=== PATIENT | female | born 1945 | race American Indian/Alaskan Native ===

== ENCOUNTER 2017-03-17 05:50 | Day surgery (SDC) | payer MEDICARE, OTHER ==
[~2017-03-17] VITALS: Ht 172.7 cm; Wt 79.4 kg
[~2017-03-17 05:50] MED LIST: ACETAMINOPHEN325 M1 PO; ALLOPURINOL300 MG PO; ASPIRIN EC325 MG PO; CYMBALTA60 MG PO; DUONEB 0.5 MG-33 ML IH; FLONASE2 SPRAY; GABAPENTIN300 MG PO; INDOMETHACIN25 MG PO; LANTUS SOL100 UNIT/1 SQ; LEVOTHYROXINE100 MCG PO; LIPITOR20 MG PO; LORATADINE10 MG PO; NORCO 5-325 TA1 EACH PO; NORVASC5 MG PO; OXYCONTIN20 MG PO; PENICILLIN V P250 MG PO; SEPTRA DS TABL1 EACH PO; SERTRALINE HCL100 MG PO; XANAX0.25 MG PO; ZOFRAN ODT4 MG PO; ZOFRAN ODT8 MG PO
--- NOTE | 2017-03-17 07:01 | NUR ---
warm blankets on. iv patent.
--- NOTE | 2017-03-17 07:13 | NUR ---
WITH RAYMOND AND VERSATAMARA ON BOARD, PT WAS STRUGGLING TO STAY AWAKE WHILE I WAS WITH HER. SHE HAD FAMILY THAT WAS VERY RECEPTIVE TO MY PRESENCE, AND ASKED IF I WOULD PRAY FOR THE PT WHILE I WAS PRESENT. FOLLOWING PRAYER, DR LALA CAME TO VISIT PT AND FAMILY. WILL FOLLOW NEEDED
--- NOTE | 2017-03-17 10:10 | NUR ---
03/17/17 1010 Izabel Alvarado 1003-PATIENT ARRIVED TO PACU ON 6L MASK O2 SAT 100% PATIENT REACTIVE EYES OPEN DENIES PAIN. SR WITH PAC RIGHT BBB HR 64. GLUCOSE 213. DRESSING TO LEFT FOOT CDI. JJ PEDAL PULSE. GOOD WARMTH DAVALOS REFILL LESS THAN 1 SECOND.
--- NOTE | 2017-03-17 12:34 | NUR ---
1210 AMB TO BR VOIDS QS. DRESSED AND READY TO GO HOME. NIECE UNDERSTANDS INSTRUCTIONS AND STATES ABLE TO ASSIST PT AT HOME.
--- NOTE | 2017-05-01 16:02 | OR ---
[facility] [address] [place], [place] [address] Signed PROCEDURE DATE: 03/17/17 PREOPERATIVE DIAGNOSES Hammertoe deformity, left foot, digits 1 through 4. Contracture of tendon and muscle, left foot, digits 2, 3, and 4. SURGEON: Chicho Lawson DPM RETAIL COVERAGE MERCHANDISER SURGEON: Ernie Manzanares DPM ESTIMATED BLOOD LOSS: Less than 5 cc or minimal. HEMOSTASIS: With ankle tourniquet. MATERIALS UTILIZED Two PIPJ hammertoe implants, one 2.0 screw and one 4.0 screw. The screws were cannulated. 4-0 Vicryl and 5-0 nylon were given. ANESTHESIA Anesthesia was provided by Casie Lang nurse supervisor opening and picking. Anesthesia was a regional anesthesia with popliteal block and IV sedation. PROCEDURE IN DETAIL The patient was brought into the operating room and placed upon the operating table in the supine position. Regional anesthesia was administered. Local anesthesia was also administered consisting of 15 cc of 1:1 mix of 2% lidocaine plain and 0.5% ropivacaine. The left foot was then scrubbed and prepped in the usual sterile technique. An Esmarch bandage was then wrapped around the patient's left foot and then wrapped around the ankle to act as tourniquet while being removed from the forefoot region. Attention was then directed to the dorsal aspect of the patient's left first digit. Two semi-elliptical converging incisions were performed over the IPJ, each incision was approximately 1.5 cm in length. The skin island was removed utilizing forceps and a 15-blade. [place]ka blade was then utilized to perform a transverse capsulotomy and tenotomy at the level of the IPJ via the original skin incision. The soft tissue was then freed from the head of the proximal phalanx. Collateral ligaments were also severed. A sagittal saw was utilized to remove the articular cartilage in the base of the distal phalanx and also portion of the head of the proximal phalanx. The toe was aligned and the cannulated screw was placed following standard AO fixation techniques. Attention was then directed to the patient's second, third, and fourth digits. Prominent extensor tendons and tight joint capsule was noted. A small incision running medial to laterally was performed over the joint areas of these digits, where the incisions were approximately 5 mm in length. A 64 Sitka blade was then utilized to perform a tenotomy Electronically Signed By: CHICHO LAWSON DPM 05/01/17 1602 PATIENT NAME: ARA CAMPOS OPERATIVE REPORT DATE OF : 47 PHYSICIAN: CHICHO LAWSON DPM REPORT #: [id number] REPORT IS CONFIDENTIAL AND NOT TO BE RELEASED WITHOUT AUTHORIZATION [facility] [address] [place], [place] [address] Signed and capsulotomy through the skin incision. Release of the soft tissue could be palpated with downward pressure of the digits. Following the release, the toes were more easily positioned into a rectus position. Attention was then directed to the dorsal aspect of the patient's second PIPJ digit. Two semi-elliptical converging incisions were performed at this time creating a skin island. This was removed with forceps, and a [place] blade was utilized to perform a transverse tenotomy and capsulotomy. The soft tissue was then reflected from the head of the proximal phalanx. A sagittal saw was then utilized to perform an osteotomy of the proximal phalanx removing the distal half of the head. Next, implant was then placed following factory guidelines in standard fixation techniques. A cannulated wire was driven from the base of the middle phalanx out the distal aspect of the digit. The base of the middle phalanx was repaired by denuding the articular surface. The implant was screwed into the base of the middle phalanx and then the stem of the implant placed into the medullary canal of the proximal phalanx and impacted bringing the distal aspect of the proximal phalanx and the base of the middle phalanx into close approximation. Skin stability was also noted. The same procedure was also performed on the third digit. Attention was then directed to the patient's fourth digit at the level of the PIPJ. Two semi-elliptical converging incisions were performed approximately 8 mm in length. The skin island was removed with forceps and a 15-blade. A 64-blade w a s utilized to perform a transverse tenotomy and capsulotomy at the level of PIPJ. Soft tissue was then reflected from the head of the proximal phalanx and the proximal phalanx. The head was then cut utilizing a sagittal saw removing the articular cartilage. The base of the middle phalanx cartilage was also denuded. A K-wire was passed through the base of the middle phalanx out the distal aspect of the digit and then retrograded back into the proximal phalanx medullary canal. A 2-0 screw was then placed utilizing the wire as the cannula. Positioning of the hardware was verified utilizing intraoperative fluoroscopy. Plating of the joint area was performed prior to fixation. The extensor tendons over the digits were then reapproximated and coapted utilizing a 4 -0 Vicryl. The skin was reapproximated and coapted utilizing 5-0 nylon in the interlocking suture technique. Stitching included areas over the joint regions, over the capsule and extensor tendon releases, and over the distal aspects of the digits as needed. Postoperative injection consisting of 5 mL of 0.5% ropivacaine, 1 mL of dexamethasone was injected about the patient's forefoot region. Surgical sites were then dressed with Betadine-soaked Adaptic, Betadine-soaked gauze, dry sterile gauze, fluff gauze, and Coban. The ankle tourniquet was removed. Prompt hyperemic response was noted to all digits of the patient's left foot. The patient tolerated both procedure and the anesthesia well, and following a period of postoperative monitoring, the patient was discharged to home with both written and oral instructions. Chicho Lawson DPM Electronically Signed By: CHICHO LAWSON DPM 05/01/17 1602 PATIENT NAME: ARA CAMPOS OPERATIVE REPORT DATE OF : 47 PHYSICIAN: CHICHO LAWSON DPM REPORT #: [id number] REPORT IS CONFIDENTIAL AND NOT TO BE RELEASED WITHOUT AUTHORIZATION [address] [place] [address] Signed SKY/Amy /[id number] Electronically Signed By: CHICHO LAWSON DPM 05/01/17 1602 PATIENT NAME: ARA CAMPOS OPERATIVE REPORT DATE OF : 47 PHYSICIAN: CHICHO LAWSON DPM REPORT #: [id number] REPORT IS CONFIDENTIAL AND NOT TO BE RELEASED WITHOUT AUTHORIZATION
== END 2017-03-17 12:15 | disposition home or self-care (01) ==
LOC: DS 05:50 → OPS 05:50 → DS 06:45 → OPS 06:45
PROVIDERS: Podiatrist Foot & Ankle Surgery
PROC: 0LXW0ZZ Transfer Left Foot Tendon, Open Approach (ICD-10-PCS; principal; 2017-03-17 06:45)
DX: M20.42 Other hammer toe(s) (acquired), left foot (principal); M62.472 Contracture of muscle, left ankle and foot; E11.9 Type 2 diabetes mellitus without complications; M19.90 Unspecified osteoarthritis, unspecified site; F17.210 Nicotine dependence, cigarettes, uncomplicated
CPT/HCPCS: 01480; 62322; 64445; 73620; 73630; 76942; C1713; C1769; J0690; J0735; J1100; J2250; J2704; J2795; J3010; J7120; L4386

== ENCOUNTER 2017-11-01 10:48 | Emergency (ER) | payer MEDICARE, OTHER ==
[~2017-11-01] VITALS: Ht 172.7 cm; Wt 79.4 kg
[~2017-11-01 10:48] MED LIST changes: +ARTIFICIAL TEAR15 M1 OPTH; +CALCIUM 500-VI1 EAC1 PO; +COZAAR50 MG PO; +DIFLUCAN150 MG PO; +DULOXETINE HCL20 MG; +FUROSEMIDE20 MG PO; +KEFLEX500 MG PO; +LEVOTHYROXINE75 MCG PO; +LIPITOR20 MG GT; +LITE COAT ASPI325 MG PO; +NEURONTIN100 MG PO; +OLOPATADINE HCL5 ML OD; +PANTOPRAZOLE SO40 MG PO
--- NOTE | 2017-11-01 21:36 | EKG ---
[facility] [address] [facility] [place] [address] Signed Sinus bradycardia with sinus arrhythmia Right bundle branch block Abnormal ECG Confirmed by GRACIELA GONZALES MD ([id number]) on 11/01/2017 9:36:22 PM Electronically Signed By: GRACIELA GONZALES MD 11/01/17 2136 PATIENT NAME: ANDRESARAJOHAN ANDRES Electrocardiogram DATE OF : 47 PHYSICIAN: GRACIELA GONZALES MD REPORT #: [id number] REPORT IS CONFIDENTIAL AND NOT TO BE RELEASED WITHOUT AUTHORIZATION
== END 2017-11-01 20:45 | disposition short-term general hospital (02) ==
LOC: ED 10:48
DX: E16.0 Drug-induced hypoglycemia without coma (principal); E11.649 Type 2 diabetes mellitus with hypoglycemia without coma; T38.3X5A Adverse effect of insulin and oral hypoglycemic [antidiabetic] drugs, initial encounter; N19 Unspecified kidney failure; R55 Syncope and collapse; I10 Essential (primary) hypertension; E11.40 Type 2 diabetes mellitus with diabetic neuropathy, unspecified; Z88.8 Allergy status to other drugs, medicaments and biological substances; Z79.4 Long term (current) use of insulin; Z79.899 Other long term (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; Z79.82 Long term (current) use of aspirin
CPT/HCPCS: 51702; 71045; 80053; 81001; 83605; 84484; 85025; 87040; 93005; 93010; 96361; 96374; 99285; J7030

== ENCOUNTER 2018-09-30 20:45 | Emergency (ER) | payer MEDICARE, OTHER ==
[~2018-09-30] VITALS: Ht 172.7 cm; Wt 79.4 kg
--- OUTSIDE RECORDS SUMMARY | 2018-09-30 20:50 | XMS ---
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 Mikala VISIT COUNT (12 MO.) [address] [place] [address] TOTAL 6 NOTE: Visits indicate total known visits. ED/UCC VISIT TRACKING (12 MO.) 09/30/2018 20:[address] [facility] TYPE: Emergency COMPLAINT: - CHEST PAIN 08/31/2018 02:[facility] [place] TYPE: Emergency DIAGNOSES: - Shortness of Breath - Fluid overload, unspecified - Congestion/Difficulty Breathing/Emesis 08/18/2018 17:[facility] [place] TYPE: Emergency DIAGNOSES: - Shortness of Breath - Pleural effusion, not elsewhere classified - End stage renal disease - Difficulty Breathing, Swollen Legs 07/07/2018 07:19 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 - Allergy status to other drugs, medicaments and biological substances status - Essential (primary) hypertension - Unspecified kidney failure - Drug-induced hypoglycemia without coma - Adverse effect of insulin and oral hypoglycemic [antidiabetic] drugs, initial encounter 10/01/2017 14:31 [facility] [place] TYPE: Emergency COMPLAINT: - HIGH BLOOD PRESSURE DIAGNOSES: - Unstable angina - Allergy status to other drugs, medicaments and biological substances status - Personal history of urinary (tract) infections - Chronic kidney disease, stage 4 (severe) - Localized swelling, mass and lump, lower limb, bilateral - Personal history of transient ischemic attack (TIA), and cerebral infarction without residual deficits - OTHER SPECIFIED POSTPROCEDURAL STATES - Hypothyroidism, unspecified - Type 2 diabetes mellitus with diabetic chronic kidney disease - Type 2 diabetes mellitus with diabetic neuropathy, unspecified - Acquired absence of left breast and nipple - Heart failure, unspecified - snf (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 - Major depressive disorder, single episode, unspecified - Other specified postprocedural states - Acquired absence of both cervix and uterus - Hypertensive heart and chronic kidney disease with heart failure and stage 1 through stage 4 chronic kidney disease, or unspecified chronic kidney disease - Other meterman (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 - Personal history of malignant neoplasm of breast - Allergy status to analgesic agent status INPATIENT VISIT TRACKING (12 MO.) 08/31/2018 02:09 [facility] [place] TYPE: General Medicine DIAGNOSES: - Pleural effusion, not elsewhere classified - Essential (primary) hypertension - Fluid overload, unspecified - Lobar pneumonia, unspecified organism 07/07/2018 07:19 [facility] [place] TYPE: General Medicine DIAGNOSES: - Lobar pneumonia, unspecified organism - Cough 11/01/2017 21:31 [facility] TYPE: Surgical Services DIAGNOSES: - Chronic kidney disease, stage 5 - Sepsis, unspecified organism - snf (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 - 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 or end stage renal disease - Hypothermia - Bacteremia - Dependence on renal dialysis - Essential (primary) hypertension - Type 2 diabetes mellitus with diabetic chronic kidney disease - End stage renal disease - Hypoglycemia - Hypothermia, initial encounter - Anemia in chronic kidney disease - needs AV shunt - Unspecified kidney failure - Hypoglycemia, unspecified - Unspecified severe protein-calorie malnutrition 10/01/2017 20:50 [facility] TYPE: Medical Surgical DIAGNOSES: - Anemia in chronic kidney disease - Hypertensive emergency - Chronic kidney disease, stage 4 (severe) - Heart failure, unspecified - Type 2 diabetes mellitus with diabetic chronic kidney disease - Other specified soft tissue disorders - Chest pain, unspecified - 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
[2018-09-30] MEDS ORDERED: SERTRALINE HCL50 MG PO (21:23)
--- NOTE | 2018-10-01 13:41 | EKG ---
[facility] [address] [facility] [place] [address] Signed Sinus rhythm with short TX Right bundle branch block Abnormal ECG When compared with ECG of 01-NOV-2017 11:13, Vent. rate has increased BY 26 BPM Questionable change in QRS duration Confirmed by OLLIE PALAFOX DO ([id number]) on 10/01/2018 1:41:23 PM Electronically Signed By: OLLIE PALAFOX DO 10/01/18 1341 PATIENT NAME: ARA CAMPOS Electrocardiogram DATE OF : 47 PHYSICIAN: OLLIE PALAFOX DO REPORT #: [id number] REPORT IS CONFIDENTIAL AND NOT TO BE RELEASED WITHOUT AUTHORIZATION
== END 2018-10-01 00:25 | disposition home or self-care (01) ==
LOC: ED 20:45
DX: R07.9 Chest pain, unspecified (principal); I10 Essential (primary) hypertension; F32.9 Major depressive disorder, single episode, unspecified; Z87.440 Personal history of urinary (tract) infections; E03.9 Hypothyroidism, unspecified; E11.40 Type 2 diabetes mellitus with diabetic neuropathy, unspecified; I25.10 Atherosclerotic heart disease of native coronary artery without angina pectoris; Z85.3 Personal history of malignant neoplasm of breast; Z87.891 Personal history of nicotine dependence; Z88.8 Allergy status to other drugs, medicaments and biological substances; Z79.4 Long term (current) use of insulin; Z79.899 Other long term (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
CPT/HCPCS: 71045; 80053; 84484; 85025; 93005; 93010; 96374; 96375; 99285-25; J1170; J2405

== ENCOUNTER 2018-11-18 10:29 | Emergency (ER) | payer MEDICARE, OTHER ==
[~2018-11-18] VITALS: Ht 172.7 cm; Wt 74.8 kg
[~2018-11-18 10:29] MED LIST changes: -LIPITOR20 MG GT; +SERTRALINE HCL50 MG PO
--- OUTSIDE RECORDS SUMMARY | 2018-11-18 10:42 | XMS ---
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 Care History Medical/Surgical 10/03/2018 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 \T\middot;\T\nbsp; PLEASE REFER PATIENT TO [facility] FOR NON EMERGENT MEDICAL NEEDS. \T\middot;\ T\nbsp; [facility] CAN SEE PATIENTS SAME DAY FOR APTS IF PATIENT CALLS FIRST THING IN THE MORNING. E.D. VISIT COUNT ([address] [facility] [address] [facility] TOTAL 5 NOTE: Visits indicate total known visits. ED/UCC VISIT TRACKING (12 MO.) 11/18/2018 10:38 [facility] [place] TYPE: Emergency COMPLAINT: - FALL/LOWER BACK PAIN 09/30/2018 20:46 [facility] [place] TYPE: Emergency COMPLAINT: - CHEST PAIN DIAGNOSES: - Chest pain, unspecified - Allergy status to other drugs, medicaments and biological substances status - Personal history of urinary (tract) infections - Personal history of nicotine dependence - Atherosclerotic heart disease of [place] coronary artery without angina pectoris - Major depressive disorder, single episode, unspecified - Essential (primary) hypertension - Hypothyroidism, unspecified - half-way (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 - Personal history of malignant neoplasm of breast - Other senior living (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 - Type 2 diabetes mellitus with diabetic neuropathy, unspecified 08/31/2018 02:09 [facility] [place] TYPE: Emergency DIAGNOSES: - Shortness of Breath - Fluid overload, unspecified - Congestion/Difficulty Breathing/Emesis 08/18/2018 17:10 [facility] ID TYPE: Emergency DIAGNOSES: - Shortness of Breath - Pleural effusion, not elsewhere classified - End stage renal disease - Difficulty Breathing, Swollen Legs 07/07/2018 07:19 [facility] [place] ID TYPE: Emergency DIAGNOSES: - Cough - Lobar pneumonia, unspecified organism - Pneumonia, unspecified organism - Cough - Shortness of Breath INPATIENT VISIT TRACKING (12 MO.) 08/31/2018 02:09 [facility] ID TYPE: General Medicine DIAGNOSES: - Pleural effusion, not elsewhere classified - Essential (primary) hypertension - Fluid overload, unspecified - Lobar pneumonia, unspecified organism 07/07/2018 07:19 [facility] ID TYPE: General Medicine DIAGNOSES: - Lobar pneumonia, unspecified organism - Cough [email or web address]
[2018-11-18] MEDS ORDERED: NORCO 5-325 TA1 EACH PO (13:52)
== END 2018-11-18 14:08 | disposition home or self-care (01) ==
LOC: ED 10:29
DX: S30.1XXA Contusion of abdominal wall, initial encounter (principal); I12.9 Hypertensive chronic kidney disease with stage 1 through stage 4 chronic kidney disease, or unspecified chronic kidney disease; E11.22 Type 2 diabetes mellitus with diabetic chronic kidney disease; N18.9 Chronic kidney disease, unspecified; E03.9 Hypothyroidism, unspecified; E11.40 Type 2 diabetes mellitus with diabetic neuropathy, unspecified; F32.9 Major depressive disorder, single episode, unspecified; I25.10 Atherosclerotic heart disease of native coronary artery without angina pectoris; Z85.3 Personal history of malignant neoplasm of breast; Z99.2 Dependence on renal dialysis; Z79.899 Other long term (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; Z88.8 Allergy status to other drugs, medicaments and biological substances; Z79.4 Long term (current) use of insulin; W01.10XA Fall on same level from slipping, tripping and stumbling with subsequent striking against unspecified object, initial encounter; Y92.002 Bathroom of unspecified non-institutional (private) residence as the place of occurrence of the external cause
CPT/HCPCS: 71046; 74176; 80053; 81001; 83690; 85025; 96374; 99284-25; J3010

== ENCOUNTER 2018-11-22 23:03 | Emergency (ER) | payer MEDICARE, OTHER ==
[~2018-11-22] VITALS: Ht 172.7 cm; Wt 74.8 kg
--- OUTSIDE RECORDS SUMMARY | 2018-11-22 23:06 | XMS ---
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 Care History Medical/Surgical 10/03/2018 [facility] \T\middot;\T\nbsp; PATIENT IS A [employer] MEMBER. \T\middot;\T\nbsp; PLEASE REFER PATIENT TO [facility] FOR NON EMERGENT MEDICAL NEEDS. \T\middot;\ T\nbsp; [facility] CAN SEE PATIENTS SAME DAY FOR APTS IF PATIENT CALLS FIRST THING IN THE MORNING. E.D. VISIT COUNT ([address] [facility] 3 [facility] TOTAL 6 NOTE: Visits indicate total known visits. ED/UCC VISIT TRACKING (12 MO.) 11/22/2018 23:03 [facility] [place] TYPE: Emergency COMPLAINT: - FALL 11/18/2018 10:38 [facility] [place] TYPE: Emergency COMPLAINT: - FALL/LOWER BACK PAIN DIAGNOSES: - Type 2 diabetes mellitus with diabetic neuropathy, unspecified - Left upper quadrant pain - Contusion of abdominal wall, initial encounter - manager intermediate (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 - Bathroom of unspecified non-institutional (private) residence single-family (private) house as the place of occurrence of the external cause - Personal history of malignant neoplasm of breast - Other manager intermediate (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 - Allergy status to other drugs, medicaments and biological substances status - Dependence on renal dialysis - Hypertensive chronic kidney disease with stage 1 through stage 4 chronic kidney disease, or unspecified chronic kidney disease - Type 2 diabetes mellitus with diabetic chronic kidney disease - Hypothyroidism, unspecified - Atherosclerotic heart disease of [place] coronary artery without angina pectoris - Major depressive disorder, single episode, unspecified - Chronic kidney disease, unspecified - Fall on same level from slipping, tripping and stumbling with subsequent striking against unspecified object, initial encounter 09/30/2018 20:[address] [facility] [place] TYPE: Emergency COMPLAINT: - CHEST PAIN DIAGNOSES: - Chest pain, unspecified - Allergy status to other drugs, medicaments and biological substances status - Personal history of urinary (tract) infections - Personal history of nicotine dependence - Atherosclerotic heart disease of [place] coronary artery without angina pectoris - Major depressive disorder, single episode, unspecified - Essential (primary) hypertension - Hypothyroidism, unspecified - correction (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 - Personal history of malignant neoplasm of breast - Other manager intermediate (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 - Type 2 diabetes mellitus with diabetic neuropathy, unspecified 08/31/2018 02:09 [facility] [place] TYPE: Emergency DIAGNOSES: - Shortness of Breath - Fluid overload, unspecified - Congestion/Difficulty Breathing/Emesis 08/18/2018 17:10 [facility] [place] TYPE: Emergency DIAGNOSES: - Shortness of Breath - Pleural effusion, not elsewhere classified - End stage renal disease - Difficulty Breathing, Swollen Legs 07/07/2018 07:19 [facility] [place] TYPE: Emergency DIAGNOSES: - Cough - Lobar pneumonia, unspecified organism - Pneumonia, unspecified organism - Cough - Shortness of Breath INPATIENT VISIT TRACKING (12 MO.) 08/31/2018 02:09 [facility] ID TYPE: General Medicine DIAGNOSES: - Pleural effusion, not elsewhere classified - Essential (primary) hypertension - Fluid overload, unspecified - Lobar pneumonia, unspecified organism 07/07/2018 07:19 [facility] ID TYPE: General Medicine DIAGNOSES: - Lobar pneumonia, unspecified organism - Cough [email or web address]
[2018-11-23] MEDS ORDERED: NORCO 5-325 TA1 EACH PO (01:27)
== END 2018-11-23 02:30 | disposition home or self-care (01) ==
LOC: ED 23:03
DX: S09.90XA Unspecified injury of head, initial encounter (principal); M25.511 Pain in right shoulder; M25.551 Pain in right hip; F32.9 Major depressive disorder, single episode, unspecified; E03.9 Hypothyroidism, unspecified; E11.40 Type 2 diabetes mellitus with diabetic neuropathy, unspecified; I10 Essential (primary) hypertension; I25.10 Atherosclerotic heart disease of native coronary artery without angina pectoris; Z85.3 Personal history of malignant neoplasm of breast; Z86.73 Personal history of transient ischemic attack (TIA), and cerebral infarction without residual deficits; Z87.440 Personal history of urinary (tract) infections; Z99.2 Dependence on renal dialysis; Z88.8 Allergy status to other drugs, medicaments and biological substances; Z79.899 Other long term (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; W01.10XA Fall on same level from slipping, tripping and stumbling with subsequent striking against unspecified object, initial encounter
CPT/HCPCS: 70450; 73030; 73502; 99284-25

== ENCOUNTER 2019-05-01 08:40 | Emergency (ER) | payer MEDICARE, OTHER ==
[~2019-05-01] VITALS: Ht 172.7 cm; Wt 74.8 kg
[~2019-05-01 08:40] MED LIST changes: +ASPIR 8181 MG PO; +CALCIUM ACETAT667 MG PO; +CEFEPIME HCL1 GM INJ; +CHOLECALCIFEROL1 GM MISC; +FUROSEMIDE80 MG PO; +HYDRALAZINE HCL25 MG PO; +LABETALOL HCL200 MG PO; +NEPHRO-VITE TA0.8 MG PO; +PERCOCET 5-3251 EACH PO; +VANCOMYCIN HCL500 MG IV
--- OUTSIDE RECORDS SUMMARY | 2019-05-01 08:44 | XMS ---
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 Security Console Attendant Events No recent Security Events currently on file CRITERIA MET - Group Notification - 6 ED Visits in [address] [facility] - Has Care Guidelines - PDMP - [facility] - 2 Visits in 30 Days CARE PROVIDERS YVETTE SIMON Physician Stone Setter: Surgical 11/23/2018-Current PHONE: Unknown Name Unknown Assisted Facility Current PHONE: [phone] RUI HODGE [facility] 10/03/2018-Current PHONE: Unknown PUJA IVEY Nurse Practitioner 04/04/2019-Current PHONE: [phone] [facility] Primary Care 01/11/2015-[facility] PHONE: Unknown Bertrand has no Care Guidelines for this patient. Care History Medical/Surgical 10/03/2018 [facility] \T\middot;\T\nbsp; PATIENT IS A [facility] MEMBER. \T\middot;\T\nbsp; PLEASE REFER PATIENT TO [facility] FOR NON EMERGENT MEDICAL NEEDS. \T\middot;\ T\nbsp; [facility] CAN SEE PATIENTS SAME DAY FOR APTS IF PATIENT CALLS FIRST THING IN THE MORNING. [facility].D. [facility]12 MO.) [facility] 7 [facility] TOTAL 11 NOTE: Visits indicate total known visits. ED/UCC VISIT TRACKING (12 MO.) 05/01/2019 08:41 [facility] [place] TYPE: Emergency COMPLAINT: - HIGH BP 04/27/2019 02:37 [facility] Goldberg [place] TYPE: Emergency COMPLAINT: - MULTIPLE COMPLAINT DIAGNOSES: - Unspecified injury of head, initial encounter - cash processor (current) use of aspirin - Hypothyroidism, unspecified - Dependence on renal dialysis - Strain of muscle, fascia and tendon at neck level, initial encounter - Type 2 diabetes mellitus with diabetic neuropathy, unspecified - Contusion of unspecified part of head, initial encounter - Essential (primary) hypertension - Allergy status to analgesic agent status - Type 2 diabetes mellitus with diabetic cataract - Concussion without loss of consciousness, initial encounter - Other intermediate (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 - Fall on same level from slipping, tripping and stumbling with subsequent striking against other object, initial encounter - Personal history of malignant neoplasm of breast - Allergy status to other drugs, medicaments and biological substances status 04/04/2019 17:35 RAD[facility] Goldberg [place] TYPE: Emergency COMPLAINT: - SHAKY,ALTERED LOC DIAGNOSES: - Allergy status to other drugs, medicaments and biological substances status - Weakness - Personal history of malignant neoplasm of breast - Other library services dean (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 - Type 2 diabetes mellitus with diabetic neuropathy, unspecified - Hypothyroidism, unspecified - 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 or end stage renal disease - Allergy status to analgesic agent status - Type 2 diabetes mellitus with diabetic chronic kidney disease - Type 2 diabetes mellitus with diabetic cataract - Dependence on renal dialysis - Personal history of transient ischemic attack (TIA), and cerebral infarction without residual deficits - FPC (current) use of aspirin - End stage renal disease - Major depressive disorder, single episode, unspecified 04/03/2019 14:36 [facility] [place] TYPE: Emergency COMPLAINT: - WEAKNESS DIAGNOSES: - Hypothyroidism, unspecified - Allergy status to analgesic agent status - Other intermediate (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 - Allergy status to other drugs, medicaments and biological substances status - Essential (primary) hypertension - FPC (current) use of aspirin - Type 2 diabetes mellitus with diabetic neuropathy, unspecified - Weakness - Type 2 diabetes mellitus with diabetic cataract - Personal history of transient ischemic attack (TIA), and cerebral infarction without residual deficits - Personal history of malignant neoplasm of breast 03/23/2019 17:03 [facility] Reina RomanAguila PERES TYPE: Emergency DIAGNOSES: - Pain in thoracic spine - Osteomyelitis, unspecified - back pain - Rib Pain - Discitis, unspecified, site unspecified 11/22/2018 23:03 RADHA Cuello TYPE: Emergency COMPLAINT: - FALL DIAGNOSES: - Essential (primary) hypertension - Atherosclerotic heart disease of [place] coronary artery without angina pectoris - Type 2 diabetes mellitus with diabetic neuropathy, unspecified - Personal history of transient ischemic attack (TIA), and cerebral infarction without residual deficits - Dependence on renal dialysis - Major depressive disorder, single episode, unspecified - Allergy status to other drugs, medicaments and biological substances status - Unspecified injury of head, initial encounter - Other library services dean (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 - Fall on same level from slipping, tripping and stumbling with subsequent striking against unspecified object, initial encounter - Hypothyroidism, unspecified - Personal history of malignant neoplasm of breast - Pain in right shoulder - Pain in right hip - Personal history of urinary (tract) infections 11/18/2018 10:38 RADHA Cuello TYPE: Emergency COMPLAINT: - FALL/LOWER BACK PAIN DIAGNOSES: - Type 2 diabetes mellitus with diabetic neuropathy, unspecified - Left upper quadrant pain - Contusion of abdominal wall, initial encounter - FPC (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 - Bathroom of unspecified non-institutional (private) residence single-family (private) house as the place of occurrence of the external cause - Personal history of malignant neoplasm of breast - Other library services dean (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 - Allergy status to other drugs, medicaments and biological substances status - Dependence on renal dialysis - Hypertensive chronic kidney disease with stage 1 through stage 4 chronic kidney disease, or unspecified chronic kidney disease - Type 2 diabetes mellitus with diabetic chronic kidney disease - Hypothyroidism, unspecified - Atherosclerotic heart disease of [place] coronary artery without angina pectoris - Major depressive disorder, single episode, unspecified - Chronic kidney disease, unspecified - Fall on same level from slipping, tripping and stumbling with subsequent striking against unspecified object, initial encounter 09/30/2018 20:46 RADHA Cuello TYPE: Emergency COMPLAINT: - CHEST PAIN DIAGNOSES: - Chest pain, unspecified - Allergy status to other drugs, medicaments and biological substances status - Personal history of urinary (tract) infections - Personal history of nicotine dependence - Atherosclerotic heart disease of [place] coronary artery without angina pectoris - Major depressive disorder, single episode, unspecified - Essential (primary) hypertension - Hypothyroidism, unspecified - FPC (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 - Personal history of malignant neoplasm of breast - Other intermediate (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 - Type 2 diabetes mellitus with diabetic neuropathy, unspecified 08/31/2018 02:09 [facility] TYPE: Emergency DIAGNOSES: - Shortness of Breath - Fluid overload, unspecified - Congestion/Difficulty Breathing/Emesis 08/18/2018 17:10 [facility] ID TYPE: Emergency DIAGNOSES: - Shortness of Breath - Pleural effusion, not elsewhere classified - End stage renal disease - Difficulty Breathing, Swollen Legs 07/07/2018 07:19 [facility] Moise ID TYPE: Emergency DIAGNOSES: - Cough - Lobar pneumonia, unspecified organism - Pneumonia, unspecified organism - Cough - Shortness of Breath INPATIENT VISIT TRACKING (12 MO.) 03/24/2019 00:55 [facility] Panchito PERES M.C. TYPE: Nephrology DIAGNOSES: - Dependence on renal dialysis - End stage renal disease - Essential (primary) hypertension - Osteomyelitis, unspecified - Type 2 diabetes mellitus with diabetic chronic kidney disease - cash processor (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 - Chronic kidney disease, stage 4 (severe) - Secondary multiple arthritis - Discitis, unspecified, thoracic region 12/04/2018 13[facility] DIAGNOSES: - Type 2 diabetes mellitus with diabetic chronic kidney disease - Renal osteodystrophy - FPC (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 - Fracture of unspecified part of neck of right femur, subsequent encounter for closed fracture with routine healing - Other malaise - Chronic kidney disease, stage 5 - Patient's noncompliance with other medical treatment and regimen - Fracture of unspecified part of neck of right femur, initial encounter for closed fracture - 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 or end stage renal disease - Chronic kidney disease, stage 4 (severe) - End stage renal disease - Anemia in chronic kidney disease 08/31/2018 02:09 [facility] ID TYPE: General Medicine DIAGNOSES: - Pleural effusion, not elsewhere classified - Essential (primary) hypertension - Fluid overload, unspecified - Lobar pneumonia, unspecified organism 07/07/2018 07:19 [facility] ID TYPE: General Medicine DIAGNOSES: - Lobar pneumonia, unspecified organism - Cough [email or web address]
[2019-05-01] MEDS ORDERED: CLONIDINE1 EAC2 TD (08:59)
[2019-05-01] MEDS ORDERED: LABETALOL HCL300 MG PO (09:00)
== END 2019-05-01 09:56 | disposition home or self-care (01) ==
LOC: ED 08:40
DX: I10 Essential (primary) hypertension (principal); R79.82 Elevated C-reactive protein (CRP); Z99.2 Dependence on renal dialysis; F32.9 Major depressive disorder, single episode, unspecified; E03.9 Hypothyroidism, unspecified; E11.40 Type 2 diabetes mellitus with diabetic neuropathy, unspecified; E11.36 Type 2 diabetes mellitus with diabetic cataract; Z85.3 Personal history of malignant neoplasm of breast; Z86.73 Personal history of transient ischemic attack (TIA), and cerebral infarction without residual deficits; Z88.8 Allergy status to other drugs, medicaments and biological substances; Z88.6 Allergy status to analgesic agent; Z79.899 Other long term (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; Z79.82 Long term (current) use of aspirin
CPT/HCPCS: 85651; 86140; 99283

== ENCOUNTER 2019-05-20 15:22 | Emergency (ER) | payer MEDICARE, OTHER ==
[~2019-05-20] VITALS: Ht 172.7 cm; Wt 74.8 kg
[~2019-05-20 15:22] MED LIST changes: +CLONIDINE1 EAC2 TD; +LABETALOL HCL300 MG PO
--- OUTSIDE RECORDS SUMMARY | 2019-05-20 15:24 | XMS ---
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 Security Control Board Operator Events No recent Security Events currently on file CRITERIA MET - Group Notification - 6 ED Visits in 6 Months - [facility] - Has Care Guidelines - PDMP - [facility] - 2 Visits in 30 Days CARE PROVIDERS YVETTE SIMON Physician Fire Range Technician: Surgical 11/23/2018-Current PHONE: Unknown Name Unknown Alf Facility Current PHONE: [phone] RUI HODGE [facility] 10/03/2018-Current PHONE: Unknown PUJA IVEY Nurse Practitioner 04/04/2019-Current PHONE: [phone] [facility] Primary Care 01/11/2015-[facility] PHONE: Unknown Bertrand has no Care Guidelines for this patient. Care History Medical/Surgical 10/03/2018 [facility] \T\middot;\T\nbsp; PATIENT IS A [facility] MEMBER. \T\middot;\T\nbsp; PLEASE REFER PATIENT TO [facility] FOR NON EMERGENT MEDICAL NEEDS. \T\middot;\ T\nbsp; [facility] CAN SEE PATIENTS SAME DAY FOR APTS IF PATIENT CALLS FIRST THING IN THE MORNING. E.D. VISIT COUNT (12 MO.) 1 [facility] 8 [facility] TOTAL 12 NOTE: Visits indicate total known visits. ED/UCC VISIT TRACKING (12 MO.) 05/20/2019 15:22 [facility] Goldberg [place] TYPE: Emergency COMPLAINT: - SOB 05/01/2019 08:41 RADHA Goldberg [place] TYPE: Emergency COMPLAINT: - HIGH BP DIAGNOSES: - long term care pharmacist (current) use of aspirin - Essential (primary) hypertension - Hypothyroidism, unspecified - Elevated C-reactive protein (CRP) - Dependence on renal dialysis - Allergy status to other drugs, medicaments and biological substances status - Personal history of transient ischemic attack (TIA), and cerebral infarction without residual deficits - Personal history of malignant neoplasm of breast - Major depressive disorder, single episode, unspecified - Type 2 diabetes mellitus with diabetic neuropathy, unspecified - Type 2 diabetes mellitus with diabetic cataract - Other mcfp (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 - Allergy status to analgesic agent status 04/27/2019 02:37 RAD[facility] Goldberg [place] TYPE: Emergency COMPLAINT: - MULTIPLE COMPLAINT DIAGNOSES: - Unspecified injury of head, initial encounter - long term care pharmacist (current) use of aspirin - Hypothyroidism, unspecified [...] loss of consciousness, initial encounter - Other mcfp (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 - Fall on same [...] of malignant neoplasm of breast - Other mcfp (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 - Type 2 diabetes [...] and cerebral infarction without residual deficits - long term care pharmacist (current) use of aspirin - End stage renal disease - Major depressive disorder, single episode, unspecified 04/03/2019 14:36 RADHA Cuello TYPE: Emergency COMPLAINT: - WEAKNESS DIAGNOSES: - Hypothyroidism, unspecified - Allergy status to analgesic agent status - Other mcfp (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 - Allergy status to other drugs, medicaments and biological substances status - Essential (primary) hypertension - intermediate (current) use of aspirin - Type 2 diabetes mellitus with diabetic neuropathy, unspecified - Weakness - Type 2 diabetes mellitus with diabetic cataract - Personal history of transient ischemic attack (TIA), and cerebral infarction without residual deficits - Personal history of malignant neoplasm of breast 03/23/2019 17[facility] DIAGNOSES: - Pain in thoracic spine - Osteomyelitis, unspecified - back pain - Rib Pain - Discitis, unspecified, site unspecified 11/22/2018 23:03 RADHA Cuello TYPE: Emergency COMPLAINT: - FALL DIAGNOSES: - Essential (primary) hypertension - Atherosclerotic heart disease of [place] coronary artery without angina pectoris - Type 2 diabetes mellitus with diabetic neuropathy, unspecified - Personal history of transient ischemic attack (TIA), and cerebral infarction without residual deficits - Dependence on renal dialysis - Major depressive disorder, single episode, unspecified - Allergy status to other drugs, medicaments and biological substances status - Unspecified injury of head, initial encounter - Other terminal press operator (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 - Fall on same level from slipping, tripping and stumbling with subsequent striking against unspecified object, initial encounter - Hypothyroidism, unspecified - Personal history of malignant neoplasm of breast - Pain in right shoulder - Pain in right hip - Personal history of urinary (tract) infections 11/18/2018 10:38 RAD[facility] Goldberg [place] TYPE: Emergency COMPLAINT: - FALL/LOWER BACK PAIN DIAGNOSES: - Type 2 diabetes mellitus with diabetic neuropathy, unspecified - Left upper quadrant pain - Contusion of abdominal wall, initial encounter - intermediate (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 - Bathroom of unspecified non-institutional (private) residence single-family (private) house as the place of occurrence of the external cause - Personal history of malignant neoplasm of breast - Other mcfp (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 - Allergy status to other drugs, medicaments and biological substances status - Dependence on renal dialysis - Hypertensive chronic kidney disease with stage 1 through stage 4 chronic kidney disease, or unspecified chronic kidney disease - Type 2 diabetes mellitus with diabetic chronic kidney disease - Hypothyroidism, unspecified - Atherosclerotic heart disease of [place] coronary artery without angina pectoris - Major depressive disorder, single episode, unspecified - Chronic kidney disease, unspecified - Fall on same level from slipping, tripping and stumbling with subsequent striking against unspecified object, initial encounter 09/30/2018 20:46 RAD[facility] Goldberg [place] TYPE: Emergency COMPLAINT: - CHEST PAIN DIAGNOSES: - Chest pain, unspecified - Allergy status to other drugs, medicaments and biological substances status - Personal history of urinary (tract) infections - Personal history of nicotine dependence - Atherosclerotic heart disease of [place] coronary artery without angina pectoris - Major depressive disorder, single episode, unspecified - Essential (primary) hypertension - Hypothyroidism, unspecified - long term care pharmacist (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 - Personal history of malignant neoplasm of breast - Other terminal press operator (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 - Type 2 diabetes mellitus with diabetic neuropathy, unspecified 08/31/2018 02:09 [facility] ID TYPE: Emergency DIAGNOSES: - Shortness of Breath - Fluid overload, unspecified - Congestion/Difficulty Breathing/Emesis 08/18/2018 17:10 [facility] ID TYPE: Emergency DIAGNOSES: - Shortness of Breath - Pleural effusion, not elsewhere classified - End stage renal disease - Difficulty Breathing, Swollen Legs 07/07/2018 07:19 [facility] ID TYPE: Emergency DIAGNOSES: - Cough - Lobar pneumonia, unspecified organism - Pneumonia, unspecified organism - Cough - Shortness of Breath INPATIENT VISIT TRACKING (12 MO.) 03/24/2019 00:55 [facility] Panchito PERES M.C. TYPE: Nephrology DIAGNOSES: - Dependence on renal dialysis - End stage renal disease - Essential (primary) hypertension - Osteomyelitis, unspecified - Type 2 diabetes mellitus with diabetic chronic kidney disease - intermediate (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 - Chronic kidney disease, stage 4 (severe) - Secondary multiple arthritis - Discitis, unspecified, thoracic region 12/04/2018 13:34 [facility] DIAGNOSES: - Type 2 diabetes mellitus with diabetic chronic kidney disease - Renal osteodystrophy - intermediate (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 - Fracture of [...] Anemia in chronic kidney disease 08/31/2018 02:[facility] Moise ID TYPE: General Medicine DIAGNOSES: - Pleural effusion, not elsewhere classified - Essential (primary) hypertension - Fluid overload, unspecified - Lobar pneumonia, unspecified organism 07/07/2018 07:19 [facility] Moise ID TYPE: General Medicine DIAGNOSES: - Lobar pneumonia, unspecified organism - Cough [email or web address]
== END 2019-05-20 19:10 | disposition short-term general hospital (02) ==
LOC: ED 15:22
DX: I13.0 Hypertensive heart and chronic kidney disease with heart failure and stage 1 through stage 4 chronic kidney disease, or unspecified chronic kidney disease (principal); I50.9 Heart failure, unspecified; N18.6 End stage renal disease; E11.40 Type 2 diabetes mellitus with diabetic neuropathy, unspecified; E11.36 Type 2 diabetes mellitus with diabetic cataract; Z99.2 Dependence on renal dialysis; Z85.3 Personal history of malignant neoplasm of breast; Z88.6 Allergy status to analgesic agent; Z88.3 Allergy status to other anti-infective agents; Z88.8 Allergy status to other drugs, medicaments and biological substances; Z79.82 Long term (current) use of aspirin; Z79.899 Other long term (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
CPT/HCPCS: 71045; 80053; 83880; 84484; 85025; 99285-25

== ENCOUNTER 2019-07-27 14:46 | Emergency (ER) | payer MEDICARE, OTHER ==
[~2019-07-27] VITALS: Ht 172.7 cm; Wt 74.8 kg
--- OUTSIDE RECORDS SUMMARY | ~2019-07-27 | XMS | Encounter Summary ---
Demographics + + + | Address | [address] | | | [place] [address] | + + + | Home Phone | | + + + | Preferred Language | Unknown | + + + | Marital Status | Single | + + + | Yazidism Affiliation | Unknown | + + + | Race | Unknown | + + + | Ethnic Group | Unknown | + + + Author + + + | Author | [facility] | | | and [place] | + + + | Organization | [facility] | | | and [place] | + + + | Address | Unknown | + + + | Phone | Unavailable | + + + Support + + + + + | Name | Relationship | Address | Phone | + + + + + | India Tilley | ECON | [address] | | | | | [place], [place] | | | | | [address] | | + + + + + | Yina La | ECON | Unknown | | + + + + + | Yina Peterson | ECON | Unknown | | + + + + + | Leatha Casillas | ECON | Unknown | | + + + + + Care Team Providers + +------+ + | Care Locks Inspector Name | Role | Phone | + +------+ + PCP | Unavailable | + +------+ + Encounter Details +--------+ + + + + | Date | Type | Department | Care Team | Description | +--------+ + + + + | 11/08/ | [facility] | [facility] | Provider, | | | 2018 | Exam | [facility] | [address] | | | | | IMAGING | [address] | | | | | [phone] | [place] [address] | | +--------+ + + + + Social History + +-------+ +--------+------+ | Tobacco Use | Types | Packs/Day | Years | Date | | | | | Used | | + +-------+ +--------+------+ | Never Assessed | | | | | + +-------+ +--------+------+ + + + | Sex Assigned at [...] + + documented as of this encounter Plan of Treatment Not on filedocumented as of this encounter Procedures + +--------+ + + + | Procedure Name | Priori | Date/Time | Associated Diagnosis | Comments | | | ty | | | | + +--------+ + + + | XR CHEST 2 VIEWS | Routin | 12/17/2007 | | Results for this | | | e | 2:30 PM | | procedure are in the | | | | PDT | | results section. | + +--------+ + + + documented in this encounter Results XR Chest 2 VW (12/17/2007 2:30 PM PDT) + + | Specimen | + + | | + + + + + | Narrative | Performed At | + + + | External films for comparison only - no result from [place]. | [facility] | + + + + +---------+ + + | Performing | Address | City/State/Zipcode | Phone Number | | Organization | | | | + +---------+ + + | [facility] | | | | + +---------+ + + documented in this encounter Visit Diagnoses Not on filedocumented in this encounter"
--- OUTSIDE RECORDS SUMMARY | ~2019-07-27 | XMS | Encounter Summary ---
Demographics + + + | Address | [address] | | | [place] [address] | + + + | Home Phone | | + + + | Preferred Language | Unknown | + + + | Marital Status | Single | + + + | Mandaen Affiliation | Unknown | + + + | Race | Unknown | + + + | Ethnic Group | Unknown | + + + Author + + + | Author | [facility] | | | and [place] | + + + | Organization | [facility] | | | and [place] | + + + | Address | Unknown | + + + | Phone | Unavailable | + + + Support + + + + + | Name | Relationship | Address | Phone | + + + + + | India Tilley | ECON | [address] | | | | | [place], [place] | | | | | [address] | | + + + + + | Yina La | ECON | Unknown | | + + + + + | Yina Peterson | ECON | Unknown | | + + + + + | Leatha Casillas | ECON | Unknown | | + + + + + Care Team Providers + +------+ + | Care Shoe Planner Name | Role | Phone | + +------+ + | Renato villarreal DIPESH | PCP | | + +------+ + Reason for Visit + + + | Reason | Comments | + + + | Surgery Appointment | | + + + Encounter Details +--------+ + + + + | Date | Type | Department | Care Team | Description | +--------+ + + + + | 07/26/ | Telephone | [facility] | Francisca Robert, | Surgery Appointment | | 2019 | | VASCULAR SURGERY | RN | | | | | [address] | | | | | | [place] | | | | | | [address] | | | | | | [phone] | | | +--------+ + + + + Social History + +-------+ +--------+------+ | Tobacco Use | Types | Packs/Day | Years | Date | | | | | Used | | + +-------+ +--------+------+ | Current Every Day | | | | | | Smoker | | | | | + [...] do you have serious | No | 03/31/2019 | | difficulty hearing? | | | + + + + | Are you blind or do you have serious | No | 03/31/2019 | | difficulty seeing, even when wearing | | | | glasses? | | | + + + + | Do you have serious difficulty walking or | No | 03/31/2019 | | climbing stairs? (5 years old or older) | | | + + + + | Do you have difficulty dressing or bathing? | No | 03/31/2019 | | (5 years old or older) | | | + + + + | Because of a physical, mental, or emotional | No | 03/31/2019 | | condition, do you have difficulty [...] physical, mental, or emotional | No | 03/31/2019 | | condition, do you have serious difficulty | | | | concentrating, remembering, or making | | | | decisions? (5 years old or older) | | | + + + + documented as of this encounter Plan of Treatment Not on filedocumented as of this encounter Visit Diagnoses Not on filedocumented in this encounter"
--- OUTSIDE RECORDS SUMMARY | ~2019-07-27 | XMS | Encounter Summary ---
Demographics + + + | Address | [address] | | | [place] [address] | + + + | Home Phone | | + + + | Preferred Language | Unknown | + + + | Marital Status | Single | + + + | Yarsani Affiliation | Unknown | + + + | Race | Unknown | + + + | Ethnic Group | Unknown | + + + Author + + + | Author | [facility] | | | and [place] | + + + | Organization | [facility] | | | and [place] | + + + | Address | Unknown | + + + | Phone | Unavailable | + + + Support + + + + + | Name | Relationship | Address | Phone | + + + + + | India Tilley | ECON | [address] | | | | | [place], [place] | | | | | [address] | | + + + + + | Yina La | ECON | Unknown | | + + + + + | Yina Peterson | ECON | Unknown | | + + + + + | Leatha Casillas | ECON | Unknown | | + + + + + Care Team Providers + +------+ + | Care Marketing Rep Name | Role | Phone | + +------+ + PCP | Unavailable | + +------+ + Reason for Visit +---------+ + | Reason | Comments | +---------+ + | Post Op | Creation of RIGHT AV Fistula, RIGHT transposition of basilic | | | vein. | +---------+ + Evaluate & Treat (Routine) +--------+ + + + + + | Status | Reason | Specialty | Diagnoses / | Referred By | Referred To | | | | | Procedures | Contact | Contact | +--------+ + + + + + | Closed | Specialty | Surgery / | Diagnoses | Stroemel, | Field, | | | Services | General | Chronic | Gopi Roman, | Santos Donato, | | | Required | Surgery | kidney | DO [address] | [address] | | | | | disease, | [place], [place] | [address] | | | | | stage V | [address] | [place], | | | | | ([facility]) | [facility], [place] | [place] [address] | | | | | | [address] | Phone: | | | | | | Phone: | [phone] | | | | | | [phone] | Fax: | | | | | | Fax: | [phone] | | | | | | [phone] | | +--------+ + + + + + Encounter Details +--------+---------+ + + + | Date | Type | Department | Care Team | Description | +--------+---------+ + + + | 01/10/ | Office | [facility] | Santos Stephenson | Chronic kidney | | 2018 | Visit | SURGERY [address] | MD Glenn FACS [address] | disease, stage V | | | | [place], [place] | [address] | (HCC) (Primary Dx); | | | | [address] | [place] [address] | Post-operative state | | | | [phone] | [phone] | | | | | | | | +--------+---------+ + + + Social History + +-------+ [...] + + + | Blood Pressure | - | - | | + + + + + | Pulse | 85 | 01/10/2018 1:22 PM | | | | | PDT | | + + + + + | Temperature | 36.8 C (98.3 F) | 01/10/2018 1:22 PM | | | | | PDT | | + + + + + | Respiratory Rate | - | - | | + + + + + | Oxygen Saturation | 99% | 01/10/2018 1:22 PM | | | | | PDT | | + + + + + | Inhaled Oxygen | - | - | | | Concentration | | | | + + + + + | Weight | 77.6 kg (171 lb 1.2 | 01/10/2018 1:22 PM | | | | oz) | PDT | | + + + + + | Height | 172.7 cm (5' 8") | 01/10/2018 1:22 PM | | | | | PDT | | + + + + + | Body Mass Index | 26.01 | 01/10/2018 1:22 PM | | | | | PDT | | + + + + + documented in this encounter Progress Notes Santos Stephenson MD, FACS - 01/10/2018 1:30 PM PDTFormatting of this note might be diff erent from the original. Patient Identification: Estefani Tilley 1945 Is a 72 y.o. female , a patien t of Francisca Womack PA-C. Patient is here alone. S: Date of surgery: 01/04/2018. Title of surgery: Creation of RIGHT AV Fistula, RIGHT herring sposition of basilic vein. Physician notes: Patient arrives 6 day(s) s/p Creation of RIGHT AV Fistula, RIGHT transposition of basilic v ein. She reports being in more pain following surgery then she originally anticipated. She states she has had a lot of drainage into the bulb. Reports slight pain in her RIGHT hand. Patient is currently being dialyzed. Just had dialysis this AM. PAST MEDICAL HISTORY Past Medical History: Diagnosis Date Anemia Arthritis Back pain Breast cancer (HCC) Cancer (HCC) Diabetes (HCC) Heart disease Hemodialysis patient (HCC) mon-wed-fri History of blood clots Hypercholesteremia Hypertension Hypothyroidism Renal failure Seasonal allergies Past Surgical History: Procedure Laterality Date APPENDECTOMY EYE SURGERY 2008 HYSTERECTOMY MASTECTOMY 2006 left ear NOSE SURGERY 2008 SHUNT PLACEMENT/INSERTION N/A 11/08/2017 Procedure: Tunneled Hemodialysis Catheter Placement; Surgeon: Nora Leo MD; Location : [facility] MAIN OR VEIN SURGERY Right 01/04/2018 Procedure: Right Transposed Basilic Vein to Proximal Radial Artery; Surgeon: Santos Stephenson MD, FACS; Location: [facility] MAIN OR Allergies Allergen Reactions Lisinopril Pt states she does not remember what was the reaction she had to lisinopril. I asked her if it gave her a cough and she said "I cant remember, maybe it made me sick to my stomach". Naproxen Medications: Outpatient Encounter Prescriptions as of 01/10/2018 Medication Sig Dispense Refill acetaminophen-codeine (TYLENOL #3) 300-30 mg per tablet Take 2 tablets by mouth Twice daily as needed for Pain. Alcohol Swabs 70 % PADS by Does not apply route. amLODIPine (NORVASC) 10 MG tablet Take 1 tablet by mouth Daily. 50 tablet 0 amoxicillin-clavulanate (AUGMENTIN) 500-125 mg per tablet Take 1 tablet by mouth Daily. artificial tears (AKWA TEARS) ophthalmic ointment Place into both eyes every hour as n eeded for Dry Eyes. aspirin 325 mg tablet Take 325 mg by mouth Daily. atorvaSTATin (LIPITOR) 20 mg tablet Take 20 mg by mouth nightly. b complex-vitamin c-folic acid (NEPHRO-MANUEL) tablet Take 1 tablet by mouth Daily. calcium-vitamin D (CALCIUM 600-D) 600 mg-400 units per tablet Take 1 tablet by mouth 2 times daily. cholecalciferol (VITAMIN D-3) 2000 units TABS Take 2,000 Units by mouth Daily. epoetin karthik (EPOGEN, PROCRIT) 10,000 units/mL injection Inject 1 mL under the skin Thr ee times a week. 0 furosemide (LASIX) 80 mg tablet Take 1 tablet by mouth Daily. 50 tablet 0 gabapentin (NEURONTIN) 100 mg capsule Take 200 mg by mouth 3 times daily. Take Two (2) capsules by mouth every morning and take Two (2) capsules every evening and take one (1)caps ule at noon if needed for Neuropathy - per Med list received from Dr. Womack office 8. Glucose Blood (TRUE METRIX BLOOD GLUCOSE TEST ) by In Vitro route. HYDROcodone-acetaminophen (NORCO) 5-325 mg per tablet Take 1-2 tablets by mouth every 4 hours as needed for Pain. 30 tablet 0 insulin glargine (LANTUS SOLOSTAR) 100 units/mL injection (pen) Inject 20 Units under t he skin nightly. Insulin Pen Needle 31G X 5 MM MISC by Does not apply route. labetalol (NORMODYNE) 200 mg tablet Take 1 tablet by mouth 2 times daily. 100 tablet 0 Lancets MISC by Does not apply route. levothyroxine (SYNTHROID, LEVOTHROID) 75 MCG tablet Take 75 mcg by mouth every morning (before breakfast). loratadine (CLARITIN) 10 mg tablet Take 1 tablet by mouth Daily as needed for Allergies . 30 tablet losartan (COZAAR) 25 mg tablet Take 1 tablet by mouth Daily. (Patient taking differentl y: Take 100 mg by mouth Daily.) 50 tablet 0 olopatadine (PATANOL) 0.1% ophthalmic solution Place 1 drop into both eyes 2 times maite y. pantoprazole (PROTONIX) 40 mg tablet Take 40 mg by mouth every morning (before breakfas t). UNABLE TO FIND Med Name: Cadoexomer Iodine 0.9 % gel. Apply a small amount to affected area as directed during dressing changes. No facility-administered encounter medications on file as of 01/10/2018. Family History Problem Relation Age of Onset Diabetes Other grandfather Diabetes Other grandmother Cancer Sister Social History: She reports that she has never smoked. She has never used smokeless tobacco. She reports th at she does not drink alcohol or use drugs. PHYSICAL EXAM Vitals: 01/10/18 1322 Pulse: 85 Temp: 36.8 C (98.3 F) TempSrc: Temporal SpO2: 99% Weight: 77.6 kg (171 lb 1.2 oz) Height: 1.727 m (5' 8") Body mass index is 26.01 kg/m. General Appearance: Alert, cooperative, no distress, appears stated age Skin: Warm and dry Upper Extremities: RIGHT arm has good thrill in the graft. Incisions clean and dry. JANUARY drain removed Palpable Pulses: RIGHT LEFT Brachial Radial absent Ulnar absent Neurologic: Alert and oriented x3,Moving all 4 extremities. , Gait normal Assessment 1. Chronic kidney disease, stage V (HCC) 2. Post-operative state Plan 1) S/P Creation of RIGHT AV Fistula, RIGHT transposition of basilic vein. Patient recovering well post surgery. Return to clinic in one month. Declined giving patient further pain meds. Santos Stephenson MD, FACS Vascular and General Surgery I Karena Valle am acting as a scribe on behalf of, and in the presence of Santos kulkarni MD, FACS. I have reviewed and edited this note. Karena Valle CMA 01/10/18 I, Santos Stephenson MD, FACS, personally performed the services described in this docume ntation, as scribed by Karena Valle CMA in my presence, and it is both accurate and complet e. Karena Valle CMA 01/10/2018 14:04 documented glenn mcgraw this encounter Plan of Treatment Not on filedocumented as of this encounter Visit Diagnoses + + | Diagnosis | + + | Chronic kidney disease, stage V ([facility]) - Primary Chronic kidney disease, Stage V | + + | Post-operative state Other postprocedural status | + + documented in this encounter
--- OUTSIDE RECORDS SUMMARY | ~2019-07-27 | XMS | Encounter Summary ---
Demographics + + + | Address | [address] | | | [place] [address] | + + + | Home Phone | | + + + | Preferred Language | Unknown | + + + | Marital Status | Single | + + + | Synagogue Affiliation | Unknown | + + + | Race | Unknown | + + + | Ethnic Group | Unknown | + + + Author + + + | Author | [facility] | | | and [place] | + + + | Organization | [facility] | | | and [place] | + + + | Address | Unknown | + + + | Phone | Unavailable | + + + Support + + + + + | Name | Relationship | Address | Phone | + + + + + | India Tilley | ECON | [address] | | | | | [place], [place] | | | | | [address] | | + + + + + | Yina La | ECON | Unknown | | + + + + + | Yina Peterson | ECON | Unknown | | + + + + + | Leatha Casillas | ECON | Unknown | | + + + + + Care Team Providers + +------+ + | Care Staff Development Coordinator Rn Name | Role | Phone | + [...] | CONVERSION [address] | MD [address] [facility] | | | | | [address] | [place], [place] | | | | | [place], [place] | [address] | | | | | [address] | | | | | | [phone] | | | +--------+ + + + [...]
--- OUTSIDE RECORDS SUMMARY | ~2019-07-27 | XMS | Encounter Summary ---
Demographics + + + | Address | [address] | | | [place] [address] | + + + | Home Phone | | + + + | Preferred Language | Unknown | + + + | Marital Status | Single | + + + | Latter-Day Affiliation | Unknown | + + + | Race | Unknown | + + + | Ethnic Group | Unknown | + + + Author + + + | Author | [facility] | | | and [place] | + + + | Organization | [facility] | | | and [place] | + + + | Address | Unknown | + + + | Phone | Unavailable | + + + Support + + + + + | Name | Relationship | Address | Phone | + + + + + | India Tilley | ECON | [address] | | | | | [place], [place] | | | | | [address] | | + + + + + | Yina La | ECON | Unknown | | + + + + + | Yina Peterson | ECON | Unknown | | + + + + + | Leatha Casillas | ECON | Unknown | | + + + + + Care Team Providers + +------+ + | Care Forest Officer Name | Role | Phone | + +------+ + PCP | Unavailable | + +------+ + Reason for Referral Diagnostic/Screening (Emergency) + +--------+ + + + + | Status | Reason | Specialty | Diagnoses / | Referred By | Referred To | | | | | Procedures | Contact | Contact | + +--------+ + + + + | Authorized | | Radiology | Diagnoses | Echaiz | [facility] | | | | | Infection | Nick Miller | [address] | | | | | of | Paulie | NAKITA RASHID | | | | | 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 [address] | [address] | | | | | al disc | [address] | [place], [place] | | | | | (pyogenic), | [place], [place] | [address] | | | | | thoracic | [address] | Phone: | | | | | region ([facility]) | Phone: | [phone] | | | | | | [phone] | Fax: | | | | | 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: | [phone] | | | | | s of | [phone] | | | | | | thoracic [...] | | | Contrast | | | + +--------+ + + + + Reason for Visit [...] Authorized | | Infectious | Diagnoses | Cecilia | Cesar | | | | Diseases | | Mat Bolaños, | Infectious | | | | | Osteomyeliti | [address] | Disease [address] | | | | | s of | KYRIE HERNANDEZ | [place] [address] | | | | | vertebra, | [place], | [place] | | | | | site | [place] [address] | [address] | | | | | unspecified | Phone: | Phone: | | | | | ([facility]) | [phone] | [phone] | | | | | Procedures | Fax: | Fax: | | | | | NE OFFICE | [phone] | [phone] | | | | | OUTPATIENT | | | | | | | NEW 60 | | | | | | | MINUTES | | | + +--------+ + + + + Encounter Details +--------+---------+ + + + | Date | Type | Department | Care Team | Description | +--------+---------+ + + + | 05/18/ | Office | [facility] | Fabiana Miller, | 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 | 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 | Nick Apodaca MD | intervertebral disc | | | | [address] | [address] | (pyogenic), thoracic | | | | [place], [place] | [place] [address] | region ([facility]) | | | | [address] | [phone] | (Primary Dx); | | | | [phone] | | Osteomyelitis of | | | | | | thoracic vertebra | | | | | | ([facility]); | | | | | | Osteoarthritis, [...] dialysis | | | | | | ([facility]) | +--------+---------+ + + + Social History [...] 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 Complete MRI as soon as possible. Complete lab testing today.Electronically signed by Nick Miller MD at 01/2019 2:01 PM PDT documented in this encounter Progress Notes Nick Pritchard MD - 05/18/2019 1:20 PM PDT [facility]: Infectious Diseases Initial Outpatient Consult Note [...] with diabetic nephropathy, with dialysis via a [facility] upper extremity AV fistula on Wednesdays and Fridays, seen in consultation for p ossible discitis and osteomyelitis. History is obtained from: Patient, limited medical records from outside referring provider. The patient presents to clinic referred by Dr. Mat Brooks from orthopedic surgery in [facility]. 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 The patient states that she was on [...] W/CANNULATED SCREWS; Surgeon: Scott Koroma MD; Location: [facility] MAIN OR HYSTERECTOMY MASTECTOMY 2006 left ear NOSE SURGERY 2009 OTHER SURGICAL HISTORY Right 03/28/2019 Procedure: TUNNEL PICC LINE PLACEMENT-6fr 22cm BARD Power Line; Surgeon: Jose Jiménez MD; Location: [facility] REMOVAL TUNNELED CATHETER Right 04/04/[address] Stephenson SHUNT PLACEMENT/INSERTION N/A 11/08/2017 Procedure: Tunneled Hemodialysis Catheter Placement; Surgeon: Nora Leo MD; Location : [facility] MAIN OR SHUNT PLACEMENT/INSERTION Right 02/04/2018 Procedure: INSERTION SHUNT HEMODIALYSIS W/ PERMACATH; Surgeon: Heather Navarro MD; L ocation: [facility] MAIN OR VEIN SURGERY Right 01/04/2018 Procedure: Right Transposed Basilic Vein to Proximal Radial Artery; Surgeon: Santos Stephenson MD, FACS; Location: [facility] MAIN OR Social History Socioeconomic History Marital [...] INFLUENZA QUADR W/PRES (PED/ADOL/ADULT) MULTIDOSE 06/27/2014 INFLUENZA, [id number], UNSPECIFIED 08/28/2009 INFLUENZA, UNSPECIFIED FORMULATION 07/03/1992, 06/18/1993, [...] REFERENCE | | | | performed at [facility];[address] | | LAB | | | | [facility] | | [facility] | | | | [address];[place] [address] | | LABORATORY | | + + + + + + + + | Specimen | + + | Blood | + + + + + + + | Performing | Address | City/State/Zipcode | Phone Number | | Organization | | | | + + + + + | REFERENCE LAB | [address] | [place] [address] | [phone] | | [facility] | Blvd[address] | | | | LABORATORY | | | | + + + + + | REFERENCE LAB | [address] | [place] [address] | | | [facility] | Bl[address] | [...] REFERENCE | | | | performed at [facility];[address] | | LAB | | | | [place] | | [facility] | | | | [address];[place] [address] | | LABORATORY | | + + + + + + + + | Specimen | + + | Blood | + + + + + + + | Performing | Address | City/State/Zipcode | Phone Number | | Organization | | | | + + + + + | REFERENCE LAB | [address] [place] [address] | [place] [address] | [phone] | | [facility] | Blvd. | | | | LABORATORY | | | | + + + + + | REFERENCE LAB | [address] [place] [address] | [place] [address] | | | [facility] | Blvd. | [...] | | | | | performed at [facility];[address] | | | | | | [facility] | | | | | | Blvd;[place] [address] | | | | | | | | | | + + + + + + + + | Specimen | + + | Blood | + + + + + + + | Performing | Address | City/State/Zipcode | Phone Number | | Organization | | | | + + + + + | REFERENCE LAB | [address] | [place] [address] | [phone] | | [facility] | Blvd[address] | | | | LABORATORY | | | | + + + + + | REFERENCE LAB | [address] [place] [address] | [place] [address] | | | [facility] | Blvd. | [...] + + + + + + | RBC | 2.97 (L) | 3.70 - 5.10 | REFERENCE | | | | | M/uL | LAB | | [...] | | | Absolute | performed at [facility];[address] | K/uL | LAB | | | | [place] | | [facility] | | | | [address];[place] [address] | | LABORATORY | | + + + + + + + + | Specimen | + + | Blood | + + + + + + + | Performing | Address | City/State/Zipcode | Phone Number | | Organization | | | | + + + + + | REFERENCE LAB | [address] | [place] [address] | [phone] | | [facility] | Blvd[address] | | | | LABORATORY | | | | + + + + + | REFERENCE LAB | [address] | [place] [address] | | | [facility] | Blvd[address] | [...] | | REFERENCE | | | | [facility];[address] | | LAB | | | | Blvd;[place], [place] | | [facility] | | | | [id number]: Testing | | LABORATORY | | | | performed at [facility], [address] | | | | [address], | | | | | | [place] [address] | | | | + + + [...] + + | REFERENCE LAB | [address] | [place] [address] | [phone] | | [facility] | Blvd. | | | | LABORATORY | | | | + + + + + | REFERENCE LAB | [address] [facility] | [place] [address] | | | [facility] | Bl[address]. | [...]
--- OUTSIDE RECORDS SUMMARY | ~2019-07-27 | XMS | Encounter Summary ---
Demographics + + + | Address | [address] | | | [place] [address] | + + + | Home Phone [...] Author | [facility] | | | and [place]it[place] | + + + | Organization | [facility] | | | and [place] | + + + | Address | Unknown | + + + | Phone | Unavailable | + + + Support + + + + + | Name | Relationship | Address | Phone | + + + + + | India Tilley | ECON | [address] | | | | | [place], [place] | | | | | [address] | | + + + + + | Yina La | ECON | Unknown | | + + + + + | Yina Peterson | ECON | Unknown | | + + + + + | Leatha Casillas | ECON | Unknown | | + + + + + Care Team Providers + +------+ + | Care Supervisor Advertising Dispatch Clerks Name | Role | Phone | + +------+ + PCP | Unavailable | + +------+ + Reason for Visit Evaluate & Treat (Routine) + +--------+ + + + + | Status | Reason | Specialty | Diagnoses / | Referred By | Referred To | | | | | Procedures | Contact | Contact | + +--------+ + + + + | Authorized | | Nephrology | Diagnoses | Bour[place], | Stroemel, | | | | | End stage | Francisca H, | Gopi Roman DO | | | | | renal | PA-C [address] | [address] | | | | | disease | [address] | [place], [place] | | | | | ([facility]) | [place] | [address] [facility] | | | | | Procedures | [address] | [facility] [place] | | | | | ID ESRD | [facility] | [address] Phone: | | | | | RELATED [address] | [place] | [phone] | | | | | MONTHLY | [address] | Fax: | | | | | 20&/> YR OLD | Phone: | [phone] | | | | | 4/> VISITS | [phone] | | | | | | | Fax: | | | | | | | [phone] | | + +--------+ + + + + Encounter Details +--------+ + + + + | Date | Type | Department | Care Team | Description | +--------+ + + + + | 03/06/ | Off-Site | [facility] | Gopi Muñoz | End stage renal | | 2019 | Visit | NEPHROLOGY [address] | M, DO [address] | disease (HCC) | | | | [address] | [place] | (Primary Dx) | | | | [place] | [place], [place] | | | | | [address] | [address] | | | | | [phone] | | | +--------+ + + + [...] this encounter Progress Gopi Pugh DO - 03/06/2019 11:00 AM PDT[NO SHOW]. documented in thi s encounter Plan of Treatment Not on filedocumented as of this encounter Visit Diagnoses + + | Diagnosis | + + | End stage renal disease (HCC) - Primary End stage renal disease | + + documented in this encounter"
--- OUTSIDE RECORDS SUMMARY | ~2019-07-27 | XMS | Encounter Summary ---
Demographics + + + | Address | [address] | | | [place] [address] | + + + | Home Phone | | + + + | Preferred Language | Unknown | + + + | Marital Status | Single | + + + | Buddhist Affiliation | Unknown | + + + | Race | Unknown | + + + | Ethnic Group | Unknown | + + + Author + + + | Author | [facility] | | | and [place] | + + + | Organization | [facility] | | | and [place] | + + + | Address | Unknown | + + + | Phone | Unavailable | + + + Support + + + + + | Name | Relationship | Address | Phone | + + + + + | India Tilley | ECON | [address] | | | | | [place], [place] | | | | | [address] | | + + + + + | Yina La | ECON | Unknown | | + + + + + | Yina Peterson | ECON | Unknown | | + + + + + | Leatha Casillas | ECON | Unknown | | + + + + + Care Team Providers + +------+ + | Care Reliability Engineer Name | Role | Phone | + +------+ + PCP | Unavailable | + +------+ + Reason for Visit + + + | Reason | Comments | + + + | Nephrology | | | Appointment | | + + + Encounter Details +--------+ + + + + | Date | Type | Department | Care Team | Description | +--------+ + + + + | 09/22/ | Telephone | [facility] [place] | Darlin Moseley W, | Nephrology | | 2018 | | NEPHROLOGY [address] | [address] | Appointment | | | | [address] [facility] [address] | [address] [place] | | | | | [place] | [place] [address] | | | | | [address] | [phone] | | | | | [phone] | | | +--------+ + + + [...]
--- OUTSIDE RECORDS SUMMARY | ~2019-07-27 | XMS | Encounter Summary ---
Demographics + + + | Address | [address] | | | [place] [address] | + + + | Home Phone | | + + + | Preferred Language | Unknown | + + + | Marital Status | Single | + + + | Cheondoism Affiliation | Unknown | + + + | Race | Unknown | + + + | Ethnic Group | Unknown | + + + Author + + + | Author | [facility] | | | and [place] | + + + | Organization | [facility] | | | and [place] | + + + | Address | Unknown | + + + | Phone | Unavailable | + + + Support + + + + + | Name | Relationship | Address | Phone | + + + + + | India Tilley | ECON | [address] | | | | | [place], [place] | | | | | [address] | | + + + + + | Yina La | ECON | Unknown | | + + + + + | Yina Peterson | ECON | Unknown | | + + + + + | Leatha Casillas | ECON | Unknown | | + + + + + Care Team Providers + +------+ + | Care Torch Shearer Name | Role | Phone | + [...] | Surgery | kidney | DO [address] | , [address] | | | | | disease, | [place], [place] | [address] | | | | | stage V | [address] | [place], | | | | | ([facility]) | [place], [place] | [place] [address] | | | | | | [address] | Phone: | | | | | | Phone: | [phone] | | | | | | [phone] | Fax: | | | | | | Fax: | [phone] | | | | | | [phone] | | +--------+ + + + + + Encounter Details +--------+ + + + + | Date | Type | Department | Care Team | Description | +--------+ + + + + | 10/06/ | Orders Only | [facility] | Gopi Muñoz | Chronic kidney | | 2018 | | NEPHROLOGY [address] | M, DO [address] | disease, stage V | | | | [address] | [place] [address] | ([facility]) (Primary Dx) | | | | [place] | [place] | | | | | [address] | [address] | | | | | [phone] | | | +--------+ + + + [...] as of this encounter Plan of Treatment + + +--------+ + + | Name | Type | Priori | Associated Diagnoses | Order Schedule | | | | ty | | | + + +--------+ + + | * [facility] | Outpatient | Routin | Chronic kidney | Ordered: 10/06/2017 | | Surgery - AMB | Referral | e | disease, stage V | | | Referral | | | ([facility]) | | + + +--------+ + + documented as of this encounter Results VAS Upper Extremity Vein Mapping Bilat (10/22/2017 3:59 PM PST) + + | Specimen | + + | | + + + + + | Narrative | Performed At | + + + | EXAM:VAS UPPER EXTREMITY VEIN MAPPING BILATERAL CLINICAL | [facility] | | HISTORY: Needs AV fistula COMPARISON: None. | | | FINDINGS/IMPRESSION - Please refer to the scanned in image 4 for | | | opacification in sizes. No visible thrombi. Dictated and | | | Signed by: Rolan Orellana MD Electronically signed: 10/22/2017 7:51 | | | PM | | + + + + + | Procedure Note | + + | Julian, Rad Results In - 10/22/2017 7:54 PM PST EXAM:VAS UPPER EXTREMITY VEIN MAPPING | | BILATERALCLINICAL HISTORY: Needs AV fistulaCOMPARISON: None.FINDINGS/IMPRESSION - Please | | refer to the scanned in image 4 for opacification insizes.No visible thrombi.Dictated | | and Signed by: Rolan Orellana MD Electronically signed: 10/22/2017 7:51 PM | |COMPARISON: None. | | | |FINDINGS/IMPRESSION - Please refer to the scanned in image 4 for opacification in | |sizes. | | | |No visible thrombi. | | | | | |Dictated and Signed by: Rolan Orellana MD | | Electronically signed: 10/22/2017 7:51 PM | + + + +---------+ + [...]
--- OUTSIDE RECORDS SUMMARY | ~2019-07-27 | XMS | Encounter Summary ---
Demographics + + + | Address | [address] | | | [place] [address] | + + + | Home Phone | | + + + | Preferred Language | Unknown | + + + | Marital Status | Single | + + + | Restoration Affiliation | Unknown | + + + | Race | Unknown | + + + | Ethnic Group | Unknown | + + + Author + + + | Author | [facility] | | | and [place] | + + + | Organization | [facility] | | | and [place] | + + + | Address | Unknown | + + + | Phone | Unavailable | + + + Support + + + + + | Name | Relationship | Address | Phone | + + + + + | India Tilley | ECON | [address] | | | | | [place], [place] | | | | | [address] | | + + + + + | Yina La | ECON | Unknown | | + + + + + | Yina Peterson | ECON | Unknown | | + + + + + | Leatha Casillas | ECON | Unknown | | + + + + + Care Team Providers + +------+ + | Care Wire Steward Name | Role | Phone | + +------+ + PCP | Unavailable | + +------+ + Encounter Details +--------+ + + + + | Date | Type | Department | Care Team | Description | +--------+ + + + + | 11/08/ | Imaging | [facility] | Provider, | | | 2018 | Exam | [facility] | [address] | | | | | IMAGING | [address] | | | | | [phone] | [place] [address] | | +--------+ + + + + [...] +--------+ + + + | XR CHEST PA OR AP | Routin | 08/26/2006 | | Results for this | | | e | 6:35 PM | | procedure are in the | | | | PST | | results section. | + +--------+ + + + documented in this encounter Results XR Chest PA or AP (08/26/2006 6:35 PM PST) + + | Specimen | + + | | + + + + + | Narrative | Performed At | + + + | External films for comparison only - no result from [place]. | [facility] | + + + + +---------+ + + | Performing | Address | City/State/Zipcode | Phone Number | | Organization | | | | + +---------+ + + | [facility] | | | | + +---------+ + + documented in this encounter Visit Diagnoses Not on filedocumented in this encounter"
--- OUTSIDE RECORDS SUMMARY | ~2019-07-27 | XMS | Encounter Summary ---
Demographics + + + | Address | [address] | | | [place] [address] | + + + | Home Phone | | + + + | Preferred Language | Unknown | + + + | Marital Status | Single | + + + | Bahai Affiliation | Unknown | + + + | Race | Unknown | + + + | Ethnic Group | Unknown | + + + Author + + + | Author | [facility] | | | and [place] | + + + | Organization | [facility] | | | and [place] | + + + | Address | Unknown | + + + | Phone | Unavailable | + + + Support + + + + + | Name | Relationship | Address | Phone | + + + + + | India Tilley | ECON | [address] | | | | | [place], [place] | | | | | [address] | | + + + + + | Yina La | ECON | Unknown | | + + + + + | Yina Peterson | ECON | Unknown | | + + + + + | Leatha Casillas | ECON | Unknown | | + + + + + Care Team Providers + +------+ + | Care Lumber Carrier Operator Name | Role | Phone | + +------+ + PCP | Unavailable | + +------+ + Encounter Details +--------+ + + + + | Date | Type | Department | Care Team | Description | +--------+ + + + + | 12/27/ | Documentati | [facility] | Gopi Muñoz | | | 2019 | on | NEPHROLOGY [address] | M, DO [address] | | | | | [address] | [place] | | | | | [place], [place] | [address] | | | | | [address] | [address] | | | | | [phone] | | | +--------+ + + + [...] of this encounter Progress Tatiana Gamble - 12/27/2018 9:13 AM [facility] order, sign ed and dated 12/23/[address] Muñoz. Sent to scan. documented in this encounter Plan of Treatment Not on filedocumented as of this encounter Visit Diagnoses Not on filedocumented in this encounter"
--- OUTSIDE RECORDS SUMMARY | ~2019-07-27 | XMS | Encounter Summary ---
Demographics + + + | Address | [address] | | | [place] [address] | + + + | Home Phone | | + + + | Preferred Language | Unknown | + + + | Marital Status | Single | + + + | Hinduism Affiliation | Unknown | + + + | Race | Unknown | + + + | Ethnic Group | Unknown | + + + Author + + + | Author | [facility] | | | and [place] | + + + | Organization | [facility] | | | and [place] | + + + | Address | Unknown | + + + | Phone | Unavailable | + + + Support + + + + + | Name | Relationship | Address | Phone | + + + + + | India Tilley | ECON | [phone] | | | | | [place], [place] | | | | | [address] | | + + + + + | Yina La | ECON | Unknown | | + + + + + | Yina Peterson | ECON | Unknown | | + + + + + | Leatha Casillas | ECON | Unknown | | + + + + + Care Team Providers + +------+ + | Care Die Engraver Name | Role | Phone | + [...] NEPHROLOGY [address] | M, DO [address] | Problem | | | | [address] | [place] | | | | | [place] | [place] | | | | | [address] | [address] | | | | | [phone] | | | +--------+ + + + [...]
--- OUTSIDE RECORDS SUMMARY | ~2019-07-27 | XMS | Encounter Summary ---
Demographics + + + | Address | [address] | | | [place] [address] | + + + | Home Phone | | + + + | Preferred Language | Unknown | + + + | Marital Status | Single | + + + | Adventism Affiliation | Unknown | + + + | Race | Unknown | + + + | Ethnic Group | Unknown | + + + Author + + + | Author | [facility] | | | and [place] | + + + | Organization | [facility] | | | and [place] | + + + | Address | Unknown | + + + | Phone | Unavailable | + + + Support + + + + + | Name | Relationship | Address | Phone | + + + + + | India Tilley | ECON | [address] | | | | | [place], [place] | | | | | [address] | | + + + + + | Yina La | ECON | Unknown | | + + + + + | Yina Peterson | ECON | Unknown | | + + + + + | Leatha Casillas | ECON | Unknown | | + + + + + Care Team Providers + +------+ + | Care Aspnet Developer Name | Role | Phone | + +------+ + PCP | Unavailable | + +------+ + Encounter Details +--------+ + + + + | Date | Type | Department | Care Team | Description | +--------+ + + + + | 10/04/ | Abstract | [facility] | Darlin Moseley W, | | | 2017 | | NEPHROLOGY [address] | [address] | | | | | [address] | [address] [facility] | | | | | [place] | [place] [address] | | | | | [address] | [phone] | | | | | [phone] | | | +--------+ + + + [...] | EXTERNAL LAB: BUN | Routin | 10/01/2017 | | Results for this | | | e | | | procedure are in the | | | | | | results section. | + +--------+ + + + | EXTERNAL LAB: | Routin | 10/01/2017 | | Results for this | | GLUCOSE | e | | | procedure are in the | | | | | | results section. | + +--------+ + + + | EXTERNAL LAB: | Routin | 10/01/2017 | | Results for this | | ALBUMIN | e | | | procedure are in the | | | | | | results section. | + +--------+ + + + | EXTERNAL LAB: | Routin | 10/01/2017 | | Results for this | | PHOSPHORUS | e | | | procedure are in the | | | | | | results section. | + +--------+ + + + | EXTERNAL LAB: | Routin | 10/01/2017 | | Results for this | | CALCIUM | e | | | procedure are in the | | | | | | results section. | + +--------+ + + + | EXTERNAL LAB: CARBON | Routin | 10/01/2017 | | Results for this | | DIOXIDE | e | | | procedure are in the | | | | | | results section. | + +--------+ + + + | EXTERNAL LAB: | Routin | 10/01/2017 | | Results for this | | CHLORIDE | e | | | procedure are in the | | | | | | results section. | + +--------+ + + + | EXTERNAL LAB: | Routin | 10/01/2017 | | Results for this | | POTASSIUM | e | | | procedure are in the | | | | | | results section. | + +--------+ + + + | EXTERNAL LAB: SODIUM | Routin | 10/01/2017 | | Results for this | | | e | | | procedure are in the | | | | | | results section. | + +--------+ + + + | EXTERNAL LAB: FELIPE | Routin | 10/01/2017 | | Results for this | | INTACT | e | | | procedure are in the | | | | | | results section. | + +--------+ + + + | EXTERNAL LAB: | Routin | 10/01/2017 | | Results for this | | PROTEIN/CREATININE | e | | | procedure are in the | | RATIO | | | | results section. | + +--------+ + + + | EXTERNAL LAB: MINISTERIO | Routin | 10/01/2017 | | Results for this | | | e | | | procedure are in the | | | | | | results section. | + +--------+ + + + | EXTERNAL LAB: EGFR | Routin | 10/01/2017 | | Results for this | | | e | | | procedure are in the | | | | | | results section. | + +--------+ + + + | EXTERNAL LAB: | Routin | 10/01/2017 | | Results for this | | CREATININE | e | | | procedure are in the | | | | | | results section. | + +--------+ + + + documented in this encounter Results External Lab: CBC (10/01/2017) + + + + + + | Component | Value | Ref Range | Performed | Pathologist | | | | | At | Signature | + + + + + + | WBC, | 6.17 | 4 - 11 | EXTERNAL | | | External | | | LAB | | + + + + + + | HGB, | 10.5 (A) | 12 - 16 | EXTERNAL | | | External | | | LAB | | + + + + + + | HCT, | 30.4 (A) | 35 - 45 | EXTERNAL | | | External | | | LAB | | + + + + + + | PLT, | 210 | 140 - 440 | EXTERNAL | | | External | | | LAB | | + + + + + + | RBC, | 3.34 (A) | 4 - 6 | EXTERNAL | | | External | | | LAB | | + + + + + + | MCV, | 91 | 80 - 100 | EXTERNAL | | | External | | | LAB | | + + + + + + | RDW, | 14.1 | 10.5 - 15 | EXTERNAL | | | External | | | LAB | | + + + + + + + +---------+ + + | Performing | Address | City/State/Zipcode | Phone Number | | Organization | | | | + +---------+ + + | EXTERNAL LAB | | | | + +---------+ + + External Lab: Protein/Creatinine Ratio (10/01/2017) + + + + + + | Component | Value | Ref Range | Performed | Pathologist | | | | | At | Signature | + + + + + + | Protein/Cre | 16.9 (A) | 0.2 | | | | atinine | | | | | | Ratio, | | | | | | External | | | | | + + + + + + + + | Specimen | + + | | + + External Lab: PTH, Intact (10/01/2017) + +---------+ + + + | Component | Value | Ref Range | Performed | Pathologist | | | | | At | Signature | + +---------+ + + + | PTH Intact, | 116 (A) | 12 - 88 | | | | External | | | | | + +---------+ + + + + + | Specimen | + + | | + + External Lab: BUN (10/01/2017) + +--------+ + + + | Component | Value | Ref Range | Performed | Pathologist | | | | | At | Signature | + +--------+ + + + | BUN, | 29 (A) | 6 - 23 | EXTERNAL | | | External | | | LAB | | + +--------+ + + + + +---------+ + + | Performing | Address | City/State/Zipcode | Phone Number | | Organization | | | | + +---------+ + + | EXTERNAL LAB | | | | + +---------+ + + External Lab: Glucose (10/01/2017) + +---------+ + + + | Component | Value | Ref Range | Performed | Pathologist | | | | | At | Signature | + +---------+ + + + | Glucose, | 159 (A) | 70 - 100 | EXTERNAL | | | External | | | LAB | | + +---------+ + + + + +---------+ + + | Performing | Address | City/State/Zipcode | Phone Number | | Organization | | | | + +---------+ + + | EXTERNAL LAB | | | | + +---------+ + + External Lab: Albumin (10/01/2017) + +---------+ + + + | Component [...] + +---------+ + + External Lab: Phosphorus (10/01/2017) + +-------+ + + + | Component | Value | Ref Range | Performed | Pathologist | | | | | At | Signature | + +-------+ + + + | Phosphorus, | 3.2 | 2.5 - 4.4 | EXTERNAL | | | External | | | LAB | | + +-------+ + + + + +---------+ + + | Performing | Address | City/State/Zipcode | Phone Number | | Organization | | | | + +---------+ + + | EXTERNAL LAB | | | | + +---------+ + + External Lab: Calcium (10/01/2017) + +-------+ + + + | Component | Value | Ref Range | Performed | Pathologist | | | | | At | Signature | + +-------+ + + + | Calcium, | 8.4 | 8.4 - 10.2 | EXTERNAL | | | External | | | LAB | | + +-------+ + + + + +---------+ + + | Performing | Address | City/State/Zipcode | Phone Number | | Organization | | | | + +---------+ + + | EXTERNAL LAB | | | | + +---------+ + + External Lab: Carbon Dioxide (10/01/2017) + +-------+ + + + | Component | Value | Ref Range | Performed | Pathologist | | | | | At | Signature | + +-------+ + + + | Carbon | 25 | 23 - 32 | EXTERNAL | [...] + +---------+ + + External Lab: Chloride (10/01/2017) + +-------+ + + + | Component | Value | Ref Range | Performed | Pathologist | | | | | At | Signature | + +-------+ + + + | Chloride, | 106 | 100 - 110 | EXTERNAL | | | External | | | LAB | | + +-------+ + + + + +---------+ + + | Performing | Address | City/State/Zipcode | Phone Number | | Organization | | | | + +---------+ + + | EXTERNAL LAB | | | | + +---------+ + + External Lab: Potassium (10/01/2017) + +-------+ + + + | Component | Value | Ref Range | Performed | Pathologist | | | | | At | Signature | + +-------+ + + + | Potassium, | 5.0 | 3.5 - 5.1 | EXTERNAL | | | External | | | LAB | | + +-------+ + + + + +---------+ + + | Performing | Address | City/State/Zipcode | Phone Number | | Organization | | | | + +---------+ + + | EXTERNAL LAB | | | | + +---------+ + + External Lab: Sodium (10/01/2017) + +-------+ + + + | Component | Value | Ref Range | Performed | Pathologist | | | | | At | Signature | + +-------+ + + + | Sodium, | 142 | 135 - 145 | EXTERNAL | | | External | | | LAB | | + +-------+ + + + + +---------+ + + | Performing | Address | City/State/Zipcode | Phone Number | | Organization | | | | + +---------+ + + | EXTERNAL LAB | | | | + +---------+ + + External Lab: eGFR (10/01/2017) + +--------+ + + + | Component | Value | Ref Range | Performed | Pathologist | | | | | At | Signature | + +--------+ + + + | eGFR, | 15 (A) | 60 | EXTERNAL | | [...] + +---------+ + + External Lab: Creatinine (10/01/2017) + + + + + + | Component | Value | Ref Range | Performed | Pathologist | | | | | At | Signature | + + + + + + | Creatinine, | 2.97 (A) | 0.6 - 1.3 | EXTERNAL [...]
--- OUTSIDE RECORDS SUMMARY | ~2019-07-27 | XMS | Encounter Summary ---
Demographics + + + | Address | [address] | | | [place] [address] | + + + | Home Phone | | + + + | Preferred Language | Unknown | + + + | Marital Status | Single | + + + | Sikh Affiliation | Unknown | + + + | Race | Unknown | + + + | Ethnic Group | Unknown | + + + Author + + + | Author | [facility] | | | and [place] | + + + | Organization | [facility] | | | and [place] | + + + | Address | Unknown | + + + | Phone | Unavailable | + + + Support + + + + + | Name | Relationship | Address | Phone | + + + + + | India Tilley | ECON | [address] | | | | | [place], [place] | | | | | [address] | | + + + + + | Yina La | ECON | Unknown | | + + + + + | Yina Peterson | ECON | Unknown | | + + + + + | Leatha Casillas | ECON | Unknown | | + + + + + Care Team Providers + +------+ + | Care Resolution Manager Name | Role | Phone | + +------+ + PCP | Unavailable | + +------+ + Reason for Visit + + + | Reason | Comments | + + + | Hospital Follow-up | | + + + Encounter Details +--------+ + + + + | Date | Type | Department | Care Team | Description | +--------+ + + + + | 04/04/ | Telephone | [facility] | Z[facility] | Hospital Follow-up | | 2019 | | Internal Medicine | Gregg RN | | | | | Hospitalists [address] | | | | | | [address] | | | | | | [address] | | | | | | [phone] | | | +--------+ + + + [...]
--- OUTSIDE RECORDS SUMMARY | ~2019-07-27 | XMS | Encounter Summary ---
Demographics + + + | Address | [address] | | | [place] [address] | + + + | Home Phone | | + + + | Preferred Language | Unknown | + + + | Marital Status | Single | + + + | Lutheran Affiliation | Unknown | + + + | Race | Unknown | + + + | Ethnic Group | Unknown | + + + Author + + + | Author | [facility] | | | and [place] | + + + | Organization | [facility] | | | and [place] | + + + | Address | Unknown | + + + | Phone | Unavailable | + + + Support + + + + + | Name | Relationship | Address | Phone | + + + + + | India Tilley | ECON | [address] | | | | | [place], [place] | | | | | [address] | | + + + + + | Yina La | ECON | Unknown | | + + + + + | Yina Peterson | ECON | Unknown | | + + + + + | Leatha Casillas | ECON | Unknown | | + + + + + Care Team Providers + +------+ + | Care Runner Man Name | Role | Phone | [...] | al disc | [address] | [place], [place] | | | | | (pyogenic), | [place], [place] | [address] | | | | | thoracic | [address] | Phone: | | | | | region ([facility]) | Phone: | [phone] | | | | | | [phone] | Fax: | | | | | 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: | [phone] | | | | | s of | [phone] | | | | | | thoracic [...] | | | vertebra, | [place], | [place] | | | | | site | [place] [address] | [address] | | | | | unspecified | Phone: | Phone: | | | | | ([facility]) | [phone] | [phone] | | | | | Procedures | Fax: | Fax: | | | | | [place] OFFICE | [phone] | [phone] | | | | | OUTPATIENT | | | | | | | NEW 60 | | | | | | | MINUTES | | | + +--------+ + + + + Encounter Details +--------+---------+ + + + | Date | Type | Department | Care Team | Description | +--------+---------+ + + + | 05/18/ | Office | [facility] | Fabiana Miller, | 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 Complete MRI as soon as possible. Complete lab testing today.Electronically signed by Nick Miller MD at 01/2019 2:01 PM PDT documented in this encounter Progress Notes Nick Pritchard MD - 05/18/2019 1:20 PM PDT [facility] Service: Infectious Diseases Initial Outpatient Consult [...] with diabetic nephropathy, with dialysis via a [facility] upper extremity AV fistula on Wednesdays and Fridays, seen in consultation for p ossible discitis and osteomyelitis. History is obtained from: Patient, limited medical records from outside referring provider. The patient presents to clinic referred by Dr. Mat Brooks from orthopedic surgery in [facility]. 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 Medical record review indicates that the patient's was admitted to [facility] in [place] from March 24, 2019 through March 31, [...] approximately a week a go by her stopper grinder. The patient states that she was on [...] W/CANNULATED SCREWS; Surgeon: Scott Koroma MD; Location: [facility] MAIN OR HYSTERECTOMY MASTECTOMY 2006 left ear NOSE SURGERY 2009 OTHER SURGICAL HISTORY Right 03/28/2019 Procedure: TUNNEL PICC LINE PLACEMENT-6fr 22cm BARD Power Line; Surgeon: Jose Jiménez MD; Location: [facility] INTERVENTIONAL RADIOLOGY REMOVAL TUNNELED CATHETER Right 04/04/[address] Stephenson SHUNT PLACEMENT/INSERTION N/A 11/08/2017 Procedure: Tunneled Hemodialysis Catheter Placement; Surgeon: Nora Leo MD; Location : [facility] MAIN OR SHUNT PLACEMENT/INSERTION Right 02/04/2018 Procedure: INSERTION SHUNT HEMODIALYSIS W/ PERMACATH; Surgeon: Heather Navarro MD; L ocation: [facility] MAIN OR VEIN SURGERY Right 01/04/2018 Procedure: Right Transposed Basilic Vein to Proximal Radial Artery; Surgeon: Santos Stephenson MD, FACS; Location: [facility] MAIN OR Social History Socioeconomic History [...] INFLUENZA QUADR W/PRES (PED/ADOL/ADULT) MULTIDOSE 06/27/2014 INFLUENZA, [id number], UNSPECIFIED 08/28/2009 INFLUENZA, UNSPECIFIED FORMULATION 07/03/1992, 06/18/1993, [...] REFERENCE | | | | performed at [facility];[address] | | LAB | | | | [facility] ([place], [place]) | | [facility] | | | | [address];[place] [address] | | LABORATORY | | + + + + + + + + | Specimen | + + | Blood | + + + + + + + | Performing | Address | City/State/Zipcode | Phone Number | | Organization | | | | + + + + + | REFERENCE LAB | [address] | [place] [address] | [phone] | | [facility] | Bl[address] | | | | LABORATORY | | | | + + + + + | REFERENCE LAB | [address] | [place] [address] | | | [facility] | Bl[address] | [...] REFERENCE | | | | performed at [facility];[address] | | LAB | | | | [place] | | [facility] | | | | [address];[place] [address] | | LABORATORY | | + + + + + + + + | Specimen | + + | Blood | + + + + + + + | Performing | Address | City/State/Zipcode | Phone Number | | Organization | | | | + + + + + | REFERENCE LAB | [address] [place] [address] | [place] [address] | [phone] | | [facility] | Blvd[address] | | | | LABORATORY | | | | + + + + + | REFERENCE LAB | [address] [place] [address] | [place] [address] | | | [facility] | Bl[address] | [...] | | | | | performed at [facility];[address] | | | | | | [facility] ([place], [place]) | | | | | | Blvd;[place] [address] | | | | | | | | | | + + + + + + + + | Specimen | + + | Blood | + + + + + + + | Performing | Address | City/State/Zipcode | Phone Number | | Organization | | | | + + + + + | REFERENCE LAB | [address] | [place] [address] | [phone] | | [facility] | Bl[address] | | | | LABORATORY | | | | + + + + + | REFERENCE LAB | [address] [place] [address] | [place] [address] | | | [facility] | Blvd[address] | [...] | | | Absolute | performed at [facility];[address] | [address] | LAB | | | | [place] | | [facility] | | | | [address];[place] [address] | | LABORATORY | | + + + + + + + + | Specimen | + + | Blood | + + + + + + + | Performing | Address | City/State/Zipcode | Phone Number | | Organization | | | | + + + + + | REFERENCE LAB | [address] | [place] [address] | [phone] | | [facility] | Blvd[address] | | | | LABORATORY | | | | + + + + + | REFERENCE LAB | [address] | [place] [address] | | | [facility] | Bl[address] | [...] | | LAB | | | | Blvd;[place], [place] | | [facility] | | | | [id number]: Testing | | LABORATORY | | | | performed at [facility], [address] | | | | [address], | | | | | | [place] [address] | | | | + + + [...] + + | REFERENCE LAB | [address] | [place] [address] | [phone] | | [facility] | Blvd[address] | | | | LABORATORY | | | | + + + + + | REFERENCE LAB | [address] | [place] [address] | | | [facility] | Bl[address] | [...]
--- OUTSIDE RECORDS SUMMARY | ~2019-07-27 | XMS | Encounter Summary ---
Demographics + + + | Address | [address] | | | [place] [address] | + + + | Home Phone [...] | Author | [facility] | | | and [place] | + + + | Organization | [facility] | | | and [place] | + + + | Address | Unknown | + + + | Phone | Unavailable | + + + Support + + + + + | Name | Relationship | Address | Phone | + + + + + | India Tilley | ECON | [address] | | | | | [place], [place] | | | | | [address] | | + + + + + | Yina La | ECON | Unknown | | + + + + + | Yina Peterson | ECON | Unknown | | + + + + + | Leatha Casillas | ECON | Unknown | | + + + + + Care Team Providers + +------+ + | Care Home Appliance Installer Name | Role | Phone | + +------+ + | DangeloRenato CUPOLA OPERATOR INSULATION | PCP | | + +------+ + Reason for Visit + + + | Reason | Comments | + + + | Appointment | schedule | + + + Encounter Details +--------+ + + + + | Date | Type | Department | Care Team | Description | +--------+ + + + + | 06/27/ | Telephone | [facility] | Ta Melendez, | Appointment | | 2018 | | INTERVENTIONAL | MD Chidi Ibanez | (schedule) | | | | RADIOLOGY [address] | [address] | | | | | [address] | [place] [address] | | | | | [place], [place] | [phone] | | | | | [address] | | | | | | [phone] | | | +--------+ + + + [...]
--- OUTSIDE RECORDS SUMMARY | ~2019-07-27 | XMS | Encounter Summary ---
Demographics + + + | Address | [address] | | | [place] [address] | + + + | Home Phone [...] Author | [facility] | | | and [place] | + + + | Organization | [facility] | | | and [place] | + + + | Address | Unknown | + + + | Phone | Unavailable | + + + Support + + + + + | Name | Relationship | Address | Phone | + + + + + | India Tilley | ECON | [address] | | | | | [place], [place] | | | | | [address] | | + + + + + | Yina La | ECON | Unknown | | + + + + + | Yina Peterson | ECON | Unknown | | + + + + + | Leatha Casillas | ECON | Unknown | | + + + + + Care Team Providers + +------+ + | Care Adjuster And Inspector Name | Role | Phone | [...] | | | | | | | ([facility]) | | | | | | | Complication | | | | | | | s, dialysis, | | | | | | | catheter, | | | | | | | mechanical, | | | | | | | initial | | | | | | | encounter | | | | | | | ([facility]) | | | | | | | [...] + + | 02/04/ | Anesthesia | [facility] | Lyndsay Mckeon, | | | 2018 | Event | [facility] | DO [address] | | | | | [address] | [place] | | | | | [place] | [address] | | | | | [address] | | | | | | [phone] | | | +--------+ + + + + Anesthesia Record + + + + + | Procedure Name | Responsible | Anesthesia Start | Anesthesia Stop Time | | | Anesthesiologist | Time | | + + + + + | INSERTION SHUNT | Lyndsay Mckeon DO | 02/04/182203 | 02/04/18 2314 | | HEMODIALYSIS W/ [...] +----+---+ + + | | 2 | Kerrick | | | | 2 | 43-degrees [...] 1920; Left; Wrist; | 02/04/181920 by | 02/05/18 0130 by | | eral | glyd-fbm-flotew catheter system; | Keren Hernandez RN | Francia Melo RN | | IV | 20 gauge; Hematology, Chemistry, | | | | | Coagulation; 0; no longer | | | | | indicated; 02/05/18; 0130 | | | +--------+ + + + [...] | | | | Removal: removed by LIP/PA; | | | | | Removal Date: 02/04/18; Removal | | | | | Time: 2309 | | | +--------+ + + + | Read | 02/04/18; 2227; Right; chest; | 02/04/182227 by | 12/06/18 1342 by | | [...] LYNDSAY MCKEON | | GABRIELElectronically Signed by: DO Eleazar Dillon | | date/time: 02/04/2018 22:17 | |Route, reference point: center of mouth | |Tube secured with: adhesive tape | |Trauma: none | |Tube placement verification: bilateral chest rise and carbon dioxide detection | |Performing provider: LYNDSAY MCKEON | | | | | |Electronically Signed by: DO Eleazar Dillon date/time : 02/04/2018 22:17 | | | [...] | propofol (DIPRIVAN) injection | Given | 02/05/20 | 140 mg | | | | [...]
--- OUTSIDE RECORDS SUMMARY | ~2019-07-27 | XMS | Encounter Summary ---
Demographics + + + | Address | [address] | | | [place] [address] | + + + | Home Phone | | + + + | Preferred Language | Unknown | + + + | Marital Status | Single | + + + | Yazidism Affiliation | Unknown | + + + | Race | Unknown | + + + | Ethnic Group | Unknown | + + + Author + + + | Author | [facility] | | | and [place] | + + + | Organization | [facility] | | | and [place] | + + + | Address | Unknown | + + + | Phone | Unavailable | + + + Support + + + + + | Name | Relationship | Address | Phone | + + + + + | India Tilley | ECON | [address] | | | | | [place], [place] | | | | | [address] | | + + + + + | Yina La | ECON | Unknown | | + + + + + | Yina Peterson | ECON | Unknown | | + + + + + | Leatha Casillas | ECON | Unknown | | + + + + + Care Team Providers + +------+ + | Care Warranty Coordinator Name | Role | Phone | + +------+ + PCP | Unavailable | + +------+ + Encounter Details +--------+ + + + + | Date | Type | Department | Care Team | Description | +--------+ + + + + | 02/01/ | Orders Only | [facility] | Scott Koroma E, | Closed fracture of | | 2018 | | ORTHOPEDIC SURGERY | MD Nash SEPULVEDA | neck of right femur, | | | | [address] | [place] | initial encounter | | | | [place] | [address] | ([facility]) (Primary Dx); | | | | [address] | | Right hip pain; H/O | | | | [phone] | | major orthopedic | | | | | | surgery | +--------+ + + + + Social [...] Not on filedocumented as of this encounter Results XR Hip Right 2-3 Views (02/03/2019 10:39 AM PDT) + + | Specimen | + + | | + + + + + | Narrative | Performed At | + + + | XR HIP RIGHT 2-3 VIEWS 02/03/2019 10:39 AM HISTORY: S/P | [facility] | | Cannulated Screw Fixation Right Femoral Neck Fracture DOS: 12/04/18. | | | COMPARISON: Multiple priors. FINDINGS: Again visualized are 3 | | | nails through the right femoral neck for fixation of a subcapital | | | fracture showing mild overlap. Alignment is stable. There is mild | | | sclerosis consistent with healing. Mild degenerative changes are | | | present of the right hip. Bone mineralization is decreased. There is | | | mild to moderate atherosclerosis. IMPRESSION - Stable ORIF of | | | right femoral neck with increased healing. Dictated and Signed by: | | | Salvatore Nunez MD Electronically signed: 02/03/2019 3:34 PM | | + + + + + | Procedure Note | + + | Julian, Rad Results In - 02/03/2019 3:37 PM PDT XR HIP RIGHT 2-3 VIEWS 02/03/2019 10:39 | | AMHISTORY: S/P Cannulated Screw Fixation Right Femoral Neck Fracture | | DOS:12/04/18.COMPARISON: Multiple priors.FINDINGS:Again visualized are 3 nails through | | the right femoral neck for fixation of asubcapital fracture showing mild overlap. | | Alignment is stable. There is mildsclerosis consistent with healing. Mild degenerative | | changes are present of theright hip. Bone mineralization is decreased. There is mild to | | moderateatherosclerosis.IMPRESSION -Stable ORIF of right femoral neck with increased | | healing.Dictated and Signed by: Salvatore Nunez MD Electronically signed: 02/03/2019 3:34 | | PM | |subcapital fracture showing mild overlap. Alignment is stable. There is mild | |sclerosis consistent with healing. Mild degenerative changes are present of the | |right hip. Bone mineralization is decreased. There is mild to moderate | |atherosclerosis. | | | |IMPRESSION - | |Stable ORIF of right femoral neck with increased healing. | | | |Dictated and Signed by: Salvatore Nunez MD | | Electronically signed: 02/03/2019 3:34 PM | + + + +---------+ + [...] pelvic region and thigh | + + | H/O major orthopedic surgery | + + documented in this encounter"
--- OUTSIDE RECORDS SUMMARY | ~2019-07-27 | XMS | Encounter Summary ---
Demographics + + + | Address | [address] | | | [place] [address] | + + + | Home Phone | | + + + | Preferred Language | Unknown | + + + | Marital Status | Single | + + + | Yazidism Affiliation | Unknown | + + + | Race | Unknown | + + + | Ethnic Group | Unknown | + + + Author + + + | Author | [facility] | | | and [place]aljitana | + + + | Organization | [facility] | | | and [place] | + + + | Address | Unknown | + + + | Phone | Unavailable | + + + Support + + + + + | Name | Relationship | Address | Phone | + + + + + | India Tilley | ECON | [address] | | | | | [place], [place] | | | | | [address] | | + + + + + | Yina La | ECON | Unknown | | + + + + + | Yina Peterson | ECON | Unknown | | + + + + + | Leatha Casillas | ECON | Unknown | | + + + + + Care Team Providers + +------+ + | Care Web Services Architect Name | Role | Phone | + [...] Hemodialysis | | | | [address] | [place] [address] | Catheter Placement | | | | [place], [place] | [phone] | | | | | [address] | | | | | | [phone] | | | +--------+---------+ + + + [...] might be differ ent from the original. [place], [place] HOSPITALIST DISCHARGE SUMMARY Pt. Name/Age/: Estefani [...] insulin glargine 100 units/mL injection (vial) aka: [facility] COURSE: Please refer to the H&P for full details and the most recent rounding rounding (progress) n ote. In short this is a 72-year-old woman, history of hypertension, diabetes mellitus type 2 on insulin, chronic kidney disease of stage V, CAD, who presented to [facility] after be ing found down in [...] evaluation. At time of arrival to send [facility], patient was feeling much better and was [...] n/a DISPOSITION AND DISCHARGE INSTRUCTIONS: Follow-up Information [facility] On 11/10/2017. Why: 1:00pm Contact information: [address] [place] [id number] Follow up In 3 days. Francisca Womack PA-C In 3 days. Specialty: Internal Medicine Contact information: [address] [place] [address] Hemodialysis In 1 day. Contact information: Appointment at 1:30 PM Condition: Patient being discharged with condition improved and stable Diet: renal, carbohydrate controlled Greater than 30 minutes were spent on discharge and coordination of post-hospital care. Electronically signed by: Mayelin Vega MD, 11/09/2017 11:06 [facility] Portions of this chart may have been created with [employer] voice recognition software. Occasi onal wrong-word or sound-alike substitutions may have occurred due to the inherent mckeon itations of voice recognition software. Please read the chart carefully and recognize, using context, where these substitutions have occurred documented in this encounter Discharge Instructions AttachmentsThe following attachments cannot be sent through Care Everywhere.Balancing Calci um and Phosphorus, Kidney Disease (Irish)Hemodialysis (Irish)documented in this encounte r Medications at Time [...] Muñoz, DO - 11/09/2017 6:18 PM PST [facility] [address] [place] [address] PROGRESS NOTE Pt. Name/Age/: Estefani Tilley 72 y.o. 1945 Med. Record Number: [id number] Date of admission: 11/01/2017 NEPHROLOGY HPI - [...] 3. Complete 10 days total of AB's. [facility] Nora Headley MD - 11/09/2017 4:24 [...] and she agreed. Nikki was raised in [place] and in [place], [place]. She has two brothers and two sisters, and h ad 4 children of her own. Her oldest child, daughter, two months ago. Nikki is gri eving her loss and teared up while talking about her. Her other children live in [facility] and one son has been in [place] for 23 years. She hasn't seen him since he was arr ested and is hopeful she will get to see him next year, as he is schedule to be released at that time. 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 She has at least 4 ye ars post high school education and studied journalism. In the years prior to alf, she worked at [employer]. Nikki's mother had chronic kidney disease and [...] and picking up and going to the [facility] [place]. She must plan it out, and that feels antithetical to her nature. Ginger escamilla was present and attentive while she discussed her grief around losing her family member s and her lifestyle, offered supportive credit support counselor. Chayo Ramirez RN - 11/09/2017 10:00 AM Cam RN arrived at [facility]'s room around 0800 to begin dialysis. [...] note might be different from the [facility] [place] [facility] PROGRESS NOTE Patient: Estefani Tilley : 1945: Age: 72 y.o. MedRec: [id number] Admission date: 11/01/2017 Hospital day # : [...] capsule 100 mg 100 mg Oral BID Oelgario Peng MD 100 mg at 11/07/172051 [NOV [...] mg/m L 0.25 mg [facility] Sawyer Nora Leo MD [NOV Hold] labetalol (NORMODYNE) [...] nephrology recs -Nephro rec permacath needed for long term care pharmacist dialysis -continue ferrlecit and Epogen 3. CAD- no signs of ACS, EKG RBBB, trop 0.03 at OSH -Continue aspirin, lipitor 4. Hypothyroidism -TSH WNL -Continue levothyroxine 5. HTN uncontrolled -Continue Labetalol and furosemide -Continue losartan 25 mg daily PPX: HSQ FEN: renal Mayelin Vega 11/08/2017 11:50 [facility] Nora Headley MD - 11/08/2017 10:06 [...] might be different f rom the original. [facility] [place] HOSPITALIST PROGRESS NOTE Patient: Estefani Tilley : 1945: Age: 72 y.o. MedRec: [id number] Admission date: 11/01/2017 Hospital day # : [...] Procedure Component Value Units Date/Time Culture, Blood [[id number]] (Normal) Collected: 11/04/172121 Order Status: Completed Lab Status: Preliminary result Updated: 11/05/17 09 Specimen: Blood from Line Culture No growth: Monitored continually by instrument for 5 days Culture, Blood [[id number]] (Normal) Collected: 11/04/172102 Order Status: Completed Lab [...] Wednesday to determine if permacath needed for long term care pharmacist dialysis -continue ferrlecit and Epogen 3. CAD- no signs of ACS, EKG RBBB, trop 0.03 at OSH -Continue aspirin, lipitor 4. Hypothyroidism -TSH WNL -Continue levothyroxine 5. HTN uncontrolled -Continue Labetalol and furosemide -restart losartan 25 mg daily PPX: HSQ FEN: renal Mayelin Vega 11/07/2017 12:57 [facility] Cordell Palmer MD - 11/07/2017 9:43 AM PSTFormatting of this note might be different from the maynor rollins [facility] NEPHROLOGY progress note Patient: Estefani Tilley : [...] Darlin Moseley MD Electronically signed: 11/07/2017 9:43 [facility] NEPHROLOGY Olegario Keen M D - 11/06/2017 2:15 PM PST [facility] [place] HOSPITALIST PROGRESS NOTE Patient: Estefani Tilley : 1945: Age: 72 y.o. MedRec: [id number] Admission date: 11/01/2017 Hospital day # : [...] Procedure Component Value Units Date/Time Culture, Blood [[id number]] (Normal) Collected: 11/04/172121 Order Status: Completed Lab Status: Preliminary result Updated: 11/05/17930 Specimen: Blood from Line Culture No growth: Monitored continually by instrument for 5 days Culture, Blood [[id number]] (Normal) Collected: 11/04/172102 Order Status: Completed Lab Status: Preliminary result Updated: 11/05/17 09 Specimen: Blood from Line Culture No growth: Monitored continually by instrument for 5 days Culture, Blood [[id number]] (Normal) Collected: 11/03/17 1506 Order Status: Completed [...] to determ ine if permacath needed for penitentiary dialysis CAD no signs of ACS, EKG [...] Oral BID PRN Olegario Peng 11/06/2017 14:15 [facility] Darlin Palmer M D - 11/06/2017 9:10 AM PST [facility] NEPHROLOGY progress note Patient: Estefani Tilley : [...] Darlin Moseley MD Electronically signed: 11/06/2017 9:11 [facility] NEPHROLOGY Olegario Keen M D - 11/05/2017 2:08 PM PST [facility] JOE DIAZ [place] HOSPITALIST PROGRESS NOTE Patient: Estefani Tilley : 1945: Age: 72 y.o. MedRec: [id number] Admission date: 11/01/2017 Hospital day # : [...] Procedure Component Value Units Date/Time Culture, Blood [[id number]] (Normal) Collected: 11/04/172 Order Status: Completed Lab Status: Preliminary result Updated: 11/05/17 0931 Specimen: Blood from Line Culture No growth: Monitored continually by instrument for 5 days Culture, Blood [[id number]] (Normal) Collected: 11/04/17 2103 Order Status: Completed Lab Status: Preliminary result Updated: 11/05/17 0911 Specimen: Blood from Line Culture No growth: Monitored continually by instrument for 5 days Culture, Blood [[id number]] (Normal) Collected: 11/03/17 1506 Order Status: Completed Lab Status: Preliminary result Updated: 11/04/17 0311 Specimen: Blood from Peripheral Blood Culture No growth: Monitored continually by instrument for 5 days Culture, Blood [[id number]] (Abnormal) Collected: 11/03/17 0812 Order Status: Completed Lab Status: Preliminary result Updated: 11/05/17 0751 Specimen: Blood from Arm, Left Culture Positive Blood Culture (AA) Staphylococcus coagulase negative Comment: Identification and susceptibility to follow. Probable contaminant Gram Stain Result Gram positive cocci in clusters Comment: 2 of 4 bottles positive Culture, Respiratory, Lower, Smear [[id number]] Collected: 11/03/17 0727 Order Status: Completed Lab [...] Oral BID PRN Olegario Peng 11/05/2017 14:08 [facility] Darlin Palmer M D - 11/05/2017 1:53 PM PST [facility] NEPHROLOGY progress note Patient: Estefani Tilley : [...] Darlin Moseley MD Electronically signed: 11/05/2017 13:53 [facility] NEPHROLOGY tGopi rick , DO - 11/04/2017 6:53 PM PST [facility] [address] [place], [place] [id number] PROGRESS NOTE Pt. Name/Age/: Estefani Tilley 72 y.o. 1945 Med. Record Number: [id number] Date of admission: 11/01/2017 NEPHROLOGY HPI - [...] to high Inpt case load here at [facility]. 2. probable pyelonephritis?--Day #3 Ceftriaxone, Day #2 [...] for coverage of both organisms, Q 48H. [facility] Queenie Hall RN - 11/04/2017 10:23 AM PSTPatient transferred from ICU into room 307. Oriented to room an d call light. Bed alarm set. Call light in place. Remains on 2L via nasal canula. Makes need s known. Amanda Keen MD - 11/04/2017 7:21 AM PSTFormatting of this note might be different from the origin al. [facility] [place] HOSPITALIST PROGRESS NOTE Patient: Estefani Tilley : 1945: Age: 72 y.o. MedRec: [id number] Admission date: 11/01/2017 Hospital day # : [...] Procedure Component Value Units Date/Time Culture, Blood [[id number]] (Normal) Collected: 11/03/17 1506 Order Status: Completed Lab Status: Preliminary result Updated: 11/04/17 0311 Specimen: Blood from Peripheral Blood Culture No growth: Monitored continually by instrument for 5 days Culture, Blood [[id number]] (Normal) Collected: 11/03/17 0812 Order Status: Completed Lab Status: Preliminary result Updated: 11/03/17 2041 Specimen: Blood from Arm, Left Culture No growth: Monitored continually by instrument for 5 days Culture, Respiratory, Lower, Smear [[id number]] Collected: 11/03/17 0727 Order Status: Completed Lab Status: Preliminary result Updated: 11/03/17 1028 Specimen: Respiratory from Sputum, expectorated Gram Stain Result 3+ White Blood Cells 2+ Epithelial cells 2+ Gram positive cocci 2+ Gram positive bacilli 1+ Hyphael elements Influenza A and B RNA, NAAT [[id number]] (Normal) Collected: 11/02/17 1050 Order Status: Completed Lab Status: Final result Updated: 11/02/17 1125 Specimen: Respiratory from Nares Influenza A PCR Negative Influenza B PCR Negative Culture, Urine [[id number]] Collected: 11/02/17 0740 Order Status: Completed Lab Status: Preliminary result Updated: 11/03/17 1013 Specimen: Urine Culture >100,000 CFU/ml Lactose Fermenting Gram Negative Bacilli Comment: Identification and susceptibility to follow. Culture, Blood [[id number]] (Normal) Collected: 11/02/17 0024 Order Status: Completed Lab Status: Preliminary result Updated: 11/02/17 1241 Specimen: Blood from Peripheral Blood Culture No growth: Monitored continually by instrument for 5 days Culture, Blood [[id number]] (Abnormal) Collected: 11/02/17 0019 Order Status: Completed [...] 15:14 by Edison Short. Narrative: Culture, MRSA [[id number]] Collected: 11/01/172145 Order Status: Completed Lab Status: [...] in chains -Repeat UA (+), urine culture >907165 GNB lactose fermenting -Continue ceftriaxone started 11/02, [...] Q30 Min PRN Olegario Peng 11/04/2017 7:21 [facility] Nick Aguillon, RN - 0 11/04/2017 1:06 AM PSTDialysis treatment started and Arterial pressures running in the -400s , trouble shooting ineffective, arterial and venous lines switched, pressures now -50s. Shama sarabia is running appropriately at this moment, will continue monitoring. Nick Guallpa Gopi Mckenna DO - 11/03/2017 11:20 AM PST [facility] [address] [place] [address] PROGRESS NOTE Pt. Name/Age/: Estefani Tilley 72 y.o. 1945 Med. Record Number: [id number] Date of admission: 11/01/2017 NEPHROLOGY HPI - [...] anemia. 4. Encourage ambulation to minimize atelectasis. [facility] Olegario Keen MD - 11/03/2017 7:07 AM PST [facility] [place] HOSPITALIST PROGRESS NOTE Patient: Estefani Tilley : 1945: Age: 72 y.o. MedRec: [id number] Admission date: 11/01/2017 Hospital day # : [...] PH UA 6.0 5.0 - 8.0 Specific [place] 1.010 1.001 - 1.030 PROTEIN UA 100 [...] Date/Time Influenza A and B RNA, NAAT [[id number]] (Normal) Collected: 11/02/17 1050 Order Status: Completed Lab Status: Final result Updated: 11/02/17 1125 Specimen: Respiratory from Nares Influenza A PCR Negative Influenza B PCR Negative Culture, Urine [[id number]] Collected: 11/02/17 0740 Order Status: Sent Lab Status: In process Updated: 11/02/17 0758 Specimen: Urine Culture, Blood [[id number]] (Normal) Collected: 11/02/17 0024 Order Status: Completed Lab Status: Preliminary result Updated: 11/02/17 1241 Specimen: Blood from Peripheral Blood Culture No growth: Monitored continually by instrument for 5 days Culture, Blood [[id number]] (Abnormal) Collected: 11/02/17 0019 Order Status: Completed Lab Status: Preliminary result Updated: 11/02/17 1515 Specimen: Blood from Peripheral Blood Culture Positive Blood Culture (AA) Gram Stain Result Gram positive cocci in chains Comment: One of four Blood Culture bottles POSITIVE. Critical Result called to and read b ack by Kristen Irving on 11/02/2017 at 15:14 by Edison Short. Narrative: Culture, MRSA [[id number]] Collected: 11/01/17 2146 Order Status: Sent Lab [...] Oral BID PRN Olegario Peng 11/03/2017 7:08 [facility] oltangela, Ta Restrepo, [facility] - 11/02/2017 3:43 PM PST PHARMACY SERVICES: [...] strength, and directions X Pharmacy list names: [facility] CLINICAL QUALITY ANALYST (Prescription Monitoring Program) X 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 [place] HOSPITALIST PROGRESS NOTE Patient: Estefani Tilley : 1945: Age: 72 y.o. MedRec: [id number] Admission date: 11/01/2017 Hospital day # : [...] Nightly Rupal Laguna MD 20 mg at 4067 bisacodyl (DULCOLAX) suppository 10 mg 10 mg [...] Procedure Component Value Units Date/Time Culture, Blood [[id number]] Collected: 11/02/1723 Order Status: Sent Lab Status: In process Updated: 11/02/1732 Specimen: Blood from Peripheral Blood Culture, Blood [[id number]] Collected: 11/02/1718 Order Status: Sent Lab Status: In process Updated: 11/02/1732 Specimen: Blood from Peripheral Blood Culture, MRSA [[id number]] Collected: 11/01/172145 Order Status: Sent Lab Status: [...] 0.9% Intravenous Continuous Olegario Peng 11/02/2017 7:38 [facility] documented in this e ncounter Plan of [...] | | PERMACATH | | PST | ([facility]) | | + +--------+ + [...] [address] | [place] | [phone] | | [facility] | | [address] | | | - LABORATORY | | [...] [address] | [place] | [phone] | | [facility] | | [address] | | | - LABORATORY | | [...] [address] | [place] | [phone] | | [facility] | | [address] | | | - LABORATORY | | [...] 2.99 (H) | 0.60 - 1.30 | [facility] | | | | | mg/dL | [facility] | | | | | | MEDICAL | | | | | | CENTER - | | | | | | LABORATORY | | + + + + + + | eGFR if not | 15 (L)Comment: | >=60 | [facility] | | | | GLOMERULAR FILTRATION | mL/min/1.73m2 | [facility] | | | BENINESE | RATE,ESTIMATED | | MEDICAL | | | | mL/min/1.68v4Wapp than | | CENTER - | | [...] [address] | [place] | [phone] | | [facility] | | [address] | | | - LABORATORY | | [...] + | [facility] | [address] | [place] | [phone] | | [facility] | | [address] | | | - LABORATORY | | [...] [address] | [place] | [phone] | | [facility] | | [address] | | | - LABORATORY | | [...] [address] | [place] | [phone] | | [facility] | | [address] | | | - LABORATORY | | [...] + | [facility] | [address] | [place] | [phone] | | [facility] | | [address] | | | - LABORATORY | | [...] [address] | [place] | [phone] | | [facility] | | [address] | | | - LABORATORY | | [...] + | [facility] | [address] | [place] | [phone] | | [facility] | | [address] | | | - LABORATORY | | [...] mL/min/1.73m2 | [facility] | | | BENINESE | RATE,ESTIMATED | | MEDICAL | | | | mL/min/1.50m2Qnzj than | | CENTER - | | [...] ST. | [address] | [place] | [phone] | | [facility] | | [address] | | | - LABORATORY | | [...] [address] | [place] | [phone] | | [facility] | | [address] | | | - LABORATORY | | [...] | [facility] | [address] | [place] | [phone] | | [facility] | | [address] | | | - LABORATORY | | [...] [address] | [place] | [phone] | | [facility] | | [address] | | | - LABORATORY | | [...] | + + + + + | [facility] | [address] | [place] | [phone] | | [facility] | | [address] | | | - LABORATORY | | [...] + | [facility] | [address] | [place] | [phone] | | [facility] | | [address] | | | - LABORATORY | | [...] + | [facility] | [address] | [place] | [phone] | | [facility] | | [address] | | | - LABORATORY | | [...] ST. | [address] | [place] | [phone] | | [facility] | | [address] | | | - LABORATORY | | [...] | | Eosinophils | | | [facility] | | [...] | Basophils | | K/uL | [facility] | | | | | [...] [address] | [place] | [phone] | | [facility] | | [address] | | | - LABORATORY | | [...] (H) | 7 - 18 mg/dL | [facility] | | | | | | [facility] | | | | | | MEDICAL | | | | | | CENTER - | | | | | | LABORATORY | | + + + + + + | Creatinine | 2.24 (H) | 0.60 - 1.30 | [facility] | | | | | mg/dL | [facility] | | | | | | MEDICAL | | | | | | CENTER - | | | | | | LABORATORY | | + + + + + + | eGFR if not | 22 (L)Comment: | >=60 | [facility] | | | | GLOMERULAR FILTRATION | mL/min/1.73m2 | [facility] | | | BENINESE | RATE,ESTIMATED | | MEDICAL | | | | mL/min/1.39y9Pmuh than | | CENTER - | | [...] + | [facility] | [address] | [place] | [phone] | | [facility] | | [address] | | | - LABORATORY | | [...] [address] | [place] | [phone] | | [facility] | | [address] | | | - LABORATORY | | [...] [address] | [place] | [phone] | | [facility] | | [address] | | | - LABORATORY | | [...] + | [facility] | [address] | [place] | [phone] | | [facility] | | [address] | | | - LABORATORY | | [...] [address] | [place] | [phone] | | [facility] | | [address] | | | - LABORATORY | | [...] [address] | [place] | [phone] | | [facility] | | [address] | | | - LABORATORY | | [...] [address] | [place] | [phone] | | [facility] | | [address] | | | - LABORATORY | | [...] [address] | [place] | [phone] | | [facility] | | [address] | | | - LABORATORY | | [...] mL/min/1.73m2 | [facility] | | | BENINESE | RATE,ESTIMATED | | MEDICAL | | | | mL/min/1.35f0Bpni than | | CENTER - | | [...] [address] | [place] | [phone] | | [facility] | | [address] | | | - LABORATORY | | [...] [address] | [place] | [phone] | | [facility] | | [address] | | | - LABORATORY | | [...] | [facility] | [address] | [place] | [phone] | | [facility] | | [address] | | | - LABORATORY | | [...] [address] | [place] | [phone] | | 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 | |Tricuspid Valve | |Uvga-lo-ybpifmgu tricuspid regurgitation suggestive of a mildly elevated [...] LA Volume: 60.67 ml | | EF Zuarxhhvb18% | | | | Left Ventricle | [...] [address] | [place] | [phone] | | [facility] | | [address] | | | - LABORATORY | | [...] [address] | [place] | [phone] | | [facility] | | [address] | | | - LABORATORY | | [...] [address] | [place] | [phone] | | [facility] | | [address] | | | - LABORATORY | | [...] [address] | [place] | [phone] | | [facility] | | [address] | | | - LABORATORY | | [...] + | [facility] | [address] | [place] | [phone] | | [facility] | | [address] | | | - LABORATORY | | [...] mL/min/1.73m2 | [facility] | | | BENINESE | RATE,ESTIMATED | | MEDICAL | | | | mL/min/1.03d1Jlgm than | | CENTER - | | [...] | ine Ratio | | | [facility] | | | | | | MEDICAL [...] + | [facility] | [address] | [place] | [phone] | | [facility] | | [address] | | | - LABORATORY | | [...] [address] | [place] | [phone] | | [facility] | | [address] | | | - LABORATORY | | [...] + | [facility] | [address] | [place] | [phone] | | [facility] | | [address] | | | - LABORATORY | | [...] [address] | [place] | [phone] | | [facility] | | [address] | | | - LABORATORY | | [...] [address] | [place] | [phone] | | [facility] | | [address] | | | - LABORATORY | | [...] [address] | [place] | [phone] | | [facility] | | [address] | | | - LABORATORY | | [...] ST. | [address] | [place] | [phone] | | [facility] | | [address] | | | - LABORATORY | | [...] [address] | [place] | [phone] | | [facility] | | [address] | | | - LABORATORY | | | | + + + + + Magnesium (11/04/2017 4:19 AM PST) + +-------+ + + + | Component | Value | Ref Range | Performed | Pathologist | | | | | At | Signature | + +-------+ + + + | Magnesium | 1.9 | 1.8 - 2.5 mg/dL | [facility] | | | | | | [facility] | | | | | | MEDICAL [...] + | [facility] | [address] | [place] | [phone] | | [facility] | | [address] | | | - LABORATORY | | [...] ST. | [address] | [place], [place] | [phone] | | [facility] | | [address] | | | - LABORATORY | | [...] | | GLOMERULAR FILTRATION | mL/min/1.73m2 | [facility] | | | BENINESE | RATE,ESTIMATED | | MEDICAL | | | | mL/min/1.58r9Iibn than | | CENTER - | | [...] | | | | | mg/dL | [facility] | | | | | | MEDICAL [...] [address] | [place] | [phone] | | [facility] | | [address] | | | - LABORATORY | | [...] [address] | [place] | [phone] | | [facility] | | [address] | | | - LABORATORY | | [...] + | [facility] | [address] | [place] | [phone] | | [facility] | | [address] | | | - LABORATORY | | [...] [address] | [place] | [phone] | | [facility] | | [address] | | | - LABORATORY | | [...] [address] | [place] | [phone] | | [facility] | | [address] | | | - LABORATORY | | [...] | | | | incubation. | | [facility] | | | | | | [...] [address] | [place] | [phone] | | [facility] | | [address] | | | - LABORATORY | | [...] | | | POC | | | [facility] | | | | | | MEDICAL [...] + | [facility] | [address] | [place] | [phone] | | [facility] | | [address] | | | - LABORATORY | | [...] ST. | [address] | [place] | [phone] | | [facility] | | [address] | | | - LABORATORY | | [...] [address] | [place] | [phone] | | [facility] | | [address] | | | - LABORATORY | | [...] + | [facility] | [address] | [place], [place] | [phone] | | [facility] | | [address] | | | - LABORATORY | | [...] + | [facility] | [address] | [place] | [phone] | | [facility] | | [address] | | | - LABORATORY | | [...] + | [facility] | [address] | [place] | [phone] | | [facility] | | [address] | | | - LABORATORY | | [...] [address] | [place] | [phone] | | [facility] | | [address] | | | - LABORATORY | | [...] + | Performed at: 01 - [facility] [place] [address], | REFERENCE LAB | | [place], [place] [id number] [employer] Developer: Ernie Lee MD, Phone: | [facility] - [facility] | | [phone] | | + + + + + + + + | Performing | Address | City/State/Zipcode | Phone Number | | Organization | | | | + + + + + | REFERENCE LAB | [address] | [place] [address] | [phone] | | [facility] | [address] [...] [address] | [place] | [phone] | | [facility] | | [address] | | | - LABORATORY | | [...] + | [facility] | [address] | [place] | [phone] | | [facility] | | [address] | | | - LABORATORY | | [...] [address] | [place] | [phone] | | [facility] | | [address] | | | - LABORATORY | | [...] test | | | | | | ([id number]). | | | | + + + + + + + + | Specimen | + + | Blood | + + + + + | Narrative | Performed At | + + + | Performed at: - [place] [address], | REFERENCE LAB | | [place], [place] [id number] [employer] Developer: Ernie Lee MD, Phone: | [facility] - [facility]E | | [phone] | | + + + + + + + + | Performing | Address | City/State/Zipcode | Phone Number | | Organization | | | | + + + + + | REFERENCE LAB | [address] | [place] [address] | [phone] | | [facility] | Drive [...] mL/min/1.73m2 | [facility] | | | BENINESE | RATE,ESTIMATED | | MEDICAL | | | | mL/min/1.60p4Oorq than | | CENTER - | | [...] [address] | [place] | [phone] | | [facility] | | [address] | | | - LABORATORY | | [...] | [facility] [address] [facility] | [address] | [place] | [phone] | | [facility] | | [address] | | | - LABORATORY | | [...] + | [facility] | [address] | [place] | [phone] | | [facility] | | [address] | | | - LABORATORY | | [...] | | POC | | | [facility] | | | | | [...] [address] | [place] | [phone] | | [facility] | | [address] | | | - LABORATORY | | [...] + | [facility] | [address] | [place] | [phone] | | [facility] | | [address] | | | - LABORATORY | | | | + + + + + CT Abdomen Pelvis wo Contrast (11/02/2017 7:27 PM [facility]) + + | Specimen | + + [...] ST. | [address] | [place], [place] | [phone] | | [facility] | | [address] | | | - LABORATORY | | [...] [address] | [place] | [phone] | | [facility] | | [address] | | | - LABORATORY | | [...] | [facility] | [address] | [place] | [phone] | | [facility] | | [address] | | | - LABORATORY | | [...] [address] | [place] | [phone] | | [facility] | | [address] | | | - LABORATORY | | [...] [address] | [place] | [phone] | | [facility] | | [address] | | | - LABORATORY | | [...] [address] | [place] | [phone] | | [facility] | | [address] | | | - LABORATORY | | [...] [address] | [place] | [phone] | | [facility] | | [address] | | | - LABORATORY | | [...] [address] | [place] | [phone] | | [facility] | | [address] | | | - LABORATORY | | [...] + | [facility] | [address] | [place] | [phone] | | [facility] | | [address] | | | - LABORATORY | | [...] [address] | [place] | [phone] | | [facility] | | [address] | | | - LABORATORY | | [...] [address] | [place] | [phone] | | [facility] | | [address] | | | - LABORATORY | | [...] [address] | [place] | [phone] | | [facility] | | [address] | | | - LABORATORY | | [...] ST. | [address] | [place] | [phone] | | [facility] | | [address] | | | - LABORATORY | | [...] [address] | [place] | [phone] | | [facility] | | [address] | | | - LABORATORY | | [...] + | [facility] | [address] | [place] | [phone] | | [facility] | | [address] | | | - LABORATORY | | [...] mL/min/1.73m2 | [facility] | | | BENINESE | RATE,ESTIMATED | | MEDICAL | | | | mL/min/1.80f3Lbzy than | | CENTER - | | [...] + | [facility] | [address] | [place] | [phone] | | [facility] | | [address] | | | - LABORATORY | | [...] [address] | [place] | [phone] | | [facility] | | [address] | | | - LABORATORY | | [...] - 1.030 | [facility] | | | [place] | | | [facility] | | [...] | | Urine | | | [facility] | | [...] + | [facility] | [address] | [place] | [phone] | | [facility] | | [address] | | | - LABORATORY | | [...] | | | | | | [employer] | | | | | [...] + | [facility] | [address] | [place] | [phone] | | [facility] | | [address] | | | - LABORATORY | | [...] [address] | [place] | [phone] | | [facility] | | [address] | | | - LABORATORY | | [...] + | [facility] | [address] | [place] | [phone] | | [facility] | | [address] | | | - LABORATORY | | [...] + | [facility] | [address] | [place] | [phone] | | [facility] | | [address] | | | - LABORATORY | | [...] [address] | [place] | [phone] | | [facility] | | [address] | | | - LABORATORY | | [...] [address] | [place] | [phone] | | [facility] | | [address] | | | - LABORATORY | | [...] + | [facility] | [address] | [place] | [phone] | | [facility] | | [address] | | | - LABORATORY | | [...] | third generation TSH | uIU/mL | [facility] | | | | test. | | [...] [address] | [place] | [phone] | | [facility] | | [address] | | | - LABORATORY | | [...] | | | | | | [employer] | | | | | [...] [address] | [place] | [phone] | | [facility] | | [address] | | | - LABORATORY | | [...] [address] | [place] | [phone] | | [facility] | | [address] | | | - LABORATORY | | [...] [address] | [place] | [phone] | | [facility] | | [address] | | | - LABORATORY | | [...] not | 12 (L)Comment: | >=60 | [facility] | | | | GLOMERULAR FILTRATION | mL/min/1.73m2 | [facility] | | | BENINESE | RATE,ESTIMATED | | MEDICAL | | | | mL/min/1.64o9Yham than | | CENTER - | | [...] + | [facility] | [address] | [place] | [phone] | | [facility] | | [address] | | | - LABORATORY | | [...] ST. | [address] | [place], [place] | [phone] | | [facility] | | [address] | | | - LABORATORY | | [...] [address] | [place] | [phone] | | [facility] | | [address] | | | - LABORATORY | | [...] [address] | [place] | [phone] | | [facility] | | [address] | | | - LABORATORY | | [...] for comparison only - no result from [place]. | [facility] | + + + [...] | | | | | | use [place] 10/325 if ordered. If | | | [...] | | | | | | | 1541-2561 Use NIGHT DOSE for | | | | | | | doses scheduled: HS, 3AM, | | | | | | | Nighttime 6300-7843, | | | | | | + [...] scheduled: AC, | | | NPO, Daytime 2327-1916 Use NIGHT | | | DOSE for doses scheduled: | | | HS, 3AM, Nighttime 9856-9840, | | + +---+ | | | [...] | | | | | | Infiltration, [facility] [employer], Starting | | | | | | [...] | | | DAILY, First dose on [facility] 11/04/17 | | AM PST | [...]
--- OUTSIDE RECORDS SUMMARY | ~2019-07-27 | XMS | Encounter Summary ---
Demographics + + + | Address | [address] | | | [place] [address] | + + + | Home Phone | | + + + | Preferred Language | Unknown | + + + | Marital Status | Single | + + + | Advent Affiliation | Unknown | + + + | Race | Unknown | + + + | Ethnic Group | Unknown | + + + Author + + + | Author | [facility] | | | and [place] | + + + | Organization | [facility] | | | and [place] | + + + | Address | Unknown | + + + | Phone | Unavailable | + + + Support + + + + + | Name | Relationship | Address | Phone | + + + + + | India Tilley | ECON | [address] | | | | | [place], [place] | | | | | [address] | | + + + + + | Yina La | ECON | Unknown | | + + + + + | Yina Peterson | ECON | Unknown | | + + + + + | Leatha Casillas | ECON | Unknown | | + + + + + Care Team Providers + +------+ + | Care Police Chief Deputy Name | Role | Phone | + [...] Required | | deconditioni | DO [address] | | | | | | ng Anemia | [place], [place] | | | | | | of chronic | [address] | | | | | | renal | [place], [place] | | | | | | failure, | [address] | | | | | | stage 5 | Phone: | | | | | | ([facility]) | [phone] | | | | | | Closed | Fax: | | | | | | fracture of | [phone] | | | | | | right [...] | | | | | | | ([facility]) | | | +--------+--------+ + + + + Encounter Details +--------+ + + + + | Date | Type | Department | Care Team | Description | +--------+ + + + + | 12/04/ | Hospital | [facility] | Nick Mendoza MD | Closed fracture of | | 2019 - | Encounter | MED [facility] SUR[facility] | [address] | neck of right femur, | | | | [address] | [place] | initial encounter | | 12/09/ | | [place] [address] | [address] | ([facility]) (Primary Dx); | | 2019 | | [phone] | | Non-compliance; End | | | | | Scott Koroma MD | stage renal disease | | | | | [address] | ([facility]); Type 2 | | | | | [place], [place] | diabetes mellitus | | | | | [address] | with stage 4 chronic | | | | | | kidney disease, | | | | | | with long-term | | | | | | current use of | | | | | | insulin ([facility]); | | | | | | Closed fracture of | | | | | | right hip, initial | | | | | | encounter ([facility]); | | | | | | Type 2 DM with CKD | | | | | | stage 5 and | | | | | | hypertension ([facility]); | | | | | | Renal bone disease; | | | | | | Physical | | | | | | deconditioning; | | | | | | Anemia of chronic | | | | | | renal failure, stage | | | | | | 5 ([facility]); Closed | | | | | | [...] as of this encounter Discharge Summaries Scott Koroma MD - 12/09/2018 12:04 PM PDTFormatting of this note might be different fro m the original. DISCHARGE SUMMARY Pt. Name/Age/: Estefani Tilley 73 y.o. 1945 Date of Admission: 12/04/2018 Date of Discharge: 12/09/2018 Admitting Physician: Scott Koroma MD PCP: Francisca Womack Discharging Physician: Scott Koroma MD Primary Discharge Dx: Closed right hip [...] doxercalciferol HYDROcodone-acetaminophen 5-325 mg per tablet aka: NORCO TRUE METRIX BLOOD GLUCOSE TEST Condition on Discharge: Stable Disposition: Patient was discharged to home with home health Follow-Up Plans: One month Code Status/Advance Directive (Pertinent discussions/declarations): Prior Electronically signed by: Scott Koroma, 12/20/2018 12:05 [facility] Scott Koroma MD at 05/2019 12:10 PM PDTdocumented in this encounter Discharge Instructions Instructions Gopi Muñoz DO - . Please keep your old HD appt. at [facility] for 12/12/2018. 2. Call our Office if you change your mind and wish to go to [facility] , for further R ehab. [...] as of this encounter Progress Notes Nidia Castano, RN - 12/09/2018 6:31 PM PDTAVS, including newly prescribed medicatio ns, follow-up instructions (with both Drs. Muñoz and Manish), and s/s emergency/when t o call MD, reviewed thoroughly with pt and son. Questions answered. Pt left unit via WC, bel ongings in hand. Son to provide ride home. Case management to follow-up tomorrow regarding h ome health and DME order. 6: 32 PM PDTGopi Muñoz, DO - 12/08/2018 10:04 PM PDTFormatting of this note might be d ifferent from the original. MERGED WITH [facility] [address] [place] [address] PROGRESS NOTE Pt. Name/Age/: Estefani Tilley 73 y.o. 1945 Med. Record Number: [id number] Date of admission: 12/04/2018 NEPHROLOGY HPI - Pt seen at 1100. She appears more happy today. Voiding w/o the baez. Lab Results Component Value Date POCGLU 112 [...] 1kg) Intake/Output Summary (Last 24 hours) at 12/08/182204 Last data filed at 12/08/18 1818 Gross per 24 hour Intake 850 ml Output 625 ml Net 225 ml Heart: Regular rate and rhythm with no S3, S4, murmur or rub. Lungs: Prolonged expiratory phase, with findings of [place] rales lower 1/4 both lungs. Abdomen: Soft, [...] HD tomorrow and assess for DC soon. [facility] Amol Green MD - 12/08/2018 3:29 PM [...] decision regard ing D/C. Pb Hammond MD opi Muñoz DO - 12/07/2018 8:15 PM PDTNEPHROLOGY Pt [...] going to any Rehab. Ctr after DC. [facility] Scott Tadeo MD - 12/07/2018 8:56 AM [...] for discharge to home without enlisting help Gopi Hassan DO - 12/06/2018 5:33 PM PDT MERGED WITH [facility] [address] [place] [address] PROGRESS NOTE Pt. Name/Age/: Estefani Tilley 73 y.o. 1945 Med. Record Number: [id number] Date of admission: 12/04/2018 NEPHROLOGY HPI - (Patient seen at 0900). She is dysphoric about her hospital diet, and being inpatie nt. States that her hip pain is satisfactory. She is agreeable to having the Baez DC'd. Lab Results Component Value Date POCGLU [...] Lungs: Prolonged expiratory phase, with findings of [place] rales lower 1/4 both lungs. Abdomen: Soft, [...] and diet restriction. 2. We will DC Baez and allow her to use a bedside commode. 3. Continue PT, OT, and add IV Ferrlecit to her regimen. 4. She is evelin that she will not agree to go to an SNF and wishes to go home when felt ap propriate [facility] Scott Tadeo MD - 12/06/2018 8:02 AM [...] PM PDT PHARMACY SERVICES: ADMISSION MEDICATION REVIEW Estefani Tilley is a 73 y.o. female admitted on 12/04/2018. Patient is somewhat a reliable historian. Location of Patient when reviewed: ED X Medical Floor Patient s prior to admit medication and over the counter (OTC) medications/herbal supplem ents list obtained from: X Verbal interview X Patient able to recall SOME Name, strength, and directions X Pharmacy list names: [facility] Johnson ([place]) X Outside Information Vaccines up to date? [...] did not want to answer medication history setup technician's questions; barely verifie d her name. Answered questions with head nods or patients stating that she was not taking a medication. 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 Provider albuterol 90 mcg/puff inhaler Inhale 2 puffs into the lungs 4 times daily as needed for Sh ortness of Breath. Taking Historical ProviderMD ARTIFICIAL TEAR SOLUTION OP Place 1-2 drops into both eyes as needed (for dry eyes). Renita barreto Historical Provider, aspirin 81 mg EC tablet Take [...] into the vein Three times a w ho-chunk. Historical Provider, epoetin karthik (EPOGEN, PROCRIT) 10,000 units/mL injection Inject 10,000 Units under the ski n Three times a week. Historical Provider, furosemide (LASIX) 80 mg tablet Take 1 tablet by mouth Daily. Taking 50 tablet Edison avila MD gabapentin (NEURONTIN) 100 mg capsule Take 200 mg by mouth every morning. Historical Pro MD kimberlee gabapentin (NEURONTIN) 100 mg capsule Take 100 mg by mouth Daily. At noon Historical Pro MD kimberlee Glucose Blood (TRUE METRIX BLOOD GLUCOSE TEST ) by In Vitro route. Historical Provider , HYDROcodone-acetaminophen (NORCO) 5-325 mg per tablet Take [...] mouth every morning (be fore breakfast). Taking Simran Mooney MD lidocaine-prilocaine (EMLA) cream Apply 1 Application topically Daily. To access 1 hour pr ior to dialysis Taking Simran ProviderMD losartan (COZAAR) 100 MG tablet Take 1 tablet by mouth Daily. Taking Gopi Muñoz DO montelukast (SINGULAIR) 10 mg tablet Take 10 mg by mouth nightly. For asthma or allergies Taking Simran Mooney MD olopatadine (PATANOL) 0.1% ophthalmic solution Place 1-2 drops into both eyes 2 times maite y. Taking Simran Mooney MD pantoprazole (PROTONIX) 40 mg tablet Take 40 mg by mouth every morning (before breakfast). Taking Simran Mooney MD UNABLE TO FIND Med Name: Cadoexomer Iodine 0.9 % gel. Apply a small amount to affected ar ea as directed during dressing changes. Simran Mooney MD Medication review performed and electronically signed by Kerry Jordan, Vegetable Grower 12/05/2018 14:45 Reviewed by Flora Watts, PharmD 12/05/2018 15:51 Scott Tadeo MD - 12/05/2018 7:41 AM PDT Patient feels better than yest Vitals: 12/05/18 0731 BP: 152/71 Pulse: 67 Resp: 16 Temp: 36.4 C (97.6 F) Intake/Output Summary (Last 24 hours) at 12/05/18 0752 Last data filed at 12/05/18 8506 Gross per 24 hour Intake 1115 ml [...] with PT docu mented in this encounter Plan of Treatment + [...] | | | | | | 5 ([facility]) Closed | | | | | | [...] - | | | | | | 2018 | | | [...] | | | ON?03/ | | | | | | 9 | | | 13:34? | | | [place] | | | MS, | | | ESTEFANI | | | | | | R?MRN: | | | | | | [id number] | | | [id number] | | | riteri | | | [...] | | | St. | | | [place] | | | y | | | [...] | | | [facility] | [facility] | [place] | | | [facility] | | | [facility] | | | [facility] | | | [place] | | | y | | | [...] | | | St. | | | [place] | | | y H. | | [...] | | e of | | | [place] | | | | | | [place] [...] | | | St. | | | [place] | | | y H. | | [...] the | | | | | | rn heart | | | al | | | [...] | | | St. | | | [place] | | | y H. | | [...] | | e of | | | [place] | | | | | | [place] [...] | | | [facility] | | | [place] | | | [place] | | | ID | | | [...] | | | [facility] | | | [place] | | | [place] | | | ID | | | [...] | | | [facility] | | | [place] | | | [place] | | | ID | | | [...] | | | [facility] | | | [place] | | | [place] | | | ID | | | [...] | | | [facility] | | | [place] | | [place] | | | ID | | | [...] | | | [facility] | | | [facility] | | | | | | HEALTH [...] | | | [id number] | | | [id number] | | | 3131 | | | [...] + | [facility] | [address] | [place] | [phone] | | [facility] | | [address] | | | - LABORATORY | | [...] + | [facility] | [address] | [place] | [phone] | | [facility] | | [address] | | | - LABORATORY | | [...] | | 25 Hydroxy | | | [facility] | | [...] [address] | [place] | [phone] | | [facility] | | [address] | | | - LABORATORY | | [...] | | POC | | | [facility] | | [...] + | [facility] | [address] | [place] | [phone] | | [facility] | | [address] | | | - LABORATORY | | [...] | | POC | | | [facility] | | [...] [address] | [place] | [phone] | | [facility] | | [address] | | | - LABORATORY | | [...] [address] | [place] | [phone] | | [facility] | | [address] | | | - LABORATORY | | [...] | | Top Tube | | | [facility] | | [...] [address] | [place] | [phone] | | [facility] | | [address] | | | - LABORATORY | | | | + + + + + CBC no Differential (12/07/2018 6:34 AM PDT) + + + + + + | Component | Value | Ref Range | Performed | Pathologist | | | | | At | Signature | + + + + + + | WBC | 6.0 | 4.0 - 11.0 K/uL | [facility] | | | [facility] | [facility]ICAL | | | | | | CENTER - | | | | | | LABORATORY | | + + + + + + | RBC | 3.50 (L) | 3.70 - 5.20 | [facility] | | | | | M/uL | [facility] | [...] + | [facility] | [address] | [place] | [phone] | | [facility] | | [address] | | | - LABORATORY | | [...] [address] | [place] | [phone] | | [facility] | | [address] | | | - LABORATORY | | [...] [address] | [place] | [phone] | | [facility] | | [address] | | | - LABORATORY | | [...] + | [facility] | [address] | [place] | [phone] | | [facility] | | [address] | | | - LABORATORY | | [...] + | [facility] | [address] | [place], [place] | [phone] | | [facility] | | [address] | | | - LABORATORY | | | | + + + + + Parathyroid Hormone, Intact (12/06/2018 5:49 AM PDT) + +---------+ + + + | Component | Value | Ref Range | Performed | Pathologist | | | | | At | Signature | + +---------+ + + + | PTH Intact | 205 (H) | 19 - 88 pg/mL | [facility] | | | | | [...] [address] | [place] | [phone] | | [facility] | | [address] | | | - LABORATORY | | [...] | | A1c | | | [facility] | | | | | | MEDICAL | | | | | | CENTER - | | | | | | LABORATORY | | + +---------+ + + + | Estimated | 143 | mg/dL | [facility] | | | [...] [address] | [place] | [phone] | | [facility] | | [address] | | | - LABORATORY | | | | + + + + + CBC no Differential (12/06/2018 5:49 AM PDT) + + + + + + | Component | Value | Ref Range | Performed | Pathologist | | | | | At | Signature | + + + + + + | WBC | 7.8 | 4.0 - 11.0 K/uL | [facility] | | | | | [facility] | | | | | | MEDICAL | | | | | | CENTER - | | | | | | LABORATORY | | + + + + + + | RBC | 3.48 (L) | 3.70 - 5.20 [...] | nRBC | | K/uL | [facility] | | | | [...] [address] | [place] | [phone] | | [facility] | | [address] | | | - LABORATORY | | [...] | | | POC | | | [facility] | | | [...] + | [facility] | [address] | [place] | [phone] | | [facility] | | [address] | | | - LABORATORY | | [...] | | | POC | | | [facility] | | | [...] [address] | [place] | [phone] | | [facility] | | [address] | | | - LABORATORY | | [...] | | | | | uIU/mL | [facility] | | | | [...] ST. | [address] | [place], [place] | [phone] | | [facility] | | [address] | | | - LABORATORY | | | | + + + + + Ferritin (12/05/2018 6:05 AM PDT) + +---------+ + + + | Component | Value | Ref Range | Performed | Pathologist | | | | | At | Signature | + +---------+ + + + | FERRITIN | 441 (H) | 7 - 271 ng/mL | [facility] | | | | | [...] [address] | [place] | [phone] | | [facility] | | [address] | | | - LABORATORY | | [...] | | SATURATION | | | [facility] | | [...] + | [facility] | [address] | [place] | [phone] | | [facility] | | [address] | | | - LABORATORY | | | | + + + + + Magnesium (12/05/2018 6:05 AM PDT) + +-------+ + + + | Component | Value | Ref Range | Performed | Pathologist | | | | | At | Signature | + +-------+ + + + | Magnesium | 2.1 | 1.6 - 2.6 mg/dL | [facility] | | | | | | [facility] | | | [...] [address] | [place] | [phone] | | [facility] | | [address] | | | - LABORATORY | | | | + + + + + Phosphorus (12/05/2018 6:05 AM PDT) + +---------+ + + + | Component | Value | Ref Range | Performed | Pathologist | | | | | At | Signature | + +---------+ + + + | Phosphorus | 6.3 (H) | 2.4 - 5.1 mg/dL | [facility] | | | | [...] [address] | [place] | [phone] | | [facility] | | [address] | | | - LABORATORY | | [...] | | | | mL/min/1.73m2 | [facility] | | | [place] | | | MEDICAL | | | [...] [address] | [place] | [phone] | | [facility] | | [address] | | | - LABORATORY | | [...] + + + + | RBC | 3.77 | 3.70 - 5.20 | [...] Low IPF are consistent | | [facility] | | | Fraction | with a [...] ST. | [address] | [place] | [phone] | | [facility] | | [address] | | | - LABORATORY | | [...] [address] | [place] | [phone] | | [facility] | | [address] | | | - LABORATORY | | [...] | | POC | | | [facility] | | | | | | [...] + | [facility] | [address] | [place] | [phone] | | [facility] | | [address] | | | - LABORATORY | | [...] ST. | [address] | [place] | [phone] | | [facility] | | [address] | | | - LABORATORY | | [...] | | + +---------+ + + [place] Clotilde Hammonds No Mata (12/04/2018 4:58 PM PDT) + + | [...] | | in | | | [facility] | | [...] + | [facility] | [address] | [place] | [phone] | | [facility] | | [address] | | | - LABORATORY | | [...] | | Time | | seconds | [facility] | | | | [...] [address] | [place] | [phone] | | [facility] | | [address] | | | - LABORATORY | | [...] + | [facility] | [address] | [place] | [phone] | | [facility] | | [address] | | | - LABORATORY | | [...] mL/min/1.73m2 | [facility] | | | [place] | | | MEDICAL | | | [...] [address] | [place] | [phone] | | [facility] | | [address] | | | - LABORATORY | | | | + + + + + CBC with Differential (12/04/2018 2:01 PM PDT) + + + + + + | Component | Value | Ref Range | Performed | Pathologist | | | | | At | Signature | + + + + + + | WBC | 10.5 | 4.0 - 11.0 K/uL | [facility] | | | | [facility] | | | | | | MEDICAL | | | | | | CENTER - | | | | | | LABORATORY | | + + + + + + | RBC | 3.78 | 3.70 - 5.20 | [...] | Immature | | K/uL | [facility] | | | Granulocyte | | | [...] ST. | [address] | [place], [place] | [phone] | | [facility] | | [address] | | | - LABORATORY | | [...] First dose on Wed | | AM PDT | [...] | | | 50 mcg, Intravenous, ONCE, Wed | | 19 1:59 | | | [...] Units | | | | Intravenous, ONCE, Wed /27/19 at | | AM PDT | | [...] Units | | | | Intravenous, ONCE, Wed12/09/18 at | | AM PDT | | [...] | | | | | CONTINUOUS, Starting 12/07/18 | | | | | | | [...] | | | | | CONTINUOUS, Starting 12/09/18 | | | | | | | [...] | | | | | Intravenous, ONCE, Abr[place] 12/04/18 at | | PM PDT | | | | | 1440, For 1 dose | | | | | | + +-------+ +--------+---+---+ +---+---+ | | | +---+---+ + +-------+ +------+---+---+ | HYDROmorphone (DILAUDID) | Given | 12/05/19 | 1 mg | | | | injection 1 mg 1 mg, | | 19 3:16 | | | | | Intravenous, ONCE, 12/04/18 at | | PM PDT | [...] | | | | | | | 1839-0694 Use NIGHT DOSE for | | | | | | | doses scheduled: HS, 3AM, | | | | | | | Nighttime 4491-9189, | | | | | | + +-------+ +---------+---+ + + +---+ | | | + +---+ | insulin lispro (humaLOG | | | BLANCA) injection (pen) 0-12 | | | Units [...] scheduled: AC, NPO, Daytime | | | 2252-2597 Use NIGHT DOSE for | | | doses scheduled: HS, 3AM, | | | Nighttime 5737-1072, | | + +---+ | | | + +---+ + +-------+ +--------+---+---+ | labetalol (NORMODYNE) tablet | Given | 12/10/19 | 200 mg [...] | oxyCODONE (ROXICODONE) tablet | Given | 03/29/20 | 5 mg | | | | [...] | | +-------+ +-------+---+---+ | Given | 12/10/19 | [...] PDT | | | | | on Wed12/05/18 at 1015 | | | | | [...] PM PDT | | | | | Abril 12/04/18 at 1845, | | | | | | | Recovery/Phase I | | | | | | + +---------+ +--------+ +---+ +---+---+ | | | +---+---+ documented in this encounter
--- OUTSIDE RECORDS SUMMARY | ~2019-07-27 | XMS | Encounter Summary ---
Demographics + + + | Address | [address] | | | [place] [address] | + + + | Home Phone | | + + + | Preferred Language | Unknown | + + + | Marital Status | Single | + + + | Yazdanism Affiliation | Unknown | + + + | Race | Unknown | + + + | Ethnic Group | Unknown | + + + Author + + + | Author | [facility] | | | and [place] | + + + | Organization | [facility] | | | and [place] | + + + | Address | Unknown | + + + | Phone | Unavailable | + + + Support + + + + + | Name | Relationship | Address | Phone | + + + + + | India Tilley | ECON | [address] | | | | | [place], [place] | | | | | [address] | | + + + + + | Yina La | ECON | Unknown | | + + + + + | Yina Peterson | ECON | Unknown | | + + + + + | Leatha Casillas | ECON | Unknown | | + + + + + Care Team Providers + +------+ + | Care Stoner Out Name | Role | Phone | + [...] Specialty | Home Health | Diagnoses | Tejeda | Prov Hh | | | Services | Services | CKD | Gary, | [place] | | | Required | | (chronic | MD Mayelin | [address] | | | | | kidney | [address] | [facility] | | | | | disease) | [facility] | [place], [place] | | | | | stage 5, GFR | [place], [place] | [address] | | | | | less than | [address] | Phone: | | | | | 15 ml/min | Phone: | [phone] | | | | | (HCC) Type | [phone] | Fax: | | | | | 2 DM with | Fax: | [phone] | | | | | CKD stage 5 | [phone] | | | | | | and | | | | | | | hypertension | | | | | | | (HCC) | | | | | | | Acute | | | | | | | hemodialysis | | | | | | | encounter | | | | | | | (HCC) | | | +--------+ + + + [...] | +--------+ + + + + | 11/01/ | Hospital | [facility] | Gopi Muñoz | Hypoglycemia; | | 2018 - | Encounter | [facility] | M, DO [address] | Hypothermia, initial | | | | [address] | [place] | encounter; CKD | | 11/09/ | | [place] [address] | [place], [place] | (chronic kidney | | 2018 | | [phone] | [address] | disease) stage 5, | | | | | | GFR less than 15 | | | | | Rupal Laguna MD | ml/min ([facility]); | | | | | [address] | Essential | | | | | [place], [place] | hypertension; | | | | | [id number] | Sepsis, due to | | | | | | unspecified organism | | | | | Nora Leo MD | (HCC); Uremia; | | | | | [address] [facility] | Controlled type 2 | | | | | [place] [address] | diabetes mellitus | | | | | [phone] | with stage 5 chronic | | | | | | kidney disease not | | | | | | on chronic dialysis, | | | | | | with long-term | | | | | | current use of | | | | | | insulin ([facility]); End | | | | | | stage renal disease | | | | | | ([facility]); Type 2 DM | | | | | | with CKD stage 5 and | | | | | | hypertension (HCC); | | | | | | Severe | | | | | | protein-calorie | | | | | | malnutrition (HCC); | | | | | | Anemia in chronic | | | | | | kidney disease, on | | | | | | chronic dialysis | | | | | | ([facility]); Streptococcal | | | | | | bacteremia; Acute | | | | | | hemodialysis | | | | | | encounter ([facility]) | +--------+ + + + + [...] might be differ ent from the original. [place] HOSPITALIST DISCHARGE SUMMARY Pt. Name/Age/: Ara [...] into both eyes 2 times daily. aka: PATTOBI pantoprazole 40 mg tablet Take 40 mg by mouth every morning (before breakfast). aka: PROTONIX TRUE METRIX BLOOD GLUCOSE TEST by In Vitro route. UNABLE TO FIND Med Name: Cadoexomer Iodine 0.9 % gel. Apply a small amount to affected area as directed during dressing changes. Discontinued Medications DULoxetine [address] capsule aka: CYMBALTA insulin glargine 100 units/mL injection (vial) aka: [facility] COURSE: Please refer to the H&P for full details and the most recent rounding rounding (progress) n ote. In short this is a 72-year-old woman, history of hypertension, diabetes mellitus type 2 on insulin, chronic kidney disease of stage V, CAD, who presented to [facility] after be ing found down in [...] evaluation. At time of arrival to send [facility], patient was feeling much better and was [...] patient was switched to Levaquin. During evaluation e had a CT of the abdomen and [...] n/a DISPOSITION AND DISCHARGE INSTRUCTIONS: Follow-up Information [facility] On 11/10/2017. Why: 1:00pm Contact information: [address] [place] [id number] Follow up In 3 days. Francisca Womack PA-C In 3 days. Specialty: Internal Medicine Contact information: [address] [place] [address] Hemodialysis In 1 day. Contact information: Appointment at 1:30 PM Condition: Patient being discharged with condition improved and stable Diet: renal, carbohydrate controlled Greater than 30 minutes were spent on discharge and coordination of post-hospital care. Electronically signed by: Mayelin Vega MD, 11/09/2017 11:06 [facility] Portions of this chart may have been created with [employer] voice recognition software. Occasi onal wrong-word or sound-alike substitutions may have occurred due to the inherent mckeon itations of voice recognition software. Please read the chart carefully and recognize, using context, where these substitutions have occurred documented in this encounter Discharge Instructions AttachmentsThe following attachments cannot be sent through Care Everywhere.Balancing Calci um and Phosphorus, Kidney Disease (Peruvian)Hemodialysis (Peruvian)documented in this encounte r Medications at Time [...] + + +---------+ + + | Lancets [facility] | by Does not apply | | 0 | | | | | route. Use 1 [facility] | | | | 8 | | [...] Muñoz, DO - 11/09/2017 6:[address] [facility] [address] [place] [address] PROGRESS NOTE Pt. Name/Age/: Ara Tilley 72 y.o. 1945 Med. Record Number: [id number] Date of admission: 11/01/2017 NEPHROLOGY HPI - [...] 3. Complete 10 days total of AB's. [facility] Nora Headley MD - 11/09/2017 4:24 [...] Dalia Finnegan MSW - 11/09/2017 11:00 AM PSTRoryhotony met with Nikki, and RN was present [...] and she agreed. Nikki was raised in [place] and in [place], [place]. She has two brothers and two sisters, and h ad 4 children of her own. Her oldest child, daughter, two months ago. Nikki is gri eving her loss and teared up while talking about her. Her other children live in [facility] and one son has been [place] [facility] 23 years. She hasn't seen him since he was arr ested and is hopeful she will get to see him next year, as he is schedule to be released at that time. 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. She has at least 4 ye ars post high school education and studied [employer]. In the years prior to alf, she worked at [employer]. Nikki's mother had chronic kidney disease and [...] and picking up and going to the [facility] [place] reservation in [place]. She must plan it out, and that feels antithetical to her nature. Ginger escamilla was present and attentive while she discussed her grief around losing her family member s and her lifestyle, offered supportive parliamentary counsel. Chayo Ramirez RN - 11/09/2017 10:00 AM Cam GONZALEZ arrived at [facility]'s room around 0800 to begin dialysis. Afte r introducing myself and explaining why I was here she immediately became visibly frustrated and started crying. She said "it's terrible doing this for 6 hours, I can't even eat or use the restroom during it. I haven't even gotten breakfast today yet and they sent me pig gina n." She said she didn't want to [...] 11/08/2017 6:50 PM PSTThis provider, Palliative Care CONTROL CABINET ASSEMBLER, met briefly with "Nikki" Jose Raul rebecca [...] this note might be different from the [facility] [place] HOSPITALIST PROGRESS NOTE Patient: Ara Tilley : 1945: Age: 72 y.o. MedRec: [id number] Admission date: 11/01/2017 Hospital day # : [...] Subcutaneous Once per day on Wed Gopi M Stroemel, DO 10,000 Units at 0939 [NOV Hold] ferric gluconate (FERRLECIT) 125 mg in sodium chloride 0.9% 100 mL IVPB 125 mg Intravenous Daily Gopi Samuell, DO 110 mL/hr at 11/07/17 1143 125 mg at 11/07/17 1 143 [MAR Hold] furosemide (LASIX) tablet 80 mg 80 mg Oral BID (8 and 16) Darlin Moseley MD 80 mg at 11/07/17 1712 [NOV Hold] gabapentin (NEURONTIN) capsule 100 mg 100 mg [facility] 100 mg at 11/07/17 1159 [NOV Hold] gabapentin (NEURONTIN) capsule 200 mg 200 mg Oral BID Rupal Lgauna MD 2 00 mg at 11/07/172052 [NOV Hold] heparin 1,000 units/mL injection 500 [...] mg/m L 0.25 mg [employer] [facility] Short Story Writer Nora Leo MD [NOV Hold] labetalol (NORMODYNE) tablet 100 mg 100 mg Oral BID Darlin Moseley MD 100 mg at 11/08/17 0948 [NOV Hold] levoFLOXacin (LEVAQUIN) tablet 750 mg 750 mg Oral Every Other Day Oleagrio feliz MD 750 mg at 11/08/17 0945 [NOV Hold] levothyroxine (SYNTHROID) tablet 75 mcg 75 mcg Oral [place] AC Jessie Diop D 75 mcg at [...] 17 g Oral Daily PRPennie Laguna MD [MAR Hold] senna (SENOKOT) tablet [...] nephrology recs -Nephro rec permacath needed for care home dialysis -continue ferrlecit and Epogen 3. CAD- no signs of ACS, EKG RBBB, trop 0.03 at OSH -Continue aspirin, lipitor 4. Hypothyroidism -TSH WNL -Continue levothyroxine 5. HTN uncontrolled -Continue Labetalol and furosemide -Continue losartan 25 mg daily PPX: HSQ FEN: renal Mayelin Vega 11/08/2017 11:50 [facility] Nora Headley MD - 11/08/2017 10:06 [...] the original. [facility] [place] HOSPITALIST PROGRESS NOTE Patient: Ara Tilley : 1945: Age: 72 y.o. 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 CAD- no signs of ACS, EKG RBBB, trop 0.03 at OSH -Continue aspirin, lipitor 4. Hypothyroidism -TSH WNL -Continue levothyroxine 5. HTN uncontrolled -Continue Labetalol and furosemide -restart losartan 25 mg daily PPX: HSQ FEN: renal Mayelin Vega 11/07/2017 12:57 [facility] Cordell Palmer MD - 11/07/2017 9:43 AM PSTFormatting of this note might be different from the [facility] NE[facility]ROLOGY progress note Patient: Ara Tilley : [...] Intravenous Daily furosemide 80 mg Oral BID ( and ) gabapentin 100 mg Oral Daily at Noon [...] Darlin Moseley MD Electronically signed: 11/07/2017 9:[address] [facility] NEPHROLOGY Olegario Keen M D - 11/06/2017 2:[address] [facility] [place] HOSPITALIST PROGRESS NOTE Patient: Ara Tilley : 1945: Age: 72 y.o. MedRec: [id number] Admission date: 11/01/2017 Hospital day # : [...] Nightly Rupal Laguna MD 20 mg at 212 bisacodyl (DULCOLAX) suppository 10 mg 10 mg [...] Daily Gopi Muñoz DO 110 mL/hr at 02/24/18 1344 125 mg at 11/06/17 1344 furosemide [...] Procedure Component Value Units Date/Time Culture, Blood [[id number]] (Normal) Collected: 11/04/172121 Order Status: Completed Lab Status: Preliminary result Updated: 11/05/17930 Specimen: Blood from Line Culture No growth: Monitored continually by instrument for 5 days Culture, Blood [[id number]] (Normal) Collected: 11/04/17 2103 Order Status: Completed Lab Status: Preliminary result Updated: 11/05/17 0911 Specimen: Blood from Line Culture No growth: Monitored continually by instrument for 5 days Culture, Blood [[id number]] (Normal) Collected: 11/03/17 1506 Order Status: Completed [...] 60 -65%, no vegetation/endocarditis seen. -Continueceftriaxone started 2/20, azithromycin 11/03, changed to levofloxacin 11/04, plan [...] to determ ine if permacath needed for care home dialysis CAD no signs of ACS, EKG [...] Oral BID PRN Olegario Peng 11/06/2017 14:15 [facility] Darlin Palmer M D - 11/06/2017 9:10 AM PST [facility] progress note Patient: Ara Tilley : [...] Continuous Infusions: Heparin Infusion 200 Units/hr (11/06/17 0457) PRN Meds:acetaminophen, albumin, albuterol, bisacodyl, Hypoglycemia Management [...] Darlin Moseley MD Electronically signed: 11/06/2017 9:[address] [facility] NEPHROLOGY Olegario Keen M D - 11/05/2017 2:08 PM PST [facility] HOSPITALIST PROGRESS NOTE Patient: Ara Tilley : 1945: Age: 72 y.o. MedRec: [id number] Admission date: 11/01/2017 Hospital day # : [...] 2.5 mg Oral Daily Gopi Muñoz DO 2.5 mg a t 11/05/17 0809 [...] Units 1,500-6,000 Units Intercatheter PRN Gopi Muñoz, DO 2,800 Units at 11/04/17 2133 HYDROcodone-acetaminophen [...] Procedure Component Value Units Date/Time Culture, Blood [[id number]] (Normal) Collected: 11/04/172 Order Status: Completed Lab Status: Preliminary result Updated: 11/05/17 0931 Specimen: Blood from Line Culture No growth: Monitored continually by instrument for 5 days Culture, Blood [[id number]] (Normal) Collected: 11/04/172102 Order Status: Completed Lab Status: Preliminary result Updated: 11/05/17 0911 Specimen: Blood from Line Culture No growth: Monitored continually by instrument for 5 days Culture, Blood [[id number]] (Normal) Collected: 11/03/17 1506 Order Status: Completed Lab Status: Preliminary result Updated: 11/04/17 0311 Specimen: Blood from Peripheral Blood Culture No growth: Monitored continually by instrument for 5 days Culture, Blood [[id number]] (Abnormal) Collected: 11/03/17 0812 Order Status: Completed Lab Status: Preliminary result Updated: 11/05/17 0751 Specimen: Blood from Arm, Left Culture Positive Blood Culture (AA) Staphylococcus coagulase negative Comment: Identification and susceptibility to follow. Probable contaminant Gram Stain Result Gram positive cocci in clusters Comment: 2 of 4 bottles positive Culture, Respiratory, Lower, Smear [[id number]] Collected: 11/03/17 0727 Order Status: Completed Lab [...] units qhs -Cont ISS, appears controlled Sepsis 2/2 to likely UTI +/- CAP [...] PRN DULoxetine 30 mg Oral Daily epoetin akrthik 10,000 Units Subcutaneous Once per day on [...] Oral BID PRN Olegario Peng 11/05/2017 14:08 [facility] Darlin Palmer M D - 11/05/2017 1:53 PM PST [facility] progress note Patient: Ara Tilley : [...] Darlin Moseley MD Electronically signed: 11/05/2017 13:[address] [facility] NEPHROLOGY Gopi Mckenna , DO - 11/04/2017 6:[address] [facility] [address] [place] [address] PROGRESS NOTE Pt. Name/Age/: Ara Tilley 72 y.o. 1945 Med. Record Number: [id number] Date of admission: 11/01/2017 NEPHROLOGY HPI - [...] HD. Will do HD x 6 hrs, atilio alvarez to high Inpt case load here at [facility]. 2. probable pyelonephritis?--Day #3 Ceftriaxone, Day [...] for coverage of both organisms, Q 48H. [facility] Queenie Hall RN - 11/04/2017 10:23 AM PSTPatient transferred from ICU into room 307. Oriented to room an d call light. Bed alarm set. Call light in place. Remains on 2L via nasal canula. Makes need s known. Amanda Keen MD - 11/04/2017 7:21 AM PSTFormatting of this note might be different from the origin al. [facility] [place] HOSPITALIST PROGRESS NOTE Patient: Ara Tilley : 1945: Age: 72 y.o. MedRec: [id number] Admission date: 11/01/2017 Hospital day # : [...] mg 2.5 mg Oral Daily Gopi Muñoz, atorvaSTATin (LIPITOR) tablet 20 mg 20 mg [...] Procedure Component Value Units Date/Time Culture, Blood [[id number]] (Normal) Collected: 11/03/17 1506 Order Status: Completed Lab Status: Preliminary result Updated: 11/04/17 0311 Specimen: Blood from Peripheral Blood Culture No growth: Monitored continually by instrument for 5 days Culture, Blood [[id number]] (Normal) Collected: 11/03/17 0812 Order Status: Completed Lab Status: Preliminary result Updated: 11/03/17 2041 Specimen: Blood from Arm, Left Culture No growth: Monitored continually by instrument for 5 days Culture, Respiratory, Lower, Smear [[id number]] Collected: 11/03/17 0727 Order Status: Completed Lab Status: Preliminary result Updated: 11/03/17 1028 Specimen: Respiratory from Sputum, expectorated Gram Stain Result 3+ White Blood Cells 2+ Epithelial cells 2+ Gram positive cocci 2+ Gram positive bacilli 1+ Hyphael elements Influenza A and B RNA, NAAT [[id number]] (Normal) Collected: 11/02/17 1050 Order Status: Completed Lab Status: Final result Updated: 11/02/17 1125 Specimen: Respiratory from Nares Influenza A PCR Negative Influenza B PCR Negative Culture, Urine [[id number]] Collected: 11/02/17 0740 Order Status: Completed Lab Status: Preliminary result Updated: 11/03/17 1013 Specimen: Urine Culture >100,000 CFU/ml Lactose Fermenting Gram Negative Bacilli Comment: Identification and susceptibility to follow. Culture, Blood [[id number]] (Normal) Collected: 11/02/17 0024 Order Status: Completed Lab Status: Preliminary result Updated: 11/02/17 1241 Specimen: Blood from Peripheral Blood Culture No growth: Monitored continually by instrument for 5 days Culture, Blood [[id number]] (Abnormal) Collected: 11/02/17 0019 Order Status: Completed [...] 15:14 by Edison Short. Narrative: Culture, MRSA [[id number]] Collected: 11/01/17 2146 Order Status: Completed Lab [...] LLL concerning for PNA -Blood culture 11/02 09/16 Gram + cocci in chains -Repeat UA (+), urine culture >101081 GNB lactose fermenting -Continue ceftriaxone started 11/02, [...] Q30 Min PRN Olegario Peng 11/04/2017 7:21 [facility] Nick Aguillon, RN - 0 11/04/2017 1:06 AM PSTDialysis treatment started and Arterial pressures running in the -400s , trouble shooting ineffective, arterial and venous lines switched, pressures now -50s. Shama sarabia is running appropriately at this moment, will continue monitoring. Nick Guallpa Gopi Mckenna, DO - 11/03/2017 11:[address] [facility] [address] [place], [place] [id number] PROGRESS NOTE Pt. Name/Age/: Ara Tilley 72 y.o. 1945 Med. Record Number: [id number] Date of admission: 11/01/2017 NEPHROLOGY HPI - [...] anemia. 4. Encourage ambulation to minimize atelectasis. [facility] Olegario Keen MD - 11/03/2017 7:[address] [facility] [place] HOSPITALIST PROGRESS NOTE Patient: Ara Tilley : 1945: Age: 72 y.o. MedRec: [id number] Admission date: 11/01/2017 Hospital day # : [...] 150 mEq infusion Intravenous Contin uous Gopi Samuelcaio, DO 50 mL/hr at 11/02/17 1047 dextrose [...] Oral BID Rupal Laguna MD Stopped at 2224 levothyroxine (SYNTHROID) tablet 75 mcg 75 mcg Oral QAM AC Rupal Laguna MD 75 mcg at 11/03/17 06 lidocaine (LIDODERM) 5% patch 1 patch 1 [...] Rupal Laguna MD 40 mg at 11/03/17 06 polyethylene glycol (MIRALAX) powder 17 g 17 [...] PH UA 6.0 5.0 - 8.0 Specific [place] 1.010 1.001 - 1.030 PROTEIN UA 100 [...] Date/Time Influenza A and B RNA, NAAT [[id number]] (Normal) Collected: 11/02/17 1050 Order Status: Completed Lab Status: Final result Updated: 11/02/17 1125 Specimen: Respiratory from Nares Influenza A PCR Negative Influenza B PCR Negative Culture, Urine [[id number]] Collected: 11/02/17 0740 Order Status: Sent Lab Status: In process Updated: 11/02/17 0758 Specimen: Urine Culture, Blood [[id number]] (Normal) Collected: 11/02/17 0024 Order Status: Completed Lab Status: Preliminary result Updated: 11/02/17 1241 Specimen: Blood from Peripheral Blood Culture No growth: Monitored continually by instrument for 5 days Culture, Blood [[id number]] (Abnormal) Collected: 11/02/17 0019 Order Status: Completed Lab Status: Preliminary result Updated: 11/02/17 1515 Specimen: Blood from Peripheral Blood Culture Positive Blood Culture (AA) Gram Stain Result Gram positive cocci in chains Comment: One of four Blood Culture bottles POSITIVE. Critical Result called to and read b ack by Kristen Irving on 11/02/2017 at 15:14 by Edison Short. Narrative: Culture, MRSA [[id number]] Collected: 11/01/17 2146 Order Status: Sent Lab [...] Oral BID PRN Olegario Peng 11/03/2017 7:08 [facility] olph, Ta Restrepo, [facility] - 11/02/2017 3:43 PM PST PHARMACY SERVICES: [...] strength, and directions X Pharmacy list names: [facility] CORPORATE RECYCLING MANAGER (Prescription Monitoring Program) X [facility] reported information X Care Everywhere [...] Prior to Admission Sig: Patient taking differently ASSISTANT UNIT FORESTER as: Atorvastatin 20mg 1 tab by mouth nightly 1 tab by mouth every morning Calcium- vitamin d 600-400mg 1 tab by mouth twice daily 1 tab by mouth every morning Duloxetine 30mg DR 1 capsule by mouth daily Patient has not started this medication ASSISTANT UNIT FORESTER, cortés s not filled at pharmacy [id number] 200mg by mouth twice daily 200mg by mouth every morning labetalol 200mg 1 tab by mouth twice daily Patient has not started this medication ASSISTANT UNIT FORESTER, has not filled at pharmacy Best possible ASSISTANT UNIT FORESTER medication list after pharmacy review: Prior to [...] performed and electronically signed by Puja Whitman, [employer] 2017 15:31 Electronically signed by: Ta Ronquillo [facility] 11/02/2017 15:40 Olegario Keen MD - 11/02/2017 7:[address] [facility] [place] HOSPITALIST PROGRESS NOTE Patient: Ara Tilley : 1945: Age: 72 y.o. MedRec: [id number] Admission date: 11/01/2017 Hospital day # : [...] Procedure Component Value Units Date/Time Culture, Blood [[id number]] Collected: 11/02/1723 Order Status: Sent Lab Status: In process Updated: 11/02/1732 Specimen: Blood from Peripheral Blood Culture, Blood [[id number]] Collected: 11/02/1718 Order Status: Sent Lab Status: In process Updated: 11/02/1732 Specimen: Blood from Peripheral Blood Culture, MRSA [[id number]] Collected: 11/01/172145 Order Status: Sent Lab Status: [...] 0.9% Intravenous Continuous Olegario Peng 11/02/2017 7:38 [facility] documented in this e ncounter Plan [...] | | | | than 15 ml/min ([facility]) | | | | | | Type 2 DM with CKD | | | | | | stage 5 and | | | | | | hypertension ([facility]) | | | | | | Acute hemodialysis | | | | | | encounter ([facility]) | | + + +--------+ + [...] PERMACATH | | PST | ([facility]) | | + +--------+ + + [...] [address] | [place] | [phone] | | [facility] | | [address] | | | - LABORATORY | | [...] [address] | [place] | [phone] | | [facility] | | [address] | | | - LABORATORY | | [...] [address] | [place] | [phone] | | [facility] | | [address] | | | - LABORATORY | | [...] (H) | 7 - 18 mg/dL | [facility] | | | | | | [facility] | | | | | | MEDICAL | | | | | | CENTER - | | | | | | LABORATORY | | + + + + + + | Creatinine | 2.99 (H) | 0.60 - 1.30 | [facility] | | | | | mg/dL | [facility] | | | | | | MEDICAL | | | | | | CENTER - | | | | | | LABORATORY | | + + + + + + | eGFR if not | 15 (L)Comment: | >=60 | [facility] | | | | GLOMERULAR FILTRATION | mL/min/1.73m2 | [facility] | | | [facility]OTT[facility] | RATE,ESTIMATED | | MEDICAL | | | | mL/min/1.61b8Oxmo than | | CENTER - | | [...] | [facility] | [address] | [place] | [phone] | | [facility] | | [address] | | | - LABORATORY | | [...] + | [facility] | [address] | [place] | [phone] | | [facility] | | [address] | | | - LABORATORY | | [...] | | POC | | | [facility] | | | | | | [...] [address] | [place] | [phone] | | [facility] | | [address] | | | - LABORATORY | | [...] Dictated and Signed by: | | | tIz Mdasen MD Electronically signed: 11/08/2017 2:14 PM | [...] 24hr = 500 | mg/24hr | [facility] | | | | mg/24hrs | | [...] Urine | appended report. These | | [facility] | | | | results have been [...] [address] | [place] | [phone] | | [facility] | | [address] | | | - LABORATORY | | [...] | | Urine | | | [facility] | | | | | | MEDICAL | | | | | | CENTER - | | | | | | LABORATORY | | + +---------+ + + + | Creatinine, | 500 (L) | 600 - 1,800 | [facility] | | | Urine | | mg/24hrs | [facility] | | | (mg/24hr) | | [...] [address] | [place] | [phone] | | [facility] | | [address] | | | - LABORATORY | | [...] [address] | [place] | [phone] | | [facility] | | [address] | | | - LABORATORY | | [...] | | | Morphology | | | [facility] | | | [...] + | [facility] | [address] | [place] | [phone] | | [facility] | | [address] | | | - LABORATORY | | [...] mL/min/1.73m2 | [facility] | | | SCOTTISH | RATE,ESTIMATED | | MEDICAL | | | | mL/min/1.17c3Crcn than | | CENTER - | | [...] | | ine Ratio | | | [facility] | | | | [...] ST. | [address] | [place], [place] | [phone] | | [facility] | | [address] | | | - LABORATORY | | [...] [address] | [place] | [phone] | | [facility] | | [address] | | | - LABORATORY | | [...] [address] | [place] | [phone] | | [facility] | | [address] | | | - LABORATORY | | [...] + | [facility] | [address] | [place] | [phone] | | [facility] | | [address] | | | - LABORATORY | | [...] [address] | [place] | [phone] | | [facility] | | [address] | | | - LABORATORY | | [...] [address] | [place] | [phone] | | [facility] | | [address] | | | - LABORATORY | | [...] + | [facility] | [address] | [place] | [phone] | | [facility] | | [address] | | | - LABORATORY | | [...] [address] | [place] | [phone] | | [facility] | | [address] | | | - LABORATORY | | [...] [address] | [place] | [phone] | | [facility] | | [address] | | | - LABORATORY | | [...] 2.24 (H) | 0.60 - 1.30 | [facility] | | | | | mg/dL | [facility] | | | | | | MEDICAL | | | | | | CENTER - | | | | | | LABORATORY | | + + + + + + | eGFR if not | 22 (L)Comment: | >=60 | [facility] | | | | GLOMERULAR FILTRATION | mL/min/1.73m2 | [facility] | | | SCOTTISH | RATE,ESTIMATED | | MEDICAL | | | | mL/min/1.04l1Apnw than | | CENTER - | | [...] + | [facility] | [address] | [place] | [phone] | | [facility] | | [address] | | | - LABORATORY | | | | + + + + + POC Glucose (11/06/2017 9:32 PM PST) + +---------+ + + + | Component | Value | Ref Range | Performed | Pathologist | | | | | At | Signature | + +---------+ + + + | Glucose, | 161 (H) | 70 - 109 mg/dL | [facility] | | | POC | | | [...] [address] | [place] | [phone] | | [facility] | | [address] | | | - LABORATORY | | | | + + + + + POC Glucose (11/06/2017 4:47 PM PST) + +-------+ + + + | Component | Value | Ref Range | Performed | Pathologist | | | | | At | Signature | + +-------+ + + + | Glucose, | 104 | 70 - 109 mg/dL | [facility] | [address] | [place], [place] | [phone] | | [facility] | | [address] | | | - LABORATORY | | [...] + | [facility] | [address] | [place] | [phone] | | [facility] | | [address] | | | - LABORATORY | | [...] auto diff, rare band seen, <10% | [facility] | | | [facility] | | | MEDICAL CENTER | | | - LABORATORY | + + + + + + + + | Performing | Address | City/State/Zipcode | Phone Number | | Organization | | | | + + + + + | [facility] | [address] | [place] | [phone] | | [facility] | | [address] | | | - LABORATORY | | [...] [address] | [place] | [phone] | | [facility] | | [address] | | | - LABORATORY | | [...] [address] | [place] | [phone] | | [facility] | | [address] | | | - LABORATORY | | [...] [address] | [place] | [phone] | | [facility] | | [address] | | | - LABORATORY | | [...] 2.40 (H) | 0.60 - 1.30 | [facility] | | | | | mg/dL | [facility] | | | | | | MEDICAL | | | | | | CENTER - | | | | | | LABORATORY | | + + + + + + | eGFR if not | 20 (L)Comment: | >=60 | [facility] | | | | GLOMERULAR FILTRATION | mL/min/1.73m2 | [facility] | | | SCOTTISH | RATE,ESTIMATED | | MEDICAL | | | | mL/min/1.93s6Mvki than | | CENTER - | | [...] + | [facility] | [address] | [place] | [phone] | | [facility] | | [address] | | | - LABORATORY | | [...] ST. | [address] | [place], [place] | [phone] | | [facility] | | [address] | | | - LABORATORY | | [...] + | [facility] | [address] | [place] | [phone] | | [facility] | | [address] | | | - LABORATORY | | [...] | [address] | [place] | [phone] | | [facility] | | [address] | | | - LABORATORY | | [...] Demographics Patient Name ANDRES | | | [facility] Room Number 307 EMILE | | | Patient Number [id number] Date of Study | | | 11/05/2017 Visit Number [id number] | | | Referring Physician AUDI ANDRADE Number Date of | | | 1945 Manager Delivery Jasbir Gatica | | | Age 72 year(s) Interpreting | | | GENIE WARREN | | | Med Surg Nurse CHAYO | | | SHERRIE RADFORD, | | | | | | Gender Female 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 | | |Tricuspid Valve | | |Lcfl-hy-bpcxqidy tricuspid regurgitation suggestive of a mildly elevated [...] Volume: 60.67 ml | | | EF Vdwowxiro06% | | | | | | Left [...] | | (TTE) Demographics Patient Name ANDRES BAUTISTANNA Room Number 307 | | EMILE Patient Number [id number] Date of Study 11/05/2017 Visit Number | | [id number] Referring Physician AUDI ANDRADE | | Number Date of 1945 Manager Delivery Jasbir Gatica Age | | 72 year(s) Interpreting GENIE WARREN | | Med Surg Nurse CHAYO | | SHERRIE RADFORD MD Gender [...] aortic valve cusps | | without reducedexcursion.Tricuspid CovbqHifb-rb-rrbzjmbm tricuspid regurgitation | | suggestive of a [...] LA Volume: 60.67 ml | | EF Mxmgllxxo39% Left Ventricle Diastolic Dimension: 4.77 | | [...] reduced | |excursion. | |Tricuspid Valve | |Ostm-cp-uelxylzt tricuspid regurgitation suggestive of a mildly elevated [...] LA Volume: 60.67 ml | | EF Iyrugbsuf84% | | | | Left Ventricle | [...] + | [facility] | [address] | [place] | [phone] | | [facility] | | [address] | | | - LABORATORY | | [...] + | [facility] | [address] | [place] | [phone] | | [facility] | | [address] | | | - LABORATORY | | | | + + + + + Phosphorus (11/05/2017 6:12 AM PST) + +---------+ + + + | Component | Value | Ref Range | Performed | Pathologist | | | | | At | Signature | + +---------+ + + + | Phosphorus | 2.3 (L) | 2.5 - 4.6 mg/dL | [facility] | | | | | | STM[facility]ela [...] [address] | [place] | [phone] | | [facility] | | [address] | | | - LABORATORY | | [...] [address] | [place] | [phone] | | [facility] | | [address] | | | - LABORATORY | | [...] | 0.10 | 0.00 - 0.10 | [facility] [...] | + + + + + | [facility] | [address] | [place] | [phone] | | [facility] | | [address] | | | - LABORATORY | | [...] not | 26 (L)Comment: | >=60 | [facility] | | | | GLOMERULAR FILTRATION | mL/min/1.73m2 | [facility] | | | SCOTTISH | RATE,ESTIMATED | | MEDICAL | | | | mL/min/1.14f1Mhwy than | | CENTER - | | [...] | | ine Ratio | | | [facility] | | | | | | [...] [address] | [place] | [phone] | | [facility] | | [address] | | | - LABORATORY | | [...] [address] | [place] | [phone] | | [facility] | | [address] | | | - LABORATORY | | [...] + | [facility] | [address] | [place] | [phone] | | [facility] | | [address] | | | - LABORATORY | | [...] [address] | [place] | [phone] | | [facility] | | [address] | | | - LABORATORY | | [...] [address] | [place] | [phone] | | [facility] | | [address] | | | - LABORATORY | | [...] | [facility] | [address] | [place] | [phone] | | [facility] | | [address] | | | - LABORATORY | | | | + + + + + C-Reactive Protein (11/04/2017 4:19 AM PST) + + + + + + | Component | Value | Ref Range | Performed | Pathologist | | | | | At | Signature | + + + + + + | CRP | 253.22 (H) | <8.00 mg/L | [facility] | | | | | [...] + | [facility] | [address] | [place] | [phone] | | [facility] | | [address] | | | - LABORATORY | | | | + + + + + Phosphorus (11/04/2017 4:19 AM PST) + +-------+ + + + | Component | Value | Ref Range | Performed | Pathologist | | | | | At | Signature | + +-------+ + + + | Phosphorus | 2.9 | 2.5 - 4.6 mg/dL | [facility] [...] [address] | [place] | [phone] | | [facility] | | [address] | | | - LABORATORY | | [...] + | [facility] | [address] | [place] | [phone] | | [facility] | | [address] | | | - LABORATORY | | [...] [address] | [place] | [phone] | | [facility] | | [address] | | | - LABORATORY | | [...] mL/min/1.73m2 | [facility] | | | SCOTTISH | RATE,ESTIMATED | | MEDICAL | | | | mL/min/1.90y2Ltks than | | CENTER - | | [...] [address] | [place] | [phone] | | [facility] | | [address] | | | - LABORATORY | | [...] + + | [facility] | [address] | [place] | [phone] | | [facility] | | [address] | | | - LABORATORY | | [...] | [facility] | [address] | [place] | [phone] | | [facility] | | [address] | | | - LABORATORY | | [...] + + | Performing | Address | City/State/[facility] | Phone Number | | Organization | | | | + + + + + | [facility] | [address] | [place] | [phone] | | [facility] | | [address] | | | - LABORATORY | | [...] [address] | [place] | [phone] | | [facility] | | [address] | | | - LABORATORY | | [...] [address] | [place] | [phone] | | [facility] | | [address] | | | - LABORATORY | | [...] + | [facility] | [address] | [place] | [phone] | | [facility] | | [address] | | | - LABORATORY | | [...] [address] | [place] | [phone] | | [facility] | | [address] | | | - LABORATORY | | [...] + | [facility] | [address] | [place] | [phone] | | [facility] | | [address] | | | - LABORATORY | | [...] reformats. | | | | CLINICAL INFORMATION: Carroll DRISCOLL | | | | COMPARISON: CT chest [...] + | [facility] | [address] | [place] | [phone] | | [facility] | | [address] | | | - LABORATORY | | [...] + | [facility] | [address] | [place] | [phone] | | [facility] | | [address] | | | - LABORATORY | | [...] + | [facility] | [address] | [place] | [phone] | | [facility] | | [address] | | | - LABORATORY | | [...] [address] | [place] | [phone] | | [facility] | | [address] | | | - LABORATORY | | [...] + + | Performed at: 01 - [facility] [address], | REFERENCE LAB | | [place], [place] [id number] Residency Coordinator: Ernie Lee MD, Phone: | [facility] | | [phone] | | + + + + + + + + | Performing | Address | City/State/Zipcode | Phone Number | | Organization | | | | + + + + + | REFERENCE LAB | [address] [facility] [address] [facility] [address] | [place] [address] | [phone] | | [facility] | [address] [...] [address] | [place] | [phone] | | [facility] | | [address] | | | - LABORATORY | | [...] [address] | [place] | [phone] | | [facility] | | [address] | | | - LABORATORY | | [...] [facility] | | | | | | [facility] | | | | | | MEDICAL | | | | | | CENTER - | | | | | | LABORATORY | | + + + + + + | RBC | 2.97 (L) | 3.70 - 5.20 | [facility] | | | | | M/uL | [facility] | | | | | | MEDICAL [...] + | [facility] | [address] | [place] | [phone] | | [facility] | | [address] | | | - LABORATORY | | [...] test | | | | | | ([id number]). | | | | + + + + + + + + | Specimen | + + | Blood | + + + + + | Narrative | Performed At | + + + | Performed at: 01 - [facility] [place] [address], | REFERENCE LAB | | [place], [place] [id number] Residency Coordinator: Ernie Lee MD, Phone: | [facility] | | [phone] | | + + + + + + + + | Performing | Address | City/State/Zipcode | Phone Number | | Organization | | | | + + + + + | REFERENCE LAB | [address] | [place] [address] | [phone] | | [facility] | Drive [...] mL/min/1.73m2 | [facility] | | | SCOTTISH | RATE,ESTIMATED | | MEDICAL | | | | mL/min/1.98t9Gsdn than | | CENTER - | | [...] [address] | [place] | [phone] | | [facility] | | [address] | | | - LABORATORY | | [...] [address] | [place] | [phone] | | [facility] | | [address] | | | - LABORATORY | | [...] + | [facility] | [address] | [place] | [phone] | | [facility] | | [address] | | | - LABORATORY | | [...] [address] | [place] | [phone] | | [facility] | | [address] | | | - LABORATORY | | [...] + | [facility] | [address] | [place] | [phone] | | [facility] | | [address] | | | - LABORATORY | | [...] [address] | [place] | [phone] | | [facility] | | [address] | | | - LABORATORY | | [...] [address] | [place] | [phone] | | [facility] | | [address] | | | - LABORATORY | | [...] [address] | [place] | [phone] | | [facility] | | [address] | | | - LABORATORY | | [...] | | | POC | | | [facility] | | | | | | MEDICAL [...] + | [facility] | [address] | [place] | [phone] | | [facility] | | [address] | | | - LABORATORY | | [...] [address] | [place] | [phone] | | [facility] | | [address] | | | - LABORATORY | | [...] [address] | [place] | [phone] | | [facility] | | [address] | | | - LABORATORY | | [...] [address] | [place] | [phone] | | [facility] | | [address] | | | - LABORATORY | | | | + + + + + POC Glucose (11/02/2017 10:34 AM PST) + +-------+ + + + | Component | Value | Ref Range | Performed | Pathologist | | | | | At | Signature | + +-------+ + + + | Glucose, | 74 | 70 - 109 mg/dL | [facility] [...] [address] | [place] | [phone] | | [facility] | | [address] | | | - LABORATORY | | [...] [address] | [place] | [phone] | | [facility] | | [address] | | | - LABORATORY | | [...] [address] | [place] | [phone] | | [facility] | | [address] | | | - LABORATORY | | [...] + | [facility] | [address] | [place] | [phone] | | [facility] | | [address] | | | - LABORATORY | | [...] [address] | [place] | [phone] | | [facility] | | [address] | | | - LABORATORY | | | | + + + + + CBC with Differential (11/02/2017 7:41 AM PST) + + + + + + | Component | Value | Ref Range | Performed | Pathologist | | | | | At | Signature | + + + + + + | WBC | 8.8 | 4.0 - 11.0 K/uL | [facility] [...] + | [facility] | [address] | [place] | [phone] | | [facility] | | [address] | | | - LABORATORY | | [...] [address] | [place] | [phone] | | [facility] | | [address] | | | - LABORATORY | | [...] + | [facility] | [address] | [place] | [phone] | | [facility] | | [address] | | | - LABORATORY | | [...] mL/min/1.73m2 | [facility] | | | SCOTTISH | RATE,ESTIMATED | | MEDICAL | | | | mL/min/1.61i3Syiy than | | CENTER - | | [...] + | [facility] | [address] | [place], [place] | [phone] | | [facility] | | [address] | | | - LABORATORY | | [...] | | | Escherichia coli | | [facility] | | | [...] [address] | [place] | [phone] | | [facility] | | [address] | | | - LABORATORY | | [...] | | | Yellow, Straw | [facility] | | | | [...] - 1.030 | [facility] | | | [facility] | | | [facility] | | [...] [address] | [place] | [phone] | | [facility] | | [address] | | | - LABORATORY | | [...] | | | | | | [employer] | | | | | [...] + + | Performing | Address | City/State/[facility] | Phone Number | | Organization | | | | + + + + + | [facility] | [address] | [place] | [phone] | | [facility] | | [address] | | | - LABORATORY | | [...] [address] | [place] | [phone] | | [facility] | | [address] | | | - LABORATORY | | [...] [address] | [place] | [phone] | | [facility] | | [address] | | | - LABORATORY | | [...] [address] | [place] | [phone] | | [facility] | | [address] | | | - LABORATORY | | [...] | [facility] | [address] | [place] | [phone] | | [facility] | | [address] | | | - LABORATORY | | [...] ST. | [address] | [place] | [phone] | | [facility] | | [address] | | | - LABORATORY | | [...] + | [facility] | [address] | [place] | [phone] | | [facility] | | [address] | | | - LABORATORY | | [...] | third generation TSH | uIU/mL | [facility] | | | | test. | [...] [address] | [place] | [phone] | | [facility] | | [address] | | | - LABORATORY | | [...] | | | | | | [employer] | | | | | [...] + + | Performing | Address | City/State/[facility] | Phone Number | | Organization | | | | + + + + + | [facility] | [address] | [place] | [phone] | | [facility] | | [address] | | | - LABORATORY | | [...] At | + + + | | [facility] | | | [facility] | | | [facility] | | | - LABORATORY | [...] [address] | [place] | [phone] | | [facility] | | [address] | | | - LABORATORY | | | | + + + + + Magnesium (11/02/2017 12:19 AM PST) + +-------+ + + + | Component | Value | Ref Range | Performed | Pathologist | | | | | At | Signature | + +-------+ + + + | Magnesium | 2.3 | 1.8 - 2.5 mg/dL | [facility] [...] [address] | [place] | [phone] | | [facility] | | [address] | | | - LABORATORY | | [...] 3.76 (H) | 0.60 - 1.30 | [facility] [...] mL/min/1.73m2 | [facility] | | | [place]OTTISH | RATE,ESTIMATED | | MEDICAL | | | | mL/min/1.00q7Dbjp than | | CENTER - | | [...] [address] | [place] | [phone] | | [facility] | | [address] | | | - LABORATORY | | [...] [address] | [place] | [phone] | | [facility] | | [address] | | | - LABORATORY | | [...] [address] | [place] | [phone] | | [facility] | | [address] | | | - LABORATORY | | [...] | chromogenic agar method | | [facility] | | | [...] [address] | [place] | [phone] | | [facility] | | [address] | | | - LABORATORY | | [...] for comparison only - no result from [facility]. | [facility] | + + + [...] for comparison only - no result from [facility]. | [facility] | + + + [...] for comparison only - no result from [facility]. | [facility] | + + + [...] + | Diagnosis | + + | Hypoglycemia Hypoglycemia, unspecified | + + | Hypothermia, initial encounter | + + | CKD (chronic kidney disease) stage 5, GFR less than 15 ml/min ([facility]) Chronic kidney | | disease, Stage V | + + | Essential hypertension Unspecified essential hypertension | + + | Sepsis, due to unspecified organism | + + | Uremia Renal failure, unspecified | + + | Controlled type 2 diabetes mellitus with stage 5 chronic kidney disease not on chronic | | dialysis, with long-term current use of insulin ([facility]) | + + | End stage renal disease (HCC) End stage renal disease | + + | Type 2 DM with CKD stage 5 and hypertension (HCC) | + + | Severe protein-calorie malnutrition (HCC) Other severe protein-calorie malnutrition | + + | Anemia in chronic kidney disease, on chronic dialysis (HCC) | + + | Streptococcal bacteremia Bacteremia | + + | Acute hemodialysis encounter (HCC) Encounter for extracorporeal dialysis | + + | Elevated hemoglobin A1c Other abnormal blood chemistry | + + | DM (diabetes mellitus), type 2 (HCC) Type II or unspecified type diabetes mellitus | | without mention of complication, not stated as uncontrolled | + + | Decreased glomerular filtration [...] Shortness of Breath, | | | Starting Wed11/02/17 at 2043, RT | | | will administer., | | + +---+ | | | + +---+ + +-------+ +-------+---+---+ | amLODIPine (NORVASC) tablet 10 | Given | 11/03/19 | 10 mg | | | | mg 10 mg, Oral, DAILY, First | | 18 9:25 | | | | | dose on Wed11/02/17 at 0900, Hold | | AM PST | | | | | for sbp<100, | | | | | | + +-------+ +-------+---+---+ +-------+ +-------+---+---+ | Given | 11/02/19 | 10 mg | | | | | 18 9:08 | | | | | | AM PST | | | | +-------+ +-------+---+---+ +---+---+ | | | +---+---+ + +-------+ +--------+---+---+ | amLODIPine (NORVASC) tablet 2.5 | Given | 11/05/19 | 2.5 mg | | | | mg 2.5 mg, Oral, DAILY, First | | 18 8:09 | | | | | dose (after last modification) on | | AM PST | | | | | Dian 11/04/17 at 0900, Hold for | | | | | | | sbp<100, | | | | | | + +-------+ +--------+---+---+ +-------+ +--------+---+---+ | Given | 11/04/19 | 2.5 mg | | | | | 18 9:22 | | | | | | AM PST | | | | +-------+ +--------+---+---+ +---+---+ | | | +---+---+ + +-------+ +--------+---+---+ | aspirin EC tablet 325 mg 325 | Given | 11/03/19 | 325 mg | | | | mg, Oral, DAILY, First dose on | | 18 9:26 | | | | | 11/02/17 at 0900, Do not cut | | AM PST | | | | | or crush., | | | | | | + +-------+ +--------+---+---+ +-------+ +--------+---+---+ | Given | 11/02/19 | 325 mg | | | | | 18 9:09 | | | | | | AM [...] | | +---+---+ + +---------+ +--------+-------+---+ | azithromycin (ZITHROMAX) 500 mg | New Bag | 11/04/19 | 500 mg | 255 | | | in sodium chloride 0.9% 250 mL | | 18 9:56 | | mL/hr | | | IVPB 500 mg, Intravenous, | | AM PST | | | | | Administer over 1 Hours, DAILY, | | | | | | | First dose on Wed11/03/17 at | | | | | | | 0900, Keep in refrigerator., | | | | | | | Indications: Community Acquired | | | | | | | Pneumonia | | | | | | + +---------+ +--------+-------+---+ +---------+ +--------+-------+---+ | New Bag | 11/03/19 | 500 mg | 255 | | | | 18 10:48 | | mL/hr | | | | AM PST | | | | +---------+ +--------+-------+---+ + +---+ | | | [...] +---+---+ +---+---+ | | | +---+---+ + +---------+ +-----+-------+---+ | cefTRIAXone (ROCEPHIN) 2 g in | New Bag | 11/04/19 | 2 g | 100 | | | sodium chloride 0.9% 50 mL IVPB | | 18 9:07 | | mL/hr | | | 2 g, Intravenous, Administer over | | AM PST | | | | | 30 Minutes, EVERY 24 HOURS | | | | | | | (Daily), First dose on Wed | | | | | | | 11/02/17 at 1615, Activate system | | | | | | | and mix before use., Indications: | | | | | | | UTI - LOWER | | | | | | + +---------+ +-----+-------+---+ +---------+ +-----+-------+---+ | New Bag | 11/03/19 | 2 g | 100 | | | | 18 9:20 | | mL/hr | | | | AM PST | | | | +---------+ +-----+-------+---+ | New Bag | 11/02/19 | 2 g | 100 | | | | 18 4:23 | | mL/hr | | | | PM PST | | | | +---------+ +-----+-------+---+ +---+---+ | | | +---+---+ + +---------+ +---+ +---+ | dextrose 10% (D10W) 1,000 mL | New Bag | 11/02/19 | | 50 mL/hr | | | with sodium chloride 150 mEq | | 18 10:47 | | | | | infusion at 50 mL/hr, | | AM PST | | | | | Intravenous, CONTINUOUS, Starting | | | | | | | 11/02/17 at 1045, Please run | | | | | | | continuously for now., | | | | | | + +---------+ +---+ +---+ + +---+ | | | + +---+ [...] First dose on Wed | | PM PST | | | [...] | DULoxetine (CYMBALTA) DR | Given | 11/08/19 | 30 mg | | | | capsule 30 mg 30 mg, Oral, | | 18 3:14 | | | | | DAILY, First dose on Wed11/02/17 | | PM PST | | | | | at 0900, Do not open capsule., | | | | | | + +-------+ +-------+---+---+ +-------+ +-------+---+---+ | Given | 11/07/19 | 30 mg | | | | | 18 8:38 | | | | | | AM PST | | | | +-------+ +-------+---+---+ | Given | 11/06/19 | 30 mg | | | | | 18 9:04 | | | | | | AM [...] furosemide (LASIX) injection 80 | Given | 11/02/19 | 80 mg | | | | mg 80 mg, Intravenous, ONCE, | | 18 9:08 | | | | | 11/02/17 at 2115, For 1 dose | | PM PST | | | | + +-------+ +-------+---+---+ +---+---+ | | | +---+---+ + +-------+ +-------+---+---+ | furosemide (LASIX) injection 80 | Given | 11/05/19 | 80 mg | | | | mg 80 mg, Intravenous, DAILY, | | 18 8:10 | | | | | First dose on Wed11/03/17 at 0900 | | AM PST | | | | + +-------+ +-------+---+---+ +-------+ +-------+---+---+ | Given | 11/04/19 | 80 mg | | | | | 18 9:14 | | | | | | AM PST | | | | +-------+ +-------+---+---+ | Given | 11/03/19 | 80 mg | | | | | 18 9:22 | | | | | | AM PST | | | | +-------+ +-------+---+---+ +---+---+ | | | +---+---+ + +-------+ +-------+---+---+ | furosemide (LASIX) tablet 80 mg | Given | 11/02/19 | 80 mg | | | | 80 mg, Oral, DAILY, First dose | | 18 9:09 | | | | | on 11/02/17 at 0900 | | AM PST | | | [...] | | | DAILY, First dose on 11/01/17 | | PM PST | | | [...] | +---+---+ + +-------+ +--------+---+---+ | heparin (dialysis) 1,000 | Given | 11/04/19 | 1,500 | | | | units/mL injection 1,500 Units | | 18 3:53 | Units | | | | 1,500 Units, Intravenous, | | PM PST | | | | | DIALYSIS - ONCE, [facility] 11/04/17 at | | | | | | | 1445, For 1 dose | | | | | | + +-------+ +--------+---+---+ +---+---+ | | | +---+---+ + +-------+ +--------+---+---+ | heparin 1,000 units/mL | Given | 11/04/19 | 2,800 | | | | injection 1,500-6,000 Units | | 18 9:33 | Units | | | | 1,500-6,000 Units, Intracatheter, | | PM PST | | | | | PRN, catheter care, Starting Wed | | | | | | | 11/03/17 at 1434, Instill in | | | | | | | catheter, after each dialysis. | | | | | | | Dispense quantity sufficient to | | | | | | | fill both lumens of catheter., | | | | | | | Dialysis | | | | | | + +-------+ +--------+---+---+ +-------+ + +---+---+ | Given | 11/04/19 | 2,800 | | | | | 18 5:10 | Units | | | | | AM PST | | | | +-------+ + +---+---+ | Given | 11/04/19 | 1,000 | | | | | 18 12:09 | Units/mL | | | | | AM PST | | | | +-------+ + +---+---+ +---+---+ | | | +---+---+ + +-------+ +--------+---+---+ | heparin 1,000 units/mL | Given | 11/06/19 | 5,000 | | | | injection 1,500-6,000 Units | | 18 1:16 | Units | | | | 1,500-6,000 Units, Intracatheter, | | PM PST | | | | | PRN, catheter care, Starting Sat | | | | | | | 11/06/17 at 0714, Instill in | | | | | | | catheter, after each dialysis. | | | | | | | Dispense quantity sufficient to | | | | | | | fill both lumens of catheter. DC | | | | | | | ORDER AFTER DIALYSIS, Dialysis | | | | | | [...] | heparin 5,000 units/mL | Given | 11/02/19 | 5,000 | | Abdomen- | | injection 5,000 Units 5,000 | | 18 9:09 | Units | | RLQ | | Units, Subcutaneous, EVERY 12 | | AM PST | | | | | HOURS (2 times per day), First | | | | | | | dose on 11/01/17 at 2200 | | | | | | + +-------+ +--------+---+ + +-------+ +--------+---+ + | Given | 11/01/19 | 5,000 | | Abdomen- | | | 18 10:31 | Units | | LUQ | | | PM PST | | | | +-------+ +--------+---+ + +---+---+ | | | +---+---+ + +---------+ + + +---+ | heparin in half-normal saline | New Bag | 11/04/19 | 500 | 10 mL/hr | | | 50 units/mL infusion 500 | | 18 3:49 | Units/hr | | | | Units/hr (10 mL/hr), at 10 mL/hr, | | PM PST | | | | | Intravenous, TITRATED, Starting | | | | | | | 11/03/17 at 1545, After a 1000 | | | | | | | unit bolus, while on NxStage., | | | | | | | Dialysis | | | | | | + +---------+ + + +---+ +---------+ + + +---+ | New Bag | 11/04/19 | 500 | 10 mL/hr | | | | 18 12:12 | Units/hr | | | | | AM PST | | | | +---------+ + + +---+ +---+---+ | | | +---+---+ + +---------+ + +---------+---+ | heparin in half-normal saline | New Bag | 11/06/19 | 200 | 4 mL/hr | | | 50 units/mL infusion 200 | | 18 7:57 | Units/hr | | | | Units/hr (4 mL/hr), at 4 mL/hr, | | AM PST | | | | | Intravenous, CONTINUOUS, Starting | | | | | | | 11/06/17 at 0730, DC ORDER | | | | | | | AFTER DIALYSIS, Dialysis | | | | | | [...] | | | | | | use End[place]ott 10/325 if ordered. If | | | [...] | | +---+---+ + +-------+ +---------+---+---+ | HYDROcodone-acetaminophen | Given | 11/08/19 | 2 | | | | (NORCO) 5-325 mg per tablet 1-2 | | 18 3:11 | tablets | | | | tablet 1-2 tablet, Oral, EVERY 4 | | PM PST | | | | | HOURS PRN, Pain, Starting Mon | | | | | | | 11/01/17 at 2144, If ineffective | | | | | | | use Endicott 10/325 if ordered. If | | | | | | | not tolerated, use Percocet then | | | | | | | Oxycodone if ordered., | | | | | | + +-------+ +---------+---+---+ +-------+ +---------+---+---+ | Given | 11/06/19 | 2 | | | | | 18 4:53 | tablets | | | | | PM PST | | | | +-------+ +---------+---+---+ | Given | 11/05/19 | 2 | | | | | 18 1:34 | tablets | | | | | AM PST | | | | +-------+ +---------+---+---+ +---+---+ [...] | | | | | | | 11/03/17 at 2330, CORRECTION | | | | [...] | | | | | | | 7417-8967 Use NIGHT DOSE for | | | | | | | doses scheduled: HS, 3AM, | | | | | | | Nighttime 4230-6375, | | | | | | + [...] scheduled: AC, | | | NPO, Daytime 8929-1246 Use NIGHT | | | DOSE for doses scheduled: | | | HS, 3AM, Nighttime 3874-2425, | | + +---+ | | | [...] | labetalol (NORMODYNE) tablet | Given | 11/03/19 | 200 mg | | | | 200 mg 200 mg, Oral, 2 TIMES | | 18 9:26 | | | | | DAILY, First dose on Wed11/02/17 | | AM PST | | | | | at 0900, Hold for sbp<100, hr<60, | | | | | | | | | | | | | + +-------+ +--------+---+---+ +-------+ +--------+---+---+ | Given | 11/02/19 | 200 mg | | | | | 18 9:09 | | | | | | AM PST | | | | +-------+ +--------+---+---+ +---+---+ | | | +---+---+ + +-------+ +------+---+---+ | labetalol (TRANDATE) 5 mg/mL | Given | 11/08/19 | 5 mg | | | | injection 5 mg 5 mg, | | 18 2:22 | | | | | Intravenous, EVERY 5 MIN PRN, For | | PM PST | | | | | SBP > 180, DBP > 100, Starting | | | | | | | 11/08/17 at 1403, Hold if HR < | | | | | | | 60. Maximum total dose 300mg. | | | | | | | Notify anesthesia if patient | | | | | | | requires more than 50mg., | | | | | | | Recovery/Phase I | | | | | | + +-------+ +------+---+---+ +-------+ +------+---+---+ | Given | 11/08/19 | 5 mg | | | | | 18 2:13 | | | | | | PM PST | | | | +-------+ +------+---+---+ | Given | 11/08/19 | 5 mg | | | | | 18 2:06 | | | | | | PM [...] (COZAAR) tablet 25 mg | Given | 11/02/19 | 25 mg | | | | 25 mg, Oral, DAILY, First dose | | 18 9:08 | | | | | on 11/02/17 at 0900, Hold for | | AM PST | | | | | sbp<100, | | | | | | + [...] (COZAAR) tablet 50 mg | Given | 11/09/19 | 50 mg | | | | 50 mg, Oral, ONCE, 11/09/17 | | 18 4:22 | | | | | at 1530, For 1 dose | | PM PST | | | | + +-------+ +-------+---+---+ + +---+ | | | [...] | + +---+ + +-------+ +------+---+---+ | morphine injection 2-6 mg 2-6 | Given | 11/02/19 | 2 mg | | | | mg, Intravenous, EVERY 2 HOURS | | 18 9:24 | | | | | PRN, Pain, Starting 11/01/17 | | AM PST | | | | | at 2144, Slow IV push, not faster | | | | | | | than 2 mg/minute. If ineffective | | | | | | | or not tolerated, use | | | | | | | hydromorphone IV if ordered., | | | | | | + +-------+ +------+---+---+ +---+---+ | | | +---+---+ + +-------+ +--------+---+---+ | olopatadine (PATANOL) 0.1% [...] | | | DAILY, First dose on [facility] 11/04/17 | | AM PST | | [...] | + +---+ + +-------+ +-------+---+---+ | sertraline (ZOLOFT) tablet 50 | Given | 11/09/19 | 50 mg | | | | mg 50 mg, Oral, DAILY, First | | 18 8:47 | | | | | dose on e 11/09/17 at 0900 | | AM PST | | | | + +-------+ +-------+---+---+ + +---+ | | | [...] | | | + +---+ + +---------+ +---+ +---+ | sodium chloride 0.9% (NS) | New Bag | 11/02/19 | | 75 mL/hr | | | infusion at 75 mL/hr, | | 18 5:51 | | | | | Intravenous, CONTINUOUS, Starting | | AM PST | | | | | 11/02/17 at 0545 | | | | | | + +---------+ +---+ +---+ +---+---+ | | | +---+---+ + +---------+ +---+---+---+ | sodium chloride 0.9% (NS) | New Bag | 11/08/19 | | | | | infusion at 10-100 mL/hr, | | 18 11:41 | | | | | Intravenous, CONTINUOUS, Starting | | AM PST | | | | | 11/08/17 at 1130, TKO. Use | | | | | | | this instead of LR if both are | | | | | | | ordered., Pre-op | | | | | | + +---------+ +---+---+---+ +---------+ +---+ +---+ | New Bag | 11/08/19 | | 50 mL/hr | | | | 18 11:04 | | | | | | AM PST | | | | +---------+ +---+ +---+ +---+---+ | | | +---+---+ documented in this encounter
--- OUTSIDE RECORDS SUMMARY | ~2019-07-27 | XMS | Encounter Summary ---
Demographics + + + | Address | [address] | | | [place] [address] | + + + | Home Phone [...] | [facility] | | | and [place] | + + + | Organization | [facility] | | | and [place] | + + + | Address | Unknown | + + + | Phone | Unavailable | + + + Support + + + + + | Name | Relationship | Address | Phone | + + + + + | India Tilley | ECON | [phone] | | | | | [place], [place] | | | | | [address] | | + + + + + | Yina La | ECON | Unknown | | + + + + + | Yina Peterson | ECON | Unknown | | + + + + + | Leatha Casillas | ECON | Unknown | | + + + + + Care Team Providers + +------+ + | Care Oyster Sorter Name | Role | Phone | + +------+ + PCP | Unavailable | + +------+ + Encounter Details +--------+ + + + + | Date | Type | Department | Care Team | Description | +--------+ + + + + | 03/02/ | Hospital | [facility] | [place], | | | 2007 | Encounter | MED CTR EMERGENCY | Venkatesh Esteban MD [address] | | | | | [place] [address] | [facility] | | | | | [place], [place] | [place] [address] | | | | | [address] | [phone] | | | | | [phone] | | | +--------+ + + + [...]
--- OUTSIDE RECORDS SUMMARY | ~2019-07-27 | XMS | Encounter Summary ---
Demographics + + + | Address | [address] | | | [place] [address] | + + + | Home Phone [...] | Author | [facility] | | | and [place] | + + + | Organization | [facility] | | | and [place] | + + + | Address | Unknown | + + + | Phone | Unavailable | + + + Support + + + + + | Name | Relationship | Address | Phone | + + + + + | India Tilley | ECON | [phone] | | | | | [place], [place] | | | | | [address] | | + + + + + | Yina La | ECON | Unknown | | + + + + + | Yina Peterson | ECON | Unknown | | + + + + + | Leatha Casillas | ECON | Unknown | | + + + + + Care Team Providers + +------+ + | Care Golf Coach Name | Role | Phone | + +------+ + PCP | Unavailable | + +------+ + Encounter Details +--------+ + + + + | Date | Type | Department | Care Team | Description | +--------+ + + + + | 11/08/ | [facility] | [facility] | Provider, | | | 2018 | Exam | MED CTR EXTERNAL | MD [address] | | | | | IMAGING | [address] | | | | | [phone] | [place] [address] | | +--------+ + + + + [...] this encounter Results XR Chest 2 VW (05/26/2006 4:50 PM PDT) + + | Specimen | + + | | + + + + + | Narrative | Performed At | + + + | External films for comparison only - no result from [place]. | [facility] | + + + + +---------+ + + | Performing | Address | City/State/Zipcode | Phone Number | | Organization | | | | + +---------+ + + | [facility] | | | | + +---------+ + + documented in this encounter Visit Diagnoses Not on filedocumented in this encounter"
--- OUTSIDE RECORDS SUMMARY | ~2019-07-27 | XMS | Encounter Summary ---
Demographics + + + | Address | [address] | | | [place] [address] | + + + | Home Phone [...] + | Author | [facility] | | | and [place] | + + + | Organization | [facility] | | | and [place] | + + + | Address | Unknown | + + + | Phone | Unavailable | + + + Support + + + + + | Name | Relationship | Address | Phone | + + + + + | nIdia Tilley | ECON | [phone] | | | | | [place], [place] | | | | | [address] | | + + + + + | Yina La | ECON | Unknown | | + + + + + | Yina Peterson | ECON | Unknown | | + + + + + | Leatha Casillas | ECON | Unknown | | + + + + + Care Team Providers + +------+ + | Care Homicide Squad Lieutenant Name | Role | Phone | + +------+ + PCP | Unavailable | + +------+ + Encounter Details +--------+ + + + + | Date | Type | Department | Care Team | Description | +--------+ + + + + | 10/22/ | Hospital | [facility] | Gopi Muñoz | Chronic kidney | | 2018 | Encounter | MED CTR ULTRASOUND | M, DO [address] | disease, stage V | | | | [address] [place] | [address] | ([facility]) | | | | [place], [place] | [place], [place] | | | | | [address] | [id number] | | | | | [phone] | | | | | | | Susan Pryor | | | | | | Jessie Technologist | | +--------+ + + + + [...] + +--------+ + + + | VAS UPPER EXTREMITY | Routin | 10/22/2017 | Chronic kidney | Results for this | | VEIN MAPPING | e | 3:59 PM | disease, stage V | procedure are in the | | BILATERAL | | PST | ([facility]) | results section. | + +--------+ + + + documented in this encounter Results VAS Upper Extremity Vein [...] | Chronic kidney disease, stage V (HCC) Chronic kidney disease, Stage V | + + documented in this encounter"
--- OUTSIDE RECORDS SUMMARY | ~2019-07-27 | XMS | Encounter Summary ---
Demographics + + + | Address | [address] | | | [place] [address] | + + + | Home Phone | | + + + | Preferred Language | Unknown | + + + | Marital Status | Single | + + + | Buddhism Affiliation | Unknown | + + + | Race | Unknown | + + + | Ethnic Group | Unknown | + + + Author + + + | Author | [facility] | | | and [place] | + + + | Organization | [facility] | | | and [place] | + + + | Address | Unknown | + + + | Phone | Unavailable | + + + Support + + + + + | Name | Relationship | Address | Phone | + + + + + | India Tilley | ECON | [phone] | | | | | [place], [place] | | | | | [address] | | + + + + + | Yina La | ECON | Unknown | | + + + + + | Yina Peterson | ECON | Unknown | | + + + + + | Leatha Casillas | ECON | Unknown | | + + + + + Care Team Providers + +------+ + | Care Concrete Floor Installer Name | Role | Phone | + +------+ + PCP | Unavailable | + +------+ + Encounter Details +--------+ + + + + | Date | Type | Department | Care Team | Description | +--------+ + + + + | 03/02/ | Hospital | [facility] | [place], | | | 2007 | Encounter | MED CTR EMERGENCY | Venkatesh Esteban MD [address] | | | | | [place] [address] | [facility] | | | | | [place], [place] | [place] [address] | | | | | [address] | [phone] | | | | | [phone] | | | +--------+ + + + [...]
--- OUTSIDE RECORDS SUMMARY | ~2019-07-27 | XMS | Encounter Summary ---
Demographics + + + | Address | [address] | | | [place] [address] | + + + | Home Phone [...] + | Author | [facility] | | | and [place] | + + + | Organization | [facility] | | | and [place] | + + + | Address | Unknown | + + + | Phone | Unavailable | + + + Support + + + + + | Name | Relationship | Address | Phone | + + + + + | India Tilley | ECON | [address] | | | | | [place], [place] | | | | | [address] | | + + + + + | Yina La | ECON | Unknown | | + + + + + | Yina Peterson | ECON | Unknown | | + + + + + | Leatha Casillas | ECON | Unknown | | + + + + + Care Team Providers + +------+ + | Care Outreach Consultant Name | Role | Phone | [...] + | 01/03/ | Telephone | [facility] | Santos Stephenson | Surgery Appointment | | 2018 | | SURGERY [address] | MD Kinga, FACS [address] | | | | | [address] [place], [place] | [address] [facility] | | | | | [address] | [place] [address] | | | | | [phone] | [phone] | | | | | | | [...]
--- OUTSIDE RECORDS SUMMARY | ~2019-07-27 | XMS | Encounter Summary ---
Demographics + + + | Address | [address] | | | [place] [address] | + + + | Home Phone [...] | Author | [facility] | | | and [place] | + + + | Organization | [facility] | | | and [place] | + + + | Address | Unknown | + + + | Phone | Unavailable | + + + Support + + + + + | Name | Relationship | Address | Phone | + + + + + | India Tilley | ECON | [address] | | | | | [place], [place] | | | | | [address] | | + + + + + | Yina La | ECON | Unknown | | + + + + + | Yina Peterson | ECON | Unknown | | + + + + + | Leatha Casillas | ECON | Unknown | | + + + + + Care Team Providers + +------+ + | Care Body Press Operator Name | Role | Phone | + +------+ + PCP | Unavailable | + +------+ + Encounter Details +--------+ + + + + | Date | Type | Department | Care Team | Description | +--------+ + + + + | 01/04/ | Hospital | [facility] | Santos Stephenson | Decreased glomerular | | 2018 | Encounter | MED CTR OR INTRA OP | MD Kinga, FACS [address] | filtration rate | | | | [address] | [facility] | (GFR) | | | | [place], [place] | [place] [address] | | | | | [address] | [phone] | | | | | [phone] | | | +--------+ + + + [...] what medicines and drugsyou take. This includes gsks-cox-eot nter medicines, herbs, supplements, alcohol or other [...] ke ep you safe. Date Last Reviewed: 08/13/201619992662-3166 [employer]. [address] [place] [address]. All righ ts reserved. This information is not intended as a substitute for professional medical care. Always follow your healthcare professional's instructions. [facility] POST-OP INSTRUCTIONS: Arterio-Venous Fistula 1. Keep [...] | | | | | PDT | ([facility]) (N18.5) | | + +--------+ + + [...] [address] | [place] | [phone] | | [facility] | | [address] | | | - [...] + | [facility] | [address] | [place] | [phone] | | [facility] | | [address] | | | - LABORATORY | | [...] [address] | [place] | [phone] | | [facility] | | [address] | | | - LABORATORY | | [...] + | [facility] | [address] | [place] | [phone] | | [facility] | | [address] | | | - LABORATORY | | [...] | mL/min/1.73m2 | NERISSA | | | CAM[facility]ODIAN | RATE,ESTIMATED | | MEDICAL | | | | mL/min/1.98h2Yxui than | | CENTER - | | [...] [address] | [place] | [phone] | | [facility] | | [address] | | | - LABORATORY | | [...]
--- OUTSIDE RECORDS SUMMARY | ~2019-07-27 | XMS | Encounter Summary ---
Demographics + + + | Address | [address] | | | [place] [address] | + + + | Home Phone | | + + + | Preferred Language | Unknown | + + + | Marital Status | Single | + + + | Anabaptist Affiliation | Unknown | + + + | Race | Unknown | + + + | Ethnic Group | Unknown | + + + Author + + + | Author | [facility] | | | and [place] | + + + | Organization | [facility] | | | and [place] | + + + | Address | Unknown | + + + | Phone | Unavailable | + + + Support + + + + + | Name | Relationship | Address | Phone | + + + + + | India Tilley | ECON | [address] | | | | | [place], [place] | | | | | [address] | | + + + + + | Yina La | ECON | Unknown | | + + + + + | Yina Peterson | ECON | Unknown | | + + + + + | Leatha Casillas | ECON | Unknown | | + + + + + Care Team Providers + +------+ + | Care Test Pilot Name | Role | Phone | + +------+ + | Dangelo Renato Barr DIPESH | PCP | | + +------+ + Encounter Details +--------+ + + + + | Date | Type | Department | Care Team | Description | +--------+ + + + + | 07/12/ | Telephone | [facility] | [facility] | | | 2019 | | CENTER INTRA OP | MD [address] | | | | | [address] | [place] | | | | | [place], [place] | [place] [address] | | | | | [address] | [phone] | | | | | [phone] | | | +--------+ + + + [...]
--- OUTSIDE RECORDS SUMMARY | ~2019-07-27 | XMS | Encounter Summary ---
Demographics + + + | Address | [address] | | | [place] [address] | + + + | Home Phone [...] + | Author | [facility] | | | and [place] | + + + | Organization | [facility] | | | and [place] | + + + | Address | Unknown | + + + | Phone | Unavailable | + + + Support + + + + + | Name | Relationship | Address | Phone | + + + + + | India Tilley | ECON | [address] | | | | | [place], [place] | | | | | [address] | | + + + + + | Yina La | ECON | Unknown | | + + + + + | Yina Peterson | ECON | Unknown | | + + + + + | Leatha Casillas | ECON | Unknown | | + + + + + Care Team Providers + +------+ + | Care Ultrasound Coordinator Name | Role | Phone | [...] Required | | deconditioni | DO [address] | | | | | | ng Anemia | [place], [place] | | | | | | of chronic | [address] | | | | | | renal | [place], [place] | | | | | | failure, | [address] | | | | | | stage 5 | Phone: | | | | | | ([facility]) | [phone] | | | | | | Closed | Fax: | | | | | | fracture of | [phone] | | | | | | right [...] | | | | | | | ([facility]) | | | +--------+--------+ + + + + Encounter Details +--------+ + + + + | Date | Type | Department | Care Team | Description | +--------+ + + + + | 12/04/ | Hospital | [facility] | Nick Mendoza MD | Closed fracture of | | 2019 - | Encounter | MED CTR SURGICAL | [address] | neck of right femur, | | | | [address] | [place] | initial encounter | | 12/09/ | | [place] [address] | [address] | ([facility]) (Primary Dx); | | 2019 | | [phone] | | Non-compliance; End | | | | | Scott Koroma MD | stage renal disease | | | | | [address] | ([facility]); Type 2 | | | | | [place], [place] | diabetes mellitus | | | | | [address] | with stage 4 chronic | | | | | | kidney disease, | | | | | | with long-term | | | | | | current use of | | | | | | insulin ([facility]); | | | | | | Closed fracture of | | | | | | right hip, initial | | | | | | encounter ([facility]); | | | | | | Type 2 DM with CKD | | | | | | stage 5 and | | | | | | hypertension ([facility]); | | | | | | Renal bone disease; | | | | | | Physical | | | | | | deconditioning; | | | | | | Anemia of chronic | | | | | | renal failure, stage | | | | | | 5 ([facility]); Closed | | | | | [...] signed by: Scott Koroma, 12/20/2018 12:05 [facility] by cSott Koroma MD at 05/2019 12:10 PM PDTdocumented in this encounter Discharge Instructions Instructions Gopi Muñoz DO - . Please keep your old HD appt. at [facility] for 12/12/2018. 2. Call our Office if you change your mind and wish to go to [facility] , for further R ehab. 3. [...] might be d ifferent from the original. [facility] [address] [place] [address] PROGRESS NOTE Pt. Name/Age/: Estefani Tilley 73 y.o. 1945 Med. Record Number: [id number] Date of admission: 12/04/2018 NEPHROLOGY HPI - [...] Lungs: Prolonged expiratory phase, with findings of Corona rales lower 1/4 both lungs. Abdomen: Soft, [...] HD tomorrow and assess for DC soon. [facility] Amol Green MD - 12/08/2018 3:29 [...] going to any Rehab. Ctr after DC. [facility] Scott Tadeo MD - 12/07/2018 8:56 [...] Hassan DO - 12/06/2018 5:33 PM PDT [facility] [address] [place] [address] PROGRESS NOTE Pt. Name/Age/: Estefani Tilley 73 y.o. 1945 Med. Record Number: [id number] Date of admission: 12/04/2018 NEPHROLOGY HPI - [...] Lungs: Prolonged expiratory phase, with findings of Corona rales lower 1/4 both lungs. Abdomen: Soft, [...] to go home when felt ap propriate [facility] Scott Tadeo MD - 12/06/2018 8:02 [...] PDT PHARMACY SERVICES: ADMISSION MEDICATION REVIEW Estefani iTlley is a 73 y.o. female admitted on 12/04/2018. Patient is somewhat a reliable historian. Location of Patient when reviewed: ED X Medical Floor Patient s prior to admit medication and over the counter (OTC) medications/herbal supplem ents list obtained from: X Verbal interview X Patient able to recall SOME Name, strength, and directions X Pharmacy list names: Mayco Johnson ([place]) X Outside Information Vaccines up to date? 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 Answered questions with head nods or patients stating that she was not taking a medication. Medication: Prior to Admission Sig: Patient taking differently TERMITE HELPER as: Atorvastatin 20 mg tablet Take 1 [...] idea what this medication was Best possible TERMITE HELPER medication list after pharmacy review: PT REPORTED [...] into the vein Three times a w [place]. Historical Provider, epoetin karthik (EPOGEN, PROCRIT) 10,000 [...] performed and electronically signed by Kerry Jordan, Switch Engineer 12/05/2018 14:45 Reviewed by Flora Watts, PharmD 12/05/2018 15:51 Scott Tadeo MD - 12/05/2018 7:41 AM PDT Patient feels better than yest Vitals: 12/05/18 0731 BP: 152/71 Pulse: 67 Resp: 16 Temp: 36.4 C (97.6 F) Intake/Output Summary (Last 24 hours) at 12/05/18 0789 Last data filed at 12/05/18 7399 Gross per 24 hour Intake 1115 ml [...] | | | | | | 5 ([facility]) Closed | | | | | [...] R?MRN: | | | | | | [id number] | | | [id number] | | | riteri | | | [...] | | | St. | | | [place] | | | y | | | [...] | | | [facility] | | [place] | | | 3 0 | | | [facility] | | | [facility] | | | [place] | | | y | | | [...] | | | St. | | | [place] | | | y H. | | [...] | | e of | | | [employer] [place] | | | | | | [place] [...] | | | St. | | | [place] | | | y H. 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 | | | [place] | | | y H. | | [...] | | e of | | | [place] [employer] [place] | | | | | | [place] [...] | | | [facility] | | | [place] | | | [place] | | | ID | | | [...] | | | [facility] | | | [place] | | | [place] | | | ID | | | [...] | | | [facility] | | | [place] | | | [place] | | | ID | | | [...] | | | [facility] | | | [place] | | | [place] | | | ID | | | [...] | | | [facility] | | | [place] | | | [place] | | | ID | | | [...] | | | [facility] | | | [place] | | | | | | [facility] [...] | | | [id number] | | | [id number] | | | 3131 | | | [...] + | [facility] | [address] | [place] | [phone] | | [facility] | | [address] | | | - LABORATORY | | [...] + | [facility] | [address] | [place] | [phone] | | [facility] | | [address] | | | - LABORATORY | | [...] [address] | [place] | [phone] | | [facility] | | [address] | | | - LABORATORY | | [...] + | [facility] | [address] | [place] | [phone] | | [facility] | | [address] | | | - LABORATORY | | [...] [address] | [place] | [phone] | | [facility] | | [address] | | | - LABORATORY | | [...] [address] | [place] | [phone] | | [facility] | | [address] | | | - LABORATORY | | [...] [address] | [place] | [phone] | | [facility] | | [address] | | | - LABORATORY | | [...] + | [facility] | [address] | [place] | [phone] | | [facility] | | [address] | | | - LABORATORY | | [...] [address] | [place] | [phone] | | [facility] | | [address] | | | - LABORATORY | | [...] [address] | [place] | [phone] | | [facility] | | [address] | | | - LABORATORY | | [...] + | [facility] | [address] | [place] | [phone] | | [facility] | | [address] | | | - LABORATORY | | [...] + | [facility] | [address] | [place], [place] | [phone] | | [facility] | | [address] | | | - LABORATORY | | [...] [address] | [place] | [phone] | | [facility] | | [address] | | | - LABORATORY | | [...] [address] | [place] | [phone] | | [facility] | | [address] | | | - LABORATORY | | [...] [address] | [place] | [phone] | | [facility] | | [address] | | | - LABORATORY | | [...] + | [facility] | [address] | [place] | [phone] | | [facility] | | [address] | | | - LABORATORY | | [...] [address] | [place] | [phone] | | [facility] | | [address] | | | - LABORATORY | | [...] ST. | [address] | [place], [place] | [phone] | | [facility] | | [address] | | | - LABORATORY | | [...] [address] | [place] | [phone] | | [facility] | | [address] | | | - LABORATORY | | [...] + | [facility] | [address] | [place] | [phone] | | [facility] | | [address] | | | - LABORATORY | | [...] ST. | [address] | [place] | [phone] | | [facility] | | [address] | | | - LABORATORY | | [...] [address] | [place] | [phone] | | [facility] | | [address] | | | - LABORATORY | | [...] mL/min/1.73m2 | [facility] | | | [place] | | | MEDICAL | | | [...] [address] | [place] | [phone] | | [facility] | | [address] | | | - LABORATORY | | [...] ST. | [address] | [place] | [phone] | | [facility] | | [address] | | | - LABORATORY | | [...] [address] | [place] | [phone] | | [facility] | | [address] | | | - LABORATORY | | [...] + | [facility] | [address] | [place] | [phone] | | [facility] | | [address] | | | - LABORATORY | | [...] ST. | [address] | [place] | [phone] | | [facility] | | [address] | | | - LABORATORY | | [...] + | [facility] | [address] | [place] | [phone] | | [facility] | | [address] | | | - LABORATORY | | [...] [address] | [place] | [phone] | | [facility] | | [address] | | | - LABORATORY | | [...] + | [facility] | [address] | [place] | [phone] | | [facility] | | [address] | | | - LABORATORY | | [...] mL/min/1.73m2 | [facility] | | | [place] | | | MEDICAL | | | [...] [address] | [place] | [phone] | | [facility] | | [address] | | | - LABORATORY | | [...] ST. | [address] | [place], [place] | [phone] | | [facility] | | [address] | | | - LABORATORY | | [...] | | | | | | | 6150-2745 Use NIGHT DOSE for | | | | | | | doses scheduled: HS, 3AM, | | | | | | | Nighttime 1593-6314, | | | | | | + [...] scheduled: AC, NPO, Daytime | | | 6676-9837 Use NIGHT DOSE for | | | doses scheduled: HS, 3AM, | | | Nighttime 0401-2619, | | + +---+ | | | [...]
--- OUTSIDE RECORDS SUMMARY | ~2019-07-27 | XMS | Encounter Summary ---
Demographics + + + | Address | [address] | | | [place] [address] | + + + | Home Phone [...] Author | [facility] | | | and [place] | + + + | Organization | [facility] | | | and [place] | + + + | Address | Unknown | + + + | Phone | Unavailable | + + + Support + + + + + | Name | Relationship | Address | Phone | + + + + + | India Tilley | ECON | [address] | | | | | [place], [place] | | | | | [address] | | + + + + + | Yina La | ECON | Unknown | | + + + + + | Yina Peterson | ECON | Unknown | | + + + + + | Leatha Casillas | ECON | Unknown | | + + + + + Care Team Providers + +------+ + | Care Supervisor Ship Maintenance Services Name | Role | Phone | + +------+ + PCP | Unavailable | + +------+ + Encounter Details +--------+ + + + + | Date | Type | Department | Care Team | Description | +--------+ + + + + | 02/26/ | Hospital | [facility] | Patricia, | | | 2006 - | Encounter | MED CTR CANCER | Venkatesh Forte MD [address] | | | | | [place] [address] | [facility] | | | 03/12/ | | [place], [place] | [place] [address] | | | 2006 | | [address] | [phone] | | | | | [phone] | | | +--------+ + + + [...]
--- OUTSIDE RECORDS SUMMARY | ~2019-07-27 | XMS | Encounter Summary ---
Demographics + + + | Address | [address] | | | [place] [address] | + + + | Home Phone [...] + + + | Author | [facility] | | | and [place] | + + + | Organization | [facility] | | | and [place] | + + + | Address | Unknown | + + + | Phone | Unavailable | + + + Support + + + + + | Name | Relationship | Address | Phone | + + + + + | India Tilley | ECON | [address] | | | | | [place], [place] | | | | | [address] | | + + + + + | Yina La | ECON | Unknown | | + + + + + | Yina Peterson | ECON | Unknown | | + + + + + | Leatha Casillas | ECON | Unknown | | + + + + + Care Team Providers + +------+ + | Care Refrigeration Repair Supervisor Name | Role | Phone | [...] | renal | PA-C 2229 | [address] | | | | | disease | [address] | [place], [place] | | | | | ([facility]) | [place] | [address] [facility] | | | | | Procedures | [address] [place] [address] | [facility] [place] | | | | | [place] ESR[place] | [facility] | [address] Phone: | | | | | RELATED [place] | [place] | [phone] | | | | | MONTHLY | [address] | Fax: | | | | | 20&/> YR OLD | Phone: | [phone] | | | | | 4/> VISITS | [phone] | | | | | | | Fax: | | | | | | | [phone] | | + +--------+ + + + + Encounter Details +--------+ + + + + | Date | Type | Department | Care Team | Description | +--------+ + + + + | 03/06/ | Off-Site | [facility] | Gopi Muñoz | End stage renal | | 2019 | Visit | NEPHROLOGY [address] | M, DO [address] | disease (HCC) | | | | [address] | [place], [place] [address] | (Primary Dx) | | | | [place] | [place], [place] | | | | | [address] | [address] | | | | | [phone] | | | +--------+ + + + [...]
--- OUTSIDE RECORDS SUMMARY | ~2019-07-27 | XMS | Encounter Summary ---
Demographics + + + | Address | [address] | | | [place] [address] | + + + | Home Phone [...] | Author | [facility] | | | and [place] | + + + | Organization | [facility] | | | and [place] | + + + | Address | Unknown | + + + | Phone | Unavailable | + + + Support + + + + + | Name | Relationship | Address | Phone | + + + + + | India Tilley | ECON | [address] | | | | | [place], [place] | | | | | [address] | | + + + + + | Yina La | ECON | Unknown | | + + + + + | Yina Peterson | ECON | Unknown | | + + + + + | Leatha Casillas | ECON | Unknown | | + + + + + Care Team Providers + +------+ + | Care Implementation Project Coordinator Name | Role | Phone | [...] | | [address] | [place], [place] [address] | ([facility]) (Primary Dx) | | | | [place], [place] | [place], [place] | | | | | [address] | [address] | | | | | [phone] | | | +--------+ + + + [...] PSTLabs for upcoming nephrology appointment [facility] signed by Celeste Butler RN at [...]
--- OUTSIDE RECORDS SUMMARY | ~2019-07-27 | XMS | Encounter Summary ---
Demographics + + + | Address | [address] | | | [place] [address] | + + + | Home Phone [...] + + + | Author | [facility] | | | and [place] | + + + | Organization | [facility] | | | and [place] | + + + | Address | Unknown | + + + | Phone | Unavailable | + + + Support + + + + + | Name | Relationship | Address | Phone | + + + + + | India Tilley | ECON | [address] | | | | | [place], [place] | | | | | [address] | | + + + + + | Yina La | ECON | Unknown | | + + + + + | Yina Peterson | ECON | Unknown | | + + + + + | Leatha Casillas | ECON | Unknown | | + + + + + Care Team Providers + +------+ + | Care Tissue Recovery Technician Name | Role | Phone | + +------+ + PCP | Unavailable | + +------+ + Encounter Details +--------+ + + + + | Date | Type | Department | Care Team | Description | +--------+ + + + + | 05/16/ | Hospital | [facility] | Patricia, | | | 2007 - | Encounter | MED CTR CANCER | Venkatesh Forte MD [address] | | | | | [place] [address] | [facility] | | | 06/12/ | | [place], [place] | [place] [address] | | | 2007 | | [address] | [phone] | | | | | [phone] | | | +--------+ + + + [...]
--- OUTSIDE RECORDS SUMMARY | ~2019-07-27 | XMS | Encounter Summary ---
Demographics + + + | Address | [address] | | | [place] [address] | + + + | Home Phone [...] + + | Author | [facility] | | | and Kamaljitana | + + + | Organization | [facility] | | | and [place] | + + + | Address | Unknown | + + + | Phone | Unavailable | + + + Support + + + + + | Name | Relationship | Address | Phone | + + + + + | India Tilley | ECON | [address] | | | | | [place], [place] | | | | | [address] | | + + + + + | Yina La | ECON | Unknown | | + + + + + | Yina Peterson | ECON | Unknown | | + + + + + | Leatha Casillas | ECON | Unknown | | + + + + + Care Team Providers + +------+ + | Care Refining Supervisor Name | Role | Phone | [...] Line | | | | [address] [place] | [place] [address] | | | | | [address] | [phone] | | | | | [phone] | | | +--------+---------+ + + + [...] Up Appointments: ELI BALL [address] [facility] [address] [facility] [address] [place] [phone] [facility] [address] [facility] [phone] Discharge Disposition: Home with Home Health Consultants This Admission: ID, Nephrology Hospital Course: 73-year-old female with history of ESRD on hemodialysis, hypertension, type 2 diabetes, hyp othyroidism, chronic anemia, hyperlipidemia with a history of stroke transferred from [facility] for evaluation of T11-T12 lesion noted on [...] initially had planned to go to SNF ([facility] in [place], [place] - of which has accepted her and [...] dialysis days after dialysis Osteomyelitis/Discitis of T11, [id number] -MRI spine 03/23/19: "mild paravertebral soft tissue [...] dialysis patient - has OP clinic in [place] already Macrocytic anemia likely secondary to-likely anemia [...] Value Units Date/Time Culture, Aerobic + Anaerobic [[id number]] Collected: 03/24/191513 Order Status: Completed Lab Status: Final result Updated: 03/29/19717 Specimen: Body Fluid from Vertebrae, Thoracic FINAL REPORT -- No Growth No anaerobes isolated Gram Stain Few Neutrophils No squamous epithelial cells seen No organisms seen Comment: Performed by [facility] [address] [place] [address] Gram Stain [[id number]] Collected: 03/24/19 151 Order Status: Canceled Lab Status: No result Updated: 03/24/19 151 Specimen: Body Fluid from Vertebrae, Thoracic Culture, AFB Smear [[id number]] Collected: 03/24/191513 Order Status: Completed Lab Status: Preliminary result Updated: 03/25/19 1054 Specimen: Body Fluid from Vertebrae, Thoracic AFB Smear Result No Acid Fast Bacilli Seen Comment: Performed by [facility] [address] [place] [address] Culture, Fungus, Smear [[id number]] Collected: 03/24/19 151 Order Status: Completed Lab Status: Preliminary result Updated: 03/25/19 1039 Specimen: Body Fluid from Vertebrae, Thoracic CALCOFLUOR No fungal elements seen Comment: Performed by [facility] [address] [place] [address] Culture, Blood [[id number]] Collected: 03/23/19 2333 Order Status: Completed Lab Status: Final result Updated: 03/28/19 2352 Specimen: Blood Culture No growth after 5 days incubation. Culture, Blood [[id number]] Collected: 03/23/19 2255 Order Status: Completed Lab Status: Final result Updated: 03/28/19 7857 Specimen: Blood Culture No growth after 5 [...] this chart may have been created with [employer] voice recognition software. Occasi onal wrong-word or [...] | | | | | | | ([facility]), Right hip | | | [...] 03/31/2019 5:42 PM PDTPatient left with family, [facility] and i nstructions received before discharge and RX's filled at outpt pharmacy. VSS, ambulating wit h SBA, A&O x4, accepting of discharge. Dialysis completed this AM. Pain controlled with q4 o xy, LD 1400. Home health will f/u tomorrow. AVS reviewed and sent with patient, verbalized u nderstanding. Merry Hess SENIOR ENERGY CONSULTANT - 03/31/2019 11:05 AM PDTSOCIAL WORK PLAN: Home with [facility] NEXT STEPS: 1. Pt to follow up with [facility] 2. [facility] to follow up with pt at dc INTERVENTION: SW spoke with [facility], pt has a $2.50 out of pocket cost weekly, pt is agreeable to pay for this. Therefore pt will dc today with [facility]. ROBIN provided [facility]ie with hard script for IV abx. ROBIN faxed over HH order to [facility], ROBIN faxed over IV vanco script to [facility]. [facility] notified of pt's dc home. notified. Candie to meet with pt later this afternoon for teach. ROBIN provided pt with 3 gas cards to assist with transportation. No further dc needs identified. SW received call from [facility] clinic that they cannot provide IV Vanco as Vanco h as not been consigned by [facility] that has privileges in [place]. IV Vanco will now be done b y [facility], [address] [place] faxed over hard script to Candie. They will have both IV Abx ready and will teach pt shortly. No further dc needs identified. CONTACTS: Yina La: sister India Tilley: sister [place] Transportation: [place] Medicaid Transportation fax: [phone] [facility]: [phone] fax: [phone] [facility] [phone] [facility]: [phone] [facility]: [phone] [facility] FAX: [phone] Camryn Michelle DO Brandon - 03/31/2019 10:12 AM PDT Patient: Estefani Tilley Date of : 1945 Admit Date: 03/24/2019 Date of Service: 03/31/2019 PCP: Francisca Womack PA-C Hospital Day: Hospital Day: 8 Hospital Course: 73-year-old female with history of ESRD on hemodialysis, hypertension, type 2 diabetes, hyp othyroidism, chronic anemia, hyperlipidemia with a history of stroke transferred from [facility] for evaluation of T11-T12 lesion noted on [...] initially had planned to go to SNF ([facility] in [place], [place] - of which has accepted her [...] dialysis patient - has OP clinic in [place] already Macrocytic anemia likely secondary to-likely anemia [...] hoping to arrange home IV antibiotics through [facility]. Awaiting to see if insurance will cover [...] - 99 mg/dL Final Comment: Performed by [facility] [address] [place] [address] 03/30/2019 21:14 200 (H) 65 - 99 mg/dL Final Comment: Performed by [facility] [address] [place] [address] 03/30/2019 17:46 111 (H) 65 - 99 mg/dL Final Comment: Performed by [facility] [address] [place] [address] 12/09/2018 18:05 113 (H) 70 - 109 [...] this chart may have been created with [employer] voice recognition software. Occasi onal wrong-word or sound-alike substitutions may have occurred due to the inherent mckeon itations of voice recognition software. Please read the chart carefully and recognize, using context, where these substitutions have occurred rgJesus mcdonald MD - 03/31/2019 8:26 AM PDT . Infectious Diseases Progress Note Pt. Name/Age/: Estefani Tilley 73 y.o. 1945 Med. Record Number: [id number] Date of admission: 03/24/2019 Patient admitted with [...] Electronically signed by: Jesus Whitney, 03/31/2019 8:26 [facility] Robb Phillips, PharmD - 03/31/2019 7:25 AM PDTFormatting of this note might be different from the [facility] nal. Pharmacy Progress Note VANCOMYCIN PER PHARMACY [...] mg/dL (H)). Lab Results Component Value Date/[facility] 03/31/2019 04:12 I/O last 3 completed shifts: In: 1810 [P.O.:1810] Out: 0 No intake/output data recorded. Micro/Cultures: BCx - NGTD, BiopsyCx - NGTD Per P&T-approved Vancomycin Protocol Electronically signed by: Robb Wheeler PharmD 03/31/2019 7:25 su, Randy Nunez MD - 03/30/2019 9:45 PM PDT [facility] INPATIENT ROUND[facility] NOTE Date of Service: 03/30/2019 Rounding Physician: Randy Corrigan MD Patient Name: Estefani Tilley : 1945 Medical Record: [id number] Hospital Summary: Estefani Tilley is a 73 y.o. female with a PMHx of ESRD, HTN, Dm type 2, hypothyroidism, HLd, CVA who is under the care of Dr Muñoz at [facility] who dialyzes MWF admitted with possible osteo [...] Trace Corrigan MD, 03/30/2019, 21:45 etNan wilkes, SENIOR ENERGY CONSULTANT - 03/30/2019 2:34 PM PDT SOCIAL WORK D/C PLAN:DC home with [facility] providing IV-ABX and [facility] providing picc care and lab draws vs [facility] NEXT STEPS: -SW will need to follow up with [facility] regarding providing IV-ABX to pt. -SW will need to follow up with [facility] regarding providing picc care and lab draws. -SW will need to follow up with [facility] regarding having pt receive vanco do se while at dialysis center if pt is to go home with IV-ABX -SW will need to follow up with [facility] if pt is unable to go home with IV-ABX rega ridng pt's DC -SW will need to fax SNF orders, scripts and PASRR to [facility] if pt is unable to go home -SW will need to provide gas cards to pt's family for transportation home. INTERVENTION:SW spoke with pt regarding acceptance to [facility]. Pt is now wanting to go home with IV-ABX. SW spoke with [facility]. They go out to [place], [place] and have openings for nursing care. Referral faxed to [facility]. Pt is amenable to using [facility] for IV-ABX. SW spoke with CANDIE liasion who will run pt's be nefits to see if she can DC home with IV-ABX. Pt states that [facility] can provide teach to her son to help administer IV-ABX. SW left message for [facility] to see if they can provide vanco dose to pt at [facility] on Wednesday, Wednesday and Wednesday if pt is able to go home. Pt states that she does dialysis on Wednesday, Wednesday and Wednesday from 12:00-4:00. SW received phone call from [facility]. They have accepted pt for admission if [...] if pt is going to go to [facility]. ASSESSMENT/CHART REVIEW:73 yr old femalewith a history of ESRD on hemodialysis, hypertens ion, type 2 diabetes, hypothyroidism,chronic anemia,hyperlipidemia, hx of stroke [facility] T[facility]-T12 lesion noted on MRI concerning fo r osteomyelitis. ROBIN met with pt's sister, Yina, and her cousin, Keri, who were waiting in pt's room while s he was in dialysis. ROBIN will need to follow up with pt re: d/c planning. Pt's sister and cousin related that pt mostly lives at Yina's house outside [place], [place], but does not like to be tied down because she enjoys attending [employer] festivals and many events. She does at tend dialysis weekly. Pt has a vehicle and is very independent. D/C TRANSPORT:Pt can be transported home or to [facility] via family in a private car. They will need gas cards to help pay for transportation. BARRIERS TO D/C:none CONTACTS: Yina La: sister India Tilley: sister [place] Transportation: [place] Medicaid Transportation fax: [phone] [facility]: [phone] fax: [phone] [facility] [phone] [facility]: [phone] [facility]: [phone] [facility] FAX: [phone] Nan Cheney MSW - 03/30/2019 12:57 PM PDTSOCIAL WORK D/C PLAN:SNF: [facility] NEXT STEPS:Await bed availability INTERVENTION: ROBIN called and left message for Roneugene at [facility] regarding if they are willing to accept pt and to discuss transportation to and from dialysis. SW also called and left message for [place] Medicaid transportation regarding if they can transp ort pt to and from dialysis upon DC. Pt states that she goes to [facility] dialys is in [place], [place] on Wed, Wed, and Fridays from 12:00-4:00 pm. SW left message with [facility] dialysis regarding if there was any way that they may also be able to help with transportation to and from dialysis while pt is in rehab and to ensure that pt still has her chair time scheduled. [facility] is only open M on, Wednesday and Wednesday. ASSESSMENT/CHART REVIEW:73 yr old femalewith a history of ESRD on hemodialysis, hypertens ion, type 2 diabetes, hypothyroidism,chronic anemia,hyperlipidemia, hx of stroke [facility] noted on MRI concerning fo r osteomyelitis. ROBIN met with pt's sister, Yina, and her cousin, Keri, who were waiting in pt's room while s he was in dialysis. ROBIN will need to follow up with pt re: d/c planning. Pt's sister and cousin related that pt mostly lives at Yina's house outside [place], [place], but does not like to be tied down because she enjoys attending [employer] festivals and many events. She does at tend dialysis weekly. Pt has a vehicle and is very independent. D/C TRANSPORT:tbd BARRIERS TO D/C:none CONTACTS: Yina La: sister India Tilley: sister [place] Transportation[place] Transportation fax: [phone] [facility]: [phone] fax: [phone] [facility] [phone] [facility]: [phone] signed by JENNIFER Xavier at 03/30 1:09 [...] history of stroke transferred from [facility] for evaluation of T11-T12 lesion [...] awaiting to hear from [facility], in [place] regarding possible acceptance. She is improved overall and medic ally ready for discharge. She is a chronic dialysis patient, Nephrology is following for on going dialysis needs. She will need three times weekly dialysis while at as well. SW t o help determine [...] dialysis patient - has OP clinic in [place] already ---> will need SW to help [...] SNF - awaiting to hear back from [facility], in [place], [place] regarding possible acceptance there. Medically ready [...] Single Lumen 03/24/19 2143 Left Lateral Forearm xtaa-lnn-qggppa daniel ter system 20 gauge;1 / in [...] - 99 mg/dL Final Comment: Performed by [facility] [address] [place] [address] 03/29/2019 21:09 157 (H) 65 - 99 mg/dL Final Comment: Performed by [facility] [address] [place] [address] 03/29/2019 18:50 91 65 - 99 mg/dL Final Comment: Performed by [facility] [address] [place] [address] 12/09/2018 18:05 113 (H) 70 - 109 [...] this chart may have been created with [employer] voice recognition software. Occasi onal wrong-word or sound-alike substitutions may have occurred due to the inherent mckeon itations of voice recognition software. Please read the chart carefully and recognize, using context, where these substitutions have occurred rgJesus mcdonald MD - 03/30/2019 7:15 AM PDT . Infectious Diseases Progress Note Pt. Name/Age/: Estefani Tilley 73 y.o. 1945 Med. Record Number: [id number] Date of admission: 03/24/2019 Patient admitted with [...] Electronically signed by: Jesus Whitney, 03/30/2019 7:15 [facility] Mary Wade RN - 03/30/2019 6:16 AM [...] Bowel Movement: Stool Occurrence: 1(pt reported) (03/27/19 823) Active Infusions: dextrose 10% Skin: Skin Integrity: [...] has depression wishful of Monitoring Requirements [facility] Suicide Policy [facility] Suicide Risk/Telesitter Screening Utilizing this rating [...] POCGLU 112 (H) 12/08/2018 0650 Merry Hess SENIOR ENERGY CONSULTANT - 03/29/2019 4:18 PM PDTSOCIAL WORK D/C PLAN:SNF: [facility] NEXT STEPS:Await bed availability INTERVENTION: SW called and spoke with admissions person at [facility], they are still discussing pt's case. They [...] anemia,hyperlipidemia, hx of stroke [facility]-T[facility] lesion noted on MRI concerning fo r osteomyelitis. SW met with pt's sister, Yina, and her cousin, Keri, who were waiting in pt's room while s he was in dialysis. SW will need to follow up with pt re: d/c planning. Pt's sister and cousin related that pt mostly lives at Yina's house outside [place], [place], but does not like to be tied down because she enjoys attending [employer] festivals and many events. She does at tend dialysis weekly. Pt has a vehicle and is very independent. D/C TRANSPORT:tbd BARRIERS TO D/C:none CONTACTS: Yina La: sister India Tilley: sister [place] Medicaid Transportation: [facility]: [phone] fax: [phone] [facility] [phone] signed by JENNIFER Contreras at 03/29/2019 4:20 PM PDTHsu, Randy Nunez MD - 03/29/2019 12:32 PM PDT [facility] INPATIENT ROUNDING NOTE Date of Service: 03/29/2019 Rounding Physician: Randy Corrigan MD Patient Name: Estefani Tilley : 1945 Medical Record: [id number] Hospital Summary: Estefani Tilley is a 73 y.o. female with a PMHx of ESRD, HTN, Dm type 2, hypothyroidism, HLd, CVA who is under the care of Dr Muñoz at [facility] who dialyzes MWF admitted with possible osteo [...] with a history of stroke transferred from [facility] for evaluation of T11-T12 lesion noted on [...] dialysis patient - has OP clinic in [place] already ---> will need SW to help [...] SNF - awaiting to hear back from [facility], in [place], [place] regarding possible acceptance there. Could possibly [...] Single Lumen 03/24/19 2143 Left Lateral Forearm onpa-zaa-zosjwa daniel ter system 20 gauge;1 1/4 in [...] - 99 mg/dL Final Comment: Performed by [facility] [address] [facility] [place] [address] 03/28/2019 21:06 144 (H) 65 - 99 mg/dL Final Comment: Performed by [address] [facility] [place] [address] 03/28/2019 11:22 119 (H) 65 - 99 mg/dL Final Comment: Performed by [facility] [address] [place] [address] 12/09/2018 18:05 113 (H) 70 - 109 [...] this chart may have been created with [employer] voice recognition software. Occasi onal wrong-word or [...] Tilley 73 y.o. 1945 Med. Record Number: [id number] Date of admission: 03/24/2019 Patient admitted with [...] Electronically signed by: Jesus Whitney, 03/29/2019 7:35 [facility] zech, Carolina Restrepo RN - 03/28/2019 7:08 PM [id number] - Report called to [facility] RN. Pt's belongings . I pad and I phone w/ chargers as well as pt's purse, and shoes, and shirt and pants all sent with her to [address] [place] [address]. Pt had been sitting up eating dinner. [...] for time spent with her. Noti fied [address] [place] [address] RN of pt's recent loss. Transferred at [...] with a history of stroke transferred from [facility] for evaluation of T11-T12 lesion noted on [...] Single Lumen 03/24/19 2143 Left Lateral Forearm jttn-jll-pwbkkc daniel ter system 20 gauge;1 1/4 in [...] - 99 mg/dL Final Comment: Performed by [facility] [address] [place] [address] 03/28/2019 07:09 75 65 - 99 mg/dL Final Comment: Performed by [facility] [address] [place] [address] 03/27/2019 20:38 109 (H) 65 - 99 mg/dL Final Comment: Performed by [facility] [address] [place] [address] 12/09/2018 18:05 113 (H) 70 - 109 [...] this chart may have been created with [employer] voice recognition software. Occasi onal wrong-word or sound-alike substitutions may have occurred due to the inherent mckeon itations of voice recognition software. Please read the chart carefully and recognize, using context, where these substitutions have occurred Cordell Mcgarry, [facility] - 03/28/2019 2:57 PM PDTSOCIAL WORK D/C PLAN: SNF: [facility] NEXT STEPS: Await bed availability INTERVENTION: On-going dc planning. Rec'd update from [facility]. They confirm they have r ec'd clinical notes and are currently reviewing. SW will follow. ASSESSMENT/CHART REVIEW:73 yr old femalewith a history of ESRD on hemodialysis, hypertens ion, type 2 diabetes, hypothyroidism,chronic anemia,hyperlipidemia, hx of stroke [facility] lesion noted on MRI concerning fo r osteomyelitis. SW met with pt's sister, Yina, and her cousin, Keri, who were waiting in pt's room while s he was in dialysis. SW will need to follow up with pt re: d/c planning. Pt's sister and co usin related that pt mostly lives at Yina's house outside [place], but does not like to be tied down because she enjoys attending [employer] festivals and many events. She does atten d dialysis weekly. Pt has a vehicle and is very independent. D/C TRANSPORT: tbd BARRIERS TO D/C: none CONTACTS: Yina La: sister India Tilley: sister [facility]: [phone] fax: [phone] [facility] [phone] illum, Mario Alberto morales MD - 03/28/2019 7:34 AM PDTFormatting of this note might be different from the [facility] Infectious Diseases Progress Note Pt. Name/Age/: Estefani Tilley 73 y.o. 1945 Med. Record Number: [id number] Date of admission: 03/24/2019 Patient admitted with [...] Electronically signed by: Carlos Jansen, 03/28/2019 7:34 [facility] Katey Solis MD - 03/27/2019 8:58 PM PDT Patient: Estefani Tilley Date of : 1945 Admit Date: 03/24/2019 Date of Service: 03/27/2019 PCP: Francisca Womack PA-C Hospital Day: Hospital Day: 4 Hospital Course: 73-year-old female with history of ESRD on hemodialysis, hypertension, type 2 diabetes, hyp othyroidism, chronic anemia, hyperlipidemia with a history of stroke transferred from [facility] for evaluation of T11-T12 lesion noted on MRI concerning for osteomyeliti s. Infectious disease consulted. Status post aspiration from her thoracic spine, Gram stain negative, cultures pending. Rosemary ent started on empiric vancomycin and cefepime. Will need 6 weeks of IV antibiotics. Discussed with nephrology, recommend placement of Tillman catheter instead of PICC line for senior living IV antibiotics. Nephrology following for maintenance hemodialysis. SW following for SNF. Assessment and Plan: Assessment of active problems addressed today: Osteomyelitis/discitis of T11, T12 vertebra Afebrile, improved WBC count, improved CRP Status post aspiration from her thoracic spine, Gram stain negative, cultures pending- [facility] Infectious disease help appreciated Continue vancomycin and cefepime Echocardiogram negative for any endocarditis. Patient will need IV antibiotics for 6 weeks. Continue probiotic Discussed with nephrology, recommend placement of Tillmna catheter instead of PICC line for senior living IV antibiotics. Pain management -trial of lidocaine [...] Single Lumen 03/24/19 2143 Left Lateral Forearm tnyf-fth-xnwtel daniel ter system 20 gauge;1 09/16 in [...] - 99 mg/dL Final Comment: Performed by [facility] [address] [place] [address] 03/27/2019 13:58 82 65 - 99 mg/dL Final Comment: Performed by [facility] [address] [place] [address] 03/27/2019 06:39 83 65 - 99 mg/dL Final Comment: Performed by [facility] [address] [place] [address] 12/09/2018 18:05 113 (H) 70 - 109 [...] this chart may have been created with [employer] voice recognition software. Occasi onal wrong-word or sound-alike substitutions may have occurred due to the inherent mckeon itations of voice recognition software. Please read the chart carefully and recognize, using context, where these substitutions have occurred Darlin Mcgarry, [facility] - 03/27/2019 3:17 PM PDTSOCIAL WORK D/C PLAN: SNF: [facility] NEXT STEPS: Await bed availability INTERVENTION: Rec'd call from Emili at [facility]. She states the contracted f acility near pt's home is [facility]. Spoke with pt and with sister India. Referral and (-) Pasrr sent to [facility]. Copy of Pasrr placed in light chart with request to file into jos rds. SW will follow. ASSESSMENT/CHART REVIEW:73 yr old femalewith a history of ESRD on hemodialysis, hypertens ion, type 2 diabetes, hypothyroidism,chronic anemia,hyperlipidemia, hx of stroke [facility] lesion noted on MRI [...] be tied down because she enjoys attending [employer] festivals and many events. She does atten d dialysis weekly. Pt has a vehicle and is very independent. D/C TRANSPORT: tbd BARRIERS TO D/C: none CONTACTS: Yina La: sister India Tilley: sister [facility]: [phone] fax: [phone] [facility] [phone] Gregg Mcgarry CERTIFIED NURSING ATTENDANT - 03/27/2019 2:17 PM PDTFormatting of this note might be different from jerald more. SOCIAL WORK D/C PLAN: SNF NEXT STEPS: SW to follow up with pt regarding SNF preference INTERVENTION: On-going dc planning, chart reviewed and met with pt. Discussed need of manager intermediate IV abx, Discussed options. Provided list of [...] be tied down because she enjoys attending [employer] festivals and many events. She does atten d dialysis weekly. Pt has a vehicle and is very independent. ASSESSMENT/CHART REVIEW:73 yr old femalewith a history of ESRD on hemodialysis, hypertens ion, type 2 diabetes, hypothyroidism,chronic anemia,hyperlipidemia, hx of stroke transfe [facility] T[facility]-T12 lesion noted on MRI concerning fo r osteomyelitis. D/C TRANSPORT: tbd BARRIERS TO D/C: none CONTACTS: Yina La Sister [phone] India Tilley Sister [phone] Irish Cadet, German Professor - 03/27/2019 1:33 PM PDTFormatting of this [...] mg/dL (H)). Lab Results Component Value Date/Time [facility]ORT[facility]OM 17.7 03/27/2019 05:12 I/O last 3 completed shifts: In: 360 [P.O.:360] Out: 1 [Urine:1] I/O this shift: In: - Out: 2000 Micro/Cultures: BCx - NGTD, BiopsyCx - NGTD Per P&T-approved Vancomycin Protocol Electronically signed by: Aimee Carroll, German Professor 03/27/2019 13:33Electronically si gned by Ray Joel, PharmD at 03/27/2019 2:04 PM PDT Associated attestation - Ray Joel PharmD - 03/27/2019 2:04 PM PDTI reviewed and agr ee with the assessment and plan. Ray Joel PharmD 03/27/2019 14:04 Randy Corrigan MD - 03/27/2019 10:52 AM PDT [facility] INPATIENT ROUNDING NOTE Date of Service: 03/27/2019 Rounding Physician: Randy Corrigan MD Patient Name: Estefani Tilley : 1945 Medical Record: [id number] Hospital Summary: Estefani Tilley is a 73 y.o. female with a PMHx of ESRD, HTN, Dm type 2, hypothyroidism, HLd, CVA who is under the care of Dr Muñoz at [facility] who dialyzes MWF admitted with possible osteo [...] Tilley 73 y.o. 1945 Med. Record Number: [id number] Date of admission: 03/24/2019 Patient admitted with [...] Electronically signed by: Carlos Jansen, 03/27/2019 7:10 [facility] Katey Solis MD - 03/26/2019 5:40 PM PDT Patient: Estefani Tilley Date of : 1945 Admit Date: 03/24/2019 Date of Service: 03/26/2019 PCP: Francisca Womack PA-C Hospital Day: Hospital Day: 3 Hospital Course: 73-year-old female with history of ESRD on hemodialysis, hypertension, type 2 diabetes, hyp othyroidism, chronic anemia, hyperlipidemia with a history of stroke transferred from [facility] for evaluation of T11-T12 lesion noted on [...] Single Lumen 03/24/19 2143 Left Lateral Forearm maoz-nqm-tufuqf daniel ter system 20 gauge;1 09/16 in [...] - 99 mg/dL Final Comment: Performed by [facility] [address] [place] [address] 03/26/2019 06:49 116 (H) 65 - 99 mg/dL Final Comment: Performed by [facility] [address] [place] [address] 03/25/2019 20:37 110 (H) 65 - 99 mg/dL Final Comment: Performed by [facility] [address], [place] [address] 12/09/2018 18:05 113 (H) 70 - 109 [...] this chart may have been created with [employer] voice recognition software. Occasi onal wrong-word or sound-alike substitutions may have occurred due to the inherent mckeon itations of voice recognition software. Please read the chart carefully and recognize, using context, where these substitutions have occurred Jose Gamez, Pharmacy R esident - 03/26/2019 10:52 AM PDTFormatting of this note might be different from [facility] Progress Note VANCOMYCIN PER PHARMACY [...] Vancomycin Protocol Electronically signed by: Jose Menard, German Professor 03/26/2019 10:52 sRandy carter MD - 03/26/2019 1 0:38 AM PDT [facility] INPATIENT ROUNDING NOTE Date of Service: 03/26/2019 Rounding Physician: Randy Corrigan MD Patient Name: Estefani Tilley : 1945 Medical Record: [id number] Hospital Summary: Estefani Tilley is a 73 y.o. female with a PMHx of ESRD, HTN, Dm type 2, hypothyroidism, HLd, CVA who is under the care of Dr Muñoz at [facility] who dialyzes MWF admitted with possible osteo disccitis t11/t12 ASSESSMENT AND PLAN 1. ESRD/HD dependent Access is LUE AVF working well No indications for HD today Usually dialyzes MWF at [facility] Hd tommorow 2. Anemia Hg at goal [...] Tilley 73 y.o. 1945 Med. Record Number: [id number] Date of admission: 03/24/2019 Patient admitted with [...] Electronically signed by: Carlos Jansen, 03/26/2019 8:03 [facility] Katey Solis MD - 03/25/2019 3:50 PM PDT Patient: Estefani Tilley Date of : 1945 Admit Date: 03/24/2019 Date of Service: 03/25/2019 PCP: Francisca Womack PA-C Hospital Day: Hospital Day: 2 Hospital Course: 73-year-old female with history of ESRD on hemodialysis, hypertension, type 2 diabetes, hyp othyroidism, chronic anemia, hyperlipidemia with a history of stroke transferred from [facility] for evaluation of T11-T12 lesion noted on [...] Single Lumen 03/24/19 2143 Left Lateral Forearm pcku-kzl-wzuhmi daniel ter system 20 gauge;1 1/4 in [...] - 99 mg/dL Final Comment: Performed by [facility] [address] [place] [address] 03/25/2019 06:52 107 (H) 65 - 99 mg/dL Final Comment: Performed by [facility] [address] [place] [address] 03/24/2019 20:11 112 (H) 65 - 99 mg/dL Final Comment: Performed by [facility] [address] [place] [address] 12/09/2018 18:05 113 (H) 70 - 109 [...] this chart may have been created with [employer] voice recognition software. Occasi onal wrong-word or sound-alike substitutions may have occurred due to the inherent mckeon itations of voice recognition software. Please read the chart carefully and recognize, using context, where these substitutions have occurred su, Randy Nunez MD - 0 03/25/2019 1:47 PM PDT [facility] INPATIENT ROUNDING NOTE Date of Service: 03/25/2019 Rounding Physician: Randy Corrigan MD Patient Name: Estefani Tilley : 1945 Medical Record: [id number] Hospital Summary: Estefani Tilley is a 73 y.o. female with a PMHx of ESRD, HTN, Dm type 2, hypothyroidism, HLd, CVA who is under the care of Dr Muñoz at [facility] who dialyzes MWF admitted with possible osteo disccitis t11/t12 ASSESSMENT AND PLAN 1. ESRD/HD dependent Access is LUE AVF working well No indications for HD today Usually dialyzes MWF at [facility] She is below her EDW an EDW [...] by: Trace Corrigan MD, 03/25/2019, 13:47 ettlerNan, SENIOR ENERGY CONSULTANT - 03/25/2019 10:49 AM PDT SOCIAL WORK [...] mostly lives at Yina's house [place], but does not like to be tied down because she enjoys attending [employer] festivals and many events. She does atten d dialysis weekly. Pt has a vehicle and is very independent. ASSESSMENT/CHART REVIEW:73 yr old femalewith a history of ESRD on hemodialysis, hypertens ion, type 2 diabetes, hypothyroidism,chronic anemia,hyperlipidemia, hx of stroke [facility] lesion noted on MRI concerning fo r osteomyelitis. D/C TRANSPORT: tbd BARRIERS TO D/C: none CONTACTS: Yina La Sister [phone] India Tilley Sister [phone] Carlos Gonzales M D - 03/25/2019 8:34 AM PDT Infectious Diseases Progress Note Pt. Name/Age/: Estefani Tilley 73 y.o. 1945 Med. Record Number: [id number] Date of admission: 03/24/2019 Patient admitted with [...] Electronically signed by: Carlos Jansen, 03/25/2019 8:34 [facility] Jose Gamez, German Professor - 03/24/2019 10:46 PM PDTFormatting of this [...] Vancomycin Protocol Electronically signed by: Jose Menard, German Professor 03/24/2019 22:46 ladys England MSW - 9 [...] pt mostly lives at Yina's house outside [place], [place], but do es not like to be tied down because she enjoys attending [employer] festivals and many events. She does attend dialysis weekly. Pt has a vehicle and is very independent. ASSESSMENT/CHART REVIEW:73 yr old female with a history of ESRD on hemodialysis, hypertensi on, type 2 diabetes, hypothyroidism, chronic anemia, hyperlipidemia, hx of stroke transferre d from [facility] for evaluation of T11-T12 lesion noted on MRI concerning for ost eomyelitis. D/C TRANSPORT: tbd BARRIERS TO D/C: none CONTACTS: Yina La Sister [phone] India Tilley Sister [phone] Katey Solis MD - 03/24/2019 3:53 PM PDTPatient seen and examined. Chart reviewed. Briefly, 73-year-old female with history of ESRD on hemodialysis, hypertension, type 2 diab etes, hypothyroidism, chronic anemia, hyperlipidemia with a history of stroke transferred fr om [facility] for evaluation of T11-T12 lesion [...] not have any p raza, consider antidepressants. 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 2. [employer] Trough: 15-20 mcg/ml [...] Procedure Component Value Units Date/Time Culture, Blood [[id number]] Collected: 03/23/192332 Order Status: Sent Lab Status: In process Updated: 03/23/192348 Specimen: Blood Culture, Blood [[id number]] Collected: 03/23/192254 Order Status: Sent Lab Status: [...] | [facility] | | | POC | [facility] [address], | | SACRED | | | | [place] [address] | | HEART | | | |Performed by [facility] [address], [place] [address] | | MEDICAL | | | | [...] + + | [facility] | [address] | [place] [address] | | | [facility] | | | | | [...] | PROVIDENCE | | | POC | [facility] [address], | | SACRED | | | | [place], [place] | | HEART | | | |Performed by [facility] [address], [place], [place] | | MEDICAL | | | [...] SACRED | [address] | [place], [place] | | | [facility]ENTER [...] | | LABORATORY | | | | [facility] [address] [place], | | CERNER | | | | [place] [address] | | | | + + + + + + + + | Specimen | + + | Blood specimen | | (specimen) | + + + + + + + | Performing | Address | City/State/Zipcode | Phone Number | | Organization | | | | + + + + + | [facility] | [address] | [place] [address] | | | [facility] | | | | | [...] ENCE | | | Immature | by [facility] [address], | K/uL | SACRED | | | Granulocyte | [place] [address] | | HEART | | | s |Performed by [facility] [address], [place] [address] | | MEDICA L | | | [...] | PROVIDEJOSE AE AGUSTO | [address] | [place] [address] | | | [facility] | | | | | [...] by | | | | | | [facility] [address], | | | | | | [place] [address] | | | | + + + + + + + + | Specimen | + + | Blood specimen | | (specimen) | + + + + + + + | Performing | Address | City/State/Zipcode | Phone Number | | Organization | | | | + + + + + | PROVIDEJOSE AE SACRED | [address] | [place] [address] | | | [facility] | | | | | LABORATORY [...] | | | POC | Performed by [facility] [address] | | SACRED | | | | [address] [place], [place] | | HEART | | | | [address] | | MEDICAL | | | | [...] + + | BETH [facility] | [address] | [place] [address] | | | [facility] | | | | | [...] | | | POC | Performed by [facility] [address] | | SACRED | | | | [address] [place], [place] | | HEART | | | | [address] | | MEDICAL | | | | [...] | [address] | [place] [address] | | | [facility]ICAL CENTER | [...] | | | POC | Performed by [facility] [address] | | SACREVANS | | | | [address], [place] | | HEART | | | | [address] | | MEDICAL | | | | [...] + + | B[facility] | [address] | [place] [address] | | | [facility] | | | | | [...] | | | POC | Performed by [facility] [address] | | SACRED | | | | [address], [place] | | HEART | | | | [address] | | MEDICAL | | | | [...] SACRED | [address] | [place], [place] | | | HEART [facility] | | | | | LABORATORY [...] PROVIDE NCE | | | | by [facility] [address], | | SACRED | | | | [place] | | HEART | | | |Performed by [facility] [address], [place], [place] | | MEDICAL | | | [...] + + | [facility] | [address] | [place] [address] | | | [facility] | | | | | [...] LUIS CE | | | | by [facility] [address], | | SACRED | | | | [place] [address] | | HEART | | | |Performed by [facility] [address], [place] [address] | | MEDICAL | | | | [...] + + | JIMRENUKA LIZ | [address] | [place] [address] | | | [facility] | | | | | [...] | | LABORATORY | | | | [facility] [address], | | CERNER | | | | [place] [address] | | | | + + + + + + + + | Specimen | + + | Blood specimen | | (specimen) | + + + + + + + | Performing | Address | City/State/Zipcode | Phone Number | | Organization | | | | + + + + + | [facility] | [address] | [place] [address] | | | [facility] | | | | | [...] ENCE | | | Counted | by [facility] [address], | | SACRED | | | | [place] [address] | | HEART | | | |Performed by [facility] [address] [place], [place] [address] | | MEDICA L | | | [...] + + | B[facility] | [address] | [place] [address] | | | [facility] | | | | | [...] | | | POC | Performed by [facility] [address] | | SACRED | | | | [address] [place] | | HEART | | | | [address] | | MEDICAL | | | | [...] SACRED | [address] | [place] | | | [facility] | | | | | [...] PROVIDEJOSE AE | | | POC | [facility] [address], | | SACRED | | | | [place] | | HEART | | | |Performed by [facility] [address], [place] [address] | | MEDICAL | | | | [...] + + | BETH [facility]Z | [address] | [place] [address] | | | [facility]ENTER | [...] | | | POC | Performed by [facility] [address] | | SACRED | | | | [address] [place], [place] | | HEART | | | | [address] | | MEDICAL | | | | [...] + + | B[facility] | [address] | [place] [address] | | | [facility] | | | | | [...] PROVIDEJOSE AE | | | POC | [facility] [address], | | SACRED | | | | [place] [address] | | HEART | | | |Performed by [facility] [address], [place] | | MEDICAL | | | [...] | [address] | [place] | | | [facility] | | | | | [...] by | | | | | | [facility] [address], | | | | | | [place] [address] | | | | + + + + + + + + | Specimen | + + | Blood specimen | | (specimen) | + + + + + + + | Performing | Address | City/State/Zipcode | Phone Number | | Organization | | | | + + + + + | [facility] | [address] | [place] [address] | | | [facility] | | | | | [...] ENCE | | | Counted | by [facility] [address], | | SACRED | | | | [place] [address] | | HEART | | | |Performed by [facility] [address], [place] [address] | | MEDICA L | | | [...] + + | B[facility] | [address] | [place] [address] | | | [facility] | | | | | [...] PROVIDEN CE | | | | by [facility] [address], | | SACRED | | | | [place] [address] | | HEART | | | |Performed by [facility] [address], [place] [address] | | MEDICAL | | | | [...] SACRED | [address] | [place] [address] | | | [facility] | | | | | [...] | | LABORATORY | | | | [facility] [address] [place], | | [place] | | | | [place] [address] | | | | + + + + + + + + | Specimen | + + | Blood specimen | | (specimen) | + + + + + + + | Performing | Address | City/State/Zipcode | Phone Number | | Organization | | | | + + + + + | JIMJOSE ADora LIZ | [address] | [place] [address] | | | [facility] | | | | | [...] | | | POC | Performed by [facility] [address] | | SACRED | | | | [address] [place] | | HEART | | | | [address] | | MEDICAL | | | | [...] + + | B[facility] | [address] | [place] [address] | | | [facility] | | | | | [...] | | | POC | Performed by [facility] [address] | | SACRED | | | | [address] [place], [place] | | HEART | | | | [address] | | MEDICAL | | | | [...] | JIMJOSE ADora AGUSTO | [address] | [place] [address] | | | [facility] | | | | | [...] | PROVIDENCE | | | POC | [facility] [address], | | SACRED | | | | [place] [address] | | HEART | | | |Performed by [facility] [address], [place] [address] | | MEDICAL | | | | [...] [address] | [place] [address] | | | [facility] | | | | | [...] | 14 (L)Comment: eGFR<60 | >=90 | PROVIDERIE | | | GFR | consistent with impaired | mL/min/1.73m2 | SACRED | | | | kidney function.For | | HEART | | | | Americans, | | MEDICAL | | | | multiply the calculated | | CENTER | | | | GFR by 1.210Performed by | | LABORATORY | | | | [facility] [address], | | CERNER | | | | [place] [address] | | | | + + + + + + + + | Specimen | + + | Blood specimen | | (specimen) | + + + + + + + | Performing | Address | City/State/Zipcode | Phone Number | | Organization | | | | + + + + + | [facility] | [address] | [place] [address] | | | [facility] | | | | | [...] PROVIDE NCE | | | | by [facility] [address], | | SACRED | | | | [place] [address] | | HEART | | | |Performed by [facility] [address], [place] [address] | | MEDICAL | | | | [...] + + | B[facility] | [address] | [place] [address] | | | [facility] | | | | | [...] | | | POC | Performed by [facility] [address] | | SACRED | | | | [address], [place] | | HEART | | | | [address] | | MEDICAL | | | | [...] [address] | [place] [address] | | | [facility] MEDICAL CENTER | [...] | | | POC | Performed by [facility] [address] | | SACRED | | | | [address] [place] | | HEART | | | | [address] | | MEDICAL | | | | [...] + + | B[facility] | [address] | [place] [address] | | | [facility] | | | | | [...] | PROVIDENCE | | | POC | [facility] [address], | | SACRED | | | | [place] [address] | | HEART | | | |Performed by [facility] [address], [place] [address] | | MEDICAL | | | | [...] Ave. | [place] | | | [facility] | | | | | [...] | RIMAE | | | POC | [facility] [address], | | SACRED | | | | [place] | | HEART | | | |Performed by [facility] [address], [place] [address] | | MEDICAL | | | | [...] + + | [facility] | [address] | [place] [address] | | | [facility] | | | | | [...] by | | | | | | [facility] [address], | | | | | | [place] [address] | | | | + + + + + + + + | Specimen | + + | Blood specimen | | (specimen) | + + + + + + + | Performing | Address | City/State/Zipcode | Phone Number | | Organization | | | | + + + + + | JIMRENUKA LIZ | [address] | [place] [address] | | | [facility] | | | | | [...] | | | POC | Performed by [facility] [address] | | SACRED | | | | [address] [place] | | HEART | | | | [address] | | MEDICAL | | | | [...] [address] | [place] [address] | | | [facility] | | | | | [...] | | | POC | Performed by [facility] [address] | | SACRED | | | | [address], [place] | | HEART | | | | [address] | | MEDICAL | | | | [...] + | JIMJOSE ADora AGUSTO | [address] | [place] [address] | | | [facility] | | | | | [...] | | | POC | Performed by [facility] [address] | | SACRED | | | | [address] [place] | | HEART | | | | [address] | | MEDICAL | | | | [...] SACRED | [address] | [place] [address] | | | [facility] | | | | | [...] BETH | | | | Performed by [facility] [address] | | AGUSTO | | | | [address], [place] | | HEART | | | | [address] | | MEDICAL | | | | [...] | JIMJOSE ADora LIZ | [address] | [place] [address] | | | [facility] | | | | | [...] | | | POC | Performed by [facility] [address] | | SACRED | | | | [address] [place], [place] | | HEART | | | | [address] | | MEDICAL | | | | [...] + + | PROVIDENCE SACRED | [address] | [place] [address] | | | [facility] | | | | | [...] by | | | | | | [facility] [address], | | | | | | [place] [address] | | | | + + + + + + + + | Specimen | + + | Blood specimen | | (specimen) | + + + + + + + | Performing | Address | City/State/Zipcode | Phone Number | | Organization | | | | + + + + + | [facility] | [address] | [place] [address] | | | [facility] | | | | | [...] | | LABORATORY | | | | [facility] [address] [place], | | [place] | | | | [place] [address] | | | | + + + + + + + + | Specimen | + + | Blood specimen | | (specimen) | + + + + + + + | Performing | Address | City/State/Zipcode | Phone Number | | Organization | | | | + + + + + | [facility] | [address] | [place] [address] | | | [facility] | | | | | LABORATORY [...] PROVIDE NCE | | | | by [facility] [address], | | SACRED | | | | [place] [address] | | HEART | | | |Performed by [facility] [address], [place] [address] | | MEDICAL | | | | [...] LIZ | [address] | [place] [address] | | | HEART [facility] | | | | | LABORATORY [...] CE | | | B-12 | by [facility] [address], | | SACRED | | | | [place] [address] | | HEART | | | |Performed by [facility] [address], [place] [address] | | MEDICAL | | | | [...] + + | [facility] | [address] | [place] [address] | | | [facility] | | | | | [...] by | | | | | | [facility] [address], | | | | | | [place] [address] | | | | + + + + + + + + | Specimen | + + | Blood specimen | | (specimen) | + + + + + + + | Performing | Address | City/State/Zipcode | Phone Number | | Organization | | | | + + + + + | BETH LIZ | [address] | [place] [address] | | | [facility] | | | | | [...] | | | POC | Performed by [facility] [address] | | SACRED | | | | [address] [place] | | HEART | | | | [address] | | MEDICAL | | | | [...] [address] | [place] [address] | | | [facility] | | | | | [...] | | | POC | Performed by [facility] [address] | | SACRED | [...] | | | POC | Performed by [facility] [address] | | SACRED | | | | [place] | | HEART | | | | [address] | | MEDICAL | | | | [...] + + | [facility] | [address] | [place] [address] | | | [facility] | | | | | [...] PROVIDE NCE | | | | by [facility] [address], | | SACRED | | | | [place] [address] | | HEART | | | |Performed by [facility] [address], [place] [address] | | MEDICAL | | | | [...] + + | [facility] | [address] | [place] [address] | | | [facility] | | | | | [...] Performed | 0.0 - 1.5 mg/dL | JIMN CE | | | | by [facility] [address], | | SACRED | | | | [place] [address] | | HEART | | | |Performed by [facility] [address], [place] [address] | | MEDICAL | | | | [...] + + | RIMAE AGUSTO | [address] | [place] [address] | | | [facility] | | | | | [...] | | LABORATORY | | | | [facility] [address], | | [place] | | | | [place] [address] | | | | + + + + + + + + | Specimen | + + | Blood specimen | | (specimen) | + + + + + + + | Performing | Address | City/State/Zipcode | Phone Number | | Organization | | | | + + + + + | JIMRENUKA LIZ | [address] | [place] [address] | | | [facility] | | | | | [...] | | | POC | Performed by [facility] [address] | | SACRED | | | | [address] [place] | | HEART | | | | [address] | | MEDICAL | | | | [...] + | JIMJOSE ADora AGUSTO | [address] | [place] [address] | | | [facility] | | | | | [...] | | | POC | Performed by [facility] [address] | | SACRED | | | | [address] [place] [place] | | HEART | | | | [address] | | MEDICAL | | | | [...] SACRED | [address] | [place] [address] | | | [facility] | | | | | [...] | SACRED | | | Total | [address] | | HEART | | | | [address] [place], [place] | | MEDICAL | | | | [phone] Daniel | | CENTER | | | | Lauro HOLDEN [phone] | | LABORATORY | | | | [...] + + | B[facility] | [address] | [place] [address] | | | [facility] | | | | | [...] | SACRED | | | | by [facility] [address], | | HEART | | | | [place] [address] | | MEDICAL | | | | [...] SACRED | [address] | [place] [address] | | | [facility] | | | | | [...] | SACRED | | | | by [facility] [address], | | HEART | | | | [place] [address] | | MEDICAL | | | | [...] + + | BETH LIZ | [address] | [place] [address] | | | [facility] | | | | | [...] | MEDICAL | | | | by [facility] [address], | | CENTER | | | | [place] [address] | | LABORATORY | | | |Performed by [facility] [address], [place] [address] | | CERNER | | | | [...] + | [facility] | [address] | [place] [address] | | | [facility] | | | | | [...] | | | POC | Performed by [facility] [address] | | SACREVANS | | | | [place] | | HEART | | | | [address] | | MEDICAL | | | | [...] + + | BETH LIZ | [address] | [place] [address] | | | [facility] | | | | | [...] | | | POC | Performed by [facility] [address] | | SACRED | | | | [address] [place] | | HEART | | | | [address] | | MEDICAL | | | | [...] SACRED | [address] | [place] [address] | | | HE[facility] MEDICAL CENTER | [...] CENTER | | | | 3.5Performed by [facility] [address] | | LABORATORY | | | | [address]. [place] | | [place] | | | | [address] | | | | + + + + + + + + | Specimen | + + | Blood specimen | | (specimen) | + + + + + + + | Performing | Address | City/State/Zipcode | Phone Number | | Organization | | | | + + + + + | BETH LIZ | [address] | [place] [address] | | | [facility] | | | | | [...] | SACRED | | | Granulocyte | [place] | | HEART | | | s | [phone] | | MEDICAL | | | | [...] + | BETH [facility]Z | [address] [place] [address]. | [place] [address] | | | [facility] | | | | | [...] | | LABORATORY | | | | [facility] [address], | | [place] | | | | [place] [address] | | | | + + + + + + + + | Specimen | + + | Blood specimen | | (specimen) | + + + + + + + | Performing | Address | City/State/Zipcode | Phone Number | | Organization | | | | + + + + + | [facility] | [address] | [place] [address] | | | [facility] | | | | | [...] | | | | First dose on [facility] 03/30/19 at 1130 | | AM PDT [...] scheduled: AC, NPO, Daytime | | | 1803-0861 Use NIGHT DOSE for | | | doses scheduled: HS, 3AM, | | | Nighttime 2516-9241 If the BG is | | | [...]
--- OUTSIDE RECORDS SUMMARY | ~2019-07-27 | XMS | Encounter Summary ---
Demographics + + + | Address | [address] | | | [place] [address] | + + + | Home Phone [...] | Author | [facility] | | | and [place] | + + + | Organization | [facility] | | | and [place] | + + + | Address | Unknown | + + + | Phone | Unavailable | + + + Support + + + + + | Name | Relationship | Address | Phone | + + + + + | India Tilley | ECON | [address] | | | | | [place], [place] | | | | | [address] | | + + + + + | Yina La | ECON | Unknown | | + + + + + | Yina Peterson | ECON | Unknown | | + + + + + | Leatha Casillas | ECON | Unknown | | + + + + + Care Team Providers + +------+ + | Care Mica Laminating Machine Feeder Name | Role | Phone | + [...] | (Primary Dx); | | | | [place], [place] | [place] [address] | Arthritis; Other | | | | [address] | [phone] | back pain; History | | | | [phone] | | of blood clots; | | [...]
--- OUTSIDE RECORDS SUMMARY | ~2019-07-27 | XMS | Encounter Summary ---
Demographics + + + | Address | [address] | | | [place] [address] | + + + | Home Phone [...] + + + | Author | [facility] | | | and [place]al[place]it[place] | + + + | Organization | [facility] | | | and [place] | + + + | Address | Unknown | + + + | Phone | Unavailable | + + + Support + + + + + | Name | Relationship | Address | Phone | + + + + + | India Tilley | ECON | [address] | | | | | [place], [place] | | | | | [address] | | + + + + + | Yina La | ECON | Unknown | | + + + + + | Yina Peterson | ECON | Unknown | | + + + + + | Leatha Casillas | ECON | Unknown | | + + + + + Care Team Providers + +------+ + | Care Post Anesthesia Care Unit Nurse Name | Role | Phone | + +------+ + PCP | Unavailable | + +------+ + Encounter Details +--------+ + + + + | Date | Type | Department | Care Team | Description | +--------+ + + + + | 04/16/ | Abstract | [facility] | Darlin Moseley W, | | | 2016 | | NEPHROLOGY [address] | | | | | [address] | [address] [facility] | | | | | [place] | [place] [address] | | | | | [address] | [phone] | | | | | [phone] | | | +--------+ + + + [...]
--- OUTSIDE RECORDS SUMMARY | ~2019-07-27 | XMS | Encounter Summary ---
Demographics + + + | Address | [address] | | | [place] [address] | + + + | Home Phone [...] + | Author | [facility] | | | and [place] | + + + | Organization | [facility] | | | and [place] | + + + | Address | Unknown | + + + | Phone | Unavailable | + + + Support + + + + + | Name | Relationship | Address | Phone | + + + + + | India Tilley | ECON | [phone] | | | | | [place], [place] | | | | | [address] | | + + + + + | Yina La | ECON | Unknown | | + + + + + | Yina Peterson | ECON | Unknown | | + + + + + | Leatha Casillas | ECON | Unknown | | + + + + + Care Team Providers + +------+ + | Care Sign Artist Name | Role | Phone | + +------+ + PCP | Unavailable | + +------+ + Encounter Details +--------+ + + + + | Date | Type | Department | Care Team | Description | +--------+ + + + + | 11/08/ | Imaging | [facility] | Provider, | | | 2018 | Exam | MED CTR EXTERNAL | [address] | | | | | IMAGING | [address] | | | | | [phone] | [place] [address] | | +--------+ + + + + [...] for comparison only - no result from [place]. | [facility] | + + + + +---------+ + + | Performing | Address | City/State/Zipcode | Phone Number | | Organization | | | | + +---------+ + + | [facility] | | | | + +---------+ + + documented in this encounter Visit Diagnoses Not on filedocumented in this encounter"
--- OUTSIDE RECORDS SUMMARY | ~2019-07-27 | XMS | Encounter Summary ---
Demographics + + + | Address | [address] | | | [place] [address] | + + + | Home Phone [...] Author | [facility] | | | and [place] | + + + | Organization | [facility] | | | and [place] | + + + | Address | Unknown | + + + | Phone | Unavailable | + + + Support + + + + + | Name | Relationship | Address | Phone | + + + + + | India Tilley | ECON | [phone] | | | | | [place], [place] | | | | | [address] | | + + + + + | Yina La | ECON | Unknown | | + + + + + | Yina Peterson | ECON | Unknown | | + + + + + | Leatha Casillas | ECON | Unknown | | + + + + + Care Team Providers + +------+ + | Care Fire Watcher Name | Role | Phone | + +------+ + PCP | Unavailable | + +------+ + Encounter Details +--------+ + + + + | Date | Type | Department | Care Team | Description | +--------+ + + + + | 07/23/ | Hospital | [facility] | Patricia, | | | 2006 - | Encounter | MED CTR CANCER | Venkatesh Forte MD [address] | | | | | [place] [address] | [facility] | | | 08/12/ | | [place] | [place] [address] | | | 2006 | | [address] | [phone] | | | | | [phone] | | | +--------+ + + + [...]
--- OUTSIDE RECORDS SUMMARY | ~2019-07-27 | XMS | Encounter Summary ---
Demographics + + + | Address | [address] | | | [place] [address] | + + + | Home Phone [...] Author | [facility] | | | and [place] | + + + | Organization | [facility] | | | and [place] | + + + | Address | Unknown | + + + | Phone | Unavailable | + + + Support + + + + + | Name | Relationship | Address | Phone | + + + + + | India Tilley | ECON | [address] | | | | | [place], [place] | | | | | [address] | | + + + + + | Yina La | ECON | Unknown | | + + + + + | Yina Peterson | ECON | Unknown | | + + + + + | Leatha Casillas | ECON | Unknown | | + + + + + Care Team Providers + +------+ + | Care Butter Printer Name | Role | Phone | + [...] [address] | | | | | [address] [facility] | [place] | | | | | [place] | [address] | | | | | [address] | | | | | | [phone] | | | +--------+--------+ + + + [...]
--- OUTSIDE RECORDS SUMMARY | ~2019-07-27 | XMS | Encounter Summary ---
Demographics + + + | Address | [address] | | | [place] [address] | + + + | Home Phone [...] + | Author | [facility] | | | and [place] | + + + | Organization | [facility] | | | and [place] | + + + | Address | Unknown | + + + | Phone | Unavailable | + + + Support + + + + + | Name | Relationship | Address | Phone | + + + + + | India Tilley | ECON | [address] | | | | | [place], [place] | | | | | [address] | | + + + + + | Yina La | ECON | Unknown | | + + + + + | Yina Peterson | ECON | Unknown | | + + + + + | Leatha Casillas | ECON | Unknown | | + + + + + Care Team Providers + +------+ + | Care Hospital Internship Name | Role | Phone | + [...] + + | 02/03/ | Office | [facility] | Scott Koroma, | Postop check | | 2019 | Visit | ORTHOPEDIC SURGERY | MD [address] | (Primary Dx) | | | | [address] [facility] | [place] | | | | | [place] | [address] | | | | | [address] | | | | | | [phone] | | | +--------+---------+ + + + [...]
--- OUTSIDE RECORDS SUMMARY | ~2019-07-27 | XMS | Encounter Summary ---
Demographics + + + | Address | [address] | | | [place] [address] | + + + | Home Phone | | + + + | Preferred Language | Unknown | + + + | Marital Status | Single | + + + | Quaker Affiliation | Unknown | + + + | Race | Unknown | + + + | Ethnic Group | Unknown | + + + Author + + + | Author | [facility] | | | and [place] | + + + | Organization | [facility] | | | and [place] | + + + | Address | Unknown | + + + | Phone | Unavailable | + + + Support + + + + + | Name | Relationship | Address | Phone | + + + + + | India Tilley | ECON | [address] | | | | | [place], [place] | | | | | [address] | | + + + + + | Yina La | ECON | Unknown | | + + + + + | Yina Peterson | ECON | Unknown | | + + + + + | Leatha Casillas | ECON | Unknown | | + + + + + Care Team Providers + +------+ + | Care Order Processor Name | Role | Phone | + [...] + + | 10/06/ | Telephone | [facility] | Gopi Muñoz | Nephrology | | 2018 | | NEPHROLOGY [address] | M, DO [address] | Appointment | | | | [address] | [place] | | | | | [place], [place] | [place] | | | | | [address] | [address] | | | | | [phone] | | | +--------+ + + + [...]
--- OUTSIDE RECORDS SUMMARY | ~2019-07-27 | XMS | Encounter Summary ---
Demographics + + + | Address | [address] | | | [place] [address] | + + + | Home Phone [...] + | Author | [facility] | | | and [place] | + + + | Organization | [facility] | | | and [place] | + + + | Address | Unknown | + + + | Phone | Unavailable | + + + Support + + + + + | Name | Relationship | Address | Phone | + + + + + | India Tilley | ECON | [address] | | | | | [place], [place] | | | | | [address] | | + + + + + | Yina La | ECON | Unknown | | + + + + + | Yina Peterson | ECON | Unknown | | + + + + + | Leatha Casillas | ECON | Unknown | | + + + + + Care Team Providers + +------+ + | Care Sales Office Assistant Name | Role | Phone | + +------+ + PCP | Unavailable | + +------+ + Encounter Details +--------+ + + + + | Date | Type | Department | Care Team | Description | +--------+ + + + + | 09/23/ | Hospital | [facility] | | | | 2006 - | Encounter | MED CTR CANCER | | | | | | CENTER [facility] [address] | | | | 10/13/ | | [place] | | | | 2006 | | [address] | | | | | | [phone] | | | +--------+ + + + [...]
--- OUTSIDE RECORDS SUMMARY | ~2019-07-27 | XMS | Encounter Summary ---
Demographics + + + | Address | [address] | | | [place] [address] | + + + | Home Phone [...] | Author | [facility] | | | and [place] | + + + | Organization | [facility] | | | and [place] | + + + | Address | Unknown | + + + | Phone | Unavailable | + + + Support + + + + + | Name | Relationship | Address | Phone | + + + + + | India Tilley | ECON | [address] | | | | | [place], [place] | | | | | [address] | | + + + + + | Yina La | ECON | Unknown | | + + + + + | Yina Peterson | ECON | Unknown | | + + + + + | Leatha Casillas | ECON | Unknown | | + + + + + Care Team Providers + +------+ + | Care Vice President Of Instruction Name | Role | Phone | + +------+ + PCP | Unavailable | + +------+ + Encounter Details +--------+ + + + + | Date | Type | Department | Care Team | Description | +--------+ + + + + | 11/08/ | Imaging | [facility] | Provider, | | | 2018 | Exam | MED CTR EXTERNAL | [address] | | | | | IMAGING | [address] | | | | | [phone] | [place] [address] | | +--------+ + + + + [...] for comparison only - no result from [place]. | [facility] | + + + + +---------+ + + | Performing | Address | City/State/Zipcode | Phone Number | | Organization | | | | + +---------+ + + | [facility] | | | | + +---------+ + + documented in this encounter Visit Diagnoses Not on filedocumented in this encounter"
--- OUTSIDE RECORDS SUMMARY | ~2019-07-27 | XMS | Encounter Summary ---
Demographics + + + | Address | [address] | | | [place] [address] | + + + | Home Phone [...] | Author | [facility] | | | and [place] | + + + | Organization | [facility] | | | and [place] | + + + | Address | Unknown | + + + | Phone | Unavailable | + + + Support + + + + + | Name | Relationship | Address | Phone | + + + + + | India Tilley | ECON | [address] | | | | | [place], [place] | | | | | [address] | | + + + + + | Yina La | ECON | Unknown | | + + + + + | Yina Peterson | ECON | Unknown | | + + + + + | Leatha Casillas | ECON | Unknown | | + + + + + Care Team Providers + +------+ + | Care Pulp Mill Operator Name | Role | Phone | + +------+ + | Dangelo Renato Barr DIPESH | PCP | | + +------+ + Encounter Details +--------+ + + + + | Date | Type | Department | Care Team | Description | +--------+ + + + + | 07/12/ | Telephone | [facility] | [facility] [place] | | | 2019 | | CENTER INTRA OP | MD [address] | | | | | [address] | [place] | | | | | [place], [place] | [place] [address] | | | | | [address] | [phone] | | | | | [phone] | | | +--------+ + + + [...]
--- OUTSIDE RECORDS SUMMARY | ~2019-07-27 | XMS | Encounter Summary ---
Demographics + + + | Address | [address] | | | [place] [address] | + + + | Home Phone [...] + | Author | [facility] | | | and [place]it[place] | + + + | Organization | [facility] | | | and [place] | + + + | Address | Unknown | + + + | Phone | Unavailable | + + + Support + + + + + | Name | Relationship | Address | Phone | + + + + + | India Tilley | ECON | [address] | | | | | [place], [place] | | | | | [address] | | + + + + + | Yina La | ECON | Unknown | | + + + + + | Yina Peterson | ECON | Unknown | | + + + + + | Leatha Casillas | ECON | Unknown | | + + + + + Care Team Providers + +------+ + | Care Od Grinder Operator Name | Role | Phone | + +------+ + PCP | Unavailable | + +------+ + Reason for Visit + + + | Reason | Comments | + + + | New Patient | AVF creation | + + + Evaluate & Treat (Routine) +--------+ + [...] | Surgery | kidney | DO [address] | [address] | | | | | disease, | Sweta, Jorden | [address] | | | | | stage V | [address] | [place], | | | | | ([facility]) | [place] | [place] [address] | | | | | | [address] | Phone: | | | | | | Phone: | [phone] | | | | | | [phone] | Fax: | | | | | | Fax: | [phone] | | | | | | [phone] | | +--------+ + + + + + Encounter Details +--------+---------+ + + + | Date | Type | Department | Care Team | Description | +--------+---------+ + + + | 12/30/ | Office | [facility] | Santos Stephenson | Chronic kidney | | 2018 | Visit | SURGERY [address] | MD Kinga, FACS [address] | disease, stage V | | | | [place], [place] | [address] [facility] | (HCC) (Primary Dx) | | | | [address] | [place] [address] | | | | | [phone] | [phone] | | | | | | | [...] + + + | Blood Pressure | 84/48 | 12/30/2017 10:15 AM | | | | | PDT | | + + + + + | Pulse | 72 | 12/30/2017 10:15 AM | | | | | PDT | | + + + + + | Temperature | 36.9 C (98.5 F) | 12/30/2017 10:15 AM | | | | | PDT | | + + + + + | Respiratory Rate | - | - | | + + + + + | Oxygen Saturation | 98% | 12/30/2017 10:15 AM | | | | | PDT | | + + + + + | Inhaled Oxygen | - | - | | | Concentration | | | | + + + + + | Weight | 76.9 kg (169 lb 8.5 | 12/30/2017 10:15 AM | | | | oz) | PDT | | + + + + + | Height | 172.7 cm (5' 8") | 12/30/2017 10:15 AM | | | | | PDT | | + + + + + | Body Mass Index | 25.78 | 12/30/2017 10:15 AM | | | | | PDT | | + + + + + documented in this encounter Patient Instructions Patient Instructions Awa Hart RN - 12/30/2017 10:00 AM PDTNO LASIX OR LOSARTAN 24 HO URS PRIOR TO SURGERY DO NOT EAT OR DRINK ANYTHING AFTER MIDNIGHT before your surgery. This means no coffee, reva er, juice or toast on the morning of your surgery. The only exception is essential medicine s with a small sip of water (or just enough to get the pills down safely). Please use the antibacterial wipes the night before your surgery to help prevent post-op in fections. Follow instructions listed in brochure. On 01/04/18 check in at Same Day Surgery (corner of [address]) at 12:00pm. Your surgery is called AV Fistula creation and tunneled dialysis catheter placement. It will start about 2:00pm and will finish about 4:00pm. You will be ready to go home later that day. Anesthesia type recommended: General General IV Sedation with local anesthesia (MAC) IV Sedation Other MAKE ARRANGEMENTS FOR A RESPONSIBLE ADULT TO DRIVE YOU HOME. If you have any questions, please call at . Your nurse's name is Awa. Your surgeon's name is Dr. Stephenson. I look forward to your having a safe, successful and comfortable surgery. Sign up for [facility] if you want easy access to your medical information online. You can: Review your medications, immunizations, allergies and medical history. View details of your past and upcoming appointments. Sign up for [facility] if you want easy access to your medical information online. Only you, your doctor and your health care team are permitted to view the information sent through [employer]. Through [facility] you can: ? Review your medications, immunizations, allergies and medical history. ? View details of your past and upcoming appointments. ? Receive test results online no waiting for a phone call or letter ? Review health education topics and discharge instructions provided by your physician. ? Send secure emails to your healthcare team. ? Request renewals of your medications online ? Link your family s accounts to yours for convenient access to appointments, immunizatio n records, growth charts and more. Below are the different ways you can sign up for [facility]: ? The first way is to get online at: [email or web address] and sign up directly throug h the website prior to your appointment with us. You can call [phone] ([phone]) if you have any questions or need assistance. ? The second way is through the [facility] [employer]mila which can be accessed with any smart phone. Ju st go to your lyudmila store and look up [employer]. ? The third way is to do it while you wait in the room for the doctor at your appointment. The nurse is available if you have any questions or need assistance. You will need the following information to sign up: Email address: User name: Password: Password must be at least 8 characters long, less than 20 characters, and it must have at l east 1 upper case letter and 1 lower case letter as well as at least 1 number. documented in this encounter Progress Notes Santos Stephenson MD, FACS - 12/30/2017 10:00 AM PDTFormatting of this note might be diff erent from the original. Surgery Note Referring Provider: Gopi Muñoz DO Patient Identification: Estefani Tilley 1945 Is a 72 y.o. female , a patien t of Francisca Womack PA-C. Patient is here alone. Chief Complaint: Chief Complaint Patient presents with New Patient AVF creation HISTORY OF PRESENT ILLNESS Patients Preliminary Questionaire: Have you started dialysis yet? Yes How many years have been dialyzed? 2 months Are you a candidate for kidney transplantation? unsure Who is your Primary Care ? Francisca Womack PA-C Who is your Windows Administrator/Kidney Specialist ? Dr. Muñoz When was the current dialysis access placed? In the hospital What problems are there with the current dialysis access? Tunneled catheter not functioni ng Patient currently being dialyzed via RIGHT tunneled IJ catheter. Dr Muñoz states the ca theter has slow, but adequate flow. Physician notes: Patient arrives today to consult in AV Fistula creation. She had a tunneled hemodialysis ca theter placed by Dr. Leo on 11/01/2017. She states she had dialysis yesterday and was tex d her tunneled catheter is poorly functioning. Patient states she is LEFT hand dominant, she would like the AV fistula placed in her RIGHT arm. She denies pain in hand or fingers. A dmits to arthritis pain In her joints. She has dialysis on Wednesday, Wednesday and Fridays in [place]. She states she has had breast cancer, had a LEFT side mastectomy. CARDIAC: Denies DE, chest pain or tightness. RISK: Never smoker, current 38 year diabetic. Family Hx of diabetes. States mother had kid cedric failure NICO: Patient has previously been diagnosed with sleep apnea. She had a sleep study performe d at [facility] but does not wear a CPAP machine DATA/RECENT IMAGING EXAM:VAS UPPER EXTREMITY VEIN MAPPING BILATERAL FINDINGS/IMPRESSION - Please refer to the scanned in image 4 for opacification in sizes. No visible thrombi. Francisca Womack PA-C's notes were not reviewed in clinic today. PAST MEDICAL HISTORY Past Medical History: Diagnosis Date Anemia Arthritis Back pain Breast cancer (HCC) Cancer (HCC) Diabetes (HCC) Heart disease History of blood clots Hypercholesteremia Hypertension Seasonal allergies Past Surgical History: Procedure Laterality Date APPENDECTOMY EYE SURGERY 2009 HYSTERECTOMY MASTECTOMY 2006 left ear NOSE SURGERY 2009 SHUNT PLACEMENT/INSERTION N/A 11/08/2017 Procedure: Tunneled Hemodialysis Catheter Placement; Surgeon: Nora Leo MD; Location : [facility] OR Allergies Allergen Reactions Lisinopril Pt states she does not remember what was the reaction she had to lisinopril. I asked her if it gave her a cough and she said "I cant remember, maybe it made me sick to my stomach". Naproxen Medications: Outpatient Encounter Prescriptions as of 12/30/2017 Medication Sig Dispense Refill [DISCONTINUED] Alcohol Swabs 70 % PADS by Does not apply route. Use 1 to wipe area as d irected. amLODIPine (NORVASC) 10 MG tablet Take 1 tablet by mouth Daily. 50 tablet 0 artificial tears (AKWA TEARS) ophthalmic ointment Place into both eyes every hour as n eeded for Dry Eyes. atorvaSTATin (LIPITOR) 20 mg tablet Take 20 mg by mouth nightly. calcium-vitamin D (CALCIUM 600-D) 600 mg-400 units per tablet Take 1 tablet by mouth 2 times daily. [DISCONTINUED] Chlorhexidine Gluconate 4 % SOLN Apply topically. Use one capful mixed in 1 pint of water and scrub wound daily or as directed. [DISCONTINUED] docusate sodium (COLACE) 100 MG capsule Take 100 mg by mouth Twice maite y as needed for Constipation. 30 capsule 0 epoetin karthik (EPOGEN, PROCRIT) 10,000 units/mL injection Inject 1 mL under the skin Thr ee times a week. 0 furosemide (LASIX) 80 mg tablet Take 1 tablet by mouth Daily. 50 tablet 0 gabapentin (NEURONTIN) 100 mg capsule Take 200 mg by mouth 2 times daily. Morning and e vening Glucose Blood (TRUE METRIX BLOOD GLUCOSE TEST ) by In Vitro route. [DISCONTINUED] HYDROcodone-acetaminophen (NORCO) 5-325 mg per tablet Take 1 tablet by m outh every 8 hours as needed for Pain. For surgical pain, wean off medication 8 tablet 0 [DISCONTINUED] hydrophilic ointment Apply topically as needed for Dry Skin. Apply a sm all amount to affected area. labetalol (NORMODYNE) 200 mg tablet Take 1 tablet by mouth 2 times daily. (Patient not taking: Reported on 11/02/2017) 100 tablet 0 [DISCONTINUED] Lancets MISC by Does not apply route. Use 1 lancet for blood testing as directed. levothyroxine (SYNTHROID, LEVOTHROID) 75 MCG tablet Take 75 mcg by mouth every morning (before breakfast). loratadine (CLARITIN) 10 mg tablet Take 1 tablet by mouth Daily as needed for Allergies . 30 tablet losartan (COZAAR) 25 mg tablet Take 1 tablet by mouth Daily. 50 tablet 0 [DISCONTINUED] Misc. Throat Products (OASIS MOISTURIZING MOUTHWASH MT) Take 1 oz by chitra th 2 times daily. [DISCONTINUED] olopatadine (PATANOL) 0.1% ophthalmic solution Place 1-2 drops into both eyes 2 times daily. pantoprazole (PROTONIX) 40 mg tablet Take 40 mg by mouth every morning (before breakfas t). [DISCONTINUED] senna (SENOKOT) 8.6 mg tablet Take 1 tablet by mouth Twice daily as nee ded for Constipation. 120 tablet 0 [DISCONTINUED] sertraline (ZOLOFT) 100 mg tablet Take 1 tablet by mouth Daily. 45 table t 0 UNABLE TO FIND Med Name: Cadoexomer Iodine 0.9 % gel. Apply a small amount to affected area as directed during dressing changes. No facility-administered encounter medications on file as of 12/30/2017. Family History Problem Relation Age of Onset Diabetes Other grandfather Diabetes Other grandmother Cancer Sister Social History: She reports that she has never smoked. She has never used smokeless tobacco. She reports th at she does not drink alcohol or use drugs. REVIEW of SYSTEMS General: [x]Weight loss/gain (over 10 lbs) [x]Fever/chills []Night sweats Hematologic: []Bleeding/bruising tendencies []Blood transfusion [x]Anemia Heent: []Vision loss []Hearing loss [x]Sinus problems/nose bleeds []Hoarseness Respiratory: []Wheezing []Shortness of breath [x]Cough []Spitting up blood []On oxygen []Use CPAP machine Cardiac: []Chest pain []Palpitations/heart racing []Swelling of ankles/hands []Unusual shortness of breath []Difficulty sleeping flat Gastrointestinal: []Nausea/vomiting []Difficulty swallowing []Heartburn []Loss of appetite []Abdominal pain []Stomach Ulcers []Diarrhea []Constipation []Pollo k or bloody stools Vascular: []Strokes/TIA's []Fainting []Difficulty with speech []Leg cramps [x]Pain in feet/legs at rest [x]Foot ulcers/ sores []Varicose veins []Phlebitis/blood clots Musculoskeletal: [x]Joint stiffness/swelling [x]Joint pain [x]Back pain [x]Arthritis []Gout Urologic: []Blood in urine []Frequent urination at night []Burning/painful urination []Kidney stones []Difficulty urination []Sexual difficulties Neuro/Psychiatric: []Headaches []Seizures [x]Depression []Anxiety attacks []Memory loss or confusion PHYSICAL EXAM BP (!) 84/48 | Pulse 72 | Temp 36.9 C (98.5 F) (Temporal) | Ht 1.727 m (5' 8") | Wt 76.9 kg (169 lb 8.5 oz) | SpO2 98% | BMI 25.78 kg/m Body mass index is 25.78 kg/m. General Appearance Alert, cooperative, no distress, appears stated age Head Normocephalic, without obvious abnormality, atraumatic Eyes PERRL, conjunctiva/corneas clear, vision adequate bilateral Ears Adequate hearing Neck Supple, symmetrical, no adenopathy, no neck bruits Lungs Breath sound are equal bilaterally, no wheezes or crackles Chest Wall/Back No tenderness or deformity. No CVA tenderness. LEFT mastectomy well healed scar. Heart Regular rate and rhythm, no murmur Upper Extremities Extremities normal, atraumatic, no cyanosis, clubbing or edema. RIGHT arm small vein visible at the elbow Palpable Upper extremity Pulses Brachial Radial Ulnar LEFT RIGHT 2 1 1 Lower extremitiy Extremities normal, atraumatic, no cyanosis, clubbing, or edema No gangrene or ulceration Capillary refill Palpable Pulses*: Femoral Popliteal Dorsalis pedis Post tibial LEFT 2+ RIGHT 2+ Ultrasound See report Neurologic Cranial nerves II-XII grossly intact, UE motor ULTRASOUND REPORT: PATIENT NAME : Estefani Tilley EQUIPMENT: [employer] with 10-5 mHertz probe. INDICATIONS: Dialysis access evaluation FINDING: RIGHT cephalic vein measures 2.0 mm RIGHT basilic vein measures 4.0 mm RIGHT brachial artery measures 3.1 mm. Normal bifurcation at the brachail artery Somewhat small radial artery. IMPRESSION: Adequate RIGHT basilic vein for AVF. Lab Results Component Value Date NA 135 (L) 11/09/2017 K 3.2 (L) 11/09/2017 CL 99 11/09/2017 CO2 27 11/09/2017 BUN 29 (H) 11/09/2017 CREA 2.99 (H) 11/09/2017 Lab Results Component Value Date WBC 8.9 11/09/2017 HGB 8.9 (L) 11/09/2017 HCT 26.3 (L) 11/09/2017 MCV 89.6 11/09/2017 PLT 182 11/09/2017 Lab Results Component Value Date INR 1.02 10/01/2017 PROTIME 13.3 10/01/2017 ASSESSMENT/PLAN 1. Chronic kidney disease, stage V (HCC) Recommend we proceed with RIGHT transposed basilic vein to proximal radial artery fistula c reation and replacement of RIGHT IJ Tunneled hemodialysis catheter. The indications, alternatives, risks, and benefits have been discussed with the patient in detail. Risks include bleeding, infection, damage to surrounding structures, failure to mat ure, arterial steal, hand dysfunction, additional procedures, life-threatening events, and u nforeseen complications. I have provided time for the patient to ask any questions they may have. Will plan surgery for January 04, 2018 Return to clinic Post op. Santos Stephenson MD, FACS Vascular and General Surgery I Karena Valle am acting as a scribe on behalf of, and in the presence of Santos kulkarni MD, FACS. I have reviewed and edited this note. Karena Valle CMA 12/30/17 I, Santos Stephenson MD, FACS, personally performed the services described in this docume ntation, as scribed by Karena Valle CMA in my presence, and it is both accurate and complet e. Karena Valle CMA 12/30/2017 10:45 CC: Francisca Womack PA-C, Gopi Muñoz DO documented in this enc ounter Plan of Treatment Not on filedocumented as of this encounter Visit Diagnoses + + | Diagnosis | + + | Chronic kidney disease, stage V (HCC) - Primary Chronic kidney disease, Stage V | + + documented in this encounter
--- OUTSIDE RECORDS SUMMARY | ~2019-07-27 | XMS | Encounter Summary ---
Demographics + + + | Address | [address] | | | [place] [address] | + + + | Home Phone [...] + | Author | [facility] | | | and [place]it[place] | + + + | Organization | [facility] | | | and [place] | + + + | Address | Unknown | + + + | Phone | Unavailable | + + + Support + + + + + | Name | Relationship | Address | Phone | + + + + + | India Tilley | ECON | [address] | | | | | [place], [place] | | | | | [address] | | + + + + + | Yina La | ECON | Unknown | | + + + + + | Yina Peterson | ECON | Unknown | | + + + + + | Leatha Casillas | ECON | Unknown | | + + + + + Care Team Providers + +------+ + | Care Nursing Home Aide Name | Role | Phone | + +------+ + PCP | Unavailable | + +------+ + Encounter Details +--------+ + + + + | Date | Type | Department | Care Team | Description | +--------+ + + + + | 04/10/ | Hospital | [facility] | Patricia, | | | 2006 - | Encounter | [facility] | Venkatesh Forte MD [address] | | | | | [place] [address] | [facility] | | | 04/12/ | | [place] | [place] [address] | | | 2006 | | [address] | [phone] | | | | | [phone] | | | +--------+ + + + [...]
--- OUTSIDE RECORDS SUMMARY | ~2019-07-27 | XMS | Encounter Summary ---
Demographics + + + | Address | [address] | | | [place] [address] | + + + | Home Phone [...] Author | [facility] | | | and [place]it[place] | + + + | Organization | [facility] | | | and [place] | + + + | Address | Unknown | + + + | Phone | Unavailable | + + + Support + + + + + | Name | Relationship | Address | Phone | + + + + + | India Tilley | ECON | [address] | | | | | [place], [place] | | | | | [address] | | + + + + + | Yina La | ECON | Unknown | | + + + + + | Yina Peterson | ECON | Unknown | | + + + + + | Leatha Casillas | ECON | Unknown | | + + + + + Care Team Providers + +------+ + | Care Production Posting Clerk Name | Role | Phone | [...] + + | 07/26/ | Telephone | [facility] | Francisca Robert, | Surgery Appointment | | 2019 | | VASCULAR SURGERY | RN | | | | | [address] | | | | | | [place] | | | | | | [address] | | | | | | [phone] | | | +--------+ + + + [...]
--- OUTSIDE RECORDS SUMMARY | ~2019-07-27 | XMS | Clinical Summary ---
Demographics + + + | Address | [address] | | | [place] [address] | + + + | Home Phone | | + + + | Preferred Language | Unknown | + + + | Marital Status | Single | + + + | Worship Affiliation | Unknown | + + + | Race | Unknown | + + + | Ethnic Group | Unknown | + + + Author + + + | Author | [facility] | | | and [place] | + + + | Organization | [facility] | | | and [place] | + + + | Address | Unknown | + + + | Phone | Unavailable | + + + Support + + + + + | Name | Relationship | Address | Phone | + + + + + | India Campos | ECON | [address] | | | | | [place], [place] | | | | | [address] | | + + + + + | Yina La | ECON | Unknown | | + + + + + | Yina Peterson | ECON | Unknown | | + + + + + | Leatha Casillas | ECON | Unknown | | + + + + + Care Team Providers + +------+ + | Care Oven Dauber Name | Role | Phone | + +------+ + | Renato villarreal MOLECULAR BIOLOGIST | PCP | | + +------+ + Allergies + + + + + + | Active Allergy | Reactions | Severity | Noted | Comments | | | | | Date | | + + + + + + | Amoxicillin | Other (See Comments) | | 07/07/20 | Patient stated she | | | | | 19 | can't tolerate | | | | | | amoxicillin and | | | | | | stated its hard on | | | | | | her stomach. | + + + + + + | Lisinopril | | | 10/01/19 | Pt states she does | | | | | 17 | not remember what | | | | | | was the reaction she | | | | | | had to lisinopril. | | | | | | I asked her if it | | | | | | gave her a cough and | | | | | | she said "I cant | | | | | | remember, maybe it | | | | | | made me sick to my | | | | | | stomach". | + + + + + + | Naproxen | | | 03/11/20 | | | | | | 18 | | + + + + + + Medications + + + +---------+------+------+-------+ | Medication | Sig | Dispensed | Refills | Star | End | Statu | | | | | | t | Date | s | | | | | | Date | | | + + + +---------+------+------+-------+ | atorvaSTATin | Take 20 mg by mouth | | 0 | | | Activ | | (LIPITOR) 20 mg | nightly. | | | | | e | | tablet | | | | | | | + + + +---------+------+------+-------+ | pantoprazole | Take 40 mg by mouth | | 0 | | | Activ | | (PROTONIX) 40 mg | every morning | | | | | e | | tablet | (before breakfast). | | | | | | + + + +---------+------+------+-------+ | levothyroxine | Take 75 mcg by mouth | | 0 | | | Activ | | (SYNTHROID, | every morning | | | | | e | | LEVOTHROID) 75 MCG | (before breakfast). | | | | | | | tablet | | | | | | | + + + +---------+------+------+-------+ | Insulin Pen Needle | by Does not apply | | 0 | | | Activ | | 31G X 5 MM MISC | route. | | | | | e | + + + +---------+------+------+-------+ | b complex-vitamin | Take 1 tablet by | | 0 | | | Activ | | c-folic acid | mouth Daily. | | | | | e | | (NEPHRO-MANUEL) tablet | | | | | | | + + + +---------+------+------+-------+ | Cheyenne MISC | by Does not apply | | 0 | | | Activ | | | route. | | | | | e | + + + +---------+------+------+-------+ | olopatadine | Place 1-2 drops into | | 0 | | | Activ | | (PATANOL) 0.1% | both eyes 2 times | | | | | e | | ophthalmic solution | daily. | | | | | | + + + +---------+------+------+-------+ | aspirin 81 mg EC | Take 81 mg by mouth | | 0 | | | Activ | | tablet | Daily. | | | | | e | + + + +---------+------+------+-------+ | albuterol 90 | Inhale 2 puffs into | | 0 | | | Activ | | mcg/puff inhaler | the lungs 4 times | | | | | e | | | daily as needed for | | | | | | | | Shortness of Breath. | | | | | | + + + +---------+------+------+-------+ | ARTIFICIAL TEAR | Place 1-2 drops into | | 0 | | | Activ | | SOLUTION OP | both eyes as needed | | | | | e | | | (for dry eyes). | | | | | | + + + +---------+------+------+-------+ | Cholecalciferol | Take 4,000 Units by | | 0 | 03/3 | | Activ | | 4000 units TABS | mouth Daily. | | | 0/20 | | e | | | | | | 19 | | | + + + +---------+------+------+-------+ | ondansetron | Take 1 tablet by | 20 | 0 | 04/0 | | Activ | | (ZOFRAN) 4 mg tablet | mouth every 6 hours | tablet | | 10/02 | | e | | | as needed for | | | 19 | | | | | Nausea. | | | | | | + + + +---------+------+------+-------+ | calcium acetate | Take 1 capsule by | 180 | 0 | 03/13 | | Activ | | (PHOSLO) 667 mg | mouth 3 times daily | capsule | | 06/02 | | e | | capsule | (with meals). | | | 19 | | | + + + +---------+------+------+-------+ | labetalol | Take 1 tablet by | 180 | 3 | 04/13 | | Activ | | (NORMODYNE) 300 MG | mouth 2 times daily. | tablet | | 12/31 | | e | | tablet | | | | 19 | | | + + + +---------+------+------+-------+ | NIFEdipine | Take 1 tablet by | 90 | 3 | 08 | | Activ | | (PROCARDIA XL) 90 mg | mouth Daily. | tablet | | 12/31 | | e | | ER tablet | | | | 19 | | | + + + +---------+------+------+-------+ +---+ + | | Additional | | | informationPatient | | | not taking. Reported | | | on 06/13/2019 1:40 | | | PM | +---+ + + + + +----+------+---+-------+ | cloNIDine | Place 1 patch onto | 4 patch | 11 | 08/1 | | Activ | | (CATAPRES) 0.3 mg/24 | the skin Once a | | | 6/20 | | e | | hr patch | week. | | | 19 | | | + + + +----+------+---+-------+ | gabapentin | Take 2 capsules by | | 0 | 08/2 | | Activ | | (NEURONTIN) 100 mg | mouth every morning. | | | 06/02 | | e | | capsule | | | | 19 | | | + + + +----+------+---+-------+ +---+ + | | Additional | | | informationPatient | | | not taking. Reported | | | on 06/13/2019 1:40 | | | PM | +---+ + + + +--------+---+------+---+-------+ | furosemide (LASIX) | Take 1 tablet by | 90 | 3 | 08/2 | | Activ | | 80 mg tablet | mouth Daily. | tablet | | 06/02 | | e | | | | | | 19 | | | + + +--------+---+------+---+-------+ | epoetin karthik | Inject 0.85 mLs into | | 0 | 08/3 | | Activ | | (EPOGEN, PROCRIT) | the vein Three | | | 0/20 | | e | | 4,000 units/mL | times a week. | | | 19 | | | | injection | | | | | | | + + +--------+---+------+---+-------+ +---+ + | | Additional | | | informationPatient | | | not taking. Reported | | | on 06/13/2019 1:40 | | | PM | +---+ + + + +--------+---+------+---+-------+ | cetirizine | Take 10 mg by mouth | | 0 | | | Activ | | (ZYRTEC) 10 mg | Daily. | | | | | e | | tablet | | | | | | | + + +--------+---+------+---+-------+ | acetaminophen | Take 500 mg by mouth | | 0 | | | Activ | | (TYLENOL) 500 mg | as needed for Pain. | | | | | e | | tablet | | | | | | | + + +--------+---+------+---+-------+ | amLODIPine | Take 1 tablet by | 60 | 0 | 05/14 | | Activ | | (NORVASC) 5 mg | mouth 2 times daily. | tablet | | 11/02 | | e | | tablet | | | | 19 | | | + + +--------+---+------+---+-------+ | losartan (COZAAR) | Take 1 tablet by | 30 | 0 | 05/14 | | Activ | | 100 MG tablet | mouth Daily. | tablet | | 11/30 | | e | | | | | | 19 | | | + + +--------+---+------+---+-------+ Active Problems + + + | Problem | Noted Date | + + + | Hypoxia | 05/20/2019 | + + + | Osteomyelitis of thoracic region | 05/20/2019 | + + + | probable Discitis of thoracic region | 03/24/2019 | + + + | Closed right hip fracture | 12/04/2018 | + + + | Non-compliance | 12/04/2018 | + + + | Closed fracture of neck of right femur | 12/04/2018 | + + + | ESRD (end stage renal disease) on dialysis | 01/25/2018 | + + + | Elevated hemoglobin A1c | 11/08/2017 | + + + | Poor historian | 11/08/2017 | + + + | Decreased glomerular filtration rate (GFR) | 11/08/2017 | + + + + + | Overview: GFR 17 11/08/2017 | + + + + + | Facial cellulitis | 06/01/2015 | + + + | Left orbital abscess | 06/01/2015 | + + + | Orbital cellulitis on left | 06/01/2015 | + + + | Other orbital disorder | 12/10/2008 | + + + | Cerebral artery occlusion with cerebral infarction | 12/20/2007 | + + + + + | Overview: Overview: | | DEANNA Thayer. | | | | Dx name changed by system update 06/04/2017 | + + + + + | Other, mixed, or unspecified nondependent drug abuse, unspecified | 10/19/2007 | + + + + + | Overview: Overview: | | THC, hydrocodone | + + + + + | Disorder of kidney and ureter | 09/14/2007 | + + + + + | Overview: Overview: | | severe microabuminuria. Cre 1.6. K 5.5 (01/18)RENAL REFER. | | | | Dx Name changed by system update on 06/25/2017 | + + + + + | Disorder of lipoid metabolism | 09/14/2007 | + + + + + | Overview: Overview: | | Dx Name changed by system update on 06/25/2017 | + + + + + | Hypothyroidism | 09/14/2007 | + + + | Depressive disorder, not elsewhere classified | 09/12/2007 | + + + + + | Overview: Overview: Well controlled on Cymbalta. Trials | | SSRIs (lexapro, serzone, wellbutrin, celexa, remeron) in past. | |celexa, remeron) in past. | + + + + + | H/O LEFT Beast cancer - 2006 | 09/12/2007 | + + + + + | Overview: Overview: | | mastectomy L Oct 19 with chemo [facility] | | | | IMO Problem List Replacement - 2016_Regulatory_1 | + + + + + | DJD (degenerative joint disease) | 09/12/2007 | + + + + + | Overview: Overview: | | x 10 years. Trials sulfasalazine, hydroxychlorquine, arava | | | | IMO Problem List Replacement - 2016_Regulatory_1 | + + + + + | Other chronic pain | 09/12/2007 | + + + + + | Overview: Overview: | | Several no shows, Dr. Odom will NOT continue narcotics. | + + + +---+ | Macrocytic anemia | | + +---+ | Arthritis | | + +---+ | Back pain | | + +---+ | History of blood clots | | + +---+ | Cancer | | + +---+ | Heart disease | | + +---+ | Essential hypertension | | + +---+ | Seasonal allergies | | + +---+ | DM (diabetes mellitus), type 2 | | + +---+ | Hyperlipidemia | | + +---+ Encounters +--------+ + + + + | Date | Type | Specialty | Care Team | Description | +--------+ + + + + | 07/26/ | Telephone | Vascular Surgery | Francisca Robert, | Surgery Appointment | | 2018 | | | RN | | +--------+ + + + + | 07/13/ | Hospital | Radiology | Fabiana Miller, | Tyronecelmary (OTHER) | | 2018 | Encounter | | Nick Apodaca MD | | | | | | Wm Monaco | | | | | | MD Pepe | | +--------+ + + + + | 07/12/ | Telephone | Radiology | Wm Monaco | | | 2018 | | | MD Pepe | | +--------+ + + + + | 06/27/ | Telephone | Radiology | Ta Melendez, Felipe Appointment | 2018 | | | | (schedule) | +--------+ + + + + | 06/27/ | Documentati | Infectious Diseases | Tabatha Patel, | Other (Admission | | 2018 | on | | Credit Reporting Clerk | Records | | | | | | 06/20/2019- | | | | | | 9- [facility] | | | [facility] . ) | +--------+ + + + + | 06/19/ | Telephone | Radiology | Ibis Arriola | | | 2018 | | | LISA Restrepo | | +--------+ + + + + | 06/15/ | Telephone | Radiology | Ibis Arriola | | | 2018 | | | Lauro RN | | +--------+ + + + + | 06/14/ | Telephone | Infectious Diseases | Tabatha Patel, | Care Coordination | | 2018 | | | Credit Reporting Clerk | (Patient Timeline - | | | | | | Line Care/Provider | | | | | | Management ) | +--------+ + + + + | 06/13/ | Office | Infectious Diseases | Fabiana Miller, | Infection of | | 2018 | Visit | | Nick Apodaca MD | intervertebral disc | | | | | | (pyogenic), thoracic | | | | | | region (HCC) | | | | | | (Primary Dx); | | | | | | Osteomyelitis [...] dialysis | | | | | | (HCC); Central | | | | | | venous catheter in | | | | | | place | +--------+ + + + + | 06/13/ | Orders Only | | Gerald Lee, | Infection of | 2018 | | | Executive Chef | intervertebral disc | | | | | | (pyogenic), thoracic | | | | | | region (HCC); | | | | | | Osteomyelitis of | | | | | | thoracic vertebra | | | | | | (HCC) | +--------+ + + + + | 06/01/ | Telephone | Nephrology | Gopi Muñoz | Other | | 2018 | | | DO Jessie | | +--------+ + + + + | 05/26/ | Documentati | Infectious Diseases | Carlos Jansen, | Referral ([facility] | | 2018 | on | | MD | [facility] | | | | | | center) | +--------+ + + + + | 05/23/ | Surgery | Radiology | Akash Ashraf | DI: MRI | | 2018 | | | MD Juan F | | +--------+ + + + + | 05/22/ | Hospital | Radiology | Fabiana Miller, | No Show | | 2018 | Encounter | | Nick Apodaca MD | | +--------+ + + + + | 05/20/ | Hospital | | Mirza Retana | Hypoxia; Pulmonary | | 2018 - | Encounter | | MD Sanford Cespedes, | edema with | | | | | MD Nora | congestive heart | | 05/25/ | | | | failure, NYHA class | | 2019 | | | | 4 ([facility]); ESRD (end | | | | | | stage renal disease) | | | | | | on dialysis ([facility]); | | | | | | Hypertensive | | | | | | urgency, malignant; | | | | | | Anemia in chronic | | | | | | kidney disease, on | | | | | | chronic dialysis | | | | | | ([facility]); Essential | | | | | | hypertension; | | | | | | Osteomyelitis of | | | | | | thoracic region | | | | | | ([facility]); Type 2 | | | | | | diabetes mellitus | | | | | | with stage 4 chronic | | | | | | kidney disease, | | | | | | with long-term | | | | | | current use of | | | | | | insulin (HCC) | +--------+ + + + + | 05/18/ | Office | Infectious Diseases | Fabiana Miller, | Infection of | | 2018 | Visit | | Nick Apodaca MD | intervertebral disc | | | | | | (pyogenic), thoracic | | | | | | region (HCC) | | | | | | (Primary Dx); | | | | | | Osteomyelitis [...] | | | | | (HCC) | +--------+ + + + + | 05/18/ | Orders Only | Infectious Diseases | Fabiana Miller, | | | 2018 | | | Nick Apodaca MD | | +--------+ + + + + | 05/18/ | Orders Only | | Alexus, Maribeth | 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 | | | Y, Executive Chef | intervertebral disc | | | | | | (pyogenic), thoracic | | | | | | region ([facility]); | | | | | | Osteomyelitis of | | | | | | thoracic vertebra | | | | | | ([facility]) | +--------+ + + + + | 05/16/ | Abstract | Nephrology | Gopi Muñoz | | | 2018 | | | M, DO | | +--------+ + + + + | 05/11/ | Off-Site | Nephrology | Gopi Muñoz | ESRD (end stage | | 2018 | Visit | | M, DO | renal disease) on | | | | | | dialysis ([facility]) | | | | | | (Primary Dx) | +--------+ + + + + | 05/08/ | Off-Site | Nephrology | Gopi Muñoz | Osteomyelitis, | | 2018 | Visit | | M, DO | unspecified site, | | | | | | unspecified type | | | | | | (HCC) (Primary Dx); | | | | | | ESRD (end stage | | | | | | renal disease) on | | | | | | dialysis ([facility]) | +--------+ + + + + | 04/28/ | Orders Only | Nephrology | Gopi Muñoz | | | 2018 | | | Jessie DO | | +--------+ + + + + | 04/26/ | Orders Only | Nephrology | Gopi Muñoz | | | 2018 | | | Jessie DO | | +--------+ + + + + from Last 3 Months Immunizations + + + + | Name | Administration Dates | Next Due | + + + + | HEP B, 3 DOSE | 06/22/2002, 07/18/2001, 06/15/2001 | | | (ADULT) | | | + + + + | Hep B, Dialysis, 4 | 01/21/2018, 12/17/2017, 11/19/2017 | | | Dose | | | + + + + | INFLUENZA PF 66 Y OR | 06/03/2018 | | | >,TRIVALENT (FLUAD) | | | + + + + | INFLUENZA PF | 09/23/2017, 05/19/2016 | | | QUAD(PED/ADOL/ADULT) | | | | ,PSKT or VIAL | | | + + + + | INFLUENZA PF | 06/28/2015 | | | TRIVALENT(PED/ADOL/A | | | | DULT), PSKT | | | + + + + | INFLUENZA QUADR | 06/27/2014 | | | W/PRES | | | | (PED/ADOL/ADULT) | | | | MULTIDOSE | | | + + + + | INFLUENZA, [id number], | 08/28/2009 | | | UNSPECIFIED | | | + + + + | INFLUENZA, | 06/20/2013, 05/25/2012, 07/30/2011, | | | UNSPECIFIED | 06/17/2010, 08/28/2009, 07/22/2007, | | | FORMULATION | 08/03/2006, 07/02/2005, 06/26/2004, | | | | 07/20/2003, 07/21/2002, 06/15/2001, | | | | 07/29/2000, 10/09/1999, 06/22/1997, | | | | 07/12/1996, 06/18/1993, 07/03/1992 | | + + + + | PNEUMOCOCCAL | 02/12/2016, 07/30/2011 | | | CONJUGATE 13-VALENT | | | | (PCV13) | | | + + + + | PNEUMOCOCCAL | 07/30/2011, 07/20/2003, 06/22/1997 | | | POLYSACCHARIDE | | | | 23-VALENT (PPSV23) | | | + + + + | TD PF (2 LF TETANUS) | 06/22/2002, 07/03/1992 | | | (ADOL/ADULT) | | | + + + + | TDAP, (ADOL/ADULT) | 06/17/2010, 06/17/2010 | | + + + + | ZOSTER, 1 DOSE | 01/28/2012 | | | (ZOSTAVAX) | | | + + + + Family History + + +------+ + | Medical History | Relation | Name | Comments | + + +------+ + | Diabetes | Other | | grandfather | + + +------+ + | Diabetes | Other | | grandmother | + + +------+ + | Cancer | Sister | | | + + +------+ + + +------+--------+ + | Relation | Name | Status | Comments | + +------+--------+ + | Other | | | | + +------+--------+ + | Other | | | | + +------+--------+ + | Sister | | | | + +------+--------+ + Social History + +-------+ +--------+------+ | [...] recent travel history available. | + + Last Filed Vital Signs + + + [...] | | + + + + + Plan of Treatment + + + + + | Health Maintenance | Due Date | Last Done | Comments | + + + + + | Diabetic Eye Exam | | | | | | 4 | | | + + + + + | Diabetic Foot Exam | | | | | | 4 | | | + + + + + | Colorectal Cancer | | | | | Screening | 6 | | | | (Colonoscopy) | | | | + + + + + | Breast Cancer | | | | | Screening | 1 | | | + + + + + | Vaccine: Zoster (2 | | 01/28/2012 | | | of 3) | 2 | | | + + + + + | Adult Annual | | | | | Wellness Visit | 5 | | | + + + + + | Vaccine: Influenza | | 06/03/2018, 09/23/2017, | | | (#1) | 9 | 05/19/2016, Additional history | | | | | exists | | + + + + + | Hemoglobin A1c | | 12/06/2018, 10/02/2017, | | | Screening | 9 | 10/15/2015 | | + + + + + | Vaccine: | | 06/17/2010, 06/22/2002, | | | Dtap/Tdap/Td (2 - | 0 | 07/03/1992 | | | Td) | | | | + + + + + | Vaccine: | Completed | 02/12/2016, 07/30/2011, | | | Pneumococcal 65+ | | 07/30/2011, Additional history | | | | | exists | | + + + + + | Hepatitis C | Completed | 11/03/2017 | | | Screening | | | | + + + + + Implants + +-------+--------+ +--------+--------+--------+ | Implanted | Type | Area | Manufacture | Device | Shelf | Model | | | | | r | | Expira | / | | | | | | Identi | tion | Serial | | | | | | fier | Date | / Lot | + +-------+--------+ +--------+--------+--------+ | Screw Asnis 3 Ti 20mm | Screw | Right: | CATIA | | | [id number] | | 6.5x85mm - | | Hip | MEDICAL - | | | S / / | | [id number]: Qty: 2 | | | STRY | | | | | on 12/04/2018 by Ga | | | | | | | | Scott John MD at [facility] | | | | | | | | [facility] | | | | | | | + +-------+--------+ +--------+--------+--------+ | Screw Asnis 3 Ti 20mm | Screw | Right: | CATIA | | | [id number] | | 6.5x90mm - | | Hip | MEDICAL - | | | S / / | | [id number]: Qty: 1 | | | STRY | | | | | on 12/04/2018 by Ga, | | | | | | | | Scott John MD at [facility] | | | | | | | | [facility] | | | | | | | + +-------+--------+ +--------+--------+--------+ Procedures + +--------+ + + + | [...] section. | | | | | region ([facility]) | | | | | | Osteomyelitis [...] section. | | | | | region ([facility]) | | | | | | Osteomyelitis of | | | | | | thoracic vertebra | | | | | | (HCC) | | + +--------+ + + + | POC GLUCOSE | Routin | 05/25/2019 | | Results for this | | | e | 12:15 PM | | procedure are in the | | | | PDT | | results section. | + +--------+ + + + | POC GLUCOSE | Routin | 05/25/2019 | | Results for this | | | e | 7:38 AM | | procedure are in the | | | | PDT | | results section. | + +--------+ + + + | RENAL FUNCTION PANEL | Routin | 05/25/2019 | | Results for this | | | e | 6:30 AM | | procedure are in the | | | | PDT | | results section. | + +--------+ + + + | VANCOMYCIN LEVEL | Timed | 05/25/2019 | | Results for this | | | | 1:57 AM | | procedure are in the | | | | PDT | | results section. | + +--------+ + + + | POC GLUCOSE | Routin | 05/24/2019 | | Results for this | | | e | 8:25 PM | | procedure are in the | | | | PDT | | results section. | + +--------+ + + + | POC GLUCOSE | Routin | 05/24/2019 | | Results for this | | | e | 5:41 PM | | procedure are in the | | | | PDT | | results section. | + +--------+ + + + | POC GLUCOSE | Routin | 05/24/2019 | | Results for this | | | e | 11:45 AM | | procedure are in the | | | | PDT | | results section. | + +--------+ + + + | CBC WITH | Routin | 05/24/2019 | | Results for this | | DIFFERENTIAL | e | 6:54 AM | | procedure are in the | | | | PDT | | results section. | + +--------+ + + + | RENAL FUNCTION PANEL | Routin | 05/24/2019 | | Results for this | | | e | 6:54 AM | | procedure are in the | | | | PDT | | results section. | + +--------+ + + + | POC GLUCOSE | Routin | 05/23/2019 | | Results for this | | | e | 9:45 PM | | procedure are in the | | | | PDT | | results section. | + +--------+ + + + | POC GLUCOSE | Routin | 05/23/2019 | | Results for this | | | e | 5:32 PM | | procedure are in the | | | | PDT | | results section. | + +--------+ + + + | MRI LUMBAR SPINE WO | Routin | 05/23/2019 | | Results for this | | CONTRAST | e | 5:09 PM | | procedure are in the | | | | PDT | | results section. | + +--------+ + + + | DI: MRI | | 05/23/2019 | LUMBAR MRI | | | | | 3:00 PM | | | | | | PDT | | | + +--------+ + + + | POC GLUCOSE | Routin | 05/23/2019 | | Results for this | | | e | 12:05 PM | | procedure are in the | | | | PDT | | results section. | + +--------+ + + + | POC GLUCOSE | Routin | 05/23/2019 | | Results for this | | | e | 6:39 AM | | procedure are in the | | | | PDT | | results section. | + +--------+ + + + | CBC WITH | Routin | 05/23/2019 | | Results for this | | DIFFERENTIAL | e | 5:10 AM | | procedure are in the | | | | PDT | | results section. | + +--------+ + + + | RENAL FUNCTION PANEL | Routin | 05/23/2019 | | Results for this | | | e | 5:10 AM | | procedure are in the | | | | PDT | | results section. | + +--------+ + + + | POC GLUCOSE | Routin | 05/22/2019 | | Results for this | | | e | 8:24 PM | | procedure are in the | | | | PDT | | results section. | + +--------+ + + + | POC GLUCOSE | Routin | 05/22/2019 | | Results for this | | | e | 5:12 PM | | procedure are in the | | | | PDT | | results section. | + +--------+ + + + | US GUIDED | Routin | 05/22/2019 | | Results for this | | THORACENTESIS WO | e | 3:16 PM | | procedure are in the | | CHEST TUBE | | PDT | | results section. | + +--------+ + + + | LACTATE | Routin | 05/22/2019 | | Results for this | | DEHYDROGENASE, BODY | e | 3:15 PM | | procedure are in the | | FLUID | | PDT | | results section. | + +--------+ + + + | RESULT 29, (REF) | Routin | 05/22/2019 | | Results for this | | (RESULT ONLY) | e | 3:09 PM | | procedure are in the | | | | PDT | | results section. | + +--------+ + + + | PROTEIN, BODY FLUID | Routin | 05/22/2019 | | Results for this | | | e | 3:09 PM | | procedure are in the | | | | PDT | | results section. | + +--------+ + + + | CELL COUNT WITH | Routin | 05/22/2019 | | Results for this | | DIFFERENTIAL, BODY | e | 3:09 PM | | procedure are in the | | FLUID | | PDT | | results section. | + +--------+ + + + | CULTURE, FUNGUS | Routin | 05/22/2019 | | Results for this | | (REFLEX RESULTS | e | 3:09 PM | | procedure are in the | | ONLY) | | PDT | | results section. | + +--------+ + + + | CULTURE, BODY FLUID, | Routin | 05/22/2019 | | Results for this | | ANAEROBE | e | 3:09 PM | | procedure are in the | | | | PDT | | results section. | + +--------+ + + + | CULTURE, BODY FLUID, | Routin | 05/22/2019 | | Results for this | | AEROBE | e | 3:09 PM | | procedure are in the | | | | PDT | | results section. | + +--------+ + + + | CULTURE, FUNGUS, | Routin | 05/22/2019 | | Results for this | | SMEAR | e | 3:09 PM | | procedure are in the | | | | PDT | | results section. | + +--------+ + + + | CULTURE, BODY FLUID, | Routin | 05/22/2019 | | Results for this | | STERILE, SMEAR, | e | 3:09 PM | | procedure are in the | | WITH ANAEROBES | | PDT | | results section. | + +--------+ + + + | POC GLUCOSE | Routin | 05/22/2019 | | Results for this | | | e | 11:23 AM | | procedure are in the | | | | PDT | | results section. | + +--------+ + + + | POC GLUCOSE | Routin | 05/22/2019 | | Results for this | | | e | 6:46 AM | | procedure are in the | | | | PDT | | results section. | + +--------+ + + + | CBC WITH | Routin | 05/22/2019 | | Results for this | | DIFFERENTIAL | e | 3:12 AM | | procedure are in the | | | | PDT | | results section. | + +--------+ + + + | RENAL FUNCTION PANEL | Routin | 05/22/2019 | | Results for this | | | e | 3:12 AM | | procedure are in the | | | | PDT | | results section. | + +--------+ + + + | POC GLUCOSE | Routin | 05/21/2019 | | Results for this | | | e | 8:16 PM | | procedure are in the | | | | PDT | | results section. | + +--------+ + + + | POC GLUCOSE | Routin | 05/21/2019 | | Results for this | | | e | 4:57 PM | | procedure are in the | | | | PDT | | results section. | + +--------+ + + + | POC GLUCOSE | Routin | 05/21/2019 | | Results for this | | | e | 12:12 PM | | procedure are in the | | | | PDT | | results section. | + +--------+ + + + | POC GLUCOSE | Routin | 05/21/2019 | | Results for this | | | e | 6:34 AM | | procedure are in the | | | | PDT | | results section. | + +--------+ + + + | SEDIMENTATION RATE | Add-On | 05/21/2019 | | Results for this | | | | 4:15 AM | | procedure are in the | | | | PDT | | results section. | + +--------+ + + + | C-REACTIVE PROTEIN | Add-On | 05/21/2019 | | Results for this | | | | 4:15 AM | | procedure are in the | | | | PDT | | results section. | + +--------+ + + + | RENAL FUNCTION PANEL | Routin | 05/21/2019 | | Results for this | | | e | 4:15 AM | | procedure are in the | | | | PDT | | results section. | + +--------+ + + + | PROCALCITONIN, SERUM | Routin | 05/21/2019 | | Results for this | | | e | 4:15 AM | | procedure are in the | | | | PDT | | results section. | + +--------+ + + + | PROTIME INR | Routin | 05/21/2019 | | Results for this | | | e | 4:15 AM | | procedure are in the | | | | PDT | | results section. | + +--------+ + + + | MAGNESIUM | Routin | 05/21/2019 | | Results for this | | | e | 4:15 AM | | procedure are in the | | | | PDT | | results section. | + +--------+ + + + | CBC WITH | Routin | 05/21/2019 | | Results for this | | DIFFERENTIAL | e | 4:15 AM | | procedure are in the | | | | PDT | | results section. | + +--------+ + + + | CT CHEST W CONTRAST | Routin | 05/21/2019 | | Results for this | | | e | 12:40 AM | | procedure are in the | | | | PDT | | results section. | + +--------+ + + + | MEDICAL CYTOLOGY | Routin | 05/21/2019 | | Results for this | | | e | 12:00 AM | | procedure are in the | | | | PDT | | results section. | + +--------+ + + + | SEDIMENTATION RATE | Routin | 05/20/2019 | | Results for this | | | e | 10:48 PM | | procedure are in the | | | | PDT | | results section. | + +--------+ + + + | RESPIRATORY THERAPY | Routin | 05/20/2019 | | | | COMMUNICATION | e | 10:26 PM | | | | | | PDT | | | + +--------+ + + + | XR CHEST AP PORTABLE | Routin | 05/20/2019 | | Results for this | | | e | 9:42 PM | | procedure are in the | | | | PDT | | results section. | + +--------+ + + + | POC GLUCOSE | Routin | 05/20/2019 | | Results for this | | | e | 9:13 PM | | procedure are in the | | | | PDT | | results section. | + +--------+ + + + | TYPE AND SCREEN | Routin | 05/20/2019 | | Results for this | | | e | 9:11 PM | | procedure are in the | | | | PDT | | results section. | + +--------+ + + + | C-REACTIVE PROTEIN | Add-On | 05/20/2019 | | Results for this | | | | 9:11 PM | | procedure are in the | | | | PDT | | results section. | + +--------+ + + + | VITAMIN B-12 | Add-On | 05/20/2019 | | Results for this | | | | 9:11 PM | | procedure are in the | | | | PDT | | results section. | + +--------+ + + + | TSH | Add-On | 05/20/2019 | | Results for this | | | | 9:11 PM | | procedure are in the | | | | PDT | | results section. | + +--------+ + + + | TROPONIN I | Routin | 05/20/2019 | | Results for this | | | e | 8:51 PM | | procedure are in the | | | | PDT | | results section. | + +--------+ + + + | PHOSPHORUS | Routin | 05/20/2019 | | Results for this | | | e | 8:51 PM | | procedure are in the | | | | PDT | | results section. | + +--------+ + + + | MAGNESIUM | Routin | 05/20/2019 | | Results for this | | | e | 8:51 PM | | procedure are in the | | | | PDT | | results section. | + +--------+ + + + | B TYPE NATRIURETIC | Routin | 05/20/2019 | | Results for this | | PEPTIDE | e | 8:51 PM | | procedure are in the | | | | PDT | | results section. | + +--------+ + + + | HEPATIC FUNCTION | Routin | 05/20/2019 | | Results for this | | PANEL | e | 8:51 PM | | procedure are in the | | | | PDT | | results section. | + +--------+ + + + | BASIC METABOLIC | Routin | 05/20/2019 | | Results for this | | PANEL | e | 8:51 PM | | procedure are in the | | | | PDT | | results section. | + +--------+ + + + | POC BLOOD GASES | Routin | 05/20/2019 | | Results for this | | | e | 8:42 PM | | procedure are in the | | | | PDT | | results section. | + +--------+ + + + | CULTURE, MRSA | Routin | 05/20/2019 | | Results for this | | | e | 8:22 PM | | procedure are in the | | | | PDT | | results section. | + +--------+ + + + | IMAGING REPORT - | | 05/20/2019 | | Results for this | | [...] section. | | | | | region (HCC) [...] section. | | | | | region ([facility]) | | | | | | Osteomyelitis of | | | | | | thoracic vertebra | | | | | | ([facility]) | | + +--------+ + + + | SEDIMENTATION RATE | Routin | 05/18/2019 | Infection of | Results for this | | | e | 3:45 PM | intervertebral disc | procedure are in the | | | | PDT | (pyogenic), thoracic | results section. | | | | | region ([facility]) | | | | | | Osteomyelitis of | | | | | | thoracic vertebra | | | | | | ([facility]) | | + +--------+ + + + | C-REACTIVE PROTEIN | Routin | 05/18/2019 | Infection of | Results for this | | | e | 3:45 PM | intervertebral disc | procedure are in the | | | | PDT | (pyogenic), thoracic | results section. | | | | | region ([facility]) | | | | | | Osteomyelitis of | | | | | | thoracic vertebra | | | | | | ([facility]) | | + +--------+ + + + | CULTURE, BLOOD | Routin | 05/18/2019 | Infection of | Results for this | | | e | 3:08 PM | intervertebral disc | procedure are in the | | | | PDT | (pyogenic), thoracic | results section. | | | | | region ([facility]) | | | | | | Osteomyelitis of | | | | | | thoracic vertebra | | | | | | ([facility]) | | + +--------+ + + + [...] section. | + +--------+ + + + from Last 3 Months Results Sedimentation Rate (06/13/2019 3:12 PM PDT)Only the most recent of 5 results within the ti ar period is included. + + + + + + | Component | Value | Ref Range | Performed | Pathologist | | | | | At | Signature | + + + + + + | ESR | 53 (H)Comment: Testing | 0 - 30 mm/Hr | REFERENCE | | | | performed at [facility];[address] | | LAB | | | | [place] | | [facility] | | | | [address];[place] [address] | | LABORATORY | | + + + + + + + + | Specimen | + + | Blood | + + + + + + + | Performing | Address | City/State/Zipcode | Phone Number | | Organization | | | | + + + + + | REFERENCE LAB | [address] [place] [address] | [place] [address] | [phone] | | [facility] | Bl[address] | | | | LABORATORY | | | | + + + + + | REFERENCE LAB | [address] [place] [address] | [place] [address] | | | [facility] | Bl[address] | | | | LABORATORY | | | | + + + + + C-Reactive Protein (06/13/2019 3:12 PM PDT)Only the most recent of 4 results within the ti ar period is included. + + + + + + | Component | Value | Ref Range | Performed | Pathologist | | | | | At | Signature | + + + + + + | CRP | 1.0 (H)Comment: Testing | <0.5 mg/dL | REFERENCE | | | | performed at [facility];[address] | | LAB | | | | [place] | | [facility] | | | | [address];[place] [address] | | LABORATORY | | + + + + + + + + | Specimen | + + | Blood | + + + + + + + | Performing | Address | City/State/Zipcode | Phone Number | | Organization | | | | + + + + + | REFERENCE LAB | [address] [place] [address] | [place] [address] | [phone] | | [facility] | Blvd[address] | | | | LABORATORY | | | | + + + + + | REFERENCE LAB | [address] [place] [address] | [place] [address] | | | [facility] | Blvd[address] | | | | LABORATORY | | | | + + + + + POC Glucose (05/25/2019 12:15 PM PDT)Only the most recent of 18 results within the time per iod is included. + +---------+ + + + | Component | Value | Ref Range | Performed | Pathologist | | | | | At | Signature | + +---------+ + + + | Glucose, | 113 (H) | 70 - 109 mg/dL | [facility] | | | POC | | | [facility] | | | | | [facility]ICAL | | | | | | CENTER - | | | | | | LABORATORY | | + +---------+ + + + + + | Specimen | + + | Blood | + + + + + + + | Performing | Address | City/State/[facility] | Phone Number | | Organization | | | | + + + + + | [facility] | [address] | [place] | [phone] | | [facility] | | [address] | | | - LABORATORY | | | | + + + + + Renal Function Panel (05/25/2019 6:30 AM PDT)Only the most recent of 5 results within the time period is included. + + + + + + | Component | Value | Ref Range | Performed | Pathologist | | | | | At | Signature | + + + + + + | Na | 135 (L) | 136 - 145 | [facility] | | | | | mmol/L | [facility] | | | | | | MEDICAL | | | | | | CENTER - | | | | | | LABORATORY | | + + + + + + | K | 3.8 | 3.4 - 5.1 | [facility] | | | | | mmol/L | [facility] | | | | | | MEDICAL | | | | | | CENTER - | | | | | | LABORATORY | | + + + + + + | Cl | 99 | 98 - 107 mmol/L | [facility] [...] + + + + | Glucose | 100 | 60 - 106 mg/dL | [facility] | | | | | | [facility] | | | | | | MEDICAL | | | | | | CENTER - | | | | | | LABORATORY | | + + + + + + | BUN | 21 | 9 - 23 mg/dL | [facility] | | | | | | [facility] | | | | | | MEDICAL | | | | | | CENTER - | | | | | | LABORATORY | | + + + + + + | Creatinine | 4.14 (H) | 0.55 - 1.02 | [facility] | | | | | mg/dL | [facility] | | | | | | MEDICAL | | | | | | CENTER - | | | | | | LABORATORY | | + + + + + + | eGFR if not | 11 (L)Comment: | >=60 | [facility] | | | | GLOMERULAR FILTRATION | mL/min/1.73m2 | [facility] | | | [facility] | RATE,ESTIMATED | | MEDICAL | | | | mL/min/1.51d7Tszc than | | CENTER - | | [...] + + + + | Phosphorus | 4.7 | 2.4 - 5.1 mg/dL | [facility] | | | | | | [facility] | | | | | | MEDICAL | | | | | | CENTER - | | | | | | LABORATORY | | + + + + + + | BUN/Creatin | 5.1 | | [facility] | | | ine [...] [address] | [place] | [phone] | | [facility] | | [address] | | | - LABORATORY | | | | + + + + + Vancomycin Level (05/25/2019 1:57 AM PDT) + +-------+ + + + | Component | Value | Ref Range | Performed | Pathologist | | | | | At | Signature | + +-------+ + + + | Date of | | | [facility] | | | Last Dose | | | [facility] | | | | | | MEDICAL | | | | | | CENTER - | | | | | | LABORATORY | | + +-------+ + + + | Time of | | | [facility] | | | Last Dose | | | [facility] | | | | | | MEDICAL | | | | | | CENTER - | | | | | | LABORATORY | | + +-------+ + + + | Vancomycin | 14.9 | 5.0 - 20.0 | [facility] | | | Random | | ug/mL | [facility] | | | | [...] [address] | [place] | [phone] | | [facility] | | [address] | | | - LABORATORY | | | | + + + + + CBC with Differential (05/24/2019 6:54 AM PDT)Only the most recent of 5 results within the time period is included. + + + + + + | Component | Value | Ref Range | Performed | Pathologist | | | | | At | Signature | + + + + + + | WBC | 4.6 | 4.0 - 11.0 K/uL | [facility] | | | | | | [facility] | | | | | | MEDICAL | | | | | | CENTER - | | | | | | LABORATORY | | + + + + + + | RBC | 2.66 (L) | 3.70 - 5.20 | [facility] [...] + + + + | Hematocrit | 25.9 (L) | 34.0 - 47.0 % | [facility] | | | | | | [facility] | | | | | | MEDICAL | | | | | | CENTER - | | | | | | LABORATORY | | + + + + + + | MCV | 97.4 | 83.0 - 101.0 fL | [facility] | | | | | | [facility] | | | | | | MEDICAL | | | | | | CENTER - | | | | | | LABORATORY | | + + + + + + | MCH | 32.3 | 28.0 - 35.0 pg | [facility] [...] + + + + | RDW-SD | 49.1 (H) | 35.1 - 46.3 fL | [facility] | | | | | | [facility] | | | | | | MEDICAL | | | | | | CENTER - | | | | | | LABORATORY | | + + + + + + | Platelet | 217 | 140 - 440 K/uL | [facility] [...] + + + + | % | 68.3 | 45.0 - 82.0 % | [facility] | | | Neutrophils | | | [facility] | | | | | | MEDICAL | | | | | | CENTER - | | | | | | LABORATORY | | + + + + + + | % | 17.5 (L) | 20.0 - 45.0 % | [facility] | | | Lymphocytes | | | [facility] | | | | | | MEDICAL | | | | | | CENTER - | | | | | | LABORATORY | | + + + + + + | % Monocytes | 5.9 | 4.0 - 12.0 % | [facility] | | | | | | [facility] | | | | | | MEDICAL | | | | | | CENTER - | | | | | | LABORATORY | | + + + + + + | % | 7.0 (H) | 0.0 - 5.0 % | [facility] | | | Eosinophils | | | [facility] | | | | | | MEDICAL | | | | | | CENTER - | | | | | | LABORATORY | | + + + + + + | % Basophils | 1.1 (H) | 0.0 - 1.0 % | [facility] | | | | | | [facility] | | | | | | MEDICAL | | | | | | CENTER - | | | | | | LABORATORY | | + + + + + + | % Immature | 0.2 | 0.0 - 0.4 % | [facility] | | | Granulocyte | | | [facility] | | | s | | | MEDICAL | | | | | | CENTER - | | | | | | LABORATORY | | + + + + + + | Absolute | 3.13 | 1.80 - 8.50 | [facility] | | | Neutrophils | | K/uL | [facility] | | | | | | MEDICAL | | | | | | CENTER - | | | | | | LABORATORY | | + + + + + + | Absolute | 0.80 | 0.60 - 3.20 | [facility] | | | Lymphocytes | | K/uL | [facility] | | | | | | MEDICAL | | | | | | CENTER - | | | | | | LABORATORY | | + + + + + + | Absolute | 0.27 | 0.00 - 1.00 | [facility] | | | Monocytes | | K/uL | [facility] | | | | | | MEDICAL | | | | | | CENTER - | | | | | | LABORATORY | | + + + + + + | Absolute | 0.32 | 0.00 - 0.40 | [facility] | [...] | Absolute | 0.01 | 0.00 - 0.03 | [facility] | [...] | | | | WBCs | [facility] | | | | | | MEDICAL | | | | | | CENTER - | | | | | | LABORATORY | | + + + + + + | Absolute | 0.00 | 0.00 - 0.01 | [facility] | | | nRBC | | K/uL | [facility] | [...] [address] | [place] | [phone] | | [facility] | | [address] | | | - LABORATORY | | | | + + + + + MRI Lumbar Spine wo Contrast (05/23/2019 5:09 PM PDT) + + | Specimen | + + | | + + + + + | Narrative | Performed At | + + + | TECHNIQUE: MRI of the lumbar spine with sequences to include | [facility] | | sagittal T1, sagittal STIR, coronal STIR, axial T1, axial T2, | | | sagittal T2, and coronal T2. CLINICAL INFORMATION: Would like to | | | get MRI, without Gd, (has CKD), for F/U of diskitis of T11-T12, s/p | | | AB Rx. Thanks. COMPARISON: MRI and CT dated 03/23/2019. | | | FINDINGS: The lowest functional disc level is presumed to | | | represent L5/S1. The conus medullaris terminates at L1. The | | | cauda equina appears normal. Overall unchanged appearance of | | | irregular endplate changes at T11-T12 with diffuse T11 and T12 | | | vertebral body bone marrow edema. Focal high T2 signal intensity | | | noted within the right anterior aspect of the intervertebral disc | | | space. Mild anterior paravertebral soft tissue edema, most notable | | | right of midline, anterior to T9-L2. No abnormal fluid collection to | | | suggest abscess. Unchanged mixed Modic endplate changes at L2-L3, | | | superior L4, and anterior left lateral L5-S1. Mild probable Modic | | | endplate changes are also noted at anterior T10-T11. Mild | | | leftward curvature of the lumbar spine. Unchanged mild anterolisthesis | | | of L5. Unchanged appearance of the recently described multilevel | | | lumbar spondylosis with multilevel degenerative disc disease, disc | | | protrusions/bulge and facet arthrosis. Unchanged spinal canal | | | stenosis, mild at L3-L4, moderate L4-L5, and mild L5-S1. Stable | | | varying degrees of neural foraminal stenosis, most notable at L5-S1 | | | with severe left stenosis. IMPRESSION - Overall unchanged | | | appearance at T11-T12 with persistent bone marrow edema, irregular | | | endplate changes, and paravertebral soft tissue edema, most compatible | | | with history of discitis osteomyelitis. No abscess identified. | | | Stable multilevel lumbar spondylosis. Dictated and Signed by: | | | Akash Ashraf MD Electronically signed: 05/23/2019 6:33 PM | | + + + + + | Procedure Note | + + | Julian, Rad Results In - 05/23/2019 6:36 PM PDT | | TECHNIQUE: MRI of the lumbar spine with sequences to include sagittal T1, | | sagittal STIR, coronal STIR, axial T1, axial T2, sagittal T2, and coronal T2. | | | | CLINICAL INFORMATION: Would like to get MRI, without Gd, (has CKD), for F/U of | | diskitis of T11-T12, s/p AB Rx. Thanks. | | | | COMPARISON: MRI and CT dated 03/23/2019. | | | | FINDINGS: | | | | The lowest functional disc level is presumed to represent L5/S1. | | | | The conus medullaris terminates at L1. The cauda equina appears normal. | | | | Overall unchanged appearance of irregular endplate changes at T11-T12 with | | diffuse T11 and T12 vertebral body bone marrow edema. Focal high T2 signal | | intensity noted within the right anterior aspect of the intervertebral disc | | space. Mild anterior paravertebral soft tissue edema, most notable right of | | midline, anterior to T9-L2. No abnormal fluid collection to suggest abscess. | | | | Unchanged mixed Modic endplate changes at L2-L3, superior L4, and anterior left | | lateral L5-S1. Mild probable Modic endplate changes are also noted at anterior | | T10-T11. | | | | Mild leftward curvature of the lumbar spine. Unchanged mild anterolisthesis of | | L5. | | | | Unchanged appearance of the recently described multilevel lumbar spondylosis | | with multilevel degenerative disc disease, disc protrusions/bulge and facet | | arthrosis. Unchanged spinal canal stenosis, mild at L3-L4, moderate L4-L5, and | | mild L5-S1. Stable varying degrees of neural foraminal stenosis, most notable at | | L5-S1 with severe left stenosis. | | | | | | IMPRESSION - | | | | Overall unchanged appearance at T11-T12 with persistent bone marrow edema, | | irregular endplate changes, and paravertebral soft tissue edema, most compatible | | with history of discitis osteomyelitis. No abscess identified. | | | | Stable multilevel lumbar spondylosis. | | | | Dictated and Signed by: Akash Ashraf MD | | Electronically signed: 05/23/2019 6:33 PM | + + + +---------+ + + | Performing | Address | City/State/Zipcode | Phone Number | | Organization | | | | + +---------+ + + | [facility] | | | | + +---------+ + + US Guided Thoracentesis wo Chest Tube (05/22/2019 3:16 PM PDT) + + | Specimen | + + | | + + + + + | Narrative | Performed At | + + + | US GUIDED THORACENTESIS WO CHEST TUBE 05/22/2019 2:36 PM HISTORY: | [facility] | | Would like to do US guided thoracentesis of moderate size left pleural | | | effusion, tomorrow. Thanks. See CT study. COMPARISON: None. | | | PROTOCOL: After explaining the risks and benefits of the procedure, | | | informed consent was obtained from the patient. Risks discussed | | | included bleeding, infection, and pneumothorax. Under ultrasound | | | guidance, the largest pocket of fluid was localized in the left lower | | | chest. This region was cleansed and draped in the usual sterile | | | fashion. Lidocaine was used for local anesthesia. A small skin tana | | | was made. Using a thoracentesis needle and trocar system, the pleural | | | space was accessed. There was return of clear yellow. Subsequently, | | | 1300 mL of the fluid was aspirated and sent to the laboratory. The | | | patient tolerated the procedure well. IMPRESSION - Successful | | | ultrasound-guided thoracentesis. Dictated and Signed by: Salvatore | | | MD Enrique Electronically signed: 05/22/2019 3:29 PM | | + + + + + | Procedure Note | + + | Julian, Rad Results In - 05/22/2019 3:32 PM PDT US GUIDED THORACENTESIS WO CHEST TUBE | | 05/22/2019 2:36 PMHISTORY: Would like to do US guided thoracentesis of moderate size left | | pleuraleffusion, tomorrow. Thanks. See CT study.COMPARISON: None.PROTOCOL:After | | explaining the risks and benefits of the procedure, informed consent wasobtained from | | the patient. Risks discussed included bleeding, infection, andpneumothorax. Under | | ultrasound guidance, the largest pocket of fluid waslocalized in the left lower chest. | | This region was cleansed and draped in theusual sterile fashion. Lidocaine was used for | | local anesthesia. A small skinnick was made. Using a thoracentesis needle and trocar | | system, the pleural spacewas accessed. There was return of clear yellow. Subsequently, | | 1300 mL of thefluid was aspirated and sent to the laboratory. The patient tolerated | | theprocedure well.IMPRESSION -Successful ultrasound-guided thoracentesis.Dictated and | | Signed by: Salvatore Nunez MD Electronically signed: 05/22/2019 3:29 PM | |usual sterile fashion. Lidocaine was used for local anesthesia. A small skin | |tana was made. Using a thoracentesis needle and trocar system, the pleural space | |was accessed. There was return of clear yellow. Subsequently, 1300 mL of the | |fluid was aspirated and sent to the laboratory. The patient tolerated the | |procedure well. | | | |IMPRESSION - | |Successful ultrasound-guided thoracentesis. | | | |Dictated and Signed by: Salvatore Nunez MD | | Electronically signed: 05/22/2019 3:29 PM | + + + +---------+ + + | Performing | Address | City/State/Zipcode | Phone Number | | Organization | | | | + +---------+ + + | [facility] | | | | + +---------+ + + Lactate Dehydrogenase, Body Fluid (05/22/2019 3:15 PM PDT) + + + + + + | Component | Value | Ref Range | Performed | Pathologist | | | | | At | Signature | + + + + + + | LDH, BODY | 117 | U/L | [facility] | | | FLUID | | | [facility] | | | | | | MEDICAL | | | | | | CENTER - | | | | | | LABORATORY | | + + + + + + | Specimen | Pleural Fluid, Left | | [facility] | | | Source | | | [facility] | | [...] + | [facility] | [address] | [place] | [phone] | | [facility] | | [address] | | | - LABORATORY | | | | + + + + + Culture, Body Fluid, Aerobe (05/22/2019 3:09 PM PDT) + + + + + + | Component | Value | Ref Range | Performed | Pathologist | | | | | At | Signature | + + + + + + | Culture | No Growth | | [facility] | | | | [...] [address] | [place] | [phone] | | [facility] | | [address] | | | - LABORATORY | | | | + + + + + CULTURE, FUNGUS (REFLEX RESULTS ONLY) (05/22/2019 3:09 PM PDT) + + + + + + | Component | Value | Ref Range | Performed | Pathologist | | | | | At | Signature | + + + + + + | Result | CommentComment: No yeast | | [facility] | | | | or mold isolated after | | [facility] | | | | 4 weeks. | | - [facility] | | + + + + + + + + | Specimen | + + | Body Fluid - Pleural | | fluid specimen | | (specimen) | + + + + + | Narrative | Performed At | + + + | Performed at: 02 [address] [facility], | REFERENCE LAB | | [place], [place] [id number] Oil Expeller: Violette Mcconnell MD, Phone: | [facility] | | [phone] | | + + + + + + + + | Performing | Address | City/State/Zipcode | Phone Number | | Organization | | | | + + + + + | REFERENCE LAB | [address] | [place] [address] | [phone] | | [facility] | [address] | | | + + + + + RESULT 29, (REF) (RESULT ONLY) (05/22/2019 3:09 PM PDT) + + + + + + | Component | Value | Ref Range | Performed | Pathologist | | | | | At | Signature | + + + + + + | Result | CommentComment: | | REFERENCE | | | | SIMEON/Calcofluor | | [facility] | | | | preparation: no fungus | | - [facility] | | | | observed. | | | | + + + + + + + + | Specimen | + + | Body Fluid | + + + + + | Narrative | Performed At | + + + | Performed at: [address] [place] [address], | REFERENCE LAB | | [place], [place] [id number] Oil Expeller: Ernie Lee MD, Phone: | [facility] | | [phone] | | + + + + + + + + | Performing | Address | City/State/Zipcode | Phone Number | | Organization | | | | + + + + + | REFERENCE LAB | [address] | [place] [address] | [phone] | | [facility] | [address] | | | + + + + + Culture, Fungus, Smear (05/22/2019 3:09 PM PDT) + + + + + + | Component | Value | Ref Range | Performed | Pathologist | | | | | At | Signature | + + + + + + | Fungus | Final report | | REFERENCE | | | Stain | | | [facility] | | | | | | - [facility] | | + + + + + + | Fungus | Final report | | REFER[facility] | | | (Mycology) | | | [facility] | | | Culture | | | - BKR | | + + + + + + + + | Specimen | + + | Body Fluid - Pleural | | fluid specimen | | (specimen) | + + + + + | Narrative | Performed At | + + + | Performed at: 01 - [facility] [id number], | REFERENCE LAB | | [place], [place] [id number] Oil Expeller: Ernie Lee MD, Phone: | [facility] | | [phone] Performed at: 02 - [facility] [place] [address] | | | [place] [id number] Oil Expeller: Violette Mcconnell MD, | | | Phone: [phone] | | + + + + + + + + | Performing | Address | City/State/Zipcode | Phone Number | | Organization | | | | + + + + + | [facility] | [address] | [place] [address] | [phone] | | [facility] | Kaitlyn Elkins | | | + + + + + Culture, Body Fluid, Anaerobe (05/22/2019 3:09 PM PDT) + + + + + [...] + | [facility] | [address] | [place] | [phone] | | [facility] | | [address] | | | - LABORATORY | | | | + + + + + Cell Count with Differential, Body Fluid (05/22/2019 3:09 PM PDT) + + + + + + | Component | Value | Ref Range | Performed | Pathologist | | | | | At | Signature | + + + + + + | Specimen | Pleural Fluid, Left | | [facility] | | | Source | | | [facility] | | | | | | MEDICAL | | | | | | CENTER - | | | | | | LABORATORY | | + + + + + + | BF Color | Yellow (A) | (none) | [facility] | | | | | | [facility] | | | | | | MEDICAL | | | | | | CENTER - | | | | | | LABORATORY | | + + + + + + | BF | Clear | Clear | [facility] | | | Appearance | | | [facility] | | | | | | MEDICAL | | | | | | CENTER - | | | | | | LABORATORY | | + + + + + + | BF | 110 | 0 - 150 | [facility] | | | Nucleated | | cells/uL | [facility] | | | cells | | | MEDICAL | | | | | | CENTER - | | | | | | LABORATORY | | + + + + + + | BF RBC | <2000 | Reference Range | [facility] | | | | | Not | [facility] | | | | | Established | MEDICAL | | | | | cells/uL | CENTER - | | | | | | LABORATORY | | + + + + + + | % | 89.1 | % | [facility] | | | Mononuclear | | | [facility] | | | Cells, | | | MEDICAL | | | Body Fluid | | | CENTER - | | | | | | LABORATORY | | + + + + + + | BF | 10.9 | % | [facility] | | | Polynuclear | | | [facility] | | | % | | | MEDICAL | | | [...] + | [facility] | [address] | [place] | [phone] | | [facility] | | [address] | | | - LABORATORY | | | | + + + + + Protein, Body Fluid (05/22/2019 3:09 PM PDT) + + + + + + | Component | Value | Ref Range | Performed | Pathologist | | | | | At | Signature | + + + + + + | Specimen | Pleural Fluid, Left | | [facility] | | | Source | | | [facility] | | | | | | MEDICAL | | | | | | CENTER - | | | | | | LABORATORY | | + + + + + + | Protein, BF | 3.1 | g/dL | [facility] | | | | [...] [address] | [place] | [phone] | | [facility] | | [address] | | | - LABORATORY | | | | + + + + + Procalcitonin (05/21/2019 4:15 AM PDT) + + + + + [...] [address] | [place] | [phone] | | [facility] | | [address] | | | - LABORATORY | | | | + + + + + Protime INR (05/21/2019 4:15 AM PDT) + + + + + + | Component | Value | Ref Range | Performed | Pathologist | | | | | At | Signature | + + + + + + | Prothrombin | 14.7 (H) | 11.3 - 13.9 | [facility] | | | Time | | seconds | [facility] | | | | | | MEDICAL | | | | | | CENTER - | | | | | | LABORATORY | | + + + + + + | INR | 1.2 (H)Comment: Usual | 0.9 - 1.1 | [facility] | | | | Oral Anticoagulation | | [facility] | | | | Range: 2.0 - [...] + | [facility] | [address] | [place] | [phone] | | [facility] | | [address] | | | - LABORATORY | | | | + + + + + Magnesium (05/21/2019 4:15 AM PDT)Only the most recent of 2 results within the time period is included. + +-------+ + + + | Component | Value | Ref Range | Performed | Pathologist | | | | | At | Signature | + +-------+ + + + | Magnesium | 2.3 | 1.6 - 2.6 mg/dL | [facility] [...] [facility] | [address] | [place] | [phone] | | [facility] | | [address] | | | - LABORATORY | | | | + + + + + CT Chest w Contrast (05/21/2019 12:40 AM PDT) + + | Specimen | + + | | + + + + + | Narrative | Performed At | + + + | ENHANCED CHEST CT 05/20/2019 11:54 PM CLINICAL HISTORY: Eval for | [facility] | | pneumonia on L lung with opacity vs volume overload | | | COMPARISON: Radiography from the previous day, CT March 23 and more | | | remote imaging TECHNIQUE: Axial images are performed through the | | | chest following the uneventful intravenous administration of 75 mL | | | Omnipaque-350 contrast. Multiplanar reformations are also performed. | | | FINDINGS: There is calcified plaque in the aorta and coronary | | | arteries, as well as as the great vessels. Heavily calcified | | | stenosis of the proximal left subclavian artery is again apparent. | | | The main pulmonary artery is again dilated up to a diameter of 3.6 | | | cm. Right internal jugular central venous catheter terminates at | | | the level of the right atrium. The heart appears at least | | | borderline to mildly enlarged. There is no pericardial effusion or | | | pneumothorax. Enlarged mediastinal lymph nodes are now present and | | | measure up to 19 mm short axis in the precarinal region. | | | Previously visible left pleural effusion has increased significantly | | | in volume from March 23 and is now moderate in size. A small volume | | | of dependent right pleural fluid is now present as well. There is | | | partial compressive atelectasis of the left lower lobe and lingula. | | | Bandlike opacities in the aerated left lung and scattered about the | | | right lung favor atelectasis as well. There is interlobular septal | | | thickening with patchy ground glass opacity in the right greater | | | than left upper lungs. Low-attenuation material in the mainstem | | | bronchi and right upper lobe bronchus may reflect retained secretions | | | or aspirate. Osteopenia is suggested. There are degenerative | | | changes of the sternoclavicular joints. Previously described | | | endplate erosion/irregularity and adjacent vertebral sclerosis at | | | T11-12 appear slightly more pronounced compared with imaging of March | | | . Moderate to severe disc space narrowing is again evident at | | | T10-11, without endplate irregularity. There is multilevel thoracic | | | spondylosis otherwise. Imaged upper abdomen is unremarkable. 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 IMPRESSION - | | | 1. MODERATE-SIZED LEFT PLEURAL EFFUSION AND SMALL RIGHT PLEURAL | | | EFFUSION, WITH PARTIAL COMPRESSIVE ATELECTASIS OF THE LEFT LOWER LOBE | | | AND LINGULA AND PROBABLE ADDITIONAL BANDLIKE ATELECTASIS ELSEWHERE | | | IN THE LUNGS. 2. INTERLOBULAR SEPTAL THICKENING AND PATCHY UPPER | | | LUNG PREDOMINANT GROUND GLASS OPACITY, SUSPICIOUS FOR PULMONARY | | | EDEMA. LOW-ATTENUATION MATERIAL IN THE MAINSTEM AND RIGHT UPPER | | | LOBE BRONCHI MAY REFLECT SECRETIONS OR ASPIRATE, AND ASSOCIATED | | | PNEUMONITIS CANNOT BE EXCLUDED. 3. NEWLY ENLARGED MEDIASTINAL | | | NODES, POTENTIALLY REACTIVE. 4. ATHEROSCLEROSIS, AT LEAST | | | BORDERLINE TO MILD CARDIOMEGALY AND ENLARGEMENT OF THE MAIN PULMONARY | | | ARTERY, SUGGESTING PULMONARY ARTERIAL HYPERTENSION. 5. SLIGHTLY | | | MORE PRONOUNCED ENDPLATE EROSION/IRREGULARITY AT T11-12. | | | DISCITIS/OSTEOMYELITIS REMAINS A CONCERN. Preliminary results of | | | this study were reported by the [facility] radiologist on | | | May 21, 2019 at 0200 hours. Dictated and Signed by: Arun Hodge MD Electronically signed: 05/21/2019 10:22 AM | | + + + + + | Procedure Note | + + | Julian, Rad Results In - 05/21/2019 10:25 AM PDT ENHANCED CHEST CT 05/20/2019 11:54 PM | | | | CLINICAL HISTORY: Eval for pneumonia on L lung with opacity vs volume overload | | | | | | COMPARISON: Radiography from the previous day, CT March 23 and more remote | | imaging | | | | TECHNIQUE: Axial images are performed through the chest following the uneventful | | intravenous administration of 75 mL Omnipaque-350 contrast. Multiplanar | | reformations are also performed. | | | | FINDINGS: There is calcified plaque in the aorta and coronary arteries, as well | | as as the great vessels. Heavily calcified stenosis of the proximal left | | subclavian artery is again apparent. The main pulmonary artery is again dilated | | up to a diameter of 3.6 cm. Right internal jugular central venous catheter | | terminates at the level of the right atrium. The heart appears at least | | borderline to mildly enlarged. There is no pericardial effusion or | | pneumothorax. Enlarged mediastinal lymph nodes are now present and measure up | | to 19 mm short axis in the precarinal region. | | | | Previously visible left pleural effusion has increased significantly in volume | | from March 23 and is now moderate in size. A small volume of dependent right | | pleural fluid is now present as well. There is partial compressive atelectasis | | of the left lower lobe and lingula. Bandlike opacities in the aerated left lung | | and scattered about the right lung favor atelectasis as well. There is | | interlobular septal thickening with patchy ground glass opacity in the right | | greater than left upper lungs. Low-attenuation material in the mainstem bronchi | | and right upper lobe bronchus may reflect retained secretions or aspirate. | | | | Osteopenia is suggested. There are degenerative changes of the sternoclavicular | | joints. Previously described endplate erosion/irregularity and adjacent | | vertebral sclerosis at T11-12 appear slightly more pronounced compared with | | imaging of March 23. Moderate to severe disc space narrowing is again evident at | | T10-11, without endplate irregularity. There is multilevel thoracic spondylosis | | otherwise. Imaged upper abdomen is unremarkable. Changes of left mastectomy | | are again apparent. | | | | IMPRESSION - | | 1. MODERATE-SIZED LEFT PLEURAL EFFUSION AND SMALL RIGHT PLEURAL EFFUSION, WITH | | PARTIAL COMPRESSIVE ATELECTASIS OF THE LEFT LOWER LOBE AND LINGULA AND PROBABLE | | ADDITIONAL BANDLIKE ATELECTASIS ELSEWHERE IN THE LUNGS. | | | | 2. INTERLOBULAR SEPTAL THICKENING AND PATCHY UPPER LUNG PREDOMINANT GROUND | | GLASS OPACITY, SUSPICIOUS FOR PULMONARY EDEMA. LOW-ATTENUATION MATERIAL IN THE | | MAINSTEM AND RIGHT UPPER LOBE BRONCHI MAY REFLECT SECRETIONS OR ASPIRATE, AND | | ASSOCIATED PNEUMONITIS CANNOT BE EXCLUDED. | | | | 3. NEWLY ENLARGED MEDIASTINAL NODES, POTENTIALLY REACTIVE. | | | | 4. ATHEROSCLEROSIS, AT LEAST BORDERLINE TO MILD CARDIOMEGALY AND ENLARGEMENT OF | | THE MAIN PULMONARY ARTERY, SUGGESTING PULMONARY ARTERIAL HYPERTENSION. | | | | 5. SLIGHTLY MORE PRONOUNCED ENDPLATE EROSION/IRREGULARITY AT T11-12. | | DISCITIS/OSTEOMYELITIS REMAINS A CONCERN. | | | | Preliminary results of this study were reported by the [facility] | | radiologist on May 21, 2019 at 0200 hours. | | | | Dictated and Signed by: Arun Hodge MD | | Electronically signed: 05/21/2019 10:22 AM | + + + +---------+ + + | Performing | Address | City/State/Zipcode | Phone Number | | Organization | | | | + +---------+ + + | [facility] | | | | + +---------+ + + Medical Cytology (05/21/2019 12:00 AM PDT) + + | Specimen | + + | Body Fluid - Pleural | | fluid specimen | | (specimen) | + + + + + | Narrative | Performed At | + + + | ORDERING PHYSICIAN: Gopi Muñoz MD PATIENT NAME: | [facility] | | ARA CAMPOS GENDER: F : 1945 | [place] | | SPECIMEN(S): A PLEURAL FLUID, LEFT GROSS DESCRIPTION: 1,600 ML | | | OF CLEAR, YELLOW FLUID (FRESH) CLINICAL HISTORY: NO CLINICAL | | | DATA PROVIDED LABORATORY PREPARATIONS: 1 MONOLAYER, 1 CYTOLOGY | | | CELL BLOCK CYTOLOGIC INTERPRETATION: Pleura, left, fluid: | | | Negative for malignant cells. DESCRIPTION: The preparations | | | contain mesothelial cells, rare inflammatory cells, and acellular | | | proteinaceous material. Atypical cytologic findings are not | | | encountered. PERFORMING LABORATORY: Technical preparation was | | | performed by [employer] [address] [place] | | | [place] [address] and [employer], [place] [address] | | | [place] [address]. Professional interpretation was performed | | | by [employer] - [facility] - [address] | | | [place] [address] (Substation Inspector: Alen Simpson | | | ; [facility]#:[id number]).8 Diagnostician: Darcie López M.S., | | | CT(ASCP), [facility] Customs Compliance Specialist Diagnostician: Alen Restrepo | | | Calvin HOLDEN Pathologist Electronically Signed 05/23/2019 | | + + + + +---------+ + + | Performing | Address | City/State/Zipcode | Phone Number | | Organization | | | | + +---------+ + + | [facility] | | | | | [place] | | | | + +---------+ + + XR Chest AP Portable (05/20/2019 9:42 PM PDT) + + | Specimen | + + | | + + + + + | Narrative | Performed At | + + + | SINGLE AP CHEST 05/20/2019 9:35 PM CLINICAL HISTORY: Eval for | [facility] | | volume overload COMPARISON: CT March 23, radiography December 04 and | | | more remote imaging FINDINGS: A right internal jugular central | | | venous catheter is now present and terminates at the level of the | | | high right atrium. Prominence of the cardiac silhouette and | | | pulmonary vasculature persist. There is increased dense opacity | | | throughout the left base with increased patchy opacity in the left mid | | | and upper lung. Dependent pleural fluid is visible. Patchy | | | opacity is now evident in the right mid lung also. No pneumothorax | | | is visible. Osteopenia is suggested. IMPRESSION - 1. | | | PERSISTENT PROMINENCE OF THE CARDIAC SILHOUETTE AND PULMONARY | | | VASCULATURE WITH INCREASED LEFT PLEURAL EFFUSION AND | | | ATELECTASIS/CONSOLIDATION INVOLVING MUCH OF THE LEFT LUNG. SOME | | | NON-SPECIFIC PATCHY RIGHT MID LUNG OPACITY IS NOW EVIDENT WELL. | | | 2. RIGHT INTERNAL JUGULAR CENTRAL VENOUS CATHETER TERMINATING AT | | | THE LEVEL OF THE HIGH RIGHT ATRIUM. Dictated and Signed by: Arun Wang | | MD Naveen Electronically signed: 05/21/2019 5:53 AM | | + + + + + | Procedure Note | + + | Julian, Rad Results In - 05/21/2019 5:57 AM PDT SINGLE AP CHEST 05/20/2019 9:35 PM | | | | CLINICAL HISTORY: Eval for volume overload | | | | COMPARISON: CT March 23, radiography December 04 and more remote imaging | | | | FINDINGS: A right internal jugular central venous catheter is now present and | | terminates at the level of the high right atrium. Prominence of the cardiac | | silhouette and pulmonary vasculature persist. There is increased dense opacity | | throughout the left base with increased patchy opacity in the left mid and upper | | lung. Dependent pleural fluid is visible. Patchy opacity is now evident in the | | right mid lung also. No pneumothorax is visible. Osteopenia is suggested. | | | | IMPRESSION - | | | | 1. PERSISTENT PROMINENCE OF THE CARDIAC SILHOUETTE AND PULMONARY VASCULATURE | | WITH INCREASED LEFT PLEURAL EFFUSION AND ATELECTASIS/CONSOLIDATION INVOLVING | | MUCH OF THE LEFT LUNG. SOME NON-SPECIFIC PATCHY RIGHT MID LUNG OPACITY IS NOW | | EVIDENT WELL. | | | | 2. RIGHT INTERNAL JUGULAR CENTRAL VENOUS CATHETER TERMINATING AT THE LEVEL OF | | THE HIGH RIGHT ATRIUM. | | | | Dictated and Signed by: Arun Hodge MD | | Electronically signed: 05/21/2019 5:53 AM | + + + +---------+ + + | Performing | Address | City/State/Zipcode | Phone Number | | Organization | | | | + +---------+ + + | [facility] | | | | + +---------+ + + Vitamin B-12 (05/20/2019 9:11 PM PDT) + + + + + + | Component | Value | Ref Range | Performed | Pathologist | | | | | At | Signature | + + + + + + | VITAMIN | 564Comment: DEFICIENT: | 156 - 672 pg/mL | [facility] | | | B-12 | <145 | | [facility] | | | | pg/mLINDETERMINATE: | | MEDICAL | | | | 145-180 pg/mL | | CENTER - | | | [...] [address] | [place] | [phone] | | [facility] | | [address] | | | - LABORATORY | | | | + + + + + Type and Screen (05/20/2019 9:11 PM PDT) + + + + + + | Component | Value | Ref Range | Performed | Pathologist | | | | | At | Signature | + + + + + + | ABO | B | | [facility] | | | | | | [facility] | | | | | | MEDICAL | | | | | | CENTER - | | | | | | BLOOD BANK | | + + + + + + | Rh Type | Positive | | [facility] | | | | | | [facility] | | | | | | MEDICAL | | | | | | CENTER - | | | | | | BLOOD BANK | | + + + + + + | Antibody | Negative | | [facility] | | | Screen | | | [facility] | | | | | | MEDICAL | | | | | | CENTER - | | | | | | BLOOD BANK | | + + + + + + + + | Specimen | + + | Blood | + + + + + + + | Performing | Address | City/State/Zipcode | Phone Number | | Organization | | | | + + + + + | [facility] | [address] | [place] | | | [facility] | | [address] | | | - BLOOD BANK | | | | + + + + + TSH (05/20/2019 9:11 PM PDT) + + + + + + | Component | Value | Ref Range | Performed | Pathologist | | | | | At | Signature | + + + + + + | TSH | 8.54 (H) | 0.55 - 4.78 | [facility] | | | | | uIU/mL | [facility] | | | | [...] + | [facility] | [address] | [place] | [phone] | | [facility] | | [address] | | | - LABORATORY | | | | + + + + + Troponin I (05/20/2019 8:51 PM PDT) + + + + + + | Component | Value | Ref Range | Performed | Pathologist | | | | | At | Signature | + + + + + + | Troponin I | 0.06 (H)Comment: | <0.06 ng/mL | [facility] | | | | Comment:Reference | | [facility] | | | | Ranges: 0.00-0.06 = [...] | | | | | | [employer] | | | | | [...] + | [facility] | [address] | [place] | [phone] | | [facility] | | [address] | | | - LABORATORY | | | | + + + + + Phosphorus (05/20/2019 8:51 PM PDT) + + + + + + | Component | Value | Ref Range | Performed | Pathologist | | | | | At | Signature | + + + + + + | Phosphorus | 8.8 ()Comment: | 2.4 - 5.1 mg/dL | [facility] | | | | Critical Result called | | [facility] | | | | to and read back by | | MEDICAL | | | | Nan Jackson RN | | CENTER - | | | | on 05/20/2019 at 21:52 by | | LABORATORY | | | | Lincoln He. | | | | + + + + + + + + | Specimen | + + | Blood | + + + + + + + | Performing | Address | City/State/Zipcode | Phone Number | | Organization | | | | + + + + + | [facility] | [address] | [place] | [phone] | | [facility] | | [address] | | | - LABORATORY | | | | + + + + + B Type Natriuretic Peptide (05/20/2019 8:51 PM PDT) + + + + + + | Component | Value | Ref Range | Performed | Pathologist | | | | | At | Signature | + + + + + + | BNP | >5000 (H) | <100 pg/mL | [facility] | | [address] | [place] | [phone] | | [facility] | | [address] | | | - LABORATORY | | | | + + + + + Hepatic Function Panel (05/20/2019 8:51 PM PDT) + +-------+ + + + | Component | Value | Ref Range | Performed | Pathologist | | | | | At | Signature | + +-------+ + + + | Bilirubin | 0.3 | 0.3 - 1.2 mg/dL | [facility] | | | Total | | | [facility] | | | | | | MEDICAL | | | | | | CENTER - | | | | | | LABORATORY | | + +-------+ + + + | Total | 6.8 | 5.7 - 8.2 g/dL | [facility] | | | Protein | | | [facility] | | | | | | MEDICAL | | | | | | CENTER - | | | | | | LABORATORY | | + +-------+ + + + | Albumin | 3.2 | 3.2 - 4.8 g/dL | [facility] | | | | | | [facility] | | | | | | MEDICAL | | | | | | CENTER - | | | | | | LABORATORY | | + +-------+ + + + | AST | 12 | 0 - 34 U/L | [facility] | | | | | | [facility] | | | | | | MEDICAL | | | | | | CENTER - | | | | | | LABORATORY | | + +-------+ + + + | ALT | 7 (L) | 10 - 49 U/L | [facility] | | | | | | [facility] | | | | | | MEDICAL | | | | | | CENTER - | | | | | | LABORATORY | | + +-------+ + + + | Alkaline | 53 | 46 - 116 U/L | [facility] | | | Phosphatase | | | [facility] | | | | | | MEDICAL | | | | | | CENTER - | | | | | | LABORATORY | | + +-------+ + + + | Globulin | 3.6 | 2.1 - 3.8 g/dL | [facility] | | | | | | [facility] | | | | | | MEDICAL | | | | | | CENTER - | | | | | | LABORATORY | | + +-------+ + + + | Albumin/Shereen | 0.9 | 0.8 - 1.9 | [facility] | | | bulin Ratio | | | [facility] | | | | | | MEDICAL | | | | | | CENTER - | | | | | | LABORATORY | | + +-------+ + + + | Bilirubin, | 0.10 | 0.00 - 0.30 | [facility] | | | Direct | | mg/dl | [facility] | | | | [...] + | [facility] | [address] | [place] | [phone] | | [facility] | | [address] | | | - LABORATORY | | | | + + + + + Basic Metabolic Panel (05/20/2019 8:51 PM PDT) + + + + + + | Component | Value | Ref Range | Performed | Pathologist | | | | | At | Signature | + + + + + + | Na | 134 (L) | 136 - 145 | [facility] [...] | Cl | 99 | 98 - 107 mmol/L | [facility] [...] + + + + | Glucose | 109 (H) | 60 - 106 mg/dL | [facility] | | | | | | [facility] | | | | | | MEDICAL | | | | | | CENTER - | | | | | | LABORATORY | | + + + + + + | BUN | 46 (H) | 9 - 23 mg/dL | [facility] | | | | | | [facility] | | | | | | MEDICAL | | | | | | CENTER - | | | | | | LABORATORY | | + + + + + + | Creatinine | 7.11 (H) | 0.55 - 1.02 | [facility] [...] | | | FILTRATION | mL/min/1.73m2 | [facility] | | | [place] | RATE,ESTIMATED | | MEDICAL | | | | mL/min/1.15n4Mhxs than | | CENTER - | | [...] + + + + | BUN/Creatin | 6.5 | | [facility] | | | ine [...] [address] | [place] | [phone] | | [facility] | | [address] | | | - LABORATORY | | | | + + + + + POC Blood Gases (05/20/2019 8:42 PM PDT) + + + + + + | Component | Value | Ref Range | Performed | Pathologist | | | | | At | Signature | + + + + + + | Specimen | Vein | | [facility] | | | Source | | | [facility] | | | | | | MEDICAL | | | | | | CENTER - | | | | | | LABORATORY | | + + + + + + | pH, POC | 7.356 | 7.3 - 7.45 | [facility] | | | | | | [facility] | | | | | | MEDICAL | | | | | | CENTER - | | | | | | LABORATORY | | + + + + + + | HCO3, POC | 25.7 | 21.0 - 28.0 | [facility] | | | | | mmol/L | [facility] | | | | | | MEDICAL | | | | | | CENTER - | | | | | | LABORATORY | | + + + + + + | TCO2, POC | 27.1 | 22.0 - 29.0 | [facility] | | | | | mmol/L | [facility] | | | | | | MEDICAL | | | | | | CENTER - | | | | | | LABORATORY | | + + + + + + | Base | -0.1 | -2.0 - 3.0 | [facility] | | | Excess, POC | | mmol/L | [facility] | | | | | | MEDICAL | | | | | | CENTER - | | | | | | LABORATORY | | + + + + + + | Base | 0.2 | -2.0 - 3.0 | [facility] | | | Excess, | | mmol/L | [facility] | | | Extracellul | | | MEDICAL | | | ar fluid, | | | CENTER - | | | POC | | | LABORATORY | | + + + + + + | O2 Sat, POC | 60 (L) | 90 - 100 % | [facility] | | | | | | [facility] | | | | | | MEDICAL | | | | | | CENTER - | | | | | | LABORATORY | | + + + + + + | PCO2, POC | 45.9 (H) | 35 - 45 mmHg | [facility] | | | | | | [facility] | | | | | | MEDICAL | | | | | | CENTER - | | | | | | LABORATORY | | + + + + + + | pO2, POC | 33 (L) | 60 - 750 mmHg | [facility] | | | | | [...] [address] | [place] | [phone] | | [facility] | | [address] | | | - LABORATORY | | | | + + + + + Culture, MRSA (05/20/2019 8:22 PM PDT) + + + + + + | Component | Value | Ref Range | Performed | Pathologist | | | | | At | Signature | + + + + + + | Culture | Negative for MRSA by | | [facility] | | | | chromogenic agar method. | | [facility] | | | | | | MEDICAL | | | | | | CENTER - | | | | | | LABORATORY | | + + + + + + | Culture | 2+ Coagulase positive | | [facility] | | | | Staphylococcus | | [facility] | | | | | | MEDICAL | | | | | | CENTER - | | | | | | LABORATORY | | + + + + + + + + | Specimen | + + | Tissue - Both | | anterior nares (body | | structure) | + + + + + + + | Performing | Address | City/State/Zipcode | Phone Number | | Organization | | | | + + + + + | [facility] | [address] | [place] | [phone] | | [facility] | | [address] | | | - LABORATORY | | | | + + + + + IMAGING REPORT - EXTERNAL SCAN (05/20/2019 12:00 AM PDT) + + + | Narrative | Performed At | + + + | Ordered by an | | | unspecified provider. | | + + + Culture, Blood, 2nd Specimen (05/18/2019 3:48 PM [...] | | [facility]FER[facility] | | | | [facility];[address] | | LAB | | | | [address]vd;[place] | | [place] | | | | [id number]: Testing | | LABORATORY | | | | performed at [facility], [address] | [address], | | | | | | [place] [address] | | | | + + + + + + + + | Specimen | + + | | + + + + + + + | Performing | Address | City/State/Zipcode | Phone Number | | Organization | | | | + + + + + | REFERENCE LAB | [address] [place] [address] | [place] [address] | [phone] | | [facility] | Blvd. | | | | LABORATORY | | | | + + + + + | REFERENCE LAB | [address] [place] [address] | [place] [address] | | | [facility] | Blvd. | [...] | | | | | | MDRD IDTX traceable | | | | | | equation.Testing | | | | | | performed at [facility];[id number] | | | | | [facility] | | | | | | Blvd;[place] [address] | | | | | | | | | | + + + + + + + + | Specimen | + + | Blood | + + + + + + + | Performing | Address | City/State/Zipcode | Phone Number | | Organization | | | | + + + + + | REFERENCE LAB | [address] [facility] | [place] [address] | [phone] | | [facility] | Blvd. | | | | LABORATORY | | | | + + + + + | REFERENCE LAB | [address] [facility] | [place] [address] | | | [facility] | Blvd[address] | [...] REFERENCE | | | | TC;[address] | | LAB | | | | [address]vd;[place], [place] | | [facility] | | | | [id number]: Testing | | LABORATORY | | | | performed at [facility], [address] | [address], | | | | | | [place] [address] | | | | + + + + + + + + | Specimen | + + | Blood - Structure of | | antecubital vein | | (body structure) | + + + + + + + | Performing | Address | City/State/Zipcode | Phone Number | | Organization | | | | + + + + + | REFERENCE LAB | [address] [place] [address] | [place] [address] | [phone] | | [facility] | Blvd. | | | | LABORATORY | | | | + + + + + | REFERENCE LAB | [address] [place] [address] | [place] [address] | | | [facility] | Blvd. | | | | LABORATORY | | | | + + + + + LABS - EXTERNAL SCAN (05/12/2019 12:00 AM PDT) + + + | Narrative | Performed At | + + + | Ordered by an | | | unspecified provider. | | + + + from Last 3 Months Insurance + +--------+ +--------+ +---------+--------+ | Payer | Benefi | Subscriber | Effect | Phone | Address | Type | | | t Plan | ID | lashawn | | | | | | / | | Dates | | | | | | Group | | | | | | + +--------+ +--------+ +---------+--------+ | MEDICARE | MEDICA | [id number] | 04/13/20 | [phone] | | Medica | | | RE | | 11-Pre | 5 | | re | | | PART A | | sent | | | | | | AND B | | | | | | + +--------+ +--------+ +---------+--------+ | MEDICARE | MEDICA | [id number] | 04/13/20 | [phone] | | Medica | | | RE | | 11-Pre | 5 | | re | | | PART A | | sent | | | | | | AND B | | | | | | + +--------+ +--------+ +---------+--------+ | [place]ID [place] | MEDICA | [id number] | 03/13/20 | [phone] | | Medica | | | ID [place] | | 17-Pre | 2 | | id | | | PLUS | | sent | | | | + +--------+ +--------+ +---------+--------+ | [facility] | IHS | [id number] | | | | Indemn | | SERVICE | YELLOW | | 017-Pr | | | ity | | | HAWK | | esent | | | | + +--------+ +--------+ +---------+--------+ + +--------+ +--------+ + + | Guarantor Name | Accoun | Relation to | Date | Phone | Billing Address | | | t Type | Patient | of | | | | | | | | | | + +--------+ +--------+ + + | Ara Campos | Person | Self [birth year] | [address] | | | al/Fam | | 1945 | [phone] | [place] [address] | | | natali | | | 7 (Home) | | | | | | | [phone] | | | | | | | 0 (Work) | | + +--------+ +--------+ + + | Ara Campos | Person | Self | [birth year] | [address] | | | al/Fam | | 1945 | [phone] | [place] [address] | | | natali | | | 7 (Home) | | | | | | | [phone] | | | | | | | 0 (Work) | | + +--------+ +--------+ + + Advance Directives + + + + + | Type | Date Recorded | Patient | Explanation | | | | Hides Soaker | | + + + + + | Power of | | | | | Bi Application Developer | | | | + + + + + | Advance | 01/04/2018 2:03 | | LIVING WILL | | Directive | PM | | | + + + + + + + + + + | Code Status | Date | Date | Comments | | | Activated | Inactivated | | + + + + + | DNR (No | 05/20/2019 | 05/25/2019 | | | Code) | 8:41 PM | 4:11 PM | | + + + + + + + +---+ | RN or MD to pronounce: | RN may | | | | pronounce | | + + +---+ + + + +---+ | | | | | + + + +---+ | Full Code | 03/24/2019 | 03/31/2019 | | | | 1:59 AM | 7:48 PM | | + + + +---+ + + + +---+ | | | | | + + + +---+ | Full Code | 12/04/2018 | 12/09/2018 | | | | 7:55 PM | 8:38 PM | | + + + +---+ + + + +---+ | | | | | + + + +---+ | Full Code | 02/05/2018 | 02/05/2018 | | | | 12:36 AM | 4:35 AM | | + + + +---+ + + + +---+ | | | | | + + + +---+ | Full Code | 01/04/2018 | 01/04/2018 | | | | 4:11 PM | 7:44 PM | | + + + +---+
--- OUTSIDE RECORDS SUMMARY | ~2019-07-27 | XMS | Encounter Summary ---
Demographics + + + | Address | [address] | | | [place] [address] | + + + | Home Phone [...] | Author | [facility] | | | and Kamaljitana | + + + | Organization | [facility] | | | and [place] | + + + | Address | Unknown | + + + | Phone | Unavailable | + + + Support + + + + + | Name | Relationship | Address | Phone | + + + + + | India Tilley | ECON | [address] | | | | | [place], [place] | | | | | [address] | | + + + + + | Yina La | ECON | Unknown | | + + + + + | Yina Peterson | ECON | Unknown | | + + + + + | Leatha Casillas | ECON | Unknown | | + + + + + Care Team Providers + +------+ + | Care Concrete Pavement Installer Name | Role | Phone | [...] Line | | | | [address] [place] | [place] [address] | | | | | [address] | [phone] | | | | | [phone] | | | +--------+---------+ + + + [...] Up Appointments: ELI BALL [address] [facility] [phone] [facility] [address] [place] [id number] [facility] [address] [facility] [phone] Discharge Disposition: Home with Home Health Consultants This Admission: ID, Nephrology Hospital Course: 73-year-old female with history of ESRD on hemodialysis, hypertension, type 2 diabetes, hyp othyroidism, chronic anemia, hyperlipidemia with a history of stroke transferred from [facility] for evaluation of T11-T12 lesion noted on [...] initially had planned to go to SNF ([facility] in [place], [place] - of which has accepted her and [...] dialysis days after dialysis Osteomyelitis/Discitis of T11, [id number] -MRI spine 03/23/19: "mild paravertebral soft tissue [...] dialysis patient - has OP clinic in [place] already Macrocytic anemia likely secondary to-likely anemia [...] Value Units Date/Time Culture, Aerobic + Anaerobic [[id number]] Collected: 03/24/191513 Order Status: Completed Lab Status: Final result Updated: 03/29/19717 Specimen: Body Fluid from Vertebrae, Thoracic FINAL REPORT -- No Growth No anaerobes isolated Gram Stain Few Neutrophils No squamous epithelial cells seen No organisms seen Comment: Performed by [facility] [address] [place] [address] Gram Stain [[id number]] Collected: 03/24/19 151 Order Status: Canceled Lab Status: No result Updated: 03/24/19 151 Specimen: Body Fluid from Vertebrae, Thoracic Culture, AFB Smear [[id number]] Collected: 03/24/191513 Order Status: Completed Lab Status: Preliminary result Updated: 03/25/19 1054 Specimen: Body Fluid from Vertebrae, Thoracic AFB Smear Result No Acid Fast Bacilli Seen Comment: Performed by [facility] [address] [place] [address] Culture, Fungus, Smear [[id number]] Collected: 03/24/19 151 Order Status: Completed Lab Status: Preliminary result Updated: 03/25/19 1039 Specimen: Body Fluid from Vertebrae, Thoracic CALCOFLUOR No fungal elements seen Comment: Performed by [facility] [address] [place] [address] Culture, Blood [[id number]] Collected: 03/23/19 2333 Order Status: Completed Lab Status: Final result Updated: 03/28/19 2352 Specimen: Blood Culture No growth after 5 days incubation. Culture, Blood [[id number]] Collected: 03/23/19 2255 Order Status: Completed Lab Status: Final result Updated: 03/28/19 7429 Specimen: Blood Culture No growth after 5 [...] this chart may have been created with [employer] voice recognition software. Occasi onal wrong-word or [...] | | | ([facility]), Right hip | | | | [...] 03/31/2019 5:42 PM PDTPatient left with family, [facility] and i nstructions received before discharge and RX's filled at outpt pharmacy. VSS, ambulating wit h SBA, A&O x4, accepting of discharge. Dialysis completed this AM. Pain controlled with q4 o xy, LD 1400. Home health will f/u tomorrow. AVS reviewed and sent with patient, verbalized u nderstanding. Merry Hess BODY COMPONENT ENGINEER - 03/31/2019 11:05 AM PDTSOCIAL WORK PLAN: Home with [facility] NEXT STEPS: 1. Pt to follow up with [facility] 2. [facility] to follow up with pt at dc INTERVENTION: SW spoke with [facility], pt has a $2.50 out of pocket cost weekly, pt is agreeable to pay for this. Therefore pt will dc today with [facility]. ROBIN provided [facility] with hard script for IV abx. ROBIN faxed over HH order to [facility], ROBIN faxed over IV vanco script to [facility]. [facility] notified of pt's dc home. notified. Candie to meet with pt later this afternoon for teach. ROBIN provided pt with 3 gas cards to assist with transportation. No further dc needs identified. SW received call from [facility] HD clinic that they cannot provide IV Vanco as Vanco h as not been consigned by Walking [employer] that [place] in [place]. IV Vanco will now be done b y [facility], [address] faxed over hard script to Candie. They will have both IV Abx ready and will teach pt shortly. No further dc needs identified. CONTACTS: Yina La: sister India Tilley: sister [place] Transportation: [place] Medicaid Transportation fax: [phone] [facility]: [phone] fax: [phone] [facility] [phone] [facility]: [phone] [facility]: [phone] [facility] FAX: [phone] Camryn Michelle DO Brandon - 03/31/2019 10:12 AM PDT Patient: Estefani Tilley Date of : 1945 Admit Date: 03/24/2019 Date of Service: 03/31/2019 PCP: Francisca oWmack PA-C Hospital Day: Hospital Day: 8 Hospital Course: 73-year-old female with history of ESRD on hemodialysis, hypertension, type 2 diabetes, hyp othyroidism, chronic anemia, hyperlipidemia with a history of stroke transferred from [facility] for evaluation of T11-T12 lesion noted on [...] initially had planned to go to SNF ([facility] in [place], [place] - of which has accepted her [...] dialysis patient - has OP clinic in [place] already Macrocytic anemia likely secondary to-likely anemia [...] hoping to arrange home IV antibiotics through [facility]. Awaiting to see if insurance will cover [...] 99 mg/dL Final Comment: Performed by [facility] [address] [place] [address] 03/30/2019 21:14 200 (H) 65 - 99 mg/dL Final Comment: Performed by [facility] [address] [place] [address] 03/30/2019 17:46 111 (H) 65 - 99 mg/dL Final Comment: Performed by [facility] [address] [place] [address] 12/09/2018 18:05 113 (H) 70 - 109 [...] this chart may have been created with [employer] voice recognition software. Occasi onal wrong-word or sound-alike substitutions may have occurred due to the inherent mckeon itations of voice recognition software. Please read the chart carefully and recognize, using context, where these substitutions have occurred rgJesus mcdonald MD - 03/31/2019 8:26 AM PDT . Infectious Diseases Progress Note Pt. Name/Age/: Estefani Tilley 73 y.o. 1945 Med. Record Number: [id number] Date of admission: 03/24/2019 Patient admitted with [...] Electronically signed by: Jesus Whitney, 03/31/2019 8:26 [facility] Robb Phillips, PharmD - 03/31/2019 7:25 AM PDTFormatting of this note might be different from the [facility] nal. Pharmacy Progress Note VANCOMYCIN PER PHARMACY [...] mg/dL (H)). Lab Results Component Value Date/[facility] 03/31/2019 04:12 I/O last 3 completed shifts: In: 1810 [P.O.:1810] Out: 0 No intake/output data recorded. Micro/Cultures: BCx - NGTD, BiopsyCx - NGTD Per P&T-approved Vancomycin Protocol Electronically signed by: Robb Wheeler PharmD 03/31/2019 7:25 su, Randy Nunez MD - 03/30/2019 9:45 PM PDT [facility] INPATIENT ROUNDING NOTE Date of Service: 03/30/2019 Rounding Physician: Randy Corrigan MD Patient Name: Estefani Tilley : 1945 Medical Record: [id number] Hospital Summary: Estefani Tilley is a 73 [...] Trace Corrigan MD, 03/30/2019, 21:45 etNan wilkes, BODY COMPONENT ENGINEER - 03/30/2019 2:34 PM PDT SOCIAL WORK D/C PLAN:DC home with [facility] providing IV-ABX and [facility] providing picc care and lab draws vs [facility] NEXT STEPS: -SW will need to follow up with [facility] regarding providing IV-ABX to pt. -SW will need to follow up with [facility] regarding providing picc care and lab draws. -SW will need to follow up with [facility] regarding having pt receive vanco do se while at dialysis center if pt is to go home with IV-ABX -SW will need to follow up with [facility] if pt is unable to go home with IV-ABX rega ridng pt's DC -SW will need to fax SNF orders, scripts and PASRR to [facility] if pt is unable to go home -SW will need to provide gas cards to pt's family for transportation home. INTERVENTION:SW spoke with pt regarding acceptance to [facility]. Pt is now wanting to go home with IV-ABX. SW spoke with [facility]. They go out to [place], [place] and have openings for nursing care. Referral faxed to [facility]. Pt is amenable to using [facility] for IV-ABX. SW spoke with [facility] liasion who will run pt's be nefits to see if she can DC home with IV-ABX. Pt states that [facility] can provide teach to her son to help administer IV-ABX. SW left message for [facility] to see if they can provide vanco dose to pt at [facility] on Wednesday, Wednesday and Wednesday if pt is able to go home. Pt states that she does dialysis on Wednesday, Wednesday and Wednesday from 12:00-4:00. SW received phone call from [facility]. They have accepted pt for admission if [...] if pt is going to go to [facility]. ASSESSMENT/CHART REVIEW:73 yr old femalewith a history of ESRD on hemodialysis, hypertens ion, type 2 diabetes, hypothyroidism,chronic anemia,hyperlipidemia, hx of stroke [facility] lesion noted on MRI concerning fo r osteomyelitis. ROBIN met with pt's sister, Yina, and her cousin, Keri, who were waiting in pt's room while s he was in dialysis. ROBIN will need to follow up with pt re: d/c planning. Pt's sister and cousin related that pt mostly lives at Yina's house outside [place], [place], but does not like to be tied down because she enjoys attending [place] festivals and many events. She does at tend dialysis weekly. Pt has a vehicle and is very independent. D/C TRANSPORT:Pt can be transported home or to [facility] via family in a private car. They will need gas cards to help pay for transportation. BARRIERS TO D/C:none CONTACTS: Yina La: sister India Tilley: sister [place] Transportation: [place] Medicaid Transportation fax: [phone] [facility]: [phone] fax: [phone] [facility] [phone] [facility]: [phone] [facility]: [phone] [facility] FAX: [phone] Nan Cheney MSW - 03/30/2019 12:57 PM PDTSOCIAL WORK D/C PLAN:SNF: [facility] NEXT STEPS:Await bed availability INTERVENTION: ROBIN called and left message for Roneugene at [facility] regarding if they are willing to accept pt and to discuss transportation to and from dialysis. SW also called and left message for [place] Medicaid transportation regarding if they can transp ort pt to and from dialysis upon DC. Pt states that she goes to [facility] dialys is in [place], [place] on Wed, Wed, and Fridays from 12:00-4:00 pm. SW left message with [facility] dialysis regarding if there was any way that they may also be able to help with transportation to and from dialysis while pt is in rehab and to ensure that pt still has her chair time scheduled. [facility] is only open M on, Wednesday and Wednesday. ASSESSMENT/CHART REVIEW:73 yr old femalewith a history of ESRD on hemodialysis, hypertens ion, type 2 diabetes, hypothyroidism,chronic anemia,hyperlipidemia, hx of stroke [facility] lesion noted on MRI concerning fo r osteomyelitis. ROBIN met with pt's sister, Yina, and her cousin, Keri, who were waiting in pt's room while s he was in dialysis. ROBIN will need to follow up with pt re: d/c planning. Pt's sister and cousin related that pt mostly lives at Yina's house outside [place], [place], but does not like to be tied down because she enjoys attending [place] festivals and many events. She does at tend dialysis weekly. Pt has a vehicle and is very independent. D/C TRANSPORT:tbd BARRIERS TO D/C:none CONTACTS: Yina La: sister India Tilley: sister [place] Transportation: [place] Transportation fax: [phone] [facility]: [phone] fax: [phone] [facility] [phone] [facility]: [phone] signed by JENNIFER Xavier at 03/30 1:09 [...] history of stroke transferred from [facility] for evaluation of T11-T12 lesion noted [...] awaiting to hear from [facility], in [place] regarding possible acceptance. She is improved overall and medic ally ready for discharge. She is a chronic dialysis patient, Nephrology is following for on going dialysis needs. She will need three times weekly dialysis while at [facility] as well. SW t o help determine [...] dialysis patient - has OP clinic in [place] already ---> will need SW to help [...] SNF - awaiting to hear back from [facility], in [place], [place] regarding possible acceptance there. Medically ready [...] Single Lumen 03/24/19 2143 Left Lateral Forearm dpvg-ubv-ejwnxu daniel ter system 20 gauge;1 / in [...] 99 mg/dL Final Comment: Performed by [facility] [address] [place] [address] 03/29/2019 21:09 157 (H) 65 - 99 mg/dL Final Comment: Performed by [facility] [address] [place] [address] 03/29/2019 18:50 91 65 - 99 mg/dL Final Comment: Performed by [facility] [address] [place] [address] 12/09/2018 18:05 113 (H) 70 - 109 [...] this chart may have been created with [employer] voice recognition software. Occasi onal wrong-word or sound-alike substitutions may have occurred due to the inherent mckeon itations of voice recognition software. Please read the chart carefully and recognize, using context, where these substitutions have occurred rgJesus mcdonald MD - 03/30/2019 7:15 AM PDT . Infectious Diseases Progress Note Pt. Name/Age/: Estefani Tilley 73 y.o. 1945 Med. Record Number: [id number] Date of admission: 03/24/2019 Patient admitted with [...] Electronically signed by: Jesus Whitney, 03/30/2019 7:15 [facility] Mary Wade RN - 03/30/2019 [...] Bowel Movement: Stool Occurrence: 1(pt reported) (03/27/19 726) Active Infusions: dextrose 10% Skin: Skin Integrity: [...] intention has depression wishful of Monitoring Requirements [facility] Suicide Policy [facility] Suicide Risk/Telesitter Screening Utilizing this rating [...] POCGLU 112 (H) 12/08/2018 0650 Merry Hess BODY COMPONENT ENGINEER - 03/29/2019 4:18 PM PDTSOCIAL WORK D/C PLAN:SNF: [facility] NEXT STEPS:Await bed availability INTERVENTION: SW called and spoke with admissions person at [facility], they are still discussing pt's case. [...] anemia,hyperlipidemia, hx of stroke [facility] lesion noted on MRI concerning fo r osteomyelitis. SW met with pt's sister, Yina, and her cousin, Keri, who were waiting in pt's room while s he was in dialysis. SW will need to follow up with pt re: d/c planning. Pt's sister and cousin related that pt mostly lives at Yina's house outside [place], [place], but does not like to be tied down because she enjoys attending [place] festivals and many events. She does at tend dialysis weekly. Pt has a vehicle and is very independent. D/C TRANSPORT:tbd BARRIERS TO D/C:none CONTACTS: Yina La: sister India Tilley: sister [place] Medicaid Transportation: [facility]: [phone] fax: [phone] [facility] [phone] signed by JENNIFER Contreras at 03/29/2019 4:20 PM PDTHsu, Randy Nunez MD - 03/29/2019 12:32 PM PDT [facility] INPATIENT ROUNDING NOTE Date of Service: 03/29/2019 Rounding Physician: Rnady Corrigan MD Patient Name: Estefani Tilley : 1945 Medical Record: [id number] Hospital Summary: Estefani Tilley is a 73 [...] with a history of stroke transferred from [facility] for evaluation of T11-T12 lesion noted on [...] dialysis patient - has OP clinic in [place] already ---> will need SW to help [...] SNF - awaiting to hear back from [facility], in [place], [place] regarding possible acceptance there. Could possibly [...] Single Lumen 03/24/19 2143 Left Lateral Forearm xgqv-bbh-pxqvmv daniel ter system 20 gauge;1 1/4 in [...] - 99 mg/dL Final Comment: Performed by [place] [address] [address] [facility] [place] [address] 03/28/2019 21:06 144 (H) 65 - 99 mg/dL Final Comment: [address]formed by [address] [place] [address] 03/28/2019 11:22 119 (H) 65 - 99 mg/dL Final Comment: Performed by [place] [address] [place] [address] 12/09/2018 18:05 113 (H) 70 - 109 [...] this chart may have been created with [employer] voice recognition software. Occasi onal wrong-word or [...] Tilley 73 y.o. 1945 Med. Record Number: [id number] Date of admission: 03/24/2019 Patient admitted with [...] Electronically signed by: Jesus Whitney, 03/29/2019 7:35 [facility] zech, Carolina Restrepo RN - 03/28/2019 7:08 PM [id number] - Report called to [facility] RN. Pt's belongings . I pad and I phone w/ chargers as well as pt's purse, and shoes, and shirt and pants all sent with her to [address] [place] [address]. Pt had been sitting up eating dinner. [...] for time spent with her. Noti fied [address] [place] [address] RN of pt's recent loss. Transferred at [...] with a history of stroke transferred from [facility] for evaluation of T11-T12 lesion noted on [...] Single Lumen 03/24/19 2143 Left Lateral Forearm vefd-wbz-djutks daniel ter system 20 gauge;1 1/4 in [...] 99 mg/dL Final Comment: Performed by [facility] [address] [place] [address] 03/28/2019 07:09 75 65 - 99 mg/dL Final Comment: Performed by [facility] [address] [place] [address] 03/27/2019 20:38 109 (H) 65 - 99 mg/dL Final Comment: Performed by [facility] [address] [place] [address] 12/09/2018 18:05 113 (H) 70 - 109 [...] this chart may have been created with [employer] voice recognition software. Occasi onal wrong-word or sound-alike substitutions may have occurred due to the inherent mckeon itations of voice recognition software. Please read the chart carefully and recognize, using context, where these substitutions have occurred Cordell Mcgarry, [facility] - 03/28/2019 2:57 PM PDTSOCIAL WORK D/C PLAN: SNF: [facility] NEXT STEPS: Await bed availability INTERVENTION: On-going dc planning. Rec'd update from [facility]. They confirm they have r ec'd clinical notes and are currently reviewing. SW will follow. ASSESSMENT/CHART REVIEW:73 yr old femalewith a history of ESRD on hemodialysis, hypertens ion, type 2 diabetes, hypothyroidism,chronic anemia,hyperlipidemia, hx of stroke [facility]-T12 lesion noted on MRI concerning fo r osteomyelitis. SW met with pt's sister, Yina, and her cousin, Keri, who were waiting in pt's room while s he was in dialysis. SW will need to follow up with pt re: d/c planning. Pt's sister and co usin related that pt mostly lives at Yina's house outside [facility] [place], but does not like to be tied down because she enjoys attending [place] festivals and many events. She does atten d dialysis weekly. Pt has a vehicle and is very independent. D/C TRANSPORT: tbd BARRIERS TO D/C: none CONTACTS: Yina La: sister India Tilley: sister [facility]: [phone] fax: [phone] [facility] [phone] illum, Mario Alberto morales MD - 03/28/2019 7:34 AM PDTFormatting of this note might be different from the [facility] Infectious Diseases Progress Note Pt. Name/Age/: Estefani Tilley 73 y.o. 1945 Med. Record Number: [id number] Date of admission: 03/24/2019 Patient admitted with [...] Electronically signed by: Carlos Jansen, 03/28/2019 7:34 [facility] Katey Solis MD - 03/27/2019 8:58 PM PDT Patient: Estefani Tilley Date of : 1945 Admit Date: 03/24/2019 Date of Service: 03/27/2019 PCP: Francisca Womack PA-C Hospital Day: Hospital Day: 4 Hospital Course: 73-year-old female with history of ESRD on hemodialysis, hypertension, type 2 diabetes, hyp othyroidism, chronic anemia, hyperlipidemia with a history of stroke transferred from [facility] for evaluation of T11-T12 lesion noted on MRI concerning for osteomyeliti s. Infectious disease consulted. Status post aspiration from her thoracic spine, Gram stain negative, cultures pending. Rosemary ent started on empiric vancomycin and cefepime. Will need 6 weeks of IV antibiotics. Discussed with nephrology, recommend placement of Tillman catheter instead of PICC line for group home IV antibiotics. Nephrology following for maintenance hemodialysis. SW following for SNF. Assessment and Plan: Assessment of active problems addressed today: Osteomyelitis/discitis of T11, T12 vertebra Afebrile, improved WBC count, improved CRP Status post aspiration from her thoracic spine, Gram stain negative, cultures pending- [facility] Infectious disease help appreciated Continue vancomycin and cefepime Echocardiogram negative for any endocarditis. Patient will need IV antibiotics for 6 weeks. Continue probiotic Discussed with nephrology, recommend placement of Tillman catheter instead of PICC line for group home IV antibiotics. Pain management -trial of lidocaine [...] Single Lumen 03/24/19 2143 Left Lateral Forearm wvmp-bpy-yiqjqh daniel ter system 20 gauge;1 09/16 in [...] 99 mg/dL Final Comment: Performed by [facility] [address] [place] [address] 03/27/2019 13:58 82 65 - 99 mg/dL Final Comment: Performed by [facility] [address] [place] [address] 03/27/2019 06:39 83 65 - 99 mg/dL Final Comment: Performed by [facility] [address] [place] [address] 12/09/2018 18:05 113 (H) 70 - 109 [...] this chart may have been created with [employer] voice recognition software. Occasi onal wrong-word or sound-alike substitutions may have occurred due to the inherent mckeon itations of voice recognition software. Please read the chart carefully and recognize, using context, where these substitutions have occurred Darlin Mcgarry, [facility] - 03/27/2019 3:17 PM PDTSOCIAL WORK D/C PLAN: SNF: [facility] NEXT STEPS: Await bed availability INTERVENTION: Rec'd call from Emili at [facility]. She states the contracted f acility near pt's home is [facility]. Spoke with pt and with sister India. Referral and (-) Pasrr sent to [facility]. Copy of Pasrr placed in light chart with request to file into jos rds. SW will follow. ASSESSMENT/CHART REVIEW:73 yr old femalewith a history of ESRD on hemodialysis, hypertens ion, type 2 diabetes, hypothyroidism,chronic anemia,hyperlipidemia, hx of stroke [facility] evaluation of T11-T12 lesion noted on MRI [...] be tied down because she enjoys attending [place] festivals and many events. She does atten d dialysis weekly. Pt has a vehicle and is very independent. D/C TRANSPORT: tbd BARRIERS TO D/C: none CONTACTS: Yina La: sister India Tilley: sister [facility]: [phone] fax: [phone] [place] [phone] Gregg Mcgarry FIELD AUDITOR - 03/27/2019 2:17 PM PDTFormatting of this note might be different from jerald more. SOCIAL WORK D/C PLAN: SNF NEXT STEPS: SW to follow up with pt regarding SNF preference INTERVENTION: On-going dc planning, chart reviewed and met with pt. Discussed need of intermission coordinator IV abx, Discussed options. Provided list of [...] be tied down because she enjoys attending [place] festivals and many events. She does atten d dialysis weekly. Pt has a vehicle and is very independent. ASSESSMENT/CHART REVIEW:73 yr old femalewith a history of ESRD on hemodialysis, hypertens ion, type 2 diabetes, hypothyroidism,chronic anemia,hyperlipidemia, hx of stroke [facility] noted on MRI concerning fo r osteomyelitis. D/C TRANSPORT: tbd BARRIERS TO D/C: none CONTACTS: Yina La Sister [phone] India Tilley Sister [phone] Irish Cadet, Chemical Plant Operator - 03/27/2019 1:33 PM PDTFormatting of this [...] mg/dL (H)). Lab Results Component Value Date/Time VANCDELTAVILLENDOM 17.7 03/27/2019 05:12 I/O last 3 completed shifts: In: 360 [P.O.:360] Out: 1 [Urine:1] I/O this shift: In: - Out: 2000 Micro/Cultures: BCx - NGTD, BiopsyCx - NGTD Per P&T-approved Vancomycin Protocol Electronically signed by: Aimee Carroll, Chemical Plant Operator 03/27/2019 13:33Electronically si gned by Ray Joel, PharmD at 03/27/2019 2:04 PM PDT Associated attestation - Ray Joel PharmD - 03/27/2019 2:04 PM PDTI reviewed and agr ee with the assessment and plan. Ray Joel PharmD 03/27/2019 14:04 Randy Corrigan MD - 03/27/2019 10:52 AM PDT [facility] INPATIENT ROUNDING NOTE Date of Service: 03/27/2019 Rounding Physician: Randy Corrigan MD Patient Name: Estefani Tilley : 1945 Medical Record: [id number] Hospital Summary: Estefani Tilley is a 73 [...] Tilley 73 y.o. 1945 Med. Record Number: [id number] Date of admission: 03/24/2019 Patient admitted with [...] Electronically signed by: Carlos Jansen, 03/27/2019 7:10 [facility] Katey Solis MD - 03/26/2019 5:40 PM PDT Patient: Estefani Tilley Date of : 1945 Admit Date: 03/24/2019 Date of Service: 03/26/2019 PCP: Francisca Womack PA-C Hospital Day: Hospital Day: 3 Hospital Course: 73-year-old female with history of ESRD on hemodialysis, hypertension, type 2 diabetes, hyp othyroidism, chronic anemia, hyperlipidemia with a history of stroke transferred from [facility] for evaluation of T11-T12 lesion noted on [...] Single Lumen 03/24/19 2143 Left Lateral Forearm gpth-bug-ckvtck daniel ter system 20 gauge;1 09/16 in [...] 99 mg/dL Final Comment: Performed by [facility] [address] [place] [address] 03/26/2019 06:49 116 (H) 65 - 99 mg/dL Final Comment: Performed by [facility] [address] [place] [address] 03/25/2019 20:37 110 (H) 65 - 99 mg/dL Final Comment: Performed by [facility] [address], [place] [address] 12/09/2018 18:05 113 (H) 70 - 109 [...] this chart may have been created with [employer] voice recognition software. Occasi onal wrong-word or sound-alike substitutions may have occurred due to the inherent mckeon itations of voice recognition software. Please read the chart carefully and recognize, using context, where these substitutions have occurred Jose Gamez, Pharmacy R esident - 03/26/2019 10:52 AM PDTFormatting of this note might be different from [facility] Progress Note VANCOMYCIN PER [...] Vancomycin Protocol Electronically signed by: Jose Menard, Chemical Plant Operator 03/26/2019 10:52 sRandy carter MD - 03/26/2019 1 0:38 AM PDT [facility] INPATIENT ROUNDING NOTE Date of Service: 03/26/2019 Rounding Physician: Randy Corrigan MD Patient Name: Estefani Tilley : 1945 Medical Record: [id number] Hospital Summary: Estefani Tilley is a 73 [...] Tilley 73 y.o. 1945 Med. Record Number: [id number] Date of admission: 03/24/2019 Patient admitted with [...] Electronically signed by: Carlos Jansen, 03/26/2019 8:03 [facility] Katey Solis MD - 03/25/2019 3:50 PM PDT Patient: Estefani Tilley Date of : 1945 Admit Date: 03/24/2019 Date of Service: 03/25/2019 PCP: Francisca Womack PA-C Hospital Day: Hospital Day: 2 Hospital Course: 73-year-old female with history of ESRD on hemodialysis, hypertension, type 2 diabetes, hyp othyroidism, chronic anemia, hyperlipidemia with a history of stroke transferred from [facility] for evaluation of T11-T12 lesion noted on [...] Single Lumen 03/24/19 2143 Left Lateral Forearm eygx-yzj-pzyvhu daniel ter system 20 gauge;1 1/4 in [...] 99 mg/dL Final Comment: Performed by [facility] [address] [place] [address] 03/25/2019 06:52 107 (H) 65 - 99 mg/dL Final Comment: Performed by [facility] [address] [place] [address] 03/24/2019 20:11 112 (H) 65 - 99 mg/dL Final Comment: Performed by [facility] [address] [place] [address] 12/09/2018 18:05 113 (H) 70 - 109 [...] this chart may have been created with [employer] voice recognition software. Occasi onal wrong-word or sound-alike substitutions may have occurred due to the inherent mckeon itations of voice recognition software. Please read the chart carefully and recognize, using context, where these substitutions have occurred su, Randy Nunez MD - 0 03/25/2019 1:47 PM PDT [facility] INPATIENT ROUNDING NOTE Date of Service: 03/25/2019 Rounding Physician: Randy Corrigan MD Patient Name: Estefani Tilley : 1945 Medical Record: [id number] Hospital Summary: Estefani Tilley is a 73 [...] by: Trace Corrigan MD, 03/25/2019, 13:47 ettlerNan, BODY COMPONENT ENGINEER - 03/25/2019 10:49 AM PDT SOCIAL WORK [...] pt mostly lives at Yina's house outside [facility] [place], [place], but does not like to be tied down because she enjoys attending [place] festivals and many events. She does atten d dialysis weekly. Pt has a vehicle and is very independent. ASSESSMENT/CHART REVIEW:73 yr old femalewith a history of ESRD on hemodialysis, hypertens ion, type 2 diabetes, hypothyroidism,chronic anemia,hyperlipidemia, hx of stroke [facility] noted on MRI concerning fo r osteomyelitis. D/C TRANSPORT: tbd BARRIERS TO D/C: none CONTACTS: Yina La Sister [phone] India Tilley Sister [phone] Carlos Gonzales M D - 03/25/2019 8:34 AM PDT Infectious Diseases Progress Note Pt. Name/Age/: Estefani Tilley 73 y.o. 1945 Med. Record Number: [id number] Date of admission: 03/24/2019 Patient admitted with [...] Electronically signed by: Carlos Jansen, 03/25/2019 8:34 [facility] Jose Gamez, Chemical Plant Operator - 03/24/2019 10:46 PM PDTFormatting of this [...] Vancomycin Protocol Electronically signed by: Jose Menard, Chemical Plant Operator 03/24/2019 22:46 ladys [place] MSW - 9 [...] pt mostly lives at Yina's house outside [place], [place], but do es not like to be tied down because she enjoys attending [place] festivals and many events. She does attend dialysis weekly. Pt has a vehicle and is very independent. ASSESSMENT/CHART REVIEW:73 yr old female with a history of ESRD on hemodialysis, hypertensi on, type 2 diabetes, hypothyroidism, chronic anemia, hyperlipidemia, hx of stroke transferre d from [facility] for evaluation of T11-T12 lesion noted on MRI concerning for ost eomyelitis. D/C TRANSPORT: tbd BARRIERS TO D/C: none CONTACTS: Yina La Sister [phone] India Tilley Sister [phone] Katey Solis MD - 03/24/2019 3:53 PM PDTPatient seen and examined. Chart reviewed. Briefly, 73-year-old female with history of ESRD on hemodialysis, hypertension, type 2 diab etes, hypothyroidism, chronic anemia, hyperlipidemia with a history of stroke transferred fr om [facility] for evaluation of T11-T12 lesion noted [...] not have any p raza, consider antidepressants. garden worker consulted for concerns for housing concerns [...] 1250 mg IV once given 03/23 @ 6174 at [facility]. 2. [employer] Trough: 15-20 mcg/ml [...] Procedure Component Value Units Date/Time Culture, Blood [[id number]] Collected: 03/23/192332 Order Status: Sent Lab Status: In process Updated: 03/23/192348 Specimen: Blood Culture, Blood [[id number]] Collected: 03/23/192254 Order Status: Sent Lab Status: [...] [facility] | | | POC | [facility] [address], | | SACRED | | | | [place] [address] | | HEART | | | |Performed by [facility] [address], [place] [address] | | MEDICAL | | | | [...] + | BETH LIZ | [address] | [place] [address] | | | [facility] | | | | | YANY DENNISON [...] PROVIDENCE | | | POC | [facility] [address], | | SACRED | | | | [place], [place] | | HEART | | | |Performed by [facility] [address], [place] | | MEDICAL | | | [...] SACRED | [address] | [place], [place] | | | [facility] [...] | LABORATORY | | | | [facility] [address] [place], | | CERNER | | | | [place] [address] | | | | + + + + + + + + | Specimen | + + | Blood specimen | | (specimen) | + + + + + + + | Performing | Address | City/State/Zipcode | Phone Number | | Organization | | | | + + + + + | BETH LIZ | [address] | [place] [address] | | | [facility] | | | | | YANY DENNISON [...] | | | Immature | by [facility] [address], | K/uL | SACRED | | | Granulocyte | [place] [address] | | HEART | | | s |Performed by [facility] [address], [place] [address] | | MEDICA L | | | [...] | PROVIDEJOSE AE AGUSTO | [address] | [place] [address] | | | [facility] | | | | | LABORATORY CERNER [...] | | | | | | [facility] [address], | | | | | | [place] [address] | | | | + + + + + + + + | Specimen | + + | Blood specimen | | (specimen) | + + + + + + + | Performing | Address | City/State/Zipcode | Phone Number | | Organization | | | | + + + + + | PROVIDEJOSE AE SACRED | [address] | [place] [address] | | | HEART [facility] | | | | | LABORATORY [...] | | POC | Performed by [facility] [address] | | SACRED | | | | [address] [place], [place] | | HEART | | | | [address] | | MEDICAL | | | | [...] + | BETH LIZ | [address] | [place] [address] | | | [facility] | | | | | LABORATORY CERNER [...] | | POC | Performed by [facility] [address] | | SACRED | | | | [address] [place], [place] | | HEART | | | | [address] | | MEDICAL | | | | [...] | [address] | [place] [address] | | | HE[facility]ICAL [facility]ENTER | [...] | | POC | Performed by [facility] [address] | | SACREVANS | | | | [address], [place] | | HEART | | | | [address] | | MEDICAL | | | | [...] + + | BETH LIZ | [address] | [place] [address] | | | [facility] | | | | | LABORATORY JESI [...] | | POC | Performed by [facility] [address] | | SACRED | | | | [address], [place] | | HEART | | | | [address] | | MEDICAL | | | | [...] SACRED | [address] | [place], [place] | | | HEART [facility] | | | | | LABORATORY CERNER [...] NCE | | | | by [facility] [address], | | SACRED | | | | [place] | | HEART | | | |Performed by [facility] [address] [address], [place], [place] | | MEDICAL | | | [...] + + | BETH LIZ | [address] | [place] [address] | | | [facility] | | | | | YANY DENNISON [...] CE | | | | by [facility] [address], | | SACRED | | | | [place] [address] | | HEART | | | |Performed by [facility] [address], [place] [address] | | MEDICAL | | | | [...] + + | JIMRENUKA LIZ | [address] | [place] [address] | | | [facility] | | | | | LABORATORY JESI [...] | LABORATORY | | | | [facility] [address], | | CERNER | | | | [place] [address] | | | | + + + + + + + + | Specimen | + + | Blood specimen | | (specimen) | + + + + + + + | Performing | Address | City/State/Zipcode | Phone Number | | Organization | | | | + + + + + | BETH LIZ | [address] | [place] [address] | | | [facility] | | | | | YANY DENNISON [...] | | | Counted | by [facility] [address] [facility] [address], | | SACRED | | | | [place] [address] | | HEART | | | |Performed by [facility] [address] [place], [place] [address] | | MEDICA L | | | [...] + + | BETH LIZ | [address] | [place] [address] | | | [facility] | | | | | LABORATORY JESI [...] | | POC | Performed by [facility] [address] | | SACRED | | | | [address] [place] | | HEART | | | | [address] | | MEDICAL | | | | [...] SACRED | [address] | [place] | | | [facility] | | | | | LABORATORY CERNER [...] PROVIDEJOSE AE | | | POC | [facility] [address], | | SACRED | | | | [place] | | HEART | | | |Performed by [facility] [address], [place] [address] | | MEDICAL | | | | [...] + | BETH LIZ | [address] | [place] [address] | | | [facility] | [...] | | POC | Performed by [facility] [address] | | SACRED | | | | [address] [place], [place] | | HEART | | | | [address] | | MEDICAL | | | | [...] + | BETH LIZ | [address] | [place] [address] | | | [facility] | | | | | LABORATORY JESI [...] PROVIDEJOSE AE | | | POC | [facility] [address], | | SACRED | | | | [place] [address] | | HEART | | | |Performed by [facility] [address], [place] | | MEDICAL | | | [...] | [address] | [place] | | | [facility] | | | | | LABORATORY CERNER [...] | | | | | | [facility] [address], | | | | | | [place] [address] | | | | + + + + + + + + | Specimen | + + | Blood specimen | | (specimen) | + + + + + + + | Performing | Address | City/State/Zipcode | Phone Number | | Organization | | | | + + + + + | BETH LIZ | [address] | [place] [address] | | | [facility] | | | | | YANY DENNISON [...] | | | Counted | by [facility] [address], | | SACRED | | | | [place] [address] | | HEART | | | |Performed by [facility] [address], [place] [address] | | MEDICA L | | | [...] + + | BETH LIZ | [address] | [place] [address] | | | [facility] | | | | | LABORATORY JESI [...] PROVIDEN CE | | | | by [facility] [address], | | SACRED | | | | [place] [address] | | HEART | | | |Performed by [facility] [address], [place] [address] | | MEDICAL | | | | [...] SACRED | [address] | [place] [address] | | | [facility] | | | | | LABORATORY CERNER [...] | LABORATORY | | | | [facility] [address] [place], | | JESI | | | | [place] [address] | | | | + + + + + + + + | Specimen | + + | Blood specimen | | (specimen) | + + + + + + + | Performing | Address | City/State/Zipcode | Phone Number | | Organization | | | | + + + + + | JIMJOSE ADora LIZ | [address] | [place] [address] | | | [facility] | | | | | LABORATORY JESI [...] | | POC | Performed by [facility] [address] | | SACRED | | | | [address] [place] | | HEART | | | | [address] | | MEDICAL | | | | [...] + + | BETH LIZ | [address] | [place] [address] | | | [facility] | | | | | LABORATORY CERNER [...] | | POC | Performed by [facility] [address] | | SACRED | | | | [address] [place], [place] | | HEART | | | | [address] | | MEDICAL | | | | [...] | JIMJOSE ADora AGUSTO | [address] | [place] [address] | | | [facility] | | | | | LABORATORY CERNER [...] PROVIDENCE | | | POC | [facility] [address], | | SACRED | | | | [place] [address] | | HEART | | | |Performed by [facility] [address], [place] [address] | | MEDICAL | | | | [...] [address] | [place] [address] | | | [facility] | | | | | [...] | 14 (L)Comment: eGFR<60 | >=90 | PROVIDEDCE | | | GFR | consistent with impaired | mL/min/1.73m2 | SACRED | | | | kidney function.For | | HEART | | | | Americans, | | MEDICAL | | | | multiply the calculated | | CENTER | | | | GFR by 1.210Performed by | | LABORATORY | | | | [facility] [address], | | CERNER | | | | [place] [address] | | | | + + + + + + + + | Specimen | + + | Blood specimen | | (specimen) | + + + + + + + | Performing | Address | City/State/Zipcode | Phone Number | | Organization | | | | + + + + + | BETH LIZ | [address] | [place] [address] | | | [facility] | | | | | LABORATORY CERNER [...] NCE | | | | by [facility] [address], | | SACRED | | | | [place] [address] | | HEART | | | |Performed by [facility] [address], [place] [address] | | MEDICAL | | | | [...] + + | BETH LIZ | [address] | [place] [address] | | | [facility] | | | | | LABORATORY BARR[place]NER [...] | | POC | Performed by [facility] [address] | | SACRED | | | | [address], [place] | | HEART | | | | [address] | | MEDICAL | | | | [...] [address] | [place] [address] | | | [facility] | [...] | | POC | Performed by [facility] [address] | | SACRED | | | | [address] [place] | | HEART | | | | [address] | | MEDICAL | | | | [...] + | BETH LIZ | [address] | [place] [address] | | | [facility] | | | | | LABORATORY CERNER [...] PROVIDENCE | | | POC | [facility] [address], | | SACRED | | | | [place] [address] | | HEART | | | |Performed by [facility] [address], [place] [address] | | MEDICAL | | | [...] Ave. | [place] | | | [facility] | | | | | LABORATORY BARRINGTONNER [...] RIMAE | | | POC | [facility] [address], | | SACRED | | | | [place] | | HEART | | | |Performed by [facility] [address], [place] [address] | | MEDICAL | | | | [...] + + | BETH LIZ | [address] | [place] [address] | | | [facility] | | | | | [...] | | | | | | [facility] [address], | | | | | | [place] [address] | | | | + + + + + + + + | Specimen | + + | Blood specimen | | (specimen) | + + + + + + + | Performing | Address | City/State/Zipcode | Phone Number | | Organization | | | | + + + + + | JIMRENUKA LIZ | [address] | [place] [address] | | | [facility] | | | | | LABORATORY JESI [...] | | POC | Performed by [facility] [address] | | SACRED | | | | [address] [place] | | HEART | | | | [address] | | MEDICAL | | | | [...] [address] | [place] [address] | | | [facility] | | | | | [...] | | POC | Performed by [facility] [address] | | SACRED | | | | [address], [place] | | HEART | | | | [address] | | MEDICAL | | | | [...] + | JIMJOSE ADora AGUSTO | [address] | [place] [address] | | | [facility] | | | | | LABORATORY JESI [...] | | POC | Performed by [facility] [address] | | SACRED | | | | [address] [place] | | HEART | | | | [address] | | MEDICAL | | | | [...] SACRED | [address] | [place] [address] | | | [facility] | | | | | LABORATORY CERNER [...] BETH | | | | Performed by [facility] [address] | | AGUSTO | | | | [address], [place] | | HEART | | | | [address] | | MEDICAL | | | | [...] | JIMJOSE ADora LIZ | [address] | [place] [address] | | | [facility] | | | | | LABORATORY CERNER [...] | | POC | Performed by [facility] [address] | | SACRED | | | | [address] [place], [place] | | HEART | | | | [address] | | MEDICAL | | | | [...] + + | [facility] SACRED | [address] | [place] [address] | | | [facility] | | | | | LABORATORY CERNER [...] | | | | | | [facility] [address], | | | | | | [place] [address] | | | | + + + + + + + + | Specimen | + + | Blood specimen | | (specimen) | + + + + + + + | Performing | Address | City/State/Zipcode | Phone Number | | Organization | | | | + + + + + | BETH LIZ | [address] | [place] [address] | | | [facility] | | | | | LABORATORY JESI [...] | LABORATORY | | | | [facility] [address] [place], | | JESI | | | | [place] [address] | | | | + + + + + + + + | Specimen | + + | Blood specimen | | (specimen) | + + + + + + + | Performing | Address | City/State/Zipcode | Phone Number | | Organization | | | | + + + + + | BETH LIZ | [address] | [place] [address] | | | HEART [facility] | | | | | LABORATORY [...] NCE | | | | by [facility] [address], | | SACRED | | | | [place] [address] | | HEART | | | |Performed by [facility] [address], [place] [address] | | MEDICAL | | | | [...] LIZ | [address] | [place] [address] | | | HEART [facility] | | | | | LABORATORY JESI [...] | | | B-12 | by [facility] [address], | | SACRED | | | | [place] [address] | | HEART | | | |Performed by [facility] [address], [place] [address] | | MEDICAL | | | | [...] + + | [facility] | [address] | [place] [address] | | | [facility] | | | | | LABORATORY CERNER [...] | | | | | | [facility] [address], | | | | | | [place] [address] | | | | + + + + + + + + | Specimen | + + | Blood specimen | | (specimen) | + + + + + + + | Performing | Address | City/State/Zipcode | Phone Number | | Organization | | | | + + + + + | BETH LIZ | [address] | [place] [address] | | | [facility] | | | | | LABORATORY CERNER [...] | | POC | Performed by [facility] [address] | | SACRED | | | | [address] [place] | | HEART | | | | [address] | | MEDICAL | | | | [...] [address] | [place] [address] | | | [facility] | | | | | LABORATORY CERNER [...] | | POC | Performed by [facility] [address] | | SACRED | [...] | | POC | Performed by [facility] [address] | | SACRED | | | | [place] | | HEART | | | | [address] | | MEDICAL | | | | [...] + | BETH LIZ | [address] | [place] [address] | | | [facility] | | | | | LABORATORY CERNER [...] NCE | | | | by [facility] [address], | | SACRED | | | | [place] [address] | | HEART | | | |Performed by [facility] [address], [place] [address] | | MEDICAL | | | | [...] + + | BETH LIZ | [address] | [place] [address] | | | [facility] | | | | | LABORATORY CERNER [...] JIMN CE | | | | by [facility] [address], | | SACRED | | | | [place] [address] | | HEART | | | |Performed by [facility] [address], [place] [address] | | MEDICAL | | | | [...] + + | RIMAE AGUSTO | [address] | [place] [address] | | | [facility] | | | | | LABORATORY CERNER [...] | LABORATORY | | | | [facility] [address], | | JESI | | | | Ja [place] [address] | | | | + + + + + + + + | Specimen | + + | Blood specimen | | (specimen) | + + + + + + + | Performing | Address | City/State/Zipcode | Phone Number | | Organization | | | | + + + + + | JIMRENUKA LIZ | [address] | [place] [address] | | | [facility] | | | | | LABORATORY CERNER [...] | | POC | Performed by [facility] [address] | | SACRED | | | | [address] [place] | | HEART | | | | [id number] | | MEDICAL | | | | [...] + | JIMJOSE ADora AGUSTO | [address] | [place] [address] | | | [facility] | | | | | LABORATORY JESI [...] | | POC | Performed by [facility] [address] | | SACRED | | | | [address] [place] | | HEART | | | | [id number] | | MEDICAL | | | | [...] SACRED | [address] | [place] [address] | | | [facility] | | | | | LABORATORY CERNER [...] | SACRED | | | Total | [address] | | HEART | | | | [address] [place], [place] | | MEDICAL | | | | [phone] Daniel | | CENTER | | | | Lauro HOLDEN Ph:[phone] | | LABORATORY | | | | [...] + + | BETH LIZ | [address] | [place] [address] | | | [facility] | | | | | YANY DENNISON [...] SACRED | | | | by [facility] [address], | | HEART | | | | [place] [address] | | MEDICAL | | | | [...] SACRED | [address] | [place] [address] | | | [facility] | | | | | LABORATORY CERNER [...] SACRED | | | | by [facility] [address], | | HEART | | | | [place] [address] | | MEDICAL | | | | [...] + | BETH LIZ | [address] | [place] [address] | | | [facility] | | | | | LABORATORY CERNER [...] MEDICAL | | | | by [facility] [address], | | CENTER | | | | [place] [address] | | LABORATORY | | | |Performed by [facility] [address], [place] [address] | | CERNER | | | | [...] + | [facility] | [address] | [place] [address] | | | [facility] | | | | | LABORATORY CERNER [...] | | POC | Performed by [facility] [address] | | SACREVANS | | | | [place] | | HEART | | | | [address] | | MEDICAL | | | | [...] + + | BETH LIZ | [address] | [place] [address] | | | [facility] | | | | | YANY DENNISON [...] | | POC | Performed by [facility] [address] | | SACRED | | | | [address] [place] | | HEART | | | | [address] | | MEDICAL | | | | [...] SACRED | [address] | [place] [address] | | | [facility] | [...] | | | | 3.5Performed by [facility] [address] | | LABORATORY | | | | [address] | | JESI | | | | [address] | | | | + + + + + + + + | Specimen | + + | Blood specimen | | (specimen) | + + + + + + + | Performing | Address | City/State/Zipcode | Phone Number | | Organization | | | | + + + + + | BETH LIZ | [address] | [place] [address] | | | [facility] | | | | | [...] | HEART | | | s | [address] | | MEDICAL | | | | [...] + | BETH LIZ | [address] [place] [address]. | [place] [address] | | | [facility] | | | | | LABORATORY JESI [...] | LABORATORY | | | | [facility] [address] | | JESI | | | | [place] [address] | | | | + + + + + + + + | Specimen | + + | Blood specimen | | (specimen) | + + + + + + + | Performing | Address | City/State/Zipcode | Phone Number | | Organization | | | | + + + + + | RIMAE [facility] | [address] | [place] [address] | | | [facility] | | | | | LABORATORY JESI [...] | | | | First dose on [facility] 03/30/19 at 1130 | | AM PDT [...] scheduled: AC, NPO, Daytime | | | 2036-9906 Use NIGHT DOSE for | | | doses scheduled: HS, 3AM, | | | Nighttime 3032-0263 If the BG is | | | [...]
--- OUTSIDE RECORDS SUMMARY | ~2019-07-27 | XMS | Encounter Summary ---
Demographics + + + | Address | [address] | | | [place] [address] | + + + | Home Phone [...] | [facility] | | | and [place] | + + + | Organization | [facility] | | | and [place] | + + + | Address | Unknown | + + + | Phone | Unavailable | + + + Support + + + + + | Name | Relationship | Address | Phone | + + + + + | India Tilley | ECON | [address] | | | | | [place], [place] | | | | | [address] | | + + + + + | Yina La | ECON | Unknown | | + + + + + | Yina Peterson | ECON | Unknown | | + + + + + | Leatha Casillas | ECON | Unknown | | + + + + + Care Team Providers + +------+ + | Care Typing Element Machine Operator Name | Role | Phone | + +------+ + PCP | Unavailable | + +------+ + Encounter Details +--------+ + + + + | Date | Type | Department | Care Team | Description | +--------+ + + + + | 07/07/ | Abstract | [facility] | Gopi Muñoz | | | 2017 | | NEPHROLOGY [address] | M, DO [address] | | | | | [address] [facility] [address] | [place], [facility] [address] | | | | | [place], [place] | [place] | | | | | [address] | [address] | | | | | [phone] | | | +--------+ + + + [...]
--- OUTSIDE RECORDS SUMMARY | ~2019-07-27 | XMS | Encounter Summary ---
Demographics + + + | Address | [address] | | | [place] [address] | + + + | Home Phone | | + + + | Preferred Language | Unknown | + + + | Marital Status | Single | + + + | Religion Affiliation | Unknown | + + + | Race | Unknown | + + + | Ethnic Group | Unknown | + + + Author + + + | Author | [facility] | | | and [place] | + + + | Organization | [facility] | | | and [place] | + + + | Address | Unknown | + + + | Phone | Unavailable | + + + Support + + + + + | Name | Relationship | Address | Phone | + + + + + | India Tilley | ECON | [address] | | | | | [place], [place] | | | | | [address] | | + + + + + | Yina La | ECON | Unknown | | + + + + + | Yina Peterson | ECON | Unknown | | + + + + + | Leatha Casillas | ECON | Unknown | | + + + + + Care Team Providers + +------+ + | Care Endocrinologist Name | Role | Phone | + [...] | [address] | [place] | initial encounter | | | | [place] | [address] | ([facility]) (Primary Dx); | | | | [address] | | Right hip pain; H/O | | | | [phone] | | major orthopedic | | | [...]
--- OUTSIDE RECORDS SUMMARY | ~2019-07-27 | XMS | Encounter Summary ---
Demographics + + + | Address | [address] | | | [place] [address] | + + + | Home Phone [...] | Author | [facility] | | | and [place] | + + + | Organization | [facility] | | | and [place] | + + + | Address | Unknown | + + + | Phone | Unavailable | + + + Support + + + + + | Name | Relationship | Address | Phone | + + + + + | India Tilley | ECON | [address] | | | | | [place], [place] | | | | | [address] | | + + + + + | Yina La | ECON | Unknown | | + + + + + | Yina Peterson | ECON | Unknown | | + + + + + | Leatha Casillas | ECON | Unknown | | + + + + + Care Team Providers + +------+ + | Care Tuckpointer Name | Role | Phone | + +------+ + PCP | Unavailable | + +------+ + Encounter Details +--------+ + + + + | Date | Type | Department | Care Team | Description | +--------+ + + + + | 05/12/ | Hospital | [facility] | | | | 2006 - | Encounter | MED CTR CANCER | | | | | | CENTER [facility] [address] | | | | 05/13/ | | [place] | | | | 2006 | | [address] | | | | | | [phone] | | | +--------+ + + + [...]
--- OUTSIDE RECORDS SUMMARY | ~2019-07-27 | XMS | Encounter Summary ---
Demographics + + + | Address | [address] | | | [place] [address] | + + + | Home Phone [...] | Author | [facility] | | | and [place] | + + + | Organization | [facility] | | | and [place] | + + + | Address | Unknown | + + + | Phone | Unavailable | + + + Support + + + + + | Name | Relationship | Address | Phone | + + + + + | India Tilley | ECON | [address] | | | | | [place], [place] | | | | | [address] | | + + + + + | Yina La | ECON | Unknown | | + + + + + | Yina Peterson | ECON | Unknown | | + + + + + | Leatha Casillas | ECON | Unknown | | + + + + + Care Team Providers + +------+ + | Care Agricultural Adviser Name | Role | Phone | + +------+ + PCP | Unavailable | + +------+ + Reason for Visit +---------+ + | Reason | Comments | +---------+ + | Post Op | Post Op Percutaneous Cannulated Screw Fixation Right Femoral Neck | | | Fracture DOS:12/04/2018 | +---------+ + Encounter Details +--------+---------+ + + + | Date | Type | Department | Care Team | Description | +--------+---------+ + + + | 01/05/ | Office | [facility] | Scott Koroma, | Closed fracture of | | 2019 | Visit | ORTHOPEDIC SURGERY | MD [address] [facility] | neck of right femur, | | | | [address] | [place] | initial encounter | | | | [place], [place] | [address] | (HCC) (Primary Dx); | | | | [address] | | Right hip pain | | | | [phone] | | | +--------+---------+ + + + [...] Weight | 70.8 kg (156 lb) | 01/05/2019 1:55 PM | | | | | PDT | | + + + + + | Height | 172.7 cm (5' 8") | 01/05/2019 1:55 PM | | | | | PDT | | + + + + + | Body Mass Index | 23.72 | 01/05/2019 1:55 PM | | | | | PDT [...] encounter Progress Notes Scott Koroma MD - 01/05/2019 2:00 PM PDTPatient returns for follow-up cannulated screw fixation right hip fracture She is doing fine she has minimal pain complaints Her incision site is healed Is a pain-free arc of motion X-rays show no change in position of the screws and increased density consistent with heali ng of the fracture Transition activities discussed They will call if they have concerns we will see her as needed documented in this encounter Plan of Treatment [...] thigh | + + documented in this encounter
--- OUTSIDE RECORDS SUMMARY | ~2019-07-27 | XMS | Encounter Summary ---
Demographics + + + | Address | [address] | | | [place] [address] | + + + | Home Phone [...] + | Author | [facility] | | | and [place] | + + + | Organization | [facility] | | | and [place] | + + + | Address | Unknown | + + + | Phone | Unavailable | + + + Support + + + + + | Name | Relationship | Address | Phone | + + + + + | India Tilley | ECON | [address] | | | | | [place], [place] | | | | | [address] | | + + + + + | Yina La | ECON | Unknown | | + + + + + | Yina Peterson | ECON | Unknown | | + + + + + | Leatha Casillas | ECON | Unknown | | + + + + + Care Team Providers + +------+ + | Care Loom Setter Name | Role | Phone | [...] | | | | | ([facility]) | | | +--------+--------+ + + + + Encounter Details +--------+ + + + + | Date | Type | Department | Care Team | Description | +--------+ + + + + | 12/04/ | Anesthesia | [facility] | Petros Garrido | | | 2019 | Event | MED CTR OR INTRA OP | MD Zuleima [address] | | | | | [address] | [address] [place] | | | | | [place], [place] | [place] [address] | | | | | [address] | [phone] | | | | | [phone] | | | +--------+ + + + [...] +----+---+ + + | | 1 | Koppel | | | | 6 | 43-degrees | | | | 3 | | | | | 1 | | | +----+---+ + + | | 1 | First | | | | 6 | Inc/Proc St | | | | 3 | | | | | 4 | | | +----+---+ + + | | 1 | Koppel off | | | | 6 | [...] 12/09/18 182 by | | eral | [id number] catheter system; | Priti Burleson RN | [...] | | Suction: low suction Placed by: PTEROS GARRIDO | | | Electronically Signed by:Petros [...] nerve being blocked with needle tip visualized frolyanu karen Local anesthetic was | |injected in [...] | | | | | Breath, Starting [place] 12/04/18 at | | PM PDT | | | | | 1701, Anesthesia Intra-op | | | | | | + +--------+ +---------+------+------+ +---+---+ | | | +---+---+ + +-------+ +-----+---+---+ | ceFAZolin (ANCEF, KEFZOL) | Given | 12/05/19 | 1 g | | | | injection Intravenous, PRN, | | 19 4:20 | | | | | Starting [place] 12/04/18 at 1620, | | PM PDT [...] 4:04 | | | | | Starting [place] 12/04/18 at 1604, | | PM PDT [...] | | | | | PRN, Starting [place] 12/04/18 at | | PM PDT | [...] 4:14 | | | | | Starting [place] 12/04/18 at 1614, | | PM PDT | | | | | Anesthesia Intra-op | | | | | | + +-------+ +--------+---+---+ +---+---+ | | | +---+---+ documented in this encounter"
--- OUTSIDE RECORDS SUMMARY | ~2019-07-27 | XMS | Encounter Summary ---
Demographics + + + | Address | [address] | | | [place] [address] | + + + | Home Phone | | + + + | Preferred Language | Unknown | + + + | Marital Status | Single | + + + | Gnosticist Affiliation | Unknown | + + + | Race | Unknown | + + + | Ethnic Group | Unknown | + + + Author + + + | Author | [facility] | | | and [place] | + + + | Organization | [facility] | | | and [place] | + + + | Address | Unknown | + + + | Phone | Unavailable | + + + Support + + + + + | Name | Relationship | Address | Phone | + + + + + | India Campos | ECON | [address] | | | | | [place], [place] | | | | | [address] | | + + + + + | Yina La | ECON | Unknown | | + + + + + | Yina Peterson | ECON | Unknown | | + + + + + | Leatha Casillas | ECON | Unknown | | + + + + + Care Team Providers + +------+ + | Care Watch Repair Person Name | Role | Phone | + [...] | | | | | | | CHF | | | +--------+--------+ + + + + Encounter Details +--------+---------+ + + + | Date | Type | Department | Care Team | Description | +--------+---------+ + + + | 09/10/ | Surgery | [facility] | AndriyAkash | DI: MRI | | 2019 | | [facility] | MD Juan F [address] | | | | [address] | [address] | | | | | [place], [place] | [place] [address] | | | | | [address] | [phone] | | | | | [phone] | | | +--------+---------+ + + + [...] + + + | Blood Pressure | 180/76 | 05/25/2019 7:48 AM | | | | | PDT | | + + + + + | Pulse | 64 | 05/25/2019 7:48 AM | | | | | PDT | | + + + + + | Temperature | 36.8 C (98.3 F) | 05/25/2019 7:48 AM | | | | | PDT | | + + + + + | Respiratory Rate | 20 | 05/25/2019 7:48 AM | | | | | PDT | | + + + + + | Oxygen Saturation | 90% | 05/25/2019 7:48 AM | | | | | PDT | | + + + + + | Inhaled Oxygen | - | - | | | Concentration | | | | + + + + + | Weight | 67.5 kg (148 lb 13 | 05/22/2019 3:06 AM | | | | oz) | PDT | | + + + + + | Height | 172.7 cm (5' 8") | 05/20/2019 8:28 PM | | | | | PDT | | + + + + + | Body Mass Index | 22.63 | 05/20/2019 8:28 PM | | | | | PDT [...] documented as of this encounter Discharge Summaries Nora Christina MD - 05/25/2019 11:24 AM PDT [place] HOSPITALIST DISCHARGE SUMMARY Pt. Name/Age/: Ara Tony Dugan y.oMarianela 1945 Date of Admission: 05/20/2019 Date of Discharge: 05/25/2019 Admitting Physician: Mirza Retana MD Primary Care Provider: Floyd Zuniga MD Discharging Physician: Nora Christina MD DISCHARGE DIAGNOSES: Active Hospital Problems Diagnosis Hypoxia Osteomyelitis of thoracic region ESRD (end stage renal disease) on dialysis Essential hypertension DM (diabetes mellitus), type 2 Resolved Hospital Problems No resolved problems to display. HOSPITAL COURSE: Please refer to the H&P for full details and the most recent rounding rounding (progress) n ote. 74 yo F with history of ESRD (MWF HD), hypertension, diabetes, recent T11-12 osteomyelitis who presente with shortness of breath after missing HD. 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 S/p thoracentesis wit h 1300cc fluid removed, studies c/w transudative effusion. Cytology negative for malignant c ells. No growth on culture thus far. Patient is on room air. Of note, recent echo in March sh owed normal EF. 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 SBP 200s on a rrival here. Blood pressure improved after HD, resumption of home medications. Amlodipine an d losartan also added, Nephrology will CTM as outpatient. 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 At baseline currently. #Recent osteomyelitis Patient admitted 03/24- with T11-12 osteomyelitis and completed 6 weeks vanc/cefepime. Rep eat MRI again redemonstrated possible osteomyelitis. Dr Muñoz d/w ID who recommended no f urther antibiotics and CT guided vertebral biopsy, which will be arranged as outpatient. DISCHARGE MEDICATIONS: Discharge Medications New Medications Details amLODIPine 5 mg tablet Take 1 tablet by mouth 2 times daily. aka: NORVASC losartan 100 MG tablet Take 1 tablet by mouth Daily. aka: GIOVANA Start: 05/26/2019 Unchanged Medications Details acetaminophen 500 mg tablet Take 500 mg by mouth as needed for Pain. aka: TYLENOL albuterol 90 mcg/puff inhaler Inhale 2 puffs [...] 1 tablet by mouth Daily. calcium acetate 667 mg capsule Take 1 capsule by mouth 3 times daily (with meals). aka: PHOSLO cetirizine 10 mg tablet Take 10 mg by mouth Daily. aka: zyrTEC Cholecalciferol 4000 units Tabs Take 4,000 Units by mouth Daily. cloNIDine 0.3 mg/[address] 1 patch onto the skin Once a week. aka: CATAPRES epoetin karthik 4,000 units/mL injection Inject 0.85 mLs into the vein Three times a week. aka: EPOGEN, PROCRIT furosemide 80 mg tablet Take 1 tablet by mouth Daily. aka: LASIX gabapentin 100 mg capsule Take 2 capsules by mouth every morning. aka: NEURONTIN Insulin Pen Needle 31G X 5 MM Misc by Does not apply route. labetalol 300 MG tablet Take 1 tablet by mouth 2 times daily. aka: NORMODYNE Lancets Misc by Does not apply route. levothyroxine 75 mcg tablet Take 75 mcg by mouth every morning (before breakfast). aka: SYNTHROID NIFEdipine 90 mg ER tablet Take 1 tablet by mouth Daily. aka: PROCARDIA XL olopatadine 0.1% ophthalmic solution Place 1-2 drops into both eyes 2 times daily. aka: PATANOL ondansetron 4 mg tablet Take 1 tablet by mouth every 6 hours as needed for Nausea. aka: ZOFRAN pantoprazole 40 mg tablet Take 40 mg by mouth every morning (before breakfast). aka: PROTONIX Most recent weight: Input and output for last 24hrs: Wt Readings from Last 1 Encounters: 05/22/19 67.5 kg (148 lb 13 oz) I/O last 24 Hours: In: 390 [P.O.:390] Out: 2502 Vitals Ranges: Temp: [35.8 C (96.4 F)-37.2 C (98.9 F)] 36.8 C (98.3 F) Pulse: [47-64] 64 Resp: [16-22] 20 BP: (140-196)/(56-104) 180/76 Vitals: Temp: 36.8 C (98.3 F) BP: 180/76 Pulse: 64 Resp: 20 SpO2: 90 % SpO2 90 % on room air PHYSICAL EXAM: Patient seen and examined by me on 05/25/19 Gen: chronically ill appearing CV: regular rate and rhythm Pulm: LCAB PROCEDURES AND CONSULTS: Procedures: None Consults: Nephrology (Toni) PENDING RESULTS: None DISPOSITION AND DISCHARGE INSTRUCTIONS: Follow-up Information Schedule an appointment as soon as possible for a visit with Gopi Muñoz DO. Specialty: Nephrology Why: Nephrology follow up Contact information: [address] [place] [address] Condition: stable Diet: renal, cc Greater than 30 minutes were spent on discharge and coordination of post-hospital care. Electronically signed by: Nora Christina MD, 05/25/2019 11:24 [facility] documented in this enco unter Discharge Instructions Instructions Nora Christina MD - 05/25/2019Deanna, You were hospitalized with high blood pressure. Dr Muñoz added two blood pressure medica tions - amlodipine and losartan - which I have prescribed for you. Dr Muñoz will follow up with you regarding next steps for the changes in your spine we s aw on the MRI - this will likely include a biopsy in the [facility] down the line. Nora Christina MD documented in this encounter Medications at Time of Discharge + + + +---------+ + + | Medication | Sig | Dispensed | Refills | Start | End Date | | | | | | Date | | + + + +---------+ + + | acetaminophen | Take 500 mg by mouth | | 0 | | | | (TYLENOL) 500 mg | as needed for Pain. | | | | | | tablet [...] tablet by | 60 | 0 | 05/25/20 | | | (NORVASC) 5 mg | [...] +---------+ + + | cetirizine | Take 10 mg by mouth | | 0 | | | | (ZYRTEC) 10 mg | Daily. | | | | | | tablet [...] onto | 4 patch | 11 | // | | | (CATAPRES) 0.3 mg/24 | the skin Once a | | | 19 | | | hr patch | week. | | | | | + + + +---------+ + + | epoetin karthik | Inject 0.85 mLs into | | 0 | 08/30/20 | | | (EPOGEN, PROCRIT) | the vein Three | | | 19 | | | 4,000 units/mL | times a week. | | | | | | injection | | | | | | + + + +---------+ + + | furosemide (LASIX) | Take 1 tablet by | 90 | 3 | 05/11/20 | | | 80 mg tablet | mouth Daily. | tablet | | 19 | | + + [...] tablet by | 30 | 0 | 05/26/20 | | | 100 MG tablet | mouth Daily. | tablet | | 19 | | + + + +---------+ + + | NIFEdipine | Take 1 tablet by | 90 | 3 | 04/26/20 | | | (PROCARDIA XL) 90 mg | mouth Daily. | tablet | | 19 | | | ER tablet | | | [...] documented as of this encounter Progress Notes Sheri Huang, PharmD - 05/25/2019 3:31 AM PDTFormatting of this note might be differ ent from the original. VANCOMYCIN PER PHARMACY PROTOCOL: AMS/Drug Name - Vancomycin Patient: Ara Campos [id number] Admit: 05/20/2019 20:16 RELEVANT ALLERGIES: Amoxicillin 74 yrs old female patient admitted on 05/20/2019 for shortness of breath. Patient is receiv ing vancomycin starting on 05/24/2019 for osteomyelitis. Patient has a past medical histor y of Anemia, Arthritis, Back pain, Breast cancer ([facility]), Cancer ([facility]), Diabetes ([facility]), Heart disease, Hemodialysis patient ([facility]), History of blood clots, Hypercholesteremia, Hypertensio n, Hypothyroidism, Renal failure, Seasonal allergies, and Stroke (cerebrum) (FORM[facility]LY [facility]). . Risk fa ctors for MDR organisms include recent healthcare contact. HPI: Presented to ED with SOB after missing hemodialysis (ESRD - MWF HD). Patient has had T 11-12 osteomyelitis on 03/24 - previously and completed 6 weeks of vancomycin/ cefepime treatment. Antimicrobials - Current Antibiotic Dates of Therapy Vancomycin 05/24 - Antimicrobials - Discontinued Antibiotic Dates of Therapy Historical Vancomycin dosing (previous & current encounter): Vanc 1 g (03/24), 1250 mg (03/23 -03/24), 500 mg (03/31), 750 mg (03/27-03/29) Micro/Cultures/Diagnostics: Microbiology Results (Last 14 Days by Collected Date with Culture/Sensitivity) Procedure Component Value Units Date/Time Culture, Body Fluid, Sterile, Smear, with Anaerobes [[id number]] Collected: 05/22/19 1509 Order Status: Sent Lab Status: In process Updated: 05/22/19 151 Specimen: Body Fluid from Pleural Fluid, Left Narrative: The following orders were created for panel order Culture, Body Fluid, Sterile, Smear, wit h Anaerobes. Procedure Abnormality Status --------- ------ Culture, Body Fluid, Aerobe[[id number]] Preliminary result Culture, Body Fluid, Bre...[[id number]] In process Please view results for these tests on the individual orders. Culture, Fungus, Smear [[id number]] Collected: 05/22/19 150 Order Status: Sent Lab Status: In process Updated: 05/22/19 151 Specimen: Body Fluid from Pleural Fluid, Left Culture, Body Fluid, Aerobe [[id number]] Collected: 05/22/19 150 Order Status: Completed Lab Status: Preliminary result Updated: 05/24/19 1038 Specimen: Body Fluid from Pleural Fluid, Left Culture No growth to date Gram Stain Result 4+ White Blood Cells No organisms seen Culture, Body Fluid, Anaerobe [[id number]] Collected: 05/22/19 150 Order Status: Resulted Lab Status: In process Updated: 05/22/19 151 Specimen: Body Fluid from Pleural Fluid, Left Culture, MRSA [[id number]] Collected: 05/20/192021 Order Status: Completed Lab Status: Final result Updated: 05/22/19 0753 Specimen: Tissue from Nares Culture Negative for MRSA by chromogenic agar method. 2+ Coagulase positive Staphylococcus Culture, Blood, 2nd Specimen [[id number]] Collected: 05/18/19 1548 Order Status: Completed Lab Status: Final result Updated: 1945 RESULT NO GROWTH 6 DAYS RESULT Testing performed at [facility];[address] [place] [address];[place] [address] Comment: Testing performed at [facility], [address] [place] [address], [place] [address] Culture, Blood [[id number]] Collected: 05/18/19 150 Order Status: Completed Lab Status: Final result Updated: 1945 Specimen: Blood from Antecubital, Right RESULT NO GROWTH 6 DAYS RESULT Testing performed at [facility];[address] [place] [address];[place] [address] Comment: Testing performed at [facility], [address] [facility], [place] [address] Culture, Blood [[id number]] Collected: 05/18/19 1447 Order Status: Canceled Lab Status: No result Specimen: Blood from Antecubital, Left Relevant cultures from previous admits: Date Source Organisms Sensitivities 03/23 Blood cx X 2 NGTD 03/24 Body fluid thoracic vertebrae aerobic and anaerobic cx No anaerobes isolated 03/24 Body fluid, thoracic vertebrae AFB smear No acid fast bacillus isolated 03/24 Body fluid, thoracic vertebrae fungus smear No yeast or fungus isolated 03/24 Hep B Neg Admission Wt: Weight: 72.8 kg (160 lb 7.9 oz) Current Wt: Weight: 67.5 kg (148 lb 13 oz) Min/Max Temp past 24 hours:Temp Av.6 C (97.9 F) Min: 35.8 C (96.4 F) Max: 3 7.2 C (98.9 F) Estimated Creatinine Clearance: 7 mL/min (A) (based on SCr of 6.78 mg/dL (H)). Intake/Output Summary (Last 24 hours) at 05/25/2019 0331 Last data filed at 05/25/2019 0144 Gross per 24 hour Intake 690 ml Output 2502 ml Net -1812 ml Temp: [35.8 C (96.4 F)-37.2 C (98.9 F)] 36.9 C (98.5 F) Pulse: [47-64] 64 Resp: [16-22] 20 BP: (140-196)/(56-104) 153/67 Recent Labs Lab 05/25/19 0157 05/24/19 0654 05/23/19 0510 05/22/19 0312 05/21/19 0415 05/20/19 2248 05/20/19 2111 05/20/19205005/18/19 1545 WBC -- 4.6 4.8 5.6 6.9 -- -- -- 7.35 CREA -- 6.78* 5.83* 4.82* 7.26* -- -- 7.11* 6.1* VANCORANDOM 14.9 -- -- -- -- -- -- -- -- PROCALCITONI -- -- -- -- 0.11 -- -- -- -- CRP -- -- -- -- 51.80* -- 51.20* -- 4.4* ESR -- -- -- -- 48* 52* -- -- 90* Imagin/07: CXR - increased left pleural effusion 05/21: CT Chest - upper lung predominant ground glass opacity, suspicious for pulmonary francine a, low attentuation material in mainstem and right upper lobe bronchi may reflect secretions or aspirate, and associated pneumonitis cannot be excluded, enlarged mediastinal nodes, pot entially reactive atherosclerosis, at lesat boderline to mild cardiomegaly and enlargement o f the main pulmonary artery, may suggest pulmonary arterial HTN. Slightly more pronounced en dplate erosion or irregularity at T11 - 12. Discitis/osteomyelitis remains a concern. 05/22: US guided thoracentesis 05/23: MRI lumbar spine - unchanged appearance at T11 - T12 with persistent bone marrow francine a, irregular endplate changes, and paravertebral soft tissue edema, most compatible with hx of discitis osteomyelitis. Date 05/24 05/25 Dialysis (yes/no) yes no Vancomycin level -- 14.9 Vancomycin Dose 1250 mg 500 mg Assessment: Vancomycin Day # 2 Other antibiotics: none Target Trough: 15-20 mcg/ml for osteomyelitis WBC: wnl; Renal: 7 ml/min (hemodialysis MWF); Temp:afebrile; Culture: 05/22 - body fluid s terile smear cx w/ anaerobes - in process, 05/22 - fungus smear cx - in process, 05/22 - body fl uid cx w/aerobes - 4 + WBC, NGTD, 05/22 - body fluid cx w/ anaerobe - in process, 05/20 - MRSA c x nares - neg for MRSA (2+ positive staph); VS: bradycardic and htn Prior to admission dialysis schedule: [facility] Vancomycin Dosing in HD patients: Loading dose of 15-20 mg/kg with subsequent dosing based on post-HD levels. If post-hemodialysis (5-6 hrs after completiong of HD) vancomycin concentration is: - >20 mcg/mL: hold post-HD dose - 10-20 mcg/mL: 500 mg after HD - <10 mcg/mL: 750-1000 mg after HD Plan: 1. Vancomycin 500mg IV x 1 dose 1. Vancomycin post-HD level to be ordered after next dialysis 2. Next Dialysis scheduled for likely Wednesday 2. Will monitor renal function, clinical status, infection markers daily with troughs and d ose adjustment as needed. Definitions: For the purpose of this protocol, "trough" means a steady state trough before the 4th dose of the initial/new dosing regimen and "level" means all other levels drawn including before the 3rd dose References: Vancomycin dosing protocol IDSA guidelines Procalcitonin Algorithm Per P&T-approved Vancomycin Dosing and Monitoring Protocol Electronically signed by: Sheri Huang PharmD 05/25/2019 3:31 Karena Slater RN - 05/24/2019 10:20 PM P DTPt HD completed with no complications, UF goal met. Primary RN notified of pts c/o lower back pain. Primary RN medicated pt and pt able to feel better and HD completed. VSS on r/a.E lectronically signed by Karena Lao, LISA at 05/24/2019 10:21 PM Gopi Hassan DO - 05/24/2019 10:16 PM PDTRENAL I discussed MRI , CRP, ESR, Cxs, case with his previous ID Child Care Education Coordinator, Dr. Nick Miller MD . He recommends a CT guided Bx of the T11 or T12 vertebra for H&E and Cx. He suggested that he would not Rx this with further AB Rx until after a Bx. He is not convin [place] that this is infectious, at this point? I called Radiology, and our Rad. does not do CT guided vertebral Bx's here. Therefore, sahi kearney confer with [facility] IR, outpt. She was agreeable to staying one more nite for HD and clarif y AB regimen. Vanc. /Cefepime were given, IV, during discussion, after reviewing MRI report but before the phone conversation with Dr. Jung. BP control is better. Her Mental status is very clear. Also had HD x 5 hrs, 2K+, 35 HCO3 a nd tolerated well. [facility] Joo Rodriguez, [employer] - 05/24/2019 3:46 PM PDT VANCOMYCIN PER PHARMACY PROTOCOL: AMS/Drug Name - Vancomycin Patient: Ara Campos [id number] Admit: 05/20/2019 20:16 RELEVANT ALLERGIES: Amoxicillin 74 yrs old female patient admitted on 05/20/2019 for shortness of breath. Patient is receiv ing vancomycin starting on 05/24/2019 for osteomyelitis. Patient has a past medical histor y of Anemia, Arthritis, Back pain, Breast cancer ([facility]), Cancer ([facility]), Diabetes ([facility]), Heart disease, Hemodialysis patient ([facility]), History of blood clots, Hypercholesteremia, Hypertensio n, Hypothyroidism, Renal failure, Seasonal allergies, and Stroke (cerebrum) ([facility]). . Risk fa ctors for MDR organisms include recent healthcare contact. HPI: Presented to ED with SOB after missing hemodialysis (ESRD - MWF HD). Patient has had T 11-12 osteomyelitis on 03/24 - previously and completed 6 weeks of vancomycin/ cefepime treatment. Antimicrobials - Current Antibiotic Dates of Therapy Vancomycin 05/24 - Antimicrobials - Discontinued Antibiotic Dates of Therapy Historical Vancomycin dosing (previous & current encounter): Vanc 1 g (03/24), 1250 mg (03/23 -03/24), 500 mg (03/31), 750 mg (03/27-03/29) Micro/Cultures/Diagnostics: Microbiology Results (Last 14 Days by Collected Date with Culture/Sensitivity) Procedure Component Value Units Date/Time Culture, Body Fluid, Sterile, Smear, with Anaerobes [[id number]] Collected: 05/22/19 1505 Order Status: Sent Lab Status: In process Updated: 05/22/19 1519 Specimen: Body Fluid from Pleural Fluid, Left Narrative: The following orders were created for panel order Culture, Body Fluid, Sterile, Smear, wit h Anaerobes. Procedure Abnormality Status --------- ------ Culture, Body Fluid, Aerobe[[id number]] Preliminary result Culture, Body Fluid, Bre...[[id number]] In process Please view results for these tests on the individual orders. Culture, Fungus, Smear [[id number]] Collected: 05/22/19 1509 Order Status: Sent Lab Status: In process Updated: 05/22/19 1510 Specimen: Body Fluid from Pleural Fluid, Left Culture, Body Fluid, Aerobe [[id number]] Collected: 05/22/19 1509 Order Status: Completed Lab Status: Preliminary result Updated: 05/24/19 1038 Specimen: Body Fluid from Pleural Fluid, Left Culture No growth to date Gram Stain Result 4+ White Blood Cells No organisms seen Culture, Body Fluid, Anaerobe [[id number]] Collected: 05/22/19 1509 Order Status: Resulted Lab Status: In process Updated: 05/22/19 151 Specimen: Body Fluid from Pleural Fluid, Left Culture, MRSA [[id number]] Collected: 05/20/192021 Order Status: Completed Lab Status: Final result Updated: 05/22/19 0753 Specimen: Tissue from Nares Culture Negative for MRSA by chromogenic agar method. 2+ Coagulase positive Staphylococcus Culture, Blood, 2nd Specimen [[id number]] Collected: 05/18/19 1548 Order Status: Completed Lab Status: Final result Updated: 05/24/19 0546 RESULT NO GROWTH 6 DAYS RESULT Testing performed at [facility];[address] [place] [address] Comment: Testing performed at [facility], [address] [place] [address] Culture, Blood [[id number]] Collected: 05/18/19 1508 Order Status: Completed Lab Status: Final result Updated: 05/24/19 0546 Specimen: Blood from Antecubital, Right RESULT NO GROWTH 6 DAYS RESULT Testing performed at [facility];[address] [place] [address] Comment: Testing performed at [facility], [address] [place] [address] Culture, Blood [[id number]] Collected: 05/18/19 1447 Order Status: Canceled Lab Status: No result Specimen: Blood from Antecubital, Left Relevant cultures from previous admits: Date Source Organisms Sensitivities 7/11 Blood cx X 2 NGTD 03/24 Body fluid thoracic vertebrae aerobic and anaerobic cx No anaerobes isolated 03/24 Body fluid, thoracic vertebrae AFB smear No acid fast bacillus isolated 03/24 Body fluid, thoracic vertebrae fungus smear No yeast or fungus isolated 03/24 Hep B Neg Admission Wt: Weight: 72.8 kg (160 lb 7.9 oz) Current Wt: Weight: 67.5 kg (148 lb 13 oz) Min/Max Temp past 24 hours:Temp Av.4 C (97.5 F) Min: 35.8 C (96.4 F) Max: 3 6.7 C (98 F) Estimated Creatinine Clearance: 7 mL/min (A) (based on SCr of 6.78 mg/dL (H)). Intake/Output Summary (Last 24 hours) at 05/24/2019 1546 Last data filed at 05/24/2019 0400 Gross per 24 hour Intake 525 ml Output Net 525 ml Temp: [35.8 C (96.4 F)-36.7 C (98 F)] 36.7 C (98 F) Pulse: [53-62] 62 Resp: [16-20] 20 BP: (142-180)/(55-80) 180/76 Recent Labs Lab 05/24/19 0654 05/23/19 0510 05/22/19 0312 05/21/19 0415 05/20/19 2248 05/20/19 2111 05/20/19 2051 05/18/19 1545 WBC 4.6 4.8 5.6 6.9 -- -- -- 7.35 CREA 6.78* 5.83* 4.82* 7.26* -- -- 7.11* 6.1* PROCALCITONI -- -- -- 0.11 -- -- -- -- CRP -- -- -- 51.80* -- 51.20* -- 4.4* ESR -- -- -- 48* 52* -- -- 90* Imagin/07: CXR - increased left pleural effusion 05/21: CT Chest - upper lung predominant ground glass opacity, suspicious for pulmonary francine a, low attentuation material in mainstem and right upper lobe bronchi may reflect secretions or aspirate, and associated pneumonitis cannot be excluded, enlarged mediastinal nodes, pot entially reactive atherosclerosis, at lesat boderline to mild cardiomegaly and enlargement o f the main pulmonary artery, may suggest pulmonary arterial HTN. Slightly more pronounced en dplate erosion or irregularity at T11 - 12. Discitis/osteomyelitis remains a concern. 05/22: US guided thoracentesis 05/23: MRI lumbar spine - unchanged appearance at T11 - T12 with persistent bone marrow francine a, irregular endplate changes, and paravertebral soft tissue edema, most compatible with hx of discitis osteomyelitis. Date 05/24 Dialysis (yes/no) yes Vancomycin level -- Vancomycin Dose 1250 mg Assessment: Vancomycin Day # 1 Other antibiotics: none Target Trough: 15-20 mcg/ml for osteomyelitis WBC: wnl; Renal: 7 ml/min (hemodialysis MWF); Temp:afebrile; Culture: 05/22 - body fluid s terile smear cx w/ anaerobes - in process, 05/22 - fungus smear cx - in process, 05/22 - body fl uid cx w/aerobes - 4 + WBC, NGTD, 05/22 - body fluid cx w/ anaerobe - in process, 05/20 - MRSA c x nares - neg for MRSA (2+ positive staph); VS: HR low and BP elevated Prior to admission dialysis schedule: [facility] Vancomycin Dosing in HD patients: Loading dose of 15-20 mg/kg with subsequent dosing based on post-HD levels. If post-hemodialysis (5-6 hrs after completiong of HD) vancomycin concentration is: - >20 mcg/mL: hold post-HD dose - 10-20 mcg/mL: 500 mg after HD - <10 mcg/mL: 750-1000 mg after HD Plan: 1. Vancomycin load of 1250 mg (~18.5 mg/kg) IVPB x 1 given on 05/24/2019 @ 2100. 1. Vancomycin post-HD level ordered 05/25 @ 0200 2. Next Dialysis scheduled for likely Wednesday 2. Will monitor renal function, clinical status, infection markers daily with troughs and d ose adjustment as needed. Definitions: For the purpose of this protocol, "trough" means a steady state trough before the 4th dose of the initial/new dosing regimen and "level" means all other levels drawn including before the 3rd dose References: Vancomycin dosing protocol IDSA guidelines Procalcitonin Algorithm Per P&T-approved Vancomycin Dosing and Monitoring Protocol Electronically signed by: Joo Bo, [employer] 05/24/2019 15:46Electroni terri signed by Joo Bo, [employer] at 05/24/2019 4:49 PM Kwame Guerin MD - 05/24/2019 11:04 AM PDTFormatting of this note might be different from the origin alSWEDISH MEDICAL CENTER ISSAQUAHEulalia [facility] [place] [facility] PROGRESS NOTE Patient: Ara Campos : 1945: Age: 74 y.o. MedRec: [id number] Admission date: 05/20/2019 Hospital day # : 4 Physician author: Nora Christina MD Today: 05/24/2019 Assessment and Hospital Course Active Hospital Problems Diagnosis Hypoxia Osteomyelitis of thoracic region ESRD (end stage renal disease) on dialysis Essential hypertension DM (diabetes mellitus), type 2 Resolved Hospital Problems No resolved problems to display. 74 yo F with history of ESRD (MWF HD), hypertension, diabetes, recent T11-12 osteomyelitis who presente with shortness of breath after missing HD. Plan #Acute hypoxic respiratory failure #Left pleural effusion #Acute congestive heart failure in the s/o ESRD with HD nonadherence Likely 2/2 volume overload in the setting of ESRD and missing HD last Wednesday. S/p thoracent esis with 1300cc fluid removed. No growth on culture thus far. Patient is on room air curren tly. Of note, recent echo in March showed normal EF. #Hypertensive urgency in the s/o volume overload Suspect chronic nonadherence. SBP 200s on arrival here. Blood pressure improved after resum ption of home medications (amlodipine, clonidine, labetalol, losartan) and HD. 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 At baseline currently. #Recent osteomyelitis Patient admitted 03/24- with T11-12 osteomyelitis and completed 6 weeks vanc/cefepime. Rep eat MRI again redemonstrated possible osteomyelitis - vanc and cefepime have been resumed, Deepa Muñoz is discussing case with ID. #Diabetes Blood sugars at goal. CCM. Patient is again very upset about the food provided at the [facility] and is eating little to no food here. FEN: cc Ppx: SCD Disposition: likely DC tomorrow after antibiotic plan in place Subjective CC: no acute complaints Patient is tearful and very upset today. Denies acute medical complaints. Does not want to be in the hospital, dislikes the food here, thinks she is being "used as an experiment" and doesn't want more antibiotics. Difficult to console/redirect. ROS was performed and was negative except as noted above. Exam Gen: WDWN, nad HEENT: MMM, neck supple CV: regular rate and rhythm, no m/r/g Pulm: diminished at bilateral bases, no wheezing, normal wob Abdominal: soft, nontender, nondistended, normal bowel tones Extremities: well perfused, no edema Skin: warm, dry, no rashes Neuro: alert, CN intact, no focal deficits Psych: tearful, upset, limited insight Allergies: Allergies Allergen Reactions Amoxicillin Other (See Comments) Patient stated she can't tolerate amoxicillin and stated its hard on her stomach. Lisinopril Pt states she does not remember what was the reaction she had to lisinopril. I asked her if it gave her a cough and she said "I cant remember, maybe it made me sick to my stomach". Naprosyn [Naproxen] Current Medications: Current Facility-Administered Medications Medication Dose Route Frequency Provider Last Rate Last Dose acetaminophen (TYLENOL) tablet 650 mg 650 mg Oral Q4H PRN Olegario Peng MD albumin 25% IVPB 12.5 g 12.5 g Intravenous PRN Gopi Muñoz DO aluminum & magnesium hydroxide-simethicone (MAALOX PLUS REGULAR STRENGTH) 200-200-20 mg /5 mL suspension 30 mL 30 mL Oral Q4H PRN Olegario Peng MD amLODIPine (NORVASC) tablet 5 mg 5 mg Oral BID Gopi Muñoz DO 5 mg at 09 aspirin EC tablet 81 mg 81 mg Oral Daily Olegario Peng MD 81 mg at 05/24/19 09 calcium acetate (PHOSLO) capsule 667 mg 667 mg Oral TID Olegario Peng MD 667 m g at 05/24/19 09 cholecalciferol (VITAMIN D-3) tablet 2,000 Units 2,000 Units Oral Daily Olegario jimenez MD 2,000 Units at 05/24/19 0904 cloNIDine (CATAPRES) 0.1 mg/24 hr 1 patch 1 patch Transdermal Weekly Olegario Peng MD 1 patch at 05/20/19 2114 cloNIDine (CATAPRES) 0.2 mg/24 hr 1 patch 1 patch Transdermal Weekly Olegario Peng MD 1 patch at 05/20/19 2104 dextrose 50% injection 12.5-25 g 12.5-25 g Intravenous PRN Olegario Peng MD And dextrose 10% (D10W) infusion Intravenous Continuous PRN Olegario Peng MD docusate sodium (COLACE) capsule 100 mg 100 mg Oral BID PRN Olegario Peng MD furosemide (LASIX) 240 mg in sodium chloride 0.9% 50 mL IVPB 240 mg Intravenous BID (8 and 16) Gopi Muñoz DO 74 mL/hr at 05/24/19 1044 240 mg at 05/24/19 1044 heparin 5,000 units/mL injection 5,000 Units 5,000 Units Subcutaneous 2 times per day Gopi Muñoz DO 5,000 Units at 05/23/19 2143 insulin lispro (humaLOG KWIKPEN) injection (pen) 0-6 Units 0-6 Units Subcutaneous 4x D aily WC and HS Olegario Peng MD labetalol (NORMODYNE) tablet 300 mg 300 mg Oral BID Olegario Peng MD 300 mg at 0903 labetalol (TRANDATE) 5 mg/mL injection 20 mg 20 mg Intravenous Q2H PRN Gopi esteves DO 20 mg at 05/21/19 1406 levothyroxine (SYNTHROID) tablet 75 mcg 75 mcg Oral QAM AC Olegario Peng MD 75 mc g at 05/24/19 0654 losartan (COZAAR) tablet 100 mg 100 mg Oral Daily Gopi Muñoz DO 100 mg at 0 05/24/19 0904 mannitol 25% injection 12.5 g 12.5 g Intravenous PRN Gopi Muñoz DO melatonin tablet 3 mg 3 mg Oral Nightly PRN Olegario Peng MD 3 mg at 05/22/19 004 9 olopatadine (PATANOL) 0.1% ophthalmic solution 1-2 drop 1-2 drop Both Eyes BID Olegario Peng MD 1 drop at 05/24/19 0912 ondansetron (ZOFRAN) injection 4 mg 4 mg Intravenous Q6H PRN Olegario Peng MD oxyCODONE-acetaminophen (PERCOCET) 5-325 mg per tablet 1 tablet 1 tablet Oral Q6H PRN Gopi Muñoz, 1 tablet at 05/24/19 0754 pantoprazole (PROTONIX) DR tablet 40 mg 40 mg Oral QAM AC Olegario Peng MD 40 mg at 05/24/19 0654 pharmacy consult - other medications/reasons Other Pharmacy Consult Nora Christina MD polyethylene glycol (MIRALAX) powder 17 g 17 g Oral Daily PRN Olegario Peng MD renal multivitamin (DIALYVITE, VOL-CARE) tablet 1 tablet 1 tablet Oral Daily Olegario feliz MD 1 tablet at 05/24/19 0904 sodium chloride 0.9% (NS) infusion 250 mL 250 mL Intravenous Q30 Min PRN Gopi gillettemel, DO vancomycin per pharmacy Other Pharmacy Consult Nora Christina MD Current Infusions: dextrose 10% Objective Data Point of care glucose Recent Labs Lab 05/23/19 2145 05/23/19 1732 05/23/19 1205 05/23/19 0639 05/22/19 2024 05/22/19 1712 POCGLU 110* 73 82 77 138* 72 Labs last 24 hours Recent Results (from the past 24 hour(s)) POC Glucose Collection Time: 05/23/19 12:05 Result Value Ref Range Glucose, POC 82 70 - 109 mg/dL POC Glucose Collection Time: 05/23/19 17:32 Result Value Ref Range Glucose, POC 73 70 - 109 mg/dL POC Glucose Collection Time: 05/23/19 21:45 Result Value Ref Range Glucose, POC 110 (H) 70 - 109 mg/dL Renal Function Panel Collection Time: 05/24/19 6:54 Result Value Ref Range Na 134 (L) [...] mg/dL BUN/Creatinine Ratio 5.9 CBC with Differential Collection Time: 05/24/19 6:54 Result Value Ref Range WBC 4.6 4.0 [...] Absolute nRBC 0.00 0.00 - 0.01 K/uL Micro results (more choices using dot micro) Microbiology Results (72 hrs) Procedure Component Value Units Date/Time Culture, Body Fluid, Sterile, Smear, with Anaerobes [[id number]] Collected: 05/22/19 150 Order Status: Sent Lab Status: In process Updated: 05/22/19 151 Specimen: Body Fluid from Pleural Fluid, Left Narrative: The following orders were created for panel order Culture, Body Fluid, Sterile, Smear, wit h Anaerobes. Procedure Abnormality Status --------- ------ Culture, Body Fluid, Aerobe[[id number]] Preliminary result Culture, Body Fluid, Bre...[[id number]] In process Please view results for these tests on the individual orders. Culture, Fungus, Smear [[id number]] Collected: 05/22/191508 Order Status: Sent Lab Status: In process Updated: 05/22/19 151 Specimen: Body Fluid from Pleural Fluid, Left Culture, Body Fluid, Aerobe [[id number]] Collected: 05/22/19 150 Order Status: Completed Lab Status: Preliminary result Updated: 05/24/19 1038 Specimen: Body Fluid from Pleural Fluid, Left Culture No growth to date Gram Stain Result 4+ White Blood Cells No organisms seen Culture, Body Fluid, Anaerobe [[id number]] Collected: 05/22/191508 Order Status: Resulted Lab Status: In process Updated: 05/22/191509 Specimen: Body Fluid from Pleural Fluid, Left Radiology results (more choices using dot risresults) Mri Lumbar Spine Wo Contrast Result Date: 05/23/2019 TECHNIQUE: MRI of the lumbar spine with sequences to include sagittal T1, sagittal STIR, co tatiana STIR, axial T1, axial T2, sagittal T2, and coronal T2. CLINICAL INFORMATION: Would lik e to get MRI, without Gd, (has CKD), for F/U of diskitis of T11-T12, s/p AB Rx. Thanks. COM PARISON: MRI and CT dated 03/23/2019. FINDINGS: The lowest functional disc level is presumed to represent L5/S1. The conus medullaris terminates at L1. The cauda equina appears normal. Overall unchanged appearance of irregular endplate changes at T11-T12 with diffuse T11 and T12 vertebral body bone marrow edema. Focal high T2 signal intensity noted within the right anterior aspect of the intervertebral disc space. Mild anterior paravertebral soft tissue ed sarah, most notable right of midline, anterior to T9-L2. No abnormal fluid collection to sugge st abscess. Unchanged mixed Modic endplate changes at L2-L3, superior L4, and anterior left lateral L5-S1. Mild probable Modic endplate changes are also noted at anterior T10-T11. Mild leftward curvature of the lumbar spine. Unchanged mild anterolisthesis of L5. Unchanged lyudmila earance of the recently described multilevel lumbar spondylosis with multilevel degenerative disc disease, disc protrusions/bulge and facet arthrosis. Unchanged spinal canal stenosis, mild at L3-L4, moderate L4-L5, and mild L5-S1. Stable varying degrees of neural foraminal st enosis, most notable at L5-S1 with severe left stenosis. IMPRESSION - Overall unchanged appe arance at T11-T12 with persistent bone marrow edema, irregular endplate changes, and paraver tebral soft tissue edema, most compatible with history of discitis osteomyelitis. No abscess identified. Stable multilevel lumbar spondylosis. Dictated and Signed by: Jessie Lai Electronically signed: 05/23/2019 6:33 PM Us Guided Thoracentesis Wo Chest Tube Result Date: 05/22/2019 US GUIDED THORACENTESIS WO CHEST TUBE 05/22/2019 2:36 PM HISTORY: Would like to do US guided thoracentesis of moderate size left pleural effusion, tomorrow. Thanks. See CT study. COMPAR JARRET: None. PROTOCOL: After explaining the risks and benefits of the procedure, informed con sent was obtained from the patient. Risks discussed included bleeding, infection, and pneumo thorax. Under ultrasound guidance, the largest pocket of fluid was localized in the left low er chest. This region was cleansed and draped in the usual sterile fashion. Lidocaine was us ed for local anesthesia. A small skin tana was made. Using a thoracentesis needle and trocar system, the pleural space was accessed. There was return of clear yellow. Subsequently, 130 0 mL of the fluid was aspirated and sent to the laboratory. The patient tolerated the proced ure well. IMPRESSION - Successful ultrasound-guided thoracentesis. Dictated and Signed by: Arie Nunez MD Electronically signed: 05/22/2019 3:29 PM Vitals Ranges: Temp: [35.7 C (96.3 F)-36.7 C (98 F)] 36.7 C (98 F) Pulse: [53-62] 62 Resp: [16-20] 20 BP: (142-180)/(55-80) 180/76 Vitals: Temp: 36.7 C (98 F) BP: 180/76 Pulse: 62 Resp: 20 SpO2: 90 % SpO2 90 % on room air at flow rate 6L/min Nora Christina MD 05/24/2019 11:04 [facility] Michelle Solorzano Phar mD - 05/23/2019 6:27 PM PDT PHARMACY SERVICES: ADMISSION MEDICATION REVIEW Ara Campos is a 74 y.o. female admitted on 05/20/2019. Patient is not a reliable historian. Location of Patient when reviewed: ? ED ? Medical Floor Patient s prior to admit medication and over the counter (OTC) medications/herbal supplem ents list obtained from: ? Verbal interview ? Patient UNABLE to recall name, strength, and direction ? Pharmacy list names: [facility] ? [facility] insurance reported information Vaccines up to date? Yes No Unsure Influenza X Pneumococcal X Tdap X Shingles X Noted medications discrepancies or medication-related issues: Medication added: Medication: Prior to Admission Sig: Patient taking differently as: Cetirizine 10 mg tablet Take 1 tablet by mouth daily Acetaminophen 500 mg tablet Take 1 tablet by mouth as needed Patient stated she doesn't kno w how much she takes, she just takes it Recreational Substances, Tobacco & Alcohol use/frequency: ? 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 She either di d not want to take her medications, or she stated that she did not know if she was taking th em. She did not want to do the interview. Best possible HUMAN RESOURCES EXECUTIVE ASSISTANT medication list after pharmacy review: Medication review performed and electronically signed by Kerry Jordan, Clamp Remover 05/23/2019 16:20 Reviewed by Michelle Ochoa PharmD 05/23/2019 18:26 Nora Guerin MD - 05/23/2019 3:20 PM PDT [facility] PROGRESS NOTE Patient: Ara Campos : 1945: Age: 74 y.o. MedRec: [id number] Admission date: 05/20/2019 Hospital day # : 3 Physician author: Nora Christina MD Today: 05/23/2019 Assessment and Hospital Course Active Hospital Problems Diagnosis Hypoxia Osteomyelitis of thoracic region ESRD (end stage renal disease) on dialysis Essential hypertension DM (diabetes mellitus), type 2 Resolved Hospital Problems No resolved problems to display. 74 yo F with history of ESRD (MWF HD), hypertension, diabetes, recent T11-12 osteomyelitis who presente with shortness of breath after missing HD. Plan #Acute hypoxic respiratory failure #Left pleural effusion Likely 2/2 volume overload in the setting of ESRD and missing HD last Wednesday. S/p thoracent esis with 1300cc fluid removed. Studies/cultures pending. Patient is on room air currently. Of note, recent echo in March showed normal EF. #Hypertensive urgency in the s/o volume overload Suspect chronic nonadherence. SBP 200s on arrival here. Blood pressure improved after resum ption of home medications (amlodipine, clonidine, labetalol, losartan) and HD. 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 At baseline currently. #Recent osteomyelitis Patient admitted 03/24- with T11-12 osteomyelitis and completed 6 weeks vanc/cefepime. Rep eat MRI is ordered for reevaluation, cannot be done until later today given need for conscio us sedation for study. #Diabetes Blood sugars at goal. CCM. Patient is very upset about the food provided at the hospital. FEN: cc Ppx: SCD Disposition: likely DC tomorrow if MRI negative Subjective CC: no acute complaints Patient's only complaints today are about the hospital food, the difficulty she has in ana m ng it to HD. Wants to go home. Denies back pain. Denies headache/nausea. Denies chest pain. ROS was performed and was negative except as noted above. Exam Gen: WDWN, nad HEENT: MMM, neck supple CV: regular rate and rhythm, no m/r/g Pulm: diminished at bilateral bases, no wheezing, normal wob Abdominal: soft, nontender, nondistended, normal bowel tones Extremities: well perfused, no edema Skin: warm, dry, no rashes Neuro: alert, CN intact, no focal deficits Psych: normal mood and affect Allergies: Allergies Allergen Reactions Amoxicillin Other (See Comments) Patient stated she can't tolerate amoxicillin and stated its hard on her stomach. Lisinopril Pt states she does not remember what was the reaction she had to lisinopril. I asked her if it gave her a cough and she said "I cant remember, maybe it made me sick to my stomach". Naprosyn [Naproxen] Current Medications: Current Facility-Administered Medications Medication Dose Route Frequency Provider Last Rate Last Dose acetaminophen (TYLENOL) tablet 650 mg 650 mg Oral Q4H PRN Olegario Peng MD albumin 25% IVPB 12.5 g 12.5 g Intravenous PRN Gopi Muñoz DO aluminum & magnesium hydroxide-simethicone (MAALOX PLUS REGULAR STRENGTH) 200-200-20 mg /5 mL suspension 30 mL 30 mL Oral Q4H PRN Olegario Peng MD amLODIPine (NORVASC) tablet 5 mg 5 mg Oral BID Gopi Muñoz DO 5 mg at 0835 aspirin EC tablet 81 mg 81 mg Oral Daily Olegario Peng MD 81 mg at 05/23/19 0835 calcium acetate (PHOSLO) capsule 667 mg 667 mg Oral TID Olegario Peng MD 667 m g at 05/23/19 0835 cholecalciferol (VITAMIN D-3) tablet 2,000 Units 2,000 Units Oral Daily Olegario jimenez MD 2,000 Units at 05/23/19 0835 cloNIDine (CATAPRES) 0.1 mg/24 hr 1 patch 1 patch Transdermal Weekly Olegario Peng MD 1 patch at 05/20/192113 cloNIDine (CATAPRES) 0.2 mg/24 hr 1 patch 1 patch Transdermal Weekly Olegario Peng MD 1 patch at 09/07/19 2104 dextrose 50% injection 12.5-25 g 12.5-25 g Intravenous PRN Olegario Peng MD And dextrose 10% (D10W) infusion Intravenous Continuous PRN Olegario Peng MD docusate sodium (COLACE) capsule 100 mg 100 mg Oral BID PRN Olegario Peng MD furosemide (LASIX) 240 mg in sodium chloride 0.9% 50 mL IVPB 240 mg Intravenous BID (8 and 16) Gopi Muñoz DO 74 mL/hr at 05/23/19 0835 240 mg at 05/23/19 0835 heparin 5,000 units/mL injection 5,000 Units 5,000 Units Subcutaneous 2 times per day Gopi Muñoz DO 5,000 Units at 05/23/19 0835 insulin lispro (humaLOG KWIKPEN) injection (pen) 0-6 Units 0-6 Units Subcutaneous 4x D aily WC and HS Olegario Peng MD labetalol (NORMODYNE) tablet 300 mg 300 mg Oral BID Olegario Peng MD 300 mg at 0834 labetalol (TRANDATE) 5 mg/mL injection 20 mg 20 mg Intravenous Q2H PRN Gopi esteves DO 20 mg at 05/21/19 1406 levothyroxine (SYNTHROID) tablet 75 mcg 75 mcg Oral QAM AC Olegario Peng MD 75 mc g at 05/23/19 0631 losartan (COZAAR) tablet 100 mg 100 mg Oral Daily Gopi Muñoz DO 100 mg at 0 05/23/19 0835 mannitol 25% injection 12.5 g 12.5 g Intravenous PRN Gopi Muñoz DO melatonin tablet 3 mg 3 mg Oral Nightly PRN Olegario Peng MD 3 mg at 05/22/19 004 9 olopatadine (PATANOL) 0.1% ophthalmic solution 1-2 drop 1-2 drop Both Eyes BID Olegario Peng MD 1 drop at 05/23/19 1044 ondansetron (ZOFRAN) injection 4 mg 4 mg Intravenous Q6H PRN Olegario Pegn MD oxyCODONE-acetaminophen (PERCOCET) 5-325 mg per tablet 1 tablet 1 tablet Oral Q6H PRN Gopi Muñoz DO 1 tablet at 05/23/19 1044 pantoprazole (PROTONIX) DR tablet 40 mg 40 mg Oral QAM AC Olegario Peng MD 40 mg at 05/23/19 0631 polyethylene glycol (MIRALAX) powder 17 g 17 g Oral Daily PRN Olegario Peng MD renal multivitamin (DIALYVITE, VOL-CARE) tablet 1 tablet 1 tablet Oral Daily Olegario feliz MD 1 tablet at 05/23/19 0835 sodium chloride 0.9% (NS) infusion 250 mL 250 mL Intravenous Q30 Min PRN Gopi oconnell DO Current Infusions: dextrose 10% Objective Data Point of care glucose Recent Labs Lab 05/23/19 1205 05/23/19 0639 05/22/19 2024 05/22/19 1712 05/22/19 1123 05/22/19 0646 POCGLU 82 77 138* 72 94 87 Labs last 24 hours Recent Results (from the past 24 hour(s)) POC Glucose Collection Time: 05/22/19 17:12 Result Value Ref Range Glucose, POC 72 70 - 109 mg/dL POC Glucose Collection Time: 05/22/19 20:24 Result Value Ref Range Glucose, POC 138 (H) 70 - 109 mg/dL Renal Function Panel Collection Time: 05/23/19 5:10 Result Value Ref Range Na 133 (L) [...] mg/dL BUN/Creatinine Ratio 6.0 CBC with Differential Collection Time: 05/23/19 5:10 Result Value Ref Range WBC 4.8 4.0 [...] Absolute nRBC 0.00 0.00 - 0.01 K/uL POC Glucose Collection Time: 05/23/19 6:39 Result Value Ref Range Glucose, POC 77 70 - 109 mg/dL POC Glucose Collection Time: 05/23/19 12:05 Result Value Ref Range Glucose, POC 82 70 - 109 mg/dL Micro results (more choices using dot micro) Microbiology Results (72 hrs) Procedure Component Value Units Date/Time Culture, Body Fluid, Sterile, Smear, with Anaerobes [[id number]] Collected: 05/22/19 150 Order Status: Sent Lab Status: In process Updated: 05/22/191512 Specimen: Body Fluid from Pleural Fluid, Left Narrative: The following orders were created for panel order Culture, Body Fluid, Sterile, Smear, wit h Anaerobes. Procedure Abnormality Status --------- ------ Culture, Body Fluid, Aerobe[[id number]] Preliminary result Culture, Body Fluid, Bre...[[id number]] In process Please view results for these tests on the individual orders. Culture, Fungus, Smear [[id number]] Collected: 05/22/19 1509 Order Status: Sent Lab Status: In process Updated: 05/22/19 1510 Specimen: Body Fluid from Pleural Fluid, Left Culture, Body Fluid, Aerobe [[id number]] Collected: 05/22/19 150 Order Status: Completed Lab Status: Preliminary result Updated: 05/23/19 09 Specimen: Body Fluid from Pleural Fluid, Left Culture No growth to date Gram Stain Result 4+ White Blood Cells No organisms seen Culture, Body Fluid, Anaerobe [[id number]] Collected: 05/22/19 150 Order Status: Resulted Lab Status: In process Updated: 05/22/19 151 Specimen: Body Fluid from Pleural Fluid, Left Culture, MRSA [[id number]] Collected: 05/20/192021 Order Status: Completed Lab Status: Final result Updated: 05/22/19 075 Specimen: Tissue from Nares Culture Negative for MRSA by chromogenic agar method. 2+ Coagulase positive Staphylococcus Radiology results (more choices using dot risresults) Us Guided Thoracentesis Wo Chest Tube Result Date: 05/22/2019 US GUIDED THORACENTESIS WO CHEST TUBE 05/22/2019 2:36 PM HISTORY: Would like to do US guided thoracentesis of moderate size left pleural effusion, tomorrow. Thanks. See CT study. COMPAR JARRET: None. PROTOCOL: After explaining the risks and benefits of the procedure, informed con sent was obtained from the patient. Risks discussed included bleeding, infection, and pneumo thorax. Under ultrasound guidance, the largest pocket of fluid was localized in the left low er chest. This region was cleansed and draped in the usual sterile fashion. Lidocaine was us ed for local anesthesia. A small skin tana was made. Using a thoracentesis needle and trocar system, the pleural space was accessed. There was return of clear yellow. Subsequently, 130 0 mL of the fluid was aspirated and sent to the laboratory. The patient tolerated the proced ure well. IMPRESSION - Successful ultrasound-guided thoracentesis. Dictated and Signed by: Arie Nunez MD Electronically signed: 05/22/2019 3:29 PM Vitals Ranges: Temp: [35.9 C (96.6 F)-36.5 C (97.7 F)] 36.3 C (97.4 F) Pulse: [52-62] 62 Resp: [16-18] 16 BP: (152-185)/(50-75) 172/75 Vitals: Temp: 36.3 C (97.4 F) BP: 172/75 Pulse: 62 Resp: 16 SpO2: 93 % SpO2 93 % on room air at flow rate 0.5L/min Nroa Christina MD 05/23/2019 15:20 [facility] documented in this enco unter Plan of Treatment + + +--------+ + + | Name | Type | Priori | Associated Diagnoses | Order Schedule | | | | ty | | | + + +--------+ + + | Ambulatory referral | Outpatient | Routin | ESRD (end stage | Ordered: 05/25/2019 | | to Physical Therapy | Referral | e | renal disease) on | | | | | | dialysis (HCC) | | | | | | Essential | | | | | | hypertension Type 2 | | | | | | diabetes mellitus | | | | | | with stage 4 chronic | | | | | | kidney disease, | | | | | | with long-term | | | | | | current use of | | | | | | insulin (HCC) | | + + +--------+ + + | Ambulatory referral | Outpatient | Routin | ESRD (end stage | Ordered: 05/25/2019 | | to Occupational | Referral | e | renal disease) on | | | Therapy | | | dialysis (HCC) | | | | | | Essential | | | | | | hypertension Type 2 | | | | | | diabetes mellitus | | | | | | with stage 4 chronic | | | | | | kidney disease, | | | | | | with long-term | | | | | | current use of | | | | | | insulin (HCC) | | + + +--------+ + + | Amb Referral to | Outpatient | Routin | ESRD (end stage | Ordered: 05/25/2019 | | Infusion | Referral | e | renal disease) on | | | | | | dialysis (HCC) | | + + +--------+ + [...] documented in this encounter Results POC Glucose (05/25/2019 12:15 PM PDT) + +---------+ + + + [...] [address] | [place] | [phone] | | [facility] | | [address] | | | - LABORATORY | | | | + + + + + POC Glucose (05/25/2019 7:38 AM PDT) + +-------+ + + + | Component | Value | Ref Range | Performed | Pathologist | | | | | At | Signature | + +-------+ + + + | Glucose, | 102 | 70 - 109 mg/dL | [facility] [...] [address] | [place] | [phone] | | [facility] | | [address] | | | - LABORATORY | | | | + + + + + Renal Function Panel (05/25/2019 6:30 AM PDT) + + + + + [...] 21 | 9 - 23 mg/dL | [facility] | | | | | [facility] | | [facility] | [facility] | | | | | | CENTER - | | | | | | LABORATORY | | + + + + + + | Creatinine | 4.14 (H) | 0.55 - 1.02 | [facility] | | | | | mg/dL | [facility] | | | | | | MEDICAL | | | | | | CENTER - | | | | | | LABORATORY | | + + + + + + | eGFR if not | 11 (L)Comment: | >=60 | [facility] | | | | GLOMERULAR FILTRATION | mL/min/1.73m2 | [facility] | | | [employer] | RATE,ESTIMATED | | MEDICAL | | | | mL/min/1.72a2Jdyo than | | CENTER - | | [...] [address] | [place] | [phone] | | [facility] | | [address] | | | - LABORATORY | | [...] [address] | [place] | [phone] | | [facility] | | [address] | | | - LABORATORY | | | | + + + + + POC Glucose (05/24/2019 8:25 PM PDT) + +---------+ + + + | Component | Value | Ref Range | Performed | Pathologist | | | | | At | Signature | + +---------+ + + + | Glucose, | 125 (H) | 70 - 109 mg/dL | [...] [address] | [place] | [phone] | | [facility] | | [address] | | | - LABORATORY | | | | + + + + + POC Glucose (05/24/2019 5:41 PM PDT) + +---------+ + + + [...] | [facility] | [address] | [place] | [phone] | | [facility] | | [address] | | | - LABORATORY | | | | + + + + + POC Glucose (05/24/2019 11:45 AM PDT) + +---------+ + + + [...] ST. | [address] | [place], [place] | [phone] | | [facility] | | [address] | | | - LABORATORY | | | | + + + + + Renal Function Panel (05/24/2019 6:54 AM PDT) + + + + + [...] + + + + | Cl | 100 | 98 - 107 mmol/L | [facility] | | | | | | MEDICAL | | | | | | CENTER - | | | | | | LABORATORY | | + + + + + + | CO2 | 24 | 20 - 31 mmol/L | [facility] [...] + + + + | Glucose | 75 | 60 - 106 mg/dL | [facility] | | | | | | MEDICAL | | | | | | CENTER - | | | | | | LABORATORY | | + + + + + + | BUN | 40 (H) | 9 - 23 mg/dL | [facility] | | [facility] | [facility] | | | | | | MEDICAL | | | | | | CENTER - | | | | | | LABORATORY | | + + + + + + | Creatinine | 6.78 (H) | 0.55 - 1.02 | [facility] | | | | | mg/dL | [facility] | | | | | | MEDICAL | | | | | | CENTER - | | | | | | LABORATORY | | + + + + + + | eGFR if not | 6 (L)Comment: GLOMERULAR | >=60 | [facility] | | | | FILTRATION | mL/min/1.73m2 | [facility] | | | [employer] | RATE,ESTIMATED | | MEDICAL | | | | mL/min/1.38z3Vekp than | | CENTER - | | [...] + | Calcium | 8.2 (L) | 8.7 - 10.4 | [facility] | | | | | mg/dL | [facility] | | | | | | [...] + + + + | Phosphorus | 8.1 (HH)Comment: | 2.4 - 5.1 mg/dL | [facility] | | | | Critical Result called | | [facility] | | | | to and read back by Jose L | | MEDICAL | | | | LISA Ramos on 05/24/2019 | | CENTER - | | | | at 7:29 by Lilliana | | LABORATORY | | | | Rajni [employer]. | | | | + + + + + + | BUN/Creatin | 5.9 | | [facility] | | | ine [...] ST. | [address] | [place], [place] | [phone] | | [facility] | | [address] | | | - LABORATORY | | | | + + + + + CBC with Differential (05/24/2019 6:54 AM PDT) + + + + + [...] | | | Granulocyte | | | [facility] | | | s | | | [...] | Immature | | K/uL | [facility] | | | Granulocyte | | | [...] + | [facility] | [address] | [place] | [phone] | | [facility] | | [address] | | | - LABORATORY | | | | + + + + + POC Glucose (05/23/2019 9:45 PM PDT) + +---------+ + + + [...] | [address] | [place] | [phone] | | [facility] | | [address] | | | - LABORATORY | | | | + + + + + POC Glucose (05/23/2019 5:32 PM PDT) + +-------+ + + + | Component | Value | Ref Range | Performed | Pathologist | | | | | At | Signature | + +-------+ + + + | Glucose, | 73 | 70 - 109 mg/dL | [facility] [...] [address] | [place] | [phone] | | [facility] | | [address] | | | - LABORATORY | | [...] + | Anjum Jordan Results In - 05/23/2019 6:36 PM PDT [...] | + +---------+ + + POC Glucose (05/23/2019 12:05 PM PDT) + +-------+ + + + | Component | Value | Ref Range | Performed | Pathologist | | | | | At | Signature | + +-------+ + + + | Glucose, | 82 | 70 - 109 mg/dL | [facility] [...] | [address] | [place] | [phone] | | [facility] | | [address] | | | - LABORATORY | | | | + + + + + POC Glucose (05/23/2019 6:39 AM PDT) + +-------+ + + + | Component | Value | Ref Range | Performed | Pathologist | | | | | At | Signature | + +-------+ + + + | Glucose, | 77 | 70 - 109 mg/dL | [facility] [...] [address] | [place] | [phone] | | [facility] | | [address] | | | - LABORATORY | | | | + + + + + Renal Function Panel (05/23/2019 5:10 AM PDT) + + + + + + | Component | Value | Ref Range | Performed | Pathologist | | | | | At | Signature | + + + + + + | Na | 133 (L) | 136 - 145 | [facility] [...] | | | | mmol/L | [facility] | | | | | | MEDICAL | | | | | | CENTER - | | | | | | LABORATORY | | + + + + + + | Cl | 98 | 98 - 107 mmol/L | [facility] [...] + + + + | Glucose | 73 | 60 - 106 mg/dL | [facility] | | | | | | [facility] | | | | | | MEDICAL | | | | | | CENTER - | | | | | | LABORATORY | | + + + + + + | BUN | 35 (H) | 9 - 23 mg/dL | [facility] | | | | | | [facility] | | | | | | MEDICAL | | | | | | CENTER - | | | | | | LABORATORY | | + + + + + + | Creatinine | 5.83 (H) | 0.55 - 1.02 | [facility] | | | | | mg/dL | [facility] | | | | | | MEDICAL | | | | | | CENTER - | | | | | | LABORATORY | | + + + + + + | eGFR if not | 7 (L)Comment: GLOMERULAR | >=60 | [facility] | | | | FILTRATION | mL/min/1.73m2 | [facility] | | | [employer] | RATE,ESTIMATED | | MEDICAL | | | | mL/min/1.05m7Jydu than | | CENTER - | | [...] + | Calcium | 8.2 (L) | 8.7 - 10.4 | [facility] [...] + + + + | Phosphorus | 8.0 (HH)Comment: | 2.4 - 5.1 mg/dL | [facility] | | | | Critical Result called | | [facility] | | | | to and read back by Remedios | | MEDICAL | | | | LISA Angelo on | | CENTER - | | | | 05/23/2019 at 6:06 by | | LABORATORY | | | | Mat Washburn | | | | + + + + + + | BUN/Creatin | 6.0 | | [facility] | | | ine Ratio | | | [facility] | | | | | | MEDICAL [...] + | [facility] | [address] | [place] | [phone] | | [facility] | | [address] | | | - LABORATORY | | | | + + + + + CBC with Differential (05/23/2019 5:10 AM PDT) + + + + + + | Component | Value | Ref Range | Performed | Pathologist | | | | | At | Signature | + + + + + + | WBC | 4.8 | 4.0 - 11.0 K/uL | [facility] | | | | | | [facility] | | | | | | MEDICAL | | | | | | CENTER - | | | | | | LABORATORY | | + + + + + + | RBC | 2.69 (L) | 3.70 - 5.20 | [facility] [...] + + + + | MCV | 98.5 | 83.0 - 101.0 fL | [facility] | | | | | [facility] | | | | | | MEDICAL | | | | | | CENTER - | | | | | | LABORATORY | | + + + + + + | MCH | 32.0 | 28.0 - 35.0 pg | [facility] [...] + + + + | RDW-SD | 48.9 (H) | 35.1 - 46.3 fL | [facility] | | | | | | [facility] | | | | | | MEDICAL | | | | | | CENTER - | | | | | | LABORATORY | | + + + + + + | Platelet | 230 | 140 - 440 K/uL | [facility] | | | Count | | | [facility] | | | | | | MEDICAL | | | | | | CENTER - | | | | | | LABORATORY | | + + + + + + | MPV | 9.6 | 6.5 - 12.4 fL | [facility] | | | | | | [facility] | | | | | | MEDICAL | | | | | | CENTER - | | | | | | LABORATORY | | + + + + + + | % | 68.5 | 45.0 - 82.0 % | [facility] | | | Neutrophils | | | [facility] | | | | | | MEDICAL | | | | | | CENTER - | | | | | | LABORATORY | | + + + + + + | % | 17.0 (L) | 20.0 - 45.0 % | [facility] | | | Lymphocytes | | | [facility] | | | | | | MEDICAL | | | | | | CENTER - | | | | | | LABORATORY | | + + + + + + | % Monocytes | 6.9 | 4.0 - 12.0 % | [facility] | | | | | | [facility] | | | | | | MEDICAL | | | | | | CENTER - | | | | | | LABORATORY | | + + + + + + | % | 6.4 (H) | 0.0 - 5.0 % | [...] + + + + | Absolute | 3.29 | 1.80 - 8.50 | [facility] | | | Neutrophils | | K/uL | [facility] | | | | | | MEDICAL | | | | | | CENTER - | | | | | | LABORATORY | | + + + + + + | Absolute | 0.82 | 0.60 - 3.20 | [facility] | | | Lymphocytes | | K/uL | [facility] | | | | | | MEDICAL | | | | | | CENTER - | | | | | | LABORATORY | | + + + + + + | Absolute | 0.33 | 0.00 - 1.00 | [facility] | | | Monocytes | | K/uL | [facility] | | | | | | MEDICAL | | | | | | CENTER - | | | | | | LABORATORY | | + + + + + + | Absolute | 0.31 | 0.00 - 0.40 | [facility] | [...] | Immature | | K/uL | [facility] | | | Granulocyte | | | [...] [address] | [place] | [phone] | | [facility] | | [address] | | | - LABORATORY | | | | + + + + + POC Glucose (05/22/2019 8:24 PM PDT) + +---------+ + + + | Component | Value | Ref Range | Performed | Pathologist | | | | | At | Signature | + +---------+ + + + | Glucose, | 138 (H) | 70 - 109 mg/dL | [...] | [address] | [place] | [phone] | | [facility] | | [address] | | | - LABORATORY | | | | + + + + + POC Glucose (05/22/2019 5:12 PM PDT) + +-------+ + + + | Component | Value | Ref Range | Performed | Pathologist | | | | | At | Signature | + +-------+ + + + | Glucose, | 72 | 70 - 109 mg/dL | [facility] [...] [address] | [place] | [phone] | | [facility] | | [address] | | | - LABORATORY | | [...] ST. | [address] | [place] | [phone] | | [facility] | | [address] | | | - LABORATORY | | [...] + + | Performed at: 02 - [facility] [address] [facility], | REFERENCE LAB | | [place], [place] [id number] Health Education Assistant: Violette Mcconnell MD, Phone: | [facility] | | [phone] | | + + + + + + + + | Performing | Address | City/State/Zipcode | Phone Number | | Organization | | | | + + + + + | REFERENCE LAB | [address] | [place] [address] | [phone] | | [facility] | [facility] | | | + + + + [...] + + | Performed at: 01 - [facility] [place] [address], | REFERENCE LAB | | [place], [place] [id number] Health Education Assistant: Ernie Lee MD, Phone: | [facility] | | [phone] | | + + + + + + + + | Performing | Address | City/State/Zipcode | Phone Number | | Organization | | | | + + + + + | REFERENCE LAB | [address] | [place] [address] | [phone] | | [facility] | [address] | | | + + + + [...] | [address] | [place] | [phone] | | [facility] | | [address] | | | - LABORATORY | | | | + + + + + Culture, Body Fluid, Aerobe (05/22/2019 3:09 PM PDT) + + + + + + | Component | Value | Ref Range | Performed | Pathologist | | | | | At | Signature | + + + + + + | Culture | No Growth | | [facility] | | | | | [...] + | [facility] | [address] | [place] | [phone] | | [facility] | | [address] | | | - LABORATORY | | [...] + + | Performed at: 01 - [facility] [address], | REFERENCE LAB | | [place], [place] [id number] Health Education Assistant: Ernie Lee MD, Phone: | [facility] | | [phone] Performed at: 02 - [address] | | | [place] [id number] Health Education Assistant: Violette Mcconnell MD, | | | Phone: [phone] | | + + + + + + + + | Performing | Address | City/State/Zipcode | Phone Number | | Organization | | | | + + + + + | REFERENCE LAB | [address] | [place] [address] | [phone] | | [facility] | Drive [...] Protein, BF | 3.1 | g/dL | [facility] | | | | [...] + | [facility] | [address] | [place] | [phone] | | [facility] | | [address] | | | - LABORATORY | | [...] + | [facility] | [address] | [place] | [phone] | | [facility] | | [address] | | | - LABORATORY | | | | + + + + + POC Glucose (05/22/2019 11:23 AM PDT) + +-------+ + + + [...] [address] | [place] | [phone] | | [facility] | | [address] | | | - LABORATORY | | | | + + + + + POC Glucose (05/22/2019 6:46 AM PDT) + +-------+ + + + | Component | Value | Ref Range | Performed | Pathologist | | | | | At | Signature | + +-------+ + + + | Glucose, | 87 | 70 - 109 mg/dL | [facility] [...] [address] | [place] | [phone] | | [facility] | | [address] | | | - LABORATORY | | | | + + + + + Renal Function Panel (05/22/2019 3:12 AM PDT) + + + + + + | Component | Value | Ref Range | Performed | Pathologist | | | | | At | Signature | + + + + + + | Na | 132 (L) | 136 - 145 | [facility] | | | | | mmol/L | [facility] | | | | | | MEDICAL | | | | | | CENTER - | | | | | | LABORATORY | | + + + + + + | K | 4.3 | 3.4 - 5.1 | [facility] | [...] + + | CO2 | 28 | 20 - 31 mmol/L | [facility] [...] + + + + | Glucose | 82 | 60 - 106 mg/dL | [facility] | | | | | | [facility] | | | | | | MEDICAL | | | | | | CENTER - | | | | | | LABORATORY | | + + + + + + | BUN | 29 (H) | 9 - 23 mg/dL | [facility] | | | | | | [facility] | | | | | | MEDICAL | | | | | | CENTER - | | | | | | LABORATORY | | + + + + + + | Creatinine | 4.82 (H) | 0.55 - 1.02 | [facility] | | | | | mg/dL | [facility] | | | | | | MEDICAL | | | | | | CENTER - | | | | | | LABORATORY | | + + + + + + | eGFR if not | 9 (L)Comment: GLOMERULAR | >=60 | [facility] | | | | FILTRATION | mL/min/1.73m2 | [facility] | | | [employer] | RATE,ESTIMATED | | MEDICAL | | | | mL/min/1.86p3Nuvf than | | CENTER - | | [...] + + | Calcium | 8.7 | 8.7 - 10.4 | [facility] | | | | | mg/dL | [facility] | | | | | | MEDICAL | | | | | | CENTER - | | | | | | LABORATORY | | + + + + + + | Albumin | 3.3 | 3.2 - 4.8 g/dL | [facility] | | | | | | [facility] | | | | | | MEDICAL | | | | | | CENTER - | | | | | | LABORATORY | | + + + + + + | Phosphorus | 6.6 (H) | 2.4 - 5.1 mg/dL | [facility] | | | [...] [address] | [place] | [phone] | | [facility] | | [address] | | | - LABORATORY | | | | + + + + + CBC with Differential (05/22/2019 3:12 AM PDT) + + + + + + | Component | Value | Ref Range | Performed | Pathologist | | | | | At | Signature | + + + + + + | WBC | 5.6 | 4.0 - 11.0 K/uL | [facility] | | | | | | [facility] | | | | | | MEDICAL | | | | | | CENTER - | | | | | | LABORATORY | | + + + + + + | RBC | 2.78 (L) | 3.70 - 5.20 | [facility] [...] + + + + | Hematocrit | 27.6 (L) | 34.0 - 47.0 % | [facility] | | | | | | [facility] | | | | | | MEDICAL | | | | | | CENTER - | | | | | | LABORATORY | | + + + + + + | MCV | 99.3 | 83.0 - 101.0 fL | [facility] | | | | | | [facility] | | | | | | MEDICAL | | | | | | CENTER - | | | | | | LABORATORY | | + + + + + + | MCH | 32.0 | 28.0 - 35.0 pg | [facility] | | | | | | [facility] | | | | | | MEDICAL | | | | | | CENTER - | | | | | | LABORATORY | | + + + + + + | MCHC | 32.2 | 32.0 - 36.0 | [facility] | | | | | g/dL | [facility] | | | | | | MEDICAL | | | | | | CENTER - | | | | | | LABORATORY | | + + + + + + | RDW-CV | 13.8 | <15.0 % | [facility] | | | | | | [facility] | | [facility] | | | MEDICAL | | | | | | CENTER - | | | | | | LABORATORY | | + + + + + + | RDW-SD | 50.0 (H) | 35.1 - 46.3 fL | [facility] | | | | | | [facility] | | | | | | MEDICAL | | | | | | CENTER - | | | | | | LABORATORY | | + + + + + + | Platelet | 256 | 140 - 440 K/uL | [facility] | | | Count | | | [facility] | | | | | | MEDICAL | | | | | | CENTER - | | | | | | LABORATORY | | + + + + + + | MPV | 9.4 | 6.5 - 12.4 fL | [facility] | | | | | | [facility] | | | | | | MEDICAL | | | | | | CENTER - | | | | | | LABORATORY | | + + + + + + | % | 70.6 | 45.0 - 82.0 % | [facility] | | | Neutrophils | | | [facility] | | | | | | MEDICAL | | | | | | CENTER - | | | | | | LABORATORY | | + + + + + + | % | 15.7 (L) | 20.0 - 45.0 % | [facility] | | | Lymphocytes | | | [facility] | | | | | | MEDICAL | | | | | | CENTER - | | | | | | LABORATORY | | + + + + + + | % Monocytes | 5.7 | 4.0 - 12.0 % | [facility] | | | | | | [facility] | | | | | | MEDICAL | | | | | | CENTER - | | | | | | LABORATORY | | + + + + + + | % | 6.9 (H) | 0.0 - 5.0 % | [...] [facility] | | | | | | [facility] | | [...] + + + + | Absolute | 3.97 | 1.80 - 8.50 | [facility] | [...] | Absolute | 0.32 | 0.00 - 1.00 | [facility] | | | Monocytes | | K/uL | [facility] | | | | | | MEDICAL | | | | | | CENTER - | | | | | | LABORATORY | | + + + + + + | Absolute | 0.39 | 0.00 - 0.40 | [facility] | [...] | | | | WBCs | [facility] | | | | [...] [address] | [place] | [phone] | | [facility] | | [address] | | | - LABORATORY | | | | + + + + + POC Glucose (05/21/2019 8:16 PM PDT) + +---------+ + + + [...] | [address] | [place] | [phone] | | [facility] | | [address] | | | - LABORATORY | | | | + + + + + POC Glucose (05/21/2019 4:57 PM PDT) + +-------+ + + + | Component | Value | Ref Range | Performed | Pathologist | | | | | At | Signature | + +-------+ + + + | Glucose, | 84 | 70 - 109 mg/dL | [facility] [...] [address] | [place] | [phone] | | [facility] | | [address] | | | - LABORATORY | | | | + + + + + POC Glucose (05/21/2019 12:12 PM PDT) + +-------+ + + + | Component | Value | Ref Range | Performed | Pathologist | | | | | At | Signature | + +-------+ + + + | Glucose, | 90 | 70 - 109 mg/dL | [facility] [...] | [facility] | [address] | [place] | [phone] | | [facility] | | [address] | | | - LABORATORY | | | | + + + + + POC Glucose (05/21/2019 6:34 AM PDT) + +-------+ + + + | Component | Value | Ref Range | Performed | Pathologist | | | | | At | Signature | + +-------+ + + + | Glucose, | 104 | 70 - 109 mg/dL | [facility] [...] ST. | [address] | [place] | [phone] | | [facility] | | [address] | | | - LABORATORY | | | | + + + + + Sedimentation Rate (05/21/2019 4:15 AM PDT) + +--------+ + + + | Component | Value | Ref Range | Performed | Pathologist | | | | | At | Signature | + +--------+ + + + | ESR | 48 (H) | <30 mm/hr | [facility] | | | | | [...] [address] | [place] | [phone] | | [facility] | | [address] | | | - LABORATORY | | | | + + + + + C-Reactive Protein (05/21/2019 4:15 AM PDT) + + + + + + | Component | Value | Ref Range | Performed | Pathologist | | | | | At | Signature | + + + + + + | CRP | 51.80 (H) | <10.00 mg/L | [facility] | | | | [...] | [address] | [place] | [phone] | | [facility] | | [address] | | | - LABORATORY | | | | + + + + + Renal Function Panel (05/21/2019 4:15 AM PDT) + + + + + + | Component | Value | Ref Range | Performed | Pathologist | | | | | At | Signature | + + + + + + | Na | 133 (L) | 136 - 145 | [facility] [...] + + | Glucose | 105 | 60 - 106 mg/dL | [facility] | | | | | | [facility] | | | | | | MEDICAL | | | | | | CENTER - | | | | | | LABORATORY | | + + + + + + | BUN | 48 (H) | 9 - 23 mg/dL | [facility] | | | | | | [facility] | | | | | | MEDICAL | | | | | | CENTER - | | | | | | LABORATORY | | + + + + + + | Creatinine | 7.26 (H) | 0.55 - 1.02 | [facility] [...] | | MEDICAL | | | | mL/min/1.76f2Narg than | | CENTER - | | [...] 8.6 (L) | 8.7 - 10.4 | [facility] | | | | | mg/dL | [facility] | | | | | | MEDICAL | | | | | | CENTER - | | | | | | LABORATORY | | + + + + + + | Albumin | 3.1 (L) | 3.2 - 4.8 g/dL | [facility] | | | | | [facility] | | | | | | [facility] | | | | | | C[facility] - | | | | | | LABORATORY | | + + + + + + | Phosphorus | 9.0 ()Comment: | 2.4 - 5.1 mg/dL | [facility] | | | | Critical Result called | | [facility] | | | | to and read back by | | MEDICAL | | | | Nan Jackson RN | | CENTER - | | | | on 05/21/2019 at 5:16 by | | LABORATORY | | | | Mat Kerr. | | | | + + + + + + | BUN/Creatin | 6.6 | | [facility] | | | ine [...] + | [facility] | [address] | [place] | [phone] | | [facility] | | [address] | | | - LABORATORY | | [...] [address] | [place] | [phone] | | [facility] | | [address] | | | - LABORATORY | | [...] | | | Oral Anticoagulation | | [facility] | | | | Range: 2.0 [...] | [address] | [place] | [phone] | | [facility] | | [address] | | | - LABORATORY | | | | + + + + + Magnesium (05/21/2019 4:15 AM PDT) + +-------+ + + + | Component | Value | Ref Range | Performed | Pathologist | | | | | At | Signature | + +-------+ + + + | Magnesium | 2.3 | 1.6 - 2.6 mg/dL | [facility] [...] | [address] | [place] | [phone] | | [facility] | | [address] | | | - LABORATORY | | | | + + + + + CBC with Differential (05/21/2019 4:15 AM PDT) + + + + + + | Component | Value | Ref Range | Performed | Pathologist | | | | | At | Signature | + + + + + + | WBC | 6.9 | 4.0 - 11.0 K/uL | [facility] | | | [facility] | | | | | | CENTER - | | | | | | LABORATORY | | + + + + + + | RBC | 2.74 (L) | 3.70 - 5.20 | [facility] | | | | | M/uL | [facility] | [...] + + + + | MCV | 99.3 | 83.0 - 101.0 fL | [facility] | [facility] | | | | MEDICAL | | | | | | CENTER - | | | | | | LABORATORY | | + + + + + + | MCH | 32.5 | 28.0 - 35.0 pg | [facility] | [facility] | [facility] | | [facility] | | | | | | CENTER - | | | | | | LABORATORY | | + + + + + + | MCHC | 32.7 | 32.0 - 36.0 | [facility] | [...] + + + + | RDW-SD | 51.0 (H) | 35.1 - 46.3 fL | [facility] | [facility] | | | | MEDICAL | | | | | | CENTER - | | | | | | LABORATORY | | + + + + + + | Platelet | 256 | 140 - 440 K/uL | [facility] [...] + + + + | % | 72.5 | 45.0 - 82.0 % | [facility] | | | Neutrophils | | | [facility] | | | | | | MEDICAL | | | | | | CENTER - | | | | | | LABORATORY | | + + + + + + | % | 15.8 (L) | 20.0 - 45.0 % | [facility] | | | Lymphocytes | | | [facility] | | | | | | MEDICAL | | | | | | CENTER - | | | | | | LABORATORY | | + + + + + + | % Monocytes | 5.1 | 4.0 - 12.0 % | [facility] | [facility] | | | | | | MEDICAL | | | | | | CENTER - | | | | | | LABORATORY | | + + + + + + | % | 5.6 (H) | 0.0 - 5.0 % | [...] + + + + | Absolute | 5.02 | 1.80 - 8.50 | [facility] | | | Neutrophils | | K/uL | [facility] | | | | | | MEDICAL | | | | | | CENTER - | | | | | | LABORATORY | | + + + + + + | Absolute | 1.09 | 0.60 - 3.20 | [facility] | | | Lymphocytes | | K/uL | [facility] | | | | | | MEDICAL | | | | | | CENTER - | | | | | | LABORATORY | | + + + + + + | Absolute | 0.35 | 0.00 - 1.00 | [facility] | | | Monocytes | | K/uL | [facility] | | | | | | MEDICAL | | | | | | CENTER - | | | | | | LABORATORY | | + + + + + + | Absolute | 0.39 | 0.00 - 0.40 | [facility] | [...] | Immature | | K/uL | [facility] | | | Granulocyte | | | MEDICAL | | | s | | | CENTER - | | | | | | LABORATORY | | + + + + + + | % nRBC | 0 | 0 - 2 per 100 | [facility] | | | | | WBCs | [facility] | | | | [...] | [address] | [place] | [phone] | | [facility] | | [address] | | | - LABORATORY | | [...] with imaging of March | | | 11. Moderate to severe disc space narrowing is [...] | this study [facility] | | [...] of this study were reported by the [facility] | | radiologist on May 21, [...] PHYSICIAN: Gopi Muñoz MD PATIENT NAME: | [place] [facility] | | MAYKEL CAMPOSEulalia Jimenez GENDER: Mami : 1945 | [place] | | SPECIMEN(S): [...] preparation was | | | performed by [facility] | | | [place] [address] and [facility] [address] | | | [place] [address]. Professional interpretation was performed | | | by [facility] - [address] | | | [place] [address] (Customer Support Associate: Alen Simpson, | | | .; [facility]#:[id number]).8 Diagnostician: Darcie López M.S., | | | [facility] Special Tax Auditor Diagnostician: Alen Kearney | | | Calvin HOLDEN Pathologist Electronically Signed 05/23/2019 | | + + + + +---------+ + + | Performing | Address | City/State/Zipcode | Phone Number | | Organization | | | | + +---------+ + + | [place] [facility] | | | | | [place] | | | | + +---------+ + + Sedimentation Rate (05/20/2019 10:48 PM PDT) + +--------+ + + + | Component | Value | Ref Range | Performed | Pathologist | | | | | At | Signature | + +--------+ + + + | ESR | 52 (H) | <30 mm/hr | [facility] | | [address] | [place] | [phone] | | [facility] | | [address] | | | - LABORATORY | | | | + + + + + XR Chest AP Portable (05/20/2019 [...] | + +---------+ + + POC Glucose (05/20/2019 9:13 PM PDT) + +---------+ + + + | Component | Value | Ref Range | Performed | Pathologist | | | | | At | Signature | + +---------+ + + + | Glucose, | 116 (H) | 70 - 109 mg/dL | [...] + | [facility] | [address] | [place] | [phone] | | [facility] | | [address] | | | - LABORATORY | | | | + + + + + C-Reactive Protein (05/20/2019 9:11 PM PDT) + + + + + + | Component | Value | Ref Range | Performed | Pathologist | | | | | At | Signature | + + + + + + | CRP | 51.20 (H) | <10.00 mg/L | [facility] | | | | | | [facility] | | | | | | [...] + | [facility] | [address] | [place], [place] | [phone] | | [facility] | | [address] | | | - LABORATORY | | | | + + + + + Vitamin B-12 (05/20/2019 9:11 PM PDT) + + + + + + | Component | Value | Ref Range | Performed | Pathologist | | | | | At | Signature | + + + + + + | VITAMIN | 564Comment: DEFICIENT: | 156 - 672 pg/mL | [facility] | | | B-12 | <145 | | [facility] | | | | pg/mLINDETERMINATE: | | [...] [address] | [place] | [phone] | | [facility] | | [address] | | | - LABORATORY | | [...] | | | | uIU/mL | [facility] | | [...] [address] | [place] | [phone] | | [facility] | | [address] | | | - LABORATORY | | [...] | | | Screen | | | [facility] | | | | | | [...] St | [place] | | | [facility] | | [address] | | | - BLOOD BANK | [...] | | | | | | [employer] | | | | | [...] ST. | [address] | [place], [place] | [phone] | | [facility] | | [address] | | | - LABORATORY | | [...] + | [facility] | [address] | [place] | [phone] | | [facility] | | [address] | | | - LABORATORY | | | | + + + + + Magnesium (05/20/2019 8:51 PM PDT) + +-------+ + + + | Component | Value | Ref Range | Performed | Pathologist | | | | | At | Signature | + +-------+ + + + | Magnesium | 2.2 | 1.6 - 2.6 mg/dL | [facility] | | | | | | [facility] | | [...] [address] | [place] | [phone] | | [facility] | | [address] | | | - LABORATORY | | [...] + | [facility] | [address] | [place] | [phone] | | [facility] | | [address] | | | - LABORATORY | | [...] | | Total | | | [facility] | | | | | | MEDICAL | | | | | | CENTER - | | | | | | LABORATORY | | + +-------+ + + + | Total | 6.8 | 5.7 - 8.2 g/dL | [facility] | | | Protein | | | [facility] | | [...] + | [facility] | [address] | [place] | [phone] | | [facility] | | [address] | | | - LABORATORY | | [...] | | | FILTRATION | mL/min/1.73m2 | . [facility] | | | [facility] [facility] [employer] [facility] | RATE,ESTIMATED | | MEDICAL | | | | mL/min/1.52y8Zqgm than | | CENTER - | | [...] | | | | | mg/dL | . [facility] | | | | [...] [address] | [place] | [phone] | | [facility] | | [address] | | | - LABORATORY | | [...] | [address] | [place] | [phone] | | [facility] | | [address] | | | - LABORATORY | | | | + + + + + Culture, MRSA (05/20/2019 8:22 PM PDT) + + + + + + | Component | Value | Ref Range | Performed | Pathologist | | | | | At | Signature | + + + + + + | Culture | Negative for MRSA by | | [facility] | | | | chromogenic agar method. | | [facility] | | | | | | MEDICAL | | | | | | CENTER - | | | | | | LABORATORY | | + + + + + + | Culture | 2+ Coagulase positive | | [facility] | | | | Staphylococcus | | [facility] | | | [...] [address] | [place] | [phone] | | [facility] | | [address] | | | - LABORATORY | | [...] PRN, PRN | | | hypotension., Starting 05/21/19 | | | at 0726, For BP < 90 mmHg on | | | NxStage., Dialysis | | + +---+ | | | + +---+ + +-------+ +------+---+---+ | amLODIPine (NORVASC) tablet 5 | Given | 05/25/20 | 5 mg | | | | mg 5 mg, Oral, 2 TIMES DAILY, | | 19 9:42 | | | | | First dose (after last reorder) | | AM PDT | | | | | on 05/21/19 at 2100 | | | | | | + +-------+ +------+---+---+ +-------+ +------+---+---+ | Given | 05/24/20 | 5 mg | | | | | 19 10:55 | | | | | | PM PDT | | | | +-------+ +------+---+---+ | Given | 05/24/20 | 5 mg | | | | | 19 9:04 | | | | | | AM PDT | | | | +-------+ +------+---+---+ +---+---+ | | | +---+---+ + +-------+ +-------+---+---+ | aspirin EC tablet 81 mg 81 mg, | Given | 05/25/20 | 81 mg | | | | Oral, DAILY, First dose on Sun | | 19 9:42 | | | | | 05/21/19 at 0900, Do not cut or | | AM PDT | | | | | crush., | | | | | | + +-------+ +-------+---+---+ +-------+ +-------+---+---+ | Given | 05/24/20 | 81 mg | | | | | 19 9:04 | | | | | | AM PDT | | | | +-------+ +-------+---+---+ | Given | 05/23/20 | 81 mg | | | | | 19 8:35 | | | | | | AM PDT | | | | +-------+ +-------+---+---+ +---+---+ | | | +---+---+ + +-------+ +--------+---+---+ | calcium acetate (PHOSLO) | Given | 05/25/20 | 667 mg | | | | capsule 667 mg 667 mg, Oral, 3 | | 19 1:15 | | | | | TIMES DAILY WITH MEALS, First | | PM PDT | | | | | dose (after last modification) on | | | | | | | 05/20/19 at 2230 | | | | | | + +-------+ +--------+---+---+ +-------+ +--------+---+---+ | Given | 05/25/20 | 667 mg | | | | | 19 9:41 | | | | | | AM PDT | | | | +-------+ +--------+---+---+ | Given | 05/24/20 | 667 mg | | | | | 19 9:09 | | | | | | AM PDT | | | | +-------+ +--------+---+---+ +---+---+ | | | +---+---+ + +-------+ +--------+---+---+ | cholecalciferol (VITAMIN D-3) | Given | 05/25/20 | 2,000 | | | | tablet 2,000 Units 2,000 Units, | | 19 9:42 | Units | | | | Oral, DAILY, First dose on Sun | | AM PDT | | | | | 05/21/19 at 0900 | | | | | | + +-------+ +--------+---+---+ +-------+ +--------+---+---+ | Given | 05/24/20 | 2,000 | | | | | 19 9:04 | Units | | | | | AM PDT | | | | +-------+ +--------+---+---+ | Given | 05/23/20 | 2,000 | | | | | 19 8:35 | Units | | | | | AM PDT | | | | +-------+ +--------+---+---+ +---+---+ | | | +---+---+ + +---------+ +---------+---+ + | cloNIDine (CATAPRES) 0.1 mg/24 | Patch | 05/20/20 | 1 patch | | Deltoid- | | hr 1 patch 1 patch, Transdermal, | Applied | 19 9:14 | | | Right | | WEEKLY, First dose on 05/20/19 | | PM PDT | | | | | at 2100, Total of 0.3mg, | | | | | | + +---------+ +---------+---+ + +---+---+ | | | +---+---+ + +---------+ +---------+---+ + | cloNIDine (CATAPRES) 0.2 mg/24 | Patch | 05/20/20 | 1 patch | | Deltoid- | | hr 1 patch 1 patch, Transdermal, | Applied | 19 9:04 | | | Right | | WEEKLY, First dose on 05/20/19 | | PM PDT | | | | | at 2100 | | | | | | + +---------+ +---------+---+ + + +---+ | | | + +---+ | dextrose 10% (D10W) infusion | | | at 50 mL/hr, Intravenous, | | | CONTINUOUS PRN, hypoglycemia, | | | Starting 05/20/19 at 2040, | | | Start infusion if unable [...] | | | Low Blood Sugar, Starting Sat | | | 05/20/19 at 2039, For blood glucose | | | 50-69 mg/dl - give 12.5 g For | | | blood glucose less than 50 mg/dl | | | - give 25 g, | | + +---+ | | | + +---+ + +---------+ +--------+ +---+ | furosemide (LASIX) 240 mg in | New Bag | 05/25/20 | 240 mg | 74 mL/hr | | | sodium chloride 0.9% 50 mL IVPB | | 19 11:25 | | | | | 240 mg, Intravenous, Administer | | AM PDT | | | | | over 60 Minutes, 2 TIMES DAILY | | | | | | | 0800 & 1600, First dose on Sat | | | | | | | 05/20/19 at 2345, This is not an | | | | | | | error. Thanks., | | | | | | + +---------+ +--------+ +---+ +---------+ +--------+ +---+ | New Bag | 05/24/20 | 240 mg | 74 mL/hr | | | | 19 10:44 | | | | | | AM PDT | | | | +---------+ +--------+ +---+ | New Bag | 05/23/20 | 240 mg | 74 mL/hr | | | | 19 5:36 | | | | | | PM PDT | | | | +---------+ +--------+ +---+ +---+---+ | | | +---+---+ + +---------+ + +---------+---+ | heparin 100 Units/mL in sodium | New Bag | 05/24/20 | 400 | 4 mL/hr | | | chloride 0.9% 100 mL infusion | | 19 4:32 | Units/hr | | | | 400 Units/hr (4 mL/hr), at 4 | | PM PDT | | | | | mL/hr, Intravenous, DIALYSIS - | | | | | | | CONTINUOUS, Starting 05/24/19 | | | | | | | at 1600, For 1 day, While on | | | | | | | NxStage Tx., Dialysis | | | | | | + +---------+ + +---------+---+ +---+---+ | | | +---+---+ + +-------+ +--------+---+ + | heparin 5,000 units/mL | Given | 05/25/20 | 5,000 | | Abdomen- | | injection 5,000 Units 5,000 | | 19 9:42 | Units | | RLQ | | Units, Subcutaneous, EVERY 12 | | AM PDT | | | | | HOURS (2 times per day), First | | | | | | | dose (after last modification) on | | | | | | | 05/23/19 at 0900 | | | | | | + +-------+ +--------+---+ + +-------+ +--------+---+ + | Given | 05/24/20 | 5,000 | | Abdomen- | | | 19 10:55 | Units | | LLQ | | | PM PDT | | | | +-------+ +--------+---+ + | Given | 05/23/20 | 5,000 | | Abdomen- | | | 19 9:43 | Units | | LLQ | | | PM PDT | | | | +-------+ +--------+---+ + +---+---+ | | | +---+---+ + +-------+ +--------+---+---+ | HYDROmorphone (DILAUDID) | Given | 05/24/20 | 0.2 mg | | | | injection 0.2-0.4 mg 0.2-0.4 mg, | | 19 8:18 | | | | | Intravenous, EVERY 4 HOURS PRN, | | PM PDT | | | | | Severe Pain, Starting 05/24/19 | | | | | | | at 1855 | | | | | | + +-------+ +--------+---+---+ +-------+ +--------+---+---+ | Given | 05/24/20 | 0.2 mg | | | | | 19 7:13 | | | | | | PM PDT | | | | +-------+ +--------+---+---+ +---+---+ | | | +---+---+ + +-------+ +--------+---+---+ | labetalol (NORMODYNE) tablet | Given | 05/25/20 | 300 mg | | | | 300 mg 300 mg, Oral, 2 TIMES | | 19 9:42 | | | | | DAILY, First dose on 05/20/19 | | AM PDT | | | | | at 2100 | | | | | | + +-------+ +--------+---+---+ +-------+ +--------+---+---+ | Given | 05/24/20 | 300 mg | | | | | 19 10:53 | | | | | | PM PDT | | | | +-------+ +--------+---+---+ | Given | 05/24/20 | 300 mg | | | | | 19 9:03 | | | | | | AM PDT | | | | +-------+ +--------+---+---+ +---+---+ | | | +---+---+ + +-------+ +-------+---+---+ | labetalol (TRANDATE) 5 mg/mL | Given | 05/21/20 | 20 mg | | | | injection 20 mg 20 mg, | | 19 2:06 | | | | | Intravenous, EVERY 2 HOURS PRN, | | PM PDT | | | | | keep SBP under 180, Starting Sun | | | | | | | 05/21/19 at 1213, Keep SBP under | | | | | | | 180, | | | | | | + +-------+ +-------+---+---+ +-------+ +-------+---+---+ | Given | 05/21/20 | 20 mg | | | | | 19 12:21 | | | | | | PM PDT | | | | +-------+ +-------+---+---+ +---+---+ | | | +---+---+ + +-------+ +--------+---+---+ | levothyroxine (SYNTHROID) | Given | 05/25/20 | 75 mcg | | | | tablet 75 mcg 75 mcg, Oral, | | 19 6:32 | | | | | DAILY BEFORE BREAKFAST, First | | AM PDT | | | | | dose on 05/21/19 at 0730, Give | | | | | | | before breakfast., | | | | | | + +-------+ +--------+---+---+ +-------+ +--------+---+---+ | Given | 05/24/20 | 75 mcg | | | | | 19 6:54 | | | | | | AM PDT | | | | +-------+ +--------+---+---+ | Given | 05/23/20 | 75 mcg | | | | | 19 6:31 | | | | | | AM PDT | | | | +-------+ +--------+---+---+ +---+---+ | | | +---+---+ + +---------+ +---------+---+ + | lidocaine (LIDODERM) 5% patch 1 | Patch | 05/25/20 | 1 patch | | Back-Low | | patch 1 patch, Transdermal, | Applied | 19 9:42 | | | er | | DAILY, First dose on Wed05/24/19 | | AM PDT | | | Middle | | at 1915, Low back pain Apply for | | | | | | | 12 hours, then remove for 12 | | | | | | | hours., Time to remove patch: | | | | | | | 10:00 PM | | | | | | + +---------+ +---------+---+ + + + +---------+---+ + | Patch Applied | 05/24/20 | 1 patch | | Back-Low | | | 19 7:14 | | | er | | | PM PDT | | | Middle | + + +---------+---+ + +---+---+ | | | +---+---+ + +-------+ +--------+---+---+ | losartan (COZAAR) tablet 100 mg | Given | 05/25/20 | 100 mg | | | | 100 mg, Oral, DAILY, First dose | | 19 9:41 | | | | | (after last modification) on Sun | | AM PDT | | | | | 05/21/19 at 1830 | | | | | | + +-------+ +--------+---+---+ +-------+ +--------+---+---+ | Given | 09/11/20 | 100 mg | | | | | 19 9:04 | | | | | | AM PDT | | | | +-------+ +--------+---+---+ | Given | 05/23/20 | 100 mg | | | | | 19 8:35 | | | | | | AM PDT | | | | +-------+ +--------+---+---+ + +---+ | | | + +---+ | mannitol 25% injection 12.5 g | | | 12.5 g, Intravenous, Administer | | | over 30 Minutes, PRN, PRN | | | hypotension, Starting 05/21/19 | | | at 0726, For BP < 90 mmHg on | | | NxStage. Do not refrigerate. | | | Watch for precipitation. Use | | | 0.22, 1.2, or 5 micron in-line | | | filter for administration., | | | Dialysis | | + +---+ | | | + +---+ + +-------+ +------+---+---+ | melatonin tablet 3 mg 3 mg, | Given | 05/22/20 | 3 mg | | | | Oral, NIGHTLY PRN, Insomnia, | | 19 12:49 | | | | | Starting 05/21/19 at 2355 | | AM PDT | | | | + +-------+ +------+---+---+ +---+---+ | | | +---+---+ + +-------+ +---------+---+---+ | olopatadine (PATANOL) 0.1% | Given | 05/25/20 | 2 drops | | | | ophthalmic solution 1-2 drop 1-2 | | 19 11:15 | | | | | drop, Both Eyes, 2 TIMES DAILY, | | AM PDT | | | | | First dose on 05/20/19 at 2100 | | | | | | + +-------+ +---------+---+---+ +-------+ +--------+---+---+ | Given | 05/24/20 | 1 drop | | | | | 19 10:57 | | | | | | PM PDT | | | | +-------+ +--------+---+---+ | Given | 05/24/20 | 1 drop | | | | | 19 9:12 | | | | | | AM PDT | | | | +-------+ +--------+---+---+ +---+---+ | | | +---+---+ + +-------+ + +---+---+ | oxyCODONE-acetaminophen | Given | 05/25/20 | 1 tablet | | | | (PERCOCET) 5-325 mg per tablet 1 | | 19 7:43 | | | | | tablet 1 tablet, Oral, EVERY 6 | | AM PDT | | | | | HOURS PRN, Pain, Starting Mon | | | | | | | 05/22/19 at 0937 | | | | | | + +-------+ + +---+---+ +-------+ + +---+---+ | Given | 05/24/20 | 1 tablet | | | | | 19 6:34 | | | | | | PM PDT | | | | +-------+ + +---+---+ | Given | 05/24/20 | 1 tablet | | | | | 19 7:54 | | | | | | AM PDT | | | | +-------+ + +---+---+ +---+---+ | | | +---+---+ + +-------+ +-------+---+---+ | pantoprazole (PROTONIX) DR | Given | 05/25/20 | 40 mg | | | | tablet 40 mg 40 mg, Oral, DAILY | | 19 6:32 | | | | | BEFORE BREAKFAST, First dose on | | AM PDT | | | | | 05/21/19 at 0730, Do not cut or | | | | | | | crush., Indication: GERD | | | | | | + +-------+ +-------+---+---+ +-------+ +-------+---+---+ | Given | 05/24/20 | 40 mg | | | | | 19 6:54 | | | | | | AM PDT | | | | +-------+ +-------+---+---+ | Given | 05/23/20 | 40 mg | | | | | 19 6:31 | | | | | | AM PDT | | | | +-------+ +-------+---+---+ +---+---+ | | | +---+---+ + +-------+ + +---+---+ | renal multivitamin (DIALYVITE, | Given | 05/25/20 | 1 tablet | | | | [facility]) tablet 1 tablet 1 | | 19 9:42 | | | | | tablet, Oral, DAILY, First dose | | AM PDT | | | | | on 05/21/19 at 0900 | | | | | | + +-------+ + +---+---+ +-------+ + +---+---+ | Given | 05/24/20 | 1 tablet | | | | | 19 9:04 | | | | | | AM PDT | | | | +-------+ + +---+---+ | Given | 05/23/20 | 1 tablet | | | | | 19 8:35 | | | | | | AM PDT | | | | +-------+ + +---+---+ + +---+ | | | + +---+ | sodium chloride 0.9% (NS) | | | infusion 250 mL at 100 mL/hr, | | | Intravenous, EVERY 30 MIN PRN, | | | PRN hypotension., Starting Sun | | | 05/21/19 at 0726, For BP < 90 | | | mmHg on NxStage., Dialysis | | + +---+ | | | + +---+ documented in this encounter
--- OUTSIDE RECORDS SUMMARY | ~2019-07-27 | XMS | Encounter Summary ---
Demographics + + + | Address | [address] | | | [place] [address] | + + + | Home Phone [...] + | Author | [facility] | | | and [place] | + + + | Organization | [facility] | | | and [place] | + + + | Address | Unknown | + + + | Phone | Unavailable | + + + Support + + + + + | Name | Relationship | Address | Phone | + + + + + | India Til[place] | ECON | [address] | | | | | [place], [place] | | | | | [address] | | + + + + + | Yina La | ECON | Unknown | | + + + + + | Yina Peterson | ECON | Unknown | | + + + + + | Leatha Casillas | ECON | Unknown | | + + + + + Care Team Providers + +------+ + | Care Rental Coordinator Name | Role | Phone | + +------+ + PCP | Unavailable | + +------+ + Encounter Details +--------+ + + + + | Date | Type | Department | Care Team | Description | +--------+ + + + + | 12/20/ | Hospital | [facility] | [facility], | | | 2008 - | Encounter | MED CTR CANCER | Venkatesh Forte MD [address] | | | | | [place] [address] | [facility] | | | 01/10/ | | [place], [place] | [place] [address] | | | 2008 | | [address] | [phone] | | | | | [phone] | | | +--------+ + + + [...]
--- OUTSIDE RECORDS SUMMARY | ~2019-07-27 | XMS | Encounter Summary ---
Demographics + + + | Address | [address] | | | [place] [address] | + + + | Home Phone [...] [facility] | | | and [place] | + + + | Organization | [facility] | | | and [place] | + + + | Address | Unknown | + + + | Phone | Unavailable | + + + Support + + + + + | Name | Relationship | Address | Phone | + + + + + | India Tilley | ECON | [address] | | | | | [place], [place] | | | | | [address] | | + + + + + | Yina La | ECON | Unknown | | + + + + + | Yina Peterson | ECON | Unknown | | + + + + + | Leatha Casillas | ECON | Unknown | | + + + + + Care Team Providers + +------+ + | Care Rough Rib Grader Name | Role | Phone | + +------+ + PCP | Unavailable | + +------+ + Encounter Details +--------+ + + + + | Date | Type | Department | Care Team | Description | +--------+ + + + + | 07/22/ | Hospital | [facility] | Gopi Muñoz | | | 2005 | Encounter | MED CTR XRAY [address] | M, DO [address] | | | | | [place] | [place] | | | | | [place] [address] | [place] | | | | | [phone] | [address] | | | | | [...]
--- OUTSIDE RECORDS SUMMARY | ~2019-07-27 | XMS | Encounter Summary ---
Demographics + + + | Address | [address] | | | [place] [address] | + + + | Home Phone [...] Author | [facility] | | | and [place] | + + + | Organization | [facility] | | | and [place] | + + + | Address | Unknown | + + + | Phone | Unavailable | + + + Support + + + + + | Name | Relationship | Address | Phone | + + + + + | India Tilley | ECON | [address] | | | | | [place], [place] | | | | | [address] | | + + + + + | Yina La | ECON | Unknown | | + + + + + | Yina Peterson | ECON | Unknown | | + + + + + | Leatha Casillas | ECON | Unknown | | + + + + + Care Team Providers + +------+ + | Care Start Up Specialist Name | Role | Phone | + +------+ + PCP | Unavailable | + +------+ + Encounter Details +--------+ + + + + | Date | Type | Department | Care Team | Description | +--------+ + + + + | 11/08/ | Imaging | [facility] | Provider, | | | 2018 | Exam | MED CTR EXTERNAL | [address] | | | | | IMAGING | [address] | | | | | [phone] | [place] [address] | | +--------+ + + + + [...] for comparison only - no result from [place]. | [facility] | + + + + +---------+ + + | Performing | Address | City/State/Zipcode | Phone Number | | Organization | | | | + +---------+ + + | [facility] | | | | + +---------+ + + documented in this encounter Visit Diagnoses Not on filedocumented in this encounter"
--- OUTSIDE RECORDS SUMMARY | ~2019-07-27 | XMS | Encounter Summary ---
Demographics + + + | Address | [address] | | | [place] [address] | + + + | Home Phone [...] | Author | [facility] | | | and Kamaljitana | + + + | Organization | [facility] | | | and [place] | + + + | Address | Unknown | + + + | Phone | Unavailable | + + + Support + + + + + | Name | Relationship | Address | Phone | + + + + + | India Tilley | ECON | [address] | | | | | [place], [place] | | | | | [address] | | + + + + + | Yina La | ECON | Unknown | | + + + + + | Yina Peterson | ECON | Unknown | | + + + + + | Leatha Casillas | ECON | Unknown | | + + + + + Care Team Providers + +------+ + | Care Expediter Clerk Name | Role | Phone | [...] | Surgery | kidney | DO [address] | [address] | | | | | disease, | Sweta, Jorden | [address] | | | | | stage V | [address] [place] | [place], | | | | | ([facility]ERLY [facility]) | [place] | [place] [address] | | | | | | [address] | Phone: | | | | | | Phone: | [phone] | | | | | | [phone] | Fax: | | | | | | Fax: | [phone] | | | | | | [phone] | | +--------+ + + + + + Encounter Details +--------+---------+ + + + | Date | Type | Department | Care Team | Description | +--------+---------+ + + + | 12/30/ | Office | [facility] | Santos Stephenson | Chronic kidney | | 2018 | Visit | SURGERY [address] | MD Kinga, FACS [address] | disease, stage V | | | | [place], [place] | [address] [facility] | (HCC) (Primary Dx) | | | | [address] | [place] [address] | | | | | [phone] | [phone] | | | | | | | [...] Same Day Surgery (corner of [address]) at 12:00pm. Your surgery is called AV [...] successful and comfortable surgery. Sign up for [employer] if you want easy access to your medical information online. You can: Review your medications, immunizations, allergies and medical history. View details of your past and upcoming appointments. Sign up for [employer] if you want easy access to your medical information online. Only you, your doctor and your health care team are permitted to view the information sent through [employer]. Through [employer] you can: ? Review your medications, immunizations, [...] different ways you can sign up for [employer]: ? The first way is to get online at: [email or web address] and sign up directly throug h the website prior to your appointment with us. You can call [phone] ([phone]) if you have any questions or need assistance. ? The second way is through the [employer] lyudmila which can be accessed with any smart phone. Ju st go to your luydmila store and look up [employer]. ? The third way is to do [...] ? Francisca Womack PA-C Who is your Enroute Controller/Kidney Specialist ? Dr. Muñoz When was the [...] dialysis on Wednesday, Wednesday and Fridays in [place]. She states she has had breast cancer, had a LEFT side mastectomy. CARDIAC: Denies [place], chest pain or tightness. RISK: Never smoker, current 38 year diabetic. Family Hx of diabetes. States mother had kid cedric failure NICO: Patient has previously been diagnosed with sleep apnea. She had a sleep study performe d at [facility] but does not wear a CPAP machine [...] Placement; Surgeon: Nora Leo MD; Location : [facility] MAIN OR Allergies Allergen Reactions Lisinopril Pt [...] REPORT: PATIENT NAME : Estefani Tilley EQUIPMENT: ProfitSee-xLander.ruo with 10-5 mHertz probe. INDICATIONS: Dialysis access [...]
--- OUTSIDE RECORDS SUMMARY | ~2019-07-27 | XMS | Encounter Summary ---
Demographics + + + | Address | [address] | | | [place] [address] | + + + | Home Phone [...] + | Author | [facility] | | | and Kamaljitana | + + + | Organization | [facility] | | | and [place] | + + + | Address | Unknown | + + + | Phone | Unavailable | + + + Support + + + + + | Name | Relationship | Address | Phone | + + + + + | India Tilley | ECON | [address] | | | | | [place], [place] | | | | | [address] | | + + + + + | Yina La | ECON | Unknown | | + + + + + | Yina Peterson | ECON | Unknown | | + + + + + | Leatha Casillas | ECON | Unknown | | + + + + + Care Team Providers + +------+ + | Care Claims Adjudicator Name | Role | Phone | + +------+ + PCP | Unavailable | + +------+ + Encounter Details +--------+ + + + + | Date | Type | Department | Care Team | Description | +--------+ + + + + | 11/08/ | [facility] | [facility] | Provider, | | | 2018 | Exam | MED CTR EXTERNAL | MD [address] | | | | | IMAGING | [address] | | | | | [phone] | [place] [address] | | +--------+ + + + + [...] for comparison only - no result from [place]. | [facility] | + + + + +---------+ + + | Performing | Address | City/State/Zipcode | Phone Number | | Organization | | | | + +---------+ + + | [facility] | | | | + +---------+ + + documented in this encounter Visit Diagnoses Not on filedocumented in this encounter"
--- OUTSIDE RECORDS SUMMARY | ~2019-07-27 | XMS | Encounter Summary ---
Demographics + + + | Address | [address] | | | [place] [address] | + + + | Home Phone [...] | Author | [facility] | | | and Kamaljitana | + + + | Organization | [facility] | | | and [place] | + + + | Address | Unknown | + + + | Phone | Unavailable | + + + Support + + + + + | Name | Relationship | Address | Phone | + + + + + | India Tilley | ECON | [address] | | | | | [place], [place] | | | | | [address] | | + + + + + | Yina La | ECON | Unknown | | + + + + + | Yina Peterson | ECON | Unknown | | + + + + + | Leatha Casillas | ECON | Unknown | | + + + + + Care Team Providers + +------+ + | Care Package Sorter Name | Role | Phone | [...] Refill | | | | [address] | [place] | | | | | [place] | [address] | | | | | [address] | | | | | | [phone] | | | +--------+--------+ + + + [...]
--- OUTSIDE RECORDS SUMMARY | ~2019-07-27 | XMS | Encounter Summary ---
Demographics + + + | Address | [address] | | | [place] [address] | + + + | Home Phone [...] + + | Author | [facility] | | | and Kamaljit[place] | + + + | Organization | [facility] | | | and [place] | + + + | Address | Unknown | + + + | Phone | Unavailable | + + + Support + + + + + | Name | Relationship | Address | Phone | + + + + + | India Tilley | ECON | [address] | | | | | [place], [place] | | | | | [address] | | + + + + + | Yina La | ECON | Unknown | | + + + + + | Yina Peterson | ECON | Unknown | | + + + + + | Leatha Casillas | ECON | Unknown | | + + + + + Care Team Providers + +------+ + | Care Music Librarian Name | Role | Phone | + [...] | | | | renal | PA-C [address] | [address] [place] [address] | | | | | disease | | [place]orden [place] | | | | | ([facility]ERLY [facility]) | CONFEDERATED | [address] | | | | | Procedures | WAY | [place] | | | | | [place] OFFICE | [place], | [address] Phone: | | | | | OUTPATIENT | [place] [address] | [phone] | | | | | VISIT 25 | Phone: | Fax: | | | | | MINUTES | [phone] | [phone] | | | | | | Fax: | | | | | | | [phone] | | +--------+--------+ + + + + Encounter Details +--------+ + + + + | Date | Type | Department | Care Team | Description | +--------+ + + + + | 04/25/ | Off-Site | [facility] | Gopi Muñoz | End stage renal | | 2018 | Visit | NEPHROLOGY [address] | M, DO [address] | disease (HCC) | | | | [address] | [place], [address] [address] | (Primary Dx) | | | | [place] | [place] | | | | | [address] | [address] | | | | | [phone] | | | +--------+ + + + [...] to HTN and diabetic glomerulosclerosis at the [facility]. She also has depression, long [...] in touch with the CHR at the [facility], and she states that "she has not. " She will not provide a direct answer why she does not confer directly with [facility] for better resources? She de nies acute [...] candidate to get in touch with a [place] commissary representative at the [facility] for some immediate madiha tance. 2. I [...] here in the [facility]. : [place]. Santos Stephenson MD, [facility] documented in thi s encounter Plan of Treatment Not on filedocumented as of this encounter Visit Diagnoses + + | Diagnosis | + + | End stage renal disease (HCC) - Primary End stage renal disease | + + documented in this encounter
--- OUTSIDE RECORDS SUMMARY | ~2019-07-27 | XMS | Encounter Summary ---
Demographics + + + | Address | [address] | | | [place] [address] | + + + | Home Phone [...] Author | [facility] | | | and Kamaljitana | + + + | Organization | [facility] | | | and [place] | + + + | Address | Unknown | + + + | Phone | Unavailable | + + + Support + + + + + | Name | Relationship | Address | Phone | + + + + + | India Tilley | ECON | [address] | | | | | [place], [place] | | | | | [address] | | + + + + + | Yina La | ECON | Unknown | | + + + + + | Yina Peterson | ECON | Unknown | | + + + + + | Leatha Casillas | ECON | Unknown | | + + + + + Care Team Providers + +------+ + | Care Market Survey Representative Name | Role | Phone | + +------+ + PCP | Unavailable | + +------+ + Encounter Details +--------+ + + + + | Date | Type | Department | Care Team | Description | +--------+ + + + + | 10/21/ | Abstract | [facility] | Santos Stephenson | | | 2018 | | SURGERY [address] | MD Kinga, FACS [address] | | | | | [place], [place] | [address] [facility] | | | | | [address] | [place] [address] | | | | | [phone] | [phone] | | | | | | | [...]
--- OUTSIDE RECORDS SUMMARY | ~2019-07-27 | XMS | Encounter Summary ---
Demographics + + + | Address | [address] | | | [place] [address] | + + + | Home Phone [...] | Author | [facility] | | | and Kamaljitana | + + + | Organization | [facility] | | | and [place] | + + + | Address | Unknown | + + + | Phone | Unavailable | + + + Support + + + + + | Name | Relationship | Address | Phone | + + + + + | India Tilley | ECON | [address] | | | | | [place], [place] | | | | | [address] | | + + + + + | Yina La | ECON | Unknown | | + + + + + | Yina Peterson | ECON | Unknown | | + + + + + | Leatha Casillas | ECON | Unknown | | + + + + + Care Team Providers + +------+ + | Care Boiler Erector Name | Role | Phone | + +------+ + | Renato Pierson ALLIGATOR SHEAR OPERATOR | PCP | | + +------+ + [...] | Infection | Nick Miller | [address]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 | [place], | [place], | | | | | 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 [address] | [place] [address] | | | | | al disc | [address] | Phone: | | | | | (pyogenic), | [place], [place] | [phone] | | | | | thoracic | [address] | Fax: | | | | | region (HCC) | Phone: | [phone] | | | | | | [phone] | | | | | | 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: | | | | | | s of | [phone] | | | | | | thoracic | | | | | | | vertebra | | | | | | | ([facility]) | | | | [...] + + | 07/13/ | Hospital | [facility] | Fabiana Miller, | Canceled (OTHER) | | 2019 | Encounter | CENTER IR INTRA OP | Nick Apodaca MD | | | | | [address] | [address] | | | | | [place], [place] | [place] [address] | | | | | [address] | [phone] | | | | | [phone] | | | | | | | [address] [place] | | | | | | MD [address] | | | | | | [address] | | | | | | [place] [address] | | | | | | [phone] | | | | | | | [...]
--- OUTSIDE RECORDS SUMMARY | ~2019-07-27 | XMS | Encounter Summary ---
Demographics + + + | Address | [address] | | | [place] [address] | + + + | Home Phone [...] + + | Author | [facility] | | | and Kamaljitana | + + + | Organization | [facility] | | | and [place] | + + + | Address | Unknown | + + + | Phone | Unavailable | + + + Support + + + + + | Name | Relationship | Address | Phone | + + + + + | India Tilley | ECON | [address] | | | | | [place], [place] | | | | | [address] | | + + + + + | Yina La | ECON | Unknown | | + + + + + | Yina Peterson | ECON | Unknown | | + + + + + | Leatha Casillas | ECON | Unknown | | + + + + + Care Team Providers + +------+ + | Care Field Tax Auditor Name | Role | Phone | + +------+ + PCP | Unavailable | + +------+ + Encounter Details +--------+ + + + + | Date | Type | Department | Care Team | Description | +--------+ + + + + | 05/18/ | Orders Only | [facility] | Fabiana Miller, | | | 2018 | | INFECTIOUS DISEASE | Nick Apodaca MD | | | | | [address] | [address] | | | | | [place], [place] | [place] [address] | | | | | [address] | [phone] | | | | | [phone] | | | +--------+ + + + [...] | | REFERENCE | | | | [facility];[address] | | LAB | | | | Blvd;[place] | | [facility] | | | | [id number]: Testing | | LABORATORY | | | | performed at [facility], [address] | | | | | | [facility], | | | | | | [place] [address] | | | | + + + + + + + + | Specimen | + + | | + + + + + + + | Performing | Address | City/State/Zipcode | Phone Number | | Organization | | | | + + + + + | REFERENCE LAB | [address] [place] [address] | [place] [address] | [phone] | | [facility] | Blvd. | | | | LABORATORY | | | | + + + + + | REFERENCE LAB | [address] [place] [address] | [place] [address] | | | [facility] | Blvd. | | | | LABORATORY | | | | + + + + + documented in this encounter Visit Diagnoses Not on filedocumented in this encounter"
--- OUTSIDE RECORDS SUMMARY | ~2019-07-27 | XMS | Encounter Summary ---
Demographics + + + | Address | [address] | | | [place] [address] | + + + | Home Phone [...] | Author | [facility] | | | and Kamaljitana | + + + | Organization | [facility] | | | and [place] | + + + | Address | Unknown | + + + | Phone | Unavailable | + + + Support + + + + + | Name | Relationship | Address | Phone | + + + + + | India Tilley | ECON | [address] | | | | | [place], [place] | | | | | [address] | | + + + + + | Yina La | ECON | Unknown | | + + + + + | Yina Peterson | ECON | Unknown | | + + + + + | Leatha Casillas | ECON | Unknown | | + + + + + Care Team Providers + +------+ + | Care Sales Trader Name | Role | Phone | + +------+ + | Renato Pierson MANAGER IN HOME | PCP | | + +------+ + [...] | al disc | [address] | [place], [place] | | | | | (pyogenic), | [place], [place] | [address] | | | | | thoracic | [address] | Phone: | | | | | region ([facility]) | Phone: | [phone] | | | | | | [phone] | Fax: | | | | | 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: | [phone] | | | | | s of | [phone] | | | | | | thoracic | | | | | | | vertebra | | | | | | | ([facility]) | | | | | [...] + + | 05/22/ | Hospital | [facility] | Fabiana Miller, | No Show | | 2019 | Encounter | [facility] | Nick Apodaca MD | | | | | [address] | [address] | | | | | [place], [place] | [place] [address] | | | | | [address] | [phone] | | | | | [phone] | | | +--------+ + + + [...]
--- OUTSIDE RECORDS SUMMARY | ~2019-07-27 | XMS | Encounter Summary ---
Demographics + + + | Address | [address] | | | [place] [address] | + + + | Home Phone [...] Author | [facility] | | | and Kamaljitana | + + + | Organization | [facility] | | | and [place] | + + + | Address | Unknown | + + + | Phone | Unavailable | + + + Support + + + + + | Name | Relationship | Address | Phone | + + + + + | India Tilley | ECON | [address] | | | | | [place], [place] | | | | | [address] | | + + + + + | Yina La | ECON | Unknown | | + + + + + | Yina Peterson | ECON | Unknown | | + + + + + | Leatha Casillas | ECON | Unknown | | + + + + + Care Team Providers + +------+ + | Care Automatic Silk Screen Printer Name | Role | Phone | [...] + + | 03/23/ | Emergency | [facility] | Carlos Baker | Osteomyelitis, | | 2019 - | | MED CTR EMERGENCY | MD Venkatesh [address] | unspecified site, | | | | CENTER [address] | [address] [place] | unspecified type | | 03/24/ | | [place], [place] | [place] [address] | ([facility]) (Primary Dx); | | 2018 | | [address] | [phone] | Acute midline | | | | [phone] | | thoracic back pain; | | [...] | | | | | | | ([facility]), Right hip | | | | [...] 03/30/20 | | | IVPBIndications: | days (//) through | | | 19 | 9 | | Osteomyelitis | 05/04 Indications: | | | | | | | Infection of Bone | | | | | | | and Bone Marrow | | | | | + + + +---------+ + + documented as of this encounter Plan of Treatment + +------+--------+ [...] | | | FICATI | | | ON?07/ | | | 11/201 | | | 9 | | | 17:03? | | | [place] | | | MS, | | | [place] | | | | | | R?MRN: | | | | | | [id number] | | | [id number] | | | riteri | | | [...] | | | St. | | | [place] | | | y | | | [...] | | | [facility] | | | [facility] | | | [facility] | | | [facility] | | | St[facility] | | | [place] | | | y | | | [...] | | | St. | | | [place] | | | y H. | | [...] | | e of | | | [employer] | | | | | | mckeon [...] | | | St. | | | [place] | | | y H. | | [...] the | | | | | | expert witness | | | al | | | [...] | | | St. | | | [place] | | | y H. | | [...] | | e of | | | [employer] | | | | | | mckeon [...] | | | [facility] | | | Covert | | | Covert | | | ID | | | [...] | | | [facility] | | | Covert | | | Covert | | | ID | | | [...] | | | [facility] | | | Covert | | | Covert | | | ID | | | [...] | | | [facility] | | | Covert | | | Covert | | | ID | | | [...] | | | [facility] | | | Covert | | | Covert | | | ID | | | [...] | | | [facility] | | | QUINAULT | | | | | | HEALTH [...] | | | [id number] | | | [id number] | | | 3131 | | | [...] | | | | incubation. | | REINA | | | | [...] ST. | [address] | [place], [place] | [phone] | | [facility] | | [address] | | | - LABORATORY | | [...] + | [facility] | [address] | [place] | [phone] | | [facility] | | [address] | | | - LABORATORY | | [...] + | [facility] | [address] | [place] | [phone] | | [facility] | | [address] | | | - LABORATORY | | [...] | 31.12 (H) | <=3.00 mg/L | [facility] | | | Sensitive | | | STMarianela REINA | | [...] [address] | [place] | [phone] | | [facility] | | [address] | | | - LABORATORY | | [...] 18 | 9 - 23 mg/dL | [facility] | | | | | | [facility] | | | | | | MEDICAL | | | | | | CENTER - | | | | | | LABORATORY | | + + + + + + | Creatinine | 3.78 (H) | 0.55 - 1.02 | [facility] | | | | | mg/dL | [facility] | | | | | | MEDICAL | | | | | | CENTER - | | | | | | LABORATORY | | + + + + + + | eGFR if not | 12 (L)Comment: | >=60 | [facility] | | | | GLOMERULAR FILTRATION | mL/min/1.73m2 | [facility] | | | [place] | RATE,ESTIMATED | | MEDICAL | | | | mL/min/1.87l2Nmhk than | | CENTER - | | [...] [address] | [place] | [phone] | | [facility] | | [address] | | | - LABORATORY | | | | + + + + + Sedimentation Rate (03/23/2019 6:35 PM PDT) + +--------+ + + + | Component | Value | Ref Range | Performed | Pathologist | | | | | At | Signature | + +--------+ + + + | ESR | 61 (H) | <30 mm/hr | [facility] | | | | | | RE[facility] [...] [address] | [place] | [phone] | | [facility] | | [address] | | | - LABORATORY | | | | + + + + + CBC with Differential (03/23/2019 6:35 PM PDT) + + + + + + | Component | Value | Ref Range | Performed | Pathologist | | | | | At | Signature | + + + + + + | WBC | 5.8 | 4.0 - 11.0 K/uL | [facility] | | | | | | [facility] | | | | | | MEDICAL | | | | | | CENTER - | | | | | | LABORATORY | | + + + + + + | RBC | 3.36 (L) | 3.70 - 5.20 [...] [address] | [place] | [phone] | | [facility] | | [address] | | | - LABORATORY | | [...] lymphadenopathy. | | | LUNGS:There is a oyjzr-jv-keyljvhw layering left pleural effusion. | | | [...] or hilar | | lymphadenopathy.LUNGS:There is a zpmlo-en-ppnaenfb layering left pleural effusion. | | There [...] very highly suspicious for osteomyelitis/discitis at the F19-T14xcszw.Small to | | moderate layering left pleural [...] | | | | PRN, Other, Starting [facility] 03/23/19 | | PM PDT | | | | | at 2031, For 1 dose, MRI | | | | | | + +-------+ +-------+---+---+ +---+---+ | | | +---+---+ + +-------+ +--------+---+---+ | LORazepam (ATIVAN) injection | Given | 03/23/20 | 0.5 mg | | | | 0.5 mg 0.5 mg, Intravenous, | | 19 8:22 | | | | | ONCE, [facility] 03/23/19 at 2014, For 1 | | PM PDT | [...] | | | | 90 Minutes, ONCE, [facility] 03/23/19 at | | | | | | | 2240, For 1 dose, Keep in | | | | | | | refrigerator., Indications: | | | | | | | Osteomyelitis | | | | | | + +---------+ + +-------+---+ + +---+ | | | + +---+ | vancomycin per pharmacy | | | PHARMACY CONSULT, Starting [facility] | | | 03/23/19 at 2229, Indications: | | | Osteomyelitis | | + +---+ | | | + +---+ documented in this encounter
--- OUTSIDE RECORDS SUMMARY | ~2019-07-27 | XMS | Encounter Summary ---
Demographics + + + | Address | [address] | | | [place] [address] | + + + | Home Phone [...] + + + | Author | [facility] | | | and Kamaljitana | + + + | Organization | [facility] | | | and [place] | + + + | Address | Unknown | + + + | Phone | Unavailable | + + + Support + + + + + | Name | Relationship | Address | Phone | + + + + + | India Tilley | ECON | [address] | | | | | [place], [place] | | | | | [address] | | + + + + + | Yina La | ECON | Unknown | | + + + + + | Yina Peterson | ECON | Unknown | | + + + + + | Leatha Casillas | ECON | Unknown | | + + + + + Care Team Providers + +------+ + | Care Stump Blower Name | Role | Phone | + +------+ + PCP | Unavailable | + +------+ + Encounter Details +--------+ + + + + | Date | Type | Department | Care Team | Description | +--------+ + + + + | 12/20/ | Hospital | [facility] | [facility], | | | 2008 - | Encounter | MED CTR CANCER | Venkatesh Forte MD [address] | | | | | [place] [address] | [place] | | | 01/10/ | | [place], [place] | [place] [address] | | | 2008 | | [address] | [phone] | | | | | [phone] | | | +--------+ + + + [...]
--- OUTSIDE RECORDS SUMMARY | ~2019-07-27 | XMS | Encounter Summary ---
Demographics + + + | Address | [address] | | | [place] [address] | + + + | Home Phone [...] + | Author | [facility] | | | and [place]it[place] | + + + | Organization | [facility] | | | and [place] | + + + | Address | Unknown | + + + | Phone | Unavailable | + + + Support + + + + + | Name | Relationship | Address | Phone | + + + + + | India Tilley | ECON | [address] | | | | | [place], [place] | | | | | [address] | | + + + + + | Yina La | ECON | Unknown | | + + + + + | Yina Peterson | ECON | Unknown | | + + + + + | Leatha Casillas | ECON | Unknown | | + + + + + Care Team Providers + +------+ + | Care Director Medical Name | Role | Phone | + [...] | Infection | Nick Miller | [address]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 | [place], | [place], | | | | | 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 [address] | [place] [address] | | | | | al disc | [address] | Phone: | | | | | (pyogenic), | [place], [place] | [phone] | | | | | thoracic | [address] | Fax: | | | | | region (HCC) | Phone: | [phone] | | | | | | [phone] | | | | | | 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: | | | | | | s of | [phone] | | | | | | thoracic [...] + + | 06/13/ | Office | [facility] | Fabiana Miller, | 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 | 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 | Nick Apodaca MD | intervertebral disc | | | | [address] | [address] | (pyogenic), thoracic | | | | [place], [place] | [place] [address] | region (HCC) | | | | [address] | [phone] | (Primary Dx); | | | | [phone] | | Osteomyelitis of | | | [...] | | | | ([facility]); Central | | | | | [...] Pritchard MD - 06/13/2019 2:00 PM PDT [facility] Service: Infectious Diseases Outpatient Follow Up [...] Unfortunately, the patient ended up admitted to [facility] in [place] soon aft er that due to fluid overload and CHF exacerbation. I did receive a call from her team of doctors during the patient's hospital stay and I jos mmended to transfer the patient to [facility] or [facility] f or diagnostic work-up for the [...] today as she is able now to open hearth door liner a more erect posture compared to her [...] W/CANNULATED SCREWS; Surgeon: Scott Koroma MD; Location: [facility] MAIN OR HYSTERECTOMY MASTECTOMY 2005 left ear NOSE SURGERY 2008 OTHER SURGICAL HISTORY Right 03/28/2019 Procedure: TUNNEL PICC LINE PLACEMENT-6fr 22cm BARD Power Line; Surgeon: Jose Jiménez MD; Location: [facility] INTERVENTIONAL RADIOLOGY REMOVAL TUNNELED CATHETER Right 04/04/[address] Stephenson SHUNT PLACEMENT/INSERTION N/A 11/08/2017 Procedure: Tunneled Hemodialysis Catheter Placement; Surgeon: Nora Leo MD; Location : [facility] MAIN OR SHUNT PLACEMENT/INSERTION Right 02/04/2018 Procedure: INSERTION SHUNT HEMODIALYSIS W/ PERMACATH; Surgeon: Heather Navarro MD; L ocation: [facility] MAIN OR VEIN SURGERY Right 01/04/2018 Procedure: Right Transposed Basilic Vein to Proximal Radial Artery; Surgeon: Santos Stephenson MD, FACS; Location: [facility] MAIN OR SOCIAL HISTORY Social History Socioeconomic [...] receive any antibiotic therapy intravenously at the [facility]. She was educated about the risks of permanent central line and risk of bacteremia. We are hoping to get her repeat CT-guided procedure within the next 7 days. The patient wi shes to do this in [place] and we will explore that possibility, otherwise she was expla ined that she has to come to the [facility]. Side effects of medications, duration of [...] REFERENCE | | | | performed at [facility];[address] | | LAB | | | | [place] | | [facility] | | | | [address];[place] [address] | | LABORATORY | | + + + + + + + + | Specimen | + + | Blood | + + + + + + + | Performing | Address | City/State/Zipcode | Phone Number | | Organization | | | | + + + + + | REFERENCE LAB | [address] | [place] [address] | [phone] | | [facility] | Blvd[address] | | | | LABORATORY | | | | + + + + + | REFERENCE LAB | [address] | [place] [address] | | | [facility] | Blvd. | [...] REFERENCE | | | | performed at [facility];[address] | | LAB | | | | [place] | | [facility] | | | | [address];[place] [address] | | LABORATORY | | + + + + + + + + | Specimen | + + | Blood | + + + + + + + | Performing | Address | City/State/Zipcode | Phone Number | | Organization | | | | + + + + + | REFERENCE LAB | [address] [place] [address] | [place] [address] | [phone] | | [facility] | Blvd. | | | | LABORATORY | | | | + + + + + | REFERENCE LAB | [address] [place] [address] | [place] [address] | | | [facility] | Blvd. | [...]
--- OUTSIDE RECORDS SUMMARY | ~2019-07-27 | XMS | Encounter Summary ---
Demographics + + + | Address | [address] | | | [place] [address] | + + + | Home Phone [...] Author | [facility] | | | and [place] | + + + | Organization | [facility] | | | and [place] | + + + | Address | Unknown | + + + | Phone | Unavailable | + + + Support + + + + + | Name | Relationship | Address | Phone | + + + + + | India Tilley | ECON | [address] | | | | | [place], [place] | | | | | [address] | | + + + + + | Yina La | ECON | Unknown | | + + + + + | Yina Peterson | ECON | Unknown | | + + + + + | Leatha Casillas | ECON | Unknown | | + + + + + Care Team Providers + +------+ + | Care Wire Strander Name | Role | Phone | + +------+ + PCP | Unavailable | + +------+ + Encounter Details +--------+ + + + + | Date | Type | Department | Care Team | Description | +--------+ + + + + | 07/26/ | Hospital | [facility] | Anna Banegas MD | Unspecified Backache | | 2006 | Encounter | CON[address] | [address] | | | | | [address] | [place], [place] | | | | | [place], [place] | [address] | | | | | [address] | | | | | | [phone] | | | +--------+ + + + [...]
--- OUTSIDE RECORDS SUMMARY | ~2019-07-27 | XMS | Encounter Summary ---
Demographics + + + | Address | [address] | | | [place] [address] | + + + | Home Phone [...] Author | [facility] | | | and [place] | + + + | Organization | [facility] | | | and [place] | + + + | Address | Unknown | + + + | Phone | Unavailable | + + + Support + + + + + | Name | Relationship | Address | Phone | + + + + + | India Tilley | ECON | [address] | | | | | [place], [place] | | | | | [address] | | + + + + + | Yina La | ECON | Unknown | | + + + + + | Yina Peterson | ECON | Unknown | | + + + + + | Leatha Casillas | ECON | Unknown | | + + + + + Care Team Providers + +------+ + | Care Forestry Pilot Name | Role | Phone | + +------+ + PCP | Unavailable | + +------+ + Encounter Details +--------+ + + + + | Date | Type | Department | Care Team | Description | +--------+ + + + + | 01/05/ | Hospital | [facility] | Scott Koroma, | Closed fracture of | | 2018 | Encounter | MED CTR DERICK XRAY | MD Nash SEPULVEDA | neck of right femur, | | | | [address] [place] | [place], [place] | initial encounter | | | | [place], [place] | [address] | ([facility]); Right hip | | | | [address] | | pain | | | | [phone] | | | +--------+ + + + [...] section. | | | | | encounter ([facility]) | | | | | [...]
--- OUTSIDE RECORDS SUMMARY | ~2019-07-27 | XMS | Encounter Summary ---
Demographics + + + | Address | [address] | | | [place] [address] | + + + | Home Phone [...] + | Author | [facility] | | | and [place] | + + + | Organization | [facility] | | | and [place] | + + + | Address | Unknown | + + + | Phone | Unavailable | + + + Support + + + + + | Name | Relationship | Address | Phone | + + + + + | India Tilley | ECON | [address] | | | | | [place], [place] | | | | | [address] | | + + + + + | Yina La | ECON | Unknown | | + + + + + | Yina Peterson | ECON | Unknown | | + + + + + | Leatha Casillas | ECON | Unknown | | + + + + + Care Team Providers + +------+ + | Care Application Infrastructure Engineer Name | Role | Phone | + +------+ + PCP | Unavailable | + +------+ + Encounter Details +--------+ + + + + | Date | Type | Department | Care Team | Description | +--------+ + + + + | 11/08/ | Imaging | [facility] | Provider, | | | 2018 | Exam | MED CTR EXTERNAL | [address] | | | | | IMAGING | [address] | | | | | [phone] | [place] [address] | | +--------+ + + + + [...] for comparison only - no result from [facility]. | [facility] | + + + + +---------+ + + | Performing | Address | City/State/Zipcode | Phone Number | | Organization | | | | + +---------+ + + | [facility] | | | | + +---------+ + + documented in this encounter Visit Diagnoses Not on filedocumented in this encounter"
--- OUTSIDE RECORDS SUMMARY | ~2019-07-27 | XMS | Encounter Summary ---
Demographics + + + | Address | [address] | | | [place] [address] | + + + | Home Phone | | + + + | Preferred Language | Unknown | + + + | Marital Status | Single | + + + | Confucianist Affiliation | Unknown | + + + | Race | Unknown | + + + | Ethnic Group | Unknown | + + + Author + + + | Author | [facility] | | | and [place] | + + + | Organization | [facility] | | | and [place] | + + + | Address | Unknown | + + + | Phone | Unavailable | + + + Support + + + + + | Name | Relationship | Address | Phone | + + + + + | India Tilley | ECON | [address] | | | | | [place], [place] | | | | | [address] | | + + + + + | Yina La | ECON | Unknown | | + + + + + | Yina Peterson | ECON | Unknown | | + + + + + | Leatha Casillas | ECON | Unknown | | + + + + + Care Team Providers + +------+ + | Care Shade Matcher Name | Role | Phone | + +------+ + PCP | Unavailable | + +------+ + Encounter Details +--------+ + + + + | Date | Type | Department | Care Team | Description | +--------+ + + + + | 11/18/ | Hospital | [facility] | Patricia, | | | 2007 - | Encounter | MED CTR CANCER | Venkatesh Forte MD [address] | | | | [place] [address] | [facility] | | | 12/11/ | | [place] | [place] [address] | | | 2007 | | [address] | [phone] | | | | | [phone] | | | +--------+ + + + [...]
--- OUTSIDE RECORDS SUMMARY | ~2019-07-27 | XMS | Encounter Summary ---
Demographics + + + | Address | [address] | | | [place] [address] | + + + | Home Phone [...] | Author | [facility] | | | and [place] | + + + | Organization | [facility] | | | and [place] | + + + | Address | Unknown | + + + | Phone | Unavailable | + + + Support + + + + + | Name | Relationship | Address | Phone | + + + + + | India Tilley | ECON | [address] | | | | | [place], [place] | | | | | [address] | | + + + + + | Yina La | ECON | Unknown | | + + + + + | Yina Peterson | ECON | Unknown | | + + + + + | Leatha Casillas | ECON | Unknown | | + + + + + Care Team Providers + +------+ + | Care Change Management Facilitator Name | Role | Phone | + +------+ + PCP | Unavailable | + +------+ + Encounter Details +--------+ + + + + | Date | Type | Department | Care Team | Description | +--------+ + + + + | 12/27/ | Documentati | [facility] | Gopi Muñoz | | | 2019 | on | NEPHROLOGY [address] | M, DO [address] | | | | | [address] | [address] | | | | | [place], [place] | [place] | | | | | [address] | [address] | | | | | [phone] | | | +--------+ + + + [...] Progress Tatiana Gamble - 12/27/2018 9:13 AM [facility] order, sign ed and dated 12/23/[address] Muñoz. Sent to scan. documented in this encounter Plan of Treatment Not on filedocumented as of this encounter Visit Diagnoses Not on filedocumented in this encounter"
--- OUTSIDE RECORDS SUMMARY | ~2019-07-27 | XMS | Encounter Summary ---
Demographics + + + | Address | [address] | | | [place] [address] | + + + | Home Phone [...] + | Author | [facility] | | | and [place] | + + + | Organization | [facility] | | | and [place] | + + + | Address | Unknown | + + + | Phone | Unavailable | + + + Support + + + + + | Name | Relationship | Address | Phone | + + + + + | India Tilley | ECON | [address] | | | | | [place], [place] | | | | | [address] | | + + + + + | Yina La | ECON | Unknown | | + + + + + | Yina Peterson | ECON | Unknown | | + + + + + | Leatha Casillas | ECON | Unknown | | + + + + + Care Team Providers + +------+ + | Care Babbitter Name | Role | Phone | + [...] | [address] | [address], [place] | | | | | [place] | [address] [place] | | | | | [address] | [address] | | | | | [phone] | | | +--------+ + + + [...] Referral packet received from Dora Bruno PA-C, [facility] to nephrology. Sent to Malik owens signed by Tatiana Rendon at 03/24/2017 1:05 PM PDTdocumented in this encounter Plan of Treatment Not on filedocumented as of this encounter Visit Diagnoses Not on filedocumented in this encounter"
--- OUTSIDE RECORDS SUMMARY | ~2019-07-27 | XMS | Encounter Summary ---
Demographics + + + | Address | [address] | | | [place] [address] | + + + | Home Phone [...] | Author | [facility] | | | and [place] | + + + | Organization | [facility] | | | and [place] | + + + | Address | Unknown | + + + | Phone | Unavailable | + + + Support + + + + + | Name | Relationship | Address | Phone | + + + + + | India Tilley | ECON | [address] | | | | | [place], [place] | | | | | [address] | | + + + + + | Yina La | ECON | Unknown | | + + + + + | Yina Peterson | ECON | Unknown | | + + + + + | Leatha Casillas | ECON | Unknown | | + + + + + Care Team Providers + +------+ + | Care Doping Supervisor Name | Role | Phone | [...] + + | 01/06/ | Telephone | [facility] | Scott Koroma, | Insurance | | 2019 | | ORTHOPEDIC SURGERY | [address] | Authorization | | | | [address] [facility] | [place] | | | | | [place] | [address] | | | | | [address] | | | | | | [phone] | | | +--------+ + + + [...]
--- OUTSIDE RECORDS SUMMARY | ~2019-07-27 | XMS | Encounter Summary ---
Demographics + + + | Address | [address] | | | [place] [address] | + + + | Home Phone | | + + + | Preferred Language | Unknown | + + + | Marital Status | Single | + + + | Bahai Affiliation | Unknown | + + + | Race | Unknown | + + + | Ethnic Group | Unknown | + + + Author + + + | Author | [facility] | | | and [place] | + + + | Organization | [facility] | | | and [place] | + + + | Address | Unknown | + + + | Phone | Unavailable | + + + Support + + + + + | Name | Relationship | Address | Phone | + + + + + | India Tilley | ECON | [phone] | | | | | [place], [place] | | | | | [address] | | + + + + + | Yina La | ECON | Unknown | | + + + + + | Yina Peterson | ECON | Unknown | | + + + + + | Leatha Casillas | ECON | Unknown | | + + + + + Care Team Providers + +------+ + | Care Assembler Erector Name | Role | Phone | + +------+ + | Renato Pierson SIDE HEMMER | PCP | | + +------+ + Encounter Details +--------+ + + + + | Date | Type | Department | Care Team | Description | +--------+ + + + + | 05/18/ | Orders Only | [facility] | Maribeth Vaughan | 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 | | [address] | Y, Production Control Supervisor | intervertebral disc | | | | [place] | | (pyogenic), thoracic | | | | [address] | | region ([facility]); | | | | [phone] | | Osteomyelitis of | | | | | | thoracic vertebra | | | | | | ([facility]) | +--------+ + + + [...] section. | | | | | region ([facility]) | | | [...] section. | | | | | region ([facility]) | | | | | | Osteomyelitis of | | | | | | thoracic vertebra | | | | | | ([facility]) | | + +--------+ + + + | C-REACTIVE PROTEIN | Routin | 05/18/2019 | Infection of | Results for this | | | e | 3:45 PM | intervertebral disc | procedure are in the | | | | PDT | (pyogenic), thoracic | results section. | | | | | region ([facility]) | | | | | | Osteomyelitis of | | | | | | thoracic vertebra | | | | | | ([facility]) | | + +--------+ + + + | COMPREHENSIVE | Routin | 05/18/2019 | Infection of | Results for this | | METABOLIC PANEL | e | 3:45 PM | intervertebral disc | procedure are in the | | | | PDT | (pyogenic), thoracic | results section. | | | | | region ([facility]) | | | | | | Osteomyelitis of | | | | | | thoracic vertebra | | | | | | ([facility]) | | + +--------+ + + + | CULTURE, BLOOD | Routin | 05/18/2019 | Infection of | Results for this | | | e | 3:08 PM | intervertebral disc | procedure are in the | | | | PDT | (pyogenic), thoracic | results section. | | | | | region ([facility]) | | | | | | Osteomyelitis of | | | | | | thoracic vertebra | | | | | | ([facility]) | | + +--------+ + [...] | | | Absolute | performed at [facility];[address] | [address] | LAB | | | | [place] | | [facility] | | | | [address];[place] [address] | | LABORATORY | | + + + + + + + + | Specimen | + + | Blood | + + + + + + + | Performing | Address | City/State/Zipcode | Phone Number | | Organization | | | | + + + + + | REFERENCE LAB | [address] | [place] [address] | [phone] | | [facility] | Blvd[address] | | | | LABORATORY | | | | + + + + + | REFERENCE LAB | [address] | [place] [address] | | | [facility] | Bl[address] | [...] | | | | | performed at [facility];[address] | | | | | | [address] | | | | | | [address];[place] [address] | | | | | | | | | | + + + + + + + + | Specimen | + + | Blood | + + + + + + + | Performing | Address | City/State/Zipcode | Phone Number | | Organization | | | | + + + + + | REFERENCE LAB | [address] | [place] [address] | [phone] | | [facility] | Blvd[address] | | | | LABORATORY | | | | + + + + + | REFERENCE LAB | [address] | [place] [address] | | | [facility] | Blvd[address] | [...] REFERENCE | | | | performed at [facility];[address] | | LAB | | | | [place] | | [facility] | | | | Bl[address];[place] [address] | | LABORATORY | | + + + + + + + + | Specimen | + + | Blood | + + + + + + + | Performing | Address | City/State/Zipcode | Phone Number | | Organization | | | | + + + + + | REFERENCE LAB | [address] [place] [address] | [place] [address] | [phone] | | [facility] | Blvd[address] | | | | LABORATORY | | | | + + + + + | REFERENCE LAB | [address] [place] [address] | [place] [address] | | | [facility] | Blvd. | [...] REFERENCE | | | | performed at [facility];[address] | | LAB | | | | [place] | | [facility] | | | | [address];[place] [address] | | LABORATORY | | + + + + + + + + | Specimen | + + | Blood | + + + + + + + | Performing | Address | City/State/Zipcode | Phone Number | | Organization | | | | + + + + + | REFERENCE LAB | [address] | [place] [address] | [phone] | | [facility] | Blvd[address] | | | | LABORATORY | | | | + + + + + | REFERENCE LAB | [address] | [place] [address] | | | [facility] | Blvd[address] | [...] REFERENCE | | | | [facility];[address] | | LAB | | | | Blvd;[place] | | [facility] | | | | [id number]: Testing | | LABORATORY | | | | performed at [facility], [address] | | | | [address], | | | | | | [place] [address] | | | | + + + [...] + | REFERENCE LAB | [address] | [place] [address] | [phone] | | [id number] | Blvd. | | | | LABORATORY | | | | + + + + + | REFERENCE LAB | [address] | [place] [address] | | | [facility] | Blvd. | | | | LABORATORY [...]
--- OUTSIDE RECORDS SUMMARY | ~2019-07-27 | XMS | Encounter Summary ---
Demographics + + + | Address | [address] | | | [place] [address] | + + + | Home Phone [...] | Author | [facility] | | | and [place]it[place] | + + + | Organization | [facility] | | | and [place] | + + + | Address | Unknown | + + + | Phone | Unavailable | + + + Support + + + + + | Name | Relationship | Address | Phone | + + + + + | India Tilley | ECON | [address] | | | | | [place], [place] | | | | | [address] | | + + + + + | Yina La | ECON | Unknown | | + + + + + | Yina Peterson | ECON | Unknown | | + + + + + | Leatha Casillas | ECON | Unknown | | + + + + + Care Team Providers + +------+ + | Care Collar Runner Name | Role | Phone | + +------+ + PCP | Unavailable | + +------+ + Encounter Details +--------+ + + + + | Date | Type | Department | Care Team | Description | +--------+ + + + + | 01/15/ | Hospital | [facility] | | | | 2006 - | Encounter | MED CTR CANCER | | | | | | CENTER [facility] [address] | | | | 02/10/ | | [place] | | | | 2006 | | [address] | | | | | | [phone] | | | +--------+ + + + [...]
--- OUTSIDE RECORDS SUMMARY | ~2019-07-27 | XMS | Encounter Summary ---
Demographics + + + | Address | [address] | | | [place] [address] | + + + | Home Phone [...] Author | [facility] | | | and [place] | + + + | Organization | [facility] | | | and [place] | + + + | Address | Unknown | + + + | Phone | Unavailable | + + + Support + + + + + | Name | Relationship | Address | Phone | + + + + + | India Tilley | ECON | [address] | | | | | [place], [place] | | | | | [address] | | + + + + + | Yina La | ECON | Unknown | | + + + + + | Yina Peterson | ECON | Unknown | | + + + + + | Leatha Casillas | ECON | Unknown | | + + + + + Care Team Providers + +------+ + | Care French Tutor Name | Role | Phone | + +------+ + PCP | Unavailable | + +------+ + Encounter Details +--------+ + + + + | Date | Type | Department | Care Team | Description | +--------+ + + + + | 05/12/ | Hospital | [facility] | | | | 2006 - | Encounter | MED CTR CANCER | | | | | | CENTER [facility] [address] | | | | 05/13/ | | [place] | | | | 2006 | | [address] | | | | | | [phone] | | | +--------+ + + + [...]
--- OUTSIDE RECORDS SUMMARY | ~2019-07-27 | XMS | Encounter Summary ---
Demographics + + + | Address | [address] | | | [place] [address] | + + + | Home Phone [...] | Author | [facility] | | | and [place] | + + + | Organization | [facility] | | | and [place] | + + + | Address | Unknown | + + + | Phone | Unavailable | + + + Support + + + + + | Name | Relationship | Address | Phone | + + + + + | India Tilley | ECON | [id number] | | | | | [place], [place] | | | | | [address] | | + + + + + | Yina La | ECON | Unknown | | + + + + + | Yina Peterson | ECON | Unknown | | + + + + + | Leatha Casillas | ECON | Unknown | | + + + + + Care Team Providers + +------+ + | Care Coning Machine Operator Name | Role | Phone | + +------+ + PCP | Unavailable | + +------+ + Encounter Details +--------+ + + + + | Date | Type | Department | Care Team | Description | +--------+ + + + + | 11/08/ | [facility] | [facility] | Provider, | | | 2018 | Exam | [facility] | [address] | | | | | IMAGING | [address] | | | | | [phone] | [place] [address] | | +--------+ + + + + [...] for comparison only - no result from [place]. | [facility] | + + + + +---------+ + + | Performing | Address | City/State/Zipcode | Phone Number | | Organization | | | | + +---------+ + + | [facility] | | | | + +---------+ + + documented in this encounter Visit Diagnoses Not on filedocumented in this encounter"
--- OUTSIDE RECORDS SUMMARY | ~2019-07-27 | XMS | Encounter Summary ---
Demographics + + + | Address | [address] | | | [place] [address] | + + + | Home Phone [...] Author | [facility] | | | and Kamaljitana | + + + | Organization | [facility] | | | and [place] | + + + | Address | Unknown | + + + | Phone | Unavailable | + + + Support + + + + + | Name | Relationship | Address | Phone | + + + + + | India Campos | ECON | [address] | | | | | [place], [place] | | | | | [address] | | + + + + + | Yina La | ECON | Unknown | | + + + + + | Yina Peterson | ECON | Unknown | | + + + + + | Leatha Casillas | ECON | Unknown | | + + + + + Care Team Providers + +------+ + | Care Corrosion Control Engineer Name | Role | Phone | [...] | | | | | [address] | [address] | | | | | [place], [place] | [place] [address] | | | | | [address] | [phone] | | | | | [phone] | | | +--------+---------+ + + + [...] Christina MD - 05/25/2019 11:24 AM PDT [place], [place] HOSPITALIST DISCHARGE SUMMARY Pt. 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 S/p thoracentesis wit h 1300cc fluid removed, studies c/w transudative effusion. Cytology negative for malignant c ells. No growth on culture thus far. Patient is on room air. Of note, recent echo in March sh owed normal EF. 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 SBP 200s on a rrival here. Blood pressure improved after HD, resumption of home medications. Amlodipine an d losartan also added, Nephrology will CTM as outpatient. 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 At baseline currently. #Recent osteomyelitis Patient admitted [...] information: [address] [place] [address] Condition: stable Diet: renal, cc Greater than 30 minutes were spent on discharge and coordination of post-hospital care. Electronically signed by: Nora Christina MD, 05/25/2019 11:24 [facility] documented in this enco unter Discharge [...] will likely include a biopsy in the [facility] down the line. Nora Christina MD documented [...] of Anemia, Arthritis, Back pain, Breast cancer ([facility]), Cancer ([facility]), Diabetes ([facility]), Heart disease, Hemodialysis patient ([facility]), History of blood clots, Hypercholesteremia, Hypertensio n, Hypothyroidism, Renal failure, Seasonal allergies, and Stroke (cerebrum) ([facility]). . Risk fa ctors for MDR organisms [...] Culture, Body Fluid, Sterile, Smear, with Anaerobes [[id number]] Collected: 05/22/19 1509 Order Status: Sent Lab Status: In process Updated: 05/22/19 151 Specimen: Body Fluid from Pleural Fluid, Left Narrative: The following orders were created for panel order Culture, Body Fluid, Sterile, Smear, wit h Anaerobes. Procedure Abnormality Status --------- ------ Culture, Body Fluid, Aerobe[[id number]] Preliminary result Culture, Body Fluid, Bre...[[id number]] In process Please view results for these tests on the individual orders. Culture, Fungus, Smear [[id number]] Collected: 05/22/19 150 Order Status: Sent Lab Status: In process Updated: 05/22/19 151 Specimen: Body Fluid from Pleural Fluid, Left Culture, Body Fluid, Aerobe [[id number]] Collected: 05/22/19 150 Order Status: Completed Lab Status: Preliminary result Updated: 05/24/19 1038 Specimen: Body Fluid from Pleural Fluid, Left Culture No growth to date Gram Stain Result 4+ White Blood Cells No organisms seen Culture, Body Fluid, Anaerobe [[id number]] Collected: 05/22/19 150 Order Status: Resulted Lab Status: In process Updated: 05/22/19 151 Specimen: Body Fluid from Pleural Fluid, Left Culture, MRSA [[id number]] Collected: 05/20/192021 Order Status: Completed Lab Status: Final result Updated: 05/22/19 0753 Specimen: Tissue from Nares Culture Negative for MRSA by chromogenic agar method. 2+ Coagulase positive Staphylococcus Culture, Blood, 2nd Specimen [[id number]] Collected: 05/18/19 1548 Order Status: Completed Lab Status: Final result Updated: 1945 RESULT NO GROWTH 6 DAYS RESULT Testing performed at [facility];[address] [place] [address];[place] [address] Comment: Testing performed at [facility], [address] [place] [address], [place] [address] Culture, Blood [[id number]] Collected: 05/18/19 150 Order Status: Completed Lab Status: Final result Updated: 1945 Specimen: Blood from Antecubital, Right RESULT NO GROWTH 6 DAYS RESULT Testing performed at [facility];[address] [place] [address];[place] [address] Comment: Testing performed at [facility], [address] [facility], [place] [address] Culture, Blood [[id number]] Collected: 05/18/19 1447 Order Status: Canceled Lab [...] and htn Prior to admission dialysis schedule: [facility] Vancomycin Dosing in HD patients: Loading [...] ESR, Cxs, case with his previous ID Livestock Nutrition Territory Manager, Dr. Nick Miller MD . He recommends [...] Bx's here. Therefore, shai kearney confer with [facility] IR, outpt. She was agreeable to staying one more nite for HD and clarif y AB regimen. Vanc. /Cefepime were given, IV, during discussion, after reviewing MRI report but before the phone conversation with Dr. Jung. BP control is better. Her Mental status is very clear. Also had HD x 5 hrs, 2K+, 35 HCO3 a nd tolerated well. [facility] Joo Rodriguez, Efficiency Manager - 05/24/2019 3:46 PM PDT VANCOMYCIN PER PHARMACY PROTOCOL: AMS/Drug Name - Vancomycin Patient: Ara Campos [id number] Admit: 05/20/2019 20:16 RELEVANT ALLERGIES: Amoxicillin 74 yrs old female patient admitted on 05/20/2019 for shortness of breath. Patient is receiv ing vancomycin starting on 05/24/2019 for osteomyelitis. Patient has a past medical histor y of Anemia, Arthritis, Back pain, Breast cancer ([facility]), Cancer ([facility]), Diabetes ([facility]), Heart disease, Hemodialysis patient ([facility]), History of blood clots, Hypercholesteremia, Hypertensio n, Hypothyroidism, Renal failure, Seasonal allergies, and Stroke (cerebrum) ([facility]). . Risk fa ctors for MDR organisms [...] Culture, Body Fluid, Sterile, Smear, with Anaerobes [[id number]] Collected: 05/22/19 150 Order Status: Sent Lab Status: In process Updated: 05/22/19 1518 Specimen: Body Fluid from Pleural Fluid, Left Narrative: The following orders were created for panel order Culture, Body Fluid, Sterile, Smear, wit h Anaerobes. Procedure Abnormality Status --------- ------ Culture, Body Fluid, Aerobe[[id number]] Preliminary result Culture, Body Fluid, Bre...[[id number]] In process Please view results for these tests on the individual orders. Culture, Fungus, Smear [[id number]] Collected: 05/22/19 1509 Order Status: Sent Lab Status: In process Updated: 05/22/19 1510 Specimen: Body Fluid from Pleural Fluid, Left Culture, Body Fluid, Aerobe [[id number]] Collected: 05/22/19 1509 Order Status: Completed Lab Status: Preliminary result Updated: 05/24/19 1038 Specimen: Body Fluid from Pleural Fluid, Left Culture No growth to date Gram Stain Result 4+ White Blood Cells No organisms seen Culture, Body Fluid, Anaerobe [[id number]] Collected: 05/22/19 1509 Order Status: Resulted Lab Status: In process Updated: 05/22/19 151 Specimen: Body Fluid from Pleural Fluid, Left Culture, MRSA [[id number]] Collected: 05/20/192021 Order Status: Completed Lab Status: Final result Updated: 05/22/19 0753 Specimen: Tissue from Nares Culture Negative for MRSA by chromogenic agar method. 2+ Coagulase positive Staphylococcus Culture, Blood, 2nd Specimen [[id number]] Collected: 05/18/19 1548 Order Status: Completed Lab Status: Final result Updated: 05/24/19 0546 RESULT NO GROWTH 6 DAYS RESULT Testing performed at [facility];[address] [place] [address] Comment: Testing performed at [facility], [address] [place] [address] Culture, Blood [[id number]] Collected: 05/18/19 1508 Order Status: Completed Lab Status: Final result Updated: 05/24/19 0546 Specimen: Blood from Antecubital, Right RESULT NO GROWTH 6 DAYS RESULT Testing performed at [facility];[address] [place] [address] Comment: Testing performed at [facility], [address] [place] [address] Culture, Blood [[id number]] Collected: 05/18/19 1447 Order Status: Canceled Lab [...] BP elevated Prior to admission dialysis schedule: [facility] Vancomycin Dosing in HD patients: Loading [...] Monitoring Protocol Electronically signed by: Joo Bo, Efficiency Manager 05/24/2019 15:46Electroni terri signed by Joo Bo, Efficiency Manager at 05/24/2019 4:49 PM Kwame Guerin MD - 05/24/2019 11:04 AM PDTFormatting of this note might be different from the origin alPROVIDENCE MOUNT CARMEL [facility]OSPITALE[facility] [place] HOSPITALIST PROGRESS NOTE Patient: Ara Campos : 1945: Age: 74 y.o. 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 At baseline currently. #Recent osteomyelitis Patient admitted 03/24- with T11-12 osteomyelitis and completed 6 weeks vanc/cefepime. Rep eat MRI again redemonstrated possible osteomyelitis - vanc and cefepime have been resumed, Deepa Muñoz is discussing case with ID. #Diabetes Blood sugars at goal. CCM. Patient is again very upset about [facility] and is eating little to [...] Culture, Body Fluid, Sterile, Smear, with Anaerobes [[id number]] Collected: 05/22/19 150 Order Status: Sent Lab Status: In process Updated: 05/22/19 151 Specimen: Body Fluid from Pleural Fluid, Left Narrative: The following orders were created for panel order Culture, Body Fluid, Sterile, Smear, wit h Anaerobes. Procedure Abnormality Status --------- ------ Culture, Body Fluid, Aerobe[[id number]] Preliminary result Culture, Body Fluid, Bre...[[id number]] In process Please view results for these tests on the individual orders. Culture, Fungus, Smear [[id number]] Collected: 05/22/191508 Order Status: Sent Lab Status: In process Updated: 05/22/19 151 Specimen: Body Fluid from Pleural Fluid, Left Culture, Body Fluid, Aerobe [[id number]] Collected: 05/22/19 150 Order Status: Completed Lab Status: Preliminary result Updated: 05/24/19 1038 Specimen: Body Fluid from Pleural Fluid, Left Culture No growth to date Gram Stain Result 4+ White Blood Cells No organisms seen Culture, Body Fluid, Anaerobe [[id number]] Collected: 05/22/191508 Order Status: Resulted Lab Status: [...] rate 6L/min Nora Christina MD 05/24/2019 11:04 [facility] Michelle Solorzano Phar mD - [...] ? Pharmacy list names: [facility] ([place]) ? [employer] insurance reported information Vaccines up [...] Tobacco & Alcohol use/frequency: ? Recreational substances: [id number]-wfqc asked how much or how often patient sta rich "I smoke as much as I want" Other: No changes to LEAD NET SOFTWARE DEVELOPER list, due to the fact that patient was very non compliant. She either di d not want to take her medications, or she stated that she did not know if she was taking th em. She did not want to do the interview. Best possible LEAD NET SOFTWARE DEVELOPER medication list after pharmacy review: Medication review performed and electronically signed by Kerry Jordan, Education Program Manager 05/23/2019 16:20 Reviewed by Michelle Ochoa PharmD 05/23/2019 18:26 Nora Guerin MD - 05/23/2019 3:20 PM PDT [facility] [place] HOSPITALIST PROGRESS NOTE Patient: Ara Campos : 1945: Age: 74 y.o. 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 At baseline currently. #Recent osteomyelitis Patient admitted [...] capsule 667 mg 667 mg Oral TID Olegraio Peng MD 667 m g at 05/23/19 [...] dextrose 10% (D10W) infusion Intravenous Continuous PRN Oelgario Peng MD docusate sodium (COLACE) capsule 100 [...] Culture, Body Fluid, Sterile, Smear, with Anaerobes [[id number]] Collected: 05/22/19 1503 Order Status: Sent Lab Status: In process Updated: 05/22/191512 Specimen: Body Fluid from Pleural Fluid, Left Narrative: The following orders were created for panel order Culture, Body Fluid, Sterile, Smear, wit h Anaerobes. Procedure Abnormality Status --------- ------ Culture, Body Fluid, Aerobe[[id number]] Preliminary result Culture, Body Fluid, Bre...[[id number]] In process Please view results for these tests on the individual orders. Culture, Fungus, Smear [[id number]] Collected: 05/22/19 1509 Order Status: Sent Lab Status: In process Updated: 05/22/19 1510 Specimen: Body Fluid from Pleural Fluid, Left Culture, Body Fluid, Aerobe [[id number]] Collected: 05/22/19 150 Order Status: Completed Lab Status: Preliminary result Updated: 05/23/19 09 Specimen: Body Fluid from Pleural Fluid, Left Culture No growth to date Gram Stain Result 4+ White Blood Cells No organisms seen Culture, Body Fluid, Anaerobe [[id number]] Collected: 05/22/19 150 Order Status: Resulted Lab Status: In process Updated: 05/22/19 151 Specimen: Body Fluid from Pleural Fluid, Left Culture, MRSA [[id number]] Collected: 05/20/192021 Order Status: Completed Lab Status: [...] rate 0.5L/min Nora Christina MD 05/23/2019 15:20 [facility] documented in this enco unter [...] [address] | [place] | [phone] | | [facility] | | [address] | | | - LABORATORY | | [...] [address] | [place] | [phone] | | [facility] | | [address] | | | - LABORATORY | | [...] mL/min/1.73m2 | [facility] | | | [place]GUI[place]AN | RATE,ESTIMATED | | MEDICAL | | | | mL/min/1.79p4Zwxe than | | CENTER - | | [...] [address] | [place] | [phone] | | [facility] | | [address] | | | - LABORATORY | | [...] | Last Dose | | | [facility] | | [...] [address] | [place] | [phone] | | [facility] | | [address] | | | - LABORATORY | | [...] [address] | [place] | [phone] | | [facility] | | [address] | | | - LABORATORY | | [...] | [facility] | [address] | [place] | [phone] | | [facility] | | [address] | | | - LABORATORY | | [...] ST. | [address] | [place], [place] | [phone] | | [facility] | | [address] | | | - LABORATORY | | [...] | | | | | mg/dL | [facility] | | | | | | MEDICAL | | | | | | CENTER - | | | | | | LABORATORY | | + + + + + + | eGFR if not | 6 (L)Comment: GLOMERULAR | >=60 | [facility] | | | | FILTRATION | mL/min/1.73m2 | [facility] | | | ANGUI[place]AN | RATE,ESTIMATED | | MEDICAL | | | | mL/min/1.46a0Jwts than | | CENTER - | | [...] | | | | | mg/dL | [facility] | | | | | | [...] ST. | [address] | [place], [place] | [phone] | | [facility] | | [address] | | | - LABORATORY | | [...] + | [facility] | [address] | [place] | [phone] | | [facility] | | [address] | | | - LABORATORY | | [...] [address] | [place] | [phone] | | [facility] | | [address] | | | - LABORATORY | | [...] [address] | [place] | [phone] | | [facility] | | [address] | | | - LABORATORY | | [...] [address] | [place] | [phone] | | [facility] | | [address] | | | - LABORATORY | | [...] [address] | [place] | [phone] | | [facility] | | [address] | | | - LABORATORY | | [...] | 7 (L)Comment: GLOMERULAR | >=60 | [facility] | | | | FILTRATION | mL/min/1.73m2 | [facility] | | | ANGUILLAN | RATE,ESTIMATED | | MEDICAL | | | | mL/min/1.48r8Ztyw than | | CENTER - | | [...] + | [facility] | [address] | [place] | [phone] | | [facility] | | [address] | | | - LABORATORY | | [...] [address] | [place] | [phone] | | [facility] | | [address] | | | - LABORATORY | | [...] [address] | [place] | [phone] | | [facility] | | [address] | | | - LABORATORY | | [...] [address] | [place] | [phone] | | [facility] | | [address] | | | - LABORATORY | | [...] ST. | [address] | [place] | [phone] | | [facility] | | [address] | | | - LABORATORY | | [...] Performed at: 02 - LabYoni [facility]valos [address] [facility], | REFERENCE LAB | | [place], [place] [id number] Behavioral Psychologist: Violette Mcconnell MD, Phone: | [facility] | | [phone] | | + + + + + + + + | Performing | Address | City/State/Zipcode | Phone Number | | Organization | | | | + + + + + | REFERENCE LAB | [address] | [place] [address] | [phone] | | [facility] - [facility]ET[facility] | [facility] | | | + + + [...] + + | Performed at: 01 - [place] [address], | REFERENCE LAB | | [place], [place] [id number] Behavioral Psychologist: Ernie Lee MD, Phone: | [facility] | | [phone] | | + + + + + + + + | Performing | Address | City/State/Zipcode | Phone Number | | Organization | | | | + + + + + | REFERENCE LAB | [address] | [place] [address] | [phone] | | LABCOYUM[facility] - BKTony | [address] | [place] | [phone] | | [facility] | | [address] | | | - LABORATORY | | [...] + | [facility] | [address] | [place] | [phone] | | [facility] | | [address] | | | - LABORATORY | | [...] + + | Performed at: 01 - [place] [address], | REFERENCE LAB | | [place], [place] [id number] Behavioral Psychologist: Ernie Lee MD, Phone: | [facility] | | [phone] Performed at: 02 - [address] | | | [place] [id number] Behavioral Psychologist: Violette Mcconnell MD, | | | Phone: [phone] | | + + + + + + + + | Performing | Address | City/State/Zipcode | Phone Number | | Organization | | | | + + + + + | REFERENCE LAB | [address] | [place] [address] | [phone] | | [facility] | Drive [...] + | [facility] | [address] | [place] | [phone] | | [facility] | | [address] | | | - LABORATORY | | [...] + | [facility] | [address] | [place] | [phone] | | [facility] | | [address] | | | - LABORATORY | | [...] [address] | [place] | [phone] | | [facility] | | [address] | | | - LABORATORY | | [...] [address] | [place] | [phone] | | [facility] | | [address] | | | - LABORATORY | | [...] mL/min/1.73m2 | [facility] | | | [place] | RATE,ESTIMATED | | MEDICAL | | | | mL/min/1.50g8Fyge than | | CENTER - | | [...] [address] | [place] | [phone] | | [facility] | | [address] | | | - LABORATORY | | [...] [address] | [place] | [phone] | | [facility] | | [address] | | | - LABORATORY | | [...] [address] | [place] | [phone] | | [facility] | | [address] | | | - LABORATORY | | [...] [address] | [place] | [phone] | | [facility] | | [address] | | | - LABORATORY | | [...] | [facility] [facility] | [address] | [place] | [phone] | | [facility] | | [address] | | | - LABORATORY | | [...] ST. | [address] | [place] | [phone] | | [facility] | | [address] | | | - LABORATORY | | [...] [address] | [place] | [phone] | | [facility] | | [address] | | | - LABORATORY | | [...] [address] | [place] | [phone] | | [facility] | | [address] | | | - LABORATORY | | [...] mL/min/1.73m2 | [facility] | | | [place] | RATE,ESTIMATED | | MEDICAL | | | | mL/min/1.26l0Mmtr than | | CENTER - | | [...] 8.6 (L) | 8.7 - 10.4 | [facility] | | | | | mg/dL | [...] + | [facility] | [address] | [place] | [phone] | | [facility] | | [address] | | | - LABORATORY | | [...] [address] | [place] | [phone] | | [facility] | | [address] | | | - LABORATORY | | [...] [address] | [place] | [phone] | | [facility] | | [address] | | | - LABORATORY | | [...] [address] | [place] | [phone] | | [facility] | | [address] | | | - LABORATORY | | [...] [address] | [place] | [phone] | | [facility] | | [address] | | | - LABORATORY | | [...] | this study were reported by the [facility] radiologist on | | | May [...] PHYSICIAN: Gopi Muñoz MD PATIENT NAME: | [place] PATHOLOGY | | MAYKEL CAMPOSEulalia Jimenez GENDER: [...] preparation was | | | performed by [employer] [facility] | | | [place] [address] and [facility] [address] | | | [place] [address]. Professional interpretation was performed | | | by [employer] - [facility] - [address] | | | [place] [address] (Professional Advisor: Alen Simpson, | | | .; [facility]#:[id number]).8 Diagnostician: Darcie López M.S., | | | CT([facility]), [facility] Natural Gas Inspector Diagnostician: Alen Kearney | | | Calvin [...] [address] | [place] | [phone] | | [facility] | | [address] | | | - LABORATORY | | [...] + | [facility] | [address] | [place] | [phone] | | [facility] | | [address] | | | - LABORATORY | | [...] BETH | | | | | | [facility] | | | | | | [...] + | [facility] | [address] | [place], [place] | [phone] | | [facility] | | [address] | | | - LABORATORY | | [...] | | B-12 | <145 | | [facility] | | | | pg/mLINDETERMINATE: | | [...] [address] | [place] | [phone] | | [facility] | | [address] | | | - LABORATORY | | [...] [address] | [place] | [phone] | | [facility] | | [address] | | | - LABORATORY | | [...] | | Screen | | | [facility] | | | | | | [...] St | [place] | | | [facility] | | [address] | | | - BLOOD BANK | [...] | | | | | | [employer] | | | | | [...] ST. | [address] | [place], [place] | [phone] | | [facility] | | [address] | | | - LABORATORY | | [...] + | [facility] [facility] | [address] | [place] | [phone] | | [facility] | | [address] | | | - LABORATORY | | [...] [address] | [place] | [phone] | | [facility] | | [address] | | | - LABORATORY | | [...] + | [facility] | [address] | [place] | [phone] | | [facility] | | [address] | | | - LABORATORY | | [...] + | [facility] | [address] | [place] | [phone] | | [facility] | | [address] | | | - LABORATORY | | [...] mL/min/1.73m2 | . [facility] | | | ANGUI[place]AN | RATE,ESTIMATED | | MEDICAL | | | | mL/min/1.25a8Btkf than | | CENTER - | | [...] [address] | [place] | [phone] | | [facility] | | [address] | | | - LABORATORY | | [...] [address] | [place] | [phone] | | [facility] | | [address] | | | - LABORATORY | | [...] [address] | [place] | [phone] | | [facility] | | [address] | | | - LABORATORY | | [...] | 1 tablet | | | | [facility]) tablet 1 tablet 1 | | [...]
--- OUTSIDE RECORDS SUMMARY | ~2019-07-27 | XMS | Encounter Summary ---
Demographics + + + | Address | [address] | | | [place] [address] | + + + | Home Phone [...] | Author | [facility] | | | and [place] | + + + | Organization | [facility] | | | and [place] | + + + | Address | Unknown | + + + | Phone | Unavailable | + + + Support + + + + + | Name | Relationship | Address | Phone | + + + + + | India Tilley | ECON | [address] | | | | | [place], [place] | | | | | [address] | | + + + + + | Yina La | ECON | Unknown | | + + + + + | Yina Peterson | ECON | Unknown | | + + + + + | Leatha Casillas | ECON | Unknown | | + + + + + Care Team Providers + +------+ + | Care Parachute Supervisor Name | Role | Phone | [...] NEPHROLOGY [address] | M, DO [address] | | | | | [address] | [place] | | | | | [place], [place] | [place] | | | | | [address] | [address] | | | | | [phone] | | | +--------+ + + + [...]
--- OUTSIDE RECORDS SUMMARY | ~2019-07-27 | XMS | Encounter Summary ---
Demographics + + + | Address | [address] | | | [place] [address] | + + + | Home Phone [...] | Author | [facility] | | | and [place] | + + + | Organization | [facility] | | | and [place] | + + + | Address | Unknown | + + + | Phone | Unavailable | + + + Support + + + + + | Name | Relationship | Address | Phone | + + + + + | India Tilley | ECON | [address] | | | | | [place], [place] | | | | | [address] | | + + + + + | Yina La | ECON | Unknown | | + + + + + | Yina Peterson | ECON | Unknown | | + + + + + | Leatha Casillas | ECON | Unknown | | + + + + + Care Team Providers + +------+ + | Care Contracting Support Specialist Name | Role | Phone [...] | CONVERSION [address] | MD [address] [facility] | | | | | [address] | [place], [place] | | | | | [place], [place] | [address] | | | | | [address] | | | | | | [phone] | | | +--------+ + + + [...]
--- OUTSIDE RECORDS SUMMARY | ~2019-07-27 | XMS | Encounter Summary ---
Demographics + + + | Address | [address] | | | [place] [address] | + + + | Home Phone [...] | Author | [facility] | | | and [place] | + + + | Organization | [facility] | | | and [place] | + + + | Address | Unknown | + + + | Phone | Unavailable | + + + Support + + + + + | Name | Relationship | Address | Phone | + + + + + | India Tilley | ECON | [address] | | | | | [place], [place] | | | | | [address] | | + + + + + | Yina La | ECON | Unknown | | + + + + + | Yina Peterson | ECON | Unknown | | + + + + + | Leatha Casillas | ECON | Unknown | | + + + + + Care Team Providers + +------+ + | Care Irrigation Engineer Name | Role | Phone | [...] | | | | renal | PA-C [address] | [address] [place] [address] | | | | | disease | | [place] | | | | | ([facility]ERLY [facility]) | CONFEDERATED | [address] | | | | | Procedures | WAY | [place] | | | | | [place] OFFICE | [place], | [address] Phone: | | | | | OUTPATIENT | [place] [address] | [phone] | | | | | VISIT 25 | Phone: | Fax: | | | | | [place] | [phone] | [phone] | | | | | ESRD RELATED | Fax: | | | | | | SVC MONTHLY | [phone] | | | | | | 20&/> [...] 07/11/ | Off-Site | [facility] | Gopi Muñoz | End stage renal | | 2018 | Visit | NEPHROLOGY [address] | M, DO [address] | disease (HCC) | | | | [address] | [place], [address] | (Primary Dx) | | | | [place], [place] | [place], [place] | | | | | [address] | [address] | | | | | [phone] | | | +--------+ + + + [...]
--- OUTSIDE RECORDS SUMMARY | ~2019-07-27 | XMS | Encounter Summary ---
Demographics + + + | Address | [address] | | | [place] [address] | + + + | Home Phone [...] Author | [facility] | | | and [place] | + + + | Organization | [facility] | | | and [place] | + + + | Address | Unknown | + + + | Phone | Unavailable | + + + Support + + + + + | Name | Relationship | Address | Phone | + + + + + | India Tilley | ECON | [address] | | | | | [place], [place] | | | | | [address] | | + + + + + | Yina La | ECON | Unknown | | + + + + + | Yina Peterson | ECON | Unknown | | + + + + + | Leatha Casillas | ECON | Unknown | | + + + + + Care Team Providers + +------+ + | Care Advertising Sales Agent Name | Role | Phone | [...] + + | 01/05/ | Office | [facility] | Scott Koroma, | Closed fracture of | | 2019 | Visit | ORTHOPEDIC SURGERY | MD [address] [facility] | neck of right femur, | | | | [address] | [place] | initial encounter | | | | [place] | [address] | (HCC) (Primary Dx); | | | | [address] | | Right hip pain | | | | [phone] | | | +--------+---------+ + + + [...] | | | Dictated and Signed by: Aurn Hodge MD | | Electronically signed: 01/05/2019 [...]
--- OUTSIDE RECORDS SUMMARY | ~2019-07-27 | XMS | Encounter Summary ---
Demographics + + + | Address | [address] | | | [place] [address] | + + + | Home Phone [...] Author | [facility] | | | and [place] | + + + | Organization | [facility] | | | and [place] | + + + | Address | Unknown | + + + | Phone | Unavailable | + + + Support + + + + + | Name | Relationship | Address | Phone | + + + + + | India Tilley | ECON | [address] | | | | | [place], [place] | | | | | [address] | | + + + + + | Yina La | ECON | Unknown | | + + + + + | Yina Peterson | ECON | Unknown | | + + + + + | Leatha Casillas | ECON | Unknown | | + + + + + Care Team Providers + +------+ + | Care Road Mixer Operator Name | Role | Phone | [...] + | 03/11/ | Telephone | [facility] | Santos Stephenson | Vascular Access | | 2018 | | SURGERY [address] | MD Kinga, FACS [address] | Problem | | | | [place], [place] | [address] [facility] | | | | | [address] | [place] [address] | | | | | [phone] | [phone] | | | | | | | [...]
--- OUTSIDE RECORDS SUMMARY | ~2019-07-27 | XMS | Encounter Summary ---
Demographics + + + | Address | [address] | | | [place] [address] | + + + | Home Phone [...] | Author | [facility] | | | and [place] | + + + | Organization | [facility] | | | and [place] | + + + | Address | Unknown | + + + | Phone | Unavailable | + + + Support + + + + + | Name | Relationship | Address | Phone | + + + + + | India Tilley | ECON | [address] | | | | | [place], [place] | | | | | [address] | | + + + + + | Yina La | ECON | Unknown | | + + + + + | Yina Peterson | ECON | Unknown | | + + + + + | Leatha Casillas | ECON | Unknown | | + + + + + Care Team Providers + +------+ + | Care Career Representative Name | Role | Phone | [...] + + | 12/29/ | Telephone | [facility] | Santos Stephenson | Appointment | | 2017 | | SURGERY [address] | MD Kinga, FACS [address] | | | | | [place], [place] | [address] [facility] | | | | | [address] | [place] [address] | | | | | [phone] | [phone] | | | | | | | [...]
--- OUTSIDE RECORDS SUMMARY | ~2019-07-27 | XMS | Encounter Summary ---
Demographics + + + | Address | [address] | | | [place] [address] | + + + | Home Phone [...] + | Author | [facility] | | | and [place] | + + + | Organization | [facility] | | | and [place] | + + + | Address | Unknown | + + + | Phone | Unavailable | + + + Support + + + + + | Name | Relationship | Address | Phone | + + + + + | India Tilley | ECON | [address] | | | | | [place], [place] | | | | | [address] | | + + + + + | Yina La | ECON | Unknown | | + + + + + | Yina Peterson | ECON | Unknown | | + + + + + | Leatha Casillas | ECON | Unknown | | + + + + + Care Team Providers + +------+ + | Care Life Skills Trainer Name | Role | Phone | [...] | renal | PA-C 2229 | [address] | | | | | disease | [address] | [place], [place] | | | | | ([facility]ERLY [facility]) | [place] | [address] [facility] | | | | | Procedures | [address] | [facility] [place] | | | | | [place] ESRD | [facility] | [address] Phone: | | | | | RELATED [place] | [place] | [phone] | | | | | MONTHLY | [address] | Fax: | | | | | 20&/> YR OLD | Phone: | [phone] | | | | | 4/> VISITS | [phone] | | | | | | | Fax: | | | | | | | [phone] | | + +--------+ + + + + Encounter Details +--------+ + + + + | Date | Type | Department | Care Team | Description | +--------+ + + + + | 05/08/ | Off-Site | [facility] | Gopi Muñoz | Osteomyelitis, | | 2019 | Visit | NEPHROLOGY [address] | M, DO [address] | unspecified site, | | | | [address] | [place] | unspecified type | | | | [place], [place] | [place] [facility], [place] | (HCC) (Primary Dx); | | | | [address] | [address] | ESRD (end stage | | | | [phone] | | renal disease) on | | [...] not seen.schedule an office visit will at [facility], 2019.] documented in thi s encounter Plan of Treatment Not on filedocumented as of this encounter Visit Diagnoses + + | Diagnosis | + + | Osteomyelitis, unspecified site, unspecified type ([facility]) - Primary | + + | ESRD (end stage renal disease) on dialysis ([facility]) End stage renal disease | + + documented in this encounter"
--- OUTSIDE RECORDS SUMMARY | ~2019-07-27 | XMS | Encounter Summary ---
Demographics + + + | Address | [address] | | | [place] [address] | + + + | Home Phone [...] | [facility] | | | and [place] | + + + | Organization | [facility] | | | and [place] | + + + | Address | Unknown | + + + | Phone | Unavailable | + + + Support + + + + + | Name | Relationship | Address | Phone | + + + + + | India Tilley | ECON | [address] | | | | | [place], [place] | | | | | [address] | | + + + + + | Yina La | ECON | Unknown | | + + + + + | Yina Peterson | ECON | Unknown | | + + + + + | Leatha Casillas | ECON | Unknown | | + + + + + Care Team Providers + +------+ + | Care Cemetery Laborer Name | Role | Phone | [...] | | | | [place] | [address] | | | | | [address] | | | | | | [phone] | | | +--------+ + + + [...]
--- OUTSIDE RECORDS SUMMARY | ~2019-07-27 | XMS | Encounter Summary ---
Demographics + + + | Address | [address] | | | [place] [address] | + + + | Home Phone [...] Author | [facility] | | | and [place] | + + + | Organization | [facility] | | | and [place] | + + + | Address | Unknown | + + + | Phone | Unavailable | + + + Support + + + + + | Name | Relationship | Address | Phone | + + + + + | India Tilley | ECON | [address] | | | | | [place], [place] | | | | | [address] | | + + + + + | Yina La | ECON | Unknown | | + + + + + | Yina Peterson | ECON | Unknown | | + + + + + | Leatha Casillas | ECON | Unknown | | + + + + + Care Team Providers + +------+ + | Care Lead Person Name | Role | Phone | [...] | | | | | [address] | [place], [place] | | | | | [place], [place] | [address] | | | | | [address] | | | | | | [phone] | | | +--------+ + + + [...] +----+---+ + + | | 1 | Bowie | | | | 2 | 43-degrees [...] +----+---+ + + | | 1 | [place] off | | | | 3 | [...] soll | gauge; 1; distraction; short | Jessie Perez RN | India Carrillo RN | [...]
--- OUTSIDE RECORDS SUMMARY | ~2019-07-27 | XMS | Encounter Summary ---
Demographics + + + | Address | [address] | | | [place] [address] | + + + | Home Phone [...] + | Author | [facility] | | | and [place] | + + + | Organization | [facility] | | | and [place] | + + + | Address | Unknown | + + + | Phone | Unavailable | + + + Support + + + + + | Name | Relationship | Address | Phone | + + + + + | India Tilley | ECON | [address] | | | | | [place], [place] | | | | | [address] | | + + + + + | Yina La | ECON | Unknown | | + + + + + | Yina Peterson | ECON | Unknown | | + + + + + | Leatha Casillas | ECON | Unknown | | + + + + + Care Team Providers + +------+ + | Care Owner/Photographer Name | Role | Phone | + +------+ + PCP | Unavailable | + +------+ + Encounter Details +--------+ + + + + | Date | Type | Department | Care Team | Description | +--------+ + + + + | 03/29/ | Abstract | [facility] [place] | Kelsea, | | | 2017 | | NEPHROLOGY [address] | KAYLA Lopez [address] | | | | | [address] | [address], [place] | | | | | [place] | [address] [place] | | | | | [address] | [address] | | | | | [phone] | | | +--------+ + + + [...] of this encounter Progress Tatiana Gamble - 03/29/2017 4:45 PM PDTOutside record: Renal ultrasound, dos: 03/29/17. From [facility]. Sent to scan.Electronically signed by Tatiana Rendon at 03/29 4:46 PM PDTdocumented in this encounter Plan of Treatment Not on filedocumented as of this encounter Visit Diagnoses Not on filedocumented in this encounter"
--- OUTSIDE RECORDS SUMMARY | ~2019-07-27 | XMS | Encounter Summary ---
Demographics + + + | Address | [address] | | | [place] [address] | + + + | Home Phone [...] | Author | [facility] | | | and [place] | + + + | Organization | [facility] | | | and [place] | + + + | Address | Unknown | + + + | Phone | Unavailable | + + + Support + + + + + | Name | Relationship | Address | Phone | + + + + + | India Tilley | ECON | [address] | | | | | [place], [place] | | | | | [address] | | + + + + + | Yina La | ECON | Unknown | | + + + + + | Yina Peterson | ECON | Unknown | | + + + + + | Leatha Casillas | ECON | Unknown | | + + + + + Care Team Providers + +------+ + | Care Sample Carrier Name | Role | Phone | + +------+ + PCP | Unavailable | + +------+ + Encounter Details +--------+ + + + + | Date | Type | Department | Care Team | Description | +--------+ + + + + | 07/07/ | Abstract | [facility] | Gopi Muñoz | | | 2017 | | NEPHROLOGY [address] | M, DO [address] | | | | | [address] [facility] | [place], [facility] 100 | | | | | [place], [place] | [place] | | | | | [address] | [address] | | | | | [phone] | | | +--------+ + + + [...]
--- OUTSIDE RECORDS SUMMARY | ~2019-07-27 | XMS | Encounter Summary ---
Demographics + + + | Address | [address] | | | [place] [address] | + + + | Home Phone [...] Author | [facility] | | | and [place] | + + + | Organization | [facility] | | | and [place] | + + + | Address | Unknown | + + + | Phone | Unavailable | + + + Support + + + + + | Name | Relationship | Address | Phone | + + + + + | India Tilley | ECON | [address] | | | | | [place], [place] | | | | | [address] | | + + + + + | Yina La | ECON | Unknown | | + + + + + | Yina Peterson | ECON | Unknown | | + + + + + | Leatha Casillas | ECON | Unknown | | + + + + + Care Team Providers + +------+ + | Care Liquid Floor And Wall Applier Name | Role | Phone | + +------+ + PCP | Unavailable | + +------+ + Encounter Details +--------+---------+ + + + | Date | Type | Department | Care Team | Description | +--------+---------+ + + + | 01/04/ | Surgery | [facility] | Santos Stephenson | Right Transposed | | 2018 | | MED CTR OR INTRA OP | MD Kinga, FACS [address] | Basilic Vein to | | | | [address] | [address] [place] | Proximal Radial | | | | [place], [place] | [place] [address] | Artery | | | | [address] | [phone] | | | | | [phone] | | | +--------+---------+ + + + [...] what medicines and drugsyou take. This includes sjra-gyw-xxh nter medicines, herbs, supplements, alcohol or other [...] ke ep you safe. Date Last Reviewed: 08/13/201619990860-1121 [employer]. [address] [place] [address]. All righ ts reserved. This information is not intended as a substitute for professional medical care. Always follow your healthcare professional's instructions. [facility] POST-OP INSTRUCTIONS: Arterio-Venous Fistula 1. Keep [...] | | | | | PDT | ([facility]) (N18.5) | | + +--------+ + + [...] [address] | [place] | [phone] | | [facility] | | [address] | | | - LABORATORY | | [...] + | [facility] | [address] | [place] | [phone] | | [facility] | | [address] | | | - LABORATORY | | [...] [address] | [place] | [phone] | | [facility] | | [address] | | | - LABORATORY | | [...] [address] | [place] | [phone] | | [facility] | | [address] | | [...] [facility] | | | [place] | RATE,ESTIMATED | | MEDICAL | | | | mL/min/1.00f2Cjhq than | | CENTER - | | [...] + + | [facility] | [address] | [place] | [phone] | | [facility] | | [address] | | | - LABORATORY | | [...]
--- OUTSIDE RECORDS SUMMARY | ~2019-07-27 | XMS | Encounter Summary ---
Demographics + + + | Address | [address] | | | [place] [address] | + + + | Home Phone [...] | [facility] | | | and [place] | + + + | Organization | [facility] | | | and [place] | + + + | Address | Unknown | + + + | Phone | Unavailable | + + + Support + + + + + | Name | Relationship | Address | Phone | + + + + + | India Tilley | ECON | [address] | | | | | [place], [place] | | | | | [address] | | + + + + + | Yina La | ECON | Unknown | | + + + + + | Yina Petersno | ECON | Unknown | | + + + + + | Leatha Casillas | ECON | Unknown | | + + + + + Care Team Providers + +------+ + | Care Fashion Journalist Name | Role | Phone | + [...] + + | 03/09/ | Telephone | [facility] | Santos Stephenson | Other (appointment) | | 2018 | | SURGERY [address] | MD Kinga, FACS [address] | | | | | [place], [place] | [address] [facility] | | | | | [address] | [place] [address] | | | | | [phone] | [phone] | | | | | | | [...]
--- OUTSIDE RECORDS SUMMARY | ~2019-07-27 | XMS | Encounter Summary ---
Demographics + + + | Address | [address] | | | [place] [address] | + + + | Home Phone [...] | Author | [facility] | | | and [place] | + + + | Organization | [facility] | | | and [place] | + + + | Address | Unknown | + + + | Phone | Unavailable | + + + Support + + + + + | Name | Relationship | Address | Phone | + + + + + | India Tilley | ECON | [address] | | | | | [place], [place] | | | | | [address] | | + + + + + | Yina La | ECON | Unknown | | + + + + + | Yina Peterson | ECON | Unknown | | + + + + + | Leatha Casillas | ECON | Unknown | | + + + + + Care Team Providers + +------+ + | Care It Security Architect Name | Role | Phone | + +------+ + PCP | Unavailable | + +------+ + Encounter Details +--------+ + + + + | Date | Type | Department | Care Team | Description | +--------+ + + + + | 02/28/ | Hospital | [facility] | | | | 2006 | Encounter | MED CTR XRAY [address] | | | | | | [place] | | | | | | [place] [address] | | | | | | [phone] | | | +--------+ + + + [...]
--- OUTSIDE RECORDS SUMMARY | ~2019-07-27 | XMS | Encounter Summary ---
Demographics + + + | Address | [address] | | | [place] [address] | + + + | Home Phone [...] Author | [facility] | | | and [place] | + + + | Organization | [facility] | | | and [place] | + + + | Address | Unknown | + + + | Phone | Unavailable | + + + Support + + + + + | Name | Relationship | Address | Phone | + + + + + | India Tilley | ECON | [address] | | | | | [place], [place] | | | | | [address] | | + + + + + | Yina La | ECON | Unknown | | + + + + + | Yina Peterson | ECON | Unknown | | + + + + + | Leatha Casillas | ECON | Unknown | | + + + + + Care Team Providers + +------+ + | Care Child Abuse Worker Name | Role | Phone | + +------+ + PCP | Unavailable | + +------+ + Encounter Details +--------+ + + + + | Date | Type | Department | Care Team | Description | +--------+ + + + + | 06/15/ | Telephone | [facility] | Ibis Arriola | | | 2019 | | [facility] | L, RN | | | | | [address] | | | | | | [place] | | | | | | [address] | | | | | | [phone] | | | +--------+ + + + [...]
--- OUTSIDE RECORDS SUMMARY | ~2019-07-27 | XMS | Encounter Summary ---
Demographics + + + | Address | [address] | | | [place] [address] | + + + | Home Phone [...] Author | [facility] | | | and [place] | + + + | Organization | [facility] | | | and [place] | + + + | Address | Unknown | + + + | Phone | Unavailable | + + + Support + + + + + | Name | Relationship | Address | Phone | + + + + + | India Tilley | ECON | [address] | | | | | [place], [place] | | | | | [address] | | + + + + + | Yina La | ECON | Unknown | | + + + + + | Yina Peterson | ECON | Unknown | | + + + + + | Leatha Casillas | ECON | Unknown | | + + + + + Care Team Providers + +------+ + | Care Make Up Editor Name | Role | Phone | + +------+ + | DangeloRenato TRANSPORTATION PLANNING TECHNICIAN | PCP | | + +------+ + Reason for Visit + + + | Reason | Comments | + + + | Appointment | schedule | + + + Encounter Details +--------+ + + + + | Date | Type | Department | Care Team | Description | +--------+ + + + + | 06/27/ | Telephone | [facility] | Ta Melendez, | Appointment | | 2018 | | INTERVENTIONAL | MD Chidi Ibanez | (schedule) | | | | RADIOLOGY [address] | [address]aitlyn [address] | | | | | [address] | [place] [address] | | | | | [place], [place] | [phone] | | | | | [address] | | | | | | [phone] | | | +--------+ + + + [...]
--- OUTSIDE RECORDS SUMMARY | ~2019-07-27 | XMS | Encounter Summary ---
Demographics + + + | Address | [address] | | | [place] [address] | + + + | Home Phone [...] Author | [facility] | | | and Kamaljit[place] | + + + | Organization | [facility] | | | and [place] | + + + | Address | Unknown | + + + | Phone | Unavailable | + + + Support + + + + + | Name | Relationship | Address | Phone | + + + + + | India Tilley | ECON | [address] | | | | | [place], [place] | | | | | [address] | | + + + + + | Yina La | ECON | Unknown | | + + + + + | Yina Peterson | ECON | Unknown | | + + + + + | Leatha Caslilas | ECON | Unknown | | + + + + + Care Team Providers + +------+ + | Care Hotel Maintenance Technician Name | Role | Phone | [...] | [address] | [address], [place] | (moderate) (Primary | | | | [place], [place] | [address] [place], [place] | Dx) | | | | [address] | [address] | | | | | [phone] | | | +--------+ + + + [...] 03/23/2017 2:38 PM PDTRenal Ultrasound scheduled at [facility] on 03/29/17 at 10 AM. docu mented in this encounter Plan of Treatment Not on filedocumented as of this encounter Visit Diagnoses + + | Diagnosis | + + | Chronic kidney disease, stage III (moderate) (HCC) - Primary Chronic kidney disease, | | Stage III (moderate) | + + documented in this encounter"
--- OUTSIDE RECORDS SUMMARY | ~2019-07-27 | XMS | Encounter Summary ---
Demographics + + + | Address | [address] | | | [place] [address] | + + + | Home Phone [...] | Author | [facility] | | | and Kamaljit[place] | + + + | Organization | [facility] | | | and [place] | + + + | Address | Unknown | + + + | Phone | Unavailable | + + + Support + + + + + | Name | Relationship | Address | Phone | + + + + + | India Tilley | ECON | [address] | | | | | [place], [place] | | | | | [address] | | + + + + + | Yina La | ECON | Unknown | | + + + + + | Yina Peterson | ECON | Unknown | | + + + + + | Leatha Casillas | ECON | Unknown | | + + + + + Care Team Providers + +------+ + | Care Campaign Marketing Manager Name | Role | Phone [...] + + | 06/01/ | Telephone | [facility] [place] | Darlin Moseley W, | Nephrology | | 2017 | | NEPHROLOGY [address] | [address] | Appointment | | | | [address] [facility] | [address] [place] | | | | | [place] | [place] [address] | | | | | [address] | [phone] | | | | | [phone] | | | +--------+ + + + [...]
--- OUTSIDE RECORDS SUMMARY | ~2019-07-27 | XMS | Encounter Summary ---
Demographics + + + | Address | [address] | | | [place] [address] | + + + | Home Phone [...] Author | [facility] | | | and [place] | + + + | Organization | [facility] | | | and [place] | + + + | Address | Unknown | + + + | Phone | Unavailable | + + + Support + + + + + | Name | Relationship | Address | Phone | + + + + + | India Tilley | ECON | [address] | | | | | [place], [place] | | | | | [address] | | + + + + + | Yina La | ECON | Unknown | | + + + + + | Yina Peterson | ECON | Unknown | | + + + + + | Leatha Casillas | ECON | Unknown | | + + + + + Care Team Providers + +------+ + | Care Lab Scientist Name | Role | Phone | + [...] + + | 06/14/ | Telephone | [facility] | Tabatha Patel, | Care Coordination | | 2019 | | INFECTIOUS DISEASE | [employer] | (Patient Timeline - | | | | [address] | | Line Care/Provider | | | | [place], [place] | | Management ) | | | | [address] | | | | | | [phone] | | | +--------+ + + + [...]
--- OUTSIDE RECORDS SUMMARY | ~2019-07-27 | XMS | Encounter Summary ---
Demographics + + + | Address | [address] | | | [place] [address] | + + + | Home Phone [...] + + + | Author | [facility] | | | and [place] | + + + | Organization | [facility] | | | and [place] | + + + | Address | Unknown | + + + | Phone | Unavailable | + + + Support + + + + + | Name | Relationship | Address | Phone | + + + + + | India Tilley | ECON | [address] | | | | | [place], [place] | | | | | [address] | | + + + + + | Yina La | ECON | Unknown | | + + + + + | Yina Peterson | ECON | Unknown | | + + + + + | Leatha Casillas | ECON | Unknown | | + + + + + Care Team Providers + +------+ + | Care Bi Report Developer Name | Role | Phone | + +------+ + PCP | Unavailable | + +------+ + Encounter Details +--------+ + + + + | Date | Type | Department | Care Team | Description | +--------+ + + + + | 06/19/ | Telephone | [facility] | Ibis Arriola | | | 2019 | | [facility] | L, RN | | | | | [address] | | | | | | [place] | | | | | | [address] | | | | | | [phone] | | | +--------+ + + + [...]
--- OUTSIDE RECORDS SUMMARY | ~2019-07-27 | XMS | Encounter Summary ---
Demographics + + + | Address | [address] | | | [place] [address] | + + + | Home Phone [...] | Author | [facility] | | | and [place] | + + + | Organization | [facility] | | | and [place] | + + + | Address | Unknown | + + + | Phone | Unavailable | + + + Support + + + + + | Name | Relationship | Address | Phone | + + + + + | India Tilley | ECON | [address] | | | | | [place], [place] | | | | | [address] | | + + + + + | Yina La | ECON | Unknown | | + + + + + | Yina Peterson | ECON | Unknown | | + + + + + | Leatha Casillas | ECON | Unknown | | + + + + + Care Team Providers + +------+ + | Care Adolescent Counselor Name | Role | Phone | + [...] | renal | PA-C [address] | [address] | | | | | disease | [address] | [place], [place] | | | | | ([facility]) | [place] | [address] [facility] | | | | | Procedures | [address] | [facility] [place] | | | | | [place] ESRD | [facility] | [address] Phone: | | | | | RELATED [place] | [place] | [phone] | | | | | MONTHLY | [address] | Fax: | | | | | 20&/> YR OLD | Phone: | [phone] | | | | | 4/> VISITS | [phone] | | | | | | | Fax: | | | | | | | [phone] | | + +--------+ + + + + Encounter Details +--------+ + + + + | Date | Type | Department | Care Team | Description | +--------+ + + + + | 05/08/ | Off-Site | [facility] | Gopi Muñoz | Osteomyelitis, | | 2019 | Visit | NEPHROLOGY [address] | M, DO [address] | unspecified site, | | | | [address] | [place] [place] [address] | unspecified type | | | | [place], [place] | [place] [facility], [place] | (HCC) (Primary Dx); | | | | [address] | [address] | ESRD (end stage | | | | [phone] | | renal disease) on | | [...] not seen.schedule an office visit will at [facility], 2019.] documented in thi s encounter Plan of Treatment Not on filedocumented as of this encounter Visit Diagnoses + + | Diagnosis | + + | Osteomyelitis, unspecified site, unspecified type ([facility]) - Primary | + + | ESRD (end stage renal disease) on dialysis ([facility]) End stage renal disease | + + documented in this encounter"
--- OUTSIDE RECORDS SUMMARY | ~2019-07-27 | XMS | Encounter Summary ---
Demographics + + + | Address | [address] | | | [place] [address] | + + + | Home Phone [...] | [facility] | | | and [place] | + + + | Organization | [facility] | | | and [place] | + + + | Address | Unknown | + + + | Phone | Unavailable | + + + Support + + + + + | Name | Relationship | Address | Phone | + + + + + | India Tilley | ECON | [address] | | | | | [place], [place] | | | | | [address] | | + + + + + | Yina La | ECON | Unknown | | + + + + + | Yina Peterson | ECON | Unknown | | + + + + + | Leatha Casillas | ECON | Unknown | | + + + + + Care Team Providers + +------+ + | Care Coater Smoking Pipe Name | Role | Phone | + [...] ([facility]) | | | +--------+--------+ + + [...] SCREWS | | | | [address] | [place] | | | | | [place] | [address] | | | | | [address] | | | | | | [phone] | | | +--------+---------+ + + + [...] signed by: Scott Koroma, 12/20/2018 12:05 [facility] signed by Scott Koroma MD at 05/2019 12:10 PM PDTdocumented in this encounter Discharge Instructions Instructions Gopi Muñoz DO - . Please keep your old HD appt. at [facility] for 12/12/2018. 2. Call our Office if you change your mind and wish to go to [facility] , for further R ehab. 3. [...] might be d ifferent from the original. [facility] [address] [place] [address] PROGRESS NOTE Pt. Name/Age/: Estefani Tilley 73 y.o. 1945 Med. Record Number: [id number] Date of admission: 12/04/2018 NEPHROLOGY HPI - [...] Lungs: Prolonged expiratory phase, with findings of Jo rales lower 1/4 both lungs. Abdomen: Soft, [...] HD tomorrow and assess for DC soon. [facility] Amol Green MD - 12/08/2018 3:29 [...] going to any Rehab. Ctr after DC. [facility] Scott Tadeo MD - 12/07/2018 8:56 [...] rick, DO - 12/06/2018 5:33 PM PDT [facility] [address] [place] [address] PROGRESS NOTE Pt. Name/Age/: Estefani Tilley 73 y.o. 1945 Med. Record Number: [id number] Date of admission: 12/04/2018 NEPHROLOGY HPI - [...] Lungs: Prolonged expiratory phase, with findings of [place] rales lower 1/4 both lungs. 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 Answered questions with head nods or patients stating that she was not taking a medication. Medication: Prior to Admission Sig: Patient taking differently ASPHALT SPREADER as: Atorvastatin 20 mg tablet Take 1 [...] idea what this medication was Best possible ASPHALT SPREADER medication list after pharmacy review: PT REPORTED [...] performed and electronically signed by Kerry Jordan, Pharmaceutical Sales Specialist 12/05/2018 14:45 Reviewed by Flora Watts, PharmD [...] R?MRN: | | | | | | [id number] | | | [id number] | | | riteri | | | [...] | | | St. | | | [place] | | | y | | | [...] | | | [facility] | | | [place] | | | 3 0 | | | [facility] | | | St. | | | [place] | | | y | | | [...] | | | St. | | | [place] | | | y H. | | [...] | | e of | | | eek | | | | | | mckeon [...] | | | St. | | | [place] | | | y H. | | [...] the | | | | | | square dance caller | | | al | | | [...] | | | St. | | | [place] | | | y H. | | [...] | | e of | | | eek | | | | | | mckeon [...] | | | [facility] | | | [place] | | [place] | | | ID | | | [...] | | | [facility] | | | [place] | | [place] | | | ID | | | [...] | | | [facility] | | | [place] | | [place] | | | ID | | | Emerge | | | ncy | | | Cough | | | | | | Shortn | | | ess of | | | | | | [place] | | | | | | Pneumo | | | bridegr, | | | unspec | | | [...] | | | [facility] | | | [place] | | [place] | | | ID | | | [...] | | | [facility] | | | [place] | | [place] | | | ID | | | [...] | | | HAWK | | | NEZ [facility] | | | | | | HEALTH [...] | | | [id number] | | | [id number] | | | [address]131 | | | [...] + | [facility] | [address] | [place] | [phone] | | [facility] | | [address] | | | - LABORATORY | | [...] [address] | [place] | [phone] | | [facility] | | [address] | | | - LABORATORY | | [...] + | [facility] | [address] | [place] | [phone] | | [facility] | | [address] | | | - LABORATORY | | [...] | | POC | | | [facility] | | | | | | [...] [address] | [place] | [phone] | | [facility] | | [address] | | | - LABORATORY | | [...] [address] | [place] | [phone] | | [facility] | | [address] | | | - LABORATORY | | [...] [address] | [place] | [phone] | | [facility] | | [address] | | | - LABORATORY | | [...] ST. | [address] | [place], [place] | [phone] | | [facility] | | [address] | | | - LABORATORY | | [...] | nRBC | | K/uL | [facility] | | | | | | [...] [address] | [place] | [phone] | | [facility] | | [address] | | | - LABORATORY | | [...] + | [facility] | [address] | [place] | [phone] | | [facility] | | [address] | | | - LABORATORY | | [...] [address] | [place] | [phone] | | [facility] | | [address] | | | - LABORATORY | | [...] [address] | [place] | [phone] | | [facility] | | [address] | | | - LABORATORY | | [...] [address] | [place] | [phone] | | [facility] | | [address] | | | - LABORATORY | | [...] + | [facility] | [address] | [place] | [phone] | | [facility] | | [address] | | | - LABORATORY | | [...] | | A1c | | | [facility] | | | | | | [...] [address] | [place] | [phone] | | [facility] | | [address] | | | - LABORATORY | | [...] + | [facility] | [address] | [place] | [phone] | | [facility] | | [address] | | | - LABORATORY | | [...] [address] | [place] | [phone] | | [facility] | | [address] | | | - LABORATORY | | [...] [address] | [place] | [phone] | | [facility] | | [address] | | | - LABORATORY | | [...] + | [facility] [facility] | [address] | [place] | [phone] | | [facility] | | [address] | | | - LABORATORY | | [...] [address] | [place] | [phone] | | [facility] | | [address] | | | - LABORATORY | | [...] [address] | [place] | [phone] | | [facility] | | [address] | | | - LABORATORY | | [...] [address] | [place] | [phone] | | [facility] | | [address] | | | - LABORATORY | | [...] + | [facility] | [address] | [place] | [phone] | | [facility] | | [address] | | | - LABORATORY | | [...] mL/min/1.73m2 | [facility] | | | [place] | | | MEDICAL | | | [...] [address] | [place] | [phone] | | [facility] | | [address] | | | - LABORATORY | | [...] + | [facility] | [address] | [place] | [phone] | | [facility] | | [address] | | | - LABORATORY | | [...] [address] | [place] | [phone] | | [facility] | | [address] | | | - LABORATORY | | [...] + | Performing | Address | City/State[facility] | Phone Number | | Organization | | | | + + + + + | [facility] | [address] | [place] | [phone] | | [facility] | | [address] | | | - LABORATORY | | [...] [address] | [place] | [phone] | | [facility] | | [address] | | | - LABORATORY | | [...] right femoral neck. Dictated and Signed by: Salvtaore Nunez MD | | | Electronically signed: [...] + | [facility] | [address] | [place] | [phone] | | [facility] | | [address] | | | - LABORATORY | | [...] + | [facility] | [address] | [place] | [phone] | | [facility] | | [address] | | | - LABORATORY | | [...] [address] | [place] | [phone] | | [facility] | | [address] | | | - LABORATORY | | [...] mL/min/1.73m2 | [facility] | | | [place] | | | MEDICAL | | | [...] ST. | [address] | [place], [place] | [phone] | | [facility] | | [address] | | | - LABORATORY | | [...] [address] | [place] | [phone] | | [facility] | | [address] | | | - LABORATORY | | [...] scheduled: AC, NPO, Daytime | | | 7040-5981 Use NIGHT DOSE for | | | doses scheduled: HS, 3AM, | | | Nighttime 5051-4739, | | + +---+ | | | [...] | | | HR < 60, Starting [place] 12/04/18 at | | | | | [...]
--- OUTSIDE RECORDS SUMMARY | ~2019-07-27 | XMS | Encounter Summary ---
Demographics + + + | Address | [address] | | | [place] [address] | + + + | Home Phone [...] | Author | [facility] | | | and [place]it[place] | + + + | Organization | [facility] | | | and [place] | + + + | Address | Unknown | + + + | Phone | Unavailable | + + + Support + + + + + | Name | Relationship | Address | Phone | + + + + + | India Tilley | ECON | [address] | | | | | [place], [place] | | | | | [address] | | + + + + + | Yina La | ECON | Unknown | | + + + + + | Yina Peterson | ECON | Unknown | | + + + + + | Leatha Casillas | ECON | Unknown | | + + + + + Care Team Providers + +------+ + | Care Supervisor Matrix Name | Role | Phone | + [...] + + | 01/06/ | Telephone | [facility] | Scott Koroma, | Insurance | | 2019 | | ORTHOPEDIC SURGERY | [address] | Authorization | | | | [address] [facility] | [place] | | | | | [place] | [address] | | | | | [address] | | | | | | [phone] | | | +--------+ + + + [...]
--- OUTSIDE RECORDS SUMMARY | ~2019-07-27 | XMS | Encounter Summary ---
Demographics + + + | Address | [address] | | | [place] [address] | + + + | Home Phone [...] + | Author | [facility] | | | and Kamal[place]it[place] | + + + | Organization | [facility] | | | and [place] | + + + | Address | Unknown | + + + | Phone | Unavailable | + + + Support + + + + + | Name | Relationship | Address | Phone | + + + + + | India Tilley | ECON | [address] | | | | | [place], [place] | | | | | [address] | | + + + + + | Yina La | ECON | Unknown | | + + + + + | Yina Peterson | ECON | Unknown | | + + + + + | Leatha Casillas | ECON | Unknown | | + + + + + Care Team Providers + +------+ + | Care Rehabilitation Services Counselor Name | Role | Phone | + +------+ + PCP | Unavailable | + +------+ + Encounter Details +--------+ + + + + | Date | Type | Department | Care Team | Description | +--------+ + + + + | 10/21/ | Abstract | [facility] | Santos Stephenson | | | 2018 | | SURGERY [address] | MD Kinga, FACS [address] | | | | | [address] [place], [place] | [address] [facility] | | | | | [address] | [place] [address] | | | | | [phone] | [phone] | | | | | | | [...]
--- OUTSIDE RECORDS SUMMARY | ~2019-07-27 | XMS | Encounter Summary ---
Demographics + + + | Address | [address] | | | [place] [address] | + + + | Home Phone [...] | [facility] | | | and [place]it[place] | + + + | Organization | [facility] | | | and [place] | + + + | Address | Unknown | + + + | Phone | Unavailable | + + + Support + + + + + | Name | Relationship | Address | Phone | + + + + + | India Tilley | ECON | [address] | | | | | [place], [place] | | | | | [address] | | + + + + + | Yina La | ECON | Unknown | | + + + + + | Yina Peterson | ECON | Unknown | | + + + + + | Leatha Casillas | ECON | Unknown | | + + + + + Care Team Providers + +------+ + | Care Appeals Coordinator Name | Role | Phone | + +------+ + PCP | Unavailable | + +------+ + Reason for Visit +--------+ + | Reason | Comments | +--------+ + | Other | Admission Records 06/20/2019-06/22/2019- [facility] . | +--------+ + Encounter Details +--------+ + + + + | Date | Type | Department | Care Team | Description | +--------+ + + + + | 06/27/ | Documentati | [facility] | Tabatha Patel, | Other (Admission | | 2019 | on | INFECTIOUS DISEASE | Baker Test | Records | | | | [address] | | 06/20/2019- | | | | [place] [place] | [facility] [address] | | [facility] . ) | | | | [phone] | | | +--------+ + + + [...] as of this encounter Progress Tabatha [place] Baker Test - 06/27/2019 10:44 AM PDTReceived records from [facility]. For patient admission from 06/20/2019-06/22/2019. Records were sent to scan. Yoko CMA. documen rich in this encounter Plan of Treatment Not on filedocumented as of this encounter Visit Diagnoses Not on filedocumented in this encounter"
--- OUTSIDE RECORDS SUMMARY | ~2019-07-27 | XMS | Clinical Summary ---
Demographics + + + | Address | [address] | | | [place] [address] | + + + | Home Phone [...] + | Author | [facility] | | | and [place] | + + + | Organization | [facility] | | | and [place] | + + + | Address | Unknown | + + + | Phone | Unavailable | + + + Support + + + + + | Name | Relationship | Address | Phone | + + + + + | India Campos | ECON | [address] | | | | | [place], [place] | | | | | [address] | | + + + + + | Yina La | ECON | Unknown | | + + + + + | Yina Peterson | ECON | Unknown | | + + + + + | Leatha Casillas | ECON | Unknown | | + + + + + Care Team Providers + +------+ + | Care Bartender Helper Name | Role | Phone | + +------+ + | Renato villarreal OIL PRODUCER | PCP | | + +------+ + [...] | mastectomy L Oct 19 with chemo [facility] | | | | [...] | | 2018 | on | | Writer Editor | Records | | | | | | 06/20/2019- | | | | | | 9- [facility]'s | | | | | [...] Coordination | | 2018 | | | Writer Editor | (Patient Timeline - | | | [...] Infection of | 2018 | | | 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 | | | | [...] Infectious Diseases | Carlos Jansen, | Referral ([facility] | | 2018 | on | | MD | [facility] | | | | | | [...] | 2019 | | | | 4 ([facility]); ESRD (end | | | | | | stage renal disease) | | | | | | on dialysis ([facility]); | | | | | | Hypertensive | | | | | | urgency, malignant; | | | | | | Anemia in chronic | | | | | | kidney disease, on | | | | | | chronic dialysis | | | | | | ([facility]); Essential | | | | | | hypertension; | | | | | | Osteomyelitis of | | | | | | thoracic region | | | | | | ([facility]); 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, 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 | | | | | | (pyogenic), thoracic | | | | | | region ([facility]); | | | | | | Osteomyelitis of | | | | | | thoracic vertebra | | | | | | ([facility]) | +--------+ + + + + | [...] | | | | | | dialysis ([facility]) | | | | [...] | | | | | | dialysis ([facility]) | +--------+ + + + + | [...] | + + + + | INFLUENZA, [id number], | 08/28/2009 | | | UNSPECIFIED | [...] | Right: | CATIA | | | [id number] | | 6.5x85mm - | | Hip | MEDICAL - | | | S / / | | [id number]: Qty: 2 | | | STRY | | | | | on 12/04/2018 by Ga | | | | | | | | Scott John MD at [facility] | | | | | | | | [facility] | | | | | | | + +-------+--------+ +--------+--------+--------+ | Screw Asnis 3 Ti 20mm | Screw | Right: | CATIA | | | [id number] | | 6.5x90mm - | | Hip | MEDICAL - | | | S / / | | [id number]: Qty: 1 | | | STRY | | | | | on 12/04/2018 by Ga, | | | | | | | | Scott John MD at [facility] | | | | | | | | [facility] | | | | | | | [...] section. | | | | | region ([facility]) | | | | [...] section. | | | | | region ([facility]) | | | | [...] section. | | | | | region ([facility]) | | | | | | Osteomyelitis of | | | | | | thoracic vertebra | | | | | | ([facility]) | | + +--------+ + + + | SEDIMENTATION RATE | Routin | 05/18/2019 | Infection of | Results for this | | | e | 3:45 PM | intervertebral disc | procedure are in the | | | | PDT | (pyogenic), thoracic | results section. | | | | | region ([facility]) | | | | | | Osteomyelitis of | | | | | | thoracic vertebra | | | | | | ([facility]) | | + +--------+ + + + | C-REACTIVE PROTEIN | Routin | 05/18/2019 | Infection of | Results for this | | | e | 3:45 PM | intervertebral disc | procedure are in the | | | | PDT | (pyogenic), thoracic | results section. | | | | | region ([facility]) | | | | | | Osteomyelitis of | | | | | | thoracic vertebra | | | | | | ([facility]) | | + +--------+ + + + | CULTURE, BLOOD | Routin | 05/18/2019 | Infection of | Results for this | | | e | 3:08 PM | intervertebral disc | procedure are in the | | | | PDT | (pyogenic), thoracic | results section. | | | | | region ([facility]) | | | | | | Osteomyelitis of | | | | | | thoracic vertebra | | | | | | ([facility]) | | + [...] recent of 5 results within the ti nh period is included. + + + + + + | Component | Value | Ref Range | Performed | Pathologist | | | | | At | Signature | + + + + + + | ESR | 53 (H)Comment: Testing | 0 - 30 mm/Hr | REFERENCE | | | | performed at [facility];[address] | | LAB | | | | [place] | | [facility] | | | | [address];[place] [address] | | LABORATORY | | + + + + + + + + | Specimen | + + | Blood | + + + + + + + | Performing | Address | City/State/Zipcode | Phone Number | | Organization | | | | + + + + + | REFERENCE LAB | [address] [place] [address] | [place] [address] | [phone] | | [facility] | Blvd[address] | | | | LABORATORY | | | | + + + + + | REFERENCE LAB | [address] [place] [address] | [place] [address] | | | [facility] | Blvd. | | | | LABORATORY | | | | + + + + + C-Reactive Protein (06/13/2019 3:12 PM PDT)Only the most recent of 4 results within the ti nh period is included. + + + + + + | Component | Value | Ref Range | Performed | Pathologist | | | | | At | Signature | + + + + + + | CRP | 1.0 (H)Comment: Testing | <0.5 mg/dL | REFERENCE | | | | performed at [facility];[address] | | LAB | | | | [place] | | [facility] | | | | [address];[place] [address] | | LABORATORY | | + + + + + + + + | Specimen | + + | Blood | + + + + + + + | Performing | Address | City/State/Zipcode | Phone Number | | Organization | | | | + + + + + | REFERENCE LAB | [address] [place] [address] | [place] [address] | [phone] | | [facility] | Blvd. | | | | LABORATORY | | | | + + + + + | REFERENCE LAB | [address] [place] [address] | [place] [address] | | | [facility] | Blvd. | [...] (H) | 70 - 109 mg/dL | [facility] | | | POC | | | [facility] | | | | | | MEDICAL | | | | | | CENTER - | | | | | | LABORATORY | | + +---------+ + + + + + | Specimen | + + | Blood | + + + + + + + | Performing | Address | City/State/[facility] | Phone Number | | Organization | | | | + + + + + | [facility] | [address] | [place] | [phone] | | [facility] | | [address] | | | - LABORATORY | | [...] 4.14 (H) | 0.55 - 1.02 | [facility] | | | | | mg/dL | [facility] | | | | | | MEDICAL | | | | | | CENTER - | | | | | | LABORATORY | | + + + + + + | eGFR if not | 11 (L)Comment: | >=60 | [facility] | | | | GLOMERULAR FILTRATION | mL/min/1.73m2 | [facility] | | | MICRONESIAN | RATE,ESTIMATED | | MEDICAL | | | | mL/min/1.60r1Ltfo than | | CENTER - | | [...] [address] | [place] | [phone] | | [facility] | | [address] | | | - LABORATORY | | [...] [address] | [place] | [phone] | | [facility] | | [address] | | | - LABORATORY | | [...] [address] | [place] | [phone] | | [facility] | | [address] | | | - LABORATORY | | [...] + | [facility] | [address] | [place] | [phone] | | [facility] | | [address] | | | - LABORATORY | | [...] [address] | [place] | [phone] | | [facility] | | [address] | | | - LABORATORY | | [...] Performed at: 02 - Liz [facility] [address] [facility], | REFERENCE LAB | | [place], [place] [id number] Research Pharmacist: Violette Mcconnell MD, Phone: | [facility] | | [phone] | | + + + + + + + + | Performing | Address | City/State/Zipcode | Phone Number | | Organization | | | | + + + + + | REFERENCE LAB | [address] | [place] [address] | [phone] | | [facility] | Drive [...] + | Performed at: 01 - Liz [place] [address], | REFERENCE LAB | | [place], [place] [id number] Research Pharmacist: Ernie Lee MD, Phone: | [facility] | | [phone] | | + + + + + + + + | Performing | Address | City/State/Zipcode | Phone Number | | Organization | | | | + + + + + | REFERENCE LAB | [address] | [place] [address] | [phone] | | [facility] | Drive [...] + + | Performed at: 01 - [facility] [place] [address], | REFERENCE LAB | | [place], [place] [id number] Research Pharmacist: Ernie Lee MD, Phone: | [facility] | | [phone] Performed at: 02 - [address] | | | [place] [id number] Research Pharmacist: Violette Mcconnell MD, | | | Phone: [phone] | | + + + + + + + + | Performing | Address | City/State/Zipcode | Phone Number | | Organization | | | | + + + + + | REFERENCE LAB | [address] | [place] [address] | [phone] | | [facility] | Kaitlyn [...] + | [facility] | [address] | [place] | [phone] | | [facility] | | [address] | | | - LABORATORY | | [...] + | [facility] | [address] | [place] | [phone] | | [facility] | | [address] | | | - LABORATORY | | [...] [address] | [place] | [phone] | | [facility] | | [address] | | | - LABORATORY | | [...] [address] | [place] | [phone] | | [facility] | | [address] | | | - LABORATORY | | [...] + | [facility] | [address] | [place] | [phone] | | [facility] | | [address] | | | - LABORATORY | | [...] [facility] | [address] | [place] | [phone] | | [facility] | | [address] | | | - LABORATORY | | [...] | this study were reported by the [facility] radiologist on | | | May [...] of this study were reported by the [facility] | | radiologist on May 21, [...] preparation was | | | performed by [employer] [address] | | | [place] [address] and [employer], [place] [address] | | | [place] [address]. Professional interpretation was performed | | | by [employer] - [facility] - [address] | | | [place] [address] (Edger Automatic: Alen Simpson | | | ; [facility]#:[id number]).8 Diagnostician: Darcie López M.S., | | | CT(ASCP), [facility] Bar Host/Hostess Diagnostician: Alen Restrepo | | | Calvin [...] [address] | [place] | [phone] | | [facility] | | [address] | | | - LABORATORY | | [...] St | [place] | | | [facility] | | [address] | | | - BLOOD BANK | [...] + | [facility] | [address] | [place] | [phone] | | [facility] | | [address] | | | - LABORATORY | | [...] | | | | | | [employer] | | | | | [...] + | [facility] | [address] | [place] | [phone] | | [facility] | | [address] | | | - LABORATORY | | [...] [address] | [place] | [phone] | | [facility] | | [address] | | | - LABORATORY | | [...] [address] | [place] | [phone] | | [facility] | | [address] | | | - LABORATORY | | [...] + | [facility] | [address] | [place] | [phone] | | [facility] | | [address] | | | - LABORATORY | | [...] | | | FILTRATION | mL/min/1.73m2 | [facility] | | | MICRONESIAN | RATE,ESTIMATED | | MEDICAL | | | | mL/min/1.58v9Xajv than | | CENTER - | | [...] [address] | [place] | [phone] | | [facility] | | [address] | | | - LABORATORY | | [...] [address] | [place] | [phone] | | [facility] | | [address] | | | - LABORATORY | | [...] | chromogenic agar method. | | [facility] | [...] + | [facility] | [address] | [place] | [phone] | | [facility] | | [address] | | | [...] | | REFERENCE | | | | [facility];[address] [facility] | | LAB | | | | Blvd;[place] | | [facility] | | | | [id number]: Testing | | LABORATORY | | | | performed at [facility], [address] | | | | [address], | | | | | | [place] [address] | | | | + + + + + + + + | Specimen | + + | | + + + + + + + | Performing | Address | City/State/Zipcode | Phone Number | | Organization | | | | + + + + + | REFERENCE LAB | [address] [place] [address] | [place] [address] | [phone] | | [facility] | Blvd. | | | | LABORATORY | | | | + + + + + | REFERENCE LAB | [address] [place] [address] | [place] [address] | | | [facility] | Blvd. | [...] | | | | | | MDRD IDFL traceable | | | | | | equation.Testing | | | | | | performed at [facility];[address] | | | | | | [facility] | | | | | | Blvd;[place] [address] | | | | | | | | | | + + + + + + + + | Specimen | + + | Blood | + + + + + + + | Performing | Address | City/State/Zipcode | Phone Number | | Organization | | | | + + + + + | REFERENCE LAB | [address] [facility] | [place] [address] | [phone] | | [facility] | Blvd[address] | | | | LABORATORY | | | | + + + + + | REFERENCE LAB | [address] | [place] [address] | | | [facility] | Blvd[address] | [...] | | LAB | | | | Blvd;[place], [place] | | [facility] | | | | [id number]: Testing | | LABORATORY | | | | performed at [facility], [address] | | | | [address], | | | | | | [place] [address] | | | | + + + + + + + + | Specimen | + + | Blood - Structure of | | antecubital vein | | (body structure) | + + + + + + + | Performing | Address | City/State/Zipcode | Phone Number | | Organization | | | | + + + + + | REFERENCE LAB | [address] [place] [address] | [place] [address] | [phone] | | [facility] | Blvd. | | | | LABORATORY | | | | + + + + + | REFERENCE LAB | [address] [place] [address] | [place] [address] | | | [facility] | Blvd. [...] +--------+ +---------+--------+ | MEDICARE | MEDICA | [id number] | 04/13/20 | [phone] | | Medica | | | RE | | 11-Pre | 5 | | re | | | PART A | | sent | | | | | | AND B | | | | | | + +--------+ +--------+ +---------+--------+ | MEDICARE | MEDICA | [id number] | 04/13/20 | [phone] | | Medica | | | RE | | 11-Pre | 5 | | re | | | PART A | | sent | | | | | | AND B | | | | | | + +--------+ +--------+ +---------+--------+ | MEDICAID [place] | MEDICA | [id number] | 03/13/20 | [phone] | | Medica | | | ID [place] | | 17-Pre | 2 | | id | | | PLUS | | sent | | | | + +--------+ +--------+ +---------+--------+ | [facility] | IHS | [id number] | | | | Indemn | | [...] Person | Self | [birth year] | [address] | | | al/Fam | | 1945 | [phone] | [place] [address] | | | natali | | | 7 (Home) | | | | | | | [phone] | | | | | | | 0 (Work) | | + +--------+ +--------+ + + | Ara Campos | Person | Self | [birth year] | [address] | | | al/Fam | | 1945 | [phone] | [place] [address] | | | natali | | | 7 (Home) | | | | | | | [phone] | | | | | | | 0 (Work) | | + +--------+ +--------+ + + Advance Directives + + + + + | Type | Date Recorded | Patient | Explanation | | | | Manager Revenue | | + + + + + | Power of | | | | | Architecture Faculty Member | | | | + + + [...]
--- OUTSIDE RECORDS SUMMARY | ~2019-07-27 | XMS | Encounter Summary ---
Demographics + + + | Address | [address] | | | [place] [address] | + + + | Home Phone [...] | [facility] | | | and [place] | + + + | Organization | [facility] | | | and [place] | + + + | Address | Unknown | + + + | Phone | Unavailable | + + + Support + + + + + | Name | Relationship | Address | Phone | + + + + + | India Tilley | ECON | [address] | | | | | [place], [place] | | | | | [address] | | + + + + + | Yina La | ECON | Unknown | | + + + + + | Yina Peterson | ECON | Unknown | | + + + + + | Leatha Casillas | ECON | Unknown | | + + + + + Care Team Providers + +------+ + | Care Metrology Specialist Name | Role | Phone | + +------+ + PCP | Unavailable | + +------+ + Encounter Details +--------+ + + + + | Date | Type | Department | Care Team | Description | +--------+ + + + + | 09/25/ | Hospital | [facility] | [facility]ly [facility], | | | 2007 - | Encounter | [facility] | Venkatesh Forte MD [address] | | | | [place] [address] | [facility] | | | 10/13/ | | [place] | [place] [address] | | | 2007 | | [address] | [phone] | | | | | [phone] | | | +--------+ + + + [...]
--- OUTSIDE RECORDS SUMMARY | ~2019-07-27 | XMS | Encounter Summary ---
Demographics + + + | Address | [address] | | | [place] [address] | + + + | Home Phone [...] Author | [facility] | | | and Kamaljitana | + + + | Organization | [facility] | | | and [place] | + + + | Address | Unknown | + + + | Phone | Unavailable | + + + Support + + + + + | Name | Relationship | Address | Phone | + + + + + | India Campos | ECON | [address] | | | | | [place], [place] | | | | | [address] | | + + + + + | Yina La | ECON | Unknown | | + + + + + | Yina Peterson | ECON | Unknown | | + + + + + | Leatha Casillas | ECON | Unknown | | + + + + + Care Team Providers + +------+ + | Care Customer Solutions Teammate Name | Role | Phone | + [...] + + | 10/01/ | Hospital | [facility] | Olegario Peng, | Hypertensive | | 2018 - | Encounter | [facility] | [address] | emergency; Chest | | | | [address] [place] | [place] | pain, unspecified | | 10/06/ | | [place] [address] | [address] | type; Leg swelling; | | 2017 | | [phone] | | CKD (chronic kidney | | | | | Rupal Laguna MD | disease), stage IV | | | | | [address] | (HCC); Type 2 | | | | | [place] | diabetes mellitus | | | | | [address] | with stage 4 chronic | | | | | | kidney disease, | | | | | Nikhil Vega, | with long-term | | | | | MD Mayelin [address] | current use of | | | | | [address] [place] | insulin (HCC); | | | | | [place] [address] | Anemia of chronic | | | | | [phone] | renal failure, stage | | | [...] Keys MD - 10/06/2017 10:38 AM PST [facility] DISCHARGE SUMMARY Pt. Name/Age/: Estefani Campos 72 [...] Specialty: Nephrology Why: at 4:30PM, at the [facility], [address], [place], [place], ([phone]). Contact information: [address] [facility], [facility] [address] Located within [facility] [address] Santos Stephenson MD, FACS In 2 weeks. Specialties: General Surgery, Vascular Surgery Why: Dr. Stephenson's Office, the Vascular Surgeon, will Call you with the time.* Contact information: [address] [facility] [address] RESULTS: Narrative TECHNIQUE: Renal and [...] pressures were in the 230 range at [facility] and she received IV hydralazine and [...] signed by: Edison Keys MD, 10/06/2017 10:48 [facility] Portions of this chart may have been created with [employer] voice recognition software. Occasi onal wrong-word or [...] your Appt. with Dr. Muñoz at the [facility]. 2. Dr. Stephenson Office, the Vascular Surgeon, [...] to come to the [facility] [place], [place] for follow up on 11/08/17. We sent a Referral to Dr. Stephenson's Office for an outpt appt. for an AVF construction in the very near future. They will call her with the Appt. time per [facility] policy. Will attempt to wait until AVF is mature before starting outpt HD, as long as uremic sympto ms do not intervene. Thanks. [facility] Edison Andrea M D - 10/05/2017 2:20 PM PST [facility] Hospitalist Progress Note Estefani Campos [...] that she should be followed by a palletiser operator night discussed this issue with her. I [...] as outlined above. Edison Keys 10/05/2017 14:20 [facility] Portions of this chart may have been created with [employer] voice recognition software. Occasi onal wrong-word or sound-alike substitutions may have occurred due to the inherent mckeon itations of voice recognition software. Please read the chart carefully and recognize, using context, where these substitutions have occurred Mayelin Sanders MD - 10/04/2017 5:37 PM PST [facility] [place] HOSPITALIST PROGRESS NOTE Patient: Estefani Campos : 1945: Age: 72 y.o. MedRec: [id number] Admission date: 10/01/2017 Hospital day # : [...] Procedure Component Value Units Date/Time Culture, MRSA [[id number]] Collected: 10/02/17 0803 Order Status: Completed Lab [...] Code: FULL Mayelin Vega MD 10/04/2017 17:38 [facility] Portions of this chart may have been created with [employer] voice recognition software. Occasi onal wrong-word or [...] performed and electronically signed by Puja Whitman, Optical Engineering Manager 2017 10:09 Electronically signed by: Ta Ronquillo RPH 10/04/2017 10:14 Diann Sanders MD - 10/03/2017 12:46 PM PST [facility] [place] HOSPITALIST PROGRESS NOTE Patient: Estefani Campos : 1945: Age: 72 y.o. MedRec: [id number] Admission date: 10/01/2017 Hospital day # : [...] Procedure Component Value Units Date/Time Culture, MRSA [[id number]] Collected: 10/02/17 0803 Order Status: Completed Lab [...] Code: FULL Mayelin Vega MD 10/03/2017 12:46 [facility] Portions of this chart may have been created with [employer] voice recognition software. Occasi onal wrong-word or sound-alike substitutions may have occurred due to the inherent mckeon itations of voice recognition software. Please read the chart carefully and recognize, using context, where these substitutions have occurred ayelin Engle MD - 10/02/2017 9:13 AM PSTFormatting of this note might be different from the or iginal. [facility] [place] HOSPITALIST PROGRESS NOTE Patient: Estefani Campos : 1945: Age: 72 y.o. MedRec: [id number] Admission date: 10/01/2017 Hospital day # : [...] ECGs available Confirmed by KEN ELLISON MD ([id number]) on 10/02/2017 7:49:20 AM Lipid Panel Collection [...] Procedure Component Value Units Date/Time Culture, MRSA [[id number]] Collected: 10/02/17802 Order Status: Sent Lab Status: [...] is in the process of [facility]. Additionally, she reports being homeless up until [...] with tele Mayelin Vega MD 10/02/2017 9:13 [facility] Portions of this chart may have been created with [employer] voice recognition software. Occasi onal wrong-word or [...] + | [facility] | [address] | [place] | [phone] | | [facility] | | [address] | | | - LABORATORY | | [...] [address] | [place] | [phone] | | [facility] | | [address] | | | - LABORATORY | | [...] mL/min/1.73m2 | [facility] | | | [place] | | | [...] [address] | [place] | [phone] | | [facility] | | [address] | | | - LABORATORY | | [...] + | [facility] | [address] | [place] | [phone] | | [facility] | | [address] | | | - LABORATORY | | [...] | | POC | | | [facility] | | | | | | [...] ST. | [address] | [place] | [phone] | | [facility] | | [address] | | | - LABORATORY | | [...] [address] | [place] | [phone] | | [facility] | | [address] | | | - LABORATORY | | [...] + | [facility] | [address] | [place] | [phone] | | [facility] | | [address] | | | - LABORATORY | | [...] + | [facility] | [address] | [place] | [phone] | | [facility] | | [address] | | | - LABORATORY | | [...] ST. | [address] | [place], [place] | [phone] | | [facility] | | [address] | | | - LABORATORY | | [...] [address] | [place] | [phone] | | [facility] | | [address] | | | - LABORATORY | | [...] [address] | [place] | [phone] | | [facility] | | [address] | | | - LABORATORY | | [...] + | [facility] | [address] | [place] | [phone] | | [facility] | | [address] | | | - LABORATORY | | [...] ST. | [address] | [place], [place] | [phone] | | [facility] | | [address] | | | - LABORATORY | | [...] [address] | [place] | [phone] | | [facility] | | [address] | | | - LABORATORY | | [...] 3.11 (H) | 0.60 - 1.30 | [facility] | | | | | mg/dL | [facility] | | | | | | MEDICAL | | | | | | CENTER - | | | | | | LABORATORY | | + + + + + + | eGFR if not | 15 (L)Comment: | >=60 | [facility] | | | | GLOMERULAR FILTRATION | mL/min/1.73m2 | [facility] | | | [place] | RATE,ESTIMATED | | MEDICAL | | | | mL/min/1.55f5Krah than | | CENTER - | | [...] [address] | [place] | [phone] | | [facility] | | [address] | | | - [address] | [place] | [phone] | | [facility] | | [address] | | | - LABORATORY | | [...] [address] | [place] | [phone] | | [facility] | | [address] | | | - LABORATORY | | [...] + | [facility] | [address] | [place] | [phone] | | [facility] | | [address] | | | - LABORATORY | | [...] + | [facility] | [address] | [place] | [phone] | | [facility] | | [address] | | | - [...] [address] | [place] | [phone] | | [facility] | | [address] | | | - LABORATORY | | [...] [address] | [place] | [phone] | | [facility] | | [address] | | | - LABORATORY | | [...] | | MEDICAL | | | | mL/min/1.29i5Vjhv than | | CENTER - | | [...] [address] | [place] | [phone] | | [facility] | | [address] | | | - LABORATORY | | [...] [address] | [place] | [phone] | | [facility] | | [address] | | | - LABORATORY | | [...] [address] | [place] | [phone] | | [facility] | | [address] | | | - LABORATORY | | [...] 3.13 (H) | 0.60 - 1.30 | [facility] | | | | | mg/dL | [facility] | | | | | | MEDICAL | | | | | | CENTER - | | | | | | LABORATORY | | + + + + + + | eGFR if not | 15 (L)Comment: | >=60 | [facility] | | | | GLOMERULAR FILTRATION | mL/min/1.73m2 | [facility] | | | [place] | RATE,ESTIMATED | | MEDICAL | | | | mL/min/1.64z4Rjwy than | | CENTER - | | [...] + | [facility] | [address] | [place] | [phone] | | [facility] | | [address] | | | - LABORATORY | | [...] ST. | [address] | [place], [place] | [phone] | | [facility] | | [address] | | | - LABORATORY | | | | + + + + + VAS Lower Extremity Venous Bilateral (10/02/2017 10:07 AM [facility]) + + | Specimen | [...] 454 R | | | Patient Number [id number] Date of Study | | | 10/02/2017 Visit Number [id number] Accession | | | [id number] Referring Physician LOY RUPAL Number | | | Date of 1945 Supervisor Advice | | | WENDY HUDSON | | | CEASAR Age 72 year(s) | | | Interpreting CLAUDIA HUGHES MD | | | Pet Adoption Counselor Gender | | | Female Nurse | | | Stress Well Digger Procedure Type of Study TTE procedure: ECHO [...] | 71.7 ml | | | EF Kcyvzsnfi57% Left Ventricle Diastolic Dimension: 5.37 cm | [...] Volume: 71.7 ml | | | EF Qkxvntuuq80% | | | | | | Left [...] Jordan Results In - 10/02/2017 9:41 AM [facility] Transthoracic Echocardiography Report | | (TTE) Demographics Patient Name ANDRES BULLOCK Room Number 454 | | R Patient Number [id number] Date of Study 10/02/2017 Visit Number | | [id number] Referring Physician LOY MATA Number | | Date of 1945 Supervisor Advice WENDY BECCA | | [facility] Age 72 year(s) Interpreting | | CLAUDIA HUGHES MD Pet Adoption Counselor Gender | | Female Nurse Stress TechnicianProcedureType [...] LA Volume: 71.7 ml EF | | Slquxrpqf13% Left Ventricle Diastolic Dimension: 5.37 cm Septum [...] LA Volume: 71.7 ml | | EF Uwuupijvo41% | | | | Left Ventricle | [...] [address] | [place] | [phone] | | [facility] | | [address] | | | - LABORATORY | | [...] + | [facility] | [address] | [place] | [phone] | | [facility] | | [address] | | | - LABORATORY | | [...] [address] | [place] | [phone] | | [facility] | | [address] | | | - LABORATORY | | [address] | [place] | [phone] | | [facility] | | [address] | | | - LABORATORY | | [...] | | | | | | [employer] | | | | | [...] [address] | [place] | [phone] | | [facility] | | [address] | | | - LABORATORY | | [...] ST. | [address] | [place], [place] | [phone] | | [facility] | | [address] | | | - LABORATORY | | [...] 3.03 (H) | 0.60 - 1.30 | [facility] | | | | | mg/dL | [facility] | | | | | | MEDICAL | | | | | | CENTER - | | | | | | LABORATORY | | + + + + + + | eGFR if not | 15 (L)Comment: | >=60 | [facility] | | | | GLOMERULAR FILTRATION | mL/min/1.73m2 | [facility] | | | [place] | RATE,ESTIMATED | | MEDICAL | | | | mL/min/1.91n6Tkeo than | | CENTER - | | [...] + | [facility] | [address] | [place] | [phone] | | [facility] | | [address] | | | - LABORATORY | | [...] + | [facility] | [address] | [place] | [phone] | | [facility] | | [address] | | | - LABORATORY | | [...] | | | | KEN ELLISON MD ([id number]) | | | | | | on [...] [address] | [place] | [phone] | | [facility] | | [address] | | | - LABORATORY | | [...] | | | Dictated and Signed by: Salvaotre Nunez MD | | Electronically signed: 10/02/2017 [...] | | | | | | [employer] | | | | | [...] ST. | [address] | [place], [place] | [phone] | | [facility] | | [address] | | | - LABORATORY | | [address] | [place] | [phone] | | [facility] | | [address] | | | - LABORATORY | | [...] [address] | [place] | [phone] | | [facility] | | [address] | | | - LABORATORY | | [...] (H) | 7 - 18 mg/dL | [facility] | | | | | | [facility] | | | | | | MEDICAL | | | | | | CENTER - | | | | | | LABORATORY | | + + + + + + | Creatinine | 3.05 (H) | 0.60 - 1.30 | [facility] | | | | | mg/dL | [facility] | | | | | | MEDICAL | | | | | | CENTER - | | | | | | LABORATORY | | + + + + + + | eGFR if not | 15 (L)Comment: | >=60 | [facility] | | | | GLOMERULAR FILTRATION | mL/min/1.73m2 | [facility] | | | [place] | RATE,ESTIMATED | | MEDICAL | | | | mL/min/1.22y3Zyyf than | | CENTER - | | [...] + | [facility] | [address] | [place] | [phone] | | [facility] | | [address] | | | - LABORATORY | | [...] ST. | [address] | [place] | [phone] | | [facility] | | [address] | | | - LABORATORY | | [...] | | | | First dose on [facility] 10/05/17 at 1445 | | AM [...] | | | | | NPO, Daytime [id number] Use NIGHT | | | | | | | DOSE for doses scheduled: | | | | | | | HS, 3AM, Nighttime 5095-6909, | | | | | | + [...] DAILY, First dose | | | on [facility] 10/07/17 at 0900 | | + +---+ | | | + +---+ + +-------+ +-------+---+---+ | losartan (COZAAR) tablet 50 mg | Given | 10/05/19 | 50 mg | | | | 50 mg, Oral, 2 TIMES DAILY, | | 18 8:27 | | | | | First dose on [facility] 10/03/17 at 0930 | | AM PST [...]
--- OUTSIDE RECORDS SUMMARY | ~2019-07-27 | XMS | Encounter Summary ---
Demographics + + + | Address | [address] | | | [place] [address] | + + + | Home Phone [...] | [facility] | | | and Kamaljitana | + + + | Organization | [facility] | | | and [place] | + + + | Address | Unknown | + + + | Phone | Unavailable | + + + Support + + + + + | Name | Relationship | Address | Phone | + + + + + | India Tilley | ECON | [address] | | | | | [place], [place] | | | | | [address] | | + + + + + | Yina La | ECON | Unknown | | + + + + + | Yina Peterson | ECON | Unknown | | + + + + + | Leatha Casillas | ECON | Unknown | | + + + + + Care Team Providers + +------+ + | Care Staff Assistant Name | Role | Phone | [...] Hemodialysis | | | | [address] | [place] [address] | Catheter Placement | | | | [place], [place] | [phone] | | | | | [address] | | | | | | [phone] | | | +--------+---------+ + + + [...] might be differ ent from the original. [place], [place] HOSPITALIST DISCHARGE SUMMARY Pt. Name/Age/: Estefani [...] insulin glargine 100 units/mL injection (vial) aka: [facility] COURSE: Please refer to the H&P for full details and the most recent rounding rounding (progress) n ote. In short this is a 72-year-old woman, history of hypertension, diabetes mellitus type 2 on insulin, chronic kidney disease of stage V, CAD, who presented to [facility] after be ing found down in her [...] time of arrival to send [facility], patient was feeling much better and was [...] n/a DISPOSITION AND DISCHARGE INSTRUCTIONS: Follow-up Information [facility] On 11/10/2017. Why: 1:00pm Contact information: [address] [place] [id number] Follow up In 3 days. Francisca Womack PA-C In 3 days. Specialty: Internal Medicine Contact information: [address] [place] [address] Hemodialysis In 1 day. Contact information: Appointment at 1:30 PM Condition: Patient being discharged with condition improved and stable Diet: renal, carbohydrate controlled Greater than 30 minutes were spent on discharge and coordination of post-hospital care. Electronically signed by: Mayelin Vega MD, 11/09/2017 11:06 [facility] Portions of this chart may have been created with [employer] voice recognition software. Occasi onal wrong-word or sound-alike substitutions may have occurred due to the inherent mckeon itations of voice recognition software. Please read the chart carefully and recognize, using context, where these substitutions have occurred documented in this encounter Discharge Instructions AttachmentsThe following attachments cannot be sent through Care Everywhere.Balancing Calci um and Phosphorus, Kidney Disease (Nigerien)Hemodialysis (Nigerien)documented in this encounte r Medications at Time [...] Muñoz, DO - 11/09/2017 6:18 PM PST [facility] [address] [place] [address] PROGRESS NOTE Pt. Name/Age/: Estefani Tilley 72 y.o. 1945 Med. Record Number: [id number] Date of admission: 11/01/2017 NEPHROLOGY HPI - [...] and she agreed. Nikki was raised in [place] and in [place], [place]. She has two brothers and two sisters, and h ad 4 children of her own. Her oldest child, daughter, two months ago. Nikki is gri eving her loss and teared up while talking about her. Her other children live in [place] and one son has been in penitentiary for 23 years. She hasn't seen him since he was arr ested and is hopeful she will get to see him next year, as he is schedule to be released at that time. 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 She has at least 4 ye ars post high school education and studied journalism. In the years prior to care home, she worked at [employer]. Nikki's mother had chronic kidney disease and [...] and picking up and going [place] [facility] [place]. She must plan it out, and that feels antithetical to her nature. Ginger escamilla was present and attentive while she discussed her grief around losing her family member s and her lifestyle, offered supportive genetic counsellor. Chayo Ramirez RN - 11/09/2017 10:00 AM Cam RN arrived at [facility]'s room around 0800 to begin dialysis. [...] note might be different [facility] [place] [facility] PROGRESS NOTE Patient: Estefani Tilley : 1945: Age: 72 y.o. MedRec: [id number] Admission date: 11/01/2017 Hospital day # : [...] mg/m L 0.25 mg [employer] [facility] Oriental Rug Repairer Nora Leo MD [NOV Hold] labetalol (NORMODYNE) [...] nephrology recs -Nephro rec permacath needed for termite control servicer dialysis -continue ferrlecit and Epogen 3. CAD- no signs of ACS, EKG RBBB, trop 0.03 at OSH -Continue aspirin, lipitor 4. Hypothyroidism -TSH WNL -Continue levothyroxine 5. HTN uncontrolled -Continue Labetalol and furosemide -Continue losartan 25 mg daily PPX: HSQ FEN: renal Mayelin Vega 11/08/2017 11:50 [facility] Nora Headley MD - 11/08/2017 10:06 [...] might be different f rom the original. [facility] [place] HOSPITALIST PROGRESS NOTE Patient: Estefani Tilley : 1945: Age: 72 y.o. MedRec: [id number] Admission date: 11/01/2017 Hospital day # : [...] drop 1 drop Both Eyes BID Rupal olmas MD 1 drop at 11/07/17 0840 ondansetron [...] Procedure Component Value Units Date/Time Culture, Blood [[id number]] (Normal) Collected: 11/04/172121 Order Status: Completed Lab Status: Preliminary result Updated: 11/05/17 09 Specimen: Blood from Line Culture No growth: Monitored continually by instrument for 5 days Culture, Blood [[id number]] (Normal) Collected: 11/04/172102 Order Status: Completed Lab [...] Wednesday to determine if permacath needed for termite control servicer dialysis -continue ferrlecit and Epogen 3. CAD- no signs of ACS, EKG RBBB, trop 0.03 at OSH -Continue aspirin, lipitor 4. Hypothyroidism -TSH WNL -Continue levothyroxine 5. HTN uncontrolled -Continue Labetalol and furosemide -restart losartan 25 mg daily PPX: HSQ FEN: renal Mayelin Vega 11/07/2017 12:57 [facility] Cordell Palmer MD - 11/07/2017 9:43 AM PSTFormatting of this note might be different from the maynor rollins [facility] NEPHROLOGY progress note Patient: Estefani Tilley : [...] Darlin Moseley MD Electronically signed: 11/07/2017 9:43 [facility] NEPHROLOGY Olegario Keen M D - 11/06/2017 2:15 PM PST [facility] [place] HOSPITALIST PROGRESS NOTE Patient: Estefani Tilley : 1945: Age: 72 y.o. MedRec: [id number] Admission date: 11/01/2017 Hospital day # : [...] mg 650 mg Oral Q4H PRN Rupal Lagnua MD albumin 25% IVPB 12.5 g 12.5 [...] Procedure Component Value Units Date/Time Culture, Blood [[id number]] (Normal) Collected: 11/04/172121 Order Status: Completed Lab Status: Preliminary result Updated: 11/05/17930 Specimen: Blood from Line Culture No growth: Monitored continually by instrument for 5 days Culture, Blood [[id number]] (Normal) Collected: 11/04/172102 Order Status: Completed Lab Status: Preliminary result Updated: 11/05/17 09 Specimen: Blood from Line Culture No growth: Monitored continually by instrument for 5 days Culture, Blood [[id number]] (Normal) Collected: 11/03/17 1506 Order Status: Completed [...] to determ ine if permacath needed for skilled nursing dialysis CAD no signs of ACS, EKG [...] Oral BID PRN Olegario Peng 11/06/2017 14:15 [facility] Darlin Palmer M D - 11/06/2017 9:10 AM PST [facility] NEPHROLOGY progress note Patient: Estefani Tilley : [...] Continuous Infusions: Heparin Infusion 200 Units/hr (11/06/17 8327) PRN Meds:acetaminophen, albumin, albuterol, bisacodyl, Hypoglycemia Management [...] Darlin Moseley MD Electronically signed: 11/06/2017 9:11 [facility] NEPHROLOGY Olegario Keen M D - 11/05/2017 2:08 PM PST [facility] [place] HOSPITALIST PROGRESS NOTE Patient: Estefani Tilley : 1945: Age: 72 y.o. MedRec: [id number] Admission date: 11/01/2017 Hospital day # : [...] mcg 75 mcg Oral QAM AC Rupal aLguna MD 75 mcg at 11/05/17 0637 lidocaine [...] Procedure Component Value Units Date/Time Culture, Blood [[id number]] (Normal) Collected: 11/04/172 Order Status: Completed Lab Status: Preliminary result Updated: 11/05/17 0931 Specimen: Blood from Line Culture No growth: Monitored continually by instrument for 5 days Culture, Blood [[id number]] (Normal) Collected: 11/04/17 2103 Order Status: Completed Lab Status: Preliminary result Updated: 11/05/17 0911 Specimen: Blood from Line Culture No growth: Monitored continually by instrument for 5 days Culture, Blood [[id number]] (Normal) Collected: 11/03/17 1506 Order Status: Completed Lab Status: Preliminary result Updated: 11/04/17 0311 Specimen: Blood from Peripheral Blood Culture No growth: Monitored continually by instrument for 5 days Culture, Blood [[id number]] (Abnormal) Collected: 11/03/17 0812 Order Status: Completed Lab Status: Preliminary result Updated: 11/05/17 0751 Specimen: Blood from Arm, Left Culture Positive Blood Culture (AA) Staphylococcus coagulase negative Comment: Identification and susceptibility to follow. Probable contaminant Gram Stain Result Gram positive cocci in clusters Comment: 2 of 4 bottles positive Culture, Respiratory, Lower, Smear [[id number]] Collected: 11/03/17 0727 Order Status: Completed Lab [...] Oral BID PRN Olegario Peng 11/05/2017 14:08 [facility] Darlin Palmer M D - 11/05/2017 1:53 PM PST [facility] NEPHROLOGY progress note Patient: Estefani Tilley : [...] Darlin Moseley MD Electronically signed: 11/05/2017 13:53 [facility] NEPHROLOGY tGopi rick , DO - 11/04/2017 6:53 PM PST [facility] [address] [place], [place] [id number] PROGRESS NOTE Pt. Name/Age/: Estefani Tilley 72 y.o. 1945 Med. Record Number: [id number] Date of admission: 11/01/2017 NEPHROLOGY HPI - [...] to high Inpt case load here at [facility]. 2. probable pyelonephritis?--Day #3 Ceftriaxone, Day [...] might be different from the origin al. [facility] [place] HOSPITALIST PROGRESS NOTE Patient: Estefani Tilley : 1945: Age: 72 y.o. MedRec: [id number] Admission date: 11/01/2017 Hospital day # : [...] Procedure Component Value Units Date/Time Culture, Blood [[id number]] (Normal) Collected: 11/03/17 1506 Order Status: Completed Lab Status: Preliminary result Updated: 11/04/17 0311 Specimen: Blood from Peripheral Blood Culture No growth: Monitored continually by instrument for 5 days Culture, Blood [[id number]] (Normal) Collected: 11/03/17 0812 Order Status: Completed Lab Status: Preliminary result Updated: 11/03/17 2041 Specimen: Blood from Arm, Left Culture No growth: Monitored continually by instrument for 5 days Culture, Respiratory, Lower, Smear [[id number]] Collected: 11/03/17 0727 Order Status: Completed Lab Status: Preliminary result Updated: 11/03/17 1028 Specimen: Respiratory from Sputum, expectorated Gram Stain Result 3+ White Blood Cells 2+ Epithelial cells 2+ Gram positive cocci 2+ Gram positive bacilli 1+ Hyphael elements Influenza A and B RNA, NAAT [[id number]] (Normal) Collected: 11/02/17 1050 Order Status: Completed Lab Status: Final result Updated: 11/02/17 1125 Specimen: Respiratory from Nares Influenza A PCR Negative Influenza B PCR Negative Culture, Urine [[id number]] Collected: 11/02/17 0740 Order Status: Completed Lab Status: Preliminary result Updated: 11/03/17 1013 Specimen: Urine Culture >100,000 CFU/ml Lactose Fermenting Gram Negative Bacilli Comment: Identification and susceptibility to follow. Culture, Blood [[id number]] (Normal) Collected: 11/02/17 0024 Order Status: Completed Lab Status: Preliminary result Updated: 11/02/17 1241 Specimen: Blood from Peripheral Blood Culture No growth: Monitored continually by instrument for 5 days Culture, Blood [[id number]] (Abnormal) Collected: 11/02/17 0019 Order Status: Completed [...] 15:14 by Edison Short. Narrative: Culture, MRSA [[id number]] Collected: 11/01/172145 Order Status: Completed Lab Status: [...] today. Placed on ISS overnight. Exam Gen Egt - alert, cooperative Head - Normocephalic Eyes [...] in chains -Repeat UA (+), urine culture >558087 GNB lactose fermenting -Continue ceftriaxone started 11/02, [...] Q30 Min PRN Olegario Peng 11/04/2017 7:21 [facility] Nick Aguillon, RN - 0 11/04/2017 1:06 AM PSTDialysis treatment started and Arterial pressures running in the -400s , trouble shooting ineffective, arterial and venous lines switched, pressures now -50s. Shama sarabia is running appropriately at this moment, will continue monitoring. Nick Guallpa Gopi Mckenna DO - 11/03/2017 11:20 AM PST [facility] [address] [place] [address] PROGRESS NOTE Pt. Name/Age/: Estefani Tilley 72 y.o. 1945 Med. Record Number: [id number] Date of admission: 11/01/2017 NEPHROLOGY HPI - [...] Keen MD - 11/03/2017 7:07 AM PST [facility] [place] HOSPITALIST PROGRESS NOTE Patient: Estefani Tilley : 1945: Age: 72 y.o. MedRec: [id number] Admission date: 11/01/2017 Hospital day # : [...] PH UA 6.0 5.0 - 8.0 Specific [place] 1.010 1.001 - 1.030 PROTEIN UA 100 [...] Date/Time Influenza A and B RNA, NAAT [[id number]] (Normal) Collected: 11/02/17 1050 Order Status: Completed Lab Status: Final result Updated: 11/02/17 1125 Specimen: Respiratory from Nares Influenza A PCR Negative Influenza B PCR Negative Culture, Urine [[id number]] Collected: 11/02/17 0740 Order Status: Sent Lab Status: In process Updated: 11/02/17 0758 Specimen: Urine Culture, Blood [[id number]] (Normal) Collected: 11/02/17 0024 Order Status: Completed Lab Status: Preliminary result Updated: 11/02/17 1241 Specimen: Blood from Peripheral Blood Culture No growth: Monitored continually by instrument for 5 days Culture, Blood [[id number]] (Abnormal) Collected: 11/02/17 0019 Order Status: Completed Lab Status: Preliminary result Updated: 11/02/17 1515 Specimen: Blood from Peripheral Blood Culture Positive Blood Culture (AA) Gram Stain Result Gram positive cocci in chains Comment: One of four Blood Culture bottles POSITIVE. Critical Result called to and read b ack by Kristen Irving on 11/02/2017 at 15:14 by Edison Short. Narrative: Culture, MRSA [[id number]] Collected: 11/01/17 2146 Order Status: Sent Lab [...] Oral BID PRN Olegario Peng 11/03/2017 7:08 [facility] oltangela, Ta Restrepo, [facility] - 11/02/2017 3:43 PM PST PHARMACY SERVICES: [...] strength, and directions X Pharmacy list names: [facility] ENGINE OILER (Prescription Monitoring Program) X 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 as: Atorvastatin 20mg 1 tab by mouth nightly 1 tab by mouth every morning Calcium- vitamin d 600-400mg 1 tab by mouth twice daily 1 tab by mouth every morning Duloxetine 30mg DR 1 capsule by mouth daily Patient has not started this medication CELLULAR PHONE REPAIRER, cortés s not filled at pharmacy [id number] 200mg by mouth twice daily 200mg by mouth every morning labetalol 200mg 1 tab by mouth twice daily Patient has not started this medication CELLULAR PHONE REPAIRER, has not filled at pharmacy Best possible CELLULAR PHONE REPAIRER medication list after pharmacy review: Prior to [...] performed and electronically signed by Puja Whitman, Duplicator Punch Operator 2017 15:31 Electronically signed by: Ta Ronquillo [facility] 11/02/2017 15:40 Olegario Keen MD - 11/02/2017 7:21 AM PST [facility] [place] HOSPITALIST PROGRESS NOTE Patient: Estefani Tilley : 1945: Age: 72 y.o. MedRec: [id number] Admission date: 11/01/2017 Hospital day # : [...] Nightly Rupal Laguna MD 20 mg at 1342 bisacodyl (DULCOLAX) suppository 10 mg 10 mg [...] Procedure Component Value Units Date/Time Culture, Blood [[id number]] Collected: 11/02/1723 Order Status: Sent Lab Status: In process Updated: 11/02/1732 Specimen: Blood from Peripheral Blood Culture, Blood [[id number]] Collected: 11/02/1718 Order Status: Sent Lab Status: In process Updated: 11/02/1732 Specimen: Blood from Peripheral Blood Culture, MRSA [[id number]] Collected: 11/01/172145 Order Status: Sent Lab Status: [...] 0.9% Intravenous Continuous Olegario Peng 11/02/2017 7:38 [facility] documented in this e ncounter Plan [...] | | PERMACATH | | PST | ([facility]) | | + +--------+ + + + [...] [address] | [place] | [phone] | | [facility] | | [address] | | | - LABORATORY | | [...] [address] | [place] | [phone] | | [facility] | | [address] | | | - LABORATORY | | [...] [address] | [place] | [phone] | | [facility] | | [address] | | | - LABORATORY | | [...] 2.99 (H) | 0.60 - 1.30 | [facility] | | | | | mg/dL | [facility] | | | | | | MEDICAL | | | | | | CENTER - | | | | | | LABORATORY | | + + + + + + | eGFR if not | 15 (L)Comment: | >=60 | [facility] | | | | GLOMERULAR FILTRATION | mL/min/1.73m2 | [facility] | | | SPANISH | RATE,ESTIMATED | | MEDICAL | | | | mL/min/1.04e2Xdph than | | CENTER - | | [...] [address] | [place] | [phone] | | [facility] | | [address] | | | - LABORATORY | | [...] + | [facility] | [address] | [place] | [phone] | | [facility] | | [address] | | | - LABORATORY | | [...] [address] | [place] | [phone] | | [facility] | | [address] | | | - LABORATORY | | [...] [address] | [place] | [phone] | | [facility] | | [address] | | | - LABORATORY | | [...] + | [facility] | [address] | [place] | [phone] | | [facility] | | [address] | | | - LABORATORY | | [...] [address] | [place] | [phone] | | [facility] | | [address] | | | - LABORATORY | | [...] + | [facility] | [address] | [place] | [phone] | | [facility] | | [address] | | | - LABORATORY | | [...] [facility] | | | SPANISH | RATE,ESTIMATED | | MEDICAL | | | | mL/min/1.03r6Baim than | | CENTER - | | [...] ST. | [address] | [place] | [phone] | | [facility] | | [address] | | | - LABORATORY | | [...] [address] | [place] | [phone] | | [facility] | | [address] | | | - LABORATORY | | [...] | [address] [address] [facility] | [address] | [place] | [phone] | | [facility] | | [address] | | | - LABORATORY | | [...] [address] | [place] | [phone] | | [facility] | | [address] | | | - LABORATORY | | [...] | | POC | | | [facility] | | [...] [address] | [place] | [phone] | | [facility] | | [address] | | | - LABORATORY | | [...] + | [facility] | [address] | [place] | [phone] | | [facility] | | [address] | | | - LABORATORY | | [...] + | [facility] | [address] | [place] | [phone] | | [facility] | | [address] | | | - LABORATORY | | [...] ST. | [address] | [place] | [phone] | | [facility] | | [address] | | | - LABORATORY | | [...] | Basophils | | K/uL | [facility] | | | | | [...] [address] | [place] | [phone] | | [facility] | | [address] | | | - LABORATORY | | [...] (H) | 7 - 18 mg/dL | [facility] | | | | | | [facility] | | | | | | MEDICAL | | | | | | CENTER - | | | | | | LABORATORY | | + + + + + + | Creatinine | 2.24 (H) | 0.60 - 1.30 | [facility] | | | | | mg/dL | [facility] | | | | | | MEDICAL | | | | | | CENTER - | | | | | | LABORATORY | | + + + + + + | eGFR if not | 22 (L)Comment: | >=60 | [facility] | | | | GLOMERULAR FILTRATION | mL/min/1.73m2 | [facility] | | | SPANISH | RATE,ESTIMATED | | MEDICAL | | | | mL/min/1.06o9Adqu than | | CENTER - | | [...] + | [facility] | [address] | [place] | [phone] | | [facility] | | [address] | | | - LABORATORY | | [...] [address] | [place] | [phone] | | [facility] | | [address] | | | - LABORATORY | | [...] [address] | [place] | [phone] | | [facility] | | [address] | | | - LABORATORY | | [...] + | [facility] | [address] | [place] | [phone] | | [facility] | | [address] | | | - LABORATORY | | [...] [address] | [place] | [phone] | | [facility] | | [address] | | | - LABORATORY | | [...] [address] | [place] | [phone] | | [facility] | | [address] | | | - LABORATORY | | [...] [address] | [place] | [phone] | | [facility] | | [address] | | | - LABORATORY | | [...] [address] | [place] | [phone] | | [facility] | | [address] | | | - LABORATORY | | [...] mL/min/1.73m2 | [facility] | | | SPANISH | RATE,ESTIMATED | | MEDICAL | | | | mL/min/1.72h3Nuob than | | CENTER - | | [...] [address] | [place] | [phone] | | [facility] | | [address] | | | - LABORATORY | | [...] [address] | [place] | [phone] | | [facility] | | [address] | | | - LABORATORY | | [...] | [address] [facility] | [address] | [place] | [phone] | | [facility] | | [address] | | | - LABORATORY | | [...] | + + + + + | [facility] [facility] | [address] | [place] | [phone] | | [facility] | | [address] | | | - LABORATORY | | [...] Demographics Patient Name ANDRES | | | [facility] Room Number 307 EMI[address] | | | Patient Number [id number] Date of Study | | | 11/05/2017 Visit Number [id number] | | | Referring Physician AUDI ANDRADE Number Date of | | | 1945 Sericulturist Jasbir Gatica | | | Age 72 year(s) Interpreting | | | GENIE WARREN | | | Funnel Setter CHAYO | | | SHERRIE RADFORD | | | | | | Gender Female Nurse | | | Stress Pin Drafting Machine Tender | | | Procedure Type of Study [...] valve cusps without reducedexcursion.Tricuspid | | | EdyajSufq-ih-ssqnrjto tricuspid regurgitation suggestive of a mildly | [...] | | | EF | | | Wvvjoccmo00% Left Ventricle Diastolic Dimension: 4.77 cm Septum [...] |excursion. | | |Tricuspid Valve | | |Rbsp-if-mgssozgv tricuspid regurgitation suggestive of a mildly elevated [...] Volume: 60.67 ml | | | EF Xwyusmyuv96% | | | | | | Left [...] Report | | (TTE) Demographics Patient Name [facility] Room Number 307 | | EMILE Patient Number [id number] Date of Study 11/05/2017 Visit Number | | [id number] Referring Physician AUDI ANDRADE | | Number Date of 1945 Sericulturist Jasbir Gatica Age | | 72 year(s) Interpreting GENIE WARREN | | Funnel Setter CHAYO | | SHERRIE RADFORD MD [...] aortic valve cusps | | without reducedexcursion.Tricuspid HotafLgir-wz-rfxuvodr tricuspid regurgitation | | suggestive of a [...] LA Volume: 60.67 ml | | EF Yqxjykdhc21% Left Ventricle Diastolic Dimension: 4.77 | | [...] reduced | |excursion. | |Tricuspid Valve | |Mnvc-sy-spafvatv tricuspid regurgitation suggestive of a mildly elevated [...] LA Volume: 60.67 ml | | EF Gwnqrbwdu59% | | | | Left Ventricle | [...] [address] | [place] | [phone] | | [facility] | | [address] | | | - LABORATORY | | [...] [address] | [place] | [phone] | | [facility] | | [address] | | | - LABORATORY | | [...] [address] | [place] | [phone] | | [facility] | | [address] | | | - LABORATORY | | [...] [address] | [place] | [phone] | | [facility] | | [address] | | | - LABORATORY | | [...] + | [facility] | [address] | [place] | [phone] | | [facility] | | [address] | | | - LABORATORY | | [...] [facility] | | | SPANISH | RATE,ESTIMATED | | MEDICAL | | | | mL/min/1.54h4Dcgs than | | CENTER - | | [...] + | [facility] | [address] | [place] | [phone] | | [facility] | | [address] | | | - LABORATORY | | [...] [address] | [place] [place] | [phone] | | [facility] | | [address] | | | - LABORATORY | | [...] + | [facility] | [address] | [place] | [phone] | | [facility] | | [address] | | | - LABORATORY | | [...] [address] | [place] | [phone] | | [facility] | | [address] | | | - LABORATORY | | [...] [address] | [place] | [phone] | | [facility] | | [address] | | | - LABORATORY | | [...] [address] | [place] | [phone] | | [facility] | | [address] | | | - LABORATORY | | [...] ST. | [address] | [place] | [phone] | | [facility] | | [address] | | | - LABORATORY | | [...] [address] | [place] | [phone] | | [facility] | | [address] | | | - LABORATORY | | | | + + + + + Magnesium (11/04/2017 4:19 AM PST) + +-------+ + + + | Component | Value | Ref Range | Performed | Pathologist | | | | | At | Signature | + +-------+ + + + | Magnesium | 1.9 | 1.8 - 2.5 mg/dL | [facility] | | | | | | [facility] | | | | | | [...] + | [facility] | [address] | [place] | [phone] | | [facility] | | [address] | | | - LABORATORY | | [...] ST. | [address] | [place], [place] | [phone] | | [facility] | | [address] | | | - LABORATORY | | [...] | | GLOMERULAR FILTRATION | mL/min/1.73m2 | [facility] | | | SPANISH | RATE,ESTIMATED | | MEDICAL | | | | mL/min/1.96v0Hyml than | | CENTER - | | [...] | | | | | mg/dL | [facility] | | | | | | [...] [address] | [place] | [phone] | | [facility] | | [address] | | | - LABORATORY | | [...] [address] | [place] | [phone] | | [facility] | | [address] | | | - LABORATORY | | [...] + | [facility] | [address] | [place] | [phone] | | [facility] | | [address] | | | - LABORATORY | | [...] [address] | [place] | [phone] | | [facility] | | [address] | | | - LABORATORY | | [...] [address] | [place] | [phone] | | [facility] | | [address] | | | - LABORATORY | | [...] [address] | [place] | [phone] | | [facility] | | [address] | | | - LABORATORY | | [...] | | | POC | | | [facility] | | | | | | [...] + | [facility] | [address] | [place] | [phone] | | [facility] | | [address] | | | - LABORATORY | | [...] ST. | [address] | [place] | [phone] | | [facility] | | [address] | | | - LABORATORY | | [...] [address] | [place] | [phone] | | [facility] | | [address] | | | - LABORATORY | | [...] + | [facility] | [address] | [place], [place] | [phone] | | [facility] | | [address] | | | - [...] + | [facility] | [address] | [place] | [phone] | | [facility] | | [address] | | | - LABORATORY | | [...] + | [facility] | [address] | [place] | [phone] | | [facility] | | [address] | | | - LABORATORY | | [...] [address] | [place] | [phone] | | [facility] | | [address] | | | - LABORATORY | | [...] + | Performed at: 01 - [facility] [place] [address], | REFERENCE LAB | | [place], [place] [id number] Low Voltage Technician: Ernie Lee MD, Phone: | [facility] | | [phone] | | + + + + + + + + | Performing | Address | City/State/Zipcode | Phone Number | | Organization | | | | + + + + + | REFERENCE LAB | [address] | [place] [address] | [phone] | | [facility] | [address] [...] [address] | [place] | [phone] | | [facility] | | [address] | | | - LABORATORY | | [...] + | [facility] | [address] | [place] | [phone] | | [facility] | | [address] | | | - LABORATORY | | [...] [address] | [place] | [phone] | | [facility] | | [address] | | | - LABORATORY | | [...] test | | | | | | ([id number]). | | | | + + + + + + + + | Specimen | + + | Blood | + + + + + | Narrative | Performed At | + + + | Performed at: - [place] [address], | REFERENCE LAB | | [place], [place] [id number] Low Voltage Technician: Ernie Lee MD, Phone: | [facility] | | [phone] | | + + + + + + + + | Performing | Address | City/State/Zipcode | Phone Number | | Organization | | | | + + + + + | REFERENCE LAB | [address] | [place] [address] | [phone] | | [facility] | Drive [...] [facility] | | | SPANISH | RATE,ESTIMATED | | MEDICAL | | | | mL/min/1.02p0Oshg than | | CENTER - | | [...] [address] | [place] | [phone] | | [facility] | | [address] | | | - LABORATORY | | [...] | [facility] | [address] | [place] | [phone] | | [facility] | | [address] | | | - LABORATORY | | [...] + | [facility] | [address] | [place] | [phone] | | [facility] | | [address] | | | - LABORATORY | | [...] | | POC | | | [facility] | | | | | [...] [address] | [place] | [phone] | | [facility] | | [address] | | | - LABORATORY | | [...] + | [facility] | [address] | [place] | [phone] | | [facility] | | [address] | | | - LABORATORY | | | | + + + + + CT Abdomen Pelvis wo Contrast (11/02/2017 7:27 PM [facility]) + + | Specimen | + [...] ST. | [address] | [place], [place] | [phone] | | [facility] | | [address] | | | - LABORATORY | | [...] [address] | [place] | [phone] | | [facility] | | [address] | | | - LABORATORY | | [...] | [facility] | [address] | [place] | [phone] | | [facility] | | [address] | | | - LABORATORY | | [...] [address] | [place] | [phone] | | [facility] | | [address] | | | - LABORATORY | | [...] | | POC | | | [facility] | | | | | | MEDICAL [...] [address] | [place] | [phone] | | [facility] | | [address] | | | - LABORATORY | | [...] [address] | [place] | [phone] | | [facility] | | [address] | | | - LABORATORY | | [...] [address] | [place] | [phone] | | [facility] | | [address] | | | - LABORATORY | | [...] [address] | [place] | [phone] | | [facility] | | [address] | | | - LABORATORY | | [...] + | [facility] | [address] | [place] | [phone] | | [facility] | | [address] | | | - LABORATORY | | [...] [address] | [place] | [phone] | | [facility] | | [address] | | | - LABORATORY | | [...] [address] | [place] | [phone] | | [facility] | | [address] | | | - LABORATORY | | [...] [address] | [place] | [phone] | | [facility] | | [address] | | | - LABORATORY | | [...] ST. | [address] | [place] | [phone] | | [facility] | | [address] | | | - LABORATORY | | [...] [address] | [place] | [phone] | | [facility] | | [address] | | | - LABORATORY | | [...] + | [facility] | [address] | [place] | [phone] | | [facility] | | [address] | | | - LABORATORY | | [...] [facility] | | | SPANISH | RATE,ESTIMATED | | MEDICAL | | | | mL/min/1.83y7Lleo than | | CENTER - | | [...] + | [facility] | [address] | [place] | [phone] | | [facility] | | [address] | | | [...] [address] | [place] | [phone] | | [facility] | | [address] | | | - LABORATORY | | [...] - 1.030 | [facility] | | | [place] | | | [facility] | | [...] + | [facility] | [address] | [place] | [phone] | | [facility] | | [address] | | | - LABORATORY | | [...] | | | | | | [employer] | | | | | [...] + | [facility] | [address] | [place] | [phone] | | [facility] | | [address] | | | - LABORATORY | | [...] [address] | [place] | [phone] | | [facility] | | [address] | | | - LABORATORY | | [...] + | [facility] | [address] | [place] | [phone] | | [facility] | | [address] | | | - LABORATORY | | [...] + | [facility] | [address] | [place] | [phone] | | [facility] | | [address] | | | - LABORATORY | | [...] [address] | [place] | [phone] | | [facility] | | [address] | | | - LABORATORY | | [...] [address] | [place] | [phone] | | [facility] | | [address] | | | - LABORATORY | | [...] + | [facility] | [address] | [place] | [phone] | | [facility] | | [address] | | | - LABORATORY | | [...] | third generation TSH | uIU/mL | [facility] | | | | test. | [...] [address] | [place] | [phone] | | [facility] | | [address] | | | - LABORATORY | | [...] | | | | | | [employer] | | | | | [...] [address] | [place] | [phone] | | [facility] | | [address] | | | - LABORATORY | | [...] [address] | [place] | [phone] | | [facility] | | [address] | | | - LABORATORY | | [...] [address] | [place] | [phone] | | [facility] | | [address] | | | - LABORATORY | | [...] mL/min/1.73m2 | [facility] | | | SPANISH | RATE,ESTIMATED | | MEDICAL | | | | mL/min/1.57q6Dtid than | | CENTER - | | [...] + | [facility] | [address] | [place] | [phone] | | [facility] | | [address] | | | - LABORATORY | | [...] ST. | [address] | [place], [place] | [phone] | | [facility] | | [address] | | | - LABORATORY | | [...] [address] | [place] | [phone] | | [facility] | | [address] | | | - LABORATORY | | [...] [address] | [place] | [phone] | | [facility] | | [address] | | | - LABORATORY | | [...] for comparison only - no result from [place]. | [facility] | + + + [...] | | | | | | use Shields 10/325 if ordered. If | | | [...] | | | | | | | 1069-6132 Use NIGHT DOSE for | | | | | | | doses scheduled: HS, 3AM, | | | | | | | Nighttime 6335-5405, | | | | | | + [...] scheduled: AC, | | | NPO, Daytime 6283-9167 Use NIGHT | | | DOSE for doses scheduled: | | | HS, 3AM, Nighttime 7664-3034, | | + +---+ | | | [...] | | | | | | Infiltration, BUREAU CHIEF, Starting | | | | | | [...]
--- OUTSIDE RECORDS SUMMARY | ~2019-07-27 | XMS | Encounter Summary ---
Demographics + + + | Address | [address] | | | [place] [address] | + + + | Home Phone [...] | Author | [facility] | | | and [place] | + + + | Organization | [facility] | | | and [place] | + + + | Address | Unknown | + + + | Phone | Unavailable | + + + Support + + + + + | Name | Relationship | Address | Phone | + + + + + | India Tilley | ECON | [address] | | | | | [place], [place] | | | | | [address] | | + + + + + | Yina La | ECON | Unknown | | + + + + + | Yina Peterson | ECON | Unknown | | + + + + + | Leatha Casillas | ECON | Unknown | | + + + + + Care Team Providers + +------+ + | Care Clinical Abstractor Name | Role | Phone | + [...] | | | | | [address] | [place], [place] | | | | | [place], [place] | [address] | | | | | [address] | | | | | | [phone] | | | +--------+ + + + [...] +----+---+ + + | | 1 | [place] | | | | 2 | 43-degrees [...] +----+---+ + + | | 1 | [place] off | | | | 3 | [...] short | Jessie Perez RN | India aCrrillo RN | | IV | term use; [...]
--- OUTSIDE RECORDS SUMMARY | ~2019-07-27 | XMS | Encounter Summary ---
Demographics + + + | Address | [address] | | | [place] [address] | + + + | Home Phone [...] | Author | [facility] | | | and [place] | + + + | Organization | [facility] | | | and [place] | + + + | Address | Unknown | + + + | Phone | Unavailable | + + + Support + + + + + | Name | Relationship | Address | Phone | + + + + + | India T[place]ley | ECON | [address] | | | | | [place], [place] | | | | | [address] | | + + + + + | Yina La | ECON | Unknown | | + + + + + | Yina Peterson | ECON | Unknown | | + + + + + | Leatha Casillas | ECON | Unknown | | + + + + + Care Team Providers + +------+ + | Care Operater Name | Role | Phone | + [...] | (Primary Dx); | | | | [place], [place] | [place] [address] | Arthritis; Other | | | | [address] | [phone] | back pain; History | | | | [phone] | | of blood clots; | | [...]
--- OUTSIDE RECORDS SUMMARY | ~2019-07-27 | XMS | Encounter Summary ---
Demographics + + + | Address | [address] | | | [place] [address] | + + + | Home Phone | | + + + | Preferred Language | Unknown | + + + | Marital Status | Single | + + + | Caodaism Affiliation | Unknown | + + + | Race | Unknown | + + + | Ethnic Group | Unknown | + + + Author + + + | Author | [facility] | | | and [place] | + + + | Organization | [facility] | | | and [place] | + + + | Address | Unknown | + + + | Phone | Unavailable | + + + Support + + + + + | Name | Relationship | Address | Phone | + + + + + | India Tilley | ECON | [address] | | | | | [place], [place] | | | | | [address] | | + + + + + | Yina La | ECON | Unknown | | + + + + + | Yina Peterson | ECON | Unknown | | + + + + + | Leatha Casillas | ECON | Unknown | | + + + + + Care Team Providers + +------+ + | Care Egg Trayer Name | Role | Phone | + [...] | | | | | [address] | [place] | | | | | [place] | [phone] | | | | | [address] | | | | | | [phone] | Vinnie Last MD | | | | | | [address] | | | | | | [place] | | | | | | [address] | | | | | | | [...] +----+---+ + + | | 1 | [place] | | | | 3 | 43-degrees | | | | 2 | | | | | 1 | | | +----+---+ + + | | 1 | First | | | | 3 | [address] St | | | | 2 | | | | | 8 | | | +----+---+ + + | | 1 | [place] off | | | | 5 | [...] 01/04/18 1728 by | | eral | [id number] catheter system; | Linh Gamez RN | [...]
--- OUTSIDE RECORDS SUMMARY | ~2019-07-27 | XMS | Encounter Summary ---
Demographics + + + | Address | [address] | | | [place] [address] | + + + | Home Phone [...] | [facility] | | | and [place] | + + + | Organization | [facility] | | | and [place] | + + + | Address | Unknown | + + + | Phone | Unavailable | + + + Support + + + + + | Name | Relationship | Address | Phone | + + + + + | India Tilley | ECON | [address] | | | | | [place], [place] | | | | | [address] | | + + + + + | Yina La | ECON | Unknown | | + + + + + | Yina Peterson | ECON | Unknown | | + + + + + | Leatha Casillas | ECON | Unknown | | + + + + + Care Team Providers + +------+ + | Care Diesel Trailer Mechanic Name | Role | Phone | [...] | [address] [address] | [address], [place] | | | | | [place] | [address] [place] | | | | | [address] | [address] | | | | | [phone] | | | +--------+ + + + [...] [facility] for consult: need to fax to [facility] closer t o appt. RU documented [...]
--- OUTSIDE RECORDS SUMMARY | ~2019-07-27 | XMS | Encounter Summary ---
Demographics + + + | Address | [address] | | | [place] [address] | + + + | Home Phone [...] Author | [facility] | | | and [place] | + + + | Organization | [facility] | | | and [place] | + + + | Address | Unknown | + + + | Phone | Unavailable | + + + Support + + + + + | Name | Relationship | Address | Phone | + + + + + | India T[place]ley | ECON | [address] | | | | | [place], [place] | | | | | [address] | | + + + + + | Yina La | ECON | Unknown | | + + + + + | Yina Peterson | ECON | Unknown | | + + + + + | Leatha Casillas | ECON | Unknown | | + + + + + Care Team Providers + +------+ + | Care Standards Engineer Name | Role | Phone | + +------+ + PCP | Unavailable | + +------+ + Encounter Details +--------+ + + + + | Date | Type | Department | Care Team | Description | +--------+ + + + + | 09/09/ | Hospital | [facility] | | | | 2005 - | Encounter | MED CTR CANCER | | | | | | CENTER [facility] [address] | | | | 09/12/ | | [place] | | | | 2005 | | [address] | | | | | | [phone] | | | +--------+ + + + [...]
--- OUTSIDE RECORDS SUMMARY | ~2019-07-27 | XMS | Encounter Summary ---
Demographics + + + | Address | [address] | | | [place] [address] | + + + | Home Phone [...] Author | [facility] | | | and [place] | + + + | Organization | [facility] [...] [place], [place] | | | | | [address] | | + + + + + | Yina La | ECON | Unknown | | + + + + + | Yina Peterson | ECON | Unknown | | + + + + + | Leatha Casillas | ECON | Unknown | | + + + + + Care Team Providers + +------+ + | Care Modeling Teacher Name | Role | Phone | + +------+ + PCP | Unavailable | + +------+ + Encounter Details +--------+ + + + + | Date | Type | Department | Care Team | Description | +--------+ + + + + | 12/19/ | Hospital | [facility] | Patricia, | | | 2007 - | Encounter | MED CTR CANCER | Venkatesh Forte MD [address] | | | | | [place] [address] | [facility] | | | 01/10/ | | [place], [place] | [place] [address] | | | 2007 | | [address] | [phone] | | | | | [phone] | | | +--------+ + + + [...]
--- OUTSIDE RECORDS SUMMARY | ~2019-07-27 | XMS | Encounter Summary ---
Demographics + + + | Address | [address] | | | [place] [address] | + + + | Home Phone [...] + | Author | [facility] | | | and [place] | + + + | Organization | [facility] | | | and [place] | + + + | Address | Unknown | + + + | Phone | Unavailable | + + + Support + + + + + | Name | Relationship | Address | Phone | + + + + + | India Tilley | ECON | [address] | | | | | [place], [place] | | | | | [address] | | + + + + + | Yina La | ECON | Unknown | | + + + + + | Yina Peterson | ECON | Unknown | | + + + + + | Leatha Casillas | ECON | Unknown | | + + + + + Care Team Providers + +------+ + | Care Christmas Tree Grader Name | Role | Phone | [...] NEPHROLOGY [address] | M, DO [address] | | | | | [address] | [place] | | | | | [place], [place] | [place] | | | | | [address] | [address] | | | | | [phone] | | | +--------+ + + + [...]
--- OUTSIDE RECORDS SUMMARY | ~2019-07-27 | XMS | Encounter Summary ---
Demographics + + + | Address | [address] | | | [place] [address] | + + + | Home Phone [...] | Author | [facility] | | | and [place] | + + + | Organization | [facility] | | | and [place] | + + + | Address | Unknown | + + + | Phone | Unavailable | + + + Support + + + + + | Name | Relationship | Address | Phone | + + + + + | India Tilley | ECON | [address] | | | | | [place], [place] | | | | | [address] | | + + + + + | Yina La | ECON | Unknown | | + + + + + | Yina Peterson | ECON | Unknown | | + + + + + | Leatha Casillas | ECON | Unknown | | + + + + + Care Team Providers + +------+ + | Care Straight Tooth Gear Generator Operator Name | Role | Phone | [...] + + | 06/14/ | Telephone | [facility] | Tabatha Patel, | Care Coordination | | 2019 | | INFECTIOUS DISEASE | Silk Weaver | (Patient Timeline - | | | | [address] | | Line Care/Provider | | | | [place], [place] | | Management ) | | | | [address] | | | | | | [phone] | | | +--------+ + + + [...]
--- OUTSIDE RECORDS SUMMARY | ~2019-07-27 | XMS | Encounter Summary ---
Demographics + + + | Address | [address] | | | [place] [address] | + + + | Home Phone [...] Author | [facility] | | | and [place] | + + + | Organization | [facility] | | | and [place] | + + + | Address | Unknown | + + + | Phone | Unavailable | + + + Support + + + + + | Name | Relationship | Address | Phone | + + + + + | India T[place]ley | ECON | [address] | | | | | [place], [place] | | | | | [address] | | + + + + + | Yina La | ECON | Unknown | | + + + + + | Yina Peterson | ECON | Unknown | | + + + + + | Leatha Casillas | ECON | Unknown | | + + + + + Care Team Providers + +------+ + | Care Retail Key Holder Name | Role | Phone | + [...] | ([facility]) | | | | | | | Complication | | | | | | | s, dialysis, | | | | | | | catheter, | | | | | | | mechanical, | | | | | | | initial | | | | | | | encounter | | | | | | | ([facility]) | | | | | | | [...] W/ | | | | [address] | [facility] | [place] | | 02/05/ | | [place], [place] | [place] [address] | | | 2017 | | [address] | [phone] | | | | | [phone] | | | +--------+---------+ + + + [...] Office Phone Number to Contact Dr Navarro: [phone] Navarro's Office to schedule a follow up visit as needed - you will follow up with Dr Stephenson and at the dialysis center. Our office is located in the [facility] next door to Urgent Care. Other [...] Wednesday 9:00-2:00PM. Call the General Surgery Office [phone] for the following: Persistent vomiting Diarrhea lasting [...] as possible. Limit sports and strenuous activities [id number]. Shower as usual. Gently wash around your [...] | | | |Dictated and Signed by: Roaln Orellana MD | | Electronically signed: 02/05/2018 [...] ST[address] | [address] | [place] | [phone] | | [facility] | | [address] | | | - LABORATORY | | [...] + | [facility] | [address] | [place] | [phone] | | [facility] | | [address] | | | - LABORATORY | | [...] 3.57 (H) | 0.60 - 1.30 | [facility] | | | | | mg/dL | [facility] | | | | | | MEDICAL | | | | | | CENTER - | | | | | | LABORATORY | | + + + + + + | eGFR if not | 13 (L)Comment: | >=60 | [facility] | | | | GLOMERULAR FILTRATION | mL/min/1.73m2 | [facility] | | | ETHIOPIAN | RATE,ESTIMATED | | MEDICAL | | | | mL/min/1.08h7Hpqq than | | CENTER - | | [...] | [facility] [address] [facility] | [address] | [place] | [phone] | | [facility] | | [address] | | | - LABORATORY | | [...] [address] | [place] | [phone] | | [facility] | | [address] | | | - LABORATORY | | [...] agent. | | | Ondansetron IV is one piece expansion maker hand | | | out. If patient cannot [...]
--- OUTSIDE RECORDS SUMMARY | ~2019-07-27 | XMS | Encounter Summary ---
Demographics + + + | Address | [address] | | | [place] [address] | + + + | Home Phone [...] | Author | [facility] | | | and [place] | + + + | Organization | [facility] | | | and [place] | + + + | Address | Unknown | + + + | Phone | Unavailable | + + + Support + + + + + | Name | Relationship | Address | Phone | + + + + + | India Tilley | ECON | [address] | | | | | [place], [place] | | | | | [address] | | + + + + + | Yina La | ECON | Unknown | | + + + + + | Yina Peterson | ECON | Unknown | | + + + + + | Leatha Casillas | ECON | Unknown | | + + + + + Care Team Providers + +------+ + | Care Ranch [facility] [employer] Name | Role | Phone | + [...] | Surgery | kidney | DO [address] | [address] | | | | | disease, | [place], Jorden | [address] | | | | | stage V | [address] | [place], | | | | | ([facility]) | [place] | [place] [address] | | | | | | [address] | Phone: | | | | | | Phone: | [phone] | | | | | | [phone] | Fax: | | | | | | Fax: | [phone] | | | | | | [phone] | | +--------+ + + + + + Encounter Details +--------+---------+ + + + | Date | Type | Department | Care Team | Description | +--------+---------+ + + + | 02/10/ | Office | [facility] | Santos Stephenson | Chronic kidney | | 2018 | Visit | SURGERY [address] | MD Kinga, FACS [address] | disease, stage V | | | | [place], [place] | [facility] | (HCC) (Primary Dx); | | | | [address] | [place] [place] [address] | Post-operative state | | | | [phone] | [phone] | | | | | | | [...] Stephenson MD, FACS; Location: [facility] OR Allergies Allergen Reactions Lisinopril Pt [...] REPORT: PATIENT NAME : Estefani Tilley EQUIPMENT: Fanzila M-Turbo with 10-5 mHertz probe. INDICATIONS: S/P [...]
--- OUTSIDE RECORDS SUMMARY | ~2019-07-27 | XMS | Encounter Summary ---
Demographics + + + | Address | [address] | | | [place] [address] | + + + | Home Phone [...] | Author | [facility] | | | and [place] | + + + | Organization | [facility] | | | and [place] | + + + | Address | Unknown | + + + | Phone | Unavailable | + + + Support + + + + + | Name | Relationship | Address | Phone | + + + + + | India Tilley | ECON | [id number] | | | | | [place], [place] | | | | | [address] | | + + + + + | Yina La | ECON | Unknown | | + + + + + | Yina Peterson | ECON | Unknown | | + + + + + | Leatha Casillas | ECON | Unknown | | + + + + + Care Team Providers + +------+ + | Care Operations Recruiter Name | Role | Phone | + +------+ + PCP | Unavailable | + +------+ + Encounter Details +--------+ + + + + | Date | Type | Department | Care Team | Description | +--------+ + + + + | 05/16/ | Abstract | [facility] | Gopi Muñoz | | | 2018 | | NEPHROLOGY [address] | M, DO [address] | | | | | [address] [facility] [address] | [place], [facility] [address] | | | | | [place], [place] | [place] | | | | | [address] | [address] | | | | | [phone] | | | +--------+ + + + [...]
--- OUTSIDE RECORDS SUMMARY | ~2019-07-27 | XMS | Encounter Summary ---
Demographics + + + | Address | [address] | | | [place] [address] | + + + | Home Phone [...] | Author | [facility] | | | and [place] | + + + | Organization | [facility] | | | and [place] | + + + | Address | Unknown | + + + | Phone | Unavailable | + + + Support + + + + + | Name | Relationship | Address | Phone | + + + + + | India Tilley | ECON | [id number] | | | | | [place], [place] | | | | | [address] | | + + + + + | Yina La | ECON | Unknown | | + + + + + | Yina Peterson | ECON | Unknown | | + + + + + | eLatha Casillas | ECON | Unknown | | + + + + + Care Team Providers + +------+ + | Care Non Linear Editor Name | Role | Phone | + +------+ + PCP | Unavailable | + +------+ + Encounter Details +--------+ + + + + | Date | Type | Department | Care Team | Description | +--------+ + + + + | 10/14/ | Hospital | [facility] | | | | 2006 - | Encounter | [facility] | | | | | | CENTER [facility] [address] | | | | 11/10/ | | [place] | | | | 2006 | | [address] | | | | | | [phone] | | | +--------+ + + + [...]
--- OUTSIDE RECORDS SUMMARY | ~2019-07-27 | XMS | Encounter Summary ---
Demographics + + + | Address | [address] | | | [place] [address] | + + + | Home Phone [...] Author | [facility] | | | and [place] | + + + | Organization | [facility] | | | and [place] | + + + | Address | Unknown | + + + | Phone | Unavailable | + + + Support + + + + + | Name | Relationship | Address | Phone | + + + + + | India Tilley | ECON | [id number] | | | | | [place], [place] | | | | | [address] | | + + + + + | Yina La | ECON | Unknown | | + + + + + | Yina Peterson | ECON | Unknown | | + + + + + | Leatha Casillas | ECON | Unknown | | + + + + + Care Team Providers + +------+ + | Care Special Services Supervisor Name | Role | Phone | [...] | | | | | | | ([facility]) | | | | | | | Complication | | | | | | | s, dialysis, | | | | | | | catheter, | | | | | | | mechanical, | | | | | | | initial | | | | | | | encounter | | | | | | | ([facility]) | | | | | | | [...] + + | 02/04/ | Emergency | [facility] | [place], | Complications, | | 2018 - | | MED CTR SURGICAL | Venkatesh Esteban MD [address] | dialysis, catheter, | | | | [address] [place] | [address] [place] | mechanical, initial | | 02/05/ | | [place] [address] | [place] [address] | encounter ([facility]) | | 2018 | | [phone] | [phone] | (Primary Dx); End | | | | | | stage renal disease | | | | | Heather Navarro, | ([facility]) | | | | | [address] | | | | | | [place], [place] | | | | | | [id number] | | | | | | | [...] Office Phone Number to Contact Dr Navarro: [phone] Navarro's Office to schedule a follow up visit as needed - you will follow up with Dr Stephenson and at the dialysis center. Our office is located in the [facility] next door to Urgent Care. Other [...] Wednesday 9:00-2:00PM. Call the General Surgery Office [phone] for the following: Persistent vomiting Diarrhea lasting [...] as possible. Limit sports and strenuous activities [id number]. Shower as usual. Gently wash around your [...] by staff. Electronically sign ed by Jasson Kikrpatrick RN at 02/05/2018 1:56 AM PDTdocumented in [...] ST. | [address] | [place], [place] | [phone] | | [facility] | | [address] | | | - LABORATORY | | [...] ST. | [address] | [place], [place] | [phone] | | [facility] | | [address] | | | - LABORATORY | | [...] 3.57 (H) | 0.60 - 1.30 | [facility] | | | | | mg/dL | [...] mL/min/1.73m2 | [facility] | | | [facility] | RATE,ESTIMATED | | MEDICAL | | | | mL/min/1.94q0Tkzr than | | CENTER - | | [...] [address] | [place] | [phone] | | [facility] | | [address] | | | - LABORATORY | | [...] [address] | [place] | [phone] | | [facility] | | [address] | | | - LABORATORY | | | | + + + + + documented in this encounter Visit Diagnoses + + | Diagnosis | + + | Complications, dialysis, catheter, mechanical, initial encounter ([facility]) - Primary | + + | End stage renal disease ([facility]) End stage renal disease | + + [...] | | | | | Pain, Starting Wed02/04/18 at | | | | | | [...] agent. | | | Ondansetron IV is couples therapist | | | out. If patient cannot [...]
--- OUTSIDE RECORDS SUMMARY | ~2019-07-27 | XMS | Encounter Summary ---
Demographics + + + | Address | [address] | | | [place] [address] | + + + | Home Phone [...] + | India Campos | ECON | [address] | | | | | [place], [place] | | | | | [address] | | + + + + + | Yina La | ECON | Unknown | | + + + + + | Yina Peterson | ECON | Unknown | | + + + + + | Leatha Casillas | ECON | Unknown | | + + + + + Care Team Providers + +------+ + | Care Plaster Caster Name | Role | Phone | + [...] renal | [address] | [place] | | | | | disease) on | [facility] | [place], | | | | | dialysis | [place], [place] | [place] [address] | | | | | ([facility]) | [address] | Phone: | | | | | | Phone: | [phone] | | | | | | [phone] | Fax: | | | | | | Fax: | [phone] | | | | | | [phone] | | +--------+--------+ + + + + [...] | | | | dialysis | [place] | [place] | | | | | ([facility]) | [address] | [address] | | | | | Essential | Phone: | Phone: | | | | | hypertension | [phone] | [phone] | | | | | Type 2 | Fax: | Fax: | | | | | diabetes | [phone] | [phone] | | | | | mellitus | [...] | | | | | ([facility]) | | | +--------+ + [...] | | | | | dialysis | [facility] [place] | [place] | | | | | ([facility]) | [address] | [address] | | | | | Essential | Phone: | Phone: | | | | | hypertension | [phone] | [phone] | | | | | Type 2 | Fax: | Fax: | | | | | diabetes | [phone] | [phone] | | | | | mellitus | [...] | | | | | ([facility]) | | | +--------+ + [...] + + | 05/20/ | Hospital | [facility] | Mirza Retana | Hypoxia; Pulmonary | | 2019 - | Encounter | [facility] | MD Coy [address] | edema with | | | | [address] [place] | [address] [place] | congestive heart | | 05/25/ | | [place] [address] | [place] [address] | failure, NYHA class | | 2019 | | [phone] | [phone] | 4 (HCC); ESRD (end | | | | | | stage renal disease) | | | | | Nora Christina MD | on dialysis ([facility]); | | | | | [address] | Hypertensive | | | | | [place], [place] | urgency, malignant; | | | | | [address] | Anemia in chronic | | | | | | kidney disease, on | | | | | | chronic dialysis | | | | | | ([facility]); Essential | | | | | | hypertension; | | | | | | Osteomyelitis of | | | | | | thoracic region | | | | | | ([facility]); Type 2 | | | [...] Christina MD - 05/25/2019 11:24 AM PDT [facility] HOSPITALIST DISCHARGE SUMMARY Pt. Name/Age/: Ara Campos [...] the setting of ESRD and missing HD SYSTEMS TECHNOLOGIST. S/p thoracentesis wit h 1300cc fluid removed, studies c/w transudative effusion. Cytology negative for malignant c ells. No growth on culture thus far. Patient is on room air. Of note, recent echo in March sh owed normal EF. #Hypertensive urgency in the s/o volume overload #ESRD on HD Suspect chronic nonadherence with medications and patient also missed HD SYSTEMS TECHNOLOGIST. SBP 200s on a rrival here. Blood pressure improved after HD, resumption of home medications. Amlodipine an d losartan also added, Nephrology will CTM as outpatient. #Acute metabolic encephalopathy Possibly 2/2 medication as patient received 1mg Ativan at OSH SYSTEMS TECHNOLOGIST. At baseline currently. #Recent osteomyelitis Patient admitted [...] Nephrology Why: Nephrology follow up Contact information: [address] [place] [address] Condition: stable Diet: renal, cc Greater than 30 minutes were spent on discharge and coordination of post-hospital care. Electronically signed by: Nora Christina MD, 05/25/2019 11:24 [facility] documented in this enco unter Discharge [...] will likely include a biopsy in the [facility] down the line. Nora Christina [...] Arthritis, Back pain, Breast cancer ([facility]), Cancer ([facility]), Diabetes (HCC), Heart disease, Hemodialysis patient ([facility]), History of blood clots, Hypercholesteremia, Hypertensio n, Hypothyroidism, Renal failure, Seasonal allergies, and Stroke (cerebrum) ([facility]). . Risk fa ctors for [...] Culture, Body Fluid, Sterile, Smear, with Anaerobes [[id number]] Collected: 05/22/19 150 Order Status: Sent Lab Status: In process Updated: 05/22/19 151 Specimen: Body Fluid from Pleural Fluid, Left Narrative: The following orders were created for panel order Culture, Body Fluid, Sterile, Smear, wit h Anaerobes. Procedure Abnormality Status --------- ------ Culture, Body Fluid, Aerobe[[id number]] Preliminary result Culture, Body Fluid, Bre...[[id number]] In process Please view results for these tests on the individual orders. Culture, Fungus, Smear [[id number]] Collected: 05/22/19 150 Order Status: Sent Lab Status: In process Updated: 05/22/19 1510 Specimen: Body Fluid from Pleural Fluid, Left Culture, Body Fluid, Aerobe [[id number]] Collected: 05/22/19 150 Order Status: Completed Lab Status: Preliminary result Updated: 05/24/19 1038 Specimen: Body Fluid from Pleural Fluid, Left Culture No growth to date Gram Stain Result 4+ White Blood Cells No organisms seen Culture, Body Fluid, Anaerobe [[id number]] Collected: 05/22/19 1509 Order Status: Resulted Lab Status: In process Updated: 05/22/19 1510 Specimen: Body Fluid from Pleural Fluid, Left Culture, MRSA [[id number]] Collected: 05/20/192021 Order Status: Completed Lab Status: Final result Updated: 05/22/19 0753 Specimen: Tissue from Nares Culture Negative for MRSA by chromogenic agar method. 2+ Coagulase positive Staphylococcus Culture, Blood, 2nd Specimen [[id number]] Collected: 05/18/19 1548 Order Status: Completed Lab Status: Final result Updated: 05/24/19545 RESULT NO GROWTH 6 DAYS RESULT Testing performed at [facility];[address] [place] [address];[place] [address] Comment: Testing performed at [facility], [address] [place] [address] Culture, Blood [[id number]] Collected: 05/18/19 1508 Order Status: Completed Lab Status: Final result Updated: 05/24/19545 Specimen: Blood from Antecubital, Right RESULT NO GROWTH 6 DAYS RESULT Testing performed at [facility];[address] [place] [address];[place] [address] Comment: Testing performed at [facility], [address] [place] [address], [place] [address] Culture, Blood [[id number]] Collected: 05/18/19 1447 Order Status: Canceled Lab [...] and htn Prior to admission dialysis schedule: [facility] Vancomycin Dosing in HD patients: Loading dose [...] ESR, Cxs, case with his previous ID Engineering Technical Specialist, Dr. Nick Miller MD . He recommends [...] Bx's here. Therefore, shai kearney confer with [facility] IR, outpt. She was agreeable to staying one more nite for HD and clarif y AB regimen. Vanc. /Cefepime were given, IV, during discussion, after reviewing MRI report but before the phone conversation with Dr. Jung. BP control is better. Her Mental status is very clear. Also had HD x 5 hrs, 2K+, 35 HCO3 a nd tolerated well. [facility] Joo Rodriguez, Padder Cushion - 05/24/2019 3:46 PM PDT VANCOMYCIN PER [...] Culture, Body Fluid, Sterile, Smear, with Anaerobes [[id number]] Collected: 05/22/19 150 Order Status: Sent Lab Status: In process Updated: 05/22/191512 Specimen: Body Fluid from Pleural Fluid, Left Narrative: The following orders were created for panel order Culture, Body Fluid, Sterile, Smear, wit h Anaerobes. Procedure Abnormality Status --------- ------ Culture, Body Fluid, Aerobe[[id number]] Preliminary result Culture, Body Fluid, Bre...[[id number]] In process Please view results for these tests on the individual orders. Culture, Fungus, Smear [[id number]] Collected: 05/22/19 150 Order Status: Sent Lab Status: In process Updated: 05/22/19 151 Specimen: Body Fluid from Pleural Fluid, Left Culture, Body Fluid, Aerobe [[id number]] Collected: 05/22/19 150 Order Status: Completed Lab Status: Preliminary result Updated: 05/24/19 1038 Specimen: Body Fluid from Pleural Fluid, Left Culture No growth to date Gram Stain Result 4+ White Blood Cells No organisms seen Culture, Body Fluid, Anaerobe [[id number]] Collected: 05/22/19 150 Order Status: Resulted Lab Status: In process Updated: 05/22/19 151 Specimen: Body Fluid from Pleural Fluid, Left Culture, MRSA [[id number]] Collected: 05/20/192021 Order Status: Completed Lab Status: Final result Updated: 05/22/19 0753 Specimen: Tissue from Nares Culture Negative for MRSA by chromogenic agar method. 2+ Coagulase positive Staphylococcus Culture, Blood, 2nd Specimen [[id number]] Collected: 05/18/19 1548 Order Status: Completed Lab Status: Final result Updated: 05/24/19545 RESULT NO GROWTH 6 DAYS RESULT Testing performed at [facility];[address] [place] [address];[place] [address] Comment: Testing performed at [facility], [address] [place] [address], [place] [address] Culture, Blood [[id number]] Collected: 05/18/19 1508 Order Status: Completed Lab Status: Final result Updated: 05/24/19545 Specimen: Blood from Antecubital, Right RESULT NO GROWTH 6 DAYS RESULT Testing performed at [facility];[address] [place] [address];[place] [address] Comment: Testing performed at [facility], [address] [place] [address], [place] [address] Culture, Blood [[id number]] Collected: 05/18/19 1447 Order Status: Canceled Lab [...] BP elevated Prior to admission dialysis schedule: [facility] Vancomycin Dosing in HD patients: Loading dose [...] Monitoring Protocol Electronically signed by: Joo Bo, Padder Cushion 05/24/2019 15:46Electroni terri signed by Joo Bo, Padder Cushion at 05/24/2019 4:49 PM Kwame Guerin MD - 05/24/2019 11:04 AM PDTFormatting of this note might be different from the origin al. [facility] [place] HOSPITALIST PROGRESS NOTE Patient: Ara Campos : 1945: Age: 74 y.o. MedRec: [id number] Admission date: 05/20/2019 Hospital day # : 4 Physician author: Nora Chrsitina MD Today: 05/24/2019 Assessment and Hospital Course [...] as patient received 1mg Ativan at OSH SYSTEMS TECHNOLOGIST. At baseline currently. #Recent osteomyelitis Patient admitted with T11-12 osteomyelitis and completed 6 weeks vanc/cefepime. Rep eat MRI again redemonstrated possible osteomyelitis - vanc and cefepime have been resumed, Deepa Muñoz is discussing case with ID. #Diabetes Blood sugars at goal. CCM. Patient is again very [facility] and is eating little to [...] Culture, Body Fluid, Sterile, Smear, with Anaerobes [[id number]] Collected: 05/22/19 150 Order Status: Sent Lab Status: In process Updated: 05/22/191512 Specimen: Body Fluid from Pleural Fluid, Left Narrative: The following orders were created for panel order Culture, Body Fluid, Sterile, Smear, wit h Anaerobes. Procedure Abnormality Status --------- ------ Culture, Body Fluid, Aerobe[[id number]] Preliminary result Culture, Body Fluid, Bre...[[id number]] In process Please view results for these tests on the individual orders. Culture, Fungus, Smear [[id number]] Collected: 05/22/19 150 Order Status: Sent Lab Status: In process Updated: 05/22/191509 Specimen: Body Fluid from Pleural Fluid, Left Culture, Body Fluid, Aerobe [[id number]] Collected: 05/22/19 1509 Order Status: Completed Lab Status: Preliminary result Updated: 05/24/19 1038 Specimen: Body Fluid from Pleural Fluid, Left Culture No growth to date Gram Stain Result 4+ White Blood Cells No organisms seen Culture, Body Fluid, Anaerobe [[id number]] Collected: 05/22/19 1509 Order Status: Resulted Lab [...] rate 6L/min Nora Christina MD 05/24/2019 11:04 [facility] Michelle Solorzano Phar mD - [...] Tobacco & Alcohol use/frequency: ? Recreational substances: Viobmwaoi-vububmf-rugx asked how much or how often patient sta rich "I smoke as much as I want" Other: No changes to SYSTEMS TECHNOLOGIST list, due to the fact that patient was very non compliant. She either di d not want to take her medications, or she stated that she did not know if she was taking th em. She did not want to do the interview. Best possible SYSTEMS TECHNOLOGIST medication list after pharmacy review: Medication review performed and electronically signed by Kerry Jordan, Programming Internship 05/23/2019 16:20 Reviewed by Michelle Ochoa, PharmD 05/23/2019 18:26 Nora Guerin MD - 05/23/2019 3:20 PM PDT [place] HOSPITALIST PROGRESS NOTE Patient: Ara Campos : 1945: Age: 74 y.o. MedRec: [id number] Admission date: 05/20/2019 Hospital day # : [...] as patient received 1mg Ativan at OSH SYSTEMS TECHNOLOGIST. At baseline currently. #Recent osteomyelitis Patient admitted [...] Culture, Body Fluid, Sterile, Smear, with Anaerobes [[id number]] Collected: 05/22/191508 Order Status: Sent Lab Status: In process Updated: 05/22/191512 Specimen: Body Fluid from Pleural Fluid, Left Narrative: The following orders were created for panel order Culture, Body Fluid, Sterile, Smear, wit h Anaerobes. Procedure Abnormality Status --------- ------ Culture, Body Fluid, Aerobe[[id number]] Preliminary result Culture, Body Fluid, Bre...[[id number]] In process Please view results for these tests on the individual orders. Culture, Fungus, Smear [[id number]] Collected: 05/22/191508 Order Status: Sent Lab Status: In process Updated: 05/22/191509 Specimen: Body Fluid from Pleural Fluid, Left Culture, Body Fluid, Aerobe [[id number]] Collected: 05/22/191508 Order Status: Completed Lab Status: Preliminary result Updated: 05/23/19902 Specimen: Body Fluid from Pleural Fluid, Left Culture No growth to date Gram Stain Result 4+ White Blood Cells No organisms seen Culture, Body Fluid, Anaerobe [[id number]] Collected: 05/22/191508 Order Status: Resulted Lab Status: In process Updated: 09/09/19 1510 Specimen: Body Fluid from Pleural Fluid, Left Culture, MRSA [[id number]] Collected: 05/20/192021 Order Status: Completed Lab Status: Final result Updated: 05/22/19 0759 Specimen: Tissue from Nares Culture Negative for [...] rate 0.5L/min Nora Christina MD 05/23/2019 15:20 [facility] documented in this enco unter [...] | | | | dialysis ([facility]) | | | | | [...] | | | | insulin ([facility]) | | + + +--------+ + + | Ambulatory referral | Outpatient | Routin | ESRD (end stage | Ordered: 05/25/2019 | | to Occupational | Referral | e | renal disease) on | | | Therapy | | | dialysis ([facility]) | | | | | [...] + | [facility] | [address] | [place] | [phone] | | [facility] | | [address] | | | - LABORATORY | | [...] [address] | [place] | [phone] | | [facility] | | [address] | | | - LABORATORY | | [...] | mL/min/1.73m2 | [facility] | | | [place] | RATE,ESTIMATED | | MEDICAL | | | | mL/min/1.02k1Jxej than | | CENTER - | | [...] 4.7 | 2.4 - 5.1 mg/dL | [facility] [...] [address] | [place] | [phone] | | [facility] | | [address] | | | - LABORATORY | | [...] + | [facility] | [address] | [place] | [phone] | | [facility] | | [address] | | | - LABORATORY | | [...] + | [facility] | [address] | [place] | [phone] | | [facility] | | [address] | | | - LABORATORY | | [...] [address] | [place] | [phone] | | [facility] | | [address] | | | - LABORATORY | | [...] + | [facility] | [address] | [place] | [phone] | | [facility] | | [address] | | | - LABORATORY | | [...] | | MEDICAL | | | | mL/min/1.34y3Xpnr than | | CENTER - | | [...] + + + | Phosphorus | 8.1 ()Comment: | 2.4 - 5.1 mg/dL | [facility] | | | | Critical Result called | | [facility] | | | | to and read back by Jose L | | MEDICAL | | | | LISA Ramos on 05/24/2019 | | CENTER - | | | | at 7:29 by Lilliana | | LABORATORY | | | | Lalitha Remote Medical Coder. | | | | + + + [...] | [facility] | [address] | [place] | [phone] | | [facility] | | [address] | | | - LABORATORY | | | | + + + + + CBC with Differential (05/24/2019 6:54 AM PDT) + + + + + + | Component | Value | Ref Range | Performed | Pathologist | | | | | At | Signature | + + + + + + | WBC | 4.6 | 4.0 - 11.0 K/uL | [facility] [...] ST. | [address] | [place] | [phone] | | [facility] | | [address] | | | - LABORATORY | | [...] [address] | [place] | [phone] | | [facility] | | [address] | | | - LABORATORY | | [...] | | | POC | | | [facility] | | | | [address] | [place] | [phone] | | [facility] | | [address] | | | - LABORATORY | | [...] [address] | [place] | [phone] | | [facility] | | [address] | | | - LABORATORY | | [...] ST. | [address] | [place], [place] | [phone] | | [facility] | | [address] | | | - LABORATORY | | [...] | | MEDICAL | | | | mL/min/1.32o9Ilno than | | CENTER - | | [...] | | Critical Result called | | [facility] | | | | to and [...] ST. | [address] | [place], [place] | [phone] | | [facility] | | [address] | | | - LABORATORY | | [...] [address] | [place] | [phone] | | [facility] | | [address] | | | - LABORATORY | | [address] | [place] | [phone] | | [facility] | | [address] | | | - LABORATORY | | [...] + | [facility] | [address] | [place], [place] | [phone] | | [facility] | | [address] | | | - LABORATORY | | [...] + | [facility] | [address] | [place] | [phone] | | [facility] | | [address] | | | - LABORATORY | | [...] Pako Evans, | REFERENCE LAB | | [place], [place] [id number] Pull Over Machine Operator: Violette Mcconnell MD, Phone: | LIZ EPSTEIN | | [phone] | | + + + + + + + + | Performing | Address | City/State/Zipcode | Phone Number | | Organization | | | | + + + + + | REFERENCE LAB | [address] | [place] [address] | [phone] | | [facility] | Drive [...] + + | Performed at: [address] [place] [address], | REFERENCE LAB | | [place], [place] [id number] Pull Over Machine Operator: Ernie Lee MD, Phone: | LIZ - TETE | | [phone] | | + + + + + + + + | Performing | Address | City/State/Zipcode | Phone Number | | Organization | | | | + + + + + | REFERENCE LAB | [address] | [place] [address] | [phone] | | [facility] | Drive [...] Culture | No anaerobes isolated. | | [facility] | | | [...] [address] | [place] | [phone] | | [facility] | | [address] | | | - LABORATORY | | [...] [address] | [place] | [phone] | | [facility] | | [address] | | | [...] + + + | Performed at: - [place] [address] [address], | REFERENCE LAB | | [place], [place] [id number] Pull Over Machine Operator: Ernie Lee MD, Phone: | [employer] [facility] | | [phone] Performed at: [address] | | | [place], [place] [id number] Pull Over Machine Operator: Violette Mcconnell MD, | | | Phone: [phone] | | + + + + + + + + | Performing | Address | City/State/Zipcode | Phone Number | | Organization | | | | + + + + + | REFERENCE LAB | [address] | [place] [address] | [phone] | | [facility] | Drive [address] | [place] | [phone] | | [facility] | | [address] | | | - LABORATORY | | [...] | | Nucleated | | cells/uL | [facility] | | | cells | | | MEDICAL | | | | | | CENTER - | | | | | | LABORATORY | | + + + + + + | BF RBC | <2000 | Reference Range | [facility] | | | | | Not | [facility] | | | | | Established | MEDICAL | | | | | cells/uL | CENTER - | | | | | | LABORATORY | | + + + + + + | % | 89.1 | % | [facility] | | | Mononuclear | | | [facility] | | | Cells, | | | MEDICAL | | | Body Fluid | | | CENTER - | | | | | | LABORATORY | | + + + + + + | BF | 10.9 | % | [facility] | | | Polynuclear | | | [facility] | | | % | | | [...] + | [facility] | [address] | [place] | [phone] | | [facility] | | [address] | | | - LABORATORY | | [...] + | [facility] | [address] | [place] | [phone] | | [facility] | | [address] | | | - LABORATORY | | [...] [address] | [place] | [phone] | | [facility] | | [address] | | | - LABORATORY | | [...] | | | FILTRATION | mL/min/1.73m2 | [facility] | | | [place] | RATE,ESTIMATED | | MEDICAL | | | | mL/min/1.92g8Rqrv than | | CENTER - | | [...] (H) | 2.4 - 5.1 mg/dL | [facility] [...] [address] | [place] | [phone] | | [facility] | | [address] | | | - LABORATORY | | [...] [address] | [place] | [phone] | | [facility] | | [address] | | | - [...] | [facility] | [address] | [place] | [phone] | | [facility] | | [address] | | | - LABORATORY | | [...] [address] | [place] | [phone] | | [facility] | | [address] | | | - LABORATORY | | [...] [address] | [place] | [phone] | | [facility] | | [address] | | | - LABORATORY | | [...] + | [facility] | [address] | [place] | [phone] | | [facility] | | [address] | | | - LABORATORY | | | | + + + + + Sedimentation Rate (05/21/2019 4:15 AM PDT) + +--------+ + + + | Component | Value | Ref Range | Performed | Pathologist | | | | | At | Signature | + +--------+ + + + | ESR | 48 (H) | <30 mm/hr | [facility] | [...] [address] | [place] | [phone] | | [facility] | | [address] | | | - LABORATORY | | [...] ST. | [address] | [place] | [phone] | | [facility] | | [address] | | | - LABORATORY | | [...] (H) | 9 - 23 mg/dL | [facility] | | | | | | [facility] | | | | | | MEDICAL | | | | | | CENTER - | | | | | | LABORATORY | | + + + + + + | Creatinine | 7.26 (H) | 0.55 - 1.02 | [place] | | | | | mg/dL | [facility] | | | | | | MEDICAL | | | | | | CENTER - | | | | | | LABORATORY | | + + + + + + | eGFR if not | 6 (L)Comment: GLOMERULAR | >=60 | [place] | | | | FILTRATION | mL/min/1.73m2 | [facility] | | | [place] | RATE,ESTIMATED | | MEDICAL | | | | mL/min/1.68k0Qqye than | | CENTER - | | [address] | [place] | [phone] | | [facility] | | [address] | | | - LABORATORY | | | | + + + + + Procalcitonin (05/21/2019 4:15 AM PDT) + + + + + + | Component | Value | Ref Range | Performed | Pathologist | | | | | At | Signature | + + + + + + | Procalciton | 0.11 | <=0.50 ng/mL | [facility] | | | in | | | [facility] | | [...] + | [facility] | [address] | [place] | [phone] | | [facility] | | [address] | | | - LABORATORY | | [...] | | | Oral Anticoagulation | | Marianela [facility] | | | | Range: 2.0 [...] [address] | [place] | [phone] | | [facility] | | [address] | | | - LABORATORY | | [...] [address] | [place] | [phone] | | [facility] | | [address] | | | - LABORATORY | | | | + + + + + CBC with Differential (05/21/2019 4:15 AM PDT) + + + + + + | Component | Value | Ref Range | Performed | Pathologist | | | | | At | Signature | + + + + + + | WBC | 6.9 | 4.0 - 11.0 K/uL | [facility] [...] [address] | [place] | [phone] | | [facility] | | [address] | | | - LABORATORY | | [...] | this study were reported by the [facility] radiologist on | | | May [...] PHYSICIAN: Gopi Muñoz MD PATIENT NAME: | [place] PATHOLOGY | | ARA CAMPOS GENDER: Mami [...] preparation was | | | performed by [facility] [address] [facility] | | | [place] [address] and [facility] [place] [address] [facility] | | | [place] [address]. Professional interpretation was performed | | | by [employer] - [facility] - [address] | | | [place] [address] (Respiratory Director: Alen Simpson, | | | .; IA#:[id number]).8 Diagnostician: Darcie López M.S., | | | KEELY(ASC), [facility] Field Hand Diagnostician: Alen Kearney | | | Calvin [...] [address] | [place] | [phone] | | [facility] | | [address] | | | - LABORATORY | | [...] [address] | [place] | [phone] | | [facility] | | [address] | | | - LABORATORY | | | | + + + + + C-Reactive Protein (05/20/2019 9:11 PM PDT) + + + + + + | Component | Value | Ref Range | Performed | Pathologist | | | | | At | Signature | + + + + + + | CRP | 51.20 (H) | <10.00 mg/L | [facility] [...] [address] | [place] | [phone] | | [facility] | | [address] | | | - LABORATORY | | [...] | | B-12 | <145 | | STMarianela NERISSA | | | | pg/mLINDETERMINATE: | [...] [address] | [place] | [phone] | | [facility] | | [address] | | | - LABORATORY | | [...] | | | | | uIU/mL | [facility] | | | | [...] + | [facility] | [address] | [place] | [phone] | | [facility] | | [address] | | | - LABORATORY | | [...] | | Screen | | | [facility] | | [...] St | [place] | | | [facility] | | [address] | | | - BLOOD BANK | | | | + + + + + Troponin I (05/20/2019 8:51 PM PDT) + + + + + + | Component | Value | Ref Range | Performed | Pathologist | | | | | At | Signature | + + + + + + | Troponin I | 0.06 (H)Comment: | <0.06 ng/mL | [facility] | | | | Comment:Reference | | [...] | | | | | | [employer] | | | | | [...] ST. | [address] | [place] | [phone] | | [facility] | | [address] | | | - LABORATORY | | | | + + + + + Phosphorus (05/20/2019 8:51 PM PDT) + + + + + + | Component | Value | Ref Range | Performed | Pathologist | | | | | At | Signature | + + + + + + | Phosphorus | 8.8 ()Comment: | 2.4 - 5.1 mg/dL | [facility] | | | | Critical Result called [...] [address] | [place] | [phone] | | [facility] | | [address] | | | - LABORATORY | | [...] BETH | | | | | | [facility] | | | | [...] + | [facility] | [address] | [place] | [phone] | | [facility] | | [address] | | | - LABORATORY | | [...] [address] | [place] | [phone] | | [facility] | | [address] | | | - LABORATORY | | [...] ST. | [address] | [place], [place] | [phone] | | [facility] | | [address] | | | - LABORATORY | | [...] 7.11 (H) | 0.55 - 1.02 | [facility] | | | | | [...] | | MEDICAL | | | | mL/min/1.49d2Ysth than | | CENTER - | | [...] [address] | [place] | [phone] | | [facility] | | [address] | | | - LABORATORY | | [...] [address] | [place] | [phone] | | [facility] | | [address] | | | - LABORATORY | | [...] ST. | [address] | [place], [place] | [phone] | | [facility] | | [address] | | | - LABORATORY | | [...] | | | | 60 Minutes, ONCE, [facility] 05/25/19 at | | | | | | | 0400, For 1 dose, Activate system | | | | | | | and mix before use., | | | | | | | Indications: Osteomyelitis | | | | | | + +---------+ +--------+-------+---+ +---+---+ | | | +---+---+ documented in this encounter
--- OUTSIDE RECORDS SUMMARY | ~2019-07-27 | XMS | Encounter Summary ---
Demographics + + + | Address | [address] | | | [place] [address] | + + + | Home Phone [...] | Author | [facility] | | | and [place] | + + + | Organization | [facility] | | | and [place] | + + + | Address | Unknown | + + + | Phone | Unavailable | + + + Support + + + + + | Name | Relationship | Address | Phone | + + + + + | India Tilley | ECON | [address] | | | | | [place], [place] | | | | | [address] | | + + + + + | Yina La | ECON | Unknown | | + + + + + | Yina Peterson | ECON | Unknown | | + + + + + | Leatha Casillas | ECON | Unknown | | + + + + + Care Team Providers + +------+ + | Care Affiliate Marketing Coordinator Name | Role | Phone | [...] Refill | | | | [address] | [place] | | | | | [place] | [address] | | | | | [address] | | | | | | [phone] | | | +--------+--------+ + + + [...]
--- OUTSIDE RECORDS SUMMARY | ~2019-07-27 | XMS | Encounter Summary ---
Demographics + + + | Address | [address] | | | [place] [address] | + + + | Home Phone [...] | Author | [facility] | | | and [place] | + + + | Organization | [facility] | | | and [place] | + + + | Address | Unknown | + + + | Phone | Unavailable | + + + Support + + + + + | Name | Relationship | Address | Phone | + + + + + | India Tilley | ECON | [address] | | | | | [place], [place] | | | | | [address] | | + + + + + | Yina La | ECON | Unknown | | + + + + + | Yina Peterson | ECON | Unknown | | + + + + + | Leatha Casillas | ECON | Unknown | | + + + + + Care Team Providers + +------+ + | Care Digital Design Engineer Name | Role | Phone [...] W/ | | | | [address] | [facility] | [place] | | 02/05/ | | [place], [place] | [place] [address] | | | 2017 | | [address] | [phone] | | | | | [phone] | | | +--------+---------+ + + + [...] Office Phone Number to Contact Dr Navarro: [phone] Navarro's Office to schedule [...] Wednesday 9:00-2:00PM. Call the General Surgery Office [phone] for the following: Persistent vomiting Diarrhea lasting [...] as possible. Limit sports and strenuous activities [id number]. Shower as usual. Gently wash around your [...] ST. | [address] | [place] | [phone] | | [facility] | | [address] | | | - LABORATORY | | [...] + | [facility] | [address] | [place] | [phone] | | [facility] | | [address] | | | - LABORATORY | | [...] 3.57 (H) | 0.60 - 1.30 | [facility] | | | | | mg/dL | [facility] | | | | | | MEDICAL | | | | | | CENTER - | | | | | | LABORATORY | | + + + + + + | eGFR if not | 13 (L)Comment: | >=60 | [facility] | | | | GLOMERULAR FILTRATION | mL/min/1.73m2 | [facility] | | | EQUATORIAL GUINEAN | RATE,ESTIMATED | | MEDICAL | | | | mL/min/1.08g8Mczk than | | CENTER - | | [...] | [facility] | [address] | [place] | [phone] | | [facility] | | [address] | | | - LABORATORY | | [...] [address] | [place] | [phone] | | [facility] | | [address] | | | - LABORATORY | | [...] agent. | | | Ondansetron IV is cat tender | | | out. If patient cannot [...]
--- OUTSIDE RECORDS SUMMARY | ~2019-07-27 | XMS | Encounter Summary ---
Demographics + + + | Address | [address] | | | [place] [address] | + + + | Home Phone [...] + | Author | [facility] | | | and [place] | + + + | Organization | [facility] | | | and [place] | + + + | Address | Unknown | + + + | Phone | Unavailable | + + + Support + + + + + | Name | Relationship | Address | Phone | + + + + + | India Tilley | ECON | [address] | | | | | [place], [place] | | | | | [address] | | + + + + + | Yina La | ECON | Unknown | | + + + + + | Yina Peterson | ECON | Unknown | | + + + + + | Leatha Casillas | ECON | Unknown | | + + + + + Care Team Providers + +------+ + | Care Hydraulic Billet Maker Name | Role | Phone | + +------+ + PCP | Unavailable | + +------+ + Reason for Visit + + + | Reason | Comments | + + + | Referral | [facility] | + + + Encounter Details +--------+ + + + + | Date | Type | Department | Care Team | Description | +--------+ + + + + | 05/26/ | Documentati | [facility] | Carlos Jansen, | Referral ([facility] | | 2019 | on | INFECTIOUS DISEASES | MD [address] | [facility] | | | | [address] | [place] [address] | [place]) | | | | [place] | [phone] | | | | | [address] | | | | | | [phone] | | | +--------+ + + + [...] 11:27 AM PDTReferral was received 05/18 from [facility] requesting to change ID docs from Dr Min to Dr Jansen per Dr Muñoz's reque st for patient's osteomyelitis. Patient saw Dr Jansen [facility] and upon d/c she was moved to be with family in [place] where she es tablished with Dr Min ID. At time of referral patient had a f/u lyudmila scheduled with [facility]o, t his was later cancelled due to hospitalization. Dr Jansen reviewed patient's records, Eliss is in epic and doesn't feel we have anything t o add to patient's care and thinks she should stay with Pako closer to home. I faxed back his note to [phone]. I did not enter a referral to avoid confusion with anna magaña current referral for [facility]. Will discard additional records in 30 days. documented in this encou nter Plan of Treatment Not on filedocumented as of this encounter Visit Diagnoses Not on filedocumented in this encounter"
--- OUTSIDE RECORDS SUMMARY | ~2019-07-27 | XMS | Encounter Summary ---
Demographics + + + | Address | [address] | | | [place] [address] | + + + | Home Phone [...] | Author | [facility] | | | and [place] | + + + | Organization | [facility] | | | and [place] | + + + | Address | Unknown | + + + | Phone | Unavailable | + + + Support + + + + + | Name | Relationship | Address | Phone | + + + + + | India Tilley | ECON | [address] | | | | | [place], [place] | | | | | [address] | | + + + + + | Yina La | ECON | Unknown | | + + + + + | Yina Peterson | ECON | Unknown | | + + + + + | Leatha Casillas | ECON | Unknown | | + + + + + Care Team Providers + +------+ + | Care Salesperson Jewelry Name | Role | Phone | + [...] | 02/03/ | Office | [facility] | Scott Koroma, | Postop check | | 2019 | Visit | ORTHOPEDIC SURGERY | MD [address] | (Primary Dx) | | | | [address] [facility] | [place] | | | | | [place] | [address] | | | | | [address] | | | | | | [phone] | | | +--------+---------+ + + + [...]
--- OUTSIDE RECORDS SUMMARY | ~2019-07-27 | XMS | Encounter Summary ---
Demographics + + + | Address | [address] | | | [place] [address] | + + + | Home Phone [...] | Author | [facility] | | | and [place] | + + + | Organization | [facility] | | | and [place] | + + + | Address | Unknown | + + + | Phone | Unavailable | + + + Support + + + + + | Name | Relationship | Address | Phone | + + + + + | India Tilley | ECON | [address] | | | | | [place], [place] | | | | | [address] | | + + + + + | Yina La | ECON | Unknown | | + + + + + | Yina Peterson | ECON | Unknown | | + + + + + | Leatha Casillas | ECON | Unknown | | + + + + + Care Team Providers + +------+ + | Care Natural Gas Field Processing Supervisor Name | Role | Phone | [...] | renal | PA-C [address] | [address] | | | | | disease | [address] | [place], [place] | | | | | ([facility]) | [place] | [address] [facility] | | | | | Procedures | [address] | [facility] [place] | | | | | MI ESRD | [facility] | [address] Phone: | | | | | RELATED [place] | [place] | [phone] | | | | | MONTHLY | [address] | Fax: | | | | | 20&/> YR OLD | Phone: | [phone] | | | | | 4/> VISITS | [phone] | | | | | | | Fax: | | | | | | | [phone] | | + +--------+ + + + + Encounter Details +--------+ + + + + | Date | Type | Department | Care Team | Description | +--------+ + + + + | 01/09/ | Off-Site | [facility] | Gopi Muñoz | End stage renal | | 2019 | Visit | NEPHROLOGY [address] | M, DO [address] | disease (HCC) | | | | [address] | [place] | (Primary Dx) | | | | [place] | [place], [place] | | | | | [address] | [address] | | | | | [phone] | | | +--------+ + + + [...] seen at the [facility] [place] on the MWF shift. She is intermittently dysphoric. However sh e denies cramps, hiccups or nausea. She refused to go for rehab after ORIF of her hip at [facility] on 12/04/18. In addition, I personally consulted [...] 11/03/2017 and then was DC to the [facility] [place]. Unfortunately, she h as had intermittent [...] by Gopi Muñoz DO. 01/15/19 14:57 CC: [facility] Scott Koroma MD [facility] [place], [place] tGopi rick DO - 01/09/2019 11:00 AM PD T documented in thi s encounter Plan of Treatment Not on filedocumented as of this encounter Visit Diagnoses + + | Diagnosis | + + | End stage renal disease (HCC) - Primary End stage renal disease | + + documented in this encounter
--- OUTSIDE RECORDS SUMMARY | ~2019-07-27 | XMS | Encounter Summary ---
Demographics + + + | Address | [address] | | | [place] [address] | + + + | Home Phone [...] Author | [facility] | | | and [place] | + + + | Organization | [facility] | | | and [place] | + + + | Address | Unknown | + + + | Phone | Unavailable | + + + Support + + + + + | Name | Relationship | Address | Phone | + + + + + | India Tilley | ECON | [address] | | | | | [place], [place] | | | | | [address] | | + + + + + | Yina La | ECON | Unknown | | + + + + + | Yina Peterson | ECON | Unknown | | + + + + + | Leatha Casillas | ECON | Unknown | | + + + + + Care Team Providers + +------+ + | Care Wharfinger Chief Name | Role | Phone | + +------+ + PCP | Unavailable | + +------+ + Encounter Details +--------+ + + + + | Date | Type | Department | Care Team | Description | +--------+ + + + + | 10/22/ | Hospital | [facility] | Gopi Muñoz | Chronic kidney | | 2018 | Encounter | MED CTR ULTRASOUND | M, DO [address] | disease, stage V | | | | [address] [place] | [address] | ([facility]) | | | | [place], [place] | [place], [place] | | | | | [address] | [id number] | | | | | [phone] | | | | | | | [...] | | BILATERAL | | PST | ([facility]) | results section. | + +--------+ [...]
--- OUTSIDE RECORDS SUMMARY | ~2019-07-27 | XMS | Encounter Summary ---
Demographics + + + | Address | [address] | | | [place] [address] | + + + | Home Phone [...] | [facility] | | | and [place] | + + + | Organization | [facility] | | | and [place] | + + + | Address | Unknown | + + + | Phone | Unavailable | + + + Support + + + + + | Name | Relationship | Address | Phone | + + + + + | India Tilley | ECON | [address] | | | | | [place], [place] | | | | | [address] | | + + + + + | Yina La | ECON | Unknown | | + + + + + | Yina Peterson | ECON | Unknown | | + + + + + | Leatha Casillas | ECON | Unknown | | + + + + + Care Team Providers + +------+ + | Care Office Copy Selector Name | Role | Phone | + +------+ + PCP | Unavailable | + +------+ + Encounter Details +--------+ + + + + | Date | Type | Department | Care Team | Description | +--------+ + + + + | 11/18/ | Hospital | [facility] | Patricia, | | | 2007 - | Encounter | MED CTR CANCER | Venkatesh Forte MD [address] | | | | | [place] [address] | [facility] | | | 12/11/ | | [place] | [place] [address] | | | 2007 | | [address] | [phone] | | | | | [phone] | | | +--------+ + + + [...]
--- OUTSIDE RECORDS SUMMARY | ~2019-07-27 | XMS | Encounter Summary ---
Demographics + + + | Address | [address] | | | [place] [address] | + + + | Home Phone [...] + | Author | [facility] | | | and [place] | + + + | Organization | [facility] | | | and [place] | + + + | Address | Unknown | + + + | Phone | Unavailable | + + + Support + + + + + | Name | Relationship | Address | Phone | + + + + + | India Tilley | ECON | [address] | | | | | [place], [place] | | | | | [address] | | + + + + + | Yina La | ECON | Unknown | | + + + + + | Yina Peterson | ECON | Unknown | | + + + + + | Leatha Casillas | ECON | Unknown | | + + + + + Care Team Providers + +------+ + | Care General Service Technician Name | Role | Phone | [...] + + | 04/04/ | Telephone | [facility] | Zari Azul | Hospital Follow-up | | 2019 | | Internal Medicine | Gregg RN | | | | | Hospitalists [address] | | | | | | [address] [place] | | | | | | [address] | | | | | | [phone] | | | +--------+ + + + [...]
--- OUTSIDE RECORDS SUMMARY | ~2019-07-27 | XMS | Encounter Summary ---
Demographics + + + | Address | [address] | | | [place] [address] | + + + | Home Phone [...] + | [place] T[place] | ECON | [address] | | | | | [place], [place] | | | | | [address] | | + + + + + | Yina La | ECON | Unknown | | + + + + + | Yina Peterson | ECON | Unknown | | + + + + + | Leatha Casillas | ECON | Unknown | | + + + + + Care Team Providers + +------+ + | Care Customer Care Representative Name | Role | Phone | + +------+ + PCP | Unavailable | + +------+ + Encounter Details +--------+ + + + + | Date | Type | Department | Care Team | Description | +--------+ + + + + | 11/08/ | [facility] | [facility] | Provider, | | | 2018 | Exam | MED CTR EXTERNAL | MD [address] | | | | | IMAGING | [address] | | | | | [phone] | [place] [address] | | +--------+ + + + + [...] for comparison only - no result from [place]. | [facility] | + + + + +---------+ + + | Performing | Address | City/State/Zipcode | Phone Number | | Organization | | | | + +---------+ + + | [facility] | | | | + +---------+ + + documented in this encounter Visit Diagnoses Not on filedocumented in this encounter"
--- OUTSIDE RECORDS SUMMARY | ~2019-07-27 | XMS | Encounter Summary ---
Demographics + + + | Address | [address] | | | [place] [address] | + + + | Home Phone [...] | Author | [facility] | | | and [place] | + + + | Organization | [facility] | | | and [place] | + + + | Address | Unknown | + + + | Phone | Unavailable | + + + Support + + + + + | Name | Relationship | Address | Phone | + + + + + | India Tilley | ECON | [address] | | | | | [place], [place] | | | | | [address] | | + + + + + | Yina La | ECON | Unknown | | + + + + + | Yina Peterson | ECON | Unknown | | + + + + + | Leatha Casillas | ECON | Unknown | | + + + + + Care Team Providers + +------+ + | Care Wool Hat Finisher Name | Role | Phone | + [...] + + | 01/05/ | Telephone | [facility] | Santos Stephenson | Appointment | | 2017 | | SURGERY [address] | MD Kinga, FACS [address] | | | | | [place], [place] | [address] [facility] | | | | | [address] | [place] [address] | | | | | [phone] | [phone] | | | | | | | [...]
--- OUTSIDE RECORDS SUMMARY | ~2019-07-27 | XMS | Encounter Summary ---
Demographics + + + | Address | [address] | | | [place] [...] + | Author | [facility] | | | and [place] | + + + | Organization | [facility] | | | and [place] | + + + | Address | Unknown | + + + | Phone | Unavailable | + + + Support + + + + + | Name | Relationship | Address | Phone | + + + + + | India Tilley | ECON | [address] | | | | | [place], [place] | | | | | [address] | | + + + + + | Yina La | ECON | Unknown | | + + + + + | Yina Peterson | ECON | Unknown | | + + + + + | Leatha Casillas | ECON | Unknown | | + + + + + Care Team Providers + +------+ + | Care Machine Chain Maker Name | Role | Phone | [...] + + | 04/03/ | Telephone | [place] | Michelle Lopez | Hospital Follow-up | | 2019 | | Internal Medicine | DO [address] | | | | | Hospitalists [address] | | | | | [address] [place] | [place] [address] | | | | | [address] | [phone] | | | | | [phone] | | | +--------+ + + + [...]
--- OUTSIDE RECORDS SUMMARY | ~2019-07-27 | XMS | Encounter Summary ---
Demographics + + + | Address | [address] | | | [place] [address] | + + + | Home Phone [...] | Author | [facility] | | | and [place] | + + + | Organization | [facility] | | | and [place] | + + + | Address | Unknown | + + + | Phone | Unavailable | + + + Support + + + + + | Name | Relationship | Address | Phone | + + + + + | India Tilley | ECON | [address] | | | | | [place], [place] | | | | | [address] | | + + + + + | Yina La | ECON | Unknown | | + + + + + | Yina Peterson | ECON | Unknown | | + + + + + | Leatha Casillas | ECON | Unknown | | + + + + + Care Team Providers + +------+ + | Care Extraction Operator Name | Role | Phone | + +------+ + PCP | Unavailable | + +------+ + Encounter Details +--------+ + + + + | Date | Type | Department | Care Team | Description | +--------+ + + + + | 02/13/ | Hospital | [facility] | [facility], | | | 2007 - | Encounter | MED CTR CANCER | Venkatesh Forte MD [address] | | | | | [place] [address] | [facility] | | | 03/12/ | | [place], [place] | [place] [address] | | | 2007 | | [address] | [phone] | | | | | [phone] | | | +--------+ + + + [...]
--- OUTSIDE RECORDS SUMMARY | ~2019-07-27 | XMS | Encounter Summary ---
Demographics + + + | Address | [address] | | | [place] [address] | + + + | Home Phone [...] | Author | [facility] | | | and [place] | + + + | Organization | [facility] | | | and [place] | + + + | Address | Unknown | + + + | Phone | Unavailable | + + + Support + + + + + | Name | Relationship | Address | Phone | + + + + + | India Tilley | ECON | [address] | | | | | [place], [place] | | | | | [address] | | + + + + + | Yina La | ECON | Unknown | | + + + + + | Yina Peterson | ECON | Unknown | | + + + + + | Leatha Casillas | ECON | Unknown | | + + + + + Care Team Providers + +------+ + | Care Manager Acquisition Name | Role | Phone | + +------+ + PCP | Unavailable | + +------+ + Encounter Details +--------+ + + + + | Date | Type | Department | Care Team | Description | +--------+ + + + + | 04/16/ | Abstract | [facility] | Darlin Moseley W, | | | 2016 | | NEPHROLOGY [address] | [address] | | | | | [address] | [address] [facility] | | | | | [place] | [place] [address] | | | | | [address] | [phone] | | | | | [phone] | | | +--------+ + + + [...]
--- OUTSIDE RECORDS SUMMARY | ~2019-07-27 | XMS | Encounter Summary ---
Demographics + + + | Address | [address] | | | [place] [address] | + + + | Home Phone [...] Author | [facility] | | | and [place]it[place] | + + + | Organization | [facility] | | | and [place] | + + + | Address | Unknown | + + + | Phone | Unavailable | + + + Support + + + + + | Name | Relationship | Address | Phone | + + + + + | India Tilley | ECON | [address] | | | | | [place], [place] | | | | | [address] | | + + + + + | Yina La | ECON | Unknown | | + + + + + | Yina Peterson | ECON | Unknown | | + + + + + | Leatha Casillas | ECON | Unknown | | + + + + + Care Team Providers + +------+ + | Care Commercial Drafter Name | Role | Phone | + +------+ + PCP | Unavailable | + +------+ + Encounter Details +--------+ + + + + | Date | Type | Department | Care Team | Description | +--------+ + + + + | 05/26/ | Abstract | [facility] | Darlin Moseley W, | | | 2016 | | NEPHROLOGY [address] | [address] | | | | | [address] | [address] [facility] | | | | | [place] | [place] [address] | | | | | [address] | [phone] | | | | | [phone] | | | +--------+ + + + [...] 1.012 | | EXTERNAL | | | [place], | | | LAB | | | [...]
--- OUTSIDE RECORDS SUMMARY | ~2019-07-27 | XMS | Encounter Summary ---
Demographics + + + | Address | [address] | | | [place] [address] | + + + | Home Phone [...] | [facility] | | | and [place]it[place] | + + + | Organization | [facility] | | | and [place] | + + + | Address | Unknown | + + + | Phone | Unavailable | + + + Support + + + + + | Name | Relationship | Address | Phone | + + + + + | India Tilley | ECON | [address] | | | | | [place], [place] | | | | | [address] | | + + + + + | Yina La | ECON | Unknown | | + + + + + | Yina Peterson | ECON | Unknown | | + + + + + | Leatha Casillas | ECON | Unknown | | + + + + + Care Team Providers + +------+ + | Care Research Development Director Name | Role | Phone | [...] + | 03/11/ | Telephone | [facility] | Santos Stephenson | Vascular Access | | 2018 | | SURGERY [address] | MD Kinga, FACS [address] | Problem | | | | [place], [place] | [address] [facility] | | | | | [address] | [place] [address] | | | | | [phone] | [phone] | | | | | | | [...]
--- OUTSIDE RECORDS SUMMARY | ~2019-07-27 | XMS | Encounter Summary ---
Demographics + + + | Address | [address] | | | [place] [address] | + + + | Home Phone [...] | Author | [facility] | | | and [place] | + + + | Organization | [facility] | | | and [place] | + + + | Address | Unknown | + + + | Phone | Unavailable | + + + Support + + + + + | Name | Relationship | Address | Phone | + + + + + | India Tilley | ECON | [address] | | | | | [place], [place] | | | | | [address] | | + + + + + | Yina La | ECON | Unknown | | + + + + + | Ynia Peterson | ECON | Unknown | | + + + + + | Leatha Casillas | ECON | Unknown | | + + + + + Care Team Providers + +------+ + | Care Relief Charge Nurse Name | Role | Phone | [...] + + | 04/03/ | Telephone | [place] | Michelle Lopez | Hospital Follow-up | | 2019 | | Internal Medicine | DO [place] [address] | | | | | Hospitalists [address] | | | | | [address] [place] | [place] [address] | | | | | [address] | [phone] | | | | | [phone] | | | +--------+ + + + [...]
--- OUTSIDE RECORDS SUMMARY | ~2019-07-27 | XMS | Encounter Summary ---
Demographics + + + | Address | [address] | | | [place] [address] | + + + | Home Phone [...] [facility] | | | and [place] | + + + | Organization | [facility] | | | and [place] | + + + | Address | Unknown | + + + | Phone | Unavailable | + + + Support + + + + + | Name | Relationship | Address | Phone | + + + + + | India Tilley | ECON | [address] | | | | | [place], [place] | | | | | [address] | | + + + + + | Yina La | ECON | Unknown | | + + + + + | Yina Peterson | ECON | Unknown | | + + + + + | Leatha Casillas | ECON | Unknown | | + + + + + Care Team Providers + +------+ + | Care Medical Certification Specialist Name | Role | Phone | [...] | renal | PA-C [address] | [address] | | | | | disease | NW | [place], [place] | | | | | ([facility]) | [place] | [address] [facility] | | | | | Procedures | [address] | [facility] [place] | | | | | [place] ESRD | [facility] | [address] Phone: | | | | | RELATED [place] | [place] | [phone] | | | | | MONTHLY | [address] | Fax: | | | | | 20&/> YR OLD | Phone: | [phone] | | | | | 4/> VISITS | [phone] | | | | | | | Fax: | | | | | | | [phone] | | + +--------+ + + + + Encounter Details +--------+ + + + + | Date | Type | Department | Care Team | Description | +--------+ + + + + | 01/09/ | Off-Site | [facility] | Gopi Muñoz | End stage renal | | 2019 | Visit | NEPHROLOGY [address] | M, DO [address] | disease (HCC) | | | | [address] | [place], [address] | (Primary Dx) | | | | [place] | [place], [place] | | | | | [address] | [address] | | | | | [phone] | | | +--------+ + + + [...] Y1 female who was seen at the [facility] [place] on the MWF shift. She is intermittently dysphoric. However sh e denies cramps, hiccups or nausea. She refused to go for rehab after ORIF of her hip at [facility] on 12/04/18. In addition, I personally [...] 11/03/2017 and then was DC to the [facility] [place]. Unfortunately, she h as had intermittent [...] by mouth Three times a week. epoetin karhtik (EPOGEN, PROCRIT) 10,000 units/mL injection Inject 4,000 [...] Gopi Muñoz DO. 01/15/19 14:57 CC: [facility] Scott Koroma MD [facility] [place], [place] tGopi rick DO - 01/09/2019 11:00 AM PD T documented in thi s encounter Plan of Treatment Not on filedocumented as of this encounter Visit Diagnoses + + | Diagnosis | + + | End stage renal disease (HCC) - Primary End stage renal disease | + + documented in this encounter
--- OUTSIDE RECORDS SUMMARY | ~2019-07-27 | XMS | Encounter Summary ---
Demographics + + + | Address | [address] | | | [place] [address] | + + + | Home Phone [...] + + + | Author | and [facility] | | | and [place] | + + + | Organization | and [facility] | | | and [place] | + + + | Address | Unknown | + + + | Phone | Unavailable | + + + Support + + + + + | Name | Relationship | Address | Phone | + + + + + | India Tilley | ECON | [address] | | | | | [place], [...] Team Providers + +------+ + | Care Planisher Name | Role | Phone | + [...] | | | ([facility]) | | | +--------+--------+ + [...] SCREWS | | | | [address] | [place] | | | | | [place] | [address] | | | | | [address] | | | | | | [phone] | | | +--------+---------+ + + + [...] Electronically signed by: Scott Koroma, 12/20/2018 12:05 [facility] Scott Koroma MD at 05/2019 12:10 PM PDTdocumented in this encounter Discharge Instructions Instructions Gopi Muñoz DO - . Please keep your [facility] HD appt[facility] for 12/12/2018. 2. Call our Office if you change your mind and wish to go to [facility] , for further R ehab. [...] might be d ifferent from the original. [facility] [address] [place] [address] PROGRESS NOTE Pt. Name/Age/: Estefani Tilley 73 y.o. 1945 Med. Record Number: [id number] Date of admission: 12/04/2018 NEPHROLOGY HPI - [...] HD tomorrow and assess for DC soon. [facility] Amol Green MD - 12/08/2018 [...] going to any Rehab. Ctr after DC. [facility] Scott Tadeo MD - 12/07/2018 [...] rick, DO - 12/06/2018 5:33 PM PDT [facility] [address] [place] [address] PROGRESS NOTE Pt. Name/Age/: Estefani Tilley 73 y.o. 1945 Med. Record Number: [id number] Date of admission: 12/04/2018 NEPHROLOGY HPI - [...] Lungs: Prolonged expiratory phase, with findings of [employer] rales lower 1/4 both lungs. Abdomen: Soft, [...] to go home when felt ap propriate [facility] Scott Tadeo MD - 12/06/2018 [...] did not want to answer medication history service desk technician's questions; eliud ignacioifel d her name. Answered questions with head nods or patients stating that she was not taking a medication. Medication: Prior to Admission Sig: Patient taking differently RECONCILIATION ANALYST as: Atorvastatin 20 mg tablet Take 1 [...] idea what this medication was Best possible RECONCILIATION ANALYST medication list after pharmacy review: PT REPORTED [...] into the vein Three times a w [place]. Historical Provider, epoetin karthik (EPOGEN, PROCRIT) 10,000 [...] performed and electronically signed by Kerry Jordan, Braiding Machine Tender 12/05/2018 14:45 Reviewed by Flora Watts, PharmD [...] R?MRN: | | | | | | [id number] | | | [id number] | | | riteri | | | [...] | | | St. | | | [place] | | | y | | | [...] | | | [facility] | | | [place] | | | 3 0 | | | [facility] | | | St. | | | [place] | | | y | | | [...] | | | St. | | | [place] | | | y H. | | [...] | | e of | | | kenaitze | | | | | | mckeon [...] | | | St. | | | [place] | | | y H. | | [...] the | | | | | | roasterman | | | al | | | [...] | | | St. | | | [place] | | | y H. | | [...] | | e of | | | kenaitze | | | | | | mckeon [...] | | | [facility] | | | [place] | | | [place] | | | ID | | | [...] | | | [facility] | | | [place] | | | [place] | | | ID | | | [...] | | | [facility] | | | [place] | | | [place] | | | ID | | | [...] | | | [facility] | | | [place] | | | [place] | | | ID | | | [...] | | | [facility] | | | [place] | | | [place] | | | ID | | | [...] | | | [facility] | | | [facility] | | | | | | HEALTH [...] | | | [id number] | | | [id number] | | | [id number] | | | [...] + | [facility] | [address] | [place] | [phone] | | [facility] | | [address] | | | - LABORATORY | | [...] [address] | [place] | [phone] | | [facility] | | [address] | | | - LABORATORY | | [...] + | [facility] | [address] | [place] | [phone] | | [facility] | | [address] | | | - LABORATORY | | [...] POC | | | [facility] | | | | | | MEDICAL [...] [address] | [place] | [phone] | | [facility] | | [address] | | | - LABORATORY | | [...] [address] | [place] | [phone] | | [facility] | | [address] | | | - LABORATORY | | [...] [address] | [place] | [phone] | | [facility] | | [address] | | | - LABORATORY | | [...] ST. | [address] | [place], [place] | [phone] | | [facility] | | [address] | | | - LABORATORY | | [...] | | K/uL | [facility] | | | | | | MEDICAL [...] [address] | [place] | [phone] | | [facility] | | [address] | | | - LABORATORY | | [...] + | [facility] | [address] | [place] | [phone] | | [facility] | | [address] | | | - LABORATORY | | [...] [address] | [place] | [phone] | | [facility] | | [address] | | | - LABORATORY | | [...] [address] | [place] | [phone] | | [facility] | | [address] | | | - LABORATORY | | [...] [address] | [place] | [phone] | | [facility] | | [address] | | | - LABORATORY | | [...] + | [facility] | [address] | [place] | [phone] | | [facility] | | [address] | | | - LABORATORY | | [...] A1c | | | [facility] | | | | | | MEDICAL [...] [address] | [place] | [phone] | | [facility] | | [address] | | | - LABORATORY | | [...] | | | | g/dL | [facility] | | | | [...] + | [facility] | [address] | [place] | [phone] | | [facility] | | [address] | | | - LABORATORY | | [...] [address] | [place] | [phone] | | [facility] | | [address] | | | - LABORATORY | | [...] [address] | [place] | [phone] | | [facility] | | [address] | | | - LABORATORY | | [...] + | [facility] | [address] | [place] | [phone] | | [facility] | | [address] | | | - LABORATORY | | [...] [address] | [place] | [phone] | | [facility] | | [address] | | | - LABORATORY | | [...] [address] | [place] | [phone] | | [facility] | | [address] | | | - LABORATORY | | [...] [address] | [place] | [phone] | | [facility] | | [address] | | | - LABORATORY | | [...] + | [facility] | [address] | [place] | [phone] | | [facility] | | [address] | | | - LABORATORY | | [...] mL/min/1.73m2 | [facility] | | | [place] | | | MEDICAL | | | [...] [address] | [place] | [phone] | | [facility] | | [address] | | | - LABORATORY | | [...] + | [facility] | [address] | [place] | [phone] | | [facility] | | [address] | | | - LABORATORY | | [...] [address] | [place] | [phone] | | [facility] | | [address] | | | - LABORATORY | | [...] + + | Performing | Address | City/State/[facility] | Phone Number | | Organization | | | | + + + + + | [facility] | [address] | [place] | [phone] | | [facility] | | [address] | | | - LABORATORY | | [...] [address] | [place] | [phone] | | [facility] | | [address] | | | - LABORATORY | | [...] + | [facility] | [address] | [place] | [phone] | | [facility] | | [address] | | | - LABORATORY | | [...] + | [facility] | [address] | [place] | [phone] | | [facility] | | [address] | | | - LABORATORY | | [...] [address] | [place] | [phone] | | [facility] | | [address] | | | - LABORATORY | | [...] [facility] | | | | | | [facility] | | | | | | [...] mL/min/1.73m2 | [facility] | | | [place] | | | MEDICAL | | | [...] ST. | [address] | [place], [place] | [phone] | | [facility] | | [address] | | | - LABORATORY | | [...] [address] | [place] | [phone] | | [facility] | | [address] | | | - LABORATORY | | [...] scheduled: AC, NPO, Daytime | | | 4326-7519 Use NIGHT DOSE for | | | doses scheduled: HS, 3AM, | | | Nighttime 2556-8891, | | + +---+ | | | [...] | | | HR < 60, Starting [place] 12/04/18 at | | | | | [...]
--- OUTSIDE RECORDS SUMMARY | ~2019-07-27 | XMS | Encounter Summary ---
Demographics + + + | Address | [address] | | | [place] [address] | + + + | Home Phone [...] + | Author | [facility] | | | and [place] | + + + | Organization | [facility] | | | and [place] | + + + | Address | Unknown | + + + | Phone | Unavailable | + + + Support + + + + + | Name | Relationship | Address | Phone | + + + + + | India Tilley | ECON | [address] | | | | | [place], [place] | | | | | [address] | | + + + + + | Yina La | ECON | Unknown | | + + + + + | Yina Peterson | ECON | Unknown | | + + + + + | Leatha Casillas | ECON | Unknown | | + + + + + Care Team Providers + +------+ + | Care Finisher Special Stocks Name | Role | Phone | + [...] | Surgery | kidney | DO [address] | [address] | | | | | disease, | [place], [place] | [address] | | | | | stage V | [address] [place] | [place], | | | | | ([facility]) | [place] | [place] [address] | | | | | | [address] | Phone: | | | | | | Phone: | [phone] | | | | | | [phone] | Fax: | | | | | | Fax: | [phone] | | | | | | [phone] | | +--------+ + + + + + Encounter Details +--------+---------+ + + + | Date | Type | Department | Care Team | Description | +--------+---------+ + + + | 04/04/ | Office | [facility] | Santos Stephenson | Chronic kidney | | 2018 | Visit | SURGERY [address] | MD Kinga, FACS [address] | disease, stage V | | | | [place], [place] | [address] [facility] | (HCC) (Primary Dx) | | | | [address] | [place] [address] | | | | | [phone] | [phone] | | | | | | | [...] Placement; Surgeon: Nora Leo MD; Location : [facility] MAIN OR SHUNT PLACEMENT/INSERTION Right 02/04/2018 Procedure: INSERTION SHUNT HEMODIALYSIS W/ PERMACATH; Surgeon: Heather Navarro MD; L ocation: [facility] MAIN OR VEIN SURGERY Right 01/04/2018 Procedure: Right Transposed Basilic Vein to Proximal Radial Artery; Surgeon: Santos Stephenson MD, FACS; Location: [facility] MAIN OR Allergies Allergen Reactions Lisinopril Pt [...] can shower tomorrow. Patient to follow with general operations manager and primary care. I will be [...]
--- OUTSIDE RECORDS SUMMARY | ~2019-07-27 | XMS | Encounter Summary ---
Demographics + + + | Address | [address] | | | [place] [address] | + + + | Home Phone [...] | Author | [facility] | | | and [place]it[place] | + + + | Organization | [facility] | | | and [place] | + + + | Address | Unknown | + + + | Phone | Unavailable | + + + Support + + + + + | Name | Relationship | Address | Phone | + + + + + | India Tilley | ECON | [address] | | | | | [place], [place] | | | | | [address] | | + + + + + | Yina La | ECON | Unknown | | + + + + + | Yina Peterson | ECON | Unknown | | + + + + + | Leatha Casillas | ECON | Unknown | | + + + + + Care Team Providers + +------+ + | Care Battery Assembler Name | Role | Phone | [...] + + | 12/29/ | Telephone | [facility] | Santos Stephenson | Appointment | | 2017 | | SURGERY [address] | MD Kinga, FACS [address] | | | | | [place], [place] | [address] [facility] | | | | | [address] | [place] [address] | | | | | [phone] | | | | | | | [...]
--- OUTSIDE RECORDS SUMMARY | ~2019-07-27 | XMS | Encounter Summary ---
Demographics + + + | Address | [address] | | | [place] [address] | + + + | Home Phone [...] + | Author | [facility] | | | and [place] | + + + | Organization | [facility] | | | and [place] | + + + | Address | Unknown | + + + | Phone | Unavailable | + + + Support + + + + + | Name | Relationship | Address | Phone | + + + + + | India Tilley | ECON | [address] | | | | | [place], [place] | | | | | [address] | | + + + + + | Yina La | ECON | Unknown | | + + + + + | Yina Peterson | ECON | Unknown | | + + + + + | Leatha Casillas | ECON | Unknown | | + + + + + Care Team Providers + +------+ + | Care Materials Specialist Name | Role | Phone | [...] | | [address] | [place], [address] | ([facility]) (Primary Dx) | | | | [place], [place] | [place], [place] | | | | | [address] | [address] | | | | | [phone] | | | +--------+ + + + [...] PSTLabs for upcoming nephrology [facility] signed by Celeste Butler RN at [...]
--- OUTSIDE RECORDS SUMMARY | ~2019-07-27 | XMS | Encounter Summary ---
Demographics + + + | Address | [address] | | | [place] [address] | + + + | Home Phone [...] + | Author | [facility] | | | and [place] | + + + | Organization | [facility] | | | and [place] | + + + | Address | Unknown | + + + | Phone | Unavailable | + + + Support + + + + + | Name | Relationship | Address | Phone | + + + + + | India Tilley | ECON | [address] | | | | | [place], [place] | | | | | [address] | | + + + + + | Yina La | ECON | Unknown | | + + + + + | Yina Peterson | ECON | Unknown | | + + + + + | Leatha Casillas | ECON | Unknown | | + + + + + Care Team Providers + +------+ + | Care Outsole Flexer Name | Role | Phone | + +------+ + PCP | Unavailable | + +------+ + Encounter Details +--------+ + + + + | Date | Type | Department | Care Team | Description | +--------+ + + + + | 10/27/ | Abstract | [facility] | Gopi Muñoz | | | 2017 | | NEPHROLOGY [address] | M, DO [address] | | | | | [address] [facility] | [place], [facility] 100 | | | | | [place], [place] | [place] | | | | | [address] | [address] | | | | | [phone] | | | +--------+ + + + [...]
--- OUTSIDE RECORDS SUMMARY | ~2019-07-27 | XMS | Encounter Summary ---
Demographics + + + | Address | [address] | | | [place] [address] | + + + | Home Phone [...] | Author | [facility] | | | and [place] | + + + | Organization | [facility] | | | and [place] | + + + | Address | Unknown | + + + | Phone | Unavailable | + + + Support + + + + + | Name | Relationship | Address | Phone | + + + + + | India Tilley | ECON | [address] | | | | | [place], [place] | | | | | [address] | | + + + + + | Yina La | ECON | Unknown | | + + + + + | Yina Peterson | ECON | Unknown | | + + + + + | Leatha Casillas | ECON | Unknown | | + + + + + Care Team Providers + +------+ + | Care Entry Analyst Name | Role | Phone | [...] NEPHROLOGY [address] | M, DO [address] [place] | Problem | | | | [address] | [place], [address] | | | | | [place] | [place] | | | | | [address] | [address] | | | | | [phone] | | | +--------+ + + + [...]
--- OUTSIDE RECORDS SUMMARY | ~2019-07-27 | XMS | Encounter Summary ---
Demographics + + + | Address | [address] | | | [place] [address] | + + + | Home Phone [...] + | Author | [facility] | | | and [place] | + + + | Organization | [facility] | | | and [place] | + + + | Address | Unknown | + + + | Phone | Unavailable | + + + Support + + + + + | Name | Relationship | Address | Phone | + + + + + | India Tilley | ECON | [address] | | | | | [place], [place] | | | | | [address] | | + + + + + | Yina La | ECON | Unknown | | + + + + + | Yina Peterson | ECON | Unknown | | + + + + + | Leatha Casillas | ECON | Unknown | | + + + + + Care Team Providers + +------+ + | Care Media Coordinator Name | Role | Phone | [...] + + | 06/01/ | Telephone | [facility] [place] | Darlin Moseley W, | Nephrology | | 2017 | | NEPHROLOGY [address] | [address] | Appointment | | | | [address] [facility] | [address] [place] | | | | | [place] | [place] [address] | | | | | [address] | [phone] | | | | | [phone] | | | +--------+ + + + [...]
--- OUTSIDE RECORDS SUMMARY | ~2019-07-27 | XMS | Encounter Summary ---
Demographics + + + | Address | [address] | | | [place] [address] | + + + | Home Phone [...] Author | [facility] | | | and [place] | + + + | Organization | [facility] | | | and [place] | + + + | Address | Unknown | + + + | Phone | Unavailable | + + + Support + + + + + | Name | Relationship | Address | Phone | + + + + + | India Tilley | ECON | [address] | | | | | [place], [place] | | | | | [address] | | + + + + + | Yina La | ECON | Unknown | | + + + + + | Yina Peterson | ECON | Unknown | | + + + + + | Leatha Casillas | ECON | Unknown | | + + + + + Care Team Providers + +------+ + | Care Gamer Name | Role | Phone | + [...] NEPHROLOGY [address] | M, DO [address] | | | | | [address] | [place] | | | | | [place], [place] | [place] | | | | | [address] | [address] | | | | | [phone] | | | +--------+ + + + [...]
--- OUTSIDE RECORDS SUMMARY | ~2019-07-27 | XMS | Encounter Summary ---
Demographics + + + | Address | [address] | | | [place] [address] | + + + | Home Phone [...] | [facility] | | | and [place] | + + + | Organization | [facility] | | | and [place] | + + + | Address | Unknown | + + + | Phone | Unavailable | + + + Support + + + + + | Name | Relationship | Address | Phone | + + + + + | India Tilley | ECON | [address] | | | | | [place], [place] | | | | | [address] | | + + + + + | Yina La | ECON | Unknown | | + + + + + | Yina Peterson | ECON | Unknown | | + + + + + | Leatha Casillas | ECON | Unknown | | + + + + + Care Team Providers + +------+ + | Care Product Management Analyst Name | Role | Phone [...] | | | | renal | PA-C [address] | [address] [place] [address] | | | | | disease | | [address] | | | | | ([facility]) | CONFEDERATED | [address] | | | | | Procedures | WAY | [place] | | | | | [place] OFFICE | [place], | [address] Phone: | | | | | OUTPATIENT | [place] [address] | [phone] | | | | | VISIT 25 | Phone: | Fax: | | | | | MINUTES | [phone] | [phone] | | | | | | Fax: | | | | | | | [phone] | | +--------+--------+ + + + + Encounter Details +--------+ + + + + | Date | Type | Department | Care Team | Description | +--------+ + + + + | 04/25/ | Off-Site | [facility] | Gopi Muñoz | End stage renal | | 2018 | Visit | NEPHROLOGY [address] | M, DO [address] | disease (HCC) | | | | [address] | [place], [place] [address] | (Primary Dx) | | | | [place] | [place] | | | | | [address] | [address] | | | | | [phone] | | | +--------+ + + + [...] to HTN and diabetic glomerulosclerosis at the [facility]. She also has depression, long [...] in touch with the CHR at the [facility], and she states that "she has not. " She will not provide a direct answer why she does not confer directly with [facility] for better resources? She de [...] candidate to get in touch with a habematolel food service sales representatives at the [facility] for some immediate madiha tance. 2. [...] here in the [facility]. : [place]. Santos Stephenson MD, [facility] documented in thi s encounter Plan of Treatment Not on filedocumented as of this encounter Visit Diagnoses + + | Diagnosis | + + | End stage renal disease (HCC) - Primary End stage renal disease | + + documented in this encounter
--- OUTSIDE RECORDS SUMMARY | ~2019-07-27 | XMS | Encounter Summary ---
Demographics + + + | Address | [address] | | | [place] [address] | + + + | Home Phone [...] | Author | [facility] | | | and [place] | + + + | Organization | [facility] | | | and [place] | + + + | Address | Unknown | + + + | Phone | Unavailable | + + + Support + + + + + | Name | Relationship | Address | Phone | + + + + + | India Tilley | ECON | [address] | | | | | [place], [place] | | | | | [address] | | + + + + + | Yina La | ECON | Unknown | | + + + + + | Yina Peterson | ECON | Unknown | | + + + + + | Leatha Casillas | ECON | Unknown | | + + + + + Care Team Providers + +------+ + | Care Manpower Development Specialist Manager Name | Role | Phone | + +------+ + PCP | Unavailable | + +------+ + Encounter Details +--------+ + + + + | Date | Type | Department | Care Team | Description | +--------+ + + + + | 01/10/ | Off-Site | [facility] | Gopi Muñoz | End stage renal | | 2018 | Visit | NEPHROLOGY [address] | M, DO [address] | disease (HCC) | | | | [address] | [place], [address] | (Primary Dx) | | | | [place], [place] | [place], [place] | | | | | [address] | [address] | | | | | [phone] | | | +--------+ + + + [...] HTN and diabetic glomerul osclerosis at the [facility]. She also [...]
--- OUTSIDE RECORDS SUMMARY | ~2019-07-27 | XMS | Encounter Summary ---
Demographics + + + | Address | [address] | | | [place] [address] | + + + | Home Phone [...] Author | [facility] | | | and [place] | + + + | Organization | [facility] | | | and [place] | + + + | Address | Unknown | + + + | Phone | Unavailable | + + + Support + + + + + | Name | Relationship | Address | Phone | + + + + + | India Tilley | ECON | [address] | | | | | [place], [place] | | | | | [address] | | + + + + + | Yina La | ECON | Unknown | | + + + + + | Yina Peterson | ECON | Unknown | | + + + + + | Leatha Casillas | ECON | Unknown | | + + + + + Care Team Providers + +------+ + | Care Miner Operator Name | Role | Phone | + +------+ + PCP | Unavailable | + +------+ + Encounter Details +--------+ + + + + | Date | Type | Department | Care Team | Description | +--------+ + + + + | 01/15/ | Hospital | [facility] | | | | 2006 - | Encounter | MED CTR CANCER | | | | | | CENTER [facility] [address] | | | | 02/10/ | | [place] | | | | 2006 | | [address] | | | | | | [phone] | | | +--------+ + + + [...]
--- OUTSIDE RECORDS SUMMARY | ~2019-07-27 | XMS | Encounter Summary ---
Demographics + + + | Address | [address] | | | [place] [address] | + + + | Home Phone [...] | Author | [facility] | | | and [place] | + + + | Organization | [facility] | | | and [place] | + + + | Address | Unknown | + + + | Phone | Unavailable | + + + Support + + + + + | Name | Relationship | Address | Phone | + + + + + | India Tilley | ECON | [address] | | | | | [place], [place] | | | | | [address] | | + + + + + | Yina La | ECON | Unknown | | + + + + + | Yina Peterson | ECON | Unknown | | + + + + + | Leatha Casillas | ECON | Unknown | | + + + + + Care Team Providers + +------+ + | Care Music Copyist Name | Role | Phone | + [...] | Surgery | kidney | DO [address] | [address] | | | | | disease, | [place], [place] | [address] | | | | | stage V | [address] [place] | [place], | | | | | ([facility]) | [place] | [place] [address] | | | | | | [address] | Phone: | | | | | | Phone: | [phone] | | | | | | [phone] | Fax: | | | | | | Fax: | [phone] | | | | | | [phone] | | +--------+ + + + + + Encounter Details +--------+---------+ + + + | Date | Type | Department | Care Team | Description | +--------+---------+ + + + | 03/10/ | Office | [facility] | Santos Stephenson | Chronic kidney | | 2018 | Visit | SURGERY [address] | MD Kinga, FACS [address] | disease, stage V | | | | [place], [place] | [address] [facility] | (HCC) (Primary Dx); | | | | [address] | [facility] [place] [address] | Post-operative state | | | | [phone] | [phone] | | | | | | | [...] She has been going to dialysis in [place], [place] , states things are going well. [...] REPORT: PATIENT NAME : Estefani Tilley EQUIPMENT: Immediately-Adreimao with 10-5 mHertz probe. INDICATIONS: S/P Right [...] RIGHT IJ catheter. Patient to follow with support dba and primary care. I will be available [...]
--- OUTSIDE RECORDS SUMMARY | ~2019-07-27 | XMS | Encounter Summary ---
Demographics + + + | Address | [address] | | | [place] [address] | + + + | Home Phone [...] Author | [facility] | | | and [place] | + + + | Organization | [facility] | | | and [place] | + + + | Address | Unknown | + + + | Phone | Unavailable | + + + Support + + + + + | Name | Relationship | Address | Phone | + + + + + | India Tilley | ECON | [address] | | | | | [place], [place] | | | | | [address] | | + + + + + | Yina La | ECON | Unknown | | + + + + + | Yina Peterson | ECON | Unknown | | + + + + + | Leatha Casillas | ECON | Unknown | | + + + + + Care Team Providers + +------+ + | Care Histology Supervisor Name | Role | Phone | [...] | [address] | [address], [place] | | | | | [place] | [address] [place] | | | | | [address] | [address] | | | | | [phone] | | | +--------+ + + + [...] PDTOutside record: Renal ultrasound, dos: 03/29/17. From [facility]. Sent to scan.Electronically signed by Tatiana Rendon at 03/29 4:46 PM PDTdocumented in this encounter Plan of Treatment Not on filedocumented as of this encounter Visit Diagnoses Not on filedocumented in this encounter"
--- OUTSIDE RECORDS SUMMARY | ~2019-07-27 | XMS | Encounter Summary ---
Demographics + + + | Address | [address] | | | [place] [address] | + + + | Home Phone [...] | [facility] | | | and [place] | + + + | Organization | [facility] | | | and [place] | + + + | Address | Unknown | + + + | Phone | Unavailable | + + + Support + + + + + | Name | Relationship | Address | Phone | + + + + + | India Tilley | ECON | [address] | | | | | [place], [place] | | | | | [address] | | + + + + + | Yina La | ECON | Unknown | | + + + + + | Yina Peterson | ECON | Unknown | | + + + + + | Leatha Casillas | ECON | Unknown | | + + + + + Care Team Providers + +------+ + | Care Service Order Dispatcher Name | Role | Phone | + [...] | [address] | [address], [place] | | | | | [place] | [address] [place] | | | | | [address] | [address] | | | | | [phone] | | | +--------+ + + + [...]
--- OUTSIDE RECORDS SUMMARY | ~2019-07-27 | XMS | Encounter Summary ---
Demographics + + + | Address | [address] | | | [place] [address] | + + + | Home Phone [...] Author | [facility] | | | and [place] | + + + | Organization | [facility] | | | and [place] | + + + | Address | Unknown | + + + | Phone | Unavailable | + + + Support + + + + + | Name | Relationship | Address | Phone | + + + + + | India Tilley | ECON | [address] | | | | | [place], [place] | | | | | [address] | | + + + + + | Yina La | ECON | Unknown | | + + + + + | Yina Peterson | ECON | Unknown | | + + + + + | Leatha Casillas | ECON | Unknown | | + + + + + Care Team Providers + +------+ + | Care Curtain Cleaner Name | Role | Phone | + +------+ + PCP | Unavailable | + +------+ + Encounter Details +--------+---------+ + + + | Date | Type | Department | Care Team | Description | +--------+---------+ + + + | 01/04/ | Surgery | [facility] | Santos Stephenson | Right Transposed | | 2018 | | MED CTR OR INTRA OP | MD Kinga, FACS [address] | Basilic Vein to | | | | [address] | [address] [place] | Proximal Radial | | | | [place], [place] | [place] [address] | Artery | | | | [address] | [phone] | | | | | [phone] | | | +--------+---------+ + + + [...] what medicines and drugsyou take. This includes xyce-obk-lqk nter medicines, herbs, supplements, alcohol or other [...] ke ep you safe. Date Last Reviewed: 08/13/201619991451-3177 [employer]. [address] [place] [address]. All righ ts reserved. This information is not intended as a substitute for professional medical care. Always follow your healthcare professional's instructions. [facility] POST-OP INSTRUCTIONS: Arterio-Venous Fistula 1. [...] | | | | | PDT | ([facility]) (N18.5) | | + +--------+ [...] [address] | [place] | [phone] | | [facility] | | [address] | | | - LABORATORY | | [...] + | [facility] | [address] | [place] | [phone] | | [facility] | | [address] | | | - LABORATORY | | [...] | [address] | [place] | [phone] | | [facility] | | [address] | | | - LABORATORY | | [...] [address] | [place] | [phone] | | [facility] | | [address] | | | - LABORATORY | | [...] mL/min/1.73m2 | [facility] | | | [facility] | RATE,ESTIMATED | | MEDICAL | | | | mL/min/1.47j6Mnbd than | | CENTER - | | [...] [address] | [place] | [phone] | | [facility] | | [address] | | | - LABORATORY | | [...]
--- OUTSIDE RECORDS SUMMARY | ~2019-07-27 | XMS | Encounter Summary ---
Demographics + + + | Address | [address] | | | [place] [address] | + + + | Home Phone [...] + | India Tilley | ECON | [address] | | | | | [place], [place] | | | | | [address] | | + + + + + | Yina La | ECON | Unknown | | + + + + + | Yina Peterson | ECON | Unknown | | + + + + + | Leatha Casillas | ECON | Unknown | | + + + + + Care Team Providers + +------+ + | Care Construction Specialist Name | Role | Phone | + +------+ + PCP | Unavailable | + +------+ + Encounter Details +--------+ + + + + | Date | Type | Department | Care Team | Description | +--------+ + + + + | 06/19/ | Telephone | [facility] | Ibis Arriola | | | 2019 | | [facility] | L, RN | | | | | [address] | | | | | | [place] | | | | | | [address] | | | | | | [phone] | | | +--------+ + + + [...]
--- OUTSIDE RECORDS SUMMARY | ~2019-07-27 | XMS | Encounter Summary ---
Demographics + + + | Address | [address] | | | [place] [address] | + + + | Home Phone [...] [facility] | | | and [place] | + + + | Organization | [facility] | | | and [place] | + + + | Address | Unknown | + + + | Phone | Unavailable | + + + Support + + + + + | Name | Relationship | Address | Phone | + + + + + | India Tilley | ECON | [address] | | | | | [place], [place] | | | | | [address] | | + + + + + | Yina La | ECON | Unknown | | + + + + + | Yina Peterson | ECON | Unknown | | + + + + + | Leatha Casillas | ECON | Unknown | | + + + + + Care Team Providers + +------+ + | Care Film Recordist Name | Role | Phone | + +------+ + PCP | Unavailable | + +------+ + Encounter Details +--------+ + + + + | Date | Type | Department | Care Team | Description | +--------+ + + + + | 05/16/ | Abstract | [facility] | Gopi Muñoz | | | 2018 | | NEPHROLOGY [address] | M, DO [address] | | | | | [address] [facility] | [place], [facility] 100 | | | | | [place], [place] | [place] | | | | | [address] | [address] | | | | | [phone] | | | +--------+ + + + [...]
--- OUTSIDE RECORDS SUMMARY | ~2019-07-27 | XMS | Encounter Summary ---
Demographics + + + | Address | [address] | | | [place] [address] | + + + | Home Phone [...] Author | [facility] | | | and [place] | + + + | Organization | [facility] | | | and [place] | + + + | Address | Unknown | + + + | Phone | Unavailable | + + + Support + + + + + | Name | Relationship | Address | Phone | + + + + + | India Tilley | ECON | [address] | | | | | [place], [place] | | | | | [address] | | + + + + + | Yina La | ECON | Unknown | | + + + + + | Yina Peterson | ECON | Unknown | | + + + + + | Leatha Casillas | ECON | Unknown | | + + + + + Care Team Providers + +------+ + | Care Custodial Aide Name | Role | Phone | + +------+ + PCP | Unavailable | + +------+ + Encounter Details +--------+ + + + + | Date | Type | Department | Care Team | Description | +--------+ + + + + | 07/22/ | Hospital | [facility] | Gopi Muñoz | | | 2005 | Encounter | MED CTR XRAY [address] | M, DO [address] | | | | | [place] | [place] | | | | | [place] [address] | [place] | | | | | [phone] | [address] | | | | | [...]
--- OUTSIDE RECORDS SUMMARY | ~2019-07-27 | XMS | Encounter Summary ---
Demographics + + + | Address | [address] | | | [place] [address] | + + + | Home Phone [...] | Author | [facility] | | | and [place] | + + + | Organization | [facility] | | | and [place] | + + + | Address | Unknown | + + + | Phone | Unavailable | + + + Support + + + + + | Name | Relationship | Address | Phone | + + + + + | India Tilley | ECON | [address] | | | | | [place], [place] | | | | | [address] | | + + + + + | Yina La | ECON | Unknown | | + + + + + | Yina Peterson | ECON | Unknown | | + + + + + | Leatha Casillas | ECON | Unknown | | + + + + + Care Team Providers + +------+ + | Care Cnc Mill Operator Name | Role | Phone [...] | | | | renal | PA-C [address] | [address] [place] [address] | | | | | disease | | [place] | | | | | ([facility]) | CONFEDERATED | [address] | | | | | Procedures | WAY | [place] | | | | | NE OFFICE | [place], | [address] Phone: | | | | | OUTPATIENT | [place] [address] | [phone] | | | | | VISIT 25 | Phone: | Fax: | | | | | MINUTES | [phone] | [phone] | | | | | | Fax: | | | | | | | [phone] | | +--------+--------+ + + + + Encounter Details +--------+ + + + + | Date | Type | Department | Care Team | Description | +--------+ + + + + | 02/28/ | Off-Site | [facility] | Gopi Muñoz | End stage renal | | 2018 | Visit | NEPHROLOGY [address] | M, DO [address] | disease (HCC) | | | | [address] | [place], [address] | (Primary Dx) | | | | [place] | [place] | | | | | [address] | [address] | | | | | [phone] | | | +--------+ + + + [...] to HTN and diabetic glomerulosclerosis at the [facility]. She also has depression, long standing [...] Will recheck her in 2 weeks. : [place]. Santos Stephenson MD, [facility] documented in thi s encounter Plan of Treatment Not on filedocumented as of this encounter Visit Diagnoses + + | Diagnosis | + + | End stage renal disease (HCC) - Primary End stage renal disease | + + documented in this encounter"
--- OUTSIDE RECORDS SUMMARY | ~2019-07-27 | XMS | Encounter Summary ---
Demographics + + + | Address | [address] | | | [place] [address] | + + + | Home Phone | | + + + | Preferred Language | Unknown | + + + | Marital Status | Single | + + + | Pentecostal Affiliation | Unknown | + + + | Race | Unknown | + + + | Ethnic Group | Unknown | + + + Author + + + | Author | [facility] | | | and [place] | + + + | Organization | [facility] | | | and [place] | + + + | Address | Unknown | + + + | Phone | Unavailable | + + + Support + + + + + | Name | Relationship | Address | Phone | + + + + + | India Tilley | ECON | [address] | | | | | [place], [place] | | | | | [address] | | + + + + + | Yina La | ECON | Unknown | | + + + + + | Yina Peterson | ECON | Unknown | | + + + + + | Leatha Casillas | ECON | Unknown | | + + + + + Care Team Providers + +------+ + | Care Pulmonologist/Intensivist Name | Role | Phone | + +------+ + PCP | Unavailable | + +------+ + Encounter Details +--------+ + + + + | Date | Type | Department | Care Team | Description | +--------+ + + + + | 09/09/ | Hospital | [facility] | | | | 2005 - | Encounter | MED CTR CANCER | | | | | | CENTER [facility] [address] | | | | 09/12/ | | [place] | | | | 2005 | | [address] | | | | | | [phone] | | | +--------+ + + + [...]
--- OUTSIDE RECORDS SUMMARY | ~2019-07-27 | XMS | Encounter Summary ---
Demographics + + + | Address | [address] | | | [place] [address] | + + + | Home Phone [...] + | Author | [facility] | | | and [place] | + + + | Organization | [facility] | | | and [place] | + + + | Address | Unknown | + + + | Phone | Unavailable | + + + Support + + + + + | Name | Relationship | Address | Phone | + + + + + | India Tilley | ECON | [address] | | | | | [place], [place] | | | | | [address] | | + + + + + | Yina La | ECON | Unknown | | + + + + + | Yina Peterson | ECON | Unknown | | + + + + + | Leatha Casillas | ECON | Unknown | | + + + + + Care Team Providers + +------+ + | Care Chief Of Staff Name | Role | Phone | + +------+ + PCP | Unavailable | + +------+ + Encounter Details +--------+ + + + + | Date | Type | Department | Care Team | Description | +--------+ + + + + | 05/26/ | Abstract | [facility] | Darlin Moseley W, | | | 2016 | | NEPHROLOGY [address] | [address] | | | | | [address] | [address] [address] [facility] | | | | | [place] | [place] [address] | | | | | [address] | [phone] | | | | | [phone] | | | +--------+ + + + [...] 1.012 | | EXTERNAL | | | [place], | | | LAB | | | [...]
--- OUTSIDE RECORDS SUMMARY | ~2019-07-27 | XMS | Encounter Summary ---
Demographics + + + | Address | [address] | | | [place] [address] | + + + | Home Phone [...] | Author | [facility] | | | and [place] | + + + | Organization | [facility] | | | and [place] | + + + | Address | Unknown | + + + | Phone | Unavailable | + + + Support + + + + + | Name | Relationship | Address | Phone | + + + + + | India Tilley | ECON | [address] | | | | | [place], [place] | | | | | [address] | | + + + + + | Yina La | ECON | Unknown | | + + + + + | Yina Peterson | ECON | Unknown | | + + + + + | Leatha Casillas | ECON | Unknown | | + + + + + Care Team Providers + +------+ + | Care Project Officer Name | Role | Phone | [...] | | | | | [address] | [place] | | | | | [place] | [phone] | | | | | [address] | | | | | | [phone] | Vinnie Last MD | | | | | | [address] | | | | | | [place] | | | | | | [address] | | | | | | | [...] +----+---+ + + | | 1 | [place] | | | | 3 | 43-degrees | | | | 2 | | | | | 1 | | | +----+---+ + + | | 1 | First | | | | 3 | [address] | | | | 2 | | | | | 8 | | | +----+---+ + + | | 1 | [place] off | | | | 5 | [...] 01/04/18 1728 by | | eral | [id number] catheter system; | Linh Gamez RN | [...] documentation.Performing provider: PETROS GARRIDOectronically Signed by: Petros Pluido | | MD Radhika ESig date/time: 01/04/2018 [...]
--- OUTSIDE RECORDS SUMMARY | ~2019-07-27 | XMS | Encounter Summary ---
Demographics + + + | Address | [address] | | | [place] [address] | + + + | Home Phone [...] Author | [facility] | | | and [place] | + + + | Organization | [facility] | | | and [place] | + + + | Address | Unknown | + + + | Phone | Unavailable | + + + Support + + + + + | Name | Relationship | Address | Phone | + + + + + | India Tilley | ECON | [address] | | | | | [place], [place] | | | | | [address] | | + + + + + | Yina La | ECON | Unknown | | + + + + + | Yina Peterson | ECON | Unknown | | + + + + + | Leatha Casillas | ECON | Unknown | | + + + + + Care Team Providers + +------+ + | Care Electrotyper Helper Name | Role | Phone | [...] | | | | | | | ([place] [...] | | | | | | | ([place] [...] | | | | | [address] | [place] | | | | | [place] | [address] | | | | | [address] | | | | | | [phone] | | | +--------+ + + + [...] +----+---+ + + | | 2 | [place] | | | | 2 | 43-degrees [...] 02/05/18 0130 by | | eral | [id number] catheter system; | Keren Hernandez RN | [...]
--- OUTSIDE RECORDS SUMMARY | ~2019-07-27 | XMS | Encounter Summary ---
Demographics + + + | Address | [address] | | | [place] [address] | + + + | Home Phone [...] + | India Tilley | ECON | [address] | | | | | [place], [place] | | | | | [address] | | + + + + + | Yina La | ECON | Unknown | | + + + + + | Yina Peterson | ECON | Unknown | | + + + + + | Leatha Casillas | ECON | Unknown | | + + + + + Care Team Providers + +------+ + | Care Parts Counterperson Name | Role | Phone | + +------+ + PCP | Unavailable | + +------+ + Encounter Details +--------+ + + + + | Date | Type | Department | Care Team | Description | +--------+ + + + + | 10/27/ | Abstract | [facility] | Gopi Muñoz | | | 2017 | | NEPHROLOGY [address] | M, DO [address] | | | | | [address] [facility] | [place], [facility] 100 | | | | | [place], [place] | [place] | | | | | [address] | [address] | | | | | [phone] | | | +--------+ + + + [...]
--- OUTSIDE RECORDS SUMMARY | ~2019-07-27 | XMS | Encounter Summary ---
Demographics + + + | Address | [address] | | | [place] [address] | + + + | Home Phone [...] Author | [facility] | | | and [place] | + + + | Organization | [facility] | | | and [place] | + + + | Address | Unknown | + + + | Phone | Unavailable | + + + Support + + + + + | Name | Relationship | Address | Phone | + + + + + | India Tilley | ECON | [address] | | | | | [place], [place] | | | | | [address] | | + + + + + | Yina La | ECON | Unknown | | + + + + + | Yina Peterson | ECON | Unknown | | + + + + + | Leatha Casillas | ECON | Unknown | | + + + + + Care Team Providers + +------+ + | Care Can Vacuum Tester Name | Role | Phone | [...] | renal | PA-C 2229 | [address] | | | | | disease | NW | [place], [place] | | | | | ([facility]) | [address] | 100 [facility] | | | | | Procedures | [address] | [facility] [place] | | | | | [place] ESRD | [facility] | [address] Phone: | | | | | RELATED [place] | [place] | [phone] | | | | | MONTHLY | [address] | Fax: | | | | | 20&/> YR OLD | Phone: | [phone] | | | | | 4/> VISITS | [phone] | | | | | | | Fax: | | | | | | | [phone] | | + +--------+ + + + + Encounter Details +--------+ + + + + | Date | Type | Department | Care Team | Description | +--------+ + + + + | 10/31/ | Off-Site | [facility] | Gopi Muñoz | End stage renal | | 2019 | Visit | NEPHROLOGY [address] | M, DO [address] | disease (HCC) | | | | [address] | [place], [place] [address] | (Primary Dx) | | | | [place] | [place], [place] | | | | | [address] | [address] | | | | | [phone] | | | +--------+ + + + [...]
--- OUTSIDE RECORDS SUMMARY | ~2019-07-27 | XMS | Encounter Summary ---
Demographics + + + | Address | [address] | | | [place] [address] | + + + | Home Phone [...] Author | [facility] | | | and [place] | + + + | Organization | [facility] | | | and [place] | + + + | Address | Unknown | + + + | Phone | Unavailable | + + + Support + + + + + | Name | Relationship | Address | Phone | + + + + + | India Tilley | ECON | [address] | | | | | [place], [place] | | | | | [address] | | + + + + + | Yina La | ECON | Unknown | | + + + + + | Yina Peterson | ECON | Unknown | | + + + + + | Leatha Casillas | ECON | Unknown | | + + + + + Care Team Providers + +------+ + | Care Provider Contracting Consultant Name | Role | Phone | + +------+ + PCP | Unavailable | + +------+ + Encounter Details +--------+ + + + + | Date | Type | Department | Care Team | Description | +--------+ + + + + | 02/26/ | Hospital | [facility] | Patricia, | | | 2006 - | Encounter | MED CTR CANCER | Venkatesh Forte MD [address] | | | | | [place] [address] | [facility] | | | 03/12/ | | [place], [place] | [place] [address] | | | 2006 | | [address] | [phone] | | | | | [phone] | | | +--------+ + + + [...]
--- OUTSIDE RECORDS SUMMARY | ~2019-07-27 | XMS | Encounter Summary ---
Demographics + + + | Address | [address] | | | [place] [address] | + + + | Home Phone [...] + | Author | [facility] | | | and [place] | + + + | Organization | [facility] | | | and [place] | + + + | Address | Unknown | + + + | Phone | Unavailable | + + + Support + + + + + | Name | Relationship | Address | Phone | + + + + + | India Tilley | ECON | [address] | | | | | [place], [place] | | | | | [address] | | + + + + + | Yina La | ECON | Unknown | | + + + + + | Yina Peterson | ECON | Unknown | | + + + + + | Leatha Casillas | ECON | Unknown | | + + + + + Care Team Providers + +------+ + | Care Hog Scraper Name | Role | Phone | + [...] + + | 09/22/ | Telephone | [facility] [place] | Darlin Moseley W, | Nephrology | | 2018 | | NEPHROLOGY [address] | [address] | Appointment | | | | [address] [facility] | [address] [place] | | | | | [place] | [place] [address] | | | | | [address] | [phone] | | | | | [phone] | | | +--------+ + + + [...]
--- OUTSIDE RECORDS SUMMARY | ~2019-07-27 | XMS | Encounter Summary ---
Demographics + + + | Address | [address] | | | [place] [address] | + + + | Home Phone [...] | Author | [facility] | | | and [place] | + + + | Organization | [facility] | | | and [place] | + + + | Address | Unknown | + + + | Phone | Unavailable | + + + Support + + + + + | Name | Relationship | Address | Phone | + + + + + | India Tilley | ECON | [address] | | | | | [place], [place] | | | | | [address] | | + + + + + | Yina La | ECON | Unknown | | + + + + + | Yina Peterson | ECON | Unknown | | + + + + + | Leatha Casillas | ECON | Unknown | | + + + + + Care Team Providers + +------+ + | Care Rail Crew Member Name | Role | Phone [...] | renal | PA-C 2229 | [address] [place] | | | | | disease | NW | [place], [place] | | | | | ([facility]) | [place] | 100 [facility] | | | | | Procedures | [address] | [facility] [place] | | | | | [place] | [facility] | [address] Phone: | | | | | RELATED [place] | [place] | [phone] | | | | | MONTHLY | [address] | Fax: | | | | | 20&/> YR OLD | Phone: | [phone] | | | | | 4/> VISITS | [phone] | | | | | | | Fax: | | | | | | | [phone] | | + +--------+ + + + + Encounter Details +--------+ + + + + | Date | Type | Department | Care Team | Description | +--------+ + + + + | 10/31/ | Off-Site | [facility] | Gopi Muñoz | End stage renal | | 2019 | Visit | NEPHROLOGY [address] | M, DO [address] | disease (HCC) | | | | [address] | [place], [address] | (Primary Dx) | | | | [place] | [place] | | | | | [address] | [address] | | | | | [phone] | | | +--------+ + + + [...]
--- OUTSIDE RECORDS SUMMARY | ~2019-07-27 | XMS | Encounter Summary ---
Demographics + + + | Address | [address] | | | [place] [address] | + + + | Home Phone [...] + | Author | [facility] | | | and [place] | + + + | Organization | [facility] | | | and [place] | + + + | Address | Unknown | + + + | Phone | Unavailable | + + + Support + + + + + | Name | Relationship | Address | Phone | + + + + + | India Tilley | ECON | [address] | | | | | [place], [place] | | | | | [address] | | + + + + + | Yina La | ECON | Unknown | | + + + + + | Yina Peterson | ECON | Unknown | | + + + + + | Leatha Casillas | ECON | Unknown | | + + + + + Care Team Providers + +------+ + | Care Glass Checker Name | Role | Phone | + [...] | Surgery | kidney | DO [address] | , [address] | | | | | disease, | [place], [place] | [address] | | | | | stage V | [address] | [place], | | | | | ([facility]) | [place], [place] | [place] [address] | | | | | | [address] | Phone: | | | | | | Phone: | [phone] | | | | | | [phone] | Fax: | | | | | | Fax: | [phone] | | | | | | [phone] | | +--------+ + + + + + Encounter Details +--------+ + + + + | Date | Type | Department | Care Team | Description | +--------+ + + + + | 10/06/ | Orders Only | [facility] | Gopi Muñzo | Chronic kidney | | 2018 | | NEPHROLOGY [address] | M, DO [address] | disease, stage V | | | | [address] | [place], [place] [address] | ([facility]) (Primary Dx) | | | | [place] | [place] | | | | | [address] | [address] | | | | | [phone] | | | +--------+ + + + [...] | | | Referral | | | ([facility]) | | + + +--------+ [...]
--- OUTSIDE RECORDS SUMMARY | ~2019-07-27 | XMS | Encounter Summary ---
Demographics + + + | Address | [address] | | | [place] [address] | + + + | Home Phone [...] Author | [facility] | | | and [place] | + + + | Organization | [facility] | | | and [place] | + + + | Address | Unknown | + + + | Phone | Unavailable | + + + Support + + + + + | Name | Relationship | Address | Phone | + + + + + | India Tilley | ECON | [address] | | | | | [place], [place] | | | | | [address] | | + + + + + | Yina La | ECON | Unknown | | + + + + + | Yina Peterson | ECON | Unknown | | + + + + + | Leatha Casillas | ECON | Unknown | | + + + + + Care Team Providers + +------+ + | Care Full Stack Php Developer Name | Role | Phone | [...] + + | 06/01/ | Telephone | [facility] | Gopi Muñoz | Other | | 2019 | | NEPHROLOGY [address] | M, DO [address] | | | | | [address] [facility] | [place], [facility] 100 | | | | | [place], [place] | [place] | | | | | [address] | [address] | | | | | [phone] | | | +--------+ + + + [...]
--- OUTSIDE RECORDS SUMMARY | ~2019-07-27 | XMS | Encounter Summary ---
Demographics + + + | Address | [address] | | | [place] [address] | + + + | Home Phone [...] | Author | [facility] | | | and [place] | + + + | Organization | [facility] | | | and [place] | + + + | Address | Unknown | + + + | Phone | Unavailable | + + + Support + + + + + | Name | Relationship | Address | Phone | + + + + + | India Tilley | ECON | [address] | | | | | [place], [place] | | | | | [address] | | + + + + + | Yina La | ECON | Unknown | | + + + + + | Yina Peterson | ECON | Unknown | | + + + + + | Leatha Casillas | ECON | Unknown | | + + + + + Care Team Providers + +------+ + | Care Tappet Adjuster Name | Role | Phone | [...] | stage renal | MD Phone: | [address] [place] [address] | | | | | disease) | | [address] [address] | | | | | ([facility]) | | [address] [place] | | | | | Procedures | Fax: | [place] | | | | | [place] OFFICE | | [address] Phone: | | | | | OUTPATIENT | | [phone] | | | | | VISIT 25 | | Fax: | | | | | MINUTES | | [phone] | +--------+--------+ + + + + Encounter Details +--------+ + + + + | Date | Type | Department | Care Team | Description | +--------+ + + + + | 05/11/ | Off-Site | [facility] [place] | Gopi Muñoz | ESRD (end stage | | 2019 | Visit | NEPHROLOGY [address] | M, DO [address] [place] | renal disease) on | | | | [address] | [place], [address] | dialysis (HCC) | | | | [place] | [place] | (Primary Dx) | | | | [address] | [address] | | | | | [phone] | | | +--------+ + + + [...] Gopi Muñoz DO - 2019 12:00 PM [id number] sig javi by Gopi Muñoz DO at 2019 8:58 PM PDT documented in this encounter Progress Notes Gopi Muñoz DO - 2019 12:00 PM PDT Subjective: DIALYSIS NOTE Patient ID: Estefani Tilley is a 74 y.o. female. HPI Comments: I inadvertently missed Estefani on dialysis rounds at [facility] on 05/08/2019. 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 There has been a great deal of confusion about her outpatient antibiotics, and hypertension regimen, therefore, I asked her to my office today. Apparently she was discharged from [facility] on 03/31/2019 with acute low back pain, fluid collection and a diagnosis of T11-T12 verteb ral discitis/osteomyelitis. CT-guided aspiration/biopsy did not reveal an organism. Theref ore she was discharged on 03/31 on outpatient IV Vanco, 500 mg, Q. HD treatment MWF, and IV cefepime daily through 05/04/2019. I was called by the [facility] staff that there was concern w [...] she verball y agrees to go to [facility], [place], and turkey picker the meds. (She does appear to a mbulate independently with only a cane for light assistance). PAST MEDICAL HISTORY: 1. ESRD 2 diabetic glomerulosclerosiswith the patient beginning Inpt HD in 018and then was DC to [facility] [place]. Unfortunat brandy, she has had intermittent [...] get her back to Dr. Jessie Jansen, [facility], [place]. Will repeat one more ESR [...] to go to write a tonight to turkey picker her meds and that she should take the first dose in each AM prior to dialysis as well. She was A&O x3 during this discussion. I think that she understands her risk of CV disease, and stroke if she does no t take her meds. 4. Will relay the above to the charge nurse at [facility], LISA Marshall by secure text. 5. My partner, Dr. Magui Moseley will check in on her in 2 weeks at [facility]. 6. Lastly she is concerned about breakthrough pain. I agreed to give her generic Vicodin 5 mg / 325 mg, 1 tab, Q 12 Hours, #40, no refill. 7. Also, Estefani and her family would like to explore whether the [place] or [facility] are could h elp transport her back and forth to the [facility] clinic for her treatments, thrice weekly. [place] states that financially this is becoming a hardship for her. Electronically signed by Gopi Muñoz DO. 05/11/19 11:02 CC: Blaine Jansen [place], [place], [facility], [place], [place] [facility], [place], [place]. document ed in this encounter Plan [...]
--- OUTSIDE RECORDS SUMMARY | ~2019-07-27 | XMS | Encounter Summary ---
Demographics + + + | Address | [address] | | | [place] [address] | + + + | Home Phone [...] + | Author | [facility] | | | and [place] | + + + | Organization | [facility] | | | and [place] | + + + | Address | Unknown | + + + | Phone | Unavailable | + + + Support + + + + + | Name | Relationship | Address | Phone | + + + + + | India Tilley | ECON | [address] | | | | | [place], [place] | | | | | [address] | | + + + + + | Yina La | ECON | Unknown | | + + + + + | Yina Peterson | ECON | Unknown | | + + + + + | Leatha Casillas | ECON | Unknown | | + + + + + Care Team Providers + +------+ + | Care Catering Truck Driver Name | Role | Phone | + +------+ + PCP | Unavailable | + +------+ + Encounter Details +--------+ + + + + | Date | Type | Department | Care Team | Description | +--------+ + + + + | 10/04/ | Abstract | [facility] | Darlin Moseley W, | | | 2017 | | NEPHROLOGY [address] | [address] [place] | | | | | [address] | [address] [facility] | | | | | [place] | [place] [address] | | | | | [address] | [phone] | | | | | [phone] | | | +--------+ + + + [...]
--- OUTSIDE RECORDS SUMMARY | ~2019-07-27 | XMS | Encounter Summary ---
Demographics + + + | Address | [address] | | | [place] [address] | [...] + | Author | [facility] | | | and [place] | + + + | Organization | [facility] | | | and [place] | + + + | Address | Unknown | + + + | Phone | Unavailable | + + + Support + + + + + | Name | Relationship | Address | Phone | + + + + + | India Tilley | ECON | [address] | | | | | [place], [place] | | | | | [address] | | + + + + + | Yina La | ECON | Unknown | | + + + + + | Yina Peterson | ECON | Unknown | | + + + + + | Leatha Casillas | ECON | Unknown | | + + + + + Care Team Providers + +------+ + | Care Keno Writer / Runner Name | Role | Phone | [...] NEPHROLOGY [address] | M, DO [address] | | | | | [address] | [place], [address] | | | | | [place], [place] | [place] | | | | | [address] | [address] | | | | | [phone] | | | +--------+ + + + [...]
--- OUTSIDE RECORDS SUMMARY | ~2019-07-27 | XMS | Encounter Summary ---
Demographics + + + | Address | [address] | | | [place] [address] | + + + | Home Phone [...] | Author | [facility] | | | and [place] | + + + | Organization | [facility] | | | and [place] | + + + | Address | Unknown | + + + | Phone | Unavailable | + + + Support + + + + + | Name | Relationship | Address | Phone | + + + + + | India Tilley | ECON | [address] | | | | | [place], [place] | | | | | [address] | | + + + + + | Yina La | ECON | Unknown | | + + + + + | Yina Peterson | ECON | Unknown | | + + + + + | Leatha Casillas | ECON | Unknown | | + + + + + Care Team Providers + +------+ + | Care Clinical Reviewer Name | Role | Phone | + [...] + + | 01/05/ | Telephone | [facility] | Santos Stephenson | Appointment | | 2017 | | SURGERY [address] | MD Kinga, FACS [address] | | | | | [place], [place] | [address] [facility] | | | | | [address] | [place] [address] | | | | | [phone] | [phone] | | | | | | | [...]
--- OUTSIDE RECORDS SUMMARY | ~2019-07-27 | XMS | Encounter Summary ---
Demographics + + + | Address | [address] | | | [place] [address] | + + + | Home Phone [...] [facility] | | | and [place] | + + + | Organization | [facility] | | | and [place] | + + + | Address | Unknown | + + + | Phone | Unavailable | + + + Support + + + + + | Name | Relationship | Address | Phone | + + + + + | India Tilley | ECON | [address] | | | | | [place], [place] | | | | | [address] | | + + + + + | Yina La | ECON | Unknown | | + + + + + | Yina Peterson | ECON | Unknown | | + + + + + | Leatha Casillas | ECON | Unknown | | + + + + + Care Team Providers + +------+ + | Care Director Radio News Name | Role | Phone | + +------+ + PCP | Unavailable | + +------+ + Encounter Details +--------+ + + + + | Date | Type | Department | Care Team | Description | +--------+ + + + + | 11/08/ | Imaging | [facility] | Provider, | | | 2018 | Exam | MED CTR EXTERNAL | MD [address] | | | | | IMAGING | [address] | | | | | [phone] | [place] [address] | | +--------+ + + + + [...] for comparison only - no result from [place]. | [facility] | + + + + +---------+ + + | Performing | Address | City/State/Zipcode | Phone Number | | Organization | | | | + +---------+ + + | [facility] | | | | + +---------+ + + documented in this encounter Visit Diagnoses Not on filedocumented in this encounter"
--- OUTSIDE RECORDS SUMMARY | ~2019-07-27 | XMS | Encounter Summary ---
Demographics + + + | Address | [address] | | | [place] [address] | + + + | Home Phone [...] Author | [facility] | | | and [place] | + + + | Organization | [facility] | | | and [place] | + + + | Address | Unknown | + + + | Phone | Unavailable | + + + Support + + + + + | Name | Relationship | Address | Phone | + + + + + | India Tilley | ECON | [address] | | | | | [place], [place] | | | | | [address] | | + + + + + | Yina La | ECON | Unknown | | + + + + + | Yina Peterson | ECON | Unknown | | + + + + + | Leatha Casillas | ECON | Unknown | | + + + + + Care Team Providers + +------+ + | Care Solderer Assembly Repair Name | Role | Phone | + +------+ + PCP | Unavailable | + +------+ + Reason for Visit +---------+ + | Reason | Comments | +---------+ + | Split Leather Department Supervisor | | +---------+ + Encounter Details +--------+ + + + + | Date | Type | Department | Care Team | Description | +--------+ + + + + | 12/12/ | Telephone | [facility] | Scott Koroma, | Split Leather Department Supervisor | | 2018 | | ORTHOPEDIC SURGERY | [address] [facility] | | | | | [address] [facility] | [place] | | | | | [place] | [address] | | | | | [address] | | | | | | [phone] | | | +--------+ + + + [...]
--- OUTSIDE RECORDS SUMMARY | ~2019-07-27 | XMS | Encounter Summary ---
Demographics + + + | Address | [address] | | | [place] [address] | + + + | Home Phone [...] + | India Tilley | ECON | [address] | | | | | [place], [place] | | | | | [address] | | + + + + + | Yina La | ECON | Unknown | | + + + + + | Yina Peterson | ECON | Unknown | | + + + + + | Leatha Casillas | ECON | Unknown | | + + + + + Care Team Providers + +------+ + | Care Data Reviewer Name | Role | Phone | [...] | [address] | [address], [place] | | | | | [place] | [address] [place] | | | | | [address] | [address] | | | | | [phone] | | | +--------+ + + + [...] [employer] for consult: need to fax to [facility] closer t o appt. RU documented [...]
--- OUTSIDE RECORDS SUMMARY | ~2019-07-27 | XMS | Encounter Summary ---
Demographics + + + | Address | [address] | | | [place] [...] + | Author | [facility] | | | and [place] | + + + | Organization | [facility] | | | and [place] | + + + | Address | Unknown | + + + | Phone | Unavailable | + + + Support + + + + + | Name | Relationship | Address | Phone | + + + + + | India iTlley | ECON | [address] | | | | | [place], [place] | | | | | [address] | | + + + + + | Yina La | ECON | Unknown | | + + + + + | Yina Peterson | ECON | Unknown | | + + + + + | Leatha Casillas | ECON | Unknown | | + + + + + Care Team Providers + +------+ + | Care Aitchbone Breaker Name | Role | Phone | + [...] | | | | | | ([facility]) | | | +--------+--------+ + + + + Encounter Details +--------+ + + + + | Date | Type | Department | Care Team | Description | +--------+ + + + + | 12/04/ | Anesthesia | [facility] | Petros Garrido | | | 2019 | Event | MED CTR OR INTRA OP | MD Zule[address] | | | | | [address] | [address] | | | | | [place], [place] | [place] [address] | | | | | [address] | [phone] | | | | | [phone] | | | +--------+ + + + [...] +----+---+ + + | | 1 | [place] | | | | 6 | 43-degrees | | | | 3 | | | | | 1 | | | +----+---+ + + | | 1 | First | | | | 6 | Inc/Proc St | | | | 3 | | | | | 4 | | | +----+---+ + + | | 1 | [place] off | | | | 6 | [...] 12/09/18 182 by | | eral | [id number] catheter system; | Priti Burleson RN | iNdia Castano, | | IV | 22 gauge, [...] | | | | | Breath, Starting [place] 12/04/18 at | | PM PDT | | | | | 1701, Anesthesia Intra-op | | | | | | + +--------+ +---------+------+------+ +---+---+ | | | +---+---+ + +-------+ +-----+---+---+ | ceFAZolin (ANCEF, KEFZOL) | Given | 12/05/19 | 1 g | | | | injection Intravenous, PRN, | | 19 4:20 | | | | | Starting [place] 12/04/18 at 1620, | | PM PDT [...] 4:04 | | | | | Starting [place] 12/04/18 at 1604, | | PM PDT [...] | | | | | PRN, Starting [place] 12/04/18 at | | PM PDT | [...] 4:14 | | | | | Starting [place] 12/04/18 at 1614, | | PM PDT | | | | | Anesthesia Intra-op | | | | | | + +-------+ +--------+---+---+ +---+---+ | | | +---+---+ documented in this encounter"
--- OUTSIDE RECORDS SUMMARY | ~2019-07-27 | XMS | Encounter Summary ---
Demographics + + + | Address | [address] | | | [place] [address] | + + + | Home Phone [...] + | Author | [facility] | | | and [place]it[place] | + + + | Organization | [facility] | | | and [place] | + + + | Address | Unknown | + + + | Phone | Unavailable | + + + Support + + + + + | Name | Relationship | Address | Phone | + + + + + | India Tilley | ECON | [phone] | | | | | [place], [place] | | | | | [address] | | + + + + + | Yina La | ECON | Unknown | | + + + + + | Yina Peterson | ECON | Unknown | | + + + + + | Leatha Casillas | ECON | Unknown | | + + + + + Care Team Providers + +------+ + | Care Senior Revenue Accountant Name | Role | Phone | + +------+ + PCP | Unavailable | + +------+ + Encounter Details +--------+ + + + + | Date | Type | Department | Care Team | Description | +--------+ + + + + | 09/25/ | Hospital | [facility] | [facility], | | | 2007 - | Encounter | MED CTR CANCER | Venkatesh Forte MD [address] | | | | | [place] [address] | [facility] | | | 10/13/ | | [place] | [place] [address] | | | 2007 | | [address] | [phone] | | | | | [phone] | | | +--------+ + + + [...]
--- OUTSIDE RECORDS SUMMARY | ~2019-07-27 | XMS | Encounter Summary ---
Demographics + + + | Address | [address] | | | [place] [address] | + + + | Home Phone [...] | Author | [facility] | | | and [place] | + + + | Organization | [facility] | | | and [place] | + + + | Address | Unknown | + + + | Phone | Unavailable | + + + Support + + + + + | Name | Relationship | Address | Phone | + + + + + | India Tilley | ECON | [phone] | | | | | [place], [place] | | | | | [address] | | + + + + + | Yina La | ECON | Unknown | | + + + + + | Yina Peterson | ECON | Unknown | | + + + + + | Leatha Casillas | ECON | Unknown | | + + + + + Care Team Providers + +------+ + | Care Ripening Room Hand Name | Role | Phone | + +------+ + PCP | Unavailable | + +------+ + Encounter Details +--------+ + + + + | Date | Type | Department | Care Team | Description | +--------+ + + + + | 02/28/ | Hospital | [facility] | | | | 2006 | Encounter | MED CTR XRAY [address] | | | | | | [address] | | | | | | [place] [address] | | | | | | [phone] | | | +--------+ + + + [...]
--- OUTSIDE RECORDS SUMMARY | ~2019-07-27 | XMS | Encounter Summary ---
Demographics + + + | Address | [address] | | | [place] [address] | + + + | Home Phone [...] | Author | [facility] | | | and [place] | + + + | Organization | [facility] | | | and [place] | + + + | Address | Unknown | + + + | Phone | Unavailable | + + + Support + + + + + | Name | Relationship | Address | Phone | + + + + + | India Tilley | ECON | [phone] | | | | | [place], [place] | | | | | [address] | | + + + + + | Yina La | ECON | Unknown | | + + + + + | Yina Peterson | ECON | Unknown | | + + + + + | Leatha Casillas | ECON | Unknown | | + + + + + Care Team Providers + +------+ + | Care Freezer Unloader Name | Role | Phone | + +------+ + PCP | Unavailable | + +------+ + Encounter Details +--------+ + + + + | Date | Type | Department | Care Team | Description | +--------+ + + + + | 06/23/ | Hospital | [facility] | [place], | | | 2006 - | Encounter | MED CTR CANCER | Venkatesh Forte MD [address] | | | | | [place] [address] | [facility] | | | 07/13/ | | [place] | [place] [address] | | | 2006 | | [address] | [phone] | | | | | [phone] | | | +--------+ + + + [...]
--- OUTSIDE RECORDS SUMMARY | ~2019-07-27 | XMS | Encounter Summary ---
Demographics + + + | Address | [address] | | | [place] [address] | + + + | Home Phone [...] Author | [facility] | | | and [place] | + + + | Organization | [facility] | | | and [place] | + + + | Address | Unknown | + + + | Phone | Unavailable | + + + Support + + + + + | Name | Relationship | Address | Phone | + + + + + | India Tilley | ECON | [phone] | | | | | [place], [place] | | | | | [address] | | + + + + + | Yina La | ECON | Unknown | | + + + + + | Yina Peterson | ECON | Unknown | | + + + + + | Leatha Casillas | ECON | Unknown | | + + + + + Care Team Providers + +------+ + | Care Supervisor Welding Equipment Repairer Name | Role | Phone [...] + + | 03/23/ | Emergency | [facility] | Carlos Baker | Osteomyelitis, | | 2019 - | | MED CTR EMERGENCY | MD Venkatesh [address] | unspecified site, | | | | CENTER [address] | [address] [place] | unspecified type | | 03/24/ | | [place], [place] | [place] [address] | ([facility]) (Primary Dx); | | 2018 | | [address] | [phone] | Acute midline | | | | [phone] | | thoracic back pain; | | [...] | | | ([facility]), Right hip | | | [...] R?MRN: | | | | | | [id number] | | | [id number] | | | riteri | | | [...] | | | St. | | | [place] | | | y | | | [...] | | | [facility] | | | [facility] | | | 3 0 | | | [facility] | | | [facility] | | | [facility] | | | y | | | [...] | | | St. | | | [facility] | | | y H. | | [...] | | | St. | | | [facility] | | | y H. | | [...] the | | | | | | airborne and air delivery specialist | | | al | | | [...] | | | St. | | | [facility] | | | y H. | | [...] | | | [facility] | | | [facility] | | | [facility] | | | ID | | | [...] | | | [facility] | | | [facility] | | | [facility] | | | ID | | | [...] | | | [facility] | | | [facility] | | | [facility] | | | ID | | | [...] | | | [facility] | | | [facility] | | | [facility] | | | ID | | | [...] | | | [facility] | | | [facility] | | | [facility] | | | ID | | | [...] | | | [facility] | | | [facility] | | | | | | [facility] [...] | | | [id number] | | | [id number] | | | [address] | | | [...] ST. | [address] | [place], [place] | [phone] | | [facility] | | [address] | | | - LABORATORY | | [...] + | [facility] | [address] | [place] | [phone] | | [facility] | | [address] | | | - LABORATORY | | [...] + | [facility] | [address] | [place] | [phone] | | [facility] | | [address] | | | - LABORATORY | | [...] [address] | [place] | [phone] | | [facility] | | [address] | | | - LABORATORY | | [...] 3.78 (H) | 0.55 - 1.02 | [facility] | | | | | mg/dL | [facility] | | | | | | MEDICAL | | | | | | CENTER - | | | | | | LABORATORY | | + + + + + + | eGFR if not | 12 (L)Comment: | >=60 | [facility] | | | | GLOMERULAR FILTRATION | mL/min/1.73m2 | [facility] | | | [place] | RATE,ESTIMATED | | MEDICAL | | | | mL/min/1.65z7Ehrm than | | CENTER - | | [...] [address] | [place] | [phone] | | [facility] | | [address] | | | - LABORATORY | | [...] [address] | [place] | [phone] | | [facility] | | [address] | | | - LABORATORY | | [...] [address] | [place] | [phone] | | [facility] | | [address] | | | - LABORATORY | | [...] lymphadenopathy. | | | LUNGS:There is a ajfct-zl-lgjraajy layering left pleural effusion. | | | [...] or hilar | | lymphadenopathy.LUNGS:There is a igfdf-tk-nqtsgbvw layering left pleural effusion. | | There [...] very highly suspicious for osteomyelitis/discitis at the K81-J05ufofe.Small to | | moderate layering left pleural [...] | | | | PRN, Other, Starting [facility] 03/23/19 | | PM PDT | | | | | at 2031, For 1 dose, MRI | | | | | | + +-------+ +-------+---+---+ +---+---+ | | | +---+---+ + +-------+ +--------+---+---+ | LORazepam (ATIVAN) injection | Given | 03/23/20 | 0.5 mg | | | | 0.5 mg 0.5 mg, Intravenous, | | 19 8:22 | | | | | ONCE, [facility] 03/23/19 at 2014, For 1 | | [...] | | | | 90 Minutes, ONCE, [facility] 03/23/19 at | | | | | | | 2240, For 1 dose, Keep in | | | | | | | refrigerator., Indications: | | | | | | | Osteomyelitis | | | | | | + +---------+ + +-------+---+ + +---+ | | | + +---+ | vancomycin per pharmacy | | | PHARMACY CONSULT, Starting [facility] | | | 03/23/19 at 2229, Indications: | | | Osteomyelitis | | + +---+ | | | + +---+ documented in this encounter
--- OUTSIDE RECORDS SUMMARY | ~2019-07-27 | XMS | Encounter Summary ---
Demographics + + + | Address | [address] | | | [place] [address] | + + + | Home Phone [...] + | Author | [facility] [place] [facility] | | | and [place] | + + + | Organization | [facility] [place] [facility] | | | and [place] | + + + | Address | Unknown | + + + | Phone | Unavailable | + + + Support + + + + + | Name | Relationship | Address | Phone | + + + + + | India Tilley | ECON | [phone] | | | | | [place], [place] | | | | | [address] | | + + + + + | Yina La | ECON | Unknown | | + + + + + | Yina Peterson | ECON | Unknown | | + + + + + | Leatha Casillas | ECON | Unknown | | + + + + + Care Team Providers + +------+ + | Care Card Processing Clerk Name | Role | Phone | + +------+ + PCP | Unavailable | + +------+ + Encounter Details +--------+ + + + + | Date | Type | Department | Care Team | Description | +--------+ + + + + | 11/08/ | Imaging | [facility] | Provider, | | | 2018 | Exam | MED CTR EXTERNAL | MD [address] | | | | | IMAGING | [address] | | | | | [phone] | [place] [address] | | +--------+ + + + + [...] for comparison only - no result from [facility]. | [facility] | + + + + +---------+ + + | Performing | Address | City/State/Zipcode | Phone Number | | Organization | | | | + +---------+ + + | [facility] | | | | + +---------+ + + documented in this encounter Visit Diagnoses Not on filedocumented in this encounter"
--- OUTSIDE RECORDS SUMMARY | ~2019-07-27 | XMS | Encounter Summary ---
Demographics + + + | Address | [address] | | | [place] [address] | + + + | Home Phone [...] Author | [facility] | | | and [place] | + + + | Organization | [facility] | | | and [place] | + + + | Address | Unknown | + + + | Phone | Unavailable | + + + Support + + + + + | Name | Relationship | Address | Phone | + + + + + | [place] Tilley | ECON | [phone] | | | | | [place], [place] | | | | | [address] | | + + + + + | Yina La | ECON | Unknown | | + + + + + | Yina Peterson | ECON | Unknown | | + + + + + | Leatha Casillas | ECON | Unknown | | + + + + + Care Team Providers + +------+ + | Care Airplane Rigger Name | Role | Phone | + [...] | | | | renal | PA-C [address] | [address] [place] [address] | | | | | disease | | [address] | | | | | ([facility]) | CONFEDERATED | [address] | | | | | Procedures | WAY | [place] | | | | | ID OFFICE | [place], | [address] Phone: | | | | | OUTPATIENT | [place] [address] | [phone] | | | | | VISIT 25 | Phone: | Fax: | | | | | [place] | [phone] | [phone] | | | | | ESRD RELATED | Fax: | | | | | | SVC MONTHLY | [phone] | | | | | | 20&/> YR | | | | | | | OLD 4/> | | | | | | | VISITS | | | +--------+--------+ + + + + Encounter Details +--------+ + + + + | Date | Type | Department | Care Team | Description | +--------+ + + + + | 07/11/ | Off-Site | [facility] | Gopi Muñoz | End stage renal | | 2018 | Visit | NEPHROLOGY [address] | M, DO [address] | disease (HCC) | | | | [address] | [address] | (Primary Dx) | | | | [place], [place] | [place], [place] | | | | | [address] | [address] | | | | | [phone] | | | +--------+ + + + [...]
--- OUTSIDE RECORDS SUMMARY | ~2019-07-27 | XMS | Encounter Summary ---
Demographics + + + | Address | [address] | | | [place] [address] | + + + | Home Phone [...] Author | [facility] | | | and [place] | + + + | Organization | [facility] | | | and [place] | + + + | Address | Unknown | + + + | Phone | Unavailable | + + + Support + + + + + | Name | Relationship | Address | Phone | + + + + + | India Tilley | ECON | [phone] | | | | | [place], [place] | | | | | [address] | | + + + + + | Yina La | ECON | Unknown | | + + + + + | Yina Peterson | ECON | Unknown | | + + + + + | Leatha Casillas | ECON | Unknown | | + + + + + Care Team Providers + +------+ + | Care Concrete Pump Operator Helper Name | Role | Phone | + +------+ + PCP | Unavailable | + +------+ + Encounter Details +--------+ + + + + | Date | Type | Department | Care Team | Description | +--------+ + + + + | 04/10/ | Hospital | [facility] | Patricia, | | | 2006 - | Encounter | MED CTR CANCER | Venkatesh Forte MD [address] | | | | | [place] [address] | [facility] | | | 04/12/ | | [place] | [place] [address] | | | 2006 | | [address] | [phone] | | | | | [phone] | | | +--------+ + + + [...]
--- OUTSIDE RECORDS SUMMARY | ~2019-07-27 | XMS | Encounter Summary ---
Demographics + + + | Address | [address] | | | [place] [address] | + + + | Home Phone [...] | [facility] | | | and [place] | + + + | Organization | [facility] | | | and [place] | + + + | Address | Unknown | + + + | Phone | Unavailable | + + + Support + + + + + | Name | Relationship | Address | Phone | + + + + + | India Tilley | ECON | [phone] | | | | | [place], [place] | | | | | [address] | | + + + + + | Yina La | ECON | Unknown | | + + + + + | Yina Peterson | ECON | Unknown | | + + + + + | Leatha Casillas | ECON | Unknown | | + + + + + Care Team Providers + +------+ + | Care Investigation Division Captain Name | Role | Phone | + +------+ + PCP | Unavailable | + +------+ + Encounter Details +--------+ + + + + | Date | Type | Department | Care Team | Description | +--------+ + + + + | 11/24/ | Hospital | [facility] | | | | 2006 - | Encounter | MED CTR CANCER | | | | | | CENTER [facility] [address] | | | | 12/11/ | | [place] | | | | 2006 | | [address] | | | | | | [phone] | | | +--------+ + + + [...]
--- OUTSIDE RECORDS SUMMARY | ~2019-07-27 | XMS | Encounter Summary ---
Demographics + + + | Address | [address] | | | [place] [address] | + + + | Home Phone [...] Author | [facility] | | | and [place] | + + + | Organization | [facility] | | | and [place] | + + + | Address | Unknown | + + + | Phone | Unavailable | + + + Support + + + + + | Name | Relationship | Address | Phone | + + + + + | India Tilley | ECON | [address] | | | | | [place], [place] | | | | | [address] | | + + + + + | iYna La | ECON | Unknown | | + + + + + | Yina Peterson | ECON | Unknown | | + + + + + | Leatha Casillas | ECON | Unknown | | + + + + + Care Team Providers + +------+ + | Care Printed Circuit Boards Contact Printer Name | Role | Phone | [...] + + | 06/03/ | Telephone | [facility] | Darlin Moseley [address], | Dialysis | | 2018 | | NEPHROLOGY [address] | [address] | (Asymptomatic) | | | | [address] | [address] [place] | | | | | [place] | [place] [address] | | | | | [address] | [phone] | | | | | [phone] | | | +--------+ + + + [...]
--- OUTSIDE RECORDS SUMMARY | ~2019-07-27 | XMS | Encounter Summary ---
Demographics + + + | Address | [address] | | | [place] [address] | + + + | Home Phone [...] + | Author | [facility] | | | and Kamaljitana | + + + | Organization | [facility] | | | and [place] | + + + | Address | Unknown | + + + | Phone | Unavailable | + + + Support + + + + + | Name | Relationship | Address | Phone | + + + + + | India Tilley | ECON | [address] | | | | [place], [place] | | | | | [address] | | + + + + + | Yina La | ECON | Unknown | | + + + + + | Yina Peterson | ECON | Unknown | | + + + + + | Leatha Casillas | ECON | Unknown | | + + + + + Care Team Providers + +------+ + | Care Paralegals Name | Role | Phone | + [...] | | | | | site, | [place], [place] | TABITHA, [place]KTORI[place] | | | | | unspecified | [address] | [address] | | | | | type ([facility]) | Phone: | Phone: | | | | | | [phone] | [phone] | | | | | | Fax: | Fax: | | | | | | [phone] | [phone] | + + + + + + [...] + + | 03/24/ | Hospital | [facility] | Erlinda Simon, | Osteomyelitis, | | 2019 - | Encounter | [facility] | MD [address] | unspecified site, | | | | NEPHROLOGY [address], [address] | unspecified type | | 03/31/ | | [address] [place], [place] | [place] [address] | ([facility]) (Primary Dx); | | 2019 | | [address] | [phone] | Discitis of thoracic | | | | [phone] | | region; Other | | | | | Katey Hill MD | secondary | | | | | [address] | osteoarthritis of | | | | | [address]TH FLO[address] [place], | multiple sites; ESRD | | | | | [place] [address] | (end stage renal | | | | | [phone] | disease) on dialysis | | | | | | ([facility]); Essential | | | | | Michelle Lopez, | hypertension; ESRD | | | | | DO [address] | (end stage renal | | | | | [address] [place], | disease) ([facility]); Type | | | | | [place] [address] | 2 diabetes mellitus | | | | | [phone] | with stage 4 | | | | | | chronic kidney | | | | | | disease, with | | | | | | long-term current | | | | | | use of insulin ([facility]) | +--------+ + + + + [...] completion of IV abx Follow Up Appointments: [facility] [address] [facility] [id number] [facility] [address] [place] [id number] [facility] [address] [facility] [address] Discharge Disposition: Home with Home Health Consultants This Admission: ID, Nephrology Hospital Course: 73-year-old female with history of ESRD on hemodialysis, hypertension, type 2 diabetes, hyp othyroidism, chronic anemia, hyperlipidemia with a history of stroke transferred from [facility] for evaluation of T11-T12 lesion noted on [...] to go to SNF ([facility] in [place], [place] - of which has accepted her [...] dialysis days after dialysis Osteomyelitis/Discitis of T11, [id number] -MRI spine 03/23/19: "mild paravertebral soft tissue [...] dialysis patient - has OP clinic in [place] already Macrocytic anemia likely secondary to-likely anemia [...] Value Units Date/Time Culture, Aerobic + Anaerobic [[id number]] Collected: 03/24/191513 Order Status: Completed Lab Status: Final result Updated: 03/29/19717 Specimen: Body Fluid from Vertebrae, Thoracic FINAL REPORT -- No Growth No anaerobes isolated Gram Stain Few Neutrophils No squamous epithelial cells seen No organisms seen Comment: Performed by [facility] [address] [place] [address] Gram Stain [[id number]] Collected: 03/24/191513 Order Status: Canceled Lab Status: No result Updated: 03/24/19 1515 Specimen: Body Fluid from Vertebrae, Thoracic Culture, AFB Smear [[id number]] Collected: 03/24/19 1514 Order Status: Completed Lab Status: Preliminary result Updated: 03/25/19 1054 Specimen: Body Fluid from Vertebrae, Thoracic AFB Smear Result No Acid Fast Bacilli Seen Comment: Performed by [facility] [address] [place] [address] Culture, Fungus, Smear [[id number]] Collected: 03/24/19 1514 Order Status: Completed Lab Status: Preliminary result Updated: 03/25/19 1039 Specimen: Body Fluid from Vertebrae, Thoracic CALCOFLUOR No fungal elements seen Comment: Performed by [facility] [address] [place] [address] Culture, Blood [[id number]] Collected: 03/23/19 2333 Order Status: Completed Lab Status: Final result Updated: 03/28/19 2352 Specimen: Blood Culture No growth after 5 days incubation. Culture, Blood [[id number]] Collected: 03/23/19 2255 Order Status: Completed Lab [...] this chart may have been created with Nanomech voice recognition software. Occasi onal wrong-word or [...] | | | | | ([facility]), Right hip | | | [...] 03/31/2019 5:42 PM PDTPatient left with family, [facility] supplies and i nstructions received before discharge and RX's filled at outpt pharmacy. VSS, ambulating wit h SBA, A&O x4, accepting of discharge. Dialysis completed this AM. Pain controlled with q4 o xy, LD 1400. Home health will f/u tomorrow. AVS reviewed and sent with patient, verbalized u nderstanding. Merry Hess, STATISTICAL FINANCIAL ANALYST - 03/31/2019 11:05 AM PDTSOCIAL WORK PLAN: Home with [facility] NEXT STEPS: 1. Pt to follow up with [facility] 2. [facility] to follow up with pt at [place] INTERVENTION: SW spoke with [facility], pt has a $2.50 out of pocket cost weekly, pt is agreeable to pay for this. Therefore pt will dc today with [facility]. ROBIN provided [facility] with hard script for IV abx. ROBIN faxed over HH order to [facility], ROBIN faxed over IV vanco script to [facility]. [facility] notified of pt's dc home. notified. Candie to meet with pt later this afternoon for teach. SW provided pt with 3 gas cards to assist with transportation. No further dc needs identified. SW received call from [facility] clinic that they cannot provide IV Vanco as Vanco h as not been consigned by [employer] that has privileges in [place]. IV Vanco will now be done b y Candie, [employer] faxed over hard script to Candie. They will have both IV Abx ready and will teach pt shortly. No further dc needs identified. CONTACTS: Yina La: sister India Tilley: sister [place] Transportation: [place] Medicaid Transportation fax: [phone] [facility]: [phone] fax: [phone] [facility] [phone] [facility]: [phone] [facility]: [phone] [facility] FAX: [phone] aMichelle bell DO - 03/31/2019 10:12 AM [...] [facility] of T11-T12 lesion noted on [...] had planned to go to SNF ([facility] [place] [place] - of which has accepted her and [...] dialysis patient - has OP clinic in [place] already Macrocytic anemia likely secondary to-likely anemia [...] hoping to arrange home IV antibiotics through [facility]. Awaiting to see if insurance will cover [...] - 99 mg/dL Final Comment: Performed by [facility] [address] [place] [address] 03/30/2019 21:14 200 (H) 65 - 99 mg/dL Final Comment: Performed by [facility] [address] [place] [address] 03/30/2019 17:46 111 (H) 65 - 99 mg/dL Final Comment: Performed by [facility] [address] [place] [address] 12/09/2018 18:05 113 (H) 70 - 109 [...] this chart may have been created with Nanomech voice recognition software. Occasi onal wrong-word or sound-alike substitutions may have occurred due to the inherent mckeon itations of voice recognition software. Please read the chart carefully and recognize, using context, where these substitutions have occurred Jesus Wade MD - 03/31/2019 8:26 AM PDT . Infectious Diseases Progress Note Pt. Name/Age/: Estefani Tony Tilley 73 y.o. 1945 Med. Record Number: [id number] Date of admission: 03/24/2019 Patient admitted with [...] Electronically signed by: Jesus Whitney, 03/31/2019 8:26 [facility] Robb Phillips PharmD - 03/31/2019 [...] - 03/30/2019 9:45 PM PDT [facility] INPATIENT ROUNDING NOTE Date of Service: 03/30/2019 Rounding Physician: Randy Corrigan MD Patient Name: Estefani Tilley : 1945 Medical Record: [id number] Hospital Summary: Estefani Tilley is a 73 y.o. female with a PMHx of ESRD, HTN, Dm type 2, hypothyroidism, HLd, CVA who is under the care of Dr Muñoz at [facility]3] who dialyzes MWF admitted with possible osteo [...] Trace Corrigan MD, 03/30/2019, 21:45 etNan wilkes, STATISTICAL FINANCIAL ANALYST - 03/30/2019 2:34 PM PDT SOCIAL WORK D/C PLAN:DC home with [facility] providing IV-ABX and [facility] providing picc care and lab draws vs [facility] NEXT STEPS: -SW will need to follow up with CANDIE regarding providing IV-ABX to pt. -SW will need to follow up with [facility] regarding providing picc care and lab draws. -SW will need to follow up with [facility] regarding having pt receive vanco do se while at dialysis center if pt is to go home with IV-ABX -SW will need to follow up with [facility] if pt is unable to go home with IV-ABX rega ridng pt's DC -SW will need to fax SNF orders, scripts and PASRR to [facility] if pt is unable to go home -SW will need to provide gas cards to pt's family for transportation home. INTERVENTION:SW spoke with pt regarding acceptance to [facility]. Pt is now wanting to go home with IV-ABX. SW spoke with [facility]. They go out to [place], [place] and have openings for nursing care. Referral faxed to [facility]. Pt is amenable to using [facility] for IV-ABX. SW spoke with CANDIE martinez who will run pt's be nefits to see if she can DC home with IV-ABX. Pt states that [facility] can provide teach to her son to help administer IV-ABX. SW left message for [facility] to see if they can provide [facility], Wednesday and Wednesday if pt is able to go home. Pt states that she does dialysis on Wednesday, Wednesday and Wednesday from 12:00-4:00. SW received phone call from [facility]. They have accepted pt for admission if [...] if pt is going to go to [facility]. ASSESSMENT/CHART REVIEW:73 yr old femalewith a history of ESRD on hemodialysis, hypertens ion, type 2 diabetes, hypothyroidism,chronic anemia,hyperlipidemia, hx of stroke [facility] noted on MRI concerning fo r osteomyelitis. SW met with pt's sister, Yina, and her cousin, Keri, who were waiting in pt's room while s he was in dialysis. SW will need to follow up with pt re: d/c planning. Pt's sister and cousin related that pt mostly lives at Yina's house outside [place], [place], but does not like to be tied down because she enjoys attending [place] festivals and many events. She does at [facility] weekly. Pt has a vehicle and is very independent. D/C TRANSPORT:Pt can be transported home or to [facility] via family in a private car. They will need gas cards to help pay for transportation. BARRIERS TO D/C:none CONTACTS: Yina La: sister India Tilley: sister [place] Transportation: [place] Transportation fax: [phone] [facility]: [phone] fax: [phone] [facility] [phone] [facility]: [phone] [facility]: [phone] [facility] FAX: [phone] Nan Cheney MSW - 03/30/2019 12:57 PM PDTSOCIAL WORK D/C PLAN:[facility]: [facility] NEXT STEPS:Await bed availability INTERVENTION: ROBIN called and left message for Mell at [facility] regarding if they are willing to accept pt and to discuss transportation to and from dialysis. SW also called and left message for [place] Medicaid transportation regarding if they can transp ort pt to and from dialysis upon DC. Pt states that she goes to [facility] dialys is in [place], [place] on Wed, Wed, and Fridays from 12:00-4:00 pm. SW left message with [facility] regarding if there was any way that they may also be able to help with transportation to and from dialysis while pt is in rehab and to ensure that pt still has her chair time scheduled. [facility] is only open M on, Wednesday and Wednesday. ASSESSMENT/CHART REVIEW:73 yr old femalewith a history of ESRD on hemodialysis, hypertens ion, type 2 diabetes, hypothyroidism,chronic anemia,hyperlipidemia, hx of stroke transfe rred from [facility] evaluation of T11-T12 lesion noted on MRI concerning fo r osteomyelitis. SW met with pt's sister, Yina, and her cousin, Keri, who were waiting in pt's room while s he was in dialysis. SW will need to follow up with pt re: d/c planning. Pt's sister and cousin related that pt mostly lives at Yina's house outside [place], [place], but does not like to be tied down because she enjoys attending [place] festivals and many events. She does at [facility] dialysis weekly. Pt has a vehicle and is very independent. D/C TRANSPORT:tbd BARRIERS TO D/C:none CONTACTS: Yina La: sister India Tilley: sister [place] Transportation: [place] Medicaid Transportation fax: [phone] [facility]: [phone] fax: [phone] [facility] [phone] [facility]: [phone] signed by JENNIFER Xavier at 03/30 1:09 [facility] of T11-T12 lesion noted on [...] dialysis patient - has OP clinic in [place] already ---> will need SW to help [...] SNF - awaiting to hear back from [facility], in [place], [place] regarding possible acceptance there. Medically ready [...] Single Lumen 03/24/19 2143 Left Lateral Forearm fkdn-bgg-pexyda daniel ter system 20 gauge;1 1/4 in [...] - 99 mg/dL Final Comment: Performed by [facility] [address] [place] [address] 03/29/2019 21:09 157 (H) 65 - 99 mg/dL Final Comment: Performed by [facility] [address] [place] [address] 03/29/2019 18:50 91 65 - 99 mg/dL Final Comment: Performed by [facility] [address] [place] [address] 12/09/2018 18:05 113 (H) 70 - 109 [...] this chart may have been created with Nanomech voice recognition software. Occasi onal wrong-word or sound-alike substitutions may have occurred due to the inherent mckeon itations of voice recognition software. Please read the chart carefully and recognize, using context, where these substitutions have occurred esus Whitney MD - 03/30/2019 7:15 AM PDT . Infectious Diseases Progress Note Pt. Name/Age/: Estefani Jimenez Jarek 73 y.o. 1945 Med. Record Number: [id number] Date of admission: 03/24/2019 Patient admitted with [...] Electronically signed by: Jesus Whitney, 03/30/2019 7:15 [facility] Mary Wade RN - 03/30/2019 [...] intention has depression wishful of Monitoring Requirements [facility] Suicide Policy [facility] Suicide Risk/Telesitter Screening Utilizing this rating scale, [...] 03/29/2019 4:18 PM PDTSOCIAL WORK D/C PLAN:SNF: [facility] NEXT STEPS:Await bed availability INTERVENTION: SW called and spoke with admissions person at [facility], they are still discussing pt's case. [...] hx of stroke [facility] noted on MRI concerning fo r osteomyelitis. SW met with pt's sister, Yina, and her cousin, Keri, who were waiting in pt's room while s he was in dialysis. SW will need to follow up with pt re: d/c planning. Pt's sister and cousin related that pt mostly lives at Yina's house outside [place], [place], but does not like to be tied down because she enjoys attending [place] festivals and many events. She does at [facility] weekly. Pt has a vehicle and is very independent. D/C TRANSPORT:tbd BARRIERS TO D/C:none CONTACTS: Yina La: sister India Tilley: sister [place] Medicaid Transportation: [facility]: [phone] fax: [phone] [facility] [phone] signed by JENNIFER Contreras at 03/29/2019 4:20 PM PDTHsu, Randy Nunez MD - 03/29/2019 12:32 PM PDT [facility] INPATIENT ROUNDING NOTE Date of Service: 03/29/2019 Rounding Physician: Randy Corrigan MD Patient Name: Estefani Tilley : 1945 Medical Record: [id number] Hospital Summary: Estefani Tilley is a 73 y.o. female with a PMHx of ESRD, HTN, Dm type 2, hypothyroidism, HLd, CVA who is under the care of Dr Muñoz at [facility]3] who dialyzes MWF admitted with possible osteo [...] [facility] of T11-T12 lesion noted on [...] need three times weekly dialysis while at [facility] as well. SW to help determine transportation [...] dialysis patient - has OP clinic in [place] already ---> will need SW to help [...] SNF - awaiting to hear back from [facility], in [place], [place] regarding possible acceptance there. Could possibly [...] Single Lumen 03/24/19 2143 Left Lateral Forearm umqf-xli-ehjfhc daniel ter system 20 gauge;1 /4 in [...] - 99 mg/dL Final Comment: Performed by [facility] [address] [place] [address] 03/28/2019 21:06 144 (H) 65 - 99 mg/dL Final Comment: Performed by [facility] [address] [place] [address] 03/28/2019 11:22 119 (H) 65 - 99 mg/dL Final Comment: Performed by [facility] [address] [place] [address] 12/09/2018 18:05 113 (H) 70 - 109 [...] this chart may have been created with Nanomech voice recognition software. Occasi onal wrong-word or [...] Jarek 73 y.o. 1945 Med. Record Number: [id number] Date of admission: 03/24/2019 Patient admitted with [...] Electronically signed by: Jesus Whitney, 03/29/2019 7:35 [facility] zech, Carolina Restrepo RN - 03/28/2019 7:08 PM [id number] - Report called to Sanjuanita GONZALEZ. Pt's belongings . I pad and I phone w/ chargers as well as pt's purse, and shoes, and shirt and pants all sent with her to [address] [place] [address]. Pt had been sitting up eating dinner. [...] for time spent with her. Noti fied [address] [place] [address] RN of pt's recent loss. Transferred at [facility]-T12 lesion noted on [...] Single Lumen 03/24/19 2143 Left Lateral Forearm plva-czy-tlxkks daniel ter system 20 gauge;1 / in [...] - 99 mg/dL Final Comment: Performed by [place] [address] [facility] [place] [address] 03/28/2019 07:09 75 65 - 99 mg/dL Final Comment: Performed by [place] [address] [facility] [place] [address] 03/27/2019 20:38 109 (H) 65 - 99 mg/dL Final Comment: Performed by [place] [address] [facility] [place] [address] 12/09/2018 18:05 113 (H) 70 [...] this chart may have been created with Nanomech voice recognition software. Occasi onal wrong-word or sound-alike substitutions may have occurred due to the inherent mckeon itations of voice recognition software. Please read the chart carefully and recognize, using context, where these substitutions have occurred Cordell Mcgarry LICSW - 03/28/2019 2:57 PM PDTSOCIAL WORK D/C PLAN: SNF: [facility] NEXT STEPS: Await bed availability INTERVENTION: On-going dc planning. Rec'd update from [facility]. They confirm they have r ec'd clinical notes and are currently reviewing. SW will follow. ASSESSMENT/CHART REVIEW:73 yr old femalewith a history of ESRD on hemodialysis, hypertens ion, type 2 diabetes, hypothyroidism,chronic anemia,hyperlipidemia, hx of stroke [facility] noted on MRI concerning fo r osteomyelitis. SW met with pt's sister, Yina, and her cousin, Keri, who were waiting in pt's room while s he was in dialysis. SW will need to follow up with pt re: d/c planning. Pt's sister and co in related that pt mostly lives at Yina's house outside [place], [place], but does not like to be tied down because she enjoys attending [place] festivals and many events. She does atten d dialysis weekly. Pt has a vehicle and is very independent. D/C TRANSPORT: tbd BARRIERS TO D/C: none CONTACTS: Yina La: sister India Tilley: sister [facility]: [phone] fax: [phone] [facility] [phone] Mario Alberto Gonzales MD - 03/28/2019 7:34 AM PDTFormatting of this note might be different from the maynor rollins Infectious Diseases Progress Note Pt. Name/Age/: Estefani Tilley 73 y.o. 1945 Med. Record Number: [id number] Date of admission: 03/24/2019 Patient admitted with [...] Electronically signed by: Carlos Jansen, 03/28/2019 7:34 [facility] Katey Solis MD - 03/27/2019 [...] [facility] for evaluation of T11-T12 lesion noted on MRI concerning for osteomyeliti s. Infectious disease consulted. Status post aspiration from her thoracic spine, Gram stain negative, cultures pending. Rosemary ent started on empiric vancomycin and cefepime. Will need 6 weeks of IV antibiotics. Discussed with nephrology, recommend placement of Tillman catheter instead of PICC line for health care manager IV antibiotics. Nephrology following for maintenance hemodialysis. [...] Tillman catheter instead of PICC line for correction IV antibiotics. Pain management -trial of lidocaine [...] Single Lumen 03/24/19 2143 Left Lateral Forearm jlhj-ykr-hywpud daniel ter system 20 gauge;1 1/4 in [...] - 99 mg/dL Final Comment: Performed by [facility] [address] [place] [address] 03/27/2019 13:58 82 65 - 99 mg/dL Final Comment: Performed by [facility] [address] [facility] [place] [address] 03/27/2019 06:39 83 65 - 99 mg/dL Final Comment: Performed by [facility] [address] [facility] [place] [address] 12/09/2018 18:05 113 (H) 70 - 109 [...] this chart may have been created with Nanomech voice recognition software. Occasi onal wrong-word or sound-alike substitutions may have occurred due to the inherent mckeon itations of voice recognition software. Please read the chart carefully and recognize, using context, where these substitutions have occurred Darlin Mcgarry LICSW - 03/27/2019 3:17 PM PDTSOCIAL WORK D/C PLAN: SNF: [facility] NEXT STEPS: Await bed availability INTERVENTION: Rec'd call from Emili at [facility]. She states the contracted f acility near pt's home is [facility]. Spoke with pt and with sister India. Referral and (-) Pasrr sent to [facility]. Copy of Pasrr placed in light chart with request to file into jos rds. SW will follow. ASSESSMENT/CHART REVIEW:73 yr old femalewith a history of ESRD on hemodialysis, hypertens ion, type 2 diabetes, hypothyroidism,chronic anemia,hyperlipidemia, hx of stroke [facility] noted on MRI concerning fo r osteomyelitis. SW met with pt's sister, Yina, and her cousin, Keri, who were waiting in pt's room while s he was in dialysis. SW will need to follow up with pt re: d/c planning. Pt's sister and co usin related that pt mostly lives at Yina's house outside [place], [place], but does not like to be tied down because she enjoys attending [place] festivals and many events. She does atten d dialysis weekly. Pt has a vehicle and is very independent. D/C TRANSPORT: tbd BARRIERS TO D/C: none CONTACTS: Yina La: sister India Tilley: sister [facility]: [phone] fax: [phone] [place] [phone] Gregg Mcgarry [facility] - 03/27/2019 2:17 PM PDTFormatting of this note might be different from jerald posadas original. SOCIAL WORK D/C PLAN: SNF NEXT STEPS: SW to follow up with pt regarding SNF preference INTERVENTION: On-going dc planning, chart reviewed and met with pt. Discussed need of health care manager IV abx, Discussed options. Provided list of [...] pt mostly lives at Yina's house outside [place], [place], but does not like to be tied down because she enjoys attending [place] festivals and many events. She does atten d dialysis weekly. Pt has a vehicle and is very independent. ASSESSMENT/CHART REVIEW:73 yr old femalewith a history of ESRD on hemodialysis, hypertens ion, type 2 diabetes, hypothyroidism,chronic anemia,hyperlipidemia, hx of stroke [facility] noted on MRI concerning fo r osteomyelitis. D/C TRANSPORT: tbd BARRIERS TO D/C: none CONTACTS: Yina La Sister [phone] India Tilley Sister [phone] Irish Cadet, Intelligent Systems Engineer - 03/27/2019 1:33 PM PDTFormatting of this [...] mg/dL (H)). Lab Results Component Value Date/Time [facility] 17.7 03/27/2019 05:12 I/O last 3 completed shifts: In: 360 [P.O.:360] Out: 1 [Urine:1] I/O this shift: In: - Out: 2000 Micro/Cultures: BCx - NGTD, BiopsyCx - NGTD Per P&T-approved Vancomycin Protocol Electronically signed by: Aimee Carroll, Intelligent Systems Engineer 03/27/2019 13:33Electronically si gned by Ray Joel, PharmD at 03/27/2019 2:04 PM PDT Associated attestation - Ray Joel, PharmD - 03/27/2019 2:04 PM PDTI reviewed and agr ee with the assessment and plan. Ray Joel, PharmD 03/27/2019 14:04 Randy Corrigan MD - 03/27/2019 10:52 AM PDT [facility] INPATIENT ROUNDING NOTE Date of Service: 03/27/2019 Rounding Physician: Randy Corrigan MD Patient Name: Estefani Tilley : 1945 Medical Record: [id number] Hospital Summary: Estefani Tilley is a 73 y.o. female with a PMHx of ESRD, HTN, Dm type 2, hypothyroidism, HLd, CVA who is under the care of Dr Muñoz at [facility]3] who dialyzes MWF admitted with possible osteo [...] Tilley 73 y.o. 1945 Med. Record Number: [id number] Date of admission: 03/24/2019 Patient admitted with [...] Electronically signed by: Carlos Jansen, 03/27/2019 7:10 [facility] Katey Solis MD - 03/26/2019 [...] [facility] [place] for evaluation of T11-T12 lesion noted on [...] Single Lumen 03/24/19 2143 Left Lateral Forearm ypzv-eqt-qxyvzc daniel ter system 20 gauge;1 1/4 in [...] - 99 mg/dL Final Comment: Performed by [facility] [address] [facility] [address] 03/26/2019 06:49 116 (H) 65 - 99 mg/dL Final Comment: Performed by [facility] [address] [facility] [place] [address] 03/25/2019 20:37 110 (H) 65 - 99 mg/dL Final Comment: Performed by [facility] [address] [place] [address] 12/09/2018 18:05 113 (H) 70 - 109 [...] this chart may have been created with [employer] voice recognition software. Occasi onal wrong-word or [...] Vancomycin Protocol Electronically signed by: Jose Menard, Intelligent Systems Engineer 03/26/2019 10:52 Hsu, Randy Nunez MD - 03/26/2019 1 0:38 AM PDT [facility] INPATIENT ROUNDING NOTE Date of Service: 03/26/2019 Rounding Physician: Randy Corrigan MD Patient Name: Estefani Tilley : 1945 Medical Record: [id number] Hospital Summary: Estefani Tilley is a 73 y.o. female with a PMHx of ESRD, HTN, Dm type 2, hypothyroidism, HLd, CVA who is under the care of Dr Muñoz at [facility]3] who dialyzes MWF admitted with possible osteo disccitis t11/t12 ASSESSMENT AND PLAN 1. ESRD/HD dependent Access is LUE AVF working well No indications for HD today Usually dialyzes MWF at [facility]3] Hd tommorow 2. Anemia Hg at goal [...] Tilley 73 y.o. 1945 Med. Record Number: [id number] Date of admission: 03/24/2019 Patient admitted with [...] Electronically signed by: Carlos Jansen, 03/26/2019 8:03 [facility] Katey Solis MD - 03/25/2019 [...] [facility] [place] for evaluation of T11-T12 lesion noted on [...] Peripheral IV Line - Single Lumen 03/24/19 6393 Left Lateral Forearm eeqi-tqr-ytxkxe daniel ter system 20 gauge;1 1/4 in [...] - 99 mg/dL Final Comment: Performed by [facility] [address] [place] [address] 03/25/2019 06:52 107 (H) 65 - 99 mg/dL Final Comment: Performed by [facility] [address] [place] [address] 03/24/2019 20:11 112 (H) 65 - 99 mg/dL Final Comment: Performed by [facility] [address] [place] [address] 12/09/2018 18:05 113 (H) 70 - 109 [...] this chart may have been created with [employer] voice recognition software. Occasi onal wrong-word or sound-alike substitutions may have occurred due to the inherent mckeon itations of voice recognition software. Please read the chart carefully and recognize, using context, where these substitutions have occurred su, Randy Nunez MD - 0 03/25/2019 1:47 PM PDT [facility] INPATIENT ROUNDING NOTE Date of Service: 03/25/2019 Rounding Physician: Randy Corrigan MD Patient Name: Estefani Tilley : 1945 Medical Record: [id number] Hospital Summary: Estefani Tilley is a 73 y.o. female with a PMHx of ESRD, HTN, Dm type 2, hypothyroidism, HLd, CVA who is under the care of Dr Muñoz at [facility]3] who dialyzes MWF admitted with possible osteo disccitis t11/t12 ASSESSMENT AND PLAN 1. ESRD/HD dependent Access is LUE AVF working well No indications for HD today Usually dialyzes MWF at [facility]3] She is below her EDW an EDW [...] Trace Corrigan MD, 03/25/2019, 13:47 etNan wilkes STATISTICAL FINANCIAL ANALYST - 03/25/2019 10:49 AM PDT SOCIAL WORK [...] pt mostly lives at Yina's house outside [place], [place], but does not like to be tied down because she enjoys attending [place] festivals and many events. She does atten d dialysis weekly. Pt has a vehicle and is very independent. ASSESSMENT/CHART REVIEW:73 yr old femalewith a history of ESRD on hemodialysis, hypertens ion, type 2 diabetes, hypothyroidism,chronic anemia,hyperlipidemia, hx of stroke [facility]-T12 lesion noted on MRI concerning fo r osteomyelitis. D/C TRANSPORT: tbd BARRIERS TO D/C: none CONTACTS: Yina La Sister [phone] India Tilley Sister [phone] Carlos Gonzales M D - 03/25/2019 8:34 AM PDT Infectious Diseases Progress Note Pt. Name/Age/: Estefani Tilley 73 y.o. 1945 Med. Record Number: [id number] Date of admission: 03/24/2019 Patient admitted with [...] Electronically signed by: Carlos Jansen, 03/25/2019 8:34 [facility] Jose Gamez, Intelligent Systems Engineer - 03/24/2019 10:46 PM PDTFormatting of this note might be different from the origin nc. Pharmacy Progress Note VANCOMYCIN PER PHARMACY PROTOCOL: [...] Vancomycin Protocol Electronically signed by: Jose Menard, Intelligent Systems Engineer 03/24/2019 22:46 ladys [place] MSW - 9 [...] pt mostly lives at Yina's house outside [place], [place], but do es not like to be tied down because she enjoys attending [place] festivals and many events. She does attend dialysis weekly. Pt has a vehicle and is very independent. ASSESSMENT/CHART REVIEW:73 yr old female with a history of ESRD on hemodialysis, hypertensi on, type 2 diabetes, hypothyroidism, chronic anemia, hyperlipidemia, hx of stroke transferre d from [facility] for evaluation of T11-T12 lesion noted on MRI concerning for ost eomyelitis. D/C TRANSPORT: tbd BARRIERS TO D/C: none CONTACTS: Yina La Sister [phone] India Tilley Sister [phone] atey Hill MD - 03/24/2019 3:53 PM PDTPatient seen and examined. Chart reviewed. Briefly, 73-year-old female with history of ESRD on hemodialysis, hypertension, type 2 diab etes, hypothyroidism, chronic anemia, hyperlipidemia with a history of stroke transferred fr [facility] for evaluation of T11-T12 lesion noted on [...] not have any p raza, consider antidepressants. 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 2. Target Trough: 15-20 mcg/ml [...] Procedure Component Value Units Date/Time Culture, Blood [[id number]] Collected: 03/23/192332 Order Status: Sent Lab Status: In process Updated: 03/23/192348 Specimen: Blood Culture, Blood [[id number]] Collected: 03/23/192254 Order Status: Sent Lab Status: [...] PROVIDEJOSE AE | | | POC | [facility] [address], | | SACRED | | | | [place] [address] | | HEART | | | |Performed by [facility] [address], [place], [place] | | MEDICAL | | | [...] SACRED | [address] | [place], [place] | | | [facility]ICAL [facility] [...] | PROVIDENCE | | | POC | [facility] [address], | | SACRED | | | | [place] [address] | | HEART | | | |Performed by [facility] [address], [place] [address] | | MEDICAL | | | | [...] + + | JIMRENUKA LIZ | [address] | [place] [address] | | | [facility] | | | | | [...] | | LABORATORY | | | | [facility] [address], | | [place] | | | | [place] [address] | | | | + + + + + + + + | Specimen | + + | Blood specimen | | (specimen) | + + + + + + + | Performing | Address | City/State/Zipcode | Phone Number | | Organization | | | | + + + + + | [facility] | [address] | [place] [address] | | | [facility] | | | | | [...] ENCE | | | Immature | by [facility] [address], | K/uL | SACRED | | | Granulocyte | [place] [address] | | HEART | | | s |Performed by [facility] [address], [place] [address] | | MEDICA L | | | [...] + + | [facility] | [address] | [place] [address] | | | [facility] | | | | | [...] by | | | | | | [facility] [address], | | | | | | [place] [address] | | | | + + + + + + + + | Specimen | + + | Blood specimen | | (specimen) | + + + + + + + | Performing | Address | City/State/Zipcode | Phone Number | | Organization | | | | + + + + + | B[facility] | [address] | [place] [address] | | | [facility] | | | | | [...] | | | POC | Performed by [facility] [address] | | SACRED | | | | [address] [place] | | HEART | | | | [address] | | MEDICAL | | | | [...] + | PROVID[facility]JOSE AE [facility] | [address] | [place] [address] | | | [facility] | | | | | [...] | | | POC | Performed by [facility] [address] | | SACRED | | | | [address], [place] | | HEART | | | | [address] | | MEDICAL | | | | [...] + + | BETH LIZ | [address] | [place] [address] | | | [facility] | | | | | [...] | | | POC | Performed by [facility] [address] | | SACRED | | | | [address] [place] | | HEART | | | | [address] | | MEDICAL | | | | [...] + + | RIMAE [facility] | [address] | [place] [address] | | | [facility] | | | | | [...] | | | POC | Performed by [facility] [address] | | SACRED | | | | [address], [place] | | HEART | | | | [address] | | MEDICAL | | | | [...] + | BETH LIZ | [address] | [place] [address] | | | [facility] | | | | | [...] PROVIDE NCE | | | | by [facility] [address] [facility] [address], | | SACRED | | | | [place] [address] | | HEART | | | |Performed by [facility] [address] [facility] [address], [place] [address] | | MEDICAL | | | | [...] + + | BETH [facility]Z | [address] | [place] [address] | | | [facility] | | | | | [...] LUIS CE | | | | by [facility] [address], | | SACRED | | | | [place] [address] | | HEART | | | |Performed by [facility] [address], [place] [address] | | MEDICAL | | | | [...] + + | [facility] | [address] | [place] [address] | | | [facility]ENTER | [...] | | LABORATORY | | | | [facility] [address], | | [place] | | | | [place] [address] | | | | + + + + + + + + | Specimen | + + | Blood specimen | | (specimen) | + + + + + + + | Performing | Address | City/State/Zipcode | Phone Number | | Organization | | | | + + + + + | [facility] | [address] | [place] [address] | | | [facility] | | | | | [...] ENCE | | | Counted | by [place] [address] [facility] [address], | | SACRED | | | | [place] [address] | | HEART | | | |Performed by [facility] [address], [place] [address] | | MEDICA L | | | [...] [address] | [place] [address] | | | [facility] | | | | | [...] | | | POC | Performed by [facility] [address] | | SACRED | | | | [address], [place] | | HEART | | | | [address] | | MEDICAL | | | | [...] [address] | [place] [address] | | | HEART [facility] [...] | [facility] | | | POC | [facility] [address], | | SACRED | | | | [place] [address] | | HEART | | | |Performed by [facility] [address], [place] [address] | | MEDICAL | | | | [...] + + | JIMRENUKA LIZ | [address] | [place] [address] | | | [facility] | | | | | [...] | | | POC | Performed by [facility] [address] | | SACRED | | | | [address] [place] | | HEART | | | | [address] | | MEDICAL | | | | [...] + + | [facility] | [address] | [place], [place] | | | [facility] [...] | PROVIDENCE | | | POC | [facility] [address], | | SACRED | | | | [place] | | HEART | | | |Performed by [facility] [address] [facility] [address], [place] | | MEDICAL | | | [...] + + | BETH LIZ | [address] | [place] [address] | | | [facility] | | | | | [...] by | | | | | | [facility] [address], | | | | | | [place] [address] | | | | + + + + + + + + | Specimen | + + | Blood specimen | | (specimen) | + + + + + + + | Performing | Address | City/State/Zipcode | Phone Number | | Organization | | | | + + + + + | [facility] | [address] | [place] [address] | | | [facility] | | | | | [...] ENCE | | | Counted | by [place] [address], | | SACRED | | | | [place] [address] | | HEART | | | |Performed by [facility] [address], [place] [address] | | MEDICA L | | | [...] + | JIMJOSE ADora LIZ | [address] | [place] [address] | | | [facility] | | | | | [...] PROVIDEN CE | | | | by [facility] [address], | | SACRED | | | | [place] | | HEART | | | |Performed by [facility] [address] [facility] [address], [place] | | MEDICAL | | | [...] + | PROVIDEJOSE AE SACRED | [address] | [place], [place] | | | [facility]ENTER [...] | | LABORATORY | | | | [facility] [address] [place], | | CERNER | | | | [place] [address] | | | | + + + + + + + + | Specimen | + + | Blood specimen | | (specimen) | + + + + + + + | Performing | Address | City/State/Zipcode | Phone Number | | Organization | | | | + + + + + | [facility] | [address] | [place] [address] | | | [facility] | | | | | [...] | | | POC | Performed by [facility] [address] | | SACREVANS | | | | [address] [place], [place] | | HEART | | | | [address] | | MEDICAL | | | | [...] + | PROVIDEJOSE AE [facility] | [address] | [place] [address] | | | [facility] | [...] | | | | Dictated by: Lisbeth hCoi Eric | | | | Signed by: [...] | | | POC | Performed by [facility] [address] | | SACRED | | | | [address] [place] | | HEART | | | | [address] | | MEDICAL | | | | [...] Ave. | [place] | | | [facility] | | | | | [...] | PROVIDENCE | | | POC | [facility] [address], | | SACRED | | | | [place] | | HEART | | | |Performed by [facility] [address], [place] [address] | | MEDICAL | | | | [...] + + | BETH LIZ | [address] | [place] [address] | | | [facility] | [...] | | LABORATORY | | | | [facility] [address] [place], | | [place] | | | | [place] [address] | | | | + + + + + + + + | Specimen | + + | Blood specimen | | (specimen) | + + + + + + + | Performing | Address | City/State/Zipcode | Phone Number | | Organization | | | | + + + + + | [facility] | [address] | [place] [address] | | | [facility] | [...] PROVIDE NCE | | | | by [facility] [address], | | SACRED | | | | [place] [address] | | HEART | | | |Performed by [facility] [address], [place] [address] | | MEDICAL | | | | [...] [address] | [place] [address] | | | [facility] | | | | | [...] | | | POC | Performed by [facility] [address] | | SACRED | | | | [address], [place] | | HEART | | | | [address] | | MEDICAL | | | | [...] + | JIMJOSE ADora AGUSTO | [address] | [place] [address] | | | [facility] | | | | | [...] | | | POC | Performed by [facility] [address] | | SACRED | | | | [address] [place] | | HEART | | | | [address] | | MEDICAL | | | | [...] [address] | [place] [address] | | | [facility] | | | | | [...] [place] | | | | [place] [address] | | HEART | | | |Performed by [facility] [address], [place] [address] | | MEDICAL | | | | [...] + + | B[facility] | [address] | [place], [place] | | | [facility] [...] | PROVIDENCE | | | POC | [facility] [address], | | SACRED | | | | [place] [address] | | HEART | | | |Performed by [facility] [address], [place] [address] | | MEDICAL | | | | [...] + | JIMJOSE ADora LIZ | [address] | [place] [address] | | | [facility] | | | | | [...] by | | | | | | [facility] [address], | | | | | | [place] [address] | | | | + + + + + + + + | Specimen | + + | Blood specimen | | (specimen) | + + + + + + + | Performing | Address | City/State/Zipcode | Phone Number | | Organization | | | | + + + + + | [facility]SE AE [facility] | [address] | [place] [address] | | | [facility] | | | | | [...] | | | POC | Performed by [facility] [address] | | SACRED | | | | [address], [place] | | HEART | | | | [address] | | MEDICAL | | | | [...] + | BETH LIZ | [address] | [place] [address] | | | [facility] | | | | | [...] | | | POC | Performed by [facility] [address] | | SACRED | | | | [address] [place] | | HEART | | | | [address] | | MEDICAL | | | | [...] [address] | [place] [address] | | | [facility] | | | | | [...] | | | POC | Performed by [facility] [address] | | SACRED | | | | [address], [place] | | HEART | | | | [address] | | MEDICAL | | | | [...] + + | BETH [facility] | [address] | [place] [address] | | | [facility] | [...] PROVIDENCE | | | | Performed by [facility] [address] | | SACRED | | | | [address] [place] | | HEART | | | | [address] | | MEDICAL | | | | [...] | [address] | [place] [address] | | | [facility] | | | | | [...] | | | POC | Performed by [facility] [address] | | SACRED | | | | [address], [place] | | HEART | | | | [address] | | MEDICAL | | | | [...] + + | BETH [facility]Z | [address] | [place] [address] | | | [facility] [...] by | | | | | | [facility] [address] [place], | | | | | | [place] [address] | | | | + + + + + + + + | Specimen | + + | Blood specimen | | (specimen) | + + + + + + + | Performing | Address | City/State/Zipcode | Phone Number | | Organization | | | | + + + + + | JIMRENUKA LIZ | [address] | [place] [address] | | | [facility] | | | | | [...] | | LABORATORY | | | | [facility] [address] | | [place] | | | | [place] [address] | | | | + + + + + + + + | Specimen | + + | Blood specimen | | (specimen) | + + + + + + + | Performing | Address | City/State/Zipcode | Phone Number | | Organization | | | | + + + + + | [facility] | [address] | [place] [address] | | | [facility] | | | | | [...] PROVIDE NCE | | | | by [facility] [address], | | SACRED | | | | [place] [address] | | HEART | | | |Performed by [facility] [address], [place] [address] | | MEDICAL | | | | [...] + | BETH LIZ | [address] | [place] [address] | | | [facility] | | | | | YANY [...] CE | | | B-12 | by [facility] [address], | | SACRED | | | | [place] [address] | | HEART | | | |Performed by [facility] [address], [place] | | MEDICAL | | | [...] + + | [facility] | [address] | [place] | | | [facility] [...] by | | | | | | [facility] [address], | | | | | | [place] [address] | | | | + + + + + + + + | Specimen | + + | Blood specimen | | (specimen) | + + + + + + + | Performing | Address | City/State/Zipcode | Phone Number | | Organization | | | | + + + + + | [facility] | [address] | [place] [address] | | | [facility] | | | | | [...] | | | POC | Performed by [facility] [address] | | SACRED | | | | [address] [place] | | HEART | | | | [address] | | MEDICAL | | | | [...] + | [facility] | [address] | [place] [address] | | | [facility] | | | | | [...] | | | POC | Performed by [facility] [address] | | SACRED | | | | [address], [place] | | HEART | | | | [address] | | MEDICAL | | | | [...] + | [facility] | [address] | [place] [address] | | | [facility] | | | | | [...] | | | POC | Performed by [facility] [address] | | SACRED | | | | [address] [place] | | HEART | | | | [address] | | MEDICAL | | | | [...] + | [facility] | [address] | [place] [address] | | | [facility] | [...] PROVIDE NCE | | | | by [facility] [address], | | SACRED | | | | [place] [address] | | HEART | | | |Performed by [facility] [address], [place] [address] | | MEDICAL | | | | [...] + + | BETH LIZ | [address] | [place] | | | [facility] | | | | | [...] LUIS CE | | | | by [facility] [address], | | [place] | | | | [place] | | HEART | | | |Performed by [facility] [address], [place] [address] | | MEDICAL | | | | [...] + + | BETH LIZ | [address] [place] | [place] [address] | | | [facility] | [...] | | LABORATORY | | | | [facility] [address] [facility] [address], | | [place] | | | | [place] [address] | | | | + + + + + + + + | Specimen | + + | Blood specimen | | (specimen) | + + + + + + + | Performing | Address | City/State/Zipcode | Phone Number | | Organization | | | | + + + + + | BETH LIZ | [address] | [place] [address] | | | [facility] | | | | | [...] | | | POC | Performed by [facility] [address] | | SACRED | | | | [address] [place] | | HEART | | | | [phone] | | MEDICAL | | | | [...] + | [facility] | [address] | [place] [address] | | | [facility] | | | | | [...] | | | POC | Performed by [facility] [address] | | SACRED | | | | [address], [place] | | HEART | | | | [phone] | | MEDICAL | | | | [...] + | BETH LIZ | [address] | [place] [address] | | | [facility] | | | | | [...] | SACRED | | | Total | [id number] | | HEART | | | | [address] [place], [place] | | MEDICAL | | | | [phone] | | CENTER | | | | L Ph:[phone] | | LABORATORY | | | | [...] + + | BETH LIZ | [address] | [place] [address] | | | [facility] | | | | | [...] | SACRED | | | | by [facility] [address], | | HEART | | | | [place] [address] | | MEDICAL | | | | [...] [address] | [place] [address] | | | [facility] | | | | | [...] | SACRED | | | | by [facility] [address], | | HEART | | | | [place] [address] | | MEDICAL | | | | [...] + + | BETH LIZ | [address] [place] | [place] [address] | | | HEART [facility] [...] | MEDICAL | | | | by [facility] [address], | | CENTER | | | | [place] [address] | | LABORATORY | | | |Performed by [facility] [address], [place] [address] | | CERNER | | | | [...] + + | BETH LIZ | [address] | [place] [address] | | | [facility] | | | | | [...] | | | POC | Performed by [facility] [address] | | [place]ANS | | | | [place] | | HEART | | | | [address] | | MEDICAL | | | | [...] + | BETH LIZ | [address] [facility] [address] | [place] [address] | | | [facility] | | | | | [...] | | | POC | Performed by [facility] [address] | | SACRED | [...] [address] | [place] [address] | | | HEART [facility] [...] CENTER | | | | 3.5Performed by [facility] [address] | | LABORATORY | | | | [address], [place] | | [place] | | | | [address] | | | | + + + + + + + + | Specimen | + + | Blood specimen | | (specimen) | + + + + + + + | Performing | Address | City/State/Zipcode | Phone Number | | Organization | | | | + + + + + | BETH LIZ | [address] | [place] [address] | | | [facility] | | | | | [...] | | | Immature | Performed by [facility] [address] | K/uL | SACRED | | | Granulocyte | [place] | | HEART | | | s | [phone] | | MEDICAL | | | | [...] + + | BETH LIZ | [address] | [place] [address] | | | [facility] | | | | | [...] | | LABORATORY | | | | [facility] [address], | | [place] | | | | [place] [address] | | | | + + + + + + + + | Specimen | + + | Blood specimen | | (specimen) | + + + + + + + | Performing | Address | City/State/Zipcode | Phone Number | | Organization | | | | + + + + + | BETH LIZ | [address] | [place] [address] | | | [facility] | | | | | [...] | | | | First dose on [facility] 03/30/19 at 1130 | | AM [...] | | | | First dose on [facility] 03/30/19 at 2100 | | PM [...] scheduled: AC, NPO, Daytime | | | 4020-4217 Use NIGHT DOSE for | | | doses scheduled: HS, 3AM, | | | Nighttime 8004-5526 If the BG is | | | [...] | | | | | | | [place] 10/325 if ordered., | | | [...]
--- OUTSIDE RECORDS SUMMARY | ~2019-07-27 | XMS | Encounter Summary ---
Demographics + + + | Address | [address] | | | [place] [address] | + + + | Home Phone [...] Author | [facility] | | | and Kamaljitana | + + + | Organization | [facility] | | | and [place] | + + + | Address | Unknown | + + + | Phone | Unavailable | + + + Support + + + + + | Name | Relationship | Address | Phone | + + + + + | India Tilley | ECON | [address] | | | | | [place], [place] | | | | | [address] | | + + + + + | Yina La | ECON | Unknown | | + + + + + | Yina Peterson | ECON | Unknown | | + + + + + | Leatha Casillas | ECON | Unknown | | + + + + + Care Team Providers + +------+ + | Care Credit Risk Manager Name | Role | Phone | + +------+ + PCP | Unavailable | + +------+ + Encounter Details +--------+ + + + + | Date | Type | Department | Care Team | Description | +--------+ + + + + | 01/04/ | Hospital | [facility] | Santos Stephenson | Decreased glomerular | | 2018 | Encounter | MED CTR OR INTRA OP | MD Kinga, FACS 380 | filtration rate | | | | [address] | [facility] | (GFR) | | | | [place], [place] | [place] [address] | | | | | [address] | [phone] | | | | | [phone] | | | +--------+ + + + [...] what medicines and drugsyou take. This includes cqrk-dct-nhk nter medicines, herbs, supplements, alcohol or other [...] ke ep you safe. Date Last Reviewed: 08/13/201619993054-3702 [employer] [address] [place] [address]. All righ ts reserved. This information is not intended as a substitute for professional medical care. Always follow your healthcare professional's instructions. [facility] POST-OP INSTRUCTIONS: Arterio-Venous Fistula 1. [...] | | | | | PDT | ([facility]) (N18.5) | | + +--------+ + + [...] [address] | [place] | [phone] | | [facility] | | [address] | | | - LABORATORY | | [...] + | [facility] | [address] | [place] | [phone] | | [facility] | | [address] | | | - LABORATORY | | [...] [address] | [place] | [phone] | | [facility] | | [address] | | | - LABORATORY | | [...] | Basophils | | K/uL | [facility] | [...] + | [facility] | [address] | [place] | [phone] | | [facility] | | [address] | | | - LABORATORY | | [...] | mL/min/1.73m2 | NERISSA | | | P[place]N [place]ER | RATE,ESTIMATED | | MEDICAL | | | | mL/min/1.44s9Ismj than | | CENTER - | | [...] [address] | [place] | [phone] | | [facility] | | [address] | | | - LABORATORY | | [...]
--- OUTSIDE RECORDS SUMMARY | ~2019-07-27 | XMS | Encounter Summary ---
Demographics + + + | Address | [address] | | | [place] [address] | + + + | Home Phone [...] Author | [facility] | | | and Kamaljitana | + + + | Organization | [facility] | | | and [place] | + + + | Address | Unknown | + + + | Phone | Unavailable | + + + Support + + + + + | Name | Relationship | Address | Phone | + + + + + | India Tilley | ECON | [address] | | | | | [place], [place] | | | | | [address] | | + + + + + | Yina La | ECON | Unknown | | + + + + + | Yina Peterson | ECON | Unknown | | + + + + + | Leatha Casillas | ECON | Unknown | | + + + + + Care Team Providers + +------+ + | Care Forest Ecologist Name | Role | Phone | + +------+ + PCP | Unavailable | + +------+ + Encounter Details +--------+ + + + + | Date | Type | Department | Care Team | Description | +--------+ + + + + | 12/05/ | Hospital | [facility] | Carlos Sandoval | | | 2007 | Encounter | MED CTR XRAY [address] | MD [place] [address] [facility] | | | | | [place] | [place], [place] | | | | | [place] [address] | [id number] | | | | | [phone] | | | +--------+ + + + [...]
--- OUTSIDE RECORDS SUMMARY | ~2019-07-27 | XMS | Encounter Summary ---
Demographics + + + | Address | [address] | | | [place] [address] | + + + | Home Phone [...] + | Author | [facility] | | | and Kamaljitana | + + + | Organization | [facility] | | | and [place] | + + + | Address | Unknown | + + + | Phone | Unavailable | + + + Support + + + + + | Name | Relationship | Address | Phone | + + + + + | India Tilley | ECON | [address] | | | | | [place], [place] | | | | | [address] | | + + + + + | Yina La | ECON | Unknown | | + + + + + | Yina Peterson | ECON | Unknown | | + + + + + | Leatha Casillas | ECON | Unknown | | + + + + + Care Team Providers + +------+ + | Care Casino Manager Name | Role | Phone | [...] | Surgery | kidney | DO [address] | [address] | | | | | disease, | Gravity, [place] | [address] | | | | | stage V | [address] | [place], | | | | | ([facility]) | [facility], [place] | [place] [address] | | | | | | [address] | Phone: | | | | | | Phone: | [phone] | | | | | | [phone] | Fax: | | | | | | Fax: | [phone] | | | | | | [phone] | | +--------+ + + + + + Encounter Details +--------+---------+ + + + | Date | Type | Department | Care Team | Description | +--------+---------+ + + + | 01/10/ | Office | [facility] | Santos Stephenson | Chronic kidney | | 2018 | Visit | SURGERY [address] | MD Glenn FACS [address] | disease, stage V | | | | [place], [place] | [address] | (HCC) (Primary Dx); | | | | [address] | [place] [address] | Post-operative state | | | | [phone] | [phone] | | | | | | | [...] Placement; Surgeon: Nora Leo MD; Location : [facility] MAIN OR VEIN SURGERY Right 01/04/2018 Procedure: Right Transposed Basilic Vein to Proximal Radial Artery; Surgeon: Santos Stephenson MD, FACS; Location: [facility] MAIN OR Allergies Allergen Reactions Lisinopril [...] + | Chronic kidney disease, stage V ([facility]) - Primary Chronic kidney disease, Stage V | + + | Post-operative state Other postprocedural status | + + documented in this encounter
--- OUTSIDE RECORDS SUMMARY | ~2019-07-27 | XMS | Encounter Summary ---
Demographics + + + | Address | [address] | | | [place] [address] | + + + | Home Phone [...] | Author | [facility] | | | and [place]al[place] | + + + | Organization | [facility] | | | and [place] | + + + | Address | Unknown | + + + | Phone | Unavailable | + + + Support + + + + + | Name | Relationship | Address | Phone | + + + + + | India Tilley | ECON | [address] | | | | | [place], [place] | | | | | [address] | | + + + + + | Yina La | ECON | Unknown | | + + + + + | Yina Peterson | ECON | Unknown | | + + + + + | Leatha Casillas | ECON | Unknown | | + + + + + Care Team Providers + +------+ + | Care Air Defence Officer Name | Role | Phone | + +------+ + | Renato Pierson MENTALLY IMPAIRED TEACHER | PCP | | + +------+ [...] | al disc | [address] | [place], [place] | | | | | (pyogenic), | [place], [place] | [address] | | | | | thoracic | [address] | Phone: | | | | | region ([facility]) | Phone: | [phone] | | | | | | [phone] | Fax: | | | | | 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: | [phone] | | | | | s of | [phone] | | | | | | thoracic | | | | | | | vertebra | | | | | | | ([facility]) | | | | | [...] + + | 05/22/ | Hospital | [facility] | Fabiana Miller, | No Show | | 2019 | Encounter | [facility] MRI | Nick Apodaca MD | | | | | [address] | [address] | | | | | [place], [place] | [place] [address] | | | | | [address] | [phone] | | | | | [phone] | | | +--------+ + + + [...]
--- OUTSIDE RECORDS SUMMARY | ~2019-07-27 | XMS | Encounter Summary ---
Demographics + + + | Address | [address] | | | [place] [address] | + + + | Home Phone [...] Author | [facility] | | | and Kamaljitana | + + + | Organization | [facility] | | | and [place] | + + + | Address | Unknown | + + + | Phone | Unavailable | + + + Support + + + + + | Name | Relationship | Address | Phone | + + + + + | India Campos | ECON | [address] | | | | | [place], [place] | | | | | [address] | | + + + + + | Yina La | ECON | Unknown | | + + + + + | Yina Peterson | ECON | Unknown | | + + + + + | Leatha Casillas | ECON | Unknown | | + + + + + Care Team Providers + +------+ + | Care Account Manager Education Name | Role | Phone | + [...] renal | [address] | [address] | | | | | disease) on | [facility] | [place], | | | | | dialysis | [place], [place] | [place] [address] | | | | | ([facility]) | [address] | Phone: | | | | | | Phone: | [phone] | | | | | | [phone] | Fax: | | | | | | Fax: | [phone] | | | | | | [phone] | | +--------+--------+ + + + + [...] | | | | dialysis | [place] | [place] | | | | | ([facility]) | [address] | [address] | | | | | Essential | Phone: | Phone: | | | | | hypertension | [phone] | [phone] | | | | | Type 2 | Fax: | Fax: | | | | | diabetes | [phone] | [phone] | | | | | mellitus | [...] | | | ([facility]) | | | +--------+ + + + [...] | | | | | dialysis | [facility] [place] | [place] | | | | | ([facility]) | [address] | [address] | | | | | Essential | Phone: | Phone: | | | | | hypertension | [phone] | [phone] | | | | | Type 2 | Fax: | Fax: | | | | | diabetes | [phone] | [phone] | | | | | mellitus | [...] | | | ([facility]) | | | +--------+ + + + [...] + + | 05/20/ | Hospital | [facility] | Mirza Retana | Hypoxia; Pulmonary | | 2019 - | Encounter | [facility] | MD Coy [address] | edema with | | | | [address] [place] | [address] [place] | congestive heart | | 05/25/ | | [place] [address] | [place] [address] | failure, NYHA class | | 2019 | | [phone] | [phone] | 4 (HCC); ESRD (end | | | | | | stage renal disease) | | | | | Nora Christina MD | on dialysis ([facility]); | | | | | [address] | Hypertensive | | | | | [place], [place] | urgency, malignant; | | | | | [address] | Anemia in chronic | | | | | | kidney disease, on | | | | | | chronic dialysis | | | | | | ([facility]); Essential | | | | | | hypertension; | | | | | | Osteomyelitis of | | | | | | thoracic region | | | | | | ([facility]); Type 2 | | | | | [...] Christina MD - 05/25/2019 11:24 AM PDT [facility] [place] HOSPITALIST DISCHARGE SUMMARY Pt. Name/Age/: Ara Campos [...] the setting of ESRD and missing HD [facility]. S/p thoracentesis wit h 1300cc fluid removed, studies c/w transudative effusion. Cytology negative for malignant c ells. No growth on culture thus far. Patient is on room air. Of note, recent echo in March sh owed normal EF. #Hypertensive urgency in the s/o volume overload #ESRD on HD Suspect chronic nonadherence with medications and patient also missed HD [facility]. SBP 200s on a rrival here. Blood pressure improved after HD, resumption of home medications. Amlodipine an d losartan also added, Nephrology will CTM as outpatient. #Acute metabolic encephalopathy Possibly 2/2 medication as patient received 1mg Ativan at OSH [facility]. At baseline currently. #Recent osteomyelitis Patient admitted [...] Nephrology Why: Nephrology follow up Contact information: [address] [place] [address] Condition: stable Diet: renal, cc Greater than 30 minutes were spent on discharge and coordination of post-hospital care. Electronically signed by: Nora Christina MD, 05/25/2019 11:24 [facility] documented in this enco unter Discharge [...] will likely include a biopsy in the [facility] down the line. Nora Christina MD [...] of Anemia, Arthritis, Back pain, Breast cancer ([facility]), Cancer ([facility]), Diabetes (HCC), Heart disease, Hemodialysis patient ([facility]), History of blood clots, Hypercholesteremia, Hypertensio n, Hypothyroidism, Renal failure, Seasonal allergies, and Stroke (cerebrum) ([facility]). . Risk fa ctors for MDR [...] Culture, Body Fluid, Sterile, Smear, with Anaerobes [[id number]] Collected: 05/22/19 150 Order Status: Sent Lab Status: In process Updated: 05/22/19 151 Specimen: Body Fluid from Pleural Fluid, Left Narrative: The following orders were created for panel order Culture, Body Fluid, Sterile, Smear, wit h Anaerobes. Procedure Abnormality Status --------- ------ Culture, Body Fluid, Aerobe[[id number]] Preliminary result Culture, Body Fluid, Bre...[[id number]] In process Please view results for these tests on the individual orders. Culture, Fungus, Smear [[id number]] Collected: 05/22/19 150 Order Status: Sent Lab Status: In process Updated: 05/22/19 1510 Specimen: Body Fluid from Pleural Fluid, Left Culture, Body Fluid, Aerobe [[id number]] Collected: 05/22/19 150 Order Status: Completed Lab Status: Preliminary result Updated: 05/24/19 1038 Specimen: Body Fluid from Pleural Fluid, Left Culture No growth to date Gram Stain Result 4+ White Blood Cells No organisms seen Culture, Body Fluid, Anaerobe [[id number]] Collected: 05/22/19 1509 Order Status: Resulted Lab Status: In process Updated: 05/22/19 1510 Specimen: Body Fluid from Pleural Fluid, Left Culture, MRSA [[id number]] Collected: 05/20/192021 Order Status: Completed Lab Status: Final result Updated: 05/22/19 0753 Specimen: Tissue from Nares Culture Negative for MRSA by chromogenic agar method. 2+ Coagulase positive Staphylococcus Culture, Blood, 2nd Specimen [[id number]] Collected: 05/18/19 1548 Order Status: Completed Lab Status: Final result Updated: 05/24/19545 RESULT NO GROWTH 6 DAYS RESULT Testing performed at [facility];[address] [place] [address];[place] [address] Comment: Testing performed at [facility], [address] [place] [address] Culture, Blood [[id number]] Collected: 05/18/19 1508 Order Status: Completed Lab Status: Final result Updated: 05/24/19545 Specimen: Blood from Antecubital, Right RESULT NO GROWTH 6 DAYS RESULT Testing performed at [facility];[address] [place] [address];[place] [address] Comment: Testing performed at [facility], [address] [place] [address], [place] [address] Culture, Blood [[id number]] Collected: 05/18/19 1447 Order Status: Canceled Lab [...] and htn Prior to admission dialysis schedule: [facility] Vancomycin Dosing in HD patients: Loading [...] ESR, Cxs, case with his previous ID Dress Designer, Dr. Nick Miller MD . He recommends [...] Bx's here. Therefore, shai kearney confer with [facility] IR, outpt. She was agreeable to staying one more nite for HD and clarif y AB regimen. Vanc. /Cefepime were given, IV, during discussion, after reviewing MRI report but before the phone conversation with Dr. Jung. BP control is better. Her Mental status is very clear. Also had HD x 5 hrs, 2K+, 35 HCO3 a nd tolerated well. [facility] Joo Rodriguez, Photography Assistant - 05/24/2019 3:46 PM PDT VANCOMYCIN PER [...] Culture, Body Fluid, Sterile, Smear, with Anaerobes [[id number]] Collected: 05/22/19 150 Order Status: Sent Lab Status: In process Updated: 05/22/191512 Specimen: Body Fluid from Pleural Fluid, Left Narrative: The following orders were created for panel order Culture, Body Fluid, Sterile, Smear, wit h Anaerobes. Procedure Abnormality Status --------- ------ Culture, Body Fluid, Aerobe[[id number]] Preliminary result Culture, Body Fluid, Bre...[[id number]] In process Please view results for these tests on the individual orders. Culture, Fungus, Smear [[id number]] Collected: 05/22/19 150 Order Status: Sent Lab Status: In process Updated: 05/22/19 151 Specimen: Body Fluid from Pleural Fluid, Left Culture, Body Fluid, Aerobe [[id number]] Collected: 05/22/19 150 Order Status: Completed Lab Status: Preliminary result Updated: 05/24/19 1038 Specimen: Body Fluid from Pleural Fluid, Left Culture No growth to date Gram Stain Result 4+ White Blood Cells No organisms seen Culture, Body Fluid, Anaerobe [[id number]] Collected: 05/22/19 150 Order Status: Resulted Lab Status: In process Updated: 05/22/19 151 Specimen: Body Fluid from Pleural Fluid, Left Culture, MRSA [[id number]] Collected: 05/20/192021 Order Status: Completed Lab Status: Final result Updated: 05/22/19 0753 Specimen: Tissue from Nares Culture Negative for MRSA by chromogenic agar method. 2+ Coagulase positive Staphylococcus Culture, Blood, 2nd Specimen [[id number]] Collected: 05/18/19 1548 Order Status: Completed Lab Status: Final result Updated: 05/24/19545 RESULT NO GROWTH 6 DAYS RESULT Testing performed at [facility];[address] [place] [address];[place] [address] Comment: Testing performed at [facility], [address] [place] [address], [place] [address] Culture, Blood [[id number]] Collected: 05/18/19 1508 Order Status: Completed Lab Status: Final result Updated: 05/24/19545 Specimen: Blood from Antecubital, Right RESULT NO GROWTH 6 DAYS RESULT Testing performed at [facility];[address] [place] [address];[place] [address] Comment: Testing performed at [facility], [address] [place] [address], [place] [address] Culture, Blood [[id number]] Collected: 05/18/19 1447 Order Status: Canceled Lab [...] BP elevated Prior to admission dialysis schedule: [facility] Vancomycin Dosing in HD patients: Loading [...] Monitoring Protocol Electronically signed by: Joo Bo, Photography Assistant 05/24/2019 15:46Electroni terri signed by Joo Bo, Photography Assistant at 05/24/2019 4:49 PM Kwame Guerin MD - 05/24/2019 11:04 AM PDTFormatting of this note might be different from the origin al. [facility] [place] HOSPITALIST PROGRESS NOTE Patient: Ara Campos : 1945: Age: 74 y.o. MedRec: [id number] Admission date: 05/20/2019 Hospital day # : 4 Physician author: Nora Christnia MD Today: 05/24/2019 Assessment and Hospital Course [...] as patient received 1mg Ativan at OSH [facility] [employer] [facility]. At baseline currently. #Recent osteomyelitis Patient admitted with T11-12 osteomyelitis and completed 6 weeks vanc/cefepime. Rep eat MRI again redemonstrated possible osteomyelitis - vanc and cefepime have been resumed, Deepa Muñoz is discussing case with ID. #Diabetes Blood sugars at goal. CCM. Patient is again very [facility] and is eating little [...] Culture, Body Fluid, Sterile, Smear, with Anaerobes [[id number]] Collected: 05/22/19 150 Order Status: Sent Lab Status: In process Updated: 05/22/191512 Specimen: Body Fluid from Pleural Fluid, Left Narrative: The following orders were created for panel order Culture, Body Fluid, Sterile, Smear, wit h Anaerobes. Procedure Abnormality Status --------- ------ Culture, Body Fluid, Aerobe[[id number]] Preliminary result Culture, Body Fluid, Bre...[[id number]] In process Please view results for these tests on the individual orders. Culture, Fungus, Smear [[id number]] Collected: 05/22/19 150 Order Status: Sent Lab Status: In process Updated: 05/22/191509 Specimen: Body Fluid from Pleural Fluid, Left Culture, Body Fluid, Aerobe [[id number]] Collected: 05/22/19 1509 Order Status: Completed Lab Status: Preliminary result Updated: 05/24/19 1038 Specimen: Body Fluid from Pleural Fluid, Left Culture No growth to date Gram Stain Result 4+ White Blood Cells No organisms seen Culture, Body Fluid, Anaerobe [[id number]] Collected: 05/22/19 1509 Order Status: Resulted Lab [...] Tobacco & Alcohol use/frequency: ? Recreational substances: Dmcsumknf-femeigl-ufdz asked how much or how often patient sta rich "I smoke as much as I want" Other: No changes to [facility] list, due to the fact that patient was very non compliant. She either di d not want to take her medications, or she stated that she did not know if she was taking th em. She did not want to do the interview. Best possible [facility] [employer] [facility] medication list after pharmacy review: Medication review performed and electronically signed by Kerry Jordan, Pain Medicine Physician 05/23/2019 16:20 Reviewed by Michelle Ochoa, PharmD 05/23/2019 18:26 Nora Guerin MD - 05/23/2019 3:20 PM PDT [place], [place] HOSPITALIST PROGRESS NOTE Patient: Ara Campos : 1945: Age: 74 y.o. MedRec: [id number] Admission date: 05/20/2019 Hospital day # : [...] as patient received 1mg Ativan at OSH [facility]. At baseline currently. #Recent osteomyelitis Patient admitted [...] Culture, Body Fluid, Sterile, Smear, with Anaerobes [[id number]] Collected: 05/22/191508 Order Status: Sent Lab Status: In process Updated: 05/22/191512 Specimen: Body Fluid from Pleural Fluid, Left Narrative: The following orders were created for panel order Culture, Body Fluid, Sterile, Smear, wit h Anaerobes. Procedure Abnormality Status --------- ------ Culture, Body Fluid, Aerobe[[id number]] Preliminary result Culture, Body Fluid, Bre...[[id number]] In process Please view results for these tests on the individual orders. Culture, Fungus, Smear [[id number]] Collected: 05/22/191508 Order Status: Sent Lab Status: In process Updated: 05/22/191509 Specimen: Body Fluid from Pleural Fluid, Left Culture, Body Fluid, Aerobe [[id number]] Collected: 05/22/191508 Order Status: Completed Lab Status: Preliminary result Updated: 05/23/19902 Specimen: Body Fluid from Pleural Fluid, Left Culture No growth to date Gram Stain Result 4+ White Blood Cells No organisms seen Culture, Body Fluid, Anaerobe [[id number]] Collected: 05/22/191508 Order Status: Resulted Lab Status: In process Updated: 09/09/19 1510 Specimen: Body Fluid from Pleural Fluid, Left Culture, MRSA [[id number]] Collected: 05/20/192021 Order Status: Completed Lab Status: [...] effusion, tomorrow. Thanks. See CT study. COMPAR JARRTE: None. PROTOCOL: After explaining the risks and [...] | | | | | | dialysis ([facility]) | | | | | | Essential [...] | | | | insulin ([facility]) | | + + +--------+ + + | Ambulatory referral | Outpatient | Routin | ESRD (end stage | Ordered: 05/25/2019 | | to Occupational | Referral | e | renal disease) on | | | Therapy | | | dialysis ([facility]) | | | | | | Essential [...] + | [facility] | [address] | [place] | [phone] | | [facility] | | [address] | | | - LABORATORY | | [...] [address] | [place] | [phone] | | [facility] | | [address] | | | - LABORATORY | | [...] | mL/min/1.73m2 | [facility] | | | [place] | RATE,ESTIMATED | | MEDICAL | | | | mL/min/1.83w5Bckt than | | CENTER - | | [...] [address] | [place] | [phone] | | [facility] | | [address] | | | - LABORATORY | | [...] + | [facility] | [address] | [place] | [phone] | | [facility] | | [address] | | | - LABORATORY | | [...] + | [facility] | [address] | [place] | [phone] | | [facility] | | [address] | | | - LABORATORY | | [...] [address] | [place] | [phone] | | [facility] | | [address] | | | - LABORATORY | | [...] + | [facility] | [address] | [place] | [phone] | | [facility] | | [address] | | | - LABORATORY | | [...] mL/min/1.73m2 | [facility] | | | [place] | RATE,ESTIMATED | | MEDICAL | | | | mL/min/1.65e3Ovda than | | CENTER - | | [...] | LABORATORY | | | | Lalitha Lead Burner. | | | | + + + [...] | [facility] | [address] | [place] | [phone] | | [facility] | | [address] | | | - LABORATORY | | [...] ST. | [address] | [place] | [phone] | | [facility] | | [address] | | | - LABORATORY | | [...] [address] | [place] | [phone] | | [facility] | | [address] | | | - LABORATORY | | [...] | POC | | | [facility] | | | | | | [address] | [place] | [phone] | | [facility] | | [address] | | | - LABORATORY | | [...] [address] | [place] | [phone] | | [facility] | | [address] | | | - LABORATORY | | [...] ST. | [address] | [place], [place] | [phone] | | [facility] | | [address] | | | - LABORATORY | | [...] mL/min/1.73m2 | [facility] | | | [place] | RATE,ESTIMATED | | MEDICAL | | | | mL/min/1.65q7Uiry than | | CENTER - | | [...] ST. | [address] | [place], [place] | [phone] | | [facility] | | [address] | | | - LABORATORY | | [...] [address] | [place] | [phone] | | [facility] | | [address] | | | - LABORATORY | | [address] | [place] | [phone] | | [facility] | | [address] | | | - LABORATORY | | [...] + | [facility] | [address] | [place], [place] | [phone] | | [facility] | | [address] | | | - LABORATORY | | [...] + | [facility] | [address] | [place] | [phone] | | [facility] | | [address] | | | - LABORATORY | | [...] Pako Evans, | REFERENCE LAB | | [place], [place] [id number] Warp Dresser: Violette Mcconnell MD, Phone: | LIZ EPSTEIN | | [phone] | | + + + + + + + + | Performing | Address | City/State/Zipcode | Phone Number | | Organization | | | | + + + + + | REFERENCE LAB | [address] | [place] [address] | [phone] | | [facility] | Drive [...] + + | Performed at: [address] [place] [address], | REFERENCE LAB | | [place], [place] [id number] Warp Dresser: Ernie Lee MD, Phone: | LIZ - TETE | | [phone] | | + + + + + + + + | Performing | Address | City/State/Zipcode | Phone Number | | Organization | | | | + + + + + | REFERENCE LAB | [address] | [place] [address] | [phone] | | [facility] | Drive [...] [address] | [place] | [phone] | | [facility] | | [address] | | | - LABORATORY | | [...] [address] | [place] | [phone] | | [facility] | | [address] | | | - LABORATORY | | [...] + + + | Performed at: - [place] [address], | REFERENCE LAB | | [place], [place] [id number] Warp Dresser: Ernie Lee MD, Phone: | [employer] [facility] | | [phone] Performed at: [address] | | | [place], [place] [address] Warp Dresser: Violette Mcconnell MD, | | | Phone: [phone] | | + + + + + + + + | Performing | Address | City/State/Zipcode | Phone Number | | Organization | | | | + + + + + | REFERENCE LAB | [address] | [place] [address] | [phone] | | [facility] | [address] | [place] | [phone] | | [facility] | | [address] | | | - LABORATORY | | [...] + | [facility] | [address] | [place] | [phone] | | [facility] | | [address] | | | - LABORATORY | | [...] + | [facility] | [address] | [place] | [phone] | | [facility] | | [address] | | | - LABORATORY | | [...] [address] | [place] | [phone] | | [facility] | | [address] | | | - LABORATORY | | [...] | | | FILTRATION | mL/min/1.73m2 | [facility] | | | [place] | RATE,ESTIMATED | | MEDICAL | | | | mL/min/1.52q1Tpkk than | | CENTER - | | [...] [address] | [place] | [phone] | | [facility] | | [address] | | | - LABORATORY | | [...] [address] | [place] | [phone] | | [facility] | | [address] | | | - LABORATORY | | [...] | [facility] | [address] | [place] | [phone] | | [facility] | | [address] | | | - LABORATORY | | [...] [address] | [place] | [phone] | | [facility] | | [address] | | | - LABORATORY | | [...] [address] | [place] | [phone] | | [facility] | | [address] | | | - LABORATORY | | [...] + | [facility] | [address] | [place] | [phone] | | [facility] | | [address] | | | - LABORATORY | | [...] [address] | [place] | [phone] | | [facility] | | [address] | | | - LABORATORY | | [...] ST. | [address] | [place] | [phone] | | [facility] | | [address] | | | - [...] (H) | 9 - 23 mg/dL | [facility] | | | | | | [facility] | | | | | | MEDICAL | | | | | | CENTER - | | | | | | LABORATORY | | + + + + + + | Creatinine | 7.26 (H) | 0.55 - 1.02 | [facility] | | | | | mg/dL | [facility] | | | | | | MEDICAL | | | | | | CENTER - | | | | | | LABORATORY | | + + + + + + | eGFR if not | 6 (L)Comment: GLOMERULAR | >=60 | [facility] | | | | FILTRATION | mL/min/1.73m2 | [facility] | | | [place] | RATE,ESTIMATED | | MEDICAL | | | | mL/min/1.57d1Oove than | | CENTER - | | [address] | [place] | [phone] | | [facility] | | [address] | | | - LABORATORY | | [...] + | [facility] | [address] | [place] | [phone] | | [facility] | | [address] | | | - LABORATORY | | [...] [address] | [place] | [phone] | | [facility] | | [address] | | | - LABORATORY | | [...] [address] | [place] | [phone] | | [facility] | | [address] | | | - LABORATORY | | [...] [address] | [place] | [phone] | | [facility] | | [address] | | | - LABORATORY | | [...] | this [facility] on | | | [...] Aurn Hodge MD | | Electronically signed: 05/21/2019 [...] PHYSICIAN: Gopi Muñoz MD PATIENT NAME: | [place] [facility] | | ARA CAMPOS GENDER: Mami [...] preparation was | | | performed by [employer] [facility] [id number] [facility] | | | [place] [address] and [place] [facility] [place] [address] [facility] | | | [place] [address]. Professional interpretation was performed | | | by [employer] [facility] - [facility] - [address] [facility] | | | [place] [address] (Instrument Mechanics Supervisor: Alen Simpson, | | | .; IA#:[id number]).8 Diagnostician: Darcie López M.S., | | | KEELY(ASC), [facility] Inventory Management Specialist Diagnostician: Alen Kearney | | | Calvin [...] [address] | [place] | [phone] | | [facility] | | [address] | | | - LABORATORY | | [...] [address] | [place] | [phone] | | [facility] | | [address] | | | - LABORATORY | | [...] [address] | [place] | [phone] | | [facility] | | [address] | | | - LABORATORY | | [...] [address] | [place] | [phone] | | [facility] | | [address] | | | - LABORATORY | | [...] | | | | | uIU/mL | [facility] | | | | | [...] + | [facility] | [address] | [place] | [phone] | | [facility] | | [address] | | | - LABORATORY | | [...] St | [place] | | | [facility] | | [address] | | | - BLOOD BANK | [...] | | | | | | [employer] | | | | | [...] ST. | [address] | [place] | [phone] | | [facility] | | [address] | | | - LABORATORY | | [...] [address] | [place] | [phone] | | [facility] | | [address] | | | - LABORATORY | | [...] [facility] | | | | | | [facility] | | | | | [...] + | [facility] | [address] | [place] | [phone] | | [facility] | | [address] | | | - LABORATORY | | [address] | [place] | [phone] | | [facility] | | [address] | | | - LABORATORY | | [...] ST. | [address] [address] | [place], [place] | [phone] | | [facility] | | [address] | | | - LABORATORY | | [...] 7.11 (H) | 0.55 - 1.02 | [facility] | | | | | mg/dL | [...] mL/min/1.73m2 | [facility] | | | [facility]ITIAN | RATE,ESTIMATED | | MEDICAL | | | | mL/min/1.08n7Kydk than | | CENTER - | | [...] [address] | [place] | [phone] | | [facility] | | [address] | | | - LABORATORY | | [...] [address] | [place] | [phone] | | [facility] | | [address] | | | - LABORATORY | | [...] ST. | [address] | [place], [place] | [phone] | | [facility] | | [address] | | | - LABORATORY | | [...] | | | | 60 Minutes, ONCE, [facility] 05/25/19 at | | | | | | | 0400, For 1 dose, Activate system | | | | | | | and mix before use., | | | | | | | Indications: Osteomyelitis | | | | | | + +---------+ +--------+-------+---+ +---+---+ | | | +---+---+ documented in this encounter
--- OUTSIDE RECORDS SUMMARY | ~2019-07-27 | XMS | Encounter Summary ---
Demographics + + + | Address | [address] | | | [place] [address] | + + + | Home Phone [...] + | Author | [facility] | | | and [place] | + + + | Organization | [facility] | | | and [place] | + + + | Address | Unknown | + + + | Phone | Unavailable | + + + Support + + + + + | Name | Relationship | Address | Phone | + + + + + | India Tilley | ECON | [address] | | | | | [place], [place] | | | | | [address] | | + + + + + | Yina La | ECON | Unknown | | + + + + + | Yina Peterson | ECON | Unknown | | + + + + + | Leatha Casillas | ECON | Unknown | | + + + + + Care Team Providers + +------+ + | Care Slab Polisher Name | Role | Phone | + +------+ + PCP | Unavailable | + +------+ + Reason for Visit + + + | Reason | Comments | + + + | Referral | [facility] | + + + Encounter Details +--------+ + + + + | Date | Type | Department | Care Team | Description | +--------+ + + + + | 05/26/ | Documentati | [facility] | Carlos Jansen, | Referral ([facility] | | 2019 | on | INFECTIOUS DISEASES | MD [address] | [facility] | | | | [address] | [place] [address] | [place]) | | | | [place] | [phone] | | | | | [address] | | | | | | [phone] | | | +--------+ + + + [...] 11:27 AM PDTReferral was received 05/18 from [facility] requesting to change ID docs from Dr Min to Dr Jansen per Dr Muñoz's reque st for patient's osteomyelitis. Patient saw Dr Jansen [facility] and upon d/c she was moved [...] home. I faxed back his note to [phone]. I did not enter a referral to avoid confusion with anna magaña current referral for [facility]. Will discard additional records in 30 days. documented in this encou nter Plan of Treatment Not on filedocumented as of this encounter Visit Diagnoses Not on filedocumented in this encounter"
--- OUTSIDE RECORDS SUMMARY | ~2019-07-27 | XMS | Encounter Summary ---
Demographics + + + | Address | [address] | | | [place] [address] | + + + | Home Phone [...] + | Author | [facility] | | | and [place] | + + + | Organization | [facility] | | | and [place] | + + + | Address | Unknown | + + + | Phone | Unavailable | + + + Support + + + + + | Name | Relationship | Address | Phone | + + + + + | India Tilley | ECON | [address] | | | | | [place], [place] | | | | | [address] | | + + + + + | Yina La | ECON | Unknown | | + + + + + | Yina Peterson | ECON | Unknown | | + + + + + | Leatha Casillas | ECON | Unknown | | + + + + + Care Team Providers + +------+ + | Care Nutrition Manager Name | Role | Phone | [...] | Surgery | kidney | DO [address] | [address] | | | | | disease, | [place], [place] | [address] | | | | | stage V | [address] | [place], | | | | | ([facility]) | [place] | [place] [address] | | | | | | [address] | Phone: | | | | | | Phone: | [phone] | | | | | | [phone] | Fax: | | | | | | Fax: | [phone] | | | | | | [phone] | | +--------+ + + + + + Encounter Details +--------+---------+ + + + | Date | Type | Department | Care Team | Description | +--------+---------+ + + + | 02/10/ | Office | [facility] | Santos Stephenson | Chronic kidney | | 2018 | Visit | SURGERY [address] | MD Kinga, FACS [address] | disease, stage V | | | | [place], [place] | [address] [facility] | (HCC) (Primary Dx); | | | | [address] | [facility] [place] [address] | Post-operative state | | | | [phone] | [phone] | | | | | | | [...] REPORT: PATIENT NAME : Estefani Tilley EQUIPMENT: Graphenics M-Turbo with 10-5 mHertz probe. INDICATIONS: S/P [...]
--- OUTSIDE RECORDS SUMMARY | ~2019-07-27 | XMS | Encounter Summary ---
Demographics + + + | Address | [address] | | | [place] [address] | + + + | Home Phone [...] | [facility] | | | and [place] | + + + | Organization | [facility] | | | and [place] | + + + | Address | Unknown | + + + | Phone | Unavailable | + + + Support + + + + + | Name | Relationship | Address | Phone | + + + + + | India Tilley | ECON | [address] | | | | | [place], [place] | | | | | [address] | | + + + + + | Yina La | ECON | Unknown | | + + + + + | Yina Peterson | ECON | Unknown | | + + + + + | Leatha Casillas | ECON | Unknown | | + + + + + Care Team Providers + +------+ + | Care Squeegee Finisher Name | Role | Phone | + +------+ + PCP | Unavailable | + +------+ + Encounter Details +--------+ + + + + | Date | Type | Department | Care Team | Description | +--------+ + + + + | 02/13/ | Hospital | [facility] | [facility], | | | 2007 - | Encounter | [facility] CTR [facility] | Venkatesh Forte MD [address] | | | | | [place] [address] | [facility] | | | 03/12/ | | [place] | [place] [address] | | | 2007 | | [address] | [phone] | | | | | [phone] | | | +--------+ + + + [...]
--- OUTSIDE RECORDS SUMMARY | ~2019-07-27 | XMS | Encounter Summary ---
Demographics + + + | Address | [address] | | | [place] [address] | + + + | Home Phone [...] | Author | [facility] | | | and [place] | + + + | Organization | [facility] | | | and [place] | + + + | Address | Unknown | + + + | Phone | Unavailable | + + + Support + + + + + | Name | Relationship | Address | Phone | + + + + + | India Tilley | ECON | [address] | | | | | [place], [place] | | | | | [address] | | + + + + + | Yina La | ECON | Unknown | | + + + + + | Yina Peterson | ECON | Unknown | | + + + + + | Leatha Casillas | ECON | Unknown | | + + + + + Care Team Providers + +------+ + | Care Structural Engineering Technician Name | Role | Phone | + +------+ + PCP | Unavailable | + +------+ + Encounter Details +--------+ + + + + | Date | Type | Department | Care Team | Description | +--------+ + + + + | 07/23/ | Hospital | [facility] | [place], | | | 2006 - | Encounter | MED CTR CANCER | Venkatesh Forte MD [address] | | | | | [place] [address] | [facility] | | | 08/12/ | | [place], [place] | [place] [address] | | | 2006 | | [address] | [phone] | | | | | [phone] | | | +--------+ + + + [...]
--- OUTSIDE RECORDS SUMMARY | ~2019-07-27 | XMS | Encounter Summary ---
Demographics + + + | Address | [address] | | | [place] [address] | + + + | Home Phone [...] + + | Author | [facility] | | | and [place] | + + + | Organization | [facility] | | | and [place] | + + + | Address | Unknown | + + + | Phone | Unavailable | + + + Support + + + + + | Name | Relationship | Address | Phone | + + + + + | India Tilley | ECON | [address] | | | | | [place], [place] | | | | | [address] | | + + + + + | Yina La | ECON | Unknown | | + + + + + | Yina Peterson | ECON | Unknown | | + + + + + | Leatha Casillas | ECON | Unknown | | + + + + + Care Team Providers + +------+ + | Care Pole Climber Name | Role | Phone | + [...] | stage renal | MD Phone: | [address] [place] [address] | | | | | disease) | | [place] | | | | | ([facility]) | | [address] | | | | | Procedures | Fax: | [place] | | | | | PA OFFICE | | [address] Phone: | | | | | OUTPATIENT | | [phone] | | | | | VISIT 25 | | Fax: | | | | | MINUTES | | [phone] | +--------+--------+ + + + + Encounter Details +--------+ + + + + | Date | Type | Department | Care Team | Description | +--------+ + + + + | 05/11/ | Off-Site | [facility] [place] | Gopi Muñoz | ESRD (end stage | | 2019 | Visit | NEPHROLOGY [address] | M, DO [address] | renal disease) on | | | | [address] | [place], [place] [address] | dialysis (HCC) | | | | [place] | [place] | (Primary Dx) | | | | [address] | [address] | | | | | [phone] | | | +--------+ + + + [...] Gopi Muñoz DO - 2019 12:00 PM [id number] sig javi by Gopi Muñoz DO at 2019 8:58 PM PDT documented in this encounter Progress Notes Gopi Muñoz DO - 2019 12:00 PM PDT Subjective: DIALYSIS NOTE Patient ID: Estefani Tilley is a 74 y.o. female. HPI Comments: I inadvertently missed Estefani on dialysis rounds at [facility] on 05/08/2019. 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 There has been a great deal of confusion about her outpatient antibiotics, and hypertension regimen, therefore, I asked her to my office today. Apparently she was discharged from [facility] on 03/31/2019 with acute low back pain, fluid collection and a diagnosis of T11-T12 verteb ral discitis/osteomyelitis. CT-guided aspiration/biopsy did not reveal an organism. Theref ore she was discharged on 03/31 on outpatient IV Vanco, 500 mg, Q. HD treatment MWF, and IV cefepime daily through 05/04/2019. I was called by the [facility] staff that there was concern w hether [...] she verball y agrees to go to [facility], [place], and picker tender the meds. (She does appear to a mbulate independently with only a cane for light assistance). PAST MEDICAL HISTORY: 1. ESRD 2 diabetic glomerulosclerosiswith the patient beginning Inpt HD in 018and then was DC to [facility] [place]. Unfortunat brandy, she has had intermittent [...] get her back to Dr. Jessie Jansen, [facility]. Will repeat one more ESR [...] to go to write a tonight to picker tender her meds and that she should take the first dose in each AM prior to dialysis as well. She was A&O x3 during this discussion. I think that she understands her risk of CV disease, and stroke if she does no t take her meds. 4. Will relay the above to the charge nurse at [facility], LISA Marshall by secure text. 5. My partner, Dr. Magui Moseley will check in on her in 2 weeks at [facility]. 6. Lastly she is concerned about breakthrough pain. I agreed to give her generic Vicodin 5 mg / 325 mg, 1 tab, Q 12 Hours, #40, no refill. 7. Also, Estefani and her family would like to explore whether the [place] or [facility] are could h elp transport her back and forth to the [facility] clinic for her treatments, thrice weekly. [place] states that financially this is becoming a hardship for her. Electronically signed by Gopi Muñoz DO. 05/11/19 11:02 CC: Blaine Jansen [place], [place], [facility] [place] [place] [facility], [place], [place]. document ed in this encounter Plan [...]
--- OUTSIDE RECORDS SUMMARY | ~2019-07-27 | XMS | Encounter Summary ---
Demographics + + + | Address | [address] | | | [place] [address] | + + + | Home Phone [...] Author | [facility] | | | and [place] | + + + | Organization | [facility] | | | and [place] | + + + | Address | Unknown | + + + | Phone | Unavailable | + + + Support + + + + + | Name | Relationship | Address | Phone | + + + + + | India Tilley | ECON | [address] | | | | | [place], [place] | | | | | [address] | | + + + + + | Yina La | ECON | Unknown | | + + + + + | Yina Peterson | ECON | Unknown | | + + + + + | Leatha Casillas | ECON | Unknown | | + + + + + Care Team Providers + +------+ + | Care Freight Hustler Name | Role | Phone | + [...] + + | 02/04/ | Telephone | [facility] | Santos Stephenson | Post Op (dialysis | | 2017 | | SURGERY [address] | MD Kinga, FACS [address] | catheter fell out. ) | | | | [place], [place] | [address] [facility] | | | | | [address] | [place] [address] | | | | | [phone] | [phone] | | | | | | | [...]
--- OUTSIDE RECORDS SUMMARY | ~2019-07-27 | XMS | Encounter Summary ---
Demographics + + + | Address | [address] | | | [place] [address] | + + + | Home Phone [...] + | Author | [facility] | | | and [place] | + + + | Organization | [facility] | | | and [place] | + + + | Address | Unknown | + + + | Phone | Unavailable | + + + Support + + + + + | Name | Relationship | Address | Phone | + + + + + | India Tilley | ECON | [address] | | | | | [place], [place] | | | | | [address] | | + + + + + | Yina La | ECON | Unknown | | + + + + + | Yina Peterson | ECON | Unknown | | + + + + + | Leatha Casillas | ECON | Unknown | | + + + + + Care Team Providers + +------+ + | Care Sole Stainer Name | Role | Phone | + [...] 2019 | | [address] | Chief Of Production | intervertebral disc | | | | [place] | | (pyogenic), thoracic | | | | [address] | | region ([facility]); | | | | [phone] | | Osteomyelitis of | | | | | | thoracic vertebra | | | | | | ([facility]) | +--------+ + + + [...] section. | | | | | region ([facility]) | | | | [...] section. | | | | | region ([facility]) | | | | [...] | | [facility] | | | | Blvd;[place] [address] | | LABORATORY | | + + + + + + + + | Specimen | + + | Blood | + + + + + + + | Performing | Address | City/State/Zipcode | Phone Number | | Organization | | | | + + + + + | REFERENCE LAB | [address] [place] [address] | [place] [address] | [phone] | | [facility] | Blvd[address] | | | | LABORATORY | | | | + + + + + | REFERENCE LAB | [address] [place] [address] | [place] [address] | | | [facility] | Blvd[address] | [...] REFERENCE | | | | performed at [facility];[address] | | LAB | | | | [place] | | [facility] | | | | [address];[place] [address] | | LABORATORY | | + + + + + + + + | Specimen | + + | Blood | + + + + + + + | Performing | Address | City/State/Zipcode | Phone Number | | Organization | | | | + + + + + | REFERENCE LAB | [address] [place] [address] [facility] | [place] [address] | [phone] | | [facility] | Blvd[address] | | | | LABORATORY | | | | + + + + + | REFERENCE LAB | [facility] | [place] [address] | | | [facility] | Blvd[address] | [...]
--- OUTSIDE RECORDS SUMMARY | ~2019-07-27 | XMS | Encounter Summary ---
Demographics + + + | Address | [address] | | | [place] [address] | + + + | Home Phone [...] | [facility] | | | and [place] | + + + | Organization | [facility] | | | and [place] | + + + | Address | Unknown | + + + | Phone | Unavailable | + + + Support + + + + + | Name | Relationship | Address | Phone | + + + + + | India Tilley | ECON | [address] | | | | | [place], [place] | | | | | [address] | | + + + + + | Yina La | ECON | Unknown | | + + + + + | Yina Peterson | ECON | Unknown | | + + + + + | Leatha Casillas | ECON | Unknown | | + + + + + Care Team Providers + +------+ + | Care Small Business Director Name | Role | Phone | + +------+ + PCP | Unavailable | + +------+ + Encounter Details +--------+ + + + + | Date | Type | Department | Care Team | Description | +--------+ + + + + | 06/23/ | Hospital | [facility] | [place], | | | 2006 - | Encounter | MED CTR CANCER | Venkatesh Forte MD [address] | | | | | [place] [address] | [facility] | | | 07/13/ | | [place] | [place] [address] | | | 2006 | | [address] | [phone] | | | | | [phone] | | | +--------+ + + + [...]
--- OUTSIDE RECORDS SUMMARY | ~2019-07-27 | XMS | Encounter Summary ---
Demographics + + + | Address | [address] | | | [place] [address] | + + + | Home Phone [...] + | Author | [facility] | | | and [place] | + + + | Organization | [facility] | | | and [place] | + + + | Address | Unknown | + + + | Phone | Unavailable | + + + Support + + + + + | Name | Relationship | Address | Phone | + + + + + | India Tilley | ECON | [address] | | | | | [place], [place] | | | | | [address] | | + + + + + | Yina La | ECON | Unknown | | + + + + + | Yina Peterson | ECON | Unknown | | + + + + + | Leatha Casillas | ECON | Unknown | | + + + + + Care Team Providers + +------+ + | Care System Specialist Name | Role | Phone | + +------+ + PCP | Unavailable | + +------+ + Reason for Visit +---------+ + | Reason | Comments | +---------+ + | Waste Water Or Water Plant Operator | | +---------+ + Encounter Details +--------+ + + + + | Date | Type | Department | Care Team | Description | +--------+ + + + + | 12/12/ | Telephone | [facility] | Scott Koroma, | Waste Water Or Water Plant Operator | | 2018 | | ORTHOPEDIC SURGERY | [address] [facility] | | | | | [address] [facility] | [place] | | | | | [place] | [address] | | | | | [address] | | | | | | [phone] | | | +--------+ + + + [...]
--- OUTSIDE RECORDS SUMMARY | ~2019-07-27 | XMS | Encounter Summary ---
Demographics + + + | Address | [address] | | | [place] [address] | + + + | Home Phone [...] Author | [facility] | | | and [place] | + + + | Organization | [facility] | | | and [place] | + + + | Address | Unknown | + + + | Phone | Unavailable | + + + Support + + + + + | Name | Relationship | Address | Phone | + + + + + | India Tilley | ECON | [address] | | | | | [place], [place] | | | | | [address] | | + + + + + | Yina La | ECON | Unknown | | + + + + + | Yina Peterson | ECON | Unknown | | + + + + + | Leatha Casillas | ECON | Unknown | | + + + + + Care Team Providers + +------+ + | Care Ring Spinner Name | Role | Phone | + +------+ + PCP | Unavailable | + +------+ + Encounter Details +--------+ + + + + | Date | Type | Department | Care Team | Description | +--------+ + + + + | 07/26/ | Hospital | [facility] | Anna Banegas MD | Unspecified Backache | | 2006 | Encounter | [address] | [address] | | | | | [address] | [place], [place] | | | | | [place], [place] | [address] | | | | | [address] | | | | | | [phone] | | | +--------+ + + + [...]
--- OUTSIDE RECORDS SUMMARY | ~2019-07-27 | XMS | Encounter Summary ---
Demographics + + + | Address | [address] | | | [place] [address] | + + + | Home Phone [...] | Author | [facility] | | | and [place] | + + + | Organization | [facility] [...] [place], [place] | | | | | [address] | | + + + + + | Yina La | ECON | Unknown | | + + + + + | Yina Peterson | ECON | Unknown | | + + + + + | Leatha Casillas | ECON | Unknown | | + + + + + Care Team Providers + +------+ + | Care Elementary Education Tutor Name | Role | Phone | + +------+ + PCP | Unavailable | + +------+ + Encounter Details +--------+ + + + + | Date | Type | Department | Care Team | Description | +--------+ + + + + | 11/08/ | Imaging | [facility] | Provider, | | | 2018 | Exam | MED CTR EXTERNAL | MD [address] | | | | | IMAGING | [address] | | | | | [phone] | [place] [address] | | +--------+ + + + + [...] for comparison only - no result from [place]. | [facility] | + + + + +---------+ + + | Performing | Address | City/State/Zipcode | Phone Number | | Organization | | | | + +---------+ + + | [facility] | | | | + +---------+ + + documented in this encounter Visit Diagnoses Not on filedocumented in this encounter"
--- OUTSIDE RECORDS SUMMARY | ~2019-07-27 | XMS | Encounter Summary ---
Demographics + + + | Address | [address] | | | [place] [address] | + + + | Home Phone [...] | [facility] | | | and [place] | + + + | Organization | [facility] | | | and [place] | + + + | Address | Unknown | + + + | Phone | Unavailable | + + + Support + + + + + | Name | Relationship | Address | Phone | + + + + + | India Tilley | ECON | [address] | | | | | [place], [place] | | | | | [address] | | + + + + + | Yina La | ECON | Unknown | | + + + + + | Yina Peterson | ECON | Unknown | | + + + + + | Leatha Casillas | ECON | Unknown | | + + + + + Care Team Providers + +------+ + | Care Electric Needle Specialist Name | Role | Phone | [...] | Surgery | kidney | DO [address] | [address] | | | | | disease, | [place], [place] | [address] | | | | | stage V | [address] | [place], | | | | | ([facility]) | [place] | [place] [address] | | | | | | [address] | Phone: | | | | | | Phone: | [phone] | | | | | | [phone] | Fax: | | | | | | Fax: | [phone] | | | | | | [phone] | | +--------+ + + + + + Encounter Details +--------+---------+ + + + | Date | Type | Department | Care Team | Description | +--------+---------+ + + + | 03/10/ | Office | [facility] | Santos Stephenson | Chronic kidney | | 2018 | Visit | SURGERY [address] | MD Kinga, FACS [address] | disease, stage V | | | | [place], [place] | [address] [facility] | (HCC) (Primary Dx); | | | | [address] | [place] [address] | Post-operative state | | | | [phone] | [phone] | | | | | | | [...] She has been going to dialysis in [place], [place] , states things are going well. [...] REPORT: PATIENT NAME : Estefani Tilley EQUIPMENT: Gigantt-Pikumo with 10-5 mHertz probe. INDICATIONS: S/P Right [...] RIGHT IJ catheter. Patient to follow with shirt trimmer and primary care. I will be available [...]
--- OUTSIDE RECORDS SUMMARY | ~2019-07-27 | XMS | Encounter Summary ---
Demographics + + + | Address | [address] | | | [place] [address] | + + + | Home Phone [...] + | Author | [facility] | | | and [place] | + + + | Organization | [facility] | | | and [place] | + + + | Address | Unknown | + + + | Phone | Unavailable | + + + Support + + + + + | Name | Relationship | Address | Phone | + + + + + | India Tilley | ECON | [id number] | | | | | [place], [place] | | | | | [address] | | + + + + + | Yina La | ECON | Unknown | | + + + + + | Yina Peterson | ECON | Unknown | | + + + + + | Leatha Casillas | ECON | Unknown | | + + + + + Care Team Providers + +------+ + | Care It Security Project Manager Name | Role | Phone | + +------+ + PCP | Unavailable | + +------+ + Encounter Details +--------+ + + + + | Date | Type | Department | Care Team | Description | +--------+ + + + + | 09/23/ | Hospital | [facility] | | | | 2006 - | Encounter | [facility] | | | | | | CENTER [facility] | | | | 10/13/ | | [place] | | | | 2006 | | [address] | | | | | | [phone] | | | +--------+ + + + [...]
--- OUTSIDE RECORDS SUMMARY | ~2019-07-27 | XMS | Encounter Summary ---
Demographics + + + | Address | [address] | | | [place] [address] | + + + | Home Phone [...] Author | [facility] | | | and [place] | + + + | Organization | [facility] | | | and [place] | + + + | Address | Unknown | + + + | Phone | Unavailable | + + + Support + + + + + | Name | Relationship | Address | Phone | + + + + + | India Tilley | ECON | [id number] | | | | | [place], [place] | | | | | [address] | | + + + + + | Yina La | ECON | Unknown | | + + + + + | Yina Peterson | ECON | Unknown | | + + + + + | Leatha Casillas | ECON | Unknown | | + + + + + Care Team Providers + +------+ + | Care Director Integrated Name | Role | Phone | [...] + + | 10/06/ | Telephone | [facility] | Gopi Muñoz | Nephrology | | 2018 | | NEPHROLOGY [address] | M, DO [address] | Appointment | | | | [address] | [place] | | | | | [place], [place] | [place] | | | | | [address] | [address] | | | | | [phone] | | | +--------+ + + + [...]
--- OUTSIDE RECORDS SUMMARY | ~2019-07-27 | XMS | Encounter Summary ---
Demographics + + + | Address | [address] | | | [place] [address] | + + + | Home Phone [...] Author | [facility] | | | and [place] | + + + | Organization | [facility] | | | and [place] | + + + | Address | Unknown | + + + | Phone | Unavailable | + + + Support + + + + + | Name | Relationship | Address | Phone | + + + + + | India Tilley | ECON | [phone] | | | | | [place], [place] | | | | | [address] | | + + + + + | Yina La | ECON | Unknown | | + + + + + | Yina Peterson | ECON | Unknown | | + + + + + | Leatha Casillas | ECON | Unknown | | + + + + + Care Team Providers + +------+ + | Care Occasional Caregiver Name | Role | Phone | + [...] + | 01/03/ | Telephone | [facility] | Santos Stephenson | Surgery Appointment | | 2018 | | SURGERY [address] | MD [place], FACS [address] | | | | | [address] [place], [place] | [address] [facility] | | | | | [address] | [place] [address] | | | | | [phone] | [phone] | | | | | | | [...]
--- OUTSIDE RECORDS SUMMARY | ~2019-07-27 | XMS | Encounter Summary ---
Demographics + + + | Address | [address] | | | [place] [address] | + + + | Home Phone [...] Author | [facility] | | | and [place] | + + + | Organization | [facility] | | | and [place] | + + + | Address | Unknown | + + + | Phone | Unavailable | + + + Support + + + + + | Name | Relationship | Address | Phone | + + + + + | India Tilley | ECON | [id number] | | | | | [place], [place] | | | | | [address] | | + + + + + | Yina La | ECON | Unknown | | + + + + + | Yina Peterson | ECON | Unknown | | + + + + + | Leatha Casillas | ECON | Unknown | | + + + + + Care Team Providers + +------+ + | Care Sensor Specialist Name | Role | Phone | [...] + + | 02/04/ | Telephone | [facility] | Santos Stephenson | Post Op (dialysis | | 2017 | | SURGERY [address] | MD [place], [address] | catheter fell out. ) | | | | [place], [place] | [address] [facility] | | | | | [address] | [place] [address] | | | | | [phone] | [phone] | | | | | | | [...]
--- OUTSIDE RECORDS SUMMARY | ~2019-07-27 | XMS | Encounter Summary ---
Demographics + + + | Address | [address] | | | [place] [address] | + + + | Home Phone [...] Author | [facility] | | | and Kamaljitana | + + + | Organization | [facility] | | | and [place] | + + + | Address | Unknown | + + + | Phone | Unavailable | + + + Support + + + + + | Name | Relationship | Address | Phone | + + + + + | India Tilley | ECON | [id number] | | | | | [place], [place] | | | | | [address] | | + + + + + | Yina La | ECON | Unknown | | + + + + + | Yina Peterson | ECON | Unknown | | + + + + + | Leatha Casillas | ECON | Unknown | | + + + + + Care Team Providers + +------+ + | Care Traffic Sign Supervisor Name | Role | Phone | [...] | | | | | site, | [place], [place] | TABITHA, [place]KTORI[place] | | | | | unspecified | [address] | [address] | | | | | type ([facility]) | Phone: | Phone: | | | | | | [phone] | [phone] | | | | | | Fax: | Fax: | | | | | | [phone] | [phone] | + + + + + + [...] + + | 03/24/ | Hospital | [facility] | Erlinda Simon, | Osteomyelitis, | | 2019 - | Encounter | [facility] | MD [address] | unspecified site, | | | | NEPHROLOGY [address], [address] | unspecified type | | 03/31/ | | [address] [place], [place] | [place] [address] | ([facility]) (Primary Dx); | | 2019 | | [address] | [phone] | Discitis of thoracic | | | | [phone] | | region; Other | | | | | Katey Hill MD | secondary | | | | | [address] | osteoarthritis of | | | | | [address]FE[address], | multiple sites; [place] | | | | | [place] [address] | (end stage renal | | | | | [phone] | disease) on dialysis | | | | | | ([facility]); Essential | | | | | Michelle Lopze, | hypertension; ESRD | | | | | DO [address] | (end stage renal | | | | | [address], | disease) ([facility]); Type | | | | | [place] [address] | 2 diabetes mellitus | | | | | [phone] | with stage 4 | | | | | | chronic kidney | | | | | | disease, with | | | | | | long-term current | | | | | | use of insulin ([facility]) | +--------+ + + + [...] completion of IV abx Follow Up Appointments: [facility] [address] [facility] [address] [facility] [address] [place] [id number] [facility] [address] [facility] [address] Discharge Disposition: Home with Home Health Consultants This Admission: ID, Nephrology Hospital Course: 73-year-old female with history of ESRD on hemodialysis, hypertension, type 2 diabetes, hyp othyroidism, chronic anemia, hyperlipidemia with a history of stroke transferred [facility] for evaluation of T11-T12 lesion noted on [...] to go to SNF ([facility] in [place], [place] - of which has accepted her [...] dialysis days after dialysis Osteomyelitis/Discitis of T11, [id number] -MRI spine 03/23/19: "mild paravertebral soft tissue [...] dialysis patient - has OP clinic in [place] already Macrocytic anemia likely secondary to-likely anemia [...] Value Units Date/Time Culture, Aerobic + Anaerobic [[id number]] Collected: 03/24/191513 Order Status: Completed Lab Status: Final result Updated: 03/29/19717 Specimen: Body Fluid from Vertebrae, Thoracic FINAL REPORT -- No Growth No anaerobes isolated Gram Stain Few Neutrophils No squamous epithelial cells seen No organisms seen Comment: Performed by [facility] [address] [place] [address] Gram Stain [[id number]] Collected: 03/24/191513 Order Status: Canceled Lab Status: No result Updated: 03/24/19 1515 Specimen: Body Fluid from Vertebrae, Thoracic Culture, AFB Smear [[id number]] Collected: 03/24/19 1514 Order Status: Completed Lab Status: Preliminary result Updated: 03/25/19 1054 Specimen: Body Fluid from Vertebrae, Thoracic AFB Smear Result No Acid Fast Bacilli Seen Comment: Performed by [facility] [address] [place] [address] Culture, Fungus, Smear [[id number]] Collected: 03/24/19 1514 Order Status: Completed Lab Status: Preliminary result Updated: 03/25/19 1039 Specimen: Body Fluid from Vertebrae, Thoracic CALCOFLUOR No fungal elements seen Comment: Performed by [facility] [address] [place] [address] [address] Culture, Blood [[id number]] Collected: 03/23/19 2333 Order Status: Completed Lab Status: Final result Updated: 03/28/19 2352 Specimen: Blood Culture No growth after 5 days incubation. Culture, Blood [[id number]] Collected: 03/23/19 2255 Order Status: Completed Lab [...] this chart may have been created with Dr. Tariff voice recognition software. Occasi onal wrong-word or [...] | | | | ([facility]), Right hip | | | [...] 03/31/2019 5:42 PM PDTPatient left with family, [place] supplies and i nstructions received before discharge and RX's filled at outpt pharmacy. VSS, ambulating wit h SBA, A&O x4, accepting of discharge. Dialysis completed this AM. Pain controlled with q4 o xy, LD 1400. Home health will f/u tomorrow. AVS reviewed and sent with patient, verbalized u nderstanding. Merry Hess, CUSTOM PROTECTION OFFICER - 03/31/2019 11:05 AM PDTSOCIAL WORK PLAN: Home with [facility] NEXT STEPS: 1. Pt to follow up with [facility] 2. [facility] to follow up with [place] at [place] INTERVENTION: SW spoke with [facility], pt has a $2.50 out of pocket cost weekly, pt is agreeable to pay for this. Therefore pt will dc today with [facility]. ROBIN provided [facility] with hard script for IV abx. ROBIN faxed over HH order to [facility], ROBIN faxed over IV vanco script to [facility]. [facility] notified of pt's dc home. notified. [facility] to meet with pt later this afternoon for teach. SW provided pt with 3 gas cards to assist with transportation. No further dc needs identified. SW received call from [facility] clinic that they cannot provide IV Vanco as Vanco h as not been consigned by Process Manager that has privileges in [place]. IV Vanco will now be done b y Candie, [employer] faxed over hard script to Candie. They will have both IV Abx ready and will teach pt shortly. No further dc needs identified. CONTACTS: Yina La: sister India Tilley: sister [place] Transportation: [place] Medicaid Transportation fax: [phone] [facility]: [phone] fax: [phone] [facility] [phone] [facility]: [phone] [facility]: [phone] [facility] FAX: [phone] aMichelle bell DO - 03/31/2019 10:12 AM PDT Patient: Estefani Tilley Date of : 1945 Admit Date: 03/24/2019 Date of Service: 03/31/2019 PCP: Francisca Womack PA-C Hospital Day: Hospital Day: 8 Hospital Course: 73-year-old female with history of ESRD on hemodialysis, hypertension, type 2 diabetes, hyp othyroidism, chronic anemia, hyperlipidemia with a history of stroke transferred from [facility] for evaluation of T11-T12 lesion noted on [...] had planned to go to SNF ([facility] [place] [place] - of which has accepted her and [...] dialysis patient - has OP clinic in [place] already Macrocytic anemia likely secondary to-likely anemia [...] hoping to arrange home IV antibiotics through [facility]. Awaiting to see if insurance will cover [...] - 99 mg/dL Final Comment: Performed by [facility] [address] [place] [address] 03/30/2019 21:14 200 (H) 65 - 99 mg/dL Final Comment: Performed by [facility] [address] [place] [address] 03/30/2019 17:46 111 (H) 65 - 99 mg/dL Final Comment: Performed by [facility] [address] [place] [address] 12/09/2018 18:05 113 (H) 70 - 109 [...] this chart may have been created with Dr. Tariff voice recognition software. Occasi onal wrong-word or sound-alike substitutions may have occurred due to the inherent mckeon itations of voice recognition software. Please read the chart carefully and recognize, using context, where these substitutions have occurred Jesus Wade MD - 03/31/2019 8:26 AM PDT . Infectious Diseases Progress Note Pt. Name/Age/: Estefani Tony Tilley 73 y.o. 1945 Med. Record Number: [id number] Date of admission: 03/24/2019 Patient admitted with [...] Electronically signed by: Jesus Whitney, 03/31/2019 8:26 [facility] Robb Phillips PharmD - 03/31/2019 7:25 AM [...] - 03/30/2019 9:45 PM PDT [facility] Date of Service: 03/30/2019 Rounding Physician: Randy Corrigan MD Patient Name: Estefani Tilley : 1945 Medical Record: [id number] Hospital Summary: Estefani Tilley is a 73 [...] Trace Corrigan MD, 03/30/2019, 21:45 etNan wilkes, CUSTOM PROTECTION OFFICER - 03/30/2019 2:34 PM PDT SOCIAL WORK D/C PLAN:DC home with [facility] providing IV-ABX and [facility] providing picc care and lab draws vs [facility] NEXT STEPS: -SW will need to follow up with CANDIE regarding providing IV-ABX to pt. -SW will need to follow up with [facility] regarding providing picc care and lab draws. -SW will need to follow up with [facility] regarding having pt receive vanco do [...] INTERVENTION:SW spoke with pt regarding acceptance to [facility]. Pt is now wanting to go home with IV-ABX. SW spoke with [facility]. They go out to [place], [place] and have openings for nursing care. Referral faxed to [facility]. Pt is amenable to using [facility] for IV-ABX. SW spoke with CANDIE martinez who will run pt's be nefits to see if she can DC home with IV-ABX. Pt states that [facility] can provide teach to her son to help administer IV-ABX. SW left message for [facility] to see if they can provide vanco dose to pt at [facility] on Wednesday, Wednesday and Wednesday if pt is able to go home. Pt states that she does dialysis on Wednesday, Wednesday and Wednesday from 12:00-4:00. SW received phone call from [facility]. They have accepted pt for admission if [...] if pt is going to go to [facility]. ASSESSMENT/CHART REVIEW:73 yr old femalewith a history of ESRD on hemodialysis, hypertens ion, type 2 diabetes, hypothyroidism,chronic anemia,hyperlipidemia, hx of stroke [facility] noted on MRI concerning fo r osteomyelitis. SW met with pt's sister, Yina, and her cousin, Keri, who were waiting in pt's room while s he was in dialysis. SW will need to follow up with pt re: d/c planning. Pt's sister and cousin related that pt mostly lives at Yina's house outside [place], [place], but does not like to be tied down because she enjoys attending [place] festivals and many events. She does at [facility] weekly. Pt has a vehicle and is very independent. D/C TRANSPORT:Pt can be transported home or to [facility] via family in a private car. They will need gas cards to help pay for transportation. BARRIERS TO D/C:none CONTACTS: Yina La: sister India Tilley: sister [place] Transportation: [place] Transportation fax: [phone] [facility]: [phone] fax: [phone] [facility] [phone] [facility]: [phone] [facility]: [phone] [facility] FAX: [phone] Nan Cheney MSW - 03/30/2019 12:57 PM PDTSOCIAL WORK D/C PLAN:[facility]: [facility] NEXT STEPS:Await bed availability INTERVENTION: ROBIN called and left message for Mell at [facility] regarding if they are willing to accept pt and to discuss transportation to and from dialysis. SW also called and left message for [place] Medicaid transportation regarding if they can transp ort pt to and from dialysis upon DC. Pt states that she goes to [facility] dialys is in [place], [place] on Wed, Wed, and Fridays from 12:00-4:00 pm. SW left message with [facility] dialysis regarding if there was any way that they may also be able to help with transportation to and from dialysis while pt is in rehab and to ensure that pt still has her chair time scheduled. [facility] is only open M on, Wednesday and Wednesday. ASSESSMENT/CHART REVIEW:73 yr old femalewith a history of ESRD on hemodialysis, hypertens ion, type 2 diabetes, hypothyroidism,chronic anemia,hyperlipidemia, hx of stroke transfe rred from [facility] evaluation of T11-T12 lesion noted on MRI concerning fo r osteomyelitis. SW met with pt's sister, Yina, and her cousin, Keri, who were waiting in pt's room while s he was in dialysis. SW will need to follow up with pt re: d/c planning. Pt's sister and cousin related that pt mostly lives at Yina's house outside [place], [place], but does not like to be tied down because she enjoys attending [place] festivals and many events. She does at [facility] dialysis weekly. Pt has a vehicle and is very independent. D/C TRANSPORT:tbd BARRIERS TO D/C:none CONTACTS: Yina La: sister India Tilley: sister [place] Transportation: [place] Transportation fax: [phone] [facility]: [phone] fax: [phone] [facility] [phone] [facility]: [phone] signed by JENNIFER Xavier at 03/30 1:09 [...] with a history of stroke transferred from [facility] for evaluation of T11-T12 lesion noted on [...] dialysis patient - has OP clinic in [place] already ---> will need SW to help [...] SNF - awaiting to hear back from [facility], in [place], [place] regarding possible acceptance there. Medically ready [...] Single Lumen 03/24/19 2143 Left Lateral Forearm lwkz-iaw-dvtvkq daniel ter system 20 gauge;1 1/4 in [...] - 99 mg/dL Final Comment: Performed by [facility] [address] [place] [address] 03/29/2019 21:09 157 (H) 65 - 99 mg/dL Final Comment: Performed by [facility] [address] [place] [address] 03/29/2019 18:50 91 65 - 99 mg/dL Final Comment: Performed by [facility] [address] [place] [address] 12/09/2018 18:05 113 (H) 70 - 109 [...] this chart may have been created with Dr. Tariff voice recognition software. Occasi onal wrong-word or sound-alike substitutions may have occurred due to the inherent mckeon itations of voice recognition software. Please read the chart carefully and recognize, using context, where these substitutions have occurred esus Whitney MD - 03/30/2019 7:15 AM PDT . Infectious Diseases Progress Note Pt. Name/Age/: Estefani Jimenez Jarek 73 y.o. 1945 Med. Record Number: [id number] Date of admission: 03/24/2019 Patient admitted with [...] Electronically signed by: Jesus Whitney, 03/30/2019 7:15 [facility] Mary Wade RN - 03/30/2019 6:16 AM [...] depression wishful of Monitoring Requirements [facility] Suicide Policy [facility] Suicide Risk/Telesitter Screening Utilizing this [...] 03/29/2019 4:18 PM PDTSOCIAL WORK D/C PLAN:SNF: [facility] NEXT STEPS:Await bed availability INTERVENTION: SW called [...] anemia,hyperlipidemia, hx of stroke [facility] noted on MRI concerning fo r osteomyelitis. SW met with pt's sister, Yina, and her cousin, Keri, who were waiting in pt's room while s he was in dialysis. SW will need to follow up with pt re: d/c planning. Pt's sister and cousin related that pt mostly lives at Yina's house outside [place], [place], but does not like to be tied down because she enjoys attending [place] festivals and many events. She does at [facility] weekly. Pt has a vehicle and is very independent. D/C TRANSPORT:tbd BARRIERS TO D/C:none CONTACTS: Yina La: sister India Tilley: sister [place] Medicaid Transportation: [facility]: [phone] fax: [phone] [facility] [phone] signed by JENNIFER Contreras at 03/29/2019 4:20 PM PDTHsu, Randy Nunez MD - 03/29/2019 12:32 PM PDT [facility] Date of Service: 03/29/2019 Rounding Physician: Randy Corrigan MD Patient Name: Estefani Tilley : 1945 Medical Record: [id number] Hospital Summary: Estefani Tilley is a 73 [...] DO - 03/29/2019 12:12 PM PDT Patient: Esteafni Tilley Date of : 1945 Admit Date: 03/24/2019 Date of Service: 03/29/2019 PCP: Francisca Womack PA-C Hospital Day: Hospital Day: 6 Hospital Course: 73-year-old female with history of ESRD on hemodialysis, hypertension, type 2 diabetes, hyp othyroidism, chronic anemia, hyperlipidemia with a history of stroke transferred from [facility] for evaluation of T11-T12 lesion noted on [...] [facility] as well. SW to [...] dialysis patient - has OP clinic in [place] already ---> will need SW to help [...] SNF - awaiting to hear back from [facility], in [place], [place] regarding possible acceptance there. Could possibly [...] Single Lumen 03/24/19 2143 Left Lateral Forearm wjod-ilb-xmwudp daniel ter system 20 gauge;1 /4 in [...] - 99 mg/dL Final Comment: Performed by [facility] [address] [place] [address] 03/28/2019 21:06 144 (H) 65 - 99 mg/dL Final Comment: Performed by [facility] [address] [place] [address] 03/28/2019 11:22 119 (H) 65 - 99 mg/dL Final Comment: Performed by [facility] [address] [place] [address] 12/09/2018 18:05 113 (H) 70 - 109 [...] this chart may have been created with Dr. Tariff voice recognition software. Occasi onal wrong-word or [...] Jarek 73 y.o. 1945 Med. Record Number: [id number] Date of admission: 03/24/2019 Patient admitted with [...] Electronically signed by: Jesus Whitney, 03/29/2019 7:35 [facility] zech, Carolina Restrepo RN - 03/28/2019 7:08 PM [id number] - Report called to Sanjuanita GONZALEZ. Pt's belongings . I pad and I phone w/ chargers as well as pt's purse, and shoes, and shirt and pants all sent with her to [address] [place] [address]. Pt had been sitting up eating dinner. [...] for time spent with her. Noti fied [address] [place] [address] RN of pt's recent loss. Transferred at [...] with a history of stroke transferred from [facility] for evaluation of T11-T12 lesion noted on [...] Single Lumen 03/24/19 2143 Left Lateral Forearm hlem-rtv-nhzzzm daniel ter system 20 gauge;1 / in [...] - 99 mg/dL Final Comment: Performed by [facility] [address] [place] [address] 03/28/2019 07:09 75 65 - 99 mg/dL Final Comment: Performed by [facility] [address] [place] [address] 03/27/2019 20:38 109 (H) 65 - 99 mg/dL Final Comment: Performed by [facility] [place] [address] [place] [address] 12/09/2018 18:05 113 (H) 70 - 109 [...] this chart may have been created with Dr. Tariff voice recognition software. Occasi onal wrong-word or sound-alike substitutions may have occurred due to the inherent mckeon itations of voice recognition software. Please read the chart carefully and recognize, using context, where these substitutions have occurred Cordell Mcgarry LICSW - 03/28/2019 2:57 PM PDTSOCIAL WORK D/C PLAN: SNF: [facility] NEXT STEPS: Await bed availability INTERVENTION: On-going dc planning. Rec'd update from [facility]. They confirm they have r ec'd clinical notes and are currently reviewing. SW will follow. ASSESSMENT/CHART REVIEW:73 yr old femalewith a history of ESRD on hemodialysis, hypertens ion, type 2 diabetes, hypothyroidism,chronic anemia,hyperlipidemia, hx of stroke [facility] noted on MRI concerning fo r osteomyelitis. SW met with pt's sister, Yina, and her cousin, Keri, who were waiting in pt's room while s he was in dialysis. SW will need to follow up with pt re: d/c planning. Pt's sister and co in related that pt mostly lives at Yina's house outside [place], [place], but does not like to be tied down because she enjoys attending [place] festivals and many events. She does atten d dialysis weekly. Pt has a vehicle and is very independent. D/C TRANSPORT: tbd BARRIERS TO D/C: none CONTACTS: Yina La: sister India Tilley: sister [facility]: [phone] fax: [phone] [facility] [phone] Mario Alberto Gonzales MD - 03/28/2019 7:34 AM PDTFormatting of this note might be different from the maynor rollins Infectious Diseases Progress Note Pt. Name/Age/: Estefani Tilley 73 y.o. 1945 Med. Record Number: [id number] Date of admission: 03/24/2019 Patient admitted with [...] Electronically signed by: Carlos Jansen, 03/28/2019 7:34 [facility] Katey Solis MD - 03/27/2019 8:58 PM PDT Patient: Estefani Tilley Date of : 1945 Admit Date: 03/24/2019 Date of Service: 03/27/2019 PCP: Francisca Womack PA-C Hospital Day: Hospital Day: 4 Hospital Course: 73-year-old female with history of ESRD on hemodialysis, hypertension, type 2 diabetes, hyp othyroidism, chronic anemia, hyperlipidemia with a history of stroke transferred from [facility] for evaluation of T11-T12 lesion noted on MRI concerning for osteomyeliti s. Infectious disease consulted. Status post aspiration from her thoracic spine, Gram stain negative, cultures pending. Rosemary ent started on empiric vancomycin and cefepime. Will need 6 weeks of IV antibiotics. 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 Nephrology following for maintenance [...] Single Lumen 03/24/19 2143 Left Lateral Forearm ulsj-kfp-lsvbkf daniel ter system 20 gauge;1 1/4 in [...] - 99 mg/dL Final Comment: Performed by [facility] [address] [place] [address] 03/27/2019 13:58 82 65 - 99 mg/dL Final Comment: Performed by [facility] [address] [place] [address] 03/27/2019 06:39 83 65 - 99 mg/dL Final Comment: Performed by [facility] [address] [facility] [place] [address] 12/09/2018 18:05 113 (H) 70 - 109 [...] this chart may have been created with Dr. Tariff voice recognition software. Occasi onal wrong-word or sound-alike substitutions may have occurred due to the inherent mckeon itations of voice recognition software. Please read the chart carefully and recognize, using context, where these substitutions have occurred Darlin Mcgarry LICSW - 03/27/2019 3:17 PM PDTSOCIAL WORK D/C PLAN: SNF: [facility] NEXT STEPS: Await bed availability INTERVENTION: Rec'd call from Emili at [facility]. She states the contracted f acility near pt's home is [facility]. Spoke with pt and with sister India. Referral and (-) Pasrr sent to [facility]. Copy of Pasrr placed in light chart with request to file into jos rds. SW will follow. ASSESSMENT/CHART REVIEW:73 yr old femalewith a history of ESRD on hemodialysis, hypertens ion, type 2 diabetes, hypothyroidism,chronic anemia,hyperlipidemia, hx of stroke [facility] noted on MRI concerning fo r osteomyelitis. SW met with pt's sister, Yina, and her cousin, Keri, who were waiting in pt's room while s he was in dialysis. SW will need to follow up with pt re: d/c planning. Pt's sister and co usin related that pt mostly lives at Yina's house outside [place], [place], but does not like to be tied down because she enjoys attending [place] festivals and many events. She does atten d dialysis weekly. Pt has a vehicle and is very independent. D/C TRANSPORT: tbd BARRIERS TO D/C: none CONTACTS: Yina La: sister India Tilley: sister [facility]: [phone] fax: [phone] [place] [phone] Gregg Mcgarry [facility] - 03/27/2019 2:17 PM PDTFormatting of this note might be different from jerald posadas original. SOCIAL WORK D/C PLAN: SNF NEXT STEPS: SW to follow up with pt regarding SNF preference INTERVENTION: On-going dc planning, chart reviewed and met with pt. 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 Provided list of [...] pt mostly lives at Yina's house outside [place], [place], but does not like to be tied down because she enjoys attending [place] festivals and many events. She does atten d dialysis weekly. Pt has a vehicle and is very independent. ASSESSMENT/CHART REVIEW:73 yr old femalewith a history of ESRD on hemodialysis, hypertens ion, type 2 diabetes, hypothyroidism,chronic anemia,hyperlipidemia, hx of stroke [facility] noted on MRI concerning fo r osteomyelitis. D/C TRANSPORT: tbd BARRIERS TO D/C: none CONTACTS: Yina La Sister [phone] India Tilley Sister [phone] Irish Cadet, Assistant Manager Bilingual - 03/27/2019 1:33 PM PDTFormatting of this [...] mg/dL (H)). Lab Results Component Value Date/Time [facility] 17.7 03/27/2019 05:12 I/O last 3 completed shifts: In: 360 [P.O.:360] Out: 1 [Urine:1] I/O this shift: In: - Out: 2000 Micro/Cultures: BCx - NGTD, BiopsyCx - NGTD Per P&T-approved Vancomycin Protocol Electronically signed by: Aimee Carroll, Assistant Manager Bilingual 03/27/2019 13:33Electronically si gned by Ray Joel, PharmD at 03/27/2019 2:04 PM PDT Associated attestation - Ray Joel, PharmD - 03/27/2019 2:04 PM PDTI reviewed and agr ee with the assessment and plan. Ray Joel, PharmD 03/27/2019 14:04 Randy Corrigan MD - 03/27/2019 10:52 AM PDT [facility] Date of Service: 03/27/2019 Rounding Physician: Randy Corrigan MD Patient Name: Estefani Tilley : 1945 Medical Record: [id number] Hospital Summary: Estefani Tilley is a 73 [...] Tilley 73 y.o. 1945 Med. Record Number: [id number] Date of admission: 03/24/2019 Patient admitted with [...] Electronically signed by: Carlos Jansen, 03/27/2019 7:10 [facility] Katey Solis MD - 03/26/2019 5:40 PM PDT Patient: Estefani Tilley Date of : 1945 Admit Date: 03/24/2019 Date of Service: 03/26/2019 PCP: Francisca Womack PA-C Hospital Day: Hospital Day: 3 Hospital Course: 73-year-old female with history of ESRD on hemodialysis, hypertension, type 2 diabetes, hyp othyroidism, chronic anemia, hyperlipidemia with a history of stroke transferred from [facility] for evaluation of T11-T12 lesion noted on [...] Single Lumen 03/24/19 2143 Left Lateral Forearm ngmo-awz-auobcc daniel ter system 20 gauge;1 1/4 in [...] - 99 mg/dL Final Comment: Performed by [facility] [address] [place] [address] 03/26/2019 06:49 116 (H) 65 - 99 mg/dL Final Comment: Performed by [facility] [address] [place] [place] [address] 03/25/2019 20:37 110 (H) 65 - 99 mg/dL Final Comment: Performed by [facility] [address] [place] [address] 12/09/2018 18:05 113 (H) 70 - 109 [...] this chart may have been created with Dr. Tariff voice recognition software. Occasi onal wrong-word or [...] Vancomycin Protocol Electronically signed by: Jose Menard, Assistant Manager Bilingual 03/26/2019 10:52 Hsu, Randy Nunez MD - 03/26/2019 1 0:38 AM PDT [facility] Date of Service: 03/26/2019 Rounding Physician: Randy Corrigan MD Patient Name: Estefani Tilley : 1945 Medical Record: [id number] Hospital Summary: Estefani Tilley is a 73 [...] Tilley 73 y.o. 1945 Med. Record Number: [id number] Date of admission: 03/24/2019 Patient admitted with [...] Electronically signed by: Carlos Jansen, 03/26/2019 8:03 [facility] Katey Solis MD - 03/25/2019 3:50 PM PDT Patient: Estefani Tilley Date of : 1945 Admit Date: 03/24/2019 Date of Service: 03/25/2019 PCP: Francisca Womack PA-C Hospital Day: Hospital Day: 2 Hospital Course: 73-year-old female with history of ESRD on hemodialysis, hypertension, type 2 diabetes, hyp othyroidism, chronic anemia, hyperlipidemia with a history of stroke transferred from [facility] for evaluation of T11-T12 lesion noted on [...] Peripheral IV Line - Single Lumen 03/24/19 6211 Left Lateral Forearm rvzz-jfe-cqdutl daniel ter system 20 gauge;1 1/4 in [...] - 99 mg/dL Final Comment: Performed by [facility] [address] [place] [address] 03/25/2019 06:52 107 (H) 65 - 99 mg/dL Final Comment: Performed by [facility] [address] [place] [address] 03/24/2019 20:11 112 (H) 65 - 99 mg/dL Final Comment: Performed by [facility] [address] [place] [place] [address] 12/09/2018 18:05 113 (H) 70 - 109 [...] this chart may have been created with Dr. Tariff voice recognition software. Occasi onal wrong-word or sound-alike substitutions may have occurred due to the inherent mckeon itations of voice recognition software. Please read the chart carefully and recognize, using context, where these substitutions have occurred su, Randy Nunez MD - 0 03/25/2019 1:47 PM PDT [facility] Date of Service: 03/25/2019 Rounding Physician: Randy Corrigan MD Patient Name: Estefani Tilley : 1945 Medical Record: [id number] Hospital Summary: Estefani Tilley is a 73 [...] Trace Corrigan MD, 03/25/2019, 13:47 etNan wilkes CUSTOM PROTECTION OFFICER - 03/25/2019 10:49 AM PDT SOCIAL WORK [...] pt mostly lives at Yina's house outside [place], [place], but does not like to be tied down because she enjoys attending [place] festivals and many events. She does atten d dialysis weekly. Pt has a vehicle and is very independent. ASSESSMENT/CHART REVIEW:73 yr old femalewith a history of ESRD on hemodialysis, hypertens ion, type 2 diabetes, hypothyroidism,chronic anemia,hyperlipidemia, hx of stroke [facility] T[facility]-T12 lesion noted on MRI concerning fo r osteomyelitis. D/C TRANSPORT: tbd BARRIERS TO D/C: none CONTACTS: Yina La Sister [phone] India Tilley Sister [phone] Carlos Gonzales M D - 03/25/2019 8:34 AM PDT Infectious Diseases Progress Note Pt. Name/Age/: Estefani Tilley 73 y.o. 1945 Med. Record Number: [id number] Date of admission: 03/24/2019 Patient admitted with [...] Electronically signed by: Carlos Jansen, 03/25/2019 8:34 [facility] Jose Gamez, Assistant Manager Bilingual - 03/24/2019 10:46 PM PDTFormatting of this note might be different from the origin md. Pharmacy Progress Note VANCOMYCIN PER PHARMACY PROTOCOL: [...] Vancomycin Protocol Electronically signed by: Jose Menard, Assistant Manager Bilingual 03/24/2019 22:46 ladys England MSW - 9 [...] pt mostly lives at Yina's house outside [place], [place], but do es not like to be tied down because she enjoys attending [place] festivals and many events. She does attend dialysis weekly. Pt has a vehicle and is very independent. ASSESSMENT/CHART REVIEW:73 yr old female with a history of ESRD on hemodialysis, hypertensi on, type 2 diabetes, hypothyroidism, chronic anemia, hyperlipidemia, hx of stroke transferre d from [facility] for evaluation of T11-T12 lesion noted on MRI concerning for ost eomyelitis. D/C TRANSPORT: tbd BARRIERS TO D/C: none CONTACTS: Yina La Sister [phone] India Tilley Sister [phone] atey Hill MD - 03/24/2019 3:53 PM PDTPatient seen and examined. Chart reviewed. Briefly, 73-year-old female with history of ESRD on hemodialysis, hypertension, type 2 diab etes, hypothyroidism, chronic anemia, hyperlipidemia with a history of stroke transferred [facility] for evaluation of T11-T12 lesion noted on [...] not have any p raza, consider antidepressants. 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 2. [employer] Trough: 15-20 mcg/ml [...] Procedure Component Value Units Date/Time Culture, Blood [[id number]] Collected: 03/23/192332 Order Status: Sent Lab Status: In process Updated: 03/23/192348 Specimen: Blood Culture, Blood [[id number]] Collected: 03/23/192254 Order Status: Sent Lab Status: [...] PROVID[facility] AE | | | POC | [facility] [address], | | SACRED | | | | [place] [address] | | HEART | | | |Performed by [facility] [address], [place], [place] | | MEDICAL | | | [...] SACRED | [address] | [place], [place] | | | [facility] [...] | [facility] | | | POC | [facility] [address], | | SACRED | | | | [place] [address] | | HEART | | | |Performed by [facility] [address], [place] [address] | | MEDICAL | | | | [...] + | JIM[facility]EN[facility]A [facility] | [address] | [place] [address] | | | [facility] | | | | | YANY [...] | | LABORATORY | | | | [facility] [address], | | [place] | | | | [place] [address] | | | | + + + + + + + + | Specimen | + + | Blood specimen | | (specimen) | + + + + + + + | Performing | Address | City/State/Zipcode | Phone Number | | Organization | | | | + + + + + | [facility] | [address] | [place] [address] | | | [facility] | | | | | LABORATORY [...] ENCE | | | Immature | by [facility] [address], | K/uL | SACRED | | | Granulocyte | [place] [address] | | HEART | | | s |Performed by [facility] [address], [place] [address] | | MEDICA L | | | [...] + + | [facility] | [address] | [place] [address] | | | [facility] | | | | | LABORATORY [...] by | | | | | | [facility] [address], | | | | | | [place] [address] | | | | + + + + + + + + | Specimen | + + | Blood specimen | | (specimen) | + + + + + + + | Performing | Address | City/State/Zipcode | Phone Number | | Organization | | | | + + + + + | [facility] | [address] | [place] [address] | | | [facility] | | | | | LABORATORY [...] | | | POC | Performed by [facility] [address] | | SACRED | | | | [address] [place] | | HEART | | | | [address] | | MEDICAL | | | | [...] + | PROVIDEJOSE AE [facility] | [address] | [place] [address] | | | [facility] | | | | | LABORATORY [...] | | | POC | Performed by [facility] [address] | | SACRED | | | | [address], [place] | | HEART | | | | [address] | | MEDICAL | | | | [...] + | [facility] | [address] | [place] [address] | | | [facility] | | | | | LABORATORY [...] | | | POC | Performed by [facility] [address] | | SACRED | | | | [address] [place] | | HEART | | | | [address] | | MEDICAL | | | | [...] + + | RIMAE [facility] | [address] | [place] [address] | | | [facility] | | | | | LABORATORY [...] | | | POC | Performed by [facility] [address] | | SACRED | | | | [address], [place] | | HEART | | | | [address] | | MEDICAL | | | | [...] + + | [facility] | [address] | [place] [address] | | | [facility] | | | | | LABORATORY [...] PROVIDE NCE | | | | by [facility] [address], | | SACRED | | | | [place] [address] | | HEART | | | |Performed by [facility] [address], [place] [address] | | MEDICAL | | | | [...] + | [facility] | [address] | [place] [address] | | | [facility] | | | | | LABORATORY [...] LUIS CE | | | | by [facility] [address], | | SACRED | | | | [place] [address] | | HEART | | | |Performed by [facility] [address], [place] [address] | | MEDICAL | | | | [...] + + | [facility] | [address] | [place] [address] | | | HE[facility] MEDICAL [facility]ENTER | [...] | | LABORATORY | | | | [facility] [address], | | [place] | | | | [place] [address] | | | | + + + + + + + + | Specimen | + + | Blood specimen | | (specimen) | + + + + + + + | Performing | Address | City/State/Zipcode | Phone Number | | Organization | | | | + + + + + | [facility] | [address] | [place] [address] | | | [facility] | | | | | LABORATORY [...] ENCE | | | Counted | by [place] [address], | | SACRED | | | | [place] [address] | | HEART | | | |Performed by [facility] [address], [place] [address] | | MEDICA L | | | [...] [address] | [place] [address] | | | [facility] | | | | | LABORATORY [...] | | | POC | Performed by [facility] [address] | | SACRED | | | | [address], [place] | | HEART | | | | [address] | | MEDICAL | | | | [...] [address] | [place] [address] | | | HEART [facility] | | | | | [...] | [facility] | | | POC | [facility] [address], | | SACRED | | | | [place] [address] | | HEART | | | |Performed by [facility] [address], [place] [address] | | MEDICAL | | | | [...] + + | JIMRENUKA LIZ | [address] | [place] [address] | | | [facility] | | | | | LABORATORY [...] | | | POC | Performed by [facility] [address] | | SACRED | | | | [address] [place] | | HEART | | | | [address] | | MEDICAL | | | | [...] + + | [facility] | [address] | [place] | | | HE[facility]ICAL [facility]ENTER [...] | [facility] | | | POC | [facility] [address], | | SACRED | | | | [place] | | HEART | | | |Performed by [facility] [address], [place] | | MEDICAL | | | [...] + | [facility] | [address] | [place] [address] | | | [facility] | | | | | LABORATORY [...] by | | | | | | [facility] [address], | | | | | | [place] [address] | | | | + + + + + + + + | Specimen | + + | Blood specimen | | (specimen) | + + + + + + + | Performing | Address | City/State/Zipcode | Phone Number | | Organization | | | | + + + + + | [facility] | [address] | [place] [address] | | | [facility] | | | | | LABORATORY [...] ENCE | | | Counted | by [place] [address], | | SACRED | | | | [place] [address] | | HEART | | | |Performed by [facility] [address], [place] [address] | | MEDICA L | | | [...] + | JIMJOSE ADora LIZ | [address] | [place] [address] | | | [facility] | | | | | LABORATORY [...] PROVIDEN CE | | | | by [facility] [address], | | SACRED | | | | [place] | | HEART | | | |Performed by [facility] [address], [place] | | MEDICAL | | | [...] + | PROVIDEJOSE AE SACRED | [address] | [place], [place] | | | HEART MEDICAL CENTER [...] | | LABORATORY | | | | [facility] [address], | | CERN[place] | | | | [place] [address] | | | | + + + + + + + + | Specimen | + + | Blood specimen | | (specimen) | + + + + + + + | Performing | Address | City/State/Zipcode | Phone Number | | Organization | | | | + + + + + | [facility] | [address] | [place] [address] | | | [facility] | | | | | YANY [...] | | | POC | Performed by [facility] [address] | | SACREVANS | | | | [address], [place] | | HEART | | | | [address] | | MEDICAL | | | | [...] + | PROVIDEJOSE AE [facility] | [address] | [place] [address] | | | HE[facility] MEDICAL CENTER | [...] | | | POC | Performed by [facility] [address] | | SACRED | | | | [address] [place] | | HEART | | | | [address] | | MEDICAL | | | | [...] | [place] | | | [facility] | | | | | LABORATORY [...] | PROVIDENCE | | | POC | [facility] [address], | | SACRED | | | | [place] | | HEART | | | |Performed by [facility] [address], [place] [address] | | MEDICAL | | | | [...] + + | [facility] | [address] | [place] [address] | | | HE[facility] MEDICAL CENTER | [...] | | LABORATORY | | | | [facility] [address], | | [place] | | | | [place] [address] | | | | + + + + + + + + | Specimen | + + | Blood specimen | | (specimen) | + + + + + + + | Performing | Address | City/State/Zipcode | Phone Number | | Organization | | | | + + + + + | [facility] | [address] | [place] [address] | | | HE[facility] MEDICAL [facility]ENTER | [...] PROVIDE NCE | | | | by [facility] [address], | | SACRED | | | | [place] [address] | | HEART | | | |Performed by [facility] [address], [place] [address] | | MEDICAL | | | | [...] [address] | [place] [address] | | | [facility] | | | | | LABORATORY [...] | | | POC | Performed by [facility] [address] | | SACRED | | | | [address], [place] | | HEART | | | | [address] | | MEDICAL | | | | [...] + | JIMJOSE [place]ora AGUSTO | [address] | [place] [address] | | | [facility] | | | | | YANY [...] | | | POC | Performed by [facility] [address] | | SACRED | | | | [address] [place] | | HEART | | | | [address] | | MEDICAL | | | | [...] [address] | [place] [address] | | | [facility] | | | | | LABORATORY [...] AGUSTO | | | | [place] [address] | | HEART | | | |Performed by [facility] [address], [place] [address] | | MEDICAL | | | | [...] + + | [facility] | [address] | [place], [place] | | | HE[facility] MEDICAL [facility]ENTER [...] | PROVIDENCE | | | POC | [facility] [address], | | SACRED | | | | [place] [address] | | HEART | | | |Performed by [facility] [address], [place] [address] | | MEDICAL | | | | [...] + | JIMJOSE ADora LIZ | [address] | [place] [address] | | | [facility] | | | | | LABORATORY [...] by | | | | | | [facility] [address], | | | | | | [place] [address] | | | | + + + + + + + + | Specimen | + + | Blood specimen | | (specimen) | + + + + + + + | Performing | Address | City/State/Zipcode | Phone Number | | Organization | | | | + + + + + | [facility] AE [facility] | [address] | [place] [address] | | | [facility] | | | | | LABORATORY [...] | | | POC | Performed by [facility] [address] | | SACRED | | | | [address], [place] | | HEART | | | | [address] | | MEDICAL | | | [...] + + | [facility] | [address] | [place] [address] | | | [facility] | | | | | LABORATORY [...] | | | POC | Performed by [facility] [address] | | SACRED | | | | [address] [place] | | HEART | | | | [address] | | MEDICAL | | | | [...] [address] | [place] [address] | | | [facility] | | | | | LABORATORY [...] | | | POC | Performed by [facility] [address] | | SACRED | | | | [address], [place] | | HEART | | | | [address] | | MEDICAL | | | | [...] + | [facility] | [address] | [place] [address] | | | [facility]ICAL [facility]ENTER | [...] PROVIDENCE | | | | Performed by [facility] [address] | | SACRED | | | | [address] [place] | | HEART | | | | [address] | | MEDICAL | | | | [...] [address] | [place] [address] | | | [facility] | | | | | LABORATORY [...] | | | POC | Performed by [facility] [address] | | SACRED | | | | [address], [place] | | HEART | | | | [address] | | MEDICAL | | | | [...] + | [facility] | [address] | [place] [address] | | | HEART [facility] | | | | | [...] by | | | | | | [facility] [address] [place], | | | | | | [place] [address] | | | | + + + + + + + + | Specimen | + + | Blood specimen | | (specimen) | + + + + + + + | Performing | Address | City/State/Zipcode | Phone Number | | Organization | | | | + + + + + | JIMRENUKA LIZ | [address] | [place] [address] | | | [facility] | | | | | LABORATORY [...] | | LABORATORY | | | | [facility] [address] | | [place] | | | | [place] [address] | | | | + + + + + + + + | Specimen | + + | Blood specimen | | (specimen) | + + + + + + + | Performing | Address | City/State/Zipcode | Phone Number | | Organization | | | | + + + + + | [facility] | [address] | [place] [address] | | | [facility] | | | | | YANY [...] PROVIDE NCE | | | | by [facility] [address], | | SACRED | | | | [place] [address] | | HEART | | | |Performed by [facility] [address], [place] [address] | | MEDICAL | | | | [...] + | [facility] | [address] | [place] [address] | | | [facility] | | | | [...] CE | | | B-12 | by [facility] [address], | | SACRED | | | | [place] [address] | | HEART | | | |Performed by [facility] [address], [place] | | MEDICAL | | | [...] + + | [facility] | [address] | [place] | | | HE[facility]ICAL [facility]ENTER [...] by | | | | | | [facility] [address], | | | | | | [place] [address] | | | | + + + + + + + + | Specimen | + + | Blood specimen | | (specimen) | + + + + + + + | Performing | Address | City/State/Zipcode | Phone Number | | Organization | | | | + + + + + | [facility] | [address] | [place] [address] | | | [facility] | | | | | LABORATORY [...] | | | POC | Performed by [facility] [address] | | SACRED | | | | [address] [place] | | HEART | | | | [address] | | MEDICAL | | | | [...] + | [facility] | [address] | [place] [address] | | | [facility] | | | | | LABORATORY [...] | | | POC | Performed by [facility] [address] | SACRED | | | | [address], [place] | | HEART | | | | [address] | | MEDICAL | | | | [...] + | BETH LIZ | [address] | [place] [address] | | | [facility] | | | | | LABORATORY [...] | | | POC | Performed by [facility] [address] | | SACRED | | | | [address] [place] | | HEART | | | | [id number] | | MEDICAL | | | | [...] + | BETH LIZ | [address] | [place] [address] | | | [facility] | [...] PROVIDE NCE | | | | by [facility] [address], | | SACRED | | | | [place] [address] | | HEART | | | |Performed by [facility] [address], [place] [address] | | MEDICAL | | | | [...] + + | BETH LIZ | [address] | [place] | | | [facility] | | | | | LABORATORY [...] LUIS CE | | | | by [facility] [address], | | AGUSTO | | | | [place] | | HEART | | | |Performed by [facility] [address], [place] [address] | | MEDICAL | | | [...] + + | BETH LIZ | [address] | [place] [address] | | | HEART [facility]ICAL [facility]ENTER | [...] | | LABORATORY | | | | [facility] [address], | | [place] | | | | [place] [address] | | | | + + + + + + + + | Specimen | + + | Blood specimen | | (specimen) | + + + + + + + | Performing | Address | City/State/Zipcode | Phone Number | | Organization | | | | + + + + + | BETH LIZ | [address] | [place] [address] | | | [facility] | | | | | LABORATORY [...] | | | POC | Performed by [facility] [address] | | SACRED | | | | [address] [place] | | HEART | | | | [address] | | MEDICAL | | | | [...] + | PROVIDEJOSE AE [facility] | [address] | [place] [address] | | | [facility] | | | | | LABORATORY [...] | | | POC | Performed by [facility] [address] | | SACRED | | | | [address], [place] | | HEART | | | | [address] | | MEDICAL | | | | [...] + + | BETH LIZ | [address] | [place] [address] | | | [facility] | | | | | LABORATORY [...] | SACRED | | | Total | [id number] | | HEART | | | | [address] [place], [place] | | MEDICAL | | | | [phone] Daniel | | CENTER | | | | L Ph:[phone] | | LABORATORY | | | | [...] + + | BETH LIZ | [address] | [place] [address] | | | [facility] | | | | | LABORATORY [...] | SACRED | | | | by [facility] [address], | | HEART | | | | [place] [address] | | MEDICAL | | | | [...] [address] | [place] [address] | | | [facility] | | | | | LABORATORY [...] | SACRED | | | | by [facility] [address], | | HEART | | | | [place] [address] | | MEDICAL | | | | [...] + + | BETH LIZ | [address] | [place] [address] | | | HEART [facility] | | | | | [...] | MEDICAL | | | | by [facility] [address], | | CENTER | | | | [place] [address] | | LABORATORY | | | |Performed by [facility] [address], [place] [address] | | CERNER | | | | [...] + + | BETH LIZ | [address] | [place] [address] | | | [facility] | | | | | LABORATORY [...] | | | POC | Performed by [facility] [address] | | [place]CR[place]ANS | | | | [place] | | HEART | | | | [address] | | MEDICAL | | | | [...] + | BETH LIZ | [address] | [place] [address] | | | [facility] | | | | | LABORATORY [...] | | | POC | Performed by [facility] [address] | | SACRED | | [...] [address] | [place] [address] | | | HEART [facility] | | | | | [...] CENTER | | | | 3.5Performed by [facility] [address] | | LABORATORY | | | | [address], [place] | | [place] | | | | [address] | | | | + + + + + + + + | Specimen | + + | Blood specimen | | (specimen) | + + + + + + + | Performing | Address | City/State/Zipcode | Phone Number | | Organization | | | | + + + + + | BETH LIZ | [address] | [place] [address] | | | [facility] | | | | | YANY [...] | | | Immature | Performed by [facility] [address] | K/uL | SACRED | | | Granulocyte | [place] | | HEART | | | s | [phone] | | MEDICAL | | | | [...] + | BETH LIZ | [address] | [place] [address] | | | [facility] | | | | | LABORATORY [...] | | LABORATORY | | | | [facility] [address], | | [place] | | | | [place] [address] | | | | + + + + + + + + | Specimen | + + | Blood specimen | | (specimen) | + + + + + + + | Performing | Address | City/State/Zipcode | Phone Number | | Organization | | | | + + + + + | BETH LIZ | [address] | [place] [address] | | | [facility] | | | | | LABORATORY [...] | | | First dose on [facility] 03/30/19 at 1130 | | AM PDT [...] | | | First dose on [facility] 03/30/19 at 2100 | | PM PDT [...] scheduled: AC, NPO, Daytime | | | 2091-3699 Use NIGHT DOSE for | | | doses scheduled: HS, 3AM, | | | Nighttime [id number] If the BG is | | | [...] | | | | | | | [place] 10/325 if ordered., | | | | [...]
--- OUTSIDE RECORDS SUMMARY | ~2019-07-27 | XMS | Encounter Summary ---
Demographics + + + | Address | [address] | | | [place] [address] | + + + | Home Phone [...] Author | [facility] | | | and [place] | + + + | Organization | [facility] | | | and [place] | + + + | Address | Unknown | + + + | Phone | Unavailable | + + + Support + + + + + | Name | Relationship | Address | Phone | + + + + + | India Tilley | ECON | [address] | | | | | [place], [place] | | | | | [address] | | + + + + + | Yina La | ECON | Unknown | | + + + + + | Yina Peterson | ECON | Unknown | | + + + + + | Leatha Casillas | ECON | Unknown | | + + + + + Care Team Providers + +------+ + | Care Pilot Plant Technician Name | Role | Phone | [...] | | | | renal | PA-C [address] | [address] [place] [address] | | | | | disease | | [address]orden [place] | | | | | ([facility]) | CON[facility]ATED | [address] | | | | | Procedures | WAY | [address] | | | | | [place] OFFICE | [place], | [address] Phone: | | | | | OUTPATIENT | [place] [address] | [phone] | | | | | VISIT 25 | Phone: | Fax: | | | | | [place] | [phone] | [phone] | | | | | ESRD RELATED | Fax: | | | | | | SVC MONTHLY | [phone] | | | | | | 20&/> YR | | | | | | | OLD 4/> | | | | | | | VISITS | | | +--------+--------+ + + + + Encounter Details +--------+ + + + + | Date | Type | Department | Care Team | Description | +--------+ + + + + | 08/22/ | Off-Site | [facility] | Goip Muñoz | End stage renal | | 2018 | Visit | NEPHROLOGY [address] | M, DO [address] | disease (HCC) | | | | [address] | [place], [address] | (Primary Dx) | | | | [place], [place] | [place], [place] | | | | | [address] | [address] | | | | | [phone] | | | +--------+ + + + [...]
--- OUTSIDE RECORDS SUMMARY | ~2019-07-27 | XMS | Encounter Summary ---
Demographics + + + | Address | [address] | | | [place] [address] | + + + | Home Phone [...] + | Author | [facility] | | | and [place] | + + + | Organization | [facility] | | | and [place] | + + + | Address | Unknown | + + + | Phone | Unavailable | + + + Support + + + + + | Name | Relationship | Address | Phone | + + + + + | India Tilley | ECON | [address] | | | | | [place], [...] Team Providers + +------+ + | Care Negative Cleaner Name | Role | Phone | [...] + + | 03/09/ | Telephone | [facility] | Santos Stephenson | Other (appointment) | | 2018 | | SURGERY [address] | MD Kinga, FACS [address] | | | | | [place], [place] | [address] [facility] | | | | | [address] | [place] [address] | | | | | [phone] | [phone] | | | | | | | [...]
--- OUTSIDE RECORDS SUMMARY | ~2019-07-27 | XMS | Encounter Summary ---
Demographics + + + | Address | [address] | | | [place] [address] | + + + | Home Phone [...] Author | [facility] | | | and [place] | + + + | Organization | [facility] | | | and [place] | + + + | Address | Unknown | + + + | Phone | Unavailable | + + + Support + + + + + | Name | Relationship | Address | Phone | + + + + + | India Tilley | ECON | [address] | | | | | [place], [place] | | | | | [address] | | + + + + + | Yina La | ECON | Unknown | | + + + + + | Yina Peterson | ECON | Unknown | | + + + + + | Leatha Casillas | ECON | Unknown | | + + + + + Care Team Providers + +------+ + | Care Geophysical Data Technician Name | Role | Phone | + +------+ + PCP | Unavailable | + +------+ + Encounter Details +--------+ + + + + | Date | Type | Department | Care Team | Description | +--------+ + + + + | 11/07/ | Hospital | [facility] | Peyman Wu, | CHR ISCHEMIC HRT DIS | | 2002 | Encounter | MEDICAL CENTER | [address] | NOS | | | | CLINICAL DECISION | [address] | | | | | [address] [facility] | [address] | | | | | [place], [place] | [phone] | | | | | [address] | | | | | | [phone] | | | +--------+ + + + [...]
--- OUTSIDE RECORDS SUMMARY | ~2019-07-27 | XMS | Encounter Summary ---
Demographics + + + | Address | [address] | | | [place] [address] | + + + | Home Phone [...] + | India Tilley | ECON | [address] | | | | | [place], [...] Team Providers + +------+ + | Care Dividing Machine Operator Helper Name | Role | Phone [...] [address] | | | | | [address] [facility] | [place] | | | | | [place] | [address] | | | | | [address] | | | | | | [phone] | | | +--------+--------+ + + + [...]
--- OUTSIDE RECORDS SUMMARY | ~2019-07-27 | XMS | Encounter Summary ---
Demographics + + + | Address | [address] | | | [place] [address] | + + + | Home Phone [...] | [facility] | | | and [place] | + + + | Organization | [facility] | | | and [place] | + + + | Address | Unknown | + + + | Phone | Unavailable | + + + Support + + + + + | Name | Relationship | Address | Phone | + + + + + | India Tilley | ECON | [address] | | | | | [place], [place] | | | | | [address] | | + + + + + | Yina La | ECON | Unknown | | + + + + + | Yina Peterson | ECON | Unknown | | + + + + + | Leatha Casillas | ECON | Unknown | | + + + + + Care Team Providers + +------+ + | Care Template Inspector Name | Role | Phone | + +------+ + PCP | Unavailable | + +------+ + Encounter Details +--------+ + + + + | Date | Type | Department | Care Team | Description | +--------+ + + + + | 01/03/ | Episode | [facility] | Mike Pearson | | | 2018 | Changes | SURGERY [address] | [address], [address] | | | | | [place] | | | | | | [address] | | | | | | [phone] | | | +--------+ + + + [...]
--- OUTSIDE RECORDS SUMMARY | ~2019-07-27 | XMS | Encounter Summary ---
Demographics + + + | Address | [address] | | | [place] [address] | + + + | Home Phone [...] | Author | [facility] | | | and Kamaljitana | + + + | Organization | [facility] | | | and [place] | + + + | Address | Unknown | + + + | Phone | Unavailable | + + + Support + + + + + | Name | Relationship | Address | Phone | + + + + + | India Campos | ECON | [address] | | | | | [place], [place] | | | | | [address] | | + + + + + | Yina La | ECON | Unknown | | + + + + + | Yina Peterson | ECON | Unknown | | + + + + + | Leatha Casillas | ECON | Unknown | | + + + + + Care Team Providers + +------+ + | Care Filtration Supervisor Name | Role | Phone | [...] | 10/01/ | Hospital | [facility] | Olegario Peng, | Hypertensive | | 2018 - | Encounter | [facility] | [address] | emergency; Chest | | | | [address] [place] | [place] | pain, unspecified | | 10/06/ | | [place] [address] | [address] | type; Leg swelling; | | 2017 | | [phone] | | CKD (chronic kidney | | | | | Rupal Laguna MD | disease), stage IV | | | | | [address] | (HCC); Type 2 | | | | | [place] | diabetes mellitus | | | | | [address] | with stage 4 chronic | | | | | | kidney disease, | | | | | Nikhil Vega, | with long-term | | | | | MD Mayelin [address] | current use of | | | | | [address] [place] | insulin (HCC); | | | | | [place] [address] | Anemia of chronic | | | | | [phone] | renal failure, stage | | | [...] Keys MD - 10/06/2017 10:38 AM PST [facility] DISCHARGE SUMMARY Pt. Name/Age/: Estefani Campos 72 [...] Specialty: Nephrology Why: at 4:30PM, at the [facility], [address], [place], [place], ([phone]). Contact information: [address] [facility], [facility] [address] [facility] [address] Santos Stephenson MD, FACS In 2 weeks. Specialties: General Surgery, Vascular Surgery Why: Dr. Stephenson's Office, the Vascular Surgeon, will Call you with the time.* Contact information: [address] [facility] [address] RESULTS: Narrative TECHNIQUE: Renal [...] in the 230 range at [facility] and she received IV hydralazine and was [...] signed by: Edison Keys MD, 10/06/2017 10:48 [facility] Portions of this chart may have been created with Qualvu voice recognition software. Occasi onal wrong-word or [...] your Appt. with Dr. Muñoz at the [facility]. 2. Dr. Stephenson Office, the Vascular [...] to come to the [facility] [place], [place] for follow up on 11/08/17. We [...] uremic sympto ms do not intervene. Thanks. [facility] Edison Andrea M D - 10/05/2017 2:20 PM PST [facility] PMG Hospitalist Progress Note Estefani Campos [...] that she should be followed by a luster repairer night discussed this issue with her. I [...] as outlined above. Edison Keys 10/05/2017 14:20 [facility] Portions of this chart may have been created with Qualvu voice recognition software. Occasi onal wrong-word or sound-alike substitutions may have occurred due to the inherent mckeon itations of voice recognition software. Please read the chart carefully and recognize, using context, where these substitutions have occurred Mayelin Sanders MD - 10/04/2017 5:37 PM PST [facility] IN HOSPITALIST PROGRESS NOTE Patient: Estefani Campos : 1945: Age: 72 y.o. MedRec: [id number] Admission date: 10/01/2017 Hospital day # : [...] Procedure Component Value Units Date/Time Culture, MRSA [[id number]] Collected: 10/02/17 0803 Order Status: Completed Lab [...] Code: FULL Mayelin Vega MD 10/04/2017 17:38 [facility] Portions of this chart may have been created with Qualvu voice recognition software. Occasi onal wrong-word or [...] performed and electronically signed by Puja Whitman, Inventory Worker 2017 10:09 Electronically signed by: Ta Ronquillo RPH 10/04/2017 10:14 Diann Sanders MD - 10/03/2017 12:46 PM PST [facility] [place] HOSPITALIST PROGRESS NOTE Patient: Estefani Campos : 1945: Age: 72 y.o. MedRec: [id number] Admission date: 10/01/2017 Hospital day # : [...] AC Ruapl Laguna MD 75 mcg at 10/03/17 0633 [...] Procedure Component Value Units Date/Time Culture, MRSA [[id number]] Collected: 10/02/17 0803 Order Status: Completed Lab [...] Code: FULL Mayelin Vega MD 10/03/2017 12:46 [facility] Portions of this chart may have been created with Qualvu voice recognition software. Occasi onal wrong-word or sound-alike substitutions may have occurred due to the inherent mckeon itations of voice recognition software. Please read the chart carefully and recognize, using context, where these substitutions have occurred ayelin Engle MD - 10/02/2017 9:13 AM PSTFormatting of this note might be different from the or iginal. [facility] [place] HOSPITALIST PROGRESS NOTE Patient: Estefani Campos : 1945: Age: 72 y.o. MedRec: [id number] Admission date: 10/01/2017 Hospital day # : [...] ECGs available Confirmed by KEN ELLISON MD ([id number]) on 10/02/2017 7:49:20 AM Lipid Panel Collection [...] Procedure Component Value Units Date/Time Culture, MRSA [[id number]] Collected: 10/02/17802 Order Status: Sent Lab Status: [...] is in the process of establishing with [facility]. Additionally, she reports [...] with tele Mayelin Vega MD 10/02/2017 9:13 [facility] Portions of this chart may have been created with Qualvu voice recognition software. Occasi onal wrong-word or [...] + | [facility] | [address] | [place] | [phone] | | [facility] | | [address] | | | - LABORATORY | | [...] [address] | [place] | [phone] | | [facility] | | [address] | | | - LABORATORY | | [...] mL/min/1.73m2 | [facility] | | | [place] | | | MEDICAL | | | [...] [address] | [place] | [phone] | | [facility] | | [address] | | | - LABORATORY | | [...] + | [facility] | [address] | [place] | [phone] | | [facility] | | [address] | | | - LABORATORY | | [...] | | POC | | | [facility] | | | | | [...] ST. | [address] | [place] | [phone] | | [facility] | | [address] | | | - LABORATORY | | [...] [address] | [place] | [phone] | | [facility] | | [address] | | | - LABORATORY | | [...] + | [facility] | [address] | [place] | [phone] | | [facility] | | [address] | | | - LABORATORY | | [...] + | [facility] | [address] | [place] | [phone] | | [facility] | | [address] | | | - LABORATORY | | [...] ST. | [address] | [place], [place] | [phone] | | [facility] | | [address] | | | - LABORATORY | | [...] [address] | [place] | [phone] | | [facility] | | [address] | | | - LABORATORY | | [...] [address] | [place] | [phone] | | [facility] | | [address] | | | - LABORATORY | | [...] + | [facility] | [address] | [place] | [phone] | | [facility] | | [address] | | | - LABORATORY | | [...] ST. | [address] | [place], [place] | [phone] | | [facility] | | [address] | | | - LABORATORY | | [...] [address] | [place] | [phone] | | [facility] | | [address] | | | - LABORATORY | | [...] 3.11 (H) | 0.60 - 1.30 | [facility] | | | | | mg/dL | [facility] | | | | | | MEDICAL | | | | | | CENTER - | | | | | | LABORATORY | | + + + + + + | eGFR if not | 15 (L)Comment: | >=60 | [facility] | | | | GLOMERULAR FILTRATION | mL/min/1.73m2 | [facility] | | | [place] | RATE,ESTIMATED | | MEDICAL | | | | mL/min/1.41g5Fnis than | | CENTER - | | [...] [address] | [place] | [phone] | | [facility] | | [address] | | | - LABORATORY | | [address] | [place] | [phone] | | [facility] | | [address] | | | - LABORATORY | | [...] [address] | [place] | [phone] | | [facility] | | [address] | | | - LABORATORY | | [...] + | [facility] | [address] | [place] | [phone] | | [facility] | | [address] | | | - [...] | | | POC | | | [facility] | | | | | | [...] + | [facility] | [address] | [place] | [phone] | | [facility] | | [address] | | | - LABORATORY | | [...] [address] | [place] | [phone] | | [facility] | | [address] | | | - LABORATORY | | [...] [address] | [place] | [phone] | | [facility] | | [address] | | | - LABORATORY | | [...] mL/min/1.73m2 | [facility] | | | [place] | RATE,ESTIMATED | | MEDICAL | | | | mL/min/1.25q8Dpha than | | CENTER - | | [...] [address] | [place] | [phone] | | [facility] | | [address] | | | - LABORATORY | | [...] [address] | [place] | [phone] | | [facility] | | [address] | | | - LABORATORY | | [...] [address] | [place] | [phone] | | [facility] | | [address] | | | - LABORATORY | | [...] 3.13 (H) | 0.60 - 1.30 | [facility] | | | | | mg/dL | [facility] | | | | | | MEDICAL | | | | | | CENTER - | | | | | | LABORATORY | | + + + + + + | eGFR if not | 15 (L)Comment: | >=60 | [facility] | | | | GLOMERULAR FILTRATION | mL/min/1.73m2 | [facility] | | | [place] | RATE,ESTIMATED | | MEDICAL | | | | mL/min/1.17n7Ooog than | | CENTER - | | [...] + | [facility] | [address] | [place] | [phone] | | [facility] | | [address] | | | - LABORATORY | | [...] ST. | [address] | [place], [place] | [phone] | | [facility] | | [address] | | | - LABORATORY | | | | + + + + + VAS Lower Extremity Venous Bilateral (10/02/2017 10:07 AM [facility]) + + | Specimen | + + [...] 454 R | | | Patient Number [id number] Date of Study | | | 10/02/2017 Visit Number [id number] Accession | | | [id number] Referring Physician LOY RUPAL Number | | | Date of 1945 Community Services Officer | | | WENDY HUDSON | | | [place] Age 72 year(s) | | | Interpreting CLAUDIA HUGHES MD | | | Snaker Tractor Driver Gender | | | Female Nurse | | | Stress Drip Box Tender Procedure Type of Study TTE procedure: ECHO [...] | 71.7 ml | | | EF Dwvvyxjpt23% Left Ventricle Diastolic Dimension: 5.37 cm | [...] Volume: 71.7 ml | | | EF Eazgnwisg40% | | | | | | Left [...] Jordan Results In - 10/02/2017 9:41 AM [facility] Transthoracic Echocardiography Report | | (TTE) Demographics Patient Name ANDRES BULLOCK Room Number 454 | | R Patient Number [id number] Date of Study 10/02/2017 Visit Number | | [id number] Referring Physician LOY MATA Number | | Date of 1945 Community Services Officer WENDY BECCA | | [facility] Age 72 year(s) Interpreting | | CLAUDIA HUGHES MD Snaker Tractor Driver Gender | | Female Nurse Stress TechnicianProcedureType [...] LA Volume: 71.7 ml EF | | Uoqvipupq06% Left Ventricle Diastolic Dimension: 5.37 cm Septum [...] LA Volume: 71.7 ml | | EF Iggraufsk55% | | | | Left Ventricle | [...] [address] | [place] | [phone] | | [facility] | | [address] | | | - LABORATORY | | [...] + | [facility] | [address] | [place] | [phone] | | [facility] | | [address] | | | - LABORATORY | | [...] [address] | [place] | [phone] | | [facility] | | [address] | | | - LABORATORY | | [address] | [place] | [phone] | | [facility] | | [address] | | | - LABORATORY | | [...] | | | | | | [employer] | | | | | [...] [address] | [place] | [phone] | | [facility] | | [address] | | | - LABORATORY | | [...] ST. | [address] | [place], [place] | [phone] | | [facility] | | [address] | | | - LABORATORY | | [...] 3.03 (H) | 0.60 - 1.30 | [facility] | | | | | mg/dL | [facility] | | | | | | MEDICAL | | | | | | CENTER - | | | | | | LABORATORY | | + + + + + + | eGFR if not | 15 (L)Comment: | >=60 | [facility] | | | | GLOMERULAR FILTRATION | mL/min/1.73m2 | [facility] | | | [place] | RATE,ESTIMATED | | MEDICAL | | | | mL/min/1.54f6Znfh than | | CENTER - | | [...] + | [facility] | [address] | [place] | [phone] | | [facility] | | [address] | | | - LABORATORY | | [...] + | [facility] | [address] | [place] | [phone] | | [facility] | | [address] | | | - LABORATORY | | [...] | | | | KEN ELLISON MD ([id number]) | | | | | | on [...] [address] | [place] | [phone] | | [facility] | | [address] | | | - LABORATORY | | [...] | | | | | | [employer] | | | | | [...] ST. | [address] | [place], [place] | [phone] | | [facility] | | [address] | | | - LABORATORY | | [address] | [place] | [phone] | | [facility] | | [address] | | | - LABORATORY | | [...] [address] | [place] | [phone] | | [facility] | | [address] | | | - LABORATORY | | [...] (H) | 7 - 18 mg/dL | [facility] | | | | | | [facility] | | | | | | MEDICAL | | | | | | CENTER - | | | | | | LABORATORY | | + + + + + + | Creatinine | 3.05 (H) | 0.60 - 1.30 | [facility] | | | | | mg/dL | [facility] | | | | | | MEDICAL | | | | | | CENTER - | | | | | | LABORATORY | | + + + + + + | eGFR if not | 15 (L)Comment: | >=60 | [facility] | | | | GLOMERULAR FILTRATION | mL/min/1.73m2 | [facility] | | | [place] | RATE,ESTIMATED | | MEDICAL | | | | mL/min/1.44k5Eyvc than | | CENTER - | | [...] + | [facility] | [address] | [place] | [phone] | | [facility] | | [address] | | | - LABORATORY | | [...] ST. | [address] | [place] | [phone] | | [facility] | | [address] | | | - LABORATORY | | [...] | | | | | NPO, Daytime 2568-7965 Use NIGHT | | | | | | | DOSE for doses scheduled: | | | | | | | HS, 3AM, Nighttime 9549-9288, | | | | | | + [...] DAILY, First dose | | | on [facility] 10/07/17 at 0900 | | + +---+ | | | + +---+ + +-------+ +-------+---+---+ | losartan (COZAAR) tablet 50 mg | Given | 10/05/19 | 50 mg | | | | 50 mg, Oral, 2 TIMES DAILY, | | 18 8:27 | | | | | First dose on [place] 10/03/17 at 0930 | | AM PST [...]
--- OUTSIDE RECORDS SUMMARY | ~2019-07-27 | XMS | Encounter Summary ---
Demographics + + + | Address | [address] | | | [place] [address] | + + + | Home Phone [...] + | Author | [facility] | | | and Kamaljitana | + + + | Organization | [facility] | | | and [place] | + + + | Address | Unknown | + + + | Phone | Unavailable | + + + Support + + + + + | Name | Relationship | Address | Phone | + + + + + | India Tilley | ECON | [id number] | | | | | [place], [place] | | | | | [address] | | + + + + + | Yina La | ECON | Unknown | | + + + + + | Yina Peterson | ECON | Unknown | | + + + + + | Leatha Casillas | ECON | Unknown | | + + + + + Care Team Providers + +------+ + | Care Router Machine Operator Name | Role | Phone [...] | (Fax) | | | | | [phone] | | | | | | [phone] | | | +--------+---------+ + + + [...] completion of IV abx Follow Up Appointments: [address] [address] [facility] [address] [place] [address] [facility] [address] [phone] Discharge Disposition: Home with Home Health Consultants This Admission: ID, Nephrology Hospital Course: 73-year-old female with history of ESRD on hemodialysis, hypertension, type 2 diabetes, hyp othyroidism, chronic anemia, hyperlipidemia with a history of stroke transferred from [facility] for evaluation of T11-T12 lesion noted on [...] had planned to go to SNF ([facility] in [place] - of which has accepted her [...] dialysis days after dialysis Osteomyelitis/Discitis of T11, [id number] -MRI spine 03/23/19: "mild paravertebral soft tissue [...] dialysis patient - has OP clinic in [place] already Macrocytic anemia likely secondary to-likely anemia [...] Value Units Date/Time Culture, Aerobic + Anaerobic [[id number]] Collected: 03/24/19 1514 Order Status: Completed Lab Status: Final result Updated: 03/29/1918 Specimen: Body Fluid from Vertebrae, Thoracic FINAL REPORT -- No Growth No anaerobes isolated Gram Stain Few Neutrophils No squamous epithelial cells seen No organisms seen Comment: Performed by [facility] [address] [place] [address] Gram Stain [[id number]] Collected: 03/24/19 151 Order Status: Canceled Lab Status: No result Updated: 03/24/191514 Specimen: Body Fluid from Vertebrae, Thoracic Culture, AFB Smear [[id number]] Collected: 03/24/191513 Order Status: Completed Lab Status: Preliminary result Updated: 03/25/19 1054 Specimen: Body Fluid from Vertebrae, Thoracic AFB Smear Result No Acid Fast Bacilli Seen Comment: Performed by [facility] [address] [place] [address] Culture, Fungus, Smear [[id number]] Collected: 03/24/19 151 Order Status: Completed Lab Status: Preliminary result Updated: 03/25/19 1039 Specimen: Body Fluid from Vertebrae, Thoracic CALCOFLUOR No fungal elements seen Comment: Performed by [facility] [address] [place] [address] Culture, Blood [[id number]] Collected: 03/23/19 2333 Order Status: Completed Lab Status: Final result Updated: 03/28/19 2352 Specimen: Blood Culture No growth after 5 days incubation. Culture, Blood [[id number]] Collected: 03/23/19 2255 Order Status: Completed Lab [...] this chart may have been created with Meebler voice recognition software. Occasi onal wrong-word or [...] 03/31/2019 5:42 PM PDTPatient left with family, [facility] supplies and i nstructions received before discharge and RX's filled at outpt pharmacy. VSS, ambulating wit h SBA, A&O x4, accepting of discharge. Dialysis completed this AM. Pain controlled with q4 o xy, LD 1400. Home health will f/u tomorrow. AVS reviewed and sent with patient, verbalized u nderstanding. Merry Hess MSW - 03/31/2019 11:05 AM PDTSOCIAL WORK PLAN: Home with [facility] NEXT STEPS: 1. Pt to follow up with [facility] 2. [facility] to follow up with pt at dc INTERVENTION: SW spoke with [facility], pt has a $2.50 out of pocket cost weekly, pt is agreeable to pay for this. Therefore pt will dc today with [facility]. SW provided [facility] with hard script for IV abx. SW faxed over HH order to [facility], SW faxed over IV vanco script to [facility]. [facility] notified of pt's dc home. notified. [facility] to meet with pt later this afternoon for teach. SW provided pt with 3 gas cards to assist with transportation. No further dc needs identified. SW received call from [facility] HD clinic that they cannot provide IV Vanco as Vanco h as not been consigned by Utility Inspector that has privileges in [place]. IV Vanco will now be done b y [facility], [address] faxed over hard script to [facility]ie. They will have both IV Abx ready and will teach pt shortly. No further dc needs identified. CONTACTS: Yina La: sister India Tilley: sister [place] Transportation: [place] Medicaid Transportation fax: [phone] [facility]: [phone] fax: [phone] [facility] [phone] [facility]: [phone] [facility]: [phone] [facility] FAX: [phone] aray Michelle Taylor - 03/31/2019 10:12 AM PDT Patient: Estefani Tilley Date of : 1945 Admit Date: 03/24/2019 Date of Service: 03/31/2019 PCP: Francisca Womack PA-C Hospital Day: Hospital Day: 8 Hospital Course: 73-year-old female with history of ESRD on hemodialysis, hypertension, type 2 diabetes, hyp othyroidism, chronic anemia, hyperlipidemia with a history of stroke transferred from [facility] for evaluation of T11-T12 lesion noted on [...] to go to SNF ([facility] in [place], [place] - of which has accepted her [...] dialysis patient - has OP clinic in [place] already Macrocytic anemia likely secondary to-likely anemia [...] hoping to arrange home IV antibiotics through [facility]. Awaiting to see if insurance will cover [...] mg/dL Final Comment: Performed by [facility] [address] [facility] [place] [address] 03/30/2019 21:14 200 (H) 65 - 99 mg/dL Final Comment: Performed by [facility] [address] [facility] [place] [address] 03/30/2019 17:46 111 (H) 65 - 99 mg/dL Final Comment: Performed by [facility] [address] [facility] [place] [address] 12/09/2018 18:05 113 (H) 70 - 109 [...] Tilley 73 y.o. 1945 Med. Record Number: [id number] Date of admission: 03/24/2019 Patient admitted with [...] from the [facility]. Pharmacy Progress Note VANCOMYCIN PER PHARMACY [...] Nunez MD - 03/30/2019 9:45 PM PDT [facility] INPATIENT ROUNDING NOTE Date of Service: 03/30/2019 Rounding Physician: Randy Corrigan MD Patient Name: Estefani Tilley : 1945 Medical Record: [id number] Hospital Summary: Estefani Tilley is a 73 [...] Corrigan MD, 03/30/2019, 21:45 ettler, Nan Tony, SHAREPOINT TRAINER - 03/30/2019 2:34 PM PDT SOCIAL WORK D/C PLAN:DC home with [facility] providing IV-ABX and [facility] providing picc care and lab draws vs [facility] NEXT STEPS: -SW will need to follow up with [facility] regarding providing IV-ABX to pt. -SW will need to follow up with [facility] regarding providing picc care and lab draws. -SW will need to follow up with [facility] regarding having pt receive vanco do [...] INTERVENTION:ROBIN spoke with pt regarding acceptance to [facility]. Pt is now wanting to go home with IV-ABX. ROBIN spoke with [facility]. They go out to [place], [place] and have openings for nursing care. Referral faxed to [facility]. Pt is amenable to using [facility] for IV-ABX. SW spoke with CANDIE liasion who will run pt's be nefits to see if she can DC home with IV-ABX. Pt states that [facility] can provide teach to her son to help administer IV-ABX. SW left message for [facility] to see if they can provide vanco dose to pt at [facility] on Wednesday, Wednesday and Wednesday if pt is able to go home. Pt states that she does dialysis on Wednesday, Wednesday and Wednesday from 12:00-4:00. SW received phone call from [facility]. They have accepted pt for admission if [...] if pt is going to go to [facility] SNF. ASSESSMENT/CHART REVIEW:73 yr old femalewith a history of ESRD on hemodialysis, hypertens ion, type 2 diabetes, hypothyroidism,chronic anemia,hyperlipidemia, hx of stroke [facility]-T12 lesion noted on MRI concerning fo r osteomyelitis. SW met with pt's sister, Yina, and her cousin, Keri, who were waiting in pt's room while s he was in dialysis. SW will need to follow up with pt re: d/c planning. Pt's sister and cousin related that pt mostly lives at Yina's house outside [place], [place], but does not like to be tied down because she enjoys attending Samish festivals and many events. [facility]. Pt has a vehicle and is very independent. D/C TRANSPORT:Pt can be transported home or to [facility] via family in a private car. They will need gas cards to help pay for transportation. BARRIERS TO D/C:none CONTACTS: Yina La: sister India Tilley: sister [place] Transportation: [place] Transportation fax: [phone] [facility]: [phone] fax: [phone] [facility] [phone] [facility]: [phone] [facility]: [phone] [facility] FAX: [phone] Nan Cheney MSW - 03/30/2019 12:57 PM PDTSOCIAL WORK D/C PLAN:SNF: [facility] NEXT STEPS:Await bed availability INTERVENTION: ROBIN called and left message for Roneugene at [facility] regarding if they are willing to accept pt and to discuss transportation to and from dialysis. SW also called and left message for [place] Medicaid transportation regarding if they can transp ort pt to and from dialysis upon DC. Pt states that she goes to [facility] dialys is in [place], [place] on Wed, Wed, and Fridays from 12:00-4:00 pm. SW left message with [facility] regarding if there was any way that they may also be able to help with transportation to and from dialysis while pt is in rehab and to ensure that pt still has her chair time scheduled. [facility] is only open M on, Wednesday and Wednesday. ASSESSMENT/CHART REVIEW:73 yr old femalewith a history of ESRD on hemodialysis, hypertens ion, type 2 diabetes, hypothyroidism,chronic anemia,hyperlipidemia, hx of stroke [facility] noted on MRI concerning fo r osteomyelitis. ROBIN met with pt's sister, Yina, and her cousin, Keri, who were waiting in pt's room while s he was in dialysis. ROBIN will need to follow up with pt re: d/c planning. Pt's sister and cousin related that pt mostly lives at Yina's house outside [place], [place], but does not like to be tied down because she enjoys attending Samish festivals and many events. She does at [facility] weekly. Pt has a vehicle and is very independent. D/C TRANSPORT:tbd BARRIERS TO D/C:none CONTACTS: Yina La: sister India Tilley: sister [place] Transportation: [place] Transportation fax: [phone] [facility]: [phone] fax: [phone] [facility] [phone] [facility]: [phone] signed by JENNIFER Xavier at 03/30 1:09 [...] a history of stroke transferred from [facility] for evaluation of T11-T12 lesion [...] dialysis patient - has OP clinic in [place] already ---> will need SW to help [...] SNF - awaiting to hear back from [facility], in [place], [place] regarding possible acceptance there. Medically ready [...] Single Lumen 03/24/19 2143 Left Lateral Forearm okuk-uze-zpivlb daniel ter system 20 gauge;1 1/4 in [...] - 99 mg/dL Final Comment: Performed by [facility] [address] [place] [address] 03/29/2019 21:09 157 (H) 65 - 99 mg/dL Final Comment: Performed by [facility] [address] [place] [address] 03/29/2019 18:50 91 65 - 99 mg/dL Final Comment: Performed by [facility] [address] [place] [address] 12/09/2018 18:05 113 (H) 70 - 109 [...] this chart may have been created with Meebler voice recognition software. Occasi onal wrong-word or sound-alike substitutions may have occurred due to the inherent mckeon itations of voice recognition software. Please read the chart carefully and recognize, using context, where these substitutions have occurred esus Whitney MD - 03/30/2019 7:15 AM PDT . Infectious Diseases Progress Note Pt. Name/Age/: Estefani Tilley 73 y.o. 1945 Med. Record Number: [id number] Date of admission: 03/24/2019 Patient admitted with [...] wishful of Monitoring Requirements [facility] Suicide Policy [facility] Suicide Risk/Telesitter Screening Utilizing this rating scale, [...] 03/29/2019 4:18 PM PDTSOCIAL WORK D/C PLAN:SNF: [facility] NEXT STEPS:Await bed availability INTERVENTION: SW called [...] anemia,hyperlipidemia, hx of stroke [facility] noted on MRI concerning fo r osteomyelitis. SW met with pt's sister, Yina, and her cousin, Keri, who were waiting in pt's room while s he was in dialysis. SW will need to follow up with pt re: d/c planning. Pt's sister and cousin related that pt mostly lives at Yina's house outside [place], [place], but does not like to be tied down because she enjoys attending Samish festivals and many events. She does at [facility] dialysis weekly. Pt has a vehicle and is very independent. D/C TRANSPORT:tbd BARRIERS TO D/C:none CONTACTS: Yina La: sister India Tilley: sister [place] Medicaid Transportation: [facility]: [phone] fax: [phone] [facility] [phone] signed by JENNIFER Contreras at 03/29/2019 4:20 PM Randy Yu MD - 03/29/2019 12:32 PM PDT [facility] INPATIENT ROUNDING NOTE Date of Service: 03/29/2019 Rounding Physician: Randy Corrigan MD Patient Name: Estefani Tilley : 1945 Medical Record: [id number] Hospital Summary: Estefani Tilley is a 73 [...] with a history of stroke transferred from [facility] for evaluation of T11-T12 lesion noted on [...] awaiting to hear from [facility], in [place] regarding possible acceptance. May be able [...] dialysis patient - has OP clinic in [place] already ---> will need SW to help [...] SNF - awaiting to hear back from [facility], in [place], [place] regarding possible acceptance there. Could possibly [...] Single Lumen 03/24/19 2143 Left Lateral Forearm xubu-nfd-txstxs daniel ter system 20 gauge;1 1/4 in [...] - 99 mg/dL Final Comment: Performed by [facility] [address] [place] [address] 03/28/2019 21:06 144 (H) 65 - 99 mg/dL Final Comment: Performed by [facility] [address] [place] [address] 03/28/2019 11:22 119 (H) 65 - 99 mg/dL Final Comment: Performed by [facility] [address] [place] [address] 12/09/2018 18:05 113 (H) 70 - 109 [...] this chart may have been created with Meebler voice recognition software. Occasi onal wrong-word or [...] Tilley 73 y.o. 1945 Med. Record Number: [id number] Date of admission: 03/24/2019 Patient admitted with [...] Carolina Restrepo RN - 03/28/2019 7:08 PM [id number] - Report called to Sanjuanita GONZALEZ. Pt's belongings . I pad and I phone w/ chargers as well as pt's purse, and shoes, and shirt and pants all sent with her to [address] [place] [address]. Pt had been sitting up eating dinner. [...] with a history of stroke transferred from [facility] for evaluation of T11-T12 lesion noted on [...] Single Lumen 03/24/19 2143 Left Lateral Forearm bhfb-zsx-faqsyz daniel ter system 20 gauge;1 1/4 in [...] - 99 mg/dL Final Comment: Performed by [facility] [address] [place] [address] 03/28/2019 07:09 75 65 - 99 mg/dL Final Comment: Performed by [facility] [address] [place] [address] 03/27/2019 20:38 109 (H) 65 - 99 mg/dL Final Comment: Performed by [facility] [address] [place] [address] 12/09/2018 18:05 113 (H) 70 - 109 [...] this chart may have been created with Meebler voice recognition software. Occasi onal wrong-word or sound-alike substitutions may have occurred due to the inherent mckeon itations of voice recognition software. Please read the chart carefully and recognize, using context, where these substitutions have occurred Cordell Mcgarry, [facility] - 03/28/2019 2:57 PM PDTSOCIAL WORK D/C PLAN: SNF: [facility] NEXT STEPS: Await bed availability INTERVENTION: On-going dc planning. Rec'd update from [facility]. They confirm they have r ec'd clinical notes and are currently reviewing. SW will follow. ASSESSMENT/CHART REVIEW:73 yr old femalewith a history of ESRD on hemodialysis, hypertens ion, type 2 diabetes, hypothyroidism,chronic anemia,hyperlipidemia, hx of stroke [facility]-T12 lesion noted on MRI concerning fo r osteomyelitis. SW met with pt's sister, Yina, and her cousin, Keri, who were waiting in pt's room while s he was in dialysis. SW will need to follow up with pt re: d/c planning. Pt's sister and co usin related that pt mostly lives at Yina's house outside [place], [place], but does not like to be tied down because she enjoys attending Samish festivals and many events. She does atten d dialysis weekly. Pt has a vehicle and is very independent. D/C TRANSPORT: tbd BARRIERS TO D/C: none CONTACTS: Yina La: sister India Tilley: sister [facility]: [phone] fax: [phone] [place] [phone] illum, Mario Alberto morales MD - 03/28/2019 7:34 AM PDTFormatting of this note might be different from the maynor rollins Infectious Diseases Progress Note Pt. Name/Age/: Estefani Jimenez Jarek 73 y.o. 1945 Med. Record Number: [id number] Date of admission: 03/24/2019 Patient admitted with [...] Electronically signed by: Carlos Jansen 03/28/2019 7:34 [facility] Katey Solis MD - 03/27/2019 8:58 PM PDT Patient: Estefani Tilley Date of : 1945 Admit Date: 03/24/2019 Date of Service: 03/27/2019 PCP: Francisca Womack PA-C Hospital Day: Hospital Day: 4 Hospital Course: 73-year-old female with history of ESRD on hemodialysis, hypertension, type 2 diabetes, hyp othyroidism, chronic anemia, hyperlipidemia with a history of stroke transferred from [facility] for evaluation of T11-T12 lesion noted on MRI concerning for osteomyeliti s. Infectious disease consulted. Status post aspiration from her thoracic spine, Gram stain negative, cultures pending. Rosemary ent started on empiric vancomycin and cefepime. Will need 6 weeks of IV antibiotics. 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 Pain management -trial of [...] Single Lumen 03/24/19 2143 Left Lateral Forearm cypk-ojn-gdrtlk daniel ter system 20 gauge;1 1/4 in [...] - 99 mg/dL Final Comment: Performed by [facility] [address] [place] [address] 03/27/2019 13:58 82 65 - 99 mg/dL Final Comment: Performed by [facility] [address] [place] [address] 03/27/2019 06:39 83 65 - 99 mg/dL Final Comment: Performed by [facility] [address] [place] [address] 12/09/2018 18:05 113 (H) 70 - 109 [...] this chart may have been created with Meebler voice recognition software. Occasi onal wrong-word or sound-alike substitutions may have occurred due to the inherent mckeon itations of voice recognition software. Please read the chart carefully and recognize, using context, where these substitutions have occurred arlin Diaz, [facility] - 03/27/2019 3:17 PM PDTSOCIAL WORK D/C PLAN: SNF: [facility] NEXT STEPS: Await bed availability INTERVENTION: Rec'd call from Emili at [facility]. She states the contracted f acility near pt's home is [facility]. Spoke with pt and with sister India. Referral and (-) Pasrr sent to [facility]. Copy of Pasrr placed in light chart with request to file into jos rds. SW will follow. ASSESSMENT/CHART REVIEW:73 yr old femalewith a history of ESRD on hemodialysis, hypertens ion, type 2 diabetes, hypothyroidism,chronic anemia,hyperlipidemia, hx of stroke [facility] noted [...] be tied down because she enjoys attending Samish festivals and many events. She does atten d dialysis weekly. Pt has a vehicle and is very independent. D/C TRANSPORT: tbd BARRIERS TO D/C: none CONTACTS: Yina La: sister India Tilley: sister [facility]: [phone] fax: [phone] [place] [phone] Gregg Mcgarry [facility] - 03/27/2019 2:17 PM PDTFormatting of this [...] be tied down because she enjoys attending Samish festivals and many events. She does atten d dialysis weekly. Pt has a vehicle and is very independent. ASSESSMENT/CHART REVIEW:73 yr old femalewith a history of ESRD on hemodialysis, hypertens ion, type 2 diabetes, hypothyroidism,chronic anemia,hyperlipidemia, hx of stroke [facility] lesion noted on MRI concerning fo r osteomyelitis. D/C TRANSPORT: tbd BARRIERS TO D/C: none CONTACTS: Yina La Sister [phone] India Tilley Sister [phone] Chichi, Irish sexton, Fleet Administrator - 03/27/2019 1:33 PM PDTFormatting of this [...] Vancomycin Protocol Electronically signed by: Aimee Carroll, Fleet Administrator 03/27/2019 13:33Electronically si gned by Ray Joel, PharmD at 03/27/2019 2:04 PM PDT Associated attestation - Ray Joel PharmD - 03/27/2019 2:04 PM PDTI reviewed and agr ee with the assessment and plan. Ray Joel, PharmDeepa 03/27/2019 14:04 Randy Corrigan MD - 03/27/2019 10:52 AM PDT [facility] INPATIENT ROUNDING NOTE Date of Service: 03/27/2019 Rounding Physician: Randy Corrigan MD Patient Name: Estefani Tilley : 1945 Medical Record: [id number] Hospital Summary: Estefani Tilley is a 73 [...] Jarek 73 y.o. 1945 Med. Record Number: [id number] Date of admission: 03/24/2019 Patient admitted with [...] with a history of stroke transferred from [facility] for evaluation of T11-T12 lesion noted on [...] Single Lumen 03/24/19 2143 Left Lateral Forearm mxzg-bmi-ccxzvx daniel ter system 20 gauge;1 1/4 in [...] - 99 mg/dL Final Comment: Performed by [facility] [address] [place] [address] 03/26/2019 06:49 116 (H) 65 - 99 mg/dL Final Comment: Performed by [facility] [address] [place] [address] 03/25/2019 20:37 110 (H) 65 - 99 mg/dL Final Comment: Performed by [facility] [address] [place] [address] 12/09/2018 18:05 113 (H) 70 - 109 [...] this chart may have been created with Meebler voice recognition software. Occasi onal wrong-word or sound-alike substitutions may have occurred due to the inherent mckeon itations of voice recognition software. Please read the chart carefully and recognize, using context, where these substitutions have occurred Jose Gamez, Pharmacy R esident - 03/26/2019 10:52 AM PDTFormatting of this note might be different from the [facility] [facility] Progress Note VANCOMYCIN PER [...] Vancomycin Protocol Electronically signed by: Jose Menard, Fleet Administrator 03/26/2019 10:52 su, Randy Nunez MD - 03/26/2019 1 0:38 AM PDT [facility] INPATIENT ROUNDING NOTE Date of Service: 03/26/2019 Rounding Physician: Randy Corrigan MD Patient Name: Estefani Tilley : 1945 Medical Record: [id number] Hospital Summary: Estefani Tilley is a 73 [...] Tilley 73 y.o. 1945 Med. Record Number: [id number] Date of admission: 03/24/2019 Patient admitted with [...] with a history of stroke transferred from [facility] [place] for evaluation of T11-T12 lesion noted on [...] Single Lumen 03/24/19 2143 Left Lateral Forearm gppv-tcw-vkjycr daniel ter system 20 gauge;1 1/4 in [...] - 99 mg/dL Final Comment: Performed by [facility] [address] [place] [address] 03/25/2019 06:52 107 (H) 65 - 99 mg/dL Final Comment: Performed by [facility] [address] [place] [address] 03/24/2019 20:11 112 (H) 65 - 99 mg/dL Final Comment: Performed by [facility] [address] [place] [address] 12/09/2018 18:05 113 (H) 70 - 109 [...] this chart may have been created with Meebler voice recognition software. Occasi onal wrong-word or sound-alike substitutions may have occurred due to the inherent mckeon itations of voice recognition software. Please read the chart carefully and recognize, using context, where these substitutions have occurred su, Randy Nunez MD - 0 03/25/2019 1:47 PM PDT [facility] INPATIENT ROUNDING NOTE Date of Service: 03/25/2019 Rounding Physician: Randy Corrigan MD Patient Name: Estefani Tilley : 1945 Medical Record: [id number] Hospital Summary: Estefani Tilley is a 73 [...] pt mostly lives at Yina's house outside [facility], but does not like to be tied down because she enjoys attending Samish festivals and many events. She does atten d dialysis weekly. Pt has a vehicle and is very independent. ASSESSMENT/CHART REVIEW:73 yr old femalewith a history of ESRD on hemodialysis, hypertens ion, type 2 diabetes, hypothyroidism,chronic anemia,hyperlipidemia, hx of stroke [facility] noted on MRI concerning fo r osteomyelitis. D/C TRANSPORT: tbd BARRIERS TO D/C: none CONTACTS: Yina La Sister [phone] India Tilley Sister [phone] Carlos Gonzales M D - 03/25/2019 8:34 AM PDT Infectious Diseases Progress Note Pt. Name/Age/: Estefani Tilley 73 y.o. 1945 Med. Record Number: [id number] Date of admission: 03/24/2019 Patient admitted with [...] 8:34 [facility] Jose Gamez, Fleet Administrator - 03/24/2019 10:46 PM PDTFormatting of this [...] Vancomycin Protocol Electronically signed by: Jose Menard, Fleet Administrator 03/24/2019 22:46 Gladys Daugherty MSW - 9 [...] pt mostly lives at Yina's house outside [place], [place], but do es not like to be tied down because she enjoys attending Samish festivals and many events. She does attend dialysis weekly. Pt has a vehicle and is very independent. ASSESSMENT/CHART REVIEW:73 yr old female with a history of ESRD on hemodialysis, hypertensi on, type 2 diabetes, hypothyroidism, chronic anemia, hyperlipidemia, hx of stroke transferre d from [facility] for evaluation of T11-T12 lesion noted on MRI concerning for ost eomyelitis. D/C TRANSPORT: tbd BARRIERS TO D/C: none CONTACTS: Yina La Sister [phone] India Tilley Sister [phone] Katey Solis MD - 03/24/2019 3:53 PM PDTPatient seen and examined. Chart reviewed. Briefly, 73-year-old female with history of ESRD on hemodialysis, hypertension, type 2 diab etes, hypothyroidism, chronic anemia, hyperlipidemia with a history of stroke transferred [facility] [place] for evaluation of T11-T12 lesion noted on [...] not have any p raza, consider antidepressants. grizzly worker consulted for concerns for housing concerns [...] 1250 mg IV once given 03/23 @ 3973 at [facility]. 2. Target Trough: 15-20 mcg/ml [...] Procedure Component Value Units Date/Time Culture, Blood [[id number]] Collected: 03/23/192332 Order Status: Sent Lab Status: In process Updated: 03/23/192348 Specimen: Blood Culture, Blood [[id number]] Collected: 03/23/192254 Order Status: Sent Lab Status: [...] | [facility] | | | POC | [facility] [address], | | SACRED | | | | [place] [address] | | HEART | | | |Performed by [facility] [address], [place] [address] | | MEDICAL | | | | [...] Ave. | [place] | | | [facility] | | | | | LABORATORY [...] | RIMAE | | | POC | [facility] [address], | | SACRED | | | | [place] | | HEART | | | |Performed by [facility] [address], [place] [address] | | MEDICAL | | | | [...] + | BETH LIZ | [address] | [place] [address] | | | [facility] | | | [...] | | LABORATORY | | | | [facility] [address], | | CERNER | | | | [place] [address] | | | | + + + + + + + + | Specimen | + + | Blood specimen | | (specimen) | + + + + + + + | Performing | Address | City/State/Zipcode | Phone Number | | Organization | | | | + + + + + | BETH LIZ | [address] | [place] [address] | | | [facility] | | | | | LABORATORY [...] ENCE | | | Immature | by [facility] [address], | K/uL | SACRED | | | Granulocyte | [place] [address] | | HEART | | | s |Performed by [facility] [address], [place] [address] | | MEDICA L | | | [...] + | [facility]CRED | [address] | [place] [address] | | | [facility] | | | | | LABORATORY [...] by | | | | | | [facility] [address], | | | | | | [place] [address] | | | | + + + + + + + + | Specimen | + + | Blood specimen | | (specimen) | + + + + + + + | Performing | Address | City/State/Zipcode | Phone Number | | Organization | | | | + + + + + | BETH LIZ | [address] | [place] [address] | | | [facility] | | | | | LABORATORY [...] | | | POC | Performed by [facility] [address] | | SACREVANS | | | | [place] | | HEART | | | | [address] | | MEDICAL | | | | [...] + | BETH LIZ | [address] | [place] [address] | | | [facility] | | | | | LABORATORY [...] | | | POC | Performed by [facility] [address] | | SACRED [...] [address] | [place] [address] | | | HEART [facility] | | | | | [...] | | | POC | Performed by [facility] [address] | | SACRED | | | | [address] [place] | | HEART | | | | [address] | | MEDICAL | | | | [...] + | BETH LIZ | [address] | [place] [address] | | | [facility] | | | | | LABORATORY [...] | | | POC | Performed by [facility] [address] | | SACRED [...] [address] | [place] [address] | | | HEART [facility] | | | | | [...] PROVIDE NCE | | | | by [facility] [address], | | SACRED | | | | [place] [address] | | HEART | | | |Performed by [facility] [address], [place] [address] | | MEDICAL | | | | [...] + + | JIMRENUKA LIZ | [address] | [place] [address] | | | [facility] | | | | | YANY [...] LUIS CE | | | | by [facility] [address], | | SACRED | | | | [place] [address] | | HEART | | | |Performed by [facility] [address], [place] [address] | | MEDICAL | | | | [...] [address] | [place] [address] | | | [facility] | | | | | LABORATORY [...] | | LABORATORY | | | | [facility] [address], | | CERNER | | | | [place] [address] | | | | + + + + + + + + | Specimen | + + | Blood specimen | | (specimen) | + + + + + + + | Performing | Address | City/State/Zipcode | Phone Number | | Organization | | | | + + + + + | BETH LIZ | [address] | [place] [address] | | | [facility] | | | | | YANY [...] ENCE | | | Counted | by [facility] [address] [place] [address], | | SACRED | | | | [place] [address] | | HEART | | | |Performed by [facility] [address], [place] [address] | | MEDICA L | | | [...] + + | BETH LIZ | [address] | [place] [address] | | | [facility] | | | | | LABORATORY [...] | | | POC | Performed by [facility] [address] | | SACRED | | | | [address], [place] | | HEART | | | | [address] | | MEDICAL | | | | [...] [address] | [place] [address] | | | [facility] | [...] | PROVIDENCE | | | POC | [facility] [address] [facility] [address], | | SACRED | | | | [place] [address] | | HEART | | | |Performed by [facility] [address] [place] [address] | | MEDICAL | | | | [...] + | JIMRENUKA LIZ | [address] | [place] [address] | | | [facility] | | | | | LABORATORY [...] | | | POC | Performed by [facility] [address] | | SACRED | | | | [address] [place] | | HEART | | | | [address] | | MEDICAL | | | | [...] [address] | [place] [address] | | | [facility] | | | | | LABORATORY [...] AGUSTO | | | | [place] [address] | | HEART | | | |Performed by [facility] [address], [place] [address] | | MEDICAL | | | | [...] + + | BETH LIZ | [address] | [place] [address] | | | [facility]ICAL [facility]ENTER | [...] by | | | | | | [facility] [address], | | | | | | [place] [address] | | | | + + + + + + + + | Specimen | + + | Blood specimen | | (specimen) | + + + + + + + | Performing | Address | City/State/Zipcode | Phone Number | | Organization | | | | + + + + + | BETH LIZ | [address] | [place] [address] | | | [facility] | | | | | YANY [...] ENCE | | | Counted | by [facility] [address], | | SACRED | | | | [place] [address] | | HEART | | | |Performed by [facility] [address], [place] [address] | | MEDICA L | | | [...] | BETH LIZ | [address] [place] [address]. | [place] [address] | | | [facility] | | | | | LABORATORY [...] LUIS CE | | | | by [facility] [address], | | SACRED | | | | [place] [address] | | HEART | | | |Performed by [facility] [address], [place] [address] | | MEDICAL | | | | [...] SACRED | [address] | [place] [address] | | | [facility] | | | [...] | | LABORATORY | | | | [facility] [address], | | [place] | | | | [place] [address] | | | | + + + + + + + + | Specimen | + + | Blood specimen | | (specimen) | + + + + + + + | Performing | Address | City/State/Zipcode | Phone Number | | Organization | | | | + + + + + | JIMJOSE ADora LIZ | [address] | [place] [address] | | | [facility] | | | | | LABORATORY [...] | | | POC | Performed by [facility] [address] | | SACRED | | | | [address], [place] | | HEART | | | | [address] | | MEDICAL | | | | [...] [address] | [place] [address] | | | [facility] | [...] | | | POC | Performed by [facility] [address] | | SACRED | | | | [address] [place] | | HEART | | | | [address] | | MEDICAL | | | | [...] + | JIMJOSE ADora LIZ | [address] | [place] [address] | | | [facility] | | | | | LABORATORY [...] | PROVIDENCE | | | POC | [facility] [address], | | SACRED | | | | [place] [address] | | HEART | | | |Performed by [facility] [address] [facility] [address], [place] [address] | | MEDICAL | | | | [...] SACRED | [address] | [place] [address] | | | HEART [facility] | | | | | [...] | | LABORATORY | | | | [facility] [address], | | [place] | | | | [place] [address] | | | | + + + + + + + + | Specimen | + + | Blood specimen | | (specimen) | + + + + + + + | Performing | Address | City/State/Zipcode | Phone Number | | Organization | | | | + + + + + | BETH LIZ | [address] | [place] [address] | | | [facility] | | | | | LABORATORY [...] PROVIDE NCE | | | | by [facility] [address], | | SACRED | | | | [place] [address] | | HEART | | | |Performed by [facility] [address], [place] [address] | | MEDICAL | | | | [...] + + | BETH ILZ | [address] [facility] [address] | [place] [address] | | | [facility] | | | | | LABORATORY [...] | | | POC | Performed by [facility] [address] | | SACRED [...] | [place] | | | HEART [facility] | | | | | [...] | | | POC | Performed by [facility] [address] | | SACRED | | | | [address] [place] | | HEART | | | | [address] | | MEDICAL | | | | [...] + | BETH LIZ | [address] [facility] [address] | [place] [address] | | | [facility] | | | | | LABORATORY [...] | PROVIDENCE | | | POC | [facility] [address], | | SACRED | | | | [place] [address] | | HEART | | | |Performed by [facility] [address], [place] [address] | | MEDICAL | | | | [...] + + | BETH [facility] | [address] | [place], [place] | | | [facility] MEDICAL CENTER [...] | PROVIDENCE | | | POC | [facility] [address], | | SACRED | | | | [place] | | HEART | | | |Performed by [facility] [address], [place] | | MEDICAL | | | [...] + | BETH LIZ | [address] | [place] [address] | | | [facility] | | | | | LABORATORY [...] by | | | | | | [facility] [address], | | | | | | [place] [address] | | | | + + + + + + + + | Specimen | + + | Blood specimen | | (specimen) | + + + + + + + | Performing | Address | City/State/Zipcode | Phone Number | | Organization | | | | + + + + + | BETH LIZ | [address] | [place] [address] | | | [facility] | | | | | LABORATORY [...] | | | POC | Performed by [facility] [address] | | SACRED [...] [address] | [place] [address] | | | HEART [facility] | | | | | [...] | | | POC | Performed by [facility] [address] | | SACRED | | | | [address] [place] | | HEART | | | | [address] | | MEDICAL | | | | [...] + | BETH LIZ | [address] | [place] [address] | | | [facility] | | | | | LABORATORY [...] | | | POC | Performed by [facility] [address] | | SACRED [...] [address] | [place] [address] | | | HEART [facility] | | | | | [...] PROVIDENCE | | | | Performed by [facility] [address] | | SACRED | | | | [address] [place] | | HEART | | | | [address] | | MEDICAL | | | | [...] + | BETH LIZ | [address] | [place] [address] | | | [facility] | | | | | LABORATORY [...] | | | POC | Performed by [facility] [address] | | SACRED | | | | [address], [place], [place] | | HEART | | | | [address] | | MEDICAL | | | | [...] SACRED | [address] | [place] [address] | | | [facility] MEDICAL CENTER | [...] by | | | | | | [facility] [address], | | | | | | [place] [address] | | | | + + + + + + + + | Specimen | + + | Blood specimen | | (specimen) | + + + + + + + | Performing | Address | City/State/Zipcode | Phone Number | | Organization | | | | + + + + + | BETH LIZ | [address] | [place] [address] | | | [facility] | | | | | LABORATORY [...] | | LABORATORY | | | | [facility] [address], | | [place] | | | | [place] [address] | | | | + + + + + + + + | Specimen | + + | Blood specimen | | (specimen) | + + + + + + + | Performing | Address | City/State/Zipcode | Phone Number | | Organization | | | | + + + + + | [facility] AE [facility] | [address] | [place] [address] | | | [facility] | | | | | LABORATORY [...] PROVIDE NCE | | | | by [facility] [address], | | SACRED | | | | [place] | | HEART | | | |Performed by [facility] [address] [facility] [address], [place] | | MEDICAL | | | [...] + + | [facility] | [address] | [place] | | | HE[facility] MEDICAL CENTER [...] CE | | | B-12 | by [facility] [address], | | SACRED | | | | [place] [address] | | HEART | | | |Performed by [facility] [address], [place] [address] | | MEDICAL | | | | [...] + + | [facility] | [address] | [place] [address] | | | [facility] | | | | | LABORATORY [...] by | | | | | | [facility] [address], | | | | | | [place] [address] | | | | + + + + + + + + | Specimen | + + | Blood specimen | | (specimen) | + + + + + + + | Performing | Address | City/State/Zipcode | Phone Number | | Organization | | | | + + + + + | BETH LIZ | [address] | [place] [address] | | | [facility] | | | | | LABORATORY [...] | | | POC | Performed by [facility] [address] | | SACRED | | | | [address] [place] | | HEART | | | | [address] | | MEDICAL | | | | [...] [address] | [place] [address] | | | [facility] | | | | | LABORATORY [...] | | | POC | Performed by [facility] [address] | | SACRED | | | | [address], [place] | | HEART | | | | [address] | | MEDICAL | | | | [...] + | BETH LIZ | [address] | [place] [address] | | | [facility] | | | | | LABORATORY [...] | | | POC | Performed by [facility] [address] | | SACRED | | | | [address] [place] | | HEART | | | | [address] | | MEDICAL | | | | [...] + + | BETH LIZ | [address] | [place] [address] | | | [facility] | | | | | LABORATORY [...] PROVIDE NCE | | | | by [facility] [address], | | SACRED | | | | [place] [address] | | HEART | | | |Performed by [facility] [address], [place] [address] | | MEDICAL | | | | [...] + + | JIMRENUKA AGUSTO | [address] | [place] [address] | | | [facility] | | | | | LABORATORY [...] LUIS CE | | | | by [facility] [address], | | SACRED | | | | [place] | | HEART | | | |Performed by [facility] [address], [place] | | MEDICAL | | | [...] SACREVANS | [address] | [place], [place] | | | HEART [facility] | | | | | [...] | | LABORATORY | | | | [facility] [address], | | [place] | | | | [place] [address] | | | | + + + + + + + + | Specimen | + + | Blood specimen | | (specimen) | + + + + + + + | Performing | Address | City/State/Zipcode | Phone Number | | Organization | | | | + + + + + | BETH LIZ | [address] | [place] [address] | | | [facility] | | | | | LABORATORY [...] | | | POC | Performed by [facility] [address] | | SACRED | | | | [address] [place] | | HEART | | | | [address] | | MEDICAL | | | | [...] + | BETH LIZ | [address] | [place] [address] | | | [facility] | | | | | LABORATORY [...] | | | POC | Performed by [facility] [address] | | SACRED [...] [address] | [place] [address] | | | HEART [facility] | | | | | [...] | SACRED | | | Total | [place] [address] [address] | | HEART | | | | [address] [place], [place] | | MEDICAL | | | | [phone] Daniel | | CENTER | | | | Lauro HOLDEN Ph:[phone] | | LABORATORY | | | | [...] | JIMJOSE ADora LIZ | [address] | [place] [address] | | | [facility] | | | | | LABORATORY [...] | SACRED | | | | by [facility] [address], | | HEART | | | | [place] [address] | | MEDICAL | | | | [...] [address] | [place] [address] | | | [facility]ICAL [facility]ENTER | [...] | SACRED | | | | by [facility] [address], | | HEART | | | | [place] | | MEDICAL | | | [...] SACRED | [address] | [place] | | | [facility] | | | [...] | MEDICAL | | | | by [facility] [address], | | [place] | | | | [place] [address] | | LABORATORY | | | |Performed by [facility] [address], [place] [address] | | CERNER | | | | [...] + + | BETH LIZ | [address] | [place] [address] | | | [facility] | | | | | LABORATORY [...] | | | POC | Performed by [facility] [address] | | SACRED | | | | [address], [place] | | HEART | | | | [address] | | MEDICAL | | | | [...] | JIMJOSE ADora DENVEREVANS | [address] [facility] [address] | [place] [address] | | | [facility] | | | | | LABORATORY [...] | | | POC | Performed by [facility] [address] | | SACRED | | | | [address] [place], [place] | | HEART | | | | [address] | | MEDICAL | | | | [...] + + | [facility] | [address] | [place] [address] | | | [facility]ICAL CENTER | [...] CENTER | | | | 3.5Performed by [facility] [address] | | LABORATORY | | | | [address], [place] | | [place] | | | | [address] | | | | + + + + + + + + | Specimen | + + | Blood specimen | | (specimen) | + + + + + + + | Performing | Address | City/State/Zipcode | Phone Number | | Organization | | | | + + + + + | [facility] | [address] | [place] [address] | | | [facility] | | | | | LABORATORY [...] | | | Immature | Performed by [facility] [address] | K/uL | SACRED | | | Granulocyte | [address] [place] | | HEART | | | s | [phone] | | MEDICAL | | | | [...] | JIMJOSE ADora LIZ | [address] [facility] [address] | [place] [address] | | | [facility] | | | | | LABORATORY [...] | | LABORATORY | | | | [facility] [address], | | [place] | | | | [place] [address] | | | | + + + + + + + + | Specimen | + + | Blood specimen | | (specimen) | + + + + + + + | Performing | Address | City/State/[facility] | Phone Number | | Organization | | | | + + + + + | BETH LIZ | [address] | [place] [address] | | | [facility] | | | | | LABORATORY [...] | | | First dose on [facility] 03/30/19 at 1130 | | AM [...] scheduled: AC, NPO, Daytime | | | 6536-5418 Use NIGHT DOSE for | | | doses scheduled: HS, 3AM, | | | Nighttime 0574-0231 If the BG is | | | [...]
--- OUTSIDE RECORDS SUMMARY | ~2019-07-27 | XMS | Encounter Summary ---
Demographics + + + | Address | [address] | | | [place] [address] | + + + | Home Phone [...] Author | [facility] | | | and [place] | + + + | Organization | [facility] | | | and [place] | + + + | Address | Unknown | + + + | Phone | Unavailable | + + + Support + + + + + | Name | Relationship | Address | Phone | + + + + + | India Tilley | ECON | [address] | | | | | [place], [place] | | | | | [address] | | + + + + + | Yina La | ECON | Unknown | | + + + + + | Yina Peterson | ECON | Unknown | | + + + + + | Leatha Casillas | ECON | Unknown | | + + + + + Care Team Providers + +------+ + | Care Adjunct Psychology Instructor Name | Role | Phone | + +------+ + PCP | Unavailable | + +------+ + Encounter Details +--------+ + + + + | Date | Type | Department | Care Team | Description | +--------+ + + + + | 11/08/ | Imaging | [facility] | Provider, | | | 2018 | Exam | [facility] | [address] | | | | | IMAGING | [address] | | | | | [phone] | [place] [address] | | +--------+ + + + + [...] for comparison only - no result from [place]. | [facility] | + + + + +---------+ + + | Performing | Address | City/State/Zipcode | Phone Number | | Organization | | | | + +---------+ + + | [facility] | | | | + +---------+ + + documented in this encounter Visit Diagnoses Not on filedocumented in this encounter"
--- OUTSIDE RECORDS SUMMARY | ~2019-07-27 | XMS | Encounter Summary ---
Demographics + + + | Address | [address] | | | [place] [address] | + + + | Home Phone [...] Author | [facility] | | | and [place] | + + + | Organization | [facility] | | | and [place] | + + + | Address | Unknown | + + + | Phone | Unavailable | + + + Support + + + + + | Name | Relationship | Address | Phone | + + + + + | India Tilley | ECON | [id number] | | | | | [place], [place] | | | | | [address] | | + + + + + | Yina La | ECON | Unknown | | + + + + + | Yina Peterson | ECON | Unknown | | + + + + + | Leatha Casillas | ECON | Unknown | | + + + + + Care Team Providers + +------+ + | Care Funeral Car Chauffeur Name | Role | Phone | + +------+ + PCP | Unavailable | + +------+ + Reason for Visit +--------+ + | Reason | Comments | +--------+ + | Other | | +--------+ + Encounter Details +--------+ + + + + | Date | Type | Department | Care Team | Description | +--------+ + + + + | 06/01/ | Telephone | [facility] | Gopi Muñoz | Other | | 2019 | | NEPHROLOGY [address] | M, DO [address] | | | | | [facility] [address] | [place], [facility] [address] | | | | | [place], [place] | [place] | | | | | [address] | [id number] | | | | | [phone] | | | +--------+ + + + [...]
--- OUTSIDE RECORDS SUMMARY | ~2019-07-27 | XMS | Encounter Summary ---
Demographics + + + | Address | [address] | | | [place] [address] | + + + | Home Phone [...] Author | [facility] | | | and [place] | + + + | Organization | [facility] | | | and [place] | + + + | Address | Unknown | + + + | Phone | Unavailable | + + + Support + + + + + | Name | Relationship | Address | Phone | + + + + + | India Tilley | ECON | [id number] | | | | | [place], [place] | | | | | [address] | | + + + + + | Yina La | ECON | Unknown | | + + + + + | Yina Peterson | ECON | Unknown | | + + + + + | Leatha Casillas | ECON | Unknown | | + + + + + Care Team Providers + +------+ + | Care Account Support Manager Name | Role | Phone | + +------+ + PCP | Unavailable | + +------+ + Encounter Details +--------+ + + + + | Date | Type | Department | Care Team | Description | +--------+ + + + + | 12/19/ | Hospital | [facility] | Patricia, | | | 2007 - | Encounter | [facility] | Venkatesh Forte MD [address] | | | | | [place] [address] | [facility] | | | 01/10/ | | [place] | [place] [address] | | | 2007 | | [address] | [phone] | | | | | [phone] | | | +--------+ + + + [...]
--- OUTSIDE RECORDS SUMMARY | ~2019-07-27 | XMS | Encounter Summary ---
Demographics + + + | Address | [address] | | | [place] [address] | + + + | Home Phone [...] | [facility] | | | and Kamaljitana | + + + | Organization | [facility] | | | and [place] | + + + | Address | Unknown | + + + | Phone | Unavailable | + + + Support + + + + + | Name | Relationship | Address | Phone | + + + + + | India Tilley | ECON | [address] | | | | | [place], [place] | | | | | [address] | | + + + + + | Yina La | ECON | Unknown | | + + + + + | Yina Peterson | ECON | Unknown | | + + + + + | Leatha Casillas | ECON | Unknown | | + + + + + Care Team Providers + +------+ + | Care Director Of Labor Relations Name | Role | Phone | + [...] | (Fax) | | | | | [phone] | | | | | | [phone] | | | +--------+---------+ + + + [...] completion of IV abx Follow Up Appointments: [address] [address] [facility] [address] [facility] [place] [id number] [facility] [address] [phone] Discharge Disposition: Home with Home Health Consultants This Admission: ID, Nephrology Hospital Course: 73-year-old female with history of ESRD on hemodialysis, hypertension, type 2 diabetes, hyp othyroidism, chronic anemia, hyperlipidemia with a history of stroke transferred from [facility] for evaluation of T11-T12 lesion noted on [...] had planned to go to SNF [facility] in [place], [place] - of which has accepted her [...] dialysis days after dialysis Osteomyelitis/Discitis of T11, [id number] -MRI spine 03/23/19: "mild paravertebral soft tissue [...] dialysis patient - has OP clinic in [place] already Macrocytic anemia likely secondary to-likely anemia [...] Value Units Date/Time Culture, Aerobic + Anaerobic [[id number]] Collected: 03/24/19 1514 Order Status: Completed Lab Status: Final result Updated: 03/29/1918 Specimen: Body Fluid from Vertebrae, Thoracic FINAL REPORT -- No Growth No anaerobes isolated Gram Stain Few Neutrophils No squamous epithelial cells seen No organisms seen Comment: Performed by [facility] [address] [place] [address] Gram Stain [[id number]] Collected: 03/24/19 151 Order Status: Canceled Lab Status: No result Updated: 03/24/191514 Specimen: Body Fluid from Vertebrae, Thoracic Culture, AFB Smear [[id number]] Collected: 03/24/191513 Order Status: Completed Lab Status: Preliminary result Updated: 03/25/19 1054 Specimen: Body Fluid from Vertebrae, Thoracic AFB Smear Result No Acid Fast Bacilli Seen Comment: Performed by [facility] [address] [place] [address] Culture, Fungus, Smear [[id number]] Collected: 03/24/19 151 Order Status: Completed Lab Status: Preliminary result Updated: 03/25/19 1039 Specimen: Body Fluid from Vertebrae, Thoracic CALCOFLUOR No fungal elements seen Comment: Performed by [facility] [address] [place] [address] Culture, Blood [[id number]] Collected: 03/23/19 2333 Order Status: Completed Lab Status: Final result Updated: 03/28/19 2352 Specimen: Blood Culture No growth after 5 days incubation. Culture, Blood [[id number]] Collected: 03/23/19 2255 Order Status: Completed Lab [...] this chart may have been created with [employer] voice recognition software. Occasi onal wrong-word or [...] 03/31/2019 5:42 PM PDTPatient left with family, [facility] and i nstructions received before discharge and RX's filled at outpt pharmacy. VSS, ambulating wit h SBA, A&O x4, accepting of discharge. Dialysis completed this AM. Pain controlled with q4 o xy, LD 1400. Home health will f/u tomorrow. AVS reviewed and sent with patient, verbalized u nderstanding. Merry Hess MSW - 03/31/2019 11:05 AM PDTSOCIAL WORK PLAN: Home with [facility] NEXT STEPS: 1. Pt to follow up with [facility] 2. [facility] to follow up with pt at dc INTERVENTION: SW spoke with [facility], pt has a $2.50 out of pocket cost weekly, pt is agreeable to pay for this. Therefore pt will dc today with [facility]. SW provided [facility] with hard script for IV abx. SW faxed over HH order to [facility], SW faxed over IV vanco script to [facility]. [facility] notified of pt's dc home. notified. [facility] to meet with pt later this afternoon for teach. SW provided pt with 3 gas cards to assist with transportation. No further dc needs identified. SW received call from [facility] clinic that they cannot provide IV Vanco as Vanco h as not been consigned by [facility] that has privileges in [place]. IV Vanco will now be done b y [facility], [address] faxed over hard script to [facility]. They will have both IV Abx ready and will teach pt shortly. No further dc needs identified. CONTACTS: Yina La: sister India Tilley: sister [place] Medicaid Transportation: [place] Medicaid Transportation fax: [phone] [facility]: [phone] fax: [phone] [place] [phone] [facility]: [phone] [facility]: [phone] [facility] FAX: [phone] aray Michelle Taylor - 03/31/2019 10:12 AM PDT Patient: Estefani Tilley Date of : 1945 Admit Date: 03/24/2019 Date of Service: 03/31/2019 PCP: Francisca Womack PA-C Hospital Day: Hospital Day: 8 Hospital Course: 73-year-old female with history of ESRD on hemodialysis, hypertension, type 2 diabetes, hyp othyroidism, chronic anemia, hyperlipidemia with a history of stroke transferred from [facility] for evaluation of T11-T12 lesion noted on [...] to go to SNF ([facility] in [place], [place] - of which has accepted her [...] dialysis patient - has OP clinic in [place] already Macrocytic anemia likely secondary to-likely anemia [...] hoping to arrange home IV antibiotics through [facility]. Awaiting to see if insurance will cover [...] - 99 mg/dL Final Comment: Performed by [place] [address] [facility] [place] [address] 03/30/2019 21:14 200 (H) 65 - 99 mg/dL Final Comment: Performed by [place] [address] [facility] [place] [address] 03/30/2019 17:46 111 (H) 65 - 99 mg/dL Final Comment: Performed by [place] [address] [address] [facility] [place] [address] 12/09/2018 18:05 113 (H) 70 - 109 [...] Tilley 73 y.o. 1945 Med. Record Number: [id number] Date of admission: 03/24/2019 Patient admitted with [...] signed by: Jesus Whitney, 03/31/2019 8:26 [facility] Robb Phillips, PharmD - 03/31/2019 7:25 AM PDTFormatting of this note might be different from the [facility] nal. Pharmacy Progress Note VANCOMYCIN PER PHARMACY [...] Nunez MD - 03/30/2019 9:45 PM PDT [facility] INPATIENT ROUNDING NOTE Date of Service: 03/30/2019 Rounding Physician: Randy Corrigan MD Patient Name: Estefani Tilley : 1945 Medical Record: [id number] Hospital Summary: Estefani Tilley is a 73 y.o. female with a PMHx of ESRD, HTN, Dm type 2, hypothyroidism, HLd, CVA who is under the care of Dr Muñoz at [facility] who dialyzes MWF admitted with possible [...] Corrigan MD, 03/30/2019, 21:45 ettler, Nan Tony, PAD TUFTER - 03/30/2019 2:34 PM PDT SOCIAL WORK D/C PLAN:DC home with [facility] providing IV-ABX and [facility] providing picc care and lab draws vs [facility] NEXT STEPS: -SW will need to follow up with [facility] regarding providing IV-ABX to pt. -SW will need to follow up with [facility] regarding providing picc care and lab draws. -SW will need to follow up with [facility] regarding having pt receive vanco do se while at dialysis center if pt is to go home with IV-ABX -SW will need to follow up with [facility] if pt is unable to go home with IV-ABX rega ridng pt's DC -SW will need to fax SNF orders, scripts and PASRR to [facility] if pt is unable to go home -SW will need to provide gas cards to pt's family for transportation home. INTERVENTION:ROBIN spoke with pt regarding acceptance to [place]. Pt is now wanting to go home with IV-ABX. ROBIN spoke with [facility]. They go out to [place], [place] and have openings for nursing care. Referral faxed to [facility]. Pt is amenable to using [facility] for IV-ABX. SW spoke with CANDIE liasion who will run pt's be nefits to see if she can DC home with IV-ABX. Pt states that [facility] can provide teach to her son to help administer IV-ABX. SW left message for [facility] to see if they can provide vanco dose to pt at [facility] on Wednesday, Wednesday and Wednesday if pt is able to go home. Pt states that she does dialysis on Wednesday, Wednesday and Wednesday from 12:00-4:00. SW received phone call from [place]. They have accepted pt for admission if [...] if pt is going to go to [place] SNF. ASSESSMENT/CHART REVIEW:73 yr old femalewith a history of ESRD on hemodialysis, hypertens ion, type 2 diabetes, hypothyroidism,chronic anemia,hyperlipidemia, hx of stroke [facility] of T[facility]-T12 lesion noted on MRI concerning fo r osteomyelitis. SW met with pt's sister, Yina, and her cousin, Keri, who were waiting in pt's room while s he was in dialysis. SW will need to follow up with pt re: d/c planning. Pt's sister and cousin related that pt mostly lives at Yina's house outside [place], [place], but does not like to be tied down because she enjoys attending [place] festivals and many events. She does at [facility] dialysis weekly. Pt has a vehicle and is very independent. D/C TRANSPORT:Pt can be transported home or to [place] via family in a private car. They will need gas cards to help pay for transportation. BARRIERS TO D/C:none CONTACTS: Yina La: sister India Tilley: sister [place] Transportation: [place] Medicaid Transportation fax: [phone] [facility]: [phone] fax: [phone] [place] [phone] [facility]: [phone] [facility]: [phone] [facility] FAX: [phone] Nan Cheney MSW - 03/30/2019 12:57 PM PDTSOCIAL WORK D/C PLAN:SNF: [place] NEXT STEPS:Await bed availability INTERVENTION: ROBIN called and left message for Roneugene at [facility] regarding if they are willing to accept pt and to discuss transportation to and from dialysis. SW also called and left message for [place] Medicaid transportation regarding if they can transp ort pt to and from dialysis upon DC. Pt states that she goes to [facility] dialys is in [place], [place] on Wed, Wed, and Fridays from 12:00-4:00 pm. SW left message with [facility] regarding if there was any way that they may also be able to help with transportation to and from dialysis while pt is in rehab and to ensure that pt still has her chair time scheduled. [facility] is only open M on, Wednesday and Wednesday. ASSESSMENT/CHART REVIEW:73 yr old femalewith a history of ESRD on hemodialysis, hypertens ion, type 2 diabetes, hypothyroidism,chronic anemia,hyperlipidemia, hx of stroke [facility] noted on MRI concerning fo r osteomyelitis. ROBIN met with pt's sister, Yina, and her cousin, Keri, who were waiting in pt's room while s he was in dialysis. ROBIN will need to follow up with pt re: d/c planning. Pt's sister and cousin related that pt mostly lives at Yina's house outside [place], [place], but does not like to be tied down because she enjoys attending [place] festivals and many events. She does at [facility] weekly. Pt has a vehicle and is very independent. D/C TRANSPORT:tbd BARRIERS TO D/C:none CONTACTS: Yina La: sister India Tilley: sister [place] Transportation: [place] Transportation fax: [phone] [facility]: [phone] fax: [phone] [place] [phone] [facility]: [phone] signed by JENNIFER Xavier at 03/30 1:09 [...] history of stroke transferred from [facility] for evaluation of T11-T12 lesion [...] dialysis patient - has OP clinic in [place] already ---> will need SW to help [...] - awaiting to hear back from [facility] [place], in [place] regarding possible acceptance there. Medically ready [...] Single Lumen 03/24/19 2143 Left Lateral Forearm cdbc-jmh-ogwpes daniel ter system 20 gauge;1 1/4 in [...] - 99 mg/dL Final Comment: Performed by [facility] [address] [place] [address] 03/29/2019 21:09 157 (H) 65 - 99 mg/dL Final Comment: Performed by [facility] [address] [place] [address] 03/29/2019 18:50 91 65 - 99 mg/dL Final Comment: Performed by [facility] [address] [place] [address] 12/09/2018 18:05 113 (H) 70 - 109 [...] this chart may have been created with [employer] voice recognition software. Occasi onal wrong-word or sound-alike substitutions may have occurred due to the inherent mckeon itations of voice recognition software. Please read the chart carefully and recognize, using context, where these substitutions have occurred esus Whitney MD - 03/30/2019 7:15 AM PDT . Infectious Diseases Progress Note Pt. Name/Age/: Estefani Tilley 73 y.o. 1945 Med. Record Number: [id number] Date of admission: 03/24/2019 Patient admitted with [...] signed by: Jesus Whitney, 03/30/2019 7:15 [facility] Mary Wade RN - 03/30/2019 6:16 [...] intention has depression wishful of Monitoring Requirements [facility] Suicide Policy [facility] Suicide Risk/Telesitter Screening Utilizing this rating [...] 4:18 PM PDTSOCIAL WORK D/C PLAN:SNF: [place] NEXT STEPS:Await bed availability INTERVENTION: SW called and spoke with admissions person at [facility], they are still discussing pt's [...] anemia,hyperlipidemia, hx of stroke [facility]12 lesion noted on MRI concerning fo r osteomyelitis. SW met with pt's sister, Yina, and her cousin, Keri, who were waiting in pt's room while s he was in dialysis. SW will need to follow up with pt re: d/c planning. Pt's sister and cousin related that pt mostly lives at Yina's house outside [place], [place], but does not like to be tied down because she enjoys attending [place] festivals and many events. She does at [facility] weekly. Pt has a vehicle and is very independent. D/C TRANSPORT:tbd BARRIERS TO D/C:none CONTACTS: Yina La: sister India Tilley: sister [place] Medicaid Transportation: [facility]: [phone] fax: [phone] [place] [phone] signed by JENNIFER Contreras at 03/29/2019 4:20 PM Randy Yu MD - 03/29/2019 12:32 PM PDT [facility] INPATIENT ROUNDING NOTE Date of Service: 03/29/2019 Rounding Physician: Randy Corrigan MD Patient Name: Estefani Tilley : 1945 Medical Record: [id number] Hospital Summary: Estefani Tilley is a 73 y.o. female with a PMHx of ESRD, HTN, Dm type 2, hypothyroidism, HLd, CVA who is under the care of Dr Muñoz at [facility] who dialyzes MWF admitted with possible [...] transferred from [facility] for evaluation of T11-T12 lesion noted on [...] awaiting to hear from [facility], in [place] regarding possible acceptance. May be able [...] dialysis patient - has OP clinic in [place] already ---> will need SW to help [...] - awaiting to hear back from [place], in [place] regarding possible acceptance there. Could possibly [...] Single Lumen 03/24/19 2143 Left Lateral Forearm jkou-prk-agkwhl daniel ter system 20 gauge;1 1/4 in [...] - 99 mg/dL Final Comment: Performed by [facility] [address] [place] [address] 03/28/2019 21:06 144 (H) 65 - 99 mg/dL Final Comment: Performed by [facility] [address] [place] [address] 03/28/2019 11:22 119 (H) 65 - 99 mg/dL Final Comment: Performed by [facility] [address] [place] [address] 12/09/2018 18:05 113 (H) 70 - 109 [...] this chart may have been created with [employer] voice recognition software. Occasi onal wrong-word or [...] Tilley 73 y.o. 1945 Med. Record Number: [id number] Date of admission: 03/24/2019 Patient admitted with [...] signed by: Jesus Whitney, 03/29/2019 7:35 [facility] zech, Carolina Restrepo RN - 03/28/2019 7:08 PM [id number] - Report called to Sanjuanita GONZALEZ. Pt's belongings . I pad and I phone w/ chargers as well as pt's purse, and shoes, and shirt and pants all sent with her to [address] [place] [address]. Pt had been sitting up eating dinner. [...] transferred from [facility] for evaluation of T11-T12 lesion noted on [...] Single Lumen 03/24/19 2143 Left Lateral Forearm lyqg-yac-uhbiyv daniel ter system 20 gauge;1 1/4 in [...] - 99 mg/dL Final Comment: Performed by [facility] [address] [place] [address] 03/28/2019 07:09 75 65 - 99 mg/dL Final Comment: Performed by [facility] [address] [place] [address] 03/27/2019 20:38 109 (H) 65 - 99 mg/dL Final Comment: Performed by [facility] [address] [place] [address] 12/09/2018 18:05 113 (H) 70 - 109 [...] this chart may have been created with [employer] voice recognition software. Occasi onal wrong-word or sound-alike substitutions may have occurred due to the inherent mckeon itations of voice recognition software. Please read the chart carefully and recognize, using context, where these substitutions have occurred Cordell Mcgarry, [facility] - 03/28/2019 2:57 PM PDTSOCIAL WORK D/C PLAN: SNF: [place] NEXT STEPS: Await bed availability INTERVENTION: On-going dc planning. Rec'd update from [place]. They confirm they have r ec'd clinical notes and are currently reviewing. SW will follow. ASSESSMENT/CHART REVIEW:73 yr old femalewith a history of ESRD on hemodialysis, hypertens ion, type 2 diabetes, hypothyroidism,chronic anemia,hyperlipidemia, hx of stroke [facility] of [facility]-T12 lesion noted on MRI concerning fo r osteomyelitis. SW met with pt's sister, Yina, and her cousin, Keri, who were waiting in pt's room while s he was in dialysis. SW will need to follow up with pt re: d/c planning. Pt's sister and co usin related that pt mostly lives at Yina's house outside [place], [place], but does not like to be tied down because she enjoys attending [place] festivals and many events. She does atten d dialysis weekly. Pt has a vehicle and is very independent. D/C TRANSPORT: tbd BARRIERS TO D/C: none CONTACTS: Yina La: sister India Tilley: sister [facility]: [phone] fax: [phone] [place] [phone] illum, Mario Alberto morales MD - 03/28/2019 7:34 AM PDTFormatting of this note might be different from the [facility] Infectious Diseases Progress Note Pt. Name/Age/: Estefani Jimenez Jarek 73 y.o. 1945 Med. Record Number: [id number] Date of admission: 03/24/2019 Patient admitted with [...] Electronically signed by: Carlos Jansen 03/28/2019 7:34 [facility] Katey Solis MD - 03/27/2019 8:58 PM PDT Patient: Estefani Tilley Date of : 1945 Admit Date: 03/24/2019 Date of Service: 03/27/2019 PCP: Francisca Womack PA-C Hospital Day: Hospital Day: 4 Hospital Course: 73-year-old female with history of ESRD on hemodialysis, hypertension, type 2 diabetes, hyp othyroidism, chronic anemia, hyperlipidemia with a history of stroke transferred from [facility] for evaluation of T11-T12 lesion noted on MRI concerning for osteomyeliti s. Infectious disease consulted. Status post aspiration from her thoracic spine, Gram stain negative, cultures pending. Rosemary ent started on empiric vancomycin and cefepime. Will need 6 weeks of IV antibiotics. 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 Nephrology following for maintenance hemodialysis. 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 Pain management -trial of lidocaine [...] Single Lumen 03/24/19 2143 Left Lateral Forearm frez-ayo-lijasf daniel ter system 20 gauge;1 1/4 in [...] - 99 mg/dL Final Comment: Performed by [facility] [address] [place] [address] 03/27/2019 13:58 82 65 - 99 mg/dL Final Comment: Performed by [facility] [address] [place] [address] 03/27/2019 06:39 83 65 - 99 mg/dL Final Comment: Performed by [facility] [address] [place] [address] 12/09/2018 18:05 113 (H) 70 - 109 [...] this chart may have been created with [employer] voice recognition software. Occasi onal wrong-word or sound-alike substitutions may have occurred due to the inherent mckeon itations of voice recognition software. Please read the chart carefully and recognize, using context, where these substitutions have occurred arlin Diaz, [facility] - 03/27/2019 3:17 PM PDTSOCIAL WORK D/C PLAN: SNF: [place] NEXT STEPS: Await bed availability INTERVENTION: Rec'd call from Emili at [facility]. She states the contracted f acility near pt's home is [place]. Spoke with pt and with sister India. Referral and (-) Pasrr sent to [facility]. Copy of Pasrr placed in light chart with request to file into jos rds. SW will follow. ASSESSMENT/CHART REVIEW:73 yr old femalewith a history of ESRD on hemodialysis, hypertens ion, type 2 diabetes, hypothyroidism,chronic anemia,hyperlipidemia, hx of stroke [facility] noted [...] be tied down because she enjoys attending [place] festivals and many events. She does atten d dialysis weekly. Pt has a vehicle and is very independent. D/C TRANSPORT: tbd BARRIERS TO D/C: none CONTACTS: Yina La: sister India Tilley: sister [facility]: [phone] fax: [phone] [place] [phone] Gregg Mcgarry [facility] - 03/27/2019 2:17 PM PDTFormatting of [...] be tied down because she enjoys attending [place] festivals and many events. She does atten d dialysis weekly. Pt has a vehicle and is very independent. ASSESSMENT/CHART REVIEW:73 yr old femalewith a history of ESRD on hemodialysis, hypertens ion, type 2 diabetes, hypothyroidism,chronic anemia,hyperlipidemia, hx of stroke [facility]-T12 lesion noted on MRI concerning fo r osteomyelitis. D/C TRANSPORT: tbd BARRIERS TO D/C: none CONTACTS: Yina La Sister [phone] India Tilley Sister [phone] Chichi, Irish sexton, State Epidemiologist - 03/27/2019 1:33 PM PDTFormatting of this [...] Vancomycin Protocol Electronically signed by: Aimee Carroll, State Epidemiologist 03/27/2019 13:33Electronically si gned by Ray Joel, PharmD at 03/27/2019 2:04 PM PDT Associated attestation - Ray Joel PharmD - 03/27/2019 2:04 PM PDTI reviewed and agr ee with the assessment and plan. Ray Joel, PharmDeepa 03/27/2019 14:04 Randy Corrigan MD - 03/27/2019 10:52 AM PDT [facility] INPATIENT ROUNDING NOTE Date of Service: 03/27/2019 Rounding Physician: Randy Corrigan MD Patient Name: Estefani Tilley : 1945 Medical Record: [id number] Hospital Summary: Estefani Tilley is a 73 y.o. female with a PMHx of ESRD, HTN, Dm type 2, hypothyroidism, HLd, CVA who is under the care of Dr Muñoz at [facility] who dialyzes MWF admitted with possible [...] Jarek 73 y.o. 1945 Med. Record Number: [id number] Date of admission: 03/24/2019 Patient admitted with [...] signed by: Carlos Jansen, 03/27/2019 7:10 [facility] Katey Solis MD - 03/26/2019 5:40 PM PDT Patient: Estefani Tilley Date of : 1945 Admit Date: 03/24/2019 Date of Service: 03/26/2019 PCP: Francisca Womack PA-C Hospital Day: Hospital Day: 3 Hospital Course: 73-year-old female with history of ESRD on hemodialysis, hypertension, type 2 diabetes, hyp othyroidism, chronic anemia, hyperlipidemia with a history of stroke transferred from [facility] [place] for evaluation of T11-T12 lesion noted on [...] Single Lumen 03/24/19 2143 Left Lateral Forearm tzvr-zup-dhprjh daniel ter system 20 gauge;1 1/4 in [...] - 99 mg/dL Final Comment: Performed by [facility] [address] [place] [address] 03/26/2019 06:49 116 (H) 65 - 99 mg/dL Final Comment: Performed by [facility] [address] [place] [address] 03/25/2019 20:37 110 (H) 65 - 99 mg/dL Final Comment: Performed by [facility] [address] [place] [address] 12/09/2018 18:05 113 (H) 70 - 109 [...] this chart may have been created with [employer] voice recognition software. Occasi onal wrong-word or sound-alike substitutions may have occurred due to the inherent mckeon itations of voice recognition software. Please read the chart carefully and recognize, using context, where these substitutions have occurred Jose Gamez, Pharmacy R esident - 03/26/2019 10:52 AM PDTFormatting of this note might be different from the [facility] Progress Note VANCOMYCIN PER PHARMACY [...] Vancomycin Protocol Electronically signed by: Jose Menard, State Epidemiologist 03/26/2019 10:52 su, Randy Nunez MD - 03/26/2019 1 0:38 AM PDT [facility] INPATIENT ROUNDING NOTE Date of Service: 03/26/2019 Rounding Physician: Randy Corrigan MD Patient Name: Estefani Tilley : 1945 Medical Record: [id number] Hospital Summary: Estefani Tilley is a 73 y.o. female with a PMHx of ESRD, HTN, Dm type 2, hypothyroidism, HLd, CVA who is under the care of Dr Muñoz at [facility] who dialyzes MWF admitted with possible osteo disccitis t11/t12 ASSESSMENT AND PLAN 1. ESRD/HD dependent Access is LUE AVF working well No indications for HD today Usually dialyzes MWF at [facility] Hd tommorow 2. Anemia Hg at [...] Tilley 73 y.o. 1945 Med. Record Number: [id number] Date of admission: 03/24/2019 Patient admitted with [...] signed by: Carlos Jansen, 03/26/2019 8:03 [facility] Katey Solis MD - 03/25/2019 3:50 PM PDT Patient: Estefani Tilley Date of : 1945 Admit Date: 03/24/2019 Date of Service: 03/25/2019 PCP: Francisca Womack PA-C Hospital Day: Hospital Day: 2 Hospital Course: 73-year-old female with history of ESRD on hemodialysis, hypertension, type 2 diabetes, hyp othyroidism, chronic anemia, hyperlipidemia with a history of stroke transferred from [facility] [place] for evaluation of T11-T12 lesion noted on [...] Single Lumen 03/24/19 2143 Left Lateral Forearm nigo-trk-hqdxob daniel ter system 20 gauge;1 1/4 in [...] - 99 mg/dL Final Comment: Performed by [facility] [address] [place] [address] 03/25/2019 06:52 107 (H) 65 - 99 mg/dL Final Comment: Performed by [facility] [address] [place] [address] 03/24/2019 20:11 112 (H) 65 - 99 mg/dL Final Comment: Performed by [facility] [address] [place] [address] 12/09/2018 18:05 113 (H) 70 - 109 [...] this chart may have been created with [employer] voice recognition software. Occasi onal wrong-word or sound-alike substitutions may have occurred due to the inherent mckeon itations of voice recognition software. Please read the chart carefully and recognize, using context, where these substitutions have occurred su, Randy Nunez MD - 0 03/25/2019 1:47 PM PDT [facility] INPATIENT ROUNDING NOTE Date of Service: 03/25/2019 Rounding Physician: Randy Corrigan MD Patient Name: Estefani Tilley : 1945 Medical Record: [id number] Hospital Summary: Estefani Tilley is a 73 y.o. female with a PMHx of ESRD, HTN, Dm type 2, hypothyroidism, HLd, CVA who is under the care of Dr Muñoz at [facility] who dialyzes MWF admitted with possible osteo disccitis t11/t12 ASSESSMENT AND PLAN 1. ESRD/HD dependent Access is LUE AVF working well No indications for HD today Usually dialyzes MWF at [facility] She is below her EDW an [...] with any questions Electronically signed by: Trace oCrrigan MD, 03/25/2019, 13:47 an Saldivar MSW - [...] pt mostly lives at Yina's house outside [facility], [place], but does not like to be tied down because she enjoys attending [place] festivals and many events. She does atten d dialysis weekly. Pt has a vehicle and is very independent. ASSESSMENT/CHART REVIEW:73 yr old femalewith a history of ESRD on hemodialysis, hypertens ion, type 2 diabetes, hypothyroidism,chronic anemia,hyperlipidemia, hx of stroke [facility] lesion noted on MRI concerning fo r osteomyelitis. D/C TRANSPORT: tbd BARRIERS TO D/C: none CONTACTS: Yina La Sister [phone] India Tilley Sister [phone] Carlos Gonzales M D - 03/25/2019 8:34 AM PDT Infectious Diseases Progress Note Pt. Name/Age/: Estefani Tilley 73 y.o. 1945 Med. Record Number: [id number] Date of admission: 03/24/2019 Patient admitted with [...] signed by: Carlos Jansen, 03/25/2019 8:34 [facility] Jose Gamez, State Epidemiologist - 03/24/2019 10:46 PM PDTFormatting of this [...] Vancomycin Protocol Electronically signed by: Jose Menard, State Epidemiologist 03/24/2019 22:46 Gladys Daugherty MSW - 9 [...] pt mostly lives at Yina's house outside [place], [place], but do es not like to be tied down because she enjoys attending [place] festivals and many events. She does attend dialysis weekly. Pt has a vehicle and is very independent. ASSESSMENT/CHART REVIEW:73 yr old female with a history of ESRD on hemodialysis, hypertensi on, type 2 diabetes, hypothyroidism, chronic anemia, hyperlipidemia, hx of stroke transferre d from [facility] for evaluation of T11-T12 lesion noted on MRI concerning for ost eomyelitis. D/C TRANSPORT: tbd BARRIERS TO D/C: none CONTACTS: Yina La Sister [phone] India Tilley Sister [phone] Katey Solis MD - 03/24/2019 3:53 PM PDTPatient seen and examined. Chart reviewed. Briefly, 73-year-old female with history of ESRD on hemodialysis, hypertension, type 2 diab etes, hypothyroidism, chronic anemia, hyperlipidemia with a history of stroke transferred [place] [facility] [place] for evaluation of T11-T12 lesion noted on [...] not have any p raza, consider antidepressants. family worker consulted for concerns for housing concerns [...] 1250 mg IV once given 03/23 @ 0809 at [facility]. 2. Target Trough: 15-20 [...] Procedure Component Value Units Date/Time Culture, Blood [[id number]] Collected: 03/23/192332 Order Status: Sent Lab Status: In process Updated: 03/23/192348 Specimen: Blood Culture, Blood [[id number]] Collected: 03/23/192254 Order Status: Sent Lab Status: [...] | [facility] | | | POC | [facility] [address], | | SACRED | | | | [place] [address] | | HEART | | | |Performed by [facility] [address], [place] [address] | | MEDICAL | | | | [...] Ave. | [place] | | | [facility] | | | | | LABORATORY [place] [...] | RIMAE | | | POC | [facility] [address], | | SACRED | | | | [place] | | HEART | | | |Performed by [facility] [address], [place] [address] | | MEDICAL | | | | [...] + + | [facility] | [address] | [place] [address] | | | [facility] | | | | [...] | | LABORATORY | | | | [facility] [address] [place], | | CERNER | | | | [place] [address] | | | | + + + + + + + + | Specimen | + + | Blood specimen | | (specimen) | + + + + + + + | Performing | Address | City/State/Zipcode | Phone Number | | Organization | | | | + + + + + | [facility] | [address] | [place] [address] | | | [facility] | | | | | LABORATORY CERNER [...] ENCE | | | Immature | by [facility] [address], | K/uL | SACRED | | | Granulocyte | [place] [address] | | HEART | | | s |Performed by [facility] [address], [place] [address] | | MEDICA L | | | [...] + + | [facility] SACRED | [address] | [place] [address] | | | [facility] | | | | | LABORATORY CERNER [...] by | | | | | | [facility] [address], | | | | | | [place] [address] | | | | + + + + + + + + | Specimen | + + | Blood specimen | | (specimen) | + + + + + + + | Performing | Address | City/State/Zipcode | Phone Number | | Organization | | | | + + + + + | [facility] | [address] | [place] [address] | | | [facility] | | | | | LABORATORY CERNER [...] | | | POC | Performed by [facility] [address] | | SACREVANS | | | | [place] | | HEART | | | | [address] | | MEDICAL | | | | [...] + + | [facility] | [address] | [place] [address] | | | [facility] | | | | | LABORATORY JESI [...] | | | POC | Performed by [facility] [address] | | SACRED [...] [address] | [place] [address] | | | HEART [facility] | | | | | LABORATORY [...] | | | POC | Performed by [facility] [address] | | SACRED | | | | [address] [place] | | HEART | | | | [address] | | MEDICAL | | | | [...] + + | [facility] | [address] | [place] [address] | | | [facility] | | | | | LABORATORY JESI [...] | | | POC | Performed by [facility] [address] | | SACRED [...] [address] | [place] [address] | | | HEART [facility] | | | | | LABORATORY [...] PROVIDE NCE | | | | by [facility] [address], | | SACRED | | | | [place] [address] | | HEART | | | |Performed by [facility] [address], [place] [address] | | MEDICAL | | | | [...] + + | JIMRENUKA LIZ | [address] | [place] [address] | | | [facility] | | | | | YANY DENNISON [...] LUIS CE | | | | by [facility] [address], | | SACRED | | | | [place] [address] | | HEART | | | |Performed by [facility] [address], [place] [address] | | MEDICAL | | | | [...] [address] | [place] [address] | | | [facility] | | | | | LABORATORY CERNER [...] | | LABORATORY | | | | [facility] [address], | | CERNER | | | | [place] [address] | | | | + + + + + + + + | Specimen | + + | Blood specimen | | (specimen) | + + + + + + + | Performing | Address | City/State/Zipcode | Phone Number | | Organization | | | | + + + + + | [facility] | [address] | [place] [address] | | | [facility] | | | | | YANY DENNISON [...] ENCE | | | Counted | by [facility] [address] [place] [address], | | SACRED | | | | [place] [address] | | HEART | | | |Performed by [facility] [address], [place] [address] | | MEDICA L | | | [...] + + | [facility] | [address] | [place] [address] | | | [facility] | | | | | LABORATORY CERNER [...] | | | POC | Performed by [facility] [address] | | SACRED | | | | [address] [place], [place] | | HEART | | | | [address] | | MEDICAL | | | | [...] [address] | [place] [address] | | | [facility] | [...] | PROVIDENCE | | | POC | [facility] [address] [facility] [place], | | SACRED | | | | [place] [address] | | HEART | | | |Performed by [facility] [address] [place], [place] [address] | | MEDICAL | | | | [...] + + | JIMRENUKA LIZ | [address] | [place] [address] | | | [facility] | | | | | LABORATORY JESI [...] | | | POC | Performed by [facility] [address] | | SACRED | | | | [address] [place] | | HEART | | | | [address] | | MEDICAL | | | | [...] [address] | [place] [address] | | | [facility] | | | | | LABORATORY JESI [...] AGUSTO | | | | [place] [address] | | HEART | | | |Performed by [facility] [address], [place] [address] | | MEDICAL | | | | [...] + + | [facility] | [address] | [place] [address] | | | [facility]ICAL [facility] | [...] by | | | | | | [facility] [address], | | | | | | [place] [address] | | | | + + + + + + + + | Specimen | + + | Blood specimen | | (specimen) | + + + + + + + | Performing | Address | City/State/Zipcode | Phone Number | | Organization | | | | + + + + + | [facility] | [address] | [place] [address] | | | [facility] | | | | | YANY DENNISON [...] ENCE | | | Counted | by [facility] [address], | | SACRED | | | | [place] [address] | | HEART | | | |Performed by [facility] [address], [place] [address] | | MEDICA L | | | [...] + | [facility] | [address] [place] [address]. | [place] [address] | | | [facility] | | | | | LABORATORY CERNER [...] LUIS CE | | | | by [facility] [address], | | SACRED | | | | [place] [address] | | HEART | | | |Performed by [facility] [address], [place] [address] | | MEDICAL | | | | [...] SACRED | [address] | [place] [address] | | | [facility] | | | | [...] | | LABORATORY | | | | [facility] [address], | | [place] | | | | [place] [address] | | | | + + + + + + + + | Specimen | + + | Blood specimen | | (specimen) | + + + + + + + | Performing | Address | City/State/Zipcode | Phone Number | | Organization | | | | + + + + + | [facility]SE ADora [facility] | [address] | [place] [address] | | | [facility] | | | | | LABORATORY JESI [...] | | | POC | Performed by [facility] [address] | | SACRED | | | | [address], [place] | | HEART | | | | [address] | | MEDICAL | | | | [...] [address] | [place] [address] | | | [facility] | [...] | | | POC | Performed by [facility] [address] | | SACRED | | | | [address] [place] | | HEART | | | | [address] | | MEDICAL | | | | [...] + | [facility] ADora [facility] | [address] | [place] [address] | | | [facility] | | | | | LABORATORY CERNER [...] | PROVIDENCE | | | POC | [facility] [address], | | SACRED | | | | [place] [address] | | HEART | | | |Performed by [facility] [address] [facility] [address], [place] [address] | | MEDICAL | | | | [...] SACRED | [address] | [place] [address] | | | HEART [facility] | | | | | LABORATORY [...] | | LABORATORY | | | | [facility] [address], | | [place] | | | | [place] [address] | | | | + + + + + + + + | Specimen | + + | Blood specimen | | (specimen) | + + + + + + + | Performing | Address | City/State/Zipcode | Phone Number | | Organization | | | | + + + + + | [facility] | [address] | [place] [address] | | | [facility] | | | | | LABORATORY CERNER [...] PROVIDE NCE | | | | by [facility] [address], | | SACRED | | | | [place] [address] | | HEART | | | |Performed by [facility] [address], [place] [address] | | MEDICAL | | | | [...] + | [facility] | [address] [facility] [address] | [place] [address] | | | [facility] | | | | | LABORATORY JESI [...] | | | POC | Performed by [facility] [address] | | SACRED [...] | [place] | | | HEART [facility] | | | | | LABORATORY [...] | | | POC | Performed by [facility] [address] | | SACRED | | | | [address] [place] | | HEART | | | | [address] | | MEDICAL | | | | [...] + | [facility] | [address] [facility] [address] | [place] [address] | | | [facility] | | | | | LABORATORY CERNER [...] | PROVIDENCE | | | POC | [facility] [address], | | SACRED | | | | [place] [address] | | HEART | | | |Performed by [facility] [address], [place] [address] | | MEDICAL | | | | [...] + + | BETH [facility] | [address] | [place], [place] | | | [facility] [...] | PROVIDENCE | | | POC | [facility] [address], | | SACRED | | | | [place] | | HEART | | | |Performed by [facility] [address], [place] | | MEDICAL | | | [...] + + | [facility] | [address] | [place] [address] | | | [facility] | | | | | LABORATORY JESI [...] by | | | | | | [facility] [address], | | | | | | [place] [address] | | | | + + + + + + + + | Specimen | + + | Blood specimen | | (specimen) | + + + + + + + | Performing | Address | City/State/Zipcode | Phone Number | | Organization | | | | + + + + + | [facility] | [address] | [place] [address] | | | [facility] | | | | | LABORATORY JESI [...] | | | POC | Performed by [facility] [address] | | SACRED [...] [address] | [place] [address] | | | HEART [facility] | | | | | LABORATORY [...] | | | POC | Performed by [facility] [address] | | SACRED | | | | [address] [place] | | HEART | | | | [address] | | MEDICAL | | | | [...] + + | [facility] | [address] | [place] [address] | | | [facility] | | | | | LABORATORY JESI [...] | | | POC | Performed by [facility] [address] | | SACRED [...] [address] | [place] [address] | | | HEART [facility] | | | | | LABORATORY [...] PROVIDENCE | | | | Performed by [facility] [address] | | SACRED | | | | [address] [place], [place] | | HEART | | | | [address] | | MEDICAL | | | | [...] + + | [facility] | [address] | [place] [address] | | | [facility] | | | | | LABORATORY JESI [...] | | | POC | Performed by [facility] [address] | | SACRED | | | | [address], [place], [place] | | HEART | | | | [address] | | MEDICAL | | | | [...] SACRED | [address] | [place] [address] | | | [facility] | [...] by | | | | | | [facility] [address], | | | | | | [place] [address] | | | | + + + + + + + + | Specimen | + + | Blood specimen | | (specimen) | + + + + + + + | Performing | Address | City/State/Zipcode | Phone Number | | Organization | | | | + + + + + | [facility] | [address] | [place] [address] | | | [facility] | | | | | LABORATORY JESI [...] | | LABORATORY | | | | [facility] [address], | | JESI | | | | [place] [address] | | | | + + + + + + + + | Specimen | + + | Blood specimen | | (specimen) | + + + + + + + | Performing | Address | City/State/Zipcode | Phone Number | | Organization | | | | + + + + + | [facility] | [address] | [place] [address] | | | [facility] | | | | | LABORATORY CERMICA [...] PROVIDE NCE | | | | by [facility] [address], | | SACRED | | | | [place] | | HEART | | | |Performed by [facility] [address] [facility] [address], [place] | | MEDICAL | | | [...] + + | [facility] | [address] | [place], [place] | | | [facility]ICAL [facility]ENTER [...] CE | | | B-12 | by [facility] [address], | | SACRED | | | | [place] [address] | | HEART | | | |Performed by [facility] [address], [place] [address] | | MEDICAL | | | | [...] + + | [facility] | [address] | [place] [address] | | | [facility] | | | | | LABORATORY CERNER [...] by | | | | | | [facility] [address], | | | | | | [place] [address] | | | | + + + + + + + + | Specimen | + + | Blood specimen | | (specimen) | + + + + + + + | Performing | Address | City/State/Zipcode | Phone Number | | Organization | | | | + + + + + | [facility] | [address] | [place] [address] | | | [facility] | | | | | LABORATORY JESI [...] | | | POC | Performed by [facility] [address] | | SACRED | | | | [address] [place] | | HEART | | | | [address] | | MEDICAL | | | | [...] [address] | [place] [address] | | | [facility] | | | | | LABORATORY CERNER [...] | | | POC | Performed by [facility] [address] | | SACRED | | | | [address], [place] | | HEART | | | | [address] | | MEDICAL | | | | [...] + + | [facility] | [address] | [place] [address] | | | [facility] | | | | | LABORATORY JESI [...] | | | POC | Performed by [facility] [address] | | SACRED | | | | [address] [place] | | HEART | | | | [address] | | MEDICAL | | | | [...] + + | [facility] | [address] | [place] [address] | | | [facility] | | | | | LABORATORY JESI [...] PROVIDE NCE | | | | by [facility] [address], | | SACRED | | | | [place] [address] | | HEART | | | |Performed by [facility] [address], [place] [address] | | MEDICAL | | | | [...] + + | JIMRENUKA AGUSTO | [address] | [place] [address] | | | [facility] | | | | | LABORATORY JESI [...] LUIS CE | | | | by [facility] [address], | | SACRED | | | | [place], [place] | | HEART | | | |Performed by [facility] [address], [place] | | MEDICAL | | | [...] SACREVANS | [address] | [place], [place] | | | HEART [facility] | | | | | LABORATORY [...] | | LABORATORY | | | | [facility] [address], | | JESI | | | | [place] [address] | | | | + + + + + + + + | Specimen | + + | Blood specimen | | (specimen) | + + + + + + + | Performing | Address | City/State/Zipcode | Phone Number | | Organization | | | | + + + + + | [facility] | [address] | [place] [address] | | | [facility] | | | | | LABORATORY JESI [...] | | | POC | Performed by [facility] [address] | | SACRED | | | | [address] [place] | | HEART | | | | [address] | | MEDICAL | | | | [...] + + | [facility] | [address] | [place] [address] | | | [facility] | | | | | LABORATORY JESI [...] | | | POC | Performed by [facility] [address] | | SACRED [...] [address] | [place] [address] | | | HEART [facility] | | | | | LABORATORY [...] | SACRED | | | Total | [place] [address] [address] | | HEART | | | | [address] [place], [place] | | MEDICAL | | | | [phone] | | CENTER | | | | Lauro HOLDEN Ph:[phone] | | LABORATORY | | | | [...] + | JIMJOSE ADora [facility] | [address] | [place] [address] | | | [facility] | | | | | LABORATORY JESI [...] | SACRED | | | | by [facility] [address], | | HEART | | | | [place] [address] | | MEDICAL | | | | [...] [address] | [place] [address] | | | [facility] | [...] | SACRED | | | | by [facility] [address], | | HEART | | | | [place] | | MEDICAL | | | [...] SACRED | [address] | [place], [place] | | | [facility] | | | | [...] | MEDICAL | | | | by [facility] [address], | | [place] | | | | [place] [address] | | LABORATORY | | | |Performed by [facility] [address], [place] [address] | | CERNER | | | | [...] + + | BETH LIZ | [address] | [place] [address] | | | [facility] | | | | | LABORATORY CERNER [...] | | | POC | Performed by [facility] [address] | | SACRED | | | [address], [place] | | HEART | | | | [id number] | | MEDICAL | | | | [...] | JIMJOSE ADora DENVEREVANS | [address] | [place] [address] | | | [facility] | | | | | LABORATORY JESI [...] | | | POC | Performed by [facility] [address] | | SACRED | | | | [address] [place], [place] | | HEART | | | | [id number] | | MEDICAL | | | | [...] + + | [facility] | [address] | [place] [address] | | | [facility] | [...] CENTER | | | | 3.5Performed by [facility] [address] | | LABORATORY | | | | [address] [place] | | [place] | | | | [address] | | | | + + + + + + + + | Specimen | + + | Blood specimen | | (specimen) | + + + + + + + | Performing | Address | City/State/Zipcode | Phone Number | | Organization | | | | + + + + + | [facility] | [address] | [place] [address] | | | [facility] | | | | | LABORATORY CERNER [...] | | | Immature | Performed by [facility] [address] | K/uL | SACRED | | | Granulocyte | [address] [place] | | HEART | | | s | [id number] | | MEDICAL | | [...] | [facility] | [address] | [place] [address] | | | [facility] | | | | | LABORATORY JESI [...] | | LABORATORY | | | | [facility] [address], | | [place]ES[place] | | | | [place] [address] | | | | + + + + + + + + | Specimen | + + | Blood specimen | | (specimen) | + + + + + + + | Performing | Address | City/State/[facility] | Phone Number | | Organization | | | | + + + + + | [facility] | [address] | [place] [address] | | | [facility] | | | | | LABORATORY [place] [...] | | | | First dose on [facility] 03/30/19 at 1130 | | AM PDT [...] scheduled: AC, NPO, Daytime | | | [id number] Use NIGHT DOSE for | | | doses scheduled: HS, 3AM, | | | Nighttime [id number] If the BG is | | | [...]
--- OUTSIDE RECORDS SUMMARY | ~2019-07-27 | XMS | Encounter Summary ---
Demographics + + + | Address | [address] | | | [place] [address] | + + + | Home Phone [...] | Formerly [facility] | | | and Kamaljitana | + + + | Organization | [facility]ly [facility] | | | and [place] | + + + | Address | Unknown | + + + | Phone | Unavailable | + + + Support + + + + + | Name | Relationship | Address | Phone | + + + + + | India Tilley | ECON | [address] | | | | | [place], [place] | | | | | [address] | | + + + + + | Yina La | ECON | Unknown | | + + + + + | Yina Peterson | ECON | Unknown | | + + + + + | Leatha Casillas | ECON | Unknown | | + + + + + Care Team Providers + +------+ + | Care Enterprise Sales Person Name | Role | Phone | [...] | Services | CKD | Gary, | [place] | | | Required | | (chronic | MD Mayelin | [address] | | | | | kidney | [address] | [facility] | | | | | disease) | [facility] | [place], [place] | | | | | stage 5, GFR | [place], [place] | [address] | | | | | less than | [address] | Phone: | | | | | 15 ml/min | Phone: | [phone] | | | | | (HCC) Type | [phone] | Fax: | | | | | 2 DM with | Fax: | [phone] | | | | | CKD stage 5 | [phone] | | | | | | and [...] + + | 11/01/ | Hospital | [facility] | Gopi Muñoz | Hypoglycemia; | | 2018 - | Encounter | [facility] | M, DO [address] | Hypothermia, initial | | | | [address] | [address] | encounter; CKD | | 11/09/ | | [place] [address] | [place], [place] | (chronic kidney | | 2018 | | [phone] | [address] | disease) stage 5, | | | | | | GFR less than 15 | | | | | Rupal Laguna MD | ml/min ([facility]); | | | | | [address] | Essential | | | | | [place], [place] | hypertension; | | | | | [address] | Sepsis, due to | | | | | | unspecified organism | | | | | Nora Leo MD | (HCC); Uremia; | | | | | [address] [facility] | Controlled type 2 | | | | | [place] [address] | diabetes mellitus | | | | | [phone] | with stage 5 chronic | | | | | | kidney disease not | | | | | | on chronic dialysis, | | | | | | with long-term | | | | | | current use of | | | | | | insulin ([facility]); End | | | | | | stage renal disease | | | | | | ([facility]); Type 2 DM | | | | [...] dialysis | | | | | | ([facility]); Streptococcal | | | | | | bacteremia; Acute | | | | | | hemodialysis | | | | | | encounter ([facility]) | +--------+ + + + + Social [...] might be differ ent from the original. [place] HOSPITALIST DISCHARGE SUMMARY Pt. Name/Age/: Ara [...] insulin glargine 100 units/mL injection (vial) aka: [facility] COURSE: Please refer to the H&P for full details and the most recent rounding rounding (progress) n ote. In short this is a 72-year-old woman, history of hypertension, diabetes mellitus type 2 on insulin, chronic kidney disease of stage V, CAD, who presented to [facility] after be ing found down [...] evaluation. At time of arrival to send [facility], patient was feeling much better [...] n/a DISPOSITION AND DISCHARGE INSTRUCTIONS: Follow-up Information [facility] [place] On 11/10/2017. Why: 1:00pm Contact information: [address] [place] [id number] Follow up In 3 days. Francisca Womack PA-C In 3 days. Specialty: Internal Medicine Contact information: [address] [place] [address] Hemodialysis In 1 day. Contact information: Appointment at 1:30 PM Condition: Patient being discharged with condition improved and stable Diet: renal, carbohydrate controlled Greater than 30 minutes were spent on discharge and coordination of post-hospital care. Electronically signed by: Mayelin Vega MD, 11/09/2017 11:06 [facility] Portions of this chart may have been created with [employer] voice recognition software. Occasi onal wrong-word or sound-alike substitutions may have occurred due to the inherent mckeon itations of voice recognition software. Please read the chart carefully and recognize, using context, where these substitutions have occurred documented in this encounter Discharge Instructions AttachmentsThe following attachments cannot be sent through Care Everywhere.Balancing Calci um and Phosphorus, Kidney Disease (Uzbek)Hemodialysis (Uzbek)documented in this encounte r Medications at Time [...] + + +---------+ + + | Lancets [facility] | by Does not apply | | [...] Muñoz, DO - 11/09/2017 6:[address] [facility] [address] [place] [address] PROGRESS NOTE Pt. Name/Age/: Ara Tilley 72 y.o. 1945 Med. Record Number: [id number] Date of admission: 11/01/2017 NEPHROLOGY HPI - [...] 3. Complete 10 days total of AB's. [facility] Nora Headley MD - 11/09/2017 4:24 [...] and she agreed. Nikki was raised in [place] and in [place]. She has two brothers and two sisters, and h ad 4 children of her own. Her oldest child, daughter, two months ago. Nikki is gri eving her loss and teared up while talking about her. Her other children live in [facility] and one son has been in nursing home for 23 years. She hasn't seen him since he was arr ested and is hopeful she will get to see him next year, as he is schedule to be released at that time. 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 She has at least 4 ye ars post high school education and studied [employer]. In the years prior to [facility], she worked at [employer]. Nikki's mother had chronic kidney disease and [...] up and going to the [facility] [place] reservation in [place]. She must plan it out, and that feels antithetical to her nature. Ginger escamilla was present and attentive while she discussed her grief around losing her family member s and her lifestyle, offered supportive certified drug counselor. Chayo Ramirez RN - 11/09/2017 10:00 AM Cam GONZALEZ arrived at [facility]'s room around 0800 to begin [...] 11/08/2017 6:50 PM PSTThis provider, Palliative Care CASINO ENFORCEMENT AGENT, met briefly with "Nikki" Jose Raul rebecca [...] this note might be different from the [facility] [place] HOSPITALIST PROGRESS NOTE Patient: Ara Tilley : 1945: Age: 72 y.o. MedRec: [id number] Admission date: 11/01/2017 Hospital day # : [...] capsule 100 mg 100 mg Oral BID lOegario Peng MD 100 mg at 11/07/172051 [NOV [...] 100 mg 100 [facility] lomas MD 100 mg at [...] mg/m L 0.25 mg [employer] Director Of Mechanical Engineering Nora Leo MD [NOV Hold] labetalol (NORMODYNE) [...] HSQ FEN: renal Mayelin Vega 11/08/2017 11:50 [facility] Nora Headley MD - 11/08/2017 10:06 [...] might be different f rom the original. [facility] [place] HOSPITALIST PROGRESS NOTE Patient: Ara Tilley : 1945: Age: 72 y.o. 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 CAD- no signs of ACS, EKG RBBB, trop 0.03 at OSH -Continue aspirin, lipitor 4. Hypothyroidism -TSH WNL -Continue levothyroxine 5. HTN uncontrolled -Continue Labetalol and furosemide -restart losartan 25 mg daily PPX: HSQ FEN: renal Mayelin Vega 11/07/2017 12:57 [facility] Cordell Palmer MD - 11/07/2017 9:43 AM PSTFormatting of this note might be different from the maynor rollins [facility] NEPHROLOGY progress note Patient: Ara Tilley : [...] Darlin Moseley MD Electronically signed: 11/07/2017 9:43 [facility] NEPHROLOGY Olegario Keen M D - 11/06/2017 2:[address] [facility] [place] HOSPITALIST PROGRESS NOTE Patient: Ara Tilley : 1945: Age: 72 y.o. MedRec: [id number] Admission date: 11/01/2017 Hospital day # : [...] Procedure Component Value Units Date/Time Culture, Blood [[id number]] (Normal) Collected: 11/04/172121 Order Status: Completed Lab Status: Preliminary result Updated: 11/05/17930 Specimen: Blood from Line Culture No growth: Monitored continually by instrument for 5 days Culture, Blood [[id number]] (Normal) Collected: 11/04/17 2103 Order Status: Completed Lab Status: Preliminary result Updated: 11/05/17 0911 Specimen: Blood from Line Culture No growth: Monitored continually by instrument for 5 days Culture, Blood [[id number]] (Normal) Collected: 11/03/17 1506 Order Status: Completed [...] d in setting of active infection Joe micahud was initially on, but temp normalized. CXR [...] Oral BID PRN Olegario Peng 11/06/2017 14:15 [facility] Darlin Palmer M D - 11/06/2017 9:10 AM PST [facility] NEPHROLOGY progress note Patient: Ara Tilley : [...] Continuous Infusions: Heparin Infusion 200 Units/hr (11/06/17 4667) PRN Meds:acetaminophen, albumin, albuterol, bisacodyl, Hypoglycemia Management [...] Darlin Moseley MD Electronically signed: 11/06/2017 9:11 [facility] NEPHROLOGY Olegario Keen M D - 11/05/2017 2:08 PM PST [facility] [place] HOSPITALIST PROGRESS NOTE Patient: Ara Tilley : 1945: Age: 72 y.o. MedRec: [id number] Admission date: 11/01/2017 Hospital day # : [...] injection 1,500-6,000 Units 1,500-6,000 Units Intercatheter PRN Goip Muñoz, DO 2,800 Units at 11/04/17 2133 [...] Procedure Component Value Units Date/Time Culture, Blood [[id number]] (Normal) Collected: 11/04/172 Order Status: Completed Lab Status: Preliminary result Updated: 11/05/17 0931 Specimen: Blood from Line Culture No growth: Monitored continually by instrument for 5 days Culture, Blood [[id number]] (Normal) Collected: 11/04/172102 Order Status: Completed Lab Status: Preliminary result Updated: 11/05/17 0911 Specimen: Blood from Line Culture No growth: Monitored continually by instrument for 5 days Culture, Blood [[id number]] (Normal) Collected: 11/03/17 1506 Order Status: Completed Lab Status: Preliminary result Updated: 11/04/17 0311 Specimen: Blood from Peripheral Blood Culture No growth: Monitored continually by instrument for 5 days Culture, Blood [[id number]] (Abnormal) Collected: 11/03/17 0812 Order Status: Completed Lab Status: Preliminary result Updated: 11/05/17 0751 Specimen: Blood from Arm, Left Culture Positive Blood Culture (AA) Staphylococcus coagulase negative Comment: Identification and susceptibility to follow. Probable contaminant Gram Stain Result Gram positive cocci in clusters Comment: 2 of 4 bottles positive Culture, Respiratory, Lower, Smear [[id number]] Collected: 11/03/17 0727 Order Status: Completed Lab [...] Oral BID PRN Olegario Peng 11/05/2017 14:08 [facility] Darlin Palmer M D - 11/05/2017 1:53 PM PST [facility] NEPHROLOGY progress note Patient: Ara Tilley : [...] Darlin Moseley MD Electronically signed: 11/05/2017 13:53 [facility] NEPHROLOGY Gopi Mckenna , DO - 11/04/2017 6:[address] [facility] [address] [place] [address] PROGRESS NOTE Pt. Name/Age/: Ara Tilley 72 y.o. 1945 Med. Record Number: [id number] Date of admission: 11/01/2017 NEPHROLOGY HPI - [...] to high Inpt case load here at [facility]. 2. probable pyelonephritis?--Day #3 Ceftriaxone, Day [...] for coverage of both organisms, Q 48H. [facility] Queenie Hall RN - 11/04/2017 10:23 AM PSTPatient transferred from ICU into room 307. Oriented to room an d call light. Bed alarm set. Call light in place. Remains on 2L via nasal canula. Makes need s known. Amanda Keen MD - 11/04/2017 7:21 AM PSTFormatting of this note might be different from the origin al. [facility] [place] HOSPITALIST PROGRESS NOTE Patient: Ara Tilley : 1945: Age: 72 y.o. MedRec: [id number] Admission date: 11/01/2017 Hospital day # : [...] Procedure Component Value Units Date/Time Culture, Blood [[id number]] (Normal) Collected: 11/03/17 1506 Order Status: Completed Lab Status: Preliminary result Updated: 11/04/17 0311 Specimen: Blood from Peripheral Blood Culture No growth: Monitored continually by instrument for 5 days Culture, Blood [[id number]] (Normal) Collected: 11/03/17 0812 Order Status: Completed Lab Status: Preliminary result Updated: 11/03/17 2041 Specimen: Blood from Arm, Left Culture No growth: Monitored continually by instrument for 5 days Culture, Respiratory, Lower, Smear [[id number]] Collected: 11/03/17 0727 Order Status: Completed Lab Status: Preliminary result Updated: 11/03/17 1028 Specimen: Respiratory from Sputum, expectorated Gram Stain Result 3+ White Blood Cells 2+ Epithelial cells 2+ Gram positive cocci 2+ Gram positive bacilli 1+ Hyphael elements Influenza A and B RNA, NAAT [[id number]] (Normal) Collected: 11/02/17 1050 Order Status: Completed Lab Status: Final result Updated: 11/02/17 1125 Specimen: Respiratory from Nares Influenza A PCR Negative Influenza B PCR Negative Culture, Urine [[id number]] Collected: 11/02/17 0740 Order Status: Completed Lab Status: Preliminary result Updated: 11/03/17 1013 Specimen: Urine Culture >100,000 CFU/ml Lactose Fermenting Gram Negative Bacilli Comment: Identification and susceptibility to follow. Culture, Blood [[id number]] (Normal) Collected: 11/02/17 0024 Order Status: Completed Lab Status: Preliminary result Updated: 11/02/17 1241 Specimen: Blood from Peripheral Blood Culture No growth: Monitored continually by instrument for 5 days Culture, Blood [[id number]] (Abnormal) Collected: 11/02/17 0019 Order Status: Completed [...] 15:14 by Edison Short. Narrative: Culture, MRSA [[id number]] Collected: 11/01/17 2146 Order Status: Completed Lab [...] in chains -Repeat UA (+), urine culture >630715 GNB lactose fermenting -Continue ceftriaxone started 11/02, [...] Q30 Min PRN Olegario Peng 11/04/2017 7:21 [facility] Nick Aguillon, RN - 0 11/04/2017 1:06 AM PSTDialysis treatment started and Arterial pressures running in the -400s , trouble shooting ineffective, arterial and venous lines switched, pressures now -50s. Shama sarabia is running appropriately at this moment, will continue monitoring. Nick Guallpa Gopi Mckenna, DO - 11/03/2017 11:[address] [facility] [address] [place], [place] [id number] PROGRESS NOTE Pt. Name/Age/: Ara Tilley 72 y.o. 1945 Med. Record Number: [id number] Date of admission: 11/01/2017 NEPHROLOGY HPI - [...] anemia. 4. Encourage ambulation to minimize atelectasis. [facility] Olegario Keen MD - 11/03/2017 7:[address] [facility] [place] HOSPITALIST PROGRESS NOTE Patient: Ara Tilley : 1945: Age: 72 y.o. MedRec: [id number] Admission date: 11/01/2017 Hospital day # : [...] PH UA 6.0 5.0 - 8.0 Specific [place] 1.010 1.001 - 1.030 PROTEIN UA 100 [...] Date/Time Influenza A and B RNA, NAAT [[id number]] (Normal) Collected: 11/02/17 1050 Order Status: Completed Lab Status: Final result Updated: 11/02/17 1125 Specimen: Respiratory from Nares Influenza A PCR Negative Influenza B PCR Negative Culture, Urine [[id number]] Collected: 11/02/17 0740 Order Status: Sent Lab Status: In process Updated: 11/02/17 0758 Specimen: Urine Culture, Blood [[id number]] (Normal) Collected: 11/02/17 0024 Order Status: Completed Lab Status: Preliminary result Updated: 11/02/17 1241 Specimen: Blood from Peripheral Blood Culture No growth: Monitored continually by instrument for 5 days Culture, Blood [[id number]] (Abnormal) Collected: 11/02/17 0019 Order Status: Completed Lab Status: Preliminary result Updated: 11/02/17 1515 Specimen: Blood from Peripheral Blood Culture Positive Blood Culture (AA) Gram Stain Result Gram positive cocci in chains Comment: One of four Blood Culture bottles POSITIVE. Critical Result called to and read b ack by Kristen Irving on 11/02/2017 at 15:14 by Edison Short. Narrative: Culture, MRSA [[id number]] Collected: 11/01/17 2146 Order Status: Sent Lab [...] Oral BID PRN Olegario Peng 11/03/2017 7:08 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 as: Atorvastatin 20mg 1 tab by mouth nightly 1 tab by mouth every morning Calcium- vitamin d 600-400mg 1 tab by mouth twice daily 1 tab by mouth every morning Duloxetine 30mg DR 1 capsule by mouth daily Patient has not started this medication PARKING INSPECTOR, cortés s not filled at pharmacy [id number] 200mg by mouth twice daily 200mg by mouth every morning labetalol 200mg 1 tab by mouth twice daily Patient has not started this medication PARKING INSPECTOR, has not filled at pharmacy Best possible PARKING INSPECTOR medication list after pharmacy review: Prior [...] performed and electronically signed by Puja Whitman, Trawl Net Maker 2017 15:31 Electronically signed by: Ta Ronquillo [facility] 11/02/2017 15:40 Olegario Keen MD - 11/02/2017 7:[address] [facility] [place] HOSPITALIST PROGRESS NOTE Patient: Ara Tilley : 1945: Age: 72 y.o. MedRec: [id number] Admission date: 11/01/2017 Hospital day # : [...] 8.6 mg 8.6 mg Oral BID PRN Ruapl Laguna MD sodium chloride 0.9% (NS) infusion [...] Procedure Component Value Units Date/Time Culture, Blood [[id number]] Collected: 11/02/1723 Order Status: Sent Lab Status: In process Updated: 11/02/1732 Specimen: Blood from Peripheral Blood Culture, Blood [[id number]] Collected: 11/02/1718 Order Status: Sent Lab Status: In process Updated: 11/02/1732 Specimen: Blood from Peripheral Blood Culture, MRSA [[id number]] Collected: 11/01/172145 Order Status: Sent Lab Status: [...] 0.9% Intravenous Continuous Olegario Peng 11/02/2017 7:38 [facility] documented in this e ncounter Plan [...] | | | | than 15 ml/min ([facility]) | | | | | | Type 2 DM with CKD | | | | | | stage 5 and | | | | | | hypertension ([facility]) | | | | | | Acute hemodialysis | | | | | | encounter ([facility]) | | + + +--------+ + + [...] [address] | [place] | [phone] | | [facility] | | [address] | | | - LABORATORY | | [...] [address] | [place] | [phone] | | [facility] | | [address] | | | - LABORATORY | | [...] [address] | [place] | [phone] | | [facility] | | [address] | | | - LABORATORY | | [...] | 7 - 18 mg/dL | [facility] | | | | | | [facility] | | | | | | MEDICAL | | | | | | CENTER - | | | | | | LABORATORY | | + + + + + + | Creatinine | 2.99 (H) | 0.60 - 1.30 | [facility] [place] | | | | | mg/dL | [facility] | | | | | | MEDICAL | | | | | | CENTER - | | | | | | LABORATORY | | + + + + + + | eGFR if not | 15 (L)Comment: | >=60 | [facility] | | | | GLOMERULAR FILTRATION | mL/min/1.73m2 | [facility] | | | [place] | RATE,ESTIMATED | | MEDICAL | | | | mL/min/1.93u9Nyzs than | | CENTER - | | [...] | [facility] | [address] | [place] | [phone] | | [facility] | | [address] | | | - LABORATORY | | [...] + | [facility] | [address] | [place] | [phone] | | [facility] | | [address] | | | - LABORATORY | | [...] | | POC | | | [facility] | | | | | [...] [address] | [place] | [phone] | | [facility] | | [address] | | | - LABORATORY | | [...] Urine | appended report. These | | [facility] | | | | results have been [...] [address] | [place] | [phone] | | [facility] | | [address] | | | - LABORATORY | | [...] [address] | [place] | [phone] | | [facility] | | [address] | | | - LABORATORY | | [...] [address] | [place] | [phone] | | [facility] | | [address] | | | - LABORATORY | | [...] + | [facility] | [address] | [place] | [phone] | | [facility] | | [address] | | | - LABORATORY | | [...] | | MEDICAL | | | | mL/min/1.70t8Arqa than | | CENTER - | | [...] + | [facility] | [address] | [place], [place] | [phone] | | [facility] | | [address] | | | - LABORATORY | | [...] [address] | [place] | [phone] | | [facility] | | [address] | | | - LABORATORY | | [...] [address] | [place] | [phone] | | [facility] | | [address] | | | - LABORATORY | | [...] + | [facility] | [address] | [place] | [phone] | | [facility] | | [address] | | | - LABORATORY | | [...] [address] | [place] | [phone] | | [facility] | | [address] | | | - LABORATORY | | [...] [address] | [place] | [phone] | | [facility] | | [address] | | | - LABORATORY | | [...] + | [facility] | [address] | [place] | [phone] | | [facility] | | [address] | | | - LABORATORY | | [...] [address] | [place] | [phone] | | [facility] | | [address] | | | - LABORATORY | | [...] [address] | [place] | [phone] | | [facility] | | [address] | | | - LABORATORY | | [...] | | GLOMERULAR FILTRATION | mL/min/1.73m2 | [facility] | | | [place] | RATE,ESTIMATED | | MEDICAL | | | | mL/min/1.30y2Zizp than | | CENTER - | | [...] + | [facility] | [address] | [place] | [phone] | | [facility] | | [address] | | | - LABORATORY | | [...] [address] | [place] | [phone] | | [facility] | | [address] | | | - LABORATORY | | [...] ST. | [address] | [place], [place] | [phone] | | [facility] | | [address] | | | - LABORATORY | | [...] + | [facility] | [address] | [place] | [phone] | | [facility] | | [address] | | | - LABORATORY | | [...] + | [facility] | [address] | [place] | [phone] | | [facility] | | [address] | | | - LABORATORY | | [...] [address] | [place] | [phone] | | [facility] | | [address] | | | - LABORATORY | | [...] [address] | [place] | [phone] | | [facility] | | [address] | | | - LABORATORY | | [...] [address] | [place] | [phone] | | [facility] | | [address] | | | - LABORATORY | | [...] | | MEDICAL | | | | mL/min/1.02t3Rsos than | | CENTER - | | [...] + | [facility] | [address] | [place] | [phone] | | [facility] | | [address] | | | - LABORATORY | | [...] ST. | [address] | [place], [place] | [phone] | | [facility] | | [address] | | | - LABORATORY | | [...] + | [facility] | [address] | [place] | [phone] | | [facility] | | [address] | | | - LABORATORY | | [...] + | [facility] | [address] | [place] | [phone] | | [facility] | | [address] | | | - LABORATORY | | [...] Demographics Patient Name ANDRES | | | [facility] Room Number [address] | | | Patient Number [id number] Date of Study | | | 11/05/2017 Visit Number [id number] | | | Referring Physician AUDI ANDRADE Number Date of | | | 1945 [employer] Hel[employer] Jasbir Gatica | | | Age 72 year(s) Interpreting | | | GENIE WARREN | | | Insurance Adjustor CHAYO | | | SHERRIE RADFORD, | | | | | | Gender Female Nurse | | | [employer] | | | Procedure Type of Study [...] valve cusps without reducedexcursion.Tricuspid | | | YgstkAxuo-bm-iritzbws tricuspid regurgitation suggestive of a mildly | [...] | | | EF | | | Kjkidmipx16% Left Ventricle Diastolic Dimension: 4.77 cm Septum [...] |excursion. 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 | |Tricuspid Valve | |Aidw-jj-wzhfvfvm tricuspid regurgitation suggestive of a mildly elevated [...] LA Volume: 60.67 ml | | EF Cjlbypgsb25% | | | | Left Ventricle | [...] + | [facility] | [address] | [place] | [phone] | | [facility] | | [address] | | | - LABORATORY | | [...] + | [facility] [facility] | [address] | [place] | [phone] | | [facility] | | [address] | | | - LABORATORY | | [...] [address] | [place] | [phone] | | [facility] | | [address] | | | - LABORATORY | | [...] [address] | [place] | [phone] | | [facility] | | [address] | | | - LABORATORY | | [...] [address] | [place] | [phone] | | [facility] | | [address] | | | - LABORATORY | | [...] | | MEDICAL | | | | mL/min/1.80n8Eczq than | | CENTER - | | [...] [address] | [place] | [phone] | | [facility] | | [address] | | | - LABORATORY | | [...] [address] | [place] | [phone] | | [facility] | | [address] | | | - LABORATORY | | [...] + | [facility] | [address] | [place] | [phone] | | [facility] | | [address] | | | - LABORATORY | | [...] [address] | [place] | [phone] | | [facility] | | [address] | | | - LABORATORY | | [...] [address] | [place] | [phone] | | [facility] | | [address] | | | - LABORATORY | | [...] | [facility] [address] [facility] | [address] | [place] | [phone] | | [facility] | | [address] | | | - LABORATORY | | [...] + | [facility] | [address] | [place] | [phone] | | [facility] | | [address] | | | - LABORATORY | | [...] [address] | [place] | [phone] | | [facility] | | [address] | | | - LABORATORY | | [...] + | [facility] | [address] | [place] | [phone] | | [facility] | | [address] | | | - LABORATORY | | [...] + | [facility] | [address] | [place] | [phone] | | [facility] | | [address] | | | - LABORATORY | | [...] | | MEDICAL | | | | mL/min/1.62b0Jbuh than | | CENTER - | | [...] [address] | [place] | [phone] | | [facility] | | [address] | | | - LABORATORY | | [...] [address] | [place] | [phone] | | [facility] | | [address] | | | - LABORATORY | | [...] | [facility] [address] [facility] | [address] | [place] | [phone] | | [facility] | | [address] | | | - LABORATORY | | [...] [address] | [place] | [phone] | | [facility] | | [address] | | | - LABORATORY | | [address] | [place] | [phone] | | [facility] | | [address] | | | - LABORATORY | | [...] [address] | [place] | [phone] | | [facility] | | [address] | | | - LABORATORY | | [...] + | [facility] | [address] | [place] | [phone] | | [facility] | | [address] | | | - LABORATORY | | [...] [address] | [place] | [phone] | | [facility] | | [address] | | | - LABORATORY | | [...] + | [facility] | [address] | [place] | [phone] | | [facility] | | [address] | | | - LABORATORY | | [...] [address] | [place] | [phone] | | [facility] | | [address] | | | - LABORATORY | | [...] + | [facility] | [address] | [place] | [phone] | | [facility] | | [address] | | | - LABORATORY | | [...] + | [facility] | [address] | [place] | [phone] | | [facility] | | [address] | | | - LABORATORY | | [...] [address] | [place] | [phone] | | [facility] | | [address] | | | - LABORATORY | | [...] + + | Performed at: 01 - [facility] [address], | REFERENCE LAB | | [place], [place] [address] Fire Apparatus Sprinkler Inspector: Ernie Lee MD, Phone: | [facility] | | [phone] | | + + + + + + + + | Performing | Address | City/State/Zipcode | Phone Number | | Organization | | | | + + + + + | REFERENCE LAB | [address] [facility] [address] | [place] [address] | [phone] | | [facility] | Drive [...] [address] | [place] | [phone] | | [facility] | | [address] | | | - LABORATORY | | [...] [address] | [place] | [phone] | | [facility] | | [address] | | | - LABORATORY | | [...] [facility] | | | | | | [facility] | | | | | | MEDICAL | | | | | | CENTER - | | | | | | LABORATORY | | + + + + + + | RBC | 2.97 (L) | 3.70 - 5.20 | [facility] | | | | | M/uL | [facility] | | | | | | MEDICAL [...] + | [facility] | [address] | [place] | [phone] | | [facility] | | [address] | | | - LABORATORY | | [...] test | | | | | | ([id number]). | | | | + + + + + + + + | Specimen | + + | Blood | + + + + + | Narrative | Performed At | + + + | Performed at: 01 - [facility] [place] [address], | REFERENCE LAB | | [place], [place] [id number] Fire Apparatus Sprinkler Inspector: Ernie Lee MD, Phone: | [facility] | | [phone] | | + + + + + + + + | Performing | Address | City/State/Zipcode | Phone Number | | Organization | | | | + + + + + | REFERENCE LAB | [address] | [place] [address] | [phone] | | [facility] | Drive [...] | | MEDICAL | | | | mL/min/1.80u2Fjrh than | | CENTER - | | [...] [address] | [place] | [phone] | | [facility] | | [address] | | | - LABORATORY | | [...] [address] | [place] | [phone] | | [facility] | | [address] | | | - LABORATORY | | [...] + | [facility] | [address] | [place] | [phone] | | [facility] | | [address] | | | - LABORATORY | | [...] [address] | [place] | [phone] | | [facility] | | [address] | | | - LABORATORY | | [...] + | [facility] | [address] | [place] | [phone] | | [facility] | | [address] | | | - [...] [address] | [place] | [phone] | | [facility] | | [address] | | | - LABORATORY | | [...] [address] | [place] | [phone] | | [facility] | | [address] | | | - LABORATORY | | [...] [address] | [place] | [phone] | | [facility] | | [address] | | | - LABORATORY | | [...] | | [facility] | | | | | | MEDICAL [...] + | [facility] | [address] | [place] | [phone] | | [facility] | | [address] | | | - LABORATORY | | [...] [address] | [place] | [phone] | | [facility] | | [address] | | | - LABORATORY | | [...] [address] | [place] | [phone] | | [facility] | | [address] | | | - LABORATORY | | [...] [address] | [place] | [phone] | | [facility] | | [address] | | | - LABORATORY | | [...] [address] | [place] | [phone] | | [facility] | | [address] | | | - LABORATORY | | [...] [address] | [place] | [phone] | | [facility] | | [address] | | | - LABORATORY | | [...] [address] | [place] | [phone] | | [facility] | | [address] | | | - LABORATORY | | [...] + | [facility] | [address] | [place] | [phone] | | [facility] | | [address] | | | - LABORATORY | | [...] Nuenz MD Electronically signed: | | | 11/02/2017 [...] [address] | [place] | [phone] | | [facility] | | [address] | | | - LABORATORY | | [...] [address] | [place] | [phone] | | [facility] | | [address] | | | - LABORATORY | | [...] [address] | [place] | [phone] | | [facility] | | [address] | | | - LABORATORY | | [...] + | [facility] | [address] | [place] | [phone] | | [facility] | | [address] | | | - LABORATORY | | [...] | | MEDICAL | | | | mL/min/1.99e7Bneh than | | CENTER - | | [...] + | [facility] [facility] | [address] | [place], [place] | [phone] | | [facility] | | [address] | | | - LABORATORY | | [...] [address] | [place] | [phone] | | [facility] | | [address] | | | - LABORATORY | | [...] - 1.030 | [facility] | | | [place] | | | [facility] | | [...] [address] | [place] | [phone] | | [facility] | | [address] | | | - LABORATORY | | [...] | | | | | | [employer] | | | | | [...] | Performing | Address | City/State/[facility] | Phone Number | | Organization | | | | + + + + + | [facility] | [address] | [place] | [phone] | | [facility] | | [address] | | | - LABORATORY | | [...] [address] | [place] | [phone] | | [facility] | | [address] | | | - LABORATORY | | [...] [address] | [place] | [phone] | | [facility] | | [address] | | | - LABORATORY | | [...] [address] | [place] | [phone] | | [facility] | | [address] | | | - LABORATORY | | [...] | [facility] [address] [facility] | [address] | [place] | [phone] | | [facility] | | [address] | | | - LABORATORY | | [...] ST. | [address] | [place] | [phone] | | [facility] | | [address] | | | - LABORATORY | | [...] + | [facility] | [address] | [place] | [phone] | | [facility] | | [address] | | | - LABORATORY | | [address] | [place] | [phone] | | [facility] | | [address] | | | - LABORATORY | | [...] | | | | | | [employer] | | | | | [...] [address] | [place] | [phone] | | [facility] | | [address] | | | - LABORATORY | | [...] At | + + + | | [facility] | | | [facility] | | | [facility] | | | - [...] [address] | [place] | [phone] | | [facility] | | [address] | | | [...] [address] | [place] | [phone] | | [facility] | | [address] | | | - LABORATORY | | [...] | | MEDICAL | | | | mL/min/1.69q9Bess than | | CENTER - | | [...] [address] | [place] | [phone] | | [facility] | | [address] | | | - LABORATORY | | [...] | + + + + + | [facility] | [address] | [place] | [phone] | | [facility] | | [address] | | | - LABORATORY | | [...] [address] | [place] | [phone] | | [facility] | | [address] | | | - LABORATORY | | [...] [address] | [place] | [phone] | | [facility] | | [address] | | | - LABORATORY | | [...] comparison only - no result from [place]. | [facility] | + + + [...] comparison only - no result from [place]. | [facility] | + + + [...] comparison only - no result from [place]. 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 If | | | [...] | | | | | | use Daisy 10/325 if ordered. If | | | [...] | | | | | | | 4379-8999 Use NIGHT DOSE for | | | | | | | doses scheduled: HS, 3AM, | | | | | | | Nighttime 5925-2750, | | | | | | + [...] scheduled: AC, | | | NPO, Daytime 7199-2686 Use NIGHT | | | DOSE for doses scheduled: | | | HS, 3AM, Nighttime 3691-7244, | | + +---+ | | | [...] | DAILY, First dose on [facility] 11/04/17 | | AM PST | [...]
--- OUTSIDE RECORDS SUMMARY | ~2019-07-27 | XMS | Encounter Summary ---
Demographics + + + | Address | [address] | | | [place] [address] | + + + | Home Phone [...] | Author | [facility] | | | and [place] | + + + | Organization | [facility] | | | and [place] | + + + | Address | Unknown | + + + | Phone | Unavailable | + + + Support + + + + + | Name | Relationship | Address | Phone | + + + + + | India Tilley | ECON | [address] | | | | | [place], [place] | | | | | [address] | | + + + + + | Yina La | ECON | Unknown | | + + + + + | Yina Peterson | ECON | Unknown | | + + + + + | Leatha Casillas | ECON | Unknown | | + + + + + Care Team Providers + +------+ + | Care Hangersmith Name | Role | Phone | + [...] 2019 | | [address] | [employer]or | intervertebral disc | | | | [place] | | (pyogenic), thoracic | | | | [address] | | region ([facility]); | | | | [phone] | | Osteomyelitis of | | | | | | thoracic vertebra | | | | | | ([facility]) | +--------+ + + + + [...] section. | | | | | region ([facility]) | | | | | | [...] section. | | | | | region ([facility]) | | | | | | [...] | | [facility] | | | | Blvd;[place] [address] | | LABORATORY | | + + + + + + + + | Specimen | + + | Blood | + + + + + + + | Performing | Address | City/State/Zipcode | Phone Number | | Organization | | | | + + + + + | REFERENCE LAB | [address] [place] [address] | [place] [address] | [phone] | | [facility] | Blvd[address] | | | | LABORATORY | | | | + + + + + | REFERENCE LAB | [address] [place] [address] | [place] [address] | | | [facility] | Blvd. | [...] REFERENCE | | | | performed at [facility];[address] | | LAB | | | | [place] | | [facility] | | | | [address];[place] [address] | | LABORATORY | | + + + + + + + + | Specimen | + + | Blood | + + + + + + + | Performing | Address | City/State/Zipcode | Phone Number | | Organization | | | | + + + + + | REFERENCE LAB | [address] [place] [address] [facility] | [place] [address] | [phone] | | [facility] | Blvd[address] | | | | LABORATORY | | | | + + + + + | REFERENCE LAB | [facility] | [place] [address] | | | [facility] | Blvd[address] | [...]
--- OUTSIDE RECORDS SUMMARY | ~2019-07-27 | XMS | Encounter Summary ---
Demographics + + + | Address | [address] | | | [place] [address] | + + + | Home Phone [...] + | Author | [facility] | | | and [place] | + + + | Organization | [facility] | | | and [place] | + + + | Address | Unknown | + + + | Phone | Unavailable | + + + Support + + + + + | Name | Relationship | Address | Phone | + + + + + | India Tilley | ECON | [address] | | | | | [place], [place] | | | | | [address] | | + + + + + | Yina La | ECON | Unknown | | + + + + + | Yina Peterson | ECON | Unknown | | + + + + + | Leatha Casillas | ECON | Unknown | | + + + + + Care Team Providers + +------+ + | Care Advertising Analyst Name | Role | Phone | + +------+ + PCP | Unavailable | + +------+ + Encounter Details +--------+ + + + + | Date | Type | Department | Care Team | Description | +--------+ + + + + | 02/03/ | Hospital | [facility] | Scott Koroma, | Closed fracture of | | 2019 | Encounter | [facility] | MD Nash [place] | neck of right femur, | | | | [address] [place] | [place], [place] | initial encounter | | | | [place], [place] | [id number] | ([facility]); Right hip | | | | [address] | | pain; H/O major | | | | [phone] | | orthopedic surgery | +--------+ + [...] | | | | ([facility]), Right hip | | | [...] | | | | encounter ([facility]) | | | | | [...]
--- OUTSIDE RECORDS SUMMARY | ~2019-07-27 | XMS | Encounter Summary ---
Demographics + + + | Address | [address] | | | [place] [address] | + + + | Home Phone [...] | Author | [facility] | | | and [place] | + + + | Organization | [facility] | | | and [place] | + + + | Address | Unknown | + + + | Phone | Unavailable | + + + Support + + + + + | Name | Relationship | Address | Phone | + + + + + | India Tilley | ECON | [address] | | | | | [place], [place] | | | | | [address] | | + + + + + | Yina La | ECON | Unknown | | + + + + + | Yina Peterson | ECON | Unknown | | + + + + + | Leatha Casillas | ECON | Unknown | | + + + + + Care Team Providers + +------+ + | Care Learning Disabilities Teacher Name | Role | Phone | [...] | [address] | [address], [place] | (moderate) (Primary | | | | [place], [place] | [address] [place], [place] | Dx) | | | | [address] | [address] | | | | | [phone] | | | +--------+ + + + [...] 03/23/2017 2:38 PM PDTRenal Ultrasound scheduled at [facility] on 03/29/17 at 10 AM. docu mented in this encounter Plan of Treatment Not on filedocumented as of this encounter Visit Diagnoses + + | Diagnosis | + + | Chronic kidney disease, stage III (moderate) (HCC) - Primary Chronic kidney disease, | | Stage III (moderate) | + + documented in this encounter"
--- OUTSIDE RECORDS SUMMARY | ~2019-07-27 | XMS | Encounter Summary ---
Demographics + + + | Address | [address] | | | [place] [address] | + + + | Home Phone [...] | Author | [facility] | | | and [place] | + + + | Organization | [facility] | | | and [place] | + + + | Address | Unknown | + + + | Phone | Unavailable | + + + Support + + + + + | Name | Relationship | Address | Phone | + + + + + | India Tilley | ECON | [address] | | | | | [place], [place] | | | | | [address] | | + + + + + | Yina La | ECON | Unknown | | + + + + + | Yina Peterson | ECON | Unknown | | + + + + + | Leatha Casillas | ECON | Unknown | | + + + + + Care Team Providers + +------+ + | Care Preparation Room Manager Name | Role | Phone [...] | | | | [place] | [address] | | | | | [address] | | | | | | [phone] | | | +--------+ + + + [...]
--- OUTSIDE RECORDS SUMMARY | ~2019-07-27 | XMS | Encounter Summary ---
Demographics + + + | Address | [address] | | | [place] [address] | + + + | Home Phone [...] | Author | [facility] | | | and [place] | + + + | Organization | [facility] | | | and [place] | + + + | Address | Unknown | + + + | Phone | Unavailable | + + + Support + + + + + | Name | Relationship | Address | Phone | + + + + + | India Tilley | ECON | [address] | | | | | [place], [place] | | | | | [address] | | + + + + + | Yina La | ECON | Unknown | | + + + + + | Yina Peterson | ECON | Unknown | | + + + + + | Leatha Casillas | ECON | Unknown | | + + + + + Care Team Providers + +------+ + | Care Dock Pumper Name | Role | Phone | + +------+ + PCP | Unavailable | + +------+ + Encounter Details +--------+ + + + + | Date | Type | Department | Care Team | Description | +--------+ + + + + | 01/05/ | Hospital | [facility] | Scott Koroma, | Closed fracture of | | 2018 | Encounter | [facility] | MD Nash [place] | neck of right femur, | | | | [address] [place] | [place], [place] | initial encounter | | | | [place], [place] | [address] | ([facility]); Right hip | | | | [address] | | pain | | | | [phone] | | | +--------+ + + + [...] | | | | | encounter ([facility]) | | | | [...]
--- OUTSIDE RECORDS SUMMARY | ~2019-07-27 | XMS | Encounter Summary ---
Demographics + + + | Address | [address] | | | [place] [address] | + + + | Home Phone [...] Author | [facility] | | | and [place] | + + + | Organization | [facility] | | | and [place] | + + + | Address | Unknown | + + + | Phone | Unavailable | + + + Support + + + + + | Name | Relationship | Address | Phone | + + + + + | India Tilley | ECON | [address] | | | | | [place], [place] | | | | | [address] | | + + + + + | Yina La | ECON | Unknown | | + + + + + | Yina Peterson | ECON | Unknown | | + + + + + | Leatha Casillas | ECON | Unknown | | + + + + + Care Team Providers + +------+ + | Care Brewery Pumper Name | Role | Phone | [...] LISA | | | | | [place] | | | | | | [address] | | | | | | [phone] | | | +--------+ + + + [...]
--- OUTSIDE RECORDS SUMMARY | ~2019-07-27 | XMS | Encounter Summary ---
Demographics + + + | Address | [address] | | | [place] [address] | + + + | Home Phone [...] Author | [facility] | | | and [place] | + + + | Organization | [facility] | | | and [place] | + + + | Address | Unknown | + + + | Phone | Unavailable | + + + Support + + + + + | Name | Relationship | Address | Phone | + + + + + | India Tilley | ECON | [address] | | | | | [place], [place] | | | | | [address] | | + + + + + | Yina La | ECON | Unknown | | + + + + + | Yina Peterson | ECON | Unknown | | + + + + + | Leatha Casillas | ECON | Unknown | | + + + + + Care Team Providers + +------+ + | Care Mural Artist Name | Role | Phone | + +------+ + PCP | Unavailable | + +------+ + Encounter Details +--------+ + + + + | Date | Type | Department | Care Team | Description | +--------+ + + + + | 06/15/ | Telephone | [facility] | Ibis Arriola | | | 2019 | | [facility] | L, RN | | | | | [address] | | | | | | [place] | | | | | | [address] | | | | | | [phone] | | | +--------+ + + + [...]
--- OUTSIDE RECORDS SUMMARY | ~2019-07-27 | XMS | Encounter Summary ---
Demographics + + + | Address | [address] | | | [place] [address] | + + + | Home Phone [...] + | Author | [facility] | | | and Kamaljitana | + + + | Organization | [facility] | | | and [place] | + + + | Address | Unknown | + + + | Phone | Unavailable | + + + Support + + + + + | Name | Relationship | Address | Phone | + + + + + | India Tilley | ECON | [address] | | | | | [place], [place] | | | | | [address] | | + + + + + | Yina La | ECON | Unknown | | + + + + + | Yina Peterson | ECON | Unknown | | + + + + + | Leatha Casillas | ECON | Unknown | | + + + + + Care Team Providers + +------+ + | Care Rubberizing Mechanic Name | Role | Phone | [...] | | | | renal | PA-C [address] | [address] [place] [address] | | | | | disease | | [address]orden [place] | | | | | ([facility]) | CON[facility]ATED | [address] | | | | | Procedures | WAY | [place] | | | | | [place] OFFICE | [place], | [address] Phone: | | | | | OUTPATIENT | [place] [address] | [phone] | | | | | VISIT 25 | Phone: | Fax: | | | | | MINUTES [place] | [phone] | [phone] | | | | | ESRD RELATED | Fax: | | | | | | SVC MONTHLY | [phone] | | | | | | 20&/> YR | | | | | | | OLD 4/> | | | | | | | VISITS | | | +--------+--------+ + + + + Encounter Details +--------+ + + + + | Date | Type | Department | Care Team | Description | +--------+ + + + + | 08/22/ | Off-Site | [facility] | Gopi Muñoz | End stage renal | | 2018 | Visit | NEPHROLOGY [address] | M, DO [address] [place] | disease (HCC) | | | | [address] | [place], [address] [address] | (Primary Dx) | | | | [place], [place] | [place], [place] | | | | | [address] | [address] | | | | | [phone] | | | +--------+ + + + [...]
--- OUTSIDE RECORDS SUMMARY | ~2019-07-27 | XMS | Encounter Summary ---
Demographics + + + | Address | [address] | | | [place] [address] | + + + | Home Phone [...] Author | [facility] | | | and Kamaljitana | + + + | Organization | [facility] | | | and [place] | + + + | Address | Unknown | + + + | Phone | Unavailable | + + + Support + + + + + | Name | Relationship | Address | Phone | + + + + + | India Tilley | ECON | [address] | | | | | [place], [place] | | | | | [address] | | + + + + + | Yina La | ECON | Unknown | | + + + + + | Yina Peterson | ECON | Unknown | | + + + + + | Leatha Casillas | ECON | Unknown | | + + + + + Care Team Providers + +------+ + | Care Millstone Cleaner Name | Role | Phone | [...] | Surgery | kidney | DO [address] | [address] | | | | | disease, | [place], [place] | [address] | | | | | stage V | [address] | [place], | | | | | ([facility]) | [place] | [place] [address] | | | | | | [address] | Phone: | | | | | | Phone: | [phone] | | | | | | [phone] | Fax: | | | | | | Fax: | [phone] | | | | | | [phone] | | +--------+ + + + + + Encounter Details +--------+---------+ + + + | Date | Type | Department | Care Team | Description | +--------+---------+ + + + | 04/04/ | Office | [facility] | Santos Stephenson | Chronic kidney | | 2018 | Visit | SURGERY [address] | MD Kinga, FACS [address] | disease, stage V | | | | [place], [place] | [address] [facility] | (HCC) (Primary Dx) | | | | [address] | [place] [address] | | | | | [phone] | [phone] | | | | | | | [...] Placement; Surgeon: Nora Leo MD; Location : [facility] MAIN OR SHUNT PLACEMENT/INSERTION Right 02/04/2018 Procedure: INSERTION SHUNT HEMODIALYSIS W/ PERMACATH; Surgeon: Heather Navarro MD; L ocation: [facility] MAIN OR VEIN SURGERY Right 01/04/2018 Procedure: Right Transposed Basilic Vein to Proximal Radial Artery; Surgeon: Santos Stephenson MD, FACS; Location: [facility] MAIN OR Allergies Allergen Reactions [...] can shower tomorrow. Patient to follow with gunstock repairer and primary care. I will be available [...]
--- OUTSIDE RECORDS SUMMARY | ~2019-07-27 | XMS | Encounter Summary ---
Demographics + + + | Address | [address] | | | [place] [address] | + + + | Home Phone [...] [facility] | | | and Kamaljitana | + + + | Organization | [facility] | | | and [place] | + + + | Address | Unknown | + + + | Phone | Unavailable | + + + Support + + + + + | Name | Relationship | Address | Phone | + + + + + | India Tilley | ECON | [address] | | | | | [place], [place] | | | | | [address] | | + + + + + | Yina La | ECON | Unknown | | + + + + + | Yina Peterson | ECON | Unknown | | + + + + + | Leatha Casillas | ECON | Unknown | | + + + + + Care Team Providers + +------+ + | Care Firefighter Type One Name | Role | Phone | + +------+ + | Renato Pierson BULK COOLERS INSTALLER | PCP | | + +------+ + Encounter Details +--------+ + + + + | Date | Type | Department | Care Team | Description | +--------+ + + + + | 05/18/ | Orders Only | [facility] | Maribeth Vaughan | 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 | | [address] | Y, Catalytic Converter Operator Helper | intervertebral disc | | | | [place] | | (pyogenic), thoracic | | | | [address] | | region ([facility]); | | | | [phone] | | Osteomyelitis of | | | | | | thoracic vertebra | | | | | | ([facility]) | +--------+ + + + [...] section. | | | | | region ([facility]) | | | [...] section. | | | | | region ([facility]) | | | | | | Osteomyelitis of | | | | | | thoracic vertebra | | | | | | ([facility]) | | + +--------+ + + + | C-REACTIVE PROTEIN | Routin | 05/18/2019 | Infection of | Results for this | | | e | 3:45 PM | intervertebral disc | procedure are in the | | | | PDT | (pyogenic), thoracic | results section. | | | | | region ([facility]) | | | | | | Osteomyelitis of | | | | | | thoracic vertebra | | | | | | ([facility]) | | + +--------+ + + + | COMPREHENSIVE | Routin | 05/18/2019 | Infection of | Results for this | | METABOLIC PANEL | e | 3:45 PM | intervertebral disc | procedure are in the | | | | PDT | (pyogenic), thoracic | results section. | | | | | region ([facility]) | | | | | | Osteomyelitis of | | | | | | thoracic vertebra | | | | | | ([facility]) | | + +--------+ + + + | CULTURE, BLOOD | Routin | 05/18/2019 | Infection of | Results for this | | | e | 3:08 PM | intervertebral disc | procedure are in the | | | | PDT | (pyogenic), thoracic | results section. | | | | | region ([facility]) | | | | | | Osteomyelitis of | | | | | | thoracic vertebra | | | | | | ([facility]) | | + +--------+ + [...] | | | Absolute | performed at [facility];[address] | [address] | LAB | | | | [place] | | [facility] | | | | [address];[place] [address] | | LABORATORY | | + + + + + + + + | Specimen | + + | Blood | + + + + + + + | Performing | Address | City/State/Zipcode | Phone Number | | Organization | | | | + + + + + | REFERENCE LAB | [address] | [place] [address] | [phone] | | [facility] | Bl[address] | | | | LABORATORY | | | | + + + + + | REFERENCE LAB | [address] | [place] [address] | | | [facility] | Bl[address] | [...] | | | | | performed at [facility];[address] | | | | | | [address] | | | | | | [place] [address] | | | | | | | | | | + + + + + + + + | Specimen | + + | Blood | + + + + + + + | Performing | Address | City/State/Zipcode | Phone Number | | Organization | | | | + + + + + | REFERENCE LAB | [address] | [place] [address] | [phone] | | [facility] | Blvd[address] | | | | LABORATORY | | | | + + + + + | REFERENCE LAB | [address] | [place] [address] | | | [facility] | Blvd[address] | [...] REFERENCE | | | | performed at [facility];[address] | | LAB | | | | [place] | | [facility] | | | | Bl[address];[place] [address] | | LABORATORY | | + + + + + + + + | Specimen | + + | Blood | + + + + + + + | Performing | Address | City/State/Zipcode | Phone Number | | Organization | | | | + + + + + | REFERENCE LAB | [address] [place] [address] | [place] [address] | [phone] | | [facility] | Blvd[address] | | | | LABORATORY | | | | + + + + + | REFERENCE LAB | [address] [place] [address] | [place] [address] | | | [facility] | Blvd. | [...] REFERENCE | | | | performed at [facility];[address] | | LAB | | | | [place] | | [facility] | | | | [address];[place] [address] | | LABORATORY | | + + + + + + + + | Specimen | + + | Blood | + + + + + + + | Performing | Address | City/State/Zipcode | Phone Number | | Organization | | | | + + + + + | REFERENCE LAB | [address] | [place] [address] | [phone] | | [facility] | Bl[address] | | | | LABORATORY | | | | + + + + + | REFERENCE LAB | [address] | [place] [address] | | | [facility] | Blvd. | [...] REFERENCE | | | | [facility];[address] | | LAB | | | | Blvd;[place] | | [facility] | | | | [id number]: Testing | | LABORATORY | | | | performed at [facility], [address] | | | | | | [address], | | | | | | [place] [address] | | | | + + + [...] + | REFERENCE LAB | [address] | [place] [address] | [phone] | | [facility] | Blvd. | | | | LABORATORY | | | | + + + + + | REFERENCE LAB | [address] | [place] [address] | | | [employer] | Blvd. | | | | LABORATORY [...]
--- OUTSIDE RECORDS SUMMARY | ~2019-07-27 | XMS | Encounter Summary ---
Demographics + + + | Address | [address] | | | [place] [address] | + + + | Home Phone [...] | Author | [facility] | | | and Kamaljitana | + + + | Organization | [facility] | | | and [place] | + + + | Address | Unknown | + + + | Phone | Unavailable | + + + Support + + + + + | Name | Relationship | Address | Phone | + + + + + | India Tilley | ECON | [address] | | | | | [place], [place] | | | | | [address] | | + + + + + | Yina La | ECON | Unknown | | + + + + + | Yina Peterson | ECON | Unknown | | + + + + + | Leatha Casillas | ECON | Unknown | | + + + + + Care Team Providers + +------+ + | Care Loans Consultant Name | Role | Phone | + +------+ + PCP | Unavailable | + +------+ + Encounter Details +--------+ + + + + | Date | Type | Department | Care Team | Description | +--------+ + + + + | 01/10/ | Off-Site | [facility] | Gopi Muñoz | End stage renal | | 2018 | Visit | NEPHROLOGY [address] | M, DO [address] [place] | disease (HCC) | | | | [address] | [place], [address] | (Primary Dx) | | | | [place], [place] | [place], [place] | | | | | [address] | [address] | | | | | [phone] | | | +--------+ + + + [...] HTN and diabetic glomerul osclerosis at the [facility]. She also has depression, long standing [...]
--- OUTSIDE RECORDS SUMMARY | ~2019-07-27 | XMS | Encounter Summary ---
Demographics + + + | Address | [address] | | | [place] [address] | + + + | Home Phone [...] Author | [facility] | | | and Kamaljitana | + + + | Organization | [facility] | | | and [place] | + + + | Address | Unknown | + + + | Phone | Unavailable | + + + Support + + + + + | Name | Relationship | Address | Phone | + + + + + | India Tilley | ECON | [address] | | | | | [place], [place] | | | | | [address] | | + + + + + | Yina La | ECON | Unknown | | + + + + + | Yina Peterson | ECON | Unknown | | + + + + + | Leatha Casillas | ECON | Unknown | | + + + + + Care Team Providers + +------+ + | Care Cloth Finishing Range Tender Name | Role | Phone | + +------+ + PCP | Unavailable | + +------+ + Encounter Details +--------+ + + + + | Date | Type | Department | Care Team | Description | +--------+ + + + + | 02/03/ | Hospital | [facility] | Scott Koroma, | Closed fracture of | | 2019 | Encounter | MED CTR [address] XRAY | MD Nash SEPULVEDA | neck of right femur, | | | | [address] [place] | [place], [place] | initial encounter | | | | [place], [place] | [id number] | ([facility]); Right hip | | | | [address] | | pain; H/O major | | | | [phone] | | orthopedic surgery | +--------+ + [...] | | | | ([facility]), Right hip | | | | | [...] section. | | | | | encounter ([facility]) | | | | | | Right [...]
--- OUTSIDE RECORDS SUMMARY | ~2019-07-27 | XMS | Clinical Summary ---
Demographics + + + | Address | [address] | | | [place] [address] | + + + | Home Phone [...] | Author | [facility] [employer] (Historical as of | | | 04-29-19) | + + + | Organization | [facility] [employer] (Historical as of | | | 04-29-19) [...] Team Providers + +------+ + | Care El Teacher Name | Role | Phone | [...]
--- OUTSIDE RECORDS SUMMARY | ~2019-07-27 | XMS | Encounter Summary ---
Demographics + + + | Address | [address] | | | [place] [address] | + + + | Home Phone [...] Author | [facility] | | | and Kamaljitana | + + + | Organization | [facility] | | | and [place] | + + + | Address | Unknown | + + + | Phone | Unavailable | + + + Support + + + + + | Name | Relationship | Address | Phone | + + + + + | India Tilley | ECON | [address] | | | | | [place], [place] | | | | | [address] | | + + + + + | Yina La | ECON | Unknown | | + + + + + | Yina Peterson | ECON | Unknown | | + + + + + | Leatha Casillas | ECON | Unknown | | + + + + + Care Team Providers + +------+ + | Care Revenue Stamp Cutter Name | Role | Phone | [...] | | | | renal | PA-C [address] | [address] [place] [address] | | | | | disease | | [address] | | | | | ([facility]) | CONFEDERATED | [address] | | | | | Procedures | WAY | [place] | | | | | [place] OFFICE | [place], | [address] Phone: | | | | | OUTPATIENT | [place] [address] | [phone] | | | | | VISIT 25 | Phone: | Fax: | | | | | MINUTES | [phone] | [phone] | | | | | | Fax: | | | | | | | [phone] | | +--------+--------+ + + + + Encounter Details +--------+ + + + + | Date | Type | Department | Care Team | Description | +--------+ + + + + | 02/28/ | Off-Site | [facility] | Gopi Muñoz | End stage renal | | 2018 | Visit | NEPHROLOGY [address] | M, DO [address] | disease (HCC) | | | | [address] | [place], [address] | (Primary Dx) | | | | [place] | [place] | | | | | [address] | [address] | | | | | [phone] | | | +--------+ + + + [...] Will recheck her in 2 weeks. : [place], [place]. Santos Stephenson MD, [facility] documented in thi s encounter Plan of Treatment Not on filedocumented as of this encounter Visit Diagnoses + + | Diagnosis | + + | End stage renal disease (HCC) - Primary End stage renal disease | + + documented in this encounter"
--- OUTSIDE RECORDS SUMMARY | ~2019-07-27 | XMS | Encounter Summary ---
Demographics + + + | Address | [address] | | | [place] [address] | + + + | Home Phone [...] Author | [facility] | | | and Kamaljitana | + + + | Organization | [facility] | | | and [place] | + + + | Address | Unknown | + + + | Phone | Unavailable | + + + Support + + + + + | Name | Relationship | Address | Phone | + + + + + | India Tilley | ECON | [address] | | | | | [place], [place] | | | | | [address] | | + + + + + | Yina La | ECON | Unknown | | + + + + + | Yina Peterson | ECON | Unknown | | + + + + + | Leatha Casillas | ECON | Unknown | | + + + + + Care Team Providers + +------+ + | Care Director Of Promotions Name | Role | Phone | + +------+ + PCP | Unavailable | + +------+ + Encounter Details +--------+ + + + + | Date | Type | Department | Care Team | Description | +--------+ + + + + | 05/16/ | Hospital | [facility] | Patricia, | | | 2007 - | Encounter | MED CTR CANCER | Venkatesh Forte MD [address] | | | | | [place] [address] | [facility] | | | 06/12/ | | [place], [place] | [place] [address] | | | 2007 | | [address] | [phone] | | | | | [phone] | | | +--------+ + + + [...]
--- OUTSIDE RECORDS SUMMARY | ~2019-07-27 | XMS | Encounter Summary ---
Demographics + + + | Address | [address] | | | [place] [address] | + + + | Home Phone [...] | Author | [facility] | | | and Kamaljitana | + + + | Organization | [facility] | | | and [place] | + + + | Address | Unknown | + + + | Phone | Unavailable | + + + Support + + + + + | Name | Relationship | Address | Phone | + + + + + | India Tilley | ECON | [address] | | | | | [place], [place] | | | | | [address] | | + + + + + | Yina La | ECON | Unknown | | + + + + + | Yina Peterson | ECON | Unknown | | + + + + + | Leatha Casillas | ECON | Unknown | | + + + + + Care Team Providers + +------+ + | Care Etymology Teacher Name | Role | Phone | [...] | Infection | Nick Miller | [address]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 | [place], | [place], | | | | | 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 [address] | [place] [address] | | | | | al disc | [address] | Phone: | | | | | (pyogenic), | [place], [place] | [phone] | | | | | thoracic | [address] | Fax: | | | | | region (HCC) | Phone: | [phone] | | | | | | [phone] | | | | | | 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: | | | | | | s of | [phone] | | | | | | thoracic [...] + + | 06/13/ | Office | [facility] | Fabiana Miller, | 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 | 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 | Nick Apodaca MD | intervertebral disc | | | | [address] | [address] | (pyogenic), thoracic | | | | [place], [place] | [place] [address] | region (HCC) | | | | [address] | [phone] | (Primary Dx); | | | | [phone] | | Osteomyelitis of | | | [...] | | | | ([facility]); Central | | | | | [...] documented as of this encounter Progress Notes Nikc Pritchard MD - 06/13/2019 2:00 PM PDT [facility]: Infectious Diseases Outpatient Follow Up Note [...] Unfortunately, the patient ended up admitted to [facility] in [place] soon aft er that due to fluid overload and CHF exacerbation. I did receive a call from her team of doctors during the patient's hospital stay and I jos mmended to transfer the patient to 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 Stephenson SHUNT PLACEMENT/INSERTION N/A 11/08/2017 Procedure: Tunneled Hemodialysis Catheter Placement; Surgeon: Nora Leo MD; Location : [facility] MAIN OR SHUNT PLACEMENT/INSERTION Right 02/04/2018 Procedure: INSERTION SHUNT HEMODIALYSIS W/ PERMACATH; Surgeon: Heather Navarro MD; L ocation: [facility] MAIN OR VEIN SURGERY Right 01/04/2018 Procedure: Right Transposed Basilic Vein to Proximal Radial Artery; Surgeon: Santos Stephenson MD, FACS; Location: [facility] MAIN OR SOCIAL HISTORY Social History [...] receive any antibiotic therapy intravenously at [facility]. She was educated about the risks of permanent central line and risk of bacteremia. We are hoping to get her repeat CT-guided procedure within the next 7 days. The patient wi shes to do this in [place] and we will explore that possibility, otherwise she was expla ined that she has to come [facility]. Side effects of medications, duration of therapy, [...] REFERENCE | | | | performed at [facility];[address] | | LAB | | | | [place] | | [facility] | | | | Blvd;[place] [address] | | LABORATORY | | + + + + + + + + | Specimen | + + | Blood | + + + + + + + | Performing | Address | City/State/Zipcode | Phone Number | | Organization | | | | + + + + + | REFERENCE LAB | [address] | [place] [address] | [phone] | | [facility] | Blvd[address] | | | | LABORATORY | | | | + + + + + | REFERENCE LAB | [address] | [place] [address] | | | [facility] | Blvd[address] | [...] REFERENCE | | | | performed at [facility];[address] | | LAB | | | | [place] | | [facility] | | | | Blvd;[place] [address] | | LABORATORY | | + + + + + + + + | Specimen | + + | Blood | + + + + + + + | Performing | Address | City/State/Zipcode | Phone Number | | Organization | | | | + + + + + | REFERENCE LAB | [address] [place] [address] | [place] [address] | [phone] | | [facility] | Blvd. | | | | LABORATORY | | | | + + + + + | REFERENCE LAB | [address] [place] [address] | [place] [address] | | | [facility] | Blvd. | [...]
--- OUTSIDE RECORDS SUMMARY | ~2019-07-27 | XMS | Encounter Summary ---
Demographics + + + | Address | [address] | | | [place] [address] | + + + | Home Phone [...] | [facility] | | | and [place]jitana | + + + | Organization | [facility] | | | and [place] | + + + | Address | Unknown | + + + | Phone | Unavailable | + + + Support + + + + + | Name | Relationship | Address | Phone | + + + + + | India Tilley | ECON | [address] | | | | | [place], [place] | | | | | [address] | | + + + + + | Yina La | ECON | Unknown | | + + + + + | Yina Peterson | ECON | Unknown | | + + + + + | Leatha Casillas | ECON | Unknown | | + + + + + Care Team Providers + +------+ + | Care Referral Nurse Name | Role | Phone | + +------+ + PCP | Unavailable | + +------+ + Encounter Details +--------+ + + + + | Date | Type | Department | Care Team | Description | +--------+ + + + + | 11/07/ | Hospital | [facility] | Peyman Wu, | CHR ISCHEMIC HRT DIS | | 2002 | Encounter | MEDICAL [facility]ENTER | [address] | NOS | | | | CLINICAL DECISION | [address] | | | | | [address] [facility] | [address] | | | | | [place], [place] | [phone] | | | | | [address] | | | | | | [phone] | | | +--------+ + + + [...]
--- OUTSIDE RECORDS SUMMARY | ~2019-07-27 | XMS | Encounter Summary ---
Demographics + + + | Address | [address] | | | [place] [address] | + + + | Home Phone [...] | Author | [facility] | | | and Kamaljitana | + + + | Organization | [facility] | | | and [place] | + + + | Address | Unknown | + + + | Phone | Unavailable | + + + Support + + + + + | Name | Relationship | Address | Phone | + + + + + | India Tilley | ECON | [address] | | | | | [place], [place] | | | | | [address] | | + + + + + | Yina La | ECON | Unknown | | + + + + + | Yina Peterson | ECON | Unknown | | + + + + + | Leatha Casillas | ECON | Unknown | | + + + + + Care Team Providers + +------+ + | Care Jar Capper Name | Role | Phone | + +------+ + PCP | Unavailable | + +------+ + Reason for Visit +--------+ + | Reason | Comments | +--------+ + | Other | Admission Records 06/20/2019-06/22/2019- [facility] . | +--------+ + Encounter Details +--------+ + + + + | Date | Type | Department | Care Team | Description | +--------+ + + + + | 06/27/ | Documentati | [facility] | Tabatha Patel, | Other (Admission | | 2019 | on | INFECTIOUS DISEASE | Jacquard Lace Weaver | Records | | | | [address] | | 06/20/2019- | | | | [place], [place] | | [facility] | | | | [address] | | Hospital . ) | | | | [phone] | | | +--------+ + + + [...] as of this encounter Progress Tabatha Rowley Jacquard Lace Weaver - 06/27/2019 10:44 AM PDTReceived records from [facility]. For patient admission from 06/20/2019-06/22/2019. Records were sent to scan. Yoko CMA. documen rich in this encounter Plan of Treatment Not on filedocumented as of this encounter Visit Diagnoses Not on filedocumented in this encounter"
--- OUTSIDE RECORDS SUMMARY | ~2019-07-27 | XMS | Encounter Summary ---
Demographics + + + | Address | [address] | | | [place] [address] | + + + | Home Phone [...] | Author | [facility] | | | and Kamaljitana | + + + | Organization | [facility] | | | and [place] | + + + | Address | Unknown | + + + | Phone | Unavailable | + + + Support + + + + + | Name | Relationship | Address | Phone | + + + + + | India Tilley | ECON | [address] | | | | | [place], [place] | | | | | [address] | | + + + + + | Yina La | ECON | Unknown | | + + + + + | Yina Peterson | ECON | Unknown | | + + + + + | Leatha Casillas | ECON | Unknown | | + + + + + Care Team Providers + +------+ + | Care Master Coastal Waters Name | Role | Phone | + +------+ + PCP | Unavailable | + +------+ + Encounter Details +--------+ + + + + | Date | Type | Department | Care Team | Description | +--------+ + + + + | 10/14/ | Hospital | [facility] | | | | 2006 - | Encounter | MED CTR CANCER | | | | | | CENTER [facility] [address] | | | | 11/10/ | | [place] | | | | 2006 | | [address] | | | | | | [phone] | | | +--------+ + + + [...]
--- OUTSIDE RECORDS SUMMARY | ~2019-07-27 | XMS | Clinical Summary ---
Demographics + + + | Address | [address] | | | [place] [address] | + + + | Home Phone [...] + | Author | [facility] (Historical as of | | | 04-29-19) | + + + | Organization | [facility] (Historical as of | | | 04-29-19) [...] Team Providers + +------+ + | Care Deep Fryer Assembler Name | Role | Phone | [...]
--- OUTSIDE RECORDS SUMMARY | ~2019-07-27 | XMS | Encounter Summary ---
Demographics + + + | Address | [address] | | | [place] [address] | + + + | Home Phone [...] Author | [facility] | | | and Kamaljitana | + + + | Organization | [facility] | | | and [place] | + + + | Address | Unknown | + + + | Phone | Unavailable | + + + Support + + + + + | Name | Relationship | Address | Phone | + + + + + | India Tilley | ECON | [address] | | | | | [place], [place] | | | | | [address] | | + + + + + | Yina La | ECON | Unknown | | + + + + + | Yina Peterson | ECON | Unknown | | + + + + + | Leatha Casillas | ECON | Unknown | | + + + + + Care Team Providers + +------+ + | Care Ambulette Driver Name | Role | Phone | + +------+ + PCP | Unavailable | + +------+ + Encounter Details +--------+ + + + + | Date | Type | Department | Care Team | Description | +--------+ + + + + | 11/24/ | Hospital | [facility] | | | | 2006 - | Encounter | MED CTR CANCER | | | | | | CENTER [facility] [address] | | | | 12/11/ | | [place] | | | | 2006 | | [address] | | | | | | [phone] | | | +--------+ + + + [...]
--- OUTSIDE RECORDS SUMMARY | ~2019-07-27 | XMS | Encounter Summary ---
Demographics + + + | Address | [address] | | | [place] [address] | + + + | Home Phone [...] + | Author | [facility] | | | and Kamaljitana | + + + | Organization | [facility] | | | and [place] | + + + | Address | Unknown | + + + | Phone | Unavailable | + + + Support + + + + + | Name | Relationship | Address | Phone | + + + + + | India Tilley | ECON | [address] | | | | | [place], [place] | | | | | [address] | | + + + + + | Yina La | ECON | Unknown | | + + + + + | Yina Peterson | ECON | Unknown | | + + + + + | Leatha Casillas | ECON | Unknown | | + + + + + Care Team Providers + +------+ + | Care Music Minister Name | Role | Phone | + +------+ + | Renato Pierson CELLOPHANE CASTING MACHINE REPAIRER | PCP | | + +------+ [...] | Infection | Nick Miller | [address]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 | [place], | [place], | | | | | 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 [address] | [place] [address] | | | | | al disc | [address] | Phone: | | | | | (pyogenic), | [place], [place] | [phone] | | | | | thoracic | [address] | Fax: | | | | | region (HCC) | Phone: | [phone] | | | | | | [phone] | | | | | | 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: | | | | | | s of | [phone] | | | | | | thoracic | | | | | | | vertebra | | | | | | | ([facility]) | | | | | [...] + + | 07/13/ | Hospital | [facility] | Fabiana Miller, | Canceled (OTHER) | | 2019 | Encounter | CENTER IR INTRA OP | Nick Apodaca MD | | | | | [address] | [address] | | | | | [place], [place] | [place] [address] | | | | | [address] | [phone] | | | | | [phone] | | | | | | | Wm [place] | | | | | | MD [address] | | | | | | [address] | | | | | | [place] [address] | | | | | | [phone] | | | | | | | [...]
--- OUTSIDE RECORDS SUMMARY | ~2019-07-27 | XMS | Encounter Summary ---
Demographics + + + | Address | [address] | | | [place] [address] | + + + | Home Phone [...] | [facility] | | | and Kamaljitana | + + + | Organization | [facility] | | | and [place] | + + + | Address | Unknown | + + + | Phone | Unavailable | + + + Support + + + + + | Name | Relationship | Address | Phone | + + + + + | India Tilley | ECON | [address] | | | | | [place], [place] | | | | | [address] | | + + + + + | Yina La | ECON | Unknown | | + + + + + | Yina Peterson | ECON | Unknown | | + + + + + | Leatha Casillas | ECON | Unknown | | + + + + + Care Team Providers + +------+ + | Care Survey Rodman Name | Role | Phone | + [...] + + | 06/03/ | Telephone | [facility] | Darlin Moseley W, | Dialysis | | 2018 | | NEPHROLOGY [address] | (Asymptomatic) | | | | [address] | [address] [place] | | | | | [place] | [place] [address] | | | | | [address] | [phone] | | | | | [phone] | | | +--------+ + + + [...]
--- OUTSIDE RECORDS SUMMARY | ~2019-07-27 | XMS | Encounter Summary ---
Demographics + + + | Address | [address] | | | [place] [address] | + + + | Home Phone [...] | Author | [facility] | | | and Kamaljit[place] | + + + | Organization | [facility] | | | and [place] | + + + | Address | Unknown | + + + | Phone | Unavailable | + + + Support + + + + + | Name | Relationship | Address | Phone | + + + + + | India Tilley | ECON | [address] | | | | | [place], [place] | | | | | [address] | | + + + + + | Yina La | ECON | Unknown | | + + + + + | Yina Peterson | ECON | Unknown | | + + + + + | Leatha Caisllas | ECON | Unknown | | + + + + + Care Team Providers + +------+ + | Care Assistant Maintenance Manager Name | Role | Phone | + +------+ + PCP | Unavailable | + +------+ + Encounter Details +--------+ + + + + | Date | Type | Department | Care Team | Description | +--------+ + + + + | 12/05/ | Hospital | [facility] | Carlos Sandoval | | | 2007 | Encounter | MED CTR XRAY [address] | MD [place] [address] [facility] | | | | | [address] | [place], [place] | | | | | [place] [address] | [id number] | | | | | [phone] | | | +--------+ + + + [...]
--- OUTSIDE RECORDS SUMMARY | ~2019-07-27 | XMS | Encounter Summary ---
Demographics + + + | Address | [address] | | | [place] [address] | + + + | Home Phone [...] Author | [facility] | | | and Kamaljitana | + + + | Organization | [facility] | | | and [place] | + + + | Address | Unknown | + + + | Phone | Unavailable | + + + Support + + + + + | Name | Relationship | Address | Phone | + + + + + | India Tilley | ECON | [address] | | | | | [place], [place] | | | | | [address] | | + + + + + | Yina La | ECON | Unknown | | + + + + + | Yina Peterson | ECON | Unknown | | + + + + + | Leatha Casillas | ECON | Unknown | | + + + + + Care Team Providers + +------+ + | Care Motor Pool Clerk Name | Role | Phone | + +------+ + PCP | Unavailable | + +------+ + Encounter Details +--------+ + + + + | Date | Type | Department | Care Team | Description | +--------+ + + + + | 05/18/ | Orders Only | [facility] | Fabiana Miller, | | | 2018 | | INFECTIOUS DISEASE | Nick Apodaca MD | | | | | [address] | [address] | | | | | [place], [place] | [place] [address] | | | | | [address] | [phone] | | | | | [phone] | | | +--------+ + + + [...] | | REFERENCE | | | | [facility];[address] | | LAB | | | | Blvd;[place] | | [facility] | | | | [id number]: Testing | | LABORATORY | | | | performed at [facility], [address] | | | | | | [facility], | | | | | | [place] [address] | | | | + + + + + + + + | Specimen | + + | | + + + + + + + | Performing | Address | City/State/Zipcode | Phone Number | | Organization | | | | + + + + + | REFERENCE LAB | [address] [place] [address] | [place] [address] | [phone] | | [facility] | Blvd. | | | | LABORATORY | | | | + + + + + | REFERENCE LAB | [address] [place] [address] | [place] [address] | | | [facility] | Blvd. | | | | LABORATORY | | | | + + + + + documented in this encounter Visit Diagnoses Not on filedocumented in this encounter"
--- OUTSIDE RECORDS SUMMARY | ~2019-07-27 | XMS | Encounter Summary ---
Demographics + + + | Address | [address] | | | [place] [address] | + + + | Home Phone | | + + + | Preferred Language | Unknown | + + + | Marital Status | Single | + + + | Spiritism Affiliation | Unknown | + + + | Race | Unknown | + + + | Ethnic Group | Unknown | + + + Author + + + | Author | [facility] | | | and Kamaljit[place] | + + + | Organization | [facility] [...] [place], [place] | | | | | [address] | | + + + + + | Yina La | ECON | Unknown | | + + + + + | Yina Peterson | ECON | Unknown | | + + + + + | Leatha Casillas | ECON | Unknown | | + + + + + Care Team Providers + +------+ + | Care Railroad Car Painter Name | Role | Phone | [...] | | | ([facility]) | | | | | | | Complication | | | | | | | s, dialysis, | | | | | | | catheter, | | | | | | | mechanical, | | | | | | | initial | | | | | | | encounter | | | | | | | ([facility]) | | | | [...] + + | 02/04/ | Emergency | [facility] | [place], | Complications, | | 2018 - | | MED CTR SURGICAL | Venkatesh Esteban MD [address] | dialysis, catheter, | | | | [address] [place] | [address] [place] | mechanical, initial | | 02/05/ | | [place] [address] | [place] [address] | encounter ([facility]) | | 2018 | | [phone] | [phone] | (Primary Dx); End | | | | | | stage renal disease | | | | | Heather Navarro, | ([facility]) | | | | | [address] | | | | | | [place], [place] | | | | | | [phone] | | | | | | | [...] Office Phone Number to Contact Dr Navarro: [phone] Navarro's Office to schedule a follow up visit as needed - you will follow up with Dr Stephenson and at the dialysis center. Our office is located in the [facility] next door to Urgent Care. [...] Wednesday 9:00-2:00PM. Call the General Surgery Office [phone] for the following: Persistent vomiting Diarrhea lasting [...] as possible. Limit sports and strenuous activities [id number]. Shower as usual. Gently wash around your [...] ST. | [address] | [place], [place] | [phone] | | [facility] | | [address] | | | - LABORATORY | | [...] ST. | [address] | [place], [place] | [phone] | | [facility] | | [address] | | | - LABORATORY | | [...] 3.57 (H) | 0.60 - 1.30 | [facility] | | | | | mg/dL [...] mL/min/1.73m2 | [facility] | | | [place] | RATE,ESTIMATED | | MEDICAL | | | | mL/min/1.36q4Iyet than | | CENTER - | | [...] [address] | [place] | [phone] | | [facility] | | [address] | | | - LABORATORY | | [...] [address] | [place] | [phone] | | [facility] | | [address] | | | - LABORATORY | | | | + + + + + documented in this encounter Visit Diagnoses + + | Diagnosis | + + | Complications, dialysis, catheter, mechanical, initial encounter ([facility]) - Primary | + + | End stage renal disease ([facility]) End stage renal disease | [...] agent. 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 If patient cannot [...]
--- OUTSIDE RECORDS SUMMARY | 2019-07-27 14:50 | XMS ---
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 \T\middot;\T\nbsp; PLEASE REFER PATIENT TO [facility] FOR NON EMERGENT MEDICAL NEEDS. \T\middot;\ T\nbsp; [facility] CAN SEE PATIENTS SAME DAY FOR APTS IF PATIENT CALLS FIRST THING IN THE MORNING. E.D. VISIT COUNT (12 MO.) 1 [facility] [address] [facility] [place] 9 [facility]. TOTAL 13 NOTE: Visits indicate total known visits. ED/UCC VISIT TRACKING (12 MO.) 07/27/2019 14:47 RADHA Cuello TYPE: Emergency COMPLAINT: - SOB 06/20/2019 02:00 [facility] TYPE: Emergency DIAGNOSES: - End stage renal disease - Difficulty Breathing - Hyperkalemia - Shortness of Breath 05/20/2019 15:22 RADHA Cuello TYPE: Emergency COMPLAINT: - SOB DIAGNOSES: - End stage renal disease - Allergy status to analgesic agent status - Shortness of breath - Personal history of malignant neoplasm of breast - Allergy status to oth drug/meds/biol subst status - Dependence on renal dialysis - Allergy status to other anti-infective agents status - halfway (current) use of aspirin - 1 Type 2 diabetes mellitus with diabetic cataract - 1 Hyp hrt \T\ chr kdny dis w hrt fail and stg 1-4/unsp chr kdny - Other custodial (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 - 1 Type 2 diabetes mellitus with diabetic neuropathy, unsp - Heart failure, unspecified 05/01/2019 08:41 [facility] [place] TYPE: Emergency COMPLAINT: - HIGH BP DIAGNOSES: - halfway (current) use of aspirin - Essential (primary) hypertension - Hypothyroidism, unspecified - Elevated C-reactive protein (CRP) - Dependence on renal dialysis - Allergy status to oth drug/meds/biol subst status - Prsnl hx of TIA (TIA), and cereb infrc w/o resid deficits - Personal history of malignant neoplasm of breast - Major depressive disorder, single episode, unspecified - 1 Type 2 diabetes mellitus with diabetic neuropathy, unsp - 1 Type 2 diabetes mellitus with diabetic cataract - Other moth exterminator (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 - Allergy status to analgesic agent status 04/27/2019 02:37 RAD[facility] [place] TYPE: Emergency COMPLAINT: - MULTIPLE COMPLAINT DIAGNOSES: - Unspecified injury of head, initial encounter - oil heaterman (current) use of aspirin - Hypothyroidism, unspecified - Dependence on renal dialysis - Strain of muscle, fascia and tendon at neck level, init - 1 Type 2 diabetes mellitus with diabetic neuropathy, unsp - Contusion of unspecified part of head, initial encounter - Essential (primary) hypertension - Allergy status to analgesic agent status - 1 Type 2 diabetes mellitus with diabetic cataract - Concussion without loss of consciousness, initial encounter - Other moth exterminator (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 - Fall same lev from slip/trip w strike keith knight object, init - Personal history of malignant neoplasm of breast - Allergy status to oth drug/meds/biol subst status 04/04/2019 17:35 RAD[facility] [place] TYPE: Emergency COMPLAINT: - SHAKY,ALTERED LOC DIAGNOSES: - Allergy status to oth drug/meds/biol subst status - Weakness - Personal history of malignant neoplasm of breast - Other moth exterminator (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 - 1 Type 2 diabetes mellitus with diabetic neuropathy, unsp - Hypothyroidism, unspecified - 1 Hyp chr kidney disease w stage 5 chr kidney disease or ESRD - Allergy status to analgesic agent status - 1 Type 2 diabetes mellitus w diabetic chronic kidney disease - 1 Type 2 diabetes mellitus with diabetic cataract - Dependence on renal dialysis - Prsnl hx of TIA (TIA), and cereb infrc w/o resid deficits - halfway (current) use of aspirin - End stage renal disease - Major depressive disorder, single episode, unspecified 04/03/2019 14:36 [facility] [place] TYPE: Emergency COMPLAINT: - WEAKNESS DIAGNOSES: - Hypothyroidism, unspecified - Allergy status to analgesic agent status - Other custodial (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 - Allergy status to oth drug/meds/biol subst status - Essential (primary) hypertension - halfway (current) use of aspirin - 1 Type 2 diabetes mellitus with diabetic neuropathy, unsp - Weakness - 1 Type 2 diabetes mellitus with diabetic cataract - Prsnl hx of TIA (TIA), and cereb infrc w/o resid deficits - Personal history of malignant neoplasm of breast [facility] DIAGNOSES: - Pain in thoracic spine - Osteomyelitis, unspecified - back pain - Rib Pain - Discitis, unspecified, site unspecified 11/22/2018 23:03 RADHA [place] TYPE: Emergency COMPLAINT: - FALL DIAGNOSES: - Essential (primary) hypertension - Athscl heart disease of [place] coronary artery w/o ang pctrs - 1 Type 2 diabetes mellitus with diabetic neuropathy, unsp - Prsnl hx of TIA (TIA), and cereb infrc w/o resid deficits - Dependence on renal dialysis - Major depressive disorder, single episode, unspecified - Allergy status to oth drug/meds/biol subst status - Unspecified injury of head, initial encounter - Other custodial (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 - Fall same lev from slip/trip w strike agnst unsp obj, init - Hypothyroidism, unspecified - Personal history of malignant neoplasm of breast - Pain in right shoulder - Pain in right hip - Personal history of urinary (tract) infections 11/18/2018 10:38 RAD[facility] [place] TYPE: Emergency COMPLAINT: - FALL/LOWER BACK PAIN DIAGNOSES: - 1 Type 2 diabetes mellitus with diabetic neuropathy, unsp - Left upper quadrant pain - Contusion of abdominal wall, initial encounter - halfway (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 - [facility] - Personal history of malignant neoplasm of breast - Other custodial (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 - Allergy status to oth drug/meds/biol subst status - Dependence on renal dialysis - 1 Hypertensive chronic kidney disease w stg 1-4/unsp chr kdny - 1 Type 2 diabetes mellitus w diabetic chronic kidney disease - Hypothyroidism, unspecified - Athscl heart disease of [place] coronary artery w/o ang pctrs - Major depressive disorder, single episode, unspecified - Chronic kidney disease, unspecified - Fall same lev from slip/trip w strike [facility] [place] 09/30/2018 20:46 RAD[facility] [place] TYPE: Emergency COMPLAINT: - CHEST PAIN DIAGNOSES: - Chest pain, unspecified - Allergy status to oth drug/meds/biol subst status - Personal history of urinary (tract) infections - Personal history of nicotine dependence - Athscl heart disease of [place] coronary artery w/o ang pctrs - Major depressive disorder, single episode, unspecified - Essential (primary) hypertension - Hypothyroidism, unspecified - oil heaterman (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 - Personal history of malignant neoplasm of breast - Other custodial (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 - 1 Type 2 diabetes mellitus with diabetic neuropathy, unsp 08/31/2018 02:09 [facility] [place] TYPE: Emergency DIAGNOSES: - Shortness of Breath - Fluid overload, unspecified - Congestion/Difficulty Breathing/Emesis 08/18/2018 17:10 [facility] [place] TYPE: Emergency DIAGNOSES: - Shortness of Breath - Pleural effusion, not elsewhere classified - End stage renal disease - Difficulty Breathing, Swollen Legs INPATIENT VISIT TRACKING (12 MO.) 06/20/2019 05:00 [facility] ID Center TYPE: Cardiology DIAGNOSES: - Hyperkalemia - Hyperkalemia - Other fluid overload [facility]20[facility]2019 [facility] DIAGNOSES: - Osteomyelitis of vertebra, thoracic region - Left ventricular failure, unspecified - End stage renal disease - Dependence on renal dialysis - Hypoxemia - CHF - 1 Type 2 diabetes mellitus w diabetic chronic kidney disease - Anemia in chronic kidney disease - 1 Chronic kidney disease, stage 4 (severe) - Essential (primary) hypertension - Hypertensive urgency - oil heaterman (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 [facility] DIAGNOSES: - Dependence on renal dialysis - End stage renal disease - Essential (primary) hypertension - Osteomyelitis, unspecified - 1 Type 2 diabetes mellitus w diabetic chronic kidney disease - oil heaterman (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 - 1 Chronic kidney disease, stage 4 (severe) - Secondary multiple arthritis - Discitis, unspecified, thoracic region 12/04/2018 13:34 [facility] DIAGNOSES: - 1 Type 2 diabetes mellitus w diabetic chronic kidney disease - Renal osteodystrophy - oil heaterman (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 - Fx unsp part of nk of r femr, subs for clos fx w routn heal - Other malaise - 1 Chronic kidney disease, stage - Patient's noncompliance w oth medical treatment and regimen - Fracture of unsp part of neck of right femur, init - 1 Hyp chr kidney disease w stage 5 chr kidney disease or ESRD - 1 Chronic kidney disease, stage 4 (severe) - End stage renal disease - Anemia in chronic kidney disease 08/31/2018 02:09 [facility] [place] TYPE: General Medicine DIAGNOSES: - Pleural effusion, not elsewhere classified - Essential (primary) hypertension - Fluid overload, unspecified - Lobar pneumonia, unspecified organism [email or web address]
[2019-07-27] MEDS ORDERED: NORVASC5 MG PO (16:04)
[2019-07-27] MEDS ORDERED: ASPIR-LOW81 MG PO (16:06)
[2019-07-27] MEDS ORDERED: CALCIUM ACETAT667 MG PO (16:06)
[2019-07-27] MEDS ORDERED: THERA-D4000 UNIT PO (16:12)
[2019-07-27] MEDS ORDERED: CLONIDINE1 EACH TD (16:13)
[2019-07-27] MEDS ORDERED: LABETALOL HCL300 MG PO (16:14)
[2019-07-27] MEDS ORDERED: NEURONTIN100 MG PO (16:14)
[2019-07-27] MEDS ORDERED: LEVOTHYROXINE75 MCG PO (16:15)
[2019-07-27] MEDS ORDERED: LASIX80 MG PO (16:15)
[2019-07-27] MEDS ORDERED: LOSARTAN POTAS100 MG PO (16:16)
[2019-07-27] MEDS ORDERED: LIPITOR20 MG PO (16:16)
[2019-07-27] MEDS ORDERED: PROTONIX40 MG PO (16:17)
[2019-07-27] MEDS ORDERED: NIFEDIPINE ER90 M1 PO (16:17)
[2019-07-27] MEDS ORDERED: CATAPRES-TTS 11 EACH TD (16:22)
--- NOTE | 2019-07-28 13:10 | CONS ---
[facility] [address] [place], [place] [address] Signed DATE OF CONSULTATION: 07/27/2019 CONSULT PHYSICIAN: Lenin Chavira MD REQUESTING PHYSICIAN: Giovanni Jennings MD PROBLEM: Recurrent left pleural effusion. HISTORY: This 74-year-old woman is known to have chronic renal failure and undergoes dialysis 3 times a week. Her last dialysis was yesterday and next plan for tomorrow. She presented to [facility] and a chest x-ray was performed. She had some amount of dyspnea and a large left pleural effusion was noted. She was referred to the emergency room and was evaluated by Dr. Jennings. The chest x-ray performed at [facility] was forwarded to the hospital. The patient has had pleural effusion on the left side in the past. Last time she had this, she underwent thoracentesis at [facility]. The patient has had no hemoptysis. She does not have history of congestive heart failure proper. She is not known to have lung cancer. Consultation was made on the basis of her symptomatic left pleural effusion for consideration of thoracentesis. PAST MEDICAL HISTORY: Chronic renal failure. Creatinine currently nearly 7. SOCIAL HISTORY: [place] She gets her care from [facility] and goes to bed [facility]. REVIEW OF SYSTEMS: She denies chest pain, though she does have some shortness of breath and dyspnea with exertion. She had no hemoptysis. PHYSICAL EXAMINATION: An elderly woman, who is alert and oriented without sign of systemic toxicity. Trachea is midline. She has no jugular venous distention. Percussion of the chest shows dullness on the left side and good aeration on the right side. Chest x-ray was reviewed including chest x-ray from the past. She has a very large left pleural effusion extending within several centimeters of the apex. This is more than it has been in the past. Electronically Signed By: LENIN CHAVIRA MD 07/28/19 1310 PATIENT NAME: ARA CAMPOS CONSULTATION DATE OF : 47 REPORT #: [id number] PHYSICIAN: LENIN CHAVIRA MD PCP: LUIS MASON REPORT IS CONFIDENTIAL AND NOT TO BE RELEASED WITHOUT AUTHORIZATION [facility] [address] [place] [address] Signed ASSESSMENT AND PLAN: The patient has a symptomatic left pleural effusion, not uncommonly associated with chronic renal failure. This may be related to hypoalbuminemia or other causes. Request has been made for thoracentesis of the left pleural fluid on the basis of her symptoms of dyspnea. The risks of thoracentesis were reviewed in detail with the patient including, but not limited to bleeding, infection, pneumothorax, and so forth. She understands that and she wished to proceed. I did advise her that I would not likely recommend more than 2 L of pleural fluid removal on the increased hazard of expansion pulmonary edema and she understands that as well. MD FARZANA Kinsey/MIKE /[id number] cc: Giovanni Jennings MD [facility] Copies: GIOVANNI JENNINGS [facility] ~ Electronically Signed By: LENIN CHAVIRA MD 07/28/19 1310 PATIENT NAME: ARA CAMPOS CONSULTATION DATE OF : 47 REPORT #: [id number] PHYSICIAN: LENIN CHAVIRA MD PCP: LUIS MASON REPORT IS CONFIDENTIAL AND NOT TO BE RELEASED WITHOUT AUTHORIZATION
--- NOTE | 2019-07-28 13:10 | OR ---
[facility] [address] [place], [place] [address] Signed DATE OF OPERATION: 07/27/2019 SURGEON: Lenin Chavira MD PREOPERATIVE DIAGNOSES: 1. Large left symptomatic pleural effusion. 2. Chronic renal failure with dialysis. POSTOPERATIVE DIAGNOSES: 1. Large left symptomatic pleural effusion. 2. Chronic renal failure with dialysis. PROCEDURE: Left thoracentesis (2 L). ANESTHESIA: 1% lidocaine. INDICATIONS: This 74-year-old woman has chronic renal failure and undergoes dialysis 3 times a week. She presented to the [facility] today with shortness of breath and a chest x-ray was performed showing a left large pleural effusion. She has had pleural effusion in the past previously drained in [facility]. She undergoes dialysis 3 days a week, had dialysis yesterday and planning for dialysis tomorrow. Request has been made for thoracentesis on the basis of her symptomatic left pleural effusion. She understands the risks of bleeding, infection, pneumothorax, and of course, probable recurrence of the pleural fluid over time. She understands that she wished to proceed. FINDINGS: Straw-colored fluid was noted from left pleural space. It was clear. There was no sign of hemorrhage. Almost 2 L of fluid were aspirated. Further thoracentesis was deemed inadvisable. The patient did have a slight cough at conclusion and some re-expansion of left pleural space pain, which abated rapidly. A postprocedure chest x-ray shows marked improvement of the left pleural space. There is some residual left basilar fluid and likely significant atelectasis. There is no pneumothorax to my examination. DESCRIPTION OF PROCEDURE: The patient was placed in upright position with arms draped over a Cordova stand with pillows. The tip of the left scapula was identified and the skin marked. The left posterior thorax was prepared with a chlorhexidine solution and draped sterilely. 1% Electronically Signed By: LENIN CHAVIRA MD 07/28/19 1310 PATIENT NAME: ARA CAMPOS OPERATIVE REPORT DATE OF : 47 REPORT #: [id number] PHYSICIAN: LENIN CHAVIRA MD PCP: LUIS MASON REPORT IS CONFIDENTIAL AND NOT TO BE RELEASED WITHOUT AUTHORIZATION [facility] [address] [place], [place] [address] Signed lidocaine was injected directly over the 7th rib. The pleural space was entered carefully showing straw-colored non bloody fluid. An incision was made with an #11 blade at that site and using a contained thoracentesis catheter system, the pleural space entered with aspiration. When straw-colored fluid was noted, angiocatheter was passed over the needle and the needle was removed. A three-way stopcock apparatus had been set up previously and was attached to the site. Aspiration showed straw-colored fluid. No sign of blood or other problems. Using the side port, a Vacutainer bottle was filled promptly with 1 L of straw-colored fluid and second liter then used. At approximately 1.5 L of fluid withdrawal, the patient did have a bit of a cough and was beginning to get some re-expansion pleural space pain. 2 L of fluid were aspirated completely and the catheter was removed and a Band-Aid applied. The patient was placed in upright position and her cough quickly abated as did her discomfort. A postprocedure chest x-ray showed good expansion of the lung, marked improvement of the pleural effusion, and some basilar atelectasis. MD FARZANA Kinsey/ILDEFONSOL /[id number] cc: [facility] Giovanni Jennings MD Copies: [facility] GIOVANNI JENNINGS MD ~ Electronically Signed By: LENIN CHAVIRA MD 07/28/19 1310 PATIENT NAME: ARA CAMPOS OPERATIVE REPORT DATE OF : 47 REPORT #: [id number] PHYSICIAN: LENIN CHAVIRA MD PCP: LUIS MASON REPORT IS CONFIDENTIAL AND NOT TO BE RELEASED WITHOUT AUTHORIZATION
--- NOTE | 2019-07-29 19:55 | EKG ---
[facility] [address] [facility] [place] [address] Signed Sinus rhythm with short AK Right bundle branch block Abnormal ECG When compared with ECG of 04-APR-2019 19:34, T wave inversion now evident in Anterior leads QT has lengthened Confirmed by GRACIELA GONZALES MD ([id number]) on 07/29/2019 7:55:38 PM Electronically Signed By: GRACIELA GONZALES MD 07/29/191954 PATIENT NAME: ARA CAMPOS Electrocardiogram DATE OF : 47 PHYSICIAN: GRACIELA GONZALES MD REPORT #: [id number] REPORT IS CONFIDENTIAL AND NOT TO BE RELEASED WITHOUT AUTHORIZATION
== END 2019-07-27 18:00 | disposition home or self-care (01) ==
LOC: ED 14:46
DX: J90 Pleural effusion, not elsewhere classified (principal); I10 Essential (primary) hypertension; I25.10 Atherosclerotic heart disease of native coronary artery without angina pectoris; E11.40 Type 2 diabetes mellitus with diabetic neuropathy, unspecified; F32.9 Major depressive disorder, single episode, unspecified; E03.9 Hypothyroidism, unspecified; Z88.8 Allergy status to other drugs, medicaments and biological substances; Z88.6 Allergy status to analgesic agent; Z79.899 Other long term (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; Z79.82 Long term (current) use of aspirin
CPT/HCPCS: 71045; 80053; 84484; 85025; 93005; 93010; 99285-25

== ENCOUNTER 2019-08-24 16:38 | Emergency (ER) | payer MEDICARE, OTHER ==
[~2019-08-24] VITALS: Ht 172.7 cm; Wt 74.8 kg
--- OUTSIDE RECORDS SUMMARY | ~2019-08-24 | XMS | Encounter Summary ---
Demographics + + + | Address | [address] | | | [place] [address] | + + + | Home Phone | | + + + | Preferred Language | Unknown | + + + | Marital Status | Single | + + + | Mormonism Affiliation | Unknown | + + + | Race | Unknown | + + + | Ethnic Group | Unknown | + + + Author + + + | Author | [facility] | | | and [place] | + + + | Organization | [facility] | | | and [place] | + + + | Address | Unknown | + + + | Phone | Unavailable | + + + Support + + + + + | Name | Relationship | Address | Phone | + + + + + | India Tilley | ECON | [id number] | | | | | [place], [place] | | | | | [address] | | + + + + + | Yina La | ECON | Unknown | | + + + + + | Yina Peterson | ECON | Unknown | | + + + + + | Leatha Casillas | ECON | Unknown | | + + + + + Care Team Providers + +------+ + | Care Roof Painter Name | Role | Phone | + +------+ + PCP | Unavailable | + +------+ + Encounter Details +--------+ + + + + | Date | Type | Department | Care Team | Description | +--------+ + + + + | 10/07/ | Orders Only | [facility] [place] | Gopi Muñoz | Chronic kidney | | 2018 | | NEPHROLOGY [address] | M, DO [address] | disease, stage V | | | | [address] | [place] | ([facility]) (Primary Dx) | | | | [place], [place] | [place], [place] | | | | | [address] | [address] | | | | | [phone] | | | +--------+ + + + + Social History + +-------+ +--------+------+ | Tobacco Use | Types | Packs/Day | Years | Date | | | | | Used | | + +-------+ +--------+------+ | Never Smoker | | | | | + +-------+ +--------+------+ + + +---------+ + | Alcohol Use | Drinks/Week | oz/Week | Comments | + + +---------+ + | No | 0 Standard drinks | 0.0 | | | | or equivalent | | | + + +---------+ + + + + | Sex Assigned at | Date Recorded | | | | + + + | Not on file | | + + + + + + + | Job Start Date | Occupation | Industry | + + + + | Not on file | Not on file | Not on file | + + + + + + + + | Travel History | Travel Start | Travel End | + + + + + + | No recent travel history available. | + + documented as of this encounter Progress Notes Celeste Butler RN - 10/07/2017 9:01 AM PSTLabs for upcoming nephrology [facility] signed by Celeste Butler RN at 10/07/2017 9:03 AM PSTdocumented in this encounter Plan of Treatment + +------+--------+ + + | Name | Type | Priori | Associated Diagnoses | Order Schedule | | | | ty | | | + +------+--------+ + + | CBC with | Lab | Routin | Chronic kidney | Expected: | | Differential | | e | disease, stage V | 11/01/2017, Expires: | | | | | (HCC) | 10/07/2018 | + +------+--------+ + + | Comprehensive | Lab | Routin | Chronic kidney | Expected: | | Metabolic Panel | | e | disease, stage V | 11/01/2017, Expires: | | | | | (HCC) | 10/07/2018 | + +------+--------+ + + | Protein, Urine, 24Hr | Lab | Routin | Chronic kidney | Expected: | | | | e | disease, stage V | 11/01/2017, Expires: | | | | | (HCC) | 10/07/2018 | + +------+--------+ + + | Creatinine | Lab | Routin | Chronic kidney | Expected: | | Clearance, Result | | e | disease, stage V | 11/01/2017, Expires: | | | | | (HCC) | 10/07/2018 | + +------+--------+ + + | Phosphorus | Lab | Routin | Chronic kidney | Expected: | | | | e | disease, stage V | 11/01/2017, Expires: | | | | | (HCC) | 10/07/2018 | + +------+--------+ + + | Parathyroid Hormone, | Lab | Routin | Chronic kidney | Expected: | | Intact | | e | disease, stage V | 11/01/2017, Expires: | | | | | (HCC) | 10/07/2018 | + +------+--------+ + + | Vitamin D, | Lab | Routin | Chronic kidney | Expected: | | Deficiency Screen | | e | disease, stage V | 11/01/2017, Expires: | | (25-Hydroxy) | | | (HCC) | 10/07/2018 | + +------+--------+ + + documented as of this encounter Visit Diagnoses + + | Diagnosis | + + | Chronic kidney disease, stage V (HCC) - Primary Chronic kidney disease, Stage V | + + documented in this encounter"
--- OUTSIDE RECORDS SUMMARY | ~2019-08-24 | XMS | Encounter Summary ---
Demographics + + + | Address | [address] | | | [place] [address] | + + + | Home Phone | | + + + | Preferred Language | Unknown | + + + | Marital Status | Single | + + + | Presybeterian Affiliation | Unknown | + + + | Race | Unknown | + + + | Ethnic Group | Unknown | + + + Author + + + | Author | [facility] | | | and [place]it[place] | + + + | Organization | [facility] | | | and [place] | + + + | Address | Unknown | + + + | Phone | Unavailable | + + + Support + + + + + | Name | Relationship | Address | Phone | + + + + + | India Tilley | ECON | [id number] | | | | | [place], [place] | | | | | [address] | | + + + + + | Yina La | ECON | Unknown | | + + + + + | Yina Peterson | ECON | Unknown | | + + + + + | Leatha Casillas | ECON | Unknown | | + + + + + Care Team Providers + +------+ + | Care Home Worker Name | Role | Phone | + +------+ + PCP | Unavailable | + +------+ + Reason for Visit + + + | Reason | Comments | + + + | Insurance | | | Authorization | | + + + Encounter Details +--------+ + + + + | Date | Type | Department | Care Team | Description | +--------+ + + + + | 01/06/ | Telephone | [facility] | Scott Koroma, | Insurance | | 2019 | | ORTHOPEDIC SURGERY | [address] | Authorization | | | | [address] [facility] | [place] | | | | | [place] | [address] | | | | | [address] | | | | | | [phone] | | | +--------+ + + + [...] Not on filedocumented as of this encounter Visit Diagnoses Not on filedocumented in this encounter"
--- OUTSIDE RECORDS SUMMARY | ~2019-08-24 | XMS | Encounter Summary ---
Demographics + + + | Address | [address] | | | [place] [address] | + + + | Home Phone | | + + + | Preferred Language | Unknown | + + + | Marital Status | Single | + + + | Scientology Affiliation | Unknown | + + + | Race | Unknown | + + + | Ethnic Group | Unknown | + + + Author + + + | Author | [facility] | | | and [place] | + + + | Organization | [facility] | | | and [place] | + + + | Address | Unknown | + + + | Phone | Unavailable | + + + Support + + + + + | Name | Relationship | Address | Phone | + + + + + | India Tilley | ECON | [address] | | | | | [place], [place] | | | | | [address] | | + + + + + | Yina La | ECON | Unknown | | + + + + + | Yina Peterson | ECON | Unknown | | + + + + + | Leatha Casillas | ECON | Unknown | | + + + + + Care Team Providers + +------+ + | Care Railroad Brake Repairer Name | Role | Phone | + +------+ + PCP | Unavailable | + +------+ + Reason for Visit + + + | Reason | Comments | + + + | Medication Refill | | + + + Encounter Details +--------+--------+ + + + | Date | Type | Department | Care Team | Description | +--------+--------+ + + + | 01/30/ | Refill | [facility] | Scott Koroma, | Medication Refill | | 2019 | | ORTHOPEDIC SURGERY | MD [address] | | | | | [address] [facility] | [place] | | | | | [place] | [address] | | | | | [address] | | | | | | [phone] | | | +--------+--------+ + + + Social History + +-------+ [...] neck of right femur, initial encounter (HCC) - Primary | + + | Right hip pain Pain in joint, pelvic region and thigh | + + documented in this encounter"
--- OUTSIDE RECORDS SUMMARY | ~2019-08-24 | XMS | Encounter Summary ---
Demographics + + + | Address | [address] | | | [place] [address] | + + + | Home Phone | | + + + | Preferred Language | Unknown | + + + | Marital Status | Single | + + + | Sabianist Affiliation | Unknown | + + + | Race | Unknown | + + + | Ethnic Group | Unknown | + + + Author + + + | Author | [facility] | | | and Kamaljit[place] | + + + | Organization | [facility] | | | and [place] | + + + | Address | Unknown | + + + | Phone | Unavailable | + + + Support + + + + + | Name | Relationship | Address | Phone | + + + + + | India Tilley | ECON | [address] | | | | | [place], [place] | | | | | [address] | | + + + + + | Yina La | ECON | Unknown | | + + + + + | Yina Peterson | ECON | Unknown | | + + + + + | Leatha Casillas | ECON | Unknown | | + + + + + Care Team Providers + +------+ + | Care President [employer] Name | Role | Phone | + +------+ + PCP | Unavailable | + +------+ + Reason for Visit + + + | Reason | Comments | + + + | Follow-up | ESRD | + + + Evaluate & Treat (Routine) +--------+--------+ + + + + | Status | Reason | Specialty | Diagnoses / | Referred By | Referred To | | | | | Procedures | Contact | Contact | +--------+--------+ + + + + | Closed | | Nephrology | Diagnoses | Unknown, | Stroemel, | | | | | ESRD (end | Practitioner | Gopi Roman DO | | | | | stage renal | MD Phone: | [address] [place] [address] | | | | | disease) | | Joredn Sol | | | | | ([facility]) | | [address] | | | | | Procedures | Fax: | [place] | | | | | [place] OFFICE | | [address] Phone: | | | | | OUTPATIENT | | [phone] | | | | | VISIT 25 | | Fax: | | | | | MINUTES | | [phone] | +--------+--------+ + + + + Encounter Details +--------+ + + + + | Date | Type | Department | Care Team | Description | +--------+ + + + + | 05/11/ | Off-Site | [facility] [place] | Gopi Muñoz | ESRD (end stage | | 2019 | Visit | NEPHROLOGY [address] | M, DO [address] | renal disease) on | | | | [address] | [place], [place] [address] | dialysis (HCC) | | | | [place] | [place] | (Primary Dx) | | | | [address] | [address] | | | | | [phone] | | | +--------+ + + + [...] + + documented as of this encounter Last Filed Vital Signs + + + + + | Vital Sign | Reading | Time Taken | Comments | + + + + + | Blood Pressure | 194/72 | 2019 12:08 PM | | | | | PDT | | + + + + + | Pulse | 72 | 2019 12:08 PM | | | | | PDT | | + + + + + | Temperature | 36.6 C (97.8 F) | 2019 12:08 PM | | | | | PDT | | + + + + + | Respiratory Rate | 16 | 2019 12:08 PM | | | | | PDT | | + + + + + | Oxygen Saturation | - | - | | + + + + + | Inhaled Oxygen | - | - | | | Concentration | | | | + + + + + | Weight | - | - | | + + + + + | Height | - | - | | + + + + + | Body Mass Index | - | - | | + + + + + documented in this encounter Functional Status + + + [...] + + documented as of this encounter Patient Instructions Patient Instructions Gopi Muñoz DO - 2019 12:00 PM [id number] sig javi by Gopi Muñoz DO at 2019 8:58 PM PDT documented in this encounter Progress Notes Gopi Muñoz DO - 2019 12:00 PM PDT Subjective: DIALYSIS NOTE Patient ID: Estefani Tilley is a 74 y.o. female. HPI Comments: I inadvertently missed Estefani on dialysis rounds at [facility] on 05/08/2019. 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 There has been a great deal of confusion about her outpatient antibiotics, and hypertension regimen, therefore, I asked her to my office today. Apparently she was discharged from [facility] on 03/31/2019 with acute low back pain, fluid collection and a diagnosis of T11-T12 verteb ral discitis/osteomyelitis. CT-guided aspiration/biopsy did not reveal an organism. Theref ore she was discharged on 03/31 on outpatient IV Vanco, 500 mg, Q. HD treatment MWF, and IV cefepime daily through 05/04/2019. I was called by the [facility] staff that there was concern w hether she should go 1 more week, due to concern for absenteeism. However, Estefani states th at she only missed 2 doses. Additionally, she denies fever, chills, or any worsening back pain. Additionally, her bloo d pressure has been quite high at her treatments. I lengthy discussion with her that she wo uld benefit from taking her nifedipine XL, labetalol , Lasix, and clonidine TTS patch. I e xplained that all these meds are beneficial to control her blood pressure and lower her stro ke risk. Her sister, India, was present throughout this discussion. Ultimately, she verball y agrees to go to [facility], [place], and lease picker the meds. (She does appear to a mbulate independently with only a cane for light assistance). PAST MEDICAL HISTORY: 1. ESRD 2 diabetic glomerulosclerosiswith the patient beginning Inpt HD in 018and then was DC to [facility] [place]. Unfortunat brandy, she has had intermittent periods where she would take unexplained Holidays form her HD txs, AMA, and then, return. 2. Type 2 DM x 30 years per the pt with retinopathy, nephropathy, and possibly neuropathy . 3. Hypertension x 10 years per the pt. 4.Anemia 2 to CKD treated with EPO, and IV Fe. 5. CKD/MBD2to CKD treated with Renvela, and Hectorol. 6. Hyperlipidemia treated with a statin Rx, unknownduration per the pt. 7. Hypothyroidism, of unknown duration, she is not completely sure. MEDS: Outpatient Medications Marked as Taking for the 05/11/19 encounter (Off-Site Visit) with Ant Muñoz, DO Medication Sig Dispense Refill albuterol 90 mcg/puff inhaler Inhale 2 puffs into the lungs 4 times daily as needed for Shortness of Breath. ARTIFICIAL TEAR SOLUTION OP Place 1-2 drops into both eyes as needed (for dry eyes). aspirin 81 mg EC tablet Take 81 mg by mouth Daily. b complex-vitamin c-folic acid (NEPHRO-MANUEL) tablet Take 1 tablet by mouth Daily. calcium acetate (PHOSLO) 667 mg capsule Take 1 capsule by mouth 3 times daily (with christa ls). 180 capsule 0 Cholecalciferol 4000 units TABS Take 4,000 Units by mouth Daily. clonidine (CATAPRES) 0.3 mg/[address] 1 patch onto the skin Once a week. 4 patc h 11 [START ON 05/12/2019] epoetin karthik (EPOGEN, PROCRIT) 4,000 units/mL injection Inject 0.8 5 mL's into the vein Three times a week. furosemide (LASIX) 80 mg tablet Take 1 tablet by mouth Daily. 90 tablet 3 gabapentin (NEURONTIN) 100 mg capsule Take 2 capsules by mouth every morning. hydrophilic ointment Apply 1 Application topically Daily. For dry skin Insulin Pen Needle 31G X 5 MM MISC by Does not apply route. labetalol (NORMODYNE) 300 MG tablet Take 1 tablet by mouth 2 times daily. 180 tablet 3 Lancets MISC by Does not apply route. levothyroxine (SYNTHROID, LEVOTHROID) 75 MCG tablet Take 75 mcg by mouth every morning (before breakfast). [DISCONTINUED] montelukast (SINGULAIR) 10 mg tablet Take 10 mg by mouth nightly. For as thma or allergies Nifedipine (PROCARDIA XL) 90 mg ER tablet Take 1 tablet by mouth Daily. 90 tablet 3 olopatadine (PATANOL) 0.1% ophthalmic solution Place 1-2 drops into both eyes 2 times d aily. ondansetron (ZOFRAN) 4 mg tablet Take 1 tablet by mouth every 6 hours as needed for Ziggy sea. 20 tablet 0 pantoprazole (PROTONIX) 40 mg tablet Take 40 mg by mouth every morning (before breakfas t). Allergies Allergen Reactions Amoxicillin Other (See Comments) Patient stated she can't tolerate amoxicillin and stated its hard on her stomach. Lisinopril Pt states she does not remember what was the reaction she had to lisinopril. I asked her if it gave her a cough and she said "I cant remember, maybe it made me sick to my stomach". Naprosyn [Naproxen] Objective: BP 194/72 | Pulse 72 | Temp 36.6 C (97.8 F) | Resp 16 EDW 62kg Physical Exam Heart: Regular rate and rhythm with no S3, S4, murmur or rub. Lungs: CTA bilaterally. No rales or wheezes. PICC line right chest is clear, dry, nonten jorge. Abdomen: soft, obese, nontender, NABS. Extremities: no edema, no clubbing, or cyanosis. No foot ulcers. LAB: BUN 46, Cr 7.29, K+ 4.9, HCO3 24, HbA1c =4.8%, albumin 3.3, Ca++ 8.8, P04 5.9, PT H 186, Hb 9.7, T Sat = 35%, ferritin 549, spKT/V = 1.55. Assessment: 1. ESRD --clinically she appears well dialyzed on N17 H, QB 400, QD 600, 2K +, 32 HCO3, 3 .5 hours. 2. Discitis/osteomyelitis T11-T12-- s/p 6 weeks Rx with IV, Vanco/cefepime. I think at t his point she needs further ID input and it may be most efficacious to get her back to Dr. Jessie Jansen, [facility], [place]. Will repeat one more ESR and CRP, tomorrow on HD. Currently she has no increased pain or constitutional symptoms. 2. Hypertension--she verbally agrees to take her meds more consistently to minimize stro ke risk and improve compliance. 3. Anemia 2 to CKD-- we will increase her EPO by 25% to target Hb 10-11 g/dl.her ir on stores appear adequate. 4. Nutrition--she was encouraged to maximize her daily intake of high biological value pro tein. 5. Type 2 DM--excellent control by her HbA1c. 6. CKD/MBD--currently stable without Hectorol. 7. Hypothyroidism--unable to locate her most recent TSH. However clinically, she appears e uthyroid. Plan: 1. Given the complexity of her case will make contact with TAMARA Payton, as above. Will DC outpatient IV antibiotics at this point, as by her history she appears chronologica lly to be at 6 weeks of Rx. 2. Again, we will recheck ESR, CRP tomorrow. 3. I told her to make an effort to go to write a tonight to lease picker her meds and that she should take the first dose in each AM prior to dialysis as well. She was A&O x3 during this discussion. I think that she understands her risk of CV disease, and stroke if she does no t take her meds. 4. Will relay the above to the charge nurse at [facility], LISA Marshall by secure text. 5. My partner, Dr. Magui Moseley will check in on her in 2 weeks at [facility]. 6. Lastly she is concerned about breakthrough pain. I agreed to give her generic Vicodin 5 mg / 325 mg, 1 tab, Q 12 Hours, #40, no refill. 7. Also, Estefani and her family would like to explore whether the [facility] or [facility] are could h elp transport her back and forth to the [facility] clinic for her treatments, thrice weekly. De La Torre states that financially this is becoming a hardship for her. Electronically signed by Gopi Muñoz DO. 05/11/19 11:02 CC: Blaine Jansen MD, [place], [facility], [place], [place] [facility], [place], [place]. document ed in this encounter Plan of Treatment Not on filedocumented as of this encounter Procedures + +--------+ + + + | Procedure Name | Priori | Date/Time | Associated Diagnosis | Comments | | | ty | | | | + +--------+ + + + | LABS - EXTERNAL SCAN | | 05/12/2019 | | Results for this | | | | 12:00 AM | | procedure are in the | | | | PDT | | results section. | + +--------+ + + + documented in this encounter Results LABS - EXTERNAL SCAN (05/12/2019 12:00 AM PDT) + + + | Narrative | Performed At | + + + | Ordered by an | | | unspecified provider. | | + + + documented in this encounter Visit Diagnoses + + | Diagnosis | + + | ESRD (end stage renal disease) on dialysis (HCC) - Primary End stage renal disease | + + documented in this encounter
--- OUTSIDE RECORDS SUMMARY | ~2019-08-24 | XMS | Encounter Summary ---
Demographics + + + | Address | [address] | | | [place] [address] | + + + | Home Phone | | + + + | Preferred Language | Unknown | + + + | Marital Status | Single | + + + | Voodoo Affiliation | Unknown | + + + | Race | Unknown | + + + | Ethnic Group | Unknown | + + + Author + + + | Author | [facility] | | | and [place] | + + + | Organization | [facility] | | | and [place] | + + + | Address | Unknown | + + + | Phone | Unavailable | + + + Support + + + + + | Name | Relationship | Address | Phone | + + + + + | India Tilley | ECON | [address] | | | | | [place], [place] | | | | | [address] | | + + + + + | Yina La | ECON | Unknown | | + + + + + | Yina Peterson | ECON | Unknown | | + + + + + | Leatha Casillas | ECON | Unknown | | + + + + + Care Team Providers + +------+ + | Care Art Consultant Name | Role | Phone | + +------+ + PCP | Unavailable | + +------+ + Encounter Details +--------+ + + + + | Date | Type | Department | Care Team | Description | +--------+ + + + + | 06/23/ | Hospital | [facility] | Patricia, | | | 2006 - | Encounter | MED CTR CANCER | Venkatesh Forte MD [address] | | | | | [place] [address] | [facility] | | | 07/13/ | | [place] | [place] [address] | | | 2006 | | [address] | [phone] | | | | | [phone] | | | +--------+ + + + [...]
--- OUTSIDE RECORDS SUMMARY | ~2019-08-24 | XMS | Encounter Summary ---
Demographics + + + | Address | [address] | | | [place] [address] | + + + | Home Phone | | + + + | Preferred Language | Unknown | + + + | Marital Status | Single | + + + | Uatsdin Affiliation | Unknown | + + + | Race | Unknown | + + + | Ethnic Group | Unknown | + + + Author + + + | Author | [facility] | | | and [place] | + + + | Organization | [facility] | | | and [place] | + + + | Address | Unknown | + + + | Phone | Unavailable | + + + Support + + + + + | Name | Relationship | Address | Phone | + + + + + | India Tilley | ECON | [address] | | | | | [place], [place] | | | | | [address] | | + + + + + | Yina La | ECON | Unknown | | + + + + + | Yina Peterson | ECON | Unknown | | + + + + + | Leatha Casillas | ECON | Unknown | | + + + + + Care Team Providers + +------+ + | Care Specifications Writer Name | Role | Phone | + +------+ + PCP | Unavailable | + +------+ + Encounter Details +--------+ + + + + | Date | Type | Department | Care Team | Description | +--------+ + + + + | 12/20/ | Hospital | [facility] | [facility], | | | 2008 - | Encounter | MED CTR CANCER | Venkatesh Forte MD [address] | | | | | [place] [address] | [facility] | | | 01/10/ | | [place], [place] | [place] [address] | | | 2008 | | [address] | [phone] | | | | | [phone] | | | +--------+ + + + [...]
--- OUTSIDE RECORDS SUMMARY | ~2019-08-24 | XMS | Encounter Summary ---
Demographics + + + | Address | [address] | | | [place] [address] | + + + | Home Phone [...] + + + | Author | [facility] | | | and [place] | + + + | Organization | [facility] | | | and [place] | + + + | Address | Unknown | + + + | Phone | Unavailable | + + + Support + + + + + | Name | Relationship | Address | Phone | + + + + + | India Tilley | ECON | [address] | | | | | [place], [place] | | | | | [address] | | + + + + + | Yina La | ECON | Unknown | | + + + + + | Yina Peterson | ECON | Unknown | | + + + + + | Leatha Casillas | ECON | Unknown | | + + + + + Care Team Providers + +------+ + | Care College Dean Name | Role | Phone | + +------+ + | Dangelo Renato Barr DIPESH | PCP | | + +------+ + Encounter Details +--------+ + + + + | Date | Type | Department | Care Team | Description | +--------+ + + + + | 07/12/ | Telephone | [facility] | [facility] | | | 2019 | | CENTER INTRA OP | [address] | | | | | [address] | [place] | | | | | [place], [place] | [place] [address] | | | | | [address] | [phone] | | | | | [phone] | | | +--------+ + + + [...]
--- OUTSIDE RECORDS SUMMARY | ~2019-08-24 | XMS | Encounter Summary ---
Demographics + + + | Address | [address] | | | [place] [address] | + + + | Home Phone | | + + + | Preferred Language | Unknown | + + + | Marital Status | Single | + + + | Jain Affiliation | Unknown | + + + | Race | Unknown | + + + | Ethnic Group | Unknown | + + + Author + + + | Author | [facility] | | | and [place] | + + + | Organization | [facility] | | | and [place] | + + + | Address | Unknown | + + + | Phone | Unavailable | + + + Support + + + + + | Name | Relationship | Address | Phone | + + + + + | India Tilley | ECON | [address] | | | | | [place], [place] | | | | | [address] | | + + + + + | Yina La | ECON | Unknown | | + + + + + | Yina Peterson | ECON | Unknown | | + + + + + | Leatha Casillas | ECON | Unknown | | + + + + + Care Team Providers + +------+ + | Care Media Planner / Buyer Name | Role | Phone | + +------+ + PCP | Unavailable | + +------+ + Encounter Details +--------+ + + + + | Date | Type | Department | Care Team | Description | +--------+ + + + + | 05/18/ | Orders Only | [facility] | Fabiana Miller, | | | 2018 | | INFECTIOUS DISEASE | Nick Apodaca MD | | | | | [address] | [address] | | | | | [place], [place] | [place] [address] | | | | | [address] | [phone] | | | | | [phone] | | | +--------+ + + + [...] | + +--------+ + + + | CULTURE, BLOOD, 2ND | Routin | 05/18/2019 | | Results for this | | SPECIMEN (NON-ORD) | e | 3:48 PM | | procedure are in the | | | | PDT | | results section. | + +--------+ + + + documented in this encounter Results Culture, Blood, 2nd Specimen (05/18/2019 3:48 PM PDT) + + + + + [...] | | REFERENCE | | | | [facility];[address] | | LAB | | | | [address];[place] | | [facility] | | | | [id number]: Testing | | LABORATORY | | | | performed at [facility], [address] | | | | | | [facility], | | | | | | [place] [address] | | | | + + + + + + + + | Specimen | + + | | + + + + + + + | Performing | Address | City/State/Zipcode | Phone Number | | Organization | | | | + + + + + | REFERENCE LAB | [address] [place] [address] | [place] [address] | [phone] | | [facility] | Blvd. | | | | LABORATORY | | | | + + + + + | REFERENCE LAB | [address] [place] [address] | [place] [address] | | | [facility] | Blvd. | | | | LABORATORY | | | | + + + + + documented in this encounter Visit Diagnoses Not on filedocumented in this encounter"
--- OUTSIDE RECORDS SUMMARY | ~2019-08-24 | XMS | Encounter Summary ---
Demographics + + + | Address | [address] | | | [place] [address] | + + + | Home Phone | | + + + | Preferred Language | Unknown | + + + | Marital Status | Single | + + + | Confucianist Affiliation | Unknown | + + + | Race | Unknown | + + + | Ethnic Group | Unknown | + + + Author + + + | Author | [facility] | | | and [place] | + + + | Organization | [facility] | | | and [place] | + + + | Address | Unknown | + + + | Phone | Unavailable | + + + Support + + + + + | Name | Relationship | Address | Phone | + + + + + | India Tilley | ECON | [address] | | | | | [place], [place] | | | | | [address] | | + + + + + | Yina La | ECON | Unknown | | + + + + + | Yina Peterson | ECON | Unknown | | + + + + + | Leatha Casillas | ECON | Unknown | | + + + + + Care Team Providers + +------+ + | Care Vice President Of Nursing Name | Role | Phone | + +------+ + PCP | Unavailable | + +------+ + Encounter Details +--------+ + + + + | Date | Type | Department | Care Team | Description | +--------+ + + + + | 03/24/ | Abstract | [facility] [place] | K[place], | | | 2017 | | NEPHROLOGY [address] | [address] | | | | | [address] | [address], [place] | | | | | [place] | [address] | | | | | [address] | [address] | | | | | [phone] | | | +--------+ + + + [...] + documented as of this encounter Progress Tatiana Gamble - 03/24/2017 1:03 PM PDTOutside records: Referral packet received from Dora Bruno PA-C, [facility] to nephrology. Sent to Malik owens signed by Tatiana Rendon at 03/24/2017 1:05 PM PDTdocumented in this encounter Plan of Treatment Not on filedocumented as of this encounter Visit Diagnoses Not on filedocumented in this encounter"
--- OUTSIDE RECORDS SUMMARY | ~2019-08-24 | XMS | Encounter Summary ---
Demographics + + + | Address | [address] | | | [place] [address] | + + + | Home Phone | | + + + | Preferred Language | Unknown | + + + | Marital Status | Single | + + + | Congregation Affiliation | Unknown | + + + | Race | Unknown | + + + | Ethnic Group | Unknown | + + + Author + + + | Author | [facility] | | | and [place] | + + + | Organization | [facility] | | | and [place] | + + + | Address | Unknown | + + + | Phone | Unavailable | + + + Support + + + + + | Name | Relationship | Address | Phone | + + + + + | India Tilley | ECON | [phone] | | | | | [place], [place] | | | | | [address] | | + + + + + | Yina La | ECON | Unknown | | + + + + + | Yina Peterson | ECON | Unknown | | + + + + + | Leatha Casillas | ECON | Unknown | | + + + + + Care Team Providers + +------+ + | Care Pipeman Name | Role | Phone | + +------+ + PCP | Unavailable | + +------+ + Encounter Details +--------+---------+ + + + | Date | Type | Department | Care Team | Description | +--------+---------+ + + + | 01/04/ | Surgery | [facility] | Santos Stephenson | Right Transposed | | 2018 | | MED CTR OR INTRA OP | MD Kinga, FACS [address] | Basilic Vein to | | | | [address] | [address] [place] | Proximal Radial | | | | [place], [place] | [place] [address] | Artery | | | | [address] | [phone] | | | | | [phone] | | | +--------+---------+ + + + [...] + + + | Blood Pressure | 162/71 | 01/04/2018 5:00 PM | | | | | PDT | | + + + + + | Pulse | 77 | 01/04/2018 5:00 PM | | | | | PDT | | + + + + + | Temperature | 36.5 C (97.7 F) | 01/04/2018 3:54 PM | | | | | PDT | | + + + + + | Respiratory Rate | 14 | 01/04/2018 4:30 PM | | | | | PDT | | + + + + + | Oxygen Saturation | 95% | 01/04/2018 5:00 PM | | | | | PDT | | + + + + + | Inhaled Oxygen | - | - | | | Concentration | | | | + + + + + | Weight | 77.6 kg (171 lb 1.2 | 01/04/2018 11:43 AM | | | | oz) | PDT | | + + + + + | Height | 172.7 cm (5' 8") | 01/04/2018 11:43 AM | | | | | PDT | | + + + + + | Body Mass Index | 26.01 | 01/04/2018 11:43 AM | | | | | PDT | | + + + + + documented in this encounter Discharge Instructions Instructions Anat Alvarado RN - 01/04/2018 Anesthesia safety Follow all instructions you are given for how long not to eat or drink before your proce dure. Be sure your doctor knows what medicines and drugsyou take. This includes ugiv-jiu-cgt nter medicines, herbs, supplements, alcohol or other drugs. You will be asked when those wer e last taken. Have an adult family member or friend drive you home after the procedure. For the first 24 hours after your surgery: Do not drive or use heavy equipment. Do not make important decisions or sign legal documents. If important decisions or signi ng legal documents is necessary during the first 24 hours after surgery, have a trusted fami ly member or spouse act on your behalf. Avoid alcohol. Havea responsible adultstay with you.He or shecan watch for problems and help ke ep you safe. Date Last Reviewed: 08/13/201619996486-9923 [employer]. [address] [place] [address]. All righ ts reserved. This information is not intended as a substitute for professional medical care. Always follow your healthcare professional's instructions. [facility] POST-OP INSTRUCTIONS: Arterio-Venous Fistula 1. Keep the operative arm clean and dry for 24 hours. 2. Remove bandage in 3-4 days. ( May replace if any wound drainage). 3. NO BP, IV or needles in the arm with the fistula 4. It is helpful to exercise the hand with a squeeze ball. 5. Resume normal activities 6. Resume normal diet. 7. Please call Dr. Stephenson's office today or tomorrow for a followup appointment in 1-2 weeks . . documented in this encounter Medications at Time [...] + + + +---------+ + + | [place] MISC | by Does not apply | [...] + +---------+ + + | | Take 2 tablets by | | 0 | | | | acetaminophen-codein | mouth Twice daily | | | | 8 | | e (TYLENOL #3) | as needed for Pain. | | | | | | 300-30 mg per tablet | | | | | | + + + +---------+ + + | Alcohol Swabs 70 % | by Does not apply | | 0 | | | | PADS | route. | | | | 8 | + + + +---------+ + + | amLODIPine | Take 1 tablet by | 50 | 0 | 10/07/19 | | | (NORVASC) 10 MG | mouth Daily. | tablet | | 18 | 8 | | tablet | | | | | | + + + +---------+ + + | | Take 1 tablet by | | 0 | | | | amoxicillin-clavulan | mouth Daily. | | | | 8 | | ate (AUGMENTIN) | | | | | | | 500-125 mg per | | | | | | | tablet | | | | | | + + + +---------+ + + | artificial tears | Place into both | | 0 | | | | (AKWA TEARS) | eyes every hour as | | | | 9 | | ophthalmic ointment | needed for Dry Eyes. | | | | | + + + +---------+ + + | aspirin 325 mg | Take 325 mg by mouth | | 0 | | | | tablet | Daily. | | | | 9 | + + + +---------+ + + | calcium-vitamin D | Take 1 tablet by | | 0 | | | | (CALCIUM 600-D) 600 | mouth 2 times daily. | | | | 9 | | mg-400 units per | | | | | | | tablet | | | | | | + + + +---------+ + + | cholecalciferol | Take 2,000 Units by | | 0 | | | | (VITAMIN D-3) 2000 | mouth Daily. | | | | 9 | | units TABS | | | | | | + + + +---------+ + + | epoetin karthik | Inject 1 mL under | | 0 | 11/10/19 | | | (EPOGEN, PROCRIT) | the skin Three times | | | 18 | 9 | | 10,000 units/mL | a week. | | | | | | injection | | | | | | + + + +---------+ + + | furosemide (LASIX) | Take 1 tablet by | 50 | 0 | 10/07/19 | | | 80 mg tablet | mouth Daily. | tablet | | 18 | 9 | + + + +---------+ + + | gabapentin | Take 200 mg by mouth | | 0 | | | | (NEURONTIN) 100 mg | 3 times daily. Take | | | | 9 | | capsule | Two (2) capsules by | | | | | | | mouth every morning | | | | | | | and take Two (2) | | | | | | | capsules every | | | | | | | evening and take one | | | | | | | (1)capsule at noon | | | | | | | if needed for | | | | | | | Neuropathy - per Med | | | | | | | list received from | | | | | | | Dr. Womack office | | | | | | | 12/30/17. | | | | | + + + +---------+ + + | Glucose Blood | by In Vitro route. | | 0 | | | | (TRUE METRIX BLOOD | | | | | 9 | | GLUCOSE TEST ) | | | | | | + + + +---------+ + + | | Take 1-2 tablets by | 30 | 0 | 01/05/20 | | | HYDROcodone-acetamin | mouth every 4 hours | tablet | | 18 | 8 | | ophen (NORCO) 5-325 | as needed for Pain. | [...] + + + +---------+ + + | loratadine | Take 1 tablet by | 30 | 0 | 10/06/19 | | | (CLARITIN) 10 mg | mouth Daily as | tablet | | 18 | 9 | | tablet | needed for | | | | | | | Allergies. | | | | | + + + +---------+ + + | losartan (COZAAR) | Take 1 tablet by | 50 | 0 | 10/07/19 | | | 25 mg tablet | mouth Daily. | tablet [...] + | POC GLUCOSE | Routin | 01/04/2018 | | Results for this | | | e | 4:02 PM | | procedure are in the | | | | PDT | | results section. | + +--------+ + + + | TRANSPOSITION | | 01/04/2018 | Chronic kidney | | | BASILIC VEIN | | 12:58 PM | disease, stage V | | | | | PDT | ([facility] (N18.5) | | + +--------+ + + + +---+--------+ | | Case | | | Notes | | | Case | | | #2 | +---+--------+ + +--------+ +---+ + | PTT | Routin | 01/04/2018 | | Results for this | | | e | 11:52 AM | | procedure are in the | | | | PDT | | results section. | + +--------+ +---+ + | PROTIME INR | Routin | 01/04/2018 | | Results for this | | | e | 11:52 AM | | procedure are in the | | | | PDT | | results section. | + +--------+ +---+ + | CBC WITH | Routin | 01/04/2018 | | Results for this | | DIFFERENTIAL | e | 11:52 AM | | procedure are in the | | | | PDT | | results section. | + +--------+ +---+ + | BASIC METABOLIC | Routin | 01/04/2018 | | Results for this | | PANEL | e | 11:52 AM | | procedure are in the | | | | PDT | | results section. | + +--------+ +---+ + documented in this encounter Results POC Glucose (01/04/2018 4:02 PM PDT) + +---------+ + + + | Component | Value | Ref Range | Performed | Pathologist | | | | | At | Signature | + +---------+ + + + | Glucose, | 140 (H) | 70 - 109 mg/dL | [...] [address] | [place] | [phone] | | [facility] | | [address] | | | - LABORATORY | | | | + + + + + PTT (01/04/2018 11:52 AM PDT) + +-------+ + + + | Component | Value | Ref Range | Performed | Pathologist | | | | | At | Signature | + +-------+ + + + | aPTT | 30 | 22 - 36 seconds | [facility] | | | | | | [facility] | | | | | | MEDICAL [...] + | [facility] | [address] | [place] | [phone] | | [facility] | | [address] | | | - LABORATORY | | | | + + + + + Protime INR (01/04/2018 11:52 AM PDT) + + + + + + | Component | Value | Ref Range | Performed | Pathologist | | | | | At | Signature | + + + + + + | Prothrombin | 12.7 | 11.3 - 13.9 | [facility] | | | Time | | seconds | [facility] | | | | | | MEDICAL | | | | | | CENTER - | | | | | | LABORATORY | | + + + + + + | INR | 0.96Comment: Usual Oral | 0.90 - 1.10 | [facility] | | | | Anticoagulation Range: | | [facility] | | | | 2.0 - 3.0High [...] [address] | [place] | [phone] | | [facility] | | [address] | | | - LABORATORY | | | | + + + + + CBC with Differential (01/04/2018 11:52 AM PDT) + + + + + + | Component | Value | Ref Range | Performed | Pathologist | | | | | At | Signature | + + + + + + | WBC | 7.6 | 4.0 - 11.0 K/uL | [facility] | | | | | | [facility] | | | | | | [facility]ICAL | | | | | | CENTER - | | | | | | LABORATORY | | + + + + + + | RBC | 4.63 | 3.70 - 5.20 | [facility] | | | | | M/uL | [facility] | | | | | | MEDICAL | | | | | | CENTER - | | | | | | LABORATORY | | + + + + + + | Hemoglobin | 13.6 | 11.5 - 16.0 | [facility] | | | | | g/dL | [facility] | | | | | | MEDICAL | | | | | | CENTER - | | | | | | LABORATORY | | + + + + + + | Hematocrit | 41.4 | 34.0 - 47.0 % | [facility] | | | | | | [facility] | | | | | | MEDICAL | | | | | | CENTER - | | | | | | LABORATORY | | + + + + + + | MCV | 89.5 | 83.0 - 101.0 fL | [facility] | | | | | | [facility] | | | | | | MEDICAL | | | | | | CENTER - | | | | | | LABORATORY | | + + + + + + | MCH | 29.3 | 28.0 - 35.0 pg | [facility] | | | | | | [facility] | | | | | | MEDICAL | | | | | | CENTER - | | | | | | LABORATORY | | + + + + + + | MCHC | 32.8 | 32.0 - 36.0 | [facility] | | | | | g/dL | [facility] | | | | | | MEDICAL | | | | | | CENTER - | | | | | | LABORATORY | | + + + + + + | RDW-CV | 16.3 (H) | <15.0 % | [facility] | | | | | | [facility] | | | | | | MEDICAL | | | | | | CENTER - | | | | | | LABORATORY | | + + + + + + | Platelet | 177 | 140 - 440 K/uL | [facility] | | | Count | | | [facility] | | | [facility] | | MEDICAL | | | | | | CENTER - | | | | | | LABORATORY | | + + + + + + | MPV | 9.1 | fL | [facility] | | | | | | [facility] | | | | | | MEDICAL | | | | | | CENTER - | | | | | | LABORATORY | | + + + + + + | % | 65.2 | 45.0 - 82.0 % | [facility] | | | Neutrophils | | | [facility] | | | | | | MEDICAL | | | | | | CENTER - | | | | | | LABORATORY | | + + + + + + | % | 26.7 | 20.0 - 45.0 % | [facility] | | | Lymphocytes | | | [facility] | | | | | | MEDICAL | | | | | | CENTER - | | | | | | LABORATORY | | + + + + + + | % Monocytes | 5.0 | 4.0 - 12.0 % | [facility] | | | | | | [facility] | | | | | | MEDICAL | | | | | | CENTER - | | | | | | LABORATORY | | + + + + + + | % | 2.3 | 0.0 - 5.0 % | [facility] | | | Eosinophils | | | [facility] | | | | | | MEDICAL | | | | | | CENTER - | | | | | | LABORATORY | | + + + + + + | % Basophils | 0.8 | 0.0 - 1.0 % | [facility] | | | | | | [facility] | | | | | | MEDICAL | | | | | | CENTER - | | | | | | LABORATORY | | + + + + + + | Absolute | 5.00 | 1.80 - 8.50 | [facility] | | | Neutrophils | | K/uL | [facility] | | | | | | MEDICAL | | | | | | CENTER - | | | | | | LABORATORY | | + + + + + + | Absolute | 2.00 | 0.60 - 3.20 | [facility] | | | Lymphocytes | | K/uL | [facility] | | | | | | MEDICAL | | | | | | CENTER - | | | | | | LABORATORY | | + + + + + + | Absolute | 0.40 | 0.00 - 1.00 | [facility] | | | Monocytes | | K/uL | [facility] | | | | | | MEDICAL | | | | | | CENTER - | | | | | | LABORATORY | | + + + + + + | Absolute | 0.20 | 0.00 - 0.40 | [facility] | | | Eosinophils | | K/uL | [facility] | | | | | | MEDICAL | | | | | | CENTER - | | | | | | LABORATORY | | + + + + + + | Absolute | 0.10 | 0.00 - 0.10 | [facility] | | | Basophils | | K/uL | [facility] | | | | | | MEDICAL [...] | + + + + + | [facility] | [address] | [place] | [phone] | | [facility] | | [address] | | | - LABORATORY | | | | + + + + + Basic Metabolic Panel (01/04/2018 11:52 AM PDT) + + + + + + | Component | Value | Ref Range | Performed | Pathologist | | | | | At | Signature | + + + + + + | Na | 135 (L) | 136 - 149 | [facility] | | | | | mmol/L | [facility] | | | | | | MEDICAL | | | | | | CENTER - | | | | | | LABORATORY | | + + + + + + | K | 4.3 | 3.5 - 5.1 | [facility] | | | | | mmol/L | [facility] | | | | | | MEDICAL | | | | | | CENTER - | | | | | | LABORATORY | | + + + + + + | Cl | 98 | 98 - 109 mmol/L | [facility] | | | | | | [facility] | | | | | | MEDICAL | | | | | | CENTER - | | | | | | LABORATORY | | + + + + + + | CO2 | 29 | 24 - 31 mmol/L | [facility] | | | | | | [facility] | | | | | | MEDICAL | | | | | | CENTER - | | | | | | LABORATORY | | + + + + + + | Anion Gap | 8 | 3 - 16 mmol/L | [facility] | | | | | | [facility] | | | | | | MEDICAL | | | | | | CENTER - | | | | | | LABORATORY | | + + + + + + | Glucose | 117 (H) | 70 - 109 mg/dL | [facility] | | | | | | [facility] | | | | | | MEDICAL | | | | | | CENTER - | | | | | | LABORATORY | | + + + + + + | BUN | 12 | 7 - 18 mg/dL | [facility] | | | | | | [facility] | | | | | | MEDICAL | | | | | | CENTER - | | | | | | LABORATORY | | + + + + + + | Creatinine | 2.86 (H) | 0.60 - 1.30 | [facility] | | | | | mg/dL | [facility] | | | | | | MEDICAL | | | | | | CENTER - | | | | | | LABORATORY | | + + + + + + | eGFR if not | 16 (L)Comment: | >=60 | [facility] | | | | GLOMERULAR FILTRATION | mL/min/1.73m2 | [facility] | | | SURINAMESE | RATE,ESTIMATED | | MEDICAL | | | | mL/min/1.46a2Etun than | | CENTER - | | | | 60 Chronic kidney | | LABORATORY | | | | disease,if found over a | | | | | | 3-month period.Less than | | | | | | 15 Kidney failureFor | | | | | | | | | | | | Americans,multiply the | | | | | | calculated GFR by 1.21. | | | | | | | | | | + + + + + + | Calcium | 9.4 | 8.3 - 10.5 | [facility] | | | | | mg/dL | [facility] | | | | | | MEDICAL | | | | | | CENTER - | | | | | | LABORATORY | | + + + + + + | BUN/Creatin | 4.2 | | [facility] | | | ine Ratio | | | [facility] | | [...] ST. | [address] | [place] | [phone] | | [facility] | | [address] | | | - LABORATORY | | | | + + + + + documented in this encounter Visit Diagnoses Not on filedocumented in this encounter Administered Medications + +--------+---------+------+------+------+ | Medication Order | MAR | Action | Dose | Rate | Site | | | Action | Date | | | | + +--------+---------+------+------+------+ + +---+ | albuterol 2.5 mg/3 mL nebulizer | | | solution 2.5 mg 2.5 mg, | | | Nebulization, ONCE PRN, Wheezing, | | | Starting 01/04/18 at 1528, | | | For 1 dose, Notify anesthesia if | | | patient is wheezing and does not | | | have a history of asthma or COPD | | | or current smoking., | | | Recovery/Phase I | | + +---+ | | | + +---+ | albuterol-ipratropium (DUONEB) | | | 2.5-0.5 mg/3 mL nebulizer | | | solution 3 mL 3 mL, | | | Nebulization, ONCE PRN, Wheezing, | | | Starting 01/04/18 at 1149, | | | For 1 dose, Pre-op | | + +---+ | | | + +---+ | albuterol-ipratropium (DUONEB) | | | 2.5-0.5 mg/3 mL nebulizer | | | solution 3 mL 3 mL, | | | Nebulization, ONCE PRN, Wheezing, | | | Shortness of Breath, Starting | | | 01/04/18 at 1528, For 1 dose, | | | Recovery/Phase I | | + +---+ | | | + +---+ + +-------+ +---------+---+ + | bacitracin 50,000 Units in | Given | 01/05/20 | 500 mLs | | Surgical | | sodium chloride for irrigation | | 18 1:38 | | | Site | | 0.9% 1,000 mL irrigation PRN, | | PM PDT | | | | | Starting Wed01/04/18 at 1338, | | | | | | | Intra-op | | | | | | + +-------+ +---------+---+ + +---+---+ | | | +---+---+ + +-------+ +--------+---+ + | bupivacaine 0.25%-EPINEPHrine | Given | 01/05/20 | 10 mLs | | Surgical | | 1:200,000 injection PRN, | | 18 3:34 | | | Site | | Starting Tu01/04/18 at 1534, | | PM PDT | | | | | Intra-op | | | | | | + +-------+ +--------+---+ + + +---+ | | | + +---+ | dextrose 50% injection 12.5-25 | | | g 12.5-25 g, Intravenous, EVERY | | | 15 MIN PRN, Low Blood Sugar, Give | | | 12.5g (25 mL) IV if blood | | | glucose 50-69 mg/dL. Give 25g | | | (50 mL) IV if blood glucose < 50, | | | Starting 01/04/18 at 1149, | | | Repeat in 15 min if blood glucose | | | remains < 70 mg/dL. Repeat | | | blood glucose in 30 min once | | | blood glucose > 70., Pre-op | | + +---+ | | | + +---+ | ePHEDrine 50 mg/mL injection 5 | | | mg 5 mg, Intravenous, EVERY 5 | | | MIN PRN, if SBP <90., Starting | | | 01/04/18 at 1528, Hold if HR > | | | 100. Maximum total dose 20mg., | | | Recovery/Phase I | | + +---+ | | | + +---+ | fentaNYL (PF) injection 25-50 | | | mcg 25-50 mcg, Intravenous, | | | EVERY 5 MIN PRN, Pain, Starting | | | Wed01/04/18 at 1528, Maximum | | | total dose 200 mcg. PACU IV | | | Narcotic Priority: Only use | | | fentanyl for immediate post-op | | | pain (one dose) or breakthrough | | | pain when any other IV narcotics | | | ordered have been ineffective (if | | | ordered). If both morphine and | | | hydromorphone are ordered, use | | | morphine first, and use | | | hydromorphone if morphine | | | ineffective., Recovery/Phase I | | + +---+ | | | + +---+ | glycopyrrolate (ROBINUL) | | | injection 0.2 mg 0.2 mg, | | | Intravenous, PRN, Bradycardia, | | | For HR <50, Starting Wed01/04/18 | | | at 1528, For 2 doses, May repeat | | | one time after 1min, | | | Recovery/Phase I | | + +---+ | | | + +---+ + +-------+ +---------+---+ + | heparin 2500 UNITS in 250 mL | Given | 04/24/20 | 250 mLs | | Surgical | | 0.9% Normal Saline PRN, Starting | | 18 1:38 | | | Site | | e 01/04/18 at 1338, Intra-op | | PM PDT | | | | + +-------+ +---------+---+ + + +---+ | | | + +---+ | hydrALAZINE (APRESOLINE) | | | injection 5 mg 5 mg, | | | Intravenous, EVERY 20 MINUTES | | | PRN, For SBP > 180, DBP > 100, | | | Starting e 01/04/18 at 1528, | | | Hold if HR > 100. Maximum total | | | dose 40 mg. Use labetalol first | | | if available., Recovery/Phase I | | + +---+ | | | + +---+ | HYDROmorphone (DILAUDID) | | | injection 0.2-0.5 mg 0.2-0.5 mg, | | | Intravenous, EVERY 5 MIN PRN, | | | Pain, Starting 01/04/18 at | | | 1528, Maximum total dose 2 mg. | | | PACU IV Narcotic Priority: Only | | | use fentanyl for immediate | | | post-op pain (one dose) or | | | breakthrough pain when any other | | | IV narcotics ordered have been | | | ineffective (if ordered). If | | | both morphine and hydromorphone | | | are ordered, use morphine first, | | | and use hydromorphone if morphine | | | ineffective., Recovery/Phase I | | + +---+ | | | + +---+ | labetalol (TRANDATE) 5 mg/mL | | | injection 5 mg 5 mg, | | | Intravenous, EVERY 5 MIN PRN, For | | | SBP > 180, DBP > 100, Starting | | | 01/04/18 at 1528, Hold if HR < | | | 60. Maximum total dose 300mg. | | | Notify anesthesia if patient | | | requires more than 50mg., | | | Recovery/Phase I | | + +---+ | | | + +---+ | ondansetron (ZOFRAN ODT) | | | disintegrating tablet 4 mg 4 mg, | | | Oral, EVERY 6 HOURS PRN, Nausea, | | | Vomiting, Starting 01/04/18 | | | at 1611, First line agent, | | | Post-op/Phase II | | + +---+ | | | + +---+ | ondansetron (ZOFRAN) injection | | | 4 mg 4 mg, Intravenous, ONCE | | | PRN, Nausea, Starting 01/04/18 | | | at 1149, For 1 dose, Pre-op | | + +---+ | | | + +---+ + +-------+ +------+---+---+ | ondansetron (ZOFRAN) injection | Given | 01/05/20 | 4 mg | | | | 4 mg 4 mg, Intravenous, ONCE | | 18 4:14 | | | | | PRN, Nausea, Starting 01/04/18 | | PM PDT | | | | | at 1528, For 1 dose, | | | | | | | Recovery/Phase I | | | | | | + +-------+ +------+---+---+ + +---+ | | | + +---+ | ondansetron (ZOFRAN) injection | | | 4 mg 4 mg, Intravenous, EVERY 6 | | | HOURS PRN, Nausea, Vomiting, | | | Starting 01/04/18 at 1611, | | | First line agent. Use PO option | | | unless NPO status or unable to | | | tolerate., Post-op/Phase II | | + +---+ | | | + +---+ | scopolamine (TRANSDERM-SCOP) 1 | | | mg/3 days 1 patch 1 patch, | | | Transdermal, PRN, adult patients | | | with history of PONV, Starting | | | 01/04/18 at 1149, For 1 dose, | | | PRN for adult patients <65 yo | | | with history of PONV. Hold for | | | patients with glaucoma, dementia, | | | altered mental status, or | | | history of allergy to | | | Scopolamine. Apply to mastoid | | | process behind ear., Pre-op | | + +---+ | | | + +---+ + +---------+ +---+---+---+ | sodium chloride 0.9% (NS) | New Bag | 01/05/20 | | | | | infusion at 10-100 mL/hr, | | 18 1:48 | | | | | Intravenous, CONTINUOUS, Starting | | PM PDT | | | | | 01/04/18 at 1215, TKO. Use | | | | | | | this instead of LR if patient is | | | | | | | on dialysis., Pre-op | | | | | | + +---------+ +---+---+---+ +---------+ +---+---+---+ | New Bag | 01/05/20 | | | | | | 18 12:36 | | | | | | PM PDT | | | | +---------+ +---+---+---+ +---+---+ | | | +---+---+ documented in this encounter
--- OUTSIDE RECORDS SUMMARY | ~2019-08-24 | XMS | Encounter Summary ---
Demographics + + + | Address | [address] | | | [place] [address] | + + + | Home Phone [...] + + | Author | [facility] | | | and [place] | + + + | Organization | [facility] | | | and [place] | + + + | Address | Unknown | + + + | Phone | Unavailable | + + + Support + + + + + | Name | Relationship | Address | Phone | + + + + + | India Tilley | ECON | [phone] | | | | | [place], [place] | | | | | [address] | | + + + + + | Yina La | ECON | Unknown | | + + + + + | Yina Peterson | ECON | Unknown | | + + + + + | Leatha Casillas | ECON | Unknown | | + + + + + Care Team Providers + +------+ + | Care English Composition Instructor Name | Role | Phone | + [...] | Surgery | kidney | DO [address] | [address] | | | | | disease, | [place], Jorden | [address] | | | | | stage V | [address] | [place], | | | | | ([facility]) | [facility], [place] | [place] [address] | | | | | | [address] | Phone: | | | | | | Phone: | [phone] | | | | | | [phone] | Fax: | | | | | | Fax: | [phone] | | | | | | [phone] | | +--------+ + + + + + Encounter Details +--------+---------+ + + + | Date | Type | Department | Care Team | Description | +--------+---------+ + + + | 01/10/ | Office | [facility] | Santos Stephenson | Chronic kidney | | 2018 | Visit | SURGERY [address] | MD Glenn FACS [address] | disease, stage V | | | | [place], [place] | [address] | (HCC) (Primary Dx); | | | | [id number] | [place] [address] | Post-operative state | | | | [phone] | [phone] | | | | | | | [...] Placement; Surgeon: Nora Leo MD; Location : [facility] MAIN OR VEIN SURGERY Right 01/04/2018 Procedure: Right Transposed Basilic Vein to Proximal Radial Artery; Surgeon: Santos Stephenson MD, FACS; Location: [facility] MAIN OR Allergies Allergen Reactions Lisinopril Pt [...] + | Chronic kidney disease, stage V ([facility]) - Primary Chronic kidney disease, Stage V | + + | Post-operative state Other postprocedural status | + + documented in this encounter
--- OUTSIDE RECORDS SUMMARY | ~2019-08-24 | XMS | Encounter Summary ---
Demographics + + + | Address | [address] | | | [place] [address] | + + + | Home Phone [...] | Author | [facility] | | | and [place] | + + + | Organization | [facility] | | | and [place] | + + + | Address | Unknown | + + + | Phone | Unavailable | + + + Support + + + + + | Name | Relationship | Address | Phone | + + + + + | India Tilley | ECON | [address] | | | | | [place], [place] | | | | | [address] | | + + + + + | Yina La | ECON | Unknown | | + + + + + | Yina Peterson | ECON | Unknown | | + + + + + | Leatha Casillas | ECON | Unknown | | + + + + + Care Team Providers + +------+ + | Care Steel Barrel Reamer Name | Role | Phone | + +------+ + PCP | Unavailable | + +------+ + Encounter Details +--------+ + + + + | Date | Type | Department | Care Team | Description | +--------+ + + + + | 01/10/ | Off-Site | [facility] | Gopi Muñoz | End stage renal | | 2018 | Visit | NEPHROLOGY [address] | M, DO [address] | disease (HCC) | | | | [address] | [place] | (Primary Dx) | | | | [place], [place] | [place], [place] | | | | | [address] | [id number] | | | | | [phone] | | | +--------+ + + + [...] + + + | Blood Pressure | 167/89 | 01/10/2018 9:10 PM | | | | | PDT | | + + + + + | Pulse | - | - | | + + + + + | Temperature | 36.2 C (97.2 F) | 01/10/2018 9:10 PM | | | | | PDT [...] + documented in this encounter Progress Notes Gopi Muñoz DO - 01/10/2018 12:00 PM PDT Subjective: Patient ID: Estefani Tilley is a 72 y.o. female. Follow up- for this 72 YO Female with ESRD 2 to HTN and diabetic glomerul osclerosis at the [facility]. She also has depression, long standing HTN, Type 2 DM, requiring insulin, and CKD/MBD. She does not frequently check glucoscans. She is asking about CAPD, earlier, but she was lo st to follow up, is chronically depressed, and has virtually no home support. I am not convi nced that she would do well on it. She has had a successful construction of an AVF in her Right arm on 01/04/2018 . Outpatient Prescriptions Marked as Taking for the 01/10/18 encounter (Off-Site Visit) with Jessie Muñoz, DO Medication Sig Dispense Refill [DISCONTINUED] acetaminophen-codeine (TYLENOL #3) 300-30 mg per tablet Take 2 tablets b y mouth Twice daily as needed for Pain. [DISCONTINUED] Alcohol Swabs 70 % PADS by Does not apply route. amLODIPine (NORVASC) 10 MG tablet Take 1 tablet by mouth Daily. 50 tablet 0 [DISCONTINUED] amoxicillin-clavulanate (AUGMENTIN) 500-125 mg per tablet Take [...] GLUCOSE TEST ) by In Vitro route. [DISCONTINUED] HYDROcodone-acetaminophen (NORCO) 5-325 mg per tablet Take 1-2 tablets b y mouth every 4 hours as needed for [...] affected area as directed during dressing changes. Review of Systems Objective: BP 167/89 | Temp 36.2 C (97.2 F) EDW 76 kg Physical Exam Heart: Regular rate and rhythm with no S3, S4, murmur or rub. Lungs: CTA bilaterally. No rales or wheezes. Abdomen: soft, obese, nontender, NABS. Extremities: 1+ edema, clubbing, cyanosis. right arm AVF has a (+) bruit at the AVF. LAB: BUN 26, Cr 3.43, K+ 5.2, HCO3 26, Ca++ 8.9, PO4 5.1, PTH 219, Alb 3.2, Hbaic: not listed, Hb 12.5, spKT/V = 1.90. Assessment: 1. ESRD-- she appears well dialyzed clinically by the most recent KT/V. 2. Hypertension-- suboptimal control. She admits to not taking all of her meds as prescrib ed. 3. CKD/MBD-- the PTH is stable on her current dose of Hectorol. 4. Nutrition-- serum albumin is improving. She appears to have some background depression as well. 5. Transplantation--currently , she is too emotionally labile and lack family support. 6. Type 2 DM-- she openly admits that she is not checking glucoscans and not consistently taking her Lantus, as prescribed. 7. Depression-- she has been prescribed a SSRI. I also offered her a Behavioral Health cou nselor , but she states that she will consider it. Plan: 1. Will continue to offer her support, and time. 2. I did discuss that after 30 days on oupt HD , that she likely will have more energy. 3. I encouraged her to seek some personal counseling, as she appears very dysphoric from a family standpoint, irrespective of her CKD. 4. Will recheck her in 2 weeks. CC: Kierra Hilliard, [place]. Santos Stephenson MD, FACS documented in thi s encounter Plan of Treatment Not on filedocumented as of this encounter Visit Diagnoses + + | Diagnosis | + + | End stage renal disease (HCC) - Primary End stage renal disease | + + documented in this encounter"
--- OUTSIDE RECORDS SUMMARY | ~2019-08-24 | XMS | Encounter Summary ---
Demographics + + + | Address | [address] | | | [place] [address] | + + + | Home Phone | | + + + | Preferred Language | Unknown | + + + | Marital Status | Single | + + + | Christian Affiliation | Unknown | + + + | Race | Unknown | + + + | Ethnic Group | Unknown | + + + Author + + + | Author | [facility] | | | and [place] | + + + | Organization | [facility] | | | and [place] | + + + | Address | Unknown | + + + | Phone | Unavailable | + + + Support + + + + + | Name | Relationship | Address | Phone | + + + + + | India Tilley | ECON | [id number] | | | | | [place], [place] | | | | | [address] | | + + + + + | Yina La | ECON | Unknown | | + + + + + | Yina Peterson | ECON | Unknown | | + + + + + | Leatha Casillas | ECON | Unknown | | + + + + + Care Team Providers + +------+ + | Care Garment Folder Name | Role | Phone | + +------+ + PCP | Unavailable | + +------+ + Reason for Visit + + + | Reason | Comments | + + + | Medical Problem | | | (Minor) | | + + + Auth/Cert +--------+--------+ [...] | | | | | | | ([facility]) | | | | | | | Complication | | | | | | | s, dialysis, | | | | | | | catheter, | | | | | | | mechanical, | | | | | | | initial | | | | | | | encounter | | | | | | | ([facility]) | | | | | | | Procedures | | | | | | | INSERTION | | | | | | | SHUNT | | | | | | | HEMODIALYSIS | | | | | | | W/ | | | | | | | PERMACATH | | | +--------+--------+ + + + + Encounter Details +--------+---------+ + + + | Date | Type | Department | Care Team | Description | +--------+---------+ + + + | 02/04/ | Surgery | [facility] | Heather Navarro | INSERTION SHUNT | | 2018 - | | [facility] | [address] | HEMODIALYSIS W/ | | | | [address] | [facility] | PERMACATH | | 02/05/ | | [place], [place] | [place] [address] | | | 2017 | | [address] | [phone] | | | | | [phone] | | | +--------+---------+ + + + [...] + + + | Blood Pressure | 211/80 | 02/05/2018 1:22 AM | | | | | PDT | | + + + + + | Pulse | 73 | 02/05/2018 1:22 AM | | | | | PDT | | + + + + + | Temperature | 36.1 C (97 F) | 02/05/2018 1:22 AM | | | | | PDT | | + + + + + | Respiratory Rate | 16 | 02/05/2018 1:22 AM | | | | | PDT | | + + + + + | Oxygen Saturation | 98% | 02/05/2018 1:22 AM | | | | | PDT | | + + + + + | Inhaled Oxygen | - | - | | | Concentration | | | | + + + + + | Weight | 72.6 kg (160 lb) | 02/04/2018 6:16 PM | | | | | PDT | | + + + + + | Height | 172.7 cm (5' 8") | 02/04/2018 6:16 PM | | | | | PDT | | + + + + + | Body Mass Index | 24.33 | 02/04/2018 6:16 PM | | | | | PDT [...] + documented as of this encounter Discharge Instructions Instructions Heather Navarro MD - 02/04/2018 POSTOPERATIVE DISCHARGE INSTRUCTIONS Office Phone Number to Contact Dr Navarro: [phone] Navarro's Office to schedule a follow up visit as needed - you will follow up with Dr Stephenson and at the dialysis center. Our office is located in the [facility] next door to Urgent Care. Other appointments or tests needed: dialysis Wound Care You have a skin glue dressing which will flake off in the next two weeks. Do not Remove the dressing on the wound. You may shower in 24 hours, but do not soak in water until after you are seen in the off ice. You may put an ice pack or a heating pad on your incision for 20 minutes, up to 3 times a day, if it helps with your pain. You may put an ointment on your incision (Vitamin E, cocoa butter) when the steri-strips come off. An ointment may make the scar smaller over time. Keep your incision out of direct sunlight for one year to keep it from turning dark. Over the Counter Medications Take Colace (docusate sodium) to keep stool soft. It may be needed when taking prescrip tion pain mediations. Tylenol (acetominophen) may be taken instead of your prescription pain medication for mi ld pain. Because your prescription pain medication may contain acetominophen, you should no t take it in combination with your prescription pain medication. Motrin, Advil (ibuprofen), or Aleve may be taken in addition to your prescription pain m edications. Things to Remember When Taking Prescription Pain Medications Do not drink alcohol Do not drive (riding is OK) The medicine may cause constipation. Use only if needed for severe pain. You may use a n over the counter stool softener if needed. People usually need 2 pain pills every 4 hours in the days after surgery, then are able to cut back to 1 pill, or switch to over the counter medicine. By 2 weeks after surgery, yo u should only need your prescription pain pills at night to help you sleep. You may not nee d it all anymore. Be sure to plan ahead if you need a refill of your pain medication. You may call the o ffice Wednesday - 9:00-5:00 and Wednesday 9:00-2:00PM. Call the General Surgery Office [phone] for the following: Persistent vomiting Diarrhea lasting more than two days. Constipation not helped by over the counter medications for more than 48 hours Temperature more than 101.5F (38.5C) or shaking chills. Increasing redness Or drainage from your wound Difficulty breathing Hard to urinate (pee) Pain that is worse, even with your pain medication It is normal after surgery to have: More pain or tiredness after increased activity. A hard ridge or lump right under your incision. This is part of normal healing. Diet Drink 6 to 8 glasses of water a day, unless directed otherwise. If you are constipated, take a fiber laxative such as Metamucil. Physical Activity Lifting restrictions No lifting greater than 15 lbs (2 gallons of milk) for 3 weeks Resume light activities around your home as soon as possible. Limit sports and strenuous activities [id number]. Shower as usual. Gently wash around your incisions with soap and water. Don t bathe or soak in a tub until your incisions are well healed. Wear loose-fitting clothes. This will help you be more comfortable and cause less irrita tion around your incisions. Walking is OK. Going up and down stairs is OK. Don t drive until you are no longer taking prescription pain medication. We thank you for trusting us with your care. documented in this encounter Medications at Time [...] tablet by | 50 | 0 | 01/25/20 | | | (NORVASC) 10 MG | [...] | | Take 1-2 tablets by | 5 | 0 | 02/05/20 | | | HYDROcodone-acetamin | mouth every 6 hours | tablet | | 18 | 9 | | ophen (NORCO) 5-325 | as needed. | | | | | | mg [...] documented as of this encounter Progress Notes Jasson Kirkpatrick RN - 02/05/2018 1:47 AM PDTPatient arrived to the floor at 0030 and was dis charged at 0130. Patient at arriving to the floor started putting her shoes on and insisted on going outside to look for her son. Patient was informed of the criteria she has to meet b efore discharge. Patient was able to eat without nausea; she voided in the toilet; she denie d pain to surgical site and was able to ambulate in the room independently. Surgical site CD I, no bleeding or hematoma noted. Patient BP was elevated but she reported that her bp runs high and declined intervention. Discharge instruction given to patient and son. Left PIV acc ess discontinued. Patient was wheeled outside in a wheelchair by staff. Electronically sign ed by Jasson Kirkpatrick RN at 02/05/2018 1:56 AM PDTdocumented in this encounter Plan of Treatment Not on filedocumented as of this encounter Procedures + +--------+ + + + | Procedure Name | Priori | Date/Time | Associated Diagnosis | Comments | | | ty | | | | + +--------+ + + + | XR CHEST AP PORTABLE | STAT | 02/04/2018 | | Results for this | | | | 11:32 PM | | procedure are in the | | | | PDT | | results section. | + +--------+ + + + | POC GLUCOSE | Routin | 02/04/2018 | | Results for this | | | e | 11:12 PM | | procedure are in the | | | | PDT | | results section. | + +--------+ + + + | FL CENTRAL VENOUS | Routin | 02/04/2018 | | Results for this | | ACCESS DEVICE | e | 10:52 PM | | procedure are in the | | PLACEMENT | | PDT | | results section. | + +--------+ + + + | INSERTION SHUNT | | 02/04/2018 | Needs dialysis | | | HEMODIALYSIS W/ | | 10:04 PM | catheter | | | PERMACATH | | PDT | | | + +--------+ + + + | XR CHEST AP PORTABLE | STAT | 02/04/2018 | | Results for this | | | | 7:45 PM | | procedure are in the | | | | PDT | | results section. | + +--------+ + + + | PROTIME INR | STAT | 02/04/2018 | | Results for this | | | | 7:21 PM | | procedure are in the | | | | PDT | | results section. | + +--------+ + + + | CBC WITH | STAT | 02/04/2018 | | Results for this | | DIFFERENTIAL | | 7:21 PM | | procedure are in the | | | | PDT | | results section. | + +--------+ + + + | BASIC METABOLIC | STAT | 02/04/2018 | | Results for this | | PANEL | | 7:21 PM | | procedure are in the | | | | PDT | | results section. | + +--------+ + + + documented in this encounter Results XR Chest AP Portable (02/04/2018 11:32 PM PDT) + + | Specimen | + + | | + + + + + | Narrative | Performed At | + + + | EXAM: XR CHEST AP PORTABLE dated 02/04/2018 11:26 PM HISTORY: new | [facility] | | dialysis catheter Comparison: February 04, 2018. TECHNIQUE: A | | | single portable view of the chest. FINDINGS: Interval | | | replacement of a right sided dialysis catheter. The catheter tip | | | terminates in the distal superior vena cava. No acute postprocedural | | | abnormality in the chest. IMPRESSION - The right sided | | | tunneled vascular catheter. No radiographic evidence for a | | | postprocedural consultation. Dictated and Signed by: Rolan Sargent | | | MD Reyna Electronically signed: 02/05/2018 9:59 AM | | + + + + + | Procedure Note | + + | Julian, Rad Results In - 02/05/2018 10:02 AM PDT EXAM: XR CHEST AP PORTABLE dated | | 02/04/2018 11:26 PMHISTORY: new dialysis catheterComparison: February 04, 2018.TECHNIQUE: A | | single portable view of the chest.FINDINGS:Interval replacement of a right sided | | dialysis catheter. The catheter tipterminates in the distal superior vena cava. No | | acute postproceduralabnormality in the chest. IMPRESSION -The right sided tunneled | | vascular catheter.No radiographic evidence for a postprocedural consultation.Dictated | | and Signed by: Rolan Orellana MD Electronically signed: 02/05/2018 9:59 AM | | | |FINDINGS: | | | |Interval replacement of a right sided dialysis catheter. The catheter tip | |terminates in the distal superior vena cava. No acute postprocedural | |abnormality in the chest. | | | |IMPRESSION - | | | |The right sided tunneled vascular catheter. | | | |No radiographic evidence for a postprocedural consultation. | | | |Dictated and Signed by: Rolan Orellana MD | | Electronically signed: 02/05/2018 9:59 AM | + + + +---------+ + + | Performing | Address | City/State/Zipcode | Phone Number | | Organization | | | | + +---------+ + + | [facility] | | | | + +---------+ + + POC Glucose (02/04/2018 11:12 PM PDT) + +---------+ + + + [...] ST. | [address] | [place] | [phone] | | [facility] | | [address] | | | - LABORATORY | | | | + + + + + FL CVA Device Placement (02/04/2018 10:52 PM PDT) + + | Specimen | + + | | + + + + + | Narrative | Performed At | + + + | This exam has been auto-finalized and the interpretation may exist | [facility] | | elsewhere in the chart. | | + + + + +---------+ + + | Performing | Address | City/State/Zipcode | Phone Number | | Organization | | | | + +---------+ + + | [facility] | | | | + +---------+ + + XR Chest AP Portable (02/04/2018 7:45 PM PDT) + + | Specimen | + + | | + + + + + | Narrative | Performed At | + + + | EXAM: XR CHEST AP PORTABLE dated 02/04/2018 7:45 PM HISTORY: | [facility] | | Dialysis catheter removed Comparison: November 08, 2017. | | | TECHNIQUE: A single portable view of the chest. FINDINGS: | | | Interval removal of the right chest tunneled vascular catheter. | | | Chronic scarring in the right midlung. No pneumothorax. No | | | large effusion. Stable cardiac and mediastinal contours. | | | IMPRESSION - Interval removal of the right tunneled vascular | | | catheter. No radiographic evidence for acute disease in the chest. | | | Dictated and Signed by: Rolan Orellana MD Electronically | | | signed: 02/04/2018 7:53 PM | | + + + + + | Procedure Note | + + | Anjum Jordan Results In - 02/04/2018 7:56 PM PDT EXAM: XR CHEST AP PORTABLE dated | | 02/04/2018 7:45 PMHISTORY: Dialysis catheter removedComparison: November 08, | | 2017.TECHNIQUE: A single portable view of the chest.FINDINGS:Interval removal of the | | right chest tunneled vascular catheter. Chronicscarring in the right midlung. No | | pneumothorax. No large effusion. Stablecardiac and mediastinal contours. IMPRESSION | | -Interval removal of the right tunneled vascular catheter.No radiographic evidence for | | acute disease in the chest.Dictated and Signed by: Rolan Orellana MD Electronically | | signed: 02/04/2018 7:53 PM | |FINDINGS: | | | |Interval removal of the right chest tunneled vascular catheter. Chronic | |scarring in the right midlung. No pneumothorax. No large effusion. Stable | |cardiac and mediastinal contours. | | | |IMPRESSION - | | | |Interval removal of the right tunneled vascular catheter. | | | |No radiographic evidence for acute disease in the chest. | | | |Dictated and Signed by: Rolan Orellana MD | | Electronically signed: 02/04/2018 7:53 PM | + + + +---------+ + + | Performing | Address | City/State/Zipcode | Phone Number | | Organization | | | | + +---------+ + + | [facility] | | | | + +---------+ + + Protime INR (02/04/2018 7:21 PM PDT) + + + + + + | Component | Value | Ref Range | Performed | Pathologist | | | | | At | Signature | + + + + + + | Prothrombin | 13.2 | 11.3 - 13.9 | [facility] | | | Time | | seconds | [facility] | | | | | | MEDICAL | | | | | | CENTER - | | | | | | LABORATORY | | + + + + + + | INR | 1.01Comment: Usual Oral | 0.90 - 1.10 | [...] + | [facility] | [address] | [place] | [phone] | | [facility] | | [address] | | | - LABORATORY | | | | + + + + + Basic Metabolic Panel (02/04/2018 7:21 PM PDT) + + + + + + | Component | Value | Ref Range | Performed | Pathologist | | | | | At | Signature | + + + + + + | Na | 132 (L) | 136 - 149 | [facility] | | | | | mmol/L | [facility] | | | | | | MEDICAL | | | | | | CENTER - | | | | | | LABORATORY | | + + + + + + | K | 4.0 | 3.5 - 5.1 | [facility] | | | | | mmol/L | [facility] | | | | | | MEDICAL | | | | | | CENTER - | | | | | | LABORATORY | | + + + + + + | Cl | 96 (L) | 98 - 109 mmol/L | [facility] | | | | | | [facility] | | | | | | MEDICAL [...] + + + + | Glucose | 170 (H) | 70 - 109 mg/dL | [facility] | | | | | | [facility] | | | | | | MEDICAL | | | | | | CENTER - | | | | | | LABORATORY | | + + + + + + | BUN | 23 (H) | 7 - 18 mg/dL | [facility] | | | | | | [facility] | | | | | | MEDICAL | | | | | | CENTER - | | | | | | LABORATORY | | + + + + + + | Creatinine | 3.57 (H) | 0.60 - 1.30 | [facility] | | | | | mg/dL | [facility] | | | | | | MEDICAL | | | | | | CENTER - | | | | | | LABORATORY | | + + + + + + | eGFR if not | 13 (L)Comment: | >=60 | [facility] | | | | GLOMERULAR FILTRATION | mL/min/1.73m2 | [facility] | | | [place] | RATE,ESTIMATED | | MEDICAL | | | | mL/min/1.61a9Ypec than | | CENTER - | | [...] + + + | Calcium | 8.6 | 8.3 - 10.5 | [facility] | | | | | mg/dL | [facility] | | | | | | MEDICAL | | | | | | CENTER - | | | | | | LABORATORY | | + + + + + + | BUN/Creatin | 6.4 | | [facility] | | | ine [...] | [facility] | [address] | [place] | [phone] | | [facility] | | [address] | | | - LABORATORY | | | | + + + + + CBC with Differential (02/04/2018 7:21 PM PDT) + + + + + + | Component | Value | Ref Range | Performed | Pathologist | | | | | At | Signature | + + + + + + | WBC | 6.1 | 4.0 - 11.0 K/uL | [facility] | | | | | | [facility] | | | | | | MEDICAL | | | | | | CENTER - | | | | | | LABORATORY | | + + + + + + | RBC | 3.99 | 3.70 - 5.20 | [facility] | | | | | M/uL | [facility] | | | | | | MEDICAL | | | | | | CENTER - | | | | | | LABORATORY | | + + + + + + | Hemoglobin | 12.1 | 11.5 - 16.0 | [facility] | [...] + + + + | MCV | 89.6 | 83.0 - 101.0 fL | [facility] | | | | | | [facility] | | | | | | MEDICAL | | | | | | CENTER - | | | | | | LABORATORY | | + + + + + + | MCH | 30.4 | 28.0 - 35.0 pg | [facility] | | | | | | [facility] | | | | | | MEDICAL | | | | | | CENTER - | | | | | | LABORATORY | | + + + + + + | MCHC | 34.0 | 32.0 - 36.0 | [facility] | | | | | g/dL | [facility] | | | | | | MEDICAL | | | | | | CENTER - | | | | | | LABORATORY | | + + + + + + | RDW-CV | 17.3 (H) | <15.0 % | [facility] | | | | | | [facility] | | | | | | MEDICAL | | | | | | CENTER - | | | | | | LABORATORY | | + + + + + + | Platelet | 205 | 140 - 440 K/uL | [facility] | | | Count | | | [facility] | | | | | | MEDICAL | | | | | | CENTER - | | | | | | LABORATORY | | + + + + + + | MPV | 7.7 | fL | [facility] | | | | | | [facility] | | | | | | MEDICAL | | | | | | CENTER - | | | | | | LABORATORY | | + + + + + + | % | 55.3 | 45.0 - 82.0 % | [facility] | | | Neutrophils | | | [facility] | | | | | | MEDICAL | | | | | | CENTER - | | | | | | LABORATORY | | + + + + + + | % | 35.1 | 20.0 - 45.0 % | [facility] | | | Lymphocytes | | | [facility] | | | | | | MEDICAL | | | | | | CENTER - | | | | | | LABORATORY | | + + + + + + | % Monocytes | 5.5 | 4.0 - 12.0 % | [facility] | | | | | | [facility] | | | | | | MEDICAL | | | | | | CENTER - | | | | | | LABORATORY | | + + + + + + | % | 3.3 | 0.0 - 5.0 % | [facility] [...] + + + + | Absolute | 3.40 | 1.80 - 8.50 | [facility] | | | Neutrophils | | K/uL | [facility] | | | | | | MEDICAL | | | | | | CENTER - | | | | | | LABORATORY | | + + + + + + | Absolute | 2.20 | 0.60 - 3.20 | [facility] | [...] | | Monocytes | | K/uL | [facility] | [...] | | Basophils | | K/uL | [facility] | [...] [address] | [place] | [phone] | | [facility] | | [address] | | | - LABORATORY | | | | + + + + + documented in this encounter Visit Diagnoses Not on filedocumented in this encounter Administered Medications + +--------+ +--------+------+ + | Medication Order | MAR | Action | Dose | Rate | Site | | | Action | Date | | | | + +--------+ +--------+------+ + | bupivacaine 0.25%-EPINEPHrine | Given | 02/05/20 | 20 mLs | | Surgical | | 1:200,000 (PF) injection PRN, | | 18 10:52 | | | Site | | Starting 02/04/18 at 2252, | | PM PDT | | | | | Intra-op | | | | | | + +--------+ +--------+------+ + + +---+ | | | + +---+ | diphenhydrAMINE (BENADRYL) 12.5 | | | mg/5 mL liquid 25 mg 25 mg, | | | Oral, EVERY 4 HOURS PRN, Itching, | | | Starting 02/05/18 at 0036, | | | Oral route is preferred., | | | Post-op/Phase II | | + +---+ | | | + +---+ | diphenhydrAMINE (BENADRYL) | | | injection 12.5 mg 12.5 mg, | | | Intravenous, EVERY 4 HOURS PRN, | | | Itching, Starting 02/05/18 at | | | 0036, Oral route is preferred., | | | Post-op/Phase II | | + +---+ | | | + +---+ | diphenhydrAMINE (BENADRYL) | | | tablet 25 mg 25 mg, Oral, EVERY | | | 4 HOURS PRN, Itching, Starting | | | 02/05/18 at 0036, Oral route | | | is preferred., Post-op/Phase II | | + +---+ | | | + +---+ + +-------+ +--------+---+---+ | heparin 1,000 units/mL | Given | 02/05/20 | 3,000 | | | | injection PRN, Starting Fri | | 18 10:52 | Units | | | | 02/04/18 at 2252, Intra-op | | PM PDT | | | | + +-------+ +--------+---+---+ +---+---+ | | | +---+---+ + +-------+ +---------+---+---+ | HYDROmorphone (DILAUDID) | Given | 02/05/20 | 0.25 mg | | | | injection 0.2-0.5 mg 0.2-0.5 mg, | | 18 11:51 | | | | | Intravenous, EVERY 10 MIN PRN, | | PM PDT | | | | | Pain, Starting 02/04/18 at | | | | | | | 2302, Maximum total dose 4 mg. | | | | | | [...] +-------+ +---------+---+---+ +-------+ +---------+---+---+ | Given | 02/05/20 | 0.25 mg | | | | | 18 11:42 | | | | | | PM PDT | | | | +-------+ +---------+---+---+ | Given | 02/05/20 | 0.25 mg | | | | | 18 11:31 | | | | | | PM PDT | | | | +-------+ +---------+---+---+ + +---+ | | | + +---+ | lactated ringers (LR) infusion | | | at 10-100 mL/hr, Intravenous, | | | CONTINUOUS, Starting 02/04/18 | | | at 2135, TKO., Pre-op | | + +---+ | | | + +---+ | ondansetron (ZOFRAN ODT) | | | disintegrating tablet 4 mg 4 mg, | | | Oral, EVERY 6 HOURS PRN, Nausea, | | | Vomiting, Starting 02/05/18 | | | at 0102, First line agent. 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 If patient cannot take PO, | | | call provider for alternate IV | | | meds for Nausea and Vomiting., | | + +---+ | | | [...] | | +---+---+ + +-------+ +-------+---+---+ | sodium chloride 0.9% flush | Given | 02/05/20 | 4 mLs | | | | PRN, Starting 02/04/18 at | | 18 10:53 | | | | | 2253, Intra-op | | PM PDT | | | | + +-------+ +-------+---+---+ +---+---+ | | | +---+---+ documented in this encounter
--- OUTSIDE RECORDS SUMMARY | ~2019-08-24 | XMS | Encounter Summary ---
Demographics + + + | Address | [address] | | | [place] [address] | + + + | Home Phone | | + + + | Preferred Language | Unknown | + + + | Marital Status | Single | + + + | Latter-Day Affiliation | Unknown | + + + | Race | Unknown | + + + | Ethnic Group | Unknown | + + + Author + + + | Author | [facility] | | | and [place] | + + + | Organization | [facility] | | | and [place] | + + + | Address | Unknown | + + + | Phone | Unavailable | + + + Support + + + + + | Name | Relationship | Address | Phone | + + + + + | India Tilley | ECON | [id number] | | | | | [place], [place] | | | | | [address] | | + + + + + | Yina La | ECON | Unknown | | + + + + + | Yina Peterson | ECON | Unknown | | + + + + + | Leatha Casillas | ECON | Unknown | | + + + + + Care Team Providers + +------+ + | Care Research Laboratory Specialist Name | Role | Phone | + +------+ + PCP | Unavailable | + +------+ + Encounter Details +--------+ + + + + | Date | Type | Department | Care Team | Description | +--------+ + + + + | 10/27/ | Abstract | [facility] | Gopi Muñoz | | | 2017 | | NEPHROLOGY [address] | M, DO [address] | | | | | [address] [facility] [address] | [place], [facility] [address] | | | | | [place], [place] | [place] | | | | | [address] | [address] | | | | | [phone] | | | +--------+ + + + [...] | EXTERNAL LAB: BUN | Routin | 10/25/2017 | | Results for this | | | e | | | procedure are in the | | | | | | results section. | + +--------+ + + + | EXTERNAL LAB: | Routin | 10/25/2017 | | Results for this | | GLUCOSE | e | | | procedure are in the | | | | | | results section. | + +--------+ + + + | EXTERNAL LAB: ALT | Routin | 10/25/2017 | | Results for this | | | e | | | procedure are in the | | | | | | results section. | + +--------+ + + + | EXTERNAL LAB: AST | Routin | 10/25/2017 | | Results for this | | | e | | | procedure are in the | | | | | | results section. | + +--------+ + + + | EXTERNAL LAB: | Routin | 10/25/2017 | | Results for this | | ALKALINE PHOSPHATASE | e | | | procedure are in the | | | | | | results section. | + +--------+ + + + | EXTERNAL LAB: | Routin | 10/25/2017 | | Results for this | | BILIRUBIN, TOTAL | e | | | procedure are in the | | | | | | results section. | + +--------+ + + + | EXTERNAL LAB: | Routin | 10/25/2017 | | Results for this | | ALBUMIN | e | | | procedure are in the | | | | | | results section. | + +--------+ + + + | EXTERNAL LAB: | Routin | 10/25/2017 | | Results for this | | PROTEIN, TOTAL | e | | | procedure are in the | | | | | | results section. | + +--------+ + + + | EXTERNAL LAB: | Routin | 10/25/2017 | | Results for this | | PHOSPHORUS | e | | | procedure are in the | | | | | | results section. | + +--------+ + + + | EXTERNAL LAB: | Routin | 10/25/2017 | | Results for this | | CALCIUM | e | | | procedure are in the | | | | | | results section. | + +--------+ + + + | EXTERNAL LAB: CARBON | Routin | 10/25/2017 | | Results for this | | DIOXIDE | e | | | procedure are in the | | | | | | results section. | + +--------+ + + + | EXTERNAL LAB: | Routin | 10/25/2017 | | Results for this | | CHLORIDE | e | | | procedure are in the | | | | | | results section. | + +--------+ + + + | EXTERNAL LAB: | Routin | 10/25/2017 | | Results for this | | POTASSIUM | e | | | procedure are in the | | | | | | results section. | + +--------+ + + + | EXTERNAL LAB: SODIUM | Routin | 10/25/2017 | | Results for this | | | e | | | procedure are in the | | | | | | results section. | + +--------+ + + + | EXTERNAL LAB: | Routin | 10/25/2017 | | Results for this | | VITAMIN D, | e | | | procedure are in the | | 25-HYDROXY | | | | results section. | + +--------+ + + + | EXTERNAL LAB: FELIPE, | Routin | 10/25/2017 | | Results for this | | INTACT | e | | | procedure are in the | | | | | | results section. | + +--------+ + + + | EXTERNAL LAB: CBC | Routin | 10/25/2017 | | Results for this | | | e | | | procedure are in the | | | | | | results section. | + +--------+ + + + | EXTERNAL LAB: EGFR | Routin | 10/25/2017 | | Results for this | | | e | | | procedure are in the | | | | | | results section. | + +--------+ + + + | EXTERNAL LAB: | Routin | 10/25/2017 | | Results for this | | CREATININE | e | | | procedure are in the | | | | | | results section. | + +--------+ + + + documented in this encounter Results External Lab: CBC (10/25/2017) + + + + + + | Component | Value | Ref Range | Performed | Pathologist | | | | | At | Signature | + + + + + + | WBC, | 7.6 | 4 - 11 | EXTERNAL | | | External | | | LAB | | + + + + + + | HGB, | 10.4 (A) | 12 - 16 | EXTERNAL | | | External | | | LAB | | + + + + + + | HCT, | 29.6 (A) | 35 - 45 | EXTERNAL | | | External | | | LAB | | + + + + + + | PLT, | 191 (A) | 70 - 100 | EXTERNAL | | | External | | | LAB | | + + + + + + | RBC, | 3.27 (A) | 4 - 6 | EXTERNAL | | | External | | | LAB | | + + + + + + | MCV, | 90 | 80 - 100 | EXTERNAL | | | External | | | LAB | | + + + + + + | RDW, | 14.7 | 10.5 - 15 | EXTERNAL | | | External | | | LAB | | + + + + + + + +---------+ + + | Performing | Address | City/State/Zipcode | Phone Number | | Organization | | | | + +---------+ + + | EXTERNAL LAB | | | | + +---------+ + + External Lab: PTH, Intact (10/25/2017) + +---------+ + + + | Component | Value | Ref Range | Performed | Pathologist | | | | | At | Signature | + +---------+ + + + | PTH Intact, | 193 (A) | 12 - 88 | | | | External | | | | | + +---------+ + + + + + | Specimen | + + | | + + External Lab: BUN (10/25/2017) + +--------+ + + + | Component | Value | Ref Range | Performed | Pathologist | | | | | At | Signature | + +--------+ + + + | BUN, | 40 (A) | 6 - 23 | EXTERNAL | | | External | | | LAB | | + +--------+ + + + + +---------+ + + | Performing | Address | City/State/Zipcode | Phone Number | | Organization | | | | + +---------+ + + | EXTERNAL LAB | | | | + +---------+ + + External Lab: Glucose (10/25/2017) + +-------+ + + + | Component | Value | Ref Range | Performed | Pathologist | | | | | At | Signature | + +-------+ + + + | Glucose, | 89 | 70 - 100 | EXTERNAL | | | External | | | LAB | | + +-------+ + + + + +---------+ + + | Performing | Address | City/State/Zipcode | Phone Number | | Organization | | | | + +---------+ + + | EXTERNAL LAB | | | | + +---------+ + + External Lab: ALT (10/25/2017) + +-------+ + + + | Component | Value | Ref Range | Performed | Pathologist | | | | | At | Signature | + +-------+ + + + | ALT, | 10 | 0 - 33 | EXTERNAL | | | External | | | LAB | | + +-------+ + + + + +---------+ + + | Performing | Address | City/State/Zipcode | Phone Number | | Organization | | | | + +---------+ + + | EXTERNAL LAB | | | | + +---------+ + + External Lab: AST (10/25/2017) + +-------+ + + + | Component | Value | Ref Range | Performed | Pathologist | | | | | At | Signature | + +-------+ + + + | AST, | 14 | 0 - 32 | EXTERNAL | | | External | | | LAB | | + +-------+ + + + + +---------+ + + | Performing | Address | City/State/Zipcode | Phone Number | | Organization | | | | + +---------+ + + | EXTERNAL LAB | | | | + +---------+ + + External Lab: Alkaline Phosphatase (10/25/2017) + +-------+ + + + | Component | Value | Ref Range | Performed | Pathologist | | | | | At | Signature | + +-------+ + + + | ALP, | 70 | 35 - 130 | EXTERNAL | | | External | | | LAB | | + +-------+ + + + + +---------+ + + | Performing | Address | City/State/Zipcode | Phone Number | | Organization | | | | + +---------+ + + | EXTERNAL LAB | | | | + +---------+ + + External Lab: Bilirubin, Total (10/25/2017) + +-------+ + + + | Component | Value | Ref Range | Performed | Pathologist | | | | | At | Signature | + +-------+ + + + | Bilirubin, | 0.4 | 0.2 - 1.2 | EXTERNAL | | | Total, | | | LAB | | | External | | | | | + +-------+ + + + + +---------+ + + | Performing | Address | City/State/Zipcode | Phone Number | | Organization | | | | + +---------+ + + | EXTERNAL LAB | | | | + +---------+ + + External Lab: Albumin (10/25/2017) + +---------+ + + + | Component | Value | Ref Range | Performed | Pathologist | | | | | At | Signature | + +---------+ + + + | Albumin, | 2.7 (A) | 3.5 - 5.2 | EXTERNAL | | | External | | | LAB | | + +---------+ + + + + +---------+ + + | Performing | Address | City/State/Zipcode | Phone Number | | Organization | | | | + +---------+ + + | EXTERNAL LAB | | | | + +---------+ + + External Lab: Protein, Total (10/25/2017) + +-------+ + + + | Component | Value | Ref Range | Performed | Pathologist | | | | | At | Signature | + +-------+ + + + | Protein, | 6.6 | 6 - 8 | EXTERNAL | | | Total, | | | LAB | | | External | | | | | + +-------+ + + + + +---------+ + + | Performing | Address | City/State/Zipcode | Phone Number | | Organization | | | | + +---------+ + + | EXTERNAL LAB | | | | + +---------+ + + External Lab: Phosphorus (10/25/2017) + +---------+ + + + | Component | Value | Ref Range | Performed | Pathologist | | | | | At | Signature | + +---------+ + + + | Phosphorus, | 5.4 (A) | 2.6 - 4.4 | EXTERNAL | | | External | | | LAB | | + +---------+ + + + + +---------+ + + | Performing | Address | City/State/Zipcode | Phone Number | | Organization | | | | + +---------+ + + | EXTERNAL LAB | | | | + +---------+ + + External Lab: Calcium (10/25/2017) + +-------+ + + + | Component | Value | Ref Range | Performed | Pathologist | | | | | At | Signature | + +-------+ + + + | Calcium, | 8.5 | 8.4 - 10.2 | EXTERNAL | | | External | | | LAB | | + +-------+ + + + + +---------+ + + | Performing | Address | City/State/Zipcode | Phone Number | | Organization | | | | + +---------+ + + | EXTERNAL LAB | | | | + +---------+ + + External Lab: Carbon Dioxide (10/25/2017) + +-------+ + + + | Component | Value | Ref Range | Performed | Pathologist | | | | | At | Signature | + +-------+ + + + | Carbon | 26 | 23 - 32 | EXTERNAL | | | Dioxide, | | | LAB | | | External | | | | | + +-------+ + + + + +---------+ + + | Performing | Address | City/State/Zipcode | Phone Number | | Organization | | | | + +---------+ + + | EXTERNAL LAB | | | | + +---------+ + + External Lab: Chloride (10/25/2017) + +-------+ + + + | Component | Value | Ref Range | Performed | Pathologist | | | | | At | Signature | + +-------+ + + + | Chloride, | 103 | 100 - 110 | EXTERNAL | | | External | | | LAB | | + +-------+ + + + + +---------+ + + | Performing | Address | City/State/Zipcode | Phone Number | | Organization | | | | + +---------+ + + | EXTERNAL LAB | | | | + +---------+ + + External Lab: Potassium (10/25/2017) + +-------+ + + + | Component | Value | Ref Range | Performed | Pathologist | | | | | At | Signature | + +-------+ + + + | Potassium, | 4.9 | 3.5 - 5.1 | EXTERNAL | | | External | | | LAB | | + +-------+ + + + + +---------+ + + | Performing | Address | City/State/Zipcode | Phone Number | | Organization | | | | + +---------+ + + | EXTERNAL LAB | | | | + +---------+ + + External Lab: Sodium (10/25/2017) + +-------+ + + + | Component | Value | Ref Range | Performed | Pathologist | | | | | At | Signature | + +-------+ + + + | Sodium, | 143 | 135 - 145 | EXTERNAL | | | External | | | LAB | | + +-------+ + + + + +---------+ + + | Performing | Address | City/State/Zipcode | Phone Number | | Organization | | | | + +---------+ + + | EXTERNAL LAB | | | | + +---------+ + + External Lab: Vitamin D, 25-Hydroxy (10/25/2017) + +--------+ + + + | Component | Value | Ref Range | Performed | Pathologist | | | | | At | Signature | + +--------+ + + + | Vitamin D, | 18 (A) | 30 | EXTERNAL | | | 25-Hydroxy, | | | LAB | | | External | | | | | + +--------+ + + + + + | Specimen | + + | Blood | + + + +---------+ + + | Performing | Address | City/State/Zipcode | Phone Number | | Organization | | | | + +---------+ + + | EXTERNAL LAB | | | | + +---------+ + + External Lab: eGFR (10/25/2017) + +--------+ + + + | Component | Value | Ref Range | Performed | Pathologist | | | | | At | Signature | + +--------+ + + + | eGFR, | 13 (A) | 60 | EXTERNAL | | | External | | | LAB | | + +--------+ + + + + + | Specimen | + + | Blood | + + + +---------+ + + | Performing | Address | City/State/Zipcode | Phone Number | | Organization | | | | + +---------+ + + | EXTERNAL LAB | | | | + +---------+ + + External Lab: Creatinine (10/25/2017) + + + + + + | Component | Value | Ref Range | Performed | Pathologist | | | | | At | Signature | + + + + + + | Creatinine, | 3.49 (A) | 0.6 - 1.3 | EXTERNAL | | | External | | | LAB | | + + + + + + + + | Specimen | + + | Blood | + + + +---------+ + + | Performing | Address | City/State/Zipcode | Phone Number | | Organization | | | | + +---------+ + + | EXTERNAL LAB | | | | + +---------+ + + documented in this encounter Visit Diagnoses Not on filedocumented in this encounter"
--- OUTSIDE RECORDS SUMMARY | ~2019-08-24 | XMS | Encounter Summary ---
Demographics + + + | Address | [address] | | | [place] [address] | + + + | Home Phone [...] + | Author | [facility] | | | and [place] | + + + | Organization | [facility] | | | and [place] | + + + | Address | Unknown | + + + | Phone | Unavailable | + + + Support + + + + + | Name | Relationship | Address | Phone | + + + + + | India Tilley | ECON | [address] | | | | | [place], [place] | | | | | [address] | | + + + + + | Yina La | ECON | Unknown | | + + + + + | Yina Peterson | ECON | Unknown | | + + + + + | Leatha Casillas | ECON | Unknown | | + + + + + Care Team Providers + +------+ + | Care Hairspring Truer Name | Role | Phone | + +------+ + PCP | Unavailable | + +------+ + Encounter Details +--------+ + + + + | Date | Type | Department | Care Team | Description | +--------+ + + + + | 07/23/ | Hospital | [facility] | Patricia, | | | 2006 - | Encounter | [facility] | Venkatesh Forte MD [address] | | | | | [place] [address] | [facility] | | | 08/12/ | | [place], [place] | [place] [address] | | | 2006 | | [address] | [phone] | | | | | [phone] | | | +--------+ + + + [...]
--- OUTSIDE RECORDS SUMMARY | ~2019-08-24 | XMS | Encounter Summary ---
Demographics + + + | Address | [address] | | | [place] [address] | + + + | Home Phone [...] | Author | [facility] | | | and Kamaljitana | + + + | Organization | [facility] | | | and [place] | + + + | Address | Unknown | + + + | Phone | Unavailable | + + + Support + + + + + | Name | Relationship | Address | Phone | + + + + + | India Tilley | ECON | [id number] | | | | [place], [place] | | | | | [address] | | + + + + + | Yina La | ECON | Unknown | | + + + + + | Yina Peterson | ECON | Unknown | | + + + + + | Leatha Casillas | ECON | Unknown | | + + + + + Care Team Providers + +------+ + | Care Bottling Machine Operator Name | Role | Phone | [...] + + | 11/08/ | Surgery | JIMJOSE ADora ROMERO | Nora Leo MD | Tunneled | | 2018 | | [facility] | [address] [place] | Hemodialysis | | | | [address] | [place] [address] | Catheter Placement | | | | [place], [place] | [phone] | | | | | [phone] | | | | | | [phone] | | | +--------+---------+ + + + [...] + + + | Blood Pressure | 172/77 | 11/09/2017 3:46 PM | | | | | PST | | + + + + + | Pulse | 72 | 11/09/2017 3:46 PM | | | | | PST | | + + + + + | Temperature | 36.4 C (97.5 F) | 11/09/2017 3:46 PM | | | | | PST | | + + + + + | Respiratory Rate | 16 | 11/09/2017 3:46 PM | | | | | PST | | + + + + + | Oxygen Saturation | 98% | 11/09/2017 3:46 PM | | | | | PST [...] might be differ ent from the original. [place] HOSPITALIST DISCHARGE SUMMARY Pt. Name/Age/: Estefani Nicolas Andres 72 y.o. 1945 Date of Admission: 11/01/2017 [...] Three times a week. aka: EPOGEN, PROCRIT Start: 11/10/2017 HYDROcodone-acetaminophen 5-325 mg per tablet [...] insulin glargine 100 units/mL injection (vial) aka: [facility] COURSE: Please refer to the H&P for full details and the most recent rounding rounding (progress) n ote. In short this is a 72-year-old woman, history of hypertension, diabetes mellitus type 2 on insulin, chronic kidney disease of stage V, CAD, who presented to [facility] after be ing found down in her [...] evaluation. At [facility] of [facility], patient was feeling much better and was [...] patient was switched to Levaquin. During evaluation pam posadas had a CT of the abdomen and [...] n/a DISPOSITION AND DISCHARGE INSTRUCTIONS: Follow-up Information [facility] On 11/10/2017. Why: 1:00pm Contact information: [address] [place] [id number] Follow up In 3 days. Francisca Womack PA-C In 3 days. Specialty: Internal Medicine Contact information: [address] [place] [address] Hemodialysis In 1 day. Contact information: Appointment at 1:30 PM Condition: Patient being discharged with condition improved and stable Diet: renal, carbohydrate controlled Greater than 30 minutes were spent on discharge and coordination of post-hospital care. Electronically signed by: Mayelin Vega MD, 11/09/2017 11:06 [facility] Portions of this chart may have been created with [employer] voice recognition software. Occasi onal wrong-word or sound-alike substitutions may have occurred due to the inherent mckeon itations of voice recognition software. Please read the chart carefully and recognize, using context, where these substitutions have occurred documented in this encounter Discharge Instructions AttachmentsThe following attachments cannot be sent through Care Everywhere.Balancing Calci um and Phosphorus, Kidney Disease (Congolese)Hemodialysis (Congolese)documented in this encounte r Medications at Time [...] Muñoz, DO - 11/09/2017 6:18 PM PST [facility] [address] [place] [address] PROGRESS NOTE Pt. Name/Age/: Estefani Tilley 72 y.o. 1945 Med. Record Number: [id number] Date of admission: 11/01/2017 NEPHROLOGY HPI - [...] 3. Complete 10 days total of AB's. [facility] Nora Headley MD - 11/09/2017 4:24 PM PST Doing well today Dialysis run went well Does have some pain at neck and chest HD catheter sites, controlled with PO meds Vitals: 11/09/17 1445 11/09/17 1500 11/09/17 1515 11/09/17 1546 [...] Chayo Rodarte RN 11/09/2017 16:05 Dalia Finnegan MSW - 11/09/2017 11:00 AM PSTRoryhor met with Nikki, and RN was present also. She was sitting up in her bed, receiving dialysis treatment, alert and orientedx4, and her manner was guarded at irst but then she engaged fully with author, even joking around at times. Author facilitated abbreviated goals of care discussion, then followed up with bharathancelizabeth. Nikki began t he goals conversation by saying that she doesn't make goals, she is spontaneous and doesn't really believe in making plans. However, she then offered the example of what she would want to pursue medically ifpame got in an accident, and was able to proceed with the conversation within that context. While author was asking her the advance directive questions, klaudia whitney asked to attend, and she agreed. Nikki was raised in [place] and in [place], [place]. She has two brothers and two sisters, and h ad 4 children of her own. Her oldest child, daughter, two months ago. Nikki is gri eving her loss and teared up while talking about her. Her other children live in [place] and one son has been in [place] for 23 years. She hasn't seen him since he was arr ested and is hopeful she will get to see him next year, as he is schedule to be released at that time. 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 She has at least 4 ye ars post high school education and studied journalism. In the years prior to [employer], she worked at [employer]. Nikki's mother had chronic kidney disease and went through dialysis and eventually decided to stop seeking treatment, soon thereafter. This, coupled with the fact that sever al other of her family members have had renal disease, makes that fact that Nikki must now cho ose to participate in dialysis an emotional issue for her. She also feels as though she christopher ot continue to live the same way, being spontaneous, and picking up and going to the [facility] [place]. She must plan it out, and that feels antithetical to her nature. Ginger escamilla was present and attentive while she discussed her grief around losing her family member s and her lifestyle, offered supportive membership counselor. Chayo Ramirez RN - 11/09/2017 10:00 AM Cam RN arrived at [facility]'s room around 0800 to begin dialysis. Afte [...] up to do things." This RN reordered Estefani breakfast with items that she chose and gave her time to eat while straightening the room up. Time allowed to use the restroom prior to initiating dialysis. After eating and having time to get situated Estefani appeared more relaxed and was ok with s tarting dialysis. Electronically signed by: Chayo Rodarte RN 11/09/2017 10:38 India Santiago ARN P - 11/08/2017 6:50 PM Cam provider, Palliative Care KAYLA, met briefly with "Nikki" Jose Raul rebecca this morning to introduce palliative care [...] this note might be different from the [facility] [place] [facility] PROGRESS NOTE Patient: Estefani Tilley : 1945: Age: 72 y.o. MedRec: [id number] Admission date: 11/01/2017 Hospital day # : [...] Route Frequency Provider Last Rate Last Dose [MAR Hold] acetaminophen (TYLENOL) tablet 650 mg 650 [...] Subcutaneous Once per day on Wed Gopi Samuelcaio, DO 10,000 Units at 0939 [NOV Hold] ferric gluconate (FERRLECIT) 125 mg in sodium chloride 0.9% 100 mL IVPB 125 mg Intravenous Daily Gopi Samuelcaio, DO 110 mL/hr at 11/07/17 1143 125 mg at 11/07/17 1 143 [NOV Hold] furosemide (LASIX) tablet 80 mg 80 mg Oral BID (8 and 16) Darlin Moseley MD 80 mg at 11/07/17 1712 [NOV Hold] gabapentin (NEURONTIN) capsule 100 mg 100 mg Oral Daily at Noon Rupal lomas MD 100 mg at 11/07/17 1159 [NOV Hold] gabapentin (NEURONTIN) capsule 200 mg 200 mg Oral BID Rupal Laguna MD 2 00 mg at 11/07/173 [NOV Hold] heparin 1,000 units/mL injection 500 [...] mg/m L 0.25 mg [facility] Master Nora Leo MD [NOV Hold] labetalol (NORMODYNE) tablet 100 mg 100 mg Oral BID Darlin Moseley MD 100 mg at 11/08/17 0948 [MAR Hold] levoFLOXacin (LEVAQUIN) tablet 750 mg 750 mg Oral Every Other Day Olegario feliz MD 750 mg at 11/08/17 0945 [MAR Hold] levothyroxine (SYNTHROID) tablet 75 mcg 75 mcg Oral QAM AC Jessie Diop D 75 mcg at 11/07/17 0642 [MAR Hold] lidocaine (LIDODERM) 5% patch 1 patch 1 patch Transdermal Daily PRN Rupal Laguna MD [MAR Hold] losartan (COZAAR) tablet 25 mg 25 mg Oral Daily Darlin Moseley MD 25 m g at 11/08/17 0948 [MAR Hold] olopatadine (PATANOL) 0.1% ophthalmic solution 1 drop 1 drop Both Eyes BID Rupal Laguna MD 1 drop at 11/08/17 0956 [MAR Hold] ondansetron (ZOFRAN) injection 4 mg 4 mg Intravenous Q6H PRN Rupal Laguna MD 4 mg at 11/05/17 1745 [MAR Hold] pantoprazole (PROTONIX) DR tablet 40 mg 40 mg Oral QAM Rupal Laguna MD 40 mg at 11/07/17 [...] strength intact Assessment and Plan 1. Sepsis 10/15 to likely UTI +/- CAP- initially presented with hypoglycemia and hypothermia, started having fevers on 11/02. -Blood culture 11/02 09/16 Strep Bovis. 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 CAD- no signs of ACS, EKG RBBB, trop 0.03 at OSH -Continue aspirin, lipitor 4. Hypothyroidism -TSH WNL -Continue levothyroxine 5. HTN uncontrolled -Continue Labetalol and furosemide -Continue losartan 25 mg daily PPX: HSQ FEN: renal Myaelin Vega 11/08/2017 11:50 [facility] Nora Headley MD - 11/08/2017 10:06 AM [...] might be different f rom the original. [facility] [place] HOSPITALIST PROGRESS NOTE Patient: Estefani Tilley : 1945: Age: 72 y.o. MedRec: [id number] Admission date: 11/01/2017 Hospital day # : [...] patch 1 patch 1 patch Transdermal Daily PRPennie Laguna MD losartan (COZAAR) tablet 25 mg [...] powder 17 g 17 g Oral Daily PRPennie Laguna MD senna (SENOKOT) tablet 8.6 mg [...] Procedure Component Value Units Date/Time Culture, Blood [[id number]] (Normal) Collected: 11/04/172121 Order Status: Completed Lab Status: Preliminary result Updated: 11/05/17 09 Specimen: Blood from Line Culture No growth: Monitored continually by instrument for 5 days Culture, Blood [[id number]] (Normal) Collected: 11/04/172102 Order Status: Completed Lab [...] Wednesday to determine if 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 CAD- no signs of ACS, EKG RBBB, trop 0.03 at OSH -Continue aspirin, lipitor 4. Hypothyroidism -TSH WNL -Continue levothyroxine 5. HTN uncontrolled -Continue Labetalol and furosemide -restart losartan 25 mg daily PPX: HSQ FEN: renal Mayelin Vega 11/07/2017 12:57 [facility] Cordell Palmer MD - 11/07/2017 9:43 AM PSTFormatting of this note might be different from the maynor rollins [facility] NEPHROLOGY progress note Patient: Estefani Tilley : 1945 Hospital Day # 6 [...] Darlin Moseley MD Electronically signed: 11/07/2017 9:43 [facility] NEPHROLOGY Olegario Keen M D - 11/06/2017 2:15 PM PST [facility] [place] HOSPITALIST PROGRESS NOTE Patient: Estefani Tilley : 1945: Age: 72 y.o. MedRec: [id number] Admission date: 11/01/2017 Hospital day # : [...] Procedure Component Value Units Date/Time Culture, Blood [[id number]] (Normal) Collected: 11/04/172121 Order Status: Completed Lab Status: Preliminary result Updated: 11/05/17930 Specimen: Blood from Line Culture No growth: Monitored continually by instrument for 5 days Culture, Blood [[id number]] (Normal) Collected: 11/04/172102 Order Status: Completed Lab Status: Preliminary result Updated: 11/05/17 09 Specimen: Blood from Line Culture No growth: Monitored continually by instrument for 5 days Culture, Blood [[id number]] (Normal) Collected: 11/03/17 1506 Order Status: Completed Lab Status: Preliminary result Updated: 11/04/17 031 Specimen: Blood from Peripheral Blood Culture No [...] to likely UTI +/- CAP Plan Sepsis 2/2 to likely UTI +/- CAP procal negative. [...] d in setting of active infection Bear devgger was initially on, but temp normalized. CXR [...] to determ ine if permacath needed for half-way dialysis CAD no signs of ACS, EKG [...] BID PRN Olegario Peng 11/06/2017 14:15 [facility] Darlin Palmer M D - 11/06/2017 9:10 AM PST [facility] NEPHROLOGY progress note Patient: Estefani Tilley : 1945 Hospital Day # 5 [...] Continuous Infusions: Heparin Infusion 200 Units/hr (11/06/17 2037) PRN Meds:acetaminophen, albumin, albuterol, bisacodyl, Hypoglycemia Management [...] Darlin Moseley MD Electronically signed: 11/06/2017 9:11 [facility] NEPHROLOGY Olegario Keen M D - 11/05/2017 2:08 PM PST [facility] [place] HOSPITALIST PROGRESS NOTE Patient: Estefani Tilley : 1945: Age: 72 y.o. MedRec: [id number] Admission date: 11/01/2017 Hospital day # : [...] 1,500-6,000 Units 1,500-6,000 Units Intercatheter PRN Gopi Muñoz, 2,800 Units at 11/04/17 2133 HYDROcodone-acetaminophen (NORCO) [...] AC Rupal Laguna MD 75 mcg at 11/05/17 0637 [...] Procedure Component Value Units Date/Time Culture, Blood [[id number]] (Normal) Collected: 11/04/172 Order Status: Completed Lab Status: Preliminary result Updated: 11/05/17 0931 Specimen: Blood from Line Culture No growth: Monitored continually by instrument for 5 days Culture, Blood [[id number]] (Normal) Collected: 11/04/17 2103 Order Status: Completed Lab Status: Preliminary result Updated: 11/05/17 0911 Specimen: Blood from Line Culture No growth: Monitored continually by instrument for 5 days Culture, Blood [[id number]] (Normal) Collected: 11/03/17 1506 Order Status: Completed Lab Status: Preliminary result Updated: 11/04/17 0311 Specimen: Blood from Peripheral Blood Culture No growth: Monitored continually by instrument for 5 days Culture, Blood [[id number]] (Abnormal) Collected: 11/03/17 0812 Order Status: Completed Lab Status: Preliminary result Updated: 11/05/17 0751 Specimen: Blood from Arm, Left Culture Positive Blood Culture (AA) Staphylococcus coagulase negative Comment: Identification and susceptibility to follow. Probable contaminant Gram Stain Result Gram positive cocci in clusters Comment: 2 of 4 bottles positive Culture, Respiratory, Lower, Smear [[id number]] Collected: 11/03/17 0727 Order Status: Completed Lab [...] d in setting of active infection Bear devgger was initially on, but temp normalized. CXR [...] due to Colon cancer risk CKD IV/V Muhurker placed on 11/03 for [...] BID PRN Olegario Peng 11/05/2017 14:08 [facility] Darlin Palmer M D - 11/05/2017 1:53 PM PST [facility] NEPHROLOGY progress note Patient: Estefani Tilley : 1945 Hospital Day # 4 [...] Darlin Moseley MD Electronically signed: 11/05/2017 13:53 [facility] NEPHROLOGY tGopi rick , DO - 11/04/2017 6:53 PM PST [facility] [address] [place], [place] [id number] PROGRESS NOTE Pt. Name/Age/: Estefani Tilley 72 y.o. 1945 Med. Record Number: [id number] Date of admission: 11/01/2017 NEPHROLOGY HPI - (Pt seen at 1100). Had nocturnal HD last PM, finished 050, tolerated. well. She i s more hopeful [...] kg) Intake/Output Summary (Last 24 hours) at 11/04/17 1853 Last data filed at 11/04/17 1830 Gross [...] HD. Will do HD x 6 hrs, tonyonis du dora to high Inpt case load here at [facility]. 2. probable pyelonephritis?--Day #3 Ceftriaxone, Day #2 [...] for coverage of both organisms, Q 48H. [facility] Queenie Hall RN - 11/04/2017 10:23 AM PSTPatient transferred from ICU into room 307. Oriented to room an d call light. Bed alarm set. Call light in place. Remains on 2L via nasal canula. Makes need s known. Amanda Keen MD - 11/04/2017 7:21 AM PSTFormatting of this note might be different from the origin al. [facility] [place] HOSPITALIST PROGRESS NOTE Patient: Estefani Tilley : 1945: Age: 72 y.o. MedRec: [id number] Admission date: 11/01/2017 Hospital day # : [...] 2.5 mg Oral Daily Gopi Muñoz, DO atorvaSTATin (LIPITOR) tablet 20 mg 20 [...] saline 50 units/mL infusion 500 Units/hr Intravenous Titrated M karlos Muñoz DO Stopped at 11/04/17 0430 HYDROcodone-acetaminophen (NORCO) 5-325 mg per tablet 1-2 tablet 1-2 tablet Oral Q4H P LISA Laguna MD 2 tablet at 11/04/17 0630 [...] Rupal lomas MD 1 drop at 11/03/17 225 ondansetron (ZOFRAN) injection 4 mg 4 mg Intravenous Q6H PRN Rupal Laguna MD 4 mg at 11/02/17 193 pantoprazole (PROTONIX) DR tablet 40 mg 40 mg Oral QAM AC Rupal Laguna MD 40 mg at 11/04/17 [...] Procedure Component Value Units Date/Time Culture, Blood [[id number]] (Normal) Collected: 11/03/17 1506 Order Status: Completed Lab Status: Preliminary result Updated: 11/04/17 0311 Specimen: Blood from Peripheral Blood Culture No growth: Monitored continually by instrument for 5 days Culture, Blood [[id number]] (Normal) Collected: 11/03/17 0812 Order Status: Completed Lab Status: Preliminary result Updated: 11/03/17 2041 Specimen: Blood from Arm, Left Culture No growth: Monitored continually by instrument for 5 days Culture, Respiratory, Lower, Smear [[id number]] Collected: 11/03/17 0727 Order Status: Completed Lab Status: Preliminary result Updated: 11/03/17 1028 Specimen: Respiratory from Sputum, expectorated Gram Stain Result 3+ White Blood Cells 2+ Epithelial cells 2+ Gram positive cocci 2+ Gram positive bacilli 1+ Hyphael elements Influenza A and B RNA, NAAT [[id number]] (Normal) Collected: 11/02/17 1050 Order Status: Completed Lab Status: Final result Updated: 11/02/17 1125 Specimen: Respiratory from Nares Influenza A PCR Negative Influenza B PCR Negative Culture, Urine [[id number]] Collected: 11/02/17 0740 Order Status: Completed Lab Status: Preliminary result Updated: 11/03/17 1013 Specimen: Urine Culture >100,000 CFU/ml Lactose Fermenting Gram Negative Bacilli Comment: Identification and susceptibility to follow. Culture, Blood [[id number]] (Normal) Collected: 11/02/17 0024 Order Status: Completed Lab Status: Preliminary result Updated: 11/02/17 1241 Specimen: Blood from Peripheral Blood Culture No growth: Monitored continually by instrument for 5 days Culture, Blood [[id number]] (Abnormal) Collected: 11/02/17 0019 Order Status: Completed [...] 15:14 by Edison Short. Narrative: Culture, MRSA [[id number]] Collected: 11/01/172145 Order Status: Completed Lab Status: Final result [...] -Nutrition spoke with patient, appreciate assistance Sepsis 2/2 to likely UTI +/- CAP procal negative. Flu swab negative. Patient started having fevers on 11/02. CXR with mild sc arring at lung apices. CT thorax 11/03 shows multifocal pneumonia. -CT abdomen 11/02 showed ex tensive ground glass opacities within posterior LLL concerning for PNA -Blood culture 11/02 1 Gram + cocci in chains -Repeat UA (+), urine culture >[id number] [id number] lactose fermenting -Continue ceftriaxone started 11/02, azithromycin 11/03 -Blood cultures 11/03 NGTD, will eval for clearance -White count increase in the setting of resolution of hypothermia, will closely monitor for need of abx adjustment, patient has been afebrile CKD IV/V Muhurker placed on 11/03 for initiation of dialysis -On lasix -Appreciate nephrology recs CAD no signs of [...] Min PRN Olegario Peng 11/04/2017 7:21 [facility] Nick Aguillon, RN - 0 11/04/2017 1:06 AM PSTDialysis treatment started and Arterial pressures running in the -400s , trouble shooting ineffective, arterial and venous lines switched, pressures now -50s. Shama sarabia is running appropriately at this moment, will continue monitoring. Nick Guallpa Gopi Mckenna DO - 11/03/2017 11:20 AM PST [facility] [address] [place] [address] PROGRESS NOTE Pt. Name/Age/: Estefani Tilley 72 y.o. 1945 Med. Record Number: [id number] Date of admission: 11/01/2017 NEPHROLOGY HPI - [...] anemia. 4. Encourage ambulation to minimize atelectasis. [facility] Olegario Keen MD - 11/03/2017 7:07 AM PST [facility] [place] HOSPITALIST PROGRESS NOTE Patient: Estefani Tilley : 1945: Age: 72 y.o. MedRec: [id number] Admission date: 11/01/2017 Hospital day # : [...] Daily Rupal Laguna MD 10 mg at 09 aspirin EC tablet 325 mg 325 mg [...] at 11/02/17 1623 2 g at 11/02/17 162 dextrose 10% (D10W) 1,000 mL with sodium chloride 150 mEq infusion Intravenous Contin uous Gopi Muñoz, DO 50 mL/hr at 11/02/17 1047 dextrose [...] Oral BID Rupal Laguna MD Stopped at 2225 levothyroxine (SYNTHROID) tablet 75 mcg 75 mcg [...] BID Rupal lomas MD 1 drop at 11/02/172108 ondansetron (ZOFRAN) injection 4 mg 4 mg Intravenous Q6H PRN Rupal Laguna MD 4 mg at 11/02/17 193 pantoprazole (PROTONIX) DR tablet 40 mg 40 [...] PH UA 6.0 5.0 - 8.0 Specific [place] 1.010 1.001 - 1.030 PROTEIN UA 100 [...] 109 mg/dL POC Glucose Collection Time: 11/02/17 13:35 Result Value Ref Range Glucose, POC [...] Date/Time Influenza A and B RNA, NAAT [[id number]] (Normal) Collected: 11/02/17 1050 Order Status: Completed Lab Status: Final result Updated: 11/02/17 1125 Specimen: Respiratory from Nares Influenza A PCR Negative Influenza B PCR Negative Culture, Urine [[id number]] Collected: 11/02/17 0740 Order Status: Sent Lab Status: In process Updated: 11/02/17 0758 Specimen: Urine Culture, Blood [[id number]] (Normal) Collected: 11/02/17 0024 Order Status: Completed Lab Status: Preliminary result Updated: 11/02/17 1241 Specimen: Blood from Peripheral Blood Culture No growth: Monitored continually by instrument for 5 days Culture, Blood [[id number]] (Abnormal) Collected: 11/02/17 0019 Order Status: Completed Lab Status: Preliminary result Updated: 11/02/17 1515 Specimen: Blood from Peripheral Blood Culture Positive Blood Culture (AA) Gram Stain Result Gram positive cocci in chains Comment: One of four Blood Culture bottles POSITIVE. Critical Result called to and read b ack by Kristen Irving on 11/02/2017 at 15:14 by Edison Short. Narrative: Culture, MRSA [[id number]] Collected: 11/01/17 2146 Order Status: Sent Lab Status: In process [...] arring at lung apices. -Blood culture 11/02 09/16 Gram + cocci in chains -Repeat UA [...] BID PRN Olegario Peng 11/03/2017 7:08 [facility] oltangela, Ta Restrepo, [facility] - 11/02/2017 3:43 PM PST PHARMACY SERVICES: ADMISSION MEDICATION REVIEW Estefani Tilley is a 72 y.o. female admitted on 11/01/17. Patient is a somewhat reliable historian. Location of Patient when reviewed: ED X Medical Floor Patient s prior to admit medication and over the counter (OTC) medications/herbal supplem ents list obtained from: X Verbal interview X Patient able to recall SOME Name, strength, and directions X Pharmacy list names: [facility] MANPOWER DEVELOPMENT SPECIALIST (Prescription Monitoring Program) [facility] reported information X Care Everywhere X [...] Prior to Admission Sig: Patient taking differently BUTTON CLAMPER as: Atorvastatin 20mg 1 tab by mouth nightly 1 tab by mouth every morning Calcium- vitamin d 600-400mg 1 tab by mouth twice daily 1 tab by mouth every morning Duloxetine 30mg DR 1 capsule by mouth daily Patient has not started this medication BUTTON CLAMPER, cortés s not filled at pharmacy [id number] 200mg by mouth twice daily 200mg by mouth every morning labetalol 200mg 1 tab by mouth twice daily Patient has not started this medication BUTTON CLAMPER, has not filled at pharmacy Best possible BUTTON CLAMPER medication list after pharmacy review: Prior to [...] performed and electronically signed by Puja Whitman, Resident Care Associate 2017 15:31 Electronically signed by: Ta Ronquillo [facility] 11/02/2017 15:40 Olegario Keen MD - 11/02/2017 7:21 AM PST [facility] [place] HOSPITALIST PROGRESS NOTE Patient: Estefani Tilley : 1945: Age: 72 y.o. MedRec: [id number] Admission date: 11/01/2017 Hospital day # : [...] Nightly Rupal Laguna MD 20 mg at 5877 bisacodyl (DULCOLAX) suppository 10 mg 10 mg Rectal Daily PRN Rupal Laguna MD calcium carbonate (TUMS) chewable tablet 1,000 mg 1,000 mg Oral Q4H PRN Rupal Laguna MD calcium-vitamin D (OSCAL) 500 mg-200 units per tablet 1 tablet 1 tablet Oral BID Abbie Laguna MD 1 tablet at 11/01/17 2257 dextrose 50% injection 12.5 g 12.5 g [...] BID Rupal Laguna MD 200 mg at 2257 heparin 5,000 units/mL injection 5,000 Units [...] Procedure Component Value Units Date/Time Culture, Blood [[id number]] Collected: 11/02/1723 Order Status: Sent Lab Status: In process Updated: 11/02/1732 Specimen: Blood from Peripheral Blood Culture, Blood [[id number]] Collected: 11/02/1718 Order Status: Sent Lab Status: In process Updated: 11/02/1732 Specimen: Blood from Peripheral Blood Culture, MRSA [[id number]] Collected: 11/01/172145 Order Status: Sent Lab Status: [...] insulin use despite poor PO intake. Bear hugger was initially on, but temp normalized. No [...] Intravenous Continuous Olegario Peng 11/02/2017 7:38 [facility] documented in this e ncounter Plan of [...] | | PERMACATH | | PST | ([facility]) | | + +--------+ + + + [...] [address] | [place] | [phone] | | [facility] | | [address] | | | - LABORATORY | | | | + + + + + Differential, Manual (11/09/2017 6:41 AM PST) + + [...] | Segmented | | K/uL | [facility] | | | Neutrophils [...] + + + + | Total | 100 | | [facility] | | [...] [address] | [place] | [phone] | | [facility] | | [address] | | | - LABORATORY | | | | + + + + + CBC with Differential (11/09/2017 6:41 AM PST) + + + + + + | Component | Value | Ref Range | Performed | Pathologist | | | | | At | Signature | + + + + + + | WBC | 8.9 | 4.0 - 11.0 K/uL [...] | Basophils | | K/uL | [facility] | | | | [...] [address] | [place] | [phone] | | [facility] | | [address] | | | - LABORATORY | | [...] 2.99 (H) | 0.60 - 1.30 | [facility] | | | | | mg/dL | [facility] | | | | | | MEDICAL | | | | | | CENTER - | | | | | | LABORATORY | | + + + + + + | eGFR if not | 15 (L)Comment: | >=60 | [facility] | | | | GLOMERULAR FILTRATION | mL/min/1.73m2 | [facility] | | | [place] | RATE,ESTIMATED | | MEDICAL | | | | mL/min/1.55g0Rmki than | | CENTER - | | [...] | [address] | [place] | [phone] | | [facility] | | [address] | | | - LABORATORY | | [...] + | [facility] | [address] | [place] | [phone] | | [facility] | | [address] | | | - LABORATORY | | [...] [address] | [place] | [phone] | | [facility] | | [address] | | | - LABORATORY | | [...] | | | Surface | | | [facility] | | | Area | | | [...] an appended report. | mL/min | [facility] | | | | These results have been | | MEDICAL | | | | appended to a previously | | CENTER - | | | | final verified report. | | LABORATORY | | + + + + + + | Creatinine, | 34Comment: This is an | mg/dL | [facility] | | | Urine | appended report. These | | [facility] | | | | results have been [...] [address] | [place] | [phone] | | [facility] | | [address] | | | - LABORATORY | | [...] | | | Volume | | | [facility] | | | | | | MEDICAL | | | | | | CENTER - | | | | | | LABORATORY | | + +---------+ + + + | Creatinine, | 34 | mg/dL | [facility] | | | Urine | | | [facility] | | | | | | MEDICAL | | | | | | CENTER - | | | | | | LABORATORY | | + +---------+ + + + | Creatinine, | 500 (L) | 600 - 1,800 | [facility] | | | Urine | | mg/24hrs | [facility] | | | (mg/24hr) | | | [...] + | [facility] | [address] | [place] | [phone] | | [facility] | | [address] | | | - LABORATORY | | [...] [address] | [place] | [phone] | | [facility] | | [address] | | | - LABORATORY | | [...] + | [facility] | [address] | [place] | [phone] | | [facility] | | [address] | | | - LABORATORY | | [...] | | | | mmol/L | [facility] | | | | [...] mL/min/1.73m2 | [facility] | | | [place] | RATE,ESTIMATED | | MEDICAL | | | | mL/min/1.04m0Fsto than | | CENTER - | | [...] ST. | [address] | [place] | [phone] | | [facility] | | [address] | | | - LABORATORY | | | | + + + + + CBC with Differential (11/08/2017 5:28 AM PST) + + + + + + | Component | Value | Ref Range | Performed | Pathologist | | | | | At | Signature | + + + + + + | WBC | 8.9 | 4.0 - 11.0 K/uL | [facility] | | | | | | [facility] | | | | | | MEDICAL | | | | | | CENTER - | | | | | | LABORATORY | | + + + + + + | RBC | 2.81 (L) | 3.70 - 5.20 [...] | Basophils | | K/uL | [facility] | | | | [...] [address] | [place] | [phone] | | [facility] | | [address] | | | - LABORATORY | | [...] | [facility] | [address] | [place] | [phone] | | [facility] | | [address] | | | - LABORATORY | | [...] [address] | [place] | [phone] | | [facility] | | [address] | | | - LABORATORY | | [...] | + + + + + | [facility] | [address] | [place] | [phone] | | [facility] | | [address] | | | - LABORATORY | | [...] + | [facility] | [address] | [place] | [phone] | | [facility] | | [address] | | | - LABORATORY | | [...] | | | Morphology | | | [facility] | | [...] cells noted | [facility] | | | [facility] | | | MEDICAL CENTER | | | - LABORATORY | + + + + + + + + | Performing | Address | City/State/Zipcode | Phone Number | | Organization | | | | + + + + + | [facility] | [address] | [place] | [phone] | | [facility] | | [address] | | | - LABORATORY | | | | + + + + + Magnesium (11/07/2017 5:55 AM PST) + +---------+ + + + | Component | Value | Ref Range | Performed | Pathologist | | | | | At | Signature | + +---------+ + + + | Magnesium | 1.7 (L) | 1.8 - 2.5 mg/dL | [facility] | | | | | [...] ST. | [address] | [place] | [phone] | | [facility] | | [address] | | | - LABORATORY | | | | + + + + + CBC with Differential (11/07/2017 5:55 AM PST) + + + + + + | Component | Value | Ref Range | Performed | Pathologist | | | | | At | Signature | + + + + + + | WBC | 9.9 | 4.0 - 11.0 K/uL | [facility] | | | | | | [facility] | | | | | | MEDICAL | | | | | | CENTER - | | | | | | LABORATORY | | + + + + + + | RBC | 3.02 (L) | 3.70 - 5.20 [...] | Basophils | | K/uL | [facility] | | | | | | MEDICAL [...] [address] | [place] | [phone] | | [facility] | | [address] | | | - LABORATORY | | [...] (H) | 7 - 18 mg/dL | [facility] | | | | | | [facility] | | | | | | MEDICAL | | | | | | CENTER - | | | | | | LABORATORY | | + + + + + + | Creatinine | 2.24 (H) | 0.60 - 1.30 | [facility] | | | | | mg/dL | [facility] | | | | | | MEDICAL | | | | | | CENTER - | | | | | | LABORATORY | | + + + + + + | eGFR if not | 22 (L)Comment: | >=60 | [facility] | | | | GLOMERULAR FILTRATION | mL/min/1.73m2 | [facility] | | | [place] | RATE,ESTIMATED | | MEDICAL | | | | mL/min/1.67n0Naqa than | | CENTER - | | [...] + | [facility] | [address] | [place] | [phone] | | [facility] | | [address] | | | - LABORATORY | | [...] [address] | [place] | [phone] | | [facility] | | [address] | | | - LABORATORY | | [...] [address] | [place] | [phone] | | [facility] | | [address] | | | - LABORATORY | | [...] + | [facility] | [address] | [place] | [phone] | | [facility] | | [address] | | | - LABORATORY | | [...] | | | Estimate | | | [facility] | | | [...] [address] | [place] | [phone] | | [facility] | | [address] | | | - LABORATORY | | | | + + + + + Phosphorus (11/06/2017 6:42 AM PST) + +---------+ + + + | Component | Value | Ref Range | Performed | Pathologist | | | | | At | Signature | + +---------+ + + + | Phosphorus | 2.4 (L) | 2.5 - 4.6 mg/dL | [facility] | | | | | [...] [address] | [place] | [phone] | | [facility] | | [address] | | | - LABORATORY | | [...] [address] | [place] | [phone] | | [facility] | | [address] | | | - LABORATORY | | | | + + + + + CBC with Differential (11/06/2017 6:42 AM PST) + + + + + + | Component | Value | Ref Range | Performed | Pathologist | | | | | At | Signature | + + + + + + | WBC | 9.9 | 4.0 - 11.0 K/uL [...] [address] | [place] | [phone] | | [facility] | | [address] | | | - LABORATORY | | [...] mL/min/1.73m2 | [facility] | | | [place] | RATE,ESTIMATED | | MEDICAL | | | | mL/min/1.91a5Imgx than | | CENTER - | | [...] + | BUN/Creatin | 12.5 | | [facility] | | | ine [...] | + + + + + | [facility] | [address] | [place] | [phone] | | [facility] | | [address] | | | - LABORATORY | | [...] [address] | [place] | [phone] | | [facility] | | [address] | | | - LABORATORY | | [...] | [facility] | [address] | [place] | [phone] | | [facility] | | [address] | | | - LABORATORY | | | | + + + + + POC Glucose (11/05/2017 5:39 PM PST) + +---------+ + + + | Component | Value | Ref Range | Performed | Pathologist | | | | | At | Signature | + +---------+ + + + | Glucose, | 121 (H) | 70 - 109 mg/dL | [facility] | | | POC | | [...] 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 | | |Tricuspid Valve | | |Guyz-wr-bmwjaekn tricuspid regurgitation suggestive of a mildly elevated [...] Volume: 60.67 ml | | | EF Ptvojvkov50% | | | | | | Left [...] Rad Results In - 11/05/2017 4:27 PM PST Transthoracic Echocardiography Report | | (TTE) Demographics Patient Name 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 | |Tricuspid Valve | |Suzf-xf-gzxugzex tricuspid regurgitation suggestive of a mildly elevated [...] LA Volume: 60.67 ml | | EF Fnuxlcgul17% | | | | Left Ventricle | [...] [address] | [place] | [phone] | | [facility] | | [address] | | | - LABORATORY | | [...] [address] | [place] | [phone] | | [facility] | | [address] | | | - LABORATORY | | | | + + + + + Phosphorus (11/05/2017 6:12 AM PST) + +---------+ + + + | Component | Value | Ref Range | Performed | Pathologist | | | | | At | Signature | + +---------+ + + + | Phosphorus | 2.3 (L) | 2.5 - 4.6 mg/dL | [facility] | | | | | [...] [address] | [place] | [phone] | | [facility] | | [address] | | | - LABORATORY | | | | + + + + + Magnesium (11/05/2017 6:12 AM PST) + +-------+ + + + | Component | Value | Ref Range | Performed | Pathologist | | | | | At | Signature | + +-------+ + + + | Magnesium | 1.9 | 1.8 - 2.5 mg/dL | [facility] | | | [...] [address] | [place] | [phone] | | [facility] | | [address] | | | - LABORATORY | | | | + + + + + CBC with Differential (11/05/2017 6:12 AM PST) + + + + + + | Component | Value | Ref Range | Performed | Pathologist | | | | | At | Signature | + + + + + + | WBC | 14.0 (H) | 4.0 - 11.0 K/uL | [facility] | | | | | | [facility] | | | | | | MEDICAL | | | | | | CENTER - | | | | | | LABORATORY | | + + + + + + | RBC | 2.77 (L) | 3.70 - 5.20 [...] + | [facility] | [address] | [place] | [phone] | | [facility] | | [address] | | | - LABORATORY | | [...] mL/min/1.73m2 | [facility] | | | [place] | RATE,ESTIMATED | | MEDICAL | | | | mL/min/1.13y7Qawt than | | CENTER - | | [...] | | | | | mg/dL | [facility] | | | | | | [...] + | [facility] | [address] | [place] | [phone] | | [facility] | | [address] | | | - LABORATORY | | [...] [address] | [place] | [phone] | | [facility] | | [address] | | | - LABORATORY | | [...] + | [facility] | [address] | [place] | [phone] | | [facility] | | [address] | | | - LABORATORY | | [...] [address] | [place] | [phone] | | [facility] | | [address] | | | - LABORATORY | | [...] [address] | [place] | [phone] | | [facility] | | [address] | | | - LABORATORY | | [...] [address] | [place] | [phone] | | [facility] | | [address] | | | - LABORATORY | | | | + + + + + C-Reactive Protein (11/04/2017 4:19 AM PST) + + + + + + | Component | Value | Ref Range | Performed | Pathologist | | | | | At | Signature | + + + + + + | CRP | 253.22 (H) | <8.00 mg/L | [facility] | | | | [...] ST. | [address] | [place] | [phone] | | [facility] | | [address] | | | - LABORATORY | | [...] [address] | [place] | [phone] | | [facility] | | [address] | | | - LABORATORY | | | | + + + + + Magnesium (11/04/2017 4:19 AM PST) + +-------+ + + + | Component | Value | Ref Range | Performed | Pathologist | | | | | At | Signature | + +-------+ + + + | Magnesium | 1.9 | 1.8 - 2.5 mg/dL | [facility] | | | | | | [facility] | | | | | [...] + | [facility] | [address] | [place] | [phone] | | [facility] | | [address] | | | - LABORATORY | | | | + + + + + CBC with Differential (11/04/2017 4:19 AM PST) + + + + + + | Component | Value | Ref Range | Performed | Pathologist | | | | | At | Signature | + + + + + + | WBC | 13.9 (H) | 4.0 - 11.0 K/uL | [facility] | | | | | | [facility] | | | | | | MEDICAL | | | | | | CENTER - | | | | | | LABORATORY | | + + + + + + | RBC | 2.67 (L) | 3.70 - 5.20 [...] | | Eosinophils | | | [facility] | | [...] | | Lymphocytes | | K/uL | [facility] | [...] ST. | [address] | [place], [place] | [phone] | | [facility] | | [address] | | | - LABORATORY | | [...] | | GLOMERULAR FILTRATION | mL/min/1.73m2 | [facility] | | | [place] | RATE,ESTIMATED | | MEDICAL | | | | mL/min/1.88h5Xqqj than | | CENTER - | | [...] | | | | | mg/dL | [facility] | | | | | [...] [address] | [place] | [phone] | | [facility] | | [address] | | | - LABORATORY | | [...] [address] | [place] | [phone] | | [facility] | | [address] | | | - LABORATORY | | [...] + | [facility] | [address] | [place] | [phone] | | [facility] | | [address] | | | - LABORATORY | | [...] [address] | [place] | [phone] | | [facility] | | [address] | | | - LABORATORY | | [...] [address] | [place] | [phone] | | [facility] | | [address] | | | - LABORATORY | | [...] [address] | [place] | [phone] | | [facility] | | [address] | | | - LABORATORY | | [...] | | | POC | | | [facility] | | | | | [...] + | [facility] | [address] | [place] | [phone] | | [facility] | | [address] | | | - LABORATORY | | [...] ST. | [address] | [place] | [phone] | | [facility] | | [address] | | | - LABORATORY | | [...] [address] | [place] | [phone] | | [facility] | | [address] | | | - LABORATORY | | | | + + + + + CT Chest wo Contrast (11/03/2017 10:15 AM PST) + + | Specimen | + + | | + + + + + | Narrative | Performed At | + + + | TECHNIQUE: Noncontrast axial CT imaging was obtained through the | [facility] | | chest with coronal and [...] + | [facility] | [address] | [place], [place] | [phone] | | [facility] | | [address] | | | - LABORATORY | | [...] | | | | (AA) | | [facility] | | | [...] + | [facility] | [address] | [place] | [phone] | | [facility] | | [address] | | | - LABORATORY | | [...] | | | | Emeli | | [facility] | | | [...] + | [facility] | [address] | [place] | [phone] | | [facility] | | [address] | | | - LABORATORY | | [...] [address] | [place] | [phone] | | [facility] | | [address] | | | - LABORATORY | | [...] + | Performed at: 01 - [facility] [place] [address], | REFERENCE LAB | | [place], [place] [id number] Rack Pusher: Ernie Lee MD, Phone: | [facility] | | [phone] | | + + + + + + + + | Performing | Address | City/State/Zipcode | Phone Number | | Organization | | | | + + + + + | REFERENCE LAB | [address] | [place] [address] | [phone] | | [facility] | [address] | | | + + + + [...] [address] | [place] | [phone] | | [facility] | | [address] | | | - LABORATORY | | [...] + | [facility] | [address] | [place] | [phone] | | [facility] | | [address] | | | - LABORATORY | | | | + + + + + CBC with Differential (11/03/2017 5:02 AM PST) + + + + + + | Component | Value | Ref Range | Performed | Pathologist | | | | | At | Signature | + + + + + + | WBC | 10.7 | 4.0 - 11.0 K/uL | [facility] | | | | | | [facility] | | | | | | MEDICAL | | | | | | CENTER - | | | | | | LABORATORY | | + + + + + + | RBC | 2.97 (L) | 3.70 - 5.20 | [facility] | | | | | M/uL | [facility] | | | | | | MEDICAL | | | | | | CENTER - | | | | | | LABORATORY | | + + + + + + | Hemoglobin | 9.0 (L) | 11.5 - 16.0 | [facility] | | | | | g/dL | [facility] | | | | [...] | | Eosinophils | | | [facility] | | [...] | | Lymphocytes | | K/uL | [facility] | [...] [address] | [place] | [phone] | | [facility] | | [address] | | | - LABORATORY | | | | + + + + + Hepatitis A, B, C Panel, Reflex (11/03/2017 5:02 AM PST) + + + [...] | | | | > 0.9 The CDC | | | | | | recommends that a | | | | | | positive HCV antibody | | | | | | result be followed up | | | | | | with a HCV Nucleic Acid | | | | | | Amplification test | | | | | | ([id number]). | | | | + + + + + + + + | Specimen | + + | Blood | + + + + + | Narrative | Performed At | + + + | Performed at: - [place] [address], | REFERENCE LAB | | [place], [place] [id number] Rack Pusher: Ernie Lee MD, Phone: | [facility] | | [phone] | | + + + + + + + + | Performing | Address | City/State/Zipcode | Phone Number | | Organization | | | | + + + + + | REFERENCE LAB | [address] | [place] [address] | [phone] | | [facility] | [address] | | | + + + + [...] mL/min/1.73m2 | [facility] | | | [place] | RATE,ESTIMATED | | MEDICAL | | | | mL/min/1.53m0Nlpt than | | CENTER - | | [...] [address] | [place] | [phone] | | [facility] | | [address] | | | - LABORATORY | | [...] | [facility] | [address] | [place] | [phone] | | [facility] | | [address] | | | - LABORATORY | | [...] + | [facility] | [address] | [place] | [phone] | | [facility] | | [address] | | | - LABORATORY | | [...] | | POC | | | [facility] | | | | | | MEDICAL [...] [address] | [place] | [phone] | | [facility] | | [address] | | | - LABORATORY | | [...] + | [facility] | [address] | [place] | [phone] | | [facility] | | [address] | | | - LABORATORY | | | | + + + + + CT Abdomen Pelvis wo Contrast (11/02/2017 7:27 PM [facility]) + + | Specimen | + [...] ST. | [address] | [place], [place] | [phone] | | [facility] | | [address] | | | - LABORATORY | | [...] [address] | [place] | [phone] | | [facility] | | [address] | | | - LABORATORY | | [...] | [facility] | [address] | [place] | [phone] | | [facility] | | [address] | | | - LABORATORY | | [...] [address] | [place] | [phone] | | [facility] | | [address] | | | - LABORATORY | | | | + + + + + POC Glucose (11/02/2017 12:27 PM PST) + +-------+ + + + | Component | Value | Ref Range | Performed | Pathologist | | | | | At | Signature | + +-------+ + + + | Glucose, | 87 | 70 - 109 mg/dL | [facility] [...] [address] | [place] | [phone] | | [facility] | | [address] | | | - LABORATORY | | [...] [address] | [place] | [phone] | | [facility] | | [address] | | | - LABORATORY | | [...] | | | PCR | | | [facility] | | | [facility] | [facility] | | | | | | [facility] - | | | | | | LABORATORY | | + + + + + + | Influenza B | Negative | Negative | [facility] | | | PCR | | | [facility] | | [...] [address] | [place] | [phone] | | [facility] | | [address] | | | - LABORATORY | | | | + + + + + POC Glucose (11/02/2017 10:34 AM PST) + +-------+ + + + | Component | Value | Ref Range | Performed | Pathologist | | | | | At | Signature | + +-------+ + + + | Glucose, | 74 | 70 - 109 mg/dL | [facility] [...] [address] | [place] | [phone] | | [facility] | | [address] | | | - LABORATORY | | [...] + | [facility] | [address] | [place] | [phone] | | [facility] | | [address] | | | - LABORATORY | | | | + + + + + POC Glucose (11/02/2017 10:05 AM PST) + +--------+ + + + | Component | Value | Ref Range | Performed | Pathologist | | | | | At | Signature | + +--------+ + + + | Glucose, | 58 (L) | 70 - 109 mg/dL | [facility] [...] [address] | [place] | [phone] | | [facility] | | [address] | | | - LABORATORY | | [...] [address] | [place] | [phone] | | [facility] | | [address] | | | - LABORATORY | | [...] (L) | 18 - 38 mg/dL | [facility] | | | | [...] [address] | [place] | [phone] | | [facility] | | [address] | | | - LABORATORY | | | | + + + + + CBC with Differential (11/02/2017 7:41 AM PST) + + + + + + | Component | Value | Ref Range | Performed | Pathologist | | | | | At | Signature | + + + + + + | WBC | 8.8 | 4.0 - 11.0 K/uL | [facility] | | | | | [facility] | | | | | | [facility] | | | | | | [facility] - | | | | | | LABORATORY | | + + + + + + | RBC | 3.04 (L) | 3.70 - 5.20 [...] | | Lymphocytes | | K/uL | [facility] | [...] ST. | [address] | [place] | [phone] | | [facility] | | [address] | | | - LABORATORY | | [...] [address] | [place] | [phone] | | [facility] | | [address] | | | - LABORATORY | | [...] + | [facility] | [address] | [place] | [phone] | | [facility] | | [address] | | | - LABORATORY | | [...] | | | | mg/dL | [facility] | | | | | | [facility] | | | | | | [facility] - | | | | | | LABORATORY | | + + + + + + | eGFR if not | 13 (L)Comment: | >=60 | [facility] | | | | GLOMERULAR FILTRATION | mL/min/1.73m2 | [facility] | | | [facility] | RATE,ESTIMATED | | MEDICAL | | | | mL/min/1.88w3Wjdq than | | CENTER - | | [...] + | [facility] | [address] | [place] | [phone] | | [facility] | | [address] | | | - LABORATORY | | [...] + + | [facility] | [address] | [place] | [phone] | | [facility] | | [address] | | | - LABORATORY | | | | + + + + + Urinalysis with Microscopic with Culture if Indicated (11/02/2017 7:40 AM PST) + + + + + + | Component | Value | Ref Range | Performed | Pathologist | | | | | At | Signature | + + + + + + | Color | Yellow | Light Yellow, | [facility] | | | | | Yellow, Straw | [facility] | | | | | | MEDICAL | | | | | | CENTER - | | | | | | LABORATORY | | + + + + + + | Clarity | Hazy (A) | Clear | [facility] | | | | | [...] - 1.030 | [facility] | | | [place] | | | [facility] | | [...] + + + + + | WBC UA | 50-100 (A) | 0 - 2 /HPF | [facility] | | | | | | [facility] | | | | | | MEDICAL | | | | | | CENTER - | | | | | | LABORATORY | | + + + + + + | WBC CLUMPS | Few (A) | None Seen /HPF | [facility] | | | UA | | | [facility] | | | | | | MEDICAL | | | | | | CENTER - | | | | | | LABORATORY | | + + + + + + | RBC UA | 15-25 (A) | 0 - 2 /HPF | [facility] | | | | | | [facility] | | | | | | MEDICAL | | | | | | CENTER - | | | | | | LABORATORY | | + + + + + + | SQUAMOUS | 5-10 (A) | 0 - 2 /LPF | [facility] | | | EPITHELIAL | | | [facility] | | | [facility]A | | | MEDICAL | | | | | | CENTER - | | | | | | LABORATORY | | + + + + + + | BACTERIA UA | 2+ (A) | Negative /HPF | [facility] | | | | | | [facility] | | | | | | MEDICAL | | | | | | CENTER - | | | | | | LABORATORY | | + + + + + + | MUCUS UA | Present (A) | Negative /LPF | [facility] | | | | | | [facility] | | | | | | MEDICAL | | | | | | CENTER - | | | | | | LABORATORY | | + + + + + + | URINE | Urine Culture Set Up | | [facility] | | | COMMENT | | | [facility] | | [...] + | [facility] | [address] | [place] | [phone] | | [facility] | | [address] | | | - LABORATORY | | [...] | | | | | | [employer] | | | | | [...] + | [facility] | [address] | [place] | [phone] | | [facility] | | [address] | | | - LABORATORY | | [...] [address] | [place] | [phone] | | [facility] | | [address] | | | - LABORATORY | | [...] + | [facility] | [address] | [place] | [phone] | | [facility] | | [address] | | | - LABORATORY | | [...] + | [facility] | [address] | [place] | [phone] | | [facility] | | [address] | | | - LABORATORY | | | | + + + + + CBC with Differential (11/02/2017 12:30 AM PST) + + + + + + | Component | Value | Ref Range | Performed | Pathologist | | | | | At | Signature | + + + + + + | WBC | 7.9 | 4.0 - 11.0 K/uL | [facility] | | | | | | [facility] | | | | | | MEDICAL | | | | | | CENTER - | | | | | | LABORATORY | | + + + + + + | RBC | 3.01 (L) | 3.70 - 5.20 [...] [address] | [place] | [phone] | | [facility] | | [address] | | | - LABORATORY | | | | + + + + + Culture, Blood (11/02/2017 12:24 AM PST) + + + + + + | Component | Value | Ref Range | Performed | Pathologist | | | | | At | Signature | + + + + + + | Culture | No growth after 5 days | | [facility] | | | | incubation. | | [...] [address] | [place] | [phone] | | [facility] | | [address] | | | - LABORATORY | | [...] + | [facility] | [address] | [place] | [phone] | | [facility] | | [address] | | | - LABORATORY | | [...] | third generation TSH | uIU/mL | [facility] | | | | test. | | [...] [address] | [place] | [phone] | | [facility] | | [address] | | | - LABORATORY | | [...] | | | | | | [employer] | | | | | [...] + | [facility] | [address] | [place] | [phone] | | [facility] | | [address] | | | - LABORATORY | | [...] | | | | (AA) | | [facility] | | | | | | MEDICAL | | | | | | CENTER - | | | | | | LABORATORY | | + + + + + + | Culture | Streptococcus | | [facility] | | | | infantarius ssp. coli | | [facility] | | | | (S.bovis) | | [...] + | | [facility] | | | [facility] | | | [facility]ICAL CENTER | | [...] [address] | [place] | [phone] | | [facility] | | [address] | | | - LABORATORY | | [...] [address] | [place] | [phone] | | [facility] | | [address] | | | - LABORATORY | | [...] 3.76 (H) | 0.60 - 1.30 | [facility] | | | | | mg/dL | [facility] | | | | | | MEDICAL | | | | | | CENTER - | | | | | | LABORATORY | | + + + + + + | eGFR if not | 12 (L)Comment: | >=60 | [facility] | | | | GLOMERULAR FILTRATION | mL/min/1.73m2 | [facility] | | | [place] | RATE,ESTIMATED | | MEDICAL | | | | mL/min/1.86w2Ezlp than | | CENTER - | | [...] + | [facility] | [address] | [place] | [phone] | | [facility] | | [address] | | | - LABORATORY | | [...] ST. | [address] | [place], [place] | [phone] | | [facility] | | [address] | | | - LABORATORY | | [...] [address] | [place] | [phone] | | [facility] | | [address] | | | - LABORATORY | | [...] | | chromogenic agar method | | [facility] | | | | | | MEDICAL | | | | | | CENTER - | | | | | | LABORATORY | | + + + + + + | Culture | 1+ Coagulase positive | | [facility] | | | | Staphylococcus | | [facility] | | | [...] | [address] | [place] | [phone] | | [facility] | | [address] | | | - LABORATORY | | [...] for comparison only - no result from [place]. | [facility] | + + + [...] dose on 11/01/17 at 2300 | | PM PST | [...] | capsule 100 mg 100 mg, Oral, | | 18 4:22 | | | [...] | | | NOON, First dose on Tue 18 | | PM PST | | | [...] | | | | | | use [place] 10/325 if ordered. If | | | [...] | | | | | | | 7252-2016 Use NIGHT DOSE for | | | | | | | doses scheduled: HS, 3AM, | | | | | | | Nighttime 2155-4484, | | | | | | + [...] scheduled: AC, | | | NPO, Daytime 5901-1967 Use NIGHT | | | DOSE for doses scheduled: | | | HS, 3AM, Nighttime 2957-2108, | | + +---+ | | | [...] | | | | | | Infiltration, ORE MINER BLASTING, Starting | | | | | | [...] | | | DAY, First dose on Dian 11/04/17 | | AM PST | | [...] | | | DAILY, First dose on [facility] 11/04/17 | | AM PST | [...]
--- OUTSIDE RECORDS SUMMARY | ~2019-08-24 | XMS | Encounter Summary ---
Demographics + + + | Address | [address] | | | [place] [address] | + + + | Home Phone | | + + + | Preferred Language | Unknown | + + + | Marital Status | Single | + + + | Gnosticism Affiliation | Unknown | + + + | Race | Unknown | + + + | Ethnic Group | Unknown | + + + Author + + + | Author | [facility] | | | and [place] | + + + | Organization | [facility] | | | and [place] | + + + | Address | Unknown | + + + | Phone | Unavailable | + + + Support + + + + + | Name | Relationship | Address | Phone | + + + + + | India Tilley | ECON | [address] | | | | | [place], [place] | | | | | [address] | | + + + + + | Yina La | ECON | Unknown | | + + + + + | Yina Peterson | ECON | Unknown | | + + + + + | Leatha Caslilas | ECON | Unknown | | + + + + + Care Team Providers + +------+ + | Care Card Grader Name | Role | Phone | + +------+ + | Renato Pierson PATTERNMAKER GRADER | PCP | | + +------+ + Reason for Visit Evaluate & Treat (Routine) + +--------+ + + + + | Status | Reason | Specialty | Diagnoses / | Referred By | Referred To | | | | | Procedures | Contact | Contact | + +--------+ + + + + | Authorized | | Nephrology | Diagnoses | Vu, | [place], | | | | | End stage | [facility], | Gopi Roman, DO | | | | | renal | PA-C [address] | | | | | disease | [address] | [place], [place] | | | | | (HCC) | [place] | [address] [facility] | | | | | Procedures | [address] | [place], [place] | | | | | [place] ESRD | [place], | [address] Phone: | | | | | RELATED SVC | [place] | [phone] | | | | | MONTHLY | [address] | Fax: | | | | | 20&/> YR OLD | Phone: | [phone] | | | | | 4/> VISITS | [phone] | | | | | | | Fax: | | | | | | | [phone] | | + +--------+ + + + + Encounter Details +--------+ + + + + | Date | Type | Department | Care Team | Description | +--------+ + + + + | 07/10/ | Off-Site | [facility] | Gopi Muñoz | ESRD (end stage | | 2019 | Visit | NEPHROLOGY [address] | M, DO [address] | renal disease) on | | | | [address] | [place] [address] | dialysis (HCC) | | | | [place] | [place] | (Primary Dx) | | | | [address] | [address] | | | | | [phone] | | | +--------+ + + + [...] this encounter Progress Gopi Pugh DO - 07/10/2019 11:00 AM PDT[Not seen.] documented in this encounter Plan of Treatment Not on filedocumented as of this encounter Visit Diagnoses + + | Diagnosis | + + | ESRD (end stage renal disease) on dialysis (HCC) - Primary End stage renal disease | + + documented in this encounter"
--- OUTSIDE RECORDS SUMMARY | ~2019-08-24 | XMS | Encounter Summary ---
Demographics + + + | Address | [address] | | | [place] [address] | + + + | Home Phone | | + + + | Preferred Language | Unknown | + + + | Marital Status | Single | + + + | Jain Affiliation | Unknown | + + + | Race | Unknown | + + + | Ethnic Group | Unknown | + + + Author + + + | Author | [facility] | | | and [place] | + + + | Organization | [facility] | | | and [place] | + + + | Address | Unknown | + + + | Phone | Unavailable | + + + Support + + + + + | Name | Relationship | Address | Phone | + + + + + | India Tilley | ECON | [id number] | | | | | [place], [place] | | | | | [address] | | + + + + + | Yina La | ECON | Unknown | | + + + + + | Yina Peterson | ECON | Unknown | | + + + + + | Leatha Casillas | ECON | Unknown | | + + + + + Care Team Providers + +------+ + | Care Paper Machine Operator Name | Role | Phone | + +------+ + PCP | Unavailable | + +------+ + Encounter Details +--------+ + + + + | Date | Type | Department | Care Team | Description | +--------+ + + + + | 11/08/ | Imaging | [facility] | Provider, | | | 2018 | Exam | MED CTR EXTER[facility] | [address] | | | | | IMAGING | [address] | | | | | [phone] | [place] [address] | | +--------+ + + + + [...] this encounter Results XR Chest 2 VW (06/17/2006 5:35 PM PDT) + + | Specimen | + + | | + + + + + | Narrative | Performed At | + + + | External films for comparison only - no result from [place]. | [facility] | + + + + +---------+ + + | Performing | Address | City/State/Zipcode | Phone Number | | Organization | | | | + +---------+ + + | [facility] | | | | + +---------+ + + documented in this encounter Visit Diagnoses Not on filedocumented in this encounter"
--- OUTSIDE RECORDS SUMMARY | ~2019-08-24 | XMS | Encounter Summary ---
Demographics + + + | Address | [address] | | | [place] [address] | + + + | Home Phone [...] + | Author | [facility] | | | and [place] | + + + | Organization | [facility] | | | and [place] | + + + | Address | Unknown | + + + | Phone | Unavailable | + + + Support + + + + + | Name | Relationship | Address | Phone | + + + + + | India Tilley | ECON | [address] | | | | | [place], [place] | | | | | [address] | | + + + + + | Yina La | ECON | Unknown | | + + + + + | Yina Peterson | ECON | Unknown | | + + + + + | Leatha Casillas | ECON | Unknown | | + + + + + Care Team Providers + +------+ + | Care Supervisor Fabrication Name | Role | Phone | + +------+ + PCP | Unavailable | + +------+ + Encounter Details +--------+ + + + + | Date | Type | Department | Care Team | Description | +--------+ + + + + | 06/19/ | Telephone | [facility] | Ibis Arriola | | | 2019 | | [facility] | L, RN | | | | | [address] | | | | | | [place] | | | | | | [address] | | | | | | [phone] | | | +--------+ + + + [...]
--- OUTSIDE RECORDS SUMMARY | ~2019-08-24 | XMS | Encounter Summary ---
Demographics + + + | Address | [address] | | | [place] [address] | + + + | Home Phone | | + + + | Preferred Language | Unknown | + + + | Marital Status | Single | + + + | Jewish Affiliation | Unknown | + + + | Race | Unknown | + + + | Ethnic Group | Unknown | + + + Author + + + | Author | [facility] | | | and [place] | + + + | Organization | [facility] | | | and [place] | + + + | Address | Unknown | + + + | Phone | Unavailable | + + + Support + + + + + | Name | Relationship | Address | Phone | + + + + + | India T[place]ley | ECON | [phone] | | | | | [place], [place] | | | | | [address] | | + + + + + | Yina La | ECON | Unknown | | + + + + + | Yina Peterson | ECON | Unknown | | + + + + + | Leatha Casillas | ECON | Unknown | | + + + + + Care Team Providers + +------+ + | Care Clod Puller Name | Role | Phone | + +------+ + PCP | Unavailable | + +------+ + Encounter Details +--------+ + + + + | Date | Type | Department | Care Team | Description | +--------+ + + + + | 07/07/ | Abstract | [facility] | Gopi Muñoz | | | 2017 | | NEPHROLOGY [address] | M, DO [address] | | | | | [address] [facility] [address] | [place] [address] | | | | | [place], [place] | [place] | | | | | [address] | [address] | | | | | [phone] | | | +--------+ + + + [...]
--- OUTSIDE RECORDS SUMMARY | ~2019-08-24 | XMS | Encounter Summary ---
Demographics + + + | Address | [address] | | | [place] [address] | + + + | Home Phone [...] + + + | Author | [facility] | | | and [place] | + + + | Organization | [facility] | | | and [place] | + + + | Address | Unknown | + + + | Phone | Unavailable | + + + Support + + + + + | Name | Relationship | Address | Phone | + + + + + | [place] T[place]ley | ECON | [phone] | | | | | [place], [place] | | | | | [address] | | + + + + + | Yina La | ECON | Unknown | | + + + + + | Yina Peterson | ECON | Unknown | | + + + + + | Leatha Casillas | ECON | Unknown | | + + + + + Care Team Providers + +------+ + | Care Clinical Data Manager Name | Role | Phone | + +------+ + PCP | Unavailable | + +------+ + Encounter Details +--------+ + + + + | Date | Type | Department | Care Team | Description | +--------+ + + + + | 12/27/ | Documentati | [facility] | Gopi Muñoz | | | 2019 | on | NEPHROLOGY [address] | M, DO [address] [place] | | | | | [address] | [place] | | | | | [place], [place] | [place] | | | | | [address] | [address] | | | | | [phone] | | | +--------+ + + + [...] Progress Tatiana Gamble - 12/27/2018 9:13 AM [facility] Health order, sign ed and dated 12/23/[address] Muñoz. Sent to scan. documented in this encounter Plan of Treatment Not on filedocumented as of this encounter Visit Diagnoses Not on filedocumented in this encounter"
--- OUTSIDE RECORDS SUMMARY | ~2019-08-24 | XMS | Encounter Summary ---
Demographics + + + | Address | [address] | | | [place] [address] | + + + | Home Phone | | + + + | Preferred Language | Unknown | + + + | Marital Status | Single | + + + | Episcopalian Affiliation | Unknown | + + + | Race | Unknown | + + + | Ethnic Group | Unknown | + + + Author + + + | Author | [facility] | | | and [place]it[place] | + + + | Organization | [facility] | | | and [place] | + + + | Address | Unknown | + + + | Phone | Unavailable | + + + Support + + + + + | Name | Relationship | Address | Phone | + + + + + | India Tilley | ECON | [address] | | | | | [place], [place] | | | | | [address] | | + + + + + | Yina La | ECON | Unknown | | + + + + + | Yina Peterson | ECON | Unknown | | + + + + + | Leatha Casillas | ECON | Unknown | | + + + + + Care Team Providers + +------+ + | Care Mincing Machine Operator Name | Role | Phone | + +------+ + PCP | Unavailable | + +------+ + Reason for Referral Evaluate & Treat (Routine) + + + + + + + | Status | Reason | Specialty | Diagnoses / | Referred By | Referred To | | | | | Procedures | Contact | Contact | + + + + + + + | Pending | Specialty | Home Health | Diagnoses | John, | TODD | | Review | Services | Services | | Michelle Taylor | HELENA | | | Required | | Osteomyeliti | DO [address] | HEALTH CARE | | | | | s, | [address]VE | [address] | | | | | unspecified | FLOOR | [address] | | | | | site, | [place], [place] | [place], [place] | | | | | unspecified | [address] | [address] | | | | | type ([facility]) | Phone: | Phone: | | | | | | [phone] | [phone] | | | | | | Fax: | Fax: | | | | | | [phone] | [phone] | + + + + + + + Reason for Visit Auth/Cert +--------+--------+ + [...] + + + + | 03/24/ | Hospital | [facility] | Erlinda Simon, | Osteomyelitis, | | 2019 - | Encounter | [facility] | MD [address] | unspecified site, | | | | NEPHROLOGY [address], [address] | unspecified type | | 03/31/ | | [address] [place], [place] | [place] [address] | ([facility]) (Primary Dx); | | 2019 | | [address] | [phone] | Discitis of thoracic | | | | [phone] | | region; Other | | | | | Katey Hill MD | secondary | | | | | [address] | osteoarthritis of | | | | | [address]TH FLO[address], | multiple sites; ESRD | | | | | [place] [address] | (end stage renal | | | | | [phone] | disease) on dialysis | | | | | | ([facility]); Essential | | | | | Michelle Lopez, | hypertension; ESRD | | | | | DO [address] | (end stage renal | | | | | [address]TH [address] [place], | disease) ([facility]); Type | | | | | [place] [address] | 2 diabetes mellitus | | | | | [phone] | with stage 4 | | | | | | chronic kidney | | | | | | disease, with | | | | | | long-term current | | | | | | use of insulin ([facility]) | +--------+ + + + + Social [...] completion of IV abx Follow Up Appointments: [facility] [address] [facility] [address] [facility] [address] [place] [id number] [facility] [address] [facility] [address] Discharge Disposition: Home with Home Health Consultants This Admission: ID, Nephrology Hospital Course: 73-year-old female with history of ESRD on hemodialysis, hypertension, type 2 diabetes, hyp othyroidism, chronic anemia, hyperlipidemia with a history of stroke transferred from [facility] for evaluation of T11-T12 lesion noted on [...] initially had planned to go to SNF ([facility] in [place], [place] - of which has accepted her [...] dialysis days after dialysis Osteomyelitis/Discitis of T11, [id number] -MRI spine 03/23/19: "mild paravertebral soft tissue [...] -Continue dialysis and management per nephrology -Has JOSE ANTONIO fistula -Chronic dialysis patient - has OP clinic in [place] already Macrocytic anemia likely secondary to-likely anemia [...] Value Units Date/Time Culture, Aerobic + Anaerobic [[id number]] Collected: 03/24/191513 Order Status: Completed Lab Status: Final result Updated: 03/29/19717 Specimen: Body Fluid from Vertebrae, Thoracic FINAL REPORT -- No Growth No anaerobes isolated Gram Stain Few Neutrophils No squamous epithelial cells seen No organisms seen Comment: Performed by [facility] [address] [place] [address] Gram Stain [[id number]] Collected: 03/24/191513 Order Status: Canceled Lab Status: No result Updated: 03/24/19 1515 Specimen: Body Fluid from Vertebrae, Thoracic Culture, AFB Smear [[id number]] Collected: 03/24/19 1514 Order Status: Completed Lab Status: Preliminary result Updated: 03/25/19 1054 Specimen: Body Fluid from Vertebrae, Thoracic AFB Smear Result No Acid Fast Bacilli Seen Comment: Performed by [facility] [address] [place] [address] Culture, Fungus, Smear [[id number]] Collected: 03/24/19 1514 Order Status: Completed Lab Status: Preliminary result Updated: 03/25/19 1039 Specimen: Body Fluid from Vertebrae, Thoracic CALCOFLUOR No fungal elements seen Comment: Performed by [facility] [address] [place] [address] Culture, Blood [[id number]] Collected: 03/23/19 2333 Order Status: Completed Lab Status: Final result Updated: 03/28/19 2352 Specimen: Blood Culture No growth after 5 days incubation. Culture, Blood [[id number]] Collected: 03/23/19 2255 Order Status: Completed Lab Status: Final result Updated: 03/28/19 2341 Specimen: Blood Culture No growth after 5 [...] this chart may have been created with GENIAC voice recognition software. Occasi onal wrong-word or [...] capsule by | 180 | 0 | // | | | (PHOSLO) 667 mg | mouth 3 times daily | capsule | | 19 | | | capsule | (with meals). | | | | | + + + +---------+ + + | Cholecalciferol | Take 4,000 Units by | | 0 | //20 | | | 4000 units TABS | [...] the | 33 each | 0 | 04/01/ | | | (MAXIPIME) 1 g in [...] tablet by | 40 | 0 | 0719/20 | | | (ROXICODONE) 5 mg | [...] | | | | | | | ([facility]), Right hip | | | | | [...] vancomycin in | 500 mg IV on M// | 14 each | 0 | 03/31/20 [...] 03/31/2019 5:42 PM PDTPatient left with family, [facility] supplies and i nstructions received before discharge and RX's filled at outpt pharmacy. VSS, ambulating wit h SBA, A&O x4, accepting of discharge. Dialysis completed this AM. Pain controlled with q4 o xy, LD 1400. Home health will f/u tomorrow. AVS reviewed and sent with patient, verbalized u nderstanding. Merry Hess, FURNITURE REPAIR TECHNICIAN - 03/31/2019 11:05 AM PDTSOCIAL WORK PLAN: Home with [facility] NEXT STEPS: 1. Pt to follow up with [facility] 2. [facility] to follow up with pt at or INTERVENTION: SW spoke with [facility], pt has a $2.50 out of pocket cost weekly, pt is agreeable to pay for this. Therefore pt will dc today with [facility]. ROBIN provided [facility] with hard script for IV abx. ROBIN faxed over HH order to [facility], ROBIN faxed over IV vanco script to [facility]. [facility] notified of pt's dc home. notified. [facility] to meet with pt later this afternoon for teach. SW provided pt with 3 gas cards to assist with transportation. No further dc needs identified. SW received call from [facility] clinic that they cannot provide IV Vanco as Vanco h as not been consigned by [facility] that has privileges in [place]. IV Vanco will now be done b y Candie, 5N Engineer Intern faxed over hard script to [facility]. They will have both IV Abx ready and will teach pt shortly. No further dc needs identified. CONTACTS: Yina La: sister India Tilley: sister [place] Medicaid Transportation: [place] Medicaid Transportation fax: [phone] [facility]: [phone] fax: [phone] [facility] [phone] [facility]: [phone] [facility]: [phone] [facility] FAX: [phone] aMichelle bell DO - 03/31/2019 10:12 AM PDT Patient: Estefani Tilley Date of : 1945 Admit Date: 03/24/2019 Date of Service: 03/31/2019 PCP: Francisca Womack PA-C Hospital Day: Hospital Day: 8 Hospital Course: 73-year-old female with history of ESRD on hemodialysis, hypertension, type 2 diabetes, hyp othyroidism, chronic anemia, hyperlipidemia with a history of stroke transferred from [facility] for evaluation of T11-T12 lesion noted on [...] initially had planned to go to SNF [facility] in [place], [place] - of which has accepted her and [...] dialysis patient - has OP clinic in [place] already Macrocytic anemia likely secondary to-likely anemia [...] hoping to arrange home IV antibiotics through [facility]. Awaiting to see if insurance will cover [...] fevers or chills. Objective: Vital Signs 03/29 0700 - 03/30 0659 03/30 07 - 03/31 0659 03/31 07 - 03/31 1013 Most Rec ent Temp [...] - 99 mg/dL Final Comment: Performed by [facility] [address] [place] [address] 03/30/2019 21:14 200 (H) 65 - 99 mg/dL Final Comment: Performed by [facility] [address] [place] [address] 03/30/2019 17:46 111 (H) 65 - 99 mg/dL Final Comment: Performed by [facility] [address] [place] [address] 12/09/2018 18:05 113 (H) 70 - 109 [...] this chart may have been created with GENIAC voice recognition software. Occasi onal wrong-word or sound-alike substitutions may have occurred due to the inherent mckeon itations of voice recognition software. Please read the chart carefully and recognize, using context, where these substitutions have occurred Jesus Wade MD - 03/31/2019 8:26 AM PDT . Infectious Diseases Progress Note Pt. Name/Age/: Estefani Tony Tilley 73 y.o. 1945 Med. Record Number: [id number] Date of admission: 03/24/2019 Patient admitted with [...] Electronically signed by: Jesus Whitney, 03/31/2019 8:26 [facility] Robb Phillips PharmD - 03/31/2019 7:25 AM PDTFormatting of this note might be different from the origi nal. Pharmacy Progress Note VANCOMYCIN PER PHARMACY [...] (H)). Lab Results Component Value Date/Time VANCORANDOM 19.0 03/31/2019 04:12 I/O last 3 completed shifts: In: 0 [P.O.:1810] Out: 0 No intake/output data recorded. Micro/Cultures: BCx - NGTD, BiopsyCx - NGTD Per P&T-approved Vancomycin Protocol Electronically signed by: Robb Wheeler PharmD 03/31/2019 7:25 Randy Yu MD - 03/30/2019 9:45 PM PDT [facility] INPATIENT ROUNDING NOTE Date of Service: 03/30/2019 Rounding Physician: Randy Corrigan MD Patient Name: Estefani Tilley : 1945 Medical Record: [id number] Hospital Summary: Estefani Tilley is a 73 y.o. female with a PMHx of ESRD, HTN, Dm type 2, hypothyroidism, HLd, CVA who is under the care of Dr Muñoz at [facility] who dialyzes MWF admitted with possible osteo [...] bruit and thrill Recent Labs Lab 03/30/19 0503/29/1951803/28/19 0458 WBC 4.43 4.55 4.25 HGB 10.3* 10.2* 9.9* HCT 31.6* 31.8* 30.8* PLT 174 172 171 Recent Labs Lab 03/30/19 0503/29/1919 03/28/19 0458 03/26/19 1144 03/26/19 0411 03/25/19 [...] Trace Corrigan MD, 03/30/2019, 21:45 etNan wilkes, FURNITURE REPAIR TECHNICIAN - 03/30/2019 2:34 PM PDT SOCIAL WORK D/C PLAN:DC home with [facility] providing IV-ABX and [facility] providing picc care and lab draws vs [facility] NEXT STEPS: -SW will need to follow up with CANDIE regarding providing IV-ABX to pt. -SW will need to follow up with [facility] regarding providing picc care and lab draws. -SW will need to follow up with [facility] regarding having pt receive vanco do se while at dialysis center if pt is to go home with IV-ABX -SW will need to follow up with [facility] if pt is unable to go home with IV-ABX rega ridng pt's DC -SW will need to fax SNF orders, scripts and PASRR to [facility] if pt is unable to go home -SW will need to provide gas cards to pt's family for transportation home. INTERVENTION:SW spoke with pt regarding acceptance to [facility]. Pt is now wanting to go home with IV-ABX. SW spoke with [facility]. They go out to [place], [place] and have openings for nursing care. Referral faxed to [facility]. Pt is amenable to using [facility] for IV-ABX. SW spoke with CANDIE martinez who will run pt's be nefits to see if she can DC home with IV-ABX. Pt states that [facility] can provide teach to her son to help administer IV-ABX. SW left message for [facility] to see if they can provide v[facility] dose [facility] on Wednesday, Wednesday and Wednesday if pt is able to go home. Pt states that she does dialysis on Wednesday, Wednesday and Wednesday from 12:00-4:00. SW received phone call from [facility]. They have accepted pt for admission if [...] if pt is going to go to [facility]. ASSESSMENT/CHART REVIEW:73 yr old femalewith a history of ESRD on hemodialysis, hypertens ion, type 2 diabetes, hypothyroidism,chronic anemia,hyperlipidemia, hx of stroke [facility] noted on MRI concerning fo r osteomyelitis. SW met with pt's sister, Yina, and her cousin, Keri, who were waiting in pt's room while s he was in dialysis. SW will need to follow up with pt re: d/c planning. Pt's sister and cousin related that pt mostly lives at Yina's house outside [place], [place], but does not like to be tied down because she enjoys attending [place] festivals and many events. She does at [facility] dialysis weekly. Pt has a vehicle and is very independent. D/C TRANSPORT:Pt can be transported home or to [facility] via family in a private car. They will need gas cards to help pay for transportation. BARRIERS TO D/C:none CONTACTS: Yina La: sister India Tilley: sister [place] Transportation: [place] Medicaid Transportation fax: [phone] [facility]: [phone] fax: [phone] [facility] [phone] [facility]: [phone] [facility]: [phone] [facility] FAX: [phone] Nan Cheney MSW - 03/30/2019 12:57 PM PDTSOCIAL WORK D/C PLAN:[facility]: [facility] NEXT STEPS:Await bed availability INTERVENTION: ROBIN called and left message for Mell at [facility] regarding if they are willing to accept pt and to discuss transportation to and from dialysis. SW also called and left message for [place] Medicaid transportation regarding if they can transp ort pt to and from dialysis upon DC. Pt states that she goes to [facility] dialys is in [place], [place] on Wed, Wed, and Fridays from 12:00-4:00 pm. SW left message with [facility] dialysis regarding if there was any way that they may also be able to help with transportation to and from dialysis while pt is in rehab and to ensure that pt still has her chair time scheduled. [facility] is only open M on, Wednesday and Wednesday. ASSESSMENT/CHART REVIEW:73 yr old femalewith a history of ESRD on hemodialysis, hypertens ion, type 2 diabetes, hypothyroidism,chronic anemia,hyperlipidemia, hx of stroke transfe rred from [facility] evaluation of T11-T12 lesion noted on MRI concerning fo r osteomyelitis. SW met with pt's sister, Yina, and her cousin, Keri, who were waiting in pt's room while s he was in dialysis. SW will need to follow up with pt re: d/c planning. Pt's sister and cousin related that pt mostly lives at Yina's house outside [place], [place], but does not like to be tied down because she enjoys attending [place] festivals and many events. She does at [facility] dialysis weekly. Pt has a vehicle and is very independent. D/C TRANSPORT:tbd BARRIERS TO D/C:none CONTACTS: Yina La: sister India Tilley: sister [place] Transportation[place] Medicaid Transportation fax: [phone] [facility]: [phone] fax: [phone] [facility] [phone] [facility]: [phone] signed by JENNIFER Xavier at 03/30 1:09 PM PDTRafterMichelle DO - 03/30/2019 11:09 AM PDTFormatting of [...] with a history of stroke transferred from [facility] for evaluation of T11-T12 lesion noted on [...] [facility], in [place] regarding possible acceptance. She is improved overall and medic ally ready for discharge. She is a chronic dialysis patient, Nephrology is following for on going dialysis needs. She will need three times weekly dialysis while at SNF as well. SW t o help determine [...] dialysis patient - has OP clinic in [place] already ---> will need SW to help [...] SNF - awaiting to hear back from [facility], in [place], [place] regarding possible acceptance there. Medically ready [...] Signs 03/28 700 - 03/29 0659 03/29 07 - 03/30 0659 03/30 700 - 03/30 [...] Single Lumen 03/24/19 2143 Left Lateral Forearm pgzj-hdp-msruzi daniel ter system 20 gauge;1 1/4 in length 5 days Line Hemodialysis AV [...] - 99 mg/dL Final Comment: Performed by [facility] [address] [place] [address] 03/29/2019 21:09 157 (H) 65 - 99 mg/dL Final Comment: Performed by [facility] [address] [place] [address] 03/29/2019 18:50 91 65 - 99 mg/dL Final Comment: Performed by [facility] [address] [place] [address] 12/09/2018 18:05 113 (H) 70 - 109 [...] this chart may have been created with GENIAC voice recognition software. Occasi onal wrong-word or sound-alike substitutions may have occurred due to the inherent mckeon itations of voice recognition software. Please read the chart carefully and recognize, using context, where these substitutions have occurred esus Whitney MD - 03/30/2019 7:15 AM PDT . Infectious Diseases Progress Note Pt. Name/Age/: Estefani Jimeenz Jarek 73 y.o. 1945 Med. Record Number: [id number] Date of admission: 03/24/2019 Patient admitted with [...] Electronically signed by: Jesus Whitney, 03/30/2019 7:15 [facility] Mary Wade RN - 03/30/2019 6:16 AM [...] Last Bowel Movement: Stool Occurrence: 1(pt reported) (03/27/191845) Active Infusions: dextrose 10% Skin: Skin Integrity: [...] intention has depression wishful of Monitoring Requirements [facility] Suicide Policy [facility] Suicide Risk/Telesitter Screening Utilizing this rating scale, [...] 108/48 Pulse: 74 77 71 Resp: 16 16 Temp: 36.8 C (98.2 F) 36.4 [...] POCGLU 112 (H) 12/08/2018 0650 Merry Hess MSW - 03/29/2019 4:18 PM PDTSOCIAL WORK D/C PLAN:SNF: [facility] NEXT STEPS:Await bed availability INTERVENTION: SW called and spoke with admissions person at [facility], they are still discussing pt's case. They [...] anemia,hyperlipidemia, hx of stroke [facility] lesion noted on MRI concerning fo r osteomyelitis. SW met with pt's sister, Yina, and her cousin, Keri, who were waiting in pt's room while s he was in dialysis. SW will need to follow up with pt re: d/c planning. Pt's sister and cousin related that pt mostly lives at Yina's house outside [place], [place], but does not like to be tied down because she enjoys attending [place] festivals and many events. She does at [facility] dialysis weekly. Pt has a vehicle and is very independent. D/C TRANSPORT:tbd BARRIERS TO D/C:none CONTACTS: Yina La: sister India Tilley: sister [place] Medicaid Transportation: [facility]: [phone] fax: [phone] [facility] [phone] signed by JENNIFER Contreras at 03/29/2019 4:20 PM PDTHsu, Randy Nunez MD - 03/29/2019 12:32 PM PDT [facility] INPATIENT ROUNDING NOTE Date of Service: 03/29/2019 Rounding Physician: Randy Corrigan MD Patient Name: Estefani Tilley : 1945 Medical Record: [id number] Hospital Summary: Estefani Tilley is a 73 y.o. female with a PMHx of ESRD, HTN, Dm type 2, hypothyroidism, HLd, CVA who is under the care of Dr Muñoz at [facility] who dialyzes MWF admitted with possible osteo [...] 172 171 179 Recent Labs Lab 03/29/19 0519 03/28/19 0458 03/26/19 1144 03/26/19 [...] by: Trace Corrigan MD, 03/29/2019, 12:32 after, Michelledaily Taylor, DO - 03/29/2019 12:12 PM PDT Patient: Estefani Tilley Date of : 1945 Admit Date: 03/24/2019 Date of Service: 03/29/2019 PCP: Francisca Womack PA-C Hospital Day: Hospital Day: 6 Hospital Course: 73-year-old female with history of ESRD on hemodialysis, hypertension, type 2 diabetes, hyp othyroidism, chronic anemia, hyperlipidemia with a history of stroke transferred from [facility] for evaluation of T11-T12 lesion noted on [...] arranging placement, awaiting to hear from [facility] [place] regarding possible acceptance. May be able to d/c medically over the next 24-48 hours, pending ID clearance. She is a chronic dialysis patient, Nephrology is following for ongoing dialysis needs. She will need three times weekly dialysis while at [facility] as well. SW to help determine transportation [...] dialysis patient - has OP clinic in [place] already ---> will need SW to help [...] SNF - awaiting to hear back from [facility], in [place], [place] regarding possible acceptance there. Could possibly [...] fevers or chills. Objective: Vital Signs 03/27 0700 - 03/28 0659 03/28 07 - 03/29 0659 03/29 07 - 03/29 1213 Most Rec ent Temp (C) 35.8 - 37.4 35.9 - 36.4 36.2 - 36.4 36.2 (97.2) Pulse 55 - 78 60 - 73 64 - 72 72 Resp - 18 16 16 16 BP 129/53 [...] Single Lumen 03/24/19 2143 Left Lateral Forearm ebfy-ovu-nbmxjr daniel ter system 20 gauge;1 /4 in length 4 days Line Hemodialysis AV [...] - 99 mg/dL Final Comment: Performed by [facility] [address] [place] [address] 03/28/2019 21:06 144 (H) 65 - 99 mg/dL Final Comment: Performed by [facility] [address] [place] [address] 03/28/2019 11:22 119 (H) 65 - 99 mg/dL Final Comment: Performed by [facility] [address] [place] [address] 12/09/2018 18:05 113 (H) 70 - 109 [...] this chart may have been created with GENIAC voice recognition software. Occasi onal wrong-word or sound-alike substitutions may have occurred due to the inherent mckeon itations of voice recognition software. Please read the chart carefully and recognize, using context, where these substitutions have occurred hoiZari P harmD - 03/29/2019 9:36 AM PDT [...] (H)). Lab Results Component Value Date/Time SHANE 18.6 03/29/2019 05:19 I/O last 3 completed shifts: In: 720 [P.O.:720] Out: - No intake/output data recorded. Micro/Cultures: BCx - NGTD, BiopsyCx - NGTD Per P&T-approved Vancomycin Protocol Electronically signed by: Zari Mitchell PharmD 03/29/2019 9:36 rgJesus mcdonald MD - 03/29/2019 7:35 A M PDT Infectious Diseases Progress Note Pt. Name/Age/: Estefani Jimenez Jarek 73 y.o. 1945 Med. Record Number: [id number] Date of admission: 03/24/2019 Patient admitted with [...] Electronically signed by: Jesus Whitney, 03/29/2019 7:35 [facility] zech, Carolina Restrepo RN - 03/28/2019 7:08 PM [id number] - Report called to Sanjuanita GONZALEZ. Pt's belongings . I pad and I phone w/ chargers as well as pt's purse, and shoes, and shirt and pants all sent with her to [address] [place] [address]. Pt had been sitting up eating dinner. [...] for time spent with her. Noti fied [address] [place] [address] RN of pt's recent loss. Transferred at 1900 via wc with all her belongings. Nelda ctronically signed by: Carolina Jessica RN 03/28/2019 19:23 Michelle Cowan D O - 03/28/2019 3:55 PM PDT Patient: Estefani Tilley Date of : 1945 Admit Date: 03/24/2019 Date of Service: 03/28/2019 PCP: Francisca Womack PA-C Hospital Day: Hospital Day: 5 Hospital Course: 73-year-old female with history of ESRD on hemodialysis, hypertension, type 2 diabetes, hyp othyroidism, chronic anemia, hyperlipidemia with a history of stroke transferred from [facility] [place] for evaluation of T11-T12 lesion noted on [...] Signs 03/26 700 - 03/27 0659 03/27 700 - 03/28 0659 03/28 700 - 03/28 1555 Most Rec ent Temp [...] 3 completed shifts: In: 680 [P.O.:680] Out: 1999 Wt Readings from Last 3 Encounters: 03/24/19 62 kg (136 lb 11 oz) 03/23/19 66.7 kg (147 lb) 02/03/19 70.8 kg (156 lb) Active Lines CVC Line Tunneled Central Line - Double Lumen 03/28/19 1451 internal jugular vein, right less than 1 day PIV Line Peripheral IV Line - Single Lumen 03/24/19 2143 Left Lateral Forearm zjpg-fjh-dbvbai daniel ter system 20 gauge;1 / in length 3 days Line Hemodialysis AV [...] - 99 mg/dL Final Comment: Performed by [place] [address] [facility] [place] [address] 03/28/2019 07:09 75 65 - 99 mg/dL Final Comment: Performed by [place] [address] [facility] [place] [address] 03/27/2019 20:38 109 (H) 65 - 99 mg/dL Final Comment: Performed by [place] [address] [facility] [place] [address] 12/09/2018 18:05 113 (H) 70 - 109 [...] this chart may have been created with GENIAC voice recognition software. Occasi onal wrong-word or sound-alike substitutions may have occurred due to the inherent mckeon itations of voice recognition software. Please read the chart carefully and recognize, using context, where these substitutions have occurred Cordell Mcgarry LICSW - 03/28/2019 2:57 PM PDTSOCIAL WORK D/C PLAN: SNF: [facility] NEXT STEPS: Await bed availability INTERVENTION: On-going dc planning. Rec'd update from [facility]. They confirm they have r ec'd clinical notes and are currently reviewing. SW will follow. ASSESSMENT/CHART REVIEW:73 yr old femalewith a history of ESRD on hemodialysis, hypertens ion, type 2 diabetes, hypothyroidism,chronic anemia,hyperlipidemia, hx of stroke [facility] [place] [place] noted on MRI concerning fo r osteomyelitis. SW met with pt's sister, Yina, and her cousin, Keri, who were waiting in pt's room while s he was in dialysis. SW will need to follow up with pt re: d/c planning. Pt's sister and co in related that pt mostly lives at Yina's house outside [place], [place], but does not like to be tied down because she enjoys attending [place] festivals and many events. She does atten d dialysis weekly. Pt has a vehicle and is very independent. D/C TRANSPORT: tbd BARRIERS TO D/C: none CONTACTS: Yina La: sister India Tilley: sister [facility]: [phone] fax: [phone] [facility] [phone] Mario Alberto Gonzales MD - 03/28/2019 7:34 AM PDTFormatting of this note might be different from the maynor rollins Infectious Diseases Progress Note Pt. Name/Age/: Estefani Tilley 73 y.o. 1945 Med. Record Number: [id number] Date of admission: 03/24/2019 Patient admitted with [...] Electronically signed by: Carlos Jansen, 03/28/2019 7:34 [facility] Katey Solis MD - 03/27/2019 8:58 PM PDT Patient: Estefani Tilley Date of : 1945 Admit Date: 03/24/2019 Date of Service: 03/27/2019 PCP: Francisca Womack PA-C Hospital Day: Hospital Day: 4 Hospital Course: 73-year-old female with history of ESRD on hemodialysis, hypertension, type 2 diabetes, hyp othyroidism, chronic anemia, hyperlipidemia with a history of stroke transferred from [facility] [place] for evaluation of T11-T12 lesion noted on MRI concerning for osteomyeliti s. Infectious disease consulted. Status post aspiration from her thoracic spine, Gram stain negative, cultures pending. Rosemary ent started on empiric vancomycin and cefepime. Will need 6 weeks of IV antibiotics. Discussed with nephrology, recommend placement of Tillman catheter instead of PICC line for joint terminal attack controller IV antibiotics. Nephrology following for maintenance hemodialysis. SW following for SNF. Assessment and Plan: Assessment of active problems addressed today: Osteomyelitis/discitis of T11, T12 vertebra Afebrile, improved WBC count, improved CRP Status post aspiration from her thoracic spine, Gram stain negative, cultures pending- gisela Infectious disease help appreciated Continue vancomycin and cefepime Echocardiogram negative for any endocarditis. Patient will need IV antibiotics for 6 weeks. Continue probiotic Discussed with nephrology, recommend placement of Tillman catheter instead of PICC line for fpc IV antibiotics. Pain management -trial of lidocaine [...] Single Lumen 03/24/19 2143 Left Lateral Forearm objr-gyz-bhjajp daniel ter system 20 gauge;1 1/4 in length 2 days Line Hemodialysis AV [...] - 99 mg/dL Final Comment: Performed by [facility] [address] [place] [address] 03/27/2019 13:58 82 65 - 99 mg/dL Final Comment: Performed by [facility] [address] [facility] [place] [address] 03/27/2019 06:39 83 65 - 99 mg/dL Final Comment: Performed by [facility] [address] [facility] [place] [address] 12/09/2018 18:05 113 (H) 70 - 109 [...] this chart may have been created with GENIAC voice recognition software. Occasi onal wrong-word or sound-alike substitutions may have occurred due to the inherent mckeon itations of voice recognition software. Please read the chart carefully and recognize, using context, where these substitutions have occurred Darlin Mcgarry LICSW - 03/27/2019 3:17 PM PDTSOCIAL WORK D/C PLAN: SNF: [facility] NEXT STEPS: Await bed availability INTERVENTION: Rec'd call from Emili at [facility]. She states the contracted f acility near pt's home is [facility]. Spoke with pt and with sister India. Referral and (-) Pasrr sent to [facility]. Copy of Pasrr placed in light chart with request to file into jos rds. SW will follow. ASSESSMENT/CHART REVIEW:73 yr old femalewith a history of ESRD on hemodialysis, hypertens ion, type 2 diabetes, hypothyroidism,chronic anemia,hyperlipidemia, hx of stroke [facility] [place] lesion noted on MRI concerning fo r osteomyelitis. SW met with pt's sister, Yina, and her cousin, Keri, who were waiting in pt's room while s he was in dialysis. SW will need to follow up with pt re: d/c planning. Pt's sister and co usin related that pt mostly lives at Yina's house outside [place], [place], but does not like to be tied down because she enjoys attending [place] festivals and many events. She does atten d dialysis weekly. Pt has a vehicle and is very independent. D/C TRANSPORT: tbd BARRIERS TO D/C: none CONTACTS: Yina La: sister India Tilley: sister [facility]: [phone] fax: [phone] [facility] [phone] Gregg Mcgarry [facility] - 03/27/2019 2:17 PM PDTFormatting of this note might be different from jerald posadas original. SOCIAL WORK D/C PLAN: SNF NEXT STEPS: SW to follow up with pt regarding SNF preference INTERVENTION: On-going dc planning, chart reviewed and met with pt. Discussed need of joint terminal attack controller IV abx, Discussed options. Provided list of [...] pt mostly lives at Yina's house outside [place], [place], but does not like to be tied down because she enjoys attending [place] festivals and many events. She does atten d dialysis weekly. Pt has a vehicle and is very independent. ASSESSMENT/CHART REVIEW:73 yr old femalewith a history of ESRD on hemodialysis, hypertens ion, type 2 diabetes, hypothyroidism,chronic anemia,hyperlipidemia, hx of stroke [facility] [place] [place] lesion noted on MRI concerning fo r osteomyelitis. D/C TRANSPORT: tbd BARRIERS TO D/C: none CONTACTS: Yina La Sister [phone] India Tilley Sister [phone] Irish Cadet, Ui Lead Developer - 03/27/2019 1:33 PM PDTFormatting of this note might be different fr om the original. Pharmacy Progress Note VANCOMYCIN PER PHARMACY PROTOCOL: Day 4 Estefani Tony Tilley is a 73 y.o. female receiving [...] mg/dL (H)). Lab Results Component Value Date/Time [facility] 17.7 03/27/2019 05:12 I/O last 3 completed shifts: In: 360 [P.O.:360] Out: 1 [Urine:1] I/O this shift: In: - Out: 2000 Micro/Cultures: BCx - NGTD, BiopsyCx - NGTD Per P&T-approved Vancomycin Protocol Electronically signed by: Aimee Carroll, Ui Lead Developer 03/27/2019 13:33Electronically si gned by Ray Joel, PharmD at 03/27/2019 2:04 PM PDT Associated attestation - Ray Joel, PharmD - 03/27/2019 2:04 PM PDTI reviewed and agr ee with the assessment and plan. Ray Joel, PharmD 03/27/2019 14:04 Randy Corrigan MD - 03/27/2019 10:52 AM PDT [facility] INPATIENT ROUNDING NOTE Date of Service: 03/27/2019 Rounding Physician: Randy Corrigan MD Patient Name: Estefani Tilley : 1945 Medical Record: [id number] Hospital Summary: Estefani Tilley is a 73 y.o. female with a PMHx of ESRD, HTN, Dm type 2, hypothyroidism, HLd, CVA who is under the care of Dr Muñoz at [facility] who dialyzes MWF admitted with possible osteo [...] Min: 91 % Max: 97 % 03/26 0701 - 03/27 0700 In: 360 [P.O.:360] Out: 1 [Urine:1] AOx3 JVp not elevated Chest is clear CVS RRR Abdomen Nt Ext no edema LUE AVF with good bruit and thrill Recent Labs Lab 03/26/19 0411 03/25/19 0918 03/24/19 0518 WBC 4.57 5.34 5.46 HGB 10.2* 10.2* 9.9* HCT 32.1* 31.5* 31.3* PLT 179 192 177 Recent Labs Lab 03/26/19 1144 03/26/19 0411 03/25/19 0918 0718 03/23/19 1903 NA -- 133* 135 141 [...] signed by: Trace Corrigan MD, 03/27/2019, 10:52 Carlos Gonzales MD - 03/27/2019 7:10 AM PDT Infectious Diseases Progress Note Pt. Name/Age/: Estefanicharlie Tilley 73 y.o. 1945 Med. Record Number: [id number] Date of admission: 03/24/2019 Patient admitted with [...] Electronically signed by: Carlos Jansen, 03/27/2019 7:10 [facility] Katey Solis MD - 03/26/2019 5:40 PM PDT Patient: Estefani Tilley Date of : 1945 Admit Date: 03/24/2019 Date of Service: 03/26/2019 PCP: Francisca Womack PA-C Hospital Day: Hospital Day: 3 Hospital Course: 73-year-old female with history of ESRD on hemodialysis, hypertension, type 2 diabetes, hyp othyroidism, chronic anemia, hyperlipidemia with a history of stroke transferred from [facility] [place] for evaluation of T11-T12 lesion noted on [...] Single Lumen 03/24/19 2143 Left Lateral Forearm rxpe-iym-qgwlnk daniel ter system 20 gauge;1 1/4 in length 1 day Line Hemodialysis AV [...] - 99 mg/dL Final Comment: Performed by [facility] [address] [facility] [place] [address] 03/26/2019 06:49 116 (H) 65 - 99 mg/dL Final Comment: Performed by [facility] [address] [facility] [place] [address] 03/25/2019 20:37 110 (H) 65 - 99 mg/dL Final Comment: Performed by [facility] [address] [place] [address] 12/09/2018 18:05 113 (H) 70 - 109 [...] this chart may have been created with GENIAC voice recognition software. Occasi onal wrong-word or sound-alike substitutions may have occurred due to the inherent mckeon itations of voice recognition software. Please read the chart carefully and recognize, using context, where these substitutions have occurred Jose Gamez, Pharmacy R esident - 03/26/2019 10:52 AM PDTFormatting of this note might be different from the maynor rollins Pharmacy Progress Note VANCOMYCIN PER PHARMACY PROTOCOL: [...] (H)). Lab Results Component Value Date/Time [facility] 20.2 03/26/2019 04:11 I/O last 3 completed shifts: In: 70 [I.V.:15; IV Piggyback:55] Out: - I/O this shift: In: - Out: 1 [Urine:1] Micro/Cultures: BCx - NGTD, BiopsyCx - NGTD Per P&T-approved Vancomycin Protocol Electronically signed by: Jose Menard, Ui Lead Developer 03/26/2019 10:52 [facility], Randy Nunez MD - 03/26/2019 1 0:38 AM PDT [facility] INPATIENT ROUNDING NOTE Date of Service: 03/26/2019 Rounding Physician: Randy Corrigan MD Patient Name: Estefani Tilley : 1945 Medical Record: [id number] Hospital Summary: Estefani Tilley is a 73 y.o. female with a PMHx of ESRD, HTN, Dm type 2, hypothyroidism, HLd, CVA who is under the care of Dr Muñoz at [facility] who dialyzes MWF admitted with possible osteo disccitis t11/t12 ASSESSMENT AND PLAN 1. ESRD/HD dependent Access is LUE AVF working well No indications for HD today Usually dialyzes MWF at [facility] Hd tommorow 2. Anemia Hg at goal [...] Min: 92 % Max: 99 % 03/25 0701 - 03/26 0700 In: 70 [I.V.:15] Out: - AOx3 JVp not elevated Chest is clear CVS RRR Abdomen Nt Ext no edema LUE AVF with good bruit and thrill Recent Labs Lab 03/26/19 0411 03/25/19 0918 03/24/19 0518 WBC 4.57 5.34 5.46 HGB 10.2* 10.2* 9.9* HCT 32.1* 31.5* 31.3* PLT 179 192 177 Recent Labs Lab 03/26/19 0411 03/25/19 0918 03/24/19 0518 03/23/19 1903 NA 133* 135 141 137 K 4.3 5.0 4.4 4.2 CL 99 101 105 101 CO2 27 28 27 30 BUN 19 14 19 18 CREA 3.82* 3.01* 4.02* 3.78* CALCIUM [...] RN taking over care. 9:5 6 AM Carlos Gonzales MD - 03/26/2019 8:03 AM PDTFormatting of this note might be differ ent from the original. Infectious Diseases Progress Note Pt. Name/Age/: Estefani Tilley 73 y.o. 1945 Med. Record Number: [id number] Date of admission: 03/24/2019 Patient admitted with [...] Electronically signed by: Carlos Jansen, 03/26/2019 8:03 [facility] Katey Solis MD - 03/25/2019 3:50 PM PDT Patient: Estefani Tilley Date of : 1945 Admit Date: 03/24/2019 Date of Service: 03/25/2019 PCP: Francisca Womack PA-C Hospital Day: Hospital Day: 2 Hospital Course: 73-year-old female with history of ESRD on hemodialysis, hypertension, type 2 diabetes, hyp othyroidism, chronic anemia, hyperlipidemia with a history of stroke transferred from [facility] for evaluation of T11-T12 lesion noted on [...] Alert and Oriented. Objective: Vital Signs 03/23 0700 - 03/24 0659 03/24 07 - 03/25 [...] Peripheral IV Line - Single Lumen 03/24/19 7868 Left Lateral Forearm pstt-kki-yzhwfx daniel ter system 20 gauge;1 1/4 in [...] - 99 mg/dL Final Comment: Performed by [facility] [address] [place] [address] 03/25/2019 06:52 107 (H) 65 - 99 mg/dL Final Comment: Performed by [facility] [address] [place] [address] 03/24/2019 20:11 112 (H) 65 - 99 mg/dL Final Comment: Performed by [facility] [address] [place] [address] 12/09/2018 18:05 113 (H) 70 - 109 [...] this chart may have been created with GENIAC voice recognition software. Occasi onal wrong-word or sound-alike substitutions may have occurred due to the inherent mckeon itations of voice recognition software. Please read the chart carefully and recognize, using context, where these substitutions have occurred su, Randy Nunez MD - 0 03/25/2019 1:47 PM PDT [facility] INPATIENT ROUNDING NOTE Date of Service: 03/25/2019 Rounding Physician: Randy Corrigan MD Patient Name: Estefani Tilley : 1945 Medical Record: [id number] Hospital Summary: Estefani Tilley is a 73 y.o. female with a PMHx of ESRD, HTN, Dm type 2, hypothyroidism, HLd, CVA who is under the care of Dr Muñoz at [facility] who dialyzes MWF admitted with possible osteo disccitis t11/t12 ASSESSMENT AND PLAN 1. ESRD/HD dependent Access is LUE AVF working well No indications for HD today Usually dialyzes MWF at [facility] She is below her EDW an EDW [...] Min: 93 % Max: 100 % 03/24 0701 - 03/25 0700 In: 250 [I.V.:250] Out: 1428 AOx3 JVp not elevated Chest is clear CVS RRR Abdomen Nt Ext no edema LUE AVF with good bruit and thrill Recent Labs Lab 03/25/19 0918 03/24/19 0518 03/23/19 1835 WBC 5.34 5.46 5.8 HGB 10.2* 9.9* 11.0* HCT 31.5* 31.3* 34.7 PLT 192 177 220 Recent Labs Lab 03/25/19 0918 03/24/19 0518 03/23/19 1903 NA 135 141 137 [...] signed by: Trace Corrigan MD, 03/25/2019, 13:47 etNan wilkes FURNITURE REPAIR TECHNICIAN - 03/25/2019 10:49 AM PDT SOCIAL WORK [...] pt mostly lives at Yina's house outside [place], [place], but does not like to be tied down because she enjoys attending [place] festivals and many events. She does atten d dialysis weekly. Pt has a vehicle and is very independent. ASSESSMENT/CHART REVIEW:73 yr old femalewith a history of ESRD on hemodialysis, hypertens ion, type 2 diabetes, hypothyroidism,chronic anemia,hyperlipidemia, hx of stroke [facility]T12 lesion noted on MRI concerning fo r osteomyelitis. D/C TRANSPORT: tbd BARRIERS TO D/C: none CONTACTS: Yina La Sister [phone] India Tilley Sister [phone] Carlos Gonzales M D - 03/25/2019 8:34 AM PDT Infectious Diseases Progress Note Pt. Name/Age/: Estefani Tilley 73 y.o. 1945 Med. Record Number: [id number] Date of admission: 03/24/2019 Patient admitted with [...] Electronically signed by: Carlos Jansen, 03/25/2019 8:34 [facility] Jose Gamez, Ui Lead Developer - 03/24/2019 10:46 PM PDTFormatting of this note might be different from the origin ks. Pharmacy Progress Note VANCOMYCIN PER PHARMACY PROTOCOL: [...] Vancomycin Protocol Electronically signed by: Jose Menard, Ui Lead Developer 03/24/2019 22:46 ladys [place] MSW - 9 [...] pt mostly lives at Yina's house outside [place], [place], but do es not like to be tied down because she enjoys attending [place] festivals and many events. She does attend dialysis weekly. Pt has a vehicle and is very independent. ASSESSMENT/CHART REVIEW:73 yr old female with a history of ESRD on hemodialysis, hypertensi on, type 2 diabetes, hypothyroidism, chronic anemia, hyperlipidemia, hx of stroke transferre d from [facility] for evaluation of T11-T12 lesion noted on MRI concerning for ost eomyelitis. D/C TRANSPORT: tbd BARRIERS TO D/C: none CONTACTS: Yina La Sister [phone] India Tilley Sister [phone] atey Hill MD - 03/24/2019 3:53 PM PDTPatient seen and examined. Chart reviewed. Briefly, 73-year-old female with history of ESRD on hemodialysis, hypertension, type 2 diab etes, hypothyroidism, chronic anemia, hyperlipidemia with a history of stroke transferred fr [facility] [place] for evaluation of T11-T12 lesion noted on MRI concerning for ost eomyelitis. Infectious disease consulted. Patient plan for biopsy of the back lesions toapril gallardo S: Patient complaining of back pain, no [...] not have any p raza, consider antidepressants. salvage worker consulted for concerns for housing concerns per Continue care as outlined in the history and physical note. Plan of care discussed in detail with the patient. Dalia García RN - 0 03/24/2019 1:21 PM PDTPt screened positive on depression/suicide screening. Pt states she h as wished she was in the last month, but has no plans and is not suicidal. MD Hill in formed. Pt also expressed concern over housing. ordered social work consult. Will cont inue to monitor pt. Fiona Garcia ma, PharmD - 03/24/2019 2:49 AM PDT Pharmacy Progress Note VANCOMYCIN PER PHARMACY PROTOCOL: Day 1 Estefani Tilley is a 73 y.o. 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 Assessment/Plan: 1. Vancomycin 1250 mg IV once given 03/23 @ 1925 at [facility]. 2. Target Trough: 15-20 mcg/ml 3. ESRD on HD. Outpatient HD schedule MW. 4. Vancomycin Random as ordered with AM [...] 3.78 mg/dL (H)). No results found for: VANCOTROUGH, VANCORANDOM No intake/output data recorded. No intake/output data recorded. Micro/Cultures: Microbiology Results (72 hrs) Procedure Component Value Units Date/Time Culture, Blood [[id number]] Collected: 03/23/192332 Order Status: Sent Lab Status: In process Updated: 03/23/192348 Specimen: Blood Culture, Blood [[id number]] Collected: 03/23/192254 Order Status: Sent Lab Status: [...] + +--------+ + + + | CULTURE, AFB SMEAR | Routin | 03/24/2019 | | Results for this | | | e | 3:14 PM | | procedure are in the | | | | PDT | | results section. | + +--------+ + + + | DI: CT BIOPSY | | 03/24/2019 | fluid | | | | | 1:50 PM | | | | | | [...] [facility] | | | POC | [facility] [address], | | SACRED | | | | [place] [address] | | HEART | | | |Performed by [facility] [address], [place], [place] | | MEDICAL | | | [...] SACRED | [address] | [place], [place] | | | [facility] [...] | PROVID[facility] | | | POC | [facility] [address], | | SACRED | | | | [place] [address] | | HEART | | | |Performed by [facility] [address], [place] [address] | | MEDICAL | | | | [...] + + | [facility] | [address] | [place] [address] | | | [facility] | | | | | YANY [...] | | LABORATORY | | | | [facility] [address], | | [place] | | | | [place] [address] | | | | + + + + + + + + | Specimen | + + | Blood specimen | | (specimen) | + + + + + + + | Performing | Address | City/State/Zipcode | Phone Number | | Organization | | | | + + + + + | [facility] | [address] | [place] [address] | | | [facility] | | | | | LABORATORY [...] CENTER | | | | | | [place] | | | | | | [place] | | + + + +------- ------+ [...] ENCE | | | Immature | by [facility] [address], | K/uL | SACRED | | | Granulocyte | [place] [address] | | HEART | | | s |Performed by [facility] [address], [place] [address] | | MEDICA L | | | [...] + + | [facility] | [address] | [place] [address] | | | [facility] | | | | | LABORATORY [...] by | | | | | | [facility] [address], | | | | | | [place] [address] | | | | + + + + + + + + | Specimen | + + | Blood specimen | | (specimen) | + + + + + + + | Performing | Address | City/State/Zipcode | Phone Number | | Organization | | | | + + + + + | [facility] | [address] | [place] [address] | | | [facility] | | | | | LABORATORY [...] | | | POC | Performed by [facility] [address] | | SACRED | | | | [address] [place] | | HEART | | | | [address] | | MEDICAL | | | | [...] + + + + | [facility] | [address] | [place] [address] | | | [facility] | | | | | LABORATORY [...] | | | POC | Performed by [facility] [address] | | SACRED | | | [address], [place] | | HEART | | | | [address] | | MEDICAL | | | | [...] + + | [facility] | [address] | [place] [address] | | | [facility] | | | | | LABORATORY [...] | | | POC | Performed by [facility] [address] | | SACRED | | | | [address] [place] | | HEART | | | | [address] | | MEDICAL | | | | [...] + + + + + | [facility] | [address] | [place] [address] | | | [facility] | | | | | LABORATORY [...] | | | POC | Performed by [facility] [address] | | SACRED | | | | [address], [place] | | HEART | | | | [address] | | MEDICAL | | | | [...] + + | [facility] | [address] | [place] [address] | | | [facility] | | | | | LABORATORY [...] PROVIDE NCE | | | | by [facility] [address], | | SACRED | | | | [place] [address] | | HEART | | | |Performed by [facility] [address], [place] [address] | | MEDICAL | | | | [...] + + | [facility] | [address] | [place] [address] | | | [facility] | | | | | LABORATORY [...] LUIS CE | | | | by [facility] [address], | | SACRED | | | | [place] [address] | | HEART | | | |Performed by [facility] [address], [place] [address] | | MEDICAL | | | | [...] + + | [facility] | [address] [address] | [place] [address] | | | [facility] | [...] | | LABORATORY | | | | [facility] [address], | | [place] | | | | [place] [address] | | | | + + + + + + + + | Specimen | + + | Blood specimen | | (specimen) | + + + + + + + | Performing | Address | City/State/Zipcode | Phone Number | | Organization | | | | + + + + + | BETH LIZ | [address] | [place] [address] | | | [facility] | | | | | LABORATORY [...] ENCE | | | Counted | by [place] [address], | | SACRED | | | | [place] [address] | | HEART | | | |Performed by [facility] [address], [place] [address] | | MEDICA L | | | [...] [address] | [place] [address] | | | [facility] | | | | | LABORATORY [...] (H)Comment: | 65 - 99 mg/dL | BETH | | | POC | Performed by [facility] [address] | | SACRED | | | | [address], [place] | | HEART | | | | [address] | | MEDICAL | | | | [...] | + + + + + | [facility] | [address] | [place] [address] | | | [facility] | | | | [...] | [facility] | | | POC | [facility] [address], | | SACRED | | | | [place] [address] | | HEART | | | |Performed by [facility] [address], [place] [address] | | MEDICAL | | | | [...] + + | JIMRENUKA LIZ | [address] | [place] [address] | | | [facility] | | | | | LABORATORY [...] | | | POC | Performed by [facility] [address] | | SACRED | | | | [address] [place] | | HEART | | | | [address] | | MEDICAL | | | | [...] + + | [facility] | [address] | [place] | | | [facility] [...] | [facility] | | | POC | [facility] [address], | | SACRED | | | | [place] | | HEART | | | |Performed by [facility] [address], [place] | | MEDICAL | | | [...] + + | BETH LIZ | [address] | [place] [address] | | | [facility] | | | | | LABORATORY [...] by | | | | | | [facility] [address], | | | | | | [place] [address] | | | | + + + + + + + + | Specimen | + + | Blood specimen | | (specimen) | + + + + + + + | Performing | Address | City/State/Zipcode | Phone Number | | Organization | | | | + + + + + | BETH LIZ | [address] | [place] [address] | | | [facility] | | | | | LABORATORY [...] ENCE | | | Counted | by [place] [address], | | SACRED | | | | [place] [address] | | HEART | | | |Performed by [facility] [address], [place] [address] | | MEDICA L | | | [...] + | JIMJOSE ADora LIZ | [address] | [place] [address] | | | [facility] | | | | | LABORATORY [...] PROVIDEN CE | | | | by [facility] [address], | | SACRED | | | | [place] | | HEART | | | |Performed by [facility] [address], [place] | | MEDICAL | | | [...] + | [facility] | [address] | [place], [place] | | | [facility] [...] | | LABORATORY | | | | [facility] [address], | | CERNER | | | | [place] [address] | | | | + + + + + + + + | Specimen | + + | Blood specimen | | (specimen) | + + + + + + + | Performing | Address | City/State/Zipcode | Phone Number | | Organization | | | | + + + + + | BETH LIZ | [address] | [place] [address] | | | [facility] | | | | | YANY [...] (H)Comment: | 65 - 99 mg/dL | BETH | | | POC | Performed by [facility] [address] | | SACREVANS | | | | [address], [place] | | HEART | | | | [address] | | MEDICAL | | | | [...] + + + + | [facility] | [address] | [place] [address] | | | [facility] | | | | | YANY DENNISON [...] + + | Performing | Address | City/State/[facility] | Phone Number | | Organization | [...] | | | POC | Performed by [facility] [address] | | SACRED | | | | [address] [place] | | HEART | | | | [address] | | MEDICAL | | | | [...] [address]. | [place] | | | [facility] | | | | | LABORATORY [...] | PROVIDENCE | | | POC | [facility] [address], | | SACRED | | | | [place] | | HEART | | | |Performed by [facility] [address], [place] [address] | | MEDICAL | | | | [...] + + | BETH LIZ | [address] | [place] [address] | | | [facility] | [...] | 14 (L)Comment: eGFR<60 | >=90 | [facility] | | | GFR | consistent with impaired | mL/min/1.73m2 | SACRED | | | | kidney function.For | | HEART | | | | Americans, | | MEDICAL | | | | multiply the calculated | | CENTER | | | | GFR by 1.210Performed by | | LABORATORY | | | | [facility] [address], | | CERNER | | | | [place] [address] | | | | + + + + + + + + | Specimen | + + | Blood specimen | | (specimen) | + + + + + + + | Performing | Address | City/State/Zipcode | Phone Number | | Organization | | | | + + + + + | BETH LIZ | [address] | [place] [address] | | | [facility] | [...] PROVIDE NCE | | | | by [facility] [address], | | SACRED | | | | [place] [address] | | HEART | | | |Performed by [facility] [address], [place] [address] | | MEDICAL | | | | [...] [address] | [place] [address] | | | [facility] | | | | | LABORATORY [...] | | | POC | Performed by [facility] [address] | | SACRED | | | | [address], [place] | | HEART | | | | [address] | | MEDICAL | | | | [...] + | JIMJOSE ADora AGUSTO | [address] | [place] [address] | | | [facility] | | | | | YANY [...] | | | POC | Performed by [facility] [address] | | SACRED | | | | [address] [place] | | HEART | | | | [address] | | MEDICAL | | | | [...] [address] | [place] [address] | | | [facility] | | | | | LABORATORY [...] by | 65 - 99 mg/dL | BETH | | | POC | [facility] [address], | | [place] | | | | [place] [address] | | HEART | | | |Performed by [facility] [address], [place] [address] | | MEDICAL | | | | [...] + + | BETH LIZ | [address] | [place], [place] | | | [facility] [...] | [facility] | | | POC | [facility] [address], | | SACRED | | | | [place] [address] | | HEART | | | |Performed by [facility] [address], [place] [address] | | MEDICAL | | | | [...] + | JIMJOSE ADora LIZ | [address] | [place] [address] | | | [facility] | | | | | LABORATORY [...] by | | | | | | [facility] [address], | | | | | | [place] [address] | | | | + + + + + + + + | Specimen | + + | Blood specimen | | (specimen) | + + + + + + + | Performing | Address | City/State/Zipcode | Phone Number | | Organization | | | | + + + + + | [facility] | [address] | [place] [address] | | | [facility] | | | | | LABORATORY [...] | | | POC | Performed by [facility] [address] | | SACRED | | | | [address], [place] | | HEART | | | | [address] | | MEDICAL | | | | [...] + + | BETH LIZ | [address] | [place] [address] | | | [facility] | | | | | LABORATORY [...] | | | POC | Performed by [facility] [address] | | SACRED | | | | [address] [place] | | HEART | | | | [address] | | MEDICAL | | | | [...] + + + + | [facility] | [address] | [place] [address] | | | [facility] | | | | | LABORATORY [...] | | | POC | Performed by [facility] [address] | | SACRED | | | | [address], [place] | | HEART | | | | [address] | | MEDICAL | | | | [...] + + | BETH LIZ | [address] | [place] [address] | | | [facility] | [...] (H)Comment: | 2.6 - 4.4 mg/dL | [facility] | | | | Performed by [facility] [address] | | SACRED | | | | [address] [place] | | HEART | | | | [address] | | MEDICAL | | | | [...] + + + + | [facility] | [address] | [place] [address] | | | [facility] | | | | | LABORATORY [...] | | | POC | Performed by [facility] [address] | | SACRED | | | | [address], [place] | | HEART | | | | [address] | | MEDICAL | | | | [...] + + | BETH LIZ | [address] | [place] [address] | | | [facility] | | | | [...] by | | | | | | [facility] [address], | | | | | | [place] [address] | | | | + + + + + + + + | Specimen | + + | Blood specimen | | (specimen) | + + + + + + + | Performing | Address | City/State/Zipcode | Phone Number | | Organization | | | | + + + + + | JIMRENUKA LIZ | [address] | [place] [address] | | | [facility] | | | | | LABORATORY [...] | | LABORATORY | | | | [facility] [address] | | [place] | | | | [place] [address] | | | | + + + + + + + + | Specimen | + + | Blood specimen | | (specimen) | + + + + + + + | Performing | Address | City/State/Zipcode | Phone Number | | Organization | | | | + + + + + | BETH LIZ | [address] | [place] [address] | | | [facility] | | | | | YANY [...] PROVIDE NCE | | | | by [facility] [address], | | SACRED | | | | [place] [address] | | HEART | | | |Performed by [facility] [address], [place] [address] | | MEDICAL | | | | [...] + | BETH LIZ | [address] | [place] [address] | | | [facility] | | | | | YANY DENNISON [...] | 21.3 | >=5.8 ng/mL | [facility] | | | | Comment: | | [...] CE | | | B-12 | by [facility] [address], | | SACRED | | | | [place] [address] | | HEART | | | |Performed by [facility] [address], [place] | | MEDICAL | | | [...] + + | [facility]ETH [facility] | [address] | [place] | | | [facility] [...] by | | | | | | [facility] [address], | | | | | | [place] [address] | | | | + + + + + + + + | Specimen | + + | Blood specimen | | (specimen) | + + + + + + + | Performing | Address | City/State/Zipcode | Phone Number | | Organization | | | | + + + + + | BETH LIZ | [address] | [place] [address] | | | [facility] | | | | | LABORATORY [...] | | | POC | Performed by [facility] [address] | | SACRED | | | | [address] [place] | | HEART | | | | [address] | | MEDICAL | | | | [...] + | BETH LIZ | [address] | [place] [address] | | | [facility] | | | | | LABORATORY [...] (H)Comment: | 65 - 99 mg/dL | RIMAE | | | POC | Performed by [facility] [address] | | SACRED | | | | [address], [place] | | HEART | | | | [address] | | MEDICAL | | | | [...] + | BETH LIZ | [address] | [place] [address] | | | [facility] | | | | | LABORATORY [...] | | | POC | Performed by [facility] [address] | | SACRED | | | | [address] [place] | | HEART | | | | [address] | | MEDICAL | | | | [...] + | BETH LIZ | [address] | [place] [address] | | | [facility] | [...] | | | | | K/uL | [facility] | | | | | | HEART | | | | | | MEDICAL | | | | | | CENTER | | | | | | LABORAT YADIRA | | | | | | [place] [...] PROVIDE NCE | | | | by [facility] [address], | | SACRED | | | | [place] [address] | | HEART | | | |Performed by [facility] [address], [place] [address] | | MEDICAL | | | | [...] + + | BETH LIZ | [address] | [place] | | | [facility] | | | | | LABORATORY [...] LUIS CE | | | | by [facility] [address], | | [place] | | | | [place] | | HEART | | | |Performed by [facility] [address], [place] [address] | | MEDICAL | | | | | | CENTER | | | | | | LABORATO RY | | | | | | JESI | | + + + +--------- ----+ + + + | Specimen | + + | Blood specimen | | (specimen) | + + + + + + + | Performing | Address | City/State/Zipcode | Phone Number | | Organization | | | | + + + + + | BETH LIZ | [address] | [place] [address] | | | [facility] | [...] | | LABORATORY | | | | [facility] [address], | | [place]ERN[place] | | | | [place] [address] | | | | + + + + + + + + | Specimen | + + | Blood specimen | | (specimen) | + + + + + + + | Performing | Address | City/State/Zipcode | Phone Number | | Organization | | | | + + + + + | BETH LIZ | [address] | [place] [address] | | | [facility] | | | | | LABORATORY [...] | | | POC | Performed by [facility] [address] | | SACRED | | | | [address] [place] | | HEART | | | | [address] | | MEDICAL | | | | [...] + + + + | [facility] | [address] | [place] [address] | | | [facility] | | | | | LABORATORY [...] | | | POC | Performed by [facility] [address] | | SACRED | | | | [address], [place] | | HEART | | | | [address] | | MEDICAL | | | | [...] + + | BETH LIZ | [address] | [place] [address] | | | [facility] | | | | | LABORATORY [...] | | Core Ab, | Performed At: [facility] | | SACRED | | | Total | [id number] | | HEART | | | | [address] [place], [place] | | MEDICAL | | | | [phone] | | CENTER | | | | L Ph:[id number] | | LABORATORY | | | | [...] + + | BETH LIZ | [address] | [place] [address] | | | [facility] | | | | | LABORATORY [...] | SACRED | | | | by [facility] [address], | | HEART | | | | [place] [address] | | MEDICAL | | | | [...] [address] | [place] [address] | | | [facility] | | | | | LABORATORY [...] | SACRED | | | | by [facility] [address], | | HEART | | | | [place] [address] | | MEDICAL | | | | [...] + + | BETH LIZ | [address] | [place] [address] | | | HEART [facility] | | | | [...] REPORT | No anaerobes isolated | | SACRED | | | [...] | MEDICAL | | | | by [facility] [address], | | CENTER | | | | [place] [address] | | LABORATORY | | | |Performed by [facility] [address], [place] [address] | | CERNER | | | | [...] + + | BETH LIZ | [address] | [place] [address] | | | [facility] | | | | | LABORATORY [...] | | | POC | Performed by [facility] [address] | | [place]CR[place]ANS | | | | [place] | | HEART | | | | [address] | | MEDICAL | | | | [...] + | BETH LIZ | [address] | [place] [address] | | | [facility] | | | | | LABORATORY [...] | | | POC | Performed by [facility] [address] | | SACRED | [...] [address] | [place] [address] | | | HEART [facility] | | | | [...] CENTER | | | | 3.5Performed by [facility] [address] | | LABORATORY | | | | [address], [place] | | [place] | | | | [address] | | | | + + + + + + + + | Specimen | + + | Blood specimen | | (specimen) | + + + + + + + | Performing | Address | City/State/Zipcode | Phone Number | | Organization | | | | + + + + + | BETH LIZ | [address] | [place] [address] | | | [facility] | | | | | YANY [...] | 5.46 | 3.80 - 11.00 | [facility] | | | | | K/uL | [...] | | | Immature | Performed by [facility] [address] | K/uL | SACRED | | | Granulocyte | [place] | | HEART | | | s | [phone] | | MEDICAL | | | | [...] + + | BETH LIZ | [address] | [place] [address] | | | [facility] | | | | | LABORATORY [...] | | LABORATORY | | | | [facility] [address], | | [place] | | | | [place] [address] | | | | + + + + + + + + | Specimen | + + | Blood specimen | | (specimen) | + + + + + + + | Performing | Address | City/State/Zipcode | Phone Number | | Organization | | | | + + + + + | BETH LIZ | [address] | [place] [address] | | | [facility] | | | | | LABORATORY [place] | | | | + + + + + documented in this encounter Visit Diagnoses + + | Diagnosis | + + | probable Discitis of thoracic region - Primary Other and unspecified disc disorder of | | thoracic region | + + | Other secondary osteoarthritis of multiple sites | + + | ESRD (end stage renal disease) on dialysis (HCC) End stage renal disease | + + | Essential hypertension Unspecified essential hypertension | + + | ESRD (end stage renal disease) (HCC) End stage renal disease | + + | Type 2 diabetes mellitus with stage 4 chronic kidney disease, with long-term current | | use of insulin (HCC) | + + | Osteomyelitis, unspecified site, unspecified type (HCC) | + + | DM (diabetes mellitus), type 2 (HCC) Type II or unspecified type diabetes mellitus | | without mention of complication, not stated as uncontrolled | + + | DJD (degenerative joint disease) Osteoarthrosis, unspecified whether generalized or | | localized, unspecified site | + + | Macrocytic anemia Unspecified deficiency anemia | + + | Hyperlipidemia Other and unspecified hyperlipidemia | + + documented in this encounter [...] | | | | | dose on 03/27/19 at 1200 | | | | | [...] +-----+-------+---+ +---+---+ | | | +---+---+ + +---------+ +-----+-------+---+ | cefepime (MAXIPIME) 2 g in | New Bag | 03/25/20 | 2 g | 100 | | | sodium chloride 0.9% 50 mL IVPB | | 19 9:15 | | mL/hr | | | 2 g, Intravenous, Administer over | | AM PDT | | | | | 30 Minutes, EVERY 24 HOURS | | | | | | | (Daily), First dose on Fri | | | | | | | 03/24/19 at 1615, Renally dosed | | | | | | | per P&T protocol. Activate system | | | | | | | and mix before use., | | | | | | | Indications: Osteomyelitis, | | | | | | | SEPSIS OF UNKNOWN ETIOLOGY | | | | | | + +---------+ +-----+-------+---+ +---------+ +-----+-------+---+ | New Bag | 03/24/20 | 2 g | 100 | | | | 19 8:05 | | mL/hr | | | | PM PDT | | | | +---------+ +-----+-------+---+ +---+---+ | | | +---+---+ + +-------+ +--------+---+---+ | cholecalciferol (VITAMIN D-3) | Given | 03/31/20 | 4,000 | | | | tablet 4,000 Units 4,000 Units, | | 19 1:01 | Units | | | | Oral, DAILY, First dose on Fri | | PM PDT | | [...] PDT | | | | | Starting Wed03/24/19 at 0159, 1st | | | | [...] | fentaNYL (PF) injection | Given | 03/24/20 | 25 mcg | | | | Intravenous, PRN, Starting Fri | | 19 2:43 | | | | | 03/24/19 at 1415, Intra-op | | PM PDT | | | | + +-------+ +--------+---+---+ +-------+ +--------+---+---+ | Given | 03/24/20 | 25 mcg | | | | | 19 2:15 | | | | | | PM [...] | | | | First dose on [facility] 03/30/19 at 1130 | | AM [...] | | | | First dose on [facility] 03/30/19 at 2100 | | PM PDT [...] | hydrALAZINE (APRESOLINE) tablet | Given | 03/27/20 | 10 mg | | | | 10 mg 10 mg, Oral, 2 TIMES | | 19 8:41 | | | | | DAILY, First dose on Wed03/26/19 | | PM PDT | | | | | at 2100 | | | | | | + +-------+ +-------+---+---+ +-------+ +-------+---+---+ | Given | 03/27/20 | 10 mg | | | | | 19 10:43 | | | | | | AM PDT | | | | +-------+ +-------+---+---+ | Given | 03/26/20 | 10 mg | | | | | 19 8:35 | | | | | | PM PDT | | | | +-------+ +-------+---+---+ +---+---+ | | | +---+---+ + +-------+ +-------+---+---+ | hydrALAZINE (APRESOLINE) tablet | Given | 03/28/20 | 25 mg | | | | 25 mg 25 mg, Oral, 2 TIMES | | 19 10:31 | | | | | DAILY, First dose (after last | | AM PDT | | | | | modification) on Tu03/28/19 at | | | | | | | 0900 | | | | | | + +-------+ +-------+---+---+ +---+---+ | | | +---+---+ + +-------+ +-------+---+---+ | hydrALAZINE (APRESOLINE) tablet | Given | 03/28/20 | 25 mg | | | | 25 mg 25 mg, Oral, 2 TIMES | | 19 10:23 | | | | | DAILY, First dose on Wed03/28/19 | | PM PDT | | | | | at 2230 | | | | | | + +-------+ +-------+---+---+ +---+---+ | | | +---+---+ + +-------+ +-------+---+---+ | hydrALAZINE (APRESOLINE) tablet [...] +------+---+---+ | HYDROmorphone (DILAUDID) | Given | 03/24/20 | 1 mg | | | | injection 1 mg 1 mg, | | 19 1:53 | | | | | Intravenous, ONCE, 03/24/19 at | | AM PDT | | | | | 0200, For 1 dose | | | | [...] scheduled: AC, NPO, Daytime | | | 3282-4130 Use NIGHT DOSE for | | | doses scheduled: HS, 3AM, | | | Nighttime [id number] If the BG is | | | [...] | | | | | Wed03/24/19 at 0201 | | | | | [...] | +---+---+ + +-------+ +-------+---+---+ | lidocaine 1% injection PRN, | Given | 03/28/20 | 7 mLs | | | | Starting 03/28/19 at 1449 | | 19 2:49 | | | | | | | PM [...] | | +---+---+ + +-------+ +--------+---+---+ | midazolam (VERSED) 1 mg/mL | Given | 03/24/20 | 0.5 mg | | | | injection Intravenous, PRN, | | 19 2:43 | | | | | Starting 03/24/19 at 1413 | | PM PDT | | | | + +-------+ +--------+---+---+ +-------+ +--------+---+---+ | Given | 03/24/20 | 1.5 mg | | | | | 19 2:13 | | | | | | PM PDT | | | | +-------+ +--------+---+---+ +---+---+ | | | +---+---+ + +-------+ +-------+---+---+ | NIFEdipine (PROCARDIA XL) ER | Given | 03/28/20 | 60 mg | | | | tablet 60 mg 60 mg, Oral, DAILY, | | 19 8:03 | | | | | First dose on Wed03/24/19 at | | AM PDT | | | | | 0945, Do not cut or crush., | | | | | | + +-------+ +-------+---+---+ +-------+ +-------+---+---+ | Given | 03/27/20 | 60 mg | | | | | 19 1:48 | | | | | | PM PDT | | | | +-------+ +-------+---+---+ | Given | 03/26/20 | 60 mg | | | | | 19 8:52 | | | | | | AM [...] | | | | | Vomiting, Starting Wed03/24/19 | | | | | | | [...] + +-------+ +------+---+---+ | oxyCODONE (ROXICODONE) tablet 5 | Given | 03/31/20 | 5 mg | | | | mg 5 mg, Oral, EVERY 4 HOURS | | 19 10:07 | | | | | PRN, Pain, Starting 03/31/19 | | AM PDT | | | | | at 0724 | | | | | | + [...] | +---+---+ + +-------+ + +---+---+ | oxyCODONE-acetaminophen | Given | 03/24/20 | 1 tablet | | | | (PERCOCET) 5-325 mg per tablet 1 | | 19 1:39 | | | | | tablet 1 tablet, Oral, EVERY 4 | | AM PDT | | | | | HOURS PRN, Pain, Starting Fri | | | | | | | 03/24/19 at 0101 | | | | | | + +-------+ + +---+---+ +---+---+ | | | +---+---+ + +-------+ + +---+---+ | oxyCODONE-acetaminophen | Given | 03/30/20 | 1 tablet | | | | (PERCOCET) 5-325 mg per tablet | | 19 9:32 | | | | | 1-2 tablet 1-2 tablet, Oral, | | AM PDT | | | | | EVERY 4 HOURS PRN, Pain, Starting | | | | | | | 03/24/19 at 0158, If | | | | | | | ineffective use Oxycodone if | | | | | | | ordered. If not tolerated use | | | | | | | [place] 10/325 if ordered., | | | | | | + +-------+ + +---+---+ +-------+ +---------+---+---+ | Given | 03/30/20 | 2 | | | | | 19 5:28 | tablets | | | | | AM PDT | | | | +-------+ +---------+---+---+ | Given | 03/30/20 | 2 | | | | | 19 1:39 | tablets | | | | | AM PDT [...] | | | | First dose on 03/24/19 at | | PM PDT | | [...] - PRN, Hypotension, | | | Starting 03/24/19 at 1010, | | | Treatment date(s): 03/24/2019, For | | | BP less than 100 mm Hg. Give | | | 100 mL bolus up to 1000 mL. | | | DIALYSIS USE ONLY - DISCONTINUE | | | AFTER DIALYSIS THERAPY IS | | | COMPLETE, Dialysis | | + +---+ | | | + +---+ + +---------+ +-----+--------+---+ | vancomycin 1 g in sodium | New Bag | 03/24/20 | 1 g | 166.7 | | | chloride 0.9% 250 mL IVPB 1 g, | | 19 10:06 | | mL/hr | | | Intravenous, Administer over 90 | | PM PDT | | | | | Minutes, ONCE, Wed03/24/19 at | | | | | | | 1630, For 1 dose, Notify pharmacy | | | | | | | if dose is started one (1) hour | | | | | | | outside of scheduled time | | | | | | | Activate system and mix before | | | | | | | use., Indications: Osteomyelitis | | | | | | + +---------+ +-----+--------+---+ +---+---+ | | | +---+---+ + +---------+ +--------+-------+---+ | vancomycin 500 mg in sodium | New Bag | 03/31/20 | 500 mg | 100 | | | chloride 0.9% 100 mL IVPB 500 | | 19 1:04 | | mL/hr | | | mg, Intravenous, Administer over | | PM PDT | | | | | 60 Minutes, ONCE, Wed03/31/19 at | | | | | | | 1100, For 1 dose, Give dose after | | | | | | | hemodialysis today Activate | | | | | | | system and mix before use., | | | | | | | Indications: Osteomyelitis | | | | | | + +---------+ +--------+-------+---+ +---+---+ | | | +---+---+ + +---------+ +--------+-------+---+ | vancomycin in saline IVPB 750 | New Bag | 03/27/20 | 750 mg | 150 | | | mg 750 mg, Intravenous, | | 19 2:42 | | mL/hr | | | Administer over 60 Minutes, ONCE, | | PM PDT | | | | | 03/27/19 at 1400, For 1 dose, | | | | | | | Give after HD on 03/27 Keep in | | | | | | | refrigerator., Indications: | | | | | | | Osteomyelitis | | | | | | + +---------+ +--------+-------+---+ +---+---+ | | | +---+---+ + +---------+ +--------+-------+---+ | vancomycin in saline IVPB 750 | New Bag | 03/29/20 | 750 mg | 150 | | | mg 750 mg, Intravenous, | | 19 2:12 | | mL/hr | | | Administer over 60 Minutes, ONCE, | | PM PDT | | | | | 03/29/19 at 1000, For 1 dose, | | | | | | | Notify pharmacy if dose is | | | | | | | started one (1) hour outside of | | | | | | | scheduled time Keep in | | | | | | | refrigerator., Indications: | | | | | | | Osteomyelitis | | | | | | + +---------+ +--------+-------+---+ + +---+ | | | + +---+ | vancomycin per pharmacy | | | PHARMACY CONSULT, Starting Fri | | | 03/24/19 at 1551, Indications: | | | Osteomyelitis | | + +---+ | | | + +---+ documented in this encounter
--- OUTSIDE RECORDS SUMMARY | ~2019-08-24 | XMS | Encounter Summary ---
Demographics + + + | Address | [address] | | | [place] [address] | + + + | Home Phone | | + + + | Preferred Language | Unknown | + + + | Marital Status | Single | + + + | Buddhist Affiliation | Unknown | + + + | Race | Unknown | + + + | Ethnic Group | Unknown | + + + Author + + + | Author | [facility] | | | and Kamaljitana | + + + | Organization | [facility] | | | and [place] | + + + | Address | Unknown | + + + | Phone | Unavailable | + + + Support + + + + + | Name | Relationship | Address | Phone | + + + + + | India Tilley | ECON | [address] | | | | | [place], [place] | | | | | [address] | | + + + + + | Yina La | ECON | Unknown | | + + + + + | Yina Peterson | ECON | Unknown | | + + + + + | Leatha Casillas | ECON | Unknown | | + + + + + Care Team Providers + +------+ + | Care Nutrition Aide Name | Role | Phone | + +------+ + PCP | Unavailable | + +------+ + Encounter Details +--------+ + + + + | Date | Type | Department | Care Team | Description | +--------+ + + + + | 01/04/ | Hospital | [facility] | Santos Stephenson | Decreased glomerular | | 2018 | Encounter | MED CTR OR INTRA OP | MD Kinga, FACS [address] | filtration rate | | | | [address] | [facility] | (GFR) | | | | [place], [place] | [place] [address] | | | | | [address] | [phone] | | | | | [phone] | | | +--------+ + + + [...] what medicines and drugsyou take. This includes awzb-rli-err nter medicines, herbs, supplements, alcohol or other [...] ke ep you safe. Date Last Reviewed: 08/13/201619997442-3252 [employer]. [address] [place] [address]. All righ ts reserved. This information is not intended as a substitute for professional medical care. Always follow your healthcare professional's instructions. [facility] POST-OP INSTRUCTIONS: Arterio-Venous Fistula 1. Keep the [...] + + +---------+ + + | Cheyenne GHOSH | by Does not apply | | [...] | | | | PDT | (FORMERLY [facility]) (N18.5) | | + +--------+ + + [...] [address] | [place] | [phone] | | [facility] | | [address] | | | - LABORATORY | | [...] + | [facility] | [address] | [place] | [phone] | | [facility] | | [address] | | | - LABORATORY | | [...] [address] | [place] | [phone] | | [facility] | | [address] | | | - LABORATORY | | [...] + | [facility] | [address] | [place] | [phone] | | [facility] | | [address] | | | - LABORATORY | | [...] | | | | | mmol/L | [place] | | | | | [...] not | 16 (L)Comment: | >=60 | B[facility] | | | | GLOMERULAR FILTRATION | mL/min/1.73m2 | [facility] | | | [place] | RATE,ESTIMATED | | MEDICAL | | | | mL/min/1.24m5Xxfp than | | CENTER - | | [...] + | BUN/Creatin | 4.2 | | [facility] | | | ine Ratio | | [...] + + + + | [facility] | [address] | [place] | [phone] | | [facility] | | [address] | | | - LABORATORY | | | | + + + + + documented in this encounter Visit Diagnoses + + | Diagnosis | + + | Decreased glomerular filtration rate (GFR) | + + documented in this encounter [...] MIN PRN, Pain, Starting | | | e 01/04/18 at 1528, Maximum | | | total [...] DBP > 100, | | | Starting 01/04/18 at 1528, | | | Hold [...] | | | | PRN, Nausea, Starting e 01/04/18 | | PM PDT | | [...] PRN, Nausea, Vomiting, | | | Starting e 01/04/18 at 1611, | | | First [...]
--- OUTSIDE RECORDS SUMMARY | ~2019-08-24 | XMS | Encounter Summary ---
Demographics + + + | Address | [address] | | | [place] [address] | + + + | Home Phone | | + + + | Preferred Language | Unknown | + + + | Marital Status | Single | + + + | Sabianism Affiliation | Unknown | + + + | Race | Unknown | + + + | Ethnic Group | Unknown | + + + Author + + + | Author | [facility] | | | and Kamaljitana | + + + | Organization | [facility] | | | and [place] | + + + | Address | Unknown | + + + | Phone | Unavailable | + + + Support + + + + + | Name | Relationship | Address | Phone | + + + + + | India Tilley | ECON | [address] | | | | | [place], [place] | | | | | [address] | | + + + + + | Yina La | ECON | Unknown | | + + + + + | Yina Peterson | ECON | Unknown | | + + + + + | Leatha Casillas | ECON | Unknown | | + + + + + Care Team Providers + +------+ + | Care Pouako Kura Kaupapa Maori Name | Role | Phone | + [...] | Surgery | kidney | DO [address] | , [address] | | | | | disease, | [place], [place] | [address] | | | | | stage V | [address] | [place], | | | | | ([facility]) | [place], [place] | [place] [address] | | | | | | [address] | Phone: | | | | | | Phone: | [phone] | | | | | | [phone] | Fax: | | | | | | Fax: | [phone] | | | | | | [phone] | | +--------+ + + + + + Encounter Details +--------+ + + + + | Date | Type | Department | Care Team | Description | +--------+ + + + + | 10/06/ | Orders Only | [facility] | Gopi Muñoz | Chronic kidney | | 2018 | | NEPHROLOGY [address] | M, DO [address] | disease, stage V | | | | [address] | [place], [address] | ([facility]) (Primary Dx) | | | | [place] | [place] | | | | | [address] | [address] | | | | | [phone] | | | +--------+ + + + [...] | | | Referral | | | ([facility]) | | + + +--------+ + + [...]
--- OUTSIDE RECORDS SUMMARY | ~2019-08-24 | XMS | Encounter Summary ---
Demographics + + + | Address | [address] | | | [place] [address] | + + + | Home Phone | | + + + | Preferred Language | Unknown | + + + | Marital Status | Single | + + + | Muslim Affiliation | Unknown | + + + | Race | Unknown | + + + | Ethnic Group | Unknown | + + + Author + + + | Author | [facility] | | | and Kamaljitana | + + + | Organization | [facility] | | | and [place] | + + + | Address | Unknown | + + + | Phone | Unavailable | + + + Support + + + + + | Name | Relationship | Address | Phone | + + + + + | India Tilley | ECON | [address] | | | | | [place], [place] | | | | | [address] | | + + + + + | Yina La | ECON | Unknown | | + + + + + | Yina Peterson | ECON | Unknown | | + + + + + | Leatha Casillas | ECON | Unknown | | + + + + + Care Team Providers + +------+ + | Care Automotive Collision Repair Instructor Name | Role | Phone | + +------+ + PCP | Unavailable | + +------+ + Reason for Visit +--------+ + | Reason | Comments | +--------+ + | Other | Admission Records 06/20/2019-06/22/2019- [facility] . | +--------+ + Encounter Details +--------+ + + + + | Date | Type | Department | Care Team | Description | +--------+ + + + + | 06/27/ | Documentati | [facility] | Tabatha Patel, | Other (Admission | | 2019 | on | INFECTIOUS DISEASE | Manager Intensive Care | Records | | | | [address] | | 06/20/2019- | | | | [place], [place] | [facility] | | | [address] | | [facility] . ) | | | | [phone] | | | +--------+ + + + [...] + documented as of this encounter Progress Tabatha Rowley Manager Intensive Care - 06/27/2019 10:44 AM PDTReceived records from [facility]. For patient admission from 06/20/2019-06/22/2019. Records were sent to scan. Yoko CMA. documen rich in this encounter Plan of Treatment Not on filedocumented as of this encounter Visit Diagnoses Not on filedocumented in this encounter"
--- OUTSIDE RECORDS SUMMARY | ~2019-08-24 | XMS | Encounter Summary ---
Demographics + + + | Address | [address] | | | [place] [address] | + + + | Home Phone | | + + + | Preferred Language | Unknown | + + + | Marital Status | Single | + + + | Methodist Affiliation | Unknown | + + + | Race | Unknown | + + + | Ethnic Group | Unknown | + + + Author + + + | Author | [facility] | | | and Kamaljitana | + + + | Organization | [facility] | | | and [place] | + + + | Address | Unknown | + + + | Phone | Unavailable | + + + Support + + + + + | Name | Relationship | Address | Phone | + + + + + | India Tilley | ECON | [address] | | | | | [place], [place] | | | | | [address] | | + + + + + | Yina La | ECON | Unknown | | + + + + + | Yina Peterson | ECON | Unknown | | + + + + + | Leatha Casillas | ECON | Unknown | | + + + + + Care Team Providers + +------+ + | Care Collection Support Specialist Name | Role | Phone | [...] + + | 04/04/ | Telephone | [facility] | Zari Azul | Hospital Follow-up | | 2019 | | Internal Medicine | Gregg RN | | | | | Hospitalists [address] | | | | | [address] [place] | | | | | | [address] | | | | | | [phone] | | | +--------+ + + + [...]
--- OUTSIDE RECORDS SUMMARY | ~2019-08-24 | XMS | Encounter Summary ---
Demographics + + + | Address | [address] | | | [place] [address] | + + + | Home Phone | | + + + | Preferred Language | Unknown | + + + | Marital Status | Single | + + + | Scientology Affiliation | Unknown | + + + | Race | Unknown | + + + | Ethnic Group | Unknown | + + + Author + + + | Author | [facility] | | | and Kamal[place]it[place] | + + + | Organization | [facility] | | | and [place] | + + + | Address | Unknown | + + + | Phone | Unavailable | + + + Support + + + + + | Name | Relationship | Address | Phone | + + + + + | India Tilley | ECON | [address] | | | | | [place], [place] | | | | | [address] | | + + + + + | Yina La | ECON | Unknown | | + + + + + | Yina Peterson | ECON | Unknown | | + + + + + | Leatha Casillas | ECON | Unknown | | + + + + + Care Team Providers + +------+ + | Care Critical Care Physician Assistant Name | Role | Phone | + +------+ + PCP | Unavailable | + +------+ + Encounter Details +--------+ + + + + | Date | Type | Department | Care Team | Description | +--------+ + + + + | 01/04/ | Hospital | [facility] | Santos Stephenson | Decreased glomerular | | 2018 | Encounter | MED CTR OR INTRA OP | MD Kinga, FACS [address] | filtration rate | | | | [address] | [facility] | (GFR) | | | | [place], [place] | [place] [address] | | | | | [address] | [phone] | | | | | [phone] | | | +--------+ + + + [...] what medicines and drugsyou take. This includes toyw-axg-dht nter medicines, herbs, supplements, alcohol or other [...] ke ep you safe. Date Last Reviewed: 08/13/201619996609-9922 [employer]. [address] [place] [address]. All righ ts reserved. This information is not intended as a substitute for professional medical care. Always follow your healthcare professional's instructions. [facility] POST-OP INSTRUCTIONS: Arterio-Venous Fistula [...] | | | | PDT | ([facility]ER[facility]) (N18.5) | | + +--------+ + + [...] [address] | [place] | [phone] | | [facility] | | [address] | | | - LABORATORY | | [...] + | [facility] | [address] | [place] | [phone] | | [facility] | | [address] | | | - LABORATORY | | [...] [address] | [place] | [phone] | | [facility] | | [address] | | | - LABORATORY | | [...] + | [facility] | [address] | [place] | [phone] | | [facility] | | [address] | | | - LABORATORY | | [...] | mL/min/1.73m2 | [facility] | | | [place] | RATE,ESTIMATED | | MEDICAL | | | | mL/min/1.95y7Ivfc than | | CENTER - | | [...] [address] | [place] | [phone] | | [facility] | | [address] | | | - LABORATORY | | [...]
--- OUTSIDE RECORDS SUMMARY | ~2019-08-24 | XMS | Encounter Summary ---
Demographics + + + | Address | [address] | | | [place] [address] | + + + | Home Phone | | + + + | Preferred Language | Unknown | + + + | Marital Status | Single | + + + | Tenriism Affiliation | Unknown | + + + | Race | Unknown | + + + | Ethnic Group | Unknown | + + + Author + + + | Author | [facility] | | | and Kamaljitana | + + + | Organization | [facility] | | | and [place] | + + + | Address | Unknown | + + + | Phone | Unavailable | + + + Support + + + + + | Name | Relationship | Address | Phone | + + + + + | India Tilley | ECON | [address] | | | | | [place], [place] | | | | | [address] | | + + + + + | Yina La | ECON | Unknown | | + + + + + | Yina Peterson | ECON | Unknown | | + + + + + | Leatha Casillas | ECON | Unknown | | + + + + + Care Team Providers + +------+ + | Care Rod Cup Filler Name | Role | Phone | + +------+ + | Renato Pierson | PCP | | + +------+ + Encounter Details +--------+ + + + + | Date | Type | Department | Care Team | Description | +--------+ + + + + | 06/26/ | Documentati | [facility] | Gopi Muñoz | | | 2019 | on | NEPHROLOGY [address] | M, DO [address] | | | | | [address] | [place] | | | | | [place] | [place] | | | | | [address] | [address] | | | | | [phone] | | | +--------+ + + + [...] + + + | Blood Pressure | 149/61 | 06/26/2019 3:11 PM | | | | | PDT | | + + + + + | Pulse | - | - | | + + + + + | Temperature | 36.2 C (97.1 F) | 06/26/2019 3:11 PM | | | | | PDT [...] of this encounter Progress Notes Gopi Muñoz, - 06/26/2019 11:59 PM PDT Subjective: DIALYSIS NOTE Patient ID: Estefani Tilley is a 74 y.o. female. 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 Unfortunate she has had a consistent pattern of missed treatments up to an entire week. I reiterated to her that she is scheduled for 3 treatments/week which he lps improve outcome, and maintains an adequate KT/V, i.e. urea clearance. Additionally, she has been lost to follow-up for ID consultation, or for her scheduled CT-g uided biopsy of her T-spine. She denies fever, chills, or acute back pain today. PAST MEDICAL HISTORY: 1. ESRD 2 diabetic glomerulosclerosiswith the patient beginning Inpt HD in 018and then was DC to [facility] [place], [place]. Unfortunat brandy, she has had intermittent [...] Outpatient Medications Marked as Taking for the 06/26/19 encounter (Documentation) with Ant Muñoz DO Medication Sig Dispense Refill acetaminophen (TYLENOL) 500 mg tablet Take 500 mg by mouth as needed for Pain. albuterol 90 mcg/puff inhaler Inhale 2 puffs into the lungs 4 times daily as needed for Shortness of Breath. amLODIPine (NORVASC) 5 mg tablet Take 1 tablet by mouth 2 times daily. 60 tablet 0 ARTIFICIAL TEAR SOLUTION OP Place 1-2 drops [...] daily (with christa ls). 180 capsule 0 cetirizine (ZYRTEC) 10 mg tablet Take 10 mg by mouth Daily. Cholecalciferol 4000 units TABS Take 4,000 Units by mouth Daily. cloNIDine (CATAPRES) 0.3 mg/[address] 1 patch onto the skin Once a week. 4 patc h 11 epoetin karthik (EPOGEN, PROCRIT) 4,000 units/mL injection Inject 0.85 mLs into the vein T hree times a week. (Patient taking differently: Inject 11,000 Units into the vein Three time s a week.) furosemide (LASIX) 80 mg tablet Take 1 [...] tablet Take 1 tablet by mouth Daily. 30 tablet 0 NIFEdipine (PROCARDIA XL) 90 mg ER tablet Take [...] to my stomach". Naprosyn [Naproxen] Objective: BP 149/61 | Temp 36.2 C (97.1 F) EDW 64 kg Physical Exam Heart: Regular rate and rhythm with no S3, S4, murmur or rub. Lungs: CTA bilaterally. No rales or wheezes. PICC line right chest is clear, dry, nonten jorge. Abdomen: soft, obese, nontender, NABS. Extremities: no edema, no clubbing, or cyanosis. No foot ulcers. LAB: BUN 30, Cr 5.16, K+ 4.4, albumin 3.3, Ca++ 7.2, phosphorus 14.7, PTH 451, Hb 9.4, T sa t [not listed], ferritin [not listed], spKT/V = 1.69 Assessment: 1. ESRD --adequacy has been stable on her current Rx, 4 hours, thrice weekly. 2. 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 Hypertension-- she is repeatedly inquired about switching to CAPD but I think that may be less optimal as she does have absenteeism from her treatments. BP control this week is improved over earlier in the month. 4. Anemia 2 to CKD-- will increase EPO by 25% to target the Hb 10-11 g/dl. 5. Nutrition--serum albumin is below target. I think that she is not getting adequate dos e of dialysis due to absenteeism of up to 2 treatments/week, on a consistent basis. 6. Type 2 DM-- stable. 7. 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 I discussed with her at length about the potential r isk of calciphylaxis, increased CV risk given this. I reviewed with her features of a <1000 mg phosphorus restriction. She was A&O x3 throughout this entire discussion. 8. Hypothyroidism--need to recheck her TSH. Plan: 1. Monthly lab was reviewed with the patient. 2. I had a lengthy discussion with her that her dose of dialysis is adequate as she is not receiving 3 treatment/week. I discussed in very simple terms that this could lead to incre ase cardiovascular mortality, poor outcome for CKD/MBD, and chronic CHF. She was A&O x3 dur ing this discussion. 3. She promises to do better about treatment attendance. 4. She did inquire about CAPD but I have sincere reservations about that given her recent absenteeism from her recommended 3 scheduled treatments/week. Electronically signed by Gopi Muñoz DO. 07/30/19 3:11 PM CC: [facility], [place], [place] [facility], [place], [place]. document ed in this encounter Plan of Treatment Not on filedocumented as of this encounter Visit Diagnoses + + | Diagnosis | + + | ESRD (end stage renal disease) on dialysis (HCC) - Primary End stage renal disease | + + documented in this encounter
--- OUTSIDE RECORDS SUMMARY | ~2019-08-24 | XMS | Encounter Summary ---
Demographics + + + | Address | [address] | | | [place] [address] | + + + | Home Phone | | + + + | Preferred Language | Unknown | + + + | Marital Status | Single | + + + | Hoahaoism Affiliation | Unknown | + + + | Race | Unknown | + + + | Ethnic Group | Unknown | + + + Author + + + | Author | [facility] | | | and Kamaljitana | + + + | Organization | [facility] | | | and [place] | + + + | Address | Unknown | + + + | Phone | Unavailable | + + + Support + + + + + | Name | Relationship | Address | Phone | + + + + + | India Tilley | ECON | [address] | | | | | [place], [place] | | | | | [address] | | + + + + + | Yina La | ECON | Unknown | | + + + + + | Yina Peterson | ECON | Unknown | | + + + + + | Leatha Casillas | ECON | Unknown | | + + + + + Care Team Providers + +------+ + | Care Flower Shop Laborer/Designer Name | Role | Phone | + [...] | renal | PA-C [address] | [address] | | | | | disease | [address] | [place], [place] | | | | | ([facility]) | [place] | [address] [facility] | | | | | Procedures | [address] | [facility] [place] | | | | | [place] ESRD | [facility] | [address] Phone: | | | | | RELATED [address] | [place] | [phone] | | | | | MONTHLY | [address] | Fax: | | | | | 20&/> YR OLD | Phone: | [phone] | | | | | 4/> VISITS | [phone] | | | | | | | Fax: | | | | | | | [phone] | | + +--------+ + + + + Encounter Details +--------+ + + + + | Date | Type | Department | Care Team | Description | +--------+ + + + + | 10/31/ | Off-Site | [facility] | Gopi Muñoz | End stage renal | | 2019 | Visit | NEPHROLOGY [address] | M, DO [address] | disease (HCC) | | | | [address] | [place] | (Primary Dx) | | | | [place] | [place], [place] | | | | | [address] | [address] | | | | | [phone] | | | +--------+ + + + [...] this encounter Progress Gopi Pugh DO - 10/31/2018 11:00 AM PST[Patient has been AMA from outpatient dial ysis for >30 days.] documented in thi s encounter Plan of Treatment Not on filedocumented as of this encounter Visit Diagnoses + + | Diagnosis | + + | End stage renal disease (HCC) - Primary End stage renal disease | + + documented in this encounter"
--- OUTSIDE RECORDS SUMMARY | ~2019-08-24 | XMS | Clinical Summary ---
Demographics + + + | Address | [address] | | | [place] [address] | + + + | Home Phone | | + + + | Preferred Language | Unknown | + + + | Marital Status | Single | + + + | Restorationist Affiliation | Unknown | + + + | Race | Unknown | + + + | Ethnic Group | Unknown | + + + Author + + + | Author | [facility] (Historical as of | | | 04-29-19) | + + + | Organization | [facility] (Historical as of | | | 04-29-19) | + + + | Address | Unknown | + + + | Phone | Unavailable | + + + Support + + +---------+ + | Name | Relationship | Address | Phone | + + +---------+ + | Yina Peterson | ECON | Unknown | | + + +---------+ + | Leatha Casillas | ECON | Unknown | | + + +---------+ + Care Team Providers + +------+ + | Care Oil Pipe Inspector Helper Name | Role | Phone | + +------+ + | Dr. Danya | PP | Unavailable | + +------+ + Allergies Not on File Current Medications Not on file Active Problems Not on file Social History + +-------+ +--------+------+ | Tobacco [...] on file | | + + + Plan of Treatment Not on file Results Not on filefrom Last 3 Months"
--- OUTSIDE RECORDS SUMMARY | ~2019-08-24 | XMS | Encounter Summary ---
Demographics + + + | Address | [address] | | | [place] [address] | + + + | Home Phone | | + + + | Preferred Language | Unknown | + + + | Marital Status | Single | + + + | Denominational Affiliation | Unknown | + + + | Race | Unknown | + + + | Ethnic Group | Unknown | + + + Author + + + | Author | [facility] | | | and [place] | + + + | Organization | [facility] | | | and [place] | + + + | Address | Unknown | + + + | Phone | Unavailable | + + + Support + + + + + | Name | Relationship | Address | Phone | + + + + + | India Tilley | ECON | [address] | | | | | [place], [place] | | | | | [address] | | + + + + + | Yina La | ECON | Unknown | | + + + + + | Yina Peterson | ECON | Unknown | | + + + + + | Leatha Casillas | ECON | Unknown | | + + + + + Care Team Providers + +------+ + | Care Environmental Sampler Name | Role | Phone | + [...] + + + + | 11/08/ | Anesthesia | [facility] | Vinnie Last MD | | | 2018 | Event | MED CTR OR INTRA OP | [address] | | | | | [address] | [place], [place] | | | | | [place], [place] | [address] | | | | | [address] | | | | | | [phone] | | | +--------+ + + + + Anesthesia Record + + + + + | Procedure Name | Responsible | Anesthesia Start | Anesthesia Stop Time | | | Anesthesiologist | Time | | + + + + + | Tunneled | Vinnie Last MD | 11/08/17 1142 | 11/08/17 1328 | | Hemodialysis | | | | | Catheter Placement | | | | | (N/A Abdomen) | | | | + + + + + +----+---+ + + | Da | T | Event | Comment | | te | i | | | | | m | | | | | e | | | +----+---+ + + | 02 | 1 | | | | /2 | 1 | | | | 6/ | 2 | | | | 20 | 4 | | | | 18 | | | | +----+---+ + + | | 1 | An Checkout | Pre-use anesthesia machine/equipment checkout. | | | 1 | | | | | 4 | | | | | 2 | | | +----+---+ + + | | 1 | An Start | Reassessment prior to anesthesia induction/procedure. | | | 1 | | | | | 4 | | | | | 2 | | | +----+---+ + + | | 1 | Preoxygenat | | | | 1 | ed | | | | 4 | | | | | 6 | | | +----+---+ + + | | 1 | An | | | | 1 | Induction | | | | 5 | | | | | 2 | | | +----+---+ + + | | 1 | An | | | | 1 | Intubation | | | | 5 | | | | | 2 | | | +----+---+ + + | | 1 | [place] | | | | 2 | 43-degrees | | | | 1 | | | | | 4 | | | +----+---+ + + | | 1 | Pre-Procedu | | | | 2 | ral Timeout | | | | 1 | Completed | | | | 4 | | | +----+---+ + + | | 1 | First | | | | 2 | Inc/Proc St | | | | 1 | | | | | 5 | | | +----+---+ + + | | 1 | [place] off | | | | 3 | | | | | 1 | | | | | 5 | | | +----+---+ + + | | 1 | Breathing | | | | 3 | Spontaneous | | | | 1 | ly | | | | 5 | | | +----+---+ + + | | 1 | Extubated | | | | 3 | Deep | | | | 2 | | | | | 2 | | | +----+---+ + + | | 1 | an stop | | | | 3 | data | | | | 2 | | | | | 2 | | | +----+---+ + + | | 1 | An Stop | Patient handed off to recovery nurse. | | | 2 | | | | | 8 | | | +----+---+ + + +------+ | Meds | +------+ + +---------+ | Name | Total | + +---------+ | ondansetron | 4 mg | + +---------+ | dexamethasone | 10 mg | + +---------+ | fentaNYL injection (2 mL) | 100 mcg | + +---------+ | ceFAZolin | 1 g | + +---------+ | sodium chloride 0.9% (NS) | 300 mL | | infusion | | + +---------+ + + | Name | + + | N2O Flow Rate (L/Min) | + + | O2 Flow Rate (L/Min) | + + | Insp O2 | + + | Exp SEV | + + | Exp CARLOS | + + | Air Flow Rate (L/Min) | + + + + | No blood administrations on file. | + + +--------+ + + + | Type | Details | Placement | Removal | +--------+ + + + | Periph | 11/04/17; 1117; Left; Forearm; 20 | 11/04/17 1117 by Sofya | 11/09/17 1700 by | | soll | gauge; 1; distraction; short | Jesise Perez RN | India Carrillo RN | | IV | term use; 11/09/17; 1700 | | | +--------+ + + + | Airway | Placement Date: 11/08/17; | 11/08/17 1152 by | 11/08/17 1322 by | | | Placement Time: 1152; Airway | Vinnie Last MD | Vinnie Last MD | | | Type: laryngeal mask, oral, | | | | | cuffed, non-disposable; Size: 4; | | | | | Trauma: none; Placement Check: | | | | | bilateral chest rise, exhaled CO2 | | | | | detection device; Removal Date: | | | | | 11/08/17; Removal Time: 1322 | | | +--------+ + + + [...] +--------+ + + + | Read | 11/08/17; 1237; Right; neck; | 11/08/17 1237 by | 11/09/17 1700 by | | only - | healing within expectations; | Wendy Zhu RN | India Carrillo RN | | | 11/09/17; 1700 | | | | Incisi | | | | | on | | | | +--------+ + + + | Read | 11/08/17; 1237; Right; chest; | 11/08/17 1237 by | 11/09/17 1700 by | | only - | healing within expectations; | Wendy Zhu RN | India Carrillo RN | | | 11/09/17; 1700 | | | | Incisi | | | | | on | | [...] | ceFAZolin (ANCEF, KEFZOL) | Given | 11/08/19 | 1 g | | | | injection Intravenous, PRN, | | 18 11:44 | | | | | Starting 11/08/17 at 1144, | | AM PST | | | | | Anesthesia Intra-op | | | | | | + +--------+ +------+------+------+ +---+---+ | | | +---+---+ + +-------+ +-------+---+---+ | dexamethasone (PF) 10 mg/mL | Given | 11/08/19 | 10 mg | | | | injection Intravenous, PRN, | | 18 12:18 | | | | | Starting 11/08/17 at 1218, | | PM PST | | | | | Anesthesia Intra-op | | | | | | + +-------+ +-------+---+---+ +---+---+ | | | +---+---+ + +-------+ +---------+---+---+ | fentaNYL (PF) injection | Given | 11/08/19 | 100 mcg | | | | Intravenous, PRN, Pain, Starting | | 18 12:17 | | | | | 11/08/17 at 1217, Anesthesia | | PM PST | | | | | Intra-op | | | | | | + +-------+ +---------+---+---+ +---+---+ | | | +---+---+ + +-------+ +------+---+---+ | ondansetron (ZOFRAN) injection | Given | 11/08/19 | 4 mg | | | | Intravenous, PRN, Nausea, | | 18 12:18 | | | | | Vomiting, Starting 11/08/17 at | | PM PST | | | | | 1218, Anesthesia Intra-op | | | | | [...]
--- OUTSIDE RECORDS SUMMARY | ~2019-08-24 | XMS | Encounter Summary ---
Demographics + + + | Address | [address] | | | [place] [address] | + + + | Home Phone [...] [facility] | | | and [place] | + + + | Organization | [facility] | | | and [place] | + + + | Address | Unknown | + + + | Phone | Unavailable | + + + Support + + + + + | Name | Relationship | Address | Phone | + + + + + | India Tilley | ECON | [address] | | | | | [place], [place] | | | | | [address] | | + + + + + | Yina La | ECON | Unknown | | + + + + + | Yina Peterson | ECON | Unknown | | + + + + + | Leatha Casillas | ECON | Unknown | | + + + + + Care Team Providers + +------+ + | Care School Library Media Program Director Name | Role | Phone | + +------+ + PCP | Unavailable | + +------+ + Encounter Details +--------+ + + + + | Date | Type | Department | Care Team | Description | +--------+ + + + + | 09/23/ | Hospital | [facility] | | | | 2006 - | Encounter | MED CTR CANCER | | | | | | CENTER [facility] [address] | | | | 10/13/ | | [place] | | | | 2006 | | [address] | | | | | | [phone] | | | +--------+ + + + [...]
--- OUTSIDE RECORDS SUMMARY | ~2019-08-24 | XMS | Encounter Summary ---
Demographics + + + | Address | [address] | | | [place] [address] | + + + | Home Phone [...] | Author | [facility] | | | and [place] | + + + | Organization | [facility] | | | and [place] | + + + | Address | Unknown | + + + | Phone | Unavailable | + + + Support + + + + + | Name | Relationship | Address | Phone | + + + + + | India Tilley | ECON | [address] | | | | | [place], [place] | | | | | [address] | | + + + + + | Yina La | ECON | Unknown | | + + + + + | Yina Peterson | ECON | Unknown | | + + + + + | Leatha Casillas | ECON | Unknown | | + + + + + Care Team Providers + +------+ + | Care Sales Assistant Entertainment And Media Name | Role | Phone | + +------+ + PCP | Unavailable | + +------+ + Encounter Details +--------+ + + + + | Date | Type | Department | Care Team | Description | +--------+ + + + + | 09/09/ | Hospital | [facility] | | | | 2005 - | Encounter | MED CTR CANCER | | | | | | CENTER [facility] [address] | | | | 09/12/ | | [place] | | | | 2005 | | [address] | | | | | | [phone] | | | +--------+ + + + [...]
--- OUTSIDE RECORDS SUMMARY | ~2019-08-24 | XMS | Encounter Summary ---
Demographics + + + | Address | [address] | | | [place] [address] | + + + | Home Phone | | + + + | Preferred Language | Unknown | + + + | Marital Status | Single | + + + | Adventist Affiliation | Unknown | + + + | Race | Unknown | + + + | Ethnic Group | Unknown | + + + Author + + + | Author | [facility] | | | and [place] | + + + | Organization | [facility] | | | and [place] | + + + | Address | Unknown | + + + | Phone | Unavailable | + + + Support + + + + + | Name | Relationship | Address | Phone | + + + + + | India Tilley | ECON | [address] | | | | | [place], [place] | | | | | [address] | | + + + + + | Yina La | ECON | Unknown | | + + + + + | Yina Peterson | ECON | Unknown | | + + + + + | Leatha Casillas | ECON | Unknown | | + + + + + Care Team Providers + +------+ + | Care Manager Med Surg Name | Role | Phone | + +------+ + PCP | Unavailable | + +------+ + Encounter Details +--------+ + + + + | Date | Type | Department | Care Team | Description | +--------+ + + + + | 02/26/ | Hospital | [facility] | Patricia, | | | 2006 - | Encounter | MED CTR CANCER | Venkatesh Forte MD [address] | | | | | [place] [address] | [facility] | | | 03/12/ | | [place], [place] | [place] [address] | | | 2006 | | [address] | [phone] | | | | | [phone] | | | +--------+ + + + [...]
--- OUTSIDE RECORDS SUMMARY | ~2019-08-24 | XMS | Encounter Summary ---
Demographics + + + | Address | [address] | | | [place] [address] | + + + | Home Phone [...] + | Author | [facility] | | | and [place] | + + + | Organization | [facility] | | | and [place] | + + + | Address | Unknown | + + + | Phone | Unavailable | + + + Support + + + + + | Name | Relationship | Address | Phone | + + + + + | India Tilley | ECON | [address] | | | | | [place], [place] | | | | | [address] | | + + + + + | Yina La | ECON | Unknown | | + + + + + | Yina Peterson | ECON | Unknown | | + + + + + | Leatha Casillas | ECON | Unknown | | + + + + + Care Team Providers + +------+ + | Care Bordereau Clerk Name | Role | Phone | + +------+ + PCP | Unavailable | + +------+ + Encounter Details +--------+ + + + + | Date | Type | Department | Care Team | Description | +--------+ + + + + | 11/08/ | Imaging | [facility] | Provider, | | | 2018 | Exam | MED CTR EXTERNAL | MD [address] | | | | | IMAGING | [address] | | | | | [phone] | [place] [address] | | +--------+ + + + + [...] Results XR Chest PA or AP (08/26/2006 5:30 PM PST) + + | Specimen | + + | | + + + + + | Narrative | Performed At | + + + | External films for comparison only - no result from [place]. | [facility] | + + + + +---------+ + + | Performing | Address | City/State/Zipcode | Phone Number | | Organization | | | | + +---------+ + + | [facility] | | | | + +---------+ + + documented in this encounter Visit Diagnoses Not on filedocumented in this encounter"
--- OUTSIDE RECORDS SUMMARY | ~2019-08-24 | XMS | Encounter Summary ---
Demographics + + + | Address | [address] | | | [place] [address] | + + + | Home Phone [...] + + + | Author | [facility] | | | and [place] | + + + | Organization | [facility] | | | and [place] | + + + | Address | Unknown | + + + | Phone | Unavailable | + + + Support + + + + + | Name | Relationship | Address | Phone | + + + + + | India Tilley | ECON | [address] | | | | | [place], [place] | | | | | [address] | | + + + + + | Yina La | ECON | Unknown | | + + + + + | Yina Peterson | ECON | Unknown | | + + + + + | Leatha Casillas | ECON | Unknown | | + + + + + Care Team Providers + +------+ + | Care Assembler Surgical Garment Name | Role | Phone | + +------+ + | Dangelo Renato Barr DIPESH | PCP | | + +------+ + Encounter Details +--------+ + + + + | Date | Type | Department | Care Team | Description | +--------+ + + + + | 07/12/ | Telephone | [facility] | [facility] | | | 2019 | | CENTER INTRA OP | [address] | | | | | [address] | [place] | | | | | [place], [place] | [place] [address] | | | | | [address] | [phone] | | | | | [phone] | | | +--------+ + + + [...]
--- OUTSIDE RECORDS SUMMARY | ~2019-08-24 | XMS | Encounter Summary ---
Demographics + + + | Address | [address] | | | [place] [address] | + + + | Home Phone [...] | Author | [facility] | | | and [place] | + + + | Organization | [facility] | | | and [place] | + + + | Address | Unknown | + + + | Phone | Unavailable | + + + Support + + + + + | Name | Relationship | Address | Phone | + + + + + | Idnia Tilley | ECON | [address] | | | | | [place], [place] | | | | | [address] | | + + + + + | Yina La | ECON | Unknown | | + + + + + | Yina Peterson | ECON | Unknown | | + + + + + | Leatha Casillas | ECON | Unknown | | + + + + + Care Team Providers + +------+ + | Care Radiator Repairer Name | Role | Phone | [...] | | | | renal | PA-C [address] | [address] [place] [address] | | | | | disease | | [address] | | | | | ([facility]) | [facility] | [address] | | | | | Procedures | [address] | [place] | | | | | [place] OFFICE | [place], | [address] Phone: | | | | | OUTPATIENT | [place] [address] | [phone] | | | | | VISIT 25 | Phone: | Fax: | | | | | MINUTES | [phone] | [phone] | | | | | | Fax: | | | | | | | [phone] | | +--------+--------+ + + + + Encounter Details +--------+ + + + + | Date | Type | Department | Care Team | Description | +--------+ + + + + | 04/25/ | Off-Site | [facility] | Gopi Muñoz | End stage renal | | 2018 | Visit | NEPHROLOGY [address] | M, DO [address] | disease (HCC) | | | | [address] | [place] | (Primary Dx) | | | | [place] | [place] | | | | | [address] | [address] | | | | | [phone] | | | +--------+ + + + [...] + + + | Blood Pressure | 200/100 | 04/25/2018 7:52 PM | | | | | PDT | | + + + + + | Pulse | - | - | | + + + + + | Temperature | 36.7 C (98.1 F) | 04/25/2018 7:52 PM | | | | | PDT [...] this encounter Progress Gopi Pugh DO - 04/25/2018 11:45 AM PDT Subjective: DIALYSIS NOTE Patient ID: Estefani Tilley is a 73 y.o. female. 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 She also has depression, long standing HTN, Type 2 DM, requiring insulin, and CKD/MBD. She has had successful construction of an AVF in her Right arm on 01/04/2018 . She has mult iple complaints including lack of family support, lack of housing, lack of disposable income . I asked her if she has been directly in touch with the CHR at the [facility], and she states that "she has not. " She will not provide a direct answer why she does not confer directly with [facility] for better resources? She de nies acute pain or suicidal ideation. She states that her biggest problem is that her "significant other is dying of metastatic C A." Outpatient Prescriptions Marked as Taking for the 04/25/18 encounter (Off-Site Visit) with Jessie Muñoz, DO Medication Sig Dispense Refill artificial tears (AKWA [...] Med list received from Dr. Womack office 04/19/1 8. Glucose Blood (TRUE METRIX BLOOD GLUCOSE [...] affected area as directed during dressing changes. Is Review of Systems Objective: BP 167/89 | Temp 36.2 C (97.2 F) EDW 73 kg Physical Exam Heart: Regular rate and rhythm with no S3, S4, murmur or rub. Lungs: CTA bilaterally. No rales or wheezes. Abdomen: soft, obese, nontender, NABS. Extremities: 1+ edema, clubbing, cyanosis. right arm AVF has a (+) bruit at the AVF. LAB: BUN 32, Cr 4.28, K+ 4.7, HCO3 25, Ca++ 8.7, phosphorus 5.5, albumin 3.6, PTH 249, Hb 11.0, TSat = 25%, ferritin 145, spKT/V = 1.47. Assessment: 1. ESRD-- clinically, outside of her depression, she appears well dialyzed on 3.5 hours, N 17, 2K +, QB 400, QD 600, thrice weekly. 2. Hypertension-- she admits that she is not taking her antihypertensives as apparently sh e " cannot afford her copayment's? " I discussed with her that uncontrolled BP leads to inc reased risk for stroke or AMI . She is A & O 3 at this time. 3. Anemia secondary CKD--on a positive note, she has responded extremely well to EPO. Her iron stores appear adequate. 4. CKD/MBD-- phosphorus control is recently good. Also PTH was within target on a mainten ance dose of Hectorol. 5. Nutrition--she states that "she cannot afford food recently, for several weeks ." 6. Transplantation--currently , she is too emotionally labile and lack family support. 7. Type 2 DM-- it is unclear whether she is taking her insulin daily? 8. Depression--I think that she could benefit from formal counseling therapy? Plan: 1. Monthly lab was reviewed with the patient. I strongly urged candidate to get in touch with a [place] paper sales representative at the [facility] for some immediate madiha tance. 2. I told her that it's very important to take her labetalol and losartan daily. 3. I also told her that she could benefit from an SSRI and/or A Behavioral Medicine Specia list. Will recheck her in 2 weeks with lab. Again, she did not voice any specific suicidal gulshan ation at this time. However she is chronically depressed and dysphoric here in the [facility]. : [place]. Santos Stephenson MD, [facility] documented in thi s encounter Plan of Treatment Not on filedocumented as of this encounter Visit Diagnoses + + | Diagnosis | + + | End stage renal disease (HCC) - Primary End stage renal disease | + + documented in this encounter
--- OUTSIDE RECORDS SUMMARY | ~2019-08-24 | XMS | Encounter Summary ---
Demographics + + + | Address | [address] | | | [place] [address] | + + + | Home Phone [...] | Author | [facility] | | | and [place] | + + + | Organization | [facility] | | | and [place] | + + + | Address | Unknown | + + + | Phone | Unavailable | + + + Support + + + + + | Name | Relationship | Address | Phone | + + + + + | India Tilley | ECON | [address] | | | | | [place], [place] | | | | | [address] | | + + + + + | Yina La | ECON | Unknown | | + + + + + | Yina Peterson | ECON | Unknown | | + + + + + | Leatha Casillas | ECON | Unknown | | + + + + + Care Team Providers + +------+ + | Care Drug Regulatory Affairs Specialist Name | Role | Phone | [...] | | | | renal | PA-C [address] | [address] [place] [address] | | | | | disease | | [address] | | | | | ([facility]) | CON[facility]ATED | [address] | | | | | Procedures | WAY | [place] | | | | | [place] OFFICE | [place], | [address] Phone: | | | | | OUTPATIENT | [place] [address] | [phone] | | | | | VISIT 25 | Phone: | Fax: | | | | | MINUTES [place] | [phone] | [phone] | | | | | ESRD RELATED | Fax: | | | | | | SVC MONTHLY | [phone] | | | | | | 20&/> YR | | | | | | | OLD 4/> | | | | | | | VISITS | | | +--------+--------+ + + + + Encounter Details +--------+ + + + + | Date | Type | Department | Care Team | Description | +--------+ + + + + | 07/11/ | Off-Site | [facility] | Gopi Muñoz | End stage renal | | 2018 | Visit | NEPHROLOGY [address] | M, DO [address] | disease (HCC) | | | | [address] | [place] | (Primary Dx) | | | | [place], [place] | [place], [place] | | | | | [address] | [address] | | | | | [phone] | | | +--------+ + + + [...]
--- OUTSIDE RECORDS SUMMARY | ~2019-08-24 | XMS | Encounter Summary ---
Demographics + + + | Address | [address] | | | [place] [address] | + + + | Home Phone [...] | Author | [facility] | | | and [place] | + + + | Organization | [facility] | | | and [place] | + + + | Address | Unknown | + + + | Phone | Unavailable | + + + Support + + + + + | Name | Relationship | Address | Phone | + + + + + | India Tilley | ECON | [address] | | | | | [place], [place] | | | | | [address] | | + + + + + | Yina La | ECON | Unknown | | + + + + + | Yina Peterson | ECON | Unknown | | + + + + + | Leatha Casillas | ECON | Unknown | | + + + + + Care Team Providers + +------+ + | Care Recreational Therapist Name | Role | Phone | + +------+ + | Renato villarreal DIPESH | PCP | | + +------+ + Encounter Details +--------+ + + + + | Date | Type | Department | Care Team | Description | +--------+ + + + + | 08/16/ | Telephone | [facility] | Fransisco Johnston MD | | | 2019 | | CENTER INTRA OP | [address] | | | | | [address] | [facility] | | | | | [place], [place] | [place] [address] | | | | | [address] | [phone] | | | | | [phone] | | | +--------+ + + + [...]
--- OUTSIDE RECORDS SUMMARY | ~2019-08-24 | XMS | Encounter Summary ---
Demographics + + + | Address | [address] | | | [place] [address] | + + + | Home Phone | | + + + | Preferred Language | Unknown | + + + | Marital Status | Single | + + + | Mormon Affiliation | Unknown | + + + | Race | Unknown | + + + | Ethnic Group | Unknown | + + + Author + + + | Author | [facility] | | | and [place] | + + + | Organization | [facility] | | | and [place] | + + + | Address | Unknown | + + + | Phone | Unavailable | + + + Support + + + + + | Name | Relationship | Address | Phone | + + + + + | India Tilley | ECON | [address] | | | | | [place], [place] | | | | | [address] | | + + + + + | Yina La | ECON | Unknown | | + + + + + | Yina Peterson | ECON | Unknown | | + + + + + | Leatha Casillas | ECON | Unknown | | + + + + + Care Team Providers + +------+ + | Care Outside Sales Associate Name | Role | Phone | + +------+ + PCP | Unavailable | + +------+ + Encounter Details +--------+ + + + + | Date | Type | Department | Care Team | Description | +--------+ + + + + | 04/16/ | Abstract | [facility] | Darlin Moseley W, | | | 2016 | | NEPHROLOGY [address] | [address] | | | | | [address] | [address] [facility] | | | | | [place] | [place] [address] | | | | | [address] | [phone] | | | | | [phone] | | | +--------+ + + + [...] | EXTERNAL LAB: BUN | Routin | 10/15/2015 | | Results [...] | + +---------+ + + External Lab: BUN (10/15/2015) + +-------+ + + + | [...]
--- OUTSIDE RECORDS SUMMARY | ~2019-08-24 | XMS | Encounter Summary ---
Demographics + + + | Address | [address] | | | [place] [address] | + + + | Home Phone [...] Author | [facility] | | | and Kamaljitana | + + + | Organization | [facility] | | | and [place] | + + + | Address | Unknown | + + + | Phone | Unavailable | + + + Support + + + + + | Name | Relationship | Address | Phone | + + + + + | India Tillye | ECON | [address] | | | | | [place], [place] | | | | | [address] | | + + + + + | Yina La | ECON | Unknown | | + + + + + | Yina Peterson | ECON | Unknown | | + + + + + | Leatha Casillas | ECON | Unknown | | + + + + + Care Team Providers + +------+ + | Care Wetlands Conservation Laborer Name | Role | Phone | + [...] | Surgery | kidney | DO [address] | [address] | | | | | disease, | [place], [place] | [address] | | | | | stage V | [address] [place] | [place], | | | | | ([facility]) | [place] | [place] [address] | | | | | | [address] | Phone: | | | | | | Phone: | [phone] | | | | | | [phone] | Fax: | | | | | | Fax: | [phone] | | | | | | [phone] | | +--------+ + + + + + Encounter Details +--------+---------+ + + + | Date | Type | Department | Care Team | Description | +--------+---------+ + + + | 03/10/ | Office | [facility] | Santos Stephenson | Chronic kidney | | 2018 | Visit | SURGERY [address] | MD Kinga, FACS [address] | disease, stage V | | | | [place], [place] | [address] [facility] | (HCC) (Primary Dx); | | | | [address] | [facility] [place] [address] | Post-operative state | | | | [phone] | [phone] | | | | | | | [...] erent from the original. Patient Identification: Estefani Tilely 1945 Is a 72 y.o. female , [...] She has been going to dialysis in [place], [place] , states things are going well. [...] REPORT: PATIENT NAME : Estefani Tilley EQUIPMENT: [employer] with 10-5 mHertz probe. INDICATIONS: S/P Right [...] RIGHT IJ catheter. Patient to follow with director cardiac and primary care. I will be available [...]
--- OUTSIDE RECORDS SUMMARY | ~2019-08-24 | XMS | Encounter Summary ---
Demographics + + + | Address | [address] | | | [place] [address] | + + + | Home Phone | | + + + | Preferred Language | Unknown | + + + | Marital Status | Single | + + + | Zoroastrian Affiliation | Unknown | + + + | Race | Unknown | + + + | Ethnic Group | Unknown | + + + Author + + + | Author | [facility] | | | and [place]al[place]it[place] | + + + | Organization | [facility] | | | and [place] | + + + | Address | Unknown | + + + | Phone | Unavailable | + + + Support + + + + + | Name | Relationship | Address | Phone | + + + + + | India Tilley | ECON | [address] | | | | | [place], [place] | | | | | [address] | | + + + + + | Yina La | ECON | Unknown | | + + + + + | Yina Peterson | ECON | Unknown | | + + + + + | Leatha Casillas | ECON | Unknown | | + + + + + Care Team Providers + +------+ + | Care Inspector Production Plastic Parts Name | Role | Phone | + [...] Refill | | | | [address] | [place] | | | | | [place] | [address] | | | | | [address] | | | | | | [phone] | | | +--------+--------+ + + + [...]
--- OUTSIDE RECORDS SUMMARY | ~2019-08-24 | XMS | Encounter Summary ---
Demographics + + + | Address | [address] | | | [place] [address] | + + + | Home Phone [...] Author | [facility] | | | and Kamaljitana | + + + | Organization | [facility] | | | and [place] | + + + | Address | Unknown | + + + | Phone | Unavailable | + + + Support + + + + + | Name | Relationship | Address | Phone | + + + + + | India Tilley | ECON | [address] | | | | | [place], [place] | | | | | [address] | | + + + + + | Yina La | ECON | Unknown | | + + + + + | Yina Peterson | ECON | Unknown | | + + + + + | Leatha Casillas | ECON | Unknown | | + + + + + Care Team Providers + +------+ + | Care Tripe Washer Name | Role | Phone | + +------+ + PCP | Unavailable | + +------+ + Encounter Details +--------+ + + + + | Date | Type | Department | Care Team | Description | +--------+ + + + + | 11/08/ | [facility] | [facility] | Provider, | | | 2018 | Exam | MED CTR EXTERNAL | [address] | | | | | IMAGING | [address] | | | | | [phone] | [place] [address] | | +--------+ + + + + [...] for comparison only - no result from [place]. | [facility] | + + + + +---------+ + + | Performing | Address | City/State/Zipcode | Phone Number | | Organization | | | | + +---------+ + + | [facility] | | | | + +---------+ + + documented in this encounter Visit Diagnoses Not on filedocumented in this encounter"
--- OUTSIDE RECORDS SUMMARY | ~2019-08-24 | XMS | Encounter Summary ---
Demographics + + + | Address | [address] | | | [place] [address] | + + + | Home Phone [...] | Author | [facility] | | | and [place] | + + + | Organization | [facility] | | | and [place] | + + + | Address | Unknown | + + + | Phone | Unavailable | + + + Support + + + + + | Name | Relationship | Address | Phone | + + + + + | India Tilley | ECON | [address] | | | | | [place], [place] | | | | | [address] | | + + + + + | Yina La | ECON | Unknown | | + + + + + | Yina Peterson | ECON | Unknown | | + + + + + | Leatha Casillas | ECON | Unknown | | + + + + + Care Team Providers + +------+ + | Care Webbing Tacker Name | Role | Phone | + +------+ + PCP | Unavailable | + +------+ + Encounter Details +--------+ + + + + | Date | Type | Department | Care Team | Description | +--------+ + + + + | 12/27/ | Documentati | [facility] | Gopi Muñoz | | | 2019 | on | NEPHROLOGY [address] | M, DO [address] | | | | | [address] | [place] | | | | | [place], [place] | [place] | | | | | [address] | [address] | | | | | [phone] | | | +--------+ + + + [...] Progress Tatiana Gamble - 12/27/2018 9:13 AM [facility] order, sign ed and dated 12/23/[address] Muñoz. Sent to scan. documented in this encounter Plan of Treatment Not on filedocumented as of this encounter Visit Diagnoses Not on filedocumented in this encounter"
--- OUTSIDE RECORDS SUMMARY | ~2019-08-24 | XMS | Encounter Summary ---
Demographics + + + | Address | [address] | | | [place] [address] | + + + | Home Phone [...] + + + | Author | [facility] | | | and [place]it[place] | + + + | Organization | [facility] | | | and [place] | + + + | Address | Unknown | + + + | Phone | Unavailable | + + + Support + + + + + | Name | Relationship | Address | Phone | + + + + + | India Campos | ECON | [address] | | | | | [place], [place] | | | | | [address] | | + + + + + | Yina La | ECON | Unknown | | + + + + + | Yina Peterson | ECON | Unknown | | + + + + + | Leatha Casillas | ECON | Unknown | | + + + + + Care Team Providers + +------+ + | Care Enterprise Systems Architect Name | Role | Phone | [...] + + | 10/01/ | Hospital | [facility] | Olegario Peng, | Hypertensive | | 2018 - | Encounter | MED CTR MEDICAL | [address] | emergency; Chest | | | | [address] [place] | [place] | pain, unspecified | | 10/06/ | | [place] [address] | [address] | type; Leg swelling; | | 2017 | | [phone] | | CKD (chronic kidney | | | | | Rupal Laguna MD | disease), stage IV | | | | | [address] | (HCC); Type 2 | | | | | [place] | diabetes mellitus | | | | | [address] | with stage 4 chronic | | | | | | kidney disease, | | | | | Nikhil Vega, | with long-term | | | | | MD Mayelin [address] | current use of | | | | | [address] [place] | insulin (HCC); | | | | | [place] [address] | Anemia of chronic | | | | | [phone] | renal failure, stage | | | [...] Keys MD - 10/06/2017 10:38 AM PST [facility] DISCHARGE SUMMARY Pt. Name/Age/: Estefani Campos 72 [...] Specialty: Nephrology Why: at 4:30PM, at the [facility], [address], [place], [place], ([phone]). Contact information: [address] [facility] [address] [facility] [address] Santos Stephenson MD, FACS In 2 weeks. Specialties: General Surgery, Vascular Surgery Why: Dr. Stephenson's Office, the Vascular Surgeon, will Call you with the time.* Contact information: [address] [facility] [address] RESULTS: Narrative TECHNIQUE: Renal and bladder [...] pressures were in the 230 range at [facility] and she received IV hydralazine and [...] signed by: Edison Keys MD, 10/06/2017 10:48 [facility] Portions of this chart may have been created with [employer] voice recognition software. Occasi onal wrong-word or [...] your Appt. with Dr. Muñoz at the [facility]. 2. Dr. Stephenson Office, the Vascular Surgeon, [...] to come to the [facility] at [place], [place] for follow up on 11/08/17. We sent a Referral to Dr. Stephenson's Office for an outpt appt. for an AVF construction in the very near future. They will call her with the Appt. time per [facility] policy. Will attempt to wait until AVF is mature before starting outpt HD, as long as uremic sympto ms do not intervene. Thanks. [facility] Edison Andrea M D - 10/05/2017 2:20 PM PST [facility] Hospitalist Progress Note Estefani Campos is [...] that she should be followed by a psychometrician night discussed this issue with her. I [...] as outlined above. Edison Keys 10/05/2017 14:20 [facility] Portions of this chart may have been created with [employer] voice recognition software. Occasi onal wrong-word or sound-alike substitutions may have occurred due to the inherent mckeon itations of voice recognition software. Please read the chart carefully and recognize, using context, where these substitutions have occurred Mayelin Sanders MD - 10/04/2017 5:37 PM PST [facility] [place] [facility] HOSPITALIST PROGRESS NOTE Patient: Estefani Campos : 1945: Age: 72 y.o. MedRec: [id number] Admission date: 10/01/2017 Hospital day # : [...] Procedure Component Value Units Date/Time Culture, MRSA [[id number]] Collected: 10/02/17 0803 Order Status: Completed Lab [...] follow up and compliance FEN: DM, cardiac, JUAN, 1L fluid restrict PPx: sub q hep, SCDs Code: FULL Mayelin Vega MD 10/04/2017 17:38 [facility] Portions of this chart may have been created with [employer] voice recognition software. Occasi onal wrong-word or [...] performed and electronically signed by Puja Whitman, User Experience Team Lead 2017 10:09 Electronically signed by: Ta Ronquillo RPH 10/04/2017 10:14 Diann Sanders MD - 10/03/2017 12:46 PM PST [facility] [place] HOSPITALIST PROGRESS NOTE Patient: Estefani Campos : 1945: Age: 72 y.o. MedRec: [id number] Admission date: 10/01/2017 Hospital day # : [...] Procedure Component Value Units Date/Time Culture, MRSA [[id number]] Collected: 10/02/17 0803 Order Status: Completed Lab [...] Code: FULL Mayelin Vega MD 10/03/2017 12:46 [facility] Portions of this chart may have been created with [employer] voice recognition software. Occasi onal wrong-word or sound-alike substitutions may have occurred due to the inherent mckeon itations of voice recognition software. Please read the chart carefully and recognize, using context, where these substitutions have occurred ayelin Engle MD - 10/02/2017 9:13 AM PSTFormatting of this note might be different from the or iginal. [facility] [place] HOSPITALIST PROGRESS NOTE Patient: Estefani Campos : 1945: Age: 72 y.o. MedRec: [id number] Admission date: 10/01/2017 Hospital day # : [...] day Rupal Laguna MD 5,000 Units at 10/01/172157 HYDROcodone-acetaminophen [...] ECGs available Confirmed by KEN ELLISON MD ([id number]) on 10/02/2017 7:49:20 AM Lipid Panel Collection [...] Procedure Component Value Units Date/Time Culture, MRSA [[id number]] Collected: 10/02/17802 Order Status: Sent Lab Status: [...] is in the process of establishing with [facility]. Additionally, she reports being homeless up until [...] with tele Mayelin Vega MD 10/02/2017 9:13 [facility] Portions of this chart may have been created with [employer] voice recognition software. Occasi onal wrong-word or [...] + | [facility] | [address] | [place] | [phone] | | [facility] | | [address] | | | - LABORATORY | | [...] [address] | [place] | [phone] | | [facility] | | [address] | | | - LABORATORY | | [...] mL/min/1.73m2 | [facility] | | | [place] | | | MEDICAL | | | [...] [address] | [place] | [phone] | | [facility] | | [address] | | | - LABORATORY | | [...] + | [facility] | [address] | [place] | [phone] | | [facility] | | [address] | | | - LABORATORY | | [...] | | POC | | | [facility] | | | | | [...] ST. | [address] | [place] | [phone] | | [facility] | | [address] | | | - LABORATORY | | [...] [address] | [place] | [phone] | | [facility] | | [address] | | | - LABORATORY | | [...] + | [facility] | [address] | [place] | [phone] | | [facility] | | [address] | | | - LABORATORY | | [...] + | [facility] | [address] | [place] | [phone] | | [facility] | | [address] | | | - LABORATORY | | [...] ST. | [address] | [place], [place] | [phone] | | [facility] | | [address] | | | - LABORATORY | | [...] [address] | [place] | [phone] | | [facility] | | [address] | | | - LABORATORY | | [...] [address] | [place] | [phone] | | [facility] | | [address] | | | - LABORATORY | | [...] AE | | | | | | [facility] | | | | | | [...] + | [facility] | [address] | [place] | [phone] | | [facility] | | [address] | | | - LABORATORY | | [...] ST. | [address] | [place], [place] | [phone] | | [facility] | | [address] | | | - LABORATORY | | [...] [address] | [place] | [phone] | | [facility] | | [address] | | | - LABORATORY | | [...] 3.11 (H) | 0.60 - 1.30 | [facility] | | | | | mg/dL | [facility] | | | | | | MEDICAL | | | | | | CENTER - | | | | | | LABORATORY | | + + + + + + | eGFR if not | 15 (L)Comment: | >=60 | [facility] | | | | GLOMERULAR FILTRATION | mL/min/1.73m2 | [facility] | | | [place] | RATE,ESTIMATED | | MEDICAL | | | | mL/min/1.11i2Pxgx than | | CENTER - | | [...] [address] | [place] | [phone] | | [facility] | | [address] | | | - LABORATORY | | [address] | [place] | [phone] | | [facility] | | [address] | | | - LABORATORY | | [...] [address] | [place] | [phone] | | [facility] | | [address] | | | - LABORATORY | | [...] + | [facility] | [address] | [place] | [phone] | | [facility] | | [address] | | | - LABORATORY | | [...] | | | POC | | | [facility] | | | | | [...] + | [facility] | [address] | [place] | [phone] | | [facility] | | [address] | | | - LABORATORY | | [...] [address] | [place] | [phone] | | [facility] | | [address] | | | - LABORATORY | | [...] [address] | [place] | [phone] | | [facility] | | [address] | | | - LABORATORY | | [...] mL/min/1.73m2 | [facility] | | | [place] | RATE,ESTIMATED | | MEDICAL | | | | mL/min/1.91v2Oxue than | | CENTER - | | [...] [address] | [place] | [phone] | | [facility] | | [address] | | | - LABORATORY | | [...] [address] | [place] | [phone] | | [facility] | | [address] | | | - LABORATORY | | [...] [address] | [place] | [phone] | | [facility] | | [address] | | | - LABORATORY | | [...] 3.13 (H) | 0.60 - 1.30 | [facility] | | | | | mg/dL | [facility] | | | | | | MEDICAL | | | | | | CENTER - | | | | | | LABORATORY | | + + + + + + | eGFR if not | 15 (L)Comment: | >=60 | [facility] | | | | GLOMERULAR FILTRATION | mL/min/1.73m2 | [facility] | | | [place] | RATE,ESTIMATED | | MEDICAL | | | | mL/min/1.98o2Fbug than | | CENTER - | | [...] + | [facility] | [address] | [place] | [phone] | | [facility] | | [address] | | | - LABORATORY | | [...] ST. | [address] | [place], [place] | [phone] | | [facility] | | [address] | | | - LABORATORY | | | | + + + + + VAS Lower Extremity Venous Bilateral (10/02/2017 10:07 AM [facility]) + + | Specimen | + [...] 454 R | | | Patient Number [id number] Date of Study | | | 10/02/2017 Visit Number [id number] Accession | | | [id number] Referring Physician LOY RUPAL Number | | | Date of 1945 Apple Picker | | | WENDY HUDSON | | | CEASAR Age 72 year(s) | | | Interpreting CLAUDIA HUGHES MD | | | Manager Shift Gender | | | Female Nurse | | | Stress Analytical Technician Procedure Type of Study TTE procedure: ECHO [...] | 71.7 ml | | | EF Mkasrjblq94% Left Ventricle Diastolic Dimension: 5.37 cm | [...] Volume: 71.7 ml | | | EF Yopxdpbqd23% | | | | | | Left [...] Jordan Results In - 10/02/2017 9:41 AM [facility] Transthoracic Echocardiography Report | | (TTE) Demographics Patient Name ANDRES BULLOCK Room Number 454 | | R Patient Number [id number] Date of Study 10/02/2017 Visit Number | | [id number] Referring Physician LOY MATA Number | | Date of 1945 Apple Picker WENDY BECCA | | [facility] Age 72 year(s) Interpreting | | CLAUDIA [place]ES MD Manager Shift Gender | | Female Nurse Stress TechnicianProcedureType [...] LA Volume: 71.7 ml EF | | Zoirogcgq94% Left Ventricle Diastolic Dimension: 5.37 cm Septum [...] LA Volume: 71.7 ml | | EF Cnpgijuji15% | | | | Left Ventricle | [...] [address] | [place] | [phone] | | [facility] | | [address] | | | - LABORATORY | | [...] + | [facility] | [address] | [place] | [phone] | | [facility] | | [address] | | | - LABORATORY | | [...] [address] | [place] | [phone] | | [facility] | | [address] | | | - LABORATORY | | [...] ST. | [address] | [place] | [phone] | | [facility] | | [address] | | | - LABORATORY | | [...] | | | | | | [employer] | | | | | [...] [address] | [place] | [phone] | | [facility] | | [address] | | | - LABORATORY | | [...] ST. | [address] | [place], [place] | [phone] | | [facility] | | [address] | | | - LABORATORY | | [...] 3.03 (H) | 0.60 - 1.30 | [facility] | | | | | mg/dL | [facility] | | | | | | MEDICAL | | | | | | CENTER - | | | | | | LABORATORY | | + + + + + + | eGFR if not | 15 (L)Comment: | >=60 | [facility] | | | | GLOMERULAR FILTRATION | mL/min/1.73m2 | [facility] | | | [place] | RATE,ESTIMATED | | MEDICAL | | | | mL/min/1.60s6Iwtt than | | CENTER - | | [...] + | [facility] | [address] | [place] | [phone] | | [facility] | | [address] | | | - LABORATORY | | [...] + | [facility] | [address] | [place] | [phone] | | [facility] | | [address] | | | - LABORATORY | | [...] | | | | KEN ELLISON MD ([id number]) | | | | | | on [...] [address] | [place] | [phone] | | [facility] | | [address] | | | - LABORATORY | | [...] | | | | | | [employer] | | | | | [...] ST. | [address] | [place], [place] | [phone] | | [facility] | | [address] | | | - LABORATORY | | [address] | [place] | [phone] | | [facility] | | [address] | | | - LABORATORY | | [...] [address] | [place] | [phone] | | [facility] | | [address] | | | - LABORATORY | | [...] (H) | 7 - 18 mg/dL | [facility] | | | | | | [facility] | | | | | | MEDICAL | | | | | | CENTER - | | | | | | LABORATORY | | + + + + + + | Creatinine | 3.05 (H) | 0.60 - 1.30 | [facility] | | | | | mg/dL | [facility] | | | | | | MEDICAL | | | | | | CENTER - | | | | | | LABORATORY | | + + + + + + | eGFR if not | 15 (L)Comment: | >=60 | [facility] | | | | GLOMERULAR FILTRATION | mL/min/1.73m2 | [facility] | | | [place]AMBIAN | RATE,ESTIMATED | | MEDICAL | | | | mL/min/1.53u1Misl than | | CENTER - | | [...] + | [facility] | [address] | [place] | [phone] | | [facility] | | [address] | | | - LABORATORY | | [...] ST. | [address] | [place] | [phone] | | [facility] | | [address] | | | - LABORATORY | | [...] | | | | First dose on [facility] 10/05/17 at 1445 | | AM [...] | | | | | NPO, Daytime [id number] Use NIGHT | | | | | | | DOSE for doses scheduled: | | | | | | | HS, 3AM, Nighttime [id number], | | | | | | + [...] DAILY, First dose | | | on [facility] 10/07/17 at 0900 | | + +---+ | | | + +---+ + +-------+ +-------+---+---+ | losartan (COZAAR) tablet 50 mg | Given | 10/05/19 | 50 mg | | | | 50 mg, Oral, 2 TIMES DAILY, | | 18 8:27 | | | | | First dose on [facility] 10/03/17 at 0930 | | AM PST [...]
--- OUTSIDE RECORDS SUMMARY | ~2019-08-24 | XMS | Encounter Summary ---
Demographics + + + | Address | [address] | | | [place] [address] | + + + | Home Phone [...] Author | [facility] | | | and [place] | + + + | Organization | [facility] | | | and [place] | + + + | Address | Unknown | + + + | Phone | Unavailable | + + + Support + + + + + | Name | Relationship | Address | Phone | + + + + + | India Tilley | ECON | [address] | | | | | [place], [place] | | | | | [address] | | + + + + + | Yina La | ECON | Unknown | | + + + + + | Yina Peterson | ECON | Unknown | | + + + + + | Leatha Casillas | ECON | Unknown | | + + + + + Care Team Providers + +------+ + | Care Cosmetics Machine Operator Name | Role | Phone [...] | CONVERSION [address]P [address] | MD [address] [facility] | | | | | [address] | [place], [place] | | | | | [place], [place] | [address] | | | | | [address] | | | | | | [phone] | | | +--------+ + + + [...]
--- OUTSIDE RECORDS SUMMARY | ~2019-08-24 | XMS | Encounter Summary ---
Demographics + + + | Address | [address] | | | [place] [address] | + + + | Home Phone | | + + + | Preferred Language | Unknown | + + + | Marital Status | Single | + + + | Sabianism Affiliation | Unknown | + + + | Race | Unknown | + + + | Ethnic Group | Unknown | + + + Author + + + | Author | [facility] | | | and [place] | + + + | Organization | [facility] | | | and [place] | + + + | Address | Unknown | + + + | Phone | Unavailable | + + + Support + + + + + | Name | Relationship | Address | Phone | + + + + + | India Tilley | ECON | [id number] | | | | | [place], [place] | | | | | [address] | | + + + + + | Yina La | ECON | Unknown | | + + + + + | Yina Peterson | ECON | Unknown | | + + + + + | Leatha Casillas | ECON | Unknown | | + + + + + Care Team Providers + +------+ + | Care Reinforcing Iron Worker Helper Name | Role | Phone | [...] | +--------+ + + + + | 06/01/ | Telephone | [facility] [place] | Darlin Moseley W, | Nephrology | | 2017 | | NEPHROLOGY [address] | [address] | Appointment | | | | [facility] | [address] [place] | | | | | [place] | [place] [address] | | | | | [address] | [phone] | | | | | [phone] | | | +--------+ + + + [...]
--- OUTSIDE RECORDS SUMMARY | ~2019-08-24 | XMS | Encounter Summary ---
Demographics + + + | Address | [address] | | | [place] [address] | + + + | Home Phone | | + + + | Preferred Language | Unknown | + + + | Marital Status | Single | + + + | Judaism Affiliation | Unknown | + + + | Race | Unknown | + + + | Ethnic Group | Unknown | + + + Author + + + | Author | [facility] | | | and [place] | + + + | Organization | [facility] | | | and [place] | + + + | Address | Unknown | + + + | Phone | Unavailable | + + + Support + + + + + | Name | Relationship | Address | Phone | + + + + + | India Tilley | ECON | [address] | | | | | [place], [place] | | | | | [address] | | + + + + + | Yina La | ECON | Unknown | | + + + + + | Yina Peterson | ECON | Unknown | | + + + + + | Leatha Casillas | ECON | Unknown | | + + + + + Care Team Providers + +------+ + | Care Sliver Lap Machine Tender Name | Role | Phone | + [...] + | 01/03/ | Telephone | [facility] | Santos Stephenson | Surgery Appointment | | 2018 | | SURGERY [address] | MD Kinga, FACS [address] | | | | | [place], [place] | [address] [facility] | | | | | [address] | [place] [address] | | | | | [phone] | [phone] | | | | | | | [...]
--- OUTSIDE RECORDS SUMMARY | ~2019-08-24 | XMS | Encounter Summary ---
Demographics + + + | Address | [address] | | | [place] [address] | + + + | Home Phone [...] + + | Author | [facility] | | | and [place] | + + + | Organization | [facility] | | | and [place] | + + + | Address | Unknown | + + + | Phone | Unavailable | + + + Support + + + + + | Name | Relationship | Address | Phone | + + + + + | India Tilley | ECON | [address] | | | | | [place], [place] | | | | | [address] | | + + + + + | Yina La | ECON | Unknown | | + + + + + | Yina Peterson | ECON | Unknown | | + + + + + | Leatha Casillas | ECON | Unknown | | + + + + + Care Team Providers + +------+ + | Care Firearms Assembly Supervisor Name | Role | Phone | [...] | | | | [place] | [address] | | | | | [address] | | | | | | [phone] | | | +--------+ + + + [...]
--- OUTSIDE RECORDS SUMMARY | ~2019-08-24 | XMS | Encounter Summary ---
Demographics + + + | Address | [address] | | | [place] [address] | + + + | Home Phone [...] | Author | [facility] | | | and [place] | + + + | Organization | [facility] | | | and [place] | + + + | Address | Unknown | + + + | Phone | Unavailable | + + + Support + + + + + | Name | Relationship | Address | Phone | + + + + + | India Tilley | ECON | [address] | | | | | [place], [place] | | | | | [address] | | + + + + + | Yina La | ECON | Unknown | | + + + + + | Yina Peterson | ECON | Unknown | | + + + + + | Leatha Casillas | ECON | Unknown | | + + + + + Care Team Providers + +------+ + | Care Judicial Administrative Assistant Name | Role | Phone | + +------+ + PCP | Unavailable | + +------+ + Reason for Visit + + + | Reason | Comments | + + + | Appointment | | + + + Encounter Details +--------+ + + + + | Date | Type | Department | Care Team | Description | +--------+ + + + + | 01/05/ | Telephone | [facility] | Santos Stephenson | Appointment | | 2017 | | SURGERY [address] | MD Kinga, FACS [address] | | | | | [place], [place] | [address] [facility] | | | | | [address] | [place] [address] | | | | | [phone] | [phone] | | | | | | | [...]
--- OUTSIDE RECORDS SUMMARY | ~2019-08-24 | XMS | Encounter Summary ---
Demographics + + + | Address | [address] | | | [place] [address] | + + + | Home Phone [...] Author | [facility] | | | and [place] | + + + | Organization | [facility] | | | and [place] | + + + | Address | Unknown | + + + | Phone | Unavailable | + + + Support + + + + + | Name | Relationship | Address | Phone | + + + + + | India Tilley | ECON | [address] | | | | | [place], [place] | | | | | [address] | | + + + + + | Yina La | ECON | Unknown | | + + + + + | Yina Peterson | ECON | Unknown | | + + + + + | Leatha Casillas | ECON | Unknown | | + + + + + Care Team Providers + +------+ + | Care Watch Manufacturing Supervisor Name | Role | Phone [...] | | | | [place] | [address] | | | | | [address] | | | | | | [phone] | | | +--------+ + + + [...]
--- OUTSIDE RECORDS SUMMARY | ~2019-08-24 | XMS | Encounter Summary ---
Demographics + + + | Address | [address] | | | [place] [address] | + + + | Home Phone [...] | Author | [facility] | | | and [place] | + + + | Organization | [facility] | | | and [place] | + + + | Address | Unknown | + + + | Phone | Unavailable | + + + Support + + + + + | Name | Relationship | Address | Phone | + + + + + | India Tilley | ECON | [address] | | | | | [place], [place] | | | | | [address] | | + + + + + | Yina La | ECON | Unknown | | + + + + + | Yina Peterson | ECON | Unknown | | + + + + + | Leatha Casillas | ECON | Unknown | | + + + + + Care Team Providers + +------+ + | Care Oil And Gas Specialist Name | Role | Phone | [...] + + | 04/03/ | Telephone | [place] | Michelle Lopez | Hospital Follow-up | | 2019 | | Internal Medicine | DO [address] | | | | | Hospitalists [address] | | | | | [address] [place] | [place] [address] | | | | | [address] | [phone] | | | | | [phone] | | | +--------+ + + + [...]
--- OUTSIDE RECORDS SUMMARY | ~2019-08-24 | XMS | Encounter Summary ---
Demographics + + + | Address | [address] | | | [place] [address] | + + + | Home Phone [...] + | Author | [facility] | | | and [place] | + + + | Organization | [facility] | | | and [place] | + + + | Address | Unknown | + + + | Phone | Unavailable | + + + Support + + + + + | Name | Relationship | Address | Phone | + + + + + | India Tilley | ECON | [address] | | | | | [place], [place] | | | | | [address] | | + + + + + | Yina La | ECON | Unknown | | + + + + + | Yina Peterson | ECON | Unknown | | + + + + + | Leatha Casillas | ECON | Unknown | | + + + + + Care Team Providers + +------+ + | Care Uniformer Name | Role | Phone | + [...] | [address] | [place] | initial encounter | | | | [place] | [address] | ([facility]) (Primary Dx); | | | | [address] | | Right hip pain; H/O | | | | [phone] | | major orthopedic | | | [...]
--- OUTSIDE RECORDS SUMMARY | ~2019-08-24 | XMS | Encounter Summary ---
Demographics + + + | Address | [address] | | | [place] [address] | + + + | Home Phone [...] [facility] | | | and [place] | + + + | Organization | [facility] | | | and [place] | + + + | Address | Unknown | + + + | Phone | Unavailable | + + + Support + + + + + | Name | Relationship | Address | Phone | + + + + + | India Tilley | ECON | [address] | | | | | [place], [place] | | | | | [address] | | + + + + + | Yina La | ECON | Unknown | | + + + + + | Yina Peterson | ECON | Unknown | | + + + + + | Leatha Casillas | ECON | Unknown | | + + + + + Care Team Providers + +------+ + | Care Airport Security Screener Name | Role | Phone | + [...] | | | | | ([facility]) | | | +--------+--------+ + + + + Encounter Details +--------+ + + + + | Date | Type | Department | Care Team | Description | +--------+ + + + + | 12/04/ | Anesthesia | [facility] | Petros Garrido | | | 2019 | Event | MED CTR OR INTRA OP | MD Zuleima [address] | | | | | [address] | [address] [place] | | | | | [place], [place] | [place] [address] | | | | | [address] | [phone] | | | | | [phone] | | | +--------+ + + + [...] +----+---+ + + | | 1 | [place] | | | | 6 | 43-degrees | | | | 3 | | | | | 1 | | | +----+---+ + + | | 1 | First | | | | 6 | Inc/Proc St | | | | 3 | | | | | 4 | | | +----+---+ + + | | 1 | [place] off | | | | 6 | [...] | alysis | Chlorhexidine/Isopropyl Alcohol; | Wendy hZu RN | User Epic | | | [...] 12/09/18 182 by | | eral | negv-ysu-tqyjcz catheter system; | Priti Burleson RN | [...] | | | | | Breath, Starting [place] 12/04/18 at | | PM PDT | | | | | 1701, Anesthesia Intra-op | | | | | | + +--------+ +---------+------+------+ +---+---+ | | | +---+---+ + +-------+ +-----+---+---+ | ceFAZolin (ANCEF, KEFZOL) | Given | 12/05/19 | 1 g | | | | injection Intravenous, PRN, | | 19 4:20 | | | | | Starting [place] 12/04/18 at 1620, | | PM PDT [...] 4:04 | | | | | Starting [place] 12/04/18 at 1604, | | PM PDT [...] | | | | | PRN, Starting [place] 12/04/18 at | | PM PDT | [...] 4:14 | | | | | Starting [place] 12/04/18 at 1614, | | PM PDT | | | | | Anesthesia Intra-op | | | | | | + +-------+ +--------+---+---+ +---+---+ | | | +---+---+ documented in this encounter"
--- OUTSIDE RECORDS SUMMARY | ~2019-08-24 | XMS | Encounter Summary ---
Demographics + + + | Address | [address] | | | [place] [address] | + + + | Home Phone [...] | Author | [facility] | | | and [place] | + + + | Organization | [facility] | | | and [place] | + + + | Address | Unknown | + + + | Phone | Unavailable | + + + Support + + + + + | Name | Relationship | Address | Phone | + + + + + | India Tilley | ECON | [address] | | | | | [place], [place] | | | | | [address] | | + + + + + | Yina La | ECON | Unknown | | + + + + + | Yina Peterson | ECON | Unknown | | + + + + + | Leatha Casillas | ECON | Unknown | | + + + + + Care Team Providers + +------+ + | Care Piercing Specialist Name | Role | Phone | + +------+ + PCP | Unavailable | + +------+ + Encounter Details +--------+ + + + + | Date | Type | Department | Care Team | Description | +--------+ + + + + | 05/12/ | Hospital | [facility] | | | | 2006 - | Encounter | MED CTR CANCER | | | | | | CENTER [facility] [address] | | | | 05/13/ | | [place] | | | | 2006 | | [address] | | | | | | [phone] | | | +--------+ + + + [...]
--- OUTSIDE RECORDS SUMMARY | ~2019-08-24 | XMS | Encounter Summary ---
Demographics + + + | Address | [address] | | | [place] [address] | + + + | Home Phone | | + + + | Preferred Language | Unknown | + + + | Marital Status | Single | + + + | Jehovah'S Witness Affiliation | Unknown | + + + | Race | Unknown | + + + | Ethnic Group | Unknown | + + + Author + + + | Author | [facility] | | | and [place] | + + + | Organization | [facility] | | | and [place] | + + + | Address | Unknown | + + + | Phone | Unavailable | + + + Support + + + + + | Name | Relationship | Address | Phone | + + + + + | India Tilley | ECON | [address] | | | | | [place], [place] | | | | | [address] | | + + + + + | Yina La | ECON | Unknown | | + + + + + | Yina Peterson | ECON | Unknown | | + + + + + | Leatha Casillas | ECON | Unknown | | + + + + + Care Team Providers + +------+ + | Care Safety Technician Name | Role | Phone | + +------+ + PCP | Unavailable | + +------+ + Encounter Details +--------+ + + + + | Date | Type | Department | Care Team | Description | +--------+ + + + + | 02/26/ | Hospital | [facility] | Patricia, | | | 2006 - | Encounter | MED CTR CANCER | Venkatesh Forte MD [address] | | | | | [place] [address] | [facility] | | | 03/12/ | | [place] | [place] [address] | | | 2006 | | [address] | [phone] | | | | | [phone] | | | +--------+ + + + [...]
--- OUTSIDE RECORDS SUMMARY | ~2019-08-24 | XMS | Encounter Summary ---
Demographics + + + | Address | [address] | | | [place] [address] | + + + | Home Phone [...] Author | [facility] | | | and [place] | + + + | Organization | [facility] | | | and [place] | + + + | Address | Unknown | + + + | Phone | Unavailable | + + + Support + + + + + | Name | Relationship | Address | Phone | + + + + + | India Tilley | ECON | [address] | | | | | [place], [place] | | | | | [address] | | + + + + + | Yina La | ECON | Unknown | | + + + + + | Yina Peterson | ECON | Unknown | | + + + + + | Leatha Casillas | ECON | Unknown | | + + + + + Care Team Providers + +------+ + | Care Bingo Clerk Name | Role | Phone | + +------+ + | Renato Pierson PAINT AND TABLE EDGER | PCP | | + +------+ + [...] | | disease) on | [address] | [place], [place] | | | | | dialysis | [address] | [address] | | | | | ([facility]) | [address] | Phone: | | | | | Procedures | [place], [place] | [phone] | | | | | [place] | [address] | Fax: | | | | | Dialysis | Phone: | | | | | | Circuit | [phone] | | | | | | | Fax: | | | | | | | [phone] | | + +--------+ + + + + Reason for Visit + + + | Reason | Comments | + + + | Procedure | | + + + Encounter Details +--------+ + + + + | Date | Type | Department | Care Team | Description | +--------+ + + + + | 07/31/ | Telephone | [facility] | Louise Fink, | Procedure | | 2019 | | VASCULAR SURGERY | RN | | | | | [address] | | | | | | [place] | | | | | | [address] | | | | | | [phone] | | | +--------+ + + + [...] of this encounter Plan of Treatment + +---------+--------+ [...] Expires: | | | | | dialysis (HCC) | 07/31/2020 | + +---------+--------+ + + documented as of this encounter Visit Diagnoses + + | Diagnosis | + + | ESRD (end stage renal disease) on dialysis (HCC) - Primary End stage renal disease | + + documented in this encounter"
--- OUTSIDE RECORDS SUMMARY | ~2019-08-24 | XMS | Encounter Summary ---
Demographics + + + | Address | [address] | | | [place] [address] | + + + | Home Phone [...] | Author | [facility] | | | and [place] | + + + | Organization | [facility] | | | and [place] | + + + | Address | Unknown | + + + | Phone | Unavailable | + + + Support + + + + + | Name | Relationship | Address | Phone | + + + + + | India Tilley | ECON | [address] | | | | | [place], [place] | | | | | [address] | | + + + + + | Yina La | ECON | Unknown | | + + + + + | Yina Peterson | ECON | Unknown | | + + + + + | Leatha Casillas | ECON | Unknown | | + + + + + Care Team Providers + +------+ + | Care Driveway Sealer Name | Role | Phone | + [...] Required | | deconditioni | DO [address] | | | | | | ng Anemia | [place], [place] | | | | | | of chronic | [address] | | | | | | renal | [place], [place] | | | | | | failure, | [address] | | | | | | stage 5 | Phone: | | | | | | ([facility]) | [phone] | | | | | | Closed | Fax: | | | | | | fracture of | [phone] | | | | | | right [...] | | | | | | | ([facility]) | | | +--------+--------+ + + + + Encounter Details +--------+ + + + + | Date | Type | Department | Care Team | Description | +--------+ + + + + | 12/04/ | Hospital | [facility] | Nick Mendoza MD | Closed fracture of | | 2019 - | Encounter | MED CTR SUR[facility] | [address] | neck of right femur, | | | | [address] [place] | [place] | initial encounter | | 12/09/ | | [place] [address] | [address] | ([facility]) (Primary Dx); | | 2019 | | [phone] | | Non-compliance; End | | | | | Scott Koroma MD | stage renal disease | | | | | [address] | ([facility]); Type 2 | | | | | [place], [place] | diabetes mellitus | | | | | [address] | with stage 4 chronic | | | | | | kidney disease, | | | | | | with long-term | | | | | | current use of | | | | | | insulin ([facility]); | | | | | | Closed fracture of | | | | | | right hip, initial | | | | | | encounter ([facility]); | | | | | | Type 2 DM with CKD | | | | | | stage 5 and | | | | | | hypertension ([facility]); | | | | | | Renal bone disease; | | | | | | Physical | | | | | | deconditioning; | | | | | | Anemia of chronic | | | | | | renal failure, stage | | | | | | 5 ([facility]); Closed | | | | | | [...] signed by: Scott Koroma, 12/20/2018 12:05 [facility] by Scott Koroma MD at 05/2019 12:10 PM PDTdocumented in this encounter Discharge Instructions Instructions Gopi Muñoz DO - . Please keep your old HD appt. at [facility] for 12/12/2018. 2. Call our Office if you change your mind and wish to go to [facility] , for further R ehab. 3. [...] might be d ifferent from the original. [facility] [address] [place] [address] PROGRESS NOTE Pt. Name/Age/: Estefani Tilley 73 y.o. 1945 Med. Record Number: [id number] Date of admission: 12/04/2018 NEPHROLOGY HPI - [...] Lungs: Prolonged expiratory phase, with findings of [place] rales lower 1/4 both lungs. Abdomen: Soft, [...] HD tomorrow and assess for DC soon. [facility] Amol Green MD - 12/08/2018 3:29 PM [...] going to any Rehab. Ctr after DC. [facility] Scott Tadeo MD - 12/07/2018 8:56 AM [...] Hassan DO - 12/06/2018 5:33 PM PDT [facility] [address] [place] [address] PROGRESS NOTE Pt. Name/Age/: Estefani Tilley 73 y.o. 1945 Med. Record Number: [id number] Date of admission: 12/04/2018 NEPHROLOGY HPI - [...] Lungs: Prolonged expiratory phase, with findings of [place] rales lower 1/4 both lungs. Abdomen: Soft, [...] to go home when felt ap propriate [facility] Scott Tadeo MD - 12/06/2018 8:02 AM [...] directions X Pharmacy list names: Mayco Johnson ([place]) X Outside Information Vaccines up to date? [...] did not want to answer medication history finishing lab technician's questions; barely verifie d her name. Answered questions with head nods or patients stating that she was not taking a medication. Medication: Prior to Admission Sig: Patient taking differently CLIN NURSE SPEC as: Atorvastatin 20 mg tablet Take 1 [...] idea what this medication was Best possible CLIN NURSE SPEC medication list after pharmacy review: PT REPORTED [...] into the vein Three times a w [place]. Historical Provider, epoetin karthik (EPOGEN, PROCRIT) 10,000 [...] performed and electronically signed by Kerry Jordan, Billing Machine Operator 12/05/2018 14:45 Reviewed by Flora Watts, PharmD 12/05/2018 15:51 Scott Tadeo MD - 12/05/2018 7:41 AM PDT Patient feels better than yest Vitals: 12/05/18 0731 BP: 152/71 Pulse: 67 Resp: 16 Temp: 36.4 C (97.6 F) Intake/Output Summary (Last 24 hours) at 12/05/18 0733 Last data filed at 12/05/18 1914 Gross per 24 hour Intake 1115 ml [...] | | | | | | 5 ([facility]) Closed | | | | | | [...] R?MRN: | | | | | | [id number] | | | [id number] | | | riteri | | | [...] | | | St. | | | [place] | | | y | | | [...] | | | [facility] | | | [place] | | | 3 0 | | | [facility] | | | St[facility] | | | [place] | | | y | | | [...] | | | St. | | | [place] | | | y H. | | [...] | | e of | | | [place] [place] | | | | | | [place] [...] | | | St. | | | [place] | | | y H. | | [...] the | | | | | | business center manager | | | al | | | [...] | | | St. | | | [place] | | | y H. | | [...] | | e of | | | [place] [place] | | | | | | [place] [...] | | | [facility] | | | [place] | | | [place] | | | ID | | | [...] | | | [facility] | | | [place] | | | [place] | | | ID | | | [...] | | | [facility] | | | [place] | | | [place] | | | ID | | | [...] | | | [facility] | | | [place] | | | [place] | | | ID | | | [...] | | | [facility] | | | [place] | | | [place] | | | ID | | | [...] | | | HAWK | | | TELLER | | | | | | HEALTH [...] | | | [id number] | | | [id number] | | | 3131 | | | [...] + | [facility] | [address] | [place] | [phone] | | [facility] | | [address] | | | - LABORATORY | | [...] + | [facility] | [address] | [place] | [phone] | | [facility] | | [address] | | | - LABORATORY | | [...] [address] | [place] | [phone] | | [facility] | | [address] | | | - LABORATORY | | [...] + | [facility] | [address] | [place] | [phone] | | [facility] | | [address] | | | - LABORATORY | | [...] [address] | [place] | [phone] | | [facility] | | [address] | | | - LABORATORY | | [...] [address] | [place] | [phone] | | [facility] | | [address] | | | - LABORATORY | | [...] [address] | [place] | [phone] | | [facility] | | [address] | | | - LABORATORY | | [...] + | [facility] | [address] | [place] | [phone] | | [facility] | | [address] | | | - LABORATORY | | [...] | [address] | [place] | [phone] | | [facility] | | [address] | | | - LABORATORY | | [...] [address] | [place] | [phone] | | [facility] | | [address] | | | - LABORATORY | | [...] + | [facility] | [address] | [place] | [phone] | | [facility] | | [address] | | | - LABORATORY | | [...] + | [facility] | [address] | [place], [place] | [phone] | | [facility] | | [address] | | | - LABORATORY | | [...] [address] | [place] | [phone] | | [facility] | | [address] | | | - LABORATORY | | [...] [address] | [place] | [phone] | | [facility] | | [address] | | | - LABORATORY | | [...] | | | | g/dL | [facility] | | | | | | MEDICAL [...] [address] | [place] | [phone] | | [facility] | | [address] | | | - LABORATORY | | [...] + | [facility] | [address] | [place] | [phone] | | [facility] | | [address] | | | - LABORATORY | | [...] [address] | [place] | [phone] | | [facility] | | [address] | | | - LABORATORY | | [...] ST. | [address] | [place], [place] | [phone] | | [facility] | | [address] | | | - LABORATORY | | [...] [address] | [place] | [phone] | | [facility] | | [address] | | | - LABORATORY | | [...] + | [facility] | [address] | [place] | [phone] | | [facility] | | [address] | | | - LABORATORY | | [...] [address] | [place] | [phone] | | [facility] | | [address] | | | - LABORATORY | | [...] [address] | [place] | [phone] | | [facility] | | [address] | | | - LABORATORY | | [...] mL/min/1.73m2 | [facility] | | | SPANISH | | | MEDICAL | | | [...] [address] | [place] | [phone] | | [facility] | | [address] | | | - LABORATORY | | [...] | | | | | | STMarianela UMLTANI | | | | | | MEDICAL [...] ST. | [address] | [place] | [phone] | | [facility] | | [address] | | | - LABORATORY | | [...] [address] | [place] | [phone] | | [facility] | | [address] | | | - LABORATORY | | [...] + | [facility] | [address] | [place] | [phone] | | [facility] | | [address] | | | - LABORATORY | | [...] ST. | [address] | [place] | [phone] | | [facility] | | [address] | | | - LABORATORY | | [...] neck.Dictated and | | Signed by: Salvatore Nunze MD Electronically signed: 12/04/2018 7:01 PM | [...] + | [facility] | [address] | [place] | [phone] | | [facility] | | [address] | | | - LABORATORY | | [...] [address] | [place] | [phone] | | [facility] | | [address] | | | - LABORATORY | | [...] + | [facility] | [address] | [place] | [phone] | | [facility] | | [address] | | | - LABORATORY | | [...] mL/min/1.73m2 | [facility] | | | SPANISH | | | MEDICAL | | | [...] [address] | [place] | [phone] | | [facility] | | [address] | | | - LABORATORY | | [...] ST. | [address] | [place], [place] | [phone] | | [facility] | | [address] | | | - LABORATORY | | [...] | | | | | | | [id number] Use NIGHT DOSE for | | | | | | | doses scheduled: HS, 3AM, | | | | | | | Nighttime [id number], | | | | | | + [...] scheduled: AC, NPO, Daytime | | | 7719-3088 Use NIGHT DOSE for | | | doses scheduled: HS, 3AM, | | | Nighttime [id number], | | + +---+ | | | [...]
--- OUTSIDE RECORDS SUMMARY | ~2019-08-24 | XMS | Encounter Summary ---
Demographics + + + | Address | [address] | | | [place] [address] | + + + | Home Phone [...] | [facility] | | | and [place] | + + + | Organization | [facility] | | | and [place] | + + + | Address | Unknown | + + + | Phone | Unavailable | + + + Support + + + + + | Name | Relationship | Address | Phone | + + + + + | India Tilley | ECON | [address] | | | | | [place], [place] | | | | | [address] | | + + + + + | Yina La | ECON | Unknown | | + + + + + | Yina Peterson | ECON | Unknown | | + + + + + | Leatha Casillas | ECON | Unknown | | + + + + + Care Team Providers + +------+ + | Care Salesperson Pets And Pet Supplies Name | Role | Phone | + +------+ + PCP | Unavailable | + +------+ + Encounter Details +--------+ + + + + | Date | Type | Department | Care Team | Description | +--------+ + + + + | 04/16/ | Abstract | [facility] | Darlin Moseley W, | | | 2016 | | NEPHROLOGY [address] | [address] | | | | | [address] | [place] [address] [facility] | | | | | [place] | [place] [address] | | | | | [address] | [phone] | | | | | [phone] | | | +--------+ + + + [...]
--- OUTSIDE RECORDS SUMMARY | ~2019-08-24 | XMS | Encounter Summary ---
Demographics + + + | Address | [address] | | | [place] [address] | + + + | Home Phone [...] + + + | Author | [facility] | | | and [place] | + + + | Organization | [facility] | | | and [place] | + + + | Address | Unknown | + + + | Phone | Unavailable | + + + Support + + + + + | Name | Relationship | Address | Phone | + + + + + | India Tilley | ECON | [address] | | | | | [place], [place] | | | | | [address] | | + + + + + | Yina La | ECON | Unknown | | + + + + + | Yina Peterson | ECON | Unknown | | + + + + + | Leatha Casillas | ECON | Unknown | | + + + + + Care Team Providers + +------+ + | Care Pediatrician Managing Partner Name | Role | Phone | + [...] [address] | | | | | [address] [facility] | [place] | | | | | [place] | [address] | | | | | [address] | | | | | | [phone] | | | +--------+--------+ + + + [...]
--- OUTSIDE RECORDS SUMMARY | ~2019-08-24 | XMS | Encounter Summary ---
Demographics + + + | Address | [address] | | | [place] [address] | + + + | Home Phone | | + + + | Preferred Language | Unknown | + + + | Marital Status | Single | + + + | Tenriism Affiliation | Unknown | + + + | Race | Unknown | + + + | Ethnic Group | Unknown | + + + Author + + + | Author | [facility] | | | and [place] | + + + | Organization | [facility] | | | and [place] | + + + | Address | Unknown | + + + | Phone | Unavailable | + + + Support + + + + + | Name | Relationship | Address | Phone | + + + + + | India Tilley | ECON | [address] | | | | | [place], [place] | | | | | [address] | | + + + + + | Yina La | ECON | Unknown | | + + + + + | Yina Peterson | ECON | Unknown | | + + + + + | Leatha Casillas | ECON | Unknown | | + + + + + Care Team Providers + +------+ + | Care Sharepoint Trainer Name | Role | Phone | + [...] + + | 04/04/ | Telephone | [facility] | Zari Azul | Hospital Follow-up | | 2019 | | Internal Medicine | Gregg RN | | | | | Hospitalists [address] | | | | | | [address] [place] | | | | | | [address] | | | | | | [phone] | | | +--------+ + + + [...]
--- OUTSIDE RECORDS SUMMARY | ~2019-08-24 | XMS | Encounter Summary ---
Demographics + + + | Address | [address] | | | [place] [address] | + + + | Home Phone [...] | Author | [facility] | | | and [place] | + + + | Organization | [facility] | | | and [place] | + + + | Address | Unknown | + + + | Phone | Unavailable | + + + Support + + + + + | Name | Relationship | Address | Phone | + + + + + | India Tilley | ECON | [address] | | | | | [place], [place] | | | | | [address] | | + + + + + | Yina aL | ECON | Unknown | | + + + + + | Yina Peterson | ECON | Unknown | | + + + + + | Leatha Casillas | ECON | Unknown | | + + + + + Care Team Providers + +------+ + | Care Algebra Teacher Name | Role | Phone | [...] NEPHROLOGY [address] | M, DO [address] | | | | | [address] | [place] [place] [address] | | | | | [place] | [place] | | | | | [address] | [address] | | | | | [phone] | | | +--------+ + + + [...] HD in [address]and then was DC to [facility] [place]. Unfortunat brandy, she has had intermittent [...] 3:11 PM CC: [facility], [place], [place] [facility], [place], [place]. document ed in this encounter Plan of Treatment Not on filedocumented as of this encounter Visit Diagnoses + + | Diagnosis | + + | ESRD (end stage renal disease) on dialysis (HCC) - Primary End stage renal disease | + + documented in this encounter
--- OUTSIDE RECORDS SUMMARY | ~2019-08-24 | XMS | Encounter Summary ---
Demographics + + + | Address | [address] | | | [place] [address] | + + + | Home Phone [...] Author | [facility] | | | and [place] | + + + | Organization | [facility] | | | and [place] | + + + | Address | Unknown | + + + | Phone | Unavailable | + + + Support + + + + + | Name | Relationship | Address | Phone | + + + + + | India Tilley | ECON | [address] | | | | | [place], [place] | | | | | [address] | | + + + + + | Yina La | ECON | Unknown | | + + + + + | Yina Peterson | ECON | Unknown | | + + + + + | Leatha Casillas | ECON | Unknown | | + + + + + Care Team Providers + +------+ + | Care Hall Coordinator Name | Role | Phone | + +------+ + | Renato Pierson DIPESH | PCP | | + +------+ + Encounter Details +--------+ + + + + | Date | Type | Department | Care Team | Description | +--------+ + + + + | 06/13/ | Orders Only | [facility] | Gerald Lee, | 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 | | [address] | Instructor Robotics | intervertebral disc | | | | [place] | | (pyogenic), thoracic | | | | [address] | | region ([facility]); | | | | [phone] | | Osteomyelitis of | | | | | | thoracic vertebra | | | | | | ([facility]) | +--------+ + + + + [...] section. | | | | | region ([facility]) | | | | | | [...] section. | | | | | region ([facility]) | | | | | | [...] REFERENCE | | | | performed at TC;[address] | | LAB | | | | [place] | | [facility] [address] | [address];[place] [address] | | LABORATORY | | + + + + + + + + | Specimen | + + | Blood | + + + + + + + | Performing | Address | City/State/Zipcode | Phone Number | | Organization | | | | + + + + + | REFERENCE LAB | [address] [place] [address] | [place] [address] | [phone] | | [facility] | Blvd[address] | | | | LABORATORY | | | | + + + + + | REFERENCE LAB | [address] [place] [address] | [place] [address] | | | [facility] | Blvd[address] | [...] REFERENCE | | | | performed at [facility];[address] | | LAB | | | | [place] | | [facility] | | | | [address];[place] [address] | | LABORATORY | | + + + + + + + + | Specimen | + + | Blood | + + + + + + + | Performing | Address | City/State/Zipcode | Phone Number | | Organization | | | | + + + + + | REFERENCE LAB | [address] [place] [address] [facility] | [place] [address] | [phone] | | [facility] | Blvd[address] | | | | LABORATORY | | | | + + + + + | REFERENCE LAB | [facility] | [place] [address] | | | [facility] | Blvd[address] | [...]
--- OUTSIDE RECORDS SUMMARY | ~2019-08-24 | XMS | Encounter Summary ---
Demographics + + + | Address | [address] | | | [place] [...] | Author | [facility] | | | and [place] | + + + | Organization | [facility] | | | and [place] | + + + | Address | Unknown | + + + | Phone | Unavailable | + + + Support + + + + + | Name | Relationship | Address | Phone | + + + + + | India Tilley | ECON | [address] | | | | | [place], [place] | | | | | [address] | | + + + + + | Yina La | ECON | Unknown | | + + + + + | Yina Peterson | ECON | Unknown | | + + + + + | Leatha Casillas | ECON | Unknown | | + + + + + Care Team Providers + +------+ + | Care Air Conditioning Mechanic Industrial Name | Role | Phone | + [...] + + | 03/09/ | Telephone | [facility] | Santos Stephenson | Other (appointment) | | 2018 | | SURGERY [address] | MD Kinga, FACS [address] | | | | | ST [place], [place] | [address] [facility] | | | | | [address] | [place] [address] | | | | | [phone] | [phone] | | | | | | | [...]
--- OUTSIDE RECORDS SUMMARY | ~2019-08-24 | XMS | Encounter Summary ---
Demographics + + + | Address | [address] | | | [place] [address] | + + + | Home Phone [...] + | Author | [facility] | | | and [place] | + + + | Organization | [facility] | | | and [place] | + + + | Address | Unknown | + + + | Phone | Unavailable | + + + Support + + + + + | Name | Relationship | Address | Phone | + + + + + | India Tilley | ECON | [address] | | | | | [place], [place] | | | | | [address] | | + + + + + | Yina La | ECON | Unknown | | + + + + + | Yina Peterson | ECON | Unknown | | + + + + + | Leatha Casillas | ECON | Unknown | | + + + + + Care Team Providers + +------+ + | Care Brim Greaser Operator Name | Role | Phone | [...] | | | | renal | PA-C [address] | [address] [place] [address] | | | | | disease | | [address] | | | | | ([facility]) | CONFED[facility]ATED | [address] | | | | | Procedures | WAY | [place] | | | | | [place] OFFICE | [place], | [address] Phone: | | | | | OUTPATIENT | [place] [address] | [phone] | | | | | VISIT 25 | Phone: | Fax: | | | | | [place] | [phone] | [phone] | | | | | ESRD RELATED | Fax: | | | | | | SVC MONTHLY | [phone] | | | | | | 20&/> YR | | | | | | | OLD 4/> | | | | | | | VISITS | | | +--------+--------+ + + + + Encounter Details +--------+ + + + + | Date | Type | Department | Care Team | Description | +--------+ + + + + | 08/22/ | Off-Site | [facility] | Gopi Muoñz | End stage renal | | 2018 | Visit | NEPHROLOGY [address] | M, DO [address] | disease (HCC) | | | | [address] | [place], [place] [address] | (Primary Dx) | | | | [place], [place] | [place], [place] | | | | | [address] | [address] | | | | | [phone] | | | +--------+ + + + [...] encounter Progress Notes Gopi Muñoz DO - 08/22/2018 11:30 AM PST[Pt not seen. AMA from HD txs this month]. Davon Muñoz DO documented in thi s encounter Plan of Treatment Not on filedocumented as of this encounter Visit Diagnoses + + | Diagnosis | + + | End stage renal disease (HCC) - Primary End stage renal disease | + + documented in this encounter"
--- OUTSIDE RECORDS SUMMARY | ~2019-08-24 | XMS | Encounter Summary ---
Demographics + + + | Address | [address] | | | [place] [address] | + + + | Home Phone | | + + + | Preferred Language | Unknown | + + + | Marital Status | Single | + + + | Latter Day Affiliation | Unknown | + + + | Race | Unknown | + + + | Ethnic Group | Unknown | + + + Author + + + | Author | [facility] | | | and [place] | + + + | Organization | [facility] | | | and [place] | + + + | Address | Unknown | + + + | Phone | Unavailable | + + + Support + + + + + | Name | Relationship | Address | Phone | + + + + + | India Tilley | ECON | [address] | | | | | [place], [place] | | | | | [address] | | + + + + + | Yina La | ECON | Unknown | | + + + + + | Yina Peterson | ECON | Unknown | | + + + + + | Leatha Casillas | ECON | Unknown | | + + + + + Care Team Providers + +------+ + | Care Sales Account Manager Name | Role | Phone | + +------+ + PCP | Unavailable | + +------+ + Encounter Details +--------+ + + + + | Date | Type | Department | Care Team | Description | +--------+ + + + + | 01/03/ | Episode | [facility] | Mike Pearson | | | 2018 | Changes | SURGERY [address] | [address] | | | | | [place] | | | | | | [address] | | | | | | [phone] | | | +--------+ + + + [...]
--- OUTSIDE RECORDS SUMMARY | ~2019-08-24 | XMS | Encounter Summary ---
Demographics + + + | Address | [address] | | | [place] [address] | + + + | Home Phone [...] [facility] | | | and [place] | + + + | Organization | [facility] | | | and [place] | + + + | Address | Unknown | + + + | Phone | Unavailable | + + + Support + + + + + | Name | Relationship | Address | Phone | + + + + + | India Tilley | ECON | [address] | | | | | [place], [place] | | | | | [address] | | + + + + + | Yina La | ECON | Unknown | | + + + + + | Yina Peterson | ECON | Unknown | | + + + + + | Leatha Casillas | ECON | Unknown | | + + + + + Care Team Providers + +------+ + | Care Presidential Helicopter Crew Chief Name | Role | Phone | + +------+ + PCP | Unavailable | + +------+ + Encounter Details +--------+ + + + + | Date | Type | Department | Care Team | Description | +--------+ + + + + | 01/04/ | Anesthesia | [facility] | Lyndsay Mckeon, | | | 2018 | Event | [facility] | DO [address] | | | | | [address] | [place] | | | | | [place] | [phone] | | | | | [address] | | | | | | [phone] | Vinnie Last MD | | | | | | [address] | | | | | | [place] | | | | | | [address] | | | | | | | | +--------+ + + + + Anesthesia Record + + + + + | Procedure Name | Responsible | Anesthesia Start | Anesthesia Stop Time | | | Anesthesiologist | Time | | + + + + + | Right Transposed | Lyndsay Mike | 01/04/18 1258 | 01/04/18 1556 | | Basilic Vein to | | | | | Proximal Radial | | | | | Artery (Right Arm | | | | | Upper) | | | | + + + + + +----+---+ + + | Da | T | Event | Comment | | te | i | | | | | m | | | | | e | | | +----+---+ + + | 04 | 1 | | | | /2 | 2 | | | | 4/ | 4 | | | | 20 | 4 | | | | 18 | | | | +----+---+ + + | | 1 | An Checkout | Pre-use anesthesia machine/equipment checkout. | | | 2 | | | | | 4 | | | | | 4 | | | +----+---+ + + | | 1 | Antibiotic | | | | 2 | Given | | | | 4 | | | | | 8 | | | +----+---+ + + | | 1 | An Start | | | | 2 | Data | | | | 4 | | | | | 8 | | | +----+---+ + + | | 1 | Pre-Procedu | | | | 2 | ral Timeout | | | | 4 | Completed | | | | 8 | | | +----+---+ + + | | 1 | Block Start | | | | 2 | | | | | 4 | | | | | 9 | | | +----+---+ + + | | 1 | AN Block | | | | 2 | End | | | | 5 | | | | | 4 | | | +----+---+ + + | | 1 | An Start | Reassessment prior to anesthesia induction/procedure. | | | 2 | | | | | 5 | | | | | 8 | | | +----+---+ + + | | 1 | Preoxygenat | | | | 3 | ed | | | | 0 | | | | | 4 | | | +----+---+ + + | | 1 | an stop | | | | 3 | data | | | | 0 | | | | | 5 | | | +----+---+ + + | | 1 | An | | | | 3 | Induction | | | | 0 | | | | | 6 | | | +----+---+ + + | | 1 | An | | | | 3 | Intubation | | | | 0 | | | | | 7 | | | +----+---+ + + | | 1 | [facility] | | | | 3 | 43-degrees | | | | 2 | | | | | 1 | | | +----+---+ + + | | 1 | First | | | | 3 | Inc/Proc St | | | | 2 | | | | | 8 | | | +----+---+ + + | | 1 | [facility] off | | | | 5 | | | | | 5 | | | | | 2 | | | +----+---+ + + | | 1 | Extubated | | | | 5 | Awake | | | | 5 | | | | | 2 | | | +----+---+ + + | | 1 | an stop | | | | 5 | data | | | | 5 | | | | | 2 | | | +----+---+ + + | | 1 | An Stop | Patient handed off to recovery nurse. | | | 5 | | | | | 6 | | | +----+---+ + + +------+ | Meds | +------+ + + + | Name | Total | + + + | midazolam | 2 mg | + + + | fentaNYL injection (2 mL) | 200 mcg | + + + | ropivacaine 0.5% | 15 mL | + + + | lidocaine 2% (PF) | 5 mL | + + + | lidocaine 2% | 70 mg | + + + | propofol (DIPRIVAN) injection | 140 mg | | (bolus) (20 mL) | | + + + | ePHEDrine | 10 mg | + + + | ceFAZolin (ANCEF, KEFZOL) 100 | 1 g | | mg/mL IV syringe 1 g | | + + + | heparin | 5,000 Units | + + + | sodium chloride 0.9% (NS) | 700 mL | | infusion | | + + + + + | Name | + + [...] | | +--------+ + + + | Fistul | 01/04/18; (in [place]); Right; | 01/04/18 0000 by | 01/04/18 1705 by | | a | charted inaccurately; 01/04/18; | Micki Young, | Anat Alvarado RN | | | 1705 | RN | | +--------+ + + + | Periph | 01/04/18; 1152; Left; Hand; | 01/04/18 1152 by | 01/04/18 1728 by | | eral | [id number] catheter system; | Linh Gamez RN | Micki Young, | | IV | 20 gauge, 1 1/4 in length; | | RN | | | distraction, intradermal | | | | | injection, tolerated well; no | | | | | longer indicated, catheter/device | | | | | intact; 01/04/18; 1728 | | | +--------+ + + + | Airway | Placement Date: 01/04/18; | 01/04/18 1307 by Tor | 01/04/18 1552 by | | | Placement Time: 1307 (created via | Zuleima Garrido MD | Lyndsay Mckoen DO | | | procedure documentation); Mask | | | | | Ventilation: EZ; Attempts: 1; | | | | | Airway Type: laryngeal mask; | | | | | Size: 3; Trauma: none; Placement | | | | | Check: exhaled CO2 detection | | | | | device; Removal Date: 01/04/18; | | | | | Removal Time: 1552 | | | +--------+ + + + | Read | 01/04/18; 1341; Right; arm; | 01/04/18 1341 by | 01/04/18 1738 by | | only - | healing within expectations; | Wendy Zhu RN | Micki Young, | | | 01/04/18; 1738 | | RN | | Incisi | | | | | on | | | | +--------+ + + + | Drain/ | 01/04/18; 1516; #1; Right; | 01/04/18 1516 by | 01/04/18 1729 by | | Device | anterior; forearm; collapsible | Weston De Leon RN | Micki Young, | | Site | closed device; (10fr 100ml JANUARY | | RN | | | Drain); healing within | | | | | expectations; 01/04/18; 1729 | | | +--------+ + + + | Read | 01/04/18; 1557; Right; hand; | 01/04/18 1557 by | 01/04/18 1738 by | | only - | healing within expectations; | Weston De Leon RN | Micki Young, | | | 01/04/18; 1738 | | RN | | Incisi | | | | [...] | ANE AIRWAY NOTE | Routin | 01/04/2018 | | Results for this | | | e | 1:48 PM | | procedure are in the | | | | PDT | | results section. | + +--------+ + + + | ANE NERVE BLOCK | Routin | 01/04/2018 | | Results for this | | CATHETER NOTE | e | 1:47 PM | | procedure are in the | | | | PDT | | results section. | + +--------+ + + + documented in this encounter Results Anesthesia Airway Note (01/04/2018 1:48 PM PDT) + + + | Narrative | Performed At | + + + | Petros Garrido MD 01/04/2018 13:48 Anesthesia Airway | | | Placement 01/04/2018 13:07 Preprocedure check: patient identified, | | | oxygen, airway assessed, patient reassessment prior to induction, | | | airway equipment checked and suction Rapid Sequence Induction: no | | | Mask ventilation: easy Attempts: 1 Airway type: laryngeal mask | | | Size: 3 Route, reference point: center of mouth Tube secured with: | | | adhesive tape Trauma: none Tube placement verification: carbon | | | dioxide detection Performing provider: PETROS GARRIDO | | | Electronically Signed by: Petros Garrido MD | | | ESig date/time: 01/04/2018 13:48 | | | | | + + + + + | Procedure Note | + + | Petros Garrido MD - 01/04/2018 1:48 PM PDT Anesthesia Airway | | Placement01/04/2018 13:07Preprocedure check: patient identified, oxygen, airway assessed, | | patient reassessment prior to induction, airway equipment checked and suctionRapid | | Sequence Induction: noMask ventilation: easyAttempts: 1Airway type: laryngeal maskSize: | | 3Route, reference point: center of mouthTube secured with: adhesive tapeTrauma: | | noneTube placement verification: carbon dioxide detectionPerforming provider: RADHIKA | | PETROS Tarangoectronically Signed by: MD Eleazar Jaramillo | | date/time: 01/04/2018 13:48 | |Size: 3 | |Route, reference point: center of mouth | |Tube secured with: adhesive tape | |Trauma: none | |Tube placement verification: carbon dioxide detection | |Performing provider: PETROS GARRIDO | | | | | |Electronically Signed by: MD Eleazar Jaramillo date/time: 12/13 13:48 | | | + + Anesthesia Perineural Note (01/04/2018 1:47 PM PDT) + + + | Narrative | Performed At | + + + | Petros Garrido MD 01/04/2018 13:48 Perineural Procedure | | | Note 01/04/2018 12:54 Nerve block: supraclavicular-brachial plexus | | | Provider requested procedure: Dr. Stephenson Indication: postoperative | | | analgesia Preprocedure check: patient identified, procedure and | | | rescue equipment checked, preevaluation including airway assessment | | | complete, risks/benefits discussed, consent obtained, timeout | | | performed, reassessment prior to procedure and monitors applied | | | Patient position: supine Preparation: chlorhexidine/isopropyl | | | alcohol, 1% lidocaine infiltration Local anesthetic infiltration | | | volume in ml: 2 mL Technique: ultrasound Radiology image stored in | | | patient's chart: ultrasound Needle: echogenic, stimulating, insulated | | | and short-bevel Needle size: 22 g Needle length: 4 in Medication | | | administered through: needle Negative findings: no blood aspirated | | | and no paresthesia Total volume of local anesthetic solution | | | administered: 20 mL Attempts: 1 Ease of procedure: easy | | | Comments: SpO2, NBP monitored during procedure and recorded in | | | anesthesia record. Ultrasound used to identify the subclavian | | | artery and supraclavicular brachial plexus. Under continuous | | | ultrasound guidance the Stimuplex needle was advanced to the | | | supraclavicular brachial plexus proximity with needle tip visualized | | | throughout. 15ml 0.5% Ropivacaine with 5ml 2% lidocaine was | | | injected in 5 ml increments around the nerves with intermittent | | | negative aspiration and no paresthesias. Ultrasound image placed in | | | chart. Please see anesthesia record or flowsheet for vital sign | | | documentation and see anesthesia record or MAR for all medication | | | documentation. Performing provider: PETROS GARRIDO | | | Electronically Signed by: Petros Garrido MD | | | ESig date/time: 01/04/2018 13:48 | | + + + + + | Procedure Note | + + | Petros Garrido MD - 01/04/2018 1:47 PM PDT Perineural Procedure Note01/04/2018 | | 12:54Nerve block: supraclavicular-brachial plexusProvider requested procedure: | | FieldIndication: postoperative analgesiaPreprocedure check: patient identified, | | procedure and rescue equipment checked, preevaluation including airway assessment | | complete, risks/benefits discussed, consent obtained, timeout performed, reassessment | | prior to procedure and monitors appliedPatient position: supinePreparation: | | chlorhexidine/isopropyl alcohol, 1% lidocaine infiltrationLocal anesthetic infiltration | | volume in ml: 2 mLTechnique: ultrasoundRadiology image stored in patient's chart: | | ultrasoundNeedle: echogenic, stimulating, insulated and short-bevelNeedle size: 22 | | gNeedle length: 4 inMedication administered through: needleNegative findings: no blood | | aspirated and no paresthesiaTotal volume of local anesthetic solution administered: 20 | | mLAttempts: 1Ease of procedure: easyComments: SpO2, NBP monitored during procedure and | | recorded in anesthesia record. Ultrasound used to identify the subclavian artery and | | supraclavicular brachial plexus. Under continuous ultrasound guidance the Stimuplex | | needle was advanced to the supraclavicular brachial plexus proximity with needle tip | | visualized throughout. 15ml 0.5% Ropivacaine with 5ml 2% lidocaine was injected in 5 | | ml increments around the nerves with intermittent negative aspiration and no | | paresthesias. Ultrasound image placed in chart.Please see anesthesia record or flowsheet | | for vital sign documentation and see anesthesia record or MAR for all medication | | documentation.Performing provider: PETROS GARRIDOectronically Signed by: Petros Pulido | | MD Radhika ESig date/time: 01/04/2018 13:48 | |Comments: SpO2, NBP monitored during procedure and recorded in anesthesia record. Ultrasou nd used to identify the subclavian artery and supraclavicular brachial plexus. Under contin uous ultrasound guidance the | |Stimuplex needle was advanced to the supraclavicular brachial plexus proximity with needle tip visualized throughout. 15ml 0.5% Ropivacaine with 5ml 2% lidocaine was injected in 5 m l increments around the nerves | |with intermittent negative aspiration and no paresthesias. Ultrasound image placed in chart . | | | |Please see anesthesia record or flowsheet for vital sign documentation and see anesthesia r ecord or MAR for all medication documentation. | | | | | |Performing provider: PETROS GARRIDO | | | | | | | |Electronically Signed by: MD Eleazar Jaramillo date/time: 01/04/2018 13:48 | + + documented in this encounter Visit Diagnoses Not on filedocumented in this encounter Administered Medications + +--------+ +------+------+------+ | Medication Order | MAR | Action | Dose | Rate | Site | | | Action | Date | | | | + +--------+ +------+------+------+ | ceFAZolin (ANCEF, KEFZOL) 100 | Given | 01/05/20 | 1 g | | | | mg/mL IV syringe 1 g 1 g, | | 18 12:48 | | | | | Intravenous, Administer over 30 | | PM PDT | | | | | Minutes, Prior to Incision, | | | | | | | Starting Wed01/04/18 at 0613, For | | | | | | | 1 dose, administer within 1 hour | | | | | | | of incision, Pre-op, | | | | | | | Indications: Surgical Prophylaxis | | | | | | + +--------+ +------+------+------+ +---+---+ | | | +---+---+ + +-------+ +-------+---+---+ | ePHEDrine 50 mg/mL injection | Given | 01/05/20 | 10 mg | | | | PRN, Starting Wed01/04/18 at | | 18 1:23 | | | | | 1323, Anesthesia Intra-op | | PM PDT | | | | + +-------+ +-------+---+---+ +---+---+ | | | +---+---+ + +-------+ +--------+---+---+ | fentaNYL (PF) injection PRN, | Given | 01/05/20 | 25 mcg | | | | Pain, Starting Wed01/04/18 at | | 18 3:35 | | | | | 1249, Anesthesia Intra-op | | PM PDT | | | | + +-------+ +--------+---+---+ +-------+ +--------+---+---+ | Given | 01/05/20 | 25 mcg | | | | | 18 3:25 | | | | | | PM PDT | | | | +-------+ +--------+---+---+ | Given | 01/05/20 | 25 mcg | | | | | 18 2:57 | | | | | | PM PDT | | | | +-------+ +--------+---+---+ +---+---+ | | | +---+---+ + +-------+ +--------+---+---+ | heparin 1,000 units/mL | Given | 01/05/20 | 5,000 | | | | injection Intravenous, PRN, | | 18 2:45 | Units | | | | Starting 01/04/18 at 1445, | | PM PDT | | | | | Anesthesia Intra-op | | | | | | + +-------+ +--------+---+---+ +---+---+ | | | +---+---+ + +-------+ +-------+---+---+ | lidocaine (PF) 2% injection | Given | 01/05/20 | 70 mg | | | | Intravenous, PRN, Starting Tue | | 18 1:06 | | | | | 01/04/18 at 1306, Anesthesia | | PM PDT | | | | | Intra-op | | | | | | + +-------+ +-------+---+---+ +---+---+ | | | +---+---+ + +-------+ +-------+---+---+ | lidocaine (PF) 2% injection | Given | 01/05/20 | 5 mLs | | | | PRN, Starting Wed01/04/18 at | | 18 12:54 | | | | | 1254, Anesthesia Intra-op | | PM PDT | | | | + +-------+ +-------+---+---+ +---+---+ | | | +---+---+ + +-------+ +------+---+---+ | midazolam (VERSED) 1 mg/mL | Given | 01/05/20 | 1 mg | | | | injection Intravenous, PRN, | | 18 1:04 | | | | | Anxiety, Starting Wed01/04/18 at | | PM PDT | | | | | 1249, Anesthesia Intra-op | | | | | | + +-------+ +------+---+---+ +-------+ +------+---+---+ | Given | 01/05/20 | 1 mg | | | | | 18 12:49 | | | | | | PM PDT | | | | +-------+ +------+---+---+ +---+---+ | | | +---+---+ + +-------+ +--------+---+---+ | propofol (DIPRIVAN) injection | Given | 01/05/20 | 140 mg | | | | PRN, Starting Wed01/04/18 at | | 18 1:06 | | | | | 1306, Anesthesia Intra-op | | PM PDT | | | | + +-------+ +--------+---+---+ +---+---+ | | | +---+---+ + +-------+ +--------+---+---+ | ropivacaine (NAROPIN) 5 mg/mL | Given | 01/05/20 | 15 mLs | | | | (0.5%) injection PERINEURAL, | | 18 12:54 | | | | | PRN, Starting 01/04/18 at | | PM PDT | | | | | 1254, Anesthesia Intra-op | | | | | | + +-------+ +--------+---+---+ +---+---+ | | | +---+---+ + +---------+ +---+---+---+ | sodium chloride 0.9% (NS) | New Bag | 01/05/20 | | | | | infusion at 10-100 mL/hr, | | 18 1:48 | | | | | Intravenous, CONTINUOUS, Starting | | PM PDT | | | | | e 01/04/18 at 1215, TKO. Use | | [...]
--- OUTSIDE RECORDS SUMMARY | ~2019-08-24 | XMS | Encounter Summary ---
Demographics + + + | Address | [address] | | | [place] [address] | + + + | Home Phone [...] Author | [facility] | | | and [place] | + + + | Organization | [facility] | | | and [place] | + + + | Address | Unknown | + + + | Phone | Unavailable | + + + Support + + + + + | Name | Relationship | Address | Phone | + + + + + | India Tilley | ECON | [address] | | | | | [place], [place] | | | | | [address] | | + + + + + | Yina La | ECON | Unknown | | + + + + + | Yina Peterson | ECON | Unknown | | + + + + + | Leatha Casillas | ECON | Unknown | | + + + + + Care Team Providers + +------+ + | Care Front Desk Agent Name | Role | Phone | [...] 2019 | | [address] | Dressing Room Attendant | intervertebral disc | | | | [place] | | (pyogenic), thoracic | | | | [address] | | region ([facility]); | | | | [phone] | | Osteomyelitis of | | | | | | thoracic vertebra | | | | | | ([facility]) | +--------+ + + + + [...] | | | | region ([facility]) | | | | | | [...] | | | | region ([facility]) | | | | | | [...] | | [facility] | | | | [address]vd;[place] [address] | | LABORATORY | | + + + + + + + + | Specimen | + + | Blood | + + + + + + + | Performing | Address | City/State/Zipcode | Phone Number | | Organization | | | | + + + + + | REFERENCE LAB | [address] [place] [address] | [place] [address] | [phone] | | [facility] | Blvd[address] | | | | LABORATORY | | | | + + + + + | REFERENCE LAB | [address] [place] [address] | [place] [address] | | | [facility] | Bl[address] | [...] REFERENCE | | | | performed at [facility];[address] | | LAB | | | | [place] | | [facility] | | | | [address];[place] [address] | | LABORATORY | | + + + + + + + + | Specimen | + + | Blood | + + + + + + + | Performing | Address | City/State/Zipcode | Phone Number | | Organization | | | | + + + + + | REFERENCE LAB | [address] [place] [address] [facility] | [place] [address] | [phone] | | [facility] | Blvd[address] | | | | LABORATORY | | | | + + + + + | REFERENCE LAB | [facility] | [place] [address] | | | [facility] | Bl[address] | [...]
--- OUTSIDE RECORDS SUMMARY | ~2019-08-24 | XMS | Encounter Summary ---
Demographics + + + | Address | [address] | | | [place] [address] | + + + | Home Phone [...] + | Author | [facility] | | | and [place] | + + + | Organization | [facility] | | | and [place] | + + + | Address | Unknown | + + + | Phone | Unavailable | + + + Support + + + + + | Name | Relationship | Address | Phone | + + + + + | India Tilley | ECON | [address] | | | | | [place], [place] | | | | | [address] | | + + + + + | Yina La | ECON | Unknown | | + + + + + | Yina Peterson | ECON | Unknown | | + + + + + | Leatha Casillas | ECON | Unknown | | + + + + + Care Team Providers + +------+ + | Care Fingerprint Expert Name | Role | Phone | + [...] + + | 12/29/ | Telephone | [facility] | Santos Stephenson | Appointment | | 2017 | | SURGERY [address] | MD Kinga, FACS [address] | | | | | [place], [place] | [address] | | | | | [address] | [place] [address] | | | | | [phone] | [phone] | | | | | | | [...]
--- OUTSIDE RECORDS SUMMARY | ~2019-08-24 | XMS | Encounter Summary ---
Demographics + + + | Address | [address] | | | [place] [address] | + + + | Home Phone [...] | [facility] | | | and [place] | + + + | Organization | [facility] | | | and [place] | + + + | Address | Unknown | + + + | Phone | Unavailable | + + + Support + + + + + | Name | Relationship | Address | Phone | + + + + + | India Tilley | ECON | [address] | | | | | [place], [...] Team Providers + +------+ + | Care Investigator Cash Shortage Name | Role | Phone | + [...] + + | 01/06/ | Telephone | [facility] | Scott Koroma, | Insurance | | 2019 | | ORTHOPEDIC SURGERY | [address] | Authorization | | | | [address] [facility] | [place] | | | | | [place] | [id number] | | | | | [address] | | | | | | [phone] | | | +--------+ + + + [...]
--- OUTSIDE RECORDS SUMMARY | ~2019-08-24 | XMS | Encounter Summary ---
Demographics + + + | Address | [address] | | | [place] [address] | + + + | Home Phone [...] | Author | [facility] | | | and [place] | + + + | Organization | [facility] | | | and [place] | + + + | Address | Unknown | + + + | Phone | Unavailable | + + + Support + + + + + | Name | Relationship | Address | Phone | + + + + + | India Tilley | ECON | [address] | | | | | [place], [place] | | | | | [address] | | + + + + + | Yina La | ECON | Unknown | | + + + + + | Yina Peterson | ECON | Unknown | | + + + + + | Leatha Casillas | ECON | Unknown | | + + + + + Care Team Providers + +------+ + | Care Civil Structural Designer Name | Role | Phone | + +------+ + PCP | Unavailable | + +------+ + Encounter Details +--------+ + + + + | Date | Type | Department | Care Team | Description | +--------+ + + + + | 05/16/ | Hospital | [facility] | Patricia, | | | 2007 - | Encounter | [facility] | Venkatesh Forte MD [address] | | | | [place] [address] | [facility] | | | 06/12/ | | [place] | [place] [address] | | | 2007 | | [address] | [phone] | | | | | [phone] | | | +--------+ + + + [...]
--- OUTSIDE RECORDS SUMMARY | ~2019-08-24 | XMS | Encounter Summary ---
Demographics + + + | Address | [address] | | | [place] [address] | + + + | Home Phone [...] Author | [facility] | | | and [place] | + + + | Organization | [facility] | | | and [place] | + + + | Address | Unknown | + + + | Phone | Unavailable | + + + Support + + + + + | Name | Relationship | Address | Phone | + + + + + | India Tilley | ECON | [address] | | | | | [place], [place] | | | | | [address] | | + + + + + | Yina La | ECON | Unknown | | + + + + + | Yina Peterson | ECON | Unknown | | + + + + + | Leatha Casillas | ECON | Unknown | | + + + + + Care Team Providers + +------+ + | Care Armature Balancer Name | Role | Phone | + +------+ + PCP | Unavailable | + +------+ + Encounter Details +--------+ + + + + | Date | Type | Department | Care Team | Description | +--------+ + + + + | 01/10/ | Off-Site | [facility] | Gopi Muñoz | End stage renal | | 2018 | Visit | NEPHROLOGY [address] | M, DO [address] | disease (HCC) | | | | [address] | [place] | (Primary Dx) | | | | [place], [place] | [place], [place] | | | | | [address] | [address] | | | | | [phone] | | | +--------+ + + + [...] documented in this encounter Progress Notes Gopi Mñuoz DO - 01/10/2018 12:00 PM PDT Subjective: Patient ID: Estefani Tilley is a 72 y.o. female. 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 She also has depression, long standing HTN, [...]
--- OUTSIDE RECORDS SUMMARY | ~2019-08-24 | XMS | Encounter Summary ---
Demographics + + + | Address | [address] | | | [place] [address] | + + + | Home Phone [...] + + + | Author | [facility] | | | and [place] | + + + | Organization | [facility] | | | and [place] | + + + | Address | Unknown | + + + | Phone | Unavailable | + + + Support + + + + + | Name | Relationship | Address | Phone | + + + + + | India Tilley | ECON | [id number] | | | | | [place], [place] | | | | | [address] | | + + + + + | Yina La | ECON | Unknown | | + + + + + | Yina Peterson | ECON | Unknown | | + + + + + | Leatha Casillas | ECON | Unknown | | + + + + + Care Team Providers + +------+ + | Care Security Orderly Name | Role | Phone | + +------+ + PCP | Unavailable | + +------+ + Reason for Visit +--------+ + | Reason | Comments | +--------+ + | Other | Admission Records 06/20/2019-06/22/2019- [facility] . | +--------+ + Encounter Details +--------+ + + + + | Date | Type | Department | Care Team | Description | +--------+ + + + + | 06/27/ | Documentati | [facility] | Tabatha Patel, | Other (Admission | | 2019 | on | INFECTIOUS DISEASE | Senior Mechanical Design Engineer | Records | | | | [address] | | 06/20/2019- | | | | [place], [place] | | [facility] | | | | [address] | | [facility] . ) | | | | [phone] | | | +--------+ + + + [...] as of this encounter Progress Tabatha Rowley Senior Mechanical Design Engineer - 06/27/2019 10:44 AM PDTReceived records from [facility]. For patient admission from 06/20/2019-06/22/2019. Records were sent to scan. Yoko CMA. documen rich in this encounter Plan of Treatment Not on filedocumented as of this encounter Visit Diagnoses Not on filedocumented in this encounter"
--- OUTSIDE RECORDS SUMMARY | ~2019-08-24 | XMS | Encounter Summary ---
Demographics + + + | Address | [address] | | | [place] [address] | + + + | Home Phone [...] + + + | Author | [facility] | | | and [place] | + + + | Organization | [facility] | | | and [place] | + + + | Address | Unknown | + + + | Phone | Unavailable | + + + Support + + + + + | Name | Relationship | Address | Phone | + + + + + | India Tilley | ECON | [phone] | | | | | [place], [place] | | | | | [address] | | + + + + + | Yina La | ECON | Unknown | | + + + + + | Yina Peterson | ECON | Unknown | | + + + + + | Leatha Casillas | ECON | Unknown | | + + + + + Care Team Providers + +------+ + | Care Industrial Technology Teacher Name | Role | Phone | + +------+ + PCP | Unavailable | + +------+ + Encounter Details +--------+ + + + + | Date | Type | Department | Care Team | Description | +--------+ + + + + | 07/22/ | Hospital | [facility] | Gopi Muñoz | | | 2005 | Encounter | MED CTR XRAY [address] | M, DO [address] | | | | | [place] | [place] | | | | | [place] [address] | [place] | | | | | [phone] | [address] | | | | | [...]
--- OUTSIDE RECORDS SUMMARY | ~2019-08-24 | XMS | Encounter Summary ---
Demographics + + + | Address | [address] | | | [place] [address] | + + + | Home Phone [...] | [facility] | | | and [place] | + + + | Organization | [facility] | | | and [place] | + + + | Address | Unknown | + + + | Phone | Unavailable | + + + Support + + + + + | Name | Relationship | Address | Phone | + + + + + | India Tilley | ECON | [phone] | | | | | [place], [place] | | | | | [address] | | + + + + + | Yina La | ECON | Unknown | | + + + + + | Yina Peterson | ECON | Unknown | | + + + + + | Leatha Casillas | ECON | Unknown | | + + + + + Care Team Providers + +------+ + | Care Dry Chain Operator Name | Role | Phone | [...] + | 03/11/ | Telephone | [facility] | Santos Stephenson | Vascular Access | | 2018 | | SURGERY [address] | MD Kinga, FACS [address] | [address] | | | | [address] [place], [place] | [address] [facility] | | | | | [address] | [place] [address] | | | | | [phone] | [phone] | | | | | | | [...]
--- OUTSIDE RECORDS SUMMARY | ~2019-08-24 | XMS | Encounter Summary ---
Demographics + + + | Address | [address] | | | [place] [address] | + + + | Home Phone [...] Author | [facility] | | | and Kamaljitana | + + + | Organization | [facility] | | | and [place] | + + + | Address | Unknown | + + + | Phone | Unavailable | + + + Support + + + + + | Name | Relationship | Address | Phone | + + + + + | India Tilley | ECON | [address] | | | | | [place], [place] | | | | | [address] | | + + + + + | Yina La | ECON | Unknown | | + + + + + | Yina Peterson | ECON | Unknown | | + + + + + | Leatha Casillas | ECON | Unknown | | + + + + + Care Team Providers + +------+ + | Care Jewelry Manager Name | Role | Phone | [...] Line | | | | [address] [place] | [place] [address] | | | | | [address] | [phone] | | | | | [phone] | | | +--------+---------+ + + + [...] Up Appointments: ELI BALL [address] [facility] [phone] [facility] [address] [facility] [phone] [facility] [address] [facility] [phone] Discharge Disposition: Home with Home Health Consultants This Admission: ID, Nephrology Hospital Course: 73-year-old female with history of ESRD on hemodialysis, hypertension, type 2 diabetes, hyp othyroidism, chronic anemia, hyperlipidemia with a history of stroke transferred from [facility] for evaluation of T11-T12 lesion noted on [...] initially had planned to go to SNF ([facility] in [place], [place] - of which has accepted her and [...] dialysis days after dialysis Osteomyelitis/Discitis of T11, [id number] -MRI spine 03/23/19: "mild paravertebral soft tissue [...] dialysis patient - has OP clinic in [place] already Macrocytic anemia likely secondary to-likely anemia [...] Value Units Date/Time Culture, Aerobic + Anaerobic [[id number]] Collected: 03/24/191513 Order Status: Completed Lab Status: Final result Updated: 03/29/19717 Specimen: Body Fluid from Vertebrae, Thoracic FINAL REPORT -- No Growth No anaerobes isolated Gram Stain Few Neutrophils No squamous epithelial cells seen No organisms seen Comment: Performed by [facility] [address] [place] [address] Gram Stain [[id number]] Collected: 03/24/19 151 Order Status: Canceled Lab Status: No result Updated: 03/24/19 151 Specimen: Body Fluid from Vertebrae, Thoracic Culture, AFB Smear [[id number]] Collected: 03/24/191513 Order Status: Completed Lab Status: Preliminary result Updated: 03/25/19 1054 Specimen: Body Fluid from Vertebrae, Thoracic AFB Smear Result No Acid Fast Bacilli Seen Comment: Performed by [facility] [address] [place] [address] Culture, Fungus, Smear [[id number]] Collected: 03/24/19 151 Order Status: Completed Lab Status: Preliminary result Updated: 03/25/19 1039 Specimen: Body Fluid from Vertebrae, Thoracic CALCOFLUOR No fungal elements seen Comment: Performed by [facility] [address] [place] [address] Culture, Blood [[id number]] Collected: 03/23/19 2333 Order Status: Completed Lab Status: Final result Updated: 03/28/19 2352 Specimen: Blood Culture No growth after 5 days incubation. Culture, Blood [[id number]] Collected: 03/23/19 2255 Order Status: Completed Lab Status: Final result Updated: 03/28/19 9404 Specimen: Blood Culture No growth after 5 [...] this chart may have been created with [email or web address] voice recognition software. Occasi onal wrong-word or [...] | | | | | | | ([facility]), Right hip | | | | | [...] 03/31/2019 5:42 PM PDTPatient left with family, [facility] supplies and i nstructions received before discharge and RX's filled at outpt pharmacy. VSS, ambulating wit h SBA, A&O x4, accepting of discharge. Dialysis completed this AM. Pain controlled with q4 o xy, LD 1400. Home health will f/u tomorrow. AVS reviewed and sent with patient, verbalized u nderstanding. Merry Hess WAREHOUSE EXAMINER - 03/31/2019 11:05 AM PDTSOCIAL WORK PLAN: Home with [facility] NEXT STEPS: 1. Pt to follow up with [facility] 2. [facility] to follow up with pt at dc INTERVENTION: SW spoke with [facility], pt has a $2.50 out of pocket cost weekly, pt is agreeable to pay for this. Therefore pt will dc today with [facility]. ROBIN provided [facility] with hard script for IV abx. ROBIN faxed over HH order to [facility], ROBIN faxed over IV vanco script to [facility]. [facility] notified of pt's dc home. notified. [facility]ie to meet with pt later this afternoon for teach. ROBIN provided pt with 3 gas cards to assist with transportation. No further dc needs identified. SW received call from [facility] clinic that they cannot provide IV Vanco as Vanco h as not been consigned by [facility] that has privileges in [place]. IV Vanco will now be done b y [facility], [address] faxed over hard script to Candie. They will have both IV Abx ready and will teach pt shortly. No further dc needs identified. CONTACTS: Yina La: sister India Tilley: sister [place] Transportation: [place] Medicaid Transportation fax: [phone] [facility]: [phone] fax: [phone] [facility] [phone] [facility]: [phone] [facility]: [phone] [facility] FAX: [phone] Camryn Michelle DO Brandon - 03/31/2019 10:12 AM PDT Patient: Estefani Tilley Date of : 1945 Admit Date: 03/24/2019 Date of Service: 03/31/2019 PCP: Francisca Womack PA-C Hospital Day: Hospital Day: 8 Hospital Course: 73-year-old female with history of ESRD on hemodialysis, hypertension, type 2 diabetes, hyp othyroidism, chronic anemia, hyperlipidemia with a history of stroke transferred from [facility] for evaluation of T11-T12 lesion noted on [...] initially had planned to go to SNF ([facility] in [place], [place] - of which has accepted her [...] dialysis patient - has OP clinic in [place] already Macrocytic anemia likely secondary to-likely anemia [...] hoping to arrange home IV antibiotics through [facility]. Awaiting to see if insurance will cover [...] - 99 mg/dL Final Comment: Performed by [facility] [address] [place] [address] 03/30/2019 21:14 200 (H) 65 - 99 mg/dL Final Comment: Performed by [facility] [address] [place] [address] 03/30/2019 17:46 111 (H) 65 - 99 mg/dL Final Comment: Performed by [facility] [address] [place] [address] 12/09/2018 18:05 113 (H) 70 - 109 [...] this chart may have been created with [email or web address] voice recognition software. Occasi onal wrong-word or sound-alike substitutions may have occurred due to the inherent mckeon itations of voice recognition software. Please read the chart carefully and recognize, using context, where these substitutions have occurred rgJesus mcdonald MD - 03/31/2019 8:26 AM PDT . Infectious Diseases Progress Note Pt. Name/Age/: Estefani Tilley 73 y.o. 1945 Med. Record Number: [id number] Date of admission: 03/24/2019 Patient admitted with [...] Electronically signed by: Jesus Whitney, 03/31/2019 8:26 [facility] Robb Phillips, PharmD - 03/31/2019 7:25 AM PDTFormatting of this note might be different from the [facility] nal. Pharmacy Progress Note VANCOMYCIN PER [...] mg/dL (H)). Lab Results Component Value Date/Time [facility].0 03/31/2019 04:12 I/O last 3 completed shifts: In: 1810 [P.O.:1810] Out: 0 No intake/output data recorded. Micro/Cultures: BCx - NGTD, BiopsyCx - NGTD Per P&T-approved Vancomycin Protocol Electronically signed by: Robb Wheeler PharmD 03/31/2019 7:25 su, Randy Nunez MD - 03/30/2019 9:45 PM PDT [facility] INPATIENT ROUNDING NOTE Date of Service: 03/30/2019 Rounding Physician: Randy Corrigan MD Patient Name: Estefani Tilley : 1945 Medical Record: [id number] Hospital Summary: Estefani Tilley is a 73 y.o. female with a PMHx of ESRD, HTN, Dm type 2, hypothyroidism, HLd, CVA who is under the care of Dr Muñoz at [facility] who dialyzes MWF admitted with possible osteo [...] Trace Corrigan MD, 03/30/2019, 21:45 etNan wilkes, WAREHOUSE EXAMINER - 03/30/2019 2:34 PM PDT SOCIAL WORK D/C PLAN:DC home with [facility] providing IV-ABX and [facility] providing picc care and lab draws vs [facility] NEXT STEPS: -SW will need to follow up with [facility] regarding providing IV-ABX to pt. -SW will need to follow up with [facility] regarding providing picc care and lab draws. -SW will need to follow up with [facility] regarding having pt receive vanco do se while at dialysis center if pt is to go home with IV-ABX -SW will need to follow up with [facility] if pt is unable to go home with IV-ABX rega ridng pt's DC -SW will need to fax SNF orders, scripts and PASRR to [facility] if pt is unable to go home -SW will need to provide gas cards to pt's family for transportation home. INTERVENTION:SW spoke with pt regarding acceptance to [facility]. Pt is now wanting to go home with IV-ABX. SW spoke with [facility]. They go out to [place], [place] and have openings for nursing care. Referral faxed to [facility]. Pt is amenable to using [facility] for IV-ABX. SW spoke with CANDIE liasion who will run pt's be nefits to see if she can DC home with IV-ABX. Pt states that [facility] can provide teach to her son to help administer IV-ABX. SW left message for [facility] to see if they can provide vanco dose to pt at [facility] on Wednesday, Wednesday and Wednesday if pt is able to go home. Pt states that she does dialysis on Wednesday, Wednesday and Wednesday from 12:00-4:00. SW received phone call from [facility]. They have accepted pt for admission if [...] if pt is going to go to [facility]. ASSESSMENT/CHART REVIEW:73 yr old femalewith a history of ESRD on hemodialysis, hypertens ion, type 2 diabetes, hypothyroidism,chronic anemia,hyperlipidemia, hx of stroke [facility] lesion noted on MRI concerning fo r osteomyelitis. ROBIN met with pt's sister, Yina, and her cousin, Keri, who were waiting in pt's room while s he was in dialysis. ROBIN will need to follow up with pt re: d/c planning. Pt's sister and cousin related that pt mostly lives at Yina's house outside [place], [place], but does not like to be tied down because she enjoys attending [place] festivals and many events. She does at tend dialysis weekly. Pt has a vehicle and is very independent. D/C TRANSPORT:Pt can be transported home or to [facility] via family in a private car. They will need gas cards to help pay for transportation. BARRIERS TO D/C:none CONTACTS: Yina La: sister India Tilley: sister [place] Transportation: [place] Transportation fax: [phone] [facility]: [phone] fax: [phone] [facility] [phone] [facility]: [phone] [facility]: [phone] [facility] FAX: [phone] Nan Cheney MSW - 03/30/2019 12:57 PM PDTSOCIAL WORK D/C PLAN:SNF: [facility] NEXT STEPS:Await bed availability INTERVENTION: ROBIN called and left message for Roneugene at [facility] regarding if they are willing to accept pt and to discuss transportation to and from dialysis. SW also called and left message for [place] Medicaid transportation regarding if they can transp ort pt to and from dialysis upon DC. Pt states that she goes to [facility] dialys is in [place], [place] on Wed, Wed, and Fridays from 12:00-4:00 pm. SW left message with [facility] dialysis regarding if there was any way that they may also be able to help with transportation to and from dialysis while pt is in rehab and to ensure that pt still has her chair time scheduled. [facility] is only open M on, Wednesday and Wednesday. ASSESSMENT/CHART REVIEW:73 yr old femalewith a history of ESRD on hemodialysis, hypertens ion, type 2 diabetes, hypothyroidism,chronic anemia,hyperlipidemia, hx of stroke [facility] noted on MRI concerning fo r osteomyelitis. ROBIN met with pt's sister, Yina, and her cousin, Keri, who were waiting in pt's room while s he was in dialysis. ROBIN will need to follow up with pt re: d/c planning. Pt's sister and cousin related that pt mostly lives at Yina's house outside [place], [place], but does not like to be tied down because she enjoys attending [place] festivals and many events. She does at tend dialysis weekly. Pt has a vehicle and is very independent. D/C TRANSPORT:tbd BARRIERS TO D/C:none CONTACTS: Yina La: sister India Tilley: sister [place] Transportation: [place] Transportation fax: [phone] [facility]: [phone] fax: [phone] [facility] [phone] [facility]: [phone] signed by JENNIFER Xavier at 03/30 1:09 [...] with a history of stroke transferred from [facility] for evaluation of T11-T12 lesion noted [...] awaiting to hear from [facility], in [place] regarding possible acceptance. She is improved overall and medic ally ready for discharge. She is a chronic dialysis patient, Nephrology is following for on going dialysis needs. She will need three times weekly dialysis while at [facility] as well. SW t o [...] -Continue dialysis and management per nephrology -Has RUDoar fistula -Chronic dialysis patient - has OP clinic in [place] already ---> will need SW to help [...] SNF - awaiting to hear back from [facility], in [place], [place] regarding possible acceptance there. Medically ready [...] Single Lumen 03/24/19 2143 Left Lateral Forearm esee-lxw-dmhdla daniel ter system 20 gauge;1 / in [...] - 99 mg/dL Final Comment: Performed by [facility] [address] [place] [address] 03/29/2019 21:09 157 (H) 65 - 99 mg/dL Final Comment: Performed by [facility] [address] [place] [address] 03/29/2019 18:50 91 65 - 99 mg/dL Final Comment: Performed by [facility] [address] [place] [address] 12/09/2018 18:05 113 (H) 70 - 109 [...] this chart may have been created with [email or web address] voice recognition software. Occasi onal wrong-word or sound-alike substitutions may have occurred due to the inherent mckeon itations of voice recognition software. Please read the chart carefully and recognize, using context, where these substitutions have occurred rgJesus mcdonald MD - 03/30/2019 7:15 AM PDT . Infectious Diseases Progress Note Pt. Name/Age/: Estefani Tilley 73 y.o. 1945 Med. Record Number: [id number] Date of admission: 03/24/2019 Patient admitted with [...] Electronically signed by: Jesus Whitney, 03/30/2019 7:15 [facility] Mary Wade RN - 03/30/2019 6:16 AM [...] Bowel Movement: Stool Occurrence: 1(pt reported) (03/27/19 708) Active Infusions: dextrose 10% Skin: Skin Integrity: [...] [facility] Suicide Policy [facility] Suicide Risk/Telesitter Screening Utilizing this rating [...] POCGLU 112 (H) 12/08/2018 0650 Merry Hess WAREHOUSE EXAMINER - 03/29/2019 4:18 PM PDTSOCIAL WORK D/C PLAN:SNF: [facility] NEXT STEPS:Await bed availability INTERVENTION: SW called and spoke with admissions person at [facility], they are still discussing pt's case. They [...] anemia,hyperlipidemia, hx of stroke [facility] lesion noted on MRI concerning fo r osteomyelitis. SW met with pt's sister, Yina, and her cousin, Keri, who were waiting in pt's room while s he was in dialysis. SW will need to follow up with pt re: d/c planning. Pt's sister and cousin related that pt mostly lives at Yina's house outside [place], [place], but does not like to be tied down because she enjoys attending [place] festivals and many events. She does at tend dialysis weekly. Pt has a vehicle and is very independent. D/C TRANSPORT:tbd BARRIERS TO D/C:none CONTACTS: Yina La: sister India Tilley: sister [place] Medicaid Transportation: [facility]: [phone] fax: [phone] [facility] [phone] signed by JENNIFER Contreras at 03/29/2019 4:20 PM PDTHsu, Randy Nunez MD - 03/29/2019 12:32 PM PDT [facility] INPATIENT ROUNDING NOTE Date of Service: 03/29/2019 Rounding Physician: Randy Corrigan MD Patient Name: Estefani Tilley : 1945 Medical Record: [id number] Hospital Summary: Estefani Tilley is a 73 y.o. female with a PMHx of ESRD, HTN, Dm type 2, hypothyroidism, HLd, CVA who is under the care of Dr Muñoz at [facility] who dialyzes MWF admitted with possible osteo [...] with a history of stroke transferred from [facility] for evaluation of T11-T12 lesion noted on [...] dialysis patient - has OP clinic in [place] already ---> will need SW to help [...] SNF - awaiting to hear back from [facility], in [place], [place] regarding possible acceptance there. Could possibly [...] Single Lumen 03/24/19 2143 Left Lateral Forearm lheq-wfu-zqwfle daniel ter system 20 gauge;1 1/4 in [...] - 99 mg/dL Final Comment: Performed by [facility] [address] [facility] [place] [address] 03/28/2019 21:06 144 (H) 65 - 99 mg/dL Final Comment: Performed by [address] [facility] [place] [address] 03/28/2019 11:22 119 (H) 65 - 99 mg/dL Final Comment: Performed by [facility] [address] [place] [address] 12/09/2018 18:05 113 (H) 70 - 109 [...] this chart may have been created with [email or web address] voice recognition software. Occasi onal wrong-word or [...] Tilley 73 y.o. 1945 Med. Record Number: [id number] Date of admission: 03/24/2019 Patient admitted with [...] Electronically signed by: Jesus Whitney, 03/29/2019 7:35 [facility] zech, Carolina Restrepo RN - 03/28/2019 7:08 PM [id number] - Report called to [facility] RN. Pt's belongings . I pad and I phone w/ chargers as well as pt's purse, and shoes, and shirt and pants all sent with her to [address] [place] [address]. Pt had been sitting up eating dinner. [...] for time spent with her. Noti fied [address] [place] [address] RN of pt's recent loss. Transferred at [...] with a history of stroke transferred from [facility] for evaluation of T11-T12 lesion noted on [...] Single Lumen 03/24/19 2143 Left Lateral Forearm noyd-aks-afyvta daniel ter system 20 gauge;1 1/4 in [...] - 99 mg/dL Final Comment: Performed by [facility] [address] [place] [address] 03/28/2019 07:09 75 65 - 99 mg/dL Final Comment: Performed by [facility] [address] [place] [address] 03/27/2019 20:38 109 (H) 65 - 99 mg/dL Final Comment: Performed by [facility] [address] [place] [address] 12/09/2018 18:05 113 (H) 70 - 109 [...] this chart may have been created with [email or web address] voice recognition software. Occasi onal wrong-word or sound-alike substitutions may have occurred due to the inherent mckeon itations of voice recognition software. Please read the chart carefully and recognize, using context, where these substitutions have occurred Cordell Mcgarry, [facility] - 03/28/2019 2:57 PM PDTSOCIAL WORK D/C PLAN: SNF: [facility] NEXT STEPS: Await bed availability INTERVENTION: On-going dc planning. Rec'd update from [facility]. They confirm they have r ec'd clinical notes and are currently reviewing. SW will follow. ASSESSMENT/CHART REVIEW:73 yr old femalewith a history of ESRD on hemodialysis, hypertens ion, type 2 diabetes, hypothyroidism,chronic anemia,hyperlipidemia, hx of stroke [facility] lesion noted on MRI concerning fo r osteomyelitis. SW met with pt's sister, Yina, and her cousin, Keri, who were waiting in pt's room while s he was in dialysis. SW will need to follow up with pt re: d/c planning. Pt's sister and co usin related that pt mostly lives at Yina's house outside [facility], but does not like to be tied down because she enjoys attending [place] festivals and many events. She does atten d dialysis weekly. Pt has a vehicle and is very independent. D/C TRANSPORT: tbd BARRIERS TO D/C: none CONTACTS: Yina La: sister India Tilley: sister [facility]: [phone] fax: [phone] [facility] [phone] illum, Mario Alberto morales MD - 03/28/2019 7:34 AM PDTFormatting of this note might be different from the [facility] Infectious Diseases Progress Note Pt. Name/Age/: Estefani Tilley 73 y.o. 1945 Med. Record Number: [id number] Date of admission: 03/24/2019 Patient admitted with [...] Electronically signed by: Carlos Jansen, 03/28/2019 7:34 [facility] Katey Solis MD - 03/27/2019 8:58 PM PDT Patient: Estefani Tilley Date of : 1945 Admit Date: 03/24/2019 Date of Service: 03/27/2019 PCP: Francisca Womack PA-C Hospital Day: Hospital Day: 4 Hospital Course: 73-year-old female with history of ESRD on hemodialysis, hypertension, type 2 diabetes, hyp othyroidism, chronic anemia, hyperlipidemia with a history of stroke transferred from [facility] for evaluation of T11-T12 lesion noted on MRI concerning for osteomyeliti s. Infectious disease consulted. Status post aspiration from her thoracic spine, Gram stain negative, cultures pending. Rosemary ent started on empiric vancomycin and cefepime. Will need 6 weeks of IV antibiotics. Discussed with nephrology, recommend placement of Tillman catheter instead of PICC line for penitentiary IV antibiotics. Nephrology following for maintenance hemodialysis. SW following for SNF. Assessment and Plan: Assessment of active problems addressed today: Osteomyelitis/discitis of T11, T12 vertebra Afebrile, improved WBC count, improved CRP Status post aspiration from her thoracic spine, Gram stain negative, cultures pending- [facility] Infectious disease help appreciated Continue vancomycin and cefepime Echocardiogram negative for any endocarditis. Patient will need IV antibiotics for 6 weeks. Continue probiotic Discussed with nephrology, recommend placement of Tillman catheter instead of PICC line for penitentiary IV antibiotics. Pain management -trial of lidocaine [...] Single Lumen 03/24/19 2143 Left Lateral Forearm fggu-ikl-jchxeo daniel ter system 20 gauge;1 09/16 in [...] - 99 mg/dL Final Comment: Performed by [facility] [address] [place] [address] 03/27/2019 13:58 82 65 - 99 mg/dL Final Comment: Performed by [facility] [address] [place] [address] 03/27/2019 06:39 83 65 - 99 mg/dL Final Comment: Performed by [facility] [address] [place] [address] 12/09/2018 18:05 113 (H) 70 - 109 [...] this chart may have been created with [email or web address] voice recognition software. Occasi onal wrong-word or sound-alike substitutions may have occurred due to the inherent mckeon itations of voice recognition software. Please read the chart carefully and recognize, using context, where these substitutions have occurred Darlin Mcgarry, [facility] [facility] - 03/27/2019 3:17 PM PDTSOCIAL WORK D/C PLAN: SNF: [facility] NEXT STEPS: Await bed availability INTERVENTION: Rec'd call from Emili at [facility]. She states the contracted f acility near pt's home is [facility]. Spoke with pt and with sister India. Referral and (-) Pasrr sent to [facility]. Copy of Pasrr placed in light chart with request to file into jos rds. SW will follow. ASSESSMENT/CHART REVIEW:73 yr old femalewith a history of ESRD on hemodialysis, hypertens ion, type 2 diabetes, hypothyroidism,chronic anemia,hyperlipidemia, hx of stroke transfe [facility]red [facility] of T11-T12 lesion noted on MRI [...] be tied down because she enjoys attending [place] festivals and many events. She does atten d dialysis weekly. Pt has a vehicle and is very independent. D/C TRANSPORT: tbd BARRIERS TO D/C: none CONTACTS: Yina La: sister India Tilley: sister [facility]: [phone] fax: [phone] [facility] [phone] Gregg Mcgarry ORE TESTER - 03/27/2019 2:17 PM PDTFormatting of this note might be different from jerald more. SOCIAL WORK D/C PLAN: SNF NEXT STEPS: SW to follow up with pt regarding SNF preference INTERVENTION: On-going dc planning, chart reviewed and met with pt. Discussed need of medical information specialist IV abx, Discussed options. Provided list of [...] be tied down because she enjoys attending [place] festivals and many events. She does atten d dialysis weekly. Pt has a vehicle and is very independent. ASSESSMENT/CHART REVIEW:73 yr old femalewith a history of ESRD on hemodialysis, hypertens ion, type 2 diabetes, hypothyroidism,chronic anemia,hyperlipidemia, hx of stroke [facility] T[facility]-T12 lesion noted on MRI concerning fo r osteomyelitis. D/C TRANSPORT: tbd BARRIERS TO D/C: none CONTACTS: Yina La Sister [phone] India Tilley Sister [phone] Irish Cadet, Bottoming Room Supervisor - 03/27/2019 1:33 PM PDTFormatting of this [...] mg/dL (H)). Lab Results Component Value Date/Time VANCGRANTSVILLENDOM 17.7 03/27/2019 05:12 I/O last 3 completed shifts: In: 360 [P.O.:360] Out: 1 [Urine:1] I/O this shift: In: - Out: 2000 Micro/Cultures: BCx - NGTD, BiopsyCx - NGTD Per P&T-approved Vancomycin Protocol Electronically signed by: Aimee Carroll, Bottoming Room Supervisor 03/27/2019 13:33Electronically si gned by Ray Joel, PharmD at 03/27/2019 2:04 PM PDT Associated attestation - Ray Joel PharmD - 03/27/2019 2:04 PM PDTI reviewed and agr ee with the assessment and plan. Ray Joel PharmD 03/27/2019 14:04 Randy Corrigan MD - 03/27/2019 10:52 AM PDT [facility] INPATIENT ROUNDING NOTE Date of Service: 03/27/2019 Rounding Physician: Randy Corrigan MD Patient Name: Estefani Tilley : 1945 Medical Record: [id number] Hospital Summary: Estefani Tilley is a 73 y.o. female with a PMHx of ESRD, HTN, Dm type 2, hypothyroidism, HLd, CVA who is under the care of Dr Muñoz at [facility] who dialyzes MWF admitted with possible osteo [...] Infectious Diseases Progress Note Pt. Name/Age/: Estefani iTlley 73 y.o. 1945 Med. Record Number: [id number] Date of admission: 03/24/2019 Patient admitted with [...] Electronically signed by: Carlos Jansen, 03/27/2019 7:10 [facility] Katey Solis MD - 03/26/2019 5:40 PM PDT Patient: Estefani Tliley Date of : 1945 Admit Date: 03/24/2019 Date of Service: 03/26/2019 PCP: Francisca Womack PA-C Hospital Day: Hospital Day: 3 Hospital Course: 73-year-old female with history of ESRD on hemodialysis, hypertension, type 2 diabetes, hyp othyroidism, chronic anemia, hyperlipidemia with a history of stroke transferred from [facility] for evaluation of T11-T12 lesion noted on [...] Single Lumen 03/24/19 2143 Left Lateral Forearm oddj-csj-rwwcri daniel ter system 20 gauge;1 09/16 in [...] - 99 mg/dL Final Comment: Performed by [facility] [address] [place] [address] 03/26/2019 06:49 116 (H) 65 - 99 mg/dL Final Comment: Performed by [facility] [address] [place] [address] 03/25/2019 20:37 110 (H) 65 - 99 mg/dL Final Comment: Performed by [facility] [address], [place] [address] 12/09/2018 18:05 113 (H) 70 - 109 [...] this chart may have been created with [email or web address] voice recognition software. Occasi onal wrong-word or sound-alike substitutions may have occurred due to the inherent mckeon itations of voice recognition software. Please read the chart carefully and recognize, using context, where these substitutions have occurred Jose Gamez, Pharmacy R esident - 03/26/2019 10:52 AM PDTFormatting of this note might be different from the [facility] Progress Note VANCOMYCIN PER [...] Vancomycin Protocol Electronically signed by: Jose Menard, Bottoming Room Supervisor 03/26/2019 10:52 sRandy carter MD - 03/26/2019 1 0:38 AM PDT [facility] INPATIENT ROUNDING NOTE Date of Service: 03/26/2019 Rounding Physician: Randy Corrigan MD Patient Name: Estefani Tilley : 1945 Medical Record: [id number] Hospital Summary: Estefani Tilley is a 73 y.o. female with a PMHx of ESRD, HTN, Dm type 2, hypothyroidism, HLd, CVA who is under the care of Dr Muñoz at [facility] who dialyzes MWF admitted with possible osteo disccitis t11/t12 ASSESSMENT AND PLAN 1. ESRD/HD dependent Access is LUE AVF working well No indications for HD today Usually dialyzes MWF at [facility] Hd tommorow 2. Anemia Hg at goal [...] Tilley 73 y.o. 1945 Med. Record Number: [id number] Date of admission: 03/24/2019 Patient admitted with [...] LVOT peak skye 104 cm/s AV peak syke 193 cm/s AV peak gradient 14.9 mmHg [...] Electronically signed by: Carlos Jansen, 03/26/2019 8:03 [facility] Katey Solis MD - 03/25/2019 3:50 PM PDT Patient: Estefani Tilley Date of : 1945 Admit Date: 03/24/2019 Date of Service: 03/25/2019 PCP: Francisca Womack PA-C Hospital Day: Hospital Day: 2 Hospital Course: 73-year-old female with history of ESRD on hemodialysis, hypertension, type 2 diabetes, hyp othyroidism, chronic anemia, hyperlipidemia with a history of stroke transferred from [facility] for evaluation of T11-T12 lesion noted on [...] Single Lumen 03/24/19 2143 Left Lateral Forearm aiup-gfj-znwldf daniel ter system 20 gauge;1 1/4 in [...] - 99 mg/dL Final Comment: Performed by [facility] [address] [place] [address] 03/25/2019 06:52 107 (H) 65 - 99 mg/dL Final Comment: Performed by [facility] [address] [place] [address] 03/24/2019 20:11 112 (H) 65 - 99 mg/dL Final Comment: Performed by [facility] [address] [place] [address] 12/09/2018 18:05 113 (H) 70 - 109 [...] this chart may have been created with [email or web address] voice recognition software. Occasi onal wrong-word or sound-alike substitutions may have occurred due to the inherent mckeon itations of voice recognition software. Please read the chart carefully and recognize, using context, where these substitutions have occurred su, Randy Nunez MD - 0 03/25/2019 1:47 PM PDT [facility] INPATIENT ROUNDING NOTE Date of Service: 03/25/2019 Rounding Physician: Randy Corrigan MD Patient Name: Estefani Tilley : 1945 Medical Record: [id number] Hospital Summary: Estefani Tilley is a 73 y.o. female with a PMHx of ESRD, HTN, Dm type 2, hypothyroidism, HLd, CVA who is under the care of Dr Muñoz at [facility] who dialyzes MWF admitted with possible osteo disccitis t11/t12 ASSESSMENT AND PLAN 1. ESRD/HD dependent Access is LUE AVF working well No indications for HD today Usually dialyzes MWF at [facility] She is below her EDW an EDW [...] by: Trace Corrigan MD, 03/25/2019, 13:47 ettlerNan, WAREHOUSE EXAMINER - 03/25/2019 10:49 AM PDT SOCIAL WORK [...] mostly lives at Yina's house outside [facility] [place], but does not like to be tied down because she enjoys attending [place] festivals and many events. She does atten d dialysis weekly. Pt has a vehicle and is very independent. ASSESSMENT/CHART REVIEW:73 yr old femalewith a history of ESRD on hemodialysis, hypertens ion, type 2 diabetes, hypothyroidism,chronic anemia,hyperlipidemia, hx of stroke [facility] lesion noted on MRI concerning fo r osteomyelitis. D/C TRANSPORT: tbd BARRIERS TO D/C: none CONTACTS: Yina La Sister [phone] India Tilley Sister [phone] Carlos Gonzales M D - 03/25/2019 8:34 AM PDT Infectious Diseases Progress Note Pt. Name/Age/: Estefani Tilley 73 y.o. 1945 Med. Record Number: [id number] Date of admission: 03/24/2019 Patient admitted with [...] Electronically signed by: Carlos Jansen, 03/25/2019 8:34 [facility] Jose Gamez, Bottoming Room Supervisor - 03/24/2019 10:46 PM PDTFormatting of this [...] Vancomycin Protocol Electronically signed by: Jose Menard, Bottoming Room Supervisor 03/24/2019 22:46 ladys England MSW - 9 [...] pt mostly lives at Yina's house outside [place], [place], but do es not like to be tied down because she enjoys attending [place] festivals and many events. She does attend dialysis weekly. Pt has a vehicle and is very independent. ASSESSMENT/CHART REVIEW:73 yr old female with a history of ESRD on hemodialysis, hypertensi on, type 2 diabetes, hypothyroidism, chronic anemia, hyperlipidemia, hx of stroke transferre d from [facility] for evaluation of T11-T12 lesion noted on MRI concerning for ost eomyelitis. D/C TRANSPORT: tbd BARRIERS TO D/C: none CONTACTS: Yina La Sister [phone] India Tilley Sister [phone] Katey Solis MD - 03/24/2019 3:53 PM PDTPatient seen and examined. Chart reviewed. Briefly, 73-year-old female with history of ESRD on hemodialysis, hypertension, type 2 diab etes, hypothyroidism, chronic anemia, hyperlipidemia with a history of stroke transferred [facility] of T11-T12 lesion [...] not have any p raza, consider antidepressants. sill worker consulted for concerns for housing concerns [...] 1250 mg IV once given 03/23 @ 6371 at [facility]. 2. [employer] Trough: 15-20 mcg/ml [...] Procedure Component Value Units Date/Time Culture, Blood [[id number]] Collected: 03/23/192332 Order Status: Sent Lab Status: In process Updated: 03/23/192348 Specimen: Blood Culture, Blood [[id number]] Collected: 03/23/192254 Order Status: Sent Lab Status: [...] | [facility] | | | POC | [facility] [address], | | SACRED | | | | [place] [address] | | HEART | | | |Performed by [facility] [address], [place] [address] | | MEDICAL | | | | [...] + + | BETH [facility]Z | [address] | [place] [address] | | | [facility] | | | | | [...] | [facility] | | | POC | [facility] [address], | | SACRED | | | | [place], [place] | | HEART | | | |Performed by [facility] [address], [place], [place] | | MEDICAL | | | [...] SACRED | [address] | [place], [place] | | | HEART MEDICAL CENTER [...] | | LABORATORY | | | | [facility] [address] [place], | | CERNER | | | | [place] [address] | | | | + + + + + + + + | Specimen | + + | Blood specimen | | (specimen) | + + + + + + + | Performing | Address | City/State/Zipcode | Phone Number | | Organization | | | | + + + + + | BETH [facility]Z | [address] | [place] [address] | | | [facility] | | | | | [...] ENCE | | | Immature | by [facility] [address], | K/uL | SACRED | | | Granulocyte | [place] [address] | | HEART | | | s |Performed by [facility] [address], [place] [address] | | MEDICA L | | | [...] PROVIDEJOSE AE AGUSTO | [address] | [place] [address] | | | [facility] | | | | | [...] by | | | | | | [facility] [address], | | | | | | [place] [address] | | | | + + + + + + + + | Specimen | + + | Blood specimen | | (specimen) | + + + + + + + | Performing | Address | City/State/Zipcode | Phone Number | | Organization | | | | + + + + + | PROVIDEJOSE AE SACRED | [address] | [place] [address] | | | HEART [facility] | | | | [...] | | | POC | Performed by [facility] [address] | | SACRED | | | | [address] [place], [place] | | HEART | | | | [address] | | MEDICAL | | | | [...] + + | BETH LIZ | [address] | [place] [address] | | | [facility] | | | | | [...] | | | POC | Performed by [facility] [address] | | SACRED | | | | [address] [place], [place] | | HEART | | | | [address] | | MEDICAL | | | | [...] | [address] | [place] [address] | | | HEART MEDICAL CENTER | [...] | | | POC | Performed by [facility] [address] | | SACREVANS | | | | [address], [place] | | HEART | | | | [address] | | MEDICAL | | | | [...] + | BETH LIZ | [address] | [place] [address] | | | [facility] | | | | | [...] | | | POC | Performed by [facility] [address] | | SACRED | | | | [address], [place] | | HEART | | | | [address] | | MEDICAL | | | | [...] SACRED | [address] | [place], [place] | | | HEART [facility] | | | | | LABORATORY [...] PROVIDE NCE | | | | by [facility] [address], | | SACRED | | | | [place] | | HEART | | | |Performed by [facility] [address], [place], [place] | | MEDICAL | | | [...] + + | BETH [facility]Z | [address] | [place] [address] | | | [facility] | | | | | [...] LUIS CE | | | | by [facility] [address], | | SACRED | | | | [place] [address] | | HEART | | | |Performed by [facility] [address], [place] [address] | | MEDICAL | | | | [...] + + | JIMRENUKA LIZ | [address] | [place] [address] | | | [facility] | | | | | [...] | | LABORATORY | | | | [facility] [address], | | CERNER | | | | [place] [address] | | | | + + + + + + + + | Specimen | + + | Blood specimen | | (specimen) | + + + + + + + | Performing | Address | City/State/Zipcode | Phone Number | | Organization | | | | + + + + + | BETH LIZ | [address] | [place] [address] | | | [facility] | | | | | [...] ENCE | | | Counted | by [facility] [address], | | SACRED | | | | [place] [address] | | HEART | | | |Performed by [facility] [address], [place] [address] | | MEDICA L | | | [...] + | BETH LIZ | [address] | [place] [address] | | | [facility] | | | | | [...] | | | POC | Performed by [facility] [address] | | SACRED | | | | [address] [place] | | HEART | | | | [address] | | MEDICAL | | | | [...] SACRED | [address] | [place] | | | [facility] | | | | | [...] PROVIDEJOSE AE | | | POC | [facility] [address], | | SACRED | | | | [place] | | HEART | | | |Performed by [facility] [address], [place] [address] | | MEDICAL | | | | [...] + + + + + | BTEH LIZ | [address] | [place] [address] | | | HEART MEDICAL CENTER | [...] | | | POC | Performed by [facility] [address] | | SACRED | | | | [address] [place], [place] | | HEART | | | | [address] | | MEDICAL | | | | [...] + + | BETH LIZ | [address] | [place] [address] | | | [facility] | | | | | [...] PROVIDEJOSE AE | | | POC | [facility] [address], | | SACRED | | | | [place] [address] | | HEART | | | |Performed by [facility] [address], [place] | | MEDICAL | | | [...] | [address] | [place] | | | [facility] | | | | | [...] by | | | | | | [facility] [address], | | | | | | [place] [address] | | | | + + + + + + + + | Specimen | + + | Blood specimen | | (specimen) | + + + + + + + | Performing | Address | City/State/Zipcode | Phone Number | | Organization | | | | + + + + + | BETH LIZ | [address] | [place] [address] | | | [facility] | | | | | [...] ENCE | | | Counted | by [facility] [address], | | SACRED | | | | [place] [address] | | HEART | | | |Performed by [facility] [address], [place] [address] | | MEDICA L | | | [...] + | BETH LIZ | [address] | [place] [address] | | | [facility] | | | | | [...] PROVIDEN CE | | | | by [facility] [address], | | SACRED | | | | [place] [address] | | HEART | | | |Performed by [facility] [address], [place] [address] | | MEDICAL | | | | [...] SACRED | [address] | [place] [address] | | | [facility] | | | | | [...] | | LABORATORY | | | | [facility] [address] [place], | | [place] | | | | [place] [address] | | | | + + + + + + + + | Specimen | + + | Blood specimen | | (specimen) | + + + + + + + | Performing | Address | City/State/Zipcode | Phone Number | | Organization | | | | + + + + + | JIMJOSE ADora LIZ | [address] | [place] [address] | | | [facility] | | | | | [...] | | | POC | Performed by [facility] [address] | | SACRED | | | | [address] [place] | | HEART | | | | [address] | | MEDICAL | | | | [...] + + | BETH LIZ | [address] | [place] [address] | | | [facility] | | | | | [...] | | | POC | Performed by [facility] [address] | | SACRED | | | | [address] [place], [place] | | HEART | | | | [address] | | MEDICAL | | | | [...] | + + + + + | JIMOJSE ADora AGUSTO | [address] | [place] [address] | | | [facility] | | | | | [...] | PROVIDENCE | | | POC | [facility] [address], | | SACRED | | | | [place] [address] | | HEART | | | |Performed by [facility] [address], [place] [address] | | MEDICAL | | | | [...] [address] | [place] [address] | | | [facility] | | | | [...] | 14 (L)Comment: eGFR<60 | >=90 | PROVIDEIDE | | | GFR | consistent with impaired | mL/min/1.73m2 | SACRED | | | | kidney function.For | | HEART | | | | Americans, | | MEDICAL | | | | multiply the calculated | | CENTER | | | | GFR by 1.210Performed by | | LABORATORY | | | | [facility] [address], | | CERNER | | | | [place] [address] | | | | + + + + + + + + | Specimen | + + | Blood specimen | | (specimen) | + + + + + + + | Performing | Address | City/State/Zipcode | Phone Number | | Organization | | | | + + + + + | B[facility] | [address] | [place] [address] | | | [facility] | | | | | [...] PROVIDE NCE | | | | by [facility] [address], | | SACRED | | | | [place] [address] | | HEART | | | |Performed by [facility] [address], [place] [address] | | MEDICAL | | | | [...] + | BETH LIZ | [address] | [place] [address] | | | [facility] | | | | | [...] | | | POC | Performed by [facility] [address] | | SACRED | | | | [address], [place] | | HEART | | | | [address] | | MEDICAL | | | | [...] [address] | [place] [address] | | | HEART MEDICAL CENTER | [...] | | | POC | Performed by [facility] [address] | | SACRED | | | | [address] [place] | | HEART | | | | [address] | | MEDICAL | | | | [...] + + | BETH LIZ | [address] | [place] [address] | | | [facility] | | | | | [...] | PROVIDENCE | | | POC | [facility] [address], | | SACRED | | | | [place] [address] | | HEART | | | |Performed by [facility] [address], [place] [address] | | MEDICAL | | | | [...] Ave. | [place] | | | [facility] | | | | | [...] | RIMAE | | | POC | [facility] [address], | | SACRED | | | | [place] | | HEART | | | |Performed by [facility] [address], [place] [address] | | MEDICAL | | | | [...] + | BETH LIZ | [address] | [place] [address] | | | [facility] | | | | [...] by | | | | | | [facility] [address], | | | | | | [place] [address] | | | | + + + + + + + + | Specimen | + + | Blood specimen | | (specimen) | + + + + + + + | Performing | Address | City/State/Zipcode | Phone Number | | Organization | | | | + + + + + | JIMRENUKA LIZ | [address] | [place] [address] | | | [facility] | | | | | [...] | | | POC | Performed by [facility] [address] | | SACRED | | | | [address] [place] | | HEART | | | | [address] | | MEDICAL | | | | [...] [address] | [place] [address] | | | [facility] | | | | [...] | | | POC | Performed by [facility] [address] | | SACRED | | | | [address], [place] | | HEART | | | | [address] | | MEDICAL | | | | [...] + | JIMJOSE ADora AGUSTO | [address] | [place] [address] | | | [facility] | | | | | [...] | | | POC | Performed by [facility] [address] | | SACRED | | | | [address] [place] | | HEART | | | | [address] | | MEDICAL | | | | [...] SACRED | [address] | [place] [address] | | | [facility] | | | | | [...] BETH | | | | Performed by [facility] [address] | | AGUSTO | | | | [address], [place] | | HEART | | | | [address] | | MEDICAL | | | | [...] JIMJOSE ADora LIZ | [address] | [place] [address] | | | [facility] | | | | | [...] | | | POC | Performed by [facility] [address] | | SACRED | | | | [address] [place], [place] | | HEART | | | | [address] | | MEDICAL | | | | [...] + + | PROVIDENCE SACRED | [address] | [place] [address] | | | [facility] | | | | | [...] by | | | | | | [facility] [address], | | | | | | [place] [address] | | | | + + + + + + + + | Specimen | + + | Blood specimen | | (specimen) | + + + + + + + | Performing | Address | City/State/Zipcode | Phone Number | | Organization | | | | + + + + + | BETH LIZ | [address] | [place] [address] | | | [facility] | | | | | [...] | | LABORATORY | | | | [facility] [address] [place], | | [place] | | | | [place] [address] | | | | + + + + + + + + | Specimen | + + | Blood specimen | | (specimen) | + + + + + + + | Performing | Address | City/State/Zipcode | Phone Number | | Organization | | | | + + + + + | BETH [facility]Z | [address] | [place] [address] | | | HEART [facility] | | | | [...] PROVIDE NCE | | | | by [facility] [address], | | SACRED | | | | [place] [address] | | HEART | | | |Performed by [facility] [address], [place] [address] | | MEDICAL | | | | [...] LIZ | [address] | [place] [address] | | | HEART [facility] | | | | | LABORATORY [...] CE | | | B-12 | by [facility] [address], | | SACRED | | | | [place] [address] | | HEART | | | |Performed by [facility] [address], [place] [address] | | MEDICAL | | | | [...] + + | [facility] | [address] | [place] [address] | | | [facility] | | | | | [...] by | | | | | | [facility] [address], | | | | | | [place] [address] | | | | + + + + + + + + | Specimen | + + | Blood specimen | | (specimen) | + + + + + + + | Performing | Address | City/State/Zipcode | Phone Number | | Organization | | | | + + + + + | BETH LIZ | [address] | [place] [address] | | | [facility] | | | | | [...] | | | POC | Performed by [facility] [address] | | SACRED | | | | [address] [place] | | HEART | | | | [address] | | MEDICAL | | | | [...] [address] | [place] [address] | | | [facility] | | | | | [...] | | | POC | Performed by [facility] [address] | | SACRED | [...] | | | POC | Performed by [facility] [address] | | SACRED | | | | [place] | | HEART | | | | [address] | | MEDICAL | | | | [...] + + | BETH LIZ | [address] | [place] [address] | | | [facility] | | | | | [...] PROVIDE NCE | | | | by [facility] [address], | | SACRED | | | | [place] [address] | | HEART | | | |Performed by [facility] [address], [place] [address] | | MEDICAL | | | | [...] + | BETH LIZ | [address] | [place] [address] | | | [facility] | | | | | [...] LUIS CE | | | | by [facility] [address], | | SACRED | | | | [place] [address] | | HEART | | | |Performed by [facility] [address], [place] [address] | | MEDICAL | | | | [...] + + | RIMAE AGUSTO | [address] | [place] [address] | | | [facility] | | | | | [...] | | LABORATORY | | | | [facility] [address], | | [place] | | | | [place] [address] | | | | + + + + + + + + | Specimen | + + | Blood specimen | | (specimen) | + + + + + + + | Performing | Address | City/State/Zipcode | Phone Number | | Organization | | | | + + + + + | JIMRENUKA LIZ | [address] | [place] [address] | | | [facility] | | | | | [...] Volume | | | | | | (Liam's) | | | | | + +---------+ [...] | | | POC | Performed by [facility] [address] | | SACRED | | | | [address] [place] | | HEART | | | | [address] | | MEDICAL | | | | [...] + | JIMJOSE ADora AGUSTO | [address] | [place] [address] | | | [facility] | | | | | [...] | | | POC | Performed by [facility] [address] | | SACRED | | | | [address] [place] | | HEART | | | | [address] | | MEDICAL | | | | [...] SACRED | [address] | [place] [address] | | | [facility] | | | | | [...] | SACRED | | | Total | [address] | | HEART | | | | [address] [place], [place] | | MEDICAL | | | | [phone] | | CENTER | | | | Lauro HOLDEN [phone] | | LABORATORY | | | | [...] + | BETH LIZ | [address] | [place] [address] | | | [facility] | | | | | [...] | SACRED | | | | by [facility] [address], | | HEART | | | | [place] [address] | | MEDICAL | | | | [...] SACRED | [address] | [place] [address] | | | [facility] | | | | | [...] | SACRED | | | | by [facility] [address], | | HEART | | | | [place] [address] | | MEDICAL | | | | [...] + + | BETH LIZ | [address] | [place] [address] | | | [facility] | | | | | [...] | MEDICAL | | | | by [facility] [address], | | CENTER | | | | [place] [address] | | LABORATORY | | | |Performed by [facility] [address], [place] [address] | | CERNER | | | | [...] | [facility] | [address] | [place] [address] | | | [facility] | | | | | [...] | | | POC | Performed by [facility] [address] | | SACREVANS | | | | [place] | | HEART | | | | [address] | | MEDICAL | | | | [...] + | BETH LIZ | [address] | [place] [address] | | | [facility] | | | | | [...] | | | POC | Performed by [facility] [address] | | SACRED | | | | [address] [place] | | HEART | | | | [address] | | MEDICAL | | | | [...] SACRED | [address] | [place] [address] | | | HEART MEDICAL CENTER | [...] CENTER | | | | 3.5Performed by [facility] 101 | | LABORATORY | | | | [address] [place] | | [place] | | | | [address] | | | | + + + + + + + + | Specimen | + + | Blood specimen | | (specimen) | + + + + + + + | Performing | Address | City/State/Zipcode | Phone Number | | Organization | | | | + + + + + | BETH LIZ | [address] | [place] [address] | | | [facility]ENTER | | | | [...] | HEART | | | s | [phone] | | MEDICAL | | | | [...] + | BETH LIZ | [address] [place] [address]. | [place] [address] | | | [facility] | | | | | [...] | | LABORATORY | | | | [facility] [address], | | [place] | | | | [place] [address] | | | | + + + + + + + + | Specimen | + + | Blood specimen | | (specimen) | + + + + + + + | Performing | Address | City/State/Zipcode | Phone Number | | Organization | | | | + + + + + | [facility] | [address] | [place] [address] | | | [facility] | | | | | [...] | | | | First dose on [facility] 03/30/19 at 1130 | | AM [...] scheduled: AC, NPO, Daytime | | | 2886-6800 Use NIGHT DOSE for | | | doses scheduled: HS, 3AM, | | | Nighttime 7089-1160 If the BG is | | | [...]
--- OUTSIDE RECORDS SUMMARY | ~2019-08-24 | XMS | Encounter Summary ---
Demographics + + + | Address | [address] | | | [place] [address] | + + + | Home Phone [...] + + | Author | [facility] | | | and [place] | + + + | Organization | [facility] | | | and [place] | + + + | Address | Unknown | + + + | Phone | Unavailable | + + + Support + + + + + | Name | Relationship | Address | Phone | + + + + + | India Tilley | ECON | [address] | | | | | [place], [place] | | | | | [address] | | + + + + + | Yina La | ECON | Unknown | | + + + + + | Yina Peterson | ECON | Unknown | | + + + + + | Leatha Casillas | ECON | Unknown | | + + + + + Care Team Providers + +------+ + | Care Director Of Public Health Name | Role | Phone | + +------+ + PCP | Unavailable | + +------+ + Encounter Details +--------+ + + + + | Date | Type | Department | Care Team | Description | +--------+ + + + + | 11/08/ | Imaging | [facility] | Provider, | | | 2018 | Exam | MED CTR EXTERNAL | [address] | | | | | IMAGING | [address] | | | | | [phone] | [place] [address] | | +--------+ + + + + [...] for comparison only - no result from [place]. | [facility] | + + + + +---------+ + + | Performing | Address | City/State/Zipcode | Phone Number | | Organization | | | | + +---------+ + + | [facility] | | | | + +---------+ + + documented in this encounter Visit Diagnoses Not on filedocumented in this encounter"
--- OUTSIDE RECORDS SUMMARY | ~2019-08-24 | XMS | Encounter Summary ---
Demographics + + + | Address | [address] | | | [place] [address] | + + + | Home Phone [...] | Author | [facility] | | | and [place] | + + + | Organization | [facility] | | | and [place] | + + + | Address | Unknown | + + + | Phone | Unavailable | + + + Support + + + + + | Name | Relationship | Address | Phone | + + + + + | India Tilley | ECON | [address] | | | | | [place], [place] | | | | | [address] | | + + + + + | Yina La | ECON | Unknown | | + + + + + | Yina Peterson | ECON | Unknown | | + + + + + | Leatha Casillas | ECON | Unknown | | + + + + + Care Team Providers + +------+ + | Care Iron Worker Apprentice Name | Role | Phone | + [...] + | 03/11/ | Telephone | [facility] | Santos Stephenson | Vascular Access | | 2018 | | SURGERY [address] | MD Kinga, FACS [address] | Problem | | | | [place], [place] | [facility] | | | | | [address] | [place] [address] | | | | | [phone] | [phone] | | | | | | | [...]
--- OUTSIDE RECORDS SUMMARY | ~2019-08-24 | XMS | Encounter Summary ---
Demographics + + + | Address | [address] | | | [place] [address] | + + + | Home Phone [...] Author | [facility] | | | and [place] | + + + | Organization | [facility] | | | and [place] | + + + | Address | Unknown | + + + | Phone | Unavailable | + + + Support + + + + + | Name | Relationship | Address | Phone | + + + + + | India Tilley | ECON | [address] | | | | | [place], [place] | | | | | [address] | | + + + + + | Yina La | ECON | Unknown | | + + + + + | Yina Peterson | ECON | Unknown | | + + + + + | Leatha Casillas | ECON | Unknown | | + + + + + Care Team Providers + +------+ + | Care Airdrop Systems Technician Name | Role | Phone | + +------+ + PCP | Unavailable | + +------+ + Encounter Details +--------+ + + + + | Date | Type | Department | Care Team | Description | +--------+ + + + + | 11/08/ | Imaging | [facility] | Provider, | | | 2018 | Exam | MED CTR EXTERNAL | [address] | | | | | IMAGING | [address] | | | | | [phone] | [place] [address] | | +--------+ + + + + [...] for comparison only - no result from [place]. | [facility] | + + + + +---------+ + + | Performing | Address | City/State/Zipcode | Phone Number | | Organization | | | | + +---------+ + + | [facility] | | | | + +---------+ + + documented in this encounter Visit Diagnoses Not on filedocumented in this encounter"
--- OUTSIDE RECORDS SUMMARY | ~2019-08-24 | XMS | Encounter Summary ---
Demographics + + + | Address | [address] | | | [place] [address] | + + + | Home Phone [...] | Author | [facility] | | | and [place] | + + + | Organization | [facility] | | | and [place] | + + + | Address | Unknown | + + + | Phone | Unavailable | + + + Support + + + + + | Name | Relationship | Address | Phone | + + + + + | India Tilley | ECON | [address] | | | | | [place], [place] | | | | | [address] | | + + + + + | Yina La | ECON | Unknown | | + + + + + | Yina Peterson | ECON | Unknown | | + + + + + | Leatha Casillas | ECON | Unknown | | + + + + + Care Team Providers + +------+ + | Care Construction Equipment Mechanic Helper Name | Role | Phone | + +------+ + | Renato Pierson CORRECTIVE THERAPY AIDE TEACHER | PCP | | + +------+ + [...] | Infection | Nick Miller | [address]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 | [place], | Joe Diaz, | | | | | 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 [address] | [place] [address] | | | | | al disc | [address] | Phone: | | | | | (pyogenic), | [place], [place] | [phone] | | | | | thoracic | [address] | Fax: | | | | | region (HCC) | Phone: | [phone] | | | | | | [phone] | | | | | | 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: | | | | | | s of | [phone] | | | | | | thoracic | | | | | | | vertebra | | | | | | | ([facility]) | | | | | | [...] + + | 07/13/ | Hospital | [facility] | Fabiana Miller, | Canceled (OTHER) | | 2019 | Encounter | CENTER IR INTRA OP | Nick Apodaca MD | | | | | [address] | [address] | | | | | [place], [place] | [place] [address] | | | | | [address] | [phone] | | | | | [phone] | | | | | | | Wm [place] | | | | | | MD [address] | | | | | | [address] | | | | | | [place] [address] | | | | | | [phone] | | | | | | | [...]
--- OUTSIDE RECORDS SUMMARY | ~2019-08-24 | XMS | Encounter Summary ---
Demographics + + + | Address | [address] | | | [place] [address] | + + + | Home Phone [...] + | Author | [facility] | | | and Kamaljitana | + + + | Organization | [facility] | | | and [place] | + + + | Address | Unknown | + + + | Phone | Unavailable | + + + Support + + + + + | Name | Relationship | Address | Phone | + + + + + | India Tilley | ECON | [address] | | | | | [place], [place] | | | | | [address] | | + + + + + | Yina La | ECON | Unknown | | + + + + + | Yina Peterson | ECON | Unknown | | + + + + + | Leatha Casillas | ECON | Unknown | | + + + + + Care Team Providers + +------+ + | Care Community Life Director Name | Role | Phone | [...] | | | | | site, | [place], [place] | TABITHA, VITKORIYA | | | | | unspecified | [address] | [address] | | | | | type ([facility]) | Phone: | Phone: | | | | | | [phone] | [phone] | | | | | | Fax: | Fax: | | | | | | [phone] | [phone] | + + + + + + [...] + + | 03/24/ | Hospital | [facility] | Erlinda Simon, | Osteomyelitis, | | 2019 - | Encounter | [facility] | MD [address] | unspecified site, | | | | NEPHROLOGY [address], [address] | unspecified type | | 03/31/ | | [address] [place], [place] | [place] [address] | ([facility]) (Primary Dx); | | 2019 | | [address] | [phone] | Discitis of thoracic | | | | [phone] | | region; Other | | | | | Katey Hill MD | secondary | | | | | [address] | osteoarthritis of | | | | | [address] [place], | multiple sites; ESRD | | | | | [place] [address] | (end stage renal | | | | | [phone] | disease) on dialysis | | | | | | ([facility]); Essential | | | | | Michelle Lopez, | hypertension; ESRD | | | | | DO [address] | (end stage renal | | | | | [address] [place], | disease) ([facility]); Type | | | | | [place] [address] | 2 diabetes mellitus | | | | | [phone] | with stage 4 | | | | | | chronic kidney | | | | | | disease, with | | | | | | long-term current | | | | | | use of insulin ([facility]) | +--------+ + + + + Social [...] completion of IV abx Follow Up Appointments: [facility] [address] [facility] [address] [facility] [address] [place] [phone] [facility] [address] [facility] [address] Discharge Disposition: Home with Home Health Consultants This Admission: ID, Nephrology Hospital Course: 73-year-old female with history of ESRD on hemodialysis, hypertension, type 2 diabetes, hyp othyroidism, chronic anemia, hyperlipidemia with a history of stroke transferred from [facility] for evaluation of T11-T12 lesion noted on [...] to go to SNF ([facility] in [place], [place] - of which has accepted her [...] dialysis days after dialysis Osteomyelitis/Discitis of T11, [id number] -MRI spine 03/23/19: "mild paravertebral soft tissue [...] dialysis patient - has OP clinic in [place] already Macrocytic anemia likely secondary to-likely anemia [...] Value Units Date/Time Culture, Aerobic + Anaerobic [[id number]] Collected: 03/24/191513 Order Status: Completed Lab Status: Final result Updated: 03/29/19717 Specimen: Body Fluid from Vertebrae, Thoracic FINAL REPORT -- No Growth No anaerobes isolated Gram Stain Few Neutrophils No squamous epithelial cells seen No organisms seen Comment: Performed by [facility] [address] [place] [address] Gram Stain [[id number]] Collected: 03/24/191513 Order Status: Canceled Lab Status: No result Updated: 03/24/19 1515 Specimen: Body Fluid from Vertebrae, Thoracic Culture, AFB Smear [[id number]] Collected: 03/24/19 1514 Order Status: Completed Lab Status: Preliminary result Updated: 03/25/19 1054 Specimen: Body Fluid from Vertebrae, Thoracic AFB Smear Result No Acid Fast Bacilli Seen Comment: Performed by [facility] [address] [place] [address] [address] Culture, Fungus, Smear [[id number]] Collected: 03/24/19 1514 Order Status: Completed Lab Status: Preliminary result Updated: 03/25/19 1039 Specimen: Body Fluid from Vertebrae, Thoracic CALCOFLUOR No fungal elements seen Comment: Performed by [facility] [address] [place] [address] [address] Culture, Blood [[id number]] Collected: 03/23/19 2333 Order Status: Completed Lab Status: Final result Updated: 03/28/19 2352 Specimen: Blood Culture No growth after 5 days incubation. Culture, Blood [[id number]] Collected: 03/23/19 2255 Order Status: Completed Lab [...] this chart may have been created with Petflow voice recognition software. Occasi onal wrong-word or [...] | | | | | | ([facility]), Right hip | | | | | [...] 03/31/2019 5:42 PM PDTPatient left with family, [facility] supplies and i nstructions received before discharge and RX's filled at outpt pharmacy. VSS, ambulating wit h SBA, A&O x4, accepting of discharge. Dialysis completed this AM. Pain controlled with q4 o xy, LD 1400. Home health will f/u tomorrow. AVS reviewed and sent with patient, verbalized u nderstanding. Merry Hess, FORMAL WAITER/WAITRESS - 03/31/2019 11:05 AM PDTSOCIAL WORK PLAN: Home with [facility] NEXT STEPS: 1. Pt to follow up with [facility] 2. [facility] [place] INTERVENTION: SW spoke with [facility], pt has a $2.50 out of pocket cost weekly, pt is agreeable to pay for this. Therefore pt will dc today with [facility]. ROBIN provided [facility] with hard script for IV abx. ROBIN faxed over HH order to [facility], ROBIN faxed over IV vanco script to [facility]. [facility] notified of pt's dc home. notified. Candie to meet with pt later this afternoon for teach. SW provided pt with 3 gas cards to assist with transportation. No further dc needs identified. SW received call from [facility] clinic that they cannot provide IV Vanco as Vanco h as not been consigned by Neurourologist that [place] privileges in [place]. IV Vanco will now be done b y Candie, [employer] Consultant faxed over hard script to Candie. They will have both IV Abx ready and will teach pt shortly. No further dc needs identified. CONTACTS: Yina La: sister India Tilley: sister [place] Transportation: [place] Medicaid Transportation fax: [phone] [facility]: [phone] fax: [phone] [facility] [phone] [facility]: [phone] [facility]: [phone] [facility] FAX: [phone] aMichelle bell DO - 03/31/2019 10:12 AM PDT Patient: Estefani Tilley Date of : 1945 Admit Date: 03/24/2019 Date of Service: 03/31/2019 PCP: Francisca Womack PA-C Hospital Day: Hospital Day: 8 Hospital Course: 73-year-old female with history of ESRD on hemodialysis, hypertension, type 2 diabetes, hyp othyroidism, chronic anemia, hyperlipidemia with a history of stroke transferred from [facility] for evaluation of T11-T12 lesion noted on [...] had planned to go to SNF [facility] [place] - of which has accepted her [...] dialysis patient - has OP clinic in [place] already Macrocytic anemia likely secondary to-likely anemia [...] hoping to arrange home IV antibiotics through [facility]. Awaiting to see if insurance will cover [...] - 99 mg/dL Final Comment: Performed by [facility] [address] [place] [address] 03/30/2019 21:14 200 (H) 65 - 99 mg/dL Final Comment: Performed by [facility] [address] [place] [address] 03/30/2019 17:46 111 (H) 65 - 99 mg/dL Final Comment: Performed by [facility] [address] [place] [address] 12/09/2018 18:05 113 (H) 70 - 109 [...] this chart may have been created with Petflow voice recognition software. Occasi onal wrong-word or sound-alike substitutions may have occurred due to the inherent mckeon itations of voice recognition software. Please read the chart carefully and recognize, using context, where these substitutions have occurred Jesus Wade MD - 03/31/2019 8:26 AM PDT . Infectious Diseases Progress Note Pt. Name/Age/: Estefani Tony Tilley 73 y.o. 1945 Med. Record Number: [id number] Date of admission: 03/24/2019 Patient admitted with [...] Electronically signed by: Jesus Whitney, 03/31/2019 8:26 [facility] Robb Phillips PharmD - 03/31/2019 7:25 AM [...] - 03/30/2019 9:45 PM PDT [facility] INPATIENT ROUNDING NOTE Date of Service: 03/30/2019 Rounding Physician: Randy Corrigan MD Patient Name: Estefani Tilley : 1945 Medical Record: [id number] Hospital Summary: Estefani Tilley is a 73 y.o. female with a PMHx of ESRD, HTN, Dm type 2, hypothyroidism, HLd, CVA who is under the care of Dr Muñoz at [facility] who dialyzes MWF admitted with possible osteo [...] by: Trace Corrigan MD, 03/30/2019, 21:45 etNan iwlkes, FORMAL WAITER/WAITRESS - 03/30/2019 2:34 PM PDT SOCIAL WORK D/C PLAN:DC home with [facility] providing IV-ABX and [facility] providing picc care and lab draws vs [facility] NEXT STEPS: -SW will need to follow up with CANDIE regarding providing IV-ABX to pt. -SW will need to follow up with [facility] regarding providing picc care and lab draws. -SW will need to follow up with [facility] regarding having pt receive vanco do se while at dialysis center if pt is to go home with IV-ABX -SW will need to follow up with [facility] if pt is unable to go home with IV-ABX rega ridng pt's DC -SW will need to fax SNF orders, scripts and PASRR to [facility] if pt is unable to go home -SW will need to provide gas cards to pt's family for transportation home. INTERVENTION:SW spoke with pt regarding acceptance to [facility]. Pt is now wanting to go home with IV-ABX. SW spoke with [facility]. They go out to [place], [place] and have openings for nursing care. Referral faxed to [facility]. Pt is amenable to using [facility] for IV-ABX. SW spoke with CANDIE martinez who will run pt's be nefits to see if she can DC home with IV-ABX. Pt states that [facility] can provide teach to her son to help administer IV-ABX. SW left message for [facility] to see if they can provide vanco dose to pt at [facility] on Wednesday, Wednesday and Wednesday if pt is able to go home. Pt states that she does dialysis on Wednesday, Wednesday and Wednesday from 12:00-4:00. SW received phone call from [facility]. They have accepted pt for admission if [...] pt is going to go to [facility]. ASSESSMENT/CHART REVIEW:73 yr old femalewith a history of ESRD on hemodialysis, hypertens ion, type 2 diabetes, hypothyroidism,chronic anemia,hyperlipidemia, hx of stroke [facility] noted on MRI concerning fo r osteomyelitis. SW met with pt's sister, Yina, and her cousin, Keri, who were waiting in pt's room while s he was in dialysis. SW will need to follow up with pt re: d/c planning. Pt's sister and cousin related that pt mostly lives at Yina's house outside [place], [place], but does not like to be tied down because she enjoys attending [place] festivals and many events. She does at [facility] weekly. Pt has a vehicle and is very independent. D/C TRANSPORT:Pt can be transported home or to [facility] via family in a private car. They will need gas cards to help pay for transportation. BARRIERS TO D/C:none CONTACTS: Yina La: sister India Tilley: sister [place] Transportation[place] Transportation fax: [phone] [facility]: [phone] fax: [phone] [facility] [phone] [facility]: [phone] [facility]: [phone] [facility] FAX: [phone] Nan Cheney MSW - 03/30/2019 12:57 PM PDTSOCIAL WORK D/C PLAN:[facility]: [facility] NEXT STEPS:Await bed availability INTERVENTION: ROBIN called and left message for Mell at [facility] regarding if they are willing to accept pt and to discuss transportation to and from dialysis. SW also called and left message for [place] Medicaid transportation regarding if they can transp ort pt to and from dialysis upon DC. Pt states that she goes to [facility] dialys is in [place], [place] on Wed, Wed, and Fridays from 12:00-4:00 pm. SW left message with [facility] dialysis regarding if there was any way that they may also be able to help with transportation to and from dialysis while pt is in rehab and to ensure that pt still has her chair time scheduled. [facility] is only open M on, Wednesday and Wednesday. ASSESSMENT/CHART REVIEW:73 yr old femalewith a history of ESRD on hemodialysis, hypertens ion, type 2 diabetes, hypothyroidism,chronic anemia,hyperlipidemia, hx of stroke transfe rred from [facility] evaluation of T11-T12 lesion noted on MRI concerning fo r osteomyelitis. SW met with pt's sister, Yina, and her cousin, Keri, who were waiting in pt's room while s he was in dialysis. SW will need to follow up with pt re: d/c planning. Pt's sister and cousin related that pt mostly lives at Yina's house outside [place], [place], but does not like to be tied down because she enjoys attending [place] festivals and many events. [facility]. Pt has a vehicle and is very independent. D/C TRANSPORT:tbd BARRIERS TO D/C:none CONTACTS: Yina La: sister India Tilley: sister [place] Transportation[place] Transportation fax: [phone] [facility]: [phone] fax: [phone] [facility] [phone] [facility]: [phone] signed by JENNIFER Xavier at 03/30 1:09 [...] with a history of stroke transferred from [facility] for evaluation of T11-T12 lesion noted on [...] dialysis patient - has OP clinic in [place] already ---> will need SW to help [...] SNF - awaiting to hear back from [facility], in [place], [place] regarding possible acceptance there. Medically ready [...] Single Lumen 03/24/19 2143 Left Lateral Forearm zvja-cgg-cdjbeb daniel ter system 20 gauge;1 1/4 in [...] - 99 mg/dL Final Comment: Performed by [facility] [address] [place] [address] 03/29/2019 21:09 157 (H) 65 - 99 mg/dL Final Comment: Performed by [facility] [address] [place] [address] 03/29/2019 18:50 91 65 - 99 mg/dL Final Comment: Performed by [facility] [address] [place] [address] 12/09/2018 18:05 113 (H) 70 - 109 [...] this chart may have been created with Petflow voice recognition software. Occasi onal wrong-word or sound-alike substitutions may have occurred due to the inherent mckeon itations of voice recognition software. Please read the chart carefully and recognize, using context, where these substitutions have occurred esus Whitney MD - 03/30/2019 7:15 AM PDT . Infectious Diseases Progress Note Pt. Name/Age/: Estefani Jimenez Jarek 73 y.o. 1945 Med. Record Number: [id number] Date of admission: 03/24/2019 Patient admitted with [...] Electronically signed by: Jesus Whitney, 03/30/2019 7:15 [facility] Mary Wade RN - 03/30/2019 6:16 AM [...] has depression wishful of Monitoring Requirements [facility] Suicide Policy [facility] Suicide Risk/Telesitter Screening Utilizing this rating [...] 03/29/2019 4:18 PM PDTSOCIAL WORK D/C PLAN:SNF: [facility] NEXT STEPS:Await bed availability INTERVENTION: SW called and spoke with admissions person at [facility], they are still discussing pt's case. They [...] anemia,hyperlipidemia, hx of stroke [facility] lesion noted on MRI concerning fo r osteomyelitis. SW met with pt's sister, Yina, and her cousin, Keri, who were waiting in pt's room while s he was in dialysis. SW will need to follow up with pt re: d/c planning. Pt's sister and cousin related that pt mostly lives at Yina's house outside [place], [place], but does not like to be tied down because she enjoys attending [place] festivals and many events. She does at [facility] weekly. Pt has a vehicle and is very independent. D/C TRANSPORT:tbd BARRIERS TO D/C:none CONTACTS: Yina La: sister India Tilley: sister [place] Medicaid Transportation: [facility]: [phone] fax: [phone] [facility] [phone] signed by JENNIFER Contreras at 03/29/2019 4:20 PM PDTHsu, Randy Nunez MD - 03/29/2019 12:32 PM PDT [facility] INPATIENT ROUNDING NOTE Date of Service: 03/29/2019 Rounding Physician: Randy Corrigan MD Patient Name: Estefani Tilley : 1945 Medical Record: [id number] Hospital Summary: Estefani Tilley is a 73 y.o. female with a PMHx of ESRD, HTN, Dm type 2, hypothyroidism, HLd, CVA who is under the care of Dr Muñoz at [facility] who dialyzes MWF admitted with possible osteo [...] with a history of stroke transferred from [facility] for evaluation of T11-T12 lesion noted on [...] need three times weekly dialysis while at [facility] as well. SW to help determine transportation [...] dialysis patient - has OP clinic in [place] already ---> will need SW to help [...] SNF - awaiting to hear back from [facility], in [place], [place] regarding possible acceptance there. Could possibly [...] Single Lumen 03/24/19 2143 Left Lateral Forearm cskr-kik-iilnqe daniel ter system 20 gauge;1 /4 in [...] - 99 mg/dL Final Comment: Performed by [facility] [address] [place] [address] 03/28/2019 21:06 144 (H) 65 - 99 mg/dL Final Comment: Performed by [facility] [address] [place] [address] 03/28/2019 11:22 119 (H) 65 - 99 mg/dL Final Comment: Performed by [facility] [address] [place] [place] [address] 12/09/2018 18:05 113 (H) 70 - 109 [...] this chart may have been created with Petflow voice recognition software. Occasi onal wrong-word or [...] Jarek 73 y.o. 1945 Med. Record Number: [id number] Date of admission: 03/24/2019 Patient admitted with [...] Electronically signed by: Jesus Whitney, 03/29/2019 7:35 [facility] zech, Carolina Restrepo RN - 03/28/2019 7:08 PM [id number] - Report called to Sanjuanita GONZALEZ. Pt's belongings . I pad and I phone w/ chargers as well as pt's purse, and shoes, and shirt and pants all sent with her to [address] [place] [address]. Pt had been sitting up eating dinner. [...] for time spent with her. Noti fied [address] [place] [address] RN of pt's recent loss. Transferred at [...] with a history of stroke transferred from [facility] for evaluation of T11-T12 lesion noted on [...] Single Lumen 03/24/19 2143 Left Lateral Forearm czzk-drb-zusecb daniel ter system 20 gauge;1 / in [...] - 99 mg/dL Final Comment: Performed by [facility] [address] [place] [address] 03/28/2019 07:09 75 65 - 99 mg/dL Final Comment: Performed by [facility] [address] [place] [address] 03/27/2019 20:38 109 (H) 65 - 99 mg/dL Final Comment: Performed by [facility] [address] [place] [place] [address] 12/09/2018 18:05 113 (H) 70 - 109 [...] this chart may have been created with Petflow voice recognition software. Occasi onal wrong-word or sound-alike substitutions may have occurred due to the inherent mckeon itations of voice recognition software. Please read the chart carefully and recognize, using context, where these substitutions have occurred Cordell Mcgarry LICSW - 03/28/2019 2:57 PM PDTSOCIAL WORK D/C PLAN: SNF: [facility] NEXT STEPS: Await bed availability INTERVENTION: On-going dc planning. Rec'd update from [facility]. They confirm they have r ec'd clinical notes and are currently reviewing. SW will follow. ASSESSMENT/CHART REVIEW:73 yr old femalewith a history of ESRD on hemodialysis, hypertens ion, type 2 diabetes, hypothyroidism,chronic anemia,hyperlipidemia, hx of stroke [facility] lesion noted on MRI concerning fo r osteomyelitis. SW met with pt's sister, Yina, and her cousin, Keri, who were waiting in pt's room while s he was in dialysis. SW will need to follow up with pt re: d/c planning. Pt's sister and co in related that pt mostly lives at Yina's house outside [place], [place], but does not like to be tied down because she enjoys attending [place] festivals and many events. She does atten d dialysis weekly. Pt has a vehicle and is very independent. D/C TRANSPORT: tbd BARRIERS TO D/C: none CONTACTS: Yina La: sister India Tilley: sister [facility]: [phone] fax: [phone] [facility] [phone] Mario Alberto Gonzales MD - 03/28/2019 7:34 AM PDTFormatting of this note might be different from the maynor rollins Infectious Diseases Progress Note Pt. Name/Age/: Estefani Tilley 73 y.o. 1945 Med. Record Number: [id number] Date of admission: 03/24/2019 Patient admitted with [...] Electronically signed by: Carlos Jansen, 03/28/2019 7:34 [facility] Katey Solis MD - 03/27/2019 8:58 PM PDT Patient: Estefani Tilley Date of : 1945 Admit Date: 03/24/2019 Date of Service: 03/27/2019 PCP: Francisca Womack PA-C Hospital Day: Hospital Day: 4 Hospital Course: 73-year-old female with history of ESRD on hemodialysis, hypertension, type 2 diabetes, hyp othyroidism, chronic anemia, hyperlipidemia with a history of stroke transferred from [facility] for evaluation of T11-T12 lesion noted on MRI concerning for osteomyeliti s. Infectious disease consulted. Status post aspiration from her thoracic spine, Gram stain negative, cultures pending. Rosemary ent started on empiric vancomycin and cefepime. Will need 6 weeks of IV antibiotics. Discussed with nephrology, recommend placement of Tillman catheter instead of PICC line for human resources consultant IV antibiotics. Nephrology following for maintenance hemodialysis. [...] Tillman catheter instead of PICC line for prison IV antibiotics. Pain management -trial of lidocaine [...] Single Lumen 03/24/19 2143 Left Lateral Forearm xhuc-cby-abbvkf daniel ter system 20 gauge;1 1/4 in [...] - 99 mg/dL Final Comment: Performed by [facility] [address] [place] [address] 03/27/2019 13:58 82 65 - 99 mg/dL Final Comment: Performed by [facility] [address] [place] [address] 03/27/2019 06:39 83 65 - 99 mg/dL Final Comment: Performed by [facility] [address] [place] [address] 12/09/2018 18:05 113 (H) 70 - 109 [...] this chart may have been created with Petflow voice recognition software. Occasi onal wrong-word or sound-alike substitutions may have occurred due to the inherent mckeon itations of voice recognition software. Please read the chart carefully and recognize, using context, where these substitutions have occurred Darlin Mcgarry LICSW - 03/27/2019 3:17 PM PDTSOCIAL WORK D/C PLAN: SNF: [facility] NEXT STEPS: Await bed availability INTERVENTION: Rec'd call from Emili at [facility]. She states the contracted f acility near pt's home is [facility]. Spoke with pt and with sister India. Referral and (-) Pasrr sent to [facility]. Copy of Pasrr placed in light chart with request to file into jos rds. SW will follow. ASSESSMENT/CHART REVIEW:73 yr old femalewith a history of ESRD on hemodialysis, hypertens ion, type 2 diabetes, hypothyroidism,chronic anemia,hyperlipidemia, hx of stroke [facility] noted on MRI concerning fo r osteomyelitis. SW met with pt's sister, Yina, and her cousin, Keri, who were waiting in pt's room while s he was in dialysis. SW will need to follow up with pt re: d/c planning. Pt's sister and co usin related that pt mostly lives at Yina's house outside [place], [place], but does not like to be tied down because she enjoys attending [place] festivals and many events. She does atten d dialysis weekly. Pt has a vehicle and is very independent. D/C TRANSPORT: tbd BARRIERS TO D/C: none CONTACTS: Yina La: sister India Tilley: sister [facility]: [phone] fax: [phone] [place] [phone] Gregg Mcgarry [facility] - 03/27/2019 2:17 PM PDTFormatting of this note might be different from jerald posadas original. SOCIAL WORK D/C PLAN: SNF NEXT STEPS: SW to follow up with pt regarding SNF preference INTERVENTION: On-going dc planning, chart reviewed and met with pt. Discussed need of human resources consultant IV abx, Discussed options. Provided list of [...] pt mostly lives at Yina's house outside [place], [place], but does not like to be tied down because she enjoys attending [place] festivals and many events. She does atten d dialysis weekly. Pt has a vehicle and is very independent. ASSESSMENT/CHART REVIEW:73 yr old femalewith a history of ESRD on hemodialysis, hypertens ion, type 2 diabetes, hypothyroidism,chronic anemia,hyperlipidemia, hx of stroke [facility] lesion noted on MRI concerning fo r osteomyelitis. D/C TRANSPORT: tbd BARRIERS TO D/C: none CONTACTS: Yina La Sister [phone] India Tilley Sister [phone] Irish Cadet, Chipper Operator - 03/27/2019 1:33 PM PDTFormatting of [...] mg/dL (H)). Lab Results Component Value Date/Time [facility] 17.7 03/27/2019 05:12 I/O last 3 completed shifts: In: 360 [P.O.:360] Out: 1 [Urine:1] I/O this shift: In: - Out: 2000 Micro/Cultures: BCx - NGTD, BiopsyCx - NGTD Per P&T-approved Vancomycin Protocol Electronically signed by: Aimee Carroll, Chipper Operator 03/27/2019 13:33Electronically si gned by Ray Joel, PharmD at 03/27/2019 2:04 PM PDT Associated attestation - Ray Joel, PharmD - 03/27/2019 2:04 PM PDTI reviewed and agr ee with the assessment and plan. Ray Joel, PharmD 03/27/2019 14:04 Randy Corrigan MD - 03/27/2019 10:52 AM PDT [facility] INPATIENT ROUNDING NOTE Date of Service: 03/27/2019 Rounding Physician: Randy Corrigan MD Patient Name: Estefani Tilley : 1945 Medical Record: [id number] Hospital Summary: Estefani Tilley is a 73 y.o. female with a PMHx of ESRD, HTN, Dm type 2, hypothyroidism, HLd, CVA who is under the care of Dr Muñoz at [facility] who dialyzes MWF admitted with possible osteo [...] Tilley 73 y.o. 1945 Med. Record Number: [id number] Date of admission: 03/24/2019 Patient admitted with [...] Electronically signed by: Carlos Jansen, 03/27/2019 7:10 [facility] Katey Solis MD - 03/26/2019 5:40 PM PDT Patient: Estefani Tilley Date of : 1945 Admit Date: 03/24/2019 Date of Service: 03/26/2019 PCP: Francisca Womack PA-C Hospital Day: Hospital Day: 3 Hospital Course: 73-year-old female with history of ESRD on hemodialysis, hypertension, type 2 diabetes, hyp othyroidism, chronic anemia, hyperlipidemia with a history of stroke transferred from [facility] [place] for evaluation of T11-T12 lesion noted on [...] Single Lumen 03/24/19 2143 Left Lateral Forearm sbcm-jfj-ozgrpr daniel ter system 20 gauge;1 1/4 in [...] - 99 mg/dL Final Comment: Performed by [facility] [address] [place] [address] 03/26/2019 06:49 116 (H) 65 - 99 mg/dL Final Comment: Performed by [facility] [address] [place] [address] 03/25/2019 20:37 110 (H) 65 - 99 mg/dL Final Comment: Performed by [facility] [address] [place] [address] 12/09/2018 18:05 113 (H) 70 - 109 [...] this chart may have been created with Petflow voice recognition software. Occasi onal wrong-word or [...] Vancomycin Protocol Electronically signed by: Jose Menard, Chipper Operator 03/26/2019 10:52 Hsu, Randy Nunez MD - 03/26/2019 1 0:38 AM PDT [facility] INPATIENT ROUNDING NOTE Date of Service: 03/26/2019 Rounding Physician: Randy Corrigan MD Patient Name: Estefani Tilley : 1945 Medical Record: [id number] Hospital Summary: Estefani Tilley is a 73 y.o. female with a PMHx of ESRD, HTN, Dm type 2, hypothyroidism, HLd, CVA who is under the care of Dr Muñoz at [facility] who dialyzes MWF admitted with possible osteo disccitis t11/t12 ASSESSMENT AND PLAN 1. ESRD/HD dependent Access is LUE AVF working well No indications for HD today Usually dialyzes MWF at [facility] Hd tommorow 2. Anemia Hg at goal [...] taking over care. 9:5 6 AM Carlos Gonzalse MD - 03/26/2019 8:03 AM PDTFormatting of this note might be differ ent from the original. Infectious Diseases Progress Note Pt. Name/Age/: Estefani Tilley 73 y.o. 1945 Med. Record Number: [id number] Date of admission: 03/24/2019 Patient admitted with [...] Electronically signed by: Carlos Jansen, 03/26/2019 8:03 [facility] Katey Solis MD - 03/25/2019 3:50 PM PDT Patient: Estefani Tilley Date of : 1945 Admit Date: 03/24/2019 Date of Service: 03/25/2019 PCP: Francisca Womack PA-C Hospital Day: Hospital Day: 2 Hospital Course: 73-year-old female with history of ESRD on hemodialysis, hypertension, type 2 diabetes, hyp othyroidism, chronic anemia, hyperlipidemia with a history of stroke transferred from [facility] [place] for evaluation of T11-T12 lesion noted on [...] Peripheral IV Line - Single Lumen 03/24/19 7707 Left Lateral Forearm swlq-uvm-rqwcns daniel ter system 20 gauge;1 1/4 in [...] - 99 mg/dL Final Comment: Performed by [facility] [address] [place] [address] 03/25/2019 06:52 107 (H) 65 - 99 mg/dL Final Comment: Performed by [facility] [address] [place] [address] 03/24/2019 20:11 112 (H) 65 - 99 mg/dL Final Comment: Performed by [facility] [address] [place] [place] [address] 12/09/2018 18:05 113 (H) 70 - 109 [...] this chart may have been created with Petflow voice recognition software. Occasi onal wrong-word or sound-alike substitutions may have occurred due to the inherent mckeon itations of voice recognition software. Please read the chart carefully and recognize, using context, where these substitutions have occurred su, Randy Nunez MD - 0 03/25/2019 1:47 PM PDT [facility] INPATIENT ROUNDING NOTE Date of Service: 03/25/2019 Rounding Physician: Randy Corrigan MD Patient Name: Estefani Tilley : 1945 Medical Record: [id number] Hospital Summary: Estefani Tilley is a 73 y.o. female with a PMHx of ESRD, HTN, Dm type 2, hypothyroidism, HLd, CVA who is under the care of Dr Muñoz at [facility] who dialyzes MWF admitted with possible osteo disccitis t11/t12 ASSESSMENT AND PLAN 1. ESRD/HD dependent Access is LUE AVF working well No indications for HD today Usually dialyzes MWF at [facility] She is below her EDW an EDW [...] Trace Corrigan MD, 03/25/2019, 13:47 etNan wilkes FORMAL WAITER/WAITRESS - 03/25/2019 10:49 AM PDT SOCIAL WORK [...] pt mostly lives at Yina's house outside [place], [place], but does not like to be tied down because she enjoys attending [place] festivals and many events. She does atten d dialysis weekly. Pt has a vehicle and is very independent. ASSESSMENT/CHART REVIEW:73 yr old femalewith a history of ESRD on hemodialysis, hypertens ion, type 2 diabetes, hypothyroidism,chronic anemia,hyperlipidemia, hx of stroke [facility] lesion noted on MRI concerning fo r osteomyelitis. D/C TRANSPORT: tbd BARRIERS TO D/C: none CONTACTS: Yina La Sister [phone] India Tilley Sister [phone] Carlos Gonzales M D - 03/25/2019 8:34 AM PDT Infectious Diseases Progress Note Pt. Name/Age/: Estefani Tilley 73 y.o. 1945 Med. Record Number: [id number] Date of admission: 03/24/2019 Patient admitted with [...] Electronically signed by: Carlos Jansen, 03/25/2019 8:34 [facility] Jose Gamez, Chipper Operator - 03/24/2019 10:46 PM PDTFormatting of this note might be different from the origin pr. Pharmacy Progress Note VANCOMYCIN PER PHARMACY PROTOCOL: [...] Vancomycin Protocol Electronically signed by: Jose Menard, Chipper Operator 03/24/2019 22:46 ladys [place] MSW - [...] pt mostly lives at Yina's house outside [place], [place], but do es not like to be tied down because she enjoys attending [place] festivals and many events. She does attend dialysis weekly. Pt has a vehicle and is very independent. ASSESSMENT/CHART REVIEW:73 yr old female with a history of ESRD on hemodialysis, hypertensi on, type 2 diabetes, hypothyroidism, chronic anemia, hyperlipidemia, hx of stroke transferre d from [facility] for evaluation of T11-T12 lesion noted on MRI concerning for ost eomyelitis. D/C TRANSPORT: tbd BARRIERS TO D/C: none CONTACTS: Yina La Sister [phone] India Tilley Sister [phone] atey Hill MD - 03/24/2019 3:53 PM PDTPatient seen and examined. Chart reviewed. Briefly, 73-year-old female with history of ESRD on hemodialysis, hypertension, type 2 diab etes, hypothyroidism, chronic anemia, hyperlipidemia with a history of stroke transferred fr [facility] [place] for evaluation of T11-T12 lesion noted on [...] not have any p raza, consider antidepressants. 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 2. Target Trough: 15-20 mcg/ml [...] Procedure Component Value Units Date/Time Culture, Blood [[id number]] Collected: 03/23/192332 Order Status: Sent Lab Status: In process Updated: 03/23/192348 Specimen: Blood Culture, Blood [[id number]] Collected: 03/23/192254 Order Status: Sent Lab Status: [...] PROVIDEJOSE AE | | | POC | [facility] [address], | | SACRED | | | | [place] [address] | | HEART | | | |Performed by [facility] [address], [place], [place] | | MEDICAL | | | [...] SACRED | [address] | [place] | | | [facility] [...] | PROVIDENCE | | | POC | [facility] [address], | | SACRED | | | | [place] [address] | | HEART | | | |Performed by [facility] [address], [place] [address] | | MEDICAL | | | | [...] + + | [facility] | [address] | [place] [address] | | | [facility] | | | | | YANY [...] | | LABORATORY | | | | [facility] [address], | | [place] | | | | [place] [address] | | | | + + + + + + + + | Specimen | + + | Blood specimen | | (specimen) | + + + + + + + | Performing | Address | City/State/Zipcode | Phone Number | | Organization | | | | + + + + + | [facility] | [address] | [place] [address] | | | [facility] | | | | | LABORATORY [...] ENCE | | | Immature | by [facility] [address], | K/uL | SACRED | | | Granulocyte | [place] [address] | | HEART | | | s |Performed by [facility] [address], [place] [address] | | MEDICA L | | | [...] + + | [facility] | [address] | [place] [address] | | | [facility] | | | | | LABORATORY [...] by | | | | | | [facility] [address], | | | | | | [place] [address] | | | | + + + + + + + + | Specimen | + + | Blood specimen | | (specimen) | + + + + + + + | Performing | Address | City/State/Zipcode | Phone Number | | Organization | | | | + + + + + | [facility] | [address] | [place] [address] | | | [facility] | | | | | LABORATORY [...] | | | POC | Performed by [facility] [address] | | SACRED | | | | [address] [place] | | HEART | | | | [address] | | MEDICAL | | | | [...] + | [facility] AE [facility] | [address] | [place] [address] | | | [facility] | | | | | LABORATORY [...] | | | POC | Performed by [facility] [address] | | SACRED | | | | [address], [place] | | HEART | | | | [address] | | MEDICAL | | | | [...] + + | [facility] | [address] | [place] [address] | | | [facility] | | | | | LABORATORY [...] | | | POC | Performed by [facility] [address] | | SACRED | | | | [address] [place] | | HEART | | | | [address] | | MEDICAL | | | | [...] + + | R[facility] | [address] | [place] [address] | | | [facility] | | | | | LABORATORY [...] | | | POC | Performed by [facility] [address] | | SACRED | | | | [address], [place] | | HEART | | | | [address] | | MEDICAL | | | | [...] + | [facility] | [address] | [place] [address] | | | [facility] | | | | | LABORATORY [...] PROVIDE NCE | | | | by [facility] [address], | | SACRED | | | | [place] [address] | | HEART | | | |Performed by [facility] [address], [place] [address] | | MEDICAL | | | | [...] + + | [facility] | [address] | [place] [address] | | | [facility] | | | | | LABORATORY [...] LUIS CE | | | | by [facility] [address], | | SACRED | | | | [place] [address] | | HEART | | | |Performed by [facility] [address], [place] [address] | | MEDICAL | | | | [...] + | [facility] | [address] | [place] [address] | | | [facility] | [...] | | LABORATORY | | | | [facility] [address], | | [place] | | | | [place] [address] | | | | + + + + + + + + | Specimen | + + | Blood specimen | | (specimen) | + + + + + + + | Performing | Address | City/State/Zipcode | Phone Number | | Organization | | | | + + + + + | [facility] | [address] | [place] [address] | | | [facility] | | | | | LABORATORY [...] ENCE | | | Counted | by [place] [address], | | SACRED | | | | [place] [address] | | HEART | | | |Performed by [facility] [address], [place] [address] | | MEDICA L | | | [...] [address] | [place] [address] | | | [facility] | | | | | LABORATORY [...] | | | POC | Performed by [facility] [address] | | SACRED | | | | [address], [place] | | HEART | | | | [address] | | MEDICAL | | | | [...] + + + + + | [facility] | [address] | [place] [address] | | | [facility] | | | | | LABORATORY [...] | PROVIDENCE | | | POC | [facility] [address], | | SACRED | | | | [place] [address] | | HEART | | | |Performed by [facility] [address], [place] [address] | | MEDICAL | | | | [...] + + | [facility] | [address] | [place] [address] | | | [facility] | | | | | LABORATORY [...] | | | POC | Performed by [facility] [address] | | SACRED | | | | [address] [place] | | HEART | | | | [address] | | MEDICAL | | | | [...] + + | [facility] | [address] | [place] | | | [facility] [...] | PROVIDENCE | | | POC | [facility] [address], | | SACRED | | | | [place] | | HEART | | | |Performed by [facility] [address], [place] | | MEDICAL | | | [...] + + | [facility] | [address] | [place] [address] | | | [facility] | | | | | LABORATORY [...] by | | | | | | [facility] [address], | | | | | | [place] [address] | | | | + + + + + + + + | Specimen | + + | Blood specimen | | (specimen) | + + + + + + + | Performing | Address | City/State/Zipcode | Phone Number | | Organization | | | | + + + + + | [facility] | [address] | [place] [address] | | | [facility] | | | | | LABORATORY [...] ENCE | | | Counted | by [place] [address], | | SACRED | | | | [place] [address] | | HEART | | | |Performed by [facility] [address], [place] [address] | | MEDICA L | | | [...] + | JIMJOSE ADora [facility]Z | [address] | [place] [address] | | | [facility] | | | | | LABORATORY [...] PROVIDEN CE | | | | by [facility] [address], | | SACRED | | | | [place] | | HEART | | | |Performed by [facility] [address], [place], [place] | | MEDICAL | | | [...] + | PROVIDE[facility]SE AE SACRED | [address] | [place], [place] | | | [facility] [...] | | LABORATORY | | | | [facility] [address], | | [place] | | | | [place] [address] | | | | + + + + + + + + | Specimen | + + | Blood specimen | | (specimen) | + + + + + + + | Performing | Address | City/State/Zipcode | Phone Number | | Organization | | | | + + + + + | [facility] | [address] | [place] [address] | | | [facility] | | | | | YANY [...] | | | POC | Performed by [facility] [address] | | SACREVANS | | | | [address], [place] | | HEART | | | | [address] | | MEDICAL | | | | [...] + | [facility] AE [facility] | [address] | [place] [address] | | | [facility] | [...] + + | Performing | Address | City/State/[facility] | Phone Number | | [...] | | | POC | Performed by [facility] [address] | | SACRED | | | | [address] [place] | | HEART | | | | [address] | | MEDICAL | | | | [...] [address]. | [place] | | | [facility] | | | | | LABORATORY [...] | PROVIDENCE | | | POC | [facility] [address], | | SACRED | | | | [place] | | HEART | | | |Performed by [facility] [address], [place] [address] | | MEDICAL | | | | [...] + + | [facility] | [address] | [place] [address] | | | [facility] | [...] | | LABORATORY | | | | [facility] [address] [place], | | [place] | | | | [place] [address] | | | | + + + + + + + + | Specimen | + + | Blood specimen | | (specimen) | + + + + + + + | Performing | Address | City/State/Zipcode | Phone Number | | Organization | | | | + + + + + | [facility] | [address] | [place] [address] | | | [facility] | [...] PROVIDE NCE | | | | by [facility] [address], | | SACRED | | | | [place] [address] | | HEART | | | |Performed by [facility] [address], [place] [address] | | MEDICAL | | | | [...] [address] | [place] [address] | | | [facility] | | | | | LABORATORY [...] | | | POC | Performed by [facility] [address] | | SACRED | | | | [address], [place] | | HEART | | | | [address] | | MEDICAL | | | | [...] + | JIMJOSE ADora AGUST[facility] | [address] | [place] [address] | | | [facility] | | | | | YANY [...] | | | POC | Performed by [facility] [address] | | SACRED | | | | [address] [place] | | HEART | | | | [address] | | MEDICAL | | | | [...] [address] | [place] [address] | | | [facility] | | | | | LABORATORY [...] AGUSTO | | | | [place] [address] | | HEART | | | |Performed by [facility] [address], [place] [address] | | MEDICAL | | | | [...] + + | [facility] | [address] | [place], [place] | | | [facility] [...] | PROVIDENCE | | | POC | [facility] [address], | | SACRED | | | | [place] [address] | | HEART | | | |Performed by [facility] [address], [place] [address] | | MEDICAL | | | | [...] + | JIMJOSE ADora LIZ | [address] | [place] [address] | | | [facility] | | | | | LABORATORY [...] by | | | | | | [facility] [address], | | | | | | [place] [address] | | | | + + + + + + + + | Specimen | + + | Blood specimen | | (specimen) | + + + + + + + | Performing | Address | City/State/Zipcode | Phone Number | | Organization | | | | + + + + + | [facility] | [address] | [place] [address] | | | [facility] | | | | | LABORATORY [...] | | | POC | Performed by [facility] [address] | | SACRED | | | | [address], [place] | | HEART | | | | [address] | | MEDICAL | | | | [...] + | [facility] | [address] | [place] [address] | | | [facility] | | | | | LABORATORY [...] | | | POC | Performed by [facility] [address] | | SACRED | | | | [address] [place] | | HEART | | | | [address] | | MEDICAL | | | | [...] [address] | [place] [address] | | | [facility] | | | | | LABORATORY [...] | | | POC | Performed by [facility] [address] | | SACRED | | | | [address], [place] | | HEART | | | | [address] | | MEDICAL | | | | [...] + + | [facility] | [address] | [place] [address] | | | [facility] | [...] PROVIDENCE | | | | Performed by [facility] [address] | | SACRED | | | | [address] [place] | | HEART | | | | [address] | | MEDICAL | | | | [...] | [address] | [place] [address] | | | [facility] | | | | | LABORATORY [...] | | | POC | Performed by [facility] [address] | | SACRED | | | | [address], [place] | | HEART | | | | [address] | | MEDICAL | | | | [...] + + | [facility] | [address] | [place] [address] | | | [facility] | | | | | LABORATORY [...] by | | | | | | [facility] [address] [place], | | | | | | [place] [address] | | | | + + + + + + + + | Specimen | + + | Blood specimen | | (specimen) | + + + + + + + | Performing | Address | City/State/Zipcode | Phone Number | | Organization | | | | + + + + + | [facility] | [address] | [place] [address] | | | [facility] | | | | | LABORATORY [...] | | LABORATORY | | | | [facility] [address] | | [place] | | | | [place] [address] | | | | + + + + + + + + | Specimen | + + | Blood specimen | | (specimen) | + + + + + + + | Performing | Address | City/State/Zipcode | Phone Number | | Organization | | | | + + + + + | [facility] | [address] | [place] [address] | | | [facility] | | | | | YANY [...] PROVIDE NCE | | | | by [facility] [address], | | SACRED | | | | [place] [address] | | HEART | | | |Performed by [facility] [address], [place] [address] | | MEDICAL | | | | [...] + | [facility] | [address] | [place] [address] | | | [facility] | | | | [...] CE | | | B-12 | by [facility] [address], | | SACRED | | | | [place] [address] | | HEART | | | |Performed by [facility] [address], [place] | | MEDICAL | | | [...] + + | [facility] | [address] | [place] | | | [facility] [...] by | | | | | | [facility] [address], | | | | | | [place] [address] | | | | + + + + + + + + | Specimen | + + | Blood specimen | | (specimen) | + + + + + + + | Performing | Address | City/State/Zipcode | Phone Number | | Organization | | | | + + + + + | [facility] | [address] [address] | [place] [address] | | | [facility] | | | | | LABORATORY [...] | | | POC | Performed by [facility] [address] | | SACRED | | | | [address] [place] | | HEART | | | | [address] | | MEDICAL | | | | [...] + | BETH LIZ | [address] | [place] [address] | | | [facility] | | | | | LABORATORY [...] | | | POC | Performed by [facility] [address] | | SACRED | | | | [address], [place] | | HEART | | | | [address] | | MEDICAL | | | | [...] + | BETH LIZ | [address] | [place] [address] | | | [facility] | | | | | LABORATORY [...] | | | POC | Performed by [facility] [address] | | SACRED | | | | [address] [place] | | HEART | | | | [address] | | MEDICAL | | | | [...] + | BETH LIZ | [address] | [place] [address] | | | [facility] | [...] | | | | | | LABORAT YADIAR | | | | | | JESI [...] PROVIDE NCE | | | | by [facility] [address], | | SACRED | | | | [place] [address] | | HEART | | | |Performed by [facility] [address], [place] [address] | | MEDICAL | | | | [...] + + | BETH LIZ | [address] | [place] | | | [facility] | | | | | LABORATORY [...] LUIS CE | | | | by [facility] [address], | | [place]USTO | | | | [place] | | HEART | | | |Performed by [facility] [address], [place] [address] | | MEDICAL | | | | [...] + + | BETH LIZ | [address] | [place] [address] | | | [facility] | [...] | | LABORATORY | | | | [facility] [address], | | CERNER | | | | [place] [address] | | | | + + + + + + + + | Specimen | + + | Blood specimen | | (specimen) | + + + + + + + | Performing | Address | City/State/Zipcode | Phone Number | | Organization | | | | + + + + + | BETH LZI | [address] | [place] [address] | | | [facility] | | | | | LABORATORY [...] | | | POC | Performed by [facility] [address] | | SACRED | | | | [address] [place] | | HEART | | | | [address] | | MEDICAL | | | | [...] + | PROVIDE[facility]SE [facility] | [address] | [place] [address] | | | [facility] | | | | | LABORATORY [...] | | | POC | Performed by [facility] [address] | | SACRED | | | | [address], [place] | | HEART | | | | [address] | | MEDICAL | | | | [...] + | BETH LIZ | [address] | [place] [address] | | | [facility] | | | | | LABORATORY [...] | SACRED | | | Total | [id number] | | HEART | | | | [address] [place], [place] | | MEDICAL | | | | [id number] Daniel | | CENTER | | | | L Ph:[phone] | | LABORATORY | | | | [...] + + | BETH LIZ | [address] | [place] [address] | | | [facility] | | | | | LABORATORY [...] | SACRED | | | | by [facility] [address], | | HEART | | | | [place] [address] | | MEDICAL | | | | [...] [address] | [place] [address] | | | [facility] | | | | | LABORATORY [...] | SACRED | | | | by [facility] [address], | | HEART | | | | [place] [address] | | MEDICAL | | | | [...] + + | BETH LIZ | [address] | [place] [address] | | | [facility] | | | | | LABORATORY [...] | MEDICAL | | | | by [facility] [address], | | CENTER | | | | [place] [address] | | LABORATORY | | | |Performed by [facility] [address], [place] [address] | | CERNER | | | | [...] + + | BETH LIZ | [address] | [place] [address] | | | [facility] | | | | | LABORATORY [...] | | | POC | Performed by [facility] [address] | | [place]CR[place]ANS | | | | [place] | | HEART | | | | [address] | | MEDICAL | | | | [...] + | BETH LIZ | [address] | [place] [address] | | | [facility] | | | | | LABORATORY [...] | | | POC | Performed by [facility] [address] | | SACRED | [...] [address] | [place] [address] | | | [facility] | | | | | LABORATORY [...] CENTER | | | | 3.5Performed by [facility] [address] | | LABORATORY | | | | [address], [place] | | [place] | | | | [address] | | | | + + + + + + + + | Specimen | + + | Blood specimen | | (specimen) | + + + + + + + | Performing | Address | City/State/Zipcode | Phone Number | | Organization | | | | + + + + + | BETH LIZ | [address] | [place] [address] | | | [facility] | | | | | YANY [...] | | | Immature | Performed by [facility] [address] | K/uL | SACRED | | | Granulocyte | [place] | | HEART | | | s | [phone] | | MEDICAL | | | | [...] + + | BETH LIZ | [address] | [place] [address] | | | [facility] | | | | | LABORATORY [...] | | LABORATORY | | | | [facility] [address], | | [place]ES[place] | | | | [place] [address] | | | | + + + + + + + + | Specimen | + + | Blood specimen | | (specimen) | + + + + + + + | Performing | Address | City/State/Zipcode | Phone Number | | Organization | | | | + + + + + | BETH LIZ | [address] | [place] [address] | | | [facility] | | | | | LABORATORY [...] | | | | First dose on [facility] 03/30/19 at 1130 | | AM [...] | | | | First dose on [facility] 03/30/19 at 2100 | | PM [...] scheduled: AC, NPO, Daytime | | | 9665-3410 Use NIGHT DOSE for | | | doses scheduled: HS, 3AM, | | | Nighttime 8453-4852 If the BG is | | | [...] | | | | | | | [place] 10/325 if ordered., | | | | [...]
--- OUTSIDE RECORDS SUMMARY | ~2019-08-24 | XMS | Encounter Summary ---
Demographics + + + | Address | [address] | | | [place] [address] | + + + | Home Phone [...] + + | Author | [facility] | | | and [place] | + + + | Organization | [facility] | | | and [place] | + + + | Address | Unknown | + + + | Phone | Unavailable | + + + Support + + + + + | Name | Relationship | Address | Phone | + + + + + | India Tilley | ECON | [address] | | | | | [place], [place] | | | | | [address] | | + + + + + | Yina La | ECON | Unknown | | + + + + + | Yina Peterson | ECON | Unknown | | + + + + + | Leatha Casillas | ECON | Unknown | | + + + + + Care Team Providers + +------+ + | Care Pharmacy Delivery Driver Name | Role | Phone | + [...] + | 09/22/ | Telephone | [facility] | Darlin Moseley W, | Nephrology | | 2018 | | NEPHROLOGY [address] | [address] | Appointment | | | | [facility] | [address] [place] | | | | | [place] | [place] [address] | | | | | [address] | [phone] | | | | | [phone] | | | +--------+ + + + [...]
--- OUTSIDE RECORDS SUMMARY | ~2019-08-24 | XMS | Encounter Summary ---
Demographics + + + | Address | [address] | | | [place] [address] | + + + | Home Phone [...] | Author | [facility] | | | and [place]it[place] | + + + | Organization | [facility] | | | and [place] | + + + | Address | Unknown | + + + | Phone | Unavailable | + + + Support + + + + + | Name | Relationship | Address | Phone | + + + + + | India Tilley | ECON | [address] | | | | | [place], [place] | | | | | [address] | | + + + + + | Yina La | ECON | Unknown | | + + + + + | Yina Peterson | ECON | Unknown | | + + + + + | Leatha Casillas | ECON | Unknown | | + + + + + Care Team Providers + +------+ + | Care Research Food Technologist Name | Role | Phone | + [...] | renal | PA-C 2229 | [address] | | | | | disease | [address] | [place], [place] | | | | | ([facility]) | [place] | 100 [facility] | | | | | Procedures | [address] | [facility] [place] | | | | | [place] ESRD | [facility] | [address] Phone: | | | | | RELATED [place] | [place] | [phone] | | | | | MONTHLY | [address] | Fax: | | | | | 20&/> YR OLD | Phone: | [phone] | | | | | 4/> VISITS | [phone] | | | | | | | Fax: | | | | | | | [phone] | | + +--------+ + + + + Encounter Details +--------+ + + + + | Date | Type | Department | Care Team | Description | +--------+ + + + + | 10/31/ | Off-Site | [facility] | Gopi Muñoz | End stage renal | | 2019 | Visit | NEPHROLOGY [address] | M, DO [address] | disease (HCC) | | | | [address] | [place], [address] | (Primary Dx) | | | | [place] | [place], [place] | | | | | [address] | [address] | | | | | [phone] | | | +--------+ + + + [...]
--- OUTSIDE RECORDS SUMMARY | ~2019-08-24 | XMS | Encounter Summary ---
Demographics + + + | Address | [address] | | | [place] [address] | + + + | Home Phone [...] + + | Author | [facility] | | | and [place] | + + + | Organization | [facility] | | | and [place] | + + + | Address | Unknown | + + + | Phone | Unavailable | + + + Support + + + + + | Name | Relationship | Address | Phone | + + + + + | India Tilley | ECON | [address] | | | | | [place], [place] | | | | | [address] | | + + + + + | Yina La | ECON | Unknown | | + + + + + | Yina Peterson | ECON | Unknown | | + + + + + | Leatha Casillas | ECON | Unknown | | + + + + + Care Team Providers + +------+ + | Care Meat Loiner Name | Role | Phone | + +------+ + PCP | Unavailable | + +------+ + Encounter Details +--------+ + + + + | Date | Type | Department | Care Team | Description | +--------+ + + + + | 06/19/ | Telephone | [facility] | Ibis Arriola | | | 2019 | | [facility] | L, RN | | | | | [address] | | | | | | [place] | | | | | | [address] | | | | | | [phone] | | | +--------+ + + + [...]
--- OUTSIDE RECORDS SUMMARY | ~2019-08-24 | XMS | Encounter Summary ---
Demographics + + + | Address | [address] | | | [place] [address] | + + + | Home Phone [...] Author | [facility] | | | and [place] | + + + | Organization | [facility] | | | and [place] | + + + | Address | Unknown | + + + | Phone | Unavailable | + + + Support + + + + + | Name | Relationship | Address | Phone | + + + + + | India Tilley | ECON | [address] | | | | | [place], [place] | | | | | [address] | | + + + + + | Yina La | ECON | Unknown | | + + + + + | Yina Peterson | ECON | Unknown | | + + + + + | Leatha Casillas | ECON | Unknown | | + + + + + Care Team Providers + +------+ + | Care Breast Splitter Name | Role | Phone | + +------+ + PCP | Unavailable | + +------+ + Encounter Details +--------+ + + + + | Date | Type | Department | Care Team | Description | +--------+ + + + + | 05/26/ | Abstract | [facility] | Darlin Moseley W, | | | 2016 | | NEPHROLOGY [address] | [address] | | | | | [address] | [address] [facility] | | | | | [place] | [place] [address] | | | | | [address] | [phone] | | | | | [phone] | | | +--------+ + + + [...] | EXTERNAL LAB: BUN | Routin | 05/06/2017 | | Results [...] +--------+ + + + | EXTERNAL LAB: GERALD | Routin | 05/06/2017 | | Results for this | | | e | | | procedure are in the | | | | | | results section. | + +--------+ + + + | EXTERNAL LAB: ALEX | Routin | 05/06/2017 | | Results [...] 1.012 | | EXTERNAL | | | [place], | | | LAB | | | [...] + +---------+ + + External Lab: BUN (05/06/2017) + +-------+ + + + | [...]
--- OUTSIDE RECORDS SUMMARY | ~2019-08-24 | XMS | Encounter Summary ---
Demographics + + + | Address | [address] | | | [place] [address] | + + + | Home Phone [...] + + + | Author | [facility] | | | and [place] | + + + | Organization | [facility] | | | and [place] | + + + | Address | Unknown | + + + | Phone | Unavailable | + + + Support + + + + + | Name | Relationship | Address | Phone | + + + + + | India Tilley | ECON | [address] | | | | | [place], [place] | | | | | [address] | | + + + + + | Yina La | ECON | Unknown | | + + + + + | Yina Peterson | ECON | Unknown | | + + + + + | Leatha Casillas | ECON | Unknown | | + + + + + Care Team Providers + +------+ + | Care Radiation Control Technician Name | Role | Phone | + +------+ + PCP | Unavailable | + +------+ + Encounter Details +--------+ + + + + | Date | Type | Department | Care Team | Description | +--------+ + + + + | 10/21/ | Abstract | [facility] | Santos Stephenson | | | 2018 | | SURGERY [address] | MD Kinga, FACS [address] | | | | | [address] [place], [place] | [address] [facility] | | | | | [address] | [place] [address] | | | | | [phone] | [phone] | | | | | | | [...]
--- OUTSIDE RECORDS SUMMARY | ~2019-08-24 | XMS | Encounter Summary ---
Demographics + + + | Address | [address] | | | [place] [address] | + + + | Home Phone [...] | Author | [facility] | | | and [place] | + + + | Organization | [facility] | | | and [place] | + + + | Address | Unknown | + + + | Phone | Unavailable | + + + Support + + + + + | Name | Relationship | Address | Phone | + + + + + | India Tilley | ECON | [address] | | | | | [place], [place] | | | | | [address] | | + + + + + | Yina La | ECON | Unknown | | + + + + + | Yina Peterson | ECON | Unknown | | + + + + + | Leatha Casillas | ECON | Unknown | | + + + + + Care Team Providers + +------+ + | Care Sheet Turner Name | Role | Phone | + [...] Refill | | | | [address] [place] | [place] | | | | | [place] | [address] | | | | | [address] | | | | | | [phone] | | | +--------+--------+ + + + [...]
--- OUTSIDE RECORDS SUMMARY | ~2019-08-24 | XMS | Encounter Summary ---
Demographics + + + | Address | [address] | | | [place] [address] | + + + | Home Phone [...] | Author | [facility] | | | and [place] | + + + | Organization | [facility] | | | and [place] | + + + | Address | Unknown | + + + | Phone | Unavailable | + + + Support + + + + + | Name | Relationship | Address | Phone | + + + + + | India Tilley | ECON | [address] | | | | | [place], [place] | | | | | [address] | | + + + + + | Yina La | ECON | Unknown | | + + + + + | Yina Peterson | ECON | Unknown | | + + + + + | Leatha Casillas | ECON | Unknown | | + + + + + Care Team Providers + +------+ + | Care Mine Wedge Sawyer Name | Role | Phone | + +------+ + PCP | Unavailable | + +------+ + Encounter Details +--------+ + + + + | Date | Type | Department | Care Team | Description | +--------+ + + + + | 05/16/ | Abstract | [facility] | Gopi Muñoz | | | 2018 | | NEPHROLOGY [address] | M, DO [address] | | | | | [address] [facility] | [place], [facility] 100 | | | | | [place], [place] | [place] | | | | | [address] | [address] | | | | | [phone] | | | +--------+ + + + [...]
--- OUTSIDE RECORDS SUMMARY | ~2019-08-24 | XMS | Encounter Summary ---
Demographics + + + | Address | [address] | | | [place] [address] | + + + | Home Phone [...] Author | [facility] | | | and [place] | + + + | Organization | [facility] | | | and [place] | + + + | Address | Unknown | + + + | Phone | Unavailable | + + + Support + + + + + | Name | Relationship | Address | Phone | + + + + + | India Tilley | ECON | [address] | | | | | [place], [place] | | | | | [address] | | + + + + + | Yina La | ECON | Unknown | | + + + + + | Yina Peterson | ECON | Unknown | | + + + + + | Leatha Casillas | ECON | Unknown | | + + + + + Care Team Providers + +------+ + | Care Manager Emergency Name | Role | Phone | + [...] + | 01/03/ | Telephone | [facility] | Santos Stephenson | Surgery Appointment | | 2018 | | SURGERY [address] | MD Kinga, FACS [address] | | | | | [address] [place], [place] | [address] [facility] | | | | | [address] | [place] [address] | | | | | [phone] | [phone] | | | | | | | [...]
--- OUTSIDE RECORDS SUMMARY | ~2019-08-24 | XMS | Encounter Summary ---
Demographics + + + | Address | [address] | | | [place] [address] | + + + | Home Phone [...] Author | [facility] | | | and [place] | + + + | Organization | [facility] | | | and [place] | + + + | Address | Unknown | + + + | Phone | Unavailable | + + + Support + + + + + | Name | Relationship | Address | Phone | + + + + + | India Tilley | ECON | [address] | | | | | [place], [place] | | | | | [address] | | + + + + + | Yina La | ECON | Unknown | | + + + + + | Yina Peterson | ECON | Unknown | | + + + + + | Leatha Casillas | ECON | Unknown | | + + + + + Care Team Providers + +------+ + | Care Ranch Rider Name | Role | Phone | + +------+ + | DangeloRenato DIETITIAN CHIEF | PCP | | + +------+ + Reason for Visit + + + | Reason | Comments | + + + | Appointment | schedule | + + + Encounter Details +--------+ + + + + | Date | Type | Department | Care Team | Description | +--------+ + + + + | 06/27/ | Telephone | [facility] | Ta Melendez, | Appointment | | 2018 | | INTERVENTIONAL | MD Chidi Ibanez | (schedule) | | | | RADIOLOGY [address] | [address] | | | | | [address] | [place] [address] | | | | | [place], [place] | [phone] | | | | | [address] | | | | | | [phone] | | | +--------+ + + + [...]
--- OUTSIDE RECORDS SUMMARY | ~2019-08-24 | XMS | Encounter Summary ---
Demographics + + + | Address | [address] | | | [place] [address] | + + + | Home Phone [...] + + + | Author | [facility] | | | and [place] | + + + | Organization | [facility] | | | and [place] | + + + | Address | Unknown | + + + | Phone | Unavailable | + + + Support + + + + + | Name | Relationship | Address | Phone | + + + + + | India Tilley | ECON | [address] | | | | | [place], [place] | | | | | [address] | | + + + + + | Yina La | ECON | Unknown | | + + + + + | Yina Peterson | ECON | Unknown | | + + + + + | Leatha Casillas | ECON | Unknown | | + + + + + Care Team Providers + +------+ + | Care Corporate Communications Associate Name | Role | Phone | [...] | ([facility]) | | | +--------+--------+ + + [...] SCREWS | | | | [address] | [place] | | | | | [place] | [address] | | | | | [address] | | | | | | [phone] | | | +--------+---------+ + + + [...] Electronically signed by: Scott Koroma, 12/20/2018 12:05 PEACEHEALTHElectronically signed by Scott Koroma MD at 05/2019 12:10 PM PDTdocumented in this encounter Discharge Instructions Instructions Gopi Muñoz DO - . Please keep your old HD appt. at [facility] for 12/12/2018. 2. Call our Office if you change your mind and wish to go to [facility] , for further R ehab. 3. Home [...] might be d ifferent from the original. [facility] [address] [place] [address] PROGRESS NOTE Pt. Name/Age/: Estefani Tilley 73 y.o. 1945 Med. Record Number: [id number] Date of admission: 12/04/2018 NEPHROLOGY HPI - [...] HD tomorrow and assess for DC soon. [facility] Amol Green MD - 12/08/2018 3:29 [...] going to any Rehab. Ctr after DC. [facility] Scott Tadeo MD - 12/07/2018 8:56 [...] rick, DO - 12/06/2018 5:33 PM PDT [facility] [address] [place] [address] PROGRESS NOTE Pt. Name/Age/: Estefani Tilley 73 y.o. 1945 Med. Record Number: [id number] Date of admission: 12/04/2018 NEPHROLOGY HPI - [...] Lungs: Prolonged expiratory phase, with findings of Badger rales lower 1/4 both lungs. 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 Answered questions with head nods or patients stating that she was not taking a medication. 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 Historical Provider, epoetin karthik (EPOGEN, PROCRIT) 10,000 [...] performed and electronically signed by Kerry Jordan, Senior Manager Asset Protection 12/05/2018 14:45 Reviewed by Flora Watts, PharmD [...] R?MRN: | | | | | | [id number] | | | [id number] | | | riteri | | | [...] | | | St. | | | [place] | | | y | | | [...] | | | [facility] | | | [place] | | | 3 0 | | | [facility] | | | St[facility] | | | [place] | | | y | | | [...] | | | St. | | | [place] | | | y H. | | [...] | | e of | | | [place] | | | | | | [...] | | | St. | | | [place] | | | y H. | | [...] the | | | | | | latex foam worker | | | al | | | [...] | | | St. | | | [place] | | | y H. | | [...] | | e of | | | [place] | | | | | | [...] | | | [facility] | | | [place] | | | [place] | | | ID | | | [...] | | | [facility] | | | [place] | | | [place] | | | ID | | | [...] | | | [facility] | | | [place] | | | [place] | | | ID | | | [...] | | | [facility] | | | [place] | | | [place] | | | ID | | | [...] | | | [facility] | | | [place] | | | [place] | | | ID | | | [...] | | | [facility] | | | [place] | | | | | | HEALTH [...] | | | [id number] | | | [id number] | | | 3131 | | | [...] + | [facility] | [address] | [place] | [phone] | | [facility] | | [address] | | | - LABORATORY | | [...] [address] | [place] | [phone] | | [facility] | | [address] | | | - LABORATORY | | [...] + | [facility] | [address] | [place] | [phone] | | [facility] | | [address] | | | - LABORATORY | | [...] | | POC | | | [facility] | | | | | | [...] [address] | [place] | [phone] | | [facility] | | [address] | | | - LABORATORY | | [...] [address] | [place] | [phone] | | [facility] | | [address] | | | - LABORATORY | | [...] [address] | [place] | [phone] | | [facility] | | [address] | | | - LABORATORY | | [...] ST. | [address] | [place], [place] | [phone] | | [facility] | | [address] | | | - LABORATORY | | [...] | nRBC | | K/uL | [facility] | | | | | | [...] [address] | [place] | [phone] | | [facility] | | [address] | | | - LABORATORY | | [...] + | [facility] | [address] | [place] | [phone] | | [facility] | | [address] | | | - LABORATORY | | [...] [address] | [place] | [phone] | | [facility] | | [address] | | | - LABORATORY | | [...] [address] | [place] | [phone] | | [facility] | | [address] | | | - LABORATORY | | [...] [address] | [place] | [phone] | | [facility] | | [address] | | | - LABORATORY | | [...] + | [facility] | [address] | [place] | [phone] | | [facility] | | [address] | | | - LABORATORY | | [...] | | A1c | | | [facility] | | | | | | [...] [address] | [place] | [phone] | | [facility] | | [address] | | | - LABORATORY | | [...] + | [facility] | [address] | [place] | [phone] | | [facility] | | [address] | | | - LABORATORY | | [...] [address] | [place] | [phone] | | [facility] | | [address] | | | - LABORATORY | | [...] [address] | [place] | [phone] | | [facility] | | [address] | | | - LABORATORY | | [...] + | [facility] | [address] | [place] | [phone] | | [facility] | | [address] | | | - LABORATORY | | [...] [address] | [place] | [phone] | | [facility] | | [address] | | | - LABORATORY | | [...] [address] | [place] | [phone] | | [facility] | | [address] | | | - LABORATORY | | [...] [address] | [place] | [phone] | | [facility] | | [address] | | | - LABORATORY | | [...] + | [facility] | [address] | [place] | [phone] | | [facility] | | [address] | | | - LABORATORY | | [...] mL/min/1.73m2 | [facility] | | | [place] | | | MEDICAL | | | [...] [address] | [place] | [phone] | | [facility] | | [address] | | | - LABORATORY | | [...] | | | | | | [facility] | | | | | | MEDICAL [...] + | [facility] | [address] | [place] | [phone] | | [facility] | | [address] | | | - LABORATORY | | [...] [address] | [place] | [phone] | | [facility] | | [address] | | | - LABORATORY | | [...] + + | Performing | Address | City/State[facility] | Phone Number | | Organization | | | | + + + + + | [facility] | [address] | [place] | [phone] | | [facility] | | [address] | | | - LABORATORY | | [...] [address] | [place] | [phone] | | [facility] | | [address] | | | - LABORATORY | | [...] + | [facility] | [address] | [place] | [phone] | | [facility] | | [address] | | | - LABORATORY | | [...] + | [facility] | [address] | [place] | [phone] | | [facility] | | [address] | | | - LABORATORY | | [...] [address] | [place] | [phone] | | [facility] | | [address] | | | - LABORATORY | | [...] mL/min/1.73m2 | [facility] | | | [place] | | | MEDICAL | | | [...] ST. | [address] | [place], [place] | [phone] | | [facility] | | [address] | | | - LABORATORY | | [...] [address] | [place] | [phone] | | [facility] | | [address] | | | - LABORATORY | | [...] scheduled: AC, NPO, Daytime | | | 0660-7571 Use NIGHT DOSE for | | | doses scheduled: HS, 3AM, | | | Nighttime 4828-4930, | | + +---+ | | | [...] | | | HR < 60, Starting [place] 12/04/18 at | | | | | [...]
--- OUTSIDE RECORDS SUMMARY | ~2019-08-24 | XMS | Encounter Summary ---
Demographics + + + | Address | [address] | | | [place] [address] | + + + | Home Phone [...] + | Author | [facility] | | | and [place] | + + + | Organization | [facility] | | | and [place] | + + + | Address | Unknown | + + + | Phone | Unavailable | + + + Support + + + + + | Name | Relationship | Address | Phone | + + + + + | India Tilley | ECON | [address] | | | | | [place], [place] | | | | | [address] | | + + + + + | Yina La | ECON | Unknown | | + + + + + | Yina Peterson | ECON | Unknown | | + + + + + | Leatha Casillas | ECON | Unknown | | + + + + + Care Team Providers + +------+ + | Care Logistics Management Specialist Name | Role | Phone [...] + + | 07/26/ | Telephone | [facility] | Francisca Robert, | Surgery Appointment | | 2019 | | VASCULAR SURGERY | RN | | | | | [address] | | | | | | [place] | | | | | | [address] | | | | | | [phone] | | | +--------+ + + + [...]
--- OUTSIDE RECORDS SUMMARY | ~2019-08-24 | XMS | Encounter Summary ---
Demographics + + + | Address | [address] | | | [place] [address] | + + + | Home Phone [...] + | Author | [facility] | | | and [place]it[place] | + + + | Organization | [facility] | | | and [place] | + + + | Address | Unknown | + + + | Phone | Unavailable | + + + Support + + + + + | Name | Relationship | Address | Phone | + + + + + | India Tilley | ECON | [address] | | | | | [place], [place] | | | | | [address] | | + + + + + | Yina La | ECON | Unknown | | + + + + + | Yina Peterson | ECON | Unknown | | + + + + + | Leatha Casillas | ECON | Unknown | | + + + + + Care Team Providers + +------+ + | Care Pump And Still Operator Name | Role | Phone | + +------+ + PCP | Unavailable | + +------+ + Encounter Details +--------+ + + + + | Date | Type | Department | Care Team | Description | +--------+ + + + + | 07/26/ | Hospital | [facility] | Anna Banegas MD | Unspecified Backache | | 2006 | Encounter | [address] | [address] | | | | | [address] | [place], [place] | | | | | [place], [place] | [id number] | | | | | [address] | | | | | | [phone] | | | +--------+ + + + [...]
--- OUTSIDE RECORDS SUMMARY | ~2019-08-24 | XMS | Encounter Summary ---
Demographics + + + | Address | [address] | | | [place] [address] | + + + | Home Phone [...] Author | [facility] | | | and [place] | + + + | Organization | [facility] | | | and [place] | + + + | Address | Unknown | + + + | Phone | Unavailable | + + + Support + + + + + | Name | Relationship | Address | Phone | + + + + + | India Tilley | ECON | [address] | | | | | [place], [place] | | | | | [address] | | + + + + + | Yina La | ECON | Unknown | | + + + + + | Yina Peterson | ECON | Unknown | | + + + + + | Leatha Casillas | ECON | Unknown | | + + + + + Care Team Providers + +------+ + | Care Registration Officer Name | Role | Phone | [...] | renal | PA-C [address] | [address] | | | | | disease | [place] | [place] | | | | | ([facility]) | [place] | [address] | | | | | Procedures | [address] | [address] | | | | | [place] ESRD | [facility] | [address] Phone: | | | | | RELATED [place] | [place] | [phone] | | | | | MONTHLY | [address] | Fax: | | | | | 20&/> YR OLD | Phone: | [phone] | | | | | 4/> VISITS | [phone] | | | | | | | Fax: | | | | | | | [phone] | | + +--------+ + + + + Encounter Details +--------+ + + + + | Date | Type | Department | Care Team | Description | +--------+ + + + + | 05/08/ | Off-Site | [facility] | Gopi Muñoz | Osteomyelitis, | | 2019 | Visit | NEPHROLOGY [address] | M, DO [address] | unspecified site, | | | | [address] | [place] [place] [address] | unspecified type | | | | [place], [place] | [place] [address], [place] | (HCC) (Primary Dx); | | | | [address] | [address] | ESRD (end stage | | | | [phone] | | renal disease) on | | [...] not seen.schedule an office visit will at [facility], 2019.] documented in thi s encounter Plan of Treatment Not on filedocumented as of this encounter Visit Diagnoses + + | Diagnosis | + + | Osteomyelitis, unspecified site, unspecified type ([facility]) - Primary | + + | ESRD (end stage renal disease) on dialysis ([facility]) End stage renal disease | + + documented in this encounter"
--- OUTSIDE RECORDS SUMMARY | ~2019-08-24 | XMS | Encounter Summary ---
Demographics + + + | Address | [address] | | | [place] [address] | + + + | Home Phone [...] + + | Author | [facility] | | | and [place] | + + + | Organization | [facility] | | | and [place] | + + + | Address | Unknown | + + + | Phone | Unavailable | + + + Support + + + + + | Name | Relationship | Address | Phone | + + + + + | India Tilley | ECON | [address] | | | | | [place], [place] | | | | | [address] | | + + + + + | Yina La | ECON | Unknown | | + + + + + | Yina Peterson | ECON | Unknown | | + + + + + | Leatha Casillas | ECON | Unknown | | + + + + + Care Team Providers + +------+ + | Care Neurology Physician Assistant Name | Role | Phone | + +------+ + | DangeloRenato WEIGHTS AND MEASURES INSPECTOR | PCP | | + +------+ + Reason for Visit + + + | Reason | Comments | + + + | Appointment | schedule | + + + Encounter Details +--------+ + + + + | Date | Type | Department | Care Team | Description | +--------+ + + + + | 06/27/ | Telephone | [facility] | Ta Melendez, | Appointment | | 2018 | | INTERVENTIONAL | MD Chidi Ibanez | (schedule) | | | | RADIOLOGY [address] | [address] | | | | | [address] | [place] [address] | | | | | [place], [place] | [phone] | | | | | [address] | | | | | | [phone] | | | +--------+ + + + [...]
--- OUTSIDE RECORDS SUMMARY | ~2019-08-24 | XMS | Encounter Summary ---
Demographics + + + | Address | [address] | | | [place] [address] | + + + | Home Phone [...] | Author | [facility] | | | and [place] | + + + | Organization | [facility] | | | and [place] | + + + | Address | Unknown | + + + | Phone | Unavailable | + + + Support + + + + + | Name | Relationship | Address | Phone | + + + + + | India Tilley | ECON | [address] | | | | | [place], [place] | | | | | [address] | | + + + + + | Yina La | ECON | Unknown | | + + + + + | Yina Peterson | ECON | Unknown | | + + + + + | Leatha Casillas | ECON | Unknown | | + + + + + Care Team Providers + +------+ + | Care Well Service Derrick Worker Name | Role | Phone | + +------+ + PCP | Unavailable | + +------+ + Encounter Details +--------+ + + + + | Date | Type | Department | Care Team | Description | +--------+ + + + + | 07/22/ | Hospital | [facility] | Gopi Muñoz | | | 2005 | Encounter | MED CTR XRAY [address] | M, DO [address] | | | | | [place] | [place] [place] [address] | | | | | [place] [address] | [place] | | | | | [phone] | [address] | | | | | [...]
--- OUTSIDE RECORDS SUMMARY | ~2019-08-24 | XMS | Encounter Summary ---
Demographics + + + | Address | [address] | | | [place] [address] | + + + | Home Phone [...] + + + | Author | [facility] | | | and [place] | + + + | Organization | [facility] | | | and [place] | + + + | Address | Unknown | + + + | Phone | Unavailable | + + + Support + + + + + | Name | Relationship | Address | Phone | + + + + + | India Tilley | ECON | [address] | | | | | [place], [place] | | | | | [address] | | + + + + + | Yina La | ECON | Unknown | | + + + + + | Yina Peterson | ECON | Unknown | | + + + + + | Leatha Casillas | ECON | Unknown | | + + + + + Care Team Providers + +------+ + | Care Heading And Priming Tool Setter Name | Role | Phone | [...] | [address] | [place] | initial encounter | | | | [place] | [address] | ([facility]) (Primary Dx); | | | | [address] | | Right hip pain; H/O | | | | [phone] | | major orthopedic | | | [...]
--- OUTSIDE RECORDS SUMMARY | ~2019-08-24 | XMS | Encounter Summary ---
Demographics + + + | Address | [address] | | | [place] [address] | + + + | Home Phone [...] | Author | [facility] | | | and [place]it[place] | + + + | Organization | [facility] | | | and [place] | + + + | Address | Unknown | + + + | Phone | Unavailable | + + + Support + + + + + | Name | Relationship | Address | Phone | + + + + + | India Tilley | ECON | [address] | | | | | [place], [place] | | | | | [address] | | + + + + + | Yina La | ECON | Unknown | | + + + + + | Yina Peterson | ECON | Unknown | | + + + + + | Leatha Casillas | ECON | Unknown | | + + + + + Care Team Providers + +------+ + | Care Human Resources Designate Name | Role | Phone | + [...] | al disc | [address] | [place], [place] | | | | | (pyogenic), | [place], [place] | [address] | | | | | thoracic | [address] | Phone: | | | | | region ([facility]) | Phone: | [phone] | | | | | | [phone] | Fax: | | | | | 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: | [phone] | | | | | s of | [phone] | | | | | | thoracic [...] | | | vertebra, | [place], | [place] | | | | | site | [place] [address] | [address] | | | | | unspecified | Phone: | Phone: | | | | | ([facility]) | [phone] | [phone] | | | | | Procedures | Fax: | Fax: | | | | | PA OFFICE | [phone] | [phone] | | | | | OUTPATIENT | | | | | | | NEW 60 | | | | | | | MINUTES | | | + +--------+ + + + + Encounter Details +--------+---------+ + + + | Date | Type | Department | Care Team | Description | +--------+---------+ + + + | 05/18/ | Office | [facility] | Fabiana Miller, | 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 | 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 Complete MRI as soon as possible. Complete lab testing today.Electronically signed by Nick Miller MD at 01/2019 2:01 PM PDT documented in this encounter Progress Notes Nick Pritchard MD - 05/18/2019 1:20 PM PDT [facility]: Infectious Diseases Initial Outpatient Consult [...] with diabetic nephropathy, with dialysis via a [facility] upper extremity AV fistula on Wednesdays and Fridays, seen in consultation for p ossible discitis and osteomyelitis. History is obtained from: Patient, limited medical records from outside referring provider. The patient presents to clinic referred by Dr. Mat Brooks from orthopedic surgery in [facility]. 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 The patient states that she was on [...] W/CANNULATED SCREWS; Surgeon: Scott Koroma MD; Location: [facility] MAIN OR HYSTERECTOMY MASTECTOMY 2006 left ear NOSE SURGERY 2009 OTHER SURGICAL HISTORY Right 03/28/2019 Procedure: TUNNEL PICC LINE PLACEMENT-6fr 22cm BARD Power Line; Surgeon: Jose Jiménez MD; Location: [facility] REMOVAL TUNNELED CATHETER Right 04/04/[address] Stephenson SHUNT PLACEMENT/INSERTION N/A 11/08/2017 Procedure: Tunneled Hemodialysis Catheter Placement; Surgeon: Nora Leo MD; Location : [facility] MAIN OR SHUNT PLACEMENT/INSERTION Right 02/04/2018 Procedure: INSERTION SHUNT HEMODIALYSIS W/ PERMACATH; Surgeon: Heather Navarro MD; L ocation: [facility] MAIN OR VEIN SURGERY Right 01/04/2018 Procedure: Right Transposed Basilic Vein to Proximal Radial Artery; Surgeon: Santos Stephenson MD, FACS; Location: [facility] MAIN OR Social History Socioeconomic History [...] INFLUENZA QUADR W/PRES (PED/ADOL/ADULT) MULTIDOSE 06/27/2014 INFLUENZA, [id number], UNSPECIFIED 08/28/2009 INFLUENZA, UNSPECIFIED FORMULATION 07/03/1992, 06/18/1993, [...] REFERENCE | | | | performed at [facility];[address] | | LAB | | | | [facility] | | [facility] | | | | [address];[place] [address] | | LABORATORY | | + + + + + + + + | Specimen | + + | Blood | + + + + + + + | Performing | Address | City/State/Zipcode | Phone Number | | Organization | | | | + + + + + | REFERENCE LAB | [address] | [place] [address] | [phone] | | [facility] | Blvd[address] | | | | LABORATORY | | | | + + + + + | REFERENCE LAB | [address] | [place] [address] | | | [facility] | Blvd. | [...] REFERENCE | | | | performed at [facility];[address] | | LAB | | | | [place] | | [facility] | | | | Blvd;[place] [address] | | LABORATORY | | + + + + + + + + | Specimen | + + | Blood | + + + + + + + | Performing | Address | City/State/Zipcode | Phone Number | | Organization | | | | + + + + + | REFERENCE LAB | [address] [place] [address] | [place] [address] | [phone] | | [facility] | Blvd. | | | | LABORATORY | | | | + + + + + | REFERENCE LAB | [address] [place] [address] | [place] [address] | | | [facility] | Blvd. | [...] | | | | | performed at [facility];[address] | | | | | | [facility] | | | | | | Blvd;[place] [address] | | | | | | | | | | + + + + + + + + | Specimen | + + | Blood | + + + + + + + | Performing | Address | City/State/Zipcode | Phone Number | | Organization | | | | + + + + + | REFERENCE LAB | [address] | [place] [address] | [phone] | | [facility] | Blvd. | | | | LABORATORY | | | | + + + + + | REFERENCE LAB | [address] [place] [address] | [place] [address] | | | [facility] | Blvd. | [...] | | | Absolute | performed at [facility];[address] | K/uL | LAB | | | | [place] | | [facility] | | | | Bl[address];[place] [address] | | LABORATORY | | + + + + + + + + | Specimen | + + | Blood | + + + + + + + | Performing | Address | City/State/Zipcode | Phone Number | | Organization | | | | + + + + + | REFERENCE LAB | [address] | [place] [address] | [phone] | | [facility] | Blvd[address] | | | | LABORATORY | | | | + + + + + | REFERENCE LAB | [address] | [place] [address] | | | [facility] | Blvd. | [...] | | LAB | | | | Blvd;[place], [place] | | [facility] | | | | [id number]: Testing | | LABORATORY | | | | performed at [facility], [address] | | | | | [address], | | | | | | [place] [address] | | | | + + + [...] + + | REFERENCE LAB | [address] | [place] [address] | [phone] | | [facility] | Blvd. | | | | LABORATORY | | | | + + + + + | REFERENCE LAB | [address] | [place] [address] | | | [facility] | Blvd. | [...]
--- OUTSIDE RECORDS SUMMARY | ~2019-08-24 | XMS | Encounter Summary ---
Demographics + + + | Address | [address] | | | [place] [address] | + + + | Home Phone [...] + | Author | [facility] | | | and [place]it[place] | + + + | Organization | [facility] | | | and [place] | + + + | Address | Unknown | + + + | Phone | Unavailable | + + + Support + + + + + | Name | Relationship | Address | Phone | + + + + + | India Tilley | ECON | [address] | | | | | [place], [place] | | | | | [address] | | + + + + + | Yina La | ECON | Unknown | | + + + + + | Yina Peterson | ECON | Unknown | | + + + + + | Leatha Casillas | ECON | Unknown | | + + + + + Care Team Providers + +------+ + | Care Paid Intern Name | Role | Phone | [...] + + | 06/01/ | Telephone | [facility] | Gopi Muñoz | Other | | 2019 | | NEPHROLOGY [address] | M, DO [address] | | | | | [address] [facility] [address] | Jane Lew, [facility] [address] | | | | | [place], [place] | [place] | | | | | [address] | [address] | | | | | [phone] | | | +--------+ + + + [...]
--- OUTSIDE RECORDS SUMMARY | ~2019-08-24 | XMS | Encounter Summary ---
Demographics + + + | Address | [address] | | | [place] [address] | + + + | Home Phone [...] | Author | [facility] | | | and [place] | + + + | Organization | [facility] | | | and [place] | + + + | Address | Unknown | + + + | Phone | Unavailable | + + + Support + + + + + | Name | Relationship | Address | Phone | + + + + + | India Tilley | ECON | [address] | | | | | [place], [place] | | | | | [address] | | + + + + + | Yina La | ECON | Unknown | | + + + + + | iYna Peterson | ECON | Unknown | | + + + + + | Leatha Casillas | ECON | Unknown | | + + + + + Care Team Providers + +------+ + | Care Content Assistant Name | Role | Phone | [...] + + | 07/26/ | Telephone | [facility] | Francisca Robert, | Surgery Appointment | | 2019 | | VASCULAR SURGERY | RN | | | | | [address] | | | | | | [place] | | | | | | [address] | | | | | | [phone] | | | +--------+ + + + [...]
--- OUTSIDE RECORDS SUMMARY | ~2019-08-24 | XMS | Encounter Summary ---
Demographics + + + | Address | [address] | | | [place] [address] | + + + | Home Phone [...] Author | [facility] | | | and [place]it[place] | + + + | Organization | [facility] | | | and [place] | + + + | Address | Unknown | + + + | Phone | Unavailable | + + + Support + + + + + | Name | Relationship | Address | Phone | + + + + + | India Tilley | ECON | [address] | | | | | [place], [place] | | | | | [address] | | + + + + + | Yina La | ECON | Unknown | | + + + + + | Yina Peterson | ECON | Unknown | | + + + + + | Leatha Casillas | ECON | Unknown | | + + + + + Care Team Providers + +------+ + | Care Certified Fraud Examiner Name | Role | Phone | + +------+ + PCP | Unavailable | + +------+ + Encounter Details +--------+ + + + + | Date | Type | Department | Care Team | Description | +--------+ + + + + | 03/02/ | Hospital | [facility] | [place], | | | 2007 | Encounter | MED CTR EMERGENCY | Venkatesh Esteban MD [address] | | | | | [place] [address] | [facility] | | | | | [place], [place] | [place] [address] | | | | | [address] | [phone] | | | | | [phone] | | | +--------+ + + + [...]
--- OUTSIDE RECORDS SUMMARY | ~2019-08-24 | XMS | Encounter Summary ---
Demographics + + + | Address | [address] | | | [place] [address] | + + + | Home Phone [...] Author | [facility] | | | and [place] | + + + | Organization | [facility] | | | and [place] | + + + | Address | Unknown | + + + | Phone | Unavailable | + + + Support + + + + + | Name | Relationship | Address | Phone | + + + + + | India Tilley | ECON | [address] | | | | | [place], [place] | | | | | [address] | | + + + + + | Yina La | ECON | Unknown | | + + + + + | Yina Peterson | ECON | Unknown | | + + + + + | Leatha Casillas | ECON | Unknown | | + + + + + Care Team Providers + +------+ + | Care Superior Court Justice Name | Role | Phone | + +------+ + | Renato Pierson ACCOUNT MANAGEMENT ASSISTANT | PCP | | + +------+ + [...] | al disc | [address] | [place], [place] | | | | | (pyogenic), | [place], [place] | [address] | | | | | thoracic | [address] | Phone: | | | | | region ([facility]) | Phone: | [phone] | | | | | | [phone] | Fax: | | | | | 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: | [phone] | | | | | s of | [phone] | | | | | | thoracic | | | | | | | vertebra | | | | | | | ([facility]) | | | | | | [...] + + | 05/22/ | Hospital | [facility] | Fabiana Miller, | No Show | | 2019 | Encounter | [facility] MRI | Nick Apodaca MD | | | | | [address] | [address] | | | | | [place], [place] | [place] [address] | | | | | [address] | [phone] | | | | | [phone] | | | +--------+ + + + [...]
--- OUTSIDE RECORDS SUMMARY | ~2019-08-24 | XMS | Encounter Summary ---
Demographics + + + | Address | [address] | | | [place] [address] | + + + | Home Phone [...] Author | [facility] | | | and [place] | + + + | Organization | [facility] | | | and [place] | + + + | Address | Unknown | + + + | Phone | Unavailable | + + + Support + + + + + | Name | Relationship | Address | Phone | + + + + + | India Tilley | ECON | [address] | | | | | [place], [place] | | | | | [address] | | + + + + + | Yina La | ECON | Unknown | | + + + + + | Yina Peterson | ECON | Unknown | | + + + + + | Leatha Casillas | ECON | Unknown | | + + + + + Care Team Providers + +------+ + | Care Belt Loop Maker Name | Role | Phone | + [...] | | ([facility]) | | | | | | | Complication | | | | | | | s, dialysis, | | | | | | | catheter, | | | | | | | mechanical, | | | | | | | initial | | | | | | | encounter | | | | | | | ([facility]) | | | | | | | [...] + + + + | 02/04/ | Emergency | [facility] | [place], | Complications, | | 2018 - | | MED CTR SURGICAL | Venkatesh Esteban MD [address] | dialysis, catheter, | | | | [address] [place] | [address] [place] | mechanical, initial | | 02/05/ | | [place] [address] | [place] [address] | encounter ([facility]) | | 2018 | | [phone] | [phone] | (Primary Dx); End | | | | | | stage renal disease | | | | | Heather Navarro, | ([facility]) | | | | | [address] | | | | | | [place], [place] | | | | | | [phone] | | | | | | | [...] Office Phone Number to Contact Dr Navarro: [phone] Navarro's Office to schedule a follow up visit as needed - you will follow up with Dr Stephenson and at the dialysis center. Our office is located in the [facility] next door to Urgent Care. Other appointments [...] Wednesday 9:00-2:00PM. Call the General Surgery Office [phone] for the following: Persistent vomiting Diarrhea lasting [...] as possible. Limit sports and strenuous activities [id number]. Shower as usual. Gently wash around your [...] ST. | [address] | [place], [place] | [phone] | | [facility] | | [address] | | | - LABORATORY | | [...] + | Julian, Rad Results In - 02/04/2018 7:56 PM PDT [...] + | [facility] | [address] | [place], [place] | [phone] | | [facility] | | [address] | | | - LABORATORY | | [...] 3.57 (H) | 0.60 - 1.30 | [facility] | | | | | mg/dL | [facility] | | | | | | MEDICAL | | | | | | CENTER - | | | | | | LABORATORY | | + + + + + + | eGFR if not | 13 (L)Comment: | >=60 | [facility] | | | | GLOMERULAR FILTRATION | mL/min/1.73m2 | [facility] | | | FRENCH | RATE,ESTIMATED | | MEDICAL | | | | mL/min/1.93v7Louc than | | CENTER - | | [...] [address] | [place] | [phone] | | [facility] | | [address] | | | - LABORATORY | | | | + + + + + CBC with Differential (02/04/2018 7:21 PM PDT) + + + + + + | Component | Value | Ref Range | Performed | Pathologist | | | | | At | Signature | + + + + + + | WBC | 6.1 | 4.0 - 11.0 K/uL | [facility] [...] [address] | [place] | [phone] | | [facility] | | [address] | | | - LABORATORY | | | | + + + + + documented in this encounter Visit Diagnoses + + | Diagnosis | + + | Complications, dialysis, catheter, mechanical, initial encounter ([facility]) - Primary | + + | End stage renal disease ([facility]) End stage renal disease | + + | ESRD (end stage renal disease) on dialysis (HCC) End stage renal disease | + + documented in this encounter Administered Medications + +--------+---------+------+------+------+ | Medication Order | MAR | Action | Dose | Rate | Site | | | Action | Date | | | | + +--------+---------+------+------+------+ + +---+ | diphenhydrAMINE (BENADRYL) 12.5 | [...] | | | + +---+ + +-------+ +---------+---+---+ | HYDROmorphone (DILAUDID) | [...] agent. | | | Ondansetron IV is rod hanger | | | out. If patient cannot [...]
--- OUTSIDE RECORDS SUMMARY | ~2019-08-24 | XMS | Encounter Summary ---
Demographics + + + | Address | [address] | | | [place] [address] | + + + | Home Phone [...] + | Author | [facility] | | | and [place]it[place] | + + + | Organization | [facility] | | | and [place] | + + + | Address | Unknown | + + + | Phone | Unavailable | + + + Support + + + + + | Name | Relationship | Address | Phone | + + + + + | India Tilley | ECON | [address] | | | | | [place], [place] | | | | | [address] | | + + + + + | Yina La | ECON | Unknown | | + + + + + | Yina Peterson | ECON | Unknown | | + + + + + | Leatha Casillas | ECON | Unknown | | + + + + + Care Team Providers + +------+ + | Care Art Teacher Name | Role | Phone | + +------+ + | Renato PiersonP | PCP | | + +------+ + Reason for Visit + + + | Reason | Comments | + + + | Care Coordination | Patient Timeline - Line Care/Provider Management | + + + Encounter Details +--------+ + + + + | Date | Type | Department | Care Team | Description | +--------+ + + + + | 06/14/ | Telephone | [facility] | Tabatha Patel, | Care Coordination | | 2019 | | INFECTIOUS DISEASE | Public Works Commissioner | (Patient Timeline - | | | | [address] | | Line Care/Provider | | | | [place], [place] | | Management ) | | | | [address] | | | | | | [phone] | | | +--------+ + + + [...]
--- OUTSIDE RECORDS SUMMARY | ~2019-08-24 | XMS | Encounter Summary ---
Demographics + + + | Address | [address] | | | [place] [address] | + + + | Home Phone | | + + + | Preferred Language | Unknown | + + + | Marital Status | Single | + + + | Advent Affiliation | Unknown | + + + | Race | Unknown | + + + | Ethnic Group | Unknown | + + + Author + + + | Author | [facility] | | | and [place] | + + + | Organization | [facility] | | | and [place] | + + + | Address | Unknown | + + + | Phone | Unavailable | + + + Support + + + + + | Name | Relationship | Address | Phone | + + + + + | India Tilley | ECON | [address] | | | | | [place], [place] | | | | | [address] | | + + + + + | Yina La | ECON | Unknown | | + + + + + | Yina Peterson | ECON | Unknown | | + + + + + | Leatha Casillas | ECON | Unknown | | + + + + + Care Team Providers + +------+ + | Care Car Cooper Name | Role | Phone | + +------+ + PCP | Unavailable | + +------+ + Encounter Details +--------+ + + + + | Date | Type | Department | Care Team | Description | +--------+ + + + + | 10/22/ | Hospital | [facility] | Gopi Muñoz | Chronic kidney | | 2018 | Encounter | MED CTR ULTRASOUND | M, DO [address] | disease, stage V | | | | [address] [place] | [address] | ([facility]) | | | | [place], [place] | [place], [place] | | | | | [address] | [id number] | | | | | [phone] | | | | | | | [...] | | BILATERAL | | PST | ([facility]) | results section. | + +--------+ [...]
--- OUTSIDE RECORDS SUMMARY | ~2019-08-24 | XMS | Encounter Summary ---
Demographics + + + | Address | [address] | | | [place] [address] | + + + | Home Phone [...] Author | [facility] | | | and [place]al[place]it[place] | + + + | Organization | [facility] | | | and [place] | + + + | Address | Unknown | + + + | Phone | Unavailable | + + + Support + + + + + | Name | Relationship | Address | Phone | + + + + + | India Tilley | ECON | [address] | | | | | [place], [place] | | | | | [address] | | + + + + + | Yina La | ECON | Unknown | | + + + + + | Yina Peterson | ECON | Unknown | | + + + + + | Leatha Casillas | ECON | Unknown | | + + + + + Care Team Providers + +------+ + | Care Transmission System Operator Name | Role | Phone | [...] | [address] | [address], [place] | | | | | [place] | [address] [place] | | | | | [address] | [address] | | | | | [phone] | | | +--------+ + + + [...] Referral packet received from Dora Bruno PA-C, [facility] to nephrology. Sent to Malik owens signed by Tatiana Rendon at 03/24/2017 1:05 PM PDTdocumented in this encounter Plan of Treatment Not on filedocumented as of this encounter Visit Diagnoses Not on filedocumented in this encounter"
--- OUTSIDE RECORDS SUMMARY | ~2019-08-24 | XMS | Encounter Summary ---
Demographics + + + | Address | [address] | | | [place] [address] | + + + | Home Phone [...] | Author | [facility] | | | and [place]it[place] | + + + | Organization | [facility] | | | and [place] | + + + | Address | Unknown | + + + | Phone | Unavailable | + + + Support + + + + + | Name | Relationship | Address | Phone | + + + + + | India Tilley | ECON | [address] | | | | | [place], [place] | | | | | [address] | | + + + + + | Yina La | ECON | Unknown | | + + + + + | Yina Peterson | ECON | Unknown | | + + + + + | Leatha Casillas | ECON | Unknown | | + + + + + Care Team Providers + +------+ + | Care Coil Tester Name | Role | Phone | + +------+ + PCP | Unavailable | + +------+ + Encounter Details +--------+ + + + + | Date | Type | Department | Care Team | Description | +--------+ + + + + | 09/09/ | Hospital | [facility] | | | | 2005 - | Encounter | MED CTR CANCER | | | | | | CENTER [facility] [address] | | | | 09/12/ | | [place] | | | | 2005 | | [address] | | | | | | [phone] | | | +--------+ + + + [...]
--- OUTSIDE RECORDS SUMMARY | ~2019-08-24 | XMS | Encounter Summary ---
Demographics + + + | Address | [address] | | | [place] [address] | + + + | Home Phone [...] | Author | [facility] | | | and [place] | + + + | Organization | [facility] | | | and [place] | + + + | Address | Unknown | + + + | Phone | Unavailable | + + + Support + + + + + | Name | Relationship | Address | Phone | + + + + + | India Tilley | ECON | [address] | | | | | [place], [place] | | | | | [address] | | + + + + + | Yina La | ECON | Unknown | | + + + + + | Yina Peterson | ECON | Unknown | | + + + + + | Leatha Casillas | ECON | Unknown | | + + + + + Care Team Providers + +------+ + | Care Computer Engineering Technician Name | Role | Phone | + +------+ + PCP | Unavailable | + +------+ + Encounter Details +--------+ + + + + | Date | Type | Department | Care Team | Description | +--------+ + + + + | 12/05/ | Hospital | [facility] | Carlos Sandoval | | | 2007 | Encounter | MED CTR XRAY [address] | [place] [address] [facility] | | | | | [place] | [place], [place] | | | | | [place] [address] | [id number] | | | | | [phone] | | | +--------+ + + + [...]
--- OUTSIDE RECORDS SUMMARY | ~2019-08-24 | XMS | Encounter Summary ---
Demographics + + + | Address | [address] | | | [place] [address] | + + + | Home Phone [...] + | Author | [facility] | | | and [place] | + + + | Organization | [facility] | | | and [place] | + + + | Address | Unknown | + + + | Phone | Unavailable | + + + Support + + + + + | Name | Relationship | Address | Phone | + + + + + | India Tilley | ECON | [id number] | | | | | [place], [place] | | | | | [address] | | + + + + + | Yina La | ECON | Unknown | | + + + + + | Yina Peterson | ECON | Unknown | | + + + + + | Leatha aCsillas | ECON | Unknown | | + + + + + Care Team Providers + +------+ + | Care Litigation Attorney Associate Name | Role | Phone | + +------+ + PCP | Unavailable | + +------+ + Encounter Details +--------+ + + + + | Date | Type | Department | Care Team | Description | +--------+ + + + + | 01/15/ | Hospital | [facility] | | | | 2006 - | Encounter | MED CTR CANCER | | | | | | CENTER [facility] [address] | | | | 02/10/ | | [place] | | | | 2006 | | [address] | | | | | | [phone] | | | +--------+ + + + [...]
--- OUTSIDE RECORDS SUMMARY | ~2019-08-24 | XMS | Encounter Summary ---
Demographics + + + | Address | [address] | | | [place] [address] | + + + | Home Phone [...] Author | [facility] | | | and [place] | + + + | Organization | [facility] | | | and [place] | + + + | Address | Unknown | + + + | Phone | Unavailable | + + + Support + + + + + | Name | Relationship | Address | Phone | + + + + + | India Tilley | ECON | [address] | | | | | [place], [place] | | | | | [address] | | + + + + + | Yina La | ECON | Unknown | | + + + + + | Yina Peterson | ECON | Unknown | | + + + + + | Leatha Casillas | ECON | Unknown | | + + + + + Care Team Providers + +------+ + | Care Rug Weaver Name | Role | Phone | [...] | Surgery | kidney | DO [address] | , [address] | | | | | disease, | [place], [place] | [address] | | | | | stage V | [address] | [place], | | | | | ([facility]) | [place], [place] | [place] [address] | | | | | | [address] | Phone: | | | | | | Phone: | [phone] | | | | | | [phone] | Fax: | | | | | | Fax: | [phone] | | | | | | [phone] | | +--------+ + + + + + Encounter Details +--------+ + + + + | Date | Type | Department | Care Team | Description | +--------+ + + + + | 10/06/ | Orders Only | [facility] | Gopi Muñoz | Chronic kidney | | 2018 | | NEPHROLOGY [address] | M, DO [address] | disease, stage V | | | | [address] | [place], [place] [address] | ([facility]) (Primary Dx) | | | | [place] | [place] | | | | | [address] | [address] | | | | | [phone] | | | +--------+ + + + [...] | | | Referral | | | ([facility]) | | + + [...]
--- OUTSIDE RECORDS SUMMARY | ~2019-08-24 | XMS | Encounter Summary ---
Demographics + + + | Address | [address] | | | [place] [address] | + + + | Home Phone [...] Author | [facility] | | | and [place] | + + + | Organization | [facility] | | | and [place] | + + + | Address | Unknown | + + + | Phone | Unavailable | + + + Support + + + + + | Name | Relationship | Address | Phone | + + + + + | India Tilley | ECON | [address] | | | | | [place], [place] | | | | | [address] | | + + + + + | Yina La | ECON | Unknown | | + + + + + | Yina Peterson | ECON | Unknown | | + + + + + | Leatha Casillas | ECON | Unknown | | + + + + + Care Team Providers + +------+ + | Care Guide Excursion Name | Role | Phone | + +------+ + PCP | Unavailable | + +------+ + Encounter Details +--------+ + + + + | Date | Type | Department | Care Team | Description | +--------+ + + + + | 05/16/ | Hospital | [facility] | Patricia, | | | 2007 - | Encounter | MED CTR CANCER | Venkatesh Forte MD [address] | | | | | [place] [address] | [facility] | | | 06/12/ | | [place], [place] | [place] [address] | | | 2007 | | [address] | [phone] | | | | | [phone] | | | +--------+ + + + [...]
--- OUTSIDE RECORDS SUMMARY | ~2019-08-24 | XMS | Encounter Summary ---
Demographics + + + | Address | [address] | | | [place] [address] | + + + | Home Phone [...] | Author | [facility] | | | and [place] | + + + | Organization | [facility] | | | and [place] | + + + | Address | Unknown | + + + | Phone | Unavailable | + + + Support + + + + + | Name | Relationship | Address | Phone | + + + + + | India Tilley | ECON | [address] | | | | | [place], [place] | | | | | [address] | | + + + + + | Yina La | ECON | Unknown | | + + + + + | Yina Peterson | ECON | Unknown | | + + + + + | Leatha Casillas | ECON | Unknown | | + + + + + Care Team Providers + +------+ + | Care Document Management Analyst Name | Role | Phone | [...] | 02/03/ | Office | [facility] | Scott Koroma, | Postop check | | 2019 | Visit | ORTHOPEDIC SURGERY | MD [address] | (Primary Dx) | | | | [address] [facility] | [place] | | | | | [place] | [address] | | | | | [address] | | | | | | [phone] | | | +--------+---------+ + + + [...]
--- OUTSIDE RECORDS SUMMARY | ~2019-08-24 | XMS | Encounter Summary ---
Demographics + + + | Address | [address] | | | [place] [address] | + + + | Home Phone [...] | Author | [facility] | | | and [place] | + + + | Organization | [facility] | | | and [place] | + + + | Address | Unknown | + + + | Phone | Unavailable | + + + Support + + + + + | Name | Relationship | Address | Phone | + + + + + | India Tilley | ECON | [address] | | | | | [place], [place] | | | | | [address] | | + + + + + | Yina La | ECON | Unknown | | + + + + + | Yina Peterson | ECON | Unknown | | + + + + + | Leatha Casillas | ECON | Unknown | | + + + + + Care Team Providers + +------+ + | Care Picture Hanger Name | Role | Phone | + +------+ + PCP | Unavailable | + +------+ + Encounter Details +--------+ + + + + | Date | Type | Department | Care Team | Description | +--------+ + + + + | 11/07/ | Hospital | [facility] | Peyman Wu, | CHR ISCHEMIC HRT DIS | | 2002 | Encounter | MEDICAL CENTER | [address] | NOS | | | | CLINICAL DECISION | [address] | | | | | [address] [facility] | [address] | | | | | [place], [place] | [phone] | | | | | [address] | | | | | | [phone] | | | +--------+ + + + [...]
--- OUTSIDE RECORDS SUMMARY | ~2019-08-24 | XMS | Encounter Summary ---
Demographics + + + | Address | [address] | | | [place] [address] | + + + | Home Phone [...] + + | Author | [facility] | | | and [place] | + + + | Organization | [facility] | | | and [place] | + + + | Address | Unknown | + + + | Phone | Unavailable | + + + Support + + + + + | Name | Relationship | Address | Phone | + + + + + | India Tilley | ECON | [address] | | | | | [place], [place] | | | | | [address] | | + + + + + | Yina La | ECON | Unknown | | + + + + + | Yina Peterson | ECON | Unknown | | + + + + + | Leatha Casillas | ECON | Unknown | | + + + + + Care Team Providers + +------+ + | Care Adhesive Bonding Machine Operator Name | Role | Phone [...] | 02/03/ | Office | [facility] | Scott Koroma, | Postop check | | 2019 | Visit | ORTHOPEDIC SURGERY | MD [address] | (Primary Dx) | | | | [address] [facility] | [place] | | | | | [place] | [address] | | | | | [address] | | | | | | [phone] | | | +--------+---------+ + + + [...]
--- OUTSIDE RECORDS SUMMARY | ~2019-08-24 | XMS | Encounter Summary ---
Demographics + + + | Address | [address] | | | [place] [address] | + + + | Home Phone [...] | Author | [facility] | | | and [place] | + + + | Organization | [facility] | | | and [place] | + + + | Address | Unknown | + + + | Phone | Unavailable | + + + Support + + + + + | Name | Relationship | Address | Phone | + + + + + | India Tilley | ECON | [address] | | | | | [place], [place] | | | | | [address] | | + + + + + | Yina La | ECON | Unknown | | + + + + + | Yina Peterson | ECON | Unknown | | + + + + + | Leatha Casillas | ECON | Unknown | | + + + + + Care Team Providers + +------+ + | Care Ball Maker Name | Role | Phone | [...] | Surgery | kidney | DO [address] | [address] | | | | | disease, | [place], [place] | [address] | | | | | stage V | [address] | [place], | | | | | ([facility]) | [place] | [place] [address] | | | | | | [address] | Phone: | | | | | | Phone: | [phone] | | | | | | [phone] | Fax: | | | | | | Fax: | [phone] | | | | | | [phone] | | +--------+ + + + + + Encounter Details +--------+---------+ + + + | Date | Type | Department | Care Team | Description | +--------+---------+ + + + | 12/30/ | Office | [facility] | Santos Stephenson | Chronic kidney | | 2018 | Visit | SURGERY [address] | MD Kinga, FACS [address] | disease, stage V | | | | [place], [place] | [address] [facility] | (HCC) (Primary Dx) | | | | [address] | [place] [address] | | | | | [phone] | [phone] | | | | | | | [...] Same Day Surgery (corner [address]) at 12:00pm. Your surgery is called AV [...] successful and comfortable surgery. Sign up for [employer] Grants if you want easy access to your medical information online. You can: Review your medications, immunizations, allergies and medical history. View details of your past and upcoming appointments. Sign up for [employer]ants if you want easy access to your medical information online. Only you, your doctor and your health care team are permitted to view the information sent through [employer]. Through Contracts and Grants you can: ? Review your medications, immunizations, [...] different ways you can sign up for Contracts and Grants: ? The first way is to get online at: [email or web address] and sign up directly throug h the website prior to your appointment with us. You can call [phone] ([phone]) if you have any questions or need assistance. ? The second way is through the Contracts and Grants lyudmila which can be accessed with any smart phone. Ju st go to your lyudmila store and look up Trovix. ? The third way is to do [...] ? Francisca Womack PA-C Who is your Supervisor Records Change/Kidney Specialist ? Dr. Muñoz When was the [...] dialysis on Wednesday, Wednesday and Fridays in [place]. She states she has had breast cancer, had a LEFT side mastectomy. CARDIAC: Denies GA, chest pain or tightness. RISK: Never smoker, current 38 year diabetic. Family Hx of diabetes. States mother had kid cedric failure NICO: Patient has previously been diagnosed with sleep apnea. She had a sleep study performe d at [facility] but does not wear a CPAP [...] Placement; Surgeon: Nora Leo MD; Location : [facility] MAIN OR Allergies Allergen Reactions Lisinopril [...] REPORT: PATIENT NAME : Estefani Tilley EQUIPMENT: [employer] Rainbow[employer] with 10-5 mHertz probe. INDICATIONS: Dialysis access [...]
--- OUTSIDE RECORDS SUMMARY | ~2019-08-24 | XMS | Encounter Summary ---
Demographics + + + | Address | [address] | | | [place] [address] | + + + | Home Phone [...] | [facility] | | | and [place] | + + + | Organization | [facility] | | | and [place] | + + + | Address | Unknown | + + + | Phone | Unavailable | + + + Support + + + + + | Name | Relationship | Address | Phone | + + + + + | India Tilley | ECON | [address] | | | | | [place], [place] | | | | | [address] | | + + + + + | Yina La | ECON | Unknown | | + + + + + | Yina Peterson | ECON | Unknown | | + + + + + | Leatha Casillas | ECON | Unknown | | + + + + + Care Team Providers + +------+ + | Care Hot Air Furnace Installer And Repairer Name | Role | Phone | [...] + + | 09/22/ | Telephone | [facility] [place] | Darlin Moseley W, | Nephrology | | 2018 | | NEPHROLOGY [address] | [address] | Appointment | | | | [address] [facility] [address] | [address] [place] | | | | | [place] | [place] [address] | | | | | [address] | [phone] | | | | | [phone] | | | +--------+ + + + [...]
--- OUTSIDE RECORDS SUMMARY | ~2019-08-24 | XMS | Encounter Summary ---
Demographics + + + | Address | [address] | | | [place] [address] | + + + | Home Phone [...] | Author | [facility] | | | and [place] | + + + | Organization | [facility] | | | and [place] | + + + | Address | Unknown | + + + | Phone | Unavailable | + + + Support + + + + + | Name | Relationship | Address | Phone | + + + + + | India Tilley | ECON | [address] | | | | | [place], [place] | | | | | [address] | | + + + + + | Ynia La | ECON | Unknown | | + + + + + | Yina Peterson | ECON | Unknown | | + + + + + | Leatha Casillas | ECON | Unknown | | + + + + + Care Team Providers + +------+ + | Care Biostatistics Manager Name | Role | Phone | + +------+ + PCP | Unavailable | + +------+ + Encounter Details +--------+ + + + + | Date | Type | Department | Care Team | Description | +--------+ + + + + | 11/24/ | Hospital | [facility] | | | | 2006 - | Encounter | MED CTR CANCER | | | | | | CENTER [facility][note 3] [address] | | | | 12/11/ | | [place] | | | | 2006 | | [address] | | | | | | [phone] | | | +--------+ + + + [...]
--- OUTSIDE RECORDS SUMMARY | ~2019-08-24 | XMS | Encounter Summary ---
Demographics + + + | Address | [address] | | | [place] [address] | + + + | Home Phone [...] Author | [facility] | | | and [place] | + + + | Organization | [facility] | | | and [place] | + + + | Address | Unknown | + + + | Phone | Unavailable | + + + Support + + + + + | Name | Relationship | Address | Phone | + + + + + | India Tilley | ECON | [address] | | | | | [place], [place] | | | | | [address] | | + + + + + | Yina La | ECON | Unknown | | + + + + + | Yina Peterson | ECON | Unknown | | + + + + + | Leatha Casillas | ECON | Unknown | | + + + + + Care Team Providers + +------+ + | Care Slurry Control Operator Helper Name | Role | Phone | [...] + + | 02/04/ | Telephone | [facility] | Santos Stephenson | Post Op (dialysis | | 2017 | | SURGERY [address] | MD [place], FACS [address] | catheter fell out. ) | | | | [place], [place] | [address] [facility] | | | | | [address] | [place] [address] | | | | | [phone] | [phone] | | | | | | | [...]
--- OUTSIDE RECORDS SUMMARY | ~2019-08-24 | XMS | Encounter Summary ---
Demographics + + + | Address | [address] | | | [place] [address] | + + + | Home Phone [...] | Author | [facility] | | | and [place] | + + + | Organization | [facility] | | | and [place] | + + + | Address | Unknown | + + + | Phone | Unavailable | + + + Support + + + + + | Name | Relationship | Address | Phone | + + + + + | India Tilley | ECON | [address] | | | | | [place], [place] | | | | | [address] | | + + + + + | Yina La | ECON | Unknown | | + + + + + | Yina Peterson | ECON | Unknown | | + + + + + | Leatha Casillas | ECON | Unknown | | + + + + + Care Team Providers + +------+ + | Care Medical Office Representative Name | Role | Phone | + +------+ + PCP | Unavailable | + +------+ + Encounter Details +--------+ + + + + | Date | Type | Department | Care Team | Description | +--------+ + + + + | 01/15/ | Hospital | [facility] | | | | 2006 - | Encounter | MED CTR CANCER | | | | | | CENTER [facility] [address] | | | | 02/10/ | | [place] | | | | 2006 | | [address] | | | | | | [phone] | | | +--------+ + + + [...]
--- OUTSIDE RECORDS SUMMARY | ~2019-08-24 | XMS | Encounter Summary ---
Demographics + + + | Address | [address] | | | [place] [address] | + + + | Home Phone [...] Author | [facility] | | | and [place] | + + + | Organization | [facility] | | | and [place] | + + + | Address | Unknown | + + + | Phone | Unavailable | + + + Support + + + + + | Name | Relationship | Address | Phone | + + + + + | India Tilley | ECON | [address] | | | | | [place], [place] | | | | | [address] | | + + + + + | Yina La | ECON | Unknown | | + + + + + | Yina Peterson | ECON | Unknown | | + + + + + | Leatha Casillas | ECON | Unknown | | + + + + + Care Team Providers + +------+ + | Care Plant Operator Name | Role | Phone | [...] NEPHROLOGY [address] | M, DO [address] | | | | | [address] | [place], [address] | | | | | [place], [place] | [place] | | | | | [address] | [address] | | | | | [phone] | | | +--------+ + + + [...]
--- OUTSIDE RECORDS SUMMARY | ~2019-08-24 | XMS | Encounter Summary ---
Demographics + + + | Address | [address] | | | [place] [address] | + + + | Home Phone [...] Author | [facility] | | | and [place] | + + + | Organization | [facility] | | | and [place] | + + + | Address | Unknown | + + + | Phone | Unavailable | + + + Support + + + + + | Name | Relationship | Address | Phone | + + + + + | India Tilley | ECON | [address] | | | | | [place], [place] | | | | | [address] | | + + + + + | Yina La | ECON | Unknown | | + + + + + | Yina Peterson | ECON | Unknown | | + + + + + | Leatha Casillas | ECON | Unknown | | + + + + + Care Team Providers + +------+ + | Care Applied Behavior Science Specialist Name | Role | Phone | [...] + + | 01/05/ | Office | [facility] | Scott Koroma, | Closed fracture of | | 2019 | Visit | ORTHOPEDIC SURGERY | MD [address] [facility] | neck of right femur, | | | | [address] | [place] | initial encounter | | | | [place], [place] | [address] | (HCC) (Primary Dx); | | | | [address] | | Right hip pain | | | | [phone] | | | +--------+---------+ + + + [...]
--- OUTSIDE RECORDS SUMMARY | ~2019-08-24 | XMS | Encounter Summary ---
Demographics + + + | Address | [address] | | | [place] [address] | + + + | Home Phone [...] + | Author | [facility] | | | and [place] | + + + | Organization | [facility] | | | and [place] | + + + | Address | Unknown | + + + | Phone | Unavailable | + + + Support + + + + + | Name | Relationship | Address | Phone | + + + + + | India Tilley | ECON | [address] | | | | | [place], [place] | | | | | [address] | | + + + + + | Yina La | ECON | Unknown | | + + + + + | iYna Peterson | ECON | Unknown | | + + + + + | Leatha Casillas | ECON | Unknown | | + + + + + Care Team Providers + +------+ + | Care Fourth Officer Name | Role | Phone | [...] | Services | CKD | [place], | [place] | | | Required | | (chronic | MD Mayelin | [address] | | | | | kidney | [address] | [facility] | | | | | disease) | [facility] | [place], [place] | | | | | stage 5, GFR | [place], [place] | [address] | | | | | less than | [address] | Phone: | | | | | 15 ml/min | Phone: | [phone] | | | | | (HCC) Type | [phone] | Fax: | | | | | 2 DM with | Fax: | [phone] | | | | | CKD stage 5 | [phone] | | | | | | and [...] + + | 11/01/ | Hospital | [facility] | Gopi Muñoz | Hypoglycemia; | | 2018 - | Encounter | [facility] | M, DO [address] | Hypothermia, initial | | | | [address] | [place] | encounter; CKD | | 11/09/ | | [place] [address] | [place], [place] | (chronic kidney | | 2018 | | [phone] | [address] | disease) stage 5, | | | | | | GFR less than 15 | | | | | Rupal Laguna MD | ml/min ([facility]); | | | | | [address] | Essential | | | | | [place], [place] | hypertension; | | | | | [address] | Sepsis, due to | | | | | | unspecified organism | | | | | Nora Leo MD | (HCC); Uremia; | | | | | [address] [facility] | Controlled type 2 | | | | | [place] [address] | diabetes mellitus | | | | | [phone] | with stage 5 chronic | | | | | | kidney disease not | | | | | | on chronic dialysis, | | | | | | with long-term | | | | | | current use of | | | | | | insulin ([facility]); End | | | | | | stage renal disease | | | | | | ([facility]); Type 2 DM | | | | [...] | | | | | ([facility]); Streptococcal | | | | | | bacteremia; Acute | | | | | | hemodialysis | | | | | | encounter ([facility]) | +--------+ + + + + Social [...] might be differ ent from the original. [place] HOSPITALIST DISCHARGE SUMMARY Pt. Name/Age/: Ara [...] insulin glargine 100 units/mL injection (vial) aka: [facility]: Please refer to the H&P for full details and the most recent rounding rounding (progress) n ote. In short this is a 72-year-old woman, history of hypertension, diabetes mellitus type 2 on insulin, chronic kidney disease of stage V, CAD, who presented to [facility] after be ing found down in [...] evaluation. At time of arrival to send [facility], patient was feeling much better and [...] n/a DISPOSITION AND DISCHARGE INSTRUCTIONS: Follow-up Information [facility] On 11/10/2017. Why: 1:00pm Contact information: [address] [place] [id number] Follow up In 3 days. Francisca Womack PA-C In 3 days. Specialty: Internal Medicine Contact information: [address] [place] [address] Hemodialysis In 1 day. Contact information: Appointment at 1:30 PM Condition: Patient being discharged with condition improved and stable Diet: renal, carbohydrate controlled Greater than 30 minutes were spent on discharge and coordination of post-hospital care. Electronically signed by: Mayelin Vega MD, 11/09/2017 11:06 [facility] Portions of this chart may have been created with [employer] voice recognition software. Occasi onal wrong-word or sound-alike substitutions may have occurred due to the inherent mckeon itations of voice recognition software. Please read the chart carefully and recognize, using context, where these substitutions have occurred documented in this encounter Discharge Instructions AttachmentsThe following attachments cannot be sent through Care Everywhere.Balancing Calci um and Phosphorus, Kidney Disease (Grenadian)Hemodialysis (Grenadian)documented in this encounte r Medications at Time [...] + + +---------+ + + | Lancets [facility] | by Does not apply | | 0 | | | | | route. Use 1 [facility] | | | | 8 | | [...] DO - 11/09/2017 6:18 PM PST [facility] [address] [place] [address] PROGRESS NOTE Pt. Name/Age/: Ara Tilley 72 y.o. 1945 Med. Record Number: [id number] Date of admission: 11/01/2017 NEPHROLOGY HPI - [...] 3. Complete 10 days total of AB's. [facility] Nora Headley MD - 11/09/2017 4:24 PM [...] and she agreed. Nikki was raised in [place] and in [place], [place]. She has two brothers and two sisters, and h ad 4 children of her own. Her oldest child, daughter, two months ago. Nikki is gri eving her loss and teared up while talking about her. Her other children live in [facility] and one son has been in [place] for 23 years. She hasn't seen him since he was arr ested and is hopeful she will get to see him next year, as he is schedule to be released at that time. 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 She has at least 4 ye ars post high school education and studied [employer]. In the years prior to assisted, she worked at [employer]. Nikki's mother had chronic kidney disease and [...] and picking up and going to [place] [facility] [place] in [place]. She must plan it out, and that feels antithetical to her nature. Ginger escamilla was present and attentive while she discussed her grief around losing her family member s and her lifestyle, offered supportive sales counselor. Chayo Ramirez RN - 11/09/2017 10:00 [...] 11/08/2017 6:50 PM PSTThis provider, Palliative Care GENERAL OPHTHALMOLOGIST, met briefly with "Nikki" Jose Raul rebecca [...] this note might be different from the [facility] [place] HOSPITALIST PROGRESS NOTE Patient: Ara Tilley : 1945: Age: 72 y.o. MedRec: [id number] Admission date: 11/01/2017 Hospital day # : [...] 100 mg 100 [facility] lomas [facility] 100 mg at 11/07/17 [...] mg/m L 0.25 mg [employer] [facility] Stock Speculator Nora Leo MD [NOV Hold] labetalol (NORMODYNE) [...] HSQ FEN: renal Mayelin Vega 11/08/2017 11:50 [facility] Nora Headley MD - 11/08/2017 10:06 AM [...] be different f rom the original. [facility] [place] HOSPITALIST PROGRESS NOTE Patient: Ara Tilley : 1945: Age: 72 y.o. MedRec: [id number] Admission date: 11/01/2017 Hospital day # : [...] Procedure Component Value Units Date/Time Culture, Blood [[id number]] (Normal) Collected: 11/04/172121 Order Status: Completed Lab Status: Preliminary result Updated: 11/05/17930 Specimen: Blood from Line Culture No growth: Monitored continually by instrument for 5 days Culture, Blood [[id number]] (Normal) Collected: 11/04/172102 Order Status: Completed Lab [...] to determine if permacath needed for long goods drier dialysis -continue ferrlecit and Epogen 3. CAD- no signs of ACS, EKG RBBB, trop 0.03 at OSH -Continue aspirin, lipitor 4. Hypothyroidism -TSH WNL -Continue levothyroxine 5. HTN uncontrolled -Continue Labetalol and furosemide -restart losartan 25 mg daily PPX: HSQ FEN: renal Mayelin Vega 11/07/2017 12:57 [facility] Cordell Palmer MD - 11/07/2017 9:43 AM PSTFormatting of this note might be different from the [facility] NEPHROLOGY progress note Patient: Ara Tilley [...] Moseley MD Electronically signed: 11/07/2017 9:43 [facility] NEPHROLOGY Olegario Keen M D - 11/06/2017 2:15 PM PST [facility] [place] HOSPITALIST PROGRESS NOTE Patient: Ara Tilley : 1945: Age: 72 y.o. MedRec: [id number] Admission date: 11/01/2017 Hospital day # : [...] Procedure Component Value Units Date/Time Culture, Blood [[id number]] (Normal) Collected: 11/04/172121 Order Status: Completed Lab Status: Preliminary result Updated: 11/05/17930 Specimen: Blood from Line Culture No growth: Monitored continually by instrument for 5 days Culture, Blood [[id number]] (Normal) Collected: 11/04/17 2103 Order Status: Completed Lab Status: Preliminary result Updated: 11/05/17 0911 Specimen: Blood from Line Culture No growth: Monitored continually by instrument for 5 days Culture, Blood [[id number]] (Normal) Collected: 11/03/17 1506 Order Status: Completed [...] Oral BID PRN Olegario Peng 11/06/2017 14:15 [facility] Darlin Palmer M D - 11/06/2017 9:10 AM PST [facility] NEPHROLOGY progress note Patient: Ara Tilley [...] Continuous Infusions: Heparin Infusion 200 Units/hr (11/06/17 6607) PRN Meds:acetaminophen, albumin, albuterol, bisacodyl, Hypoglycemia Management [...] Moseley MD Electronically signed: 11/06/2017 9:11 [facility] NEPHROLOGY Olegario Keen M D - 11/05/2017 2:08 PM PST [facility] PROGRESS NOTE Patient: Ara Tilley : 1945: Age: 72 y.o. MedRec: [id number] Admission date: 11/01/2017 Hospital day # : [...] Procedure Component Value Units Date/Time Culture, Blood [[id number]] (Normal) Collected: 11/04/172 Order Status: Completed Lab Status: Preliminary result Updated: 11/05/17 0931 Specimen: Blood from Line Culture No growth: Monitored continually by instrument for 5 days Culture, Blood [[id number]] (Normal) Collected: 11/04/172102 Order Status: Completed Lab Status: Preliminary result Updated: 11/05/17 0911 Specimen: Blood from Line Culture No growth: Monitored continually by instrument for 5 days Culture, Blood [[id number]] (Normal) Collected: 11/03/17 1506 Order Status: Completed Lab Status: Preliminary result Updated: 11/04/17 0311 Specimen: Blood from Peripheral Blood Culture No growth: Monitored continually by instrument for 5 days Culture, Blood [[id number]] (Abnormal) Collected: 11/03/17 0812 Order Status: Completed Lab Status: Preliminary result Updated: 11/05/17 0751 Specimen: Blood from Arm, Left Culture Positive Blood Culture (AA) Staphylococcus coagulase negative Comment: Identification and susceptibility to follow. Probable contaminant Gram Stain Result Gram positive cocci in clusters Comment: 2 of 4 bottles positive Culture, Respiratory, Lower, Smear [[id number]] Collected: 11/03/17 0727 Order Status: Completed Lab [...] Oral BID PRN Olegario Peng 11/05/2017 14:08 [facility] Darlin Palmer M D - 11/05/2017 1:53 PM PST [facility] NEPHROLOGY progress note Patient: Ara Tilley [...] Moseley MD Electronically signed: 11/05/2017 13:53 [facility] NEPHROLOGY Gopi Mckenna , DO - 11/04/2017 6:53 PM PST [facility] [address] [place] [address] PROGRESS NOTE Pt. Name/Age/: Ara Tilley 72 y.o. 1945 Med. Record Number: [id number] Date of admission: 11/01/2017 NEPHROLOGY HPI - [...] to high Inpt case load here at [facility]. 2. probable pyelonephritis?--Day #3 Ceftriaxone, Day #2 [...] for coverage of both organisms, Q 48H. [facility] Queenie Hall RN - 11/04/2017 10:23 AM PSTPatient transferred from ICU into room 307. Oriented to room an d call light. Bed alarm set. Call light in place. Remains on 2L via nasal canula. Makes need s known. Amanda Keen MD - 11/04/2017 7:21 AM PSTFormatting of this note might be different from the origin al. [facility] [place] HOSPITALIST PROGRESS NOTE Patient: Ara Tilley : 1945: Age: 72 y.o. MedRec: [id number] Admission date: 11/01/2017 Hospital day # : [...] 650 mg 650 mg Oral Q4H PRN Ruapl Laguna MD albumin 25% IVPB 12.5 g [...] patch 1 patch Transdermal Daily PRN Rupal aLguna MD mannitol 25% injection 12.5 g 12.5 [...] Procedure Component Value Units Date/Time Culture, Blood [[id number]] (Normal) Collected: 11/03/17 1506 Order Status: Completed Lab Status: Preliminary result Updated: 11/04/17 0311 Specimen: Blood from Peripheral Blood Culture No growth: Monitored continually by instrument for 5 days Culture, Blood [[id number]] (Normal) Collected: 11/03/17 0812 Order Status: Completed Lab Status: Preliminary result Updated: 11/03/17 2041 Specimen: Blood from Arm, Left Culture No growth: Monitored continually by instrument for 5 days Culture, Respiratory, Lower, Smear [[id number]] Collected: 11/03/17 0727 Order Status: Completed Lab Status: Preliminary result Updated: 11/03/17 1028 Specimen: Respiratory from Sputum, expectorated Gram Stain Result 3+ White Blood Cells 2+ Epithelial cells 2+ Gram positive cocci 2+ Gram positive bacilli 1+ Hyphael elements Influenza A and B RNA, NAAT [[id number]] (Normal) Collected: 11/02/17 1050 Order Status: Completed Lab Status: Final result Updated: 11/02/17 1125 Specimen: Respiratory from Nares Influenza A PCR Negative Influenza B PCR Negative Culture, Urine [[id number]] Collected: 11/02/17 0740 Order Status: Completed Lab Status: Preliminary result Updated: 11/03/17 1013 Specimen: Urine Culture >100,000 CFU/ml Lactose Fermenting Gram Negative Bacilli Comment: Identification and susceptibility to follow. Culture, Blood [[id number]] (Normal) Collected: 11/02/17 0024 Order Status: Completed Lab Status: Preliminary result Updated: 11/02/17 1241 Specimen: Blood from Peripheral Blood Culture No growth: Monitored continually by instrument for 5 days Culture, Blood [[id number]] (Abnormal) Collected: 11/02/17 0019 Order Status: Completed [...] 15:14 by Edison Short. Narrative: Culture, MRSA [[id number]] Collected: 11/01/17 2146 Order Status: Completed Lab [...] in chains -Repeat UA (+), urine culture >057315 GNB lactose fermenting -Continue ceftriaxone started 11/02, [...] Q30 Min PRN Olegario Peng 11/04/2017 7:21 [facility] Nick Aguillon, RN - 0 11/04/2017 1:06 AM PSTDialysis treatment started and Arterial pressures running in the -400s , trouble shooting ineffective, arterial and venous lines switched, pressures now -50s. Shama sarabia is running appropriately at this moment, will continue monitoring. Nick Guallpa Gopi Mckenna, DO - 11/03/2017 11:20 AM PST [facility] [address] [place], [place] [id number] PROGRESS NOTE Pt. Name/Age/: Ara Tilley 72 y.o. 1945 Med. Record Number: [id number] Date of admission: 11/01/2017 NEPHROLOGY HPI - [...] anemia. 4. Encourage ambulation to minimize atelectasis. [facility] Olegario Keen MD - 11/03/2017 7:07 AM PST [facility] [place] HOSPITALIST PROGRESS NOTE Patient: Ara Tilley : 1945: Age: 72 y.o. MedRec: [id number] Admission date: 11/01/2017 Hospital day # : [...] PH UA 6.0 5.0 - 8.0 Specific Loman 1.010 1.001 - 1.030 PROTEIN UA 100 [...] Date/Time Influenza A and B RNA, NAAT [[id number]] (Normal) Collected: 11/02/17 1050 Order Status: Completed Lab Status: Final result Updated: 11/02/17 1125 Specimen: Respiratory from Nares Influenza A PCR Negative Influenza B PCR Negative Culture, Urine [[id number]] Collected: 11/02/17 0740 Order Status: Sent Lab Status: In process Updated: 11/02/17 0758 Specimen: Urine Culture, Blood [[id number]] (Normal) Collected: 11/02/17 0024 Order Status: Completed Lab Status: Preliminary result Updated: 11/02/17 1241 Specimen: Blood from Peripheral Blood Culture No growth: Monitored continually by instrument for 5 days Culture, Blood [[id number]] (Abnormal) Collected: 11/02/17 0019 Order Status: Completed Lab Status: Preliminary result Updated: 11/02/17 1515 Specimen: Blood from Peripheral Blood Culture Positive Blood Culture (AA) Gram Stain Result Gram positive cocci in chains Comment: One of four Blood Culture bottles POSITIVE. Critical Result called to and read b ack by Kristen Irving on 11/02/2017 at 15:14 by Edison Short. Narrative: Culture, MRSA [[id number]] Collected: 11/01/17 2146 Order Status: Sent Lab [...] Oral BID PRN Olegario Peng 11/03/2017 7:08 [facility] olph, Ta Restrepo, [facility] - 11/02/2017 3:43 PM PST PHARMACY [...] strength, and directions X Pharmacy list names: 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: Atorvastatin 20mg 1 tab by mouth nightly 1 tab by mouth every morning Calcium- vitamin d 600-400mg 1 tab by mouth twice daily 1 tab by mouth every morning Duloxetine 30mg DR 1 capsule by mouth daily Patient has not started this medication VAN DRIVER HELPER, cortés s not filled at pharmacy [id number] 200mg by mouth twice daily 200mg by mouth every morning labetalol 200mg 1 tab by mouth twice daily Patient has not started this medication VAN DRIVER HELPER, has not filled at pharmacy Best possible VAN DRIVER HELPER medication list after pharmacy review: Prior to [...] performed and electronically signed by Puja Whitman, Manager Of Environmental Services 2017 15:31 Electronically signed by: Ta Ronquillo [facility] 11/02/2017 15:40 Olegario Keen MD - 11/02/2017 7:21 AM PST [facility] [place] HOSPITALIST PROGRESS NOTE Patient: Ara Tilley : 1945: Age: 72 y.o. MedRec: [id number] Admission date: 11/01/2017 Hospital day # : [...] Procedure Component Value Units Date/Time Culture, Blood [[id number]] Collected: 11/02/1723 Order Status: Sent Lab Status: In process Updated: 11/02/1732 Specimen: Blood from Peripheral Blood Culture, Blood [[id number]] Collected: 11/02/1718 Order Status: Sent Lab Status: In process Updated: 11/02/1732 Specimen: Blood from Peripheral Blood Culture, MRSA [[id number]] Collected: 11/01/172145 Order Status: Sent Lab Status: [...] 0.9% Intravenous Continuous Olegario Peng 11/02/2017 7:38 [facility] documented in this e ncounter Plan of [...] | | | | than 15 ml/min ([facility]) | | | | | | Type 2 DM with CKD | | | | | | stage 5 and | | | | | | hypertension ([facility]) | | | | | | Acute hemodialysis | | | | | | encounter ([facility]) | | + + +--------+ + + [...] [address] | [place] | [phone] | | [facility] | | [address] | | | - LABORATORY | | [...] [address] | [place] | [phone] | | [facility] | [...] [address] | [place] | [phone] | | [facility] | | [address] | | | - LABORATORY | | [...] (H) | 7 - 18 mg/dL | [facility] | | | | | | [facility] | | | | | | MEDICAL | | | | | | CENTER - | | | | | | LABORATORY | | + + + + + + | Creatinine | 2.99 (H) | 0.60 - 1.30 | [facility] | | | | | mg/dL | [facility] | | | | | | MEDICAL | | | | | | CENTER - | | | | | | LABORATORY | | + + + + + + | eGFR if not | 15 (L)Comment: | >=60 | [facility] | | | | GLOMERULAR FILTRATION | mL/min/1.73m2 | [facility] | | | [place] | RATE,ESTIMATED | | MEDICAL | | | | mL/min/1.63c1Uodt than | | CENTER - | | [...] | [facility] | [address] | [place] | [phone] | | [facility] | | [address] | | | - LABORATORY | | [...] + | [facility] | [address] | [place] | [phone] | | [facility] | | [address] | | | - LABORATORY | | [...] | | POC | | | [facility] | | | | | | MEDICAL [...] [address] | [place] | [phone] | | [facility] | | [address] | | | - LABORATORY | | [...] Urine | appended report. These | | [facility] | | | | results have [...] [address] | [place] | [phone] | | [facility] | | [address] | | | - LABORATORY | | [...] [address] | [place] | [phone] | | [facility] | | [address] | | | - LABORATORY | | [...] [address] | [place] | [phone] | | [facility] | | [address] | | | - LABORATORY | | [...] + | [facility] | [address] | [place] | [phone] | | [facility] | | [address] | | | - LABORATORY | | [...] mL/min/1.73m2 | [facility] | | | [place] | RATE,ESTIMATED | | MEDICAL | | | | mL/min/1.73k7Toip than | | CENTER - | | [...] | ine Ratio | | | [facility] | | | | | | [...] ST. | [address] | [place], [place] | [phone] | | [facility] | | [address] | | | - LABORATORY | | [...] [address] | [place] | [phone] | | [facility] | | [address] | | | - LABORATORY | | [...] [address] | [place] | [phone] | | [facility] | | [address] | | | - LABORATORY | | [...] + | [facility] | [address] | [place] | [phone] | | [facility] | | [address] | | | - LABORATORY | | [...] [address] | [place] | [phone] | | [facility] | | [address] | | | - LABORATORY | | [...] [address] | [place] | [phone] | | [facility] | | [address] | | | - LABORATORY | | [...] + | [facility] | [address] | [place] | [phone] | | [facility] | | [address] | | | - LABORATORY | | [...] [address] | [place] | [phone] | | [facility] | | [address] | | | - LABORATORY | | [...] [address] | [place] | [phone] | | [facility] | | [address] | | | - LABORATORY | | [...] | | GLOMERULAR FILTRATION | mL/min/1.73m2 | [facility] | | | [place] | RATE,ESTIMATED | | MEDICAL | | | | mL/min/1.71n8Izvq than | | CENTER - | | [...] + | [facility] | [address] | [place] | [phone] | | [facility] | | [address] | | | - LABORATORY | | [...] [address] | [place] | [phone] | | [facility] | | [address] | | | - LABORATORY | | [...] ST. | [address] | [place], [place] | [phone] | | [facility] | | [address] | | | - LABORATORY | | [...] + | [facility] | [address] | [place] | [phone] | | [facility] | | [address] | | | - LABORATORY | | [...] + | [facility] | [address] | [place] | [phone] | | [facility] | | [address] | | | - LABORATORY | | [...] [address] | [place] | [phone] | | [facility] | | [address] | | | - LABORATORY | | [...] [address] | [place] | [phone] | | [facility] | | [address] | | | - LABORATORY | | [...] [address] | [place] | [phone] | | [facility] | | [address] | | | - LABORATORY | | [...] | | | | mg/dL | [facility] | | | | | | MEDICAL | | | | | | CENTER - | | | | | | LABORATORY | | + + + + + + | eGFR if not | 20 (L)Comment: | >=60 | [facility] | | | | GLOMERULAR FILTRATION | mL/min/1.73m2 | [facility] | | | [place] | RATE,ESTIMATED | | MEDICAL | | | | mL/min/1.44k4Estm than | | CENTER - | | [...] + | [facility] | [address] | [place] | [phone] | | [facility] | | [address] | | | - LABORATORY | | [...] ST. | [address] | [place], [place] | [phone] | | [facility] | | [address] | | | - LABORATORY | | [...] + | [facility] | 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 | |Tricuspid Valve | |Nyme-ge-kfqhxpkq tricuspid regurgitation suggestive of a mildly elevated [...] LA Volume: 60.67 ml | | EF Sfrruguvb12% | | | | Left Ventricle | [...] + | [facility] | [address] | [place] | [phone] | | [facility] | | [address] | | | - LABORATORY | | [...] + | [facility] | [address] | [place] | [phone] | | [facility] | | [address] | | | - LABORATORY | | [...] [address] | [place] | [phone] | | [facility] | | [address] | | | - LABORATORY | | [...] [address] | [place] | [phone] | | [facility] | | [address] | | | - LABORATORY | | [...] [address] | [place] | [phone] | | [facility] | | [address] | | | - LABORATORY | | [...] mL/min/1.73m2 | [facility] | | | [place] | RATE,ESTIMATED | | MEDICAL | | | | mL/min/1.66m0Liuu than | | CENTER - | | [...] [address] | [place] | [phone] | | [facility] | | [address] | | | - LABORATORY | | [...] [address] | [place] | [phone] | | [facility] | | [address] | | | - LABORATORY | | [...] + | [facility] | [address] | [place] | [phone] | | [facility] | | [address] | | | - LABORATORY | | [...] | | | incubation. | | [facility] | | | [...] [address] | [place] | [phone] | | [facility] | | [address] | | | - LABORATORY | | [...] [address] | [place] | [phone] | | [facility] | | [address] | | | - LABORATORY | | [...] | [facility] | [address] | [place] | [phone] | | [facility] | | [address] | | | - LABORATORY | | [...] + | [facility] | [address] | [place] | [phone] | | [facility] | | [address] | | | - LABORATORY | | [...] [address] | [place] | [phone] | | [facility] | | [address] | | | - LABORATORY | | [...] + | [facility] | [address] | [place] | [phone] | | [facility] | | [address] | | | - LABORATORY | | [...] [address] | [place] | [phone] | | [facility] | | [address] | | | - LABORATORY | | [...] mL/min/1.73m2 | [facility] | | | [place] | RATE,ESTIMATED | | MEDICAL | | | | mL/min/1.44r2Toou than | | CENTER - | | [...] [address] | [place] | [phone] | | [facility] | | [address] | | | - LABORATORY | | [...] [address] | [place] | [phone] | | [facility] | | [address] | | | - LABORATORY | | [...] | [facility] | [address] | [place] | [phone] | | [facility] | | [address] | | | - LABORATORY | | [...] + + | Performing | Address | City/State/[facility] | Phone Number | | Organization | | | | + + + + + | [facility] | [address] | [place] | [phone] | | [facility] | | [address] | | | - LABORATORY | | [...] [address] | [place] | [phone] | | [facility] | | [address] | | | - LABORATORY | | [...] [address] | [place] | [phone] | | [facility] | | [address] | | | - LABORATORY | | [...] + | [facility] | [address] | [place] | [phone] | | [facility] | | [address] | | | - LABORATORY | | [...] [address] | [place] | [phone] | | [facility] | | [address] | | | - LABORATORY | | [...] + | [facility] | [address] | [place] | [phone] | | [facility] | | [address] | | | - LABORATORY | | [...] [address] | [place] | [phone] | | [facility] | | [address] | | | - LABORATORY | | [...] + | [facility] | [address] | [place] | [phone] | | [facility] | | [address] | | | - LABORATORY | | [...] + | [facility] | [address] | [place] | [phone] | | [facility] | | [address] | | | - LABORATORY | | [...] [address] | [place] | [phone] | | [facility] | | [address] | | | - LABORATORY | | [...] + + | Performed at: 01 - [facility] [address], | REFERENCE LAB | | [place], [place] [id number] Senior Support Engineer: Ernie Lee MD, Phone: | [facility] | | [phone] | | + + + + + + + + | Performing | Address | City/State/Zipcode | Phone Number | | Organization | | | | + + + + + | REFERENCE LAB | [address] | [place] [address] | [phone] | | [facility] | [address] [...] [address] | [place] | [phone] | | [facility] | | [address] | | | - LABORATORY | | [...] [address] | [place] | [phone] | | [facility] | | [address] | | | - LABORATORY | | [...] [facility] | | | | | | [facility] | | | | | | MEDICAL | | | | | | CENTER - | | | | | | LABORATORY | | + + + + + + | RBC | 2.97 (L) | 3.70 - 5.20 | [facility] | | | | | M/uL | [facility] | | | | | | [...] + | [facility] | [address] | [place] | [phone] | | [facility] | | [address] | | | - LABORATORY | | [...] test | | | | | | ([id number]). | | | | + + + + + + + + | Specimen | + + | Blood | + + + + + | Narrative | Performed At | + + + | Performed at: 01 - [facility] [place] [address], | REFERENCE LAB | | [place], [place] [id number] Senior Support Engineer: Ernie Lee MD, Phone: | [facility] | | [phone] | | + + + + + + + + | Performing | Address | City/State/Zipcode | Phone Number | | Organization | | | | + + + + + | RE[facility] | [address] | [place] [address] | [phone] | | [facility] | Drive [...] mL/min/1.73m2 | [facility] | | | [place] | RATE,ESTIMATED | | MEDICAL | | | | mL/min/1.85p5Uewn than | | CENTER - | | [...] [address] | [place] | [phone] | | [facility] | | [address] | | | - LABORATORY | | [...] [address] | [place] | [phone] | | [facility] | | [address] | | | - LABORATORY | | [...] + | [facility] | [address] | [place] | [phone] | | [facility] | | [address] | | | - LABORATORY | | [...] [address] | [place] | [phone] | | [facility] | | [address] | | | - LABORATORY | | [...] + | [facility] | [address] | [place] | [phone] | | [facility] | | [address] | | | - LABORATORY | | [...] [address] | [place] | [phone] | | [facility] | | [address] | | | - LABORATORY | | [...] [address] | [place] | [phone] | | [facility] | | [address] | | | - LABORATORY | | [...] [address] | [place] | [phone] | | [facility] | | [address] | | | - LABORATORY | | [...] | | | POC | | | [facility] | | | | | | [...] + | [facility] | [address] | [place] | [phone] | | [facility] | | [address] | | | - LABORATORY | | [...] | | POC | | | [facility] | | | | | | MEDICAL [...] [address] | [place] | [phone] | | [facility] | | [address] | | | - LABORATORY | | [...] [address] | [place] | [phone] | | [facility] | | [address] | | | - LABORATORY | | [...] [address] | [place] | [phone] | | [facility] | | [address] | | | - LABORATORY | | [...] [address] | [place] | [phone] | | [facility] | | [address] | | | - LABORATORY | | [...] [address] | [place] | [phone] | | [facility] | | [address] | | | - LABORATORY | | [...] [address] | [place] | [phone] | | [facility] | | [address] | | | - LABORATORY | | [...] + | [facility] | [address] | [place] | [phone] | | [facility] | | [address] | | | - LABORATORY | | [...] [address] | [place] | [phone] | | [facility] | | [address] | | | - LABORATORY | | [...] [address] | [place] | [phone] | | [facility] | | [address] | | | - LABORATORY | | [...] | [address] | [place] | [phone] | | [facility] | | [address] | | | - LABORATORY | | [...] + | [facility] | [address] | [place] | [phone] | | [facility] | | [address] | | | - LABORATORY | | [...] mL/min/1.73m2 | [facility] | | | [place] | RATE,ESTIMATED | | MEDICAL | | | | mL/min/1.37w0Huwm than | | CENTER - | | [...] + | [facility] | [address] | [place] | [phone] | | [facility] | | [address] | | | - LABORATORY | | [...] [address] | [place] | [phone] | | [facility] | | [address] | | | - LABORATORY | | [...] - 1.030 | [facility] | | | [place] | | | [facility] | | [...] [address] | [place] | [phone] | | [facility] | | [address] | | | - LABORATORY | | [...] | | | | | | [employer] | | | | | [...] + + | Performing | Address | City/State/[facility] | Phone Number | | Organization | | | | + + + + + | [facility] | [address] | [place] | [phone] | | [facility] | | [address] | | | - LABORATORY | | [...] [address] | [place] | [phone] | | [facility] | | [address] | | | - LABORATORY | | [...] [address] | [place] | [phone] | | [facility] | | [address] | | | - LABORATORY | | [...] [address] | [place] | [phone] | | [facility] | | [address] | | | - LABORATORY | | [...] | [facility] | [address] | [place] | [phone] | | [facility] | | [address] | | | - LABORATORY | | [...] ST. | [address] | [place] | [phone] | | [facility] | | [address] | | | - LABORATORY | | [...] + | [facility] | [address] | [place] | [phone] | | [facility] | | [address] | | | - LABORATORY | | [...] [address] | [place] | [phone] | | [facility] | | [address] | | | - LABORATORY | | [...] | | | | | | [employer] | | | | | [...] + + | Performing | Address | City/State[facility] | Phone Number | | Organization | | | | + + + + + | [facility] | [address] | [place] | [phone] | | [facility] | | [address] | | | - LABORATORY | | [...] At | + + + | | [facility] | | | [facility] | | | [facility] | | | - LABORATORY [...] [address] | [place] | [phone] | | [facility] | | [address] | | | - LABORATORY | | [...] [address] | [place] | [phone] | | [facility] | | [address] | | | - LABORATORY | | [...] mL/min/1.73m2 | [facility] | | | [place] | RATE,ESTIMATED | | MEDICAL | | | | mL/min/1.36w9Awbd than | | CENTER - | | [...] [address] | [place] | [phone] | | [facility] | | [address] | | | - LABORATORY | | [...] [address] | [place] | [phone] | | [facility] | | [address] | | | - LABORATORY | | [...] [address] | [place] | [phone] | | [facility] | | [address] | | | - LABORATORY | | [...] [address] | [place] | [phone] | | [facility] | | [address] | | | - LABORATORY | | [...] for comparison only - no result from [facility]. | [facility] | + + + [...] for comparison only - no result from [facility]. | [facility] | + + + [...] for comparison only - no result from [facility]. 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 If | | [...] | | | | | | use [place] 10/325 if ordered. If | | [...] | | | | | | | 9690-6099 Use NIGHT DOSE for | | | | | | | doses scheduled: HS, 3AM, | | | | | | | Nighttime 7485-0242, | | | | | | + [...] scheduled: AC, | | | NPO, Daytime 1585-2581 Use NIGHT | | | DOSE for doses scheduled: | | | HS, 3AM, Nighttime 2516-5887, | | + +---+ | | | [...] | | | DAILY, First dose on [facility] 11/04/17 | | AM PST [...]
--- OUTSIDE RECORDS SUMMARY | ~2019-08-24 | XMS | Encounter Summary ---
Demographics + + + | Address | [address] | | | [place] [address] | + + + | Home Phone [...] Author | [facility] | | | and [place] | + + + | Organization | [facility] | | | and [place] | + + + | Address | Unknown | + + + | Phone | Unavailable | + + + Support + + + + + | Name | Relationship | Address | Phone | + + + + + | India Campos | ECON | [address] | | | | | [place], [place] | | | | | [address] | | + + + + + | Yina La | ECON | Unknown | | + + + + + | Yina Peterson | ECON | Unknown | | + + + + + | Leatha Casillas | ECON | Unknown | | + + + + + Care Team Providers + +------+ + | Care Custodian Supervisor Name | Role | Phone | [...] renal | [address] | [address] | | | | | disease) on | [facility] | [place], | | | | | dialysis | [place], [place] | [place] [address] | | | | | ([facility]) | [address] | Phone: | | | | | | Phone: | [phone] | | | | | | [phone] | Fax: | | | | | | Fax: | [phone] | | | | | | [phone] | | +--------+--------+ + + + + [...] | | | | dialysis | [place] | [place] | | | | | ([facility]) | [address] | [address] | | | | | Essential | Phone: | Phone: | | | | | hypertension | [phone] | [phone] | | | | | Type 2 | Fax: | Fax: | | | | | diabetes | [phone] | [phone] | | | | | mellitus | [...] | ([facility]) | | | +--------+ + [...] | | | | | dialysis | [facility] [place] | [place] | | | | | ([facility]) | [address] | [address] | | | | | Essential | Phone: | Phone: | | | | | hypertension | [phone] | [phone] | | | | | Type 2 | Fax: | Fax: | | | | | diabetes | [phone] | [phone] | | | | | mellitus | [...] | ([facility]) | | | +--------+ + [...] + + | 05/20/ | Hospital | [facility] | Mirza Retana | Hypoxia; Pulmonary | | 2019 - | Encounter | [facility] | MD Coy [address] | edema with | | | | [address] [place] | [address] [place] | congestive heart | | 05/25/ | | [place] [address] | [place] [address] | failure, NYHA class | | 2019 | | [phone] | [phone] | 4 (HCC); ESRD (end | | | | | | stage renal disease) | | | | | Nora Christina MD | on dialysis ([facility]); | | | | | [address] | Hypertensive | | | | | [place], [place] | urgency, malignant; | | | | | [address] | Anemia in chronic | | | | | | kidney disease, on | | | | | | chronic dialysis | | | | | | ([facility]); Essential | | | | | | hypertension; | | | | | | Osteomyelitis of | | | | | | thoracic region | | | | | | ([facility]); Type 2 | [...] Christina MD - 05/25/2019 11:24 AM PDT [facility] HOSPITALIST DISCHARGE SUMMARY Pt. 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 S/p thoracentesis wit h 1300cc fluid removed, studies c/w transudative effusion. Cytology negative for malignant c ells. No growth on culture thus far. Patient is on room air. Of note, recent echo in March sh owed normal EF. 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 SBP 200s on a rrival here. Blood pressure improved after HD, resumption of home medications. Amlodipine an d losartan also added, Nephrology will CTM as outpatient. #Acute metabolic encephalopathy Possibly 2/2 medication as patient received 1mg Ativan at OSH DISTRIBUTION SYSTEMS SERVICEPERSON. At baseline currently. #Recent osteomyelitis Patient admitted [...] Nephrology Why: Nephrology follow up Contact information: [address] [place] [address] Condition: stable Diet: renal, cc Greater than 30 minutes were spent on discharge and coordination of post-hospital care. Electronically signed by: Nora Christina MD, 05/25/2019 11:24 Merged with [facility] documented in this enco unter Discharge [...] will likely include a biopsy in the [facility] down the line. Nora Christina MD [...] of Anemia, Arthritis, Back pain, Breast cancer ([facility]), Cancer ([facility]), Diabetes (HCC), Heart disease, Hemodialysis patient ([facility]), History of blood clots, Hypercholesteremia, Hypertensio n, Hypothyroidism, Renal failure, Seasonal allergies, and Stroke (cerebrum) ([facility]). . Risk fa ctors for [...] Culture, Body Fluid, Sterile, Smear, with Anaerobes [[id number]] Collected: 05/22/19 150 Order Status: Sent Lab Status: In process Updated: 05/22/19 151 Specimen: Body Fluid from Pleural Fluid, Left Narrative: The following orders were created for panel order Culture, Body Fluid, Sterile, Smear, wit h Anaerobes. Procedure Abnormality Status --------- ------ Culture, Body Fluid, Aerobe[[id number]] Preliminary result Culture, Body Fluid, Bre...[[id number]] In process Please view results for these tests on the individual orders. Culture, Fungus, Smear [[id number]] Collected: 05/22/19 150 Order Status: Sent Lab Status: In process Updated: 05/22/19 1510 Specimen: Body Fluid from Pleural Fluid, Left Culture, Body Fluid, Aerobe [[id number]] Collected: 05/22/19 150 Order Status: Completed Lab Status: Preliminary result Updated: 05/24/19 1038 Specimen: Body Fluid from Pleural Fluid, Left Culture No growth to date Gram Stain Result 4+ White Blood Cells No organisms seen Culture, Body Fluid, Anaerobe [[id number]] Collected: 05/22/19 1509 Order Status: Resulted Lab Status: In process Updated: 05/22/19 1510 Specimen: Body Fluid from Pleural Fluid, Left Culture, MRSA [[id number]] Collected: 05/20/192021 Order Status: Completed Lab Status: Final result Updated: 05/22/19 0753 Specimen: Tissue from Nares Culture Negative for MRSA by chromogenic agar method. 2+ Coagulase positive Staphylococcus Culture, Blood, 2nd Specimen [[id number]] Collected: 05/18/19 1548 Order Status: Completed Lab Status: Final result Updated: 05/24/19545 RESULT NO GROWTH 6 DAYS RESULT Testing performed at [facility];[address] [place] [address];[place] [address] Comment: Testing performed at [facility], [address] [place] [address] Culture, Blood [[id number]] Collected: 05/18/19 1508 Order Status: Completed Lab Status: Final result Updated: 05/24/19545 Specimen: Blood from Antecubital, Right RESULT NO GROWTH 6 DAYS RESULT Testing performed at [facility];[address] [place] [address];[place] [address] Comment: Testing performed at [facility], [address] [place] [address], [place] [address] Culture, Blood [[id number]] Collected: 05/18/19 1447 Order Status: Canceled Lab [...] htn Prior to admission dialysis schedule: [facility] Vancomycin Dosing in HD patients: Loading [...] case with his previous ID Chemical Dependency Attendant, Dr. Nick Miller MD . He recommends [...] Bx's here. Therefore, shai kearney confer with [facility] IR, outpt. She was agreeable to staying one more nite for HD and clarif y AB regimen. Vanc. /Cefepime were given, IV, during discussion, after reviewing MRI report but before the phone conversation with Dr. Jung. BP control is better. Her Mental status is very clear. Also had HD x 5 hrs, 2K+, 35 HCO3 a nd tolerated well. [facility] Joo Rodriguez, Bandmill Operator - 05/24/2019 3:46 PM PDT VANCOMYCIN PER [...] Culture, Body Fluid, Sterile, Smear, with Anaerobes [[id number]] Collected: 05/22/19 150 Order Status: Sent Lab Status: In process Updated: 05/22/191512 Specimen: Body Fluid from Pleural Fluid, Left Narrative: The following orders were created for panel order Culture, Body Fluid, Sterile, Smear, wit h Anaerobes. Procedure Abnormality Status --------- ------ Culture, Body Fluid, Aerobe[[id number]] Preliminary result Culture, Body Fluid, Bre...[[id number]] In process Please view results for these tests on the individual orders. Culture, Fungus, Smear [[id number]] Collected: 05/22/19 150 Order Status: Sent Lab Status: In process Updated: 05/22/19 151 Specimen: Body Fluid from Pleural Fluid, Left Culture, Body Fluid, Aerobe [[id number]] Collected: 05/22/19 150 Order Status: Completed Lab Status: Preliminary result Updated: 05/24/19 1038 Specimen: Body Fluid from Pleural Fluid, Left Culture No growth to date Gram Stain Result 4+ White Blood Cells No organisms seen Culture, Body Fluid, Anaerobe [[id number]] Collected: 05/22/19 150 Order Status: Resulted Lab Status: In process Updated: 05/22/19 151 Specimen: Body Fluid from Pleural Fluid, Left Culture, MRSA [[id number]] Collected: 05/20/192021 Order Status: Completed Lab Status: Final result Updated: 05/22/19 0753 Specimen: Tissue from Nares Culture Negative for MRSA by chromogenic agar method. 2+ Coagulase positive Staphylococcus Culture, Blood, 2nd Specimen [[id number]] Collected: 05/18/19 1548 Order Status: Completed Lab Status: Final result Updated: 05/24/19545 RESULT NO GROWTH 6 DAYS RESULT Testing performed at [facility];[address] [place] [address];[place] [address] Comment: Testing performed at [facility], [address] [place] [address], [place] [address] Culture, Blood [[id number]] Collected: 05/18/19 1508 Order Status: Completed Lab Status: Final result Updated: 05/24/19545 Specimen: Blood from Antecubital, Right RESULT NO GROWTH 6 DAYS RESULT Testing performed at [facility];[address] [place] [address];[place] [address] Comment: Testing performed at [facility], [address] [place] [address], [place] [address] Culture, Blood [[id number]] Collected: 05/18/19 1447 Order Status: Canceled Lab [...] elevated Prior to admission dialysis schedule: [facility] Vancomycin Dosing in HD patients: Loading [...] Monitoring Protocol Electronically signed by: Joo Bo, Bandmill Operator 05/24/2019 15:46Electroni terri signed by Joo Bo, Bandmill Operator at 05/24/2019 4:49 PM Kwame Guerin MD - 05/24/2019 11:04 AM PDTFormatting of this note might be different from the origin al. [facility] [place] HOSPITALIST PROGRESS NOTE Patient: Ara Campos : 1945: Age: 74 y.o. MedRec: [id number] Admission date: 05/20/2019 Hospital day # : [...] as patient received 1mg Ativan at [facility] DISTRIBUTION SYSTEMS SERVICEPERSON. At baseline currently. #Recent osteomyelitis Patient admitted with T11-12 osteomyelitis and completed 6 weeks vanc/cefepime. Rep eat MRI again redemonstrated possible osteomyelitis - vanc and cefepime have been resumed, Deepa Muñoz is discussing case with ID. #Diabetes Blood sugars at goal. CCM. Patient is again very upset about [facility] and is eating little to no food [...] Culture, Body Fluid, Sterile, Smear, with Anaerobes [[id number]] Collected: 05/22/19 150 Order Status: Sent Lab Status: In process Updated: 05/22/191512 Specimen: Body Fluid from Pleural Fluid, Left Narrative: The following orders were created for panel order Culture, Body Fluid, Sterile, Smear, wit h Anaerobes. Procedure Abnormality Status --------- ------ Culture, Body Fluid, Aerobe[[id number]] Preliminary result Culture, Body Fluid, Bre...[[id number]] In process Please view results for these tests on the individual orders. Culture, Fungus, Smear [[id number]] Collected: 05/22/19 150 Order Status: Sent Lab Status: In process Updated: 05/22/191509 Specimen: Body Fluid from Pleural Fluid, Left Culture, Body Fluid, Aerobe [[id number]] Collected: 05/22/19 1509 Order Status: Completed Lab Status: Preliminary result Updated: 05/24/19 1038 Specimen: Body Fluid from Pleural Fluid, Left Culture No growth to date Gram Stain Result 4+ White Blood Cells No organisms seen Culture, Body Fluid, Anaerobe [[id number]] Collected: 05/22/19 1509 Order Status: Resulted Lab [...] space. Mild anterior paravertebral soft tissue ed asrah, most notable right of midline, anterior to [...] rate 6L/min Nora Christina MD 05/24/2019 11:04 [facility] Michelle Solorzano Phar mD - [...] Tobacco & Alcohol use/frequency: ? Recreational substances: Scuyfthfn-zxpusbh-hirf asked how much or how often patient sta rich "I smoke as much as I want" Other: No changes to DISTRIBUTION SYSTEMS SERVICEPERSON list, due to the fact that patient was very non compliant. She either di d not want to take her medications, or she stated that she did not know if she was taking th em. She did not want to do the interview. Best possible DISTRIBUTION SYSTEMS SERVICEPERSON medication list after pharmacy review: Medication review performed and electronically signed by Kerry Jordan, Generator Switchboard Operator 05/23/2019 16:20 Reviewed by Michelle Ochoa, PharmD 05/23/2019 18:26 Nora Guerin MD - 05/23/2019 3:20 PM PDT [place], [place] HOSPITALIST PROGRESS NOTE Patient: Ara Campos : 1945: Age: 74 y.o. MedRec: [id number] Admission date: 05/20/2019 Hospital day # : [...] as patient received 1mg Ativan at [facility]SH DISTRIBUTION SYSTEMS SERVICEPERSON. At baseline currently. #Recent osteomyelitis Patient admitted [...] Culture, Body Fluid, Sterile, Smear, with Anaerobes [[id number]] Collected: 05/22/191508 Order Status: Sent Lab Status: In process Updated: 05/22/191512 Specimen: Body Fluid from Pleural Fluid, Left Narrative: The following orders were created for panel order Culture, Body Fluid, Sterile, Smear, wit h Anaerobes. Procedure Abnormality Status --------- ------ Culture, Body Fluid, Aerobe[[id number]] Preliminary result Culture, Body Fluid, Bre...[[id number]] In process Please view results for these tests on the individual orders. Culture, Fungus, Smear [[id number]] Collected: 05/22/191508 Order Status: Sent Lab Status: In process Updated: 05/22/191509 Specimen: Body Fluid from Pleural Fluid, Left Culture, Body Fluid, Aerobe [[id number]] Collected: 05/22/191508 Order Status: Completed Lab Status: Preliminary result Updated: 05/23/19902 Specimen: Body Fluid from Pleural Fluid, Left Culture No growth to date Gram Stain Result 4+ White Blood Cells No organisms seen Culture, Body Fluid, Anaerobe [[id number]] Collected: 05/22/191508 Order Status: Resulted Lab Status: In process Updated: 09/09/19 1510 Specimen: Body Fluid from Pleural Fluid, Left Culture, MRSA [[id number]] Collected: 05/20/192021 Order Status: Completed Lab Status: Final result Updated: 05/22/19 0752 Specimen: Tissue from Nares Culture Negative for [...] rate 0.5L/min Nora Christina MD 05/23/2019 15:20 [facility] documented in this enco unter [...] | | | | | | dialysis ([facility]) | | | | [...] | | | | insulin ([facility]) | | + + +--------+ + + | Ambulatory referral | Outpatient | Routin | ESRD (end stage | Ordered: 05/25/2019 | | to Occupational | Referral | e | renal disease) on | | | Therapy | | | dialysis ([facility]) | | | | [...] + | [facility] | [address] | [place] | [phone] | | [facility] | | [address] | | | - LABORATORY | | [...] | | | POC | | | [facility] | | | | | | MEDICAL [...] + | [facility] | [address] | [place] | [phone] | | [facility] | | [address] | | | - LABORATORY | | [...] not | 11 (L)Comment: | >=60 | [facility] | | | | GLOMERULAR FILTR[facility] | mL/min/1.73m2 | [facility] | | | [place] | RATE,ESTIMATED | | MEDICAL | | | | mL/min/1.51l9Rckz than | | CENTER - | | [...] + | [facility] | [address] | [place] | [phone] | | [facility] | | [address] | | | - LABORATORY | | [...] + | [facility] | [address] | [place] | [phone] | | [facility] | | [address] | | | - LABORATORY | | [...] [address] | [place] | [phone] | | [facility] | | [address] | | | - LABORATORY | | [...] ST. | [address] | [place], [place] | [phone] | | [facility] | | [address] | | | - LABORATORY | | [...] + | [facility] | [address] | [place] | [phone] | | [facility] | | [address] | | | - LABORATORY | | [...] (H) | 9 - 23 mg/dL | [facility] | | | | | | ST. [...] | | MEDICAL | | | | mL/min/1.86v2Tber than | | CENTER - | | [...] + | [facility] | [address] | [place] | [phone] | | [facility] | | [address] | | | - LABORATORY | | [...] [address] | [place] | [phone] | | [facility] | | [address] | | | - LABORATORY | | [...] [address] | [place] | [phone] | | [facility] | | [address] | | | - LABORATORY | | [...] [address] | [place] | [phone] | | [facility] | | [address] | | | - LABORATORY | | [...] [address] | [place] | [phone] | | [facility] | | [address] | | | - LABORATORY | | [...] + | [facility] | [address] | [place] | [phone] | | [facility] | | [address] | | | - LABORATORY | | [...] | | MEDICAL | | | | mL/min/1.14a1Jhre than | | CENTER - | | [...] + | [facility] | [address] | [place] | [phone] | | [facility] | | [address] | | | - LABORATORY | | [...] | nRBC | | K/uL | [facility] | | | | | [...] [address] | [place] | [phone] | | [facility] | | [address] | | | - LABORATORY | | [...] [address] | [place] | [phone] | | [facility] | | [address] | | | - LABORATORY | | [...] ST. | [address] | [place] | [phone] | | [facility] | | [address] | | | - LABORATORY | | [...] [address] | [place] | [phone] | | [facility] | | [address] | | | - LABORATORY | | [...] Pako Evans, | REFERENCE LAB | | [place], [place] [id number] Compliance Engineer: Violette Mcconnell MD, Phone: | [facility] | | [phone] | | + + + + + + + + | Performing | Address | City/State/Zipcode | Phone Number | | Organization | | | | + + + + + | REFERENCE LAB | [address] | [place] [address] | [phone] | | [facility] | Drive [...] + + | Performed at: [address] [place] [address], | REFERENCE LAB | | [place], [place] [address] Compliance Engineer: Ernie Lee MD, Phone: | [facility] | | [phone] | | + + + + + + + + | Performing | Address | City/State/Zipcode | Phone Number | | Organization | | | | + + + + + | REFERENCE LAB | [address] | [place] [address] | [phone] | | [facility] | Drive [...] ST. | [address] | [place], [place] | [phone] | | [facility] | | [address] | | | - LABORATORY | | [...] [address] | [place] | [phone] | | [facility] | | [address] | | | - LABORATORY | | [...] | + + + | Performed at: [place] [address], | REFERENCE LAB | | [place], [place] [id number] Compliance Engineer: Ernie Lee MD, Phone: | [facility] | | [phone] Performed at: [address] | | | [place] [id number] Compliance Engineer: Violette Mcconnell MD, | | | Phone: [phone] | | + + + + + + + + | Performing | Address | City/State/Zipcode | Phone Number | | Organization | | | | + + + + + | REFERENCE LAB | [address] | [place] [address] | [phone] | | [facility] | [facility] | | | + + + + [...] + | [facility] | [address] | [place], [place] | [phone] | | [facility] | | [address] | | | - LABORATORY | | [address] | [place] | [phone] | | [facility] | | [address] | | | - LABORATORY | | [...] + | [facility] | [address] | [place] | [phone] | | [facility] | | [address] | | | - LABORATORY | | [...] | | | POC | | | [facility] | | | | | | MEDICAL [...] + | [facility] | [address] | [place] | [phone] | | [facility] | | [address] | | | - LABORATORY | | [...] | | MEDICAL | | | | mL/min/1.73j0Ftlq than | | CENTER - | | [...] + | [facility] | [address] | [place] | [phone] | | [facility] | | [address] | | | - LABORATORY | | [...] | nRBC | | K/uL | [facility] | | | | | [...] [address] | [place] | [phone] | | [facility] | | [address] | | | - LABORATORY | | [...] [address] | [place] | [phone] | | [facility] | | [address] | | | - LABORATORY | | [...] [address] | [place] | [phone] | | [facility] | | [address] | | | - LABORATORY | | [...] ST. | [address] | [place], [place] | [phone] | | [facility] | | [address] | | | - LABORATORY | | [...] [address] | [place] | [phone] | | [facility] | | [address] | | | - LABORATORY | | [...] + | [facility] | [address] | [place] | [phone] | | [facility] | | [address] | | | - LABORATORY | | [...] [address] | [place] | [phone] | | [facility] | | [address] | | | - LABORATORY | | [...] | | | FILTRATION | mL/min/1.73m2 | [facility] | | | [place] | RATE,ESTIMATED | | MEDICAL | | | | mL/min/1.53o3Btfl than | | CENTER - | | [...] [address] | [place] | [phone] | | [facility] | | [address] | | | - LABORATORY | | [...] + | [facility] | [address] | [place] | [phone] | | [facility] | | [address] | | | - LABORATORY | | [...] [address] | [place] | [phone] | | [facility] | | [address] | | | - LABORATORY | | [...] + | [facility] | [address] | [place] | [phone] | | [facility] | | [address] | | | - LABORATORY | | [...] ST. | [address] | [place] | [phone] | | [facility] | | [address] | | | - [...] | this study were reported by the [facility] radiologist on | | | May [...] PHYSICIAN: Gopi Muñoz MD PATIENT NAME: | [place] PATHOLOGY | | ARA CAMPOS GENDER: Mami [...] preparation was | | | performed by [facility] [address] [place] [address] | | | [place] [address] and [place] [address] [facility] | | | [place] [address]. Professional interpretation was performed | | | by [employer] - [facility] - [address] [facility] | | | [place] [address] (Coke Wheeler: Alen Simpson, | | | .; IA#:[id number]).8 Diagnostician: Darcie López M.S., | | | CT(ASCP), [facility] Highway Engineering Teacher Diagnostician: Alen Kearney | | | Calvin [...] ST. | [address] | [place], [place] | [phone] | | [facility] | | [address] | | | - LABORATORY | | [...] + | [facility] | [address] | [place] | [phone] | | [facility] | | [address] | | | - LABORATORY | | [...] [address] | [place] | [phone] | | [facility] | | [address] | | | - LABORATORY | | [...] + | [facility] | [address] | [place] | [phone] | | [facility] | | [address] | | | - LABORATORY | | [...] | | | | uIU/mL | [facility] | | | | | [...] [address] | [place] | [phone] | | [facility] | | [address] | | | - LABORATORY | | [...] + | [facility] | [address] | [place] | | | [facility] | | [address] | | | - BLOOD BANK | [...] | | | | | | [employer] | | | | | [...] + | [facility] | [address] | [place], [place] | [phone] | | [facility] | | [address] | | | - LABORATORY | | [...] | Critical Result called | | Marianela [facility] | | | | to [...] [address] | [place] | [phone] | | [facility] | | [address] | | | - LABORATORY | | [...] + | [facility] | [address] | [place] | [phone] | | [facility] | | [address] | | | - LABORATORY | | [...] [address] | [place] | [phone] | | [facility] | | [address] | | | - LABORATORY | | [...] [address] | [place] | [phone] | | [facility] | | [address] | | | - LABORATORY | | [...] (H) | 9 - 23 mg/dL | [facility] | | | | | | [facility] | | [facility] | [facility] | | | | | | CENTER - | | | | | | LABORATORY | | + + + + + + | Creatinine | 7.11 (H) | 0.55 - 1.02 | [facility] | | | | | mg/dL | [facility] | | | | | | MEDICAL | | | | | | CENTER - | | | | | | LABORATORY | | + + + + + + | eGFR if not | 6 (L)Comment: GLOMERULAR | >=60 | [facility] | | | | FILTRATION | mL/min/1.73m2 | [facility] | | | TOGOLESE | RATE,ESTIMATED | | MEDICAL | | | | mL/min/1.52a1Mtto than | | CENTER - | | [...] + | [facility] | [address] | [place] | [phone] | | [facility] | | [address] | | | - LABORATORY | | [...] [address] | [place] | [phone] | | [facility] | | [address] | | | - [...] [address] | [place] | [phone] | | [facility] | | [address] | | | - LABORATORY | | [...] | | | 50 mg, Oral, ONCE, [place] 05/21/19 at | | 19 7:55 | [...] | | | | 60 Minutes, ONCE, [facility] 05/25/19 at | | | | | | | 0400, For 1 dose, Activate system | | | | | | | and mix before use., | | | | | | | Indications: Osteomyelitis | | | | | | + +---------+ +--------+-------+---+ +---+---+ | | | +---+---+ documented in this encounter
--- OUTSIDE RECORDS SUMMARY | ~2019-08-24 | XMS | Encounter Summary ---
Demographics + + + | Address | [address] | | | [place] [address] | + + + | Home Phone [...] Author | [facility] | | | and [place] | + + + | Organization | [facility] | | | and [place] | + + + | Address | Unknown | + + + | Phone | Unavailable | + + + Support + + + + + | Name | Relationship | Address | Phone | + + + + + | India Tilley | ECON | [address] | | | | | [place], [place] | | | | | [address] | | + + + + + | Yina La | ECON | Unknown | | + + + + + | Yina Peterson | ECON | Unknown | | + + + + + | Leatha Casillas | ECON | Unknown | | + + + + + Care Team Providers + +------+ + | Care General Ledger Bookkeeper Name | Role | Phone | + [...] NEPHROLOGY [address] | M, DO [address] | | | | | [address] | [place] | | | | | [place], [place] | [place] | | | | | [address] | [address] | | | | | [phone] | | | +--------+ + + + [...]
--- OUTSIDE RECORDS SUMMARY | ~2019-08-24 | XMS | Encounter Summary ---
Demographics + + + | Address | [address] | | | [place] [address] | + + + | Home Phone [...] + | Author | [facility] | | | and [place] | + + + | Organization | [facility] | | | and [place] | + + + | Address | Unknown | + + + | Phone | Unavailable | + + + Support + + + + + | Name | Relationship | Address | Phone | + + + + + | India Tilley | ECON | [address] | | | | | [place], [place] | | | | | [address] | | + + + + + | Yina La | ECON | Unknown | | + + + + + | Yina Peterson | ECON | Unknown | | + + + + + | Leatha Casillas | ECON | Unknown | | + + + + + Care Team Providers + +------+ + | Care Drilling Foreman Name | Role | Phone | + +------+ + PCP | Unavailable | + +------+ + Encounter Details +--------+ + + + + | Date | Type | Department | Care Team | Description | +--------+ + + + + | 11/18/ | Hospital | [facility] | Patricia, | | | 2007 - | Encounter | MED CTR CANCER | Venkatesh Forte MD [address] | | | | | [facility] [address] | [facility] | | | 12/11/ | | [place] | [place] [address] | | | 2007 | | [address] | [phone] | | | | | [phone] | | | +--------+ + + + [...]
--- OUTSIDE RECORDS SUMMARY | ~2019-08-24 | XMS | Encounter Summary ---
Demographics + + + | Address | [address] | | | [place] [address] | + + + | Home Phone [...] | Author | [facility] | | | and [place] | + + + | Organization | [facility] | | | and [place] | + + + | Address | Unknown | + + + | Phone | Unavailable | + + + Support + + + + + | Name | Relationship | Address | Phone | + + + + + | India Tilley | ECON | [address] | | | | | [place], [place] | | | | | [address] | | + + + + + | Yina La | ECON | Unknown | | + + + + + | Yina Peterson | ECON | Unknown | | + + + + + | Leatha Casillas | ECON | Unknown | | + + + + + Care Team Providers + +------+ + | Care Flash Designer Name | Role | Phone | [...] | Surgery | kidney | DO [address] | [address] | | | | | disease, | [place], [place] | [address] | | | | | stage V | [address] [place] | [place], | | | | | ([facility]) | [place] | [place] [address] | | | | | | [address] | Phone: | | | | | | Phone: | [phone] | | | | | | [phone] | Fax: | | | | | | Fax: | [phone] | | | | | | [phone] | | +--------+ + + + + + Encounter Details +--------+---------+ + + + | Date | Type | Department | Care Team | Description | +--------+---------+ + + + | 03/10/ | Office | [facility] | Santos Stephenson | Chronic kidney | | 2018 | Visit | SURGERY [address] | MD Kinga, FACS [address] | disease, stage V | | | | [place], [place] | [address] [facility] | (HCC) (Primary Dx); | | | | [address] | [facility] [place] [address] | Post-operative state | | | | [phone] | [phone] | | | | | | | [...] She has been going to dialysis in [place], [place] , states things are going well. [...] REPORT: PATIENT NAME : Estefani Tilley EQUIPMENT: Mlog-Richmediao with 10-5 mHertz probe. INDICATIONS: S/P Right [...] RIGHT IJ catheter. Patient to follow with carbider and primary care. I will be available [...]
--- OUTSIDE RECORDS SUMMARY | ~2019-08-24 | XMS | Encounter Summary ---
Demographics + + + | Address | [address] | | | [place] [address] | + + + | Home Phone [...] | Author | [facility] | | | and [place] | + + + | Organization | [facility] | | | and [place] | + + + | Address | Unknown | + + + | Phone | Unavailable | + + + Support + + + + + | Name | Relationship | Address | Phone | + + + + + | India Tilley | ECON | [address] | | | | | [place], [place] | | | | | [address] | | + + + + + | Yina La | ECON | Unknown | | + + + + + | Yina Peterson | ECON | Unknown | | + + + + + | Leatha Casillas | ECON | Unknown | | + + + + + Care Team Providers + +------+ + | Care Edge Runner Name | Role | Phone | + +------+ + PCP | Unavailable | + +------+ + Encounter Details +--------+ + + + + | Date | Type | Department | Care Team | Description | +--------+ + + + + | 01/05/ | Hospital | [facility] | Scott Koroma, | Closed fracture of | | 2018 | Encounter | MED CTR DERICK XRAY | MD Nash SEPULVEDA | neck of right femur, | | | | [address] [place] | [place], [place] | initial encounter | | | | [place], [place] | [address] | ([facility]); Right hip | | | | [address] | | pain | | | | [phone] | | | +--------+ + + + [...] | | | | encounter ([facility]) | | | | | [...]
--- OUTSIDE RECORDS SUMMARY | ~2019-08-24 | XMS | Encounter Summary ---
Demographics + + + | Address | [address] | | | [place] [address] | + + + | Home Phone [...] | Author | [facility] | | | and [place] | + + + | Organization | [facility] | | | and [place] | + + + | Address | Unknown | + + + | Phone | Unavailable | + + + Support + + + + + | Name | Relationship | Address | Phone | + + + + + | India Tilley | ECON | [address] | | | | | [place], [place] | | | | | [address] | | + + + + + | Yina La | ECON | Unknown | | + + + + + | Yina Peterson | ECON | Unknown | | + + + + + | Leatha Casillas | ECON | Unknown | | + + + + + Care Team Providers + +------+ + | Care Beamer Helper Name | Role | Phone | [...] | stage renal | MD Phone: | [address] [place] [address] | | | | | disease) | | [place] | | | | | ([facility]) | | [address] | | | | | Procedures | Fax: | [place] | | | | | CT OFFICE | | [address] Phone: | | | | | OUTPATIENT | | [phone] | | | | | VISIT 25 | | Fax: | | | | | MINUTES | | [phone] | +--------+--------+ + + + + Encounter Details +--------+ + + + + | Date | Type | Department | Care Team | Description | +--------+ + + + + | 05/11/ | Off-Site | [facility] | Gopi Muñoz | ESRD (end stage | | 2019 | Visit | NEPHROLOGY [address] | M, DO [address] | renal disease) on | | | | [address] | [place], [address] | dialysis (HCC) | | | | [place] | [place] | (Primary Dx) | | | | [address] | [address] | | | | | [phone] | | | +--------+ + + + [...] Gopi Muñoz DO - 2019 12:00 PM [id number] sig javi by Gopi Muñoz DO at 2019 8:58 PM PDT documented in this encounter Progress Notes Gopi Muñoz DO - 2019 12:00 PM PDT Subjective: DIALYSIS NOTE Patient ID: Estefani Tilley is a 74 y.o. female. HPI Comments: I inadvertently missed Estefani on dialysis rounds at [facility] on 05/08/2019. 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 There has been a great deal of confusion about her outpatient antibiotics, and hypertension regimen, therefore, I asked her to my office today. Apparently she was discharged from [facility] on 03/31/2019 with acute low back pain, fluid collection and a diagnosis of T11-T12 verteb ral discitis/osteomyelitis. CT-guided aspiration/biopsy did not reveal an organism. Theref ore she was discharged on 03/31 on outpatient IV Vanco, 500 mg, Q. HD treatment MWF, and IV cefepime daily through 05/04/2019. 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 (She does appear to a mbulate independently with only a cane for light assistance). PAST MEDICAL HISTORY: 1. ESRD 2 diabetic glomerulosclerosiswith the patient beginning Inpt HD in 018and then was DC to [facility]. Unfortunat brandy, she has had intermittent [...] get her back to Dr. Jessie Jansen, [facility], [place]. 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 She was A&O x3 during this discussion. I think that she understands her risk of CV disease, and stroke if she does no t take her meds. 4. Will relay the above to the charge nurse at [facility], LISA Marshall by secure text. 5. My partner, Dr. Magui Moseley will check in on her in 2 weeks at [facility]. 6. Lastly she is concerned about breakthrough pain. I agreed to give her generic Vicodin 5 mg / 325 mg, 1 tab, Q 12 Hours, #40, no refill. 7. Also, Estefani and her family would like to explore whether the [place] or [facility] are could h elp transport her back and forth to the [facility] clinic for her treatments, thrice weekly. [place] states that financially this is becoming a hardship for her. Electronically signed by Gopi Muñoz DO. 05/11/19 11:02 CC: Blaine Jansen MD, [place], [facility], [place], [place] [facility], [place], [place]. document ed in this encounter Plan [...]
--- OUTSIDE RECORDS SUMMARY | ~2019-08-24 | XMS | Encounter Summary ---
Demographics + + + | Address | [address] | | | [place] [address] | + + + | Home Phone [...] | Author | [facility] | | | and [place] | + + + | Organization | [facility] | | | and [place] | + + + | Address | Unknown | + + + | Phone | Unavailable | + + + Support + + + + + | Name | Relationship | Address | Phone | + + + + + | India Tilley | ECON | [address] | | | | | [place], [place] | | | | | [address] | | + + + + + | Yina La | ECON | Unknown | | + + + + + | Yina Peterson | ECON | Unknown | | + + + + + | Leatha Casillas | ECON | Unknown | | + + + + + Care Team Providers + +------+ + | Care Crude Oil Treater Name | Role | Phone | + +------+ + PCP | Unavailable | + +------+ + Encounter Details +--------+ + + + + | Date | Type | Department | Care Team | Description | +--------+ + + + + | 11/08/ | [facility] | Provider, | | | 2018 | Exam | MED CTR EXTERNAL | MD [address] | | | | | IMAGING | [address] | | | | | [phone] | [place] [address] | | +--------+ + + + + [...] for comparison only - no result from [place]. | [facility] | + + + + +---------+ + + | Performing | Address | City/State/Zipcode | Phone Number | | Organization | | | | + +---------+ + + | [facility] | | | | + +---------+ + + documented in this encounter Visit Diagnoses Not on filedocumented in this encounter"
--- OUTSIDE RECORDS SUMMARY | ~2019-08-24 | XMS | Encounter Summary ---
Demographics + + + | Address | [address] | | | [place] [address] | + + + | Home Phone [...] + | Author | [facility] | | | and [place] | + + + | Organization | [facility] | | | and [place] | + + + | Address | Unknown | + + + | Phone | Unavailable | + + + Support + + + + + | Name | Relationship | Address | Phone | + + + + + | India Tilley | ECON | [address] | | | | | [place], [place] | | | | | [address] | | + + + + + | Yina La | ECON | Unknown | | + + + + + | Yina Peterosn | ECON | Unknown | | + + + + + | Leatha Casillas | ECON | Unknown | | + + + + + Care Team Providers + +------+ + | Care Commercial Front Load Driver Name | Role | Phone | + +------+ + PCP | Unavailable | + +------+ + Reason for Visit +---------+ + | Reason | Comments | +---------+ + | Talent Coordinator | | +---------+ + Encounter Details +--------+ + + + + | Date | Type | Department | Care Team | Description | +--------+ + + + + | 12/12/ | Telephone | [facility] | Scott Koroma, | Talent Coordinator | | 2018 | | ORTHOPEDIC SURGERY | [address] [facility] | | | | | [address] [facility] | [place] | | | | | [place] | [address] | | | | | [address] | | | | | | [phone] | | | +--------+ + + + [...]
--- OUTSIDE RECORDS SUMMARY | ~2019-08-24 | XMS | Encounter Summary ---
Demographics + + + | Address | [address] | | | [place] [address] | + + + | Home Phone [...] | [facility] | | | and [place] | + + + | Organization | [facility] | | | and [place] | + + + | Address | Unknown | + + + | Phone | Unavailable | + + + Support + + + + + | Name | Relationship | Address | Phone | + + + + + | India Tilley | ECON | [address] | | | | | [place], [place] | | | | | [address] | | + + + + + | Yina La | ECON | Unknown | | + + + + + | Yina Peterson | ECON | Unknown | | + + + + + | Leatha Casillas | ECON | Unknown | | + + + + + Care Team Providers + +------+ + | Care Animal Ecologist Name | Role | Phone | + [...] + + | 06/14/ | Telephone | [facility] | Tabatha Patel, | Care Coordination | | 2019 | | INFECTIOUS DISEASE | Emergency Crew Supervisor | (Patient Timeline - | | | | [address] | | Line Care/Provider | | | | [place], [place] | | Management ) | | | | [address] | | | | | | [phone] | | | +--------+ + + + [...]
--- OUTSIDE RECORDS SUMMARY | ~2019-08-24 | XMS | Encounter Summary ---
Demographics + + + | Address | [address] | | | [place] [address] | + + + | Home Phone [...] Author | [facility] | | | and [place] | + + + | Organization | [facility] | | | and [place] | + + + | Address | Unknown | + + + | Phone | Unavailable | + + + Support + + + + + | Name | Relationship | Address | Phone | + + + + + | India Tilley | ECON | [address] | | | | | [place], [place] | | | | | [address] | | + + + + + | Yina La | ECON | Unknown | | + + + + + | Yina Peterson | ECON | Unknown | | + + + + + | Leatha Casillas | ECON | Unknown | | + + + + + Care Team Providers + +------+ + | Care Family Physician Name | Role | Phone | + +------+ + PCP | Unavailable | + +------+ + Encounter Details +--------+ + + + + | Date | Type | Department | Care Team | Description | +--------+ + + + + | 11/07/ | Hospital | [facility] | Peyman Wu, | CHR ISCHEMIC HRT DIS | | 2002 | Encounter | MEDICAL CENTER | [address] | NOS | | | | CLINICAL DECISION | [address] | | | | | [address] [facility] | [address] | | | | | [place], [place] | [phone] | | | | | [address] | | | | | | [phone] | | | +--------+ + + + [...]
--- OUTSIDE RECORDS SUMMARY | ~2019-08-24 | XMS | Encounter Summary ---
Demographics + + + | Address | [address] | | | [place] [address] | + + + | Home Phone [...] + | Author | [facility] | | | and [place] | + + + | Organization | [facility] | | | and [place] | + + + | Address | Unknown | + + + | Phone | Unavailable | + + + Support + + + + + | Name | Relationship | Address | Phone | + + + + + | India Tilley | ECON | [address] | | | | | [place], [place] | | | | | [address] | | + + + + + | Yina La | ECON | Unknown | | + + + + + | Yina Peterson | ECON | Unknown | | + + + + + | Leatha Casillas | ECON | Unknown | | + + + + + Care Team Providers + +------+ + | Care Senior Ssis Developer Name | Role | Phone | [...] + + | 06/03/ | Telephone | [facility] | Darlin Moseley W, | Dialysis | | 2018 | | NEPHROLOGY [address] | [address] | (Asymptomatic) | | | | [address] | [address] [place] | | | | | [place] | [place] [address] | | | | | [address] | [phone] | | | | | [phone] | | | +--------+ + + + [...]
--- OUTSIDE RECORDS SUMMARY | ~2019-08-24 | XMS | Encounter Summary ---
Demographics + + + | Address | [address] | | | [place] [address] | + + + | Home Phone [...] + | Author | [facility] | | | and [place] | + + + | Organization | [facility] | | | and [place] | + + + | Address | Unknown | + + + | Phone | Unavailable | + + + Support + + + + + | Name | Relationship | Address | Phone | + + + + + | India Tilley | ECON | [address] | | | | | [place], [place] | | | | | [address] | | + + + + + | Yina La | ECON | Unknown | | + + + + + | Yina Peterson | ECON | Unknown | | + + + + + | Leatha Casillas | ECON | Unknown | | + + + + + Care Team Providers + +------+ + | Care Erp Manager Name | Role | Phone | + +------+ + PCP | Unavailable | + +------+ + Encounter Details +--------+ + + + + | Date | Type | Department | Care Team | Description | +--------+ + + + + | 06/23/ | Hospital | [facility] | Patricia, | | | 2006 - | Encounter | MED CTR CANCER | Venkatesh Forte MD [address] | | | | | [place] [address] | [place] [facility] | | | 07/13/ | | [place] | [place] [address] | | | 2006 | | [address] | [phone] | | | | | [phone] | | | +--------+ + + + [...]
--- OUTSIDE RECORDS SUMMARY | ~2019-08-24 | XMS | Encounter Summary ---
Demographics + + + | Address | [address] | | | [place] [address] | + + + | Home Phone [...] Author | [facility] | | | and [place] | + + + | Organization | [facility] | | | and [place] | + + + | Address | Unknown | + + + | Phone | Unavailable | + + + Support + + + + + | Name | Relationship | Address | Phone | + + + + + | India Tilley | ECON | [address] | | | | | [place], [place] | | | | | [address] | | + + + + + | Yina La | ECON | Unknown | | + + + + + | Yina Peterson | ECON | Unknown | | + + + + + | Leatha Casillas | ECON | Unknown | | + + + + + Care Team Providers + +------+ + | Care Statistical Modeler Name | Role | Phone | + +------+ + PCP | Unavailable | + +------+ + Encounter Details +--------+ + + + + | Date | Type | Department | Care Team | Description | +--------+ + + + + | 10/14/ | Hospital | [facility] | | | | 2006 - | Encounter | MED CTR CANCER | | | | | | CENTER [facility] [address] | | | | 11/10/ | | [place] | | | | 2006 | | [address] | | | | | | [phone] | | | +--------+ + + + [...]
--- OUTSIDE RECORDS SUMMARY | ~2019-08-24 | XMS | Encounter Summary ---
Demographics + + + | Address | [address] | | | [place] [address] | + + + | Home Phone [...] | [facility] | | | and [place] | + + + | Organization | [facility] | | | and [place] | + + + | Address | Unknown | + + + | Phone | Unavailable | + + + Support + + + + + | Name | Relationship | Address | Phone | + + + + + | India Tilley | ECON | [address] | | | | | [place], [place] | | | | | [address] | | + + + + + | Yina La | ECON | Unknown | | + + + + + | Yina Peterson | ECON | Unknown | | + + + + + | Leatha Casillas | ECON | Unknown | | + + + + + Care Team Providers + +------+ + | Care Steak Tenderizer Machine Name | Role | Phone | + [...] | [address] | [address], [place] | | | | | [place] | [address] [place] | | | | | [address] | [address] | | | | | [phone] | | | +--------+ + + + [...] [employer] for consult: need to fax to [facility] closer t o appt. RU [...]
--- OUTSIDE RECORDS SUMMARY | ~2019-08-24 | XMS | Encounter Summary ---
Demographics + + + | Address | [address] | | | [place] [address] | + + + | Home Phone [...] + | Author | [facility] | | | and [place] | + + + | Organization | [facility] | | | and [place] | + + + | Address | Unknown | + + + | Phone | Unavailable | + + + Support + + + + + | Name | Relationship | Address | Phone | + + + + + | India Tilley | ECON | [address] | | | | | [place], [place] | | | | | [address] | | + + + + + | Yina La | ECON | Unknown | | + + + + + | Yina Peterson | ECON | Unknown | | + + + + + | Leatha Casillas | ECON | Unknown | | + + + + + Care Team Providers + +------+ + | Care Stitch Rubber Name | Role | Phone | + +------+ + PCP | Unavailable | + +------+ + Encounter Details +--------+ + + + + | Date | Type | Department | Care Team | Description | +--------+ + + + + | 03/02/ | Hospital | [facility] | Carlee, | | | 2007 | Encounter | MED CTR EMERGENCY | Venkatesh Esteban MD [address] | | | | | [place] [address] | [facility] | | | | | [place], [place] | [place] [address] | | | | | [address] | [phone] | | | | | [phone] | | | +--------+ + + + [...]
--- OUTSIDE RECORDS SUMMARY | ~2019-08-24 | XMS | Encounter Summary ---
Demographics + + + | Address | [address] | | | [place] [address] | + + + | Home Phone [...] | Author | [facility] | | | and [place] | + + + | Organization | [facility] | | | and [place] | + + + | Address | Unknown | + + + | Phone | Unavailable | + + + Support + + + + + | Name | Relationship | Address | Phone | + + + + + | India Tilley | ECON | [id number] | | | | | [place], [place] | | | | | [address] | | + + + + + | Yina La | ECON | Unknown | | + + + + + | Yina Peterson | ECON | Unknown | | + + + + + | Leatha Casillas | ECON | Unknown | | + + + + + Care Team Providers + +------+ + | Care Tower Watchman Name | Role | Phone | + +------+ + PCP | Unavailable | + +------+ + Encounter Details +--------+ + + + + | Date | Type | Department | Care Team | Description | +--------+ + + + + | 11/18/ | Hospital | [facility] | Patricia, | | | 2007 - | Encounter | [facility] | Venkatesh Forte MD [address] | | | | [place] [address] | [facility] | | | 12/11/ | | [place] | [place] [address] | | | 2007 | | [address] | [phone] | | | | | [phone] | | | +--------+ + + + [...]
--- OUTSIDE RECORDS SUMMARY | ~2019-08-24 | XMS | Clinical Summary ---
Demographics + + + | Address | [address] | | | [place] [address] | + + + | Home Phone [...] | Author | [facility] (Historical as of | | | 04-29-19) | + + + | Organization | [facility] (Historical as of | | | 04-29-19) [...] Team Providers + +------+ + | Care Store Mgr Name | Role | Phone | + [...]
--- OUTSIDE RECORDS SUMMARY | ~2019-08-24 | XMS | Encounter Summary ---
Demographics + + + | Address | [address] | | | [place] [address] | + + + | Home Phone [...] [facility] | | | and Kamaljitana | + + + | Organization | [facility] | | | and [place] | + + + | Address | Unknown | + + + | Phone | Unavailable | + + + Support + + + + + | Name | Relationship | Address | Phone | + + + + + | India Tilley | ECON | [address] | | | | [place], [place] | | | | | [address] | | + + + + + | Yina La | ECON | Unknown | | + + + + + | Yina Peterson | ECON | Unknown | | + + + + + | Leatha Casillas | ECON | Unknown | | + + + + + Care Team Providers + +------+ + | Care Change Agent Name | Role | Phone | [...] | Services | CKD | Gary, | [place] | | | Required | | (chronic | MD Mayelin | [address] | | | | | kidney | [address] | [facility] | | | | | disease) | [facility] | [place], [place] | | | | | stage 5, GFR | [place], [place] | [address] | | | | | less than | [address] | Phone: | | | | | 15 ml/min | Phone: | [phone] | | | | | (HCC) Type | [phone] | Fax: | | | | | 2 DM with | Fax: | [phone] | | | | | CKD stage 5 | [phone] | | | | | | and [...] + + | 11/01/ | Hospital | [facility] | Gopi Muñoz | Hypoglycemia; | | 2018 - | Encounter | [facility] | M, DO [address] | Hypothermia, initial | | | | [address] | [address] | encounter; CKD | | 11/09/ | | [place] [address] | [place], [place] | (chronic kidney | | 2018 | | [phone] | [address] | disease) stage 5, | | | | | | GFR less than 15 | | | | | Rupal Laguna MD | ml/min ([facility]); | | | | | [address] | Essential | | | | | [place], [place] | hypertension; | | | | | [address] | Sepsis, due to | | | | | | unspecified organism | | | | | Nora Leo MD | (HCC); Uremia; | | | | | [address] [facility] | Controlled type 2 | | | | | [place] [address] | diabetes mellitus | | | | | [phone] | with stage 5 chronic | | | | | | kidney disease not | | | | | | on chronic dialysis, | | | | | | with long-term | | | | | | current use of | | | | | | insulin ([facility]); End | | | | | | stage renal disease | | | | | | ([facility]); Type 2 DM | | [...] dialysis | | | | | | ([facility]); Streptococcal | | | | | | bacteremia; Acute | | | | | | hemodialysis | | | | | | encounter ([facility]) | +--------+ + + + [...] might be differ ent from the original. [place] HOSPITALIST DISCHARGE SUMMARY Pt. Name/Age/: Ara [...] insulin glargine 100 units/mL injection (vial) aka: [facility] COURSE: Please refer to the H&P for full details and the most recent rounding rounding (progress) n ote. In short this is a 72-year-old woman, history of hypertension, diabetes mellitus type 2 on insulin, chronic kidney disease of stage V, CAD, who presented to [facility] after be ing found down [...] evaluation. At time of arrival to send [facility], patient was feeling much better [...] n/a DISPOSITION AND DISCHARGE INSTRUCTIONS: Follow-up Information [facility] On 11/10/2017. Why: 1:00pm Contact information: [address] [place] [id number] Follow up In 3 days. Francisca Womack PA-C In 3 days. Specialty: Internal Medicine Contact information: [address] [place] [address] Hemodialysis In 1 day. Contact information: Appointment at 1:30 PM Condition: Patient being discharged with condition improved and stable Diet: renal, carbohydrate controlled Greater than 30 minutes were spent on discharge and coordination of post-hospital care. Electronically signed by: Mayelin Vega MD, 11/09/2017 11:06 [facility] Portions of this chart may have been created with [employer] voice recognition software. Occasi onal wrong-word or sound-alike substitutions may have occurred due to the inherent mckeon itations of voice recognition software. Please read the chart carefully and recognize, using context, where these substitutions have occurred documented in this encounter Discharge Instructions AttachmentsThe following attachments cannot be sent through Care Everywhere.Balancing Calci um and Phosphorus, Kidney Disease (Kittitian)Hemodialysis ([place])documented in this encounte r Medications at Time [...] + + +---------+ + + | Lancets [facility] | by Does not apply | | 0 | | | | | route. Use 1 [facility] | | | | 8 | | [...] Muñoz, DO - 11/09/2017 6:18 PM PST [facility] [address] [place] [address] PROGRESS NOTE Pt. Name/Age/: Ara Tilley 72 y.o. 1945 Med. Record Number: [id number] Date of admission: 11/01/2017 NEPHROLOGY HPI - [...] 3. Complete 10 days total of AB's. [facility] Nora Headley MD - 11/09/2017 4:24 PM [...] and she agreed. Nikki was raised in [place] and in [place], [place]. She has two brothers and two sisters, and h ad 4 children of her own. Her oldest child, daughter, two months ago. Nikki is gri eving her loss and teared up while talking about her. Her other children live in [facility] and one son has been in [place] for 23 years. She hasn't seen him since he was arr ested and is hopeful she will get to see him next year, as he is schedule to be released at that time. 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 She has at least 4 ye ars post high school education and studied [employer]. In the years prior to senior living, she worked at [employer]. Nikki's mother had chronic kidney disease and [...] and picking up and going to the [facility] [place] in [place]. She must plan it out, and that feels antithetical to her nature. Ginger escamilla was present and attentive while she discussed her grief around losing her family member s and her lifestyle, offered supportive adolescent counselor. Chayo Ramirez RN - 11/09/2017 10:00 AM Cam GONZALEZ arrived at [facility]'s room around 0800 to begin dialysis. [...] 11/08/2017 6:50 PM PSTThis provider, Palliative Care GROUP PROGRAM MANAGER, met briefly with "Nikki" Jose Raul rebecca [...] this note might be different from the [facility] [place] HOSPITALIST PROGRESS NOTE Patient: Ara Tilley : 1945: Age: 72 y.o. MedRec: [id number] Admission date: 11/01/2017 Hospital day # : [...] 100 mg 100 [facility] lomas MD 100 mg at 11/07/17 [...] mg/m L 0.25 mg [employer] [facility] Shared Services Representative Nora Leo MD [NOV Hold] labetalol (NORMODYNE) [...] nephrology recs -Nephro rec permacath needed for fpc dialysis -continue ferrlecit and Epogen 3. CAD- no signs of ACS, EKG RBBB, trop 0.03 at OSH -Continue aspirin, lipitor 4. Hypothyroidism -TSH WNL -Continue levothyroxine 5. HTN uncontrolled -Continue Labetalol and furosemide -Continue losartan 25 mg daily PPX: HSQ FEN: renal Mayelin Vega 11/08/2017 11:50 [facility] Nora Headley MD - 11/08/2017 10:06 [...] might be different f rom the original. [facility] [place] HOSPITALIST PROGRESS NOTE Patient: Ara Tilley : 1945: Age: 72 y.o. 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 CAD- no signs of ACS, EKG RBBB, trop 0.03 at OSH -Continue aspirin, lipitor 4. Hypothyroidism -TSH WNL -Continue levothyroxine 5. HTN uncontrolled -Continue Labetalol and furosemide -restart losartan 25 mg daily PPX: HSQ FEN: renal Mayelin Vega 11/07/2017 12:57 [facility] Cordell Palmer MD - 11/07/2017 9:43 AM PSTFormatting of this note might be different from the maynor rollins [facility] NEPHROLOGY progress note Patient: Ara Tilley : [...] Darlin Moseley MD Electronically signed: 11/07/2017 9:43 [facility] NEPHROLOGY Olegario Keen M D - 11/06/2017 2:15 PM PST [facility] [place] HOSPITALIST PROGRESS NOTE Patient: Ara Tilley : 1945: Age: 72 y.o. MedRec: [id number] Admission date: 11/01/2017 Hospital day # : [...] Procedure Component Value Units Date/Time Culture, Blood [[id number]] (Normal) Collected: 11/04/172121 Order Status: Completed Lab Status: Preliminary result Updated: 11/05/17930 Specimen: Blood from Line Culture No growth: Monitored continually by instrument for 5 days Culture, Blood [[id number]] (Normal) Collected: 11/04/17 2103 Order Status: Completed Lab Status: Preliminary result Updated: 11/05/17 0911 Specimen: Blood from Line Culture No growth: Monitored continually by instrument for 5 days Culture, Blood [[id number]] (Normal) Collected: 11/03/17 1506 Order Status: Completed [...] to determ ine if permacath needed for fpc dialysis CAD no signs of ACS, EKG [...] Oral BID PRN Olegario Peng 11/06/2017 14:15 [facility] Darlin Palmer M D - 11/06/2017 9:10 AM PST [facility] NEPHROLOGY progress note Patient: Ara Tilley : [...] Continuous Infusions: Heparin Infusion 200 Units/hr (11/06/17 9617) PRN Meds:acetaminophen, albumin, albuterol, bisacodyl, Hypoglycemia Management [...] Darlin Moseley MD Electronically signed: 11/06/2017 9:11 [facility] NEPHROLOGY Olegario Keen M D - 11/05/2017 2:08 PM PST [facility] HOSPITALIST PROGRESS NOTE Patient: Ara Tilley : 1945: Age: 72 y.o. MedRec: [id number] Admission date: 11/01/2017 Hospital day # : [...] Procedure Component Value Units Date/Time Culture, Blood [[id number]] (Normal) Collected: 11/04/172 Order Status: Completed Lab Status: Preliminary result Updated: 11/05/17 0931 Specimen: Blood from Line Culture No growth: Monitored continually by instrument for 5 days Culture, Blood [[id number]] (Normal) Collected: 11/04/172102 Order Status: Completed Lab Status: Preliminary result Updated: 11/05/17 0911 Specimen: Blood from Line Culture No growth: Monitored continually by instrument for 5 days Culture, Blood [[id number]] (Normal) Collected: 11/03/17 1506 Order Status: Completed Lab Status: Preliminary result Updated: 11/04/17 0311 Specimen: Blood from Peripheral Blood Culture No growth: Monitored continually by instrument for 5 days Culture, Blood [[id number]] (Abnormal) Collected: 11/03/17 0812 Order Status: Completed Lab Status: Preliminary result Updated: 11/05/17 0751 Specimen: Blood from Arm, Left Culture Positive Blood Culture (AA) Staphylococcus coagulase negative Comment: Identification and susceptibility to follow. Probable contaminant Gram Stain Result Gram positive cocci in clusters Comment: 2 of 4 bottles positive Culture, Respiratory, Lower, Smear [[id number]] Collected: 11/03/17 0727 Order Status: Completed Lab [...] Oral BID PRN Olegario Peng 11/05/2017 14:08 [facility] Darlin Palmer M D - 11/05/2017 1:53 PM PST [facility] NEPHROLOGY progress note Patient: Ara Tilley : [...] Darlin Moseley MD Electronically signed: 11/05/2017 13:53 [facility] NEPHROLOGY Gopi Mckenna , DO - 11/04/2017 6:53 PM PST [facility] [address] [place] [address] PROGRESS NOTE Pt. Name/Age/: Ara Tilley 72 y.o. 1945 Med. Record Number: [id number] Date of admission: 11/01/2017 NEPHROLOGY HPI - [...] to high Inpt case load here at [facility]. 2. probable pyelonephritis?--Day #3 Ceftriaxone, Day [...] for coverage of both organisms, Q 48H. [facility] Queenie Hall RN - 11/04/2017 10:23 AM PSTPatient transferred from ICU into room 307. Oriented to room an d call light. Bed alarm set. Call light in place. Remains on 2L via nasal canula. Makes need s known. Amanda Keen MD - 11/04/2017 7:21 AM PSTFormatting of this note might be different from the origin al. [facility] [place] HOSPITALIST PROGRESS NOTE Patient: Ara Tilley : 1945: Age: 72 y.o. MedRec: [id number] Admission date: 11/01/2017 Hospital day # : [...] Procedure Component Value Units Date/Time Culture, Blood [[id number]] (Normal) Collected: 11/03/17 1506 Order Status: Completed Lab Status: Preliminary result Updated: 11/04/17 0311 Specimen: Blood from Peripheral Blood Culture No growth: Monitored continually by instrument for 5 days Culture, Blood [[id number]] (Normal) Collected: 11/03/17 0812 Order Status: Completed Lab Status: Preliminary result Updated: 11/03/17 2041 Specimen: Blood from Arm, Left Culture No growth: Monitored continually by instrument for 5 days Culture, Respiratory, Lower, Smear [[id number]] Collected: 11/03/17 0727 Order Status: Completed Lab Status: Preliminary result Updated: 11/03/17 1028 Specimen: Respiratory from Sputum, expectorated Gram Stain Result 3+ White Blood Cells 2+ Epithelial cells 2+ Gram positive cocci 2+ Gram positive bacilli 1+ Hyphael elements Influenza A and B RNA, NAAT [[id number]] (Normal) Collected: 11/02/17 1050 Order Status: Completed Lab Status: Final result Updated: 11/02/17 1125 Specimen: Respiratory from Nares Influenza A PCR Negative Influenza B PCR Negative Culture, Urine [[id number]] Collected: 11/02/17 0740 Order Status: Completed Lab Status: Preliminary result Updated: 11/03/17 1013 Specimen: Urine Culture >100,000 CFU/ml Lactose Fermenting Gram Negative Bacilli Comment: Identification and susceptibility to follow. Culture, Blood [[id number]] (Normal) Collected: 11/02/17 0024 Order Status: Completed Lab Status: Preliminary result Updated: 11/02/17 1241 Specimen: Blood from Peripheral Blood Culture No growth: Monitored continually by instrument for 5 days Culture, Blood [[id number]] (Abnormal) Collected: 11/02/17 0019 Order Status: Completed [...] 15:14 by Edison Short. Narrative: Culture, MRSA [[id number]] Collected: 11/01/17 2146 Order Status: Completed Lab [...] in chains -Repeat UA (+), urine culture >076693 GNB lactose fermenting -Continue ceftriaxone started 11/02, [...] Q30 Min PRN Olegario Peng 11/04/2017 7:21 [facility] Nick Aguillon, RN - 0 11/04/2017 1:06 AM PSTDialysis treatment started and Arterial pressures running in the -400s , trouble shooting ineffective, arterial and venous lines switched, pressures now -50s. Shama sarabia is running appropriately at this moment, will continue monitoring. Nick Guallpa Gopi Mckenna, DO - 11/03/2017 11:20 AM PST [facility] [address] [place], [place] [id number] PROGRESS NOTE Pt. Name/Age/: Ara Tilley 72 y.o. 1945 Med. Record Number: [id number] Date of admission: 11/01/2017 NEPHROLOGY HPI - [...] anemia. 4. Encourage ambulation to minimize atelectasis. [facility] Olegario Keen MD - 11/03/2017 7:07 AM PST [facility] [place] HOSPITALIST PROGRESS NOTE Patient: Ara Tilley : 1945: Age: 72 y.o. MedRec: [id number] Admission date: 11/01/2017 Hospital day # : [...] 5 mg Nebulization RT Q4H PRN Anibal racos MD amLODIPine (NORVASC) tablet 10 mg 10 [...] 2-6 mg 2-6 mg Intravenous Q2H PRN Rupla Laguna MD 2 mg at 11/02 0924 [...] PH UA 6.0 5.0 - 8.0 Specific Chalmers 1.010 1.001 - 1.030 PROTEIN UA 100 [...] Date/Time Influenza A and B RNA, NAAT [[id number]] (Normal) Collected: 11/02/17 1050 Order Status: Completed Lab Status: Final result Updated: 11/02/17 1125 Specimen: Respiratory from Nares Influenza A PCR Negative Influenza B PCR Negative Culture, Urine [[id number]] Collected: 11/02/17 0740 Order Status: Sent Lab Status: In process Updated: 11/02/17 0758 Specimen: Urine Culture, Blood [[id number]] (Normal) Collected: 11/02/17 0024 Order Status: Completed Lab Status: Preliminary result Updated: 11/02/17 1241 Specimen: Blood from Peripheral Blood Culture No growth: Monitored continually by instrument for 5 days Culture, Blood [[id number]] (Abnormal) Collected: 11/02/17 0019 Order Status: Completed Lab Status: Preliminary result Updated: 11/02/17 1515 Specimen: Blood from Peripheral Blood Culture Positive Blood Culture (AA) Gram Stain Result Gram positive cocci in chains Comment: One of four Blood Culture bottles POSITIVE. Critical Result called to and read b ack by Kristen Irving on 11/02/2017 at 15:14 by Edison Short. Narrative: Culture, MRSA [[id number]] Collected: 11/01/17 2146 Order Status: Sent Lab [...] Oral BID PRN Olegario Peng 11/03/2017 7:08 [facility] olph, Ta Restrepo, [facility] - 11/02/2017 3:43 PM PST PHARMACY SERVICES: [...] strength, and directions X Pharmacy list names: [facility] STATISTICIAN (Prescription Monitoring Program) X [facility] reported information X Care Everywhere [...] Prior to Admission Sig: Patient taking differently MANAGER OF INVESTIGATIONS as: Atorvastatin 20mg 1 tab by mouth nightly 1 tab by mouth every morning Calcium- vitamin d 600-400mg 1 tab by mouth twice daily 1 tab by mouth every morning Duloxetine 30mg DR 1 capsule by mouth daily Patient has not started this medication MANAGER OF INVESTIGATIONS, cortés s not filled at pharmacy [id number] 200mg by mouth twice daily 200mg by mouth every morning labetalol 200mg 1 tab by mouth twice daily Patient has not started this medication MANAGER OF INVESTIGATIONS, has not filled at pharmacy Best possible MANAGER OF INVESTIGATIONS medication list after pharmacy review: Prior to [...] performed and electronically signed by Puja Whitman, Bus Operator 2017 15:31 Electronically signed by: Ta Ronquillo [facility] 11/02/2017 15:40 Olegario Keen MD - 11/02/2017 7:21 AM PST [facility] [place] HOSPITALIST PROGRESS NOTE Patient: Ara Tilley : 1945: Age: 72 y.o. MedRec: [id number] Admission date: 11/01/2017 Hospital day # : [...] Procedure Component Value Units Date/Time Culture, Blood [[id number]] Collected: 11/02/1723 Order Status: Sent Lab Status: In process Updated: 11/02/1732 Specimen: Blood from Peripheral Blood Culture, Blood [[id number]] Collected: 11/02/1718 Order Status: Sent Lab Status: In process Updated: 11/02/1732 Specimen: Blood from Peripheral Blood Culture, MRSA [[id number]] Collected: 11/01/172145 Order Status: Sent Lab Status: [...] 0.9% Intravenous Continuous Olegario Peng 11/02/2017 7:38 [facility] documented in this e ncounter Plan [...] | | | | than 15 ml/min ([facility]) | | | | | | Type 2 DM with CKD | | | | | | stage 5 and | | | | | | hypertension ([facility]) | | | | | | Acute hemodialysis | | | | | | encounter ([facility]) | | + + +--------+ [...] [address] | [place] | [phone] | | [facility] | | [address] | | | - LABORATORY | | [...] [address] | [place] | [phone] | | [facility] | | [address] | | | - LABORATORY | | [...] [address] | [place] | [phone] | | [facility] | | [address] | | | - LABORATORY | | [...] (H) | 7 - 18 mg/dL | [facility] | | | | | | [facility] | | | | | | MEDICAL | | | | | | CENTER - | | | | | | LABORATORY | | + + + + + + | Creatinine | 2.99 (H) | 0.60 - 1.30 | [facility] | | | | | mg/dL | [facility] | | | | | | MEDICAL | | | | | | CENTER - | | | | | | LABORATORY | | + + + + + + | eGFR if not | 15 (L)Comment: | >=60 | [facility] | | | | GLOMERULAR FILTRATION | mL/min/1.73m2 | [facility] | | | [place] | RATE,ESTIMATED | | MEDICAL | | | | mL/min/1.92o6Pyfv than | | CENTER - | | [...] | [facility] | [address] | [place] | [phone] | | [facility] | | [address] | | | - LABORATORY | | [...] + | [facility] | [address] | [place] | [phone] | | [facility] | | [address] | | | - LABORATORY | | [...] | | POC | | | [facility] | | | | | | MEDICAL [...] [address] | [place] | [phone] | | [facility] | | [address] | | | - LABORATORY | | [...] Urine | appended report. These | | [facility] | | | | results have [...] [address] | [place] | [phone] | | [facility] | | [address] | | | - LABORATORY | | [...] [address] | [place] | [phone] | | [facility] | | [address] | | | - LABORATORY | | [...] [address] | [place] | [phone] | | [facility] | | [address] | | | - LABORATORY | | [...] + | [facility] | [address] | [place] | [phone] | | [facility] | | [address] | | | - LABORATORY | | [...] | | MEDICAL | | | | mL/min/1.01o0Wmwr than | | CENTER - | | [...] ST. | [address] | [place], [place] | [phone] | | [facility] | | [address] | | | - LABORATORY | | [...] [address] | [place] | [phone] | | [facility] | | [address] | | | - LABORATORY | | [...] [address] | [place] | [phone] | | [facility] | | [address] | | | - LABORATORY | | [...] + | [facility] | [address] | [place] | [phone] | | [facility] | | [address] | | | - LABORATORY | | [...] [address] | [place] | [phone] | | [facility] | | [address] | | | - LABORATORY | | [...] [address] | [place] | [phone] | | [facility] | | [address] | | | - LABORATORY | | [...] + | [facility] | [address] | [place] | [phone] | | [facility] | | [address] | | | - LABORATORY | | [...] [address] | [place] | [phone] | | [facility] | | [address] | | | - LABORATORY | | [...] [address] | [place] | [phone] | | [facility] | | [address] | | | - LABORATORY | | [...] | | GLOMERULAR FILTRATION | mL/min/1.73m2 | [facility] | | | [place] | RATE,ESTIMATED | | MEDICAL | | | | mL/min/1.86c3Dbqa than | | CENTER - | | [...] + | [facility] | [address] | [place] | [phone] | | [facility] | | [address] | | | - LABORATORY | | [...] [address] | [place] | [phone] | | [facility] | | [address] | | | - LABORATORY | | [...] ST. | [address] | [place], [place] | [phone] | | [facility] | | [address] | | | - LABORATORY | | [...] + | [facility] | [address] | [place] | [phone] | | [facility] | | [address] | | | - LABORATORY | | [...] + | [facility] | [address] | [place] | [phone] | | [facility] | | [address] | | | - LABORATORY | | [...] [address] | [place] | [phone] | | [facility] | | [address] | | | - LABORATORY | | [...] [address] | [place] | [phone] | | [facility] | | [address] | | | - LABORATORY | | [...] [address] | [place] | [phone] | | [facility] | | [address] | | | - LABORATORY | | [...] | | MEDICAL | | | | mL/min/1.08h0Tycm than | | CENTER - | | [...] + | [facility] | [address] | [place] | [phone] | | [facility] | | [address] | | | - LABORATORY | | [...] ST. | [address] | [place], [place] | [phone] | | [facility] | | [address] | | | - LABORATORY | | [...] + | [facility] | [address] | [place] | [phone] | | [facility] | | [address] | | | - LABORATORY | | [...] [address] [address] | [place] | [phone] | | [facility] | | [address] | | | - LABORATORY | | [...] Demographics Patient Name ANDRES | | | [facility] Room Number 307 EMILE | | | Patient Number [id number] Date of Study | | | 11/05/2017 Visit Number [id number] | | | Referring Physician AUDI ANDRADE Number Date of | | | 1945 Area Secretary Jasbir Gatcia | | | Age 72 year(s) Interpreting | | | GENIE WARREN | | | Jig Hand CHAYO | | | SHERRIE RADFORD, | | | | | | Gender Female 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 | |Tricuspid Valve | |Crvr-gr-qihcgnbc tricuspid regurgitation suggestive of a mildly elevated [...] LA Volume: 60.67 ml | | EF Sjdfyeqwd54% | | | | Left Ventricle | [...] + | [facility] | [address] | [place] | [phone] | | [facility] | | [address] | | | - LABORATORY | | [...] + | [facility] [facility] | [address] | [place] | [phone] | | [facility] | | [address] | | | - LABORATORY | | [...] [address] | [place] | [phone] | | [facility] | | [address] | | | - LABORATORY | | [...] [address] | [place] | [phone] | | [facility] | | [address] | | | - LABORATORY | | [...] [address] | [place] | [phone] | | [facility] | | [address] | | | - LABORATORY | | [...] | | MEDICAL | | | | mL/min/1.87n2Dtdu than | | CENTER - | | [...] [address] | [place] | [phone] | | [facility] | | [address] | | | - LABORATORY | | [...] [address] | [place] | [phone] | | [facility] | | [address] | | | - LABORATORY | | [...] + | [facility] | [address] | [place] | [phone] | | [facility] | | [address] | | | - LABORATORY | | [...] [address] | [place] | [phone] | | [facility] | | [address] | | | - LABORATORY | | [...] [address] | [place] | [phone] | | [facility] | | [address] | | | - LABORATORY | | [...] | [facility] [facility] | [address] | [place] | [phone] | | [facility] | | [address] | | | - LABORATORY | | [...] + | [facility] | [address] | [place] | [phone] | | [facility] | | [address] | | | - LABORATORY | | [...] [address] | [place] | [phone] | | [facility] | | [address] | | | - LABORATORY | | [...] + | [facility] | [address] | [place] | [phone] | | [facility] | | [address] | | | - LABORATORY | | [...] [address] | [place] | [phone] | | [facility] | | [address] | | | - LABORATORY | | [...] | | MEDICAL | | | | mL/min/1.68i1Dees than | | CENTER - | | [...] [address] | [place] | [phone] | | [facility] | | [address] | | | - LABORATORY | | [...] [address] | [place] | [phone] | | [facility] | | [address] | | | - LABORATORY | | [...] | [address] [facility] | [address] | [place] | [phone] | | [facility] | | [address] | | | - LABORATORY | | [...] + + | Performing | Address | City/State/[facility] | Phone Number | | Organization | | | | + + + + + | [facility] | [address] | [place] | [phone] | | [facility] | | [address] | | | - LABORATORY | | [...] [address] | [place] | [phone] | | [facility] | | [address] | | | - LABORATORY | | [...] [address] | [place] | [phone] | | [facility] | | [address] | | | - LABORATORY | | [...] + | [facility] | [address] | [place] | [phone] | | [facility] | | [address] | | | - LABORATORY | | [...] [address] | [place] | [phone] | | [facility] | | [address] | | | - LABORATORY | | [...] + | [facility] | [address] | [place] | [phone] | | [facility] | | [address] | | | - LABORATORY | | [...] [address] | [place] | [phone] | | [facility] | | [address] | | | - LABORATORY | | [...] + | [facility] | [address] | [place] | [phone] | | [facility] | | [address] | | | - LABORATORY | | [...] | | Result | | | [facility] | | [...] + | [facility] | [address] | [place] | [phone] | | [facility] | | [address] | | | - LABORATORY | | [...] [address] | [place] | [phone] | | [facility] | | [address] | | | - LABORATORY | | [...] + + | Performed at: 01 - [facility] [address], | REFERENCE LAB | | [place], [place] [id number] Underwriting Clerk: Ernie Lee MD, Phone: | [facility] | | [phone] | | + + + + + + + + | Performing | Address | City/State/Zipcode | Phone Number | | Organization | | | | + + + + + | REFERENCE LAB | [address] | [place] [address] | [phone] | | [facility] | Drive [...] ST. | [address] | [place] | [phone] | | [facility] | | [address] | | | - LABORATORY | | [...] [address] | [place] | [phone] | | [facility] | | [address] | | | - LABORATORY | | [...] [facility] | | | | | | [facility] | | | | | | MEDICAL | | | | | | CENTER - | | | | | | LABORATORY | | + + + + + + | RBC | 2.97 (L) | 3.70 - 5.20 | [facility] | | | | | M/uL | [facility] | | | | | [...] + | [facility] | [address] | [place] | [phone] | | [facility] | | [address] | | | - LABORATORY | | [...] test | | | | | | ([id number]). | | | | + + + + + + + + | Specimen | + + | Blood | + + + + + | Narrative | Performed At | + + + | Performed at: 01 - [facility] [place] [address], | REFERENCE LAB | | [place], [place] [id number] Underwriting Clerk: Ernie Lee MD, Phone: | [facility] | | [phone] | | + + + + + + + + | Performing | Address | City/State/Zipcode | Phone Number | | Organization | | | | + + + + + | REFERENCE LAB | [address] | [place] [address] | [phone] | | [facility] | Drive [...] | | MEDICAL | | | | mL/min/1.58r5Poeg than | | CENTER - | | [...] [address] | [place] | [phone] | | [facility] | | [address] | | | - LABORATORY | | [...] [address] | [place] | [phone] | | [facility] | | [address] | | | - LABORATORY | | [...] + | [facility] | [address] | [place] | [phone] | | [facility] | | [address] | | | - LABORATORY | | [...] [address] | [place] | [phone] | | [facility] | | [address] | | | - LABORATORY | | [...] + | [facility] | [address] | [place] | [phone] | | [facility] | | [address] | | | - LABORATORY | | [...] [address] | [place] | [phone] | | [facility] | | [address] | | | - LABORATORY | | [...] [address] | [place] | [phone] | | [facility] | | [address] | | | - LABORATORY | | [...] [address] | [place] | [phone] | | [facility] | | [address] | | | - LABORATORY | | [...] | POC | | | [facility] | | | | | [...] + | [facility] | [address] | [place] | [phone] | | [facility] | | [address] | | | - LABORATORY | | [...] [address] | [place] | [phone] | | [facility] | | [address] | | | - LABORATORY | | [...] [address] | [place] | [phone] | | [facility] | | [address] | | | - LABORATORY | | [...] [address] | [place] | [phone] | | [facility] | | [address] | | | - LABORATORY | | [...] [address] | [place] | [phone] | | [facility] | | [address] | | | - LABORATORY | | [...] [address] | [place] | [phone] | | [facility] | | [address] | | | - LABORATORY | | [...] [address] | [place] | [phone] | | [facility] | | [address] | | | - LABORATORY | | [...] + | [facility] | [address] | [place] | [phone] | | [facility] | | [address] | | | - LABORATORY | | [...] [address] | [place] | [phone] | | [facility] | | [address] | | | - LABORATORY | | [...] [address] | [place] | [phone] | | [facility] | | [address] | | | - LABORATORY | | [...] [address] | [place] | [phone] | | [facility] | | [address] | | | - LABORATORY | | [...] + | [facility] | [address] | [place] | [phone] | | [facility] | | [address] | | | - LABORATORY | | [...] | | MEDICAL | | | | mL/min/1.75x9Rydo than | | CENTER - | | [...] + | [facility] [facility] | [address] | [place], [place] | [phone] | | [facility] | | [address] | | | - LABORATORY | | [...] [address] | [place] | [phone] | | [facility] | | [address] | | | - LABORATORY | | [...] - 1.030 | [facility] | | | [place] | | | [facility] | | [...] [address] | [place] | [phone] | | [facility] | | [address] | | | - LABORATORY | | [...] | | | | | | [employer] | | | | | [...] + + | Performing | Address | City/State/[facility] | Phone Number | | Organization | | | | + + + + + | [facility] | [address] | [place] | [phone] | | [facility] | | [address] | | | - LABORATORY | | [...] [address] | [place] | [phone] | | [facility] | | [address] | | | - LABORATORY | | [...] [address] | [place] | [phone] | | [facility] | | [address] | | | - LABORATORY | | [...] [address] | [place] | [phone] | | [facility] | | [address] | | | - LABORATORY | | [...] | [address] [facility] | [address] | [place] | [phone] | | [facility] | | [address] | | | - LABORATORY | | [...] ST. | [address] | [place] | [phone] | | [facility] | | [address] | | | [...] + | [facility] | [address] | [place] | [phone] | | [facility] | | [address] | | | - LABORATORY | | [...] [address] | [place] | [phone] | | [facility] | | [address] | | | - LABORATORY | | [...] | | | | | | [employer] | | | | | [...] + + | Performing | Address | City/State/[facility] | Phone Number | | Organization | | | | + + + + + | [facility] | [address] | [place] | [phone] | | [facility] | | [address] | | | - LABORATORY | | [...] At | + + + | | [facility] | | | [facility] | | | [facility] | | | - LABORATORY [...] [address] | [place] | [phone] | | [facility] | | [address] | | | - LABORATORY | | [...] [address] | [place] | [phone] | | [facility] | | [address] | | | - LABORATORY | | [...] | | MEDICAL | | | | mL/min/1.48i6Ggxx than | | CENTER - | | [...] [address] | [place] | [phone] | | [facility] | | [address] | | | - LABORATORY | | [...] [address] | [place] | [phone] | | [facility] | | [address] | | | - LABORATORY | | [...] [address] | [place] | [phone] | | [facility] | | [address] | | | - LABORATORY | | [...] [address] | [place] | [phone] | | [facility] | | [address] | | | - LABORATORY | | [...] for comparison only - no result from [place]. | [facility] | + + + [...] for comparison only - no result from [place]. | [facility] | + + + [...] for comparison only - no result from [place]. 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 If | | | [...] | | | | | | use [place] 10/325 if ordered. If | | | [...] | | | | | | | 6583-1551 Use NIGHT DOSE for | | | | | | | doses scheduled: HS, 3AM, | | | | | | | Nighttime 0464-6008, | | | | | | + [...] scheduled: AC, | | | NPO, Daytime 0359-5419 Use NIGHT | | | DOSE for doses scheduled: | | | HS, 3AM, Nighttime 4775-8410, | | + +---+ | | | [...]
--- OUTSIDE RECORDS SUMMARY | ~2019-08-24 | XMS | Encounter Summary ---
Demographics + + + | Address | [address] | | | [place] [address] | + + + | Home Phone [...] Author | [facility] | | | and [place] | + + + | Organization | [facility] | | | and [place] | + + + | Address | Unknown | + + + | Phone | Unavailable | + + + Support + + + + + | Name | Relationship | Address | Phone | + + + + + | [place] T[place] | ECON | [address] | | | | | [place], [place] | | | | | [address] | | + + + + + | Yina La | ECON | Unknown | | + + + + + | Yina Peterson | ECON | Unknown | | + + + + + | Leatha Casillas | ECON | Unknown | | + + + + + Care Team Providers + +------+ + | Care Pan Pusher Name | Role | Phone | + [...] | | | | renal | PA-C [address] | [address] [place] [address] | | | | | disease | | [address] | | | | | ([facility]) | CONFEDERATED | [address] | | | | | Procedures | WAY | [place] | | | | | [place] OFFICE | [place], | [address] Phone: | | | | | OUTPATIENT | [place] [address] | [phone] | | | | | VISIT 25 | Phone: | Fax: | | | | | [place] | [phone] | [phone] | | | | | ESRD RELATED | Fax: | | | | | | SVC MONTHLY | [phone] | | | | | | 20&/> YR | | | | | | | OLD 4/> | | | | | | | VISITS | | | +--------+--------+ + + + + Encounter Details +--------+ + + + + | Date | Type | Department | Care Team | Description | +--------+ + + + + | 07/11/ | Off-Site | [facility] | Gopi Muñoz | End stage renal | | 2018 | Visit | NEPHROLOGY [address] | M, DO [address] | disease (HCC) | | | | [address] | [place], [address] | (Primary Dx) | | | | [place], [place] | [place], [place] | | | | | [address] | [address] | | | | | [phone] | | | +--------+ + + + [...]
--- OUTSIDE RECORDS SUMMARY | ~2019-08-24 | XMS | Encounter Summary ---
Demographics + + + | Address | [address] | | | [place] [address] | + + + | Home Phone [...] Author | [facility] | | | and [place]al[place]it[place] | + + + | Organization | [facility] | | | and [place] | + + + | Address | Unknown | + + + | Phone | Unavailable | + + + Support + + + + + | Name | Relationship | Address | Phone | + + + + + | [place] T[place]ley | ECON | [address] | | | | | [place], [place] | | | | | [address] | | + + + + + | Yina La | ECON | Unknown | | + + + + + | Yina Peterson | ECON | Unknown | | + + + + + | Leatha Casillas | ECON | Unknown | | + + + + + Care Team Providers + +------+ + | Care Crawler Crane Operator Name | Role | Phone | + +------+ + PCP | Unavailable | + +------+ + Encounter Details +--------+---------+ + + + | Date | Type | Department | Care Team | Description | +--------+---------+ + + + | 01/04/ | Surgery | [facility] | Santos Stephenson | Right Transposed | | 2018 | | MED CTR OR INTRA OP | MD Kinga, FACS [address] | Basilic Vein to | | | | [address] | [address] [place] | Proximal Radial | | | | [place], [place] | [place] [address] | Artery | | | | [address] | [phone] | | | | | [phone] | | | +--------+---------+ + + + [...] what medicines and drugsyou take. This includes ewnn-nkx-kep nter medicines, herbs, supplements, alcohol or other [...] ke ep you safe. Date Last Reviewed: 08/13/201619993133-8668 [employer]. [address] [place] [address]. All righ ts reserved. This information is not intended as a substitute for professional medical care. Always follow your healthcare professional's instructions. [facility] POST-OP INSTRUCTIONS: Arterio-Venous Fistula 1. Keep the [...] | | | | | PDT | ([facility]) (N18.5) | | + +--------+ [...] [address] | [place] | [phone] | | [facility] | | [address] | | | - LABORATORY | | [...] + | [facility] | [address] | [place] | [phone] | | [facility] | | [address] | | | - LABORATORY | | [...] [address] | [place] | [phone] | | [facility] | | [address] | | | - LABORATORY | | [...] [address] | [place] | [phone] | | [facility] | | [address] | | | - LABORATORY | | [...] mL/min/1.73m2 | [facility] | | | [place] | RATE,ESTIMATED | | MEDICAL | | | | mL/min/1.85w9Tfgn than | | CENTER - | | [...] [address] | [place] | [phone] | | [facility] | | [address] | | | - LABORATORY | | [...]
--- OUTSIDE RECORDS SUMMARY | ~2019-08-24 | XMS | Encounter Summary ---
Demographics + + + | Address | [address] | | | [place] [address] | + + + | Home Phone [...] | Author | [facility] | | | and [place] | + + + | Organization | [facility] | | | and [place] | + + + | Address | Unknown | + + + | Phone | Unavailable | + + + Support + + + + + | Name | Relationship | Address | Phone | + + + + + | India Tilley | ECON | [address] | | | | | [place], [place] | | | | | [address] | | + + + + + | Yina La | ECON | Unknown | | + + + + + | Yina Peterson | ECON | Unknown | | + + + + + | Leatha Casillas | ECON | Unknown | | + + + + + Care Team Providers + +------+ + | Care Accountant Systems Name | Role | Phone | + [...] NEPHROLOGY [address] | M, DO [address] | Problem | | | | [address] | [place] | | | | | [place] | [place] | | | | | [address] | [address] | | | | | [phone] | | | +--------+ + + + [...]
--- OUTSIDE RECORDS SUMMARY | ~2019-08-24 | XMS | Encounter Summary ---
Demographics + + + | Address | [address] | | | [place] [address] | + + + | Home Phone [...] | Author | [facility] | | | and [place] | + + + | Organization | [facility] | | | and [place] | + + + | Address | Unknown | + + + | Phone | Unavailable | + + + Support + + + + + | Name | Relationship | Address | Phone | + + + + + | India Tilley | ECON | [address] | | | | | [place], [place] | | | | | [address] | | + + + + + | Yina La | ECON | Unknown | | + + + + + | Yina Peterson | ECON | Unknown | | + + + + + | Leatha Casillas | ECON | Unknown | | + + + + + Care Team Providers + +------+ + | Care Wound Care Center Consultant Name | Role | Phone | + +------+ + PCP | Unavailable | + +------+ + Encounter Details +--------+ + + + + | Date | Type | Department | Care Team | Description | +--------+ + + + + | 12/05/ | Hospital | [facility] | Carlos Sandoval | | | 2007 | Encounter | MED CTR XRAY [address] | MD Kwame [address] [facility] | | | | | [place] | [place], [place] | | | | | [place] [address] | [id number] | | | | | [phone] | | | +--------+ + + + [...]
--- OUTSIDE RECORDS SUMMARY | ~2019-08-24 | XMS | Encounter Summary ---
Demographics + + + | Address | [address] | | | [place] [address] | + + + | Home Phone [...] Author | [facility] | | | and [place]it[place] | + + + | Organization | [facility] | | | and [place] | + + + | Address | Unknown | + + + | Phone | Unavailable | + + + Support + + + + + | Name | Relationship | Address | Phone | + + + + + | [place] Tilley | ECON | [address] | | | | | [place], [place] | | | | | [address] | | + + + + + | Yina La | ECON | Unknown | | + + + + + | Yina Peterson | ECON | Unknown | | + + + + + | Leatha Casillas | ECON | Unknown | | + + + + + Care Team Providers + +------+ + | Care Lock Installer Name | Role | Phone | + +------+ + PCP | Unavailable | + +------+ + Encounter Details +--------+ + + + + | Date | Type | Department | Care Team | Description | +--------+ + + + + | 02/28/ | Hospital | [facility] | | | | 2006 | Encounter | MED CTR XRAY [address] | | | | | | [place] | | | | | | [place] [address] | | | | | | [phone] | | | +--------+ + + + [...]
--- OUTSIDE RECORDS SUMMARY | ~2019-08-24 | XMS | Encounter Summary ---
Demographics + + + | Address | [address] | | | [place] [address] | + + + | Home Phone [...] | [facility] | | | and [place] | + + + | Organization | [facility] | | | and [place] | + + + | Address | Unknown | + + + | Phone | Unavailable | + + + Support + + + + + | Name | Relationship | Address | Phone | + + + + + | [place] Tilley | ECON | [address] | | | | | [place], [place] | | | | | [address] | | + + + + + | Yina La | ECON | Unknown | | + + + + + | Yina Peterson | ECON | Unknown | | + + + + + | Leatha Casillas | ECON | Unknown | | + + + + + Care Team Providers + +------+ + | Care Cnc Operator Machinist Name | Role | Phone | + +------+ + PCP | Unavailable | + +------+ + Encounter Details +--------+ + + + + | Date | Type | Department | Care Team | Description | +--------+ + + + + | 11/08/ | Imaging | [facility] | Provider, | | | 2018 | Exam | [facility] | [address] | | | | | IMAGING | [address] | | | | | [phone] | [place] [address] | | +--------+ + + + + [...] for comparison only - no result from [place]. | [facility] | + + + + +---------+ + + | Performing | Address | City/State/Zipcode | Phone Number | | Organization | | | | + +---------+ + + | [facility] | | | | + +---------+ + + documented in this encounter Visit Diagnoses Not on filedocumented in this encounter"
--- OUTSIDE RECORDS SUMMARY | ~2019-08-24 | XMS | Encounter Summary ---
Demographics + + + | Address | [address] | | | [place] [address] | + + + | Home Phone [...] | Author | [facility] | | | and [place] | + + + | Organization | [facility] | | | and [place] | + + + | Address | Unknown | + + + | Phone | Unavailable | + + + Support + + + + + | Name | Relationship | Address | Phone | + + + + + | India Tilley | ECON | [address] | | | | | [place], [place] | | | | | [address] | | + + + + + | Yina La | ECON | Unknown | | + + + + + | Yina Peterson | ECON | Unknown | | + + + + + | Leatha Casillas | ECON | Unknown | | + + + + + Care Team Providers + +------+ + | Care Insole Rasper Name | Role | Phone | + [...] + + | 12/29/ | Telephone | [facility] | Santos Stephenson | Appointment | | 2017 | | SURGERY [address] | MD Kinga, FACS [address] | | | | | [place], [place] | [address] | | | | | [address] | [place] [address] | | | | | [phone] | [phone] | | | | | | | [...]
--- OUTSIDE RECORDS SUMMARY | ~2019-08-24 | XMS | Encounter Summary ---
Demographics + + + | Address | [address] | | | [place] [address] | + + + | Home Phone [...] | Author | [facility] | | | and [place] | + + + | Organization | [facility] | | | and [place] | + + + | Address | Unknown | + + + | Phone | Unavailable | + + + Support + + + + + | Name | Relationship | Address | Phone | + + + + + | India Tilley | ECON | [address] | | | | | [place], [place] | | | | | [address] | | + + + + + | Yina La | ECON | Unknown | | + + + + + | Yina Peterson | ECON | Unknown | | + + + + + | Leatha Casillas | ECON | Unknown | | + + + + + Care Team Providers + +------+ + | Care Nurse Sitter Name | Role | Phone | + +------+ + PCP | Unavailable | + +------+ + Encounter Details +--------+ + + + + | Date | Type | Department | Care Team | Description | +--------+ + + + + | 02/13/ | Hospital | [facility] | [facility], | | | 2007 - | Encounter | MED CTR CANCER | Venkatesh Forte MD [address] | | | | | [place] [address] | [facility] | | | 03/12/ | | [place], [place] | [place] [address] | | | 2007 | | [address] | [phone] | | | | | [phone] | | | +--------+ + + + [...]
--- OUTSIDE RECORDS SUMMARY | ~2019-08-24 | XMS | Encounter Summary ---
Demographics + + + | Address | [address] | | | [place] [address] | + + + | Home Phone [...] | Author | [facility] | | | and [place] | + + + | Organization | [facility] | | | and [place] | + + + | Address | Unknown | + + + | Phone | Unavailable | + + + Support + + + + + | Name | Relationship | Address | Phone | + + + + + | India Tilley | ECON | [address] | | | | | [place], [place] | | | | | [address] | | + + + + + | Yina La | ECON | Unknown | | + + + + + | Yina Peterson | ECON | Unknown | | + + + + + | Leatha Casillas | ECON | Unknown | | + + + + + Care Team Providers + +------+ + | Care Construction Contractor Name | Role | Phone | [...] | | | | renal | PA-C [address] | [address] [place] [address] | | | | | disease | | [address] | | | | | ([facility]) | CONFEDERATED | [address] | | | | | Procedures | WAY | [place] | | | | | ME OFFICE | [place], | [address] Phone: | | | | | OUTPATIENT | [place] [address] | [phone] | | | | | VISIT 25 | Phone: | Fax: | | | | | MINUTES | [phone] | [phone] | | | | | | Fax: | | | | | | | [phone] | | +--------+--------+ + + + + Encounter Details +--------+ + + + + | Date | Type | Department | Care Team | Description | +--------+ + + + + | 02/28/ | Off-Site | [facility] | Gopi Muñoz | End stage renal | | 2018 | Visit | NEPHROLOGY [address] | M, DO [address] | disease (HCC) | | | | [address] | [place], [place] [address] | (Primary Dx) | | | | [place] | [place] | | | | | [address] | [address] | | | | | [phone] | | | +--------+ + + + [...] + + + | Blood Pressure | 122/57 | 02/28/2018 7:22 PM | | | | | PDT | | + + + + + | Pulse | - | - | | + + + + + | Temperature | 36.4 C (97.5 F) | 02/28/2018 7:22 PM | | | | | PDT [...] this encounter Progress Gopi Pugh DO - 02/28/2018 12:15 PM PDT Subjective: DIALYSIS NOTE Patient ID: Estefani Tilley is a 72 y.o. female. HPI: Monthly dialysis visit for this pleasant, 72 YO Female with ESRD 2 to HTN and diabetic glomerulosclerosis at the [facility]. She also has depression, long standing HTN, Type 2 DM, requiring insulin, and CKD/MBD. She has had successful construction of an AVF in her Right arm on 01/04/2018 . She intermit tently is dysphoric here in dialysis. However she denies chest pain, cramps or pruritus. S he appears a spot about her home environment and visitation with her biological children. S he does not appear to elaborate. Outpatient Prescriptions Marked as Taking for the 02/28/18 encounter (Off-Site Visit) with Jessie Muñoz, DO [...] | Temp 36.2 C (97.2 F) EDW 75 kg Physical Exam Heart: Regular rate and rhythm with no S3, S4, murmur or rub. Lungs: CTA bilaterally. No rales or wheezes. Abdomen: soft, obese, nontender, NABS. Extremities: 1+ edema, clubbing, cyanosis. right arm AVF has a (+) bruit at the AVF. LAB: BUN 32, Cr 3.77, K+ 4.5, HCO3 25, Ca++ 9.1, phosphorus 4.7, albumin 3.3, PTH 245, Hb 11.8, spKT/V = 1.58 . Assessment: 1. ESRD-- clinically, she appears stable on 4 hours, 2K +, QB 300, thrice weekly. 2. Hypertension-- good control at current dry weight. 3. Anemia secondary CKD--will need to hold her EPO until Hb is <11.0 g/dl. She appears to have next response to the [employer] EPO-algorithm. 4. CKD/MBD-- her phosphorus control and PTH are excellent. She appears to do a good job w ith her diet. 5. Nutrition-- serum albumin is below target. Not clear exactly what her home environment is. I strongly encouraged Estefani to maximize her daily intake of high biological value pro tein, 3 times per day. I explained to her patiently, that serum albumin correlates closely with mortality in CKD p atients. 6. Transplantation--currently , she is too emotionally labile and lack family support. 7. Type 2 DM--will recheck HbA1c next month. 8. Depression--I think that she could benefit from formal counseling therapy? Plan: 1. Monthly lab was reviewed with the patient. 2. Again, I reinforced the need for a consistent intake of high biological value protein. 3. Will recheck her adequacy, PTH , HbA1c , and iron profile next month. 4. Will recheck her in 2 weeks. : [place]. Santos Stephenson MD, [facility] documented in thi s encounter Plan of Treatment Not on filedocumented as of this encounter Visit Diagnoses + + | Diagnosis | + + | End stage renal disease (HCC) - Primary End stage renal disease | + + documented in this encounter"
--- OUTSIDE RECORDS SUMMARY | ~2019-08-24 | XMS | Encounter Summary ---
Demographics + + + | Address | [address] | | | [place] [address] | + + + | Home Phone [...] Author | [facility] | | | and [place]it[place] | + + + | Organization | [facility] | | | and [place] | + + + | Address | Unknown | + + + | Phone | Unavailable | + + + Support + + + + + | Name | Relationship | Address | Phone | + + + + + | India Tilley | ECON | [address] | | | | | [place], [place] | | | | | [address] | | + + + + + | Yina La | ECON | Unknown | | + + + + + | Yina Peterson | ECON | Unknown | | + + + + + | Leatha Casillas | ECON | Unknown | | + + + + + Care Team Providers + +------+ + | Care Md Senior Research Scientist Name | Role | Phone | + +------+ + | Renato villarreal DIPESH | PCP | | + +------+ + Encounter Details +--------+ + + + + | Date | Type | Department | Care Team | Description | +--------+ + + + + | 08/16/ | Telephone | [facility] | Fransisco Johnston MD | | | 2019 | | CENTER INTRA OP | [address] | | | | | [address] | [facility] | | | | | [place], [place] | [place] [address] | | | | | [address] | [phone] | | | | | [phone] | | | +--------+ + + + [...]
--- OUTSIDE RECORDS SUMMARY | ~2019-08-24 | XMS | Encounter Summary ---
Demographics + + + | Address | [address] | | | [place] [address] | + + + | Home Phone [...] | [facility] | | | and [place] | + + + | Organization | [facility] | | | and [place] | + + + | Address | Unknown | + + + | Phone | Unavailable | + + + Support + + + + + | Name | Relationship | Address | Phone | + + + + + | India Tilley | ECON | [address] | | | | | [place], [place] | | | | | [address] | | + + + + + | Yina La | ECON | Unknown | | + + + + + | Yina Peterson | ECON | Unknown | | + + + + + | Leatha Casillas | ECON | Unknown | | + + + + + Care Team Providers + +------+ + | Care Print Line Feeder Name | Role | Phone | [...] | | | | | | ([facility]) | | | +--------+--------+ + + + [...] SCREWS | | | | [address] | [place] | | | | | [place] | [address] | | | | | [address] | | | | | | [phone] | | | +--------+---------+ + + + [...] Electronically signed by: Scott Koroma, 12/20/2018 12:05 [facility] Scott Koroma MD at 05/2019 12:10 PM PDTdocumented in this encounter Discharge Instructions Instructions Gopi Muñoz DO - . Please keep your old HD appt. at [facility] for 12/12/2018. 2. Call our Office if you change your mind and wish to go to [facility] , for further R ehab. 3. [...] might be d ifferent from the original. [facility] [address] [place] [address] PROGRESS NOTE Pt. Name/Age/: Estefani Tilley 73 y.o. 1945 Med. Record Number: [id number] Date of admission: 12/04/2018 NEPHROLOGY HPI - [...] HD tomorrow and assess for DC soon. [facility] Amol Green MD - 12/08/2018 3:29 PM [...] going to any Rehab. Ctr after DC. [facility] Scott Tadeo MD - 12/07/2018 8:56 AM [...] rick, DO - 12/06/2018 5:33 PM PDT [facility] [address] [place] [address] PROGRESS NOTE Pt. Name/Age/: Estefani Tilley 73 y.o. 1945 Med. Record Number: [id number] Date of admission: 12/04/2018 NEPHROLOGY HPI - [...] Lungs: Prolonged expiratory phase, with findings of Celeste rales lower 1/4 both lungs. Abdomen: Soft, [...] to go home when felt ap propriate [facility] Scott Tadeo MD - 12/06/2018 8:02 AM [...] and directions X Pharmacy list names: Mayco Johnsno (Emeterio) X Outside Information Vaccines up to [...] did not want to answer medication history windows deployment technician's questions; eluid ignacioifel d her name. Answered questions with head nods or patients stating that she was not taking a medication. Medication: Prior to Admission Sig: Patient taking differently RN TELE as: Atorvastatin 20 mg tablet Take 1 [...] idea what this medication was Best possible RN TELE medication list after pharmacy review: PT REPORTED [...] into the vein Three times a w samish. Historical Provider, epoetin karthik (EPOGEN, PROCRIT) 10,000 [...] performed and electronically signed by Kerry Jordan, Wort Extractor 12/05/2018 14:45 Reviewed by Flora Watts, PharmD [...] R?MRN: | | | | | | [id number] | | | [id number] | | | riteri | | | [...] | | | St. | | | [place] | | | y | | | [...] | | | [facility] | | | Mobile | | | 3 0 | | | [facility] | | | St[facility] | | | [place] | | | y | | | [...] | | | St. | | | [place] | | | y H. | | [...] | | e of | | | naknek | | | | | | mckeon [...] | | | St. | | | [place] | | | y H. | | [...] the | | | | | | supply crib attendant | | | al | | | [...] | | | St. | | | [place] | | | y H. | | [...] | | e of | | | naknek | | | | | | mckeon [...] | | | [facility] | | | Mobile | | | Mobile | | | ID | | | [...] | | | [facility] | | | Mobile | | | Mobile | | | ID | | | [...] | | | [facility] | | | Mobile | | | Mobile | | | ID | | | [...] | | | [facility] | | | Mobile | | | Mobile | | | ID | | | [...] | | | [facility] | | | Mobile | | | Mobile | | | ID | | | [...] | | | [facility] | | | [facility] | | | | | | HEALTH [...] | | | [id number] | | | [id number] | | | [address] | | | [...] + | [facility] | [address] | [place] | [phone] | | [facility] | | [address] | | | - LABORATORY | | [...] [address] | [place] | [phone] | | [facility] | | [address] | | | - LABORATORY | | [...] + | [facility] | [address] | [place] | [phone] | | [facility] | | [address] | | | - LABORATORY | | [...] | | POC | | | [facility] | | | | [...] [address] | [place] | [phone] | | [facility] | | [address] | | | - LABORATORY | | [...] [address] | [place] | [phone] | | [facility] | | [address] | | | - LABORATORY | | [...] [address] | [place] | [phone] | | [facility] | | [address] | | | - LABORATORY | | [...] ST. | [address] | [place], [place] | [phone] | | [facility] | | [address] | | | - LABORATORY | | [...] | nRBC | | K/uL | [facility] | | | | [...] [address] | [place] | [phone] | | [facility] | | [address] | | | - LABORATORY | | [...] + | [facility] | [address] | [place] | [phone] | | [facility] | | [address] | | | - LABORATORY | | [...] [address] | [place] | [phone] | | [facility] | | [address] | | | - LABORATORY | | [...] [address] | [place] | [phone] | | [facility] | | [address] | | | - LABORATORY | | [...] [address] | [place] | [phone] | | [facility] | | [address] | | | - LABORATORY | | [...] + | [facility] | [address] | [place] | [phone] | | [facility] | | [address] | | | - LABORATORY | | [...] | | A1c | | | [facility] | | | | [...] [address] | [place] | [phone] | | [facility] | | [address] | | | - LABORATORY | | [...] + | [facility] | [address] | [place] | [phone] | | [facility] | | [address] | | | - LABORATORY | | [...] [address] | [place] | [phone] | | [facility] | | [address] | | | - LABORATORY | | [...] [address] | [place] | [phone] | | [facility] | | [address] | | | - LABORATORY | | [...] + | [facility] | [address] | [place] | [phone] | | [facility] | | [address] | | | - LABORATORY | | [...] [address] | [place] | [phone] | | [facility] | | [address] | | | - LABORATORY | | [...] [address] | [place] | [phone] | | [facility] | | [address] | | | - LABORATORY | | [...] [address] | [place] | [phone] | | [facility] | | [address] | | | - LABORATORY | | [...] + | [facility] | [address] | [place] | [phone] | | [facility] | | [address] | | | - LABORATORY | | [...] mL/min/1.73m2 | [facility] | | | [place] | | | MEDICAL | | | [...] [address] | [place] | [phone] | | [facility] | | [address] | | | - LABORATORY | | [...] + | [facility] | [address] | [place] | [phone] | | [facility] | | [address] | | | - LABORATORY | | [...] [address] | [place] | [phone] | | [facility] | | [address] | | | - LABORATORY | | [...] + + | Performing | Address | City/State/[facility] Hospital[facility] | Phone Number | | Organization | | | | + + + + + | [facility] | [address] | [place] | [phone] | | [facility] | | [address] | | | - LABORATORY | | [...] [address] | [place] | [phone] | | [facility] | | [address] | | | - LABORATORY | | [...] + | [facility] | [address] | [place] | [phone] | | [facility] | | [address] | | | - LABORATORY | | [...] + | [facility] | [address] | [place] | [phone] | | [facility] | | [address] | | | - LABORATORY | | [...] [address] | [place] | [phone] | | [facility] | | [address] | | | - LABORATORY | | [...] mL/min/1.73m2 | [facility] | | | [place] | | | MEDICAL | | | [...] ST. | [address] | [place], [place] | [phone] | | [facility] | | [address] | | | - LABORATORY | | [...] [address] | [place] | [phone] | | [facility] | | [address] | | | - LABORATORY | | [...] scheduled: AC, NPO, Daytime | | | 3998-2830 Use NIGHT DOSE for | | | doses scheduled: HS, 3AM, | | | Nighttime 9415-0708, | | + +---+ | | | [...] | | | HR < 60, Starting Faber 12/04/18 at | | | | | [...]
--- OUTSIDE RECORDS SUMMARY | ~2019-08-24 | XMS | Encounter Summary ---
Demographics + + + | Address | [address] | | | [place] [address] | + + + | Home Phone [...] | Author | [facility] | | | and [place] | + + + | Organization | [facility] | | | and [place] | + + + | Address | Unknown | + + + | Phone | Unavailable | + + + Support + + + + + | Name | Relationship | Address | Phone | + + + + + | India Tilley | ECON | [address] | | | | | [place], [place] | | | | | [address] | | + + + + + | Yina La | ECON | Unknown | | + + + + + | Yina Peterson | ECON | Unknown | | + + + + + | Leatha Casillas | ECON | Unknown | | + + + + + Care Team Providers + +------+ + | Care Ore Storage Drier Name | Role | Phone | + [...] | | [address] | [place], [address] | ([facility]) (Primary Dx) | | | | [place], [place] | [place], [place] | | | | | [address] | [address] | | | | | [phone] | | | +--------+ + + + [...] PSTLabs for upcoming nephrology appointment [facility] signed by Celeste Butler RN at [...]
--- OUTSIDE RECORDS SUMMARY | ~2019-08-24 | XMS | Encounter Summary ---
Demographics + + + | Address | [address] | | | [place] [address] | + + + | Home Phone [...] Author | [facility] | | | and [place]it[place] | + + + | Organization | [facility] | | | and [place] | + + + | Address | Unknown | + + + | Phone | Unavailable | + + + Support + + + + + | Name | Relationship | Address | Phone | + + + + + | India Tilley | ECON | [address] | | | | | [place], [place] | | | | | [address] | | + + + + + | Yina La | ECON | Unknown | | + + + + + | Yina Peterson | ECON | Unknown | | + + + + + | Leatha Casillas | ECON | Unknown | | + + + + + Care Team Providers + +------+ + | Care Net Wpf Developer Name | Role | Phone | [...] + + | 06/03/ | Telephone | [facility] | Darlin Moseley W, | Dialysis | | 2018 | | NEPHROLOGY [address] | (Asymptomatic) | | | | [address] | [address] [place] | | | | | [place] | [place] [address] | | | | | [address] | [phone] | | | | | [phone] | | | +--------+ + + + [...]
--- OUTSIDE RECORDS SUMMARY | ~2019-08-24 | XMS | Encounter Summary ---
Demographics + + + | Address | [address] | | | [place] [address] | + + + | Home Phone [...] | Author | [facility] | | | and [place]al[place]it[place] | + + + | Organization | [facility] | | | and [place] | + + + | Address | Unknown | + + + | Phone | Unavailable | + + + Support + + + + + | Name | Relationship | Address | Phone | + + + + + | India Tilley | ECON | [address] | | | | | [place], [place] | | | | | [address] | | + + + + + | Yina La | ECON | Unknown | | + + + + + | Yina Peterson | ECON | Unknown | | + + + + + | Leatha Casillas | ECON | Unknown | | + + + + + Care Team Providers + +------+ + | Care Muffle Worker Name | Role | Phone | + +------+ + PCP | Unavailable | + +------+ + Encounter Details +--------+ + + + + | Date | Type | Department | Care Team | Description | +--------+ + + + + | 09/23/ | Hospital | [facility] | | | | 2006 - | Encounter | MED CTR CANCER | | | | | | CENTER [facility] [address] | | | | 10/13/ | | [place] | | | | 2006 | | [address] | | | | | | [phone] | | | +--------+ + + + [...]
--- OUTSIDE RECORDS SUMMARY | ~2019-08-24 | XMS | Encounter Summary ---
Demographics + + + | Address | [address] | | | [place] [address] | + + + | Home Phone [...] | Author | [facility] | | | and [place] | + + + | Organization | [facility] | | | and [place] | + + + | Address | Unknown | + + + | Phone | Unavailable | + + + Support + + + + + | Name | Relationship | Address | Phone | + + + + + | India Tilley | ECON | [address] | | | | | [place], [place] | | | | | [address] | | + + + + + | Yina La | ECON | Unknown | | + + + + + | Yina Peterson | ECON | Unknown | | + + + + + | Leatha Casillas | ECON | Unknown | | + + + + + Care Team Providers + +------+ + | Care Floor Assembler Name | Role | Phone | [...] + + | 06/01/ | Telephone | [facility] [place] | Darlin Moseley W, | Nephrology | | 2017 | | NEPHROLOGY [address] | [address] | Appointment | | | | [facility] | [address] [place] | | | | | [place] | [place] [address] | | | | | [address] | [phone] | | | | | [phone] | | | +--------+ + + + [...]
--- OUTSIDE RECORDS SUMMARY | ~2019-08-24 | XMS | Encounter Summary ---
Demographics + + + | Address | [address] | | | [place] [address] | + + + | Home Phone [...] Author | [facility] | | | and [place]al[place]it[place] | + + + | Organization | [facility] | | | and [place] | + + + | Address | Unknown | + + + | Phone | Unavailable | + + + Support + + + + + | Name | Relationship | Address | Phone | + + + + + | India Tilley | ECON | [address] | | | | | [place], [place] | | | | | [address] | | + + + + + | Yina La | ECON | Unknown | | + + + + + | Yina Peterson | ECON | Unknown | | + + + + + | Leatha Casillas | ECON | Unknown | | + + + + + Care Team Providers + +------+ + | Care Operations General Agent Name | Role | Phone | + +------+ + PCP | Unavailable | + +------+ + Encounter Details +--------+ + + + + | Date | Type | Department | Care Team | Description | +--------+ + + + + | 02/03/ | Hospital | [facility] | Scott Koroma, | Closed fracture of | | 2019 | Encounter | MED CTR DERICK XRAY | MD Nash SEPULVEDA | neck of right femur, | | | | [address] [place] | [place], [place] | initial encounter | | | | [place], [place] | [id number] | ([facility]); Right hip | | | | [address] | | pain; H/O major | | | | [phone] | | orthopedic surgery | +--------+ + [...] | | | | | | | ([facility]), Right hip | | | [...] section. | | | | | encounter ([facility]) | | | | | [...]
--- OUTSIDE RECORDS SUMMARY | ~2019-08-24 | XMS | Encounter Summary ---
Demographics + + + | Address | [address] | | | [place] [address] | + + + | Home Phone [...] | Author | [facility] | | | and Kamaljitana | + + + | Organization | [facility] | | | and [place] | + + + | Address | Unknown | + + + | Phone | Unavailable | + + + Support + + + + + | Name | Relationship | Address | Phone | + + + + + | India Tilley | ECON | [address] | | | | | [place], [place] | | | | | [address] | | + + + + + | Yina La | ECON | Unknown | | + + + + + | Yina Peterson | ECON | Unknown | | + + + + + | Leatha Casillas | ECON | Unknown | | + + + + + Care Team Providers + +------+ + | Care Theology Teacher Name | Role | Phone | [...] | renal | PA-C 2229 | [address] | | | | | disease | [address] | [place], [place] | | | | | ([facility]) | [place] | [address] [facility] | | | | | Procedures | [address] | [facility] [place] | | | | | [place] ESRD | [facility] | [address] Phone: | | | | | RELATED SV | [place] | [phone] | | | | | MONTHLY | [address] | Fax: | | | | | 20&/> YR OLD | Phone: | [phone] | | | | | 4/> VISITS | [phone] | | | | | | | Fax: | | | | | | | [phone] | | + +--------+ + + + + Encounter Details +--------+ + + + + | Date | Type | Department | Care Team | Description | +--------+ + + + + | 01/09/ | Off-Site | [facility] | Gopi Muñoz | End stage renal | | 2019 | Visit | NEPHROLOGY [address] | M, DO [address] | disease (HCC) | | | | [address] | [place], [place] [address] | (Primary Dx) | | | | [place] | [place], [place] | | | | | [address] | [address] | | | | | [phone] | | | +--------+ + + + [...] Y1 female who was seen at the [facility] [place] on the MWF shift. She is intermittently dysphoric. However sh e denies cramps, hiccups or nausea. She refused to go for rehab after ORIF of her hip at [facility] on 12/04/18. In addition, I [...] 11/03/2017 and then was DC to the [facility] at [place], [place]. Unfortunately, she h as had intermittent [...] by Gopi Muñoz DO. 01/15/19 14:57 CC: [facility] Scott Koroma MD [facility] [place], [place] tGopi rick DO - 01/09/2019 11:00 AM PD T documented in thi s encounter Plan of Treatment Not on filedocumented as of this encounter Visit Diagnoses + + | Diagnosis | + + | End stage renal disease (HCC) - Primary End stage renal disease | + + documented in this encounter
--- OUTSIDE RECORDS SUMMARY | ~2019-08-24 | XMS | Encounter Summary ---
Demographics + + + | Address | [address] | | | [place] [address] | + + + | Home Phone [...] + | Author | [facility] | | | and Kamaljitana | + + + | Organization | [facility] | | | and [place] | + + + | Address | Unknown | + + + | Phone | Unavailable | + + + Support + + + + + | Name | Relationship | Address | Phone | + + + + + | India Tilley | ECON | [address] | | | | | [place], [place] | | | | | [address] | | + + + + + | Yina La | ECON | Unknown | | + + + + + | Yina Peterson | ECON | Unknown | | + + + + + | Leatha Casillas | ECON | Unknown | | + + + + + Care Team Providers + +------+ + | Care Ecdis N Navigation Operator Name | Role | Phone | [...] | | | | renal | PA-C [address] | [address] [place] [address] | | | | | disease | | [place] | | | | | ([facility]) | CONFEDERATED | [address] | | | | | Procedures | WAY | [place] | | | | | [place] OFFICE | [place], | [address] Phone: | | | | | OUTPATIENT | [place] [address] | [phone] | | | | | VISIT 25 | Phone: | Fax: | | | | | MINUTES | [phone] | [phone] | | | | | | Fax: | | | | | | | [phone] | | +--------+--------+ + + + + Encounter Details +--------+ + + + + | Date | Type | Department | Care Team | Description | +--------+ + + + + | 04/25/ | [facility]-Site | [facility] | Gopi Muñoz | End stage renal | | 2018 | Visit | NEPHROLOGY [address] | M, DO [address] | disease (HCC) | | | | [address] | [place], [place] [address] | (Primary Dx) | | | | [place] | [place] | | | | | [address] | [address] | | | | | [phone] | | | +--------+ + + + [...] to HTN and diabetic glomerulosclerosis at the [facility]. She [...] in touch with the [facility] at the [facility], and she states that "she has not. " She will not provide a direct answer why she does not confer directly with [facility] for better resources? She de [...] candidate to get in touch with a match-e-be-nash-she-wish band payroll representative at the [facility] for some immediate madiha tance. 2. I [...] here in the [facility]. : [place]. Santos Stephenson MD, [facility] documented in thi s encounter Plan of Treatment Not on filedocumented as of this encounter Visit Diagnoses + + | Diagnosis | + + | End stage renal disease (HCC) - Primary End stage renal disease | + + documented in this encounter
--- OUTSIDE RECORDS SUMMARY | ~2019-08-24 | XMS | Encounter Summary ---
Demographics + + + | Address | [address] | | | [place] [address] | + + + | Home Phone [...] | Author | [facility] | | | and [place]jit[place] | + + + | Organization | [facility] | | | and [place] | + + + | Address | Unknown | + + + | Phone | Unavailable | + + + Support + + + + + | Name | Relationship | Address | Phone | + + + + + | India Tilley | ECON | [address] | | | | | [place], [place] | | | | | [address] | | + + + + + | Yina La | ECON | Unknown | | + + + + + | Yina Peterson | ECON | Unknown | | + + + + + | Leatha Casillas | ECON | Unknown | | + + + + + Care Team Providers + +------+ + | Care Lumber Sticker Name | Role | Phone | + [...] | Surgery | kidney | DO [address] | [address] | | | | | disease, | [place], [place] | [address] | | | | | stage V | [address] | [place], | | | | | ([facility]) | [place] | [place] [address] | | | | | | [address] | Phone: | | | | | | Phone: | [phone] | | | | | | [phone] | Fax: | | | | | | Fax: | [phone] | | | | | | [phone] | | +--------+ + + + + + Encounter Details +--------+---------+ + + + | Date | Type | Department | Care Team | Description | +--------+---------+ + + + | 04/04/ | Office | [facility] | Santos Stephenson | Chronic kidney | | 2018 | Visit | SURGERY [address] | MD Kinga, FACS [address] | disease, stage V | | | | [place], [place] | [address] [facility] | (HCC) (Primary Dx) | | | | [address] | [place] [address] | | | | | [phone] | [phone] | | | | | | | [...] Placement; Surgeon: Nora Leo MD; Location : [facility] MAIN OR SHUNT PLACEMENT/INSERTION Right 02/04/2018 Procedure: INSERTION SHUNT HEMODIALYSIS W/ PERMACATH; Surgeon: Heather Navarro MD; L ocation: [facility] MAIN OR VEIN SURGERY Right 01/04/2018 Procedure: Right Transposed Basilic Vein to Proximal Radial Artery; Surgeon: Santos Stephenson MD, FACS; Location: [facility] MAIN OR Allergies Allergen Reactions Lisinopril [...] can shower tomorrow. Patient to follow with pyroglazer and primary care. I will be available [...]
--- OUTSIDE RECORDS SUMMARY | ~2019-08-24 | XMS | Encounter Summary ---
Demographics + + + | Address | [address] | | | [place] [address] | + + + | Home Phone [...] Author | [facility] | | | and Kamaljitana | + + + | Organization | [facility] | | | and [place] | + + + | Address | Unknown | + + + | Phone | Unavailable | + + + Support + + + + + | Name | Relationship | Address | Phone | + + + + + | India Tilley | ECON | [address] | | | | | [place], [place] | | | | | [address] | | + + + + + | Yina La | ECON | Unknown | | + + + + + | Yina Peterson | ECON | Unknown | | + + + + + | Leatha Casillas | ECON | Unknown | | + + + + + Care Team Providers + +------+ + | Care Chief Station Engineer Name | Role | Phone | [...] | Surgery | kidney | DO [address] | [address] | | | | | disease, | [place], [place] | [address] | | | | | stage V | [address] | [place], | | | | | ([facility]) | [facility], [place] | [place] [address] | | | | | | [address] | Phone: | | | | | | Phone: | [phone] | | | | | | [phone] | Fax: | | | | | | Fax: | [phone] | | | | | | [phone] | | +--------+ + + + + + Encounter Details +--------+---------+ + + + | Date | Type | Department | Care Team | Description | +--------+---------+ + + + | 01/10/ | Office | [facility] | Santos Stephenson | Chronic kidney | | 2018 | Visit | SURGERY [address] | MD Glenn FACS [address] | disease, stage V | | | | [place], [place] | [address] | (HCC) (Primary Dx); | | | | [address] | [place] [address] | Post-operative state | | | | [phone] | [phone] | | | | | | | [...] Surgeon: Nora Leo MD; Location : [facility] MAIN OR VEIN SURGERY Right 01/04/2018 Procedure: Right Transposed Basilic Vein to Proximal Radial Artery; Surgeon: Santos Stephenson MD, FACS; Location: [facility] MAIN OR Allergies Allergen Reactions Lisinopril [...] + | Chronic kidney disease, stage V ([facility]) - Primary Chronic kidney disease, Stage V | + + | Post-operative state Other postprocedural status | + + documented in this encounter
--- OUTSIDE RECORDS SUMMARY | ~2019-08-24 | XMS | Encounter Summary ---
Demographics + + + | Address | [address] | | | [place] [address] | + + + | Home Phone [...] Author | [facility] | | | and [place]it[place] | + + + | Organization | [facility] | | | and [place] | + + + | Address | Unknown | + + + | Phone | Unavailable | + + + Support + + + + + | Name | Relationship | Address | Phone | + + + + + | India Tilley | ECON | [address] | | | | | [place], [place] | | | | | [address] | | + + + + + | Yina La | ECON | Unknown | | + + + + + | Yina Peterson | ECON | Unknown | | + + + + + | Leatha Casillas | ECON | Unknown | | + + + + + Care Team Providers + +------+ + | Care Sample Room Supervisor Name | Role | Phone | + +------+ + PCP | Unavailable | + +------+ + Encounter Details +--------+ + + + + | Date | Type | Department | Care Team | Description | +--------+ + + + + | 11/08/ | Imaging | [facility] | Provider, | | | 2018 | Exam | MED CTR EXTERNAL | [address] | | | | | IMAGING | [address] | | | | | [phone] | [place] [address] | | +--------+ + + + + [...] for comparison only - no result from [facility]. | [facility] | + + + + +---------+ + + | Performing | Address | City/State/Zipcode | Phone Number | | Organization | | | | + +---------+ + + | [facility] | | | | + +---------+ + + documented in this encounter Visit Diagnoses Not on filedocumented in this encounter"
--- OUTSIDE RECORDS SUMMARY | ~2019-08-24 | XMS | Encounter Summary ---
Demographics + + + | Address | [address] | | | [place] [address] | + + + | Home Phone [...] | [facility] | | | and [place] | + + + | Organization | [facility] | | | and [place] | + + + | Address | Unknown | + + + | Phone | Unavailable | + + + Support + + + + + | Name | Relationship | Address | Phone | + + + + + | India Tilley | ECON | [address] | | | | | [place], [place] | | | | | [address] | | + + + + + | Yina La | ECON | Unknown | | + + + + + | Yina Peterson | ECON | Unknown | | + + + + + | Leatha Casillas | ECON | Unknown | | + + + + + Care Team Providers + +------+ + | Care Electrician Chief Name | Role | Phone | [...] | (Primary Dx); | | | | [place], [place] | [place] [address] | Arthritis; Other | | | | [address] | [phone] | back pain; History | | | | [phone] | | of blood clots; | | [...]
--- OUTSIDE RECORDS SUMMARY | ~2019-08-24 | XMS | Encounter Summary ---
Demographics + + + | Address | [address] | | | [place] [address] | + + + | Home Phone [...] + | Author | [facility] | | | and [place]it[place] | + + + | Organization | [facility] | | | and [place] | + + + | Address | Unknown | + + + | Phone | Unavailable | + + + Support + + + + + | Name | Relationship | Address | Phone | + + + + + | India Tilley | ECON | [address] | | | | | [place], [place] | | | | | [address] | | + + + + + | Yina La | ECON | Unknown | | + + + + + | Yina Peterson | ECON | Unknown | | + + + + + | Leatha Casillas | ECON | Unknown | | + + + + + Care Team Providers + +------+ + | Care Disaster Recovery Coordinator Name | Role | Phone | + +------+ + | Renato Pierson BORDER PATROL OFFICER | PCP | | + +------+ + Encounter Details +--------+ + + + + | Date | Type | Department | Care Team | Description | +--------+ + + + + | 05/18/ | Orders Only | [facility] | Maribeth Vaughan | 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 | | [address] | Y, Mechanical Fitter | intervertebral disc | | | | [place] | | (pyogenic), thoracic | | | | [address] | | region ([facility]); | | | | [phone] | | Osteomyelitis of | | | | | | thoracic vertebra | | | | | | ([facility]) | +--------+ + + [...] section. | | | | | region ([facility]) | | [...] section. | | | | | region ([facility]) | | | | | | Osteomyelitis of | | | | | | thoracic vertebra | | | | | | ([facility]) | | + +--------+ + + + | C-REACTIVE PROTEIN | Routin | 05/18/2019 | Infection of | Results for this | | | e | 3:45 PM | intervertebral disc | procedure are in the | | | | PDT | (pyogenic), thoracic | results section. | | | | | region ([facility]) | | | | | | Osteomyelitis of | | | | | | thoracic vertebra | | | | | | ([facility]) | | + +--------+ + + + | COMPREHENSIVE | Routin | 05/18/2019 | Infection of | Results for this | | METABOLIC PANEL | e | 3:45 PM | intervertebral disc | procedure are in the | | | | PDT | (pyogenic), thoracic | results section. | | | | | region ([facility]) | | | | | | Osteomyelitis of | | | | | | thoracic vertebra | | | | | | ([facility]) | | + +--------+ + + + | CULTURE, BLOOD | Routin | 05/18/2019 | Infection of | Results for this | | | e | 3:08 PM | intervertebral disc | procedure are in the | | | | PDT | (pyogenic), thoracic | results section. | | | | | region ([facility]) | | | | | | Osteomyelitis of | | | | | | thoracic vertebra | | | | | | ([facility]) | | + +--------+ [...] | | | Absolute | performed at [facility];[address] | [address] | LAB | | | | [place] | | [facility] | | | | [address];[place] [address] | | LABORATORY | | + + + + + + + + | Specimen | + + | Blood | + + + + + + + | Performing | Address | City/State/Zipcode | Phone Number | | Organization | | | | + + + + + | REFERENCE LAB | [address] | [place] [address] | [phone] | | [facility] | Blvd[address] | | | | LABORATORY | | | | + + + + + | REFERENCE LAB | [address] | [place] [address] | | | [facility] | Blvd[address] | [...] | | | | | performed at [facility];[address] | | | | | | [address] | | | | | | [place];[place] [address] | | | | | | | | | | + + + + + + + + | Specimen | + + | Blood | + + + + + + + | Performing | Address | City/State/Zipcode | Phone Number | | Organization | | | | + + + + + | REFERENCE LAB | [address] | [place] [address] | [phone] | | [facility] | Blvd. | | | | LABORATORY | | | | + + + + + | REFERENCE LAB | [address] | [place] [address] | | | [facility] | Blvd. | [...] REFERENCE | | | | performed at [facility];[address] | | LAB | | | | [place] | | [facility] | | | | Blvd;[place] [address] | | LABORATORY | | + + + + + + + + | Specimen | + + | Blood | + + + + + + + | Performing | Address | City/State/Zipcode | Phone Number | | Organization | | | | + + + + + | REFERENCE LAB | [address] [place] [address] | [place] [address] | [phone] | | [facility] | Blvd. | | | | LABORATORY | | | | + + + + + | REFERENCE LAB | [address] [place] [address] | [place] [address] | | | [facility] | Blvd. | [...] REFERENCE | | | | performed at [facility];[address] | | LAB | | | | [place] | | [facility] | | | | [address];[place] [address] | | LABORATORY | | + + + + + + + + | Specimen | + + | Blood | + + + + + + + | Performing | Address | City/State/Zipcode | Phone Number | | Organization | | | | + + + + + | REFERENCE LAB | [address] | [place] [address] | [phone] | | [facility] | Blvd. | | | | LABORATORY | | | | + + + + + | REFERENCE LAB | [address] | [place] [address] | | | [facility] | Blvd. | [...] REFERENCE | | | | [facility];[address] [facility] [address] | | LAB | | | | Blvd;[place] | | [facility] | | | | [id number]: Testing | | LABORATORY | | | | performed at [facility], [address] | | | | | | [address], | | | | | | [place] [address] | | | | + + + [...] + | REFERENCE LAB | [address] [facility] | [place] [address] | [phone] | | [facility] | Blvd. | | | | LABORATORY | | | | + + + + + | REFERENCE LAB | [address] | [place] [address] | | | [facility] | Blvd. | | | | LABORATORY [...]
--- OUTSIDE RECORDS SUMMARY | ~2019-08-24 | XMS | Encounter Summary ---
Demographics + + + | Address | [address] | | | [place] [address] | + + + | Home Phone [...] + | Author | [facility] | | | and Kamaljitana | + + + | Organization | [facility] | | | and [place] | + + + | Address | Unknown | + + + | Phone | Unavailable | + + + Support + + + + + | Name | Relationship | Address | Phone | + + + + + | India Tilley | ECON | [address] | | | | | [place], [place] | | | | | [address] | | + + + + + | Yina La | ECON | Unknown | | + + + + + | Yina Peterson | ECON | Unknown | | + + + + + | Leatha Casillas | ECON | Unknown | | + + + + + Care Team Providers + +------+ + | Care Fagot Heater Helper Name | Role | Phone | + +------+ + PCP | Unavailable | + +------+ + Encounter Details +--------+ + + + + | Date | Type | Department | Care Team | Description | +--------+ + + + + | 10/27/ | Abstract | [facility] | Gopi Muñoz | | | 2017 | | NEPHROLOGY [address] | M, DO [address] | | | | | [address] [facility] [address] | [place], [facility] [address] | | | | | [place], [place] | [place] | | | | | [address] | [address] | | | | | [phone] | | | +--------+ + + + [...]
--- OUTSIDE RECORDS SUMMARY | ~2019-08-24 | XMS | Encounter Summary ---
Demographics + + + | Address | [address] | | | [place] [address] | + + + | Home Phone [...] | Author | [facility] | | | and [place]aljitana | + + + | Organization | [facility] | | | and [place] | + + + | Address | Unknown | + + + | Phone | Unavailable | + + + Support + + + + + | Name | Relationship | Address | Phone | + + + + + | India Tilley | ECON | [address] | | | | | [place], [place] | | | | | [address] | | + + + + + | Yina La | ECON | Unknown | | + + + + + | Yina Peterson | ECON | Unknown | | + + + + + | Leatha Casillas | ECON | Unknown | | + + + + + Care Team Providers + +------+ + | Care Wireline Supervisor Name | Role | Phone | + +------+ + PCP | Unavailable | + +------+ + Encounter Details +--------+ + + + + | Date | Type | Department | Care Team | Description | +--------+ + + + + | 10/14/ | Hospital | [facility] | | | | 2006 - | Encounter | MED CTR CANCER | | | | | | CENTER [facility] [address] | | | | 11/10/ | | [place] | | | | 2006 | | [address] | | | | | | [phone] | | | +--------+ + + + [...]
--- OUTSIDE RECORDS SUMMARY | ~2019-08-24 | XMS | Encounter Summary ---
Demographics + + + | Address | [address] | | | [place] [address] | + + + | Home Phone [...] | Author | [facility] | | | and Kamaljitana | + + + | Organization | [facility] | | | and [place] | + + + | Address | Unknown | + + + | Phone | Unavailable | + + + Support + + + + + | Name | Relationship | Address | Phone | + + + + + | India Tilley | ECON | [address] | | | | | [place], [place] | | | | | [address] | | + + + + + | Yina La | ECON | Unknown | | + + + + + | Yina Peterson | ECON | Unknown | | + + + + + | Leatha Casillas | ECON | Unknown | | + + + + + Care Team Providers + +------+ + | Care Lip Cutter Name | Role | Phone | + +------+ + PCP | Unavailable | + +------+ + Encounter Details +--------+ + + + + | Date | Type | Department | Care Team | Description | +--------+ + + + + | 10/04/ | Abstract | [facility] | Darlin Moseley W, | | | 2017 | | NEPHROLOGY [address] | [address] | | | | | [address] | [address] [facility] | | | | | [place] | [place] [address] | | | | | [address] | [phone] | | | | | [phone] | | | +--------+ + + + [...]
--- OUTSIDE RECORDS SUMMARY | ~2019-08-24 | XMS | Encounter Summary ---
Demographics + + + | Address | [address] | | | [place] [address] | + + + | Home Phone [...] Author | [facility] | | | and [place]jit[place] | + + + | Organization | [facility] | | | and [place] | + + + | Address | Unknown | + + + | Phone | Unavailable | + + + Support + + + + + | Name | Relationship | Address | Phone | + + + + + | India Tilley | ECON | [address] | | | | | [place], [place] | | | | | [address] | | + + + + + | Yina La | ECON | Unknown | | + + + + + | Yina Peterson | ECON | Unknown | | + + + + + | Leatha Casillas | ECON | Unknown | | + + + + + Care Team Providers + +------+ + | Care Chemical Dependency Attendant Name | Role | Phone | [...] | Surgery | kidney | DO [address] | [address] | | | | | disease, | [place], [place] | [address] | | | | | stage V | [address] | [place], | | | | | ([facility]) | [place] | [place] [address] | | | | | | [address] | Phone: | | | | | | Phone: | [phone] | | | | | | [phone] | Fax: | | | | | | Fax: | [phone] | | | | | | [phone] | | +--------+ + + + + + Encounter Details +--------+---------+ + + + | Date | Type | Department | Care Team | Description | +--------+---------+ + + + | 12/30/ | Office | [facility] | Santos Stephenson | Chronic kidney | | 2018 | Visit | SURGERY [address] | MD Kinga, FACS [address] | disease, stage V | | | | [place], [place] | [address] [facility] | (HCC) (Primary Dx) | | | | [address] | [place] [address] | | | | | [phone] | [phone] | | | | | | | [...] Same Day Surgery (corner of [address]) at 12:00pm. Your surgery is called AV [...] successful and comfortable surgery. Sign up for [employer] if you want easy access to your medical information online. You can: Review your medications, immunizations, allergies and medical history. View details of your past and upcoming appointments. Sign up for [employer] if you want easy access to your medical information online. Only you, your doctor and your health care team are permitted to view the information sent through [employer]. Through [employer] you can: ? Review your medications, immunizations, [...] different ways you can sign up for [employer]: ? The first way is to get online at: [email or web address] and sign up directly throug h the website prior to your appointment with us. You can call [phone] ([phone]) if you have any questions or need assistance. ? The second way is through the [employer] lyudmila which can be accessed with any smart phone. Ju st go to your lyudmila store and look up [employer]. ? The third way is to do [...] ? Francisca Womack PA-C Who is your Oncology Nurse Navigator/Kidney Specialist ? Dr. Muñoz When was the [...] dialysis on Wednesday, Wednesday and Fridays in [place]. She states she has had breast cancer, had a LEFT side mastectomy. CARDIAC: Denies NE, chest pain or tightness. RISK: Never smoker, current 38 year diabetic. Family Hx of diabetes. States mother had kid cedric failure NICO: Patient has previously been diagnosed with sleep apnea. She had a sleep study performe d at [facility] but does not wear a CPAP [...] Placement; Surgeon: Nora Leo MD; Location : [facility] MAIN OR Allergies Allergen Reactions [...] REPORT: PATIENT NAME : Estefani Tilley EQUIPMENT: DepotPoint-exoro systemo with 10-5 mHertz probe. INDICATIONS: Dialysis access [...] 2018 Return to clinic Post op. Santos Stehpenson MD, FACS Vascular and General Surgery I [...]
--- OUTSIDE RECORDS SUMMARY | ~2019-08-24 | XMS | Encounter Summary ---
Demographics + + + | Address | [address] | | | [place] [address] | + + + | Home Phone [...] & [facility] | | | and [place]jit[place] | + + + | Organization | [facility] | | | and [place] | + + + | Address | Unknown | + + + | Phone | Unavailable | + + + Support + + + + + | Name | Relationship | Address | Phone | + + + + + | India Tilley | ECON | [id number] | | | | | [place], [place] | | | | | [address] | | + + + + + | Yina La | ECON | Unknown | | + + + + + | Yina Peterson | ECON | Unknown | | + + + + + | Leatha Casillas | ECON | Unknown | | + + + + + Care Team Providers + +------+ + | Care Manager Wound Care Name | Role | Phone | + [...] | [address] | [address], [place] | (moderate) (Primary | | | | [place], [place] | [address] [place], [place] | Dx) | | | | [address] | [address] | | | | | [phone] | | | +--------+ + + + [...] 03/23/2017 2:38 PM PDTRenal Ultrasound scheduled at [facility] on 03/29/17 at 10 AM. docu mented in this encounter Plan of Treatment Not on filedocumented as of this encounter Visit Diagnoses + + | Diagnosis | + + | Chronic kidney disease, stage III (moderate) (HCC) - Primary Chronic kidney disease, | | Stage III (moderate) | + + documented in this encounter"
--- OUTSIDE RECORDS SUMMARY | ~2019-08-24 | XMS | Encounter Summary ---
Demographics + + + | Address | [address] | | | [place] [address] | + + + | Home Phone [...] + | Author | [facility] | | | and [place]it[place] | + + + | Organization | [facility] | | | and [place] | + + + | Address | Unknown | + + + | Phone | Unavailable | + + + Support + + + + + | Name | Relationship | Address | Phone | + + + + + | India Tilley | ECON | [address] | | | | | [place], [place] | | | | | [address] | | + + + + + | Yina La | ECON | Unknown | | + + + + + | Yina Peterson | ECON | Unknown | | + + + + + | Leatha Casillas | ECON | Unknown | | + + + + + Care Team Providers + +------+ + | Care Ic Design Engineer Name | Role | Phone | + +------+ + PCP | Unavailable | + +------+ + Reason for Visit + + + | Reason | Comments | + + + | Referral | [facility] | + + + Encounter Details +--------+ + + + + | Date | Type | Department | Care Team | Description | +--------+ + + + + | 05/26/ | Documentati | [facility] | Carlos Jansen, | Referral ([facility] | | 2019 | on | INFECTIOUS DISEASES | MD [address] | [facility] | | | | [address] | [place] [address] | lohman) | | | | [place] | [phone] | | | | | [address] | | | | | | [phone] | | | +--------+ + + + [...] 11:27 AM PDTReferral was received 05/18 from [facility] requesting to change ID docs from Dr Min to Dr Jansen per Dr Muñoz's reque st for patient's osteomyelitis. Patient saw Dr Jansen [facility] and upon d/c she was moved [...] home. I faxed back his note to [phone]. I did not enter a referral to avoid confusion with anna magaña current referral for [facility]. Will discard additional records in 30 days. documented in this encou nter Plan of Treatment Not on filedocumented as of this encounter Visit Diagnoses Not on filedocumented in this encounter"
--- OUTSIDE RECORDS SUMMARY | ~2019-08-24 | XMS | Encounter Summary ---
Demographics + + + | Address | [address] | | | [place] [address] | + + + | Home Phone [...] | Author | [facility] | | | and [place]it[place] | + + + | Organization | [facility] | | | and [place] | + + + | Address | Unknown | + + + | Phone | Unavailable | + + + Support + + + + + | Name | Relationship | Address | Phone | + + + + + | India Tilley | ECON | [address] | | | | | [place], [place] | | | | | [address] | | + + + + + | Yina La | ECON | Unknown | | + + + + + | Yina Peterson | ECON | Unknown | | + + + + + | Leatha Casillas | ECON | Unknown | | + + + + + Care Team Providers + +------+ + | Care Spinning Lathe Operator Name | Role | Phone | [...] | | | | renal | PA-C [address] | [address] [place] [address] | | | | | disease | | [address] [address] | | | | | ([facility]) | CON[facility]ATED | [address] | | | | | Procedures | WAY | [place] | | | | | [place] OFFICE | [place], | [address] Phone: | | | | | OUTPATIENT | [place] [address] | [phone] | | | | | VISIT 25 | Phone: | Fax: | | | | | [place] | [phone] | [phone] | | | | | ESRD RELATED | Fax: | | | | | | SVC MONTHLY | [phone] | | | | | | 20&/> YR | | | | | | | OLD 4/> | | | | | | | VISITS | | | +--------+--------+ + + + + Encounter Details +--------+ + + + + | Date | Type | Department | Care Team | Description | +--------+ + + + + | 08/22/ | Off-Site | [facility] | Gopi Muñoz | End stage renal | | 2018 | Visit | NEPHROLOGY [address] | M, DO [address] | disease (HCC) | | | | [address] | [place] [address] | (Primary Dx) | | | | [place], [place] | [place], [place] | | | | | [address] | [address] | | | | | [phone] | | | +--------+ + + + [...]
--- OUTSIDE RECORDS SUMMARY | ~2019-08-24 | XMS | Encounter Summary ---
Demographics + + + | Address | [address] | | | [place] [address] | + + + | Home Phone [...] Author | [facility] | | | and [place]al[place]it[place] | + + + | Organization | [facility] | | | and [place] | + + + | Address | Unknown | + + + | Phone | Unavailable | + + + Support + + + + + | Name | Relationship | Address | Phone | + + + + + | India Tilley | ECON | [address] | | | | | [place], [place] | | | | | [address] | | + + + + + | Yina La | ECON | Unknown | | + + + + + | Yina Peterson | ECON | Unknown | | + + + + + | Leatha Casillas | ECON | Unknown | | + + + + + Care Team Providers + +------+ + | Care Ceramic Maker Demonstrator Name | Role | Phone | + +------+ + PCP | Unavailable | + +------+ + Encounter Details +--------+ + + + + | Date | Type | Department | Care Team | Description | +--------+ + + + + | 07/26/ | Hospital | [facility] | Anna Banegas MD | Unspecified Backache | | 2006 | Encounter | CON[address] | [address] | | | | | [address] | [place], [place] | | | | | [place], [place] | [id number] | | | | | [address] | | | | | | [phone] | | | +--------+ + + + [...]
--- OUTSIDE RECORDS SUMMARY | ~2019-08-24 | XMS | Encounter Summary ---
Demographics + + + | Address | [address] | | | [place] [address] | + + + | Home Phone [...] | Author | [facility] | | | and [place]it[place] | + + + | Organization | [facility] | | | and [place] | + + + | Address | Unknown | + + + | Phone | Unavailable | + + + Support + + + + + | Name | Relationship | Address | Phone | + + + + + | India Tilley | ECON | [address] | | | | | [place], [place] | | | | | [address] | | + + + + + | Yina La | ECON | Unknown | | + + + + + | Yina Peterson | ECON | Unknown | | + + + + + | Leatha Casillas | ECON | Unknown | | + + + + + Care Team Providers + +------+ + | Care Top Cutter Name | Role | Phone | [...] | renal | PA-C [address] | [address] | | | | | disease | [address] | [place], [place] | | | | | ([facility]) | [place] | [address] [facility] | | | | | Procedures | [address] | [facility] [place] | | | | | ID ESRD | [facility] | [address] Phone: | | | | | RELATED [place] | [place] | [phone] | | | | | MONTHLY | [address] | Fax: | | | | | 20&/> YR OLD | Phone: | [phone] | | | | | 4/> VISITS | [phone] | | | | | | | Fax: | | | | | | | [phone] | | + +--------+ + + + + Encounter Details +--------+ + + + + | Date | Type | Department | Care Team | Description | +--------+ + + + + | 01/09/ | Off-Site | [facility] | Gopi Muñoz | End stage renal | | 2019 | Visit | NEPHROLOGY [address] | M, DO [address] | disease (HCC) | | | | [address] | [place], [address] | (Primary Dx) | | | | [place] | [place], [place] | | | | | [address] | [address] | | | | | [phone] | | | +--------+ + + + [...] Y1 female who was seen at the [facility] [place] on the MWF shift. She is intermittently dysphoric. However sh e denies cramps, hiccups or nausea. She refused to go for rehab after ORIF of her hip [facility] on 12/04/18. In addition, I personally [...] 11/03/2017 and then was DC to the [facility] [place]. Unfortunately, she h as had intermittent [...] by Gopi Muñoz DO. 01/15/19 14:57 CC: [facility] Scott Koroma MD [facility] [place], [place] tGopi rick DO - 01/09/2019 11:00 AM PD T documented in thi s encounter Plan of Treatment Not on filedocumented as of this encounter Visit Diagnoses + + | Diagnosis | + + | End stage renal disease (HCC) - Primary End stage renal disease | + + documented in this encounter
--- OUTSIDE RECORDS SUMMARY | ~2019-08-24 | XMS | Encounter Summary ---
Demographics + + + | Address | [address] | | | [place] [address] | + + + | Home Phone [...] + + | Author | [facility] | | | and [place] | + + + | Organization | [facility] | | | and [place] | + + + | Address | Unknown | + + + | Phone | Unavailable | + + + Support + + + + + | Name | Relationship | Address | Phone | + + + + + | India Tilley | ECON | [address] | | | | | [place], [place] | | | | | [address] | | + + + + + | Yina La | ECON | Unknown | | + + + + + | Yina Peterson | ECON | Unknown | | + + + + + | Leatha Casillas | ECON | Unknown | | + + + + + Care Team Providers + +------+ + | Care Customs Inspector Name | Role | Phone | + +------+ + PCP | Unavailable | + +------+ + Encounter Details +--------+ + + + + | Date | Type | Department | Care Team | Description | +--------+ + + + + | 11/08/ | [facility] | [facility] | Provider, | | | 2018 | Exam | MED CTR EXTER[facility] | MD [address] | | | | | IMAGING | [address] | | | | | [phone] | [place] [address] | | +--------+ + + + + [...] for comparison only - no result from [place]. | [facility] | + + + + +---------+ + + | Performing | Address | City/State/Zipcode | Phone Number | | Organization | | | | + +---------+ + + | [facility] | | | | + +---------+ + + documented in this encounter Visit Diagnoses Not on filedocumented in this encounter"
--- OUTSIDE RECORDS SUMMARY | ~2019-08-24 | XMS | Encounter Summary ---
Demographics + + + | Address | [address] | | | [place] [address] | + + + | Home Phone [...] Author | [facility] | | | and [place] | + + + | Organization | [facility] | | | and [place] | + + + | Address | Unknown | + + + | Phone | Unavailable | + + + Support + + + + + | Name | Relationship | Address | Phone | + + + + + | India Tilley | ECON | [address] | | | | | [place], [place] | | | | | [address] | | + + + + + | Yina La | ECON | Unknown | | + + + + + | Yina Peterson | ECON | Unknown | | + + + + + | Leatha Casillas | ECON | Unknown | | + + + + + Care Team Providers + +------+ + | Care Chainstitch Binder Name | Role | Phone | + [...] | Infection | Nick Miller | [address]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 | [place], | [place], | | | | | 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 [address] | [place] [address] | | | | | al disc | [address] | Phone: | | | | | (pyogenic), | [place], [place] | [phone] | | | | | thoracic | [address] | Fax: | | | | | region (HCC) | Phone: | [phone] | | | | | | [phone] | | | | | | 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: | | | | | | s of | [phone] | | | | | | thoracic [...] + + | 06/13/ | Office | [facility] | Fabiana Miller, | 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 Stephenson SHUNT PLACEMENT/INSERTION N/A 11/08/2017 Procedure: Tunneled Hemodialysis Catheter Placement; Surgeon: Nora Leo MD; Location : [facility] MAIN OR SHUNT PLACEMENT/INSERTION Right 02/04/2018 Procedure: INSERTION SHUNT HEMODIALYSIS W/ PERMACATH; Surgeon: Heather Navarro MD; L ocation: [facility] MAIN OR VEIN SURGERY Right 01/04/2018 Procedure: Right Transposed Basilic Vein to Proximal Radial Artery; Surgeon: Santos Stephenson MD, FACS; Location: [facility] MAIN OR SOCIAL HISTORY Social History [...] receive any antibiotic therapy intravenously at the [facility]. She was educated about the risks of permanent central line and risk of bacteremia. We are hoping to get her repeat CT-guided procedure within the next 7 days. The patient wi shes to do this in [place] and we will explore that possibility, otherwise she was expla ined that she has to come to the [facility]. Side effects of medications, duration of therapy, [...] REFERENCE | | | | performed at [facility];[address] | | LAB | | | | [place] | | [facility] | [address];[place] [address] | | LABORATORY | | + + + + + + + + | Specimen | + + | Blood | + + + + + + + | Performing | Address | City/State/Zipcode | Phone Number | | Organization | | | | + + + + + | REFERENCE LAB | [address] | [place] [address] | [phone] | | [facility] | Bl[address] | | | | LABORATORY | | | | + + + + + | REFERENCE LAB | [address] | [place] [address] | | | [facility] | Bl[address] | [...] REFERENCE | | | | performed at [facility];[address] | | LAB | | | | [place] | | [address] | | | | [address];[place] [address] | | LABORATORY | | + + + + + + + + | Specimen | + + | Blood | + + + + + + + | Performing | Address | City/State/Zipcode | Phone Number | | Organization | | | | + + + + + | REFERENCE LAB | [address] [place] [address] | [place] [address] | [phone] | | [facility] | Blvd[address] | | | | LABORATORY | | | | + + + + + | REFERENCE LAB | [address] [place] [address] | [place] [address] | | | [facility] | Blvd[address] | [...]
--- OUTSIDE RECORDS SUMMARY | ~2019-08-24 | XMS | Encounter Summary ---
Demographics + + + | Address | [address] | | | [place] [address] | + + + | Home Phone [...] + | India Tilley | ECON | [address] | | | | | [place], [place] | | | | | [address] | | + + + + + | Yina La | ECON | Unknown | | + + + + + | Yina Peterson | ECON | Unknown | | + + + + + | Leatha Casillas | ECON | Unknown | | + + + + + Care Team Providers + +------+ + | Care Medical Physiologist Name | Role | Phone | + [...] + + | 01/05/ | Telephone | [facility] | Santos Stephenson | Appointment | | 2017 | | SURGERY [address] | MD Kinga, FACS [address] | | | | | [place], [place] | [address] [facility] | | | | | [address] | [place] [address] | | | | | [phone] | [phone] | | | | | | | [...]
--- OUTSIDE RECORDS SUMMARY | ~2019-08-24 | XMS | Encounter Summary ---
Demographics + + + | Address | [address] | | | [place] [address] | + + + | Home Phone [...] + | Author | [facility] | | | and [place] | + + + | Organization | [facility] | | | and [place] | + + + | Address | Unknown | + + + | Phone | Unavailable | + + + Support + + + + + | Name | Relationship | Address | Phone | + + + + + | India Tilley | ECON | [address] | | | | | [place], [place] | | | | | [address] | | + + + + + | Yina La | ECON | Unknown | | + + + + + | Yina Peterson | ECON | Unknown | | + + + + + | Leatha Casillas | ECON | Unknown | | + + + + + Care Team Providers + +------+ + | Care Elevators Inspector Name | Role | Phone | [...] | Infection | Nick Miller | [address]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 | [place], | [place], | | | | | 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 [address] | [place] [address] | | | | | al disc | [address] | Phone: | | | | | (pyogenic), | [place], [place] | [phone] | | | | | thoracic | [address] | Fax: | | | | | region (HCC) | Phone: | [phone] | | | | | | [phone] | | | | | | 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: | | | | | | s of | [phone] | | | | | | thoracic [...] + + | 06/13/ | Office | [facility] | Fabiana Miller, | 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 | 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 | Nick Apodaca MD | intervertebral disc | | | | [address] | [address] | (pyogenic), thoracic | | | | [place], [place] | [place] [address] | region (HCC) | | | | [address] | [phone] | (Primary Dx); | | | | [phone] | | Osteomyelitis of | | | [...] | | | | | ([facility]); Central | | | | | | [...] Pritchard MD - 06/13/2019 2:00 PM PDT [facility] Service: Infectious Diseases Outpatient Follow Up Note [...] Unfortunately, the patient ended up admitted to [facility] in [place] soon aft er that due to fluid overload and CHF exacerbation. 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 INTERVENTIONAL RADIOLOGY REMOVAL TUNNELED CATHETER Right 04/04/[address] Stephenson SHUNT PLACEMENT/INSERTION N/A 11/08/2017 Procedure: Tunneled Hemodialysis Catheter Placement; Surgeon: Nora Leo MD; Location : [facility] MAIN OR SHUNT PLACEMENT/INSERTION Right 02/04/2018 Procedure: INSERTION SHUNT HEMODIALYSIS W/ PERMACATH; Surgeon: Heather Navarro MD; L ocation: [facility] MAIN OR VEIN SURGERY Right 01/04/2018 Procedure: Right Transposed Basilic Vein to Proximal Radial Artery; Surgeon: Santos Stephenson MD, FACS; Location: [facility] MAIN OR SOCIAL HISTORY Social History [...] receive any antibiotic therapy intravenously at the [facility]. She was educated about the risks of permanent central line and risk of bacteremia. We are hoping to get her repeat CT-guided procedure within the next 7 days. The patient wi shes to do this in [place] and we will explore that possibility, otherwise she was expla ined that she has to come to the [facility]. Side effects of medications, duration of therapy, [...] REFERENCE | | | | performed at [facility];[address] | | LAB | | | | [place] | | [facility] | | | | [address];[place] [address] | | LABORATORY | | + + + + + + + + | Specimen | + + | Blood | + + + + + + + | Performing | Address | City/State/Zipcode | Phone Number | | Organization | | | | + + + + + | REFERENCE LAB | [address] [facility] | [place] [address] | [phone] | | [facility] | Blvd[address] | | | | LABORATORY | | | | + + + + + | REFERENCE LAB | [address] | [place] [address] | | | [facility] | Blvd[address] | [...] REFERENCE | | | | performed at [facility];[address] | | LAB | | | | [place] | | [facility] | | | | [address];[place] [address] | | LABORATORY | | + + + + + + + + | Specimen | + + | Blood | + + + + + + + | Performing | Address | City/State/Zipcode | Phone Number | | Organization | | | | + + + + + | REFERENCE LAB | [address] [place] [address] | [place] [address] | [phone] | | [facility] | Blvd. | | | | LABORATORY | | | | + + + + + | REFERENCE LAB | [address] [place] [address] | [place] [address] | | | [facility] | Blvd. | [...]
--- OUTSIDE RECORDS SUMMARY | ~2019-08-24 | XMS | Encounter Summary ---
Demographics + + + | Address | [address] | | | [place] [address] | + + + | Home Phone [...] | Author | [facility] | | | and [place] | + + + | Organization | [facility] | | | and [place] | + + + | Address | Unknown | + + + | Phone | Unavailable | + + + Support + + + + + | Name | Relationship | Address | Phone | + + + + + | India Tilley | ECON | [address] | | | | | [place], [place] | | | | | [address] | | + + + + + | Yina La | ECON | Unknown | | + + + + + | Yina Peterson | ECON | Unknown | | + + + + + | Leatha Casillas | ECON | Unknown | | + + + + + Care Team Providers + +------+ + | Care Web Offset Press Feeder Name | Role | Phone | + +------+ + PCP | Unavailable | + +------+ + Encounter Details +--------+ + + + + | Date | Type | Department | Care Team | Description | +--------+ + + + + | 02/28/ | Hospital | [facility] | | | | 2006 | Encounter | MED CTR XRAY [address] | | | | | | [address] | | | | | | [place] [address] | | | | | | [phone] | | | +--------+ + + + [...]
--- OUTSIDE RECORDS SUMMARY | ~2019-08-24 | XMS | Encounter Summary ---
Demographics + + + | Address | [address] | | | [place] [address] | + + + | Home Phone [...] + | Author | [facility] | | | and [place] | + + + | Organization | [facility] | | | and [place] | + + + | Address | Unknown | + + + | Phone | Unavailable | + + + Support + + + + + | Name | Relationship | Address | Phone | + + + + + | India Tilley | ECON | [address] | | | | | [place], [place] | | | | | [address] | | + + + + + | Yina La | ECON | Unknown | | + + + + + | Yina Peterson | ECON | Unknown | | + + + + + | Leatha Casillas | ECON | Unknown | | + + + + + Care Team Providers + +------+ + | Care Ballroom Dancer Name | Role | Phone | + +------+ + PCP | Unavailable | + +------+ + Encounter Details +--------+ + + + + | Date | Type | Department | Care Team | Description | +--------+ + + + + | 02/13/ | Hospital | [facility] | [facility], [facility], | | | 2007 - | Encounter | MED CTR CANCER | Venkatesh Forte MD [address] | | | | | [place] [address] | [facility] | | | 03/12/ | | [place], [place] | [place] [address] | | | 2007 | | [address] | [phone] | | | | | [phone] | | | +--------+ + + + [...]
--- OUTSIDE RECORDS SUMMARY | ~2019-08-24 | XMS | Encounter Summary ---
Demographics + + + | Address | [address] | | | [place] [address] | + + + | Home Phone [...] | Author | [facility] | | | and [place] | + + + | Organization | [facility] | | | and [place] | + + + | Address | Unknown | + + + | Phone | Unavailable | + + + Support + + + + + | Name | Relationship | Address | Phone | + + + + + | India Tilley | ECON | [address] | | | | | [place], [place] | | | | | [address] | | + + + + + | Yina La | ECON | Unknown | | + + + + + | Yina Peterson | ECON | Unknown | | + + + + + | Leatha Casillas | ECON | Unknown | | + + + + + Care Team Providers + +------+ + | Care Concrete Inspector Name | Role | Phone | [...] | [address] | [address], [place] | (moderate) (Primary | | | | [place], [place] | [address] [place], [place] | Dx) | | | | [address] | [address] | | | | | [phone] | | | +--------+ + + + [...] 03/23/2017 2:38 PM PDTRenal Ultrasound scheduled at [facility] on 03/29/17 at 10 AM. docu mented in this encounter Plan of Treatment Not on filedocumented as of this encounter Visit Diagnoses + + | Diagnosis | + + | Chronic kidney disease, stage III (moderate) (HCC) - Primary Chronic kidney disease, | | Stage III (moderate) | + + documented in this encounter"
--- OUTSIDE RECORDS SUMMARY | ~2019-08-24 | XMS | Encounter Summary ---
Demographics + + + | Address | [address] | | | [place] [address] | + + + | Home Phone [...] | Author | [facility] | | | and [place] | + + + | Organization | [facility] | | | and [place] | + + + | Address | Unknown | + + + | Phone | Unavailable | + + + Support + + + + + | Name | Relationship | Address | Phone | + + + + + | India Tilley | ECON | [address] | | | | | [place], [place] | | | | | [address] | | + + + + + | Yina La | ECON | Unknown | | + + + + + | Yina Peterson | ECON | Unknown | | + + + + + | Leatha Casillas | ECON | Unknown | | + + + + + Care Team Providers + +------+ + | Care Assistant Signal Maintainer Name | Role | Phone | + +------+ + PCP | Unavailable | + +------+ + Encounter Details +--------+ + + + + | Date | Type | Department | Care Team | Description | +--------+ + + + + | 11/08/ | Imaging | [facility] | Provider, | | | 2018 | Exam | MED CTR EXTERNAL | MD [address] | | | | | IMAGING | [address] | | | | | [phone] | [place] [address] | | +--------+ + + + + [...] for comparison only - no result from [place]. | [facility] | + + + + +---------+ + + | Performing | Address | City/State/Zipcode | Phone Number | | Organization | | | | + +---------+ + + | [facility] | | | | + +---------+ + + documented in this encounter Visit Diagnoses Not on filedocumented in this encounter"
--- OUTSIDE RECORDS SUMMARY | ~2019-08-24 | XMS | Encounter Summary ---
Demographics + + + | Address | [address] | | | [place] [address] | + + + | Home Phone [...] | Author | [facility] | | | and [place] | + + + | Organization | [facility] | | | and [place] | + + + | Address | Unknown | + + + | Phone | Unavailable | + + + Support + + + + + | Name | Relationship | Address | Phone | + + + + + | India Tilley | ECON | [address] | | | | | [place], [place] | | | | | [address] | | + + + + + | Yina La | ECON | Unknown | | + + + + + | Yina Peterson | ECON | Unknown | | + + + + + | Leatha Casillas | ECON | Unknown | | + + + + + Care Team Providers + +------+ + | Care Irrigation Equipment Mechanic Name | Role | Phone | + +------+ + PCP | Unavailable | + +------+ + Encounter Details +--------+ + + + + | Date | Type | Department | Care Team | Description | +--------+ + + + + | 05/26/ | Abstract | [facility] | Darlin Moseley W, | | | 2016 | | NEPHROLOGY [address] | [address] | | | | | [address] | [address] [address] [facility] | | | | | [place] | [place] [address] | | | | | [address] | [phone] | | | | | [phone] | | | +--------+ + + + [...] 1.012 | | EXTERNAL | | | [place], | | | LAB | | | [...]
--- OUTSIDE RECORDS SUMMARY | ~2019-08-24 | XMS | Encounter Summary ---
Demographics + + + | Address | [address] | | | [place] [address] | + + + | Home Phone [...] | Author | [facility] | | | and [place] | + + + | Organization | [facility] | | | and [place] | + + + | Address | Unknown | + + + | Phone | Unavailable | + + + Support + + + + + | Name | Relationship | Address | Phone | + + + + + | India Tilley | ECON | [address] | | | | | [place], [place] | | | | | [address] | | + + + + + | Yina La | ECON | Unknown | | + + + + + | Yina Peterson | ECON | Unknown | | + + + + + | Leatha Casillas | ECON | Unknown | | + + + + + Care Team Providers + +------+ + | Care Storage Management Consultant Name | Role | Phone | + +------+ + PCP | Unavailable | + +------+ + Encounter Details +--------+ + + + + | Date | Type | Department | Care Team | Description | +--------+ + + + + | 01/03/ | Episode | [facility] | Mike Pearson | | | 2018 | Changes | SURGERY [address] | [address], [address] | | | | | [place] | | | | | | [address] | | | | | | [phone] | | | +--------+ + + + [...]
--- OUTSIDE RECORDS SUMMARY | ~2019-08-24 | XMS | Encounter Summary ---
Demographics + + + | Address | [address] | | | [place] [address] | + + + | Home Phone [...] [facility] | | | and [place] | + + + | Organization | [facility] | | | and [place] | + + + | Address | Unknown | + + + | Phone | Unavailable | + + + Support + + + + + | Name | Relationship | Address | Phone | + + + + + | India Tilley | ECON | [phone] | | | | | [place], [place] | | | | | [address] | | + + + + + | Yina La | ECON | Unknown | | + + + + + | Yina Peterson | ECON | Unknown | | + + + + + | Leatha Casillas | ECON | Unknown | | + + + + + Care Team Providers + +------+ + | Care Wind Site Manager Name | Role | Phone | + +------+ + PCP | Unavailable | + +------+ + Encounter Details +--------+ + + + + | Date | Type | Department | Care Team | Description | +--------+ + + + + | 04/10/ | Hospital | [facility] | Patricia, | | | 2006 - | Encounter | MED CTR CANCER | Venkatesh Forte MD [address] | | | | | [place] [address] | [facility] | | | 04/12/ | | [place], [place] | [place] [address] | | | 2006 | | [address] | [phone] | | | | | [phone] | | | +--------+ + + + [...]
--- OUTSIDE RECORDS SUMMARY | ~2019-08-24 | XMS | Encounter Summary ---
Demographics + + + | Address | [address] | | | [place] [address] | + + + | Home Phone [...] Author | [facility] | | | and [place] | + + + | Organization | [facility] | | | and [place] | + + + | Address | Unknown | + + + | Phone | Unavailable | + + + Support + + + + + | Name | Relationship | Address | Phone | + + + + + | India Tilley | ECON | [address] | | | | | [place], [place] | | | | | [address] | | + + + + + | Yina La | ECON | Unknown | | + + + + + | Yina Peterson | ECON | Unknown | | + + + + + | Leatha Casillas | ECON | Unknown | | + + + + + Care Team Providers + +------+ + | Care Claim Rep Name | Role | Phone | + +------+ + PCP | Unavailable | + +------+ + Encounter Details +--------+ + + + + | Date | Type | Department | Care Team | Description | +--------+ + + + + | 02/03/ | Hospital | [facility] | Scott Koroma, | Closed fracture of | | 2019 | Encounter | MED CTR [address] XRAY | MD Nash SEPULVEDA | neck of right femur, | | | | [address] [place] | [place], [place] | initial encounter | | | | [place], [place] | [id number] | ([facility]); Right hip | | | | [address] | | pain; H/O major | | | | [phone] | | orthopedic surgery | +--------+ + [...]
--- OUTSIDE RECORDS SUMMARY | ~2019-08-24 | XMS | Encounter Summary ---
Demographics + + + | Address | [address] | | | [place] [address] | + + + | Home Phone [...] Author | [facility] | | | and [place] | + + + | Organization | [facility] | | | and [place] | + + + | Address | Unknown | + + + | Phone | Unavailable | + + + Support + + + + + | Name | Relationship | Address | Phone | + + + + + | India Tilley | ECON | [address] | | | | | [place], [place] | | | | | [address] | | + + + + + | Yina La | ECON | Unknown | | + + + + + | Yina Peterson | ECON | Unknown | | + + + + + | Leatha Casillas | ECON | Unknown | | + + + + + Care Team Providers + +------+ + | Care Mold Finisher Name | Role | Phone | [...] | | | | | [address] | [place], [place] | | | | | [place], [place] | [address] | | | | | [address] | | | | | | [phone] | | | +--------+ + + + [...] +----+---+ + + | | 1 | [place] | | | | 2 | 43-degrees [...] +----+---+ + + | | 1 | [place] [address] | | | | 3 | [...]
--- OUTSIDE RECORDS SUMMARY | ~2019-08-24 | XMS | Encounter Summary ---
Demographics + + + | Address | [address] | | | [place] [address] | + + + | Home Phone [...] Author | [facility] | | | and [place] | + + + | Organization | [facility] | | | and [place] | + + + | Address | Unknown | + + + | Phone | Unavailable | + + + Support + + + + + | Name | Relationship | Address | Phone | + + + + + | India Tilley | ECON | [address] | | | | | [place], [place] | | | | | [address] | | + + + + + | Yina La | ECON | Unknown | | + + + + + | Yina Peterson | ECON | Unknown | | + + + + + | Leatha Casillas | ECON | Unknown | | + + + + + Care Team Providers + +------+ + | Care Room Designer Name | Role | Phone | [...] | (Primary Dx); | | | | [place], [place] | [place] [address] | Arthritis; Other | | | | [address] | [phone] | back pain; History | | | | [phone] | | of blood clots; | | [...]
--- OUTSIDE RECORDS SUMMARY | ~2019-08-24 | XMS | Encounter Summary ---
Demographics + + + | Address | [address] | | | [place] [address] | + + + | Home Phone [...] | Author | [facility] | | | and [place] | + + + | Organization | [facility] | | | and [place] | + + + | Address | Unknown | + + + | Phone | Unavailable | + + + Support + + + + + | Name | Relationship | Address | Phone | + + + + + | India iTlley | ECON | [address] | | | | | [place], [place] | | | | | [address] | | + + + + + | Yina La | ECON | Unknown | | + + + + + | Yina Peterson | ECON | Unknown | | + + + + + | Leatha Casillas | ECON | Unknown | | + + + + + Care Team Providers + +------+ + | Care Traveling Auditor Name | Role | Phone | [...] [facility]) | | | +--------+--------+ + + + + Encounter Details +--------+ + + + + | Date | Type | Department | Care Team | Description | +--------+ + + + + | 12/04/ | Anesthesia | [facility] | Petros Garrido | | | 2019 | Event | MED CTR OR INTRA OP | MD Zuleima [address] | | | | | [address] | [address] [place] | | | | | [place], [place] | [place] [address] | | | | | [address] | [phone] | | | | | [phone] | | | +--------+ + + + [...] +----+---+ + + | | 1 | [place] | | | | 6 | 43-degrees | | | | 3 | | | | | 1 | | | +----+---+ + + | | 1 | First | | | | 6 | [address] | | | | 3 | | | | | 4 | | | +----+---+ + + | | 1 | [place] off | | | | 6 | [...] 12/09/18 182 by | | eral | lcmp-pil-hplsil catheter system; | Priti Burleson RN | [...] | | | | | Breath, [place] 12/04/18 at | | PM PDT | | | | | 1701, Anesthesia Intra-op | | | | | | + +--------+ +---------+------+------+ +---+---+ | | | +---+---+ + +-------+ +-----+---+---+ | ceFAZolin (ANCEF, KEFZOL) | Given | 12/05/19 | 1 g | | | | injection Intravenous, PRN, | | 19 4:20 | | | | | [place] 12/04/18 at 1620, | | PM PDT [...] 4:04 | | | | | [place] 12/04/18 at 1604, | | PM PDT [...] | | | | | PRN, [place] 12/04/18 at | | PM PDT | [...] 4:14 | | | | | [place] 12/04/18 at 1614, | | PM PDT | | | | | Anesthesia Intra-op | | | | | | + +-------+ +--------+---+---+ +---+---+ | | | +---+---+ documented in this encounter"
--- OUTSIDE RECORDS SUMMARY | ~2019-08-24 | XMS | Encounter Summary ---
Demographics + + + | Address | [address] | | | [place] [address] | + + + | Home Phone [...] | [facility] | | | and [place] | + + + | Organization | [facility] | | | and [place] | + + + | Address | Unknown | + + + | Phone | Unavailable | + + + Support + + + + + | Name | Relationship | Address | Phone | + + + + + | India Tilley | ECON | [address] | | | | | [place], [place] | | | | | [address] | | + + + + + | Yina La | ECON | Unknown | | + + + + + | Yina Peterson | ECON | Unknown | | + + + + + | Leatha Casillas | ECON | Unknown | | + + + + + Care Team Providers + +------+ + | Care Government Operations Consultant Name | Role | Phone | [...] + + | 03/09/ | Telephone | [facility] | Santos Stephenson | Other (appointment) | | 2018 | | SURGERY [address] | MD Kinga, FACS [address] | | | | | [place], [place] | [address] [facility] | | | | | [address] | [place] [address] | | | | | [phone] | [phone] | | | | | | | [...]
--- OUTSIDE RECORDS SUMMARY | ~2019-08-24 | XMS | Encounter Summary ---
Demographics + + + | Address | [address] | | | [place] [address] | + + + | Home Phone [...] | Author | [facility] | | | and [place] | + + + | Organization | [facility] | | | and [place] | + + + | Address | Unknown | + + + | Phone | Unavailable | + + + Support + + + + + | Name | Relationship | Address | Phone | + + + + + | India Tilley | ECON | [address] | | | | | [place], [place] | | | | | [address] | | + + + + + | Yina La | ECON | Unknown | | + + + + + | Yina Peterson | ECON | Unknown | | + + + + + | Leatha Casillas | ECON | Unknown | | + + + + + Care Team Providers + +------+ + | Care Lithographic Platemaker Name | Role | Phone | + [...] | Surgery | kidney | DO [address] | [address] | | | | | disease, | [place], [place] | [address] | | | | | stage V | [address] [place] | [place], | | | | | [facility] | [place] | [place] [address] | | | | | | [address] | Phone: | | | | | | Phone: | [phone] | | | | | | [phone] | Fax: | | | | | | Fax: | [phone] | | | | | | [phone] | | +--------+ + + + + + Encounter Details +--------+---------+ + + + | Date | Type | Department | Care Team | Description | +--------+---------+ + + + | 02/10/ | Office | [facility] | Santos Stephenson | Chronic kidney | | 2018 | Visit | SURGERY [address] | MD Kinga, FACS [address] | disease, stage V | | | | [place], [place] | [address] [facility] | (HCC) (Primary Dx); | | | | [address] | [facility] [place] [place] [address] | Post-operative state | | | | [phone] | [phone] | | | | | | | [...] REPORT: PATIENT NAME : Estefani Tilley EQUIPMENT: Dead Inventory Management System M-Turbo with 10-5 mHertz probe. INDICATIONS: S/P [...]
--- OUTSIDE RECORDS SUMMARY | ~2019-08-24 | XMS | Encounter Summary ---
Demographics + + + | Address | [address] | | | [place] [address] | + + + | Home Phone [...] | Author | [facility] | | | and Kamaljitana | + + + | Organization | [facility] | | | and [place] | + + + | Address | Unknown | + + + | Phone | Unavailable | + + + Support + + + + + | Name | Relationship | Address | Phone | + + + + + | India Tilley | ECON | [address] | | | | | [place], [place] | | | | | [address] | | + + + + + | Yina La | ECON | Unknown | | + + + + + | Yina Peterson | ECON | Unknown | | + + + + + | Leatha Casillas | ECON | Unknown | | + + + + + Care Team Providers + +------+ + | Care Glass Rolling Machine Operator Name | Role | Phone | + +------+ + PCP | Unavailable | + +------+ + Encounter Details +--------+ + + + + | Date | Type | Department | Care Team | Description | +--------+ + + + + | 05/18/ | Orders Only | [facility] | Fabiana Miller, | | | 2018 | | INFECTIOUS DISEASE | Nick Apodaca MD | | | | | [address] | [address] | | | | | [place], [place] | [place] [address] | | | | | [address] | [phone] | | | | | [phone] | | | +--------+ + + + [...] | | REFERENCE | | | | [facility];[address] [facility] | | LAB | | | | Blvd;[place] | | [facility] | | | | [id number]: Testing | | LABORATORY | | | | performed at [facility], [address] | | | | | | [facility], | | | | | | [place] [address] | | | | + + + + + + + + | Specimen | + + | | + + + + + + + | Performing | Address | City/State/Zipcode | Phone Number | | Organization | | | | + + + + + | REFERENCE LAB | [address] [place] [address] | [place] [address] | [phone] | | [facility] | Blvd. | | | | LABORATORY | | | | + + + + + | REFERENCE LAB | [address] [place] [address] | [place] [address] | | | [facility] | Blvd. | | | | LABORATORY | | | | + + + + + documented in this encounter Visit Diagnoses Not on filedocumented in this encounter"
--- OUTSIDE RECORDS SUMMARY | ~2019-08-24 | XMS | Encounter Summary ---
Demographics + + + | Address | [address] | | | [place] [address] | + + + | Home Phone [...] | Author | [facility] | | | and Kamaljitana | + + + | Organization | [facility] | | | and [place] | + + + | Address | Unknown | + + + | Phone | Unavailable | + + + Support + + + + + | Name | Relationship | Address | Phone | + + + + + | India Tilley | ECON | [address] | | | | | [place], [place] | | | | | [address] | | + + + + + | Yina La | ECON | Unknown | | + + + + + | Yina Peterson | ECON | Unknown | | + + + + + | Leatha Casillas | ECON | Unknown | | + + + + + Care Team Providers + +------+ + | Care Hand Drawer In Name | Role | Phone | + [...] + + | 03/23/ | Emergency | [facility] | Carlos Baker | Osteomyelitis, | | 2019 - | | MED CTR EM[facility] | MD Venkatesh [address] | unspecified site, | | | | CENTER [address] | [address] [place] | unspecified type | | 03/24/ | | [place], [place] | [place] [address] | ([facility]) (Primary Dx); | | 2018 | | [address] | [phone] | Acute midline | | | | [phone] | | thoracic back pain; | | [...] | | | | | | ([facility]), Right hip | | | | [...] R?MRN: | | | | | | [id number] | | | [id number] | | | riteri | | | [...] | | | St. | | | [place] | | | y | | | [...] | | | [facility] | | | [place] | | | [facility] | | | [facility] | [facility] | St[facility] | | | [place] | | | y | | | [...] | | | St. | | | [place] | | | y H. | | [...] | | e of | | | la posta | | | | | | mckeon [...] | | | St. | | | [place] | | | y H. | | [...] the | | | | | | last remodeler repairer | | | al | | | [...] | | | St. | | | [place] | | | y H. | | [...] | | e of | | | la posta | | | | | | mckeon [...] | | | [facility] | | | [place] | | | [place] | | | ID | | | [...] | | | [facility] | | | [place] | | | [place] | | | ID | | | [...] | | | [facility] | | | [place] | | | [place] | | | ID | | | [...] | | | [facility] | | | [place] | | | [place] | | | ID | | | [...] | | | [facility] | | | [place] | | | [place] | | | ID | | | [...] | | | [facility] | | | [place] | | | | | | [facility] [...] | | | aff-d8 | | | [id number] | | | [address] | | | [...] ST. | [address] | [place], [place] | [phone] | | [facility] | | [address] | | | - LABORATORY | | [...] + | [facility] | [address] | [place] | [phone] | | [facility] | | [address] | | | - LABORATORY | | [...] + | [facility] | [address] | [place] | [phone] | | [facility] | | [address] | | | - LABORATORY | | [...] [address] | [place] | [phone] | | [facility] | | [address] | | | - LABORATORY | | [...] 3.78 (H) | 0.55 - 1.02 | [facility] | | | | | mg/dL | [facility] | | | | | | MEDICAL | | | | | | CENTER - | | | | | | LABORATORY | | + + + + + + | eGFR if not | 12 (L)Comment: | >=60 | [facility] | | | | GLOMERULAR FILTRATION | mL/min/1.73m2 | [facility] | | | [place] | RATE,ESTIMATED | | MEDICAL | | | | mL/min/1.28y1Azbo than | | CENTER - | | [...] [address] | [place] | [phone] | | [facility] | | [address] | | | - LABORATORY | | [...] [address] | [place] | [phone] | | [facility] | | [address] | | | - LABORATORY | | [...] [address] | [place] | [phone] | | [facility] | | [address] | | | - LABORATORY | | [...] lymphadenopathy. | | | LUNGS:There is a eeseu-ru-lqfwwotr layering left pleural effusion. | | | [...] or hilar | | lymphadenopathy.LUNGS:There is a twwvn-ct-ojlgqydw layering left pleural effusion. | | There [...] very highly suspicious for osteomyelitis/discitis at the R95-V96qyxzn.Small to | | moderate layering left pleural [...] | | | | PRN, Other, Starting [facility] 03/23/19 | | PM PDT | [...] 8:22 | | | | | ONCE, [facility] 03/23/19 at 2014, For 1 | [...] | | | | 90 Minutes, ONCE, [facility] 03/23/19 at | | | | | | | 2240, For 1 dose, Keep in | | | | | | | refrigerator., Indications: | | | | | | | Osteomyelitis | | | | | | + +---------+ + +-------+---+ + +---+ | | | + +---+ | vancomycin per pharmacy | | | PHARMACY CONSULT, Starting [facility] | | | 03/23/19 at 2229, Indications: | | | Osteomyelitis | | + +---+ | | | + +---+ documented in this encounter
--- OUTSIDE RECORDS SUMMARY | ~2019-08-24 | XMS | Encounter Summary ---
Demographics + + + | Address | [address] | | | [place] [address] | + + + | Home Phone [...] Author | [facility] | | | and Kamaljitana | + + + | Organization | [facility] | | | and [place] | + + + | Address | Unknown | + + + | Phone | Unavailable | + + + Support + + + + + | Name | Relationship | Address | Phone | + + + + + | India Tilley | ECON | [address] | | | | | [place], [place] | | | | | [address] | | + + + + + | Yina La | ECON | Unknown | | + + + + + | Yina Peterson | ECON | Unknown | | + + + + + | Leatha Casillas | ECON | Unknown | | + + + + + Care Team Providers + +------+ + | Care Acid Changer Name | Role | Phone | + [...] Required | | deconditioni | DO [address] | | | | | | ng Anemia | [place], [place] | | | | | | of chronic | [address] [place] | | | | | | renal | [place], [place] | | | | | | failure, | [address] | | | | | | stage 5 | Phone: | | | | | | ([facility]) | [phone] | | | | | | Closed | Fax: | | | | | | fracture of | [phone] | | | | | | right [...] [facility]) | | | +--------+--------+ + + + + Encounter Details +--------+ + + + + | Date | Type | Department | Care Team | Description | +--------+ + + + + | 12/04/ | Hospital | [facility] | Nick Mendoza MD | Closed fracture of | | 2019 - | Encounter | MED CTR SURGICAL | [address] | neck of right femur, | | | | [address] [place] | [place] | initial encounter | | 12/09/ | | [place] [address] | [address] | ([facility]) (Primary Dx); | | 2019 | | [phone] | | Non-compliance; End | | | | | Scott Koroma MD | stage renal disease | | | | | [address] | ([facility]); Type 2 | | | | | [place], [place] | diabetes mellitus | | | | | [address] | with stage 4 chronic | | | | | | kidney disease, | | | | | | with long-term | | | | | | current use of | | | | | | insulin ([facility]); | | | | | | Closed fracture of | | | | | | right hip, initial | | | | | | encounter ([facility]); | | | | | | Type 2 DM with CKD | | | | | | stage 5 and | | | | | | hypertension ([facility]); | | | | | | Renal bone disease; | | | | | | Physical | | | | | | deconditioning; | | | | | | Anemia of chronic | | | | | | renal failure, stage | | | | | | 5 ([facility]); Closed | | | | [...] signed by: Scott Koroma, 12/20/2018 12:05 [facility] signed by Scott Koroma MD at 05/2019 12:10 PM PDTdocumented in this encounter Discharge Instructions Instructions Gopi Muñoz DO - . Please keep your old HD appt. at [facility] for 12/12/2018. 2. Call our Office if you change your mind and wish to go to [facility] , for further R ehab. 3. [...] might be d ifferent from the original. [facility] [address] [place] [address] PROGRESS NOTE Pt. Name/Age/: Estefani Tilley 73 y.o. 1945 Med. Record Number: [id number] Date of admission: 12/04/2018 NEPHROLOGY HPI - [...] Lungs: Prolonged expiratory phase, with findings of Kalama rales lower 1/4 both lungs. Abdomen: Soft, [...] HD tomorrow and assess for DC soon. [facility] Amol Green MD - 12/08/2018 3:29 [...] going to any Rehab. Ctr after DC. [facility] Scott Tadeo MD - 12/07/2018 8:56 [...] Hassan DO - 12/06/2018 5:33 PM PDT [facility] [address] [place] [address] PROGRESS NOTE Pt. Name/Age/: Estefani Tilley 73 y.o. 1945 Med. Record Number: [id number] Date of admission: 12/04/2018 NEPHROLOGY HPI - [...] Lungs: Prolonged expiratory phase, with findings of [place] rales lower 1/4 both lungs. Abdomen: Soft, [...] to go home when felt ap propriate [facility] Scott Tadeo MD - 12/06/2018 8:02 [...] directions X Pharmacy list names: Mayco Johnson ([place]) X Outside Information Vaccines up to date? [...] did not want to answer medication history surface water technician's questions; barely verifie d her name. Answered questions with head nods or patients stating that she was not taking a medication. Medication: Prior to Admission Sig: Patient taking differently GENERAL ENGINEER as: Atorvastatin 20 mg tablet Take 1 [...] idea what this medication was Best possible GENERAL ENGINEER medication list after pharmacy review: PT REPORTED [...] into the vein Three times a w nulato. Historical Provider, epoetin karthik (EPOGEN, PROCRIT) 10,000 [...] by mouth every morning (before breakfast). Taking Sirman Mooney MD UNABLE TO FIND Med Name: Cadoexomer Iodine 0.9 % gel. Apply a small amount to affected ar ea as directed during dressing changes. Simran Mooney MD Medication review performed and electronically signed by Kerry Jordan, Computer Repairer 12/05/2018 14:45 Reviewed by Flora Watts, PharmD 12/05/2018 15:51 Scott Tadeo MD - 12/05/2018 7:41 AM PDT Patient feels better than yest Vitals: 12/05/18 0731 BP: 152/71 Pulse: 67 Resp: 16 Temp: 36.4 C (97.6 F) Intake/Output Summary (Last 24 hours) at 12/05/18 0765 Last data filed at 12/05/18 6263 Gross per 24 hour Intake 1115 ml [...] | | | | | | 5 ([facility]) Closed | | | | [...] R?MRN: | | | | | | [id number] | | | [id number] | | | riteri | | | [...] | | | St. | | | [place] | | | y | | | [...] | | | [facility] | | | [place] | | | [facility] 0 | | | [facility] | | | St. | | | [place] | | | y | | | [...] | | | St. | | | [place] | | | y H. | | [...] | | e of | | | [place] | | | | | | mckeon [...] | | | St. | | | [place] | | | y H. | | [...] the | | | | | | cow tender | | | al | | | [...] | | | St. | | | [place] | | | y H. | | [...] | | e of | | | [place] | | | | | | mckeon [...] | | | [facility] | | | [place] | | | [place] | | | ID | | | [...] | | | [facility] | | | [place] | | | [place] | | | ID | | | [...] | | | [facility] | | | [place] | | | [place] | | | ID | | | [...] | | | [facility] | | | [place] | | | [place] | | | ID | | | [...] | | | [facility] | | | [place] | | | [place] | | | ID | | | [...] | | | [facility] | | | [place] | | | | | | HEALTH [...] | | | aff-d8 | | | [id number] | | | [address] | | | [...] + | [facility] | [address] | [place] | [phone] | | [facility] | | [address] | | | - LABORATORY | | [...] + | [facility] | [address] | [place] | [phone] | | [facility] | | [address] | | | - LABORATORY | | [...] [address] | [place] | [phone] | | [facility] | | [address] | | | - LABORATORY | | [...] + | [facility] | [address] | [place] | [phone] | | [facility] | | [address] | | | - LABORATORY | | [...] [address] | [place] | [phone] | | [facility] | | [address] | | | - LABORATORY | | [...] [address] | [place] | [phone] | | [facility] | | [address] | | | - LABORATORY | | [...] [address] | [place] | [phone] | | [facility] | | [address] | | | - LABORATORY | | [...] + | [facility] | [address] | [place] | [phone] | | [facility] | | [address] | | | - LABORATORY | | [...] [address] | [place] | [phone] | | [facility] | | [address] | | | - [...] [address] | [place] | [phone] | | [facility] | | [address] | | | - [...] + | [facility] | [address] | [place] | [phone] | | [facility] | | [address] | | | - LABORATORY | | [...] + | [facility] | [address] | [place], [place] | [phone] | | [facility] | | [address] | | | - LABORATORY | | [...] [address] | [place] | [phone] | | [facility] | | [address] | | | - LABORATORY | | [...] [address] | [place] | [phone] | | [facility] | | [address] | | | - LABORATORY | | [...] [address] | [place] | [phone] | | [facility] | | [address] | | | - [...] + | [facility] | [address] | [place] | [phone] | | [facility] | | [address] | | | - LABORATORY | | [...] [address] | [place] | [phone] | | [facility] | | [address] | | | - LABORATORY | | [...] ST. | [address] | [place], [place] | [phone] | | [facility] | | [address] | | | - LABORATORY | | [...] [address] | [place] | [phone] | | [facility] | | [address] | | | - LABORATORY | | [...] + | [facility] | [address] | [place] | [phone] | | [facility] | | [address] | | | - LABORATORY | | [...] [address] | [place] | [phone] | | [facility] | | [address] | | | - LABORATORY | | [address] | [place] | [phone] | | [facility] | | [address] | | | - LABORATORY | | [...] mL/min/1.73m2 | [facility] | | | [place] | | | MEDICAL | | | [...] [address] | [place] | [phone] | | [facility] | | [address] | | | - LABORATORY | | [...] ST. | [address] | [place] | [phone] | | [facility] | | [address] | | | - LABORATORY | | [...] [address] | [place] | [phone] | | [facility] | | [address] | | | - LABORATORY | | [...] + | [facility] | [address] | [place] | [phone] | | [facility] | | [address] | | | - LABORATORY | | [...] ST. | [address] | [place] | [phone] | | [facility] | | [address] | | | - LABORATORY | | [...] | | Dictated and Signed by: Salvatore Nuenz MD Electronically signed: | | | 12/04/2018 [...] + | [facility] | [address] | [place] | [phone] | | [facility] | | [address] | | | - LABORATORY | | [...] [address] | [place] | [phone] | | [facility] | | [address] | | | - LABORATORY | | [...] + | [facility] | [address] | [place] | [phone] | | [facility] | | [address] | | | - LABORATORY | | [...] mL/min/1.73m2 | [facility] | | | [place] | | | MEDICAL | | | [...] [address] | [place] | [phone] | | [facility] | | [address] | | | - LABORATORY | | [...] ST. | [address] | [place], [place] | [phone] | | [facility] | | [address] | | | - LABORATORY | | [...] | | | | | | | 2669-7275 Use NIGHT DOSE for | | | | | | | doses scheduled: HS, 3AM, | | | | | | | Nighttime 0929-4152, | | | | | | + [...] scheduled: AC, NPO, Daytime | | | 3749-5649 Use NIGHT DOSE for | | | doses scheduled: HS, 3AM, | | | Nighttime 2441-9820, | | + +---+ | | | [...]
--- OUTSIDE RECORDS SUMMARY | ~2019-08-24 | XMS | Clinical Summary ---
Demographics + + + | Address | [address] | | | [place] [address] | + + + | Home Phone [...] Author | [facility] | | | and [place]jit[place] | + + + | Organization | [facility] | | | and [place] | + + + | Address | Unknown | + + + | Phone | Unavailable | + + + Support + + + + + | Name | Relationship | Address | Phone | + + + + + | India Tilley | ECON | [phone] | | | | | [place], [place] | | | | | [address] | | + + + + + | Yina La | ECON | Unknown | | + + + + + | Yina Peterson | ECON | Unknown | | + + + + + | Leatha Casillas | ECON | Unknown | | + + + + + Care Team Providers + +------+ + | Care Radiation Control Health Physicist Name | Role | Phone | + +------+ + | Renato villarreal COLD ROLLING SUPERVISOR | PCP | | + +------+ [...] | mastectomy L Oct 19 with chemo [facility] | | | [...] | Telephone | Vascular Surgery | Francisca oRbert, | Surgery Appointment | | 2018 | [...] | | 2018 | on | | Technology And Engineering Teacher | Records | | | | | | 06/20/2019- | | | | | | 9- [facility] | | | | | | [facility] . ) | +--------+ + + [...] Coordination | | 2019 | | | Technology And Engineering Teacher | (Patient Timeline - | | | [...] of | | 2018 | | | Solid State Tester | intervertebral disc | | | | | | (pyogenic), thoracic | | | | | | region (HCC); | | | | | | Osteomyelitis of | | | | | | thoracic vertebra | | | | | | ([facility]) | +--------+ + + + + | 06/01/ | Telephone | Nephrology | Gopi Muñoz | Other | | 2019 | | | M, DO | | +--------+ + + + + | 05/26/ | Documentati | Infectious Diseases | Carlos Jansen, | Referral ([facility] | | 2019 | on | | MD | [facility] | | | | | | center) | +--------+ + + + + | 05/20/ | Hospital | | Mirza Retana | Hypoxia; Pulmonary | | 2019 - | Encounter | | MD Sanford Cespedes, | edema with | | | | | MD Nora | congestive heart | | 05/25/ | | | | failure, NYHA class | | 2019 | | | | 4 ([facility]); ESRD (end | | | | | | stage renal disease) | | | | | | on dialysis ([facility]); | | | | | | Hypertensive | | | | | | urgency, malignant; | | | | | | Anemia in chronic | | | | | | kidney disease, on | | | | | | chronic dialysis | | | | | | ([facility]); Essential | | | | | | hypertension; | | | | | | Osteomyelitis of | | | | | | thoracic region | | | | | | ([facility]); Type 2 | | | | | | diabetes mellitus | | | | | | with stage 4 chronic | | | | | | kidney disease, | | | | | | with long-term | | | | | | current use of | | | | | | insulin ([facility]) | +--------+ + + + + from [...] | + + + + | INFLUENZA, [id number], | 08/28/2009 | | | UNSPECIFIED | [...] | Right: | CATIA | | | [id number] | | 6.5x85mm - | | Hip | MEDICAL - | | | S / / | | [id number]: Qty: 2 | | | STRY | | | | | on 12/04/2018 by Ga, | | | | | | | | Scott John MD at [facility] | | | | | | | | [facility] | | | | | | | + +-------+--------+ +--------+--------+--------+ | Screw Asnis 3 Ti 20mm | Screw | Right: | CATIA | | | [id number] | | 6.5x90mm - | | Hip | MEDICAL - | | | S / / | | [id number]: Qty: 1 | | | STRY | | | | | on 12/04/2018 by Ga, | | | | | | | | Scott John MD at [facility] | | | | | | | | [facility] | | | | | | [...] | | | | performed at [facility];[address] | | LAB | | | | [place] | | [facility] | | | | [address];[place] [address] | | LABORATORY | | + + + + + + + + | Specimen | + + | Blood | + + + + + + + | Performing | Address | City/State/Zipcode | Phone Number | | Organization | | | | + + + + + | REFERENCE LAB | [address] [place] [address] | [place] [address] | [phone] | | [facility] | Blvd[address] | | | | LABORATORY | | | | + + + + + | REFERENCE LAB | [address] [place] [address] | [place] [address] | | | [facility] | Blvd[address] | [...] | | | | performed at [facility];[address] | | LAB | | | | [place] | | [facility] | | | | [address];[place] [address] | | LABORATORY | | + + + + + + + + | Specimen | + + | Blood | + + + + + + + | Performing | Address | City/State/Zipcode | Phone Number | | Organization | | | | + + + + + | REFERENCE LAB | [address] [facility] [address] | [place] [address] | [phone] | | [facility] | Blvd[address] | | | | LABORATORY | | | | + + + + + | REFERENCE LAB | [address] | [place] [address] | | | [facility] | Blvd[address] | | | | LABORATORY | | | | + + + + + POC Glucose (05/25/2019 12:15 PM PDT)Only the most recent of 2 results within the time skyla od is [...] [address] | [place] | [phone] | | [facility] | | [address] | | | - LABORATORY | | [...] 4.14 (H) | 0.55 - 1.02 | [facility] | | | | | [...] mL/min/1.73m2 | [facility] | | | [place] | RATE,ESTIMATED | | MEDICAL | | | | mL/min/1.44w4Yfqf than | | CENTER - | | [...] [address] | [place] | [phone] | | [facility] | | [address] | | | - LABORATORY | | [...] + | [address] | [address] | [place] | [phone] | | [facility] | | [address] | | | - LABORATORY | | [...] +--------+ +---------+--------+ | MEDICARE | MEDICA | [id number] | 04/13/20 | [phone] | | Medica | | | RE | | 11-Pre | 5 | | re | | | PART A | | sent | | | | | | AND B | | | | | | + +--------+ +--------+ +---------+--------+ | MEDICARE | MEDICA | [id number] | 04/13/20 | [phone] | | Medica | | | RE | | 11-Pre | 5 | | re | | | PART A | | sent | | | | | | AND B | | | | | | + +--------+ +--------+ +---------+--------+ | [facility] | IHS | [id number] | | | | Indemn | | SERVICE | YELLOW | | 019-Pr | | | ity | | | HAWK | | esent | | | | + +--------+ +--------+ +---------+--------+ | MEDICAID [place] | MEDICA | [id number] | 03/13/20 | [phone] | | Medica | | | ID [place] | | 17-Pre | 2 | | id | | | PLUS | | sent | | | | + +--------+ +--------+ +---------+--------+ | [facility] | IHS | [id number] | | | | Indemn | | [...] Person | Self | [birth year] | | [address] | | | al/Fam | | 1945 | [phone] | [place] [address] | | | natali | | | 7 (Home) | | | | | | | [phone] | | | | | | | 0 (Work) | | + +--------+ +--------+ + + | Estefani Tilley | Person | Self | [birth year] | | [address] | | | al/Fam | | 1945 | [phone] | [place] [address] | | | natali | | | 7 (Home) | | | | | | | [phone] | | | | | | | 0 (Work) | | + +--------+ +--------+ + + Advance Directives + + + + + | Type | Date Recorded | Patient | Explanation | | | | Senior Java Architect | | + + + + + | Power of | | | | | Dress Cap Maker | | | | + + + [...] + + + +---+ | RN or to pronounce: | RN may | | [...]
--- OUTSIDE RECORDS SUMMARY | ~2019-08-24 | XMS | Encounter Summary ---
Demographics + + + | Address | [address] | | | [place] [address] | + + + | Home Phone [...] + | Author | [facility] | | | and Kamaljitana | + + + | Organization | [facility] | | | and [place] | + + + | Address | Unknown | + + + | Phone | Unavailable | + + + Support + + + + + | Name | Relationship | Address | Phone | + + + + + | India Tilley | ECON | [address] | | | | | [place], [place] | | | | | [address] | | + + + + + | Yina La | ECON | Unknown | | + + + + + | Yina Peterson | ECON | Unknown | | + + + + + | Leatha Casillas | ECON | Unknown | | + + + + + Care Team Providers + +------+ + | Care Ball Holder Name | Role | Phone | [...] ([facility]) | | | | | | [...] ([facility]) | | | | | | [...] + + | 02/04/ | Emergency | [facility] | [place], | Complications, | | 2018 - | | MED CTR SURGICAL | Venkatesh Esteban MD [address] | dialysis, catheter, | | | | [address] [place] | [address] [place] | mechanical, initial | | 02/05/ | | [place] [address] | [place] [address] | encounter ([facility]) | | 2018 | | [phone] | [phone] | (Primary Dx); End | | | | | | stage renal disease | | | | | Heather Navarro, | ([facility]) | | | | | [address] | | | | | | [place], [place] | | | | | | [phone] | | | | | | | [...] Office Phone Number to Contact Dr Navarro: [phone] Navarro's Office to schedule a follow up visit as needed - you will follow up with Dr Stephenson and at the dialysis center. Our office is located in the [facility] next door to Urgent Care. [...] Wednesday 9:00-2:00PM. Call the General Surgery Office [phone] for the following: Persistent vomiting Diarrhea lasting [...] as possible. Limit sports and strenuous activities [id number]. Shower as usual. Gently wash around your [...] ST. | [address] | [place], [place] | [phone] | | [facility] | | [address] | | | - LABORATORY | | [...] ST. | [address] | [place], [place] | [phone] | | [facility] | | [address] | | | - LABORATORY | | [...] 3.57 (H) | 0.60 - 1.30 | [facility] | | | | | mg/dL [...] mL/min/1.73m2 | [facility] | | | [place] | RATE,ESTIMATED | | MEDICAL | | | | mL/min/1.65s4Xvaw than | | CENTER - | | [...] [address] | [place] | [phone] | | [facility] | | [address] | | | - LABORATORY | | [...] [address] | [place] | [phone] | | [facility] | | [address] | | | - LABORATORY | | | | + + + + + documented in this encounter Visit Diagnoses + + | Diagnosis | + + | Complications, dialysis, catheter, mechanical, initial encounter ([facility]) - Primary | + + | End stage renal disease ([facility]) End stage renal disease | + [...] agent. | | | Ondansetron IV is divorce attorney | | | out. If patient cannot [...]
--- OUTSIDE RECORDS SUMMARY | ~2019-08-24 | XMS | Clinical Summary ---
Demographics + + + | Address | [address] | | | [place] [address] | + + + | Home Phone [...] + | Author | [facility] | | | and Kamaljit[place] | + + + | Organization | [facility] | | | and [place] | + + + | Address | Unknown | + + + | Phone | Unavailable | + + + Support + + + + + | Name | Relationship | Address | Phone | + + + + + | India Tilley | ECON | [address] | | | | | [place], [place] | | | | | [address] | | + + + + + | Yina La | ECON | Unknown | | + + + + + | Yina Peterson | ECON | Unknown | | + + + + + | Leatha Casillas | ECON | Unknown | | + + + + + Care Team Providers + +------+ + | Care Mold Maker Plastic Molds Name | Role | Phone | + +------+ + | Renato villarreal LAW LIBRARIAN | PCP | | + +------+ + [...] | mastectomy L Oct 19 with chemo [facility] | | | | [...] | | 2018 | on | | Louver Door Assembler | Records | | | | | | 06/20/2019- | | | | | | 9- [facility] | | | | | | [facility] . ) | +--------+ + + [...] Coordination | | 2019 | | | Louver Door Assembler | (Patient Timeline - | | | [...] of | | 2018 | | | Director Of Aviation | intervertebral disc | | | | | | (pyogenic), thoracic | | | | | | region (HCC); | | | | | | Osteomyelitis of | | | | | | thoracic vertebra | | | | | | ([facility]) | +--------+ + + + + | 06/01/ | Telephone | Nephrology | Gopi Muñoz | Other | | 2019 | | | M, DO | | +--------+ + + + + | 05/26/ | Documentati | Infectious Diseases | Carlos Jansen, | Referral ([facility] | | 2019 | on | | MD | [facility] | | | | | | [...] | 2019 | | | | 4 ([facility]); ESRD (end | | | | | | stage renal disease) | | | | | | on dialysis ([facility]); | | | | | | Hypertensive | | | | | | urgency, malignant; | | | | | | Anemia in chronic | | | | | | kidney disease, on | | | | | | chronic dialysis | | | | | | ([facility]); Essential | | | | | | hypertension; | | | | | | Osteomyelitis of | | | | | | thoracic region | | | | | | ([facility]); Type 2 | | | | | | diabetes mellitus | | | | | | with stage 4 chronic | | | | | | kidney disease, | | | | | | with long-term | | | | | | current use of | | | | | | insulin ([facility]) | +--------+ + + + + from [...] | + + + + | INFLUENZA, [id number], | 08/28/2009 | | | UNSPECIFIED | [...] | Right: | CATIA | | | [id number] | | 6.5x85mm - | | Hip | MEDICAL - | | | S / / | | [id number]: Qty: 2 | | | STRY | | | | | on 12/04/2018 by Ga, | | | | | | | | Scott John MD at [facility] | | | | | | | | [facility] | | | | | | | + +-------+--------+ +--------+--------+--------+ | Screw Asnis 3 Ti 20mm | Screw | Right: | CATIA | | | [id number] | | 6.5x90mm - | | Hip | MEDICAL - | | | S / / | | [id number]: Qty: 1 | | | STRY | | | | | on 12/04/2018 by Ga, | | | | | | | | Scott John MD at [facility] | | | | | | | | [facility] | | | | | | [...] REFERENCE | | | | performed at [facility];[address] | | LAB | | | | [place] | | [facility] | | | | [address];[place] [address] | | LABORATORY | | + + + + + + + + | Specimen | + + | Blood | + + + + + + + | Performing | Address | City/State/Zipcode | Phone Number | | Organization | | | | + + + + + | REFERENCE LAB | [address] [place] [address] | [place] [address] | [phone] | | [facility] | Blvd[address] | | | | LABORATORY | | | | + + + + + | REFERENCE LAB | [address] [place] [address] | [place] [address] | | | [facility] | Blvd[address] | [...] REFERENCE | | | | performed at [facility];[address] | | LAB | | | | [place] | | [facility] | | | | [address];[place] [address] | | LABORATORY | | + + + + + + + + | Specimen | + + | Blood | + + + + + + + | Performing | Address | City/State/Zipcode | Phone Number | | Organization | | | | + + + + + | REFERENCE LAB | [address] | [place] [address] | [phone] | | [facility] | Blvd[address] | | | | LABORATORY | | | | + + + + + | REFERENCE LAB | [address] | [place] [address] | | | [facility] | Blvd[address] | [...] [address] | [place] | [phone] | | [facility] | | [address] | | | - LABORATORY | | [...] 4.14 (H) | 0.55 - 1.02 | [facility] | | | | | mg/dL [...] mL/min/1.73m2 | [facility] | | | [place] | RATE,ESTIMATED | | MEDICAL | | | | mL/min/1.38a3Kkvn than | | CENTER - | | [...] [address] | [place] | [phone] | | [facility] | | [address] | | | - LABORATORY | | [...] + | [address] | [address] | [place] | [phone] | | [facility] | | [address] | | | - LABORATORY | | [...] +--------+ +---------+--------+ | MEDICARE | MEDICA | [id number] | 04/13/20 | [phone] | | Medica | | | RE | | 11-Pre | 5 | | re | | | PART A | | sent | | | | | | AND B | | | | | | + +--------+ +--------+ +---------+--------+ | MEDICARE | MEDICA | [id number] | 04/13/20 | [phone] | | Medica | | | RE | | 11-Pre | 5 | | re | | | PART A | | sent | | | | | | AND B | | | | | | + +--------+ +--------+ +---------+--------+ | [facility] | IHS | [id number] | | | | Indemn | | SERVICE | YELLOW | | 019-Pr | | | ity | | | HAWK | | esent | | | | + +--------+ +--------+ +---------+--------+ | MEDICAID [place] | MEDICA | [id number] | 03/13/20 | [phone] | | Medica | | | ID [place] | | 17-Pre | 2 | | id | | | PLUS | | sent | | | | + +--------+ +--------+ +---------+--------+ | [facility] | IHS | [id number] | | | | Indemn | | [...] Person | Self | [birth year] | | [address] | | | al/Fam | | 1945 | [phone] | [place] [address] | | | natali | | | 7 (Home) | | | | | | | [phone] | | | | | | | 0 (Work) | | + +--------+ +--------+ + + | Estefani Tilley | Person | Self | [birth year] | | [address] | | | al/Fam | | 1945 | [phone] | [place] [address] | | | natali | | | 7 (Home) | | | | | | | [phone] | | | | | | | 0 (Work) | | + +--------+ +--------+ + + Advance Directives + + + + + | Type | Date Recorded | Patient | Explanation | | | | Silver Designer | | + + + + + | Power of | | | | | Director Of Casework Department | | | | + + + [...]
--- OUTSIDE RECORDS SUMMARY | ~2019-08-24 | XMS | Encounter Summary ---
Demographics + + + | Address | [address] | | | [place] [address] | + + + | Home Phone [...] + | Author | [facility] | | | and Kamaljitana | + + + | Organization | [facility] | | | and [place] | + + + | Address | Unknown | + + + | Phone | Unavailable | + + + Support + + + + + | Name | Relationship | Address | Phone | + + + + + | India T[place]ley | ECON | [address] | | | | | [place], [...] Team Providers + +------+ + | Care House Mover Name | Role | Phone | + +------+ + PCP | Unavailable | + +------+ + Reason for Visit + + + | Reason | Comments | + + + | Referral | [facility] | + + + Encounter Details +--------+ + + + + | Date | Type | Department | Care Team | Description | +--------+ + + + + | 05/26/ | Documentati | PMG E JA | Carlos Jansen, | Referral ([facility] | | 2019 | on | INFECTIOUS DISEASES | MD [address] | [facility] | | | | [address] | [place] [address] | [place]) | | | | [place] | [phone] | | | | | [address] | | | | | | [phone] | | | +--------+ + + + [...] 11:27 AM PDTReferral was received 05/18 from [facility] requesting to change ID docs from Dr Min to Dr Jansen per Dr Muñoz's reque st for patient's osteomyelitis. Patient saw Dr Jansen [facility] and upon d/c she was moved to [...] home. I faxed back his note to [phone]. I did not enter a referral to avoid confusion with anna magaña current referral for Pako. Will discard additional records in 30 days. documented in this encou nter Plan of Treatment Not on filedocumented as of this encounter Visit Diagnoses Not on filedocumented in this encounter"
--- OUTSIDE RECORDS SUMMARY | ~2019-08-24 | XMS | Encounter Summary ---
Demographics + + + | Address | [address] | | | [place] [address] | + + + | Home Phone [...] | Author | [facility] | | | and Kamaljitana | + + + | Organization | [facility] | | | and [place] | + + + | Address | Unknown | + + + | Phone | Unavailable | + + + Support + + + + + | Name | Relationship | Address | Phone | + + + + + | India Tilley | ECON | [address] | | | | | [place], [place] | | | | | [address] | | + + + + + | Yina La | ECON | Unknown | | + + + + + | Yina Peterson | ECON | Unknown | | + + + + + | Leatha Casillas | ECON | Unknown | | + + + + + Care Team Providers + +------+ + | Care Loadmaster Name | Role | Phone | + +------+ + PCP | Unavailable | + +------+ + Encounter Details +--------+ + + + + | Date | Type | Department | Care Team | Description | +--------+ + + + + | 05/16/ | Abstract | [facility] | Gopi Muñoz | | | 2018 | | NEPHROLOGY [address] | M, DO [address] | | | | | [address] [facility] [address] | [place], [facility] [address] | | | | | [place], [place] | [place] | | | | | [address] | [address] | | | | | [phone] | | | +--------+ + + + [...]
--- OUTSIDE RECORDS SUMMARY | ~2019-08-24 | XMS | Encounter Summary ---
Demographics + + + | Address | [address] | | | [place] [address] | + + + | Home Phone [...] | Author | [facility] | | | and Kamaljit[place] | + + + | Organization | [facility] | | | and [place] | + + + | Address | Unknown | + + + | Phone | Unavailable | + + + Support + + + + + | Name | Relationship | Address | Phone | + + + + + | India Tilley | ECON | [address] | | | | | [place], [place] | | | | | [address] | | + + + + + | Yina La | ECON | Unknown | | + + + + + | Yina Peterson | ECON | Unknown | | + + + + + | Leatha Casillas | ECON | Unknown | | + + + + + Care Team Providers + +------+ + | Care Retail Department Manager Name | Role | Phone | + +------+ + PCP | Unavailable | + +------+ + Encounter Details +--------+ + + + + | Date | Type | Department | Care Team | Description | +--------+ + + + + | 07/23/ | Hospital | [facility] | Patricia, | | | 2006 - | Encounter | MED CTR CANCER | Venkatesh Forte MD [address] | | | | | [place] [address] | [facility] | | | 08/12/ | | [place], [place] | [place] [address] | | | 2006 | | [address] | [phone] | | | | | [phone] | | | +--------+ + + + [...]
--- OUTSIDE RECORDS SUMMARY | ~2019-08-24 | XMS | Encounter Summary ---
Demographics + + + | Address | [address] | | | [place] [address] | + + + | Home Phone [...] | Author | [facility] | | | and Kamaljit[place] | + + + | Organization | [facility] | | | and [place] | + + + | Address | Unknown | + + + | Phone | Unavailable | + + + Support + + + + + | Name | Relationship | Address | Phone | + + + + + | India Tilley | ECON | [address] | | | | | [place], [place] | | | | | [address] | | + + + + + | Yina La | ECON | Unknown | | + + + + + | Yina Peterson | ECON | Unknown | | + + + + + | Leatha Casillas | ECON | Unknown | | + + + + + Care Team Providers + +------+ + | Care Embroidery Cutter Name | Role | Phone | [...] + + | 10/06/ | Telephone | [facility] | Gopi Muñoz | Nephrology | | 2018 | | NEPHROLOGY [address] | M, DO [address] | Appointment | | | | [address] | [place] [place] [address] | | | | | [place], [place] | [place] | | | | | [address] | [address] | | | | | [phone] | | | +--------+ + + + [...]
--- OUTSIDE RECORDS SUMMARY | ~2019-08-24 | XMS | Encounter Summary ---
Demographics + + + | Address | [address] | | | [place] [address] | + + + | Home Phone [...] | Author | [facility] | | | and Kamaljitana | + + + | Organization | [facility] | | | and [place] | + + + | Address | Unknown | + + + | Phone | Unavailable | + + + Support + + + + + | Name | Relationship | Address | Phone | + + + + + | India Tilley | ECON | [address] | | | | | [place], [place] | | | | | [address] | | + + + + + | Yina La | ECON | Unknown | | + + + + + | Yina Peterson | ECON | Unknown | | + + + + + | Leatha Casillas | ECON | Unknown | | + + + + + Care Team Providers + +------+ + | Care Career Consultant Name | Role | Phone | + +------+ + PCP | Unavailable | + +------+ + Encounter Details +--------+ + + + + | Date | Type | Department | Care Team | Description | +--------+ + + + + | 11/08/ | Imaging | [facility] | Provider, | | | 2018 | Exam | MED CTR EXTERNAL | MD [address] | | | | | IMAGING | [address] | | | | | [phone] | [place] [address] | | +--------+ + + + + [...] for comparison only - no result from [place]. | [facility] | + + + + +---------+ + + | Performing | Address | City/State/Zipcode | Phone Number | | Organization | | | | + +---------+ + + | [facility] | | | | + +---------+ + + documented in this encounter Visit Diagnoses Not on filedocumented in this encounter"
--- OUTSIDE RECORDS SUMMARY | ~2019-08-24 | XMS | Encounter Summary ---
Demographics + + + | Address | [address] | | | [place] [address] | + + + | Home Phone [...] | Author | [facility] | | | and [place] | + + + | Organization | [facility] | | | and [place] | + + + | Address | Unknown | + + + | Phone | Unavailable | + + + Support + + + + + | Name | Relationship | Address | Phone | + + + + + | India Tilley | ECON | [address] | | | | | [place], [place] | | | | | [address] | | + + + + + | Yina La | ECON | Unknown | | + + + + + | Yina Peterson | ECON | Unknown | | + + + + + | Leatha Casillas | ECON | Unknown | | + + + + + Care Team Providers + +------+ + | Care Semiconductor Engineer Name | Role | Phone | + +------+ + | Renato Pierson 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 | | | | | region ([facility]) | | | [...] section. | | | | | region ([facility]) | | | | | | Osteomyelitis of | | | | | | thoracic vertebra | | | | | | ([facility]) | | + +--------+ + + + | C-REACTIVE PROTEIN | Routin | 05/18/2019 | Infection of | Results for this | | | e | 3:45 PM | intervertebral disc | procedure are in the | | | | PDT | (pyogenic), thoracic | results section. | | | | | region ([facility]) | | | | | | Osteomyelitis of | | | | | | thoracic vertebra | | | | | | ([facility]) | | + +--------+ + + + | COMPREHENSIVE | Routin | 05/18/2019 | Infection of | Results for this | | METABOLIC PANEL | e | 3:45 PM | intervertebral disc | procedure are in the | | | | PDT | (pyogenic), thoracic | results section. | | | | | region ([facility]) | | | | | | Osteomyelitis of | | | | | | thoracic vertebra | | | | | | ([facility]) | | + +--------+ + + + | CULTURE, BLOOD | Routin | 05/18/2019 | Infection of | Results for this | | | e | 3:08 PM | intervertebral disc | procedure are in the | | | | PDT | (pyogenic), thoracic | results section. | | | | | region ([facility]) | | | | | | Osteomyelitis of | | | | | | thoracic vertebra | | | | | | ([facility]) | | [...] | | | Absolute | performed at [facility];[address] | LAB | | | | [address] | | [facility] | | | | [address];[place] [address] | | LABORATORY | | + + + + + + + + | Specimen | + + | Blood | + + + + + + + | Performing | Address | City/State/Zipcode | Phone Number | | Organization | | | | + + + + + | REFERENCE LAB | [address] | [place] [address] | [phone] | | [facility] | [address] | | | | LABORATORY | | | | + + + + + | REFERENCE LAB | [address] | [place] [address] | | | [facility] | [address] | [...] | | | | | performed at [facility];[address] | | | | | | [address] | | | | | | [address];[place] [address] | | | | | | | | | | + + + + + + + + | Specimen | + + | Blood | + + + + + + + | Performing | Address | City/State/Zipcode | Phone Number | | Organization | | | | + + + + + | REFERENCE LAB | [address] | [place] [address] | [phone] | | [facility] | Bl[address] | | | | LABORATORY | | | | + + + + + | REFERENCE LAB | [address] | [place] [address] | | | [facility] | [address] | [...] REFERENCE | | | | performed at [facility];[address] | | LAB | | | | [address] | | [facility] | | | | [address];[place] [address] | | LABORATORY | | + + + + + + + + | Specimen | + + | Blood | + + + + + + + | Performing | Address | City/State/Zipcode | Phone Number | | Organization | | | | + + + + + | REFERENCE LAB | [address] [place] [address] | [place] [address] | [phone] | | [facility] | Bl[address] | | | | LABORATORY | | | | + + + + + | REFERENCE LAB | [address] [place] [address] | [place] [address] | | | [facility] | [address] | [...] REFERENCE | | | | performed at [facility];[address] | | LAB | | | | [address] | | [facility] | | | | [address];[place] [address] | | LABORATORY | | + + + + + + + + | Specimen | + + | Blood | + + + + + + + | Performing | Address | City/State/Zipcode | Phone Number | | Organization | | | | + + + + + | REFERENCE LAB | [address] | [place] [address] | [phone] | | [facility] | [address] | | | | LABORATORY | | | | + + + + + | REFERENCE LAB | [address] | [place] [address] | | | [facility] | [address] | [...] REFERENCE | | | | [facility];[address] | | LAB | | | | Blvd;[place] | | [facility] | | | | [id number]: Testing | | LABORATORY | | | | performed at [facility], [address] | | | | [address], | | | | | | [place] [address] | | | | + + + [...] + | REFERENCE LAB | [address] | [place] [address] | [phone] | | [facility] | Bl[address] | | | | LABORATORY | | | | + + + + + | REFERENCE LAB | [address] | [place] [address] | | | [facility] | Bl[address] | | | | LABORATORY [...]
--- OUTSIDE RECORDS SUMMARY | ~2019-08-24 | XMS | Encounter Summary ---
Demographics + + + | Address | [address] | | | [place] [address] | + + + | Home Phone [...] | Author | [facility] | | | and Kamaljitana | + + + | Organization | [facility] | | | and [place] | + + + | Address | Unknown | + + + | Phone | Unavailable | + + + Support + + + + + | Name | Relationship | Address | Phone | + + + + + | India Tilley | ECON | [address] | | | | [place], [place] | | | | | [address] | | + + + + + | Yina La | ECON | Unknown | | + + + + + | Yina Peterson | ECON | Unknown | | + + + + + | Leatha Casillas | ECON | Unknown | | + + + + + Care Team Providers + +------+ + | Care Infantryman Name | Role | Phone | + [...] Line | | | | [address] [place] | [place] [address] | | | | | [address] | [phone] | | | | | [phone] | | | +--------+---------+ + + + [...] Up Appointments: ELI BALL [address] [facility] [id number] [facility] [address] [place] [id number] [facility] [address] [facility] [phone] Discharge Disposition: Home with Home Health Consultants This Admission: ID, Nephrology Hospital Course: 73-year-old female with history of ESRD on hemodialysis, hypertension, type 2 diabetes, hyp othyroidism, chronic anemia, hyperlipidemia with a history of stroke transferred from [facility] for evaluation of T11-T12 lesion noted on [...] to SNF ([facility] in [place], [place] - of which has accepted her and [...] dialysis days after dialysis Osteomyelitis/Discitis of T11, [id number] -MRI spine 03/23/19: "mild paravertebral soft tissue [...] dialysis patient - has OP clinic in [place] already Macrocytic anemia likely secondary to-likely anemia [...] Value Units Date/Time Culture, Aerobic + Anaerobic [[id number]] Collected: 03/24/191513 Order Status: Completed Lab Status: Final result Updated: 03/29/19717 Specimen: Body Fluid from Vertebrae, Thoracic FINAL REPORT -- No Growth No anaerobes isolated Gram Stain Few Neutrophils No squamous epithelial cells seen No organisms seen Comment: Performed by [facility] [address] [place] [address] Gram Stain [[id number]] Collected: 03/24/19 151 Order Status: Canceled Lab Status: No result Updated: 03/24/19 151 Specimen: Body Fluid from Vertebrae, Thoracic Culture, AFB Smear [[id number]] Collected: 03/24/191513 Order Status: Completed Lab Status: Preliminary result Updated: 03/25/19 1054 Specimen: Body Fluid from Vertebrae, Thoracic AFB Smear Result No Acid Fast Bacilli Seen Comment: Performed by [facility] [address] [place] [address] Culture, Fungus, Smear [[id number]] Collected: 03/24/19 151 Order Status: Completed Lab Status: Preliminary result Updated: 03/25/19 1039 Specimen: Body Fluid from Vertebrae, Thoracic CALCOFLUOR No fungal elements seen Comment: Performed by [facility] [address] [place] [address] Culture, Blood [[id number]] Collected: 03/23/19 2333 Order Status: Completed Lab Status: Final result Updated: 03/28/19 2352 Specimen: Blood Culture No growth after 5 days incubation. Culture, Blood [[id number]] Collected: 03/23/19 2255 Order Status: Completed Lab Status: Final result Updated: 03/28/19 1125 Specimen: Blood Culture No growth after 5 [...] this chart may have been created with LiveBid voice recognition software. Occasi onal wrong-word or [...] | | | ([facility]), Right hip | | | | [...] 03/31/2019 5:42 PM PDTPatient left with family, [facility] and i nstructions received before discharge and RX's filled at outpt pharmacy. VSS, ambulating wit h SBA, A&O x4, accepting of discharge. Dialysis completed this AM. Pain controlled with q4 o xy, LD 1400. Home health will f/u tomorrow. AVS reviewed and sent with patient, verbalized u nderstanding. Merry Hess SONG PLUGGER - 03/31/2019 11:05 AM PDTSOCIAL WORK PLAN: Home with [facility] NEXT STEPS: 1. Pt to follow up with [facility] 2. [facility] to follow up with pt at dc INTERVENTION: SW spoke with [facility], pt has a $2.50 out of pocket cost weekly, pt is agreeable to pay for this. Therefore pt will dc today with [facility]. ROBIN provided [facility] with hard script for IV abx. ROBIN faxed over HH order to [facility], ROBIN faxed over IV vanco script to [facility]. [facility] notified of pt's dc home. notified. [facility]ie to meet with pt later this afternoon for teach. ROBIN provided pt with 3 gas cards to assist with transportation. No further dc needs identified. SW received call from [facility] HD clinic that they cannot provide IV Vanco as Vanco h as not been consigned by Associate Artistic Director that has privileges in [place]. IV Vanco will now be done b y [facility], [address] [place] faxed over hard script to Candie. They will have both IV Abx ready and will teach pt shortly. No further dc needs identified. CONTACTS: Yina La: sister India Tilley: sister [place] Transportation: [place] Medicaid Transportation fax: [phone] [facility]: [phone] fax: [phone] [place] [phone] [facility]: [phone] [facility]: [phone] [facility] FAX: [phone] Camryn Michelle DO Brandon - 03/31/2019 10:12 AM PDT Patient: Estefani Tilley Date of : 1945 Admit Date: 03/24/2019 Date of Service: 03/31/2019 PCP: Francisca Womack PA-C Hospital Day: Hospital Day: 8 Hospital Course: 73-year-old female with history of ESRD on hemodialysis, hypertension, type 2 diabetes, hyp othyroidism, chronic anemia, hyperlipidemia with a history of stroke transferred from [facility] for evaluation of T11-T12 lesion noted on [...] initially had planned to go to SNF ([facility] in [place], [place] - of which has accepted her [...] dialysis patient - has OP clinic in [place] already Macrocytic anemia likely secondary to-likely anemia [...] hoping to arrange home IV antibiotics through [facility]. Awaiting to see if insurance will cover [...] - 99 mg/dL Final Comment: Performed by [facility] [address] [place] [address] 03/30/2019 21:14 200 (H) 65 - 99 mg/dL Final Comment: Performed by [facility] [address] [place] [address] 03/30/2019 17:46 111 (H) 65 - 99 mg/dL Final Comment: Performed by [facility] [address] [place] [address] 12/09/2018 18:05 113 (H) 70 - 109 [...] this chart may have been created with LiveBid voice recognition software. Occasi onal wrong-word or sound-alike substitutions may have occurred due to the inherent mckeon itations of voice recognition software. Please read the chart carefully and recognize, using context, where these substitutions have occurred rgJesus mcdonald MD - 03/31/2019 8:26 AM PDT . Infectious Diseases Progress Note Pt. Name/Age/: Estefani Tilley 73 y.o. 1945 Med. Record Number: [id number] Date of admission: 03/24/2019 Patient admitted with [...] Electronically signed by: Jesus Whitney, 03/31/2019 8:26 [facility] Robb Phillips, PharmD - 03/31/2019 7:25 AM PDTFormatting of this note might be different from the [facility] nal. Pharmacy Progress Note VANCOMYCIN PER [...] (H)). Lab Results Component [facility] 03/31/2019 04:12 I/O last 3 completed shifts: In: 1810 [P.O.:1810] Out: 0 No intake/output data recorded. Micro/Cultures: BCx - NGTD, BiopsyCx - NGTD Per P&T-approved Vancomycin Protocol Electronically signed by: Robb Wheeler PharmD 03/31/2019 7:25 su, Randy Nunez MD - 03/30/2019 9:45 PM PDT [facility] INPATIENT ROUNDING NOTE Date of Service: 03/30/2019 Rounding Physician: Randy Corrigan MD Patient Name: Estefani Tilley : 1945 Medical Record: [id number] Hospital Summary: Estefani Tilley is a 73 y.o. female with a PMHx of ESRD, HTN, Dm type 2, hypothyroidism, HLd, CVA who is under the care of Dr Muñoz at [facility] who dialyzes MWF admitted with possible osteo [...] Trace Corrigan MD, 03/30/2019, 21:45 etNan wilkes, SONG PLUGGER - 03/30/2019 2:34 PM PDT SOCIAL WORK D/C PLAN:DC home with [facility] providing IV-ABX and [facility] providing picc care and lab draws vs [facility] NEXT STEPS: -SW will need to follow up with [facility] regarding providing IV-ABX to pt. -SW will need to follow up with [facility] regarding providing picc care and lab draws. -SW will need to follow up with [facility] regarding having pt receive vanco do [...] INTERVENTION:SW spoke with pt regarding acceptance to [place]. Pt is now wanting to go home with IV-ABX. SW spoke with [facility]. They go out to [place], [place] and have openings for nursing care. Referral faxed to [facility]. Pt is amenable to using [facility] for IV-ABX. SW spoke with [facility] liasion who will run pt's be nefits to see if she can DC home with IV-ABX. Pt states that [facility] can provide teach to her son to help administer IV-ABX. SW left message for [facility] to see if they can provide [facility] on Wednesday, Wednesday and Wednesday if pt is able to go home. Pt states that she does dialysis on Wednesday, Wednesday and Wednesday from 12:00-4:00. SW received phone call from [place]. They have accepted pt for admission if [...] anemia,hyperlipidemia, hx of stroke [facility]12 lesion noted on MRI concerning fo r osteomyelitis. ROBIN met with pt's sister, Yina, and her cousin, Keri, who were waiting in pt's room while s he was in dialysis. ROBIN will need to follow up with pt re: d/c planning. Pt's sister and cousin related that pt mostly lives at Yina's house outside [place], [place], but does not like to be tied down because she enjoys attending [place] festivals and many events. She does at tend dialysis weekly. Pt has a vehicle and is very independent. D/C TRANSPORT:Pt can be transported home or to [place] via family in a private car. They will need gas cards to help pay for transportation. BARRIERS TO D/C:none CONTACTS: Yina La: sister India Tilley: sister [place] Transportation: [place] Medicaid Transportation fax: [phone] [facility]: [phone] fax: [phone] [place] [phone] [facility]: [phone] [facility]: [phone] [facility] FAX: [phone] Nan Cheney MSW - 03/30/2019 12:57 PM PDTSOCIAL WORK D/C PLAN:SNF: [place] NEXT STEPS:Await bed availability INTERVENTION: ROBIN called and left message for Roneugene at [facility] regarding if they are willing to accept pt and to discuss transportation to and from dialysis. SW also called and left message for [place] Medicaid transportation regarding if they can transp ort pt to and from dialysis upon DC. Pt states that she goes to [facility] dialys is in [place], [place] on Wed, Wed, and Fridays from 12:00-4:00 pm. SW left message with [facility] dialysis regarding if there was any way that they may also be able to help with transportation to and from dialysis while pt is in rehab and to ensure that pt still has her chair time scheduled. [facility] is only open M on, Wednesday and Wednesday. ASSESSMENT/CHART REVIEW:73 yr old femalewith a history of ESRD on hemodialysis, hypertens ion, type 2 diabetes, hypothyroidism,chronic anemia,hyperlipidemia, hx of stroke [facility] noted on MRI concerning fo r osteomyelitis. ROBIN met with pt's sister, Yina, and her cousin, Keri, who were waiting in pt's room while s he was in dialysis. ROBIN will need to follow up with pt re: d/c planning. Pt's sister and cousin related that pt mostly lives at Yina's house outside [place], [place], but does not like to be tied down because she enjoys attending [place] festivals and many events. She does at tend dialysis weekly. Pt has a vehicle and is very independent. D/C TRANSPORT:tbd BARRIERS TO D/C:none CONTACTS: Yina La: sister India Tilely: sister [place] Transportation: [place] Transportation fax: [phone] [facility]: [phone] fax: [phone] [place] [phone] [facility]: [phone] signed by JENNIFER Xavier at 03/30 1:09 [...] with a history of stroke transferred from [facility] for evaluation of T11-T12 lesion [...] awaiting to hear from [facility], in [place] regarding possible acceptance. She is improved overall and medic ally ready for discharge. She is a chronic dialysis patient, Nephrology is following for on going dialysis needs. She will need three times weekly dialysis while at [facility] as well. SW t o help [...] dialysis patient - has OP clinic in [place] already ---> will need SW to help [...] SNF - awaiting to hear back from [place], in [place] regarding possible acceptance there. Medically ready [...] Single Lumen 03/24/19 2143 Left Lateral Forearm tbfd-zha-tahffm daniel ter system 20 gauge;1 / in [...] - 99 mg/dL Final Comment: Performed by [facility] [address] [place] [address] 03/29/2019 21:09 157 (H) 65 - 99 mg/dL Final Comment: Performed by [facility] [address] [place] [address] 03/29/2019 18:50 91 65 - 99 mg/dL Final Comment: Performed by [facility] [address] [place] [address] 12/09/2018 18:05 113 (H) 70 - 109 [...] this chart may have been created with LiveBid voice recognition software. Occasi onal wrong-word or sound-alike substitutions may have occurred due to the inherent mckeon itations of voice recognition software. Please read the chart carefully and recognize, using context, where these substitutions have occurred rgJesus mcdonald MD - 03/30/2019 7:15 AM PDT . Infectious Diseases Progress Note Pt. Name/Age/: Estefani Tilley 73 y.o. 1945 Med. Record Number: [id number] Date of admission: 03/24/2019 Patient admitted with [...] Electronically signed by: Jesus Whitney, 03/30/2019 7:15 [facility] Mary Wade RN - 03/30/2019 6:16 [...] Bowel Movement: Stool Occurrence: 1(pt reported) (03/27/19 493) Active Infusions: dextrose 10% Skin: Skin Integrity: [...] has depression wishful of Monitoring Requirements [facility] Suicide Policy [facility] Suicide Risk/Telesitter [...] POCGLU 112 (H) 12/08/2018 0650 Merry Hess SONG PLUGGER - 03/29/2019 4:18 PM PDTSOCIAL WORK D/C PLAN:SNF: [place] NEXT STEPS:Await bed availability INTERVENTION: SW called [...] anemia,hyperlipidemia, hx of stroke [facility] lesion noted on MRI concerning fo r osteomyelitis. SW met with pt's sister, Yina, and her cousin, Keri, who were waiting in pt's room while s he was in dialysis. SW will need to follow up with pt re: d/c planning. Pt's sister and cousin related that pt mostly lives at Yina's house outside [place], [place], but does not like to be tied down because she enjoys attending [place] festivals and many events. She does at tend dialysis weekly. Pt has a vehicle and is very independent. D/C TRANSPORT:tbd BARRIERS TO D/C:none CONTACTS: Yina La: sister India Tilley: sister [place] Medicaid Transportation: [facility]: [phone] fax: [phone] [place] [phone] signed by JENNIFER Contreras at 03/29/2019 4:20 PM PDTHsu, Randy Nunez MD - 03/29/2019 12:32 PM PDT [facility] INPATIENT ROUNDING NOTE Date of Service: 03/29/2019 Rounding Physician: Randy Corrigan MD Patient Name: Estefani Tilley : 1945 Medical Record: [id number] Hospital Summary: Estefani Tilley is a 73 y.o. female with a PMHx of ESRD, HTN, Dm type 2, hypothyroidism, HLd, CVA who is under the care of Dr Muñoz at [facility] who dialyzes MWF admitted with possible osteo [...] with a history of stroke transferred from [facility] for evaluation of T11-T12 lesion noted on [...] dialysis patient - has OP clinic in [place] already ---> will need SW to help [...] SNF - awaiting to hear back from [place], in [place] regarding possible acceptance there. Could possibly [...] Single Lumen 03/24/19 2143 Left Lateral Forearm lixl-ibo-nyjksk daniel ter system 20 gauge;1 1/4 in [...] - 99 mg/dL Final Comment: Performed by [facility] [address] [facility] [address] 03/28/2019 21:06 144 (H) 65 - 99 mg/dL Final Comment: Performed by [address] [facility] [place] [address] 03/28/2019 11:22 119 (H) 65 - 99 mg/dL Final Comment: Performed by [facility] [address] [place] [id number] 12/09/2018 18:05 113 (H) 70 - 109 [...] this chart may have been created with LiveBid voice recognition software. Occasi onal wrong-word or [...] Tilley 73 y.o. 1945 Med. Record Number: [id number] Date of admission: 03/24/2019 Patient admitted with [...] Electronically signed by: Jesus Whitney, 03/29/2019 7:35 [facility] zech, Carolina Restrepo RN - 03/28/2019 7:08 PM [id number] - Report called to [facility] RN. Pt's belongings . I pad and I phone w/ chargers as well as pt's purse, and shoes, and shirt and pants all sent with her to [address] [place] [address]. Pt had been sitting up eating dinner. [...] for time spent with her. Noti fied [address] [place] [address] RN of pt's recent loss. Transferred at [...] with a history of stroke transferred from [facility] for evaluation of T11-T12 lesion noted on [...] Single Lumen 03/24/19 2143 Left Lateral Forearm awbr-mkt-ijfyec daniel ter system 20 gauge;1 1/4 in [...] - 99 mg/dL Final Comment: Performed by [facility] [address] [place] [address] 03/28/2019 07:09 75 65 - 99 mg/dL Final Comment: Performed by [facility] [address] [place] [address] 03/27/2019 20:38 109 (H) 65 - 99 mg/dL Final Comment: Performed by [facility] [address] [place] [address] 12/09/2018 18:05 113 (H) 70 - 109 [...] this chart may have been created with LiveBid voice recognition software. Occasi onal wrong-word or sound-alike substitutions may have occurred due to the inherent mckeon itations of voice recognition software. Please read the chart carefully and recognize, using context, where these substitutions have occurred Cordell Mcgarry, [facility] - 03/28/2019 2:57 PM PDTSOCIAL WORK D/C PLAN: SNF: [place] NEXT STEPS: Await bed availability INTERVENTION: On-going dc planning. Rec'd update from [place]. They confirm they have r ec'd clinical notes and are currently reviewing. SW will follow. ASSESSMENT/CHART REVIEW:73 yr old femalewith a history of ESRD on hemodialysis, hypertens ion, type 2 diabetes, hypothyroidism,chronic anemia,hyperlipidemia, hx of stroke [facility] lesion noted on MRI concerning fo r osteomyelitis. SW met with pt's sister, Yina, and her cousin, Keri, who were waiting in pt's room while s he was in dialysis. SW will need to follow up with pt re: d/c planning. Pt's sister and co usin related that pt mostly lives at Yina's house outside [facility], [place], but does not like to be tied down because she enjoys attending [place] festivals and many events. She does atten d dialysis weekly. Pt has a vehicle and is very independent. D/C TRANSPORT: tbd BARRIERS TO D/C: none CONTACTS: Yina La: sister India Tilley: sister [facility]: [phone] fax: [phone] [place] [phone] illum, Mario Alberto morales MD - 03/28/2019 7:34 AM PDTFormatting of this note might be different from the [facility] Infectious Diseases Progress Note Pt. Name/Age/: Estefani Tilley 73 y.o. 1945 Med. Record Number: [id number] Date of admission: 03/24/2019 Patient admitted with [...] Electronically signed by: Carlos Jansen, 03/28/2019 7:34 [facility] Katey Solis MD - 03/27/2019 8:58 PM PDT Patient: Estefani Tilley Date of : 1945 Admit Date: 03/24/2019 Date of Service: 03/27/2019 PCP: Francisca Womack PA-C Hospital Day: Hospital Day: 4 Hospital Course: 73-year-old female with history of ESRD on hemodialysis, hypertension, type 2 diabetes, hyp othyroidism, chronic anemia, hyperlipidemia with a history of stroke transferred from [facility] for evaluation of T11-T12 lesion noted on MRI concerning for osteomyeliti s. Infectious disease consulted. Status post aspiration from her thoracic spine, Gram stain negative, cultures pending. Rosemary ent started on empiric vancomycin and cefepime. Will need 6 weeks of IV antibiotics. Discussed with nephrology, recommend placement of Tillman catheter instead of PICC line for [facility] IV antibiotics. Nephrology following for maintenance hemodialysis. SW following for SNF. Assessment and Plan: Assessment of active problems addressed today: Osteomyelitis/discitis of T11, T12 vertebra Afebrile, improved WBC count, improved CRP Status post aspiration from her thoracic spine, Gram stain negative, cultures pending- [facility] Infectious disease help appreciated Continue vancomycin and cefepime Echocardiogram negative for any endocarditis. Patient will need IV antibiotics for 6 weeks. Continue probiotic Discussed with nephrology, recommend placement of Tillman catheter instead of PICC line for [facility] IV antibiotics. Pain management -trial of lidocaine [...] Single Lumen 03/24/19 2143 Left Lateral Forearm crvc-mbw-zkymju daniel ter system 20 gauge;1 09/16 in [...] - 99 mg/dL Final Comment: Performed by [facility] [address] [place] [address] 03/27/2019 13:58 82 65 - 99 mg/dL Final Comment: Performed by [facility] [address] [place] [address] 03/27/2019 06:39 83 65 - 99 mg/dL Final Comment: Performed by [facility] [address] [place] [address] 12/09/2018 18:05 113 (H) 70 - 109 [...] this chart may have been created with LiveBid voice recognition software. Occasi onal wrong-word or sound-alike substitutions may have occurred due to the inherent mckeon itations of voice recognition software. Please read the chart carefully and recognize, using context, where these substitutions have occurred Darlin Mcgarry, [facility] - 03/27/2019 3:17 PM PDTSOCIAL WORK D/C PLAN: SNF: [place] NEXT STEPS: Await bed availability INTERVENTION: [facility] She states the contracted f acility near pt's home is [place]. Spoke with pt and with sister India. Referral and (-) Pasrr sent to [facility]. Copy of Pasrr placed in light chart with request to file into jos rds. SW will follow. ASSESSMENT/CHART REVIEW:73 yr old femalewith a history of ESRD on hemodialysis, hypertens ion, type 2 diabetes, hypothyroidism,chronic anemia,hyperlipidemia, hx of stroke [facility]12 lesion noted on MRI [...] be tied down because she enjoys attending [place] festivals and many events. She does atten d dialysis weekly. Pt has a vehicle and is very independent. D/C TRANSPORT: tbd BARRIERS TO D/C: none CONTACTS: Yina La: sister India Tilley: sister [facility]: [phone] fax: [phone] [place] [phone] Gregg Mcgarry CLERICAL ADMINISTRATIVE ASSISTANT - 03/27/2019 2:17 PM PDTFormatting of this note might be different from jerald more. SOCIAL WORK D/C PLAN: SNF NEXT STEPS: SW to follow up with pt regarding SNF preference INTERVENTION: On-going dc planning, chart reviewed and met with pt. Discussed need of long term care administrator IV abx, Discussed options. Provided list of [...] be tied down because she enjoys attending [place] festivals and many events. She does atten d dialysis weekly. Pt has a vehicle and is very independent. ASSESSMENT/CHART REVIEW:73 yr old femalewith a history of ESRD on hemodialysis, hypertens ion, type 2 diabetes, hypothyroidism,chronic anemia,hyperlipidemia, hx of [facility] noted on MRI concerning fo r osteomyelitis. D/C TRANSPORT: tbd BARRIERS TO D/C: none CONTACTS: Yina La Sister [phone] India Tilley Sister [phone] Irish Cadet, Cadmium Liquor Maker - 03/27/2019 1:33 PM PDTFormatting of this [...] mg/dL (H)). Lab Results Component Value Date/Time VANCRED CLOUDNDOM 17.7 03/27/2019 05:12 I/O last 3 completed shifts: In: 360 [P.O.:360] Out: 1 [Urine:1] I/O this shift: In: - Out: 2000 Micro/Cultures: BCx - NGTD, BiopsyCx - NGTD Per P&T-approved Vancomycin Protocol Electronically signed by: Aimee Carroll, Cadmium Liquor Maker 03/27/2019 13:33Electronically si gned by Ray Joel, PharmD at 03/27/2019 2:04 PM PDT Associated attestation - Ray Joel PharmD - 03/27/2019 2:04 PM PDTI reviewed and agr ee with the assessment and plan. Ray Joel PharmD 03/27/2019 14:04 Randy Corrigan MD - 03/27/2019 10:52 AM PDT [facility] INPATIENT ROUNDING NOTE Date of Service: 03/27/2019 Rounding Physician: Randy Corrigan MD Patient Name: Estefani Tilley : 1945 Medical Record: [id number] Hospital Summary: Estefani Tilley is a 73 y.o. female with a PMHx of ESRD, HTN, Dm type 2, hypothyroidism, HLd, CVA who is under the care of Dr Muñoz at [facility] who dialyzes MWF admitted with possible osteo [...] Tilley 73 y.o. 1945 Med. Record Number: [id number] Date of admission: 03/24/2019 Patient admitted with [...] Electronically signed by: Carlos Jansen, 03/27/2019 7:10 [facility] Katey Solis MD - 03/26/2019 5:40 PM PDT Patient: Estefani Tilley Date of : 1945 Admit Date: 03/24/2019 Date of Service: 03/26/2019 PCP: Francisca Womack PA-C Hospital Day: Hospital Day: 3 Hospital Course: 73-year-old female with history of ESRD on hemodialysis, hypertension, type 2 diabetes, hyp othyroidism, chronic anemia, hyperlipidemia with a history of stroke transferred from [facility] for evaluation of T11-T12 lesion noted on [...] Single Lumen 03/24/19 2143 Left Lateral Forearm hrii-ymp-huzeln daniel ter system 20 gauge;1 09/16 in [...] - 99 mg/dL Final Comment: Performed by [facility] [address] [place] [address] 03/26/2019 06:49 116 (H) 65 - 99 mg/dL Final Comment: Performed by [facility] [address] [place] [address] 03/25/2019 20:37 110 (H) 65 - 99 mg/dL Final Comment: Performed by [facility] [address], [place] [address] 12/09/2018 18:05 113 (H) 70 - 109 [...] this chart may have been created with LiveBid voice recognition software. Occasi onal wrong-word or sound-alike substitutions may have occurred due to the inherent mckeon itations of voice recognition software. Please read the chart carefully and recognize, using context, where these substitutions have occurred Jose Gamez, Pharmacy R esident - 03/26/2019 10:52 AM PDTFormatting of this note might be different from [facility] Progress Note VANCOMYCIN PER [...] Vancomycin Protocol Electronically signed by: Jose Menard, Cadmium Liquor Maker 03/26/2019 10:52 sRandy carter MD - 03/26/2019 1 0:38 AM PDT [facility] INPATIENT ROUNDING NOTE Date of Service: 03/26/2019 Rounding Physician: Randy Corrigan MD Patient Name: Estefani Tilley : 1945 Medical Record: [id number] Hospital Summary: Estefani Tilley is a 73 y.o. female with a PMHx of ESRD, HTN, Dm type 2, hypothyroidism, HLd, CVA who is under the care of Dr Muñoz at [facility] who dialyzes MWF admitted with possible osteo disccitis t11/t12 ASSESSMENT AND PLAN 1. ESRD/HD dependent Access is LUE AVF working well No indications for HD today Usually dialyzes MWF at [facility] Hd tommorow 2. Anemia Hg at goal [...] Tilley 73 y.o. 1945 Med. Record Number: [id number] Date of admission: 03/24/2019 Patient admitted with [...] Electronically signed by: Carlos Jansen, 03/26/2019 8:03 [facility] Katey Solis MD - 03/25/2019 3:50 PM PDT Patient: Estefani Tilley Date of : 1945 Admit Date: 03/24/2019 Date of Service: 03/25/2019 PCP: Francisca Womack PA-C Hospital Day: Hospital Day: 2 Hospital Course: 73-year-old female with history of ESRD on hemodialysis, hypertension, type 2 diabetes, hyp othyroidism, chronic anemia, hyperlipidemia with a history of stroke transferred from [facility] [place] for evaluation of T11-T12 lesion noted on [...] Single Lumen 03/24/19 2143 Left Lateral Forearm uqlt-coz-rncizg daniel ter system 20 gauge;1 1/4 in [...] Biplane EF 62 % LV ED Volume (Ilma's) 121 ml LV ED Volume Index 70 [...] - 99 mg/dL Final Comment: Performed by [facility] [address] [place] [address] 03/25/2019 06:52 107 (H) 65 - 99 mg/dL Final Comment: Performed by [facility] [address] [place] [address] 03/24/2019 20:11 112 (H) 65 - 99 mg/dL Final Comment: Performed by [facility] [address] [place] [address] 12/09/2018 18:05 113 (H) 70 - 109 [...] this chart may have been created with LiveBid voice recognition software. Occasi onal wrong-word or sound-alike substitutions may have occurred due to the inherent mckeon itations of voice recognition software. Please read the chart carefully and recognize, using context, where these substitutions have occurred su, Randy Nunez MD - 0 03/25/2019 1:47 PM PDT [facility] INPATIENT ROUNDING NOTE Date of Service: 03/25/2019 Rounding Physician: Randy Corrigan MD Patient Name: Estefani Tilley : 1945 Medical Record: [id number] Hospital Summary: Estefani Tilley is a 73 y.o. female with a PMHx of ESRD, HTN, Dm type 2, hypothyroidism, HLd, CVA who is under the care of Dr Muñoz at [facility] who dialyzes MWF admitted with possible osteo disccitis t11/t12 ASSESSMENT AND PLAN 1. ESRD/HD dependent Access is LUE AVF working well No indications for HD today Usually dialyzes MWF at [facility] She is below her EDW an EDW [...] by: Trace Corrigan MD, 03/25/2019, 13:47 ettlerNan, SONG PLUGGER - 03/25/2019 10:49 AM PDT SOCIAL WORK [...] mostly lives at Yina's house outside [facility], [place], but does not like to be tied down because she enjoys attending [place] festivals and many events. She does atten d dialysis weekly. Pt has a vehicle and is very independent. ASSESSMENT/CHART REVIEW:73 yr old femalewith a history of ESRD on hemodialysis, hypertens ion, type 2 diabetes, hypothyroidism,chronic anemia,hyperlipidemia, hx of stroke [facility] lesion noted on MRI concerning fo r osteomyelitis. D/C TRANSPORT: tbd BARRIERS TO D/C: none CONTACTS: Yina La Sister [phone] India Tilley Sister [phone] Carlos Gonzales M D - 03/25/2019 8:34 AM PDT Infectious Diseases Progress Note Pt. Name/Age/: Estefani Tilley 73 y.o. 1945 Med. Record Number: [id number] Date of admission: 03/24/2019 Patient admitted with [...] Electronically signed by: Carlos Jansen, 03/25/2019 8:34 [facility] Jose Gamez, Cadmium Liquor Maker - 03/24/2019 10:46 PM PDTFormatting of this [...] Vancomycin Protocol Electronically signed by: Jose Menard, Cadmium Liquor Maker 03/24/2019 22:46 ladys England MSW - 9 [...] pt mostly lives at Yina's house outside [place], [place], but do es not like to be tied down because she enjoys attending [place] festivals and many events. She does attend dialysis weekly. Pt has a vehicle and is very independent. ASSESSMENT/CHART REVIEW:73 yr old female with a history of ESRD on hemodialysis, hypertensi on, type 2 diabetes, hypothyroidism, chronic anemia, hyperlipidemia, hx of stroke transferre d from [facility] for evaluation of T11-T12 lesion noted on MRI concerning for ost eomyelitis. D/C TRANSPORT: tbd BARRIERS TO D/C: none CONTACTS: Yina La Sister [phone] India Tilley Sister [phone] Katey Solis MD - 03/24/2019 3:53 PM PDTPatient seen and examined. Chart reviewed. Briefly, 73-year-old female with history of ESRD on hemodialysis, hypertension, type 2 diab etes, hypothyroidism, chronic anemia, hyperlipidemia with a history of stroke transferred fr om [facility] for evaluation of T11-T12 lesion noted on [...] not have any p raza, consider antidepressants. 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 2. Target Trough: 15-20 mcg/ml 3. [...] Procedure Component Value Units Date/Time Culture, Blood [[id number]] Collected: 03/23/192332 Order Status: Sent Lab Status: In process Updated: 03/23/192348 Specimen: Blood Culture, Blood [[id number]] Collected: 03/23/192254 Order Status: Sent Lab Status: [...] | + +--------+ + + + | JIMMEI ARTEAGA SMEAR | Routin | 03/24/2019 | [...] | [facility] | | | POC | [facility] [address], | | SACRED | | | | [place] [address] | | HEART | | | |Performed by [facility] [address], [place] [address] | | MEDICAL | | | | [...] + | BETH LIZ | [address] | [place] [address] | | | [facility] | | | | | [...] | [facility] | | | POC | [facility] [address], | | SACRED | | | | [place], [place] | | HEART | | | |Performed by [facility] [address], [place], [place] | | MEDICAL | | | [...] SACRED | [address] | [place], [place] | | | [facility]ART [facility]ICAL [facility]ENTER [...] | | LABORATORY | | | | [facility] [address] [place], | | CERNER | | | | [place] [address] | | | | + + + + + + + + | Specimen | + + | Blood specimen | | (specimen) | + + + + + + + | Performing | Address | City/State/Zipcode | Phone Number | | Organization | | | | + + + + + | BETH LIZ | [address] | [place] [address] | | | [facility] | | | | | [...] ENCE | | | Immature | by [facility] [address], | K/uL | SACRED | | | Granulocyte | [place] [address] | | HEART | | | s |Performed by [facility] [address], [place] [address] | | MEDICA L | | | [...] | PROVIDEJOSE AE AGUSTO | [address] | [place] [address] | | | [facility] | | | | | [...] by | | | | | | [facility] [address], | | | | | | [place] [address] | | | | + + + + + + + + | Specimen | + + | Blood specimen | | (specimen) | + + + + + + + | Performing | Address | City/State/Zipcode | Phone Number | | Organization | | | | + + + + + | PROVID[facility] AE SACRED | [address] | [place] [address] | | | HEART [facility] | | | | [...] | | | POC | Performed by [facility] [address] | | SACRED | | | | [address] [place], [place] | | HEART | | | | [address] | | MEDICAL | | | | [...] + | BETH LIZ | [address] | [place] [address] | | | [facility] | | | | | [...] | | | POC | Performed by [facility] [address] | | SACRED | | | | [address] [place], [place] | | HEART | | | | [address] | | MEDICAL | | | | [...] | [address] | [place] [address] | | | [facility]ENTER | [...] | | | POC | Performed by [facility] [address] | | SACREVANS | | | | [address], [place] | | HEART | | | | [address] | | MEDICAL | | | | [...] + | BETH LIZ | [address] | [place] [address] | | | [facility] | | | | | [...] | | | POC | Performed by [facility] [address] | | SACRED | | | | [address], [place] | | HEART | | | | [address] | | MEDICAL | | | | [...] SACRED | [address] | [place], [place] | | | HEART [facility] | | | | | LABORATORY [...] PROVIDE NCE | | | | by [facility] [address], | | SACRED | | | | [place] | | HEART | | | |Performed by [facility] [address] [facility] [address], [place], [place] | | MEDICAL | | | [...] + + | BETH LIZ | [address] | [place] [address] | | | [facility] | | | | | [...] LUIS CE | | | | by [facility] [address], | | SACRED | | | | [place] [address] | | HEART | | | |Performed by [facility] [address], [place] [address] | | MEDICAL | | | | [...] + + | JIMRENUKA LIZ | [address] | [place] [address] | | | [facility] | | | | | [...] | | LABORATORY | | | | [facility] [address], | | CERNER | | | | [place] [address] | | | | + + + + + + + + | Specimen | + + | Blood specimen | | (specimen) | + + + + + + + | Performing | Address | City/State/Zipcode | Phone Number | | Organization | | | | + + + + + | BETH LIZ | [address] | [place] [address] | | | [facility] | | | | | [...] ENCE | | | Counted | by [facility] [address] [address], | | SACRED | | | | [place] [address] | | HEART | | | |Performed by [facility] [address] [place], [place] [address] | | MEDICA L | | | [...] + | BETH LIZ | [address] | [place] [address] | | | [facility] | | | | | [...] | | | POC | Performed by [facility] [address] | | SACRED | | | | [address] [place] | | HEART | | | | [address] | | MEDICAL | | | | [...] SACRED | [address] | [place] | | | [facility] | | | | | [...] PROVIDEJOSE AE | | | POC | [facility] [address], | | SACRED | | | | [place] | | HEART | | | |Performed by [facility] [address], [place] [address] | | MEDICAL | | | | [...] + | BETH LIZ | [address] [place] | [place] [address] | | | HEART MEDICAL CENTER | [...] | | | POC | Performed by [facility] [address] | | SACRED | | | | [address] [place], [place] | | HEART | | | | [address] | | MEDICAL | | | | [...] + | BETH LIZ | [address] | [place] [address] | | | [facility] | | | | | [...] PROVIDEJOSE AE | | | POC | [facility] [address], | | SACRED | | | | [place] [address] | | HEART | | | |Performed by [facility] [address], [place] | | MEDICAL | | | [...] | [address] | [place] | | | [facility] | | | | | [...] by | | | | | | [facility] [address], | | | | | | [place] [address] | | | | + + + + + + + + | Specimen | + + | Blood specimen | | (specimen) | + + + + + + + | Performing | Address | City/State/Zipcode | Phone Number | | Organization | | | | + + + + + | BETH LIZ | [address] | [place] [address] | | | [facility] | | | | | [...] ENCE | | | Counted | by [facility] [address], | | SACRED | | | | [place] [address] | | HEART | | | |Performed by [facility] [address], [place] [address] | | MEDICA L | | | [...] + | BETH LIZ | [address] | [place] [address] | | | [facility] | | | | | [...] PROVIDEN CE | | | | by [facility] [address], | | SACRED | | | | [place] [address] | | HEART | | | |Performed by [facility] [address], [place] [address] | | MEDICAL | | | | [...] SACRED | [address] | [place] [address] | | | [facility] | | | | | [...] | | LABORATORY | | | | [facility] [address] [place], | | [place] | | | | [place] [address] | | | | + + + + + + + + | Specimen | + + | Blood specimen | | (specimen) | + + + + + + + | Performing | Address | City/State/Zipcode | Phone Number | | Organization | | | | + + + + + | JIMJOSE ADora LIZ | [address] | [place] [address] | | | [facility] | | | | | [...] | | | POC | Performed by [facility] [address] | | SACRED | | | | [address] [place] | | HEART | | | | [address] | | MEDICAL | | | | [...] + + | BETH LIZ | [address] | [place] [address] | | | [facility] | | | | | [...] | | | POC | Performed by [facility] [address] | | SACRED | | | | [address] [place], [place] | | HEART | | | | [address] | | MEDICAL | | | | [...] | JIMJOSE ADora AGUSTO | [address] | [place] [address] | | | [facility] | | | | | [...] | PROVIDENCE | | | POC | [facility] [address], | | SACRED | | | | [place] [address] | | HEART | | | |Performed by [facility] [address], [place] [address] | | MEDICAL | | | | [...] [address] | [place] [address] | | | [facility] | | | | [...] | 14 (L)Comment: eGFR<60 | >=90 | PROVIDEDEE | | | GFR | consistent with impaired | mL/min/1.73m2 | SACRED | | | | kidney function.For | | HEART | | | | Americans, | | MEDICAL | | | | multiply the calculated | | CENTER | | | | GFR by 1.210Performed by | | LABORATORY | | | | [facility] [address], | | CERNER | | | | [place] [address] | | | | + + + + + + + + | Specimen | + + | Blood specimen | | (specimen) | + + + + + + + | Performing | Address | City/State/Zipcode | Phone Number | | Organization | | | | + + + + + | BETH LIZ | [address] | [place] [address] | | | [facility] | | | | | [...] PROVIDE NCE | | | | by [facility] [address], | | SACRED | | | | [place] [address] | | HEART | | | |Performed by [facility] [address], [place] [address] | | MEDICAL | | | | [...] + | BETH LIZ | [address] | [place] [address] | | | [facility] | | | | | [...] | | | POC | Performed by [facility] [address] | | SACRED | | | | [address], [place] | | HEART | | | | [address] | | MEDICAL | | | | [...] [address] | [place] [address] | | | HEART MEDICAL CENTER | [...] | | | POC | Performed by [facility] [address] | | SACRED | | | | [address] [place] | | HEART | | | | [address] | | MEDICAL | | | | [...] + | BETH LIZ | [address] | [place] [address] | | | [facility] | | | | | [...] | PROVIDENCE | | | POC | [facility] [address], | | SACRED | | | | [place] [address] | | HEART | | | |Performed by [facility] [address], [place] [address] | | MEDICAL | | | | [...] Ave. | [place] | | | [facility] | | | | | [...] | RIMAE | | | POC | [facility] [address], | | SACRED | | | | [place] | | HEART | | | |Performed by [facility] [address], [place] [address] | | MEDICAL | | | | [...] + | BETH LIZ | [address] | [place] [address] | | | [facility] | | | | [...] by | | | | | | [facility] [address], | | | | | | [place] [address] | | | | + + + + + + + + | Specimen | + + | Blood specimen | | (specimen) | + + + + + + + | Performing | Address | City/State/Zipcode | Phone Number | | Organization | | | | + + + + + | JIMRENUKA LIZ | [address] | [place] [address] | | | [facility] | | | | | [...] | | | POC | Performed by [facility] [address] | | SACRED | | | | [address] [place] | | HEART | | | | [address] | | MEDICAL | | | | [...] [address] | [place] [address] | | | [facility] | | | | [...] | | | POC | Performed by [facility] [address] | | SACRED | | | | [address], [place] | | HEART | | | | [address] | | MEDICAL | | | | [...] + | JIMJOSE ADora AGUSTO | [address] | [place] [address] | | | [facility] | | | | | [...] | | | POC | Performed by [facility] [address] | | SACRED | | | | [address] [place] | | HEART | | | | [address] | | MEDICAL | | | | [...] SACRED | [address] | [place] [address] | | | [facility] | | | | | [...] BETH | | | | Performed by [facility] [address] | | AGUSTO | | | | [address], [place] | | HEART | | | | [address] | | MEDICAL | | | | [...] | JIMJOSE ADora LIZ | [address] | [place] [address] | | | [facility] | | | | | [...] | | | POC | Performed by [facility] [address] | | SACRED | | | | [address] [place], [place] | | HEART | | | | [address] | | MEDICAL | | | | [...] + + | PROVIDENCE SACRED | [address] | [place] [address] | | | [facility] | | | | | [...] by | | | | | | [facility] [address], | | | | | | [place] [address] | | | | + + + + + + + + | Specimen | + + | Blood specimen | | (specimen) | + + + + + + + | Performing | Address | City/State/Zipcode | Phone Number | | Organization | | | | + + + + + | BETH LIZ | [address] | [place] [address] | | | [facility] | | | | | [...] | | LABORATORY | | | | [facility] [address] [place], | | [place] | | | | [place] [address] | | | | + + + + + + + + | Specimen | + + | Blood specimen | | (specimen) | + + + + + + + | Performing | Address | City/State/Zipcode | Phone Number | | Organization | | | | + + + + + | BETH LIZ | [address] | [place] [address] | | | HEART [facility] | | | | [...] PROVIDE NCE | | | | by [facility] [address], | | SACRED | | | | [place] [address] | | HEART | | | |Performed by [facility] [address], [place] [address] | | MEDICAL | | | | [...] LIZ | [address] | [place] [address] | | | HEART [facility] | | | | | LABORATORY [...] CE | | | B-12 | by [facility] [address], | | SACRED | | | | [place] [address] | | HEART | | | |Performed by [facility] [address], [place] [address] | | MEDICAL | | | | [...] + + | [facility]ED | [address] | [place] [address] | | | [facility] | | | | | [...] by | | | | | | [facility] [address], | | | | | | [place] [address] | | | | + + + + + + + + | Specimen | + + | Blood specimen | | (specimen) | + + + + + + + | Performing | Address | City/State/Zipcode | Phone Number | | Organization | | | | + + + + + | BETH LIZ | [address] | [place] [address] | | | [facility] | | | | | [...] | | | POC | Performed by [facility] [address] | | SACRED | | | | [address] [place] | | HEART | | | | [address] | | MEDICAL | | | | [...] [address] | [place] [address] | | | [facility] | | | | | [...] | | | POC | Performed by [facility] [address] | | SACRED | [...] | | | POC | Performed by [facility] [address] | | SACRED | | | | [place] | | HEART | | | | [address] | | MEDICAL | | | | [...] + | BETH LIZ | [address] | [place] [address] | | | [facility] | | | | | [...] PROVIDE NCE | | | | by [facility] [address], | | SACRED | | | | [place] [address] | | HEART | | | |Performed by [facility] [address], [place] [address] | | MEDICAL | | | | [...] + | BETH LIZ | [address] | [place] [address] | | | [facility] | | | | | [...] JIMN CE | | | | by [facility] [address], | | SACRED | | | | [place] [address] | | HEART | | | |Performed by [facility] [address], [place] [address] | | MEDICAL | | | | [...] + + | RIMAE AGUSTO | [address] | [place] [address] | | | [facility] | | | | | [...] | | LABORATORY | | | | [facility] [address], | | [place] | | | | [place] [address] | | | | + + + + + + + + | Specimen | + + | Blood specimen | | (specimen) | + + + + + + + | Performing | Address | City/State/Zipcode | Phone Number | | Organization | | | | + + + + + | JIMRENUKA LIZ | [address] | [place] [address] | | | [facility] | | | | | [...] | | | POC | Performed by [facility] [address] | | SACRED | | | | [address] [place] | | HEART | | | | [address] | | MEDICAL | | | | [...] + | JIMJOSE ADora AGUSTO | [address] | [place] [address] | | | [facility] | | | | | [...] | | | POC | Performed by [facility] [address] | | SACRED | | | | [address] [place] | | HEART | | | | [address] | | MEDICAL | | | | [...] SACRED | [address] | [place] [address] | | | [facility] | | | | | [...] | SACRED | | | Total | [address] | | HEART | | | | [address] [place], [place] | | MEDICAL | | | | [phone] Daniel | | CENTER | | | | Lauro HOLDEN [phone] | | LABORATORY | | | | [...] + | BETH LIZ | [address] | [place] [address] | | | [facility] | | | | | [...] | SACRED | | | | by [facility] [address], | | HEART | | | | [place] [address] | | MEDICAL | | | | [...] SACRED | [address] | [place] [address] | | | [facility] | | | | | [...] | SACRED | | | | by [facility] [address], | | HEART | | | | [place] [address] | | MEDICAL | | | | [...] + | BETH LIZ | [address] | [place] [address] | | | [facility] | | | | | [...] | MEDICAL | | | | by [facility] [address], | | CENTER | | | | [place] [address] | | LABORATORY | | | |Performed by [facility] [address], [place] [address] | | CERNER | | | | [...] + | [facility] | [address] | [place] [address] | | | [facility] | | | | | [...] | | | POC | Performed by [facility] [address] | | SACREVNAS | | | | [place] | | HEART | | | | [address] | | MEDICAL | | | | [...] + | BETH LIZ | [address] | [place] [address] | | | [facility] | | | | | [...] | | | POC | Performed by [facility] [address] | | SACRED | | | | [address] [place] | | HEART | | | | [address] | | MEDICAL | | | | [...] SACRED | [address] | [place] [address] | | | HEART MEDICAL CENTER | [...] CENTER | | | | 3.5Performed by [facility] [address] | | LABORATORY | | | | [address]. [place] | | [place] | | | | [address] | | | | + + + + + + + + | Specimen | + + | Blood specimen | | (specimen) | + + + + + + + | Performing | Address | City/State/Zipcode | Phone Number | | Organization | | | | + + + + + | BETH LIZ | [address] | [place] [address] | | | [facility] | | | | [...] | 5.46 | 3.80 - 11.00 | BEHT | | | | | K/uL | [...] | HEART | | | s | [address] | | MEDICAL | | | | [...] + | BETH LIZ | [address] [place] [address]. | [place] [address] | | | [facility] | | | | | [...] | | LABORATORY | | | | [facility] [address], | | [place] | | | | [place] [address] | | | | + + + + + + + + | Specimen | + + | Blood specimen | | (specimen) | + + + + + + + | Performing | Address | City/State/Zipcode | Phone Number | | Organization | | | | + + + + + | RIMAE SACRED | [address] | [place] [address] | | | [facility] | | | | | [...] | | | | First dose on [facility] 03/30/19 at 1130 | | AM PDT [...] scheduled: AC, NPO, Daytime | | | [id number] Use NIGHT DOSE for | | | doses scheduled: HS, 3AM, | | | Nighttime [id number] If the BG is | | | [...]
--- OUTSIDE RECORDS SUMMARY | ~2019-08-24 | XMS | Encounter Summary ---
Demographics + + + | Address | [address] | | | [place] [address] | + + + | Home Phone [...] | [facility] | | | and [place] | + + + | Organization | [facility] | | | and [place] | + + + | Address | Unknown | + + + | Phone | Unavailable | + + + Support + + + + + | Name | Relationship | Address | Phone | + + + + + | India Tilley | ECON | [address] | | | | | [place], [place] | | | | | [address] | | + + + + + | Yina La | ECON | Unknown | | + + + + + | Yina Peterson | ECON | Unknown | | + + + + + | Leatha Casillas | ECON | Unknown | | + + + + + Care Team Providers + +------+ + | Care Sampler Pickup Name | Role | Phone | + [...] | renal | PA-C 2229 | [address] | | | | | disease | NW | [place], [place] | | | | | ([facility]) | [place] | 100 [facility] | | | | | Procedures | [address] [address] | [facility] [place] | | | | | [place] ESRD | [facility] | [address] Phone: | | | | | RELATED [place] | [place] | [phone] | | | | | MONTHLY | [address] | Fax: | | | | | 20&/> YR OLD | Phone: | [phone] | | | | | 4/> VISITS | [phone] | | | | | | | Fax: | | | | | | | [phone] | | + +--------+ + + + + Encounter Details +--------+ + + + + | Date | Type | Department | Care Team | Description | +--------+ + + + + | 03/06/ | Off-Site | [facility] | Gopi Muñoz | End stage renal | | 2019 | Visit | NEPHROLOGY [address] | M, DO [address] | disease (HCC) | | | | [address] | [place], [place] [address] | (Primary Dx) | | | | [place] | [place] | | | | | [address] | [address] | | | | | [phone] | | | +--------+ + + + [...]
--- OUTSIDE RECORDS SUMMARY | ~2019-08-24 | XMS | Encounter Summary ---
Demographics + + + | Address | [address] | | | [place] [address] | + + + | Home Phone [...] Author | [facility] | | | and [place] | + + + | Organization | [facility] | | | and [place] | + + + | Address | Unknown | + + + | Phone | Unavailable | + + + Support + + + + + | Name | Relationship | Address | Phone | + + + + + | India Tilley | ECON | [address] | | | | | [place], [place] | | | | | [address] | | + + + + + | Yina La | ECON | Unknown | | + + + + + | Yina Peterson | ECON | Unknown | | + + + + + | Leatha Casillas | ECON | Unknown | | + + + + + Care Team Providers + +------+ + | Care Rn Transplant Name | Role | Phone | + +------+ + PCP | Unavailable | + +------+ + Reason for Visit +---------+ + | Reason | Comments | +---------+ + | Barrel Assembly Inspector | | +---------+ + Encounter Details +--------+ + + + + | Date | Type | Department | Care Team | Description | +--------+ + + + + | 12/12/ | Telephone | [facility] | Scott Koroma, | Barrel Assembly Inspector | | 2018 | | ORTHOPEDIC SURGERY | [address] [facility] | | | | | [address] [facility] | [place] | | | | | [place] | [address] | | | | | [address] | | | | | | [phone] | | | +--------+ + + + [...]
--- OUTSIDE RECORDS SUMMARY | ~2019-08-24 | XMS | Encounter Summary ---
Demographics + + + | Address | [address] | | | [place] [address] | + + + | Home Phone [...] + | Author | [facility] | | | and [place] | + + + | Organization | [facility] | | | and [place] | + + + | Address | Unknown | + + + | Phone | Unavailable | + + + Support + + + + + | Name | Relationship | Address | Phone | + + + + + | India Tilley | ECON | [address] | | | | | [place], [place] | | | | | [address] | | + + + + + | Yina La | ECON | Unknown | | + + + + + | Yina Peterson | ECON | Unknown | | + + + + + | Leatha Casillas | ECON | Unknown | | + + + + + Care Team Providers + +------+ + | Care Estimator Name | Role | Phone | + +------+ + | Renato Pierson DISSOLVER OPERATOR | PCP | | + +------+ [...] | | | disease | NW | [place], [place] | | | | | (HCC) | [place] | 100 [facility] | | | | | Procedures | [address] [address] | [place], [place] | | | | | [place] ESRD | [place], | [address] Phone: | | | | | RELATED SVC | [place] | [phone] | | | | | MONTHLY | [address] | Fax: | | | | | 20&/> YR OLD | Phone: | [phone] | | | | | 4/> VISITS | [phone] | | | | | | | Fax: | | | | | | | [phone] | | + +--------+ + + + + Encounter Details +--------+ + + + + | Date | Type | Department | Care Team | Description | +--------+ + + + + | 07/10/ | Off-Site | [facility] | Gopi Muñoz | ESRD (end stage | | 2019 | Visit | NEPHROLOGY [address] | M, DO [address] | renal disease) on | | | | [address] | [place], [place] [address] | dialysis (HCC) | | | | [place] | [place] | (Primary Dx) | | | | [address] | [address] | | | | | [phone] | | | +--------+ + + + [...]
--- OUTSIDE RECORDS SUMMARY | ~2019-08-24 | XMS | Encounter Summary ---
Demographics + + + | Address | [address] | | | [place] [address] | + + + | Home Phone [...] + | Author | [facility] | | | and [place] | + + + | Organization | [facility] | | | and [place] | + + + | Address | Unknown | + + + | Phone | Unavailable | + + + Support + + + + + | Name | Relationship | Address | Phone | + + + + + | India Tilley | ECON | [address] | | | | | [place], [place] | | | | | [address] | | + + + + + | Yina La | ECON | Unknown | | + + + + + | Yina Peterson | ECON | Unknown | | + + + + + | Leatha Casillas | ECON | Unknown | | + + + + + Care Team Providers + +------+ + | Care Nib Assembler Name | Role | Phone | [...] + + | 06/01/ | Telephone | [facility] | Gopi Muñoz | Other | | 2019 | | NEPHROLOGY [address] | M, DO [address] | | | | | [address] [facility] | [place], [facility] 100 | | | | | [place], [place] | [place] | | | | | [address] | [address] | | | | | [phone] | | | +--------+ + + + [...]
--- OUTSIDE RECORDS SUMMARY | ~2019-08-24 | XMS | Encounter Summary ---
Demographics + + + | Address | [address] | | | [place] [address] | + + + | Home Phone [...] Author | [facility] | | | and [place] | + + + | Organization | [facility] | | | and [place] | + + + | Address | Unknown | + + + | Phone | Unavailable | + + + Support + + + + + | Name | Relationship | Address | Phone | + + + + + | India Tilley | ECON | [address] | | | | | [place], [place] | | | | | [address] | | + + + + + | Yina La | ECON | Unknown | | + + + + + | Yina Peterson | ECON | Unknown | | + + + + + | Leatha Casillas | ECON | Unknown | | + + + + + Care Team Providers + +------+ + | Care Cycle Manager Name | Role | Phone | + +------+ + PCP | Unavailable | + +------+ + Encounter Details +--------+ + + + + | Date | Type | Department | Care Team | Description | +--------+ + + + + | 11/08/ | Imaging | [facility] | Provider, | | | 2018 | Exam | MED CTR EXTERNAL | [address] | | | | | IMAGING | [address] | | | | | [phone] | [place] [address] | | +--------+ + + + + [...] for comparison only - no result from [place]. | [facility] | + + + + +---------+ + + | Performing | Address | City/State/Zipcode | Phone Number | | Organization | | | | + +---------+ + + | [facility] | | | | + +---------+ + + documented in this encounter Visit Diagnoses Not on filedocumented in this encounter"
--- OUTSIDE RECORDS SUMMARY | ~2019-08-24 | XMS | Encounter Summary ---
Demographics + + + | Address | [address] | | | [place] [address] | + + + | Home Phone [...] | Author | [facility] | | | and [place] | + + + | Organization | [facility] | | | and [place] | + + + | Address | Unknown | + + + | Phone | Unavailable | + + + Support + + + + + | Name | Relationship | Address | Phone | + + + + + | India Tilley | ECON | [address] | | | | | [place], [place] | | | | | [address] | | + + + + + [...] | [address] | [address], [place] | | | | | [place] | [address] [place] | | | | | [address] | [address] | | | | | [phone] | | | +--------+ + + + [...] PDTOutside record: Renal ultrasound, dos: 03/29/17. From [facility]. Sent to scan.Electronically signed by Tatiana Rendon at 03/29 4:46 PM PDTdocumented in this encounter Plan of Treatment Not on filedocumented as of this encounter Visit Diagnoses Not on filedocumented in this encounter"
--- OUTSIDE RECORDS SUMMARY | ~2019-08-24 | XMS | Encounter Summary ---
Demographics + + + | Address | [address] | | | [place] [address] | + + + | Home Phone [...] + | Author | [facility] | | | and [place] | + + + | Organization | [facility] | | | and [place] | + + + | Address | Unknown | + + + | Phone | Unavailable | + + + Support + + + + + | Name | Relationship | Address | Phone | + + + + + | India Tilley | ECON | [address] | | | | | [place], [place] | | | | | [address] | | + + + + + | Yina La | ECON | Unknown | | + + + + + | Yina Peterson | ECON | Unknown | | + + + + + | Leatha Casillas | ECON | Unknown | | + + + + + Care Team Providers + +------+ + | Care Museum Librarian Name | Role | Phone | + +------+ + PCP | Unavailable | + +------+ + Encounter Details +--------+ + + + + | Date | Type | Department | Care Team | Description | +--------+ + + + + | 10/04/ | Abstract | [facility] | Darlin Moseley W, | | | 2017 | | NEPHROLOGY [address] | [address] | | | | | [address] | [place] [address] [facility] | | | | | [place] | [place] [address] | | | | | [address] | [phone] | | | | | [phone] | | | +--------+ + + + [...]
--- OUTSIDE RECORDS SUMMARY | ~2019-08-24 | XMS | Encounter Summary ---
Demographics + + + | Address | [address] | | | [place] [address] | + + + | Home Phone [...] | [facility] | | | and [place] | + + + | Organization | [facility] | | | and [place] | + + + | Address | Unknown | + + + | Phone | Unavailable | + + + Support + + + + + | Name | Relationship | Address | Phone | + + + + + | India Tilley | ECON | [address] | | | | | [place], [place] | | | | | [address] | | + + + + + | Yina La | ECON | Unknown | | + + + + + | Yina Peterson | ECON | Unknown | | + + + + + | Leatha Casillas | ECON | Unknown | | + + + + + Care Team Providers + +------+ + | Care Expansion Joint Builder Name | Role | Phone | + [...] Surgery | kidney | DO [address] [place] | [address] | | | | | disease, | [place], [place] | [address] | | | | | stage V | [address] [place] | [place], | | | | | ([facility]) | [place] | [place] [address] | | | | | | [address] | Phone: | | | | | | Phone: | [phone] | | | | | | [phone] | Fax: | | | | | | Fax: | [phone] | | | | | | [phone] | | +--------+ + + + + + Encounter Details +--------+---------+ + + + | Date | Type | Department | Care Team | Description | +--------+---------+ + + + | 04/04/ | Office | [facility] | Santos Stephenson | Chronic kidney | | 2018 | Visit | SURGERY [address] | MD Kinga, FACS [address] | disease, stage V | | | | [place], [place] | [address] [facility] | (HCC) (Primary Dx) | | | | [address] | [place] [address] | | | | | [phone] | [phone] | | | | | | | [...] Placement; Surgeon: Nora Leo MD; Location : [facility] MAIN OR SHUNT PLACEMENT/INSERTION Right 02/04/2018 Procedure: INSERTION SHUNT HEMODIALYSIS W/ PERMACATH; Surgeon: Heather Navarro MD; L ocation: [facility] MAIN OR VEIN SURGERY Right 01/04/2018 Procedure: Right Transposed Basilic Vein to Proximal Radial Artery; Surgeon: Santos Stephenson MD, FACS; Location: [facility] MAIN OR Allergies Allergen Reactions [...] can shower tomorrow. Patient to follow with rig builder and primary care. I will be available [...]
--- OUTSIDE RECORDS SUMMARY | ~2019-08-24 | XMS | Encounter Summary ---
Demographics + + + | Address | [address] | | | [place] [address] | + + + | Home Phone [...] Author | [facility] | | | and [place] | + + + | Organization | [facility] | | | and [place] | + + + | Address | Unknown | + + + | Phone | Unavailable | + + + Support + + + + + | Name | Relationship | Address | Phone | + + + + + | India Tilley | ECON | [address] | | | | | [place], [place] | | | | | [address] | | + + + + + | Yina La | ECON | Unknown | | + + + + + | Yina Peterson | ECON | Unknown | | + + + + + | Leatha Casillas | ECON | Unknown | | + + + + + Care Team Providers + +------+ + | Care Thermocouple Tester Name | Role | Phone | [...] NEPHROLOGY [address] | M, DO [address] | Problem | | | | [address] | [place], [place] [address] | | | | | [place] | [place] | | | | | [address] | [address] | | | | | [phone] | | | +--------+ + + + [...]
--- OUTSIDE RECORDS SUMMARY | ~2019-08-24 | XMS | Encounter Summary ---
Demographics + + + | Address | [address] | | | [place] [address] | + + + | Home Phone [...] | Author | [facility] | | | and [place] | + + + | Organization | [facility] | | | and [place] | + + + | Address | Unknown | + + + | Phone | Unavailable | + + + Support + + + + + | Name | Relationship | Address | Phone | + + + + + | India Tilley | ECON | [address] | | | | | [place], [place] | | | | | [address] | | + + + + + | Yina La | ECON | Unknown | | + + + + + | Yina Peterson | ECON | Unknown | | + + + + + | Leatha Casillas | ECON | Unknown | | + + + + + Care Team Providers + +------+ + | Care Film Archivist Name | Role | Phone | + +------+ + PCP | Unavailable | + +------+ + Encounter Details +--------+ + + + + | Date | Type | Department | Care Team | Description | +--------+ + + + + | 11/08/ | Imaging | [facility] | Provider, | | | 2018 | Exam | MED CTR EXTERNAL | [address] | | | | | IMAGING | [address] | | | | | [phone] | [place] [address] | | +--------+ + + + + [...] for comparison only - no result from [place]. | [facility] | + + + + +---------+ + + | Performing | Address | City/State/Zipcode | Phone Number | | Organization | | | | + +---------+ + + | [facility] | | | | + +---------+ + + documented in this encounter Visit Diagnoses Not on filedocumented in this encounter"
--- OUTSIDE RECORDS SUMMARY | ~2019-08-24 | XMS | Encounter Summary ---
Demographics + + + | Address | [address] | | | [place] [address] | + + + | Home Phone [...] | Author | [facility] | | | and [place] | + + + | Organization | [facility] | | | and [place] | + + + | Address | Unknown | + + + | Phone | Unavailable | + + + Support + + + + + | Name | Relationship | Address | Phone | + + + + + | India Tilley | ECON | [address] | | | | | [place], [place] | | | | | [address] | | + + + + + | Yina La | ECON | Unknown | | + + + + + | Yina Peterson | ECON | Unknown | | + + + + + | Leatha Casillas | ECON | Unknown | | + + + + + Care Team Providers + +------+ + | Care Scrub Wheel Operator Name | Role | Phone | [...] + + | 10/06/ | Telephone | [facility] | Gopi Muñoz | Nephrology | | 2018 | | NEPHROLOGY [address] | M, DO [address] | Appointment | | | | [address] | [place], [place] [address] | | | | | [place], [place] | [place] | | | | | [address] | [address] | | | | | [phone] | | | +--------+ + + + [...]
--- OUTSIDE RECORDS SUMMARY | ~2019-08-24 | XMS | Encounter Summary ---
Demographics + + + | Address | [address] | | | [place] [address] | + + + | Home Phone [...] | [facility] | | | and [place] | + + + | Organization | [facility] | | | and [place] | + + + | Address | Unknown | + + + | Phone | Unavailable | + + + Support + + + + + | Name | Relationship | Address | Phone | + + + + + | India Tilley | ECON | [address] | | | | | [place], [place] | | | | | [address] | | + + + + + | Yina La | ECON | Unknown | | + + + + + | Yina Peterson | ECON | Unknown | | + + + + + | Leatha Casillas | ECON | Unknown | | + + + + + Care Team Providers + +------+ + | Care Survey Coordinator Name | Role | Phone | + +------+ + PCP | Unavailable | + +------+ + Encounter Details +--------+ + + + + | Date | Type | Department | Care Team | Description | +--------+ + + + + | 12/19/ | Hospital | [facility] | Patricia, | | | 2007 - | Encounter | MED CTR CANCER | Venkatesh Forte MD [address] | | | | | [place] [address] | [facility] | | | 01/10/ | | [place] | [place] [address] | | | 2007 | | [address] | [phone] | | | | | [phone] | | | +--------+ + + + [...]
--- OUTSIDE RECORDS SUMMARY | ~2019-08-24 | XMS | Encounter Summary ---
Demographics + + + | Address | [address] | | | [place] [address] | + + + | Home Phone [...] + | Author | [facility] | | | and [place] | + + + | Organization | [facility] | | | and [place] | + + + | Address | Unknown | + + + | Phone | Unavailable | + + + Support + + + + + | Name | Relationship | Address | Phone | + + + + + | India Tilley | ECON | [address] | | | | | [place], [place] | | | | | [address] | | + + + + + | Yina La | ECON | Unknown | | + + + + + | Yina Peterson | ECON | Unknown | | + + + + + | Leatha Casillas | ECON | Unknown | | + + + + + Care Team Providers + +------+ + | Care Manager Furniture Name | Role | Phone | + [...] | renal | PA-C [address] | [address] | | | | | disease | NW | [place], [place] | | | | | ([facility]) | [place] | [address] [facility] | | | | | Procedures | [address] | [facility] [place] | | | | | [place] ESRD | [facility] | [address] Phone: | | | | | RELATED [place] | [place] | [phone] | | | | | MONTHLY | [address] | Fax: | | | | | 20&/> YR OLD | Phone: | [phone] | | | | | 4/> VISITS | [phone] | | | | | | | Fax: | | | | | | | [phone] | | + +--------+ + + + + Encounter Details +--------+ + + + + | Date | Type | Department | Care Team | Description | +--------+ + + + + | 03/06/ | Off-Site | [facility] | Gopi Muñoz | End stage renal | | 2019 | Visit | NEPHROLOGY [address] | M, DO [address] | disease (HCC) | | | | [address] | [place], [place] [address] | (Primary Dx) | | | | [place] | [place] | | | | | [address] | [address] | | | | | [phone] | | | +--------+ + + + [...]
--- OUTSIDE RECORDS SUMMARY | ~2019-08-24 | XMS | Encounter Summary ---
Demographics + + + | Address | [address] | | | [place] [address] | + + + | Home Phone [...] Author | [facility] | | | and Kamaljitana | + + + | Organization | [facility] | | | and [place] | + + + | Address | Unknown | + + + | Phone | Unavailable | + + + Support + + + + + | Name | Relationship | Address | Phone | + + + + + | India Campos | ECON | [address] | | | | | [place], [place] | | | | | [address] | | + + + + + | Yina La | ECON | Unknown | | + + + + + | Yina Peterson | ECON | Unknown | | + + + + + | Leatha Casillas | ECON | Unknown | | + + + + + Care Team Providers + +------+ + | Care Preparation Center Coordinator Name | Role | Phone | [...] | | | | | [address] | [address] | | | | | [place], [place] | [place] [address] | | | | | [address] | [phone] | | | | | [phone] | | | +--------+---------+ + + + [...] Christina MD - 05/25/2019 11:24 AM PDT [place] HOSPITALIST DISCHARGE SUMMARY Pt. 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 S/p thoracentesis wit h 1300cc fluid removed, studies c/w transudative effusion. Cytology negative for malignant c ells. No growth on culture thus far. Patient is on room air. Of note, recent echo in March sh owed normal EF. 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 SBP 200s on a rrival here. Blood pressure improved after HD, resumption of home medications. Amlodipine an d losartan also added, Nephrology will CTM as outpatient. #Acute metabolic encephalopathy Possibly 2/2 medication as patient received 1mg Ativan at OSH ROUTE DELIVERY MANAGER. At baseline currently. #Recent osteomyelitis Patient [...] information: [address] [place] [address] Condition: stable Diet: renal, cc Greater than 30 minutes were spent on discharge and coordination of post-hospital care. Electronically signed by: Nora Christina MD, 05/25/2019 11:24 [facility] documented in this enco unter Discharge Instructions [...] will likely include a biopsy in the [facility] down the line. Nora Christina MD [...] Arthritis, Back pain, Breast cancer ([facility]), Cancer ([facility]), Diabetes ([facility]), Heart disease, Hemodialysis patient ([facility]), History of blood clots, Hypercholesteremia, Hypertensio n, Hypothyroidism, Renal failure, Seasonal allergies, and Stroke (cerebrum) ([facility]). . Risk fa ctors for MDR [...] Culture, Body Fluid, Sterile, Smear, with Anaerobes [[id number]] Collected: 05/22/19 1509 Order Status: Sent Lab Status: In process Updated: 05/22/19 151 Specimen: Body Fluid from Pleural Fluid, Left Narrative: The following orders were created for panel order Culture, Body Fluid, Sterile, Smear, wit h Anaerobes. Procedure Abnormality Status --------- ------ Culture, Body Fluid, Aerobe[[id number]] Preliminary result Culture, Body Fluid, Bre...[[id number]] In process Please view results for these tests on the individual orders. Culture, Fungus, Smear [[id number]] Collected: 05/22/19 150 Order Status: Sent Lab Status: In process Updated: 05/22/19 151 Specimen: Body Fluid from Pleural Fluid, Left Culture, Body Fluid, Aerobe [[id number]] Collected: 05/22/19 150 Order Status: Completed Lab Status: Preliminary result Updated: 05/24/19 1038 Specimen: Body Fluid from Pleural Fluid, Left Culture No growth to date Gram Stain Result 4+ White Blood Cells No organisms seen Culture, Body Fluid, Anaerobe [[id number]] Collected: 05/22/19 150 Order Status: Resulted Lab Status: In process Updated: 05/22/19 151 Specimen: Body Fluid from Pleural Fluid, Left Culture, MRSA [[id number]] Collected: 05/20/192021 Order Status: Completed Lab Status: Final result Updated: 05/22/19 0753 Specimen: Tissue from Nares Culture Negative for MRSA by chromogenic agar method. 2+ Coagulase positive Staphylococcus Culture, Blood, 2nd Specimen [[id number]] Collected: 05/18/19 1548 Order Status: Completed Lab Status: Final result Updated: 1945 RESULT NO GROWTH 6 DAYS RESULT Testing performed at [facility];[address] [place] [address];[place] [address] Comment: Testing performed at [facility], [address] [place] [address], [place] [address] Culture, Blood [[id number]] Collected: 05/18/19 150 Order Status: Completed Lab Status: Final result Updated: 1945 Specimen: Blood from Antecubital, Right RESULT NO GROWTH 6 DAYS RESULT Testing performed at [facility];[address] [place] [address];[place] [address] Comment: Testing performed at [facility], [address] [facility], [place] [address] Culture, Blood [[id number]] Collected: 05/18/19 1447 Order Status: Canceled Lab [...] and htn Prior to admission dialysis schedule: [facility] Vancomycin Dosing in HD patients: Loading [...] ESR, Cxs, 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 Nick Miller MD . He recommends [...] Bx's here. Therefore, shai kearney confer with [facility] IR, outpt. She was agreeable to staying one more nite for HD and clarif y AB regimen. Vanc. /Cefepime were given, IV, during discussion, after reviewing MRI report but before the phone conversation with Dr. Jung. BP control is better. Her Mental status is very clear. Also had HD x 5 hrs, 2K+, 35 HCO3 a nd tolerated well. [facility] Joo Rodriguez, Deck Supervisor - 05/24/2019 3:46 PM PDT VANCOMYCIN PER PHARMACY PROTOCOL: AMS/Drug Name - Vancomycin Patient: Ara Campos [id number] Admit: 05/20/2019 20:16 RELEVANT ALLERGIES: Amoxicillin 74 yrs old female patient admitted on 05/20/2019 for shortness of breath. Patient is receiv ing vancomycin starting on 05/24/2019 for osteomyelitis. Patient has a past medical histor y of Anemia, Arthritis, Back pain, Breast cancer ([facility]), Cancer ([facility]), Diabetes ([facility]), Heart disease, Hemodialysis patient ([facility]), History of blood clots, Hypercholesteremia, Hypertensio n, Hypothyroidism, Renal failure, Seasonal allergies, and Stroke (cerebrum) ([facility]). . Risk fa ctors for MDR [...] Culture, Body Fluid, Sterile, Smear, with Anaerobes [[id number]] Collected: 05/22/19 1501 Order Status: Sent Lab Status: In process Updated: 05/22/19 1514 Specimen: Body Fluid from Pleural Fluid, Left Narrative: The following orders were created for panel order Culture, Body Fluid, Sterile, Smear, wit h Anaerobes. Procedure Abnormality Status --------- ------ Culture, Body Fluid, Aerobe[[id number]] Preliminary result Culture, Body Fluid, Bre...[[id number]] In process Please view results for these tests on the individual orders. Culture, Fungus, Smear [[id number]] Collected: 05/22/19 1509 Order Status: Sent Lab Status: In process Updated: 05/22/19 1510 Specimen: Body Fluid from Pleural Fluid, Left Culture, Body Fluid, Aerobe [[id number]] Collected: 05/22/19 1509 Order Status: Completed Lab Status: Preliminary result Updated: 05/24/19 1038 Specimen: Body Fluid from Pleural Fluid, Left Culture No growth to date Gram Stain Result 4+ White Blood Cells No organisms seen Culture, Body Fluid, Anaerobe [[id number]] Collected: 05/22/19 1509 Order Status: Resulted Lab Status: In process Updated: 05/22/19 151 Specimen: Body Fluid from Pleural Fluid, Left Culture, MRSA [[id number]] Collected: 05/20/192021 Order Status: Completed Lab Status: Final result Updated: 05/22/19 0753 Specimen: Tissue from Nares Culture Negative for MRSA by chromogenic agar method. 2+ Coagulase positive Staphylococcus Culture, Blood, 2nd Specimen [[id number]] Collected: 05/18/19 1548 Order Status: Completed Lab Status: Final result Updated: 05/24/19 0546 RESULT NO GROWTH 6 DAYS RESULT Testing performed at [facility];[address] [place] [address] Comment: Testing performed at [facility], [address] [place] [address] Culture, Blood [[id number]] Collected: 05/18/19 1508 Order Status: Completed Lab Status: Final result Updated: 05/24/19 0546 Specimen: Blood from Antecubital, Right RESULT NO GROWTH 6 DAYS RESULT Testing performed at [facility];[address] [place] [address] Comment: Testing performed at [facility], [address] [place] [address] Culture, Blood [[id number]] Collected: 05/18/19 1447 Order Status: Canceled Lab [...] BP elevated Prior to admission dialysis schedule: [facility] Vancomycin Dosing in HD patients: Loading [...] Monitoring Protocol Electronically signed by: Joo Bo, Deck Supervisor 05/24/2019 15:46Electroni terri signed by Joo Bo, Deck Supervisor at 05/24/2019 4:49 PM Kwame Guerin MD - 05/24/2019 11:04 AM PDTFormatting of this note might be different from the origin al[facility] [place] H[facility] PROGRESS NOTE Patient: Ara Campos : 1945: Age: 74 y.o. 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 At baseline currently. #Recent osteomyelitis Patient admitted 03/24- with T11-12 osteomyelitis and completed 6 weeks vanc/cefepime. Rep eat MRI again redemonstrated possible osteomyelitis - vanc and cefepime have been resumed, Deepa Muñoz is discussing case with ID. #Diabetes Blood sugars at goal. CCM. Patient is again very upset about the food provided at the [facility] and is eating little to no [...] Culture, Body Fluid, Sterile, Smear, with Anaerobes [[id number]] Collected: 05/22/19 150 Order Status: Sent Lab Status: In process Updated: 05/22/19 151 Specimen: Body Fluid from Pleural Fluid, Left Narrative: The following orders were created for panel order Culture, Body Fluid, Sterile, Smear, wit h Anaerobes. Procedure Abnormality Status --------- ------ Culture, Body Fluid, Aerobe[[id number]] Preliminary result Culture, Body Fluid, Bre...[[id number]] In process Please view results for these tests on the individual orders. Culture, Fungus, Smear [[id number]] Collected: 05/22/191508 Order Status: Sent Lab Status: In process Updated: 05/22/19 151 Specimen: Body Fluid from Pleural Fluid, Left Culture, Body Fluid, Aerobe [[id number]] Collected: 05/22/19 150 Order Status: Completed Lab Status: Preliminary result Updated: 05/24/19 1038 Specimen: Body Fluid from Pleural Fluid, Left Culture No growth to date Gram Stain Result 4+ White Blood Cells No organisms seen Culture, Body Fluid, Anaerobe [[id number]] Collected: 05/22/191508 Order Status: Resulted Lab Status: [...] rate 6L/min Nora Christina MD 05/24/2019 11:04 [facility] Michelle Solorzano Phar mD - 05/23/2019 [...] ? Pharmacy list names: [facility] ? [employer] insurance reported information Vaccines up [...] Tobacco & Alcohol use/frequency: ? 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 She either di d not want to take her medications, or she stated that she did not know if she was taking th em. She did not want to do the interview. Best possible ROUTE DELIVERY MANAGER medication list after pharmacy review: Medication review performed and electronically signed by Kerry Jordan, Fleet Manager/Dispatch 05/23/2019 16:20 Reviewed by Michelle Ochoa PharmD 05/23/2019 18:26 Nora Guerin MD - 05/23/2019 3:[address] [facility] [place] HOSPITALIST PROGRESS NOTE Patient: Ara Campos : 1945: Age: 74 y.o. MedRec: [id number] Admission date: 05/20/2019 Hospital day # : [...] as patient received 1mg Ativan at [facility] ROUTE DELIVERY MANAGER. At baseline currently. #Recent osteomyelitis Patient [...] Culture, Body Fluid, Sterile, Smear, with Anaerobes [[id number]] Collected: 05/22/19 1507 Order Status: Sent Lab Status: In process Updated: 05/22/191512 Specimen: Body Fluid from Pleural Fluid, Left Narrative: The following orders were created for panel order Culture, Body Fluid, Sterile, Smear, wit h Anaerobes. Procedure Abnormality Status --------- ------ Culture, Body Fluid, Aerobe[[id number]] Preliminary result Culture, Body Fluid, Bre...[[id number]] In process Please view results for these tests on the individual orders. Culture, Fungus, Smear [[id number]] Collected: 05/22/19 1509 Order Status: Sent Lab Status: In process Updated: 05/22/19 1510 Specimen: Body Fluid from Pleural Fluid, Left Culture, Body Fluid, Aerobe [[id number]] Collected: 05/22/19 150 Order Status: Completed Lab Status: Preliminary result Updated: 05/23/19 09 Specimen: Body Fluid from Pleural Fluid, Left Culture No growth to date Gram Stain Result 4+ White Blood Cells No organisms seen Culture, Body Fluid, Anaerobe [[id number]] Collected: 05/22/19 150 Order Status: Resulted Lab Status: In process Updated: 05/22/19 151 Specimen: Body Fluid from Pleural Fluid, Left Culture, MRSA [[id number]] Collected: 05/20/192021 Order Status: Completed Lab Status: [...] rate 0.5L/min Nora Christina MD 05/23/2019 15:20 [facility] documented in this enco unter Plan [...] [address] | [place] | [phone] | | [facility] | | [address] | | | - LABORATORY | | [...] [address] | [place] | [phone] | | [facility] | | [address] | | | - LABORATORY | | [...] 4.14 (H) | 0.55 - 1.02 | [facility] | | | | | mg/dL | [facility] | | | | | | MEDICAL | | | | | | CENTER - | | | | | | LABORATORY | | + + + + + + | eGFR if not | 11 (L)Comment: | >=60 | [facility] | | | | GLOMERULAR FILTRATION | mL/min/1.73m2 | [facility] | | | [place] | RATE,ESTIMATED | | MEDICAL | | | | mL/min/1.41m5Ndpo than | | CENTER - | | [...] [address] | [place] | [phone] | | [facility] | | [address] | | | - LABORATORY | | [...] | [address] [facility] | [address] | [place] | [phone] | | [facility] | | [address] | | | - LABORATORY | | [...] [address] | [place] | [phone] | | [facility] | | [address] | | | - LABORATORY | | [...] + | [facility] | [address] | [place] | [phone] | | [facility] | | [address] | | | - LABORATORY | | [...] [address] | [place] | [phone] | | [facility] | | [address] | | | - LABORATORY | | [...] mL/min/1.73m2 | [facility] | | | [place] | RATE,ESTIMATED | | MEDICAL | | | | mL/min/1.26u4Xuyk than | | CENTER - | | [...] [address] | [place] | [phone] | | [facility] | | [address] | | | - LABORATORY | | [...] [address] | [place] | [phone] | | [facility] | | [address] | | | - LABORATORY | | [...] | [address] [facility] | [address] | [place] | [phone] | | [facility] | | [address] | | | - LABORATORY | | [...] | | POC | | | [facility] | | | | | | MEDICAL [...] ST. | [address] | [place], [place] | [phone] | | [facility] | | [address] | | | - LABORATORY | | [...] [address] | [place] | [phone] | | [facility] | | [address] | | | - LABORATORY | | [...] ST. | [address] | [place], [place] | [phone] | | [facility] | | [address] | | | - LABORATORY | | [...] mL/min/1.73m2 | [facility] | | | [place] | RATE,ESTIMATED | | MEDICAL | | | | mL/min/1.09e4Etnm than | | CENTER - | | [...] [address] | [place] | [phone] | | [facility] | | [address] | | | - LABORATORY | | [...] + | [facility] | [address] | [place] | [phone] | | [facility] | | [address] | | | - LABORATORY | | [...] [address] | [place] | [phone] | | [facility] | | [address] | | | [...] [address] | [place] | [phone] | | [facility] | | [address] | | | - LABORATORY | | [...] + | [address] [facility] | [address] | [place] | [phone] | | [facility] | | [address] | | | - LABORATORY | | [...] REFERENCE LAB | | JOSE A Avalos [phone] Public Relations Account Executive: Violette Mcconnell MD, Phone: | [facility] | | [phone] | | + + + + + + + + | Performing | Address | City/State/Zipcode | Phone Number | | Organization | | | | + + + + + | REFERENCE LAB | [address] | [place] [address] | [phone] | | [facility] | Drive [...] + | Performed at: 01 - [facility] [place] [address], | REFERENCE LAB | | [place], [place] [id number] Public Relations Account Executive: Ernie Lee MD, Phone: | [facility] | | [phone] | | + + + + + + + + | Performing | Address | City/State/Zipcode | Phone Number | | Organization | | | | + + + + + | REFERENCE LAB | [address] | [place] [address] | [phone] | | [facility] | Drive [...] + | [facility] | [address] | [place] | [phone] | | [facility] | | [address] | | | - LABORATORY | | [...] [address] | [place] | [phone] | | [facility] | | [address] | | | - LABORATORY | | [...] | Performed at: 01 - [facility] [address], | REFERENCE LAB | | [place], [place] [id number] Public Relations Account Executive: Ernie Lee MD, Phone: | [facility] | | [phone] Performed at: 02 - [address] | | | [place], [place] [id number] Public Relations Account Executive: Violette Mcconnell MD, | | | Phone: [phone] | | + + + + + + + + | Performing | Address | City/State/Zipcode | Phone Number | | Organization | | | | + + + + + | REFERENCE LAB | [address] | [place] [address] | [phone] | | [facility] | Drive [...] [address] | [place] | [phone] | | [facility] | | [address] | | | - LABORATORY | | [...] [address] | [place] | [phone] | | [facility] | | [address] | | | - LABORATORY | | [...] | | | POC | | | [facility] | | | | | | [...] [address] | [place] | [phone] | | [facility] | | [address] | | | - LABORATORY | | [...] [address] | [place] | [phone] | | [facility] | | [address] | | | - LABORATORY | | [...] 4.82 (H) | 0.55 - 1.02 | [facility] | | | | | mg/dL | [facility] | | | | | | MEDICAL | | | | | | CENTER - | | | | | | LABORATORY | | + + + + + + | eGFR if not | 9 (L)Comment: GLOMERULAR | >=60 | [facility] | | | | FILTRATION | mL/min/1.73m2 | [facility] | | | [place] | RATE,ESTIMATED | | MEDICAL | | | | mL/min/1.09q7Ejdl than | | CENTER - | | [...] [address] | [place] | [phone] | | [facility] | | [address] | | | - LABORATORY | | [...] + | [facility] | [address] | [place] | [phone] | | [facility] | | [address] | | | - LABORATORY | | [...] [address] | [place] | [phone] | | [facility] | | [address] | | | - LABORATORY | | [...] + + | Performing | Address | City/State/[facility] Servicescode | Phone Number | | Organization | | | | + + + + + | [facility] | [address] | [place] | [phone] | | [facility] | | [address] | | | - LABORATORY | | [...] + | [facility] | [address] | [place] | [phone] | | [facility] | | [address] | | | - LABORATORY | | [...] [address] | [place] | [phone] | | [facility] | | [address] | | | - LABORATORY | | [...] [address] | [place] | [phone] | | [facility] | | [address] | | | - LABORATORY | | [...] [address] | [place] | [phone] | | [facility] | | [address] | | | - LABORATORY | | [...] 7.26 (H) | 0.55 - 1.02 | [facility] | | | | | mg/dL | [...] mL/min/1.73m2 | [facility] | | | [place] | RATE,ESTIMATED | | MEDICAL | | | | mL/min/1.28e4Xdax than | | CENTER - | | [...] | ine Ratio | | | [facility] | | | | | | MEDICAL [...] [address] | [place] | [phone] | | [facility] | | [address] | | | - LABORATORY | | [...] | | | in | | | [facility] | | | | | | MEDICAL | | | | | | CENTER - | | | | | | LABORATORY | | + + + + + + | Comment | Comment: < 0.50 | | [facility] | | | | ng/mL:Procalcitonin | | [facility] | | | | levels below 0.50 [...] [address] | [address] | [place] | [phone] | | [facility] | | [address] | | | - LABORATORY | | [...] + | [facility] | [address] | [place] | [phone] | | [facility] | | [address] | | | - LABORATORY | | [...] [address] | [place] | [phone] | | [facility] | | [address] | | | - LABORATORY | | [...] + | [facility] | [address] | [place], [place] | [phone] | | [facility] | | [address] | | | - LABORATORY | | [...] | this study were reported by the [facility] Imaging radiologist on | | | May [...] PHYSICIAN: Gopi Muñoz MD PATIENT NAME: | [place] PATHOLOGY | | ARA CAMPOS GENDER: F : 1945 | [employer] | | SPECIMEN(S): A PLEURAL FLUID, LEFT [...] preparation was | | | performed by [facility] [address] [facility] | | | [place] [address] and [facility] [address] | | | [place] [address]. Professional interpretation was performed | | | by [facility] - [facility] - [address] | | | [place] [address] (Gluing Machine Operator Electronic: Alen Simpson, | | | .; CLIA#:[id number]).8 Diagnostician: Darcie López M.S., | | | CT([facility]), [facility] Nursing Home Admissions Director Diagnostician: Alen Kearney | | | Calvin [...] [address] | [place] | [phone] | | [facility] | | [address] | | | - LABORATORY | | [...] [address] | [place] | [phone] | | [facility] | | [address] | | | - LABORATORY | | [...] | [facility] [address] [facility] | [address] | [place] | [phone] | | [facility] | | [address] | | | - LABORATORY | | [...] [address] | [place] | [phone] | | [facility] | | [address] | | | - LABORATORY | | [...] + | [facility] | [address] | [place] | [phone] | | [facility] | | [address] | | | - LABORATORY | | [...] | | | | | | [facility] | | [...] | [facility] | | [address] | | | - BLOOD BANK | [...] | | | | | | [employer] | | | | | [...] [address] | [place] | [phone] | | [facility] | | [address] | | | - LABORATORY | | [...] | [facility] [facility] | [address] | [place] | [phone] | | [facility] | | [address] | | | - LABORATORY | | [...] + | [address] [facility] | [address] | [place] | [phone] | | [facility] | | [address] | | | - [...] [address] | [place] | [phone] | | [facility] | | [address] | | | - LABORATORY | | [...] | | | | | | [facility] | | [...] | [facility] | [address] | [place] | [phone] | | [facility] | | [address] | | | - LABORATORY | | [...] mL/min/1.73m2 | [facility] | | | [place] | RATE,ESTIMATED | | MEDICAL | | | | mL/min/1.16y3Hvoe than | | CENTER - | | [...] + | [facility] | [address] | [place] | [phone] | | [facility] | | [address] | | | - LABORATORY | | [...] [address] | [place] | [phone] | | [facility] | | [address] | | | - LABORATORY | | [...] [address] [address] | [place] | [phone] | | [facility] | | [address] | | | - LABORATORY | | [...]
--- OUTSIDE RECORDS SUMMARY | ~2019-08-24 | XMS | Encounter Summary ---
Demographics + + + | Address | [address] | | | [place] [address] | + + + | Home Phone [...] Author | [facility] | | | and [place] | + + + | Organization | [facility] | | | and [place] | + + + | Address | Unknown | + + + | Phone | Unavailable | + + + Support + + + + + | Name | Relationship | Address | Phone | + + + + + | India Tilley | ECON | [id number] | | | | | [place], [place] | | | | | [address] | | + + + + + [...] | [facility] [address] | MD [address] [facility] | | | | | [address] | [place], [place] | | | | | [place], [place] | [address] | | | | | [address] | | | | | | [phone] | | | +--------+ + + + [...]
--- OUTSIDE RECORDS SUMMARY | ~2019-08-24 | XMS | Encounter Summary ---
Demographics + + + | Address | [address] | | | [place] [address] | + + + | Home Phone [...] | Author | [facility] | | | and [place] | + + + | Organization | [facility] | | | and [place] | + + + | Address | Unknown | + + + | Phone | Unavailable | + + + Support + + + + + | Name | Relationship | Address | Phone | + + + + + | India Tilley | ECON | [id number] | | | | | [place], [place] | | | | | [address] | | + + + + + | Yina La | ECON | Unknown | | + + + + + | Yina Peterson | ECON | Unknown | | + + + + + | Leatha Casillas | ECON | Unknown | | + + + + + Care Team Providers + +------+ + | Care Receiver/Laborer Name | Role | Phone | + [...] | [address] | [address], [place] | | | | | [place] | [address] [place] | | | | | [address] | [address] | | | | | [phone] | | | +--------+ + + + [...]
--- OUTSIDE RECORDS SUMMARY | ~2019-08-24 | XMS | Encounter Summary ---
Demographics + + + | Address | [address] | | | [place] [address] | + + + | Home Phone [...] Author | [facility] | | | and [place] | + + + | Organization | [facility] | | | and [place] | + + + | Address | Unknown | + + + | Phone | Unavailable | + + + Support + + + + + | Name | Relationship | Address | Phone | + + + + + | India Tilley | ECON | [id number] | | | | | [place], [place] | | | | | [address] | | + + + + + | Yina La | ECON | Unknown | | + + + + + | Yina Peterson | ECON | Unknown | | + + + + + | Leatha Casillas | ECON | Unknown | | + + + + + Care Team Providers + +------+ + | Care Production Control Supervisor Name | Role | Phone | [...] | | | | | [address] | [place] | | | | | [place] | [address] | | | | | [address] | | | | | | [phone] | | | +--------+ + + + [...] +----+---+ + + | | 2 | [place] | | | | 2 | 43-degrees [...] 02/05/18 0130 by | | eral | apci-lre-einheo catheter system; | Keren Hernandez RN | [...] | | | |Electronically Signed by: DO Eleazra Dillon date/time : 02/04/2018 22:17 | | [...]
--- OUTSIDE RECORDS SUMMARY | ~2019-08-24 | XMS | Encounter Summary ---
Demographics + + + | Address | [address] | | | [place] [address] | + + + | Home Phone [...] | Author | [facility] | | | and [place] | + + + | Organization | [facility] | | | and [place] | + + + | Address | Unknown | + + + | Phone | Unavailable | + + + Support + + + + + | Name | Relationship | Address | Phone | + + + + + | India Tilley | ECON | [id number] | | | | | [place], [place] | | | | | [address] | | + + + + + | Yina La | ECON | Unknown | | + + + + + | Yina Peterson | ECON | Unknown | | + + + + + | Leatha Casillas | ECON | Unknown | | + + + + + Care Team Providers + +------+ + | Care Oncology Specialist Name | Role | Phone | [...] + + | 08/17/ | Telephone | [facility] | Louise Fink, | Procedure (no show) | | 2019 | | VASCULAR SURGERY | RN | | | | | [address] | | | | | | [place] | | | | | | [address] | | | | | | [phone] | | | +--------+ + + + [...]
--- OUTSIDE RECORDS SUMMARY | ~2019-08-24 | XMS | Encounter Summary ---
Demographics + + + | Address | [address] | | | [place] [address] | + + + | Home Phone [...] + | Author | [facility] | | | and [place] | + + + | Organization | [facility] | | | and [place] | + + + | Address | Unknown | + + + | Phone | Unavailable | + + + Support + + + + + | Name | Relationship | Address | Phone | + + + + + | India Tilley | ECON | [id number] | | | | | [place], [place] | | | | | [address] | | + + + + + | Yina La | ECON | Unknown | | + + + + + | Yina Peterson | ECON | Unknown | | + + + + + | Leatha Casillas | ECON | Unknown | | + + + + + Care Team Providers + +------+ + | Care Social Media Community Manager Name | Role | Phone | [...] NEPHROLOGY [address] | M, DO [address] | | | | | [address] | [place] | | | | | [place], [place] | [place] | | | | | [address] | [address] | | | | | [phone] | | | +--------+ + + + [...]
--- OUTSIDE RECORDS SUMMARY | ~2019-08-24 | XMS | Encounter Summary ---
Demographics + + + | Address | [address] | | | [place] [address] | + + + | Home Phone [...] + | India Campos | ECON | [address] | | | | | [place], [place] | | | | | [address] | | + + + + + | Yina La | ECON | Unknown | | + + + + + | Yina Peterson | ECON | Unknown | | + + + + + | Leatha Casillas | ECON | Unknown | | + + + + + Care Team Providers + +------+ + | Care Restaurant Inspector Name | Role | Phone | [...] | Surgery | [facility] | AnrdiyAkash | DI: MRI | | 2019 | | [facility] OP | MD Juan F [address] | | | | [address] | [address] | | | | | [place], [place] | [place] [address] | | | | | [address] | [phone] | | | | | [phone] | | | +--------+---------+ + + + [...] Christina MD - 05/25/2019 11:24 AM PDT [place], [place] HOSPITALIST DISCHARGE SUMMARY Pt. Name/Age/: Ara [...] the setting of ESRD and missing HD SPORTS PHYSICIAN. S/p thoracentesis wit h 1300cc fluid removed, studies c/w transudative effusion. Cytology negative for malignant c ells. No growth on culture thus far. Patient is on room air. Of note, recent echo in March sh owed normal EF. #Hypertensive urgency in the s/o volume overload #ESRD on HD Suspect chronic nonadherence with medications and patient also missed HD SPORTS PHYSICIAN. SBP 200s on a rrival here. Blood pressure improved after HD, resumption of home medications. Amlodipine an d losartan also added, Nephrology will CTM as outpatient. #Acute metabolic encephalopathy Possibly 2/2 medication as patient received 1mg Ativan at OSH SPORTS PHYSICIAN. At baseline currently. #Recent osteomyelitis Patient admitted [...] information: [address] [place] [address] Condition: stable Diet: renal, cc Greater than 30 minutes were spent on discharge and coordination of post-hospital care. Electronically signed by: Nora Christina MD, 05/25/2019 11:24 [facility] documented in this enco unter Discharge [...] will likely include a biopsy in the [facility] down the line. Nora Christina [...] Arthritis, Back pain, Breast cancer ([facility]), Cancer ([facility]), Diabetes ([facility]), Heart disease, Hemodialysis patient ([facility]), History of blood clots, Hypercholesteremia, Hypertensio n, Hypothyroidism, Renal failure, Seasonal allergies, and Stroke (cerebrum) ([facility]). . Risk fa ctors for MDR organisms [...] Culture, Body Fluid, Sterile, Smear, with Anaerobes [[id number]] Collected: 05/22/19 1509 Order Status: Sent Lab Status: In process Updated: 05/22/19 151 Specimen: Body Fluid from Pleural Fluid, Left Narrative: The following orders were created for panel order Culture, Body Fluid, Sterile, Smear, wit h Anaerobes. Procedure Abnormality Status --------- ------ Culture, Body Fluid, Aerobe[[id number]] Preliminary result Culture, Body Fluid, Bre...[[id number]] In process Please view results for these tests on the individual orders. Culture, Fungus, Smear [[id number]] Collected: 05/22/19 150 Order Status: Sent Lab Status: In process Updated: 05/22/19 151 Specimen: Body Fluid from Pleural Fluid, Left Culture, Body Fluid, Aerobe [[id number]] Collected: 05/22/19 150 Order Status: Completed Lab Status: Preliminary result Updated: 05/24/19 1038 Specimen: Body Fluid from Pleural Fluid, Left Culture No growth to date Gram Stain Result 4+ White Blood Cells No organisms seen Culture, Body Fluid, Anaerobe [[id number]] Collected: 05/22/19 150 Order Status: Resulted Lab Status: In process Updated: 05/22/19 151 Specimen: Body Fluid from Pleural Fluid, Left Culture, MRSA [[id number]] Collected: 05/20/192021 Order Status: Completed Lab Status: Final result Updated: 05/22/19 0753 Specimen: Tissue from Nares Culture Negative for MRSA by chromogenic agar method. 2+ Coagulase positive Staphylococcus Culture, Blood, 2nd Specimen [[id number]] Collected: 05/18/19 1548 Order Status: Completed Lab Status: Final result Updated: 1945 RESULT NO GROWTH 6 DAYS RESULT Testing performed at [facility];[address] [place] [address];[place] [address] Comment: Testing performed at [facility], [address] [place] [address], [place] [address] Culture, Blood [[id number]] Collected: 05/18/19 150 Order Status: Completed Lab Status: Final result Updated: 1945 Specimen: Blood from Antecubital, Right RESULT NO GROWTH 6 DAYS RESULT Testing performed at [facility];[address] [place] [address];[place] [address] Comment: Testing performed at [facility], [address], [place] [address] Culture, Blood [[id number]] Collected: 05/18/19 1447 Order Status: Canceled Lab [...] and htn Prior to admission dialysis schedule: [facility] Vancomycin Dosing in HD patients: Loading dose [...] ESR, Cxs, case with his previous ID Special Events Manager, Dr. Nick Miller MD . He [...] Bx's here. Therefore, shai kearney confer with [facility] IR, outpt. She was agreeable to staying one more nite for HD and clarif y AB regimen. Vanc. /Cefepime were given, IV, during discussion, after reviewing MRI report but before the phone conversation with Dr. Jung. BP control is better. Her Mental status is very clear. Also had HD x 5 hrs, 2K+, 35 HCO3 a nd tolerated well. [facility] Joo Rodriguez, Travelift Operator - 05/24/2019 3:46 PM PDT VANCOMYCIN PER PHARMACY PROTOCOL: AMS/Drug Name - Vancomycin Patient: Ara Campos [id number] Admit: 05/20/2019 20:16 RELEVANT ALLERGIES: Amoxicillin 74 yrs old female patient admitted on 05/20/2019 for shortness of breath. Patient is receiv ing vancomycin starting on 05/24/2019 for osteomyelitis. Patient has a past medical histor y of Anemia, Arthritis, Back pain, Breast cancer ([facility]), Cancer ([facility]), Diabetes ([facility]), Heart disease, Hemodialysis patient ([facility]), History of blood clots, Hypercholesteremia, Hypertensio n, Hypothyroidism, Renal failure, Seasonal allergies, and Stroke (cerebrum) ([facility]). . Risk fa ctors for MDR organisms [...] Culture, Body Fluid, Sterile, Smear, with Anaerobes [[id number]] Collected: 05/22/19 1500 Order Status: Sent Lab Status: In process Updated: 05/22/19 1511 Specimen: Body Fluid from Pleural Fluid, Left Narrative: The following orders were created for panel order Culture, Body Fluid, Sterile, Smear, wit h Anaerobes. Procedure Abnormality Status --------- ------ Culture, Body Fluid, Aerobe[[id number]] Preliminary result Culture, Body Fluid, Bre...[[id number]] In process Please view results for these tests on the individual orders. Culture, Fungus, Smear [[id number]] Collected: 05/22/19 1509 Order Status: Sent Lab Status: In process Updated: 05/22/19 1510 Specimen: Body Fluid from Pleural Fluid, Left Culture, Body Fluid, Aerobe [[id number]] Collected: 05/22/19 1509 Order Status: Completed Lab Status: Preliminary result Updated: 05/24/19 1038 Specimen: Body Fluid from Pleural Fluid, Left Culture No growth to date Gram Stain Result 4+ White Blood Cells No organisms seen Culture, Body Fluid, Anaerobe [[id number]] Collected: 05/22/19 1509 Order Status: Resulted Lab Status: In process Updated: 05/22/19 151 Specimen: Body Fluid from Pleural Fluid, Left Culture, MRSA [[id number]] Collected: 05/20/192021 Order Status: Completed Lab Status: Final result Updated: 05/22/19 0753 Specimen: Tissue from Nares Culture Negative for MRSA by chromogenic agar method. 2+ Coagulase positive Staphylococcus Culture, Blood, 2nd Specimen [[id number]] Collected: 05/18/19 1548 Order Status: Completed Lab Status: Final result Updated: 05/24/19 0546 RESULT NO GROWTH 6 DAYS RESULT Testing performed at [facility];[address] [place] [address] Comment: Testing performed at [facility], [address] [place] [address] Culture, Blood [[id number]] Collected: 05/18/19 1508 Order Status: Completed Lab Status: Final result Updated: 05/24/19 0546 Specimen: Blood from Antecubital, Right RESULT NO GROWTH 6 DAYS RESULT Testing performed at [facility];[address] [place] [address] Comment: Testing performed at [facility], [address] [place] [address] Culture, Blood [[id number]] Collected: 05/18/19 1447 Order Status: Canceled Lab [...] BP elevated Prior to admission dialysis schedule: [facility] Vancomycin Dosing in HD patients: Loading dose [...] Monitoring Protocol Electronically signed by: Joo Bo, Travelift Operator 05/24/2019 15:46Electroni terri signed by Joo Bo, Travelift Operator at 05/24/2019 4:49 PM Kwame Guerin MD - 05/24/2019 11:04 AM PDTFormatting of this note might be different from the origin [facility]OD[facility] [place] [facility] PROGRESS NOTE Patient: Ara Campos : 1945: Age: 74 y.o. MedRec: [id number] Admission date: 05/20/2019 Hospital day # : [...] as patient received 1mg Ativan at OSH SPORTS PHYSICIAN. At baseline currently. #Recent osteomyelitis Patient admitted 03/24- with T11-12 osteomyelitis and completed 6 weeks vanc/cefepime. Rep eat MRI again redemonstrated possible osteomyelitis - vanc and cefepime have been resumed, Deepa Muñoz is discussing case with ID. #Diabetes Blood sugars at goal. CCM. Patient is again very upset about the food provided at the [facility] and is eating little to no [...] Culture, Body Fluid, Sterile, Smear, with Anaerobes [[id number]] Collected: 05/22/19 150 Order Status: Sent Lab Status: In process Updated: 05/22/19 151 Specimen: Body Fluid from Pleural Fluid, Left Narrative: The following orders were created for panel order Culture, Body Fluid, Sterile, Smear, wit h Anaerobes. Procedure Abnormality Status --------- ------ Culture, Body Fluid, Aerobe[[id number]] Preliminary result Culture, Body Fluid, Bre...[[id number]] In process Please view results for these tests on the individual orders. Culture, Fungus, Smear [[id number]] Collected: 05/22/191508 Order Status: Sent Lab Status: In process Updated: 05/22/19 151 Specimen: Body Fluid from Pleural Fluid, Left Culture, Body Fluid, Aerobe [[id number]] Collected: 05/22/19 150 Order Status: Completed Lab Status: Preliminary result Updated: 05/24/19 1038 Specimen: Body Fluid from Pleural Fluid, Left Culture No growth to date Gram Stain Result 4+ White Blood Cells No organisms seen Culture, Body Fluid, Anaerobe [[id number]] Collected: 05/22/191508 Order Status: Resulted Lab Status: [...] 6L/min Nora Christina MD 05/24/2019 11:04 [facility] Michelle Solorzano Phar mD - 05/23/2019 [...] ? Pharmacy list names: [facility] ([place]) ? [employer] insurance reported information Vaccines up [...] Tobacco & Alcohol use/frequency: ? Recreational substances: Gltyfptfp-ossfouc-cmrj asked how much or how often patient sta rich "I smoke as much as I want" Other: No changes to SPORTS PHYSICIAN list, due to the fact that patient was very non compliant. She either di d not want to take her medications, or she stated that she did not know if she was taking th em. She did not want to do the interview. Best possible SPORTS PHYSICIAN medication list after pharmacy review: Medication review performed and electronically signed by Kerry Jordan, Electrical Line Worker 05/23/2019 16:20 Reviewed by Michelle Ochoa PharmD 05/23/2019 18:26 Nora Gueirn MD - 05/23/2019 3:20 PM PDT [facility] [place] HOSPITALIST PROGRESS NOTE Patient: Ara Campos : 1945: Age: 74 y.o. MedRec: [id number] Admission date: 05/20/2019 Hospital day # : [...] as patient received 1mg Ativan at OSH SPORTS PHYSICIAN. At baseline currently. #Recent osteomyelitis Patient admitted [...] dextrose 10% (D10W) infusion Intravenous Continuous PRN Olegairo Peng MD docusate sodium (COLACE) capsule 100 [...] Culture, Body Fluid, Sterile, Smear, with Anaerobes [[id number]] Collected: 05/22/19 1503 Order Status: Sent Lab Status: In process Updated: 05/22/191512 Specimen: Body Fluid from Pleural Fluid, Left Narrative: The following orders were created for panel order Culture, Body Fluid, Sterile, Smear, wit h Anaerobes. Procedure Abnormality Status --------- ------ Culture, Body Fluid, Aerobe[[id number]] Preliminary result Culture, Body Fluid, Bre...[[id number]] In process Please view results for these tests on the individual orders. Culture, Fungus, Smear [[id number]] Collected: 05/22/19 1509 Order Status: Sent Lab Status: In process Updated: 05/22/19 1510 Specimen: Body Fluid from Pleural Fluid, Left Culture, Body Fluid, Aerobe [[id number]] Collected: 05/22/19 150 Order Status: Completed Lab Status: Preliminary result Updated: 05/23/19 09 Specimen: Body Fluid from Pleural Fluid, Left Culture No growth to date Gram Stain Result 4+ White Blood Cells No organisms seen Culture, Body Fluid, Anaerobe [[id number]] Collected: 05/22/19 150 Order Status: Resulted Lab Status: In process Updated: 05/22/19 151 Specimen: Body Fluid from Pleural Fluid, Left Culture, MRSA [[id number]] Collected: 05/20/192021 Order Status: Completed Lab Status: [...] 0.5L/min Nora Christina MD 05/23/2019 15:20 [facility] documented in this enco unter Plan [...] [address] | [place] | [phone] | | [facility] | | [address] | | | - LABORATORY | | [...] [address] | [place] | [phone] | | [facility] | | [address] | | | - LABORATORY | | [...] 4.14 (H) | 0.55 - 1.02 | [facility] | | | | | mg/dL | [facility] | | | | | | MEDICAL | | | | | | CENTER - | | | | | | LABORATORY | | + + + + + + | eGFR if not | 11 (L)Comment: | >=60 | [facility] | | | | GLOMERULAR FILTRATION | mL/min/1.73m2 | [facility] | | | BRITISH | RATE,ESTIMATED | | MEDICAL | | | | mL/min/1.48b9Ptiy than | | CENTER - | | [...] [address] | [place] | [phone] | | [facility] | | [address] | | | - LABORATORY | | [...] | [facility] [facility] | [address] | [place] | [phone] | | [facility] | | [address] | | | - LABORATORY | | [...] [address] | [place] | [phone] | | [facility] | | [address] | | | - LABORATORY | | [...] + | [facility] | [address] | [place] | [phone] | | [facility] | | [address] | | | - LABORATORY | | [...] [address] | [place] | [phone] | | [facility] | | [address] | | | - LABORATORY | | [...] mL/min/1.73m2 | [facility] | | | BRITISH | RATE,ESTIMATED | | MEDICAL | | | | mL/min/1.10a6Ooau than | | CENTER - | | [...] [address] | [place] | [phone] | | [facility] | | [address] | | | - [...] [address] | [place] | [phone] | | [facility] | | [address] | | | - LABORATORY | | [...] | [address] [address] [facility] | [address] | [place] | [phone] | | [facility] | | [address] | | | - LABORATORY | | [...] | | POC | | | [facility] | | | | | [...] ST. | [address] | [place], [place] | [phone] | | [facility] | | [address] | | | - [...] [address] | [place] | [phone] | | [facility] | | [address] | | | - LABORATORY | | [...] ST. | [address] | [place], [place] | [phone] | | [facility] | | [address] | | | - LABORATORY | | [...] mL/min/1.73m2 | [facility] | | | BRITISH | RATE,ESTIMATED | | MEDICAL | | | | mL/min/1.05j0Onfs than | | CENTER - | | [...] [address] | [place] | [phone] | | [facility] | | [address] | | | - LABORATORY | | [...] + | [facility] | [address] | [place] | [phone] | | [facility] | | [address] | | | - LABORATORY | | [...] [address] | [place] | [phone] | | [facility] | | [address] | | | - LABORATORY | | [...] [address] | [place] | [phone] | | [facility] | | [address] | | | - LABORATORY | | [...] + | [address] | [address] | [place] | [phone] | | [facility] | | [address] | | | - LABORATORY | | [...] REFERENCE LAB | | [place] [id number] [employer] Gr[employer]: Violette Mcconnell MD, Phone: | [facility] TETE | | [phone] | | + + + + + + + + | Performing | Address | City/State/Zipcode | Phone Number | | Organization | | | | + + + + + | REFERENCE LAB | [address] | [place] [address] | [phone] | | [facility] | Drive [...] + | Performed at: 01 - [facility] [place] [address], | REFERENCE LAB | | [place], [place] [id number] [employer]: Ernie Lee MD, Phone: | [facility] | | [phone] | | + + + + + + + + | Performing | Address | City/State/Zipcode | Phone Number | | Organization | | | | + + + + + | REFERENCE LAB | [address] | [place] [address] | [phone] | | [facility] | Drive [...] + | [facility] | [address] | [place] | [phone] | | [facility] | | [address] | | | - LABORATORY | | [...] [address] | [place] | [phone] | | [facility] | | [address] | | | - LABORATORY | | [...] + + | Performed at: 01 - [facility] [address], | REFERENCE LAB | | [place], [place] [id number] [employer]: Ernie Lee MD, Phone: | [facility] | | [phone] Performed at: 02 - [address] | | | [place], [place] [id number] [employer] Gr[employer]: Violette Mcconnell MD, | | | Phone: [phone] | | + + + + + + + + | Performing | Address | City/State/Zipcode | Phone Number | | Organization | | | | + + + + + | REFERENCE LAB | [address] | [place] [address] | [phone] | | [facility] | Drive [...] [address] | [place] | [phone] | | [facility] | | [address] | | | - LABORATORY | | [...] [address] | [place] | [phone] | | [facility] | | [address] | | | - LABORATORY | | [...] | [address] | [place] | [phone] | | [facility] | | [address] | | | - LABORATORY | | [...] | | | POC | | | [facility] | | | | | [...] [address] | [place] | [phone] | | [facility] | | [address] | | | - LABORATORY | | [...] 4.82 (H) | 0.55 - 1.02 | [facility] | | | | | mg/dL | [facility] | | | | | | MEDICAL | | | | | | CENTER - | | | | | | LABORATORY | | + + + + + + | eGFR if not | 9 (L)Comment: GLOMERULAR | >=60 | [place] | | | | FILTRATION | mL/min/1.73m2 | [facility] | | | BRITISH | RATE,ESTIMATED | | MEDICAL | | | | mL/min/1.19t1Yvrp than | | CENTER - | | [...] [address] | [place] | [phone] | | [facility] | | [address] | | | - LABORATORY | | [...] + | [facility] | [address] | [place] | [phone] | | [facility] | | [address] | | | - LABORATORY | | [...] [address] | [place] | [phone] | | [facility] | | [address] | | | - LABORATORY | | [...] + | Performing | Address | City/State/[facility] Hospitalcode | Phone Number | | Organization | | | | + + + + + | [facility] | [address] | [place] | [phone] | | [facility] | | [address] | | | - LABORATORY | | [...] + | [facility] | [address] | [place] | [phone] | | [facility] | | [address] | | | - LABORATORY | | [...] [address] | [place] | [phone] | | [facility] | | [address] | | | - LABORATORY | | [...] [address] | [place] | [phone] | | [facility] | | [address] | | | - LABORATORY | | [...] [address] | [place] | [phone] | | [facility] | | [address] | | | - LABORATORY | | [...] 7.26 (H) | 0.55 - 1.02 | [facility] | | | | | mg/dL | [...] mL/min/1.73m2 | [facility] | | | BRITISH | RATE,ESTIMATED | | MEDICAL | | | | mL/min/1.23q1Hyot than | | CENTER - | | [...] | ine Ratio | | | [facility] | | | | | [...] [address] | [place] | [phone] | | [facility] | | [address] | | | - LABORATORY | | [...] | | | in | | | [facility] | | | | | | MEDICAL | | | | | | CENTER - | | | | | | LABORATORY | | + + + + + + | Comment | Comment: < 0.50 | | [facility] | | | | ng/mL:Procalcitonin | | [facility] | | | | levels below 0.50 [...] [address] | [place] | [phone] | | [facility] | | [address] | | | - LABORATORY | | [...] + | [facility] | [address] | [place] | [phone] | | [facility] | | [address] | | | - LABORATORY | | [...] [address] | [place] | [phone] | | [facility] | | [address] | | | - LABORATORY | | [...] + | [facility] | [address] | [place], [place] | [phone] | | [facility] | | [address] | | | - LABORATORY | | [...] | this study were reported by the [facility] Imaging radiologist on | | | [...] PHYSICIAN: Gopi Muñoz MD PATIENT NAME: | [place] PATH[facility] | | ARA CAMPOS GENDER: F : 1945 | [employer] | | SPECIMEN(S): A PLEURAL FLUID, LEFT [...] preparation was | | | performed by [employer] [id number] [facility] | | | [place] [address] and [facility] [address] [address] [facility] [address] | | | [place] [address]. Professional interpretation was performed | | | by [employer] - [facility] - [address] | | | [place] [address] (Welding Machine Operator Arc: Alen Simpson, | | | .; CLIA#:[id number]).8 Diagnostician: Darcie López M.S., | | | CT([facility]), [facility] Fourdrinier Operator Diagnostician: Alen Kearney | | | [...] [address] | [place] | [phone] | | [facility] | | [address] | | | - LABORATORY | | [...] [address] | [place] | [phone] | | [facility] | | [address] | | | - LABORATORY | | [...] | [facility] [address] [facility] | [address] | [place] | [phone] | | [facility] | | [address] | | | - LABORATORY | | [...] [address] | [place] | [phone] | | [facility] | | [address] | | | - LABORATORY | | [...] + | [facility] | [address] | [place] | [phone] | | [facility] | | [address] | | | - LABORATORY | | [...] [place] | | | [facility] | | [address] | | | - BLOOD BANK | [...] | | | | | | [employer] | | | | | [...] [address] | [place] | [phone] | | [facility] | | [address] | | | - LABORATORY | | [...] | [address] [facility] | [address] | [place] | [phone] | | [facility] | | [address] | | | - LABORATORY | | [...] + | [facility] | [address] | [place] | [phone] | | [facility] | | [address] | | | - LABORATORY | | [...] [address] | [place] | [phone] | | [facility] | | [address] | | | - LABORATORY | | [...] | [facility] [facility] | [address] | [place] | [phone] | | [facility] | | [address] | | | - LABORATORY | | [...] mL/min/1.73m2 | [facility] | | | BRITISH | RATE,ESTIMATED | | MEDICAL | | | | mL/min/1.06f6Dxlo than | | CENTER - | | [...] + | [facility] | [address] | [place] | [phone] | | [facility] [facility] | | [id number] | | | - LABORATORY | | [...] [address] | [place] | [phone] | | [facility] | | [id number] | | | - LABORATORY | | [...] [address] | [place] | [phone] | | [facility] | | [id number] | | | - LABORATORY | | [...]
--- OUTSIDE RECORDS SUMMARY | ~2019-08-24 | XMS | Encounter Summary ---
Demographics + + + | Address | [address] | | | [place] [address] | + + + | Home Phone [...] | [facility] | | | and Kamaljitana | + + + | Organization | [facility] | | | and [place] | + + + | Address | Unknown | + + + | Phone | Unavailable | + + + Support + + + + + | Name | Relationship | Address | Phone | + + + + + | India Tilley | ECON | [address] | | | | | [place], [place] | | | | | [address] | | + + + + + | Yina La | ECON | Unknown | | + + + + + | Yina Peterson | ECON | Unknown | | + + + + + | Leatha Casillas | ECON | Unknown | | + + + + + Care Team Providers + +------+ + | Care Antenna Specialist Name | Role | Phone | [...] | (Fax) | | | | | [phone] | | | | | | [phone] | | | +--------+---------+ + + + [...] of IV abx Follow Up Appointments: [address] [address] [facility] [address] [place] [id number] [facility] [address] [id number] Discharge Disposition: Home with Home Health Consultants This Admission: ID, Nephrology Hospital Course: 73-year-old female with history of ESRD on hemodialysis, hypertension, type 2 diabetes, hyp othyroidism, chronic anemia, hyperlipidemia with a history of stroke transferred from [facility] for evaluation of T11-T12 lesion noted on [...] had planned to go to SNF [facility] [place] - of which has accepted her [...] dialysis days after dialysis Osteomyelitis/Discitis of T11, [id number] -MRI spine 03/23/19: "mild paravertebral soft tissue [...] dialysis patient - has OP clinic in [place] already Macrocytic anemia likely secondary to-likely anemia [...] Take 4,000 Units by mouth Daily. epoetin karhtik 10,000 units/mL injection Inject 4,000 Units under [...] Value Units Date/Time Culture, Aerobic + Anaerobic [[id number]] Collected: 03/24/19 1514 Order Status: Completed Lab Status: Final result Updated: 03/29/1918 Specimen: Body Fluid from Vertebrae, Thoracic FINAL REPORT -- No Growth No anaerobes isolated Gram Stain Few Neutrophils No squamous epithelial cells seen No organisms seen Comment: Performed by [facility] [address] [place] [address] Gram Stain [[id number]] Collected: 03/24/19 151 Order Status: Canceled Lab Status: No result Updated: 03/24/191514 Specimen: Body Fluid from Vertebrae, Thoracic Culture, AFB Smear [[id number]] Collected: 03/24/191513 Order Status: Completed Lab Status: Preliminary result Updated: 03/25/19 1054 Specimen: Body Fluid from Vertebrae, Thoracic AFB Smear Result No Acid Fast Bacilli Seen Comment: Performed by [facility] [address] [place] [address] Culture, Fungus, Smear [[id number]] Collected: 03/24/19 151 Order Status: Completed Lab Status: Preliminary result Updated: 03/25/19 1039 Specimen: Body Fluid from Vertebrae, Thoracic CALCOFLUOR No fungal elements seen Comment: Performed by [facility] [address] [place] [address] Culture, Blood [[id number]] Collected: 03/23/19 2333 Order Status: Completed Lab Status: Final result Updated: 03/28/19 2352 Specimen: Blood Culture No growth after 5 days incubation. Culture, Blood [[id number]] Collected: 03/23/19 2255 Order Status: Completed Lab [...] this chart may have been created with Tadpoles voice recognition software. Occasi onal wrong-word or [...] 03/31/2019 5:42 PM PDTPatient left with family, [facility] supplies and i nstructions received before discharge and RX's filled at outpt pharmacy. VSS, ambulating wit h SBA, A&O x4, accepting of discharge. Dialysis completed this AM. Pain controlled with q4 o xy, LD 1400. Home health will f/u tomorrow. AVS reviewed and sent with patient, verbalized u nderstanding. Merry Hess MSW - 03/31/2019 11:05 AM PDTSOCIAL WORK PLAN: Home with [facility] and [facility] NEXT STEPS: 1. Pt to follow up with [facility] 2. [facility] to follow up with pt at dc INTERVENTION: SW spoke with [facility], pt has a $2.50 out of pocket cost weekly, pt is agreeable to pay for this. Therefore pt will dc today with [facility]. SW provided [facility] with hard script for IV abx. SW faxed over HH order to [facility], SW faxed over IV vanco script to [facility]. [facility] notified of pt's dc home. notified. [facility] to meet with pt later this afternoon for teach. SW provided pt with 3 gas cards to assist with transportation. No further dc needs identified. SW received call from [facility] clinic that they cannot provide IV Vanco as Vanco h as not been consigned by [facility] that has privileges in [place]. IV Vanco will now be done b y [facility], [address] [place] faxed over hard script to Candie. They will have both IV Abx ready and will teach pt shortly. No further dc needs identified. CONTACTS: Yina La: sister India Tilley: sister [place] Transportation: [place] Medicaid Transportation fax: [phone] [facility]: [phone] fax: [phone] [facility] [phone] [facility]: [phone] [facility]: [phone] [facility] FAX: [phone] aray Michelle Taylor - 03/31/2019 10:12 AM PDT Patient: Estefani Tilley Date of : 1945 Admit Date: 03/24/2019 Date of Service: 03/31/2019 PCP: Francisca Womack PA-C Hospital Day: Hospital Day: 8 Hospital Course: 73-year-old female with history of ESRD on hemodialysis, hypertension, type 2 diabetes, hyp othyroidism, chronic anemia, hyperlipidemia with a history of stroke transferred from [facility] for evaluation of T11-T12 lesion noted on [...] to go to SNF ([facility] in [place], [place] - of which has accepted her [...] dialysis patient - has OP clinic in [place] already Macrocytic anemia likely secondary to-likely anemia [...] hoping to arrange home IV antibiotics through [facility]. Awaiting to see if insurance will cover [...] - 99 mg/dL Final Comment: Performed by [place] [address] [facility] [place] [address] 03/30/2019 21:14 200 (H) 65 - 99 mg/dL Final Comment: Performed by [facility] [address] [facility] [place] [address] 03/30/2019 17:46 111 (H) 65 - 99 mg/dL Final Comment: Performed by [facility] [address] [facility] [place] [address] 12/09/2018 18:05 113 (H) 70 - 109 [...] Tilley 73 y.o. 1945 Med. Record Number: [id number] Date of admission: 03/24/2019 Patient admitted with [...] Electronically signed by: Jesus Whitney, 03/31/2019 8:26 [facility] Robb Phillips, PharmD - 03/31/2019 7:25 AM PDTFormatting of this note might be different from [facility] nal. Pharmacy Progress Note VANCOMYCIN PER [...] Nunez MD - 03/30/2019 9:45 PM PDT [facility] INPATIENT ROUNDING NOTE Date of Service: 03/30/2019 Rounding Physician: Randy Corrigan MD Patient Name: Estefani Tilley : 1945 Medical Record: [id number] Hospital Summary: Estefani Tilley is a 73 y.o. female with a PMHx of ESRD, HTN, Dm type 2, hypothyroidism, HLd, CVA who is under the care of Dr Muñoz at [facility] who dialyzes MWF admitted with [...] Corrigan MD, 03/30/2019, 21:45 ettler, Nan Tony, ELECTRICAL AND ELECTRONIC ASSEMBLER - 03/30/2019 2:34 PM PDT SOCIAL WORK D/C PLAN:DC home with [facility] providing IV-ABX and [facility] providing picc care and lab draws vs [facility] NEXT STEPS: -SW will need to follow up with SH[facility] regarding providing IV-ABX to pt. -SW will need to follow up with [facility] regarding providing picc care and lab draws. -SW will need to follow up with [facility] regarding having pt receive vanco do se while at dialysis center if pt is to go home with IV-ABX -SW will need to follow up with [facility] if pt is unable to go home with IV-ABX rega ridng pt's DC -SW will need to fax SNF orders, scripts and PASRR to [facility] if pt is unable to go home -SW will need to provide gas cards to pt's family for transportation home. INTERVENTION:ROBIN spoke with pt regarding acceptance to [facility]. Pt is now wanting to go home with IV-ABX. ROBIN spoke with [facility]. They go out to [place], [place] and have openings for nursing care. Referral faxed to [facility]. Pt is amenable to using [facility] for IV-ABX. SW spoke with [facility]ANDIE liasion who will run pt's be nefits to see if she can DC home with IV-ABX. Pt states that [facility] can provide teach to her son to help administer IV-ABX. SW left message for [facility] to see if they can provide vanco dose to pt at [facility] on Wednesday, Wednesday and Wednesday if pt is able to go home. Pt states that she does dialysis on Wednesday, Wednesday and Wednesday from 12:00-4:00. SW received phone call from [facility]. They have accepted pt for admission if [...] if pt is going to go to [facility] SNF. ASSESSMENT/CHART REVIEW:73 yr old femalewith a history of ESRD on hemodialysis, hypertens ion, type 2 diabetes, hypothyroidism,chronic anemia,hyperlipidemia, hx of stroke [facility] T[facility]-T12 lesion noted on MRI concerning fo r osteomyelitis. SW met with pt's sister, Yina, and her cousin, Keri, who were waiting in pt's room while s he was in dialysis. SW will need to follow up with pt re: d/c planning. Pt's sister and cousin related that pt mostly lives at Yina's house outside [place], [place], but does not like to be tied down because she enjoys attending [place] festivals and many events. She does at [facility] dialysis weekly. Pt has a vehicle and is very independent. D/C TRANSPORT:Pt can be transported home or to [facility] via family in a private car. They will need gas cards to help pay for transportation. BARRIERS TO D/C:none CONTACTS: Yina La: sister India Tilley: sister [place] Transportation: [place] Medicaid Transportation fax: [phone] [facility]: [phone] fax: [phone] [facility] [phone] [facility]: [phone] [facility]: [phone] [facility] FAX: [phone] Nan Cheney MSW - 03/30/2019 12:57 PM PDTSOCIAL WORK D/C PLAN:SNF: [facility] NEXT STEPS:Await bed availability INTERVENTION: ROBIN called and left message for Roneugene at [facility] regarding if they are willing to accept pt and to discuss transportation to and from dialysis. SW also called and left message for [place] Medicaid transportation regarding if they can transp ort pt to and from dialysis upon DC. Pt states that she goes to [facility] in [place], [place] on Wed, Wed, and Fridays from 12:00-4:00 pm. SW left message with [facility] regarding if there was any way that they may also be able to help with transportation to and from dialysis while pt is in rehab and to ensure that pt still has her chair time scheduled. [facility] is only open M on, Wednesday and Wednesday. ASSESSMENT/CHART REVIEW:73 yr old femalewith a history of ESRD on hemodialysis, hypertens ion, type 2 diabetes, hypothyroidism,chronic anemia,hyperlipidemia, hx of stroke [facility] noted on MRI concerning fo r osteomyelitis. ROBIN met with pt's sister, Yina, and her cousin, Keri, who were waiting in pt's room while s he was in dialysis. ROBIN will need to follow up with pt re: d/c planning. Pt's sister and cousin related that pt mostly lives at Yina's house outside [place], [place], but does not like to be tied down because she enjoys attending [place] festivals and many events. She does at [facility]. Pt has a vehicle and is very independent. D/C TRANSPORT:tbd BARRIERS TO D/C:none CONTACTS: Yina La: sister India Tilley: sister [place] Transportation: [place] Transportation fax: [phone] [facility]: [phone] fax: [phone] [facility] [phone] [facility]: [phone] signed by JENNIFER Xavier at 03/30 1:09 PM Michelle Cwoan DO - 03/30/2019 11:09 AM PDTFormatting of [...] with a history of stroke transferred from [facility] for evaluation of T11-T12 lesion [...] dialysis patient - has OP clinic in [place] already ---> will need SW to help [...] SNF - awaiting to hear back from [facility], in [place], [place] regarding possible acceptance there. Medically ready [...] Single Lumen 03/24/19 2143 Left Lateral Forearm lcfw-zol-chkpbt daniel ter system 20 gauge;1 1/4 in [...] - 99 mg/dL Final Comment: Performed by [facility] [address] [place] [address] 03/29/2019 21:09 157 (H) 65 - 99 mg/dL Final Comment: Performed by [facility] [address] [place] [address] 03/29/2019 18:50 91 65 - 99 mg/dL Final Comment: Performed by [facility] [address] [place] [address] 12/09/2018 18:05 113 (H) 70 - 109 [...] this chart may have been created with Tadpoles voice recognition software. Occasi onal wrong-word or sound-alike substitutions may have occurred due to the inherent mckeon itations of voice recognition software. Please read the chart carefully and recognize, using context, where these substitutions have occurred esus Whitney MD - 03/30/2019 7:15 AM PDT . Infectious Diseases Progress Note Pt. Name/Age/: Estefani Tilley 73 y.o. 1945 Med. Record Number: [id number] Date of admission: 03/24/2019 Patient admitted with [...] Electronically signed by: Jesus Whitney, 03/30/2019 7:15 [facility] Mary Wade RN - 03/30/2019 6:16 [...] intention has depression wishful of Monitoring Requirements [facility] Suicide Policy [facility] Suicide Risk/Telesitter Screening Utilizing this rating [...] 03/29/2019 4:18 PM PDTSOCIAL WORK D/C PLAN:SNF: [facility] NEXT STEPS:Await bed availability INTERVENTION: SW called and spoke with admissions person at [facility], they are still discussing pt's [...] anemia,hyperlipidemia, hx of stroke [facility] lesion noted on MRI concerning fo r osteomyelitis. SW met with pt's sister, Yina, and her cousin, Keri, who were waiting in pt's room while s he was in dialysis. SW will need to follow up with pt re: d/c planning. Pt's sister and cousin related that pt mostly lives at Yina's house outside [place], [place], but does not like to be tied down because she enjoys attending [place] festivals and many events. She does at [facility] weekly. Pt has a vehicle and is very independent. D/C TRANSPORT:tbd BARRIERS TO D/C:none CONTACTS: Yina La: sister India Tilley: sister [place] Medicaid Transportation: [facility]: [phone] fax: [phone] [facility] [phone] signed by JENNIFER Contreras at 03/29/2019 4:20 PM Randy Yu MD - 03/29/2019 12:32 PM PDT [facility] INPATIENT ROUNDING NOTE Date of Service: 03/29/2019 Rounding Physician: Randy Corrigan MD Patient Name: Estefani Tilley : 1945 Medical Record: [id number] Hospital Summary: Estefani Tilley is a 73 y.o. female with a PMHx of ESRD, HTN, Dm type 2, hypothyroidism, HLd, CVA who is under the care of Dr Muñoz at [facility] who dialyzes MWF admitted with [...] transferred from [facility] for evaluation of T11-T12 lesion noted on [...] awaiting to hear from [facility], in [place] regarding possible acceptance. May be able [...] dialysis patient - has OP clinic in [place] already ---> will need SW to help [...] SNF - awaiting to hear back from [facility], in [place], [place] regarding possible acceptance there. Could possibly [...] Single Lumen 03/24/19 2143 Left Lateral Forearm rrbl-hok-jowwju daniel ter system 20 gauge;1 1/4 in [...] - 99 mg/dL Final Comment: Performed by [facility] [address] [place] [address] 03/28/2019 21:06 144 (H) 65 - 99 mg/dL Final Comment: Performed by [facility] [address] [place] [address] 03/28/2019 11:22 119 (H) 65 - 99 mg/dL Final Comment: Performed by [facility] [address] [place] [address] 12/09/2018 18:05 113 (H) 70 - 109 [...] this chart may have been created with Tadpoles voice recognition software. Occasi onal wrong-word or [...] Tilley 73 y.o. 1945 Med. Record Number: [id number] Date of admission: 03/24/2019 Patient admitted with [...] Electronically signed by: Jesus Whitney, 03/29/2019 7:35 [facility] zech, Carolina Restrepo RN - 03/28/2019 7:08 PM [id number] - Report called to Sanjuanita GONZALEZ. Pt's belongings . I pad and I phone w/ chargers as well as pt's purse, and shoes, and shirt and pants all sent with her to [address] [place] [address]. Pt had been sitting up eating dinner. [...] transferred from [facility] for evaluation of T11-T12 lesion noted on [...] Single Lumen 03/24/19 2143 Left Lateral Forearm vxox-hks-btvujf daniel ter system 20 gauge;1 1/4 in [...] - 99 mg/dL Final Comment: Performed by [facility] [address] [place] [address] 03/28/2019 07:09 75 65 - 99 mg/dL Final Comment: Performed by [facility] [address] [place] [address] 03/27/2019 20:38 109 (H) 65 - 99 mg/dL Final Comment: Performed by [facility] [address] [place] [address] 12/09/2018 18:05 113 (H) 70 - 109 [...] this chart may have been created with Tadpoles voice recognition software. Occasi onal wrong-word or sound-alike substitutions may have occurred due to the inherent mckeon itations of voice recognition software. Please read the chart carefully and recognize, using context, where these substitutions have occurred Cordell Mcgarry, [facility] - 03/28/2019 2:57 PM PDTSOCIAL WORK D/C PLAN: SNF: [facility] NEXT STEPS: Await bed availability INTERVENTION: On-going dc planning. Rec'd update from [facility]. They confirm they have r ec'd clinical notes and are currently reviewing. SW will follow. ASSESSMENT/CHART REVIEW:73 yr old femalewith a history of ESRD on hemodialysis, hypertens ion, type 2 diabetes, hypothyroidism,chronic anemia,hyperlipidemia, hx of stroke [facility]-T12 lesion noted on MRI concerning fo r osteomyelitis. SW met with pt's sister, Yina, and her cousin, Keri, who were waiting in pt's room while s he was in dialysis. SW will need to follow up with pt re: d/c planning. Pt's sister and co usin related that pt mostly lives at Yina's house outside [place], [place], but does not like to be tied down because she enjoys attending [place] festivals and many events. She does atten d dialysis weekly. Pt has a vehicle and is very independent. D/C TRANSPORT: tbd BARRIERS TO D/C: none CONTACTS: Yina La: sister India Tilley: sister [facility]: [phone] fax: [phone] [facility] [phone] illum, Mario Alberto morales MD - 03/28/2019 7:34 AM PDTFormatting of this note might be different from the maynor rollins Infectious Diseases Progress Note Pt. Name/Age/: Estefani Jimenez Jarek 73 y.o. 1945 Med. Record Number: [id number] Date of admission: 03/24/2019 Patient admitted with [...] Electronically signed by: Carlos Jansen 03/28/2019 7:34 [facility] Katey Solis MD - 03/27/2019 8:58 PM PDT Patient: Estefani Tilley Date of : 1945 Admit Date: 03/24/2019 Date of Service: 03/27/2019 PCP: Francisca [facility]om[facility] PA-C Hospital Day: Hospital Day: 4 Hospital Course: 73-year-old female with history of ESRD on hemodialysis, hypertension, type 2 diabetes, hyp othyroidism, chronic anemia, hyperlipidemia with a history of stroke transferred from [facility] for evaluation of T11-T12 lesion noted on MRI concerning for osteomyeliti s. Infectious disease consulted. Status post aspiration from her thoracic spine, Gram stain negative, cultures pending. Rosemary ent started on empiric vancomycin and cefepime. Will need 6 weeks of IV antibiotics. Discussed with nephrology, recommend placement of Tillman catheter instead of PICC line for termite exterminator IV antibiotics. Nephrology following for maintenance hemodialysis. [...] instead of PICC line for termite exterminator IV antibiotics. Pain management -trial of lidocaine [...] Single Lumen 03/24/19 2143 Left Lateral Forearm sbmk-dnr-zpgpjp daniel ter system 20 gauge;1 1/4 in [...] - 99 mg/dL Final Comment: Performed by [facility] [address] [place] [address] 03/27/2019 13:58 82 65 - 99 mg/dL Final Comment: Performed by [facility] [address] [place] [address] 03/27/2019 06:39 83 65 - 99 mg/dL Final Comment: Performed by [facility] [address] [place] [address] 12/09/2018 18:05 113 (H) 70 - 109 [...] this chart may have been created with Tadpoles voice recognition software. Occasi onal wrong-word or sound-alike substitutions may have occurred due to the inherent mckeon itations of voice recognition software. Please read the chart carefully and recognize, using context, where these substitutions have occurred arlin Diaz, [facility] - 03/27/2019 3:17 PM PDTSOCIAL WORK D/C PLAN: SNF: [facility] NEXT STEPS: Await bed availability INTERVENTION: Rec'd call from Emili at [facility]. She states the contracted f acility near pt's home is [facility]. Spoke with pt and with sister India. Referral and (-) Pasrr sent to [facility]. Copy of Pasrr placed in light chart with request to file into jos rds. SW will follow. ASSESSMENT/CHART REVIEW:73 yr old femalewith a history of ESRD on hemodialysis, hypertens ion, type 2 diabetes, hypothyroidism,chronic anemia,hyperlipidemia, hx of stroke [facility] noted [...] be tied down because she enjoys attending [place] festivals and many events. She does atten d dialysis weekly. Pt has a vehicle and is very independent. D/C TRANSPORT: tbd BARRIERS TO D/C: none CONTACTS: Yina La: sister India Tilley: sister [facility]: [phone] fax: [phone] [facility] [phone] Gregg Mcgarry [facility] - 03/27/2019 2:17 PM PDTFormatting of this note might be different from jerald more. SOCIAL WORK D/C PLAN: SNF NEXT STEPS: SW to follow up with pt regarding SNF preference INTERVENTION: On-going dc planning, chart reviewed and met with pt. Discussed need of halfway IV abx, Discussed options. Provided list of [...] be tied down because she enjoys attending [place] festivals and many events. She does atten d dialysis weekly. Pt has a vehicle and is very independent. ASSESSMENT/CHART REVIEW:73 yr old femalewith a history of ESRD on hemodialysis, hypertens ion, type 2 diabetes, hypothyroidism,chronic anemia,hyperlipidemia, hx of stroke [facility]-T12 lesion noted on MRI concerning fo r osteomyelitis. D/C TRANSPORT: tbd BARRIERS TO D/C: none CONTACTS: Yina La Sister [phone] India Tilley Sister [phone] Chichi, Irish sexton, Floral Merchandiser - 03/27/2019 1:33 PM PDTFormatting of this [...] Vancomycin Protocol Electronically signed by: Aimee Carroll, Floral Merchandiser 03/27/2019 13:33Electronically si gned by Ray Joel, PharmD at 03/27/2019 2:04 PM PDT Associated attestation - Ray Joel PharmD - 03/27/2019 2:04 PM PDTI reviewed and agr ee with the assessment and plan. Ray Joel, PharmDeepa 03/27/2019 14:04 Randy Corrigan MD - 03/27/2019 10:52 AM PDT [facility] INPATIENT ROUNDING NOTE Date of Service: 03/27/2019 Rounding Physician: Randy Corrigan MD Patient Name: Estefani Tilley : 1945 Medical Record: [id number] Hospital Summary: Estefani Tilley is a 73 y.o. female with a PMHx of ESRD, HTN, Dm type 2, hypothyroidism, HLd, CVA who is under the care of Dr Muñoz at [facility] who dialyzes MWF admitted with [...] Jarek 73 y.o. 1945 Med. Record Number: [id number] Date of admission: 03/24/2019 Patient admitted with [...] Electronically signed by: Carlos Jansen, 03/27/2019 7:10 [facility] Katey Solis MD - 03/26/2019 5:40 PM PDT Patient: Estefani Tilley Date of : 1945 Admit Date: 03/24/2019 Date of Service: 03/26/2019 PCP: Francisca Womack PA-C Hospital Day: Hospital Day: 3 Hospital Course: 73-year-old female with history of ESRD on hemodialysis, hypertension, type 2 diabetes, hyp othyroidism, chronic anemia, hyperlipidemia with a history of stroke transferred from [facility] [place] for evaluation of T11-T12 lesion noted on [...] Single Lumen 03/24/19 2143 Left Lateral Forearm nxzw-jrl-aaxubp daniel ter system 20 gauge;1 1/4 in [...] - 99 mg/dL Final Comment: Performed by [facility] [address] [place] [address] 03/26/2019 06:49 116 (H) 65 - 99 mg/dL Final Comment: Performed by [facility] [address] [place] [address] 03/25/2019 20:37 110 (H) 65 - 99 mg/dL Final Comment: Performed by [facility] [address] [place] [address] 12/09/2018 18:05 113 (H) 70 - 109 [...] this chart may have been created with [employer] voice recognition software. Occasi onal wrong-word or sound-alike substitutions may have occurred due to the inherent mckeon itations of voice recognition software. Please read the chart carefully and recognize, using context, where these substitutions have occurred Jose Gamez, Pharmacy R esident - 03/26/2019 10:52 AM PDTFormatting of this note might be different from the [facility] Progress Note VANCOMYCIN PER PHARMACY [...] Vancomycin Protocol Electronically signed by: Jose Menard, Floral Merchandiser 03/26/2019 10:52 su, Randy Nunez MD - 03/26/2019 1 0:38 AM PDT [facility] INPATIENT ROUNDING NOTE Date of Service: 03/26/2019 Rounding Physician: Randy Corrigan MD Patient Name: Estefani Tilley : 1945 Medical Record: [id number] Hospital Summary: Estefani Tilley is a 73 y.o. female with a PMHx of ESRD, HTN, Dm type 2, hypothyroidism, HLd, CVA who is under the care of Dr Muñoz at [facility] who dialyzes MWF admitted with possible osteo disccitis t11/t12 ASSESSMENT AND PLAN 1. ESRD/HD dependent Access is LUE AVF working well No indications for HD today Usually dialyzes MWF at [facility] Hd tommorow 2. Anemia Hg [...] Tilley 73 y.o. 1945 Med. Record Number: [id number] Date of admission: 03/24/2019 Patient admitted with [...] Electronically signed by: Carlos Jansen, 03/26/2019 8:03 [facility] Katey Solis MD - 03/25/2019 3:50 PM PDT Patient: Estefani Tilley Date of : 1945 Admit Date: 03/24/2019 Date of Service: 03/25/2019 PCP: Francisca Womack PA-C Hospital Day: Hospital Day: 2 Hospital Course: 73-year-old female with history of ESRD on hemodialysis, hypertension, type 2 diabetes, hyp othyroidism, chronic anemia, hyperlipidemia with a history of stroke transferred from [facility] [place] for evaluation of T11-T12 lesion noted on [...] Single Lumen 03/24/19 2143 Left Lateral Forearm pvth-jno-ccgjxw daniel ter system 20 gauge;1 1/4 in [...] - 99 mg/dL Final Comment: Performed by [facility] [address] [place] [address] 03/25/2019 06:52 107 (H) 65 - 99 mg/dL Final Comment: Performed by [facility] [address] [place] [address] 03/24/2019 20:11 112 (H) 65 - 99 mg/dL Final Comment: Performed by [facility] [address] [place] [address] 12/09/2018 18:05 113 (H) 70 - 109 [...] this chart may have been created with [employer] voice recognition software. Occasi onal wrong-word or sound-alike substitutions may have occurred due to the inherent mckeon itations of voice recognition software. Please read the chart carefully and recognize, using context, where these substitutions have occurred su, Randy Nunez MD - 0 03/25/2019 1:47 PM PDT [facility] INPATIENT ROUNDING NOTE Date of Service: 03/25/2019 Rounding Physician: Randy Corrigan MD Patient Name: Estefani Tilley : 1945 Medical Record: [id number] Hospital Summary: Estefani Tilley is a 73 y.o. female with a PMHx of ESRD, HTN, Dm type 2, hypothyroidism, HLd, CVA who is under the care of Dr Muñoz at [facility] who dialyzes MWF admitted with possible osteo disccitis t11/t12 ASSESSMENT AND PLAN 1. ESRD/HD dependent Access is LUE AVF working well No indications for HD today Usually dialyzes MWF at [facility] She is below her EDW [...] pt mostly lives at Yina's house outside [facility], [place], but does not like to be tied down because she enjoys attending [place] festivals and many events. She does atten d dialysis weekly. Pt has a vehicle and is very independent. ASSESSMENT/CHART REVIEW:73 yr old femalewith a history of ESRD on hemodialysis, hypertens ion, type 2 diabetes, hypothyroidism,chronic anemia,hyperlipidemia, hx of stroke [facility] noted on MRI concerning fo r osteomyelitis. D/C TRANSPORT: tbd BARRIERS TO D/C: none CONTACTS: Yina La Sister [phone] India Tilley Sister [phone] Carlos Gonzales M D - 03/25/2019 8:34 AM PDT Infectious Diseases Progress Note Pt. Name/Age/: Estefani Tilley 73 y.o. 1945 Med. Record Number: [id number] Date of admission: 03/24/2019 Patient admitted with [...] Electronically signed by: Carlos Jansen, 03/25/2019 8:34 [facility] Jose Gamez, Floral Merchandiser - 03/24/2019 10:46 PM PDTFormatting of this [...] Vancomycin Protocol Electronically signed by: Jose Menard, Floral Merchandiser 03/24/2019 22:46 Gladys Daugherty MSW - 9 [...] pt mostly lives at Yina's house outside [place], [place], but do es not like to be tied down because she enjoys attending [place] festivals and many events. She does attend dialysis weekly. Pt has a vehicle and is very independent. ASSESSMENT/CHART REVIEW:73 yr old female with a history of ESRD on hemodialysis, hypertensi on, type 2 diabetes, hypothyroidism, chronic anemia, hyperlipidemia, hx of stroke transferre d from [facility] for evaluation of T11-T12 lesion noted on MRI concerning for ost eomyelitis. D/C TRANSPORT: tbd BARRIERS TO D/C: none CONTACTS: Yina La Sister [phone] India Tilley Sister [phone] Katey Solis MD - 03/24/2019 3:53 PM PDTPatient seen and examined. Chart reviewed. Briefly, 73-year-old female with history of ESRD on hemodialysis, hypertension, type 2 diab etes, hypothyroidism, chronic anemia, hyperlipidemia with a history of stroke transferred [place] [facility] [place] [facility] [place] for evaluation of T11-T12 lesion noted on [...] not have any p raza, consider antidepressants. home weatherizing worker consulted for concerns for housing concerns [...] 1250 mg IV once given 03/23 @ 9449 at [facility]. 2. Target Trough: 15-20 mcg/ml [...] Procedure Component Value Units Date/Time Culture, Blood [[id number]] Collected: 03/23/192332 Order Status: Sent Lab Status: In process Updated: 03/23/192348 Specimen: Blood Culture, Blood [[id number]] Collected: 03/23/192254 Order Status: Sent Lab Status: [...] | [facility] | | | POC | [facility] [address], | | SACRED | | | | [place] [address] | | HEART | | | |Performed by [facility] [address], [place] [address] | | MEDICAL | | | | [...] | RIMAE | | | POC | [facility] [address], | | SACRED | | | | [place] | | HEART | | | |Performed by [facility] [address], [place] [address] | | MEDICAL | | | | [...] + | BETH [facility] | [address] | [place] [address] | | | [facility] [...] | | LABORATORY | | | | [facility] [address], | | [place]ERNER | | | | [place] [address] | | | | + + + + + + + + | Specimen | + + | Blood specimen | | (specimen) | + + + + + + + | Performing | Address | City/State/Zipcode | Phone Number | | Organization | | | | + + + + + | BETH LIZ | [address] | [place] [address] | | | [facility] | [...] ENCE | | | Immature | by [facility] [address], | K/uL | SACRED | | | Granulocyte | [place] [address] | | HEART | | | s |Performed by [facility] [address], [place] [address] | | MEDICA L | | | [...] + + | [facility] | [address] | [place] [address] | | | [facility] | [...] by | | | | | | [facility] [address], | | | | | | [place] [address] | | | | + + + + + + + + | Specimen | + + | Blood specimen | | (specimen) | + + + + + + + | Performing | Address | City/State/Zipcode | Phone Number | | Organization | | | | + + + + + | BETH LIZ | [address] | [place] [address] | | | [facility] | [...] | | | POC | Performed by [facility] [address] | | SACREVANS | | | | [place] | | HEART | | | | [address] | | MEDICAL | | | | [...] + | BETH LIZ | [address] | [place] [address] | | | [facility] | [...] | | | POC | Performed by [facility] [address] | | SACRED | [...] | [address] | [place] [address] | | | HEART [facility] | | | | [...] | | | POC | Performed by [facility] [address] | | SACRED | | | | [address] [place] | | HEART | | | | [address] | | MEDICAL | | | | [...] + | BETH LIZ | [address] | [place] [address] | | | [facility] | [...] | | | POC | Performed by [facility] [address] | | SACRED | [...] [address] | [place] [address] | | | HEART [facility] | | | | [...] PROVIDE NCE | | | | by [facility] [address], | | SACRED | | | | [place] [address] | | HEART | | | |Performed by [facility] [address], [place] [address] | | MEDICAL | | | | [...] + + | JIMRENUKA LIZ | [address] | [place] [address] | | | [facility] | [...] LUIS CE | | | | by [facility] [address], | | SACRED | | | | [place] [address] | | HEART | | | |Performed by [facility] [address], [place] [address] | | MEDICAL | | | | [...] [address] | [place] [address] | | | [facility] | [...] | | LABORATORY | | | | [facility] [address], | | CERNER | | | | [place] [address] | | | | + + + + + + + + | Specimen | + + | Blood specimen | | (specimen) | + + + + + + + | Performing | Address | City/State/Zipcode | Phone Number | | Organization | | | | + + + + + | BETH LIZ | [address] | [place] [address] | | | [facility] | [...] ENCE | | | Counted | by [facility] [address] [place] [address], | | SACRED | | | | [place] [address] | | HEART | | | |Performed by [facility] [address], [place] [address] | | MEDICA L | | | [...] + + | BETH LIZ | [address] | [place] [address] | | | [facility] | [...] | | | POC | Performed by [facility] [address] | | SACRED | | | | [address] [place], [place] | | HEART | | | | [address] | | MEDICAL | | | | [...] [address] | [place] [address] | | | [facility] | [...] | PROVIDENCE | | | POC | [facility] [address] [facility] [address], | | SACRED | | | | [place] [address] | | HEART | | | |Performed by [facility] [address] [place], [place] [address] | | MEDICAL | | | | [...] + | JIMRENUKA LIZ | [address] | [place] [address] | | | [facility] | [...] | | | POC | Performed by [facility] [address] | | SACRED | | | | [address] [place] | | HEART | | | | [address] | | MEDICAL | | | | [...] [address] | [place] [address] | | | [facility] | [...] AGUSTO | | | | [place] [address] | | HEART | | | |Performed by [facility] [address], [place] [address] | | MEDICAL | | | | [...] + + | BETH LIZ | [address] | [place] [address] | | | [facility]ENTER | [...] by | | | | | | [facility] [address], | | | | | | [place] [address] | | | | + + + + + + + + | Specimen | + + | Blood specimen | | (specimen) | + + + + + + + | Performing | Address | City/State/Zipcode | Phone Number | | Organization | | | | + + + + + | BETH LIZ | [address] | [place] [address] | | | [facility] | [...] ENCE | | | Counted | by [facility] [address], | | SACRED | | | | [place] [address] | | HEART | | | |Performed by [facility] [address], [place] [address] | | MEDICA L | | | [...] + | BETH LIZ | [address] [place] [address]. | [place] [address] | | | [facility] | [...] LUIS CE | | | | by [facility] [address], | | SACRED | | | | [place] [address] | | HEART | | | |Performed by [facility] [address], [place] [address] | | MEDICAL | | | | [...] SACRED | [address] | [place] [address] | | | [facility] [...] | | LABORATORY | | | | [facility] [address], | | [place] | | | | [place] [address] | | | | + + + + + + + + | Specimen | + + | Blood specimen | | (specimen) | + + + + + + + | Performing | Address | City/State/Zipcode | Phone Number | | Organization | | | | + + + + + | JIMJOSE ADora LIZ | [address] | [place] [address] | | | [facility] | [...] | | | POC | Performed by [facility] [address] | | SACRED | | | | [address], [place] | | HEART | | | | [address] | | MEDICAL | | | | [...] | [address] | [place] [address] | | | [facility] | [...] | signing radiologist was present for the paerl portions of the exam. | | | [...] | | | POC | Performed by [facility] [address] | | SACRED | | | | [address] [place] | | HEART | | | | [address] | | MEDICAL | | | | [...] + | JIMJOSE ADora LIZ | [address] | [place] [address] | | | [facility] | [...] | PROVIDENCE | | | POC | [facility] [address], | | SACRED | | | | [place] [address] | | HEART | | | |Performed by [facility] [address] [facility] [address], [place] [address] | | MEDICAL | | | | [...] SACRED | [address] | [place] [address] | | | HEART [facility] | | | | [...] | | LABORATORY | | | | [facility] [address], | | [place] | | | | [place] [address] | | | | + + + + + + + + | Specimen | + + | Blood specimen | | (specimen) | + + + + + + + | Performing | Address | City/State/Zipcode | Phone Number | | Organization | | | | + + + + + | BETH [facility] | [address] | [place] [address] | | | [facility] | [...] PROVIDE NCE | | | | by [facility] [address], | | SACRED | | | | [place] [address] | | HEART | | | |Performed by [facility] [address], [place] [address] | | MEDICAL | | | | [...] BETH LIZ | [address] [facility] [address] | [place] [address] | | | [facility] | [...] | | | POC | Performed by [facility] [address] | | SACRED | [...] | [place] | | | HEART [facility] | | | | [...] | | | POC | Performed by [facility] [address] | | SACRED | | | | [address] [place] | | HEART | | | | [address] | | MEDICAL | | | | [...] BETH LIZ | [address] [facility] [address] | [place] [address] | | | [facility] | [...] | PROVIDENCE | | | POC | [facility] [address], | | SACRED | | | | [place] [address] | | HEART | | | |Performed by [facility] [address], [place] [address] | | MEDICAL | | | | [...] + + | [facility] | [address] | [place], [place] | | | [facility] [...] | PROVIDENCE | | | POC | [facility] [address], | | SACRED | | | | [place] | | HEART | | | |Performed by [facility] [address], [place] | | MEDICAL | | | [...] + | BETH LIZ | [address] | [place] [address] | | | [facility] | [...] by | | | | | | [facility] [address], | | | | | | [place] [address] | | | | + + + + + + + + | Specimen | + + | Blood specimen | | (specimen) | + + + + + + + | Performing | Address | City/State/Zipcode | Phone Number | | Organization | | | | + + + + + | BETH [facility]Z | [address] | [place] [address] | | | [facility] | [...] | | | POC | Performed by [facility] [address] | | SACRED | [...] [address] | [place] [address] | | | HEART [facility] | | | | [...] | | | POC | Performed by [facility] [address] | | SACRED | | | | [address] [place] | | HEART | | | | [address] | | MEDICAL | | | | [...] + | BETH LIZ | [address] | [place] [address] | | | [facility] | [...] | | | POC | Performed by [facility] [address] | | SACRED | [...] [address] | [place] [address] | | | HEART [facility] | | | | [...] PROVIDENCE | | | | Performed by [facility] [address] | | SACRED | | | | [address] [place], [place] | | HEART | | | | [address] | | MEDICAL | | | | [...] + | BETH LIZ | [address] | [place] [address] | | | [facility] | [...] | | | POC | Performed by [facility] [address] | | SACRED | | | | [address], [place], [place] | | HEART | | | | [address] | | MEDICAL | | | | [...] SACRED | [address] | [place] [address] | | | [facility]ICAL [facility]ENTER | [...] by | | | | | | [facility] [address], | | | | | | [place] [address] | | | | + + + + + + + + | Specimen | + + | Blood specimen | | (specimen) | + + + + + + + | Performing | Address | City/State/Zipcode | Phone Number | | Organization | | | | + + + + + | BETH LIZ | [address] | [place] [address] | | | [facility] | [...] | | LABORATORY | | | | [facility] [address], | | JESI | | | | [place] [address] | | | | + + + + + + + + | Specimen | + + | Blood specimen | | (specimen) | + + + + + + + | Performing | Address | City/State/Zipcode | Phone Number | | Organization | | | | + + + + + | [facility] | [address] | [place] [address] | | | [facility] | | | | | LABORATORY CERMICA [...] PROVIDE NCE | | | | by [facility] [address], | | SACRED | | | | [place] | | HEART | | | |Performed by [facility] [address] [facility] [address], [place], [place] | | MEDICAL | | | [...] + + | [facility] | [address] | [place], [place] | | | HE[facility]ICAL CENTER [...] CE | | | B-12 | by [facility] [address], | | SACRED | | | | [place] [address] | | HEART | | | |Performed by [facility] [address], [place] [address] | | MEDICAL | | | | [...] + + | [facility] | [address] | [place] [address] | | | [facility] | [...] by | | | | | | [facility] [address], | | | | | | [place] [address] | | | | + + + + + + + + | Specimen | + + | Blood specimen | | (specimen) | + + + + + + + | Performing | Address | City/State/Zipcode | Phone Number | | Organization | | | | + + + + + | BETH [facility] | [address] | [place] [address] | | | [facility] | [...] | | | POC | Performed by [facility] [address] | | SACRED | | | | [address] [place] | | HEART | | | | [address] | | MEDICAL | | | | [...] [address] | [place] [address] | | | [facility] | [...] | | | POC | Performed by [facility] [address] | | SACRED | | | | [address], [place] | | HEART | | | | [address] | | MEDICAL | | | | [...] + | BETH LIZ | [address] | [place] [address] | | | [facility] | [...] | | | POC | Performed by [facility] [address] | | SACRED | | | | [address] [place] | | HEART | | | | [address] | | MEDICAL | | | | [...] + + | BETH LIZ | [address] | [place] [address] | | | [facility] | [...] PROVIDE NCE | | | | by [facility] [address], | | SACRED | | | | [place] [address] | | HEART | | | |Performed by [facility] [address], [place] [address] | | MEDICAL | | | | [...] + + | JIMRENUKA AGUSTO | [address] | [place] [address] | | | [facility] | [...] LUIS CE | | | | by [facility] [address], | | SACRED | | | | [place], [place] | | HEART | | | |Performed by [facility] [address], [place] | | MEDICAL | | | [...] SACREVANS | [address] | [place], [place] | | | HEART [facility] | | | | [...] | | LABORATORY | | | | [facility] [address], | | JESI | | | | [place] [address] | | | | + + + + + + + + | Specimen | + + | Blood specimen | | (specimen) | + + + + + + + | Performing | Address | City/State/Zipcode | Phone Number | | Organization | | | | + + + + + | BETH [facility] | [address] | [place] [address] | | | [facility] | [...] | | | POC | Performed by [facility] [address] | | SACRED | | | | [address] [place] | | HEART | | | | [address] | | MEDICAL | | | | [...] + | BETH LIZ | [address] | [place] [address] | | | [facility] | [...] | | | POC | Performed by [facility] [address] | | SACRED | [...] [address] | [place] [address] | | | HEART [facility] | | | | [...] | SACRED | | | Total | [place] [address] [address] | | HEART | | | | [address] [place], [place] | | MEDICAL | | | | [phone] | | CENTER | | | | Lauro HOLDEN Ph:[phone] | | LABORATORY | | | | [...] + | JIMJOSE ADora LIZ | [address] | [place] [address] | | | [facility] | [...] | SACRED | | | | by [facility] [address], | | HEART | | | | [place] [address] | | MEDICAL | | | | [...] [address] | [place] [address] | | | [facility]ICAL [facility]ENTER | [...] | SACRED | | | | by [facility] [address], | | HEART | | | | [place] | | MEDICAL | | | [...] SACRED | [address] | [place], [place] | | | [facility] [...] | MEDICAL | | | | by [facility] [address], | | [place] | | | | [place] [address] | | LABORATORY | | | |Performed by [facility] [address], [place] [address] | | CERNER | | | | [...] + + | BETH LIZ | [address] | [place] [address] | | | [facility] | [...] (H)Comment: | 65 - 99 mg/dL | PROVID[facility]E AE | | | POC | Performed by [facility] [address] | | SACRED | | | | [address], [place] | | HEART | | | | [address] | | MEDICAL | | | | [...] ADora DENV[place]ANS | [address] [facility] [address] | [place] [address] | | | [facility] | [...] | | | POC | Performed by [facility] [address] | | SACRED | | | | [address] [place], [place] | | HEART | | | | [id number] | | MEDICAL | | | | [...] + + | [facility] | [address] | [place] [address] | | | [facility] | [...] CENTER | | | | 3.5Performed by [facility] [address] | | LABORATORY | | | | [address] [place] | | [place] | | | | [id number] | | | | + + + + + + + + | Specimen | + + | Blood specimen | | (specimen) | + + + + + + + | Performing | Address | City/State/Zipcode | Phone Number | | Organization | | | | + + + + + | [facility] | [address] | [place] [address] | | | [facility] | [...] | | | Immature | Performed by [facility] [address] | K/uL | [facility] | | | Granulocyte | [address] [place] | | HEART | | | s | [id number] | | MEDICAL | | | | [...] ADora [facility] | [address] | [place] [address] | | | [facility] | [...] | | LABORATORY | | | | [facility] [address], | | [place] | | | | [place] [address] | | | | + + + + + + + + | Specimen | + + | Blood specimen | | (specimen) | + + + + + + + | Performing | Address | City/State/[facility] | Phone Number | | Organization | | | | + + + + + | [facility] | [address] | [place] [address] | | | [facility] | | | | | LABORATORY [place] [...] | First dose on [facility] 03/30/19 at 1130 | | AM PDT [...] scheduled: AC, NPO, Daytime | | | [id number] Use NIGHT DOSE for | | | doses scheduled: HS, 3AM, | | | Nighttime [id number] If the BG is | | | [...]
--- OUTSIDE RECORDS SUMMARY | ~2019-08-24 | XMS | Encounter Summary ---
Demographics + + + | Address | [address] | | | [place] [address] | + + + | Home Phone [...] Author | [facility] | | | and [place] | + + + | Organization | [facility] | | | and [place] | + + + | Address | Unknown | + + + | Phone | Unavailable | + + + Support + + + + + | Name | Relationship | Address | Phone | + + + + + | India Tilley | ECON | [id number] | | | | | [place], [place] | | | | | [address] | | + + + + + | Yina La | ECON | Unknown | | + + + + + | Yina Peterson | ECON | Unknown | | + + + + + | Leatha Casillas | ECON | Unknown | | + + + + + Care Team Providers + +------+ + | Care Materials Planner/Production Planner Name | Role | Phone | [...] W/ | | | | [address] | [facility] | [place] | | 02/05/ | | [place], [place] | [place] [address] | | | 2017 | | [address] | [phone] | | | | | [phone] | | | +--------+---------+ + + + [...] Office Phone Number to Contact Dr Navarro: [phone] Navarro's Office to schedule a follow up visit as needed - you will follow up with Dr Stephenson and at the dialysis center. Our office is located in the [facility] next door to Urgent Care. Other [...] Wednesday 9:00-2:00PM. Call the General Surgery Office [phone] for the following: Persistent vomiting Diarrhea lasting [...] as possible. Limit sports and strenuous activities [id number]. Shower as usual. Gently wash around your [...] ST. | [address] | [place] | [phone] | | [facility] | | [address] | | | - LABORATORY | | [...] + | [facility] | [address] | [place] | [phone] | | [facility] | | [address] | | | - LABORATORY | | [...] 3.57 (H) | 0.60 - 1.30 | [place] | | | | | mg/dL | [facility] | | | | | | MEDICAL | | | | | | CENTER - | | | | | | LABORATORY | | + + + + + + | eGFR if not | 13 (L)Comment: | >=60 | [place] | | | | GLOMERULAR FILTRATION | mL/min/1.73m2 | [facility] | | | [place] | RATE,ESTIMATED | | MEDICAL | | | | mL/min/1.84q7Ppdi than | | CENTER - | | [...] | [facility] | [address] | [place] | [phone] | | [facility] | | [address] | | | - LABORATORY | | [...] [address] | [place] | [phone] | | [facility] | | [address] | | | - LABORATORY | | [...] agent. | | | Ondansetron IV is juke box mechanic | | | out. If patient cannot [...]
--- OUTSIDE RECORDS SUMMARY | ~2019-08-24 | XMS | Encounter Summary ---
Demographics + + + | Address | [address] | | | [place] [address] | + + + | Home Phone [...] Author | [facility] | | | and [place] | + + + | Organization | [facility] | | | and [place] | + + + | Address | Unknown | + + + | Phone | Unavailable | + + + Support + + + + + | Name | Relationship | Address | Phone | + + + + + | India Tilley | ECON | [phone] | | | | | [place], [place] | | | | | [address] | | + + + + + | Yina La | ECON | Unknown | | + + + + + | Ynia Peterson | ECON | Unknown | | + + + + + | Leatha Casillas | ECON | Unknown | | + + + + + Care Team Providers + +------+ + | Care Distributed Energy Systems Consultant Name | Role | Phone | + +------+ + PCP | Unavailable | + +------+ + Encounter Details +--------+ + + + + | Date | Type | Department | Care Team | Description | +--------+ + + + + | 04/10/ | Hospital | [facility] | Patricia, | | | 2006 - | Encounter | [facility] | Venkatesh Forte MD [address] | | | | [place] [address] | [facility] | | | 04/12/ | | [place], [place] | [place] [address] | | | 2006 | | [address] | [phone] | | | | | [phone] | | | +--------+ + + + [...]
--- OUTSIDE RECORDS SUMMARY | ~2019-08-24 | XMS | Encounter Summary ---
Demographics + + + | Address | [address] | | | [place] [address] | + + + | Home Phone [...] + | Author | [facility] | | | and Kamaljitana | + + + | Organization | [facility] | | | and [place] | + + + | Address | Unknown | + + + | Phone | Unavailable | + + + Support + + + + + | Name | Relationship | Address | Phone | + + + + + | India Tilley | ECON | [address] | | | | | [place], [place] | | | | | [address] | | + + + + + | Yina La | ECON | Unknown | | + + + + + | Yina Peterson | ECON | Unknown | | + + + + + | Leatha Casillas | ECON | Unknown | | + + + + + Care Team Providers + +------+ + | Care Machine Zipper Trimmer Name | Role | Phone | [...] | (Fax) | | | | | [phone] | | | | | | [phone] | | | +--------+---------+ + + + [...] completion of IV abx Follow Up Appointments: [address] [address] [facility] [address] [facility] [facility] [place] [id number] [facility] [address] [phone] Discharge Disposition: Home with Home Health Consultants This Admission: ID, Nephrology Hospital Course: 73-year-old female with history of ESRD on hemodialysis, hypertension, type 2 diabetes, hyp othyroidism, chronic anemia, hyperlipidemia with a history of stroke transferred from [facility] for evaluation of T11-T12 lesion noted on [...] had planned to go to SNF ([facility] in [place], [place] - of which has accepted her [...] dialysis days after dialysis Osteomyelitis/Discitis of T11, [id number] -MRI spine 03/23/19: "mild paravertebral soft tissue [...] dialysis patient - has OP clinic in [place] already Macrocytic anemia likely secondary to-likely anemia [...] Value Units Date/Time Culture, Aerobic + Anaerobic [[id number]] Collected: 03/24/19 1514 Order Status: Completed Lab Status: Final result Updated: 03/29/1918 Specimen: Body Fluid from Vertebrae, Thoracic FINAL REPORT -- No Growth No anaerobes isolated Gram Stain Few Neutrophils No squamous epithelial cells seen No organisms seen Comment: Performed by [facility] [address] [place] [address] Gram Stain [[id number]] Collected: 03/24/19 151 Order Status: Canceled Lab Status: No result Updated: 03/24/191514 Specimen: Body Fluid from Vertebrae, Thoracic Culture, AFB Smear [[id number]] Collected: 03/24/191513 Order Status: Completed Lab Status: Preliminary result Updated: 03/25/19 1054 Specimen: Body Fluid from Vertebrae, Thoracic AFB Smear Result No Acid Fast Bacilli Seen Comment: Performed by [facility] [address] [place] [address] Culture, Fungus, Smear [[id number]] Collected: 03/24/19 151 Order Status: Completed Lab Status: Preliminary result Updated: 03/25/19 1039 Specimen: Body Fluid from Vertebrae, Thoracic CALCOFLUOR No fungal elements seen Comment: Performed by [facility] [address] [place] [address] Culture, Blood [[id number]] Collected: 03/23/19 2333 Order Status: Completed Lab Status: Final result Updated: 03/28/19 2352 Specimen: Blood Culture No growth after 5 days incubation. Culture, Blood [[id number]] Collected: 03/23/19 2255 Order Status: Completed Lab [...] this chart may have been created with [employer] voice recognition software. Occasi onal wrong-word or [...] 03/31/2019 5:42 PM PDTPatient left with family, [place] supplies and i nstructions received before discharge and RX's filled at outpt pharmacy. VSS, ambulating wit h SBA, A&O x4, accepting of discharge. Dialysis completed this AM. Pain controlled with q4 o xy, LD 1400. Home health will f/u tomorrow. AVS reviewed and sent with patient, verbalized u nderstanding. Merry Hess MSW - 03/31/2019 11:05 AM PDTSOCIAL WORK PLAN: Home with [facility] NEXT STEPS: 1. Pt to follow up with [facility] 2. [facility] to follow up with pt at dc INTERVENTION: SW spoke with [facility], pt has a $2.50 out of pocket cost weekly, pt is agreeable to pay for this. Therefore pt will dc today with [facility]. SW provided [place] with hard script for IV abx. SW faxed over HH order to [facility], SW faxed over IV vanco script to [facility]. [facility] notified of pt's dc home. notified. [facility]ie to meet with pt later this afternoon for teach. SW provided pt with 3 gas cards to assist with transportation. No further dc needs identified. SW received call from [facility] HD clinic that they cannot provide IV Vanco as Vanco h as not been consigned by Desktop Support Manager that has privileges in [place]. IV Vanco will now be done b y [place], [address] [place] faxed over hard script to Candie. They will have both IV Abx ready and will teach pt shortly. No further dc needs identified. CONTACTS: Yina La: sister India Tilley: sister [place] Transportation: [place] Medicaid Transportation fax: [phone] [facility]: [phone] fax: [phone] [facility] [phone] [facility]: [phone] [facility]: [phone] [facility] FAX: [phone] aray Michelle Taylor - 03/31/2019 10:12 AM PDT Patient: Estefani Tilley Date of : 1945 Admit Date: 03/24/2019 Date of Service: 03/31/2019 PCP: Francisca Womack PA-C Hospital Day: Hospital Day: 8 Hospital Course: 73-year-old female with history of ESRD on hemodialysis, hypertension, type 2 diabetes, hyp othyroidism, chronic anemia, hyperlipidemia with a history of stroke transferred from [facility] for evaluation of T11-T12 lesion noted on [...] to go to SNF ([facility] in [place], [place] - of which has accepted her [...] dialysis patient - has OP clinic in [place] already Macrocytic anemia likely secondary to-likely anemia [...] hoping to arrange home IV antibiotics through [place]. Awaiting to see if insurance will cover [...] - 99 mg/dL Final Comment: Performed by [facility] [address] [facility] [place] [address] 03/30/2019 21:14 200 (H) 65 - 99 mg/dL Final Comment: Performed by [facility] [address] [facility] [place] [address] 03/30/2019 17:46 111 (H) 65 - 99 mg/dL Final Comment: Performed by [facility] [address] [facility] [place] [address] 12/09/2018 18:05 113 (H) 70 - 109 [...] Tilley 73 y.o. 1945 Med. Record Number: [id number] Date of admission: 03/24/2019 Patient admitted with [...] Electronically signed by: Jesus Whitney, 03/31/2019 8:26 [facility] Robb Phillips, PharmD - 03/31/2019 7:25 AM PDTFormatting of this note might be different from the [facility] nal. Pharmacy Progress Note VANCOMYCIN [...] Nunez MD - 03/30/2019 9:45 PM PDT [facility]IENT ROUNDING NOTE Date of Service: 03/30/2019 Rounding Physician: Randy Corrigan MD Patient Name: Estefani Tilley : 1945 Medical Record: [id number] Hospital Summary: Estefani Tilley is a 73 y.o. female with a PMHx of ESRD, HTN, Dm type 2, hypothyroidism, HLd, CVA who is under the care of Dr Muñoz at [facility] who dialyzes MWF admitted with [...] Corrigan MD, 03/30/2019, 21:45 ettler, Nan Tony, SAILING OFFICER - 03/30/2019 2:34 PM PDT SOCIAL WORK D/C PLAN:DC home with [facility] providing IV-ABX and [facility] providing picc care and lab draws vs [facility] NEXT STEPS: -SW will need to follow up with [facility] regarding providing IV-ABX to pt. -SW will need to follow up with [facility] regarding providing picc care and lab draws. -SW will need to follow up with [facility] regarding having pt receive vanco do se while at dialysis center if pt is to go home with IV-ABX -SW will need to follow up with [facility] if pt is unable to go home with IV-ABX rega ridng pt's DC -SW will need to fax SNF orders, scripts and PASRR to [facility] if pt is unable to go home -SW will need to provide gas cards to pt's family for transportation home. INTERVENTION:ROBIN spoke with pt regarding acceptance to [facility]. Pt is now wanting to go home with IV-ABX. ROBIN spoke with [facility]. They go out to [place], [place] and have openings for nursing care. Referral faxed to [facility]. Pt is amenable to using [facility] for IV-ABX. SW spoke with CANDIE liasion who will run pt's be nefits to see if she can DC home with IV-ABX. Pt states that [facility] can provide teach to her son to help administer IV-ABX. SW left message for [facility] to see if they can provide vanco dose to pt at [facility] on Wednesday, Wednesday and Wednesday if pt is able to go home. Pt states that she does dialysis on Wednesday, Wednesday and Wednesday from 12:00-4:00. SW received phone call from [facility]. They have accepted pt for admission if [...] if pt is going to go to [facility] SNF. ASSESSMENT/CHART REVIEW:73 yr old femalewith a history of ESRD on hemodialysis, hypertens ion, type 2 diabetes, hypothyroidism,chronic anemia,hyperlipidemia, hx of stroke [facility] of T[facility]-T12 lesion noted on MRI concerning fo r osteomyelitis. SW met with pt's sister, Yina, and her cousin, Keri, who were waiting in pt's room while s he was in dialysis. SW will need to follow up with pt re: d/c planning. Pt's sister and cousin related that pt mostly lives at Yina's house outside [place], [place], but does not like to be tied down because she enjoys attending [place] festivals and many events. She does at [facility] dialysis weekly. Pt has a vehicle and is very independent. D/C TRANSPORT:Pt can be transported home or to [facility] via family in a private car. They will need gas cards to help pay for transportation. BARRIERS TO D/C:none CONTACTS: Yina La: sister India Tilley: sister [place] Transportation: [place] Medicaid Transportation fax: [phone] [facility]: [phone] fax: [phone] [facility] [phone] [facility]: [phone] [facility]: [phone] [facility] FAX: [phone] Nan Cheney MSW - 03/30/2019 12:57 PM PDTSOCIAL WORK D/C PLAN:SNF: [facility] NEXT STEPS:Await bed availability INTERVENTION: ROBIN called and left message for Roneugene at [facility] regarding if they are willing to accept pt and to discuss transportation to and from dialysis. SW also called and left message for [place] Medicaid transportation regarding if they can transp ort pt to and from dialysis upon DC. Pt states that she goes to [facility] dialys is in [place], [place] on Wed, Wed, and Fridays from 12:00-4:00 pm. SW left message with [facility] regarding if there was any way that they may also be able to help with transportation to and from dialysis while pt is in rehab and to ensure that pt still has her chair time scheduled. [facility] is only open M on, Wednesday and Wednesday. ASSESSMENT/CHART REVIEW:73 yr old femalewith a history of ESRD on hemodialysis, hypertens ion, type 2 diabetes, hypothyroidism,chronic anemia,hyperlipidemia, hx of stroke [facility] noted on MRI concerning fo r osteomyelitis. ROBIN met with pt's sister, Yina, and her cousin, Keri, who were waiting in pt's room while s he was in dialysis. ROBIN will need to follow up with pt re: d/c planning. Pt's sister and cousin related that pt mostly lives at Yina's house outside [place], [place], but does not like to be tied down because she enjoys attending [place] festivals and many events. She does at [facility] weekly. Pt has a vehicle and is very independent. D/C TRANSPORT:tbd BARRIERS TO D/C:none CONTACTS: Yina La: sister India Tilley: sister [place] Transportation[place] Transportation fax: [phone] [facility]: [phone] fax: [phone] [facility] [phone] [facility]: [phone] signed by JENNIFER Xavier at 03/30 1:09 [...] with a history of stroke transferred from [facility] for evaluation of T11-T12 lesion noted [...] dialysis patient - has OP clinic in [place] already ---> will need SW to help [...] SNF - awaiting to hear back from [facility], in [place], [place] regarding possible acceptance there. Medically ready [...] Single Lumen 03/24/19 2143 Left Lateral Forearm elwi-hqh-xcexwx daniel ter system 20 gauge;1 1/4 in [...] - 99 mg/dL Final Comment: Performed by [facility] [address] [place] [address] 03/29/2019 21:09 157 (H) 65 - 99 mg/dL Final Comment: Performed by [facility] [address] [place] [address] 03/29/2019 18:50 91 65 - 99 mg/dL Final Comment: Performed by [facility] [address] [place] [address] 12/09/2018 18:05 113 (H) 70 - 109 [...] this chart may have been created with [employer] voice recognition software. Occasi onal wrong-word or sound-alike substitutions may have occurred due to the inherent mckeon itations of voice recognition software. Please read the chart carefully and recognize, using context, where these substitutions have occurred esus Whitney MD - 03/30/2019 7:15 AM PDT . Infectious Diseases Progress Note Pt. Name/Age/: Estefani Tilley 73 y.o. 1945 Med. Record Number: [id number] Date of admission: 03/24/2019 Patient admitted with [...] Requires optimal control Electronically signed by: Jesus Whiteny, 03/30/2019 7:15 [facility] Mary Wade RN - 03/30/2019 6:16 AM [...] intention has depression wishful of Monitoring Requirements [facility] Suicide Policy [facility] Suicide Risk/Telesitter Screening Utilizing this rating [...] 03/29/2019 4:18 PM PDTSOCIAL WORK D/C PLAN:SNF: [facility] NEXT STEPS:Await bed availability INTERVENTION: SW called and spoke with admissions person at [facility], they are still discussing pt's case. [...] anemia,hyperlipidemia, hx of stroke [facility] lesion noted on MRI concerning fo r osteomyelitis. SW met with pt's sister, Yina, and her cousin, Keri, who were waiting in pt's room while s he was in dialysis. SW will need to follow up with pt re: d/c planning. Pt's sister and cousin related that pt mostly lives at Yina's house outside [place], [place], but does not like to be tied down because she enjoys attending [place] festivals and many events. She does at [facility] weekly. Pt has a vehicle and is very independent. D/C TRANSPORT:tbd BARRIERS TO D/C:none CONTACTS: Yina La: sister India Tilley: sister [place] Medicaid Transportation: [facility]: [phone] fax: [phone] [facility] [phone] signed by JENNIFER Contreras at 03/29/2019 4:20 PM Randy Yu MD - 03/29/2019 12:32 PM PDT [facility] INPATIENT ROUNDING NOTE Date of Service: 03/29/2019 Rounding Physician: Randy Corrigan MD Patient Name: Estefani Tilley : 1945 Medical Record: [id number] Hospital Summary: Estefani Tilley is a 73 y.o. female with a PMHx of ESRD, HTN, Dm type 2, hypothyroidism, HLd, CVA who is under the care of Dr Muñoz at [facility] who dialyzes MWF admitted with [...] with a history of stroke transferred from [facility] for evaluation of T11-T12 lesion noted on [...] awaiting to hear from [facility], in [place] regarding possible acceptance. May be able [...] dialysis patient - has OP clinic in [place] already ---> will need SW to help [...] SNF - awaiting to hear back from [facility], in [place], [place] regarding possible acceptance there. Could possibly [...] Single Lumen 03/24/19 2143 Left Lateral Forearm whhv-kvt-mnxmur daniel ter system 20 gauge;1 1/4 in [...] - 99 mg/dL Final Comment: Performed by [facility] [address] [place] [address] 03/28/2019 21:06 144 (H) 65 - 99 mg/dL Final Comment: Performed by [facility] [address] [place] [address] 03/28/2019 11:22 119 (H) 65 - 99 mg/dL Final Comment: Performed by [facility] [address] [place] [address] 12/09/2018 18:05 113 (H) 70 - 109 [...] this chart may have been created with [employer] voice recognition software. Occasi onal wrong-word or [...] Tilley 73 y.o. 1945 Med. Record Number: [id number] Date of admission: 03/24/2019 Patient admitted with [...] Electronically signed by: Jesus Whitney, 03/29/2019 7:35 [facility] zech, Carolina Restrepo RN - 03/28/2019 7:08 PM [id number] - Report called to Sanjuanita GONZALEZ. Pt's belongings . I pad and I phone w/ chargers as well as pt's purse, and shoes, and shirt and pants all sent with her to [address] [place] [address]. Pt had been sitting up eating dinner. [...] with a history of stroke transferred from [facility] for evaluation of T11-T12 lesion noted on [...] Single Lumen 03/24/19 2143 Left Lateral Forearm dyyg-hzh-sblkpv daniel ter system 20 gauge;1 1/4 in [...] - 99 mg/dL Final Comment: Performed by [facility] [address] [place] [id number] 03/28/2019 07:09 75 65 - 99 mg/dL Final Comment: Performed by [facility] [address] [place] [address] 03/27/2019 20:38 109 (H) 65 - 99 mg/dL Final Comment: Performed by [facility] [address] [place] [address] 12/09/2018 18:05 113 (H) 70 - 109 [...] this chart may have been created with [employer] voice recognition software. Occasi onal wrong-word or sound-alike substitutions may have occurred due to the inherent mckeon itations of voice recognition software. Please read the chart carefully and recognize, using context, where these substitutions have occurred Cordell Mcgarry, [facility] - 03/28/2019 2:57 PM PDTSOCIAL WORK D/C PLAN: SNF: [facility] NEXT STEPS: Await bed availability INTERVENTION: On-going dc planning. Rec'd update from [facility]. They confirm they have r ec'd clinical notes and are currently reviewing. SW will follow. ASSESSMENT/CHART REVIEW:73 yr old femalewith a history of ESRD on hemodialysis, hypertens ion, type 2 diabetes, hypothyroidism,chronic anemia,hyperlipidemia, hx of stroke [facility] of T[facility]-T12 lesion noted on MRI concerning fo r osteomyelitis. SW met with pt's sister, Yina, and her cousin, Keri, who were waiting in pt's room while s he was in dialysis. SW will need to follow up with pt re: d/c planning. Pt's sister and co usin related that pt mostly lives at Yina's house outside [place], [place], but does not like to be tied down because she enjoys attending [place] festivals and many events. She does atten d dialysis weekly. Pt has a vehicle and is very independent. D/C TRANSPORT: tbd BARRIERS TO D/C: none CONTACTS: Yina La: sister India Tilley: sister [facility]: [phone] fax: [phone] [facility] [phone] illum, Mario Alberto morales MD - 03/28/2019 7:34 AM PDTFormatting of this note might be different from the maynor rollins Infectious Diseases Progress Note Pt. Name/Age/: Estefani Jimenez Jarek 73 y.o. 1945 Med. Record Number: [id number] Date of admission: 03/24/2019 Patient admitted with [...] Electronically signed by: Carlos Jansen 03/28/2019 7:34 [facility] Katey Solis MD - 03/27/2019 8:58 PM PDT Patient: Estefani Tilley Date of : 1945 Admit Date: 03/24/2019 Date of Service: 03/27/2019 PCP: Francisca Womack PA-C Hospital Day: Hospital Day: 4 Hospital Course: 73-year-old female with history of ESRD on hemodialysis, hypertension, type 2 diabetes, hyp othyroidism, chronic anemia, hyperlipidemia with a history of stroke transferred from [facility] for evaluation of T11-T12 lesion noted on MRI concerning for osteomyeliti s. Infectious disease consulted. Status post aspiration from her thoracic spine, Gram stain negative, cultures pending. Rosemary ent started on empiric vancomycin and cefepime. Will need 6 weeks of IV antibiotics. 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 Nephrology following for maintenance hemodialysis. 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 Pain management -trial of [...] Single Lumen 03/24/19 2143 Left Lateral Forearm rhtr-adx-gdspqh daniel ter system 20 gauge;1 1/4 in [...] - 99 mg/dL Final Comment: Performed by [facility] [address] [place] [address] 03/27/2019 13:58 82 65 - 99 mg/dL Final Comment: Performed by [facility] [address] [place] [address] 03/27/2019 06:39 83 65 - 99 mg/dL Final Comment: Performed by [facility] [address] [place] [address] 12/09/2018 18:05 113 (H) 70 - 109 [...] this chart may have been created with [employer] voice recognition software. Occasi onal wrong-word or sound-alike substitutions may have occurred due to the inherent mckeon itations of voice recognition software. Please read the chart carefully and recognize, using context, where these substitutions have occurred arlin Diaz, [facility] - 03/27/2019 3:17 PM PDTSOCIAL WORK D/C PLAN: SNF: [facility] NEXT STEPS: Await bed availability INTERVENTION: Rec'd call from Emili at [facility]. She states the contracted f acility near pt's home is [facility]. Spoke with pt and with sister India. Referral and (-) Pasrr sent to [facility]. Copy of Pasrr placed in light chart with request to file into jos rds. SW will follow. ASSESSMENT/CHART REVIEW:73 yr old femalewith a history of ESRD on hemodialysis, hypertens ion, type 2 diabetes, hypothyroidism,chronic anemia,hyperlipidemia, hx of stroke [facility] lesion [...] be tied down because she enjoys attending [place] festivals and many events. She does atten d dialysis weekly. Pt has a vehicle and is very independent. D/C TRANSPORT: tbd BARRIERS TO D/C: none CONTACTS: Yina La: sister India Tilley: sister [facility]: [phone] fax: [phone] [facility] [phone] Gregg Mcgarry [facility] - 03/27/2019 2:17 PM PDTFormatting of this note might be different from jerald more. SOCIAL WORK D/C PLAN: SNF NEXT STEPS: SW to follow up with pt regarding SNF preference INTERVENTION: On-going dc planning, chart reviewed and met with pt. Discussed need of senior living IV abx, Discussed options. Provided list of [...] be tied down because she enjoys attending [place] festivals and many events. She does atten d dialysis weekly. Pt has a vehicle and is very independent. ASSESSMENT/CHART REVIEW:73 yr old femalewith a history of ESRD on hemodialysis, hypertens ion, type 2 diabetes, hypothyroidism,chronic anemia,hyperlipidemia, hx of stroke [facility]12 lesion noted on MRI concerning fo r osteomyelitis. D/C TRANSPORT: tbd BARRIERS TO D/C: none CONTACTS: Yina La Sister [phone] India Tilley Sister [phone] Chichi, Irish sexton, Mold Unloader - 03/27/2019 1:33 PM PDTFormatting of this [...] Vancomycin Protocol Electronically signed by: Aimee Carroll, Mold Unloader 03/27/2019 13:33Electronically si gned by Ray Joel, PharmD at 03/27/2019 2:04 PM PDT Associated attestation - Ray Joel PharmD - 03/27/2019 2:04 PM PDTI reviewed and agr ee with the assessment and plan. Ray Joel, PharmDeepa 03/27/2019 14:04 Randy Corrigan MD - 03/27/2019 10:52 AM PDT [facility] INPATIENT ROUNDING NOTE Date of Service: 03/27/2019 Rounding Physician: Randy Corrigan MD Patient Name: Estefani Tilley : 1945 Medical Record: [id number] Hospital Summary: Estefani Tilley is a 73 y.o. female with a PMHx of ESRD, HTN, Dm type 2, hypothyroidism, HLd, CVA who is under the care of Dr Muñoz at [facility] who dialyzes MWF admitted with [...] Jarek 73 y.o. 1945 Med. Record Number: [id number] Date of admission: 03/24/2019 Patient admitted with [...] Electronically signed by: Carlos Jansen, 03/27/2019 7:10 [facility] Katey Solis MD - 03/26/2019 5:40 PM PDT Patient: Estefani Tilley Date of : 1945 Admit Date: 03/24/2019 Date of Service: 03/26/2019 PCP: Francisca Womack PA-C Hospital Day: Hospital Day: 3 Hospital Course: 73-year-old female with history of ESRD on hemodialysis, hypertension, type 2 diabetes, hyp othyroidism, chronic anemia, hyperlipidemia with a history of stroke transferred from [facility] [place] for evaluation of T11-T12 lesion noted on [...] Single Lumen 03/24/19 2143 Left Lateral Forearm cwhn-psi-rwouet daniel ter system 20 gauge;1 1/4 in [...] - 99 mg/dL Final Comment: Performed by [facility] [address] [place] [id number] 03/26/2019 06:49 116 (H) 65 - 99 mg/dL Final Comment: Performed by [facility] [address] [place] [id number] 03/25/2019 20:37 110 (H) 65 - 99 mg/dL Final Comment: Performed by [facility] [address] [place] [id number] 12/09/2018 18:05 113 (H) 70 - 109 [...] this chart may have been created with [employer] voice recognition software. Occasi onal wrong-word or sound-alike substitutions may have occurred due to the inherent mckeon itations of voice recognition software. Please read the chart carefully and recognize, using context, where these substitutions have occurred Jose Gamez, Pharmacy R esident - 03/26/2019 10:52 AM PDTFormatting of this note might be different from [facility] Progress Note VANCOMYCIN PER PHARMACY [...] Vancomycin Protocol Electronically signed by: Jose Menard, Mold Unloader 03/26/2019 10:52 su, Randy Nunez MD - 03/26/2019 1 0:38 AM PDT [facility] INPATIENT ROUNDING NOTE Date of Service: 03/26/2019 Rounding Physician: Randy Corrigan MD Patient Name: Estefani Tilley : 1945 Medical Record: [id number] Hospital Summary: Estefani Tilley is a 73 y.o. female with a PMHx of ESRD, HTN, Dm type 2, hypothyroidism, HLd, CVA who is under the care of Dr Muñoz at [facility] who dialyzes MWF admitted with possible osteo disccitis t11/t12 ASSESSMENT AND PLAN 1. ESRD/HD dependent Access is LUE AVF working well No indications for HD today Usually dialyzes MWF at [facility] Hd tommorow 2. Anemia Hg [...] Tilley 73 y.o. 1945 Med. Record Number: [id number] Date of admission: 03/24/2019 Patient admitted with [...] Electronically signed by: Carlos Jansen, 03/26/2019 8:03 [facility] Katey Solis MD - 03/25/2019 3:50 PM PDT Patient: Estefani Tilley Date of : 1945 Admit Date: 03/24/2019 Date of Service: 03/25/2019 PCP: Francisca Womack PA-C Hospital Day: Hospital Day: 2 Hospital Course: 73-year-old female with history of ESRD on hemodialysis, hypertension, type 2 diabetes, hyp othyroidism, chronic anemia, hyperlipidemia with a history of stroke transferred from [facility] [place] for evaluation of T11-T12 lesion noted on [...] Single Lumen 03/24/19 2143 Left Lateral Forearm jwot-qqh-fpshrq daniel ter system 20 gauge;1 1/4 in [...] - 99 mg/dL Final Comment: Performed by [facility] [address] [place] [address] 03/25/2019 06:52 107 (H) 65 - 99 mg/dL Final Comment: Performed by [facility] [address] [place] [address] 03/24/2019 20:11 112 (H) 65 - 99 mg/dL Final Comment: Performed by [facility] [address] [place] [address] 12/09/2018 18:05 113 (H) 70 - 109 [...] this chart may have been created with [employer] voice recognition software. Occasi onal wrong-word or sound-alike substitutions may have occurred due to the inherent mckeon itations of voice recognition software. Please read the chart carefully and recognize, using context, where these substitutions have occurred su, Randy Nunez MD - 0 03/25/2019 1:47 PM PDT [facility] INPATIENT ROUNDING NOTE Date of Service: 03/25/2019 Rounding Physician: Randy Corrigan MD Patient Name: Estefani Tilley : 1945 Medical Record: [id number] Hospital Summary: Estefani Tilley is a 73 y.o. female with a PMHx of ESRD, HTN, Dm type 2, hypothyroidism, HLd, CVA who is under the care of Dr Muñoz at [facility] who dialyzes MWF admitted with possible osteo disccitis t11/t12 ASSESSMENT AND PLAN 1. ESRD/HD dependent Access is LUE AVF working well No indications for HD today Usually dialyzes MWF at [facility] She is below her EDW [...] pt mostly lives at Yina's house outside [facility] [place], but does not like to be tied down because she enjoys attending [place] festivals and many events. She does atten d dialysis weekly. Pt has a vehicle and is very independent. ASSESSMENT/CHART REVIEW:73 yr old femalewith a history of ESRD on hemodialysis, hypertens ion, type 2 diabetes, hypothyroidism,chronic anemia,hyperlipidemia, hx of stroke [facility]-T12 lesion noted on MRI concerning fo r osteomyelitis. D/C TRANSPORT: tbd BARRIERS TO D/C: none CONTACTS: Yina La Sister [phone] India Tilley Sister [phone] Carlos Gonzales M D - 03/25/2019 8:34 AM PDT Infectious Diseases Progress Note Pt. Name/Age/: Estefani Tilley 73 y.o. 1945 Med. Record Number: [id number] Date of admission: 03/24/2019 Patient admitted with [...] Electronically signed by: Carlos Jansen, 03/25/2019 8:34 [facility] Jose Gamez, Mold Unloader - 03/24/2019 10:46 PM PDTFormatting of this [...] Vancomycin Protocol Electronically signed by: Jose Menard, Mold Unloader 03/24/2019 22:46 Gladys Daugherty MSW - 9 [...] pt mostly lives at Yina's house outside [place], [place], but do es not like to be tied down because she enjoys attending [place] festivals and many events. She does attend dialysis weekly. Pt has a vehicle and is very independent. ASSESSMENT/CHART REVIEW:73 yr old female with a history of ESRD on hemodialysis, hypertensi on, type 2 diabetes, hypothyroidism, chronic anemia, hyperlipidemia, hx of stroke transferre d from [facility] for evaluation of T11-T12 lesion noted on MRI concerning for ost eomyelitis. D/C TRANSPORT: tbd BARRIERS TO D/C: none CONTACTS: Yina La Sister [phone] India Tilley Sister [phone] Katey Solis MD - 03/24/2019 3:53 PM PDTPatient seen and examined. Chart reviewed. Briefly, 73-year-old female with history of ESRD on hemodialysis, hypertension, type 2 diab etes, hypothyroidism, chronic anemia, hyperlipidemia with a history of stroke transferred [facility] [place] [facility] [place] for evaluation of T11-T12 lesion noted on [...] not have any p raza, consider antidepressants. 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 2. [...] Procedure Component Value Units Date/Time Culture, Blood [[id number]] Collected: 03/23/192332 Order Status: Sent Lab Status: In process Updated: 03/23/192348 Specimen: Blood Culture, Blood [[id number]] Collected: 03/23/192254 Order Status: Sent Lab Status: [...] | [facility] | | | POC | [facility] [address], | | SACRED | | | | [place] [address] | | HEART | | | |Performed by [facility] [address], [place] [address] | | MEDICAL | | | | [...] Ave. | [place] | | | [facility] | | | | | [...] | RIMAE | | | POC | [facility] [address], | | SACRED | | | | [place] | | HEART | | | |Performed by [facility] [address], [place] [address] | | MEDICAL | | | | [...] + | [facility] | [address] | [place] [address] | | | [facility] | | | | | LABORATORY [...] | | LABORATORY | | | | [facility] [address], | | CERNER | | | | [place] [address] | | | | + + + + + + + + | Specimen | + + | Blood specimen | | (specimen) | + + + + + + + | Performing | Address | City/State/Zipcode | Phone Number | | Organization | | | | + + + + + | BETH [facility] | [address] | [place] [address] | | | [facility] | | | | | [...] ENCE | | | Immature | by [facility] [address], | K/uL | SACRED | | | Granulocyte | [place] [address] | | HEART | | | s |Performed by [facility] [address], [place] [address] | | MEDICA L | | | [...] + + | [facility] | [address] | [place] [address] | | | [facility] | | | | | [...] by | | | | | | [facility] [address], | | | | | | [place] [address] | | | | + + + + + + + + | Specimen | + + | Blood specimen | | (specimen) | + + + + + + + | Performing | Address | City/State/Zipcode | Phone Number | | Organization | | | | + + + + + | BETH [facility] | [address] | [place] [address] | | | [facility] | | | | | [...] | | | POC | Performed by [facility] [address] | | SACREVANS | | | | [place] | | HEART | | | | [address] | | MEDICAL | | | | [...] + | BETH [facility]Z | [address] | [place] [address] | | | [facility] | | | | | [...] | | | POC | Performed by [facility] [address] | | SACRED [...] | [address] | [place] [address] | | | HEART [facility] | | | | | LABORATORY [...] | | | POC | Performed by [facility] [address] | | SACRED | | | | [address] [place] | | HEART | | | | [address] | | MEDICAL | | | | [...] + | BETH LIZ | [address] | [place] [address] | | | [facility] | | | | | [...] | | | POC | Performed by [facility] [address] | | SACRED [...] [address] | [place] [address] | | | HEART [facility] | | | | | LABORATORY [...] PROVIDE NCE | | | | by [facility] [address], | | SACRED | | | | [place] [address] | | HEART | | | |Performed by [facility] [address], [place] [address] | | MEDICAL | | | | [...] + + | JIMRENUKA LIZ | [address] | [place] [address] | | | [facility] | | | | | [...] LUIS CE | | | | by [facility] [address], | | SACRED | | | | [place] [address] | | HEART | | | |Performed by [facility] [address], [place] [address] | | MEDICAL | | | | [...] [address] | [place] [address] | | | [facility] | | | | | [...] | | LABORATORY | | | | [facility] [address], | | CERNER | | | | [place] [address] | | | | + + + + + + + + | Specimen | + + | Blood specimen | | (specimen) | + + + + + + + | Performing | Address | City/State/Zipcode | Phone Number | | Organization | | | | + + + + + | BETH LIZ | [address] | [place] [address] | | | [facility] | | | | | [...] ENCE | | | Counted | by [facility] [address] [place] [address], | | SACRED | | | | [place] [address] | | HEART | | | |Performed by [facility] [address], [place] [address] | | MEDICA L | | | [...] + + | BETH LIZ | [address] | [place] [address] | | | [facility] | | | | | [...] | | | POC | Performed by [facility] [address] | | SACRED | | | | [address] [place], [place] | | HEART | | | | [address] | | MEDICAL | | | | [...] [address] | [place] [address] | | | [facility] | [...] | PROVIDENCE | | | POC | [facility] [address] [facility] [address], | | SACRED | | | | [place] [address] | | HEART | | | |Performed by [facility] [address], [place] [address] | | MEDICAL | | | | [...] + + | JIMRENUKA LIZ | [address] | [place] [address] | | | [facility] | | | | | [...] | | | POC | Performed by [facility] [address] | | SACRED | | | | [address] [place] | | HEART | | | | [address] | | MEDICAL | | | | [...] [address] | [place] [address] | | | [facility] | | | | | [...] AGUSTO | | | | [place] [address] | | HEART | | | |Performed by [facility] [address], [place] [address] | | MEDICAL | | | | [...] + + | BETH [facility] | [address] | [place] [address] | | | [facility] | [...] by | | | | | | [facility] [address], | | | | | | [place] [address] | | | | + + + + + + + + | Specimen | + + | Blood specimen | | (specimen) | + + + + + + + | Performing | Address | City/State/Zipcode | Phone Number | | Organization | | | | + + + + + | BETH [facility] | [address] | [place] [address] | | | [facility] | | | | | [...] ENCE | | | Counted | by [facility] [address], | | SACRED | | | | [place] [address] | | HEART | | | |Performed by [facility] [address], [place] [address] | | MEDICA L | | | [...] + | BETH LIZ | [address] [place] [address]. | [place] [address] | | | [facility] | | | | | [...] LUIS CE | | | | by [facility] [address], | | SACRED | | | | [place] [address] | | HEART | | | |Performed by [facility] [address], [place] [address] | | MEDICAL | | | | [...] SACRED | [address] | [place] [address] | | | [facility] | | | | | LABORATORY [...] | | LABORATORY | | | | [facility] [address], | | [place] | | | | [place] [address] | | | | + + + + + + + + | Specimen | + + | Blood specimen | | (specimen) | + + + + + + + | Performing | Address | City/State/Zipcode | Phone Number | | Organization | | | | + + + + + | JIMJOSE ADora LIZ | [address] | [place] [address] | | | [facility] | | | | | [...] | | | POC | Performed by [facility] [address] | | SACRED | | | | [address], [place] | | HEART | | | | [address] | | MEDICAL | | | | [...] | [address] | [place] [address] | | | [facility] | [...] | | | POC | Performed by [facility] [address] | | SACRED | | | | [address] [place] | | HEART | | | | [address] | | MEDICAL | | | | [...] + | JIMJOSE ADora LIZ | [address] | [place] [address] | | | [facility] | | | | | [...] | PROVIDENCE | | | POC | [facility] [address], | | SACRED | | | | [place] [address] | | HEART | | | |Performed by [facility] [address], [place] [address] | | MEDICAL | | | | [...] SACRED | [address] | [place] [address] | | | HEART [facility] | | | | | LABORATORY [...] | | LABORATORY | | | | [facility] [address], | | [place] | | | | [place] [address] | | | | + + + + + + + + | Specimen | + + | Blood specimen | | (specimen) | + + + + + + + | Performing | Address | City/State/Zipcode | Phone Number | | Organization | | | | + + + + + | BETH [facility] | [address] | [place] [address] | | | [facility] | | | | | [...] PROVIDE NCE | | | | by [facility] [address], | | SACRED | | | | [place] [address] | | HEART | | | |Performed by [facility] [address], [place] [address] | | MEDICAL | | | | [...] + | BETH LIZ | [address] | [place] [address] | | | [facility] | | | | | [...] | | | POC | Performed by [facility] [address] | | SACRED [...] | HEART [facility] | | | | | LABORATORY [...] | | | POC | Performed by [facility] [address] | | SACRED | | | | [address] [place] | | HEART | | | | [address] | | MEDICAL | | | | [...] + | BETH [facility]Z | [address] [facility] [address] | [place] [address] | | | [facility] | | | | | [...] | PROVIDENCE | | | POC | [facility] [address], | | SACRED | | | | [place] [address] | | HEART | | | |Performed by [facility] [address], [place] [address] | | MEDICAL | | | | [...] + + | BETH [facility] | [address] | [place], [place] | | | [facility] [...] | PROVIDENCE | | | POC | [facility] [address], | | SACRED | | | | [place] | | HEART | | | |Performed by [facility] [address], [place] | | MEDICAL | | | [...] + + | BETH [facility] | [address] | [place] [address] | | | [facility] | | | | | [...] by | | | | | | [facility] [address], | | | | | | [place] [address] | | | | + + + + + + + + | Specimen | + + | Blood specimen | | (specimen) | + + + + + + + | Performing | Address | City/State/Zipcode | Phone Number | | Organization | | | | + + + + + | [facility] | [address] | [place] [address] | | | [facility] | | | | | [...] | | | POC | Performed by [facility] [address] | | SACRED [...] [address] | [place] [address] | | | HEART [facility] | | | | | LABORATORY [...] | | | POC | Performed by [facility] [address] | | SACRED | | | | [address] [place] | | HEART | | | | [address] | | MEDICAL | | | | [...] + | BETH [facility]Z | [address] | [place] [address] | | | [facility] | | | | | [...] | | | POC | Performed by [facility] [address] | | SACRED [...] [address] | [place] [address] | | | HEART [facility] | | | | | LABORATORY [...] PROVIDENCE | | | | Performed by [facility] [address] | | SACRED | | | | [address] [place], [place] | | HEART | | | | [address] | | MEDICAL | | | | [...] + | B[facility] | [address] | [place] [address] | | | [facility] | | | | | [...] | | | POC | Performed by [facility] [address] | | SACRED | | | | [address], [place], [place] | | HEART | | | | [address] | | MEDICAL | | | | [...] SACRED | [address] | [place] [address] | | | [facility] | [...] by | | | | | | [facility] [address], | | | | | | [place] [address] | | | | + + + + + + + + | Specimen | + + | Blood specimen | | (specimen) | + + + + + + + | Performing | Address | City/State/Zipcode | Phone Number | | Organization | | | | + + + + + | [facility] | [address] | [place] [address] | | | [facility] | | | | | [...] | | LABORATORY | | | | [facility] [address], | | [place] | | | | [place] [address] | | | | + + + + + + + + | Specimen | + + | Blood specimen | | (specimen) | + + + + + + + | Performing | Address | City/State/Zipcode | Phone Number | | Organization | | | | + + + + + | [facility] | [address] | [place] [address] | | | [facility] | | | | | [...] PROVIDE NCE | | | | by [facility] [address], | | SACRED | | | | [place] | | HEART | | | |Performed by [facility] [address], [place], [place] | | MEDICAL | | | [...] + + | [facility] | [address] | [place] | | | [facility] [...] CE | | | B-12 | by [facility] [address], | | SACRED | | | | [place] [address] | | HEART | | | |Performed by [facility] [address], [place] [address] | | MEDICAL | | | | [...] + + | [facility] | [address] | [place] [address] | | | [facility] | | | | | [...] by | | | | | | [facility] [address], | | | | | | [place] [address] | | | | + + + + + + + + | Specimen | + + | Blood specimen | | (specimen) | + + + + + + + | Performing | Address | City/State/Zipcode | Phone Number | | Organization | | | | + + + + + | [facility] | [address] | [place] [address] | | | [facility] | | | | | [...] | | | POC | Performed by [facility] [address] | | SACRED | | | | [address] [place] | | HEART | | | | [address] | | MEDICAL | | | | [...] [address] | [place] [address] | | | [facility] | | | | | [...] | | | POC | Performed by [facility] [address] | | SACRED | | | | [address], [place] | | HEART | | | | [address] | | MEDICAL | | | | [...] + | B[facility] | [address] | [place] [address] | | | [facility] | | | | | [...] | | | POC | Performed by [facility] [address] | | SACRED | | | | [address] [place] | | HEART | | | | [address] | | MEDICAL | | | | [...] + + | [facility] | [address] | [place] [address] | | | [facility] | | | | | [...] PROVIDE NCE | | | | by [facility] [address], | | SACRED | | | | [place] [address] | | HEART | | | |Performed by [facility] [address], [place] [address] | | MEDICAL | | | | [...] + + | JIMRENUKA AGUSTO | [address] | [place] [address] | | | [facility] | | | | | [...] LUIS CE | | | | by [facility] [address], | | SACRED | | | | [place], [place] | | HEART | | | |Performed by [facility] [address], [place] | | MEDICAL | | | [...] SACREVANS | [address] | [place], [place] | | | HEART [facility] | | | | | LABORATORY [...] | | LABORATORY | | | | [facility] [address], | | [place]ES[place] | | | | [place] [address] | | | | + + + + + + + + | Specimen | + + | Blood specimen | | (specimen) | + + + + + + + | Performing | Address | City/State/Zipcode | Phone Number | | Organization | | | | + + + + + | [facility] | [address] | [place] [address] | | | [facility] | | | | | [...] | | | POC | Performed by [facility] [address] | | SACRED | | | | [address] [place] | | HEART | | | | [address] | | MEDICAL | | | | [...] + | B[facility] | [address] | [place] [address] | | | [facility] | | | | | [...] | | | POC | Performed by [facility] [address] | | SACRED [...] [address] | [place] [address] | | | HEART [facility] | | | | | LABORATORY [...] | SACRED | | | Total | [place] [address] [address] | | HEART | | | | [address] [place], [place] | | MEDICAL | | | | [phone] Daniel | | CENTER | | | | Lauro HOLDEN Ph:[phone] | | LABORATORY | | | | [...] | JIMJOSE ADora LIZ | [address] | [place] [address] | | | [facility] | | | | | [...] | SACRED | | | | by [facility] [address], | | HEART | | | | [place] [address] | | MEDICAL | | | | [...] [address] | [place] [address] | | | [facility]ENTER | [...] | SACRED | | | | by [facility] [address], | | HEART | | | | [place] | | MEDICAL | | | [...] SACRED | [address] | [place] | | | [facility] | | | | | LABORATORY [...] | MEDICAL | | | | by [facility] [address], | | [place] | | | | [place] [address] | | LABORATORY | | | |Performed by [facility] [address], [place] [address] | | CERNER | | | | [...] + + | BETH [facility] | [address] | [place] [address] | | | [facility] | | | | | [...] | | | POC | Performed by [facility] [address] | | SACRED | | | | [address], [place] | | HEART | | | | [address] | | MEDICAL | | | | [...] | JIMJOSE ADora DENVEREVANS | [address] | [place] [address] | | | [facility] | | | | | [...] | | | POC | Performed by [facility] [facility] [address] | | [facility] | | | | [address] [place], [place] | | HEART | | | | [address] | | MEDICAL | | | | [...] + + | [facility] | [address] | [place] [address] | | | [facility] | [...] CENTER | | | | 3.5Performed by [facility] | | LABORATORY | | | | [address], [place] | | [place] | | | | [address] | | | | + + + + + + + + | Specimen | + + | Blood specimen | | (specimen) | + + + + + + + | Performing | Address | City/State/Zipcode | Phone Number | | Organization | | | | + + + + + | [facility] | [address] | [place] [address] | | | [facility] | | | | | [...] | | | Immature | Performed by [facility] [address] | K/uL | SACRED | | | Granulocyte | [address] [place] | | HEART | | | s | [address] | | MEDICAL | | | | [...] | JIMJOSE ADora [facility]Z | [address] | [place] [address] | | | [facility] | | | | | [...] | | LABORATORY | | | | [facility] [address], | | [place] | | | | [place] [address] | | | | + + + + + + + + | Specimen | + + | Blood specimen | | (specimen) | + + + + + + + | Performing | Address | City/State/[facility] | Phone Number | | Organization | | | | + + + + + | B[facility] | [address] | [place] [address] | | | [facility] | | | | | [...] scheduled: AC, NPO, Daytime | | | 7908-7905 Use NIGHT DOSE for | | | doses scheduled: HS, 3AM, | | | Nighttime 0365-2883 If the BG is | | | [...]
--- OUTSIDE RECORDS SUMMARY | ~2019-08-24 | XMS | Encounter Summary ---
Demographics + + + | Address | [address] | | | [place] [address] | + + + | Home Phone [...] [facility] | | | and [place] | + + + | Organization | [facility] | | | and [place] | + + + | Address | Unknown | + + + | Phone | Unavailable | + + + Support + + + + + | Name | Relationship | Address | Phone | + + + + + | India Tilley | ECON | [address] | | | | | [place], [place] | | | | | [address] | | + + + + + | Yina La | ECON | Unknown | | + + + + + | Yina Peterson | ECON | Unknown | | + + + + + | Leatha Casillas | ECON | Unknown | | + + + + + Care Team Providers + +------+ + | Care Tile Layer Drainage Name | Role | Phone | + [...] | | | | | [address] | [place] | | | | | [place] | [phone] | | | | | [address] | | | | | | [phone] | Vinnie Last MD | | | | | | [address] | | | | | | [place] | | | | | | [address] | | | | | | | [...] +----+---+ + + | | 1 | Coats | | | | 3 | 43-degrees | | | | 2 | | | | | 1 | | | +----+---+ + + | | 1 | First | | | | 3 | Inc/Proc St | | | | 2 | | | | | 8 | | | +----+---+ + + | | 1 | Coats off | | | | 5 | [...] 01/04/18 1728 by | | eral | [id number] catheter system; | Linh Gamez RN | [...]
--- OUTSIDE RECORDS SUMMARY | ~2019-08-24 | XMS | Encounter Summary ---
Demographics + + + | Address | [address] | | | [place] [address] | + + + | Home Phone [...] | Author | [facility] | | | and [place] | + + + | Organization | [facility] | | | and [place] | + + + | Address | Unknown | + + + | Phone | Unavailable | + + + Support + + + + + | Name | Relationship | Address | Phone | + + + + + | India Tilley | ECON | [address] | | | | | [place], [place] | | | | | [address] | | + + + + + | Yina La | ECON | Unknown | | + + + + + | Yina Peterson | ECON | Unknown | | + + + + + | Leatha Casillas | ECON | Unknown | | + + + + + Care Team Providers + +------+ + | Care Crtt Name | Role | Phone | + [...] | Surgery | kidney | DO [address] | [address] | | | | | disease, | [place], Jorden | [address] | | | | | stage V | [address] | [place], | | | | | ([facility]) | [place] | [place] [address] | | | | | | [address] | Phone: | | | | | | Phone: | [phone] | | | | | | [phone] | Fax: | | | | | | Fax: | [phone] | | | | | | [phone] | | +--------+ + + + + + Encounter Details +--------+---------+ + + + | Date | Type | Department | Care Team | Description | +--------+---------+ + + + | 02/10/ | Office | [facility] | Santos Stephenson | Chronic kidney | | 2018 | Visit | SURGERY [address] | MD Kinga, FACS [address] | disease, stage V | | | | [place], [place] | [address] [facility] | (HCC) (Primary Dx); | | | | [address] | [facility] [place] [place] [address] | Post-operative state | | | | [phone] | [phone] | | | | | | | [...] REPORT: PATIENT NAME : Estefani Tilley EQUIPMENT: Amnis M-Turbo with 10-5 mHertz probe. INDICATIONS: S/P [...]
--- OUTSIDE RECORDS SUMMARY | ~2019-08-24 | XMS | Encounter Summary ---
Demographics + + + | Address | [address] | | | [place] [address] | + + + | Home Phone [...] | Author | [facility] | | | and [place] | + + + | Organization | [facility] | | | and [place] | + + + | Address | Unknown | + + + | Phone | Unavailable | + + + Support + + + + + | Name | Relationship | Address | Phone | + + + + + | India Tilley | ECON | [id number] | | | | | [place], [place] | | | | | [address] | | + + + + + | Yina La | ECON | Unknown | | + + + + + | Yina Peterson | ECON | Unknown | | + + + + + | Leatha Casillas | ECON | Unknown | | + + + + + Care Team Providers + +------+ + | Care Forest Practices Field Coordinator Name | Role | Phone | [...] + + | 08/17/ | Telephone | [facility] | Louise Fink, | Procedure (no show) | | 2019 | | VASCULAR SURGERY | RN | | | | | [address] | | | | | | [place] | | | | | | [address] | | | | | | [phone] | | | +--------+ + + + [...]
--- OUTSIDE RECORDS SUMMARY | ~2019-08-24 | XMS | Encounter Summary ---
Demographics + + + | Address | [address] | | | [place] [address] | + + + | Home Phone [...] Author | [facility] | | | and [place] | + + + | Organization | [facility] | | | and [place] | + + + | Address | Unknown | + + + | Phone | Unavailable | + + + Support + + + + + | Name | Relationship | Address | Phone | + + + + + | India Tilley | ECON | [id number] | | | | | [place], [place] | | | | | [address] | | + + + + + | Yina La | ECON | Unknown | | + + + + + | Yina Peterson | ECON | Unknown | | + + + + + | Leatha Casillas | ECON | Unknown | | + + + + + Care Team Providers + +------+ + | Care Documentation Improvement Specialist Name | Role | Phone | + +------+ + PCP | Unavailable | + +------+ + Encounter Details +--------+ + + + + | Date | Type | Department | Care Team | Description | +--------+ + + + + | 11/24/ | Hospital | [facility] | | | | 2006 - | Encounter | MED CTR CANCER | | | | | | CENTER [facility] [address] | | | | 12/11/ | | [place] | | | | 2006 | | [address] | | | | | | [phone] | | | +--------+ + + + [...]
--- OUTSIDE RECORDS SUMMARY | ~2019-08-24 | XMS | Encounter Summary ---
Demographics + + + | Address | [address] | | | [place] [address] | + + + | Home Phone [...] | Author | [facility] | | | and [place] | + + + | Organization | [facility] | | | and [place] | + + + | Address | Unknown | + + + | Phone | Unavailable | + + + Support + + + + + | Name | Relationship | Address | Phone | + + + + + | India Tilley | ECON | [id number] | | | | | [place], [place] | | | | | [address] | | + + + + + | Yina La | ECON | Unknown | | + + + + + | Yina Peterson | ECON | Unknown | | + + + + + | Leatha Casillas | ECON | Unknown | | + + + + + Care Team Providers + +------+ + | Care Poultry Hanger Name | Role | Phone | [...] | [address] | [address], [place] | | | | | [place] | [address] [place] | | | | | [address] | [address] | | | | | [phone] | | | +--------+ + + + [...] [employer] for consult: need to fax to [facility] closer t o appt. RU [...]
--- OUTSIDE RECORDS SUMMARY | ~2019-08-24 | XMS | Encounter Summary ---
Demographics + + + | Address | [address] | | | [place] [address] | + + + | Home Phone [...] Author | [facility] | | | and [place] | + + + | Organization | [facility] | | | and [place] | + + + | Address | Unknown | + + + | Phone | Unavailable | + + + Support + + + + + | Name | Relationship | Address | Phone | + + + + + | India Tilley | ECON | [phone] | | | | | [place], [place] | | | | | [address] | | + + + + + | Yina La | ECON | Unknown | | + + + + + | Yina Peterson | ECON | Unknown | | + + + + + | Leatha Casillas | ECON | Unknown | | + + + + + Care Team Providers + +------+ + | Care Insurance Checker Name | Role | Phone | + +------+ + PCP | Unavailable | + +------+ + Encounter Details +--------+ + + + + | Date | Type | Department | Care Team | Description | +--------+ + + + + | 12/20/ | Hospital | [facility] | [facility], | | | 2008 - | Encounter | MED CTR CANCER | Venkatesh Forte MD [address] | | | | | [place] [address] | [facility] | | | 01/10/ | | [place], [place] | [place] [address] | | | 2008 | | [address] | [phone] | | | | | [phone] | | | +--------+ + + + [...]
--- OUTSIDE RECORDS SUMMARY | ~2019-08-24 | XMS | Encounter Summary ---
Demographics + + + | Address | [address] | | | [place] [address] | + + + | Home Phone [...] | Author | [facility] | | | and [place] | + + + | Organization | [facility] | | | and [place] | + + + | Address | Unknown | + + + | Phone | Unavailable | + + + Support + + + + + | Name | Relationship | Address | Phone | + + + + + | India Tilley | ECON | [id number] | | | | | [place], [place] | | | | | [address] | | + + + + + | Y[place] La | ECON | Unknown | | + + + + + | Yina Peterson | ECON | Unknown | | + + + + + | Leatha Casillas | ECON | Unknown | | + + + + + Care Team Providers + +------+ + | Care Unarmed Security Guard Name | Role | Phone | + +------+ + PCP | Unavailable | + +------+ + Encounter Details +--------+ + + + + | Date | Type | Department | Care Team | Description | +--------+ + + + + | 12/19/ | Hospital | [facility] | [place], | | | 2007 - | Encounter | MED CTR CANCER | Venkatesh Forte MD [address] | | | | | [place] [address] | [facility] | | | 01/10/ | | [place], [place] | [place] [address] | | | 2007 | | [address] | [phone] | | | | | [phone] | | | +--------+ + + + [...]
--- OUTSIDE RECORDS SUMMARY | ~2019-08-24 | XMS | Encounter Summary ---
Demographics + + + | Address | [address] | | | [place] [address] | + + + | Home Phone [...] Author | [facility] | | | and [place] | + + + | Organization | [facility] | | | and [place] | + + + | Address | Unknown | + + + | Phone | Unavailable | + + + Support + + + + + | Name | Relationship | Address | Phone | + + + + + | India Tilley | ECON | [phone] | | | | | [place], [place] | | | | | [address] | | + + + + + | Yina La | ECON | Unknown | | + + + + + | Yina Peterson | ECON | Unknown | | + + + + + | Leatha Casillas | ECON | Unknown | | + + + + + Care Team Providers + +------+ + | Care Reading Tutor Name | Role | Phone | + +------+ + PCP | Unavailable | + +------+ + Encounter Details +--------+ + + + + | Date | Type | Department | Care Team | Description | +--------+ + + + + | 09/25/ | Hospital | [facility] | [facility], | | | 2007 - | Encounter | MED CTR CANCER | Venkatesh Forte MD [address] | | | | | [place] [address] | [facility] | | | 10/13/ | | [place] | [place] [address] | | | 2007 | | [address] | [phone] | | | | | [phone] | | | +--------+ + + + [...]
--- OUTSIDE RECORDS SUMMARY | ~2019-08-24 | XMS | Encounter Summary ---
Demographics + + + | Address | [address] | | | [place] [address] | + + + | Home Phone [...] + | Author | [facility] | | | and [place] | + + + | Organization | [facility] | | | and [place] | + + + | Address | Unknown | + + + | Phone | Unavailable | + + + Support + + + + + | Name | Relationship | Address | Phone | + + + + + | India Tilley | ECON | [id number] | | | | | [place], [place] | | | | | [address] | | + + + + + | Yina La | ECON | Unknown | | + + + + + | Yina Peterson | ECON | Unknown | | + + + + + | Leatha Casillas | ECON | Unknown | | + + + + + Care Team Providers + +------+ + | Care Regional Extension Service Specialist Name | Role | Phone | + +------+ + | Renato Pierson LEGAL PRACTICE MANAGER | PCP | | + +------+ [...] | Infection | Nick Miller | [address]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 | [place], | [place], | | | | | 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 | [place] [address] | | | | | al disc | [address] | Phone: | | | | | (pyogenic), | [place], [place] | [phone] | | | | | thoracic | [address] | Fax: | | | | | region (HCC) | Phone: | [phone] | | | | | | [phone] | | | | | | 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: | | | | | | s of | [phone] | | | | | | thoracic | | | | | | | vertebra | | | | | | | ([facility]) | | | | | | | [...] + + | 07/13/ | Hospital | [facility] | Fabiana Miller, | Canceled (OTHER) | | 2019 | Encounter | CENTER IR INTRA OP | Nick Apodaca MD | | | | | [address] | [address] | | | | | [place], [place] | [place] [address] | | | | | [address] | [phone] | | | | | [phone] | | | | | | | [address] [place] | | | | | | MD [address] | | | | | | [address] | | | | | | [place] [address] | | | | | | [phone] | | | | | | | [...]
--- OUTSIDE RECORDS SUMMARY | ~2019-08-24 | XMS | Encounter Summary ---
Demographics + + + | Address | [address] | | | [place] [address] | + + + | Home Phone [...] + | Author | [facility] | | | and Kamal[place]itana | + + + | Organization | [facility] | | | and [place] | + + + | Address | Unknown | + + + | Phone | Unavailable | + + + Support + + + + + | Name | Relationship | Address | Phone | + + + + + | India Campos | ECON | [address] | | | | | [place], [place] | | | | | [address] | | + + + + + | Yina La | ECON | Unknown | | + + + + + | Yina Peterson | ECON | Unknown | | + + + + + | Leatha Casillas | ECON | Unknown | | + + + + + Care Team Providers + +------+ + | Care Roving Hauler Name | Role | Phone | + [...] renal | [address] | [place] | | | | | disease) on | [facility] | [place], | | | | | dialysis | [place], [place] | [place] [address] | | | | | ([facility]) | [address] | Phone: | | | | | | Phone: | [phone] | | | | | | [phone] | Fax: | | | | | | Fax: | [phone] | | | | | | [phone] | | +--------+--------+ + + + + [...] | | | | dialysis | [place] | [place] | | | | | ([facility]) | [address] | [address] | | | | | Essential | Phone: | Phone: | | | | | hypertension | [phone] | [phone] | | | | | Type 2 | Fax: | Fax: | | | | | diabetes | [phone] | [phone] | | | | | mellitus | [...] | | | | ([facility]) | | | +--------+ + + + [...] | | | | | dialysis | [facility] [place] | [place] | | | | | ([facility]) | [address] | [address] | | | | | Essential | Phone: | Phone: | | | | | hypertension | [phone] | [phone] | | | | | Type 2 | Fax: | Fax: | | | | | diabetes | [phone] | [phone] | | | | | mellitus | [...] | | | | ([facility]) | | | +--------+ + + + [...] + + | 05/20/ | Hospital | [facility] | Mirza Retana | Hypoxia; Pulmonary | | 2019 - | Encounter | [facility] | MD Coy [address] | edema with | | | | [address] [place] | [address] [place] | congestive heart | | 05/25/ | | [place] [address] | [place] [address] | failure, NYHA class | | 2019 | | [phone] | [phone] | 4 (HCC); ESRD (end | | | | | | stage renal disease) | | | | | Nora Christina MD | on dialysis ([facility]); | | | | | [address] | Hypertensive | | | | | [place], [place] | urgency, malignant; | | | | | [address] | Anemia in chronic | | | | | | kidney disease, on | | | | | | chronic dialysis | | | | | | ([facility]); Essential | | | | | | hypertension; | | | | | | Osteomyelitis of | | | | | | thoracic region | | | | | | ([facility]); Type 2 | | | | [...] Christina MD - 05/25/2019 11:24 AM PDT [facility] ID HOSPITALIST DISCHARGE SUMMARY Pt. 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 S/p thoracentesis wit h 1300cc fluid removed, studies c/w transudative effusion. Cytology negative for malignant c ells. No growth on culture thus far. Patient is on room air. Of note, recent echo in March sh owed normal EF. 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 SBP 200s on a rrival here. Blood pressure improved after HD, resumption of home medications. Amlodipine an d losartan also added, Nephrology will CTM as outpatient. #Acute metabolic encephalopathy Possibly 2/2 medication as patient received 1mg Ativan at OSH PROJECT PROGRAM MANAGER. At baseline currently. #Recent osteomyelitis Patient [...] Nephrology Why: Nephrology follow up Contact information: [address] [place] [address] Condition: stable Diet: renal, cc Greater than 30 minutes were spent on discharge and coordination of post-hospital care. Electronically signed by: Nora Christina MD, 05/25/2019 11:24 [facility] documented in this enco unter Discharge [...] will likely include a biopsy in the [facility] down the line. Nora Christina [...] Back pain, Breast cancer ([facility]), Cancer ([facility]), Diabetes (HCC), Heart disease, Hemodialysis patient ([facility]), History of blood clots, Hypercholesteremia, Hypertensio n, Hypothyroidism, Renal failure, Seasonal allergies, and Stroke (cerebrum) ([facility]). . Risk fa ctors for MDR [...] Culture, Body Fluid, Sterile, Smear, with Anaerobes [[id number]] Collected: 05/22/19 150 Order Status: Sent Lab Status: In process Updated: 05/22/19 151 Specimen: Body Fluid from Pleural Fluid, Left Narrative: The following orders were created for panel order Culture, Body Fluid, Sterile, Smear, wit h Anaerobes. Procedure Abnormality Status --------- ------ Culture, Body Fluid, Aerobe[[id number]] Preliminary result Culture, Body Fluid, Bre...[[id number]] In process Please view results for these tests on the individual orders. Culture, Fungus, Smear [[id number]] Collected: 05/22/19 150 Order Status: Sent Lab Status: In process Updated: 05/22/19 1510 Specimen: Body Fluid from Pleural Fluid, Left Culture, Body Fluid, Aerobe [[id number]] Collected: 05/22/19 150 Order Status: Completed Lab Status: Preliminary result Updated: 05/24/19 1038 Specimen: Body Fluid from Pleural Fluid, Left Culture No growth to date Gram Stain Result 4+ White Blood Cells No organisms seen Culture, Body Fluid, Anaerobe [[id number]] Collected: 05/22/19 1509 Order Status: Resulted Lab Status: In process Updated: 05/22/19 1510 Specimen: Body Fluid from Pleural Fluid, Left Culture, MRSA [[id number]] Collected: 05/20/192021 Order Status: Completed Lab Status: Final result Updated: 05/22/19 0753 Specimen: Tissue from Nares Culture Negative for MRSA by chromogenic agar method. 2+ Coagulase positive Staphylococcus Culture, Blood, 2nd Specimen [[id number]] Collected: 05/18/19 1548 Order Status: Completed Lab Status: Final result Updated: 05/24/19545 RESULT NO GROWTH 6 DAYS RESULT Testing performed at [facility];[address] [place] [address];[place] [address] Comment: Testing performed at [facility], [address] [place] [address] Culture, Blood [[id number]] Collected: 05/18/19 1508 Order Status: Completed Lab Status: Final result Updated: 05/24/19545 Specimen: Blood from Antecubital, Right RESULT NO GROWTH 6 DAYS RESULT Testing performed at [facility];[address] [place] [address];[place] [address] Comment: Testing performed at [facility], [address] [place] [address], [place] [address] Culture, Blood [[id number]] Collected: 05/18/19 1447 Order Status: Canceled Lab [...] and htn Prior to admission dialysis schedule: [facility] Vancomycin Dosing in HD patients: Loading [...] ESR, Cxs, case with his previous ID Processing Operator, Dr. Nick Miller MD . He [...] here. Therefore, shai kearney confer with [facility] IR, outpt. She was agreeable to staying one more nite for HD and clarif y AB regimen. Vanc. /Cefepime were given, IV, during discussion, after reviewing MRI report but before the phone conversation with Dr. Jung. BP control is better. Her Mental status is very clear. Also had HD x 5 hrs, 2K+, 35 HCO3 a nd tolerated well. [facility] Joo Rodriguez, Food Service Utility Worker - 05/24/2019 3:46 PM PDT VANCOMYCIN PER [...] Culture, Body Fluid, Sterile, Smear, with Anaerobes [[id number]] Collected: 05/22/19 150 Order Status: Sent Lab Status: In process Updated: 05/22/191512 Specimen: Body Fluid from Pleural Fluid, Left Narrative: The following orders were created for panel order Culture, Body Fluid, Sterile, Smear, wit h Anaerobes. Procedure Abnormality Status --------- ------ Culture, Body Fluid, Aerobe[[id number]] Preliminary result Culture, Body Fluid, Bre...[[id number]] In process Please view results for these tests on the individual orders. Culture, Fungus, Smear [[id number]] Collected: 05/22/19 150 Order Status: Sent Lab Status: In process Updated: 05/22/19 151 Specimen: Body Fluid from Pleural Fluid, Left Culture, Body Fluid, Aerobe [[id number]] Collected: 05/22/19 150 Order Status: Completed Lab Status: Preliminary result Updated: 05/24/19 1038 Specimen: Body Fluid from Pleural Fluid, Left Culture No growth to date Gram Stain Result 4+ White Blood Cells No organisms seen Culture, Body Fluid, Anaerobe [[id number]] Collected: 05/22/19 150 Order Status: Resulted Lab Status: In process Updated: 05/22/19 151 Specimen: Body Fluid from Pleural Fluid, Left Culture, MRSA [[id number]] Collected: 05/20/192021 Order Status: Completed Lab Status: Final result Updated: 05/22/19 0753 Specimen: Tissue from Nares Culture Negative for MRSA by chromogenic agar method. 2+ Coagulase positive Staphylococcus Culture, Blood, 2nd Specimen [[id number]] Collected: 05/18/19 1548 Order Status: Completed Lab Status: Final result Updated: 05/24/19545 RESULT NO GROWTH 6 DAYS RESULT Testing performed at [facility];[address] [place] [address];[place] [address] Comment: Testing performed at [facility], [address] [place] [address], [place] [address] Culture, Blood [[id number]] Collected: 05/18/19 1508 Order Status: Completed Lab Status: Final result Updated: 05/24/19545 Specimen: Blood from Antecubital, Right RESULT NO GROWTH 6 DAYS RESULT Testing performed at [facility];[address] [place] [address];[place] [address] Comment: Testing performed at [facility], [address] [place] [address], [place] [address] Culture, Blood [[id number]] Collected: 05/18/19 1447 Order Status: Canceled Lab [...] BP elevated Prior to admission dialysis schedule: [facility] Vancomycin Dosing in HD patients: Loading [...] Monitoring Protocol Electronically signed by: Joo Bo, Food Service Utility Worker 05/24/2019 15:46Electroni terri signed by Joo Bo, Food Service Utility Worker at 05/24/2019 4:49 PM Kwame Guerin MD - 05/24/2019 11:04 AM PDTFormatting of this note might be different from the origin al. [facility] [place] HOSPITALIST PROGRESS NOTE Patient: Ara Campos : 1945: Age: 74 y.o. 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 At baseline currently. #Recent osteomyelitis Patient admitted with T11-12 osteomyelitis and completed 6 weeks vanc/cefepime. Rep eat MRI again redemonstrated possible osteomyelitis - vanc and cefepime have been resumed, Deepa Muñoz is discussing case with ID. #Diabetes Blood sugars at goal. CCM. Patient is again very upset about the food provided at the [facility] and is eating little to no [...] Culture, Body Fluid, Sterile, Smear, with Anaerobes [[id number]] Collected: 05/22/19 150 Order Status: Sent Lab Status: In process Updated: 05/22/191512 Specimen: Body Fluid from Pleural Fluid, Left Narrative: The following orders were created for panel order Culture, Body Fluid, Sterile, Smear, wit h Anaerobes. Procedure Abnormality Status --------- ------ Culture, Body Fluid, Aerobe[[id number]] Preliminary result Culture, Body Fluid, Bre...[[id number]] In process Please view results for these tests on the individual orders. Culture, Fungus, Smear [[id number]] Collected: 05/22/19 150 Order Status: Sent Lab Status: In process Updated: 05/22/191509 Specimen: Body Fluid from Pleural Fluid, Left Culture, Body Fluid, Aerobe [[id number]] Collected: 05/22/19 1509 Order Status: Completed Lab Status: Preliminary result Updated: 05/24/19 1038 Specimen: Body Fluid from Pleural Fluid, Left Culture No growth to date Gram Stain Result 4+ White Blood Cells No organisms seen Culture, Body Fluid, Anaerobe [[id number]] Collected: 05/22/19 1509 Order Status: Resulted Lab [...] rate 6L/min Nora Christina MD 05/24/2019 11:04 [facility] Michelle Solorzano Phar mD - 05/23/2019 [...] Tobacco & Alcohol use/frequency: ? Recreational substances: Lrrsnpyse-eanrasq-tjoy asked how much or how often patient sta rich "I smoke as much as I want" Other: No changes to PROJECT PROGRAM MANAGER list, due to the fact that patient was very non compliant. She either di d not want to take her medications, or she stated that she did not know if she was taking th em. She did not want to do the interview. Best possible PROJECT PROGRAM MANAGER medication list after pharmacy review: Medication review performed and electronically signed by Kerry Jordan, [employer] Mixer Operator 05/23/2019 16:20 Reviewed by Michelle Ochoa, PharmD 05/23/2019 18:26 Nora Guerin MD - 05/23/2019 3:20 PM PDT [place], [place] HOSPITALIST PROGRESS NOTE Patient: Ara Campos : 1945: Age: 74 y.o. 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 At baseline currently. #Recent osteomyelitis Patient [...] Units Subcutaneous 2 times per day Gopi Mñuoz DO 5,000 Units at 05/23/19 0835 insulin [...] Culture, Body Fluid, Sterile, Smear, with Anaerobes [[id number]] Collected: 05/22/191508 Order Status: Sent Lab Status: In process Updated: 05/22/191512 Specimen: Body Fluid from Pleural Fluid, Left Narrative: The following orders were created for panel order Culture, Body Fluid, Sterile, Smear, wit h Anaerobes. Procedure Abnormality Status --------- ------ Culture, Body Fluid, Aerobe[[id number]] Preliminary result Culture, Body Fluid, Bre...[[id number]] In process Please view results for these tests on the individual orders. Culture, Fungus, Smear [[id number]] Collected: 05/22/191508 Order Status: Sent Lab Status: In process Updated: 05/22/191509 Specimen: Body Fluid from Pleural Fluid, Left Culture, Body Fluid, Aerobe [[id number]] Collected: 05/22/191508 Order Status: Completed Lab Status: Preliminary result Updated: 05/23/19902 Specimen: Body Fluid from Pleural Fluid, Left Culture No growth to date Gram Stain Result 4+ White Blood Cells No organisms seen Culture, Body Fluid, Anaerobe [[id number]] Collected: 05/22/191508 Order Status: Resulted Lab Status: In process Updated: 09/09/19 1510 Specimen: Body Fluid from Pleural Fluid, Left Culture, MRSA [[id number]] Collected: 05/20/192021 Order Status: Completed Lab Status: Final result Updated: 05/22/19 0755 Specimen: Tissue from Nares Culture Negative for [...] rate 0.5L/min Nora Christina MD 05/23/2019 15:20 [facility] documented in this enco unter Plan [...] | | | | | | dialysis ([facility]) | | | | | | [...] | | | | insulin ([facility]) | | + + +--------+ + + | Ambulatory referral | Outpatient | Routin | ESRD (end stage | Ordered: 05/25/2019 | | to Occupational | Referral | e | renal disease) on | | | Therapy | | | dialysis ([facility]) | | | | | | [...] + | [facility] | [address] | [place] | [phone] | | [facility] | | [address] | | | - LABORATORY | | [...] | | POC | | | [facility] | | | | | [...] + | [facility] | [address] | [place] | [phone] | | [facility] | | [address] | | | - LABORATORY | | [...] not | 11 (L)Comment: | >=60 | [facility] | | | | GLOMERULAR FILTRATION | mL/min/1.73m2 | [facility] | | | [place] | RATE,ESTIMATED | | MEDICAL | | | | mL/min/1.42o7Bjkk than | | CENTER - | | [...] + | [facility] | [address] | [place] | [phone] | | [facility] | | [address] | | | - LABORATORY | | [...] + | [facility] | [address] | [place] | [phone] | | [facility] | | [address] | | | - LABORATORY | | [...] [address] | [place] | [phone] | | [facility] | | [address] | | | - LABORATORY | | [...] ST. | [address] | [place], [place] | [phone] | | [facility] | | [address] | | | - LABORATORY | | [...] + | [facility] | [address] | [place] | [phone] | | [facility] | | [address] | | | - LABORATORY | | [...] (H) | 9 - 23 mg/dL | [facility] | | | | | | ST. [...] | | MEDICAL | | | | mL/min/1.17b9Dmhi than | | CENTER - | | [...] + | [facility] | [address] | [place] | [phone] | | [facility] | | [address] | | | - LABORATORY | | [...] [address] | [place] | [phone] | | [facility] | | [address] | | | - LABORATORY | | [...] [address] | [place] | [phone] | | [facility] | | [address] | | | - LABORATORY | | [...] [address] | [place] | [phone] | | [facility] | | [address] | | | - LABORATORY | | [...] [address] | [place] | [phone] | | [facility] | | [address] | | | - LABORATORY | | [...] + | [facility] | [address] | [place] | [phone] | | [facility] | | [address] | | | - LABORATORY | | [...] | mL/min/1.73m2 | [facility] | | | YEMENI | RATE,ESTIMATED | | MEDICAL | | | | mL/min/1.78e4Engp than | | CENTER - | | [...] | | MEDICAL | | | | LSIA Angelo on | | CENTER - | [...] + | [facility] | [address] | [place] | [phone] | | [facility] | | [address] | | | - LABORATORY | | [...] | | Lymphocytes | | | [facility] | | [...] | nRBC | | K/uL | [facility] | | | | | | MEDICAL [...] [address] | [place] | [phone] | | [facility] | | [address] | | | - LABORATORY | | [...] [address] | [place] | [phone] | | [facility] | | [address] | | | - LABORATORY | | [...] ST. | [address] | [place] | [phone] | | [facility] | | [address] | | | - LABORATORY | | [...] [address] | [place] | [phone] | | [facility] | | [address] | | | - LABORATORY | | [...] Pako Evans, | REFERENCE LAB | | [place], [place] [id number] Manager Of Employee Relations: Violette Mcconnell MD, Phone: | [facility] | | [phone] | | + + + + + + + + | Performing | Address | City/State/Zipcode | Phone Number | | Organization | | | | + + + + + | REFERENCE LAB | [address] | [place] [address] | [phone] | | [facility] | Drive [...] + + | Performed at: [address] [place] [address], | REFERENCE LAB | | [place], [place] [address] Manager Of Employee Relations: Ernie Lee MD, Phone: | [facility] | | [phone] | | + + + + + + + + | Performing | Address | City/State/Zipcode | Phone Number | | Organization | | | | + + + + + | REFERENCE LAB | [address] | [place] [address] | [phone] | | [facility] | Drive [...] ST. | [address] | [place], [place] | [phone] | | [facility] | | [address] | | | - LABORATORY | | [...] [address] | [place] | [phone] | | [facility] | | [address] | | | - LABORATORY | | [...] | + + + | Performed at: [place] [address], | REFERENCE LAB | | [place], [place] [address] Manager Of Employee Relations: Ernie Lee MD, Phone: | [facility] | | [phone] Performed at: [address] | | | [place] [address] Manager Of Employee Relations: Violette Mcconnell MD, | | | Phone: [phone] | | + + + + + + + + | Performing | Address | City/State/Zipcode | Phone Number | | Organization | | | | + + + + + | REFERENCE LAB | [address] | [place] [address] | [phone] | | [facility] | [facility] | | | + + + + [...] ST. | [address] | [place], [place] | [phone] | | [facility] | | [address] | | | - LABORATORY | | [...] [address] | [place] | [phone] | | [facility] | | [address] | | | - LABORATORY | | [...] + | [facility] | [address] | [place] | [phone] | | [facility] | | [address] | | | - LABORATORY | | [...] | | POC | | | [facility] | | | | | [...] + | [facility] | [address] | [place] | [phone] | | [facility] | | [address] | | | - LABORATORY | | [...] | mL/min/1.73m2 | [facility] | | | YEMENI | RATE,ESTIMATED | | MEDICAL | | | | mL/min/1.30l7Ubld than | | CENTER - | | [...] + | [facility] | [address] | [place] | [phone] | | [facility] | | [address] | | | - LABORATORY | | [...] | nRBC | | K/uL | [facility] | | | | | | MEDICAL [...] [address] | [place] | [phone] | | [facility] | | [address] | | | - LABORATORY | | [...] [address] | [place] | [phone] | | [facility] | | [address] | | | - LABORATORY | | [...] [address] | [place] | [phone] | | [facility] | | [address] | | | - LABORATORY | | [...] ST. | [address] | [place], [place] | [phone] | | [facility] | | [address] | | | - LABORATORY | | [...] [address] | [place] | [phone] | | [facility] | | [address] | | | - LABORATORY | | [...] + | [facility] | [address] | [place] | [phone] | | [facility] | | [address] | | | - LABORATORY | | [...] [address] | [place] | [phone] | | [facility] | | [address] | | | - LABORATORY | | [...] | | FILTRATION | mL/min/1.73m2 | [facility] | | | YEMENI | RATE,ESTIMATED | | MEDICAL | | | | mL/min/1.28p0Eabr than | | CENTER - | | [...] [address] | [place] | [phone] | | [facility] | | [address] | | | - LABORATORY | | [...] + | [facility] | [address] | [place] | [phone] | | [facility] | | [address] | | | - LABORATORY | | [...] [address] | [place] | [phone] | | [facility] | | [address] | | | - LABORATORY | | [...] + | [facility] | [address] | [place] | [phone] | | [facility] | | [address] | | | - LABORATORY | | [...] ST. | [address] | [place] | [phone] | | [facility] | | [address] | | | - LABORATORY | | [...] PHYSICIAN: Gopi Muñoz MD PATIENT NAME: | ID PATHOLOGY | | ARA CAMPOS GENDER: Mami [...] preparation was | | | performed by [facility] [address] [place] [address] | | | [place] [address] and [place] [address] [facility] | | | [place] [address]. Professional interpretation was performed | | | by [facility] - [facility] - [address] [facility] | | | [place] [address] (Protein Scientist: Alen Simpson, | | | .; IA#:[id number]).8 Diagnostician: Darcie López M.S., | | | CT(ASCP), [facility] Resin Painter Diagnostician: Alen Kaerney | | | Calvin HOLDEN Pathologist Electronically [...] ST. | [address] | [place], [place] | [phone] | | [facility] | | [address] | | | - LABORATORY | | [...] + | [facility] | [address] | [place] | [phone] | | [facility] | | [address] | | | - LABORATORY | | [...] [address] | [place] | [phone] | | [facility] | | [address] | | | - LABORATORY | | [...] + | [facility] | [address] | [place] | [phone] | | [facility] | | [address] | | | - LABORATORY | | [...] | | | | uIU/mL | [facility] | | | | | | MEDICAL [...] [address] | [place] | [phone] | | [facility] | | [address] | | | - LABORATORY | | [...] + | [facility] | [address] | [place] | | | [facility] | | [address] | | | - BLOOD BANK | [...] | | | | | | [employer] | | | | | [...] + | [facility] | [address] | [place], [place] | [phone] | | [facility] | | [address] | | | - LABORATORY | | [...] | Critical Result called | | Marianela [facility] | | | | to and read [...] [address] | [place] | [phone] | | [facility] | | [address] | | | - LABORATORY | | [...] + | [facility] | [address] | [place] | [phone] | | [facility] | | [address] | | | - LABORATORY | | [...] [address] | [place] | [phone] | | [facility] [facility] | | [address] | | | - LABORATORY | | [...] [address] | [place] | [phone] | | [facility] | | [address] | | | - LABORATORY | | [...] (H) | 9 - 23 mg/dL | [facility] | | | | | | [facility] | | | [facility] | [facility]ICAL | | | | | | CENTER - | | | | | | LABORATORY | | + + + + + + | Creatinine | 7.11 (H) | 0.55 - 1.02 | [facility] | | | | | mg/dL | [facility] | | | | | | MEDICAL | | | | | | CENTER - | | | | | | LABORATORY | | + + + + + + | eGFR if not | 6 (L)Comment: GLOMERULAR | >=60 | [facility] | | | | FILTRATION | mL/min/1.73m2 | [facility] | | | YEMENI | RATE,ESTIMATED | | MEDICAL | | | | mL/min/1.26s0Rvru than | | CENTER - | | [...] + | [facility] | [address] | [place] | [phone] | | [facility] | | [address] | | | - LABORATORY | | [...] [address] | [place] | [phone] | | [facility] | | [address] | | | - LABORATORY | | [...] [address] | [place] | [phone] | | [facility] | | [address] | | | - LABORATORY | | [...] | | | 50 mg, Oral, ONCE, [place] 05/21/19 at | | 19 7:55 | [...] | | | 60 Minutes, ONCE, [facility] 05/25/19 at | | | | | | | 0400, For 1 dose, Activate system | | | | | | | and mix before use., | | | | | | | Indications: Osteomyelitis | | | | | | + +---------+ +--------+-------+---+ +---+---+ | | | +---+---+ documented in this encounter
--- OUTSIDE RECORDS SUMMARY | ~2019-08-24 | XMS | Encounter Summary ---
Demographics + + + | Address | [address] | | | [place] [address] | + + + | Home Phone [...] Author | [facility] | | | and [place] | + + + | Organization | [facility] | | | and [place] | + + + | Address | Unknown | + + + | Phone | Unavailable | + + + Support + + + + + | Name | Relationship | Address | Phone | + + + + + | India Tilley | ECON | [id number] | | | | | [place], [place] | | | | | [address] | | + + + + + | Yina La | ECON | Unknown | | + + + + + | Yina Peterson | ECON | Unknown | | + + + + + | Leatha Casillas | ECON | Unknown | | + + + + + Care Team Providers + +------+ + | Care Bilingual Hr Generalist Name | Role | Phone | + +------+ + PCP | Unavailable | + +------+ + Encounter Details +--------+ + + + + | Date | Type | Department | Care Team | Description | +--------+ + + + + | 06/15/ | Telephone | [facility] | Ibis Arriola | | | 2019 | | [facility] | L, RN | | | | | [address] | | | | | | [place] | | | | | | [address] | | | | | | [phone] | | | +--------+ + + + [...]
--- OUTSIDE RECORDS SUMMARY | ~2019-08-24 | XMS | Encounter Summary ---
Demographics + + + | Address | [address] | | | [place] [address] | + + + | Home Phone [...] | Author | [facility] | | | and [place] | + + + | Organization | [facility] | | | and [place] | + + + | Address | Unknown | + + + | Phone | Unavailable | + + + Support + + + + + | Name | Relationship | Address | Phone | + + + + + | India Tilley | ECON | [phone] | | | | | [place], [place] | | | | | [address] | | + + + + + | Yina La | ECON | Unknown | | + + + + + | Yina Peterson | ECON | Unknown | | + + + + + | Leatha Casillas | ECON | Unknown | | + + + + + Care Team Providers + +------+ + | Care Head Grinder Name | Role | Phone | + +------+ + PCP | Unavailable | + +------+ + Encounter Details +--------+ + + + + | Date | Type | Department | Care Team | Description | +--------+ + + + + | 10/22/ | Hospital | [facility] | Gopi Muñoz | Chronic kidney | | 2018 | Encounter | MED CTR ULTRASOUND | M, DO [address] | disease, stage V | | | | [address] [place] | [place] | ([facility]) | | | | [place], [place] | [place], [place] | | | | | [address] | [id number] | | | | | [phone] | | | | | | | [...] | BILATERAL | | PST | ([facility]) | results section. | + +--------+ + [...]
--- OUTSIDE RECORDS SUMMARY | ~2019-08-24 | XMS | Encounter Summary ---
Demographics + + + | Address | [address] | | | [place] [address] | + + + | Home Phone [...] | Author | [facility] | | | and [place] | + + + | Organization | [facility] | | | and [place] | + + + | Address | Unknown | + + + | Phone | Unavailable | + + + Support + + + + + | Name | Relationship | Address | Phone | + + + + + | India Tilley | ECON | [phone] | | | | | [place], [place] | | | | | [address] | | + + + + + | Yina La | ECON | Unknown | | + + + + + | Yina Peterson | ECON | Unknown | | + + + + + | Leatha Casillas | ECON | Unknown | | + + + + + Care Team Providers + +------+ + | Care Popped Corn Oven Attendant Name | Role | Phone | [...] | | | | renal | PA-C [address] | [address] [place] [address] | | | | | disease | | [place] | | | | | ([facility]) | CON[facility]ATED | [address] | | | | | Procedures | [address] | [place] | | | | | MS OFFICE | [place], | [address] Phone: | | | | | OUTPATIENT | [place] [address] | [phone] | | | | | VISIT 25 | Phone: | Fax: | | | | | MINUTES | [phone] | [phone] | | | | | | Fax: | | | | | | | [phone] | | +--------+--------+ + + + + Encounter Details +--------+ + + + + | Date | Type | Department | Care Team | Description | +--------+ + + + + | 02/28/ | Off-Site | [facility] | Gopi Muñoz | End stage renal | | 2018 | Visit | NEPHROLOGY [address] | M, DO [address] | disease (HCC) | | | | [address] | [place] | (Primary Dx) | | | | [place] | [place] | | | | | [address] | [address] | | | | | [phone] | | | +--------+ + + + [...] to HTN and diabetic glomerulosclerosis at the [facility]. She also has depression, long standing [...] Will recheck her in 2 weeks. : [email or web address] Santos Stephenson MD, [facility] documented in thi s encounter Plan of Treatment Not on filedocumented as of this encounter Visit Diagnoses + + | Diagnosis | + + | End stage renal disease (HCC) - Primary End stage renal disease | + + documented in this encounter"
--- OUTSIDE RECORDS SUMMARY | ~2019-08-24 | XMS | Encounter Summary ---
Demographics + + + | Address | [address] | | | [place] [address] | + + + | Home Phone [...] | Author | [facility] | | | and [place] | + + + | Organization | [facility] | | | and [place] | + + + | Address | Unknown | + + + | Phone | Unavailable | + + + Support + + + + + | Name | Relationship | Address | Phone | + + + + + | India Tilley | ECON | [id number] | | | | | [place], [place] | | | | | [address] | | + + + + + | Yina La | ECON | Unknown | | + + + + + | Yina Peterson | ECON | Unknown | | + + + + + | Leatha Casillas | ECON | Unknown | | + + + + + Care Team Providers + +------+ + | Care Ski Maker Wood Name | Role | Phone | + +------+ + PCP | Unavailable | + +------+ + Encounter Details +--------+ + + + + | Date | Type | Department | Care Team | Description | +--------+ + + + + | 09/25/ | Hospital | [facility] | [facility], | | | 2007 - | Encounter | MED CTR CANCER | Venkatesh Forte MD [address] | | | | | [place] [address] [place] | [facility] | | | 10/13/ | | [place] | [place] [address] | | | 2007 | | [address] | [phone] | | | | | [phone] | | | +--------+ + + + [...]
--- OUTSIDE RECORDS SUMMARY | ~2019-08-24 | XMS | Encounter Summary ---
Demographics + + + | Address | [address] | | | [place] [address] | + + + | Home Phone [...] | [facility] | | | and [place] | + + + | Organization | [facility] | | | and [place] | + + + | Address | Unknown | + + + | Phone | Unavailable | + + + Support + + + + + | Name | Relationship | Address | Phone | + + + + + | India Tilley | ECON | [phone] | | | | | [place], [place] | | | | | [address] | | + + + + + | Yina La | ECON | Unknown | | + + + + + | Yina Peterson | ECON | Unknown | | + + + + + | Leatha Casillas | ECON | Unknown | | + + + + + Care Team Providers + +------+ + | Care Talent Acquisition Consultant Name | Role | Phone | + +------+ + PCP | Unavailable | + +------+ + Encounter Details +--------+ + + + + | Date | Type | Department | Care Team | Description | +--------+ + + + + | 07/07/ | Abstract | [facility] | Gopi Muñoz | | | 2017 | | NEPHROLOGY [address] | M, DO [address] | | | | | [address] [facility] [address] | [place], [facility] | | | | | [place], [place] | [place] | | | | | [address] | [address] | | | | | [phone] | | | +--------+ + + + [...]
--- OUTSIDE RECORDS SUMMARY | ~2019-08-24 | XMS | Encounter Summary ---
Demographics + + + | Address | [address] | | | [place] [address] | + + + | Home Phone [...] | [facility] | | | and [place] | + + + | Organization | [facility] | | | and [place] | + + + | Address | Unknown | + + + | Phone | Unavailable | + + + Support + + + + + | Name | Relationship | Address | Phone | + + + + + | India Tilley | ECON | [address] | | | | | [place], [place] | | | | | [address] | | + + + + + | Yina La | ECON | Unknown | | + + + + + | Yina Peterson | ECON | Unknown | | + + + + + | Leatha Casillas | ECON | Unknown | | + + + + + Care Team Providers + +------+ + | Care Bilingual Interpreter Name | Role | Phone | + +------+ + | Renato Pierson | PCP | | + +------+ + Encounter Details +--------+ + + + + | Date | Type | Department | Care Team | Description | +--------+ + + + + | 04/28/ | Orders Only | [facility] | oGpi Muñoz | | | 2019 | | NEPHROLOGY [address] | M, DO [address] [place] | | | | | [address] | [place] | | | | | [place], [place] | [place] | | | | | [address] | [address] | | | | | [phone] | | | +--------+ + + + [...]
--- OUTSIDE RECORDS SUMMARY | ~2019-08-24 | XMS | Encounter Summary ---
Demographics + + + | Address | [address] | | | [place] [address] | + + + | Home Phone [...] Author | [facility] | | | and [place] | + + + | Organization | [facility] | | | and [place] | + + + | Address | Unknown | + + + | Phone | Unavailable | + + + Support + + + + + | Name | Relationship | Address | Phone | + + + + + | India Tilley | ECON | [address] | | | | | [place], [place] | | | | | [address] | | + + + + + | Yina La | ECON | Unknown | | + + + + + | Yina Peterson | ECON | Unknown | | + + + + + | Leatha Casillas | ECON | Unknown | | + + + + + Care Team Providers + +------+ + | Care Plaster Pattern Caster Name | Role | Phone | + +------+ + PCP | Unavailable | + +------+ + Encounter Details +--------+ + + + + | Date | Type | Department | Care Team | Description | +--------+ + + + + | 06/15/ | Telephone | [facility] | Ibis Arriola | | | 2019 | | [facility] | L, RN | | | | | [address] | | | | | | [place] | | | | | | [address] | | | | | | [phone] | | | +--------+ + + + [...]
--- OUTSIDE RECORDS SUMMARY | ~2019-08-24 | XMS | Encounter Summary ---
Demographics + + + | Address | [address] | | | [place] [address] | + + + | Home Phone [...] + + | Author | [facility] | | | and [place] | + + + | Organization | [facility] | | | and [place] | + + + | Address | Unknown | + + + | Phone | Unavailable | + + + Support + + + + + | Name | Relationship | Address | Phone | + + + + + | India Tilley | ECON | [address] | | | | | [place], [place] | | | | | [address] | | + + + + + | Yina La | ECON | Unknown | | + + + + + | Yina Peterson | ECON | Unknown | | + + + + + | Leatha Casillas | ECON | Unknown | | + + + + + Care Team Providers + +------+ + | Care Property Controller Name | Role | Phone | [...] + + | 04/03/ | Telephone | [facility] | [facility] | Hospital Follow-up | | 2019 | | Internal Medicine | DO [place] [address] | | | | | Hospital[facility] [address] | | | | | [address] [place] | [place] [address] | | | | | [address] | [phone] | | | | | [phone] | | | +--------+ + + + [...]
--- OUTSIDE RECORDS SUMMARY | ~2019-08-24 | XMS | Encounter Summary ---
Demographics + + + | Address | [address] | | | [place] [address] | + + + | Home Phone [...] | [facility] [place] | | | and Kamaljitana | + + + | Organization | [facility] [place] | | | and [place] | + + + | Address | Unknown | + + + | Phone | Unavailable | + + + Support + + + + + | Name | Relationship | Address | Phone | + + + + + | India Tilley | ECON | [address] | | | | | [place], [place] | | | | | [address] | | + + + + + [...] Hemodialysis | | | | [address] | [place] [address] | Catheter Placement | | | | [place], [place] | [phone] | | | | | [address] | | | | | | [phone] | | | +--------+---------+ + + + [...] might be differ ent from the original. [place], [place] HOSPITALIST DISCHARGE SUMMARY Pt. Name/Age/: Estefani [...] 100 units/mL injection (vial) aka: [facility] COURSE: Please refer to the H&P for full details and the most recent rounding rounding (progress) n ote. In short this is a 72-year-old woman, history of hypertension, diabetes mellitus type 2 on insulin, chronic kidney disease of stage V, CAD, who presented to [facility] after be ing found down in her [...] time of arrival to send medical center [place], patient was feeling much better and was [...] n/a DISPOSITION AND DISCHARGE INSTRUCTIONS: Follow-up Information [facility] On 11/10/2017. Why: 1:00pm Contact information: [address] [place] [phone] Follow up In 3 days. Francisca Womack PA-C In 3 days. Specialty: Internal Medicine Contact information: [address] [place] [address] Hemodialysis In 1 day. Contact information: Appointment at 1:30 PM Condition: Patient being discharged with condition improved and stable Diet: renal, carbohydrate controlled Greater than 30 minutes were spent on discharge and coordination of post-hospital care. Electronically signed by: Mayelin Vega MD, 11/09/2017 11:06 [facility] Portions of this chart may have been created with [employer] voice recognition software. Occasi onal wrong-word or sound-alike substitutions may have occurred due to the inherent mckeon itations of voice recognition software. Please read the chart carefully and recognize, using context, where these substitutions have occurred documented in this encounter Discharge Instructions AttachmentsThe following attachments cannot be sent through Care Everywhere.Balancing Calci um and Phosphorus, Kidney Disease (Omani)Hemodialysis (Omani)documented in this encounte r Medications at Time [...] Muñoz, DO - 11/09/2017 6:18 PM PST [facility] [address] [place] [address] PROGRESS NOTE Pt. Name/Age/: Estefani Tilley 72 y.o. 1945 Med. Record Number: [id number] Date of admission: 11/01/2017 NEPHROLOGY HPI - [...] 3. Complete 10 days total of AB's. [facility] Nora Headley MD - 11/09/2017 4:24 PM [...] and she agreed. Nikki was raised in [place] and in [place], [place]. She has two brothers and two sisters, and h ad 4 children of her own. Her oldest child, daughter, two months ago. Nikki is gri eving her loss and teared up while talking about her. Her other children live in [place] and one son has been in [place] for 23 years. She hasn't seen him since he was arr ested and is hopeful she will get to see him next year, as he is schedule to be released at that time. 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 She has at least 4 ye ars post high school education and studied journalism. In the years prior to longterm, she worked at [employer]. Nikki's mother had chronic kidney disease and [...] picking up and going to [place] [facility] [place]. She must plan it out, and that feels antithetical to her nature. Ginger escamilla was present and attentive while she discussed her grief around losing her family member s and her lifestyle, offered supportive prevocational/rehabilitation counselor. Chayo Ramirez RN - 11/09/2017 10:00 [...] might be different from the [facility] [place] [facility] PROGRESS NOTE Patient: Estefani Tilley : 1945: Age: 72 y.o. MedRec: [id number] Admission date: 11/01/2017 Hospital day # : [...] mg/m L 0.25 mg [employer] Highway Design Engineer Nora Leo MD [NOV Hold] labetalol [...] nephrology recs -Nephro rec permacath needed for continuous churn buttermaker dialysis -continue ferrlecit and Epogen 3. CAD- no signs of ACS, EKG RBBB, trop 0.03 at OSH -Continue aspirin, lipitor 4. Hypothyroidism -TSH WNL -Continue levothyroxine 5. HTN uncontrolled -Continue Labetalol and furosemide -Continue losartan 25 mg daily PPX: HSQ FEN: renal Mayelin Vega 11/08/2017 11:50 [facility] Nora Headley MD - 11/08/2017 10:06 [...] might be different f rom the original. [facility] [place] HOSPITALIST PROGRESS NOTE Patient: Estefani Tilley : 1945: Age: 72 y.o. MedRec: [id number] Admission date: 11/01/2017 Hospital day # : [...] Procedure Component Value Units Date/Time Culture, Blood [[id number]] (Normal) Collected: 11/04/172121 Order Status: Completed Lab Status: Preliminary result Updated: 11/05/17 09 Specimen: Blood from Line Culture No growth: Monitored continually by instrument for 5 days Culture, Blood [[id number]] (Normal) Collected: 11/04/172102 Order Status: Completed Lab [...] Wednesday to determine if permacath needed for continuous churn buttermaker dialysis -continue ferrlecit and Epogen 3. CAD- no signs of ACS, EKG RBBB, trop 0.03 at OSH -Continue aspirin, lipitor 4. Hypothyroidism -TSH WNL -Continue levothyroxine 5. HTN uncontrolled -Continue Labetalol and furosemide -restart losartan 25 mg daily PPX: HSQ FEN: renal Mayelin Vega 11/07/2017 12:57 [facility] Cordell Palmer MD - 11/07/2017 9:43 AM PSTFormatting of this note might be different from the maynor rollins [facility] NEPHROLOGY progress note Patient: Estefani Tilley : [...] Darlin Moseley MD Electronically signed: 11/07/2017 9:43 [facility] NEPHROLOGY Olegario Keen M D - 11/06/2017 2:15 PM PST [facility] [place] HOSPITALIST PROGRESS NOTE Patient: Estefani Tilley : 1945: Age: 72 y.o. MedRec: [id number] Admission date: 11/01/2017 Hospital day # : [...] Procedure Component Value Units Date/Time Culture, Blood [[id number]] (Normal) Collected: 11/04/172121 Order Status: Completed Lab Status: Preliminary result Updated: 11/05/17930 Specimen: Blood from Line Culture No growth: Monitored continually by instrument for 5 days Culture, Blood [[id number]] (Normal) Collected: 11/04/172102 Order Status: Completed Lab Status: Preliminary result Updated: 11/05/17 09 Specimen: Blood from Line Culture No growth: Monitored continually by instrument for 5 days Culture, Blood [[id number]] (Normal) Collected: 11/03/17 1506 Order Status: Completed [...] to determ ine if permacath needed for group home dialysis CAD no signs of ACS, [...] senna 8.6 mg Oral BID PRN Olegario ePng 11/06/2017 14:15 [facility] Darlin Palmer M D - 11/06/2017 9:[address] [facility] NEPHROLOGY progress note Patient: Estefani Tilley : [...] Continuous Infusions: Heparin Infusion 200 Units/hr (11/06/17 3377) PRN Meds:acetaminophen, albumin, albuterol, bisacodyl, Hypoglycemia Management [...] Darlin Moseley MD Electronically signed: 11/06/2017 9:11 [facility] NEPHROLOGY Olegario Keen M D - 11/05/2017 2:08 PM PST [facility] [place] HOSPITALIST PROGRESS NOTE Patient: Estefani Tilley : 1945: Age: 72 y.o. MedRec: [id number] Admission date: 11/01/2017 Hospital day # : [...] 100 mg 100 mg Oral BID Olegario Pneg MD 100 mg a t 11/05/17 0809 [...] Procedure Component Value Units Date/Time Culture, Blood [[id number]] (Normal) Collected: 11/04/172 Order Status: Completed Lab Status: Preliminary result Updated: 11/05/17 0931 Specimen: Blood from Line Culture No growth: Monitored continually by instrument for 5 days Culture, Blood [[id number]] (Normal) Collected: 11/04/17 2103 Order Status: Completed Lab Status: Preliminary result Updated: 11/05/17 0911 Specimen: Blood from Line Culture No growth: Monitored continually by instrument for 5 days Culture, Blood [[id number]] (Normal) Collected: 11/03/17 1506 Order Status: Completed Lab Status: Preliminary result Updated: 11/04/17 0311 Specimen: Blood from Peripheral Blood Culture No growth: Monitored continually by instrument for 5 days Culture, Blood [[id number]] (Abnormal) Collected: 11/03/17 0812 Order Status: Completed Lab Status: Preliminary result Updated: 11/05/17 0751 Specimen: Blood from Arm, Left Culture Positive Blood Culture (AA) Staphylococcus coagulase negative Comment: Identification and susceptibility to follow. Probable contaminant Gram Stain Result Gram positive cocci in clusters Comment: 2 of 4 bottles positive Culture, Respiratory, Lower, Smear [[id number]] Collected: 11/03/17 0727 Order Status: Completed Lab [...] Oral BID PRN Olegario Peng 11/05/2017 14:08 [facility] Darlin Palmer M D - 11/05/2017 1:[address] [facility] NEPHROLOGY progress note Patient: Estefani Tilley : [...] Darlin Moseley MD Electronically signed: 11/05/2017 13:53 [facility] NEPHROLOGY tGopi rick , DO - 11/04/2017 6:53 PM PST [facility] [address] [place], [place] [id number] PROGRESS NOTE Pt. Name/Age/: Estefani Tilley 72 y.o. 1945 Med. Record Number: [id number] Date of admission: 11/01/2017 NEPHROLOGY HPI - [...] to high Inpt case load here at [facility]. 2. probable pyelonephritis?--Day #3 Ceftriaxone, [...] for coverage of both organisms, Q 48H. [facility] Queenie Hall RN - 11/04/2017 10:23 AM PSTPatient transferred from ICU into room 307. Oriented to room an d call light. Bed alarm set. Call light in place. Remains on 2L via nasal canula. Makes need s known. Amanda Keen MD - 11/04/2017 7:21 AM PSTFormatting of this note might be different from the origin al. [facility] [place] HOSPITALIST PROGRESS NOTE Patient: Estefani Tilley : 1945: Age: 72 y.o. MedRec: [id number] Admission date: 11/01/2017 Hospital day # : [...] Procedure Component Value Units Date/Time Culture, Blood [[id number]] (Normal) Collected: 11/03/17 1506 Order Status: Completed Lab Status: Preliminary result Updated: 11/04/17 0311 Specimen: Blood from Peripheral Blood Culture No growth: Monitored continually by instrument for 5 days Culture, Blood [[id number]] (Normal) Collected: 11/03/17 0812 Order Status: Completed Lab Status: Preliminary result Updated: 11/03/17 2041 Specimen: Blood from Arm, Left Culture No growth: Monitored continually by instrument for 5 days Culture, Respiratory, Lower, Smear [[id number]] Collected: 11/03/17 0727 Order Status: Completed Lab Status: Preliminary result Updated: 11/03/17 1028 Specimen: Respiratory from Sputum, expectorated Gram Stain Result 3+ White Blood Cells 2+ Epithelial cells 2+ Gram positive cocci 2+ Gram positive bacilli 1+ Hyphael elements Influenza A and B RNA, NAAT [[id number]] (Normal) Collected: 11/02/17 1050 Order Status: Completed Lab Status: Final result Updated: 11/02/17 1125 Specimen: Respiratory from Nares Influenza A PCR Negative Influenza B PCR Negative Culture, Urine [[id number]] Collected: 11/02/17 0740 Order Status: Completed Lab Status: Preliminary result Updated: 11/03/17 1013 Specimen: Urine Culture >100,000 CFU/ml Lactose Fermenting Gram Negative Bacilli Comment: Identification and susceptibility to follow. Culture, Blood [[id number]] (Normal) Collected: 11/02/17 0024 Order Status: Completed Lab Status: Preliminary result Updated: 11/02/17 1241 Specimen: Blood from Peripheral Blood Culture No growth: Monitored continually by instrument for 5 days Culture, Blood [[id number]] (Abnormal) Collected: 11/02/17 0019 Order Status: Completed [...] 15:14 by Edison Short. Narrative: Culture, MRSA [[id number]] Collected: 11/01/172145 Order Status: Completed Lab Status: [...] in chains -Repeat UA (+), urine culture >143115 GNB lactose fermenting -Continue ceftriaxone started 11/02, [...] Q30 Min PRN Olegario Peng 11/04/2017 7:21 [facility] Nick Aguillon, RN - 0 11/04/2017 1:06 AM PSTDialysis treatment started and Arterial pressures running in the -400s , trouble shooting ineffective, arterial and venous lines switched, pressures now -50s. Shama sarabia is running appropriately at this moment, will continue monitoring. Nick Guallpa Gopi Mckenna DO - 11/03/2017 11:20 AM PST [facility] [address] [place] [address] PROGRESS NOTE Pt. Name/Age/: Estefani Tilley 72 y.o. 1945 Med. Record Number: [id number] Date of admission: 11/01/2017 NEPHROLOGY HPI - [...] anemia. 4. Encourage ambulation to minimize atelectasis. [facility] Olegario Keen MD - 11/03/2017 7:07 AM PST [facility] [place] HOSPITALIST PROGRESS NOTE Patient: Estefani Tilley : 1945: Age: 72 y.o. MedRec: [id number] Admission date: 11/01/2017 Hospital day # : [...] PH UA 6.0 5.0 - 8.0 Specific [place] 1.010 1.001 - 1.030 PROTEIN UA 100 [...] Date/Time Influenza A and B RNA, NAAT [[id number]] (Normal) Collected: 11/02/17 1050 Order Status: Completed Lab Status: Final result Updated: 11/02/17 1125 Specimen: Respiratory from Nares Influenza A PCR Negative Influenza B PCR Negative Culture, Urine [[id number]] Collected: 11/02/17 0740 Order Status: Sent Lab Status: In process Updated: 11/02/17 0758 Specimen: Urine Culture, Blood [[id number]] (Normal) Collected: 11/02/17 0024 Order Status: Completed Lab Status: Preliminary result Updated: 11/02/17 1241 Specimen: Blood from Peripheral Blood Culture No growth: Monitored continually by instrument for 5 days Culture, Blood [[id number]] (Abnormal) Collected: 11/02/17 0019 Order Status: Completed Lab Status: Preliminary result Updated: 11/02/17 1515 Specimen: Blood from Peripheral Blood Culture Positive Blood Culture (AA) Gram Stain Result Gram positive cocci in chains Comment: One of four Blood Culture bottles POSITIVE. Critical Result called to and read b ack by Kristen Irving on 11/02/2017 at 15:14 by Edison Short. Narrative: Culture, MRSA [[id number]] Collected: 11/01/17 2146 Order Status: Sent Lab [...] Oral BID PRN Olegario Peng 11/03/2017 7:08 [facility] oltangela, Ta Restrepo, [facility] - 11/02/2017 3:43 PM PST PHARMACY SERVICES: [...] and directions X Pharmacy list names: [facility] LEAD RUBY ON RAILS DEVELOPER (Prescription Monitoring Program) [facility] information X Care Everywhere [...] Prior to Admission Sig: Patient taking differently ENTRY LEVEL SALES CONSULTANT as: Atorvastatin 20mg 1 tab by mouth nightly 1 tab by mouth every morning Calcium- vitamin d 600-400mg 1 tab by mouth twice daily 1 tab by mouth every morning Duloxetine 30mg DR 1 capsule by mouth daily Patient has not started this medication ENTRY LEVEL SALES CONSULTANT, cortés s not filled at pharmacy [id number] 200mg by mouth twice daily 200mg by mouth every morning labetalol 200mg 1 tab by mouth twice daily Patient has not started this medication ENTRY LEVEL SALES CONSULTANT, has not filled at pharmacy Best possible ENTRY LEVEL SALES CONSULTANT medication list after pharmacy review: Prior to [...] performed and electronically signed by Puja Whitman, Asphalt Paving Foreman 2017 15:31 Electronically signed by: Ta Ronquillo [facility] 11/02/2017 15:40 Olegario Keen MD - 11/02/2017 7:21 AM PST [facility] [place] HOSPITALIST PROGRESS NOTE Patient: Estefani Tilley : 1945: Age: 72 y.o. MedRec: [id number] Admission date: 11/01/2017 Hospital day # : [...] Nightly Rupal Laguna MD 20 mg at 7241 bisacodyl (DULCOLAX) suppository 10 mg 10 mg [...] Procedure Component Value Units Date/Time Culture, Blood [[id number]] Collected: 11/02/1723 Order Status: Sent Lab Status: In process Updated: 11/02/1732 Specimen: Blood from Peripheral Blood Culture, Blood [[id number]] Collected: 11/02/1718 Order Status: Sent Lab Status: In process Updated: 11/02/1732 Specimen: Blood from Peripheral Blood Culture, MRSA [[id number]] Collected: 11/01/172145 Order Status: Sent Lab Status: [...] 0.9% Intravenous Continuous Olegario Peng 11/02/2017 7:38 [facility] documented in this e ncounter Plan [...] PERMACATH | | PST | ([facility]) | | + +--------+ + + + [...] ST. | [address] | [place] | [phone] | | [facility] | | [address] | | | - LABORATORY | | [...] [address] | [place] | [phone] | | [facility] | | [address] | | | - LABORATORY | | [...] [address] | [place] | [phone] | | [facility] | | [address] | | | - LABORATORY | | [...] (H) | 0.60 - 1.30 | [facility] | | | | | mg/dL | [facility] | | | | | | MEDICAL | | | | | | CENTER - | | | | | | LABORATORY | | + + + + + + | eGFR if not | 15 (L)Comment: | >=60 | [facility] | | | | GLOMERULAR FILTRATION | mL/min/1.73m2 | [facility] | | | [place] | RATE,ESTIMATED | | MEDICAL | | | | mL/min/1.61a5Zizz than | | CENTER - | | [...] [address] | [place] | [phone] | | [facility] | | [address] | | | - LABORATORY | | [...] + | [facility] | [address] | [place] | [phone] | | [facility] | | [address] | | | - LABORATORY | | [...] [address] | [place] | [phone] | | [facility] | | [address] | | | - LABORATORY | | [...] [address] | [place] | [phone] | | [facility] | | [address] | | | - LABORATORY | | [...] + | [facility] | [address] | [place] | [phone] | | [facility] | | [address] | | | - LABORATORY | | [...] [address] | [place] | [phone] | | [facility] | | [address] | | | - LABORATORY | | [...] + | [facility] | [address] | [place] | [phone] | | [facility] | | [address] | | | - LABORATORY | | [...] mL/min/1.73m2 | [facility] | | | [place] | RATE,ESTIMATED | | MEDICAL | | | | mL/min/1.88h2Afnb than | | CENTER - | | [...] ST. | [address] | [place] | [phone] | | [facility] | | [address] | | | - LABORATORY | | [...] [address] | [place] | [phone] | | [facility] | | [address] | | | - LABORATORY | | [...] | [facility] | [address] | [place] | [phone] | | [facility] | | [address] | | | - LABORATORY | | [...] [address] | [place] | [phone] | | [facility] | | [address] | | | - LABORATORY | | [...] | + + + + + | [facility] | [address] | [place] | [phone] | | [facility] | | [address] | | | - LABORATORY | | [...] + | [facility] | [address] | [place] | [phone] | | [facility] | | [address] | | | - LABORATORY | | [...] + | [facility] | [address] | [place] | [phone] | | [facility] | | [address] | | | - LABORATORY | | [...] ST. | [address] | [place] | [phone] | | [facility] | | [address] | | | - LABORATORY | | [...] [address] | [place] | [phone] | | [facility] | | [address] | | | - LABORATORY | | [...] (H) | 7 - 18 mg/dL | [facility] | | | | | | [facility] | | | | | | MEDICAL | | | | | | CENTER - | | | | | | LABORATORY | | + + + + + + | Creatinine | 2.24 (H) | 0.60 - 1.30 | [facility] | | | | | mg/dL | [facility] | | | | | | MEDICAL | | | | | | CENTER - | | | | | | LABORATORY | | + + + + + + | eGFR if not | 22 (L)Comment: | >=60 | [facility] | | | | GLOMERULAR FILTRATION | mL/min/1.73m2 | [facility] | | | [place] | RATE,ESTIMATED | | MEDICAL | | | | mL/min/1.31k7Enkh than | | CENTER - | | [...] + | [facility] | [address] | [place] | [phone] | | [facility] | | [address] | | | - LABORATORY | | [...] [address] | [place] | [phone] | | [facility] | | [address] | | | - LABORATORY | | [...] [address] | [place] | [phone] | | [facility] | | [address] | | | - LABORATORY | | [...] + | [facility] | [address] | [place] | [phone] | | [facility] | | [address] | | | - LABORATORY | | [...] [address] | [place] | [phone] | | [facility] | | [address] | | | - LABORATORY | | [...] [address] | [place] | [phone] | | [facility] | | [address] | | | - LABORATORY | | [...] [address] | [place] | [phone] | | [facility] | | [address] | | | - LABORATORY | | [...] | | Lymphocytes | | | [facility] | | [...] [address] | [place] | [phone] | | [facility] | | [address] | | | - LABORATORY | | [...] mL/min/1.73m2 | [facility] | | | [place] | RATE,ESTIMATED | | MEDICAL | | | | mL/min/1.05x5Rvll than | | CENTER - | | [...] [address] | [place] | [phone] | | [facility] | | [address] | | | - LABORATORY | | [...] [address] | [place] | [phone] | | [facility] | | [address] | | | - LABORATORY | | [...] | [facility] | [address] | [place] | [phone] | | [facility] | | [address] | | | - LABORATORY | | [...] [address] | [place] | [phone] | | [facility] | | [address] | | | - LABORATORY | | [...] Patient Name ANDRES | | | [facility] Room Number 307 EMILE | | | Patient Number [id number] Date of Study | | | 11/05/2017 Visit Number [id number] | | | Referring Physician AUDI ANDRADE Number Date of | | | 1945 Periodicals Clerk Jasbir Gatica | | | Age 72 year(s) Interpreting | | | GENIE WARREN | | | Alteration Inspector CHAYO | | | SHERRIE RADFORD | | | | | | Gender Female Nurse | | | Stress Manager Managed Care | | | Procedure Type of Study [...] valve cusps without reducedexcursion.Tricuspid | | | NbvnlGzjy-qz-qvfsjsuf tricuspid regurgitation suggestive of a mildly | [...] | | | EF | | | Kvpkcloha98% Left Ventricle Diastolic Dimension: 4.77 cm Septum [...] |excursion. | | |Tricuspid Valve | | |Wznb-tv-bchubsnl tricuspid regurgitation suggestive of a mildly elevated [...] Volume: 60.67 ml | | | EF Zpdktyvds54% | | | | | | Left [...] Report | | (TTE) Demographics Patient Name [facility] Room Number 307 | | EMILE Patient Number [id number] Date of Study 11/05/2017 Visit Number | | [id number] Referring Physician AUDI ANDRADE | | Number Date of 1945 Periodicals Clerk Jasbir Gatica Age | | 72 year(s) Interpreting GENIE WARREN | | Alteration Inspector CHAYO | | SHERRIE RADFORD MD Gender [...] aortic valve cusps | | without reducedexcursion.Tricuspid MxexxFnks-nm-tvjivoty tricuspid regurgitation | | suggestive of a [...] LA Volume: 60.67 ml | | EF Jijemhyem40% Left Ventricle Diastolic Dimension: 4.77 | | [...] reduced | |excursion. | |Tricuspid Valve | |Hpqc-wu-aioilirn tricuspid regurgitation suggestive of a mildly elevated [...] LA Volume: 60.67 ml | | EF Mpyauajvg20% | | | | Left Ventricle | [...] [address] | [place] | [phone] | | [facility] | | [address] | | | - LABORATORY | | [...] | | POC | | | [facility] | | [...] [address] | [place] | [phone] | | [facility] | | [address] | | | - LABORATORY | | [...] [address] | [place] | [phone] | | [facility] | | [address] | | | - LABORATORY | | [...] [address] | [place] | [phone] | | [facility] | | [address] | | | - LABORATORY | | [...] + | [facility] | [address] | [place] | [phone] | | [facility] | | [address] | | | - LABORATORY | | [...] mL/min/1.73m2 | [facility] | | | [place] | RATE,ESTIMATED | | MEDICAL | | | | mL/min/1.28n8Rhhg than | | CENTER - | | [...] + | [facility] | [address] | [place] | [phone] | | [facility] | | [address] | | | - LABORATORY | | [...] [address] | [place] | [phone] | | [facility] | | [address] | | | - LABORATORY | | [...] + | [facility] | [address] | [place] | [phone] | | [facility] | | [address] | | | - [...] [address] | [place] | [phone] | | [facility] | | [address] | | | - LABORATORY | | [address] | [place] | [phone] | | [facility] | | [address] | | | - LABORATORY | | [...] [address] | [place] | [phone] | | [facility] | | [address] | | | - LABORATORY | | [...] ST. | [address] | [place] | [phone] | | [facility] | | [address] | | | - [...] [address] | [place] | [phone] | | [facility] | | [address] | | | - LABORATORY | | | | + + + + + Magnesium (11/04/2017 4:19 AM PST) + +-------+ + + + | Component | Value | Ref Range | Performed | Pathologist | | | | | At | Signature | + +-------+ + + + | Magnesium | 1.9 | 1.8 - 2.5 mg/dL | [facility] | | | | | | [facility] | | | | | [...] + | [facility] | [address] | [place] | [phone] | | [facility] | | [address] | | | - LABORATORY | | [...] ST. | [address] | [place], [place] | [phone] | | [facility] | | [address] | | | - [...] | [facility] | | | [place] | RATE,ESTIMATED | | MEDICAL | | | | mL/min/1.24f4Ggvt than | | CENTER - | | [...] | | | | | mg/dL | [facility] | | | | | [...] [address] | [place] | [phone] | | [facility] | | [address] | | | - LABORATORY | | [...] [address] | [place] | [phone] | | [facility] | | [address] | | | - LABORATORY | | [...] + | [address] | [address] | [place] | [phone] | | [facility] | | [address] | | | - LABORATORY | | [...] [address] | [place] | [phone] | | [facility] | | [address] | | | - LABORATORY | | [...] [address] | [place] | [phone] | | [facility] | | [address] | | | - LABORATORY | | [...] | Procedure Note | + + | Jluian, Rad Results In - 11/03/2017 4:28 PM [...] [address] | [place] | [phone] | | [facility] | | [address] | | | - LABORATORY | | [...] | | | POC | | | [facility] | | | | | [...] + | [facility] | [address] | [place] | [phone] | | [facility] | | [address] | | | - LABORATORY | | [...] ST. | [address] | [place] | [phone] | | [facility] | | [address] | | | - LABORATORY | | [...] [address] | [place] | [phone] | | [facility] | | [address] | | | - LABORATORY | | [...] + | [facility] [facility] | [address] | [place], [place] | [phone] | | [facility] | | [address] | | | - LABORATORY | | [...] + | [facility] | [address] | [place] | [phone] | | [facility] | | [address] | | | - LABORATORY | | [...] + | [facility] | [address] | [place] | [phone] | | [facility] | | [address] | | | - LABORATORY | | [...] [address] | [place] | [phone] | | [facility] | | [address] | | | - LABORATORY | | [...] + | Performed at: 01 - [facility] [address], | REFERENCE LAB | | [place], [place] [id number] Body Finisher: Ernie Lee MD, Phone: | [facility] - TETE | | [phone] | | + + + + + + + + | Performing | Address | City/State/Zipcode | Phone Number | | Organization | | | | + + + + + | REFERENCE LAB | [address] | [place] [address] | [phone] | | [facility] | Drive [...] [address] | [place] | [phone] | | [facility] | | [address] | | | - LABORATORY | | [...] + | [facility] | [address] | [place] | [phone] | | [facility] | | [address] | | | - LABORATORY | | [...] [address] | [place] | [phone] | | [facility] | | [address] | | | - LABORATORY | | [...] test | | | | | | ([id number]). | | | | + + + + + + + + | Specimen | + + | Blood | + + + + + | Narrative | Performed At | + + + | Performed at: - [place] [address], | REFERENCE LAB | | [place], [place] [address] Body Finisher: Ernie Lee MD, Phone: | [facility] TETE | | [phone] | | + + + + + + + + | Performing | Address | City/State/Zipcode | Phone Number | | Organization | | | | + + + + + | REFERENCE LAB | [address] | [place] [address] | [phone] | | [facility] | Drive [...] mL/min/1.73m2 | [facility] | | | [place] | RATE,ESTIMATED | | MEDICAL | | | | mL/min/1.79f7Qkpk than | | CENTER - | | [...] [address] | [place] | [phone] | | [facility] | | [address] | | | - LABORATORY | | [...] | [facility] [address] [facility] | [address] | [place] | [phone] | | [facility] | | [address] | | | - LABORATORY | | [...] + | [facility] | [address] | [place] | [phone] | | [facility] | | [address] | | | - LABORATORY | | [...] [address] | [place] | [phone] | | [facility] | | [address] | | | - [...] + | [facility] | [address] | [place] | [phone] | | [facility] | | [address] | | | - LABORATORY | | [...] the anterior bladder, possibly related to recent [place] | | | catheterization, please correlate clinically [...] ST. | [address] | [place], [place] | [phone] | | [facility] | | [address] | | | - LABORATORY | | [...] [address] | [place] | [phone] | | [facility] | | [address] | | | - LABORATORY | | [...] | [facility] [address] [facility] | [address] | [place] | [phone] | | [facility] | | [address] | | | - LABORATORY | | [address] | [place] | [phone] | | [facility] | | [address] | | | - LABORATORY | | [...] [address] | [place] | [phone] | | [facility] | | [address] | | | - LABORATORY | | [...] [address] | [place] | [phone] | | [facility] | | [address] | | | - LABORATORY | | [...] [address] | [place] | [phone] | | [facility] | | [address] | | | - LABORATORY | | [...] [address] | [place] | [phone] | | [facility] | | [address] | | | - LABORATORY | | [...] + | [facility] | [address] | [place] | [phone] | | [facility] | | [address] | | | - [...] [address] | [place] | [phone] | | [facility] | | [address] | | | - LABORATORY | | [...] [address] | [place] | [phone] | | [facility] | | [address] | | | - LABORATORY | | [...] [address] | [place] | [phone] | | [facility] | | [address] | | | - LABORATORY | | [...] ST. | [address] | [place] | [phone] | | [facility] | | [address] | | | - LABORATORY | | [...] [address] | [place] | [phone] | | [facility] | | [address] | | | - LABORATORY | | [...] + | [facility] | [address] | [place] | [phone] | | [facility] | | [address] | | | - LABORATORY | | [...] mL/min/1.73m2 | [facility] | | | [place] | RATE,ESTIMATED | | MEDICAL | | | | mL/min/1.37n3Yjmn than | | CENTER - | | [...] + | [facility] | [address] | [place] | [phone] | | [facility] | | [address] | | | - LABORATORY | | [...] [address] | [place] | [phone] | | [facility] | | [address] | | | - LABORATORY | | [...] - 1.030 | [facility] | | | [place] | | | [facility] | | [...] + | [facility] | [address] | [place] | [phone] | | [facility] | | [address] | | | - LABORATORY | | [...] | | | | | | [employer] | | | | | [...] + | [facility] | [address] | [place] | [phone] | | [facility] | | [address] | | | - LABORATORY | | [...] [address] | [place] | [phone] | | [facility] | | [address] | | | - LABORATORY | | [...] + | [facility] | [address] | [place] | [phone] | | [facility] | | [address] | | | - LABORATORY | | [...] + | [facility] | [address] | [place] | [phone] | | [facility] | | [address] | | | - LABORATORY | | [...] [address] | [place] | [phone] | | [facility] | | [address] | | | - LABORATORY | | [...] [address] | [place] | [phone] | | [facility] | | [address] | | | - LABORATORY | | [...] + | [facility] | [address] | [place] | [phone] | | [facility] | | [address] | | | - LABORATORY | | [...] | third generation TSH | uIU/mL | [facility] | | | | test. [...] [address] | [place] | [phone] | | [facility] | | [address] | | | - LABORATORY | | [...] | | | | | | [employer] | | | | | [...] [address] | [place] | [phone] | | [facility] | | [address] | | | - LABORATORY | | [...] [address] | [place] | [phone] | | [facility] | | [address] | | | - LABORATORY | | [...] [address] | [place] | [phone] | | [facility] | | [address] | | | - LABORATORY | | [...] not | 12 (L)Comment: | >=60 | [facility] | | | | GLOMERULAR FILTRATION | mL/min/1.73m2 | [facility] | | | [place] | RATE,ESTIMATED | | MEDICAL | | | | mL/min/1.53h3Arck than | | CENTER - | | [...] + | [facility] | [address] | [place] | [phone] | | [facility] | | [address] | | | - LABORATORY | | [...] ST. | [address] | [place], [place] | [phone] | | [facility] | | [address] | | | - LABORATORY | | [...] [address] | [place] | [phone] | | [facility] | | [address] | | | - LABORATORY | | [...] [address] | [place] | [phone] | | [facility] | | [address] | | | - LABORATORY | | [...] for comparison only - no result from [place]. | [facility] | + + + [...] | | | | | | use Hanson 10/325 if ordered. If | | | [...] | | | | | | | 7024-2932 Use NIGHT DOSE for | | | | | | | doses scheduled: HS, 3AM, | | | | | | | Nighttime 7881-7744, | | | | | | + [...] scheduled: AC, | | | NPO, Daytime 5246-2798 Use NIGHT | | | DOSE for doses scheduled: | | | HS, 3AM, Nighttime 9712-4479, | | + +---+ | | | [...] | | | | | | Infiltration, HEALTH SCIENCES MANAGER, Starting | | | | | | [...] | | | DAILY, First dose on [facility] 11/04/17 | | AM PST | [...]
--- OUTSIDE RECORDS SUMMARY | ~2019-08-24 | XMS | Encounter Summary ---
Demographics + + + | Address | [address] | | | [place] [address] | + + + | Home Phone [...] [facility] | | | and [place] | + + + | Organization | [facility] | | | and [place] | + + + | Address | Unknown | + + + | Phone | Unavailable | + + + Support + + + + + | Name | Relationship | Address | Phone | + + + + + | India Tilley | ECON | [address] | | | | | [place], [place] | | | | | [address] | | + + + + + | Yina La | ECON | Unknown | | + + + + + | Yina Peterson | ECON | Unknown | | + + + + + | Leatha Casillas | ECON | Unknown | | + + + + + Care Team Providers + +------+ + | Care Bilingual Sales Consultant Name | Role | Phone | + +------+ + | Renato Pierson PERFORMANCE MAKEUP ARTIST | PCP | | + +------+ + [...] | al disc | [address] | [place], [place] | | | | | (pyogenic), | [place], [place] | [address] | | | | | thoracic | [address] | Phone: | | | | | region ([facility]) | Phone: | [phone] | | | | | | [phone] | Fax: | | | | | 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: | [phone] | | | | | s of | [phone] | | | | | | thoracic | | | | | | | vertebra | | | | | | | ([facility]) | | | | | | | [...] + + | 05/22/ | Hospital | [facility] | Fabiana [place], | No Show | | 2019 | Encounter | [facility] MRI | Nick Apodaca MD | | | | | [address] | [address] | | | | | [place], [place] | [place] [address] | | | | | [address] | [phone] | | | | | [phone] | | | +--------+ + + + [...]
--- OUTSIDE RECORDS SUMMARY | ~2019-08-24 | XMS | Encounter Summary ---
Demographics + + + | Address | [address] | | | [place] [address] | + + + | Home Phone [...] Author | [facility] | | | and [place] | + + + | Organization | [facility] | | | and [place] | + + + | Address | Unknown | + + + | Phone | Unavailable | + + + Support + + + + + | Name | Relationship | Address | Phone | + + + + + | India T[place]ley | ECON | [address] | | | | | [place], [place] | | | | | [address] | | + + + + + | Yina La | ECON | Unknown | | + + + + + | Yina Peterson | ECON | Unknown | | + + + + + | Leatha Casillas | ECON | Unknown | | + + + + + Care Team Providers + +------+ + | Care Commercial Producer Name | Role | Phone | [...] | al disc | [address] | [place], [place] | | | | | (pyogenic), | [place], [place] | [address] | | | | | thoracic | [address] | Phone: | | | | | region ([facility]) | Phone: | [phone] | | | | | | [phone] | Fax: | | | | | 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: | [phone] | | | | | s of | [phone] | | | | | | thoracic [...] | s of | KYRIE HERNANDEZ | HERMELIDNA CHILD | | | | | vertebra, | [place], | [place] | | | | | site | [place] [address] | [address] | | | | | unspecified | Phone: | Phone: | | | | | ([facility]) | [phone] | [phone] | | | | | Procedures | Fax: | Fax: | | | | | [place] OFFICE | [phone] | [phone] | | | | | OUTPATIENT | | | | | | | NEW 60 | | | | | | | MINUTES | | | + +--------+ + + + + Encounter Details +--------+---------+ + + + | Date | Type | Department | Care Team | Description | +--------+---------+ + + + | 05/18/ | Office | 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 Complete MRI as soon as possible. 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 History is obtained from: Patient, limited medical records from outside referring provider. The patient presents to clinic referred by Dr. Mat Brooks from orthopedic surgery in [facility]. 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 Medical record review indicates that the patient's was admitted to [facility] [place] from March 24, 2019 through March 31, [...] approximately a week a go by her rehabilitation case coordinator. The patient states that she was on [...] W/CANNULATED SCREWS; Surgeon: Scott Koroma MD; Location: [facility] MAIN OR HYSTERECTOMY MASTECTOMY 2006 left ear NOSE SURGERY 2009 OTHER SURGICAL HISTORY Right 03/28/2019 Procedure: TUNNEL PICC LINE PLACEMENT-6fr 22cm BARD Power Line; Surgeon: Jose Jiménez MD; Location: [facility] INTERVENTIONAL RADIOLOGY REMOVAL TUNNELED CATHETER Right 04/04/[address] Stephenson SHUNT PLACEMENT/INSERTION N/A 11/08/2017 Procedure: Tunneled Hemodialysis Catheter Placement; Surgeon: Nora Leo MD; Location : [facility] MAIN OR SHUNT PLACEMENT/INSERTION Right 02/04/2018 Procedure: INSERTION SHUNT HEMODIALYSIS W/ PERMACATH; Surgeon: Heather Navarro MD; L ocation: [facility] MAIN OR VEIN SURGERY Right 01/04/2018 Procedure: Right Transposed Basilic Vein to Proximal Radial Artery; Surgeon: Santos Stephenson MD, FACS; Location: [facility] MAIN OR Social History Socioeconomic [...] INFLUENZA QUADR W/PRES (PED/ADOL/ADULT) MULTIDOSE 06/27/2014 INFLUENZA, [id number], UNSPECIFIED 08/28/2009 INFLUENZA, UNSPECIFIED FORMULATION 07/03/1992, 06/18/1993, [...] REFERENCE | | | | performed at [facility];[address] | | LAB | | | | [facility] | | [facility] | | | | [address];[place] [address] | | LABORATORY | | + + + + + + + + | Specimen | + + | Blood | + + + + + + + | Performing | Address | City/State/Zipcode | Phone Number | | Organization | | | | + + + + + | REFERENCE LAB | [address] [facility] | [place] [address] | [phone] | | [facility] | Blvd[address] | | | | LABORATORY | | | | + + + + + | REFERENCE LAB | [address] [facility] | [place] [address] | | | [facility] | Blvd[address] | [...] REFERENCE | | | | performed at [facility];[address] | | LAB | | | | [place] | | [facility] | | | | Blvd;[place] [address] | | LABORATORY | | + + + + + + + + | Specimen | + + | Blood | + + + + + + + | Performing | Address | City/State/Zipcode | Phone Number | | Organization | | | | + + + + + | REFERENCE LAB | [address] [place] [address] | [place] [address] | [phone] | | [facility] | Blvd[address] | | | | LABORATORY | | | | + + + + + | REFERENCE LAB | [address] [place] [address] | [place] [address] | | | [facility] | Blvd. | [...] | | | | | performed at [facility];[address] | | | | | | [facility] | | | | | | Blvd;[place] [address] | | | | | | | | | | + + + + + + + + | Specimen | + + | Blood | + + + + + + + | Performing | Address | City/State/Zipcode | Phone Number | | Organization | | | | + + + + + | REFERENCE LAB | [address] [facility] | [place] [address] | [phone] | | [facility] | Blvd[address] | | | | LABORATORY | | | | + + + + + | REFERENCE LAB | [address] [place] [address] | [place] [address] | | | [facility] | Blvd. | [...] | | | Absolute | performed at [facility];[address] | K/uL | LAB | | | | [place] | | [facility] | | | | [address];[place] [address] | | LABORATORY | | + + + + + + + + | Specimen | + + | Blood | + + + + + + + | Performing | Address | City/State/Zipcode | Phone Number | | Organization | | | | + + + + + | REFERENCE LAB | [address] | [place] [address] | [phone] | | [facility] | Blvd[address] | | | | LABORATORY | | | | + + + + + | REFERENCE LAB | [address] [facility] | [place] [address] | | | [facility] | Bl[address] | [...] | | LAB | | | | Blvd;[place], [place] | | [facility] | | | | [id number]: Testing | | LABORATORY | | | | performed at [facility], [address] | | | | [address], | | | | | | [place] [address] | | | | + + + [...] + + | REFERENCE LAB | [address] | [place] [address] | [phone] | | [facility] | Blvd[address] | | | | LABORATORY | | | | + + + + + | REFERENCE LAB | [address] | [place] [address] | | | [facility] | Bl[address] | [...]
--- OUTSIDE RECORDS SUMMARY | ~2019-08-24 | XMS | Encounter Summary ---
Demographics + + + | Address | [address] | | | [place] [address] | + + + | Home Phone [...] Author | [facility] | | | and [place] | + + + | Organization | [facility] | | | and [place] | + + + | Address | Unknown | + + + | Phone | Unavailable | + + + Support + + + + + | Name | Relationship | Address | Phone | + + + + + | India Tilley | ECON | [address] | | | | | [place], [...] Team Providers + +------+ + | Care Dope Pourer Name | Role | Phone | + +------+ + PCP | Unavailable | + +------+ + Encounter Details +--------+ + + + + | Date | Type | Department | Care Team | Description | +--------+ + + + + | 05/12/ | Hospital | [facility] | | | | 2006 - | Encounter | [facility] | | | | | | CENTER [facility] [address] | | | | 05/13/ | | [place] | | | | 2006 | | [address] | | | | | | [phone] | | | +--------+ + + + [...]
--- OUTSIDE RECORDS SUMMARY | ~2019-08-24 | XMS | Encounter Summary ---
Demographics + + + | Address | [address] | | | [place] [address] | + + + | Home Phone [...] | Author | [facility] | | | and [place] | + + + | Organization | [facility] | | | and [place] | + + + | Address | Unknown | + + + | Phone | Unavailable | + + + Support + + + + + | Name | Relationship | Address | Phone | + + + + + | India Tilley | ECON | [address] | | | | | [place], [place] | | | | | [address] | | + + + + + | Yina La | ECON | Unknown | | + + + + + | Yina Peterson | ECON | Unknown | | + + + + + | Leatha Casillas | ECON | Unknown | | + + + + + Care Team Providers + +------+ + | Care Feather Duster Winder Name | Role | Phone | + +------+ + PCP | Unavailable | + +------+ + Encounter Details +--------+ + + + + | Date | Type | Department | Care Team | Description | +--------+ + + + + | 10/21/ | Abstract | [facility] | Santos Stephenson | | | 2018 | | SURGERY [address] | MD Kinga, FACS [address] | | | | | [address] [place], [place] | [address] [facility] | | | | | [address] | [place] [address] | | | | | [phone] | [phone] | | | | | | | [...]
--- OUTSIDE RECORDS SUMMARY | ~2019-08-24 | XMS | Encounter Summary ---
Demographics + + + | Address | [address] | | | [place] [address] | + + + | Home Phone [...] Author | [facility] | | | and [place] | + + + | Organization | [facility] | | | and [place] | + + + | Address | Unknown | + + + | Phone | Unavailable | + + + Support + + + + + | Name | Relationship | Address | Phone | + + + + + | India Tilley | ECON | [address] | | | | | [place], [place] | | | | | [address] | | + + + + + | Yina La | ECON | Unknown | | + + + + + | Yina Peterson | ECON | Unknown | | + + + + + | Leatha Casillas | ECON | Unknown | | + + + + + Care Team Providers + +------+ + | Care Assembling Machine Operator Name | Role | Phone [...] + + | 02/04/ | Telephone | [facility] | Santos Stephenson | Post Op (dialysis | | 2017 | | SURGERY [address] | MD Kinga, FACS [address] | catheter fell out. ) | | | | [place], [place] | [address] [facility] | | | | | [address] | [place] [address] | | | | | [phone] | [phone] | | | | | | | [...]
--- OUTSIDE RECORDS SUMMARY | ~2019-08-24 | XMS | Encounter Summary ---
Demographics + + + | Address | [address] | | | [place] [address] | + + + | Home Phone [...] | Author | [facility] | | | and [place] | + + + | Organization | [facility] | | | and [place] | + + + | Address | Unknown | + + + | Phone | Unavailable | + + + Support + + + + + | Name | Relationship | Address | Phone | + + + + + | India Tilley | ECON | [address] | | | | | [place], [place] | | | | | [address] | | + + + + + | Yina La | ECON | Unknown | | + + + + + | Yina Peterson | ECON | Unknown | | + + + + + | Leatha Casillas | ECON | Unknown | | + + + + + Care Team Providers + +------+ + | Care House Decorator Name | Role | Phone | [...] | renal | PA-C [address] | [address] | | | | | disease | [place] | [place], [place] | | | | | ([facility]) | [place] | [address] [facility] | | | | | Procedures | [address] | [facility] [place] | | | | | [place] ESRD | [facility] | [id number] Phone: | | | | | RELATED [address] | [place] | [phone] | | | | | MONTHLY | [phone] | Fax: | | | | | 20&/> YR OLD | Phone: | [phone] | | | | | 4/> VISITS | [phone] | | | | | | | Fax: | | | | | | | [phone] | | + +--------+ + + + + Encounter Details +--------+ + + + + | Date | Type | Department | Care Team | Description | +--------+ + + + + | 05/08/ | Off-Site | [facility] | Gopi Muñoz | Osteomyelitis, | | 2019 | Visit | NEPHROLOGY [address] | M, DO [address] | unspecified site, | | | | [address] | [place], [place] [address] | unspecified type | | | | [place], [place] | [facility], [place] | (HCC) (Primary Dx); | | | | [phone] | [id number] | ESRD (end stage | | | | [phone] | | renal disease) on | | [...] not seen.schedule an office visit will at [facility], 2019.] documented in thi s encounter Plan of Treatment Not on filedocumented as of this encounter Visit Diagnoses + + | Diagnosis | + + | Osteomyelitis, unspecified site, unspecified type ([facility]) - Primary | + + | ESRD (end stage renal disease) on dialysis ([facility]) End stage renal disease | + + documented in this encounter"
--- OUTSIDE RECORDS SUMMARY | ~2019-08-24 | XMS | Encounter Summary ---
Demographics + + + | Address | [address] | | | [place] [address] | + + + | Home Phone [...] + | Author | [facility] | | | and [place] | + + + | Organization | [facility] | | | and [place] | + + + | Address | Unknown | + + + | Phone | Unavailable | + + + Support + + + + + | Name | Relationship | Address | Phone | + + + + + | India Tilley | ECON | [phone] | | | | | [place], [place] | | | | | [address] | | + + + + + | Yina La | ECON | Unknown | | + + + + + | Ynia Peterson | ECON | Unknown | | + + + + + | Leatha Casillas | ECON | Unknown | | + + + + + Care Team Providers + +------+ + | Care Purse Framer Name | Role | Phone | + [...] | | | | | [address] | [place] | | | | | [place] | [address] | | | | | [address] | | | | | | [phone] | | | +--------+ + + + [...] +----+---+ + + | | 2 | [place] | | | | 2 | 43-degrees [...] 02/05/18 0130 by | | eral | opjv-ajv-[id number] catheter system; | Keren Hernandez RN | [...]
--- OUTSIDE RECORDS SUMMARY | ~2019-08-24 | XMS | Encounter Summary ---
Demographics + + + | Address | [address] | | | [place] [address] | + + + | Home Phone [...] + + + | Author | and [facility] | | | and [place] | + + + | Organization | and [facility] | | | and [place] | + + + | Address | Unknown | + + + | Phone | Unavailable | + + + Support + + + + + | Name | Relationship | Address | Phone | + + + + + | India Tilley | ECON | [address] | | | | | [place], [place] | | | | | [address] | | + + + + + | Yina La | ECON | Unknown | | + + + + + | Yina Peterson | ECON | Unknown | | + + + + + | Leatha Casillas | ECON | Unknown | | + + + + + Care Team Providers + +------+ + | Care Electrician Sound Name | Role | Phone | + +------+ + | Renato Pierson GEAR CHANGER | PCP | | + +------+ + [...] | | disease) on | [address] | [place], [place] | | | | | dialysis | [address] | [address] | | | | | ([facility]) | [address] | Phone: | | | | | Procedures | [place], [place] | [phone] | | | | | IR Inj | [address] | Fax: | | | | | Dialysis | Phone: | | | | | | Circuit | [phone] | | | | | | | Fax: | | | | | | | [phone] | | + +--------+ + + + + Reason for Visit + + + | Reason | Comments | + + + | Procedure | | + + + Encounter Details +--------+ + + + + | Date | Type | Department | Care Team | Description | +--------+ + + + + | 07/31/ | Telephone | [facility] | Louise Fink, | Procedure | | 2019 | | VASCULAR SURGERY | RN | | | | | [address] | | | | | | [place] | | | | | | [address] | | | | | | [phone] | | | +--------+ + + + [...]
--- OUTSIDE RECORDS SUMMARY | ~2019-08-24 | XMS | Encounter Summary ---
Demographics + + + | Address | [address] | | | [place] [address] | + + + | Home Phone [...] | Author | [facility] | | | and [place] | + + + | Organization | [facility] | | | and [place] | + + + | Address | Unknown | + + + | Phone | Unavailable | + + + Support + + + + + | Name | Relationship | Address | Phone | + + + + + | India Tilley | ECON | [address] | | | | | [place], [place] | | | | | [address] | | + + + + + | Yina La | ECON | Unknown | | + + + + + | Yina Petersno | ECON | Unknown | | + + + + + | Leatha Casillas | ECON | Unknown | | + + + + + Care Team Providers + +------+ + | Care Scholarship Counselor Name | Role | Phone | + +------+ + PCP | Unavailable | + +------+ + Encounter Details +--------+ + + + + | Date | Type | Department | Care Team | Description | +--------+ + + + + | 01/05/ | Hospital | [facility] | Scott Koroma, | Closed fracture of | | 2018 | Encounter | [facility] | MD Nash SEPULVEDA | neck of right femur, | | | | [address] [place] | [place], [place] | initial encounter | | | | [place], [place] | [address] | ([facility]); Right hip | | | | [address] | | pain | | | | [phone] | | | +--------+ + + + [...] | | | | encounter ([facility]) | | | | | | Right [...]
--- OUTSIDE RECORDS SUMMARY | ~2019-08-24 | XMS | Encounter Summary ---
Demographics + + + | Address | [address] | | | [place] [address] | + + + | Home Phone [...] Author | [facility] | | | and [place] | + + + | Organization | [facility] | | | and [place] | + + + | Address | Unknown | + + + | Phone | Unavailable | + + + Support + + + + + | Name | Relationship | Address | Phone | + + + + + | India Campos | ECON | [address] | | | | | [place], [place] | | | | | [address] | | + + + + + | Yina La | ECON | Unknown | | + + + + + | Yina Peterson | ECON | Unknown | | + + + + + | Leatha Casillas | ECON | Unknown | | + + + + + Care Team Providers + +------+ + | Care Director [employer] Name | Role | Phone | + [...] + + | 10/01/ | Hospital | [facility] | Olegario Peng, | Hypertensive | | 2018 - | Encounter | [facility] | [address] | emergency; Chest | | | | [address] [place] | [place] | pain, unspecified | | 10/06/ | | [place] [address] | [address] | type; Leg swelling; | | 2017 | | [phone] | | CKD (chronic kidney | | | | | Ruapl Laguna MD | disease), stage IV | | | | | [address] | (HCC); Type 2 | | | | | [place] | diabetes mellitus | | | | | [address] | with stage 4 chronic | | | | | | kidney disease, | | | | | Nikhil Vega, | with long-term | | | | | MD Mayelin [address] | current use of | | | | | [address] [place] | insulin (HCC); | | | | | [place] [address] | Anemia of chronic | | | | | [phone] | renal failure, stage | | | [...] Keys MD - 10/06/2017 10:38 AM PST [facility] DISCHARGE SUMMARY Pt. Name/Age/: Estefani [...] Specialty: Nephrology Why: at 4:30PM, at the [facility], [address], [place], [place], ([phone]). Contact information: [address] [facility], [facility] [address] [facility] [address] Santos Stephenson MD, FACS In 2 weeks. Specialties: General Surgery, Vascular Surgery Why: Dr. Stephenson's Office, the Vascular Surgeon, will Call you with the time.* Contact information: [address] [facility] [address] RESULTS: Narrative TECHNIQUE: Renal [...] pressures were in the 230 range at [facility] and she received IV hydralazine and [...] signed by: Edison Keys MD, 10/06/2017 10:48 Located within [facility] Portions of this chart may have been created with [employer] voice recognition software. Occasi onal wrong-word [...] your Appt. with Dr. Muñoz at the [facility]. 2. Dr. Stephenson Office, the Vascular [...] to come to the [facility] at [place], [place] for follow up on 11/08/17. We sent a Referral to Dr. Stephenson's Office for an outpt appt. for an AVF construction in the very near future. They will call her with the Appt. time per [facility] policy. Will attempt to wait until AVF is mature before starting outpt HD, as long as uremic sympto ms do not intervene. Thanks. [facility] Edison Andrea M D - 10/05/2017 2:20 PM PST Located within [facility] PMG Hospitalist Progress Note Estefani Campos is [...] that she should be followed by a classified advertising supervisor night discussed this issue with her. I [...] as outlined above. Edison Keys 10/05/2017 14:20 [facility] Portions of this chart may have been created with [employer] voice recognition software. Occasi onal wrong-word or sound-alike substitutions may have occurred due to the inherent mckeon itations of voice recognition software. Please read the chart carefully and recognize, using context, where these substitutions have occurred Mayelin Sanders MD - 10/04/2017 5:37 PM PST [facility] [place] [facility] HOSPITALIST PROGRESS NOTE Patient: Estefani Campos : 1945: Age: 72 y.o. MedRec: [id number] Admission date: 10/01/2017 Hospital day # : [...] Procedure Component Value Units Date/Time Culture, MRSA [[id number]] Collected: 10/02/17 0803 Order Status: Completed Lab [...] Code: FULL Mayelin Vega MD 10/04/2017 17:38 [facility] Portions of this chart may have been created with [employer] voice recognition software. Occasi onal wrong-word [...] performed and electronically signed by Puja Whitman, H[employer]icultural [employer]ty [employer] 2017 10:09 Electronically signed by: Ta Ronquillo RPH 10/04/2017 10:14 Diann Sanders MD - 10/03/2017 12:46 PM PST [facility] [place] HOSPITALIST PROGRESS NOTE Patient: Estefani Campos : 1945: Age: 72 y.o. MedRec: [id number] Admission date: 10/01/2017 Hospital day # : [...] Procedure Component Value Units Date/Time Culture, MRSA [[id number]] Collected: 10/02/17 0803 Order Status: Completed Lab [...] Code: FULL Mayelin Vega MD 10/03/2017 12:46 [facility] Portions of this chart may have been created with [employer] voice recognition software. Occasi onal wrong-word or sound-alike substitutions may have occurred due to the inherent mckeon itations of voice recognition software. Please read the chart carefully and recognize, using context, where these substitutions have occurred ayelin Engle MD - 10/02/2017 9:13 AM PSTFormatting of this note might be different from the or iginal. [facility] [place] HOSPITALIST PROGRESS NOTE Patient: Estefani Campos : 1945: Age: 72 y.o. MedRec: [id number] Admission date: 10/01/2017 Hospital day # : [...] ECGs available Confirmed by KEN ELLISON MD ([id number]) on 10/02/2017 7:49:20 AM Lipid Panel Collection [...] Procedure Component Value Units Date/Time Culture, MRSA [[id number]] Collected: 10/02/17802 Order Status: Sent Lab Status: [...] is in the process of establishing with [facility]. Additionally, she reports being homeless [...] with tele Mayelin Vega MD 10/02/2017 9:13 [facility] Portions of this chart may have been created with [employer] voice recognition software. Occasi onal wrong-word [...] + | [facility] | [address] | [place] | [phone] | | [facility] | | [address] | | | - LABORATORY | | [...] [address] | [place] | [phone] | | [facility] | | [address] | | | - LABORATORY | | [...] mL/min/1.73m2 | [facility] | | | [place] | | | MEDICAL | | | [...] [address] | [place] | [phone] | | [facility] | | [address] | | | - LABORATORY | | [...] + | [facility] | [address] | [place] | [phone] | | [facility] | | [address] | | | - LABORATORY | | [...] | | POC | | | [facility] | | | | | | MEDICAL [...] + | [facility] | [address] | [place] | [phone] | | [facility] | | [address] | | | - LABORATORY | | [...] [address] | [place] | [phone] | | [facility] | | [address] | | | - LABORATORY | | [...] + | [facility] | [address] | [place] | [phone] | | [facility] | | [address] | | | - LABORATORY | | [...] + | [facility] | [address] | [place] | [phone] | | [facility] | | [address] | | | - LABORATORY | | [...] ST. | [address] | [place], [place] | [phone] | | [facility] | | [address] | | | - LABORATORY | | [...] [address] | [place] | [phone] | | [facility] | | [address] | | | - LABORATORY | | [...] [address] | [place] | [phone] | | [facility] | | [address] | | | - LABORATORY | | [...] + | [facility] | [address] | [place] | [phone] | | [facility] | | [address] | | | - LABORATORY | | [...] ST. | [address] | [place], [place] | [phone] | | [facility] | | [address] | | | - LABORATORY | | [...] [address] | [place] | [phone] | | [facility] | | [address] | | | - LABORATORY | | [...] 3.11 (H) | 0.60 - 1.30 | [facility] | | | | | mg/dL | [facility] | | | | | | MEDICAL | | | | | | CENTER - | | | | | | LABORATORY | | + + + + + + | eGFR if not | 15 (L)Comment: | >=60 | [facility] | | | | GLOMERULAR FILTRATION | mL/min/1.73m2 | [facility] | | | [place] | RATE,ESTIMATED | | MEDICAL | | | | mL/min/1.30t2Uzhm than | | CENTER - | | [...] [address] | [place] | [phone] | | [facility] | | [address] | | | - LABORATORY | | [address] | [place] | [phone] | | [facility] | | [address] | | | - LABORATORY | | [...] [address] | [place] | [phone] | | [facility] | | [address] | | | - LABORATORY | | [...] + | [facility] | [address] | [place] | [phone] | | [facility] | | [address] | | | - LABORATORY | | [...] | | POC | | | [facility] | | | | | [...] + | [facility] | [address] | [place] | [phone] | | [facility] | | [address] | | | - LABORATORY | | [...] [address] | [place] | [phone] | | [facility] | | [address] | | | - LABORATORY | | [...] [address] | [place] | [phone] | | [facility] | | [address] | | | - LABORATORY | | [...] | [facility] | | | [place] | RATE,ESTIMATED | | MEDICAL | | | | mL/min/1.03p5Eirn than | | CENTER - | | [...] [address] | [place] | [phone] | | [facility] | | [address] | | | - LABORATORY | | [...] [address] | [place] | [phone] | | [facility] | | [address] | | | - LABORATORY | | [...] [address] | [place] | [phone] | | [facility] | | [address] | | | - LABORATORY | | [...] 3.13 (H) | 0.60 - 1.30 | [facility] | | | | | mg/dL | [facility] | | | | | | MEDICAL | | | | | | CENTER - | | | | | | LABORATORY | | + + + + + + | eGFR if not | 15 (L)Comment: | >=60 | [facility] | | | | GLOMERULAR FILTRATION | mL/min/1.73m2 | [facility] | | | [place] | RATE,ESTIMATED | | MEDICAL | | | | mL/min/1.74v4Utej than | | CENTER - | | [...] + | [facility] | [address] | [place] | [phone] | | [facility] | | [address] | | | - LABORATORY | | [...] ST. | [address] | [place], [place] | [phone] | | [facility] | | [address] | | | - LABORATORY | | | | + + + + + VAS Lower Extremity Venous Bilateral (10/02/2017 10:07 AM [facility]) + + | Specimen | + [...] 454 R | | | Patient Number [id number] Date of Study | | | 10/02/2017 Visit Number [id number] Accession | | | [id number] Referring Physician LOY RUPAL Number | | | Date of 1945 Golf Course Assistant | | | WENDY HUDSON | | | CEASAR Age 72 year(s) | | | Interpreting CLAUDIA HUGHES MD | | | Sister Superior Gender | | | Female Nurse | | | Stress Pick Pulling Machine Tender Procedure Type of Study TTE procedure: [...] | 71.7 ml | | | EF Sdvxpirfy72% Left Ventricle Diastolic Dimension: 5.37 cm | [...] Volume: 71.7 ml | | | EF Ccjlcfdzv94% | | | | | | Left [...] Jordan Results In - 10/02/2017 9:41 AM [facility] Transthoracic Echocardiography Report | | (TTE) Demographics Patient Name ANDRES BULLOCK Room Number 454 | | R Patient Number [id number] Date of Study 10/02/2017 Visit Number | | [id number] Referring Physician LOY MATA Number | | Date of 1945 Golf Course Assistant WENDY BECCA | | RUST Age 72 year(s) Interpreting | | CLAUDIA HUGHES MD Sister Superior Gender | | Female Nurse Stress TechnicianProcedureType [...] LA Volume: 71.7 ml EF | | Qxnfodrun78% Left Ventricle Diastolic Dimension: 5.37 cm Septum [...] LA Volume: 71.7 ml | | EF Qbgspganl71% | | | | Left Ventricle | [...] [address] | [place] | [phone] | | [facility] | | [address] | | | - LABORATORY | | [...] + | [facility] | [address] | [place] | [phone] | | [facility] | | [address] | | | - LABORATORY | | [...] [address] | [place] | [phone] | | [facility] | | [address] | | | - LABORATORY | | [address] | [place] | [phone] | | [facility] | | [address] | | | - LABORATORY | | [...] | | | | | | [employer] | | | | | [...] [address] | [place] | [phone] | | [facility] | | [address] | | | - LABORATORY | | [...] ST. | [address] | [place], [place] | [phone] | | [facility] | | [address] | | | - LABORATORY | | [...] 3.03 (H) | 0.60 - 1.30 | [facility] | | | | | mg/dL | [facility] | | | | | | MEDICAL | | | | | | CENTER - | | | | | | LABORATORY | | + + + + + + | eGFR if not | 15 (L)Comment: | >=60 | [facility] | | | | GLOMERULAR FILTRATION | mL/min/1.73m2 | [facility] | | | [place] | RATE,ESTIMATED | | MEDICAL | | | | mL/min/1.87f2Rtoq than | | CENTER - | | [...] + | [facility] | [address] | [place] | [phone] | | [facility] | | [address] | | | - LABORATORY | | [...] + | [facility] | [address] | [place] | [phone] | | [facility] | | [address] | | | - LABORATORY | | [...] | | | | KEN ELLISON MD ([id number]) | | | | | | on [...] [address] | [place] | [phone] | | [facility] | | [address] | | | - LABORATORY | | [...] | | | | | | [employer] | | | | | [...] ST. | [address] | [place], [place] | [phone] | | [facility] | | [address] | | | - LABORATORY | | [address] | [place] | [phone] | | [facility] | | [address] | | | - LABORATORY | | [...] [address] | [place] | [phone] | | [facility] | | [address] | | | - LABORATORY | | [...] (H) | 7 - 18 mg/dL | [facility] | | | | | | [facility] | | | | | | MEDICAL | | | | | | CENTER - | | | | | | LABORATORY | | + + + + + + | Creatinine | 3.05 (H) | 0.60 - 1.30 | [facility] | | | | | mg/dL | [facility] | | | | | | MEDICAL | | | | | | CENTER - | | | | | | LABORATORY | | + + + + + + | eGFR if not | 15 (L)Comment: | >=60 | [facility] | | | | GLOMERULAR FILTRATION | mL/min/1.73m2 | [facility] | | | [place] | RATE,ESTIMATED | | MEDICAL | | | | mL/min/1.13z2Ayxq than | | CENTER - | | [...] + | [facility] | [address] | [place] | [phone] | | [facility] | | [address] | | | - LABORATORY | | [...] ST. | [address] | [place] | [phone] | | [facility] | | [address] | | | - LABORATORY | | [...] | | | | First dose on [facility] 10/05/17 at 1445 | | AM [...] | | | | | NPO, Daytime 6759-9106 Use NIGHT | | | | | | | DOSE for doses scheduled: | | | | | | | HS, 3AM, Nighttime 6159-4615, | | | | | | + [...] dose | | | on [facility] 10/07/17 at 0900 | | + +---+ | | | + +---+ + +-------+ +-------+---+---+ | losartan (COZAAR) tablet 50 mg | Given | 10/05/19 | 50 mg | | | | 50 mg, Oral, 2 TIMES DAILY, | | 18 8:27 | | | | | First dose on [place] 10/03/17 at 0930 | | AM PST [...]
--- OUTSIDE RECORDS SUMMARY | ~2019-08-24 | XMS | Encounter Summary ---
Demographics + + + | Address | [address] | | | [place] [address] | + + + | Home Phone [...] | Located Within [facility] | | | and Kam[place]it[place] | + + + | Organization | Located Within [facility] | | | and [place] | + + + | Address | Unknown | + + + | Phone | Unavailable | + + + Support + + + + + | Name | Relationship | Address | Phone | + + + + + | India Tilley | ECON | [phone] | | | | | [place], [place] | | | | | [address] | | + + + + + | Yina La | ECON | Unknown | | + + + + + | Yina Peterson | ECON | Unknown | | + + + + + | Leatha Casillas | ECON | Unknown | | + + + + + Care Team Providers + +------+ + | Care Big 6 Dealer Name | Role | Phone | + [...] + + | 03/23/ | Emergency | [facility] | Carlos Baker | Osteomyelitis, | | 2019 - | | MED CTR EMERGENCY | MD Venkatesh [address] | unspecified site, | | | | CENTER [address] | [address] [place] | unspecified type | | 03/24/ | | [place], [place] | [place] [address] | ([facility]) (Primary Dx); | | 2018 | | [address] | [phone] | Acute midline | | | | [phone] | | thoracic back pain; | | [...] R?MRN: | | | | | | [id number] | | | [id number] | | | riteri | | | [...] | | | St. | | | [place] | | | y | | | [...] | | | [facility] | | | [place] | | | [facility] [address] | | | [facility] | | | St[facility] | | | [place] | | | y | | | [...] | | | St. | | | [place] | | | y H. | | [...] | | e of | | | [place] | | | | | | mckeon [...] | | | St. | | | [place] | | | y H. | | [...] the | | | | | | estimate clerk | | | al | | | [...] | | | St. | | | [place] | | | y H. | | [...] | | e of | | | [place] | | | | | | mckeon [...] | | | [facility] | | | [place] | | | [place] | | | ID | | | [...] | | | [facility] | | | [place] | | | [place] | | | ID | | | [...] | | | [facility] | | | [place] | | | [place] | | | ID | | | [...] | | | [facility] | | | [place] | | | [place] | | | ID | | | [...] | | | [facility] | | | [place] | | | [place] | | | ID | | | [...] | | | [facility] | | | [place] | | | | | | HEALTH [...] | | | [id number] | | | [id number] | | | [address] | | | [...] ST. | [address] | [place], [place] | [phone] | | [facility] | | [address] | | | - LABORATORY | | [...] + | [facility] | [address] | [place] | [phone] | | [facility] | | [address] | | | - LABORATORY | | [...] + | [facility] | [address] | [place] | [phone] | | [facility] | | [address] | | | - LABORATORY | | [...] [address] | [place] | [phone] | | [facility] | | [address] | | | - [...] 3.78 (H) | 0.55 - 1.02 | [facility] | | | | | mg/dL | [facility] | | | | | | MEDICAL | | | | | | CENTER - | | | | | | LABORATORY | | + + + + + + | eGFR if not | 12 (L)Comment: | >=60 | [place] | | | | GLOMERULAR FILTRATION | mL/min/1.73m2 | [facility] | | | [place] | RATE,ESTIMATED | | MEDICAL | | | | mL/min/1.19o8Iica than | | CENTER - | | [...] [address] | [place] | [phone] | | [facility] | | [address] | | | - LABORATORY | | [...] [address] | [place] | [phone] | | [facility] | | [address] | | | - LABORATORY | | [...] [address] | [place] | [phone] | | [facility] | | [address] | | | - LABORATORY | | [...] lymphadenopathy. | | | LUNGS:There is a mlxwk-sg-rgvkenbj layering left pleural effusion. | | | [...] or hilar | | lymphadenopathy.LUNGS:There is a ifnht-kp-rqvdbpac layering left pleural effusion. | | There [...] very highly suspicious for osteomyelitis/discitis at the [id number].Small to | | moderate layering left pleural [...] | | PRN, Other, Starting [facility] 03/23/19 | | PM PDT | [...] | | | | ONCE, [facility] 03/23/19 at 2014, For 1 | [...] | | 90 Minutes, ONCE, [facility] 03/23/19 at | | | | | | | 2240, For 1 dose, Keep in | | | | | | | refrigerator., Indications: | | | | | | | Osteomyelitis | | | | | | + +---------+ + +-------+---+ + +---+ | | | + +---+ | vancomycin per pharmacy | | | PHARMACY CONSULT, Starting [facility] | | | 03/23/19 at 2229, Indications: | | | Osteomyelitis | | + +---+ | | | + +---+ documented in this encounter
--- OUTSIDE RECORDS SUMMARY | ~2019-08-24 | XMS | Encounter Summary ---
Demographics + + + | Address | [address] | | | [place] [address] | + + + | Home Phone [...] + | Author | [facility] | | | and [place]it[place] | + + + | Organization | [facility] | | | and [place] | + + + | Address | Unknown | + + + | Phone | Unavailable | + + + Support + + + + + | Name | Relationship | Address | Phone | + + + + + | India Tilley | ECON | [address] | | | | | [place], [place] | | | | | [address] | | + + + + + | Yina La | ECON | Unknown | | + + + + + | Yina Peterson | ECON | Unknown | | + + + + + | Leatha Casillas | ECON | Unknown | | + + + + + Care Team Providers + +------+ + | Care Rn Forensic Name | Role | Phone | + [...] + + | 01/05/ | Office | [facility] | Scott Koroma, | Closed fracture of | | 2019 | Visit | ORTHOPEDIC SURGERY | MD [address] [facility] | neck of right femur, | | | | [address] | [place] REESE MD | initial encounter | | | | [place], [place] | [address] | (HCC) (Primary Dx); | | | | [address] | | Right hip pain | | | | [phone] | | | +--------+---------+ + + + [...]
--- OUTSIDE RECORDS SUMMARY | ~2019-08-24 | XMS | Encounter Summary ---
Demographics + + + | Address | [address] | | | [place] [address] | + + + | Home Phone [...] Author | Merged With [facility] | | | and [place] | + + + | Organization | Merged With [facility] | | | and [place] | + + + | Address | Unknown | + + + | Phone | Unavailable | + + + Support + + + + + | Name | Relationship | Address | Phone | + + + + + | India Tilley | ECON | [address] | | | | | [place], [place] | | | | | [address] | | + + + + + | Yina La | ECON | Unknown | | + + + + + | Yina Peterson | ECON | Unknown | | + + + + + | Leatha Casillas | ECON | Unknown | | + + + + + Care Team Providers + +------+ + | Care Switch Coupler Name | Role | Phone | + +------+ + PCP | Unavailable | + +------+ + Encounter Details +--------+ + + + + | Date | Type | Department | Care Team | Description | +--------+ + + + + | 11/08/ | Imaging | [facility] | Provider, | | | 2018 | Exam | MED CTR EXTERNAL | MD [address] | | | | | IMAGING | [address] | | | | | [phone] | [place] [address] | | +--------+ + + + + [...] for comparison only - no result from [employer]. | [facility] | + + + + +---------+ + + | Performing | Address | City/State/Zipcode | Phone Number | | Organization | | | | + +---------+ + + | [facility] | | | | + +---------+ + + documented in this encounter Visit Diagnoses Not on filedocumented in this encounter"
[~2019-08-24 16:38] MED LIST changes: +ASPIR-LOW81 MG PO; +CATAPRES-TTS 11 EACH TD; +CLONIDINE1 EACH TD; +LASIX80 MG PO; +LOSARTAN POTAS100 MG PO; +NIFEDIPINE ER90 M1 PO; +PROTONIX40 MG PO; +THERA-D4000 UNIT PO
--- OUTSIDE RECORDS SUMMARY | 2019-08-24 16:42 | XMS ---
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 No recent Security Events currently on file CRITERIA MET - Group Notification - 6 ED Visits in 6 Months - [facility] - [facility] - 2 Visits in 30 Days CARE PROVIDERS YVETTE SEBASTIAN Physician Wildlife Science Professor: Surgical 11/23/2018-Current PHONE: Unknown Name Unknown Fpc Facility Current PHONE: [phone] RUI HODGE [facility] 10/03/2018-Current PHONE: Unknown PUJA IVEY Nurse Practitioner 04/04/2019-Current PHONE: [phone] Name Unknown Clinic/Center 07/28/2019-Current PHONE: [phone] [facility] Primary Care 01/11/[facility] PHONE: Unknown Bertrand has no Care Guidelines for this patient. Care History Medical/Surgical 07/28/2019 [facility] \T\middot;\T\nbsp; PATIENT- [facility] ELIGIBLE \T\middot;\T\nbsp; PLEASE REFER PATIENT TO [facility] FOR NON EMERGENT MEDICAL NEEDS. \T\middot;\ T\nbsp; [facility] CAN SEE PATIENTS SAME DAY FOR APTS IF PATIENT CALLS FIRST THING IN THE MORNING. E.D. [facility] MO.) [facility] 10 [facility] TOTAL 13 NOTE: Visits indicate total known visits. 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 [place] TYPE: Emergency DIAGNOSES: - End stage renal disease - Difficulty Breathing - Hyperkalemia - Shortness of Breath 05/20/2019 15:22 [facility] [place] TYPE: Emergency COMPLAINT: - SOB DIAGNOSES: - End stage renal disease - Allergy status to analgesic agent status - Shortness of breath - Personal history of malignant neoplasm of breast - Allergy status to oth drug/meds/biol subst status - Dependence on renal dialysis - Allergy status to other anti-infective agents status - USP (current) use of aspirin - 1 Type 2 diabetes mellitus with diabetic cataract - 1 Hyp hrt \T\ chr kdny dis w hrt fail and stg 1-4/unsp chr kdny - 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 - 1 Type 2 diabetes mellitus with diabetic neuropathy, unsp - Heart failure, unspecified 05/01/2019 08:41 [facility] [place] TYPE: Emergency COMPLAINT: - HIGH BP DIAGNOSES: - USP (current) use of aspirin - Essential (primary) [...] diabetes mellitus with diabetic cataract - 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 - Allergy status to analgesic agent status 04/27/2019 02:37 [facility] [place] TYPE: Emergency COMPLAINT: - MULTIPLE COMPLAINT DIAGNOSES: - Unspecified injury of head, initial encounter - watermaster (current) use of aspirin - Hypothyroidism, unspecified [...] loss of consciousness, initial encounter - Other usp (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 - Fall same lev from slip/trip w strike agnst [facility] object, init - Personal history of malignant neoplasm of breast - Allergy status to oth drug/meds/biol subst status 04/04/2019 17:35 [facility] [place] TYPE: Emergency COMPLAINT: - SHAKY,ALTERED LOC DIAGNOSES: - Allergy status to oth drug/meds/biol subst status - Weakness - Personal history of malignant neoplasm of breast - 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 - 1 Type 2 [...] and cereb infrc w/o resid deficits - USP (current) use of aspirin - End stage renal disease - Major depressive disorder, single episode, unspecified 04/03/2019 14:36 [facility] TYPE: Emergency COMPLAINT: - WEAKNESS DIAGNOSES: - Hypothyroidism, unspecified - Allergy status to analgesic agent status - Other usp (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 - Allergy status to oth drug/meds/biol subst status - Essential (primary) hypertension - watermaster (current) use of aspirin - 1 Type 2 diabetes mellitus with diabetic neuropathy, unsp - Weakness - 1 Type 2 diabetes mellitus with diabetic cataract - Prsnl hx of TIA (TIA), and cereb infrc w/o resid deficits - Personal history of malignant neoplasm of breast 03/23/2019 17:03 [facility] TYPE: Emergency DIAGNOSES: - Pain in thoracic spine - Osteomyelitis, unspecified - back pain - Rib Pain - Discitis, unspecified, site unspecified 11/22/2018 23:03 [facility] [place] TYPE: Emergency COMPLAINT: - FALL DIAGNOSES: - Essential (primary) hypertension - 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 - 1 Type 2 diabetes mellitus with diabetic neuropathy, unsp - Prsnl hx of TIA (TIA), and cereb infrc w/o resid deficits - Dependence on renal dialysis - Major depressive disorder, single episode, unspecified - Allergy status to oth drug/meds/biol subst status - Unspecified injury of head, initial encounter - Other usp (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 - Fall same lev [...] Contusion of abdominal wall, initial encounter - watermaster (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 - [facility] - Personal history of malignant neoplasm of breast - Other usp (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 - Allergy status to oth drug/meds/biol subst status - Dependence on renal dialysis - 1 Hypertensive chronic kidney disease w stg 1-4/unsp chr kdny - 1 Type 2 diabetes mellitus w diabetic chronic kidney disease - Hypothyroidism, unspecified - 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 [place] TYPE: Emergency DIAGNOSES: - Shortness of Breath - Fluid overload, unspecified - Congestion/Difficulty Breathing/Emesis INPATIENT VISIT TRACKING (12 MO.) 06/20/2019 05:00 [facility] TYPE: Cardiology DIAGNOSES: - Hyperkalemia - Hyperkalemia - Other fluid overload [facility]2019 [facility] DIAGNOSES: - Osteomyelitis of vertebra, thoracic region - Left ventricular failure, unspecified - End stage renal disease - Dependence on renal dialysis - Hypoxemia - CHF - 1 Type 2 diabetes mellitus w diabetic chronic kidney disease - Anemia in chronic kidney disease - 1 Chronic kidney disease, stage 4 (severe) - Essential (primary) hypertension - Hypertensive urgency - watermaster (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 03/24/2019 00:55 [facility] TYPE: Nephrology DIAGNOSES: - Dependence on renal dialysis - End stage renal disease - Essential (primary) hypertension - Osteomyelitis, unspecified - 1 Type 2 diabetes mellitus w diabetic chronic kidney disease - USP (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 - 1 Chronic kidney disease, stage 4 (severe) - Secondary multiple arthritis - Discitis, unspecified, thoracic region 12/04/2018 13:34 [facility] TYPE: Surgical Services DIAGNOSES: - 1 Type 2 diabetes mellitus w diabetic chronic kidney disease - Renal osteodystrophy - USP (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 - Fx unsp [...] Anemia in chronic kidney disease 08/31/2018 02:09 [facility] Jose Maria [facility] [place] TYPE: General Medicine DIAGNOSES: - Pleural effusion, not elsewhere classified - Essential (primary) hypertension - Fluid overload, unspecified - Lobar pneumonia, unspecified organism [email or web address]
== END 2019-08-24 20:44 | disposition home or self-care (01) ==
LOC: ED 16:38
DX: B34.9 Viral infection, unspecified (principal); E87.5 Hyperkalemia; E03.9 Hypothyroidism, unspecified; E11.22 Type 2 diabetes mellitus with diabetic chronic kidney disease; I12.0 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 or end stage renal disease; N18.6 End stage renal disease; E11.40 Type 2 diabetes mellitus with diabetic neuropathy, unspecified; Z99.2 Dependence on renal dialysis; F32.9 Major depressive disorder, single episode, unspecified; Z79.899 Other long term (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
CPT/HCPCS: 36415; 71045; 80053; 83880; 84484; 85025; 99284-25

== ENCOUNTER 2019-09-08 12:19 | Emergency (ER) | payer MEDICARE, OTHER ==
[~2019-09-08] VITALS: Ht 172.7 cm; Wt 74.8 kg
--- OUTSIDE RECORDS SUMMARY | ~2019-09-08 | XMS | Encounter Summary ---
Demographics + + + | Address | [address] | | | [place] [address] | + + + | Home Phone | | + + + | Preferred Language | Unknown | + + + | Marital Status | Single | + + + | Rastafari Affiliation | Unknown | + + + | Race | Unknown | + + + | Ethnic Group | Unknown | + + + Author + + + | Author | [facility] | | | and [place]it[place] | + + + | Organization | [facility] | | | and [place] | + + + | Address | Unknown | + + + | Phone | Unavailable | + + + Support + + + + + | Name | Relationship | Address | Phone | + + + + + | India Tilley | ECON | [id number] | | | | | [place], [place] | | | | | [address] | | + + + + + | Yina La | ECON | Unknown | | + + + + + | Yina Peterson | ECON | Unknown | | + + + + + | Leatha Casillas | ECON | Unknown | | + + + + + Care Team Providers + +------+ + | Care Slabber Light Name | Role | Phone | + +------+ + PCP | Unavailable | + +------+ + Encounter Details +--------+ + + + + | Date | Type | Department | Care Team | Description | +--------+ + + + + | 01/05/ | Hospital | [facility] | Scott Koroma, | Closed fracture of | | 2018 | Encounter | MED CTR DERICK XRAY | MD Nash SEP[place] | neck of right femur, | | | | [address] [place] | [place], [place] | initial encounter | | | | [place], [place] | [address] | ([facility]); Right hip | | | | [address] | | pain | | | | [phone] | | | +--------+ + + + + Social History + +-------+ +--------+------+ | Tobacco Use | Types | Packs/Day | Years | Date | | | | | Used | | + +-------+ +--------+------+ | Never Smoker | | | | | + +-------+ +--------+------+ + +---+---+---+ | Smokeless Tobacco: | | | | | Never Used | | | | + +---+---+---+ + + +---------+ + | Alcohol Use [...] + + documented as of this encounter Functional Status + + + + | Functional Status | Response | Date of Assessment | + + + + | Are you deaf or do you have serious | No | 02/05/2018 | | difficulty hearing? | | | + + + + | Are you blind or do you have serious | No | 02/05/2018 | | difficulty seeing, even when wearing | | | | glasses? | | | + + + + | Do you have serious difficulty walking or | No | 02/05/2018 | | climbing stairs? (5 years old or older) | | | + + + + | Do you have difficulty dressing or bathing? | No | 02/05/2018 | | (5 years old or older) | | | + + + + | Because of a physical, mental, or emotional | No | 02/05/2018 | | condition, do you have difficulty doing | | | | errands alone such as visiting a doctor's | | | | office or shopping? [15 years old or | | | | older)] | | | + + + + + + + + | Cognitive Status | Response | Date of Assessment | + + + + | Because of a physical, mental, or emotional | No | 02/05/2018 | | condition, do you have serious difficulty | | | | concentrating, remembering, or making | | | | decisions? (5 years old or older) | | | + + + + documented as of this encounter Medications at Time of Discharge + + + +---------+ + + | Medication | Sig | Dispensed | Refills | Start | End Date | | | | | | Date | | + + + +---------+ + + | albuterol 90 | Inhale 2 puffs into | | 0 | | | | mcg/puff inhaler | the lungs 4 times | | | | | | | daily as needed for | | | | | | | Shortness of Breath. | | | | | + + + +---------+ + + | ARTIFICIAL TEAR | Place 1-2 drops into | | 0 | | | | SOLUTION OP | both eyes as needed | | | | | | | (for dry eyes). | | | | | + + + +---------+ + + | aspirin 81 mg EC | Take 81 mg by mouth | | 0 | | | | tablet | Daily. | | | | | + + + +---------+ + + | atorvaSTATin | Take 20 mg by mouth | | 0 | | | | (LIPITOR) 20 mg | nightly. | | | | | | tablet | | | | | | + + + +---------+ + + | b complex-vitamin | Take 1 tablet by | | 0 | | | | c-folic acid | mouth Daily. | | | | | | (NEPHRO-MANUEL) tablet | | | | | | + + + +---------+ + + | Cholecalciferol | Take 4,000 Units by | | 0 | 03/30/20 | | | 4000 units TABS | mouth Daily. | | | 19 | | + + + +---------+ + + | Insulin Pen Needle | by Does not apply | | 0 | | | | 31G X 5 MM MISC | route. | | | | | + + + +---------+ + + | Lancets MISC | by Does not apply | | 0 | | | | | route. | | | | | + + + +---------+ + + | levothyroxine | Take 75 mcg by mouth | | 0 | | | | (SYNTHROID, | every morning | | | | | | LEVOTHROID) 75 MCG | (before breakfast). | | | | | | tablet | | | | | | + + + +---------+ + + | olopatadine | Place 1-2 drops into | | 0 | | | | (PATANOL) 0.1% | both eyes 2 times | | | | | | ophthalmic solution | daily. | | | | | + + + +---------+ + + | ondansetron | Take 1 tablet by | 20 | 0 | 12/13/19 | | | (ZOFRAN) 4 mg tablet | mouth every 6 hours | tablet | | 19 | | | | as needed for | | | | | | | Nausea. | | | | | + + + +---------+ + + | pantoprazole | Take 40 mg by mouth | | 0 | | | | (PROTONIX) 40 mg | every morning | | | | | | tablet | (before breakfast). | | | | | + + + +---------+ + + | epoetin karthik | Inject 4,000 Units | | 0 | | | | (EPOGEN, PROCRIT) | under the skin Three | | | | 9 | | 10,000 units/mL | times a week. | | | | | | injection | | | | | | + + + +---------+ + + | furosemide (LASIX) | Take 1 tablet by | 50 | 0 | 10/07/19 | | | 80 mg tablet | mouth Daily. | tablet | | 18 | 9 | + + + +---------+ + + | hydrophilic | Apply 1 Application | | 0 | | | | ointment | topically Daily. For | | | | 9 | | | dry skin | | | | | + + + +---------+ + + | insulin glargine | Inject 12 Units | | 0 | | | | (LANTUS SOLOSTAR) | under the skin | | | | 9 | | 100 units/mL | nightly. | | | | | | injection (pen) | | | | | | + + + +---------+ + + | labetalol | Take 1 tablet by | 100 | 0 | 10/06/19 | | | (NORMODYNE) 200 mg | mouth 2 times daily. | tablet | | 18 | 9 | | tablet | | | | | | + + + +---------+ + + | | Apply 1 Application | | 0 | | | | lidocaine-prilocaine | topically Daily. To | | | | 9 | | (EMLA) cream | access 1 hour prior | | | | | | | to dialysis | | | | | + + + +---------+ + + | losartan (COZAAR) | Take 1 tablet by | | 0 | 03/07/20 | | | 100 MG tablet | mouth Daily. | | | 18 | 9 | + + + +---------+ + + | montelukast | Take 10 mg by mouth | | 0 | | | | (SINGULAIR) 10 mg | nightly. For asthma | | | | 9 | | tablet | or allergies | | | | | + + + +---------+ + + | | Take 1-2 tablets by | 60 | 0 | 01/06/20 | | | oxyCODONE-acetaminop | mouth every 6 hours | tablet | | 19 | 9 | | hen (PERCOCET) 5-325 | as needed for Pain. | | | | | | mg per tablet | | | | | | + + + +---------+ + + | UNABLE TO FIND | Med Name: | | 0 | | | | | Cadoexomer Iodine | | | | 9 | | | 0.9 % gel. Apply a | | | | | | | small amount to | | | | | | | affected area as | | | | | | | directed during | | | | | | | dressing changes. | | | | | + + + +---------+ + + documented as of this encounter Plan of Treatment Not on filedocumented as of this encounter Procedures + +--------+ + + + | Procedure Name | Priori | Date/Time | Associated Diagnosis | Comments | | | ty | | | | + +--------+ + + + | XR HIP RIGHT 2-3 | Routin | 01/05/2019 | Closed fracture of | Results for this | | VIEWS | e | 1:48 PM | neck of right | procedure are in the | | | | PDT | femur, initial | results section. | | | | | encounter ([facility]) | | | | | | Right hip pain | | + +--------+ + + + documented in this encounter Results XR Hip Right 2-3 Views (01/05/2019 1:48 PM PDT) + + | Specimen | + + | | + + + + + | Narrative | Performed At | + + + | TWO VIEWS RIGHT HIP 01/05/2019 1:48 PM CLINICAL HISTORY: S/P | [facility] | | Cannulated Screw Fixation Right Femoral Neck Fracture DOS: 12/04/2018 | | | COMPARISON: Spot films and radiographs December 04 FINDINGS: | | | Osteopenia is suggested. Three cannulated screws persist in the | | | femoral head and neck and appear stable and intact. The screws | | | bridge the previously described subcapital fracture site, which | | | demonstrates similar partial displacement and impaction. No new | | | fracture or subluxation is evident. The pubic symphysis is | | | maintained. Femoral arterial calcification is again evident. | | | IMPRESSION - 1. STABLE CHANGES OF PROXIMAL RIGHT FEMORAL SCREW | | | FIXATION. Dictated and Signed by: Arun Hodge MD | | | Electronically signed: 01/05/2019 3:17 PM | | + + + + + | Procedure Note | + + | Anjum Jordan Results In - 01/05/2019 3:20 PM PDT TWO VIEWS RIGHT HIP 01/05/2019 1:48 PM | | | | CLINICAL HISTORY: S/P Cannulated Screw Fixation Right Femoral Neck Fracture DOS: | | 12/04/2018 | | | | COMPARISON: Spot films and radiographs December 04 | | | | FINDINGS: Osteopenia is suggested. Three cannulated screws persist in the | | femoral head and neck and appear stable and intact. The screws bridge the | | previously described subcapital fracture site, which demonstrates similar | | partial displacement and impaction. No new fracture or subluxation is evident. | | The pubic symphysis is maintained. Femoral arterial calcification is again | | evident. | | | | IMPRESSION - | | 1. STABLE CHANGES OF PROXIMAL RIGHT FEMORAL SCREW FIXATION. | | | | Dictated and Signed by: Arun Hodge MD | | Electronically signed: 01/05/2019 3:17 PM | + + + +---------+ + + | Performing | Address | City/State/Zipcode | Phone Number | | Organization | | | | + +---------+ + + | [facility] | | | | + +---------+ + + documented in this encounter Visit Diagnoses + + | Diagnosis | + + | Closed fracture of neck of right femur, initial encounter (HCC) | + + | Right hip pain Pain in joint, pelvic region and thigh | + + documented in this encounter"
--- OUTSIDE RECORDS SUMMARY | ~2019-09-08 | XMS | Encounter Summary ---
Demographics + + + | Address | [address] | | | [place] [address] | + + + | Home Phone | | + + + | Preferred Language | Unknown | + + + | Marital Status | Single | + + + | Amish Affiliation | Unknown | + + + | Race | Unknown | + + + | Ethnic Group | Unknown | + + + Author + + + | Author | [facility] | | | and [place] | + + + | Organization | [facility] | | | and [place] | + + + | Address | Unknown | + + + | Phone | Unavailable | + + + Support + + + + + | Name | Relationship | Address | Phone | + + + + + | India Tilley | ECON | [id number] | | | | | [place], [place] | | | | | [address] | | + + + + + | Yina La | ECON | Unknown | | + + + + + | Yina Peterson | ECON | Unknown | | + + + + + | Leatha Casillas | ECON | Unknown | | + + + + + Care Team Providers + +------+ + | Care Tandem Mill Operator Name | Role | Phone | + +------+ + PCP | Unavailable | + +------+ + Encounter Details +--------+ + + + + | Date | Type | Department | Care Team | Description | +--------+ + + + + | 06/18/ | Hospital | [facility] | [place], | [facility] | | 2002 | Encounter | CONVERSION [address] | MD [address] [facility] | | | | | [address] | [place], [place] | | | | | [place], [place] | [address] | | | | | [address] | | | | | | [phone] | | | +--------+ + + + [...] filedocumented as of this encounter Visit Diagnoses + + | Diagnosis | + + | Lumbago | + + documented in this encounter"
--- OUTSIDE RECORDS SUMMARY | ~2019-09-08 | XMS | Encounter Summary ---
Demographics + + + | Address | [address] | | | [place] [address] | + + + | Home Phone | | + + + | Preferred Language | Unknown | + + + | Marital Status | Single | + + + | Restorationism Affiliation | Unknown | + + + | Race | Unknown | + + + | Ethnic Group | Unknown | + + + Author + + + | Author | [facility] | | | and [place] | + + + | Organization | [facility] | | | and [place] | + + + | Address | Unknown | + + + | Phone | Unavailable | + + + Support + + + + + | Name | Relationship | Address | Phone | + + + + + | India Tilley | ECON | [phone] | | | | | [place], [place] | | | | | [address] | | + + + + + | Yina La | ECON | Unknown | | + + + + + | Yina Peterson | ECON | Unknown | | + + + + + | Leatha Casillas | ECON | Unknown | | + + + + + Care Team Providers + +------+ + | Care Internet Sales Consultant Name | Role | Phone | + +------+ + PCP | Unavailable | + +------+ + Encounter Details +--------+ + + + + | Date | Type | Department | Care Team | Description | +--------+ + + + + | 01/15/ | Hospital | [facility] | | | | 2006 - | Encounter | [facility] | | | | | | CENTER [facility] [address] | | | | 02/10/ | | [place] | | | | 2006 | | [address] | | | | | | [phone] | | | +--------+ + + + [...]
--- OUTSIDE RECORDS SUMMARY | ~2019-09-08 | XMS | Encounter Summary ---
Demographics + + + | Address | [address] | | | [place] [address] | + + + | Home Phone | | + + + | Preferred Language | Unknown | + + + | Marital Status | Single | + + + | Yazidi Affiliation | Unknown | + + + | Race | Unknown | + + + | Ethnic Group | Unknown | + + + Author + + + | Author | [facility] | | | and [place] | + + + | Organization | [facility] | | | and [place] | + + + | Address | Unknown | + + + | Phone | Unavailable | + + + Support + + + + + | Name | Relationship | Address | Phone | + + + + + | India Tilley | ECON | [id number] | | | | | [place], [place] | | | | | [address] | | + + + + + | Yina La | ECON | Unknown | | + + + + + | Yina Peterson | ECON | Unknown | | + + + + + | Leatha Casillas | ECON | Unknown | | + + + + + Care Team Providers + +------+ + | Care Warp Worker Name | Role | Phone | + +------+ + PCP | Unavailable | + +------+ + Encounter Details +--------+ + + + + | Date | Type | Department | Care Team | Description | +--------+ + + + + | 01/15/ | Hospital | [facility] | | | | 2006 - | Encounter | MED CTR [facility] | | | | | | CENTER [facility] [address] | | | | 02/10/ | | [place] | | | | 2006 | | [address] | | | | | | [phone] | | | +--------+ + + + [...]
--- OUTSIDE RECORDS SUMMARY | ~2019-09-08 | XMS | Encounter Summary ---
Demographics + + + | Address | [address] | | | [place] [address] | + + + | Home Phone [...] | [facility] | | | and [place] | + + + | Organization | [facility] | | | and [place] | + + + | Address | Unknown | + + + | Phone | Unavailable | + + + Support + + + + + | Name | Relationship | Address | Phone | + + + + + | India Tilley | ECON | [id number] | | | | | [place], [place] | | | | | [address] | | + + + + + | Yina La | ECON | Unknown | | + + + + + | Yina Peterson | ECON | Unknown | | + + + + + | Leatha Casillas | ECON | Unknown | | + + + + + Care Team Providers + +------+ + | Care Transitional Living Specialist Name | Role | Phone | + +------+ + PCP | Unavailable | + +------+ + Reason for Visit Auth/Cert +--------+--------+ + + + + | Status | Reason | Specialty | Diagnoses / | Referred By | Referred To | | | | | Procedures | Contact | Contact | +--------+--------+ + + + + | | | | Diagnoses | | | | | | | Closed | | | | | | | fracture of | | | | | | | neck of | | | | | | | right femur, | | | | | | | initial | | | | | | | encounter | | | | | | | ([facility]) | | | +--------+--------+ + + + + Encounter Details +--------+ + + + + | Date | Type | Department | Care Team | Description | +--------+ + + + + | 12/04/ | Anesthesia | [facility]AD[facility] ROMERO | Petros Garrido | | | 2019 | Event | [facility] | MD Zuleima [address] | | | | [address] | [address] [place] | | | | | [place], [place] | [place] [address] | | | | | [id number] | [phone] | | | | | [phone] | | | +--------+ + + + + Anesthesia Record + + + + + | Procedure Name | Responsible | Anesthesia Start | Anesthesia Stop Time | | | Anesthesiologist | Time | | + + + + + | ORIF HIP | Petros Garrido, | 12/04/18 1610 | 12/04/182 | | W/CANNULATED SCREWS | | | | | (Right Hip) | | | | + + + + + +----+---+ + + | Da | T | Event | Comment | | te | i | | | | | m | | | | | e | | | +----+---+ + + | 03 | 1 | An Checkout | Pre-use anesthesia machine/equipment checkout. | | /2 | 5 | | | | 4/ | 4 | | | | 20 | 5 | | | | 19 | | | | +----+---+ + + | | 1 | Quick Note | Pt transported from ED to OR 6 after getting report from ED RN | | | 5 | | | | | 5 | | | | | 6 | | | +----+---+ + + | | 1 | | | | | 5 | | | | | 5 | | | | | 9 | | | +----+---+ + + | | 1 | An Start | | | | 6 | Data | | | | 0 | | | | | 4 | | | +----+---+ + + | | 1 | Pre-Procedu | | | | 6 | ral Timeout | | | | 0 | Completed | | | | 4 | | | +----+---+ + + | | 1 | Block Start | | | | 6 | | | | | 0 | | | | | 4 | | | +----+---+ + + | | 1 | AN Block | | | | 6 | End | | | | 1 | | | | | 0 | | | +----+---+ + + | | 1 | An Start | Reassessment prior to anesthesia induction/procedure. | | | 6 | | | | | 1 | | | | | 0 | | | +----+---+ + + | | 1 | Preoxygenat | | | | 6 | ed | | | | 1 | | | | | 2 | | | +----+---+ + + | | 1 | An | | | | 6 | Induction | | | | 1 | | | | | 4 | | | +----+---+ + + | | 1 | An | | | | 6 | Intubation | | | | 1 | | | | | 5 | | | +----+---+ + + | | 1 | Antibiotic | | | | 6 | Given | | | | 2 | | | | | 0 | | | +----+---+ + + | | 1 | [place] | | | | 6 | 43-degrees | | | | 3 | | | | | 1 | | | +----+---+ + + | | 1 | First | | | | 6 | Inc/Proc St | | | | 3 | | | | | 4 | | | +----+---+ + + | | 1 | [place] off | | | | 6 | | | | | 5 | | | | | 8 | | | +----+---+ + + | | 1 | AN No | TOF 4/4 with sustained tetanus. | | | 6 | Residual | | | | 5 | NMB | | | | 8 | | | +----+---+ + + | | 1 | Oropharynx | | | | 6 | Suctioned | | | | 5 | | | | | 8 | | | +----+---+ + + | | 1 | Breathing | | | | 6 | Spontaneous | | | | 5 | ly | | | | 8 | | | +----+---+ + + | | 1 | NG/OG LDA | | | | 6 | Removal | | | | 5 | | | | | 8 | | | +----+---+ + + | | 1 | Moving | | | | 7 | Purposefull | | | | 0 | y | | | | 3 | | | +----+---+ + + | | 1 | Extubated | | | | 7 | Awake | | | | 0 | | | | | 3 | | | +----+---+ + + | | 1 | an stop | | | | 7 | data | | | | 0 | | | | | 5 | | | +----+---+ + + | | 1 | Quick Note | Awaiting arrival of PACU team (was not called by charge nurse) | | | 7 | | | | | 1 | | | | | 9 | | | +----+---+ + + | | 1 | An Stop | Patient handed off to recovery nurse. | | | 3 | | | | | 2 | | | +----+---+ + + +------+ | Meds | +------+ + +---------+ | Name | Total | + +---------+ | fentaNYL injection (2 mL) | 200 mcg | + +---------+ | ropivacaine 0.5% | 20 mL | + +---------+ | lidocaine 2% (PF) | 10 mL | + +---------+ | lidocaine 2% | 60 mg | + +---------+ | propofol (DIPRIVAN) injection | 120 mg | | (bolus) (20 mL) | | + +---------+ | dexamethasone | 10 mg | + +---------+ | ondansetron | 4 mg | + +---------+ | ceFAZolin | 1 g | + +---------+ | succinylcholine | 140 mg | + +---------+ | albuterol MDI | 8 puff | + +---------+ | labetalol | 20 mg | + +---------+ | LR (Infusion) | 500 mL | + +---------+ + + | Name | + + | N2O Flow Rate (L/Min) | + + | O2 Flow Rate (L/Min) | + + | Insp O2 | + + | Exp SEV | + + | Air Flow Rate (L/Min) | + + + + | No blood administrations on file. | + + +--------+ + + + | Type | Details | Placement | Removal | +--------+ + + + | Hemodi | 01/04/18; (in or); fistula; | 01/04/18 0000 by | | | alysis | upper arm, right; hemodialysis | Anat Alvarado RN | | +--------+ + + + | Hemodi | 11/08/17; 1237; Yes; | 11/08/17 1237 by | 12/05/18 1643 by | | alysis | Chlorhexidine/Isopropyl Alcohol; | Wendy Zhu RN | User Epic | | | Yes; Yes; All; OR; Observer; | | | | Clarissa | roly; Attending physician; No; | | | | er | New indication for central line | | | | | (e.g., hemodynamic monitoring, | | | | | fluid/medication administration, | | | | | etc.); tunneled; 27 cm; 0; | | | | | 12/05/18 (Removed/Completed by | | | | | utility); 1643 (Removed/Completed | | | | | by utility) | | | +--------+ + + + | Read | 02/04/18; 2227; Right; chest; | 02/04/18 222 by | 12/06/18 1342 by | | only - | 12/06/18 (Completed/Removed by | Dyan Card RN | User Epic | | | Utility); 1342 (Completed/Removed | | | | Incisi | by Utility) | | | | on | | | | +--------+ + + + | Periph | 12/04/18; 1404; Left; Hand; | 12/04/18 1404 by | 12/09/18 182 by | | eral | [id number] catheter system; | Priti Burleson RN | Nidia Castano, | | IV | 22 gauge, 1 in length; | | RN | | | Hematology, Chemistry, | | | | | Coagulation; 1; tolerated well; | | | | | catheter/device intact; short | | | | | term use; 12/09/18; 1824 | | | +--------+ + + + | Urethr | 12/04/18; 1556; indicated due to | 12/04/18 1556 by | 12/06/18 1050 by | | al | specific surgical procedure; All | Priti Burleson RN | Macie Redding RN | | Cathet | elements; All elements; All | | | | er | elements; indwelling single lumen | | | | | catheter; 14; None; 0; 10; 10; | | | | | none; leg bag to dependent | | | | | drainage; short term use; | | | | | 12/06/18; 1050 | | | +--------+ + + + | Airway | Placement Date: 12/04/18; | 12/04/18 161 by Tor | 12/04/18 170 by Tor | | | Placement Time: 1614 (created via | Zuleima Garrido MD | Zuleima Garrido MD | | | procedure documentation); Mask | | | | | Ventilation: N/A; Airway Grade: | | | | | 1; External Maneuvers: CP; | | | | | Successful Technique: video | | | | | scope; Laryngoscope Blade Size: | | | | | 3; Attempts: 1; Airway Type: | | | | | endotracheal; Size: 6.5; Airway | | | | | Tube Secured At: 21; Trauma: | | | | | none; Other Equipment: stylette; | | | | | Placement Check: exhaled CO2 | | | | | detection device; Removal Date: | | | | | 12/04/18; Removal Time: 170 | | | +--------+ + + + | NG/OG | 12/04/18; 1630 (created via | 12/04/18 163 by Tor | 12/04/18 165 by Tor | | | procedure documentation); | Zuleima Garrido MD | Zuleima Garrido MD | | | orogastric; 18; 50; center mouth; | | | | | other (see comments); stomach; | | | | | gastric decompression; 12/04/18; | | | | | 1657 | | | +--------+ + + + | Wound | 12/04/18; 1641; Incision; Right; | 12/04/181641 by | 12/09/181824 by | | | hip; Healing; 12/09/18; 1824 | Erma Sheehan RN | Nidia Castano, | | | | | RN | +--------+ + + + documented in this encounter Social History + +-------+ +--------+------+ | Tobacco [...] | + +--------+ + + + | ANE AIRWAY NOTE | Routin | 12/04/2018 | | Results for this | | | e | 4:44 PM | | procedure are in the | | | | PDT | | results section. | + +--------+ + + + | ANE NASO/ORAL TUBE | Routin | 12/04/2018 | | Results for this | | NOTE | e | 4:40 PM | | procedure are in the | | | | PDT | | results section. | + +--------+ + + + | ANE NERVE BLOCK | Routin | 12/04/2018 | | Results for this | | CATHETER NOTE | e | 4:36 PM | | procedure are in the | | | | PDT | | results section. | + +--------+ + + + | ANE NERVE BLOCK | Routin | 12/04/2018 | | Results for this | | CATHETER NOTE | e | 4:35 PM | | procedure are in the | | | | PDT | | results section. | + +--------+ + + + documented in this encounter Results Anesthesia Airway Note (12/04/2018 4:44 PM PDT) + + + | Narrative | Performed At | + + + | Petros Garrido MD 12/04/2018 16:44 Anesthesia Airway | | | Placement 12/04/2018 16:15 Preprocedure check: patient identified, | | | oxygen, airway assessed, patient reassessment prior to induction, | | | airway equipment checked and suction Rapid Sequence Induction: yes | | | Mask ventilation: N/A External maneuver: cricoid pressure | | | Successful technique: videoscope Laryngoscope blade size: 3 | | | Airway grade: 1 (Full view of glottis) Other equipment: stylette | | | Attempts: 1 Airway type: endotracheal Size: 6.5 Cuffed: cuffed | | | Route, reference point: right side of mouth Tube depth: 21 cm Tube | | | secured with: adhesive tape Trauma: none Tube placement | | | verification: carbon dioxide detection Performing provider: RADHIKA | | | PETROS ECHOLS Electronically Signed by: Petros Garrido MD | | | ESig date/time: 12/04/2018 16:44 | | | | | + + + + + | Procedure Note | + + | Petros Garrido MD - 12/04/2018 4:44 PM PDT Anesthesia Airway | | Placement12/04/2018 16:15Preprocedure check: patient identified, oxygen, airway assessed, | | patient reassessment prior to induction, airway equipment checked and suctionRapid | | Sequence Induction: yesMask ventilation: N/AExternal maneuver: cricoid | | pressureSuccessful technique: videoscopeLaryngoscope blade size: 3 Airway grade: 1 | | (Full view of glottis)Other equipment: styletteAttempts: 1Airway type: endotrachealSize: | | 6.5Cuffed: cuffedRoute, reference point: right side of mouthTube depth: 21 cmTube | | secured with: adhesive tapeTrauma: noneTube placement verification: carbon dioxide | | detectionPerforming provider: PETROS GARRIDOectronically Signed by: Petros Pulido | | MD Radhika ESig date/time: 12/04/2018 16:44 | |Other equipment: stylette | |Attempts: 1 | |Airway type: endotracheal | |Size: 6.5 | |Cuffed: cuffed | |Route, reference point: right side of mouth | |Tube depth: 21 cm | |Tube secured with: adhesive tape | |Trauma: none | |Tube placement verification: carbon dioxide detection | |Performing provider: PETROS GARRIDO | | | | | |Electronically Signed by: Petros Garrido MD ESig date/time: 11/12 16:44 | | | + + NG/OG (12/04/2018 4:40 PM PDT) + + + | Narrative | Performed At | + + + | Petros Garrido MD 12/04/2018 16:40 naso/orogastric | | | Placement Note 12/04/2018 16:30 Indication: gastric decompression | | | and per surgeon request Tube type: Orogastric Size: 18 Fr Depth: 50 | | | cm Location: mouth Pain prevention: general anesthesia | | | Destination: stomach Tube position checked by: content aspiration | | | Suction: low suction Placed by: PETROS GARRIDO | | | Electronically Signed by:Petros Garrido MD | | | ESig date/time: 12/04/2018 16:40 | | + + + + -------+ | Procedure Note | + -------+ | Petros Garrido MD - 12/04/2018 4:40 PM PDT naso/orogastric Placement | | Note12/04/2018 16:30Indication: gastric decompression and per surgeon requestTube type: | | OrogastricSize: 18 FrDepth: 50 cmLocation: mouthPain prevention: general | | anesthesiaDestination: stomachTube position checked by: content aspirationSuction: low | | suctionPlaced by: PETROS GARRIDOectronically Signed by:Petros Garrido MD | | ESig date/time: 12/04/2018 16:40 | |Depth: 50 cm | |Location: mouth | |Pain prevention: general anesthesia | |Destination: stomach | |Tube position checked by: content aspiration | |Suction: low suction | |Placed by: PETROS GARRIDO | | | | | |Electronically Signed by:Petros Garrido MD ESig date/time: 12/04/2018 16:40 | + -------+ Anesthesia Perineural Note (12/04/2018 4:36 PM PDT) + + + | Narrative | Performed At | + + + | Petros Garrido MD 12/04/2018 16:36 Perineural Procedure | | | Note 12/04/2018 16:10 Nerve block: obturator Laterality: right | | | Provider requested procedure: Dr. Koroma Indication: postoperative | | | analgesia Preprocedure check: patient identified, procedure and | | | rescue equipment checked, preevaluation including airway assessment | | | complete, risks/benefits discussed, consent obtained, timeout | | | performed, reassessment prior to procedure and monitors applied | | | Patient position: supine Preparation: chlorhexidine/isopropyl | | | alcohol, 1% lidocaine infiltration Technique: ultrasound Radiology | | | image stored in patient's chart: ultrasound Needle: echogenic, | | | stimulating, insulated and short-bevel Needle size: 21 g Needle | | | length: 4 in Medication administered through: needle Negative | | | findings: no blood aspirated and no paresthesia Total volume of local | | | anesthetic solution administered: 15 mL Attempts: 1 Ease of | | | procedure: easy Comments: SpO2, NBP monitored during procedure and | | | recorded in anesthesia record. Ultrasound used to identify | | | femoral artery and femoral vein, then probe moved medially to | | | identify adductors longus, brevus and medius muscles. Under | | | continuous ultrasound guidance the Stimuplex needle was advanced to | | | the plane between adductors longus and brevis to target the anterior | | | branch of the obturator nerve, with needle tip visualized | | | throughout. Local anesthetic was injected in 5 ml increments in the | | | fascial plane with intermittent negative aspiration and no | | | paresthesias. Under continuous ultrasound guidance the Stimuplex | | | needle was then advanced to the plane between adductors brevis and | | | medius to target the posterior branch of the obturator nerve, with | | | needle tip visualized throughout. Local anesthetic was injected in 5 | | | ml increments in the fascial plane with intermittent negative | | | aspiration and no paresthesias. Ultrasound image placed in chart. | | | Please see anesthesia record or flowsheet for vital sign | | | documentation and see anesthesia record or MAR for all medication | | | documentation. Performing provider: PETROS GARRIDO | | | Electronically Signed by: Petros Garrido MD | | | ESig date/time: 12/04/2018 16:36 | | + + + + + | Procedure Note | + + | Petros Garrido MD - 12/04/2018 4:36 PM PDT Perineural Procedure Note12/04/2018 | | 16:10Nerve block: obturatorLaterality: rightProvider requested procedure: | | WillardIndication: postoperative analgesiaPreprocedure check: patient identified, | | procedure and rescue equipment checked, preevaluation including airway assessment | | complete, risks/benefits discussed, consent obtained, timeout performed, reassessment | | prior to procedure and monitors appliedPatient position: supinePreparation: | | chlorhexidine/isopropyl alcohol, 1% lidocaine infiltrationTechnique: ultrasoundRadiology | | image stored in patient's chart: ultrasoundNeedle: echogenic, stimulating, insulated | | and short-bevelNeedle size: 21 gNeedle length: 4 inMedication administered through: | | needleNegative findings: no blood aspirated and no paresthesiaTotal volume of local | | anesthetic solution administered: 15 mLAttempts: 1Ease of procedure: easyComments: SpO2, | | NBP monitored during procedure and recorded in anesthesia record. Ultrasound used to | | identify femoral artery and femoral vein, then probe moved medially to identify | | adductors longus, brevus and medius muscles. Under continuous ultrasound guidance the | | Stimuplex needle was advanced to the plane between adductors longus and brevis to target | | the anterior branch of the obturator nerve, with needle tip visualized throughout. | | Local anesthetic was injected in 5 ml increments in the fascial plane with intermittent | | negative aspiration and no paresthesias. Under continuous ultrasound guidance the | | Stimuplex needle was then advanced to the plane between adductors brevis and medius to | | target the posterior branch of the obturator nerve, with needle tip visualized | | throughout. Local anesthetic was injected in 5 ml increments in the fascial plane with | | intermittent negative aspiration and no paresthesias. Ultrasound image placed in | | chart.Please see anesthesia record or flowsheet for vital sign documentation and see | | anesthesia record or MAR for all medication documentation.Performing provider: RADHIKA | | PETROS Tarangoectronically Signed by: MD Eleazar Jaramillo | | date/time: 12/04/2018 16:36 | | | | | | | |Please see anesthesia record or flowsheet for vital sign documentation and see anesthesia r ecord or MAR for all medication documentation. | | | | | |Performing provider: PETROS GARRIDO | | | | | | | |Electronically Signed by: MD Eleazar Jaramillo date/time: 12/04/2018 16:36 | + + Anesthesia Perineural Note (12/04/2018 4:35 PM PDT) + + + | Narrative | Performed At | + + + | Petros Garrido MD 12/04/2018 16:36 Perineural Procedure | | | Note 12/04/2018 16:09 Nerve block: femoral Laterality: right | | | Continuous block with catheter: No Provider requested procedure: | | | Ga Indication: postoperative analgesia Preprocedure check: | | | patient identified, procedure and rescue equipment checked, | | | preevaluation including airway assessment complete, risks/benefits | | | discussed, consent obtained, timeout performed, reassessment prior | | | to procedure and monitors applied Patient position: supine | | | Preparation: chlorhexidine/isopropyl alcohol, 1% lidocaine | | | infiltration Technique: ultrasound Radiology image stored in | | | patient's chart: ultrasound Needle: echogenic, stimulating, insulated | | | and short-bevel Needle size: 21 g Needle length: 4 in Medication | | | administered through: needle Negative findings: no blood aspirated | | | and no paresthesia Total volume of local anesthetic solution | | | administered: 15 mL Attempts: 1 Ease of procedure: easy | | | Comments: SpO2, NBP monitored during procedure and recorded in | | | anesthesia record. Ultrasound used to identify femoral artery and | | | femoral nerve. Under ultrasound guidance, a 21 gauge needle was | | | inserted and placed in close proximity to the femoral nerve. | | | Ultrasound was also used to visualize the spread of the anesthetic | | | in close proximity to the nerve being blocked with needle tip | | | visualized throughout Local anesthetic was injected in 5 ml | | | increments around the femoral nerve with intermittent negative | | | aspiration and no paresthesias. The nerve appeared anatomically | | | normal, and there were no apparent abnormal pathological findings. A | | | permanent ultrasound image was saved in the patient's record. | | | Please see anesthesia record or flowsheet for vital sign | | | documentation and see anesthesia record or MAR for all medication | | | documentation. Performing provider: PETROS GARRIDO | | | Electronically Signed by: Petros Garrido MD | | | ESig date/time: 12/04/2018 16:35 | | + + + + + | Procedure Note | + + | Petros Garrido MD - 12/04/2018 4:35 PM PDT Perineural Procedure Note12/04/2018 | | 16:09Nerve block: femoralLaterality: rightContinuous block with catheter: NoProvider | | requested procedure: Dr. Orozcoication: postoperative analgesiaPreprocedure check: | | patient identified, procedure and rescue equipment checked, preevaluation including | | airway assessment complete, risks/benefits discussed, consent obtained, timeout | | performed, reassessment prior to procedure and monitors appliedPatient position: | | supinePreparation: chlorhexidine/isopropyl alcohol, 1% lidocaine infiltrationTechnique: | | ultrasoundRadiology image stored in patient's chart: ultrasoundNeedle: echogenic, | | stimulating, insulated and short-bevelNeedle size: 21 gNeedle length: 4 inMedication | | administered through: needleNegative findings: no blood aspirated and no | | paresthesiaTotal volume of local anesthetic solution administered: 15 mLAttempts: 1Ease | | of procedure: easyComments: SpO2, NBP monitored during procedure and recorded in | | anesthesia record. Ultrasound used to identify femoral artery and femoral nerve. Under | | ultrasound guidance, a 21 gauge needle was inserted and placed in close proximity to the | | femoral nerve. Ultrasound was also used to visualize the spread of the anesthetic in | | close proximity to the nerve being blocked with needle tip visualized throughout Local | | anesthetic was injected in 5 ml increments around the femoral nerve with intermittent | | negative aspiration and no paresthesias. The nerve appeared anatomically normal, and | | there were no apparent abnormal pathological findings. A permanent ultrasound image was | | saved in the patient's record. Please see anesthesia record or flowsheet for vital sign | | documentation and see anesthesia record or MAR for all medication | | documentation.Performing provider: PETROS GARRIDOectronically Signed by: Petros Pulido | | MD Radhika ESig date/time: 12/04/2018 16:35 | |close proximity to the femoral nerve. Ultrasound was also used to visualize the spread of t he anesthetic in close proximity to the nerve being blocked with needle tip visualized [email or web address] karen Local anesthetic was | |injected in 5 ml increments around the femoral nerve with intermittent negative aspiration and no paresthesias. The nerve appeared anatomically normal, and there were no apparent abno rmal pathological findings. A | |permanent ultrasound image was saved in the patient's record. | | | | | | | |Please see anesthesia record or flowsheet for vital sign documentation and see anesthesia r ecord or MAR for all medication documentation. | | | | | |Performing provider: PETROS GARRIDO | | | | | | | |Electronically Signed by: MD Eleazar Jaramillo date/time: 12/04/2018 16:35 | + + documented in this encounter Visit Diagnoses Not on filedocumented in this encounter Administered Medications + +--------+ +---------+------+------+ | Medication Order | MAR | Action | Dose | Rate | Site | | | Action | Date | | | | + +--------+ +---------+------+------+ | albuterol 90 mcg/puff inhaler | Given | 12/05/19 | 8 puffs | | | | Inhalation, PRN, Shortness of | | 19 5:01 | | | | | Breath, Starting Freedom 12/04/18 at | | PM PDT | | | | | 1701, Anesthesia Intra-op | | | | | | + +--------+ +---------+------+------+ +---+---+ | | | +---+---+ + +-------+ +-----+---+---+ | ceFAZolin (ANCEF, KEFZOL) | Given | 12/05/19 | 1 g | | | | injection Intravenous, PRN, | | 19 4:20 | | | | | Starting Freedom 12/04/18 at 1620, | | PM PDT | | | | | Anesthesia Intra-op | | | | | | + +-------+ +-----+---+---+ +---+---+ | | | +---+---+ + +-------+ +-------+---+---+ | dexamethasone (PF) 10 mg/mL | Given | 12/05/19 | 10 mg | | | | injection Intravenous, PRN, | | 19 4:18 | | | | | Starting 12/04/18 at 1618, | | PM PDT | | | | | Anesthesia Intra-op | | | | | | + +-------+ +-------+---+---+ +---+---+ | | | +---+---+ + +-------+ +--------+---+---+ | fentaNYL (PF) injection PRN, | Given | 12/05/19 | 50 mcg | | | | Pain, Starting 12/04/18 at | | 19 5:33 | | | | | 1633, Anesthesia Intra-op | | PM PDT | | | | + +-------+ +--------+---+---+ +-------+ +--------+---+---+ | Given | 12/05/19 | 50 mcg | | | | | 19 5:25 | | | | | | PM PDT | | | | +-------+ +--------+---+---+ | Given | 12/05/19 | 50 mcg | | | | | 19 4:33 | | | | | | PM PDT | | | | +-------+ +--------+---+---+ +---+---+ | | | +---+---+ + +-------+ +-------+---+---+ | labetalol (TRANDATE) 5 mg/mL | Given | 12/05/19 | 10 mg | | | | injection Intravenous, PRN, | | 19 5:33 | | | | | Starting 12/04/18 at 1719, | | PM PDT | | | | | Anesthesia Intra-op | | | | | | + +-------+ +-------+---+---+ +-------+ +------+---+---+ | Given | 12/05/19 | 5 mg | | | | | 19 5:25 | | | | | | PM PDT | | | | +-------+ +------+---+---+ | Given | 12/05/19 | 5 mg | | | | | 19 5:19 | | | | | | PM PDT | | | | +-------+ +------+---+---+ +---+---+ | | | +---+---+ + +---------+ +---+---+---+ | lactated ringers (LR) infusion | New Bag | 12/05/19 | | | | | Intravenous, CONTINUOUS PRN, | | 19 4:04 | | | | | Starting Freedom 12/04/18 at 1604, | | PM PDT | | | | | Anesthesia Intra-op | | | | | | + +---------+ +---+---+---+ +---+---+ | | | +---+---+ + +-------+ +-------+---+---+ | lidocaine (PF) 2% injection | Given | 12/05/19 | 5 mLs | | | | PRN, Starting 12/04/18 at | | 19 4:10 | | | | | 1606, Anesthesia Intra-op | | PM PDT | | | | + +-------+ +-------+---+---+ +-------+ +-------+---+---+ | Given | 12/05/19 | 5 mLs | | | | | 19 4:06 | | | | | | PM PDT | | | | +-------+ +-------+---+---+ +---+---+ | | | +---+---+ + +-------+ +-------+---+---+ | lidocaine (PF) 2% injection | Given | 12/05/19 | 60 mg | | | | Intravenous, PRN, Starting Sun | | 19 4:14 | | | | | 12/04/18 at 1614, Anesthesia | | PM PDT | | | | | Intra-op | | | | | | + +-------+ +-------+---+---+ +---+---+ | | | +---+---+ + +-------+ +------+---+---+ | ondansetron (ZOFRAN) injection | Given | 03/24/20 | 4 mg | | | | PRN, Nausea, Vomiting, Starting | | 19 4:18 | | | | | 12/04/18 at 1618, Anesthesia | | PM PDT | | | | | Intra-op | | | | | | + +-------+ +------+---+---+ +---+---+ | | | +---+---+ + +-------+ +--------+---+---+ | propofol (DIPRIVAN) injection | Given | 12/05/19 | 120 mg | | | | PRN, Starting 12/04/18 at | | 19 4:14 | | | | | 1614, Anesthesia Intra-op | | PM PDT | | | | + +-------+ +--------+---+---+ +---+---+ | | | +---+---+ + +-------+ +--------+---+---+ | ropivacaine (NAROPIN) 5 mg/mL | Given | 12/05/19 | 10 mLs | | | | (0.5%) injection PERINEURAL, | | 19 4:10 | | | | | PRN, Starting Freedom 12/04/18 at | | PM PDT | | | | | 1606, Anesthesia Intra-op | | | | | | + +-------+ +--------+---+---+ +-------+ +--------+---+---+ | Given | 12/05/19 | 10 mLs | | | | | 19 4:06 | | | | | | PM PDT | | | | +-------+ +--------+---+---+ +---+---+ | | | +---+---+ + +-------+ +--------+---+---+ | succinylcholine (ANECTINE) | Given | 12/05/19 | 140 mg | | | | injection Intravenous, PRN, | | 19 4:14 | | | | | Starting Freedom 12/04/18 at 1614, | | PM PDT | | | | | Anesthesia Intra-op | | | | | | + +-------+ +--------+---+---+ +---+---+ | | | +---+---+ documented in this encounter"
--- OUTSIDE RECORDS SUMMARY | ~2019-09-08 | XMS | Encounter Summary ---
Demographics + + + | Address | [address] | | | [place] [address] | + + + | Home Phone | | + + + | Preferred Language | Unknown | + + + | Marital Status | Single | + + + | Roman Catholic Affiliation | Unknown | + + + | Race | Unknown | + + + | Ethnic Group | Unknown | + + + Author + + + | Author | [facility] | | | and [place] | + + + | Organization | [facility] | | | and [place] | + + + | Address | Unknown | + + + | Phone | Unavailable | + + + Support + + + + + | Name | Relationship | Address | Phone | + + + + + | India Tilley | ECON | [id number] | | | | | [place], [place] | | | | | [address] | | + + + + + | Yina La | ECON | Unknown | | + + + + + | Yina Peterson | ECON | Unknown | | + + + + + | Leatha Casillas | ECON | Unknown | | + + + + + Care Team Providers + +------+ + | Care Electric Dolly Operator Name | Role | Phone | + +------+ + PCP | Unavailable | + +------+ + Reason for Visit +---------+ + | Reason | Comments | +---------+ + | Post Op | dialysis catheter fell out. | +---------+ + Encounter Details +--------+ + + + + | Date | Type | Department | Care Team | Description | +--------+ + + + + | 02/04/ | Telephone | [facility] | Santos Stephenson | Post Op (dialysis | | 2017 | | SURGERY [address] | MD Kinga, FACS [address] | catheter fell out. ) | | | | [place], [place] | [address] [facility] | | | | | [address] | [place] [address] | | | | | [phone] | [phone] | | | | | | | [...]
--- OUTSIDE RECORDS SUMMARY | ~2019-09-08 | XMS | Encounter Summary ---
Demographics + + + | Address | [address] | | | [place] [address] | + + + | Home Phone | | + + + | Preferred Language | Unknown | + + + | Marital Status | Single | + + + | Mosque Affiliation | Unknown | + + + | Race | Unknown | + + + | Ethnic Group | Unknown | + + + Author + + + | Author | [facility] | | | and [place] | + + + | Organization | [facility] | | | and [place] | + + + | Address | Unknown | + + + | Phone | Unavailable | + + + Support + + + + + | Name | Relationship | Address | Phone | + + + + + | India Tilley | ECON | [address] | | | | | [place], [place] | | | | | [address] | | + + + + + | Yina La | ECON | Unknown | | + + + + + | Yina Peterson | ECON | Unknown | | + + + + + | Leatha Casillas | ECON | Unknown | | + + + + + Care Team Providers + +------+ + | Care Vp Clinical Name | Role | Phone | + +------+ + PCP | Unavailable | + +------+ + Reason for Visit + + + | Reason | Comments | + + + | Surgery Appointment | | + + + Encounter Details +--------+ + + + + | Date | Type | Department | Care Team | Description | +--------+ + + + + | 01/03/ | Telephone | [facility] | Santos Stephenson | Surgery Appointment | | 2018 | | SURGERY [address] | MD Kinga, FACS [address] | | | | | [place], [place] | [address] [facility] | | | | | [address] | [place] [address] | | | | | [phone] | [phone] | | | | | | | [...]
--- OUTSIDE RECORDS SUMMARY | ~2019-09-08 | XMS | Encounter Summary ---
Demographics + + + | Address | [address] | | | [place] [address] | + + + | Home Phone [...] Author + + + | Author | [facility] | | | and [place] | + + + | Organization | [facility] | | | and [place] | + + + | Address | Unknown | + + + | Phone | Unavailable | + + + Support + + + + + | Name | Relationship | Address | Phone | + + + + + | India Tilley | ECON | [address] | | | | | [place], [place] | | | | | [address] | | + + + + + | Yina La | ECON | Unknown | | + + + + + | Yina Peterson | ECON | Unknown | | + + + + + | Leatha Casillas | ECON | Unknown | | + + + + + Care Team Providers + +------+ + | Care Service Order Taker Name | Role | Phone | + +------+ + PCP | Unavailable | + +------+ + Reason for Visit +--------+ + | Reason | Comments | +--------+ + | Other | | +--------+ + Encounter Details +--------+ + + + + | Date | Type | Department | Care Team | Description | +--------+ + + + + | 04/05/ | Telephone | [facility] | Jesus Whitney | Other | | 2019 | | INFECTIOUS DISEASES | MD Lauro [address] | | | | | [address] | [place] | | | | | [place] | [address] | | | | | [address] | | | | | | [phone] | | | +--------+ + + + [...]
--- OUTSIDE RECORDS SUMMARY | ~2019-09-08 | XMS | Encounter Summary ---
Demographics + + + | Address | [address] | | | [place] [address] | + + + | Home Phone | | + + + | Preferred Language | Unknown | + + + | Marital Status | Single | + + + | Temple Affiliation | Unknown | + + + | Race | Unknown | + + + | Ethnic Group | Unknown | + + + Author + + + | Author | [facility] | | | and [place] | + + + | Organization | [facility] | | | and [place] | + + + | Address | Unknown | + + + | Phone | Unavailable | + + + Support + + + + + | Name | Relationship | Address | Phone | + + + + + | India Tilley | ECON | [address] | | | | | [place], [place] | | | | | [address] | | + + + + + | Yina La | ECON | Unknown | | + + + + + | Yina Peterson | ECON | Unknown | | + + + + + | Leatha Casillas | ECON | Unknown | | + + + + + Care Team Providers + +------+ + | Care Home Appliance Tech Name | Role | Phone | + +------+ + PCP | Unavailable | + +------+ + Reason for Visit + + + | Reason | Comments | + + + | Vascular Access | | | Problem | | + + + Encounter Details +--------+ + + + + | Date | Type | Department | Care Team | Description | +--------+ + + + + | 02/04/ | Telephone | [facility] | Gopi Muñoz | Vascular Access | | 2018 | | NEPHROLOGY [address] | M, DO [address] | Problem | | | | [address] | [place] | | | | | [place] | [place] | | | | | [address] | [address] | | | | | [phone] | | | +--------+ + + + [...]
--- OUTSIDE RECORDS SUMMARY | ~2019-09-08 | XMS | Encounter Summary ---
Demographics + + + | Address | [address] | | | [place] [address] | + + + | Home Phone | | + + + | Preferred Language | Unknown | + + + | Marital Status | Single | + + + | Samaritan Affiliation | Unknown | + + + | Race | Unknown | + + + | Ethnic Group | Unknown | + + + Author + + + | Author | [facility] | | | and [place] | + + + | Organization | [facility] | | | and [place] | + + + | Address | Unknown | + + + | Phone | Unavailable | + + + Support + + + + + | Name | Relationship | Address | Phone | + + + + + | India Tilley | ECON | [address] | | | | | [place], [place] | | | | | [address] | | + + + + + | Yina La | ECON | Unknown | | + + + + + | Yina Peterson | ECON | Unknown | | + + + + + | Leatha Casillas | ECON | Unknown | | + + + + + Care Team Providers + +------+ + | Care Head School Custodian Name | Role | Phone | + +------+ + | Renato villarreal DIPESH | PCP | | + +------+ + Reason for Visit + + + | Reason | Comments | + + + | Procedure | no show | + + + Encounter Details +--------+ + + + + | Date | Type | Department | Care Team | Description | +--------+ + + + + | 08/17/ | Telephone | [facility] | Louise Fink, | Procedure (no show) | | 2019 | | VASCULAR SURGERY | RN | | | | | [address] | | | | | | [place] | | | | | | [address] | | | | | | [phone] | | | +--------+ + + + [...]
--- OUTSIDE RECORDS SUMMARY | ~2019-09-08 | XMS | Encounter Summary ---
Demographics + + + | Address | [address] | | | [place] [address] | + + + | Home Phone | | + + + | Preferred Language | Unknown | + + + | Marital Status | Single | + + + | Druze Affiliation | Unknown | + + + | Race | Unknown | + + + | Ethnic Group | Unknown | + + + Author + + + | Author | [facility] | | | and [place] | + + + | Organization | [facility] | | | and [place] | + + + | Address | Unknown | + + + | Phone | Unavailable | + + + Support + + + + + | Name | Relationship | Address | Phone | + + + + + | India Tilley | ECON | [address] | | | | | [place], [place] | | | | | [address] | | + + + + + | Yina La | ECON | Unknown | | + + + + + | Yina Peterson | ECON | Unknown | | + + + + + | Leatha Casillas | ECON | Unknown | | + + + + + Care Team Providers + +------+ + | Care Cable Assembler Name | Role | Phone | + +------+ + PCP | Unavailable | + +------+ + Encounter Details +--------+ + + + + | Date | Type | Department | Care Team | Description | +--------+ + + + + | 11/08/ | Imaging | [facility] | Provider, | | | 2018 | Exam | [facility] | [address] | | | | | IMAGING | [address] | | | | | [phone] | [place] [address] | | +--------+ + + + + [...] XR CHEST 2 VIEWS | Routin | 06/24/2006 | | Results for this | | | e | 1:30 PM | | procedure are in the | | | | PDT | | results section. | + +--------+ + + + documented in this encounter Results XR Chest 2 VW (06/24/2006 1:30 PM PDT) + + | Specimen | + + | | + + + + + | Narrative | Performed At | + + + | External films for comparison only - no result from [place]. | [facility] | + + + + +---------+ + + | Performing | Address | City/State/Zipcode | Phone Number | | Organization | | | | + +---------+ + + | [facility] | | | | + +---------+ + + documented in this encounter Visit Diagnoses Not on filedocumented in this encounter"
--- OUTSIDE RECORDS SUMMARY | ~2019-09-08 | XMS | Encounter Summary ---
Demographics + + + | Address | [address] | | | [place] [address] | + + + | Home Phone | | + + + | Preferred Language | Unknown | + + + | Marital Status | Single | + + + | Catholic Affiliation | Unknown | + + + | Race | Unknown | + + + | Ethnic Group | Unknown | + + + Author + + + | Author | [facility] | | | and [place] | + + + | Organization | [facility] | | | and [place] | + + + | Address | Unknown | + + + | Phone | Unavailable | + + + Support + + + + + | Name | Relationship | Address | Phone | + + + + + | India Campos | ECON | [id number] | | | | | [place], [place] | | | | | [address] | | + + + + + | Yina La | ECON | Unknown | | + + + + + | Yina Peterson | ECON | Unknown | | + + + + + | Leatha Casillas | ECON | Unknown | | + + + + + Care Team Providers + +------+ + | Care Big Data Engineer Name | Role | Phone | [...] | | | | | | | CHF, acute | | | | | | | (HCC) CHF, | | | | | | | acute (HCC) | | | | | | | [I50.9] | | | +--------+--------+ + + + + Encounter Details +--------+ + + + + | Date | Type | Department | Care Team | Description | +--------+ + + + + | 10/01/ | Hospital | [facility] | Olegario Peng, | Hypertensive | | 2018 - | Encounter | [facility] | [address] | emergency; Chest | | | | [address] [place] | [place] | pain, unspecified | | 10/06/ | | [place] [address] | [id number] | type; Leg swelling; | | 2017 | | [phone] | | CKD (chronic kidney | | | | | Rupal Laguna MD | disease), stage IV | | | | | [address] | (HCC); Type 2 | | | | | [place] | diabetes mellitus | | | | | [id number] | with stage 4 chronic | | | | | | kidney disease, | | | | | Nikhil Vega, | with long-term | | | | | MD Mayelin [address] | current use of | | | | | [address] [place] | insulin (HCC); | | | | | [place] [address] | Anemia of chronic | | | | | [phone] | renal failure, stage | | | | | | 4 (severe) (HCC) | +--------+ + + + + Social [...] + + + | Blood Pressure | 140/50 | 10/06/2017 7:15 AM | | | | | PST | | + + + + + | Pulse | 66 | 10/06/2017 7:15 AM | | | | | PST | | + + + + + | Temperature | 36.7 C (98.1 F) | 10/06/2017 7:15 AM | | | | | PST | | + + + + + | Respiratory Rate | 16 | 10/06/2017 6:17 AM | | | | | PST | | + + + + + | Oxygen Saturation | 100% | 10/06/2017 7:15 AM | | | | | PST | | + + + + + | Inhaled Oxygen | - | - | | | Concentration | | | | + + + + + | Weight | 83.2 kg (183 lb 6.8 | 10/05/2017 10:25 PM | | | | oz) | PST | | + + + + + | Height | 172.7 cm (5' 8") | 10/01/2017 9:00 PM | | | | | PST | | + + + + + | Body Mass Index | 27.89 | 10/01/2017 9:00 PM | | | | | PST | | + + + + + documented in this encounter Discharge Summaries Edison Keys MD - 10/06/2017 10:38 AM PST [facility] DISCHARGE SUMMARY Pt. Name/Age/: Estefani Campos 72 y.o. 1945 Date of Admission: 10/01/2017 Date of Discharge: 10/06/2017 Admitting Physician: Olegario Peng MD Primary Care Provider: Nan Bruno PA-C Discharging Physician: Edison Keys MD DISCHARGE DIAGNOSES: 1. Hypertensive emergency with chest pain and fluid overload insistent with pulmonary francine a 2. Chronic kidney disease, stage IV with likely nephrotic range proteinuria 3. Essential hypertension 4. Type II diabetes mellitus, insulin treated 5. Anemia of chronic disease DISCHARGE MEDICATIONS: Discharge Medications New Medications Details amLODIPine 10 MG tablet Take 1 tablet by mouth Daily. aka: NORVASC Start: 10/07/2017 labetalol 200 mg tablet Take 1 tablet by mouth 2 times daily. aka: NORMODYNE Changed Medications Details furosemide 80 mg tablet Take 1 tablet by mouth Daily. What changed: medication strength how much to take aka: LASIX Start: 10/07/2017 insulin glargine 100 units/mL injection (vial) Take 20 units SQ each morning increasing to home regimen(30 units) for increasing blood bates gar What changed: how much to take how to take this when to take this additional instructions aka: LANTUS loratadine 10 mg tablet Take 1 tablet by mouth Daily as needed for Allergies. What changed: when to take this reasons to take this aka: CLARITIN losartan 25 mg tablet Take 1 tablet by mouth Daily. What changed: medication strength how much to take aka: COZAAR Start: 10/07/2017 Unchanged Medications Details artificial tears ophthalmic ointment Place into both eyes every hour as needed for Dry Eyes. aspirin 325 mg EC tablet Take 325 mg by mouth Daily. atorvaSTATin 20 mg tablet Take 20 mg by mouth nightly. aka: LIPITOR CALCIUM 600-D 600 mg-400 units per tablet Generic drug: calcium-vitamin D Take 1 tablet by mouth 2 times daily. DULoxetine [address] capsule Take 1 capsule by mouth Daily. aka: CYMBALTA Start: 10/07/2017 gabapentin 100 mg capsule Take 200 mg by mouth 2 times daily. Morning and evening aka: NEURONTIN gabapentin 100 mg capsule Take 100 mg by mouth Daily (at Noon). As needed aka: NEURONTIN levothyroxine 75 MCG tablet Take 75 mcg by mouth every morning (before breakfast). aka: SYNTHROID OASIS MOISTURIZING MOUTHWASH MT Take 1 oz by mouth 2 times daily. pantoprazole 40 mg tablet Take 40 mg by mouth every morning (before breakfast). aka: PROTONIX Discontinued Medications acetaminophen 325 mg tablet aka: TYLENOL DISCHARGE INSTRUCTIONS: Follow-up Information Gopi Muñoz DO On 11/08/2017. Specialty: Nephrology Why: at 4:30PM, at the [facility], [address], [place], [place], ([phone]). Contact information: [address] [facility], [facility] [address] [facility] [address] Santos Stephenson MD, FACS In 2 weeks. Specialties: General Surgery, Vascular Surgery Why: Dr. Stephenson's Office, the Vascular Surgeon, will Call you with the time.* Contact information: [address] [facility] [place] [facility] [address] RESULTS: Narrative TECHNIQUE: Renal and bladder B-mode ultrasound with color and duplex doppler CLINICAL INFORMATION: CKD. COMPARISON: 07/22/2006. FINDINGS: RIGHT KIDNEY: Echogenicity: Similar to that of the liver corresponding to mildly echogenic parenchyma. Hydronephrosis: None. Calcification: None. Mass: None. Size: 10.3 cm in long axis. Resistive index: Up to 0.79 LEFT KIDNEY: Echogenicity: Mildly echogenic. Hydronephrosis: None. Calcification: Echogenic focus at the superior pole measuring 3 mm without posterior shadowing. Mass: None. Size: 9.2 cm in long axis. Resistive index: Up to 0.75 URINARY BLADDER: No focal or diffuse wall thickening. Ureteral jets were not visualized. IMPRESSION - No evidence of obstructive uropathy. Mildly echogenic parenchyma bilaterally and abnormal resistive indices, consistent with chronic medical renal disease. Left upper pole renal sinus 3 mm echogenic structure, calcified stone versus focal echogenic fat. Dictated and Signed by: Akash Ashraf MD Electronically signed: 10/05/2017 8:51 PM Results for ESTEFANI CAMPOS ( ) as of 10/06/2017 10:00 Ref. Range 10/06/2017 05:03 NA Latest Ref Range: 136 - 149 mmol/L 141 K Latest Ref Range: 3.5 - 5.1 mmol/L 3.4 (L) Chloride Latest Ref Range: 98 - 109 mmol/L 105 Carbon dioxide Latest Ref Range: 24 - 31 mmol/L 28 ANION GAP Latest Ref Range: 3 - 16 mmol/L 8 GLUCOSE Latest Ref Range: 70 - 109 mg/dL 98 BUN Latest Ref Range: 7 - 18 mg/dL 25 (H) Creatinine Latest Ref Range: 0.60 - 1.30 mg/dL 3.07 (H) BUN/CREA Unknown 8.1 ALBUMIN Latest Ref Range: 3.2 - 5.0 g/dL 2.2 (L) EGFR IF NOT Latest Ref Range: >=60 mL/min/1.73m2 15 (L) Calcium Latest Ref Range: 8.3 - 10.5 mg/dL 8.2 (L) PHOSPHORUS Latest Ref Range: 2.5 - 4.6 mg/dL 4.4 Results for ANDRES ESTEFANI R ( ) as of 10/06/2017 10:00 Ref. Range 10/01/2017 00:00 Protein/Creatinine Ratio, External Latest Ref Range: 0.2 16.9 (A) HOSPITAL COURSE: Please refer to the H&P for full details. In short this 72-year-old female with type II di abetes mellitus, insulin treated, hypertension, stage IV chronic kidney disease, and probabl e nephrotic range proteinuria presented with increasing leg swelling and chest pressure asso ciated with elevated BNP to 780. Systolic pressures were in the 230 range at [facility] and she received IV hydralazine and was transferred here for further care. The patient was treated with IV diuretic therapy in addition to labetalol and made progressive blood pressur e improvement. Her anti-hypertensive regimen was increased such that time discharge she is on labetalol 200 milligrams twice daily, amlodipine 10 mg each morning, and furosemide 80 mg each morning. She was taking losartan 50 mg daily prior to admission and with her creatini ne of 3.11 this was reduced to 25 mg. This should help with her proteinuria and she should have compliance with her other medication may be increased back to the previous 50 mg dose. Has been issues noted of compliance. The patient's to since liver disease from 30 units da natali to 5010 units daily. Time of discharge she'll be increased back to 20 units units with instruction to increase as tolerated to 30 units if her sugars rise. This admission she was seen in consultation by Dr. Muñoz of nephrology and he will follo w her relative to progressive kidney dysfunction because of her likely need for dialysis ove r the next months to few years. Potassium was 3.4 on the day of discharge and she did recei ve a single dose of potassium but with reinstitution of losartan and resumption of outpatien t diet, in lieu of giving further potassium with KANDACE inhibitor, this will be followed up as an outpatient. PHYSICAL EXAM: Temp: 36.7 C (98.1 F), Pulse: 66, Resp: 16, BP: 140/50, SpO2 100 % on room air at flow rate L/min Temp Min: 36.4 C (97.6 F) Max: 36.9 C (98.4 F) Weight: 88.3 kg (194 lb 10.7 oz) Patient seen and examined by me on discharge day Greater than 30 minutes were spent on discharge and coordination of post-hospital care. Electronically signed by: Edison Keys MD, 10/06/2017 10:48 [facility] Portions of this chart may have been created with 1jiajie voice recognition software. Occasi onal wrong-word or sound-alike substitutions may have occurred due to the inherent mckeon itations of voice recognition software. Please read the chart carefully and recognize, using context, where these substitutions have occurred documented in this encounter Discharge Instructions Instructions Gopi Muñoz, - 10/06/20171. Please do a 24 Hour urine, and blood t est one week before your Appt. with Dr. Muñoz at the [facility]. 2. Dr. Stephenson Office, the Vascular Surgeon, will call you with the time for construction of the AV fistula in your right arm. 3. Please avoid any BP or Needlestick's in your Right arm until then. 4. Call Dr. Muñoz's Office, , if any other questions. Thanks. documented in this encounter Medications at Time [...] +---------+ + + | aspirin 325 mg EC | Take 325 mg by mouth | | 0 | | | | tablet | Daily. | | | | 8 | + [...] + + + +---------+ + + | DULoxetine | Take 1 capsule by | 30 | 0 | 10/07/19 | | | (CYMBALTA) [address] | mouth Daily. | capsule | | 18 | 8 | | capsule | | | | | | + + + +---------+ + + | furosemide (LASIX) | Take 1 tablet by | 50 | 0 | 10/07/19 | | | 80 mg tablet | mouth Daily. | tablet | | 18 | 9 | + + + +---------+ + + | gabapentin | Take 100 mg by mouth | | 0 | | | | (NEURONTIN) 100 mg | Daily (at Noon). As | | | | 8 | | capsule | needed | | | | | + + [...] +---------+ + + | insulin glargine | Take 20 units SQ | | 0 | 10/06/19 | | | (LANTUS) 100 | each morning | | | 18 | 8 | | units/mL injection | increasing to home | | | | | | (vial) | regimen(30 units) | | | | | | | for increasing blood | | | | | | | sugar | | | | | + + [...] + + + +---------+ + + | Misc. Throat | Take 1 oz by mouth 2 | | 0 | | | | Products (OASIS | times daily. | | | | 8 | | MOISTURIZING | | | | | | | MOUTHWASH MT) | | | | | | + + + +---------+ + + documented as of this encounter Progress Notes Gopi Muñoz DO - 10/06/2017 9:32 AM PSTNEPHROLOGY No nausea or hiccups. She agrees to come to the [facility] at [place], [place] for follow up on 11/08/17. We sent a Referral to Dr. Stephenson's Office for an outpt appt. for an AVF construction in the very near future. They will call her with the Appt. time per [facility] policy. Will attempt to wait until AVF is mature before starting outpt HD, as long as uremic sympto ms do not intervene. Thanks. [facility] Edison Andrea M D - 10/05/2017 2:20 PM PST [facility]G Hospitalist Progress Note Estefani Campos is a 72 y.o. female ASSESSMENT and PLAN: 1. Severe hypertension with chronic kidney disease Patient is on labetalol 100 mg twice daily, losartan 50 DAILY, and furosemide 40 mg twice d aily. Creatinine is 3.11 with EGFR of 15. Manual blood pressure at time of my assessment w as 170/80 in the right arm. At this point I'm going to start amlodipine 5 mg twice daily an d increase labetalol to 200 mg twice daily. Now going to hold losartan. We will ask urolog y to see this patient and that she should be followed by a accounts collector night discussed this issue with her. I discussed with her her likelihood of progressing to end-stage chronic re nal failure. We'll obtain a renal ultrasound and urinalysis. Likely discharge tomorrow a.m . SUBJECTIVE: Patient denies shortness of breath. Her legs were swollen and much improvement. She den ies chest pain or nausea. VITALS: Temp: 37 C (98.6 F), Pulse: 75, Resp: 17, BP: 178/88, SpO2 98 % on room air at flow rat e L/min Temp Min: 36.8 C (98.2 F) Max: 37 C (98.6 F) Weight: 88.3 kg (194 lb 10.7 oz) Intake/Output Summary (Last 24 hours) at 10/05/17 1420 Last data filed at 10/05/17 1143 Gross per 24 hour Intake 1050 ml Output 1600 ml Net -550 ml PHYSICAL EXAM: Cardiovascular: Regular rate and rhythm Respiratory: Clear bilaterally Abdomen: Soft without tenderness Extremities: Trace pedal edema DIAGNOSTIC STUDIES: Available data and images were reviewed personally. Significant results and findings are a ddressed here or in the Assessment and Plan. Lab Results Component Value Date HGB 10.0 (L) 10/04/2017 HCT 30.9 (L) 10/04/2017 PLT 171 10/04/2017 WBC 5.1 10/04/2017 Lab Results Component Value Date NA 137 10/04/2017 K 3.8 10/04/2017 CL 103 10/04/2017 CO2 28 10/04/2017 CREA 3.11 (H) 10/04/2017 BUN 24 (H) 10/04/2017 MG 1.7 (L) 10/04/2017 Glucose, POC Date/Time Value Ref Range Status 10/05/2017 12:30 266 (H) 70 - 109 mg/dL Final 10/05/2017 06:52 88 70 - 109 mg/dL Final 10/04/2017 20:18 231 (H) 70 - 109 mg/dL Final Glucose, POC Date/Time Value Ref Range Status 10/05/2017 12:30 266 (H) 70 - 109 mg/dL Final 10/05/2017 06:52 88 70 - 109 mg/dL Final 10/04/2017 20:18 231 (H) 70 - 109 mg/dL Final No results found. Total time of approximately 25 minutes was spent with the patient and/or patient's family, and/or on the patient's floor/unit, of which more than 50% was spent counseling and/or coord ination the patient's care as outlined above. Edison Keys 10/05/2017 14:20 [facility] Portions of this chart may have been created with 1jiajie voice recognition software. Occasi onal wrong-word or sound-alike substitutions may have occurred due to the inherent mckeon itations of voice recognition software. Please read the chart carefully and recognize, using context, where these substitutions have occurred Mayelin Sanders MD - 10/04/2017 5:37 PM PST [facility] HOSPITALIST PROGRESS NOTE Patient: Estefani Campos : 1945: Age: 72 y.o. MedRec: [id number] Admission date: 10/01/2017 Hospital day # : 3 Physician author: Mayelin Vega MD Today: 10/04/2017 Allergies: Allergies Allergen Reactions Levofloxacin Lisinopril Pt states she does not remember what was the reaction she had to lisinopril. I asked her if it gave her a cough and she said "I cant remember, maybe it made me sick to my stomach". Naproxen Omeprazole Current Medications: Current Facility-Administered Medications Medication Dose Route Frequency Provider Last Rate Last Dose acetaminophen (TYLENOL) tablet 650 mg 650 mg Oral Q6H PRN Rupal Laguna MD 650 mg a t 10/02/17 0755 aspirin chewable tablet 81 mg 81 mg Oral Daily Rupal Laguna MD 81 mg at 10/04/17 0 822 atorvaSTATin (LIPITOR) tablet 40 mg 40 mg Oral Nightly Rupal Laguna MD 40 mg at 210 bisacodyl (DULCOLAX) suppository 10 mg 10 mg Rectal Daily PRN Rupal Laguna MD dextrose 50% injection 12.5 g 12.5 g Intravenous PRN Rupal Laguna MD docusate sodium (COLACE) capsule 100 mg 100 mg Oral BID Rupal Laguna MD 100 mg at 10/04/17 0821 DULoxetine (CYMBALTA) DR capsule 30 mg 30 mg Oral Daily Rupal Laguna MD 30 mg at 0 10/04/17 0821 furosemide (LASIX) tablet 40 mg 40 mg Oral BID (8 and 16) Mayelin Vega MD 40 mg at 10/04/17 1659 gabapentin (NEURONTIN) capsule 200 mg 200 mg Oral BID Rupal Laguna MD 200 mg at 0821 heparin 5,000 units/mL injection 5,000 Units 5,000 Units Subcutaneous 2 times per day Rupal Laguna MD 5,000 Units at 10/04/17 0823 HYDROcodone-acetaminophen (NORCO) 5-325 mg per tablet 1-2 tablet 1-2 tablet Oral Q4H P RN Rupal Laguna MD 1 tablet at 10/04/17 1658 insulin glargine (LANTUS SOLOSTAR) 100 units/mL injection (pen) 10 Units 10 Units Subc utaneous Nightly Rupal Laguna MD 10 Units at 10/03/17 2100 insulin lispro (humaLOG KWIKPEN) 100 units/mL injection (pen) 0-6 Units 0-6 Units Subc utaneous 4x Daily WC and HS Rupal Laguna MD 2 Units at 10/04/17 1238 labetalol (NORMODYNE) tablet 100 mg 100 mg Oral BID Mayelin Vega MD 100 mg at 10/04/17 1658 labetalol (TRANDATE) 5 mg/mL injection 10-20 mg 10-20 mg Intravenous Q1H PRN Mayelin Vega MD 10 mg at 10/04/17 1000 levothyroxine (SYNTHROID) tablet 75 mcg 75 mcg Oral QAM AC Rupal Laguna MD 75 mcg at 10/04/17 0637 losartan (COZAAR) tablet 50 mg 50 mg Oral BID Mayelin Vega MD 50 mg at 0821 ondansetron (ZOFRAN) injection 4 mg 4 mg Intravenous Q6H PRN Mayelin Vega MD 4 mg at 10/03/17 0505 pantoprazole (PROTONIX) DR tablet 40 mg 40 mg Oral QAM AC Rupal Laguna MD 40 mg at 10/04/17 0637 polyethylene glycol (MIRALAX) powder 17 g 17 g Oral Daily PRN Rupal Laguna MD Current Infusions: Objective Data Point of care glucose Recent Labs Lab 10/04/17 1656 10/04/17 1152 10/04/17 0643 10/03/17 2111 10/03/17 1637 10/03/17 1150 POCGLU 197* 204* 118* 130* 140* 180* Labs last 24 hours Recent Results (from the past 24 hour(s)) POC Glucose Collection Time: 10/03/17 21:11 Result Value Ref Range Glucose, POC 130 (H) 70 - 109 mg/dL CBC with Differential Collection Time: 10/04/17 5:06 Result Value Ref Range WBC 5.1 4.0 - 11.0 K/uL RBC 3.44 (L) 3.70 - 5.20 M/uL Hgb 10.0 (L) 11.5 - 16.0 g/dL Hct 30.9 (L) 34.0 - 47.0 % MCV 89.8 83.0 - 101.0 fL MCH 29.2 28.0 - 35.0 pg MCHC 32.5 32.0 - 36.0 g/dL RDW-CV 14.5 <15.0 % Platelet Count 171 140 - 440 K/uL MPV 8.6 fL % Neutrophils 59.6 45.0 - 82.0 % % Lymphocytes 30.1 20.0 - 45.0 % % Monocytes 6.1 4.0 - 12.0 % % Eosinophils 3.5 0.0 - 5.0 % % Basophils 0.7 0.0 - 1.0 % Absolute Neutrophils 3.00 1.80 - 8.50 K/uL Absolute Lymphocytes 1.50 0.60 - 3.20 K/uL Absolute Monocytes 0.30 0.00 - 1.00 K/uL Absolute Eosinophils 0.20 0.00 - 0.40 K/uL Absolute Basophils 0.00 0.00 - 0.10 K/uL Basic Metabolic Panel Collection Time: 10/04/17 5:06 Result Value Ref Range NA 137 136 - 149 mmol/L K 3.8 3.5 - 5.1 mmol/L CL 103 98 - 109 mmol/L CO2 28 24 - 31 mmol/L ANION GAP 6 3 - 16 mmol/L GLUCOSE 105 70 - 109 mg/dL BUN 24 (H) 7 - 18 mg/dL Creatinine, Serum/Plasma 3.11 (H) 0.60 - 1.30 mg/dL eGFR if not 15 (L) >=60 mL/min/1.73m2 CALCIUM 8.4 8.3 - 10.5 mg/dL BUN/CREA 7.7 Magnesium Collection Time: 10/04/17 5:06 Result Value Ref Range MG 1.7 (L) 1.8 - 2.5 mg/dL POC Glucose Collection Time: 10/04/17 6:43 Result Value Ref Range Glucose, POC 118 (H) 70 - 109 mg/dL POC Glucose Collection Time: 10/04/17 11:52 Result Value Ref Range Glucose, POC 204 (H) 70 - 109 mg/dL POC Glucose Collection Time: 10/04/17 16:56 Result Value Ref Range Glucose, POC 197 (H) 70 - 109 mg/dL Micro results Microbiology Results (72 hrs) Procedure Component Value Units Date/Time Culture, MRSA [[id number]] Collected: 10/02/17 0803 Order Status: Completed Lab Status: Final result Updated: 10/03/17 0811 Specimen: Respiratory from Nares Culture Negative for MRSA by chromogenic agar method Radiology results No results found. Vitals Ranges: Temp: [36.7 C (98.1 F)-37.1 C (98.8 F)] 36.9 C (98.4 F) Pulse: [70-80] 70 Resp: [16-18] 18 BP: (150-210)/(89-110) 180/90 Vitals: Temp: 36.9 C (98.4 F) BP: 180/90 Pulse: 70 Resp: 18 SpO2: 98 % SpO2 98 % on room air at flow rate L/min Subjective CC LE Swelling/HTN Pt seen and examined at bedside. She reports feeling well with no complaints, DOTY resolved. LE swelling improved. Denies any new symptoms. RN at bedside at time of evaluation, reported BP in AM 200/98, rechecked 2 hrs after BP med ications given, found to be 210/110. She was given IV labetalol with mild improvement. ROS See above Exam Constitutional: overweight pleasant woman no acute distress HEENT: No conjunctivitis nor scleral icterus. Clear oropharynx. No adenopathy Cardiac: Normal S1 S2, regular, no murmur appreciated Lung: clear to auscultation all gaytan Abdomen: + BS, Soft, NT, no HSM nor masses Extremities: mild dermatitic changes noted, bl LE swelling Neuro: Nonfocal, strength intact. AAO x 3 Assessment and Plan 1. Hypertensive emergency- initially with DOTY and chest pressure- still with poor control in spite of changes -switch to lasix 40 mg PO twice per day -continue Losartan 50 mg twice per day -added Labetalol 100 mg twice per day -labetalol prn SBP >180 -monitor on tele -echo reviewed with patient -continue on aspirin and statin -troponin negative 2. LE swelling of unclear etiology - improved with diuresis, currently with no SOB, PND/ort hopnea or other clinical signs of CHF- it may be related to renal disease- noted hypoalbumin emia and possible salt in diet -Will continue to diurese with lasix -monitor strict I/o's. -LE dopplers negative DVT -compression stockings -nutrition evaluation 3. CKD - stage 4- previous creatinine has been around 1.8-2.3. -Monitor closely with diuresis- so far remains stable ~3 - ? New baseline 4. DM-type 2-poorly controlled with associated neuropathy and likely nephropathy -started on small dose of lantus 10 units nightly -Continue SSI -poor compliance probably due to former homeless status- will consult social work for any a id that can be provided -continue gabapentin 5. Hypothyroidism- -continue levothyroxine 6. GERD- -continue PPI 7. Chronic back pain- -pain control as needed Dispo- BP significantly elevated, did consider discharge as she was asymptomatic if able to follow up with primary in next day, however, patient was disagreeable to seeing her current primary physician an refused follow up. Goal of improving BP control, emphasized importance of follow up and compliance FEN: DM, cardiac, JUNA, 1L fluid restrict PPx: sub q hep, SCDs Code: FULL Mayelin Vega MD 10/04/2017 17:38 [facility] Portions of this chart may have been created with 1jiajie voice recognition software. Occasi onal wrong-word or sound-alike substitutions may have occurred due to the inherent mckeon itations of voice recognition software. Please read the chart carefully and recognize, using context, where these substitutions have occurred Ta Youngblood RP - 10/04/2017 10:15 AM PST PHARMACY SERVICES: ADMISSION MEDICATION REVIEW Estefani Campos is a 72 y.o. female admitted on 10/01/17. Patient is a reliable historian. Location of Patient when reviewed: ED X Medical Floor Patient s prior to admit medication and over the counter (OTC) medications/herbal supplem ents list obtained from: X Verbal interview X Patient able to recall SOME Name, strength, and directions X Pharmacy list names: [facility] insurance reported information X Care Everywhere X Outside Information Vaccines up to date? Yes No Unsure Influenza X Pneumococcal X Tdap X Shingles X Noted medications discrepancies or medication-related issues: Dosage change: Medication: Prior to Admission Sig: Correct sig: Acetaminophen 325mg 2 tabs by mouth every 4 hours as needed 1-2 tabs by mouth every 4 hours as needed for pain Insulin glargine 100 units/ ml 50 units under the skin nightly 30 units under the skin ever y morning Medication added: Medication: Prior to Admission Sig: Loratadine 10mg 1 tab by mouth daily Aspirin EC 325mg 1 tab by mouth daily Losartan 50mg 1 tab by mouth daily Furosemide 20mg 1 tab by mouth daily Calcium =- vitamin d 600-400 1 tab by mouth twice daily Removed therapy: Medication: Prior to Admission Sig: Reason for Removal: Duloxetine 30mg 1 capsule by mouth daily Therapy complete Fexofenadine 180mg 1 tab by mouth daily Therapy complete Fluticasone 50mcg 1 spray by nasal route daily Therapy complete Tramadol 50mg 1 tab by mouth every 6 hours as needed for pain Therapy complete Recreational Substances , Tobacco & Alcohol use : Drug: Route Frequency: Last Used: Marijuana smoke Daily as needed Medication review performed and electronically signed by Puja Whitman, Slot Floor Person 2017 10:09 Electronically signed by: Ta Ronquillo RPH 10/04/2017 10:14 Diann Sanders MD - 10/03/2017 12:46 PM PST [facility] PROGRESS NOTE Patient: Estefani Campos : 1945: Age: 72 y.o. MedRec: [id number] Admission date: 10/01/2017 Hospital day # : 2 Physician author: Mayelin Vega MD Today: 10/03/2017 Allergies: Allergies Allergen Reactions Levofloxacin Lisinopril Pt states she does not remember what was the reaction she had to lisinopril. I asked her if it gave her a cough and she said "I cant remember, maybe it made me sick to my stomach". Naproxen Omeprazole Current Medications: Current Facility-Administered Medications Medication Dose Route Frequency Provider Last Rate Last Dose acetaminophen (TYLENOL) tablet 650 mg 650 mg Oral Q6H PRN Rupal Laguna MD 650 mg a t 10/02/17 0755 aspirin chewable tablet 81 mg 81 mg Oral Daily Rupal Laguna MD 81 mg at 10/03/17 0 809 atorvaSTATin (LIPITOR) tablet 40 mg 40 mg Oral Nightly Rupal Laguna MD 40 mg at 2212 bisacodyl (DULCOLAX) suppository 10 mg 10 mg Rectal Daily PRN Rupal Laguna MD dextrose 50% injection 12.5 g 12.5 g Intravenous PRN Rupal Laguna MD docusate sodium (COLACE) capsule 100 mg 100 mg Oral BID Rupal Laguna MD 100 mg at 10/03/17 0808 DULoxetine (CYMBALTA) DR capsule 30 mg 30 mg Oral Daily Rupal Laguna MD 30 mg at 0 10/03/17 0808 furosemide (LASIX) tablet 40 mg 40 mg Oral BID (8 and 16) Mayelin Vega MD gabapentin (NEURONTIN) capsule 200 mg 200 mg Oral BID Rupal Laguna MD 200 mg at 0808 heparin 5,000 units/mL injection 5,000 Units 5,000 Units Subcutaneous 2 times per day Rupal Laguna MD 5,000 Units at 10/03/17 0809 HYDROcodone-acetaminophen (NORCO) 5-325 mg per tablet 1-2 tablet 1-2 tablet Oral Q4H P RN Rupal Laguna MD 2 tablet at 10/02/17 0937 insulin glargine (LANTUS SOLOSTAR) 100 units/mL injection (pen) 10 Units 10 Units Subc utaneous Nightly Rupal Laguna MD 10 Units at 10/02/17 2216 insulin lispro (humaLOG KWIKPEN) 100 units/mL injection (pen) 0-6 Units 0-6 Units Subc utaneous 4x Daily WC and HS Rupal Laguna MD 1 Units at 10/03/17 1238 labetalol (TRANDATE) 5 mg/mL injection 10-20 mg 10-20 mg Intravenous Q1H PRN Mayelin Vega MD levothyroxine (SYNTHROID) tablet 75 mcg 75 mcg Oral QAM AC Rupal Laguna MD 75 mcg at 10/03/17 0633 losartan (COZAAR) tablet 50 mg 50 mg Oral BID Mayelin Vega MD 50 mg at 0100 ondansetron (ZOFRAN) injection 4 mg 4 mg Intravenous Q6H PRN Mayelin Vega MD 4 mg at 10/03/17 0505 pantoprazole (PROTONIX) DR tablet 40 mg 40 mg Oral QAM AC Rupal Laguna MD 40 mg at 10/03/17 0633 polyethylene glycol (MIRALAX) powder 17 g 17 g Oral Daily PRN Rupal Laguna MD Current Infusions: Objective Data Point of care glucose Recent Labs Lab 10/03/17 1150 10/03/17 0631 10/02/17 2213 10/02/17 1152 10/02/17 0739 10/01/17 2212 POCGLU 180* 110* 163* 142* 111* 194* Labs last 24 hours Recent Results (from the past 24 hour(s)) Basic Metabolic Panel Collection Time: 10/02/17 16:37 Result Value Ref Range NA 139 136 - 149 mmol/L K 4.7 3.5 - 5.1 mmol/L CL 109 98 - 109 mmol/L CO2 24 24 - 31 mmol/L ANION GAP 6 3 - 16 mmol/L GLUCOSE 140 (H) 70 - 109 mg/dL BUN 26 (H) 7 - 18 mg/dL Creatinine, Serum/Plasma 3.13 (H) 0.60 - 1.30 mg/dL eGFR if not 15 (L) >=60 mL/min/1.73m2 CALCIUM 8.8 8.3 - 10.5 mg/dL BUN/CREA 8.3 POC Glucose Collection Time: 10/02/17 22:13 Result Value Ref Range Glucose, POC 163 (H) 70 - 109 mg/dL CBC with Differential Collection Time: 10/03/17 6:29 Result Value Ref Range WBC 5.4 4.0 - 11.0 K/uL RBC 3.38 (L) 3.70 - 5.20 M/uL Hgb 10.2 (L) 11.5 - 16.0 g/dL Hct 29.9 (L) 34.0 - 47.0 % MCV 88.5 83.0 - 101.0 fL MCH 30.2 28.0 - 35.0 pg MCHC 34.1 32.0 - 36.0 g/dL RDW-CV 14.3 <15.0 % Platelet Count 192 140 - 440 K/uL MPV 8.7 fL % Neutrophils 64.1 45.0 - 82.0 % % Lymphocytes 28.7 20.0 - 45.0 % % Monocytes 4.6 4.0 - 12.0 % % Eosinophils 1.9 0.0 - 5.0 % % Basophils 0.7 0.0 - 1.0 % Absolute Neutrophils 3.50 1.80 - 8.50 K/uL Absolute Lymphocytes 1.60 0.60 - 3.20 K/uL Absolute Monocytes 0.20 0.00 - 1.00 K/uL Absolute Eosinophils 0.10 0.00 - 0.40 K/uL Absolute Basophils 0.00 0.00 - 0.10 K/uL Basic Metabolic Panel Collection Time: 10/03/17 6:29 Result Value Ref Range NA 138 136 - 149 mmol/L K 4.1 3.5 - 5.1 mmol/L CL 105 98 - 109 mmol/L CO2 25 24 - 31 mmol/L ANION GAP 8 3 - 16 mmol/L GLUCOSE 105 70 - 109 mg/dL BUN 25 (H) 7 - 18 mg/dL Creatinine, Serum/Plasma 3.06 (H) 0.60 - 1.30 mg/dL eGFR if not 15 (L) >=60 mL/min/1.73m2 CALCIUM 8.7 8.3 - 10.5 mg/dL BUN/CREA 8.2 Magnesium Collection Time: 10/03/17 6:29 Result Value Ref Range MG 1.8 1.8 - 2.5 mg/dL POC Glucose Collection Time: 10/03/17 6:31 Result Value Ref Range Glucose, POC 110 (H) 70 - 109 mg/dL POC Glucose Collection Time: 10/03/17 11:50 Result Value Ref Range Glucose, POC 180 (H) 70 - 109 mg/dL Micro results Microbiology Results (72 hrs) Procedure Component Value Units Date/Time Culture, MRSA [[id number]] Collected: 10/02/17 0803 Order Status: Completed Lab Status: Final result Updated: 10/03/17 0811 Specimen: Respiratory from Nares Culture Negative for MRSA by chromogenic agar method Radiology results Xr Chest Ap Portable Result Date: 10/02/2017 XR CHEST AP PORTABLE 10/01/2017 9:15 PM HISTORY: hypoxia. COMPARISON: CT scans 12/06/2007, . Findings: Heart size is within normal limits. There is atherosclerosis of the aorta . Mediastinum is unremarkable. Central pulmonary vasculature is normal. Mild patchy airspace disease is in the left lung apex. The right lung is clear. Mild to moderate spondylosis is visualized. IMPRESSION - Mild patchy airspace disease in left lung apex, possibly atelectasi s versus pneumonia. Dictated and Signed by: Salvatore Nunez MD Electronically signed: 8 1:51 PM Vas Lower Extremity Venous Bilateral Result Date: 10/02/2017 VAS LOWER EXTREMITY VENOUS BILATERAL 10/02/2017 9:30 AM HISTORY: Evaluate for DVT, new onset of bilateral leg swelling. COMPARISON: None. PROTOCOL: Choi scale and Doppler images of the lower extremity veins. FINDINGS: The bilateral common femoral, greater saphenous, profunda femoral, superficial femoral, and popliteal veins demonstrate normal flow, augmentation, and compression. IMPRESSION - No evidence for DVT. Dictated and Signed by: Salvatore Nunez MD Nelda ctronically signed: 10/02/2017 11:28 AM Vitals Ranges: Temp: [36.4 C (97.5 F)-36.8 C (98.2 F)] 36.4 C (97.5 F) Pulse: [68-76] 72 Resp: [16] 16 BP: (156-210)/(74-90) 172/90 Vitals: Temp: 36.4 C (97.5 F) BP: 172/90 Pulse: 72 Resp: 16 SpO2: 99 % SpO2 99 % on room air at flow rate L/min Subjective CC LE Swelling/HTN Pt seen and examined at bedside. She reports feeling better overall, DOTY resolved. LE swelli ng improved. Denies any new symptoms. She has concerns about her renal function an multiple medical conditions and what can be done to prevent further damage. ROS See above Exam Constitutional: overweight pleasant woman no acute istress HEENT: No conjunctivitis nor scleral icterus. Clear oropharynx. No adenopathy Cardiac: Normal S1 S2, regular, no murmur appreciated Lung: clear to auscultation all gaytan Abdomen: + BS, Soft, NT, no HSM nor masses Extremities: mild dermatitic changes noted, bl LE swelling Neuro: Nonfocal, strength intact. AAO x 3 Assessment and Plan 1. Hypertensive emergency- initially with DOTY and chest pressure- will work on improving con trol -switch to lasix 40 mg PO twice per day -add Losartan 50 mg twice per day -labetalol prn SBP >180 -monitor on tele -echo reviewed with patient -continue on aspirin and statin -troponin negative 2. LE swelling of unclear etiology - improved with diuresis, currently with no SOB, PND/ort hopnea or other clinical signs of CHF- it may be related to renal disease- noted hypoalbumin emia and possible salt in diet -Will continue to diurese with lasix -monitor strict I/o's. -LE dopplers negative DVT -compression stockings -nutrition evaluation 3. CKD - stage 4- previous creatinine has been around 1.8-2.3. -Monitor closely with diuresis- so far remains stable ~3 - ? New baseline 4. DM-type 2-poorly controlled with associated neuropathy and likely nephropathy -started on small dose of lantus 10 units nightly -Continue SSI -poor compliance probably due to former homeless status- will consult social work for any a id that can be provided -continue gabapentin 5. Hypothyroidism- -continue levothyroxine 6. GERD- -continue PPI 7. Chronic back pain- -pain control as needed Dispo- if remains clinically stable will DC home tomorrow. Medical conditions reviewed in d etail, emphasized importance of compliance with medications and medical follow up. FEN: DM, cardiac, JUAN, 1L fluid restrict PPx: sub q hep, SCDs Code: FULL Mayelin Vega MD 10/03/2017 12:46 [facility] Portions of this chart may have been created with 1jiajie voice recognition software. Occasi onal wrong-word or sound-alike substitutions may have occurred due to the inherent mckeon itations of voice recognition software. Please read the chart carefully and recognize, using context, where these substitutions have occurred ayelin Engle MD - 10/02/2017 9:13 AM PSTFormatting of this note might be different from the or iginal. [facility] PROGRESS NOTE Patient: Estefani Campos : 1945: Age: 72 y.o. MedRec: [id number] Admission date: 10/01/2017 Hospital day # : 1 Physician author: Mayelin Vega MD Today: 10/02/2017 Allergies: Allergies Allergen Reactions Levofloxacin Lisinopril Naproxen Omeprazole Current Medications: Current Facility-Administered Medications Medication Dose Route Frequency Provider Last Rate Last Dose acetaminophen (TYLENOL) tablet 650 mg 650 mg Oral Q6H PRN Rupal Laguna MD 650 mg a t 10/02/17 075 aspirin chewable tablet 81 mg 81 mg Oral Daily Rupal Laguna MD 81 mg at 10/01/17 2 157 atorvaSTATin (LIPITOR) tablet 40 mg 40 mg Oral Nightly Rupal Laguna MD 40 mg at 2156 bisacodyl (DULCOLAX) suppository 10 mg 10 mg Rectal Daily PRN Rupal Laguna MD dextrose 50% injection 12.5 g 12.5 g Intravenous PRN Rupal Laguna MD docusate sodium (COLACE) capsule 100 mg 100 mg Oral BID Rupal Laguna MD 100 mg at 10/01/172156 DULoxetine (CYMBALTA) DR capsule 30 mg 30 mg Oral Daily Rupal Laguna MD furosemide (LASIX) injection 40 mg 40 mg Intravenous BID (8 and 16) Rupal Laguna MD 40 mg at 10/02/17 075 gabapentin (NEURONTIN) capsule 200 mg 200 mg Oral BID Rupal Laguna MD 200 mg at 2156 heparin 5,000 units/mL injection 5,000 Units 5,000 Units Subcutaneous 2 times per day uRpal Laguna MD 5,000 Units at 10/01/172157 HYDROcodone-acetaminophen (NORCO) 5-325 mg per tablet 1-2 tablet 1-2 tablet Oral Q4H P RN Rupal Laguna MD 1 tablet at 10/01/172156 insulin glargine (LANTUS SOLOSTAR) 100 units/mL injection (pen) 10 Units 10 Units Subc utaneous Nightly Rupal Laguna MD 10 Units at 10/01/172211 insulin lispro (humaLOG KWIKPEN) 100 units/mL injection (pen) 0-6 Units 0-6 Units Subc utaneous 4x Daily WC and HS Rupal Laguna MD levothyroxine (SYNTHROID) tablet 75 mcg 75 mcg Oral QAM AC Rupal Laguna MD 75 mcg at 10/02/17 0740 morphine injection 2-4 mg 2-4 mg Intravenous Q4H PRN Rupal Laguna MD nitroglycerin in dextrose 100 mcg/mL infusion 5-250 mcg/min Intravenous Titrated Abbie Laguna MD Stopped at 10/01/172254 pantoprazole (PROTONIX) DR tablet 40 mg 40 mg Oral QAM AC Rupal Laguna MD 40 mg at 10/02/17 0740 polyethylene glycol (MIRALAX) powder 17 g 17 g Oral Daily PRN Rupal Laguna MD Current Infusions: nitroglycerin in dextrose Stopped (10/01/172254) Objective Data Point of care glucose Recent Labs Lab 10/02/17 0739 10/01/172211 POCGLU 111* 194* Labs last 24 hours Recent Results (from the past 24 hour(s)) CBC with Differential Collection Time: 10/01/17 21:12 Result Value Ref Range WBC 9.6 4.0 - 11.0 K/uL RBC 3.16 (L) 3.70 - 5.20 M/uL Hgb 9.4 (L) 11.5 - 16.0 g/dL Hct 28.3 (L) 34.0 - 47.0 % MCV 89.3 83.0 - 101.0 fL MCH 29.7 28.0 - 35.0 pg MCHC 33.2 32.0 - 36.0 g/dL RDW-CV 14.4 <15.0 % Platelet Count 180 140 - 440 K/uL MPV 8.3 fL % Neutrophils 83.1 (H) 45.0 - 82.0 % % Lymphocytes 12.1 (L) 20.0 - 45.0 % % Monocytes 3.3 (L) 4.0 - 12.0 % % Eosinophils 0.9 0.0 - 5.0 % % Basophils 0.6 0.0 - 1.0 % Absolute Neutrophils 7.90 1.80 - 8.50 K/uL Absolute Lymphocytes 1.20 0.60 - 3.20 K/uL Absolute Monocytes 0.30 0.00 - 1.00 K/uL Absolute Eosinophils 0.10 0.00 - 0.40 K/uL Absolute Basophils 0.10 0.00 - 0.10 K/uL Comprehensive Metabolic Panel Collection Time: 10/01/17 21:12 Result Value Ref Range NA 140 136 - 149 mmol/L K 4.7 3.5 - 5.1 mmol/L CL 111 (H) 98 - 109 mmol/L CO2 24 24 - 31 mmol/L ANION GAP 5 3 - 16 mmol/L GLUCOSE 191 (H) 70 - 109 mg/dL BUN 25 (H) 7 - 18 mg/dL Creatinine, Serum/Plasma 3.05 (H) 0.60 - 1.30 mg/dL eGFR if not 15 (L) >=60 mL/min/1.73m2 CALCIUM 8.5 8.3 - 10.5 mg/dL ALBUMIN 2.6 (L) 3.2 - 5.0 g/dL BILIRUBIN TOTAL 0.8 0.1 - 1.5 mg/dL Total protein 5.7 (L) 6.0 - 7.8 g/dL AST 14 10 - 42 U/L ALT 10 6 - 45 U/L ALK PHOS 59 40 - 110 U/L GLOBULIN 3.1 2.1 - 3.8 g/dL Albumin/Globulin ratio 0.8 0.8 - 2.0 BUN/CREA 8.2 Magnesium Collection Time: 10/01/17 21:12 Result Value Ref Range MG 1.8 1.8 - 2.5 mg/dL Protime INR Collection Time: 10/01/17 21:12 Result Value Ref Range Protime 13.3 11.3 - 13.9 seconds INR 1.02 0.90 - 1.10 Troponin I Collection Time: 10/01/17 21:12 Result Value Ref Range Troponin I 0.01 <0.06 ng/mL POC Glucose Collection Time: 10/01/17 22:12 Result Value Ref Range Glucose, POC 194 (H) 70 - 109 mg/dL ECG 12 lead Collection Time: 10/01/17 22:26 Result Value Ref Range VENTRICULAR RATE EKG 74 BPM ATRIAL RATE 74 BPM P-R INTERVAL 136 ms QRS DURATION 132 ms Q-T INTERVAL 438 ms Q-T INTERVAL (CORRECTED) 486 ms P WAVE AXIS 73 degrees QRS AXIS 92 degrees T AXIS 71 degrees INTERPRETATION TEXT Sinus rhythm with premature atrial complexes Right bundle branch block Prolonged QTc Abnormal ECG No previous ECGs available Confirmed by KEN ELLISON MD ([id number]) on 10/02/2017 7:49:20 AM Lipid Panel Collection Time: 10/02/17 2:41 Result Value Ref Range Triglycerides 119 35 - 160 mg/dL Cholesterol 198 150 - 200 mg/dL HDL 28 28 - 83 mg/dL Chol/HDL Ratio 7.1 LDL, Calculated 146 (H) <=130 mg/dL CBC with Differential Collection Time: 10/02/17 2:41 Result Value Ref Range WBC 6.6 4.0 - 11.0 K/uL RBC 2.94 (L) 3.70 - 5.20 M/uL Hgb 8.6 (L) 11.5 - 16.0 g/dL Hct 26.5 (L) 34.0 - 47.0 % MCV 90.0 83.0 - 101.0 fL MCH 29.2 28.0 - 35.0 pg MCHC 32.4 32.0 - 36.0 g/dL RDW-CV 14.4 <15.0 % Platelet Count 170 140 - 440 K/uL MPV 8.5 fL % Neutrophils 75.7 45.0 - 82.0 % % Lymphocytes 18.8 (L) 20.0 - 45.0 % % Monocytes 3.5 (L) 4.0 - 12.0 % % Eosinophils 1.1 0.0 - 5.0 % % Basophils 0.9 0.0 - 1.0 % Absolute Neutrophils 5.00 1.80 - 8.50 K/uL Absolute Lymphocytes 1.20 0.60 - 3.20 K/uL Absolute Monocytes 0.20 0.00 - 1.00 K/uL Absolute Eosinophils 0.10 0.00 - 0.40 K/uL Absolute Basophils 0.10 0.00 - 0.10 K/uL Basic Metabolic Panel Collection Time: 10/02/17 2:41 Result Value Ref Range NA 139 136 - 149 mmol/L K 4.7 3.5 - 5.1 mmol/L CL 112 (H) 98 - 109 mmol/L CO2 25 24 - 31 mmol/L ANION GAP 2 (L) 3 - 16 mmol/L GLUCOSE 158 (H) 70 - 109 mg/dL BUN 27 (H) 7 - 18 mg/dL Creatinine, Serum/Plasma 3.03 (H) 0.60 - 1.30 mg/dL eGFR if not 15 (L) >=60 mL/min/1.73m2 CALCIUM 8.3 8.3 - 10.5 mg/dL BUN/CREA 8.9 Magnesium Collection Time: 10/02/17 2:41 Result Value Ref Range MG 1.8 1.8 - 2.5 mg/dL Troponin I Collection Time: 10/02/17 2:41 Result Value Ref Range Troponin I 0.01 <0.06 ng/mL POC Glucose Collection Time: 10/02/17 7:39 Result Value Ref Range Glucose, POC 111 (H) 70 - 109 mg/dL Micro results Microbiology Results (72 hrs) Procedure Component Value Units Date/Time Culture, MRSA [[id number]] Collected: 10/02/17802 Order Status: Sent Lab Status: In process Updated: 10/02/17808 Specimen: Respiratory from Nares Radiology results No results found. Vitals Ranges: Temp: [36.3 C (97.3 F)-36.6 C (97.9 F)] 36.4 C (97.5 F) Pulse: [65-85] 78 Resp: [8-22] 14 BP: (139-180)/(59-82) 177/70 Vitals: Temp: 36.4 C (97.5 F) BP: 177/70 Pulse: 78 Resp: 14 SpO2: 99 % SpO2 99 % on room air at flow rate L/min Subjective CC LE Swelling/HTN Pt seen and examined at bedside. She reports that she presented to hospital for evaluation of LE swelling that did not improve after initiation of lasix. She reported legs were hard a nd swollen, which caused her pain. When she presented to urgent care, her blood pressure was significantly elevated, she was referred to ER and subsequently transferred here. She repor ts no respiratory complaints; swelling today is improved. No Cp, palpitations, lightheadedne ss. She does report having a headache. No double vision. No F/C/S. No abdominal or urinary c omplaints. She reports a h/o renal dysfunction that has been assumed to be due to DM and she is in the process of establishing with [facility]. Additionally, she reports being homeless up until 2 weeks ago, currently living with her april zayas (recently lost older daughter). ROS See above Exam Constitutional: overweight pleasant woman no acute respiratory distress, not using accessor y muscles, speaking full sentences HEENT: No conjunctivitis nor scleral icterus. Clear oropharynx. No adenopathy Cardiac: Normal S1 S2, regular, no murmur appreciated Lung: clear to auscultation all gaytan Abdomen: + BS, Soft, NT, no HSM nor masses Psych: tearful at times. AAO x 3 Extremities: mild dermatitic changes noted, bl LE swelling (per pt improved) Neuro: Nonfocal, strength intact Assessment and Plan 1. Hypertensive emergency- initially with DOTY and chest pressure- will work on improving con trol -continue lasix 40 mg IV twice per day -labetalol prn SBP >180 -add ARB tomorrow if creatinine remains stable -monitor on tele -obtain echo -continue on aspirin and statin -troponin negative 2. LE swelling of unclear etiology - improved with diuresis, currently with no SOB, PND/ort hopnea or other clinical signs of CHF- it may be related to renal disease- noted hypoalbumin emia and possible salt in diet -Will continue to diurese with lasix -monitor strict I/o's. -LE dopplers to r/o DVT -if US LE negative, compression stockings will be added -nutrition evaluation 3. CKD - stage 4- previous creatinine has been around 1.8-2.3. -Monitor closely with diuresis- so far remains stable ~3 - ? New baseline 4. DM-type 2-poorly controlled with associated neuropathy and likely nephropathy -started on small dose of lantus 10 units nightly -Continue SSI -poor compliance probably due to former homeless status- will consult social work for any a id that can be provided -continue gabapentin. 5. Hypothyroidism- -continue levothyroxine 6. GERD- -continue PPI 7. Chronic back pain- -pain control as needed. FEN: DM, cardiac, JUAN, 1L fluid restrict PPx: sub q hep, SCDs Code: FULL Dispo: transfer med surg with tele Mayelin Vega MD 10/02/2017 9:13 [facility] Portions of this chart may have been created with 1jiajie voice recognition software. Occasi onal wrong-word or sound-alike substitutions may have occurred due to the inherent mckeon itations of voice recognition software. Please read the chart carefully and recognize, using context, where these substitutions have occurred documented in this encounter Plan of Treatment Not on filedocumented as of this encounter Procedures + +--------+ + + + | Procedure Name | Priori | Date/Time | Associated Diagnosis | Comments | | | ty | | | | + +--------+ + + + | ECG - EXTERNAL SCAN | | 10/08/2017 | | Results for this | | | | 12:00 AM | | procedure are in the | | | | PST | | results section. | + +--------+ + + + | POC GLUCOSE | Routin | 10/06/2017 | | Results for this | | | e | 6:41 AM | | procedure are in the | | | | PST | | results section. | + +--------+ + + + | EXTRA LAVENDER TOP | Routin | 10/06/2017 | | Results for this | | TUBE | e | 5:03 AM | | procedure are in the | | | | PST | | results section. | + +--------+ + + + | RENAL FUNCTION PANEL | Routin | 10/06/2017 | | Results for this | | | e | 5:03 AM | | procedure are in the | | | | PST | | results section. | + +--------+ + + + | POC GLUCOSE | Routin | 10/05/2017 | | Results for this | | | e | 8:36 PM | | procedure are in the | | | | PST | | results section. | + +--------+ + + + | POC GLUCOSE | Routin | 10/05/2017 | | Results for this | | | e | 5:27 PM | | procedure are in the | | | | PST | | results section. | + +--------+ + + + | US RENAL COMPLETE | Routin | 10/05/2017 | | Results for this | | | e | 3:18 PM | | procedure are in the | | | | PST | | results section. | + +--------+ + + + | POC GLUCOSE | Routin | 10/05/2017 | | Results for this | | | e | 12:30 PM | | procedure are in the | | | | PST | | results section. | + +--------+ + + + | POC GLUCOSE | Routin | 10/05/2017 | | Results for this | | | e | 6:52 AM | | procedure are in the | | | | PST | | results section. | + +--------+ + + + | POC GLUCOSE | Routin | 10/04/2017 | | Results for this | | | e | 8:18 PM | | procedure are in the | | | | PST | | results section. | + +--------+ + + + | POC GLUCOSE | Routin | 10/04/2017 | | Results for this | | | e | 4:56 PM | | procedure are in the | | | | PST | | results section. | + +--------+ + + + | POC GLUCOSE | Routin | 10/04/2017 | | Results for this | | | e | 11:52 AM | | procedure are in the | | | | PST | | results section. | + +--------+ + + + | POC GLUCOSE | Routin | 10/04/2017 | | Results for this | | | e | 6:43 AM | | procedure are in the | | | | PST | | results section. | + +--------+ + + + | IRON AND TRANSFERRIN | Add-On | 10/04/2017 | | Results for this | | | | 5:06 AM | | procedure are in the | | | | PST | | results section. | + +--------+ + + + | CBC WITH | Routin | 10/04/2017 | | Results for this | | DIFFERENTIAL | e | 5:06 AM | | procedure are in the | | | | PST | | results section. | + +--------+ + + + | MAGNESIUM | Routin | 10/04/2017 | | Results for this | | | e | 5:06 AM | | procedure are in the | | | | PST | | results section. | + +--------+ + + + | FERRITIN | Add-On | 10/04/2017 | | Results for this | | | | 5:06 AM | | procedure are in the | | | | PST | | results section. | + +--------+ + + + | BASIC METABOLIC | Routin | 10/04/2017 | | Results for this | | PANEL | e | 5:06 AM | | procedure are in the | | | | PST | | results section. | + +--------+ + + + | POC GLUCOSE | Routin | 10/03/2017 | | Results for this | | | e | 9:11 PM | | procedure are in the | | | | PST | | results section. | + +--------+ + + + | POC GLUCOSE | Routin | 10/03/2017 | | Results for this | | | e | 4:37 PM | | procedure are in the | | | | PST | | results section. | + +--------+ + + + | POC GLUCOSE | Routin | 10/03/2017 | | Results for this | | | e | 11:50 AM | | procedure are in the | | | | PST | | results section. | + +--------+ + + + | POC GLUCOSE | Routin | 10/03/2017 | | Results for this | | | e | 6:31 AM | | procedure are in the | | | | PST | | results section. | + +--------+ + + + | CBC WITH | Routin | 10/03/2017 | | Results for this | | DIFFERENTIAL | e | 6:29 AM | | procedure are in the | | | | PST | | results section. | + +--------+ + + + | MAGNESIUM | Routin | 10/03/2017 | | Results for this | | | e | 6:29 AM | | procedure are in the | | | | PST | | results section. | + +--------+ + + + | BASIC METABOLIC | Routin | 10/03/2017 | | Results for this | | PANEL | e | 6:29 AM | | procedure are in the | | | | PST | | results section. | + +--------+ + + + | POC GLUCOSE | Routin | 10/02/2017 | | Results for this | | | e | 10:13 PM | | procedure are in the | | | | PST | | results section. | + +--------+ + + + | BASIC METABOLIC | Routin | 10/02/2017 | | Results for this | | PANEL | e | 4:37 PM | | procedure are in the | | | | PST | | results section. | + +--------+ + + + | POC GLUCOSE | Routin | 10/02/2017 | | Results for this | | | e | 11:52 AM | | procedure are in the | | | | PST | | results section. | + +--------+ + + + | VAS LOWER EXTREMITY | Routin | 10/02/2017 | | Results for this | | VENOUS BILATERAL | e | 10:07 AM | | procedure are in the | | | | PST | | results section. | + +--------+ + + + | ECHO COMPLETE | Routin | 10/02/2017 | | Results for this | | | e | 9:09 AM | | procedure are in the | | | | PST | | results section. | + +--------+ + + + | CULTURE, MRSA | Routin | 10/02/2017 | | Results for this | | | e | 8:03 AM | | procedure are in the | | | | PST | | results section. | + +--------+ + + + | POC GLUCOSE | Routin | 10/02/2017 | | Results for this | | | e | 7:39 AM | | procedure are in the | | | | PST | | results section. | + +--------+ + + + | LIPID PANEL | Routin | 10/02/2017 | | Results for this | | | e | 2:41 AM | | procedure are in the | | | | PST | | results section. | + +--------+ + + + | TROPONIN I | Routin | 10/02/2017 | | Results for this | | | e | 2:41 AM | | procedure are in the | | | | PST | | results section. | + +--------+ + + + | CBC WITH | Routin | 10/02/2017 | | Results for this | | DIFFERENTIAL | e | 2:41 AM | | procedure are in the | | | | PST | | results section. | + +--------+ + + + | MAGNESIUM | Routin | 10/02/2017 | | Results for this | | | e | 2:41 AM | | procedure are in the | | | | PST | | results section. | + +--------+ + + + | HEMOGLOBIN A1C | Routin | 10/02/2017 | | Results for this | | | e | 2:41 AM | | procedure are in the | | | | PST | | results section. | + +--------+ + + + | BASIC METABOLIC | Routin | 10/02/2017 | | Results for this | | PANEL | e | 2:41 AM | | procedure are in the | | | | PST | | results section. | + +--------+ + + + | ECG 12 LEAD | [facility] | 10/01/2017 | | Results for this | | | | 10:26 PM | | procedure are in the | | | | PST | | results section. | + +--------+ + + + | POC GLUCOSE | Routin | 10/01/2017 | | Results for this | | | e | 10:12 PM | | procedure are in the | | | | PST | | results section. | + +--------+ + + + | XR CHEST AP PORTABLE | STAT | 10/01/2017 | | Results for this | | | | 9:17 PM | | procedure are in the | | | | PST | | results section. | + +--------+ + + + | TROPONIN I | Routin | 10/01/2017 | | Results for this | | | e | 9:12 PM | | procedure are in the | | | | PST | | results section. | + +--------+ + + + | PROTIME INR | [facility] | 10/01/2017 | | Results for this | | | | 9:12 PM | | procedure are in the | | | | PST | | results section. | + +--------+ + + + | CBC WITH | [facility] | 10/01/2017 | | Results for this | | DIFFERENTIAL | | 9:12 PM | | procedure are in the | | | | PST | | results section. | + +--------+ + + + | MAGNESIUM | [facility] | 10/01/2017 | | Results for this | | | | 9:12 PM | | procedure are in the | | | | PST | | results section. | + +--------+ + + + | COMPREHENSIVE | [facility] | 10/01/2017 | | Results for this | | METABOLIC PANEL | | 9:12 PM | | procedure are in the | | | | PST | | results section. | + +--------+ + + + | LABS - EXTERNAL SCAN | | 10/01/2017 | | Results for this | | | | 12:00 AM | | procedure are in the | | | | PST | | results section. | + +--------+ + + + documented in this encounter Results ECG - EXTERNAL SCAN (10/08/2017 12:00 AM PST) + + + | Narrative | Performed At | + + + | Ordered by an | | | unspecified provider. | | + + + POC Glucose (10/06/2017 6:41 AM PST) + +-------+ + + + | Component | Value | Ref Range | Performed | Pathologist | | | | | At | Signature | + +-------+ + + + | Glucose, | 93 | 70 - 109 mg/dL | [facility] + | [facility] | [address] | [place] | [phone] | | [facility] | | [address] | | | - LABORATORY | | | | + + + + + Extra Lavender Top Tube (10/06/2017 5:03 AM PST) + +-------+ + + + | Component | Value | Ref Range | Performed | Pathologist | | | | | At | Signature | + +-------+ + + + | Extra | Done | | [facility] | | | Lavender | | | [facility] | | | Top Tube | | | MEDICAL | | | [address] | [place] | [phone] | | [facility] | | [address] | | | - LABORATORY | | | | + + + + + Renal Function Panel (10/06/2017 5:03 AM PST) + + + + + + | Component | Value | Ref Range | Performed | Pathologist | | | | | At | Signature | + + + + + + | Na | 141 | 136 - 149 | [facility] | | | | | mmol/L | [facility] | [facility] | [facility] | | | | | | CENTER - | | | | | | LABORATORY | | + + + + + + | K | 3.4 (L) | 3.5 - 5.1 | [facility] | | | | | mmol/L | [facility] | | | | | | [facility] | | | | | | CENTER - | | | | | | LABORATORY | | + + + + + + | Cl | 105 | 98 - 109 mmol/L | [facility] | | | | | | [facility] | | | | | | [facility] | | | | | | CENTER - | | | | | | LABORATORY | | + + + + + + | CO2 | 28 | 24 - 31 mmol/L | [facility] [...] + + + + | Glucose | 98 | 70 - 109 mg/dL | [facility] | | | [facility] | | | [facility] | [facility] | | | | | | C[facility] - | | | | | | LABORATORY | | + + + + + + | BUN | 25 (H) | 7 - 18 mg/dL | [facility] | | | | | [facility] | | | | | | [facility] | | | | | | CENTER - | | | | | | LABORATORY | | + + + + + + | Creatinine | 3.07 (H) | 0.60 - 1.30 | [facility] | | | | | mg/dL | [facility] | | | | | | MED[facility] | | | | | | CENTER - | | | | | | LABORATORY | | + + + + + + | eGFR if not | 15 (L) | >=60 | [facility] | | | | | mL/min/1.73m2 | [facility] | | | [facility] | | | MEDICAL | | | | | | CENTER - | | | | | | LABORATORY | | + + + + + + | Calcium | 8.2 (L) | 8.3 - 10.5 | [facility] | | | | | mg/dL | [facility] | | | | | | MED[facility] | | | | | | CENTER - | | | | | | LABORATORY | | + + + + + + | Albumin | 2.2 (L) | 3.2 - 5.0 g/dL | [facility] | | | | | | [facility] | | | | | | MEDICAL | | | | | | CENTER - | | | | | | LABORATORY | | + + + + + + | Phosphorus | 4.4 | 2.5 - 4.6 mg/dL | [facility] | | | | | | [facility] | | | | | | MEDICAL | | | | | | CENTER - | | | | | | LABORATORY | | + + + + + + | BUN/Creatin | 8.1 | | [facility] | | | ine [...] [address] | [place] | [phone] | | [facility] | | [address] | | | - LABORATORY | | | | + + + + + POC Glucose (10/05/2017 8:36 PM PST) + +---------+ + + + | Component | Value | Ref Range | Performed | Pathologist | | | | | At | Signature | + +---------+ + + + | Glucose, | 149 (H) | 70 - 109 mg/dL | [facility] | | | POC | | | [facility] | | [...] + | [facility] | [address] | [place] | [phone] | | [facility] | | [address] | | | - LABORATORY | | | | + + + + + POC Glucose (10/05/2017 5:27 PM PST) + +---------+ + + + | Component | Value | Ref Range | Performed | Pathologist | | | | | At | Signature | + +---------+ + + + | Glucose, | 137 (H) | 70 - 109 mg/dL | [facility] | | | POC | | | [facility] | | | | | [...] ST. | [address] | [place] | [phone] | | [facility] | | [address] | | | - LABORATORY | | | | + + + + + US Renal Complete (10/05/2017 3:18 PM PST) + + | Specimen | + + | | + + + + + | Narrative | Performed At | + + + | TECHNIQUE: Renal and bladder B-mode ultrasound with color and | [facility] | | duplex doppler CLINICAL INFORMATION: CKD. COMPARISON: | | | 07/22/2006. FINDINGS: RIGHT KIDNEY: Echogenicity: Similar to | | | that of the liver corresponding to mildly echogenic parenchyma. | | | Hydronephrosis: None. Calcification: None. Mass: None. Size: 10.3 | | | cm in long axis. Resistive index: Up to 0.79 LEFT KIDNEY: | | | Echogenicity: Mildly echogenic. Hydronephrosis: None. Calcification: | | | Echogenic focus at the superior pole measuring 3 mm without | | | posterior shadowing. Mass: None. Size: 9.2 cm in long axis. | | | Resistive index: Up to 0.75 URINARY BLADDER: No focal or diffuse | | | wall thickening. Ureteral jets were not visualized. IMPRESSION | | | - No evidence of obstructive uropathy. Mildly echogenic | | | parenchyma bilaterally and abnormal resistive indices, consistent | | | with chronic medical renal disease. Left upper pole renal sinus 3 | | | mm echogenic structure, calcified stone versus focal echogenic fat. | | | Dictated and Signed by: Akash Ashraf MD Electronically | | | signed: 10/05/2017 8:51 PM | | + + + + + | Procedure Note | + + | Julian, Rad Results In - 10/05/2017 8:54 PM PST | | TECHNIQUE: Renal and bladder B-mode ultrasound with color and duplex doppler | | | | CLINICAL INFORMATION: CKD. | | | | COMPARISON: 07/22/2006. | | | | FINDINGS: | | | | RIGHT KIDNEY: | | Echogenicity: Similar to that of the liver corresponding to mildly echogenic | | parenchyma. | | Hydronephrosis: None. | | Calcification: None. | | Mass: None. | | Size: 10.3 cm in long axis. | | Resistive index: Up to 0.79 | | | | LEFT KIDNEY: | | Echogenicity: Mildly echogenic. | | Hydronephrosis: None. | | Calcification: Echogenic focus at the superior pole measuring 3 mm without | | posterior shadowing. | | Mass: None. | | Size: 9.2 cm in long axis. | | Resistive index: Up to 0.75 | | | | URINARY BLADDER: | | No focal or diffuse wall thickening. Ureteral jets were not visualized. | | | | | | IMPRESSION - | | No evidence of obstructive uropathy. | | | | Mildly echogenic parenchyma bilaterally and abnormal resistive indices, | | consistent with chronic medical renal disease. | | | | Left upper pole renal sinus 3 mm echogenic structure, calcified stone versus | | focal echogenic fat. | | | | Dictated and Signed by: Akash Ashraf MD | | Electronically signed: 10/05/2017 8:51 PM | + + + +---------+ + + | Performing | Address | City/State/Zipcode | Phone Number | | Organization | | | | + +---------+ + + | [facility] | | | | + +---------+ + + POC Glucose (10/05/2017 12:30 PM PST) + +---------+ + + + | Component | Value | Ref Range | Performed | Pathologist | | | | | At | Signature | + +---------+ + + + | Glucose, | 266 (H) | 70 - 109 mg/dL | [address] | [place] | [phone] | | [facility] | | [address] | | | - LABORATORY | | | | + + + + + POC Glucose (10/05/2017 6:52 AM PST) + +-------+ + + + | Component | Value | Ref Range | Performed | Pathologist | | | | | At | Signature | + +-------+ + + + | Glucose, | 88 | 70 - 109 mg/dL | [facility] | | | POC | | | [facility] | | | | | | [...] + | [facility] | [address] | [place] | [phone] | | [facility] | | [address] | | | - LABORATORY | | | | + + + + + POC Glucose (10/04/2017 8:18 PM PST) + +---------+ + + + | Component | Value | Ref Range | Performed | Pathologist | | | | | At | Signature | + +---------+ + + + | Glucose, | 231 (H) | 70 - 109 mg/dL | [facility] | | | POC | | | [facility] | | [...] + | [facility] | [address] | [place] | [phone] | | [facility] | | [address] | | | - LABORATORY | | | | + + + + + POC Glucose (10/04/2017 4:56 PM PST) + +---------+ + + + | Component | Value | Ref Range | Performed | Pathologist | | | | | At | Signature | + +---------+ + + + | Glucose, | 197 (H) | 70 - 109 mg/dL | [facility] | | | POC | | | [facility] | | [...] ST. | [address] | [place], [place] | [phone] | | [facility] | | [address] | | | - LABORATORY | | | | + + + + + POC Glucose (10/04/2017 11:52 AM PST) + +---------+ + + + | Component | Value | Ref Range | Performed | Pathologist | | | | | At | Signature | + +---------+ + + + | Glucose, | 204 (H) | 70 - 109 mg/dL | [...] + | [facility] | [address] | [place] | [phone] | | [facility] | | [address] | | | - LABORATORY | | | | + + + + + POC Glucose (10/04/2017 6:43 AM PST) + +---------+ + + + | Component | Value | Ref Range | Performed | Pathologist | | | | | At | Signature | + +---------+ + + + | Glucose, | 118 (H) | 70 - 109 mg/dL | [facility] | | | POC | | | [facility] | | [...] | + + + + + | [facility] | [address] | [place] | [phone] | | [facility] | | [address] | | | - LABORATORY | | | | + + + + + Ferritin (10/04/2017 5:06 AM PST) + +-------+ + + + | Component | Value | Ref Range | Performed | Pathologist | | | | | At | Signature | + +-------+ + + + | FERRITIN | 71 | 11 - 307 ng/mL | [facility] | | | | | | [facility] [...] + + | [facility] | [address] | [place] | [phone] | | [facility] | | [address] | | | - LABORATORY | | | | + + + + + Iron and Transferrin (10/04/2017 5:06 AM PST) + + + + + + | Component | Value | Ref Range | Performed | Pathologist | | | | | At | Signature | + + + + + + | Iron | 82 | 40 - 150 ug/dL | [facility] | | | | | | [facility] | | | | | | MEDICAL | | | | | | CENTER - | | | | | | LABORATORY | | + + + + + + | TRANSFERRIN | 133.1 (L) | 240.0 - 480.0 | [facility] | | | | | mg/dL | [facility] | | | | | | MEDICAL | | | | | | CENTER - | | | | | | LABORATORY | | + + + + + + | TIBC | 186 (L) | 235 - 425 ug/dL | [facility] | | | | | | [facility] | | | | | | MEDICAL | | | | | | CENTER - | | | | | | LABORATORY | | + + + + + + | % | 44.0 | 20.0 - 55.0 % | [facility] | | | SATURATION | | | [facility] | | [...] ST. | [address] | [place], [place] | [phone] | | [facility] | | [address] | | | - LABORATORY | | | | + + + + + Magnesium (10/04/2017 5:06 AM PST) + +---------+ + + + | Component | Value | Ref Range | Performed | Pathologist | | | | | At | Signature | + +---------+ + + + | Magnesium | 1.7 (L) | 1.8 - 2.5 mg/dL | [facility] | | | | [...] [address] | [place] | [phone] | | [facility] | | [address] | | | - LABORATORY | | | | + + + + + Basic Metabolic Panel (10/04/2017 5:06 AM PST) + + + + + + | Component | Value | Ref Range | Performed | Pathologist | | | | | At | Signature | + + + + + + | Na | 137 | 136 - 149 | [facility] | | | | | mmol/L | [facility] | | | | | | MEDICAL | | | | | | CENTER - | | | | | | LABORATORY | | + + + + + + | K | 3.8 | 3.5 - 5.1 | [facility] | | | | | mmol/L | [facility] | | | | | | MEDICAL | | | | | | CENTER - | | | | | | LABORATORY | | + + + + + + | Cl | 103 | 98 - 109 mmol/L | [facility] | | | | | | [facility] | | | | | | MEDICAL | | | | | | CENTER - | | | | | | LABORATORY | | + + + + + + | CO2 | 28 | 24 - 31 mmol/L | [facility] [...] + + + + | Glucose | 105 | 70 - 109 mg/dL | [facility] | | | | | | [facility] | | | | | | MEDICAL | | | | | | CENTER - | | | | | | LABORATORY | | + + + + + + | BUN | 24 (H) | 7 - 18 mg/dL | [facility] | | | | | | [facility] | | | | | | MEDICAL | | | | | | CENTER - | | | | | | LABORATORY | | + + + + + + | Creatinine | 3.11 (H) | 0.60 - 1.30 | [facility] | | | | | mg/dL | [facility] | | | | | | MEDICAL | | | | | | CENTER - | | | | | | LABORATORY | | + + + + + + | eGFR if not | 15 (L)Comment: | >=60 | [facility] | | | | GLOMERULAR FILTRATION | mL/min/1.73m2 | [facility] | | | [facility] | RATE,ESTIMATED | | MEDICAL | | | | mL/min/1.71m9Pgyd than | | CENTER - | | [...] + + + + | Calcium | 8.4 | 8.3 - 10.5 | [facility] | | | | | mg/dL | [facility] | | | | | | MEDICAL | | | | | | CENTER - | | | | | | LABORATORY | | + + + + + + | BUN/Creatin | 7.7 | | [facility] | | | ine Ratio | | | [facility] | | [...] | + + + + + | [facility] | [address] | [place] | [phone] | | [facility] | | [address] | | | - LABORATORY | | | | + + + + + CBC with Differential (10/04/2017 5:06 AM PST) + + + + + + | Component | Value | Ref Range | Performed | Pathologist | | | | | At | Signature | + + + + + + | WBC | 5.1 | 4.0 - 11.0 K/uL | [facility] | | | | | | [facility] | | | | | | MEDICAL | | | | | | CENTER - | | | | | | LABORATORY | | + + + + + + | RBC | 3.44 (L) | 3.70 - 5.20 | [facility] | | | | | M/uL | [facility] | | | | | | MEDICAL | | | | | | CENTER - | | | | | | LABORATORY | | + + + + + + | Hemoglobin | 10.0 (L) | 11.5 - 16.0 | [facility] | | | | | g/dL | [facility] | | | | | | MEDICAL | | | | | | CENTER - | | | | | | LABORATORY | | + + + + + + | Hematocrit | 30.9 (L) | 34.0 - 47.0 % | [facility] | | | | | | [facility] | | | | | | MEDICAL | | | | | | CENTER - | | | | | | LABORATORY | | + + + + + + | MCV | 89.8 | 83.0 - 101.0 fL | [facility] | | | | | | [facility] | | | | | | MEDICAL | | | | | | CENTER - | | | | | | LABORATORY | | + + + + + + | MCH | 29.2 | 28.0 - 35.0 pg | [facility] | | | | | | [facility] | | | | | | MEDICAL | | | | | | CENTER - | | | | | | LABORATORY | | + + + + + + | MCHC | 32.5 | 32.0 - 36.0 | [facility] | | | | | g/dL | [facility] | | | | | | MEDICAL | | | | | | CENTER - | | | | | | LABORATORY | | + + + + + + | RDW-CV | 14.5 | <15.0 % | [facility] | | | | | | [facility] | | | | | | MEDICAL | | | | | | CENTER - | | | | | | LABORATORY | | + + + + + + | Platelet | 171 | 140 - 440 K/uL | [facility] | | | Count | | | [facility] | | | | | | MEDICAL | | | | | | CENTER - | | | | | | LABORATORY | | + + + + + + | MPV | 8.6 | fL | [facility] | | | | | | [facility] | | | | | | MEDICAL | | | | | | CENTER - | | | | | | LABORATORY | | + + + + + + | % | 59.6 | 45.0 - 82.0 % | [facility] | | | Neutrophils | | | [facility] | | | | | | MEDICAL | | | | | | CENTER - | | | | | | LABORATORY | | + + + + + + | % | 30.1 | 20.0 - 45.0 % | [facility] | | | Lymphocytes | | | [facility] | | | | | | MEDICAL | | | | | | CENTER - | | | | | | LABORATORY | | + + + + + + | % Monocytes | 6.1 | 4.0 - 12.0 % | [facility] | | | | | | [facility] | | | | | | MEDICAL | | | | | | CENTER - | | | | | | LABORATORY | | + + + + + + | % | 3.5 | 0.0 - 5.0 % | [facility] | | | Eosinophils | | | [facility] | | | | | | MEDICAL | | | | | | CENTER - | | | | | | LABORATORY | | + + + + + + | % Basophils | 0.7 | 0.0 - 1.0 % | [facility] | | | | | | [facility] | | | | | | MEDICAL | | | | | | CENTER - | | | | | | LABORATORY | | + + + + + + | Absolute | 3.00 | 1.80 - 8.50 | [facility] | | | Neutrophils | | K/uL | [facility] | | | | | | MEDICAL | | | | | | CENTER - | | | | | | LABORATORY | | + + + + + + | Absolute | 1.50 | 0.60 - 3.20 | [facility] | | | Lymphocytes | | K/uL | [facility] | | | | | | MEDICAL | | | | | | CENTER - | | | | | | LABORATORY | | + + + + + + | Absolute | 0.30 | 0.00 - 1.00 | [facility] | | | Monocytes | | K/uL | [facility] | [...] | Absolute | 0.00 | 0.00 - 0.10 | [facility] | [...] + + | [facility] | [address] | [place] | [phone] | | [facility] | | [address] | | | - LABORATORY | | | | + + + + + POC Glucose (10/03/2017 9:11 PM PST) + +---------+ + + + | Component | Value | Ref Range | Performed | Pathologist | | | | | At | Signature | + +---------+ + + + | Glucose, | 130 (H) | 70 - 109 mg/dL | [...] [address] | [place] | [phone] | | [facility] | | [address] | | | - LABORATORY | | | | + + + + + POC Glucose (10/03/2017 4:37 PM PST) + +---------+ + + + | Component [...] + | [facility] | [address] | [place] | [phone] | | [facility] | | [address] | | | - LABORATORY | | | | + + + + + POC Glucose (10/03/2017 11:50 AM PST) + +---------+ + + + | Component | Value | Ref Range | Performed | Pathologist | | | | | At | Signature | + +---------+ + + + | Glucose, | 180 (H) | 70 - 109 mg/dL | [facility] | | | POC | | | [facility] | | | | | [...] + | [facility] | [address] | [place] | [phone] | | [facility] | | [address] | | | - LABORATORY | | | | + + + + + POC Glucose (10/03/2017 6:31 AM PST) + +---------+ + + + | Component | Value | Ref Range | Performed | Pathologist | | | | | At | Signature | + +---------+ + + + | Glucose, | 110 (H) | 70 - 109 mg/dL | [...] + + + + + | [facility] | [address] | [place] | [phone] | | [facility] | | [address] | | | - LABORATORY | | | | + + + + + Magnesium (10/03/2017 6:29 AM PST) + +-------+ + + + | Component | Value | Ref Range | Performed | Pathologist | | | | | At | Signature | + +-------+ + + + | Magnesium | 1.8 | 1.8 - 2.5 mg/dL | [facility] | | | | [...] + + | [facility] | [address] | [place] | [phone] | | [facility] | | [address] | | | - LABORATORY | | | | + + + + + Basic Metabolic Panel (10/03/2017 6:29 AM PST) + + + + + + | Component | Value | Ref Range | Performed | Pathologist | | | | | At | Signature | + + + + + + | Na | 138 | 136 - 149 | [facility] | | | | | mmol/L | [facility] | | | | | | MEDICAL | | | | | | CENTER - | | | | | | LABORATORY | | + + + + + + | K | 4.1 | 3.5 - 5.1 | [facility] | | | | | mmol/L | [facility] | | | | | | MEDICAL | | | | | | CENTER - | | | | | | LABORATORY | | + + + + + + | Cl | 105 | 98 - 109 mmol/L | [facility] | | | | | | [facility] | | | | | | MEDICAL | | | | | | CENTER - | | | | | | LABORATORY | | + + + + + + | CO2 | 25 | 24 - 31 mmol/L | [facility] [...] + + + + | Glucose | 105 | 70 - 109 mg/dL | [facility] | | | | | | [facility] | | | | | | MEDICAL | | | | | | CENTER - | | | | | | LABORATORY | | + + + + + + | BUN | 25 (H) | 7 - 18 mg/dL | [facility] | | | | | | [facility] | | | | | | MEDICAL | | | | | | CENTER - | | | | | | LABORATORY | | + + + + + + | Creatinine | 3.06 (H) | 0.60 - 1.30 | [facility] | | | | | mg/dL | [facility] | | | | | | MEDICAL | | | | | | CENTER - | | | | | | LABORATORY | | + + + + + + | eGFR if not | 15 (L)Comment: | >=60 | [facility] | | | | GLOMERULAR FILTRATION | mL/min/1.73m2 | [facility] | | | [facility] | RATE,ESTIMATED | | MEDICAL | | | | mL/min/1.31d0Llpp than | | CENTER - | | [...] + + + + | Calcium | 8.7 | 8.3 - 10.5 | [facility] | | | | | mg/dL | [facility] | | | | | | MEDICAL | | | | | | CENTER - | | | | | | LABORATORY | | + + + + + + | BUN/Creatin | 8.2 | | [facility] | | | ine [...] [address] | [place] | [phone] | | [facility] | | [id number] | | | - LABORATORY | | | | + + + + + CBC with Differential (10/03/2017 6:29 AM PST) + + + + + + | Component | Value | Ref Range | Performed | Pathologist | | | | | At | Signature | + + + + + + | WBC | 5.4 | 4.0 - 11.0 K/uL | [facility] | | | | | | [facility] | | | | | | MEDICAL | | | | | | CENTER - | | | | | | LABORATORY | | + + + + + + | RBC | 3.38 (L) | 3.70 - 5.20 | [facility] | | | | | M/uL | [facility] | | | | | | MEDICAL | | | | | | CENTER - | | | | | | LABORATORY | | + + + + + + | Hemoglobin | 10.2 (L) | 11.5 - 16.0 | [facility] | | | | | g/dL | [facility] | | | | | | MEDICAL | | | | | | CENTER - | | | | | | LABORATORY | | + + + + + + | Hematocrit | 29.9 (L) | 34.0 - 47.0 % | [facility] | | | | | | [facility] | | | [facility] | | [facility] | | | | | | CENTER - | | | | | | LABORATORY | | + + + + + + | MCV | 88.5 | 83.0 - 101.0 fL | [facility] | | | | | | [facility] | | | | | | [facility]ICAL | | | | | | CENTER - | | | | | | LABORATORY | | + + + + + + | MCH | 30.2 | 28.0 - 35.0 pg | [facility] | | | | | | [facility] | | [facility] | | | [facility]ICAL | | | | | | CENTER - | | | | | | LABORATORY | | + + + + + + | MCHC | 34.1 | 32.0 - 36.0 | [facility] | | | | | g/dL | [facility] | | | | | | MEDICAL | | | | | | CENTER - | | | | | | LABORATORY | | + + + + + + | RDW-CV | 14.3 | <15.0 % | [facility] | | | | | | [facility] | | | | | | MEDICAL | | | | | | CENTER - | | | | | | LABORATORY | | + + + + + + | Platelet | 192 | 140 - 440 K/uL | [facility] | | | Count | | | [facility] | | | | | | [facility]ICAL | | | | | | CENTER - | | | | | | LABORATORY | | + + + + + + | MPV | 8.7 | fL | [facility] | | | | | | [facility] | | | | | | [facility] | | | | | | CENTER - | | | | | | LABORATORY | | + + + + + + | % | 64.1 | 45.0 - 82.0 % | [facility] | | | Neutrophils | | | [facility] | | | | | | MEDICAL | | | | | | CENTER - | | | | | | LABORATORY | | + + + + + + | % | 28.7 | 20.0 - 45.0 % | [facility] | | | Lymphocytes | | | [facility] | | | | | | MEDICAL | | | | | | CENTER - | | | | | | LABORATORY | | + + + + + + | % Monocytes | 4.6 | 4.0 - 12.0 % | [facility] | | | | | | [facility] | | | | | | [facility] | | | | | | CENTER - | | | | | | LABORATORY | | + + + + + + | % | 1.9 | 0.0 - 5.0 % | [facility] | | | Eosinophils | | | [facility] | | | | | | MEDICAL | | | | | | CENTER - | | | | | | LABORATORY | | + + + + + + | % Basophils | 0.7 | 0.0 - 1.0 % | [facility] | | | | | | [facility] | | | | | | [facility] | | | | | | [facility] - | | | | | | LABORATORY | | + + + + + + | Absolute | 3.50 | 1.80 - 8.50 | [facility] | | | Neutrophils | | K/uL | [facility] | | | | | | [facility] | | | | | | CENTER - | | | | | | LABORATORY | | + + + + + + | Absolute | 1.60 | 0.60 - 3.20 | [facility] | | | Lymphocytes | | K/uL | [facility] | | | | | | [facility] | | | | | | CENTER - | | | | | | LABORATORY | | + + + + + + | Absolute | 0.20 | 0.00 - 1.00 | [facility] | | | Monocytes | | K/uL | [facility] | | | | | | [facility] | | | | | | CENTER - | | | | | | LABORATORY | | + + + + + + | Absolute | 0.10 | 0.00 - 0.40 | [facility] | | | Eosinophils | | K/uL | [facility] | | | | | | MEDICAL | | | | | | CENTER - | | | | | | LABORATORY | | + + + + + + | Absolute | 0.00 | 0.00 - 0.10 | [facility] | | | Basophils | | K/uL | [facility] | [...] [address] | [place] | [phone] | | [facility] | | [address] | | | - LABORATORY | | | | + + + + + POC Glucose (10/02/2017 10:13 PM PST) + +---------+ + + + | Component | Value | Ref Range | Performed | Pathologist | | | | | At | Signature | + +---------+ + + + | Glucose, | 163 (H) | 70 - 109 mg/dL | [...] [address] | [place] | [phone] | | [facility] | | [address] | | | - LABORATORY | | | | + + + + + Basic Metabolic Panel (10/02/2017 4:37 PM PST) + + + + + + | Component | Value | Ref Range | Performed | Pathologist | | | | | At | Signature | + + + + + + | Na | 139 | 136 - 149 | [facility] | | | | | mmol/L | [facility] | | | | | | MEDICAL | | | | | | CENTER - | | | | | | LABORATORY | | + + + + + + | K | 4.7 | 3.5 - 5.1 | [facility] | | | | | mmol/L | [facility] | | | | | | MEDICAL | | | | | | CENTER - | | | | | | LABORATORY | | + + + + + + | Cl | 109 | 98 - 109 mmol/L | [facility] | | | | | | [facility] | [facility] | [facility] | [facility] | | | | | | CENTER - | | | | | | LABORATORY | | + + + + + + | CO2 | 24 | 24 - 31 mmol/L | [facility] [...] + + + + | Glucose | 140 (H) | 70 - 109 mg/dL | [facility] | | | | | | [facility] | | | | | | [facility] | | | | | | CENTER - | | | | | | LABORATORY | | + + + + + + | BUN | 26 (H) | 7 - 18 mg/dL | [facility] | | | | | | [facility] | | | | | | MEDICAL | | | | | | CENTER - | | | | | | LABORATORY | | + + + + + + | Creatinine | 3.13 (H) | 0.60 - 1.30 | [facility] | | | | | mg/dL | [facility] | | | | | | MEDICAL | | | | | | CENTER - | | | | | | LABORATORY | | + + + + + + | eGFR if not | 15 (L)Comment: | >=60 | [facility] | | | | GLOMERULAR FILTRATION | mL/min/1.73m2 | [facility] | | | [facility] [employer] [facility] | RATE,ESTIMATED | | MEDICAL | | | | mL/min/1.04w6Umer than | | CENTER - | | [...] + + + + | Calcium | 8.8 | 8.3 - 10.5 | [facility] | | | | | mg/dL | [facility] | | | | | | MEDICAL | | | | | | CENTER - | | | | | | LABORATORY | | + + + + + + | BUN/Creatin | 8.3 | | [facility] | | | ine Ratio | | | [facility] | | [...] + | [facility] | [address] | [place] | [phone] | | [facility] | | [address] | | | - LABORATORY | | | | + + + + + POC Glucose (10/02/2017 11:52 AM PST) + +---------+ + + + | Component | Value | Ref Range | Performed | Pathologist | | | | | At | Signature | + +---------+ + + + | Glucose, | 142 (H) | 70 - 109 mg/dL | [facility] | | | POC | | | [facility] | | | | | | [...] ST. | [address] | [place], [place] | [phone] | | [facility] | | [address] | | | - LABORATORY | | | | + + + + + VAS Lower Extremity Venous Bilateral (10/02/2017 10:07 AM [facility]) + + | Specimen | + + | | + + + + + | Narrative | Performed At | + + + | VAS LOWER EXTREMITY VENOUS BILATERAL 10/02/2017 9:30 AM HISTORY: | [facility] | | Evaluate for DVT, new onset of bilateral leg swelling. | | | COMPARISON: None. PROTOCOL: Choi scale and Doppler images of the | | | lower extremity veins. FINDINGS: The bilateral common femoral, | | | greater saphenous, profunda femoral, superficial femoral, and | | | popliteal veins demonstrate normal flow, augmentation, and | | | compression. IMPRESSION - No evidence for DVT. Dictated and | | | Signed by: Salvatore Nunez MD Electronically signed: 10/02/2017 11:28 | | | AM | | + + + + + | Procedure Note | + + | Julian, Rad Results In - 10/02/2017 11:32 AM PST VAS LOWER EXTREMITY VENOUS BILATERAL | | 10/02/2017 9:30 AM HISTORY: Evaluate for DVT, new onset of bilateral leg | | swelling.COMPARISON: None.PROTOCOL: Choi scale and Doppler images of the lower extremity | | veins.FINDINGS:The bilateral common femoral, greater saphenous, profunda femoral, | | superficialfemoral, and popliteal veins demonstrate normal flow, augmentation, | | andcompression.IMPRESSION -No evidence for DVT.Dictated and Signed by: Salvatore Nunez MD | | Electronically signed: 10/02/2017 11:28 AM | | | |FINDINGS: | |The bilateral common femoral, greater saphenous, profunda femoral, superficial | |femoral, and popliteal veins demonstrate normal flow, augmentation, and | |compression. | | | |IMPRESSION - | |No evidence for DVT. | | | |Dictated and Signed by: Salvatore Nunez MD | | Electronically signed: 10/02/2017 11:28 AM | + + + +---------+ + + | Performing | Address | City/State/Zipcode | Phone Number | | Organization | | | | + +---------+ + + | [facility] | | | | + +---------+ + + ECHO Complete (10/02/2017 9:09 AM PST) + +-------+ + + + | Component | Value | Ref Range | Performed | Pathologist | | | | | At | Signature | + +-------+ + + + | LVEF-TTE | 75 | | [facility] | | | TRANSTHORAC | | | | | | IC ECHO | | | | | + +-------+ + + + + + | Specimen | + + | | + + + +-- + | Narrative | P erformed At | + +-- + | Transthoracic | [facility] | | Echocardiography Report (TTE) Demographics Patient Name ANDRES | | | ESTEFANI Room Number 454 R | | | Patient Number [id number] Date of Study | | | 10/02/2017 Visit Number [id number] Accession | | | [id number] Referring Physician LOY RUPAL Number | | | 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 Procedure dateDate: 10/02/2017Start: 08:22 AM Technical | | | Quality: Adequate visualizationStudy Location: ICUIndications: HEART | | | FAILURE UNSPECIFIED 428.9/ I50.9.Patient Status: RoutineHeight: 68 | | | inchesWeight: 195 poundsBSA: 2.02 m^2BMI: 29.65 kg/m^2 | | | ConclusionsSummaryLeft ventricle is normal in size and function. | | | Ejection fraction isestimated at 75%.Decreased LV compliance, grade II | | | diastolic dysfunction.Moderately dilated LANormal right ventricular | | | size.Right ventricle global systolic function is normal.MILD MRMILD TR | | | with normal RVSP.Minimal IVC collapse with inspiration.Normal Aortic | | | root size. | | | Signature | | | | | | AM | | | -------- FindingsMitral ValveMILD MRAortic ValveAortic valve is | | | trileaflet without significant stenosis or regurgitation.Tricuspid | | | ValveMILD TR with normal RVSP. Left AtriumModerately dilated LALeft | | | VentricleLeft ventricle is normal in size and function. Ejection | | | fraction isestimated at 75%.Decreased LV compliance, grade II | | | diastolic dysfunction.Right AtriumNormal right atrial size.Right | | | VentricleNormal right ventricular size.Right ventricle global systolic | | | function is normal.Pericardial EffusionNo evidence of pericardial | | | effusion. MiscellaneousMinimal IVC collapse with inspiration.Normal | | | Aortic root size. Valves Mitral Valve Peak E-Wave: 1.05 m/s Peak | | | A-Wave: 1.3 m/s Tissue Doppler Septal e' Velocity: 0.07 m/s Septal | | | E/e' Ratio:15.97 Aortic Valve Tricuspid Valve TR Velocity: 2.38 m/s | | | LVOT LVOT Diameter: 1.84 cm Structures Left Atrium LA A/P | | | Dimension: 3.27 cm LA Area: 20.28 cm^2 | | | LA Vol/BSA Index: 35 mL/m^2 LA Volume: | | | 71.7 ml | | | EF Npfwhnuko56% Left Ventricle Diastolic Dimension: 5.37 cm | | | Septum Diastolic: 0.84 cm PW Diastolic: 1.11 cm EF Calculated: 75% | | | Miscellaneous Aorta Aortic Root: 3.09 cm Ascending Aorta: 3.4 cm | | |MILD MR | | |MILD TR with normal RVSP. | | |Minimal IVC collapse with inspiration. | | |Normal Aortic root size. | | | | | |Signature | | | | | | Electronically signed by CLAUDIA HUGHES MD(Interpreting physician) on | | | 10/02/2017 09:40 AM | | | | | | | | |Findings | | |Mitral Valve | | |MILD MR | | |Aortic Valve | | |Aortic valve is trileaflet without significant stenosis or regurgitation. | | |Tricuspid Valve | | |MILD TR with normal RVSP. | | | | | |Left Atrium | | |Moderately dilated LA | | |Left Ventricle | | |Left ventricle is normal in size and function. Ejection fraction is | | |estimated at 75%. | | |Decreased LV compliance, grade II diastolic dysfunction. | | |Right Atrium | | |Normal right atrial size. | | |Right Ventricle | | |Normal right ventricular size. | | |Right ventricle global systolic function is normal. | | |Pericardial Effusion | | |No evidence of pericardial effusion. | | | | | |Miscellaneous | | |Minimal IVC collapse with inspiration. | | |Normal Aortic root size. | | | | | |Valves | | | | | | Mitral Valve | | | | | | Peak E-Wave: 1.05 m/s | | | Peak A-Wave: 1.3 m/s | | | | | | Tissue Doppler | | | | | | Septal e' Velocity: 0.07 m/s | | | Septal E/e' Ratio:15.97 | | | | | | Aortic Valve | | | | | | Tricuspid Valve | | | | | | TR Velocity: 2.38 m/s | | | | | | LVOT | | | | | | LVOT Diameter: 1.84 cm | | | | | |Structures | | | | | | Left Atrium | | | | | | LA A/P Dimension: 3.27 cm LA Area: 20.28 cm^2 | | | LA Vol/BSA Index: 35 mL/m^2 LA Volume: 71.7 ml | | | EF Sdtlojctm57% | | | | | | Left Ventricle | | | | | | Diastolic Dimension: 5.37 cm | | | Septum Diastolic: 0.84 cm | | | PW Diastolic: 1.11 cm | | | EF Calculated: 75% | | | | | | Miscellaneous | | | | | | Aorta | | | | | | Aortic Root: 3.09 cm | | | Ascending Aorta: 3.4 cm | | | | | + +-- + + + | Procedure Note | + + | Anjum Jordan Results In - 10/02/2017 9:41 AM [facility] Transthoracic Echocardiography Report | | (TTE) Demographics Patient Name ANDRES BULLOCK Room Number 454 | | R Patient Number [id number] Date of Study 10/02/2017 Visit Number | | [id number] Referring Physician LOY MATA Number | | 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 Age 72 year(s) Interpreting | | CLAUDIA HUGHES MD Locomotive Engineer Gender | | Female Nurse Stress TechnicianProcedureType of | | Study TTE procedure: ECHO Complete.Procedure dateDate: 10/02/2017Start: 08:22 | | AMTechnical Quality: Adequate visualizationStudy Location: ICUIndications: HEART FAILURE | | UNSPECIFIED 428.9/ I50.9.Patient Status: RoutineHeight: 68 inchesWeight: 195 poundsBSA: | | 2.02 m^2BMI: 29.65 kg/m^2ConclusionsSummaryLeft ventricle is normal in size and | | function. Ejection fraction isestimated at 75%.Decreased LV compliance, grade II | | diastolic dysfunction.Moderately dilated LANormal right ventricular size.Right ventricle | | global systolic function is normal.MILD MRMILD TR with normal RVSP.Minimal IVC collapse | | with inspiration.Normal Aortic root | | size.Signature | | -- | | | | AM FindingsMi | | tral ValveMILD MRAortic ValveAortic valve is trileaflet without significant stenosis or | | regurgitation.Tricuspid ValveMILD TR with normal RVSP.Left AtriumModerately dilated | | LALeft VentricleLeft ventricle is normal in size and function. Ejection fraction | | isestimated at 75%.Decreased LV compliance, grade II diastolic dysfunction.Right | | AtriumNormal right atrial size.Right VentricleNormal right ventricular size.Right | | ventricle global systolic function is normal.Pericardial EffusionNo evidence of | | pericardial effusion.MiscellaneousMinimal IVC collapse with inspiration.Normal Aortic | | root size.Valves Mitral Valve Peak E-Wave: 1.05 m/s Peak A-Wave: 1.3 m/s Tissue Doppler | | Septal e' Velocity: 0.07 m/s Septal E/e' Ratio:15.97 Aortic Valve Tricuspid Valve TR | | Velocity: 2.38 m/s LVOT LVOT Diameter: 1.84 cmStructures Left Atrium LA A/P Dimension: | | 3.27 cm LA Area: 20.28 cm^2 LA Vol/BSA Index: 35 mL/m^2 | | LA Volume: 71.7 ml EF | | Oupjncpsr29% Left Ventricle Diastolic Dimension: 5.37 cm Septum Diastolic: 0.84 cm PW | | Diastolic: 1.11 cm EF Calculated: 75% Miscellaneous Aorta Aortic Root: 3.09 cm Ascending | | Aorta: 3.4 cm | |Patient Status: Routine | |Height: 68 inchesWeight: 195 poundsBSA: 2.02 m^2BMI: 29.65 kg/m^2 | | | |Conclusions | |Summary | |Left ventricle is normal in size and function. Ejection fraction is | |estimated at 75%. | |Decreased LV compliance, grade II diastolic dysfunction. | |Moderately dilated LA | |Normal right ventricular size. | |Right ventricle global systolic function is normal. | |MILD MR | |MILD TR with normal RVSP. | |Minimal IVC collapse with inspiration. | |Normal Aortic root size. | | | |Signature | | | | Electronically signed by CLAUDIA HUGHES MD(Interpreting physician) on | | 10/02/2017 09:40 AM | | | | | |Findings | |Mitral Valve | |MILD MR | |Aortic Valve | |Aortic valve is trileaflet without significant stenosis or regurgitation. | |Tricuspid Valve | |MILD TR with normal RVSP. | | | |Left Atrium | |Moderately dilated LA | |Left Ventricle | |Left ventricle is normal in size and function. Ejection fraction is | |estimated at 75%. | |Decreased LV compliance, grade II diastolic dysfunction. | |Right Atrium | |Normal right atrial size. | |Right Ventricle | |Normal right ventricular size. | |Right ventricle global systolic function is normal. | |Pericardial Effusion | |No evidence of pericardial effusion. | | | |Miscellaneous | |Minimal IVC collapse with inspiration. | |Normal Aortic root size. | | | |Valves | | | | Mitral Valve | | | | Peak E-Wave: 1.05 m/s | | Peak A-Wave: 1.3 m/s | | | | Tissue Doppler | | | | Septal e' Velocity: 0.07 m/s | | Septal E/e' Ratio:15.97 | | | | Aortic Valve | | | | Tricuspid Valve | | | | TR Velocity: 2.38 m/s | | | | LVOT | | | | LVOT Diameter: 1.84 cm | | | |Structures | | | | Left Atrium | | | | LA A/P Dimension: 3.27 cm LA Area: 20.28 cm^2 | | LA Vol/BSA Index: 35 mL/m^2 LA Volume: 71.7 ml | | EF Qnemoivzf32% | | | | Left Ventricle | | | | Diastolic Dimension: 5.37 cm | | Septum Diastolic: 0.84 cm | | PW Diastolic: 1.11 cm | | EF Calculated: 75% | | | | Miscellaneous | | | | Aorta | | | | Aortic Root: 3.09 cm | | Ascending Aorta: 3.4 cm | + + + +---------+ + + | Performing | Address | City/State/Zipcode | Phone Number | | Organization | | | | + +---------+ + + | [facility] | | | | + +---------+ + + Culture, MRSA (10/02/2017 8:03 AM PST) + + + + + + | Component | Value | Ref Range | Performed | Pathologist | | | | | At | Signature | + + + + + + | Culture | Negative for MRSA by | | [facility] | | | | chromogenic agar method | | [facility] | | | | | | MEDICAL | | | | | | CENTER - | | | | | | LABORATORY | | + + + + + + + + | Specimen | + + | Respiratory - Both | | anterior nares (body | | structure) | + + + + + + + | Performing | Address | City/State/Zipcode | Phone Number | | Organization | | | | + + + + + | [facility] | [address] | [place] | [phone] | | [facility] | | [address] | | | - LABORATORY | | | | + + + + + POC Glucose (10/02/2017 7:39 AM PST) + +---------+ + + + | Component | Value | Ref Range | Performed | Pathologist | | | | | At | Signature | + +---------+ + + + | Glucose, | 111 (H) | 70 - 109 mg/dL | [facility] | | | POC | | | [facility] | | [...] + | [facility] | [address] | [place] | [phone] | | [facility] | | [address] | | | - LABORATORY | | | | + + + + + Lipid Panel (10/02/2017 2:41 AM PST) + + + + + + | Component | Value | Ref Range | Performed | Pathologist | | | | | At | Signature | + + + + + + | Triglycerid | 119 | 35 - 160 mg/dL | [facility] | | | es | | | [facility] | | | | | | MEDICAL | | | | | | CENTER - | | | | | | LABORATORY | | + + + + + + | Cholesterol | 198 | 150 - 200 mg/dL | [facility] | | | | | | [facility] | | | | | | MEDICAL | | | | | | CENTER - | | | | | | LABORATORY | | + + + + + + | HDL | 28Comment: New HDL | 28 - 83 mg/dL | [facility] | | | | Reference Range as of | | [facility] | | | | May 23, 2015 | | MEDICAL | | | | Values may be 10-20% | | CENTER - | | | | lower with new, | | LABORATORY | | | | standardized method. | | | | + + + + + + | Chol/HDL | 7.1 | | [facility] | | | Ratio | | | [facility] | | | | | | MEDICAL | | | | | | CENTER - | | | | | | LABORATORY | | + + + + + + | LDL, | 146 (H) | <=130 mg/dL | [facility] | | | Calculated | | | [facility] | | [...] [address] | [place] | [phone] | | [facility] | | [address] | | | - LABORATORY | | | | + + + + + Hemoglobin A1C (10/02/2017 2:41 AM PST) + +---------+ + + + | Component | Value | Ref Range | Performed | Pathologist | | | | | At | Signature | + +---------+ + + + | Hemoglobin | 9.1 (H) | 4.3 - 6.0 % | [facility] | | | A1c | | | [facility] | | | | | | MEDICAL | | | | | | CENTER - | | | | | | LABORATORY | | + +---------+ + + + | Estimated | 214 | mg/dL | [facility] | | | Average | | | [facility] | | | Glucose | | | [...] + | [facility] | [address] | [place] | [phone] | | [facility] | | [address] | | | - LABORATORY | | | | + + + + + Troponin I (10/02/2017 2:41 AM PST) + + + + + + | Component | Value | Ref Range | Performed | Pathologist | | | | | At | Signature | + + + + + + | Troponin I | 0.01Comment: Reference | <0.06 ng/mL | [facility] | | | | Ranges:0.00-0.06 = | | [facility] | | | | NORMAL>0.06 = | | MEDICAL | | | | SUSPICIOUS FOR | | CENTER - | | | | MYOCARDIAL DAMAGE NOTE: | | LABORATORY | | | | Values greater than 0.50 | | | | | | ng/mL have been shown | | | | | | to be strongly | | | | | | associated with acute | | | | | | myocardial infarction. | | | | | | The [employer] | | | | | | Cardiology (ACC) | | | | | | recommends a decision | | | | | | limit of 0.06 ng/mL for | | | | | | this assay. Results | | | | | | greater than 0.06 can | | | | | | reflect a pre-infarct | | | | | | acute coronary syndrome, | | | | | | but can also reflect | | | | | | myocardial necrosis or | | | | | | injury that is not due | | | | | | to coronary artery | | | | | | disease. Some of these | | | | | | causes are sepsis, | | | | | | hypocolemia, atrial | | | | | | fibrillation, heart | | | | | | failure, pulmonary | | | | | | embolism, myocarditis, | | | | | | myocardial contusion, | | | | | | and renal failure. The | | | | | | diagnosis of myocardial | | | | | | infarction should be | | | | | | based on a combination | | | | | | of the patient's | | | | | | clinical presentation | | | | | | and the clinical | | | | | | laboratory test results | | | | | | (especially serial | | | | | | troponin levels). | | | | + + + + + + + + | Specimen | + + | Blood | + + + + + + + | Performing | Address | City/State/Zipcode | Phone Number | | Organization | | | | + + + + + | [facility] | [address] | [place] | [phone] | | [facility] | | [address] | | | - LABORATORY | | | | + + + + + Magnesium (10/02/2017 2:41 AM PST) + +-------+ + + + | Component | Value | Ref Range | Performed | Pathologist | | | | | At | Signature | + +-------+ + + + | Magnesium | 1.8 | 1.8 - 2.5 mg/dL | [facility] | | | | [...] [facility] | [address] | [place], [place] | [phone] | | [facility] | | [address] | | | - LABORATORY | | | | + + + + + Basic Metabolic Panel (10/02/2017 2:41 AM PST) + + + + + + | Component | Value | Ref Range | Performed | Pathologist | | | | | At | Signature | + + + + + + | Na | 139 | 136 - 149 | [facility] | | | | | mmol/L | [facility] | | | | | | MEDICAL | | | | | | CENTER - | | | | | | LABORATORY | | + + + + + + | K | 4.7 | 3.5 - 5.1 | [facility] | | | | | mmol/L | [facility] | | | | | | MEDICAL | | | | | | CENTER - | | | | | | LABORATORY | | + + + + + + | Cl | 112 (H) | 98 - 109 mmol/L | [facility] | | | | | | [facility] | | | | | | MEDICAL | | | | | | CENTER - | | | | | | LABORATORY | | + + + + + + | CO2 | 25 | 24 - 31 mmol/L | [facility] | | | | | | [facility] | | | | | | MEDICAL | | | | | | CENTER - | | | | | | LABORATORY | | + + + + + + | Anion Gap | 2 (L) | 3 - 16 mmol/L | [facility] | | | | | | [facility] | | | | | | MEDICAL | | | | | | CENTER - | | | | | | LABORATORY | | + + + + + + | Glucose | 158 (H) | 70 - 109 mg/dL | [facility] | | | | | | [facility] | | | | | | MEDICAL | | | | | | CENTER - | | | | | | LABORATORY | | + + + + + + | BUN | 27 (H) | 7 - 18 mg/dL | [facility] | | | | | | [facility] | | | | | | MEDICAL | | | | | | CENTER - | | | | | | LABORATORY | | + + + + + + | Creatinine | 3.03 (H) | 0.60 - 1.30 | [facility] | | | | | mg/dL | [facility] | | | | | | MEDICAL | | | | | | CENTER - | | | | | | LABORATORY | | + + + + + + | eGFR if not | 15 (L)Comment: | >=60 | [facility] | | | | GLOMERULAR FILTRATION | mL/min/1.73m2 | [facility] | | | [employer] | RATE,ESTIMATED | | MEDICAL | | | | mL/min/1.77r1Fujh than | | CENTER - | | [...] + + + | Calcium | 8.3 | 8.3 - 10.5 | [facility] | | | | | mg/dL | [facility] | | | | | | MEDICAL | | | | | | CENTER - | | | | | | LABORATORY | | + + + + + + | BUN/Creatin | 8.9 | | [facility] | | | ine Ratio | | | [facility] | | [...] + | [facility] | [address] | [place] | [phone] | | [facility] | | [address] | | | - LABORATORY | | | | + + + + + CBC with Differential (10/02/2017 2:41 AM PST) + + + + + + | Component | Value | Ref Range | Performed | Pathologist | | | | | At | Signature | + + + + + + | WBC | 6.6 | 4.0 - 11.0 K/uL | [facility] | | | | | | [facility] | | | | | | MEDICAL | | | | | | CENTER - | | | | | | LABORATORY | | + + + + + + | RBC | 2.94 (L) | 3.70 - 5.20 | [facility] | | | | | M/uL | [facility] | | | | | | MEDICAL | | | | | | CENTER - | | | | | | LABORATORY | | + + + + + + | Hemoglobin | 8.6 (L) | 11.5 - 16.0 | [facility] | | | | | g/dL | [facility] | | | | | | MEDICAL | | | | | | CENTER - | | | | | | LABORATORY | | + + + + + + | Hematocrit | 26.5 (L) | 34.0 - 47.0 % | [facility] | | | | | | [facility] | | | | | | MEDICAL | | | | | | CENTER - | | | | | | LABORATORY | | + + + + + + | MCV | 90.0 | 83.0 - 101.0 fL | [facility] | | | | | | [facility] | | | | | | MEDICAL | | | | | | CENTER - | | | | | | LABORATORY | | + + + + + + | MCH | 29.2 | 28.0 - 35.0 pg | [facility] | | | | | | [facility] | | | | | | MEDICAL | | | | | | CENTER - | | | | | | LABORATORY | | + + + + + + | MCHC | 32.4 | 32.0 - 36.0 | [facility] | | | | | g/dL | [facility] | | | | | | MEDICAL | | | | | | CENTER - | | | | | | LABORATORY | | + + + + + + | RDW-CV | 14.4 | <15.0 % | [facility] | | | | | | [facility] | | | | | | MEDICAL | | | | | | CENTER - | | | | | | LABORATORY | | + + + + + + | Platelet | 170 | 140 - 440 K/uL | [facility] | | | Count | | | [facility] | | | | | | MED[facility] | | | | | | CENTER - | | | | | | LABORATORY | | + + + + + + | MPV | 8.5 | fL | [facility] | | | | | | [facility] | | | | | | [facility] | | | | | | CENTER - | | | | | | LABORATORY | | + + + + + + | % | 75.7 | 45.0 - 82.0 % | [facility] | | | Neutrophils | | | [facility] | | | | | | MEDICAL | | | | | | CENTER - | | | | | | LABORATORY | | + + + + + + | % | 18.8 (L) | 20.0 - 45.0 % | [facility] | | | Lymphocytes | | | [facility] | | | | | | MEDICAL | | | | | | CENTER - | | | | | | LABORATORY | | + + + + + + | % Monocytes | 3.5 (L) | 4.0 - 12.0 % | [facility] | | | | | | [facility] | | | | | | MED[facility] | | | | | | CENTER - | | | | | | LABORATORY | | + + + + + + | % | 1.1 | 0.0 - 5.0 % | [facility] | | | Eosinophils | | | [facility] | | | | | | MEDICAL | | | | | | CENTER - | | | | | | LABORATORY | | + + + + + + | % Basophils | 0.9 | 0.0 - 1.0 % | [facility] [...] | Neutrophils | | K/uL | [facility] | | | | | | MEDICAL | | | | | | CENTER - | | | | | | LABORATORY | | + + + + + + | Absolute | 1.20 | 0.60 - 3.20 | [facility] | | | Lymphocytes | | K/uL | [facility] | | | | | | MED[facility] | | | | | | CENTER - | | | | | | LABORATORY | | + + + + + + | Absolute | 0.20 | 0.00 - 1.00 | [facility] | | | Monocytes | | K/uL | [facility] | | | | | | [facility] | | | | | | CENTER - | | | | | | LABORATORY | | + + + + + + | Absolute | 0.10 | 0.00 - 0.40 | [facility] | | | Eosinophils | | K/uL | [facility] | | | | | | MEDICAL | | | | | | CENTER - | | | | | | LABORATORY | | + + + + + + | Absolute | 0.10 | 0.00 - 0.10 | [facility] | | | Basophils | | K/uL | [facility] | | | | | | [...] + + | [facility] | [address] | [place] | [phone] | | [facility] | | [address] | | | - LABORATORY | | | | + + + + + ECG 12 lead (10/01/2017 10:26 PM PST) + + + + + + | Component | Value | Ref Range | Performed | Pathologist | | | | | At | Signature | + + + + + + | VENTRICULAR | 74 | BPM | [facility] | | | RATE EKG | | | | | + + + + + + | ATRIAL RATE | 74 | BPM | [facility] | | + + + + + + | P-R | 136 | ms | [facility] | | | INTERVAL | | | | | + + + + + + | QRS | 132 | ms | [facility] | | | DURATION | | | | | + + + + + + | Q-T | 438 | ms | [facility] | | | INTERVAL | | | | | + + + + + + | Q-T | 486 | ms | [facility] | | | INTERVAL | | | | | | (CORRECTED) | | | | | + + + + + + | P WAVE AXIS | 73 | degrees | [facility] | | + + + + + + | QRS AXIS | 92 | degrees | [facility] | | + + + + + + | T AXIS | 71 | degrees | [facility] | | + + + + + + | INTERPRETAT | Sinus rhythm with | | [facility] | | | ION TEXT | premature atrial | | | | | | complexesRight bundle | | | | | | branch blockProlonged | | | | | | QTcAbnormal ECGNo | | | | | | previous ECGs | | | | | | availableConfirmed by | | | | | | KEN ELLISON MD ([id number]) | | | | | | on 10/02/2017 7:49:20 AM | | | | + + + + + + + + | Specimen | + + | | + + + + + | Narrative | Performed At | + + + | | | + + + + +---------+ + + | Performing | Address | City/State/Zipcode | Phone Number | | Organization | | | | + +---------+ + + | [facility] | | | | + +---------+ + + POC Glucose (10/01/2017 10:12 PM PST) + +---------+ + + + | Component | Value | Ref Range | Performed | Pathologist | | | | | At | Signature | + +---------+ + + + | Glucose, | 194 (H) | 70 - 109 mg/dL | [...] [address] | [place] | [phone] | | [facility] | | [address] | | | - LABORATORY | | | | + + + + + XR Chest AP Portable (10/01/2017 9:17 PM PST) + + | Specimen | + + | | + + + + + | Narrative | Performed At | + + + | XR CHEST AP PORTABLE 10/01/2017 9:15 PM HISTORY: hypoxia. | [facility] | | COMPARISON: CT scans 12/06/2007, 02/28/2007. Findings: Heart size | | | is within normal limits. There is atherosclerosis of the aorta. | | | Mediastinum is unremarkable. Central pulmonary vasculature is normal. | | | Mild patchy airspace disease is in the left lung apex. The right lung | | | is clear. Mild to moderate spondylosis is visualized. IMPRESSION | | | - Mild patchy airspace disease in left lung apex, possibly | | | atelectasis versus pneumonia. Dictated and Signed by: Salvatore | | | MD Enrique Electronically signed: 10/02/2017 1:51 PM | | + + + + + | Procedure Note | + + | Julian, Rad Results In - 10/02/2017 1:54 PM PST XR CHEST AP PORTABLE 10/01/2017 9:15 PM | | | | HISTORY: hypoxia. | | | | COMPARISON: CT scans 12/06/2007, 02/28/2007. | | | | Findings: | | Heart size is within normal limits. There is atherosclerosis of the aorta. | | Mediastinum is unremarkable. Central pulmonary vasculature is normal. Mild | | patchy airspace disease is in the left lung apex. The right lung is clear. Mild | | to moderate spondylosis is visualized. | | | | IMPRESSION - | | Mild patchy airspace disease in left lung apex, possibly atelectasis versus | | pneumonia. | | | | Dictated and Signed by: Salvatore Nunez MD | | Electronically signed: 10/02/2017 1:51 PM | + + + +---------+ + + | Performing | Address | City/State/Zipcode | Phone Number | | Organization | | | | + +---------+ + + | [facility] | | | | + +---------+ + + Troponin I (10/01/2017 9:12 PM PST) + + + + + + | Component | Value | Ref Range | Performed | Pathologist | | | | | At | Signature | + + + + + + | Troponin I | 0.01Comment: Reference | <0.06 ng/mL | [facility] | | | | Ranges:0.00-0.06 = | | [facility] | | | | NORMAL>0.06 = | | MEDICAL | | | | SUSPICIOUS FOR | | CENTER - | | | | MYOCARDIAL DAMAGE NOTE: | | LABORATORY | | | | Values greater than 0.50 | | | | | | ng/mL have been shown | | | | | | to be strongly | | | | | | associated with acute | | | | | | myocardial infarction. | | | | | | The [employer] | | | | | | Cardiology (ACC) | | | | | | recommends a decision | | | | | | limit of 0.06 ng/mL for | | | | | | this assay. Results | | | | | | greater than 0.06 can | | | | | | reflect a pre-infarct | | | | | | acute coronary syndrome, | | | | | | but can also reflect | | | | | | myocardial necrosis or | | | | | | injury that is not due | | | | | | to coronary artery | | | | | | disease. Some of these | | | | | | causes are sepsis, | | | | | | hypocolemia, atrial | | | | | | fibrillation, heart | | | | | | failure, pulmonary | | | | | | embolism, myocarditis, | | | | | | myocardial contusion, | | | | | | and renal failure. The | | | | | | diagnosis of myocardial | | | | | | infarction should be | | | | | | based on a combination | | | | | | of the patient's | | | | | | clinical presentation | | | | | | and the clinical | | | | | | laboratory test results | | | | | | (especially serial | | | | | | troponin levels). | | | | + + + + + + + + | Specimen | + + | Blood | + + + + + + + | Performing | Address | City/State/Zipcode | Phone Number | | Organization | | | | + + + + + | [facility] | [address] | [place], [place] | [phone] | | [facility] | | [address] | | | - LABORATORY | | | | + + + + + Ju AVILA (10/01/2017 9:12 PM PST) + + + + + + | Component | Value | Ref Range | Performed | Pathologist | | | | | At | Signature | + + + + + + | Prothrombin | 13.3 | 11.3 - 13.9 | [facility] | | | Time | | seconds | [facility] | | | | | | MEDICAL | | | | | | CENTER - | | | | | | LABORATORY | | + + + + + + | INR | 1.02Comment: Usual Oral | 0.90 - 1.10 | [...] + + | [facility] | [address] | [place] | [phone] | | [facility] | | [address] | | | - LABORATORY | | | | + + + + + Magnesium (10/01/2017 9:12 PM PST) + +-------+ + + + | Component | Value | Ref Range | Performed | Pathologist | | | | | At | Signature | + +-------+ + + + | Magnesium | 1.8 | 1.8 - 2.5 mg/dL | [facility] | | | | [...] [address] | [place] | [phone] | | [facility] | | [address] | | | - LABORATORY | | | | + + + + + Comprehensive Metabolic Panel (10/01/2017 9:12 PM PST) + + + + + + | Component | Value | Ref Range | Performed | Pathologist | | | | | At | Signature | + + + + + + | Na | 140 | 136 - 149 | [facility] | | | | | mmol/L | [facility] | | | | | MEDICAL | | | | | | CENTER - | | | | | | LABORATORY | | + + + + + + | K | 4.7 | 3.5 - 5.1 | [facility] | | | | | mmol/L | [facility] | | | | | | MEDICAL | | | | | | CENTER - | | | | | | LABORATORY | | + + + + + + | Cl | 111 (H) | 98 - 109 mmol/L | [facility] | | | | | | [facility] | | | | | | MEDICAL | | | | | | CENTER - | | | | | | LABORATORY | | + + + + + + | CO2 | 24 | 24 - 31 mmol/L | [facility] | | | | | | [facility] | | | | | | MEDICAL | | | | | | CENTER - | | | | | | LABORATORY | | + + + + + + | Anion Gap | 5 | 3 - 16 mmol/L | [facility] | | | | | | [facility] | | | | | | MEDICAL | | | | | | CENTER - | | | | | | LABORATORY | | + + + + + + | Glucose | 191 (H) | 70 - 109 mg/dL | [facility] | | | | | | [facility] | | [facility] | | | MEDICAL | | | | | | CENTER - | | | | | | LABORATORY | | + + + + + + | BUN | 25 (H) | 7 - 18 mg/dL | [facility] | | | | | | [facility] | | | | | | MEDICAL | | | | | | CENTER - | | | | | | LABORATORY | | + + + + + + | Creatinine | 3.05 (H) | 0.60 - 1.30 | [facility] | | | | | mg/dL | [facility] | | | | | | MEDICAL | | | | | | CENTER - | | | | | | LABORATORY | | + + + + + + | eGFR if not | 15 (L)Comment: | >=60 | [facility] | | | | GLOMERULAR FILTRATION | mL/min/1.73m2 | [facility] | | | [employer] | RATE,ESTIMATED | | MEDICAL | | | | mL/min/1.81l0Dapa than | | CENTER - | | [...] + + + + | Calcium | 8.5 | 8.3 - 10.5 | [facility] | | | | | mg/dL | [facility] | | | | | | MEDICAL | | | | | | CENTER - | | | | | | LABORATORY | | + + + + + + | Albumin | 2.6 (L) | 3.2 - 5.0 g/dL | [facility] | | | | | | [facility] | | | | | | MEDICAL | | | | | | CENTER - | | | | | | LABORATORY | | + + + + + + | Bilirubin | 0.8 | 0.1 - 1.5 mg/dL | [facility] | | | Total | | | [facility] | | | | | | MEDICAL | | | | | | CENTER - | | | | | | LABORATORY | | + + + + + + | Total | 5.7 (L) | 6.0 - 7.8 g/dL | [facility] | | | Protein | | | [facility] | | | | | | MEDICAL | | | | | | CENTER - | | | | | | LABORATORY | | + + + + + + | AST | 14 | 10 - 42 U/L | [facility] | | | | | | [facility] | | | | | | MEDICAL | | | | | | CENTER - | | | | | | LABORATORY | | + + + + + + | ALT | 10 | 6 - 45 U/L | [facility] | | | | | | [facility] | | | | | | MEDICAL | | | | | | CENTER - | | | | | | LABORATORY | | + + + + + + | Alkaline | 59 | 40 - 110 U/L | [facility] | | | Phosphatase | | | [facility] | | | | | | MEDICAL | | | | | | CENTER - | | | | | | LABORATORY | | + + + + + + | Globulin | 3.1 | 2.1 - 3.8 g/dL | [facility] | | | | | | [facility] | | | | | | MEDICAL | | | | | | CENTER - | | | | | | LABORATORY | | + + + + + + | Albumin/Shereen | 0.8 | 0.8 - 2.0 | [facility] | | | bulin Ratio | | | [facility] | | | | | | MEDICAL | | | | | | CENTER - | | | | | | LABORATORY | | + + + + + + | BUN/Creatin | 8.2 | | [facility] | | | ine Ratio | | | [facility] | | [...] + | [facility] | [address] | [place] | [phone] | | [facility] | | [address] | | | - LABORATORY | | | | + + + + + CBC with Differential (10/01/2017 9:12 PM PST) + + + + + + | Component | Value | Ref Range | Performed | Pathologist | | | | | At | Signature | + + + + + + | WBC | 9.6 | 4.0 - 11.0 K/uL | [facility] | | | | | | [facility] | | | | | | MEDICAL | | | | | | CENTER - | | | | | | LABORATORY | | + + + + + + | RBC | 3.16 (L) | 3.70 - 5.20 | [facility] | | | | | M/uL | [facility] | | | | | | MEDICAL | | | | | | CENTER - | | | | | | LABORATORY | | + + + + + + | Hemoglobin | 9.4 (L) | 11.5 - 16.0 | [facility] | | | | | g/dL | [facility] | | | | | | MEDICAL | | | | | | CENTER - | | | | | | LABORATORY | | + + + + + + | Hematocrit | 28.3 (L) | 34.0 - 47.0 % | [facility] | | | | | | [facility] | | | | | | MEDICAL | | | | | | CENTER - | | | | | | LABORATORY | | + + + + + + | MCV | 89.3 | 83.0 - 101.0 fL | [facility] [...] + + + + | MCHC | 33.2 | 32.0 - 36.0 | [facility] | | | | | g/dL | [facility] | | | | | | MEDICAL | | | | | | CENTER - | | | | | | LABORATORY | | + + + + + + | RDW-CV | 14.4 | <15.0 % | [facility] | | | | | | [facility] | | | | | | MEDICAL | | | | | | CENTER - | | | | | | LABORATORY | | + + + + + + | Platelet | 180 | 140 - 440 K/uL | [facility] | | | Count | | | [facility] | | [facility] | | | MEDICAL | | | | | | CENTER - | | | | | | LABORATORY | | + + + + + + | MPV | 8.3 | fL | [facility] | | | | | | [facility] | | | | | | MEDICAL | | | | | | CENTER - | | | | | | LABORATORY | | + + + + + + | % | 83.1 (H) | 45.0 - 82.0 % | [facility] | | | Neutrophils | | | [facility] | | | | | | MEDICAL | | | | | | CENTER - | | | | | | LABORATORY | | + + + + + + | % | 12.1 (L) | 20.0 - 45.0 % | [facility] | | | Lymphocytes | | | [facility] | | | | | | MEDICAL | | | | | | CENTER - | | | | | | LABORATORY | | + + + + + + | % Monocytes | 3.3 (L) | 4.0 - 12.0 % | [facility] | | | | | | [facility] | | | | | | MEDICAL | | | | | | CENTER - | | | | | | LABORATORY | | + + + + + + | % | 0.9 | 0.0 - 5.0 % | [facility] | | | Eosinophils | | | [facility] | | | | | | MEDICAL | | | | | | CENTER - | | | | | | LABORATORY | | + + + + + + | % Basophils | 0.6 | 0.0 - 1.0 % | [facility] | | | | | | [facility] | | | | | | MEDICAL | | | | | | CENTER - | | | | | | LABORATORY | | + + + + + + | Absolute | 7.90 | 1.80 - 8.50 | [facility] | | | Neutrophils | | K/uL | [facility] | | | | | | MEDICAL | | | | | | CENTER - | | | | | | LABORATORY | | + + + + + + | Absolute | 1.20 | 0.60 - 3.20 | [facility] | | | Lymphocytes | | K/uL | [facility] | | | | | | MEDICAL | | | | | | CENTER - | | | | | | LABORATORY | | + + + + + + | Absolute | 0.30 | 0.00 - 1.00 | [facility] | | | Monocytes | | K/uL | [facility] | | | | | | MEDICAL | | | | | | CENTER - | | | | | | LABORATORY | | + + + + + + | Absolute | 0.10 | 0.00 - 0.40 | [facility] | | | Eosinophils | | K/uL | [facility] | | | | | | MEDICAL | | | | | | CENTER - | | | | | | LABORATORY | | + + + + + + | Absolute | 0.10 | 0.00 - 0.10 | [facility] | | | Basophils | | K/uL | [facility] | [...] ST. | [address] | [place] | [phone] | | [facility] | | [address] | | | - LABORATORY | | | | + + + + + LABS - EXTERNAL SCAN (10/01/2017 12:00 AM PST) + + + | Narrative | Performed At | + + + | Ordered by an | | | unspecified provider. | | + + + documented in this encounter Visit Diagnoses + + | Diagnosis | + + | Hypertensive emergency Unspecified essential hypertension | + + | Chest pain, unspecified type | + + | Leg swelling Swelling of limb | + + | CKD (chronic kidney disease), stage IV (HCC) Chronic kidney disease, Stage IV | | (severe) | + + | Type 2 diabetes mellitus with stage 4 chronic kidney disease, with long-term current | | use of insulin (HCC) | + + | Anemia of chronic renal failure, stage 4 (severe) (HCC) | + + documented in this encounter Administered Medications + +--------+ +--------+------+------+ | Medication Order | MAR | Action | Dose | Rate | Site | | | Action | Date | | | | + +--------+ +--------+------+------+ | acetaminophen (TYLENOL) tablet | Given | 10/02/19 | 650 mg | | | | 650 mg 650 mg, Oral, EVERY 6 | | 18 7:55 | | | | | HOURS PRN, Pain, Fever, | | AM PST | | | | | Headaches, Starting 10/01/17 | | | | | | | at 2021 | | | | | | + +--------+ +--------+------+------+ + +---+ | | | + +---+ | amLODIPine (NORVASC) tablet 10 | | | mg 10 mg, Oral, DAILY, First | | | dose (after last modification) on | | | Dian 10/07/17 at 0900 | | + +---+ | | | + +---+ + +-------+ +------+---+---+ | amLODIPine (NORVASC) tablet 5 | Given | 10/06/19 | 5 mg | | | | mg 5 mg, Oral, 2 TIMES DAILY, | | 18 9:43 | | | | | First dose on [facility] 10/05/17 at 1445 | | AM PST | | | | + +-------+ +------+---+---+ +-------+ +------+---+---+ | Given | 10/05/19 | 5 mg | | | | | 18 8:38 | | | | | | PM PST | | | | +-------+ +------+---+---+ | Given | 10/05/19 | 5 mg | | | | | 18 2:23 | | | | | | PM PST | | | | +-------+ +------+---+---+ +---+---+ | | | +---+---+ + +-------+ +-------+---+---+ | aspirin chewable tablet 81 mg | Given | 10/06/19 | 81 mg | | | | 81 mg, Oral, DAILY, First dose on | | 18 9:43 | | | | | 10/01/17 at 2045 | | AM PST | | | | + +-------+ +-------+---+---+ +-------+ +-------+---+---+ | Given | 10/05/19 | 81 mg | | | | | 18 8:27 | | | | | | AM PST | | | | +-------+ +-------+---+---+ | Given | 10/04/19 | 81 mg | | | | | 18 8:22 | | | | | | AM PST | | | | +-------+ +-------+---+---+ +---+---+ | | | +---+---+ + +-------+ +-------+---+---+ | atorvaSTATin (LIPITOR) tablet | Given | 10/05/19 | 40 mg | | | | 40 mg 40 mg, Oral, NIGHTLY, | | 18 8:37 | | | | | First dose on Wed10/01/17 at 2100 | | PM PST | | | | + +-------+ +-------+---+---+ +-------+ +-------+---+---+ | Given | 10/04/19 | 40 mg | | | | | 18 8:45 | | | | | | PM PST | | | | +-------+ +-------+---+---+ | Given | 10/03/19 | 40 mg | | | | | 18 9:09 | | | | | | PM PST | | | | +-------+ +-------+---+---+ + +---+ | | | + +---+ | bisacodyl (DULCOLAX) | | | suppository 10 mg 10 mg, Rectal, | | | DAILY PRN, Constipation, | | | Starting Wed10/01/17 at 2021, If | | | no BM in prior 48 hours and | | | docusate and Miralax ineffective, | | | | | + +---+ | | | + +---+ | dextrose 50% injection 12.5 g | | | 12.5 g, Intravenous, PRN, Low | | | Blood Sugar, Starting 10/01/17 | | | at 2021 | | + +---+ | | | + +---+ + +-------+ +--------+---+---+ | docusate sodium (COLACE) | Given | 10/06/19 | 100 mg | | | | capsule 100 mg 100 mg, Oral, 2 | | 18 9:43 | | | | | TIMES DAILY, First dose on Wed | | AM PST | | | | | 10/01/17 at 2100, Hold for loose | | | | | | | stools, | | | | | | + +-------+ +--------+---+---+ +-------+ +--------+---+---+ | Given | 10/05/19 | 100 mg | | | | | 18 8:37 | | | | | | PM PST | | | | +-------+ +--------+---+---+ | Given | 10/05/19 | 100 mg | | | | | 18 8:27 | | | | | | AM PST | | | | +-------+ +--------+---+---+ +---+---+ | | | +---+---+ + +-------+ +-------+---+---+ | DULoxetine (CYMBALTA) DR | Given | 10/06/19 | 30 mg | | | | capsule 30 mg 30 mg, Oral, | | 18 9:43 | | | | | DAILY, First dose on 10/02/17 | | AM PST | | | | | at 0900, Do not open capsule., | | | | | | + +-------+ +-------+---+---+ +-------+ +-------+---+---+ | Given | 10/05/19 | 30 mg | | | | | 18 8:27 | | | | | | AM PST | | | | +-------+ +-------+---+---+ | Given | 10/04/19 | 30 mg | | | | | 18 8:21 | | | | | | AM PST | | | | +-------+ +-------+---+---+ +---+---+ | | | +---+---+ + +-------+ +-------+---+---+ | furosemide (LASIX) injection 40 | Given | 10/03/19 | 40 mg | | | | mg 40 mg, Intravenous, 2 TIMES | | 18 8:09 | | | | | DAILY 0800 & 1600, First dose | | AM PST | | | | | (after last modification) on Sat | | | | | | | 10/02/17 at 0800 | | | | | | + +-------+ +-------+---+---+ +-------+ +-------+---+---+ | Given | 10/02/19 | 40 mg | | | | | 18 5:32 | | | | | | PM PST | | | | +-------+ +-------+---+---+ | Given | 10/02/19 | 40 mg | | | | | 18 7:55 | | | | | | AM PST | | | | +-------+ +-------+---+---+ +---+---+ | | | +---+---+ + +-------+ +-------+---+---+ | furosemide (LASIX) tablet 40 mg | Given | 01/24/20 | 40 mg | | | | 40 mg, Oral, 2 TIMES DAILY 0800 | | 18 9:43 | | | | | & 1600, First dose on Sun | | AM PST | | | | | 10/03/17 at 1600 | | | | | | + +-------+ +-------+---+---+ +-------+ +-------+---+---+ | Given | 10/05/19 | 40 mg | | | | | 18 5:28 | | | | | | PM PST | | | | +-------+ +-------+---+---+ | Given | 10/05/19 | 40 mg | | | | | 18 8:27 | | | | | | AM PST | | | | +-------+ +-------+---+---+ + +---+ | | | + +---+ | furosemide (LASIX) tablet 80 mg | | | 80 mg, Oral, DAILY, First dose | | | (after last modification) on Dian | | | 10/07/17 at 0900 | | + +---+ | | | + +---+ + +-------+ +--------+---+---+ | gabapentin (NEURONTIN) capsule | Given | 10/06/19 | 200 mg | | | | 200 mg 200 mg, Oral, 2 TIMES | | 18 9:43 | | | | | DAILY, First dose on Wed10/01/17 | | AM PST | | | | | at 2100 | | | | | | + +-------+ +--------+---+---+ +-------+ +--------+---+---+ | Given | 10/05/19 | 200 mg | | | | | 18 8:37 | | | | | | PM PST | | | | +-------+ +--------+---+---+ | Given | 10/05/19 | 200 mg | | | | | 18 8:27 | | | | | | AM PST | | | | +-------+ +--------+---+---+ +---+---+ | | | +---+---+ + +-------+ +--------+---+ + | heparin 5,000 units/mL | Given | 10/06/19 | 5,000 | | Abdomen- | | injection 5,000 Units 5,000 | | 18 9:42 | Units | | RUQ | | Units, Subcutaneous, EVERY 12 | | AM PST | | | | | HOURS (2 times per day), First | | | | | | | dose on Wed10/01/17 at 2100 | | | | | | + +-------+ +--------+---+ + +-------+ +--------+---+ + | Given | 10/05/19 | 5,000 | | Abdomen- | | | 18 8:46 | Units | | LLQ | | | PM PST | | | | +-------+ +--------+---+ + | Given | 10/05/19 | 5,000 | | Abdomen- | | | 18 8:28 | Units | | LUQ | | | AM PST | | | | +-------+ +--------+---+ + +---+---+ | | | +---+---+ + +-------+ + +---+---+ | HYDROcodone-acetaminophen | Given | 10/04/19 | 1 tablet | | | | (NORCO) 5-325 mg per tablet 1-2 | | 18 4:58 | | | | | tablet 1-2 tablet, Oral, EVERY 4 | | PM PST | | | | | HOURS PRN, Moderate Pain, | | | | | | | Starting 10/01/17 at 2020 | | | | | | + +-------+ + +---+---+ +-------+ + +---+---+ | Given | 10/02/19 | 2 | | | | | 18 9:37 | tablets | | | | | AM PST | | | | +-------+ + +---+---+ | Given | 10/01/19 | 1 tablet | | | | | 18 9:57 | | | | | | PM PST | | | | +-------+ + +---+---+ +---+---+ | | | +---+---+ + +-------+ + +---+ + | insulin glargine (LANTUS | Given | 10/05/19 | 10 Units | | Abdomen- | | SOLOSTAR) 100 units/mL injection | | 18 8:40 | | | RLQ | | (pen) 10 Units 10 Units, | | PM PST | | | | | Subcutaneous, NIGHTLY, First dose | | | | | | | on 10/01/17 at 2100, For | | | | | | | subcutaneous use only. Basal | | | | | | | (long acting) insulin., | | | | | | + +-------+ + +---+ + +-------+ + +---+ + | Given | 10/04/19 | 10 Units | | Arm-Righ | | | 18 8:53 | | | t Upper | | | PM PST | | | | +-------+ + +---+ + | Given | 10/03/19 | 10 Units | | Abdomen- | | | 18 9:00 | | | LLQ | | | PM PST | | | | +-------+ + +---+ + +---+---+ | | | +---+---+ + +-------+ +---------+---+ + | insulin lispro (humaLOG | Given | 10/05/19 | 3 Units | | Arm-Left | | KWIKPEN) 100 units/mL injection | | 18 2:23 | | | Upper | | (pen) 0-6 Units 0-6 Units, | | PM PST | | | | | Subcutaneous, 4 TIMES DAILY WITH | | | | | | | MEALS & NIGHTLY, First dose on | | | | | | | Wed10/01/17 at 2100, CORRECTION | | | | | | | SCALE: Blood Glucose (BG) < | | | | | | | 150: None BG | | | | | | | 150-200: DAY: 1 units. NIGHT: 0 | | | | | | | units BG 201-250: DAY: 2 units. | | | | | | | NIGHT: 1 units BG 251-300: | | | | | | | DAY: 3 units. NIGHT: 2 units | | | | | | | BG 301-350: DAY: 4 units. NIGHT: | | | | | | | 3 units BG 351-400: DAY: 5 | | | | | | | units. NIGHT: 4 units BG > | | | | | | | 400 : DAY: 6 units. NIGHT: 5 | | | | | | | units | | | | | | | AND CALL PROVIDER Use DAY DOSE | | | | | | | for doses scheduled: AC, | | | | | | | NPO, Daytime [id number] Use NIGHT | | | | | | | DOSE for doses scheduled: | | | | | | | HS, 3AM, Nighttime [id number], | | | | | | + +-------+ +---------+---+ + +-------+ +---------+---+ + | Given | 10/04/19 | 1 Units | | Arm-Left | | | 18 8:45 | | | Upper | | | PM PST | | | | +-------+ +---------+---+ + | Given | 10/04/19 | 2 Units | | Abdomen- | | | 18 5:59 | | | RLQ | | | PM PST | | | | +-------+ +---------+---+ + +---+---+ | | | +---+---+ + +-------+ +--------+---+---+ | labetalol (NORMODYNE) tablet | Given | 10/05/19 | 100 mg | | | | 100 mg 100 mg, Oral, 2 TIMES | | 18 8:27 | | | | | DAILY, First dose on 10/04/17 | | AM PST | | | | | at 1545 | | | | | | + +-------+ +--------+---+---+ +-------+ +--------+---+---+ | Given | 10/04/19 | 100 mg | | | | | 18 4:58 | | | | | | PM PST | | | | +-------+ +--------+---+---+ +---+---+ | | | +---+---+ + +-------+ +--------+---+---+ | labetalol (NORMODYNE) tablet | Given | 10/06/19 | 200 mg | | | | 200 mg 200 mg, Oral, 2 TIMES | | 18 9:43 | | | | | DAILY, First dose (after last | | AM PST | | | | | modification) on e 10/05/17 at | | | | | | | 2100 | | | | | | + +-------+ +--------+---+---+ +-------+ +--------+---+---+ | Given | 10/05/19 | 200 mg | | | | | 18 8:38 | | | | | | PM PST | | | | +-------+ +--------+---+---+ +---+---+ | | | +---+---+ + +-------+ +-------+---+---+ | labetalol (TRANDATE) 5 mg/mL | Given | 10/04/19 | 10 mg | | | | injection 10-20 mg 10-20 mg, | | 18 10:00 | | | | | Intravenous, EVERY 1 HOUR PRN, | | AM PST | | | | | SBP above 200 or DBP above 100, | | | | | | | Starting 10/02/17 at 0924 | | | | | | + +-------+ +-------+---+---+ +---+---+ | | | +---+---+ + +-------+ +--------+---+---+ | levothyroxine (SYNTHROID) | Given | 10/06/19 | 75 mcg | | | | tablet 75 mcg 75 mcg, Oral, | | 18 6:42 | | | | | DAILY BEFORE BREAKFAST, First | | AM PST | | | | | dose on 10/02/17 at 0730, Give | | | | | | | before breakfast., | | | | | | + +-------+ +--------+---+---+ +-------+ +--------+---+---+ | Given | 10/05/19 | 75 mcg | | | | | 18 6:50 | | | | | | AM PST | | | | +-------+ +--------+---+---+ | Given | 10/04/19 | 75 mcg | | | | | 18 6:37 | | | | | | AM PST | | | | +-------+ +--------+---+---+ + +---+ | | | + +---+ | losartan (COZAAR) tablet 25 mg | | | 25 mg, Oral, DAILY, First dose | | | on [facility] 10/07/17 at 0900 | | + +---+ | | | + +---+ + +-------+ +-------+---+---+ | losartan (COZAAR) tablet 50 mg | Given | 10/05/19 | 50 mg | | | | 50 mg, Oral, 2 TIMES DAILY, | | 18 8:27 | | | | | First dose on [place] 10/03/17 at 0930 | | AM PST | | | | + +-------+ +-------+---+---+ +-------+ +-------+---+---+ | Given | 10/04/19 | 50 mg | | | | | 18 8:45 | | | | | | PM PST | | | | +-------+ +-------+---+---+ | Given | 10/04/19 | 50 mg | | | | | 18 8:21 | | | | | | AM PST | | | | +-------+ +-------+---+---+ +---+---+ | | | +---+---+ + +-------+ +------+---+---+ | ondansetron (ZOFRAN) injection | Given | 10/03/19 | 4 mg | | | | 4 mg 4 mg, Intravenous, EVERY 6 | | 18 5:05 | | | | | HOURS PRN, Nausea, Vomiting, | | AM PST | | | | | Starting 10/02/17 at 1225 | | | | | | + +-------+ +------+---+---+ +-------+ +------+---+---+ | Given | 10/02/19 | 4 mg | | | | | 18 6:42 | | | | | | PM PST | | | | +-------+ +------+---+---+ | Given | 10/02/19 | 4 mg | | | | | 18 12:32 | | | | | | PM PST | | | | +-------+ +------+---+---+ +---+---+ | | | +---+---+ + +-------+ +-------+---+---+ | pantoprazole (PROTONIX) DR | Given | 10/06/19 | 40 mg | | | | tablet 40 mg 40 mg, Oral, DAILY | | 18 6:42 | | | | | BEFORE BREAKFAST, First dose on | | AM PST | | | | | 10/02/17 at 0730, Do not cut | | | | | | | or crush., | | | | | | + +-------+ +-------+---+---+ +-------+ +-------+---+---+ | Given | 10/05/19 | 40 mg | | | | | 18 6:50 | | | | | | AM PST | | | | +-------+ +-------+---+---+ | Given | 10/04/19 | 40 mg | | | | | 18 6:37 | | | | | | AM PST | | | | +-------+ +-------+---+---+ + +---+ | | | + +---+ | polyethylene glycol (MIRALAX) | | | powder 17 g 17 g, Oral, DAILY | | | PRN, Constipation, Starting Fri | | | 10/01/17 at 2021, If docusate | | | ineffective, give Miralax daily | | | until BM, then PRN (start if no | | | BM on day 2). Mix with 8 oz. | | | water., | | + +---+ | | | + +---+ + +-------+ +--------+---+---+ | potassium chloride (K-DUR) ER | Given | 10/06/19 | 40 mEq | | | | tablet 40 mEq 40 mEq, Oral, | | 18 11:34 | | | | | ONCE, 10/06/17 at 1030, For 1 | | AM PST | | | | | dose, KCL 40 meq po once, may | | | | | | | substitute oral liquid if better | | | | | | | tolerated., | | | | | | + +-------+ +--------+---+---+ +---+---+ | | | +---+---+ documented in this encounter
--- OUTSIDE RECORDS SUMMARY | ~2019-09-08 | XMS | Encounter Summary ---
Demographics + + + | Address | [address] | | | [place] [address] | + + + | Home Phone | | + + + | Preferred Language | Unknown | + + + | Marital Status | Single | + + + | Scientologist Affiliation | Unknown | + + + | Race | Unknown | + + + | Ethnic Group | Unknown | + + + Author + + + | Author | [facility] | | | and [place] | + + + | Organization | [facility] | | | and [place] | + + + | Address | Unknown | + + + | Phone | Unavailable | + + + Support + + + + + | Name | Relationship | Address | Phone | + + + + + | India Tilley | ECON | [address] | | | | | [place], [place] | | | | | [address] | | + + + + + | Yina La | ECON | Unknown | | + + + + + | Yina Peterson | ECON | Unknown | | + + + + + | Leatha Casillas | ECON | Unknown | | + + + + + Care Team Providers + +------+ + | Care Cooker Process Cheese Name | Role | Phone | + +------+ + PCP | Unavailable | + +------+ + Encounter Details +--------+ + + + + | Date | Type | Department | Care Team | Description | +--------+ + + + + | 03/11/ | Abstract | [facility] [place] | Kelsea, | | | 2017 | | NEPHROLOGY [address] | [address] | | | | | [address] | [address], [place] | | | | | [place] | [address] [place] | | | | | [address] | [address] | | | | | [phone] | | | +--------+ + + + [...] + documented as of this encounter Progress Celeste Browning RN - 03/11/2017 2:10 PM [facility] for consult: need to fax to [facility] closer t o appt. RU documented in this encounter Plan of Treatment Not on filedocumented as of this encounter Procedures + +--------+ + + + | Procedure Name | Priori | Date/Time | Associated Diagnosis | Comments | | | ty | | | | + +--------+ + + + | EXTERNAL LAB: BUN | Routin | 03/09/2017 | | Results for this | | | e | | | procedure are in the | | | | | | results section. | + +--------+ + + + | EXTERNAL LAB: | Routin | 03/09/2017 | | Results for this | | GLUCOSE | e | | | procedure are in the | | | | | | results section. | + +--------+ + + + | EXTERNAL LAB: | Routin | 03/09/2017 | | Results for this | | CALCIUM | e | | | procedure are in the | | | | | | results section. | + +--------+ + + + | EXTERNAL LAB: CARBON | Routin | 03/09/2017 | | Results for this | | DIOXIDE | e | | | procedure are in the | | | | | | results section. | + +--------+ + + + | EXTERNAL LAB: | Routin | 03/09/2017 | | Results for this | | CHLORIDE | e | | | procedure are in the | | | | | | results section. | + +--------+ + + + | EXTERNAL LAB: | Routin | 03/09/2017 | | Results for this | | POTASSIUM | e | | | procedure are in the | | | | | | results section. | + +--------+ + + + | EXTERNAL LAB: SODIUM | Routin | 03/09/2017 | | Results for this | | | e | | | procedure are in the | | | | | | results section. | + +--------+ + + + | EXTERNAL LAB: CBC | Routin | 03/09/2017 | | Results for this | | | e | | | procedure are in the | | | | | | results section. | + +--------+ + + + | EXTERNAL LAB: EGFR | Routin | 03/09/2017 | | Results for this | | | e | | | procedure are in the | | | | | | results section. | + +--------+ + + + | EXTERNAL LAB: | Routin | 03/09/2017 | | Results for this | | CREATININE | e | | | procedure are in the | | | | | | results section. | + +--------+ + + + | EXTERNAL LAB: BUN | Routin | 10/10/2015 | | Results for this | | | e | | | procedure are in the | | | | | | results section. | + +--------+ + + + | EXTERNAL LAB: | Routin | 10/10/2015 | | Results for this | | GLUCOSE | e | | | procedure are in the | | | | | | results section. | + +--------+ + + + | EXTERNAL LAB: | Routin | 10/10/2015 | | Results for this | | CALCIUM | e | | | procedure are in the | | | | | | results section. | + +--------+ + + + | EXTERNAL LAB: CARBON | Routin | 10/10/2015 | | Results for this | | DIOXIDE | e | | | procedure are in the | | | | | | results section. | + +--------+ + + + | EXTERNAL LAB: | Routin | 10/10/2015 | | Results for this | | CHLORIDE | e | | | procedure are in the | | | | | | results section. | + +--------+ + + + | EXTERNAL LAB: | Routin | 10/10/2015 | | Results for this | | POTASSIUM | e | | | procedure are in the | | | | | | results section. | + +--------+ + + + | EXTERNAL LAB: SODIUM | Routin | 10/10/2015 | | Results for this | | | e | | | procedure are in the | | | | | | results section. | + +--------+ + + + | EXTERNAL LAB: CBC | Routin | 10/10/2015 | | Results for this | | | e | | | procedure are in the | | | | | | results section. | + +--------+ + + + | EXTERNAL LAB: EGFR | Routin | 10/10/2015 | | Results for this | | | e | | | procedure are in the | | | | | | results section. | + +--------+ + + + | EXTERNAL LAB: | Routin | 10/10/2015 | | Results for this | | CREATININE | e | | | procedure are in the | | | | | | results section. | + +--------+ + + + documented in this encounter Results External Lab: BUN (03/09/2017) + +-------+ + + + | Component | Value | Ref Range | Performed | Pathologist | | | | | At | Signature | + +-------+ + + + | BUN, | 22 | | | | | External | | | | | + +-------+ + + + External Lab: Glucose (03/09/2017) + +-------+ + + + | Component | Value | Ref Range | Performed | Pathologist | | | | | At | Signature | + +-------+ + + + | Glucose, | 289 | | | | | External | | | | | + +-------+ + + + External Lab: Calcium (03/09/2017) + +-------+ + + + | Component | Value | Ref Range | Performed | Pathologist | | | | | At | Signature | + +-------+ + + + | Calcium, | 8.9 | | | | | External | | | | | + +-------+ + + + External Lab: Carbon Dioxide (03/09/2017) + +-------+ + + + | Component | Value | Ref Range | Performed | Pathologist | | | | | At | Signature | + +-------+ + + + | Carbon | 22 | | | | | Dioxide, | | | | | | External | | | | | + +-------+ + + + External Lab: Chloride (03/09/2017) + +-------+ + + + | Component | Value | Ref Range | Performed | Pathologist | | | | | At | Signature | + +-------+ + + + | Chloride, | 109 | | | | | External | | | | | + +-------+ + + + External Lab: Potassium (03/09/2017) + +-------+ + + + | Component | Value | Ref Range | Performed | Pathologist | | | | | At | Signature | + +-------+ + + + | Potassium, | 4.5 | | | | | External | | | | | + +-------+ + + + External Lab: Sodium (03/09/2017) + +-------+ + + + | Component | Value | Ref Range | Performed | Pathologist | | | | | At | Signature | + +-------+ + + + | Sodium, | 137 | | | | | External | | | | | + +-------+ + + + External Lab: CBC (03/09/2017) + +-------+ + + + | Component | Value | Ref Range | Performed | Pathologist | | | | | At | Signature | + +-------+ + + + | WBC, | 5.2 | | | | | External | | | | | + +-------+ + + + | HGB, | 11.1 | | | | | External | | | | | + +-------+ + + + | HCT, | 32.1 | | | | | External | | | | | + +-------+ + + + | PLT, | 181 | | | | | External | | | | | + +-------+ + + + | RBC, | 3.6 | | | | | External | | | | | + +-------+ + + + | MCV, | 89 | | | | | External | | | | | + +-------+ + + + | RDW, | 13.3 | | | | | External | | | | | + +-------+ + + + External Lab: eGFR (03/09/2017) + +-------+ + + + | Component | Value | Ref Range | Performed | Pathologist | | | | | At | Signature | + +-------+ + + + | eGFR, | 27 | | | | | External | | | | | + +-------+ + + + + + | Specimen | + + | Blood | + + External Lab: Creatinine (03/09/2017) + +-------+ + + + | Component | Value | Ref Range | Performed | Pathologist | | | | | At | Signature | + +-------+ + + + | Creatinine, | 1.82 | | | | | External | | | | | + +-------+ + + + + + | Specimen | + + | Blood | + + External Lab: BUN (10/10/2015) + +-------+ + + + | Component | Value | Ref Range | Performed | Pathologist | | | | | At | Signature | + +-------+ + + + | BUN, | 19 | | | | | External | | | | | + +-------+ + + + External Lab: Glucose (10/10/2015) + +-------+ + + + | Component | Value | Ref Range | Performed | Pathologist | | | | | At | Signature | + +-------+ + + + | Glucose, | 274 | | | | | External | | | | | + +-------+ + + + External Lab: Calcium (10/10/2015) + +-------+ + + + | Component | Value | Ref Range | Performed | Pathologist | | | | | At | Signature | + +-------+ + + + | Calcium, | 8.7 | | | | | External | | | | | + +-------+ + + + External Lab: Carbon Dioxide (10/10/2015) + +-------+ + + + | Component | Value | Ref Range | Performed | Pathologist | | | | | At | Signature | + +-------+ + + + | Carbon | 23 | | | | | Dioxide, | | | | | | External | | | | | + +-------+ + + + External Lab: Chloride (10/10/2015) + +-------+ + + + | Component | Value | Ref Range | Performed | Pathologist | | | | | At | Signature | + +-------+ + + + | Chloride, | 104 | | | | | External | | | | | + +-------+ + + + External Lab: Potassium (10/10/2015) + +-------+ + + + | Component | Value | Ref Range | Performed | Pathologist | | | | | At | Signature | + +-------+ + + + | Potassium, | 3.7 | | | | | External | | | | | + +-------+ + + + External Lab: Sodium (10/10/2015) + +-------+ + + + | Component | Value | Ref Range | Performed | Pathologist | | | | | At | Signature | + +-------+ + + + | Sodium, | 133 | | | | | External | | | | | + +-------+ + + + External Lab: CBC (10/10/2015) + +-------+ + + + | Component | Value | Ref Range | Performed | Pathologist | | | | | At | Signature | + +-------+ + + + | WBC, | 8.9 | | | | | External | | | | | + +-------+ + + + | HGB, | 12.1 | | | | | External | | | | | + +-------+ + + + | HCT, | 36.4 | | | | | External | | | | | + +-------+ + + + | PLT, | 123 | | | | | External | | | | | + +-------+ + + + | RBC, | 4.12 | | | | | External | | | | | + +-------+ + + + | MCV, | 88 | | | | | External | | | | | + +-------+ + + + | RDW, | 12.2 | | | | | External | | | | | + +-------+ + + + External Lab: eGFR (10/10/2015) + +-------+ + + + | Component | Value | Ref Range | Performed | Pathologist | | | | | At | Signature | + +-------+ + + + | eGFR, | 40 | | | | | External | | | | | + +-------+ + + + + + | Specimen | + + | Blood | + + External Lab: Creatinine (10/10/2015) + +-------+ + + + | Component | Value | Ref Range | Performed | Pathologist | | | | | At | Signature | + +-------+ + + + | Creatinine, | 1.33 | | | | | External | | | | | + +-------+ + + + + + | Specimen | + + | Blood | + + documented in this encounter Visit Diagnoses Not on filedocumented in this encounter"
--- OUTSIDE RECORDS SUMMARY | ~2019-09-08 | XMS | Encounter Summary ---
Demographics + + + | Address | [address] | | | [place] [address] | + + + | Home Phone | | + + + | Preferred Language | Unknown | + + + | Marital Status | Single | + + + | Anabaptism Affiliation | Unknown | + + + | Race | Unknown | + + + | Ethnic Group | Unknown | + + + Author + + + | Author | [facility] | | | and [place] | + + + | Organization | [facility] | | | and [place] | + + + | Address | Unknown | + + + | Phone | Unavailable | + + + Support + + + + + | Name | Relationship | Address | Phone | + + + + + | India Tilley | ECON | [address] | | | | | [place], [place] | | | | | [address] | | + + + + + | Yina La | ECON | Unknown | | + + + + + | Yina Peterson | ECON | Unknown | | + + + + + | Leatha Casillas | ECON | Unknown | | + + + + + Care Team Providers + +------+ + | Care Pre Sales Technical Engineer Name | Role | Phone | + +------+ + PCP | Unavailable | + +------+ + Reason for Visit + + + | Reason | Comments | + + + | Medication Refill | | + + + | Medication Refill | | + + + Encounter Details +--------+--------+ + + + | Date | Type | Department | Care Team | Description | +--------+--------+ + + + | 12/19/ | Refill | [facility] | Scott Koroma, | Medication Refill; | | 2019 | | ORTHOPEDIC SURGERY | MD Nash SEPULVEDA | Medication Refill | | | | [address] | [place] | | | | | [place] | [address] | | | | | [address] | | | | | | [phone] | | | +--------+--------+ + + + [...]
--- OUTSIDE RECORDS SUMMARY | ~2019-09-08 | XMS | Encounter Summary ---
Demographics + + + | Address | [address] | | | [place] [address] | + + + | Home Phone | | + + + | Preferred Language | Unknown | + + + | Marital Status | Single | + + + | Holiness Affiliation | Unknown | + + + | Race | Unknown | + + + | Ethnic Group | Unknown | + + + Author + + + | Author | [facility] | | | and [place] | + + + | Organization | [facility] | | | and [place] | + + + | Address | Unknown | + + + | Phone | Unavailable | + + + Support + + + + + | Name | Relationship | Address | Phone | + + + + + | India Tilley | ECON | [address] | | | | | [place], [place] | | | | | [address] | | + + + + + | Yina La | ECON | Unknown | | + + + + + | Yina Peterson | ECON | Unknown | | + + + + + | Leatha Casillas | ECON | Unknown | | + + + + + Care Team Providers + +------+ + | Care Customs Consultant Name | Role | Phone | [...] | Surgery | kidney | DO [address] | , [address] | | | | | disease, | [place], [place] | [address] | | | | | stage V | [address] | [place], | | | | | ([facility]) | [place], [place] | [place] [address] | | | | | | [address] | Phone: | | | | | | Phone: | [phone] | | | | | | [phone] | Fax: | | | | | | Fax: | [phone] | | | | | | [phone] | | +--------+ + + + + + Encounter Details +--------+ + + + + | Date | Type | Department | Care Team | Description | +--------+ + + + + | 10/06/ | Orders Only | [facility] | Gopi Muñoz | Chronic kidney | | 2018 | | NEPHROLOGY [address] | M, DO [address] | disease, stage V | | | | [address] | [place], [place] [address] | ([facility]) (Primary Dx) | | | | [place] | [place] | | | | | [address] | [address] | | | | | [phone] | | | +--------+ + + + [...] | | | Referral | | | ([facility]) | | + + +--------+ + + [...]
--- OUTSIDE RECORDS SUMMARY | ~2019-09-08 | XMS | Encounter Summary ---
Demographics + + + | Address | [address] | | | [place] [address] | + + + | Home Phone | | + + + | Preferred Language | Unknown | + + + | Marital Status | Single | + + + | Islam Affiliation | Unknown | + + + | Race | Unknown | + + + | Ethnic Group | Unknown | + + + Author + + + | Author | [facility] | | | and [place] | + + + | Organization | [facility] | | | and [place] | + + + | Address | Unknown | + + + | Phone | Unavailable | + + + Support + + + + + | Name | Relationship | Address | Phone | + + + + + | India Tilley | ECON | [address] | | | | | [place], [place] | | | | | [address] | | + + + + + | Yina La | ECON | Unknown | | + + + + + | Yina Peterson | ECON | Unknown | | + + + + + | Leatha Casillas | ECON | Unknown | | + + + + + Care Team Providers + +------+ + | Care Returned Item Clerk Name | Role | Phone | + [...] | | | | | | | Osteomyeliti | | | | | | | s (HCC) | | | +--------+--------+ + + + + Encounter Details +--------+---------+ + + + | Date | Type | Department | Care Team | Description | +--------+---------+ + + + | 03/28/ | Surgery | [facility] AD[facility] AGUSTO | Jose Jiménez, | TUNNEL PICC LINE | | 2019 | | [facility] | MD [address] | PLACEMENT-6fr 22cm | | | | INTRA OP [address] | [address] | BARD Power Line | | | | [address] [place] | [place] [address] | | | | | [address] | [phone] | | | | | [phone] | | | +--------+---------+ + + + [...] + + + | Blood Pressure | 177/73 | 03/31/2019 12:14 PM | | | | | PDT | | + + + + + | Pulse | 75 | 03/31/2019 12:14 PM | | | | | PDT | | + + + + + | Temperature | 35.9 C (96.6 F) | 03/31/2019 12:14 PM | | | | | PDT | | + + + + + | Respiratory Rate | 16 | 03/31/2019 12:14 PM | | | | | PDT | | + + + + + | Oxygen Saturation | 96% | 03/31/2019 12:14 PM | | | | | PDT | | + + + + + | Inhaled Oxygen | - | - | | | Concentration | | | | + + + + + | Weight | 63.6 kg (140 lb 3.4 | 03/31/2019 12:14 PM | | | | oz) | PDT | | + + + + + | Height | 172.7 cm (5' 8") | 03/24/2019 11:05 AM | | | | | PDT | | + + + + + | Body Mass Index | 21.32 | 03/24/2019 11:05 AM | | | | | PDT [...] documented as of this encounter Discharge Summaries Michelle Lopez DO - 03/31/2019 11:40 AM PDT Patient: Estefani Tilley Date of : 1945 PCP: Francisca Womack PA-C Admit Date: 03/24/2019 Discharge Date: 03/31/2019 Date of Service: 03/31/2019 Issues Requiring Follow Up after Discharge: -Completion of IV antibiotics x 6 weeks through 05/04 -Weekly CBC, CMP, CRP -Will need PICC removal after completion of IV abx Follow Up Appointments: [facility] [address] [facility] [address] [facility] [address] [place] [id number] [facility] [address] [facility] [id number] Discharge Disposition: Home with Home Health Consultants This Admission: ID, Nephrology Hospital Course: 73-year-old female with history of ESRD on hemodialysis, hypertension, type 2 diabetes, hyp othyroidism, chronic anemia, hyperlipidemia with a history of stroke transferred from [facility] [place] for evaluation of T11-T12 lesion noted on MRI concerning for osteomyeliti s. Infectious disease consulted. She underwent CT guided aspiration from her thoracic spine on 03/24, Gram stain and bacterial cultures negative. AFP and fungal cultures preliminarily negative, but finalization still pending. ID is following. Infectious parameters improving some, with CRP down to 0.8 03/29. Patient started on empiric vancomycin and cefepime 03/24 w ith plans to complete 6 weeks of IV antibiotics (likely through 05/04), if all cultures remai n NGTD. Tunneled PICC was placed 03/28. She is medically ready for d/c at this point. She initially had planned to go to SNF ([facility] in [place], [place] - of which has accepted her and is able to admit on 04/01), however , as of 03/30 afternoon, she decided she would like to d/c to home with home IV antibiotics a nd IV vanco with dialysis, if possible. She has a sister whom is a nurse and feels comforta ble that she could help with administration of IV abx if needed. She will get IV cefepime d aily at home and will get IV vancomycin M/W/F on dialysis days after dialysis Osteomyelitis/Discitis of T11, [id number] -MRI spine 03/23/19: "mild paravertebral soft tissue thickening and enhancement, no fluid si gnal throughout the disc which would be atypical for osteo/discitis, which would be atypical strictly for degenerative related changes." -Afebrile, improved WBC count, improved CRP down to 0.8 on 03/29, from 1.5 on 03/25 -S/p aspiration T11/T12 spine by IR on 03/24, Gram stain and bacterial cultures negative -Fungal stains prelim negative, finalization of fungal cultures still pending -Blood cultures x 2 negative -Fistula site appears clean, not erythematous, no e/o infection -TTE negative for e/o endocarditis -Infectious disease consulting -Continue vancomycin and cefepime - plan for 6 week course of IV abx - through 05/04 -Will need weekly CBC, CMP and CRP while on antibiotic therapy -Tunneled right picc placed 03/28 -Continue probiotic -Pain controlled with oxycodone and home gabapentin Hypertension BP improved -Continue home medications: labetalol 200 mg BID, losartan 100 mg daily -Continue hydralazine 25 mg BID (added this admission) -Increase home nifedipine from 60 mg daily up to 90 mg daily 03/29 with improved BP control -Prn hydralazine added -Monitor blood pressure Diabetes -Blood sugar stable 100-150s -No medication therapy -Continue insulin sliding scale -Continue 90 g CHO per meal ESRD on hemodialysis -Nephrology consulted, help appreciated -Continue dialysis and management per nephrology -Has RUE fistula -Chronic dialysis patient - has OP clinic in [place] already Macrocytic anemia likely secondary to-likely anemia of chronic disease No concern for bleeding Epogen per nephrology B12 and folic acid within normal Continue to monitor hemoglobin Hypothyroidism Home levothyroxine Discharge Diagnoses: Active Hospital Problems Diagnosis probable Discitis of thoracic region ESRD (end stage renal disease) on dialysis DM (diabetes mellitus), type 2 Macrocytic anemia Essential hypertension Hyperlipidemia DJD (degenerative joint disease) Resolved Hospital Problems No resolved problems to display. Discharge Exam: Temp: [35.9 C (96.6 F)-36.7 C (98.1 F)] 36.7 C (98.1 F) Pulse: [69-81] 79 Resp: [16] 16 BP: (135-172)/(65-83) 172/80 SpO2: 96 % on room air Physical Exam Constitutional: She is oriented to person, place, and time. She appears well-developed and well-nourished. HENT: Head: Normocephalic and atraumatic. Mouth/Throat: No oropharyngeal exudate. Eyes: Pupils are equal, round, and reactive to light. EOM are normal. Cardiovascular: Normal rate, regular rhythm and normal heart sounds. Pulmonary/Chest: Effort normal and breath sounds normal. No respiratory distress. Abdominal: Soft. Bowel sounds are normal. She exhibits no distension. There is no tendernes s. There is no guarding. Musculoskeletal: Normal range of motion. She exhibits no edema. Neurological: She is alert and oriented to person, place, and time. Skin: Skin is warm and dry. Capillary refill takes less than 2 seconds. No rash noted. No e rythema. Psychiatric: She has a normal mood and affect. Her behavior is normal. Thought content norm al. Discharge Medications: Discharge Medications New Medications Details calcium acetate 667 mg capsule Take 1 capsule by mouth 3 times daily (with meals). aka: PHOSLO cefepime (MAXIPIME) 1 g in sodium chloride 0.9% 50 mL IVPB Inject 1 g into the vein every 24 hours for 33 days. Indications: Infection of Bone and Arturo ne Marrow, Sepsis of Unknown Etiology Start: 04/01/2019 gabapentin 100 mg capsule Take 1 capsule by mouth Daily. aka: NEURONTIN gabapentin 300 mg capsule Take 1 capsule by mouth nightly. aka: NEURONTIN hydrALAZINE 25 mg tablet Take 1 tablet by mouth 2 times daily. aka: APRESOLINE NIFEdipine 90 mg ER tablet Take 1 tablet by mouth Daily. aka: PROCARDIA XL oxyCODONE 5 mg tablet Take 1 tablet by mouth every 4 hours as needed for Pain. aka: ROXICODONE probiotic capsule Take 1 capsule by mouth 2 times daily for 34 days. vancomycin in sodium chloride 0.9% 100 mL IVPB 500 mg IV on M// after dialysis, through 05/03 Indications: Infection of Bone and Bone M arrow Unchanged Medications Details albuterol 90 mcg/puff inhaler [...] tablet Take 1 tablet by mouth Daily. Cholecalciferol 4000 units Tabs Take 4,000 Units by mouth Daily. epoetin karthik 10,000 units/mL injection Inject 4,000 Units under the skin Three times a week. aka: EPOGEN, PROCRIT furosemide 80 mg tablet Take 1 tablet by mouth Daily. aka: LASIX HECTOROL 1 MCG Caps Generic drug: doxercalciferol Take 0.5 mg by mouth Three times a week. hydrophilic ointment Apply 1 Application topically Daily. [...] both eyes 2 times daily. aka: PATANOL ondansetron 4 mg tablet Take 1 tablet by mouth every 6 hours as needed for Nausea. aka: ZOFRAN oxyCODONE-acetaminophen 5-325 mg per tablet Take 1-2 tablets by mouth every 6 hours as needed for Pain. Exempt. aka: PERCOCET pantoprazole 40 mg tablet Take 40 mg by mouth every morning (before breakfast). aka: PROTONIX Discontinued Medications insulin glargine 100 units/mL injection (pen) aka: LEEANNE LEO UNABLE TO FIND Procedures Performed This Admission: Tunneled PICC Dialysis Thoracic spine culture Pertinent Lab and Imaging Results: Recent Results (from the past 48 hour(s)) POC Glucose Collection Time: 03/29/19 12:24 Result Value Ref Range Glucose, POC 152 (H) 65 - 99 mg/dL POC Glucose Collection Time: 03/29/19 18:50 Result Value Ref Range Glucose, POC 91 65 - 99 mg/dL POC Glucose Collection Time: 03/29/19 21:09 Result Value Ref Range Glucose, POC 157 (H) 65 - 99 mg/dL CBC with Manual Differential Collection Time: 03/30/19 5:27 Result Value Ref Range WBC 4.43 3.80 - 11.00 K/uL RBC 3.12 (L) 3.70 - 5.10 M/uL Hemoglobin 10.3 (L) 11.3 - 15.5 g/dL Hct 31.6 (L) 34.0 - 46.0 % MCV 101.3 (H) 80.0 - 100.0 fL MCH 33.0 27.0 - 34.0 pg MCHC 32.6 32.0 - 35.5 g/dL RDW-CV 15.0 11.0 - 15.5 % Platelet Count 174 150 - 400 K/uL MPV 9.8 9.3 - 12.7 fL % Neutrophils 64.0 38.0 - 70.0 % % Lymphocytes 26.0 15.0 - 48.0 % % Monocytes 5.0 0.0 - 12.0 % % Eosinophils 3.0 0.0 - 7.0 % % Basophils 2.0 0.0 - 2.0 % Absolute Neutrophils 2.84 1.80 - 7.70 K/uL Absolute Lymphocytes 1.15 1.00 - 3.90 K/uL Absolute Eosinophils 0.13 0.00 - 0.50 K/uL Absolute Basophils 0.09 0.00 - 0.10 K/uL Absolute Monocytes 0.22 0.00 - 0.80 K/uL Platelet Estimate Adequate RBC Macrocytes 1+ Total Counted 100 Basic Metabolic Panel Collection Time: 03/30/19 5:27 Result Value Ref Range Na 137 135 - 145 mmol/L K 3.5 3.5 - 5.0 mmol/L Cl 102 99 - 109 mmol/L CO2 29 (H) 21 - 28 mmol/L Anion Gap 6 5 - 16 mmol/L Ca 7.7 (L) 8.5 - 10.2 mg/dL BUN 10 8 - 25 mg/dL Creatinine 2.79 (H) 0.50 - 1.00 mg/dL Glucose 86 65 - 99 mg/dL Estimated GFR 16 (L) >=90 mL/min/1.73m2 Magnesium Collection Time: 03/30/19 5:27 Result Value Ref Range Magnesium 1.9 1.7 - 2.4 mg/dL Phosphorus Collection Time: 03/30/19 5:27 Result Value Ref Range Phosphorus 3.4 2.6 - 4.4 mg/dL POC Glucose Collection Time: 03/30/19 8:54 Result Value Ref Range Glucose, POC 105 (H) 65 - 99 mg/dL POC Glucose Collection Time: 03/30/19 12:49 Result Value Ref Range Glucose, POC 146 (H) 65 - 99 mg/dL POC Glucose Collection Time: 03/30/19 17:46 Result Value Ref Range Glucose, POC 111 (H) 65 - 99 mg/dL POC Glucose Collection Time: 03/30/19 21:14 Result Value Ref Range Glucose, POC 200 (H) 65 - 99 mg/dL Vancomycin Level Collection Time: 03/31/19 4:12 Result Value Ref Range Vancomycin Random 19.0 ug/mL CBC with Differential Collection Time: 03/31/19 4:12 Result Value Ref Range WBC 4.60 3.80 - 11.00 K/uL RBC 2.97 (L) 3.70 - 5.10 M/uL Hemoglobin 9.7 (L) 11.3 - 15.5 g/dL Hct 30.3 (L) 34.0 - 46.0 % MCV 102.0 (H) 80.0 - 100.0 fL MCH 32.7 27.0 - 34.0 pg MCHC 32.0 32.0 - 35.5 g/dL RDW-CV 14.8 11.0 - 15.5 % Platelet Count 176 150 - 400 K/uL MPV 10.1 9.3 - 12.7 fL % Neutrophils 56.0 40.0 - 75.0 % % Lymphocytes 30.0 15.0 - 48.0 % % Monocytes 8.3 0.0 - 12.0 % % Eosinophils 4.6 0.0 - 7.0 % % Basophils 0.9 0.0 - 2.0 % % Immature Granulocytes 0.2 0.0 - 1.0 % Absolute Neutrophils 2.58 1.90 - 7.40 K/uL Absolute Lymphocytes 1.38 1.00 - 3.90 K/uL Absolute Monocytes 0.38 0.00 - 0.80 K/uL Absolute Eosinophils 0.21 0.00 - 0.50 K/uL Absolute Basophils 0.04 0.00 - 0.10 K/uL Absolute Immature Granulocytes 0.01 0.00 - 0.03 K/uL Basic Metabolic Panel Collection Time: 03/31/19 4:12 Result Value Ref Range Na 135 135 - 145 mmol/L K 3.6 3.5 - 5.0 mmol/L Cl 101 99 - 109 mmol/L CO2 29 (H) 21 - 28 mmol/L Anion Gap 5 5 - 16 mmol/L Ca 8.3 (L) 8.5 - 10.2 mg/dL BUN 16 8 - 25 mg/dL Creatinine 3.76 (H) 0.50 - 1.00 mg/dL Glucose 84 65 - 99 mg/dL Estimated GFR 11 (L) >=90 mL/min/1.73m2 POC Glucose Collection Time: 03/31/19 8:53 Result Value Ref Range Glucose, POC 89 65 - 99 mg/dL Microbiology Results (Last 14 Days by Collected Date with Culture/Sensitivity) Procedure Component Value Units Date/Time Culture, Aerobic + Anaerobic [[id number]] Collected: 03/24/191513 Order Status: Completed Lab Status: Final result Updated: 03/29/19717 Specimen: Body Fluid from Vertebrae, Thoracic FINAL REPORT -- No Growth No anaerobes isolated Gram Stain Few Neutrophils No squamous epithelial cells seen No organisms seen Comment: Performed by [facility] [address] [place] [address] Gram Stain [[id number]] Collected: 03/24/19 151 Order Status: Canceled Lab Status: No result Updated: 03/24/19 151 Specimen: Body Fluid from Vertebrae, Thoracic Culture, AFB Smear [[id number]] Collected: 03/24/191513 Order Status: Completed Lab Status: Preliminary result Updated: 03/25/19 1054 Specimen: Body Fluid from Vertebrae, Thoracic AFB Smear Result No Acid Fast Bacilli Seen Comment: Performed by [facility] [address] [place] [address] Culture, Fungus, Smear [[id number]] Collected: 03/24/19 151 Order Status: Completed Lab Status: Preliminary result Updated: 03/25/19 1039 Specimen: Body Fluid from Vertebrae, Thoracic CALCOFLUOR No fungal elements seen Comment: Performed by [facility] [address] [place] [address] Culture, Blood [[id number]] Collected: 03/23/19 2333 Order Status: Completed Lab Status: Final result Updated: 03/28/19 2352 Specimen: Blood Culture No growth after 5 days incubation. Culture, Blood [[id number]] Collected: 03/23/19 2255 Order Status: Completed Lab Status: Final result Updated: 03/28/19 1279 Specimen: Blood Culture No growth after 5 days incubation. EXAM: MRI LUMBAR SPINE W WO CONTRAST dated 03/23/2019 5:18 PM HISTORY:RIB PAIN COMPARISON: CT chest abdomen pelvis 03/23/2019. TECHNIQUE: Multiplanar multisequence MR imaging of the lumbar spine performed prior to and following the uneventful intravenous administration of 7 cc of gadolinium contrast. This is performed on a 3Tesla MRI scanner. FINDINGS:There are 5 lumbar-type vertebral bodies. This is either assumed for counting purposes or documented on prior studies. Mild leftward curvature. There are Modic type I endplate changes at T11-T12. There is a minimal amount of fluid in the anterior margin of the disc. There is diffuse edema throughout all the vertebral bodies. There are Modic type I endplate changes at L2-L3 and to lesser extent L3-L4. There is disc desiccation at L2-L3 through L5-S1. There is anterolisthesis of L5 x 5 mm. No compression deformities. The conus terminates at the thoracic lumbar junction. The visible distal cord is unremarkable. No abnormal epidural fluid collections. Small amount of endplate signal change in the anterior inferior T10 vertebral body with associated enhancement. There is some paravertebral soft tissue enhancement at this level is well. The following levels are evaluated in the axial plane: T11-T12: Small posterior disc protrusion. Mild narrowing of the central spinal canal. The neural foramen are patent. There is diffuse enhancement along the endplates and throughout the vertebral bodies. There is enhancement of the paravertebral soft tissues centered around the T11-T12 level. T12-L1: No significant central stenosis or neural foraminal narrowing. L1-2: No significant central stenosis or neural foraminal narrowing. L2-3: Broad posterior disc protrusion. Mild facet arthrosis and ligamentum flavum redundancy. Mild narrowing of the central spinal canal. Mild/moderate bilateral neural foraminal narrowing. L3-4: Broad posterior disc protrusion. Mild to moderate facet arthrosis. Ligament flavum redundancy. Mild facet effusions bilaterally. Mild narrowing of the central spinal canal. Mild to moderate narrowing of the neural foramen bilaterally. L4-5: Broad posterior disc protrusion. Moderate facet arthrosis and ligamentum flavum redundancy. Moderate narrowing of the central spinal canal and encroachment on the subarticular recesses. Moderate left and moderate to severe right neural foraminal narrowing. L5-S1: Broad posterior disc protrusion. Severe facet arthrosis bilaterally. Mild narrowing of the central spinal canal. Moderate right and severe left neural foraminal narrowing. Partial visualization of a prominent left pleural effusion. IMPRESSION - Findings remain somewhat suspicious for osteomyelitis. There is not fluid signal throughout the disc which would be atypical for osteomyelitis/discitis. However, there is mild paravertebral soft tissue thickening and enhancement. This would be atypical for strictly degenerative related changes which is in the differential. Spondylosis in the lumbar spine with central spinal canal narrowing most significantly affecting L4-L5 where it is moderate. Neural foraminal narrowing most significant affects L5-S1 on the left where it is severe. It is also moderate on the left and moderate the right at L4-L5. Correlate clinically for any additional signs and symptoms of infection. Dictated and Signed by: Rolan Orellana MD Electronically signed: 03/23/2019 Condition at Discharge: Good Time Spent on Discharge: greater than 30 minutes Electronically signed by: Michelle Lopez DO 03/31/2019 11:40 Portions of this chart may have been created with [employer] voice recognition software. Occasi onal wrong-word or sound-alike substitutions may have occurred due to the inherent mckeon itations of voice recognition software. Please read the chart carefully and recognize, using context, where these substitutions have occurred documented in this encounter Medications at Time [...] + + + +---------+ + + | calcium acetate | Take 1 capsule by | 180 | 0 | 03/31/20 | | | (PHOSLO) 667 mg | mouth 3 times daily | capsule | | 19 | | | capsule | (with meals). | | | | | + + + +---------+ + + | Cholecalciferol | Take 4,000 Units by | | 0 | 12/11/19 | | | 4000 units TABS | [...] + + + +---------+ + + | cefepime | Inject 1 g into the | 33 each | 0 | 04/01/20 | | | (MAXIPIME) 1 g in | vein every 24 hours | | | 19 | 9 | | sodium chloride 0.9% | for 33 days. | | | | | | 50 mL | Indications: | | | | | | IVPBIndications: | Infection of Bone | | | | | | Osteomyelitis, | and Bone Marrow, | | | | | | SEPSIS OF UNKNOWN | Sepsis of Unknown | | | | | | ETIOLOGY | Etiology | | | | | + + + +---------+ + + | doxercalciferol | Take 0.5 mg by mouth | | 0 | | | | (HECTOROL) 1 MCG | Three times a week. | | | | 9 | | CAPS | | | | | | + [...] +---------+ + + | gabapentin | Take 1 capsule by | 90 | 0 | 03/31/20 | | | (NEURONTIN) 100 mg | mouth Daily. | capsule | | 19 | 9 | | capsule | | | | | | + + + +---------+ + + | gabapentin | Take 1 capsule by | 90 | 0 | 03/31/20 | | | (NEURONTIN) 300 mg | mouth nightly. | capsule | | 19 | 9 | | capsule | | | | | | + + + +---------+ + + | hydrALAZINE | Take 1 tablet by | 120 | 0 | 03/31/20 | | | (APRESOLINE) 25 mg | mouth 2 times daily. | tablet | | 19 | 9 | | tablet | | [...] + + + +---------+ + + | NIFEdipine | Take 1 tablet by | 30 | 0 | 03/31/20 | | | (PROCARDIA XL) 90 mg | mouth Daily. | tablet | | 19 | 9 | | ER tablet | | | | | | + + + +---------+ + + | oxyCODONE | Take 1 tablet by | 40 | 0 | 03/31/20 | | | (ROXICODONE) 5 mg | mouth every 4 hours | tablet | | 19 | 9 | | tablet | as needed for Pain. | | | | | + + + +---------+ + + | | Take 1-2 tablets by | 60 | 0 | 01/31/20 | | | oxyCODONE-acetaminop | mouth every 6 hours | tablet | | 19 | 9 | | hen (PERCOCET) 5-325 | as needed for Pain. | | | | | | mg per | Exempt. | | | | | | tabletIndications: | | | | | | | Closed fracture of | | | | | | | neck of right femur, | | | | | | | initial encounter | | | | | | | ([facility]), Right hip | | | | | | | pain | | | | | | + + + +---------+ + + | probiotic capsule | Take 1 capsule by | 68 | 0 | 03/31/20 | | | | mouth 2 times daily | capsule | | 19 | 9 | | | for 34 days. | | | | | + + + +---------+ + + | vancomycin in | 500 mg IV on | 14 each | 0 | 03/31/20 | | | sodium chloride 0.9% | after dialysis, | | | 19 | 9 | | 100 mL | through 05/03 | | | | | | IVPBIndications: | Indications: | | | | | | Osteomyelitis | Infection of Bone | | | | | | | and Bone Marrow | | | | | + + + +---------+ + + documented as of this encounter Progress Notes Reid Clayton RN - 03/31/2019 5:42 PM PDTPatient left with family, [facility] supplies and i nstructions received before discharge and RX's filled at outpt pharmacy. VSS, ambulating wit h SBA, A&O x4, accepting of discharge. Dialysis completed this AM. Pain controlled with q4 o xy, LD 1400. Home health will f/u tomorrow. AVS reviewed and sent with patient, verbalized u nderstanding. Merry Hess EMU FARMER - 03/31/2019 11:05 AM PDTSOCIAL WORK PLAN: Home with [facility] NEXT STEPS: 1. Pt to follow up with [facility] 2. [facility] to follow up with pt at dc INTERVENTION: SW spoke with [facility], pt has a $2.50 out of pocket cost weekly, pt is agreeable to pay for this. Therefore pt will dc today with [facility]. ROBIN provided [facility] with hard script for IV abx. ROBIN faxed over HH order to [facility], ROBIN faxed over IV vanco script to [facility]. [facility] notified of pt's dc home. notified. [facility] to meet with pt later this afternoon for teach. ROBIN provided pt with 3 gas cards to assist with transportation. No further dc needs identified. SW received call from [facility] clinic that they cannot provide IV Vanco as Vanco h as not been consigned by [employer] [facility] that has privileges in [place]. IV Vanco will now be done b y [facility], [facility] [place] faxed over hard script to Candie. They will have both IV Abx ready and will teach pt shortly. No further dc needs identified. CONTACTS: Yina La: sister India Tilley: sister [place] Transportation: [place] Medicaid Transportation fax: [phone] [facility]: [phone] fax: [phone] [place] [phone] [facility]: [phone] [facility]: [phone] [facility] FAX: [phone] Camryn Michelle DO [place] - 03/31/2019 10:12 AM PDT Patient: Estefani Tilley Date of : 1945 Admit Date: 03/24/2019 Date of Service: 03/31/2019 PCP: Francisca Womack PA-C Hospital Day: Hospital Day: 8 Hospital Course: 73-year-old female with history of ESRD on hemodialysis, hypertension, type 2 diabetes, hyp othyroidism, chronic anemia, hyperlipidemia with a history of stroke transferred from [facility] [place] for evaluation of T11-T12 lesion noted on MRI concerning for osteomyeliti s. Infectious disease consulted. She underwent CT guided aspiration from her thoracic spine on 03/24, Gram stain and bacterial cultures negative. AFP and fungal cultures preliminarily negative, but finalization still pending. ID is following. Infectious parameters improving some, with CRP down to 0.8 03/29. Patient started on empiric vancomycin and cefepime 03/24 w ith plans to complete 6 weeks of IV antibiotics (likely through 05/04), if all cultures remai n NGTD. Tunneled PICC was placed 03/28. She is medically ready for d/c at this point. She initially had planned to go to SNF ([facility] in [place], [place] - of which has accepted her and is able to admit on 04/01), however , as of 03/30 afternoon, she decided she would like to d/c to home with home IV antibiotics a nd IV vanco with dialysis, if possible. She has a sister whom is a nurse and feels comforta ble that she could help with administration of IV abx if needed. SW contacted to see if ins urance would cover cost of IV abx and IV supplies. SW arranging with OP dialysis to see if they are willing to administer vancomycin on dialysis days. If this is unable to be arrange d/insurance does not cover the costs - then would plan to d/c to SNF on 04/01. Assessment and Plan: Assessment of active problems addressed today: Osteomyelitis/Discitis of T11, T12 vertebra -MRI spine 03/23/19: "mild paravertebral soft tissue thickening and enhancement, no fluid si gnal throughout the disc which would be atypical for osteo/discitis, which would be atypical strictly for degenerative related changes." -Afebrile, improved WBC count, improved CRP down to 0.8 on 03/29, from 1.5 on 03/25 -S/p aspiration T11/T12 spine by IR on 03/24, Gram stain and bacterial cultures negative -Fungal stains prelim negative, finalization of fungal cultures still pending -Blood cultures x 2 negative -Fistula site appears clean, not erythematous, no e/o infection -TTE negative for e/o endocarditis -Infectious disease consulting -Continue vancomycin and cefepime - plan for 6 week course of IV abx - through 05/04 -Will need weekly CBC, CMP and CRP while on antibiotic therapy -Tunneled right picc placed 03/28 -Continue probiotic -Pain controlled with oxycodone and home gabapentin Hypertension BP improved -Continue home medications: labetalol 200 mg BID, losartan 100 mg daily -Continue hydralazine 25 mg BID (added this admission) -Increase home nifedipine from 60 mg daily up to 90 mg daily 03/29 with improved BP control -Prn hydralazine added -Monitor blood pressure Diabetes -Blood sugar stable 100-150s -No medication therapy -Continue insulin sliding scale -Continue 90 g CHO per meal ESRD on hemodialysis -Nephrology consulted, help appreciated -Continue dialysis and management per nephrology -Has RUE fistula -Chronic dialysis patient - has OP clinic in [place] already Macrocytic anemia likely secondary to-likely anemia of chronic disease No concern for bleeding Epogen per nephrology B12 and folic acid within normal Continue to monitor hemoglobin Hypothyroidism Home levothyroxine Active Hospital Problems Diagnosis probable Discitis of thoracic region ESRD (end stage renal disease) on dialysis DM (diabetes mellitus), type 2 Macrocytic anemia Essential hypertension Hyperlipidemia DJD (degenerative joint disease) Resolved Hospital Problems No resolved problems to display. I have reviewed and updated the problem list. Disposition: TBD - hoping to arrange home IV antibiotics through [facility]. Awaiting to see if insurance will cover cost of supplies. Also need to clarify with dialysis unit if she can get IV vancomycin on dialysis days after dialysis. CODE STATUS: Full Code DVT prophylaxis: Anticoagulants Salicylates aspirin EC tablet 81 mg 81 mg, Oral, DAILY, Do not cut or crush. Subjective: CC: Patient appears comfortable. Seen in dialysis. States she had a much better night - s he feels better rested - Gabapentin at night was helpful per her report. If possible, she would prefer to d/c home with IV antibiotics and home and vancomycin with dialysis if able to be arranged. ROS Denies abdominal pain, N/V, denies fevers or chills. Objective: Vital Signs 03/29 700 - 03/30 0659 03/30 700 - 03/31 0659 03/31 700 - 03/31 1013 Most Rec ent Temp (C) 36.2 - 36.8 35.9 - 36.6 36.2 - 36.7 36.7 (98.1) Pulse 64 - 79 70 - 71 69 - 74 74 Resp 16 - 18 16 16 16 BP 108/48 - 192/68 146/65 - 150/73 151/66 - 157/83 157/83 SpO2 (%) 95 - 99 96 - 98 93 - 96 96 Weight (kg) 60 - 63.7 65.5 65.6 65.6 kg (144 lb 10 oz) I/O last 3 completed shifts: In: 1810 [P.O.:1810] Out: 0 Wt Readings from Last 3 Encounters: 03/31/19 65.6 kg (144 lb 10 oz) 03/23/19 66.7 kg (147 lb) 02/03/19 70.8 kg (156 lb) Active Lines CVC Line Tunneled Central Line - Double Lumen 03/28/19 1451 internal jugular vein, right 2 days Line Hemodialysis AV Access 01/04/18 fistula upper arm, right 451 days Active Tubes/Drains None Physical Exam Constitutional: No distress. Head: Normocephalic and atraumatic. Eyes: Conjunctivae and EOM are normal. Pupils are equal, round, and reactive to light. ENT/Mouth: oral mucosa is moist. Neck: Normal range of motion. Neck supple. Cardiovascular: Normal rate and regular rhythm. Right tunneled PICC. Pulmonary/Chest: Normal Work of breathing, breath sounds normal. No wheeze, no rhonchi. Abdominal: Soft, non tender, non distended, Bowel sounds are present. There is no rebound a nd no guarding. Back: tenderness to palpation in the lower thoracic and upper lumbar vertebral region with paraspinal tenderness. Musculoskeletal: There is no edema. Neurological: There are no focal neurologic deficit. Psychiatric: AAOX 2 Skin: warm and dry. Right upper extremity AV fistula Medications: aspirin 81 mg Oral Daily calcium acetate 667 mg Oral TID WC cefepime 1 g Intravenous Daily cholecalciferol 4,000 Units Oral Daily doxercalciferol 0.5 mcg Oral Once per day on Wed furosemide 80 mg Oral Daily gabapentin 100 mg Oral Daily gabapentin 300 mg Oral Nightly hydrALAZINE 25 mg Oral BID insulin lispro 0-12 Units Subcutaneous 4x Daily WC and HS labetalol 200 mg Oral BID levothyroxine 75 mcg Oral QAM AC lidocaine 1 patch Transdermal Daily losartan 100 mg Oral Daily NIFEdipine 90 mg Oral Daily olopatadine 1-2 drop Both Eyes BID pantoprazole 40 mg Oral QAM AC probiotic 1 capsule Oral BID vancomycin 500 mg Intravenous Once vancomycin per pharmacy Other Pharmacy Consult 24 HOUR LABS: Recent Results (from the past 24 hour(s)) POC Glucose Result Value Ref Range Glucose, POC 146 (H) 65 - 99 mg/dL POC Glucose Result Value Ref Range Glucose, POC 111 (H) 65 - 99 mg/dL POC Glucose Result Value Ref Range Glucose, POC 200 (H) 65 - 99 mg/dL Vancomycin Level Result Value Ref Range Vancomycin Random 19.0 ug/mL CBC with Differential Result Value Ref Range WBC 4.60 3.80 - 11.00 K/uL RBC 2.97 (L) 3.70 - 5.10 M/uL Hemoglobin 9.7 (L) 11.3 - 15.5 g/dL Hct 30.3 (L) 34.0 - 46.0 % MCV 102.0 (H) 80.0 - 100.0 fL MCH 32.7 27.0 - 34.0 pg MCHC 32.0 32.0 - 35.5 g/dL RDW-CV 14.8 11.0 - 15.5 % Platelet Count 176 150 - 400 K/uL MPV 10.1 9.3 - 12.7 fL % Neutrophils 56.0 40.0 - 75.0 % % Lymphocytes 30.0 15.0 - 48.0 % % Monocytes 8.3 0.0 - 12.0 % % Eosinophils 4.6 0.0 - 7.0 % % Basophils 0.9 0.0 - 2.0 % % Immature Granulocytes 0.2 0.0 - 1.0 % Absolute Neutrophils 2.58 1.90 - 7.40 K/uL Absolute Lymphocytes 1.38 1.00 - 3.90 K/uL Absolute Monocytes 0.38 0.00 - 0.80 K/uL Absolute Eosinophils 0.21 0.00 - 0.50 K/uL Absolute Basophils 0.04 0.00 - 0.10 K/uL Absolute Immature Granulocytes 0.01 0.00 - 0.03 K/uL Basic Metabolic Panel Result Value Ref Range Na 135 135 - 145 mmol/L K 3.6 3.5 - 5.0 mmol/L Cl 101 99 - 109 mmol/L CO2 29 (H) 21 - 28 mmol/L Anion Gap 5 5 - 16 mmol/L Ca 8.3 (L) 8.5 - 10.2 mg/dL BUN 16 8 - 25 mg/dL Creatinine 3.76 (H) 0.50 - 1.00 mg/dL Glucose 84 65 - 99 mg/dL Estimated GFR 11 (L) >=90 mL/min/1.73m2 POC Glucose Result Value Ref Range Glucose, POC 89 65 - 99 mg/dL Glucose, POC Date/Time Value Ref Range Status 03/31/2019 08:53 89 65 - 99 mg/dL Final Comment: Performed by [facility] [address] [place] [address] 03/30/2019 21:14 200 (H) 65 - 99 mg/dL Final Comment: Performed by [facility] [address] [place] [address] 03/30/2019 17:46 111 (H) 65 - 99 mg/dL Final Comment: Performed by [facility] [address] [place] [address] 12/09/2018 18:05 113 (H) 70 - 109 mg/dL Final 12/09/2018 11:54 175 (H) 70 - 109 mg/dL Final 12/09/2018 06:09 117 (H) 70 - 109 mg/dL Final All pertinent labs and imaging have been reviewed. Please refer to the Assessment and Plan for details on management. I spent 30 minutes with the patient and on the patient's unit, in discussion with , with over 50% spent in counseling and/or coordination of care. Please refer to the Assessment an d Plan for details. Electronically signed by: Michelle Lopez DO 03/31/2019 10:13 Portions of this chart may have been created with [employer] voice recognition software. Occasi onal wrong-word or sound-alike substitutions may have occurred due to the inherent mckeon itations of voice recognition software. Please read the chart carefully and recognize, using context, where these substitutions have occurred rgJesus mcdonald MD - 03/31/2019 8:26 AM PDT . Infectious Diseases Progress Note Pt. Name/Age/: Estefani Tilley 73 y.o. 1945 Med. Record Number: [id number] Date of admission: 03/24/2019 Patient admitted with thoracic vertebral discitis/osteomyelitis Date of service: 03/31/2019 Subjective: The patient chart and medications were reviewed in detail and the patient was s een and examined. Patient slept well last night. She is feeling much better with significantly less back terry n today. She is having no fevers. She is not short of breath or coughing. She is having n o abdominal pain or diarrhea. She has no new rash. Medications: Antibiotics Vancomycin Cefepime Objective: Physical Exam: Wt. Admission: Weight: 63.5 kg (140 lb) Wt. Current: Weight: 65.5 kg (144 lb 6.4 oz)(st anding weight; RD present ) Temp: [35.9 C (96.6 F)-36.3 C (97.3 F)] 36.2 C (97.1 F) Pulse: [69-71] 69 Resp: [16] 16 BP: (147-153)/(65-73) 153/66 General: Alert and in no distress HEENT: Sclera and conjunctive are clear, oropharyngeal mucosa clear Cardiovascular: Regular rate and rhythm, no change Respiratory: Clear to auscultation, normal respiratory effort Abdomen: Positive bowel sounds, soft, nontender Extremities/Musculoskeletal: Fistula present in right arm. No peripheral stigmata of endoc arditis or emboli. Without cyanosis Skin: Dry, warm, no rash Neurological: Oriented x3, moves all extremity Psychiatric: Affect and thought content are appropriate. Lab: Recent Results (from the past 24 hour(s)) POC Glucose Result Value Ref Range Glucose, POC 105 (H) 65 - 99 mg/dL POC Glucose Result Value Ref Range Glucose, POC 146 (H) 65 - 99 mg/dL POC Glucose Result Value Ref Range Glucose, POC 111 (H) 65 - 99 mg/dL POC Glucose Result Value Ref Range Glucose, POC 200 (H) 65 - 99 mg/dL Vancomycin Level Result Value Ref Range Vancomycin Random 19.0 ug/mL CBC with Differential Result Value Ref Range WBC 4.60 3.80 - 11.00 K/uL RBC 2.97 (L) 3.70 - 5.10 M/uL Hemoglobin 9.7 (L) 11.3 - 15.5 g/dL Hct 30.3 (L) 34.0 - 46.0 % MCV 102.0 (H) 80.0 - 100.0 fL MCH 32.7 27.0 - 34.0 pg MCHC 32.0 32.0 - 35.5 g/dL RDW-CV 14.8 11.0 - 15.5 % Platelet Count 176 150 - 400 K/uL MPV 10.1 9.3 - 12.7 fL % Neutrophils 56.0 40.0 - 75.0 % % Lymphocytes 30.0 15.0 - 48.0 % % Monocytes 8.3 0.0 - 12.0 % % Eosinophils 4.6 0.0 - 7.0 % % Basophils 0.9 0.0 - 2.0 % % Immature Granulocytes 0.2 0.0 - 1.0 % Absolute Neutrophils 2.58 1.90 - 7.40 K/uL Absolute Lymphocytes 1.38 1.00 - 3.90 K/uL Absolute Monocytes 0.38 0.00 - 0.80 K/uL Absolute Eosinophils 0.21 0.00 - 0.50 K/uL Absolute Basophils 0.04 0.00 - 0.10 K/uL Absolute Immature Granulocytes 0.01 0.00 - 0.03 K/uL Basic Metabolic Panel Result Value Ref Range Na 135 135 - 145 mmol/L K 3.6 3.5 - 5.0 mmol/L Cl 101 99 - 109 mmol/L CO2 29 (H) 21 - 28 mmol/L Anion Gap 5 5 - 16 mmol/L Ca 8.3 (L) 8.5 - 10.2 mg/dL BUN 16 8 - 25 mg/dL Creatinine 3.76 (H) 0.50 - 1.00 mg/dL Glucose 84 65 - 99 mg/dL Estimated GFR 11 (L) >=90 mL/min/1.73m2 Assessment and Plan: #1 thoracic vertebral osteomyelitis/discitis T11-T12 No evidence epidural abscess White count 4.60 No significant evidence vancomycin toxicity Temperature on admission, no fever no Underwent aspiration/biopsy 03/24 Stains negative, bacterial culture negative. AFB and fungal cultures negative to date. Final bacterial culture negative. AFB and fungal cultures pending. Neurologically stable and having less pain now. Of note, recent CRP is 0.8. On empiric vancomycin and cefepime Well-tolerated Anticipating 6 weeks intravenous antibiotics via secure access with weekly CBC, BMP, CRP, V anco trough Watch closely, may still merit surgical intervention #2 fever Resolved #3 reports penicillin allergy Cephalosporins well tolerated #4 end-stage renal disease Dialysis At risk for nosocomial pathogens Broad empiric therapy Doses adjusted #5 diabetes mellitus Requires optimal control Electronically signed by: Jesus Whitney, 03/31/2019 8:26 [facility] Robb Phillips, PharmD - 03/31/2019 7:25 AM PDTFormatting of this note might be different from the [facility]. Pharmacy Progress Note VANCOMYCIN PER PHARMACY PROTOCOL: Estefani Tilley is a 73 y.o. female receiving vancomycin for the treatment of osteomyelit is Assessment/Plan: 1. 03/31 AM random Vanco level = 19.0 2. Vancomycin 500 mg IV x 1 dose today after dialysis 3. Target Trough: 15-20 mcg/ml 4. ESRD on Chronic HD MWF 5. Random vancomycin level ordered for 04/03 with AM labs 6. Pharmacy to monitor daily and adjust dosage per protocol Subjective/Objective: Other antibiotics: cefepime Blood pressure 153/66, pulse 69, temperature 36.2 C (97.1 F), temperature source Tempor al, resp. rate 16, height 1.727 m (5' 8"), weight 65.5 kg (144 lb 6.4 oz), SpO2 93 %. Min/Max Temp past 24 hours:Temp Av.2 C (97.2 F) Min: 35.9 C (96.6 F) Max: 3 6.6 C (97.9 F) Recent Labs Lab 03/31/19 0412 03/30/19 0527 WBC 4.60 4.43 CREA 3.76* 2.79* BUN 16 10 Estimated Creatinine Clearance: 14 mL/min (A) (based on SCr of 3.76 mg/dL (H)). Lab Results Component Value Date/Time [facility].0 03/31/2019 04:12 I/O last 3 completed shifts: In: 1810 [P.O.:1810] Out: 0 No intake/output data recorded. Micro/Cultures: BCx - NGTD, BiopsyCx - NGTD Per P&T-approved Vancomycin Protocol Electronically signed by: Robb Wheeler PharmD 03/31/2019 7:25 su, Randy Nunez MD - 03/30/2019 9:45 PM PDT [facility] INPATIENT ROUNDING NOTE Date of Service: 03/30/2019 Rounding Physician: Randy Corrigan MD Patient Name: Estefani Tilley : 1945 Medical Record: [id number] Hospital Summary: Estefani Tilley is a 73 y.o. female with a PMHx of ESRD, HTN, Dm type 2, hypothyroidism, HLd, CVA who is under the care of Dr Muñoz at [facility] who dialyzes MWF admitted with possible osteo disccitis t11/t12 ASSESSMENT AND PLAN 1. ESRD/HD dependent NO HD needs today HD tommorow per usual MWF schedule 2. Anemia Hg at goal of 9-11 3. HTN Hard to control 4. BMM On Hectoral Po4 is elevated Started phoslo SUBJECTIVE: Patient waiting for SNF for antibiotics No complaints Back pain better Review of Symptoms: A complete ROS was performed with all others negative x 10 systems Scheduled Meds: aspirin 81 mg Oral Daily calcium acetate 667 mg Oral TID WC cefepime 1 g Intravenous Daily cholecalciferol 4,000 Units Oral Daily doxercalciferol 0.5 mcg Oral Once per day on Wed furosemide 80 mg Oral Daily gabapentin 100 mg Oral Daily gabapentin 300 mg Oral Nightly hydrALAZINE 25 mg Oral BID insulin lispro 0-12 Units Subcutaneous 4x Daily WC and HS labetalol 200 mg Oral BID levothyroxine 75 mcg Oral QAM AC lidocaine 1 patch Transdermal Daily losartan 100 mg Oral Daily NIFEdipine 90 mg Oral Daily olopatadine 1-2 drop Both Eyes BID pantoprazole 40 mg Oral QAM AC probiotic 1 capsule Oral BID vancomycin per pharmacy Other Pharmacy Consult Continuous Infusions: dextrose 10% OBJECTIVE Vitals Current 24 hour Min/Max BP 150/73 BP Min: 108/48 Max: 150/73 HR 71 Pulse Min: 70 Max: 71 Temp 36.3 C (97.3 F) Temp Min: 35.9 C (96.6 F) Max: 36.6 C (97.9 F) RR 16 Resp Min: 16 Max: 16 Sats SpO2: 98 % on L/min room air SpO2 Min: 95 % Max: 98 % 03/29 0701 - 03/30 0700 In: 713 [P.O.:660] Out: 2000 AOx3 JVp not elevated Chest is clear CVS RRR Abdomen Nt Ext no edema LUE AVF with good bruit and thrill Recent Labs Lab 03/30/19 0527 03/29/19 0519 03/28/19 0458 WBC 4.43 4.55 4.25 HGB 10.3* 10.2* 9.9* HCT 31.6* 31.8* 30.8* PLT 174 172 171 Recent Labs Lab 03/30/19 0527 03/29/19 0519 03/28/19 0458 03/26/19 1144 03/26/19 0411 03/25/19 0918 03/24/19 0518 NA 137 137 136 -- 133* 135 141 K 3.5 4.1 4.0 -- 4.3 5.0 4.4 CL 102 103 102 -- 99 101 105 CO2 29* 28 28 -- 27 28 27 BUN 10 19 12 -- 19 14 19 CREA 2.79* 4.14* 3.12* -- 3.82* 3.01* 4.02* MG 1.9 -- -- -- -- -- -- CALCIUM 7.7* 8.1* 8.0* -- 8.2* 8.0* 7.9* PHOS 3.4 -- -- 5.6* -- -- -- Diagnostic Studies: Available data and images were reviewed personally. Significant results and findings are ad dressed here or in the Assessment and Plan. Please feel free to contact me with any questions Electronically signed by: Trace Corrigan MD, 03/30/2019, 21:45 etNan wilkes, EMU FARMER - 03/30/2019 2:34 PM PDT SOCIAL WORK D/C PLAN:DC home with [facility] providing IV-ABX and [facility] providing picc care and lab draws vs [facility] NEXT STEPS: -SW will need to follow up with [facility] regarding providing IV-ABX to pt. -SW will need to follow up with [facility] regarding providing picc care and lab draws. -SW will need to follow up with [facility] regarding having pt receive vanco do se while at dialysis center if pt is to go home with IV-ABX -SW will need to follow up with [facility] if pt is unable to go home with IV-ABX rega ridng pt's DC -SW will need to fax SNF orders, scripts and PASRR to [facility] if pt is unable to go home -SW will need to provide gas cards to pt's family for transportation home. INTERVENTION:SW spoke with pt regarding acceptance to [facility]. Pt is now wanting to go home with IV-ABX. SW spoke with [facility]. They go out to [place], [place] and have openings for nursing care. Referral faxed to [facility]. Pt is amenable to using [facility] for IV-ABX. SW spoke with [facility] liasion who will run pt's be nefits to see if she can DC home with IV-ABX. Pt states that [facility] can provide teach to her son to help administer IV-ABX. SW left message for [facility] to see if they can provide vanco dose to pt at [facility] on Wednesday, Wednesday and Wednesday if pt is able to go home. Pt states that she does dialysis on Wednesday, Wednesday and Wednesday from 12:00-4:00. SW received phone call from [facility]. They have accepted pt for admission if pt is unab le to go home on IV-ABX. They can accept pt on 04/01/2019. They would like SNF or ders, scripts and PASRR to them on Wednesday for a Wednesday DC if pt is going to DC to SNF. Pt will need to have her cefepime administered at 6:00 am on Wednesday morning for a 10:00 am D C if pt is going to go to [facility]. ASSESSMENT/CHART REVIEW:73 yr old femalewith a history of ESRD on hemodialysis, hypertens ion, type 2 diabetes, hypothyroidism,chronic anemia,hyperlipidemia, hx of stroke [facility] lesion noted on MRI concerning fo r osteomyelitis. ROBIN met with pt's sister, Yina, and her cousin, Keri, who were waiting in pt's room while s he was in dialysis. ROBIN will need to follow up with pt re: d/c planning. Pt's sister and cousin related that pt mostly lives at Yina's house outside [place], [place], but does not like to be tied down because she enjoys attending [place] festivals and many events. She does at tend dialysis weekly. Pt has a vehicle and is very independent. D/C TRANSPORT:Pt can be transported home or to [facility] via family in a private car. They will need gas cards to help pay for transportation. BARRIERS TO D/C:none CONTACTS: Yina La: sister India Tilley: sister [place] Transportation: [place] Transportation fax: [phone] [facility]: [phone] fax: [phone] [facility] [phone] [facility]: [phone] [facility]: [phone] [facility] FAX: [phone] Nan Cheney MSW - 03/30/2019 12:57 PM PDTSOCIAL WORK D/C PLAN:SNF: [facility] NEXT STEPS:Await bed availability INTERVENTION: ROBIN called and left message for Roneugene at [facility] regarding if they are willing to accept pt and to discuss transportation to and from dialysis. SW also called and left message for [place] Medicaid transportation regarding if they can transp ort pt to and from dialysis upon DC. Pt states that she goes to [facility] dialys is in [place], [place] on Wed, Wed, and Fridays from 12:00-4:00 pm. SW left message with [facility] dialysis regarding if there was any way that they may also be able to help with transportation to and from dialysis while pt is in rehab and to ensure that pt still has her chair time scheduled. [facility] is only open M on, Wednesday and Wednesday. ASSESSMENT/CHART REVIEW:73 yr old femalewith a history of ESRD on hemodialysis, hypertens ion, type 2 diabetes, hypothyroidism,chronic anemia,hyperlipidemia, hx of stroke [facility] noted on MRI concerning fo r osteomyelitis. ROBIN met with pt's sister, Yina, and her cousin, Keri, who were waiting in pt's room while s he was in dialysis. ROBIN will need to follow up with pt re: d/c planning. Pt's sister and cousin related that pt mostly lives at Yina's house outside [place], [place], but does not like to be tied down because she enjoys attending [place] festivals and many events. She does at tend dialysis weekly. Pt has a vehicle and is very independent. D/C TRANSPORT:tbd BARRIERS TO D/C:none CONTACTS: Yina La: sister India Tilley: sister [place] Transportation: [place] Transportation fax: [phone] [facility]: [phone] fax: [phone] [facility] [phone] [facility]: [phone] signed by JENNIFER Xavier at 03/30 1:09 PM PDTRafter, Michelle Taylor, DO - 03/30/2019 11:09 AM PDTFormatting of this note mi ght be different from the original. Patient: Estefani Tilley Date of : 1945 Admit Date: 03/24/2019 Date of Service: 03/30/2019 PCP: Francisca Womack PA-C Hospital Day: Hospital Day: 7 Hospital Course: 73-year-old female with history of ESRD on hemodialysis, hypertension, type 2 diabetes, hyp othyroidism, chronic anemia, hyperlipidemia with a history of stroke transferred from [facility] for evaluation of T11-T12 lesion noted on MRI concerning for osteomyeliti s. Infectious disease consulted. She underwent CT guided aspiration from her thoracic spine on 03/24, Gram stain and bacterial cultures negative. AFP and fungal cultures preliminarily negative, but finalization still pending. ID is following. Infectious parameters improving some, with CRP down to 0.8 03/29. Patient started on empiric vancomycin and cefepime 03/24 w ith plans to complete 6 weeks of IV antibiotics (likely through 05/04), if all cultures remai n NGTD. Tunneled PICC was placed 03/28. She will d/c to SNF when medically ready. SW arranging placement, awaiting to hear from [facility], in [place] regarding possible acceptance. She is improved overall and medic ally ready for discharge. She is a chronic dialysis patient, Nephrology is following for on going dialysis needs. She will need three times weekly dialysis while at [facility] as well. SW t o help determine transportation and help arrange any further dialysis needs prior to d/c. Assessment and Plan: Assessment of active problems addressed today: Osteomyelitis/Discitis of T11, T12 vertebra -MRI spine 03/23/19: "mild paravertebral soft tissue thickening and enhancement, no fluid si gnal throughout the disc which would be atypical for osteo/discitis, which would be atypical strictly for degenerative related changes." -Afebrile, improved WBC count, improved CRP down to 0.8 on 03/29, from 1.5 on 03/25 -S/p aspiration T11/T12 spine by IR on 03/24, Gram stain and bacterial cultures negative -Fungal stains prelim negative, finalization of fungal cultures still pending -Blood cultures x 2 negative -Fistula site appears clean, not erythematous, no e/o infection -TTE negative for e/o endocarditis -Infectious disease consulting -Continue vancomycin and cefepime - plan for 6 week course of IV abx - through 05/04 -Vanc trough 18.6 today -Will need weekly CBC, CMP and CRP while on antibiotic therapy -Tunneled right picc placed 03/28 -Continue probiotic -Pain controlled with oxycodone, will also add gabapentin back today per her request Hypertension BP improved overall into the 110 range today -Continue home medications: labetalol 200 mg BID, losartan 100 mg daily -Continue hydralazine 25 mg BID (added this admission) -Increase home nifedipine from 60 mg daily up to 90 mg daily 03/29 with improved BP control -Prn hydralazine added -Monitor blood pressure Diabetes -Blood sugar stable 100-150s -No medication therapy -Continue insulin sliding scale -Continue 90 g CHO per meal ESRD on hemodialysis -Nephrology consulted, help appreciated -Continue dialysis and management per nephrology -Has RUDora fistula -Chronic dialysis patient - has OP clinic in [place] already ---> will need SW to help cathy ferrera with SNF facility, how she will get to dialysis on outpatient basis while at SNF Macrocytic anemia likely secondary to-likely anemia of chronic disease No concern for bleeding Epogen per nephrology B12 and folic acid within normal Continue to monitor hemoglobin Hypothyroidism Home levothyroxine Active Hospital Problems Diagnosis probable Discitis of thoracic region ESRD (end stage renal disease) on dialysis DM (diabetes mellitus), type 2 Macrocytic anemia Essential hypertension Hyperlipidemia DJD (degenerative joint disease) Resolved Hospital Problems No resolved problems to display. I have reviewed and updated the problem list. Disposition: TBD - SW arranging SNF - awaiting to hear back from [facility] in [place], [place] regarding possible acceptance there. Medically ready for d/c as of 03/30, if OK with ID, and if SNF accepted and insurance authorization has been obtained. CODE STATUS: Full Code DVT prophylaxis: Anticoagulants Salicylates aspirin EC tablet 81 mg 81 mg, Oral, DAILY, Do not cut or crush. Subjective: CC: Patient appears comfortable. Sitting in bedside chair. Frustrated with her roommate t chuck - states no sleep in almost 48 hours due to issues with her roommate. Clinically doing well otherwise per her report. ROS Denies abdominal pain, N/V, denies fevers or chills. Objective: Vital Signs 03/28 700 - 03/29 0659 03/29 700 - 03/30 0659 03/30 700 - 03/30 1110 Most Rec ent Temp (C) 35.9 - 36.4 36.2 - 36.8 36.6 36.6 (97.9) Pulse 60 - 73 64 - 79 70 70 Resp 16 16 - 18 16 16 BP 141/66 - 166/75 108/48 - 192/68 146/65 146/65 SpO2 (%) 95 - 99 95 - 99 96 96 Weight (kg) 60 - 63.7 65.5 65.5 kg (144 lb 6.4 oz) Comment: standing weight; RD present I/O last 3 completed shifts: In: 713 [P.O.:660; IV Piggyback:53] Out: 2000 Wt Readings from Last 3 Encounters: 03/30/19 65.5 kg (144 lb 6.4 oz) 03/23/19 66.7 kg (147 lb) 02/03/19 70.8 kg (156 lb) Active Lines CVC Line Tunneled Central Line - Double Lumen 03/28/19 1451 internal jugular vein, right 1 day PIV Line Peripheral IV Line - Single Lumen 03/24/19 2143 Left Lateral Forearm [id number] daniel ter system 20 gauge;1 / in length 5 days Line Hemodialysis AV Access 01/04/18 fistula upper arm, right 450 days Active Tubes/Drains None Physical Exam Constitutional: No distress. Head: Normocephalic and atraumatic. Eyes: Conjunctivae and EOM are normal. Pupils are equal, round, and reactive to light. ENT/Mouth: oral mucosa is moist. Neck: Normal range of motion. Neck supple. Cardiovascular: Normal rate and regular rhythm. Right tunneled PICC. Pulmonary/Chest: Normal Work of breathing, breath sounds normal. No wheeze, no rhonchi. Abdominal: Soft, non tender, non distended, Bowel sounds are present. There is no rebound a nd no guarding. Back: tenderness to palpation in the lower thoracic and upper lumbar vertebral region with paraspinal tenderness. Musculoskeletal: There is no edema. Neurological: There are no focal neurologic deficit. Psychiatric: AAOX 2 Skin: warm and dry. Right upper extremity AV fistula Medications: aspirin 81 mg Oral Daily calcium acetate 667 mg Oral TID WC cefepime 1 g Intravenous Daily cholecalciferol 4,000 Units Oral Daily doxercalciferol 0.5 mcg Oral Once per day on Wed furosemide 80 mg Oral Daily gabapentin 100 mg Oral Daily gabapentin 300 mg Oral Nightly hydrALAZINE 25 mg Oral BID insulin lispro 0-12 Units Subcutaneous 4x Daily WC and HS labetalol 200 mg Oral BID levothyroxine 75 mcg Oral QAM AC lidocaine 1 patch Transdermal Daily losartan 100 mg Oral Daily NIFEdipine 90 mg Oral Daily olopatadine 1-2 drop Both Eyes BID pantoprazole 40 mg Oral QAM AC probiotic 1 capsule Oral BID vancomycin per pharmacy Other Pharmacy Consult 24 HOUR LABS: Recent Results (from the past 24 hour(s)) POC Glucose Result Value Ref Range Glucose, POC 152 (H) 65 - 99 mg/dL POC Glucose Result Value Ref Range Glucose, POC 91 65 - 99 mg/dL POC Glucose Result Value Ref Range Glucose, POC 157 (H) 65 - 99 mg/dL CBC with Manual Differential Result Value Ref Range WBC 4.43 3.80 - 11.00 K/uL RBC 3.12 (L) 3.70 - 5.10 M/uL Hemoglobin 10.3 (L) 11.3 - 15.5 g/dL Hct 31.6 (L) 34.0 - 46.0 % MCV 101.3 (H) 80.0 - 100.0 fL MCH 33.0 27.0 - 34.0 pg MCHC 32.6 32.0 - 35.5 g/dL RDW-CV 15.0 11.0 - 15.5 % Platelet Count 174 150 - 400 K/uL MPV 9.8 9.3 - 12.7 fL % Neutrophils 64.0 38.0 - 70.0 % % Lymphocytes 26.0 15.0 - 48.0 % % Monocytes 5.0 0.0 - 12.0 % % Eosinophils 3.0 0.0 - 7.0 % % Basophils 2.0 0.0 - 2.0 % Absolute Neutrophils 2.84 1.80 - 7.70 K/uL Absolute Lymphocytes 1.15 1.00 - 3.90 K/uL Absolute Eosinophils 0.13 0.00 - 0.50 K/uL Absolute Basophils 0.09 0.00 - 0.10 K/uL Absolute Monocytes 0.22 0.00 - 0.80 K/uL Platelet Estimate Adequate RBC Macrocytes 1+ Total Counted 100 Basic Metabolic Panel Result Value Ref Range Na 137 135 - 145 mmol/L K 3.5 3.5 - 5.0 mmol/L Cl 102 99 - 109 mmol/L CO2 29 (H) 21 - 28 mmol/L Anion Gap 6 5 - 16 mmol/L Ca 7.7 (L) 8.5 - 10.2 mg/dL BUN 10 8 - 25 mg/dL Creatinine 2.79 (H) 0.50 - 1.00 mg/dL Glucose 86 65 - 99 mg/dL Estimated GFR 16 (L) >=90 mL/min/1.73m2 Magnesium Result Value Ref Range Magnesium 1.9 1.7 - 2.4 mg/dL Phosphorus Result Value Ref Range Phosphorus 3.4 2.6 - 4.4 mg/dL POC Glucose Result Value Ref Range Glucose, POC 105 (H) 65 - 99 mg/dL Glucose, POC Date/Time Value Ref Range Status 03/30/2019 08:54 105 (H) 65 - 99 mg/dL Final Comment: Performed by [facility] [address] [place] [address] 03/29/2019 21:09 157 (H) 65 - 99 mg/dL Final Comment: Performed by [facility] [address] [place] [address] 03/29/2019 18:50 91 65 - 99 mg/dL Final Comment: Performed by [facility] [address] [place] [address] 12/09/2018 18:05 113 (H) 70 - 109 mg/dL Final 12/09/2018 11:54 175 (H) 70 - 109 mg/dL Final 12/09/2018 06:09 117 (H) 70 - 109 mg/dL Final All pertinent labs and imaging have been reviewed. Please refer to the Assessment and Plan for details on management. I spent 30 minutes with the patient and on the patient's unit, with over 50% spent in coun seling and/or coordination of care. Please refer to the Assessment and Plan for details. Electronically signed by: Michelle Lopez DO 03/30/2019 11:10 Portions of this chart may have been created with [employer] voice recognition software. Occasi onal wrong-word or sound-alike substitutions may have occurred due to the inherent mckeon itations of voice recognition software. Please read the chart carefully and recognize, using context, where these substitutions have occurred rgJesus mcdonald MD - 03/30/2019 7:15 AM PDT . Infectious Diseases Progress Note Pt. Name/Age/: Estefani Tilley 73 y.o. 1945 Med. Record Number: [id number] Date of admission: 03/24/2019 Patient admitted with thoracic vertebral discitis/osteomyelitis Date of service: 03/30/2019 Subjective: The patient chart and medications were reviewed in detail and the patient was s een and examined. Patient with mid and low back pain. It's a bit improved over the past couple days. She is walking without significant difficulty. She's having no fevers. She's not short of breath . She has no abdominal pain or diarrhea. She has no new rash. Medications: Antibiotics Vancomycin Cefepime Objective: Physical Exam: Wt. Admission: Weight: 63.5 kg (140 lb) Wt. Current: Weight: 63.7 kg (140 lb 6.9 oz) Temp: [36.2 C (97.2 F)-36.8 C (98.2 F)] 36.5 C (97.7 F) Pulse: [64-79] 71 Resp: [16-18] 16 BP: (108-192)/(48-85) 108/48 General: Alert and appears comfortable HEENT: Sclera and conjunctive are clear, OP mucosa clear Cardiovascular: Regular rate and rhythm, unchanged Respiratory: Clear to auscultation, no respiratory distress Abdomen: Positive bowel sounds, soft, no tenderness Extremities/Musculoskeletal: Fistula present in right arm. No peripheral stigmata of endoc arditis or emboli. No peripheral cyanosis Skin: Dry, warm, without rash Neurological: Oriented x3, motor grossly intact Psychiatric: Affect and thought content are normal. Lab: Recent Results (from the past 24 hour(s)) POC Glucose Result Value Ref Range Glucose, POC 95 65 - 99 mg/dL POC Glucose Result Value Ref Range Glucose, POC 152 (H) 65 - 99 mg/dL POC Glucose Result Value Ref Range Glucose, POC 91 65 - 99 mg/dL POC Glucose Result Value Ref Range Glucose, POC 157 (H) 65 - 99 mg/dL CBC with Manual Differential Result Value Ref Range WBC 4.43 3.80 - 11.00 K/uL RBC 3.12 (L) 3.70 - 5.10 M/uL Hemoglobin 10.3 (L) 11.3 - 15.5 g/dL Hct 31.6 (L) 34.0 - 46.0 % MCV 101.3 (H) 80.0 - 100.0 fL MCH 33.0 27.0 - 34.0 pg MCHC 32.6 32.0 - 35.5 g/dL RDW-CV 15.0 11.0 - 15.5 % Platelet Count 174 150 - 400 K/uL MPV 9.8 9.3 - 12.7 fL % Neutrophils 64.0 38.0 - 70.0 % % Lymphocytes 26.0 15.0 - 48.0 % % Monocytes 5.0 0.0 - 12.0 % % Eosinophils 3.0 0.0 - 7.0 % % Basophils 2.0 0.0 - 2.0 % Absolute Neutrophils 2.84 1.80 - 7.70 K/uL Absolute Lymphocytes 1.15 1.00 - 3.90 K/uL Absolute Eosinophils 0.13 0.00 - 0.50 K/uL Absolute Basophils 0.09 0.00 - 0.10 K/uL Absolute Monocytes 0.22 0.00 - 0.80 K/uL Platelet Estimate Adequate RBC Macrocytes 1+ Total Counted 100 Basic Metabolic Panel Result Value Ref Range Na 137 135 - 145 mmol/L K 3.5 3.5 - 5.0 mmol/L Cl 102 99 - 109 mmol/L CO2 29 (H) 21 - 28 mmol/L Anion Gap 6 5 - 16 mmol/L Ca 7.7 (L) 8.5 - 10.2 mg/dL BUN 10 8 - 25 mg/dL Creatinine 2.79 (H) 0.50 - 1.00 mg/dL Glucose 86 65 - 99 mg/dL Estimated GFR 16 (L) >=90 mL/min/1.73m2 Magnesium Result Value Ref Range Magnesium 1.9 1.7 - 2.4 mg/dL Phosphorus Result Value Ref Range Phosphorus 3.4 2.6 - 4.4 mg/dL Assessment and Plan: #1 thoracic vertebral osteomyelitis/discitis T11-T12 No evidence epidural abscess White count 4.43 No significant evidence vancomycin toxicity Temperature on admission, no fever no Underwent aspiration/biopsy Stains negative Final bacterial culture negative. AFB and fungal cultures pending. Neurologically stable Bit improved over the past several days. Of note, recent CRP is 0.8. On empiric vancomycin and cefepime Well-tolerated Continue antibiotics Anticipating 6 weeks intravenous antibiotics via secure access with weekly CBC, BMP, CRP, V anco trough Watch closely, may still merit surgical intervention If cultures negative, anticipate empiric therapy #2 fever Resolved #3 reports penicillin allergy Cephalosporins well tolerated #4 end-stage renal disease Dialysis At risk for nosocomial pathogens Broad empiric therapy Doses adjusted #5 diabetes mellitus Requires optimal control Electronically signed by: Jesus Whitney, 03/30/2019 7:15 [facility] Mary Wade RN - 03/30/2019 6:16 AM PDT 5N Nursing Handoff Note Room # 501/501-02 ISO: None Full Code Item for assessment: RN Comments: Shift Summary: Pt is alert and oriented. Complains of pain and medicated with 2 tabs of oxycodone with go od results. Right arm fistula appears clean and no discharge noted. She will be in 6 weeks o f IV antibiotic therapy. Planning to discharge to SNF. Diagnosis: Discitis of thoracic region Mobility/Falls: Activity Level of Assistance: modified independence All Alarms: none present Valerio Fall Risk Level: High Barriers to Discharge: LDAs: VTE Prophylaxis: Venous Thromboembolism Prevention: patient refused intervention(s) Last Bowel Movement: Stool Occurrence: 1(pt reported) (03/27/19 368) Active Infusions: dextrose 10% Skin: Skin Integrity: incision(s), tattoo(s) Skin Integrity Comment: (right elbow skin tear ) Last Notification: Provider Name/Title: Hospitalist (03/27/191947) Reason for Communication: Review case(Nahid Tillman order) (03/27/191947) Response: No new orders (03/27/191947) Mentation/CAM: CAM Score: no Therapy Involved: Physical [] Occupational [] Speech [] Resp [] Rec [] Dialysis: HD [] PD [] Diet: Diet/Nutrition Prescription: renal, consistent carb Pain Management: C-SSRS Since you were last asked, have you actually had thoughts about killing yourself? : No Have you been thinking about how you might kill yourself? : No Have you had these thoughts and had some intention of acting on them? : No Have you started to work out or worked out the details of how to kill yourself? Do you inte nd to carry out this plan? : No Have you done anything, started to do anything, or prepared to do anything to end your life ?: No Describe: : pt has no suicidal intention has depression wishful of Monitoring Requirements [facility] Suicide Policy [facility] Suicide Risk/Telesitter Screening Utilizing this rating scale, the suicidal patient will be monitored in the following manner : [] Score <=2 "yes" responses, Patient does not require observation [] Score =3 "yes" responses, Patient can be observed using a Telesitter [] Score >=4 "yes" responses, Patient requires in person continual visual observation Appropriate interventions were placed based on the above criteria and room preparation will be completed for safety based on suicide observation protocols. Vitals: 03/29/19 1542 03/29/19 1929 03/30/19 0000 03/30/19 0500 BP: 138/65 134/67 108/48 Pulse: 74 77 71 Resp: 16 18 16 Temp: 36.8 C (98.2 F) 36.4 C (97.6 F) 36.5 C (97.7 F) TempSrc: Temporal Temporal SpO2: 98% 98% 95% Weight: 60 kg (132 lb 4.4 oz) 63.7 kg (140 lb 6.9 oz) Height: Component Value Date/Time POCGLU 157 (H) 03/29/2019 2109 POCGLU 91 03/29/2019 1850 POCGLU 152 (H) 03/29/2019 1224 POCGLU 95 03/29/2019 0912 POCGLU 113 (H) 12/09/2018 1805 POCGLU 175 (H) 12/09/2018 1154 POCGLU 117 (H) 12/09/2018 0609 POCGLU 112 (H) 12/08/2018 0650 Merry Hess EMU FARMER - 03/29/2019 4:18 PM PDTSOCIAL WORK D/C PLAN:SNF: [facility] NEXT STEPS:Await bed availability INTERVENTION: SW called and spoke with admissions person at [facility], they are still discussing pt's case. They will follow up with SW 03/30 regarding decision to accept or decl ine. Admissions person provided SW with [place] Medicaid transportation service to see if pt is e ligible for transportation assistance to SNF. SW will continue to follow for dc planning. ASSESSMENT/CHART REVIEW:73 yr old femalewith a history of ESRD on hemodialysis, hypertens ion, type 2 diabetes, hypothyroidism,chronic anemia,hyperlipidemia, hx of stroke [facility] [place] [facility] noted on MRI concerning fo r osteomyelitis. SW met with pt's sister, Yina, and her cousin, Keri, who were waiting in pt's room while s he was in dialysis. SW will need to follow up with pt re: d/c planning. Pt's sister and cousin related that pt mostly lives at Yina's house outside [place], [place], but does not like to be tied down because she enjoys attending [place] festivals and many events. She does at tend dialysis weekly. Pt has a vehicle and is very independent. D/C TRANSPORT:tbd BARRIERS TO D/C:none CONTACTS: Yina La: sister India Tilley: sister [place] Medicaid Transportation: [facility]: [phone] fax: [phone] [facility] [phone] signed by JENNIFER Contreras at 03/29/2019 4:20 PM PDTHsu, Randy Nunez MD - 03/29/2019 12:32 PM PDT [facility] INPATIENT ROUNDING NOTE Date of Service: 03/29/2019 Rounding Physician: Randy Corrigan MD Patient Name: Estefani Tilley : 1945 Medical Record: [id number] Hospital Summary: Estefani Tilley is a 73 y.o. female with a PMHx of ESRD, HTN, Dm type 2, hypothyroidism, HLd, CVA who is under the care of Dr Muñoz at [facility] who dialyzes MWF admitted with possible osteo disccitis t11/t12 ASSESSMENT AND PLAN 1. ESRD/HD dependent Access is LUE AVF working well Seen on HD tolerating well No edema Hand veins distended however UF 2L 2. Anemia Hg at goal of 9-11 3. HTN Hard to control 4. BMM On Hectoral Po4 is elevated Started phoslo SUBJECTIVE: Patient seen on HD Doing ok Pain is improving Denies CP or SOB Tolerating HD well Review of Symptoms: A complete ROS was performed with all others negative x 10 systems Scheduled Meds: aspirin 81 mg Oral Daily calcium acetate 667 mg Oral TID WC cefepime 1 g Intravenous Daily cholecalciferol 4,000 Units Oral Daily doxercalciferol 0.5 mcg Oral Once per day on Wed furosemide 80 mg Oral Daily hydrALAZINE 25 mg Oral BID insulin lispro 0-12 Units Subcutaneous 4x Daily WC and HS labetalol 200 mg Oral BID levothyroxine 75 mcg Oral QAM AC lidocaine 1 patch Transdermal Daily losartan 100 mg Oral Daily NIFEdipine 90 mg Oral Daily olopatadine 1-2 drop Both Eyes BID pantoprazole 40 mg Oral QAM AC probiotic 1 capsule Oral BID vancomycin 750 mg Intravenous Once vancomycin per pharmacy Other Pharmacy Consult Continuous Infusions: dextrose 10% OBJECTIVE Vitals Current 24 hour Min/Max BP 159/78 BP Min: 141/66 Max: 192/68 HR 72 Pulse Min: 60 Max: 73 Temp 36.2 C (97.2 F) Temp Min: 35.9 C (96.6 F) Max: 36.4 C (97.5 F) RR 16 Resp Min: 16 Max: 16 Sats SpO2: 99 % on L/min room air SpO2 Min: 95 % Max: 99 % 03/28 0701 - 03/29 0700 In: 480 [P.O.:480] Out: - AOx3 JVp not elevated Chest is clear CVS RRR Abdomen Nt Ext no edema LUE AVF with good bruit and thrill Recent Labs Lab 03/29/19 0503/28/19 0458 03/26/19 0411 WBC 4.55 4.25 4.57 HGB 10.2* 9.9* 10.2* HCT 31.8* 30.8* 32.1* PLT 172 171 179 Recent Labs Lab 03/29/19 0503/28/19 0458 03/26/19 1144 03/26/19 0411 03/25/19 0918 03/24/19 0518 03/23/19 1903 NA 137 136 -- 133* 135 141 137 K 4.1 4.0 -- 4.3 5.0 4.4 4.2 CL 103 102 -- 99 101 105 101 CO2 28 28 -- 27 28 27 30 BUN 19 12 -- 19 14 19 18 CREA 4.14* 3.12* -- 3.82* 3.01* 4.02* 3.78* CALCIUM 8.1* 8.0* -- 8.2* 8.0* 7.9* 8.5* PHOS -- -- 5.6* -- -- -- -- ALBUMIN -- -- -- -- -- -- 3.6 Diagnostic Studies: Available data and images were reviewed personally. Significant results and findings are ad dressed here or in the Assessment and Plan. Please feel free to contact me with any questions Electronically signed by: Trace Corrigan MD, 03/29/2019, 12:32 after, Michelle Taylor, - 03/29/2019 12:12 PM PDT Patient: Estefani Tilley Date of : 1945 Admit Date: 03/24/2019 Date of Service: 03/29/2019 PCP: Francisca Womack PA-C Hospital Day: Hospital Day: 6 Hospital Course: 73-year-old female with history of ESRD on hemodialysis, hypertension, type 2 diabetes, hyp othyroidism, chronic anemia, hyperlipidemia with a history of stroke transferred from [facility] [place] for evaluation of T11-T12 lesion noted on MRI concerning for osteomyeliti s. Infectious disease consulted. She underwent CT guided aspiration from her thoracic spine on 03/24, Gram stain and bacterial cultures negative. AFP and fungal cultures preliminarily negative, but finalization still pending. ID is following. Infectious parameters improving some, with CRP down to 0.8 03/29. Patient started on empiric vancomycin and cefepime 03/24 w ith plans to complete 6 weeks of IV antibiotics (likely through 05/04), if all cultures remai n NGTD. Tunneled PICC was placed 03/28. She will d/c to SNF when medically ready. SW arranging placement, awaiting to hear from [facility] in [place] regarding possible acceptance. May be able to d/c medically over the next 24-48 hours, pending ID clearance. She is a chronic dialysis patient, Nephrology is following for ongoing dialysis needs. She will need three times weekly dialysis while at SNF as well. SW to help determine transportation and help arrange any further dialysis nee ds prior to d/c. Assessment and Plan: Assessment of active problems addressed today: Osteomyelitis/Discitis of T11, T12 vertebra -MRI spine 03/23/19: "mild paravertebral soft tissue thickening and enhancement, no fluid si gnal throughout the disc which would be atypical for osteo/discitis, which would be atypical strictly for degenerative related changes." -Afebrile, improved WBC count, improved CRP down to 0.8 on 03/29, from 1.5 on 03/25 -S/p aspiration T11/T12 spine by IR on 03/24, Gram stain and bacterial cultures negative -Fungal stains prelim negative, finalization of fungal cultures still pending -Blood cultures x 2 negative -Fistula site appears clean, not erythematous, no e/o infection -TTE negative for e/o endocarditis -Infectious disease consulting -Continue vancomycin and cefepime - plan for 6 week course of IV abx - through 05/04 -Vanc trough 18.6 today -Will need weekly CBC, CMP and CRP while on antibiotic therapy -Tunneled right picc placed 03/28 -Continue probiotic -Pain controlled with oxycodone - no use of IV dilaudid for a few days, will d/c from Nov. Hypertension BP improved overall into the 140-160 range, from 160-180s prior -Continue home medications: labetalol 200 mg BID, losartan 100 mg daily -Continue hydralazine 25 mg BID (added this admission) -Increase home nifedipine from 60 mg daily up to 90 mg daily today for improved BP control -Prn hydralazine added -Monitor blood pressure Diabetes -Blood sugar stable in the low to mid 100 range (within hospital goals) -No medication therapy -Continue insulin sliding scale -Continue 90 g CHO per meal ESRD on hemodialysis -Nephrology consulted, help appreciated -Continue dialysis and management per nephrology -Has RUE fistula -Chronic dialysis patient - has OP clinic in [place] already ---> will need SW to help cathy ferrera with SNF facility, how she will get to dialysis on outpatient basis while at SNF Macrocytic anemia likely secondary to-likely anemia of chronic disease No concern for bleeding Epogen per nephrology B12 and folic acid within normal Continue to monitor hemoglobin Hypothyroidism Home levothyroxine Active Hospital Problems Diagnosis probable Discitis of thoracic region ESRD (end stage renal disease) on dialysis DM (diabetes mellitus), type 2 Macrocytic anemia Essential hypertension Hyperlipidemia DJD (degenerative joint disease) Resolved Hospital Problems No resolved problems to display. I have reviewed and updated the problem list. Disposition: TBD - SW arranging SNF - awaiting to hear back from [facility] in [place], [place] regarding possible acceptance there. Could possibly d/c 03/30 medically, if OK with ID, and if SNF accepted and insurance authorization has been obtained CODE STATUS: Full Code DVT prophylaxis: Anticoagulants Salicylates aspirin EC tablet 81 mg 81 mg, Oral, DAILY, Do not cut or crush. Subjective: CC: Patient appears comfortable. She is seen in dialysis. She is feeling well overall, no fevers or chills. Back pain is improving. No nausea, no new rash. More interactive today . She is a bit tearful and frustrated this AM regarding duration of antibiotic therapy that i s recommended, however, she is agreeable, as she wants infection completely treated. She is willing to go to SNF for IV abx. ROS Denies abdominal pain, N/V, denies fevers or chills. Objective: Vital Signs 03/27 700 - 03/28 0659 03/28 07 - 03/29 0659 03/29 700 - 03/29 1213 Most Rec ent Temp (C) 35.8 - 37.4 35.9 - 36.4 36.2 - 36.4 36.2 (97.2) Pulse 55 - 78 60 - 73 64 - 72 72 Resp 16 - 18 16 16 16 BP 129/53 - 204/78 141/66 - 166/75 159/78 - 192/68 159/78 SpO2 (%) 94 - 100 95 - 99 97 - 99 99 Weight (kg) 62 62 kg (136 lb 11 oz) I/O last 3 completed shifts: In: 720 [P.O.:720] Out: - Wt Readings from Last 3 Encounters: 03/29/19 62 kg (136 lb 11 oz) 03/23/19 66.7 kg (147 lb) 02/03/19 70.8 kg (156 lb) Active Lines CVC Line Tunneled Central Line - Double Lumen 03/28/19 1451 internal jugular vein, right less than 1 day PIV Line Peripheral IV Line - Single Lumen 03/24/19 2143 Left Lateral Forearm [facility] ter system 20 gauge;1 1/4 in length 4 days Line Hemodialysis AV Access 01/04/18 fistula upper arm, right 449 days Active Tubes/Drains None Physical Exam Constitutional: No distress. Head: Normocephalic and atraumatic. Eyes: Conjunctivae and EOM are normal. Pupils are equal, round, and reactive to light. ENT/Mouth: oral mucosa is moist. Neck: Normal range of motion. Neck supple. Cardiovascular: Normal rate and regular rhythm. Right tunneled PICC. Pulmonary/Chest: Normal Work of breathing, breath sounds normal. No wheeze, no rhonchi. Abdominal: Soft, non tender, non distended, Bowel sounds are present. There is no rebound a nd no guarding. Back: tenderness to palpation in the lower thoracic and upper lumbar vertebral region with paraspinal tenderness. Musculoskeletal: There is no edema. Neurological: There are no focal neurologic deficit. Psychiatric: AAOX 2 Skin: warm and dry. Right upper extremity AV fistula Medications: aspirin 81 mg Oral Daily calcium acetate 667 mg Oral TID WC cefepime 1 g Intravenous Daily cholecalciferol 4,000 Units Oral Daily doxercalciferol 0.5 mcg Oral Once per day on Wed furosemide 80 mg Oral Daily hydrALAZINE 25 mg Oral BID insulin lispro 0-12 Units Subcutaneous 4x Daily WC and HS labetalol 200 mg Oral BID levothyroxine 75 mcg Oral QAM AC lidocaine 1 patch Transdermal Daily losartan 100 mg Oral Daily NIFEdipine 90 mg Oral Daily olopatadine 1-2 drop Both Eyes BID pantoprazole 40 mg Oral QAM AC probiotic 1 capsule Oral BID vancomycin 750 mg Intravenous Once vancomycin per pharmacy Other Pharmacy Consult 24 HOUR LABS: Recent Results (from the past 24 hour(s)) POC Glucose Result Value Ref Range Glucose, POC 144 (H) 65 - 99 mg/dL Basic Metabolic Panel Result Value Ref Range Na 137 135 - 145 mmol/L K 4.1 3.5 - 5.0 mmol/L Cl 103 99 - 109 mmol/L CO2 28 21 - 28 mmol/L Anion Gap 6 5 - 16 mmol/L Ca 8.1 (L) 8.5 - 10.2 mg/dL BUN 19 8 - 25 mg/dL Creatinine 4.14 (H) 0.50 - 1.00 mg/dL Glucose 97 65 - 99 mg/dL Estimated GFR 10 (L) >=90 mL/min/1.73m2 C-Reactive Protein Result Value Ref Range CRP 0.8 0.0 - 1.5 mg/dL CBC with Manual Differential Result Value Ref Range WBC 4.55 3.80 - 11.00 K/uL RBC 3.12 (L) 3.70 - 5.10 M/uL Hemoglobin 10.2 (L) 11.3 - 15.5 g/dL Hct 31.8 (L) 34.0 - 46.0 % MCV 101.9 (H) 80.0 - 100.0 fL MCH 32.7 27.0 - 34.0 pg MCHC 32.1 32.0 - 35.5 g/dL RDW-CV 14.8 11.0 - 15.5 % Platelet Count 172 150 - 400 K/uL MPV 9.9 9.3 - 12.7 fL % Neutrophils 64.0 38.0 - 70.0 % % Lymphocytes 28.0 15.0 - 48.0 % % Monocytes 3.0 0.0 - 12.0 % % Eosinophils 5.0 0.0 - 7.0 % % Basophils 0.0 0.0 - 2.0 % Absolute Neutrophils 2.91 1.80 - 7.70 K/uL Absolute Lymphocytes 1.27 1.00 - 3.90 K/uL Absolute Eosinophils 0.23 0.00 - 0.50 K/uL Absolute Basophils 0.00 0.00 - 0.10 K/uL Absolute Monocytes 0.14 0.00 - 0.80 K/uL Platelet Estimate Adequate RBC Macrocytes 1+ Total Counted 100 Vancomycin Level Result Value Ref Range Vancomycin Random 18.6 ug/mL POC Glucose Result Value Ref Range Glucose, POC 95 65 - 99 mg/dL Glucose, POC Date/Time Value Ref Range Status 03/29/2019 09:12 95 65 - 99 mg/dL Final Comment: Performed by [place] [address] [facility] [facility] [place] [address] 03/28/2019 21:06 144 (H) 65 - 99 mg/dL Final Comment: Performed by [address] [facility] [place] [address] 03/28/2019 11:22 119 (H) 65 - 99 mg/dL Final Comment: Performed by [place] [address] [place] [id number] 12/09/2018 18:05 113 (H) 70 - 109 mg/dL Final 12/09/2018 11:54 175 (H) 70 - 109 mg/dL Final 12/09/2018 06:09 117 (H) 70 - 109 mg/dL Final All pertinent labs and imaging have been reviewed. Please refer to the Assessment and Plan for details on management. I spent 30 minutes with the patient and on the patient's unit, with over 50% spent in coun seling and/or coordination of care. Please refer to the Assessment and Plan for details. Electronically signed by: Michelle Lopez DO 03/29/2019 12:13 Portions of this chart may have been created with Cell-[employer]Spot voice recognition software. Occasi onal wrong-word or sound-alike substitutions may have occurred due to the inherent mckeon itations of voice recognition software. Please read the chart carefully and recognize, using context, where these substitutions have occurred Zari Simmons P harmD - 03/29/2019 9:36 AM PDT Pharmacy Progress Note VANCOMYCIN PER PHARMACY PROTOCOL: Day 6 Estefani Tilley is a 73 y.o. female receiving vancomycin for the treatment of osteomyelit is Assessment/Plan: 1. RL 18.6, vancomycin dosed at 750mg X1 today after dialysis 2. Target Trough: 15-20 mcg/ml 3. Random vancomycin level ordered for 03/31 with AM labs 4. Pharmacy to monitor daily and adjust dosage per protocol Subjective/Objective: Other antibiotics: cefepime Blood pressure 192/68, pulse 64, temperature 36.4 C (97.5 F), resp. rate 16, height 1.7 27 m (5' 8"), weight 62 kg (136 lb 11 oz), SpO2 97 %. Min/Max Temp past 24 hours:Temp Av.2 C (97.1 F) Min: 35.9 C (96.6 F) Max: 3 6.4 C (97.5 F) Recent Labs Lab 03/29/19 0519 03/28/19 0458 WBC 4.55 4.25 CREA 4.14* 3.12* BUN 19 12 Estimated Creatinine Clearance: 12 mL/min (A) (based on SCr of 4.14 mg/dL (H)). Lab Results Component Value Date/Time VANCORANDOM 18.6 03/29/2019 05:19 I/O last 3 completed shifts: In: 720 [P.O.:720] Out: - No intake/output data recorded. Micro/Cultures: BCx - NGTD, BiopsyCx - NGTD Per P&T-approved Vancomycin Protocol Electronically signed by: Zari Mitchell PharmD 03/29/2019 9:36 Jesus Wade MD - 03/29/2019 7:35 A M PDT Infectious Diseases Progress Note Pt. Name/Age/: Estefani Tilley 73 y.o. 1945 Med. Record Number: [id number] Date of admission: 03/24/2019 Patient admitted with thoracic vertebral discitis/osteomyelitis Date of service: 03/29/2019 Subjective: The patient chart and medications were reviewed in detail and the patient was s een and examined. Mid thoracic back pain is unchanged over the last day. Its moderate. She is moving all ex tremities without difficulty. She is having no fevers. She is not short of breath. Nausea is better. Medications: Antibiotics Vancomycin Cefepime Objective: Physical Exam: Wt. Admission: Weight: 63.5 kg (140 lb) Wt. Current: Weight: 62 kg (136 lb 11 oz) Temp: [35.9 C (96.6 F)-36.4 C (97.5 F)] 36.4 C (97.5 F) Pulse: [60-73] 60 Resp: [16] 16 BP: (141-166)/(66-75) 158/69 General: Alert and in no major distress HEENT: Sclera and conjunctive are clear, oral mucosa clear Cardiovascular: Regular rate and rhythm Respiratory: Clear to auscultation, normal respiratory effort Abdomen: Positive bowel sounds, soft, nontender Extremities/Musculoskeletal: Fistula present in right arm. No peripheral stigmata of endoc arditis or emboli. Skin: Dry, warm, no rash Neurological: Oriented x3, motor intact Psychiatric: Affect and thought content are appropriate. Lab: Recent Results (from the past 24 hour(s)) POC Glucose Result Value Ref Range Glucose, POC 119 (H) 65 - 99 mg/dL POC Glucose Result Value Ref Range Glucose, POC 144 (H) 65 - 99 mg/dL Basic Metabolic Panel Result Value Ref Range Na 137 135 - 145 mmol/L K 4.1 3.5 - 5.0 mmol/L Cl 103 99 - 109 mmol/L CO2 28 21 - 28 mmol/L Anion Gap 6 5 - 16 mmol/L Ca 8.1 (L) 8.5 - 10.2 mg/dL BUN 19 8 - 25 mg/dL Creatinine 4.14 (H) 0.50 - 1.00 mg/dL Glucose 97 65 - 99 mg/dL Estimated GFR 10 (L) >=90 mL/min/1.73m2 C-Reactive Protein Result Value Ref Range CRP 0.8 0.0 - 1.5 mg/dL CBC with Manual Differential Result Value Ref Range WBC 4.55 3.80 - 11.00 K/uL RBC 3.12 (L) 3.70 - 5.10 M/uL Hemoglobin 10.2 (L) 11.3 - 15.5 g/dL Hct 31.8 (L) 34.0 - 46.0 % MCV 101.9 (H) 80.0 - 100.0 fL MCH 32.7 27.0 - 34.0 pg MCHC 32.1 32.0 - 35.5 g/dL RDW-CV 14.8 11.0 - 15.5 % Platelet Count 172 150 - 400 K/uL MPV 9.9 9.3 - 12.7 fL % Neutrophils 64.0 38.0 - 70.0 % % Lymphocytes 28.0 15.0 - 48.0 % % Monocytes 3.0 0.0 - 12.0 % % Eosinophils 5.0 0.0 - 7.0 % % Basophils 0.0 0.0 - 2.0 % Absolute Neutrophils 2.91 1.80 - 7.70 K/uL Absolute Lymphocytes 1.27 1.00 - 3.90 K/uL Absolute Eosinophils 0.23 0.00 - 0.50 K/uL Absolute Basophils 0.00 0.00 - 0.10 K/uL Absolute Monocytes 0.14 0.00 - 0.80 K/uL Platelet Estimate Adequate RBC Macrocytes 1+ Total Counted 100 Vancomycin Level Result Value Ref Range Vancomycin Random 18.6 ug/mL Assessment and Plan: #1 thoracic vertebral osteomyelitis/discitis T11-T12 No evidence epidural abscess White count 4.55, creatinine 4.14 No significant evidence vancomycin toxicity Temperature on admission, no fever no Underwent aspiration/biopsy Stains negative Final bacterial culture negative. AFB and fungal cultures pending. Neurologically stable Bit improved over the past several days. Of note, CRP is 0.8. On empiric vancomycin and cefepime Well-tolerated Continue antibiotics Anticipating 6 weeks intravenous antibiotics via secure access with weekly CBC, BMP, CRP, V anco trough Watch closely, may still merit surgical intervention If cultures negative, anticipate empiric therapy #2 fever Likely related to above Down over last 72 hours #3 reports penicillin allergy Cephalosporins well tolerated #4 end-stage renal disease Dialysis At risk for nosocomial pathogens Broad empiric therapy Doses adjusted #5 diabetes mellitus Requires optimal control Electronically signed by: Jesus Whitney, 03/29/2019 7:35 [facility] zech, Carolina Restrepo RN - 03/28/2019 7:08 PM [id number] - Report called to [facility] RN. Pt's belongings . I pad and I phone w/ chargers as well as pt's purse, and shoes, and shirt and pants all sent with her to [address] [place] [address]. Pt had been sitting up eating dinner. Ate much better this evening. Ate 40% of h er dinner. Drank 1/2 of her boost. Doing better with much encouragement. Pt appeared sad toshad humphrey, and I spent a lot of time visiting with her. After some time she started crying and darshan ed that she lost her 50 year old daughter this year. She said she of an aneurysm. Pt do ing much better this evening. Smiled off and on and thanked me for time spent with her. Noti fied [address] [place] [address] RN of pt's recent loss. Transferred at 1900 via with all her belongings. Nelda ctronically signed by: Carolina Jessica RN 03/28/2019 19:23 afterMichelle D O - 03/28/2019 3:55 PM PDT Patient: Estefani Tilley Date of : 1945 Admit Date: 03/24/2019 Date of Service: 03/28/2019 PCP: Francisca Womack PA-C Hospital Day: Hospital Day: 5 Hospital Course: 73-year-old female with history of ESRD on hemodialysis, hypertension, type 2 diabetes, hyp othyroidism, chronic anemia, hyperlipidemia with a history of stroke transferred from [facility] [place] for evaluation of T11-T12 lesion noted on MRI concerning for osteomyeliti s. Infectious disease consulted. She underwent CT guided aspiration from her thoracic spine on 03/24, Gram stain and cultures negative. Patient started on empiric vancomycin and cefepi me with plans to complete 6 weeks of IV antibiotics (likely through 05/04). She will get vania neled PICC today for IV access. Nephrology is following for diuresis needs. She will d/c to SNF when medically ready. SW arranging placement. Assessment and Plan: Assessment of active problems addressed today: Osteomyelitis/Discitis of T11, T12 vertebra Afebrile, improved WBC count, improved CRP Status post aspiration from her thoracic spine 03/24, Gram stain and cultures negative Infectious disease consulting TTE negative Continue vancomycin and cefepime - plan for 6 week course of IV abx Patient will need IV antibiotics for 6 weeks - likely through 05/04, will clarify start date with ID Continue probiotic Will have tunneled PICC placed today by IR Pain management -trial of lidocaine patch today, continue PRN oxycodone and Dilaudid Hypertension BP improved overall into the 140s, from 160+ range prior Continue home medications-labetalol 200 mg twice daily, losartan 100 mg daily, nifedipine 6 0 mg daily Increased hydralazine stared on 03/26 from to 25mg BID Prn hydralazine added Monitor blood pressure Diabetes Blood sugar stable, possibly even over-treated Patient is not on any medications Continue insulin sliding scale Increase diet to 90 g CHO per meal Monitor blood sugar ESRD on hemodialysis nephrology consulted, help appreciated continue dialysis and management per hemodialysis Macrocytic anemia likely secondary to-likely anemia of chronic disease No concern for bleeding Epogen per nephrology B12 and folic acid within normal Continue to monitor hemoglobin Hypothyroidism Home levothyroxine Active Hospital Problems Diagnosis probable Discitis of thoracic region ESRD (end stage renal disease) on dialysis DM (diabetes mellitus), type 2 Macrocytic anemia Essential hypertension Hyperlipidemia DJD (degenerative joint disease) Resolved Hospital Problems No resolved problems to display. I have reviewed and updated the problem list. Disposition: TBD - SW arranging SNF - possibly medically ready for d/c in the next 1-2 days CODE STATUS: Full Code DVT prophylaxis: Anticoagulants Salicylates aspirin EC tablet 81 mg 81 mg, Oral, DAILY, Do not cut or crush. Subjective: CC: Patient appears comfortable. Has flat affect, but otherwise pleasant and not combative . ROS Denies abdominal pain, N/V, denies fevers or chills. Feels fine per her report. Objective: Vital Signs 03/26 700 - 03/27 0659 03/27 07 - 03/28 0659 03/28 07 - 03/28 1555 Most Rec ent Temp (C) 36.1 - 36.4 35.8 - 37.4 36.3 36.3 (97.3) Pulse 60 - 64 55 - 78 64 - 69 69 Resp 16 - 17 16 - 18 16 16 BP 132/54 - 189/68 129/53 - 204/78 141/66 - 165/63 141/66 SpO2 (%) 91 - 99 94 - 100 97 - 99 99 I/O last 3 completed shifts: In: 680 [P.O.:680] Out: 2000 Wt Readings from Last 3 Encounters: 03/24/19 62 kg (136 lb 11 oz) 03/23/19 66.7 kg (147 lb) 02/03/19 70.8 kg (156 lb) Active Lines CVC Line Tunneled Central Line - Double Lumen 03/28/19 1451 internal jugular vein, right less than 1 day PIV Line Peripheral IV Line - Single Lumen 03/24/19 2143 Left Lateral Forearm nlox-smv-ldwzts daniel ter system 20 gauge;1 1/4 in length 3 days Line Hemodialysis AV Access 01/04/18 fistula upper arm, right 448 days Active Tubes/Drains None Physical ExamConstitutional: No distress. Head: Normocephalic and atraumatic. Eyes: Conjunctivae and EOM are normal. Pupils are equal, round, and reactive to light. ENT/Mouth: oral mucosa is moist. Neck: Normal range of motion. Neck supple. Cardiovascular: Normal rate and regular rhythm. Pulmonary/Chest: Normal Work of breathing, breath sounds normal. No wheeze, no rhonchi. Abdominal: Soft, non tender, non distended, Bowel sounds are present. There is no rebound a nd no guarding. Back: tenderness to palpation in the lower thoracic and upper lumbar vertebral region with paraspinal tenderness. Musculoskeletal: There is no edema. Neurological: There are no focal neurologic deficit. Psychiatric: AAOX 2 Skin: warm and dry. Right upper extremity AV fistula Medications: aspirin 81 mg Oral Daily calcium acetate 667 mg Oral TID WC cefepime 1 g Intravenous Daily cholecalciferol 4,000 Units Oral Daily doxercalciferol 0.5 mcg Oral Once per day on Wed furosemide 80 mg Oral Daily hydrALAZINE 25 mg Oral BID insulin lispro 0-12 Units Subcutaneous 4x Daily WC and HS labetalol 200 mg Oral BID levothyroxine 75 mcg Oral QAM AC lidocaine 1 patch Transdermal Daily losartan 100 mg Oral Daily NIFEdipine 60 mg Oral Daily olopatadine 1-2 drop Both Eyes BID pantoprazole 40 mg Oral QAM AC probiotic 1 capsule Oral BID vancomycin per pharmacy Other Pharmacy Consult 24 HOUR LABS: Recent Results (from the past 24 hour(s)) POC Glucose Result Value Ref Range Glucose, POC 138 (H) 65 - 99 mg/dL POC Glucose Result Value Ref Range Glucose, POC 109 (H) 65 - 99 mg/dL CBC no Differential Result Value Ref Range WBC 4.25 3.80 - 11.00 K/uL RBC 3.07 (L) 3.70 - 5.10 M/uL Hemoglobin 9.9 (L) 11.3 - 15.5 g/dL Hct 30.8 (L) 34.0 - 46.0 % MCV 100.3 (H) 80.0 - 100.0 fL MCH 32.2 27.0 - 34.0 pg MCHC 32.1 32.0 - 35.5 g/dL RDW-CV 14.9 11.0 - 15.5 % Platelet Count 171 150 - 400 K/uL MPV 10.1 9.3 - 12.7 fL Basic Metabolic Panel Result Value Ref Range Na 136 135 - 145 mmol/L K 4.0 3.5 - 5.0 mmol/L Cl 102 99 - 109 mmol/L CO2 28 21 - 28 mmol/L Anion Gap 6 5 - 16 mmol/L Ca 8.0 (L) 8.5 - 10.2 mg/dL BUN 12 8 - 25 mg/dL Creatinine 3.12 (H) 0.50 - 1.00 mg/dL Glucose 83 65 - 99 mg/dL Estimated GFR 14 (L) >=90 mL/min/1.73m2 POC Glucose Result Value Ref Range Glucose, POC 75 65 - 99 mg/dL POC Glucose Result Value Ref Range Glucose, POC 119 (H) 65 - 99 mg/dL Glucose, POC Date/Time Value Ref Range Status 03/28/2019 11:22 119 (H) 65 - 99 mg/dL Final Comment: Performed by [facility] [address] [place] [address] 03/28/2019 07:09 75 65 - 99 mg/dL Final Comment: Performed by [facility] [address] [place] [address] 03/27/2019 20:38 109 (H) 65 - 99 mg/dL Final Comment: Performed by [facility] [address] [place] [address] 12/09/2018 18:05 113 (H) 70 - 109 mg/dL Final 12/09/2018 11:54 175 (H) 70 - 109 mg/dL Final 12/09/2018 06:09 117 (H) 70 - 109 mg/dL Final All pertinent labs and imaging have been reviewed. Please refer to the Assessment and Plan for details on management. I spent 30 minutes with the patient and on the patient's unit, with over 50% spent in coun seling and/or coordination of care. Please refer to the Assessment and Plan for details. Electronically signed by: Michelle Lopez DO 03/28/2019 15:55 Portions of this chart may have been created with [employer]Spot voice recognition software. Occasi onal wrong-word or sound-alike substitutions may have occurred due to the inherent mckeon itations of voice recognition software. Please read the chart carefully and recognize, using context, where these substitutions have occurred Cordell Mcgarry, [facility] - 03/28/2019 2:57 PM PDTSOCIAL WORK D/C PLAN: SNF: [facility] NEXT STEPS: Await bed availability INTERVENTION: On-going dc planning. Rec'd update from [facility]. They confirm they have r ec'd clinical notes and are currently reviewing. SW will follow. ASSESSMENT/CHART REVIEW:73 yr old femalewith a history of ESRD on hemodialysis, hypertens ion, type 2 diabetes, hypothyroidism,chronic anemia,hyperlipidemia, hx of stroke [facility] noted on MRI concerning fo r osteomyelitis. SW met with pt's sister, Yina, and her cousin, Keri, who were waiting in pt's room while s he was in dialysis. SW will need to follow up with pt re: d/c planning. Pt's sister and co usin related that pt mostly lives at Yina's house outside [facility], [place], but does not like to be tied down because she enjoys attending [place] festivals and many events. She does atten d dialysis weekly. Pt has a vehicle and is very independent. D/C TRANSPORT: tbd BARRIERS TO D/C: none CONTACTS: Yina La: sister India Tilley: sister [facility]: [phone] fax: [phone] [facility] [phone] illum, Mario Alberto morales MD - 03/28/2019 7:34 AM PDTFormatting of this note might be different from the maynor lMarianela Infectious Diseases Progress Note Pt. Name/Age/: Estefani Tilley 73 y.o. 1945 Med. Record Number: [id number] Date of admission: 03/24/2019 Patient admitted with thoracic vertebral discitis/osteomyelitis Date of service: 03/28/2019 Subjective: The patient chart and medications were reviewed in detail and the patient was s een and examined. Patient reports pain a bit better again today, feels a bit better overall Some nausea and some nausea no diarrhea. She does not know if the nausea is related to the antibiotics no rash No shortness of breath or cough No tinnitus vertigo No headache, no weakness or numbness Medications: Antibiotics Vancomycin Cefepime Objective: Physical Exam: Wt. Admission: Weight: 63.5 kg (140 lb) Wt. Current: Weight: 62 kg (136 lb 11 oz) Temp: [35.8 C (96.4 F)-37.4 C (99.3 F)] 36.4 C (97.5 F) Pulse: [55-78] 60 Resp: [16-18] 18 BP: (129-204)/(53-78) 148/60 General: Nontoxic, not tachypneic HEENT: No thrush no conjunctival injection Cardiovascular: Respiratory: Clear, no wheezes Abdomen: Soft nontender positive bowel tones do not feel a spleen tip Extremities/Musculoskeletal: No acute synovial changes or hip irritability. Fistula in ri ght upper arm, without inflammatory changes. Skin: No generalized rash or peripheral embolic stigmata Neurological: Awake alert appropriate responsive motor intact Psychiatric: Normal affect, no confusion Lab: Recent Results (from the past 24 hour(s)) POC Glucose Result Value Ref Range Glucose, POC 82 65 - 99 mg/dL POC Glucose Result Value Ref Range Glucose, POC 138 (H) 65 - 99 mg/dL POC Glucose Result Value Ref Range Glucose, POC 109 (H) 65 - 99 mg/dL CBC no Differential Result Value Ref Range WBC 4.25 3.80 - 11.00 K/uL RBC 3.07 (L) 3.70 - 5.10 M/uL Hemoglobin 9.9 (L) 11.3 - 15.5 g/dL Hct 30.8 (L) 34.0 - 46.0 % MCV 100.3 (H) 80.0 - 100.0 fL MCH 32.2 27.0 - 34.0 pg MCHC 32.1 32.0 - 35.5 g/dL RDW-CV 14.9 11.0 - 15.5 % Platelet Count 171 150 - 400 K/uL MPV 10.1 9.3 - 12.7 fL Basic Metabolic Panel Result Value Ref Range Na 136 135 - 145 mmol/L K 4.0 3.5 - 5.0 mmol/L Cl 102 99 - 109 mmol/L CO2 28 21 - 28 mmol/L Anion Gap 6 5 - 16 mmol/L Ca 8.0 (L) 8.5 - 10.2 mg/dL BUN 12 8 - 25 mg/dL Creatinine 3.12 (H) 0.50 - 1.00 mg/dL Glucose 83 65 - 99 mg/dL Estimated GFR 14 (L) >=90 mL/min/1.73m2 POC Glucose Result Value Ref Range Glucose, POC 75 65 - 99 mg/dL Assessment and Plan: #1 thoracic vertebral osteomyelitis/discitis T11-T12 No evidence epidural abscess White count 4.25, creatinine 3.12 vancomycin level 17.7 No significant evidence systemic toxicity Temperature on admission, now down Underwent aspiration/biopsy Stains negative Cultures negative thus far Neurologically stable Pain slightly better again today, feels a bit better today On empiric vancomycin and cefepime Well-tolerated Continue antibiotics Suggest PICC Anticipating 6 weeks intravenous antibiotics via secure access Watch closely, may still merit surgical intervention If cultures negative, anticipate empiric therapy #2 fever Likely related to above Down over last 72 hours #3 reports penicillin allergy Cephalosporins well tolerated #4 end-stage renal disease Dialysis Creatinine 3.12 At risk for nosocomial pathogens Broad empiric therapy Doses adjusted #5 diabetes mellitus Requires optimal control Electronically signed by: Carlos Jansen, 03/28/2019 7:34 [facility] Katey Solis MD - 03/27/2019 8:58 PM PDT Patient: Estefani Tilley Date of : 1945 Admit Date: 03/24/2019 Date of Service: 03/27/2019 PCP: Francisca Womack PA-C Hospital Day: Hospital Day: 4 Hospital Course: 73-year-old female with history of ESRD on hemodialysis, hypertension, type 2 diabetes, hyp othyroidism, chronic anemia, hyperlipidemia with a history of stroke transferred from [facility] for evaluation of T11-T12 lesion noted on MRI concerning for osteomyeliti s. Infectious disease consulted. Status post aspiration from her thoracic spine, Gram stain negative, cultures pending. Rosemary ent started on empiric vancomycin and cefepime. Will need 6 weeks of IV antibiotics. Discussed with nephrology, recommend placement of Tillman catheter instead of PICC line for half-way IV antibiotics. Nephrology following for maintenance hemodialysis. SW following for SNF. Assessment and Plan: Assessment of active problems addressed today: Osteomyelitis/discitis of T11, T12 vertebra Afebrile, improved WBC count, improved CRP Status post aspiration from her thoracic spine, Gram stain negative, cultures pending- [facility] Infectious disease help appreciated Continue vancomycin and cefepime Echocardiogram negative for any endocarditis. Patient will need IV antibiotics for 6 weeks. Continue probiotic Discussed with nephrology, recommend placement of Tillman catheter instead of PICC line for half-way IV antibiotics. Pain management -trial of lidocaine patch today, continue PRN oxycodone and Dilaudid Hypertension BP still high Continue home medications-labetalol 200 mg twice daily, losartan 100 mg daily, nifedipine 6 0 mg daily Increase hydralazine stared on 03/26 from to 25mg BID Prn hydralazine added Monitor blood pressure Diabetes Blood sugar stable Patient is not on any medications Continue insulin sliding scale Monitor blood sugar ESRD on hemodialysis nephrology consulted, help appreciated continue dialysis and management per hemodialysis Macrocytic anemia likely secondary to-likely anemia of chronic disease No concern for bleeding Epogen per nephrology B12 and folic acid within normal Continue to monitor hemoglobin Hypothyroidism Home levothyroxine Plan of care discussed in detail with the patient all questions answered verbalized underst anding and agreed with the same. Active Hospital Problems Diagnosis probable Discitis of thoracic region ESRD (end stage renal disease) on dialysis DM (diabetes mellitus), type 2 Macrocytic anemia Essential hypertension Hyperlipidemia DJD (degenerative joint disease) Resolved Hospital Problems No resolved problems to display. I have reviewed and updated the problem list. Disposition: TBD CODE STATUS: Full Code DVT prophylaxis: Anticoagulants Salicylates aspirin EC tablet 81 mg 81 mg, Oral, DAILY, Do not cut or crush. Subjective: CC: patient seen getting HD, reports improvement in her back pain, she is AAOX 2 today, not oriented to time, afebrile, no other complains ROS A 10 point ROS is otherwise negative unless mentioned in the CC or below. Constitutional: Negative for chills, fever, + malaise/fatigue, generalized weakness Eyes: Negative for blurred vision and double vision. Respiratory: Negative for cough, hemoptysis, sputum production, shortness of breath, wheezi ng. Cardiovascular: Negative for chest pain, palpitations, orthopnea, leg swelling. Gastrointestinal: Negative for abdominal pain, nausea and vomiting, blood in stool, constip ation, diarrhea, melena. Genitourinary: Negative for dysuria, flank pain, hematuria, retention. Musculoskeletal: + back pain, myalgias. Skin: Negative for itching and rash. Neurological: Negative for dizziness, focal weakness, headaches. Psychiatric/Behavioral: Alert and Oriented. Objective: Vital Signs 03/25 700 - 03/26 0659 03/26 700 - 03/27 0659 03/27 700 - 03/27 2058 Most Rec ent Temp (C) 35.8 - 36.4 36.1 - 36.4 35.8 - 37.4 36.6 (97.9) Pulse 64 - 98 60 - 64 55 - 78 67 Resp 16 - 18 16 - 17 16 - 18 18 BP 132/57 - 169/80 132/54 - 189/68 137/75 - 204/78 168/67 SpO2 (%) 92 - 97 91 - 99 96 - 100 98 I/O last 3 completed shifts: In: 800 [P.O.:800] Out: 2000 [Urine:1] Wt Readings from Last 3 Encounters: 03/24/19 62 kg (136 lb 11 oz) 03/23/19 66.7 kg (147 lb) 02/03/19 70.8 kg (156 lb) Active Lines PIV Line Peripheral IV Line - Single Lumen 03/24/19 2143 Left Lateral Forearm rnkp-lus-xywbjg daniel ter system 20 gauge;1 09/16 in length 2 days Line Hemodialysis AV Access 01/04/18 fistula upper arm, right 447 days Active Tubes/Drains None Physical Exam Constitutional: No distress. Head: Normocephalic and atraumatic. Eyes: Conjunctivae and EOM are normal. Pupils are equal, round, and reactive to light. ENT/Mouth: oral mucosa is moist. Neck: Normal range of motion. Neck supple. Cardiovascular: Normal rate and regular rhythm. Pulmonary/Chest: Normal Work of breathing, breath sounds normal. No wheeze, no rhonchi. Abdominal: Soft, non tender, non distended, Bowel sounds are present. There is no rebound a nd no guarding. Back: tenderness to palpation in the lower thoracic and upper lumbar vertebral region with paraspinal tenderness. Musculoskeletal: There is no edema. Neurological: There are no focal neurologic deficit. Psychiatric: AAOX 2 Skin: warm and dry. Right upper extremity AV fistula Medications: aspirin 81 mg Oral Daily calcium acetate 667 mg Oral TID WC cefepime 1 g Intravenous Daily cholecalciferol 4,000 Units Oral Daily doxercalciferol 0.5 mcg Oral Once per day on Wed furosemide 80 mg Oral Daily hydrALAZINE 10 mg Oral BID insulin lispro 0-12 Units Subcutaneous 4x Daily WC and HS labetalol 200 mg Oral BID levothyroxine 75 mcg Oral QAM AC lidocaine 1 patch Transdermal Daily losartan 100 mg Oral Daily NIFEdipine 60 mg Oral Daily olopatadine 1-2 drop Both Eyes BID pantoprazole 40 mg Oral QAM AC probiotic 1 capsule Oral BID vancomycin per pharmacy Other Pharmacy Consult 24 HOUR LABS: Recent Results (from the past 24 hour(s)) Vancomycin Level Result Value Ref Range Vancomycin Random 17.7 ug/mL POC Glucose Result Value Ref Range Glucose, POC 83 65 - 99 mg/dL POC Glucose Result Value Ref Range Glucose, POC 82 65 - 99 mg/dL POC Glucose Result Value Ref Range Glucose, POC 138 (H) 65 - 99 mg/dL Glucose, POC Date/Time Value Ref Range Status 03/27/2019 17:17 138 (H) 65 - 99 mg/dL Final Comment: Performed by [facility] [address] [place] [address] 03/27/2019 13:58 82 65 - 99 mg/dL Final Comment: Performed by [facility] [address] [place] [address] 03/27/2019 06:39 83 65 - 99 mg/dL Final Comment: Performed by [facility] [address] [place] [address] 12/09/2018 18:05 113 (H) 70 - 109 mg/dL Final 12/09/2018 11:54 175 (H) 70 - 109 mg/dL Final 12/09/2018 06:09 117 (H) 70 - 109 mg/dL Final All pertinent labs and imaging have been reviewed. Please refer to the Assessment and Plan for details on management. I spent 30 minutes with the patient and on the patient's unit, with over 50% spent in coun seling and/or coordination of care. Please refer to the Assessment and Plan for details. Electronically signed by: Katey Hill MD 03/27/2019 20:58 Portions of this chart may have been created with Cell[employer]Spot voice recognition software. Occasi onal wrong-word or sound-alike substitutions may have occurred due to the inherent mckeon itations of voice recognition software. Please read the chart carefully and recognize, using context, where these substitutions have occurred Darlin Mcgarry, [facility] - 03/27/2019 3:17 PM PDTSOCIAL WORK D/C PLAN: SNF: [facility] NEXT STEPS: Await bed availability INTERVENTION: Rec'd call from Emili at [facility]. She states the contracted f acility near pt's home is [facility]. Spoke with pt and with sister India. Referral and (-) Pasrr sent to [facility]. Copy of Pasrr placed in light chart with request to file into jos rds. SW will follow. ASSESSMENT/CHART REVIEW:73 yr old femalewith a history of ESRD on hemodialysis, hypertens ion, type 2 diabetes, hypothyroidism,chronic anemia,hyperlipidemia, hx of stroke [facility] [place] lesion noted on MRI concerning fo r osteomyelitis. SW met with pt's sister, Yina, and her cousin, Keri, who were waiting in pt's room while s he was in dialysis. SW will need to follow up with pt re: d/c planning. Pt's sister and co dick related that pt mostly lives at Yina's house outside [place], [place], but does not like to be tied down because she enjoys attending [place] festivals and many events. She does atten d dialysis weekly. Pt has a vehicle and is very independent. D/C TRANSPORT: tbd BARRIERS TO D/C: none CONTACTS: Yina La: sister India Tilley: sister [facility]: [phone] fax: [phone] [facility] [phone] Gregg Mcgarry CREATIVE ASSISTANT - 03/27/2019 2:17 PM PDTFormatting of this note might be different from jerald more. SOCIAL WORK D/C PLAN: SNF NEXT STEPS: SW to follow up with pt regarding SNF preference INTERVENTION: On-going dc planning, chart reviewed and met with pt. Discussed need of termination clerk IV abx, Discussed options. Provided list of available SNFs near her home. SW will follo w up with her tomorrow. SW met with pt's sister, Yina, and her cousin, Keri, who were waiting in pt's room while s he was in dialysis. SW will need to follow up with pt re: d/c planning. Pt's sister and co dick related that pt mostly lives at Yina's house outside [place], [place], but does not like to be tied down because she enjoys attending [place] festivals and many events. She does atten d dialysis weekly. Pt has a vehicle and is very independent. ASSESSMENT/CHART REVIEW:73 yr old femalewith a history of ESRD on hemodialysis, hypertens ion, type 2 diabetes, hypothyroidism,chronic anemia,hyperlipidemia, hx of stroke [facility] [place] lesion noted on MRI concerning fo r osteomyelitis. D/C TRANSPORT: tbd BARRIERS TO D/C: none CONTACTS: Yina La Sister [phone] India Tilley Sister [phone] Irish Cadet, Soil Surveyor - 03/27/2019 1:33 PM PDTFormatting of this note might be different fr om the original. Pharmacy Progress Note VANCOMYCIN PER PHARMACY PROTOCOL: Day 4 Estefani Tilley is a 73 y.o. female receiving vancomycin for the treatment of osteomyelit is Assessment/Plan: 1. RL 17.7, vancomycin dosed at 750mg X1 today after dialysis 2. Target Trough: 15-20 mcg/ml 3. Random vancomycin level ordered for 03/29 with AM labs 4. Pharmacy to monitor daily and adjust dosage per protocol Subjective/Objective: Other antibiotics: cefepime Blood pressure 137/75, pulse 78, temperature 36.3 C (97.3 F), temperature source Tempor al, resp. rate 16, height 1.727 m (5' 8"), weight 62 kg (136 lb 11 oz), SpO2 100 %. Min/Max Temp past 24 hours:Temp Av.2 C (97.1 F) Min: 35.8 C (96.4 F) Max: 3 6.4 C (97.6 F) Recent Labs Lab 03/26/19 0411 03/25/19 0918 WBC 4.57 5.34 CREA 3.82* 3.01* BUN 19 14 Estimated Creatinine Clearance: 13 mL/min (A) (based on SCr of 3.82 mg/dL (H)). Lab Results Component Value Date/Time VANCMOORE HAVENNDOM 17.7 03/27/2019 05:12 I/O last 3 completed shifts: In: 360 [P.O.:360] Out: 1 [Urine:1] I/O this shift: In: - Out: 2000 Micro/Cultures: BCx - NGTD, BiopsyCx - NGTD Per P&T-approved Vancomycin Protocol Electronically signed by: Aimee Carroll, Soil Surveyor 03/27/2019 13:33Electronically si gned by Ray Joel, PharmD at 03/27/2019 2:04 PM PDT Associated attestation - Ray Joel PharmD - 03/27/2019 2:04 PM PDTI reviewed and agr ee with the assessment and plan. Ray Joel PharmD 03/27/2019 14:04 Randy Corrigan MD - 03/27/2019 10:52 AM PDT [facility] INPATIENT ROUNDING NOTE Date of Service: 03/27/2019 Rounding Physician: Randy Corrigan MD Patient Name: Estefani Tilley : 1945 Medical Record: [id number] Hospital Summary: Estefani Tilley is a 73 y.o. female with a PMHx of ESRD, HTN, Dm type 2, hypothyroidism, HLd, CVA who is under the care of Dr Muñoz at [facility] who dialyzes MWF admitted with possible osteo disccitis t11/t12 ASSESSMENT AND PLAN 1. ESRD/HD dependent Access is LUE AVF working well Seen on HD today No complaint on HD 2. Anemia Hg at goal of 9-11 3. HTN Bp runs around a bit but average is acceptable Consider upping nifedipine xl to 90 4. BMM On Hectoral Po4 is elevated Start phoslo SUBJECTIVE: Patient seen and examined No SOB or chest pain Tolerating HD today Review of Symptoms: A complete ROS was performed with all others negative x 10 systems Scheduled Meds: aspirin 81 mg Oral Daily cefepime 1 g Intravenous Daily cholecalciferol 4,000 Units Oral Daily doxercalciferol 0.5 mcg Oral Once per day on Wed furosemide 80 mg Oral Daily hydrALAZINE 10 mg Oral BID insulin lispro 0-12 Units Subcutaneous 4x Daily WC and HS labetalol 200 mg Oral BID levothyroxine 75 mcg Oral QAM AC lidocaine 1 patch Transdermal Daily losartan 100 mg Oral Daily NIFEdipine 60 mg Oral Daily olopatadine 1-2 drop Both Eyes BID pantoprazole 40 mg Oral QAM AC probiotic 1 capsule Oral BID vancomycin per pharmacy Other Pharmacy Consult Continuous Infusions: dextrose 10% OBJECTIVE Vitals Current 24 hour Min/Max BP (!) 204/78 BP Min: 132/54 Max: 204/78 HR 64 Pulse Min: 55 Max: 64 Temp 36.2 C (97.2 F) Temp Min: 36.1 C (97 F) Max: 36.4 C (97.6 F) RR 16 Resp Min: 16 Max: 17 Sats SpO2: 97 % on L/min room air SpO2 Min: 91 % Max: 97 % 03/26 07 - 03/27 0700 In: 360 [P.O.:360] Out: 1 [Urine:1] AOx3 JVp not elevated Chest is clear CVS RRR Abdomen Nt Ext no edema LUE AVF with good bruit and thrill Recent Labs Lab 03/26/19 04103/25/19 0918 03/24/19 0518 WBC 4.57 5.34 5.46 HGB 10.2* 10.2* 9.9* HCT 32.1* 31.5* 31.3* PLT 179 192 177 Recent Labs Lab 03/26/19 1144 03/26/19 0411 03/25/19 0918 03/24/19 0518 03/23/19 1903 NA -- 133* 135 141 137 K -- 4.3 5.0 4.4 4.2 CL -- 99 101 105 101 CO2 -- 27 28 27 30 BUN -- 19 14 19 18 CREA -- 3.82* 3.01* 4.02* 3.78* CALCIUM -- 8.2* 8.0* 7.9* 8.5* PHOS 5.6* -- -- -- -- ALBUMIN -- -- -- -- 3.6 Diagnostic Studies: Available data and images were reviewed personally. Significant results and findings are ad dressed here or in the Assessment and Plan. Please feel free to contact me with any questions Electronically signed by: Trace Corrigan MD, 03/27/2019, 10:52 illCarlos north MD - 03/27/2019 7:10 AM PDT Infectious Diseases Progress Note Pt. Name/Age/: Estefani Tilley 73 y.o. 1945 Med. Record Number: [id number] Date of admission: 03/24/2019 Patient admitted with thoracic vertebral discitis/osteomyelitis Date of service: 03/27/2019 Subjective: The patient chart and medications were reviewed in detail and the patient was s een and examined. Patient reports pain a bit better today, feels a bit better overall Some nausea and some nausea no diarrhea no rash No shortness of breath or cough No tinnitus vertigo No headache, no weakness or numbness Medications: Antibiotics Vancomycin Cefepime Objective: Physical Exam: Wt. Admission: Weight: 63.5 kg (140 lb) Wt. Current: Weight: 62 kg (136 lb 11 oz) Temp: [36.1 C (97 F)-36.4 C (97.6 F)] 36.1 C (97 F) Pulse: [60-64] 61 Resp: [16-17] 17 BP: (132-189)/(54-89) 132/54 General: Nontoxic, not tachypneic HEENT: No thrush no conjunctival injection Cardiovascular: Regular rate and rhythm Respiratory: Clear, no wheezes Abdomen: Soft nontender positive bowel tones do not feel a spleen tip Extremities/Musculoskeletal: No acute synovial changes or hip irritability Skin: No generalized rash or peripheral embolic stigmata Neurological: Awake alert appropriate responsive motor intact Psychiatric: Normal affect, no confusion Lab: Recent Results (from the past 24 hour(s)) Phosphorus Result Value Ref Range Phosphorus 5.6 (H) 2.6 - 4.4 mg/dL POC Glucose Result Value Ref Range Glucose, POC 108 (H) 65 - 99 mg/dL POC Glucose Result Value Ref Range Glucose, POC 101 (H) 65 - 99 mg/dL POC Glucose Result Value Ref Range Glucose, POC 165 (H) 65 - 99 mg/dL Vancomycin Level Result Value Ref Range Vancomycin Random 17.7 ug/mL POC Glucose Result Value Ref Range Glucose, POC 83 65 - 99 mg/dL Assessment and Plan: #1 thoracic vertebral osteomyelitis/discitis T11-T12 No evidence epidural abscess White count 4.57, creatinine 3.82 vancomycin level 17.7 No significant evidence systemic toxicity Temperature on admission, now down Underwent aspiration/biopsy Stains negative Cultures negative thus far Neurologically stable Pain slightly better, feels a bit better today On empiric vancomycin and cefepime Well-tolerated Continue antibiotics Follow-up cultures and adjust therapy as appropriate Anticipating 6 weeks intravenous antibiotics via secure access Watch closely, may still merit surgical intervention at some point If cultures negative, anticipate empiric therapy #2 fever Likely related to above Down over last 48 hours #3 reports penicillin allergy Cephalosporins well tolerated #4 end-stage renal disease Dialysis Creatinine 3.82, today's labs pending. At risk for nosocomial pathogens Broad empiric therapy Doses adjusted #5 diabetes mellitus Requires optimal control Electronically signed by: Carlos Jansen, 03/27/2019 7:10 [facility] Katey Solis MD - 03/26/2019 5:40 PM PDT Patient: Estefani Tilley Date of : 1945 Admit Date: 03/24/2019 Date of Service: 03/26/2019 PCP: Francisca Womack PA-C Hospital Day: Hospital Day: 3 Hospital Course: 73-year-old female with history of ESRD on hemodialysis, hypertension, type 2 diabetes, hyp othyroidism, chronic anemia, hyperlipidemia with a history of stroke transferred from [facility] [place] for evaluation of T11-T12 lesion noted on MRI concerning for osteomyeliti s. Infectious disease consulted. Status post aspiration from her thoracic spine, Gram stain negative, cultures pending. Pat ient started on empiric vancomycin and cefepime. Nephrology following for maintenance hemodialysis. Assessment and Plan: Assessment of active problems addressed today: Osteomyelitis/discitis of T11, T12 vertebra Has been afebrile, normal white count and improved CRP Status post aspiration from her thoracic spine, Gram stain negative, cultures pending. Infectious disease help appreciated Continue vancomycin and cefepime Follow cultures Echocardiogram negative for any endocarditis. Patient will likely need IV antibiotics for 6 weeks. Continue probiotic Pain management -trial of lidocaine patch today, continue PRN oxycodone and Dilaudid Hypertension Pressure elevated Continue home medications-labetalol 200 mg twice daily, losartan 100 mg daily, nifedipine 6 0 mg daily Start hydralazine 10 mg p.o. twice daily Monitor blood pressure Diabetes Blood sugar stable Patient is not on any medications Continue insulin sliding scale Monitor blood sugar ESRD on hemodialysis nephrology consulted, help appreciated continue dialysis and management per hemodialysis Macrocytic anemia likely secondary to-likely anemia of chronic disease No concern for bleeding Epogen per nephrology B12 and folic acid within normal Continue to monitor hemoglobin Hypothyroidism Home levothyroxine Plan of care discussed in detail with the patient all questions answered verbalized underst anding and agreed with the same. Active Hospital Problems Diagnosis probable Discitis of thoracic region ESRD (end stage renal disease) on dialysis DM (diabetes mellitus), type 2 Macrocytic anemia Essential hypertension Hyperlipidemia DJD (degenerative joint disease) Resolved Hospital Problems No resolved problems to display. I have reviewed and updated the problem list. Disposition: TBD CODE STATUS: Full Code DVT prophylaxis: Anticoagulants Salicylates aspirin EC tablet 81 mg 81 mg, Oral, DAILY, Do not cut or crush. Subjective: CC: Patient still reports significant back pain, no new neurological deficits, afebrile, no t happy with her renal diet and requests regular diet. ROS A 10 point ROS is otherwise negative unless mentioned in the CC or below. Constitutional: Negative for chills, fever, + malaise/fatigue, generalized weakness Eyes: Negative for blurred vision and double vision. Respiratory: Negative for cough, hemoptysis, sputum production, shortness of breath, wheezi ng. Cardiovascular: Negative for chest pain, palpitations, orthopnea, leg swelling. Gastrointestinal: Negative for abdominal pain, nausea and vomiting, blood in stool, constip ation, diarrhea, melena. Genitourinary: Negative for dysuria, flank pain, hematuria, retention. Musculoskeletal: + back pain, myalgias. Skin: Negative for itching and rash. Neurological: Negative for dizziness, focal weakness, headaches. Psychiatric/Behavioral: Alert and Oriented. Objective: Vital Signs 03/24 700 - 03/25 0659 03/25 700 - 03/26 0659 03/26 700 - 03/26 1740 Most Rec ent Temp (C) 35.8 - 36.4 35.8 - 36.4 36.4 36.4 (97.6) Pulse 58 - 76 64 - 98 60 - 64 63 Resp 10 - 23 16 - 18 16 16 BP 104/60 - 188/77 132/57 - 169/80 164/70 - 189/68 164/70 SpO2 (%) 93 - 100 92 - 97 91 - 99 91 Weight (kg) 62 - 63.5 I/O last 3 completed shifts: In: 70 [I.V.:15; IV Piggyback:55] Out: - Wt Readings from Last 3 Encounters: 03/24/19 62 kg (136 lb 11 oz) 03/23/19 66.7 kg (147 lb) 02/03/19 70.8 kg (156 lb) Active Lines PIV Line Peripheral IV Line - Single Lumen 03/24/19 2143 Left Lateral Forearm [id number]-piz-yzddbk daniel ter system 20 gauge;1 09/16 in length 1 day Line Hemodialysis AV Access 01/04/18 fistula upper arm, right 446 days Active Tubes/Drains None Physical Exam Constitutional: No distress. Head: Normocephalic and atraumatic. Eyes: Conjunctivae and EOM are normal. Pupils are equal, round, and reactive to light. ENT/Mouth: oral mucosa is moist. Neck: Normal range of motion. Neck supple. Cardiovascular: Normal rate and regular rhythm. Pulmonary/Chest: Normal Work of breathing, breath sounds normal. No wheeze, no rhonchi. Abdominal: Soft, non tender, non distended, Bowel sounds are present. There is no rebound a nd no guarding. Back: tenderness to palpation in the lower thoracic and upper lumbar vertebral region with paraspinal tenderness. Musculoskeletal: Normal range of motion. There is no edema. Neurological: There are no focal neurologic deficit. Psychiatric: AAOX 3, behavior is normal. Skin: warm and dry. Right upper extremity AV fistula Medications: aspirin 81 mg Oral Daily cefepime 1 g Intravenous Daily cholecalciferol 4,000 Units Oral Daily doxercalciferol 0.5 mcg Oral Once per day on Wed furosemide 80 mg Oral Daily insulin lispro 0-12 Units Subcutaneous 4x Daily WC and HS labetalol 200 mg Oral BID levothyroxine 75 mcg Oral QAM AC lidocaine 1 patch Transdermal Daily losartan 100 mg Oral Daily NIFEdipine 60 mg Oral Daily olopatadine 1-2 drop Both Eyes BID pantoprazole 40 mg Oral QAM AC probiotic 1 capsule Oral BID vancomycin per pharmacy Other Pharmacy Consult 24 HOUR LABS: Recent Results (from the past 24 hour(s)) POC Glucose Result Value Ref Range Glucose, POC 110 (H) 65 - 99 mg/dL Vancomycin Level Result Value Ref Range Vancomycin Random 20.5 ug/mL Vitamin B-12 and Folate Result Value Ref Range FOLATE 21.3 >=5.8 ng/mL VITAMIN B-12 603 180 - 914 pg/mL CBC no Differential Result Value Ref Range WBC 4.57 3.80 - 11.00 K/uL RBC 3.12 (L) 3.70 - 5.10 M/uL Hemoglobin 10.2 (L) 11.3 - 15.5 g/dL Hct 32.1 (L) 34.0 - 46.0 % MCV 102.9 (H) 80.0 - 100.0 fL MCH 32.7 27.0 - 34.0 pg MCHC 31.8 (L) 32.0 - 35.5 g/dL RDW-CV 15.1 11.0 - 15.5 % Platelet Count 179 150 - 400 K/uL MPV 10.2 9.3 - 12.7 fL Basic Metabolic Panel Result Value Ref Range Na 133 (L) 135 - 145 mmol/L K 4.3 3.5 - 5.0 mmol/L Cl 99 99 - 109 mmol/L CO2 27 21 - 28 mmol/L Anion Gap 7 5 - 16 mmol/L Ca 8.2 (L) 8.5 - 10.2 mg/dL BUN 19 8 - 25 mg/dL Creatinine 3.82 (H) 0.50 - 1.00 mg/dL Glucose 105 (H) 65 - 99 mg/dL Estimated GFR 11 (L) >=90 mL/min/1.73m2 Vancomycin Level Result Value Ref Range Vancomycin Random 20.2 ug/mL POC Glucose Result Value Ref Range Glucose, POC 116 (H) 65 - 99 mg/dL Phosphorus Result Value Ref Range Phosphorus 5.6 (H) 2.6 - 4.4 mg/dL POC Glucose Result Value Ref Range Glucose, POC 108 (H) 65 - 99 mg/dL Glucose, POC Date/Time Value Ref Range Status 03/26/2019 12:09 108 (H) 65 - 99 mg/dL Final Comment: Performed by [facility] [address] [place] [address] 03/26/2019 06:49 116 (H) 65 - 99 mg/dL Final Comment: Performed by [facility] [address] [place] [address] 03/25/2019 20:37 110 (H) 65 - 99 mg/dL Final Comment: Performed by [facility] [address], [place] [address] 12/09/2018 18:05 113 (H) 70 - 109 mg/dL Final 12/09/2018 11:54 175 (H) 70 - 109 mg/dL Final 12/09/2018 06:09 117 (H) 70 - 109 mg/dL Final All pertinent labs and imaging have been reviewed. Please refer to the Assessment and Plan for details on management. I spent 30 minutes with the patient and on the patient's unit, with over 50% spent in coun seling and/or coordination of care. Please refer to the Assessment and Plan for details. Electronically signed by: Katey Hill MD 03/26/2019 17:40 Portions of this chart may have been created with [employer] voice recognition software. Occasi onal wrong-word or sound-alike substitutions may have occurred due to the inherent mckeon itations of voice recognition software. Please read the chart carefully and recognize, using context, where these substitutions have occurred Jose Gamez, Pharmacy R esident - 03/26/2019 10:52 AM PDTFormatting of this note might be different from the [facility] Progress Note VANCOMYCIN PER PHARMACY PROTOCOL: Day 3 Estefani Tilley is a 73 y.o. female receiving vancomycin for the treatment of osteomyelit is Assessment/Plan: 1. RL 20.2, hold vancomycin today 2. Target Trough: 15-20 mcg/ml 3. Random vancomycin level ordered for 03/27 with AM labs 4. Pharmacy to monitor daily and adjust dosage per protocol Subjective/Objective: Other antibiotics: cefepime Blood pressure 186/89, pulse 60, temperature 36.1 C (97 F), temperature source Temporal , resp. rate 16, height 1.727 m (5' 8"), weight 62 kg (136 lb 11 oz), SpO2 99 %. Min/Max Temp past 24 hours:Temp Av.1 C (97 F) Min: 35.8 C (96.5 F) Max: 36. 4 C (97.5 F) Recent Labs Lab 03/26/19 0411 03/25/19 0918 WBC 4.57 5.34 CREA 3.82* 3.01* BUN 19 14 Estimated Creatinine Clearance: 13 mL/min (A) (based on SCr of 3.82 mg/dL (H)). Lab Results Component Value Date/Time SHANE 20.2 03/26/2019 04:11 I/O last 3 completed shifts: In: 70 [I.V.:15; IV Piggyback:55] Out: - I/O this shift: In: - Out: 1 [Urine:1] Micro/Cultures: BCx - NGTD, BiopsyCx - NGTD Per P&T-approved Vancomycin Protocol Electronically signed by: Jose Menard, Soil Surveyor 03/26/2019 10:52 sRandy carter MD - 03/26/2019 1 0:38 AM PDT [facility] INPATIENT ROUNDING NOTE Date of Service: 03/26/2019 Rounding Physician: Randy Corrigan MD Patient Name: Estefani Tilley : 1945 Medical Record: [id number] Hospital Summary: Estefani Tilley is a 73 y.o. female with a PMHx of ESRD, HTN, Dm type 2, hypothyroidism, HLd, CVA who is under the care of Dr Muñoz at [facility] who dialyzes MWF admitted with possible osteo disccitis t11/t12 ASSESSMENT AND PLAN 1. ESRD/HD dependent Access is LUE AVF working well No indications for HD today Usually dialyzes MWF at [facility] Hd tommorow 2. Anemia Hg at goal of 9-11 3. HTN Bp runs around a bit but average is acceptable Consider upping nifedipine xl to 90 4. BMM On Hectoral Check Po4 SUBJECTIVE: Patient seen and examined No SOB or chest pain Review of Symptoms: A complete ROS was performed with all others negative x 10 systems Scheduled Meds: aspirin 81 mg Oral Daily cefepime 1 g Intravenous Daily cholecalciferol 4,000 Units Oral Daily doxercalciferol 0.5 mcg Oral Once per day on Wed furosemide 80 mg Oral Daily insulin lispro 0-12 Units Subcutaneous 4x Daily WC and HS labetalol 200 mg Oral BID levothyroxine 75 mcg Oral QAM AC losartan 100 mg Oral Daily NIFEdipine 60 mg Oral Daily olopatadine 1-2 drop Both Eyes BID pantoprazole 40 mg Oral QAM AC probiotic 1 capsule Oral BID vancomycin per pharmacy Other Pharmacy Consult Continuous Infusions: dextrose 10% OBJECTIVE Vitals Current 24 hour Min/Max BP 186/89 BP Min: 132/57 Max: 186/89 HR 60 Pulse Min: 60 Max: 79 Temp (refused oral temp) Temp Min: 35.8 C (96.5 F) Max: 36.4 C (97.5 F) RR 16 Resp Min: 16 Max: 17 Sats SpO2: 99 % on L/min room air SpO2 Min: 92 % Max: 99 % 03/25 701 - 03/26 07 In: 70 [I.V.:15] Out: - AOx3 JVp not elevated Chest is clear CVS RRR Abdomen Nt Ext no edema LUE AVF with good bruit and thrill Recent Labs Lab 03/26/1941003/25/1918 03/24/19 0518 WBC 4.57 5.34 5.46 HGB 10.2* 10.2* 9.9* HCT 32.1* 31.5* 31.3* PLT 179 192 177 Recent Labs Lab 03/26/1941003/25/1991703/24/19 0518 03/23/19 1903 NA 133* 135 141 137 K 4.3 5.0 4.4 4.2 CL 99 101 105 101 CO2 27 28 27 30 BUN 19 14 18 CREA 3.82* 3.01* 4.02* 3.78* CALCIUM 8.2* 8.0* 7.9* 8.5* ALBUMIN -- -- -- 3.6 Diagnostic Studies: Available data and images were reviewed personally. Significant results and findings are ad dressed here or in the Assessment and Plan. Please feel free to contact me with any questions Electronically signed by: Trace Corrigan MD, 03/26/2019, 10:38 Gonzales Ramos RN - 03/26/2019 9:53 AM PDTPt admitted 03/24 for evaluation of T11-T12 lesion noted on MRI kelly rning for osteomyelitis. Hx ESRD on hemodialysis, hypertension, type 2 diabetes, hypothyroidism, chronic anemia, hyp erlipidemia, and stroke. Became irritable when this RN tried to check temperature orally as she did not understand w hy everyone else was doing it on forehead. BP elevated, PRN labetalol given. Probiotic and PO labetalol not available in pyxis when this RN went in to do med pass, will pass to RN taking over care. 9:5 6 AM PDTGillum, MD Carlos - 03/26/2019 8:03 AM PDTFormatting of this note might be differ ent from the original. Infectious Diseases Progress Note Pt. Name/Age/: Estefani Tony Tilley 73 y.o. 1945 Med. Record Number: [id number] Date of admission: 03/24/2019 Patient admitted with thoracic vertebral discitis/osteomyelitis Date of service: 03/26/2019 Subjective: The patient chart and medications were reviewed in detail and the patient was s een and examined. Patient reports pain about the same Some nausea and some nausea no diarrhea no rash No shortness of breath or cough No tinnitus vertigo No headache, no weakness or numbness Medications: Antibiotics Vancomycin Cefepime Objective: Physical Exam: Wt. Admission: Weight: 63.5 kg (140 lb) Wt. Current: Weight: 62 kg (136 lb 11 oz) Temp: [35.8 C (96.5 F)-36.4 C (97.5 F)] 36.1 C (97 F) Pulse: [64-98] 79 Resp: [16-18] 17 BP: (132-169)/(57-80) 137/64 General: Nontoxic, not tachypneic HEENT: No thrush no conjunctival injection Cardiovascular: Regular rate and rhythm Respiratory: Clear, no wheezes Abdomen: Soft nontender positive bowel tones do not feel a spleen tip Extremities/Musculoskeletal: No acute synovial changes or hip irritability Skin: No generalized rash or peripheral embolic stigmata Lymph: No neck or axillary adenopathy Neurological: Awake alert appropriate responsive motor intact Psychiatric: Normal affect, no confusion Lab: Recent Results (from the past 24 hour(s)) ECHO Complete Result Value Ref Range BASELINE BLOOD PRESSURE 104/60 mmHg Patient Weight (lbs) 137 lbs Patient Height 68 in RA PRESSURE 3 mmHg LVIDd 4.5 cm FS 27 % LA volume 76.7 mL Ascending aorta 3.7 cm PV peak gradient 2.41 mmHg LVOT peak skye 104 cm/s AV peak skye 193 cm/s AV peak gradient 14.9 mmHg LA Volume Index 44 mL/m2 AV LVOT Peak Gradient 4 mmHg TR Peak Gradient 46 mmHg TR Velocity 338 cm PI Peak Velocity 77.6 cm/s LV Diastolic Length 4C 9.41 cm LV Systolic Area PSAX 20.8 cm2 LV Lima's Biplane EF 62 % LV ED Volume (Lima's) 121 ml LV ED Volume Index 70 ml/m2 LV ES Volume 46.3 ml RVSP Estimated 49 mmHg MV E' Lateral Velocity 6.53 cm/s MV E' Septal Velocity 4.9 cm/s MV Deceleration Time 359 msec MV E/A Ratio 1.77 MV Peak A-Wave 90.3 cm/s MV Peak E-Wave 160 cm/s LA/Aorta Ratio 1.68 LA Area 23.5 cm2 LA Systolic Pressure 32.63 mmHg MV E/E SEPTAL 32.65 MV E/E LATERAL 24.5 LV ES Volume Index 27 ml/m2 LV Area Diastolic 37.3 cm2 Heart Rate 65 Aortic Root Diameter 3.1 cm IVS Diastolic Thickness MM 1.3 cm LVPW Diastolic Thickness MM 1.1 cm LV Systolic Diameter MM 3.3 cm AV Cusp Seperation MM 1.9 cm LA Systolic Diameter MM 5.2 cm LVEF-TTE TRANSTHORACIC ECHO 60 % Basic Metabolic Panel Result Value Ref Range Na 135 135 - 145 mmol/L K 5.0 3.5 - 5.0 mmol/L Cl 101 99 - 109 mmol/L CO2 28 21 - 28 mmol/L Anion Gap 6 5 - 16 mmol/L Ca 8.0 (L) 8.5 - 10.2 mg/dL BUN 14 8 - 25 mg/dL Creatinine 3.01 (H) 0.50 - 1.00 mg/dL Glucose 118 (H) 65 - 99 mg/dL Estimated GFR 15 (L) >=90 mL/min/1.73m2 C-Reactive Protein Result Value Ref Range CRP 1.5 0.0 - 1.5 mg/dL CBC no Differential Result Value Ref Range WBC 5.34 3.80 - 11.00 K/uL RBC 3.08 (L) 3.70 - 5.10 M/uL Hemoglobin 10.2 (L) 11.3 - 15.5 g/dL Hct 31.5 (L) 34.0 - 46.0 % MCV 102.3 (H) 80.0 - 100.0 fL MCH 33.1 27.0 - 34.0 pg MCHC 32.4 32.0 - 35.5 g/dL RDW-CV 15.4 11.0 - 15.5 % Platelet Count 192 150 - 400 K/uL MPV 10.2 9.3 - 12.7 fL POC Glucose Result Value Ref Range Glucose, POC 117 (H) 65 - 99 mg/dL POC Glucose Result Value Ref Range Glucose, POC 179 (H) 65 - 99 mg/dL POC Glucose Result Value Ref Range Glucose, POC 110 (H) 65 - 99 mg/dL Vancomycin Level Result Value Ref Range Vancomycin Random 20.5 ug/mL Vitamin B-12 and Folate Result Value Ref Range FOLATE 21.3 >=5.8 ng/mL VITAMIN B-12 603 180 - 914 pg/mL CBC no Differential Result Value Ref Range WBC 4.57 3.80 - 11.00 K/uL RBC 3.12 (L) 3.70 - 5.10 M/uL Hemoglobin 10.2 (L) 11.3 - 15.5 g/dL Hct 32.1 (L) 34.0 - 46.0 % MCV 102.9 (H) 80.0 - 100.0 fL MCH 32.7 27.0 - 34.0 pg MCHC 31.8 (L) 32.0 - 35.5 g/dL RDW-CV 15.1 11.0 - 15.5 % Platelet Count 179 150 - 400 K/uL MPV 10.2 9.3 - 12.7 fL Basic Metabolic Panel Result Value Ref Range Na 133 (L) 135 - 145 mmol/L K 4.3 3.5 - 5.0 mmol/L Cl 99 99 - 109 mmol/L CO2 27 21 - 28 mmol/L Anion Gap 7 5 - 16 mmol/L Ca 8.2 (L) 8.5 - 10.2 mg/dL BUN 19 8 - 25 mg/dL Creatinine 3.82 (H) 0.50 - 1.00 mg/dL Glucose 105 (H) 65 - 99 mg/dL Estimated GFR 11 (L) >=90 mL/min/1.73m2 Vancomycin Level Result Value Ref Range Vancomycin Random 20.2 ug/mL POC Glucose Result Value Ref Range Glucose, POC 116 (H) 65 - 99 mg/dL Assessment and Plan: #1 thoracic vertebral osteomyelitis/discitis T11-T12 No evidence epidural abscess White count 4.57, creatinine 3.82 vancomycin level 20.2 No significant evidence systemic toxicity Temperature on admission, now down Underwent aspiration/biopsy Stains negative Cultures pending Neurologically stable On empiric vancomycin and cefepime Well-tolerated Continue antibiotics Follow-up cultures and adjust therapy as appropriate Anticipating 6 weeks intravenous antibiotics via secure access Watch closely, may still merit surgical intervention at some point If cultures negative, anticipate empiric therapy #2 fever Likely related to above Down over last 24-48 hours #3 reports penicillin allergy Cephalosporins well tolerated #4 end-stage renal disease Dialysis At risk for nosocomial pathogens Broad empiric therapy Doses adjusted #5 diabetes mellitus Requires optimal control Electronically signed by: Carlos Jansen, 03/26/2019 8:03 [facility] Katey Solis MD - 03/25/2019 3:50 PM PDT Patient: Estefani Tilley Date of : 1945 Admit Date: 03/24/2019 Date of Service: 03/25/2019 PCP: Francisca Womack PA-C Hospital Day: Hospital Day: 2 Hospital Course: 73-year-old female with history of ESRD on hemodialysis, hypertension, type 2 diabetes, hyp othyroidism, chronic anemia, hyperlipidemia with a history of stroke transferred from [facility] [place] for evaluation of T11-T12 lesion noted on MRI concerning for osteomyeliti s. Infectious disease consulted. Status post aspiration from her thoracic spine, Gram stain negative, cultures pending. Pat ient started on empiric vancomycin and cefepime. Nephrology following for maintenance hemodialysis. Assessment and Plan: Assessment of active problems addressed today: Osteomyelitis/discitis of T11, T12 vertebra Patient afebrile, CRP improved Status post aspiration from her thoracic spine, Gram stain negative, cultures pending. Infectious disease help appreciated Continue vancomycin and cefepime Follow cultures Echocardiogram negative for any endocarditis. Closely monitor clinically. Patient will likely need IV antibiotics for 6 weeks. Continue probiotic Pain management Hypertension Blood pressure acceptable Continue home medications-labetalol 200 mg twice daily, losartan 100 mg daily, nifedipine 6 0 mg daily Monitor blood pressure Diabetes Patient is not on any medications Continue insulin sliding scale Monitor blood sugar ESRD on hemodialysis nephrology consulted, help appreciated continue dialysis and management per hemodialysis Macrocytic anemia likely secondary to-likely anemia of chronic disease No concern for bleeding Epogen per nephrology B12 and folic acid pending Hypothyroidism Home levothyroxine Plan of care discussed in detail with the patient all questions answered verbalized underst anding and agreed with the same. Active Hospital Problems Diagnosis probable Discitis of thoracic region ESRD (end stage renal disease) on dialysis DM (diabetes mellitus), type 2 Macrocytic anemia Essential hypertension Hyperlipidemia DJD (degenerative joint disease) Resolved Hospital Problems No resolved problems to display. I have reviewed and updated the problem list. Disposition: TBD CODE STATUS: Full Code DVT prophylaxis: Anticoagulants Heparins And Heparinoid-Like Agents heparin 1,000 units/mL injection 1,500-6,000 Units () 1,500-6,000 Units, Intracatheter, AFTER EACH DIALYSIS, Instill in catheter, after each rere lysis. Dispense quantity sufficient to fill both lumens of catheter. Salicylates aspirin EC tablet 81 mg 81 mg, Oral, DAILY, Do not cut or crush. Subjective: CC: Patient still continues to report of back pain, denies any neurological deficits, afebr ile, does not like renal diet. ROS A 10 point ROS is otherwise negative unless mentioned in the CC or below. Constitutional: Negative for chills, fever, + malaise/fatigue, generalized weakness Eyes: Negative for blurred vision and double vision. Respiratory: Negative for cough, hemoptysis, sputum production, shortness of breath, wheezi ng. Cardiovascular: Negative for chest pain, palpitations, orthopnea, leg swelling. Gastrointestinal: Negative for abdominal pain, nausea and vomiting, blood in stool, constip ation, diarrhea, melena. Genitourinary: Negative for dysuria, flank pain, hematuria, retention. Musculoskeletal: + back pain, myalgias. Skin: Negative for itching and rash. Neurological: Negative for dizziness, focal weakness, headaches. Psychiatric/Behavioral: Alert and Oriented. Objective: Vital Signs 03/23 700 - 03/24 0659 03/24 07 - 03/25 0659 03/25 700 - 03/25 1550 Most Rec ent Temp (C) 35.9 - 37.2 35.8 - 36.4 35.8 - 36.1 35.8 (96.5) Pulse 66 - 80 58 - 76 64 - 98 64 Resp 14 - 18 10 - 23 16 - 18 16 BP 143/69 - 208/80 104/60 - 188/77 152/79 - 169/80 152/79 SpO2 (%) 97 - 99 93 - 100 97 97 Weight (kg) 66.7 62 - 63.5 62 kg (136 lb 11 oz) I/O last 3 completed shifts: In: 800 [P.O.:300; I.V.:500] Out: 1428 Wt Readings from Last 3 Encounters: 03/24/19 62 kg (136 lb 11 oz) 03/23/19 66.7 kg (147 lb) 02/03/19 70.8 kg (156 lb) Active Lines PIV Line Peripheral IV Line - Single Lumen 03/24/19 2143 Left Lateral Forearm [id number] daniel ter system 20 gauge;1 1/4 in length less than 1 day Line Hemodialysis AV Access 01/04/18 fistula upper arm, right 445 days Active Tubes/Drains None Physical Exam Constitutional: No distress. Head: Normocephalic and atraumatic. Eyes: Conjunctivae and EOM are normal. Pupils are equal, round, and reactive to light. ENT/Mouth: oral mucosa is moist. Neck: Normal range of motion. Neck supple. Cardiovascular: Normal rate and regular rhythm. Pulmonary/Chest: Normal Work of breathing, breath sounds normal. No wheeze, no rhonchi. Abdominal: Soft, non tender, non distended, Bowel sounds are present. There is no rebound a nd no guarding. Back: tenderness to palpation in the lower thoracic and upper lumbar vertebral region with paraspinal tenderness. Musculoskeletal: + 1 edema Neurological: There are no new focal neurologic deficit. Left lower extremity weakness ( ch ronic per the patient) Psychiatric: AAOX 3 Skin: warm and dry. Medications: aspirin 81 mg Oral Daily [START ON 03/26/2019] cefepime 1 g Intravenous Daily cholecalciferol 4,000 Units Oral Daily doxercalciferol 0.5 mcg Oral Once per day on Wed furosemide 80 mg Oral Daily insulin lispro 0-12 Units Subcutaneous 4x Daily WC and HS labetalol 200 mg Oral BID levothyroxine 75 mcg Oral QAM AC losartan 100 mg Oral Daily NIFEdipine 60 mg Oral Daily olopatadine 1-2 drop Both Eyes BID pantoprazole 40 mg Oral QAM AC probiotic 1 capsule Oral BID vancomycin per pharmacy Other Pharmacy Consult 24 HOUR LABS: Recent Results (from the past 24 hour(s)) Hepatitis B Core Ab, Total Result Value Ref Range Hepatitis B Core Ab, Total Negative Negative POC Glucose Result Value Ref Range Glucose, POC 112 (H) 65 - 99 mg/dL POC Glucose Result Value Ref Range Glucose, POC 107 (H) 65 - 99 mg/dL ECHO Complete Result Value Ref Range BASELINE BLOOD PRESSURE 104/60 mmHg Patient Weight (lbs) 137 lbs Patient Height 68 in RA PRESSURE 3 mmHg LVIDd 4.5 cm FS 27 % LA volume 76.7 mL Ascending aorta 3.7 cm PV peak gradient 2.41 mmHg LVOT peak skye 104 cm/s AV peak skye 193 cm/s AV peak gradient 14.9 mmHg LA Volume Index 44 mL/m2 AV LVOT Peak Gradient 4 mmHg TR Peak Gradient 46 mmHg TR Velocity 338 cm PI Peak Velocity 77.6 cm/s LV Diastolic Length 4C 9.41 cm LV Systolic Area PSAX 20.8 cm2 LV Lima's Biplane EF 62 % LV ED Volume (Lima's) 121 ml LV ED Volume Index 70 ml/m2 LV ES Volume 46.3 ml RVSP Estimated 49 mmHg MV E' Lateral Velocity 6.53 cm/s MV E' Septal Velocity 4.9 cm/s MV Deceleration Time 359 msec MV E/A Ratio 1.77 MV Peak A-Wave 90.3 cm/s MV Peak E-Wave 160 cm/s LA/Aorta Ratio 1.68 LA Area 23.5 cm2 LA Systolic Pressure 32.63 mmHg MV E/E SEPTAL 32.65 MV E/E LATERAL 24.5 LV ES Volume Index 27 ml/m2 LV Area Diastolic 37.3 cm2 Heart Rate 65 Aortic Root Diameter 3.1 cm IVS Diastolic Thickness MM 1.3 cm LVPW Diastolic Thickness MM 1.1 cm LV Systolic Diameter MM 3.3 cm AV Cusp Seperation MM 1.9 cm LA Systolic Diameter MM 5.2 cm LVEF-TTE TRANSTHORACIC ECHO 60 % Basic Metabolic Panel Result Value Ref Range Na 135 135 - 145 mmol/L K 5.0 3.5 - 5.0 mmol/L Cl 101 99 - 109 mmol/L CO2 28 21 - 28 mmol/L Anion Gap 6 5 - 16 mmol/L Ca 8.0 (L) 8.5 - 10.2 mg/dL BUN 14 8 - 25 mg/dL Creatinine 3.01 (H) 0.50 - 1.00 mg/dL Glucose 118 (H) 65 - 99 mg/dL Estimated GFR 15 (L) >=90 mL/min/1.73m2 C-Reactive Protein Result Value Ref Range CRP 1.5 0.0 - 1.5 mg/dL CBC no Differential Result Value Ref Range WBC 5.34 3.80 - 11.00 K/uL RBC 3.08 (L) 3.70 - 5.10 M/uL Hemoglobin 10.2 (L) 11.3 - 15.5 g/dL Hct 31.5 (L) 34.0 - 46.0 % MCV 102.3 (H) 80.0 - 100.0 fL MCH 33.1 27.0 - 34.0 pg MCHC 32.4 32.0 - 35.5 g/dL RDW-CV 15.4 11.0 - 15.5 % Platelet Count 192 150 - 400 K/uL MPV 10.2 9.3 - 12.7 fL POC Glucose Result Value Ref Range Glucose, POC 117 (H) 65 - 99 mg/dL Glucose, POC Date/Time Value Ref Range Status 03/25/2019 12:05 117 (H) 65 - 99 mg/dL Final Comment: Performed by [facility] [address] [place] [address] 03/25/2019 06:52 107 (H) 65 - 99 mg/dL Final Comment: Performed by [facility] [address] [place] [address] 03/24/2019 20:11 112 (H) 65 - 99 mg/dL Final Comment: Performed by [facility] [address] [place] [address] 12/09/2018 18:05 113 (H) 70 - 109 mg/dL Final 12/09/2018 11:54 175 (H) 70 - 109 mg/dL Final 12/09/2018 06:09 117 (H) 70 - 109 mg/dL Final All pertinent labs and imaging have been reviewed. Please refer to the Assessment and Plan for details on management. I spent 36 minutes with the patient and on the patient's unit, with over 50% spent in coun seling and/or coordination of care. Please refer to the Assessment and Plan for details. Electronically signed by: Katey Hill MD 03/25/2019 15:50 Portions of this chart may have been created with [employer] voice recognition software. Occasi onal wrong-word or sound-alike substitutions may have occurred due to the inherent mckeon itations of voice recognition software. Please read the chart carefully and recognize, using context, where these substitutions have occurred su, Randy Nunez MD - 0 03/25/2019 1:47 PM PDT [facility] INPATIENT ROUNDING NOTE Date of Service: 03/25/2019 Rounding Physician: Randy Corrigan MD Patient Name: Estefani Tilley : 1945 Medical Record: [id number] Hospital Summary: Estefani Tilley is a 73 y.o. female with a PMHx of ESRD, HTN, Dm type 2, hypothyroidism, HLd, CVA who is under the care of Dr Muñoz at [facility] who dialyzes MWF admitted with possible osteo disccitis t11/t12 ASSESSMENT AND PLAN 1. ESRD/HD dependent Access is LUE AVF working well No indications for HD today Usually dialyzes MWF at [facility] She is below her EDW an EDW needs to be reset prior to discharge to 63kg 2. Anemia Hg at goal of 9-11 3. HTN Bp runs around a bit but average is acceptable Nifedipine was added yesterday 4. BMM On Hectoral Check Po4 SUBJECTIVE: Patient seen and examined Complaining of back pain No SOB or edema Review of Symptoms: A complete ROS was performed with all others negative x 10 systems Scheduled Meds: aspirin 81 mg Oral Daily [START ON 03/26/2019] cefepime 1 g Intravenous Daily cholecalciferol 4,000 Units Oral Daily doxercalciferol 0.5 mcg Oral Once per day on Wed furosemide 80 mg Oral Daily insulin lispro 0-12 Units Subcutaneous 4x Daily WC and HS labetalol 200 mg Oral BID levothyroxine 75 mcg Oral QAM AC losartan 100 mg Oral Daily NIFEdipine 60 mg Oral Daily olopatadine 1-2 drop Both Eyes BID pantoprazole 40 mg Oral QAM AC probiotic 1 capsule Oral BID vancomycin per pharmacy Other Pharmacy Consult Continuous Infusions: dextrose 10% OBJECTIVE Vitals Current 24 hour Min/Max BP 152/79 BP Min: 104/60 Max: 181/74 HR 64 Pulse Min: 58 Max: 98 Temp 35.8 C (96.5 F) Temp Min: 35.8 C (96.4 F) Max: 36.3 C (97.3 F) RR 16 Resp Min: 10 Max: 23 Sats SpO2: 97 % on L/min room air SpO2 Min: 93 % Max: 100 % 03/24 701 - 03/25 07 In: 250 [I.V.:250] Out: 1428 AOx3 JVp not elevated Chest is clear CVS RRR Abdomen Nt Ext no edema LUE AVF with good bruit and thrill Recent Labs Lab 03/25/19 0918 03/24/19 0518 03/23/19 1835 WBC 5.34 5.46 5.8 HGB 10.2* 9.9* 11.0* HCT 31.5* 31.3* 34.7 PLT 192 177 220 Recent Labs Lab 03/25/1991703/24/19 0518 03/23/19 1903 NA 135 141 137 K 5.0 4.4 4.2 CL 101 105 101 CO2 28 27 30 BUN 14 19 18 CREA 3.01* 4.02* 3.78* CALCIUM 8.0* 7.9* 8.5* ALBUMIN -- -- 3.6 Diagnostic Studies: Available data and images were reviewed personally. Significant results and findings are ad dressed here or in the Assessment and Plan. Please feel free to contact me with any questions Electronically signed by: Trace Corrigan MD, 03/25/2019, 13:47 ettlerNan, EMU FARMER - 03/25/2019 10:49 AM PDT SOCIAL WORK D/C PLAN: tbd NEXT STEPS: SW to follow up with pt and will follow for d/c recommendations. INTERVENTION: SW spoke with pt about housing concerns. Pt states that she has a place to g o to once she is out of the hospital. SW met with pt's sister, Yina, and her cousin, Keri, who were waiting in pt's room while s he was in dialysis. SW will need to follow up with pt re: d/c planning. Pt's sister and co dick related that pt mostly lives at Yina's house outside [facility], [place], but does not like to be tied down because she enjoys attending [place] festivals and many events. She does atten d dialysis weekly. Pt has a vehicle and is very independent. ASSESSMENT/CHART REVIEW:73 yr old femalewith a history of ESRD on hemodialysis, hypertens ion, type 2 diabetes, hypothyroidism,chronic anemia,hyperlipidemia, hx of stroke [facility] [place] noted on MRI concerning fo r osteomyelitis. D/C TRANSPORT: tbd BARRIERS TO D/C: none CONTACTS: Yina La Sister [phone] India Tilley Sister [phone] Cralos Gonzales M D - 03/25/2019 8:34 AM PDT Infectious Diseases Progress Note Pt. Name/Age/: Estefani Tilley 73 y.o. 1945 Med. Record Number: [id number] Date of admission: 03/24/2019 Patient admitted with thoracic vertebral discitis/osteomyelitis Date of service: 03/25/2019 Subjective: The patient chart and medications were reviewed in detail and the patient was s een and examined. Patient reports pain about the same No nausea vomiting diarrhea No fevers chills sweats No rash No shortness of breath or cough No tinnitus vertigo No headache, no weakness or numbness Medications: Antibiotics Vancomycin Cefepime Objective: Physical Exam: Wt. Admission: Weight: 63.5 kg (140 lb) Wt. Current: Weight: 62 kg (136 lb 11 oz) Temp: [35.8 C (96.4 F)-36.4 C (97.6 F)] 36.3 C (97.3 F) Pulse: [58-76] 65 Resp: [10-23] 17 BP: (104-188)/(39-89) 104/60 General: Nontoxic, not tachypneic HEENT: No thrush no conjunctival injection Cardiovascular: Regular rate and rhythm Respiratory: Clear, no wheezes Abdomen: Soft nontender positive bowel tones do not feel a spleen tip Genitourinary: Deferred Extremities/Musculoskeletal: No acute synovial changes or hip irritability Skin: No generalized rash or peripheral embolic stigmata Lymph: No neck or axillary adenopathy Neurological: Awake alert appropriate responsive motor intact Psychiatric: Normal affect, no confusion Lab: Recent Results (from the past 24 hour(s)) POC Glucose Result Value Ref Range Glucose, POC 107 (H) 65 - 99 mg/dL Culture, Aerobic + Anaerobic Result Value Ref Range Gram Stain Few Neutrophils No squamous epithelial cells seen No organisms seen Hepatitis B Core Ab, Total Result Value Ref Range Hepatitis B Core Ab, Total Negative Negative POC Glucose Result Value Ref Range Glucose, POC 112 (H) 65 - 99 mg/dL POC Glucose Result Value Ref Range Glucose, POC 107 (H) 65 - 99 mg/dL Assessment and Plan: #1 thoracic vertebral osteomyelitis/discitis T11-T12 No evidence epidural abscess White count 5.46, ESR 61, CRP 31.12, high sensitive Creatinine 4.02. No significant evidence systemic toxicity Temperature on admission, now down Underwent aspiration/biopsy Stains negative Cultures pending Neurologically stable On empiric vancomycin and cefepime Well-tolerated Continue antibiotics Follow-up cultures and adjust therapy as appropriate Anticipating 6 weeks intravenous antibiotics via secure access Watch closely, may still merit surgical intervention at some point If cultures negative, anticipate empiric therapy #2 fever Likely related to above Down over last 24 hours #3 reports penicillin allergy Cephalosporins well tolerated #4 end-stage renal disease Dialysis At risk for nosocomial pathogens Broad empiric therapy Doses adjusted #5 diabetes mellitus Requires optimal control Electronically signed by: Carlos Jansen, 03/25/2019 8:34 [facility] Jose Gamez, Soil Surveyor - 03/24/2019 10:46 PM PDTFormatting of this note might be different from the origin al. Pharmacy Progress Note VANCOMYCIN PER PHARMACY PROTOCOL: Day 1 Estefani Tilley is a 73 y.o. female receiving vancomycin for the treatment of osteomyelit is Assessment/Plan: 1. Vancomycin 1000 mg IV x 1 2. Target Trough: 15-20 mcg/ml 3. Random vancomycin level ordered for 03/24 @ 2200 4. Pharmacy to monitor daily and adjust dosage per protocol Subjective/Objective: Other antibiotics: cefepime Blood pressure 157/68, pulse 68, temperature 36.2 C (97.2 F), temperature source Tempor al, resp. rate 18, height 1.727 m (5' 8"), weight 62 kg (136 lb 11 oz), SpO2 94 %. Min/Max Temp past 24 hours:Temp Av.1 C (96.9 F) Min: 35.8 C (96.4 F) Max: 3 6.4 C (97.6 F) Recent Labs Lab 03/24/19 0518 03/23/19 1903 03/23/19 1835 WBC 5.46 -- 5.8 CREA 4.02* 3.78* -- BUN 19 18 -- Estimated Creatinine Clearance: 12 mL/min (A) (based on SCr of 4.02 mg/dL (H)). No results found for: SHANE HOOK I/O last 3 completed shifts: In: 800 [P.O.:300; I.V.:500] Out: 1428 No intake/output data recorded. Micro/Cultures: BCx - pending, BiopsyCx - pending Per P&T-approved Vancomycin Protocol Electronically signed by: Jose Menard, Soil Surveyor 03/24/2019 22:46 ladys [place] MSW - 9 4:53 PM PDT SOCIAL WORK D/C PLAN: tbd NEXT STEPS: SW to follow up with pt and will follow for d/c recommendations. INTERVENTION: SW met with pt's sister, Yina, and her cousin, Keri, who were waiting in pt' s room while she was in dialysis. SW will need to follow up with pt re: d/c planning. Pt's sister and cousin related that pt mostly lives at Yina's house outside [place], [place], but do es not like to be tied down because she enjoys attending [place] festivals and many events. She does attend dialysis weekly. Pt has a vehicle and is very independent. ASSESSMENT/CHART REVIEW:73 yr old female with a history of ESRD on hemodialysis, hypertensi on, type 2 diabetes, hypothyroidism, chronic anemia, hyperlipidemia, hx of stroke transferre d from [facility] for evaluation of T11-T12 lesion noted on MRI concerning for ost eomyelitis. D/C TRANSPORT: tbd BARRIERS TO D/C: none CONTACTS: Yina La Sister [phone] India Tilley Sister [phone] Katey Solis MD - 03/24/2019 3:53 PM PDTPatient seen and examined. Chart reviewed. Briefly, 73-year-old female with history of ESRD on hemodialysis, hypertension, type 2 diab etes, hypothyroidism, chronic anemia, hyperlipidemia with a history of stroke transferred fr om [facility] for evaluation of T11-T12 lesion noted on MRI concerning for ost eomyelitis. Infectious disease consulted. Patient plan for biopsy of the back lesions toda y. S: Patient complaining of back pain, no fever, no chest pain, no SOB, no other complains, s ays feels better than before admission. Constitutional: No distress. Head: Normocephalic and atraumatic. Eyes: Conjunctivae and EOM are normal. Pupils are equal, round, and reactive to light. ENT/Mouth: oral mucosa is moist. Neck: Normal range of motion. Neck supple. Cardiovascular: Normal rate and regular rhythm. Pulmonary/Chest: Normal Work of breathing, breath sounds normal. Abdominal: Soft, non tender, non distended, Bowel sounds are present. There is no rebound a nd no guarding. Back: tenderness to palpation in the lower thoracic and upper lumbar vertebral region with paraspinal tenderness. Musculoskeletal: Normal range of motion. There is +1 bilateral LE edema. Neurological: There are no new focal neurologic deficit. There is left lower extremity weak ness ( chronic per the patient) Psychiatric: AAOX 3 Skin: warm and dry. Assessment and plan: Suspected Osteomyelitis/discitis of T11, T12 vertebra infectious disease help appreciated , patient plan for biopsy today, awaiting neurosurgery recommendations. Restart antibiotics vancomycin and cefepime after biopsy. Follow cultures. Echocardiogram ordered. Patient w ill likely need IV antibiotics for 6 weeks. Hypertension blood pressure acceptable, continue home medications Diabetes-patient is not on any medications, continue insulin sliding scale, monitor blood s ugar ESRD on hemodialysis nephrology consulted, help appreciated, continue dialysis and manageme nt per hemodialysis Microcytic anemia likely secondary to-likely anemia of chronic disease, B12 and folic acid Patient scored high on depression screen, denies any suicidal ideation, does not have any p raza, consider antidepressants. 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 Plan of care discussed in detail with the patient. Dalia García, RN - 0 03/24/2019 1:21 PM PDTPt screened positive on depression/suicide screening. Pt states she h as wished she was in the last month, but has no plans and is not suicidal. [place] in formed. Pt also expressed concern over housing. ordered social work consult. Will cont inue to monitor pt. iona Camacho ma, PharmD - 03/24/2019 2:49 AM PDT Pharmacy Progress Note VANCOMYCIN PER PHARMACY PROTOCOL: Day 1 Estefani Tilley is a 73 y.o. 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 Assessment/Plan: 1. Vancomycin 1250 mg IV once given 03/23 @ [address] [facility]. 2. Target Trough: 15-20 mcg/ml 3. ESRD on HD. Outpatient HD schedule MWF. 4. Vancomycin Random as ordered with AM labs on 03/25 5. Pharmacy to monitor daily and adjust dosage per protocol Subjective/Objective: Other antibiotics: ceftriaxone. Blood pressure 197/89, pulse 67, temperature 35.9 C (96.7 F), temperature source Tempor al, resp. rate 16, SpO2 99 %. Min/Max Temp past 24 hours:Temp Av.6 C (97.9 F) Min: 35.9 C (96.7 F) Max: 3 7.2 C (99 F) Recent Labs Lab 03/23/19 1903 03/23/19 1835 WBC -- 5.8 CREA 3.78* -- BUN 18 -- Estimated Creatinine Clearance: 14 mL/min (A) (based on SCr of 3.78 mg/dL (H)). No results found for: SHANE HOOK No intake/output data recorded. No intake/output data recorded. Micro/Cultures: Microbiology Results (72 hrs) Procedure Component Value Units Date/Time Culture, Blood [[id number]] Collected: 03/23/192332 Order Status: Sent Lab Status: In process Updated: 03/23/192348 Specimen: Blood Culture, Blood [[id number]] Collected: 03/23/192254 Order Status: Sent Lab Status: In process Updated: 03/23/192336 Specimen: Blood Per P&T-approved Vancomycin Protocol Electronically signed by: Fiona Norman, PharmD 03/24/2019 2:49 documented in thi s encounter Plan of Treatment + +------+--------+ + + | Name | Type | Priori | Associated Diagnoses | Order Schedule | | | | ty | | | + +------+--------+ + + | CBC with | Lab | Routin | Osteomyelitis, | Expected: | | Differential | | e | unspecified site, | 04/07/2019, Expires: | | | | | unspecified type | 03/29/2020 | | | | | (HCC) | | + +------+--------+ + + | C-Reactive Protein | Lab | Routin | Osteomyelitis, | Expected: | | | | e | unspecified site, | 04/07/2019, Expires: | | | | | unspecified type | 03/29/2020 | | | | | (HCC) | | + +------+--------+ + + | Comprehensive | Lab | Routin | Osteomyelitis, | Expected: | | Metabolic Panel | | e | unspecified site, | 04/07/2019, Expires: | | | | | unspecified type | 03/29/2020 | | | | | (HCC) | | + +------+--------+ + + + + +--------+ + + | Name | Type | Priori | Associated Diagnoses | Order Schedule | | | | ty | | | + + +--------+ + + | Referral to Home | Outpatient | Routin | Osteomyelitis, | Ordered: 03/30/2019 | | Health - OUTPATIENT | Referral | e | unspecified site, | | | | | | unspecified type | | | | | | (HCC) | | + + +--------+ + + documented as of this encounter Procedures + +--------+ + + + | Procedure Name | Priori | Date/Time | Associated Diagnosis | Comments | | | ty | | | | + +--------+ + + + | POC GLUCOSE | Routin | 03/31/2019 | | Results for this | | | e | 1:23 PM | | procedure are in the | | | | PDT | | results section. | + +--------+ + + + | POC GLUCOSE | Routin | 03/31/2019 | | Results for this | | | e | 8:53 AM | | procedure are in the | | | | PDT | | results section. | + +--------+ + + + | CBC WITH | Routin | 03/31/2019 | | Results for this | | DIFFERENTIAL | e | 4:12 AM | | procedure are in the | | | | PDT | | results section. | + +--------+ + + + | VANCOMYCIN LEVEL | Routin | 03/31/2019 | | Results for this | | | e | 4:12 AM | | procedure are in the | | | | PDT | | results section. | + +--------+ + + + | BASIC METABOLIC | Routin | 03/31/2019 | | Results for this | | PANEL | e | 4:12 AM | | procedure are in the | | | | PDT | | results section. | + +--------+ + + + | POC GLUCOSE | Routin | 03/30/2019 | | Results for this | | | e | 9:14 PM | | procedure are in the | | | | PDT | | results section. | + +--------+ + + + | POC GLUCOSE | Routin | 03/30/2019 | | Results for this | | | e | 5:46 PM | | procedure are in the | | | | PDT | | results section. | + +--------+ + + + | POC GLUCOSE | Routin | 03/30/2019 | | Results for this | | | e | 12:49 PM | | procedure are in the | | | | PDT | | results section. | + +--------+ + + + | POC GLUCOSE | Routin | 03/30/2019 | | Results for this | | | e | 8:54 AM | | procedure are in the | | | | PDT | | results section. | + +--------+ + + + | CBC WITH MANUAL | Routin | 03/30/2019 | | Results for this | | DIFFERENTIAL | e | 5:27 AM | | procedure are in the | | | | PDT | | results section. | + +--------+ + + + | PHOSPHORUS | Routin | 03/30/2019 | | Results for this | | | e | 5:27 AM | | procedure are in the | | | | PDT | | results section. | + +--------+ + + + | MAGNESIUM | Routin | 03/30/2019 | | Results for this | | | e | 5:27 AM | | procedure are in the | | | | PDT | | results section. | + +--------+ + + + | BASIC METABOLIC | Routin | 03/30/2019 | | Results for this | | PANEL | e | 5:27 AM | | procedure are in the | | | | PDT | | results section. | + +--------+ + + + | POC GLUCOSE | Routin | 03/29/2019 | | Results for this | | | e | 9:09 PM | | procedure are in the | | | | PDT | | results section. | + +--------+ + + + | POC GLUCOSE | Routin | 03/29/2019 | | Results for this | | | e | 6:50 PM | | procedure are in the | | | | PDT | | results section. | + +--------+ + + + | POC GLUCOSE | Routin | 03/29/2019 | | Results for this | | | e | 12:24 PM | | procedure are in the | | | | PDT | | results section. | + +--------+ + + + | POC GLUCOSE | Routin | 03/29/2019 | | Results for this | | | e | 9:12 AM | | procedure are in the | | | | PDT | | results section. | + +--------+ + + + | CBC WITH MANUAL | Routin | 03/29/2019 | | Results for this | | DIFFERENTIAL | e | 5:19 AM | | procedure are in the | | | | PDT | | results section. | + +--------+ + + + | C-REACTIVE PROTEIN | Routin | 03/29/2019 | | Results for this | | | e | 5:19 AM | | procedure are in the | | | | PDT | | results section. | + +--------+ + + + | VANCOMYCIN LEVEL | Routin | 03/29/2019 | | Results for this | | | e | 5:19 AM | | procedure are in the | | | | PDT | | results section. | + +--------+ + + + | BASIC METABOLIC | Routin | 03/29/2019 | | Results for this | | PANEL | e | 5:19 AM | | procedure are in the | | | | PDT | | results section. | + +--------+ + + + | POC GLUCOSE | Routin | 03/28/2019 | | Results for this | | | e | 9:06 PM | | procedure are in the | | | | PDT | | results section. | + +--------+ + + + | IR PLACEMENT | Routin | 03/28/2019 | | Results for this | | TUNNELED CENTRAL | e | 3:00 PM | | procedure are in the | | VENOUS CATHETER > 5 | | PDT | | results section. | | YEARS | | | | | + +--------+ + + + | IR CATH PLACEMENT / | | 03/28/2019 | need for iv access | | | INSERTION / REMOVAL | | 2:36 PM | | | | / EXCHANGE | | PDT | | | + +--------+ + + + | POC GLUCOSE | Routin | 03/28/2019 | | Results for this | | | e | 11:22 AM | | procedure are in the | | | | PDT | | results section. | + +--------+ + + + | POC GLUCOSE | Routin | 03/28/2019 | | Results for this | | | e | 7:09 AM | | procedure are in the | | | | PDT | | results section. | + +--------+ + + + | CBC NO DIFFERENTIAL | Routin | 03/28/2019 | | Results for this | | | e | 4:58 AM | | procedure are in the | | | | PDT | | results section. | + +--------+ + + + | BASIC METABOLIC | Routin | 03/28/2019 | | Results for this | | PANEL | e | 4:58 AM | | procedure are in the | | | | PDT | | results section. | + +--------+ + + + | POC GLUCOSE | Routin | 03/27/2019 | | Results for this | | | e | 8:38 PM | | procedure are in the | | | | PDT | | results section. | + +--------+ + + + | POC GLUCOSE | Routin | 03/27/2019 | | Results for this | | | e | 5:17 PM | | procedure are in the | | | | PDT | | results section. | + +--------+ + + + | POC GLUCOSE | Routin | 03/27/2019 | | Results for this | | | e | 1:58 PM | | procedure are in the | | | | PDT | | results section. | + +--------+ + + + | POC GLUCOSE | Routin | 03/27/2019 | | Results for this | | | e | 6:39 AM | | procedure are in the | | | | PDT | | results section. | + +--------+ + + + | VANCOMYCIN LEVEL | Routin | 03/27/2019 | | Results for this | | | e | 5:12 AM | | procedure are in the | | | | PDT | | results section. | + +--------+ + + + | POC GLUCOSE | Routin | 03/26/2019 | | Results for this | | | e | 8:41 PM | | procedure are in the | | | | PDT | | results section. | + +--------+ + + + | POC GLUCOSE | Routin | 03/26/2019 | | Results for this | | | e | 5:33 PM | | procedure are in the | | | | PDT | | results section. | + +--------+ + + + | POC GLUCOSE | Routin | 03/26/2019 | | Results for this | | | e | 12:09 PM | | procedure are in the | | | | PDT | | results section. | + +--------+ + + + | PHOSPHORUS | Routin | 03/26/2019 | | Results for this | | | e | 11:44 AM | | procedure are in the | | | | PDT | | results section. | + +--------+ + + + | POC GLUCOSE | Routin | 03/26/2019 | | Results for this | | | e | 6:49 AM | | procedure are in the | | | | PDT | | results section. | + +--------+ + + + | VITAMIN B12+FOLATE | Routin | 03/26/2019 | | Results for this | | | e | 4:11 AM | | procedure are in the | | | | PDT | | results section. | + +--------+ + + + | CBC NO DIFFERENTIAL | Routin | 03/26/2019 | | Results for this | | | e | 4:11 AM | | procedure are in the | | | | PDT | | results section. | + +--------+ + + + | VANCOMYCIN LEVEL | Routin | 03/26/2019 | | Results for this | | | e | 4:11 AM | | procedure are in the | | | | PDT | | results section. | + +--------+ + + + | BASIC METABOLIC | Routin | 03/26/2019 | | Results for this | | PANEL | e | 4:11 AM | | procedure are in the | | | | PDT | | results section. | + +--------+ + + + | VANCOMYCIN LEVEL | Routin | 03/25/2019 | | Results for this | | | e | 9:35 PM | | procedure are in the | | | | PDT | | results section. | + +--------+ + + + | POC GLUCOSE | Routin | 03/25/2019 | | Results for this | | | e | 8:37 PM | | procedure are in the | | | | PDT | | results section. | + +--------+ + + + | POC GLUCOSE | Routin | 03/25/2019 | | Results for this | | | e | 4:53 PM | | procedure are in the | | | | PDT | | results section. | + +--------+ + + + | POC GLUCOSE | Routin | 03/25/2019 | | Results for this | | | e | 12:05 PM | | procedure are in the | | | | PDT | | results section. | + +--------+ + + + | CBC NO DIFFERENTIAL | Routin | 03/25/2019 | | Results for this | | | e | 9:18 AM | | procedure are in the | | | | PDT | | results section. | + +--------+ + + + | C-REACTIVE PROTEIN | Routin | 03/25/2019 | | Results for this | | | e | 9:18 AM | | procedure are in the | | | | PDT | | results section. | + +--------+ + + + | BASIC METABOLIC | Routin | 03/25/2019 | | Results for this | | PANEL | e | 9:18 AM | | procedure are in the | | | | PDT | | results section. | + +--------+ + + + | ECHO COMPLETE | Routin | 03/25/2019 | | Results for this | | | e | 8:33 AM | | procedure are in the | | | | PDT | | results section. | + +--------+ + + + | POC GLUCOSE | Routin | 03/25/2019 | | Results for this | | | e | 6:52 AM | | procedure are in the | | | | PDT | | results section. | + +--------+ + + + | POC GLUCOSE | Routin | 03/24/2019 | | Results for this | | | e | 8:11 PM | | procedure are in the | | | | PDT | | results section. | + +--------+ + + + | HEPATITIS B CORE AB, | STAT | 03/24/2019 | | Results for this | | TOTAL | | 4:10 PM | | procedure are in the | | | | PDT | | results section. | + +--------+ + + + | CT GUIDED FINE | Routin | 03/24/2019 | | Results for this | | NEEDLE ASPIRATION | e | 3:14 PM | | procedure are in the | | | | PDT | | results section. | + +--------+ + + + | CULTURE, AEROBIC + | Routin | 03/24/2019 | | Results for this | | ANAEROBIC | e | 3:14 PM | | procedure are in the | | | | PDT | | results section. | + +--------+ + + + | CULTURE, FUNGUS, | Routin | 03/24/2019 | | Results for this | | SMEAR | e | 3:14 PM | | procedure are in the | | | | PDT | | results section. | + +--------+ + + + | JIMMIE ARTEAGA SMEAR | Routin | 03/24/2019 | | Results for this | | | e | 3:14 PM | | procedure are in the | | | | PDT | | results section. | + +--------+ + + + | POC GLUCOSE | Routin | 03/24/2019 | | Results for this | | | e | 11:03 AM | | procedure are in the | | | | PDT | | results section. | + +--------+ + + + | POC GLUCOSE | Routin | 03/24/2019 | | Results for this | | | e | 6:36 AM | | procedure are in the | | | | PDT | | results section. | + +--------+ + + + | PROTIME INR | Routin | 03/24/2019 | | Results for this | | | e | 5:18 AM | | procedure are in the | | | | PDT | | results section. | + +--------+ + + + | CBC WITH | Routin | 03/24/2019 | | Results for this | | DIFFERENTIAL | e | 5:18 AM | | procedure are in the | | | | PDT | | results section. | + +--------+ + + + | BASIC METABOLIC | Routin | 03/24/2019 | | Results for this | | PANEL | e | 5:18 AM | | procedure are in the | | | | PDT | | results section. | + +--------+ + + + documented in this encounter Results POC Glucose (03/31/2019 1:23 PM PDT) + + + + --+ + | Component | Value | Ref Range | Performed | Pathologist | | | | | At | Signature | + + + + --+ + | Glucose, | 90Comment: Performed by | 65 - 99 mg/dL | [facility] | | | POC | [facility] [address], | | [facility]CR[facility] | | | | [place] [address] | | HEART | | | |Performed by [facility] [address], [place] [address] | | MEDICAL | | | | | | CENTER | | | | | | LABORATORY | | | | | | [facility] | | + + + + --+ + + + | Specimen | + + | Blood specimen | | (specimen) | + + + + + + + | Performing | Address | City/State/Zipcode | Phone Number | | Organization | | | | + + + + + | [facility] | [address] | [place] [address] | | | [facility] | | | | | [place] [place] | | | | + + + + + POC Glucose (03/31/2019 8:53 AM PDT) + + + + --+ + | Component | Value | Ref Range | Performed | Pathologist | | | | | At | Signature | + + + + --+ + | Glucose, | 89Comment: Performed by | 65 - 99 mg/dL | [facility] | | | POC | [facility] [address], | | [place]CR[facility] | | | | [place], [place] | | HEART | | | |Performed by [facility] [address], [place], [place] | | MEDICAL | | | | | | CENTER | | | | | | LABORATORY | | | | | | [facility] | | + + + + --+ + + + | Specimen | + + | Blood specimen | | (specimen) | + + + + + + + | Performing | Address | City/State/Zipcode | Phone Number | | Organization | | | | + + + + + | [facility] | [address] | [place], [place] | | | [facility] | | | | | LABORATORY [facility] | | | | + + + + + Basic Metabolic Panel (03/31/2019 4:12 AM PDT) + + + + + + | Component | Value | Ref Range | Performed | Pathologist | | | | | At | Signature | + + + + + + | Na | 135 | 135 - 145 | [facility] | | | | | mmol/L | [facility] | | | | | | HEART | | | | | | MEDICAL | | | | | | CENTER | | | | | | LABORATORY | | | | | | [facility] | | + + + + + + | K | 3.6 | 3.5 - 5.0 | [facility] | | | | | mmol/L | [facility] | | | | | | HEART | | | | | | MEDICAL | | | | | | CENTER | | | | | | LABORATORY | | | | | | [facility] | | + + + + + + | Cl | 101 | 99 - 109 mmol/L | [facility] | | | | | | [facility] | | | | | | HEART | | | | | | MEDICAL | | | | | | CENTER | | | | | | LABORATORY | | | | | | [facility] | | + + + + + + | CO2 | 29 (H) | 21 - 28 mmol/L | [facility] | | | | | | [facility] | | | | | | HEART | | | | | | MEDICAL | | | | | | CENTER | | | | | | LABORATORY | | | | | | [facility] | | + + + + + + | Anion Gap | 5 | 5 - 16 mmol/L | [facility] | | | | | | [facility] | | | | | | HEART | | | | | | MEDICAL | | | | | | CENTER | | | | | | LABORATORY | | | | | | [facility] | | + + + + + + | Calcium | 8.3 (L) | 8.5 - 10.2 | [facility] | | | | | mg/dL | [facility] | | | | | | HEART | | | | | | MEDICAL | | | | | | CENTER | | | | | | LABORATORY | | | | | | [facility] | | + + + + + + | BUN | 16 | 8 - 25 mg/dL | [facility] | | | | | | [facility] | | | | | | HE[facility] | | | | | | MEDICAL | | | | | | CENTER | | | | | | LABORATORY | | | | | | [facility] | | + + + + + + | Creatinine | 3.76 (H) | 0.50 - 1.00 | [facility] | | | | | mg/dL | [facility] | | | | | | HEART | | | | | | MEDICAL | | | | | | CENTER | | | | | | LABORATORY | | | | | | [facility] | | + + + + + + | Glucose | 84 | 65 - 99 mg/dL | [facility] | | | | | | [facility] | | | | | | HEART | | | | | | MEDICAL | | | | | | CENTER | | | | | | LABORATORY | | | | | | [facility] | | + + + + + + | Estimated | 11 (L)Comment: eGFR<60 | >=90 | [facility] | | | GFR | consistent with impaired | mL/min/1.73m2 | [facility] | | | | kidney function.For | | HEART | | | | [place], | | MEDICAL | | | | multiply the calculated | | CENTER | | | | GFR by 1.210Performed by | | LABORATORY | | | | [facility] [address] [place], | | [place] | | | | [place] [address] | | | | + + + + + + + + | Specimen | + + | Blood specimen | | (specimen) | + + + + + + + | Performing | Address | City/State/Zipcode | Phone Number | | Organization | | | | + + + + + | [facility] | [address] | [place] [address] | | | [facility] | | | | | [place] | | | | + + + + + CBC with Differential (03/31/2019 4:12 AM PDT) + + + +------- ------+ + | Component | Value | Ref Range | Perfor med | Pathologist | | | | | At | Signature | + + + +------- ------+ + | WBC | 4.60 | 3.80 - 11.00 | [facility] | | | | | K/uL | [facility] | | | | | | HEART | | | | | | [facility] | | | | | | CENTER | | | | | | LABORA TORY | | | | | | [facility] | | + + + +------- ------+ + | RBC | 2.97 (L) | 3.70 - 5.10 | [facility] | | | | | M/uL | [facility] | | | | | | HEART | | | | | | [facility]ICA [facility] | | | | | | CENTER | | | | | | LABORA TORY | | | | | | [facility] | | + + + +------- ------+ + | Hemoglobin | 9.7 (L) | 11.3 - 15.5 | [facility] | | | | | g/dL | [facility] | | | | | [facility] | | | | | | [facility] | | | | | | CENTER | | | | | | LAB[facility]ORY | | | | | | [facility] | | + + + +------- ------+ + | Hct | 30.3 (L) | 34.0 - 46.0 % | [facility] | | | | | | [facility] | | | | | | [facility] | | | | | | [facility] | | | | | | CENTER | | | | | | LABORA TORY | | | | | | [facility] | | + + + +------- ------+ + | MCV | 102.0 (H) | 80.0 - 100.0 fL | [facility] | | | | | | [facility] | | | | | | [facility] | | | | | | [facility] | | | | | | CENTER | | | | | | LABORA TORY | | | | | | [facility] | | + + + +------- ------+ + | MCH | 32.7 | 27.0 - 34.0 pg | [facility] | | | | | | [facility] | | | | | | [facility] | | | | | | [facility] | | | | | | CENTER | | | | | | LABORA TORY | | | | | | [facility] | | + + + +------- ------+ + | MCHC | 32.0 | 32.0 - 35.5 | [facility] | | | | | g/dL | [facility] | | | | | | [facility] | | | | | | [facility] | | | | | | CENTER | | | | | | LABORA TORY | | | | | | [facility] | | + + + +------- ------+ + | RDW-CV | 14.8 | 11.0 - 15.5 % | [facility] | | | | | | [facility] | | | | | | [facility] | | | | | | [facility] | | | | | | CENTER | | | | | | LABORA TORY | | | | | | [facility] | | + + + +------- ------+ + | Platelet | 176 | 150 - 400 K/uL | [facility] | | | Count | | | [facility] | | | | | | HEART | | | | | | [facility] | | | | | | CENTER | | | | | | LABORA TORY | | | | | | [facility] | | + + + +------- ------+ + | MPV | 10.1 | 9.3 - 12.7 fL | [facility] | | | | | | [facility] | | | | | | [facility] | | | | | | [facility] | | | | | | CENTER | | | | | | LABORA TORY | | | | | | [facility] | | + + + +------- ------+ + | % | 56.0 | 40.0 - 75.0 % | [facility] | | | Neutrophils | | | [facility] | | | | | | HEART | | | | | | [facility] | | | | | | CENTER | | | | | | LABORA TORY | | | | | | [facility] | | + + + +------- ------+ + | % | 30.0 | 15.0 - 48.0 % | [facility] | | | Lymphocytes | | | [facility] | | | | | | HEART | | | | | | [facility] | | | | | | CENTER | | | | | | LABORA TORY | | | | | | [facility] | | + + + +------- ------+ + | % Monocytes | 8.3 | 0.0 - 12.0 % | [facility] | | | | | | [facility] | | | | | | [facility] | | | | | | [facility] | | | | | | CENTER | | | | | | LABORA TORY | | | | | | [facility] | | + + + +------- ------+ + | % | 4.6 | 0.0 - 7.0 % | [facility] | | | Eosinophils | | | [facility] | | | | | | HEART | | | | | | [facility] | | | | | | CENTER | | | | | | LABORA TORY | | | | | | [facility] | | + + + +------- ------+ + | % Basophils | 0.9 | 0.0 - 2.0 % | [facility] | | | | | | [facility] | | | | | | [facility] | | | | | | [facility] | | | | | | CENTER | | | | | | LABORA TORY | | | | | | [facility] | | + + + +------- ------+ + | % Immature | 0.2Comment: Immature | 0.0 - 1.0 % | [facility] | | | Granulocyte | granulocytes are | | [facility] | | | s | left-shifted | | HEART | | | | granulocytes and do not | | [facility] | | | | equal blasts. They are | | CENTER | | | | composed of | | LAB[facility] | | | | metamyelocytes, | | [facility] | | | | myelocytes, and | | | | | | promyelocytes. Their | | | | | | presence can be seen in | | | | | | infection, inflammation, | | | | | | certain medication's | | | | | | effect, or other bone | | | | | | marrow stimuli. | | | | | | Occasionally, | | | | | | persistent increase in | | | | | | immature granulocytes | | | | | | may be part of myeloid | | | | | | neoplastic process. | | | | | | Correlation with | | | | | | clinical findings is | | | | | | recommended for complete | | | | | | interpretation of this | | | | | | parameter. Please also | | | | | | note that peripheral | | | | | | blood with immature | | | | | | granulocytes >5% will be | | | | | | manually reviewed by | | | | | | lab personnel and/or | | | | | | pathologists. | | | | + + + +------- ------+ + | Absolute | 2.58 | 1.90 - 7.40 | [facility] | | | Neutrophils | | K/uL | [facility] | | | | | | HEART | | | | | | [facility] | | | | | | CENTER | | | | | | LABORA TORY | | | | | | [facility] | | + + + +------- ------+ + | Absolute | 1.38 | 1.00 - 3.90 | [facility] | | | Lymphocytes | | K/uL | [facility] | | | | | | HEART | | | | | | [facility] | | | | | | CENTER | | | | | | LABORA TORY | | | | | | [facility] | | + + + +------- ------+ + | Absolute | 0.38 | 0.00 - 0.80 | [facility] | | | Monocytes | | K/uL | [facility] | | | | | | HEART | | | | | | [facility] | | | | | | CENTER | | | | | | LABORA TORY | | | | | | [facility] | | + + + +------- ------+ + | Absolute | 0.21 | 0.00 - 0.50 | [facility] | | | Eosinophils | | K/uL | [facility] | | | | | | HEART | | | | | | [facility] | | | | | | CENTER | | | | | | LABORA TORY | | | | | | [facility] | | + + + +------- ------+ + | Absolute | 0.04 | 0.00 - 0.10 | [facility] | | | Basophils | | K/uL | [facility] | | | | | | HEART | | | | | | [facility] | | | | | | CENTER | | | | | | LABORA TORY | | | | | | [facility] | | + + + +------- ------+ + | Absolute | 0.01Comment: Performed | 0.00 - 0.03 | [facility] | | | Immature | by [facility] [address], | K/uL | [facility] | | | Granulocyte | [place] [address] | | HEART | | | s |Performed by [facility] [address], [place] [address] | | [facility] | | | | | | CENTER | | | | | | LABORA TORY | | | | | | CERN[facility] | | + + + +------- ------+ + + + | Specimen | + + | Blood specimen | | (specimen) | + + + + + + + | Performing | Address | City/State/Zipcode | Phone Number | | Organization | | | | + + + + + | [facility] | [address] | [place] [address] | | | [facility] | | | | | LABORATORY [facility] | | | | + + + + + Vancomycin Level (03/31/2019 4:12 AM PDT) + + + + + + | Component | Value | Ref Range | Performed | Pathologist | | | | | At | Signature | + + + + + + | Vancomycin | 19.0Comment: Trough: | ug/mL | [facility] | | | Random | 10.0 to 20.0 ug/mLPeak: | | [facility] | | | | 25.0 to 40.0 ug/mLToxic | | HEART | | | | Level: >50.0 ug/mLCDC | | MEDICAL | | | | has established criteria | | CENTER | | | | for use of Vancomycin | | LABORATORY | | | | due to increasing | | [facility] | | | | microbial resistance. | | | | | | Consult pharmacist or | | | | | | Microbiology for more | | | | | | information.Performed by | | | | | | [facility] [address], | | | | | | [place] [address] | | | | + + + + + + + + | Specimen | + + | Blood specimen | | (specimen) | + + + + + + + | Performing | Address | City/State/Zipcode | Phone Number | | Organization | | | | + + + + + | [facility] | [address] | [place] [address] | | | HEART [facility] | | | | | LABORATORY [facility] | | | | + + + + + POC Glucose (03/30/2019 9:14 PM PDT) + + + + + + | Component | Value | Ref Range | Performed | Pathologist | | | | | At | Signature | + + + + + + | Glucose, | 200 (H)Comment: | 65 - 99 mg/dL | [facility] | | | POC | Performed by [facility] [address] | | SACR[facility] | | | | [address] [place], [place] | | HEART | | | | [address] | | MEDICAL | | | | | | CENTER | | | | | | LABORATORY | | | | | | [place]ERN[place] | | + + + + + + + + | Specimen | + + | Blood specimen | | (specimen) | + + + + + + + | Performing | Address | City/State/Zipcode | Phone Number | | Organization | | | | + + + + + | [facility] | [address] | [place] [address] | | | [facility] | | | | | LABORATORY [facility] | | | | + + + + + POC Glucose (03/30/2019 5:46 PM PDT) + + + + + + | Component | Value | Ref Range | Performed | Pathologist | | | | | At | Signature | + + + + + + | Glucose, | 111 (H)Comment: | 65 - 99 mg/dL | [facility] | | | POC | Performed by [facility] [address] | | SACRED | | | | [address] [place], [place] | | HEART | | | | [address] | | MEDICAL | | | | | | CENTER | | | | | | LABORATORY | | | | | | CERNER | | + + + + + + + + | Specimen | + + | Blood specimen | | (specimen) | + + + + + + + | Performing | Address | City/State/Zipcode | Phone Number | | Organization | | | | + + + + + | [facility] | [address] | [place] [address] | | | [facility] | | | | | LABORATORY [facility] | | | | + + + + + POC Glucose (03/30/2019 12:49 PM PDT) + + + + + + | Component | Value | Ref Range | Performed | Pathologist | | | | | At | Signature | + + + + + + | Glucose, | 146 (H)Comment: | 65 - 99 mg/dL | [facility] | | | POC | Performed by [facility] [address] | | [facility] | | | | [address], [place] | | HEART | | | | [address] | | MEDICAL | | | | | | CENTER | | | | | | LABORATORY | | | | | | CERNER | | + + + + + + + + | Specimen | + + | Blood specimen | | (specimen) | + + + + + + + | Performing | Address | City/State/Zipcode | Phone Number | | Organization | | | | + + + + + | [facility] | [address] | [place] [address] | | | [facility] | | | | | LABORATORY [facility]ESI | | | | + + + + + POC Glucose (03/30/2019 8:54 AM PDT) + + + + + + | Component | Value | Ref Range | Performed | Pathologist | | | | | At | Signature | + + + + + + | Glucose, | 105 (H)Comment: | 65 - 99 mg/dL | [facility] | | | POC | Performed by [facility] [address] | | SACRED | | | | [address], [place] | | HEART | | | | [address] | | MEDICAL | | | | | | CENTER | | | | | | LABORATORY | | | | | | CERNER | | + + + + + + + + | Specimen | + + | Blood specimen | | (specimen) | + + + + + + + | Performing | Address | City/State/Zipcode | Phone Number | | Organization | | | | + + + + + | [facility] | [address] | [place], [place] | | | HEART [facility] | | | | | LABORATORY C[facility] | | | | + + + + + Phosphorus (03/30/2019 5:27 AM PDT) + + + +-------- -----+ + | Component | Value | Ref Range | Perform ed | Pathologist | | | | | At | Signature | + + + +-------- -----+ + | Phosphorus | 3.4Comment: Performed | 2.6 - 4.4 mg/dL | [facility] | | | | by [facility] [address], | | SACRED | | | | [place] | | HEART | | | |Performed by [facility] [address], [place], [place] | | MEDICAL | | | | | | CENTER | | | | | | LABORAT ORFausto | | | | | | CERNER | | + + + +-------- -----+ + + + | Specimen | + + | Blood specimen | | (specimen) | + + + + + + + | Performing | Address | City/State/Zipcode | Phone Number | | Organization | | | | + + + + + | [facility] | [address] | [place] [address] | | | [facility] | | | | | [place] | | | | + + + + + Magnesium (03/30/2019 5:27 AM PDT) + + + +--------- ----+ + | Component | Value | Ref Range | Performe d | Pathologist | | | | | At | Signature | + + + +--------- ----+ + | Magnesium | 1.9Comment: Performed | 1.7 - 2.4 mg/dL | [facility] | | | | by [facility] [address], | | SACRED | | | | [place] [address] | | HEART | | | |Performed by [facility] [address], [place] [address] | | MEDICAL | | | | | | CENTER | | | | | | LABORATO RY | | | | | | CERNER | | + + + +--------- ----+ + + + | Specimen | + + | Blood specimen | | (specimen) | + + + + + + + | Performing | Address | City/State/Zipcode | Phone Number | | Organization | | | | + + + + + | [facility] | [address] | [place] [address] | | | [facility] | | | | | LABORATORY JESI | | | | + + + + + Basic Metabolic Panel (03/30/2019 5:27 AM PDT) + + + + + + | Component | Value | Ref Range | Performed | Pathologist | | | | | At | Signature | + + + + + + | Na | 137 | 135 - 145 | [facility] | | | | | mmol/L | [facility] | | | | | | HEART | | | | | | MEDICAL | | | | | | CENTER | | | | | | LABORATORY | | | | | | CERNER | | + + + + + + | K | 3.5 | 3.5 - 5.0 | [facility] | | | | | mmol/L | [facility] | | | | | | HEART | | | | | | MEDICAL | | | | | | CENTER | | | | | | LABORATORY | | | | | | CERNER | | + + + + + + | Cl | 102 | 99 - 109 mmol/L | [facility] | | | | | | [facility] | | | | | | HEART | | | | | | MEDICAL | | | | | | CENTER | | | | | | LABORATORY | | | | | | CERNER | | + + + + + + | CO2 | 29 (H) | 21 - 28 mmol/L | [facility] | | | | | | [facility] | | | | | | HEART | | | | | | MEDICAL | | | | | | CENTER | | | | | | LABORATORY | | | | | | CERNER | | + + + + + + | Anion Gap | 6 | 5 - 16 mmol/L | [facility] | | | | | | [facility] | | | | | | HEART | | | | | | MEDICAL | | | | | | CENTER | | | | | | LABORATORY | | | | | | C[facility]ER | | + + + + + + | Calcium | 7.7 (L) | 8.5 - 10.2 | [facility] | | | | | mg/dL | [facility] | | | | | | HEART | | | | | | MEDICAL | | | | | | CENTER | | | | | | LABORATORY | | | | | | CERNER | | + + + + + + | BUN | 10 | 8 - 25 mg/dL | [facility] | | | | | | [facility] | | | | | | HEART | | | | | | MEDICAL | | | | | | CENTER | | | | | | LABORATORY | | | | | | C[facility]ER | | + + + + + + | Creatinine | 2.79 (H) | 0.50 - 1.00 | [facility] | | | | | mg/dL | [facility] | | | | | | HEART | | | | | | MEDICAL | | | | | | CENTER | | | | | | LABORATORY | | | | | | C[facility] | | + + + + + + | Glucose | 86 | 65 - 99 mg/dL | [facility] | | | | | | [facility] | | | | | | HEART | | | | | | MEDICAL | | | | | | CENTER | | | | | | LABORATORY | | | | | | C[facility] | | + + + + + + | Estimated | 16 (L)Comment: eGFR<60 | >=90 | [facility] | | | GFR | consistent with impaired | mL/min/1.73m2 | [facility] | | | | kidney function.For | | HEART | | | | Americans, | | MEDICAL | | | | multiply the calculated | | CENTER | | | | GFR by 1.210Performed by | | LABORATORY | | | | [facility] [address], | | [place] | | | | [place] [address] | | | | + + + + + + + + | Specimen | + + | Blood specimen | | (specimen) | + + + + + + + | Performing | Address | City/State/Zipcode | Phone Number | | Organization | | | | + + + + + | [facility] | [address] | [place] [address] | | | [facility] | | | | | [place] | | | | + + + + + CBC with Manual Differential (03/30/2019 5:27 AM PDT) + + + +------- ------+ + | Component | Value | Ref Range | Perfor med | Pathologist | | | | | At | Signature | + + + +------- ------+ + | WBC | 4.43 | 3.80 - 11.00 | [facility] | | | | | K/uL | [facility] | | | | | | HEART | | | | | | [facility] | | | | | | CENTER | | | | | | LABORA TORY | | | | | | [place] | | + + + +------- ------+ + | RBC | 3.12 (L) | 3.70 - 5.10 | [facility] | | | | | M/uL | [facility] | | | | | | HEART | | | | | | [facility] | | | | | | CENTER | | | | | | LABORA TORY | | | | | | [place] | | + + + +------- ------+ + | Hemoglobin | 10.3 (L) | 11.3 - 15.5 | [facility] | | | | | g/dL | [facility] | | | | | | HEART | | | | | | [facility] | | | | | | CENTER | | | | | | LABORA TORY | | | | | | [facility] | | + + + +------- ------+ + | Hct | 31.6 (L) | 34.0 - 46.0 % | [facility] | | | | | | [facility] | | | | | | HEART | | | | | | [facility] | | | | | | CENTER | | | | | | LABORA TORY | | | | | | [place] | | + + + +------- ------+ + | MCV | 101.3 (H) | 80.0 - 100.0 fL | [facility] | | | | | | [facility] | | | | | | HEART | | | | | | [facility] | | | | | | CENTER | | | | | | LABORA TORY | | | | | | [facility] | | + + + +------- ------+ + | MCH | 33.0 | 27.0 - 34.0 pg | [facility] | | | | | | [facility] | | | | | | HEART | | | | | | [facility] | | | | | | CENTER | | | | | | LABORA TORY | | | | | | [facility] | | + + + +------- ------+ + | MCHC | 32.6 | 32.0 - 35.5 | [facility] | | | | | g/dL | [facility] | | | | | | HEART | | | | | | [facility] | | | | | | CENTER | | | | | | LABORA TORY | | | | | | [facility] | | + + + +------- ------+ + | RDW-CV | 15.0 | 11.0 - 15.5 % | [facility] | | | | | | [facility] | | | | | | HEART | | | | | | [facility] | | | | | | CENTER | | | | | | LABORA TORY | | | | | | [facility] | | + + + +------- ------+ + | Platelet | 174 | 150 - 400 K/uL | [facility] | | | Count | | | [facility] | | | | | | HEART | | | | | | [facility] | | | | | | CENTER | | | | | | LABORA TORY | | | | | | [facility] | | + + + +------- ------+ + | MPV | 9.8 | 9.3 - 12.7 fL | [facility] | | | | | | [facility] | | | | | | HEART | | | | | | [facility] | | | | | | CENTER | | | | | | LABORA TORY | | | | | | C[facility]ER | | + + + +------- ------+ + | % Segmented | 64.0 | 38.0 - 70.0 % | [facility] | | | | | | [facility] | | | Neutrophils | | | HEART | | | | | | [facility]ICA [facility] | | | | | | CENTER | | | | | | LABORA TORY | | | | | | C[facility]ER | | + + + +------- ------+ + | % | 26.0 | 15.0 - 48.0 % | [facility] | | | Lymphocytes | | | [facility] | | | | | | HEART | | | | | | [facility] | | | | | | CENTER | | | | | | LABORA TORY | | | | | | C[facility] | | + + + +------- ------+ + | % Monocytes | 5.0 | 0.0 - 12.0 % | [facility] | | | | | | [facility] | | | | | | HEART | | | | | | [facility] | | | | | | CENTER | | | | | | LABORA TORY | | | | | | C[facility]ER | | + + + +------- ------+ + | % | 3.0 | 0.0 - 7.0 % | [facility] | | | Eosinophils | | | [facility] | | | | | | HEART | | | | | | [facility] | | | | | | CENTER | | | | | | LABORA TORY | | | | | | [facility] | | + + + +------- ------+ + | % Basophils | 2.0 | 0.0 - 2.0 % | [facility] | | | | | | [facility] | | | | | | HEART | | | | | | [facility] | | | | | | CENTER | | | | | | LABORA TORY | | | | | | [facility] | | + + + +------- ------+ + | Absolute | 2.84 | 1.80 - 7.70 | [facility] | | | Segmented | | K/uL | [facility] | | | Neutrophils | | | HEART | | | | | | [facility] | | | | | | CENTER | | | | | | LABORA TORY | | | | | | C[facility]ER | | + + + +------- ------+ + | Absolute | 1.15 | 1.00 - 3.90 | [facility] | | | Lymphocytes | | K/uL | [facility] | | | | | | HEART | | | | | | [facility] | | | | | | CENTER | | | | | | LABORA TORY | | | | | | [facility] | | + + + +------- ------+ + | Absolute | 0.13 | 0.00 - 0.50 | [facility] | | | Eosinophils | | K/uL | [facility] | | | | | | HEART | | | | | | MEDICA [facility] | | | | | | CENTER | | | | | | LABORA TORY | | | | | | [facility] | | + + + +------- ------+ + | Absolute | 0.09 | 0.00 - 0.10 | [facility] | | | Basophils | | K/uL | [facility] | | | | | | HEART | | | | | | [facility] | | | | | | CENTER | | | | | | LABORA TORY | | | | | | [facility] | | + + + +------- ------+ + | Absolute | 0.22 | 0.00 - 0.80 | [facility] | | | Monocytes | | K/uL | [facility] | | | | | | HEART | | | | | | MEDICA L | | | | | | CENTER | | | | | | LABORA TORY | | | | | | [facility]ER | | + + + +------- ------+ + | Platelet | Adequate | | [facility] | | | Estimate | | | [facility] | | | | | | HEART | | | | | | MEDICA L | | | | | | CENTER | | | | | | LABORA TORY | | | | | | [facility] | | + + + +------- ------+ + | RBC | 1+ | | [facility] | | | Macrocytes | | | [facility]CR[facility] | | | | | | HEART | | | | | | MEDICA L | | | | | | CENTER | | | | | | LABORA TORY | | | | | | [facility] | | + + + +------- ------+ + | Total | 100Comment: Performed | | [facility] | | | Counted | by [facility] [address], | | SACRED | | | | [place] [address] | | HEART | | | |Performed by [facility] [address], [place] [address] | | [facility] L | | | | | | CENTER | | | | | | LABORA TORY | | | | | | CERNER | | + + + +------- ------+ + + + | Specimen | + + | Blood specimen | | (specimen) | + + + + + + + | Performing | Address | City/State/Zipcode | Phone Number | | Organization | | | | + + + + + | [facility] | [address] | [place] [address] | | | [facility] | | | | | LABORATORY JESI | | | | + + + + + POC Glucose (03/29/2019 9:09 PM PDT) + + + + + + | Component | Value | Ref Range | Performed | Pathologist | | | | | At | Signature | + + + + + + | Glucose, | 157 (H)Comment: | 65 - 99 mg/dL | [facility] | | | POC | Performed by [facility] [address] | | SACRED | | | | [address] [place] | | HEART | | | | [address] | | MEDICAL | | | | | | CENTER | | | | | | LABORATORY | | | | | | [place]ER | | + + + + + + + + | Specimen | + + | Blood specimen | | (specimen) | + + + + + + + | Performing | Address | City/State/Zipcode | Phone Number | | Organization | | | | + + + + + | [facility] | [address] | [place], [place] | | | [facility] | | | | | LABORATORY [place] | | | | + + + + + POC Glucose (03/29/2019 6:50 PM PDT) + + + + --+ + | Component | Value | Ref Range | Performed | Pathologist | | | | | At | Signature | + + + + --+ + | Glucose, | 91Comment: Performed by | 65 - 99 mg/dL | [facility] | | | POC | [facility] [address], | | SACRED | | | | [place] | | HEART | | | |Performed by [facility] [address], [place] [address] | | MEDICAL | | | | | | CENTER | | | | | | LABORATORY | | | | | | CERNER | | + + + + --+ + + + | Specimen | + + | Blood specimen | | (specimen) | + + + + + + + | Performing | Address | City/State/Zipcode | Phone Number | | Organization | | | | + + + + + | [facility] | [address] | [place] [address] | | | [facility] | | | | | LABORATORY [facility] | | | | + + + + + POC Glucose (03/29/2019 12:24 PM PDT) + + + + + + | Component | Value | Ref Range | Performed | Pathologist | | | | | At | Signature | + + + + + + | Glucose, | 152 (H)Comment: | 65 - 99 mg/dL | [facility] | | | POC | Performed by [facility] [address] | | SACRED | | | | [address] [place], [place] | | HEART | | | | [id number] | | MEDICAL | | | | | | CENTER | | | | | | LABORATORY | | | | | | [facility] | | + + + + + + + + | Specimen | + + | Blood specimen | | (specimen) | + + + + + + + | Performing | Address | City/State/Zipcode | Phone Number | | Organization | | | | + + + + + | [facility] | [address] | [place] [address] | | | [facility] | | | | | LABORAT[facility] | | | | + + + + + POC Glucose (03/29/2019 9:12 AM PDT) + + + + --+ + | Component | Value | Ref Range | Performed | Pathologist | | | | | At | Signature | + + + + --+ + | Glucose, | 95Comment: Performed by | 65 - 99 mg/dL | [facility] | | | POC | [facility] [address], | | SACRED | | | | [place] [address] | | HEART | | | |Performed by [facility] [address], [place], [place] | | MEDICAL | | | | | | CENTER | | | | | | LABORATORY | | | | | | [facility] | | + + + + --+ + + + | Specimen | + + | Blood specimen | | (specimen) | + + + + + + + | Performing | Address | City/State/Zipcode | Phone Number | | Organization | | | | + + + + + | [facility] | [address] | [place] | | | [facility] | | | | | LABORATORY [facility] | | | | + + + + + Vancomycin Level (03/29/2019 5:19 AM PDT) + + + + + + | Component | Value | Ref Range | Performed | Pathologist | | | | | At | Signature | + + + + + + | Vancomycin | 18.6Comment: Trough: | ug/mL | [facility] | | | Random | 10.0 to 20.0 ug/mLPeak: | | SACRED | | | | 25.0 to 40.0 ug/mLToxic | | HEART | | | | Level: >50.0 ug/mLCDC | | MEDICAL | | | | has established criteria | | CENTER | | | | for use of Vancomycin | | LABORATORY | | | | due to increasing | | [facility] | | | | microbial resistance. | | | | | | Consult pharmacist or | | | | | | Microbiology for more | | | | | | information.Performed by | | | | | | [facility] [address], | | | | | | [place] [address] | | | | + + + + + + + + | Specimen | + + | Blood specimen | | (specimen) | + + + + + + + | Performing | Address | City/State/Zipcode | Phone Number | | Organization | | | | + + + + + | [facility] | [address] | [place] [address] | | | [facility] | | | | | [place] | | | | + + + + + CBC with Manual Differential (03/29/2019 5:19 AM PDT) + + + +------- ------+ + | Component | Value | Ref Range | Perfor med | Pathologist | | | | | At | Signature | + + + +------- ------+ + | WBC | 4.55 | 3.80 - 11.00 | [facility] | | | | | K/uL | [facility] | | | | | | HEART | | | | | | MEDICA L | | | | | | CENTER | | | | | | LABORA TORY | | | | | | [facility] | | + + + +------- ------+ + | RBC | 3.12 (L) | 3.70 - 5.10 | [facility] | | | | | M/uL | [facility] | | | | | | HEART | | | | | | MEDICA [facility] | | | | | | CENTER | | | | | | LABORA TORY | | | | | | [facility] | | + + + +------- ------+ + | Hemoglobin | 10.2 (L) | 11.3 - 15.5 | [facility] | | | | | g/dL | [facility] | | | | | | HEART | | | | | | MEDICA [facility] | | | | | | CENTER | | | | | | LABORA TORY | | | | | | [facility] | | + + + +------- ------+ + | Hct | 31.8 (L) | 34.0 - 46.0 % | [facility] | | | | | | [facility] | | | | | | HEART | | | | | | [facility] | | | | | | CENTER | | | | | | LABORA TORY | | | | | | [facility] | | + + + +------- ------+ + | MCV | 101.9 (H) | 80.0 - 100.0 fL | [facility] | | | | | | [facility] | | | | | | HEART | | | | | | MEDICA [facility] | | | | | | CENTER | | | | | | LABORA TORY | | | | | | [facility] | | + + + +------- ------+ + | MCH | 32.7 | 27.0 - 34.0 pg | [facility] | | | | | | [facility] | | | | | [facility] | | | | | | [facility] | | | | | | [facility] | | | | | | LABORA TORY | | | | | | [facility] | | + + + +------- ------+ + | MCHC | 32.1 | 32.0 - 35.5 | [facility] | | | | | g/dL | [facility] | | | | | | [facility] | | | | | | [facility] | | | | | | CENTER | | | | | | LABORA TORY | | | | | | [facility] | | + + + +------- ------+ + | RDW-CV | 14.8 | 11.0 - 15.5 % | [facility] | | | | | | [facility] | | | | | | [facility] | | | | | | [facility] | | | | | | CENTER | | | | | | LABORA TORY | | | | | | [facility] | | + + + +------- ------+ + | Platelet | 172 | 150 - 400 K/uL | [facility] | | | Count | | | [facility] | | | | | | HE[facility] | | | | | | [facility] | | | | | | CENTER | | | | | | LABORA TORY | | | | | | [facility] | | + + + +------- ------+ + | MPV | 9.9 | 9.3 - 12.7 fL | [facility] | | | | | | [facility] | | | | | | [facility] | | | | | | [facility] | | | | | | CENTER | | | | | | LABORA TORY | | | | | | [facility] | | + + + +------- ------+ + | % Segmented | 64.0 | 38.0 - 70.0 % | [facility] | | | | | | [facility] | | | Neutrophils | | | HEART | | | | | | [facility] | | | | | | CENTER | | | | | | LABORA TORY | | | | | | [facility] | | + + + +------- ------+ + | % | 28.0 | 15.0 - 48.0 % | [facility] | | | Lymphocytes | | | [facility] | | | | | | HEART | | | | | | [facility] | | | | | | CENTER | | | | | | LABORA TORY | | | | | | [facility] | | + + + +------- ------+ + | % Monocytes | 3.0 | 0.0 - 12.0 % | [facility] | | | | | | [facility] | | | | | | [facility] | | | | | | [facility] | | | | | | CENTER | | | | | | LABORA TORY | | | | | | [facility] | | + + + +------- ------+ + | % | 5.0 | 0.0 - 7.0 % | [facility] | | | Eosinophils | | | [facility] | | | | | | HE[facility] | | | | | | [facility] | | | | | | CENTER | | | | | | LABORA TORY | | | | | | [facility] | | + + + +------- ------+ + | % Basophils | 0.0 | 0.0 - 2.0 % | [facility] | | | | | | [facility] | | | | | | [facility] | | | | | | [facility] | | | | | | CENTER | | | | | | LABORA TORY | | | | | | [facility] | | + + + +------- ------+ + | Absolute | 2.91 | 1.80 - 7.70 | [facility] | | | Segmented | | K/uL | [facility] | | | Neutrophils | | | HEART | | | | | | [facility] | | | | | | CENTER | | | | | | LABORA TORY | | | | | | [facility] | | + + + +------- ------+ + | Absolute | 1.27 | 1.00 - 3.90 | [facility] | | | Lymphocytes | | K/uL | [facility] | | | | | | [facility] | | | | | | [facility] | | | | | | CENTER | | | | | | LABORA TORY | | | | | | [facility] | | + + + +------- ------+ + | Absolute | 0.23 | 0.00 - 0.50 | [facility] | | | Eosinophils | | K/uL | [facility] | | | | | | HE[facility] | | | | | | [facility] | | | | | | CENTER | | | | | | LABORA TORY | | | | | | [facility] | | + + + +------- ------+ + | Absolute | 0.00 | 0.00 - 0.10 | [facility] | | | Basophils | | K/uL | [facility] | | | | | | [facility] | | | | | | [facility] | | | | | | CENTER | | | | | | LABORA TORY | | | | | | [facility] | | + + + +------- ------+ + | Absolute | 0.14 | 0.00 - 0.80 | [facility] | | | Monocytes | | K/uL | [facility] | | | | | | HEART | | | | | | [facility] | | | | | | CENTER | | | | | | LABORA TORY | | | | | | [facility] | | + + + +------- ------+ + | Platelet | Adequate | | [facility] | | | Estimate | | | [facility] | | | | | | [facility] | | | | | | [facility] | | | | | | CENTER | | | | | | LABORA TORY | | | | | | [facility] | | + + + +------- ------+ + | RBC | 1+ | | [facility] | | | Macrocytes | | | [facility] | | | | | | HEART | | | | | | [facility] | | | | | | CENTER | | | | | | LABORA TORY | | | | | | [facility] | | + + + +------- ------+ + | Total | 100Comment: Performed | | [facility] | | | Counted | by [facility] [address] | | SACRED | | | | [place] [address] | | HEART | | | |Performed by [facility] [address], [place] [address] | | [facility] | | | | | | CENTER | | | | | | LABORA TORY | | | | | | [facility] | | + + + +------- ------+ + + + | Specimen | + + | Blood specimen | | (specimen) | + + + + + + + | Performing | Address | City/State/Zipcode | Phone Number | | Organization | | | | + + + + + | [facility] | [address] | [place] [address] | | | [facility] | | | | | LABORATORY [facility] | | | | + + + + + C-Reactive Protein (03/29/2019 5:19 AM PDT) + + + +--------- ----+ + | Component | Value | Ref Range | Performe d | Pathologist | | | | | At | Signature | + + + +--------- ----+ + | CRP | 0.8Comment: Performed | 0.0 - 1.5 mg/dL | [facility] | | | | by [facility] [address], | | SACRED | | | | [place] [address] | | HEART | | | |Performed by [facility] [address], [place] [address] | | MEDICAL | | | | | | CENTER | | | | | | LABORATO RY | | | | | | [facility] | | + + + +--------- ----+ + + + | Specimen | + + | Blood specimen | | (specimen) | + + + + + + + | Performing | Address | City/State/Zipcode | Phone Number | | Organization | | | | + + + + + | [facility] | [address] | [place] [address] | | | [facility] | | | | | LABORATORY [facility] | | | | + + + + + Basic Metabolic Panel (03/29/2019 5:19 AM PDT) + + + + + + | Component | Value | Ref Range | Performed | Pathologist | | | | | At | Signature | + + + + + + | Na | 137 | 135 - 145 | [facility] | | | | | mmol/L | [facility] | | | | | | HEART | | | | | | MEDICAL | | | | | | CENTER | | | | | | LABORATORY | | | | | | [facility] | | + + + + + + | K | 4.1 | 3.5 - 5.0 | [facility] | | | | | mmol/L | [facility] | | | | | | HEART | | | | | | MEDICAL | | | | | | CENTER | | | | | | LABORATORY | | | | | | [facility] | | + + + + + + | Cl | 103 | 99 - 109 mmol/L | [facility] | | | | | | [facility] | | | | | | HEART | | | | | | MEDICAL | | | | | | CENTER | | | | | | LABORATORY | | | | | | [facility] | | + + + + + + | CO2 | 28 | 21 - 28 mmol/L | [facility] | | | | | | [facility] | | | | | | HEART | | | | | | MEDICAL | | | | | | CENTER | | | | | | LABORATORY | | | | | | [facility] | | + + + + + + | Anion Gap | 6 | 5 - 16 mmol/L | [facility] | | | | | | [facility] | | | | | | HEART | | | | | | MEDICAL | | | | | | CENTER | | | | | | LABORATORY | | | | | | [facility] | | + + + + + + | Calcium | 8.1 (L) | 8.5 - 10.2 | [facility] | | | | | mg/dL | [facility] | | | | | | HEART | | | | | | MEDICAL | | | | | | CENTER | | | | | | LABORATORY | | | | | | [facility] | | + + + + + + | BUN | 19 | 8 - 25 mg/dL | [facility] | | | | | | [facility] | | | | | | HEART | | | | | | MEDICAL | | | | | | CENTER | | | | | | LABORATORY | | | | | | [facility] | | + + + + + + | Creatinine | 4.14 (H) | 0.50 - 1.00 | [facility] | | | | | mg/dL | [facility] | | | | | | HEART | | | | | | MEDICAL | | | | | | CENTER | | | | | | LABORATORY | | | | | | [facility] | | + + + + + + | Glucose | 97 | 65 - 99 mg/dL | [facility] | | | | | | [facility] | | | | | | HEART | | | | | | MEDICAL | | | | | | CENTER | | | | | | LABORATORY | | | | | | [facility] | | + + + + + + | Estimated | 10 (L)Comment: eGFR<60 | >=90 | [facility] | | | GFR | consistent with impaired | mL/min/1.73m2 | [facility] | | | | kidney function.For | | HEART | | | | Americans, | | MEDICAL | | | | multiply the calculated | | CENTER | | | | GFR by 1.210Performed by | | LABORATORY | | | | [facility] [address], | | [place] | | | | [place] [address] | | | | + + + + + + + + | Specimen | + + | Blood specimen | | (specimen) | + + + + + + + | Performing | Address | City/State/Zipcode | Phone Number | | Organization | | | | + + + + + | [facility] | [address] | [place] [address] | | | [facility] | | | | | LABORATORY [facility] | | | | + + + + + POC Glucose (03/28/2019 9:06 PM PDT) + + + + + + | Component | Value | Ref Range | Performed | Pathologist | | | | | At | Signature | + + + + + + | Glucose, | 144 (H)Comment: | 65 - 99 mg/dL | [facility] | | | POC | Performed by [facility] [address] | | SACRED | | | | [address] [place] | | HEART | | | | [id number] | | MEDICAL | | | | | | CENTER | | | | | | LABORATORY | | | | | | C[facility]ER | | + + + + + + + + | Specimen | + + | Blood specimen | | (specimen) | + + + + + + + | Performing | Address | City/State/Zipcode | Phone Number | | Organization | | | | + + + + + | [facility] | [address] | [place] [address] | | | [facility] | | | | | LABORATORY [facility] | | | | + + + + + IR Placement Tunneled CV Cath (03/28/2019 3:00 PM PDT) + + | Specimen | + + | | + + + + + | Narrative | Performed At | + + + | ULTRASOUND-GUIDED RIGHT IJ TUNNELED PICC PLACEMENT CLINICAL | [facility] | | INFORMATION: Please place tunneled PICC per neprhology wishes - for | | | definitive IV access with need for six weeks IV abx. COMPARISON: | | | CT GUIDED FINE NEEDLE ASPIRATION (03/24/2019); CT CHEST ABDOMEN | | | PELVIS WO CONTRAST (03/23/2019); XR CHEST AP PORTABLE (12/04/2018) | | | PROCEDURE: The risks, benefits and alternatives were discussed with | | | the patient; written consent was obtained and placed in the patient's | | | chart. The risks included but were not limited to bleeding, | | | pneumothorax, infection, allergic reaction and . The patient | | | was then brought to the procedure room and placed in the supine | | | position where the right side of the neck and chest were sterilely | | | prepped and draped in the usual fashion. Maximum sterile barrier | | | techniques taken and all staff present in the room performed hand | | | hygiene prior to the procedure. After local anesthetic was | | | administered, a small incision was made with an 11 blade. A | | | micropuncture needle was then utilized to access the internal jugular | | | vein under direct ultrasound visualization. A 0.018 wire was then | | | advanced centrally under fluoroscopic guidance, dilated, and | | | peel-away sheath introduced. The tunneled tract was anesthetized | | | with lidocaine. The tunnel tract was then created with blunt | | | dissection and the catheter was pulled through the tunnel. The | | | catheter was delivered into the right atrium under fluoroscopic | | | guidance. The catheter was flushed. The catheter was secured to the | | | skin. A single spot film was obtained over the chest. Fluoro Time: | | | 0.4 minute(s). Total number of images: 1 Medications: None | | | FINDINGS: The ultrasound demonstrated a widely patent and | | | compressible right internal jugular vein. A permanent image was | | | obtained. Intra procedural fluoroscopic imaging showed the tip of the | | | PICC in good position at the right atrium. IMPRESSION: | | | Successful ultrasound-guided right IJ tunneled PICC placement. The | | | tip is in the right atrium ready for use. Dictated by: Lisbeth Choi, | | | Juan Signed by: Lisbeth Bowers David Sign Date/Time: 03/28/2019 | | | 3:43 PM The radiologist has reviewed the images and | | | edited/approved the report. For interventional procedures, the | | | signing radiologist was present for the pearl portions of the exam. | | | | | + + + + + | Procedure Note | + + | Julian, Rad Results In - 03/28/2019 3:47 PM PDT | | ULTRASOUND-GUIDED RIGHT IJ TUNNELED PICC PLACEMENT | | | | CLINICAL INFORMATION: | | Please place tunneled PICC per neprhology wishes - for definitive IV | | access with need for six weeks IV abx. | | | | COMPARISON: | | CT GUIDED FINE NEEDLE ASPIRATION (03/24/2019); CT CHEST ABDOMEN PELVIS | | WO CONTRAST (03/23/2019); XR CHEST AP PORTABLE (12/04/2018) | | | | PROCEDURE: | | The risks, benefits and alternatives were discussed with the patient; | | written consent was obtained and placed in the patient's chart. The | | risks included but were not limited to bleeding, pneumothorax, | | infection, allergic reaction and . | | | | The patient was then brought to the procedure room and placed in the | | supine position where the right side of the neck and chest were | | sterilely prepped and draped in the usual fashion. Maximum sterile | | barrier techniques taken and all staff present in the room performed | | hand hygiene prior to the procedure. After local anesthetic was | | administered, a small incision was made with an 11 blade. A | | micropuncture needle was then utilized to access the internal jugular | | vein under direct ultrasound visualization. A 0.018 wire was then | | advanced centrally under fluoroscopic guidance, dilated, and | | peel-away sheath introduced. The tunneled tract was anesthetized | | with lidocaine. The tunnel tract was then created with blunt | | dissection and the catheter was pulled through the tunnel. The | | catheter was delivered into the right atrium under fluoroscopic | | guidance. The catheter was flushed. The catheter was secured to the | | skin. A single spot film was obtained over the chest. | | | | Fluoro Time: 0.4 minute(s). Total number of images: 1 | | | | Medications: | | None | | | | FINDINGS: | | The ultrasound demonstrated a widely patent and compressible right | | internal jugular vein. A permanent image was obtained. Intra | | procedural fluoroscopic imaging showed the tip of the PICC in good | | position at the right atrium. | | | | IMPRESSION: | | Successful ultrasound-guided right IJ tunneled PICC placement. The | | tip is in the right atrium ready for use. | | | | Dictated by: Lisbeth Choi Eric | | | | Signed by: Lisbeth Bowers David | | Sign Date/Time: 03/28/2019 3:43 PM | | | | The radiologist has reviewed the images and edited/approved | | the report. For interventional procedures, the signing | | radiologist was present for the pearl portions of the exam. | + + + +---------+ + + | Performing | Address | City/State/Zipcode | Phone Number | | Organization | | | | + +---------+ + + | [facility] | | | | + +---------+ + + POC Glucose (03/28/2019 11:22 AM PDT) + + + + + + | Component | Value | Ref Range | Performed | Pathologist | | | | | At | Signature | + + + + + + | Glucose, | 119 (H)Comment: | 65 - 99 mg/dL | [facility] | | | POC | Performed by [facility] [address] | | SACRED | | | | [address] [place], [place] | | HEART | | | | [address] | | MEDICAL | | | | | | CENTER | | | | | | LABORATORY | | | | | | [place] | | + + + + + + + + | Specimen | + + | Blood specimen | | (specimen) | + + + + + + + | Performing | Address | City/State/Zipcode | Phone Number | | Organization | | | | + + + + + | [facility] | [address] | [place] [address] | | | [facility] | | | | | LABORATORY [facility] | | | | + + + + + POC Glucose (03/28/2019 7:09 AM PDT) + + + + --+ + | Component | Value | Ref Range | Performed | Pathologist | | | | | At | Signature | + + + + --+ + | Glucose, | 75Comment: Performed by | 65 - 99 mg/dL | [facility] | | | POC | [facility] [address], | | SACRED | | | | [place] [address] | | HEART | | | |Performed by [facility] [address], [place] [address] | | MEDICAL | | | | | | CENTER | | | | | | LABORATORY | | | | | | [facility] | | + + + + --+ + + + | Specimen | + + | Blood specimen | | (specimen) | + + + + + + + | Performing | Address | City/State/Zipcode | Phone Number | | Organization | | | | + + + + + | [facility] | [address] | [place] [address] | | | [facility] | | | | | LABORATORY [facility] | | | | + + + + + Basic Metabolic Panel (03/28/2019 4:58 AM PDT) + + + + + + | Component | Value | Ref Range | Performed | Pathologist | | | | | At | Signature | + + + + + + | Na | 136 | 135 - 145 | [facility] | | | | | mmol/L | [facility] | | | | | | HEART | | | | | | MEDICAL | | | | | | CENTER | | | | | | LABORATORY | | | | | | [facility] | | + + + + + + | K | 4.0 | 3.5 - 5.0 | [facility] | | | | | mmol/L | [facility]CR[facility] | | | | | | HEART | | | | | | MEDICAL | | | | | | CENTER | | | | | | LABORATORY | | | | | | [facility] | | + + + + + + | Cl | 102 | 99 - 109 mmol/L | [facility] | | | | | | [facility]CR[facility] | | | | | | HEART | | | | | | MEDICAL | | | | | | CENTER | | | | | | LABORATORY | | | | | | [facility] | | + + + + + + | CO2 | 28 | 21 - 28 mmol/L | [facility] | | | | | | [facility] | | | | | | HEART | | | | | | MEDICAL | | | | | | CENTER | | | | | | LABORATORY | | | | | | [facility] | | + + + + + + | Anion Gap | 6 | 5 - 16 mmol/L | [facility] | | | | | | [facility] | | | | | | HEART | | | | | | MEDICAL | | | | | | CENTER | | | | | | LABORATORY | | | | | | [facility] | | + + + + + + | Calcium | 8.0 (L) | 8.5 - 10.2 | [facility] | | | | | mg/dL | [facility]CR[facility] | | | | | | HEART | | | | | | MEDICAL | | | | | | CENTER | | | | | | LABORATORY | | | | | | [facility] | | + + + + + + | BUN | 12 | 8 - 25 mg/dL | [facility] | | | | | | [facility] | | | | | | HEART | | | | | | MEDICAL | | | | | | CENTER | | | | | | LABORATORY | | | | | | [facility] | | + + + + + + | Creatinine | 3.12 (H) | 0.50 - 1.00 | [facility] | | | | | mg/dL | [facility] | | | | | | HEART | | | | | | MEDICAL | | | | | | CENTER | | | | | | LABORATORY | | | | | | [facility] | | + + + + + + | Glucose | 83 | 65 - 99 mg/dL | [facility] | | | | | | [facility]CR[facility] | | | | | | HEART | | | | | | MEDICAL | | | | | | CENTER | | | | | | LABORATORY | | | | | | [facility] | | + + + + + + | Estimated | 14 (L)Comment: eGFR<60 | >=90 | [facility] | | | GFR | consistent with impaired | mL/min/1.73m2 | [facility] | | | | kidney function.For | | HEART | | | | Americans, | | MEDICAL | | | | multiply the calculated | | CENTER | | | | GFR by 1.210Performed by | | LABORATORY | | | | [facility] [address], | | [place] | | | | [place] [address] | | | | + + + + + + + + | Specimen | + + | Blood specimen | | (specimen) | + + + + + + + | Performing | Address | City/State/Zipcode | Phone Number | | Organization | | | | + + + + + | [facility] | [address] | [place] [address] | | | [facility] | | | | | LABORATORY [facility] | | | | + + + + + CBC no Differential (03/28/2019 4:58 AM PDT) + + + +-------- -----+ + | Component | Value | Ref Range | Perform ed | Pathologist | | | | | At | Signature | + + + +-------- -----+ + | WBC | 4.25 | 3.80 - 11.00 | [facility] | | | | | K/uL | [facility] | | | | | | HEART | | | | | | MEDICAL | | | | | | CENTER | | | | | | LABORAT ORY | | | | | | [facility] | | + + + +-------- -----+ + | RBC | 3.07 (L) | 3.70 - 5.10 | [facility] | | | | | M/uL | [facility] | | | | | | HEART | | | | | | MEDICAL | | | | | | CENTER | | | | | | LABORAT ORY | | | | | | [place] | | + + + +-------- -----+ + | Hemoglobin | 9.9 (L) | 11.3 - 15.5 | [facility] | | | | | g/dL | [facility] | | | | | | HEART | | | | | | MEDICAL | | | | | | CENTER | | | | | | LABORAT ORY | | | | | | [facility] | | + + + +-------- -----+ + | Hct | 30.8 (L) | 34.0 - 46.0 % | [facility] | | | | | | [facility]CR[facility] | | | | | | HEART | | | | | | MEDICAL | | | | | | CENTER | | | | | | LABORAT ORY | | | | | | [place] | | + + + +-------- -----+ + | MCV | 100.3 (H) | 80.0 - 100.0 fL | [facility] | | | | | | [facility]CR[facility] | | | | | | HEART | | | | | | MEDICAL | | | | | | CENTER | | | | | | LABORAT ORY | | | | | | [place] | | + + + +-------- -----+ + | MCH | 32.2 | 27.0 - 34.0 pg | [facility] | | | | | | SACRED | | | | | | HEART | | | | | | MEDICAL | | | | | | CENTER | | | | | | LABORAT ORY | | | | | | [place] | | + + + +-------- -----+ + | MCHC | 32.1 | 32.0 - 35.5 | [facility] | | | | | g/dL | [facility] | | | | | | HEART | | | | | | MEDICAL | | | | | | CENTER | | | | | | LABORAT ORY | | | | | | [place] | | + + + +-------- -----+ + | RDW-CV | 14.9 | 11.0 - 15.5 % | [facility] | | | | | | [facility] | | | | | | HEART | | | | | | MEDICAL | | | | | | CENTER | | | | | | LABORAT ORY | | | | | | [place] | | + + + +-------- -----+ + | Platelet | 171 | 150 - 400 K/uL | [facility] | | | Count | | | [facility]CR[facility] | | | | | | HEART | | | | | | MEDICAL | | | | | | CENTER | | | | | | LABORAT ORY | | | | | | [place] | | + + + +-------- -----+ + | MPV | 10.1Comment: Performed | 9.3 - 12.7 fL | [facility] | | | | by [facility] [address], | | SACRED | | | | [place] [address] | | HEART | | | |Performed by [facility] [address], [place] [address] | | MEDICAL | | | | | | CENTER | | | | | | LABORAT ORY | | | | | | [facility] | | + + + +-------- -----+ + + + | Specimen | + + | Blood specimen | | (specimen) | + + + + + + + | Performing | Address | City/State/Zipcode | Phone Number | | Organization | | | | + + + + + | [facility] | [address] | [place] [address] | | | [facility] | | | | | LABORATORY [place] | | | | + + + + + POC Glucose (03/27/2019 8:38 PM PDT) + + + + + + | Component | Value | Ref Range | Performed | Pathologist | | | | | At | Signature | + + + + + + | Glucose, | 109 (H)Comment: | 65 - 99 mg/dL | [facility] | | | POC | Performed by [facility] [address] | | SACRED | | | | [address], [place] | | HEART | | | | [address] | | MEDICAL | | | | | | CENTER | | | | | | LABORATORY | | | | | | [place] | | + + + + + + + + | Specimen | + + | Blood specimen | | (specimen) | + + + + + + + | Performing | Address | City/State/Zipcode | Phone Number | | Organization | | | | + + + + + | [facility] | [address] | [place] [address] | | | [facility] | | | | | LABORATORY [place] | | | | + + + + + POC Glucose (03/27/2019 5:17 PM PDT) + + + + + + | Component | Value | Ref Range | Performed | Pathologist | | | | | At | Signature | + + + + + + | Glucose, | 138 (H)Comment: | 65 - 99 mg/dL | [facility] | | | POC | Performed by [facility] [address] | | SACRED | | | | [address] [place] | | HEART | | | | [address] | | MEDICAL | | | | | | CENTER | | | | | | LABORATORY | | | | | | [place] | | + + + + + + + + | Specimen | + + | Blood specimen | | (specimen) | + + + + + + + | Performing | Address | City/State/Zipcode | Phone Number | | Organization | | | | + + + + + | [facility] | [address] | [place] [address] | | | [facility] | | | | | LABORATORY [place] | | | | + + + + + POC Glucose (03/27/2019 1:58 PM PDT) + + + + --+ + | Component | Value | Ref Range | Performed | Pathologist | | | | | At | Signature | + + + + --+ + | Glucose, | 82Comment: Performed by | 65 - 99 mg/dL | [facility] | | | POC | [facility] [address] | | SACRED | | | | [place] [address] | | HEART | | | |Performed by [facility] [address], [place] [address] | | MEDICAL | | | | | | CENTER | | | | | | LABORATORY | | | | | | [facility] | | + + + + --+ + + + | Specimen | + + | Blood specimen | | (specimen) | + + + + + + + | Performing | Address | City/State/Zipcode | Phone Number | | Organization | | | | + + + + + | [facility] | [address] | [place] | | | [facility] | | | | | LABORATORY [place] | | | | + + + + + POC Glucose (03/27/2019 6:39 AM PDT) + + + + --+ + | Component | Value | Ref Range | Performed | Pathologist | | | | | At | Signature | + + + + --+ + | Glucose, | 83Comment: Performed by | 65 - 99 mg/dL | [facility] | | | POC | [facility] [address], | | [facility] | | | | [place] | | HEART | | | |Performed by [facility] [address], [place] [address] | | MEDICAL | | | | | | CENTER | | | | | | LABORATORY | | | | | | [facility] | | + + + + --+ + + + | Specimen | + + | Blood specimen | | (specimen) | + + + + + + + | Performing | Address | City/State/Zipcode | Phone Number | | Organization | | | | + + + + + | [facility] | [address] | [place] [address] | | | [facility] | | | | | [facility]AT[facility] | | | | + + + + + Vancomycin Level (03/27/2019 5:12 AM PDT) + + + + + + | Component | Value | Ref Range | Performed | Pathologist | | | | | At | Signature | + + + + + + | Vancomycin | 17.7Comment: Trough: | ug/mL | [facility] | | | Random | 10.0 to 20.0 ug/mLPeak: | | [facility] | | | | 25.0 to 40.0 ug/mLToxic | | HEART | | | | Level: >50.0 ug/mLCDC | | MEDICAL | | | | has established criteria | | CENTER | | | | for use of Vancomycin | | LABORATORY | | | | due to increasing | | [facility] | | | | microbial resistance. | | | | | | Consult pharmacist or | | | | | | Microbiology for more | | | | | | information.Performed by | | | | | | [facility] [address], | | | | | | [place] [id number] | | | | + + + + + + + + | Specimen | + + | Blood specimen | | (specimen) | + + + + + + + | Performing | Address | City/State/Zipcode | Phone Number | | Organization | | | | + + + + + | [facility] | [address] | [place] [address] | | | [facility] | | | | | [facility] | | | | + + + + + POC Glucose (03/26/2019 8:41 PM PDT) + + + + + + | Component | Value | Ref Range | Performed | Pathologist | | | | | At | Signature | + + + + + + | Glucose, | 165 (H)Comment: | 65 - 99 mg/dL | [facility] | | | POC | Performed by [facility] [address] | | [address] | | | | [address] [place] | | HEART | | | | [address] | | MEDICAL | | | | | | CENTER | | | | | | LABORATORY | | | | | | [place] | | + + + + + + + + | Specimen | + + | Blood specimen | | (specimen) | + + + + + + + | Performing | Address | City/State/Zipcode | Phone Number | | Organization | | | | + + + + + | [facility] | [address] | [place] [address] | | | [facility] | | | | | LABORATORY [place] | | | | + + + + + POC Glucose (03/26/2019 5:33 PM PDT) + + + + + + | Component | Value | Ref Range | Performed | Pathologist | | | | | At | Signature | + + + + + + | Glucose, | 101 (H)Comment: | 65 - 99 mg/dL | [facility] | | | POC | Performed by [facility] [address] | | SACR[address] | | | | [address], [place] | | HEART | | | | [address] | | MEDICAL | | | | | | CENTER | | | | | | LABORATORY | | | | | | [place] | | + + + + + + + + | Specimen | + + | Blood specimen | | (specimen) | + + + + + + + | Performing | Address | City/State/Zipcode | Phone Number | | Organization | | | | + + + + + | [facility] | [address] | [place] [address] | | | [facility] | | | | | LABORATORY [place] | | | | + + + + + POC Glucose (03/26/2019 12:09 PM PDT) + + + + + + | Component | Value | Ref Range | Performed | Pathologist | | | | | At | Signature | + + + + + + | Glucose, | 108 (H)Comment: | 65 - 99 mg/dL | [facility] | | | POC | Performed by [facility] [address] | | SACRED | | | | [address] [place] | | HEART | | | | [address] | | MEDICAL | | | | | | CENTER | | | | | | LABORATORY | | | | | | CERNER | | + + + + + + + + | Specimen | + + | Blood specimen | | (specimen) | + + + + + + + | Performing | Address | City/State/Zipcode | Phone Number | | Organization | | | | + + + + + | [facility] | [address] | [place] [address] | | | [facility] | | | | | LABORATORY [place] | | | | + + + + + Phosphorus (03/26/2019 11:44 AM PDT) + + + + + + | Component | Value | Ref Range | Performed | Pathologist | | | | | At | Signature | + + + + + + | Phosphorus | 5.6 (H)Comment: | 2.6 - 4.4 mg/dL | [facility] | | | | Performed by [facility] [address] | | [place] | | | | [address], [place] | | HEART | | | | [address] | | MEDICAL | | | | | | CENTER | | | | | | LABORATORY | | | | | | [place] | | + + + + + + + + | Specimen | + + | Blood specimen | | (specimen) | + + + + + + + | Performing | Address | City/State/Zipcode | Phone Number | | Organization | | | | + + + + + | [facility] | [address] | [place] [address] | | | [facility] | | | | | LABORATORY [place] | | | | + + + + + POC Glucose (03/26/2019 6:49 AM PDT) + + + + + + | Component | Value | Ref Range | Performed | Pathologist | | | | | At | Signature | + + + + + + | Glucose, | 116 (H)Comment: | 65 - 99 mg/dL | [facility] | | | POC | Performed by [facility] [address] | | SACRED | | | | [address] [place], [place] | | HEART | | | | [address] | | MEDICAL | | | | | | CENTER | | | | | | LABORATORY | | | | | | [place] | | + + + + + + + + | Specimen | + + | Blood specimen | | (specimen) | + + + + + + + | Performing | Address | City/State/Zipcode | Phone Number | | Organization | | | | + + + + + | [facility] | [address] | [place] [address] | | | [facility] | | | | | LABORATORY [place] | | | | + + + + + Vancomycin Level (03/26/2019 4:11 AM PDT) + + + + + + | Component | Value | Ref Range | Performed | Pathologist | | | | | At | Signature | + + + + + + | Vancomycin | 20.2Comment: Trough: | ug/mL | [facility] | | | Random | 10.0 to 20.0 ug/mLPeak: | | SACRED | | | | 25.0 to 40.0 ug/mLToxic | | HEART | | | | Level: >50.0 ug/mLCDC | | MEDICAL | | | | has established criteria | | CENTER | | | | for use of Vancomycin | | LABORATORY | | | | due to increasing | | [facility] | | | | microbial resistance. | | | | | | Consult pharmacist or | | | | | | Microbiology for more | | | | | | information.Performed by | | | | | | [facility] [address], | | | | | | [place] [address] | | | | + + + + + + + + | Specimen | + + | Blood specimen | | (specimen) | + + + + + + + | Performing | Address | City/State/Zipcode | Phone Number | | Organization | | | | + + + + + | [facility] | [address] | [place] [address] | | | [facility] | | | | | LABORATORY [place] | | | | + + + + + Basic Metabolic Panel (03/26/2019 4:11 AM PDT) + + + + + + | Component | Value | Ref Range | Performed | Pathologist | | | | | At | Signature | + + + + + + | Na | 133 (L) | 135 - 145 | [facility] | | | | | mmol/L | SACRED | | | | | | HEART | | | | | | MEDICAL | | | | | | CENTER | | | | | | LABORATORY | | | | | | [place] | | + + + + + + | K | 4.3 | 3.5 - 5.0 | [facility] | | | | | mmol/L | SACRED | | | | | | HEART | | | | | | MEDICAL | | | | | | CENTER | | | | | | LABORATORY | | | | | | [place] | | + + + + + + | Cl | 99 | 99 - 109 mmol/L | [facility] | | | | | | SACRED | | | | | | HEART | | | | | | MEDICAL | | | | | | CENTER | | | | | | LABORATORY | | | | | | [place] | | + + + + + + | CO2 | 27 | 21 - 28 mmol/L | [facility] | | | | | | SACRED | | | | | | HEART | | | | | | MEDICAL | | | | | | CENTER | | | | | | LABORATORY | | | | | | [place] | | + + + + + + | Anion Gap | 7 | 5 - 16 mmol/L | [facility] | | | | | | SACRED | | | | | | HEART | | | | | | MEDICAL | | | | | | CENTER | | | | | | LABORATORY | | | | | | [place] | | + + + + + + | Calcium | 8.2 (L) | 8.5 - 10.2 | [facility] | | | | | mg/dL | SACRED | | | | | | HEART | | | | | | MEDICAL | | | | | | CENTER | | | | | | LABORATORY | | | | | | [place] | | + + + + + + | BUN | 19 | 8 - 25 mg/dL | [facility] | | | | | | [facility]CR[facility] | | | | | | HEART | | | | | | MEDICAL | | | | | | CENTER | | | | | | LABORATORY | | | | | | [place] | | + + + + + + | Creatinine | 3.82 (H) | 0.50 - 1.00 | [facility] | | | | | mg/dL | SACRED | | | | | | HEART | | | | | | MEDICAL | | | | | | CENTER | | | | | | LABORATORY | | | | | | [place] | | + + + + + + | Glucose | 105 (H) | 65 - 99 mg/dL | [facility] | | | | | | SACRED | | | | | | HEART | | | | | | MEDICAL | | | | | | CENTER | | | | | | LABORATORY | | | | | | [place] | | + + + + + + | Estimated | 11 (L)Comment: eGFR<60 | >=90 | [facility] | | | GFR | consistent with impaired | mL/min/1.73m2 | [facility]CRED | | | | kidney function.For | | HEART | | | | Americans, | | MEDICAL | | | | multiply the calculated | | CENTER | | | | GFR by 1.210Performed by | | LABORATORY | | | | [facility] [address], | | [place] | | | | [place] [address] | | | | + + + + + + + + | Specimen | + + | Blood specimen | | (specimen) | + + + + + + + | Performing | Address | City/State/Zipcode | Phone Number | | Organization | | | | + + + + + | [facility] | [address] | [place] [address] | | | HEART [facility] | | | | | LABORATORY [place]ES[place] | | | | + + + + + CBC no Differential (03/26/2019 4:11 AM PDT) + + + +-------- -----+ + | Component | Value | Ref Range | Perform ed | Pathologist | | | | | At | Signature | + + + +-------- -----+ + | WBC | 4.57 | 3.80 - 11.00 | [facility] | | | | | K/uL | [facility] | | | | | | HEART | | | | | | MEDICAL | | | | | | CENTER | | | | | | [facility] | | | | | | [facility] | | + + + +-------- -----+ + | RBC | 3.12 (L) | 3.70 - 5.10 | [facility] | | | | | M/uL | [facility] | | | | | | HEART | | | | | | MEDICAL | | | | | | CENTER | | | | | | LABORAT ORY | | | | | | [place] | | + + + +-------- -----+ + | Hemoglobin | 10.2 (L) | 11.3 - 15.5 | [facility] | | | | | g/dL | SACR[facility] | | | | | | HEART | | | | | | MEDICAL | | | | | | CENTER | | | | | | LABORAT ORY | | | | | | [facility] | | + + + +-------- -----+ + | Hct | 32.1 (L) | 34.0 - 46.0 % | [facility] | | | | | | SACRED | | | | | | HEART | | | | | | MEDICAL | | | | | | CENTER | | | | | | LABORAT ORY | | | | | | CERNER | | + + + +-------- -----+ + | MCV | 102.9 (H) | 80.0 - 100.0 fL | [facility] | | | | | | SACRED | | | | | | HEART | | | | | | MEDICAL | | | | | | CENTER | | | | | | LABORAT ORY | | | | | | C[facility] | | + + + +-------- -----+ + | MCH | 32.7 | 27.0 - 34.0 pg | [facility] | | | | | | [facility] | | | | | | HEART | | | | | | MEDICAL | | | | | | CENTER | | | | | | LABORAT ORY | | | | | | CERNER | | + + + +-------- -----+ + | MCHC | 31.8 (L) | 32.0 - 35.5 | [facility] | | | | | g/dL | [facility]CRED | | | | | | HEART | | | | | | MEDICAL | | | | | | CENTER | | | | | | LABORAT ORY | | | | | | [place] | | + + + +-------- -----+ + | RDW-CV | 15.1 | 11.0 - 15.5 % | [facility] | | | | | | [facility]CR[facility] | | | | | | HEART | | | | | | MEDICAL | | | | | | CENTER | | | | | | LABORAT ORY | | | | | | CERNER | | + + + +-------- -----+ + | Platelet | 179 | 150 - 400 K/uL | [facility] | | | Count | | | [facility]CRED | | | | | | HEART | | | | | | MEDICAL | | | | | | CENTER | | | | | | LABORAT ORY | | | | | | [place] | | + + + +-------- -----+ + | MPV | 10.2Comment: Performed | 9.3 - 12.7 fL | [facility] | | | | by [facility] [address], | | SACRED | | | | [place] [address] | | HEART | | | |Performed by [facility] [address], [place] [address] | | MEDICAL | | | | | | CENTER | | | | | | LABORAT ORY | | | | | | CERNER | | + + + +-------- -----+ + + + | Specimen | + + | Blood specimen | | (specimen) | + + + + + + + | Performing | Address | City/State/Zipcode | Phone Number | | Organization | | | | + + + + + | [facility] | [address] | [place] [address] | | | HEART [facility] | | | | | LABORATORY [place] | | | | + + + + + Vitamin B-12 and Folate (03/26/2019 4:11 AM PDT) + + + +--------- ----+ + | Component | Value | Ref Range | Performe d | Pathologist | | | | | At | Signature | + + + +--------- ----+ + | FOLATE | 21.3 | >=5.8 ng/mL | [facility] | | | | Comment: | | [facility] | | | | | | HEART | | | | Normal >5.8 | | MEDICAL | | | | Indeterminate 4.0-5.8 | | CENTER | | | | Deficient <4.0 | | LABORATO RY | | | | | | [place] | | + + + +--------- ----+ + | VITAMIN | 603Comment: Performed | 180 - 914 pg/mL | [facility] | | | B-12 | by [facility] [address], | | SACRED | | | | [place] [address] | | HEART | | | |Performed by [facility] [address], [place] [address] | | MEDICAL | | | | | | CENTER | | | | | | LABORATO RY | | | | | | CERNER | | + + + +--------- ----+ + + + | Specimen | + + | Blood specimen | | (specimen) | + + + + + + + | Performing | Address | City/State/Zipcode | Phone Number | | Organization | | | | + + + + + | [facility] | [address] | [place] [address] | | | [facility] | | | | | LABORATORY [place] | | | | + + + + + Vancomycin Level (03/25/2019 9:35 PM PDT) + + + + + + | Component | Value | Ref Range | Performed | Pathologist | | | | | At | Signature | + + + + + + | Vancomycin | 20.5Comment: Trough: | ug/mL | [facility] | | | Random | 10.0 to 20.0 ug/mLPeak: | | SACRED | | | | 25.0 to 40.0 ug/mLToxic | | HEART | | | | Level: >50.0 ug/mLCDC | | MEDICAL | | | | has established criteria | | CENTER | | | | for use of Vancomycin | | LABORATORY | | | | due to increasing | | C[facility] | | | | microbial resistance. | | | | | | Consult pharmacist or | | | | | | Microbiology for more | | | | | | information.Performed by | | | | | | [facility] [address], | | | | | | [place] [address] | | | | + + + + + + + + | Specimen | + + | Blood specimen | | (specimen) | + + + + + + + | Performing | Address | City/State/Zipcode | Phone Number | | Organization | | | | + + + + + | [facility] | [address] | [place] [address] | | | [facility] | | | | | LABORATORY [place] | | | | + + + + + POC Glucose (03/25/2019 8:37 PM PDT) + + + + + + | Component | Value | Ref Range | Performed | Pathologist | | | | | At | Signature | + + + + + + | Glucose, | 110 (H)Comment: | 65 - 99 mg/dL | [facility] | | | POC | Performed by [facility] [address] | | SACRED | | | | [address] [place] | | HEART | | | | [address] | | MEDICAL | | | | | | CENTER | | | | | | LABORATORY | | | | | | CERNER | | + + + + + + + + | Specimen | + + | Blood specimen | | (specimen) | + + + + + + + | Performing | Address | City/State/Zipcode | Phone Number | | Organization | | | | + + + + + | [facility] | [address] | [place] [address] | | | [facility] | | | | | LABORATORY [facility] | | | | + + + + + POC Glucose (03/25/2019 4:53 PM PDT) + + + + + + | Component | Value | Ref Range | Performed | Pathologist | | | | | At | Signature | + + + + + + | Glucose, | 179 (H)Comment: | 65 - 99 mg/dL | [facility] | | | POC | Performed by [facility] [address] | | SACRED | | | | [address], [place] | | HEART | | | | | | MEDICAL | | | | | | CENTER | | | | | | LABORATORY | | | | | | CERNER | | + + + + + + + + | Specimen | + + | Blood specimen | | (specimen) | + + + + + + + | Performing | Address | City/State/Zipcode | Phone Number | | Organization | | | | + + + + + | [facility] | [address] | [place] | | | [facility]ART [facility] | | | | | LABORATORY [facility] | | | | + + + + + POC Glucose (03/25/2019 12:05 PM PDT) + + + + + + | Component | Value | Ref Range | Performed | Pathologist | | | | | At | Signature | + + + + + + | Glucose, | 117 (H)Comment: | 65 - 99 mg/dL | [facility] | | | POC | Performed by [facility] [address] | | SACRED | | | | [place] | | HEART | | | | [address] | | MEDICAL | | | | | | CENTER | | | | | | LABORATORY | | | | | | CERNER | | + + + + + + + + | Specimen | + + | Blood specimen | | (specimen) | + + + + + + + | Performing | Address | City/State/Zipcode | Phone Number | | Organization | | | | + + + + + | [facility] | [address] | [place] [address] | | | [facility] | | | | | LABORATORY [place] | | | | + + + + + CBC no Differential (03/25/2019 9:18 AM PDT) + + + +-------- -----+ + | Component | Value | Ref Range | Perform ed | Pathologist | | | | | At | Signature | + + + +-------- -----+ + | WBC | 5.34 | 3.80 - 11.00 | [facility] | | | | | K/uL | [facility]ED | | | | | | HEART | | | | | | MEDICAL | | | | | | CENTER | | | | | | LABORAT ORY | | | | | | [place] | | + + + +-------- -----+ + | RBC | 3.08 (L) | 3.70 - 5.10 | [facility] | | | | | M/uL | SACRED | | | | | | HEART | | | | | | MEDICAL | | | | | | CENTER | | | | | | LABORAT ORY | | | | | | [place] | | + + + +-------- -----+ + | Hemoglobin | 10.2 (L) | 11.3 - 15.5 | [facility] | | | | | g/dL | [facility] | | | | | | HEART | | | | | | MEDICAL | | | | | | CENTER | | | | | | LABORAT ORY | | | | | | [place] | | + + + +-------- -----+ + | Hct | 31.5 (L) | 34.0 - 46.0 % | [facility] | | | | | | [facility] | | | | | | HEART | | | | | | MEDICAL | | | | | | CENTER | | | | | | LABORAT ORY | | | | | | [place] | | + + + +-------- -----+ + | MCV | 102.3 (H) | 80.0 - 100.0 fL | [facility] | | | | | | [facility]CRED | | | | | | HEART | | | | | | MEDICAL | | | | | | CENTER | | | | | | LABORAT ORY | | | | | | [place] | | + + + +-------- -----+ + | MCH | 33.1 | 27.0 - 34.0 pg | [facility] | | | | | | [facility] | | | | | | HEART | | | | | | MEDICAL | | | | | | CENTER | | | | | | LABORAT ORY | | | | | | [place] | | + + + +-------- -----+ + | MCHC | 32.4 | 32.0 - 35.5 | [facility] | | | | | g/dL | [facility] | | | | | | HEART | | | | | | MEDICAL | | | | | | CENTER | | | | | | LABORAT ORY | | | | | | [place] | | + + + +-------- -----+ + | RDW-CV | 15.4 | 11.0 - 15.5 % | [facility] | | | | | | [facility]CRED | | | | | | HEART | | | | | | MEDICAL | | | | | | CENTER | | | | | | LABORAT ORY | | | | | | [place] | | + + + +-------- -----+ + | Platelet | 192 | 150 - 400 K/uL | [facility] | | | Count | | | [facility]CRED | | | | | | HEART | | | | | | MEDICAL | | | | | | CENTER | | | | | | LABORAT ORY | | | | | | [place] | | + + + +-------- -----+ + | MPV | 10.2Comment: Performed | 9.3 - 12.7 fL | [facility] | | | | by [facility] [address], | | SACRED | | | | [place] [address] | | HEART | | | |Performed by [facility] [address], [place] [address] | | MEDICAL | | | | | | CENTER | | | | | | LABORAT ORY | | | | | | [facility]ER | | + + + +-------- -----+ + + + | Specimen | + + | Blood specimen | | (specimen) | + + + + + + + | Performing | Address | City/State/Zipcode | Phone Number | | Organization | | | | + + + + + | [facility] | [address] | [place] [address] | | | [facility] | | | | | LABORATORY [facility] | | | | + + + + + C-Reactive Protein (03/25/2019 9:18 AM PDT) + + + +--------- ----+ + | Component | Value | Ref Range | Performe d | Pathologist | | | | | At | Signature | + + + +--------- ----+ + | CRP | 1.5Comment: Performed | 0.0 - 1.5 mg/dL | [facility] | | | | by [facility] [address], | | SACRED | | | | [place] [address] | | HEART | | | |Performed by [facility] [address], [place] [address] | | MEDICAL | | | | | | CENTER | | | | | | LABORATO RY | | | | | | CERNER | | + + + +--------- ----+ + + + | Specimen | + + | Blood specimen | | (specimen) | + + + + + + + | Performing | Address | City/State/Zipcode | Phone Number | | Organization | | | | + + + + + | [facility] | [address] | [place] [address] | | | [facility] | | | | | LABORATORY [facility] | | | | + + + + + Basic Metabolic Panel (03/25/2019 9:18 AM PDT) + + + + + + | Component | Value | Ref Range | Performed | Pathologist | | | | | At | Signature | + + + + + + | Na | 135 | 135 - 145 | [facility] | | | | | mmol/L | [facility] | | | | | | HEART | | | | | | MEDICAL | | | | | | CENTER | | | | | | LABORATORY | | | | | | [place] | | + + + + + + | K | 5.0 | 3.5 - 5.0 | [facility] | | | | | mmol/L | [facility] | | | | | | HEART | | | | | | MEDICAL | | | | | | CENTER | | | | | | LABORATORY | | | | | | [place] | | + + + + + + | Cl | 101 | 99 - 109 mmol/L | [facility] | | | | | | [facility] | | | | | | HEART | | | | | | MEDICAL | | | | | | CENTER | | | | | | LABORATORY | | | | | | [facility] | | + + + + + + | CO2 | 28 | 21 - 28 mmol/L | [facility] | | | | | | [facility] | | | | | | HEART | | | | | | MEDICAL | | | | | | CENTER | | | | | | LABORATORY | | | | | | [place] | | + + + + + + | Anion Gap | 6 | 5 - 16 mmol/L | [facility] | | | | | | [facility] | | | | | | HEART | | | | | | MEDICAL | | | | | | CENTER | | | | | | LABORATORY | | | | | | [place] | | + + + + + + | Calcium | 8.0 (L) | 8.5 - 10.2 | [facility] | | | | | mg/dL | SACRED | | | | | | HEART | | | | | | MEDICAL | | | | | | CENTER | | | | | | LABORATORY | | | | | | [place] | | + + + + + + | BUN | 14 | 8 - 25 mg/dL | [facility] | | | | | | [facility] | | | | | | HEART | | | | | | MEDICAL | | | | | | CENTER | | | | | | LABORATORY | | | | | | [place] | | + + + + + + | Creatinine | 3.01 (H) | 0.50 - 1.00 | [facility] | | | | | mg/dL | [facility] | | | | | | HEART | | | | | | MEDICAL | | | | | | CENTER | | | | | | LABORATORY | | | | | | [place] | | + + + + + + | Glucose | 118 (H) | 65 - 99 mg/dL | [facility] | | | | | | [facility] | | | | | | HEART | | | | | | MEDICAL | | | | | | CENTER | | | | | | LABORATORY | | | | | | [facility] | | + + + + + + | Estimated | 15 (L)Comment: eGFR<60 | >=90 | [facility] | | | GFR | consistent with impaired | mL/min/1.73m2 | [facility]ED | | | | kidney function.For | | HEART | | | | Americans, | | MEDICAL | | | | multiply the calculated | | CENTER | | | | GFR by 1.210Performed by | | LABORATORY | | | | [facility] [address], | | [place] | | | | [place] [address] | | | | + + + + + + + + | Specimen | + + | Blood specimen | | (specimen) | + + + + + + + | Performing | Address | City/State/Zipcode | Phone Number | | Organization | | | | + + + + + | [facility] | [address] | [place] [address] | | | [facility] | | | | | LABORATORY [place] | | | | + + + + + ECHO Complete (03/25/2019 8:33 AM PDT) + +---------+ + + + | Component | Value | Ref Range | Performed | Pathologist | | | | | At | Signature | + +---------+ + + + | BASELINE | 104/60 | mmHg | [facility] | | | BLOOD | | | | | | PRESSURE | | | | | + +---------+ + + + | Patient | 137 lbs | | [facility] | | | Weight | | | | | | (lbs) | | | | | + +---------+ + + + | Patient | 68 in | | [facility] | | | Height | | | | | + +---------+ + + + | RA PRESSURE | 3 | mmHg | [facility] | | + +---------+ + + + | LVIDd | 4.5 | cm | [facility] | | + +---------+ + + + | FS | 27 | % | [facility] | | + +---------+ + + + | LA volume | 76.7 | mL | [facility] | | + +---------+ + + + | Ascending | 3.7 | cm | [facility] | | | aorta | | | | | + +---------+ + + + | PV peak | 2.41 | mmHg | [facility] | | | gradient | | | | | + +---------+ + + + | LVOT peak | 104 | cm/s | [facility] | | | skye | | | | | + +---------+ + + + | AV peak skye | 193 | cm/s | [facility] | | + +---------+ + + + | AV peak | 14.9 | mmHg | [facility] | | | gradient | | | | | + +---------+ + + + | LA Volume | 44 | mL/m2 | [facility] | | | Index | | | | | + +---------+ + + + | AV LVOT | 4 | mmHg | [facility] | | | Peak | | | | | | Gradient | | | | | + +---------+ + + + | TR Peak | 46 | mmHg | [facility] | | | Gradient | | | | | + +---------+ + + + | TR Velocity | 338 | cm | [facility] | | + +---------+ + + + | PI Peak | 77.6 | cm/s | [facility] | | | Velocity | | | | | + +---------+ + + + | LV | 9.41 | cm | [facility] | | | Diastolic | | | | | | Length 4C | | | | | + +---------+ + + + | LV Systolic | 20.8 | cm2 | [facility] | | | Area PSAX | | | | | + +---------+ + + + | LV | 62 | % | [facility] | | | [place] | | | | | | Biplane EF | | | | | + +---------+ + + + | LV ED | 121 | ml | [facility] | | | Volume | | | | | | ([place]) | | | | | + +---------+ + + + | LV ED | 70 | ml/m2 | [facility] | | | Volume | | | | | | Index | | | | | + +---------+ + + + | LV ES | 46.3 | ml | [facility] | | | Volume | | | | | + +---------+ + + + | RVSP | 49 | mmHg | [facility] | | | Estimated | | | | | + +---------+ + + + | MV E' | 6.53 | cm/s | [facility] | | | Lateral | | | | | | Velocity | | | | | + +---------+ + + + | MV E' | 4.9 | cm/s | [facility] | | | Septal | | | | | | Velocity | | | | | + +---------+ + + + | MV | 359 | msec | [facility] | | | Deceleratio | | | | | | n Time | | | | | + +---------+ + + + | MV E/A | 1.77 | | [facility] | | | Ratio | | | | | + +---------+ + + + | MV Peak | 90.3 | cm/s | [facility] | | | A-Wave | | | | | + +---------+ + + + | MV Peak | 160 | cm/s | [facility] | | | E-Wave | | | | | + +---------+ + + + | LA/Aorta | 1.68 | | [facility] | | | Ratio | | | | | + +---------+ + + + | LA Area | 23.5 | cm2 | [facility] | | + +---------+ + + + | LA Systolic | 32.63 | mmHg | [facility] | | | Pressure | | | | | + +---------+ + + + | MV E/E | 32.65 | | [facility] | | | SEPTAL | | | | | + +---------+ + + + | MV E/E | 24.5 | | [facility] | | | LATERAL | | | | | + +---------+ + + + | LV ES | 27 | ml/m2 | [facility] | | | Volume | | | | | | Index | | | | | + +---------+ + + + | LV Area | 37.3 | cm2 | [facility] | | | Diastolic | | | | | + +---------+ + + + | Heart Rate | 65 | | [facility] | | + +---------+ + + + | Aortic Root | 3.1 | cm | [facility] | | | Diameter | | | | | + +---------+ + + + | IVS | 1.3 | cm | [facility] | | | Diastolic | | | | | | Thickness | | | | | | MM | | | | | + +---------+ + + + | LVPW | 1.1 | cm | [facility] | | | Diastolic | | | | | | Thickness | | | | | | MM | | | | | + +---------+ + + + | LV Systolic | 3.3 | cm | [facility] | | | Diameter | | | | | | MM | | | | | + +---------+ + + + | AV Cusp | 1.9 | cm | [facility] | | | Seperation | | | | | | MM | | | | | + +---------+ + + + | LA Systolic | 5.2 | cm | [facility] | | | Diameter | | | | | | MM | | | | | + +---------+ + + + | LVEF-TTE | 60 | % | [facility] | | | TRANSTHORAC | | | | | | IC ECHO | | | | | + +---------+ + + + + + | Specimen | + + | | + + + + + | Narrative | Performed At | + + + | The left | [facility] | | ventricular ejection fraction is 60% Mildly dilated left atrium | | | There is no vegetation visualized on any of the valves There is mld | | | pulmonary hypertension, estimated right ventricular systolic pressure | | | (RVSP) is 49 mmH There is a left pleural effusion | | | There is a left pleural effusion | | | | | + + + + +---------+ + + | Performing | Address | City/State/Zipcode | Phone Number | | Organization | | | | + +---------+ + + | [facility] | | | | + +---------+ + + POC Glucose (03/25/2019 6:52 AM PDT) + + + + + + | Component | Value | Ref Range | Performed | Pathologist | | | | | At | Signature | + + + + + + | Glucose, | 107 (H)Comment: | 65 - 99 mg/dL | [facility] | | | POC | Performed by [facility] [address] | | [facility] | | | | [address] [place] | | HEART | | | | [address] | | MEDICAL | | | | | | CENTER | | | | | | LABORATORY | | | | | | [facility] | | + + + + + + + + | Specimen | + + | Blood specimen | | (specimen) | + + + + + + + | Performing | Address | City/State/Zipcode | Phone Number | | Organization | | | | + + + + + | [facility] | [address] | [place] [address] | | | [facility] | | | | | LABORATORY [facility] | | | | + + + + + POC Glucose (03/24/2019 8:11 PM PDT) + + + + + + | Component | Value | Ref Range | Performed | Pathologist | | | | | At | Signature | + + + + + + | Glucose, | 112 (H)Comment: | 65 - 99 mg/dL | [facility] | | | POC | Performed by [facility] [address] | | [facility] | | | | [address] [place] | | HEART | | | | [address] | | MEDICAL | | | | | | CENTER | | | | | | LABORATORY | | | | | | [facility] | | + + + + + + + + | Specimen | + + | Blood specimen | | (specimen) | + + + + + + + | Performing | Address | City/State/Zipcode | Phone Number | | Organization | | | | + + + + + | [facility] | [address] | [place] [address] | | | [facility] | | | | | LABORATORY [place] | | | | + + + + + Hepatitis B Core Ab, Total (03/24/2019 4:10 PM PDT) + + + + + + | Component | Value | Ref Range | Performed | Pathologist | | | | | At | Signature | + + + + + + | Hepatitis B | NegativeComment: | Negative | [facility] | | | Core Ab, | Performed At: [facility] | | [facility] | | | Total | [address] | | HEART | | | | [address] [place], [place] | | MEDICAL | | | | [phone] | | CENTER | | | | Lauro HOLDEN Ph:[phone] | | LABORATORY | | | | | | [facility] | | + + + + + + + + | Specimen | + + | Blood specimen | | (specimen) | + + + + + + + | Performing | Address | City/State/Zipcode | Phone Number | | Organization | | | | + + + + + | [facility] | [address] | [place] [address] | | | [facility] | | | | | [facility] | | | | + + + + + CT Guided Fine Needle Aspiration (03/24/2019 3:14 PM PDT) + + | Specimen | + + | | + + + + + | Narrative | Performed At | + + + | CT GUIDED T10-T11 DISC ASPIRATION CLINICAL INFORMATION: CT | [facility] | | guided aspiration of T11 or T12. send for gram stain and cultures. | | | PROCEDURE: Prior to the procedure, the risks and benefits were | | | explained to the patient and informed written and verbal consent | | | obtained. Patient was placed prone on the CT gantry and initial | | | localizing scans performed. Using lidocaine for local anesthesia and | | | intravenous sedation, the region is punctured with an 18 gauge | | | coaxial needle and specimens obtained at the level of T11-12. | | | Patient tolerated the procedure well. No immediate complications. | | | Drugs Utilized: Fentanyl 50mcg Versed 2mg Estimated Blood | | | Loss: Less than 50 cc's. At least one of the following CT dose | | | optimization techniques were used: Automated exposure control; | | | Adjustment of mA and/or kV according to patient size; Use of | | | iterative reconstruction technique. IMPRESSION: Uncomplicated CT | | | guided T11-12 disc aspiration. About 4 cc of serosanguineous fluid | | | was sent for lab analysis per ordering physician. Dictated by: | | | Lisbeth Murrell Michelle Signed by: Lisbeth Marcus Steve Sign | | | Date/Time: 03/24/2019 4:15 PM The radiologist has reviewed the | | | images and edited/approved the report. For interventional | | | procedures, the signing radiologist was present for the pearl portions | | | of the exam. | | + + + + + | Procedure Note | + + | Julian, Rad Results In - 03/24/2019 4:19 PM PDT | | CT GUIDED T10-T11 DISC ASPIRATION | | | | CLINICAL INFORMATION: | | CT guided aspiration of T11 or T12. send for gram stain and cultures. | | | | PROCEDURE: | | Prior to the procedure, the risks and benefits were explained to the | | patient and informed written and verbal consent obtained. Patient was | | placed prone on the CT gantry and initial localizing scans performed. | | Using lidocaine for local anesthesia and intravenous sedation, the | | region is punctured with an 18 gauge coaxial needle and specimens | | obtained at the level of T11-12. Patient tolerated the procedure | | well. No immediate complications. | | | | Drugs Utilized: | | Fentanyl 50mcg | | Versed 2mg | | | | Estimated Blood Loss: Less than 50 cc's. | | | | At least one of the following CT dose optimization techniques were | | used: Automated exposure control; Adjustment of mA and/or kV | | according to patient size; Use of iterative reconstruction technique. | | | | IMPRESSION: | | Uncomplicated CT guided T11-12 disc aspiration. About 4 cc of | | serosanguineous fluid was sent for lab analysis per ordering | | physician. | | | | Dictated by: Lisbeth Murrell Michelle | | | | Signed by: Lisbeth Marcus Steve | | Sign Date/Time: 03/24/2019 4:15 PM | | | | The radiologist has reviewed the images and edited/approved | | the report. For interventional procedures, the signing | | radiologist was present for the pearl portions of the exam. | + + + +---------+ + + | Performing | Address | City/State/Zipcode | Phone Number | | Organization | | | | + +---------+ + + | [facility] | | | | + +---------+ + + Culture, Fungus, Smear (03/24/2019 3:14 PM PDT) + + + + + + | Component | Value | Ref Range | Performed | Pathologist | | | | | At | Signature | + + + + + + | FINAL | No Yeast or Fungus | | [facility] | | | REPORT | isolated | | [facility] | | | | | | HEART | | | | | | MEDICAL | | | | | | CENTER | | | | | | LABORATORY | | | | | | [facility] | | + + + + + + | CALCOFLUOR | No fungal elements | | [facility] | | | | seenComment: Performed | | [facility] | | | | by [facility] [address], | | HEART | | | | [place] [address] | | MEDICAL | | | | | | CENTER | | | | | | LABORATORY | | | | | | [facility] | | + + + + + + + + | Specimen | + + | Body fluid sample | | (specimen) - | | Vertebrae, Thoracic | + + + + + + + | Performing | Address | City/State/Zipcode | Phone Number | | Organization | | | | + + + + + | [facility] | [address] | [place] [address] | | | [facility] | | | | | LABORATORY [facility] | | | | + + + + + Culture, AFB Smear (03/24/2019 3:14 PM PDT) + + + + + + | Component | Value | Ref Range | Performed | Pathologist | | | | | At | Signature | + + + + + + | FINAL | No acid fast bacillus | | [facility] | | | REPORT | isolated. | | [facility] | | | | | | HEART | | | | | | MEDICAL | | | | | | CENTER | | | | | | LABORATORY | | | | | | [facility] | | + + + + + + | AFB Smear | No Acid Fast Bacilli | | [facility] | | | Result | SeenComment: Performed | | [facility] | | | | by [facility] [address], | | HEART | | | | [place] [address] | | MEDICAL | | | | | | CENTER | | | | | | LABORATORY | | | | | | [facility] | | + + + + + + + + | Specimen | + + | Body fluid sample | | (specimen) - | | Vertebrae, Thoracic | + + + + + + + | Performing | Address | City/State/Zipcode | Phone Number | | Organization | | | | + + + + + | [facility] | [address] | [place] [address] | | | [facility] | | | | | LABORATORY [facility] | | | | + + + + + Culture, Aerobic + Anaerobic (03/24/2019 3:14 PM PDT) + + + + + + | Component | Value | Ref Range | Performed | Pathologist | | | | | At | Signature | + + + + + + | FINAL | No Growth | | [facility] | | | REPORT | No anaerobes isolated | | [facility] | | | | | | HEART | | | | | | MEDICAL | | | | | | CENTER | | | | | | LABORATORY | | | | | | [facility] | | + + + + + + | Gram Stain | Few Neutrophils No | | [facility] | | | | squamous epithelial | | [facility] | | | | cells seen No organisms | | HEART | | | | seen Comment: Performed | | MEDICAL | | | | by [facility] [address], | | CENTER | | | | [place] [address] | | LABORATORY | | | |Performed by [facility] [address], [place] [address] | | [facility] | | | | | | | | + + + + + + + + | Specimen | + + | Body fluid sample | | (specimen) - | | Vertebrae, Thoracic | + + + + + + + | Performing | Address | City/State/Zipcode | Phone Number | | Organization | | | | + + + + + | [facility] | [address] | [place] [address] | | | [facility] | | | | | LABORATORY [facility] | | | | + + + + + POC Glucose (03/24/2019 11:03 AM PDT) + + + + + + | Component | Value | Ref Range | Performed | Pathologist | | | | | At | Signature | + + + + + + | Glucose, | 107 (H)Comment: | 65 - 99 mg/dL | [facility] | | | POC | Performed by [facility] [address] | | [facility] | | | | [place] | | HEART | | | | [address] | | MEDICAL | | | | | | CENTER | | | | | | LABORATORY | | | | | | [place] | | + + + + + + + + | Specimen | + + | Blood specimen | | (specimen) | + + + + + + + | Performing | Address | City/State/Zipcode | Phone Number | | Organization | | | | + + + + + | [facility] | [address] | [place] [address] | | | [facility] | | | | | [facility] | | | | + + + + + POC Glucose (03/24/2019 6:36 AM PDT) + + + + + + | Component | Value | Ref Range | Performed | Pathologist | | | | | At | Signature | + + + + + + | Glucose, | 164 (H)Comment: | 65 - 99 mg/dL | [facility] | | | POC | Performed by [facility] [address] | | [facility]CR[facility] | | | | [address] [place] | | HEART | | | | [address] | | MEDICAL | | | | | | CENTER | | | | | | LABORATORY | | | | | | [facility] | | + + + + + + + + | Specimen | + + | Blood specimen | | (specimen) | + + + + + + + | Performing | Address | City/State/Zipcode | Phone Number | | Organization | | | | + + + + + | [facility] | [address] | [place] [address] | | | [facility] | | | | | LABORATORY [facility] | | | | + + + + + Protime INR (03/24/2019 5:18 AM PDT) + + + + + + | Component | Value | Ref Range | Performed | Pathologist | | | | | At | Signature | + + + + + + | Prothrombin | 13.3 | 12.0 - 14.2 sec | [facility] | | | Time | | | [facility] | | | | | | HEART | | | | | | MEDICAL | | | | | | CENTER | | | | | | LABORATORY | | | | | | [facility] | | + + + + + + | INR | 1.1Comment: Usual oral | 0.9 - 1.1 | [facility] | | | | anticoagulant range: 2.0 | | [facility] | | | | to 3.0 High level | | HEART | | | | oral anticoagulant | | MEDICAL | | | | range: 2.5 to | | CENTER | | | | 3.5Performed by [facility] [address] | | LABORATORY | | | | [address] [place] [place] | | [place] | | | | [address] | | | | + + + + + + + + | Specimen | + + | Blood specimen | | (specimen) | + + + + + + + | Performing | Address | City/State/Zipcode | Phone Number | | Organization | | | | + + + + + | [facility] | [address] | [place] [address] | | | [facility] CENTER | | | | | LABORATORY [facility] | | | | + + + + + CBC with Differential (03/24/2019 5:18 AM PDT) + + + + + + | Component | Value | Ref Range | Performed | Pathologist | | | | | At | Signature | + + + + + + | WBC | 5.46 | 3.80 - 11.00 | [facility] | | | | | K/uL | [facility] | | | | | | HEART | | | | | | MEDICAL | | | | | | CENTER | | | | | | LABORATORY | | | | | | [facility] | | + + + + + + | RBC | 3.02 (L) | 3.70 - 5.10 | [facility] | | | | | M/uL | [facility] | | | | | | HEART | | | | | | MEDICAL | | | | | | CENTER | | | | | | LABORATORY | | | | | | [facility] | | + + + + + + | Hemoglobin | 9.9 (L) | 11.3 - 15.5 | [facility] | | | | | g/dL | [facility] | | | | | | HEART | | | | | | MEDICAL | | | | | | CENTER | | | | | | LABORATORY | | | | | | [facility] | | + + + + + + | Hct | 31.3 (L) | 34.0 - 46.0 % | [facility] | | | | | | [facility] | | | | | | HEART | | | | | | MEDICAL | | | | | | CENTER | | | | | | LABORATORY | | | | | | [facility] | | + + + + + + | MCV | 103.6 (H) | 80.0 - 100.0 fL | [facility] | | | | | | [facility] | | | | | | HEART | | | | | | MEDICAL | | | | | | CENTER | | | | | | LABORATORY | | | | | | [facility] | | + + + + + + | MCH | 32.8 | 27.0 - 34.0 pg | [facility] | | | | | | [facility] | | | | | | HEART | | | | | | MEDICAL | | | | | | CENTER | | | | | | LABORATORY | | | | | | [facility] | | + + + + + + | MCHC | 31.6 (L) | 32.0 - 35.5 | [facility] | | | | | g/dL | [facility] | | | | | | HEART | | | | | | MEDICAL | | | | | | CENTER | | | | | | LABORATORY | | | | | | [facility] | | + + + + + + | RDW-CV | 16.0 (H) | 11.0 - 15.5 % | [facility] | | | | | | [facility] | | | | | | HEART | | | | | | MEDICAL | | | | | | CENTER | | | | | | LABORATORY | | | | | | [facility] | | + + + + + + | Platelet | 177 | 150 - 400 K/uL | [facility] | | | Count | | | [facility] | | | | | | HEART | | | | | | MEDICAL | | | | | | CENTER | | | | | | LABORATORY | | | | | | [facility] | | + + + + + + | MPV | 10.2 | 9.3 - 12.7 fL | [facility] | | | | | | [facility] | | | | | | HEART | | | | | | MEDICAL | | | | | | CENTER | | | | | | LABORATORY | | | | | | [facility] | | + + + + + + | % | 63.6 | 40.0 - 75.0 % | [facility] | | | Neutrophils | | | [facility] | | | | | | HEART | | | | | | MEDICAL | | | | | | CENTER | | | | | | LABORATORY | | | | | | [facility] | | + + + + + + | % | 23.6 | 15.0 - 48.0 % | [facility] | | | Lymphocytes | | | [facility] | | | | | | HEART | | | | | | MEDICAL | | | | | | CENTER | | | | | | LABORATORY | | | | | | [facility] | | + + + + + + | % Monocytes | 6.4 | 0.0 - 12.0 % | [facility] | | | | | | [facility] | | | | | | HEART | | | | | | MEDICAL | | | | | | CENTER | | | | | | LABORATORY | | | | | | [facility] | | + + + + + + | % | 4.6 | 0.0 - 7.0 % | [facility] | | | Eosinophils | | | [facility] | | | | | | HEART | | | | | | MEDICAL | | | | | | CENTER | | | | | | LABORATORY | | | | | | [facility] | | + + + + + + | % Basophils | 0.9 | 0.0 - 2.0 % | [facility] | | | | | | [facility] | | | | | | HEART | | | | | | MEDICAL | | | | | | CENTER | | | | | | LABORATORY | | | | | | [facility] | | + + + + + + | % Immature | 0.9Comment: Immature | 0.0 - 1.0 % | [facility] | | | Granulocyte | granulocytes are | | [facility] | | | s | left-shifted | | HEART | | | | granulocytes and do not | | MEDICAL | | | | equal blasts. They are | | CENTER | | | | composed of | | LABORATORY | | | | metamyelocytes, | | [facility] | | | | myelocytes, and | | | | | | promyelocytes. Their | | | | | | presence can be seen in | | | | | | infection, inflammation, | | | | | | certain medication's | | | | | | effect, or other bone | | | | | | marrow stimuli. | | | | | | Occasionally, | | | | | | persistent increase in | | | | | | immature granulocytes | | | | | | may be part of myeloid | | | | | | neoplastic process. | | | | | | Correlation with | | | | | | clinical findings is | | | | | | recommended for complete | | | | | | interpretation of this | | | | | | parameter. Please also | | | | | | note that peripheral | | | | | | blood with immature | | | | | | granulocytes >5% will be | | | | | | manually reviewed by | | | | | | lab personnel and/or | | | | | | pathologists. | | | | + + + + + + | Absolute | 3.47 | 1.90 - 7.40 | [facility] | | | Neutrophils | | K/uL | [facility] | | | | | | HEART | | | | | | MEDICAL | | | | | | CENTER | | | | | | LABORATORY | | | | | | [facility] | | + + + + + + | Absolute | 1.29 | 1.00 - 3.90 | [facility] | | | Lymphocytes | | K/uL | [facility] | | | | | | HEART | | | | | | MEDICAL | | | | | | CENTER | | | | | | LABORATORY | | | | | | [facility] | | + + + + + + | Absolute | 0.35 | 0.00 - 0.80 | [facility] | | | Monocytes | | K/uL | [facility] | | | | | | HEART | | | | | | MEDICAL | | | | | | CENTER | | | | | | LABORATORY | | | | | | [facility] | | + + + + + + | Absolute | 0.25 | 0.00 - 0.50 | [facility] | | | Eosinophils | | K/uL | [facility] | | | | | | HEART | | | | | | MEDICAL | | | | | | CENTER | | | | | | LABORATORY | | | | | | [facility] | | + + + + + + | Absolute | 0.05 | 0.00 - 0.10 | [facility] | | | Basophils | | K/uL | [facility] | | | | | | HEART | | | | | | MEDICAL | | | | | | CENTER | | | | | | LABORATORY | | | | | | [facility] | | + + + + + + | Absolute | 0.05 (H)Comment: | 0.00 - 0.03 | [facility] | | | Immature | Performed by [facility] [address] | K/uL | [facility] | | | Granulocyte | [place] | | HEART | | | s | [phone] | | MEDICAL | | | | | | CENTER | | | | | | LABORATORY | | | | | | [facility] | | + + + + + + + + | Specimen | + + | Blood specimen | | (specimen) | + + + + + + + | Performing | Address | City/State/Zipcode | Phone Number | | Organization | | | | + + + + + | [facility] | [address] [place] [address]. | [place] [address] | | | [facility] | | | | | LABORATORY [facility] | | | | + + + + + Basic Metabolic Panel (03/24/2019 5:18 AM PDT) + + + + + + | Component | Value | Ref Range | Performed | Pathologist | | | | | At | Signature | + + + + + + | Na | 141 | 135 - 145 | [facility] | | | | | mmol/L | [facility] | | | | | | HEART | | | | | | MEDICAL | | | | | | CENTER | | | | | | LABORATORY | | | | | | [facility] | | + + + + + + | K | 4.4 | 3.5 - 5.0 | [facility] | | | | | mmol/L | [facility] | | | | | | HEART | | | | | | MEDICAL | | | | | | CENTER | | | | | | LABORATORY | | | | | | [facility] | | + + + + + + | Cl | 105 | 99 - 109 mmol/L | [facility] | | | | | | [facility] | | | | | | HEART | | | | | | MEDICAL | | | | | | CENTER | | | | | | LABORATORY | | | | | | [facility] | | + + + + + + | CO2 | 27 | 21 - 28 mmol/L | [facility] | | | | | | [facility] | | | | | | HEART | | | | | | MEDICAL | | | | | | CENTER | | | | | | LABORATORY | | | | | | [facility] | | + + + + + + | Anion Gap | 9 | 5 - 16 mmol/L | [facility] | | | | | | [facility] | | | | | | HEART | | | | | | MEDICAL | | | | | | CENTER | | | | | | LABORATORY | | | | | | [facility] | | + + + + + + | Calcium | 7.9 (L) | 8.5 - 10.2 | [facility] | | | | | mg/dL | [facility] | | | | | | HEART | | | | | | MEDICAL | | | | | | CENTER | | | | | | LABORATORY | | | | | | [facility] | | + + + + + + | BUN | 19 | 8 - 25 mg/dL | [facility] | | | | | | [facility] | | | | | | HEART | | | | | | MEDICAL | | | | | | CENTER | | | | | | LABORATORY | | | | | | [facility] | | + + + + + + | Creatinine | 4.02 (H) | 0.50 - 1.00 | [facility] | | | | | mg/dL | [facility] | | | | | | HEART | | | | | | MEDICAL | | | | | | CENTER | | | | | | LABORATORY | | | | | | [facility] | | + + + + + + | Glucose | 158 (H) | 65 - 99 mg/dL | [facility] | | | | | | [facility] | | | | | | HEART | | | | | | MEDICAL | | | | | | CENTER | | | | | | LABORATORY | | | | | | [facility] | | + + + + + + | Estimated | 10 (L)Comment: eGFR<60 | >=90 | [facility] | | | GFR | consistent with impaired | mL/min/1.73m2 | [facility] | | | | kidney function.For | | HEART | | | | [place], | | MEDICAL | | | | multiply the calculated | | CENTER | | | | GFR by 1.210Performed by | | LABORATORY | | | | [facility] [address], | | [place] | | | | [place] [address] | | | | + + + + + + + + | Specimen | + + | Blood specimen | | (specimen) | + + + + + + + | Performing | Address | City/State/Zipcode | Phone Number | | Organization | | | | + + + + + | [facility] | [address] | [place] [address] | | | [facility] | | | | | LABORATORY [facility] | | | | + + + + + documented in this encounter Visit Diagnoses Not on filedocumented in this encounter Administered Medications + +--------+ +-------+------+------+ | Medication Order | MAR | Action | Dose | Rate | Site | | | Action | Date | | | | + +--------+ +-------+------+------+ | aspirin EC tablet 81 mg 81 mg, | Given | 03/31/20 | 81 mg | | | | Oral, DAILY, First dose on Wed | | 19 12:59 | | | | | 03/24/19 at 0900, Do not cut or | | PM PDT | | | | | crush., | | | | | | + +--------+ +-------+------+------+ +-------+ +-------+---+---+ | Given | 03/30/20 | 81 mg | | | | | 19 8:03 | | | | | | AM PDT | | | | +-------+ +-------+---+---+ | Given | 03/29/20 | 81 mg | | | | | 19 9:47 | | | | | | AM PDT | | | | +-------+ +-------+---+---+ +---+---+ | | | +---+---+ + +-------+ +--------+---+---+ | calcium acetate (PHOSLO) | Given | 03/31/20 | 667 mg | | | | capsule 667 mg 667 mg, Oral, 3 | | 19 1:03 | | | | | TIMES DAILY WITH MEALS, First | | PM PDT | | | | | dose on Wed03/27/19 at 1200 | | | | | | + +-------+ +--------+---+---+ +-------+ +--------+---+---+ | Given | 03/30/20 | 667 mg | | | | | 19 7:03 | | | | | | PM PDT | | | | +-------+ +--------+---+---+ | Given | 03/30/20 | 667 mg | | | | | 19 1:12 | | | | | | PM PDT | | | | +-------+ +--------+---+---+ +---+---+ | | | +---+---+ + +---------+ +-----+-------+---+ | cefepime (MAXIPIME) 1 g in | New Bag | 03/31/20 | 1 g | 100 | | | sodium chloride 0.9% 50 mL IVPB | | 19 2:32 | | mL/hr | | | 1 g, Intravenous, Administer over | | PM PDT | | | | | 30 Minutes, EVERY 24 HOURS | | | | | | | (Daily), First dose (after last | | | | | | | modification) on 03/26/19 at | | | | | | | 0900, Give medication daily. On | | | | | | | days patient receives dialysis, | | | | | | | give after dialysis., Renally | | | | | | | dosed per P&T protocol. Activate | | | | | | | system and mix before use., | | | | | | | Indications: Osteomyelitis, | | | | | | | SEPSIS OF UNKNOWN ETIOLOGY | | | | | | + +---------+ +-----+-------+---+ +---------+ +-----+-------+---+ | New Bag | 03/30/20 | 1 g | 100 | | | | 19 1:42 | | mL/hr | | | | PM PDT | | | | +---------+ +-----+-------+---+ | New Bag | 03/29/20 | 1 g | 100 | | | | 19 4:21 | | mL/hr | | | | PM PDT | | | | +---------+ +-----+-------+---+ +---+---+ | | | +---+---+ + +-------+ +--------+---+---+ | cholecalciferol (VITAMIN D-3) | Given | 03/31/20 | 4,000 | | | | tablet 4,000 Units 4,000 Units, | | 19 1:01 | Units | | | | Oral, DAILY, First dose on Wed | | PM PDT | | | | | 03/24/19 at 0900 | | | | | | + +-------+ +--------+---+---+ +-------+ +--------+---+---+ | Given | 03/30/20 | 4,000 | | | | | 19 8:05 | Units | | | | | AM PDT | | | | +-------+ +--------+---+---+ | Given | 03/29/20 | 4,000 | | | | | 19 9:46 | Units | | | | | AM PDT | | | | +-------+ +--------+---+---+ + +---+ | | | + +---+ | dextrose 10% (D10W) infusion | | | at 50 mL/hr, Intravenous, | | | CONTINUOUS PRN, hypoglycemia, | | | Starting Wed03/24/19 at 0206, | | | Start infusion if unable to | | | maintain blood glucose greater | | | than 70 mg/dL after two rounds of | | | hypoglycemia treatment. Recheck | | | blood glucose 30 minutes after | | | starting D10W then at least | | | hourly and PRN until it is | | | discontinued. Call provider to | | | discuss parameters for D10W | | | discontinuation., | | + +---+ | | | + +---+ | dextrose 50% injection 12.5-25 | | | g 12.5-25 g, Intravenous, PRN, | | | Low Blood Sugar, Starting Fri | | | 03/24/19 at 0206, For blood | | | glucose 50-69 mg/dl - give 12.5 g | | | For blood glucose less than 50 | | | mg/dl - give 25 g, | | + +---+ | | | + +---+ + +-------+ +--------+---+---+ | docusate sodium (COLACE) | Given | 03/30/20 | 100 mg | | | | capsule 100 mg 100 mg, Oral, 2 | | 19 9:32 | | | | | TIMES DAILY PRN, Constipation, | | AM PDT | | | | | Starting 03/24/19 at 0159, 1st | | | | | | | line agent for constipation | | | | | | | relief., | | | | | | + +-------+ +--------+---+---+ +-------+ +--------+---+---+ | Given | 03/26/20 | 100 mg | | | | | 19 8:35 | | | | | | PM PDT | | | | +-------+ +--------+---+---+ | Given | 03/25/20 | 100 mg | | | | | 19 10:43 | | | | | | AM PDT | | | | +-------+ +--------+---+---+ +---+---+ | | | +---+---+ + +-------+ +---------+---+---+ | doxercalciferol (HECTOROL) | Given | 03/29/20 | 0.5 mcg | | | | capsule 0.5 mcg 0.5 mcg, Oral, | | 19 10:42 | | | | | THREE TIMES WEEKLY (Once per day | | AM PDT | | | | | on Wed), First dose on | | | | | | | Wed03/24/19 at 0900 | | | | | | + +-------+ +---------+---+---+ +-------+ +---------+---+---+ | Given | 03/27/20 | 0.5 mcg | | | | | 19 1:50 | | | | | | PM PDT | | | | +-------+ +---------+---+---+ | Given | 03/24/20 | 0.5 mcg | | | | | 19 9:00 | | | | | | AM PDT | | | | +-------+ +---------+---+---+ +---+---+ | | | +---+---+ + +-------+ +---------+---+---+ | epoetin karthik-epbx (RETACRIT) | Given | 03/31/20 | 10,000 | | | | 10,000 units/mL injection 10,000 | | 19 10:30 | Units | | | | Units 10,000 Units, Intravenous, | | AM PDT | | | | | THREE TIMES WEEKLY (Once per day | | | | | | | on Wed), First dose on | | | | | | | Wed03/31/19 at 1215, Keep in | | | | | | | refrigerator. Do not shake., | | | | | | | ESRD-related (i.e. dialysis) | | | | | | | indication? Yes | | | | | | + +-------+ +---------+---+---+ +---+---+ | | | +---+---+ + +-------+ +-------+---+---+ | furosemide (LASIX) tablet 80 mg | Given | 03/31/20 | 80 mg | | | | 80 mg, Oral, DAILY, First dose | | 19 1:00 | | | | | on Wed03/24/19 at 0900 | | PM PDT | | | | + +-------+ +-------+---+---+ +-------+ +-------+---+---+ | Given | 03/30/20 | 80 mg | | | | | 19 8:01 | | | | | | AM PDT | | | | +-------+ +-------+---+---+ | Given | 03/29/20 | 80 mg | | | | | 19 9:46 | | | | | | AM PDT | | | | +-------+ +-------+---+---+ +---+---+ | | | +---+---+ + +-------+ +--------+---+---+ | gabapentin (NEURONTIN) capsule | Given | 03/31/20 | 100 mg | | | | 100 mg 100 mg, Oral, DAILY, | | 19 11:13 | | | | | First dose on [facility] 03/30/19 at 1130 | | AM PDT | | | | + +-------+ +--------+---+---+ +-------+ +--------+---+---+ | Given | 03/30/20 | 100 mg | | | | | 19 1:11 | | | | | | PM PDT | | | | +-------+ +--------+---+---+ +---+---+ | | | +---+---+ + +-------+ +--------+---+---+ | gabapentin (NEURONTIN) capsule | Given | 03/30/20 | 300 mg | | | | 300 mg 300 mg, Oral, NIGHTLY, | | 19 9:11 | | | | | First dose on Dian 03/30/19 at 2100 | | PM PDT | | | | + +-------+ +--------+---+---+ + +---+ | | | + +---+ | hydrALAZINE (APRESOLINE) | | | injection 5 mg 5 mg, | | | Intravenous, EVERY 4 HOURS PRN, | | | sbp> 180, Starting 03/27/19 at | | | 1841 | | + +---+ | | | + +---+ + +-------+ +-------+---+---+ | hydrALAZINE (APRESOLINE) tablet | Given | 03/31/20 | 25 mg | | | | 25 mg 25 mg, Oral, 2 TIMES | | 19 1:30 | | | | | DAILY, First dose (after last | | PM PDT | | | | | modification) on Wed03/29/19 at | | | | | | | 0900 | | | | | | + +-------+ +-------+---+---+ +-------+ +-------+---+---+ | Given | 03/30/20 | 25 mg | | | | | 19 9:10 | | | | | | PM PDT | | | | +-------+ +-------+---+---+ | Given | 03/30/20 | 25 mg | | | | | 19 8:04 | | | | | | AM PDT | | | | +-------+ +-------+---+---+ + +---+ | | | + +---+ | insulin lispro (humaLOG) | | | injection (vial) 0-12 Units 0-12 | | | Units, Subcutaneous, 4 TIMES | | | DAILY WITH MEALS & NIGHTLY, First | | | dose on Wed03/24/19 at 0800, | | | CORRECTION SCALE: Blood Glucose [...] scheduled: AC, NPO, Daytime | | | 6928-5093 Use NIGHT DOSE for | | | doses scheduled: HS, 3AM, | | | Nighttime 5783-6794 If the BG is | | | not checked before the patient | | | starts eating, do not give | | | correction insulin. If HS insulin | | | given, check blood glucose at | | | 3AM. Only for use with U-100 | | | insulin syringe., | | + +---+ | | | + +---+ + +-------+ +--------+---+---+ | labetalol (NORMODYNE) tablet | Given | 03/31/20 | 200 mg | | | | 200 mg 200 mg, Oral, 2 TIMES | | 19 1:31 | | | | | DAILY, First dose on Wed03/24/19 | | PM PDT | | | | | at 0900 | | | | | | + +-------+ +--------+---+---+ +-------+ +--------+---+---+ | Given | 03/31/20 | 200 mg | | | | | 19 1:03 | | | | | | PM PDT | | | | +-------+ +--------+---+---+ | Given | 03/30/20 | 200 mg | | | | | 19 9:10 | | | | | | PM PDT | | | | +-------+ +--------+---+---+ +---+---+ | | | +---+---+ + +-------+ +-------+---+---+ | labetalol (TRANDATE) 5 mg/mL | Given | 03/27/20 | 10 mg | | | | injection 10-20 mg 10-20 mg, | | 19 5:10 | | | | | Intravenous, EVERY 4 HOURS PRN, | | PM PDT | | | | | SBP greater than 170, Starting | | | | | | | 03/24/19 at 0201 | | | | | | + +-------+ +-------+---+---+ +-------+ +-------+---+---+ | Given | 03/26/20 | 20 mg | | | | | 19 8:54 | | | | | | AM PDT | | | | +-------+ +-------+---+---+ | Given | 03/24/20 | 20 mg | | | | | 19 3:07 | | | | | | AM PDT | | | | +-------+ +-------+---+---+ +---+---+ | | | +---+---+ + +-------+ +--------+---+---+ | levothyroxine (SYNTHROID) | Given | 03/31/20 | 75 mcg | | | | tablet 75 mcg 75 mcg, Oral, | | 19 7:13 | | | | | DAILY BEFORE BREAKFAST, First | | AM PDT | | | | | dose on Wed03/24/19 at 0730, Give | | | | | | | before breakfast., | | | | | | + +-------+ +--------+---+---+ +-------+ +--------+---+---+ | Given | 03/30/20 | 75 mcg | | | | | 19 6:57 | | | | | | AM PDT | | | | +-------+ +--------+---+---+ | Given | 03/29/20 | 75 mcg | | | | | 19 6:58 | | | | | | AM PDT | | | | +-------+ +--------+---+---+ +---+---+ | | | +---+---+ + +---------+ +---------+---+ + | lidocaine (LIDODERM) 5% patch 1 | Patch | 03/29/20 | 1 patch | | Back-Rig | | patch 1 patch, Transdermal, | Applied | 19 9:48 | | | ht | | DAILY, First dose on 03/26/19 | | AM PDT | | | Middle | | at 1200, Apply for 12 hours, then | | | | | | | remove for 12 hours., Time to | | | | | | | remove patch: 9:00 PM | | | | | | + +---------+ +---------+---+ + + + +---------+---+ + | Patch Applied | 03/28/20 | 1 patch | | Back-Low | | | 19 10:32 | | | er | | | AM PDT | | | Middle | + + +---------+---+ + | Patch Applied | 03/27/20 | 1 patch | | Back-Lef | | | 19 1:51 | | | t Lower | | | PM PDT | | | | + + +---------+---+ + +---+---+ | | | +---+---+ + +-------+ +--------+---+---+ | losartan (COZAAR) tablet 100 mg | Given | 03/31/20 | 100 mg | | | | 100 mg, Oral, DAILY, First dose | | 19 1:00 | | | | | on 03/24/19 at 0900 | | PM PDT | | | | + +-------+ +--------+---+---+ +-------+ +--------+---+---+ | Given | 03/30/20 | 100 mg | | | | | 19 8:05 | | | | | | AM PDT | | | | +-------+ +--------+---+---+ | Given | 03/29/20 | 100 mg | | | | | 19 9:47 | | | | | | AM PDT | | | | +-------+ +--------+---+---+ +---+---+ | | | +---+---+ + +-------+ +--------+---+---+ | melatonin tablet 0.5 mg 0.5 | Given | 03/25/20 | 0.5 mg | | | | mg, Oral, NIGHTLY PRN, Insomnia, | | 19 8:24 | | | | | Starting Wed03/24/19 at 0159 | | PM PDT | | | | + +-------+ +--------+---+---+ +-------+ +--------+---+---+ | Given | 03/24/20 | 0.5 mg | | | | | 19 9:15 | | | | | | PM PDT | | | | +-------+ +--------+---+---+ +---+---+ | | | +---+---+ + +-------+ +-------+---+---+ | NIFEdipine (PROCARDIA XL) ER | Given | 03/31/20 | 90 mg | | | | tablet 90 mg 90 mg, Oral, DAILY, | | 19 1:30 | | | | | First dose (after last | | PM PDT | | | | | modification) on Wed03/29/19 at | | | | | | | 0900, Do not cut or crush., | | | | | | + +-------+ +-------+---+---+ +-------+ +-------+---+---+ | Given | 03/30/20 | 90 mg | | | | | 19 8:05 | | | | | | AM PDT | | | | +-------+ +-------+---+---+ | Given | 03/29/20 | 90 mg | | | | | 19 9:47 | | | | | | AM PDT | | | | +-------+ +-------+---+---+ +---+---+ | | | +---+---+ + +-------+ +---------+---+---+ | olopatadine (PATANOL) 0.1% | Given | 03/31/20 | 2 drops | | | | ophthalmic solution 1-2 drop 1-2 | | 19 1:05 | | | | | drop, Both Eyes, 2 TIMES DAILY, | | PM PDT | | | | | First dose on Wed03/24/19 at 0900 | | | | | | + +-------+ +---------+---+---+ +-------+ +---------+---+---+ | Given | 03/30/20 | 2 drops | | | | | 19 9:13 | | | | | | PM PDT | | | | +-------+ +---------+---+---+ | Given | 03/30/20 | 2 drops | | | | | 19 8:06 | | | | | | AM PDT | | | | +-------+ +---------+---+---+ +---+---+ | | | +---+---+ + +-------+ +------+---+---+ | ondansetron (ZOFRAN ODT) | Given | 03/31/20 | 4 mg | | | | disintegrating tablet 4 mg 4 mg, | | 19 4:55 | | | | | Oral, EVERY 6 HOURS PRN, Nausea, | | PM PDT | | | | | Vomiting, Starting 03/24/19 | | | | | | | at 0159, First line agent, | | | | | | + +-------+ +------+---+---+ +-------+ +------+---+---+ | Given | 03/30/20 | 4 mg | | | | | 19 1:25 | | | | | | PM PDT | | | | +-------+ +------+---+---+ | Given | 03/27/20 | 4 mg | | | | | 19 6:52 | | | | | | PM PDT | | | | +-------+ +------+---+---+ +---+---+ | | | +---+---+ + +-------+ +-------+---+---+ | oxyCODONE (ROXICODONE) tablet | Given | 03/31/20 | 10 mg | | | | 5-10 mg 5-10 mg, Oral, EVERY 4 | | 19 2:03 | | | | | HOURS PRN, Pain, Starting Fri | | PM PDT | | | | | 03/31/19 at 1336 | | | | | | + +-------+ +-------+---+---+ +---+---+ | | | +---+---+ + +-------+ +-------+---+---+ | pantoprazole (PROTONIX) DR | Given | 03/31/20 | 40 mg | | | | tablet 40 mg 40 mg, Oral, DAILY | | 19 7:14 | | | | | BEFORE BREAKFAST, First dose on | | AM PDT | | | | | 03/24/19 at 0730, Do not cut | | | | | | | or crush., Indication: GERD | | | | | | + +-------+ +-------+---+---+ +-------+ +-------+---+---+ | Given | 03/30/20 | 40 mg | | | | | 19 6:57 | | | | | | AM PDT | | | | +-------+ +-------+---+---+ | Given | 03/29/20 | 40 mg | | | | | 19 6:58 | | | | | | AM PDT | | | | +-------+ +-------+---+---+ +---+---+ | | | +---+---+ + +-------+ +---------+---+---+ | probiotic capsule 1 capsule 1 | Given | 03/31/20 | 1 | | | | capsule, Oral, 2 TIMES DAILY, | | 19 12:59 | capsule | | | | First dose on Wed03/24/19 at | | PM PDT | | | | | 0230, Do not open or crush. Do | | | | | | | not open or crush., | | | | | | + +-------+ +---------+---+---+ +-------+ +---------+---+---+ | Given | 03/30/20 | 1 | | | | | 19 9:10 | capsule | | | | | PM PDT | | | | +-------+ +---------+---+---+ | Given | 03/30/20 | 1 | | | | | 19 8:54 | capsule | | | | | AM PDT | | | | +-------+ +---------+---+---+ +---+---+ | | | +---+---+ + +-------+ +--------+---+---+ | senna (SENOKOT) tablet 8.6 mg | Given | 03/26/20 | 8.6 mg | | | | 8.6 mg, Oral, 2 TIMES DAILY PRN, | | 19 8:35 | | | | | Constipation, Starting Fri | | PM PDT | | | | | 03/24/19 at 0159, If docusate | | | | | | | ineffective or not ordered., | | | | | | + +-------+ +--------+---+---+ +-------+ +--------+---+---+ | Given | 03/25/20 | 8.6 mg | | | | | 19 10:43 | | | | | | AM PDT | | | | +-------+ +--------+---+---+ + +---+ | | | + +---+ | sodium chloride 0.9% (NS) bolus | | | 100 mL 100 mL, Intravenous, | | | Administer over 15 Minutes, | | | DIALYSIS - PRN, Hypotension, | | | Starting Wed03/24/19 at 1010, | | | Treatment date(s): 03/24/2019, For | | | BP less than 100 mm Hg. Give | | | 100 mL bolus up to 1000 mL. | | | DIALYSIS USE ONLY - DISCONTINUE | | | AFTER DIALYSIS THERAPY IS | | | COMPLETE, Dialysis | | + +---+ | | | + +---+ | vancomycin per pharmacy | | | PHARMACY CONSULT, Starting Wed | | | 03/24/19 at 1551, Indications: | | | Osteomyelitis | | + +---+ | | | + +---+ documented in this encounter
--- OUTSIDE RECORDS SUMMARY | ~2019-09-08 | XMS | Encounter Summary ---
Demographics + + + | Address | [address] | | | [place] [address] | + + + | Home Phone [...] + + + | Author | [facility] | | | and [place] | + + + | Organization | [facility] | | | and [place] | + + + | Address | Unknown | + + + | Phone | Unavailable | + + + Support + + + + + | Name | Relationship | Address | Phone | + + + + + | India Tilley | ECON | [address] | | | | | [place], [place] | | | | | [address] | | + + + + + | Yina La | ECON | Unknown | | + + + + + | Yina Peterson | ECON | Unknown | | + + + + + | Leatha Casillas | ECON | Unknown | | + + + + + Care Team Providers + +------+ + | Care Magnetic Tape Winder Name | Role | Phone | + [...] + + | 09/22/ | Telephone | [facility] [place] | Darlin Moseley W, | Nephrology | | 2018 | | NEPHROLOGY [address] | [address] | Appointment | | | | [facility] | [address] [place] | | | | | [place] | [place] [address] | | | | | [address] | [phone] | | | | | [phone] | | | +--------+ + + + [...]
--- OUTSIDE RECORDS SUMMARY | ~2019-09-08 | XMS | Encounter Summary ---
Demographics + + + | Address | [address] | | | [place] [address] | + + + | Home Phone | | + + + | Preferred Language | Unknown | + + + | Marital Status | Single | + + + | Yarsanism Affiliation | Unknown | + + + | Race | Unknown | + + + | Ethnic Group | Unknown | + + + Author + + + | Author | [facility] | | | and [place] | + + + | Organization | [facility] | | | and [...] [place], [place] | | | | | [address] | | + + + + + | Yina La | ECON | Unknown | | + + + + + | Yina Peterson | ECON | Unknown | | + + + + + | Leatha Casillas | ECON | Unknown | | + + + + + Care Team Providers + +------+ + | Care Cable Tester Name | Role | Phone | + [...] Closed | | Nephrology | Diagnoses | Kiana, | Toni, | | | | | End stage | Nan Esteban, | Gopi Roman DO | | | | | renal | PA-C [address] | [address] [place] [address] | | | | | disease | | [address] | | | | | ([facility]) | CONF[facility]ATED | [address] | | | | | Procedures | WAY | [place] | | | | | [place] OFFICE | [place], | [address] Phone: | | | | | OUTPATIENT | [place] [address] | [phone] | | | | | VISIT 25 | Phone: | Fax: | | | | | [place] | [phone] | [phone] | | | | | ESRD RELATED | Fax: | | | | | | SVC MONTHLY | [phone] | | | | | | 20&/> YR | | | | | | | OLD 4/> | | | | | | | VISITS | | | +--------+--------+ + + + + Encounter Details +--------+ + + + + | Date | Type | Department | Care Team | Description | +--------+ + + + + | 07/11/ | Off-Site | [facility] | Gopi Muñoz | End stage renal | | 2018 | Visit | NEPHROLOGY [address] | M, DO [address] | disease (HCC) | | | | [address] | [place] | (Primary Dx) | | | | [place], [place] | [place], [place] | | | | | [address] | [address] | | | | | [phone] | | | +--------+ + + + [...] encounter Progress Notes Gopi Muñoz DO - 07/11/2018 3:15 PM PDT[Patient NOT seen. Has been AMA from clin ic for >30 days.] documented in thi s encounter Plan of Treatment Not on filedocumented as of this encounter Visit Diagnoses + + | Diagnosis | + + | End stage renal disease (HCC) - Primary End stage renal disease | + + documented in this encounter"
--- OUTSIDE RECORDS SUMMARY | ~2019-09-08 | XMS | Encounter Summary ---
Demographics + + + | Address | [address] | | | [place] [address] | + + + | Home Phone | | + + + | Preferred Language | Unknown | + + + | Marital Status | Single | + + + | Lutheran Affiliation | Unknown | + + + | Race | Unknown | + + + | Ethnic Group | Unknown | + + + Author + + + | Author | [facility] | | | and [place] | + + + | Organization | [facility] | | | and [place] | + + + | Address | Unknown | + + + | Phone | Unavailable | + + + Support + + + + + | Name | Relationship | Address | Phone | + + + + + | India Tilley | ECON | [address] | | | | | [place], [place] | | | | | [address] | | + + + + + | Yina La | ECON | Unknown | | + + + + + | Yina Peterson | ECON | Unknown | | + + + + + | Leatha Casillas | ECON | Unknown | | + + + + + Care Team Providers + +------+ + | Care Information Systems Security Officer Name | Role | Phone | + +------+ + | Renato Pierson [facility] | PCP | | + +------+ + Reason for Visit Diagnostic/Screening (Emergency) + +--------+ + + + [...] | | | | | intervertebr | [address] | | | | | al disc | [address] | [place], [place] | | | | | (pyogenic), | [place], [place] | [address] | | | | | thoracic | [address] | Phone: | | | | | region ([facility]) | Phone: | [phone] | | | | | | [phone] | Fax: | | | | | 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: | [phone] | | | | | s of | [phone] | | | | | | thoracic | | | | | | | vertebra | | | | | | | ([facility]) | | | | | [...] | +--------+ + + + + | 05/22/ | Hospital | [facility] | Fabiana Miller, | No Show | | 2019 | Encounter | [facility] | Nick Apodaca MD | | | | | [address] | [address] | | | | | [place], [place] | [place] [address] | | | | | [address] | [phone] | | | | | [phone] | | | +--------+ + + + [...]
--- OUTSIDE RECORDS SUMMARY | ~2019-09-08 | XMS | Encounter Summary ---
Demographics + + + | Address | [address] | | | [place] [address] | + + + | Home Phone | | + + + | Preferred Language | Unknown | + + + | Marital Status | Single | + + + | Hindu Affiliation | Unknown | + + + | Race | Unknown | + + + | Ethnic Group | Unknown | + + + Author + + + | Author | [facility] | | | and [place] | + + + | Organization | [facility] | | | and [place] | + + + | Address | Unknown | + + + | Phone | Unavailable | + + + Support + + + + + | Name | Relationship | Address | Phone | + + + + + | India Tilley | ECON | [address] | | | | | [place], [place] | | | | | [address] | | + + + + + | Yina La | ECON | Unknown | | + + + + + | Yina Peterson | ECON | Unknown | | + + + + + | Leatha Casillas | ECON | Unknown | | + + + + + Care Team Providers + +------+ + | Care Tanker Service Attendant Name | Role | Phone | + +------+ + PCP | Unavailable | + +------+ + Reason for Visit +--------+ + | Reason | Comments | +--------+ + | Other | appointment | +--------+ + Encounter Details +--------+ + + + + | Date | Type | Department | Care Team | Description | +--------+ + + + + | 03/09/ | Telephone | [facility] | Santos Stephenson | Other (appointment) | | 2018 | | SURGERY [address] | MD Kinga, FACS [address] | | | | | [address] [place], [place] | [address] [facility] | | | | | [address] | [place] [address] | | | | | [phone] | [phone] | | | | | | | [...]
--- OUTSIDE RECORDS SUMMARY | ~2019-09-08 | XMS | Encounter Summary ---
Demographics + + + | Address | [address] | | | [place] [address] | + + + | Home Phone | | + + + | Preferred Language | Unknown | + + + | Marital Status | Single | + + + | Uatsdin Affiliation | Unknown | + + + | Race | Unknown | + + + | Ethnic Group | Unknown | + + + Author + + + | Author | [facility] | | | and [place] | + + + | Organization | [facility] | | | and [place] | + + + | Address | Unknown | + + + | Phone | Unavailable | + + + Support + + + + + | Name | Relationship | Address | Phone | + + + + + | India Tilley | ECON | [address] | | | | | [place], [place] | | | | | [address] | | + + + + + | Yina La | ECON | Unknown | | + + + + + | Yina Peterson | ECON | Unknown | | + + + + + | Leatha Casillas | ECON | Unknown | | + + + + + Care Team Providers + +------+ + | Care Education Liaison Name | Role | Phone | + +------+ + PCP | Unavailable | + +------+ + Encounter Details +--------+---------+ + + + | Date | Type | Department | Care Team | Description | +--------+---------+ + + + | 01/04/ | Surgery | [facility] | Santos Stephenson | Right Transposed | | 2018 | | MED CTR OR INTRA OP | MD Kinga, FACS [address] | Basilic Vein to | | | | [address] | [address] [place] | Proximal Radial | | | | [place], [place] | [place] [address] | Artery | | | | [address] | [phone] | | | | | [phone] | | | +--------+---------+ + + + [...] what medicines and drugsyou take. This includes rseo-own-kvl nter medicines, herbs, supplements, alcohol or other [...] ke ep you safe. Date Last Reviewed: 08/13/201619994955-6103 [employer]. [address] [place] [address]. All righ ts reserved. This information is not intended as a substitute for professional medical care. Always follow your healthcare professional's instructions. [facility] POST-OP INSTRUCTIONS: Arterio-Venous Fistula 1. Keep the [...] | | | | | PDT | ([facility]) (N18.5) | | + +--------+ + + [...] [address] | [place] | [phone] | | [facility] | | [address] | | | - LABORATORY | | [...] + | [facility] | [address] | [place] | [phone] | | [facility] | | [address] | | | - LABORATORY | | [...] [address] | [place] | [phone] | | [facility] | | [address] | | | - LABORATORY | | [...] [address] | [place] | [phone] | | [facility] | | [address] | | | - LABORATORY | | [...] mL/min/1.73m2 | [facility] | | | [facility] | RATE,ESTIMATED | | MEDICAL | | | | mL/min/1.95t5Bzqd than | | CENTER - | | [...] [address] | [place] | [phone] | | [facility] | | [address] | | | - LABORATORY | | [...]
--- OUTSIDE RECORDS SUMMARY | ~2019-09-08 | XMS | Encounter Summary ---
Demographics + + + | Address | [address] | | | [place] [address] | + + + | Home Phone | | + + + | Preferred Language | Unknown | + + + | Marital Status | Single | + + + | Mosque Affiliation | Unknown | + + + | Race | Unknown | + + + | Ethnic Group | Unknown | + + + Author + + + | Author | [facility] | | | and [place]it[place] | + + + | Organization | [facility] | | | and [place] | + + + | Address | Unknown | + + + | Phone | Unavailable | + + + Support + + + + + | Name | Relationship | Address | Phone | + + + + + | India Tilley | ECON | [address] | | | | | [place], [place] | | | | | [address] | | + + + + + | Yina La | ECON | Unknown | | + + + + + | Yina Peterson | ECON | Unknown | | + + + + + | Leatha Casillas | ECON | Unknown | | + + + + + Care Team Providers + +------+ + | Care Records Management Specialist Name | Role | Phone | [...] | renal | PA-C [address] | [address] | | | | | disease | [place] | [place], [place] | | | | | ([facility]) | [place] | [address] [facility] | | | | | Procedures | [address] | [facility] [place] | | | | | [place] ESRD | [facility] | [address] Phone: | | | | | RELATED [place] | [place] | [phone] | | | | | MONTHLY | [address] | Fax: | | | | | 20&/> YR OLD | Phone: | [phone] | | | | | 4/> VISITS | [phone] | | | | | | | Fax: | | | | | | | [phone] | | + +--------+ + + + + Encounter Details +--------+ + + + + | Date | Type | Department | Care Team | Description | +--------+ + + + + | 01/09/ | Off-Site | [facility] | Gopi Muñoz | End stage renal | | 2019 | Visit | NEPHROLOGY [address] | M, DO [address] | disease (HCC) | | | | [address] | [place] | (Primary Dx) | | | | [place] | [place], [place] | | | | | [address] | [address] | | | | | [phone] | | | +--------+ + + + [...] + + + | Blood Pressure | 200/103 | 01/09/2019 3:00 PM | | | | | PDT | | + + + + + | Pulse | - | - | | + + + + + | Temperature | 36.2 C (97.1 F) | 01/09/2019 3:00 PM | | | | | PDT [...] + + documented as of this encounter Gopi Enrique DO - 01/09/2019 11:00 AM PDT Subjective: DIALYSIS NOTE Patient ID: Estefani Tilley is a 73 y.o. female. HPI Comments: Monthly dialysis visit for this 73 Y0 female who was seen at the [facility], [place] on the MWF shift. She is intermittently dysphoric. However sh e denies cramps, hiccups or nausea. She refused to go for rehab after ORIF of her hip at [facility] on 12/04/18. In addition, I personally consulted [facility] but the patie nt has refused. Nevertheless she is progressing well by all circumstances. Unfortunately, she is very hypertensive and clinically it appears that she is not taking he r meds?? She becomes very convoluted when asked what her rationale is for not taking her me ds but states that "I hate pills.!" She is A&O x3 when it is discussed that this could resu lt in increased CV mortality or . PAST MEDICAL HISTORY: 1. ESRD 2 diabetic glomerulosclerosis with the patient beginning Inpt HD in 11/03/2017 and then was DC to the [facility] at [place], [place]. Unfortunately, she h as had intermittent [...] Outpatient Medications Marked as Taking for the 01/09/19 encounter (Off-Site Visit) with Ant Muñoz, DO Medication Sig Dispense Refill doxercalciferol (HECTOROL) 1 MCG CAPS Take 0.5 mg by mouth Three times a week. epoetin karthik (EPOGEN, PROCRIT) 10,000 units/mL injection Inject 4,000 Units under the s kin Three times a week. Allergies Allergen Reactions Amoxicillin Other (See Comments) Patient stated she can't tolerate amoxicillin and stated its hard on her stomach. Lisinopril Pt states she does not remember what was the reaction she had to lisinopril. I asked her if it gave her a cough and she said "I cant remember, maybe it made me sick to my stomach". Naprosyn [Naproxen] Objective: BP (!) 200/103 | Temp 36.2 C (97.1 F) EDW 68.5kg Physical Exam Heart: Regular rate and rhythm with grade 1/6 YADI at LSB, no S3 or rub. Lungs: CTA bilaterally. No rales or wheezes. Abdomen: soft, obese, nontender, NABS. Extremities: 2+ edema, clubbing, or cyanosis. LAB: BUN 43, Cr 5.4, K+ 4.6, HCO3 24, albumin 3.1, Ca++ 8.8, P04 6.0, PTH 216, last HbA1c = 6.6%, Hb 11.4, T Sat = [not listed], spKT/V = 1.40. Assessment: 1. ESRD --she appears well dialyzed clinical by the most recent spKT/V. However, she may need vasodilators as well to help control her blood pressure. She does not appear to have a great deal of insight into this? 2. Hypertension--suboptimal control as the patient refuses to take oral meds consistently . 3. Anemia 2 to CKD-- markedly improved from last month. Will decrease her EPO by 25% to target the Hb 10-11 g/dl. 4. Nutrition--states that she does not have adequate resources for food at home? However, she does not entertain going to an assisted living center. She prefers to stay with family I believe her sisters? She is on ONSP. 5. Type 2 DM-- good control by the most recent HbA1c. 6. CKD/MBD--PTH is stable on a minimal dose of Hectorol. I encouraged her that she is doi ng better with her daily phosphorus restriction. 7. Hypothyroidism--need to recheck the TSH quarterly. However, she currently is not taki ng her L-thyroxine. Plan: 1. I had a long discussion with Estefani for >30 minutes that untreated hypertension can res ult in increased heart attack, stroke rate, and aortic aneurysm. However she still does not appear to see the value in taking antihypertensive meds regularly? Again, she is alert and oriented x3.* 2. Will decrease her EPO by 25% to target the hemoglobin <11.0 g/dl. 3. Need to repeat her iron profile. 4. She will be rechecked by the Nephrology Service in 2 weeks. Electronically signed by Gopi Muñoz DO. 01/15/19 14:57 CC: [facility] Scott Koroma MD [facility], [place], [place] tGopi rick DO - 01/09/2019 11:00 AM PD T documented in thi s encounter Plan of Treatment Not on filedocumented as of this encounter Visit Diagnoses + + | Diagnosis | + + | End stage renal disease (HCC) - Primary End stage renal disease | + + documented in this encounter
--- OUTSIDE RECORDS SUMMARY | ~2019-09-08 | XMS | Encounter Summary ---
Demographics + + + | Address | [address] | | | [place] [address] | + + + | Home Phone [...] | Author | [facility] | | | and [place] | + + + | Organization | [facility] | | | and [place] | + + + | Address | Unknown | + + + | Phone | Unavailable | + + + Support + + + + + | Name | Relationship | Address | Phone | + + + + + | India Tilley | ECON | [address] | | | | | [place], [place] | | | | | [address] | | + + + + + | Yina La | ECON | Unknown | | + + + + + | Yina Peterson | ECON | Unknown | | + + + + + | Leatha Casillas | ECON | Unknown | | + + + + + Care Team Providers + +------+ + | Care Single Stroke Preformer Name | Role | Phone | + +------+ + PCP | Unavailable | + +------+ + Encounter Details +--------+ + + + + | Date | Type | Department | Care Team | Description | +--------+ + + + + | 10/01/ | Abstract | [facility] [place] | Chidi Cummins MD | Other iron | | 2016 | | OTOLARYNGOLOGY [address] | [address] | deficiency anemia | | | | [address] | [address], | (Primary Dx); | | | | [place], [place] | [place] [address] | Arthritis; Other | | | | [address] | [phone] | back pain; History | | | | [phone] | | of blood clots; | | | | | | Cancer (HCC); Heart | | | | | | disease; Essential | | | | | | hypertension; | | | | | | Seasonal allergies; | | | | | | Hypercholesteremia | +--------+ + + + + Social [...] + | Diagnosis | + + | Other iron deficiency anemia - Primary | + + | Arthritis Arthropathy, unspecified, site unspecified | + + | Other back pain | + + | History of blood clots Personal history of venous thrombosis and embolism | + + | Cancer (HCC) Other malignant neoplasm without specification of site | + + | Heart disease Heart disease, unspecified | + + | Essential hypertension Unspecified essential hypertension | + + | Seasonal allergies Allergic rhinitis, cause unspecified | + + | Hypercholesteremia Pure hypercholesterolemia | + + documented in this encounter"
--- OUTSIDE RECORDS SUMMARY | ~2019-09-08 | XMS | Encounter Summary ---
Demographics + + + | Address | [address] | | | [place] [address] | + + + | Home Phone [...] | Author | [facility] | | | and [place]it[place] | + + + | Organization | [facility] | | | and [place] | + + + | Address | Unknown | + + + | Phone | Unavailable | + + + Support + + + + + | Name | Relationship | Address | Phone | + + + + + | India Tilley | ECON | [address] | | | | | [place], [place] | | | | | [address] | | + + + + + | Yina La | ECON | Unknown | | + + + + + | Yina Peterson | ECON | Unknown | | + + + + + | Leatha Casillas | ECON | Unknown | | + + + + + Care Team Providers + +------+ + | Care Parole Board Member Name | Role | Phone | + +------+ + PCP | Unavailable | + +------+ + Reason for Visit +---------+ + | Reason | Comments | +---------+ + | Post Op | Right AVF - PD cath placement | +---------+ + Evaluate & Treat (Routine) [...] | Surgery | kidney | DO [address] | [address] | | | | | disease, | [place], [place] | [address] | | | | | stage V | [address] | [place], | | | | | ([facility]) | [place] | [place] [address] | | | | | | [address] | Phone: | | | | | | Phone: | [phone] | | | | | | [phone] | Fax: | | | | | | Fax: | [phone] | | | | | | [phone] | | +--------+ + + + + + Encounter Details +--------+---------+ + + + | Date | Type | Department | Care Team | Description | +--------+---------+ + + + | 03/10/ | Office | [facility] | Santos Stephenson | Chronic kidney | | 2018 | Visit | SURGERY [address] | MD Kinga, FACS [address] | disease, stage V | | | | [place], [place] | [address] [facility] | (HCC) (Primary Dx); | | | | [address] | [facility] [place] [id number] | Post-operative state | | | | [phone] | [phone] | | | | | | | [...] + + + + | Pulse | 63 | 03/10/2018 9:24 AM | | | | | PDT | | + + + + + | Temperature | 36.8 C (98.2 F) | 03/10/2018 9:24 AM | | | | | PDT | | + + + + + | Respiratory Rate | - | - | | + + + + + | Oxygen Saturation | 98% | 03/10/2018 9:24 AM | | | | | PDT | | + + + + + | Inhaled Oxygen | - | - | | | Concentration | | | | + + + + + | Weight | 76.3 kg (168 lb 3.4 | 03/10/2018 9:24 AM | | | | oz) | PDT | | + + + + + | Height | 172.7 cm (5' 8") | 03/10/2018 9:24 AM | | | | | PDT | | + + + + + | Body Mass Index | 25.58 | 03/10/2018 9:24 AM | | | | | PDT [...] documented as of this encounter Progress Notes Santos Stephenson MD, FACS - 03/10/2018 9:10 AM PDTFormatting of this note might be diff erent from the original. Patient Identification: Estefani Tilley 1945 Is a 72 y.o. female , a patien t of Francisca Womack PA-C. Patient is here with her son, Indu. SUBJECTIVE/ NOTES S: Date of surgery: 02/04/2018. Title of surgery: Hemodialysis tunneled catheter placeme nt in RIGHT IJ by Dr. Heather Navarro. Date of surgery: 01/04/2018. Title of surgery: Creation of RIGHT AV Fistu la, RIGHT transposition of basilic vein. Physician notes: Patient arrives 34 day(s) s/p hemodialysis tunneled catheter placement in RIGHT IJ (previou s one fell out at home) . She reports her RIGHT arm hurts, states the pain is located in h er shoulder mostly. She has been going to dialysis in [place], [place] , states things are going well. She would l cristina to start using RIGHT arm AV fistula as soon as possible. Mainly so she can shower. PAST MEDICAL HISTORY Past Medical History: Diagnosis [...] Artery; Surgeon: Santos Stephenson MD, FACS; Location: [facility] Allergies Allergen Reactions Lisinopril Pt states she does not remember what was the reaction she had to lisinopril. I asked her if it gave her a cough and she said "I cant remember, maybe it made me sick to my stomach". Naproxen MEDICATIONS: Outpatient Encounter Prescriptions as of 03/10/2018 Medication Sig Dispense Refill [DISCONTINUED] amLODIPine (NORVASC) 10 MG tablet Take 1 tablet by mouth Daily. 50 table t 0 artificial tears (AKWA TEARS) ophthalmic ointment [...] by mouth every 6 hours as needed. (Patient not taking: Reported on 03/10/2018) 5 tablet 0 insulin glargine (LANTUS SOLOSTAR) [...] facility-administered encounter medications on file as of 03/10/2018. Family History Problem Relation Age of Onset Diabetes Other grandfather Diabetes Other grandmother Cancer Sister She reports that she has never smoked. She has never used smokeless tobacco. She reports th at she does not drink alcohol or use drugs. PHYSICAL EXAM Pulse 63 | Temp 36.8 C (98.2 F) (Temporal) | Ht 1.727 m (5' 8") | Wt 76.3 kg (168 lb 3.4 oz) | SpO2 98% | BMI 25.58 kg/m Body mass index is 25.58 kg/m. General Appearance: Alert, cooperative, no distress, appears stated age Skin: Warm and dry Upper Extremities: RIGHT arm has easily visible transposed vein, fingers pink and warm. St seda thrill just above elbow. Palpable Pulses: RIGHT LEFT Brachial Radial absent Ulnar Neurologic: Alert and oriented x3,Moving all 4 extremities. , Gait normal ULTRASOUND REPORT: PATIENT NAME : Estefani Tilley EQUIPMENT: 139[employer] with 10-5 mHertz probe. INDICATIONS: S/P Right Transposion of Basilic Vein FINDING: Transposed RIGHT arm basilic vein fistula measures 6.5 mm and is 1 mm deep to the skin Exce llent flow present. IMPRESSION: Functioning RIGHT transposed AV Fistula. Assessment 1. Chronic kidney disease, stage V (HCC) 2. Post-operative state Plan 1) S/P Creation of RIGHT AV Fistula, RIGHT transposition of basilic vein Patient recovering well post surgery. Will give OK to use RIGHT arm AV fistula starting 2017. Informed patient after 3 successful uses of her transposed RIGHT arm basilic vein they can remove her RIGHT IJ catheter. Patient to follow with agronomy manager and primary care. I will be available should future bates rgical complications develop. I appreciate having been involved in the care of this patient . Santos Stephenson MD, FACS Vascular and General Surgery documented in this enc ounter Plan of Treatment Not on filedocumented as of this encounter Visit Diagnoses + + | Diagnosis | + + | Chronic kidney disease, stage V (HCC) - Primary Chronic kidney disease, Stage V | + + | Post-operative state Other postprocedural status | + + documented in this encounter
--- OUTSIDE RECORDS SUMMARY | ~2019-09-08 | XMS | Encounter Summary ---
Demographics + + + | Address | [address] | | | [place] [address] | + + + | Home Phone [...] | [facility] | | | and Kamaljitana | + + + | Organization | [facility] | | | and [place] | + + + | Address | Unknown | + + + | Phone | Unavailable | + + + Support + + + + + | Name | Relationship | Address | Phone | + + + + + | India Tilley | ECON | [address] | | | | | [place], [place] | | | | | [address] | | + + + + + | Yina La | ECON | Unknown | | + + + + + | Yina Peterson | ECON | Unknown | | + + + + + | Leatha Casillas | ECON | Unknown | | + + + + + Care Team Providers + +------+ + | Care Line Production Cook Name | Role | Phone | + +------+ + PCP | Unavailable | + +------+ + Encounter Details +--------+ + + + + | Date | Type | Department | Care Team | Description | +--------+ + + + + | 07/07/ | Abstract | [facility] | Gopi Muñoz | | | 2017 | | NEPHROLOGY [address] | M, DO [address] | | | | | [address] [facility] [address] | [place] [address] | | | | | [place], [place] | [place] | | | | | [address] | [address] | | | | | [phone] | | | +--------+ + + + [...]
--- OUTSIDE RECORDS SUMMARY | ~2019-09-08 | XMS | Encounter Summary ---
Demographics + + + | Address | [address] | | | [place] [address] | + + + | Home Phone | | + + + | Preferred Language | Unknown | + + + | Marital Status | Single | + + + | Anglican Affiliation | Unknown | + + + | Race | Unknown | + + + | Ethnic Group | Unknown | + + + Author + + + | Author | [facility] | | | and [place] | + + + | Organization | [facility] | | | and [place] | + + + | Address | Unknown | + + + | Phone | Unavailable | + + + Support + + + + + | Name | Relationship | Address | Phone | + + + + + | India Tilley | ECON | [address] | | | | | [place], [place] | | | | | [address] | | + + + + + | Yina La | ECON | Unknown | | + + + + + | Yina Peterson | ECON | Unknown | | + + + + + | Leatha Casillas | ECON | Unknown | | + + + + + Care Team Providers + +------+ + | Care Group Director Name | Role | Phone | + +------+ + PCP | Unavailable | + +------+ + Encounter Details +--------+ + + + + | Date | Type | Department | Care Team | Description | +--------+ + + + + | 11/08/ | [facility] | [facility] | Provider, | | | 2018 | Exam | [facility] | [address] | | | | | IMAGING | [address] | | | | | [phone] | [place] [address] | | +--------+ + + + + [...] for comparison only - no result from [place]. | [facility] | + + + + +---------+ + + | Performing | Address | City/State/Zipcode | Phone Number | | Organization | | | | + +---------+ + + | [facility] | | | | + +---------+ + + documented in this encounter Visit Diagnoses Not on filedocumented in this encounter"
--- OUTSIDE RECORDS SUMMARY | ~2019-09-08 | XMS | Encounter Summary ---
Demographics + + + | Address | [address] | | | [place] [address] | + + + | Home Phone | | + + + | Preferred Language | Unknown | + + + | Marital Status | Single | + + + | Orthodox Affiliation | Unknown | + + + | Race | Unknown | + + + | Ethnic Group | Unknown | + + + Author + + + | Author | [facility] | | | and [place] | + + + | Organization | [facility] | | | and [place] | + + + | Address | Unknown | + + + | Phone | Unavailable | + + + Support + + + + + | Name | Relationship | Address | Phone | + + + + + | India Tilley | ECON | [address] | | | | | [place], [place] | | | | | [address] | | + + + + + | Yina La | ECON | Unknown | | + + + + + | Yina Peterson | ECON | Unknown | | + + + + + | Leatha Casillas | ECON | Unknown | | + + + + + Care Team Providers + +------+ + | Care Type Inspector Name | Role | Phone | + +------+ + PCP | Unavailable | + +------+ + Encounter Details +--------+ + + + + | Date | Type | Department | Care Team | Description | +--------+ + + + + | 11/24/ | Hospital | [facility] | | | | 2006 - | Encounter | [facility] | | | | | | CENTER [facility] [address] | | | | 12/11/ | | [place] | | | | 2006 | | [address] | | | | | | [phone] | | | +--------+ + + + [...]
--- OUTSIDE RECORDS SUMMARY | ~2019-09-08 | XMS | Encounter Summary ---
Demographics + + + | Address | [address] | | | [place] [address] | + + + | Home Phone [...] + + + | Author | [facility] | | | and [place] | + + + | Organization | [facility] | | | and [place] | + + + | Address | Unknown | + + + | Phone | Unavailable | + + + Support + + + + + | Name | Relationship | Address | Phone | + + + + + | India Tilley | ECON | [address] | | | | | [place], [place] | | | | | [address] | | + + + + + | Yina La | ECON | Unknown | | + + + + + | Yina Peterson | ECON | Unknown | | + + + + + | Leahta Casillas | ECON | Unknown | | + + + + + Care Team Providers + +------+ + | Care Emergency Room Specialist Name | Role | Phone | + +------+ + | Renato Pierson ADMINISTRATIVE ASSISTANT OFFICE MANAGER | PCP | | + +------+ + Encounter Details +--------+ + + + + | Date | Type | Department | Care Team | Description | +--------+ + + + + | 05/18/ | Orders Only | [facility] | Maribeth Vaughan | 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 | | [address] | Y, Audio Visual Equipment Rental Clerk | intervertebral disc | | | | [place] | | (pyogenic), thoracic | | | | [address] | | region ([facility]); | | | | [phone] | | Osteomyelitis of | | | | | | thoracic vertebra | | | | | | ([facility]) | +--------+ + + + + Social [...] | + +--------+ + + + | SEDIMENTATION RATE | Routin | 05/18/2019 | Infection of | Results for this | | | e | 3:45 PM | intervertebral disc | procedure are in the | | | | PDT | (pyogenic), thoracic | results section. | | | | | region ([facility]) | | | | | | Osteomyelitis of | | | | | | thoracic vertebra | | | | | | (HCC) | | + +--------+ + + + | CBC WITH | Routin | 05/18/2019 | Infection of | Results for this | | DIFFERENTIAL | e | 3:45 PM | intervertebral disc | procedure are in the | | | | PDT | (pyogenic), thoracic | results section. | | | | | region ([facility]) | | | | | | Osteomyelitis of | | | | | | thoracic vertebra | | | | | | ([facility]) | | + +--------+ + + + | C-REACTIVE PROTEIN | Routin | 05/18/2019 | Infection of | Results for this | | | e | 3:45 PM | intervertebral disc | procedure are in the | | | | PDT | (pyogenic), thoracic | results section. | | | | | region ([facility]) | | | | | | Osteomyelitis of | | | | | | thoracic vertebra | | | | | | ([facility]) | | + +--------+ + + + | COMPREHENSIVE | Routin | 05/18/2019 | Infection of | Results for this | | METABOLIC PANEL | e | 3:45 PM | intervertebral disc | procedure are in the | | | | PDT | (pyogenic), thoracic | results section. | | | | | region ([facility]) | | | | | | Osteomyelitis of | | | | | | thoracic vertebra | | | | | | ([facility]) | | + +--------+ + + + | CULTURE, BLOOD | Routin | 05/18/2019 | Infection of | Results for this | | | e | 3:08 PM | intervertebral disc | procedure are in the | | | | PDT | (pyogenic), thoracic | results section. | | | | | region ([facility]) | | | | | | Osteomyelitis of | | | | | | thoracic vertebra | | | | | | ([facility]) | | + +--------+ + + + documented in this encounter Results CBC with Differential (05/18/2019 3:45 PM PDT) [...] | | | Absolute | performed at [facility];[address] | LAB | | | | [address] | | [facility] | | | | [address];[place] [address] | | LABORATORY | | + + + + + + + + | Specimen | + + | Blood | + + + + + + + | Performing | Address | City/State/Zipcode | Phone Number | | Organization | | | | + + + + + | REFERENCE LAB | [address] | [place] [address] | [phone] | | [facility] | Bl[address] | | | | LABORATORY | | | | + + + + + | REFERENCE LAB | [address] | [place] [address] | | | [facility] | Bl[address] | [...] | | | | | performed at [facility];[address] | | | | | | [address] | | | | | | [address];[place] [address] | | | | | | | | | | + + + + + + + + | Specimen | + + | Blood | + + + + + + + | Performing | Address | City/State/Zipcode | Phone Number | | Organization | | | | + + + + + | REFERENCE LAB | [address] | [place] [address] | [phone] | | [facility] | Blvd[address] | | | | LABORATORY | | | | + + + + + | REFERENCE LAB | [address] | [place] [address] | | | [facility] | Bl[address] | [...] REFERENCE | | | | performed at [facility];[address] | | LAB | | | | [address] | | [facility] | | | | [address];[place] [address] | | LABORATORY | | + + + + + + + + | Specimen | + + | Blood | + + + + + + + | Performing | Address | City/State/Zipcode | Phone Number | | Organization | | | | + + + + + | REFERENCE LAB | [address] [place] [address] | [place] [address] | [phone] | | [facility] | Blvd[address] | | | | LABORATORY | | | | + + + + + | REFERENCE LAB | [address] [place] [address] | [place] [address] | | | [facility] | Blvd. | | | | LABORATORY | | | | + + + + + C-Reactive Protein (05/18/2019 3:45 PM PDT) + + + + + + | Component | Value | Ref Range | Performed | Pathologist | | | | | At | Signature | + + + + + + | CRP | 4.4 (H)Comment: Testing | <0.5 mg/dL | REFERENCE | | | | performed at [facility];[address] | | LAB | | | | [place] | | [facility] | | | | [address];[place] [address] | | LABORATORY | | + + + + + + + + | Specimen | + + | Blood | + + + + + + + | Performing | Address | City/State/Zipcode | Phone Number | | Organization | | | | + + + + + | REFERENCE LAB | [address] | [place] [address] | [phone] | | [facility] | Blvd[address] | | | | LABORATORY | | | | + + + + + | REFERENCE LAB | [address] | [place] [address] | | | [facility] | Bl[address] | [...] REFERENCE | | | | [facility];[address] | | LAB | | | | Blvd;[place] | | [facility] | | | | [id number]: Testing | | LABORATORY | | | | performed at [facility], [address] | | | [address], | | | | | | [place] [address] | | | | + + + [...] + + | REFERENCE LAB | [address] | [place] [address] | [phone] | | [facility] | Blvd. | | | | LABORATORY | | | | + + + + + | REFERENCE LAB | [address] | [place] [address] | | | [facility] | Blvd. | | | | LABORATORY | | | | + + + + + documented in this encounter Visit Diagnoses + + | Diagnosis | + + | Infection of intervertebral disc (pyogenic), thoracic region (HCC) | + + | Osteomyelitis of thoracic vertebra (HCC) Unspecified osteomyelitis, other specified | | site | + + documented in this encounter"
--- OUTSIDE RECORDS SUMMARY | ~2019-09-08 | XMS | Encounter Summary ---
Demographics + + + | Address | [address] | | | [place] [address] | + + + | Home Phone [...] | [facility] | | | and [place] | + + + | Organization | [facility] | | | and [place] | + + + | Address | Unknown | + + + | Phone | Unavailable | + + + Support + + + + + | Name | Relationship | Address | Phone | + + + + + | India Tilley | ECON | [address] | | | | | [place], [place] | | | | | [address] | | + + + + + | Yina La | ECON | Unknown | | + + + + + | Yina Peterson | ECON | Unknown | | + + + + + | Leatha Casillas | ECON | Unknown | | + + + + + Care Team Providers + +------+ + | Care Activities Volunteer Name | Role | Phone | + +------+ + PCP | Unavailable | + +------+ + Encounter Details +--------+ + + + + | Date | Type | Department | Care Team | Description | +--------+ + + + + | 12/27/ | Documentati | [facility] [place] | Gopi Muñoz | | | 2019 | on | NEPHROLOGY [address] | M, DO [address] | | | | | [address] | [place] | | | | | [place], [place] | [place] | | | | | [address] | [address] | | | | | [phone] | | | +--------+ + + + [...] Progress Tatiana Gamble - 12/27/2018 9:[address] [facility] order, sign ed and dated 12/23/[address] Muñoz. Sent to scan. documented in this encounter Plan of Treatment Not on filedocumented as of this encounter Visit Diagnoses Not on filedocumented in this encounter"
--- OUTSIDE RECORDS SUMMARY | ~2019-09-08 | XMS | Encounter Summary ---
Demographics + + + | Address | [address] | | | [place] [address] | + + + | Home Phone [...] | [facility] | | | and [place] | + + + | Organization | [facility] | | | and [place] | + + + | Address | Unknown | + + + | Phone | Unavailable | + + + Support + + + + + | Name | Relationship | Address | Phone | + + + + + | India Tilley | ECON | [address] | | | | | [place], [place] | | | | | [address] | | + + + + + | Yina La | ECON | Unknown | | + + + + + | Yina Peterson | ECON | Unknown | | + + + + + | Leatha Casillas | ECON | Unknown | | + + + + + Care Team Providers + +------+ + | Care Pigment Mixer Name | Role | Phone | + +------+ + | Renato villarreal DIPESH | PCP | | + +------+ + Encounter Details +--------+ + + + + | Date | Type | Department | Care Team | Description | +--------+ + + + + | 08/16/ | Telephone | [facility] | Fransisco Johnston MD | | | 2019 | | CENTER INTRA OP | [address] | | | | | [address] | [facility] | | | | | [place], [place] | [place] [address] | | | | | [address] | [phone] | | | | | [phone] | | | +--------+ + + + [...]
--- OUTSIDE RECORDS SUMMARY | ~2019-09-08 | XMS | Encounter Summary ---
Demographics + + + | Address | [address] | | | [place] [address] | + + + | Home Phone [...] | Author | [facility] | | | and [place] | + + + | Organization | [facility] | | | and [place] | + + + | Address | Unknown | + + + | Phone | Unavailable | + + + Support + + + + + | Name | Relationship | Address | Phone | + + + + + | India Tilley | ECON | [address] | | | | | [place], [place] | | | | | [address] | | + + + + + | Yina La | ECON | Unknown | | + + + + + | Yina Peterson | ECON | Unknown | | + + + + + | Leatha Casillas | ECON | Unknown | | + + + + + Care Team Providers + +------+ + | Care Electronics Detail Draftsperson Name | Role | Phone | + [...] | Surgery | kidney | DO [address] | [address] | | | | | disease, | [place], [place] | [address] | | | | | stage V | [address] | [place], | | | | | ([facility]) | [facility], [place] | [place] [address] | | | | | | [address] | Phone: | | | | | | Phone: | [phone] | | | | | | [phone] | Fax: | | | | | | Fax: | [phone] | | | | | | [phone] | | +--------+ + + + + + Encounter Details +--------+---------+ + + + | Date | Type | Department | Care Team | Description | +--------+---------+ + + + | 01/10/ | Office | [facility] | Santos Stephenson | Chronic kidney | | 2018 | Visit | SURGERY [address] | MD Glenn FACS [address] | disease, stage V | | | | [place], [place] | [address] [place] | (HCC) (Primary Dx); | | | | [address] | [place] [place] [address] | Post-operative state | | | | [phone] | [phone] | | | | | | | [...] Placement; Surgeon: Nora Leo MD; Location : [facility] MAIN OR VEIN SURGERY Right 01/04/2018 Procedure: Right Transposed Basilic Vein to Proximal Radial Artery; Surgeon: Santos Stephenson MD, FACS; Location: [facility] MAIN OR Allergies Allergen Reactions Lisinopril [...] + | Chronic kidney disease, stage V ([facility]) - Primary Chronic kidney disease, Stage V | + + | Post-operative state Other postprocedural status | + + documented in this encounter
--- OUTSIDE RECORDS SUMMARY | ~2019-09-08 | XMS | Encounter Summary ---
Demographics + + + | Address | [address] | | | [place] [address] | + + + | Home Phone [...] [facility] | | | and [place] | + + + | Organization | [facility] | | | and [place] | + + + | Address | Unknown | + + + | Phone | Unavailable | + + + Support + + + + + | Name | Relationship | Address | Phone | + + + + + | India Tilley | ECON | [address] | | | | | [place], [place] | | | | | [address] | | + + + + + | Yina La | ECON | Unknown | | + + + + + | Yina Peterson | ECON | Unknown | | + + + + + | Leatha Casillas | ECON | Unknown | | + + + + + Care Team Providers + +------+ + | Care Event Management Consultant Name | Role | Phone | [...] | [address] | [address], [place] | | | | | [place] | [address] | | | | | [address] | [address] | | | | | [phone] | | | +--------+ + + + [...] Referral packet received from Dora Bruno PA-C, [facility] to nephrology. Sent to Malik owens signed by Tatiana Rendon at 03/24/2017 1:05 PM PDTdocumented in this encounter Plan of Treatment Not on filedocumented as of this encounter Visit Diagnoses Not on filedocumented in this encounter"
--- OUTSIDE RECORDS SUMMARY | ~2019-09-08 | XMS | Encounter Summary ---
Demographics + + + | Address | [address] | | | [place] [address] | + + + | Home Phone [...] | Author | [facility] | | | and [place] | + + + | Organization | [facility] | | | and [place] | + + + | Address | Unknown | + + + | Phone | Unavailable | + + + Support + + + + + | Name | Relationship | Address | Phone | + + + + + | India Tilley | ECON | [address] | | | | | [place], [place] | | | | | [address] | | + + + + + | Yina La | ECON | Unknown | | + + + + + | Yina Peterson | ECON | Unknown | | + + + + + | Leatha Casillas | ECON | Unknown | | + + + + + Care Team Providers + +------+ + | Care Senior Marketing Manager Name | Role | Phone | + +------+ + PCP | Unavailable | + +------+ + Encounter Details +--------+ + + + + | Date | Type | Department | Care Team | Description | +--------+ + + + + | 05/12/ | Hospital | [facility] | | | | 2006 - | Encounter | [facility] | | | | | | CENTER [facility] [address] | | | | 05/13/ | | [place] | | | | 2006 | | [address] | | | | | | [phone] | | | +--------+ + + + [...]
--- OUTSIDE RECORDS SUMMARY | ~2019-09-08 | XMS | Encounter Summary ---
Demographics + + + | Address | [address] | | | [place] [address] | + + + | Home Phone | | + + + | Preferred Language | Unknown | + + + | Marital Status | Single | + + + | Scientology Affiliation | Unknown | + + + | Race | Unknown | + + + | Ethnic Group | Unknown | + + + Author + + + | Author | [facility] | | | and [place] | + + + | Organization | [facility] | | | and [place] | + + + | Address | Unknown | + + + | Phone | Unavailable | + + + Support + + + + + | Name | Relationship | Address | Phone | + + + + + | India Tilley | ECON | [address] | | | | | [place], [place] | | | | | [address] | | + + + + + | Yina La | ECON | Unknown | | + + + + + | Yina Peterson | ECON | Unknown | | + + + + + | Leatha Casillas | ECON | Unknown | | + + + + + Care Team Providers + +------+ + | Care Psych Rn Name | Role | Phone | [...] | | [address] | [place] | ([facility]) (Primary Dx) | | | | [place], [place] | [place], [place] | | | | | [address] | [address] | | | | | [phone] | | | +--------+ + + + [...] PSTLabs for upcoming nephrology [facility] signed by Celeste Butler RN at [...]
--- OUTSIDE RECORDS SUMMARY | ~2019-09-08 | XMS | Encounter Summary ---
Demographics + + + | Address | [address] | | | [place] [address] | + + + | Home Phone | | + + + | Preferred Language | Unknown | + + + | Marital Status | Single | + + + | Evangelical Affiliation | Unknown | + + + | Race | Unknown | + + + | Ethnic Group | Unknown | + + + Author + + + | Author | [facility] | | | and [place]al[place]it[place] | + + + | Organization | [facility] | | | and [place] | + + + | Address | Unknown | + + + | Phone | Unavailable | + + + Support + + + + + | Name | Relationship | Address | Phone | + + + + + | India Tilley | ECON | [address] | | | | | [place], [place] | | | | | [address] | | + + + + + | Yina La | ECON | Unknown | | + + + + + | Yina Peterson | ECON | Unknown | | + + + + + | Leatha Casillas | ECON | Unknown | | + + + + + Care Team Providers + +------+ + | Care Volunteer Manager Name | Role | Phone | [...] | Services | CKD | Gary, | Radiant | | | Required | | (chronic | MD Mayelin | [address] | | | | | kidney | [address] | [facility] | | | | | disease) | [facility] | [place], [place] | | | | | stage 5, GFR | [place], [place] | [address] | | | | | less than | [address] | Phone: | | | | | 15 ml/min | Phone: | [phone] | | | | | (HCC) Type | [phone] | Fax: | | | | | 2 DM with | Fax: | [phone] | | | | | CKD stage 5 | [phone] | | | | | | and [...] + + | 11/01/ | Hospital | [facility] | Gopi Muñoz | Hypoglycemia; | | 2018 - | Encounter | [facility] | M, DO [address] | Hypothermia, initial | | | | [address] | [address] | encounter; CKD | | 11/09/ | | [place] [address] | [place], [place] | (chronic kidney | | 2018 | | [phone] | [address] | disease) stage 5, | | | | | | GFR less than 15 | | | | | Rupal Laguna MD | ml/min ([facility]); | | | | | [address] | Essential | | | | | [place], [place] | hypertension; | | | | | [address] | Sepsis, due to | | | | | | unspecified organism | | | | | Nora Leo MD | (HCC); Uremia; | | | | | [address] [facility] | Controlled type 2 | | | | | [place] [address] | diabetes mellitus | | | | | [phone] | with stage 5 chronic | | | | | | kidney disease not | | | | | | on chronic dialysis, | | | | | | with long-term | | | | | | current use of | | | | | | insulin ([facility]); End | | | | | | stage renal disease | | | | | | ([facility]); Type 2 DM | | | | [...] dialysis | | | | | | ([facility]); Streptococcal | | | | | | bacteremia; Acute | | | | | | hemodialysis | | | | | | encounter ([facility]) | +--------+ + + + [...] might be differ ent from the original. [place] HOSPITALIST DISCHARGE SUMMARY Pt. Name/Age/: Ara [...] insulin glargine 100 units/mL injection (vial) aka: [facility] COU[facility]SE: Please refer to the H&P for full details and the most recent rounding rounding (progress) n ote. In short this is a 72-year-old woman, history of hypertension, diabetes mellitus type 2 on insulin, chronic kidney disease of stage V, CAD, who presented to [facility] after be ing found down in her [...] evaluation. At time of arrival to send [facility], patient was feeling much better and was [...] n/a DISPOSITION AND DISCHARGE INSTRUCTIONS: Follow-up Information [facility] On 11/10/2017. Why: 1:00pm Contact information: [address] [place] [id number] Follow up In 3 days. Francisca Womack PA-C In 3 days. Specialty: Internal Medicine Contact information: [address] [place] [address] Hemodialysis In 1 day. Contact information: Appointment at 1:30 PM Condition: Patient being discharged with condition improved and stable Diet: renal, carbohydrate controlled Greater than 30 minutes were spent on discharge and coordination of post-hospital care. Electronically signed by: Mayelin Vega MD, 11/09/2017 11:06 [facility] Portions of this chart may have been created with Retroficiency voice recognition software. Occasi onal wrong-word or sound-alike substitutions may have occurred due to the inherent mckeon itations of voice recognition software. Please read the chart carefully and recognize, using context, where these substitutions have occurred documented in this encounter Discharge Instructions AttachmentsThe following attachments cannot be sent through Care Everywhere.Balancing Calci um and Phosphorus, Kidney Disease ([place])Hemodialysis ([place])documented in this encounte r Medications at Time [...] + + +---------+ + + | Lancets [facility] | by Does not apply | | 0 | | | | | route. Use [address] [facility] | | | | 8 | [...] Muñoz, DO - 11/09/2017 6:18 PM PST [facility] [address] [place] [address] PROGRESS NOTE Pt. Name/Age/: Ara Tilley 72 y.o. 1945 Med. Record Number: [id number] Date of admission: 11/01/2017 NEPHROLOGY HPI - [...] 3. Complete 10 days total of AB's. [facility] Nora Headley MD - 11/09/2017 4:24 PM [...] and she agreed. Nikki was raised in [place] and in [place], [place]. She has two brothers and two sisters, and h ad 4 children of her own. Her oldest child, daughter, two months ago. Nikki is gri eving her loss and teared up while talking about her. Her other children live in [facility] and one son has been in [place] for 23 years. She hasn't seen him since he was arr ested and is hopeful she will get to see him next year, as he is schedule to be released at that time. 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 She has at least 4 ye ars post high school education and studied [employer]. In the years prior to [employer], she worked at [employer]. Nikki's mother had chronic kidney disease and [...] picking up and going to the [facility] [place] reservation in [place]. She must plan it out, and that feels antithetical to her nature. Ginger escamilla was present and attentive while she discussed her grief around losing her family member s and her lifestyle, offered supportive family court counsellor. Chayo Ramirez RN - 11/09/2017 10:00 AM Cam GONZALEZ arrived at [facility]'s room around 0800 to begin [...] 11/08/2017 6:50 PM PSTThis provider, Palliative Care LOCOMOTIVE PIPE FITTER, met briefly with "Nikki" Jose Raul rebecca [...] this note might be different from the [facility] [place] HOSPITALIST PROGRESS NOTE Patient: Ara Tilley : 1945: Age: 72 y.o. MedRec: [id number] Admission date: 11/01/2017 Hospital day # : [...] 100 mg 100 [facility] 100 mg at 11/07/17 1159 [NOV Hold] gabapentin (NEURONTIN) capsule 200 mg 200 mg Oral BID Rupal Laguna MD 2 00 mg at 11/07/172052 [NOV [...] mg/m L 0.25 mg [employer] Consultant Nroa Leo MD [NOV Hold] labetalol (NORMODYNE) tablet [...] nephrology recs -Nephro rec permacath needed for retirement dialysis -continue ferrlecit and Epogen 3. CAD- no signs of ACS, EKG RBBB, trop 0.03 at OSH -Continue aspirin, lipitor 4. Hypothyroidism -TSH WNL -Continue levothyroxine 5. HTN uncontrolled -Continue Labetalol and furosemide -Continue losartan 25 mg daily PPX: HSQ FEN: renal Mayelin Vega 11/08/2017 11:50 [facility] Nora Headley MD - 11/08/2017 10:06 [...] might be different f rom the original. [facility] [place] HOSPITALIST PROGRESS NOTE Patient: Ara Tilley : 1945: Age: 72 y.o. 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 CAD- no signs of ACS, EKG RBBB, trop 0.03 at OSH -Continue aspirin, lipitor 4. Hypothyroidism -TSH WNL -Continue levothyroxine 5. HTN uncontrolled -Continue Labetalol and furosemide -restart losartan 25 mg daily PPX: HSQ FEN: renal Mayelin Vega 11/07/2017 12:57 [facility] Cordell Palmer MD - 11/07/2017 9:43 AM PSTFormatting of this note might be different from the maynor rollins [facility] NEPHROLOGY progress note Patient: Ara Tilley [...] Darlin Moseley MD Electronically signed: 11/07/2017 9:43 [facility] NEPHROLOGY Olegario Keen M D - 11/06/2017 2:15 PM PST [facility] [place] HOSPITALIST PROGRESS NOTE Patient: Ara Tilley : 1945: Age: 72 y.o. MedRec: [id number] Admission date: 11/01/2017 Hospital day # : [...] Sub cutaneous Once per day on Wed oGpi Muñoz, DO 10,000 Units at 11/05/17 1015 [...] Procedure Component Value Units Date/Time Culture, Blood [[id number]] (Normal) Collected: 11/04/172121 Order Status: Completed Lab Status: Preliminary result Updated: 11/05/17930 Specimen: Blood from Line Culture No growth: Monitored continually by instrument for 5 days Culture, Blood [[id number]] (Normal) Collected: 11/04/17 2103 Order Status: Completed Lab Status: Preliminary result Updated: 11/05/17 0911 Specimen: Blood from Line Culture No growth: Monitored continually by instrument for 5 days Culture, Blood [[id number]] (Normal) Collected: 11/03/17 1506 Order Status: Completed [...] to determ ine if permacath needed for retirement dialysis CAD no signs of ACS, EKG [...] Oral BID PRN Olegario Peng 11/06/2017 14:15 [facility] Darlin Palmer M D - 11/06/2017 9:10 AM PST [facility] NEPHROLOGY progress note Patient: Ara Tilley [...] Continuous Infusions: Heparin Infusion 200 Units/hr (11/06/17 4817) PRN Meds:acetaminophen, albumin, albuterol, bisacodyl, Hypoglycemia Management [...] Darlin Moseley MD Electronically signed: 11/06/2017 9:11 [facility] NEPHROLOGY Olegario Keen M D - 11/05/2017 2:08 PM PST [facility] HOSPITALIST PROGRESS NOTE Patient: Ara Tilley : 1945: Age: 72 y.o. MedRec: [id number] Admission date: 11/01/2017 Hospital day # : [...] Procedure Component Value Units Date/Time Culture, Blood [[id number]] (Normal) Collected: 11/04/172 Order Status: Completed Lab Status: Preliminary result Updated: 11/05/17 0931 Specimen: Blood from Line Culture No growth: Monitored continually by instrument for 5 days Culture, Blood [[id number]] (Normal) Collected: 11/04/172102 Order Status: Completed Lab Status: Preliminary result Updated: 11/05/17 0911 Specimen: Blood from Line Culture No growth: Monitored continually by instrument for 5 days Culture, Blood [[id number]] (Normal) Collected: 11/03/17 1506 Order Status: Completed Lab Status: Preliminary result Updated: 11/04/17 0311 Specimen: Blood from Peripheral Blood Culture No growth: Monitored continually by instrument for 5 days Culture, Blood [[id number]] (Abnormal) Collected: 11/03/17 0812 Order Status: Completed Lab Status: Preliminary result Updated: 11/05/17 0751 Specimen: Blood from Arm, Left Culture Positive Blood Culture (AA) Staphylococcus coagulase negative Comment: Identification and susceptibility to follow. Probable contaminant Gram Stain Result Gram positive cocci in clusters Comment: 2 of 4 bottles positive Culture, Respiratory, Lower, Smear [[id number]] Collected: 11/03/17 0727 Order Status: Completed Lab [...] Oral BID PRN Olegario Peng 11/05/2017 14:08 [facility] Darlin Palmer M D - 11/05/2017 1:53 PM PST [facility] NEPHROLOGY progress note Patient: Ara Tilley [...] Darlin Moseley MD Electronically signed: 11/05/2017 13:53 [facility] NEPHROLOGY Gopi Mckenna , DO - 11/04/2017 6:53 PM PST [facility] [address] [place] [address] PROGRESS NOTE Pt. Name/Age/: Ara Tilley 72 y.o. 1945 Med. Record Number: [id number] Date of admission: 11/01/2017 NEPHROLOGY HPI - [...] to high Inpt case load here at [facility]. 2. probable pyelonephritis?--Day #3 Ceftriaxone, Day [...] for coverage of both organisms, Q 48H. [facility] Queenie Hlal RN - 11/04/2017 10:23 AM PSTPatient transferred from ICU into room 307. Oriented to room an d call light. Bed alarm set. Call light in place. Remains on 2L via nasal canula. Makes need s known. Amanda Keen MD - 11/04/2017 7:21 AM PSTFormatting of this note might be different from the origin al. [facility] [place] HOSPITALIST PROGRESS NOTE Patient: Ara Tilley : 1945: Age: 72 y.o. MedRec: [id number] Admission date: 11/01/2017 Hospital day # : [...] capsule 200 mg 200 mg Oral BID Ruapl Laguna MD 200 mg at 2250 heparin [...] Procedure Component Value Units Date/Time Culture, Blood [[id number]] (Normal) Collected: 11/03/17 1506 Order Status: Completed Lab Status: Preliminary result Updated: 11/04/17 0311 Specimen: Blood from Peripheral Blood Culture No growth: Monitored continually by instrument for 5 days Culture, Blood [[id number]] (Normal) Collected: 11/03/17 0812 Order Status: Completed Lab Status: Preliminary result Updated: 11/03/17 2041 Specimen: Blood from Arm, Left Culture No growth: Monitored continually by instrument for 5 days Culture, Respiratory, Lower, Smear [[id number]] Collected: 11/03/17 0727 Order Status: Completed Lab Status: Preliminary result Updated: 11/03/17 1028 Specimen: Respiratory from Sputum, expectorated Gram Stain Result 3+ White Blood Cells 2+ Epithelial cells 2+ Gram positive cocci 2+ Gram positive bacilli 1+ Hyphael elements Influenza A and B RNA, NAAT [[id number]] (Normal) Collected: 11/02/17 1050 Order Status: Completed Lab Status: Final result Updated: 11/02/17 1125 Specimen: Respiratory from Nares Influenza A PCR Negative Influenza B PCR Negative Culture, Urine [[id number]] Collected: 11/02/17 0740 Order Status: Completed Lab Status: Preliminary result Updated: 11/03/17 1013 Specimen: Urine Culture >100,000 CFU/ml Lactose Fermenting Gram Negative Bacilli Comment: Identification and susceptibility to follow. Culture, Blood [[id number]] (Normal) Collected: 11/02/17 0024 Order Status: Completed Lab Status: Preliminary result Updated: 11/02/17 1241 Specimen: Blood from Peripheral Blood Culture No growth: Monitored continually by instrument for 5 days Culture, Blood [[id number]] (Abnormal) Collected: 11/02/17 0019 Order Status: Completed [...] 15:14 by Edison Short. Narrative: Culture, MRSA [[id number]] Collected: 11/01/17 2146 Order Status: Completed Lab [...] in chains -Repeat UA (+), urine culture >501636 GNB lactose fermenting -Continue ceftriaxone started 11/02, [...] Q30 Min PRN Olegario Peng 11/04/2017 7:21 [facility] Nick Aguillon, RN - 0 11/04/2017 1:06 AM PSTDialysis treatment started and Arterial pressures running in the -400s , trouble shooting ineffective, arterial and venous lines switched, pressures now -50s. Shama sarabia is running appropriately at this moment, will continue monitoring. Nick Guallpa Gopi Mckenna, DO - 11/03/2017 11:20 AM PST [facility] [address] [place], [place] [id number] PROGRESS NOTE Pt. Name/Age/: Ara Tilley 72 y.o. 1945 Med. Record Number: [id number] Date of admission: 11/01/2017 NEPHROLOGY HPI - [...] anemia. 4. Encourage ambulation to minimize atelectasis. [facility] Olegario Keen MD - 11/03/2017 7:07 AM PST [facility] [place] HOSPITALIST PROGRESS NOTE Patient: Ara Tilley : 1945: Age: 72 y.o. MedRec: [id number] Admission date: 11/01/2017 Hospital day # : [...] mg 10 mg Rectal Daily PRN Rupal Laguan MD calcium carbonate (TUMS) chewable tablet 1,000 [...] PH UA 6.0 5.0 - 8.0 Specific [place] 1.010 1.001 - 1.030 PROTEIN UA 100 [...] Date/Time Influenza A and B RNA, NAAT [[id number]] (Normal) Collected: 11/02/17 1050 Order Status: Completed Lab Status: Final result Updated: 11/02/17 1125 Specimen: Respiratory from Nares Influenza A PCR Negative Influenza B PCR Negative Culture, Urine [[id number]] Collected: 11/02/17 0740 Order Status: Sent Lab Status: In process Updated: 11/02/17 0758 Specimen: Urine Culture, Blood [[id number]] (Normal) Collected: 11/02/17 0024 Order Status: Completed Lab Status: Preliminary result Updated: 11/02/17 1241 Specimen: Blood from Peripheral Blood Culture No growth: Monitored continually by instrument for 5 days Culture, Blood [[id number]] (Abnormal) Collected: 11/02/17 0019 Order Status: Completed Lab Status: Preliminary result Updated: 11/02/17 1515 Specimen: Blood from Peripheral Blood Culture Positive Blood Culture (AA) Gram Stain Result Gram positive cocci in chains Comment: One of four Blood Culture bottles POSITIVE. Critical Result called to and read b ack by Kristen Irving on 11/02/2017 at 15:14 by Edison Short. Narrative: Culture, MRSA [[id number]] Collected: 11/01/17 2146 Order Status: Sent Lab [...] Oral BID PRN Olegario Peng 11/03/2017 7:08 [facility] olph, Ta Restrepo, [facility] - 11/02/2017 3:43 PM PST PHARMACY SERVICES: [...] strength, and directions X Pharmacy list names: [facility] DIGITAL SOLUTION ARCHITECT (Prescription Monitoring Program) [facility] reported information X Care Everywhere [...] Prior to Admission Sig: Patient taking differently PRECISION STRUCTURAL METAL FITTER as: Atorvastatin 20mg 1 tab by mouth nightly 1 tab by mouth every morning Calcium- vitamin d 600-400mg 1 tab by mouth twice daily 1 tab by mouth every morning Duloxetine 30mg DR 1 capsule by mouth daily Patient has not started this medication PRECISION STRUCTURAL METAL FITTER, cortés s not filled at pharmacy [id number] 200mg by mouth twice daily 200mg by mouth every morning labetalol 200mg 1 tab by mouth twice daily Patient has not started this medication PRECISION STRUCTURAL METAL FITTER, has not filled at pharmacy Best possible PRECISION STRUCTURAL METAL FITTER medication list after pharmacy review: Prior to [...] performed and electronically signed by Puja Whitman, Nuclear Licensing Engineer 2017 15:31 Electronically signed by: Ta Ronquillo [facility] 11/02/2017 15:40 Olegario Keen MD - 11/02/2017 7:21 AM PST [facility] [place] HOSPITALIST PROGRESS NOTE Patient: Ara Tilley : 1945: Age: 72 y.o. MedRec: [id number] Admission date: 11/01/2017 Hospital day # : [...] mg 40 mg Oral QAM AC Rupal Lagnua MD 40 mg at 11/02/17 0632 polyethylene [...] Procedure Component Value Units Date/Time Culture, Blood [[id number]] Collected: 11/02/1723 Order Status: Sent Lab Status: In process Updated: 11/02/1732 Specimen: Blood from Peripheral Blood Culture, Blood [[id number]] Collected: 11/02/1718 Order Status: Sent Lab Status: In process Updated: 11/02/1732 Specimen: Blood from Peripheral Blood Culture, MRSA [[id number]] Collected: 11/01/172145 Order Status: Sent Lab Status: [...] 0.9% Intravenous Continuous Olegario Peng 11/02/2017 7:38 [facility] documented in this e ncounter Plan [...] | | | | than 15 ml/min ([facility]) | | | | | | Type 2 DM with CKD | | | | | | stage 5 and | | | | | | hypertension ([facility]) | | | | | | Acute hemodialysis | | | | | | encounter ([facility]) | | + + +--------+ [...] | | PERMACATH | | PST | ([facility]) | | + +--------+ + [...] [address] | [place] | [phone] | | [facility] | | [address] | | | - LABORATORY | | [...] [address] | [place] | [phone] | | [facility] | | [address] | | | - LABORATORY | | [...] [address] | [place] | [phone] | | [facility] | | [address] | | | - LABORATORY | | [...] (H) | 7 - 18 mg/dL | [facility] | | | | | | [facility] | | | | | | MEDICAL | | | | | | CENTER - | | | | | | LABORATORY | | + + + + + + | Creatinine | 2.99 (H) | 0.60 - 1.30 | [place] | | | | | mg/dL | [facility] | | | | | | MEDICAL | | | | | | CENTER - | | | | | | LABORATORY | | + + + + + + | eGFR if not | 15 (L)Comment: | >=60 | [place] | | | | GLOMERULAR FILTRATION | mL/min/1.73m2 | [facility] | | | [facility] | RATE,ESTIMATED | | MEDICAL | | | | mL/min/1.08b8Szii than | | CENTER - | | [...] | [facility] | [address] | [place] | [phone] | | [facility] | | [address] | | | - LABORATORY | | [...] + | [facility] | [address] | [place] | [phone] | | [facility] | | [address] | | | - LABORATORY | | [...] | | POC | | | [facility]ela [facility] | | | | | | [...] [address] | [place] | [phone] | | [facility] | | [address] | | | - LABORATORY | | [...] Urine | appended report. These | | [facility] | | | | results have been [...] [address] | [place] | [phone] | | [facility] | | [address] | | | - LABORATORY | | [...] [address] | [place] | [phone] | | [facility] | | [address] | | | - LABORATORY | | [...] [address] | [place] | [phone] | | [facility] | | [address] | | | - LABORATORY | | [...] + | [facility] | [address] | [place] | [phone] | | [facility] | | [address] | | | - LABORATORY | | [...] mL/min/1.73m2 | [facility] | | | [place] | RATE,ESTIMATED | | MEDICAL | | | | mL/min/1.53a1Lvgp than | | CENTER - | | [...] ST. | [address] | [place], [place] | [phone] | | [facility] | | [address] | | | - LABORATORY | | [...] [address] | [place] | [phone] | | [facility] | | [address] | | | - LABORATORY | | [...] [address] | [place] | [phone] | | [facility] | | [address] | | | - LABORATORY | | [...] + | [facility] | [address] | [place] | [phone] | | [facility] | | [address] | | | - LABORATORY | | [...] [address] | [place] | [phone] | | [facility] | | [address] | | | - LABORATORY | | [...] [address] | [place] | [phone] | | [facility] | | [address] | | | - LABORATORY | | [...] + | [facility] | [address] | [place] | [phone] | | [facility] | | [address] | | | - [...] [address] | [place] | [phone] | | [facility] | | [address] | | | - LABORATORY | | [...] [address] | [place] | [phone] | | [facility] | | [address] | | | - LABORATORY | | [...] [facility] | | | [place] | RATE,ESTIMATED | | MEDICAL | | | | mL/min/1.51s8Iood than | | CENTER - | | [...] + | [facility] | [address] | [place] | [phone] | | [facility] | | [address] | | | - LABORATORY | | [...] [address] | [place] | [phone] | | [facility] | | [address] | | | - LABORATORY | | [...] ST. | [address] | [place], [place] | [phone] | | [facility] | | [address] | | | - LABORATORY | | [...] + | [facility] | [address] | [place] | [phone] | | [facility] | | [address] | | | - LABORATORY | | [...] + | [facility] | [address] | [place] | [phone] | | [facility] | | [address] | | | - LABORATORY | | [...] [address] | [place] | [phone] | | [facility] | | [address] | | | - LABORATORY | | [...] [address] | [place] | [phone] | | [facility] | | [address] | | | - LABORATORY | | [...] [address] | [place] | [phone] | | [facility] | | [address] | | | - LABORATORY | | [...] mL/min/1.73m2 | [facility] | | | CAMEROONIAN | RATE,ESTIMATED | | MEDICAL | | | | mL/min/1.70c9Yerm than | | CENTER - | | [...] + | [facility] | [address] | [place] | [phone] | | [facility] | | [address] | | | - LABORATORY | | [...] ST. | [address] | [place], [place] | [phone] | | [facility] | | [address] | | | - LABORATORY | | [...] + | [facility] | [address] | [place] | [phone] | | [facility] | | [address] | | | - LABORATORY | | [...] [address] | [place] | [phone] | | [facility] | | [address] | | | - LABORATORY | | [...] Demographics Patient Name ANDRES | | | [facility] Room Number 307 E[address] | | | Patient Number [id number] Date of Study | | | 11/05/2017 Visit Number [id number] | | | Referring Physician AUDI ANDRADE Number Date of | | | 1945 Wardrobe Manager Jasbir Gatica | | | Age 72 year(s) Interpreting | | | GENIE WARREN | | | Edge Finisher CHAYO | | | SHERRIE RADFORD, | | | | | | Gender Female Nurse | | | Stress Dictating Machine Transcriber | | | Procedure Type of Study [...] valve cusps without reducedexcursion.Tricuspid | | | LxhoqEoqv-te-bwxdoqoq tricuspid regurgitation suggestive of a mildly | [...] | | | EF | | | Rvcgqpynr07% Left Ventricle Diastolic Dimension: 4.77 cm Septum [...] |excursion. | | |Tricuspid Valve | | |Yyvu-ux-kroxemze tricuspid regurgitation suggestive of a mildly elevated [...] Volume: 60.67 ml | | | EF Ojudtenwm66% | | | | | | Left [...] Number 307 | | EMILE Patient Number [id number] Date of Study 11/05/2017 Visit Number | | [id number] Referring Physician AUDI ANDRADE | | Number Date of 1945 Wardrobe Manager Jasbir Gatica Age | | 72 year(s) Interpreting GENIE WARREN | | Edge Finisher CHAYO | | SHERRIE RADFORD MD Gender [...] aortic valve cusps | | without reducedexcursion.Tricuspid MssflOfig-lq-zsundqzi tricuspid regurgitation | | suggestive of a [...] LA Volume: 60.67 ml | | EF Leipbhzim44% Left Ventricle Diastolic Dimension: 4.77 | | [...] reduced | |excursion. | |Tricuspid Valve | |Bshq-lq-jsykfcwj tricuspid regurgitation suggestive of a mildly elevated [...] LA Volume: 60.67 ml | | EF Qwrjkugfs37% | | | | Left Ventricle | [...] + | [facility] | [address] | [place] | [phone] | | [facility] | | [address] | | | - LABORATORY | | [...] + | [facility] | [address] | [place] | [phone] | | [facility] | | [address] | | | - LABORATORY | | [...] [address] | [place] | [phone] | | [facility] | | [address] | | | - LABORATORY | | [...] [address] | [place] | [phone] | | [facility] | | [address] | | | - LABORATORY | | [...] [address] | [place] | [phone] | | [facility] | | [address] | | | - LABORATORY | | [...] mL/min/1.73m2 | [facility] | | | CAMEROONIAN | RATE,ESTIMATED | | MEDICAL | | | | mL/min/1.40k4Kscn than | | CENTER - | | [...] [address] | [place] | [phone] | | [facility] | | [address] | | | - LABORATORY | | [...] [address] | [place] | [phone] | | [facility] | | [address] | | | - LABORATORY | | [...] + | [facility] | [address] | [place] | [phone] | | [facility] | | [address] | | | - LABORATORY | | [...] [address] | [place] | [phone] | | [facility] | | [address] | | | - LABORATORY | | [...] [address] | [place] | [phone] | | [facility] | | [address] | | | - LABORATORY | | [...] | [facility] | [address] | [place] | [phone] | | [facility] | | [address] | | | - LABORATORY | | [...] + | [facility] | [address] | [place] | [phone] | | [facility] | | [address] | | | - LABORATORY | | [...] [address] | [place] | [phone] | | [facility] | | [address] | | | - LABORATORY | | [...] + | [facility] | [address] | [place] | [phone] | | [facility] | | [address] | | | - LABORATORY | | [...] [address] | [place] | [phone] | | [facility] | | [address] | | | - LABORATORY | | [...] mL/min/1.73m2 | [facility] | | | CAMEROONIAN | RATE,ESTIMATED | | MEDICAL | | | | mL/min/1.13k5Eoxc than | | CENTER - | | [...] [address] | [place] | [phone] | | [facility] | | [address] | | | - LABORATORY | | [...] [address] | [place] | [phone] | | [facility] | | [address] | | | - LABORATORY | | [...] | [facility] | [address] | [place] | [phone] | | [facility] | | [address] | | | - LABORATORY | | [...] + + | Performing | Address | City/State/[facility] | Phone Number | | Organization | | | | + + + + + | [facility] | [address] | [place] | [phone] | | [facility] | | [address] | | | - LABORATORY | | [address] | [place] | [phone] | | [facility] | | [address] | | | - LABORATORY | | [...] [address] | [place] | [phone] | | [facility] | | [address] | | | - LABORATORY | | [...] + | [facility] | [address] | [place] | [phone] | | [facility] | | [address] | | | - LABORATORY | | [address] | [place] | [phone] | | [facility] | | [address] | | | - LABORATORY | | [...] + | [facility] | [address] | [place] | [phone] | | [facility] | | [address] | | | - LABORATORY | | [...] [address] | [place] | [phone] | | [facility] | | [address] | | | - LABORATORY | | [...] + | [facility] | [address] | [place] | [phone] | | [facility] | | [address] | | | - LABORATORY | | [...] | | Result | | | [facility] | | | | | | MEDICAL [...] + | [facility] | [address] | [place] | [phone] | | [facility] | | [address] | | | - LABORATORY | | [address] | [place] | [phone] | | [facility] | | [address] | | | - LABORATORY | | [...] + + | Performed at: 01 - [facility] [address], | REFERENCE LAB | | [place], [place] [id number] Calendering Machine Operator: Ernie Lee MD, Phone: | [facility] | | [phone] | | + + + + + + + + | Performing | Address | City/State/Zipcode | Phone Number | | Organization | | | | + + + + + | REFERENCE LAB | [address] | [place] [address] | [phone] | | [facility] | [address] | [place] | [phone] | | [facility] | | [address] | | | - LABORATORY | | [...] [address] | [place] | [phone] | | [facility] | | [address] | | | - LABORATORY | | [...] [facility] | | | | | | [facility] | | | | | | MEDICAL | | | | | | CENTER - | | | | | | LABORATORY | | + + + + + + | RBC | 2.97 (L) | 3.70 - 5.20 | [facility] | | | | | M/uL | [facility] | | | | | | [...] + | [facility] | [address] | [place] | [phone] | | [facility] | | [address] | | | - LABORATORY | | [...] test | | | | | | ([id number]). | | | | + + + + + + + + | Specimen | + + | Blood | + + + + + | Narrative | Performed At | + + + | Performed at: 01 - [facility] [place] [address], | REFERENCE LAB | | [place], [place] [id number] Calendering Machine Operator: Ernie Lee MD, Phone: | [facility] | | [phone] | | + + + + + + + + | Performing | Address | City/State/Zipcode | Phone Number | | Organization | | | | + + + + + | REFERENCE LAB | [address] | [place] [address] | [phone] | | [facility] | Drive [...] mL/min/1.73m2 | [facility] | | | CAMEROONIAN | RATE,ESTIMATED | | MEDICAL | | | | mL/min/1.16y4Yfmf than | | CENTER - | | [address] | [place] | [phone] | | [facility] | | [address] | | | - LABORATORY | | [...] [address] | [place] | [phone] | | [facility] | | [address] | | | - LABORATORY | | [...] + | [facility] | [address] | [place] | [phone] | | [facility] | | [address] | | | - LABORATORY | | [...] [address] | [place] | [phone] | | [facility] | | [address] | | | - LABORATORY | | [...] + | [facility] | [address] | [place] | [phone] | | [facility] | | [address] | | | - LABORATORY | | [...] [address] | [place] | [phone] | | [facility] | | [address] | | | - LABORATORY | | [...] [address] | [place] | [phone] | | [facility] | | [address] | | | - LABORATORY | | [...] [address] | [place] | [phone] | | [facility] | | [address] | | | - LABORATORY | | [...] | | | POC | | | [facility] | | | | | | [...] + | [facility] | [address] | [place] | [phone] | | [facility] | | [address] | | | - LABORATORY | | [...] [address] | [place] | [phone] | | [facility] | | [address] | | | - LABORATORY | | [...] [address] | [place] | [phone] | | [facility] | | [address] | | | - LABORATORY | | [...] [address] | [place] | [phone] | | [facility] | | [address] | | | - LABORATORY | | [...] [address] | [place] | [phone] | | [facility] | | [address] | | | - LABORATORY | | [...] [address] | [place] | [phone] | | [facility] | | [address] | | | - LABORATORY | | [...] [address] | [place] | [phone] | | [facility] | | [address] | | | - LABORATORY | | [...] + | [facility] | [address] | [place] | [phone] | | [facility] | | [address] | | | - LABORATORY | | [...] [address] | [place] | [phone] | | [facility] | | [address] | | | - LABORATORY | | [...] [address] | [place] | [phone] | | [facility] | | [address] | | | - LABORATORY | | [...] [address] | [place] | [phone] | | [facility] | | [address] | | | - LABORATORY | | [...] + | [facility] | [address] | [place] | [phone] | | [facility] | | [address] | | | - LABORATORY | | [...] mL/min/1.73m2 | [facility] | | | CAMEROONIAN | RATE,ESTIMATED | | MEDICAL | | | | mL/min/1.40t7Mgzx than | | CENTER - | | [...] + | [facility] | [address] | [place], [place] | [phone] | | [facility] | | [address] | | | - LABORATORY | | [...] [address] | [place] | [phone] | | [facility] | | [address] | | | - LABORATORY | | [...] - 1.030 | [facility] | | | [place] | | | [facility] | | [...] [address] | [place] | [phone] | | [facility] | | [address] | | | - LABORATORY | | [...] | | | | | | [employer] | | | | | [...] + + | Performing | Address | City/State/[facility]coar | Phone Number | | Organization | | | | + + + + + | [facility] | [address] | [place] | [phone] | | [facility] | | [address] | | | - LABORATORY | | [...] [address] | [place] | [phone] | | [facility] | | [address] | | | - LABORATORY | | [...] [address] | [place] | [phone] | | [facility] | | [address] | | | - LABORATORY | | [...] [address] | [place] | [phone] | | [facility] | | [address] | | | - LABORATORY | | [...] | [facility] | [address] | [place] | [phone] | | [facility] | | [address] | | | - LABORATORY | | [...] ST. | [address] | [place] | [phone] | | [facility] | | [address] | | | - LABORATORY | | [...] + | [facility] | [address] | [place] | [phone] | | [facility] | | [address] | | | - LABORATORY | | [...] [address] | [place] | [phone] | | [facility] | | [address] | | | - LABORATORY | | [...] | | | | | | [employer] | | | | | [...] + + | Performing | Address | City/State/[facility]ode | Phone Number | | Organization | | | | + + + + + | [facility] | [address] | [place] | [phone] | | [facility] | | [address] | | | - LABORATORY | | [...] At | + + + | | [facility] | | | [facility] | | | [facility] | | | - LABORATORY [...] [address] | [place] | [phone] | | [facility] | | [address] | | | - LABORATORY | | [...] [address] | [place] | [phone] | | [facility] | | [address] | | | - LABORATORY | | [...] mL/min/1.73m2 | [facility] | | | CAMEROONIAN | RATE,ESTIMATED | | MEDICAL | | | | mL/min/1.71t6Qyoe than | | CENTER - | | [...] [address] | [place] | [phone] | | [facility] | | [address] | | | - LABORATORY | | [...] [address] | [place] | [phone] | | [facility] | | [address] | | | - LABORATORY | | [...] [address] | [place] | [phone] | | [facility] | | [address] | | | - [...] [address] | [place] | [phone] | | [facility] | | [address] | | | - LABORATORY | | [...] for comparison only - no result from [facility]. | [facility] | + + + [...] for comparison only - no result from [place]. | [facility] | + + + [...] for comparison only - no result from [place]. 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 If | | | [...] | | | | | | use [place] 10/325 if ordered. If | | | [...] | | | | | | | 6269-3880 Use NIGHT DOSE for | | | | | | | doses scheduled: HS, 3AM, | | | | | | | Nighttime 1703-0885, | | | | | | + [...] scheduled: AC, | | | NPO, Daytime 8587-3958 Use NIGHT | | | DOSE for doses scheduled: | | | HS, 3AM, Nighttime 5520-9581, | | + +---+ | | | [...] | | | DAILY, First dose on [facility] 11/04/17 | | AM PST | [...]
--- OUTSIDE RECORDS SUMMARY | ~2019-09-08 | XMS | Encounter Summary ---
Demographics + + + | Address | [address] | | | [place] [address] | + + + | Home Phone | | + + + | Preferred Language | Unknown | + + + | Marital Status | Single | + + + | Yazdanism Affiliation | Unknown | + + + | Race | Unknown | + + + | Ethnic Group | Unknown | + + + Author + + + | Author | [facility] | | | and [place] | + + + | Organization | [facility] | | | and [place] | + + + | Address | Unknown | + + + | Phone | Unavailable | + + + Support + + + + + | Name | Relationship | Address | Phone | + + + + + | India Tilley | ECON | [address] | | | | | [place], [place] | | | | | [address] | | + + + + + | Yina La | ECON | Unknown | | + + + + + | Yina Peterson | ECON | Unknown | | + + + + + | Leatha Casillas | ECON | Unknown | | + + + + + Care Team Providers + +------+ + | Care Medical Physicist Name | Role | Phone | + [...] + + | 07/26/ | Telephone | [facility] | Francisca Robert, | Surgery Appointment | | 2019 | | VASCULAR SURGERY | RN | | | | | [address] | | | | | | [place] | | | | | | [address] | | | | | | [phone] | | | +--------+ + + + [...]
--- OUTSIDE RECORDS SUMMARY | ~2019-09-08 | XMS | Encounter Summary ---
Demographics + + + | Address | [address] | | | [place] [address] | + + + | Home Phone | | + + + | Preferred Language | Unknown | + + + | Marital Status | Single | + + + | Gnosticism Affiliation | Unknown | + + + | Race | Unknown | + + + | Ethnic Group | Unknown | + + + Author + + + | Author | [facility] | | | and [place] | + + + | Organization | [facility] | | | and [place] | + + + | Address | Unknown | + + + | Phone | Unavailable | + + + Support + + + + + | Name | Relationship | Address | Phone | + + + + + | India Tilley | ECON | [address] | | | | | [place], [place] | | | | | [address] | | + + + + + | Yina La | ECON | Unknown | | + + + + + | Yina Peterson | ECON | Unknown | | + + + + + | Leatha Casillas | ECON | Unknown | | + + + + + Care Team Providers + +------+ + | Care Private Equity Analyst Name | Role | Phone | + +------+ + PCP | Unavailable | + +------+ + Reason for Visit + + + | Reason | Comments | + + + | Hospital Follow-up | | + + + Encounter Details +--------+ + + + + | Date | Type | Department | Care Team | Description | +--------+ + + + + | 04/03/ | Telephone | [facility] | Michelle Lopez | Hospital Follow-up | | 2019 | | Internal Medicine | DO [place] [address] | | | | | Hospitalists [address] | | | | | [address] [place] | [place] [address] | | | | | [address] | [phone] | | | | | [phone] | | | +--------+ + + + [...]
--- OUTSIDE RECORDS SUMMARY | ~2019-09-08 | XMS | Encounter Summary ---
Demographics + + + | Address | [address] | | | [place] [address] | + + + | Home Phone | | + + + | Preferred Language | Unknown | + + + | Marital Status | Single | + + + | Lutheran Affiliation | Unknown | + + + | Race | Unknown | + + + | Ethnic Group | Unknown | + + + Author + + + | Author | [facility] | | | and [place] | + + + | Organization | [facility] | | | and [place] | + + + | Address | Unknown | + + + | Phone | Unavailable | + + + Support + + + + + | Name | Relationship | Address | Phone | + + + + + | India Tilley | ECON | [address] | | | | | [place], [place] | | | | | [address] | | + + + + + | Yina La | ECON | Unknown | | + + + + + | Yina Peterson | ECON | Unknown | | + + + + + | Leatha Casillas | ECON | Unknown | | + + + + + Care Team Providers + +------+ + | Care Webbing Supervisor Name | Role | Phone | + +------+ + | Renato Pierson DRY CHAIN OFFBEARER | PCP | | + +------+ + [...] | | | disease | [address] | [place] | | | | | (HCC) | [place] | [address] [facility] | | | | | Procedures | [address] | [place], [place] | | | | | [place] ESRD | [place], | [address] Phone: | | | | | RELATED SVC | [place] | [phone] | | | | | MONTHLY | [address] | Fax: | | | | | 20&/> YR OLD | Phone: | [phone] | | | | | 4/> VISITS | [phone] | | | | | | | Fax: | | | | | | | [phone] | | + +--------+ + + + + Encounter Details +--------+ + + + + | Date | Type | Department | Care Team | Description | +--------+ + + + + | 07/10/ | Off-Site | [facility] | Gopi Muñoz | ESRD (end stage | | 2019 | Visit | NEPHROLOGY [address] | M, DO [address] | renal disease) on | | | | [address] | [place] | dialysis (HCC) | | | | [place] | [place] | (Primary Dx) | | | | [address] | [address] | | | | | [phone] | | | +--------+ + + + [...]
--- OUTSIDE RECORDS SUMMARY | ~2019-09-08 | XMS | Encounter Summary ---
Demographics + + + | Address | [address] | | | [place] [address] | + + + | Home Phone | | + + + | Preferred Language | Unknown | + + + | Marital Status | Single | + + + | Confucianism Affiliation | Unknown | + + + | Race | Unknown | + + + | Ethnic Group | Unknown | + + + Author + + + | Author | [facility] | | | and [place] | + + + | Organization | [facility] | | | and [place] | + + + | Address | Unknown | + + + | Phone | Unavailable | + + + Support + + + + + | Name | Relationship | Address | Phone | + + + + + | India Tilley | ECON | [address] | | | | | [place], [place] | | | | | [address] | | + + + + + | Yina La | ECON | Unknown | | + + + + + | Yina Peterson | ECON | Unknown | | + + + + + | Leatha Casillas | ECON | Unknown | | + + + + + Care Team Providers + +------+ + | Care Research Engineer Marine Equipment Name | Role | Phone | + +------+ + PCP | Unavailable | + +------+ + Encounter Details +--------+ + + + + | Date | Type | Department | Care Team | Description | +--------+ + + + + | 07/23/ | Hospital | [facility] | Patricia, | | | 2006 - | Encounter | [facility] | Venkatesh Forte MD [address] | | | | [address] | [facility] | | | 08/12/ | | [place] | [place] [address] | | | 2006 | | [address] | [phone] | | | | | [phone] | | | +--------+ + + + [...]
--- OUTSIDE RECORDS SUMMARY | ~2019-09-08 | XMS | Encounter Summary ---
Demographics + + + | Address | [address] | | | [place] [address] | + + + | Home Phone | | + + + | Preferred Language | Unknown | + + + | Marital Status | Single | + + + | Taoism Affiliation | Unknown | + + + | Race | Unknown | + + + | Ethnic Group | Unknown | + + + Author + + + | Author | [facility] | | | and [place] | + + + | Organization | [facility] | | | and [place] | + + + | Address | Unknown | + + + | Phone | Unavailable | + + + Support + + + + + | Name | Relationship | Address | Phone | + + + + + | India Tilley | ECON | [address] | | | | | [place], [place] | | | | | [address] | | + + + + + | Yina La | ECON | Unknown | | + + + + + | Yina Peterson | ECON | Unknown | | + + + + + | Leatha Casillas | ECON | Unknown | | + + + + + Care Team Providers + +------+ + | Care Leveling Machine Operator Name | Role | Phone | + +------+ + | Renato Pierson | PCP | | + +------+ + Encounter Details +--------+ + + + + | Date | Type | Department | Care Team | Description | +--------+ + + + + | 04/28/ | Orders Only | [facility] | Gopi Muñoz | | | 2019 | | NEPHROLOGY [address] | M, DO [address] | | | | | [address] | [place] | | | | | [place], [place] | [place] | | | | | [address] | [address] | | | | | [phone] | | | +--------+ + + + [...]
--- OUTSIDE RECORDS SUMMARY | ~2019-09-08 | XMS | Encounter Summary ---
Demographics + + + | Address | [address] | | | [place] [address] | + + + | Home Phone [...] | Author | [facility] | | | and [place] | + + + | Organization | [facility] | | | and [place] | + + + | Address | Unknown | + + + | Phone | Unavailable | + + + Support + + + + + | Name | Relationship | Address | Phone | + + + + + | India Tilley | ECON | [id number] | | | | | [place], [place] | | | | | [address] | | + + + + + | Yina La | ECON | Unknown | | + + + + + | Yina Peterson | ECON | Unknown | | + + + + + | Leatha Casillas | ECON | Unknown | | + + + + + Care Team Providers + +------+ + | Care Manufacturing Supervisor Name | Role | Phone | [...] | | | | | | | ([facility]) | | | +--------+--------+ + + + + Encounter Details +--------+ + + + + | Date | Type | Department | Care Team | Description | +--------+ + + + + | 12/04/ | Anesthesia | [facility] | Petros Garrido | | | 2019 | Event | MED CTR OR INTRA OP | MD Zuleima [address] | | | | [address] | [address] [place] | | | | | [place], [place] | [place] [address] | | | | | [address] | [phone] | | | | | [phone] | | | +--------+ + + + [...] +----+---+ + + | | 1 | Estelline | | | | 6 | 43-degrees | | | | 3 | | | | | 1 | | | +----+---+ + + | | 1 | First | | | | 6 | Inc/Proc St | | | | 3 | | | | | 4 | | | +----+---+ + + | | 1 | [place] off | | | | 6 | [...] 12/09/18 182 by | | eral | rgao-dus-dxavtd catheter system; | Priti Burleson RN | [...] GARRIDO | | | Electronically Signed by: Pertos Garrido MD | | | ESig date/time: [...] | | | | | Breath, Starting Elwood 12/04/18 at | | PM PDT | | | | | 1701, Anesthesia Intra-op | | | | | | + +--------+ +---------+------+------+ +---+---+ | | | +---+---+ + +-------+ +-----+---+---+ | ceFAZolin (ANCEF, KEFZOL) | Given | 12/05/19 | 1 g | | | | injection Intravenous, PRN, | | 19 4:20 | | | | | Starting [place]wood 12/04/18 at 1620, | | PM PDT [...] 4:04 | | | | | Starting [place]wood 12/04/18 at 1604, | | PM PDT [...] | | | | | PRN, Starting [place] 12/04/18 at | | PM PDT | [...] 4:14 | | | | | Starting [place] 12/04/18 at 1614, | | PM PDT | | | | | Anesthesia Intra-op | | | | | | + +-------+ +--------+---+---+ +---+---+ | | | +---+---+ documented in this encounter"
--- OUTSIDE RECORDS SUMMARY | ~2019-09-08 | XMS | Encounter Summary ---
Demographics + + + | Address | [address] | | | [place] [address] | + + + | Home Phone [...] + + + | Author | [facility] | | | and [place]it[place] | + + + | Organization | [facility] | | | and [place] | + + + | Address | Unknown | + + + | Phone | Unavailable | + + + Support + + + + + | Name | Relationship | Address | Phone | + + + + + | India Tilley | ECON | [address] | | | | | [place], [place] | | | | | [address] | | + + + + + | Yina La | ECON | Unknown | | + + + + + | Yina Peterson | ECON | Unknown | | + + + + + | Leatha Casillas | ECON | Unknown | | + + + + + Care Team Providers + +------+ + | Care Fruit I Farmworker Name | Role | Phone | + [...] | renal | PA-C 2229 | [address] | | | | | disease | [address] | [place], [place] | | | | | ([facility]AC, LOCATED [facility]IN [facility]) | [place] | [address] [facility] | | | | | Procedures | [address] | [facility] [place] | | | | | [place] ESRD | [facility] | [address] Phone: | | | | | RELATED [place] | [place] | [phone] | | | | | MONTHLY | [address] | Fax: | | | | | 20&/> YR OLD | Phone: | [phone] | | | | | 4/> VISITS | [phone] | | | | | | | Fax: | | | | | | | [phone] | | + +--------+ + + + + Encounter Details +--------+ + + + + | Date | Type | Department | Care Team | Description | +--------+ + + + + | 10/31/ | Off-Site | [facility] | Gopi Muñoz | End stage renal | | 2019 | Visit | NEPHROLOGY [address] | M, DO [address] | disease (HCC) | | | | [address] | [place] | (Primary Dx) | | | | [place] | [place], [place] | | | | | [address] | [address] | | | | | [phone] | | | +--------+ + + + [...]
--- OUTSIDE RECORDS SUMMARY | ~2019-09-08 | XMS | Encounter Summary ---
Demographics + + + | Address | [address] | | | [place] [address] | + + + | Home Phone [...] Author | [facility] | | | and [place] | + + + | Organization | [facility] | | | and [place] | + + + | Address | Unknown | + + + | Phone | Unavailable | + + + Support + + + + + | Name | Relationship | Address | Phone | + + + + + | India Tilley | ECON | [address] | | | | | [place], [place] | | | | | [address] | | + + + + + | Yina La | ECON | Unknown | | + + + + + | Yina Peterson | ECON | Unknown | | + + + + + | Leatha Casillas | ECON | Unknown | | + + + + + Care Team Providers + +------+ + | Care Business Intern Name | Role | Phone | + +------+ + PCP | Unavailable | + +------+ + Encounter Details +--------+ + + + + | Date | Type | Department | Care Team | Description | +--------+ + + + + | 11/08/ | [facility] | [facility] | Provider, | | | 2018 | Exam | MED CTR EXTERNAL | MD [address] | | | | | IMAGING | [address] | | | | | [phone] | [place] [address] | | +--------+ + + + + [...] this encounter Results XR Chest 2 VW (02/10/2007 8:55 PM PDT) + + | Specimen | + + | | + + + + + | Narrative | Performed At | + + + | External films for comparison only - no result from [place]. | [facility] | + + + + +---------+ + + | Performing | Address | City/State/Zipcode | Phone Number | | Organization | | | | + +---------+ + + | [facility] | | | | + +---------+ + + documented in this encounter Visit Diagnoses Not on filedocumented in this encounter"
--- OUTSIDE RECORDS SUMMARY | ~2019-09-08 | XMS | Encounter Summary ---
Demographics + + + | Address | [address] | | | [place] [address] | + + + | Home Phone [...] Author | [facility] | | | and [place] | + + + | Organization | [facility] | | | and [place] | + + + | Address | Unknown | + + + | Phone | Unavailable | + + + Support + + + + + | Name | Relationship | Address | Phone | + + + + + | India Tilley | ECON | [address] | | | | | [place], [place] | | | | | [address] | | + + + + + | Yina La | ECON | Unknown | | + + + + + | Yina Peterson | ECON | Unknown | | + + + + + | Leatha Casillas | ECON | Unknown | | + + + + + Care Team Providers + +------+ + | Care Quenching Machine Operator Name | Role | Phone [...] | ([facility]) | | | +--------+--------+ + + + + Encounter Details +--------+---------+ + + + | Date | Type | Department | Care Team | Description | +--------+---------+ + + + | 12/04/ | Surgery | [facility] | Scott Koroma, | ORIF HIP | | 2019 | | MED CTR OR INTRA OP | MD [address] | W/CANNULATED SCREWS | | | | [address] | [place] | | | | | [place] | [address] | | | | | [address] | | | | | | [phone] | | | +--------+---------+ + + + [...] Electronically signed by: Scott Koroma, 12/20/2018 12:05 [facility] Scott Koroma MD at 05/2019 12:10 PM PDTdocumented in this encounter Discharge Instructions Instructions Gopi Muñoz DO - . Please keep your old HD appt. at [facility] for 12/12/2018. 2. Call our Office if you change your mind and wish to go to [facility] , for further R ehab. 3. Home [...] 4,000 Units by | | 0 | /30/20 | | | 4000 units TABS | [...] might be d ifferent from the original. [facility] [address] [place] [address] PROGRESS NOTE Pt. Name/Age/: Estefani Tilley 73 y.o. 1945 Med. Record Number: [id number] Date of admission: 12/04/2018 NEPHROLOGY HPI - [...] Intake/Output Summary (Last 24 hours) at 12/08/18 220 Last data filed at 12/08/18 1818 Gross [...] HD tomorrow and assess for DC soon. [facility] Amol Green MD - 12/08/2018 3:29 PM PDTFormatting of this note might be different from the maynor Tilley SUBJECTIVE: Upbeat, lots of family and friends in her room. No complaints. OBJECTIVE: Vitals with Comments 12/07/2018 12/07/2018 12/08/201812/08/2018 SYSTOLIC - 180 174 190 DIASTOLIC - [...] decision regard ing D/C. Pb Hammond MD troemecaio, Gopi Roman, DO - 12/07/2018 8:15 PM PDTNEPHROLOGY Pt [...] going to any Rehab. Ctr after DC. [facility] Scott Tadeo MD - 12/07/2018 8:56 [...] for discharge to home without enlisting help tGopi rick, DO - 12/06/2018 5:33 PM PDT [facility] [address] [place] [address] PROGRESS NOTE Pt. Name/Age/: Estefani Tilley 73 y.o. 1945 Med. Record Number: [id number] Date of admission: 12/04/2018 NEPHROLOGY HPI - [...] Lungs: Prolonged expiratory phase, with findings of [place] rales lower 1/4 both lungs. 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 Answered questions with head nods or patients stating that she was not taking a medication. Medication: Prior to Admission Sig: Patient taking differently GRID TRIMMER as: Atorvastatin 20 mg tablet Take 1 [...] idea what this medication was Best possible GRID TRIMMER medication list after pharmacy review: PT REPORTED [...] into the vein Three times a w zuni. Historical Provider, epoetin karthik (EPOGEN, PROCRIT) 10,000 units/mL injection Inject 10,000 Units under the ski n Three times a week. Historical ProviderMD furosemide (LASIX) 80 mg tablet Take 1 tablet by mouth Daily. Taking 50 tablet Edison avila MD gabapentin (NEURONTIN) 100 mg capsule Take 200 mg by mouth every morning. Historical Pro videMD ashwini gabapentin (NEURONTIN) 100 mg capsule Take 100 mg by mouth Daily. At noon Historical Pro MD kimberlee Glucose Blood (TRUE METRIX BLOOD GLUCOSE TEST ) by In Vitro route. Historical Provider , HYDROcodone-acetaminophen (NORCO) 5-325 mg per tablet Take 1-2 tablets by mouth every 6 ho urs as needed. 5 tablet Heather Navaror MD hydrophilic ointment Apply 1 Application topically [...] mouth every morning (before breakfast). Taking Historical Provider, UNABLE TO FIND Med Name: Cadoexomer Iodine 0.9 % gel. Apply a small amount to affected ar ea as directed during dressing changes. Historical Provider, Medication review performed and electronically signed by Kerry Jordan, Aerodynamics Engineer 12/05/2018 14:45 Reviewed by Flora Watts, PharmD [...] R?MRN: | | | | | | [id number] | | | [id number] | | | riteri | | | [...] | | | St. | | | [place] | | | y | | | [...] | | | [facility] | | | [place] | | | [facility] 0 | | | [facility] | | | St. | | | [place] | | | y | | | [...] | | | St. | | | [place] | | | y H. | | [...] | | e of | | | [place] | | | | | | mckeon [...] | | | St. | | | [place] | | | y H. | | [...] the | | | | | | cisco unified communications engineer | | | al | | | [...] | | | St. | | | [place] | | | y H. | | [...] | | e of | | | [place] | | | | | | mckeon [...] | | | [facility] | | | [place] | | | [place] | | | ID | | | [...] | | | [facility] | | | [place] | | | [place] | | | ID | | | [...] | | | [facility] | | | [place] | | | [place] | | | ID | | | [...] | | | [facility] | | | [place] | | | [place] | | | ID | | | [...] | | | [facility] | | | [place] | | | [place] | | | ID | | | [...] | | | [facility] | | | [place] | | | | | | HEALTH [...] | | | [id number] | | | [id number] | | | [id number] | | | [...] + | [facility] | [address] | [place] | [phone] | | [facility] | | [address] | | | - LABORATORY | | [...] [address] | [place] | [phone] | | [facility] | | [address] | | | - LABORATORY | | [...] + | [facility] | [address] | [place] | [phone] | | [facility] | | [address] | | | - LABORATORY | | [...] | | POC | | | [facility] | | | | | | [...] ARROYO. | [address] | [place] | [phone] | | [facility] | | [address] | | | - LABORATORY | | [...] [address] | [place] | [phone] | | [facility] | | [address] | | | - LABORATORY | | [...] + | [facility] | [address] | [place] | [phone] | | [facility] | | [address] | | | - LABORATORY | | [...] | Top Tube | | | [facility] | | [...] ST. | [address] | [place], [place] | [phone] | | [facility] | | [address] | | | - LABORATORY | | | | + + + + + CBC no Differential (12/07/2018 6:34 AM PDT) + + + + + + | Component | Value | Ref Range | Performed | Pathologist | | | | | At | Signature | + + + + + + | WBC | 6.0 | 4.0 - 11.0 K/uL | [facility] [...] | nRBC | | K/uL | [facility] | | | | | | [...] [address] | [place] | [phone] | | [facility] | | [address] | | | - LABORATORY | | [...] + | [facility] | [address] | [place] | [phone] | | [facility] | | [address] | | | - LABORATORY | | [...] [address] | [place] | [phone] | | [facility] | | [address] | | | - LABORATORY | | [...] [address] | [place] | [phone] | | [facility] | | [address] | | | - LABORATORY | | [...] [address] | [place] | [phone] | | [facility] | | [address] | | | - LABORATORY | | [...] + | [facility] | [address] | [place] | [phone] | | [facility] | | [address] | | | - LABORATORY | | [...] | | A1c | | | [facility] | | | | | | MEDICAL | | | | | | CENTER - | | | | | | LABORATORY | | + +---------+ + + + | Estimated | 143 | mg/dL | [facility] | | | Average | | | [...] [address] | [place] | [phone] | | [facility] | | [address] | | | - LABORATORY | | [...] + | [facility] | [address] | [place] | [phone] | | [facility] | | [address] | | | - LABORATORY | | [...] [address] | [place] | [phone] | | [facility] | | [address] | | | - LABORATORY | | [...] [address] | [place] | [phone] | | [facility] | | [address] | | | - LABORATORY | | [...] + | [facility] | [address] | [place] | [phone] | | [facility] | | [address] | | | - LABORATORY | | | | + + + + + Ferritin (12/05/2018 6:05 AM PDT) + +---------+ + + + | Component | Value | Ref Range | Performed | Pathologist | | | | | At | Signature | + +---------+ + + + | FERRITIN | 441 (H) | 7 - 271 ng/mL | [facility] | | | [...] [address] | [place] | [phone] | | [facility] | | [address] | | | - LABORATORY | | [...] [address] | [place] | [phone] | | [facility] | | [address] | | | - LABORATORY | | [...] [address] | [place] | [phone] | | [facility] | | [address] | | | - LABORATORY | | [...] + | [facility] | [address] | [place] | [phone] | | [facility] | | [address] | | | - LABORATORY | | [...] 105 | 98 - 107 mmol/L | [facility] | | | | | | [facility] | | | | | | MEDICAL | | | | | | CENTER - | | | | | | LABORATORY | | + + + + + + | CO2 | 26 | 20 - 31 mmol/L | [facility] | | | | | | [facility] | | | | | | MEDICAL | | | | | | CENTER - | | | | | | LABORATORY | | + + + + + + | Anion Gap | 8 | 3 - 16 mmol/L | [facility] | | | | | | [facility] | | | | | | MEDICAL | | | | | | CENTER - | | | | | | LABORATORY | | + + + + + + | Glucose | 186 (H) | 60 - 106 mg/dL | [facility] | | | | [...] mL/min/1.73m2 | [facility] | | | [place] | | | MEDICAL | | | [...] [address] | [place] | [phone] | | [facility] | | [address] | | | - LABORATORY | | [...] + | [facility] | [address] | [place] | [phone] | | [facility] | | [address] | | | - LABORATORY | | [...] [address] | [place] | [phone] | | [facility] | | [address] | | | - LABORATORY | | [...] + + | Performing | Address | City/State/Unm Cancer Centercode | Phone Number | | Organization | | | | + + + + + | [facility] | [address] | [place] | [phone] | | [facility] | | [address] | | | - LABORATORY | | [...] [address] | [place] | [phone] | | [facility] | | [address] | | | - LABORATORY | | [...] subcapital | | fracture.Dictated and Signed by: Slavatore Nunez MD Electronically signed: 12/04/2018 6:59 | [...] + | [facility] | [address] | [place] | [phone] | | [facility] | | [address] | | | - LABORATORY | | [...] | Time | | seconds | [facility] | | | | [...] + | [facility] | [address] | [place] | [phone] | | [facility] | | [address] | | | - LABORATORY | | [...] [address] | [place] | [phone] | | [facility] | | [address] | | | - LABORATORY | | [...] [facility] | | | | | | [facility] [...] [facility] | | | | | | [facility] [...] mL/min/1.73m2 | [facility] | | | [place] | | | MEDICAL | | | [...] + | [facility] | [address] | [place], [place] | [phone] | | [facility] | | [address] | | | - LABORATORY | | [...] | | | | | M/uL | [facility] | | | | | | MEDICAL | | | | | | CENTER - | | | | | | LABORATORY | | + + + + + + | Hemoglobin | 11.2 (L) | 11.5 - 16.0 | [facility] | | | | | g/dL | [facility] | | | | | [...] [address] | [place] | [phone] | | [facility] | | [address] | | | - LABORATORY | | [...] +---+---+ + +-------+ +--------+---+ + | epoetin akrthik (EPOGEN, PROCRIT) | Given | 12/08/19 | [...] | | | DAILY, First dose on Wed12/04/18 | | AM PDT | | | [...] (after last modification) | | | on 12/07/18 at 0730, | | | CORRECTION SCALE: [...] scheduled: AC, NPO, Daytime | | | 1663-4022 Use NIGHT DOSE for | | | doses scheduled: HS, 3AM, | | | Nighttime 3649-6125, | | + +---+ | | | [...] | | | HR < 60, Starting [place] 12/04/18 at | | | | | [...]
--- OUTSIDE RECORDS SUMMARY | ~2019-09-08 | XMS | Encounter Summary ---
Demographics + + + | Address | [address] | | | [place] [address] | + + + | Home Phone | | + + + | Preferred Language | Unknown | + + + | Marital Status | Single | + + + | Yarsani Affiliation | Unknown | + + + | Race | Unknown | + + + | Ethnic Group | Unknown | + + + Author + + + | Author | [facility] | | | and [place]it[place] | + + + | Organization | [facility] | | | and [place] | + + + | Address | Unknown | + + + | Phone | Unavailable | + + + Support + + + + + | Name | Relationship | Address | Phone | + + + + + | India Tilley | ECON | [address] | | | | | [place], [place] | | | | | [address] | | + + + + + | Yina La | ECON | Unknown | | + + + + + | Yina Peterson | ECON | Unknown | | + + + + + | Leatha Casillas | ECON | Unknown | | + + + + + Care Team Providers + +------+ + | Care Inspection Manager Name | Role | Phone | + +------+ + PCP | Unavailable | + +------+ + Encounter Details +--------+ + + + + | Date | Type | Department | Care Team | Description | +--------+ + + + + | 10/04/ | Abstract | [facility] | Darlin Moseley W, | | | 2017 | | NEPHROLOGY [address] | [address] | | | | | [address] | [address] [facility] | | | | | [place] | [place] [address] | | | | | [address] | [phone] | | | | | [phone] | | | +--------+ + + + [...]
--- OUTSIDE RECORDS SUMMARY | ~2019-09-08 | XMS | Encounter Summary ---
Demographics + + + | Address | [address] | | | [place] [address] | + + + | Home Phone [...] | Author | [facility] | | | and Kamaljitana | + + + | Organization | [facility] | | | and [place] | + + + | Address | Unknown | + + + | Phone | Unavailable | + + + Support + + + + + | Name | Relationship | Address | Phone | + + + + + | India Tilley | ECON | [address] | | | | | [place], [place] | | | | | [address] | | + + + + + | Yina La | ECON | Unknown | | + + + + + | Yina Peterson | ECON | Unknown | | + + + + + | Leatha Casillas | ECON | Unknown | | + + + + + Care Team Providers + +------+ + | Care Tester Operator Name | Role | Phone | [...] + + + + | 10/06/ | Telephone | [facility] | Gopi Muñoz | Nephrology | | 2018 | | NEPHROLOGY [address] | M, DO [address] | Appointment | | | | [address] | [place] | | | | | [place], [place] | [place] | | | | | [address] | [address] | | | | | [phone] | | | +--------+ + + + [...]
--- OUTSIDE RECORDS SUMMARY | ~2019-09-08 | XMS | Encounter Summary ---
Demographics + + + | Address | [address] | | | [place] [address] | + + + | Home Phone [...] | Author | [facility] | | | and Kamaljitana | + + + | Organization | [facility] | | | and [place] | + + + | Address | Unknown | + + + | Phone | Unavailable | + + + Support + + + + + | Name | Relationship | Address | Phone | + + + + + | India Tilley | ECON | [address] | | | | | [place], [place] | | | | | [address] | | + + + + + | Yina La | ECON | Unknown | | + + + + + | Yina Peterson | ECON | Unknown | | + + + + + | Leatha Casillas | ECON | Unknown | | + + + + + Care Team Providers + +------+ + | Care Warehouse Clerk Name | Role | Phone | + +------+ + PCP | Unavailable | + +------+ + Encounter Details +--------+ + + + + | Date | Type | Department | Care Team | Description | +--------+ + + + + | 10/14/ | Hospital | [facility] | | | | 2006 - | Encounter | MED CTR CANCER | | | | | | CENTER [facility] [address] | | | | 11/10/ | | [place] | | | | 2006 | | [address] | | | | | | [phone] | | | +--------+ + + + [...]
--- OUTSIDE RECORDS SUMMARY | ~2019-09-08 | XMS | Encounter Summary ---
Demographics + + + | Address | [address] | | | [place] [address] | + + + | Home Phone [...] Author | [facility] | | | and Kamaljitana | + + + | Organization | [facility] | | | and [place] | + + + | Address | Unknown | + + + | Phone | Unavailable | + + + Support + + + + + | Name | Relationship | Address | Phone | + + + + + | India Tilley | ECON | [address] | | | | | [place], [place] | | | | | [address] | | + + + + + | Yina La | ECON | Unknown | | + + + + + | Yina Peterson | ECON | Unknown | | + + + + + | Leatha Casillas | ECON | Unknown | | + + + + + Care Team Providers + +------+ + | Care Electromyographic Technician Name | Role | Phone | + +------+ + PCP | Unavailable | + +------+ + Encounter Details +--------+ + + + + | Date | Type | Department | Care Team | Description | +--------+ + + + + | 02/28/ | Hospital | [facility] | | | | 2006 | Encounter | MED CTR XRAY [address] | | | | | | [place] | | | | | | [place] [address] | | | | | | [phone] | | | +--------+ + + + [...]
--- OUTSIDE RECORDS SUMMARY | ~2019-09-08 | XMS | Encounter Summary ---
Demographics + + + | Address | [address] | | | [place] [address] | + + + | Home Phone [...] | Author | [facility] | | | and Kamaljitana | + + + | Organization | [facility] | | | and [place] | + + + | Address | Unknown | + + + | Phone | Unavailable | + + + Support + + + + + | Name | Relationship | Address | Phone | + + + + + | India Tilley | ECON | [address] | | | | | [place], [place] | | | | | [address] | | + + + + + | Yina La | ECON | Unknown | | + + + + + | Yina Peterson | ECON | Unknown | | + + + + + | Leatha Casillas | ECON | Unknown | | + + + + + Care Team Providers + +------+ + | Care Packaging Design Engineer Name | Role | Phone | [...] Description | +--------+---------+ + + + | 03/24/ | Surgery | BETH LIZ | Unknown, | DI : CT BIOPSY | | 2019 | | [facility] | MD Floyd | | | | | INTRA OP [address] | | | | | | [place] | (Fax) | | | | | [phone] | | | | | | [phone] | | | +--------+---------+ + + + [...] completion of IV abx Follow Up Appointments: [address] [address] [facility] [address] [facility] [place] [id number] [facility] [address] [id number] Discharge Disposition: Home with Home Health Consultants This Admission: ID, Nephrology Hospital Course: 73-year-old female with history of ESRD on hemodialysis, hypertension, type 2 diabetes, hyp othyroidism, chronic anemia, hyperlipidemia with a history of stroke transferred from [facility] for evaluation of T11-T12 lesion noted on [...] had planned to go to SNF ([facility] in [place], [place] - of which has accepted her [...] dialysis days after dialysis Osteomyelitis/Discitis of T11, [id number] -MRI spine 03/23/19: "mild paravertebral soft tissue [...] dialysis patient - has OP clinic in [place] already Macrocytic anemia likely secondary to-likely anemia [...] Value Units Date/Time Culture, Aerobic + Anaerobic [[id number]] Collected: 03/24/19 1514 Order Status: Completed Lab Status: Final result Updated: 03/29/1918 Specimen: Body Fluid from Vertebrae, Thoracic FINAL REPORT -- No Growth No anaerobes isolated Gram Stain Few Neutrophils No squamous epithelial cells seen No organisms seen Comment: Performed by [facility] [address] [place] [address] Gram Stain [[id number]] Collected: 03/24/19 151 Order Status: Canceled Lab Status: No result Updated: 03/24/191514 Specimen: Body Fluid from Vertebrae, Thoracic Culture, AFB Smear [[id number]] Collected: 03/24/191513 Order Status: Completed Lab Status: Preliminary result Updated: 03/25/19 1054 Specimen: Body Fluid from Vertebrae, Thoracic AFB Smear Result No Acid Fast Bacilli Seen Comment: Performed by [facility] [address] [place] [address] Culture, Fungus, Smear [[id number]] Collected: 03/24/19 151 Order Status: Completed Lab Status: Preliminary result Updated: 03/25/19 1039 Specimen: Body Fluid from Vertebrae, Thoracic CALCOFLUOR No fungal elements seen Comment: Performed by [facility] [address] [place] [address] Culture, Blood [[id number]] Collected: 03/23/19 2333 Order Status: Completed Lab Status: Final result Updated: 03/28/19 2352 Specimen: Blood Culture No growth after 5 days incubation. Culture, Blood [[id number]] Collected: 03/23/19 2255 Order Status: Completed Lab [...] this chart may have been created with Evomail voice recognition software. Occasi onal wrong-word or [...] | | | | | | | (HCC), Right hip | | | | | [...] vancomycin in | 500 mg IV on / | 14 each | 0 | 03/31/20 [...] 03/31/2019 5:42 PM PDTPatient left with family, [place] supplies and i nstructions received before discharge and RX's filled at outpt pharmacy. VSS, ambulating wit h SBA, A&O x4, accepting of discharge. Dialysis completed this AM. Pain controlled with q4 o xy, LD 1400. Home health will f/u tomorrow. AVS reviewed and sent with patient, verbalized u nderstanding. Merry Hess MSW - 03/31/2019 11:05 AM PDTSOCIAL WORK PLAN: Home with [facility] NEXT STEPS: 1. Pt to follow up with [facility] 2. [facility] to follow up with pt at dc INTERVENTION: SW spoke with [facility], pt has a $2.50 out of pocket cost weekly, pt is agreeable to pay for this. Therefore pt will dc today with [facility]. SW provided [facility] with hard script for IV abx. SW faxed over HH order to [facility], SW faxed over IV vanco script to [facility]. [facility] notified of pt's dc home. notified. [facility] to meet with pt later this afternoon for teach. SW provided pt with 3 gas cards to assist with transportation. No further dc needs identified. SW received call from [facility] clinic that they cannot provide IV Vanco as Vanco h as not been consigned by [facility] that has privileges in [place]. IV Vanco will now be done b y [facility], [address] faxed over hard script to [facility]. They will have both IV Abx ready and will teach pt shortly. No further dc needs identified. CONTACTS: Yina La: sister India Tilley: sister [place] Transportation: [place] Medicaid Transportation fax: [phone] [facility]: [phone] fax: [phone] [facility] [phone] [facility]: [phone] [facility]: [phone] [facility] FAX: [phone] aray Michelle Taylor - 03/31/2019 10:12 AM PDT Patient: Estefani Tilley Date of : 1945 Admit Date: 03/24/2019 Date of Service: 03/31/2019 PCP: Francisca Womack PA-C Hospital Day: Hospital Day: 8 Hospital Course: 73-year-old female with history of ESRD on hemodialysis, hypertension, type 2 diabetes, hyp othyroidism, chronic anemia, hyperlipidemia with a history of stroke transferred from [facility] for evaluation of T11-T12 lesion noted on [...] to go to SNF ([facility] in [place], [place] - of which has accepted her [...] dialysis patient - has OP clinic in [place] already Macrocytic anemia likely secondary to-likely anemia [...] hoping to arrange home IV antibiotics through [facility]. Awaiting to see if insurance will cover [...] fevers or chills. Objective: Vital Signs 03/29 07 - 03/30 0659 03/30 700 - 03/31 [...] - 99 mg/dL Final Comment: Performed by [place] [address] [address] [facility] [place] [address] 03/30/2019 21:14 200 (H) 65 - 99 mg/dL Final Comment: Performed by [place] [address] [address] [facility] [place] [address] 03/30/2019 17:46 111 (H) 65 - 99 mg/dL Final Comment: Performed by [place] [address] [address] [facility] [place] [address] 12/09/2018 18:05 113 (H) 70 - 109 [...] this chart may have been created with Dragon voice recognition software. Occasi onal wrong-word or sound-alike substitutions may have occurred due to the inherent mckeon itations of voice recognition software. Please read the chart carefully and recognize, using context, where these substitutions have occurred esus Whitney MD - 03/31/2019 8:26 AM PDT . Infectious Diseases Progress Note Pt. Name/Age/: Estefani Tilley 73 y.o. 1945 Med. Record Number: [id number] Date of admission: 03/24/2019 Patient admitted with [...] Electronically signed by: Jesus Whitney, 03/31/2019 8:26 [facility] Robb Phillips, PharmD - 03/31/2019 7:25 AM PDTFormatting of this note might be different from the [facility] nal. Pharmacy Progress Note VANCOMYCIN PER PHARMACY [...] mg/dL (H)). Lab Results Component Value Date/Time ALEJANDROOM 19.0 03/31/2019 04:12 I/O last 3 completed shifts: In: 1810 [P.O.:1810] Out: 0 No intake/output data recorded. Micro/Cultures: BCx - NGTD, BiopsyCx - NGTD Per P&T-approved Vancomycin Protocol Electronically signed by: Robb Wheeler PharmD 03/31/2019 7:25 su, Randy Nunez MD - 03/30/2019 9:45 PM PDT [facility] INPATIENT ROUNDING NOTE Date of Service: 03/30/2019 Rounding Physician: Randy Corrigan MD Patient Name: Estefani Tilley : 1945 Medical Record: [id number] Hospital Summary: Estefani Tilley is a 73 y.o. female with a PMHx of ESRD, HTN, Dm type 2, hypothyroidism, HLd, CVA who is under the care of Dr Muñoz at [facility] who dialyzes MWF admitted with possible osteo [...] -- 27 28 27 BUN 10 19 -- CREA 2.79* 4.14* 3.12* -- 3.82* 3.01* [...] signed by: Trace Corrigan MD, 03/30/2019, 21:45 ettler, Nan Tony, MEDICAL PATHOLOGY TEACHER - 03/30/2019 2:34 PM PDT SOCIAL WORK D/C PLAN:DC home with [facility] providing IV-ABX and [facility] providing picc care and lab draws vs [facility] NEXT STEPS: -SW will need to follow up with [facility] regarding providing IV-ABX to pt. -SW will need to follow up with [facility] regarding providing picc care and lab draws. -SW will need to follow up with [facility] regarding having pt receive vanco do se while at dialysis center if pt is to go home with IV-ABX -SW will need to follow up with [facility] if pt is unable to go home with IV-ABX rega ridng pt's DC -SW will need to fax SNF orders, scripts and PASRR to [facility] if pt is unable to go home -SW will need to provide gas cards to pt's family for transportation home. INTERVENTION:ROBIN spoke with pt regarding acceptance to [facility]. Pt is now wanting to go home with IV-ABX. ROBIN spoke with [facility]. They go out to [place], [place] and have openings for nursing care. Referral faxed to [facility]. Pt is amenable to using [facility] for IV-ABX. SW spoke with [facility] liasion who will run pt's be nefits to see if she can DC home with IV-ABX. Pt states that [facility] can provide teach to her son to help administer IV-ABX. SW left message for [facility] to see if they can provide vanco dose to pt at [facility] on Wednesday, Wednesday and Wednesday if pt is able to go home. Pt states that she does dialysis on Wednesday, Wednesday and Wednesday from 12:00-4:00. SW received phone call from [facility]. They have accepted pt for admission if [...] if pt is going to go to [facility] SNF. ASSESSMENT/CHART REVIEW:73 yr old femalewith a history of ESRD on hemodialysis, hypertens ion, type 2 diabetes, hypothyroidism,chronic anemia,hyperlipidemia, hx of stroke [facility] of T[facility]-T12 lesion noted on MRI concerning fo r osteomyelitis. SW met with pt's sister, Yina, and her cousin, Keri, who were waiting in pt's room while s he was in dialysis. SW will need to follow up with pt re: d/c planning. Pt's sister and cousin related that pt mostly lives at Yina's house outside [place], [place], but does not like to be tied down because she enjoys attending [place] festivals and many events. She does at [facility] dialysis weekly. Pt has a vehicle and is very independent. D/C TRANSPORT:Pt can be transported home or to [facility] via family in a private car. They will need gas cards to help pay for transportation. BARRIERS TO D/C:none CONTACTS: Yina La: sister India Tilley: sister [place] Transportation: [place] Transportation fax: [phone] [facility]: [phone] fax: [phone] [facility] [phone] [facility]: [phone] [facility]: [phone] [facility] FAX: [phone] Nan Cheney MSW - 03/30/2019 12:57 PM PDTSOCIAL WORK D/C PLAN:SNF: [facility] NEXT STEPS:Await bed availability INTERVENTION: ROBIN called and left message for Roneugene at [facility] regarding if they are willing to accept pt and to discuss transportation to and from dialysis. SW also called and left message for [place] Medicaid transportation regarding if they can transp ort pt to and from dialysis upon DC. Pt states that she goes to [facility] dialys is in [place], [place] on Wed, Wed, and Fridays from 12:00-4:00 pm. SW left message with [facility] regarding if there was any way that they may also be able to help with transportation to and from dialysis while pt is in rehab and to ensure that pt still has her chair time scheduled. [facility] is only open M on, Wednesday and Wednesday. ASSESSMENT/CHART REVIEW:73 yr old femalewith a history of ESRD on hemodialysis, hypertens ion, type 2 diabetes, hypothyroidism,chronic anemia,hyperlipidemia, hx of stroke [facility] noted on MRI concerning fo r osteomyelitis. ROBIN met with pt's sister, Yina, and her cousin, Keri, who were waiting in pt's room while s he was in dialysis. ROBIN will need to follow up with pt re: d/c planning. Pt's sister and cousin related that pt mostly lives at Yina's house outside [place], [place], but does not like to be tied down because she enjoys attending [place] festivals and many events. She does at [facility] weekly. Pt has a vehicle and is very independent. D/C TRANSPORT:tbd BARRIERS TO D/C:none CONTACTS: Yina La: sister India Tilley: sister [place] Transportation: [place] Medicaid Transportation fax: [phone] [facility]: [phone] fax: [phone] [facility] [phone] [facility]: [phone] signed by JENNIFER Xavier at 03/30 1:09 PM Michelle Cowan DO - 03/30/2019 11:09 AM PDTFormatting of [...] with a history of stroke transferred from [facility] for evaluation of T11-T12 lesion [...] dialysis patient - has OP clinic in [place] already ---> will need SW to help [...] SNF - awaiting to hear back from [facility], in [place], [place] regarding possible acceptance there. Medically ready [...] Single Lumen 03/24/19 2143 Left Lateral Forearm yrgr-gln-muqgts daniel ter system 20 gauge;1 1/4 in [...] - 99 mg/dL Final Comment: Performed by [facility] [address] [place] [address] 03/29/2019 21:09 157 (H) 65 - 99 mg/dL Final Comment: Performed by [facility] [address] [place] [address] 03/29/2019 18:50 91 65 - 99 mg/dL Final Comment: Performed by [facility] [address] [place] [address] 12/09/2018 18:05 113 (H) 70 - 109 [...] this chart may have been created with Evomail voice recognition software. Occasi onal wrong-word or sound-alike substitutions may have occurred due to the inherent mckeon itations of voice recognition software. Please read the chart carefully and recognize, using context, where these substitutions have occurred esus Whitney MD - 03/30/2019 7:15 AM PDT . Infectious Diseases Progress Note Pt. Name/Age/: Estefani Tilley 73 y.o. 1945 Med. Record Number: [id number] Date of admission: 03/24/2019 Patient admitted with [...] Electronically signed by: Jesus Whitney, 03/30/2019 7:15 [facility] Mary Wade RN - 03/30/2019 6:16 [...] intention has depression wishful of Monitoring Requirements [facility] Suicide Policy [facility] Suicide Risk/Telesitter Screening Utilizing this rating [...] 03/29/2019 4:18 PM PDTSOCIAL WORK D/C PLAN:SNF: [facility] NEXT STEPS:Await bed availability INTERVENTION: SW called and spoke with admissions person at [facility], they are still discussing pt's case. [...] anemia,hyperlipidemia, hx of stroke [facility] lesion noted on MRI concerning fo r osteomyelitis. SW met with pt's sister, Yina, and her cousin, Keri, who were waiting in pt's room while s he was in dialysis. SW will need to follow up with pt re: d/c planning. Pt's sister and cousin related that pt mostly lives at Yina's house outside [place], [place], but does not like to be tied down because she enjoys attending [place] festivals and many events. She does at [facility] weekly. Pt has a vehicle and is very independent. D/C TRANSPORT:tbd BARRIERS TO D/C:none CONTACTS: Yina La: sister India Tilley: sister [place] Medicaid Transportation: [facility]: [phone] fax: [phone] [facility] [phone] signed by JENNIFER Contreras at 03/29/2019 4:20 PM Randy Yu MD - 03/29/2019 12:32 PM PDT [facility] INPATIENT ROUNDING NOTE Date of Service: 03/29/2019 Rounding Physician: Randy Corrigan MD Patient Name: Estefani Tilley : 1945 Medical Record: [id number] Hospital Summary: Estefani Tilley is a 73 y.o. female with a PMHx of ESRD, HTN, Dm type 2, hypothyroidism, HLd, CVA who is under the care of Dr Muñoz at [facility] who dialyzes MWF admitted with possible osteo [...] Trace Corrigan MD, 03/29/2019, 12:32 after, Michelle Taylor DO - 03/29/2019 12:12 PM PDT Patient: Estefani Tilley Date of : 1945 Admit Date: 03/24/2019 Date of Service: 03/29/2019 PCP: Francisca Womack PA-C Hospital Day: Hospital Day: 6 Hospital Course: 73-year-old female with history of ESRD on hemodialysis, hypertension, type 2 diabetes, hyp othyroidism, chronic anemia, hyperlipidemia with a history of stroke transferred from [facility] for evaluation of T11-T12 lesion noted on [...] awaiting to hear from [facility], in [place] regarding possible acceptance. May be able [...] dialysis patient - has OP clinic in [place] already ---> will need SW to help [...] SNF - awaiting to hear back from [facility], in [place], [place] regarding possible acceptance there. Could possibly [...] fevers or chills. Objective: Vital Signs 03/27 07 - 03/28 0659 03/28 07 - 03/29 [...] Single Lumen 03/24/19 2143 Left Lateral Forearm eofj-imc-lckgmv daniel ter system 20 gauge;1 1/4 in [...] - 99 mg/dL Final Comment: Performed by [facility] [address] [place] [address] 03/28/2019 21:06 144 (H) 65 - 99 mg/dL Final Comment: Performed by [facility] [address] [place] [address] 03/28/2019 11:22 119 (H) 65 - 99 mg/dL Final Comment: Performed by [facility] [address] [place] [address] 12/09/2018 18:05 113 (H) 70 - 109 [...] this chart may have been created with Evomail voice recognition software. Occasi onal wrong-word or [...] (H)). Lab Results Component Value Date/Time SUNDEEPNDOM 18.6 03/29/2019 05:19 I/O last 3 completed shifts: In: 720 [P.O.:720] Out: - No intake/output data recorded. Micro/Cultures: BCx - NGTD, BiopsyCx - NGTD Per P&T-approved Vancomycin Protocol Electronically signed by: Zari Mitchell, PharmD 03/29/2019 9:36 esus Whitney MD - 03/29/2019 7:35 A M PDT Infectious Diseases Progress Note Pt. Name/Age/: Estefani Tilley 73 y.o. 1945 Med. Record Number: [id number] Date of admission: 03/24/2019 Patient admitted with [...] Electronically signed by: Jesus Whitney, 03/29/2019 7:35 [facility] zech, Carolina Restrepo RN - 03/28/2019 7:08 PM [id number] - Report called to Sanjuanita GONZALEZ. Pt's belongings . I pad and I phone w/ chargers as well as pt's purse, and shoes, and shirt and pants all sent with her to [address] [place] [address]. Pt had been sitting up eating dinner. Ate much better this evening. Ate 40% of h er dinner. Drank 1/2 of her boost. Doing better with much encouragement. Pt appeared sad tod kam, and I spent a lot of time [...] with a history of stroke transferred from [facility] for evaluation of T11-T12 lesion noted on [...] Single Lumen 03/24/19 2143 Left Lateral Forearm ztov-tov-azmdoy daniel ter system 20 gauge;1 1/4 in [...] - 99 mg/dL Final Comment: Performed by [facility] [address] [place] [address] 03/28/2019 07:09 75 65 - 99 mg/dL Final Comment: Performed by [facility] [address] [place] [address] 03/27/2019 20:38 109 (H) 65 - 99 mg/dL Final Comment: Performed by [facility] [address] [place] [address] 12/09/2018 18:05 113 (H) 70 - 109 [...] this chart may have been created with Evomail voice recognition software. Occasi onal wrong-word or sound-alike substitutions may have occurred due to the inherent mckeon itations of voice recognition software. Please read the chart carefully and recognize, using context, where these substitutions have occurred Cordell Mcgarry, [facility] - 03/28/2019 2:57 PM PDTSOCIAL WORK D/C PLAN: SNF: [facility] NEXT STEPS: Await bed availability INTERVENTION: On-going dc planning. Rec'd update from [facility]. They confirm they have r ec'd clinical notes and are currently reviewing. SW will follow. ASSESSMENT/CHART REVIEW:73 yr old femalewith a history of ESRD on hemodialysis, hypertens ion, type 2 diabetes, hypothyroidism,chronic anemia,hyperlipidemia, hx of stroke [facility] of T[facility]-T12 lesion noted on MRI concerning fo r osteomyelitis. SW met with pt's sister, Yina, and her cousin, Keri, who were waiting in pt's room while s he was in dialysis. SW will need to follow up with pt re: d/c planning. Pt's sister and co usin related that pt mostly lives at Yina's house outside [place], [place], but does not like to be tied down because she enjoys attending [place] festivals and many events. She does atten d dialysis weekly. Pt has a vehicle and is very independent. D/C TRANSPORT: tbd BARRIERS TO D/C: none CONTACTS: Yina La: sister India Tilley: sister [facility]: [phone] fax: [phone] [facility] [phone] illum, Mario Alberto morales MD - 03/28/2019 7:34 AM PDTFormatting of this note might be different from the [facility] Infectious Diseases Progress Note Pt. Name/Age/: Estefani Jimenez Jarek 73 y.o. 1945 Med. Record Number: [id number] Date of admission: 03/24/2019 Patient admitted with [...] Requires optimal control Electronically signed by: Carlos Jansen 03/28/2019 7:34 [facility] Katey Solis MD - 03/27/2019 8:58 PM PDT Patient: Estefani Tilley Date of : 1945 Admit Date: 03/24/2019 Date of Service: 03/27/2019 PCP: Francisca Womack PA-C Hospital Day: Hospital Day: 4 Hospital Course: 73-year-old female with history of ESRD on hemodialysis, hypertension, type 2 diabetes, hyp othyroidism, chronic anemia, hyperlipidemia with a history of stroke transferred from [facility] for evaluation of T11-T12 lesion noted on MRI concerning for osteomyeliti s. Infectious disease consulted. Status post aspiration from her thoracic spine, Gram stain negative, cultures pending. Rosemary ent started on empiric vancomycin and cefepime. Will need 6 weeks of IV antibiotics. 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 Nephrology following for maintenance hemodialysis. 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 Pain management -trial of lidocaine [...] Single Lumen 03/24/19 2143 Left Lateral Forearm eded-jxt-ivvyfu daniel ter system 20 gauge;1 1/4 in [...] - 99 mg/dL Final Comment: Performed by [facility] [address] [place] [address] 03/27/2019 13:58 82 65 - 99 mg/dL Final Comment: Performed by [facility] [address] [place] [address] 03/27/2019 06:39 83 65 - 99 mg/dL Final Comment: Performed by [facility] [address] [place] [address] 12/09/2018 18:05 113 (H) 70 - 109 [...] this chart may have been created with Evomail voice recognition software. Occasi onal wrong-word or sound-alike substitutions may have occurred due to the inherent mckeon itations of voice recognition software. Please read the chart carefully and recognize, using context, where these substitutions have occurred arlin Diaz, [facility] - 03/27/2019 3:17 PM PDTSOCIAL WORK D/C PLAN: SNF: [place] NEXT STEPS: Await bed availability INTERVENTION: Rec'd call from Emili at [facility]. She states the contracted f acility near pt's home is [place]. Spoke with pt and with sister India. Referral and (-) Pasrr sent to [facility]. Copy of Pasrr placed in light chart with request to file into jos rds. SW will follow. ASSESSMENT/CHART REVIEW:73 yr old femalewith a history of ESRD on hemodialysis, hypertens ion, type 2 diabetes, hypothyroidism,chronic anemia,hyperlipidemia, hx of stroke [facility] noted [...] be tied down because she enjoys attending [place] festivals and many events. She does atten d dialysis weekly. Pt has a vehicle and is very independent. D/C TRANSPORT: tbd BARRIERS TO D/C: none CONTACTS: Yina La: sister India Tilley: sister [facility]: [phone] fax: [phone] [place] [phone] Gregg Mcgarry [facility] - 03/27/2019 2:17 PM PDTFormatting of this note might be different from jerald more. SOCIAL WORK D/C PLAN: SNF NEXT STEPS: SW to follow up with pt regarding SNF preference INTERVENTION: On-going dc planning, chart reviewed and met with pt. Discussed need of half-way IV abx, Discussed options. Provided list of [...] be tied down because she enjoys attending [place] festivals and many events. She does atten d dialysis weekly. Pt has a vehicle and is very independent. ASSESSMENT/CHART REVIEW:73 yr old femalewith a history of ESRD on hemodialysis, hypertens ion, type 2 diabetes, hypothyroidism,chronic anemia,hyperlipidemia, hx of stroke [facility] lesion noted on MRI concerning fo r osteomyelitis. D/C TRANSPORT: tbd BARRIERS TO D/C: none CONTACTS: Yina La Sister [phone] India Tilley Sister [phone] Chichi, Irish sexton, Equipment Superintendent - 03/27/2019 1:33 PM PDTFormatting of this [...] (H)). Lab Results Component Value Date/Time VANCORANDOM 17.7 03/27/2019 05:12 I/O last 3 completed shifts: In: 360 [P.O.:360] Out: 1 [Urine:1] I/O this shift: In: - Out: 2000 Micro/Cultures: BCx - NGTD, BiopsyCx - NGTD Per P&T-approved Vancomycin Protocol Electronically signed by: Aimee Carroll, Equipment Superintendent 03/27/2019 13:33Electronically si gned by Ray Joel, PharmD at 03/27/2019 2:04 PM PDT Associated attestation - Ray Joel PharmD - 03/27/2019 2:04 PM PDTI reviewed and agr ee with the assessment and plan. Ray Joel, PharmDeepa 03/27/2019 14:04 Randy Corrigan MD - 03/27/2019 10:52 AM PDT [facility] INPATIENT ROUNDING NOTE Date of Service: 03/27/2019 Rounding Physician: Randy Corrigan MD Patient Name: Estefani Tilley : 1945 Medical Record: [id number] Hospital Summary: Estefani Tilley is a 73 y.o. female with a PMHx of ESRD, HTN, Dm type 2, hypothyroidism, HLd, CVA who is under the care of Dr Muñoz at [facility] who dialyzes MWF admitted with possible osteo [...] bruit and thrill Recent Labs Lab 03/26/19 04103/25/1991703/24/1918 WBC 4.57 5.34 5.46 HGB 10.2* 10.2* 9.9* HCT 32.1* 31.5* 31.3* PLT 179 192 177 Recent Labs Lab 03/26/19 1144 03/26/19 04103/25/1991703/24/1918 03/23/19 1903 NA -- 133* 135 141 [...] Jarek 73 y.o. 1945 Med. Record Number: [id number] Date of admission: 03/24/2019 Patient admitted with [...] Electronically signed by: Carlos Jansen, 03/27/2019 7:10 [facility] Katey Solis MD - 03/26/2019 5:40 PM PDT Patient: Estefani Tilley Date of : 1945 Admit Date: 03/24/2019 Date of Service: 03/26/2019 PCP: Francisca Womack PA-C Hospital Day: Hospital Day: 3 Hospital Course: 73-year-old female with history of ESRD on hemodialysis, hypertension, type 2 diabetes, hyp othyroidism, chronic anemia, hyperlipidemia with a history of stroke transferred from [facility] [place] for evaluation of T11-T12 lesion noted on [...] Single Lumen 03/24/19 2143 Left Lateral Forearm wspg-vhr-bfxfze daniel ter system 20 gauge;1 1/4 in [...] - 99 mg/dL Final Comment: Performed by [facility] [address] [place] [address] 03/26/2019 06:49 116 (H) 65 - 99 mg/dL Final Comment: Performed by [facility] [address] [place] [address] 03/25/2019 20:37 110 (H) 65 - 99 mg/dL Final Comment: Performed by [facility] [address] [place] [address] 12/09/2018 18:05 113 (H) 70 - 109 [...] this chart may have been created with Evomail voice recognition software. Occasi onal wrong-word or sound-alike substitutions may have occurred due to the inherent mckeon itations of voice recognition software. Please read the chart carefully and recognize, using context, where these substitutions have occurred Jose Gamez, Pharmacy R esident - 03/26/2019 10:52 AM PDTFormatting of this note might be different from the [facility] Progress Note VANCOMYCIN PER PHARMACY PROTOCOL: [...] Vancomycin Protocol Electronically signed by: Jose Menard, Equipment Superintendent 03/26/2019 10:52 su, Randy Nunez MD - 03/26/2019 1 0:38 AM PDT [facility] INPATIENT ROUNDING NOTE Date of Service: 03/26/2019 Rounding Physician: Randy Corrigan MD Patient Name: Estefani Tilley : 1945 Medical Record: [id number] Hospital Summary: Estefani Tilley is a 73 y.o. female with a PMHx of ESRD, HTN, Dm type 2, hypothyroidism, HLd, CVA who is under the care of Dr Muñoz at [facility] who dialyzes MWF admitted with possible osteo disccitis t11/t12 ASSESSMENT AND PLAN 1. ESRD/HD dependent Access is LUE AVF working well No indications for HD today Usually dialyzes MWF at [facility] Hd tommorow 2. Anemia Hg at goal [...] Max: 99 % 03/25 701 - 03/26 0700 In: 70 [I.V.:15] Out: - AOx3 JVp not elevated Chest is clear CVS RRR Abdomen Nt Ext no edema LUE AVF with good bruit and thrill Recent Labs Lab 03/26/1941003/25/1991703/24/19517 WBC 4.57 5.34 5.46 HGB 10.2* 10.2* 9.9* HCT 32.1* 31.5* 31.3* PLT 179 192 177 Recent Labs Lab 03/26/1941003/25/1991703/24/1951703/23/19 1903 NA 133* 135 141 137 K [...] Probiotic and PO labetalol not available in [place] when this RN went in to do med pass, will pass to RN taking over care. 9:5 6 AM PDTGillCarlos north MD - 03/26/2019 8:03 AM PDTFormatting of this note might be differ ent from the original. Infectious Diseases Progress Note Pt. Name/Age/: Estefani Tilley 73 y.o. 1945 Med. Record Number: [id number] Date of admission: 03/24/2019 Patient admitted with [...] Electronically signed by: Carlos Jansen, 03/26/2019 8:03 [facility] Katey Solis MD - 03/25/2019 3:50 PM PDT Patient: Estefani Tilley Date of : 1945 Admit Date: 03/24/2019 Date of Service: 03/25/2019 PCP: Francisca Womack PA-C Hospital Day: Hospital Day: 2 Hospital Course: 73-year-old female with history of ESRD on hemodialysis, hypertension, type 2 diabetes, hyp othyroidism, chronic anemia, hyperlipidemia with a history of stroke transferred from [facility] [place] for evaluation of T11-T12 lesion noted on [...] Alert and Oriented. Objective: Vital Signs 03/23 07 - 03/24 0659 03/24 07 - 03/25 [...] Single Lumen 03/24/19 2143 Left Lateral Forearm tdiq-gsv-ocserq daniel ter system 20 gauge;1 1/4 in [...] - 99 mg/dL Final Comment: Performed by [facility] [address] [place] [address] 03/25/2019 06:52 107 (H) 65 - 99 mg/dL Final Comment: Performed by [facility] [address] [place] [address] 03/24/2019 20:11 112 (H) 65 - 99 mg/dL Final Comment: Performed by [facility] [address] [place] [address] 12/09/2018 18:05 113 (H) 70 - 109 [...] this chart may have been created with Evomail voice recognition software. Occasi onal wrong-word or sound-alike substitutions may have occurred due to the inherent mckeon itations of voice recognition software. Please read the chart carefully and recognize, using context, where these substitutions have occurred su, Randy Nunez MD - 0 03/25/2019 1:47 PM PDT [facility] INPATIENT ROUNDING NOTE Date of Service: 03/25/2019 Rounding Physician: Randy Corrigan MD Patient Name: Estefani Tilley : 1945 Medical Record: [id number] Hospital Summary: Estefani Tilley is a 73 y.o. female with a PMHx of ESRD, HTN, Dm type 2, hypothyroidism, HLd, CVA who is under the care of Dr Muñoz at [facility] who dialyzes MWF admitted with possible osteo disccitis t11/t12 ASSESSMENT AND PLAN 1. ESRD/HD dependent Access is LUE AVF working well No indications for HD today Usually dialyzes MWF at [facility] She is below her EDW an EDW [...] Min: 93 % Max: 100 % 03/24 07 - 03/25 0700 In: 250 [I.V.:250] Out: [...] signed by: Trace Corrigan MD, 03/25/2019, 13:47 an Saldivar MSW - 03/25/2019 10:49 AM PDT SOCIAL [...] pt mostly lives at Yina's house outside [facility], [place], but does not like to be tied down because she enjoys attending [place] festivals and many events. She does atten d dialysis weekly. Pt has a vehicle and is very independent. ASSESSMENT/CHART REVIEW:73 yr old femalewith a history of ESRD on hemodialysis, hypertens ion, type 2 diabetes, hypothyroidism,chronic anemia,hyperlipidemia, hx of stroke [facility]-T12 lesion noted on MRI concerning fo r osteomyelitis. D/C TRANSPORT: tbd BARRIERS TO D/C: none CONTACTS: Yina La Sister [phone] India Tilley Sister [phone] Carlos Gonzales M D - 03/25/2019 8:34 AM PDT Infectious Diseases Progress Note Pt. Name/Age/: Estefani Tilley 73 y.o. 1945 Med. Record Number: [id number] Date of admission: 03/24/2019 Patient admitted with [...] Electronically signed by: Carlos Jansen, 03/25/2019 8:34 [facility] Jose Gamez, Equipment Superintendent - 03/24/2019 10:46 PM PDTFormatting of this [...] Vancomycin Protocol Electronically signed by: Jose Menard, Equipment Superintendent 03/24/2019 22:46 Gladys Daugherty MSW - 9 [...] pt mostly lives at Yina's house outside [place], [place], but do es not like to be tied down because she enjoys attending [place] festivals and many events. She does attend dialysis weekly. Pt has a vehicle and is very independent. ASSESSMENT/CHART REVIEW:73 yr old female with a history of ESRD on hemodialysis, hypertensi on, type 2 diabetes, hypothyroidism, chronic anemia, hyperlipidemia, hx of stroke transferre d from [facility] for evaluation of T11-T12 lesion noted on MRI concerning for ost eomyelitis. D/C TRANSPORT: tbd BARRIERS TO D/C: none CONTACTS: Yina La Sister [phone] India Tilley Sister [phone] Katey Solis MD - 03/24/2019 3:53 PM PDTPatient seen and examined. Chart reviewed. Briefly, 73-year-old female with history of ESRD on hemodialysis, hypertension, type 2 diab etes, hypothyroidism, chronic anemia, hyperlipidemia with a history of stroke transferred fr om [place] at [place] for evaluation of T11-T12 lesion noted on [...] not have any p raza, consider antidepressants. toll testboard worker consulted for concerns for housing concerns [...] 1250 mg IV once given 03/23 @ 4823 at [facility]. 2. Target Trough: 15-20 mcg/ml 3. [...] Procedure Component Value Units Date/Time Culture, Blood [[id number]] Collected: 03/23/192332 Order Status: Sent Lab Status: In process Updated: 03/23/192348 Specimen: Blood Culture, Blood [[id number]] Collected: 03/23/192254 Order Status: Sent Lab Status: [...] | [facility] | | | POC | [facility] [address], | | SACRED | | | | [place] [address] | | HEART | | | |Performed by [facility] [address], [place] [address] | | MEDICAL | | | | [...] Ave. | [place] | | | [facility] | | | | | LABORATORY [place] [...] | RIMAE | | | POC | [facility] [address], | | SACRED | | | | [place] | | HEART | | | |Performed by [facility] [address], [place] [address] | | MEDICAL | | | | [...] + + | [facility] | [address] | [place] [address] | | | [facility] | | | | | [...] | | LABORATORY | | | | [facility] [address] [place], | | [place]ERN[place] | | | | [place] [address] | | | | + + + + + + + + | Specimen | + + | Blood specimen | | (specimen) | + + + + + + + | Performing | Address | City/State/Zipcode | Phone Number | | Organization | | | | + + + + + | [facility] | [address] | [place] [address] | | | [facility] | | | | | [...] ENCE | | | Immature | by [facility] [address], | K/uL | SACRED | | | Granulocyte | [place] [address] | | HEART | | | s |Performed by [facility] [address], [place] [address] | | MEDICA L | | | [...] + + | [facility] | [address] | [place] [address] | | | [facility] | | | | | [...] by | | | | | | [facility] [address], | | | | | | [place] [address] | | | | + + + + + + + + | Specimen | + + | Blood specimen | | (specimen) | + + + + + + + | Performing | Address | City/State/Zipcode | Phone Number | | Organization | | | | + + + + + | BETH LIZ | [address] | [place] [address] | | | [facility] | | | | | [...] | | | POC | Performed by [facility] [address] | | SACREVANS | | | | [place] | | HEART | | | | [address] | | MEDICAL | | | | [...] + + | BETH LIZ | [address] | [place] [address] | | | [facility] | | | | | [...] | | | POC | Performed by [facility] [address] | | SACRED [...] | [address] | [place] [address] | | | HEART [facility] | | | | | [...] | | | POC | Performed by [facility] [address] | | SACRED | | | | [address] [place] | | HEART | | | | [address] | | MEDICAL | | | | [...] + + | BETH LIZ | [address] | [place] [address] | | | [facility] | | | | | [...] | | | POC | Performed by [facility] [address] | | SACRED [...] [address] | [place] [address] | | | HEART [facility] | | | | | [...] PROVIDE NCE | | | | by [facility] [address], | | SACRED | | | | [place] [address] | | HEART | | | |Performed by [facility] [address], [place] [address] | | MEDICAL | | | | [...] + + | JIMRENUKA LIZ | [address] | [place] [address] | | | [facility] | | | | | [...] LUIS CE | | | | by [facility] [address], | | SACRED | | | | [place] [address] | | HEART | | | |Performed by [facility] [address], [place] [address] | | MEDICAL | | | | [...] [address] | [place] [address] | | | [facility] | | | | | [...] | | LABORATORY | | | | [facility] [address], | | CERN[place] | | | | [place] [address] | | | | + + + + + + + + | Specimen | + + | Blood specimen | | (specimen) | + + + + + + + | Performing | Address | City/State/Zipcode | Phone Number | | Organization | | | | + + + + + | BETH LIZ | [address] | [place] [address] | | | [facility] | | | | | [...] ENCE | | | Counted | by [facility] [address] [place] [address], | | SACRED | | | | [place] [address] | | HEART | | | |Performed by [facility] [address], [place] [address] | | MEDICA L | | | [...] + + | BETH LIZ | [address] | [place] [address] | | | [facility] | | | | | [...] | | | POC | Performed by [facility] [address] | | SACRED | | | | [address] [place], [place] | | HEART | | | | [address] | | MEDICAL | | | | [...] [address] | [place] [address] | | | [facility] | [...] | PROVIDENCE | | | POC | [facility] [address], | | SACRED | | | | [place] [address] | | HEART | | | |Performed by [facility] [address] [place], [place] [address] | | MEDICAL | | | | [...] + + | JIMRENUKA LIZ | [address] | [place] [address] | | | [facility] | | | | | [...] | | | POC | Performed by [facility] [address] | | SACRED | | | | [address] [place] | | HEART | | | | [address] | | MEDICAL | | | | [...] [address] | [place] [address] | | | [facility] | | | | | [...] AGUSTO | | | | [place] [address] | | HEART | | | |Performed by [facility] [address], [place] [address] | | MEDICAL | | | | [...] + + | BETH LIZ | [address] | [place] [address] | | | [facility]ICAL [facility]ENTER | [...] by | | | | | | [facility] [address], | | | | | | [place] [address] | | | | + + + + + + + + | Specimen | + + | Blood specimen | | (specimen) | + + + + + + + | Performing | Address | City/State/Zipcode | Phone Number | | Organization | | | | + + + + + | BETH [facility] | [address] | [place] [address] | | | [facility] | | | | | [...] ENCE | | | Counted | by [facility] [address], | | SACRED | | | | [place] [address] | | HEART | | | |Performed by [facility] [address], [place] [address] | | MEDICA L | | | [...] + | BETH LIZ | [address] [place] [address]. | [place] [address] | | | [facility] | | | | | [...] LUIS CE | | | | by [facility] [address], | | SACRED | | | | [place] [address] | | HEART | | | |Performed by [facility] [address], [place] [address] | | MEDICAL | | | | [...] SACRED | [address] | [place] [address] | | | [facility] | | | | | [...] | | LABORATORY | | | | [facility] [address], | | [place] | | | | [place] [address] | | | | + + + + + + + + | Specimen | + + | Blood specimen | | (specimen) | + + + + + + + | Performing | Address | City/State/Zipcode | Phone Number | | Organization | | | | + + + + + | J[facility]SE [facility] | [address] | [place] [address] | | | [facility] | | | | | [...] | | | POC | Performed by [facility] [address] | | SACRED | | | | [address], [place] | | HEART | | | | [address] | | MEDICAL | | | | [...] | [address] | [place] [address] | | | [facility] MEDICAL CENTER | [...] | | | POC | Performed by [facility] [address] | | SACRED | | | | [address] [place] | | HEART | | | | [address] | | MEDICAL | | | | [...] + | [facility] | [address] | [place] [address] | | | [facility] | | | | | [...] | PROVIDENCE | | | POC | [facility] [address], | | SACRED | | | | [place] [address] | | HEART | | | |Performed by [facility] [address], [place] [address] | | MEDICAL | | | | [...] SACRED | [address] | [place] [address] | | | HEART [facility] | | | | | [...] | | LABORATORY | | | | [facility] [address], | | [place] | | | | [place] [address] | | | | + + + + + + + + | Specimen | + + | Blood specimen | | (specimen) | + + + + + + + | Performing | Address | City/State/Zipcode | Phone Number | | Organization | | | | + + + + + | [facility] | [address] | [place] [address] | | | [facility] | | | | | [...] PROVIDE NCE | | | | by [facility] [address], | | SACRED | | | | [place] [address] | | HEART | | | |Performed by [facility] [address], [place] [address] | | MEDICAL | | | | [...] + | BETH [facility]Z | [address] | [place] [address] | | | [facility] | | | | | [...] | | | POC | Performed by [facility] [address] | | SACRED [...] | [place] | | | HEART [facility] | | | | | [...] | | | POC | Performed by [facility] [address] | | SACRED | | | | [address] [place] | | HEART | | | | [address] | | MEDICAL | | | | [...] + | BETH [facility]Z | [address] | [place] [address] | | | [facility] | | | | | [...] | PROVIDENCE | | | POC | [facility] [address], | | SACRED | | | | [place] [address] | | HEART | | | |Performed by [facility] [address], [place] [address] | | MEDICAL | | | | [...] + + | BETH [facility] | [address] | [place], [place] | | | [facility]ICAL [facility]ENTER [...] | PROVIDENCE | | | POC | [facility] [address], | | SACRED | | | | [place] | | HEART | | | |Performed by [facility] [address], [place] | | MEDICAL | | | [...] + + | B[facility] | [address] | [place] [address] | | | [facility] | | | | | [...] by | | | | | | [facility] [address], | | | | | | [place] [address] | | | | + + + + + + + + | Specimen | + + | Blood specimen | | (specimen) | + + + + + + + | Performing | Address | City/State/Zipcode | Phone Number | | Organization | | | | + + + + + | [facility] | [address] | [place] [address] | | | [facility] | | | | | [...] | | | POC | Performed by [facility] [address] | | SACRED [...] + + + + + | [facility] | [address] | [place] [address] | | | HEART [facility] | | | | | [...] | | | POC | Performed by [facility] [address] | | SACRED | | | | [address] [place] | | HEART | | | | [address] | | MEDICAL | | | | [...] + + | BETH [facility]Z | [address] | [place] [address] | | | [facility] | | | | | [...] | | | POC | Performed by [facility] [address] | | SACRED [...] [address] | [place] [address] | | | HEART [facility] | | | | | [...] PROVIDENCE | | | | Performed by [facility] [address] | | SACRED | | | | [address] [place], [place] | | HEART | | | | [address] | | MEDICAL | | | | [...] + + | [facility] | [address] | [place] [address] | | | [facility] | | | | | [...] | | | POC | Performed by [facility] [address] | | SACRED | | | | [address], [place], [place] | | HEART | | | | [address] | | MEDICAL | | | | [...] SACRED | [address] | [place] [address] | | | HEART MEDICAL CENTER | [...] by | | | | | | [facility] [address], | | | | | | [place] [address] | | | | + + + + + + + + | Specimen | + + | Blood specimen | | (specimen) | + + + + + + + | Performing | Address | City/State/Zipcode | Phone Number | | Organization | | | | + + + + + | [facility] | [address] | [place] [address] | | | [facility] | | | | | [...] | 11 (L)Comment: eGFR<60 | >=90 | [facility] | | | GFR | consistent with impaired | mL/min/1.73m2 | SACRED | | | | kidney function.For | | HEART | | | | Americans, | | MEDICAL | | | | multiply the calculated | | CENTER | | | | GFR by 1.210Performed by | | LABORATORY | | | | [facility] [address], | | [place] | | | | [place] [address] | | | | + + + + + + + + | Specimen | + + | Blood specimen | | (specimen) | + + + + + + + | Performing | Address | City/State/Zipcode | Phone Number | | Organization | | | | + + + + + | [facility] | [address] | [place] [address] | | | [facility] | | | | | [...] PROVIDE NCE | | | | by [facility] [address] [address], | | SACRED | | | | [place], [place] | | HEART | | | |Performed by [facility] [address], [place], [place] | | MEDICAL | | | [...] + + | [facility] | [address] | [place], [place] | | | [facility] [...] CE | | | B-12 | by [facility] [address], | | SACRED | | | | [place] [address] | | HEART | | | |Performed by [facility] [address], [place] [address] | | MEDICAL | | | | [...] + + | [facility] | [address] | [place] [address] | | | [facility] | | | | | [...] by | | | | | | [facility] [address], | | | | | | [place] [address] | | | | + + + + + + + + | Specimen | + + | Blood specimen | | (specimen) | + + + + + + + | Performing | Address | City/State/Zipcode | Phone Number | | Organization | | | | + + + + + | BETH LIZ | [address] | [place] [address] | | | [facility] | | | | | [...] | | | POC | Performed by [facility] [address] | | SACRED | | | | [address] [place] | | HEART | | | | [phone] | | MEDICAL | | | | [...] [address] | [place] [address] | | | [facility] | | | | | [...] | | | POC | Performed by [facility] [address] | | SACRED | | | | [address], [place] | | HEART | | | | [phone] | | MEDICAL | | | | [...] + + | BETH LIZ | [address] | [place] [address] | | | [facility] | | | | | [...] | | | POC | Performed by [facility] [address] | | SACRED | | | | [address] [place] | | HEART | | | | [phone] | | MEDICAL | | | | [...] + + | BETH LIZ | [address] | [place] [address] | | | [facility] | | | | | [...] PROVIDE NCE | | | | by [facility] [address], | | SACRED | | | | [place] [address] | | HEART | | | |Performed by [facility] [address], [place] [address] | | MEDICAL | | | | [...] + + + + + | JIMRENUKA AGUSTO | [address] | [place] [address] | | | [facility] | | | | | [...] LUIS CE | | | | by [facility] [address], | | SACRED | | | | [place], [place] | | HEART | | | |Performed by [facility] [address], [place] | | MEDICAL | | | [...] SACREVANS | [address] | [place], [place] | | | HEART [facility] | | | | | [...] | | LABORATORY | | | | [facility] [address], | | [place] | | | | [place] [address] | | | | + + + + + + + + | Specimen | + + | Blood specimen | | (specimen) | + + + + + + + | Performing | Address | City/State/Zipcode | Phone Number | | Organization | | | | + + + + + | [facility] | [address] | [place] [address] | | | [facility] | | | | | [...] | | | POC | Performed by [facility] [address] | | SACRED | | | | [address] [place] | | HEART | | | | [phone] | | MEDICAL | | | | [...] + + | BETH LIZ | [address] | [place] [address] | | | [facility] | | | | | [...] | | | POC | Performed by [facility] [address] | | SACRED [...] [address] | [place] [address] | | | HEART [facility] | | | | | [...] | SACRED | | | Total | [place] [address] [address] | | HEART | | | | [address] [place], [place] | | MEDICAL | | | | [phone] | | CENTER | | | | Lauro HOLDEN Ph:[phone] | | LABORATORY | | | | [...] + | JIMJOSE ADora LIZ | [address] | [place] [address] | | | [facility] | | | | | [...] | SACRED | | | | by [facility] [address], | | HEART | | | | [place] [address] | | MEDICAL | | | | [...] [address] | [place] [address] | | | [facility] | [...] | SACRED | | | | by [facility] [address], | | HEART | | | | [place] | | MEDICAL | | | [...] SACRED | [address] | [place], [place] | | | [facility] | | | | | [...] | MEDICAL | | | | by [facility] [address], | | SANDERS | | | | [place] [address] | | LABORATORY | | | |Performed by [facility] [address], [place] [address] | | CERNER | | | | [...] + + | BETH LIZ | [address] | [place] [address] | | | [facility] | | | | | [...] | | | POC | Performed by [facility] [address] | | SACRED | | | | [address], [place] | | HEART | | | | [phone] | | MEDICAL | | | | [...] + + + + | JIMJOSE ADora DENVEREVANS | [address] | [place] [address] | | | [facility] | | | | | [...] | | | POC | Performed by [facility] [address] | | SACRED | | | | [address] [place], [place] | | HEART | | | | [address] | | MEDICAL | | | | [...] + + | [facility] | [address] | [place] [address] | | | [facility] | [...] CENTER | | | | 3.5Performed by [facility] [address] | | LABORATORY | | | | [address], [place] | | [place] | | | | [phone] | | | | + + + + + + + + | Specimen | + + | Blood specimen | | (specimen) | + + + + + + + | Performing | Address | City/State/Zipcode | Phone Number | | Organization | | | | + + + + + | [facility] | [address] | [place] [address] | | | [facility] | | | | | [...] | | | Immature | Performed by [facility] [address] | K/uL | SACRED | | | Granulocyte | [address] [place] | | HEART | | | s | [phone] | | MEDICAL | | | | [...] | JIMJOSE ADora LIZ | [address] | [place] [address] | | | [facility] | | | | | [...] | | LABORATORY | | | | [facility] [address], | | [place] | | | | [place] [address] | | | | + + + + + + + + | Specimen | + + | Blood specimen | | (specimen) | + + + + + + + | Performing | Address | City/State/[facility] | Phone Number | | Organization | | | | + + + + + | BETH LIZ | [address] | [place] [address] | | | [facility] | | | | | [...] | | | | First dose on [facility] 03/30/19 at 1130 | | AM [...] | | | | First dose on Wed03/30/19 at 2100 | | PM PDT | | | | + +-------+ +--------+---+---+ + +---+ | | | + +---+ | hydrALAZINE (APRESOLINE) | | | injection 5 mg 5 mg, | | | Intravenous, EVERY 4 HOURS PRN, | | | sbp> 180, Starting Wed03/27/19 at | | | 1841 | | [...] scheduled: AC, NPO, Daytime | | | 1619-0360 Use NIGHT DOSE for | | | doses scheduled: HS, 3AM, | | | Nighttime [id number] If the BG is | | | [...]
--- OUTSIDE RECORDS SUMMARY | ~2019-09-08 | XMS | Encounter Summary ---
Demographics + + + | Address | [address] | | | [place] [address] | + + + | Home Phone [...] + | Author | [facility] | | | and [place] | + + + | Organization | [facility] | | | and [place] | + + + | Address | Unknown | + + + | Phone | Unavailable | + + + Support + + + + + | Name | Relationship | Address | Phone | + + + + + | India Tilley | ECON | [address] | | | | | [place], [place] | | | | | [address] | | + + + + + | Yina La | ECON | Unknown | | + + + + + | Yina Peterson | ECON | Unknown | | + + + + + | Leatha Casillas | ECON | Unknown | | + + + + + Care Team Providers + +------+ + | Care Sports Agent Name | Role | Phone | + +------+ + PCP | Unavailable | + +------+ + Reason for Referral Diagnostic/Screening (Urgent) + +--------+ + + + + | Status | Reason | Specialty | Diagnoses / | Referred By | Referred To | | | | | Procedures | Contact | Contact | + +--------+ + + + + | Authorizatio | | Radiology | Diagnoses | [facility] | [address] | | n not | | | Infection | Nick Miller | [address] [place]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 | [place], | Joe Diaz, | | | | | 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 [address] | [place] [address] | | | | | al disc | [address] | Phone: | | | | | (pyogenic), | [place], [place] | [phone] | | | | | thoracic | [address] | Fax: | | | | | region (HCC) | Phone: | [phone] | | | | | | [phone] | | | | | | 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: | | | | | | s of | [phone] | | | | | | thoracic | | | | | | | vertebra | | | | | | | (HCC) | | | | | | | Procedures | | | | | | | IR Biopsy | | | | | | | Bone Deep | | | | | | | CT Guided | | | | | | | Biopsy Bone | | | | | | | Superficial | | | + +--------+ + + + + Reason for Visit + + + | Reason | Comments | + + + | Follow-up | Infection of intervertebral disc (pyogenic), thoracic region | + + + Encounter Details +--------+---------+ + + + | Date | Type | Department | Care Team | Description | +--------+---------+ + + + | 06/13/ | Office | [facility] | Fabiana Miller, | 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 | 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 | Nick Apodaca MD | intervertebral disc | | | | [address] | [address] | (pyogenic), thoracic | | | | [place], [place] | [place] [address] | region (HCC) | | | | [address] | [phone] | (Primary Dx); | | | | [phone] | | Osteomyelitis of | | | [...] pain; | | | | | | ESRD on dialysis | | | | | | ([facility]); Central | | | | | | venous catheter in | | | | | | place | +--------+---------+ + + + Social History [...] + + + | Blood Pressure | 217/92 | 06/13/2019 1:36 PM | | | | | PDT | | + + + + + | Pulse | 70 | 06/13/2019 1:36 PM | | | | | PDT | | + + + + + | Temperature | 36.6 C (97.9 F) | 06/13/2019 1:36 PM | | | | | PDT | | + + + + + | Respiratory Rate | 16 | 06/13/2019 1:36 PM | | | | | PDT | | + + + + + | Oxygen Saturation | 97% | 06/13/2019 1:36 PM | | | | | PDT | | + + + + + | Inhaled Oxygen | - | - | | | Concentration | | | | + + + + + | Weight | 68 kg (150 lb) | 06/13/2019 1:36 PM | | | | | PDT | | + + + + + | Height | 172.7 cm (5' 8") | 06/13/2019 1:36 PM | | | | | PDT | | + + + + + | Body Mass Index | 22.81 | 06/13/2019 1:36 PM | | | | | PDT [...] documented as of this encounter Progress Notes Nick Pritchard MD - 06/13/2019 2:00 PM PDT [facility] Service: Infectious Diseases Outpatient Follow Up Note CHIEF COMPLAINT Follow up on discitis/osteomyelitis HISTORY OF PRESENT ILLNESS The patient is a 74 y.o.-year-old female presenting today for follow up. History obtained from chart review and the patient. The patient presents to clinic for follow-up. She was seen in clinic for evaluation regard ing history of discitis/osteomyelitis of the thoracic spine. For additional details about h er history, please refer to my initial note dated May 18, 2019. At that time, the patient was recommended to undergo repeat MRI and also repeat CT-guided b iopsy to evaluate for osteomyelitis. Unfortunately, the patient ended up admitted to [facility] in [place] soon aft er that due to fluid overload and CHF exacerbation. I did receive a call from her team of doctors during the patient's hospital stay and I jos mmended to transfer the patient to [facility] or [facility] f or diagnostic work-up for the patient's spinal infectious process. However, the patient was not transferred, the patient did not have repeat CT-guided biopsy. The patient was not sta rted on antibiotics. The patient was told to follow-up as an outpatient. The patient states that she continues to have back pain. 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 She denies fevers, chills, night sweats. She also still has a central sade e which was not addressed during her recent hospitalization. She is not sure who is handlin g this central line. She does not remember which company provided IV antibiotic therapy bef ore. She is states that she is not getting line care such as flushing or heparin locks. As far as her infectious process, she continued to have elevated inflammatory markers, 3 we eks ago her CRP was 51.8, sedimentation rate was 48. Most recently CRP has gone down to 1.0 , and sedimentation rate is 53 from June 13, 2019. She continues to report lower back pain. Again, she denies fevers, night sweats. PAST MEDICAL HISTORY Patient Active Problem List [...] right femur probable Discitis of thoracic region Hypoxia Osteomyelitis of thoracic region PAST SURGICAL HISTORY Past Surgical History: Procedure Laterality Date APPENDECTOMY EYE SURGERY 2009 HIP SURGERY Right 12/04/2018 Procedure: ORIF HIP W/CANNULATED SCREWS; Surgeon: Scott Koroma MD; Location: [facility] MAIN OR HYSTERECTOMY MASTECTOMY 2005 left ear NOSE SURGERY 2008 OTHER SURGICAL HISTORY Right 03/28/2019 Procedure: TUNNEL PICC LINE PLACEMENT-6fr 22cm BARD Power Line; Surgeon: Jose Jiménez MD; Location: [facility] INTERVENTIONAL RADIOLOGY REMOVAL TUNNELED CATHETER Right 04/04/[address] Stephenson SHUNT PLACEMENT/INSERTION N/A 11/08/2017 Procedure: Tunneled Hemodialysis Catheter Placement; Surgeon: Nora Leo MD; Location : [facility] MAIN OR SHUNT PLACEMENT/INSERTION Right 02/04/2018 Procedure: INSERTION SHUNT HEMODIALYSIS W/ PERMACATH; Surgeon: Heather Navarro MD; L ocation: [facility] MAIN OR VEIN SURGERY Right 01/04/2018 Procedure: Right Transposed Basilic Vein to Proximal Radial Artery; Surgeon: Santos Stephenson MD, FACS; Location: [facility] MAIN OR SOCIAL HISTORY Social History Socioeconomic History Marital status: Single [...] file Social History Narrative Not on file FAM. HISTORY Family History Problem Relation Age of Onset Diabetes Other grandfather Diabetes Other grandmother Cancer Sister MEDICATIONS: Reviewed with the patient today. Patient did not bring medication list or bottles to clinic today. Current Outpatient Medications: acetaminophen (TYLENOL) 500 mg tablet, Take 500 mg by mouth as needed for Pain., Disp: , Rfl: albuterol 90 mcg/puff inhaler, Inhale 2 puffs into the lungs 4 times daily as needed f or Shortness of Breath., Disp: , Rfl: amLODIPine (NORVASC) 5 mg tablet, Take 1 tablet by mouth 2 times daily., Disp: 60 tabl et, Rfl: 0 ARTIFICIAL TEAR SOLUTION OP, Place 1-2 drops [...] m eals)., Disp: 180 capsule, Rfl: 0 cetirizine (ZYRTEC) 10 mg tablet, Take 10 mg by mouth Daily., Disp: , Rfl: Cholecalciferol 4000 units TABS, Take 4,000 Units by mouth Daily., Disp: , Rfl: cloNIDine (CATAPRES) 0.3 mg/24 hr patch, Place 1 patch onto the skin Once a week., Dis p: 4 patch, Rfl: 11 epoetin karthik (EPOGEN, PROCRIT) 4,000 units/mL injection, Inject 0.85 mLs into the vein Three times a week. (Patient not taking: Reported on 06/13/2019), Disp: , Rfl: furosemide (LASIX) 80 mg tablet, Take 1 tablet by mouth Daily., Disp: 90 tablet, Rfl: 3 gabapentin (NEURONTIN) 100 mg capsule, Take 2 capsules by mouth every morning. (Patien t not taking: Reported on 06/13/2019), Disp: , Rfl: Insulin Pen Needle 31G [...] mornin g (before breakfast)., Disp: , Rfl: losartan (COZAAR) 100 MG tablet, Take 1 tablet by mouth Daily., Disp: 30 tablet, Rfl: 0 NIFEdipine (PROCARDIA XL) 90 mg ER tablet, Take 1 tablet by mouth Daily. (Patient not taking: Reported on 06/13/2019), Disp: 90 tablet, Rfl: 3 olopatadine (PATANOL) 0.1% ophthalmic solution, [...] [Naproxen] REVIEW OF SYSTEMS 12+ systems reviewed. Negative except as per HPI. PHYSICAL EXAM Vital Signs: BP (!) 217/92 | Pulse 70 | Temp 36.6 C (97.9 F) (Tympanic) | Resp 16 | Ht 1.727 m ( 5' 8") | Wt 68 kg (150 lb) | SpO2 97% | BMI 22.81 kg/m General Appearance: Alert, cooperative, no distress. Head: Normocephalic, without obvious abnormality, atraumatic. Lips, mucosa, and tongue normal; dentition normal; no thrush present. Eyes: PERRL, conjunctiva/corneas clear, EOM's intact. Throat: Oropharynx without exudates. Neck: Supple, symmetrical, trachea midline, no adenopathy; thyroid: no enlargement/tenderness/nodules; no carotid bruit or JVD Back: Able to adopt a more erect posture now, but the patient still has significant pain in the paravertebral musculature upon palpation. Lungs: Clear to auscultation bilaterally, respirations unlabored Chest Wall: No tenderness or deformity Heart: Regular rate. No murmurs. Abdomen: Soft, non-tender, bowel sounds active all four quadrants, no masses, no organomegaly Extremities: Extremities normal, atraumatic, no cyanosis or edema Pulses: 2+ and symmetric all extremities Skin: Skin color, texture, turgor normal, no rashes or lesions Lymph nodes: Cervical, supraclavicular, and axillary nodes normal Neurologic: Alert, oriented, no focal deficits. Venous access: Venous access: CVC. REVIEW OF LABS: All labs were reviewed. Results for orders placed or performed during the hospital encounter of 05/20/19 Culture, MRSA Result Value Ref Range Culture Negative for MRSA by chromogenic agar method. Culture 2+ Coagulase positive Staphylococcus Culture, Fungus, Smear Result Value Ref Range Fungus Stain Final report Culture, Body Fluid, Aerobe Result Value Ref Range Culture No Growth Gram Stain Result 4+ White Blood Cells Gram Stain Result No organisms seen Culture, Body Fluid, Anaerobe Result Value Ref Range Culture No anaerobes isolated. Basic Metabolic Panel Result Value Ref Range Na 134 (L) 136 - 145 mmol/L K 4.7 3.4 - 5.1 mmol/L Cl 99 98 - 107 mmol/L CO2 25 20 - 31 mmol/L Anion Gap 10 3 - 16 mmol/L Glucose 109 (H) 60 - 106 mg/dL BUN 46 (H) 9 - 23 mg/dL Creatinine 7.11 (H) 0.55 - 1.02 mg/dL eGFR if not 6 (L) >=60 mL/min/1.73m2 Calcium 8.5 (L) 8.7 - 10.4 mg/dL BUN/Creatinine Ratio 6.5 Hepatic Function Panel Result Value Ref Range Bilirubin Total 0.3 0.3 - 1.2 mg/dL Total Protein 6.8 5.7 - 8.2 g/dL Albumin 3.2 3.2 - 4.8 g/dL AST 12 0 - 34 U/L ALT 7 (L) 10 - 49 U/L Alkaline Phosphatase 53 46 - 116 U/L Globulin 3.6 2.1 - 3.8 g/dL Albumin/Globulin Ratio 0.9 0.8 - 1.9 Bilirubin, Direct 0.10 0.00 - 0.30 mg/dl B Type Natriuretic Peptide Result Value Ref Range BNP >5,000 (H) <100 pg/mL Magnesium Result Value Ref Range Magnesium 2.2 1.6 - 2.6 mg/dL Phosphorus Result Value Ref Range Phosphorus 8.8 (HH) 2.4 - 5.1 mg/dL Troponin I Result Value Ref Range Troponin I 0.06 (H) <0.06 ng/mL CBC with Differential Result Value Ref Range WBC 6.9 4.0 - 11.0 K/uL RBC 2.74 (L) 3.70 - 5.20 M/uL Hemoglobin 8.9 (L) 11.5 - 16.0 g/dL Hematocrit 27.2 (L) 34.0 - 47.0 % MCV 99.3 83.0 - 101.0 fL MCH 32.5 28.0 - 35.0 pg MCHC 32.7 32.0 - 36.0 g/dL RDW-CV 14.1 <15.0 % RDW-SD 51.0 (H) 35.1 - 46.3 fL Platelet Count 256 140 - 440 K/uL MPV 9.7 6.5 - 12.4 fL % Neutrophils 72.5 45.0 - 82.0 % % Lymphocytes 15.8 (L) 20.0 - 45.0 % % Monocytes 5.1 4.0 - 12.0 % % Eosinophils 5.6 (H) 0.0 - 5.0 % % Basophils 0.7 0.0 - 1.0 % % Immature Granulocytes 0.3 0.0 - 0.4 % Absolute Neutrophils 5.02 1.80 - 8.50 K/uL Absolute Lymphocytes 1.09 0.60 - 3.20 K/uL Absolute Monocytes 0.35 0.00 - 1.00 K/uL Absolute Eosinophils 0.39 0.00 - 0.40 K/uL Absolute Basophils 0.05 0.00 - 0.10 K/uL Absolute Immature Granulocytes 0.02 0.00 - 0.03 K/uL % nRBC 0 0 - 2 per 100 WBCs Absolute nRBC 0.00 0.00 - 0.01 K/uL Magnesium Result Value Ref Range Magnesium 2.3 1.6 - 2.6 mg/dL Protime INR Result Value Ref Range Prothrombin Time 14.7 (H) 11.3 - 13.9 seconds INR 1.2 (H) 0.9 - 1.1 TSH Result Value Ref Range TSH 8.54 (H) 0.55 - 4.78 uIU/mL Vitamin B-12 Result Value Ref Range VITAMIN B-12 564 156 - 672 pg/mL POC Blood Gases Result Value Ref Range Specimen Source Vein pH, POC 7.356 7.3 - 7.45 HCO3, POC 25.7 21.0 - 28.0 mmol/L TCO2, POC 27.1 22.0 - 29.0 mmol/L Base Excess, POC -0.1 -2.0 - 3.0 mmol/L Base Excess, Extracellular fluid, POC 0.2 -2.0 - 3.0 mmol/L O2 Sat, POC 60 (L) 90 - 100 % PCO2, POC 45.9 (H) 35 - 45 mmHg pO2, POC 33 (L) 60 - 750 mmHg C-Reactive Protein Result Value Ref Range CRP 51.20 (H) <10.00 mg/L Sedimentation Rate Result Value Ref Range ESR 52 (H) <30 mm/hr Procalcitonin Result Value Ref Range Procalcitonin 0.11 <=0.50 ng/mL Comment Renal Function Panel Result Value Ref Range Na 133 (L) 136 - 145 mmol/L K 5.1 3.4 - 5.1 mmol/L Cl 99 98 - 107 mmol/L CO2 25 20 - 31 mmol/L Anion Gap 9 3 - 16 mmol/L Glucose 105 60 - 106 mg/dL BUN 48 (H) 9 - 23 mg/dL Creatinine 7.26 (H) 0.55 - 1.02 mg/dL eGFR if not 6 (L) >=60 mL/min/1.73m2 Calcium 8.6 (L) 8.7 - 10.4 mg/dL Albumin 3.1 (L) 3.2 - 4.8 g/dL Phosphorus 9.0 (HH) 2.4 - 5.1 mg/dL BUN/Creatinine Ratio 6.6 C-Reactive Protein Result Value Ref Range CRP 51.80 (H) <10.00 mg/L Sedimentation Rate Result Value Ref Range ESR 48 (H) <30 mm/hr Renal Function Panel Result Value Ref Range Na 132 (L) 136 - 145 mmol/L K 4.3 3.4 - 5.1 mmol/L Cl 99 98 - 107 mmol/L CO2 28 20 - 31 mmol/L Anion Gap 5 3 - 16 mmol/L Glucose 82 60 - 106 mg/dL BUN 29 (H) 9 - 23 mg/dL Creatinine 4.82 (H) 0.55 - 1.02 mg/dL eGFR if not 9 (L) >=60 mL/min/1.73m2 Calcium 8.7 8.7 - 10.4 mg/dL Albumin 3.3 3.2 - 4.8 g/dL Phosphorus 6.6 (H) 2.4 - 5.1 mg/dL BUN/Creatinine Ratio 6.0 CBC with Differential Result Value Ref Range WBC 5.6 4.0 - 11.0 K/uL RBC 2.78 (L) 3.70 - 5.20 M/uL Hemoglobin 8.9 (L) 11.5 - 16.0 g/dL Hematocrit 27.6 (L) 34.0 - 47.0 % MCV 99.3 83.0 - 101.0 fL MCH 32.0 28.0 - 35.0 pg MCHC 32.2 32.0 - 36.0 g/dL RDW-CV 13.8 <15.0 % RDW-SD 50.0 (H) 35.1 - 46.3 fL Platelet Count 256 140 - 440 K/uL MPV 9.4 6.5 - 12.4 fL % Neutrophils 70.6 45.0 - 82.0 % % Lymphocytes 15.7 (L) 20.0 - 45.0 % % Monocytes 5.7 4.0 - 12.0 % % Eosinophils 6.9 (H) 0.0 - 5.0 % % Basophils 0.7 0.0 - 1.0 % % Immature Granulocytes 0.4 0.0 - 0.4 % Absolute Neutrophils 3.97 1.80 - 8.50 K/uL Absolute Lymphocytes 0.88 0.60 - 3.20 K/uL Absolute Monocytes 0.32 0.00 - 1.00 K/uL Absolute Eosinophils 0.39 0.00 - 0.40 K/uL Absolute Basophils 0.04 0.00 - 0.10 K/uL Absolute Immature Granulocytes 0.02 0.00 - 0.03 K/uL % nRBC 0 0 - 2 per 100 WBCs Absolute nRBC 0.00 0.00 - 0.01 K/uL Cell Count with Differential, Body Fluid Result Value Ref Range Specimen Source Pleural Fluid, Left BF Color Yellow (A) (none) BF Appearance Clear Clear BF Nucleated cells 110 0 - 150 cells/uL BF RBC <2,000 Reference Range Not Established cells/uL % Mononuclear Cells, Body Fluid 89.1 % BF Polynuclear % 10.9 % Protein, Body Fluid Result Value Ref Range Specimen Source Pleural Fluid, Left Protein, BF 3.1 g/dL Lactate Dehydrogenase, Body Fluid Result Value Ref Range LDH, BODY FLUID 117 U/L Specimen Source Pleural Fluid, Left Renal Function Panel Result Value Ref Range Na 133 (L) 136 - 145 mmol/L K 4.4 3.4 - 5.1 mmol/L Cl 98 98 - 107 mmol/L CO2 26 20 - 31 mmol/L Anion Gap 9 3 - 16 mmol/L Glucose 73 60 - 106 mg/dL BUN 35 (H) 9 - 23 mg/dL Creatinine 5.83 (H) 0.55 - 1.02 mg/dL eGFR if not 7 (L) >=60 mL/min/1.73m2 Calcium 8.2 (L) 8.7 - 10.4 mg/dL Albumin 3.0 (L) 3.2 - 4.8 g/dL Phosphorus 8.0 (HH) 2.4 - 5.1 mg/dL BUN/Creatinine Ratio 6.0 CBC with Differential Result Value Ref Range WBC 4.8 4.0 - 11.0 K/uL RBC 2.69 (L) 3.70 - 5.20 M/uL Hemoglobin 8.6 (L) 11.5 - 16.0 g/dL Hematocrit 26.5 (L) 34.0 - 47.0 % MCV 98.5 83.0 - 101.0 fL MCH 32.0 28.0 - 35.0 pg MCHC 32.5 32.0 - 36.0 g/dL RDW-CV 13.7 <15.0 % RDW-SD 48.9 (H) 35.1 - 46.3 fL Platelet Count 230 140 - 440 K/uL MPV 9.6 6.5 - 12.4 fL % Neutrophils 68.5 45.0 - 82.0 % % Lymphocytes 17.0 (L) 20.0 - 45.0 % % Monocytes 6.9 4.0 - 12.0 % % Eosinophils 6.4 (H) 0.0 - 5.0 % % Basophils 0.8 0.0 - 1.0 % % Immature Granulocytes 0.4 0.0 - 0.4 % Absolute Neutrophils 3.29 1.80 - 8.50 K/uL Absolute Lymphocytes 0.82 0.60 - 3.20 K/uL Absolute Monocytes 0.33 0.00 - 1.00 K/uL Absolute Eosinophils 0.31 0.00 - 0.40 K/uL Absolute Basophils 0.04 0.00 - 0.10 K/uL Absolute Immature Granulocytes 0.02 0.00 - 0.03 K/uL % nRBC 0 0 - 2 per 100 WBCs Absolute nRBC 0.00 0.00 - 0.01 K/uL Renal Function Panel Result Value Ref Range Na 134 (L) 136 - 145 mmol/L K 4.7 3.4 - 5.1 mmol/L Cl 100 98 - 107 mmol/L CO2 24 20 - 31 mmol/L Anion Gap 10 3 - 16 mmol/L Glucose 75 60 - 106 mg/dL BUN 40 (H) 9 - 23 mg/dL Creatinine 6.78 (H) 0.55 - 1.02 mg/dL eGFR if not 6 (L) >=60 mL/min/1.73m2 Calcium 8.2 (L) 8.7 - 10.4 mg/dL Albumin 3.0 (L) 3.2 - 4.8 g/dL Phosphorus 8.1 (HH) 2.4 - 5.1 mg/dL BUN/Creatinine Ratio 5.9 CBC with Differential Result Value Ref Range WBC 4.6 4.0 - 11.0 K/uL RBC 2.66 (L) 3.70 - 5.20 M/uL Hemoglobin 8.6 (L) 11.5 - 16.0 g/dL Hematocrit 25.9 (L) 34.0 - 47.0 % MCV 97.4 83.0 - 101.0 fL MCH 32.3 28.0 - 35.0 pg MCHC 33.2 32.0 - 36.0 g/dL RDW-CV 13.7 <15.0 % RDW-SD 49.1 (H) 35.1 - 46.3 fL Platelet Count 217 140 - 440 K/uL MPV 9.7 6.5 - 12.4 fL % Neutrophils 68.3 45.0 - 82.0 % % Lymphocytes 17.5 (L) 20.0 - 45.0 % % Monocytes 5.9 4.0 - 12.0 % % Eosinophils 7.0 (H) 0.0 - 5.0 % % Basophils 1.1 (H) 0.0 - 1.0 % % Immature Granulocytes 0.2 0.0 - 0.4 % Absolute Neutrophils 3.13 1.80 - 8.50 K/uL Absolute Lymphocytes 0.80 0.60 - 3.20 K/uL Absolute Monocytes 0.27 0.00 - 1.00 K/uL Absolute Eosinophils 0.32 0.00 - 0.40 K/uL Absolute Basophils 0.05 0.00 - 0.10 K/uL Absolute Immature Granulocytes 0.01 0.00 - 0.03 K/uL % nRBC 0 0 - 2 per 100 WBCs Absolute nRBC 0.00 0.00 - 0.01 K/uL Vancomycin Level Result Value Ref Range Date of Last Dose Time of Last Dose Vancomycin Random 14.9 5.0 - 20.0 ug/mL Renal Function Panel Result Value Ref Range Na 135 (L) 136 - 145 mmol/L K 3.8 3.4 - 5.1 mmol/L Cl 99 98 - 107 mmol/L CO2 26 20 - 31 mmol/L Anion Gap 10 3 - 16 mmol/L Glucose 100 60 - 106 mg/dL BUN 21 9 - 23 mg/dL Creatinine 4.14 (H) 0.55 - 1.02 mg/dL eGFR if not 11 (L) >=60 mL/min/1.73m2 Calcium 8.6 (L) 8.7 - 10.4 mg/dL Albumin 3.1 (L) 3.2 - 4.8 g/dL Phosphorus 4.7 2.4 - 5.1 mg/dL BUN/Creatinine Ratio 5.1 RESULT 29, (REF) (RESULT ONLY) Result Value Ref Range Result Comment POC Glucose Result Value Ref Range Glucose, POC 116 (H) 70 - 109 mg/dL POC Glucose Result Value Ref Range Glucose, POC 104 70 - 109 mg/dL POC Glucose Result Value Ref Range Glucose, POC 90 70 - 109 mg/dL POC Glucose Result Value Ref Range Glucose, POC 84 70 - 109 mg/dL POC Glucose Result Value Ref Range Glucose, POC 112 (H) 70 - 109 mg/dL POC Glucose Result Value Ref Range Glucose, POC 87 70 - 109 mg/dL POC Glucose Result Value Ref Range Glucose, POC 94 70 - 109 mg/dL POC Glucose Result Value Ref Range Glucose, POC 72 70 - 109 mg/dL POC Glucose Result Value Ref Range Glucose, POC 138 (H) 70 - 109 mg/dL POC Glucose Result Value Ref Range Glucose, POC 77 70 - 109 mg/dL POC Glucose Result Value Ref Range Glucose, POC 82 70 - 109 mg/dL POC Glucose Result Value Ref Range Glucose, POC 73 70 - 109 mg/dL POC Glucose Result Value Ref Range Glucose, POC 110 (H) 70 - 109 mg/dL POC Glucose Result Value Ref Range Glucose, POC 183 (H) 70 - 109 mg/dL POC Glucose Result Value Ref Range Glucose, POC 140 (H) 70 - 109 mg/dL POC Glucose Result Value Ref Range Glucose, POC 125 (H) 70 - 109 mg/dL POC Glucose Result Value Ref Range Glucose, POC 102 70 - 109 mg/dL POC Glucose Result Value Ref Range Glucose, POC 113 (H) 70 - 109 mg/dL Type and Screen Result Value Ref Range ABO B Rh Type Positive Antibody Screen Negative *Note: Due to a large number of results and/or encounters for the requested time period, so me results have not been displayed. A complete set of results can be found in Results Review . Admission on 05/20/2019, Discharged on 05/25/2019 No results displayed because visit has over 200 results. CrCl cannot be calculated (Patient's most recent lab result is older than the maximum 3 day s allowed.). MICROBIOLOGY Microbiology Results (Last 14 Days by Collected Date with Culture/Sensitivity) No results found for the last 336 hours. IMAGING MRI of the spine obtained May 23, 2019 IMPRESSION - Overall unchanged appearance at T11-T12 with persistent bone marrow edema, irregular endplate changes, and paravertebral soft tissue edema, most compatible with history of discitis osteomyelitis. No abscess identified. ASSESSMENT AND RECOMMENDATIONS The patient is a 74 y.o.-year-old female with the following problems: Visit Diagnoses and Associated Orders: Estefani was seen today for follow-up. Diagnoses and all orders for this visit: Infection of intervertebral disc (pyogenic), thoracic region (HCC) - Sedimentation Rate; Future - C-Reactive Protein; Future - CT Guided Biopsy Bone Superficial; Future Osteomyelitis of thoracic vertebra (HCC) - Sedimentation Rate; Future - C-Reactive Protein; Future - CT Guided Biopsy Bone Superficial; Future Osteoarthritis, unspecified osteoarthritis type, unspecified site Other chronic pain ESRD on dialysis (HCC) Central venous catheter in place Patient with chronic history of back pain, with recent exacerbation of back pain that start ed around the time she had a right hip fracture and surgical therapy for the hip fracture. She reportedly finished a course of IV antibiotic therapy but had an unremarkable work-up in the past except for MRI which was "somewhat suspicious for osteomyelitis". The patient has not been on antibiotic therapy since early May. She has a recent MRI at that shows similar changes of possible discitis/osteomyelitis, and she continues to have elevation of inflammatory markers although with improvement of her CRP. I have recommended the patient 1 more time to pursue a repeat CT-guided vertebral biopsy to evaluate if she actually has infectious process or MRI changes are due to severe degenerati ve disease of the spine. Given that her previous work-up was completely negative. The patient was also advised to contact the provider who placed her central line in order t o have this removed as she will not receive any antibiotic therapy intravenously at the [facility]. She was educated about the risks of permanent central line and risk of bacteremia. We are hoping to get her repeat CT-guided procedure within the next 7 days. The patient wi shes to do this in [place] and we will explore that possibility, otherwise she was expla ined that she has to come to the [facility]. Side effects of medications, duration of therapy, prognosis and importance of adherence wer e discussed with the patient today. Follow up in 2 weeks. Nick Jung MD, MPH Infectious Diseases 06/13/19 document ed in this encounter Plan of Treatment + +---------+--------+ + + | Name | Type | Priori | Associated Diagnoses | Order Schedule | | | | ty | | | + +---------+--------+ + + | IR Biopsy Bone Deep | Imaging | KYLIE | Infection of | Expected: | | | | | intervertebral disc | 06/13/2019, Expires: | | | | | (pyogenic), thoracic | 06/13/2020 | | | | | region (HCC) | | | | | | Osteomyelitis of | | | | | | thoracic vertebra | | | | | | (HCC) | | + +---------+--------+ + + documented as of this encounter Results C-Reactive Protein (06/13/2019 3:12 PM PDT) + + + + + + | Component | Value | Ref Range | Performed | Pathologist | | | | | At | Signature | + + + + + + | CRP | 1.0 (H)Comment: Testing | <0.5 mg/dL | REFERENCE | | | | performed at [facility];[address] | | LAB | | | | [place] | | [address];[place] [address] | | LABORATORY | | + + + + + + + + | Specimen | + + | Blood | + + + + + + + | Performing | Address | City/State/Zipcode | Phone Number | | Organization | | | | + + + + + | REFERENCE LAB | [address] | [place] [address] | [phone] | | [facility] | Blvd. | | | | LABORATORY | | | | + + + + + | REFERENCE LAB | [address] [facility] | [place] [address] | | | [facility] | Blvd. | | | | LABORATORY | | | | + + + + + Sedimentation Rate (06/13/2019 3:12 PM PDT) + + + + + + | Component | Value | Ref Range | Performed | Pathologist | | | | | At | Signature | + + + + + + | ESR | 53 (H)Comment: Testing | 0 - 30 mm/Hr | REFERENCE | | | | performed at [facility];[address] | | LAB | | | | [place] | | [facility] | | | | Bl[address];[place] [address] | | LABORATORY | | + + + + + + + + | Specimen | + + | Blood | + + + + + + + | Performing | Address | City/State/Zipcode | Phone Number | | Organization | | | | + + + + + | REFERENCE LAB | [address] [place] [address] | [place] [address] | [phone] | | [facility] | Blvd. | | | | LABORATORY | | | | + + + + + | REFERENCE LAB | [address] [place] [address] | [place] [address] | | | [facility] | Blvd. | [...] Other chronic pain | + + | ESRD on dialysis (HCC) End stage renal disease | + + | Central venous catheter in place | + + documented in this encounter
--- OUTSIDE RECORDS SUMMARY | ~2019-09-08 | XMS | Encounter Summary ---
Demographics + + + | Address | [address] | | | [place] [address] | + + + | Home Phone [...] Author | [facility] | | | and [place] | + + + | Organization | [facility] | | | and [place] | + + + | Address | Unknown | + + + | Phone | Unavailable | + + + Support + + + + + | Name | Relationship | Address | Phone | + + + + + | India Tilley | ECON | [id number] | | | | | [place], [place] | | | | | [address] | | + + + + + | Yina La | ECON | Unknown | | + + + + + | Yina Peterson | ECON | Unknown | | + + + + + | Leatha Casillas | ECON | Unknown | | + + + + + Care Team Providers + +------+ + | Care Event Decorator Name | Role | Phone | + +------+ + PCP | Unavailable | + +------+ + Encounter Details +--------+ + + + + | Date | Type | Department | Care Team | Description | +--------+ + + + + | 10/22/ | Hospital | [facility] | Gopi Muñoz | Chronic kidney | | 2018 | Encounter | MED CTR [facility] | M, DO [address] | disease, stage V | | | | [address] [place] | [address] | ([facility]) | | | | [place], [place] | [place], [place] | | | | | [address] | [id number] | | | | | [phone] | | | | | | | [...] | | BILATERAL | | PST | ([facility]) | results section. | + +--------+ + [...]
--- OUTSIDE RECORDS SUMMARY | ~2019-09-08 | XMS | Encounter Summary ---
Demographics + + + | Address | [address] | | | [place] [address] | + + + | Home Phone | | + + + | Preferred Language | Unknown | + + + | Marital Status | Single | + + + | Moravian Affiliation | Unknown | + + + | Race | Unknown | + + + | Ethnic Group | Unknown | + + + Author + + + | Author | [facility] | | | and [place] | + + + | Organization | [facility] | | | and [place] | + + + | Address | Unknown | + + + | Phone | Unavailable | + + + Support + + + + + | Name | Relationship | Address | Phone | + + + + + | India Tilley | ECON | [id number] | | | | | [place], [place] | | | | | [address] | | + + + + + | Yina aL | ECON | Unknown | | + + + + + | Yina Peterson | ECON | Unknown | | + + + + + | Leatha Casillas | ECON | Unknown | | + + + + + Care Team Providers + +------+ + | Care Landcare Facilitator Name | Role | Phone | + +------+ + | Dangelo Renato Barr DIPESH | PCP | | + +------+ + Encounter Details +--------+ + + + + | Date | Type | Department | Care Team | Description | +--------+ + + + + | 07/12/ | Telephone | [facility] | [facility] [place] | | | 2019 | | CENTER INTRA OP | MD [address] | | | | | [address] | [place] | | | | | [place], [place] | [place] [address] | | | | | [address] | [phone] | | | | | [phone] | | | +--------+ + + + [...]
--- OUTSIDE RECORDS SUMMARY | ~2019-09-08 | XMS | Encounter Summary ---
Demographics + + + | Address | [address] | | | [place] [address] | + + + | Home Phone [...] Author | [facility] | | | and [place] | + + + | Organization | [facility] | | | and [place] | + + + | Address | Unknown | + + + | Phone | Unavailable | + + + Support + + + + + | Name | Relationship | Address | Phone | + + + + + | India Tilley | ECON | [address] | | | | | [place], [place] | | | | | [address] | | + + + + + | Yina La | ECON | Unknown | | + + + + + | Yina Peterson | ECON | Unknown | | + + + + + | Leatha Casillas | ECON | Unknown | | + + + + + Care Team Providers + +------+ + | Care Gas Reverser Name | Role | Phone | + +------+ + PCP | Unavailable | + +------+ + Encounter Details +--------+ + + + + | Date | Type | Department | Care Team | Description | +--------+ + + + + | 06/15/ | Telephone | [facility] | Ibis Arriola | | | 2019 | | [facility] | L, RN | | | | | [address] | | | | | | [place] | | | | | | [address] | | | | | | [phone] | | | +--------+ + + + [...]
--- OUTSIDE RECORDS SUMMARY | ~2019-09-08 | XMS | Encounter Summary ---
Demographics + + + | Address | [address] | | | [place] [address] | + + + | Home Phone [...] + + + | Author | [facility] | | | and [place] | + + + | Organization | [facility] | | | and [place] | + + + | Address | Unknown | + + + | Phone | Unavailable | + + + Support + + + + + | Name | Relationship | Address | Phone | + + + + + | India Tilley | ECON | [id number] | | | | | [place], [place] | | | | | [address] | | + + + + + | Yina La | ECON | Unknown | | + + + + + | Yina Peterson | ECON | Unknown | | + + + + + | Leatha Casillas | ECON | Unknown | | + + + + + Care Team Providers + +------+ + | Care Supervisor Machine Setter Name | Role | Phone | + [...] | renal | PA-C [address] | [address] | | | | | disease | [address] | [place], [place] | | | | | ([facility]) | [place] | [address] [facility] | | | | | Procedures | [address] | [facility] [place] | | | | | [place] ESRD | [facility] | [address] Phone: | | | | | [address]ATED [place] | [place] | [phone] | | | | | MONTHLY | [address] | Fax: | | | | | 20&/> YR OLD | Phone: | [phone] | | | | | 4/> VISITS | [phone] | | | | | | | Fax: | | | | | | | [phone] | | + +--------+ + + + + Encounter Details +--------+ + + + + | Date | Type | Department | Care Team | Description | +--------+ + + + + | 03/06/ | Off-Site | [facility] | Gopi Muñoz | End stage renal | | 2019 | Visit | NEPHROLOGY [address] | M, DO [address] | disease (HCC) | | | | [address] | [place] | (Primary Dx) | | | | [place] | [place], [place] | | | | | [address] | [address] | | | | | [phone] | | | +--------+ + + + [...]
--- OUTSIDE RECORDS SUMMARY | ~2019-09-08 | XMS | Encounter Summary ---
Demographics + + + | Address | [address] | | | [place] [address] | + + + | Home Phone [...] [facility] | | | and [place] | + + + | Organization | [facility] | | | and [place] | + + + | Address | Unknown | + + + | Phone | Unavailable | + + + Support + + + + + | Name | Relationship | Address | Phone | + + + + + | India Tilley | ECON | [address] | | | | | [place], [place] | | | | | [address] | | + + + + + | Yina La | ECON | Unknown | | + + + + + | Yina Peterson | ECON | Unknown | | + + + + + | Leatha Casillas | ECON | Unknown | | + + + + + Care Team Providers + +------+ + | Care Treating Inspector Name | Role | Phone | [...] + + + + | 03/11/ | Telephone | [facility] | Santos Stephenson | Vascular Access | | 2018 | | SURGERY [address] | MD Kinga, FACS [address] | Problem | | | | [place] | [facility] | | | | | [address] | [place] [address] | | | | | [phone] | [phone] | | | | | | | [...]
--- OUTSIDE RECORDS SUMMARY | ~2019-09-08 | XMS | Encounter Summary ---
Demographics + + + | Address | [address] | | | [place] [address] | + + + | Home Phone [...] + + + | Author | [facility] | | | and [place] | + + + | Organization | [facility] | | | and [place] | + + + | Address | Unknown | + + + | Phone | Unavailable | + + + Support + + + + + | Name | Relationship | Address | Phone | + + + + + | India Tilley | ECON | [address] | | | | | [place], [place] | | | | | [address] | | + + + + + | Yina La | ECON | Unknown | | + + + + + | Yina Peterson | ECON | Unknown | | + + + + + | Leatha Casillas | ECON | Unknown | | + + + + + Care Team Providers + +------+ + | Care Electronic Musical Instrument Repairer Name | Role | Phone | [...] + + | 07/26/ | Telephone | [facility] | Francisca Robert, | Surgery Appointment | | 2019 | | VASCULAR SURGERY | RN | | | | | [address] | | | | | | [place] | | | | | | [address] | | | | | | [phone] | | | +--------+ + + + [...]
--- OUTSIDE RECORDS SUMMARY | ~2019-09-08 | XMS | Encounter Summary ---
Demographics + + + | Address | [address] | | | [place] [address] | + + + | Home Phone [...] Author | [facility] | | | and Kamaljitana | + + + | Organization | [facility] | | | and [place] | + + + | Address | Unknown | + + + | Phone | Unavailable | + + + Support + + + + + | Name | Relationship | Address | Phone | + + + + + | India Tilley | ECON | [address] | | | | | [place], [place] | | | | | [address] | | + + + + + | Yina La | ECON | Unknown | | + + + + + | Yina Peterson | ECON | Unknown | | + + + + + | Leatha Casillas | ECON | Unknown | | + + + + + Care Team Providers + +------+ + | Care Protective Officer Name | Role | Phone | [...] | (Fax) | | | | | [address] | | | | | | [phone] | | | +--------+---------+ + + + [...] completion of IV abx Follow Up Appointments: [address] [address] [facility] [address] [facility] [address] [place] [id number] [facility] [address] [phone] Discharge Disposition: Home with Home Health Consultants This Admission: ID, Nephrology Hospital Course: 73-year-old female with history of ESRD on hemodialysis, hypertension, type 2 diabetes, hyp othyroidism, chronic anemia, hyperlipidemia with a history of stroke transferred from [facility] for evaluation of T11-T12 lesion noted on [...] had planned to go to SNF ([facility] in [place] - of which has accepted her [...] dialysis days after dialysis Osteomyelitis/Discitis of T11, [id number] -MRI spine 03/23/19: "mild paravertebral soft tissue [...] dialysis patient - has OP clinic in [place] already Macrocytic anemia likely secondary to-likely anemia [...] Value Units Date/Time Culture, Aerobic + Anaerobic [[id number]] Collected: 03/24/19 1514 Order Status: Completed Lab Status: Final result Updated: 03/29/1918 Specimen: Body Fluid from Vertebrae, Thoracic FINAL REPORT -- No Growth No anaerobes isolated Gram Stain Few Neutrophils No squamous epithelial cells seen No organisms seen Comment: Performed by [facility] [address] [place] [address] Gram Stain [[id number]] Collected: 03/24/19 151 Order Status: Canceled Lab Status: No result Updated: 03/24/191514 Specimen: Body Fluid from Vertebrae, Thoracic Culture, AFB Smear [[id number]] Collected: 03/24/191513 Order Status: Completed Lab Status: Preliminary result Updated: 03/25/19 1054 Specimen: Body Fluid from Vertebrae, Thoracic AFB Smear Result No Acid Fast Bacilli Seen Comment: Performed by [facility] [address] [place] [address] Culture, Fungus, Smear [[id number]] Collected: 03/24/19 151 Order Status: Completed Lab Status: Preliminary result Updated: 03/25/19 1039 Specimen: Body Fluid from Vertebrae, Thoracic CALCOFLUOR No fungal elements seen Comment: Performed by [facility] [address] [place] [address] Culture, Blood [[id number]] Collected: 03/23/19 2333 Order Status: Completed Lab Status: Final result Updated: 03/28/19 2352 Specimen: Blood Culture No growth after 5 days incubation. Culture, Blood [[id number]] Collected: 03/23/19 2255 Order Status: Completed Lab [...] this chart may have been created with Novon[employer] voice recognition software. Occasi onal wrong-word or [...] 03/31/2019 5:42 PM PDTPatient left with family, [facility] and i nstructions received before discharge and RX's filled at outpt pharmacy. VSS, ambulating wit h SBA, A&O x4, accepting of discharge. Dialysis completed this AM. Pain controlled with q4 o xy, LD 1400. Home health will f/u tomorrow. AVS reviewed and sent with patient, verbalized u nderstanding. Merry Hess MSW - 03/31/2019 11:05 AM PDTSOCIAL WORK PLAN: Home with [facility] NEXT STEPS: 1. Pt to follow up with [facility] 2. [facility] to follow up with pt at dc INTERVENTION: SW spoke with [facility], pt has a $2.50 out of pocket cost weekly, pt is agreeable to pay for this. Therefore pt will dc today with [facility]. SW provided [facility] with hard script for IV abx. SW faxed over HH order to [facility], SW faxed over IV vanco script to [facility]. [facility] notified of pt's dc home. notified. [facility] to meet with pt later this afternoon for teach. SW provided pt with 3 gas cards to assist with transportation. No further dc needs identified. SW received call from [facility] HD clinic that they cannot provide IV Vanco as Vanco h as not been consigned by Maintenance Service Dispatcher that has privileges in [place]. IV Vanco will now be done b y [facility], [address] faxed over hard script to [facility]. They will have both IV Abx ready and will teach pt shortly. No further dc needs identified. CONTACTS: Yina La: sister India Tilley: sister [place] Transportation: [place] Medicaid Transportation fax: [phone] [facility]: [phone] fax: [phone] [facility] [phone] [facility]: [phone] [facility]: [phone] [facility] FAX: [phone] aray Michelle Taylor - 03/31/2019 10:12 AM PDT Patient: Estefani Tilley Date of : 1945 Admit Date: 03/24/2019 Date of Service: 03/31/2019 PCP: Francisca Womack PA-C Hospital Day: Hospital Day: 8 Hospital Course: 73-year-old female with history of ESRD on hemodialysis, hypertension, type 2 diabetes, hyp othyroidism, chronic anemia, hyperlipidemia with a history of stroke transferred from [facility] for evaluation of T11-T12 lesion noted on [...] to go to SNF ([facility] in [place], [place] - of which has accepted her [...] dialysis patient - has OP clinic in [place] already Macrocytic anemia likely secondary to-likely anemia [...] hoping to arrange home IV antibiotics through [facility]. Awaiting to see if insurance will cover [...] - 99 mg/dL Final Comment: Performed by [facility] [address] [facility] [place] [address] 03/30/2019 21:14 200 (H) 65 - 99 mg/dL Final Comment: Performed by [facility] [address] [facility] [place] [address] 03/30/2019 17:46 111 (H) 65 - 99 mg/dL Final Comment: Performed by [facility] [address] [facility] [place] [address] 12/09/2018 18:05 113 (H) 70 - 109 [...] Tilley 73 y.o. 1945 Med. Record Number: [id number] Date of admission: 03/24/2019 Patient admitted with [...] Electronically signed by: Jesus Whitney, 03/31/2019 8:26 [facility] Robb Phillips, PharmD - 03/31/2019 7:25 AM PDTFormatting of this note might be different from the [facility] nal. Pharmacy Progress Note VANCOMYCIN PER PHARMACY [...] Nunez MD - 03/30/2019 9:45 PM PDT [facility] INPATIENT ROUNDING NOTE Date of Service: 03/30/2019 Rounding Physician: Randy Corrigan MD Patient Name: Estefani Tilley : 1945 Medical Record: [id number] Hospital Summary: Estefani Tilley is a 73 y.o. female with a PMHx of ESRD, HTN, Dm type 2, hypothyroidism, HLd, CVA who is under the care of Dr Muñoz at [facility] who dialyzes MWF admitted with possible [...] Corrigan MD, 03/30/2019, 21:45 ettler, Nan Tony, CORN HUSKER MACHINE OPERATOR - 03/30/2019 2:34 PM PDT SOCIAL WORK D/C PLAN:DC home with [facility] providing IV-ABX and [facility] providing picc care and lab draws vs [facility] NEXT STEPS: -SW will need to follow up with [facility] regarding providing IV-ABX to pt. -SW will need to follow up with [facility] regarding providing picc care and lab draws. -SW will need to follow up with [facility] regarding having pt receive vanco do se while at dialysis center if pt is to go home with IV-ABX -SW will need to follow up with [facility] if pt is unable to go home with IV-ABX rega ridng pt's DC -SW will need to fax SNF orders, scripts and PASRR to [facility] if pt is unable to go home -SW will need to provide gas cards to pt's family for transportation home. INTERVENTION:ROBIN spoke with pt regarding acceptance to [facility]. Pt is now wanting to go home with IV-ABX. ROBIN spoke with [facility]. They go out to [place], [place] and have openings for nursing care. Referral faxed to [facility]. Pt is amenable to using [facility] for IV-ABX. SW spoke with [facility] liasion who will run pt's be nefits to see if she can DC home with IV-ABX. Pt states that [facility] can provide teach to her son to help administer IV-ABX. SW left message for [facility] to see if they can provide vanco dose to pt at [facility] on Wednesday, Wednesday and Wednesday if pt is able to go home. Pt states that she does dialysis on Wednesday, Wednesday and Wednesday from 12:00-4:00. SW received phone call from [facility]. They have accepted pt for admission if [...] if pt is going to go to [facility] SNF. ASSESSMENT/CHART REVIEW:73 yr old femalewith a history of ESRD on hemodialysis, hypertens ion, type 2 diabetes, hypothyroidism,chronic anemia,hyperlipidemia, hx of stroke [facility] of T11-T12 lesion noted on MRI concerning fo r osteomyelitis. SW met with pt's sister, Yina, and her cousin, Keri, who were waiting in pt's room while s he was in dialysis. SW will need to follow up with pt re: d/c planning. Pt's sister and cousin related that pt mostly lives at Yina's house outside [place], [place], but does not like to be tied down because she enjoys attending [place] festivals and many events. She does at [facility] dialysis weekly. Pt has a vehicle and is very independent. D/C TRANSPORT:Pt can be transported home or to [facility] via family in a private car. They will need gas cards to help pay for transportation. BARRIERS TO D/C:none CONTACTS: Yina La: sister India Tilley: sister [place] Transportation: [place] Medicaid Transportation fax: [phone] [facility]: [phone] fax: [phone] [facility] [phone] [facility]: [phone] [facility]: [phone] [facility] FAX: [phone] Nan Cheney MSW - 03/30/2019 12:57 PM PDTSOCIAL WORK D/C PLAN:SNF: [facility] NEXT STEPS:Await bed availability INTERVENTION: ROBIN called and left message for Roneugene at [facility] regarding if they are willing to accept pt and to discuss transportation to and from dialysis. SW also called and left message for [place] Medicaid transportation regarding if they can transp ort pt to and from dialysis upon DC. Pt states that she goes to [facility] dial[facility] in [place], [place] on Wed, Wed, and Fridays from 12:00-4:00 pm. SW left message with [facility] regarding if there was any way that they may also be able to help with transportation to and from dialysis while pt is in rehab and to ensure that pt still has her chair time scheduled. [facility] is only open M on, Wednesday and Wednesday. ASSESSMENT/CHART REVIEW:73 yr old femalewith a history of ESRD on hemodialysis, hypertens ion, type 2 diabetes, hypothyroidism,chronic anemia,hyperlipidemia, hx of stroke [facility] lesion noted on MRI concerning fo r osteomyelitis. ROBIN met with pt's sister, Yina, and her cousin, Keri, who were waiting in pt's room while s he was in dialysis. ROBIN will need to follow up with pt re: d/c planning. Pt's sister and cousin related that pt mostly lives at Yina's house outside [place], [place], but does not like to be tied down because she enjoys attending [place] festivals and many events. She does at [facility] weekly. Pt has a vehicle and is very independent. D/C TRANSPORT:tbd BARRIERS TO D/C:none CONTACTS: Yina La: sister India Tilley: sister [place] Transportation: [place] Transportation fax: [phone] [facility]: [phone] fax: [phone] [facility] [phone] [facility]: [phone] signed by JENNIFER Xavier at 03/30 1:09 [...] with a history of stroke transferred from [facility] for evaluation of T11-T12 lesion noted [...] dialysis patient - has OP clinic in [place] already ---> will need SW to help [...] SNF - awaiting to hear back from [facility], in [place], [place] regarding possible acceptance there. Medically ready [...] Single Lumen 03/24/19 2143 Left Lateral Forearm kppv-zlf-ipvccj daniel ter system 20 gauge;1 1/4 in [...] - 99 mg/dL Final Comment: Performed by [facility] [address] [place] [address] 03/29/2019 21:09 157 (H) 65 - 99 mg/dL Final Comment: Performed by [facility] [address] [place] [address] 03/29/2019 18:50 91 65 - 99 mg/dL Final Comment: Performed by [facility] [address] [place] [address] 12/09/2018 18:05 113 (H) 70 - 109 [...] this chart may have been created with [employer] voice recognition software. Occasi onal wrong-word or sound-alike substitutions may have occurred due to the inherent mckeon itations of voice recognition software. Please read the chart carefully and recognize, using context, where these substitutions have occurred esus Whitney MD - 03/30/2019 7:15 AM PDT . Infectious Diseases Progress Note Pt. Name/Age/: Estefani Tilley 73 y.o. 1945 Med. Record Number: [id number] Date of admission: 03/24/2019 Patient admitted with [...] Electronically signed by: Jesus Whitney, 03/30/2019 7:15 [facility] Mary Wade RN - 03/30/2019 6:16 [...] intention has depression wishful of Monitoring Requirements [facility] Suicide Policy [facility] Suicide Risk/Telesitter Screening Utilizing this [...] 03/29/2019 4:18 PM PDTSOCIAL WORK D/C PLAN:SNF: [facility] NEXT STEPS:Await bed availability INTERVENTION: SW called and spoke with admissions person at [facility], they are still discussing pt's case. They [...] anemia,hyperlipidemia, hx of stroke [facility] lesion noted on MRI concerning fo r osteomyelitis. SW met with pt's sister, Yina, and her cousin, Keri, who were waiting in pt's room while s he was in dialysis. SW will need to follow up with pt re: d/c planning. Pt's sister and cousin related that pt mostly lives at Yina's house outside [place], [place], but does not like to be tied down because she enjoys attending [place] festivals and many events. She does at [facility] weekly. Pt has a vehicle and is very independent. D/C TRANSPORT:tbd BARRIERS TO D/C:none CONTACTS: Yina La: sister India Tilley: sister [place] Medicaid Transportation: [facility]: [phone] fax: [phone] [facility] [phone] signed by JENNIFER Contreras at 03/29/2019 4:20 PM Randy Yu MD - 03/29/2019 12:32 PM PDT [facility] INPATIENT ROUNDING NOTE Date of Service: 03/29/2019 Rounding Physician: Randy Corrigan MD Patient Name: Estefani Tilley : 1945 Medical Record: [id number] Hospital Summary: Estefani Tilley is a 73 y.o. female with a PMHx of ESRD, HTN, Dm type 2, hypothyroidism, HLd, CVA who is under the care of Dr Muñoz at [facility] who dialyzes MWF admitted with possible [...] with a history of stroke transferred from [facility] for evaluation of T11-T12 lesion noted on [...] awaiting to hear from [facility], in [place] regarding possible acceptance. May be able [...] dialysis patient - has OP clinic in [place] already ---> will need SW to help [...] SNF - awaiting to hear back from [facility], in [place], [place] regarding possible acceptance there. Could possibly [...] Single Lumen 03/24/19 2143 Left Lateral Forearm fqqc-lcq-sfzqqb daniel ter system 20 gauge;1 1/4 in [...] - 99 mg/dL Final Comment: Performed by [facility] [address] [place] [address] 03/28/2019 21:06 144 (H) 65 - 99 mg/dL Final Comment: Performed by [facility] [address] [place] [address] 03/28/2019 11:22 119 (H) 65 - 99 mg/dL Final Comment: Performed by [facility] [address] [place] [address] 12/09/2018 18:05 113 (H) 70 - 109 [...] this chart may have been created with Nov[employer] voice recognition software. Occasi onal wrong-word or [...] Tilley 73 y.o. 1945 Med. Record Number: [id number] Date of admission: 03/24/2019 Patient admitted with [...] Electronically signed by: Jesus Whitney, 03/29/2019 7:35 [facility] zech, Carolina Restrepo RN - 03/28/2019 7:08 PM [id number] - Report called to Sanjuanita GONZALEZ. Pt's belongings . I pad and I phone w/ chargers as well as pt's purse, and shoes, and shirt and pants all sent with her to [address] [place] [address]. Pt had been sitting up eating dinner. [...] with a history of stroke transferred from [facility] for evaluation of T11-T12 lesion noted on [...] Single Lumen 03/24/19 2143 Left Lateral Forearm ytrq-ajb-npmsjy daniel ter system 20 gauge;1 1/4 in [...] - 99 mg/dL Final Comment: Performed by [facility] [address] [place] [address] 03/28/2019 07:09 75 65 - 99 mg/dL Final Comment: Performed by [facility] [address] [place] [address] 03/27/2019 20:38 109 (H) 65 - 99 mg/dL Final Comment: Performed by [facility] [address] [place] [address] 12/09/2018 18:05 113 (H) 70 - 109 [...] this chart may have been created with Novon[employer] voice recognition software. Occasi onal wrong-word or sound-alike substitutions may have occurred due to the inherent mckeon itations of voice recognition software. Please read the chart carefully and recognize, using context, where these substitutions have occurred Cordell Mcgarry, [facility] - 03/28/2019 2:57 PM PDTSOCIAL WORK D/C PLAN: SNF: [facility] NEXT STEPS: Await bed availability INTERVENTION: On-going dc planning. Rec'd update from [facility]. They confirm they have r ec'd clinical notes and are currently reviewing. SW will follow. ASSESSMENT/CHART REVIEW:73 yr old femalewith a history of ESRD on hemodialysis, hypertens ion, type 2 diabetes, hypothyroidism,chronic anemia,hyperlipidemia, hx of stroke [facility] of T[facility]-T12 lesion noted on MRI concerning fo r osteomyelitis. SW met with pt's sister, Yina, and her cousin, Keri, who were waiting in pt's room while s he was in dialysis. SW will need to follow up with pt re: d/c planning. Pt's sister and co usin related that pt mostly lives at Yina's house outside [place], [place], but does not like to be tied down because she enjoys attending [place] festivals and many events. She does atten d dialysis weekly. Pt has a vehicle and is very independent. D/C TRANSPORT: tbd BARRIERS TO D/C: none CONTACTS: Yina La: sister India Tilley: sister [facility]: [phone] fax: [phone] [facility] [phone] illum, Mario Alberto morales MD - 03/28/2019 7:34 AM PDTFormatting of this note might be different from the maynor rollins Infectious Diseases Progress Note Pt. Name/Age/: Estefani Jimenez Jarek 73 y.o. 1945 Med. Record Number: [id number] Date of admission: 03/24/2019 Patient admitted with [...] Electronically signed by: Carlos Jansen 03/28/2019 7:34 [facility] Katey Solis MD - 03/27/2019 8:58 PM PDT Patient: Estefani Tilley Date of : 1945 Admit Date: 03/24/2019 Date of Service: 03/27/2019 PCP: Francisca Womack PA-C Hospital Day: Hospital Day: 4 Hospital Course: 73-year-old female with history of ESRD on hemodialysis, hypertension, type 2 diabetes, hyp othyroidism, chronic anemia, hyperlipidemia with a history of stroke transferred from [facility] for evaluation of T11-T12 lesion noted on MRI concerning for osteomyeliti s. Infectious disease consulted. Status post aspiration from her thoracic spine, Gram stain negative, cultures pending. Rosemary ent started on empiric vancomycin and cefepime. Will need 6 weeks of IV antibiotics. Discussed with nephrology, recommend placement of Tillman catheter instead of PICC line for superintendent container terminal IV antibiotics. Nephrology following for maintenance hemodialysis. [...] Tillman catheter instead of PICC line for superintendent container terminal IV antibiotics. Pain management -trial of lidocaine [...] Single Lumen 03/24/19 2143 Left Lateral Forearm tule-eif-flbvbp daniel ter system 20 gauge;1 1/4 in [...] - 99 mg/dL Final Comment: Performed by [facility] [address] [place] [address] 03/27/2019 13:58 82 65 - 99 mg/dL Final Comment: Performed by [facility] [address] [place] [address] 03/27/2019 06:39 83 65 - 99 mg/dL Final Comment: Performed by [facility] [address] [place] [address] 12/09/2018 18:05 113 (H) 70 - 109 [...] this chart may have been created with [employer] voice recognition software. Occasi onal wrong-word or sound-alike substitutions may have occurred due to the inherent mckeon itations of voice recognition software. Please read the chart carefully and recognize, using context, where these substitutions have occurred arlin Diaz, [facility] - 03/27/2019 3:17 PM PDTSOCIAL WORK D/C PLAN: SNF: [facility] NEXT STEPS: Await bed availability INTERVENTION: Rec'd call from Emili at [facility]. She states the contracted f acility near pt's home is [facility]. Spoke with pt and with sister India. Referral and (-) Pasrr sent to [facility]. Copy of Pasrr placed in light chart with request to file into jos rds. SW will follow. ASSESSMENT/CHART REVIEW:73 yr old femalewith a history of ESRD on hemodialysis, hypertens ion, type 2 diabetes, hypothyroidism,chronic anemia,hyperlipidemia, hx of stroke [facility] noted [...] be tied down because she enjoys attending [place] festivals and many events. She does atten d dialysis weekly. Pt has a vehicle and is very independent. D/C TRANSPORT: tbd BARRIERS TO D/C: none CONTACTS: Yina La: sister India Tilley: sister [facility]: [phone] fax: [phone] [facility] [phone] Gregg Mcgarry [facility] - 03/27/2019 2:17 PM PDTFormatting of this note might be different from jerald more. SOCIAL WORK D/C PLAN: SNF NEXT STEPS: SW to follow up with pt regarding SNF preference INTERVENTION: On-going dc planning, chart reviewed and met with pt. Discussed need of prison IV abx, Discussed options. Provided list of [...] be tied down because she enjoys attending [place] festivals and many events. She does atten d dialysis weekly. Pt has a vehicle and is very independent. ASSESSMENT/CHART REVIEW:73 yr old femalewith a history of ESRD on hemodialysis, hypertens ion, type 2 diabetes, hypothyroidism,chronic anemia,hyperlipidemia, hx of stroke [facility]-T12 lesion noted on MRI concerning fo r osteomyelitis. D/C TRANSPORT: tbd BARRIERS TO D/C: none CONTACTS: Ynia La Sister [phone] India Tilley Sister [phone] Chichi, Irish sexton, Food Service Hotel Runner - 03/27/2019 1:33 PM PDTFormatting of this [...] Vancomycin Protocol Electronically signed by: Aimee Carroll, Food Service Hotel Runner 03/27/2019 13:33Electronically si gned by Ray Joel, PharmD at 03/27/2019 2:04 PM PDT Associated attestation - Ray Joel PharmD - 03/27/2019 2:04 PM PDTI reviewed and agr ee with the assessment and plan. Ray Joel, PharmDeepa 03/27/2019 14:04 Randy Corrigan MD - 03/27/2019 10:52 AM PDT [facility] INPATIENT ROUNDING NOTE Date of Service: 03/27/2019 Rounding Physician: Randy Corrigan MD Patient Name: Estefani Tilley : 1945 Medical Record: [id number] Hospital Summary: Estefani Tilley is a 73 y.o. female with a PMHx of ESRD, HTN, Dm type 2, hypothyroidism, HLd, CVA who is under the care of Dr Muñoz at [facility] who dialyzes MWF admitted with possible [...] Jarek 73 y.o. 1945 Med. Record Number: [id number] Date of admission: 03/24/2019 Patient admitted with [...] Electronically signed by: Carlos Jansen, 03/27/2019 7:10 [facility] Katey Solis MD - 03/26/2019 5:40 PM PDT Patient: Estefani Tilley Date of : 1945 Admit Date: 03/24/2019 Date of Service: 03/26/2019 PCP: Francisca Womack PA-C Hospital Day: Hospital Day: 3 Hospital Course: 73-year-old female with history of ESRD on hemodialysis, hypertension, type 2 diabetes, hyp othyroidism, chronic anemia, hyperlipidemia with a history of stroke transferred from [facility] [place] for evaluation of T11-T12 lesion noted on [...] Single Lumen 03/24/19 2143 Left Lateral Forearm xfmi-kzm-paghbk daniel ter system 20 gauge;1 1/4 in [...] - 99 mg/dL Final Comment: Performed by [facility] [address] [place] [address] 03/26/2019 06:49 116 (H) 65 - 99 mg/dL Final Comment: Performed by [facility] [address] [place] [address] 03/25/2019 20:37 110 (H) 65 - 99 mg/dL Final Comment: Performed by [facility] [address] [place] [address] 12/09/2018 18:05 113 (H) 70 - 109 [...] this chart may have been created with [employer] voice recognition software. Occasi onal wrong-word or sound-alike substitutions may have occurred due to the inherent mckeon itations of voice recognition software. Please read the chart carefully and recognize, using context, where these substitutions have occurred Jose Gamez, Pharmacy R esident - 03/26/2019 10:52 AM PDTFormatting of this note might be different from the [facility] Progress Note VANCOMYCIN PER PHARMACY [...] Vancomycin Protocol Electronically signed by: Jose Menard, Food Service Hotel Runner 03/26/2019 10:52 su, Randy Nunez MD - 03/26/2019 1 0:38 AM PDT [facility] INPATIENT ROUNDING NOTE Date of Service: 03/26/2019 Rounding Physician: Randy Corrigan MD Patient Name: Estefani Tilley : 1945 Medical Record: [id number] Hospital Summary: Estefani Tilley is a 73 y.o. female with a PMHx of ESRD, HTN, Dm type 2, hypothyroidism, HLd, CVA who is under the care of Dr Muñoz at [facility] who dialyzes MWF admitted with possible osteo disccitis t11/t12 ASSESSMENT AND PLAN 1. ESRD/HD dependent Access is LUE AVF working well No indications for HD today Usually dialyzes MWF at [facility] Hd tommorow 2. Anemia Hg at [...] Tilley 73 y.o. 1945 Med. Record Number: [id number] Date of admission: 03/24/2019 Patient admitted with [...] Electronically signed by: Carlos Jansen, 03/26/2019 8:03 [facility] Katey Solis MD - 03/25/2019 3:50 PM PDT Patient: Estefani Tilley Date of : 1945 Admit Date: 03/24/2019 Date of Service: 03/25/2019 PCP: Francisca Womack PA-C Hospital Day: Hospital Day: 2 Hospital Course: 73-year-old female with history of ESRD on hemodialysis, hypertension, type 2 diabetes, hyp othyroidism, chronic anemia, hyperlipidemia with a history of stroke transferred from [facility] [place] for evaluation of T11-T12 lesion noted on [...] Single Lumen 03/24/19 2143 Left Lateral Forearm drgz-lnd-pvvgdo daniel ter system 20 gauge;1 1/4 in [...] - 99 mg/dL Final Comment: Performed by [facility] [address] [place] [address] 03/25/2019 06:52 107 (H) 65 - 99 mg/dL Final Comment: Performed by [facility] [address] [place] [address] 03/24/2019 20:11 112 (H) 65 - 99 mg/dL Final Comment: Performed by [facility] [address] [place] [address] 12/09/2018 18:05 113 (H) 70 - 109 [...] this chart may have been created with [employer] voice recognition software. Occasi onal wrong-word or sound-alike substitutions may have occurred due to the inherent mckeon itations of voice recognition software. Please read the chart carefully and recognize, using context, where these substitutions have occurred su, Randy Nunez MD - 0 03/25/2019 1:47 PM PDT [facility] INPATIENT ROUNDING NOTE Date of Service: 03/25/2019 Rounding Physician: Randy Corrigan MD Patient Name: Estefani Tilley : 1945 Medical Record: [id number] Hospital Summary: Estefani Tilley is a 73 y.o. female with a PMHx of ESRD, HTN, Dm type 2, hypothyroidism, HLd, CVA who is under the care of Dr Muñoz at [facility] who dialyzes MWF admitted with possible osteo disccitis t11/t12 ASSESSMENT AND PLAN 1. ESRD/HD dependent Access is LUE AVF working well No indications for HD today Usually dialyzes MWF at [facility] She is below her EDW an [...] pt mostly lives at Yina's house outside [facility], but does not like to be tied down because she enjoys attending [place] festivals and many events. She does atten d dialysis weekly. Pt has a vehicle and is very independent. ASSESSMENT/CHART REVIEW:73 yr old femalewith a history of ESRD on hemodialysis, hypertens ion, type 2 diabetes, hypothyroidism,chronic anemia,hyperlipidemia, hx of stroke [facility] lesion noted on MRI concerning fo r osteomyelitis. D/C TRANSPORT: tbd BARRIERS TO D/C: none CONTACTS: Yina La Sister [phone] India Tilley Sister [phone] Carlos Gonzales M D - 03/25/2019 8:34 AM PDT Infectious Diseases Progress Note Pt. Name/Age/: Estefani Tilley 73 y.o. 1945 Med. Record Number: [id number] Date of admission: 03/24/2019 Patient admitted with [...] Electronically signed by: Carlos Jansen, 03/25/2019 8:34 [facility] Jose Gamez, Food Service Hotel Runner - 03/24/2019 10:46 PM PDTFormatting of this [...] Vancomycin Protocol Electronically signed by: Jose Menard, Food Service Hotel Runner 03/24/2019 22:46 Gladys Daugherty MSW - 9 [...] pt mostly lives at Yina's house outside [place], [place], but do es not like to be tied down because she enjoys attending [place] festivals and many events. She does attend dialysis weekly. Pt has a vehicle and is very independent. ASSESSMENT/CHART REVIEW:73 yr old female with a history of ESRD on hemodialysis, hypertensi on, type 2 diabetes, hypothyroidism, chronic anemia, hyperlipidemia, hx of stroke transferre d from [facility] for evaluation of T11-T12 lesion noted on MRI concerning for ost eomyelitis. D/C TRANSPORT: tbd BARRIERS TO D/C: none CONTACTS: Yina La Sister [phone] India Tilley Sister [phone] Katey Solis MD - 03/24/2019 3:53 PM PDTPatient seen and examined. Chart reviewed. Briefly, 73-year-old female with history of ESRD on hemodialysis, hypertension, type 2 diab etes, hypothyroidism, chronic anemia, hyperlipidemia with a history of stroke [facility] [place] for evaluation of T11-T12 lesion noted on [...] not have any p raza, consider antidepressants. dining service worker consulted for concerns for housing concerns [...] 1250 mg IV once given 03/23 @ 5612 at [facility]. 2. Target Trough: 15-20 mcg/ml 3. [...] Procedure Component Value Units Date/Time Culture, Blood [[id number]] Collected: 03/23/192332 Order Status: Sent Lab Status: In process Updated: 03/23/192348 Specimen: Blood Culture, Blood [[id number]] Collected: 03/23/192254 Order Status: Sent Lab Status: [...] | [facility] | | | POC | [facility] [address], | | SACRED | | | | [place] [address] | | HEART | | | |Performed by [facility] [address], [place] [address] | | MEDICAL | | | | [...] Ave. | [place] | | | [facility] | | | | | LABORATORY [place] [...] | RIMAE | | | POC | [facility] [address], | | SACRED | | | | [place] | | HEART | | | |Performed by [facility] [address], [place] [address] | | MEDICAL | | | | [...] + | BETH [facility]Z | [address] | [place] [address] | | | [facility] | | | | | [...] | | LABORATORY | | | | [facility] [address], | | CERNER | | | | [place] [address] | | | | + + + + + + + + | Specimen | + + | Blood specimen | | (specimen) | + + + + + + + | Performing | Address | City/State/Zipcode | Phone Number | | Organization | | | | + + + + + | BETH LIZ | [address] | [place] [address] | | | [facility] | | | | | LABORATORY CERNER [...] ENCE | | | Immature | by [facility] [address], | K/uL | SACRED | | | Granulocyte | [place] [address] | | HEART | | | s |Performed by [facility] [address], [place] [address] | | MEDICA L | | | [...] + | [facility]ED | [address] | [place] [address] | | | [facility] | | | | | LABORATORY CERNER [...] by | | | | | | [facility] [address], | | | | | | [place] [address] | | | | + + + + + + + + | Specimen | + + | Blood specimen | | (specimen) | + + + + + + + | Performing | Address | City/State/Zipcode | Phone Number | | Organization | | | | + + + + + | BETH LIZ | [address] | [place] [address] | | | [facility] | | | | | LABORATORY CERNER [...] | | | POC | Performed by [facility] [address] | | [place]CR[place]ANS | | | | [place] | | HEART | | | | [address] | | MEDICAL | | | | [...] + | BETH LIZ | [address] | [place] [address] | | | [facility] | | | | | LABORATORY JESI [...] | | | POC | Performed by [facility] [address] | | SACRED | [...] | [address] | [place] [address] | | | HEART [facility] | | | | | LABORATORY [...] | | | POC | Performed by [facility] [address] | | SACRED | | | | [address] [place] | | HEART | | | | [address] | | MEDICAL | | | | [...] + | BETH LIZ | [address] | [place] [address] | | | [facility] | | | | | LABORATORY JESI [...] | | | POC | Performed by [facility] [address] | | SACRED | [...] [address] | [place] [address] | | | HEART [facility] | | | | | LABORATORY [...] PROVIDE NCE | | | | by [facility] [address], | | SACRED | | | | [place] [address] | | HEART | | | |Performed by [facility] [address], [place] [address] | | MEDICAL | | | | [...] + + | JIMRENUKA LIZ | [address] | [place] [address] | | | [facility] | | | | | YANY DENNISON [...] LUIS CE | | | | by [facility] [address], | | SACRED | | | | [place] [address] | | HEART | | | |Performed by [facility] [address], [place] [address] | | MEDICAL | | | | [...] [address] | [place] [address] | | | [facility] | | | | | LABORATORY CERNER [...] | | LABORATORY | | | | [facility] [address], | | CERNER | | | | [place] [address] | | | | + + + + + + + + | Specimen | + + | Blood specimen | | (specimen) | + + + + + + + | Performing | Address | City/State/Zipcode | Phone Number | | Organization | | | | + + + + + | BETH LIZ | [address] | [place] [address] | | | [facility] | | | | | YANY DENNISON [...] ENCE | | | Counted | by [facility] [address] [place] [address], | | SACRED | | | | [place] [address] | | HEART | | | |Performed by [facility] [address], [place] [address] | | MEDICA L | | | [...] + + | BETH LIZ | [address] | [place] [address] | | | [facility] | | | | | LABORATORY CERNER [...] | | | POC | Performed by [facility] [address] | | SACRED | | | | [address] [place], [place] | | HEART | | | | [address] | | MEDICAL | | | | [...] [address] | [place] [address] | | | [facility] | [...] | PROVIDENCE | | | POC | [facility] [address] [facility] [address], | | SACRED | | | | [place] [address] | | HEART | | | |Performed by [facility] [address] [place], [place] [address] | | MEDICAL | | | | [...] + | JIMRENUKA LIZ | [address] | [place] [address] | | | [facility] | | | | | LABORATORY JESI [...] | | | POC | Performed by [facility] [address] | | SACRED | | | | [address] [place] | | HEART | | | | [address] | | MEDICAL | | | | [...] [address] | [place] [address] | | | [facility] | | | | | LABORATORY JESI [...] AGUSTO | | | | [place] [address] | | HEART | | | |Performed by [facility] [address], [place] [address] | | MEDICAL | | | | [...] + + | BETH LIZ | [address] | [place] [address] | | | [facility] | [...] by | | | | | | [facility] [address], | | | | | | [place] [address] | | | | + + + + + + + + | Specimen | + + | Blood specimen | | (specimen) | + + + + + + + | Performing | Address | City/State/Zipcode | Phone Number | | Organization | | | | + + + + + | BETH LIZ | [address] | [place] [address] | | | [facility] | | | | | YANY DENNISON [...] ENCE | | | Counted | by [facility] [address], | | SACRED | | | | [place] [address] | | HEART | | | |Performed by [facility] [address], [place] [address] | | MEDICA L | | | [...] + | BETH LIZ | [address] [place] [address]. | [place] [address] | | | [facility] | | | | | LABORATORY CERNER [...] LUIS CE | | | | by [facility] [address], | | SACRED | | | | [place] [address] | | HEART | | | |Performed by [facility] [address], [place] [address] | | MEDICAL | | | | [...] SACRED | [address] | [place] [address] | | | [facility] | | | | | [...] | | LABORATORY | | | | [facility] [address], | | [place] | | | | [place] [address] | | | | + + + + + + + + | Specimen | + + | Blood specimen | | (specimen) | + + + + + + + | Performing | Address | City/State/Zipcode | Phone Number | | Organization | | | | + + + + + | JIMJOSE ADora LIZ | [address] | [place] [address] | | | [facility] | | | | | LABORATORY JESI [...] | | | POC | Performed by [facility] [address] | | SACRED | | | | [address], [place] | | HEART | | | | [address] | | MEDICAL | | | | [...] | [address] | [place] [address] | | | [facility] | [...] | | | POC | Performed by [facility] [address] | | SACRED | | | | [address] [place] | | HEART | | | | [address] | | MEDICAL | | | | [...] + | JIMJOSE ADora LIZ | [address] | [place] [address] | | | [facility] | | | | | LABORATORY CERNER [...] | PROVIDENCE | | | POC | [facility] [address], | | SACRED | | | | [place] [address] | | HEART | | | |Performed by [facility] [address] [facility] [address], [place] [address] | | MEDICAL | | | | [...] SACRED | [address] | [place] [address] | | | HEART [facility] | | | | | LABORATORY [...] | | LABORATORY | | | | [facility] [address], | | [place] | | | | [place] [address] | | | | + + + + + + + + | Specimen | + + | Blood specimen | | (specimen) | + + + + + + + | Performing | Address | City/State/Zipcode | Phone Number | | Organization | | | | + + + + + | BETH LIZ | [address] | [place] [address] | | | [facility] | | | | | LABORATORY CERNER [...] PROVIDE NCE | | | | by [facility] [address], | | SACRED | | | | [place] [address] | | HEART | | | |Performed by [facility] [address], [place] [address] | | MEDICAL | | | | [...] + | BETH LIZ | [address] [facility] [address] | [place] [address] | | | [facility] | | | | | LABORATORY JESI [...] | | | POC | Performed by [facility] [address] | | SACRED | [...] | [place] | | | HEART [facility] | | | | | LABORATORY [...] | | | POC | Performed by [facility] [address] | | SACRED | | | | [address] [place] | | HEART | | | | [address] | | MEDICAL | | | | [...] + | BETH LIZ | [address] [facility] [address]. | [place] [address] | | | [facility] | | | | | LABORATORY CERNER [...] | PROVIDENCE | | | POC | [facility] [address], | | SACRED | | | | [place] [address] | | HEART | | | |Performed by [facility] [address], [place] [address] | | MEDICAL | | | | [...] + + | BETH [facility] | [address] [place] | [place], [place] | | | [facility] [...] | [facility]ENCE | | | POC | [facility] [address], | | SACRED | | | | [place] | | HEART | | | |Performed by [facility] [address], [place] | | MEDICAL | | | [...] + + | BETH LIZ | [address] | [place] [address] | | | [facility] | | | | | LABORATORY JESI [...] by | | | | | | [facility] [address], | | | | | | [place] [address] | | | | + + + + + + + + | Specimen | + + | Blood specimen | | (specimen) | + + + + + + + | Performing | Address | City/State/Zipcode | Phone Number | | Organization | | | | + + + + + | BETH LIZ | [address] | [place] [address] | | | [facility] | | | | | LABORATORY JESI [...] | | | POC | Performed by [facility] [address] | | SACRED | [...] [address] | [place] [address] | | | HEART [facility] | | | | | LABORATORY [...] | | | POC | Performed by [facility] [address] | | SACRED | | | | [address] [place] | | HEART | | | | [address] | | MEDICAL | | | | [...] + | BETH LIZ | [address] | [place] [address] | | | [facility] | | | | | LABORATORY JESI [...] | | | POC | Performed by [facility] [address] | | SACRED | [...] [address] | [place] [address] | | | HEART [facility] | | | | | LABORATORY [...] PROVIDENCE | | | | Performed by [facility] [address] | | SACRED | | | | [address] [place], [place] | | HEART | | | | [address] | | MEDICAL | | | | [...] + | BETH LIZ | [address] | [place] [address] | | | [facility] | | | | | LABORATORY JESI [...] | | | POC | Performed by [facility] [address] | | SACRED | | | | [address], [place], [place] | | HEART | | | | [address] | | MEDICAL | | | | [...] SACRED | [address] | [place] [address] | | | [facility] | [...] by | | | | | | [facility] [address], | | | | | | [place] [address] | | | | + + + + + + + + | Specimen | + + | Blood specimen | | (specimen) | + + + + + + + | Performing | Address | City/State/Zipcode | Phone Number | | Organization | | | | + + + + + | BETH [facility]Z | [address] | [place] [address] | | | [facility] | | | | | LABORATORY JESI [...] | | LABORATORY | | | | [facility] [address], | | JESI | | | | [place] [address] | | | | + + + + + + + + | Specimen | + + | Blood specimen | | (specimen) | + + + + + + + | Performing | Address | City/State/Zipcode | Phone Number | | Organization | | | | + + + + + | PROVIDE[facility] AE [facility] | [address] | [place] [address] | | | [facility] | | | | | LABORATORY CERMICA [...] PROVIDE NCE | | | | by [facility] [address], | | SACRED | | | | [place] | | HEART | | | |Performed by [facility] [address] [facility] [address], [place] | | MEDICAL | | | [...] + + | [facility] | [address] | [place] | | | [facility]ICAL [facility]ENTER [...] CE | | | B-12 | by [facility] [address], | | SACRED | | | | [place] [address] | | HEART | | | |Performed by [facility] [address], [place] [address] | | MEDICAL | | | | [...] + + | [facility] | [address] | [place] [address] | | | [facility] | | | | | LABORATORY CERNER [...] by | | | | | | [facility] [address], | | | | | | [place] [address] | | | | + + + + + + + + | Specimen | + + | Blood specimen | | (specimen) | + + + + + + + | Performing | Address | City/State/Zipcode | Phone Number | | Organization | | | | + + + + + | BETH [facility]Z | [address] | [place] [address] | | | [facility] | | | | | LABORATORY JESI [...] | | | POC | Performed by [facility] [address] | | SACRED | | | | [address] [place] | | HEART | | | | [address] | | MEDICAL | | | | [...] [address] | [place] [address] | | | [facility] | | | | | LABORATORY CERNER [...] | | | POC | Performed by [facility] [address] | | SACRED | | | | [address], [place] | | HEART | | | | [address] | | MEDICAL | | | | [...] + | BETH LIZ | [address] | [place] [address] | | | [facility] | | | | | LABORATORY JESI [...] | | | POC | Performed by [facility] [address] | | SACRED | | | | [address] [place] | | HEART | | | | [address] | | MEDICAL | | | | [...] + + | BETH LIZ | [address] | [place] [address] | | | [facility] | | | | | LABORATORY JESI [...] PROVIDE NCE | | | | by [facility] [address], | | SACRED | | | | [place] [address] | | HEART | | | |Performed by [facility] [address], [place] [address] | | MEDICAL | | | | [...] + + | JIMRENUKA AGUSTO | [address] | [place] [address] | | | [facility] | | | | | LABORATORY JESI [...] LUIS CE | | | | by [facility] [address], | | SACRED | | | | [place], [place] | | HEART | | | |Performed by [facility] [address], [place] | | MEDICAL | | | [...] SACREVANS | [address] | [place], [place] | | | HEART [facility] | | | | | LABORATORY [...] | | LABORATORY | | | | [facility] [address], | | JESI | | | | [place] [address] | | | | + + + + + + + + | Specimen | + + | Blood specimen | | (specimen) | + + + + + + + | Performing | Address | City/State/Zipcode | Phone Number | | Organization | | | | + + + + + | BETH LIZ | [address] | [place] [address] | | | [facility] | | | | | LABORATORY JESI [...] | | | POC | Performed by [facility] [address] | | SACRED | | | | [address] [place] | | HEART | | | | [phone] | | MEDICAL | | | | [...] + | [facility] | [address] | [place] [address] | | | [facility] | | | | | LABORATORY JESI [...] | | | POC | Performed by [facility] [address] | | SACRED | [...] [address] | [place] [address] | | | HEART [facility] | | | | | LABORATORY [...] | SACRED | | | Total | [place] [address] | | HEART | | | | [address] [place], [place] | | MEDICAL | | | | [phone] Daniel | | CENTER | | | | Lauro OHLDEN [phone] | | LABORATORY | | | | [...] | JIMJOSE ADora LIZ | [address] | [place] [address] | | | [facility] | | | | | LABORATORY JESI [...] | SACRED | | | | by [facility] [address], | | HEART | | | | [place] [address] | | MEDICAL | | | | [...] [address] | [place] [address] | | | [facility] | [...] | SACRED | | | | by [facility] [address], | | HEART | | | | [place], [place] | | MEDICAL | | | [...] SACRED | [address] | [place], [place] | | | [facility] | | | | | [...] | MEDICAL | | | | by [facility] [address], | | [place] | | | | [place] [address] | | LABORATORY | | | |Performed by [facility] [address], [place] [address] | | CERNER | | | | [...] + + | BETH LIZ | [address] | [place] [address] | | | [facility] | | | | | LABORATORY CERNER [...] | | | POC | Performed by [facility] [address] | | SACRED | | | | [address], [place] | | HEART | | | | [address] | | MEDICAL | | | | [...] | JIMJOSE ADora DENVEREVANS | [address] [facility] [address] | [place] [address] | | | [facility] | | | | | LABORATORY JESI [...] | | | POC | Performed by [facility] [address] | | SACRED | | | | [address] [place], [place] | | HEART | | | | [address] | | MEDICAL | | | | [...] + + | [facility] | [address] | [place] [address] | | | HE[facility]ICAL CENTER | [...] CENTER | | | | 3.5Performed by [facility] [address] | | LABORATORY | | | | [address], [place] | | [place] | | | | [address] | | | | + + + + + + + + | Specimen | + + | Blood specimen | | (specimen) | + + + + + + + | Performing | Address | City/State/Zipcode | Phone Number | | Organization | | | | + + + + + | [facility] | [address] | [place] [address] | | | [facility] | | | | | LABORATORY CERNER [...] | | | Immature | Performed by [facility] [address] | K/uL | SACRED | | | Granulocyte | [address] [place] | | HEART | | | s | [phone] | | MEDICAL | | | | [...] | JIMJOSE ADora LIZ | [address] [address] | [place] [address] | | | [facility] | | | | | LABORATORY JESI [...] | | LABORATORY | | | | [facility] [address], | | JESI | | | | [place] [address] | | | | + + + + + + + + | Specimen | + + | Blood specimen | | (specimen) | + + + + + + + | Performing | Address | City/State/[facility] | Phone Number | | Organization | | | | + + + + + | BETH LIZ | [address] | [place] [address] | | | [facility] | | | | | LABORATORY [place] [...] | | | | First dose on [facility] 03/30/19 at 1130 | | AM [...] scheduled: AC, NPO, Daytime | | | 2516-2093 Use NIGHT DOSE for | | | doses scheduled: HS, 3AM, | | | Nighttime 1777-3533 If the BG is | | | [...]
--- OUTSIDE RECORDS SUMMARY | ~2019-09-08 | XMS | Encounter Summary ---
Demographics + + + | Address | [address] | | | [place] [address] | + + + | Home Phone [...] | Author | [facility] | | | and [place] | + + + | Organization | [facility] | | | and [place] | + + + | Address | Unknown | + + + | Phone | Unavailable | + + + Support + + + + + | Name | Relationship | Address | Phone | + + + + + | India Tilley | ECON | [address] | | | | | [place], [place] | | | | | [address] | | + + + + + | Yina La | ECON | Unknown | | + + + + + | Yina Peterson | ECON | Unknown | | + + + + + | Leatha Casillas | ECON | Unknown | | + + + + + Care Team Providers + +------+ + | Care Senior Label Specialist Name | Role | Phone | + +------+ + PCP | Unavailable | + +------+ + Reason for Visit + + + | Reason | Comments | + + + | Dialysis | | | (Asymptomatic) | | + + + Encounter Details +--------+ + + + + | Date | Type | Department | Care Team | Description | +--------+ + + + + | 06/03/ | [facility] | [facility] | Darlin Moseley W, | Dialysis | | 2018 | | NEPHROLOGY [address] | [address] [place] | (Asymptomatic) | | | | [address] | [address] [place] | | | | | [place] | [place] [address] | | | | | [address] | [phone] | | | | | [phone] | | | +--------+ + + + [...]
--- OUTSIDE RECORDS SUMMARY | ~2019-09-08 | XMS | Encounter Summary ---
Demographics + + + | Address | [address] | | | [place] [address] | + + + | Home Phone [...] [facility] | | | and [place] | + + + | Organization | [facility] | | | and [place] | + + + | Address | Unknown | + + + | Phone | Unavailable | + + + Support + + + + + | Name | Relationship | Address | Phone | + + + + + | India Tilley | ECON | [address] | | | | | [place], [place] | | | | | [address] | | + + + + + | Yina La | ECON | Unknown | | + + + + + | Yina Peterson | ECON | Unknown | | + + + + + | Leatha Casillas | ECON | Unknown | | + + + + + Care Team Providers + +------+ + | Care Entry Rep Name | Role | Phone | + +------+ + PCP | Unavailable | + +------+ + Encounter Details +--------+ + + + + | Date | Type | Department | Care Team | Description | +--------+ + + + + | 05/16/ | Abstract | [facility] | Gopi Muñoz | | | 2018 | | NEPHROLOGY [address] | M, DO [address] [place] | | | | | [address] [facility] 100 | [place], [facility] 100 | | | | | [place], [place] | [place] | | | | | [address] | [address] | | | | | [phone] | | | +--------+ + + + [...] + | SEDIMENTATION RATE | Routin | 05/12/2019 | | Results for this | | | e | | | procedure are in the | | | | | | results section. | + +--------+ + + + documented in this encounter Results Sedimentation Rate (05/12/2019) + +--------+ + + + | Component | Value | Ref Range | Performed | Pathologist | | | | | At | Signature | + +--------+ + + + | ESR | 79 (A) | 0 - 20 mm/hr | | | + +--------+ + + + + + | Specimen | + + | Blood | + + documented in this encounter Visit Diagnoses Not on filedocumented in this encounter"
--- OUTSIDE RECORDS SUMMARY | ~2019-09-08 | XMS | Encounter Summary ---
Demographics + + + | Address | [address] | | | [place] [address] | + + + | Home Phone [...] + + | Author | [facility] | | | and [place] | + + + | Organization | [facility] | | | and [place] | + + + | Address | Unknown | + + + | Phone | Unavailable | + + + Support + + + + + | Name | Relationship | Address | Phone | + + + + + | India Tilley | ECON | [phone] | | | | | [place], [place] | | | | | [address] | | + + + + + | Yina La | ECON | Unknown | | + + + + + | Yina Peterson | ECON | Unknown | | + + + + + | Leatha Casillas | ECON | Unknown | | + + + + + Care Team Providers + +------+ + | Care Channel Cementer Name | Role | Phone | + +------+ + | DangeloRenato FRONT DESK SUPERVISOR | PCP | | + +------+ + Reason for Visit + + + | Reason | Comments | + + + | Appointment | schedule | + + + Encounter Details +--------+ + + + + | Date | Type | Department | Care Team | Description | +--------+ + + + + | 06/27/ | Telephone | [facility] | Ta Melendez, | Appointment | | 2018 | | INTERVENTIONAL | MD Chidi Ibanez | (schedule) | | | | RADIOLOGY [address] | Kaitlyn Hernandez | | | | | [address] | [place] [address] | | | | | [place], [place] | [phone] | | | | | [address] | | | | | | [phone] | | | +--------+ + + + [...]
--- OUTSIDE RECORDS SUMMARY | ~2019-09-08 | XMS | Encounter Summary ---
Demographics + + + | Address | [address] | | | [place] [address] | + + + | Home Phone [...] | Author | [facility] | | | and [place] | + + + | Organization | [facility] | | | and [place] | + + + | Address | Unknown | + + + | Phone | Unavailable | + + + Support + + + + + | Name | Relationship | Address | Phone | + + + + + | India Tilley | ECON | [address] | | | | | [place], [place] | | | | | [address] | | + + + + + | Yina La | ECON | Unknown | | + + + + + | Yina Peterson | ECON | Unknown | | + + + + + | Leatha Casillas | ECON | Unknown | | + + + + + Care Team Providers + +------+ + | Care Video Camera Operator Name | Role | Phone | [...] | renal | PA-C 2229 | [address] [place] | | | | | disease | [place] | [place], [place] | | | | | ([facility]) | [place] | 100 [facility] | | | | | Procedures | [address] | [facility] MD | | | | | DE ESRD | [facility] | [address] Phone: | | | | | RELATED [place] | [place] | [phone] | | | | | MONTHLY | [address] | Fax: | | | | | 20&/> YR OLD | Phone: | [phone] | | | | | 4/> VISITS | [phone] | | | | | | | Fax: | | | | | | | [phone] | | + +--------+ + + + + Encounter Details +--------+ + + + + | Date | Type | Department | Care Team | Description | +--------+ + + + + | 01/09/ | Off-Site | [facility] | Gopi Muñoz | End stage renal | | 2019 | Visit | NEPHROLOGY [address] | M, DO [address] | disease (HCC) | | | | [address] | [place], [address] | (Primary Dx) | | | | [place] | [place], [place] | | | | | [address] | [address] | | | | | [phone] | | | +--------+ + + + [...] Y1 female who was seen at the [facility], [place] on the MWF shift. She is intermittently dysphoric. However sh e denies cramps, hiccups or nausea. She refused to go for rehab after ORIF of her hip at [facility] on 12/04/18. In addition, I personally [...] 11/03/2017 and then was DC to the [facility] [place], [place]. Unfortunately, she h as had intermittent [...] by Gopi Muñoz DO. 01/15/19 14:57 CC: [facility] Scott Koroma MD [facility], [place], [place] tGopi rick DO - 01/09/2019 11:00 AM PD T documented in thi s encounter Plan of Treatment Not on filedocumented as of this encounter Visit Diagnoses + + | Diagnosis | + + | End stage renal disease (HCC) - Primary End stage renal disease | + + documented in this encounter
--- OUTSIDE RECORDS SUMMARY | ~2019-09-08 | XMS | Encounter Summary ---
Demographics + + + | Address | [address] | | | [place] [address] | + + + | Home Phone | | + + + | Preferred Language | Unknown | + + + | Marital Status | Single | + + + | Alevism Affiliation | Unknown | + + + | Race | Unknown | + + + | Ethnic Group | Unknown | + + + Author + + + | Author | [facility] | | | and [place] | + + + | Organization | [facility] | | | and [place] | + + + | Address | Unknown | + + + | Phone | Unavailable | + + + Support + + + + + | Name | Relationship | Address | Phone | + + + + + | India Tilley | ECON | [address] | | | | | [place], [place] | | | | | [address] | | + + + + + | Yina La | ECON | Unknown | | + + + + + | Yina Peterson | ECON | Unknown | | + + + + + | Leatha Casillas | ECON | Unknown | | + + + + + Care Team Providers + +------+ + | Care Data Modeling Architect Name | Role | Phone | + +------+ + PCP | Unavailable | + +------+ + Encounter Details +--------+ + + + + | Date | Type | Department | Care Team | Description | +--------+ + + + + | 07/22/ | Hospital | [facility] | Gopi Muñoz | | | 2005 | Encounter | MED CTR XRAY [address] | M, DO [address] [place] | | | | | [place] | [place] | | | | | [place] [address] | [place] | | | | | [phone] | [address] | | | | | | | [...]
--- OUTSIDE RECORDS SUMMARY | ~2019-09-08 | XMS | Encounter Summary ---
Demographics + + + | Address | [address] | | | [place] [address] | + + + | Home Phone [...] | Author | [facility] | | | and [place] | + + + | Organization | [facility] | | | and [place] | + + + | Address | Unknown | + + + | Phone | Unavailable | + + + Support + + + + + | Name | Relationship | Address | Phone | + + + + + | India Tilley | ECON | [address] | | | | | [place], [place] | | | | | [address] | | + + + + + | Yina La | ECON | Unknown | | + + + + + | Yina Peterson | ECON | Unknown | | + + + + + | Leatha Casillas | ECON | Unknown | | + + + + + Care Team Providers + +------+ + | Care Hotbed Transfer Operator Name | Role | Phone | [...] 2019 | | [address] | Employer Relations Representative | intervertebral disc | | | | [place] | | (pyogenic), thoracic | | | | [address] | | region ([facility]); | | | | [phone] | | Osteomyelitis of | | | | | | thoracic vertebra | | | | | | ([facility]) | +--------+ + + + [...] | | | | region ([facility]) | | | | | [...] | | | | region ([facility]) | | | | | [...] | | [facility] | | | | Blvd;[place] [address] | | LABORATORY | | + + + + + + + + | Specimen | + + | Blood | + + + + + + + | Performing | Address | City/State/Zipcode | Phone Number | | Organization | | | | + + + + + | REFERENCE LAB | [address] [place] [address] | [place] [address] | [phone] | | [facility] | Blvd[address] | | | | LABORATORY | | | | + + + + + | REFERENCE LAB | [address] [place] [address] | [place] [address] | | | [facility] | Blvd[address] | [...] REFERENCE | | | | performed at [facility];[address] | | LAB | | | | [place] | | [facility] | | | | [address];[place] [address] | | LABORATORY | | + + + + + + + + | Specimen | + + | Blood | + + + + + + + | Performing | Address | City/State/Zipcode | Phone Number | | Organization | | | | + + + + + | REFERENCE LAB | [address] [place] [address] [facility] | [place] [address] | [phone] | | [facility] | Blvd[address] | | | | LABORATORY | | | | + + + + + | REFERENCE LAB | [facility] | [place] [address] | | | [facility] | Blvd[address] | [...]
--- OUTSIDE RECORDS SUMMARY | ~2019-09-08 | XMS | Encounter Summary ---
Demographics + + + | Address | [address] | | | [place] [address] | + + + | Home Phone | | + + + | Preferred Language | Unknown | + + + | Marital Status | Single | + + + | Mandaeism Affiliation | Unknown | + + + | Race | Unknown | + + + | Ethnic Group | Unknown | + + + Author + + + | Author | [facility] | | | and [place] | + + + | Organization | [facility] | | | and [place] | + + + | Address | Unknown | + + + | Phone | Unavailable | + + + Support + + + + + | Name | Relationship | Address | Phone | + + + + + | India Tilley | ECON | [address] | | | | | [place], [place] | | | | | [address] | | + + + + + | Yina La | ECON | Unknown | | + + + + + | Yina Peterson | ECON | Unknown | | + + + + + | Leatha Casillas | ECON | Unknown | | + + + + + Care Team Providers + +------+ + | Care Plans Examiner Name | Role | Phone | + +------+ + PCP | Unavailable | + +------+ + Encounter Details +--------+ + + + + | Date | Type | Department | Care Team | Description | +--------+ + + + + | 04/10/ | Hospital | [facility] | Patricia, | | | 2006 - | Encounter | MED CTR CANCER | Venkatesh Forte MD [address] | | | | | [place] [address] | [facility] | | | 04/12/ | | [place], [place] | [place] [address] | | | 2006 | | [address] | [phone] | | | | | [phone] | | | +--------+ + + + [...]
--- OUTSIDE RECORDS SUMMARY | ~2019-09-08 | XMS | Encounter Summary ---
Demographics + + + | Address | [address] | | | [place] [address] | + + + | Home Phone [...] + | Author | [facility] | | | and [place] | + + + | Organization | [facility] | | | and [place] | + + + | Address | Unknown | + + + | Phone | Unavailable | + + + Support + + + + + | Name | Relationship | Address | Phone | + + + + + | India Tilley | ECON | [address] | | | | | [place], [place] | | | | | [address] | | + + + + + | Yina La | ECON | Unknown | | + + + + + | Yina Peterson | ECON | Unknown | | + + + + + | Leatha Casillas | ECON | Unknown | | + + + + + Care Team Providers + +------+ + | Care Drying Unit Felting Machine Operator Name | Role | Phone | + +------+ + PCP | Unavailable | + +------+ + Encounter Details +--------+ + + + + | Date | Type | Department | Care Team | Description | +--------+ + + + + | 09/25/ | Hospital | [facility] | [facility], | | | 2007 - | Encounter | MED CTR CANCER | Venkatesh Forte MD [address] | | | | | [place] [address] [place] | [facility] | | | 10/13/ | | [place] | [place] [address] | | | 2007 | | [address] | [phone] | | | | | [phone] | | | +--------+ + + + [...]
--- OUTSIDE RECORDS SUMMARY | ~2019-09-08 | XMS | Encounter Summary ---
Demographics + + + | Address | [address] | | | [place] [address] | + + + | Home Phone [...] | Author | [facility] | | | and [place] | + + + | Organization | [facility] | | | and [place] | + + + | Address | Unknown | + + + | Phone | Unavailable | + + + Support + + + + + | Name | Relationship | Address | Phone | + + + + + | India Tilley | ECON | [address] | | | | | [place], [place] | | | | | [address] | | + + + + + | Yina La | ECON | Unknown | | + + + + + | Yina Peterson | ECON | Unknown | | + + + + + | Leatha Casillas | ECON | Unknown | | + + + + + Care Team Providers + +------+ + | Care Nutritionalist Name | Role | Phone | + +------+ + PCP | Unavailable | + +------+ + Encounter Details +--------+ + + + + | Date | Type | Department | Care Team | Description | +--------+ + + + + | 11/08/ | Imaging | [facility] | Provider, | | | 2018 | Exam | MED CTR EXTERNAL | MD [address] | | | | | IMAGING | [address] | | | | | [phone] | [place] [address] | | +--------+ + + + + [...] for comparison only - no result from [place]. | [facility] | + + + + +---------+ + + | Performing | Address | City/State/Zipcode | Phone Number | | Organization | | | | + +---------+ + + | [facility] | | | | + +---------+ + + documented in this encounter Visit Diagnoses Not on filedocumented in this encounter"
--- OUTSIDE RECORDS SUMMARY | ~2019-09-08 | XMS | Encounter Summary ---
Demographics + + + | Address | [address] | | | [place] [address] | + + + | Home Phone | | + + + | Preferred Language | Unknown | + + + | Marital Status | Single | + + + | Cheondoism Affiliation | Unknown | + + + | Race | Unknown | + + + | Ethnic Group | Unknown | + + + Author + + + | Author | [facility] | | | and [place] | + + + | Organization | [facility] | | | and [place] | + + + | Address | Unknown | + + + | Phone | Unavailable | + + + Support + + + + + | Name | Relationship | Address | Phone | + + + + + | India Tilley | ECON | [address] | | | | | [place], [place] | | | | | [address] | | + + + + + | Yina La | ECON | Unknown | | + + + + + | Yina Peterson | ECON | Unknown | | + + + + + | Leatha Casillas | ECON | Unknown | | + + + + + Care Team Providers + +------+ + | Care Supervisor Backfilling Name | Role | Phone | + [...] | [address] | [place] | initial encounter | | | | [place] | [address] | ([facility]) (Primary Dx); | | | | [address] | | Right hip pain; H/O | | | | [phone] | | major orthopedic | | | [...]
--- OUTSIDE RECORDS SUMMARY | ~2019-09-08 | XMS | Encounter Summary ---
Demographics + + + | Address | [address] | | | [place] [address] | + + + | Home Phone [...] Author | [facility] | | | and [place] | + + + | Organization | [facility] | | | and [place] | + + + | Address | Unknown | + + + | Phone | Unavailable | + + + Support + + + + + | Name | Relationship | Address | Phone | + + + + + | India Tilley | ECON | [phone] | | | | | [place], [place] | | | | | [address] | | + + + + + | Yina La | ECON | Unknown | | + + + + + | Yina Peterson | ECON | Unknown | | + + + + + | Leatha Casillas | ECON | Unknown | | + + + + + Care Team Providers + +------+ + | Care Planner/Scheduler Name | Role | Phone | + +------+ + | Renato Pierson | PCP | | + +------+ + Encounter Details +--------+ + + + + | Date | Type | Department | Care Team | Description | +--------+ + + + + | 04/26/ | Orders Only | [facility] | Gopi Muñoz | | | 2019 | | NEPHROLOGY [address] | M, DO [address] [place] | | | | | [address] | [place] | | | | | [place], [place] | [place] | | | | | [address] | [address] | | | | | [phone] | | | +--------+ + + + [...]
--- OUTSIDE RECORDS SUMMARY | ~2019-09-08 | XMS | Encounter Summary ---
Demographics + + + | Address | [address] | | | [place] [address] | + + + | Home Phone [...] | Author | [facility] | | | and [place] | + + + | Organization | [facility] | | | and [place] | + + + | Address | Unknown | + + + | Phone | Unavailable | + + + Support + + + + + | Name | Relationship | Address | Phone | + + + + + | India Tilley | ECON | [address] | | | | | [place], [place] | | | | | [address] | | + + + + + | Yina La | ECON | Unknown | | + + + + + | Yina Peterson | ECON | Unknown | | + + + + + | Leatha Casillas | ECON | Unknown | | + + + + + Care Team Providers + +------+ + | Care Ball Winder Name | Role | Phone | [...] | ([facility]) | | | +--------+--------+ + + [...] SCREWS | | | | [address] | [place] | | | | | [place] | [address] | | | | | [address] | | | | | | [phone] | | | +--------+---------+ + + + [...] Electronically signed by: Scott Koroma, 12/20/2018 12:05 [facility] Scott Koroma MD at 05/2019 12:10 PM PDTdocumented in this encounter Discharge Instructions Instructions Gopi Muñoz DO - . Please keep your old HD appt. at [facility] for 12/12/2018. 2. Call our Office if you change your mind and wish to go to [facility] , for further R ehab. 3. [...] might be d ifferent from the original. [facility] [address] [place] [address] PROGRESS NOTE Pt. Name/Age/: Estefani Tilley 73 y.o. 1945 Med. Record Number: [id number] Date of admission: 12/04/2018 NEPHROLOGY HPI - [...] HD tomorrow and assess for DC soon. [facility] Amol Green MD - 12/08/2018 3:29 [...] going to any Rehab. Ctr after DC. [facility] Scott Tadeo MD - 12/07/2018 8:56 [...] rick, DO - 12/06/2018 5:33 PM PDT [facility] [address] [place] [address] PROGRESS NOTE Pt. Name/Age/: Estefani Tilley 73 y.o. 1945 Med. Record Number: [id number] Date of admission: 12/04/2018 NEPHROLOGY HPI - [...] Lungs: Prolonged expiratory phase, with findings of [place] rales lower 1/4 both lungs. Abdomen: Soft, [...] to go home when felt ap propriate [facility] Scott Tadeo MD - 12/06/2018 8:02 [...] did not want to answer medication history meter technician's questions; eliud ignacioifel d her name. Answered questions with head nods or patients stating that she was not taking a medication. Medication: Prior to Admission Sig: Patient taking differently CAPPER MACHINE OPERATOR as: Atorvastatin 20 mg tablet Take 1 [...] idea what this medication was Best possible CAPPER MACHINE OPERATOR medication list after pharmacy review: PT REPORTED [...] into the vein Three times a w kenaitze. Historical Provider, epoetin karthik (EPOGEN, PROCRIT) 10,000 [...] performed and electronically signed by Kerry Jordan, Analytic Manager 12/05/2018 14:45 Reviewed by Flora Watts, PharmD [...] R?MRN: | | | | | | [id number] | | | [id number] | | | riteri | | | [...] | | | St. | | | [place] | | | y | | | [...] | | | [facility] | | | 3 0 | | | [facility] | | | [facility] | | | [place] | | | y | | | [...] | | | St. | | | [place] | | | y H. | | [...] | | e of | | | ruby | | | | | | mckeon [...] | | | St. | | | [place] | | | y H. | | [...] the | | | | | | doctor of dental medicine | | | al | | | [...] | | | St. | | | [place] | | | y H. | | [...] | | e of | | | ruby | | | | | | mckeon [...] | | | [facility] | | | [facility] | | | [facility] | | | ID | | | [...] | | | [facility] | | | [facility] | | | [facility] | | | ID | | | [...] | | | [facility] | | | [facility] | | | [facility] | | | ID | | | [...] | | | [facility] | | | [facility] | | | [facility] | | | ID | | | [...] | | | [facility] | | | [facility] | | | [facility] | | | ID | | | [...] | | | [facility] | | | MANZANITA | | | | | | HEALTH [...] | | | [id number] | | | [id number] | | | [id number] | | | [...] + | [facility] | [address] | [place] | [phone] | | [facility] | | [address] | | | - LABORATORY | | [...] | | POC | | | STMarianela MULTNAI | | | | | | MEDICAL [...] [address] | [place] | [phone] | | [facility] | | [address] | | | - LABORATORY | | [...] + | [facility] | [address] | [place] | [phone] | | [facility] | | [address] | | | - LABORATORY | | [...] | | POC | | | [facility] | | | | | | MEDICAL [...] [address] | [place] | [phone] | | [facility] | | [address] | | | - LABORATORY | | [...] [address] | [place] | [phone] | | [facility] | | [address] | | | - LABORATORY | | [...] [address] | [place] | [phone] | | [facility] | | [address] | | | - LABORATORY | | [...] ST. | [address] | [place], [place] | [phone] | | [facility] | | [address] | | | - LABORATORY | | [...] | nRBC | | K/uL | [facility] | | | | | | MEDICAL [...] [address] | [place] | [phone] | | [facility] | | [address] | | | - LABORATORY | | [...] + | [facility] | [address] | [place] | [phone] | | [facility] | | [address] | | | - LABORATORY | | [...] [address] | [place] | [phone] | | [facility] | | [address] | | | - LABORATORY | | [...] [address] | [place] | [phone] | | [facility] | | [address] | | | - LABORATORY | | [...] [address] | [place] | [phone] | | [facility] | | [address] | | | - LABORATORY | | [...] + | [facility] | [address] | [place] | [phone] | | [facility] | | [address] | | | - LABORATORY | | [...] | | A1c | | | [facility] | | | | | | MEDICAL [...] [address] | [place] | [phone] | | [facility] | | [address] | | | - LABORATORY | | [...] + | [facility] | [address] | [place] | [phone] | | [facility] | | [address] | | | - LABORATORY | | [...] [address] | [place] | [phone] | | [facility] | | [address] | | | - LABORATORY | | [...] [address] | [place] | [phone] | | [facility] | | [address] | | | - LABORATORY | | [...] + | [facility] | [address] | [place] | [phone] | | [facility] | | [address] | | | - LABORATORY | | [...] [address] | [place] | [phone] | | [facility] | | [address] | | | - LABORATORY | | [...] [address] | [place] | [phone] | | [facility] | | [address] | | | - LABORATORY | | [...] [address] | [place] | [phone] | | [facility] | | [address] | | | - LABORATORY | | [...] + | [facility] | [address] | [place] | [phone] | | [facility] | | [address] | | | - LABORATORY | | [...] mL/min/1.73m2 | [facility] | | | [place] | | | MEDICAL | | | [...] [address] | [place] | [phone] | | [facility] | | [address] | | | - LABORATORY | | [...] + | [facility] | [address] | [place] | [phone] | | [facility] | | [address] | | | - LABORATORY | | [...] [address] | [place] | [phone] | | [facility] | | [address] | | | - LABORATORY | | [...] + + | Performing | Address | City/State/[facility] [[email or web address] | Phone Number | | Organization | | | | + + + + + | [facility] | [address] | [place] | [phone] | | [facility] | | [address] | | | - LABORATORY | | [address] | [place] | [phone] | | [facility] | | [address] | | | - LABORATORY | | [...] | | Dictated and Signed by: Salvatore uNnez MD Electronically signed: | | | 12/04/2018 [...] + | [facility] | [address] | [place] | [phone] | | [facility] | | [address] | | | - LABORATORY | | [...] + | [facility] | [address] | [place] | [phone] | | [facility] | | [address] | | | - LABORATORY | | [...] [address] | [place] | [phone] | | [facility] | | [address] | | | - LABORATORY | | [...] mL/min/1.73m2 | [facility] | | | [place] | | | MEDICAL | | | [...] ST. | [address] | [place], [place] | [phone] | | [facility] | | [address] | | | - LABORATORY | | [...] [address] | [place] | [phone] | | [facility] | | [address] | | | - LABORATORY | | [...] scheduled: AC, NPO, Daytime | | | 3166-4700 Use NIGHT DOSE for | | | doses scheduled: HS, 3AM, | | | Nighttime 3984-0567, | | + +---+ | | | [...] | | | HR < 60, Starting Lusby 12/04/18 at | | | | | [...]
--- OUTSIDE RECORDS SUMMARY | ~2019-09-08 | XMS | Encounter Summary ---
Demographics + + + | Address | [address] | | | [place] [address] | + + + | Home Phone [...] + | Author | [facility] | | | and [place] | + + + | Organization | [facility] | | | and [place] | + + + | Address | Unknown | + + + | Phone | Unavailable | + + + Support + + + + + | Name | Relationship | Address | Phone | + + + + + | India Tilley | ECON | [address] | | | | | [place], [place] | | | | | [address] | | + + + + + | Yina La | ECON | Unknown | | + + + + + | Yina Peterson | ECON | Unknown | | + + + + + | Leatha Casillas | ECON | Unknown | | + + + + + Care Team Providers + +------+ + | Care Certified Paralegal Name | Role | Phone | + +------+ + PCP | Unavailable | + +------+ + Encounter Details +--------+ + + + + | Date | Type | Department | Care Team | Description | +--------+ + + + + | 09/23/ | Hospital | [facility] | | | | 2006 - | Encounter | MED [facility] | | | | | | CENTER [facility] [address] | | | | 10/13/ | | [place] | | | | 2006 | | [address] | | | | | | [phone] | | | +--------+ + + + [...]
--- OUTSIDE RECORDS SUMMARY | ~2019-09-08 | XMS | Encounter Summary ---
Demographics + + + | Address | [address] | | | [place] [address] | + + + | Home Phone [...] + | Author | [facility] | | | and [place] | + + + | Organization | [facility] | | | and [place] | + + + | Address | Unknown | + + + | Phone | Unavailable | + + + Support + + + + + | Name | Relationship | Address | Phone | + + + + + | India Tilley | ECON | [address] | | | | | [place], [place] | | | | | [address] | | + + + + + | Yina La | ECON | Unknown | | + + + + + | Yina Peterson | ECON | Unknown | | + + + + + | Leatha Casillas | ECON | Unknown | | + + + + + Care Team Providers + +------+ + | Care Cranberry Bog Supervisor Name | Role | Phone | [...] 2019 | | [address] | Program Analyst | intervertebral disc | | | | [place] | | (pyogenic), thoracic | | | | [address] | | region ([facility]); | | | | [phone] | | Osteomyelitis of | | | | | | thoracic vertebra | | | | | | ([facility]) | +--------+ + + + + [...] section. | | | | | region ([facility]) | | | | | | [...] section. | | | | | region ([facility]) | | | | | | [...] | | [facility] | | | | Blvd;[place] [address] | | LABORATORY | | + + + + + + + + | Specimen | + + | Blood | + + + + + + + | Performing | Address | City/State/Zipcode | Phone Number | | Organization | | | | + + + + + | REFERENCE LAB | [address] [place] [address] | [place] [address] | [phone] | | [facility] | Blvd[address] | | | | LABORATORY | | | | + + + + + | REFERENCE [facility] | [address] [place] [address] | [place] [address] | | | [facility] | Blvd[address] | [...] REFERENCE | | | | performed at [facility];[address] | | LAB | | | | [place] | | [facility] | | | | [address];[place] [address] | | LABORATORY | | + + + + + + + + | Specimen | + + | Blood | + + + + + + + | Performing | Address | City/State/Zipcode | Phone Number | | Organization | | | | + + + + + | REFERENCE LAB | [address] [place] [address] [facility] | [place] [address] | [phone] | | [facility] | Blvd[address] | | | | LABORATORY | | | | + + + + + | [facility] | [facility] | [place] [address] | | | [facility] | Blvd[address] | [...]
--- OUTSIDE RECORDS SUMMARY | ~2019-09-08 | XMS | Encounter Summary ---
Demographics + + + | Address | [address] | | | [place] [address] | + + + | Home Phone [...] + | Author | [facility] | | | and [place] | + + + | Organization | [facility] | | | and [place] | + + + | Address | Unknown | + + + | Phone | Unavailable | + + + Support + + + + + | Name | Relationship | Address | Phone | + + + + + | India Tilley | ECON | [address] | | | | | [place], [place] | | | | | [address] | | + + + + + | Yina La | ECON | Unknown | | + + + + + | Yina Peterson | ECON | Unknown | | + + + + + | Leatha Casillas | ECON | Unknown | | + + + + + Care Team Providers + +------+ + | Care Cae Engineer Name | Role | Phone | + +------+ + PCP | Unavailable | + +------+ + Encounter Details +--------+ + + + + | Date | Type | Department | Care Team | Description | +--------+ + + + + | 11/07/ | Hospital | [facility] | Peyman Wu, | CHR ISCHEMIC HRT DIS | | 2002 | Encounter | MEDICAL [facility]ENTER | [address] | NOS | | | | CLINICAL DECISION | [address] | | | | | [address] [facility] | [address] | | | | | [place], [place] | [phone] | | | | | [address] | | | | | | [phone] | | | +--------+ + + + [...]
--- OUTSIDE RECORDS SUMMARY | ~2019-09-08 | XMS | Encounter Summary ---
Demographics + + + | Address | [address] | | | [place] [address] | + + + | Home Phone [...] Author | [facility] | | | and [place] | + + + | Organization | [facility] | | | and [place] | + + + | Address | Unknown | + + + | Phone | Unavailable | + + + Support + + + + + | Name | Relationship | Address | Phone | + + + + + | India Tilley | ECON | [address] | | | | | [place], [place] | | | | | [address] | | + + + + + | Yina La | ECON | Unknown | | + + + + + | Yina Peterson | ECON | Unknown | | + + + + + | Leatha Casillas | ECON | Unknown | | + + + + + Care Team Providers + +------+ + | Care Web Developer Name | Role | Phone | + +------+ + PCP | Unavailable | + +------+ + Encounter Details +--------+ + + + + | Date | Type | Department | Care Team | Description | +--------+ + + + + | 03/23/ | Orders Only | [facility] | [place], | Chronic kidney | | 2017 | | NEPHROLOGY [address] | [address] | disease, stage III | | | | [address] | [address], [place] | (moderate) (Primary | | | | [place], [place] | [address] [place], [place] | Dx) | | | | [address] | [address] | | | | | [phone] | | | +--------+ + + + [...] 03/23/2017 2:38 PM PDTRenal Ultrasound scheduled at [facility] on 03/29/17 at 10 AM. docu mented in this encounter Plan of Treatment Not on filedocumented as of this encounter Visit Diagnoses + + | Diagnosis | + + | Chronic kidney disease, stage III (moderate) (HCC) - Primary Chronic kidney disease, | | Stage III (moderate) | + + documented in this encounter"
--- OUTSIDE RECORDS SUMMARY | ~2019-09-08 | XMS | Encounter Summary ---
Demographics + + + | Address | [address] | | | [place] [address] | + + + | Home Phone [...] | Author | [facility] | | | and Kamaljitana | + + + | Organization | [facility] | | | and [place] | + + + | Address | Unknown | + + + | Phone | Unavailable | + + + Support + + + + + | Name | Relationship | Address | Phone | + + + + + | India Campos | ECON | [address] | | | | | [place], [place] | | | | | [address] | | + + + + + | Yina La | ECON | Unknown | | + + + + + | Yina Peterson | ECON | Unknown | | + + + + + | Leatha Casillas | ECON | Unknown | | + + + + + Care Team Providers + +------+ + | Care Aircraft Mechanic Armament Name | Role | Phone | + +------+ + PCP | Unavailable | + +------+ + Reason for Referral Service/Procedure (Routine) +--------+--------+ + + + + | Status | Reason | Specialty | Diagnoses / | Referred By | Referred To | | | | | Procedures | Contact | Contact | +--------+--------+ + + + + | Closed | | Infusion | Diagnoses | [facility], | Arabella Op | | | | Therapy | ESRD (end | MD Nora | Infusion [address] | | | | | stage renal | [address] | [address] | | | | | disease) on | [facility] | [place], | | | | | dialysis | [place], [place] | [place] [address] | | | | | ([facility]) | [address] | Phone: | | | | | | Phone: | [phone] | | | | | | [phone] | Fax: | | | | | | Fax: | [phone] | | | | | | [phone] | | +--------+--------+ + + + + Evaluate & Treat (Routine) +--------+ + + + + + | Status | Reason | Specialty | Diagnoses / | Referred By | Referred To | | | | | Procedures | Contact | Contact | +--------+ + + + + + | Closed | Specialty | Occupational | Diagnoses | [facility], | [facility] | | | Services | Therapy | ESRD (end | MD Nora | HOSPITAL | | | Required | | stage renal | [address] | [address] | | | | | disease) on | [address] | [address] | | | | | dialysis | [place] | [place] | | | | | ([facility]) | [address] | [address] | | | | | Essential | Phone: | Phone: | | | | | hypertension | [phone] | [phone] | | | | | Type 2 | Fax: | Fax: | | | | | diabetes | [phone] | [phone] | | | | | mellitus | [...] | | | | | | | ([facility]) | | | +--------+ + + + + + Evaluate & Treat (Routine) +--------+ + + + + + | Status | Reason | Specialty | Diagnoses / | Referred By | Referred To | | | | | Procedures | Contact | Contact | +--------+ + + + + + | Closed | Specialty | Physical | Diagnoses | [facility], | [facility] | | | Services | Therapy | ESRD (end | MD Nora | HOSPITAL | | | Required | | stage renal | [address] | [address] | | | | | disease) on | [facility] | [address] | | | | | dialysis | [facility] [place] | [place] | | | | | ([facility]) | [address] | [address] | | | | | Essential | Phone: | Phone: | | | | | hypertension | [phone] | [phone] | | | | | Type 2 | Fax: | Fax: | | | | | diabetes | [phone] | [phone] | | | | | mellitus | [...] | | | | | | | ([facility]) | | | +--------+ + + + [...] + + | 05/20/ | Hospital | [facility] | Mirza Retana | Hypoxia; Pulmonary | | 2019 - | Encounter | [facility] | MD Coy [address] | edema with | | | | [address] [place] | [address] [place] | congestive heart | | 05/25/ | | [place] [address] | [place] [address] | failure, NYHA class | | 2019 | | [phone] | [phone] | 4 (HCC); ESRD (end | | | | | | stage renal disease) | | | | | Nora Christina MD | on dialysis ([facility]); | | | | | [address] | Hypertensive | | | | | [place], [place] | urgency, malignant; | | | | | [address] | Anemia in chronic | | | | | | kidney disease, on | | | | | | chronic dialysis | | | | | | ([facility]); Essential | | | | | | hypertension; | | | | | | Osteomyelitis of | | | | | | thoracic region | | | | | | ([facility]); Type 2 | | | | | [...] Christina MD - 05/25/2019 11:24 AM PDT [facility] [place] HOSPITALIST DISCHARGE SUMMARY Pt. Name/Age/: Ara Campos 74 y.o. 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 S/p thoracentesis wit h 1300cc fluid removed, studies c/w transudative effusion. Cytology negative for malignant c ells. No growth on culture thus far. Patient is on room air. Of note, recent echo in March sh owed normal EF. #Hypertensive urgency in the s/o volume overload #ESRD on HD Suspect chronic nonadherence with medications and patient also missed HD FOOD SERVICES MANAGER. SBP 200s on a rrival here. Blood pressure improved after HD, resumption of home medications. Amlodipine an d losartan also added, Nephrology will CTM as outpatient. #Acute metabolic encephalopathy Possibly 2/2 medication as patient received 1mg Ativan at OSH FOOD SERVICES MANAGER. At baseline currently. #Recent osteomyelitis Patient admitted [...] Nephrology Why: Nephrology follow up Contact information: [address] [place] [address] Condition: stable Diet: renal, cc Greater than 30 minutes were spent on discharge and coordination of post-hospital care. Electronically signed by: Nora Christina MD, 05/25/2019 11:24 [facility] documented in this enco unter Discharge Instructions [...] will likely include a biopsy in the [facility] down the line. Nora Christina MD documented [...] capsule by | 180 | 0 | 07/19/20 | | | (PHOSLO) 667 mg | [...] 0.85 mLs into | | 0 | 05/12/20 | | | (EPOGEN, PROCRIT) | the [...] PROTOCOL: AMS/Drug Name - Vancomycin Patient: Ara Jimenez Jarek [id number] Admit: 05/20/2019 20:16 RELEVANT ALLERGIES: Amoxicillin 74 yrs old female patient admitted on 05/20/2019 for shortness of breath. Patient is receiv ing vancomycin starting on 05/24/2019 for osteomyelitis. Patient has a past medical histor y of Anemia, Arthritis, Back pain, Breast cancer ([facility]), Cancer ([facility]), Diabetes (HCC), Heart disease, Hemodialysis patient ([facility]), History of blood clots, Hypercholesteremia, Hypertensio n, Hypothyroidism, Renal failure, Seasonal allergies, and Stroke (cerebrum) ([facility]). . Risk fa ctors for MDR organisms [...] Culture, Body Fluid, Sterile, Smear, with Anaerobes [[id number]] Collected: 05/22/19 150 Order Status: Sent Lab Status: In process Updated: 05/22/19 151 Specimen: Body Fluid from Pleural Fluid, Left Narrative: The following orders were created for panel order Culture, Body Fluid, Sterile, Smear, wit h Anaerobes. Procedure Abnormality Status --------- ------ Culture, Body Fluid, Aerobe[[id number]] Preliminary result Culture, Body Fluid, Bre...[[id number]] In process Please view results for these tests on the individual orders. Culture, Fungus, Smear [[id number]] Collected: 05/22/19 150 Order Status: Sent Lab Status: In process Updated: 05/22/19 1510 Specimen: Body Fluid from Pleural Fluid, Left Culture, Body Fluid, Aerobe [[id number]] Collected: 05/22/19 150 Order Status: Completed Lab Status: Preliminary result Updated: 05/24/19 1038 Specimen: Body Fluid from Pleural Fluid, Left Culture No growth to date Gram Stain Result 4+ White Blood Cells No organisms seen Culture, Body Fluid, Anaerobe [[id number]] Collected: 05/22/19 1509 Order Status: Resulted Lab Status: In process Updated: 05/22/19 1510 Specimen: Body Fluid from Pleural Fluid, Left Culture, MRSA [[id number]] Collected: 05/20/192021 Order Status: Completed Lab Status: Final result Updated: 05/22/19 0753 Specimen: Tissue from Nares Culture Negative for MRSA by chromogenic agar method. 2+ Coagulase positive Staphylococcus Culture, Blood, 2nd Specimen [[id number]] Collected: 05/18/19 1548 Order Status: Completed Lab Status: Final result Updated: 05/24/19545 RESULT NO GROWTH 6 DAYS RESULT Testing performed at [facility];[address] [place] [address];[place] [address] Comment: Testing performed at [facility], [address] [place] [address] Culture, Blood [[id number]] Collected: 05/18/19 1508 Order Status: Completed Lab Status: Final result Updated: 05/24/19545 Specimen: Blood from Antecubital, Right RESULT NO GROWTH 6 DAYS RESULT Testing performed at [facility];[address] [place] [address];[place] [address] Comment: Testing performed at [facility], [address] [place] [address], [place] [address] Culture, Blood [[id number]] Collected: 05/18/19 1447 Order Status: Canceled Lab [...] 05/20/19 2111 05/20/19 2051 05/18/19 1545 WBC -- 4.6 4.8 5.6 6.9 [...] and htn Prior to admission dialysis schedule: [facility] Vancomycin Dosing in HD patients: Loading [...] VSS on r/a.E lectronically signed by Karena Lao RN at 05/24/2019 10:21 PM Gopi Hassan DO - 05/24/2019 10:16 PM PDTRENAL I discussed MRI , CRP, ESR, Cxs, case with his previous ID Chemical Dependency Counselor, Dr. Nick Millre MD . He recommends a CT guided Bx of the T11 or T12 vertebra for H&E and Cx. He suggested that he would not Rx this with further AB Rx until after a Bx. He is not convin [place] that this is infectious, at this point? I called Radiology, and our Rad. does not do CT guided vertebral Bx's here. Therefore, shai kearney confer with [facility] IR, outpt. She was agreeable to staying one more nite for HD and clarif y AB regimen. Vanc. /Cefepime were given, IV, during discussion, after reviewing MRI report but before the phone conversation with Dr. Jung. BP control is better. Her Mental status is very clear. Also had HD x 5 hrs, 2K+, 35 HCO3 a nd tolerated well. [facility] Joo Rodriguez, Search Marketing Specialist - 05/24/2019 3:46 PM PDT VANCOMYCIN PER PHARMACY PROTOCOL: AMS/Drug Name - Vancomycin Patient: Ara Campos [id number] Admit: 05/20/2019 20:16 RELEVANT ALLERGIES: Amoxicillin 74 yrs old female patient admitted on 05/20/2019 for shortness of breath. Patient is receiv ing vancomycin starting on 05/24/2019 for osteomyelitis. Patient has a past medical histor y of Anemia, Arthritis, Back pain, Breast cancer (HCC), Cancer (HCC), Diabetes (HCC), Heart disease, Hemodialysis patient (HCC), History of blood clots, Hypercholesteremia, Hypertensio n, Hypothyroidism, Renal failure, Seasonal allergies, and Stroke (cerebrum) (HCC). . Risk fa ctors for MDR organisms [...] Culture, Body Fluid, Sterile, Smear, with Anaerobes [[id number]] Collected: 05/22/19 150 Order Status: Sent Lab Status: In process Updated: 05/22/191512 Specimen: Body Fluid from Pleural Fluid, Left Narrative: The following orders were created for panel order Culture, Body Fluid, Sterile, Smear, wit h Anaerobes. Procedure Abnormality Status --------- ------ Culture, Body Fluid, Aerobe[[id number]] Preliminary result Culture, Body Fluid, Bre...[[id number]] In process Please view results for these tests on the individual orders. Culture, Fungus, Smear [[id number]] Collected: 05/22/19 150 Order Status: Sent Lab Status: In process Updated: 05/22/19 151 Specimen: Body Fluid from Pleural Fluid, Left Culture, Body Fluid, Aerobe [[id number]] Collected: 05/22/19 150 Order Status: Completed Lab Status: Preliminary result Updated: 05/24/19 1038 Specimen: Body Fluid from Pleural Fluid, Left Culture No growth to date Gram Stain Result 4+ White Blood Cells No organisms seen Culture, Body Fluid, Anaerobe [[id number]] Collected: 05/22/19 150 Order Status: Resulted Lab Status: In process Updated: 05/22/19 151 Specimen: Body Fluid from Pleural Fluid, Left Culture, MRSA [[id number]] Collected: 05/20/192021 Order Status: Completed Lab Status: Final result Updated: 05/22/19 0753 Specimen: Tissue from Nares Culture Negative for MRSA by chromogenic agar method. 2+ Coagulase positive Staphylococcus Culture, Blood, 2nd Specimen [[id number]] Collected: 05/18/19 1548 Order Status: Completed Lab Status: Final result Updated: 05/24/19545 RESULT NO GROWTH 6 DAYS RESULT Testing performed at [facility];[address] [place] [address];[place] [address] Comment: Testing performed at [facility], [address] [place] [address], [place] [address] Culture, Blood [[id number]] Collected: 05/18/19 1508 Order Status: Completed Lab Status: Final result Updated: 05/24/19545 Specimen: Blood from Antecubital, Right RESULT NO GROWTH 6 DAYS RESULT Testing performed at [facility];[address] [place] [address];[place] [address] Comment: Testing performed at [facility], [address] [place] [address], [place] [address] Culture, Blood [[id number]] Collected: 05/18/19 1447 Order Status: Canceled Lab [...] 05/20/19 2248 05/20/19 2111 05/20/19205005/18/19 1545 WBC 4.6 4.8 5.6 6.9 -- [...] BP elevated Prior to admission dialysis schedule: [facility] Vancomycin Dosing in HD patients: Loading [...] Monitoring Protocol Electronically signed by: Joo Bo, Search Marketing Specialist 05/24/2019 15:46Electroni treri signed by Joo Bo, Search Marketing Specialist at 05/24/2019 4:49 PM Kwame Guerin MD - 05/24/2019 11:04 AM PDTFormatting of this note might be different from the origin al. [facility] [place] HOSPITALIST PROGRESS NOTE Patient: Ara Campos : 1945: Age: 74 y.o. MedRec: [id number] Admission date: 05/20/2019 Hospital day # : [...] as patient received 1mg Ativan at OSH FOOD SERVICES MANAGER. At baseline currently. #Recent osteomyelitis Patient admitted with T11-12 osteomyelitis and completed 6 weeks vanc/cefepime. Rep eat MRI again redemonstrated possible osteomyelitis - vanc and cefepime have been resumed, Deepa Muñoz is discussing case with ID. #Diabetes Blood sugars at goal. CCM. Patient is again very upset [facility] and is eating little to [...] BID Gopi Muñoz DO 5 mg at 0904 aspirin EC tablet 81 mg 81 mg Oral Daily Olegario Peng MD 81 mg at 05/24/19 0904 calcium acetate (PHOSLO) capsule 667 mg 667 mg Oral TID WC Olegario Peng MD 667 m g at 05/24/19 0909 cholecalciferol (VITAMIN D-3) tablet 2,000 Units 2,000 Units Oral Daily Olegario jimenez MD 2,000 Units at 05/24/19 0904 cloNIDine (CATAPRES) 0.1 mg/24 hr 1 patch 1 patch Transdermal Weekly Olegario Pegn MD 1 patch at 05/20/192113 cloNIDine (CATAPRES) 0.2 mg/24 hr 1 patch 1 patch Transdermal Weekly Olegario Peng MD 1 patch at 05/20/192103 dextrose 50% injection 12.5-25 g 12.5-25 g [...] 4x D aily WC and HS Olegario ePng MD labetalol (NORMODYNE) tablet 300 mg 300 [...] PRN Gopi Muñoz DO 1 tablet at 05/24/19 0754 pantoprazole (PROTONIX) [...] Intravenous Q30 Min PRN Gopi oconnell DO vancomycin per pharmacy Other Pharmacy Consult [...] Culture, Body Fluid, Sterile, Smear, with Anaerobes [[id number]] Collected: 05/22/19 150 Order Status: Sent Lab Status: In process Updated: 05/22/191512 Specimen: Body Fluid from Pleural Fluid, Left Narrative: The following orders were created for panel order Culture, Body Fluid, Sterile, Smear, wit h Anaerobes. Procedure Abnormality Status --------- ------ Culture, Body Fluid, Aerobe[[id number]] Preliminary result Culture, Body Fluid, Bre...[[id number]] In process Please view results for these tests on the individual orders. Culture, Fungus, Smear [[id number]] Collected: 05/22/19 150 Order Status: Sent Lab Status: In process Updated: 05/22/191509 Specimen: Body Fluid from Pleural Fluid, Left Culture, Body Fluid, Aerobe [[id number]] Collected: 05/22/19 1509 Order Status: Completed Lab Status: Preliminary result Updated: 05/24/19 1038 Specimen: Body Fluid from Pleural Fluid, Left Culture No growth to date Gram Stain Result 4+ White Blood Cells No organisms seen Culture, Body Fluid, Anaerobe [[id number]] Collected: 05/22/19 1509 Order Status: Resulted Lab Status: In process Updated: 05/22/19 1510 [...] rate 6L/min Nora Christina MD 05/24/2019 11:04 [facility] Michelle Solorzano Phar mD - 05/23/2019 6:27 [...] and direction ? Pharmacy list names: [facility] ([facility]) ? [employer] insurance reported information Vaccines up [...] Tobacco & Alcohol use/frequency: ? Recreational substances: Sjcoqlado-pamfojr-qrjn asked how much or how often patient sta rich "I smoke as much as I want" Other: No changes to FOOD SERVICES MANAGER list, due to the fact that patient was very non compliant. She either di d not want to take her medications, or she stated that she did not know if she was taking th em. She did not want to do the interview. Best possible FOOD SERVICES MANAGER medication list after pharmacy review: Medication review performed and electronically signed by Kerry Jordan, Alarm Signaler 05/23/2019 16:20 Reviewed by Michelle Ochoa, PharmD 05/23/2019 18:26 Nora Guerin MD - 05/23/2019 3:20 PM PDT [place], [place] HOSPITALIST PROGRESS NOTE Patient: Ara Campos : 1945: Age: 74 y.o. MedRec: [id number] Admission date: 05/20/2019 Hospital day # : [...] as patient received 1mg Ativan at OSH FOOD SERVICES MANAGER. At baseline currently. #Recent osteomyelitis Patient admitted [...] tablet 5 mg 5 mg Oral BID Goip Muñoz DO 5 mg at 0835 aspirin [...] Weekly Olegario Peng MD 1 patch at 05/20/192103 dextrose 50% injection 12.5-25 g 12.5-25 g [...] Culture, Body Fluid, Sterile, Smear, with Anaerobes [[id number]] Collected: 05/22/191508 Order Status: Sent Lab Status: In process Updated: 05/22/191512 Specimen: Body Fluid from Pleural Fluid, Left Narrative: The following orders were created for panel order Culture, Body Fluid, Sterile, Smear, wit h Anaerobes. Procedure Abnormality Status --------- ------ Culture, Body Fluid, Aerobe[[id number]] Preliminary result Culture, Body Fluid, Bre...[[id number]] In process Please view results for these tests on the individual orders. Culture, Fungus, Smear [[id number]] Collected: 05/22/191508 Order Status: Sent Lab Status: In process Updated: 05/22/191509 Specimen: Body Fluid from Pleural Fluid, Left Culture, Body Fluid, Aerobe [[id number]] Collected: 05/22/191508 Order Status: Completed Lab Status: Preliminary result Updated: 05/23/19902 Specimen: Body Fluid from Pleural Fluid, Left Culture No growth to date Gram Stain Result 4+ White Blood Cells No organisms seen Culture, Body Fluid, Anaerobe [[id number]] Collected: 05/22/191508 Order Status: Resulted Lab Status: In process Updated: 09/09/19 1510 Specimen: Body Fluid from Pleural Fluid, Left Culture, MRSA [[id number]] Collected: 05/20/192021 Order Status: Completed Lab Status: Final result Updated: 05/22/19 0756 Specimen: Tissue from Nares Culture Negative for [...] on room air at flow rate 0.5L/min Nora Christina MD 05/23/2019 15:20 [facility] documented in this enco unter Plan of [...] | | | | dialysis ([facility]) | | | | | | Essential [...] | | | | | | insulin ([facility]) | | + + +--------+ + + | Ambulatory referral | Outpatient | Routin | ESRD (end stage | Ordered: 05/25/2019 | | to Occupational | Referral | e | renal disease) on | | | Therapy | | | dialysis ([facility]) | | | | | | Essential [...] | LABS - EXTERNAL SCAN | | 02/24/2019 | | Results for this | | | | 12:00 AM | | procedure are in the | | | | PDT | | results section. | + +--------+ + + + | IMAGING REPORT - | | 11/23/2018 | | Results for this | | EXTERNAL SCAN | | 12:00 AM | | procedure are in the | | | | PDT | | results section. | + +--------+ + + + | ECHO-EXTERNAL SCAN | | 08/31/2018 | | Results for this | | [...] + | [facility] | [address] | [place] | [phone] | | [facility] | | [address] | | | - LABORATORY | | | | + + + + + POC Glucose (05/25/2019 7:38 AM PDT) + +-------+ + + + | Component | Value | Ref Range | Performed | Pathologist | | | | | At | Signature | + +-------+ + + + | Glucose, | 102 | 70 - 109 mg/dL | [facility] | | | POC | | | [facility] | | | | | | [...] + | [facility] | [address] | [place] | [phone] | | [facility] | | [address] | | | - LABORATORY | | [...] 21 | 9 - 23 mg/dL | [facility] | [facility] | | [facility] | | | | | MEDICAL | | | | | | C[facility] - | | | | | | LABORATORY | | + + + + + + | Creatinine | 4.14 (H) | 0.55 - 1.02 | [facility] | | | | | mg/dL | [facility] | | | | | | MEDICAL | | | | | | CENTER - | | | | | | LABORATORY | | + + + + + + | eGFR if not | 11 (L)Comment: | >=60 | [facility] | | | | GLOMERULAR FILTRATION | mL/min/1.73m2 | [facility] | | | [place] | RATE,ESTIMATED | | MEDICAL | | | | mL/min/1.18f4Jgig than | | CENTER - | | [...] 8.6 (L) | 8.7 - 10.4 | [facility] | | | | | mg/dL | [facility] | | | | | | MEDICAL | | | | | | CENTER - | | | | | | LABORATORY | | + + + + + + | Albumin | 3.1 (L) | 3.2 - 4.8 g/dL | [facility] | | | | | | [facility] | | | | | | [...] + | [facility] | [address] | [place] | [phone] | | [facility] | | [address] | | | - LABORATORY | | [...] + | [facility] | [address] | [place] | [phone] | | [facility] | | [address] | | | - LABORATORY | | [...] [address] | [place] | [phone] | | [facility] | | [address] | | | - LABORATORY | | [...] ST. | [address] | [place], [place] | [phone] | | [facility] | | [address] | | | - LABORATORY | | [...] + | [facility] | [address] | [place] | [phone] | | [facility] | | [address] | | | - LABORATORY | | [...] (H) | 9 - 23 mg/dL | [facility] | | | | | | [facility] | | | | | | MEDICAL | | | | | | CENTER - | | | | | | LABORATORY | | + + + + + + | Creatinine | 6.78 (H) | 0.55 - 1.02 | [facility] | | | | | mg/dL | [facility] | | | | | | MEDICAL | | | | | | CENTER - | | | | | | LABORATORY | | + + + + + + | eGFR if not | 6 (L)Comment: GLOMERULAR | >=60 | [facility] | | | | FILTRATION | mL/min/1.73m2 | [facility] | | | [place] | RATE,ESTIMATED | | MEDICAL | | | | mL/min/1.20t0Sddn than | | CENTER - | | [...] (L) | 3.2 - 4.8 g/dL | [facility] | | | | [...] | LABORATORY | | | | Rajni Doty. | | | | + + + [...] + | [facility] | [address] | [place] | [phone] | | [facility] | | [address] | | | - LABORATORY | | [...] | | | | M/uL | [facility] | | | | [...] [address] | [place] | [phone] | | [facility] | | [address] | | | - LABORATORY | | [...] [address] | [place] | [phone] | | [facility] | | [address] | | | - LABORATORY | | [...] [address] | [place] | [phone] | | [facility] | | [address] | | | - LABORATORY | | [...] 82 | 70 - 109 mg/dL | [facility] [...] [address] | [place] | [phone] | | [facility] | | [address] | | | - LABORATORY | | | | + + + + + POC Glucose (05/23/2019 6:39 AM PDT) + +-------+ + + + | Component | Value | Ref Range | Performed | Pathologist | | | | | At | Signature | + +-------+ + + + | Glucose, | 77 | 70 - 109 mg/dL | [facility] [...] + | [facility] | [address] | [place] | [phone] | | [facility] | | [address] | | | - LABORATORY | | [...] 5.83 (H) | 0.55 - 1.02 | [facility] [...] | | | FILTRATION | mL/min/1.73m2 | [facility] | | | [place] | RATE,ESTIMATED | | MEDICAL | | | | mL/min/1.78g0Ovck than | | CENTER - | | [...] (L) | 3.2 - 4.8 g/dL | [facility] | | | | | | [facility] | | | | | | MEDICAL | | | | | | CENTER - | | | | | | LABORATORY | | + + + + + + | Phosphorus | 8.0 ()Comment: | 2.4 - 5.1 mg/dL | [...] + | [facility] | [address] | [place] | [phone] | | [facility] | | [address] | | | - LABORATORY | | | | + + + + + CBC with Differential (05/23/2019 5:10 AM PDT) + + + + + + | Component | Value | Ref Range | Performed | Pathologist | | | | | At | Signature | + + + + + + | WBC | 4.8 | 4.0 - 11.0 K/uL | [facility] [...] | 0.00 | 0.00 - 0.01 | [facility] | | | nRBC | | K/uL | [facility] | | | | | | MEDICAL [...] [address] | [place] | [phone] | | [facility] | | [address] | | | - LABORATORY | | [...] [address] | [place] | [phone] | | [facility] | | [address] | | | - LABORATORY | | [...] ST. | [address] | [place] | [phone] | | [facility] | | [address] | | | - LABORATORY | | [...] | | | FLUID | | | [facility] | | | | | | MEDICAL | | | | | | CENTER - | | | | | | LABORATORY | | + + + + + + | Specimen | Pleural Fluid, Left | | [facility] | | | Source | | | [...] [address] | [place] | [phone] | | [facility] | | [address] | | | - LABORATORY | | [...] + + | Performed at: 02 - [facility] [address], | REFERENCE LAB | | [place], [place] [id number] Electrical Maintenance Worker: Violette Mcconnell MD, Phone: | [facility] | | [phone] | | + + + + + + + + | Performing | Address | City/State/Zipcode | Phone Number | | Organization | | | | + + + + + | REFERENCE LAB | [address] | [place] [address] | [phone] | | [facility] | Drive [...] + + | Performed at: 01 - [place] [place] [address], | REFERENCE LAB | | [place], [place] [id number] Electrical Maintenance Worker: Ernie Lee MD, Phone: | [facility] | | [phone] | | + + + + + + + + | Performing | Address | City/State/Zipcode | Phone Number | | Organization | | | | + + + + + | REFERENCE LAB | [address] | [place] [address] | [phone] | | [facility] | Drive [...] ST. | [address] | [place], [place] | [phone] | | [facility] | | [address] | | | - LABORATORY | | [...] [address] | [place] | [phone] | | [facility] | | [address] | | | - LABORATORY | | [...] | + + + | Performed at: [facility] [place] [address], | REFERENCE LAB | | [place], [place] [id number] Electrical Maintenance Worker: Ernie Lee MD, Phone: | [facility] | | [phone] Performed at: [address] | | | [place] [id number] Electrical Maintenance Worker: Violette Mcconnell MD, | | | Phone: [phone] | | + + + + + + + + | Performing | Address | City/State/Zipcode | Phone Number | | Organization | | | | + + + + + | REFERENCE LAB | [address] | [place] [address] | [phone] | | [facility] | [facility] | | | + + + [...] ST. | [address] | [place], [place] | [phone] | | [facility] | | [address] | | | - LABORATORY | | [...] [address] | [place] | [phone] | | [facility] | | [address] | | | - LABORATORY | | [...] + | [facility] | [address] | [place] | [phone] | | [facility] | | [address] | | | - LABORATORY | | [...] | | | POC | | | [facility] | | | | | | [...] + | [facility] | [address] | [place] | [phone] | | [facility] | | [address] | | | - LABORATORY | | [...] 4.82 (H) | 0.55 - 1.02 | [facility] [...] | | | FILTRATION | mL/min/1.73m2 | [facility] | | | MACAN[facility] | RATE,ESTIMATED | | MEDICAL | | | | mL/min/1.43h4Jzfb than | | CENTER - | | [...] + | [facility] | [address] | [place] | [phone] | | [facility] | | [address] | | | - LABORATORY | | [...] | nRBC | | K/uL | [facility] | | | | | | MEDICAL [...] [address] | [place] | [phone] | | [facility] | | [address] | | | - LABORATORY | | [...] [address] | [place] | [phone] | | [facility] | | [address] | | | - LABORATORY | | | | + + + + + POC Glucose (05/21/2019 4:57 PM PDT) + +-------+ + + + | Component | Value | Ref Range | Performed | Pathologist | | | | | At | Signature | + +-------+ + + + | Glucose, | 84 | 70 - 109 mg/dL | [facility] [...] [address] | [place] | [phone] | | [facility] | | [address] | | | - LABORATORY | | [...] ST. | [address] | [place], [place] | [phone] | | [facility] | | [address] | | | - LABORATORY | | | | + + + + + POC Glucose (05/21/2019 6:34 AM PDT) + +-------+ + + + | Component | Value | Ref Range | Performed | Pathologist | | | | | At | Signature | + +-------+ + + + | Glucose, | 104 | 70 - 109 mg/dL | [facility] [...] [address] | [place] | [phone] | | [facility] | | [address] | | | - LABORATORY | | | | + + + + + Sedimentation Rate (05/21/2019 4:15 AM PDT) + +--------+ + + + | Component | Value | Ref Range | Performed | Pathologist | | | | | At | Signature | + +--------+ + + + | ESR | 48 (H) | <30 mm/hr | [facility] | [...] + | [facility] | [address] | [place] | [phone] | | [facility] | | [address] | | | - LABORATORY | | [...] + + | [facility] | [address] | [place] | [phone] | | [facility] | | [address] | | | - LABORATORY | | [...] 105 | 60 - 106 mg/dL | [facility] [...] | | | FILTRATION | mL/min/1.73m2 | [facility] | | | [place] | RATE,ESTIMATED | | MEDICAL | | | | mL/min/1.34p0Vhwo than | | CENTER - | | [...] + + + | Phosphorus | 9.0 (HH)Comment: | 2.4 - 5.1 mg/dL | [...] [address] | [place] | [phone] | | [facility] | | [address] | | | - LABORATORY | | [...] + | [facility] | [address] | [place] | [phone] | | [facility] | | [address] | | | - LABORATORY | | [...] (H)Comment: Usual | 0.9 - 1.1 | [facility] | | | | Oral Anticoagulation | | [facility] | | | | Range: 2.0 - [...] [address] | [place] | [phone] | | [facility] | | [address] | | | - LABORATORY | | [...] + | [facility] | [address] | [place] | [phone] | | [facility] | | [address] | | | - LABORATORY | | [...] | | Lymphocytes | | K/uL | . [facility] | | | | | | MEDICAL | | | | | | CENTER - | | | | | | LABORATORY | | + + + + + + | Absolute | 0.35 | 0.00 - 1.00 | [facility] | | | Monocytes | | K/uL | . [facility] | [...] ST. | [address] | [place] | [phone] | | [facility] | | [address] | | | - LABORATORY | | [...] | this [facility] on | | | May 21, 2019 at 0200 hours. Dictated and Signed by: Arun Wang | | MD Naveen Electronically signed: 05/21/2019 10:22 AM | | [...] PHYSICIAN: Gopi Muñoz MD PATIENT NAME: | [place] [facility] | | ARA CAMPOS GENDER: Mami : 1945 | INCYTE | [...] preparation was | | | performed by [facility] [address] [place] [address] | | | [place] [address] and [facility] [address] [facility] | | | [place] [address]. Professional interpretation was performed | | | by [facility] - [facility] - [address] [facility] | | | [place] [address] (Cupola Liner Helper: Alen Simpson, | | | .; IA#:[id number]).8 Diagnostician: Darcie López M.S., | | | CT(ASCP), [facility] Beef Tagger Diagnostician: Alen Kearney | | | Calvin [...] | 52 (H) | <30 mm/hr | [facility] | [...] ST. | [address] | [place], [place] | [phone] | | [facility] | | [address] | | | - LABORATORY | | [...] RIGHT ATRIUM. Dictated and Signed by: Arun Hodge MD Electronically signed: 05/21/2019 5:53 AM | | [...] + | [facility] | [address] | [place] | [phone] | | [facility] | | [address] | | | - LABORATORY | | | | + + + + + C-Reactive Protein (05/20/2019 9:11 PM PDT) + + + + + + | Component | Value | Ref Range | Performed | Pathologist | | | | | At | Signature | + + + + + + | CRP | 51.20 (H) | <10.00 mg/L | [facility] | [...] [address] | [place] | [phone] | | [facility] | | [address] | | | - LABORATORY | | [...] + | [facility] | [address] | [place] | [phone] | | [facility] | | [address] | | | - LABORATORY | | [...] | | | | uIU/mL | [facility] | | | | | | MEDICAL [...] [address] | [place] | [phone] | | [facility] | | [address] | | | - LABORATORY | | [...] | | Screen | | | [facility] | | [...] + | [facility] | [address] | [place] | | | [facility] | | [address] | | | - BLOOD BANK | [...] | | | | Comment:Reference | | [facility] | | | | Ranges: 0.00-0.06 [...] + | [facility] | [address] | [place], [place] | [phone] | | [facility] | | [address] | | | - LABORATORY | | [...] | | Critical Result called | | [facility] | | | | to and read [...] [address] | [place] | [phone] | | [facility] | | [address] | | | - LABORATORY | | | | + + + + + Magnesium (05/20/2019 8:51 PM PDT) + +-------+ + + + | Component | Value | Ref Range | Performed | Pathologist | | | | | At | Signature | + +-------+ + + + | Magnesium | 2.2 | 1.6 - 2.6 mg/dL | [facility] [...] + | [facility] | [address] | [place] | [phone] | | [facility] | | [address] | | | - LABORATORY | | | | + + + + + B Type Natriuretic Peptide (05/20/2019 8:51 PM PDT) + + + + + + | Component | Value | Ref Range | Performed | Pathologist | | | | | At | Signature | + + + + + + | BNP | >5000 (H) | <100 pg/mL | [facility] | | [...] [address] | [place] | [phone] | | [facility] | | [address] | | | - LABORATORY | | [...] [address] | [place] | [phone] | | [facility] | | [address] | | | - LABORATORY | | [...] (H) | 9 - 23 mg/dL | [facility] | | | | | | [facility] | | | | | | MEDICAL | | | | | | CENTER - | | | | | | LABORATORY | | + + + + + + | Creatinine | 7.11 (H) | 0.55 - 1.02 | [place] | | | | | mg/dL | [facility] | | | | | | MEDICAL | | | | | | CENTER - | | | | | | LABORATORY | | + + + + + + | eGFR if not | 6 (L)Comment: GLOMERULAR | >=60 | [place] | | | | FILTRATION | mL/min/1.73m2 | [facility] | | | [place] | RATE,ESTIMATED | | MEDICAL | | | | mL/min/1.71w6Lojo than | | CENTER - | | [...] + | [facility] | [address] | [place] | [phone] | | [facility] | | [address] | | | - LABORATORY | | [...] [address] | [place] | [phone] | | [facility] | | [address] | | | - LABORATORY | | [...] | chromogenic agar method. | | [facility] | | | [...] [address] | [place] | [phone] | | [facility] | | [address] | | | - LABORATORY | | | | + + + + + IMAGING REPORT - EXTERNAL SCAN (05/20/2019 12:00 AM PDT) + + + | Narrative | Performed At | + + + | Ordered by an | | | unspecified provider. | | + + + LABS - EXTERNAL SCAN (02/24/2019 12:00 AM PDT) + + + | Narrative | Performed At | + + + | Ordered by an | | | unspecified provider. | | + + + IMAGING REPORT - EXTERNAL SCAN (11/23/2018 12:00 AM PDT) + + + | Narrative | Performed At | + + + | Ordered by an | | | unspecified provider. | | + + + ECHO-EXTERNAL SCAN (08/31/2018 12:00 AM PST) + + + | Narrative | Performed At | + + + | Ordered by an | | | unspecified provider. | | + + + documented in this encounter Visit Diagnoses + + | Diagnosis | + + | Hypoxia Hypoxemia | + + | Pulmonary edema with congestive heart failure, NYHA class 4 (HCC) Congestive heart | | failure, unspecified | + + | ESRD (end stage renal disease) on dialysis (HCC) End stage renal disease | + + | Hypertensive urgency, malignant Essential hypertension, malignant | + + | Anemia in chronic kidney disease, on chronic dialysis (HCC) | + + | Essential hypertension Unspecified essential hypertension | + + | Osteomyelitis of thoracic region (HCC) | + + | Type 2 diabetes mellitus with stage 4 chronic kidney disease, with long-term current | | use of insulin (HCC) | + + | DM (diabetes mellitus), type 2 (HCC) Type II or unspecified type diabetes mellitus | | without mention of complication, not stated as uncontrolled | + + documented in this encounter [...] amLODIPine (NORVASC) tablet 5 | Given | 05/21/20 | 5 mg | | | | mg 5 mg, Oral, ONCE, 05/21/19 | | 19 11:17 | | | | | at 1130, For 1 dose | | AM PDT | | | | + +-------+ +------+---+---+ +---+---+ | | | +---+---+ + +-------+ +------+---+---+ | amLODIPine (NORVASC) tablet [...] 1 g in | New Bag | 05/24/20 | 1 g | 100 | | | sodium chloride 0.9% 50 mL IVPB | | 19 12:20 | | mL/hr | | | 1 g, Intravenous, Administer over | | PM PDT | | | | | 30 Minutes, EVERY 24 HOURS | | | | | | | (Daily), First dose on Wed | | | | | | | 05/24/19 at 1215, To begin after | | | | | | | dialysis on dialysis days. | | | | | | | [...] Starting Sat | | | 05/20/19 at 2040, For blood glucose | | | 50-69 mg/dl - give 12.5 g For | | | blood glucose less than 50 mg/dl | | | - give 25 g, | | + +---+ | | | + +---+ + +-------+ +--------+---+---+ | fentaNYL (PF) injection PRN, | Given | 05/23/20 | 50 mcg | | | | Starting 05/23/19 at 1650 | | 19 4:50 | | | | | | | [...] | heparin 1,000 units/mL | Given | 05/21/20 | 1,000 | | | | injection 1,000 Units 1,000 | | 19 9:05 | Units | | | | Units, Intravenous, ONCE, Sun | | AM PDT | | | | | 05/21/19 at 0745, For 1 dose, While | | | | | | | on NxStage Tx., Dialysis | | | | | | + +-------+ +--------+---+---+ +---+---+ | | | +---+---+ + +-------+ +--------+---+---+ | heparin 1,000 units/mL | Given | 05/24/20 | 1,000 | | | | injection 1,000 Units 1,000 | | 19 4:31 | Units | | | | Units, Intravenous, ONCE, Wed | | PM PDT | | | | | 05/24/19 at 1545, For 1 dose, | | | | | | | While on NxStage Tx., Dialysis | | | | | | + +-------+ +--------+---+---+ +---+---+ | | | +---+---+ + +---------+ + +---------+---+ | heparin 100 Units/mL in sodium | New Bag | 05/21/20 | 400 | 4 mL/hr | | | chloride 0.9% 100 mL infusion | | 19 9:06 | Units/hr | | | | 400 Units/hr (4 mL/hr), at 4 | | AM PDT | | | | | mL/hr, Intravenous, DIALYSIS - | | | | | | | CONTINUOUS, Starting 05/21/19 | | | | | | | at 0745, For 1 day, While on | | [...] | heparin 5,000 units/mL | Given | 05/21/20 | 5,000 | | Abdomen- | | injection 5,000 Units 5,000 | | 19 7:56 | Units | | RLQ | | Units, Subcutaneous, EVERY 12 | | PM PDT | | | | | HOURS (2 times per day), First | | | | | | | dose on 05/21/19 at 0900 | | | | | | + +-------+ +--------+---+ + +-------+ +--------+---+ + | Given | 05/21/20 | 5,000 | | Abdomen- | | | 19 8:14 | Units | | LLQ | | | AM PDT | | | | +-------+ +--------+---+ [...] | | +---+---+ + +-------+ +--------+---+---+ | iohexol (OMNIPAQUE 350) 350 | Given | 05/21/20 | 75 mLs | | | | mg/mL injection 75 mL 75 mL, | | 19 12:41 | | | | | Intravenous, ONCE PRN, Other, | | AM PDT | | | | | Starting 05/21/19 at 0040, For | | | | | | | 1 dose, Cat Scanner | | | | | | + [...] labetalol (TRANDATE) 5 mg/mL | Given | 05/20/20 | 10 mg | | | | injection 10 mg 10 mg, | | 19 8:45 | | | | | Intravenous, ONCE, 05/20/19 at | | PM PDT | | | | | 2045, For 1 dose | | | | [...] (PF) 1% injection 5 | Given | 05/21/20 | 5 mLs | | | | mL 5 mL, Infiltration, ONCE, Sun | | 19 8:59 | | | | | 05/21/19 at 0745, For 1 dose, | | AM PDT | | | | | While on NxStage Tx., Dialysis | | | | | | + +-------+ +-------+---+---+ +---+---+ | | | +---+---+ + +-------+ +-------+---+---+ | lidocaine (PF) 1% injection 5 | Given | 05/24/20 | 2 mLs | | | | mL 5 mL, Infiltration, ONCE, Wed | | 19 4:37 | | | | | 05/24/19 at 1545, For 1 dose, | | PM PDT | | | | | While [...] +-------+ +--------+---+---+ | Given | 05/24/20 | 100 mg | | | | [...] (COZAAR) tablet 50 mg | Given | 05/21/20 | 50 mg | | | | 50 mg, Oral, DAILY, First dose | | 19 5:39 | | | | | on 05/21/19 at 1730 | | PM PDT | | | | + +-------+ +-------+---+---+ +---+---+ | | | +---+---+ + +-------+ +-------+---+---+ | losartan (COZAAR) tablet 50 mg | Given | 05/21/20 | 50 mg | | | | 50 mg, Oral, ONCE, [place] 05/21/19 at | | 19 7:55 | | | | | 2000, For 1 dose | | PM PDT [...] midazolam (VERSED) 1 mg/mL | Given | 05/23/20 | 1 mg | | | | injection PRN, Starting Tue | | 19 4:54 | | | | | 05/23/19 at 1651 | | PM PDT | | | | + +-------+ +------+---+---+ +-------+ +------+---+---+ | Given | 05/23/20 | 2 mg | | | | | 19 4:48 | | | | | | PM [...] | | | + +---+ + +---------+ + +-------+---+ | vancomycin 1,250 mg in sodium | New Bag | 05/24/20 | 1,250 mg | 175 | | | chloride 0.9% 250 mL IVPB 250 | | 19 5:39 | | mL/hr | | | mg, Intravenous, Administer over | | PM PDT | | | | | 90 Minutes, ONCE, 05/24/19 at | | | | | | | 2100, For 1 dose, If dialysis | | | | | | | ordered 05/24, please alert | | | | | | | pharmacy and give dose after | | | | | | | dialysis. Keep in refrigerator., | | | | | | | Indications: Osteomyelitis | | | | | | + +---------+ + +-------+---+ +---+---+ | | | +---+---+ + +---------+ +--------+-------+---+ | vancomycin 500 mg in sodium | New Bag | 05/25/20 | 500 mg | 100 | | | chloride 0.9% 100 mL IVPB 500 | | 19 4:13 | | mL/hr | | | mg, Intravenous, Administer over | | AM PDT | | | | | 60 Minutes, ONCE, [facility] 05/25/19 at | | | | | | | 0400, For 1 dose, Activate system | | | | | | | and mix before use., | | | | | | | Indications: Osteomyelitis | | | | | | + +---------+ +--------+-------+---+ +---+---+ | | | +---+---+ documented in this encounter
--- OUTSIDE RECORDS SUMMARY | ~2019-09-08 | XMS | Encounter Summary ---
Demographics + + + | Address | [address] | | | [place] [address] | + + + | Home Phone [...] + | Author | [facility] | | | and [place] | + + + | Organization | [facility] | | | and [place] | + + + | Address | Unknown | + + + | Phone | Unavailable | + + + Support + + + + + | Name | Relationship | Address | Phone | + + + + + | India Campos | ECON | [address] | | | | [place], [place] | | | | | [address] | | + + + + + | Yina La | ECON | Unknown | | + + + + + | Yina Peterson | ECON | Unknown | | + + + + + | Leatha Casillas | ECON | Unknown | | + + + + + Care Team Providers + +------+ + | Care Gearcase Assembler Name | Role | Phone | [...] | | | | | [address] | [address] | | | | | [place], [place] | [place] [address] | | | | | [address] | [phone] | | | | | [phone] | | | +--------+---------+ + + + [...] Christina MD - 05/25/2019 11:24 AM PDT [place] HOSPITALIST DISCHARGE SUMMARY Pt. 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 S/p thoracentesis wit h 1300cc fluid removed, studies c/w transudative effusion. Cytology negative for malignant c ells. No growth on culture thus far. Patient is on room air. Of note, recent echo in March sh owed normal EF. #Hypertensive urgency in the s/o volume overload #ESRD on HD Suspect chronic nonadherence with medications and patient also missed HD PROJECT CONTROL ANALYST. SBP 200s on a rrival here. Blood pressure improved after HD, resumption of home medications. Amlodipine an d losartan also added, Nephrology will CTM as outpatient. #Acute metabolic encephalopathy Possibly 2/2 medication as patient received 1mg Ativan at OSH PROJECT CONTROL ANALYST. At baseline currently. #Recent osteomyelitis Patient admitted [...] information: [address] [place] [address] Condition: stable Diet: renal, cc Greater than 30 minutes were spent on discharge and coordination of post-hospital care. Electronically signed by: Nora Christina MD, 05/25/2019 11:24 [facility] documented in this enco unter Discharge [...] will likely include a biopsy in the [facility] down the line. Nora Christina MD [...] of Anemia, Arthritis, Back pain, Breast cancer ([facility]), Cancer ([facility]), Diabetes ([facility]), Heart disease, Hemodialysis patient ([facility]), History of blood clots, Hypercholesteremia, Hypertensio n, Hypothyroidism, Renal failure, Seasonal allergies, and Stroke (cerebrum) ([facility]). . Risk fa ctors for MDR organisms [...] Culture, Body Fluid, Sterile, Smear, with Anaerobes [[id number]] Collected: 05/22/19 1509 Order Status: Sent Lab Status: In process Updated: 05/22/19 151 Specimen: Body Fluid from Pleural Fluid, Left Narrative: The following orders were created for panel order Culture, Body Fluid, Sterile, Smear, wit h Anaerobes. Procedure Abnormality Status --------- ------ Culture, Body Fluid, Aerobe[[id number]] Preliminary result Culture, Body Fluid, Bre...[[id number]] In process Please view results for these tests on the individual orders. Culture, Fungus, Smear [[id number]] Collected: 05/22/19 150 Order Status: Sent Lab Status: In process Updated: 05/22/19 151 Specimen: Body Fluid from Pleural Fluid, Left Culture, Body Fluid, Aerobe [[id number]] Collected: 05/22/19 150 Order Status: Completed Lab Status: Preliminary result Updated: 05/24/19 1038 Specimen: Body Fluid from Pleural Fluid, Left Culture No growth to date Gram Stain Result 4+ White Blood Cells No organisms seen Culture, Body Fluid, Anaerobe [[id number]] Collected: 05/22/19 150 Order Status: Resulted Lab Status: In process Updated: 05/22/19 151 Specimen: Body Fluid from Pleural Fluid, Left Culture, MRSA [[id number]] Collected: 05/20/192021 Order Status: Completed Lab Status: Final result Updated: 05/22/19 0753 Specimen: Tissue from Nares Culture Negative for MRSA by chromogenic agar method. 2+ Coagulase positive Staphylococcus Culture, Blood, 2nd Specimen [[id number]] Collected: 05/18/19 1548 Order Status: Completed Lab Status: Final result Updated: 1945 RESULT NO GROWTH 6 DAYS RESULT Testing performed at [facility];[address] [place] [address];[place] [address] Comment: Testing performed at [facility], [address] [place] [address], [place] [address] Culture, Blood [[id number]] Collected: 05/18/19 150 Order Status: Completed Lab Status: Final result Updated: 1945 Specimen: Blood from Antecubital, Right RESULT NO GROWTH 6 DAYS RESULT Testing performed at [facility];[address] [place] [address];[place] [address] Comment: Testing performed at [facility], [address] [facility], [place] [address] Culture, Blood [[id number]] Collected: 05/18/19 1447 Order Status: Canceled Lab [...] and htn Prior to admission dialysis schedule: [facility] Vancomycin Dosing in HD patients: Loading [...] ESR, Cxs, case with his previous ID Sql Bi Developer, Dr. Nick Miller MD . He recommends [...] Bx's here. Therefore, shai kearney confer with [facility], outpt. She was agreeable to staying one more nite for HD and clarif y AB regimen. Vanc. /Cefepime were given, IV, during discussion, after reviewing MRI report but before the phone conversation with Dr. Jung. BP control is better. Her Mental status is very clear. Also had HD x 5 hrs, 2K+, 35 HCO3 a nd tolerated well. [facility] Joo Rodriguez, Green Material Value Added Assessor - 05/24/2019 3:46 PM PDT VANCOMYCIN PER PHARMACY PROTOCOL: AMS/Drug Name - Vancomycin Patient: Ara Campos [id number] Admit: 05/20/2019 20:16 RELEVANT ALLERGIES: Amoxicillin 74 yrs old female patient admitted on 05/20/2019 for shortness of breath. Patient is receiv ing vancomycin starting on 05/24/2019 for osteomyelitis. Patient has a past medical histor y of Anemia, Arthritis, Back pain, Breast cancer ([facility]), Cancer ([facility]), Diabetes ([facility]), Heart disease, Hemodialysis patient ([facility]), History of blood clots, Hypercholesteremia, Hypertensio n, Hypothyroidism, Renal failure, Seasonal allergies, and Stroke (cerebrum) ([facility]). . Risk fa ctors for MDR organisms [...] Culture, Body Fluid, Sterile, Smear, with Anaerobes [[id number]] Collected: 05/22/19 1508 Order Status: Sent Lab Status: In process Updated: 05/22/19 1515 Specimen: Body Fluid from Pleural Fluid, Left Narrative: The following orders were created for panel order Culture, Body Fluid, Sterile, Smear, wit h Anaerobes. Procedure Abnormality Status --------- ------ Culture, Body Fluid, Aerobe[[id number]] Preliminary result Culture, Body Fluid, Bre...[[id number]] In process Please view results for these tests on the individual orders. Culture, Fungus, Smear [[id number]] Collected: 05/22/19 1509 Order Status: Sent Lab Status: In process Updated: 05/22/19 1510 Specimen: Body Fluid from Pleural Fluid, Left Culture, Body Fluid, Aerobe [[id number]] Collected: 05/22/19 1509 Order Status: Completed Lab Status: Preliminary result Updated: 05/24/19 1038 Specimen: Body Fluid from Pleural Fluid, Left Culture No growth to date Gram Stain Result 4+ White Blood Cells No organisms seen Culture, Body Fluid, Anaerobe [[id number]] Collected: 05/22/19 1509 Order Status: Resulted Lab Status: In process Updated: 05/22/19 151 Specimen: Body Fluid from Pleural Fluid, Left Culture, MRSA [[id number]] Collected: 05/20/192021 Order Status: Completed Lab Status: Final result Updated: 05/22/19 0753 Specimen: Tissue from Nares Culture Negative for MRSA by chromogenic agar method. 2+ Coagulase positive Staphylococcus Culture, Blood, 2nd Specimen [[id number]] Collected: 05/18/19 1548 Order Status: Completed Lab Status: Final result Updated: 05/24/19 0546 RESULT NO GROWTH 6 DAYS RESULT Testing performed at [facility];[address] [place] [address] Comment: Testing performed at [facility], [address] [place] [address] Culture, Blood [[id number]] Collected: 05/18/19 1508 Order Status: Completed Lab Status: Final result Updated: 05/24/19 0546 Specimen: Blood from Antecubital, Right RESULT NO GROWTH 6 DAYS RESULT Testing performed at [facility];[address] [place] [address] Comment: Testing performed at [facility], [address] [place] [address] Culture, Blood [[id number]] Collected: 05/18/19 1447 Order Status: Canceled Lab [...] BP elevated Prior to admission dialysis schedule: [facility] Vancomycin Dosing in HD patients: Loading [...] Monitoring Protocol Electronically signed by: Joo Bo, Green Material Value Added Assessor 05/24/2019 15:46Electroni terri signed by Joo Bo, Green Material Value Added Assessor at 05/24/2019 4:49 PM Kwame Guerin MD - 05/24/2019 11:04 AM PDTFormatting of this note might be different from the origin [facility] [place] [facility] PROGRESS NOTE Patient: Ara Campos : 1945: Age: 74 y.o. MedRec: [id number] Admission date: 05/20/2019 Hospital day # : [...] as patient received 1mg Ativan at OSH PROJECT CONTROL ANALYST. At baseline currently. #Recent osteomyelitis Patient admitted 03/24- with T11-12 osteomyelitis and completed 6 weeks vanc/cefepime. Rep eat MRI again redemonstrated possible osteomyelitis - vanc and cefepime have been resumed, Deepa Muñoz is discussing case with ID. #Diabetes Blood sugars at goal. CCM. Patient is again very upset [facility] and is eating little to no [...] 2,000 Units 2,000 Units Oral Daily Olegario maradiaga MD 2,000 Units at 05/24/19 0904 cloNIDine [...] Culture, Body Fluid, Sterile, Smear, with Anaerobes [[id number]] Collected: 05/22/19 150 Order Status: Sent Lab Status: In process Updated: 05/22/19 151 Specimen: Body Fluid from Pleural Fluid, Left Narrative: The following orders were created for panel order Culture, Body Fluid, Sterile, Smear, wit h Anaerobes. Procedure Abnormality Status --------- ------ Culture, Body Fluid, Aerobe[[id number]] Preliminary result Culture, Body Fluid, Bre...[[id number]] In process Please view results for these tests on the individual orders. Culture, Fungus, Smear [[id number]] Collected: 05/22/191508 Order Status: Sent Lab Status: In process Updated: 05/22/19 151 Specimen: Body Fluid from Pleural Fluid, Left Culture, Body Fluid, Aerobe [[id number]] Collected: 05/22/19 150 Order Status: Completed Lab Status: Preliminary result Updated: 05/24/19 1038 Specimen: Body Fluid from Pleural Fluid, Left Culture No growth to date Gram Stain Result 4+ White Blood Cells No organisms seen Culture, Body Fluid, Anaerobe [[id number]] Collected: 05/22/191508 Order Status: Resulted Lab Status: [...] rate 6L/min Nora Christina MD 05/24/2019 11:04 [facility] Michelle Solorzano Phar mD - [...] ? Pharmacy list names: [facility] ([facility]) ? [employer] insurance reported information Vaccines up [...] Tobacco & Alcohol use/frequency: ? Recreational substances: [id number] asked how much or how often patient sta rich "I smoke as much as I want" Other: No changes to PROJECT CONTROL ANALYST list, due to the fact that patient was very non compliant. She either di d not want to take her medications, or she stated that she did not know if she was taking th em. She did not want to do the interview. Best possible PROJECT CONTROL ANALYST medication list after pharmacy review: Medication review performed and electronically signed by Kerry Jordan, Marina Dry Dock Manager 05/23/2019 16:20 Reviewed by Michelle Ochoa PharmD 05/23/2019 18:26 Nora Guerin MD - 05/23/2019 3:20 PM PDT [facility] [place] HOSPITALIST PROGRESS NOTE Patient: Ara Campos : 1945: Age: 74 y.o. MedRec: [id number] Admission date: 05/20/2019 Hospital day # : [...] as patient received 1mg Ativan at OSH PROJECT CONTROL ANALYST. At baseline currently. #Recent osteomyelitis Patient admitted [...] tablet 2,000 Units 2,000 Units Oral Daily Oleagrio maradiaga MD 2,000 Units at 05/23/19 0835 cloNIDine [...] Culture, Body Fluid, Sterile, Smear, with Anaerobes [[id number]] Collected: 05/22/19 150 Order Status: Sent Lab Status: In process Updated: 05/22/191512 Specimen: Body Fluid from Pleural Fluid, Left Narrative: The following orders were created for panel order Culture, Body Fluid, Sterile, Smear, wit h Anaerobes. Procedure Abnormality Status --------- ------ Culture, Body Fluid, Aerobe[[id number]] Preliminary result Culture, Body Fluid, Bre...[[id number]] In process Please view results for these tests on the individual orders. Culture, Fungus, Smear [[id number]] Collected: 05/22/19 1509 Order Status: Sent Lab Status: In process Updated: 05/22/19 1510 Specimen: Body Fluid from Pleural Fluid, Left Culture, Body Fluid, Aerobe [[id number]] Collected: 05/22/19 150 Order Status: Completed Lab Status: Preliminary result Updated: 05/23/19 09 Specimen: Body Fluid from Pleural Fluid, Left Culture No growth to date Gram Stain Result 4+ White Blood Cells No organisms seen Culture, Body Fluid, Anaerobe [[id number]] Collected: 05/22/19 150 Order Status: Resulted Lab Status: In process Updated: 05/22/19 151 Specimen: Body Fluid from Pleural Fluid, Left Culture, MRSA [[id number]] Collected: 05/20/192021 Order Status: Completed Lab Status: [...] rate 0.5L/min Nora Christina MD 05/23/2019 15:20 [facility] documented in this enco unter [...] [address] | [place] | [phone] | | [facility] | | [address] | | | - LABORATORY | | | | + + + + + POC Glucose (05/25/2019 7:38 AM PDT) + +-------+ + + + | Component | Value | Ref Range | Performed | Pathologist | | | | | At | Signature | + +-------+ + + + | Glucose, | 102 | 70 - 109 mg/dL | [facility] [...] [address] | [place] | [phone] | | [facility] | | [address] | | | - LABORATORY | | [...] 4.14 (H) | 0.55 - 1.02 | [facility] | | | | | mg/dL | [facility] | | | | | | MEDICAL | | | | | | CENTER - | | | | | | LABORATORY | | + + + + + + | eGFR if not | 11 (L)Comment: | >=60 | [facility] | | | | GLOMERULAR FILTRATION | mL/min/1.73m2 | [facility] | | | [place] | RATE,ESTIMATED | | MEDICAL | | | | mL/min/1.11s6Hpgy than | | CENTER - | | [...] [address] | [place] | [phone] | | [facility] | | [address] | | | - LABORATORY | | [...] | [address] [facility] | [address] | [place] | [phone] | | [facility] | | [address] | | | - [...] [address] | [place] | [phone] | | [facility] | | [address] | | | - LABORATORY | | [...] + | [facility] | [address] | [place] | [phone] | | [facility] | | [address] | | | - LABORATORY | | [...] [address] | [place] | [phone] | | [facility] | | [address] | | | - LABORATORY | | [...] mL/min/1.73m2 | [facility] | | | [place] | RATE,ESTIMATED | | MEDICAL | | | | mL/min/1.09l6Rqhh than | | CENTER - | | [...] (L) | 3.2 - 4.8 g/dL | [facility] | | | | | [...] | LABORATORY | | | | [employer] | | | | + + [...] [address] | [place] | [phone] | | [facility] | | [address] | | | - LABORATORY | | [...] [address] | [place] | [phone] | | [facility] | | [address] | | | - LABORATORY | | [...] | [facility] [address] [facility] | [address] | [place] | [phone] | | [facility] | | [address] | | | - LABORATORY | | [...] | | POC | | | [facility] | | | | | | [...] ST. | [address] | [place], [place] | [phone] | | [facility] | | [address] | | | - LABORATORY | | [...] [address] | [place] | [phone] | | [facility] | | [address] | | | - LABORATORY | | [...] ST. | [address] | [place], [place] | [phone] | | [facility] | | [address] | | | - LABORATORY | | [...] mL/min/1.73m2 | [facility] | | | [place] | RATE,ESTIMATED | | MEDICAL | | | | mL/min/1.82g8Whnw than | | CENTER - | | [...] [address] | [place] | [phone] | | [facility] | | [address] | | | - LABORATORY | | [...] + | [facility] | [address] | [place] | [phone] | | [facility] | | [address] | | | - LABORATORY | | [...] [address] | [place] | [phone] | | [facility] | | [address] | | | - LABORATORY | | | | + + + + + POC Glucose (05/22/2019 5:12 PM PDT) + +-------+ + + + | Component | Value | Ref Range | Performed | Pathologist | | | | | At | Signature | + +-------+ + + + | Glucose, | 72 | 70 - 109 mg/dL | [facility] [...] [address] | [place] | [phone] | | [facility] | | [address] | | | - LABORATORY | | [...] + | [facility] [facility] | [address] | [place] | [phone] | | [facility] | | [address] | | | - LABORATORY | | [...] Performed at: 02 - [facility] [address], | REFERENCE LAB | | [place] [id number] Dietetics Professor: Violette Mcconnell MD, Phone: | [facility] | | [phone] | | + + + + + + + + | Performing | Address | City/State/Zipcode | Phone Number | | Organization | | | | + + + + + | REFERENCE LAB | [address] | [place] [address] | [phone] | | [facility] | Drive [...] + | Performed at: 01 - [facility] [place] [address], | REFERENCE LAB | | [place], [place] [id number] Dietetics Professor: Ernie Lee MD, Phone: | [facility] | | [phone] | | + + + + + + + + | Performing | Address | City/State/Zipcode | Phone Number | | Organization | | | | + + + + + | REFERENCE LAB | [address] | [place] [address] | [phone] | | [facility] | Drive [...] Culture | No anaerobes isolated. | | [facility] | | | | [...] + | [facility] | [address] | [place] | [phone] | | [facility] | | [address] | | | - LABORATORY | | | | + + + + + Culture, Body Fluid, Aerobe (05/22/2019 3:09 PM PDT) + + + + + + | Component | Value | Ref Range | Performed | Pathologist | | | | | At | Signature | + + + + + + | Culture | No Growth | | [facility] | | | [...] [address] | [place] | [phone] | | [facility] | | [address] | | | - LABORATORY | | [...] + + | Performed at: 01 - [place] [address], | REFERENCE LAB | | [place], [place] [id number] Dietetics Professor: Ernie Lee MD, Phone: | [facility] | | [phone] Performed at: 02 - [address] | | | [place], [place] [id number] Dietetics Professor: Violette Mcconnell MD, | | | Phone: [phone] | | + + + + + + + + | Performing | Address | City/State/Zipcode | Phone Number | | Organization | | | | + + + + + | REFERENCE LAB | [address] | [place] [address] | [phone] | | [facility] | Drive [...] Protein, BF | 3.1 | g/dL | [facility] | | | | | [...] [address] | [place] | [phone] | | [facility] | | [address] | | | - LABORATORY | | [...] Color | Yellow (A) | (none) | [facility] | | | | [...] [address] | [place] | [phone] | | [facility] | | [address] | | | - LABORATORY | | | | + + + + + POC Glucose (05/22/2019 11:23 AM PDT) + +-------+ + + + | Component | Value | Ref Range | Performed | Pathologist | | | | | At | Signature | + +-------+ + + + | Glucose, | 94 | 70 - 109 mg/dL | [facility] [...] [address] | [place] | [phone] | | [facility] | | [address] | | | - LABORATORY | | [...] | | POC | | | [facility] | | | | | [...] [address] | [place] | [phone] | | [facility] | | [address] | | | - LABORATORY | | [...] 4.82 (H) | 0.55 - 1.02 | [facility] | | | | | mg/dL | [facility] | | | | | | MEDICAL | | | | | | CENTER - | | | | | | LABORATORY | | + + + + + + | eGFR if not | 9 (L)Comment: GLOMERULAR | >=60 | [facility] | | | | FILTRATION | mL/min/1.73m2 | [facility] | | | [place] | RATE,ESTIMATED | | MEDICAL | | | | mL/min/1.40n5Cunz than | | CENTER - | | [...] 3.3 | 3.2 - 4.8 g/dL | [facility] [...] [address] | [place] | [phone] | | [facility] | | [address] | | | - LABORATORY | | [...] [facility] | | | | | | . NERISSA | | [...] + | [facility] | [address] | [place] | [phone] | | [facility] | | [address] | | | - LABORATORY | | [...] [address] | [place] | [phone] | | [facility] | | [address] | | | - LABORATORY | | | | + + + + + POC Glucose (05/21/2019 4:57 PM PDT) + +-------+ + + + | Component | Value | Ref Range | Performed | Pathologist | | | | | At | Signature | + +-------+ + + + | Glucose, | 84 | 70 - 109 mg/dL | [facility] [...] + + | Performing | Address | City/State/[facility] Cent[facility] | Phone Number | | Organization | | | | + + + + + | [facility] | [address] | [place] | [phone] | | [facility] | | [address] | | | - LABORATORY | | [...] | | POC | | | [facility] | | [...] + | [facility] | [address] | [place] | [phone] | | [facility] | | [address] | | | - LABORATORY | | [...] [address] | [place] | [phone] | | [facility] | | [address] | | | - LABORATORY | | | | + + + + + Sedimentation Rate (05/21/2019 4:15 AM PDT) + +--------+ + + + | Component | Value | Ref Range | Performed | Pathologist | | | | | At | Signature | + +--------+ + + + | ESR | 48 (H) | <30 mm/hr | [facility] [...] [address] | [place] | [phone] | | [facility] | | [address] | | | - LABORATORY | | | | + + + + + C-Reactive Protein (05/21/2019 4:15 AM PDT) + + + + + + | Component | Value | Ref Range | Performed | Pathologist | | | | | At | Signature | + + + + + + | CRP | 51.80 (H) | <10.00 mg/L | [facility] | | | | [...] [address] | [place] | [phone] | | [facility] | | [address] | | | - LABORATORY | | [...] 7.26 (H) | 0.55 - 1.02 | [facility] | | | | | mg/dL | [...] mL/min/1.73m2 | [facility] | | | [place] | RATE,ESTIMATED | | MEDICAL | | | | mL/min/1.28s0Mngs than | | CENTER - | | [...] + | BUN/Creatin | 6.6 | | [facility] | | | ine Ratio | | | [facility] | | | | | | [...] [address] | [place] | [phone] | | [facility] | | [address] | | | - LABORATORY | | [...] | | | in | | | [facility] | | | | | | MEDICAL | | | | | | CENTER - | | | | | | LABORATORY | | + + + + + + | Comment | Comment: < 0.50 | | [facility] | | | | ng/mL:Procalcitonin | | [facility] | | | | levels below 0.50 [...] [address] | [place] | [phone] | | [facility] | | [address] | | | - LABORATORY | | [...] | | Time | | seconds | NERIS[facility] | | | | | [...] + | [facility] | [address] | [place] | [phone] | | [facility] | | [address] | | | - LABORATORY | | [...] [address] | [place] | [phone] | | [facility] | | [address] | | | - LABORATORY | | [...] + | [facility] | [address] | [place], [place] | [phone] | | [facility] | | [address] | | | - LABORATORY | | [...] | this study were reported by the [facility] Imaging radiologist on | | | May [...] PHYSICIAN: Gopi Muñoz MD PATIENT NAME: | [place] [facility] | | ARA CAMPOS GENDER: F : 1945 | [employer] | | SPECIMEN(S): A PLEURAL FLUID, LEFT [...] preparation was | | | performed by [employer] [id number] [facility] | | | [place] [address] and [facility] [address] | | | [place] [address]. Professional interpretation was performed | | | by [employer] - [facility] - [address] | | | [place] [address] (Perfumer: Alen Simpson, | | | .; CLIA#:[id number]).[id number] Diagnostician: Darcie López M.S., | | | CT([facility]), [facility] [employer] Tender Diagnostician: Alen Kearney | | | Calvin [...] [address] | [place] | [phone] | | [facility] | | [address] | | | - LABORATORY | | [...] RIGHT ATRIUM. Dictated and Signed by: Arun | | | MD Naveen Electronically signed: 05/21/2019 5:53 AM | | + + + + + | Procedure Note | + + | Julian, Anjum Results In - 05/21/2019 5:57 AM PDT [...] [address] | [place] | [phone] | | [facility] | | [address] | | | - LABORATORY | | [...] | [facility] [address] [facility] | [address] | [place] | [phone] | | [facility] | | [address] | | | - LABORATORY | | [...] | B-12 | <145 | | [facility] | | | | pg/mLINDETERMINATE: | | [...] [address] | [place] | [phone] | | [facility] | | [address] | | | - LABORATORY | | [...] | | | | uIU/mL | STMarianela NERISSA | | [...] + | [facility] | [address] | [place] | [phone] | | [facility] | | [address] | | | - LABORATORY | | [...] [place] | | | [facility] | | [address] | | | - BLOOD BANK | [...] | | | | | | [employer] | | | | | [...] [address] | [place] | [phone] | | [facility] | | [address] | | | - LABORATORY | | [...] | [facility] [facility] | [address] | [place] | [phone] | | [facility] | | [address] | | | - LABORATORY | | | | + + + + + Magnesium (05/20/2019 8:51 PM PDT) + +-------+ + + + | Component | Value | Ref Range | Performed | Pathologist | | | | | At | Signature | + +-------+ + + + | Magnesium | 2.2 | 1.6 - 2.6 mg/dL | [facility] | | | | [...] + | [facility] | [address] | [place] | [phone] | | [facility] | | [address] | | | - LABORATORY | | [...] [address] | [place] | [phone] | | [facility] | | [address] | | | - LABORATORY | | [...] | | Protein | | | STMarianela [facility]ULTANI | | [...] | [facility] [facility] | [address] | [place] | [phone] | | [facility] | | [address] | | | - LABORATORY | | [...] | 6 (L)Comment: GLOMERULAR | >=60 | [facility] | | | | FILTRATION | mL/min/1.73m2 | [facility] | | | [place]ESE | RATE,ESTIMATED | | MEDICAL | | | | mL/min/1.97t4Ejcf than | | CENTER - | | [...] + | [facility] | [address] | [place] | [phone] | | [facility] | | [address] | | | - LABORATORY | | [...] (L) | 60 - 750 mmHg | JIM[facility] | | | | | [...] [address] | [place] | [phone] | | [facility] | | [address] | | | - LABORATORY | | [...] [address] | [place] | [phone] | | [facility] | | [address] | | | - LABORATORY | | [...]
--- OUTSIDE RECORDS SUMMARY | ~2019-09-08 | XMS | Encounter Summary ---
Demographics + + + | Address | [address] | | | [place] [address] | + + + | Home Phone [...] Author | [facility] | | | and [place] | + + + | Organization | [facility] | | | and [place] | + + + | Address | Unknown | + + + | Phone | Unavailable | + + + Support + + + + + | Name | Relationship | Address | Phone | + + + + + | India Tilley | ECON | [address] | | | | | [place], [place] | | | | | [address] | | + + + + + | Yina La | ECON | Unknown | | + + + + + | Yina Peterson | ECON | Unknown | | + + + + + | Leatha Casillas | ECON | Unknown | | + + + + + Care Team Providers + +------+ + | Care Streetcar Repairer Name | Role | Phone | [...] + + | 01/06/ | Telephone | [facility] | Scott Koroma, | Insurance | | 2019 | | ORTHOPEDIC SURGERY | [address] | Authorization | | | | [address] [facility] | [place] | | | | | [place] | [address] | | | | | [phone] | | | | | | [phone] | | | +--------+ + + + [...]
--- OUTSIDE RECORDS SUMMARY | ~2019-09-08 | XMS | Encounter Summary ---
Demographics + + + | Address | [address] | | | [place] [address] | + + + | Home Phone [...] | Author | [facility] | | | and Kamaljitana | + + + | Organization | [facility] | | | and [place] | + + + | Address | Unknown | + + + | Phone | Unavailable | + + + Support + + + + + | Name | Relationship | Address | Phone | + + + + + | India Tilley | ECON | [address] | | | | | [place], [place] | | | | | [address] | | + + + + + | Yina La | ECON | Unknown | | + + + + + | Yina Peterson | ECON | Unknown | | + + + + + | Leatha Casillas | ECON | Unknown | | + + + + + Care Team Providers + +------+ + | Care Sports Nutritionist Name | Role | Phone | + [...] Hemodialysis | | | | [address] | [place] [address] | Catheter Placement | | | | [place], [place] | [phone] | | | | | [address] | | | | | | [phone] | | | +--------+---------+ + + + [...] might be differ ent from the original. [place], [place] HOSPITALIST DISCHARGE SUMMARY Pt. Name/Age/: Estefani Nicolas Andres 72 y.o. 1945 Date of Admission: 11/01/2017 Date of Discharge: 11/09/2017 Admitting Physician: Gopi Muñoz DO Primary Care Provider: rFancisca Womack PA-C Discharging Physician: Mayelin Vega MD [...] insulin glargine 100 units/mL injection (vial) aka: [facility] COURSE: Please refer to the H&P for full details and the most recent rounding rounding (progress) n ote. In short this is a 72-year-old woman, history of hypertension, diabetes mellitus type 2 on insulin, chronic kidney disease of stage V, CAD, who presented to [facility] after be ing found down in [...] evaluation. At time of arrival to send [facility], patient was feeling much better and was [...] n/a DISPOSITION AND DISCHARGE INSTRUCTIONS: Follow-up Information [facility] [place] On 11/10/2017. Why: 1:00pm Contact information: [address] [place] [id number] Follow up In 3 days. Francisca Womack PA-C In 3 days. Specialty: Internal Medicine Contact information: [address] [place] [address] Hemodialysis In 1 day. Contact information: Appointment at 1:30 PM Condition: Patient being discharged with condition improved and stable Diet: renal, carbohydrate controlled Greater than 30 minutes were spent on discharge and coordination of post-hospital care. Electronically signed by: Mayelin Vega MD, 11/09/2017 11:06 [facility] Portions of this chart may have been created with [email or web address] voice recognition software. Occasi onal wrong-word or sound-alike substitutions may have occurred due to the inherent mckeon itations of voice recognition software. Please read the chart carefully and recognize, using context, where these substitutions have occurred documented in this encounter Discharge Instructions AttachmentsThe following attachments cannot be sent through Care Everywhere.Balancing Calci um and Phosphorus, Kidney Disease ([place])Hemodialysis ([place])documented in this encounte r Medications at Time [...] Muñoz, DO - 11/09/2017 6:18 PM PST [facility] [address] [place] [address] PROGRESS NOTE Pt. Name/Age/: Estefani Tilley 72 y.o. 1945 Med. Record Number: [id number] Date of admission: 11/01/2017 NEPHROLOGY HPI - Pt was seen at 1000 on HD with NxStage with QB 300 tolerating very well. I had a jya gthy discussion with her about her quality [...] 3. Complete 10 days total of AB's. [facility] Nora Headley MD - 11/09/2017 4:24 [...] and she agreed. Nikki was raised in [place] and in [place], [place]. She has two brothers and two sisters, and h ad 4 children of her own. Her oldest child, daughter, two months ago. Nikki is gri eving her loss and teared up while talking about her. Her other children live in [facility] and one son has been in longterm for 23 years. She hasn't seen him since he was arr ested and is hopeful she will get to see him next year, as he is schedule to be released at that time. 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 She has at least 4 ye ars post high school education and studied journalism. In the years prior to halfway, she worked at [employer]. Nikki's mother had chronic kidney disease and [...] and picking up and going to the [facility] [place]. She must plan it out, and that feels antithetical to her nature. Ginger escamilla was present and attentive while she discussed her grief around losing her family member s and her lifestyle, offered supportive pet adoption counselor. Chayo Ramirez RN - 11/09/2017 10:00 AM Cam RN arrived at [facility] room around 0800 to begin dialysis. Afte [...] provider, Palliative Care KAYLA, met briefly with "Inkki" Jose Raul rebecca this morning to introduce [...] note might be different from the [facility] [place] [facility] PROGRESS NOTE Patient: Estefani Tilley : 1945: Age: 72 y.o. MedRec: [id number] Admission date: 11/01/2017 Hospital day # : [...] 100 mg 100 mg Oral BID Olegario Pegn MD 100 mg at 11/07/172051 [NOV Hold] [...] mg/m L 0.25 mg [facility] Medical Administrative Assistant Nora Leo MD [NOV Hold] labetalol (NORMODYNE) [...] HSQ FEN: renal Mayelin Vega 11/08/2017 11:50 [facility] Nora Headley MD - 11/08/2017 10:06 AM [...] might be different f rom the original. [facility] [place] HOSPITALIST PROGRESS NOTE Patient: Estefani Tilley : 1945: Age: 72 y.o. MedRec: [id number] Admission date: 11/01/2017 Hospital day # : [...] Procedure Component Value Units Date/Time Culture, Blood [[id number]] (Normal) Collected: 11/04/172121 Order Status: Completed Lab Status: Preliminary result Updated: 11/05/17 09 Specimen: Blood from Line Culture No growth: Monitored continually by instrument for 5 days Culture, Blood [[id number]] (Normal) Collected: 11/04/172102 Order Status: Completed Lab [...] HSQ FEN: renal Mayelin Vega 11/07/2017 12:57 [facility] Cordell Palmer MD - 11/07/2017 9:43 AM PSTFormatting of this note might be different from the maynor rollins [facility] NEPHROLOGY progress note Patient: Estefani Tilley : [...] Darlin Moseley MD Electronically signed: 11/07/2017 9:43 [facility] NEPHROLOGY Olegario Keen M D - 11/06/2017 2:15 PM PST [facility] [place] HOSPITALIST PROGRESS NOTE Patient: Estefani Tilley : 1945: Age: 72 y.o. MedRec: [id number] Admission date: 11/01/2017 Hospital day # : [...] Procedure Component Value Units Date/Time Culture, Blood [[id number]] (Normal) Collected: 11/04/172121 Order Status: Completed Lab Status: Preliminary result Updated: 11/05/17930 Specimen: Blood from Line Culture No growth: Monitored continually by instrument for 5 days Culture, Blood [[id number]] (Normal) Collected: 11/04/172102 Order Status: Completed Lab Status: Preliminary result Updated: 11/05/17 09 Specimen: Blood from Line Culture No growth: Monitored continually by instrument for 5 days Culture, Blood [[id number]] (Normal) Collected: 11/03/17 1506 Order Status: Completed [...] to determ ine if permacath needed for fdc dialysis CAD no signs of ACS, EKG [...] Oral BID PRN Olegario Peng 11/06/2017 14:15 [facility] Darlin Palmer M D - 11/06/2017 9:10 AM PST [facility] NEPHROLOGY progress note Patient: Estefani Tilley : [...] Continuous Infusions: Heparin Infusion 200 Units/hr (11/06/17 9707) PRN Meds:acetaminophen, albumin, albuterol, bisacodyl, Hypoglycemia Management [...] Darlin Moseley MD Electronically signed: 11/06/2017 9:11 [facility] NEPHROLOGY Olegario Keen M D - 11/05/2017 2:08 PM PST [facility] [place] HOSPITALIST PROGRESS NOTE Patient: Estefani Tilley : 1945: Age: 72 y.o. MedRec: [id number] Admission date: 11/01/2017 Hospital day # : [...] Procedure Component Value Units Date/Time Culture, Blood [[id number]] (Normal) Collected: 11/04/172 Order Status: Completed Lab Status: Preliminary result Updated: 11/05/17 0931 Specimen: Blood from Line Culture No growth: Monitored continually by instrument for 5 days Culture, Blood [[id number]] (Normal) Collected: 11/04/17 2103 Order Status: Completed Lab Status: Preliminary result Updated: 11/05/17 0911 Specimen: Blood from Line Culture No growth: Monitored continually by instrument for 5 days Culture, Blood [[id number]] (Normal) Collected: 11/03/17 1506 Order Status: Completed Lab Status: Preliminary result Updated: 11/04/17 0311 Specimen: Blood from Peripheral Blood Culture No growth: Monitored continually by instrument for 5 days Culture, Blood [[id number]] (Abnormal) Collected: 11/03/17 0812 Order Status: Completed Lab Status: Preliminary result Updated: 11/05/17 0751 Specimen: Blood from Arm, Left Culture Positive Blood Culture (AA) Staphylococcus coagulase negative Comment: Identification and susceptibility to follow. Probable contaminant Gram Stain Result Gram positive cocci in clusters Comment: 2 of 4 bottles positive Culture, Respiratory, Lower, Smear [[id number]] Collected: 11/03/17 0727 Order Status: Completed Lab [...] Oral BID PRN Olegario Peng 11/05/2017 14:08 [facility] Darlin Palmer M D - 11/05/2017 1:53 PM PST [facility] NEPHROLOGY progress note Patient: Estefani Tilley : [...] Darlin Moseley MD Electronically signed: 11/05/2017 13:53 [facility] NEPHROLOGY tGopi rick , DO - 11/04/2017 6:53 PM PST [facility] [address] [place], [place] [id number] PROGRESS NOTE Pt. Name/Age/: Estefani Tilley 72 y.o. 1945 Med. Record Number: [id number] Date of admission: 11/01/2017 NEPHROLOGY HPI - [...] to high Inpt case load here at [facility]. 2. probable pyelonephritis?--Day #3 Ceftriaxone, Day #2 [...] for coverage of both organisms, Q 48H. [facility] Queenie Hall RN - 11/04/2017 10:23 AM PSTPatient transferred from ICU into room 307. Oriented to room an d call light. Bed alarm set. Call light in place. Remains on 2L via nasal canula. Makes need s known. Amanda Keen MD - 11/04/2017 7:21 AM PSTFormatting of this note might be different from the origin al. [facility] [place] HOSPITALIST PROGRESS NOTE Patient: Estefani Tilley : 1945: Age: 72 y.o. MedRec: [id number] Admission date: 11/01/2017 Hospital day # : [...] Procedure Component Value Units Date/Time Culture, Blood [[id number]] (Normal) Collected: 11/03/17 1506 Order Status: Completed Lab Status: Preliminary result Updated: 11/04/17 0311 Specimen: Blood from Peripheral Blood Culture No growth: Monitored continually by instrument for 5 days Culture, Blood [[id number]] (Normal) Collected: 11/03/17 0812 Order Status: Completed Lab Status: Preliminary result Updated: 11/03/17 2041 Specimen: Blood from Arm, Left Culture No growth: Monitored continually by instrument for 5 days Culture, Respiratory, Lower, Smear [[id number]] Collected: 11/03/17 0727 Order Status: Completed Lab Status: Preliminary result Updated: 11/03/17 1028 Specimen: Respiratory from Sputum, expectorated Gram Stain Result 3+ White Blood Cells 2+ Epithelial cells 2+ Gram positive cocci 2+ Gram positive bacilli 1+ Hyphael elements Influenza A and B RNA, NAAT [[id number]] (Normal) Collected: 11/02/17 1050 Order Status: Completed Lab Status: Final result Updated: 11/02/17 1125 Specimen: Respiratory from Nares Influenza A PCR Negative Influenza B PCR Negative Culture, Urine [[id number]] Collected: 11/02/17 0740 Order Status: Completed Lab Status: Preliminary result Updated: 11/03/17 1013 Specimen: Urine Culture >100,000 CFU/ml Lactose Fermenting Gram Negative Bacilli Comment: Identification and susceptibility to follow. Culture, Blood [[id number]] (Normal) Collected: 11/02/17 0024 Order Status: Completed Lab Status: Preliminary result Updated: 11/02/17 1241 Specimen: Blood from Peripheral Blood Culture No growth: Monitored continually by instrument for 5 days Culture, Blood [[id number]] (Abnormal) Collected: 11/02/17 0019 Order Status: Completed [...] 15:14 by Edison Short. Narrative: Culture, MRSA [[id number]] Collected: 11/01/172145 Order Status: Completed Lab Status: [...] in chains -Repeat UA (+), urine culture >934319 GNB lactose fermenting -Continue ceftriaxone started 11/02, [...] Q30 Min PRN Olegario Peng 11/04/2017 7:21 [facility] Nick Aguillon, RN - 0 11/04/2017 1:06 AM PSTDialysis treatment started and Arterial pressures running in the -400s , trouble shooting ineffective, arterial and venous lines switched, pressures now -50s. Shama sarabia is running appropriately at this moment, will continue monitoring. Nick Guallpa Gopi Mckenna DO - 11/03/2017 11:20 AM PST [facility] [address] [place] [address] PROGRESS NOTE Pt. Name/Age/: Estefani Tilley 72 y.o. 1945 Med. Record Number: [id number] Date of admission: 11/01/2017 NEPHROLOGY HPI - [...] anemia. 4. Encourage ambulation to minimize atelectasis. [facility] Olegario Keen MD - 11/03/2017 7:07 AM PST [facility] [place] HOSPITALIST PROGRESS NOTE Patient: Estefani Tilley : 1945: Age: 72 y.o. MedRec: [id number] Admission date: 11/01/2017 Hospital day # : [...] mg 4 mg Intravenous Q6H PRN Rupal Laguan MD 4 mg at 11/02/17 193 pantoprazole [...] PH UA 6.0 5.0 - 8.0 Specific [place] 1.010 1.001 - 1.030 PROTEIN UA 100 [...] Date/Time Influenza A and B RNA, NAAT [[id number]] (Normal) Collected: 11/02/17 1050 Order Status: Completed Lab Status: Final result Updated: 11/02/17 1125 Specimen: Respiratory from Nares Influenza A PCR Negative Influenza B PCR Negative Culture, Urine [[id number]] Collected: 11/02/17 0740 Order Status: Sent Lab Status: In process Updated: 11/02/17 0758 Specimen: Urine Culture, Blood [[id number]] (Normal) Collected: 11/02/17 0024 Order Status: Completed Lab Status: Preliminary result Updated: 11/02/17 1241 Specimen: Blood from Peripheral Blood Culture No growth: Monitored continually by instrument for 5 days Culture, Blood [[id number]] (Abnormal) Collected: 11/02/17 0019 Order Status: Completed Lab Status: Preliminary result Updated: 11/02/17 1515 Specimen: Blood from Peripheral Blood Culture Positive Blood Culture (AA) Gram Stain Result Gram positive cocci in chains Comment: One of four Blood Culture bottles POSITIVE. Critical Result called to and read b ack by Kristen Irving on 11/02/2017 at 15:14 by Edison Short. Narrative: Culture, MRSA [[id number]] Collected: 11/01/17 2146 Order Status: Sent Lab [...] Oral BID PRN Olegario Peng 11/03/2017 7:08 [facility] oltangela, Ta Restrepo, [facility] - 11/02/2017 3:43 PM PST PHARMACY [...] strength, and directions X Pharmacy list names: [facility] BILLING CUSTOMER SERVICE REPRESENTATIVE (Prescription Monitoring Program) X [facility] insurance reported information X Care Everywhere [...] Prior to Admission Sig: Patient taking differently CHILD & ADOLESCENT PSYCHIATRIST as: Atorvastatin 20mg 1 tab by mouth nightly 1 tab by mouth every morning Calcium- vitamin d 600-400mg 1 tab by mouth twice daily 1 tab by mouth every morning Duloxetine 30mg DR 1 capsule by mouth daily Patient has not started this medication CHILD & ADOLESCENT PSYCHIATRIST, cortés s not filled at pharmacy [id number] 200mg by mouth twice daily 200mg by mouth every morning labetalol 200mg 1 tab by mouth twice daily Patient has not started this medication CHILD & ADOLESCENT PSYCHIATRIST, has not filled at pharmacy Best possible CHILD & ADOLESCENT PSYCHIATRIST medication list after pharmacy review: Prior to [...] performed and electronically signed by Puja Whitman, Principal Architect 2017 15:31 Electronically signed by: Ta Ronquillo [facility] 11/02/2017 15:40 Olegario Keen MD - 11/02/2017 7:21 AM PST [facility] [place] HOSPITALIST PROGRESS NOTE Patient: Estefani Tilley : 1945: Age: 72 y.o. MedRec: [id number] Admission date: 11/01/2017 Hospital day # : [...] Nightly Rupal Laguna MD 20 mg at 1811 bisacodyl (DULCOLAX) suppository 10 mg 10 mg [...] Procedure Component Value Units Date/Time Culture, Blood [[id number]] Collected: 11/02/1723 Order Status: Sent Lab Status: In process Updated: 11/02/1732 Specimen: Blood from Peripheral Blood Culture, Blood [[id number]] Collected: 11/02/1718 Order Status: Sent Lab Status: In process Updated: 11/02/1732 Specimen: Blood from Peripheral Blood Culture, MRSA [[id number]] Collected: 11/01/172145 Order Status: Sent Lab Status: [...] 0.9% Intravenous Continuous Olegario Peng 11/02/2017 7:38 [facility] documented in this e ncounter Plan of [...] | | PERMACATH | | PST | ([facility]) | | + +--------+ + + + [...] [address] | [place] | [phone] | | [facility] | | [address] | | | - LABORATORY | | [...] [address] | [place] | [phone] | | [facility] | | [address] | | | - LABORATORY | | [...] [address] | [place] | [phone] | | [facility] | | [address] | | | - LABORATORY | | [...] 2.99 (H) | 0.60 - 1.30 | [facility] | | | | | mg/dL | [facility] | | | | | | MEDICAL | | | | | | CENTER - | | | | | | LABORATORY | | + + + + + + | eGFR if not | 15 (L)Comment: | >=60 | [facility] | | | | GLOMERULAR FILTRATION | mL/min/1.73m2 | [facility] | | | [place] | RATE,ESTIMATED | | MEDICAL | | | | mL/min/1.58z4Mrxz than | | CENTER - | | [...] [address] | [place] | [phone] | | [facility] | | [address] | | | - LABORATORY | | [...] + | [facility] | [address] | [place] | [phone] | | [facility] | | [address] | | | - LABORATORY | | [...] [address] | [place] | [phone] | | [facility] | | [address] | | | - LABORATORY | | [...] [address] | [place] | [phone] | | [facility] | | [address] | | | - LABORATORY | | [...] + | [facility] | [address] | [place] | [phone] | | [facility] | | [address] | | | - LABORATORY | | [...] [address] | [place] | [phone] | | [facility] | | [address] | | | - LABORATORY | | [...] + | [facility] | [address] | [place] | [phone] | | [facility] | | [address] | | | - LABORATORY | | [...] mL/min/1.73m2 | [facility] | | | [place] | RATE,ESTIMATED | | MEDICAL | | | | mL/min/1.76x6Drsp than | | CENTER - | | [...] ST. | [address] | [place] | [phone] | | [facility] | | [address] | | | - LABORATORY | | [...] | Lymphocytes | | K/uL | [facility] | | | | [...] [address] | [place] | [phone] | | [facility] | | [address] | | | - LABORATORY | | [...] | [facility] | [address] | [place] | [phone] | | [facility] | | [address] | | | - LABORATORY | | [...] [address] | [place] | [phone] | | [facility] | | [address] | | | - LABORATORY | | [...] | + + + + + | [facility] | [address] | [place] | [phone] | | [facility] | | [address] | | | - LABORATORY | | [...] + | [facility] | [address] | [place] | [phone] | | [facility] | | [address] | | | - LABORATORY | | [...] | | | Morphology | | | STMairanela NERISSA | | | | | | [...] + | [facility] | [address] | [place] | [phone] | | [facility] | | [address] | | | - LABORATORY | | [...] ST. | [address] | [place] | [phone] | | [facility] | | [address] | | | - LABORATORY | | [...] | Basophils | | K/uL | [facility] | | | | | [...] [address] | [place] | [phone] | | [facility] | | [address] | | | - LABORATORY | | [...] (H) | 7 - 18 mg/dL | [facility] | | | | | | [facility] | | | | | | MEDICAL | | | | | | CENTER - | | | | | | LABORATORY | | + + + + + + | Creatinine | 2.24 (H) | 0.60 - 1.30 | [facility] | | | | | mg/dL | [facility] | | | | | | MEDICAL | | | | | | CENTER - | | | | | | LABORATORY | | + + + + + + | eGFR if not | 22 (L)Comment: | >=60 | [facility] | | | | GLOMERULAR FILTRATION | mL/min/1.73m2 | [facility] | | | [place] | RATE,ESTIMATED | | MEDICAL | | | | mL/min/1.08c6Rzgy than | | CENTER - | | [...] + | [facility] | [address] | [place] | [phone] | | [facility] | | [address] | | | - LABORATORY | | [...] [address] | [place] | [phone] | | [facility] | | [address] | | | - LABORATORY | | [...] [address] | [place] | [phone] | | [facility] | | [address] | | | - LABORATORY | | [...] + | [facility] | [address] | [place] | [phone] | | [facility] | | [address] | | | - LABORATORY | | [...] [address] | [place] | [phone] | | [facility] | | [address] | | | - LABORATORY | | [...] [address] | [place] | [phone] | | [facility] | | [address] | | | - LABORATORY | | [...] [address] | [place] | [phone] | | [facility] | | [address] | | | - LABORATORY | | [...] [address] | [place] | [phone] | | [facility] | | [address] | | | - LABORATORY | | [...] mL/min/1.73m2 | [facility] | | | [place] | RATE,ESTIMATED | | MEDICAL | | | | mL/min/1.22d8Bojh than | | CENTER - | | [...] [address] | [place] | [phone] | | [facility] | | [address] | | | - LABORATORY | | [...] [address] | [place] | [phone] | | [facility] | | [address] | | | - LABORATORY | | [...] | [facility] | [address] | [place] | [phone] | | [facility] | | [address] | | | - LABORATORY | | [...] [address] | [place] | [phone] | | [facility] | | [address] | | | - LABORATORY | | [...] Demographics Patient Name ANDRES | | | [facility] Room Number 307 EMILE | | | Patient Number [id number] Date of Study | | | 11/05/2017 Visit Number [id number] | | | Referring Physician AUDI ANDRADE Number Date of | | | 1945 Celebrity Manager Jasbir Gatica | | | Age 72 year(s) Interpreting | | | GENIE WARREN | | | Early Intervention School Psychologist CHAYO | | | SHERRIE RADFORD | | | | | | Gender Female Nurse | | | Stress Heel Cover Splitter | | | Procedure Type of Study [...] valve cusps without reducedexcursion.Tricuspid | | | OpaxwOpeb-iv-sdmbzvwt tricuspid regurgitation suggestive of a mildly | [...] | | | EF | | | Hbncdwfol92% Left Ventricle Diastolic Dimension: 4.77 cm Septum [...] |excursion. | | |Tricuspid Valve | | |Xven-gi-apacknep tricuspid regurgitation suggestive of a mildly elevated [...] Volume: 60.67 ml | | | EF Pqfgnaims56% | | | | | | Left [...] Report | | (TTE) Demographics Patient Name [facility] Room Number 307 | | EMILE Patient Number [id number] Date of Study 11/05/2017 Visit Number | | [id number] Referring Physician AUDI ANDRADE | | Number Date of 1945 Celebrity Manager Jasbir Gatica Age | | 72 year(s) Interpreting GENIE WARREN | | Early Intervention School Psychologist CHAYO | | SHERRIE RADFORD MD Gender [...] aortic valve cusps | | without reducedexcursion.Tricuspid NgxgzUjcc-rv-gjgsqwez tricuspid regurgitation | | suggestive of a [...] LA Volume: 60.67 ml | | EF Qdzhqnzrb78% Left Ventricle Diastolic Dimension: 4.77 | | [...] reduced | |excursion. | |Tricuspid Valve | |Llzt-ru-csyhmdgc tricuspid regurgitation suggestive of a mildly elevated [...] LA Volume: 60.67 ml | | EF Qeacecbbm95% | | | | Left Ventricle | [...] [address] | [place] | [phone] | | [facility] | | [address] | | | - LABORATORY | | [...] [address] | [place] | [phone] | | [facility] | | [address] | | | - LABORATORY | | [...] [address] | [place] | [phone] | | [facility] | | [address] | | | - LABORATORY | | [...] [address] | [place] | [phone] | | [facility] | | [address] | | | - LABORATORY | | [...] + | [facility] | [address] | [place] | [phone] | | [facility] | | [address] | | | - LABORATORY | | [...] mL/min/1.73m2 | [facility] | | | [place] | RATE,ESTIMATED | | MEDICAL | | | | mL/min/1.54m4Arbd than | | CENTER - | | [...] + | [facility] | [address] | [place] | [phone] | | [facility] | | [address] | | | - LABORATORY | | [...] [address] | [place] | [phone] | | [facility] | | [address] | | | - LABORATORY | | [...] + | [facility] | [address] | [place] | [phone] | | [facility] | | [address] | | | - LABORATORY | | [...] [address] | [place] | [phone] | | [facility] | | [address] | | | - LABORATORY | | [...] [address] | [place] | [phone] | | [facility] | | [address] | | | - LABORATORY | | [...] [address] | [place] | [phone] | | [facility] | | [address] | | | - LABORATORY | | [...] ST. | [address] | [place] | [phone] | | [facility] | | [address] | | | - LABORATORY | | [...] [address] | [place] | [phone] | | [facility] | | [address] | | | - LABORATORY | | | | + + + + + Magnesium (11/04/2017 4:19 AM PST) + +-------+ + + + | Component | Value | Ref Range | Performed | Pathologist | | | | | At | Signature | + +-------+ + + + | Magnesium | 1.9 | 1.8 - 2.5 mg/dL | [facility] | | | | | | [facility] | | | | | | MEDICAL [...] + | [facility] | [address] | [place] | [phone] | | [facility] | | [address] | | | - LABORATORY | | [...] ST. | [address] | [place], [place] | [phone] | | [facility] | | [address] | | | - LABORATORY | | [...] | | GLOMERULAR FILTRATION | mL/min/1.73m2 | [facility] | | | [place] | RATE,ESTIMATED | | MEDICAL | | | | mL/min/1.37t9Qgqr than | | CENTER - | | [...] | | | | | mg/dL | [facility] | | | | | | MEDICAL [...] [address] | [place] | [phone] | | [facility] | | [address] | | | - LABORATORY | | [...] [address] | [place] | [phone] | | [facility] | | [address] | | | - LABORATORY | | [...] + | [facility] | [address] | [place] | [phone] | | [facility] | | [address] | | | - LABORATORY | | [...] [address] | [place] | [phone] | | [facility] | | [address] | | | - LABORATORY | | [...] [address] | [place] | [phone] | | [facility] | | [address] | | | - LABORATORY | | [...] [address] | [place] | [phone] | | [facility] | | [address] | | | - LABORATORY | | [...] | | | POC | | | [facility] | | | | | | MEDICAL [...] + | [facility] | [address] | [place] | [phone] | | [facility] | | [address] | | | - LABORATORY | | [...] ST. | [address] | [place] | [phone] | | [facility] | | [address] | | | - LABORATORY | | [...] [address] | [place] | [phone] | | [facility] | | [address] | | | - LABORATORY | | [...] | + + + + + | [facility] | [address] | [place], [place] | [phone] | | [facility] | | [address] | | | - LABORATORY | | [...] + | [facility] | [address] | [place] | [phone] | | [facility] | | [address] | | | - LABORATORY | | [...] + | [facility] | [address] | [place] | [phone] | | [facility] | | [address] | | | - LABORATORY | | [...] [address] | [place] | [phone] | | [facility] | | [address] | | | - LABORATORY | | [...] Performed at: 01 - [facility] [place] [address], | REFERENCE LAB | | [place], [place] [id number] Environmental Field Services Technician: Ernie Lee MD, Phone: | [facility] - TETE | | [phone] | | + + + + + + + + | Performing | Address | City/State/Zipcode | Phone Number | | Organization | | | | + + + + + | REFERENCE LAB | [address] | [place] [address] | [phone] | | [facility] | [address] [...] [address] | [place] | [phone] | | [facility] | | [address] | | | - LABORATORY | | [...] + | [facility] | [address] | [place] | [phone] | | [facility] | | [address] | | | - LABORATORY | | [...] [address] | [place] | [phone] | | [facility] | | [address] | | | - LABORATORY | | [...] test | | | | | | ([id number]). | | | | + + + + + + + + | Specimen | + + | Blood | + + + + + | Narrative | Performed At | + + + | Performed at: - [place] [address], | REFERENCE LAB | | [place], [place] [id number] Environmental Field Services Technician: Ernie Lee MD, Phone: | AB[facility] - TETE | | [phone] | | + + + + + + + + | Performing | Address | City/State/Zipcode | Phone Number | | Organization | | | | + + + + + | REFERENCE LAB | [address] | [place] [address] | [phone] | | [facility] | Drive [...] mL/min/1.73m2 | [facility] | | | [place] | RATE,ESTIMATED | | MEDICAL | | | | mL/min/1.55w9Sybh than | | CENTER - | | [...] [address] | [place] | [phone] | | [facility] | | [address] | | | - LABORATORY | | [...] | [facility] [facility] | [address] | [place] | [phone] | | [facility] | | [address] | | | - LABORATORY | | [...] + | [facility] | [address] | [place] | [phone] | | [facility] | | [address] | | | - LABORATORY | | [...] | | POC | | | [facility] | | | | | [...] [address] | [place] | [phone] | | [facility] | | [address] | | | - LABORATORY | | [...] + | [facility] | [address] | [place] | [phone] | | [facility] | | [address] | | | - LABORATORY | | | | + + + + + CT Abdomen Pelvis wo Contrast (11/02/2017 7:27 PM [facility]) + + | Specimen | + [...] ST. | [address] | [place], [place] | [phone] | | [facility] | | [address] | | | - LABORATORY | | [...] [address] | [place] | [phone] | | [facility] | | [address] | | | - LABORATORY | | [...] | [facility] | [address] | [place] | [phone] | | [facility] | | [address] | | | - LABORATORY | | [...] [address] | [place] | [phone] | | [facility] | | [address] | | | - LABORATORY | | [...] [address] | [place] | [phone] | | [facility] | | [address] | | | - LABORATORY | | [...] [address] | [place] | [phone] | | [facility] | | [address] | | | - LABORATORY | | [...] [address] | [place] | [phone] | | [facility] | | [address] | | | - LABORATORY | | [...] [address] | [place] | [phone] | | [facility] | | [address] | | | - LABORATORY | | [...] + | [facility] | [address] | [place] | [phone] | | [facility] | | [address] | | | - LABORATORY | | [...] [address] | [place] | [phone] | | [facility] | | [address] | | | - LABORATORY | | [...] [address] | [place] | [phone] | | [facility] | | [address] | | | - LABORATORY | | [...] [address] | [place] | [phone] | | [facility] | | [address] | | | - LABORATORY | | [...] ST. | [address] | [place] | [phone] | | [facility] | | [address] | | | - LABORATORY | | [...] [address] | [place] | [phone] | | [facility] | | [address] | | | - LABORATORY | | [...] + | [facility] | [address] | [place] | [phone] | | [facility] | | [address] | | | - LABORATORY | | [...] mL/min/1.73m2 | [facility] | | | [place] | RATE,ESTIMATED | | MEDICAL | | | | mL/min/1.96a9Eovq than | | CENTER - | | [...] + | [facility] | [address] | [place] | [phone] | | [facility] | | [address] | | | - LABORATORY | | [...] [address] | [place] | [phone] | | [facility] | | [address] | | | - LABORATORY | | [...] - 1.030 | [facility] | | | [place] | | | [facility] | | [...] + | [facility] | [address] | [place] | [phone] | | [facility] | | [address] | | | - LABORATORY | | [...] | | | | | | [employer] | | | | | [...] + | [facility] | [address] | [place] | [phone] | | [facility] | | [address] | | | - LABORATORY | | [...] [address] | [place] | [phone] | | [facility] | | [address] | | | - LABORATORY | | [...] + | [facility] | [address] | [place] | [phone] | | [facility] | | [address] | | | - LABORATORY | | [...] + | [facility] | [address] | [place] | [phone] | | [facility] | | [address] | | | - LABORATORY | | [...] [address] | [place] | [phone] | | [facility] | | [address] | | | - LABORATORY | | [...] [address] | [place] | [phone] | | [facility] | | [address] | | | - LABORATORY | | [...] + | [facility] | [address] | [place] | [phone] | | [facility] | | [address] | | | - LABORATORY | | [...] | third generation TSH | uIU/mL | [facility] | | | | test. | | [...] [address] | [place] | [phone] | | [facility] | | [address] | | | - LABORATORY | | [...] | | | | | | [employer] | | | | | [...] [address] | [place] | [phone] | | [facility] | | [address] | | | - LABORATORY | | [...] [address] | [place] | [phone] | | [facility] | | [address] | | | - LABORATORY | | [...] [address] | [place] | [phone] | | [facility] | | [address] | | | - LABORATORY | | [...] not | 12 (L)Comment: | >=60 | [facility] | | | | GLOMERULAR FILTRATION | mL/min/1.73m2 | [facility] | | | [place] | RATE,ESTIMATED | | MEDICAL | | | | mL/min/1.79h4Uhqy than | | CENTER - | | [...] + | [facility] | [address] | [place] | [phone] | | [facility] | | [address] | | | - LABORATORY | | [...] ST. | [address] | [place], [place] | [phone] | | [facility] | | [address] | | | - LABORATORY | | [...] [address] | [place] | [phone] | | [facility] | | [address] | | | - LABORATORY | | [...] [address] | [place] | [phone] | | [facility] | | [address] | | | - LABORATORY | | [...] for comparison only - no result from [place]. | [facility] | + + + [...] | | | | | | use [place] 10/325 if ordered. If | | | [...] | | | | | | | 5240-2454 Use NIGHT DOSE for | | | | | | | doses scheduled: HS, 3AM, | | | | | | | Nighttime 2629-3449, | | | | | | + [...] scheduled: AC, | | | NPO, Daytime 3097-3405 Use NIGHT | | | DOSE for doses scheduled: | | | HS, 3AM, Nighttime 5756-6642, | | + +---+ | | | [...] | | | | | | Infiltration, MEDICAL CUSTOMER SERVICE REPRESENTATIVE, Starting | | | | | | [...] | | | DAILY, First dose on [facility] 11/04/17 | | AM PST | [...]
--- OUTSIDE RECORDS SUMMARY | ~2019-09-08 | XMS | Encounter Summary ---
Demographics + + + | Address | [address] | | | [place] [address] | + + + | Home Phone [...] | Author | [facility] | | | and [place] | + + + | Organization | [facility] | | | and [place] | + + + | Address | Unknown | + + + | Phone | Unavailable | + + + Support + + + + + | Name | Relationship | Address | Phone | + + + + + | India Tilley | ECON | [address] | | | | | [place], [place] | | | | | [address] | | + + + + + | Yina La | ECON | Unknown | | + + + + + | Yina Peterson | ECON | Unknown | | + + + + + | Leatha Casillas | ECON | Unknown | | + + + + + Care Team Providers + +------+ + | Care Sunglass Clip Attacher Name | Role | Phone | + +------+ + PCP | Unavailable | + +------+ + Encounter Details +--------+ + + + + | Date | Type | Department | Care Team | Description | +--------+ + + + + | 12/05/ | Hospital | [facility] | Carlos Sandoval | | | 2007 | Encounter | MED CTR XRAY [address] | MD Kwame [address] [facility] | | | | | [place] | [place], [place] | | | | | [place] [address] | [id number] | | | | | [phone] | | | +--------+ + + + [...]
--- OUTSIDE RECORDS SUMMARY | ~2019-09-08 | XMS | Encounter Summary ---
Demographics + + + | Address | [address] | | | [place] [address] | + + + | Home Phone [...] + | Author | [facility] | | | and [place] | + + + | Organization | [facility] | | | and [place] | + + + | Address | Unknown | + + + | Phone | Unavailable | + + + Support + + + + + | Name | Relationship | Address | Phone | + + + + + | India Tilley | ECON | [address] | | | | | [place], [place] | | | | | [address] | | + + + + + | Yina La | ECON | Unknown | | + + + + + | Yina Peterson | ECON | Unknown | | + + + + + | Leatha Casillas | ECON | Unknown | | + + + + + Care Team Providers + +------+ + | Care Metal Stamping Machine Operator Name | Role | Phone [...] NEPHROLOGY [address] | M, DO [address] | Problem | | | | [address] | [address] | | | | | [place] | [place] | | | | | [address] | [address] | | | | | [phone] | | | +--------+ + + + [...]
--- OUTSIDE RECORDS SUMMARY | ~2019-09-08 | XMS | Encounter Summary ---
Demographics + + + | Address | [address] | | | [place] [address] | + + + | Home Phone [...] + | Author | [facility] | | | and [place] | + + + | Organization | [facility] | | | and [place] | + + + | Address | Unknown | + + + | Phone | Unavailable | + + + Support + + + + + | Name | Relationship | Address | Phone | + + + + + | India Tilley | ECON | [address] | | | | | [place], [place] | | | | | [address] | | + + + + + | Yina La | ECON | Unknown | | + + + + + | Yina Peterson | ECON | Unknown | | + + + + + | Leatha Casillas | ECON | Unknown | | + + + + + Care Team Providers + +------+ + | Care Refrigerator Assembler Name | Role | Phone | [...] | renal | PA-C [address] | [address] | | | | | disease | [address] | [place], [place] | | | | | ([facility]) | [place] | [address] [facility] | | | | | Procedures | [address] | [facility] [place] | | | | | [place] ESRD | [facility] | [address] Phone: | | | | | RELATED [place] | [place] | [phone] | | | | | MONTHLY | [address] | Fax: | | | | | 20&/> YR OLD | Phone: | [phone] | | | | | 4/> VISITS | [phone] | | | | | | | Fax: | | | | | | | [phone] | | + +--------+ + + + + Encounter Details +--------+ + + + + | Date | Type | Department | Care Team | Description | +--------+ + + + + | 10/31/ | Off-Site | [facility] | Gopi Muñoz | End stage renal | | 2019 | Visit | NEPHROLOGY [address] | M, DO [address] | disease (HCC) | | | | [address] | [address] | (Primary Dx) | | | | [place] | [place], [place] | | | | | [address] | [address] | | | | | [phone] | | | +--------+ + + + [...]
--- OUTSIDE RECORDS SUMMARY | ~2019-09-08 | XMS | Encounter Summary ---
Demographics + + + | Address | [address] | | | [place] [address] | + + + | Home Phone | | + + + | Preferred Language | Unknown | + + + | Marital Status | Single | + + + | Christian Affiliation | Unknown | + + + | Race | Unknown | + + + | Ethnic Group | Unknown | + + + Author + + + | Author | [facility] | | | and [place] | + + + | Organization | [facility] | | | and [place] | + + + | Address | Unknown | + + + | Phone | Unavailable | + + + Support + + + + + | Name | Relationship | Address | Phone | + + + + + | India Tilley | ECON | [address] | | | | | [place], [place] | | | | | [address] | | + + + + + | Yina La | ECON | Unknown | | + + + + + | Yina Peterson | ECON | Unknown | | + + + + + | Leatha Casillas | ECON | Unknown | | + + + + + Care Team Providers + +------+ + | Care Printed Circuit Boards Router Name | Role | Phone | + +------+ + PCP | Unavailable | + +------+ + Encounter Details +--------+ + + + + | Date | Type | Department | Care Team | Description | +--------+ + + + + | 01/05/ | Hospital | [facility] | Scott Koroma, | Closed fracture of | | 2018 | Encounter | MED CTR DERICK XRAY | MD Nash SEPULVEDA | neck of right femur, | | | | [address] [place] | [place], [place] | initial encounter | | | | [place], [place] | [address] | ([facility]); Right hip | | | | [address] | | pain | | | | [phone] | | | +--------+ + + + [...] section. | | | | | encounter ([facility]) | | | | | | Right [...] | FIXATION. Dictated and Signed by: Arun Hogde MD | | | Electronically signed: 01/05/2019 [...]
--- OUTSIDE RECORDS SUMMARY | ~2019-09-08 | XMS | Encounter Summary ---
Demographics + + + | Address | [address] | | | [place] [address] | + + + | Home Phone [...] + | Author | [facility] | | | and [place] | + + + | Organization | [facility] | | | and [place] | + + + | Address | Unknown | + + + | Phone | Unavailable | + + + Support + + + + + | Name | Relationship | Address | Phone | + + + + + | India Tilley | ECON | [address] | | | | | [place], [place] | | | | | [address] | | + + + + + | Yina La | ECON | Unknown | | + + + + + | Yina Peterson | ECON | Unknown | | + + + + + | Leatha Casillas | ECON | Unknown | | + + + + + Care Team Providers + +------+ + | Care Side Show Entertainer Name | Role | Phone | + +------+ + PCP | Unavailable | + +------+ + Encounter Details +--------+ + + + + | Date | Type | Department | Care Team | Description | +--------+ + + + + | 03/02/ | Hospital | [facility] | [place], | | | 2007 | Encounter | MED CTR EMERGENCY | Venkatesh Esteban MD [address] | | | | | [place] [address] | [facility] | | | | | [place], [place] | [place] [address] | | | | | [address] | [phone] | | | | | [phone] | | | +--------+ + + + [...]
--- OUTSIDE RECORDS SUMMARY | ~2019-09-08 | XMS | Encounter Summary ---
Demographics + + + | Address | [address] | | | [place] [address] | + + + | Home Phone [...] Author | [facility] | | | and [place] | + + + | Organization | [facility] | | | and [place] | + + + | Address | Unknown | + + + | Phone | Unavailable | + + + Support + + + + + | Name | Relationship | Address | Phone | + + + + + | India Tilley | ECON | [address] | | | | | [place], [place] | | | | | [address] | | + + + + + | Yina La | ECON | Unknown | | + + + + + | Yina Peterson | ECON | Unknown | | + + + + + | Leatha Casillas | ECON | Unknown | | + + + + + Care Team Providers + +------+ + | Care Mixing House Operator Name | Role | Phone [...] | | | | | [address] | [place] | | | | | [place] | [phone] | | | | | [address] | | | | | | [phone] | Vinnie Last MD | | | | | | [address] | | | | | | [place] | | | | | | [address] | | | | | | | [...] +----+---+ + + | | 1 | [place] | | | | 3 | 43-degrees | | | | 2 | | | | | 1 | | | +----+---+ + + | | 1 | First | | | | 3 | Inc/Proc St | | | | 2 | | | | | 8 | | | +----+---+ + + | | 1 | [place] off | | | | 5 | [...] 01/04/18 1728 by | | eral | [id number] catheter system; | Linh Gamez RN | [...] via | Zuleima Garrido MD | Lyndsay Mckeon DO | | | procedure documentation); Mask [...]
--- OUTSIDE RECORDS SUMMARY | ~2019-09-08 | XMS | Encounter Summary ---
Demographics + + + | Address | [address] | | | [place] [address] | + + + | Home Phone [...] | Author | [facility] | | | and [place] | + + + | Organization | [facility] | | | and [place] | + + + | Address | Unknown | + + + | Phone | Unavailable | + + + Support + + + + + | Name | Relationship | Address | Phone | + + + + + | India Tilley | ECON | [address] | | | | | [place], [place] | | | | | [address] | | + + + + + | Yina La | ECON | Unknown | | + + + + + | Yina Peterson | ECON | Unknown | | + + + + + | Leatha Casillas | ECON | Unknown | | + + + + + Care Team Providers + +------+ + | Care Glass Driller Name | Role | Phone | + +------+ + | Dangelo Renato Barr DIPESH | PCP | | + +------+ + Encounter Details +--------+ + + + + | Date | Type | Department | Care Team | Description | +--------+ + + + + | 07/12/ | Telephone | [facility] | [place] [place] | | | 2019 | | CENTER INTRA OP | MD [address] | | | | | [address] | [place] | | | | | [place], [place] | [place] [address] | | | | | [address] | [phone] | | | | | [phone] | | | +--------+ + + + [...]
--- OUTSIDE RECORDS SUMMARY | ~2019-09-08 | XMS | Encounter Summary ---
Demographics + + + | Address | [address] | | | [place] [address] | + + + | Home Phone [...] Author | [facility] | | | and [place] | + + + | Organization | [facility] | | | and [place] | + + + | Address | Unknown | + + + | Phone | Unavailable | + + + Support + + + + + | Name | Relationship | Address | Phone | + + + + + | India Tilley | ECON | [address] | | | | | [place], [place] | | | | | [address] | | + + + + + | Yina La | ECON | Unknown | | + + + + + | Yina Peterson | ECON | Unknown | | + + + + + | Leatha Casillas | ECON | Unknown | | + + + + + Care Team Providers + +------+ + | Care Senior Sales Administrator Name | Role | Phone | + [...] + + | 06/14/ | Telephone | [facility] | Tabatha Patel, | Care Coordination | | 2019 | | INFECTIOUS DISEASE | Logistics Account Manager | (Patient Timeline - | | | | [address] | | Line Care/Provider | | | | [place], [place] | | Management ) | | | | [address] | | | | | | [phone] | | | +--------+ + + + [...]
--- OUTSIDE RECORDS SUMMARY | ~2019-09-08 | XMS | Encounter Summary ---
Demographics + + + | Address | [address] | | | [place] [address] | + + + | Home Phone [...] | Author | [facility] | | | and Kamaljitana | + + + | Organization | [facility] | | | and [place] | + + + | Address | Unknown | + + + | Phone | Unavailable | + + + Support + + + + + | Name | Relationship | Address | Phone | + + + + + | India Tilley | ECON | [id number] | | | | | [place], [place] | | | | | [address] | | + + + + + | Yina La | ECON | Unknown | | + + + + + | Yina Peterson | ECON | Unknown | | + + + + + | Leatha Casillas | ECON | Unknown | | + + + + + Care Team Providers + +------+ + | Care Wheel Alignment Mechanic Name | Role | Phone | + +------+ + PCP | Unavailable | + +------+ + Encounter Details +--------+ + + + + | Date | Type | Department | Care Team | Description | +--------+ + + + + | 10/21/ | Abstract | [facility] | Santos Stephenson | | | 2018 | | SURGERY [address] | MD Kinga, FACS [address] | | | | | [address] [place], [place] | [address] [facility] | | | | | [address] | [place] [address] | | | | | [phone] | [phone] | | | | | | | [...]
--- OUTSIDE RECORDS SUMMARY | ~2019-09-08 | XMS | Encounter Summary ---
Demographics + + + | Address | [address] | | | [place] [address] | + + + | Home Phone [...] | [facility] | | | and [place] | + + + | Organization | [facility] | | | and [place] | + + + | Address | Unknown | + + + | Phone | Unavailable | + + + Support + + + + + | Name | Relationship | Address | Phone | + + + + + | India Tilley | ECON | [phone] | | | | | [place], [place] | | | | | [address] | | + + + + + | Yina La | ECON | Unknown | | + + + + + | Yina Peterson | ECON | Unknown | | + + + + + | Leatha Casillas | ECON | Unknown | | + + + + + Care Team Providers + +------+ + | Care Geothermal Production Manager Name | Role | Phone | + +------+ + PCP | Unavailable | + +------+ + Encounter Details +--------+ + + + + | Date | Type | Department | Care Team | Description | +--------+ + + + + | 11/08/ | Imaging | [facility] | Provider, | | | 2018 | Exam | MED CTR EXTERNAL | MD [address] | | | | | IMAGING | [address] | | | | | [phone] | [place] [address] | | +--------+ + + + + [...] for comparison only - no result from [place]. | [facility] | + + + + +---------+ + + | Performing | Address | City/State/Zipcode | Phone Number | | Organization | | | | + +---------+ + + | [facility] | | | | + +---------+ + + documented in this encounter Visit Diagnoses Not on filedocumented in this encounter"
--- OUTSIDE RECORDS SUMMARY | ~2019-09-08 | XMS | Encounter Summary ---
Demographics + + + | Address | [address] | | | [place] [address] | + + + | Home Phone [...] [facility] | | | and [place] | + + + | Organization | [facility] | | | and [place] | + + + | Address | Unknown | + + + | Phone | Unavailable | + + + Support + + + + + | Name | Relationship | Address | Phone | + + + + + | India Tilley | ECON | [address] | | | | | [place], [place] | | | | | [address] | | + + + + + | Yina La | ECON | Unknown | | + + + + + | Yina Peterson | ECON | Unknown | | + + + + + | Leatha Casillas | ECON | Unknown | | + + + + + Care Team Providers + +------+ + | Care Director Of Event Management Name | Role | Phone | + +------+ + PCP | Unavailable | + +------+ + Encounter Details +--------+ + + + + | Date | Type | Department | Care Team | Description | +--------+ + + + + | 12/19/ | Hospital | [facility] | Patricia, | | | 2007 - | Encounter | MED CTR CANCER | Venkatesh Forte MD [address] | | | | | [place] [address] | [facility] | | | 01/10/ | | [place] | [place] [address] | | | 2007 | | [address] | [phone] | | | | | [phone] | | | +--------+ + + + [...]
--- OUTSIDE RECORDS SUMMARY | ~2019-09-08 | XMS | Encounter Summary ---
Demographics + + + | Address | [address] | | | [place] [address] | + + + | Home Phone [...] | Author | [facility] | | | and [place] | + + + | Organization | [facility] | | | and [place] | + + + | Address | Unknown | + + + | Phone | Unavailable | + + + Support + + + + + | Name | Relationship | Address | Phone | + + + + + | India Tilley | ECON | [address] | | | | | [place], [place] | | | | | [address] | | + + + + + | Yina La | ECON | Unknown | | + + + + + | Yina Peterson | ECON | Unknown | | + + + + + | Leatha Casillas | ECON | Unknown | | + + + + + Care Team Providers + +------+ + | Care Field Service Consultant Name | Role | Phone | [...] | renal | PA-C [address] | [address] | | | | | disease | [place] | [place] | | | | | ([facility]) | [place] | [address] [facility] | | | | | Procedures | [address] | [facility] [place] | | | | | [place] ESRD | [facility] | [address] Phone: | | | | | [address]ATED [place] | [place] | [phone] | | | | | MONTHLY | [address] | Fax: | | | | | 20&/> YR OLD | Phone: | [phone] | | | | | 4/> VISITS | [phone] | | | | | | | Fax: | | | | | | | [phone] | | + +--------+ + + + + Encounter Details +--------+ + + + + | Date | Type | Department | Care Team | Description | +--------+ + + + + | 05/08/ | Off-Site | [facility] | Gopi Muñoz | Osteomyelitis, | | 2019 | Visit | NEPHROLOGY [address] | M, DO [address] | unspecified site, | | | | [address] | [place] | unspecified type | | | | [place], [place] | [place] [facility], [place] | (HCC) (Primary Dx); | | | | [address] | [id number] | ESRD (end stage | | | | [phone] | | renal disease) on | | [...] not seen.schedule an office visit will at [facility], 2019.] documented in thi s encounter Plan of Treatment Not on filedocumented as of this encounter Visit Diagnoses + + | Diagnosis | + + | Osteomyelitis, unspecified site, unspecified type ([facility]) - Primary | + + | ESRD (end stage renal disease) on dialysis ([facility]) End stage renal disease | + + documented in this encounter"
--- OUTSIDE RECORDS SUMMARY | ~2019-09-08 | XMS | Encounter Summary ---
Demographics + + + | Address | [address] | | | [place] [address] | + + + | Home Phone | | + + + | Preferred Language | Unknown | + + + | Marital Status | Single | + + + | Taoist Affiliation | Unknown | + + + | Race | Unknown | + + + | Ethnic Group | Unknown | + + + Author + + + | Author | [facility] | | | and [place] | + + + | Organization | [facility] | | | and [place] | + + + | Address | Unknown | + + + | Phone | Unavailable | + + + Support + + + + + | Name | Relationship | Address | Phone | + + + + + | India Tilley | ECON | [address] | | | | | [place], [place] | | | | | [address] | | + + + + + | Yina La | ECON | Unknown | | + + + + + | Yina Peterson | ECON | Unknown | | + + + + + | Leatha Casillas | ECON | Unknown | | + + + + + Care Team Providers + +------+ + | Care Mix Mill Tender Name | Role | Phone | + +------+ + PCP | Unavailable | + +------+ + Encounter Details +--------+ + + + + | Date | Type | Department | Care Team | Description | +--------+ + + + + | 11/24/ | Hospital | [facility] | | | | 2006 - | Encounter | MED CTR CANCER | | | | | | CENTER [facility] [address] | | | | 12/11/ | | [place] | | | | 2006 | | [address] | | | | | | [phone] | | | +--------+ + + + [...]
--- OUTSIDE RECORDS SUMMARY | ~2019-09-08 | XMS | Encounter Summary ---
Demographics + + + | Address | [address] | | | [place] [address] | + + + | Home Phone | | + + + | Preferred Language | Unknown | + + + | Marital Status | Single | + + + | Baptism Affiliation | Unknown | + + + | Race | Unknown | + + + | Ethnic Group | Unknown | + + + Author + + + | Author | [facility] | | | and [place] | + + + | Organization | [facility] | | | and [place] | + + + | Address | Unknown | + + + | Phone | Unavailable | + + + Support + + + + + | Name | Relationship | Address | Phone | + + + + + | India Tilley | ECON | [address] | | | | | [place], [place] | | | | | [address] | | + + + + + | Yina La | ECON | Unknown | | + + + + + | Yina Peterson | ECON | Unknown | | + + + + + | Leatha Casillas | ECON | Unknown | | + + + + + Care Team Providers + +------+ + | Care Building Trades Teacher Name | Role | Phone | [...] | | | | | [address] | [place] | | | | | [place] | [address] | | | | | [address] | | | | | | [phone] | | | +--------+ + + + [...] +----+---+ + + | | 2 | [place] | | | | 2 | 43-degrees [...] 02/05/18 0130 by | | eral | [id number] catheter system; | Keren Hernandez RN | [...]
--- OUTSIDE RECORDS SUMMARY | ~2019-09-08 | XMS | Encounter Summary ---
Demographics + + + | Address | [address] | | | [place] [address] | + + + | Home Phone [...] Author | [facility] | | | and [place] | + + + | Organization | [facility] | | | and [place] | + + + | Address | Unknown | + + + | Phone | Unavailable | + + + Support + + + + + | Name | Relationship | Address | Phone | + + + + + | India Tilley | ECON | [address] | | | | | [place], [place] | | | | | [address] | | + + + + + | Yina La | ECON | Unknown | | + + + + + | Yina Peterson | ECON | Unknown | | + + + + + | Leatha Casillas | ECON | Unknown | | + + + + + Care Team Providers + +------+ + | Care Armature Coil Winder Name | Role | Phone | + +------+ + PCP | Unavailable | + +------+ + Encounter Details +--------+ + + + + | Date | Type | Department | Care Team | Description | +--------+ + + + + | 02/03/ | Hospital | [facility] | Scott Koroma, | Closed fracture of | | 2019 | Encounter | MED CTR DERICK XRAY | MD Nash SEPULVEDA | neck of right femur, | | | | [address] [place] | [place], [place] | initial encounter | | | | [place], [place] | [id number] | ([facility]); Right hip | | | | [address] | | pain; H/O major | | | | [phone] | | orthopedic surgery | +--------+ + [...] | | | | | | | ([facility]), Right hip | | | | | [...] section. | | | | | encounter ([facility]) | | | | | | Right [...]
--- OUTSIDE RECORDS SUMMARY | ~2019-09-08 | XMS | Encounter Summary ---
Demographics + + + | Address | [address] | | | [place] [address] | + + + | Home Phone [...] | Author | [facility] | | | and Kamaljitana | + + + | Organization | [facility] | | | and [place] | + + + | Address | Unknown | + + + | Phone | Unavailable | + + + Support + + + + + | Name | Relationship | Address | Phone | + + + + + | India Campos | ECON | [address] | | | | [place], [place] | | | | | [address] | | + + + + + | Yina La | ECON | Unknown | | + + + + + | Yina Peterson | ECON | Unknown | | + + + + + | Leatha Casillas | ECON | Unknown | | + + + + + Care Team Providers + +------+ + | Care E Business Project Manager Name | Role | Phone | [...] renal | [address] | [address] | | | | | disease) on | [facility] | [place], | | | | | dialysis | [place], [place] | [place] [address] | | | | | ([facility]) | [address] | Phone: | | | | | | Phone: | [phone] | | | | | | [phone] | Fax: | | | | | | Fax: | [phone] | | | | | | [phone] | | +--------+--------+ + + + + [...] | | | | dialysis | [place] | [place] | | | | | ([facility]) | [address] | [address] | | | | | Essential | Phone: | Phone: | | | | | hypertension | [phone] | [phone] | | | | | Type 2 | Fax: | Fax: | | | | | diabetes | [phone] | [phone] | | | | | mellitus | [...] | | | | | | | ([facility]) | | | +--------+ + + + + + Evaluate & Treat (Routine) +--------+ + + + + + | Status | Reason | Specialty | Diagnoses / | Referred By | Referred To | | | | | Procedures | Contact | Contact | +--------+ + + + + + | Closed | Specialty | Physical | Diagnoses | [facility], | [facility] | | | Services | Therapy | ESRD (end | MD Nora | HOSPITAL | | | Required | | stage renal | [address] | [address] | | | | | disease) on | [facility] | [address] | | | | | dialysis | [facility] [place] | [place] | | | | | ([facility]) | [address] | [address] | | | | | Essential | Phone: | Phone: | | | | | hypertension | [phone] | [phone] | | | | | Type 2 | Fax: | Fax: | | | | | diabetes | [phone] | [phone] | | | | | mellitus | [...] | | | | | | | ([facility]) | | | +--------+ + + + [...] + + | 05/20/ | Hospital | [facility] | Mirza Retana | Hypoxia; Pulmonary | | 2019 - | Encounter | [facility] | MD Coy [address] | edema with | | | | [address] [place] | [address] [place] | congestive heart | | 05/25/ | | [place] [address] | [place] [address] | failure, NYHA class | | 2019 | | [phone] | [phone] | 4 (HCC); ESRD (end | | | | | | stage renal disease) | | | | | Nora Christina MD | on dialysis ([facility]); | | | | | [address] | Hypertensive | | | | | [place], [place] | urgency, malignant; | | | | | [address] | Anemia in chronic | | | | | | kidney disease, on | | | | | | chronic dialysis | | | | | | ([facility]); Essential | | | | | | hypertension; | | | | | | Osteomyelitis of | | | | | | thoracic region | | | | | | ([facility]); Type 2 | | | [...] Christina MD - 05/25/2019 11:[address] [facility] [place] HOSPITALIST DISCHARGE SUMMARY Pt. 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 S/p thoracentesis wit h 1300cc fluid removed, studies c/w transudative effusion. Cytology negative for malignant c ells. No growth on culture thus far. Patient is on room air. Of note, recent echo in March sh owed normal EF. 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 SBP 200s on a rrival here. Blood pressure improved after HD, resumption of home medications. Amlodipine an d losartan also added, Nephrology will CTM as outpatient. #Acute metabolic encephalopathy Possibly 2/2 medication as patient received 1mg Ativan at [facility] [employer] INSULATION INSTALLER. At baseline currently. #Recent osteomyelitis Patient admitted [...] Nephrology Why: Nephrology follow up Contact information: [address] [place] [address] Condition: stable Diet: renal, cc Greater than 30 minutes were spent on discharge and coordination of post-hospital care. Electronically signed by: Nora Christina MD, 05/25/2019 11:24 [facility] documented in this enco unter [...] will likely include a biopsy in the [facility] down the line. Nora Christina MD [...] of Anemia, Arthritis, Back pain, Breast cancer ([facility]), Cancer ([facility]), Diabetes (HCC), Heart disease, Hemodialysis patient ([facility]), History of blood clots, Hypercholesteremia, Hypertensio n, Hypothyroidism, Renal failure, Seasonal allergies, and Stroke (cerebrum) ([facility]). . Risk fa ctors for MDR organisms [...] Culture, Body Fluid, Sterile, Smear, with Anaerobes [[id number]] Collected: 05/22/19 150 Order Status: Sent Lab Status: In process Updated: 05/22/19 151 Specimen: Body Fluid from Pleural Fluid, Left Narrative: The following orders were created for panel order Culture, Body Fluid, Sterile, Smear, wit h Anaerobes. Procedure Abnormality Status --------- ------ Culture, Body Fluid, Aerobe[[id number]] Preliminary result Culture, Body Fluid, Bre...[[id number]] In process Please view results for these tests on the individual orders. Culture, Fungus, Smear [[id number]] Collected: 05/22/19 150 Order Status: Sent Lab Status: In process Updated: 05/22/19 1510 Specimen: Body Fluid from Pleural Fluid, Left Culture, Body Fluid, Aerobe [[id number]] Collected: 05/22/19 150 Order Status: Completed Lab Status: Preliminary result Updated: 05/24/19 1038 Specimen: Body Fluid from Pleural Fluid, Left Culture No growth to date Gram Stain Result 4+ White Blood Cells No organisms seen Culture, Body Fluid, Anaerobe [[id number]] Collected: 05/22/19 1509 Order Status: Resulted Lab Status: In process Updated: 05/22/19 1510 Specimen: Body Fluid from Pleural Fluid, Left Culture, MRSA [[id number]] Collected: 05/20/192021 Order Status: Completed Lab Status: Final result Updated: 05/22/19 0753 Specimen: Tissue from Nares Culture Negative for MRSA by chromogenic agar method. 2+ Coagulase positive Staphylococcus Culture, Blood, 2nd Specimen [[id number]] Collected: 05/18/19 1548 Order Status: Completed Lab Status: Final result Updated: 05/24/19545 RESULT NO GROWTH 6 DAYS RESULT Testing performed at [facility];[address] [place] [address];[place] [address] Comment: Testing performed at [facility] [address], [address] [place] [address] Culture, Blood [[id number]] Collected: 05/18/19 1508 Order Status: Completed Lab Status: Final result Updated: 05/24/19545 Specimen: Blood from Antecubital, Right RESULT NO GROWTH 6 DAYS RESULT Testing performed at [facility] [place] [address];[place] [address] Comment: Testing performed at [facility] [address], [address] [place] [address], [place] [address] Culture, Blood [[id number]] Collected: 05/18/19 1447 Order Status: Canceled Lab [...] and htn Prior to admission dialysis schedule: [facility] Vancomycin Dosing in HD patients: Loading [...] ESR, Cxs, case with his previous ID Conservation Assistant, Dr. Nick Miller MD . He recommends [...] Bx's here. Therefore, shai kearney confer with [facility], outpt. She was agreeable to staying one more nite for HD and clarif y AB regimen. Vanc. /Cefepime were given, IV, during discussion, after reviewing MRI report but before the phone conversation with Dr. Jung. BP control is better. Her Mental status is very clear. Also had HD x 5 hrs, 2K+, 35 HCO3 a nd tolerated well. [facility] Joo Rodriguez, Net Wpf Developer - 05/24/2019 3:46 PM PDT VANCOMYCIN PER [...] Culture, Body Fluid, Sterile, Smear, with Anaerobes [[id number]] Collected: 05/22/19 150 Order Status: Sent Lab Status: In process Updated: 05/22/191512 Specimen: Body Fluid from Pleural Fluid, Left Narrative: The following orders were created for panel order Culture, Body Fluid, Sterile, Smear, wit h Anaerobes. Procedure Abnormality Status --------- ------ Culture, Body Fluid, Aerobe[[id number]] Preliminary result Culture, Body Fluid, Bre...[[id number]] In process Please view results for these tests on the individual orders. Culture, Fungus, Smear [[id number]] Collected: 05/22/19 150 Order Status: Sent Lab Status: In process Updated: 05/22/19 151 Specimen: Body Fluid from Pleural Fluid, Left Culture, Body Fluid, Aerobe [[id number]] Collected: 05/22/19 150 Order Status: Completed Lab Status: Preliminary result Updated: 05/24/19 1038 Specimen: Body Fluid from Pleural Fluid, Left Culture No growth to date Gram Stain Result 4+ White Blood Cells No organisms seen Culture, Body Fluid, Anaerobe [[id number]] Collected: 05/22/19 150 Order Status: Resulted Lab Status: In process Updated: 05/22/19 151 Specimen: Body Fluid from Pleural Fluid, Left Culture, MRSA [[id number]] Collected: 05/20/192021 Order Status: Completed Lab Status: Final result Updated: 05/22/19 0753 Specimen: Tissue from Nares Culture Negative for MRSA by chromogenic agar method. 2+ Coagulase positive Staphylococcus Culture, Blood, 2nd Specimen [[id number]] Collected: 05/18/19 1548 Order Status: Completed Lab Status: Final result Updated: 05/24/19545 RESULT NO GROWTH 6 DAYS RESULT Testing performed at [facility];[address] [place] [address];[place] [address] Comment: Testing performed at [facility], [address] [place] [address], [place] [address] Culture, Blood [[id number]] Collected: 05/18/19 1508 Order Status: Completed Lab Status: Final result Updated: 05/24/19545 Specimen: Blood from Antecubital, Right RESULT NO GROWTH 6 DAYS RESULT Testing performed at [facility];[address] [place] [address];[place] [address] Comment: Testing performed at [facility], [address] [place] [address], [place] [address] Culture, Blood [[id number]] Collected: 05/18/19 1447 Order Status: Canceled Lab [...] BP elevated Prior to admission dialysis schedule: [facility] Vancomycin Dosing in HD patients: Loading [...] Monitoring Protocol Electronically signed by: Joo Bo, Net Wpf Developer 05/24/2019 15:46Electroni terri signed by Joo Bo, Net Wpf Developer at 05/24/2019 4:49 PM Kwame Guerin MD - 05/24/2019 11:04 AM PDTFormatting of this note might be different from the origin al. [facility] [place] HOSPITALIST PROGRESS NOTE Patient: Ara Campos : 1945: Age: 74 y.o. 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 At baseline currently. #Recent osteomyelitis Patient admitted with T11-12 osteomyelitis and completed 6 weeks vanc/cefepime. Rep eat MRI again redemonstrated possible osteomyelitis - vanc and cefepime have been resumed, Deepa Muñoz is discussing case with ID. #Diabetes Blood sugars at goal. CCM. Patient is again very upset about [facility] and is eating little to no food [...] Culture, Body Fluid, Sterile, Smear, with Anaerobes [[id number]] Collected: 05/22/19 150 Order Status: Sent Lab Status: In process Updated: 05/22/191512 Specimen: Body Fluid from Pleural Fluid, Left Narrative: The following orders were created for panel order Culture, Body Fluid, Sterile, Smear, wit h Anaerobes. Procedure Abnormality Status --------- ------ Culture, Body Fluid, Aerobe[[id number]] Preliminary result Culture, Body Fluid, Bre...[[id number]] In process Please view results for these tests on the individual orders. Culture, Fungus, Smear [[id number]] Collected: 05/22/19 150 Order Status: Sent Lab Status: In process Updated: 05/22/191509 Specimen: Body Fluid from Pleural Fluid, Left Culture, Body Fluid, Aerobe [[id number]] Collected: 05/22/19 1509 Order Status: Completed Lab Status: Preliminary result Updated: 05/24/19 1038 Specimen: Body Fluid from Pleural Fluid, Left Culture No growth to date Gram Stain Result 4+ White Blood Cells No organisms seen Culture, Body Fluid, Anaerobe [[id number]] Collected: 05/22/19 1509 Order Status: Resulted Lab [...] rate 6L/min Nora Christina MD 05/24/2019 11:04 [facility] Michelle Solorzano Phar mD - 05/23/2019 6:27 [...] Tobacco & Alcohol use/frequency: ? 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 She either di d not want to take her medications, or she stated that she did not know if she was taking th em. She did not want to do the interview. 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 At baseline currently. #Recent osteomyelitis Patient admitted [...] Culture, Body Fluid, Sterile, Smear, with Anaerobes [[id number]] Collected: 05/22/191508 Order Status: Sent Lab Status: In process Updated: 05/22/191512 Specimen: Body Fluid from Pleural Fluid, Left Narrative: The following orders were created for panel order Culture, Body Fluid, Sterile, Smear, wit h Anaerobes. Procedure Abnormality Status --------- ------ Culture, Body Fluid, Aerobe[[id number]] Preliminary result Culture, Body Fluid, Bre...[[id number]] In process Please view results for these tests on the individual orders. Culture, Fungus, Smear [[id number]] Collected: 05/22/191508 Order Status: Sent Lab Status: In process Updated: 05/22/191509 Specimen: Body Fluid from Pleural Fluid, Left Culture, Body Fluid, Aerobe [[id number]] Collected: 05/22/191508 Order Status: Completed Lab Status: Preliminary result Updated: 05/23/19902 Specimen: Body Fluid from Pleural Fluid, Left Culture No growth to date Gram Stain Result 4+ White Blood Cells No organisms seen Culture, Body Fluid, Anaerobe [[id number]] Collected: 05/22/191508 Order Status: Resulted Lab Status: In process Updated: 09/09/19 1510 Specimen: Body Fluid from Pleural Fluid, Left Culture, MRSA [[id number]] Collected: 05/20/192021 Order Status: Completed Lab Status: Final result Updated: 05/22/19 0758 Specimen: Tissue from Nares Culture Negative for [...] rate 0.5L/min Nora Christina MD 05/23/2019 15:20 [facility] documented in this enco unter Plan of [...] | | | | | | dialysis ([facility]) | | | | | | Essential [...] | | | | | | insulin ([facility]) | | + + +--------+ + + | Ambulatory referral | Outpatient | Routin | ESRD (end stage | Ordered: 05/25/2019 | | to Occupational | Referral | e | renal disease) on | | | Therapy | | | dialysis ([facility]) | | | | | | Essential [...] + | [facility] | [address] | [place] | [phone] | | [facility] | | [address] | | | - LABORATORY | | [...] | | | POC | | | [facility] | | | | | [...] + | [facility] | [address] | [place] | [phone] | | [facility] | | [address] | | | - LABORATORY | | [...] not | 11 (L)Comment: | >=60 | [facility] | | | | GLOMERULAR FILTRATION | mL/min/1.73m2 | [facility] | | | SAUDI ARABIAN | RATE,ESTIMATED | | MEDICAL | | | | mL/min/1.70g8Bbwu than | | CENTER - | | [...] + | [facility] | [address] | [place] | [phone] | | [facility] | | [address] | | | - LABORATORY | | [...] + | [facility] | [address] | [place] | [phone] | | [facility] | | [address] | | | - LABORATORY | | [...] [address] | [place] | [phone] | | [facility] | | [address] | | | - LABORATORY | | [...] ST. | [address] | [place], [place] | [phone] | | [facility] | | [address] | | | - LABORATORY | | [...] + | [facility] | [address] | [place] | [phone] | | [facility] | | [address] | | | - LABORATORY | | [...] (H) | 9 - 23 mg/dL | [facility] | | | | | | ST. [...] mL/min/1.73m2 | [facility] | | | [place]UDI [place] | RATE,ESTIMATED | | MEDICAL | | | | mL/min/1.83t6Bdha than | | CENTER - | | [...] + | [facility] | [address] | [place] | [phone] | | [facility] | | [address] | | | - LABORATORY | | [...] [address] | [place] | [phone] | | [facility] | | [address] | | | - LABORATORY | | [...] [address] | [place] | [phone] | | [facility] | | [address] | | | - LABORATORY | | [...] [address] | [place] | [phone] | | [facility] | | [address] | | | - LABORATORY | | [...] [address] | [place] | [phone] | | [facility] | | [address] | | | - LABORATORY | | [...] + | [facility] | [address] | [place] | [phone] | | [facility] | | [address] | | | - LABORATORY | | [...] | mL/min/1.73m2 | [facility] | | | SAUDI ARABIAN | RATE,ESTIMATED | | MEDICAL | | | | mL/min/1.82g8Cgmc than | | CENTER - | | [...] + | [facility] | [address] | [place] | [phone] | | [facility] | | [address] | | | - LABORATORY | | [...] | nRBC | | K/uL | [facility] | | | | | [...] [address] | [place] | [phone] | | [facility] | | [address] | | | - LABORATORY | | [...] [address] | [place] | [phone] | | [facility] | | [address] | | | - LABORATORY | | [...] ST. | [address] | [place] | [phone] | | [facility] | | [address] | | | - LABORATORY | | [...] [address] | [place] | [phone] | | [facility] | | [address] | | | - LABORATORY | | [...] + | Performed at: 02 - [facility] [address], | REFERENCE LAB | | [place], [place] [id number] Project Manager Finance: Violette Mcconnell MD, Phone: | [facility] | | [phone] | | + + + + + + + + | Performing | Address | City/State/Zipcode | Phone Number | | Organization | | | | + + + + + | REFERENCE LAB | [address] | [place] [address] | [phone] | | [facility] | Drive [...] + + | Performed at: 01 - [place] [place] [address], | REFERENCE LAB | | [place], [place] [id number] Project Manager Finance: Ernie Lee MD, Phone: | [facility] | | [phone] | | + + + + + + + + | Performing | Address | City/State/Zipcode | Phone Number | | Organization | | | | + + + + + | REFERENCE LAB | [address] | [place] [address] | [phone] | | [facility] | Drive [...] ST. | [address] | [place], [place] | [phone] | | [facility] | | [address] | | | - LABORATORY | | [...] | [address] | [place] | [phone] | | [facility] | | [address] | | | - LABORATORY | | [...] | + + + | Performed at: [facility] [place] [address], | REFERENCE LAB | | [place] [id number] Project Manager Finance: Ernie Lee MD, Phone: | [facility] | | [phone] Performed at: [address] | | | [place] [id number] Project Manager Finance: Violette Mcconnell MD, | | | Phone: [phone] | | + + + + + + + + | Performing | Address | City/State/Zipcode | Phone Number | | Organization | | | | + + + + + | REFERENCE LAB | [address] | [place] [address] | [phone] | | [facility] | [facility] | | | + + + [...] ST. | [address] | [place], [place] | [phone] | | [facility] | | [address] | | | - LABORATORY | | [...] [address] | [place] | [phone] | | [facility] | | [address] | | | - LABORATORY | | [...] + | [facility] | [address] | [place] | [phone] | | [facility] | | [address] | | | - LABORATORY | | [...] | | | POC | | | [facility] | | | | | [...] + | [facility] | [address] | [place] | [phone] | | [facility] | | [address] | | | - LABORATORY | | [...] | mL/min/1.73m2 | [facility] | | | SAUDI ARABIAN | RATE,ESTIMATED | | MEDICAL | | | | mL/min/1.27o3Usxy than | | CENTER - | | [...] + | [facility] | [address] | [place] | [phone] | | [facility] | | [address] | | | - LABORATORY | | [...] | nRBC | | K/uL | [facility] | | | | | [...] [address] | [place] | [phone] | | [facility] | | [address] | | | - LABORATORY | | [...] [address] | [place] | [phone] | | [facility] | | [address] | | | - LABORATORY | | [...] [address] | [place] | [phone] | | [facility] | | [address] | | | - LABORATORY | | [...] ST. | [address] | [place], [place] | [phone] | | [facility] | | [address] | | | - LABORATORY | | [...] [address] | [place] | [phone] | | [facility] | | [address] | | | - LABORATORY | | [...] + | [facility] | [address] | [place] | [phone] | | [facility] | | [address] | | | - LABORATORY | | [...] [address] | [place] | [phone] | | [facility] | | [address] | | | - LABORATORY | | [...] | | | FILTRATION | mL/min/1.73m2 | [facility] | | | SAUDI ARABIAN | RATE,ESTIMATED | | MEDICAL | | | | mL/min/1.03c0Upll than | | CENTER - | | [...] [address] | [place] | [phone] | | [facility] | | [address] | | | - LABORATORY | | [...] + | [facility] | [address] | [place] | [phone] | | [facility] | | [address] | | | - LABORATORY | | [...] [address] | [place] | [phone] | | [facility] | | [address] | | | - LABORATORY | | [...] + | [facility] | [address] | [place] | [phone] | | [facility] | | [address] | | | - LABORATORY | | [...] ST. | [address] | [place] | [phone] | | [facility] | | [address] | | | - LABORATORY | | [...] | this study were reported by the [facility] radiologist on | | | May [...] PHYSICIAN: Gopi Muñoz MD PATIENT NAME: | [place] PATH[facility]Y | | ARA CAMPOS GENDER: Mami [...] preparation was | | | performed by [facility] [address] [place] [address] | | | [place] [address] and [facility] [address] [facility] | | | [place] [address]. Professional interpretation was performed | | | by [facility] - [facility] - [address] [facility] | | | [place] [address] (Research And Development Chemist: Alen Simpson, | | | .; IA#:[id number]).8 Diagnostician: Darcie López M.S., | | | CT(ASCP), [facility] Log Getter Diagnostician: Alen Kearney | | | Calvin [...] | + + + + + | [facility] | [address] | [place], [place] | [phone] | | [facility] | | [address] | | | - LABORATORY | | [...] + | [facility] | [address] | [place] | [phone] | | [facility] | | [address] | | | - LABORATORY | | [...] [address] | [place] | [phone] | | [facility] | | [address] | | | - LABORATORY | | [...] + | [facility] | [address] | [place] | [phone] | | [facility] | | [address] | | | - LABORATORY | | [...] | | | | uIU/mL | [facility] | | | | | [...] [address] | [place] | [phone] | | [facility] | | [address] | | | - LABORATORY | | [...] + | [facility] | [address] | [place] | | | [facility] | | [address] | | | - BLOOD BANK | [...] | | | | | | [employer] | | | | | [...] + | [facility] | [address] | [place], [place] | [phone] | | [facility] | | [address] | | | - LABORATORY | | [...] | Critical Result called | | [facility] | | | | to and read [...] [address] | [place] | [phone] | | [facility] | | [address] | | | - LABORATORY | | [...] + | [facility] | [address] | [place] | [phone] | | [facility] | | [address] | | | - LABORATORY | | [...] [address] | [place] | [phone] | | [facility] | | [address] | | | - LABORATORY | | [...] [address] | [place] | [phone] | | [facility] | | [address] | | | - LABORATORY | | [...] (H) | 9 - 23 mg/dL | [facility] | | | | | | [facility] | | [facility] | [facility] | | | | | | CENTER - | | | | | | LABORATORY | | + + + + + + | Creatinine | 7.11 (H) | 0.55 - 1.02 | [facility] | | | | | mg/dL | [facility] | | | | | | MEDICAL | | | | | | CENTER - | | | | | | LABORATORY | | + + + + + + | eGFR if not | 6 (L)Comment: GLOMERULAR | >=60 | [facility] | | | | FILTRATION | mL/min/1.73m2 | [facility] | | | [place] | RATE,ESTIMATED | | MEDICAL | | | | mL/min/1.40d5Kejy than | | CENTER - | | [...] + | [facility] | [address] | [place] | [phone] | | [facility] | | [address] | | | - LABORATORY | | [...] [address] | [place] | [phone] | | [facility] | | [address] | | | - LABORATORY | | [...] [address] | [place] | [phone] | | [facility] | | [address] | | | - LABORATORY | | [...] | | | 50 mg, Oral, ONCE, [place] 05/21/19 at | | 19 7:55 | [...]
--- OUTSIDE RECORDS SUMMARY | ~2019-09-08 | XMS | Encounter Summary ---
Demographics + + + | Address | [address] | | | [place] [address] | + + + | Home Phone [...] + | Author | [facility] | | | and [place] | + + + | Organization | [facility] | | | and [place] | + + + | Address | Unknown | + + + | Phone | Unavailable | + + + Support + + + + + | Name | Relationship | Address | Phone | + + + + + | India Tilley | ECON | [address] | | | | | [place], [place] | | | | | [address] | | + + + + + | Yina La | ECON | Unknown | | + + + + + | Ynia Peterson | ECON | Unknown | | + + + + + | Leatha Casillas | ECON | Unknown | | + + + + + Care Team Providers + +------+ + | Care Tearoom Hostess Name | Role | Phone | + +------+ + PCP | Unavailable | + +------+ + Encounter Details +--------+ + + + + | Date | Type | Department | Care Team | Description | +--------+ + + + + | 11/07/ | Hospital | [facility] | Peyman Wu, | CHR ISCHEMIC HRT DIS | | 2002 | Encounter | [facility] | [address] | NOS | | | | CLINICAL DECISION | [address] | | | | | [address] [facility] | [address] | | | | | [place], [place] | [phone] | | | | | [address] | | | | | | [phone] | | | +--------+ + + + [...]
--- OUTSIDE RECORDS SUMMARY | ~2019-09-08 | XMS | Encounter Summary ---
Demographics + + + | Address | [address] | | | [place] [address] | + + + | Home Phone [...] | Author | [facility] | | | and [place] | + + + | Organization | [facility] | | | and [place] | + + + | Address | Unknown | + + + | Phone | Unavailable | + + + Support + + + + + | Name | Relationship | Address | Phone | + + + + + | [place] Tilley | ECON | [address] | | | | | [place], [place] | | | | | [address] | | + + + + + | Yina La | ECON | Unknown | | + + + + + | Yina Peterson | ECON | Unknown | | + + + + + | Leatha Casillas | ECON | Unknown | | + + + + + Care Team Providers + +------+ + | Care Viscera Washer Name | Role | Phone | + +------+ + PCP | Unavailable | + +------+ + Reason for Visit + + + | Reason | Comments | + + + | Follow-up | dialysis catheter removal | + + + Evaluate & Treat [...] | Surgery | kidney | DO [address] | [address] | | | | | disease, | Adrian, Jorden | [address] | | | | | stage V | [address] [place] | [place], | | | | | ([facility]) | [place] | [place] [address] | | | | | | [address] | Phone: | | | | | | Phone: | [phone] | | | | | | [phone] | Fax: | | | | | | Fax: | [phone] | | | | | | [phone] | | +--------+ + + + + + Encounter Details +--------+---------+ + + + | Date | Type | Department | Care Team | Description | +--------+---------+ + + + | 04/04/ | Office | [facility] | Santos Stephenson | Chronic kidney | | 2018 | Visit | SURGERY [address] | MD Kinga, FACS [address] | disease, stage V | | | | [place], [place] | [address] [facility] | (HCC) (Primary Dx) | | | | [address] | [place] [address] | | | | | [phone] | [phone] | | | | | | | [...] + + + | Blood Pressure | 140/64 | 04/04/2018 12:55 PM | | | | | PDT | | + + + + + | Pulse | 71 | 04/04/2018 12:55 PM | | | | | PDT | | + + + + + | Temperature | 36.5 C (97.7 F) | 04/04/2018 12:55 PM | | | | | PDT | | + + + + + | Respiratory Rate | 19 | 04/04/2018 12:55 PM | | | | | PDT | | + + + + + | Oxygen Saturation | 97% | 04/04/2018 12:55 PM | | | | | PDT | | + + + + + | Inhaled Oxygen | - | - | | | Concentration | | | | + + + + + | Weight | 76.2 kg (168 lb) | 04/04/2018 12:55 PM | | | | | PDT | | + + + + + | Height | 172.7 cm (5' 8") | 04/04/2018 12:55 PM | | | | | PDT | | + + + + + | Body Mass Index | 25.54 | 04/04/2018 12:55 PM | | | | | PDT [...] Progress Notes Santos Stephenson MD, FACS - 04/04/2018 1:00 PM PDTFormatting of this note might be diff erent from the original. Patient Identification: Estefani Tilley 1945 Is a 72 y.o. female , a patien t of Francisca Womack PA-C. Patient is here with alone. S: Date of surgery: 02/04/2018. Title of surgery: Hemodialysis tunneled catheter placem ent in RIGHT IJ by Dr. Heather Navarro. Date of surgery: 01/04/2018. Title of surgery: Creation of RIGHT AV Fistula, RIGHT transposition of basilic vein. Physician notes: Patient arrives today to follow up on her hemodialysis tunneled catheter placed in RIGHT I J (previous one fell out at home). She states they have successfully used her RIGHT AV Fist syeda 3 or more times, dialysis is going well. She would like to proceed with having her RIGHT IJ tunneled catheter removed. PAST MEDICAL HISTORY Past Medical History: Diagnosis [...] Placement; Surgeon: Nora Leo MD; Location : [facility] MAIN OR SHUNT PLACEMENT/INSERTION Right 02/04/2018 Procedure: INSERTION SHUNT HEMODIALYSIS W/ PERMACATH; Surgeon: Heather Navarro MD; L ocation: [facility] MAIN OR VEIN SURGERY Right 01/04/2018 Procedure: Right Transposed Basilic Vein to Proximal Radial Artery; Surgeon: Santos Stephenson MD, FACS; Location: [facility] MAIN OR Allergies Allergen Reactions Lisinopril Pt states she does not remember what was the reaction she had to lisinopril. I asked her if it gave her a cough and she said "I cant remember, maybe it made me sick to my stomach". Naproxen Medications: Outpatient Encounter Prescriptions as of 04/04/2018 Medication Sig Dispense Refill artificial tears (AKWA [...] times a week. (Patient taking differently: Inject 3,400 Units under the skin Three times a week.) 0 furosemide (LASIX) [...] facility-administered encounter medications on file as of 04/04/2018. Family History Problem Relation Age of Onset Diabetes Other grandfather Diabetes Other grandmother Cancer Sister Social History: She reports that she has never smoked. She has never used smokeless tobacco. She reports th at she does not drink alcohol or use drugs. Physical Assessment Vitals: 04/04/18 1255 BP: 140/64 Pulse: 71 Resp: 19 Temp: 36.5 C (97.7 F) TempSrc: Temporal SpO2: 97% Weight: 76.2 kg (168 lb) Height: 1.727 m (5' 8") Body mass index is 25.54 kg/m. PE: General Appearance: Alert, cooperative, no distress, appears stated age Skin: Warm and dry Chest wall: RIGHT tunneled catheter in place. Neurologic: Alert and oriented x3,Moving all 4 extremities. , Gait normal Procedure note Removal of tunnelled dialysis catheter: PROCEDURE: Removal of the tunnelled dialysis catheter was explained to patient including r isks and possible complications infection, bleeding, and retained cuff. The patient in supine position on the procedure table 1% Xylocaine with epinephrine was infiltated around dialysis catheter. After waiting 10 minutes the exit site of the catheter was dilated with straight mosquito. With the firm traction on the device I could bring the cuff down to where I could dissect around the cuff. With additional firm traction I was ab le to remove the device completely. The catheter in the cuff came out intact. Additional 5 pounds sandbag pressure was held over the exit site for 10 minutes. Assessment 1. Chronic kidney disease, stage V (HCC) Plan 1) S/P Removal Hemodialysis tunneled catheter RIGHT IJ Patient tolerated procedure well. Bandages placed and followup care instructions were gi tom to patient. She can shower tomorrow. Patient to follow with habilitation assistant and primary care. I will be available should future s urgical complications develop. I appreciate having been involved in the care of this patien t. Santos Stephenson MD, FACS Vascular and General Surgery documented i n this encounter Plan of Treatment Not on filedocumented as of this encounter Visit Diagnoses + + | Diagnosis | + + | Chronic kidney disease, stage V (HCC) - Primary Chronic kidney disease, Stage V | + + documented in this encounter
--- OUTSIDE RECORDS SUMMARY | ~2019-09-08 | XMS | Encounter Summary ---
Demographics + + + | Address | [address] | | | [place] [address] | + + + | Home Phone | | + + + | Preferred Language | Unknown | + + + | Marital Status | Single | + + + | Congregation Affiliation | Unknown | + + + | Race | Unknown | + + + | Ethnic Group | Unknown | + + + Author + + + | Author | [facility] | | | and [place] | + + + | Organization | [facility] | | | and [place] | + + + | Address | Unknown | + + + | Phone | Unavailable | + + + Support + + + + + | Name | Relationship | Address | Phone | + + + + + | India Tilley | ECON | [address] | | | | | [place], [place] | | | | | [address] | | + + + + + | Yina La | ECON | Unknown | | + + + + + | Yina Peterson | ECON | Unknown | | + + + + + | Leatha Casillas | ECON | Unknown | | + + + + + Care Team Providers + +------+ + | Care Hot Pond Operator Name | Role | Phone | [...] + | 01/06/ | Telephone | [facility] | Scott Koroma, | Insurance | | 2019 | | ORTHOPEDIC SURGERY | [address] | Authorization | | | | [address] [facility] | [place] | | | | | [place] | [address] | | | | | [address] | | | | | | [phone] | | | +--------+ + + + [...]
--- OUTSIDE RECORDS SUMMARY | ~2019-09-08 | XMS | Encounter Summary ---
Demographics + + + | Address | [address] | | | [place] [address] | + + + | Home Phone [...] | Author | [facility] | | | and [place] | + + + | Organization | [facility] | | | and [place] | + + + | Address | Unknown | + + + | Phone | Unavailable | + + + Support + + + + + | Name | Relationship | Address | Phone | + + + + + | India Tilley | ECON | [address] | | | | | [place], [place] | | | | | [address] | | + + + + + | Yina La | ECON | Unknown | | + + + + + | Yina Peterson | ECON | Unknown | | + + + + + | Leatha Casillas | ECON | Unknown | | + + + + + Care Team Providers + +------+ + | Care Manufacturing Tech Name | Role | Phone | + +------+ + PCP | Unavailable | + +------+ + Encounter Details +--------+ + + + + | Date | Type | Department | Care Team | Description | +--------+ + + + + | 02/26/ | Hospital | [facility] | Patricia, | | | 2006 - | Encounter | MED CTR CANCER | Venkatesh Forte MD [address] | | | | | [place] [address] | [facility] | | | 03/12/ | | [place], [place] | [place] [address] | | | 2006 | | [address] | [phone] | | | | | [phone] | | | +--------+ + + + [...]
--- OUTSIDE RECORDS SUMMARY | ~2019-09-08 | XMS | Encounter Summary ---
Demographics + + + | Address | [address] | | | [place] [address] | + + + | Home Phone [...] + + + | Author | [facility] | | | and [place] | + + + | Organization | [facility] | | | and [place] | + + + | Address | Unknown | + + + | Phone | Unavailable | + + + Support + + + + + | Name | Relationship | Address | Phone | + + + + + | India T[place]ley | ECON | [address] | | | | | [place], [place] | | | | | [address] | | + + + + + | Yina La | ECON | Unknown | | + + + + + | Yina Peterson | ECON | Unknown | | + + + + + | Leatha Casillas | ECON | Unknown | | + + + + + Care Team Providers + +------+ + | Care Towerman Name | Role | Phone | + [...] + + | 01/05/ | Office | [facility] | Scott Koroma, | Closed fracture of | | 2019 | Visit | ORTHOPEDIC SURGERY | MD [address] [facility] | neck of right femur, | | | | [address] | [place] | initial encounter | | | | [place], [place] | [address] | (HCC) (Primary Dx); | | | | [address] | | Right hip pain | | | | [phone] | | | +--------+---------+ + + + [...]
--- OUTSIDE RECORDS SUMMARY | ~2019-09-08 | XMS | Encounter Summary ---
Demographics + + + | Address | [address] | | | [place] [address] | + + + | Home Phone [...] | Author | [facility] | | | and [place] | + + + | Organization | [facility] | | | and [place] | + + + | Address | Unknown | + + + | Phone | Unavailable | + + + Support + + + + + | Name | Relationship | Address | Phone | + + + + + | India Tilley | ECON | [address] | | | | | [place], [place] | | | | | [address] | | + + + + + | Yina La | ECON | Unknown | | + + + + + | Yina Peterson | ECON | Unknown | | + + + + + | Leatha Casillas | ECON | Unknown | | + + + + + Care Team Providers + +------+ + | Care Rubber Grinder Name | Role | Phone | + +------+ + PCP | Unavailable | + +------+ + Encounter Details +--------+---------+ + + + | Date | Type | Department | Care Team | Description | +--------+---------+ + + + | 01/04/ | Surgery | [facility] | Santos Stephenson | Right Transposed | | 2018 | | MED CTR OR INTRA OP | MD Kinga, FACS [address] | Basilic Vein to | | | | [address] | [address] [place] | Proximal Radial | | | | [place], [place] | [place] [address] | Artery | | | | [address] | [phone] | | | | | [phone] | | | +--------+---------+ + + + [...] what medicines and drugsyou take. This includes fvbu-bre-mcr nter medicines, herbs, supplements, alcohol or other [...] ke ep you safe. Date Last Reviewed: 08/13/201619992057-6246 [employer]. [address] [place] [address]. All righ ts reserved. This information is not intended as a substitute for professional medical care. Always follow your healthcare professional's instructions. [facility] POST-OP INSTRUCTIONS: Arterio-Venous Fistula 1. [...] | | | | | PDT | ([facility]) (N18.5) | | + +--------+ + + [...] [address] | [place] | [phone] | | [facility] | | [address] | | | - LABORATORY | | [...] + | [facility] | [address] | [place] | [phone] | | [facility] | | [address] | | | - LABORATORY | | [...] [address] | [place] | [phone] | | [facility] | | [address] | | | - LABORATORY | | [...] [address] | [place] | [phone] | | [facility] | | [address] | | | - LABORATORY | | [...] [facility] | | | [place] | RATE,ESTIMATED | | MEDICAL | | | | mL/min/1.78f2Ucwd than | | CENTER - | | [...] [address] | [place] | [phone] | | [facility] | | [address] | | | - LABORATORY | | [...]
--- OUTSIDE RECORDS SUMMARY | ~2019-09-08 | XMS | Encounter Summary ---
Demographics + + + | Address | [address] | | | [place] [address] | + + + | Home Phone [...] Author | [facility] | | | and [place] | + + + | Organization | [facility] | | | and [place] | + + + | Address | Unknown | + + + | Phone | Unavailable | + + + Support + + + + + | Name | Relationship | Address | Phone | + + + + + | India Tilley | ECON | [address] | | | | | [place], [place] | | | | | [address] | | + + + + + | Yina La | ECON | Unknown | | + + + + + | Yina Peterson | ECON | Unknown | | + + + + + | Leatha Casillas | ECON | Unknown | | + + + + + Care Team Providers + +------+ + | Care Film Or Videotape Editor Name | Role | Phone | + +------+ + | DangeloRenato LAWNMOWER MECHANIC | PCP | | + +------+ + Reason for Visit + + + | Reason | Comments | + + + | Appointment | schedule | + + + Encounter Details +--------+ + + + + | Date | Type | Department | Care Team | Description | +--------+ + + + + | 06/27/ | Telephone | [facility] | Ta Melendez, | Appointment | | 2018 | | INTERVENTIONAL | MD Chidi Ibanez | (schedule) | | | | RADIOLOGY [address] | [address] | | | | | [address] | [place] [address] | | | | | [place], [place] | [phone] | | | | | [address] | | | | | | [phone] | | | +--------+ + + + [...]
--- OUTSIDE RECORDS SUMMARY | ~2019-09-08 | XMS | Encounter Summary ---
Demographics + + + | Address | [address] | | | [place] [address] | + + + | Home Phone [...] Author | [facility] | | | and [place] | + + + | Organization | [facility] | | | and [place] | + + + | Address | Unknown | + + + | Phone | Unavailable | + + + Support + + + + + | Name | Relationship | Address | Phone | + + + + + | India Tilley | ECON | [address] | | | | | [place], [place] | | | | | [address] | | + + + + + | Yina La | ECON | Unknown | | + + + + + | Yina Peterson | ECON | Unknown | | + + + + + | Leatha Casillas | ECON | Unknown | | + + + + + Care Team Providers + +------+ + | Care Light Cleaner Name | Role | Phone | + +------+ + PCP | Unavailable | + +------+ + Encounter Details +--------+ + + + + | Date | Type | Department | Care Team | Description | +--------+ + + + + | 02/28/ | Hospital | [facility] | | | | 2006 | Encounter | MED CTR XRAY [address] | | | | | | [address] | | | | | | [place] [address] | | | | | | [phone] | | | +--------+ + + + [...]
--- OUTSIDE RECORDS SUMMARY | ~2019-09-08 | XMS | Encounter Summary ---
Demographics + + + | Address | [address] | | | [place] [address] | + + + | Home Phone [...] + | Author | [facility] | | | and [place] | + + + | Organization | [facility] | | | and [place] | + + + | Address | Unknown | + + + | Phone | Unavailable | + + + Support + + + + + | Name | Relationship | Address | Phone | + + + + + | India Tilley | ECON | [address] | | | | | [place], [place] | | | | | [address] | | + + + + + | Yina La | ECON | Unknown | | + + + + + | Yina Peterson | ECON | Unknown | | + + + + + | Leatha Casillas | ECON | Unknown | | + + + + + Care Team Providers + +------+ + | Care Electronics Installer Name | Role | Phone | + +------+ + PCP | Unavailable | + +------+ + Encounter Details +--------+ + + + + | Date | Type | Department | Care Team | Description | +--------+ + + + + | 12/20/ | Hospital | [facility] | [facility], | | | 2008 - | Encounter | MED CTR CANCER | Venkatesh Forte MD [address] | | | | | [address] | [facility] | | | 01/10/ | | [place], [place] | [place] [address] | | | 2008 | | [address] | [phone] | | | | | [phone] | | | +--------+ + + + [...]
--- OUTSIDE RECORDS SUMMARY | ~2019-09-08 | XMS | Encounter Summary ---
Demographics + + + | Address | [address] | | | [place] [address] | + + + | Home Phone [...] | Author | [facility] | | | and Kamaljitana | + + + | Organization | [facility] | | | and [place] | + + + | Address | Unknown | + + + | Phone | Unavailable | + + + Support + + + + + | Name | Relationship | Address | Phone | + + + + + | India Tilley | ECON | [address] | | | | | [place], [place] | | | | | [address] | | + + + + + | Yina La | ECON | Unknown | | + + + + + | Yina Peterson | ECON | Unknown | | + + + + + | Leatha Casillas | ECON | Unknown | | + + + + + Care Team Providers + +------+ + | Care Research Program Intern Name | Role | Phone | [...] | | | | | site, | [place], [place] | TABITHA, [place]KTORIYA | | | | | unspecified | [phone] | [address] | | | | | type ([facility]) | Phone: | Phone: | | | | | | [phone] | [phone] | | | | | | Fax: | Fax: | | | | | | [phone] | [phone] | + + + + + + [...] + + | 03/24/ | Hospital | [facility] | Erlinda Simon, | Osteomyelitis, | | 2019 - | Encounter | [facility] | MD [address] | unspecified site, | | | | NEPHROLOGY [address], [address] | unspecified type | | 03/31/ | | [address] [place] | [place] [address] | ([facility]) (Primary Dx); | | 2019 | | [id number] | [phone] | Discitis of thoracic | | | | [phone] | | region; Other | | | | | Katey Hill MD | secondary | | | | | [address] | osteoarthritis of | | | | | [address]TH FLO[address] [place], | multiple sites; ESRD | | | | | [place] [address] | (end stage renal | | | | | [phone] | disease) on dialysis | | | | | | ([facility]); Essential | | | | | Michelle Lopez, | hypertension; ESRD | | | | | DO [address] | (end stage renal | | | | | [address] [place], | disease) ([facility]); Type | | | | | [place] [address] | 2 diabetes mellitus | | | | | [phone] | with stage 4 | | | | | | chronic kidney | | | | | | disease, with | | | | | | long-term current | | | | | | use of insulin ([facility]) | +--------+ + + + + Social [...] completion of IV abx Follow Up Appointments: [facility] [address] [facility] [address] [facility] [address] [place] [id number] [facility] [address] [facility] [address] Discharge Disposition: Home with [facility]ants This Admission: ID, Nephrology Hospital Course: 73-year-old female with history of ESRD on hemodialysis, hypertension, type 2 diabetes, hyp othyroidism, chronic anemia, hyperlipidemia with a history of stroke transferred from [facility] for evaluation of T11-T12 lesion noted on [...] to go to SNF ([facility] in [place], [place] - of which has accepted her [...] dialysis days after dialysis Osteomyelitis/Discitis of T11, [id number] -MRI spine 03/23/19: "mild paravertebral soft tissue [...] dialysis patient - has OP clinic in [place] already Macrocytic anemia likely secondary to-likely anemia [...] Value Units Date/Time Culture, Aerobic + Anaerobic [[id number]] Collected: 03/24/191513 Order Status: Completed Lab Status: Final result Updated: 03/29/19717 Specimen: Body Fluid from Vertebrae, Thoracic FINAL REPORT -- No Growth No anaerobes isolated Gram Stain Few Neutrophils No squamous epithelial cells seen No organisms seen Comment: Performed by [facility] [address] [place] [address] Gram Stain [[id number]] Collected: 03/24/191513 Order Status: Canceled Lab Status: No result Updated: 03/24/19 1515 Specimen: Body Fluid from Vertebrae, Thoracic Culture, AFB Smear [[id number]] Collected: 03/24/19 1514 Order Status: Completed Lab Status: Preliminary result Updated: 03/25/19 1054 Specimen: Body Fluid from Vertebrae, Thoracic AFB Smear Result No Acid Fast Bacilli Seen Comment: Performed by [facility] [address] [place] [address] Culture, Fungus, Smear [[id number]] Collected: 03/24/19 1514 Order Status: Completed Lab Status: Preliminary result Updated: 03/25/19 1039 Specimen: Body Fluid from Vertebrae, Thoracic CALCOFLUOR No fungal elements seen Comment: Performed by [facility] [address] [place] [place] [address] Culture, Blood [[id number]] Collected: 03/23/19 2333 Order Status: Completed Lab Status: Final result Updated: 03/28/19 2352 Specimen: Blood Culture No growth after 5 days incubation. Culture, Blood [[id number]] Collected: 03/23/19 2255 Order Status: Completed Lab [...] this chart may have been created with [employer] voice recognition software. Occasi onal wrong-word [...] | | | | | ([facility]), Right hip | | | | | [...] 03/31/2019 5:42 PM PDTPatient left with family, [facility] supplies and i nstructions received before discharge and RX's filled at outpt pharmacy. VSS, ambulating wit h SBA, A&O x4, accepting of discharge. Dialysis completed this AM. Pain controlled with q4 o xy, LD 1400. Home health will f/u tomorrow. AVS reviewed and sent with patient, verbalized u nderstanding. Merry Hess, MANAGER CORE - 03/31/2019 11:05 AM PDTSOCIAL WORK PLAN: Home with [facility] NEXT STEPS: 1. Pt to follow up with [facility] 2. [facility] [place] INTERVENTION: SW spoke with [facility], pt has a $2.50 out of pocket cost weekly, pt is agreeable to pay for this. Therefore pt will dc today with [facility]. ROBIN provided [facility] with hard script for IV abx. ROBIN faxed over HH order to [facility], ROBIN faxed over IV vanco script to [facility]. [facility] notified of pt's dc home. notified. [facility] to meet with pt later this afternoon for teach. SW provided pt with 3 gas cards to assist with transportation. No further dc needs identified. SW received call from [facility] clinic that they cannot provide IV Vanco as Vanco h as not been consigned by [facility] that [place] privileges in [place]. IV Vanco will now be done b y Candie, [employer] faxed over hard script to Candie. They will have both IV Abx ready and will teach pt shortly. No further dc needs identified. CONTACTS: Yina La: sister India Tilley: sister [place] Transportation: [place] Medicaid Transportation fax: [phone] [facility]: [phone] fax: [phone] [facility] [phone] [facility]: [phone] [facility]: [phone] [facility] FAX: [phone] aMichelle bell DO - 03/31/2019 10:12 AM PDT Patient: Estefani Tilley Date of : 1945 Admit Date: 03/24/2019 Date of Service: 03/31/2019 PCP: Francisca Womack PA-C Hospital Day: Hospital Day: 8 Hospital Course: 73-year-old female with history of ESRD on hemodialysis, hypertension, type 2 diabetes, hyp othyroidism, chronic anemia, hyperlipidemia with a history of stroke transferred from [facility] for evaluation of T11-T12 lesion noted on [...] had planned to go to [facility] [place] - of which has accepted her and [...] dialysis patient - has OP clinic in [place] already Macrocytic anemia likely secondary to-likely anemia [...] hoping to arrange home IV antibiotics through [facility]. Awaiting to see if insurance will cover [...] mg/dL Final Comment: Performed by [facility] [address] [place] [address] 03/30/2019 21:14 200 (H) 65 - 99 mg/dL Final Comment: Performed by [facility] [address] [place] [address] 03/30/2019 17:46 111 (H) 65 - 99 mg/dL Final Comment: Performed by [facility] [address] [place] [address] 12/09/2018 18:05 113 (H) 70 - 109 [...] this chart may have been created with [employer] voice recognition software. Occasi onal wrong-word or sound-alike substitutions may have occurred due to the inherent mckeon itations of voice recognition software. Please read the chart carefully and recognize, using context, where these substitutions have occurred Jesus Wade MD - 03/31/2019 8:26 AM PDT . Infectious Diseases Progress Note Pt. Name/Age/: Estefani Tony Tilley 73 y.o. 1945 Med. Record Number: [id number] Date of admission: 03/24/2019 Patient admitted with [...] Electronically signed by: Jesus Whitney, 03/31/2019 8:[address] [facility] Robb Phillips PharmD - 03/31/2019 7:25 AM [...] - 03/30/2019 9:45 PM PDT [facility] INPATIENT ROUNDING NOTE Date of Service: 03/30/2019 Rounding Physician: Randy Corrigan MD Patient Name: Estefani Tilley : 1945 Medical Record: [id number] Hospital Summary: Estefani Tilley is a 73 y.o. female with a PMHx of ESRD, HTN, Dm type 2, hypothyroidism, HLd, CVA who is under the care of Dr Muñoz at [facility] who dialyzes MWF admitted with [...] Trace Corrigan MD, 03/30/2019, 21:45 etNan wilkes, MANAGER CORE - 03/30/2019 2:34 PM PDT SOCIAL WORK D/C PLAN:DC home with [facility] providing IV-ABX and [facility] providing picc care and lab draws vs [facility] NEXT STEPS: -SW will need to follow up with CANDIE regarding providing IV-ABX to pt. -SW will need to follow up with [facility] regarding providing picc care and lab draws. -SW will need to follow up with [facility] regarding having pt receive vanco do se while at dialysis center if pt is to go home with IV-ABX -SW will need to follow up with [facility] if pt is unable to go home with IV-ABX rega ridng pt's DC -SW will need to fax SNF orders, scripts and PASRR to [facility] if pt is unable to go home -SW will need to provide gas cards to pt's family for transportation home. INTERVENTION:SW spoke with pt regarding acceptance to [facility]. Pt is now wanting to go home with IV-ABX. SW spoke with [facility]. They go out to [place], [place] and have openings for nursing care. Referral faxed to [facility]. Pt is amenable to using [facility] for IV-ABX. SW spoke with CANDIE martinez who will run pt's be nefits to see if she can DC home with IV-ABX. Pt states that [facility] can provide teach to her son to help administer IV-ABX. SW left message for [facility] to see if they can provide vanco dose to pt at [facility] on Wednesday, Wednesday and Wednesday if pt is able to go home. Pt states that she does dialysis on Wednesday, Wednesday and Wednesday from 12:00-4:00. SW received phone call from [facility]. They have accepted pt for admission if [...] if pt is going to go to [facility]. ASSESSMENT/CHART REVIEW:73 yr old femalewith a history of ESRD on hemodialysis, hypertens ion, type 2 diabetes, hypothyroidism,chronic anemia,hyperlipidemia, hx of stroke [facility] noted on MRI concerning fo r osteomyelitis. SW met with pt's sister, Yina, and her cousin, Keri, who were waiting in pt's room while s he was in dialysis. SW will need to follow up with pt re: d/c planning. Pt's sister and cousin related that pt mostly lives at Yina's house outside [place], [place], but does not like to be tied down because she enjoys attending [place] festivals and many events. She does at [facility] weekly. Pt has a vehicle and is very independent. D/C TRANSPORT:Pt can be transported home or to [facility] via family in a private car. They will need gas cards to help pay for transportation. BARRIERS TO D/C:none CONTACTS: Yina aL: sister India Tilley: sister [place] Transportation: [place] Medicaid Transportation fax: [phone] [facility]: [phone] fax: [phone] [facility] [phone] [facility]: [phone] [facility]: [phone] [facility] FAX: [phone] Nan Cheney MSW - 03/30/2019 12:57 PM PDTSOCIAL WORK D/C PLAN:[facility]: [facility] NEXT STEPS:Await bed availability INTERVENTION: ROBIN called and left message for Mell at [facility] regarding if they are willing to accept pt and to discuss transportation to and from dialysis. SW also called and left message for [place] Medicaid transportation regarding if they can transp ort pt to and from dialysis upon DC. Pt states that she goes to [facility] dialys is in [place], [place] on Wed, Wed, and Fridays from 12:00-4:00 pm. SW left message with [facility] dialysis regarding if there was any way that they may also be able to help with transportation to and from dialysis while pt is in rehab and to ensure that pt still has her chair time scheduled. [facility] is only open M on, Wednesday and Wednesday. ASSESSMENT/CHART REVIEW:73 yr old femalewith a history of ESRD on hemodialysis, hypertens ion, type 2 diabetes, hypothyroidism,chronic anemia,hyperlipidemia, hx of stroke transfe rred from [facility] evaluation of T11-T12 lesion noted on MRI concerning fo r osteomyelitis. SW met with pt's sister, Yina, and her cousin, Keri, who were waiting in pt's room while s he was in dialysis. SW will need to follow up with pt re: d/c planning. Pt's sister and cousin related that pt mostly lives at Yina's house outside [place], [place], but does not like to be tied down because she enjoys attending [place] festivals and many events. She does at [facility] dialysis weekly. Pt has a vehicle and is very independent. D/C TRANSPORT:tbd BARRIERS TO D/C:none CONTACTS: Yina La: sister India Tilley: sister [place] Transportation[place] Transportation fax: [phone] [facility]: [phone] fax: [phone] [facility] [phone] [facility]: [phone] signed by JENNIFER Xavier at 03/30 1:09 [...] transferred from [facility] for evaluation of T11-T12 lesion noted on [...] dialysis patient - has OP clinic in [place] already ---> will need SW to help [...] SNF - awaiting to hear back from [facility], in [place], [place] regarding possible acceptance there. Medically ready [...] Single Lumen 03/24/19 2143 Left Lateral Forearm zwut-ule-tkjccq daniel ter system 20 gauge;1 1/4 in [...] mg/dL Final Comment: Performed by [facility] [address] [place] [address] 03/29/2019 21:09 157 (H) 65 - 99 mg/dL Final Comment: Performed by [facility] [address] [place] [address] 03/29/2019 18:50 91 65 - 99 mg/dL Final Comment: Performed by [facility] [address] [place] [address] 12/09/2018 18:05 113 (H) 70 - 109 [...] this chart may have been created with [employer] voice recognition software. Occasi onal wrong-word or sound-alike substitutions may have occurred due to the inherent mckeon itations of voice recognition software. Please read the chart carefully and recognize, using context, where these substitutions have occurred esus Whitney MD - 03/30/2019 7:15 AM PDT . Infectious Diseases Progress Note Pt. Name/Age/: Estefani Jimenez Jarek 73 y.o. 1945 Med. Record Number: [id number] Date of admission: 03/24/2019 Patient admitted with [...] Electronically signed by: Jesus Whitney, 03/30/2019 7:[address] [facility] Mary Wade RN - 03/30/2019 [...] intention has depression wishful of Monitoring Requirements [facility] Suicide Policy [facility] Suicide Risk/Telesitter Screening Utilizing this rating scale, [...] 03/29/2019 4:18 PM PDTSOCIAL WORK D/C PLAN:SNF: [facility] NEXT STEPS:Await bed availability INTERVENTION: SW called and spoke with admissions person at [facility], they are still discussing pt's case. They [...] anemia,hyperlipidemia, hx of stroke [facility] lesion noted on MRI concerning fo r osteomyelitis. SW met with pt's sister, Yina, and her cousin, Keri, who were waiting in pt's room while s he was in dialysis. SW will need to follow up with pt re: d/c planning. Pt's sister and cousin related that pt mostly lives at Yina's house outside [place], [place], but does not like to be tied down because she enjoys attending [place] festivals and many events. She does at [facility] weekly. Pt has a vehicle and is very independent. D/C TRANSPORT:tbd BARRIERS TO D/C:none CONTACTS: Yina La: sister India Tilley: sister [place] Medicaid Transportation: [facility]: [phone] fax: [phone] [facility] [phone] signed by JENNIFER Contreras at 03/29/2019 4:20 PM PDTHsu, Randy Nunez MD - 03/29/2019 12:32 PM PDT [facility] INPATIENT ROUNDING NOTE Date of Service: 03/29/2019 Rounding Physician: Randy Corrigan MD Patient Name: Etsefani Tilley : 1945 Medical Record: [id number] Hospital Summary: Estefani Tilley is a 73 y.o. female with a PMHx of ESRD, HTN, Dm type 2, hypothyroidism, HLd, CVA who is under the care of Dr Muñoz at [facility] who dialyzes MWF admitted with [...] transferred from [facility] for evaluation of T11-T12 lesion noted on [...] need three times weekly dialysis while at [facility] as well. SW to help determine transportation [...] dialysis patient - has OP clinic in [place] already ---> will need SW to help [...] SNF - awaiting to hear back from [facility], in [place], [place] regarding possible acceptance there. Could possibly [...] Single Lumen 03/24/19 2143 Left Lateral Forearm nntz-bjo-rnsxij daniel ter system 20 gauge;1 /4 in [...] mg/dL Final Comment: Performed by [facility] [address] [place] [address] 03/28/2019 21:06 144 (H) 65 - 99 mg/dL Final Comment: Performed by [facility] [address] [place] [address] 03/28/2019 11:22 119 (H) 65 - 99 mg/dL Final Comment: Performed by [facility] [address] [place] [place] [address] 12/09/2018 18:05 113 (H) 70 - 109 [...] this chart may have been created with [employer] voice recognition software. Occasi onal wrong-word [...] Jarek 73 y.o. 1945 Med. Record Number: [id number] Date of admission: 03/24/2019 Patient admitted with [...] Electronically signed by: Jesus Whitney, 03/29/2019 7:[address] [facility] zech, Carolina Restrepo RN - 03/28/2019 7:08 PM [id number] - Report called to Sanjuanita GONZALEZ. Pt's belongings . I pad and I phone w/ chargers as well as pt's purse, and shoes, and shirt and pants all sent with her to [address] [place] [address]. Pt had been sitting up eating dinner. [...] for time spent with her. Noti fied [address] [place] [address] RN of pt's recent loss. Transferred at [...] transferred from [facility] for evaluation of T11-T12 lesion noted on [...] Single Lumen 03/24/19 2143 Left Lateral Forearm dhfl-avz-zwsivi daniel ter system 20 gauge;1 / in [...] - 99 mg/dL Final Comment: Performed by [place] [address] [facility] [place] [address] 03/28/2019 07:09 75 65 - 99 mg/dL Final Comment: Performed by [place] [address] [facility] [place] [address] 03/27/2019 20:38 109 (H) 65 - 99 mg/dL Final Comment: Performed by [place] [address] [facility] [place] [address] 12/09/2018 18:05 113 (H) 70 - 109 [...] this chart may have been created with [employer] voice recognition software. Occasi onal wrong-word or sound-alike substitutions may have occurred due to the inherent mckeon itations of voice recognition software. Please read the chart carefully and recognize, using context, where these substitutions have occurred Cordell Mcgarry LICSW - 03/28/2019 2:57 PM PDTSOCIAL WORK D/C PLAN: SNF: [facility] NEXT STEPS: Await bed availability INTERVENTION: On-going dc planning. Rec'd update from [facility]. They confirm they have r ec'd clinical notes and are currently reviewing. SW will follow. ASSESSMENT/CHART REVIEW:73 yr old femalewith a history of ESRD on hemodialysis, hypertens ion, type 2 diabetes, hypothyroidism,chronic anemia,hyperlipidemia, hx of stroke [facility] lesion noted on MRI concerning fo r osteomyelitis. SW met with pt's sister, Yina, and her cousin, Keri, who were waiting in pt's room while s he was in dialysis. SW will need to follow up with pt re: d/c planning. Pt's sister and co in related that pt mostly lives at Yina's house outside [place], [place], but does not like to be tied down because she enjoys attending [place] festivals and many events. She does atten d dialysis weekly. Pt has a vehicle and is very independent. D/C TRANSPORT: tbd BARRIERS TO D/C: none CONTACTS: Yina La: sister India Tilley: sister [facility]: [phone] fax: [phone] [facility] [phone] Mario Alberto Gonzales MD - 03/28/2019 7:34 AM PDTFormatting of this note might be different from the maynor rollins Infectious Diseases Progress Note Pt. Name/Age/: Estefani Tilley 73 y.o. 1945 Med. Record Number: [id number] Date of admission: 03/24/2019 Patient admitted with [...] Electronically signed by: Carlos Jansen, 03/28/2019 7:[address] [facility] Katey Solis MD - 03/27/2019 [...] transferred from [facility] for evaluation of T11-T12 lesion noted on [...] Single Lumen 03/24/19 2143 Left Lateral Forearm agmm-utj-qiftyk daniel ter system 20 gauge;1 1/4 in [...] mg/dL Final Comment: Performed by [facility] [address] [place] [address] 03/27/2019 13:58 82 65 - 99 mg/dL Final Comment: Performed by [facility] [address] [facility] [place] [address] 03/27/2019 06:39 83 65 - 99 mg/dL Final Comment: Performed by [facility] [address] [facility] [place] [address] 12/09/2018 18:05 113 (H) 70 - 109 [...] this chart may have been created with [employer] voice recognition software. Occasi onal wrong-word or sound-alike substitutions may have occurred due to the inherent mckeon itations of voice recognition software. Please read the chart carefully and recognize, using context, where these substitutions have occurred Darlin Mcgarry LICSW - 03/27/2019 3:17 PM PDTSOCIAL WORK D/C PLAN: SNF: [facility] NEXT STEPS: Await bed availability INTERVENTION: Rec'd call from Emili at [facility]. She states the contracted f acility near pt's home is [facility]. Spoke with pt and with sister India. Referral and (-) Pasrr sent to [facility]. Copy of Pasrr placed in light chart with request to file into jos rds. SW will follow. ASSESSMENT/CHART REVIEW:73 yr old femalewith a history of ESRD on hemodialysis, hypertens ion, type 2 diabetes, hypothyroidism,chronic anemia,hyperlipidemia, hx of stroke [facility] lesion noted on MRI concerning fo r osteomyelitis. SW met with pt's sister, Yina, and her cousin, Keri, who were waiting in pt's room while s he was in dialysis. SW will need to follow up with pt re: d/c planning. Pt's sister and co usin related that pt mostly lives at Yina's house outside [place], but does not like to be tied down because she enjoys attending [place] and many events. She does atten d dialysis weekly. Pt has a vehicle and is very independent. D/C TRANSPORT: tbd BARRIERS TO D/C: none CONTACTS: Yina La: sister India Tilley: sister [facility]: [phone] fax: [phone] [place] [phone] Gregg Mcgarry [facility] - 03/27/2019 2:17 PM PDTFormatting of this note might be different from jerald posadas original. SOCIAL WORK D/C PLAN: SNF NEXT STEPS: SW to follow up with pt regarding SNF preference INTERVENTION: On-going dc planning, chart reviewed and met with pt. Discussed need of superintendent container terminal IV abx, Discussed options. Provided list of [...] pt mostly lives at Yina's house outside [place], but does not like to be tied down because she enjoys [place] and many events. She does atten d dialysis weekly. Pt has a vehicle and is very independent. ASSESSMENT/CHART REVIEW:73 yr old femalewith a history of ESRD on hemodialysis, hypertens ion, type 2 diabetes, hypothyroidism,chronic anemia,hyperlipidemia, hx of stroke [facility] noted on MRI concerning fo r osteomyelitis. D/C TRANSPORT: tbd BARRIERS TO D/C: none CONTACTS: Yina La Sister [phone] India Tilley Sister [phone] Irish Cadet, Cement Side Laster - 03/27/2019 1:33 PM PDTFormatting of this [...] mg/dL (H)). Lab Results Component Value Date/Time [facility] 17.7 03/27/2019 05:12 I/O last 3 completed shifts: In: 360 [P.O.:360] Out: 1 [Urine:1] I/O this shift: In: - Out: 2000 Micro/Cultures: BCx - NGTD, BiopsyCx - NGTD Per P&T-approved Vancomycin Protocol Electronically signed by: Aimee Carroll, Cement Side Laster 03/27/2019 13:33Electronically si gned by Ray Joel, PharmD at 03/27/2019 2:04 PM PDT Associated attestation - Ray Joel, PharmD - 03/27/2019 2:04 PM PDTI reviewed and agr ee with the assessment and plan. Ray Joel, PharmD 03/27/2019 14:04 Randy Corrigan MD - 03/27/2019 10:52 AM PDT [facility] INPATIENT ROUNDING NOTE Date of Service: 03/27/2019 Rounding Physician: Randy Corrigan MD Patient Name: Estefani Tilley : 1945 Medical Record: [id number] Hospital Summary: Estefani Tilley is a 73 y.o. female with a PMHx of ESRD, HTN, Dm type 2, hypothyroidism, HLd, CVA who is under the care of Dr Muñoz at [facility] who dialyzes MWF admitted with [...] Tilley 73 y.o. 1945 Med. Record Number: [id number] Date of admission: 03/24/2019 Patient admitted with [...] Electronically signed by: Carlos Jansen, 03/27/2019 7:[address] [facility] Katey Solis MD - 03/26/2019 [...] transferred from [facility] [place] for evaluation of T11-T12 lesion noted on [...] Single Lumen 03/24/19 2143 Left Lateral Forearm yzlk-cuo-sllaeg daniel ter system 20 gauge;1 1/4 in [...] mg/dL Final Comment: Performed by [facility] [address] [facility] [place] [address] 03/26/2019 06:49 116 (H) 65 - 99 mg/dL Final Comment: Performed by [facility] [address] [facility] [place] [address] 03/25/2019 20:37 110 (H) 65 - 99 mg/dL Final Comment: Performed by [facility] [address] [place] [address] 12/09/2018 18:05 113 (H) 70 - 109 [...] this chart may have been created with [employer] voice recognition software. Occasi onal wrong-word [...] Vancomycin Protocol Electronically signed by: Jose Menard, Cement Side Laster 03/26/2019 10:52 Hsu, Randy Nunez MD - 03/26/2019 1 0:38 AM PDT [facility] INPATIENT ROUNDING NOTE Date of Service: 03/26/2019 Rounding Physician: Randy Corrigan MD Patient Name: Estefani Tilley : 1945 Medical Record: [id number] Hospital Summary: Estefani Tilley is a 73 y.o. female with a PMHx of ESRD, HTN, Dm type 2, hypothyroidism, HLd, CVA who is under the care of Dr Muñoz at [facility] who dialyzes MWF admitted with possible osteo disccitis t11/t12 ASSESSMENT AND PLAN 1. ESRD/HD dependent Access is LUE AVF working well No indications for HD today Usually dialyzes MWF at [facility] Hd tommorow 2. Anemia Hg [...] Tilley 73 y.o. 1945 Med. Record Number: [id number] Date of admission: 03/24/2019 Patient admitted with [...] Electronically signed by: Carlos Jansen, 03/26/2019 8:[address] [facility] Katey Solis MD - 03/25/2019 [...] transferred from [facility] [place] for evaluation of T11-T12 lesion noted on [...] Peripheral IV Line - Single Lumen 03/24/19 8135 Left Lateral Forearm cizp-sox-nxdwpk daniel ter system 20 gauge;1 1/4 in [...] mg/dL Final Comment: Performed by [facility] [address] [place] [address] 03/25/2019 06:52 107 (H) 65 - 99 mg/dL Final Comment: Performed by [facility] [address] [place] [address] 03/24/2019 20:11 112 (H) 65 - 99 mg/dL Final Comment: Performed by [facility] [address] [place] [address] 12/09/2018 18:05 113 (H) 70 - 109 [...] this chart may have been created with [employer] voice recognition software. Occasi onal wrong-word or sound-alike substitutions may have occurred due to the inherent mckeon itations of voice recognition software. Please read the chart carefully and recognize, using context, where these substitutions have occurred su, Randy Nunez MD - 0 03/25/2019 1:47 PM PDT [facility] INPATIENT ROUNDING NOTE Date of Service: 03/25/2019 Rounding Physician: Randy Corirgan MD Patient Name: Estefani Tilley : 1945 Medical Record: [id number] Hospital Summary: Estefani Tilley is a 73 y.o. female with a PMHx of ESRD, HTN, Dm type 2, hypothyroidism, HLd, CVA who is under the care of Dr Muñoz at [facility] who dialyzes MWF admitted with possible osteo disccitis t11/t12 ASSESSMENT AND PLAN 1. ESRD/HD dependent Access is LUE AVF working well No indications for HD today Usually dialyzes MWF at [facility] She is below her EDW [...] Trace Corrigan MD, 03/25/2019, 13:47 etNan wilkes MANAGER CORE - 03/25/2019 10:49 AM PDT SOCIAL WORK [...] pt mostly lives at Yina's house outside [place], but does not like to be tied down because she enjoys attending [place] festivals and many events. She does atten d dialysis weekly. Pt has a vehicle and is very independent. ASSESSMENT/CHART REVIEW:73 yr old femalewith a history of ESRD on hemodialysis, hypertens ion, type 2 diabetes, hypothyroidism,chronic anemia,hyperlipidemia, hx of stroke [facility]-T12 lesion noted on MRI concerning fo r osteomyelitis. D/C TRANSPORT: tbd BARRIERS TO D/C: none CONTACTS: Yina La Sister [phone] India Tilley Sister [phone] Carlos Gonzales M D - 03/25/2019 8:34 AM PDT Infectious Diseases Progress Note Pt. Name/Age/: Estefani Tilley 73 y.o. 1945 Med. Record Number: [id number] Date of admission: 03/24/2019 Patient admitted with [...] Electronically signed by: Carlos Jansen, 03/25/2019 8:[address] [facility] Jose Gamez, Cement Side Laster - 03/24/2019 10:46 PM PDTFormatting of this note might be different from the origin hi. Pharmacy Progress Note VANCOMYCIN PER PHARMACY PROTOCOL: [...] Vancomycin Protocol Electronically signed by: Jose Menard, Cement Side Laster 03/24/2019 22:46 ladys [place] MSW - 9 [...] pt mostly lives at Yina's house outside [place], but do es not like to be tied down because she enjoys attending [place] festivals and many events. She does attend dialysis weekly. Pt has a vehicle and is very independent. ASSESSMENT/CHART REVIEW:73 yr old female with a history of ESRD on hemodialysis, hypertensi on, type 2 diabetes, hypothyroidism, chronic anemia, hyperlipidemia, hx of stroke transferre d from [facility] for evaluation of T11-T12 lesion noted on MRI concerning for ost eomyelitis. D/C TRANSPORT: tbd BARRIERS TO D/C: none CONTACTS: Yina La Sister [phone] India Tilley Sister [phone] atey Hill MD - 03/24/2019 3:53 PM PDTPatient seen and examined. Chart reviewed. Briefly, 73-year-old female with history of ESRD on hemodialysis, hypertension, type 2 diab etes, hypothyroidism, chronic anemia, hyperlipidemia with a history of stroke transferred fr [facility] [place] for evaluation of T11-T12 lesion noted on [...] not have any p raza, consider antidepressants. 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 2. Target Trough: 15-20 mcg/ml 3. [...] Procedure Component Value Units Date/Time Culture, Blood [[id number]] Collected: 03/23/192332 Order Status: Sent Lab Status: In process Updated: 03/23/192348 Specimen: Blood Culture, Blood [[id number]] Collected: 03/23/192254 Order Status: Sent Lab Status: [...] PROVIDEJOSE AE | | | POC | [facility] [address], | | SACRED | | | | [place] [address] | | HEART | | | |Performed by [facility] [address], [place], [place] | | MEDICAL | | | [...] SACRED | [address] | [place] | | | [facility] [...] | | | POC | [facility] [address], | | SACRED | | | | [place] [address] | | HEART | | | |Performed by [facility] [address], [place] [address] | | MEDICAL | | | | [...] + | JIMRENUKA LIZ | [address] | [place] [address] | | | [facility] | | | | | YANY [...] LABORATORY | | | | [facility] [address], | | [place] | | | | [place] [address] | | | | + + + + + + + + | Specimen | + + | Blood specimen | | (specimen) | + + + + + + + | Performing | Address | City/State/Zipcode | Phone Number | | Organization | | | | + + + + + | [facility] | [address] | [place] [address] | | | [facility] | | | | | LABORATORY [...] | | Immature | by [facility] [address], | K/uL | SACRED | | | Granulocyte | [place] [address] | | HEART | | | s |Performed by [facility] [address], [place] [address] | | MEDICA L | | | [...] + + | [facility] | [address] | [place] [address] | | | [facility] | | | | | LABORATORY [...] | | | | | [facility] [address], | | | | | | [place] [address] | | | | + + + + + + + + | Specimen | + + | Blood specimen | | (specimen) | + + + + + + + | Performing | Address | City/State/Zipcode | Phone Number | | Organization | | | | + + + + + | BETH LIZ | [address] | [place] [address] | | | [facility] | | | | | LABORATORY [...] | POC | Performed by [facility] [address] | | SACRED | | | | [address] [place] | | HEART | | | | [address] | | MEDICAL | | | | [...] + | [facility] AE [facility] | [address] | [place] [address] | | | [facility] | | | | | LABORATORY [...] | POC | Performed by [facility] [address] | | SACRED | | | | [address], [place] | | HEART | | | | [address] | | MEDICAL | | | | [...] + | BETH LIZ | [address] | [place] [address] | | | [facility] | | | | | LABORATORY [...] | POC | Performed by [facility] [address] | | SACRED | | | | [address] [place] | | HEART | | | | [address] | | MEDICAL | | | | [...] + + | RIMAE [facility] | [address] | [place] [address] | | | [facility] | | | | | LABORATORY [...] | POC | Performed by [facility] [address] | | SACRED | | | | [address], [place] | | HEART | | | | [address] | | MEDICAL | | | | [...] + | BETH LIZ | [address] | [place] [address] | | | [facility] | | | | | LABORATORY [...] PROVIDE NCE | | | | by [facility] [address], | | SACRED | | | | [place] [address] | | HEART | | | |Performed by [facility] [address], [place] [address] | | MEDICAL | | | | [...] + | BETH LIZ | [address] | [place] [address] | | | [facility] | | | | | LABORATORY [...] | | | | by [facility] [address], | | SACRED | | | | [place] [address] | | HEART | | | |Performed by [facility] [address], [place] [address] | | MEDICAL | | | | [...] + | [facility] | [address] | [place] [address] | | | [facility] | [...] LABORATORY | | | | [facility] [address], | | [place] | | | | [place] [address] | | | | + + + + + + + + | Specimen | + + | Blood specimen | | (specimen) | + + + + + + + | Performing | Address | City/State/Zipcode | Phone Number | | Organization | | | | + + + + + | BETH [facility]Z | [address] | [place] [address] | | | [facility] | | | | | LABORATORY [...] ENCE | | | Counted | by [place] [address], | | SACRED | | | | [place] [address] | | HEART | | | |Performed by [facility] [address], [place] [address] | | MEDICA L | | | [...] [address] | [place] [address] | | | [facility] | | | | | LABORATORY [...] | POC | Performed by [facility] [address] | | SACRED | | | | [address], [place] | | HEART | | | | [address] | | MEDICAL | | | | [...] [address] | [place] [address] | | | HEART [facility] | | | | | [...] | | | POC | [facility] [address], | | SACRED | | | | [place] [address] | | HEART | | | |Performed by [facility] [address], [place] [address] | | MEDICAL | | | | [...] + + | JIMRENUKA LIZ | [address] | [place] [address] | | | [facility] | | | | | LABORATORY [...] | POC | Performed by [facility] [address] | | SACRED | | | | [address] [place] | | HEART | | | | [address] | | MEDICAL | | | | [...] + + | [facility] | [address] | [place] | | | [facility] [...] | | | POC | [facility] [address], | | SACRED | | | | [place] | | HEART | | | |Performed by [facility] [address], [place] | | MEDICAL | | | [...] + | BETH LIZ | [address] | [place] [address] | | | [facility] | | | | | LABORATORY [...] | | | | | [facility] [address], | | | | | | [place] [address] | | | | + + + + + + + + | Specimen | + + | Blood specimen | | (specimen) | + + + + + + + | Performing | Address | City/State/Zipcode | Phone Number | | Organization | | | | + + + + + | BETH LIZ | [address] | [place] [address] | | | [facility] | | | | | LABORATORY [...] ENCE | | | Counted | by [place] [address], | | SACRED | | | | [place] [address] | | HEART | | | |Performed by [facility] [address], [place] [address] | | MEDICA L | | | [...] + | JIMJOSE ADora LIZ | [address] | [place] [address] | | | [facility] | | | | | LABORATORY [...] PROVIDEN CE | | | | by [facility] [address], | | SACRED | | | | [place] | | HEART | | | |Performed by [facility] [address], [place] | | MEDICAL | | | [...] + | [facility] | [address] | [place] | | | [facility]ENTER [...] LABORATORY | | | | [facility] [address] [place], | | C[place] | | | | [place] [address] | | | | + + + + + + + + | Specimen | + + | Blood specimen | | (specimen) | + + + + + + + | Performing | Address | City/State/Zipcode | Phone Number | | Organization | | | | + + + + + | BETH LIZ | [address] | [place] [address] | | | [facility] | | | | | YANY [...] | POC | Performed by [facility] [address] | | SACREVANS | | | | [address] [place], [place] | | HEART | | | | [address] | | MEDICAL | | | | [...] + | [facility]SE AE [facility] | [address] | [place] [address] | | | [facility] | [...] | POC | Performed by [facility] [address] | | SACRED | | | | [address] [place] | | HEART | | | | [address] | | MEDICAL | | | | [...] Ave. | [place] | | | [facility] | | | | | LABORATORY [...] | | | POC | [facility] [address], | | SACRED | | | | [place] | | HEART | | | |Performed by [facility] [address], [place] [address] | | MEDICAL | | | | [...] + + | BETH LIZ | [address] | [place] [address] | | | [facility] | [...] LABORATORY | | | | [facility] [address] [place], | | [place] | | | | [place] [address] | | | | + + + + + + + + | Specimen | + + | Blood specimen | | (specimen) | + + + + + + + | Performing | Address | City/State/Zipcode | Phone Number | | Organization | | | | + + + + + | B[facility] | [address] | [place] [address] | | | [facility] | [...] PROVIDE NCE | | | | by [facility] [address], | | SACRED | | | | [place] [address] | | HEART | | | |Performed by [facility] [address], [place] [address] | | MEDICAL | | | | [...] [address] | [place] [address] | | | [facility] | | | | | LABORATORY [...] | POC | Performed by [facility] [address] | | SACRED | | | | [address], [place] | | HEART | | | | [address] | | MEDICAL | | | | [...] + | JIMJOSE ADora AGUSTO | [address] | [place] [address] | | | [facility] | | | | | YANY [...] | POC | Performed by [facility] [address] | | SACRED | | | | [address] [place] | | HEART | | | | [address] | | MEDICAL | | | | [...] [address] | [place] [address] | | | [facility] | | | | | LABORATORY [...] AGUSTO | | | | [place] [address] | | HEART | | | |Performed by [facility] [address], [place] [address] | | MEDICAL | | | | [...] + + | BETH LIZ | [address] | [place], [place] | | | [facility] [...] | | | POC | [facility] [address], | | SACRED | | | | [place] [address] | | HEART | | | |Performed by [facility] [address], [place] [address] | | MEDICAL | | | | [...] + | JIMJOSE ADora LIZ | [address] | [place] [address] | | | [facility] | | | | | LABORATORY [...] | | | | | [facility] [address], | | | | | | [place] [address] | | | | + + + + + + + + | Specimen | + + | Blood specimen | | (specimen) | + + + + + + + | Performing | Address | City/State/Zipcode | Phone Number | | Organization | | | | + + + + + | [facility] | [address] | [place] [address] | | | [facility] | | | | | LABORATORY [...] | POC | Performed by [facility] [address] | | SACRED | | | | [address], [place] | | HEART | | | | [address] | | MEDICAL | | | | [...] + + | BETH ILZ | [address] | [place] [address] | | | [facility] | | | | | LABORATORY [...] | POC | Performed by [facility] [address] | | SACRED | | | | [address] [place] | | HEART | | | | [address] | | MEDICAL | | | | [...] [address] | [place] [address] | | | [facility] | | | | | LABORATORY [...] | POC | Performed by [facility] [address] | | SACRED | | | | [address], [place] | | HEART | | | | [address] | | MEDICAL | | | | [...] + | BETH LIZ | [address] | [place] [address] | | | [facility] | [...] | | | Performed by [facility] [address] | | SACRED | | | | [address] [place] | | HEART | | | | [address] | | MEDICAL | | | | [...] + + + + | PROVID[facility]SE AE [facility] | [address] | [place] [address] | | | [facility] | | | | | LABORATORY [...] | POC | Performed by [facility] [address] | | SACRED | | | | [address], [place] | | HEART | | | | [address] | | MEDICAL | | | | [...] + | BETH LIZ | [address] | [place] [address] | | | HEART [facility] | | | | | [...] | | | | | [facility] [address] [place], | | | | | | [place] [address] | | | | + + + + + + + + | Specimen | + + | Blood specimen | | (specimen) | + + + + + + + | Performing | Address | City/State/Zipcode | Phone Number | | Organization | | | | + + + + + | JIMRENUKA LIZ | [address] | [place] [address] | | | [facility] | | | | | LABORATORY [...] LABORATORY | | | | [facility] [address] | | [place] | | | | [place] [address] | | | | + + + + + + + + | Specimen | + + | Blood specimen | | (specimen) | + + + + + + + | Performing | Address | City/State/Zipcode | Phone Number | | Organization | | | | + + + + + | BETH LIZ | [address] | [place] [address] | | | [facility] | | | | | YANY [...] PROVIDE NCE | | | | by [facility] [address], | | SACRED | | | | [place] [address] | | HEART | | | |Performed by [facility] [address], [place] [address] | | MEDICAL | | | | [...] + | BETH LIZ | [address] | [place] [address] | | | [facility] | | | | | YANY [...] | | B-12 | by [facility] [address], | | SACRED | | | | [place] [address] | | HEART | | | |Performed by [facility] [address], [place] | | MEDICAL | | | [...] + + | B[facility]CR[facility] | [address] | [place] | | | [facility] [...] | | | | | [facility] [address], | | | | | | [place] [address] | | | | + + + + + + + + | Specimen | + + | Blood specimen | | (specimen) | + + + + + + + | Performing | Address | City/State/Zipcode | Phone Number | | Organization | | | | + + + + + | BETH [facility] | [address] | [place] [address] | | | [facility] | | | | | LABORATORY [...] | POC | Performed by [facility] [address] | | SACRED | | | | [address] [place] | | HEART | | | | [address] | | MEDICAL | | | | [...] + | BETH [facility]Z | [address] | [place] [address] | | | [facility] | | | | | LABORATORY [...] | POC | Performed by [facility] [address] | | SACRED | | | | [address], [place] | | HEART | | | | [address] | | MEDICAL | | | | [...] + | BETH LIZ | [address] | [place] [address] | | | [facility] | | | | | LABORATORY [...] | POC | Performed by [facility] [address] | | SACRED | | | | [address] [place] | | HEART | | | | [address] | | MEDICAL | | | | [...] + | BETH LIZ | [address] | [place] [address] | | | [facility]ICAL [facility]ENTER | [...] PROVIDE NCE | | | | by [facility] [address], | | SACRED | | | | [place] [address] | | HEART | | | |Performed by [facility] [address], [place] [address] | | MEDICAL | | | | [...] + + | BETH LIZ | [address] | [place] | | | [facility] | | | | | LABORATORY [...] | | | | by [facility] [address], | | [place]O | | | | [place] | | HEART | | | |Performed by [facility] [address], [place] [address] | | MEDICAL | | | | [...] + + | BETH LIZ | [address] [place] | [place] [address] | | | [facility] | [...] LABORATORY | | | | [facility] [address] [facility] [place], | | [place]ERN[place] | | | | [place] [address] | | | | + + + + + + + + | Specimen | + + | Blood specimen | | (specimen) | + + + + + + + | Performing | Address | City/State/Zipcode | Phone Number | | Organization | | | | + + + + + | BETH LIZ | [address] | [place] [address] | | | [facility] | | | | | LABORATORY [...] | POC | Performed by [facility] [address] | | SACRED | | [...] + | [facility] [place] | [address] | [place] [address] | | | [facility] | | | | | LABORATORY [...] | POC | Performed by [facility] [address] | | SACRED | | | | [address], [place] | | HEART | | | | [address] | | MEDICAL | | | | [...] + | BETH LIZ | [address] | [place] [address] | | | [facility] | | | | | LABORATORY [...] | SACRED | | | Total | [id number] | | HEART | | | | [address] [place], [place] | | MEDICAL | | | | [phone] Daniel | | CENTER | | | | L [phone] | | LABORATORY | | | | [...] + + | BETH LIZ | [address] | [place] [address] | | | [facility] | | | | | LABORATORY [...] | | | | by [facility] [address], | | HEART | | | | [place] [address] | | MEDICAL | | | | [...] [address] | [place] [address] | | | [facility] | | | | | LABORATORY [...] | | | | by [facility] [address], | | HEART | | | | [place] [address] | | MEDICAL | | | | [...] + + | BETH LIZ | [address] | [place] [address] | | | HEART [facility] | | | | | [...] | MEDICAL | | | | by [facility] [address], | | CENTER | | | | [place] [address] | | LABORATORY | | | |Performed by [facility] [address], [place] [address] | | CERNER | | | | [...] + + | BTEH LIZ | [address] | [place] [address] | | | [facility] | | | | | LABORATORY [...] | POC | Performed by [facility] [address] | | [place]ANS | | | | [place] | | HEART | | | | [address] | | MEDICAL | | | | [...] + | BETH LIZ | [address] | [place] [address] | | | [facility] | | | | | LABORATORY [...] | POC | Performed by [facility] [address] | | SACRED | | [...] [address] | [place] [address] | | | HEART [facility] | | | | | [...] | | | 3.5Performed by [facility] [address] | | LABORATORY | | | | [address], [place] | | [place] | | | | [address] | | | | + + + + + + + + | Specimen | + + | Blood specimen | | (specimen) | + + + + + + + | Performing | Address | City/State/Zipcode | Phone Number | | Organization | | | | + + + + + | BETH LIZ | [address] | [place] [address] | | | [facility] | | | | | YANY [...] | Immature | Performed by [facility] [address] | K/uL | SACRED | | | Granulocyte | [place] | | HEART | | | s | [phone] | | MEDICAL | | | | [...] + | BETH LIZ | [address] | [place] [address] | | | [facility] | | | | | LABORATORY [...] LABORATORY | | | | [facility] [address], | | [place] | | | | [place] [address] | | | | + + + + + + + + | Specimen | + + | Blood specimen | | (specimen) | + + + + + + + | Performing | Address | City/State/Zipcode | Phone Number | | Organization | | | | + + + + + | BETH LIZ | [address] | [place] [address] | | | [facility] | | | | | LABORATORY [...] | | | | First dose on [facility] 03/30/19 at 1130 | | AM PDT [...] | | | | First dose on [facility] 03/30/19 at 2100 | | PM PDT [...] scheduled: AC, NPO, Daytime | | | 6058-0606 Use NIGHT DOSE for | | | doses scheduled: HS, 3AM, | | | Nighttime 9483-4806 If the BG is | | | [...] | | | | | | | [place] 10/325 if ordered., | | | | [...]
--- OUTSIDE RECORDS SUMMARY | ~2019-09-08 | XMS | Encounter Summary ---
Demographics + + + | Address | [address] | | | [place] [address] | + + + | Home Phone [...] | [facility] | | | and [place] | + + + | Organization | [facility] | | | and [place] | + + + | Address | Unknown | + + + | Phone | Unavailable | + + + Support + + + + + | Name | Relationship | Address | Phone | + + + + + | India Tilley | ECON | [address] | | | | | [place], [place] | | | | | [address] | | + + + + + | Yina La | ECON | Unknown | | + + + + + | Yina Peterson | ECON | Unknown | | + + + + + | Leatha Casillas | ECON | Unknown | | + + + + + Care Team Providers + +------+ + | Care Agriscience Instructor Name | Role | Phone | [...] | Surgery | kidney | DO [address] | [address] | | | | | disease, | Sweta, Jorden | [address] | | | | | stage V | [address] | [place], | | | | | ([facility]) | [place] | [place] [address] | | | | | | [address] | Phone: | | | | | | Phone: | [phone] | | | | | | [phone] | Fax: | | | | | | Fax: | [phone] | | | | | | [phone] | | +--------+ + + + + + Encounter Details +--------+---------+ + + + | Date | Type | Department | Care Team | Description | +--------+---------+ + + + | 12/30/ | Office | [facility] | Santos Stephenson | Chronic kidney | | 2018 | Visit | SURGERY [address] | MD Kinga, FACS [address] | disease, stage V | | | | [place], [place] | [address] [facility] | (HCC) (Primary Dx) | | | | [address] | [place] [address] | | | | | [phone] | [phone] | | | | | | | [...] Same Day Surgery (corner of [address]) at 12:00pm. Your surgery is called AV [...] successful and comfortable surgery. Sign up for Zighra if you want easy access to your medical information online. You can: Review your medications, immunizations, allergies and medical history. View details of your past and upcoming appointments. Sign up for Zighra if you want easy access to your medical information online. Only you, your doctor and your health care team are permitted to view the information sent through [email or web address]. Through Zighra you can: ? Review your medications, immunizations, [...] different ways you can sign up for Zighra: ? The first way is to get online at: [email or web address] and sign up directly throug h the website prior to your appointment with us. You can call [phone] ([phone]) if you have any questions or need assistance. ? The second way is through the Zighra lyudmila which can be accessed with any smart phone. Ju st go to your lyudmila store and look up RallyPoint. ? The third way is to do [...] ? Francisca Womack PA-C Who is your Cancer Registry Coordinator/Kidney Specialist ? Dr. Muñoz When was the [...] dialysis on Wednesday, Wednesday and Fridays in [place]. She states she has had breast cancer, had a LEFT side mastectomy. CARDIAC: Denies VA, chest pain or tightness. RISK: Never smoker, current 38 year diabetic. Family Hx of diabetes. States mother had kid cedric failure NICO: Patient has previously been diagnosed with sleep apnea. She had a sleep study performe d at [facility] but does not wear a CPAP [...] Nora Leo MD; Location : [facility] MAIN OR Allergies Allergen Reactions Lisinopril [...] REPORT: PATIENT NAME : Estefani Tilley EQUIPMENT: Beisen-ICON Aircrafto with 10-5 mHertz probe. INDICATIONS: Dialysis access [...]
--- OUTSIDE RECORDS SUMMARY | ~2019-09-08 | XMS | Encounter Summary ---
Demographics + + + | Address | [address] | | | [place] [address] | + + + | Home Phone [...] | Author | [facility] | | | and [place] | + + + | Organization | [facility] | | | and [place] | + + + | Address | Unknown | + + + | Phone | Unavailable | + + + Support + + + + + | Name | Relationship | Address | Phone | + + + + + | India Tilley | ECON | [address] | | | | | [place], [place] | | | | | [address] | | + + + + + | Yina La | ECON | Unknown | | + + + + + | Yina Peterson | ECON | Unknown | | + + + + + | Leatha Casillas | ECON | Unknown | | + + + + + Care Team Providers + +------+ + | Care Head Shipper Name | Role | Phone | + +------+ + PCP | Unavailable | + +------+ + Encounter Details +--------+ + + + + | Date | Type | Department | Care Team | Description | +--------+ + + + + | 06/23/ | Hospital | [facility] | Patricia, | | | 2006 - | Encounter | MED CTR CANCER | Venkatesh Forte MD [address] | | | | [place] [address] | [facility] | | | 07/13/ | | [place] | [place] [address] | | | 2006 | | [address] | [phone] | | | | | [phone] | | | +--------+ + + + [...]
--- OUTSIDE RECORDS SUMMARY | ~2019-09-08 | XMS | Encounter Summary ---
Demographics + + + | Address | [address] | | | [place] [address] | + + + | Home Phone [...] Author | [facility] | | | and Kamaljit[place] | + + + | Organization | [facility] | | | and [place] | + + + | Address | Unknown | + + + | Phone | Unavailable | + + + Support + + + + + | Name | Relationship | Address | Phone | + + + + + | India Tilley | ECON | [address] | | | | | [place], [place] | | | | | [address] | | + + + + + | Yina La | ECON | Unknown | | + + + + + | Yina Peterson | ECON | Unknown | | + + + + + | Leatha Casillas | ECON | Unknown | | + + + + + Care Team Providers + +------+ + | Care Paper Machine Tender Name | Role | Phone | + +------+ + PCP | Unavailable | + +------+ + Encounter Details +--------+ + + + + | Date | Type | Department | Care Team | Description | +--------+ + + + + | 01/04/ | Hospital | [facility] | Santos Stephenson | Decreased glomerular | | 2018 | Encounter | MED CTR OR INTRA OP | MD Kinga, FACS [address] | filtration rate | | | | [address] | [facility] | (GFR) | | | | [place], [place] | [place] [address] | | | | | [address] | [phone] | | | | | [phone] | | | +--------+ + + + [...] what medicines and drugsyou take. This includes nyck-xeg-vym nter medicines, herbs, supplements, alcohol or other [...] ke ep you safe. Date Last Reviewed: 08/13/201619999226-1488 [employer]. [address] [place] [address]. All righ ts reserved. This information is not intended as a substitute for professional medical care. Always follow your healthcare professional's instructions. [facility] POST-OP INSTRUCTIONS: Arterio-Venous Fistula 1. [...] Resume normal diet. 7. Please call Dr. Stephensno's office today or tomorrow for a followup [...] | | | PDT | ([facility]) (N18.5) | | + +--------+ + [...] [address] | [place] | [phone] | | [facility] | | [address] | | | - LABORATORY | | [...] + | [facility] | [address] | [place] | [phone] | | [facility] | | [address] | | | [...] [address] | [place] | [phone] | | [facility] | | [address] | | | - LABORATORY | | [...] + | [facility] | [address] | [place] | [phone] | | [facility] | | [address] | | | - LABORATORY | | [...] | mL/min/1.73m2 | NERISSA | | | [place]ANI | RATE,ESTIMATED | | MEDICAL | | | | mL/min/1.84k1Unfx than | | CENTER - | | [...] [address] | [place] | [phone] | | [facility] | | [address] | | | - LABORATORY | | [...]
--- OUTSIDE RECORDS SUMMARY | ~2019-09-08 | XMS | Encounter Summary ---
Demographics + + + | Address | [address] | | | [place] [address] | + + + | Home Phone [...] | Author | [facility] | | | and [place] | + + + | Organization | [facility] | | | and [place] | + + + | Address | Unknown | + + + | Phone | Unavailable | + + + Support + + + + + | Name | Relationship | Address | Phone | + + + + + | India Tilley | ECON | [address] | | | | | [place], [place] | | | | | [address] | | + + + + + | Yina La | ECON | Unknown | | + + + + + | Yina Peterson | ECON | Unknown | | + + + + + | Leatha Casillas | ECON | Unknown | | + + + + + Care Team Providers + +------+ + | Care Two Way Radio Technician Name | Role | Phone | [...] | | | | | ([facility]) | | | | | | | Complication | | | | | | | s, dialysis, | | | | | | | catheter, | | | | | | | mechanical, | | | | | | | initial | | | | | | | encounter | | | | | | | ([facility]) | | | | | | | [...] | | | | | [address] | [place] | | | | | [place] | [address] | | | | | [address] | | | | | | [phone] | | | +--------+ + + + [...] +----+---+ + + | | 2 | Altus | | | | 2 | 43-degrees [...] 02/05/18 0130 by | | eral | dftz-cvq-zqcble catheter system; | Keren Hernandez RN | [...]
--- OUTSIDE RECORDS SUMMARY | ~2019-09-08 | XMS | Encounter Summary ---
Demographics + + + | Address | [address] | | | [place] [address] | + + + | Home Phone [...] | Author | [facility] | | | and [place] | + + + | Organization | [facility] | | | and [place] | + + + | Address | Unknown | + + + | Phone | Unavailable | + + + Support + + + + + | Name | Relationship | Address | Phone | + + + + + | India Tilley | ECON | [address] | | | | | [place], [place] | | | | | [address] | | + + + + + | Yina La | ECON | Unknown | | + + + + + | Yina Peterson | ECON | Unknown | | + + + + + | Leatha Casillas | ECON | Unknown | | + + + + + Care Team Providers + +------+ + | Care Automatic Nailing Machine Operator Name | Role | Phone [...] + | 03/11/ | Telephone | [facility] | Santos Stephenson | Vascular Access | | 2018 | | SURGERY [address] | MD Kinga, FACS [address] | Problem | | | | [place], [place] | [address] [facility] | | | | | [address] | [place] [address] | | | | | [phone] | [phone] | | | | | | | [...]
--- OUTSIDE RECORDS SUMMARY | ~2019-09-08 | XMS | Encounter Summary ---
Demographics + + + | Address | [address] | | | [place] [address] | + + + | Home Phone [...] | [facility] | | | and [place] | + + + | Organization | [facility] | | | and [place] | + + + | Address | Unknown | + + + | Phone | Unavailable | + + + Support + + + + + | Name | Relationship | Address | Phone | + + + + + | India Tilley | ECON | [address] | | | | | [place], [place] | | | | | [address] | | + + + + + | Yina La | ECON | Unknown | | + + + + + | Yina Peterson | ECON | Unknown | | + + + + + | Leatha Casillas | ECON | Unknown | | + + + + + Care Team Providers + +------+ + | Care Research Instrumentation Technician Name | Role | Phone | + +------+ + PCP | Unavailable | + +------+ + Encounter Details +--------+ + + + + | Date | Type | Department | Care Team | Description | +--------+ + + + + | 03/02/ | Hospital | [facility] | [place], | | | 2007 | Encounter | MED CTR EMERGENCY | Venkatesh Esteban MD [address] | | | | | [place] [address] | [facility] | | | | | [place], [place] | [place] [address] | | | | | [address] | [phone] | | | | | [phone] | | | +--------+ + + + [...]
--- OUTSIDE RECORDS SUMMARY | ~2019-09-08 | XMS | Encounter Summary ---
Demographics + + + | Address | [address] | | | [place] [address] | + + + | Home Phone [...] | Author | [facility] | | | and [place] | + + + | Organization | [facility] | | | and [place] | + + + | Address | Unknown | + + + | Phone | Unavailable | + + + Support + + + + + | Name | Relationship | Address | Phone | + + + + + | India Tilley | ECON | [address] | | | | | [place], [place] | | | | | [address] | | + + + + + | Yina La | ECON | Unknown | | + + + + + | Yina Peterson | ECON | Unknown | | + + + + + | Leatha Casillas | ECON | Unknown | | + + + + + Care Team Providers + +------+ + | Care Construction Driller Name | Role | Phone | + +------+ + PCP | Unavailable | + +------+ + Reason for Visit +--------+ + | Reason | Comments | +--------+ + | Other | Admission Records 06/20/2019-06/22/2019- [facility] . | +--------+ + Encounter Details +--------+ + + + + | Date | Type | Department | Care Team | Description | +--------+ + + + + | 06/27/ | Documentati | [facility] | Tabatha Patel, | Other (Admission | | 2019 | on | INFECTIOUS DISEASE | Industrial Roofer Helper | Records | | | | [address] | | 06/20/2019- | | | | [place], [place] | | [facility] | | | [address] | | [facility] . ) | | | | [phone] | | | +--------+ + + + [...] as of this encounter Progress Tabatha Rowley Industrial Roofer Helper - 06/27/2019 10:44 AM PDTReceived records from [facility]. For patient [facility] from 06/[facility]2019-06/22/2019. Records were sent to scan. Yoko CMA. documen rich in this encounter Plan of Treatment Not on filedocumented as of this encounter Visit Diagnoses Not on filedocumented in this encounter"
--- OUTSIDE RECORDS SUMMARY | ~2019-09-08 | XMS | Encounter Summary ---
Demographics + + + | Address | [address] | | | [place] [address] | + + + | Home Phone [...] Author | [facility] | | | and [place] | + + + | Organization | [facility] | | | and [place] | + + + | Address | Unknown | + + + | Phone | Unavailable | + + + Support + + + + + | Name | Relationship | Address | Phone | + + + + + | India Tilley | ECON | [address] | | | | | [place], [place] | | | | | [address] | | + + + + + | Yina La | ECON | Unknown | | + + + + + | Yina Peterson | ECON | Unknown | | + + + + + | Leatha Casillas | ECON | Unknown | | + + + + + Care Team Providers + +------+ + | Care Complaint Specialist Name | Role | Phone | + +------+ + PCP | Unavailable | + +------+ + Reason for Visit +---------+ + | Reason | Comments | +---------+ + | Slitter Operator | | +---------+ + Encounter Details +--------+ + + + + | Date | Type | Department | Care Team | Description | +--------+ + + + + | 12/12/ | Telephone | [facility] | Scott Koroma, | Slitter Operator | | 2018 | | ORTHOPEDIC SURGERY | [address] [facility] | | | | | [address] [facility] | [place] | | | | | [place] | [address] | | | | | [address] | | | | | | [phone] | | | +--------+ + + + [...]
--- OUTSIDE RECORDS SUMMARY | ~2019-09-08 | XMS | Clinical Summary ---
Demographics + + + | Address | [address] | | | [place] [address] | + + + | Home Phone [...] Author | [facility] | | | and Kamaljitana | + + + | Organization | [facility] | | | and [place] | + + + | Address | Unknown | + + + | Phone | Unavailable | + + + Support + + + + + | Name | Relationship | Address | Phone | + + + + + | India Tilley | ECON | [address] | | | | | [place], [place] | | | | | [address] | | + + + + + | Yina La | ECON | Unknown | | + + + + + | Yina Peterson | ECON | Unknown | | + + + + + | Leatha Casillas | ECON | Unknown | | + + + + + Care Team Providers + +------+ + | Care Data Security Coordinator Name | Role | Phone | + +------+ + | Renato villarreal [employer] LABOURER | PCP | | + +------+ + [...] | | + + + +---------+------+------+-------+ | cloNIDine | Place 1 patch onto | 4 patch | 11 | 08/1 | | Activ | | (CATAPRES) 0.3 mg/24 | the skin Once a | | | 6/20 | | e | | hr patch | week. | | | 19 | | | + + + +---------+------+------+-------+ | gabapentin | Take 2 capsules by | | 0 | 08/2 | | Activ | | (NEURONTIN) 100 mg | mouth every morning. | | | 9/20 | | e | | capsule | | | | 19 | | | + + + +---------+------+------+-------+ | furosemide (LASIX) | Take 1 tablet by | 90 | 3 | 08/2 | | Activ | | 80 mg tablet | mouth Daily. | tablet | | 9/20 | | e | | | | | | 19 | | | + + + +---------+------+------+-------+ | epoetin karthik | Inject 0.85 mLs [...] | | | informationPatient | | | taking differently: | | | 11,000 Units | | | Intravenous THREE | | | TIMES WEEKLY, | | | Reported on | | | 07/30/2019 3:13 PM | +---+ + + + +--------+---+------+---+-------+ [...] tablet by | 60 | 0 | 09/1 | | Activ | | (NORVASC) 5 mg | mouth 2 times daily. | tablet | | 2/20 | | e | | tablet | | | | 19 | | | + + +--------+---+------+---+-------+ | losartan (COZAAR) | Take 1 tablet by | 30 | 0 | 09/1 | | Activ | | 100 MG tablet | mouth Daily. | tablet | | 3/20 | | e | | | | [...] + + | Overview: Overview: | | R frontal Parietal, [facility]. | | | | Dx name changed [...] | mastectomy L Oct 19 with chemo [facility] | | | | IMO [...] + + | 08/17/ | Telephone | Vascular Surgery | Louise Fink, | Procedure (no show) | | 2018 | | | RN | | +--------+ + + + + | 08/16/ | Telephone | Radiology | Fransisco Johnston MD | | | 2018 | | | | | +--------+ + + + + | 07/31/ | Telephone | Vascular Surgery | Louise Fink, | Procedure | | 2018 | | | RN | | +--------+ + + + + | 07/26/ | Telephone | Vascular Surgery | Francisca Robert, | Surgery Appointment | | 2018 | | | RN | | +--------+ + + + + | 07/13/ | Hospital | Radiology | Fabiana Miller, | Canceled (OTHER) | | 2018 | Encounter | [...] + + | 07/10/ | Off-Site | Nephrology | Gopi Muñoz | ESRD (end stage | | 2018 | Visit | | DO Jessie | renal disease) on | | | | | | dialysis (HCC) | | | | | | (Primary Dx) | +--------+ + + + + | 06/27/ | Telephone | Radiology | Ta Melendez, | Appointment | | 2018 | | | | (schedule) | +--------+ + + + + | 06/27/ | Documentati | Infectious Diseases | Tabatha Patel, | Other (Admission | | 2018 | on | | Citrus Fruit Colorer | Records | | | | | | 06/20/2019- | | | | | | 9- [facility] | | | | | | [facility] . ) | +--------+ + + + + | 06/26/ | Documentati | Nephrology | Gopi Muñoz | | 2018 | on | | DO Jessie | | +--------+ + + + + | 06/19/ | Telephone | Radiology | Ibis Arriola | | | 2018 | | | LISA Restrepo | | +--------+ + + + + | 06/15/ | Telephone | Radiology | Ibis Arriola | | 2018 | | | LISA Restrepo | | +--------+ + + + + | 06/14/ | Telephone | Infectious Diseases | Tabatha Patel, | Care Coordination | | 2019 | | | Citrus Fruit Colorer | (Patient Timeline - | | | [...] Gerald Lee, | Infection of | | 2018 | | | Prekindergarten Teacher | intervertebral disc | | | | | | (pyogenic), thoracic | | | | | | region (HCC); | | | | | | Osteomyelitis of | | | | | | thoracic vertebra | | | | | | (HCC) | +--------+ + + + + from [...] | + + + + | INFLUENZA, [id number], | 08/28/2009 | | | UNSPECIFIED | [...] + + + + | Vaccine: Zoster (3 | | 08/07/2019, 01/28/2012 | | | of 3) | 0 | | | + + + + [...] + + + | Vaccine: Influenza | Completed | 06/16/2019, 06/03/2018, | | | | | 09/23/2017, Additional history | | | | | [...] | Right: | CATIA | | | [id number] | | 6.5x85mm - | | Hip | MEDICAL - | | | S / / | | [id number]: Qty: 2 | | | STRY | | | | | on 12/04/2018 by Ga, | | | | | | | | Scott John MD at [facility] | | | | | | | | [facility] | | | | | | | + +-------+--------+ +--------+--------+--------+ | Screw Asnis 3 Ti 20mm | Screw | Right: | CATIA | | | [id number] | | 6.5x90mm - | | Hip | MEDICAL - | | | S / / | | [id number]: Qty: 1 | | | STRY | | | | | on 12/04/2018 by Ga, | | | | | | | | Scott John MD at [facility] | | | | | | | | [facility] | | | | | | | [...] section. | | | | | region ([facility]) | | | | | | Osteomyelitis of | | | | | | thoracic vertebra | | | | | | ([facility]) | | + +--------+ + + + | C-REACTIVE PROTEIN | Routin | 06/13/2019 | Infection of | Results for this | | | e | 3:12 PM | intervertebral disc | procedure are in the | | | | PDT | (pyogenic), thoracic | results section. | | | | | region ([facility]) | | | | | | Osteomyelitis of | | | | | | thoracic vertebra | | | | | | ([facility]) | | + +--------+ + + + from Last 3 Months Results Sedimentation Rate (06/13/2019 3:12 PM PDT) + + + + + + | Component | Value | Ref Range | Performed | Pathologist | | | | | At | Signature | + + + + + + | ESR | 53 (H)Comment: Testing | 0 - 30 mm/Hr | REFERENCE | | | | performed at [facility];[address] | | LAB | | | | [place] | | [facility] | | | | [address];[place] [address] | | LABORATORY | | + + + + + + + + | Specimen | + + | Blood | + + + + + + + | Performing | Address | City/State/Zipcode | Phone Number | | Organization | | | | + + + + + | REFERENCE LAB | [address] | [place] [address] | [phone] | | [facility] | [address] | | | | LABORATORY | | | | + + + + + | REFERENCE LAB | [address] | [place] [address] | | | [facility] | [address] | [...] REFERENCE | | | | performed at [facility];[address] | | LAB | | | | [place] | | [facility] | | | | [address];[place] [address] | | LABORATORY | | + + + + + + + + | Specimen | + + | Blood | + + + + + + + | Performing | Address | City/State/Zipcode | Phone Number | | Organization | | | | + + + + + | REFERENCE LAB | [address] | [place] [address] | [phone] | | [facility] | Bl[address] | | | | LABORATORY | | | | + + + + + | REFERENCE LAB | [address] | [place] [address] | | | [facility] | Bl[address] | | | | LABORATORY | | | | + + + + + from Last 3 [...] +--------+ +---------+--------+ | MEDICARE | MEDICA | [id number] | 04/13/20 | [phone] | | Medica | | | RE | | 11-Pre | 5 | | re | | | PART A | | sent | | | | | | AND B | | | | | | + +--------+ +--------+ +---------+--------+ | MEDICARE | MEDICA | [id number] | 04/13/20 | [phone] | | Medica | | | RE | | 11-Pre | 5 | | re | | | PART A | | sent | | | | | | AND B | | | | | | + +--------+ +--------+ +---------+--------+ | [facility] | IHS | [id number] | | | | Indemn | | SERVICE | YELLOW | | 019-Pr | | | ity | | | HAWK | | esent | | | | + +--------+ +--------+ +---------+--------+ | [place]ID [place] | MEDICA | [id number] | 03/13/20 | [phone] | | Medica | | | ID [place] | | 17-Pre | 2 | | id | | | PLUS | | sent | | | | + +--------+ +--------+ +---------+--------+ | [facility] | IHS | [id number] | | | | Indemn | | [...] | + +--------+ +--------+ + + | Estefani Tilley | Person | Self | [birth year] | [address] | | | al/Fam | | 1945 | [phone] | [place] [address] | | | natali | | | 7 (Home) | | | | | | | [phone] | | | | | | | 0 (Work) | | + +--------+ +--------+ + + | Estefani Tilley | Person | Self | [birth year] | | [address] | | | al/Fam | | 1945 | [phone] | [place] [address] | | | natali | | | 7 (Home) | | | | | | | [phone] | | | | | | | 0 (Work) | | + +--------+ +--------+ + + Advance Directives + + + + + | Type | Date Recorded | Patient | Explanation | | | | Evaporative Cooler Installer | | + + + + + | Power of | | | | | Infrastructure Analyst | | | | + + + [...]
--- OUTSIDE RECORDS SUMMARY | ~2019-09-08 | XMS | Encounter Summary ---
Demographics + + + | Address | [address] | | | [place] [address] | + + + | Home Phone [...] Author | [facility] | | | and Kamaljitana | + + + | Organization | [facility] | | | and [place] | + + + | Address | Unknown | + + + | Phone | Unavailable | + + + Support + + + + + | Name | Relationship | Address | Phone | + + + + + | India Tilley | ECON | [address] | | | | | [place], [place] | | | | | [address] | | + + + + + | Yina La | ECON | Unknown | | + + + + + | Yina Peterson | ECON | Unknown | | + + + + + | Leatha Casillas | ECON | Unknown | | + + + + + Care Team Providers + +------+ + | Care Air Shovel Operator Name | Role | Phone | + +------+ + PCP | Unavailable | + +------+ + Encounter Details +--------+ + + + + | Date | Type | Department | Care Team | Description | +--------+ + + + + | 12/27/ | Documentati | [facility] | Gopi Muñoz | | | 2019 | on | NEPHROLOGY [address] | M, DO [address] [place] | | | | | [address] | [place] | | | | | [place], [place] | [place] | | | | | [address] | [address] | | | | | [phone] | | | +--------+ + + + [...] Progress Tatiana Gamble - 12/27/2018 9:13 AM [facility] order, sign ed and dated 12/23/[address] Muñoz. Sent to scan. documented in this encounter Plan of Treatment Not on filedocumented as of this encounter Visit Diagnoses Not on filedocumented in this encounter"
--- OUTSIDE RECORDS SUMMARY | ~2019-09-08 | XMS | Encounter Summary ---
Demographics + + + | Address | [address] | | | [place] [address] | + + + | Home Phone [...] Author | [facility] | | | and Kamal[place]itana | + + + | Organization | [facility] | | | and [place] | + + + | Address | Unknown | + + + | Phone | Unavailable | + + + Support + + + + + | Name | Relationship | Address | Phone | + + + + + | India Tilley | ECON | [address] | | | | | [place], [place] | | | | | [address] | | + + + + + | Yina La | ECON | Unknown | | + + + + + | Yina Peterson | ECON | Unknown | | + + + + + | Leatha Casillas | ECON | Unknown | | + + + + + Care Team Providers + +------+ + | Care Green Meat Packer Name | Role | Phone | [...] + + | 10/06/ | Telephone | [facility] | Gopi Muñoz | Nephrology | | 2018 | | NEPHROLOGY [address] | M, DO [address] [place] | Appointment | | | | [address] | [place] | | | | | [place], [place] | [place] | | | | | [address] | [address] | | | | | [phone] | | | +--------+ + + + [...]
--- OUTSIDE RECORDS SUMMARY | ~2019-09-08 | XMS | Encounter Summary ---
Demographics + + + | Address | [address] | | | [place] [address] | + + + | Home Phone [...] Author | [facility] | | | and [place]it[place] | + + + | Organization | [facility] | | | and [place] | + + + | Address | Unknown | + + + | Phone | Unavailable | + + + Support + + + + + | Name | Relationship | Address | Phone | + + + + + | India Tilley | ECON | [address] | | | | | [place], [place] | | | | | [address] | | + + + + + | Yina La | ECON | Unknown | | + + + + + | Yina Peterson | ECON | Unknown | | + + + + + | Leatha Casillas | ECON | Unknown | | + + + + + Care Team Providers + +------+ + | Care Lawn Mower Repairer Name | Role | Phone | [...] Required | | deconditioni | DO [address] | | | | | | ng Anemia | [place], [place] | | | | | | of chronic | [address] | | | | | | renal | [place], [place] | | | | | | failure, | [address] | | | | | | stage 5 | Phone: | | | | | | ([facility]) | [phone] | | | | | | Closed | Fax: | | | | | | fracture of | [phone] | | | | | | right [...] | ([facility]) | | | +--------+--------+ + + + + Encounter Details +--------+ + + + + | Date | Type | Department | Care Team | Description | +--------+ + + + + | 12/04/ | Hospital | [facility] | Nick Mendoza MD | Closed fracture of | | 2019 - | Encounter | [facility] | [address] | neck of right femur, | | | | [address] | [place] | initial encounter | | 12/09/ | | [place] [address] | [phone] | ([facility]) (Primary Dx); | | 2019 | | [phone] | | Non-compliance; End | | | | | Scott Koroma MD | stage renal disease | | | | | [address] | ([facility]); Type 2 | | | | | [place], [place] | diabetes mellitus | | | | | [address] | with stage 4 chronic | | | | | | kidney disease, | | | | | | with long-term | | | | | | current use of | | | | | | insulin ([facility]); | | | | | | Closed fracture of | | | | | | right hip, initial | | | | | | encounter ([facility]); | | | | | | Type 2 DM with CKD | | | | | | stage 5 and | | | | | | hypertension ([facility]); | | | | | | Renal bone disease; | | | | | | Physical | | | | | | deconditioning; | | | | | | Anemia of chronic | | | | | | renal failure, stage | | | | | | 5 ([facility]); Closed | | | | | | [...] signed by: Scott Koroma, 12/20/2018 12:05 [facility] Scott Koroma MD at 05/2019 12:10 PM PDTdocumented in this encounter Discharge Instructions Instructions Gopi Muñoz DO - . Please keep your old HD appt. at [facility] for 12/12/2018. 2. Call our Office if you change your mind and wish to go to [facility] , for further R ehab. 3. [...] might be d ifferent from the original. [facility] [address] [place] [address] PROGRESS NOTE Pt. Name/Age/: Estefani Tilley 73 y.o. 1945 Med. Record Number: [id number] Date of admission: 12/04/2018 NEPHROLOGY HPI - [...] Lungs: Prolonged expiratory phase, with findings of [place] rales lower 1/4 both lungs. Abdomen: Soft, [...] tomorrow and assess for DC soon. [facility] Amol Green MD - 12/08/2018 3:29 [...] to any Rehab. Ctr after DC. [facility] Scott Tadeo MD - 12/07/2018 8:56 [...] Hassan DO - 12/06/2018 5:33 PM PDT [facility] [address] [place] [address] PROGRESS NOTE Pt. Name/Age/: Estefani Tilley 73 y.o. 1945 Med. Record Number: [id number] Date of admission: 12/04/2018 NEPHROLOGY HPI - [...] Lungs: Prolonged expiratory phase, with findings of [place] rales lower 1/4 both lungs. Abdomen: Soft, [...] go home when felt ap propriate [facility] Scott Tadeo MD - 12/06/2018 8:02 [...] directions X Pharmacy list names: [facility] ([place]) X Outside Information Vaccines up to date? [...] did not want to answer medication history technician anatomic pathology's questions; barely verifie d her name. Answered questions with head nods or patients stating that she was not taking a medication. Medication: Prior to Admission Sig: Patient taking differently GASTROENTEROLOGY PROFESSOR as: Atorvastatin 20 mg tablet Take 1 [...] idea what this medication was Best possible GASTROENTEROLOGY PROFESSOR medication list after pharmacy review: PT REPORTED [...] into the vein Three times a w sycuan. Historical Provider, epoetin karthik (EPOGEN, PROCRIT) 10,000 [...] performed and electronically signed by Kerry Jordan, Telephone Solicitor 12/05/2018 14:45 Reviewed by Flora Watts, PharmD 12/05/2018 15:51 Scott Tadeo MD - 12/05/2018 7:41 AM PDT Patient feels better than yest Vitals: 12/05/18 0731 BP: 152/71 Pulse: 67 Resp: 16 Temp: 36.4 C (97.6 F) Intake/Output Summary (Last 24 hours) at 12/05/18 0724 Last data filed at 12/05/18 2797 Gross per 24 hour Intake 1115 ml [...] | | | | | | 5 ([facility]) Closed | | | | | | [...] R?MRN: | | | | | | [id number] | | | [id number] | | | riteri | | | [...] | | | St. | | | [place] | | | y | | | [...] | | | [facility] | | | [place] | | | 3 0 | | | [facility] | | | [facility] | | | [place] | | | y | | | [...] | | | St. | | | [facility] | | | y H. | | [...] | | e of | | | hoopa | | | | | | mckeon [...] | | | St. | | | [facility] | | | y H. | | [...] the | | | | | | brownfield redevelopment site manager | | | al | | [...] | | | St. | | | [facility] | | | y H. | | [...] | | e of | | | hoopa | | | | | | mckeon [...] | | | [facility] | | | [place] | | | [place] | | | ID | | | [...] | | | [facility] | | | [place] | | | [place] | | | ID | | | [...] | | | [facility] | | | [place] | | | [place] | | | ID | | | [...] | | | [facility] | | | [place] | | | [place] | | | ID | | | [...] | | | [facility] | | | [place] | | | [place] | | | ID | | | [...] | | | [facility] | | | [facility] | | | | | | HEALTH [...] | | | [id number] | | | [id number] | | | [phone] | | | [...] + | [facility] | [address] | [place] | [phone] | | [facility] | | [address] | | | - LABORATORY | | [...] + | [facility] | [address] | [place] | [phone] | | [facility] | | [address] | | | - LABORATORY | | [...] [address] | [place] | [phone] | | [facility] | | [address] | | | - LABORATORY | | [...] + | [facility] | [address] | [place] | [phone] | | [facility] | | [address] | | | - LABORATORY | | [...] [address] | [place] | [phone] | | [facility] | | [address] | | | - LABORATORY | | [...] [address] | [place] | [phone] | | [facility] | | [address] | | | - LABORATORY | | [...] [address] | [place] | [phone] | | [facility] | | [address] | | | - LABORATORY | | [...] + | [facility] | [address] | [place] | [phone] | | [facility] | | [address] | | | - LABORATORY | | [...] [address] | [place] | [phone] | | [facility] | | [address] | | | - LABORATORY | | [...] [address] | [place] | [phone] | | [facility] | | [address] | | | - LABORATORY | | [...] + | [facility] | [address] | [place] | [phone] | | [facility] | | [address] | | | - LABORATORY | | [...] + | [facility] | [address] | [place], [place] | [phone] | | [facility] | | [address] | | | - LABORATORY | | [...] [address] | [place] | [phone] | | [facility] | | [address] | | | - LABORATORY | | [...] [address] | [place] | [phone] | | [facility] | | [address] | | | - LABORATORY | | [...] [address] | [place] | [phone] | | [facility] | | [address] | | | - LABORATORY | | [...] + | [facility] | [address] | [place] | [phone] | | [facility] | | [address] | | | - LABORATORY | | [...] [address] | [place] | [phone] | | [facility] | | [address] | | | - LABORATORY | | [...] ST. | [address] | [place], [place] | [phone] | | [facility] | | [address] | | | - LABORATORY | | [...] [address] | [place] | [phone] | | [facility] | | [address] | | | - LABORATORY | | [...] + | [facility] | [address] | [place] | [phone] | | [facility] | | [address] | | | - LABORATORY | | [...] [address] | [place] | [phone] | | [facility] | | [address] | | | - LABORATORY | | [...] [address] | [place] | [phone] | | [facility] | | [address] | | | - LABORATORY | | [...] mL/min/1.73m2 | [facility] | | | [place] | | | MEDICAL | | | [...] [address] | [place] | [phone] | | [facility] | | [address] | | | - LABORATORY | | [...] ST. | [address] | [place] | [phone] | | [facility] | | [address] | | | - LABORATORY | | [...] [address] | [place] | [phone] | | [facility] | | [address] | | | - LABORATORY | | [...] + | [facility] | [address] | [place] | [phone] | | [facility] | | [address] | | | - LABORATORY | | [...] ST. | [address] | [place] | [phone] | | [facility] | | [address] | | | - LABORATORY | | [...] + | [facility] | [address] | [place] | [phone] | | [facility] | | [address] | | | - LABORATORY | | [...] [address] | [place] | [phone] | | [facility] | | [address] | | | - LABORATORY | | [...] + | [facility] | [address] | [place] | [phone] | | [facility] | | [address] | | | - LABORATORY | | [...] mL/min/1.73m2 | [facility] | | | [place] | | | MEDICAL | | | [...] [address] | [place] | [phone] | | [facility] | | [address] | | | - LABORATORY | | [...] ST. | [address] | [place], [place] | [phone] | | [facility] | | [address] | | | - LABORATORY | | [...] | | | | | | | 6552-0304 Use NIGHT DOSE for | | | | | | | doses scheduled: HS, 3AM, | | | | | | | Nighttime 3580-1226, | | | | | | + [...] scheduled: AC, NPO, Daytime | | | 1515-8348 Use NIGHT DOSE for | | | doses scheduled: HS, 3AM, | | | Nighttime 5156-0178, | | + +---+ | | | [...]
--- OUTSIDE RECORDS SUMMARY | ~2019-09-08 | XMS | Encounter Summary ---
Demographics + + + | Address | [address] | | | [place] [address] | + + + | Home Phone [...] + | Author | [facility] | | | and [place]aljitana | + + + | Organization | [facility] | | | and [place] | + + + | Address | Unknown | + + + | Phone | Unavailable | + + + Support + + + + + | Name | Relationship | Address | Phone | + + + + + | India Tilley | ECON | [address] | | | | | [place], [place] | | | | | [address] | | + + + + + | Yina La | ECON | Unknown | | + + + + + | Yina Peterson | ECON | Unknown | | + + + + + | Leatha Casillas | ECON | Unknown | | + + + + + Care Team Providers + +------+ + | Care Windows Systems Administrator Name | Role | Phone | [...] + + | 02/04/ | Telephone | [facility] | Santos Stephenson | Post Op (dialysis | | 2017 | | SURGERY [address] | MD Kinga, FACS [address] | catheter fell out. ) | | | | [place], [place] | [address] [facility] | | | | | [address] | [place] [address] | | | | | [phone] | [phone] | | | | | | | [...]
--- OUTSIDE RECORDS SUMMARY | ~2019-09-08 | XMS | Encounter Summary ---
Demographics + + + | Address | [address] | | | [place] [address] | + + + | Home Phone [...] + | Author | [facility] | | | and Kam[place]jit[place] | + + + | Organization | [facility] | | | and [place] | + + + | Address | Unknown | + + + | Phone | Unavailable | + + + Support + + + + + | Name | Relationship | Address | Phone | + + + + + | India Tilley | ECON | [address] | | | | | [place], [place] | | | | | [address] | | + + + + + | Yina La | ECON | Unknown | | + + + + + | Yina [place] | ECON | Unknown | | + + + + + | Leatha Casillas | ECON | Unknown | | + + + + + Care Team Providers + +------+ + | Care Electronics Design Engineer Name | Role | Phone [...] | | | | renal | PA-C [address] | [address] [place] [address] | | | | | disease | | [place] | | | | | ([facility]) | CONFEDERATED | [address] | | | | | Procedures | WAY | [place] | | | | | [place] OFFICE | [place], | [address] Phone: | | | | | OUTPATIENT | [place] [address] | [phone] | | | | | VISIT 25 | Phone: | Fax: | | | | | [place] | [phone] | [phone] | | | | | ESRD RELATED | Fax: | | | | | | SVC MONTHLY | [phone] | | | | | | 20&/> YR | | | | | | | OLD 4/> | | | | | | | VISITS | | | +--------+--------+ + + + + Encounter Details +--------+ + + + + | Date | Type | Department | Care Team | Description | +--------+ + + + + | 07/11/ | Off-Site | [facility] | Gopi Muñoz | End stage renal | | 2018 | Visit | NEPHROLOGY [address] | M, DO [address] | disease (HCC) | | | | [address] | [place] [place] [address] | (Primary Dx) | | | | [place], [place] | [place], [place] | | | | | [address] | [address] | | | | | [phone] | | | +--------+ + + + [...]
--- OUTSIDE RECORDS SUMMARY | ~2019-09-08 | XMS | Encounter Summary ---
Demographics + + + | Address | [address] | | | [place] [address] | + + + | Home Phone [...] [facility] | | | and Kam[place]itana | + + + | Organization | [facility] | | | and [place] | + + + | Address | Unknown | + + + | Phone | Unavailable | + + + Support + + + + + | Name | Relationship | Address | Phone | + + + + + | India Tilley | ECON | [address] | | | | | [place], [place] | | | | | [address] | | + + + + + | Yina La | ECON | Unknown | | + + + + + | Yina [place] | ECON | Unknown | | + + + + + | Leatha Casillas | ECON | Unknown | | + + + + + Care Team Providers + +------+ + | Care Recreational Sports Director Name | Role | Phone | [...] [address] | | | | | [address] [facility] | [place] | | | | | [place] | [address] | | | | | [address] | | | | | | [phone] | | | +--------+--------+ + + + [...]
--- OUTSIDE RECORDS SUMMARY | ~2019-09-08 | XMS | Encounter Summary ---
Demographics + + + | Address | [address] | | | [place] [address] | + + + | Home Phone [...] Author | [facility] | | | and Kamal[place]it[place] | + + + | Organization | [facility] | | | and [place] | + + + | Address | Unknown | + + + | Phone | Unavailable | + + + Support + + + + + | Name | Relationship | Address | Phone | + + + + + | India Tilley | ECON | [address] | | | | | [place], [place] | | | | | [address] | | + + + + + | Yina La | ECON | Unknown | | + + + + + | Yina [place] | ECON | Unknown | | + + + + + | Leatha Casillas | ECON | Unknown | | + + + + + Care Team Providers + +------+ + | Care Mission Planner Name | Role | Phone | + +------+ + | Renato Pierson VIDEO TAPE TRANSFERRER | PCP | | + +------+ + [...] | | disease) on | [address] | [place], [place] | | | | | dialysis | [address] | [address] | | | | | ([facility]) | [address] | Phone: | | | | | Procedures | [place], [place] | [phone] | | | | | IR Inj | [address] | Fax: | | | | | Dialysis | Phone: | | | | | | Circuit | [phone] | | | | | | | Fax: | | | | | | | [phone] | | + +--------+ + + + + Reason for Visit + + + | Reason | Comments | + + + | Procedure | | + + + Encounter Details +--------+ + + + + | Date | Type | Department | Care Team | Description | +--------+ + + + + | 07/31/ | Telephone | [facility] | Louise Fink, | Procedure | | 2019 | | VASCULAR SURGERY | RN | | | | | [address] | | | | | | [place] | | | | | | [address] | | | | | | [phone] | | | +--------+ + + + [...]
--- OUTSIDE RECORDS SUMMARY | ~2019-09-08 | XMS | Encounter Summary ---
Demographics + + + | Address | [address] | | | [place] [address] | + + + | Home Phone [...] | Author | [facility] | | | and [place] | + + + | Organization | [facility] | | | and [place] | + + + | Address | Unknown | + + + | Phone | Unavailable | + + + Support + + + + + | Name | Relationship | Address | Phone | + + + + + | India Tilley | ECON | [address] | | | | | [place], [place] | | | | | [address] | | + + + + + | Yina La | ECON | Unknown | | + + + + + | Yina [place] | ECON | Unknown | | + + + + + | Leatha Casillas | ECON | Unknown | | + + + + + Care Team Providers + +------+ + | Care Health Care Sanitary Technician Name | Role | Phone | [...] NEPHROLOGY [address] | M, DO [address] | | | | | [address] | [place] | | | | | [place] | [place] | | | | | [address] | [address] | | | | | [phone] | | | +--------+ + + + [...] PM PDT Subjective: DIALYSIS NOTE Patient ID: sEtefani Tilley is a 74 y.o. female. HPI [...] HD in 018and then was DC to [facility] [place]. Unfortunat brandy, she has had intermittent [...] Gopi Muñoz DO. 07/30/19 3:11 PM CC: [facility], [place], [place] [facility], [place], [place]. document ed in this encounter Plan of Treatment Not on filedocumented as of this encounter Visit Diagnoses + + | Diagnosis | + + | ESRD (end stage renal disease) on dialysis (HCC) - Primary End stage renal disease | + + documented in this encounter
--- OUTSIDE RECORDS SUMMARY | ~2019-09-08 | XMS | Encounter Summary ---
Demographics + + + | Address | [address] | | | [place] [address] | + + + | Home Phone [...] | Author | [facility] | | | and [place] | + + + | Organization | [facility] | | | and [place] | + + + | Address | Unknown | + + + | Phone | Unavailable | + + + Support + + + + + | Name | Relationship | Address | Phone | + + + + + | India Tilley | ECON | [address] | | | | | [place], [place] | | | | | [address] | | + + + + + | Yina La | ECON | Unknown | | + + + + + | Yina [place] | ECON | Unknown | | + + + + + | Leatha Casillas | ECON | Unknown | | + + + + + Care Team Providers + +------+ + | Care Winch Truck Operator Name | Role | Phone | [...] + + | 06/14/ | Telephone | [facility] | Tabatha Patel, | Care Coordination | | 2019 | | INFECTIOUS DISEASE | Medical Practice Assistant | (Patient Timeline - | | | | [address] | | Line Care/Provider | | | | [place], [place] | | Management ) | | | | [address] | | | | | | [phone] | | | +--------+ + + + [...]
--- OUTSIDE RECORDS SUMMARY | ~2019-09-08 | XMS | Encounter Summary ---
Demographics + + + | Address | [address] | | | [place] [address] | + + + | Home Phone [...] [facility] | | | and [place] | + + + | Organization | [facility] | | | and [place] | + + + | Address | Unknown | + + + | Phone | Unavailable | + + + Support + + + + + | Name | Relationship | Address | Phone | + + + + + | India Tilley | ECON | [address] | | | | | [place], [place] | | | | | [address] | | + + + + + | Yina La | ECON | Unknown | | + + + + + | Yina [place] | ECON | Unknown | | + + + + + | Leatha Casillas | ECON | Unknown | | + + + + + Care Team Providers + +------+ + | Care Associate Professor Of Chemistry Name | Role | Phone | + [...] + + | 03/23/ | Emergency | [facility] | Carlos Baker | Osteomyelitis, | | 2019 - | | MED CTR EMERGENCY | MD Venkatesh [address] | unspecified site, | | | | CENTER [address] | [address] [place] | unspecified type | | 03/24/ | | [place], [place] | [place] [address] | ([facility]ERLY [facility]) (Primary Dx); | | 2018 | | [address] | [phone] | Acute midline | | | | [phone] | | thoracic back pain; | | [...] | | ([facility]), Right hip | | | | | [...] R?MRN: | | | | | | [id number] | | | [id number] | | | riteri | | | [...] | | | St. | | | [place] | | | y | | | [...] | | | [facility] | | | [place] | | | 3 0 | | | [facility] | | | St[facility] | | | [place] | | | y | | | [...] | | | St. | | | [place] | | | y H. | | [...] | | e of | | | [place] | | | | | | [place] [...] | | | St. | | | [place] | | | y H. | | [...] the | | | | | | nursing secretary | | | al | | | [...] | | | St. | | | [place] | | | y H. | | [...] | | e of | | | [place] | | | | | | mckeon [...] | | | [facility] | | | [place] | | | [place] | | | ID | | | [...] | | | [facility] | | | [place] | | | [place] | | | ID | | | [...] | | | [facility] | | | [place] | | | [place] | | | ID | | | [...] | | | [facility] | | | [place] | | | [place] | | | ID | | | [...] | | | [facility] | | | [place] | | | [place] | | | ID | | | [...] | | | [facility] | | | [facility] | | | | | | HE[facility] [...] | | | [id number] | | | [id number] | | | [address] | | | [...] ST. | [address] | [place], [place] | [phone] | | [facility] | | [address] | | | - LABORATORY | | [...] + | [facility] | [address] | [place] | [phone] | | [facility] | | [address] | | | - LABORATORY | | [...] + | [facility] | [address] | [place] | [phone] | | [facility] | | [address] | | | - LABORATORY | | [...] [address] | [place] | [phone] | | [facility] | | [address] | | | - LABORATORY | | [...] 3.78 (H) | 0.55 - 1.02 | [facility] | | | | | mg/dL | [facility] | | | | | | MEDICAL | | | | | | CENTER - | | | | | | LABORATORY | | + + + + + + | eGFR if not | 12 (L)Comment: | >=60 | [facility] | | | | GLOMERULAR FILTRATION | mL/min/1.73m2 | [facility] | | | MALAYSIAN | RATE,ESTIMATED | | MEDICAL | | | | mL/min/1.66i5Zxsj than | | CENTER - | | [...] [address] | [place] | [phone] | | [facility] | | [address] | | | - LABORATORY | | [...] [address] | [place] | [phone] | | [facility] | | [address] | | | - LABORATORY | | [...] [address] | [place] | [phone] | | [facility] | | [address] | | | - LABORATORY | | [...] lymphadenopathy. | | | LUNGS:There is a jrpqg-bu-yzascxps layering left pleural effusion. | | | [...] or hilar | | lymphadenopathy.LUNGS:There is a sfsay-zx-mvmhhmkn layering left pleural effusion. | | There [...] very highly suspicious for osteomyelitis/discitis at the R77-[id number].Small to | | moderate layering left pleural [...] | | | | PRN, Other, Starting [facility] 03/23/19 | | PM PDT | | | | | at 2031, For 1 dose, MRI | | | | | | + +-------+ +-------+---+---+ +---+---+ | | | +---+---+ + +-------+ +--------+---+---+ | LORazepam (ATIVAN) injection | Given | 03/23/20 | 0.5 mg | | | | 0.5 mg 0.5 mg, Intravenous, | | 19 8:22 | | | | | ONCE, [facility] 03/23/19 at 2014, For 1 | | [...] | | | | 90 Minutes, ONCE, [facility] 03/23/19 at | | | | | | | 2240, For 1 dose, Keep in | | | | | | | refrigerator., Indications: | | | | | | | Osteomyelitis | | | | | | + +---------+ + +-------+---+ + +---+ | | | + +---+ | vancomycin per pharmacy | | | PHARMACY CONSULT, Starting [facility] | | | 03/23/19 at 2229, Indications: | | | Osteomyelitis | | + +---+ | | | + +---+ documented in this encounter
--- OUTSIDE RECORDS SUMMARY | ~2019-09-08 | XMS | Encounter Summary ---
Demographics + + + | Address | [address] | | | [place] [address] | + + + | Home Phone [...] Author | [facility] | | | and [place]it[place] | + + + | Organization | [facility] | | | and [place] | + + + | Address | Unknown | + + + | Phone | Unavailable | + + + Support + + + + + | Name | Relationship | Address | Phone | + + + + + | India Tilley | ECON | [address] | | | | | [place], [place] | | | | | [address] | | + + + + + | Yina La | ECON | Unknown | | + + + + + | Yina [place] | ECON | Unknown | | + + + + + | Leatha Casillas | ECON | Unknown | | + + + + + Care Team Providers + +------+ + | Care Correctional Sergeant Name | Role | Phone | + +------+ + PCP | Unavailable | + +------+ + Encounter Details +--------+ + + + + | Date | Type | Department | Care Team | Description | +--------+ + + + + | 01/04/ | Anesthesia | [facility] | Lyndsay Mckeon, | | | 2018 | Event | MED CTR OR INTRA OP | DO [address] | | | | | [address] | [place] | | | | | [place] | [phone] | | | | | [address] | | | | | | [phone] | Vinnie Last MD | | | | | | [address] | | | | | | [place] | | | | | | [address] | | | | | | | [...] +----+---+ + + | | 1 | [place] | | | | 3 | 43-degrees | | | | 2 | | | | | 1 | | | +----+---+ + + | | 1 | First | | | | 3 | Inc/Proc St | | | | 2 | | | | | 8 | | | +----+---+ + + | | 1 | [place] off | | | | 5 | [...] 01/04/18 1728 by | | eral | kofi-xzb-gtsdxc catheter system; | Linh Gamez RN | [...] - | healing within expectations; | Wendy hZu RN | Micki Young, | | | [...]
--- OUTSIDE RECORDS SUMMARY | ~2019-09-08 | XMS | Encounter Summary ---
Demographics + + + | Address | [address] | | | [place] [address] | + + + | Home Phone [...] | Author | [facility] | | | and Kamal[place]it[place] | + + + | Organization | [facility] | | | and [place] | + + + | Address | Unknown | + + + | Phone | Unavailable | + + + Support + + + + + | Name | Relationship | Address | Phone | + + + + + | India Tilley | ECON | [address] | | | | | [place], [place] | | | | | [address] | | + + + + + | Yina La | ECON | Unknown | | + + + + + | Yina [place] | ECON | Unknown | | + + + + + | Leatha Casillas | ECON | Unknown | | + + + + + Care Team Providers + +------+ + | Care Skate Shop Attendant Name | Role | Phone | [...] + + | 06/01/ | Telephone | [facility] | Gopi Muñoz | Other | | 2019 | | NEPHROLOGY [address] | M, DO [address] | | | | | [address] [facility] [address] | [place], [facility] [address] | | | | | [place], [place] | [place] | | | | | [address] | [address] | | | | | [phone] | | | +--------+ + + + [...]
--- OUTSIDE RECORDS SUMMARY | ~2019-09-08 | XMS | Encounter Summary ---
Demographics + + + | Address | [address] | | | [place] [address] | + + + | Home Phone [...] | Author | [facility] | | | and Kamal[place]it[place] | + + + | Organization | [facility] | | | and [place] | + + + | Address | Unknown | + + + | Phone | Unavailable | + + + Support + + + + + | Name | Relationship | Address | Phone | + + + + + | India Tilley | ECON | [address] | | | | | [place], [place] | | | | | [address] | | + + + + + | Yina La | ECON | Unknown | | + + + + + | Yina [place] | ECON | Unknown | | + + + + + | Leatha Casillas | ECON | Unknown | | + + + + + Care Team Providers + +------+ + | Care Shank Turner Name | Role | Phone | [...] | [address] | [address], [place] | | | | | [place] | [address] [place] | | | | | [address] | [address] | | | | | [phone] | | | +--------+ + + + [...] PDTOutside record: Renal ultrasound, dos: 03/29/17. From [facility]. Sent to scan.Electronically signed by Tatiana Rendon at 03/29 4:46 PM PDTdocumented in this encounter Plan of Treatment Not on filedocumented as of this encounter Visit Diagnoses Not on filedocumented in this encounter"
--- OUTSIDE RECORDS SUMMARY | ~2019-09-08 | XMS | Encounter Summary ---
Demographics + + + | Address | [address] | | | [place] [address] | + + + | Home Phone [...] | Author | [facility] | | | and [place] | + + + | Organization | [facility] | | | and [place] | + + + | Address | Unknown | + + + | Phone | Unavailable | + + + Support + + + + + | Name | Relationship | Address | Phone | + + + + + | India Tilley | ECON | [address] | | | | | [place], [place] | | | | | [address] | | + + + + + | Yina La | ECON | Unknown | | + + + + + | Yina [place] | ECON | Unknown | | + + + + + | Leatha Casillas | ECON | Unknown | | + + + + + Care Team Providers + +------+ + | Care Citizenship Teacher Name | Role | Phone | [...] + + | 01/05/ | Telephone | [facility] | Santos Stephenson | Appointment | | 2017 | | SURGERY [address] | MD Kinga, [address] | | | | | [place], [place] | [address] [facility] | | | | | [address] | [place] [address] | | | | | [phone] | [phone] | | | | | | | [...]
--- OUTSIDE RECORDS SUMMARY | ~2019-09-08 | XMS | Encounter Summary ---
Demographics + + + | Address | [address] | | | [place] [address] | + + + | Home Phone [...] Author | [facility] | | | and [place] | + + + | Organization | [facility] | | | and [place] | + + + | Address | Unknown | + + + | Phone | Unavailable | + + + Support + + + + + | Name | Relationship | Address | Phone | + + + + + | India Tilley | ECON | [address] | | | | | [place], [place] | | | | | [address] | | + + + + + | Yina La | ECON | Unknown | | + + + + + | Yina [place] | ECON | Unknown | | + + + + + | Leatha Casillas | ECON | Unknown | | + + + + + Care Team Providers + +------+ + | Care Credit Intern Name | Role | Phone | [...] + + | 12/29/ | Telephone | [facility] | Santos Stephenson | Appointment | | 2017 | | SURGERY [address] | MD Kinga, [address] | | | | | [place], [place] | [address] [facility] | | | | | [address] | [place] [address] | | | | | [phone] | [phone] | | | | | | | [...]
--- OUTSIDE RECORDS SUMMARY | ~2019-09-08 | XMS | Encounter Summary ---
Demographics + + + | Address | [address] | | | [place] [address] | + + + | Home Phone [...] | [facility] | | | and Kamaljitana | + + + | Organization | [facility] | | | and [place] | + + + | Address | Unknown | + + + | Phone | Unavailable | + + + Support + + + + + | Name | Relationship | Address | Phone | + + + + + | India Tilley | ECON | [address] | | | | | [place], [place] | | | | | [address] | | + + + + + | Yina La | ECON | Unknown | | + + + + + | Yina [place] | ECON | Unknown | | + + + + + | Leatha Casillas | ECON | Unknown | | + + + + + Care Team Providers + +------+ + | Care Intertype Operator Name | Role | Phone | + +------+ + PCP | Unavailable | + +------+ + Encounter Details +--------+ + + + + | Date | Type | Department | Care Team | Description | +--------+ + + + + | 05/26/ | Abstract | [facility] | Darlin Moseley W, | | | 2016 | | NEPHROLOGY [address] | [address] | | | | | [address] | [address] [address] [facility] | | | | | [place] | [place] [address] | | | | | [address] | [phone] | | | | | [phone] | | | +--------+ + + + [...] 1.012 | | EXTERNAL | | | [place], | | | LAB | | | [...]
--- OUTSIDE RECORDS SUMMARY | ~2019-09-08 | XMS | Encounter Summary ---
Demographics + + + | Address | [address] | | | [place] [address] | + + + | Home Phone [...] | Author | [facility] | | | and Kamal[place]it[place] | + + + | Organization | [facility] | | | and [place] | + + + | Address | Unknown | + + + | Phone | Unavailable | + + + Support + + + + + | Name | Relationship | Address | Phone | + + + + + | India Tilley | ECON | [address] | | | | | [place], [place] | | | | | [address] | | + + + + + | Yina La | ECON | Unknown | | + + + + + | Yina [place] | ECON | Unknown | | + + + + + | Leatha Casillas | ECON | Unknown | | + + + + + Care Team Providers + +------+ + | Care Assistant Art Director Name | Role | Phone | [...] [place]) | | | | | | | [...] [place]) | | | | | | | [...] + + | 02/04/ | Emergency | [facility] | [place], | Complications, | | 2018 - | | MED CTR SURGICAL | Venkatesh Esteban MD [address] | dialysis, catheter, | | | | [address] [place] | [address] [place] | mechanical, initial | | 02/05/ | | [place] [address] | [place] [address] | encounter ([facility]) | | 2018 | | [phone] | [phone] | (Primary Dx); End | | | | | | stage renal disease | | | | | Heather Navarro, | ([facility]) | | | | | [address] | | | | | | [place], [place] | | | | | | [id number] | | | | | | | [...] Office Phone Number to Contact Dr Navarro: [phone] Navarro's Office to schedule a follow up visit as needed - you will follow up with Dr Stephenson and at the dialysis center. Our office is located in the [facility] next door to Urgent Care. Other [...] Wednesday 9:00-2:00PM. Call the General Surgery Office [phone] for the following: Persistent vomiting Diarrhea lasting [...] as possible. Limit sports and strenuous activities [id number]. Shower as usual. Gently wash around your [...] ST. | [address] | [place], [place] | [phone] | | [facility] | | [address] | | | - LABORATORY | | [...] disease in the chest.Dictated and Signed by: Rloan Orellana MD Electronically | | signed: 02/04/2018 [...] ST[address] | [address] | [place], [place] | [phone] | | [facility] | | [address] | | | - LABORATORY | | [...] 3.57 (H) | 0.60 - 1.30 | [facility] | | | | | mg/dL [...] mL/min/1.73m2 | [facility] | | | [place] | RATE,ESTIMATED | | MEDICAL | | | | mL/min/1.40l5Evqb than | | CENTER - | | [...] [address] | [place] | [phone] | | [facility] | | [address] | | | - LABORATORY | | [...] [address] | [place] | [phone] | | [facility] | | [address] | | | - LABORATORY | | | | + + + + + documented in this encounter Visit Diagnoses + + | Diagnosis | + + | Complications, dialysis, catheter, mechanical, initial encounter ([facility]) - Primary | + + | End stage renal disease ([facility]) End stage renal disease | + + [...] agent. | | | Ondansetron IV is yard switcher | | | out. If patient cannot [...]
--- OUTSIDE RECORDS SUMMARY | ~2019-09-08 | XMS | Encounter Summary ---
Demographics + + + | Address | [address] | | | [place] [address] | + + + | Home Phone [...] + | Author | [facility] | | | and [place] | + + + | Organization | [facility] | | | and [place] | + + + | Address | Unknown | + + + | Phone | Unavailable | + + + Support + + + + + | Name | Relationship | Address | Phone | + + + + + | India Tilley | ECON | [id number] | | | | | [place], [place] | | | | | [address] | | + + + + + | Yina La | ECON | Unknown | | + + + + + | Yina Peterson | ECON | Unknown | | + + + + + | Leatha Casillas | ECON | Unknown | | + + + + + Care Team Providers + +------+ + | Care Special Day Class Teacher Name | Role | Phone | + +------+ + PCP | Unavailable | + +------+ + Encounter Details +--------+ + + + + | Date | Type | Department | Care Team | Description | +--------+ + + + + | 02/26/ | Hospital | [facility] | Patricia, | | | 2006 - | Encounter | [facility] | Venkatesh Forte MD [address] | | | | [place] [address] | [facility] | | | 03/12/ | | [place] | [place] [address] | | | 2006 | | [address] | [phone] | | | | | [phone] | | | +--------+ + + + [...]
--- OUTSIDE RECORDS SUMMARY | ~2019-09-08 | XMS | Encounter Summary ---
Demographics + + + | Address | [address] | | | [place] [address] | + + + | Home Phone [...] | Author | [facility] | | | and [place] | + + + | Organization | [facility] | | | and [place] | + + + | Address | Unknown | + + + | Phone | Unavailable | + + + Support + + + + + | Name | Relationship | Address | Phone | + + + + + | India Tilley | ECON | [id number] | | | | | [place], [place] | | | | | [address] | | + + + + + | Yina La | ECON | Unknown | | + + + + + | Yina Peterson | ECON | Unknown | | + + + + + | Leatha Casillas | ECON | Unknown | | + + + + + Care Team Providers + +------+ + | Care Top Printing Press Operator Name | Role | Phone [...] | CONVERSION [address] | MD [address] [facility] | | | | | [address] | [place], [place] | | | | | [place], [place] | [address] | | | | | [address] | | | | | | [phone] | | | +--------+ + + + [...]
--- OUTSIDE RECORDS SUMMARY | ~2019-09-08 | XMS | Encounter Summary ---
Demographics + + + | Address | [address] | | | [place] [address] | + + + | Home Phone [...] | Author | [facility] | | | and [place] | + + + | Organization | [facility] | | | and [place] | + + + | Address | Unknown | + + + | Phone | Unavailable | + + + Support + + + + + | Name | Relationship | Address | Phone | + + + + + | India Tilley | ECON | [phone] | | | | | [place], [place] | | | | | [address] | | + + + + + | Yina La | ECON | Unknown | | + + + + + | Yina Peterson | ECON | Unknown | | + + + + + | Leatha Casillas | ECON | Unknown | | + + + + + Care Team Providers + +------+ + | Care Director Orange Name | Role | Phone | + [...] DERICK | | | | | [address] [facility] | [place] | | | | | [place] | [address] | | | | | [address] | | | | | | [phone] | | | +--------+--------+ + + + [...]
--- OUTSIDE RECORDS SUMMARY | ~2019-09-08 | XMS | Encounter Summary ---
Demographics + + + | Address | [address] | | | [place] [address] | + + + | Home Phone [...] + + | Author | [facility] | | | and [place] | + + + | Organization | [facility] | | | and [place] | + + + | Address | Unknown | + + + | Phone | Unavailable | + + + Support + + + + + | Name | Relationship | Address | Phone | + + + + + | India Tilley | ECON | [address] | | | | | [place], [place] | | | | | [address] | | + + + + + | Yina La | ECON | Unknown | | + + + + + | Yina Peterson | ECON | Unknown | | + + + + + | Leatha Casillas | ECON | Unknown | | + + + + + Care Team Providers + +------+ + | Care Record Press Supervisor Name | Role | Phone | + +------+ + | Renato Pierson [employer] | PCP | | + +------+ + Encounter Details +--------+ + + + + | Date | Type | Department | Care Team | Description | +--------+ + + + + | 05/18/ | Orders Only | [facility] | Maribeth Vaughan | 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 | | [address] | Y, Tooling Supervisor | intervertebral disc | | | | [place] | | (pyogenic), thoracic | | | | [address] | | region ([facility]); | | | | [phone] | | Osteomyelitis of | | | | | | thoracic vertebra | | | | | | ([facility]) | +--------+ + + + + Social [...] section. | | | | | region ([facility]) | | | | | | Osteomyelitis [...] section. | | | | | region ([facility]) | | | | | | Osteomyelitis of | | | | | | thoracic vertebra | | | | | | ([facility]) | | + +--------+ + + + | C-REACTIVE PROTEIN | Routin | 05/18/2019 | Infection of | Results for this | | | e | 3:45 PM | intervertebral disc | procedure are in the | | | | PDT | (pyogenic), thoracic | results section. | | | | | region ([facility]) | | | | | | Osteomyelitis of | | | | | | thoracic vertebra | | | | | | ([facility]) | | + +--------+ + + + | COMPREHENSIVE | Routin | 05/18/2019 | Infection of | Results for this | | METABOLIC PANEL | e | 3:45 PM | intervertebral disc | procedure are in the | | | | PDT | (pyogenic), thoracic | results section. | | | | | region ([facility]) | | | | | | Osteomyelitis of | | | | | | thoracic vertebra | | | | | | ([facility]) | | + +--------+ + + + | CULTURE, BLOOD | Routin | 05/18/2019 | Infection of | Results for this | | | e | 3:08 PM | intervertebral disc | procedure are in the | | | | PDT | (pyogenic), thoracic | results section. | | | | | region ([facility]) | | | | | | Osteomyelitis of | | | | | | thoracic vertebra | | | | | | ([facility]) | | + +--------+ + + + [...] | | | Absolute | performed at [facility];[address] | [address] | LAB | | | | [place] | | [facility] | | | | [address];[place] [address] | | LABORATORY | | + + + + + + + + | Specimen | + + | Blood | + + + + + + + | Performing | Address | City/State/Zipcode | Phone Number | | Organization | | | | + + + + + | REFERENCE LAB | [address] | [place] [address] | [phone] | | [facility] | Blvd. | | | | LABORATORY | | | | + + + + + | REFERENCE LAB | [address] | [place] [address] | | | [facility] | Blvd. | [...] | | | | | performed at [facility];[address] | | | | | | [address] | | | | | | [address];[place] [address] | | | | | | | | | | + + + + + + + + | Specimen | + + | Blood | + + + + + + + | Performing | Address | City/State/Zipcode | Phone Number | | Organization | | | | + + + + + | REFERENCE LAB | [address] | [place] [address] | [phone] | | [facility] | Blvd. | | | | LABORATORY | | | | + + + + + | REFERENCE LAB | [address] | [place] [address] | | | [facility] | Blvd. | [...] REFERENCE | | | | performed at [facility];[address] | | LAB | | | | [place] | | [facility] | | | | [address];[place] [address] | | LABORATORY | | + + + + + + + + | Specimen | + + | Blood | + + + + + + + | Performing | Address | City/State/Zipcode | Phone Number | | Organization | | | | + + + + + | REFERENCE LAB | [address] [place] [address] | [place] [address] | [phone] | | [facility] | Blvd. | | | | LABORATORY | | | | + + + + + | REFERENCE LAB | [address] [place] [address] | [place] [address] | | | [facility] | Blvd. | [...] REFERENCE | | | | performed at [facility];[address] | | LAB | | | | [place] | | [facility] | | | | Bl[address];[place] [address] | | LABORATORY | | + + + + + + + + | Specimen | + + | Blood | + + + + + + + | Performing | Address | City/State/Zipcode | Phone Number | | Organization | | | | + + + + + | REFERENCE LAB | [address] | [place] [address] | [phone] | | [facility] | Blvd. | | | | LABORATORY | | | | + + + + + | REFERENCE LAB | [address] | [place] [address] | | | [facility] | Blvd. | [...] REFERENCE | | | | [facility];[address] [facility] [address] | | LAB | | | | Blvd;[place] | | [facility] | | | | [id number]: Testing | | LABORATORY | | | | performed at [facility], [address] | | | | | [address], | | | | | | [place] [address] | | | | + + + [...] + | REFERENCE LAB | [address] | [place] [address] | [phone] | | [facility] [employer] [facility] | Blvd. | | | | LABORATORY | | | | + + + + + | REFERENCE LAB | [address] | [place] [address] | | | [facility] | Blvd. | | | | LABORATORY [...]
--- OUTSIDE RECORDS SUMMARY | ~2019-09-08 | XMS | Encounter Summary ---
Demographics + + + | Address | [address] | | | [place] [address] | + + + | Home Phone [...] + | Author | [facility] | | | and [place] | + + + | Organization | [facility] | | | and [place] | + + + | Address | Unknown | + + + | Phone | Unavailable | + + + Support + + + + + | Name | Relationship | Address | Phone | + + + + + | India Tilley | ECON | [address] | | | | | [place], [place] | | | | | [address] | | + + + + + | Yina La | ECON | Unknown | | + + + + + | Yina Peterson | ECON | Unknown | | + + + + + | Leatha Casillas | ECON | Unknown | | + + + + + Care Team Providers + +------+ + | Care Energy Conservation Director Name | Role | Phone | [...] End stage | Nan Esteban, | Gopi Romna DO | | | | | renal | PA-C [address] | [address] [place] [address] | | | | | disease | | [address] | | | | | ([facility]) | CONFEDERATED | [address] | | | | | Procedures | WAY | [address] | | | | | [place] OFFICE | [place], | [address] Phone: | | | | | OUTPATIENT | [place] [address] | [phone] | | | | | VISIT 25 | Phone: | Fax: | | | | | MINUTES | [phone] | [phone] | | | | | | Fax: | | | | | | | [phone] | | +--------+--------+ + + + + Encounter Details +--------+ + + + + | Date | Type | Department | Care Team | Description | +--------+ + + + + | 04/25/ | Off-Site | [facility] | Gopi Muñoz | End stage renal | | 2018 | Visit | NEPHROLOGY [address] | M, DO [address] | disease (HCC) | | | | [address] | [place] | (Primary Dx) | | | | [address] | [address] | | | | | [address] | [address] | | | | | [phone] | | | +--------+ + + + [...] to HTN and diabetic glomerulosclerosis at the [facility]. She also has depression, long standing HTN, Type 2 DM, requiring insulin, and CKD/MBD. She has had successful construction of an AVF in her Right arm on 01/04/2018 . She has mult iple complaints including lack of family support, lack of housing, lack of disposable income . I asked her if she has been directly in touch with the CHR at the [facility], and she states that "she has not. " She will not provide a direct answer why she does not confer directly with [facility] for better resources? She de nies acute [...] candidate to get in touch with a [facility] bilingual call center representative at the [facility] for some immediate madiha tance. 2. [...] here in the [facility]. : [place]. Santos Stephenson MD, [facility] documented in thi s encounter Plan of Treatment Not on filedocumented as of this encounter Visit Diagnoses + + | Diagnosis | + + | End stage renal disease (HCC) - Primary End stage renal disease | + + documented in this encounter
--- OUTSIDE RECORDS SUMMARY | ~2019-09-08 | XMS | Encounter Summary ---
Demographics + + + | Address | [address] | | | [place] [address] | + + + | Home Phone [...] | Author | [facility] | | | and [place] | + + + | Organization | [facility] | | | and [place] | + + + | Address | Unknown | + + + | Phone | Unavailable | + + + Support + + + + + | Name | Relationship | Address | Phone | + + + + + | India Tilley | ECON | [address] | | | | | [place], [place] | | | | | [address] | | + + + + + | Yina La | ECON | Unknown | | + + + + + | Yina Peterson | ECON | Unknown | | + + + + + | Leatha Casillas | ECON | Unknown | | + + + + + Care Team Providers + +------+ + | Care Flight Engineer Performance Qualified Name | Role | Phone | + +------+ + PCP | Unavailable | + +------+ + Encounter Details +--------+ + + + + | Date | Type | Department | Care Team | Description | +--------+ + + + + | 06/15/ | Telephone | [facility] | Ibis Arriola | | | 2019 | | [facility] | L, RN | | | | | [address] | | | | | | [place] | | | | | | [address] | | | | | | [phone] | | | +--------+ + + + [...]
--- OUTSIDE RECORDS SUMMARY | ~2019-09-08 | XMS | Encounter Summary ---
Demographics + + + | Address | [address] | | | [place] [address] | + + + | Home Phone [...] | Author | [facility] | | | and Kamaljitana | + + + | Organization | [facility] | | | and [place] | + + + | Address | Unknown | + + + | Phone | Unavailable | + + + Support + + + + + | Name | Relationship | Address | Phone | + + + + + | India Campos | ECON | [address] | | | | | [place], [place] | | | | | [address] | | + + + + + | Yina La | ECON | Unknown | | + + + + + | Yina Peterson | ECON | Unknown | | + + + + + | Leatha Casillas | ECON | Unknown | | + + + + + Care Team Providers + +------+ + | Care Brake Drum Molder Name | Role | Phone | + [...] | | | | | [address] | [address] | | | | | [place], [place] | [place] [address] | | | | | [address] | [phone] | | | | | [phone] | | | +--------+---------+ + + + [...] Christina MD - 05/25/2019 11:24 AM PDT [place], [place] HOSPITALIST DISCHARGE SUMMARY Pt. 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 S/p thoracentesis wit h 1300cc fluid removed, studies c/w transudative effusion. Cytology negative for malignant c ells. No growth on culture thus far. Patient is on room air. Of note, recent echo in March sh owed normal EF. 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 SBP 200s on a rrival here. Blood pressure improved after HD, resumption of home medications. Amlodipine an d losartan also added, Nephrology will CTM as outpatient. #Acute metabolic encephalopathy Possibly 2/2 medication as patient received 1mg Ativan at OSH SHIPPING MANAGER. At baseline currently. #Recent osteomyelitis Patient [...] information: [address] [place] [address] Condition: stable Diet: renal, cc Greater than 30 minutes were spent on discharge and coordination of post-hospital care. Electronically signed by: Nora Christina MD, 05/25/2019 11:24 [facility] documented in this enco unter Discharge Instructions [...] will likely include a biopsy in the [facility] down the line. Nora Christina MD [...] Arthritis, Back pain, Breast cancer ([facility]), Cancer ([facility]), Diabetes ([facility]), Heart disease, Hemodialysis patient ([facility]), History of blood clots, Hypercholesteremia, Hypertensio n, Hypothyroidism, Renal failure, Seasonal allergies, and Stroke (cerebrum) ([facility]). . Risk fa ctors for [...] Culture, Body Fluid, Sterile, Smear, with Anaerobes [[id number]] Collected: 05/22/19 1509 Order Status: Sent Lab Status: In process Updated: 05/22/19 151 Specimen: Body Fluid from Pleural Fluid, Left Narrative: The following orders were created for panel order Culture, Body Fluid, Sterile, Smear, wit h Anaerobes. Procedure Abnormality Status --------- ------ Culture, Body Fluid, Aerobe[[id number]] Preliminary result Culture, Body Fluid, Bre...[[id number]] In process Please view results for these tests on the individual orders. Culture, Fungus, Smear [[id number]] Collected: 05/22/19 150 Order Status: Sent Lab Status: In process Updated: 05/22/19 151 Specimen: Body Fluid from Pleural Fluid, Left Culture, Body Fluid, Aerobe [[id number]] Collected: 05/22/19 150 Order Status: Completed Lab Status: Preliminary result Updated: 05/24/19 1038 Specimen: Body Fluid from Pleural Fluid, Left Culture No growth to date Gram Stain Result 4+ White Blood Cells No organisms seen Culture, Body Fluid, Anaerobe [[id number]] Collected: 05/22/19 150 Order Status: Resulted Lab Status: In process Updated: 05/22/19 151 Specimen: Body Fluid from Pleural Fluid, Left Culture, MRSA [[id number]] Collected: 05/20/192021 Order Status: Completed Lab Status: Final result Updated: 05/22/19 0753 Specimen: Tissue from Nares Culture Negative for MRSA by chromogenic agar method. 2+ Coagulase positive Staphylococcus Culture, Blood, 2nd Specimen [[id number]] Collected: 05/18/19 1548 Order Status: Completed Lab Status: Final result Updated: 1945 RESULT NO GROWTH 6 DAYS RESULT Testing performed at [facility];[address] [place] [address];[place] [address] Comment: Testing performed at [facility], [address] [place] [address], [place] [address] Culture, Blood [[id number]] Collected: 05/18/19 150 Order Status: Completed Lab Status: Final result Updated: 1945 Specimen: Blood from Antecubital, Right RESULT NO GROWTH 6 DAYS RESULT Testing performed at [facility];[address] [place] [address];[place] [address] Comment: Testing performed at [facility], [address], [place] [address] Culture, Blood [[id number]] Collected: 05/18/19 1447 Order Status: Canceled Lab [...] and htn Prior to admission dialysis schedule: [facility] Vancomycin Dosing in HD patients: Loading [...] ESR, Cxs, case with his previous ID Flask Carrier, Dr. Nick Miller MD . He recommends [...] Bx's here. Therefore, shai kearney confer with [facility], outpt. She was agreeable to staying one more nite for HD and clarif y AB regimen. Vanc. /Cefepime were given, IV, during discussion, after reviewing MRI report but before the phone conversation with Dr. Jung. BP control is better. Her Mental status is very clear. Also had HD x 5 hrs, 2K+, 35 HCO3 a nd tolerated well. [facility] Joo Rodriguez, Level[place] - 05/24/2019 3:46 PM PDT VANCOMYCIN PER PHARMACY PROTOCOL: AMS/Drug Name - Vancomycin Patient: Ara Campos [id number] Admit: 05/20/2019 20:16 RELEVANT ALLERGIES: Amoxicillin 74 yrs old female patient admitted on 05/20/2019 for shortness of breath. Patient is receiv ing vancomycin starting on 05/24/2019 for osteomyelitis. Patient has a past medical histor y of Anemia, Arthritis, Back pain, Breast cancer ([facility]), Cancer ([facility]), Diabetes ([facility]), Heart disease, Hemodialysis patient ([facility]), History of blood clots, Hypercholesteremia, Hypertensio n, Hypothyroidism, Renal failure, Seasonal allergies, and Stroke (cerebrum) ([facility]). . Risk fa ctors for [...] Culture, Body Fluid, Sterile, Smear, with Anaerobes [[id number]] Collected: 05/22/19 1505 Order Status: Sent Lab Status: In process Updated: 05/22/19 1517 Specimen: Body Fluid from Pleural Fluid, Left Narrative: The following orders were created for panel order Culture, Body Fluid, Sterile, Smear, wit h Anaerobes. Procedure Abnormality Status --------- ------ Culture, Body Fluid, Aerobe[[id number]] Preliminary result Culture, Body Fluid, Bre...[[id number]] In process Please view results for these tests on the individual orders. Culture, Fungus, Smear [[id number]] Collected: 05/22/19 1509 Order Status: Sent Lab Status: In process Updated: 05/22/19 1510 Specimen: Body Fluid from Pleural Fluid, Left Culture, Body Fluid, Aerobe [[id number]] Collected: 05/22/19 1509 Order Status: Completed Lab Status: Preliminary result Updated: 05/24/19 1038 Specimen: Body Fluid from Pleural Fluid, Left Culture No growth to date Gram Stain Result 4+ White Blood Cells No organisms seen Culture, Body Fluid, Anaerobe [[id number]] Collected: 05/22/19 1509 Order Status: Resulted Lab Status: In process Updated: 05/22/19 151 Specimen: Body Fluid from Pleural Fluid, Left Culture, MRSA [[id number]] Collected: 05/20/192021 Order Status: Completed Lab Status: Final result Updated: 05/22/19 0753 Specimen: Tissue from Nares Culture Negative for MRSA by chromogenic agar method. 2+ Coagulase positive Staphylococcus Culture, Blood, 2nd Specimen [[id number]] Collected: 05/18/19 1548 Order Status: Completed Lab Status: Final result Updated: 05/24/19 0546 RESULT NO GROWTH 6 DAYS RESULT Testing performed at [facility];[address] [place] [address] Comment: Testing performed at [facility], [address] [place] [address] Culture, Blood [[id number]] Collected: 05/18/19 1508 Order Status: Completed Lab Status: Final result Updated: 05/24/19 0546 Specimen: Blood from Antecubital, Right RESULT NO GROWTH 6 DAYS RESULT Testing performed at [facility];[address] [place] [address] Comment: Testing performed at [facility], [address] [place] [address] Culture, Blood [[id number]] Collected: 05/18/19 1447 Order Status: Canceled Lab [...] BP elevated Prior to admission dialysis schedule: [facility] Vancomycin Dosing in HD patients: Loading [...] Monitoring Protocol Electronically signed by: Joo Bo, Levelman 05/24/2019 15:46Electroni terri signed by Joo Bo, Levelman at 05/24/2019 4:49 PM Kwame Guerin MD - 05/24/2019 11:04 AM PDTFormatting of this note might be different from the origin al[facility] [facility] PROGRESS NOTE Patient: Ara Campos : 1945: Age: 74 y.o. MedRec: [id number] Admission date: 05/20/2019 Hospital day # : [...] as patient received 1mg Ativan at OSH SHIPPING MANAGER. At baseline currently. #Recent osteomyelitis Patient admitted 03/24- with T11-12 osteomyelitis and completed 6 weeks vanc/cefepime. Rep eat MRI again redemonstrated possible osteomyelitis - vanc and cefepime have been resumed, Deepa Muñoz is discussing case with ID. #Diabetes Blood sugars at goal. CCM. Patient is again very upset about the food provided at the [facility] and is eating little to no food [...] Culture, Body Fluid, Sterile, Smear, with Anaerobes [[id number]] Collected: 05/22/19 150 Order Status: Sent Lab Status: In process Updated: 05/22/19 151 Specimen: Body Fluid from Pleural Fluid, Left Narrative: The following orders were created for panel order Culture, Body Fluid, Sterile, Smear, wit h Anaerobes. Procedure Abnormality Status --------- ------ Culture, Body Fluid, Aerobe[[id number]] Preliminary result Culture, Body Fluid, Bre...[[id number]] In process Please view results for these tests on the individual orders. Culture, Fungus, Smear [[id number]] Collected: 05/22/191508 Order Status: Sent Lab Status: In process Updated: 05/22/19 151 Specimen: Body Fluid from Pleural Fluid, Left Culture, Body Fluid, Aerobe [[id number]] Collected: 05/22/19 150 Order Status: Completed Lab Status: Preliminary result Updated: 05/24/19 1038 Specimen: Body Fluid from Pleural Fluid, Left Culture No growth to date Gram Stain Result 4+ White Blood Cells No organisms seen Culture, Body Fluid, Anaerobe [[id number]] Collected: 05/22/191508 Order Status: Resulted Lab Status: [...] rate 6L/min Nora Christina MD 05/24/2019 11:04 [facility] Michelle Solorzano Phar mD - [...] ? Pharmacy list names: [facility] ([place]) ? [employer] insurance reported information Vaccines up [...] Tobacco & Alcohol use/frequency: ? Recreational substances: [id number] asked how much or how often patient sta rich "I smoke as much as I want" Other: No changes to SHIPPING MANAGER list, due to the fact that patient was very non compliant. She either di d not want to take her medications, or she stated that she did not know if she was taking th em. She did not want to do the interview. Best possible SHIPPING MANAGER medication list after pharmacy review: Medication review performed and electronically signed by Kerry Jordan, Flight Test Data Acquisition Technician 05/23/2019 16:20 Reviewed by Michelle Ochoa PharmD 05/23/2019 18:26 Nora Guerin MD - 05/23/2019 3:20 PM PDT [facility] [place] HOSPITALIST PROGRESS NOTE Patient: Ara Campos : 1945: Age: 74 y.o. MedRec: [id number] Admission date: 05/20/2019 Hospital day # : [...] as patient received 1mg Ativan at OSH SHIPPING MANAGER. At baseline currently. #Recent osteomyelitis Patient [...] Daily Olegario maradiaga MD 2,000 Units at 05/23/19 0835 [...] Culture, Body Fluid, Sterile, Smear, with Anaerobes [[id number]] Collected: 05/22/19 1504 Order Status: Sent Lab Status: In process Updated: 05/22/191512 Specimen: Body Fluid from Pleural Fluid, Left Narrative: The following orders were created for panel order Culture, Body Fluid, Sterile, Smear, wit h Anaerobes. Procedure Abnormality Status --------- ------ Culture, Body Fluid, Aerobe[[id number]] Preliminary result Culture, Body Fluid, Bre...[[id number]] In process Please view results for these tests on the individual orders. Culture, Fungus, Smear [[id number]] Collected: 05/22/19 1509 Order Status: Sent Lab Status: In process Updated: 05/22/19 1510 Specimen: Body Fluid from Pleural Fluid, Left Culture, Body Fluid, Aerobe [[id number]] Collected: 05/22/19 150 Order Status: Completed Lab Status: Preliminary result Updated: 05/23/19 09 Specimen: Body Fluid from Pleural Fluid, Left Culture No growth to date Gram Stain Result 4+ White Blood Cells No organisms seen Culture, Body Fluid, Anaerobe [[id number]] Collected: 05/22/19 150 Order Status: Resulted Lab Status: In process Updated: 05/22/19 151 Specimen: Body Fluid from Pleural Fluid, Left Culture, MRSA [[id number]] Collected: 05/20/192021 Order Status: Completed Lab Status: [...] rate 0.5L/min Nora Christina MD 05/23/2019 15:20 [facility] documented in this enco unter [...] [address] | [place] | [phone] | | [facility] | | [address] | | | - LABORATORY | | [...] [address] | [place] | [phone] | | [facility] | | [address] | | | - LABORATORY | | [...] (H) | 0.55 - 1.02 | [facility] | | | | | mg/dL | [facility] | | | | | | MEDICAL | | | | | | CENTER - | | | | | | LABORATORY | | + + + + + + | eGFR if not | 11 (L)Comment: | >=60 | [facility] | | | | GLOMERULAR FILTRATION | mL/min/1.73m2 | [facility] | | | [place] | RATE,ESTIMATED | | MEDICAL | | | | mL/min/1.24l5Hbtk than | | CENTER - | | [...] [address] | [place] | [phone] | | [facility] | | [address] | | | - LABORATORY | | [...] | [address] | [address] | [place] | [phone] | | [facility] | | [address] | | | - LABORATORY | | [...] [address] | [place] | [phone] | | [facility] | | [address] | | | - LABORATORY | | [...] + | [facility] | [address] | [place] | [phone] | | [facility] | | [address] | | | - LABORATORY | | [...] [address] | [place] | [phone] | | [facility] | | [address] | | | - LABORATORY | | [...] mL/min/1.73m2 | [facility] | | | [place] | RATE,ESTIMATED | | MEDICAL | | | | mL/min/1.48e7Zxku than | | CENTER - | | [...] [address] | [place] | [phone] | | [facility] | | [address] | | | - LABORATORY | | [...] | [address] | [place] | [phone] | | [facility] | | [address] | | | - LABORATORY | | [...] | [address] [facility] | [address] | [place] | [phone] | | [facility] | | [address] | | | - LABORATORY | | [...] | | POC | | | [facility] | | | | | [...] ST. | [address] | [place], [place] | [phone] | | [facility] | | [address] | | | - LABORATORY | | [...] [address] | [place] | [phone] | | [facility] | | [address] | | | - LABORATORY | | | | + + + + + POC Glucose (05/23/2019 6:39 AM PDT) + +-------+ + + + | Component | Value | Ref Range | Performed | Pathologist | | | | | At | Signature | + +-------+ + + + | Glucose, | 77 | 70 - 109 mg/dL | [facility] | | | POC | | | [...] ST. | [address] | [place], [place] | [phone] | | [facility] | | [address] | | | - LABORATORY | | [...] mL/min/1.73m2 | [facility] | | | [place] | RATE,ESTIMATED | | MEDICAL | | | | mL/min/1.67x0Wuzl than | | CENTER - | | [...] [address] | [place] | [phone] | | [facility] | | [address] | | | - LABORATORY | | [...] + | [facility] | [address] | [place] | [phone] | | [facility] | | [address] | | | - LABORATORY | | [...] [address] | [place] | [phone] | | [facility] | | [address] | | | - LABORATORY | | [...] [address] | [place] | [phone] | | [facility] | | [address] | | | - LABORATORY | | [...] + | [address] | [address] | [place] | [phone] | | [facility] | | [address] | | | - LABORATORY | | [...] REFERENCE LAB | | [place] [id number] Loader Operator Supervisor: Violette Mcconnell MD, Phone: | [facility] | | [phone] | | + + + + + + + + | Performing | Address | City/State/Zipcode | Phone Number | | Organization | | | | + + + + + | REFERENCE LAB | [address] | [place] [address] | [phone] | | [facility] | Drive [...] + | Performed at: 01 - [facility] [place] [address], | REFERENCE LAB | | [place], [place] [id number] Loader Operator Supervisor: Ernie Lee MD, Phone: | [facility] | | [phone] | | + + + + + + + + | Performing | Address | City/State/Zipcode | Phone Number | | Organization | | | | + + + + + | REFERENCE LAB | [address] | [place] [address] | [phone] | | [facility] | Drive [...] + | [facility] | [address] | [place] | [phone] | | [facility] | | [address] | | | - LABORATORY | | [...] [address] | [place] | [phone] | | [facility] | | [address] | | | - LABORATORY | | [...] + + | Performed at: 01 - [facility] [address], | REFERENCE LAB | | [place], [place] [id number] Loader Operator Supervisor: Ernie Lee MD, Phone: | [facility] | | [phone] Performed at: 02 - [address] | | | [place] [id number] Loader Operator Supervisor: Violette Mcconnell MD, | | | Phone: [phone] | | + + + + + + + + | Performing | Address | City/State/Zipcode | Phone Number | | Organization | | | | + + + + + | REFERENCE LAB | [address] | [place] [address] | [phone] | | [facility] | Drive [...] [address] | [place] | [phone] | | [facility] | | [address] | | | - LABORATORY | | [...] [address] | [place] | [phone] | | [facility] | | [address] | | | - LABORATORY | | [...] [address] | [place] | [phone] | | [facility] | | [address] | | | - LABORATORY | | [...] | | | POC | | | [facility] | | | | | | MEDICAL [...] [address] | [place] | [phone] | | [facility] | | [address] | | | - LABORATORY | | [...] (H) | 0.55 - 1.02 | [facility] | | | | | mg/dL | [facility] | | | | | | MEDICAL | | | | | | CENTER - | | | | | | LABORATORY | | + + + + + + | eGFR if not | 9 (L)Comment: GLOMERULAR | >=60 | [place] | | | | FILTRATION | mL/min/1.73m2 | [facility] | | | [place] | RATE,ESTIMATED | | MEDICAL | | | | mL/min/1.69g7Ynas than | | CENTER - | | [...] [address] | [place] | [phone] | | [facility] | | [address] | | | - LABORATORY | | [...] + | [facility] | [address] | [place] | [phone] | | [facility] | | [address] | | | - LABORATORY | | [...] [address] | [place] | [phone] | | [facility] | | [address] | | | - LABORATORY | | [...] + | Performing | Address | City/State/[facility] | Phone Number | | Organization | | | | + + + + + | [facility] | [address] | [place] | [phone] | | [facility] | | [address] | | | - LABORATORY | | [...] + | [facility] | [address] | [place] | [phone] | | [facility] | | [address] | | | - LABORATORY | | [...] [address] | [place] | [phone] | | [facility] | | [address] | | | - LABORATORY | | [...] [address] | [place] | [phone] | | [facility] | | [address] | | | - LABORATORY | | [...] [address] | [place] | [phone] | | [facility] | | [address] | | | - LABORATORY | | [...] 7.26 (H) | 0.55 - 1.02 | [facility] | | | | | mg/dL | [...] mL/min/1.73m2 | [facility] | | | [place] | RATE,ESTIMATED | | MEDICAL | | | | mL/min/1.94e2Avzi than | | CENTER - | | [...] | ine Ratio | | | [facility] | | | | | [...] [address] | [place] | [phone] | | [facility] | | [address] | | | - LABORATORY | | [...] | | | in | | | [facility] | | | | | | MEDICAL | | | | | | CENTER - | | | | | | LABORATORY | | + + + + + + | Comment | Comment: < 0.50 | | [facility] | | | | ng/mL:Procalcitonin | | [facility] | | | | levels below 0.50 [...] [address] | [place] | [phone] | | [facility] | | [address] | | | - LABORATORY | | [...] + | [facility] | [address] | [place] | [phone] | | [facility] | | [address] | | | - LABORATORY | | [...] [address] | [place] | [phone] | | [facility] | | [address] | | | - LABORATORY | | [...] + | [facility] | [address] | [place], [place] | [phone] | | [facility] | | [address] | | | - LABORATORY | | [...] | this study were reported by the [facility] radiologist on | | | May [...] | + + + | ORDERING PHYSICIAN: Gpoi Muñoz MD PATIENT NAME: | [place] [facility] | | ARA CAMPOS GENDER: F : 1945 | [employer] | | SPECIMEN(S): A PLEURAL FLUID, LEFT [...] preparation was | | | performed by tydy [id number] [facility] | | | [place] [address] and [facility] [address] | | | [place] [address]. Professional interpretation was performed | | | by tydy - [facility] - [address] | | | [place] [address] (Chief Passenger Ship Steward/Stewardess: Alen Simpson, | | | .; CLIA#:[id number]).[id number] Diagnostician: Darcie López M.S., | | | CT([facility]), [facility] Fur Coat Sewer Diagnostician: Alen Kearney | | | Calvin [...] [address] | [place] | [phone] | | [facility] | | [address] | | | - LABORATORY | | [...] [address] | [place] | [phone] | | [facility] | | [address] | | | - LABORATORY | | [...] | [facility] [address] [facility] | [address] | [place] | [phone] | | [facility] | | [address] | | | - LABORATORY | | [...] [address] | [place] | [phone] | | [facility] | | [address] | | | - LABORATORY | | [...] + | [facility] | [address] | [place] | [phone] | | [facility] | | [address] | | | - LABORATORY | | [...] | [place] | | | [facility] | | [address] | | | - BLOOD BANK | [...] | | | | | | [employer] | | | | | [...] [address] | [place] | [phone] | | [facility] | | [address] | | | - LABORATORY | | [...] | [address] [facility] | [address] | [place] | [phone] | | [facility] | | [address] | | | - LABORATORY | | [...] + | [address] [facility] | [address] | [place] | [phone] | | [facility] | | [address] | | | - LABORATORY | | [...] [address] | [place] | [phone] | | [facility] | | [address] | | | - LABORATORY | | [...] | [facility] [address] [facility] | [address] | [place] | [phone] | | [facility] | | [address] | | | - LABORATORY | | [...] mL/min/1.73m2 | [facility] | | | [place] | RATE,ESTIMATED | | MEDICAL | | | | mL/min/1.44g5Umoi than | | CENTER - | | [...] + | [facility] | [address] | [place] | [phone] | | [facility] | | [address] | | | - LABORATORY | | [...] [address] | [place] | [phone] | | [facility] | | [address] | | | - LABORATORY | | [...] [address] | [place] | [phone] | | [facility] | | [address] | | | - LABORATORY | | [...]
--- OUTSIDE RECORDS SUMMARY | ~2019-09-08 | XMS | Encounter Summary ---
Demographics + + + | Address | [address] | | | [place] [address] | + + + | Home Phone [...] Author | [facility] | | | and Kamaljitana | + + + | Organization | [facility] | | | and [place] | + + + | Address | Unknown | + + + | Phone | Unavailable | + + + Support + + + + + | Name | Relationship | Address | Phone | + + + + + | India Tilley | ECON | [phone] | | | | | [place], [place] | | | | | [address] | | + + + + + | Yina La | ECON | Unknown | | + + + + + | Yina Peterson | ECON | Unknown | | + + + + + | Leatha Casillas | ECON | Unknown | | + + + + + Care Team Providers + +------+ + | Care People Manager Name | Role | Phone | + +------+ + PCP | Unavailable | + +------+ + Encounter Details +--------+ + + + + | Date | Type | Department | Care Team | Description | +--------+ + + + + | 11/18/ | Hospital | [facility] | Patricia, | | | 2007 - | Encounter | [facility] | Venkatesh Forte MD [address] | | | | | [place] [address] | [facility] | | | 12/11/ | | [place] | [place] [address] | | | 2007 | | [address] | [phone] | | | | | [phone] | | | +--------+ + + + [...]
--- OUTSIDE RECORDS SUMMARY | ~2019-09-08 | XMS | Encounter Summary ---
Demographics + + + | Address | [address] | | | [place] [address] | + + + | Home Phone [...] + | Author | [facility] | | | and [place]it[place] | + + + | Organization | [facility] | | | and [place] | + + + | Address | Unknown | + + + | Phone | Unavailable | + + + Support + + + + + | Name | Relationship | Address | Phone | + + + + + | India Tilley | ECON | [address] | | | | | [place], [place] | | | | | [address] | | + + + + + | Yina La | ECON | Unknown | | + + + + + | Yina Peterson | ECON | Unknown | | + + + + + | Leatha Casillas | ECON | Unknown | | + + + + + Care Team Providers + +------+ + | Care Communication Arts Lecturer Name | Role | Phone | + [...] + + | 08/17/ | Telephone | [facility] | Louise Fink, | Procedure (no show) | | 2019 | | VASCULAR SURGERY | RN | | | | | [address] | | | | | | [place] | | | | | | [address] | | | | | | [phone] | | | +--------+ + + + [...]
--- OUTSIDE RECORDS SUMMARY | ~2019-09-08 | XMS | Encounter Summary ---
Demographics + + + | Address | [address] | | | [place] [address] | + + + | Home Phone [...] | Author | [facility] | | | and Kamaljit[place] | + + + | Organization | [facility] | | | and [place] | + + + | Address | Unknown | + + + | Phone | Unavailable | + + + Support + + + + + | Name | Relationship | Address | Phone | + + + + + | India Tilley | ECON | [address] | | | | | [place], [place] | | | | | [address] | | + + + + + | Yina La | ECON | Unknown | | + + + + + | Yina Peterson | ECON | Unknown | | + + + + + | Leatha Casillas | ECON | Unknown | | + + + + + Care Team Providers + +------+ + | Care Dietary Server Name | Role | Phone | + +------+ + PCP | Unavailable | + +------+ + Encounter Details +--------+ + + + + | Date | Type | Department | Care Team | Description | +--------+ + + + + | 01/10/ | Off-Site | [facility] | Gopi Muñoz | End stage renal | | 2018 | Visit | NEPHROLOGY [address] | M, DO [address] | disease (HCC) | | | | [address] | [place] | (Primary Dx) | | | | [place], [place] | [place], [place] | | | | | [address] | [address] | | | | | [phone] | | | +--------+ + + + [...] HTN and diabetic glomerul osclerosis at the [facility] She also has depression, long standing HTN, [...]
--- OUTSIDE RECORDS SUMMARY | ~2019-09-08 | XMS | Encounter Summary ---
Demographics + + + | Address | [address] | | | [place] [address] | + + + | Home Phone [...] | Author | [facility] | | | and [place] | + + + | Organization | [facility] | | | and [place] | + + + | Address | Unknown | + + + | Phone | Unavailable | + + + Support + + + + + | Name | Relationship | Address | Phone | + + + + + | India Tilley | ECON | [address] | | | | | [place], [place] | | | | | [address] | | + + + + + | Yina La | ECON | Unknown | | + + + + + | Yina Peterson | ECON | Unknown | | + + + + + | Leatha Casillas | ECON | Unknown | | + + + + + Care Team Providers + +------+ + | Care Payable Manager Name | Role | Phone | + +------+ + PCP | Unavailable | + +------+ + Encounter Details +--------+ + + + + | Date | Type | Department | Care Team | Description | +--------+ + + + + | 07/07/ | Abstract | [facility] | Gopi Muñoz | | | 2017 | | NEPHROLOGY [address] | M, DO [address] [place] | | | | | [address] [facility] [address] | [place] | | | | | [place], [place] | [place] | | | | | [address] | [address] | | | | | [phone] | | | +--------+ + + + [...]
--- OUTSIDE RECORDS SUMMARY | ~2019-09-08 | XMS | Encounter Summary ---
Demographics + + + | Address | [address] | | | [place] [address] | + + + | Home Phone [...] | [facility] | | | and [place] | + + + | Organization | [facility] | | | and [place] | + + + | Address | Unknown | + + + | Phone | Unavailable | + + + Support + + + + + | Name | Relationship | Address | Phone | + + + + + | India Tilley | ECON | [address] | | | | | [place], [place] | | | | | [address] | | + + + + + | Yina La | ECON | Unknown | | + + + + + | Yina Peterson | ECON | Unknown | | + + + + + | Leatha Casillas | ECON | Unknown | | + + + + + Care Team Providers + +------+ + | Care Farmworker General Name | Role | Phone | + [...] | al disc | [address] | [place], [place] | | | | | (pyogenic), | [place], [place] | [address] | | | | | thoracic | [address] | Phone: | | | | | region ([facility]) | Phone: | [phone] | | | | | | [phone] | Fax: | | | | | 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: | [phone] | | | | | s of | [phone] | | | | | | thoracic [...] | | | vertebra, | [place], | [place] | | | | | site | [place] [address] | [address] | | | | | unspecified | Phone: | Phone: | | | | | ([facility]) | [phone] | [phone] | | | | | Procedures | Fax: | Fax: | | | | | [place] OFFICE | [phone] | [phone] | | | | | OUTPATIENT | | | | | | | NEW 60 | | | | | | | MINUTES | | | + +--------+ + + + + Encounter Details +--------+---------+ + + + | Date | Type | Department | Care Team | Description | +--------+---------+ + + + | 05/18/ | Office | [facility] | Fabiana Miller, | 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 Complete MRI as soon as possible. 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 History is obtained from: Patient, limited medical records from outside referring provider. The patient presents to clinic referred by Dr. Mat Brooks from orthopedic surgery in [facility]. 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 The patient states that she was on [...] W/CANNULATED SCREWS; Surgeon: Scott Koroma MD; Location: [facility] MAIN OR HYSTERECTOMY MASTECTOMY 2006 left ear NOSE SURGERY 2009 OTHER SURGICAL HISTORY Right 03/28/2019 Procedure: TUNNEL PICC LINE PLACEMENT-6fr 22cm BARD Power Line; Surgeon: Jose Jiménez MD; Location: [facility] INTERVENTIONAL RADIOLOGY REMOVAL TUNNELED CATHETER Right 04/04/[address] Stephenson SHUNT PLACEMENT/INSERTION N/A 11/08/2017 Procedure: Tunneled Hemodialysis Catheter Placement; Surgeon: Nora Leo MD; Location : [facility] MAIN OR SHUNT PLACEMENT/INSERTION Right 02/04/2018 Procedure: INSERTION SHUNT HEMODIALYSIS W/ PERMACATH; Surgeon: Heather Navarro MD; L ocation: [facility] MAIN OR VEIN SURGERY Right 01/04/2018 Procedure: Right Transposed Basilic Vein to Proximal Radial Artery; Surgeon: Santos Stephenson MD, FACS; Location: [facility] MAIN OR Social History Socioeconomic [...] INFLUENZA QUADR W/PRES (PED/ADOL/ADULT) MULTIDOSE 06/27/2014 INFLUENZA, [id number], UNSPECIFIED 08/28/2009 INFLUENZA, UNSPECIFIED FORMULATION 07/03/1992, 06/18/1993, [...] REFERENCE | | | | performed at [facility];[address] | | LAB | | | | [facility] | | [facility] | | | | [address];[place] [address] | | LABORATORY | | + + + + + + + + | Specimen | + + | Blood | + + + + + + + | Performing | Address | City/State/Zipcode | Phone Number | | Organization | | | | + + + + + | REFERENCE LAB | [address] | [place] [address] | [phone] | | [facility] | [address] | | | | LABORATORY | | | | + + + + + | REFERENCE LAB | [address] | [place] [address] | | | [facility] | Bl[address] | [...] REFERENCE | | | | performed at [facility];[address] | | LAB | | | | [place] | | [facility] | | | | [address];[place] [address] | | LABORATORY | | + + + + + + + + | Specimen | + + | Blood | + + + + + + + | Performing | Address | City/State/Zipcode | Phone Number | | Organization | | | | + + + + + | REFERENCE LAB | [address] [place] [address] | [place] [address] | [phone] | | [facility] | Blvd[address] | | | | LABORATORY | | | | + + + + + | REFERENCE LAB | [address] [place] [address] | [place] [address] | | | [facility] | Bl[address] | [...] | | | | | performed at [facility];[address] | | | | | | [facility] | | | | | | Blvd;[place] [address] | | | | | | | | | | + + + + + + + + | Specimen | + + | Blood | + + + + + + + | Performing | Address | City/State/Zipcode | Phone Number | | Organization | | | | + + + + + | REFERENCE LAB | [address] | [place] [address] | [phone] | | [facility] | Bl[address] | | | | LABORATORY | | | | + + + + + | REFERENCE LAB | [address] [place] [address] | [place] [address] | | | [facility] | Bl[address] | [...] | | | Absolute | performed at [facility];[address] | K/uL | LAB | | | | [place] | | [facility] | | | | [address];[place] [address] | | LABORATORY | | + + + + + + + + | Specimen | + + | Blood | + + + + + + + | Performing | Address | City/State/Zipcode | Phone Number | | Organization | | | | + + + + + | REFERENCE LAB | [address] | [place] [address] | [phone] | | [facility] | [address] | | | | LABORATORY | | | | + + + + + | REFERENCE LAB | [address] | [place] [address] | | | [facility] | [address] | [...] | | LAB | | | | Blvd;[place], [place] | | [facility] | | | | [id number]: Testing | | LABORATORY | | | | performed at [facility], [address] | | | | | [address], | | | | | | [place] [address] | | | | + + + [...] + + | REFERENCE LAB | [address] | [place] [address] | [phone] | | [facility] | Blvd[address] | | | | LABORATORY | | | | + + + + + | REFERENCE LAB | [address] | [place] [address] | | | [facility] | [address] | [...]
--- OUTSIDE RECORDS SUMMARY | ~2019-09-08 | XMS | Encounter Summary ---
Demographics + + + | Address | [address] | | | [place] [address] | + + + | Home Phone [...] | Author | [facility] | | | and [place]it[place] | + + + | Organization | [facility] | | | and [place] | + + + | Address | Unknown | + + + | Phone | Unavailable | + + + Support + + + + + | Name | Relationship | Address | Phone | + + + + + | Idnia Tilley | ECON | [address] | | | | | [place], [place] | | | | | [address] | | + + + + + | Yina La | ECON | Unknown | | + + + + + | Yina Peterson | ECON | Unknown | | + + + + + | Leatha Casillas | ECON | Unknown | | + + + + + Care Team Providers + +------+ + | Care Garnett Fixer Name | Role | Phone | + +------+ + PCP | Unavailable | + +------+ + Encounter Details +--------+ + + + + | Date | Type | Department | Care Team | Description | +--------+ + + + + | 01/10/ | Off-Site | [facility] | Gopi Muñoz | End stage renal | | 2018 | Visit | NEPHROLOGY [address] | M, DO [address] | disease (HCC) | | | | [address] | [place], [address] | (Primary Dx) | | | | [place], [place] | [place], [place] | | | | | [address] | [address] | | | | | [phone] | | | +--------+ + + + [...] HTN and diabetic glomerul osclerosis at the [facility]. She also has depression, long [...]
--- OUTSIDE RECORDS SUMMARY | ~2019-09-08 | XMS | Encounter Summary ---
Demographics + + + | Address | [address] | | | [place] [address] | + + + | Home Phone [...] + | Author | [facility] | | | and [place]it[place] | + + + | Organization | [facility] | | | and [place] | + + + | Address | Unknown | + + + | Phone | Unavailable | + + + Support + + + + + | Name | Relationship | Address | Phone | + + + + + | India Tilley | ECON | [address] | | | | | [place], [place] | | | | | [address] | | + + + + + | Yina La | ECON | Unknown | | + + + + + | Yina Peterson | ECON | Unknown | | + + + + + | Leatha Casillas | ECON | Unknown | | + + + + + Care Team Providers + +------+ + | Care Chief Wheelage Clerk Name | Role | Phone | [...] | [address] | [address], [place] | (moderate) (Primary | | | | [place], [place] | [address] [place], [place] | Dx) | | | | [address] | [address] | | | | | [phone] | | | +--------+ + + + [...] 03/23/2017 2:38 PM PDTRenal Ultrasound scheduled at [facility] on 03/29/17 at 10 AM. docu mented in this encounter Plan of Treatment Not on filedocumented as of this encounter Visit Diagnoses + + | Diagnosis | + + | Chronic kidney disease, stage III (moderate) (HCC) - Primary Chronic kidney disease, | | Stage III (moderate) | + + documented in this encounter"
--- OUTSIDE RECORDS SUMMARY | ~2019-09-08 | XMS | Encounter Summary ---
Demographics + + + | Address | [address] | | | [place] [address] | + + + | Home Phone [...] Author | [facility] | | | and [place] | + + + | Organization | [facility] | | | and [place] | + + + | Address | Unknown | + + + | Phone | Unavailable | + + + Support + + + + + | Name | Relationship | Address | Phone | + + + + + | India Tilley | ECON | [address] | | | | | [place], [place] | | | | | [address] | | + + + + + | Yina La | ECON | Unknown | | + + + + + | Yina Peterson | ECON | Unknown | | + + + + + | Leatha Casillas | ECON | Unknown | | + + + + + Care Team Providers + +------+ + | Care Termite Treater Helper Name | Role | Phone | [...] | 02/03/ | Office | [facility] | Scott Koroma, | Postop check | | 2019 | Visit | ORTHOPEDIC SURGERY | MD [address] | (Primary Dx) | | | | [address] [facility] | [place] | | | | | [place] | [address] | | | | | [address] | | | | | | [phone] | | | +--------+---------+ + + + [...]
--- OUTSIDE RECORDS SUMMARY | ~2019-09-08 | XMS | Clinical Summary ---
Demographics + + + | Address | [address] | | | [place] [address] | + + + | Home Phone [...] | [facility] | | | and [place] | + + + | Organization | [facility] | | | and [place] | + + + | Address | Unknown | + + + | Phone | Unavailable | + + + Support + + + + + | Name | Relationship | Address | Phone | + + + + + | India Tilley | ECON | [address] | | | | | [place], [place] | | | | | [address] | | + + + + + | Yina La | ECON | Unknown | | + + + + + | Yina Peterson | ECON | Unknown | | + + + + + | Leatha Casillas | ECON | Unknown | | + + + + + Care Team Providers + +------+ + | Care Straw Hat Presser Name | Role | Phone | + +------+ + | Renato villarreal FERMENTATION MANAGER | PCP | | + +------+ [...] | mastectomy L Oct 19 with [facility] | | | | [...] | | 2018 | on | | Potash Flaker | Records | | | | | | 06/20/2019- | | | | | | 9- [facility] | | | | | | [facility] . ) | +--------+ + + [...] Arriola | | 2018 | | | ILSA Restrepo | | +--------+ + + + + | 06/14/ | Telephone | Infectious Diseases | Tabatha Patel, | Care Coordination | | 2019 | | | Potash Flaker | (Patient Timeline - | | | [...] of | | 2018 | | | Recreation Therapy Teacher | intervertebral disc | | | [...] | + + + + | INFLUENZA, [id number], | 08/28/2009 | | | UNSPECIFIED | [...] | Right: | CATIA | | | [id number] | | 6.5x85mm - | | Hip | MEDICAL - | | | S / / | | [id number]: Qty: 2 | | | STRY | | | | | on 12/04/2018 by Ga, | | | | | | | | Scott John MD at [facility] | | | | | | | | [facility] | | | | | | | + +-------+--------+ +--------+--------+--------+ | Screw Asnis 3 Ti 20mm | Screw | Right: | CATIA | | | [id number] | | 6.5x90mm - | | Hip | MEDICAL - | | | S / / | | [id number]: Qty: 1 | | | STRY | | | | | on 12/04/2018 by Ga, | | | | | | | | Scott John MD at [facility] | | | | | | | | [facility] | | | | | | | [...] section. | | | | | region ([facility]) | | | | | | Osteomyelitis of | | | | | | thoracic vertebra | | | | | | ([facility]) | | + +--------+ + + + | C-REACTIVE PROTEIN | Routin | 06/13/2019 | Infection of | Results for this | | | e | 3:12 PM | intervertebral disc | procedure are in the | | | | PDT | (pyogenic), thoracic | results section. | | | | | region ([facility]) | | | | | | Osteomyelitis of | | | | | | thoracic vertebra | | | | | | ([facility]) | | + +--------+ + [...] REFERENCE | | | | performed at [facility];[address] | | LAB | | | | [place] | | [facility] | | | | [address];[place] [address] | | LABORATORY | | + + + + + + + + | Specimen | + + | Blood | + + + + + + + | Performing | Address | City/State/Zipcode | Phone Number | | Organization | | | | + + + + + | REFERENCE LAB | [address] | [place] [address] | [phone] | | [facility] | Bl[address] | | | | LABORATORY | | | | + + + + + | REFERENCE LAB | [address] | [place] [address] | | | [facility] | Bl[address] | [...] REFERENCE | | | | performed at [facility];[address] | | LAB | | | | [place] | | [facility] | | | | Blvd;[place] [address] | | LABORATORY | | + + + + + + + + | Specimen | + + | Blood | + + + + + + + | Performing | Address | City/State/Zipcode | Phone Number | | Organization | | | | + + + + + | REFERENCE LAB | [address] | [place] [address] | [phone] | | [facility] | Bl[address] | | | | LABORATORY | | | | + + + + + | REFERENCE LAB | [address] | [place] [address] | | | [facility] | Blvd[address] | [...] +--------+ +---------+--------+ | MEDICARE | MEDICA | [id number] | 04/13/20 | [phone] | | Medica | | | RE | | 11-Pre | 5 | | re | | | PART A | | sent | | | | | | AND B | | | | | | + +--------+ +--------+ +---------+--------+ | MEDICARE | MEDICA | [id number] | 04/13/20 | [phone] | | Medica | | | RE | | 11-Pre | 5 | | re | | | PART A | | sent | | | | | | AND B | | | | | | + +--------+ +--------+ +---------+--------+ | [facility] | IHS | [id number] | | | | Indemn | | SERVICE | YELLOW | | 019-Pr | | | ity | | | HAWK | | esent | | | | + +--------+ +--------+ +---------+--------+ | MEDICAID [place] | MEDICA | [id number] | 03/13/20 | [phone] | | Medica | | | ID [place] | | 17-Pre | 2 | | id | | | PLUS | | sent | | | | + +--------+ +--------+ +---------+--------+ | [facility] | IHS | [id number] | | | | Indemn | | [...] Person | Self | [birth year] | [address] | | | al/Fam | | 1945 | [phone] | [place] [address] | | | natali | | | 7 (Home) | | | | | | | [phone] | | | | | | | 0 (Work) | | + +--------+ +--------+ + + | Estefani Tilley | Person | Self | [birth year] | [address] | | | al/Fam | | 1945 | [phone] | [place] [address] | | | natali | | | 7 (Home) | | | | | | | [phone] | | | | | | | 0 (Work) | | + +--------+ +--------+ + + Advance Directives + + + + + | Type | Date Recorded | Patient | Explanation | | | | Streetcar Repairer Helper | | + + + + + | Power of | | | | | Butcher Assistant | | | | + + + [...]
--- OUTSIDE RECORDS SUMMARY | ~2019-09-08 | XMS | Encounter Summary ---
Demographics + + + | Address | [address] | | | [place] [address] | + + + | Home Phone [...] Author | [facility] | | | and [place] | + + + | Organization | [facility] | | | and [place] | + + + | Address | Unknown | + + + | Phone | Unavailable | + + + Support + + + + + | Name | Relationship | Address | Phone | + + + + + | India Tilley | ECON | [address] | | | | | [place], [place] | | | | | [address] | | + + + + + | Yina La | ECON | Unknown | | + + + + + | Yina Peterson | ECON | Unknown | | + + + + + | Leatha Casillas | ECON | Unknown | | + + + + + Care Team Providers + +------+ + | Care Clerk Television Production Name | Role | Phone | + +------+ + PCP | Unavailable | + +------+ + Encounter Details +--------+ + + + + | Date | Type | Department | Care Team | Description | +--------+ + + + + | 10/04/ | Abstract | [facility] | Darlin Moseley W, | | | 2017 | | NEPHROLOGY [address] | [address] | | | | | [address] | [address] [facility] | | | | | [place] | [place] [address] | | | | | [address] | [phone] | | | | | [phone] | | | +--------+ + + + [...]
--- OUTSIDE RECORDS SUMMARY | ~2019-09-08 | XMS | Encounter Summary ---
Demographics + + + | Address | [address] | | | [place] [address] | + + + | Home Phone [...] + | Author | [facility] | | | and [place] | + + + | Organization | [facility] | | | and [place] | + + + | Address | Unknown | + + + | Phone | Unavailable | + + + Support + + + + + | Name | Relationship | Address | Phone | + + + + + | India Tilley | ECON | [address] | | | | | [place], [place] | | | | | [address] | | + + + + + | Yina La | ECON | Unknown | | + + + + + | Yina Peterson | ECON | Unknown | | + + + + + | Leatha Casillas | ECON | Unknown | | + + + + + Care Team Providers + +------+ + | Care Social Work Therapist Name | Role | Phone | [...] | al disc | [address] | [place], [place] | | | | | (pyogenic), | [place], [place] | [address] | | | | | thoracic | [address] | Phone: | | | | | region ([facility]) | Phone: | [phone] | | | | | | [phone] | Fax: | | | | | 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: | [phone] | | | | | s of | [phone] | | | | | | thoracic [...] | | | vertebra, | [place], | [place] | | | | | site | [place] [address] | [address] | | | | | unspecified | Phone: | Phone: | | | | | ([facility]) | [phone] | [phone] | | | | | Procedures | Fax: | Fax: | | | | | [place] OFFICE | [phone] | [phone] | | | | | OUTPATIENT | | | | | | | NEW 60 | | | | | | | MINUTES | | | + +--------+ + + + + Encounter Details +--------+---------+ + + + | Date | Type | Department | Care Team | Description | +--------+---------+ + + + | 05/18/ | Office | [facility] | Fabiana Miller, | 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 | 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 | Nick Apodaca MD | intervertebral disc | | | | [address] | [address] | (pyogenic), thoracic | | | | [place], [place] | [place] [address] | region ([facility]) | | | | [address] | [phone] | (Primary Dx); | | | | [phone] | | Osteomyelitis of | | | | | | thoracic vertebra | | | | | | ([facility]); | | | | | [...] dialysis | | | | | | ([facility]) | +--------+---------+ + + + [...] Pritchard MD - 05/18/2019 1:20 PM PDT [facility]: Infectious Diseases Initial Outpatient Consult [...] with diabetic nephropathy, with dialysis via a [facility] upper extremity AV fistula on Wednesdays and Fridays, seen in consultation for p ossible discitis and osteomyelitis. History is obtained from: Patient, limited medical records from outside referring provider. The patient presents to clinic referred by Dr. Mat Brooks from orthopedic surgery in [facility]. 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 The patient states that she was on [...] W/CANNULATED SCREWS; Surgeon: Scott Koroma MD; Location: [facility] MAIN OR HYSTERECTOMY MASTECTOMY 2006 left ear NOSE SURGERY 2009 OTHER SURGICAL HISTORY Right 03/28/2019 Procedure: TUNNEL PICC LINE PLACEMENT-6fr 22cm BARD Power Line; Surgeon: Jose Jiménez MD; Location: [facility] INTERVENTIONAL RADIOLOGY REMOVAL TUNNELED CATHETER Right 04/04/[address] Stephenson SHUNT PLACEMENT/INSERTION N/A 11/08/2017 Procedure: Tunneled Hemodialysis Catheter Placement; Surgeon: Nora Leo MD; Location : [facility] MAIN OR SHUNT PLACEMENT/INSERTION Right 02/04/2018 Procedure: INSERTION SHUNT HEMODIALYSIS W/ PERMACATH; Surgeon: Heather Navarro MD; L ocation: [facility] MAIN OR VEIN SURGERY Right 01/04/2018 Procedure: Right Transposed Basilic Vein to Proximal Radial Artery; Surgeon: Santos Stephenson MD, FACS; Location: [facility] MAIN OR Social History Socioeconomic History [...] INFLUENZA QUADR W/PRES (PED/ADOL/ADULT) MULTIDOSE 06/27/2014 INFLUENZA, [id number], UNSPECIFIED 08/28/2009 INFLUENZA, UNSPECIFIED FORMULATION 07/03/1992, 06/18/1993, [...] | | | | performed at [facility];[address] | | LAB | | | | [facility] | | [facility] | | | | [address];[place] [address] | | LABORATORY | | + + + + + + + + | Specimen | + + | Blood | + + + + + + + | Performing | Address | City/State/Zipcode | Phone Number | | Organization | | | | + + + + + | REFERENCE LAB | [address] | [place] [address] | [phone] | | [facility] | Blvd[address] | | | | LABORATORY | | | | + + + + + | REFERENCE LAB | [address] | [place] [address] | | | [facility] | Blvd. | [...] | | | | performed at [facility];[address] | | LAB | | | | [place] | | [facility] | | | | Bl[address];[place] [address] | | LABORATORY | | + + + + + + + + | Specimen | + + | Blood | + + + + + + + | Performing | Address | City/State/Zipcode | Phone Number | | Organization | | | | + + + + + | REFERENCE LAB | [address] [place] [address] | [place] [address] | [phone] | | [facility] | Blvd. | | | | LABORATORY | | | | + + + + + | REFERENCE LAB | [address] [place] [address] | [place] [address] | | | [facility] | Blvd. | [...] | | | | performed at [facility];[address] | | | | | | [facility] | | | | | | Blvd;[place] [address] | | | | | | | | | | + + + + + + + + | Specimen | + + | Blood | + + + + + + + | Performing | Address | City/State/Zipcode | Phone Number | | Organization | | | | + + + + + | REFERENCE LAB | [address] | [place] [address] | [phone] | | [facility] | Blvd[address] | | | | LABORATORY | | | | + + + + + | REFERENCE LAB | [address] [place] [address] | [place] [address] | | | [facility] | Blvd. | [...] | | Absolute | performed at [facility];[address] | K/uL | LAB | | | | [place] | | [facility] | | | | [address];[place] [address] | | LABORATORY | | + + + + + + + + | Specimen | + + | Blood | + + + + + + + | Performing | Address | City/State/Zipcode | Phone Number | | Organization | | | | + + + + + | REFERENCE LAB | [address] | [place] [address] | [phone] | | [facility] | Blvd[address] | | | | LABORATORY | | | | + + + + + | REFERENCE LAB | [address] | [place] [address] | | | [facility] | Blvd[address] | [...] | | LAB | | | | Blvd;[place], [place] | | [facility] | | | | [id number]: Testing | | LABORATORY | | | | performed at [facility], [address] | | | | [address], | | | | | | [place] [address] | | | | + + + [...] + + | REFERENCE LAB | [address] | [place] [address] | [phone] | | [facility] | Blvd[address] | | | | LABORATORY | | | | + + + + + | REFERENCE LAB | [address] | [place] [address] | | | [facility] | Blvd[address] | [...]
--- OUTSIDE RECORDS SUMMARY | ~2019-09-08 | XMS | Encounter Summary ---
Demographics + + + | Address | [address] | | | [place] [address] | + + + | Home Phone [...] + | Author | [facility] | | | and [place] | + + + | Organization | [facility] | | | and [place] | + + + | Address | Unknown | + + + | Phone | Unavailable | + + + Support + + + + + | Name | Relationship | Address | Phone | + + + + + | India Tilley | ECON | [address] | | | | | [place], [place] | | | | | [address] | | + + + + + | Yina La | ECON | Unknown | | + + + + + | Yina Peterson | ECON | Unknown | | + + + + + | Leatha Casillas | ECON | Unknown | | + + + + + Care Team Providers + +------+ + | Care Nursing Instructor Name | Role | Phone | + +------+ + PCP | Unavailable | + +------+ + Reason for Visit +--------+ + | Reason | Comments | +--------+ + | Other | Admission Records 06/20/2019-06/22/2019- [facility] . | +--------+ + Encounter Details +--------+ + + + + | Date | Type | Department | Care Team | Description | +--------+ + + + + | 06/27/ | Documentati | [facility] | Tabatha Patel, | Other (Admission | | 2019 | on | INFECTIOUS DISEASE | Rescue Worker | Records | | | | [address] | | 06/20/2019- | | | | [place], [place] | | [facility] | | | | [address] | | [facility] . ) | | | | [phone] | | | +--------+ + + + [...] as of this encounter Progress Tabatha Rowley Rescue Worker - 06/27/2019 10:44 AM PDTReceived records from [facility]. For patient admission from 06/20/2019-06/22/2019. Records were sent to scan. Yoko CMA. documen rich in this encounter Plan of Treatment Not on filedocumented as of this encounter Visit Diagnoses Not on filedocumented in this encounter"
--- OUTSIDE RECORDS SUMMARY | ~2019-09-08 | XMS | Encounter Summary ---
Demographics + + + | Address | [address] | | | [place] [address] | + + + | Home Phone [...] + | Author | [facility] | | | and [place] | + + + | Organization | [facility] | | | and [place] | + + + | Address | Unknown | + + + | Phone | Unavailable | + + + Support + + + + + | Name | Relationship | Address | Phone | + + + + + | India Tilley | ECON | [address] | | | | | [place], [place] | | | | | [address] | | + + + + + | Yina La | ECON | Unknown | | + + + + + | Yina Peterson | ECON | Unknown | | + + + + + | Leatha Casillsa | ECON | Unknown | | + + + + + Care Team Providers + +------+ + | Care Agile Qa Tester Name | Role | Phone | + +------+ + PCP | Unavailable | + +------+ + Encounter Details +--------+ + + + + | Date | Type | Department | Care Team | Description | +--------+ + + + + | 04/16/ | Abstract | [facility] | Darlin Moseley W, | | | 2016 | | NEPHROLOGY [address] | [address] | | | | | [address] | [address] [facility] | | | | | [place] [address] | [place] [address] | | | | | [address] | [phone] | | | | | [phone] | | | +--------+ + + + [...]
--- OUTSIDE RECORDS SUMMARY | ~2019-09-08 | XMS | Encounter Summary ---
Demographics + + + | Address | [address] | | | [place] [address] | + + + | Home Phone [...] | Author | [facility] | | | and [place] | + + + | Organization | [facility] | | | and [place] | + + + | Address | Unknown | + + + | Phone | Unavailable | + + + Support + + + + + | Name | Relationship | Address | Phone | + + + + + | India Tilley | ECON | [address] | | | | | [place], [place] | | | | | [address] | | + + + + + | Yina La | ECON | Unknown | | + + + + + | Yina Peterson | ECON | Unknown | | + + + + + | Leatha Casillas | ECON | Unknown | | + + + + + Care Team Providers + +------+ + | Care Spice Grinder Name | Role | Phone | + +------+ + PCP | Unavailable | + +------+ + Encounter Details +--------+ + + + + | Date | Type | Department | Care Team | Description | +--------+ + + + + | 11/08/ | [facility] | [facility] | Provider, | | | 2018 | Exam | MED CTR EXTERNAL | MD [address] | | | | | IMAGING | [address] | | | | | [phone] | [place] [address] | | +--------+ + + + + [...] for comparison only - no result from [place]. | [facility] | + + + + +---------+ + + | Performing | Address | City/State/Zipcode | Phone Number | | Organization | | | | + +---------+ + + | [facility] | | | | + +---------+ + + documented in this encounter Visit Diagnoses Not on filedocumented in this encounter"
--- OUTSIDE RECORDS SUMMARY | ~2019-09-08 | XMS | Encounter Summary ---
Demographics + + + | Address | [address] | | | [place] [address] | + + + | Home Phone [...] | Author | [facility] | | | and [place] | + + + | Organization | [facility] | | | and [place] | + + + | Address | Unknown | + + + | Phone | Unavailable | + + + Support + + + + + | Name | Relationship | Address | Phone | + + + + + | India Tilley | ECON | [address] | | | | | [place], [place] | | | | | [address] | | + + + + + | Yina La | ECON | Unknown | | + + + + + | Yina Peterson | ECON | Unknown | | + + + + + | Leatha Casillas | ECON | Unknown | | + + + + + Care Team Providers + +------+ + | Care Fire Equipment Operator Name | Role | Phone | + +------+ + | Renato villarreal DIPESH | PCP | | + +------+ + Encounter Details +--------+ + + + + | Date | Type | Department | Care Team | Description | +--------+ + + + + | 08/16/ | Telephone | [facility] | Fransisco Johnston MD | | | 2019 | | CENTER INTRA OP | [address] | | | | | [address] | [facility] | | | | | [place], [place] | [place] [address] | | | | | [address] | [phone] | | | | | [phone] | | | +--------+ + + + [...]
--- OUTSIDE RECORDS SUMMARY | ~2019-09-08 | XMS | Encounter Summary ---
Demographics + + + | Address | [address] | | | [place] [address] | + + + | Home Phone [...] + | Author | [facility] | | | and [place] | + + + | Organization | [facility] | | | and [place] | + + + | Address | Unknown | + + + | Phone | Unavailable | + + + Support + + + + + | Name | Relationship | Address | Phone | + + + + + | India Tilley | ECON | [address] | | | | | [place], [place] | | | | | [address] | | + + + + + | Yina La | ECON | Unknown | | + + + + + | Yina Peterson | ECON | Unknown | | + + + + + | Leatha Casillas | ECON | Unknown | | + + + + + Care Team Providers + +------+ + | Care Cotton Ball Bagger Name | Role | Phone | + +------+ + PCP | Unavailable | + +------+ + Encounter Details +--------+ + + + + | Date | Type | Department | Care Team | Description | +--------+ + + + + | 09/23/ | Hospital | [facility] | | | | 2006 - | Encounter | MED CTR CANCER | | | | | | CENTER [facility] [address] | | | | 10/13/ | | [place] | | | | 2006 | | [address] | | | | | | [phone] | | | +--------+ + + + [...]
--- OUTSIDE RECORDS SUMMARY | ~2019-09-08 | XMS | Encounter Summary ---
Demographics + + + | Address | [address] | | | [place] [address] | + + + | Home Phone [...] | Author | [facility] | | | and [place] | + + + | Organization | [facility] | | | and [place] | + + + | Address | Unknown | + + + | Phone | Unavailable | + + + Support + + + + + | Name | Relationship | Address | Phone | + + + + + | India Tilley | ECON | [address] | | | | | [place], [place] | | | | | [address] | | + + + + + | Yina La | ECON | Unknown | | + + + + + | Yina Peterson | ECON | Unknown | | + + + + + | Leatha Casillas | ECON | Unknown | | + + + + + Care Team Providers + +------+ + | Care Assistance Representative Name | Role | Phone | + +------+ + PCP | Unavailable | + +------+ + Encounter Details +--------+ + + + + | Date | Type | Department | Care Team | Description | +--------+ + + + + | 10/22/ | Hospital | [facility] | Gopi Muñoz | Chronic kidney | | 2018 | Encounter | MED CTR ULTRASOUND | M, DO [address] | disease, stage V | | | | [address] [place] | [address] | ([facility]) | | | | [place], [place] | [place], [place] | | | | | [address] | [id number] | | | | | [phone] | | | | | | | [...] BILATERAL | | PST | ([facility]) | results section. | + +--------+ [...]
--- OUTSIDE RECORDS SUMMARY | ~2019-09-08 | XMS | Encounter Summary ---
Demographics + + + | Address | [address] | | | [place] [address] | + + + | Home Phone [...] | Author | [facility] | | | and [place] | + + + | Organization | [facility] | | | and [place] | + + + | Address | Unknown | + + + | Phone | Unavailable | + + + Support + + + + + | Name | Relationship | Address | Phone | + + + + + | India Tilley | ECON | [address] | | | | | [place], [place] | | | | | [address] | | + + + + + | Yina La | ECON | Unknown | | + + + + + | Yina Peterson | ECON | Unknown | | + + + + + | Leatha Casillas | ECON | Unknown | | + + + + + Care Team Providers + +------+ + | Care Apprentice Cook Name | Role | Phone | [...] + + | 12/29/ | Telephone | [facility] | Santos Stephenson | Appointment | | 2017 | | SURGERY [address] | MD Kinga, FACS [address] | | | | | [place], [place] | [address] [facility] | | | | | [address] | [place] [address] | | | | | [phone] | [phone] | | | | | | | [...]
--- OUTSIDE RECORDS SUMMARY | ~2019-09-08 | XMS | Encounter Summary ---
Demographics + + + | Address | [address] | | | [place] [address] | + + + | Home Phone [...] | Author | [facility] | | | and [place] | + + + | Organization | [facility] | | | and [place] | + + + | Address | Unknown | + + + | Phone | Unavailable | + + + Support + + + + + | Name | Relationship | Address | Phone | + + + + + | India Tilley | ECON | [address] | | | | | [place], [place] | | | | | [address] | | + + + + + | Yina La | ECON | Unknown | | + + + + + | Yina Peterson | ECON | Unknown | | + + + + + | Leatha Casillas | ECON | Unknown | | + + + + + Care Team Providers + +------+ + | Care Co Founder Name | Role | Phone | + [...] | stage renal | MD Phone: | [address] [place] [address] | | | | | disease) | | [address] | | | | | ([facility]) | | [address] | | | | | Procedures | Fax: | [place] | | | | | [place] OFFICE | | [address] Phone: | | | | | OUTPATIENT | | [phone] | | | | | VISIT 25 | | Fax: | | | | | MINUTES | | [phone] | +--------+--------+ + + + + Encounter Details +--------+ + + + + | Date | Type | Department | Care Team | Description | +--------+ + + + + | 05/11/ | Off-Site | [facility] [place] | Gopi Muñoz | ESRD (end stage | | 2019 | Visit | NEPHROLOGY [address] | M, DO [address] [place] | renal disease) on | | | | [address] | [place], [address] | dialysis (HCC) | | | | [place] | [place] | (Primary Dx) | | | | [address] | [address] | | | | | [phone] | | | +--------+ + + + [...] Gopi Muñoz DO - 2019 12:00 PM [id number] sig javi by Gopi Muñoz DO at 2019 8:58 PM PDT documented in this encounter Progress Notes Gopi Muñoz DO - 2019 12:00 PM PDT Subjective: DIALYSIS NOTE Patient ID: Estefani Tilley is a 74 y.o. female. HPI Comments: I inadvertently missed Estefani on dialysis rounds at [facility] on 05/08/2019. 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 There has been a great deal of confusion about her outpatient antibiotics, and hypertension regimen, therefore, I asked her to my office today. Apparently she was discharged from [facility] on 03/31/2019 with acute low back pain, fluid collection and a diagnosis of T11-T12 verteb ral discitis/osteomyelitis. CT-guided aspiration/biopsy did not reveal an organism. Theref ore she was discharged on 03/31 on outpatient IV Vanco, 500 mg, Q. HD treatment MWF, and IV cefepime daily through 05/04/2019. I was called by the [facility] staff that there was concern w [...] she verball y agrees to go to [facility], [place], and bean picker the meds. (She does appear to a mbulate independently with only a cane for light assistance). PAST MEDICAL HISTORY: 1. ESRD 2 diabetic glomerulosclerosiswith the patient beginning Inpt HD in 018and then was DC to [facility] [place] [place]. Unfortunat brandy, she has had intermittent [...] get her back to Dr. Jessie Jansen, [facility], [place]. Will repeat one more ESR [...] to go to write a tonight to bean picker her meds and that she should take the first dose in each AM prior to dialysis as well. She was A&O x3 during this discussion. I think that she understands her risk of CV disease, and stroke if she does no t take her meds. 4. Will relay the above to the charge nurse at [facility], LISA Marshall by secure text. 5. My partner, Dr. Magui Moseley will check in on her in 2 weeks at [facility]. 6. Lastly she is concerned about breakthrough pain. I agreed to give her generic Vicodin 5 mg / 325 mg, 1 tab, Q 12 Hours, #40, no refill. 7. Also, Estefani and her family would like to explore whether the [place] or [facility] are could h elp transport her back and forth to the [facility] clinic for her treatments, thrice weekly. [place] states that financially this is becoming a hardship for her. Electronically signed by Gopi Muñoz DO. 05/11/19 11:02 CC: Blaine Jansen MD, [place], [facility], [place], [place] [facility], [place]. document ed in this encounter Plan [...]
--- OUTSIDE RECORDS SUMMARY | ~2019-09-08 | XMS | Encounter Summary ---
Demographics + + + | Address | [address] | | | [place] [address] | + + + | Home Phone [...] [facility] | | | and [place] | + + + | Organization | [facility] | | | and [place] | + + + | Address | Unknown | + + + | Phone | Unavailable | + + + Support + + + + + | Name | Relationship | Address | Phone | + + + + + | India Tilley | ECON | [address] | | | | | [place], [place] | | | | | [address] | | + + + + + | Yina La | ECON | Unknown | | + + + + + | Yina Peterson | ECON | Unknown | | + + + + + | Leatha Casillas | ECON | Unknown | | + + + + + Care Team Providers + +------+ + | Care Motorcycle Service Technician Name | Role | Phone [...] | | | | renal | PA-C [address] | [address] [place] [address] | | | | | disease | | [address] | | | | | ([facility]) | CONF[facility]ATED | [address] | | | | | Procedures | WAY | [place] | | | | | [place] OFFICE | [place], | [address] Phone: | | | | | OUTPATIENT | [place] [address] | [phone] | | | | | VISIT 25 | Phone: | Fax: | | | | | [place] | [phone] | [phone] | | | | | ESRD RELATED | Fax: | | | | | | SVC MONTHLY | [phone] | | | | | | 20&/> YR | | | | | | | OLD 4/> | | | | | | | VISITS | | | +--------+--------+ + + + + Encounter Details +--------+ + + + + | Date | Type | Department | Care Team | Description | +--------+ + + + + | 08/22/ | Off-Site | [facility] | Gopi Muñoz | End stage renal | | 2018 | Visit | NEPHROLOGY [address] | M, DO [address] [place] | disease (HCC) | | | | [address] | [place], [address] | (Primary Dx) | | | | [place], [place] | [place], [place] | | | | | [address] | [address] | | | | | [phone] | | | +--------+ + + + [...]
--- OUTSIDE RECORDS SUMMARY | ~2019-09-08 | XMS | Encounter Summary ---
Demographics + + + | Address | [address] | | | [place] [address] | + + + | Home Phone [...] + | India Tilley | ECON | [address] | | | | | [place], [place] | | | | | [address] | | + + + + + | Yina La | ECON | Unknown | | + + + + + | Yina Peterson | ECON | Unknown | | + + + + + | Leatha Casillas | ECON | Unknown | | + + + + + Care Team Providers + +------+ + | Care Furniture Sander Name | Role | Phone | + +------+ + PCP | Unavailable | + +------+ + Encounter Details +--------+ + + + + | Date | Type | Department | Care Team | Description | +--------+ + + + + | 01/03/ | Episode | [facility] [place] [facility] | Mike Pearson | | | 2018 | Changes | SURGERY [address] | [address], [address] | | | | | [place] | | | | | | [address] | | | | | | [phone] | | | +--------+ + + + [...]
--- OUTSIDE RECORDS SUMMARY | ~2019-09-08 | XMS | Encounter Summary ---
Demographics + + + | Address | [address] | | | [place] [address] | + + + | Home Phone [...] Author | [facility] | | | and [place] | + + + | Organization | [facility] | | | and [place] | + + + | Address | Unknown | + + + | Phone | Unavailable | + + + Support + + + + + | Name | Relationship | Address | Phone | + + + + + | India Tilley | ECON | [address] | | | | | [place], [place] | | | | | [address] | | + + + + + [...] Reason | Comments | +---------+ + | Field Pipelines Supervisor | | +---------+ + Encounter Details +--------+ + + + + | Date | Type | Department | Care Team | Description | +--------+ + + + + | 12/12/ | Telephone | [facility] | Scott Koroma, | Field Pipelines Supervisor | | 2018 | | ORTHOPEDIC SURGERY | [address] [facility] | | | | | [address] [facility] | [place] | | | | | [place] | [address] | | | | | [address] | | | | | | [phone] | | | +--------+ + + + [...]
--- OUTSIDE RECORDS SUMMARY | ~2019-09-08 | XMS | Encounter Summary ---
Demographics + + + | Address | [address] | | | [place] [address] | + + + | Home Phone [...] + + + | Author | and [facility] | | | and [place] | + + + | Organization | [facility] | | | and [place] | + + + | Address | Unknown | + + + | Phone | Unavailable | + + + Support + + + + + | Name | Relationship | Address | Phone | + + + + + | India Tilley | ECON | [address] | | | | | [place], [place] | | | | | [address] | | + + + + + | Yina La | ECON | Unknown | | + + + + + | Yina Peterson | ECON | Unknown | | + + + + + | Leatha Casillas | ECON | Unknown | | + + + + + Care Team Providers + +------+ + | Care Break Out Man Name | Role | Phone | + +------+ + PCP | Unavailable | + +------+ + Encounter Details +--------+ + + + + | Date | Type | Department | Care Team | Description | +--------+ + + + + | 05/18/ | Orders Only | [facility] | Fabiana Miller, | | | 2018 | | INFECTIOUS DISEASE | Nick Apodaca MD | | | | | [address] | [address] | | | | | [place], [place] | [place] [address] | | | | | [address] | [phone] | | | | | [phone] | | | +--------+ + + + [...] | | REFERENCE | | | | [facility];[address] [facility] | | LAB | | | | Blvd;[place] | | [facility] | | | | [id number]: Testing | | LABORATORY | | | | performed at [facility], [address] | | | | | | [facility], | | | | | | [place] [address] | | | | + + + + + + + + | Specimen | + + | | + + + + + + + | Performing | Address | City/State/Zipcode | Phone Number | | Organization | | | | + + + + + | REFERENCE LAB | [address] [place] [address] | [place] [address] | [phone] | | [facility] | Blvd. | | | | LABORATORY | | | | + + + + + | REFERENCE LAB | [address] [place] [address] | [place] [address] | | | [facility] | Blvd. | | | | LABORATORY | | | | + + + + + documented in this encounter Visit Diagnoses Not on filedocumented in this encounter"
--- OUTSIDE RECORDS SUMMARY | ~2019-09-08 | XMS | Encounter Summary ---
Demographics + + + | Address | [address] | | | [place] [address] | + + + | Home Phone [...] | Author | [facility] | | | and [place] | + + + | Organization | [facility] | | | and [place] | + + + | Address | Unknown | + + + | Phone | Unavailable | + + + Support + + + + + | Name | Relationship | Address | Phone | + + + + + | India Tilley | ECON | [address] | | | | | [place], [place] | | | | | [address] | | + + + + + | Yina La | ECON | Unknown | | + + + + + | Yina Peterson | ECON | Unknown | | + + + + + | Leatha Casillas | ECON | Unknown | | + + + + + Care Team Providers + +------+ + | Care Dog Beautician Name | Role | Phone | + +------+ + PCP | Unavailable | + +------+ + Reason for Visit +--------+ + | Reason | Comments | +--------+ + | Other | | +--------+ + Encounter Details +--------+ + + + + | Date | Type | Department | Care Team | Description | +--------+ + + + + | 06/01/ | Telephone | [facility] | Gopi Muñoz | Other | | 2019 | | NEPHROLOGY [address] | M, DO [address] | | | | | [facility] | [place], [facility] 100 | | | | | [place], [place] | [place] | | | | | [address] | [address] | | | | | [phone] | | | +--------+ + + + [...]
--- OUTSIDE RECORDS SUMMARY | ~2019-09-08 | XMS | Encounter Summary ---
Demographics + + + | Address | [address] | | | [place] [address] | + + + | Home Phone [...] Author | [facility] | | | and [place] | + + + | Organization | [facility] | | | and [place] | + + + | Address | Unknown | + + + | Phone | Unavailable | + + + Support + + + + + | Name | Relationship | Address | Phone | + + + + + | India Tilley | ECON | [address] | | | | | [place], [place] | | | | | [address] | | + + + + + | Yina La | ECON | Unknown | | + + + + + | Yina Peterson | ECON | Unknown | | + + + + + | Leatha Casillas | ECON | Unknown | | + + + + + Care Team Providers + +------+ + | Care Engraver Name | Role | Phone | + +------+ + PCP | Unavailable | + +------+ + Encounter Details +--------+ + + + + | Date | Type | Department | Care Team | Description | +--------+ + + + + | 06/19/ | Telephone | [facility] | Ibis Arriola | | | 2019 | | [facility] | L, RN | | | | | [address] | | | | | | [place] | | | | | | [address] | | | | | | [phone] | | | +--------+ + + + [...]
--- OUTSIDE RECORDS SUMMARY | ~2019-09-08 | XMS | Clinical Summary ---
Demographics + + + | Address | [address] | | | [place] [address] | + + + | Home Phone [...] + | Author | [facility]Historical as of | | | 04-29-19) | + + + | Organization | [facility] (Historical as of | | | 04-29-19) [...] Team Providers + +------+ + | Care Dining Room Manager Name | Role | Phone | [...]
--- OUTSIDE RECORDS SUMMARY | ~2019-09-08 | XMS | Encounter Summary ---
Demographics + + + | Address | [address] | | | [place] [address] | + + + | Home Phone [...] + | Author | [facility] | | | and [place] | + + + | Organization | [facility] | | | and [place] | + + + | Address | Unknown | + + + | Phone | Unavailable | + + + Support + + + + + | Name | Relationship | Address | Phone | + + + + + | India Tilley | ECON | [address] | | | | | [place], [place] | | | | | [address] | | + + + + + | Yina La | ECON | Unknown | | + + + + + | Yina Peterson | ECON | Unknown | | + + + + + | Leatha Casillas | ECON | Unknown | | + + + + + Care Team Providers + +------+ + | Care Delivery Mgr Name | Role | Phone | [...] | | | | | [address] | [place], [place] | | | | | [place], [place] | [address] | | | | | [address] | | | | | | [phone] | | | +--------+ + + + [...] +----+---+ + + | | 1 | [place] | | | | 2 | 43-degrees [...] +----+---+ + + | | 1 | [place] off | | | | 3 | [...]
--- OUTSIDE RECORDS SUMMARY | ~2019-09-08 | XMS | Encounter Summary ---
Demographics + + + | Address | [address] | | | [place] [address] | + + + | Home Phone [...] Author | [facility] | | | and [place] | + + + | Organization | [facility] | | | and [place] | + + + | Address | Unknown | + + + | Phone | Unavailable | + + + Support + + + + + | Name | Relationship | Address | Phone | + + + + + | India Tilley | ECON | [address] | | | | | [place], [place] | | | | | [address] | | + + + + + | Yina La | ECON | Unknown | | + + + + + | Yina Peterson | ECON | Unknown | | + + + + + | Leatha Casillas | ECON | Unknown | | + + + + + Care Team Providers + +------+ + | Care Full Stack Developer Name | Role | Phone | [...] | | | | renal | PA-C [address] | [address] [place] [address] | | | | | disease | | [address]orden [place] | | | | | ([facility]) | CONFEDERATED | [address] | | | | | Procedures | WAY | [place] | | | | | [place] OFFICE | [place], | [address] Phone: | | | | | OUTPATIENT | [place] [address] | [phone] | | | | | VISIT 25 | Phone: | Fax: | | | | | MINUTES | [phone] | [phone] | | | | | | Fax: | | | | | | | [phone] | | +--------+--------+ + + + + Encounter Details +--------+ + + + + | Date | Type | Department | Care Team | Description | +--------+ + + + + | 04/25/ | Off-Site | [facility] | Gopi Muñoz | End stage renal | | 2018 | Visit | NEPHROLOGY [address] | M, DO [address] | disease (HCC) | | | | [address] | [place], [place] [address] | (Primary Dx) | | | | [place] | [place] | | | | | [address] | [address] | | | | | [phone] | | | +--------+ + + + [...] in touch with the CHR at the [facility], and she states that "she has not. " She will not provide a direct answer why she does not confer directly with [facility] for better resources? She de nies acute [...] - per Med list received from Dr. Woamck office 04/19/1 8. Glucose Blood (TRUE METRIX [...] candidate to get in touch with a [place] healthcare representative at the [facility] for some immediate madiha tance. [...] here in the [facility]. : Olema Kierra [place]. aSntos Stephenson MD, [facility] documented in thi s encounter Plan of Treatment Not on filedocumented as of this encounter Visit Diagnoses + + | Diagnosis | + + | End stage renal disease (HCC) - Primary End stage renal disease | + + documented in this encounter
--- OUTSIDE RECORDS SUMMARY | ~2019-09-08 | XMS | Encounter Summary ---
Demographics + + + | Address | [address] | | | [place] [address] | + + + | Home Phone [...] + | India Tilley | ECON | [address] | | | | | [place], [place] | | | | | [address] | | + + + + + | Yina La | ECON | Unknown | | + + + + + | Yina Peterson | ECON | Unknown | | + + + + + | Leatha Casillas | ECON | Unknown | | + + + + + Care Team Providers + +------+ + | Care Plant Control Aide Name | Role | Phone | + +------+ + | Renato Pierson TAPE KELLER OPERATOR | PCP | | + +------+ [...] | | disease) on | [address] | [place], [place] | | | | | dialysis | [address] | [address] | | | | | ([facility]) | [address] | Phone: | | | | | Procedures | [place], [place] | [phone] | | | | | IR Inj | [address] | Fax: | | | | | Dialysis | Phone: | | | | | | Circuit | [phone] | | | | | | | Fax: | | | | | | | [phone] | | + +--------+ + + + + Reason for Visit + + + | Reason | Comments | + + + | Procedure | | + + + Encounter Details +--------+ + + + + | Date | Type | Department | Care Team | Description | +--------+ + + + + | 07/31/ | Telephone | [facility] | Louise Fink, | Procedure | | 2019 | | VASCULAR SURGERY | RN | | | | | [address] | | | | | | [place] | | | | | | [address] | | | | | | [phone] | | | +--------+ + + + [...]
--- OUTSIDE RECORDS SUMMARY | ~2019-09-08 | XMS | Encounter Summary ---
Demographics + + + | Address | [address] | | | [place] [address] | + + + | Home Phone [...] Author | [facility] | | | and [place] | + + + | Organization | [facility] | | | and [place] | + + + | Address | Unknown | + + + | Phone | Unavailable | + + + Support + + + + + | Name | Relationship | Address | Phone | + + + + + | India Tilley | ECON | [address] | | | | | [place], [place] | | | | | [address] | | + + + + + | Yina La | ECON | Unknown | | + + + + + | Yina Peterson | ECON | Unknown | | + + + + + | Leatha Casillas | ECON | Unknown | | + + + + + Care Team Providers + +------+ + | Care Commodity Specialist Name | Role | Phone | [...] + + | 04/04/ | Telephone | [place] | Zari Azul | Hospital Follow-up | | 2019 | | Internal Medicine | Gregg RN | | | | | Hospitalists [address] | | | | | | [address] [place] | | | | | | [address] | | | | | | [phone] | | | +--------+ + + + [...]
--- OUTSIDE RECORDS SUMMARY | ~2019-09-08 | XMS | Encounter Summary ---
Demographics + + + | Address | [address] | | | [place] [address] | + + + | Home Phone [...] | [facility] | | | and [place] | + + + | Organization | [facility] | | | and [place] | + + + | Address | Unknown | + + + | Phone | Unavailable | + + + Support + + + + + | Name | Relationship | Address | Phone | + + + + + | India Tilley | ECON | [address] | | | | | [place], [place] | | | | | [address] | | + + + + + | Yina La | ECON | Unknown | | + + + + + | Yina Peterson | ECON | Unknown | | + + + + + | Leatha Casillas | ECON | Unknown | | + + + + + Care Team Providers + +------+ + | Care Supervisor Shipping Name | Role | Phone | + +------+ + PCP | Unavailable | + +------+ + Encounter Details +--------+ + + + + | Date | Type | Department | Care Team | Description | +--------+ + + + + | 12/20/ | Hospital | [facility] | [facility], | | | 2008 - | Encounter | MED CTR CANCER | Venkatesh Forte MD [address] | | | | | [place] [address] | [facility] | | | 01/10/ | | [place], [place] | [place] [address] | | | 2008 | | [address] | [phone] | | | | | [phone] | | | +--------+ + + + [...]
--- OUTSIDE RECORDS SUMMARY | ~2019-09-08 | XMS | Encounter Summary ---
Demographics + + + | Address | [address] | | | [place] [address] | + + + | Home Phone [...] | Author | [facility] | | | and [place] | + + + | Organization | [facility] | | | and [place] | + + + | Address | Unknown | + + + | Phone | Unavailable | + + + Support + + + + + | Name | Relationship | Address | Phone | + + + + + | India Tilley | ECON | [address] | | | | | [place], [place] | | | | | [address] | | + + + + + | Yina La | ECON | Unknown | | + + + + + | Yina Peterson | ECON | Unknown | | + + + + + | Leatha Casillas | ECON | Unknown | | + + + + + Care Team Providers + +------+ + | Care Core Drill Operator Helper Name | Role | Phone | + +------+ + PCP | Unavailable | + +------+ + Encounter Details +--------+ + + + + | Date | Type | Department | Care Team | Description | +--------+ + + + + | 12/05/ | Hospital | [facility] | Carlos Sandoval | | | 2007 | Encounter | MED CTR XRAY [address] | MD Kwame [address] [facility] | | | | | [place] | [place], [place] | | | | | [place] [address] | [id number] | | | | | [phone] | | | +--------+ + + + [...]
--- OUTSIDE RECORDS SUMMARY | ~2019-09-08 | XMS | Encounter Summary ---
Demographics + + + | Address | [address] | | | [place] [address] | + + + | Home Phone [...] [facility] | | | and [place] | + + + | Organization | [facility] | | | and [place] | + + + | Address | Unknown | + + + | Phone | Unavailable | + + + Support + + + + + | Name | Relationship | Address | Phone | + + + + + | India Tilley | ECON | [address] | | | | | [place], [place] | | | | | [address] | | + + + + + | Yina La | ECON | Unknown | | + + + + + | Yina Peterson | ECON | Unknown | | + + + + + | Leatha Casillas | ECON | Unknown | | + + + + + Care Team Providers + +------+ + | Care Floor Service Worker Spring Name | Role | Phone | + [...] + + | 03/23/ | Emergency | [facility] | Carlos Baker | Osteomyelitis, | | 2019 - | | MED CTR EMERGENCY | MD Venkatesh [address] | unspecified site, | | | | CENTER [address] | [address] [place] | unspecified type | | 03/24/ | | [place], [place] | [place] [address] | ([facility]LY [facility]) (Primary Dx); | | 2018 | | [address] | [phone] | Acute midline | | | | [phone] | | thoracic back pain; | | [...] | | | | ([facility]), Right hip | | | | | [...] R?MRN: | | | | | | [id number] | | | [id number] | | | riteri | | | [...] | | | St. | | | [place] | | | y | | | [...] | | | [facility] | | | [facility] | | | [facility] [address] | | | [facility] | | | St. | | | [place] | | | y | | | [...] | | | St. | | | [place] | | | y H. | | [...] | | e of | | | cherokee | | | | | | mckeon [...] | | | St. | | | [place] | | | y H. | | [...] the | | | | | | retail sales associate bilingual | | | al | | | [...] | | | St. | | | [place] | | | y H. | | [...] | | e of | | | cherokee | | | | | | mckeon [...] | | | Luke[facility] | | | Francis | | | Francis | | | ID | | | [...] | | | Luke's | | | Francis | | | Francis | | | ID | | | [...] | | | Luke's | | | Francis | | | Francis | | | ID | | | [...] | | | Luke[facility] | | | Francis | | | Francis | | | ID | | | [...] | | | [facility] | | | Francis | | | Francis | | | ID | | | [...] | | | [facility] | | | [place] | | | | | | HEALTH [...] | | | [id number] | | | [id number] | | | [address] | | | [...] ST. | [address] | [place], [place] | [phone] | | [facility] | | [address] | | | - LABORATORY | | [...] + | [address] | [address] | [place] | [phone] | | [facility] | | [address] | | | - LABORATORY | | [...] + | [facility] | [address] | [place] | [phone] | | [facility] | | [address] | | | - LABORATORY | | [...] [address] | [place] | [phone] | | [facility] | | [address] | | | - LABORATORY | | [...] 3.78 (H) | 0.55 - 1.02 | [facility] | | | | | mg/dL | [facility] | | | | | | MEDICAL | | | | | | CENTER - | | | | | | LABORATORY | | + + + + + + | eGFR if not | 12 (L)Comment: | >=60 | [place] | | | | GLOMERULAR FILTRATION | mL/min/1.73m2 | [facility] | | | [facility]INC[facility]IAN | RATE,ESTIMATED | | MEDICAL | | | | mL/min/1.22e7Bmtn than | | CENTER - | | [...] [address] | [place] | [phone] | | [facility] | | [address] | | | - LABORATORY | | [...] [address] | [place] | [phone] | | [facility] | | [address] | | | - LABORATORY | | [...] [address] | [place] | [phone] | | [facility] | | [address] | | | - LABORATORY | | [...] lymphadenopathy. | | | LUNGS:There is a gwexk-xs-jricvlyb layering left pleural effusion. | | | [...] or hilar | | lymphadenopathy.LUNGS:There is a zcdge-bv-yxfqfpyy layering left pleural effusion. | | There [...] very highly suspicious for osteomyelitis/discitis at the P60-R18snebx.Small to | | moderate layering left pleural [...] | | | | PRN, Other, Starting [facility] 03/23/19 | | PM PDT | [...] 8:22 | | | | | ONCE, [facility] 03/23/19 at 2014, For 1 | [...] | | | | 90 Minutes, ONCE, [facility] 03/23/19 at | | | | | | | 2240, For 1 dose, Keep in | | | | | | | refrigerator., Indications: | | | | | | | Osteomyelitis | | | | | | + +---------+ + +-------+---+ + +---+ | | | + +---+ | vancomycin per pharmacy | | | PHARMACY CONSULT, [facility] | | | 03/23/19 at 2229, Indications: | | | Osteomyelitis | | + +---+ | | | + +---+ documented in this encounter
--- OUTSIDE RECORDS SUMMARY | ~2019-09-08 | XMS | Encounter Summary ---
Demographics + + + | Address | [address] | | | [place] [address] | + + + | Home Phone [...] Author | [facility] | | | and [place] | + + + | Organization | [facility] | | | and [place] | + + + | Address | Unknown | + + + | Phone | Unavailable | + + + Support + + + + + | Name | Relationship | Address | Phone | + + + + + | India Tilley | ECON | [address] | | | | | [place], [place] | | | | | [address] | | + + + + + | Yina La | ECON | Unknown | | + + + + + | Yina Peterson | ECON | Unknown | | + + + + + | Leatha Casillas | ECON | Unknown | | + + + + + Care Team Providers + +------+ + | Care Floor Worker Transfer Bay Name | Role | Phone | + +------+ + | Renato Pierson INDOOR LANDSCAPER/GARDENER | PCP | | + +------+ + [...] | Infection | [place] | [address]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 | [place], | [place], | | | | | 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 [address] | [place] [address] | | | | | al disc | [address] | Phone: | | | | | (pyogenic), | [place], [place] | [phone] | | | | | thoracic | [address] | Fax: | | | | | region (HCC) | Phone: | [phone] | | | | | | [phone] | | | | | | 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: | | | | | | s of | [phone] | | | | | | thoracic | | | | | | | vertebra | | | | | | | ([facility]) | | | | | [...] + + | 07/13/ | Hospital | [facility] | Fabiana Miller, | Canceled (OTHER) | | 2019 | Encounter | CENTER IR INTRA OP | Nick Apodaca MD | | | | | [address] | [address] | | | | | [place], [place] | [place] [address] | | | | | [address] | [phone] | | | | | [phone] | | | | | | | [address] [place] | | | | | | MD [address] | | | | | | [address] | | | | | | [place] [address] | | | | | | [phone] | | | | | | | [...]
--- OUTSIDE RECORDS SUMMARY | ~2019-09-08 | XMS | Encounter Summary ---
Demographics + + + | Address | [address] | | | [place] [address] | + + + | Home Phone [...] | Author | [facility] | | | and [place] | + + + | Organization | [facility] | | | and [place] | + + + | Address | Unknown | + + + | Phone | Unavailable | + + + Support + + + + + | Name | Relationship | Address | Phone | + + + + + | India Tilley | ECON | [address] | | | | | [place], [place] | | | | | [address] | | + + + + + | Yina La | ECON | Unknown | | + + + + + | Yina Peterson | ECON | Unknown | | + + + + + | Leatha Casillas | ECON | Unknown | | + + + + + Care Team Providers + +------+ + | Care Accounting Administrative Assistant Name | Role | Phone | + +------+ + PCP | Unavailable | + +------+ + Encounter Details +--------+ + + + + | Date | Type | Department | Care Team | Description | +--------+ + + + + | 10/27/ | Abstract | [facility] | Gopi Muñoz | | | 2017 | | NEPHROLOGY [address] | M, DO [address] | | | | | [address] [facility] | [place], [facility] 100 | | | | | [place], [place] | [place] | | | | | [address] | [address] | | | | | [phone] | | | +--------+ + + + [...]
--- OUTSIDE RECORDS SUMMARY | ~2019-09-08 | XMS | Encounter Summary ---
Demographics + + + | Address | [address] | | | [place] [address] | + + + | Home Phone [...] | Author | [facility] | | | and [place] | + + + | Organization | [facility] | | | and [place] | + + + | Address | Unknown | + + + | Phone | Unavailable | + + + Support + + + + + | Name | Relationship | Address | Phone | + + + + + | India Tilley | ECON | [address] | | | | | [place], [place] | | | | | [address] | | + + + + + | Yina La | ECON | Unknown | | + + + + + | Yina Peterson | ECON | Unknown | | + + + + + | Leatha Casillas | ECON | Unknown | | + + + + + Care Team Providers + +------+ + | Care Inspector Metal Fabricating Name | Role | Phone | + [...] + + | 04/04/ | Telephone | [place] | Zari Azul | Hospital Follow-up | | 2019 | | Internal Medicine | Gregg RN | | | | | Hospitalists [address] | | | | | | [address] [place] | | | | | | [address] | | | | | | [phone] | | | +--------+ + + + [...]
--- OUTSIDE RECORDS SUMMARY | ~2019-09-08 | XMS | Encounter Summary ---
Demographics + + + | Address | [address] | | | [place] [address] | + + + | Home Phone [...] Author | [facility] | | | and [place] | + + + | Organization | [facility] | | | and [place] | + + + | Address | Unknown | + + + | Phone | Unavailable | + + + Support + + + + + | Name | Relationship | Address | Phone | + + + + + | India Tilley | ECON | [address] | | | | | [place], [place] | | | | | [address] | | + + + + + | Yina La | ECON | Unknown | | + + + + + | Yina Peterson | ECON | Unknown | | + + + + + | Leatha Casillas | ECON | Unknown | | + + + + + Care Team Providers + +------+ + | Care Metal Casket Assembler Name | Role | Phone | + +------+ + PCP | Unavailable | + +------+ + Reason for Visit + + + | Reason | Comments | + + + | Referral | [facility] | + + + Encounter Details +--------+ + + + + | Date | Type | Department | Care Team | Description | +--------+ + + + + | 05/26/ | Documentati | [facility] | Carlos Jansen, | Referral ([facility] | | 2019 | on | INFECTIOUS DISEASES | MD [address] | [facility] | | | | [address] | [place] [address] | [place]) | | | | [place] | [phone] | | | | | [address] | | | | | | [phone] | | | +--------+ + + + [...] 11:27 AM PDTReferral was received 05/18 from [facility] requesting to change ID docs from Dr Min to Dr Jansen per Dr Muñoz's reque st for patient's osteomyelitis. Patient saw Dr Jansen [facility] and upon d/c she was moved to [...] home. I faxed back his note to [phone]. I did not enter a referral to avoid confusion with anna magaña current referral for [facility]. Will discard additional records in 30 days. documented in this encou nter Plan of Treatment Not on filedocumented as of this encounter Visit Diagnoses Not on filedocumented in this encounter"
--- OUTSIDE RECORDS SUMMARY | ~2019-09-08 | XMS | Encounter Summary ---
Demographics + + + | Address | [address] | | | [place] [address] | + + + | Home Phone [...] + | Author | [facility] | | | and [place] | + + + | Organization | [facility] | | | and [place] | + + + | Address | Unknown | + + + | Phone | Unavailable | + + + Support + + + + + | Name | Relationship | Address | Phone | + + + + + | India Tilley | ECON | [address] | | | | | [place], [place] | | | | | [address] | | + + + + + | Yina La | ECON | Unknown | | + + + + + | Yina Peterson | ECON | Unknown | | + + + + + | Leatha Casillas | ECON | Unknown | | + + + + + Care Team Providers + +------+ + | Care Engagement Quality Consultant Name | Role | Phone | [...] + + | 06/03/ | Telephone | [facility] | Darlin Moseley W, | Dialysis | | 2018 | | NEPHROLOGY [address] | [address] | (Asymptomatic) | | | | [address] | [address] | | | | | [place] | [place] [address] | | | | | [address] | [phone] | | | | | [phone] | | | +--------+ + + + [...]
--- OUTSIDE RECORDS SUMMARY | ~2019-09-08 | XMS | Encounter Summary ---
Demographics + + + | Address | [address] | | | [place] [address] | + + + | Home Phone [...] | [facility] | | | and [place] | + + + | Organization | [facility] | | | and [place] | + + + | Address | Unknown | + + + | Phone | Unavailable | + + + Support + + + + + | Name | Relationship | Address | Phone | + + + + + | India Tilley | ECON | [address] | | | | | [place], [place] | | | | | [address] | | + + + + + | Yina La | ECON | Unknown | | + + + + + | Yina Peterson | ECON | Unknown | | + + + + + | Leatha Casillas | ECON | Unknown | | + + + + + Care Team Providers + +------+ + | Care Inspector Shells Name | Role | Phone | + +------+ + PCP | Unavailable | + +------+ + Encounter Details +--------+ + + + + | Date | Type | Department | Care Team | Description | +--------+ + + + + | 05/26/ | Abstract | [facility] | Darlin Moseley W, | | | 2016 | | NEPHROLOGY [address] | [address] | | | | | [address] | [address] [facility] | | | | | [place] | [place] [address] | | | | | [address] | [phone] | | | | | [phone] | | | +--------+ + + + [...] 1.012 | | EXTERNAL | | | [place], | | | LAB | | | [...]
--- OUTSIDE RECORDS SUMMARY | ~2019-09-08 | XMS | Encounter Summary ---
Demographics + + + | Address | [address] | | | [place] [address] | + + + | Home Phone [...] Author | [facility] | | | and [place] | + + + | Organization | [facility] | | | and [place] | + + + | Address | Unknown | + + + | Phone | Unavailable | + + + Support + + + + + | Name | Relationship | Address | Phone | + + + + + | Inida Tilley | ECON | [address] | | | | | [place], [place] | | | | | [address] | | + + + + + | Yina La | ECON | Unknown | | + + + + + | Yina Peterson | ECON | Unknown | | + + + + + | Leatha Casillas | ECON | Unknown | | + + + + + Care Team Providers + +------+ + | Care Provider Network Manager Name | Role | Phone | [...] | [address] | [address], [place] | | | | | [place] | [address] [place] | | | | | [address] | [address] | | | | | [phone] | | | +--------+ + + + [...] Referral packet received from Dora Bruno PA-C, [facility] to nephrology. Sent to Malik owens signed by Tatiana Rendon at 03/24/2017 1:05 PM PDTdocumented in this encounter Plan of Treatment Not on filedocumented as of this encounter Visit Diagnoses Not on filedocumented in this encounter"
--- OUTSIDE RECORDS SUMMARY | ~2019-09-08 | XMS | Encounter Summary ---
Demographics + + + | Address | [address] | | | [place] [address] | + + + | Home Phone [...] [facility] | | | and [place] | + + + | Organization | [facility] | | | and [place] | + + + | Address | Unknown | + + + | Phone | Unavailable | + + + Support + + + + + | Name | Relationship | Address | Phone | + + + + + | India Tilley | ECON | [address] | | | | | [place], [place] | | | | | [address] | | + + + + + | Yina La | ECON | Unknown | | + + + + + | Yina Peterson | ECON | Unknown | | + + + + + | Leatha Casillas | ECON | Unknown | | + + + + + Care Team Providers + +------+ + | Care Banquet Set Up Person Name | Role | Phone | + +------+ + PCP | Unavailable | + +------+ + Encounter Details +--------+ + + + + | Date | Type | Department | Care Team | Description | +--------+ + + + + | 09/25/ | Hospital | [facility] | [facility], | | | 2007 - | Encounter | [facility] | Venkatesh Forte MD [address] | | | | [place] [address] | [facility] | | | 10/13/ | | [place] | [place] [address] | | | 2007 | | [address] | [phone] | | | | | [phone] | | | +--------+ + + + [...]
--- OUTSIDE RECORDS SUMMARY | ~2019-09-08 | XMS | Encounter Summary ---
Demographics + + + | Address | [address] | | | [place] [address] | + + + | Home Phone [...] + | Author | [facility] | | | and [place] | + + + | Organization | [facility] | | | and [place] | + + + | Address | Unknown | + + + | Phone | Unavailable | + + + Support + + + + + | Name | Relationship | Address | Phone | + + + + + | India Tilley | ECON | [address] | | | | | [place], [place] | | | | | [address] | | + + + + + | Yina La | ECON | Unknown | | + + + + + | Yina Peterson | ECON | Unknown | | + + + + + | Leatha Casillas | ECON | Unknown | | + + + + + Care Team Providers + +------+ + | Care Architectural Technician Name | Role | Phone | [...] | 02/03/ | Office | [facility] | Scott Koroma, | Postop check | | 2019 | Visit | ORTHOPEDIC SURGERY | MD [address] | (Primary Dx) | | | | [address] [facility] | [place] | | | | | [place] | [address] | | | | | [address] | | | | | | [phone] | | | +--------+---------+ + + + [...]
--- OUTSIDE RECORDS SUMMARY | ~2019-09-08 | XMS | Encounter Summary ---
Demographics + + + | Address | [address] | | | [place] [address] | + + + | Home Phone [...] | Author | [facility] | | | and [place] | + + + | Organization | [facility] | | | and [place] | + + + | Address | Unknown | + + + | Phone | Unavailable | + + + Support + + + + + | Name | Relationship | Address | Phone | + + + + + | India Tilley | ECON | [address] | | | | | [place], [place] | | | | | [address] | | + + + + + | Yina La | ECON | Unknown | | + + + + + | Yina Peterson | ECON | Unknown | | + + + + + | Leatha Casillas | ECON | Unknown | | + + + + + Care Team Providers + +------+ + | Care Label Maker Name | Role | Phone | + +------+ + PCP | Unavailable | + +------+ + Encounter Details +--------+ + + + + | Date | Type | Department | Care Team | Description | +--------+ + + + + | 11/08/ | Imaging | [facility] Provider, | | | 2018 | Exam | [facility] EXTER[facility] | MD [address] | | | | | IMAGING | [address] | | | | | [phone] | [place] [address] | | +--------+ + + + + [...] for comparison only - no result from [facility]. | [facility] | + + + + +---------+ + + | Performing | Address | City/State/Zipcode | Phone Number | | Organization | | | | + +---------+ + + | [facility] | | | | + +---------+ + + documented in this encounter Visit Diagnoses Not on filedocumented in this encounter"
--- OUTSIDE RECORDS SUMMARY | ~2019-09-08 | XMS | Encounter Summary ---
Demographics + + + | Address | [address] | | | [place] [address] | + + + | Home Phone [...] + + | Author | [facility] | | | and Kamaljitana | + + + | Organization | [facility] | | | and [place] | + + + | Address | Unknown | + + + | Phone | Unavailable | + + + Support + + + + + | Name | Relationship | Address | Phone | + + + + + | India Tilley | ECON | [address] | | | | [place], [place] | | | | | [address] | | + + + + + | Yina La | ECON | Unknown | | + + + + + | Yina Peterson | ECON | Unknown | | + + + + + | Leatha Casillas | ECON | Unknown | | + + + + + Care Team Providers + +------+ + | Care Slicing Machine Tender Name | Role | Phone [...] | Services | CKD | Gary, | [place] | | | Required | | (chronic | MD Mayelin | [address] | | | | | kidney | [address] | [facility] | | | | | disease) | [facility] | [place], [place] | | | | | stage 5, GFR | [place], [place] | [address] | | | | | less than | [address] | Phone: | | | | | 15 ml/min | Phone: | [phone] | | | | | (HCC) Type | [phone] | Fax: | | | | | 2 DM with | Fax: | [phone] | | | | | CKD stage 5 | [phone] | | | | | | and [...] + + | 11/01/ | Hospital | [facility] | Gopi Muñoz | Hypoglycemia; | | 2018 - | Encounter | [facility] | M, DO [address] | Hypothermia, initial | | | | [address] | [address] | encounter; CKD | | 11/09/ | | [place] [address] | [place], [place] | (chronic kidney | | 2018 | | [phone] | [address] | disease) stage 5, | | | | | | GFR less than 15 | | | | | Rupal Laguna MD | ml/min ([facility]); | | | | | [address] | Essential | | | | | [place], [place] | hypertension; | | | | | [address] | Sepsis, due to | | | | | | unspecified organism | | | | | Nora Leo MD | (HCC); Uremia; | | | | | [address] [facility] | Controlled type 2 | | | | | [place] [address] | diabetes mellitus | | | | | [phone] | with stage 5 chronic | | | | | | kidney disease not | | | | | | on chronic dialysis, | | | | | | with long-term | | | | | | current use of | | | | | | insulin ([facility]); End | | | | | | stage renal disease | | | | | | ([facility]); Type 2 DM | | [...] | | | | | | ([facility]); Streptococcal | | | | | | bacteremia; Acute | | | | | | hemodialysis | | | | | | encounter ([facility]) | +--------+ + + [...] might be differ ent from the original. [place] HOSPITALIST DISCHARGE SUMMARY Pt. Name/Age/: Ara [...] insulin glargine 100 units/mL injection (vial) aka: [facility]: Please refer to the H&P for full details and the most recent rounding rounding (progress) n ote. In short this is a 72-year-old woman, history of hypertension, diabetes mellitus type 2 on insulin, chronic kidney disease of stage V, CAD, who presented to [facility] after be ing found down in her [...] evaluation. At time of arrival to send [facility], patient was feeling much better and [...] n/a DISPOSITION AND DISCHARGE INSTRUCTIONS: Follow-up Information [facility] On 11/10/2017. Why: 1:00pm Contact information: [address] [place] [phone] Follow up In 3 days. Francisca Womack PA-C In 3 days. Specialty: Internal Medicine Contact information: [address] [place] [address] Hemodialysis In 1 day. Contact information: Appointment at 1:30 PM Condition: Patient being discharged with condition improved and stable Diet: renal, carbohydrate controlled Greater than 30 minutes were spent on discharge and coordination of post-hospital care. Electronically signed by: Mayelin Vega MD, 11/09/2017 11:06 [facility] Portions of this chart may have been created with [place] voice recognition software. Occasi onal wrong-word or sound-alike substitutions may have occurred due to the inherent mckeon itations of voice recognition software. Please read the chart carefully and recognize, using context, where these substitutions have occurred documented in this encounter Discharge Instructions AttachmentsThe following attachments cannot be sent through Care Everywhere.Balancing Calci um and Phosphorus, Kidney Disease (Cameroonian)Hemodialysis (Cameroonian)documented in this encounte r Medications at Time [...] + + +---------+ + + | [facility] | by Does not apply | | [...] DO - 11/09/2017 6:18 PM PST [facility] [address] [place] [address] PROGRESS NOTE Pt. Name/Age/: Ara Tilley 72 y.o. 1945 Med. Record Number: [id number] Date of admission: 11/01/2017 NEPHROLOGY HPI - [...] and she agreed. Nikki was raised in [place] and in [place], [place]. She has two brothers and two sisters, and h ad 4 children of her own. Her oldest child, daughter, two months ago. Nikki is gri eving her loss and teared up while talking about her. Her other children live in [facility] and one son has been in long-term for 23 years. She hasn't seen him since he was arr ested and is hopeful she will get to see him next year, as he is schedule to be released at that time. 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 She has at least 4 ye ars post high school education and studied [employer]. In the years prior to assisted, she worked at [employer]. Nikki's mother had chronic kidney disease and [...] and picking up and going to the [facility] [place] in [place]. She must plan it out, and that feels antithetical to her nature. Ginger escamilla was present and attentive while she discussed her grief around losing her family member s and her lifestyle, offered supportive middle school counselor. Chayo Ramirez RN - 11/09/2017 10:00 AM Cam GONZALEZ arrived at [facility]'s room around 0800 to [...] 11/08/2017 6:50 PM PSTThis provider, Palliative Care DATA WAREHOUSING MANAGER, met briefly with "Nikki" Jose Raul [...] this note might be different from the [facility] [place] HOSPITALIST PROGRESS NOTE Patient: Ara Tilley : 1945: Age: 72 y.o. MedRec: [id number] Admission date: 11/01/2017 Hospital day # : [...] 100 mg 100 [facility] lomas MD 100 mg at [...] mg/m L 0.25 [address] Technologist Nora Leo MD [NOV Hold] labetalol (NORMODYNE) [...] nephrology recs -Nephro rec permacath needed for shelter dialysis -continue ferrlecit and Epogen 3. CAD- no signs of ACS, EKG RBBB, trop 0.03 at OSH -Continue aspirin, lipitor 4. Hypothyroidism -TSH WNL -Continue levothyroxine 5. HTN uncontrolled -Continue Labetalol and furosemide -Continue losartan 25 mg daily PPX: HSQ FEN: renal Mayelin Vega 11/08/2017 11:50 [facility] Nora Headley MD - 11/08/2017 10:06 [...] be different f rom the original. [facility] [place] HOSPITALIST PROGRESS NOTE Patient: Ara Tilley : 1945: Age: 72 y.o. MedRec: [id number] Admission date: 11/01/2017 Hospital day # : [...] Procedure Component Value Units Date/Time Culture, Blood [[id number]] (Normal) Collected: 11/04/172121 Order Status: Completed Lab Status: Preliminary result Updated: 11/05/17930 Specimen: Blood from Line Culture No growth: Monitored continually by instrument for 5 days Culture, Blood [[id number]] (Normal) Collected: 11/04/172102 Order Status: Completed Lab [...] Wednesday to determine if permacath needed for oil heaterman dialysis -continue ferrlecit and Epogen 3. CAD- no signs of ACS, EKG RBBB, trop 0.03 at OSH -Continue aspirin, lipitor 4. Hypothyroidism -TSH WNL -Continue levothyroxine 5. HTN uncontrolled -Continue Labetalol and furosemide -restart losartan 25 mg daily PPX: HSQ FEN: renal Mayelin Vega 11/07/2017 12:57 [facility] Cordell Palmer MD - 11/07/2017 9:43 AM PSTFormatting of this note might be different from the maynor rollins [facility] NEPHROLOGY progress note Patient: Ara Tilley [...] Moseley MD Electronically signed: 11/07/2017 9:43 [facility] NEPHROLOGY Olegario Keen M D - 11/06/2017 2:15 PM PST [facility] [place] HOSPITALIST PROGRESS NOTE Patient: Ara Tilley : 1945: Age: 72 y.o. MedRec: [id number] Admission date: 11/01/2017 Hospital day # : [...] Procedure Component Value Units Date/Time Culture, Blood [[id number]] (Normal) Collected: 11/04/172121 Order Status: Completed Lab Status: Preliminary result Updated: 11/05/17930 Specimen: Blood from Line Culture No growth: Monitored continually by instrument for 5 days Culture, Blood [[id number]] (Normal) Collected: 11/04/17 2103 Order Status: Completed Lab Status: Preliminary result Updated: 11/05/17 0911 Specimen: Blood from Line Culture No growth: Monitored continually by instrument for 5 days Culture, Blood [[id number]] (Normal) Collected: 11/03/17 1506 Order Status: Completed [...] to determ ine if permacath needed for shelter dialysis CAD no signs of ACS, EKG [...] Oral BID PRN Olegario Peng 11/06/2017 14:15 [facility] Darlin Palmer M D - 11/06/2017 9:10 AM PST [facility] NEPHROLOGY progress note Patient: Ara Tilley [...] Continuous Infusions: Heparin Infusion 200 Units/hr (11/06/17 4177) PRN Meds:acetaminophen, albumin, albuterol, bisacodyl, Hypoglycemia Management [...] Moseley MD Electronically signed: 11/06/2017 9:11 [facility] NEPHROLOGY Olegario Keen M D - 11/05/2017 2:08 PM PST [facility] [place] HOSPITALIST PROGRESS NOTE Patient: Ara Tilley : 1945: Age: 72 y.o. MedRec: [id number] Admission date: 11/01/2017 Hospital day # : [...] Procedure Component Value Units Date/Time Culture, Blood [[id number]] (Normal) Collected: 11/04/172 Order Status: Completed Lab Status: Preliminary result Updated: 11/05/17 0931 Specimen: Blood from Line Culture No growth: Monitored continually by instrument for 5 days Culture, Blood [[id number]] (Normal) Collected: 11/04/172102 Order Status: Completed Lab Status: Preliminary result Updated: 11/05/17 0911 Specimen: Blood from Line Culture No growth: Monitored continually by instrument for 5 days Culture, Blood [[id number]] (Normal) Collected: 11/03/17 1506 Order Status: Completed Lab Status: Preliminary result Updated: 11/04/17 0311 Specimen: Blood from Peripheral Blood Culture No growth: Monitored continually by instrument for 5 days Culture, Blood [[id number]] (Abnormal) Collected: 11/03/17 0812 Order Status: Completed Lab Status: Preliminary result Updated: 11/05/17 0751 Specimen: Blood from Arm, Left Culture Positive Blood Culture (AA) Staphylococcus coagulase negative Comment: Identification and susceptibility to follow. Probable contaminant Gram Stain Result Gram positive cocci in clusters Comment: 2 of 4 bottles positive Culture, Respiratory, Lower, Smear [[id number]] Collected: 11/03/17 0727 Order Status: Completed Lab [...] Oral BID PRN Olegario Peng 11/05/2017 14:08 [facility] Darlin Palmer M D - 11/05/2017 1:53 PM PST [facility] NEPHROLOGY progress note Patient: Ara Tilley [...] Moseley MD Electronically signed: 11/05/2017 13:53 [facility] NEPHROLOGY Gopi Mckenna , DO - 11/04/2017 6:53 PM PST [facility] [address] [place] [address] PROGRESS NOTE Pt. Name/Age/: Ara Tilley 72 y.o. 1945 Med. Record Number: [id number] Date of admission: 11/01/2017 NEPHROLOGY HPI - [...] to high Inpt case load here at [facility]. 2. probable pyelonephritis?--Day #3 Ceftriaxone, Day [...] the origin al. [facility] [place] HOSPITALIST PROGRESS NOTE Patient: Ara Tilley : 1945: Age: 72 y.o. MedRec: [id number] Admission date: 11/01/2017 Hospital day # : [...] Procedure Component Value Units Date/Time Culture, Blood [[id number]] (Normal) Collected: 11/03/17 1506 Order Status: Completed Lab Status: Preliminary result Updated: 11/04/17 0311 Specimen: Blood from Peripheral Blood Culture No growth: Monitored continually by instrument for 5 days Culture, Blood [[id number]] (Normal) Collected: 11/03/17 0812 Order Status: Completed Lab Status: Preliminary result Updated: 11/03/17 2041 Specimen: Blood from Arm, Left Culture No growth: Monitored continually by instrument for 5 days Culture, Respiratory, Lower, Smear [[id number]] Collected: 11/03/17 0727 Order Status: Completed Lab Status: Preliminary result Updated: 11/03/17 1028 Specimen: Respiratory from Sputum, expectorated Gram Stain Result 3+ White Blood Cells 2+ Epithelial cells 2+ Gram positive cocci 2+ Gram positive bacilli 1+ Hyphael elements Influenza A and B RNA, NAAT [[id number]] (Normal) Collected: 11/02/17 1050 Order Status: Completed Lab Status: Final result Updated: 11/02/17 1125 Specimen: Respiratory from Nares Influenza A PCR Negative Influenza B PCR Negative Culture, Urine [[id number]] Collected: 11/02/17 0740 Order Status: Completed Lab Status: Preliminary result Updated: 11/03/17 1013 Specimen: Urine Culture >100,000 CFU/ml Lactose Fermenting Gram Negative Bacilli Comment: Identification and susceptibility to follow. Culture, Blood [[id number]] (Normal) Collected: 11/02/17 0024 Order Status: Completed Lab Status: Preliminary result Updated: 11/02/17 1241 Specimen: Blood from Peripheral Blood Culture No growth: Monitored continually by instrument for 5 days Culture, Blood [[id number]] (Abnormal) Collected: 11/02/17 0019 Order Status: Completed [...] 15:14 by Edison Short. Narrative: Culture, MRSA [[id number]] Collected: 11/01/17 2146 Order Status: Completed Lab [...] in chains -Repeat UA (+), urine culture >018718 GNB lactose fermenting -Continue ceftriaxone started 11/02, [...] Q30 Min PRN Olegario Peng 11/04/2017 7:21 [facility] Nick Aguillon, RN - 0 11/04/2017 1:06 AM PSTDialysis treatment started and Arterial pressures running in the -400s , trouble shooting ineffective, arterial and venous lines switched, pressures now -50s. Shama sarabia is running appropriately at this moment, will continue monitoring. Nick Guallpa Gopi Mckenna, DO - 11/03/2017 11:20 AM PST [facility] [address] [place], [place] [id number] PROGRESS NOTE Pt. Name/Age/: Ara Tilley 72 y.o. 1945 Med. Record Number: [id number] Date of admission: 11/01/2017 NEPHROLOGY HPI - [...] she is better nourished? PLAN 1. Dr. Quiors kindly agrees to place a temporary IJ [...] MD - 11/03/2017 7:07 AM PST [facility] [place] HOSPITALIST PROGRESS NOTE Patient: Ara Tilley : 1945: Age: 72 y.o. MedRec: [id number] Admission date: 11/01/2017 Hospital day # : [...] PH UA 6.0 5.0 - 8.0 Specific [place] 1.010 1.001 - 1.030 PROTEIN UA 100 [...] Date/Time Influenza A and B RNA, NAAT [[id number]] (Normal) Collected: 11/02/17 1050 Order Status: Completed Lab Status: Final result Updated: 11/02/17 1125 Specimen: Respiratory from Nares Influenza A PCR Negative Influenza B PCR Negative Culture, Urine [[id number]] Collected: 11/02/17 0740 Order Status: Sent Lab Status: In process Updated: 11/02/17 0758 Specimen: Urine Culture, Blood [[id number]] (Normal) Collected: 11/02/17 0024 Order Status: Completed Lab Status: Preliminary result Updated: 11/02/17 1241 Specimen: Blood from Peripheral Blood Culture No growth: Monitored continually by instrument for 5 days Culture, Blood [[id number]] (Abnormal) Collected: 11/02/17 0019 Order Status: Completed Lab Status: Preliminary result Updated: 11/02/17 1515 Specimen: Blood from Peripheral Blood Culture Positive Blood Culture (AA) Gram Stain Result Gram positive cocci in chains Comment: One of four Blood Culture bottles POSITIVE. Critical Result called to and read b ack by Kristen Irving on 11/02/2017 at 15:14 by Edison Short. Narrative: Culture, MRSA [[id number]] Collected: 11/01/17 2146 Order Status: Sent Lab [...] Oral BID PRN Olegario Peng 11/03/2017 7:08 [facility] olph, Ta Restrepo, [facility] - 11/02/2017 3:43 PM PST PHARMACY SERVICES: [...] strength, and directions X Pharmacy list names: [facility] REHABILITATOR (Prescription Monitoring Program) X [facility] insurance reported information X Care Everywhere [...] Prior to Admission Sig: Patient taking differently PHOTOGRAPHY INTERN as: Atorvastatin 20mg 1 tab by mouth nightly 1 tab by mouth every morning Calcium- vitamin d 600-400mg 1 tab by mouth twice daily 1 tab by mouth every morning Duloxetine 30mg DR 1 capsule by mouth daily Patient has not started this medication PHOTOGRAPHY INTERN, cortés s not filled at pharmacy [id number] 200mg by mouth twice daily 200mg by mouth every morning labetalol 200mg 1 tab by mouth twice daily Patient has not started this medication PHOTOGRAPHY INTERN, has not filled at pharmacy Best possible PHOTOGRAPHY INTERN medication list after pharmacy review: Prior to [...] performed and electronically signed by Puja Whitman, Gold [employer]er 2017 15:31 Electronically signed by: Ta Ronquillo [facility] 11/02/2017 15:40 Olegario Keen MD - 11/02/2017 7:21 AM PST [facility] [place] HOSPITALIST PROGRESS NOTE Patient: Ara Tilley : 1945: Age: 72 y.o. MedRec: [id number] Admission date: 11/01/2017 Hospital day # : [...] Procedure Component Value Units Date/Time Culture, Blood [[id number]] Collected: 11/02/1723 Order Status: Sent Lab Status: In process Updated: 11/02/1732 Specimen: Blood from Peripheral Blood Culture, Blood [[id number]] Collected: 11/02/1718 Order Status: Sent Lab Status: In process Updated: 11/02/1732 Specimen: Blood from Peripheral Blood Culture, MRSA [[id number]] Collected: 11/01/172145 Order Status: Sent Lab Status: [...] 0.9% Intravenous Continuous Olegario Peng 11/02/2017 7:38 [facility] documented in this e ncounter Plan [...] | | | than 15 ml/min ([facility]) | | | | | | Type 2 DM with CKD | | | | | | stage 5 and | | | | | | hypertension ([facility]) | | | | | | Acute hemodialysis | | | | | | encounter ([facility]) | | + + [...] | PERMACATH | | PST | ([facility]) | | + +--------+ [...] [address] | [place] | [phone] | | [facility] | | [address] | | | - LABORATORY | | [...] [address] | [place] | [phone] | | [facility] | | [address] | | | - LABORATORY | | [...] [address] | [place] | [phone] | | [facility] | | [address] | | | - LABORATORY | | [...] (H) | 7 - 18 mg/dL | [facility] | | | | | | [facility] | | | | | | MEDICAL | | | | | | CENTER - | | | | | | LABORATORY | | + + + + + + | Creatinine | 2.99 (H) | 0.60 - 1.30 | [place] | | | | | mg/dL | [facility] | | | | | | MEDICAL | | | | | | CENTER - | | | | | | LABORATORY | | + + + + + + | eGFR if not | 15 (L)Comment: | >=60 | [place] | | | | GLOMERULAR FILTRATION | mL/min/1.73m2 | [facility] | | | TRIN[facility]IAN | RATE,ESTIMATED | | MEDICAL | | | | mL/min/1.52a4Axiu than | | CENTER - | | [...] | [facility] | [address] | [place] | [phone] | | [facility] | | [address] | | | - LABORATORY | | [...] + | [facility] | [address] | [place] | [phone] | | [facility] | | [address] | | | - LABORATORY | | [...] [address] | [place] | [phone] | | [facility] | | [address] | | | - LABORATORY | | [...] Urine | appended report. These | | [facility] | | | | results have [...] [address] | [place] | [phone] | | [facility] | | [address] | | | - LABORATORY | | [...] [address] | [place] | [phone] | | [facility] | | [address] | | | - LABORATORY | | [...] [address] | [place] | [phone] | | [facility] | | [address] | | | - LABORATORY | | [...] + | [facility] | [address] | [place] | [phone] | | [facility] | | [address] | | | - LABORATORY | | [...] mL/min/1.73m2 | [facility] | | | [place] | RATE,ESTIMATED | | MEDICAL | | | | mL/min/1.61j1Usra than | | CENTER - | | [...] ST. | [address] | [place], [place] | [phone] | | [facility] | | [address] | | | - LABORATORY | | [...] [address] | [place] | [phone] | | [facility] | | [address] | | | - LABORATORY | | [...] [address] | [place] | [phone] | | [facility] | | [address] | | | - LABORATORY | | [...] + | [facility] | [address] | [place] | [phone] | | [facility] | | [address] | | | - LABORATORY | | [...] [address] | [place] | [phone] | | [facility] | | [address] | | | - LABORATORY | | [...] [address] | [place] | [phone] | | [facility] | | [address] | | | - LABORATORY | | [...] + | [facility] | [address] | [place] | [phone] | | [facility] | | [address] | | | - LABORATORY | | [...] [address] | [place] | [phone] | | [facility] | | [address] | | | - LABORATORY | | [...] [address] | [place] | [phone] | | [facility] | | [address] | | | - LABORATORY | | [...] | | GLOMERULAR FILTRATION | mL/min/1.73m2 | [facility] | | | TRINIDADIAN | RATE,ESTIMATED | | MEDICAL | | | | mL/min/1.60o8Gmve than | | CENTER - | | [...] + | [facility] | [address] | [place] | [phone] | | [facility] | | [address] | | | - LABORATORY | | [...] [address] | [place] | [phone] | | [facility] | | [address] | | | - LABORATORY | | [...] ST. | [address] | [place], [place] | [phone] | | [facility] | | [address] | | | - LABORATORY | | [...] + | [facility] | [address] | [place] | [phone] | | [facility] | | [address] | | | - LABORATORY | | [...] + | [facility] | [address] | [place] | [phone] | | [facility] | | [address] | | | - LABORATORY | | [...] [address] | [place] | [phone] | | [facility] | | [address] | | | - LABORATORY | | [...] [address] | [place] | [phone] | | [facility] | | [address] | | | - LABORATORY | | [...] [address] | [place] | [phone] | | [facility] | | [address] | | | - LABORATORY | | [...] mL/min/1.73m2 | [facility] | | | [place] | RATE,ESTIMATED | | MEDICAL | | | | mL/min/1.86o6Dgzb than | | CENTER - | | [...] + | [facility] | [address] | [place] | [phone] | | [facility] | | [address] | | | - LABORATORY | | [...] ST. | [address] | [place], [place] | [phone] | | [facility] | | [address] | | | - LABORATORY | | [...] + | [facility] | 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 | |Tricuspid Valve | |Bidu-rr-ekintycb tricuspid regurgitation suggestive of a mildly elevated [...] LA Volume: 60.67 ml | | EF Vvjqhjfwb26% | | | | Left Ventricle | [...] + | [facility] | [address] | [place] | [phone] | | [facility] | | [address] | | | - LABORATORY | | [...] + | [facility] | [address] | [place] | [phone] | | [facility] | | [address] | | | - LABORATORY | | [...] [address] | [place] | [phone] | | [facility] | | [address] | | | - LABORATORY | | [...] [address] | [place] | [phone] | | [facility] | | [address] | | | - LABORATORY | | [...] [address] | [place] | [phone] | | [facility] | | [address] | | | - LABORATORY | | [...] mL/min/1.73m2 | [facility] | | | TRINIDADIAN | RATE,ESTIMATED | | MEDICAL | | | | mL/min/1.46a8Elbu than | | CENTER - | | [...] [address] | [place] | [phone] | | [facility] | | [address] | | | - LABORATORY | | [...] [address] | [place] | [phone] | | [facility] | | [address] | | | - LABORATORY | | [...] + | [facility] | [address] | [place] | [phone] | | [facility] | | [address] | | | - LABORATORY | | [...] [address] | [place] | [phone] | | [facility] | | [address] | | | - LABORATORY | | [...] [address] | [place] | [phone] | | [facility] | | [address] | | | - LABORATORY | | [...] | [facility] | [address] | [place] | [phone] | | [facility] | | [address] | | | - LABORATORY | | [...] + | [facility] | [address] | [place] | [phone] | | [facility] | | [address] | | | - LABORATORY | | [...] [address] | [place] | [phone] | | [facility] | | [address] | | | - LABORATORY | | [...] + | [facility] | [address] | [place] | [phone] | | [facility] | | [address] | | | - LABORATORY | | [...] [address] | [place] | [phone] | | [facility] | | [address] | | | - LABORATORY | | [...] mL/min/1.73m2 | [facility] | | | TRINIDADIAN | RATE,ESTIMATED | | MEDICAL | | | | mL/min/1.08u7Rigl than | | CENTER - | | [...] [address] | [place] | [phone] | | [facility] | | [address] | | | - LABORATORY | | [...] [address] | [place] | [phone] | | [facility] | | [address] | | | - LABORATORY | | [...] | [facility] | [address] | [place] | [phone] | | [facility] | | [address] | | | - LABORATORY | | [...] [address] | [place] | [phone] | | [facility] | | [address] | | | - LABORATORY | | [...] [address] | [place] | [phone] | | [facility] | | [address] | | | - LABORATORY | | [...] [address] | [place] | [phone] | | [facility] | | [address] | | | - LABORATORY | | [...] + | [facility] | [address] | [place] | [phone] | | [facility] | | [address] | | | - LABORATORY | | [...] [address] | [place] | [phone] | | [facility] | | [address] | | | - LABORATORY | | [...] + | [facility] | [address] | [place] | [phone] | | [facility] | | [address] | | | - LABORATORY | | [...] [address] | [place] | [phone] | | [facility] | | [address] | | | - LABORATORY | | [...] + | [facility] | [address] | [place] | [phone] | | [facility] | | [address] | | | - LABORATORY | | [...] + | [facility] | [address] | [place] | [phone] | | [facility] | | [address] | | | - LABORATORY | | [...] [address] | [place] | [phone] | | [facility] | | [address] | | | - LABORATORY | | [...] | Performed at: 01 - [facility] [address], | REFERENCE LAB | | [place], [place] [id number] Metal Washing Machine Operator: Ernie Lee MD, Phone: | [facility] | | [phone] | | + + + + + + + + | Performing | Address | City/State/Zipcode | Phone Number | | Organization | | | | + + + + + | REFERENCE LAB | [address] | [place] [address] | [phone] | | [facility] | Drive [...] [address] | [place] | [phone] | | [facility] | | [address] | | | - LABORATORY | | [...] [address] | [place] | [phone] | | [facility] | | [address] | | | - LABORATORY | | [...] [facility] | | | | | | [facility] | | | | | | MEDICAL | | | | | | CENTER - | | | | | | LABORATORY | | + + + + + + | RBC | 2.97 (L) | 3.70 - 5.20 | [facility] | | | | | M/uL | [facility] | | [...] + | [facility] | [address] | [place] | [phone] | | [facility] | | [address] | | | - LABORATORY | | [...] test | | | | | | ([id number]). | | | | + + + + + + + + | Specimen | + + | Blood | + + + + + | Narrative | Performed At | + + + | Performed at: 01 - [facility] [place] [address], | REFERENCE LAB | | [place], [place] [id number] Metal Washing Machine Operator: Ernie Lee MD, Phone: | [facility] | | [phone] | | + + + + + + + + | Performing | Address | City/State/Zipcode | Phone Number | | Organization | | | | + + + + + | REFERENCE LAB | [address] | [place] [address] | [phone] | | [facility] | Drive [...] mL/min/1.73m2 | [facility] | | | TRINIDADIAN | RATE,ESTIMATED | | MEDICAL | | | | mL/min/1.04f4Blaw than | | CENTER - | | [...] [address] | [place] | [phone] | | [facility] | | [address] | | | - LABORATORY | | [...] [address] | [place] | [phone] | | [facility] | | [address] | | | - LABORATORY | | [...] + | [facility] | [address] | [place] | [phone] | | [facility] | | [address] | | | - LABORATORY | | [...] [address] | [place] | [phone] | | [facility] | | [address] | | | - LABORATORY | | [...] + | [facility] | [address] | [place] | [phone] | | [facility] | | [address] | | | - LABORATORY | | [...] [address] | [place] | [phone] | | [facility] | | [address] | | | - LABORATORY | | [...] [address] | [place] | [phone] | | [facility] | | [address] | | | - [...] [address] | [place] | [phone] | | [facility] | | [address] | | | - LABORATORY | | [...] | | | POC | | | [facility] | | [...] + | [facility] | [address] | [place] | [phone] | | [facility] | | [address] | | | - LABORATORY | | [...] [address] | [place] | [phone] | | [facility] | | [address] | | | - LABORATORY | | [...] [address] | [place] | [phone] | | [facility] | | [address] | | | - LABORATORY | | [...] [address] | [place] | [phone] | | [facility] | | [address] | | | - LABORATORY | | | | + + + + + POC Glucose (11/02/2017 10:34 AM PST) + +-------+ + + + | Component | Value | Ref Range | Performed | Pathologist | | | | | At | Signature | + +-------+ + + + | Glucose, | 74 | 70 - 109 mg/dL | [facility] | | | POC | | | [address] | [place] | [phone] | | [facility] | | [address] | | | - LABORATORY | | [...] [address] | [place] | [phone] | | [facility] | | [address] | | | - LABORATORY | | [...] [address] | [place] | [phone] | | [facility] | | [address] | | | - LABORATORY | | [...] + | [facility] | [address] | [place] | [phone] | | [facility] | | [address] | | | - LABORATORY | | [...] [address] | [place] | [phone] | | [facility] | | [address] | | | - LABORATORY | | [...] [address] | [place] | [phone] | | [facility] | | [address] | | | - LABORATORY | | | | + + + + + Phosphorus (11/02/2017 7:41 AM PST) + +---------+ + + + | Component | Value | Ref Range | Performed | Pathologist | | | | | At | Signature | + +---------+ + + + | Phosphorus | 4.8 (H) | 2.5 - 4.6 mg/dL | [facility] | | | | | | ST. [...] [address] | [place] | [phone] | | [facility] | | [address] | | | - LABORATORY | | [...] + | [facility] | [address] | [place] | [phone] | | [facility] | | [address] | | | - LABORATORY | | [...] mL/min/1.73m2 | [facility] | | | TRINIDADIAN | RATE,ESTIMATED | | MEDICAL | | | | mL/min/1.84n6Rmfa than | | CENTER - | | [...] + | [facility] [facility] | [address] | [place], [place] | [phone] | | [facility] | | [address] | | | - LABORATORY | | [...] [address] | [place] | [phone] | | [facility] | | [address] | | | - LABORATORY | | [...] - 1.030 | [facility] | | | [place] | | | [facility] | | [...] [address] | [place] | [phone] | | [facility] | | [address] | | | - LABORATORY | | [...] | | | | | | [employer] | | | | | [...] | Performing | Address | City/State[facility] | Phone Number | | Organization | | | | + + + + + | [facility] | [address] | [place] | [phone] | | [facility] | | [address] | | | - LABORATORY | | [...] [address] | [place] | [phone] | | [facility] | | [address] | | | - LABORATORY | | [...] [address] | [place] | [phone] | | [facility] | | [address] | | | - LABORATORY | | [...] [address] | [place] | [phone] | | [facility] | | [address] | | | - LABORATORY | | [...] | [facility] | [address] | [place] | [phone] | | [facility] | | [address] | | | - LABORATORY | | [...] ST. | [address] | [place] | [phone] | | [facility] | | [address] | | | - LABORATORY | | [...] + | [facility] | [address] | [place] | [phone] | | [facility] | | [address] | | | - LABORATORY | | [...] [address] | [place] | [phone] | | [facility] | | [address] | | | - LABORATORY | | [...] | | | | | | [employer] | | | | | [...] [address] | [place] | [phone] | | [facility] | | [address] | | | - LABORATORY | | [...] At | + + + | | [facility] | | | [facility] | | | [facility] | | | - LABORATORY [...] [address] | [place] | [phone] | | [facility] | | [address] | | | - LABORATORY | | [...] [address] | [place] | [phone] | | [facility] | | [address] | | | - LABORATORY | | [...] mL/min/1.73m2 | [facility] | | | TRINIDADIAN | RATE,ESTIMATED | | MEDICAL | | | | mL/min/1.49m4Cjps than | | CENTER - | | [...] [address] | [place] | [phone] | | [facility] | | [address] | | | - LABORATORY | | [...] [address] | [place] | [phone] | | [facility] | | [address] | | | - LABORATORY | | [...] [address] | [place] | [phone] | | [facility] | | [address] | | | - LABORATORY | | [...] [address] | [place] | [phone] | | [facility] | | [address] | | | - LABORATORY | | [...] for comparison only - no result from [facility]. | [facility] | + + + [...] for comparison only - no result from [facility]. | [facility] | + + + [...] for comparison only - no result from [facility]. 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 If | | | [...] | | | | | | use [place] 10/325 if ordered. If | | | [...] | | | | | | | 6503-7805 Use NIGHT DOSE for | | | | | | | doses scheduled: HS, 3AM, | | | | | | | Nighttime 6064-0960, | | | | | | + [...] scheduled: AC, | | | NPO, Daytime 7624-6562 Use NIGHT | | | DOSE for doses scheduled: | | | HS, 3AM, Nighttime 8841-5816, | | + +---+ | | | [...] | | | DAILY, First dose on [facility] 11/04/17 | | AM PST | [...]
--- OUTSIDE RECORDS SUMMARY | ~2019-09-08 | XMS | Encounter Summary ---
Demographics + + + | Address | [address] | | | [place] [address] | + + + | Home Phone [...] Author | [facility] | | | and [place] | + + + | Organization | [facility] | | | and [place] | + + + | Address | Unknown | + + + | Phone | Unavailable | + + + Support + + + + + | Name | Relationship | Address | Phone | + + + + + | India Tilley | ECON | [address] | | | | | [place], [place] | | | | | [address] | | + + + + + | Yina La | ECON | Unknown | | + + + + + | Yina Peterson | ECON | Unknown | | + + + + + | Leatha Casillas | ECON | Unknown | | + + + + + Care Team Providers + +------+ + | Care Inseam Trimmer Name | Role | Phone | + [...] | Surgery | kidney | DO [address] | [address] | | | | | disease, | Sweta, Jorden | [address] | | | | | stage V | [address] | [place], | | | | | ([facility]) | [place] | [place] [address] | | | | | | [address] | Phone: | | | | | | Phone: | [phone] | | | | | | [phone] | Fax: | | | | | | Fax: | [phone] | | | | | | [phone] | | +--------+ + + + + [...] disease, stage V | | | | [place], [place] | [address] [facility] | (HCC) (Primary Dx) | | | | [address] | [place] [address] | | | | | [phone] | [phone] | | | | | | | [...] Same Day Surgery (corner of [address]) at 12:00pm. Your surgery is called AV [...] successful and comfortable surgery. Sign up for Im[employer] if you want easy access to your medical information online. You can: Review your medications, immunizations, allergies and medical history. View details of your past and upcoming appointments. Sign up for Imag[employer] if you want easy access to your medical information online. Only you, your doctor and your health care team are permitted to view the information sent through [employer]. Through Imag[employer] you can: ? Review your medications, immunizations, [...] different ways you can sign up for Imag[employer]: ? The first way is to get online at: [email or web address] and sign up directly throug h the website prior to your appointment with us. You can call [phone] ([phone]) if you have any questions or need assistance. ? The second way is through the Imagry lyudmila which can be accessed with any smart phone. Ju st go to your lyudmila store and look up [employer]. ? The third way is to do [...] ? Francisca Womack PA-C Who is your Merchant Mariner/Kidney Specialist ? Dr. Muñoz When was the [...] dialysis on Wednesday, Wednesday and Fridays in [place]. She states she has had breast cancer, [...] : [facility] Allergies Allergen Reactions Lisinopril Pt [...] REPORT: PATIENT NAME : Estefani Tilley EQUIPMENT: [employer] with 10-5 mHertz probe. INDICATIONS: Dialysis access [...]
--- OUTSIDE RECORDS SUMMARY | ~2019-09-08 | XMS | Encounter Summary ---
Demographics + + + | Address | [address] | | | [place] [address] | + + + | Home Phone [...] | Author | [facility] | | | and [place]it[place] | + + + | Organization | [facility] | | | and [place] | + + + | Address | Unknown | + + + | Phone | Unavailable | + + + Support + + + + + | Name | Relationship | Address | Phone | + + + + + | India Tilley | ECON | [address] | | | | | [place], [place] | | | | | [address] | | + + + + + | Yina La | ECON | Unknown | | + + + + + | Yina Peterson | ECON | Unknown | | + + + + + | Leatha Casillas | ECON | Unknown | | + + + + + Care Team Providers + +------+ + | Care Instrument Lens Grinder Apprentice Name | Role | Phone | [...] Refill | | | | [address] | [place] | | | | | [place] | [address] | | | | | [address] | | | | | | [phone] | | | +--------+--------+ + + + [...]
--- OUTSIDE RECORDS SUMMARY | ~2019-09-08 | XMS | Encounter Summary ---
Demographics + + + | Address | [address] | | | [place] [address] | + + + | Home Phone [...] Author | [facility] | | | and [place] | + + + | Organization | [facility] | | | and [place] | + + + | Address | Unknown | + + + | Phone | Unavailable | + + + Support + + + + + | Name | Relationship | Address | Phone | + + + + + | India Tilley | ECON | [address] | | | | | [place], [place] | | | | | [address] | | + + + + + | Yina La | ECON | Unknown | | + + + + + | Yina Peterson | ECON | Unknown | | + + + + + | Leatha Casillas | ECON | Unknown | | + + + + + Care Team Providers + +------+ + | Care Real Estate Financial Analyst Name | Role | Phone | [...] | | | | | | | ([facility]) | | | | | | | Complication | | | | | | | s, dialysis, | | | | | | | catheter, | | | | | | | mechanical, | | | | | | | initial | | | | | | | encounter | | | | | | | ([facility]) | | | | | [...] + + | 02/04/ | Emergency | [facility] | [place], | Complications, | | 2018 - | | MED CTR SURGICAL | Venkatesh Esteban MD [address] | dialysis, catheter, | | | | [address] [place] | [address] [place] | mechanical, initial | | 02/05/ | | [place] [address] | [place] [address] | encounter ([facility]) | | 2018 | | [phone] | [phone] | (Primary Dx); End | | | | | | stage renal disease | | | | | Heather Navarro, | ([facility]) | | | | | [address] | | | | | | [place], [place] | | | | | | [id number] | | | | | | | [...] Office Phone Number to Contact Dr Navarro: [phone] Navarro's Office to schedule a follow up visit as needed - you will follow up with Dr Stephenson and at the dialysis center. Our office is located in the [facility] next door to Urgent Care. [...] Wednesday 9:00-2:00PM. Call the General Surgery Office [phone] for the following: Persistent vomiting Diarrhea lasting [...] as possible. Limit sports and strenuous activities [id number]. Shower as usual. Gently wash around your [...] ST. | [address] | [place], [place] | [phone] | | [facility] | | [address] | | | - LABORATORY | | [...] ST. | [address] | [place], [place] | [phone] | | [facility] | | [address] | | | - LABORATORY | | [...] 3.57 (H) | 0.60 - 1.30 | [facility] | | | | | mg/dL | [...] mL/min/1.73m2 | [facility] | | | LUXEMBOURGER | RATE,ESTIMATED | | MEDICAL | | | | mL/min/1.29s3Yngy than | | CENTER - | | [...] [address] | [place] | [phone] | | [facility] | | [address] | | | - LABORATORY | | [...] [address] | [place] | [phone] | | [facility] | | [address] | | | - LABORATORY | | | | + + + + + documented in this encounter Visit Diagnoses + + | Diagnosis | + + | Complications, dialysis, catheter, mechanical, initial encounter ([facility]) - Primary | + + | End stage renal disease ([facility]) End stage renal disease | [...] agent. | | | Ondansetron IV is consumer insight analyst | | | out. If patient cannot [...]
--- OUTSIDE RECORDS SUMMARY | ~2019-09-08 | XMS | Encounter Summary ---
Demographics + + + | Address | [address] | | | [place] [address] | + + + | Home Phone [...] Author | [facility] | | | and [place]it[place] | + + + | Organization | [facility] | | | and [place] | + + + | Address | Unknown | + + + | Phone | Unavailable | + + + Support + + + + + | Name | Relationship | Address | Phone | + + + + + | India Tilley | ECON | [address] | | | | | [place], [place] | | | | | [address] | | + + + + + | Yina La | ECON | Unknown | | + + + + + | Yina Peterson | ECON | Unknown | | + + + + + | Leatha Casillas | ECON | Unknown | | + + + + + Care Team Providers + +------+ + | Care Charger Operator Helper Name | Role | Phone | + +------+ + PCP | Unavailable | + +------+ + Encounter Details +--------+ + + + + | Date | Type | Department | Care Team | Description | +--------+ + + + + | 06/23/ | Hospital | [facility] | [place], | | | 2006 - | Encounter | MED CTR CANCER | Venkatesh Forte MD [address] | | | | | [place] [address] | [facility] | | | 07/13/ | | [place] | [place] [address] | | | 2006 | | [address] | [phone] | | | | | [phone] | | | +--------+ + + + [...]
--- OUTSIDE RECORDS SUMMARY | ~2019-09-08 | XMS | Encounter Summary ---
Demographics + + + | Address | [address] | | | [place] [address] | + + + | Home Phone [...] | Author | [facility] | | | and [place] | + + + | Organization | [facility] | | | and [place] | + + + | Address | Unknown | + + + | Phone | Unavailable | + + + Support + + + + + | Name | Relationship | Address | Phone | + + + + + | India Tilley | ECON | [address] | | | | | [place], [place] | | | | | [address] | | + + + + + | Yina La | ECON | Unknown | | + + + + + | Yina Peterson | ECON | Unknown | | + + + + + | Leatha Casillas | ECON | Unknown | | + + + + + Care Team Providers + +------+ + | Care Inside Contractor Sales Name | Role | Phone | + +------+ + PCP | Unavailable | + +------+ + Encounter Details +--------+ + + + + | Date | Type | Department | Care Team | Description | +--------+ + + + + | 12/19/ | Hospital | [facility] | Patricia, | | | 2007 - | Encounter | [facility] | Venkatesh Forte MD [address] | | | | [place] [address] | [facility] | | | 01/10/ | | [place] | [place] [address] | | | 2007 | | [address] | [phone] | | | | | [phone] | | | +--------+ + + + [...]
--- OUTSIDE RECORDS SUMMARY | ~2019-09-08 | XMS | Encounter Summary ---
Demographics + + + | Address | [address] | | | [place] [address] | + + + | Home Phone [...] Author | [facility] | | | and [place] | + + + | Organization | [facility] | | | and [place] | + + + | Address | Unknown | + + + | Phone | Unavailable | + + + Support + + + + + | Name | Relationship | Address | Phone | + + + + + | India Tilley | ECON | [address] | | | | | [place], [place] | | | | | [address] | | + + + + + | Yina La | ECON | Unknown | | + + + + + | Yina Peterson | ECON | Unknown | | + + + + + | Leatha Casillas | ECON | Unknown | | + + + + + Care Team Providers + +------+ + | Care Diver'S Tender Name | Role | Phone | [...] NEPHROLOGY [address] | M, DO [address] | | | | | [address] | [place] | | | | | [place], [place] | [place] | | | | | [address] | [address] | | | | | [phone] | | | +--------+ + + + [...]
--- OUTSIDE RECORDS SUMMARY | ~2019-09-08 | XMS | Encounter Summary ---
Demographics + + + | Address | [address] | | | [place] [address] | + + + | Home Phone [...] + | Author | [facility] | | | and [place] | + + + | Organization | [facility] | | | and [place] | + + + | Address | Unknown | + + + | Phone | Unavailable | + + + Support + + + + + | Name | Relationship | Address | Phone | + + + + + | India Tilley | ECON | [address] | | | | | [place], [place] | | | | | [address] | | + + + + + | Yina La | ECON | Unknown | | + + + + + | Yina Peterson | ECON | Unknown | | + + + + + | Leatha Casillas | ECON | Unknown | | + + + + + Care Team Providers + +------+ + | Care Rn Diabetes Name | Role | Phone | + +------+ + | Renato Pierson RUBBER BOOTS AND SHOES REPAIRER | PCP | | + +------+ + [...] | Infection | Nick Miller | [address]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 | [place], | [place], | | | | | 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 | [place] [address] | | | | | al disc | [address] | Phone: | | | | | (pyogenic), | [place], [place] | [phone] | | | | | thoracic | [address] | Fax: | | | | | region (HCC) | Phone: | [phone] | | | | | | [phone] | | | | | | 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: | | | | | | s of | [phone] | | | | | | thoracic | | | | | | | vertebra | | | | | | | ([facility]) | | | | | [...] + | 07/13/ | Hospital | [facility] | Fabiana Miller, | Canceled (OTHER) | | 2019 | Encounter | CENTER IR INTRA OP | Nick Apodaca MD | | | | | [address] | [address] | | | | | [place], [place] | [place] [address] | | | | | [address] | [phone] | | | | | [phone] | | | | | | | Wm Monaco | | | | | | MD [address] | | | | | | [address] | | | | | | [place] [address] | | | | | | [phone] | | | | | | | [...]
--- OUTSIDE RECORDS SUMMARY | ~2019-09-08 | XMS | Encounter Summary ---
Demographics + + + | Address | [address] | | | [place] [address] | + + + | Home Phone [...] | Author | [facility] | | | and [place] | + + + | Organization | [facility] | | | and [place] | + + + | Address | Unknown | + + + | Phone | Unavailable | + + + Support + + + + + | Name | Relationship | Address | Phone | + + + + + | India Tilley | ECON | [address] | | | | | [place], [place] | | | | | [address] | | + + + + + | Yina La | ECON | Unknown | | + + + + + | Yina Peterson | ECON | Unknown | | + + + + + | Leatha Casillas | ECON | Unknown | | + + + + + Care Team Providers + +------+ + | Care Electroplating Worker Name | Role | Phone | + +------+ + PCP | Unavailable | + +------+ + Reason for Visit + + + | Reason | Comments | + + + | Referral | [facility] | + + + Encounter Details +--------+ + + + + | Date | Type | Department | Care Team | Description | +--------+ + + + + | 05/26/ | Documentati | [facility] | Carlos Jansen, | Referral ([facility] | | 2019 | on | INFECTIOUS DISEASES | MD [address] | [facility] | | | | [address] | [place] [address] | [place]) | | | | [place] | [phone] | | | | | [address] | | | | | | [phone] | | | +--------+ + + + [...] AM PDTReferral was received 05/18 from [facility] requesting to change ID docs from Dr Min to Dr Jansen per Dr Muñoz's reque st for patient's osteomyelitis. Patient saw Dr Jansen [facility] and upon d/c she was moved to [...] home. I faxed back his note to [phone]. I did not enter a referral to avoid confusion with anna magaña current referral for Pako. Will discard additional records in 30 days. documented in this encou nter Plan of Treatment Not on filedocumented as of this encounter Visit Diagnoses Not on filedocumented in this encounter"
--- OUTSIDE RECORDS SUMMARY | ~2019-09-08 | XMS | Encounter Summary ---
Demographics + + + | Address | [address] | | | [place] [address] | + + + | Home Phone [...] Author | [facility] | | | and [place] | + + + | Organization | [facility] | | | and [place] | + + + | Address | Unknown | + + + | Phone | Unavailable | + + + Support + + + + + | Name | Relationship | Address | Phone | + + + + + | India Tilley | ECON | [address] | | | | | [place], [place] | | | | | [address] | | + + + + + | Yina La | ECON | Unknown | | + + + + + | Yina Peterson | ECON | Unknown | | + + + + + | Leatha Casillas | ECON | Unknown | | + + + + + Care Team Providers + +------+ + | Care Slubber Frame Changer Name | Role | Phone | [...] | Surgery | kidney | DO [address] | [address] | | | | | disease, | [place], [place] | [address] | | | | | stage V | [address] | [place], | | | | | ([facility]) | [place] | [place] [address] | | | | | | [address] | Phone: | | | | | | Phone: | [phone] | | | | | | [phone] | Fax: | | | | | | Fax: | [phone] | | | | | | [phone] | | +--------+ + + + + + Encounter Details +--------+---------+ + + + | Date | Type | Department | Care Team | Description | +--------+---------+ + + + | 03/10/ | Office | [facility] | Santos Stephenson | Chronic kidney | | 2018 | Visit | SURGERY [address] | MD Kinga, FACS [address] | disease, stage V | | | | [place], [place] | [address] [facility] | (HCC) (Primary Dx); | | | | [address] | [facility] [place] [address] | Post-operative state | | | | [phone] | [phone] | | | | | | | [...] She has been going to dialysis in [place], [place] , states things are going well. [...] REPORT: PATIENT NAME : Estefani Tilley EQUIPMENT: [employer] with 10-5 mHertz probe. INDICATIONS: S/P Right [...] RIGHT IJ catheter. 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 I will be available [...]
--- OUTSIDE RECORDS SUMMARY | ~2019-09-08 | XMS | Encounter Summary ---
Demographics + + + | Address | [address] | | | [place] [address] | + + + | Home Phone [...] Author | [facility] | | | and [place] | + + + | Organization | [facility] | | | and [place] | + + + | Address | Unknown | + + + | Phone | Unavailable | + + + Support + + + + + | Name | Relationship | Address | Phone | + + + + + | India Tilley | ECON | [address] | | | | | [place], [place] | | | | | [address] | | + + + + + | Yina La | ECON | Unknown | | + + + + + | Yina Peterson | ECON | Unknown | | + + + + + | Leatha Casillas | ECON | Unknown | | + + + + + Care Team Providers + +------+ + | Care Hat Conditioner Name | Role | Phone | + [...] | | | | | [address] | [place], [place] | | | | | [place], [place] | [address] | | | | | [address] | | | | | | [phone] | | | +--------+ + + + [...] +----+---+ + + | | 1 | [place] | | | | 2 | 43-degrees [...] +----+---+ + + | | 1 | [place] [address] | | | | 3 | [...]
--- OUTSIDE RECORDS SUMMARY | ~2019-09-08 | XMS | Encounter Summary ---
Demographics + + + | Address | [address] | | | [place] [address] | + + + | Home Phone [...] + + + | Author | [facility] | | | and [place] | + + + | Organization | [facility] | | | and [place] | + + + | Address | Unknown | + + + | Phone | Unavailable | + + + Support + + + + + | Name | Relationship | Address | Phone | + + + + + | India Tilley | ECON | [address] | | | | | [place], [place] | | | | | [address] | | + + + + + | Yina La | ECON | Unknown | | + + + + + | Yina Peterson | ECON | Unknown | | + + + + + | Leatha Casillas | ECON | Unknown | | + + + + + Care Team Providers + +------+ + | Care Restaurant Assistant Manager Name | Role | Phone | + +------+ + PCP | Unavailable | + +------+ + Encounter Details +--------+ + + + + | Date | Type | Department | Care Team | Description | +--------+ + + + + | 11/18/ | Hospital | [facility] | Patricia, | | | 2007 - | Encounter | MED CTR CANCER | Venkatesh Forte MD [address] | | | | | [place] [address] | [facility] | | | 12/11/ | | [place] | [place] [address] | | | 2007 | | [address] | [phone] | | | | | [phone] | | | +--------+ + + + [...]
--- OUTSIDE RECORDS SUMMARY | ~2019-09-08 | XMS | Encounter Summary ---
Demographics + + + | Address | [address] | | | [place] [address] | + + + | Home Phone [...] | Author | [facility] | | | and [place] | + + + | Organization | [facility] | | | and [place] | + + + | Address | Unknown | + + + | Phone | Unavailable | + + + Support + + + + + | Name | Relationship | Address | Phone | + + + + + | India Tilley | ECON | [address] | | | | | [place], [place] | | | | | [address] | | + + + + + | Yina La | ECON | Unknown | | + + + + + | Yina Peterson | ECON | Unknown | | + + + + + | Leatha Casillas | ECON | Unknown | | + + + + + Care Team Providers + +------+ + | Care Yarn Preparation Supervisor Name | Role | Phone | + +------+ + PCP | Unavailable | + +------+ + Encounter Details +--------+ + + + + | Date | Type | Department | Care Team | Description | +--------+ + + + + | 07/23/ | Hospital | [facility] | Patricia, | | | 2006 - | Encounter | MED CTR CANCER | Venkatesh Forte MD [address] | | | | | [place] [address] | [place] [facility] | | | 08/12/ | | [place] | [place] [address] | | | 2006 | | [address] | [phone] | | | | | [phone] | | | +--------+ + + + [...]
--- OUTSIDE RECORDS SUMMARY | ~2019-09-08 | XMS | Encounter Summary ---
Demographics + + + | Address | [address] | | | [place] [address] | + + + | Home Phone [...] | [facility] | | | and [place] | + + + | Organization | [facility] | | | and [place] | + + + | Address | Unknown | + + + | Phone | Unavailable | + + + Support + + + + + | Name | Relationship | Address | Phone | + + + + + | India Tilley | ECON | [address] | | | | | [place], [place] | | | | | [address] | | + + + + + | Yina La | ECON | Unknown | | + + + + + | Yina Peterson | ECON | Unknown | | + + + + + | Leatha Casillas | ECON | Unknown | | + + + + + Care Team Providers + +------+ + | Care Seismometer Operator Name | Role | Phone | [...] NEPHROLOGY [address] | M, DO [address] | | | | | [address] | [place], [address] | | | | | [place], [place] | [place] | | | | | [address] | [address] | | | | | [phone] | | | +--------+ + + + [...]
--- OUTSIDE RECORDS SUMMARY | ~2019-09-08 | XMS | Encounter Summary ---
Demographics + + + | Address | [address] | | | [place] [address] | + + + | Home Phone [...] + + | Author | [facility] | | | and [place] | + + + | Organization | [facility] | | | and [place] | + + + | Address | Unknown | + + + | Phone | Unavailable | + + + Support + + + + + | Name | Relationship | Address | Phone | + + + + + | India Tilley | ECON | [address] | | | | | [place], [place] | | | | | [address] | | + + + + + | Yina La | ECON | Unknown | | + + + + + | Yina Peterson | ECON | Unknown | | + + + + + | Leatha Casillas | ECON | Unknown | | + + + + + Care Team Providers + +------+ + | Care Digital Camera Technician Name | Role | Phone | + +------+ + PCP | Unavailable | + +------+ + Encounter Details +--------+ + + + + | Date | Type | Department | Care Team | Description | +--------+ + + + + | 05/16/ | Hospital | [facility] | Patricia, | | | 2007 - | Encounter | MED CTR CANCER | Venkatesh Forte MD [address] | | | | | [place] [address] | [place] | | | 06/12/ | | [place], [place] | [place] [address] | | | 2007 | | [address] | [phone] | | | | | [phone] | | | +--------+ + + + [...]
--- OUTSIDE RECORDS SUMMARY | ~2019-09-08 | XMS | Encounter Summary ---
Demographics + + + | Address | [address] | | | [place] [address] | + + + | Home Phone [...] | Author | [facility] | | | and [place] | + + + | Organization | [facility] | | | and [place] | + + + | Address | Unknown | + + + | Phone | Unavailable | + + + Support + + + + + | Name | Relationship | Address | Phone | + + + + + | India Tilley | ECON | [address] | | | | | [place], [place] | | | | | [address] | | + + + + + | Y[place] La | ECON | Unknown | | + + + + + | Yina Peterson | ECON | Unknown | | + + + + + | Leatha Casillas | ECON | Unknown | | + + + + + Care Team Providers + +------+ + | Care Veterinary Milk Specialist Name | Role | Phone | + +------+ + PCP | Unavailable | + +------+ + Encounter Details +--------+ + + + + | Date | Type | Department | Care Team | Description | +--------+ + + + + | 04/16/ | Abstract | [facility] | Darlin Moseley W, | | | 2016 | | NEPHROLOGY [address] | [address] | | | | | [address] | [address] [facility] | | | | | [place] | [place] [address] | | | | | [address] | [phone] | | | | | [phone] | | | +--------+ + + + [...]
--- OUTSIDE RECORDS SUMMARY | ~2019-09-08 | XMS | Encounter Summary ---
Demographics + + + | Address | [address] | | | [place] [address] | + + + | Home Phone [...] + | Author | [facility] | | | and [place] | + + + | Organization | [facility] | | | and [place] | + + + | Address | Unknown | + + + | Phone | Unavailable | + + + Support + + + + + | Name | Relationship | Address | Phone | + + + + + | India Tilley | ECON | [address] | | | | | [place], [place] | | | | | [address] | | + + + + + | Yina La | ECON | Unknown | | + + + + + | Yina Peterson | ECON | Unknown | | + + + + + | Leatha Casillas | ECON | Unknown | | + + + + + Care Team Providers + +------+ + | Care Electronic Publishing Specialist Name | Role | Phone | [...] | (Primary Dx); | | | | [place], [place] | [place] [address] | Arthritis; Other | | | | [address] | [phone] | back pain; History | | | | [phone] | | of blood clots; | | [...]
--- OUTSIDE RECORDS SUMMARY | ~2019-09-08 | XMS | Encounter Summary ---
Demographics + + + | Address | [address] | | | [place] [address] | + + + | Home Phone [...] | Author | [facility] | | | and [place] | + + + | Organization | [facility] | | | and [place] | + + + | Address | Unknown | + + + | Phone | Unavailable | + + + Support + + + + + | Name | Relationship | Address | Phone | + + + + + | India Tilley | ECON | [address] | | | | | [place], [place] | | | | | [address] | | + + + + + | Yina La | ECON | Unknown | | + + + + + | Yina Peterson | ECON | Unknown | | + + + + + | Leatha Casillas | ECON | Unknown | | + + + + + Care Team Providers + +------+ + | Care Director Clinical Data Name | Role | Phone | + +------+ + PCP | Unavailable | + +------+ + Encounter Details +--------+ + + + + | Date | Type | Department | Care Team | Description | +--------+ + + + + | 09/09/ | Hospital | [facility] | | | | 2005 - | Encounter | MED CTR CANCER | | | | | | CENTER [facility] [address] | | | | 09/12/ | | [place] | | | | 2005 | | [address] | | | | | | [phone] | | | +--------+ + + + [...]
--- OUTSIDE RECORDS SUMMARY | ~2019-09-08 | XMS | Encounter Summary ---
Demographics + + + | Address | [address] | | | [place] [address] | + + + | Home Phone [...] | Author | [facility] | | | and [place] | + + + | Organization | [facility] | | | and [place] | + + + | Address | Unknown | + + + | Phone | Unavailable | + + + Support + + + + + | Name | Relationship | Address | Phone | + + + + + | India Tilley | ECON | [address] | | | | | [place], [place] | | | | | [address] | | + + + + + | Yina La | ECON | Unknown | | + + + + + | Yina Peterson | ECON | Unknown | | + + + + + | Leatha Casillas | ECON | Unknown | | + + + + + Care Team Providers + +------+ + | Care Tipple Worker Name | Role | Phone | [...] | | [address] | [place] | ([facility]) (Primary Dx) | | | | [place], [place] | [place], [place] | | | | | [address] | [address] | | | | | [phone] | | | +--------+ + + + [...] PSTLabs for [facility] nephrology [facility] signed by Celeste Butler RN at 10/07/2017 [...]
--- OUTSIDE RECORDS SUMMARY | ~2019-09-08 | XMS | Encounter Summary ---
Demographics + + + | Address | [address] | | | [place] [address] | + + + | Home Phone [...] Author | [facility] | | | and [place] | + + + | Organization | [facility] | | | and [place] | + + + | Address | Unknown | + + + | Phone | Unavailable | + + + Support + + + + + | Name | Relationship | Address | Phone | + + + + + | India Tilley | ECON | [address] | | | | | [place], [place] | | | | | [address] | | + + + + + | Yina La | ECON | Unknown | | + + + + + | Yina Peterson | ECON | Unknown | | + + + + + | Leatha Casillas | ECON | Unknown | | + + + + + Care Team Providers + +------+ + | Care Business Development Representative Name | Role | Phone | [...] + | 01/03/ | Telephone | [facility] | Santos Stephenson | Surgery Appointment | | 2018 | | SURGERY [address] | MD Kinga, FACS [address] | | | | | [place], [place] | [address] [facility] | | | | | [address] | [place] [address] | | | | | [phone] | [phone] | | | | | | | [...]
--- OUTSIDE RECORDS SUMMARY | ~2019-09-08 | XMS | Encounter Summary ---
Demographics + + + | Address | [address] | | | [place] [address] | + + + | Home Phone [...] | Author | [facility] | | | and [place] | + + + | Organization | [facility] | | | and [place] | + + + | Address | Unknown | + + + | Phone | Unavailable | + + + Support + + + + + | Name | Relationship | Address | Phone | + + + + + | India Tilley | ECON | [address] | | | | | [place], [place] | | | | | [address] | | + + + + + | Yina La | ECON | Unknown | | + + + + + | Yina Peterson | ECON | Unknown | | + + + + + | Leatha Casillas | ECON | Unknown | | + + + + + Care Team Providers + +------+ + | Care Gas Stove Servicer Helper Name | Role | Phone | [...] | | | | renal | PA-C [address] | [address] [place] [address] | | | | | disease | | [place] | | | | | ([facility]) | CONFEDERATED | [address] | | | | | Procedures | WAY | [place] | | | | | [place] OFFICE | [place], | [address] Phone: | | | | | OUTPATIENT | [place] [address] | [phone] | | | | | VISIT 25 | Phone: | Fax: | | | | | MINUTES | [phone] | [phone] | | | | | | Fax: | | | | | | | [phone] | | +--------+--------+ + + + + Encounter Details +--------+ + + + + | Date | Type | Department | Care Team | Description | +--------+ + + + + | 02/28/ | [facility]-Site | [facility] | Gopi Muñoz | End stage renal | | 2018 | Visit | NEPHROLOGY [address] | M, DO [address] | disease (HCC) | | | | [address] | [place], [address] | (Primary Dx) | | | | [place] | [place] | | | | | [address] | [address] | | | | | [phone] | | | +--------+ + + + [...] to HTN and diabetic glomerulosclerosis at the [facility]. She also has depression, long standing [...] Will recheck her in 2 weeks. : [place]. Santos Stephenson MD, [facility] documented in thi s encounter Plan of Treatment Not on filedocumented as of this encounter Visit Diagnoses + + | Diagnosis | + + | End stage renal disease (HCC) - Primary End stage renal disease | + + documented in this encounter"
--- OUTSIDE RECORDS SUMMARY | ~2019-09-08 | XMS | Encounter Summary ---
Demographics + + + | Address | [address] | | | [place] [address] | + + + | Home Phone [...] [facility] | | | and [place] | + + + | Organization | [facility] | | | and [place] | + + + | Address | Unknown | + + + | Phone | Unavailable | + + + Support + + + + + | Name | Relationship | Address | Phone | + + + + + | India Tilley | ECON | [address] | | | | | [place], [place] | | | | | [address] | | + + + + + | Yina La | ECON | Unknown | | + + + + + | Yina Peterson | ECON | Unknown | | + + + + + | Leatha Casillas | ECON | Unknown | | + + + + + Care Team Providers + +------+ + | Care Travel Clerk Name | Role | Phone | + +------+ + PCP | Unavailable | + +------+ + Encounter Details +--------+ + + + + | Date | Type | Department | Care Team | Description | +--------+ + + + + | 10/27/ | Abstract | [facility] | Gopi Muñoz | | | 2017 | | NEPHROLOGY [address] | M, DO [address] [place] | | | | | [address] [facility] | [place], [facility] 100 | | | | | [place], [place] | [place] | | | | | [address] | [address] | | | | | [phone] | | | +--------+ + + + [...]
--- OUTSIDE RECORDS SUMMARY | ~2019-09-08 | XMS | Encounter Summary ---
Demographics + + + | Address | [address] | | | [place] [address] | + + + | Home Phone [...] | Author | [facility] | | | and [place] | + + + | Organization | [facility] | | | and [place] | + + + | Address | Unknown | + + + | Phone | Unavailable | + + + Support + + + + + | Name | Relationship | Address | Phone | + + + + + | India Tilley | ECON | [address] | | | | | [place], [place] | | | | | [address] | | + + + + + | Yina La | ECON | Unknown | | + + + + + | Yina Peterson | ECON | Unknown | | + + + + + | Leatha Casillas | ECON | Unknown | | + + + + + Care Team Providers + +------+ + | Care Gold Prospector Name | Role | Phone | + +------+ + | Renato Pierson PLANNING FEEDER | PCP | | + +------+ + [...] | | | disease | [place] | [place], [place] | | | | | (HCC) | [place] | [address] [facility] | | | | | Procedures | [address] | [place], [place] | | | | | [place] ESRD | [place], | [address] Phone: | | | | | RELATED SVC | [place] | [phone] | | | | | MONTHLY | [address] | Fax: | | | | | 20&/> YR OLD | Phone: | [phone] | | | | | 4/> VISITS | [phone] | | | | | | | Fax: | | | | | | | [phone] | | + +--------+ + + + + Encounter Details +--------+ + + + + | Date | Type | Department | Care Team | Description | +--------+ + + + + | 07/10/ | Off-Site | [facility] | Gopi Muñoz | ESRD (end stage | | 2019 | Visit | NEPHROLOGY [address] | M, DO [address] | renal disease) on | | | | [address] | [place] | dialysis (HCC) | | | | [place] | [place] | (Primary Dx) | | | | [address] | [id number] | | | | | [phone] | | | +--------+ + + + [...]
--- OUTSIDE RECORDS SUMMARY | ~2019-09-08 | XMS | Encounter Summary ---
Demographics + + + | Address | [address] | | | [place] [address] | + + + | Home Phone [...] | Author | [facility] | | | and Kamaljitana | + + + | Organization | [facility] | | | and [place] | + + + | Address | Unknown | + + + | Phone | Unavailable | + + + Support + + + + + | Name | Relationship | Address | Phone | + + + + + | India Tilley | ECON | [address] | | | | | [place], [place] | | | | | [address] | | + + + + + | Yina La | ECON | Unknown | | + + + + + | Yina Peterson | ECON | Unknown | | + + + + + | Leatha Casillas | ECON | Unknown | | + + + + + Care Team Providers + +------+ + | Care Freight Checker Name | Role | Phone | [...] Line | | | | [address] [place] | [place] [address] | | | | | [address] | [phone] | | | | | [phone] | | | +--------+---------+ + + + [...] Up Appointments: ELI BALL [address] [facility] [address] [facility] [address] [place] [id number] [facility] [address] [facility] [phone] Discharge Disposition: Home with Home Health Consultants This Admission: ID, Nephrology Hospital Course: 73-year-old female with history of ESRD on hemodialysis, hypertension, type 2 diabetes, hyp othyroidism, chronic anemia, hyperlipidemia with a history of stroke transferred from [facility] for evaluation of T11-T12 lesion noted on [...] initially had planned to go to SNF ([facility] in [place], [place] - of which has accepted her and [...] dialysis days after dialysis Osteomyelitis/Discitis of T11, N29bjffhict -MRI spine 03/23/19: "mild paravertebral soft tissue [...] dialysis patient - has OP clinic in [place] already Macrocytic anemia likely secondary to-likely anemia [...] Value Units Date/Time Culture, Aerobic + Anaerobic [[id number]] Collected: 03/24/191513 Order Status: Completed Lab Status: Final result Updated: 03/29/19717 Specimen: Body Fluid from Vertebrae, Thoracic FINAL REPORT -- No Growth No anaerobes isolated Gram Stain Few Neutrophils No squamous epithelial cells seen No organisms seen Comment: Performed by [facility] [address] [place] [address] Gram Stain [[id number]] Collected: 03/24/19 151 Order Status: Canceled Lab Status: No result Updated: 03/24/19 151 Specimen: Body Fluid from Vertebrae, Thoracic Culture, AFB Smear [[id number]] Collected: 03/24/191513 Order Status: Completed Lab Status: Preliminary result Updated: 03/25/19 1054 Specimen: Body Fluid from Vertebrae, Thoracic AFB Smear Result No Acid Fast Bacilli Seen Comment: Performed by [facility] [address] [place] [address] Culture, Fungus, Smear [[id number]] Collected: 03/24/19 151 Order Status: Completed Lab Status: Preliminary result Updated: 03/25/19 1039 Specimen: Body Fluid from Vertebrae, Thoracic CALCOFLUOR No fungal elements seen Comment: Performed by [facility] [address] [place] [address] Culture, Blood [[id number]] Collected: 03/23/19 2333 Order Status: Completed Lab Status: Final result Updated: 03/28/19 2352 Specimen: Blood Culture No growth after 5 days incubation. Culture, Blood [[id number]] Collected: 03/23/19 2255 Order Status: Completed Lab Status: Final result Updated: 03/28/19 3459 Specimen: Blood Culture No growth after 5 [...] this chart may have been created with [employer] voice recognition software. Occasi onal wrong-word or [...] | | | | | | | ([facility]), Right hip | | | | [...] 03/31/2019 5:42 PM PDTPatient left with family, [facility] supplies and i nstructions received before discharge and RX's filled at outpt pharmacy. VSS, ambulating wit h SBA, A&O x4, accepting of discharge. Dialysis completed this AM. Pain controlled with q4 o xy, LD 1400. Home health will f/u tomorrow. AVS reviewed and sent with patient, verbalized u nderstanding. Merry Hess LITHOGRAPHIC PRESS OPERATOR APPRENTICE - 03/31/2019 11:05 AM PDTSOCIAL WORK PLAN: Home with [facility] NEXT STEPS: 1. Pt to follow up with [facility] 2. [facility] to follow up with pt at dc INTERVENTION: SW spoke with [facility], pt has a $2.50 out of pocket cost weekly, pt is agreeable to pay for this. Therefore pt will dc today with [facility]. ROBIN provided [facility] with hard script for IV abx. ROBIN faxed over HH order to [facility], ROBIN faxed over IV vanco script to [facility]. [facility] notified of pt's dc home. notified. [facility] to meet with pt later this afternoon for teach. ROBIN provided pt with 3 gas cards to assist with transportation. No further dc needs identified. SW received call from [facility] HD clinic that they cannot provide IV Vanco as Vanco h as not been consigned by [employer] that has privileges in [place]. IV Vanco will now be done b y [facility], [address] [place] faxed over hard script to Candie. They will have both IV Abx ready and will teach pt shortly. No further dc needs identified. CONTACTS: Yina La: sister India Tilley: sister [place] Transportation: [place] Medicaid Transportation fax: [phone] [facility]: [phone] fax: [phone] [facility] [phone] [facility]: [phone] [facility]: [phone] [facility] FAX: [phone] Camryn Michelle DO Brandon - 03/31/2019 10:12 AM PDT Patient: Estefani Tilley Date of : 1945 Admit Date: 03/24/2019 Date of Service: 03/31/2019 PCP: Francisca Womack PA-C Hospital Day: Hospital Day: 8 Hospital Course: 73-year-old female with history of ESRD on hemodialysis, hypertension, type 2 diabetes, hyp othyroidism, chronic anemia, hyperlipidemia with a history of stroke transferred from [facility] for evaluation of T11-T12 lesion noted on [...] initially had planned to go to SNF ([facility] in [place], [place] - of which has accepted her [...] dialysis patient - has OP clinic in [place] already Macrocytic anemia likely secondary to-likely anemia [...] hoping to arrange home IV antibiotics through [facility]. Awaiting to see if insurance will cover [...] - 99 mg/dL Final Comment: Performed by [facility] [address] [place] [address] 03/30/2019 21:14 200 (H) 65 - 99 mg/dL Final Comment: Performed by [facility] [address] [place] [address] 03/30/2019 17:46 111 (H) 65 - 99 mg/dL Final Comment: Performed by [facility] [address] [place] [address] 12/09/2018 18:05 113 (H) 70 - 109 [...] this chart may have been created with [employer] voice recognition software. Occasi onal wrong-word or sound-alike substitutions may have occurred due to the inherent mckeon itations of voice recognition software. Please read the chart carefully and recognize, using context, where these substitutions have occurred rgJesus mcdonald MD - 03/31/2019 8:26 AM PDT . Infectious Diseases Progress Note Pt. Name/Age/: Estefani Tilley 73 y.o. 1945 Med. Record Number: [id number] Date of admission: 03/24/2019 Patient admitted with [...] Electronically signed by: Jesus Whitney, 03/31/2019 8:26 [facility] Robb Phillips, PharmD - 03/31/2019 7:25 AM PDTFormatting of this note might be different from the [facility] nal. Pharmacy Progress Note [...] mg/dL (H)). Lab Results Component Value [facility] 03/31/2019 04:12 I/O last 3 completed shifts: In: 1810 [P.O.:1810] Out: 0 No intake/output data recorded. Micro/Cultures: BCx - NGTD, BiopsyCx - NGTD Per P&T-approved Vancomycin Protocol Electronically signed by: Robb Wheeler PharmD 03/31/2019 7:25 su, Randy Nunez MD - 03/30/2019 9:45 PM PDT [facility] INPATIENT ROUNDING NOTE Date of Service: 03/30/2019 Rounding Physician: Randy Corrigan MD Patient Name: Estefani Tilley : 1945 Medical Record: [id number] Hospital Summary: Estefani Tilley is a 73 y.o. female with a PMHx of ESRD, HTN, Dm type 2, hypothyroidism, HLd, CVA who is under the care of Dr Muñoz at [facility] who dialyzes MWF admitted with possible [...] Trace Corrigan MD, 03/30/2019, 21:45 etNan wilkes, LITHOGRAPHIC PRESS OPERATOR APPRENTICE - 03/30/2019 2:34 PM PDT SOCIAL WORK D/C PLAN:DC home with [facility] providing IV-ABX and [facility] providing picc care and lab draws vs [facility] NEXT STEPS: -SW will need to follow up with [facility] regarding providing IV-ABX to pt. -SW will need to follow up with [facility] regarding providing picc care and lab draws. -SW will need to follow up with [facility] regarding having pt receive vanco do se while at dialysis center if pt is to go home with IV-ABX -SW will need to follow up with [facility] if pt is unable to go home with IV-ABX rega ridng pt's DC -SW will need to fax SNF orders, scripts and PASRR to [facility] if pt is unable to go home -SW will need to provide gas cards to pt's family for transportation home. INTERVENTION:SW spoke with pt regarding acceptance to [facility]. Pt is now wanting to go home with IV-ABX. SW spoke with [facility]. They go out to [place], [place] and have openings for nursing care. Referral faxed to [facility]. Pt is amenable to using [facility] for IV-ABX. SW spoke with CANDIE liasion who will run pt's be nefits to see if she can DC home with IV-ABX. Pt states that [facility] can provide teach to her son to help administer IV-ABX. SW left message for [facility] to see if they can provide vanco dose to pt at [facility] on Wednesday, Wednesday and Wednesday if pt is able to go home. Pt states that she does dialysis on Wednesday, Wednesday and Wednesday from 12:00-4:00. SW received phone call from [facility]. They have accepted pt for admission if [...] if pt is going to go to [facility]. ASSESSMENT/CHART REVIEW:73 yr old femalewith a history of ESRD on hemodialysis, hypertens ion, type 2 diabetes, hypothyroidism,chronic anemia,hyperlipidemia, hx of stroke [facility] lesion noted on MRI concerning fo r osteomyelitis. ROBIN met with pt's sister, Yina, and her cousin, Keri, who were waiting in pt's room while s he was in dialysis. ROBIN will need to follow up with pt re: d/c planning. Pt's sister and cousin related that pt mostly lives at Yina's house outside [place], [place], but does not like to be tied down because she enjoys attending [employer] [employer] festivals and many events. She does at tend dialysis weekly. Pt has a vehicle and is very independent. D/C TRANSPORT:Pt can be transported home or to [facility] via family in a private car. They will need gas cards to help pay for transportation. BARRIERS TO D/C:none CONTACTS: Yina La: sister India Tilley: sister [place] Transportation: [place] Transportation fax: [phone] [facility]: [phone] fax: [phone] [place] [phone] [facility]: [phone] [facility]: [phone] [facility] FAX: [phone] Nan Cheney MSW - 03/30/2019 12:57 PM PDTSOCIAL WORK D/C PLAN:SNF: [facility] NEXT STEPS:Await bed availability INTERVENTION: ROBIN called and left message for Roneugene at [facility] regarding if they are willing to accept pt and to discuss transportation to and from dialysis. SW also called and left message for [place] Medicaid transportation regarding if they can transp ort pt to and from dialysis upon DC. Pt states that she goes to [facility] dialys is in [place], [place] on Wed, Wed, and Fridays from 12:00-4:00 pm. SW left message with [facility] dialysis regarding if there was any way that they may also be able to help with transportation to and from dialysis while pt is in rehab and to ensure that pt still has her chair time scheduled. [facility] is only open M on, Wednesday and Wednesday. ASSESSMENT/CHART REVIEW:73 yr old femalewith a history of ESRD on hemodialysis, hypertens ion, type 2 diabetes, hypothyroidism,chronic anemia,hyperlipidemia, hx of stroke [facility] noted on MRI concerning fo r osteomyelitis. ROBIN met with pt's sister, Yina, and her cousin, Keri, who were waiting in pt's room while s he was in dialysis. ROBIN will need to follow up with pt re: d/c planning. Pt's sister and cousin related that pt mostly lives at Yina's house outside [place], [place], but does not like to be tied down because she enjoys attending [place] [employer] festivals and many events. She does at tend dialysis weekly. Pt has a vehicle and is very independent. D/C TRANSPORT:tbd BARRIERS TO D/C:none CONTACTS: Yina La: sister India Tilley: sister [place] Transportation: [place] Transportation fax: [phone] [facility]: [phone] fax: [phone] [place] [phone] [facility]: [phone] signed by JENNIFER Xavier at 03/30 1:09 [...] history of stroke transferred from [facility] for evaluation of T11-T12 lesion [...] awaiting to hear from [facility], in [place] regarding possible acceptance. She is improved overall and medic ally ready for discharge. She is a chronic dialysis patient, Nephrology is following for on going dialysis needs. She will need three times weekly dialysis while at [facility] as well. SW t o help [...] dialysis patient - has OP clinic in [place] already ---> will need SW to help [...] SNF - awaiting to hear back from [facility], in [place], [place] regarding possible acceptance there. Medically ready [...] Single Lumen 03/24/19 2143 Left Lateral Forearm fjqk-zqa-qgkkec dnaiel ter system 20 gauge;1 / in length [...] - 99 mg/dL Final Comment: Performed by [facility] [address] [place] [address] 03/29/2019 21:09 157 (H) 65 - 99 mg/dL Final Comment: Performed by [facility] [address] [place] [address] 03/29/2019 18:50 91 65 - 99 mg/dL Final Comment: Performed by [facility] [address] [place] [address] 12/09/2018 18:05 113 (H) 70 - 109 [...] this chart may have been created with [employer] voice recognition software. Occasi onal wrong-word or sound-alike substitutions may have occurred due to the inherent mckeon itations of voice recognition software. Please read the chart carefully and recognize, using context, where these substitutions have occurred rgJesus mcdonald MD - 03/30/2019 7:15 AM PDT . Infectious Diseases Progress Note Pt. Name/Age/: Estefani Tilley 73 y.o. 1945 Med. Record Number: [id number] Date of admission: 03/24/2019 Patient admitted with [...] Electronically signed by: Jesus Whitney, 03/30/2019 7:15 [facility] Mary Wade RN - 03/30/2019 6:16 [...] Bowel Movement: Stool Occurrence: 1(pt reported) (03/27/19 627) Active Infusions: dextrose 10% Skin: Skin Integrity: [...] has depression wishful of Monitoring Requirements [facility] Suicide Policy [facility] Suicide Risk/Telesitter Screening Utilizing this rating [...] POCGLU 112 (H) 12/08/2018 0650 Merry Hess LITHOGRAPHIC PRESS OPERATOR APPRENTICE - 03/29/2019 4:18 PM PDTSOCIAL WORK D/C PLAN:SNF: [facility] NEXT STEPS:Await bed availability INTERVENTION: SW called and spoke with admissions person at [facility], they are still discussing pt's case. [...] anemia,hyperlipidemia, hx of stroke [facility] lesion noted on MRI concerning fo r osteomyelitis. SW met with pt's sister, Yina, and her cousin, Keri, who were waiting in pt's room while s he was in dialysis. SW will need to follow up with pt re: d/c planning. Pt's sister and cousin related that pt mostly lives at Yina's house outside [place], [place], but does not like to be tied down because she enjoys attending [place] [employer] festivals and many events. She does at tend dialysis weekly. Pt has a vehicle and is very independent. D/C TRANSPORT:tbd BARRIERS TO D/C:none CONTACTS: Yina La: sister India Tilley: sister [place] Medicaid Transportation: [facility]: [phone] fax: [phone] [place] [phone] signed by JENNIFER Contreras at 03/29/2019 4:20 PM PDTHsu, Randy Nunez MD - 03/29/2019 12:32 PM PDT [facility] INPATIENT ROUNDING NOTE Date of Service: 03/29/2019 Rounding Physician: Randy Corrigan MD Patient Name: Estefani Tilley : 1945 Medical Record: [id number] Hospital Summary: Estefani Tilley is a 73 y.o. female with a PMHx of ESRD, HTN, Dm type 2, hypothyroidism, HLd, CVA who is under the care of Dr Muñoz at [facility] who dialyzes MWF admitted with possible [...] with a history of stroke transferred from [facility] for evaluation of T11-T12 lesion noted on [...] dialysis patient - has OP clinic in [place] already ---> will need SW to help [...] SNF - awaiting to hear back from [facility], in [place], [place] regarding possible acceptance there. Could possibly [...] Single Lumen 03/24/19 2143 Left Lateral Forearm vvkf-epm-dcheok daniel ter system 20 gauge;1 1/4 in [...] - 99 mg/dL Final Comment: Performed by [facility] [address] [facility] [place] [address] 03/28/2019 21:06 144 (H) 65 - 99 mg/dL Final Comment: Performed by [address] [facility] [place] [address] 03/28/2019 11:22 119 (H) 65 - 99 mg/dL Final Comment: Performed by [facility] [place] [address] [place] [address] 12/09/2018 18:05 113 (H) 70 - 109 [...] this chart may have been created with [employer] voice recognition software. Occasi onal wrong-word or [...] Tilley 73 y.o. 1945 Med. Record Number: [id number] Date of admission: 03/24/2019 Patient admitted with [...] Electronically signed by: Jesus Whitney, 03/29/2019 7:35 [facility] zech, Carolina Restrepo RN - 03/28/2019 7:08 PM [id number] - Report called to [facility] RN. Pt's belongings . I pad and I phone w/ chargers as well as pt's purse, and shoes, and shirt and pants all sent with her to [address] [place] [address]. Pt had been sitting up eating dinner. [...] for time spent with her. Noti fied [address] [place] [address] RN of pt's recent loss. Transferred at [...] with a history of stroke transferred from [facility] for evaluation of T11-T12 lesion noted on [...] Single Lumen 03/24/19 2143 Left Lateral Forearm yrxr-nwd-bcbyxu daniel ter system 20 gauge;1 1/4 in [...] - 99 mg/dL Final Comment: Performed by [facility] [address] [place] [address] 03/28/2019 07:09 75 65 - 99 mg/dL Final Comment: Performed by [facility] [address] [place] [address] 03/27/2019 20:38 109 (H) 65 - 99 mg/dL Final Comment: Performed by [facility] [address] [place] [address] 12/09/2018 18:05 113 (H) 70 - 109 [...] this chart may have been created with [employer] voice recognition software. Occasi onal wrong-word or sound-alike substitutions may have occurred due to the inherent mckeon itations of voice recognition software. Please read the chart carefully and recognize, using context, where these substitutions have occurred Cordell Mcgarry, [facility] - 03/28/2019 2:57 PM PDTSOCIAL WORK D/C PLAN: SNF: [facility] NEXT STEPS: Await bed availability INTERVENTION: On-going dc planning. Rec'd update from [facility]. They confirm they have r ec'd clinical notes and are currently reviewing. SW will follow. ASSESSMENT/CHART REVIEW:73 yr old femalewith a history of ESRD on hemodialysis, hypertens ion, type 2 diabetes, hypothyroidism,chronic anemia,hyperlipidemia, hx of stroke [facility] lesion noted on MRI concerning fo r osteomyelitis. SW met with pt's sister, Yina, and her cousin, Keri, who were waiting in pt's room while s he was in dialysis. SW will need to follow up with pt re: d/c planning. Pt's sister and co usin related that pt mostly lives at Yina's house outside [facility], [place], but does not like to be tied down because she enjoys attending [place] [employer] festivals and many events. She does atten d dialysis weekly. Pt has a vehicle and is very independent. D/C TRANSPORT: tbd BARRIERS TO D/C: none CONTACTS: Yina La: sister India Tilley: sister [facility]: [phone] fax: [phone] [place] [phone] illum, Mario Alberto morales MD - 03/28/2019 7:34 AM PDTFormatting of this note might be different from the [facility] Infectious Diseases Progress Note Pt. Name/Age/: Estefani Tilley 73 y.o. 1945 Med. Record Number: [id number] Date of admission: 03/24/2019 Patient admitted with [...] Electronically signed by: Carlos Jansen, 03/28/2019 7:34 [facility] Katey Solis MD - 03/27/2019 8:58 PM PDT Patient: Estefani Tilley Date of : 1945 Admit Date: 03/24/2019 Date of Service: 03/27/2019 PCP: Francisca Womack PA-C Hospital Day: Hospital Day: 4 Hospital Course: 73-year-old female with history of ESRD on hemodialysis, hypertension, type 2 diabetes, hyp othyroidism, chronic anemia, hyperlipidemia with a history of stroke transferred from [facility] for evaluation of T11-T12 lesion noted on MRI concerning for osteomyeliti s. Infectious disease consulted. Status post aspiration from her thoracic spine, Gram stain negative, cultures pending. Rosemary ent started on empiric vancomycin and cefepime. Will need 6 weeks of IV antibiotics. Discussed with nephrology, recommend placement of Tillman catheter instead of PICC line for fpc IV antibiotics. Nephrology following for maintenance hemodialysis. SW following for SNF. Assessment and Plan: Assessment of active problems addressed today: Osteomyelitis/discitis of T11, T12 vertebra Afebrile, improved WBC count, improved CRP Status post aspiration from her thoracic spine, Gram stain negative, cultures pending- [facility] Infectious disease help appreciated Continue [...] Single Lumen 03/24/19 2143 Left Lateral Forearm xzqj-dep-nbydrx daniel ter system 20 gauge;1 09/16 in [...] - 99 mg/dL Final Comment: Performed by [facility] [address] [place] [address] 03/27/2019 13:58 82 65 - 99 mg/dL Final Comment: Performed by [facility] [address] [place] [address] 03/27/2019 06:39 83 65 - 99 mg/dL Final Comment: Performed by [facility] [address] [place] [address] 12/09/2018 18:05 113 (H) 70 - 109 [...] this chart may have been created with [employer] voice recognition software. Occasi onal wrong-word or sound-alike substitutions may have occurred due to the inherent mckeon itations of voice recognition software. Please read the chart carefully and recognize, using context, where these substitutions have occurred Darlin Mcgarry, [facility] - 03/27/2019 3:17 PM PDTSOCIAL WORK D/C PLAN: SNF: [facility] NEXT STEPS: Await bed availability INTERVENTION: Rec'd call from Emili at [facility]. She states the contracted f acility near pt's home is [facility]. Spoke with pt and with sister India. Referral and (-) Pasrr sent to [facility]. Copy of Pasrr placed in light chart with request to file into jos rds. SW will follow. ASSESSMENT/CHART REVIEW:73 yr old femalewith a history of ESRD on hemodialysis, hypertens ion, type 2 diabetes, hypothyroidism,chronic anemia,hyperlipidemia, hx of stroke transfe rred from [facility] of T11-T12 lesion noted on MRI [...] be tied down because she enjoys attending [place] [employer] festivals and many events. She does atten d dialysis weekly. Pt has a vehicle and is very independent. D/C TRANSPORT: tbd BARRIERS TO D/C: none CONTACTS: Yina La: sister India Tilley: sister [facility]: [phone] fax: [phone] [place] [phone] Gregg Mcgarry AIRPORT BAGGAGE SCREENER - 03/27/2019 2:17 PM PDTFormatting of this note might be different from jerald more. SOCIAL WORK D/C PLAN: SNF NEXT STEPS: SW to follow up with pt regarding SNF preference INTERVENTION: On-going dc planning, chart reviewed and met with pt. 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 Provided list of [...] be tied down because she enjoys attending [place] [employer] festivals and many events. She does atten d dialysis weekly. Pt has a vehicle and is very independent. ASSESSMENT/CHART REVIEW:73 yr old femalewith a history of ESRD on hemodialysis, hypertens ion, type 2 diabetes, hypothyroidism,chronic anemia,hyperlipidemia, hx of stroke [facility]-T12 lesion noted on MRI concerning fo r osteomyelitis. D/C TRANSPORT: tbd BARRIERS TO D/C: none CONTACTS: Yina La Sister [phone] India Tilley Sister [phone] Irish Cadet, Nail Making Machine Setter - 03/27/2019 1:33 PM PDTFormatting of this [...] mg/dL (H)). Lab Results Component Value Date/Time VANCPORT SANILACNDOM 17.7 03/27/2019 05:12 I/O last 3 completed shifts: In: 360 [P.O.:360] Out: 1 [Urine:1] I/O this shift: In: - Out: 2000 Micro/Cultures: BCx - NGTD, BiopsyCx - NGTD Per P&T-approved Vancomycin Protocol Electronically signed by: Aimee Carroll, Nail Making Machine Setter 03/27/2019 13:33Electronically si gned by Ray Joel, PharmD at 03/27/2019 2:04 PM PDT Associated attestation - Ray Joel PharmD - 03/27/2019 2:04 PM PDTI reviewed and agr ee with the assessment and plan. Ray Joel PharmD 03/27/2019 14:04 Randy Corrigan MD - 03/27/2019 10:52 AM PDT [facility] INPATIENT ROUNDING NOTE Date of Service: 03/27/2019 Rounding Physician: Randy Corrigan MD Patient Name: Estefani Tilley : 1945 Medical Record: [id number] Hospital Summary: Estefani Tilley is a 73 y.o. female with a PMHx of ESRD, HTN, Dm type 2, hypothyroidism, HLd, CVA who is under the care of Dr Muñoz at [facility] who dialyzes MWF admitted with possible [...] Tilley 73 y.o. 1945 Med. Record Number: [id number] Date of admission: 03/24/2019 Patient admitted with [...] Electronically signed by: Carlos Jansen, 03/27/2019 7:10 [facility] Katey Solis MD - 03/26/2019 5:40 PM PDT Patient: Estefani Tilley Date of : 1945 Admit Date: 03/24/2019 Date of Service: 03/26/2019 PCP: Francisca Womack PA-C Hospital Day: Hospital Day: 3 Hospital Course: 73-year-old female with history of ESRD on hemodialysis, hypertension, type 2 diabetes, hyp othyroidism, chronic anemia, hyperlipidemia with a history of stroke transferred from [facility] at [place] for evaluation of T11-T12 lesion noted on [...] Single Lumen 03/24/19 2143 Left Lateral Forearm augq-tjw-ienesm daniel ter system 20 gauge;1 09/16 in [...] - 99 mg/dL Final Comment: Performed by [facility] [address] [place] [address] 03/26/2019 06:49 116 (H) 65 - 99 mg/dL Final Comment: Performed by [facility] [address] [place] [address] 03/25/2019 20:37 110 (H) 65 - 99 mg/dL Final Comment: Performed by [facility] [address], [place] [address] 12/09/2018 18:05 113 (H) 70 - 109 [...] this chart may have been created with [employer] voice recognition software. Occasi onal wrong-word or sound-alike substitutions may have occurred due to the inherent mckeon itations of voice recognition software. Please read the chart carefully and recognize, using context, where these substitutions have occurred Jose Gamez, Pharmacy R esident - 03/26/2019 10:52 AM PDTFormatting of this note might be different from the [facility] Progress Note VANCOMYCIN PER PHARMACY [...] Vancomycin Protocol Electronically signed by: Jose Menard, Nail Making Machine Setter 03/26/2019 10:52 sRandy carter MD - 03/26/2019 1 0:38 AM PDT [facility]IENT R[facility] Date of Service: 03/26/2019 Rounding Physician: Randy Corrigan MD Patient Name: Estefani Tilley : 1945 Medical Record: [id number] Hospital Summary: Estefani Tilley is a 73 y.o. female with a PMHx of ESRD, HTN, Dm type 2, hypothyroidism, HLd, CVA who is under the care of Dr uMñoz at [facility] who dialyzes MWF admitted with possible osteo disccitis t11/t12 ASSESSMENT AND PLAN 1. ESRD/HD dependent Access is LUE AVF working well No indications for HD today Usually dialyzes MWF at [facility] Hd tommorow 2. Anemia Hg at [...] Tilley 73 y.o. 1945 Med. Record Number: [id number] Date of admission: 03/24/2019 Patient admitted with [...] Electronically signed by: Carlos Jansen, 03/26/2019 8:03 [facility] Katey Solis MD - 03/25/2019 3:50 PM PDT Patient: Estefani Tilley Date of : 1945 Admit Date: 03/24/2019 Date of Service: 03/25/2019 PCP: Francisca Womack PA-C Hospital Day: Hospital Day: 2 Hospital Course: 73-year-old female with history of ESRD on hemodialysis, hypertension, type 2 diabetes, hyp othyroidism, chronic anemia, hyperlipidemia with a history of stroke transferred from [facility] [place] for evaluation of T11-T12 lesion noted on [...] Single Lumen 03/24/19 2143 Left Lateral Forearm pdgw-fyh-diujti daniel ter system 20 gauge;1 1/4 in [...] - 99 mg/dL Final Comment: Performed by [facility] [address] [place] [address] 03/25/2019 06:52 107 (H) 65 - 99 mg/dL Final Comment: Performed by [facility] [address] [place] [address] 03/24/2019 20:11 112 (H) 65 - 99 mg/dL Final Comment: Performed by [facility] [address] [place] [address] 12/09/2018 18:05 113 (H) 70 - 109 [...] this chart may have been created with [employer] voice recognition software. Occasi onal wrong-word or sound-alike substitutions may have occurred due to the inherent mckeon itations of voice recognition software. Please read the chart carefully and recognize, using context, where these substitutions have occurred su, Randy Nunez MD - 0 03/25/2019 1:47 PM PDT [facility] INPATIENT ROUNDING NOTE Date of Service: 03/25/2019 Rounding Physician: Randy Corrigan MD Patient Name: Estefani Tilley : 1945 Medical Record: [id number] Hospital Summary: Estefani Tilley is a 73 y.o. female with a PMHx of ESRD, HTN, Dm type 2, hypothyroidism, HLd, CVA who is under the care of Dr Muñoz at [facility] who dialyzes MWF admitted with possible osteo disccitis t11/t12 ASSESSMENT AND PLAN 1. ESRD/HD dependent Access is LUE AVF working well No indications for HD today Usually dialyzes MWF at [facility] She is below her EDW an [...] by: Trace Corrigan MD, 03/25/2019, 13:47 ettlerNan, LITHOGRAPHIC PRESS OPERATOR APPRENTICE - 03/25/2019 10:49 AM PDT SOCIAL WORK [...] pt mostly lives at Yina's house outside [facility], but does not like to be tied down because she enjoys attending [employer] [employer] festivals and many events. She does atten d dialysis weekly. Pt has a vehicle and is very independent. ASSESSMENT/CHART REVIEW:73 yr old femalewith a history of ESRD on hemodialysis, hypertens ion, type 2 diabetes, hypothyroidism,chronic anemia,hyperlipidemia, hx of stroke transfe [facility]-T12 lesion noted on MRI concerning fo r osteomyelitis. D/C TRANSPORT: tbd BARRIERS TO D/C: none CONTACTS: Yina La Sister [phone] India Tilley Sister [phone] Carlos Gonzales M D - 03/25/2019 8:34 AM PDT Infectious Diseases Progress Note Pt. Name/Age/: Estfeani Tilley 73 y.o. 1945 Med. Record Number: [id number] Date of admission: 03/24/2019 Patient admitted with [...] Electronically signed by: Carlos Jansen, 03/25/2019 8:34 [facility] Jose Gamez, Nail Making Machine Setter - 03/24/2019 10:46 PM PDTFormatting of this [...] Vancomycin Protocol Electronically signed by: Jose Menard, Nail Making Machine Setter 03/24/2019 22:46 ladsy England MSW - 9 4:53 PM PDT [...] pt mostly lives at Yina's house outside [place], [place], but do es not like to be tied down because she enjoys attending [employer] [employer] festivals and many events. She does attend dialysis weekly. Pt has a vehicle and is very independent. ASSESSMENT/CHART REVIEW:73 yr old female with a history of ESRD on hemodialysis, hypertensi on, type 2 diabetes, hypothyroidism, chronic anemia, hyperlipidemia, hx of stroke transferre d from [facility] for evaluation of T11-T12 lesion noted on MRI concerning for ost eomyelitis. D/C TRANSPORT: tbd BARRIERS TO D/C: none CONTACTS: Yina La Sister [phone] India Tilley Sister [phone] Katey Solis MD - 03/24/2019 3:53 PM PDTPatient seen and examined. Chart reviewed. Briefly, 73-year-old female with history of ESRD on hemodialysis, hypertension, type 2 diab etes, hypothyroidism, chronic anemia, hyperlipidemia with a history of stroke transferred fr om [facility] for evaluation of T11-T12 [...] not have any p raza, consider antidepressants. plaster and stucco worker consulted for concerns for housing concerns [...] 1250 mg IV once given 03/23 @ 7189 at [facility]. 2. Target Trough: [...] Procedure Component Value Units Date/Time Culture, Blood [[id number]] Collected: 03/23/192332 Order Status: Sent Lab Status: In process Updated: 03/23/192348 Specimen: Blood Culture, Blood [[id number]] Collected: 03/23/192254 Order Status: Sent Lab Status: [...] | [facility] | | | POC | [facility] [address], | | SACRED | | | | [place] [address] | | HEART | | | |Performed by [facility] [address], [place] [address] | | MEDICAL | | | | [...] + + | BETH LIZ | [address] | [place] [address] | | | [facility] | | | | | YANY [...] | [facility] | | | POC | [facility] [address], | | SACRED | | | | [place], [place] | | HEART | | | |Performed by [facility] [address], [place], [place] | | MEDICAL | | | [...] SACRED | [address] | [place], [place] | | | HEART MEDICAL CENTER [...] | | LABORATORY | | | | [facility] [address] [place], | | CERNER | | | | [place] [address] | | | | + + + + + + + + | Specimen | + + | Blood specimen | | (specimen) | + + + + + + + | Performing | Address | City/State/Zipcode | Phone Number | | Organization | | | | + + + + + | BETH LIZ | [address] | [place] [address] | | | [facility] | | | | | YANY [...] ENCE | | | Immature | by [facility] [address], | K/uL | SACRED | | | Granulocyte | [place] [address] | | HEART | | | s |Performed by [facility] [address], [place] [address] | | MEDICA L | | | [...] PROVIDEJOSE AE AGUSTO | [address] | [place] [address] | | | [facility] | | | | | LABORATORY [...] by | | | | | | [facility] [address], | | | | | | [place] [address] | | | | + + + + + + + + | Specimen | + + | Blood specimen | | (specimen) | + + + + + + + | Performing | Address | City/State/Zipcode | Phone Number | | Organization | | | | + + + + + | PROVIDEJOSE AE SACRED | [address] | [place] [address] | | | HEART [facility] | | | [...] | | | POC | Performed by [facility] [address] | | SACRED | | | | [address] [place], [place] | | HEART | | | | [address] | | MEDICAL | | | | [...] + + | BETH LIZ | [address] | [place] [address] | | | [facility] | | | | | LABORATORY [...] | | | POC | Performed by [facility] [address] | | SACRED | | | | [address] [place], [place] | | HEART | | | | [address] | | MEDICAL | | | | [...] [address] | [place] [address] | | | HEART MEDICAL CENTER | [...] | | | POC | Performed by [facility] [address] | | SACREVANS | | | | [address], [place] | | HEART | | | | [address] | | MEDICAL | | | | [...] + + | BETH LIZ | [address] | [place] [address] | | | [facility] | | | | | LABORATORY [...] | | | POC | Performed by [facility] [address] | | SACRED | | | | [address], [place] | | HEART | | | | [address] | | MEDICAL | | | | [...] SACRED | [address] | [place], [place] | | | HEART [facility] | | | | | [...] PROVIDE NCE | | | | by [facility] [address], | | SACRED | | | | [place] | | HEART | | | |Performed by [facility] [address] [facility] [address], [place], [place] | | MEDICAL | | | [...] + | BETH LIZ | [address] | [place] [address] | | | [facility] | | | | | YANY [...] LUIS CE | | | | by [facility] [address], | | SACRED | | | | [place] [address] | | HEART | | | |Performed by [facility] [address], [place] [address] | | MEDICAL | | | | [...] + + | JIMRENUKA LIZ | [address] | [place] [address] | | | [facility] | | | | | LABORATORY [...] | | LABORATORY | | | | [facility] [address], | | CERNER | | | | [place] [address] | | | | + + + + + + + + | Specimen | + + | Blood specimen | | (specimen) | + + + + + + + | Performing | Address | City/State/Zipcode | Phone Number | | Organization | | | | + + + + + | BETH LIZ | [address] | [place] [address] | | | [facility] | | | | | YANY [...] ENCE | | | Counted | by [facility] [address], | | SACRED | | | | [place] [address] | | HEART | | | |Performed by [facility] [address] [place], [place] [address] | | MEDICA L | | | [...] + + | BETH LIZ | [address] | [place] [address] | | | [facility] | | | | | LABORATORY [...] | | | POC | Performed by [facility] [address] | | SACRED | | | | [address] [place] | | HEART | | | | [address] | | MEDICAL | | | | [...] SACRED | [address] | [place] | | | [facility] | | | | | LABORATORY [...] PROVIDEJOSE AE | | | POC | [facility] [address], | | SACRED | | | | [place] | | HEART | | | |Performed by [facility] [address], [place] [address] | | MEDICAL | | | | [...] + + | BETH LIZ | [address] | [place] [address] | | | HEART MEDICAL CENTER | [...] | | | POC | Performed by [facility] [address] | | SACRED | | | | [address] [place], [place] | | HEART | | | | [address] | | MEDICAL | | | | [...] + + | BETH LIZ | [address] | [place] [address] | | | [facility] | | | | | LABORATORY [...] PROVIDEJOSE AE | | | POC | [facility] [address], | | SACRED | | | | [place] [address] | | HEART | | | |Performed by [facility] [address], [place] | | MEDICAL | | | [...] [address] | [place] | | | [facility] | | | | | LABORATORY [...] by | | | | | | [facility] [address], | | | | | | [place] [address] | | | | + + + + + + + + | Specimen | + + | Blood specimen | | (specimen) | + + + + + + + | Performing | Address | City/State/Zipcode | Phone Number | | Organization | | | | + + + + + | BETH LIZ | [address] | [place] [address] | | | [facility] | | | | | YANY [...] ENCE | | | Counted | by [facility] [address], | | SACRED | | | | [place] [address] | | HEART | | | |Performed by [facility] [address], [place] [address] | | MEDICA L | | | [...] + + | BETH LIZ | [address] | [place] [address] | | | [facility] | | | | | LABORATORY [...] PROVIDEN CE | | | | by [facility] [address], | | SACRED | | | | [place] [address] | | HEART | | | |Performed by [facility] [address], [place] [address] | | MEDICAL | | | | [...] SACRED | [address] | [place] [address] | | | [facility] | | | | | LABORATORY [...] | | LABORATORY | | | | [facility] [address] [place], | | [place] | | | | [place] [address] | | | | + + + + + + + + | Specimen | + + | Blood specimen | | (specimen) | + + + + + + + | Performing | Address | City/State/Zipcode | Phone Number | | Organization | | | | + + + + + | JIMJOSE ADora LIZ | [address] | [place] [address] | | | [facility] | | | | | LABORATORY [...] | | | POC | Performed by [facility] [address] | | SACRED | | | | [address] [place] | | HEART | | | | [address] | | MEDICAL | | | | [...] + + | BETH LIZ | [address] | [place] [address] | | | [facility] | | | | | LABORATORY [...] | | | POC | Performed by [facility] [address] | | SACRED | | | | [address] [place], [place] | | HEART | | | | [address] | | MEDICAL | | | | [...] JIMJOSE ADora AGUSTO | [address] | [place] [address] | | | [facility] | | | | | LABORATORY [...] | PROVIDENCE | | | POC | [facility] [address], | | SACRED | | | | [place] [address] | | HEART | | | |Performed by [facility] [address], [place] [address] | | MEDICAL | | | | [...] [address] | [place] [address] | | | [facility] [...] | 14 (L)Comment: eGFR<60 | >=90 | PROVIDEMDE | | | GFR | consistent with impaired | mL/min/1.73m2 | SACRED | | | | kidney function.For | | HEART | | | | Americans, | | MEDICAL | | | | multiply the calculated | | CENTER | | | | GFR by 1.210Performed by | | LABORATORY | | | | [facility] [address], | | CERNER | | | | [place] [address] | | | | + + + + + + + + | Specimen | + + | Blood specimen | | (specimen) | + + + + + + + | Performing | Address | City/State/Zipcode | Phone Number | | Organization | | | | + + + + + | BETH LIZ | [address] | [place] [address] | | | [facility] | | | | | LABORATORY [...] PROVIDE NCE | | | | by [facility] [address], | | SACRED | | | | [place] [address] | | HEART | | | |Performed by [facility] [address], [place] [address] | | MEDICAL | | | | [...] + + | BETH LIZ | [address] | [place] [address] | | | [facility] | | | | | LABORATORY [...] | | | POC | Performed by [facility] [address] | | SACRED | | | | [address], [place] | | HEART | | | | [address] | | MEDICAL | | | | [...] [address] | [place] [address] | | | HEART MEDICAL CENTER | [...] | | | POC | Performed by [facility] [address] | | SACRED | | | | [address] [place] | | HEART | | | | [address] | | MEDICAL | | | | [...] + + | BETH LIZ | [address] | [place] [address] | | | [facility] | | | | | LABORATORY [...] | PROVIDENCE | | | POC | [facility] [address], | | SACRED | | | | [place] [address] | | HEART | | | |Performed by [facility] [address], [place] [address] | | MEDICAL | | | | [...] Ave. | [place] | | | [facility] | | | | | LABORATORY [...] | RIMAE | | | POC | [facility] [address], | | SACRED | | | | [place] | | HEART | | | |Performed by [facility] [address], [place] [address] | | MEDICAL | | | | [...] + + | BETH LIZ | [address] | [place] [address] | | | [facility] [...] by | | | | | | [facility] [address], | | | | | | [place] [address] | | | | + + + + + + + + | Specimen | + + | Blood specimen | | (specimen) | + + + + + + + | Performing | Address | City/State/Zipcode | Phone Number | | Organization | | | | + + + + + | JIMRENUKA LIZ | [address] | [place] [address] | | | [facility] | | | | | LABORATORY [...] | | | POC | Performed by [facility] [address] | | SACRED | | | | [address] [place] | | HEART | | | | [address] | | MEDICAL | | | | [...] [address] | [place] [address] | | | [facility] [...] | | | POC | Performed by [facility] [address] | | SACRED | | | | [address], [place] | | HEART | | | | [address] | | MEDICAL | | | | [...] + | JIMJOSE ADora AGUSTO | [address] | [place] [address] | | | [facility] | | | | | LABORATORY [...] | | | POC | Performed by [facility] [address] | | SACRED | | | | [address] [place] | | HEART | | | | [address] | | MEDICAL | | | | [...] SACRED | [address] | [place] [address] | | | [facility] | | | | | LABORATORY [...] BETH | | | | Performed by [facility] [address] | | AGUSTO | | | | [address], [place] | | HEART | | | | [address] | | MEDICAL | | | | [...] JIMJOSE ADora LIZ | [address] | [place] [address] | | | [facility] | | | | | LABORATORY [...] | | | POC | Performed by [facility] [address] | | SACRED | | | | [address] [place], [place] | | HEART | | | | [address] | | MEDICAL | | | | [...] + + | [facility] SACRED | [address] | [place] [address] | | | [facility] | | | | | LABORATORY [...] by | | | | | | [facility] [address], | | | | | | [place] [address] | | | | + + + + + + + + | Specimen | + + | Blood specimen | | (specimen) | + + + + + + + | Performing | Address | City/State/Zipcode | Phone Number | | Organization | | | | + + + + + | BETH LIZ | [address] | [place] [address] | | | [facility] | | | | | LABORATORY [...] | | LABORATORY | | | | [facility] [address] [place], | | [place] | | | | [place] [address] | | | | + + + + + + + + | Specimen | + + | Blood specimen | | (specimen) | + + + + + + + | Performing | Address | City/State/Zipcode | Phone Number | | Organization | | | | + + + + + | BETH LIZ | [address] | [place] [address] | | | HEART [facility] | | | [...] PROVIDE NCE | | | | by [facility] [address], | | SACRED | | | | [place] [address] | | HEART | | | |Performed by [facility] [address], [place] [address] | | MEDICAL | | | | [...] LIZ | [address] | [place] [address] | | | HEART [facility] | | | | | [...] CE | | | B-12 | by [facility] [address], | | SACRED | | | | [place] [address] | | HEART | | | |Performed by [facility] [address], [place] [address] | | MEDICAL | | | | [...] + | [facility] | [address] | [place] [address] | | | [facility] | | | | | LABORATORY [...] by | | | | | | [facility] [address], | | | | | | [place] [address] | | | | + + + + + + + + | Specimen | + + | Blood specimen | | (specimen) | + + + + + + + | Performing | Address | City/State/Zipcode | Phone Number | | Organization | | | | + + + + + | BETH LIZ | [address] [address] | [place] [address] | | | [facility] | | | | | LABORATORY [...] | | | POC | Performed by [facility] [address] | | SACRED | | | | [address]th [place] | | HEART | | | | [address] | | MEDICAL | | | | [...] [address] | [place] [address] | | | [facility] | | | | | LABORATORY [...] | | | POC | Performed by [facility] [address] | | SACRED | | [...] | | | POC | Performed by [facility] [address] | | SACRED | | | | [place] | | HEART | | | | [address] | | MEDICAL | | | | [...] + + | BETH LIZ | [address] | [place] [address] | | | [facility] | | | | | LABORATORY [...] PROVIDE NCE | | | | by [facility] [address], | | SACRED | | | | [place] [address] | | HEART | | | |Performed by [facility] [address], [place] [address] | | MEDICAL | | | | [...] + + | BETH LIZ | [address] | [place] [address] | | | [facility] | | | | | LABORATORY [...] JIMN CE | | | | by [facility] [address], | | SACRED | | | | [place] [address] | | HEART | | | |Performed by [facility] [address], [place] [address] | | MEDICAL | | | | [...] + + | RIMAE AGUSTO | [address] | [place] [address] | | | [facility] | | | | | LABORATORY [...] | | LABORATORY | | | | [facility] [address], | | [place] | | | | [place] [address] | | | | + + + + + + + + | Specimen | + + | Blood specimen | | (specimen) | + + + + + + + | Performing | Address | City/State/Zipcode | Phone Number | | Organization | | | | + + + + + | JIMRENUKA LIZ | [address] | [place] [address] | | | [facility] | | | | | LABORATORY [...] | | | POC | Performed by [facility] [address] | | SACRED | | | | [address]th [place] | | HEART | | | | [address] | | MEDICAL | | | | [...] + | JIMJOSE ADora AGUSTO | [address] | [place] [address] | | | [facility] | | | | | LABORATORY [...] | | | POC | Performed by [facility] [address] | | SACRED | | | | [address] [place] | | HEART | | | | [address] | | MEDICAL | | | | [...] SACRED | [address] | [place] [address] | | | [facility] | | | | | LABORATORY [...] | SACRED | | | Total | [address] | | HEART | | | | [address] [place], [place] | | MEDICAL | | | | [phone] | | CENTER | | | | Lauro HOLDEN Ph:[phone] | | LABORATORY | | | | [...] + + | BETH LIZ | [address] | [place] [address] | | | [facility] | | | | | YANY [...] | SACRED | | | | by [facility] [address], | | HEART | | | | [place] [address] | | MEDICAL | | | | [...] SACRED | [address] | [place] [address] | | | [facility] | | | | | LABORATORY [...] | SACRED | | | | by [facility] [address], | | HEART | | | | [place] [address] | | MEDICAL | | | | [...] + + | BETH LIZ | [address] | [place] [address] | | | [facility] | | | | | LABORATORY [...] | MEDICAL | | | | by [facility] [address], | | CENTER | | | | [place] [address] | | LABORATORY | | | |Performed by [facility] [address], [place] [address] | | CERNER | | | | [...] | [facility] | [address] | [place] [address] | | | [facility] | | | | | LABORATORY [...] | | | POC | Performed by [facility] [address] | | SACREVANS | | | | [place] | | HEART | | | | [address] | | MEDICAL | | | | [...] + + | BETH LIZ | [address] | [place] [address] | | | [facility] | | | | | YANY [...] | | | POC | Performed by [facility] [address] | | SACRED | | | | [address]th [place] | | HEART | | | | [address] | | MEDICAL | | | | [...] SACRED | [address] | [place] [address] | | | HEART MEDICAL CENTER | [...] CENTER | | | | 3.5Performed by [facility] 101 | | LABORATORY | | | | [address]. [place] | | [place] | | | | [address] | | | | + + + + + + + + | Specimen | + + | Blood specimen | | (specimen) | + + + + + + + | Performing | Address | City/State/Zipcode | Phone Number | | Organization | | | | + + + + + | BETH LIZ | [address] | [place] [address] | | | [facility] [...] | HEART | | | s | [phone] | | MEDICAL | | | | [...] + | BETH LIZ | [address] [place] [address]. | [place] [address] | | | [facility] | | | | | LABORATORY [...] | | LABORATORY | | | | [facility] [address], | | [place] | | | | [place] [address] | | | | + + + + + + + + | Specimen | + + | Blood specimen | | (specimen) | + + + + + + + | Performing | Address | City/State/Zipcode | Phone Number | | Organization | | | | + + + + + | RIMAE SACRED | [address] | [place] [address] | | | [facility] | | | | | LABORATORY [...] | | | First dose on [facility] 03/30/19 at 1130 | | AM [...] scheduled: AC, NPO, Daytime | | | 6857-3944 Use NIGHT DOSE for | | | doses scheduled: HS, 3AM, | | | Nighttime [id number] If the BG is | | | [...]
--- OUTSIDE RECORDS SUMMARY | ~2019-09-08 | XMS | Encounter Summary ---
Demographics + + + | Address | [address] | | | [place] [address] | + + + | Home Phone [...] | [facility] | | | and [place] | + + + | Organization | [facility] | | | and [place] | + + + | Address | Unknown | + + + | Phone | Unavailable | + + + Support + + + + + | Name | Relationship | Address | Phone | + + + + + | India Tilley | ECON | [address] | | | | | [place], [place] | | | | | [address] | | + + + + + | Yina La | ECON | Unknown | | + + + + + | Yina Peterson | ECON | Unknown | | + + + + + | Leatha Casillas | ECON | Unknown | | + + + + + Care Team Providers + +------+ + | Care Program Officer Name | Role | Phone | + +------+ + PCP | Unavailable | + +------+ + Encounter Details +--------+ + + + + | Date | Type | Department | Care Team | Description | +--------+ + + + + | 02/03/ | Hospital | [facility] | Scott Koroma, | Closed fracture of | | 2019 | Encounter | MED CTR DERICK XRAY | MD Nash SEPULVEDA | neck of right femur, | | | | [address] [place] | [place], [place] | initial encounter | | | | [place], [place] | [id number] | ([facility]); Right hip | | | | [address] | | pain; H/O major | | | | [phone] | | orthopedic surgery | +--------+ + [...] | | | ([facility]), Right hip | | | | [...] | | | | encounter ([facility]) | | | | | | [...]
--- OUTSIDE RECORDS SUMMARY | ~2019-09-08 | XMS | Encounter Summary ---
Demographics + + + | Address | [address] | | | [place] [address] | + + + | Home Phone [...] | Author | [facility] | | | and Kamaljitana | + + + | Organization | [facility] | | | and [place] | + + + | Address | Unknown | + + + | Phone | Unavailable | + + + Support + + + + + | Name | Relationship | Address | Phone | + + + + + | India Tilley | ECON | [address] | | | | | [place], [place] | | | | | [address] | | + + + + + | Yina La | ECON | Unknown | | + + + + + | Yina Peterson | ECON | Unknown | | + + + + + | Leatha Casillas | ECON | Unknown | | + + + + + Care Team Providers + +------+ + | Care Church Worker Name | Role | Phone | [...] + + | 09/22/ | Telephone | [facility] [place] | Darlin Moseley W, | Nephrology | | 2018 | | NEPHROLOGY [address] | [address] | Appointment | | | | [address] [facility] [address] | [address] [place] | | | | | [place] | [place] [address] | | | | | [address] | [phone] | | | | | [phone] | | | +--------+ + + + [...]
--- OUTSIDE RECORDS SUMMARY | ~2019-09-08 | XMS | Encounter Summary ---
Demographics + + + | Address | [address] | | | [place] [address] | + + + | Home Phone [...] | Author | [facility] | | | and Kamal[place]it[place] | + + + | Organization | [facility] | | | and [place] | + + + | Address | Unknown | + + + | Phone | Unavailable | + + + Support + + + + + | Name | Relationship | Address | Phone | + + + + + | India Tilley | ECON | [address] | | | | | [place], [place] | | | | | [address] | | + + + + + | Yina La | ECON | Unknown | | + + + + + | Yina Peterson | ECON | Unknown | | + + + + + | Leatha Casillas | ECON | Unknown | | + + + + + Care Team Providers + +------+ + | Care Electric Refrigerator Preparer Name | Role | Phone | + [...] | [address] | [address], [place] | | | | | [place] | [address] [place] | | | | | [address] | [address] | | | | | [phone] | | | +--------+ + + + [...] documented as of this encounter Progress Celeste Brownign RN - 03/11/2017 2:10 PM [employer] for consult: need to fax to [facility] closer t o appt. RU [...]
--- OUTSIDE RECORDS SUMMARY | ~2019-09-08 | XMS | Encounter Summary ---
Demographics + + + | Address | [address] | | | [place] [address] | + + + | Home Phone [...] | Author | [facility] | | | and Kamaljit[place] | + + + | Organization | [facility] | | | and [place] | + + + | Address | Unknown | + + + | Phone | Unavailable | + + + Support + + + + + | Name | Relationship | Address | Phone | + + + + + | India Tilley | ECON | [address] | | | | | [place], [place] | | | | | [address] | | + + + + + | Yina La | ECON | Unknown | | + + + + + | Yina Peterson | ECON | Unknown | | + + + + + | Leatha Casillas | ECON | Unknown | | + + + + + Care Team Providers + +------+ + | Care Manufacturing Finance Manager Name | Role | Phone | + +------+ + PCP | Unavailable | + +------+ + Encounter Details +--------+ + + + + | Date | Type | Department | Care Team | Description | +--------+ + + + + | 07/22/ | Hospital | [facility] | Gopi Muñoz | | | 2005 | Encounter | MED CTR XRAY [address] | M, DO [address] | | | | | [place] | [place] | | | | | [place] [address] | [place] | | | | | [phone] | [address] | | | | | [...]
--- OUTSIDE RECORDS SUMMARY | ~2019-09-08 | XMS | Encounter Summary ---
Demographics + + + | Address | [address] | | | [place] [address] | + + + | Home Phone [...] + | Author | [facility] | | | and [place]al[place]it[place] | + + + | Organization | [facility] | | | and [place] | + + + | Address | Unknown | + + + | Phone | Unavailable | + + + Support + + + + + | Name | Relationship | Address | Phone | + + + + + | India Tilley | ECON | [address] | | | | | [place], [place] | | | | | [address] | | + + + + + | Yina La | ECON | Unknown | | + + + + + | Yina Peterson | ECON | Unknown | | + + + + + | Leatha Casillas | ECON | Unknown | | + + + + + Care Team Providers + +------+ + | Care Fire Sprinkler Inspector Name | Role | Phone | [...] | | | | renal | [place]-C [address] | [address] [place] [address] | | | | | disease | | [place] | | | | | ([facility]) | CONF[facility]ATED | [address] | | | | | Procedures | WAY | [place] | | | | | IN OFFICE | [place], | [address] Phone: | | | | | OUTPATIENT | [place] [address] | [phone] | | | | | VISIT 25 | Phone: | Fax: | | | | | MINUTES | [phone] | [phone] | | | | | | Fax: | | | | | | | [phone] | | +--------+--------+ + + + + Encounter Details +--------+ + + + + | Date | Type | Department | Care Team | Description | +--------+ + + + + | 02/28/ | Off-Site | [facility] | Gopi Muñoz | End stage renal | | 2018 | Visit | NEPHROLOGY [address] | M, DO [address] | disease (HCC) | | | | [address] | [place], [address] | (Primary Dx) | | | | [place] | [place] | | | | | [address] | [address] | | | | | [phone] | | | +--------+ + + + [...] to HTN and diabetic glomerulosclerosis at the [facility]. She also has depression, long [...] Will recheck [place] 2 [place]. [place] Santos Stephenson MD, [facility] documented in thi s encounter Plan of Treatment Not on filedocumented as of this encounter Visit Diagnoses + + | Diagnosis | + + | End stage renal disease (HCC) - Primary End stage renal disease | + + documented in this encounter"
--- OUTSIDE RECORDS SUMMARY | ~2019-09-08 | XMS | Encounter Summary ---
Demographics + + + | Address | [address] | | | [place] [address] | + + + | Home Phone [...] [facility] | | | and [place]al[place]itana | + + + | Organization | [facility] | | | and [place] | + + + | Address | Unknown | + + + | Phone | Unavailable | + + + Support + + + + + | Name | Relationship | Address | Phone | + + + + + | India Tilley | ECON | [address] | | | | | [place], [place] | | | | | [address] | | + + + + + | Yina La | ECON | Unknown | | + + + + + | Yina Peterson | ECON | Unknown | | + + + + + | Leatha Casillas | ECON | Unknown | | + + + + + Care Team Providers + +------+ + | Care Forest Ecology Professor Name | Role | Phone | [...] NEPHROLOGY [address] | M, DO [address] | | | | | [address] | [place], [address] | | | | | [place] | [place] | | | | | [address] | [address] | | | | | [phone] | | | +--------+ + + + [...] HD in 018and then was DC [facility] [place], [place]. Unfortunat brandy, she has had intermittent [...] Gopi Muñoz DO. 07/30/19 3:11 PM CC: [facility], [place], [place] [facility], [place], [place]. document ed in this encounter Plan of Treatment Not on filedocumented as of this encounter Visit Diagnoses + + | Diagnosis | + + | ESRD (end stage renal disease) on dialysis (HCC) - Primary End stage renal disease | + + documented in this encounter
--- OUTSIDE RECORDS SUMMARY | ~2019-09-08 | XMS | Encounter Summary ---
Demographics + + + | Address | [address] | | | [place] [address] | + + + | Home Phone [...] Author | [facility] | | | and Kamaljitana | + + + | Organization | [facility] | | | and [place] | + + + | Address | Unknown | + + + | Phone | Unavailable | + + + Support + + + + + | Name | Relationship | Address | Phone | + + + + + | India Tilley | ECON | [address] | | | | | [place], [place] | | | | | [address] | | + + + + + | Yina La | ECON | Unknown | | + + + + + | Yina Peterson | ECON | Unknown | | + + + + + | Leatha Casillas | ECON | Unknown | | + + + + + Care Team Providers + +------+ + | Care Tar Heel Name | Role | Phone | + +------+ + PCP | Unavailable | + +------+ + Encounter Details +--------+ + + + + | Date | Type | Department | Care Team | Description | +--------+ + + + + | 05/16/ | Hospital | [facility] | Patricia, | | | 2007 - | Encounter | MED CTR CANCER | Venkatesh Forte MD [address] | | | | | [place] [address] | [facility] | | | 06/12/ | | [place], [place] | [place] [address] | | | 2007 | | [address] | [phone] | | | | | [phone] | | | +--------+ + + + [...]
--- OUTSIDE RECORDS SUMMARY | ~2019-09-08 | XMS | Encounter Summary ---
Demographics + + + | Address | [address] | | | [place] [address] | + + + | Home Phone [...] Author | [facility] | | | and [place] | + + + | Organization | [facility] | | | and [place] | + + + | Address | Unknown | + + + | Phone | Unavailable | + + + Support + + + + + | Name | Relationship | Address | Phone | + + + + + | India Tilley | ECON | [address] | | | | | [place], [place] | | | | | [address] | | + + + + + | Yina La | ECON | Unknown | | + + + + + | Yina Peterson | ECON | Unknown | | + + + + + | Leatha Casillas | ECON | Unknown | | + + + + + Care Team Providers + +------+ + | Care Spring Up Supervisor Name | Role | Phone | [...] | Infection | Nick Miller | [address]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 | [place], | [place], | | | | | 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 | [place] [address] | | | | | al disc | [address] | Phone: | | | | | (pyogenic), | [place], [place] | [phone] | | | | | thoracic | [address] | Fax: | | | | | region (HCC) | Phone: | [phone] | | | | | | [phone] | | | | | | 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: | | | | | | s of | [phone] | | | | | | thoracic [...] + + | 06/13/ | Office | [facility] | Fabiana Miller, | 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 Stephenson SHUNT PLACEMENT/INSERTION N/A 11/08/2017 Procedure: Tunneled Hemodialysis Catheter Placement; Surgeon: Nora Leo MD; Location : [facility] MAIN OR SHUNT PLACEMENT/INSERTION Right 02/04/2018 Procedure: INSERTION SHUNT HEMODIALYSIS W/ PERMACATH; Surgeon: Heather Navarro MD; L ocation: [facility] MAIN OR VEIN SURGERY Right 01/04/2018 Procedure: Right Transposed Basilic Vein to Proximal Radial Artery; Surgeon: Santos Stephenson MD, FACS; Location: [facility] MAIN OR SOCIAL HISTORY Social [...] receive any antibiotic therapy intravenously at the [facility]. She was educated about the risks of permanent central line and risk of bacteremia. We are hoping to get her repeat CT-guided procedure within the next 7 days. The patient wi shes to do this in [place] and we will explore that possibility, otherwise she was expla ined that she has to come to the [facility]. Side effects of medications, duration of [...] REFERENCE | | | | performed at [facility];[address] | | LAB | | | | [place] | | [facility] | | | | [address];[place] [address] | | LABORATORY | | + + + + + + + + | Specimen | + + | Blood | + + + + + + + | Performing | Address | City/State/Zipcode | Phone Number | | Organization | | | | + + + + + | REFERENCE LAB | [address] | [place] [address] | [phone] | | [facility] | Bl[address] | | | | LABORATORY | | | | + + + + + | REFERENCE LAB | [address] | [place] [address] | | | [facility] | Blvd[address] | [...] REFERENCE | | | | performed at [facility];[address] | | LAB | | | | [place] | | [facility] | | | | [address];[place] [address] | | LABORATORY | | + + + + + + + + | Specimen | + + | Blood | + + + + + + + | Performing | Address | City/State/Zipcode | Phone Number | | Organization | | | | + + + + + | REFERENCE LAB | [address] [place] [address] | [place] [address] | [phone] | | [facility] | Blvd. | | | | LABORATORY | | | | + + + + + | REFERENCE LAB | [address] [place] [address] | [place] [address] | | | [facility] | Blvd. | [...]
--- OUTSIDE RECORDS SUMMARY | ~2019-09-08 | XMS | Encounter Summary ---
Demographics + + + | Address | [address] | | | [place] [address] | + + + | Home Phone [...] Author | [facility] | | | and Kamaljit[place] | + + + | Organization | [facility] | | | and [place] | + + + | Address | Unknown | + + + | Phone | Unavailable | + + + Support + + + + + | Name | Relationship | Address | Phone | + + + + + | India Tilley | ECON | [address] | | | | | [place], [place] | | | | | [address] | | + + + + + | Yina aL | ECON | Unknown | | + + + + + | Yina Peterson | ECON | Unknown | | + + + + + | Leatha Casillas | ECON | Unknown | | + + + + + Care Team Providers + +------+ + | Care Storage Brine Worker Name | Role | Phone | + +------+ + PCP | Unavailable | + +------+ + Encounter Details +--------+ + + + + | Date | Type | Department | Care Team | Description | +--------+ + + + + | 11/08/ | [facility] | [facility] | Provider, | | | 2018 | Exam | MED CTR EXTERNAL | [address] | | | | | IMAGING | [address] | | | | | [phone] | [place] [address] | | +--------+ + + + + [...] comparison only - no result from [place]. | [facility] | + + + + +---------+ + + | Performing | Address | City/State/Zipcode | Phone Number | | Organization | | | | + +---------+ + + | [facility] | | | | + +---------+ + + documented in this encounter Visit Diagnoses Not on filedocumented in this encounter"
--- OUTSIDE RECORDS SUMMARY | ~2019-09-08 | XMS | Encounter Summary ---
Demographics + + + | Address | [address] | | | [place] [address] | + + + | Home Phone [...] Author | [facility] | | | and [place] | + + + | Organization | [facility] | | | and [place] | + + + | Address | Unknown | + + + | Phone | Unavailable | + + + Support + + + + + | Name | Relationship | Address | Phone | + + + + + | India Tilley | ECON | [address] | | | | | [place], [place] | | | | | [address] | | + + + + + | Yina La | ECON | Unknown | | + + + + + | Yina Peterson | ECON | Unknown | | + + + + + | Leatha Casillas | ECON | Unknown | | + + + + + Care Team Providers + +------+ + | Care Observatory Director Name | Role | Phone | + +------+ + PCP | Unavailable | + +------+ + Encounter Details +--------+ + + + + | Date | Type | Department | Care Team | Description | +--------+ + + + + | 11/08/ | Imaging | [facility] | Provider, | | | 2018 | Exam | MED CTR EXTERNAL | [address] | | | | | IMAGING | [address] | | | | | [phone] | [place] [address] | | +--------+ + + + + [...] for comparison only - no result from [place]. | [facility] | + + + + +---------+ + + | Performing | Address | City/State/Zipcode | Phone Number | | Organization | | | | + +---------+ + + | [facility] | | | | + +---------+ + + documented in this encounter Visit Diagnoses Not on filedocumented in this encounter"
--- OUTSIDE RECORDS SUMMARY | ~2019-09-08 | XMS | Encounter Summary ---
Demographics + + + | Address | [address] | | | [place] [address] | + + + | Home Phone [...] + | Author | [facility] | | | and [place]it[place] | + + + | Organization | [facility] | | | and [place] | + + + | Address | Unknown | + + + | Phone | Unavailable | + + + Support + + + + + | Name | Relationship | Address | Phone | + + + + + | India Tilley | ECON | [address] | | | | | [place], [place] | | | | | [address] | | + + + + + | Yina La | ECON | Unknown | | + + + + + | Yina Peterson | ECON | Unknown | | + + + + + | Leatha Casillas | ECON | Unknown | | + + + + + Care Team Providers + +------+ + | Care Gis Software Engineer Name | Role | Phone | [...] + + | 01/05/ | Telephone | [facility] | Santos Stephenson | Appointment | | 2017 | | SURGERY [address] | MD Kinga, FACS [address] | | | | | [place], [place] | [address] [facility] | | | | | [address] | [place] [address] | | | | | [phone] | [phone] | | | | | | | [...]
--- OUTSIDE RECORDS SUMMARY | ~2019-09-08 | XMS | Encounter Summary ---
Demographics + + + | Address | [address] | | | [place] [address] | + + + | Home Phone [...] + | Author | [facility] | | | and [place] | + + + | Organization | [facility] | | | and [place] | + + + | Address | Unknown | + + + | Phone | Unavailable | + + + Support + + + + + | Name | Relationship | Address | Phone | + + + + + | India Tilley | ECON | [address] | | | | | [place], [place] | | | | | [address] | | + + + + + | Yina La | ECON | Unknown | | + + + + + | Yina Peterson | ECON | Unknown | | + + + + + | Leatha Casillas | ECON | Unknown | | + + + + + Care Team Providers + +------+ + | Care Commercial Leasing Manager Name | Role | Phone | [...] + + | 06/01/ | Telephone | [facility] [place] | Darlin Moseley W, | Nephrology | | 2017 | | NEPHROLOGY [address] | Appointment | | | | [facility] [address] | [address] [place] | | | | | [place] | [place] [address] | | | | | [address] | [phone] | | | | | [phone] | | | +--------+ + + + [...]
--- OUTSIDE RECORDS SUMMARY | ~2019-09-08 | XMS | Encounter Summary ---
Demographics + + + | Address | [address] | | | [place] [address] | + + + | Home Phone [...] [facility] | | | and [place] | + + + | Organization | [facility] | | | and [place] | + + + | Address | Unknown | + + + | Phone | Unavailable | + + + Support + + + + + | Name | Relationship | Address | Phone | + + + + + | India Campos | ECON | [address] | | | | | [place], [place] | | | | | [address] | | + + + + + | Yina La | ECON | Unknown | | + + + + + | Yina Peterson | ECON | Unknown | | + + + + + | Leatha Casillas | ECON | Unknown | | + + + + + Care Team Providers + +------+ + | Care Microfiche Camera Operator Name | Role | Phone [...] + + | 10/01/ | Hospital | [facility] | Olegario Peng, | Hypertensive | | 2018 - | Encounter | [facility] | [address] | emergency; Chest | | | | [address] [place] | [place] | pain, unspecified | | 10/06/ | | [place] [address] | [address] | type; Leg swelling; | | 2017 | | [phone] | | CKD (chronic kidney | | | | | Rupal Laguna MD | disease), stage IV | | | | | [address] | (HCC); Type 2 | | | | | [place] | diabetes mellitus | | | | | [address] | with stage 4 chronic | | | | | | kidney disease, | | | | | Nikhil Vega, | with long-term | | | | | MD Mayelin [address] | current use of | | | | | [address] [place] | insulin (HCC); | | | | | [place] [address] | Anemia of chronic | | | | | [phone] | renal failure, stage | | | [...] Keys MD - 10/06/2017 10:38 AM PST [facility] DISCHARGE SUMMARY Pt. Name/Age/: Estefani Campos 72 [...] Specialty: Nephrology Why: at 4:30PM, at the [facility], [address], [place], [place], ([phone]). Contact information: [address] [facility], [facility] 100 [facility] [address] Santos Stephenson MD, FACS In 2 weeks. Specialties: General Surgery, Vascular Surgery Why: Dr. Stephenson's Office, the Vascular Surgeon, will Call you with the time.* Contact information: [address] [facility] [address] RESULTS: Narrative TECHNIQUE: Renal and bladder [...] pressures were in the 230 range at [facility] and she received IV hydralazine and was [...] signed by: Edison Keys MD, 10/06/2017 10:48 [facility] Portions of this chart may have been created with Punch! voice recognition software. Occasi onal wrong-word or [...] your Appt. with Dr. Muñoz at the [facility]. 2. Dr. Stephenson Office, the [...] to come to the [facility] [place], [place] for follow up on 11/08/17. We sent a Referral to Dr. Stephenson's Office for an outpt appt. for an AVF construction in the very near future. They will call her with the Appt. time per [facility] policy. Will attempt to wait until AVF is mature before starting outpt HD, as long as uremic sympto ms do not intervene. Thanks. [facility] Edison Andrea M D - 10/05/2017 2:20 PM PST [facility] PM[facility] Hospitalist Progress Note Estefani Campos [...] that she should be followed by a shingles roofer helper night discussed this issue with her. I [...] as outlined above. Edison Keys 10/05/2017 14:20 [facility] Portions of this chart may have been created with Punch! voice recognition software. Occasi onal wrong-word or sound-alike substitutions may have occurred due to the inherent mckeon itations of voice recognition software. Please read the chart carefully and recognize, using context, where these substitutions have occurred Mayelin Sanders MD - 10/04/2017 5:37 PM PST [facility] HOSPITALIST PROGRESS NOTE Patient: Estefani Campos : 1945: Age: 72 y.o. MedRec: [id number] Admission date: 10/01/2017 Hospital day # : [...] Procedure Component Value Units Date/Time Culture, MRSA [[id number]] Collected: 10/02/17 0803 Order Status: Completed Lab [...] Code: FULL Mayelin Vega MD 10/04/2017 17:38 [facility] Portions of this chart may have been created with Punch! voice recognition software. Occasi onal wrong-word or [...] performed and electronically signed by Puja Whitman, Itinerant Teacher Assistant 2017 10:09 Electronically signed by: Ta Ronquillo RPH 10/04/2017 10:14 Diann Sanders MD - 10/03/2017 12:46 PM PST [facility] [place] HOSPITALIST PROGRESS NOTE Patient: Estefani Campos : 1945: Age: 72 y.o. MedRec: [id number] Admission date: 10/01/2017 Hospital day # : [...] utaneous 4x Daily WC and HS Rupal aLguna MD 1 Units at 10/03/17 1238 labetalol [...] Procedure Component Value Units Date/Time Culture, MRSA [[id number]] Collected: 10/02/17 0803 Order Status: Completed Lab [...] Code: FULL Mayelin Vega MD 10/03/2017 12:46 [facility] Portions of this chart may have been created with Punch! voice recognition software. Occasi onal wrong-word or sound-alike substitutions may have occurred due to the inherent mckeon itations of voice recognition software. Please read the chart carefully and recognize, using context, where these substitutions have occurred ayelin Engle MD - 10/02/2017 9:13 AM PSTFormatting of this note might be different from the or iginal. [facility] [place] HOSPITALIST PROGRESS NOTE Patient: Estefani Campos : 1945: Age: 72 y.o. MedRec: [id number] Admission date: 10/01/2017 Hospital day # : [...] ECGs available Confirmed by KEN ELLISON MD ([id number]) on 10/02/2017 7:49:20 AM Lipid Panel Collection [...] Procedure Component Value Units Date/Time Culture, MRSA [[id number]] Collected: 10/02/17802 Order Status: Sent Lab Status: [...] is in the process of establishing with [facility]. Additionally, she reports [...] with tele Mayelin Vega MD 10/02/2017 9:13 [facility] Portions of this chart may have been created with Punch! voice recognition software. Occasi onal wrong-word or [...] + | [facility] | [address] | [place] | [phone] | | [facility] | | [address] | | | - LABORATORY | | [...] [address] | [place] | [phone] | | [facility] | | [address] | | | - LABORATORY | | [...] mL/min/1.73m2 | [facility] | | | VINCENTIAN | | | MEDICAL | | | [...] [address] | [place] | [phone] | | [facility] | | [address] | | | - LABORATORY | | [...] + | [facility] | [address] | [place] | [phone] | | [facility] | | [address] | | | - LABORATORY | | [...] ST. | [address] | [place] | [phone] | | [facility] | | [address] | | | - LABORATORY | | [...] [address] | [place] | [phone] | | [facility] | | [address] | | | - LABORATORY | | [...] + | [facility] | [address] | [place] | [phone] | | [facility] | | [address] | | | - LABORATORY | | [...] + | [facility] | [address] | [place] | [phone] | | [facility] | | [address] | | | - LABORATORY | | [...] ST. | [address] | [place], [place] | [phone] | | [facility] | | [address] | | | - LABORATORY | | [...] [address] | [place] | [phone] | | [facility] | | [address] | | | - LABORATORY | | [...] [address] | [place] | [phone] | | [facility] | | [address] | | | - LABORATORY | | [...] + | [facility] | [address] | [place] | [phone] | | [facility] | | [address] | | | - [...] ST. | [address] | [place], [place] | [phone] | | [facility] | | [address] | | | - LABORATORY | | [...] [address] | [place] | [phone] | | [facility] | | [address] | | | - LABORATORY | | [...] 3.11 (H) | 0.60 - 1.30 | [facility] | | | | | mg/dL | [facility] | | | | | | MEDICAL | | | | | | CENTER - | | | | | | LABORATORY | | + + + + + + | eGFR if not | 15 (L)Comment: | >=60 | [facility] | | | | GLOMERULAR FILTRATION | mL/min/1.73m2 | [facility] | | | VINCENTIAN | RATE,ESTIMATED | | MEDICAL | | | | mL/min/1.08a4Okea than | | CENTER - | | [...] [address] | [place] | [phone] | | [facility] | | [address] | | | - LABORATORY | | [address] | [place] | [phone] | | [facility] | | [address] | | | - LABORATORY | | [...] [address] | [place] | [phone] | | [facility] | | [address] | | | - LABORATORY | | [...] + | [facility] | [address] | [place] | [phone] | | [facility] | | [address] | | | - LABORATORY | | [...] | | | POC | | | [facility] | | | | | | [...] + | [facility] | [address] | [place] | [phone] | | [facility] | | [address] | | | - LABORATORY | | [...] [address] | [place] | [phone] | | [facility] | | [address] | | | - LABORATORY | | [...] [address] | [place] | [phone] | | [facility] | | [address] | | | - LABORATORY | | [...] | | MEDICAL | | | | mL/min/1.02j2Tfdn than | | CENTER - | | [...] [address] | [place] | [phone] | | [facility] | | [address] | | | - LABORATORY | | [...] | Basophils | | K/uL | [facility] | [...] [address] | [place] | [phone] | | [facility] | | [address] | | | - LABORATORY | | [...] [address] | [place] | [phone] | | [facility] | | [address] | | | - LABORATORY | | [...] 3.13 (H) | 0.60 - 1.30 | [facility] | | | | | mg/dL | [facility] | | | | | | MEDICAL | | | | | | CENTER - | | | | | | LABORATORY | | + + + + + + | eGFR if not | 15 (L)Comment: | >=60 | [facility] | | | | GLOMERULAR FILTRATION | mL/min/1.73m2 | [facility] | | | VINCENTIAN | RATE,ESTIMATED | | MEDICAL | | | | mL/min/1.46k4Qjxa than | | CENTER - | | [...] + | [facility] | [address] | [place] | [phone] | | [facility] | | [address] | | | - LABORATORY | | [...] ST. | [address] | [place], [place] | [phone] | | [facility] | | [address] | | | - LABORATORY | | | | + + + + + VAS Lower Extremity Venous Bilateral (10/02/2017 10:07 AM [facility]) + + | [...] 454 R | | | Patient Number [id number] Date of Study | | | 10/02/2017 Visit Number [id number] Accession | | | [id number] Referring Physician LOY RUPAL Number | | | Date of 1945 Dial Printer | | | WENDY HUDSON | | | CEASAR Age 72 year(s) | | | Interpreting CLAUDIA HUGHES MD | | | Assembler Molded Frames Gender | | | Female Nurse | | | Stress Tufting Machine Fixer Procedure Type of Study TTE procedure: [...] | 71.7 ml | | | EF Lrqcgcgyo45% Left Ventricle Diastolic Dimension: 5.37 cm | [...] Volume: 71.7 ml | | | EF Kcttehrgw84% | | | | | | Left [...] Jordan Results In - 10/02/2017 9:41 AM [facility] Transthoracic Echocardiography Report | | (TTE) Demographics Patient Name ANDRES BULLOCK Room Number 454 | | R Patient Number [id number] Date of Study 10/02/2017 Visit Number | | [id number] Referring Physician LOY MATA Number | | Date of 1945 Dial Printer WENDY BECCA | | [facility] Age 72 year(s) Interpreting | | CLAUDIA HUGHES MD Assembler Molded Frames Gender | | Female Nurse Stress TechnicianProcedureType [...] LA Volume: 71.7 ml EF | | Dfzjebbyf06% Left Ventricle Diastolic Dimension: 5.37 cm Septum [...] LA Volume: 71.7 ml | | EF Psqylruzm34% | | | | Left Ventricle | [...] [address] | [place] | [phone] | | [facility] | | [address] | | | - LABORATORY | | [...] + | [facility] | [address] | [place] | [phone] | | [facility] | | [address] | | | - LABORATORY | | [...] [address] | [place] | [phone] | | [facility] | | [address] | | | - LABORATORY | | [address] | [place] | [phone] | | [facility] | | [address] | | | - LABORATORY | | [...] | | | | | | [employer] | | | | | [...] [address] | [place] | [phone] | | [facility] | | [address] | | | - LABORATORY | | [...] ST. | [address] | [place], [place] | [phone] | | [facility] | | [address] | | | - LABORATORY | | [...] 3.03 (H) | 0.60 - 1.30 | [facility] | | | | | mg/dL | [facility] | | | | | | MEDICAL | | | | | | CENTER - | | | | | | LABORATORY | | + + + + + + | eGFR if not | 15 (L)Comment: | >=60 | [facility] | | | | GLOMERULAR FILTRATION | mL/min/1.73m2 | [facility] | | | VINCENTIAN | RATE,ESTIMATED | | MEDICAL | | | | mL/min/1.77l9Zojw than | | CENTER - | | [...] + | [facility] | [address] | [place] | [phone] | | [facility] | | [address] | | | - LABORATORY | | [...] + | [facility] | [address] | [place] | [phone] | | [facility] | | [address] | | | - LABORATORY | | [...] | | | | KEN ELLISON MD ([id number]) | | | | | | on [...] [address] | [place] | [phone] | | [facility] | | [address] | | | - LABORATORY | | [...] | | | | | | [employer] | | | | | [...] ST. | [address] | [place], [place] | [phone] | | [facility] | | [address] | | | - LABORATORY | | [address] | [place] | [phone] | | [facility] | | [address] | | | - LABORATORY | | [...] [address] | [place] | [phone] | | [facility] | | [address] | | | - LABORATORY | | [...] 7 - 18 mg/dL | [facility] | | | | | | [facility] | | | | | | MEDICAL | | | | | | CENTER - | | | | | | LABORATORY | | + + + + + + | Creatinine | 3.05 (H) | 0.60 - 1.30 | [facility] | | | | | mg/dL | [facility] | | | | | | MEDICAL | | | | | | CENTER - | | | | | | LABORATORY | | + + + + + + | eGFR if not | 15 (L)Comment: | >=60 | [facility] | | | | GLOMERULAR FILTRATION | mL/min/1.73m2 | [facility] | | | VINCENTIAN | RATE,ESTIMATED | | MEDICAL | | | | mL/min/1.91i0Jcjh than | | CENTER - | | [...] + | [facility] | [address] | [place] | [phone] | | [facility] | | [address] | | | - LABORATORY | | [...] ST. | [address] | [place] | [phone] | | [facility] | | [address] | | | - LABORATORY | | [...] | | | | First dose on [facility] 10/05/17 at 1445 | | AM PST [...] | | | | | NPO, Daytime 3527-8050 Use NIGHT | | | | | | | DOSE for doses scheduled: | | | | | | | HS, 3AM, Nighttime 6319-7782, | | | | | | + [...] First dose | | | on [facility] 10/07/17 at 0900 | | + +---+ | | | + +---+ + +-------+ +-------+---+---+ | losartan (COZAAR) tablet 50 mg | Given | 10/05/19 | 50 mg | | | | 50 mg, Oral, 2 TIMES DAILY, | | 18 8:27 | | | | | First dose on [facility] 10/03/17 at 0930 | | AM PST [...]
--- OUTSIDE RECORDS SUMMARY | ~2019-09-08 | XMS | Encounter Summary ---
Demographics + + + | Address | [address] | | | [place] [address] | + + + | Home Phone [...] + | Author | [facility] | | | and [place]itana | + + + | Organization | [facility] | | | and [place] | + + + | Address | Unknown | + + + | Phone | Unavailable | + + + Support + + + + + | Name | Relationship | Address | Phone | + + + + + | India Tilley | ECON | [address] | | | | | [place], [place] | | | | | [address] | | + + + + + | Yina La | ECON | Unknown | | + + + + + | Yina Peterson | ECON | Unknown | | + + + + + | Leatha Casillas | ECON | Unknown | | + + + + + Care Team Providers + +------+ + | Care Automotive Repair Technician Name | Role | Phone | [...] | | | ([facility]) | | | | | | | Complication | | | | | | | s, dialysis, | | | | | | | catheter, | | | | | | | mechanical, | | | | | | | initial | | | | | | | encounter | | | | | | | ([facility]) | | | | | | | [...] W/ | | | | [address] | [facility] | [place] | | 02/05/ | | [place], [place] | [place] [address] | | | 2017 | | [address] | [phone] | | | | | [phone] | | | +--------+---------+ + + + [...] Office Phone Number to Contact Dr Navarro: [phone] Navarro's Office to schedule a follow up visit as needed - you will follow up with Dr Stephenson and at the dialysis center. Our office is located in the [facility] next door to Urgent Care. Other [...] Wednesday 9:00-2:00PM. Call the General Surgery Office [phone] for the following: Persistent vomiting Diarrhea lasting [...] as possible. Limit sports and strenuous activities [id number]. Shower as usual. Gently wash around your [...] ST. | [address] | [place] | [phone] | | [facility] | | [address] | | | - LABORATORY | | [...] + | [facility] | [address] | [place] | [phone] | | [facility] | | [address] | | | - LABORATORY | | [...] 3.57 (H) | 0.60 - 1.30 | [facility] | | | | | mg/dL | [facility] | | | | | | MEDICAL | | | | | | CENTER - | | | | | | LABORATORY | | + + + + + + | eGFR if not | 13 (L)Comment: | >=60 | [facility] | | | | GLOMERULAR FILTRATION | mL/min/1.73m2 | [facility] | | | [place] | RATE,ESTIMATED | | MEDICAL | | | | mL/min/1.85y8Mjea than | | CENTER - | | [...] | [facility] | [address] | [place] | [phone] | | [facility] | | [address] | | | - LABORATORY | | [...] [address] | [place] | [phone] | | [facility] | | [address] | | | - LABORATORY | | [...] agent. | | | Ondansetron IV is welder tool and die | | | out. If patient cannot [...]
--- OUTSIDE RECORDS SUMMARY | ~2019-09-08 | XMS | Clinical Summary ---
Demographics + + + | Address | [address] | | | [place] [address] | + + + | Home Phone [...] + + | Author | [facility] (Historical as of | | | 04-29-19) | + + + | Organization | [facility] (Historical as of | | | 04-29-19) [...] Team Providers + +------+ + | Care Robotics Technician Name | Role | Phone | [...]
--- OUTSIDE RECORDS SUMMARY | ~2019-09-08 | XMS | Encounter Summary ---
Demographics + + + | Address | [address] | | | [place] [address] | + + + | Home Phone [...] | Author | [facility] | | | and Kamaljitana | + + + | Organization | [facility] | | | and [place] | + + + | Address | Unknown | + + + | Phone | Unavailable | + + + Support + + + + + | Name | Relationship | Address | Phone | + + + + + | India Tilley | ECON | [address] | | | | | [place], [place] | | | | | [address] | | + + + + + | Yina La | ECON | Unknown | | + + + + + | Yina Peterson | ECON | Unknown | | + + + + + | Leatha Casillas | ECON | Unknown | | + + + + + Care Team Providers + +------+ + | Care Furnace Hand Name | Role | Phone | + +------+ + PCP | Unavailable | + +------+ + Encounter Details +--------+ + + + + | Date | Type | Department | Care Team | Description | +--------+ + + + + | 11/08/ | [facility] | [facility] | Provider, | | | 2018 | Exam | [facility] | [address] | | | | | IMAGING | [address] | | | | | [phone] | [place] [address] | | +--------+ + + + + [...] for comparison only - no result from [facility]. | [facility] | + + + + +---------+ + + | Performing | Address | City/State/Zipcode | Phone Number | | Organization | | | | + +---------+ + + | [facility] | | | | + +---------+ + + documented in this encounter Visit Diagnoses Not on filedocumented in this encounter"
--- OUTSIDE RECORDS SUMMARY | ~2019-09-08 | XMS | Encounter Summary ---
Demographics + + + | Address | [address] | | | [place] [address] | + + + | Home Phone [...] | Author | [facility] | | | and [place]it[place] | + + + | Organization | [facility] | | | and [place] | + + + | Address | Unknown | + + + | Phone | Unavailable | + + + Support + + + + + | Name | Relationship | Address | Phone | + + + + + | India Tilley | ECON | [phone] | | | | | [place], [place] | | | | | [address] | | + + + + + | Yina La | ECON | Unknown | | + + + + + | Yina Peterson | ECON | Unknown | | + + + + + | Leatha Casillas | ECON | Unknown | | + + + + + Care Team Providers + +------+ + | Care Practical Nursing Teacher Name | Role | Phone | [...] | stage renal | MD Phone: | [address] [place] [address] | | | | | disease) | | [address] | | | | | ([facility]) | | [address] | | | | | Procedures | Fax: | JA DIAZ | | | | | SC OFFICE | | [address] Phone: | | | | | OUTPATIENT | | [phone] | | | | | VISIT 25 | | Fax: | | | | | MINUTES | | [phone] | +--------+--------+ + + + + Encounter Details +--------+ + + + + | Date | Type | Department | Care Team | Description | +--------+ + + + + | 05/11/ | Off-Site | [facility] | Gopi Muñoz | ESRD (end stage | | 2019 | Visit | NEPHROLOGY [address] | M, DO [address] | renal disease) on | | | | [address] | [place] | dialysis (HCC) | | | | [place] | [place] | (Primary Dx) | | | | [address] | [address] | | | | | [phone] | | | +--------+ + + + [...] Gopi Muñoz DO - 2019 12:00 PM [id number] sig javi by Gopi Muñoz DO at 2019 8:58 PM PDT documented in this encounter Progress Notes Gopi Muñoz DO - 2019 12:00 PM PDT Subjective: DIALYSIS NOTE Patient ID: Estefani Tilley is a 74 y.o. female. HPI Comments: I inadvertently missed Estefani on dialysis rounds at [facility] on 05/08/2019. 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 There has been a great deal of confusion about her outpatient antibiotics, and hypertension regimen, therefore, I asked her to my office today. Apparently she was discharged from [facility] on 03/31/2019 with acute low back pain, fluid collection and a diagnosis of T11-T12 verteb ral discitis/osteomyelitis. CT-guided aspiration/biopsy did not reveal an organism. Theref ore she was discharged on 03/31 on outpatient IV Vanco, 500 mg, Q. HD treatment MWF, and IV cefepime daily through 05/04/2019. I was called by the [facility] staff that there was concern w hether [...] she verball y agrees to go to [facility], [place], and picker tender helper the meds. (She does appear to a mbulate independently with only a cane for light assistance). PAST MEDICAL HISTORY: 1. ESRD 2 diabetic glomerulosclerosiswith the patient beginning Inpt HD in 018and then was DC to [facility] at [place], [place]. Unfortunat brandy, she has had intermittent [...] to write a tonight to picker tender helper her meds and that she should take the first dose in each AM prior to dialysis as well. She was A&O x3 during this discussion. I think that she understands her risk of CV disease, and stroke if she does no t take her meds. 4. Will relay the above to the charge nurse at [facility], LISA Marshall by secure text. 5. My partner, Dr. Magui Moseley will check in on her in 2 weeks at [facility]. 6. Lastly she is concerned about breakthrough pain. I agreed to give her generic Vicodin 5 mg / 325 mg, 1 tab, Q 12 Hours, #40, no refill. 7. Also, Estefani and her family would like to explore whether the [facility] or [facility] are could h elp transport her back and forth to the [facility] clinic for her treatments, thrice weekly. [place] states that financially this is becoming a hardship for her. Electronically signed by Gopi Muñoz DO. 05/11/19 11:02 CC: Blaine Jansen MD, ID, [facility], [place], [place] [facility], [place], [place]. document ed in this encounter Plan [...]
--- OUTSIDE RECORDS SUMMARY | ~2019-09-08 | XMS | Encounter Summary ---
Demographics + + + | Address | [address] | | | [place] [address] | + + + | Home Phone [...] | Author | [facility] | | | and [place] | + + + | Organization | [facility] | | | and [place] | + + + | Address | Unknown | + + + | Phone | Unavailable | + + + Support + + + + + | Name | Relationship | Address | Phone | + + + + + | India Tilley | ECON | [address] | | | | | [place], [place] | | | | | [address] | | + + + + + | Yina La | ECON | Unknown | | + + + + + | Yina Peterson | ECON | Unknown | | + + + + + | Leatha Casillas | ECON | Unknown | | + + + + + Care Team Providers + +------+ + | Care Design Director Name | Role | Phone | [...] W/ | | | | [address] | [facility] [place] | | 02/05/ | | [place], [place] | [place] [address] | | | 2017 | | [address] | [phone] | | | | | [phone] | | | +--------+---------+ + + + [...] Office Phone Number to Contact Dr Navarro: [phone] Navarro's Office to schedule a follow up visit as needed - you will follow up with Dr Stephenson and at the dialysis center. Our office is located in the [facility] next door to Urgent Care. Other [...] Wednesday 9:00-2:00PM. Call the General Surgery Office [phone] for the following: Persistent vomiting Diarrhea lasting [...] as possible. Limit sports and strenuous activities [id number]. Shower as usual. Gently wash around your [...] ST. | [address] | [place] | [phone] | | [facility] | | [address] | | | - LABORATORY | | [...] + | [address] | [address] | [place] | [phone] | | [facility] | | [address] | | | - LABORATORY | | [...] 3.57 (H) | 0.60 - 1.30 | [facility] | | | | | mg/dL | [facility] | | | | | | MEDICAL | | | | | | CENTER - | | | | | | LABORATORY | | + + + + + + | eGFR if not | 13 (L)Comment: | >=60 | [facility] | | | | GLOMERULAR FILTRATION | mL/min/1.73m2 | [facility] | | | [facility] | RATE,ESTIMATED | | MEDICAL | | | | mL/min/1.16r9Zvkg than | | CENTER - | | [...] | [address] | [address] | [place] | [phone] | | [facility] | | [address] | | | - LABORATORY | | [...] [address] | [place] | [phone] | | [facility] | | [address] | | | - LABORATORY | | [...] agent. | | | Ondansetron IV is director digital | | | out. If patient cannot [...]
--- OUTSIDE RECORDS SUMMARY | ~2019-09-08 | XMS | Encounter Summary ---
Demographics + + + | Address | [address] | | | [place] [address] | + + + | Home Phone [...] + | Author | [facility] | | | and [place] | + + + | Organization | [facility] | | | and [place] | + + + | Address | Unknown | + + + | Phone | Unavailable | + + + Support + + + + + | Name | Relationship | Address | Phone | + + + + + | India Tilley | ECON | [address] | | | | | [place], [place] | | | | | [address] | | + + + + + | Yina La | ECON | Unknown | | + + + + + | Yina Peterson | ECON | Unknown | | + + + + + | Leatha Casillas | ECON | Unknown | | + + + + + Care Team Providers + +------+ + | Care Deck Lid Fitter Name | Role | Phone | + +------+ + PCP | Unavailable | + +------+ + Encounter Details +--------+ + + + + | Date | Type | Department | Care Team | Description | +--------+ + + + + | 02/13/ | Hospital | [facility] | [facility], | | | 2007 - | Encounter | MED CTR CANC[facility] | Venkatesh Forte MD [address] | | | | | NIKOL[address] | [facility] | | | 03/12/ | | [place] | [place] [address] | | | 2007 | | [address] | [phone] | | | | | [phone] | | | +--------+ + + + [...]
--- OUTSIDE RECORDS SUMMARY | ~2019-09-08 | XMS | Encounter Summary ---
Demographics + + + | Address | [address] | | | [place] [address] | + + + | Home Phone [...] Author | [facility] | | | and [place] | + + + | Organization | [facility] | | | and [place] | + + + | Address | Unknown | + + + | Phone | Unavailable | + + + Support + + + + + | Name | Relationship | Address | Phone | + + + + + | India Tilley | ECON | [address] | | | | | [place], [place] | | | | | [address] | | + + + + + | Yina La | ECON | Unknown | | + + + + + | Yina Peterson | ECON | Unknown | | + + + + + | Leatha Casillas | ECON | Unknown | | + + + + + Care Team Providers + +------+ + | Care Shoe Repairer Name | Role | Phone | [...] | Surgery | kidney | DO [address] | , [address] | | | | | disease, | [place], [address] | [address] | | | | | stage V | [address] | [place], | | | | | ([facility]) | [place], [place] | [place] [address] | | | | | | [address] | Phone: | | | | | | Phone: | [phone] | | | | | | [phone] | Fax: | | | | | | Fax: | [phone] | | | | | | [phone] | | +--------+ + + + + + Encounter Details +--------+ + + + + | Date | Type | Department | Care Team | Description | +--------+ + + + + | 10/06/ | Orders Only | [facility] | Gopi Muñoz | Chronic kidney | | 2018 | | NEPHROLOGY [address] | M, DO [address] | disease, stage V | | | | [address] | [address] | ([facility]) (Primary Dx) | | | | [place] | [place] | | | | | [address] | [address] | | | | | [phone] | | | +--------+ + + + [...] | | | Referral | | | ([facility]) | | + + +--------+ + + [...]
--- OUTSIDE RECORDS SUMMARY | ~2019-09-08 | XMS | Encounter Summary ---
Demographics + + + | Address | [address] | | | [place] [address] | + + + | Home Phone [...] | Author | [facility] | | | and [place] | + + + | Organization | [facility] | | | and [place] | + + + | Address | Unknown | + + + | Phone | Unavailable | + + + Support + + + + + | Name | Relationship | Address | Phone | + + + + + | India Tilley | ECON | [address] | | | | | [place], [place] | | | | | [address] | | + + + + + | Yina La | ECON | Unknown | | + + + + + | Yina Peterson | ECON | Unknown | | + + + + + | Leatha Casillas | ECON | Unknown | | + + + + + Care Team Providers + +------+ + | Care Cash Sales Audit Clerk Name | Role | Phone | + +------+ + PCP | Unavailable | + +------+ + Encounter Details +--------+ + + + + | Date | Type | Department | Care Team | Description | +--------+ + + + + | 11/08/ | [facility] | [facility] | Provider, | | | 2018 | Exam | MED CTR EXTERNAL | [address] | | | | | IMAGING | [address] | | | | | [phone] | [place] [address] | | +--------+ + + + + [...] for comparison only - no result from [place]. | [facility] | + + + + +---------+ + + | Performing | Address | City/State/Zipcode | Phone Number | | Organization | | | | + +---------+ + + | [facility] | | | | + +---------+ + + documented in this encounter Visit Diagnoses Not on filedocumented in this encounter"
--- OUTSIDE RECORDS SUMMARY | ~2019-09-08 | XMS | Encounter Summary ---
Demographics + + + | Address | [address] | | | [place] [address] | + + + | Home Phone [...] | Author | [facility] | | | and [place] | + + + | Organization | [facility] | | | and [place] | + + + | Address | Unknown | + + + | Phone | Unavailable | + + + Support + + + + + | Name | Relationship | Address | Phone | + + + + + | India Tilley | ECON | [address] | | | | | [place], [place] | | | | | [address] | | + + + + + | Yina La | ECON | Unknown | | + + + + + | Yina Peterson | ECON | Unknown | | + + + + + | Leatha Casillas | ECON | Unknown | | + + + + + Care Team Providers + +------+ + | Care Sports Physician Name | Role | Phone | [...] | [address] | [place] | initial encounter | | | | [place] | [id number] | ([facility]) (Primary Dx); | | | | [address] | | Right hip pain; H/O | | | | [phone] | | major orthopedic | | | [...]
--- OUTSIDE RECORDS SUMMARY | ~2019-09-08 | XMS | Encounter Summary ---
Demographics + + + | Address | [address] | | | [place] [address] | + + + | Home Phone [...] Author | [facility] | | | and Kamaljitana | + + + | Organization | [facility] | | | and [place] | + + + | Address | Unknown | + + + | Phone | Unavailable | + + + Support + + + + + | Name | Relationship | Address | Phone | + + + + + | India Tilley | ECON | [address] | | | | | [place], [place] | | | | | [address] | | + + + + + | Yina La | ECON | Unknown | | + + + + + | Yina Peterson | ECON | Unknown | | + + + + + | Leatha Casillas | ECON | Unknown | | + + + + + Care Team Providers + +------+ + | Care Set Up Mechanic [employer] Name | Role | Phone | + [...] | | | | | site, | [place], [place] | TABITHA, [place]KTORIYA | | | | | unspecified | [address] | [address] | | | | | type ([facility]) | Phone: | Phone: | | | | | | [phone] | [phone] | | | | | | Fax: | Fax: | | | | | | [phone] | [phone] | + + + + + + [...] + + | 03/24/ | Hospital | [facility] | Erlinda Simon, | Osteomyelitis, | | 2019 - | Encounter | [facility] | MD [address] | unspecified site, | | | | NEPHROLOGY [address] | unspecified type | | 03/31/ | | [address] [place], [place] | [place] [address] | ([facility]) (Primary Dx); | | 2019 | | [address] | [phone] | Discitis of thoracic | | | | [phone] | | region; Other | | | | | Katey Hill MD | secondary | | | | | [address] | osteoarthritis of | | | | | [address] [place], | multiple sites; ESRD | | | | | [place] [address] | (end stage renal | | | | | [phone] | disease) on dialysis | | | | | | ([facility]); Essential | | | | | Michelle Lopez, | hypertension; ESRD | | | | | DO [address] | (end stage renal | | | | | [address] [place], | disease) ([facility]); Type | | | | | [place] [address] | 2 diabetes mellitus | | | | | [phone] | with stage 4 | | | | | | chronic kidney | | | | | | disease, with | | | | | | long-term current | | | | | | use of insulin ([facility]) | +--------+ + + + + [...] completion of IV abx Follow Up Appointments: [facility] [address] [facility] [address] [facility] [address] [place] [id number] [facility] [address] [facility] [address] Discharge Disposition: Home with Home Health Consultants This Admission: ID, Nephrology Hospital Course: 73-year-old female with history of ESRD on hemodialysis, hypertension, type 2 diabetes, hyp othyroidism, chronic anemia, hyperlipidemia with a history of stroke transferred from [facility] for evaluation of T11-T12 lesion noted on [...] to go to SNF ([facility] [place], [place] - of which has accepted her [...] dialysis days after dialysis Osteomyelitis/Discitis of T11, [id number] -MRI spine 03/23/19: "mild paravertebral soft tissue [...] patient - has OP clinic in [place] already Macrocytic anemia likely secondary to-likely anemia [...] Value Units Date/Time Culture, Aerobic + Anaerobic [[id number]] Collected: 03/24/191513 Order Status: Completed Lab Status: Final result Updated: 03/29/19717 Specimen: Body Fluid from Vertebra[place], Thoracic FINAL REPORT -- No Growth No anaerobes isolated Gram Stain Few Neutrophils No squamous epithelial cells seen No organisms seen Comment: Performed by [facility] [address] [place] [address] Gram Stain [[id number]] Collected: 03/24/191513 Order Status: Canceled Lab Status: No result Updated: 03/24/19 1515 Specimen: Body Fluid from Vertebrae, Thoracic Culture, AFB Smear [[id number]] Collected: 03/24/19 1514 Order Status: Completed Lab Status: Preliminary result Updated: 03/25/19 1054 Specimen: Body Fluid from Vertebrae, Thoracic AFB Smear Result No Acid Fast Bacilli Seen Comment: Performed by [facility] [address] [place] [address] Culture, Fungus, Smear [[id number]] Collected: 03/24/19 1514 Order Status: Completed Lab Status: Preliminary result Updated: 03/25/19 1039 Specimen: Body Fluid from Vertebrae, Thoracic CALCOFLUOR No fungal elements seen Comment: Performed by [facility] [address] [place] [address] [address] Culture, Blood [[id number]] Collected: 03/23/19 2333 Order Status: Completed Lab Status: Final result Updated: 03/28/19 2352 Specimen: Blood Culture No growth after 5 days incubation. Culture, Blood [[id number]] Collected: 03/23/19 2255 Order Status: Completed Lab [...] this chart may have been created with [employer] voice recognition software. Occasi onal wrong-word or [...] 03/31/2019 5:42 PM PDTPatient left with family, [facility] supplies and i nstructions received before discharge and RX's filled at outpt pharmacy. VSS, ambulating wit h SBA, A&O x4, accepting of discharge. Dialysis completed this AM. Pain controlled with q4 o xy, LD 1400. Home health will f/u tomorrow. AVS reviewed and sent with patient, verbalized u nderstanding. Merry Hess, HEMATOLOGY NURSE EDUCATOR - 03/31/2019 11:05 AM PDTSOCIAL WORK PLAN: Home with [facility] NEXT STEPS: 1. Pt to follow up with [facility] 2. [facility] to follow up with pt at nm INTERVENTION: SW spoke with [facility], pt has a $2.50 out of pocket cost weekly, pt is agreeable to pay for this. Therefore pt will dc today with [facility]. ROBIN provided [facility] with hard script for IV abx. ROBIN faxed over HH order to [facility], ROBIN faxed over IV vanco script to [facility]. [facility] notified of pt's dc home. notified. [facility] to meet with pt later this afternoon for teach. SW provided pt with 3 gas cards to assist with transportation. No further dc needs identified. SW received call from [facility] clinic that they cannot provide IV Vanco as Vanco h as not been consigned by [employer] that has privileges in [place]. IV Vanco will now be done b y Candie, [employer] faxed over hard script to [facility]. They will have both IV Abx ready and will teach pt shortly. No further dc needs identified. CONTACTS: Yina La: sister India Tilley: sister [place] Transportation: [place] Medicaid Transportation fax: [phone] [facility]: [phone] fax: [phone] [facility] [phone] [facility]: [phone] [facility]: [phone] [facility] FAX: [phone] aMichelle bell DO - 03/31/2019 10:12 AM PDT Patient: Estefani Tilley Date of : 1945 Admit Date: 03/24/2019 Date of Service: 03/31/2019 PCP: Francisca Womack PA-C Hospital Day: Hospital Day: 8 Hospital Course: 73-year-old female with history of ESRD on hemodialysis, hypertension, type 2 diabetes, hyp othyroidism, chronic anemia, hyperlipidemia with a history of stroke transferred from [facility] for evaluation of T11-T12 lesion noted on [...] had planned to go to SNF ([facility] in [place] - of which has accepted her and [...] patient - has OP clinic in [place] already Macrocytic anemia likely secondary to-likely anemia [...] hoping to arrange home IV antibiotics through [facility]. Awaiting to see if insurance will cover [...] - 99 mg/dL Final Comment: Performed by [facility] [address] [place] [address] 03/30/2019 21:14 200 (H) 65 - 99 mg/dL Final Comment: Performed by [facility] [address] [place] [address] 03/30/2019 17:46 111 (H) 65 - 99 mg/dL Final Comment: Performed by [facility] [address] [place] [address] 12/09/2018 18:05 113 (H) 70 - 109 [...] this chart may have been created with [employer] voice recognition software. Occasi onal wrong-word or sound-alike substitutions may have occurred due to the inherent mckeon itations of voice recognition software. Please read the chart carefully and recognize, using context, where these substitutions have occurred Jesus Wade MD - 03/31/2019 8:26 AM PDT . Infectious Diseases Progress Note Pt. Name/Age/: Estefani Tony Tilley 73 y.o. 1945 Med. Record Number: [id number] Date of admission: 03/24/2019 Patient admitted with [...] Electronically signed by: Jesus Whitney, 03/31/2019 8:26 [facility] Robb Pihllips PharmD - 03/31/2019 7:25 AM PDTFormatting of [...] - 03/30/2019 9:45 PM PDT [facility] INPATIENT ROUNDING NOTE Date of Service: 03/30/2019 Rounding Physician: Randy Corrigan MD Patient Name: Estefani Tilley : 1945 Medical Record: [id number] Hospital Summary: Estefani Tilley is a 73 y.o. female with a PMHx of ESRD, HTN, Dm type 2, hypothyroidism, HLd, CVA who is under the care of Dr Muñoz at [facility] who dialyzes MWF admitted with possible [...] Trace Corrigan MD, 03/30/2019, 21:45 etNan wilkes, HEMATOLOGY NURSE EDUCATOR - 03/30/2019 2:34 PM PDT SOCIAL WORK D/C PLAN:DC home with [facility] providing IV-ABX and [facility] providing picc care and lab draws vs [facility] NEXT STEPS: -SW will need to follow up with CANDIE regarding providing IV-ABX to pt. -SW will need to follow up with [facility] regarding providing picc care and lab draws. -SW will need to follow up with [facility] regarding having pt receive vanco do [...] INTERVENTION:SW spoke with pt regarding acceptance to [facility]. Pt is now wanting to go home with IV-ABX. SW spoke with [facility]. They go out to [place], [place] and have openings for nursing care. Referral faxed to [facility]. Pt is amenable to using [facility] for IV-ABX. SW spoke with CANDIE martinez who will run pt's be nefits to see if she can DC home with IV-ABX. Pt states that [facility] can provide teach to her son to help administer IV-ABX. SW left message for [facility] to see if they can provide vanco dose to pt at [facility] on Wednesday, Wednesday and Wednesday if pt is able to go home. Pt states that she does dialysis on Wednesday, Wednesday and Wednesday from 12:00-4:00. SW received phone call from [facility]. They have accepted pt for admission if [...] anemia,hyperlipidemia, hx of stroke [facility] noted on MRI concerning fo r osteomyelitis. SW met with pt's sister, Yina, and her cousin, Keri, who were waiting in pt's room while s he was in dialysis. SW will need to follow up with pt re: d/c planning. Pt's sister and cousin related that pt mostly lives at Yina's house outside [place], [place], but does not like to be tied down because she enjoys attending [place] festivals and many events. She does at [facility] weekly. Pt has a vehicle and is very independent. D/C TRANSPORT:Pt can be transported home or to [facility] via family in a private car. They will need gas cards to help pay for transportation. BARRIERS TO D/C:none CONTACTS: Yina La: sister India Tilley: sister [place] Transportation: [place] Medicaid Transportation fax: [phone] [facility]: [phone] fax: [phone] [facility] [phone] [facility]: [phone] [facility]: [phone] [facility] FAX: [phone] Nan Cheney MSW - 03/30/2019 12:57 PM PDTSOCIAL WORK D/C PLAN:[facility]: [facility] NEXT STEPS:Await bed availability INTERVENTION: ROBIN called [...] DC. Pt states that she goes to [facility] dialys is in [place], [place] on Wed, Wed, and Fridays from 12:00-4:00 pm. SW left message with [facility] dialysis regarding if there was any way that they may also be able to help with transportation to and from dialysis while pt is in rehab and to ensure that pt still has her chair time scheduled. [facility] is only open M on, Wednesday and Wednesday. ASSESSMENT/CHART REVIEW:73 yr old femalewith a history of ESRD on hemodialysis, hypertens ion, type 2 diabetes, hypothyroidism,chronic anemia,hyperlipidemia, hx of stroke transfe rred from [facility] evaluation of T11-T12 lesion noted on MRI concerning fo r osteomyelitis. SW met with pt's sister, Yina, and her cousin, Keri, who were waiting in pt's room while s he was in dialysis. SW will need to follow up with pt re: d/c planning. Pt's sister and cousin related that pt mostly lives at Yina's house outside [place], [place], but does not like to be tied down because she enjoys attending [place] festivals and many events. She does at [facility] dialysis weekly. Pt has a vehicle and is very independent. D/C TRANSPORT:tbd BARRIERS TO D/C:none CONTACTS: Yina La: sister India Tilley: sister [place] Transportation: [place] Transportation fax: [phone] [facility]: [phone] fax: [phone] [facility] [phone] [facility]: [phone] signed by JENNIFER Xavier at 03/30 1:09 [...] with a history of stroke transferred from [facility] for evaluation of T11-T12 lesion noted on [...] patient - has OP clinic in [place] already ---> will need SW to help [...] SNF - awaiting to hear back from [facility], in [place], [place] regarding possible acceptance there. Medically ready [...] Single Lumen 03/24/19 2143 Left Lateral Forearm ttpc-xwv-jaffuo daniel ter system 20 gauge;1 1/4 in [...] - 99 mg/dL Final Comment: Performed by [facility] [address] [place] [address] 03/29/2019 21:09 157 (H) 65 - 99 mg/dL Final Comment: Performed by [facility] [address] [place] [address] 03/29/2019 18:50 91 65 - 99 mg/dL Final Comment: Performed by [facility] [address] [place] [address] 12/09/2018 18:05 113 (H) 70 - 109 [...] this chart may have been created with [employer] voice recognition software. Occasi onal wrong-word or sound-alike substitutions may have occurred due to the inherent mckeon itations of voice recognition software. Please read the chart carefully and recognize, using context, where these substitutions have occurred esus Whitney MD - 03/30/2019 7:15 AM PDT . Infectious Diseases Progress Note Pt. Name/Age/: Estefani Jimenez Jarek 73 y.o. 1945 Med. Record Number: [id number] Date of admission: 03/24/2019 Patient admitted with [...] Electronically signed by: Jesus Whitney, 03/30/2019 7:15 [facility] Mary Wade RN - 03/30/2019 6:16 AM [...] [facility] Suicide Policy [facility] Suicide Risk/Telesitter Screening Utilizing this rating [...] 03/29/2019 4:18 PM PDTSOCIAL WORK D/C PLAN:SNF: [facility] NEXT STEPS:Await bed availability INTERVENTION: SW called [...] anemia,hyperlipidemia, hx of stroke [facility] noted on MRI concerning fo r osteomyelitis. SW met with pt's sister, Yina, and her cousin, Keri, who were waiting in pt's room while s he was in dialysis. SW will need to follow up with pt re: d/c planning. Pt's sister and cousin related that pt mostly lives at Yina's house outside [place], [place], but does not like to be tied down because she enjoys attending [place] festivals and many events. She does at [facility] weekly. Pt has a vehicle and is very independent. D/C TRANSPORT:tbd BARRIERS TO D/C:none CONTACTS: Yina La: sister India Tilley: sister [place] Medicaid Transportation: [facility]: [phone] fax: [phone] [facility] [phone] signed by JENNIFER Contreras at 03/29/2019 4:20 PM PDTHsu, Randy Nunez MD - 03/29/2019 12:32 PM PDT [facility] INPATIENT ROUNDING NOTE Date of Service: 03/29/2019 Rounding Physician: Randy Corrigan MD Patient Name: Estefani Tilley : 1945 Medical Record: [id number] Hospital Summary: Estefani Tilley is a 73 y.o. female with a PMHx of ESRD, HTN, Dm type 2, hypothyroidism, HLd, CVA who is under the care of Dr Muñoz at [facility] who dialyzes MWF admitted with possible [...] with a history of stroke transferred from [facility] for evaluation of T11-T12 lesion noted on [...] need three times weekly dialysis while at [facility] as well. SW to help [...] patient - has OP clinic in [place] already ---> will need SW to help [...] SNF - awaiting to hear back from [facility], in [place], [place] regarding possible acceptance there. Could possibly [...] Single Lumen 03/24/19 2143 Left Lateral Forearm evnp-fnj-frzedc daniel ter system 20 gauge;1 /4 in [...] - 99 mg/dL Final Comment: Performed by [facility] [address] [place] [address] 03/28/2019 21:06 144 (H) 65 - 99 mg/dL Final Comment: Performed by [facility] [address] [place] [address] 03/28/2019 11:22 119 (H) 65 - 99 mg/dL Final Comment: Performed by [facility] [address] [place] [address] 12/09/2018 18:05 113 (H) 70 - 109 [...] this chart may have been created with [employer] voice recognition software. Occasi onal wrong-word or [...] Jarek 73 y.o. 1945 Med. Record Number: [id number] Date of admission: 03/24/2019 Patient admitted with [...] Electronically signed by: Jesus Whitney, 03/29/2019 7:35 [facility] zech, Carolina Restrepo RN - 03/28/2019 7:08 PM [id number] - Report called to Sanjuanita GONZALEZ. Pt's belongings . I pad and I phone w/ chargers as well as pt's purse, and shoes, and shirt and pants all sent with her to [address] [place] [address]. Pt had been sitting up eating dinner. [...] for time spent with her. Noti fied [address] [place] [address] RN of pt's recent loss. Transferred at [...] with a history of stroke transferred from [facility] for evaluation of T11-T12 lesion noted on [...] Single Lumen 03/24/19 2143 Left Lateral Forearm ovbh-xkd-udoxqv daniel ter system 20 gauge;1 / in [...] - 99 mg/dL Final Comment: Performed by [place] [address] [facility] [place] [address] 03/28/2019 07:09 75 65 - 99 mg/dL Final Comment: Performed by [place] [address] [address] [facility] [place] [address] 03/27/2019 20:38 109 (H) 65 - 99 mg/dL Final Comment: Performed by [place] [address] [address] [facility] [place] [address] 12/09/2018 18:05 113 (H) 70 - 109 [...] this chart may have been created with [employer] voice recognition software. Occasi onal wrong-word or sound-alike substitutions may have occurred due to the inherent mckeon itations of voice recognition software. Please read the chart carefully and recognize, using context, where these substitutions have occurred Cordell Mcgarry LICSW - 03/28/2019 2:57 PM PDTSOCIAL WORK D/C PLAN: SNF: [facility] NEXT STEPS: Await bed availability INTERVENTION: On-going dc planning. Rec'd update from [facility]. They confirm they have r ec'd clinical notes and are currently reviewing. SW will follow. ASSESSMENT/CHART REVIEW:73 yr old femalewith a history of ESRD on hemodialysis, hypertens ion, type 2 diabetes, hypothyroidism,chronic anemia,hyperlipidemia, hx of stroke [facility] noted on MRI concerning fo r osteomyelitis. SW met with pt's sister, Yina, and her cousin, Keri, who were waiting in pt's room while s he was in dialysis. SW will need to follow up with pt re: d/c planning. Pt's sister and co in related that pt mostly lives at Yina's house outside [place], [place], but does not like to be tied down because she enjoys attending [place] festivals and many events. She does atten d dialysis weekly. Pt has a vehicle and is very independent. D/C TRANSPORT: tbd BARRIERS TO D/C: none CONTACTS: Yina La: sister India Tilley: sister [facility]: [phone] fax: [phone] [facility] [phone] Mario Alberto Gonzales MD - 03/28/2019 7:34 AM PDTFormatting of this note might be different from the maynor rollins Infectious Diseases Progress Note Pt. Name/Age/: Estefani Tilley 73 y.o. 1945 Med. Record Number: [id number] Date of admission: 03/24/2019 Patient admitted with [...] Electronically signed by: Carlos Jansen, 03/28/2019 7:34 [facility] Katey Solis MD - 03/27/2019 8:58 PM PDT Patient: Estefani Tilley Date of : 1945 Admit Date: 03/24/2019 Date of Service: 03/27/2019 PCP: Francisca Womack PA-C Hospital Day: Hospital Day: 4 Hospital Course: 73-year-old female with history of ESRD on hemodialysis, hypertension, type 2 diabetes, hyp othyroidism, chronic anemia, hyperlipidemia with a history of stroke transferred from [facility] for evaluation of T11-T12 lesion noted on MRI concerning for osteomyeliti s. Infectious disease consulted. Status post aspiration from her thoracic spine, Gram stain negative, cultures pending. Rosemary ent started on empiric vancomycin and cefepime. Will need 6 weeks of IV antibiotics. 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 Nephrology following for maintenance hemodialysis. [...] catheter instead of PICC line for senior care IV antibiotics. Pain management -trial of lidocaine [...] Single Lumen 03/24/19 2143 Left Lateral Forearm gaxu-qig-yvliql daniel ter system 20 gauge;1 1/4 in [...] - 99 mg/dL Final Comment: Performed by [facility] [address] [place] [address] 03/27/2019 13:58 82 65 - 99 mg/dL Final Comment: Performed by [facility] [address] [facility] [place] [address] 03/27/2019 06:39 83 65 - 99 mg/dL Final Comment: Performed by [facility] [address] [facility] [place] [address] 12/09/2018 18:05 113 (H) 70 - 109 [...] this chart may have been created with [employer] voice recognition software. Occasi onal wrong-word or sound-alike substitutions may have occurred due to the inherent mckeon itations of voice recognition software. Please read the chart carefully and recognize, using context, where these substitutions have occurred Darlin Mcgarry LICSW - 03/27/2019 3:17 PM PDTSOCIAL WORK D/C PLAN: SNF: [facility] NEXT STEPS: Await bed availability INTERVENTION: Rec'd call from Emili at [facility]. She states the contracted f acility near pt's home is [facility]. Spoke with pt and with sister India. Referral and (-) Pasrr sent to [facility]. Copy of Pasrr placed in light chart with request to file into jos rds. SW will follow. ASSESSMENT/CHART REVIEW:73 yr old femalewith a history of ESRD on hemodialysis, hypertens ion, type 2 diabetes, hypothyroidism,chronic anemia,hyperlipidemia, hx of stroke [facility] noted on MRI concerning fo r osteomyelitis. SW met with pt's sister, Yina, and her cousin, Keri, who were waiting in pt's room while s he was in dialysis. SW will need to follow up with pt re: d/c planning. Pt's sister and co usin related that pt mostly lives at Yina's house outside [place], [place], but does not like to be tied down because she enjoys attending [place] festivals and many events. She does atten d dialysis weekly. Pt has a vehicle and is very independent. D/C TRANSPORT: tbd BARRIERS TO D/C: none CONTACTS: Yina La: sister India Tilley: sister [facility]: [phone] fax: [phone] [place] [phone] Gregg Mcgarry [facility] - 03/27/2019 2:17 PM PDTFormatting of this note might be different from jerald posadas original. SOCIAL WORK D/C PLAN: SNF NEXT STEPS: SW to follow up with pt regarding SNF preference INTERVENTION: On-going dc planning, chart reviewed and met with pt. 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 Provided list of [...] pt mostly lives at Yina's house outside [place], [place], but does not like to be tied down because she enjoys attending [place] festivals and many events. She does atten d dialysis weekly. Pt has a vehicle and is very independent. ASSESSMENT/CHART REVIEW:73 yr old femalewith a history of ESRD on hemodialysis, hypertens ion, type 2 diabetes, hypothyroidism,chronic anemia,hyperlipidemia, hx of stroke [facility] noted on MRI concerning fo r osteomyelitis. D/C TRANSPORT: tbd BARRIERS TO D/C: none CONTACTS: Yina La Sister [phone] India Tilley Sister [phone] Irish Cadet, Chief Internal Auditor - 03/27/2019 1:33 PM PDTFormatting of this [...] mg/dL (H)). Lab Results Component Value Date/Time [facility] 17.7 03/27/2019 05:12 I/O last 3 completed shifts: In: 360 [P.O.:360] Out: 1 [Urine:1] I/O this shift: In: - Out: 2000 Micro/Cultures: BCx - NGTD, BiopsyCx - NGTD Per P&T-approved Vancomycin Protocol Electronically signed by: Aimee Carroll, Chief Internal Auditor 03/27/2019 13:33Electronically si gned by Ray Joel, PharmD at 03/27/2019 2:04 PM PDT Associated attestation - Ray Joel, PharmD - 03/27/2019 2:04 PM PDTI reviewed and agr ee with the assessment and plan. Ray Joel, PharmD 03/27/2019 14:04 Randy Corrigan MD - 03/27/2019 10:52 AM PDT [facility] INPATIENT ROUNDING NOTE Date of Service: 03/27/2019 Rounding Physician: Randy Corrigan MD Patient Name: Estefani Tilley : 1945 Medical Record: [id number] Hospital Summary: Estefani Tilley is a 73 y.o. female with a PMHx of ESRD, HTN, Dm type 2, hypothyroidism, HLd, CVA who is under the care of Dr Muñoz at [facility] who dialyzes MWF admitted with possible [...] Tilley 73 y.o. 1945 Med. Record Number: [id number] Date of admission: 03/24/2019 Patient admitted with [...] Electronically signed by: Carlos Jansen, 03/27/2019 7:10 [facility] Katey Solis MD - 03/26/2019 5:40 PM PDT Patient: Estefani Tilley Date of : 1945 Admit Date: 03/24/2019 Date of Service: 03/26/2019 PCP: Francisca Womack PA-C Hospital Day: Hospital Day: 3 Hospital Course: 73-year-old female with history of ESRD on hemodialysis, hypertension, type 2 diabetes, hyp othyroidism, chronic anemia, hyperlipidemia with a history of stroke transferred from [facility] for evaluation of T11-T12 lesion noted on [...] Single Lumen 03/24/19 2143 Left Lateral Forearm ubjg-bph-vqxzyj daniel ter system 20 gauge;1 1/4 in [...] - 99 mg/dL Final Comment: Performed by [facility] [address] [facility] [place] [address] 03/26/2019 06:49 116 (H) 65 - 99 mg/dL Final Comment: Performed by [facility] [address] [facility] [place] [address] 03/25/2019 20:37 110 (H) 65 - 99 mg/dL Final Comment: Performed by [facility] [address] [place] [address] 12/09/2018 18:05 113 (H) 70 - 109 [...] this chart may have been created with [employer] voice recognition software. Occasi onal wrong-word or [...] Vancomycin Protocol Electronically signed by: Jose Menard, Chief Internal Auditor 03/26/2019 10:52 [facility], Randy Nunez MD - 03/26/2019 1 0:38 AM PDT [facility] INPATIENT ROUNDING NOTE Date of Service: 03/26/2019 Rounding Physician: Randy Corrigan MD Patient Name: Estefani Tilley : 1945 Medical Record: [id number] Hospital Summary: Estefani Tilley is a 73 y.o. female with a PMHx of ESRD, HTN, Dm type 2, hypothyroidism, HLd, CVA who is under the care of Dr Muñoz at [facility] who dialyzes MWF admitted with possible osteo disccitis t11/t12 ASSESSMENT AND PLAN 1. ESRD/HD dependent Access is LUE AVF working well No indications for HD today Usually dialyzes MWF at [facility] Hd tommorow 2. Anemia Hg at [...] Tilley 73 y.o. 1945 Med. Record Number: [id number] Date of admission: 03/24/2019 Patient admitted with [...] Electronically signed by: Carlos Jansen, 03/26/2019 8:03 [facility] Katey Solis MD - 03/25/2019 3:50 PM PDT Patient: Estefani Tilley Date of : 1945 Admit Date: 03/24/2019 Date of Service: 03/25/2019 PCP: Francisca Womack PA-C Hospital Day: Hospital Day: 2 Hospital Course: 73-year-old female with history of ESRD on hemodialysis, hypertension, type 2 diabetes, hyp othyroidism, chronic anemia, hyperlipidemia with a history of stroke transferred from [facility] for evaluation of T11-T12 lesion noted on [...] Peripheral IV Line - Single Lumen 03/24/19 6876 Left Lateral Forearm vpoh-rxm-nrjcnm daniel ter system 20 gauge;1 1/4 in [...] - 99 mg/dL Final Comment: Performed by [facility] [address] [place] [address] 03/25/2019 06:52 107 (H) 65 - 99 mg/dL Final Comment: Performed by [facility] [address] [place] [address] 03/24/2019 20:11 112 (H) 65 - 99 mg/dL Final Comment: Performed by [facility] [address] [place] [address] 12/09/2018 18:05 113 (H) 70 - 109 [...] this chart may have been created with [employer] voice recognition software. Occasi onal wrong-word or sound-alike substitutions may have occurred due to the inherent mckeon itations of voice recognition software. Please read the chart carefully and recognize, using context, where these substitutions have occurred su, Randy Nunez MD - 0 03/25/2019 1:47 PM PDT [facility] INPATIENT ROUNDING NOTE Date of Service: 03/25/2019 Rounding Physician: Randy Corrigan MD Patient Name: Estefani Tilley : 1945 Medical Record: [id number] Hospital Summary: Estefani Tilley is a 73 y.o. female with a PMHx of ESRD, HTN, Dm type 2, hypothyroidism, HLd, CVA who is under the care of Dr Muñoz at [facility] who dialyzes MWF admitted with possible osteo disccitis t11/t12 ASSESSMENT AND PLAN 1. ESRD/HD dependent Access is LUE AVF working well No indications for HD today Usually dialyzes MWF at [facility] She is below her EDW an [...] Trace Corrigan MD, 03/25/2019, 13:47 etNan wilkes HEMATOLOGY NURSE EDUCATOR - 03/25/2019 10:49 AM PDT SOCIAL WORK [...] pt mostly lives at Yina's house outside [place], [place], but does not like to be tied down because she enjoys attending [place] festivals and many events. She does atten d dialysis weekly. Pt has a vehicle and is very independent. ASSESSMENT/CHART REVIEW:73 yr old femalewith a history of ESRD on hemodialysis, hypertens ion, type 2 diabetes, hypothyroidism,chronic anemia,hyperlipidemia, hx of stroke [facility]12 lesion noted on MRI concerning fo r osteomyelitis. D/C TRANSPORT: tbd BARRIERS TO D/C: none CONTACTS: Yina La Sister [phone] [place] Tilley Sister [phone] Carlos Gonzales M D - 03/25/2019 8:34 AM PDT Infectious Diseases Progress Note Pt. Name/Age/: Estefani Tilley 73 y.o. 1945 Med. Record Number: [id number] Date of admission: 03/24/2019 Patient admitted with [...] Electronically signed by: Carlos Jansen, 03/25/2019 8:34 [facility] Jose Gamez, Chief Internal Auditor - 03/24/2019 10:46 PM PDTFormatting of this note might be different from the origin wv. Pharmacy Progress Note VANCOMYCIN PER PHARMACY PROTOCOL: [...] Vancomycin Protocol Electronically signed by: Jose Menard, Chief Internal Auditor 03/24/2019 22:46 ladys England MSW - 9 [...] pt mostly lives at Yina's house outside [place], [place], but do es not like to be tied down because she enjoys attending [place] festivals and many events. She does attend dialysis weekly. Pt has a vehicle and is very independent. ASSESSMENT/CHART REVIEW:73 yr old female with a history of ESRD on hemodialysis, hypertensi on, type 2 diabetes, hypothyroidism, chronic anemia, hyperlipidemia, hx of stroke transferre d from [facility] for evaluation of T11-T12 lesion noted on MRI concerning for ost eomyelitis. D/C TRANSPORT: tbd BARRIERS TO D/C: none CONTACTS: Yina La Sister [phone] India Tilley Sister [phone] atey Hill MD - 03/24/2019 3:53 PM PDTPatient seen and examined. Chart reviewed. Briefly, 73-year-old female with history of ESRD on hemodialysis, hypertension, type 2 diab etes, hypothyroidism, chronic anemia, hyperlipidemia with a history of stroke transferred fr [facility] for evaluation of T11-T12 lesion noted on [...] not have any p raza, consider antidepressants. group worker consulted for concerns for housing concerns [...] 1250 mg IV once given 03/23 @ 5884 at [facility]. 2. [employer] Trough: 15-20 mcg/ml [...] Procedure Component Value Units Date/Time Culture, Blood [[id number]] Collected: 03/23/192332 Order Status: Sent Lab Status: In process Updated: 03/23/192348 Specimen: Blood Culture, Blood [[id number]] Collected: 03/23/192254 Order Status: Sent Lab Status: [...] PROVIDEJOSE AE | | | POC | [facility] [address], | | SACRED | | | | [place] [address] | | HEART | | | |Performed by [facility] [address], [place], [place] | | MEDICAL | | | [...] SACRED | [address] | [place] | | | [facility] [...] | PROVIDENCE | | | POC | [facility] [address], | | SACRED | | | | [place] [address] | | HEART | | | |Performed by [facility] [address], [place] [address] | | MEDICAL | | | | [...] + + | JIMRENUKA LIZ | [address] | [place] [address] | | | [facility] | | | | [...] | | LABORATORY | | | | [facility] [address], | | [place] | | | | [place] [address] | | | | + + + + + + + + | Specimen | + + | Blood specimen | | (specimen) | + + + + + + + | Performing | Address | City/State/Zipcode | Phone Number | | Organization | | | | + + + + + | [facility]ED | [address] | [place] [address] | | | [facility] | | | | [...] | | | | | | DENNY EFRGUSON | | | | | | [place] [...] ENCE | | | Immature | by [facility] [address], | K/uL | SACRED | | | Granulocyte | [place] [address] | | HEART | | | s |Performed by [facility] [address], [place] [address] | | MEDICA L | | | [...] + + | [facility] | [address] | [place] [address] | | | [facility] | | | | [...] by | | | | | | [facility] [address], | | | | | | [place] [address] | | | | + + + + + + + + | Specimen | + + | Blood specimen | | (specimen) | + + + + + + + | Performing | Address | City/State/Zipcode | Phone Number | | Organization | | | | + + + + + | BETH LIZ | [address] | [place] [address] | | | [facility] | | | | [...] | | | POC | Performed by [facility] [address] | | SACRED | | | | [address] [place] | | HEART | | | | [address] | | MEDICAL | | | | [...] + | PROVIDEJOSE AE SA[facility]ANS | [address] | [place] [address] | | | [facility] | | | | [...] | | | POC | Performed by [facility] [address] | | SACRED | | | | [address], [place] | | HEART | | | | [address] | | MEDICAL | | | | [...] + + | BETH LIZ | [address] | [place] [address] | | | [facility] | | | | [...] | | | POC | Performed by [facility] [address] | | SACRED | | | | [address] [place] | | HEART | | | | [address] | | MEDICAL | | | | [...] + + | RIMAE SACREVANS | [address] | [place] [address] | | | [facility] | | | | [...] | | | POC | Performed by [facility] [address] | | SACRED | | | | [address], [place] | | HEART | | | | [address] | | MEDICAL | | | [...] + | BETH LIZ | [address] | [place] [address] | | | [facility] | | | | [...] PROVIDE NCE | | | | by [facility] [address], | | SACRED | | | | [place] [address] | | HEART | | | |Performed by [facility] [address], [place] [address] | | MEDICAL | | | | [...] + + | BETH LIZ | [address] | [place] [address] | | | [facility] | | | | [...] LUIS CE | | | | by [facility] [address], | | SACRED | | | | [place] [address] | | HEART | | | |Performed by [facility] [address], [place] [address] | | MEDICAL | | | | [...] + | [facility] | [address] | [place] [address] | | | [facility]ENTER | [...] | | LABORATORY | | | | [facility] [address], | | [place] | | | | [place] [address] | | | | + + + + + + + + | Specimen | + + | Blood specimen | | (specimen) | + + + + + + + | Performing | Address | City/State/Zipcode | Phone Number | | Organization | | | | + + + + + | B[facility] | [address] | [place] [address] | | | [facility] | | | | [...] ENCE | | | Counted | by [place] [address], | | SACRED | | | | [place] [address] | | HEART | | | |Performed by [facility] [address], [place] [address] | | MEDICA L | | | [...] [address] | [place] [address] | | | [facility] | | | | [...] | | | POC | Performed by [facility] [address] | | SACRED | | | | [address], [place] | | HEART | | | | [address] | | MEDICAL | | | | [...] [address] | [place] [address] | | | HEART [facility] | | | | | [...] | [facility] | | | POC | [facility] [address], | | SACRED | | | | [place] [address] | | HEART | | | |Performed by [facility] [address], [place] [address] | | MEDICAL | | | | [...] + | JIMRENUKA LIZ | [address] | [place] [address] | | | [facility] | | | | [...] | | | POC | Performed by [facility] [address] | | SACRED | | | | [address] [place] | | HEART | | | | [address] | | MEDICAL | | | | [...] + | [facility] | [address] | [place] | | | [facility] [...] | PROVIDENCE | | | POC | [facility] [address], | | SACRED | | | | [place] | | HEART | | | |Performed by [facility] [address], [place] | | MEDICAL | | | [...] + + | BETH LIZ | [address] | [place] [address] | | | [facility] | | | | [...] by | | | | | | [facility] [address], | | | | | | [place] [address] | | | | + + + + + + + + | Specimen | + + | Blood specimen | | (specimen) | + + + + + + + | Performing | Address | City/State/Zipcode | Phone Number | | Organization | | | | + + + + + | BETH LIZ | [address] | [place] [address] | | | [facility] | | | | [...] ENCE | | | Counted | by [place] [address], | | SACRED | | | | [place] [address] | | HEART | | | |Performed by [facility] [address], [place] [address] | | MEDICA L | | | [...] | JIMJOSE ADora LIZ | [address] | [place] [address] | | | [facility] | | | | [...] PROVIDEN CE | | | | by [facility] [address], | | SACRED | | | | [place] | | HEART | | | |Performed by [facility] [address], [place] | | MEDICAL | | | [...] + | PROVIDEJOSE AE SACRED | [address] | [place] | | | [facility]ENTER [...] | | LABORATORY | | | | [facility] [address], | | CERNER | | | | [place] [address] | | | | + + + + + + + + | Specimen | + + | Blood specimen | | (specimen) | + + + + + + + | Performing | Address | City/State/Zipcode | Phone Number | | Organization | | | | + + + + + | BETH [facility]Z | [address] | [place] [address] | | | [facility] | | | | [...] | | | POC | Performed by [facility] [address] | | SACREVANS | | | | [address], [place] | | HEART | | | | [address] | | MEDICAL | | | | [...] + | PROVIDEJOSE AE SA[facility]ANS | [address] | [place] [address] | | | [facility] | [...] + + | Performing | Address | City/State/[facility] | Phone Number | | [...] | | | POC | Performed by [facility] [address] | | SACRED | | | | [address] [place] | | HEART | | | | [address] | | MEDICAL | | | | [...] | + + + + + | PROVIDEOJSE AE SACRED | [address] | [place] | | | [facility] | | | | [...] | PROVIDENCE | | | POC | [facility] [address], | | SACRED | | | | [place] | | HEART | | | |Performed by [facility] [address], [place] [address] | | MEDICAL | | | | [...] + | BETH LIZ | [address] | [place] [address] | | | [facility] | [...] | | LABORATORY | | | | [facility] [address], | | [place]ERNER | | | | [place] [address] | | | | + + + + + + + + | Specimen | + + | Blood specimen | | (specimen) | + + + + + + + | Performing | Address | City/State/Zipcode | Phone Number | | Organization | | | | + + + + + | BETH [facility] | [address] | [place] [address] | | | [facility] | [...] PROVIDE NCE | | | | by [facility] [address], | | SACRED | | | | [place] [address] | | HEART | | | |Performed by [facility] [address], [place] [address] | | MEDICAL | | | | [...] [address] | [place] [address] | | | [facility] | | | | [...] | | | POC | Performed by [facility] [address] | | SACRED | | | | [address], [place] | | HEART | | | | [address] | | MEDICAL | | | | [...] + | JIMJOSE ADora AGUSTO | [address] | [place] [address] | | | [facility] | | | | [...] | | | POC | Performed by [facility] [address] | | SACRED | | | | [address] [place] | | HEART | | | | [address] | | MEDICAL | | | | [...] [address] | [place] [address] | | | [facility] | | | | [...] AGUSTO | | | | [place] [address] | | HEART | | | |Performed by [facility] [address], [place] [address] | | MEDICAL | | | | [...] + + | BETH LIZ | [address] | [place], [place] | | | [facility] [...] | PROVIDENCE | | | POC | [facility] [address], | | SACRED | | | | [place] [address] | | HEART | | | |Performed by [facility] [address], [place] [address] | | MEDICAL | | | | [...] | JIMJOSE ADora LIZ | [address] | [place] [address] | | | [facility] | | | | [...] by | | | | | | [facility] [address], | | | | | | [place] [address] | | | | + + + + + + + + | Specimen | + + | Blood specimen | | (specimen) | + + + + + + + | Performing | Address | City/State/Zipcode | Phone Number | | Organization | | | | + + + + + | PROVIDEJOSE AE [facility] | [address] | [place] [address] | | | [facility] | | | | [...] | | | POC | Performed by [facility] [address] | | SACRED | | | | [address], [place] | | HEART | | | | [address] | | MEDICAL | | | | [...] + | BETH LIZ | [address] | [place] [address] | | | [facility] | | | | [...] | | | POC | Performed by [facility] [address] | | SACRED | | | | [address] [place] | | HEART | | | | [address] | | MEDICAL | | | | [...] [address] | [place] [address] | | | [facility] | | | | [...] | | | POC | Performed by [facility] [address] | | SACRED | | | | [address], [place] | | HEART | | | | [address] | | MEDICAL | | | | [...] + + | BETH LIZ | [address] | [place] [address] | | | [facility] | [...] PROVIDENCE | | | | Performed by [facility] [address] | | SACRED | | | | [address] [place] | | HEART | | | | [address] | | MEDICAL | | | | [...] [address] | [place] [address] | | | [facility] | | | | [...] | | | POC | Performed by [facility] [address] | | SACRED | | | | [address], [place] | | HEART | | | | [address] | | MEDICAL | | | | [...] + + | BETH LIZ | [address] | [place] [address] | | | HEART [facility] | | | | | [...] by | | | | | | [facility] [address], | | | | | | [place] [address] | | | | + + + + + + + + | Specimen | + + | Blood specimen | | (specimen) | + + + + + + + | Performing | Address | City/State/Zipcode | Phone Number | | Organization | | | | + + + + + | JIMRENUKA LIZ | [address] | [place] [address] | | | [facility] | | | | [...] | | LABORATORY | | | | [facility] [address] | | [place] | | | | [place] [address] | | | | + + + + + + + + | Specimen | + + | Blood specimen | | (specimen) | + + + + + + + | Performing | Address | City/State/Zipcode | Phone Number | | Organization | | | | + + + + + | BETH [facility] | [address] | [place] [address] | | | [facility] | | | | [...] PROVIDE NCE | | | | by [facility] [address], | | SACRED | | | | [place] [address] | | HEART | | | |Performed by [facility] [address], [place] [address] | | MEDICAL | | | | [...] + | BETH LIZ | [address] | [place] [address] | | | [facility] | | | | | YANY [...] CE | | | B-12 | by [facility] [address], | | SACRED | | | | [place] [address] | | HEART | | | |Performed by [facility] [address], [place] | | MEDICAL | | | [...] + + | BETH SACREVANS | [address] | [place] | | | [facility] [...] by | | | | | | [facility] [address], | | | | | | [place] [address] | | | | + + + + + + + + | Specimen | + + | Blood specimen | | (specimen) | + + + + + + + | Performing | Address | City/State/Zipcode | Phone Number | | Organization | | | | + + + + + | BETH [facility] | [address] | [place] [address] | | | [facility] | | | | [...] | | | POC | Performed by [facility] [address] | | SACRED | | | | [address] [place] | | HEART | | | | [address] | | MEDICAL | | | | [...] + | BETH LIZ | [address] | [place] [address] | | | [facility] | | | | [...] | | | POC | Performed by [facility] [address] | | SACRED | | | | [address], [place] | | HEART | | | | [address] | | MEDICAL | | | | [...] + | BETH LIZ | [address] | [place] [address] | | | [facility] | | | | [...] | | | POC | Performed by [facility] [address] | | SACRED | | | | [address] [place] | | HEART | | | | [address] | | MEDICAL | | | | [...] + | B[facility] LIZ | [address] | [place] [address] | | | [facility] | [...] PROVIDE NCE | | | | by [facility] [address], | | SACRED | | | | [place] [address] | | HEART | | | |Performed by [facility] [address] [address], [place] [address] | | MEDICAL | | | | [...] + + | BETH LIZ | [address] | [place] | | | [facility] | | | | [...] LUIS CE | | | | by [facility] [address], | | AGUSTO | | | | [place] | | HEART | | | |Performed by [facility] [address], [place] [address] | | MEDICAL | | | | [...] + | BETH LIZ | [address] [place] | [place] [address] | | | [facility] | [...] | | LABORATORY | | | | [facility] [address] [facility] [address], | | CERNER | | | | [place] [address] | | | | + + + + + + + + | Specimen | + + | Blood specimen | | (specimen) | + + + + + + + | Performing | Address | City/State/Zipcode | Phone Number | | Organization | | | | + + + + + | BETH LIZ | [address] | [place] [address] | | | [facility] | | | | [...] | | | POC | Performed by [facility] [address] | | SACRED | | | | [address] [place] | | HEART | | | | [address] | | MEDICAL | | | | [...] + | PROVIDE[facility]SE [facility] | [address] | [place] [address] | | | [facility] | | | | [...] | | | POC | Performed by [facility] [address] | | SACRED | | | | [address], [place] | | HEART | | | | [address] | | MEDICAL | | | | [...] + | BETH LIZ | [address] | [place] [address] | | | [facility] | | | | [...] | SACRED | | | Total | [id number] | | HEART | | | | [address] [place], [place] | | MEDICAL | | | | [phone] Daniel | | CENTER | | | | L Ph:[phone] | | LABORATORY | | | | [...] + | BETH LIZ | [address] | [place] [address] | | | [facility] | | | | [...] | SACRED | | | | by [facility] [address], | | HEART | | | | [place] [address] | | MEDICAL | | | | [...] [address] | [place] [address] | | | [facility] | | | | [...] | SACRED | | | | by [facility] [address], | | HEART | | | | [place] [address] | | MEDICAL | | | | [...] + | BETH LIZ | [address] | [place] [address] | | | HEART [facility] | | | | | [...] | MEDICAL | | | | by [facility] [address], | | CENTER | | | | [place] [address] | | LABORATORY | | | |Performed by [facility] [address], [place] [address] | | CERNER | | | | [...] + | BETH LIZ | [address] | [place] [address] | | | [facility] | | | | [...] | | | POC | Performed by [facility] [address] | | SACREVANS | | | | [place] | | HEART | | | | [address] | | MEDICAL | | | | [...] + | BETH LIZ | [address] | [place] [address] | | | [facility] | | | | [...] | | | POC | Performed by [facility] [address] | | SACRED | | [...] [address] | [place] [address] | | | HEART [facility] | | | | | [...] CENTER | | | | 3.5Performed by [facility] [address] | | LABORATORY | | | | [address], [place] | | [place] | | | | [address] | | | | + + + + + + + + | Specimen | + + | Blood specimen | | (specimen) | + + + + + + + | Performing | Address | City/State/Zipcode | Phone Number | | Organization | | | | + + + + + | BETH LIZ | [address] | [place] [address] | | | [facility] | | | | [...] | | | Immature | Performed by [facility] [address] | K/uL | SACRED | | | Granulocyte | [place] | | HEART | | | s | [phone] | | MEDICAL | | | | [...] + + | BETH LIZ | [address] | [place] [address] | | | [facility] | | | | [...] | | LABORATORY | | | | [facility] [address], | | [place] | | | | [place] [address] | | | | + + + + + + + + | Specimen | + + | Blood specimen | | (specimen) | + + + + + + + | Performing | Address | City/State/Zipcode | Phone Number | | Organization | | | | + + + + + | BETH LIZ | [address] | [place] [address] | | | [facility] | | | | [...] | | | | First dose on [facility] 03/30/19 at 1130 | | AM [...] | | | | First dose on [facility] 03/30/19 at 2100 | | PM [...] scheduled: AC, NPO, Daytime | | | 5012-0487 Use NIGHT DOSE for | | | doses scheduled: HS, 3AM, | | | Nighttime 0991-1269 If the BG is | | | [...] | | | | | | | Wheeler 10/325 if ordered., | | | | [...]
--- OUTSIDE RECORDS SUMMARY | ~2019-09-08 | XMS | Encounter Summary ---
Demographics + + + | Address | [address] | | | [place] [address] | + + + | Home Phone [...] + | Author | [facility] | | | and [place] | + + + | Organization | [facility] | | | and [place] | + + + | Address | Unknown | + + + | Phone | Unavailable | + + + Support + + + + + | Name | Relationship | Address | Phone | + + + + + | India Tilley | ECON | [address] | | | | | [place], [place] | | | | | [address] | | + + + + + | Yina La | ECON | Unknown | | + + + + + | Yina Peterson | ECON | Unknown | | + + + + + | Leatha Casillas | ECON | Unknown | | + + + + + Care Team Providers + +------+ + | Care Instructor Pilot Name | Role | Phone | + +------+ + PCP | Unavailable | + +------+ + Encounter Details +--------+ + + + + | Date | Type | Department | Care Team | Description | +--------+ + + + + | 05/18/ | Orders Only | [facility] | Fabiana Miller, | | | 2018 | | INFECTIOUS DISEASE | Nick Apodaca MD | | | | | [address] | [address] | | | | | [place], [place] | [place] [address] | | | | | [address] | [phone] | | | | | [phone] | | | +--------+ + + + [...] | | REFERENCE | | | | [facility];[address] [facility] | | LAB | | | | Blvd;[place] | | [facility] | | | | [address]Cfatugr: Testing | | LABORATORY | | | | performed at [facility], [address] | | | | | | [facility], | | | | | | [place] [address] | | | | + + + + + + + + | Specimen | + + | | + + + + + + + | Performing | Address | City/State/Zipcode | Phone Number | | Organization | | | | + + + + + | REFERENCE LAB | [address] [place] [address] | [place] [address] | [phone] | | [facility] | Blvd. | | | | LABORATORY | | | | + + + + + | REFERENCE LAB | [address] [place] [address] | [place] [address] | | | [facility] | Blvd. | | | | LABORATORY | | | | + + + + + documented in this encounter Visit Diagnoses Not on filedocumented in this encounter"
--- OUTSIDE RECORDS SUMMARY | ~2019-09-08 | XMS | Encounter Summary ---
Demographics + + + | Address | [address] | | | [place] [address] | + + + | Home Phone [...] Author | [facility] | | | and [place] | + + + | Organization | [facility] | | | and [place] | + + + | Address | Unknown | + + + | Phone | Unavailable | + + + Support + + + + + | Name | Relationship | Address | Phone | + + + + + | India Tilley | ECON | [address] | | | | | [place], [place] | | | | | [address] | | + + + + + | Yina La | ECON | Unknown | | + + + + + | Yina Peterson | ECON | Unknown | | + + + + + | Leatha Casillas | ECON | Unknown | | + + + + + Care Team Providers + +------+ + | Care Lubrication Worker Name | Role | Phone | + +------+ + PCP | Unavailable | + +------+ + Encounter Details +--------+ + + + + | Date | Type | Department | Care Team | Description | +--------+ + + + + | 01/04/ | Hospital | [facility] | Santos Stephenson | Decreased glomerular | | 2018 | Encounter | MED CTR OR INTRA OP | MD Kinga, FACS [address] | filtration rate | | | | [address] | [facility] | (GFR) | | | | [place], [place] | [place] [address] | | | | | [address] | [phone] | | | | | [phone] | | | +--------+ + + + [...] what medicines and drugsyou take. This includes gapn-wxj-ahg nter medicines, herbs, supplements, alcohol or other [...] ke ep you safe. Date Last Reviewed: 08/13/201619999828-9007 [employer]. [address] [place] [address]. All righ ts reserved. This information is not intended as a substitute for professional medical care. Always follow your healthcare professional's instructions. [facility] POST-OP INSTRUCTIONS: Arterio-Venous Fistula 1. Keep the [...] | | | | | PDT | ([facility]) (N18.5) | | + +--------+ [...] [address] | [place] | [phone] | | [facility] | | [address] | | | - LABORATORY | | [...] + | [facility] | [address] | [place] | [phone] | | [facility] | | [address] | | | - LABORATORY | | [...] [address] | [place] | [phone] | | [facility] | | [address] | | | - LABORATORY | | [...] + | [facility] | [address] | [place] | [phone] | | [facility] | | [address] | | | - LABORATORY | | [...] | mL/min/1.73m2 | NERISSA | | | JAPANESE | RATE,ESTIMATED | | MEDICAL | | | | mL/min/1.34e1Vncp than | | CENTER - | | [...] [address] | [place] | [phone] | | [facility] | | [address] | | | - LABORATORY | | [...]
--- OUTSIDE RECORDS SUMMARY | ~2019-09-08 | XMS | Encounter Summary ---
Demographics + + + | Address | [address] | | | [place] [address] | + + + | Home Phone [...] | [facility] | | | and [place] | + + + | Organization | [facility] | | | and [place] | + + + | Address | Unknown | + + + | Phone | Unavailable | + + + Support + + + + + | Name | Relationship | Address | Phone | + + + + + | India Tilley | ECON | [address] | | | | | [place], [place] | | | | | [address] | | + + + + + | Yina La | ECON | Unknown | | + + + + + | Yina Peterson | ECON | Unknown | | + + + + + | Leatha Casillas | ECON | Unknown | | + + + + + Care Team Providers + +------+ + | Care Hemodialysis Charge Nurse Name | Role | Phone | + +------+ + PCP | Unavailable | + +------+ + Encounter Details +--------+ + + + + | Date | Type | Department | Care Team | Description | +--------+ + + + + | 04/10/ | Hospital | [facility] | Patricia, | | | 2006 - | Encounter | MED CTR CANCER | Venkatesh Forte MD [address] | | | | | [place] [address] | [facility] | | | 04/12/ | | [place], [place] | [place] [address] | | | 2006 | | [address] | [phone] | | | | | [phone] | | | +--------+ + + + [...]
--- OUTSIDE RECORDS SUMMARY | ~2019-09-08 | XMS | Encounter Summary ---
Demographics + + + | Address | [address] | | | [place] [address] | + + + | Home Phone [...] | Author | [facility] | | | and [place] | + + + | Organization | [facility] | | | and [place] | + + + | Address | Unknown | + + + | Phone | Unavailable | + + + Support + + + + + | Name | Relationship | Address | Phone | + + + + + | India Tilley | ECON | [address] | | | | | [place], [place] | | | | | [address] | | + + + + + | Yina La | ECON | Unknown | | + + + + + | Yina Peterson | ECON | Unknown | | + + + + + | Leatha Casillas | ECON | Unknown | | + + + + + Care Team Providers + +------+ + | Care General Assembler Installer Name | Role | Phone | [...] | | | | renal | PA-C [address] | [address] [place] [address] | | | | | disease | | [place] | | | | | ([facility]) | CONFEDERATED | [address] | | | | | Procedures | WAY | [place] | | | | | [place] OFFICE | [place], | [address] Phone: | | | | | OUTPATIENT | [place] [address] | [phone] | | | | | VISIT 25 | Phone: | Fax: | | | | | MINUTES [place] | [phone] | [phone] | | | | | ESRD RELATED | Fax: | | | | | | SVC MONTHLY | [phone] | | | | | | 20&/> YR | | | | | | | OLD 4/> | | | | | | | VISITS | | | +--------+--------+ + + + + Encounter Details +--------+ + + + + | Date | Type | Department | Care Team | Description | +--------+ + + + + | 08/22/ | Off-Site | [facility] | Gopi Muñoz | End stage renal | | 2018 | Visit | NEPHROLOGY [address] | M, DO [address] [place] | disease (HCC) | | | | [address] | [place], [address] | (Primary Dx) | | | | [place], [place] | [place], [place] | | | | | [address] | [address] | | | | | [phone] | | | +--------+ + + + [...]
--- OUTSIDE RECORDS SUMMARY | ~2019-09-08 | XMS | Encounter Summary ---
Demographics + + + | Address | [address] | | | [place] [address] | + + + | Home Phone [...] | Author | [facility] | | | and Kamal[place]it[place] | + + + | Organization | [facility] | | | and [place] | + + + | Address | Unknown | + + + | Phone | Unavailable | + + + Support + + + + + | Name | Relationship | Address | Phone | + + + + + | India Tilley | ECON | [address] | | | | | [place], [place] | | | | | [address] | | + + + + + | Yina La | ECON | Unknown | | + + + + + | Yina Peterson | ECON | Unknown | | + + + + + | Leatha Casillas | ECON | Unknown | | + + + + + Care Team Providers + +------+ + | Care Painter Drum Name | Role | Phone | + [...] | | | | [place] | [address] | | | | | [address] | | | | | | [phone] | | | +--------+ + + + [...]
--- OUTSIDE RECORDS SUMMARY | ~2019-09-08 | XMS | Encounter Summary ---
Demographics + + + | Address | [address] | | | [place] [address] | + + + | Home Phone [...] | [facility] | | | and [place] | + + + | Organization | [facility] | | | and [place] | + + + | Address | Unknown | + + + | Phone | Unavailable | + + + Support + + + + + | Name | Relationship | Address | Phone | + + + + + | India Tilley | ECON | [address] | | | | | [place], [place] | | | | | [address] | | + + + + + | Yina La | ECON | Unknown | | + + + + + | Yina Peterson | ECON | Unknown | | + + + + + | Leatha Casillas | ECON | Unknown | | + + + + + Care Team Providers + +------+ + | Care Bottom Hoop Driver Name | Role | Phone | [...] | [address] | [address], [place] | | | | | [place] | [address] [place] | | | | | [address] | [address] | | | | | [phone] | | | +--------+ + + + [...] PDTOutside record: Renal ultrasound, dos: 03/29/17. From [facility]. Sent to scan.Electronically signed by Tatiana Rendon at 03/29 4:46 PM PDTdocumented in this encounter Plan of Treatment Not on filedocumented as of this encounter Visit Diagnoses Not on filedocumented in this encounter"
--- OUTSIDE RECORDS SUMMARY | ~2019-09-08 | XMS | Encounter Summary ---
Demographics + + + | Address | [address] | | | [place] [address] | + + + | Home Phone [...] Author | [facility] | | | and [place] | + + + | Organization | [facility] | | | and [place] | + + + | Address | Unknown | + + + | Phone | Unavailable | + + + Support + + + + + | Name | Relationship | Address | Phone | + + + + + | India Tilley | ECON | [address] | | | | | [place], [place] | | | | | [address] | | + + + + + | Yina La | ECON | Unknown | | + + + + + | Yina Peterson | ECON | Unknown | | + + + + + | eLatha Casillas | ECON | Unknown | | + + + + + Care Team Providers + +------+ + | Care Flakeboard Line Tender Name | Role | Phone | + +------+ + PCP | Unavailable | + +------+ + Encounter Details +--------+ + + + + | Date | Type | Department | Care Team | Description | +--------+ + + + + | 11/08/ | [facility] | Provider, | | | 2018 | Exam | MED CTR EXTERNAL | MD [address] | | | | | IMAGING | [address] | | | | | [phone] | [place] [address] | | +--------+ + + + + [...] for comparison only - no result from [place]. | [facility] | + + + + +---------+ + + | Performing | Address | City/State/Zipcode | Phone Number | | Organization | | | | + +---------+ + + | [facility] | | | | + +---------+ + + documented in this encounter Visit Diagnoses Not on filedocumented in this encounter"
--- OUTSIDE RECORDS SUMMARY | ~2019-09-08 | XMS | Encounter Summary ---
Demographics + + + | Address | [address] | | | [place] [address] | + + + | Home Phone [...] Author | [facility] | | | and [place] | + + + | Organization | [facility] | | | and [place] | + + + | Address | Unknown | + + + | Phone | Unavailable | + + + Support + + + + + | Name | Relationship | Address | Phone | + + + + + | India Tilley | ECON | [address] | | | | | [place], [place] | | | | | [address] | | + + + + + | Yina La | ECON | Unknown | | + + + + + | Yina Peterson | ECON | Unknown | | + + + + + | Leatha Casillas | ECON | Unknown | | + + + + + Care Team Providers + +------+ + | Care Geoscientist Name | Role | Phone | + +------+ + PCP | Unavailable | + +------+ + Encounter Details +--------+ + + + + | Date | Type | Department | Care Team | Description | +--------+ + + + + | 06/19/ | Telephone | [facility] | Ibis Arriola | | | 2019 | | [facility] | L, RN | | | | | [address] | | | | | | [place] | | | | | | [address] | | | | | | [phone] | | | +--------+ + + + [...]
--- OUTSIDE RECORDS SUMMARY | ~2019-09-08 | XMS | Encounter Summary ---
Demographics + + + | Address | [address] | | | [place] [address] | + + + | Home Phone [...] [facility] | | | and [place] | + + + | Organization | [facility] | | | and [place] | + + + | Address | Unknown | + + + | Phone | Unavailable | + + + Support + + + + + | Name | Relationship | Address | Phone | + + + + + | India Tilley | ECON | [address] | | | | | [place], [place] | | | | | [address] | | + + + + + | Yina La | ECON | Unknown | | + + + + + | Yina Peterson | ECON | Unknown | | + + + + + | Leatha Casillas | ECON | Unknown | | + + + + + Care Team Providers + +------+ + | Care Child And Family Therapist Name | Role | Phone | + +------+ + PCP | Unavailable | + +------+ + Encounter Details +--------+ + + + + | Date | Type | Department | Care Team | Description | +--------+ + + + + | 02/13/ | Hospital | [facility] | [facility], | | | 2007 - | Encounter | MED CTR CANCER | Venkatesh Forte MD [address] | | | | | [place] [address] | [facility] | | | 03/12/ | | [place], [place] | [place] [address] | | | 2007 | | [address] | [phone] | | | | | [phone] | | | +--------+ + + + [...]
--- OUTSIDE RECORDS SUMMARY | ~2019-09-08 | XMS | Encounter Summary ---
Demographics + + + | Address | [address] | | | [place] [address] | + + + | Home Phone [...] + | Author | [facility] | | | and [place] | + + + | Organization | [facility] | | | and [place] | + + + | Address | Unknown | + + + | Phone | Unavailable | + + + Support + + + + + | Name | Relationship | Address | Phone | + + + + + | India Tilley | ECON | [address] | | | | | [place], [place] | | | | | [address] | | + + + + + | Yina La | ECON | Unknown | | + + + + + | Yina Peterson | ECON | Unknown | | + + + + + | Leatha Casillas | ECON | Unknown | | + + + + + Care Team Providers + +------+ + | Care Recharger Name | Role | Phone | + [...] + + | 04/03/ | Telephone | [place] | Michelle Lopez | Hospital Follow-up | | 2019 | | Internal Medicine | DO Brandon [address] | | | | | Hospitalists [address] | | | | | [address] [place] | [place] [address] | | | | | [address] | [phone] | | | | | [phone] | | | +--------+ + + + [...]
--- OUTSIDE RECORDS SUMMARY | ~2019-09-08 | XMS | Encounter Summary ---
Demographics + + + | Address | [address] | | | [place] [address] | + + + | Home Phone [...] Author | [facility] | | | and [place] | + + + | Organization | [facility] | | | and [place] | + + + | Address | Unknown | + + + | Phone | Unavailable | + + + Support + + + + + | Name | Relationship | Address | Phone | + + + + + | India Tilley | ECON | [address] | | | | | [place], [place] | | | | | [address] | | + + + + + | Yina La | ECON | Unknown | | + + + + + | Yina Peterson | ECON | Unknown | | + + + + + | Leatha Casillas | ECON | Unknown | | + + + + + Care Team Providers + +------+ + | Care Tool Setter Apprentice Name | Role | Phone | [...] + + | 01/05/ | Office | [facility] | Scott Koroma, | Closed fracture of | | 2019 | Visit | ORTHOPEDIC SURGERY | MD [address] [facility] | neck of right femur, | | | | [address] | [place] | initial encounter | | | | [place], [place] | [address] | (HCC) (Primary Dx); | | | | [address] | | Right hip pain | | | | [phone] | | | +--------+---------+ + + + [...]
--- OUTSIDE RECORDS SUMMARY | ~2019-09-08 | XMS | Encounter Summary ---
Demographics + + + | Address | [address] | | | [place] [address] | + + + | Home Phone [...] Author | [facility] | | | and [place] | + + + | Organization | [facility] | | | and [place] | + + + | Address | Unknown | + + + | Phone | Unavailable | + + + Support + + + + + | Name | Relationship | Address | Phone | + + + + + | India Tilley | ECON | [address] | | | | | [place], [place] | | | | | [address] | | + + + + + | Yina La | ECON | Unknown | | + + + + + | Yina Peterson | ECON | Unknown | | + + + + + | Leatha Casillas | ECON | Unknown | | + + + + + Care Team Providers + +------+ + | Care Assembly Supervisor Name | Role | Phone | + +------+ + PCP | Unavailable | + +------+ + Encounter Details +--------+ + + + + | Date | Type | Department | Care Team | Description | +--------+ + + + + | 10/21/ | Abstract | [facility] | Santos Stephenson | | | 2018 | | SURGERY [address] | MD Kinga, FACS [address] | | | | | [address] [place], [place] | [facility] [facility] | | | | | [address] | [place] [address] | | | | | [phone] | [phone] | | | | | | | [...]
--- OUTSIDE RECORDS SUMMARY | ~2019-09-08 | XMS | Encounter Summary ---
Demographics + + + | Address | [address] | | | [place] [address] | + + + | Home Phone [...] Author | [facility] | | | and [place] | + + + | Organization | [facility] | | | and [place] | + + + | Address | Unknown | + + + | Phone | Unavailable | + + + Support + + + + + | Name | Relationship | Address | Phone | + + + + + | India Tilley | ECON | [id number] | | | | | [place], [place] | | | | | [address] | | + + + + + | Yina La | ECON | Unknown | | + + + + + | Yina Peterson | ECON | Unknown | | + + + + + | Leatha Casillas | ECON | Unknown | | + + + + + Care Team Providers + +------+ + | Care Fast Food Attendant Name | Role | Phone | [...] | Surgery | kidney | DO [address] | [address] | | | | | disease, | [place], [place] | [address] | | | | | stage V | [address] | [place], | | | | | ([facility]) | [facility], [place] | [place] [address] | | | | | | [address] | Phone: | | | | | | Phone: | [phone] | | | | | | [phone] | Fax: | | | | | | Fax: | [phone] | | | | | | [phone] | | +--------+ + + + + + Encounter Details +--------+---------+ + + + | Date | Type | Department | Care Team | Description | +--------+---------+ + + + | 01/10/ | Office | [facility] | Santos Stephenson | Chronic kidney | | 2018 | Visit | SURGERY [address] | MD Glenn FACS [address] | disease, stage V | | | | [place], [place] | [address] | (HCC) (Primary Dx); | | | | [address] | [place] [address] | Post-operative state | | | | [phone] | [phone] | | | | | | | [...] Placement; Surgeon: Nora Leo MD; Location : [facility] MAIN OR VEIN SURGERY Right 01/04/2018 Procedure: Right Transposed Basilic Vein to Proximal Radial Artery; Surgeon: Santos Stephenson MD, FACS; Location: [facility] MAIN OR Allergies Allergen Reactions Lisinopril [...] + | Chronic kidney disease, stage V ([facility]) - Primary Chronic kidney disease, Stage V | + + | Post-operative state Other postprocedural status | + + documented in this encounter
--- OUTSIDE RECORDS SUMMARY | ~2019-09-08 | XMS | Encounter Summary ---
Demographics + + + | Address | [address] | | | [place] [address] | + + + | Home Phone [...] Author | [facility] | | | and [place] | + + + | Organization | [facility] | | | and [place] | + + + | Address | Unknown | + + + | Phone | Unavailable | + + + Support + + + + + | Name | Relationship | Address | Phone | + + + + + | India Tilley | ECON | [id number] | | | | | [place], [place] | | | | | [address] | | + + + + + | Yina La | ECON | Unknown | | + + + + + | Yina Peterson | ECON | Unknown | | + + + + + | Leatha Casillas | ECON | Unknown | | + + + + + Care Team Providers + +------+ + | Care Patrol Community Service Officer Name | Role | Phone | [...] | Surgery | kidney | DO [address] | [address] | | | | | disease, | [place], [place] | [address] | | | | | stage V | [address] | [place], | | | | | ([facility]) | [place] | [place] [address] | | | | | | [address] | Phone: | | | | | | Phone: | [phone] | | | | | | [phone] | Fax: | | | | | | Fax: | [phone] | | | | | | [phone] | | +--------+ + + + + + Encounter Details +--------+---------+ + + + | Date | Type | Department | Care Team | Description | +--------+---------+ + + + | 04/04/ | Office | [facility] | Santos Stephenson | Chronic kidney | | 2018 | Visit | SURGERY [address] | MD Kinga, FACS [address] | disease, stage V | | | | [place], [place] | [address] [facility] | (HCC) (Primary Dx) | | | | [address] | [place] [address] | | | | | [phone] | [phone] | | | | | | | [...] Placement; Surgeon: Nora Leo MD; Location : [facility] MAIN OR SHUNT PLACEMENT/INSERTION Right 02/04/2018 Procedure: INSERTION SHUNT HEMODIALYSIS W/ PERMACATH; Surgeon: Heather Navarro MD; L ocation: [facility] MAIN OR VEIN SURGERY Right 01/04/2018 Procedure: Right Transposed Basilic Vein to Proximal Radial Artery; Surgeon: Santos Stephenson MD, FACS; Location: [facility] MAIN OR Allergies Allergen Reactions Lisinopril [...] can shower tomorrow. Patient to follow with well logging mud analysis captain and primary care. I will be available [...]
--- OUTSIDE RECORDS SUMMARY | ~2019-09-08 | XMS | Encounter Summary ---
Demographics + + + | Address | [address] | | | [place] [address] | + + + | Home Phone [...] | Author | [facility] | | | and Kamaljitana | + + + | Organization | [facility] | | | and [place] | + + + | Address | Unknown | + + + | Phone | Unavailable | + + + Support + + + + + | Name | Relationship | Address | Phone | + + + + + | India Tilley | ECON | [address] | | | | | [place], [place] | | | | | [address] | | + + + + + | Yina La | ECON | Unknown | | + + + + + | Yina Peterson | ECON | Unknown | | + + + + + | Leatha Casillas | ECON | Unknown | | + + + + + Care Team Providers + +------+ + | Care Manager Ui Name | Role | Phone | + [...] Hemodialysis | | | | [address] | [place] [address] | Catheter Placement | | | | [place], [place] | [phone] | | | | | [address] | | | | | | [phone] | | | +--------+---------+ + + + [...] might be differ ent from the original. [place] HOSPITALIST DISCHARGE SUMMARY Pt. Name/Age/: Estefani [...] insulin glargine 100 units/mL injection (vial) aka: [facility] COURSE: Please refer to the H&P for full details and the most recent rounding rounding (progress) n ote. In short this is a 72-year-old woman, history of hypertension, diabetes mellitus type 2 on insulin, chronic kidney disease of stage V, CAD, who presented to [facility] after be ing found down in [...] evaluation. At time of arrival to [facility], patient was feeling much better and [...] n/a DISPOSITION AND DISCHARGE INSTRUCTIONS: Follow-up Information [facility] [place] On 11/10/2017. Why: 1:00pm Contact information: [address] [place] [id number] Follow up In 3 days. Francisca Womack PA-C In 3 days. Specialty: Internal Medicine Contact information: [address] [place] [address] Hemodialysis In 1 day. Contact information: Appointment at 1:30 PM Condition: Patient being discharged with condition improved and stable Diet: renal, carbohydrate controlled Greater than 30 minutes were spent on discharge and coordination of post-hospital care. Electronically signed by: Mayelin Vega MD, 11/09/2017 11:[address] [facility] Portions of this chart may have been created with [employer] voice recognition software. Occasi onal wrong-word or sound-alike substitutions may have occurred due to the inherent mckeon itations of voice recognition software. Please read the chart carefully and recognize, using context, where these substitutions have occurred documented in this encounter Discharge Instructions AttachmentsThe following attachments cannot be sent through Care Everywhere.Balancing Calci um and Phosphorus, Kidney Disease (Finnish)Hemodialysis (Finnish)documented in this encounte r Medications at Time [...] Muñoz, DO - 11/09/2017 6:18 PM PST [facility] [address] [place] [address] PROGRESS NOTE Pt. Name/Age/: Estefani Tilley 72 y.o. 1945 Med. Record Number: [id number] Date of admission: 11/01/2017 NEPHROLOGY HPI - [...] 3. Complete 10 days total of AB's. [facility] Nora Headley MD - 11/09/2017 [...] and she agreed. Nikki was raised in [place] and in [place], [place]. She has two brothers and two sisters, and h ad 4 children of her own. Her oldest child, daughter, two months ago. Nikki is gri eving her loss and teared up while talking about her. Her other children live in [facility] and one son has been in long term for 23 years. She hasn't seen him since he was arr ested and is hopeful she will get to see him next year, as he is schedule to be released at that time. 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 She has at least 4 ye ars post high school education and studied journalism. In the years prior to [facility], she worked at [employer]. Nikki's mother had chronic kidney disease and [...] up and going [place] [facility] [place]. She must plan it out, and that feels antithetical to her nature. Ginger escamilla was present and attentive while she discussed her grief around losing her family member s and her lifestyle, offered supportive corporate travel counselor. Chayo Ramirez RN - 11/09/2017 10:00 AM Cam RN arrived at [facility]'s room around 0800 to begin dialysis. [...] note might be different from the [facility] [place] [facility] PROGRESS NOTE Patient: Estefani Tilley : 1945: Age: 72 y.o. MedRec: [id number] Admission date: 11/01/2017 Hospital day # : [...] mg/m L 0.25 mg [employer] [facility] Quantitative Software Engineer Nora Leo MD [NOV Hold] labetalol (NORMODYNE) [...] chloride 0.9% (NS) infusion Intravenous Continuous Vinnie Lsat MD 50 mL/hr a t 11/08/17 1104 [...] nephrology recs -Nephro rec permacath needed for exterminator helper dialysis -continue ferrlecit and Epogen 3. [...] might be different f rom the original. [facility] [place] HOSPITALIST PROGRESS NOTE Patient: Estefani Tilley : 1945: Age: 72 y.o. MedRec: [id number] Admission date: 11/01/2017 Hospital day # : [...] Procedure Component Value Units Date/Time Culture, Blood [[id number]] (Normal) Collected: 11/04/172121 Order Status: Completed Lab Status: Preliminary result Updated: 11/05/17 09 Specimen: Blood from Line Culture No growth: Monitored continually by instrument for 5 days Culture, Blood [[id number]] (Normal) Collected: 11/04/172102 Order Status: Completed Lab [...] Wednesday to determine if permacath needed for exterminator helper dialysis -continue ferrlecit and Epogen 3. [...] might be different from the maynor rollins [facility] NEPHROLOGY progress note Patient: Estefani Tilley : [...] Darlin Moseley MD Electronically signed: 11/07/2017 9:43 [facility] NEPHROLOGY Olegario Keen M D - 11/06/2017 2:15 PM PST [facility] [place] HOSPITALIST PROGRESS NOTE Patient: Estefani Tilley : 1945: Age: 72 y.o. MedRec: [id number] Admission date: 11/01/2017 Hospital day # : [...] Weller bcutaneous 4x Daily WC and HS nAibal Malik MD 2 Units at 11/04/17 1709 [...] Procedure Component Value Units Date/Time Culture, Blood [[id number]] (Normal) Collected: 11/04/172121 Order Status: Completed Lab Status: Preliminary result Updated: 11/05/17930 Specimen: Blood from Line Culture No growth: Monitored continually by instrument for 5 days Culture, Blood [[id number]] (Normal) Collected: 11/04/172102 Order Status: Completed Lab Status: Preliminary result Updated: 11/05/17 09 Specimen: Blood from Line Culture No growth: Monitored continually by instrument for 5 days Culture, Blood [[id number]] (Normal) Collected: 11/03/17 1506 Order Status: Completed [...] M D - 11/06/2017 9:10 AM PST [facility] NEPHROLOGY progress note Patient: Estefani Tilley : [...] Darlin Moseley MD Electronically signed: 11/06/2017 9:11 [facility] NEPHROLOGY Olegario Keen M D - 11/05/2017 2:08 PM PST [facility] [place] HOSPITALIST PROGRESS NOTE Patient: Estefani Tilley : 1945: Age: 72 y.o. MedRec: [id number] Admission date: 11/01/2017 Hospital day # : [...] 0-6 Units Subc utaneous Q2H PRN Haris Seagl MD levoFLOXacin (LEVAQUIN) tablet 750 mg 750 [...] Procedure Component Value Units Date/Time Culture, Blood [[id number]] (Normal) Collected: 11/04/172 Order Status: Completed Lab Status: Preliminary result Updated: 11/05/17 0931 Specimen: Blood from Line Culture No growth: Monitored continually by instrument for 5 days Culture, Blood [[id number]] (Normal) Collected: 11/04/17 2103 Order Status: Completed Lab Status: Preliminary result Updated: 11/05/17 0911 Specimen: Blood from Line Culture No growth: Monitored continually by instrument for 5 days Culture, Blood [[id number]] (Normal) Collected: 11/03/17 1506 Order Status: Completed Lab Status: Preliminary result Updated: 11/04/17 0311 Specimen: Blood from Peripheral Blood Culture No growth: Monitored continually by instrument for 5 days Culture, Blood [[id number]] (Abnormal) Collected: 11/03/17 0812 Order Status: Completed Lab Status: Preliminary result Updated: 11/05/17 0751 Specimen: Blood from Arm, Left Culture Positive Blood Culture (AA) Staphylococcus coagulase negative Comment: Identification and susceptibility to follow. Probable contaminant Gram Stain Result Gram positive cocci in clusters Comment: 2 of 4 bottles positive Culture, Respiratory, Lower, Smear [[id number]] Collected: 11/03/17 0727 Order Status: Completed Lab [...] M D - 11/05/2017 1:53 PM PST [facility] NEPHROLOGY progress note Patient: Estefani Tilley : [...] Darlin Moseley MD Electronically signed: 11/05/2017 13:53 [facility] NEPHROLOGY tGopi rick , DO - 11/04/2017 6:53 PM PST [facility] [address] [place], [place] [id number] PROGRESS NOTE Pt. Name/Age/: Estefani Tilley 72 y.o. 1945 Med. Record Number: [id number] Date of admission: 11/01/2017 NEPHROLOGY HPI - [...] to high Inpt case load here at [facility]. 2. probable pyelonephritis?--Day #3 Ceftriaxone, [...] for coverage of both organisms, Q 48H. [facility] Queenie Hall RN - 11/04/2017 10:23 AM PSTPatient transferred from ICU into room 307. Oriented to room an d call light. Bed alarm set. Call light in place. Remains on 2L via nasal canula. Makes need s known. Amanda Keen MD - 11/04/2017 7:21 AM PSTFormatting of this note might be different from the origin al. [facility] [place] HOSPITALIST PROGRESS NOTE Patient: Estefani Tilley : 1945: Age: 72 y.o. MedRec: [id number] Admission date: 11/01/2017 Hospital day # : [...] Procedure Component Value Units Date/Time Culture, Blood [[id number]] (Normal) Collected: 11/03/17 1506 Order Status: Completed Lab Status: Preliminary result Updated: 11/04/17 0311 Specimen: Blood from Peripheral Blood Culture No growth: Monitored continually by instrument for 5 days Culture, Blood [[id number]] (Normal) Collected: 11/03/17 0812 Order Status: Completed Lab Status: Preliminary result Updated: 11/03/17 2041 Specimen: Blood from Arm, Left Culture No growth: Monitored continually by instrument for 5 days Culture, Respiratory, Lower, Smear [[id number]] Collected: 11/03/17 0727 Order Status: Completed Lab Status: Preliminary result Updated: 11/03/17 1028 Specimen: Respiratory from Sputum, expectorated Gram Stain Result 3+ White Blood Cells 2+ Epithelial cells 2+ Gram positive cocci 2+ Gram positive bacilli 1+ Hyphael elements Influenza A and B RNA, NAAT [[id number]] (Normal) Collected: 11/02/17 1050 Order Status: Completed Lab Status: Final result Updated: 11/02/17 1125 Specimen: Respiratory from Nares Influenza A PCR Negative Influenza B PCR Negative Culture, Urine [[id number]] Collected: 11/02/17 0740 Order Status: Completed Lab Status: Preliminary result Updated: 11/03/17 1013 Specimen: Urine Culture >100,000 CFU/ml Lactose Fermenting Gram Negative Bacilli Comment: Identification and susceptibility to follow. Culture, Blood [[id number]] (Normal) Collected: 11/02/17 0024 Order Status: Completed Lab Status: Preliminary result Updated: 11/02/17 1241 Specimen: Blood from Peripheral Blood Culture No growth: Monitored continually by instrument for 5 days Culture, Blood [[id number]] (Abnormal) Collected: 11/02/17 0019 Order Status: Completed [...] 15:14 by Edison Short. Narrative: Culture, MRSA [[id number]] Collected: 11/01/172145 Order Status: Completed Lab Status: [...] in chains -Repeat UA (+), urine culture >639558 GNB lactose fermenting -Continue ceftriaxone started 11/02, [...] 0.9% 250 mL Intravenous Q30 Min PRN lOegario Peng 11/04/2017 7:21 [facility] Nick Aguillon, RN - 0 11/04/2017 1:06 AM PSTDialysis treatment started and Arterial pressures running in the -400s , trouble shooting ineffective, arterial and venous lines switched, pressures now -50s. Shama sarabia is running appropriately at this moment, will continue monitoring. Nick Guallpa Gopi Mckenna DO - 11/03/2017 11:20 AM PST [facility] [address] [place] [address] PROGRESS NOTE Pt. Name/Age/: Estefani Tilley 72 y.o. 1945 Med. Record Number: [id number] Date of admission: 11/01/2017 NEPHROLOGY HPI - [...] anemia. 4. Encourage ambulation to minimize atelectasis. [facility] Olegario Keen MD - 11/03/2017 7:07 AM PST [facility] [place] HOSPITALIST PROGRESS NOTE Patient: Estefani Tilley : 1945: Age: 72 y.o. MedRec: [id number] Admission date: 11/01/2017 Hospital day # : [...] PH UA 6.0 5.0 - 8.0 Specific [place] 1.010 1.001 - 1.030 PROTEIN UA 100 [...] Date/Time Influenza A and B RNA, NAAT [[id number]] (Normal) Collected: 11/02/17 1050 Order Status: Completed Lab Status: Final result Updated: 11/02/17 1125 Specimen: Respiratory from Nares Influenza A PCR Negative Influenza B PCR Negative Culture, Urine [[id number]] Collected: 11/02/17 0740 Order Status: Sent Lab Status: In process Updated: 11/02/17 0758 Specimen: Urine Culture, Blood [[id number]] (Normal) Collected: 11/02/17 0024 Order Status: Completed Lab Status: Preliminary result Updated: 11/02/17 1241 Specimen: Blood from Peripheral Blood Culture No growth: Monitored continually by instrument for 5 days Culture, Blood [[id number]] (Abnormal) Collected: 11/02/17 0019 Order Status: Completed Lab Status: Preliminary result Updated: 11/02/17 1515 Specimen: Blood from Peripheral Blood Culture Positive Blood Culture (AA) Gram Stain Result Gram positive cocci in chains Comment: One of four Blood Culture bottles POSITIVE. Critical Result called to and read b ack by Kristen Irving on 11/02/2017 at 15:14 by Edison Short. 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 as: Atorvastatin 20mg 1 tab by mouth nightly 1 tab by mouth every morning Calcium- vitamin d 600-400mg 1 tab by mouth twice daily 1 tab by mouth every morning Duloxetine 30mg DR 1 capsule by mouth daily Patient has not started this medication [employer]OR EMPLOYEE COMMUNICATIONS, cortés s not filled at pharmacy [id number] 200mg by mouth twice daily 200mg by mouth every morning labetalol 200mg 1 tab by mouth twice daily Patient has not started this medication 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 MedRec: [id number] Admission date: 11/01/2017 Hospital day # : [...] Nightly Rupal Laguna MD 20 mg at 7617 bisacodyl (DULCOLAX) suppository 10 mg 10 mg [...] mg 4 mg Intravenous Q6H PRN Rupal aLguna MD pantoprazole (PROTONIX) DR tablet 40 mg [...] Procedure Component Value Units Date/Time Culture, Blood [[id number]] Collected: 11/02/1723 Order Status: Sent Lab Status: In process Updated: 11/02/1732 Specimen: Blood from Peripheral Blood Culture, Blood [[id number]] Collected: 11/02/1718 Order Status: Sent Lab Status: In process Updated: 11/02/1732 Specimen: Blood from Peripheral Blood Culture, MRSA [[id number]] Collected: 11/01/172145 Order Status: Sent Lab Status: [...] | | [place]ATH | | PST | ([facility]) | | + +--------+ + [...] [address] | [place] | [phone] | | [facility] | | [address] | | | - LABORATORY | | [...] [address] | [place] | [phone] | | [facility] | | [address] | | | - LABORATORY | | [...] [address] | [place] | [phone] | | [facility] | | [address] | | | - LABORATORY | | [...] 2.99 (H) | 0.60 - 1.30 | [facility] | | | | | mg/dL | [facility] | | | | | | MEDICAL | | | | | | CENTER - | | | | | | LABORATORY | | + + + + + + | eGFR if not | 15 (L)Comment: | >=60 | [facility] | | | | GLOMERULAR FILTRATION | mL/min/1.73m2 | [facility] | | | [place] | RATE,ESTIMATED | | MEDICAL | | | | mL/min/1.62u1Hlxo than | | CENTER - | | [...] [address] | [place] | [phone] | | [facility] | | [address] | | | - LABORATORY | | [...] + | [facility] | [address] | [place] | [phone] | | [facility] | | [address] | | | - LABORATORY | | [...] [address] | [place] | [phone] | | [facility] | | [address] | | | - LABORATORY | | [...] | | | | mg/dL | [facility] | | | | [...] [address] | [place] | [phone] | | [facility] | | [address] | | | - LABORATORY | | [...] + | [facility] | [address] | [place] | [phone] | | [facility] | | [address] | | | - LABORATORY | | [...] [address] | [place] | [phone] | | [facility] | | [address] | | | - LABORATORY | | [...] + | [facility] | [address] | [place] | [phone] | | [facility] | | [address] | | | - LABORATORY | | [...] mL/min/1.73m2 | [facility] | | | [place] | RATE,ESTIMATED | | MEDICAL | | | | mL/min/1.88b3Wzbk than | | CENTER - | | [...] ST. | [address] | [place] | [phone] | | [facility] | | [address] | | | - LABORATORY | | [...] [address] | [place] | [phone] | | [facility] | | [address] | | | [...] | [facility] | [address] | [place] | [phone] | | [facility] | | [address] | | | - LABORATORY | | [...] [address] | [place] | [phone] | | [facility] | | [address] | | | - LABORATORY | | [...] + + + + + | [facility] | [address] | [place] | [phone] | | [facility] | | [address] | | | - LABORATORY | | [...] + | [facility] | [address] | [place] | [phone] | | [facility] | | [address] | | | - LABORATORY | | [...] + | [facility] | [address] | [place] | [phone] | | [facility] | | [address] | | | - LABORATORY | | [...] ST. | [address] | [place] | [phone] | | [facility] | | [address] | | | - LABORATORY | | [...] | Basophils | | K/uL | [facility] | | | | [...] [address] | [place] | [phone] | | [facility] | | [address] | | | - LABORATORY | | [...] (H) | 7 - 18 mg/dL | [facility] | | | | | | [facility] | | | | | | MEDICAL | | | | | | CENTER - | | | | | | LABORATORY | | + + + + + + | Creatinine | 2.24 (H) | 0.60 - 1.30 | [facility] | | | | | mg/dL | [facility] | | | | | | MEDICAL | | | | | | CENTER - | | | | | | LABORATORY | | + + + + + + | eGFR if not | 22 (L)Comment: | >=60 | [facility] | | | | GLOMERULAR FILTRATION | mL/min/1.73m2 | [facility] | | | [place] | RATE,ESTIMATED | | MEDICAL | | | | mL/min/1.97m6Awrh than | | CENTER - | | [...] + | [facility] | [address] | [place] | [phone] | | [facility] | | [address] | | | - LABORATORY | | [...] [address] | [place] | [phone] | | [facility] | | [address] | | | - LABORATORY | | [...] [address] | [place] | [phone] | | [facility] | | [address] | | | - LABORATORY | | [...] + | [facility] | [address] | [place] | [phone] | | [facility] | | [address] | | | - LABORATORY | | [...] [address] | [place] | [phone] | | [facility] | | [address] | | | - LABORATORY | | [...] [address] | [place] | [phone] | | [facility] | | [address] | | | - LABORATORY | | [...] [address] | [place] | [phone] | | [facility] | | [address] | | | - LABORATORY | | [...] [address] | [place] | [phone] | | [facility] | | [address] | | | [...] mL/min/1.73m2 | [facility] | | | [place] | RATE,ESTIMATED | | MEDICAL | | | | mL/min/1.23b2Qscr than | | CENTER - | | [...] [address] | [place] | [phone] | | [facility] | | [address] | | | - LABORATORY | | [...] [address] | [place] | [phone] | | [facility] | | [address] | | | - LABORATORY | | [...] | [facility] | [address] | [place] | [phone] | | [facility] | | [address] | | | - LABORATORY | | [...] [address] | [place] | [phone] | | [facility] | | [address] | | | - LABORATORY | | [...] Patient Name ANDRES | | | [facility] Room Number 307 EMILE | | | Patient Number [id number] Date of Study | | | 11/05/2017 Visit Number [id number] | | | Referring Physician AUDI ANDRADE Number Date of | | | 1945 Box Sealing Machine Catcher Jasbir Gatica | | | Age 72 year(s) Interpreting | | | GENIE WARREN | | | Radar Air Traffic Controller CHAYO | | | SHERRIE RADFORD | | | | | | Gender Female Nurse | | | Stress Credit Review Analyst | | | Procedure Type of Study [...] valve cusps without reducedexcursion.Tricuspid | | | OoncrMikb-yw-ebqialvs tricuspid regurgitation suggestive of a mildly | [...] | | | EF | | | Stqsbmffr67% Left Ventricle Diastolic Dimension: 4.77 cm Septum [...] |excursion. | | |Tricuspid Valve | | |Bmoa-ma-dfanfvvt tricuspid regurgitation suggestive of a mildly elevated [...] Volume: 60.67 ml | | | EF Rhnbonmbs52% | | | | | | Left [...] Report | | (TTE) Demographics Patient Name [facility] Room Number 307 | | EMILE Patient Number [id number] Date of Study 11/05/2017 Visit Number | | [id number] Referring Physician AUDI ANDRADE | | Number Date of 1945 Box Sealing Machine Catcher Jasbir Gatica Age | | 72 year(s) Interpreting GENIE WARREN | | Radar Air Traffic Controller CHAYO | | SHERRIE RADFORD MD Gender [...] aortic valve cusps | | without reducedexcursion.Tricuspid RgijwYxfp-dl-oiulbiyr tricuspid regurgitation | | suggestive of a [...] LA Volume: 60.67 ml | | EF Aunehkfoh65% Left Ventricle Diastolic Dimension: 4.77 | | [...] reduced | |excursion. | |Tricuspid Valve | |Lifw-uu-oefetxus tricuspid regurgitation suggestive of a mildly elevated [...] LA Volume: 60.67 ml | | EF Htvcebcqd66% | | | | Left Ventricle | [...] [address] | [place] | [phone] | | [facility] | | [address] | | | - LABORATORY | | [...] [address] | [place] | [phone] | | [facility] | | [address] | | | - LABORATORY | | [...] [address] | [place] | [phone] | | [facility] | | [address] | | | - LABORATORY | | [...] [address] | [place] | [phone] | | [facility] | | [address] | | | - LABORATORY | | [...] + | [facility] | [address] | [place] | [phone] | | [facility] | | [address] | | | - LABORATORY | | [...] mL/min/1.73m2 | [facility] | | | [place] | RATE,ESTIMATED | | MEDICAL | | | | mL/min/1.59d7Luwg than | | CENTER - | | [...] + | [facility] | [address] | [place] | [phone] | | [facility] | | [address] | | | - LABORATORY | | [...] [address] | [place] | [phone] | | [facility] | | [address] | | | - LABORATORY | | [...] + | [facility] | [address] | [place] | [phone] | | [facility] | | [address] | | | - LABORATORY | | [...] [address] | [place] | [phone] | | [facility] | | [address] | | | - LABORATORY | | [...] [address] | [place] | [phone] | | [facility] | | [address] | | | - LABORATORY | | [...] [address] | [place] | [phone] | | [facility] | | [address] | | | - LABORATORY | | [...] ST. | [address] | [place] | [phone] | | [facility] | | [address] | | | - LABORATORY | | [...] [address] | [place] | [phone] | | [facility] | | [address] | | | - LABORATORY | | [...] JIMMIDora | | | | | | [facility] | | | | [...] + | [facility] | [address] | [place] | [phone] | | [facility] | | [address] | | | - LABORATORY | | [...] ST. | [address] | [place], [place] | [phone] | | [facility] | | [address] | | | - LABORATORY | | [...] | | GLOMERULAR FILTRATION | mL/min/1.73m2 | [facility] | | | MALTESE | RATE,ESTIMATED | | MEDICAL | | | | mL/min/1.46i4Ylmf than | | CENTER - | | [...] | | | | | mg/dL | [facility] | | | | [...] [address] | [place] | [phone] | | [facility] | | [address] | | | - LABORATORY | | [...] [address] | [place] | [phone] | | [facility] | | [address] | | | - LABORATORY | | [...] + | [address] [facility] | [address] | [place] | [phone] | | [facility] | | [address] | | | - LABORATORY | | [...] [address] | [place] | [phone] | | [facility] | | [address] | | | - LABORATORY | | [...] [address] | [place] | [phone] | | [facility] | | [address] | | | - LABORATORY | | [...] [address] | [place] | [phone] | | [facility] | | [address] | | | - LABORATORY | | [...] | | | POC | | | [facility] | | | | [...] + | [facility] | [address] | [place] | [phone] | | [facility] | | [address] | | | - LABORATORY | | [...] | | POC | | | STMarianela NEIRSSA | | | | | | [...] ST. | [address] | [place] | [phone] | | [facility] | | [address] | | | - LABORATORY | | [...] [address] | [place] | [phone] | | [facility] | | [address] | | | - LABORATORY | | [...] + | [address] | [address] | [place], [place] | [phone] | | [facility] | | [address] | | | - LABORATORY | | [...] + | [facility] | [address] | [place] | [phone] | | [facility] | | [address] | | | - LABORATORY | | [...] + | [facility] | [address] | [place] | [phone] | | [facility] | | [address] | | | - LABORATORY | | [...] [address] | [place] | [phone] | | [facility] | | [address] | | | - LABORATORY | | [...] Performed at: 01 - [facility] [place] [address], | REFERENCE LAB | | [place], [place] [address] Supervisor Porcelain Department: Ernie Lee MD, Phone: | ABBEY - TETE | | [phone] | | + + + + + + + + | Performing | Address | City/State/Zipcode | Phone Number | | Organization | | | | + + + + + | REFERENCE LAB | [address] | [place] [address] | [phone] | | [facility] | [address] [...] [address] | [place] | [phone] | | [facility] | | [address] | | | - LABORATORY | | [...] + | [facility] | [address] | [place] | [phone] | | [facility] | | [address] | | | - LABORATORY | | [...] [address] | [place] | [phone] | | [facility] | | [address] | | | - LABORATORY | | [...] test | | | | | | ([id number]). | | | | + + + + + + + + | Specimen | + + | Blood | + + + + + | Narrative | Performed At | + + + | Performed at: - [place] [address], | REFERENCE LAB | | [place], [place] [address] Supervisor Porcelain Department: Ernie Lee MD, Phone: | ABBEY - TETE | | [phone] | | + + + + + + + + | Performing | Address | City/State/Zipcode | Phone Number | | Organization | | | | + + + + + | REFERENCE LAB | [address] | [place] [address] | [phone] | | [facility] | Drive [...] mL/min/1.73m2 | [facility] | | | MALTESE | RATE,ESTIMATED | | MEDICAL | | | | mL/min/1.57h5Oqog than | | CENTER - | | [...] [address] | [place] | [phone] | | [facility] | | [address] | | | - LABORATORY | | [...] | [address] | [address] | [place] | [phone] | | [facility] | | [address] | | | - LABORATORY | | [...] + | [facility] | [address] | [place] | [phone] | | [facility] | | [address] | | | - LABORATORY | | [...] | | POC | | | STMarianela [facility] [...] [address] | [place] | [phone] | | [facility] | | [address] | | | - LABORATORY | | [...] + | [facility] | [address] | [place] | [phone] | | [facility] | | [address] | | | - LABORATORY | | | | + + + + + CT Abdomen Pelvis wo Contrast (11/02/2017 7:27 PM [facility]) + + | Specimen | [...] ST. | [address] | [place], [place] | [phone] | | [facility] | | [address] | | | - LABORATORY | | [...] [address] | [place] | [phone] | | [facility] | | [address] | | | - LABORATORY | | [...] | [address] | [address] | [place] | [phone] | | [facility] | | [address] | | | - LABORATORY | | [...] [address] | [place] | [phone] | | [facility] | | [address] | | | - LABORATORY | | [...] [address] | [place] | [phone] | | [facility] | | [address] | | | - LABORATORY | | [...] [address] | [place] | [phone] | | [facility] | | [address] | | | - LABORATORY | | [...] [address] | [place] | [phone] | | [facility] | | [address] | | | - LABORATORY | | [...] [address] | [place] | [phone] | | [facility] | | [address] | | | - LABORATORY | | [...] + | [facility] | [address] | [place] | [phone] | | [facility] | | [address] | | | - LABORATORY | | [...] [address] | [place] | [phone] | | [facility] | | [address] | | | - LABORATORY | | [...] [address] | [place] | [phone] | | [facility] | | [address] | | | - LABORATORY | | [...] [address] | [place] | [phone] | | [facility] | | [address] | | | - LABORATORY | | [...] ST. | [address] | [place] | [phone] | | [facility] | | [address] | | | [...] [address] | [place] | [phone] | | [facility] | | [address] | | | - LABORATORY | | [...] + | [facility] | [address] | [place] | [phone] | | [facility] | | [address] | | | - LABORATORY | | [...] mL/min/1.73m2 | [facility] | | | MALTESE | RATE,ESTIMATED | | MEDICAL | | | | mL/min/1.78z4Ctgr than | | CENTER - | | [...] + | [facility] | [address] | [place] | [phone] | | [facility] | | [address] | | | - LABORATORY | | [...] [address] | [place] | [phone] | | [facility] | | [address] | | | - LABORATORY | | [...] - 1.030 | [facility] | | | [place] | | | [facility] | | [...] + | [facility] | [address] | [place] | [phone] | | [facility] | | [address] | | | - LABORATORY | | [...] | | | | [employer] [place] [employer] | | | | | [...] + | [facility] | [address] | [place] | [phone] | | [facility] | | [address] | | | - LABORATORY | | [...] [address] | [place] | [phone] | | [facility] | | [address] | | | - LABORATORY | | [...] + | [facility] | [address] | [place] | [phone] | | [facility] | | [address] | | | - LABORATORY | | [...] + | [facility] | [address] | [place] | [phone] | | [facility] | | [address] | | | - LABORATORY | | [...] [address] | [place] | [phone] | | [facility] | | [address] | | | - LABORATORY | | [...] [address] | [place] | [phone] | | [facility] | | [address] | | | - LABORATORY | | [...] + | [facility] | [address] | [place] | [phone] | | [facility] | | [address] | | | - LABORATORY | | [...] | third generation TSH | uIU/mL | [facility] | | | | test. [...] [address] | [place] | [phone] | | [facility] | | [address] | | | - LABORATORY | | [...] | | | | [employer] | | | | | [...] [address] | [place] | [phone] | | [facility] | | [address] | | | - LABORATORY | | [...] [address] | [place] | [phone] | | [facility] | | [address] | | | - LABORATORY | | [...] [address] | [place] | [phone] | | [facility] | | [address] | | | - LABORATORY | | [...] | 12 (L)Comment: | >=60 | [facility] | | | | GLOMERULAR FILTRATION | mL/min/1.73m2 | Marianela NERISSA | | | [place]ESE | RATE,ESTIMATED | | MEDICAL | | | | mL/min/1.53u5Ovrb than | | CENTER - | | [...] + | [facility] | [address] | [place] | [phone] | | [facility] | | [address] | | | - LABORATORY | | [...] ST. | [address] | [place], [place] | [phone] | | [facility] | | [address] | | | - LABORATORY | | [...] [address] | [place] | [phone] | | [facility] | | [address] | | | - LABORATORY | | [...] [address] | [place] | [phone] | | [facility] | | [address] | | | - LABORATORY | | [...] for comparison only - no result from [place]. | [facility] | + + + [...] | | | | | | use [place] 10/325 if ordered. If | | | [...] | | | | | | | 5297-9643 Use NIGHT DOSE for | | | | | | | doses scheduled: HS, 3AM, | | | | | | | Nighttime 9055-1973, | | | | | | + [...] scheduled: AC, | | | NPO, Daytime 4402-5724 Use NIGHT | | | DOSE for doses scheduled: | | | HS, 3AM, Nighttime 4578-9775, | | + +---+ | | | [...] | | | | | | Infiltration, FACILITATOR, Starting | | | | | | [...] | DAILY, First dose on [facility] 11/04/17 | | AM PST | [...]
--- OUTSIDE RECORDS SUMMARY | ~2019-09-08 | XMS | Encounter Summary ---
Demographics + + + | Address | [address] | | | [place] [address] | + + + | Home Phone [...] | Author | [facility] | | | and [place] | + + + | Organization | [facility] | | | and [place] | + + + | Address | Unknown | + + + | Phone | Unavailable | + + + Support + + + + + | Name | Relationship | Address | Phone | + + + + + | [place] | ECON | [address] | | | | | [place], [place] | | | | | [address] | | + + + + + | Yina La | ECON | Unknown | | + + + + + | Yina Peterson | ECON | Unknown | | + + + + + | Leatha Casillas | ECON | Unknown | | + + + + + Care Team Providers + +------+ + | Care Bondactor Machine Operator Name | Role | Phone | + +------+ + PCP | Unavailable | + +------+ + Encounter Details +--------+ + + + + | Date | Type | Department | Care Team | Description | +--------+ + + + + | 05/12/ | Hospital | [facility] | | | | 2006 - | Encounter | MED CTR CANCER | | | | | | CENTER [facility] [address] | | | | 05/13/ | | [place] | | | | 2006 | | [address] | | | | | | [phone] | | | +--------+ + + + [...]
--- OUTSIDE RECORDS SUMMARY | ~2019-09-08 | XMS | Encounter Summary ---
Demographics + + + | Address | [address] | | | [place] [address] | + + + | Home Phone [...] + | Author | [facility] | | | and [place] | + + + | Organization | [facility] | | | and [place] | + + + | Address | Unknown | + + + | Phone | Unavailable | + + + Support + + + + + | Name | Relationship | Address | Phone | + + + + + | [place] | ECON | [address] | | | | | [place], [place] | | | | | [address] | | + + + + + | Yina La | ECON | Unknown | | + + + + + | Yina Peterson | ECON | Unknown | | + + + + + | Leatha Casillas | ECON | Unknown | | + + + + + Care Team Providers + +------+ + | Care Pest Control Worker Helper Name | Role | Phone [...] | renal | PA-C [address] | [address] | | | | | disease | [address] | [place], [place] | | | | | ([facility]) | [place] | [address] [facility] | | | | | Procedures | [address] | [facility] | | | | | [place] ESRD | [facility] | [address] Phone: | | | | | RELATED [address] | [place] | [phone] | | | | | MONTHLY | [address] | Fax: | | | | | 20&/> YR OLD | Phone: | [phone] | | | | | 4/> VISITS | [phone] | | | | | | | Fax: | | | | | | | [phone] | | + +--------+ + + + + Encounter Details +--------+ + + + + | Date | Type | Department | Care Team | Description | +--------+ + + + + | 05/08/ | Off-Site | [facility] | Gopi Muñoz | Osteomyelitis, | | 2019 | Visit | NEPHROLOGY [address] | M, DO [address] | unspecified site, | | | | [address] | [place] | unspecified type | | | | [place], [place] | [place] [facility] | (HCC) (Primary Dx); | | | | [address] | [address] | ESRD (end stage | | | | [phone] | | renal disease) on | | [...] not seen.schedule an office visit will at [facility], 2019.] documented in thi s encounter Plan of Treatment Not on filedocumented as of this encounter Visit Diagnoses + + | Diagnosis | + + | Osteomyelitis, unspecified site, unspecified type ([facility]) - Primary | + + | ESRD (end stage renal disease) on dialysis ([facility]) End stage renal disease | + + documented in this encounter"
--- OUTSIDE RECORDS SUMMARY | ~2019-09-08 | XMS | Encounter Summary ---
Demographics + + + | Address | [address] | | | [place] [address] | + + + | Home Phone [...] + | Author | [facility] | | | and [place] | + + + | Organization | [facility] [...] [place], [place] | | | | | [address] | | + + + + + | Yina La | ECON | Unknown | | + + + + + | Yina Peterson | ECON | Unknown | | + + + + + | Leatha Casillas | ECON | Unknown | | + + + + + Care Team Providers + +------+ + | Care Site Inspector Name | Role | Phone | + +------+ + PCP | Unavailable | + +------+ + Encounter Details +--------+ + + + + | Date | Type | Department | Care Team | Description | +--------+ + + + + | 11/08/ | [facility] | [facility] | Provider, | | | 2018 | Exam | MED CTR EXTERNAL | [address] | | | | | IMAGING | [address] | | | | | [phone] | [place] [address] | | +--------+ + + + + [...] for comparison only - no result from [place]. | [facility] | + + + + +---------+ + + | Performing | Address | City/State/Zipcode | Phone Number | | Organization | | | | + +---------+ + + | [facility] | | | | + +---------+ + + documented in this encounter Visit Diagnoses Not on filedocumented in this encounter"
--- OUTSIDE RECORDS SUMMARY | ~2019-09-08 | XMS | Encounter Summary ---
Demographics + + + | Address | [address] | | | [place] [address] | + + + | Home Phone [...] | Author | [facility] | | | and [place] | + + + | Organization | [facility] | | | and [place] | + + + | Address | Unknown | + + + | Phone | Unavailable | + + + Support + + + + + | Name | Relationship | Address | Phone | + + + + + | [place] T[place] | ECON | [address] | | | | | [place], [place] | | | | | [address] | | + + + + + | Yina La | ECON | Unknown | | + + + + + | Yina Peterson | ECON | Unknown | | + + + + + | Leatha Casillas | ECON | Unknown | | + + + + + Care Team Providers + +------+ + | Care Bicycle Rental Clerk Name | Role | Phone | + +------+ + PCP | Unavailable | + +------+ + Encounter Details +--------+ + + + + | Date | Type | Department | Care Team | Description | +--------+ + + + + | 07/26/ | Hospital | [facility] | Anna Banegas MD | Unspecified Backache | | 2006 | Encounter | [address] | [address] | | | | | [address] | [place], [place] | | | | | [place], [place] | [address] | | | | | [address] | | | | | | [phone] | | | +--------+ + + + [...]
--- OUTSIDE RECORDS SUMMARY | ~2019-09-08 | XMS | Encounter Summary ---
Demographics + + + | Address | [address] | | | [place] [address] | + + + | Home Phone [...] | Author | [facility] | | | and [place] | + + + | Organization | [facility] | | | and [place] | + + + | Address | Unknown | + + + | Phone | Unavailable | + + + Support + + + + + | Name | Relationship | Address | Phone | + + + + + | [place] T[place] | ECON | [address] | | | | | [place], [place] | | | | | [address] | | + + + + + | Yina La | ECON | Unknown | | + + + + + | Yina Peterson | ECON | Unknown | | + + + + + | Leatha Casillas | ECON | Unknown | | + + + + + Care Team Providers + +------+ + | Care Wet Wheeler Name | Role | Phone | + +------+ + PCP | Unavailable | + +------+ + Encounter Details +--------+ + + + + | Date | Type | Department | Care Team | Description | +--------+ + + + + | 10/14/ | Hospital | [facility] | | | | 2006 - | Encounter | MED CTR CANCER | | | | | | CENTER [facility] [address] | | | | 11/10/ | | [place] | | | | 2006 | | [address] | | | | | | [phone] | | | +--------+ + + + [...]
--- OUTSIDE RECORDS SUMMARY | ~2019-09-08 | XMS | Encounter Summary ---
Demographics + + + | Address | [address] | | | [place] [address] | + + + | Home Phone [...] | [facility] | | | and [place] | + + + | Organization | [facility] | | | and [place] | + + + | Address | Unknown | + + + | Phone | Unavailable | + + + Support + + + + + | Name | Relationship | Address | Phone | + + + + + | India T[place]ley | ECON | [address] | | | | | [place], [place] | | | | | [address] | | + + + + + | Yina La | ECON | Unknown | | + + + + + | Yina Peterson | ECON | Unknown | | + + + + + | Leatha Casillas | ECON | Unknown | | + + + + + Care Team Providers + +------+ + | Care Plug Making Operator Name | Role | Phone | + +------+ + PCP | Unavailable | + +------+ + Encounter Details +--------+ + + + + | Date | Type | Department | Care Team | Description | +--------+ + + + + | 09/09/ | Hospital | [facility] | | | | 2005 - | Encounter | MED CTR CANCER | | | | | | CENTER [facility] [address] | | | | 09/12/ | | [place] | | | | 2005 | | [address] | | | | | | [phone] | | | +--------+ + + + [...]
--- OUTSIDE RECORDS SUMMARY | ~2019-09-08 | XMS | Encounter Summary ---
Demographics + + + | Address | [address] | | | [place] [address] | + + + | Home Phone [...] Author | [facility] | | | and [place] | + + + | Organization | [facility] | | | and [place] | + + + | Address | Unknown | + + + | Phone | Unavailable | + + + Support + + + + + | Name | Relationship | Address | Phone | + + + + + | India T[place]ley | ECON | [address] | | | | | [place], [place] | | | | | [address] | | + + + + + | Yina La | ECON | Unknown | | + + + + + | Yina Peterson | ECON | Unknown | | + + + + + | Leatha Casillas | ECON | Unknown | | + + + + + Care Team Providers + +------+ + | Care Shipsmith Name | Role | Phone | + +------+ + PCP | Unavailable | + +------+ + Encounter Details +--------+ + + + + | Date | Type | Department | Care Team | Description | +--------+ + + + + | 11/08/ | Imaging | [facility] | Provider, | | | 2018 | Exam | MED CTR EXTERNAL | [address] | | | | | IMAGING | [address] | | | | | [phone] | [place] [address] | | +--------+ + + + + [...] for comparison only - no result from [place]. | [facility] | + + + + +---------+ + + | Performing | Address | City/State/Zipcode | Phone Number | | Organization | | | | + +---------+ + + | [facility] | | | | + +---------+ + + documented in this encounter Visit Diagnoses Not on filedocumented in this encounter"
--- OUTSIDE RECORDS SUMMARY | ~2019-09-08 | XMS | Encounter Summary ---
Demographics + + + | Address | [address] | | | [place] [address] | + + + | Home Phone [...] Author | [facility] | | | and [place] | + + + | Organization | [facility] | | | and [place] | + + + | Address | Unknown | + + + | Phone | Unavailable | + + + Support + + + + + | Name | Relationship | Address | Phone | + + + + + | India T[place]ley | ECON | [address] | | | | | [place], [place] | | | | | [address] | | + + + + + | Yina La | ECON | Unknown | | + + + + + | Yina Peterson | ECON | Unknown | | + + + + + | Leatha Casillas | ECON | Unknown | | + + + + + Care Team Providers + +------+ + | Care Ui Developer With Angular Js Name | Role | Phone | + +------+ + | Renato Pierson WOODWORKING BELT SANDER | PCP | | + +------+ + [...] | al disc | [address] | [place], [place] | | | | | (pyogenic), | [place], [place] | [address] | | | | | thoracic | [address] | Phone: | | | | | region ([facility]) | Phone: | [phone] | | | | | | [phone] | Fax: | | | | | 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: | [phone] | | | | | s of | [phone] | | | | | | thoracic [...] + + | 05/22/ | Hospital | [facility] | Fabiana Miller, | No Show | | 2019 | Encounter | [facility] | Nick Apodaca MD | | | | | [address] | [address] | | | | | [place], [place] | [place] [address] | | | | | [address] | [phone] | | | | | [phone] | | | +--------+ + + + [...]
--- OUTSIDE RECORDS SUMMARY | ~2019-09-08 | XMS | Encounter Summary ---
Demographics + + + | Address | [address] | | | [place] [address] | + + + | Home Phone [...] + | Author | [facility] | | | and [place] | + + + | Organization | [facility] | | | and [place] | + + + | Address | Unknown | + + + | Phone | Unavailable | + + + Support + + + + + | Name | Relationship | Address | Phone | + + + + + | India Tilley | ECON | [address] | | | | | [place], [place] | | | | | [address] | | + + + + + | Yina La | ECON | Unknown | | + + + + + | Yina Peterson | ECON | Unknown | | + + + + + | Leatha Casillas | ECON | Unknown | | + + + + + Care Team Providers + +------+ + | Care Hearing Specialist Name | Role | Phone | [...] + + | 03/09/ | Telephone | [facility] | Santos Stephenson | Other (appointment) | | 2018 | | SURGERY [address] | MD Kinga, FACS [address] | | | | [address] [place], [place] | [facility] | | | | | [address] | [place] [address] | | | | | [phone] | [phone] | | | | | | | [...]
--- OUTSIDE RECORDS SUMMARY | ~2019-09-08 | XMS | Encounter Summary ---
Demographics + + + | Address | [address] | | | [place] [address] | + + + | Home Phone [...] | Author | [facility] | | | and Kamaljitana | + + + | Organization | [facility] | | | and [place] | + + + | Address | Unknown | + + + | Phone | Unavailable | + + + Support + + + + + | Name | Relationship | Address | Phone | + + + + + | India Tilley | ECON | [address] | | | | | [place], [place] | | | | | [address] | | + + + + + | Yina La | ECON | Unknown | | + + + + + | Yina Peterson | ECON | Unknown | | + + + + + | Leatha Casillas | ECON | Unknown | | + + + + + Care Team Providers + +------+ + | Care Import/Export Administrator Name | Role | Phone | [...] LISA | | | | | [place] | | | | | | [address] | | | | | | [phone] | | | +--------+ + + + [...]
--- OUTSIDE RECORDS SUMMARY | ~2019-09-08 | XMS | Encounter Summary ---
Demographics + + + | Address | [address] | | | [place] [address] | + + + | Home Phone [...] | Author | [facility] | | | and Kamaljitana | + + + | Organization | [facility] | | | and [place] | + + + | Address | Unknown | + + + | Phone | Unavailable | + + + Support + + + + + | Name | Relationship | Address | Phone | + + + + + | India Tilley | ECON | [address] | | | | | [place], [place] | | | | | [address] | | + + + + + | Yina La | ECON | Unknown | | + + + + + | Yina Peterson | ECON | Unknown | | + + + + + | Leatha Casillas | ECON | Unknown | | + + + + + Care Team Providers + +------+ + | Care Sticker On Name | Role | Phone | + [...] Required | | deconditioni | DO [address] | | | | | | ng Anemia | [place], [place] | | | | | | of chronic | [address] | | | | | | renal | [place], [place] | | | | | | failure, | [address] | | | | | | stage 5 | Phone: | | | | | | ([facility]) | [phone] | | | | | | Closed | Fax: | | | | | | fracture of | [phone] | | | | | | right [...] [facility]) | | | +--------+--------+ + + + + Encounter Details +--------+ + + + + | Date | Type | Department | Care Team | Description | +--------+ + + + + | 12/04/ | Hospital | [facility] | Nick Mendoza MD | Closed fracture of | | 2019 - | Encounter | MED CTR SURGICAL | [address] | neck of right femur, | | | | [address] | [place] | initial encounter | | 12/09/ | | [place] [address] | [address] | ([facility]) (Primary Dx); | | 2019 | | [phone] | | Non-compliance; End | | | | | Scott Koroma MD | stage renal disease | | | | | [address] | ([facility]); Type 2 | | | | | [place], [place] | diabetes mellitus | | | | | [address] | with stage 4 chronic | | | | | | kidney disease, | | | | | | with long-term | | | | | | current use of | | | | | | insulin ([facility]); | | | | | | Closed fracture of | | | | | | right hip, initial | | | | | | encounter ([facility]); | | | | | | Type 2 DM with CKD | | | | | | stage 5 and | | | | | | hypertension ([facility]); | | | | | | Renal bone disease; | | | | | | Physical | | | | | | deconditioning; | | | | | | Anemia of chronic | | | | | | renal failure, stage | | | | | | 5 ([facility]); Closed | | | | | | [...] signed by: Scott Koroma, 12/20/2018 12:05 [facility] signed by Scott Koroma MD at 05/2019 12:10 PM PDTdocumented in this encounter Discharge Instructions Instructions Gopi Muñoz DO - . Please keep your old HD appt. at [facility] for 12/12/2018. 2. Call our Office if you change your mind and wish to go to [facility] , for further R ehab. 3. [...] might be d ifferent from the original. [facility] [address] [place] [address] PROGRESS NOTE Pt. Name/Age/: Estefani Tilley 73 y.o. 1945 Med. Record Number: [id number] Date of admission: 12/04/2018 NEPHROLOGY HPI - [...] Lungs: Prolonged expiratory phase, with findings of Lenox rales lower 1/4 both lungs. Abdomen: Soft, [...] HD tomorrow and assess for DC soon. [facility] Amol Green MD - 12/08/2018 3:29 [...] going to any Rehab. Ctr after DC. [facility] Scott Tadeo MD - 12/07/2018 8:56 [...] Hassan DO - 12/06/2018 5:33 PM PDT [facility] [address] [place] [address] PROGRESS NOTE Pt. Name/Age/: Estefani Tilley 73 y.o. 1945 Med. Record Number: [id number] Date of admission: 12/04/2018 NEPHROLOGY HPI - [...] Lungs: Prolonged expiratory phase, with findings of [place] rales lower 1/4 both lungs. Abdomen: Soft, [...] to go home when felt ap propriate [facility] Scott Tadeo MD - 12/06/2018 8:02 [...] directions X Pharmacy list names: [facility] ([place]) X Outside Information Vaccines up to date? [...] did not want to answer medication history coroner transport technician's questions; barely verifie d her name. Answered questions with head nods or patients stating that she was not taking a medication. Medication: Prior to Admission Sig: Patient taking differently COMPLAINT SUPERVISOR as: Atorvastatin 20 mg tablet Take 1 [...] idea what this medication was Best possible COMPLAINT SUPERVISOR medication list after pharmacy review: PT REPORTED [...] into the vein Three times a w [place]. Historical Provider, epoetin karthik (EPOGEN, PROCRIT) 10,000 [...] Take 1 tablet by mouth Daily. Taking Gpoi Muñoz DO montelukast (SINGULAIR) 10 mg tablet [...] performed and electronically signed by Kerry Jordan, Forms Examiner 12/05/2018 14:45 Reviewed by Flora Watts, PharmD 12/05/2018 15:51 Scott Tadeo MD - 12/05/2018 7:41 AM PDT Patient feels better than yest Vitals: 12/05/18 0731 BP: 152/71 Pulse: 67 Resp: 16 Temp: 36.4 C (97.6 F) Intake/Output Summary (Last 24 hours) at 12/05/18 0738 Last data filed at 12/05/18 1725 Gross per 24 hour Intake 1115 ml [...] | | | | | 5 ([facility]) Closed | | | | | | [...] R?MRN: | | | | | | [id number] | | | [id number] | | | riteri | | | [...] | | | St. | | | [place] | | | y | | | [...] | | | [facility] | | | [place] | | | [facility] | | | [facility] | | | [facility] | | | [place] | | | y | | | [...] | | | St. | | | [place] | | | y H. | | [...] | | e of | | | [place] | | | | | | [place] [...] | | | St. | | | [place] | | | y H. | | [...] the | | | | | | tomography technologist | | | al | | | [...] | | | St. | | | [place] | | | y H. | | [...] | | e of | | | [place] | | | | | | [place] [...] | | | [facility] | | | [place] | | | [place] | | | ID | | | [...] | | | [facility] | | | [place] | | | [place] | | | ID | | | [...] | | | [facility] | | | [place] | | | [place] | | | ID | | | [...] | | | [facility] | | | [place] | | | [place] | | | ID | | | [...] | | | [facility] | | | [place] | | | [place] | | | ID | | | [...] | | | [facility] | | | [facility] | | | | | | HEALTH [...] | | | aff-d8 | | | [id number] | | | 3131 | | | [...] | [facility] | [address] | [place] | [phone] | | [facility] | | [address] | | | - LABORATORY | | [...] | [facility] | [address] | [place] | [phone] | | [facility] | | [address] | | | - LABORATORY | | [...] [address] | [place] | [phone] | | [facility] | | [address] | | | - LABORATORY | | [...] | [facility] | [address] | [place] | [phone] | | [facility] | | [address] | | | - LABORATORY | | [...] [address] | [place] | [phone] | | [facility] | | [address] | | | - LABORATORY | | [...] [address] | [place] | [phone] | | [facility] | | [address] | | | - LABORATORY | | [...] [address] | [place] | [phone] | | [facility] | | [address] | | | - LABORATORY | | [...] | [facility] | [address] | [place] | [phone] | | [facility] | | [address] | | | - LABORATORY | | [...] [address] | [place] | [phone] | | [facility] | | [address] | | | [...] [address] | [place] | [phone] | | [facility] | | [address] | | | - LABORATORY | | [...] | [facility] | [address] | [place] | [phone] | | [facility] | | [address] | | | - [...] | [facility] | [address] | [place], [place] | [phone] | | [facility] | | [address] | | | - LABORATORY | | [...] [address] | [place] | [phone] | | [facility] | | [address] | | | - LABORATORY | | [...] [address] | [place] | [phone] | | [facility] | | [address] | | | - LABORATORY | | [...] [address] | [place] | [phone] | | [facility] | | [address] | | | - LABORATORY | | [...] | [facility] | [address] | [place] | [phone] | | [facility] | | [address] | | | - LABORATORY | | [...] [address] | [place] | [phone] | | [facility] | | [address] | | | - LABORATORY | | [...] ST. | [address] | [place], [place] | [phone] | | [facility] | | [address] | | | - LABORATORY | | [...] [address] | [place] | [phone] | | [facility] | | [address] | | | - LABORATORY | | [...] | [facility] | [address] | [place] | [phone] | | [facility] | | [address] | | | - LABORATORY | | [...] [address] | [place] | [phone] | | [facility] | | [address] | | | - LABORATORY | | [...] [address] | [place] | [phone] | | [facility] | | [address] | | | - LABORATORY | | [...] [facility] | | | [place] | | | MEDICAL | | | [...] [address] | [place] | [phone] | | [facility] | | [address] | | | - LABORATORY | | [...] ST. | [address] | [place] | [phone] | | [facility] | | [address] | | | - LABORATORY | | [...] [address] | [place] | [phone] | | [facility] | | [address] | | | - LABORATORY | | [...] | [facility] | [address] | [place] | [phone] | | [facility] | | [address] | | | - LABORATORY | | [...] ST. | [address] | [place] | [phone] | | [facility] | | [address] | | | - LABORATORY | | [...] | [facility] | [address] | [place] | [phone] | | [facility] | | [address] | | | - LABORATORY | | [...] [address] | [place] | [phone] | | [facility] | | [address] | | | - LABORATORY | | [...] | [facility] | [address] | [place] | [phone] | | [facility] | | [address] | | | - LABORATORY | | [...] mL/min/1.73m2 | [facility] | | | [place] | | | MEDICAL | | | [...] [address] | [place] | [phone] | | [facility] | | [address] | | | - LABORATORY | | [...] ST. | [address] | [place], [place] | [phone] | | [facility] | | [address] | | | - LABORATORY | | [...] | | | | | | | 1927-9598 Use NIGHT DOSE for | | | | | | | doses scheduled: HS, 3AM, | | | | | | | Nighttime 6042-7194, | | | | | | + [...] scheduled: AC, NPO, Daytime | | | 8216-6250 Use NIGHT DOSE for | | | doses scheduled: HS, 3AM, | | | Nighttime 4259-4541, | | + +---+ | | | [...]
--- OUTSIDE RECORDS SUMMARY | ~2019-09-08 | XMS | Encounter Summary ---
Demographics + + + | Address | [address] | | | [place] [address] | + + + | Home Phone [...] | Author | [facility] | | | and Kamaljitana | + + + | Organization | [facility] | | | and [place] | + + + | Address | Unknown | + + + | Phone | Unavailable | + + + Support + + + + + | Name | Relationship | Address | Phone | + + + + + | India Tilley | ECON | [address] | | | | | [place], [place] | | | | | [address] | | + + + + + | Yina La | ECON | Unknown | | + + + + + | Yina Peterson | ECON | Unknown | | + + + + + | Leatha Casillas | ECON | Unknown | | + + + + + Care Team Providers + +------+ + | Care Plastics Engineering Teacher Name | Role | Phone | + +------+ + PCP | Unavailable | + +------+ + Encounter Details +--------+ + + + + | Date | Type | Department | Care Team | Description | +--------+ + + + + | 05/16/ | Abstract | [facility] | Gopi Muñoz | | | 2018 | | NEPHROLOGY [address] | M, DO [address] | | | | | [address] [facility] [address] | [place], [facility] 100 | | | | | [place], [place] | [place] | | | | | [address] | [address] | | | | | [phone] | | | +--------+ + + + [...]
--- OUTSIDE RECORDS SUMMARY | ~2019-09-08 | XMS | Encounter Summary ---
Demographics + + + | Address | [address] | | | [place] [address] | + + + | Home Phone [...] | Author | [facility] | | | and Kamaljitana | + + + | Organization | [facility] | | | and [place] | + + + | Address | Unknown | + + + | Phone | Unavailable | + + + Support + + + + + | Name | Relationship | Address | Phone | + + + + + | India Tilley | ECON | [address] | | | | | [place], [place] | | | | | [address] | | + + + + + | Yina La | ECON | Unknown | | + + + + + | Yina Peterson | ECON | Unknown | | + + + + + | Leatha Casillas | ECON | Unknown | | + + + + + Care Team Providers + +------+ + | Care Exhaust Emissions Inspector Name | Role | Phone | [...] Surgery | kidney | DO [address] | [address] | | | | | disease, | [place], [place] | [address] | | | | | stage V | [address] | [place], | | | | | ([facility]) | [place] | [place] [address] | | | | | | [address] | Phone: | | | | | | Phone: | [phone] | | | | | | [phone] | Fax: | | | | | | Fax: | [phone] | | | | | | [phone] | | +--------+ + + + + + Encounter Details +--------+---------+ + + + | Date | Type | Department | Care Team | Description | +--------+---------+ + + + | 02/10/ | Office | [facility] | Santos Stephenson | Chronic kidney | | 2018 | Visit | SURGERY [address] | MD Kinga, FACS [address] | disease, stage V | | | | [place], [place] | [address] [facility] | (HCC) (Primary Dx); | | | | [address] | [place] [address] | Post-operative state | | | | [phone] | [phone] | | | | | | | [...] REPORT: PATIENT NAME : Estefani Tilley EQUIPMENT: [employer] M-Turbo with 10-5 mHertz probe. INDICATIONS: S/P [...]
--- OUTSIDE RECORDS SUMMARY | ~2019-09-08 | XMS | Encounter Summary ---
Demographics + + + | Address | [address] | | | [place] [address] | + + + | Home Phone [...] + | India Tilley | ECON | [address] | | | | | [place], [place] | | | | | [address] | | + + + + + | Yina La | ECON | Unknown | | + + + + + | Yina Peterson | ECON | Unknown | | + + + + + | Leatha Casillas | ECON | Unknown | | + + + + + Care Team Providers + +------+ + | Care Solar Energy Technician Name | Role | Phone | + +------+ + PCP | Unavailable | + +------+ + Encounter Details +--------+ + + + + | Date | Type | Department | Care Team | Description | +--------+ + + + + | 07/26/ | Hospital | [facility] | Anna Banegas MD | Unspecified Backache | | 2006 | Encounter | CONVERSION [address] | [address] | | | | | [address] | [place], [place] | | | | | [place], [place] | [address] | | | | | [address] | | | | | | [phone] | | | +--------+ + + + [...]
--- OUTSIDE RECORDS SUMMARY | ~2019-09-08 | XMS | Encounter Summary ---
Demographics + + + | Address | [address] | | | [place] [address] | + + + | Home Phone [...] | Author | [facility] | | | and Kamaljitana | + + + | Organization | [facility] | | | and [place] | + + + | Address | Unknown | + + + | Phone | Unavailable | + + + Support + + + + + | Name | Relationship | Address | Phone | + + + + + | India Tilley | ECON | [address] | | | | | [place], [place] | | | | | [address] | | + + + + + | Yina La | ECON | Unknown | | + + + + + | Yina Peterson | ECON | Unknown | | + + + + + | Leatha Casillas | ECON | Unknown | | + + + + + Care Team Providers + +------+ + | Care Airline Captain Name | Role | Phone | [...] | renal | PA-C [address] | [address] | | | | | disease | [address] | [place], [place] | | | | | ([facility]) | [place] | 100 [facility] | | | | | Procedures | [address] [address] | [facility] [place] | | | | | [place] ESRD | [facility] | [address] Phone: | | | | | RELATED [place] | [place] | [phone] | | | | | MONTHLY | [address] | Fax: | | | | | 20&/> YR OLD | Phone: | [phone] | | | | | 4/> VISITS | [phone] | | | | | | | Fax: | | | | | | | [phone] | | + +--------+ + + + + Encounter Details +--------+ + + + + | Date | Type | Department | Care Team | Description | +--------+ + + + + | 03/06/ | Off-Site | [facility] | Gopi Muñoz | End stage renal | | 2019 | Visit | NEPHROLOGY [address] | M, DO [address] | disease (HCC) | | | | [address] | [place], [place] [address] | (Primary Dx) | | | | [place] | [place], [place] | | | | | [address] | [address] | | | | | [phone] | | | +--------+ + + + [...]
--- OUTSIDE RECORDS SUMMARY | ~2019-09-08 | XMS | Encounter Summary ---
Demographics + + + | Address | [address] | | | [place] [address] | + + + | Home Phone [...] | Author | [facility] | | | and Kamaljitana | + + + | Organization | [facility] | | | and [place] | + + + | Address | Unknown | + + + | Phone | Unavailable | + + + Support + + + + + | Name | Relationship | Address | Phone | + + + + + | India Tilley | ECON | [address] | | | | | [place], [place] | | | | | [address] | | + + + + + | Yina La | ECON | Unknown | | + + + + + | Yina Peterson | ECON | Unknown | | + + + + + | Leatha Casillas | ECON | Unknown | | + + + + + Care Team Providers + +------+ + | Care Crayon Sorting Machine Feeder Name | Role | Phone [...] | Surgery | kidney | DO [address] | [address] | | | | | disease, | [place], [place] | [address] | | | | | stage V | [address] | [place], | | | | | ([facility]) | [place] | [place] [address] | | | | | | [address] | Phone: | | | | | | Phone: | [phone] | | | | | | [phone] | Fax: | | | | | | Fax: | [phone] | | | | | | [phone] | | +--------+ + + + + + Encounter Details +--------+---------+ + + + | Date | Type | Department | Care Team | Description | +--------+---------+ + + + | 02/10/ | Office | [facility] | Santos Stephenson | Chronic kidney | | 2018 | Visit | SURGERY [address] | MD Kinga, FACS [address] | disease, stage V | | | | [place], [place] | [address] [facility] | (HCC) (Primary Dx); | | | | [address] | [facility] [place] [address] | Post-operative state | | | | [phone] | [phone] | | | | | | | [...] REPORT: PATIENT NAME : Estefani Tilley EQUIPMENT: [employer] M-Turbo with 10-5 mHertz probe. INDICATIONS: S/P [...]
--- OUTSIDE RECORDS SUMMARY | ~2019-09-08 | XMS | Encounter Summary ---
Demographics + + + | Address | [address] | | | [place] [address] | + + + | Home Phone [...] | Author | [facility] | | | and Kamaljitana | + + + | Organization | [facility] | | | and [place] | + + + | Address | Unknown | + + + | Phone | Unavailable | + + + Support + + + + + | Name | Relationship | Address | Phone | + + + + + | India Tilley | ECON | [address] | | | | | [place], [place] | | | | | [address] | | + + + + + | Yina La | ECON | Unknown | | + + + + + | Yina Peterson | ECON | Unknown | | + + + + + | Leatha Casillas | ECON | Unknown | | + + + + + Care Team Providers + +------+ + | Care Head Animal Trainer Name | Role | Phone | [...] + | 06/01/ | Telephone | [facility] [place] | Darlin Moseley W, | Nephrology | | 2017 | | NEPHROLOGY [address] | [address] | Appointment | | | | [address] [facility] | [place] [address] | | | | | [place] | [place] [address] | | | | | [address] | [phone] | | | | | [phone] | | | +--------+ + + + [...]
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
== END 2019-09-08 14:59 | disposition home or self-care (01) ==
LOC: ED 12:19
DX: M79.89 Other specified soft tissue disorders (principal); I12.9 Hypertensive chronic kidney disease with stage 1 through stage 4 chronic kidney disease, or unspecified chronic kidney disease; E11.22 Type 2 diabetes mellitus with diabetic chronic kidney disease; N18.9 Chronic kidney disease, unspecified; I25.10 Atherosclerotic heart disease of native coronary artery without angina pectoris; E11.40 Type 2 diabetes mellitus with diabetic neuropathy, unspecified; F32.9 Major depressive disorder, single episode, unspecified; E03.9 Hypothyroidism, unspecified; Z99.2 Dependence on renal dialysis; Z87.891 Personal history of nicotine dependence; Z88.8 Allergy status to other drugs, medicaments and biological substances; Z88.6 Allergy status to analgesic agent; Z79.899 Other long term (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; Z79.82 Long term (current) use of aspirin
CPT/HCPCS: 99283

== ENCOUNTER 2020-03-21 14:01 | Emergency (ER) | payer MEDICARE, OTHER ==
[~2020-03-21] VITALS: Ht 172.7 cm; Wt 74.8 kg
--- OUTSIDE RECORDS SUMMARY | ~2020-03-21 | XMS | Encounter Summary ---
Demographics + + + | Address | [address] | | | [place] [address] | + + + | Home Phone | | + + + | Preferred Language | Unknown | + + + | Marital Status | Single | + + + | Spiritism Affiliation | Unknown | + + + | Race | Unknown | + + + | Ethnic Group | Unknown | + + + Author + + + | Author | [facility] | | | and [place] | + + + | Organization | [facility] | | | and [place] | + + + | Address | Unknown | + + + | Phone | Unavailable | + + + Support + + + + + | Name | Relationship | Address | Phone | + + + + + | India Tilley | ECON | [id number] | | | | | [place], [place] | | | | | [address] | | + + + + + | Yina La | ECON | Unknown | | + + + + + | Yina Peterson | ECON | Unknown | | + + + + + | Leatha Casillas | ECON | Unknown | | + + + + + | Azael Ocasio | ECON | Unknown | | + + + + + | Lisa Fred | ECON | Unknown | | + + + + + Care Team Providers + +------+ + | Care Pomologist Name | Role | Phone | + +------+ + PCP | Unavailable | + +------+ + Reason for Visit + +--------+ + | Reason | Onset | Comments | | | Date | | + +--------+ + | Appointment | 12/29/ | | | | 2018 | | + +--------+ + Encounter Details +--------+ + + + + | Date | Type | Department | Care Team | Description | +--------+ + + + + | 12/29/ | Telephone | [facility] | Santos Stephenson | Appointment | | 2018 | | SURGERY [address] | MD Kinga, FACS [address] | [address] [place], [place] | [facility] | | | | | [address] | [place] [address] | | | | | [phone] | [phone] | | | | | | | | +--------+ + + + [...] on file | | + + + documented as of this encounter Miscellaneous Notes Telephone Encounter - Merry James - 12/29/2017 9:14 AM PDTCalled to confirm appointmen t for 12/30/2017 10:00 am. When speaking with patient she was asking about what would happen during appointment. I went to transfer her to nurse to answer these questions and patient hu ng up. documented in this e ncounter Plan of Treatment Not on filedocumented as of this encounter Visit Diagnoses Not on filedocumented in this encounter"
--- OUTSIDE RECORDS SUMMARY | ~2020-03-21 | XMS | Encounter Summary ---
Demographics + + + | Address | [address] | | | [place] [address] | + + + | Home Phone | | + + + | Preferred Language | Unknown | + + + | Marital Status | Single | + + + | Jainism Affiliation | Unknown | + + + | Race | Unknown | + + + | Ethnic Group | Unknown | + + + Author + + + | Author | [facility] | | | and [place] | + + + | Organization | [facility] | | | and [place] | + + + | Address | Unknown | + + + | Phone | Unavailable | + + + Support + + + + + | Name | Relationship | Address | Phone | + + + + + | India Tilley | ECON | [phone] | | | | | [place], [place] | | | | | [address] | | + + + + + [...] Team Providers + +------+ + | Care Fourdrinier Wire Weaver Name | Role | Phone | + +------+ + PCP | Unavailable | + +------+ + Encounter Details +--------+ + + + + | Date | Type | Department | Care Team | Description | +--------+ + + + + | 03/24/ | Abstract | [facility] | Kelsea, | | | 2017 | | NEPHROLOGY [address] | [address] | | | | | [address] | [address] | | | | | [place] | [address] [place] | | | | | [address] | [address] | | | | | [phone] | | | +--------+ + + + [...] documented as of this encounter Progress Notes Tatiana Rendon - 03/24/2017 1:03 PM PDTOutside records: Referral packet received from Dora Bruno PA-C, [facility] to nephrology. Sent to Malik owens signed by Tatiana Rendon at 03/24/2017 1:05 PM PDTdocumented in this encounter Plan of Treatment Not on filedocumented as of this encounter Visit Diagnoses Not on filedocumented in this encounter"
--- OUTSIDE RECORDS SUMMARY | ~2020-03-21 | XMS | Encounter Summary ---
Demographics + + + | Address | [address] | | | [place] [address] | + + + | Home Phone | | + + + | Preferred Language | Unknown | + + + | Marital Status | Single | + + + | Oriental Orthodox Affiliation | Unknown | + + + | Race | Unknown | + + + | Ethnic Group | Unknown | + + + Author + + + | Author | [facility] | | | and [place] | + + + | Organization | [facility] | | | and [place] | + + + | Address | Unknown | + + + | Phone | Unavailable | + + + Support + + + + + | Name | Relationship | Address | Phone | + + + + + | India Tilley | ECON | [phone] | | | | | [place], [place] | | | | | [phone] | | + + + + + [...] Team Providers + +------+ + | Care Ems Educator Name | Role | Phone | + +------+ + PCP | Unavailable | + +------+ + Reason for Referral Evaluate & Treat (Routine) +--------+ + + + + + | Status | Reason | Specialty | Diagnoses / | Referred By | Referred To | | | | | Procedures | Contact | Contact | +--------+ + + + + + | Closed | Specialty | Home Health | Diagnoses | [place], | | | | Services | Services | Physical | Gopi Roman, | | | | Required | | deconditioni | DO [address] | | | | | ng Anemia | [address] | | | | | | of chronic | [address] | | | | | | renal | [place], | | | | | | failure, | [place] [address] | | | | | | stage 5 | Phone: | | | | | | ([facility]) | [phone] | | | | | | Closed | Fax: | | | | | | fracture of | [phone] | | | | | | right hip | | | | | | | with routine | | | | | | | healing, | | | | | | | subsequent | | | | | | | encounter | | | +--------+ + + + + + Reason for Visit + + + | Reason | Comments | + + + | Hip Pain | | + + + Auth/Cert +--------+--------+ + + + + | [...] | | | | | | | ([facility]) | | | +--------+--------+ + + + + Encounter Details +--------+ + + + + | Date | Type | Department | Care Team | Description | +--------+ + + + + | 12/04/ | Hospital | [facility] | Nick Mendoza MD | Closed fracture of | | 2019 - | Encounter | MED CTR SUR[facility] | [address] | neck of right femur, | | | | [address] | [place] | initial encounter | | 12/09/ | | [place] [id number] | [id number] | ([facility]) (Primary Dx); | | 2019 | | [phone] | | Non-compliance; End | | | | | Scott Brooks MD | stage renal disease | | | | | [address] | ([facility]); Type 2 | | | | | [place] | diabetes mellitus | | | | | [id number] | with stage 4 chronic | | | | | | kidney disease, | | | | | | with long-term | | | | | | current use of | | | | | | insulin ([facility]); | | | | | | Closed fracture of | | | | | | right hip, initial | | | | | | encounter ([facility]); | | | | | | Type 2 DM with CKD | | | | | | stage 5 and | | | | | | hypertension ([facility]); | | | | | | Renal bone disease; | | | | | | Physical | | | | | | deconditioning; | | | | | | Anemia of chronic | | | | | | renal failure, stage | | | | | | 5 (HCC); Closed | | | | | | fracture of right | | | | | | hip with routine | | | | | | healing, subsequent | | | | | | encounter | +--------+ + + + + Social [...] + + + | Blood Pressure | 175/71 | 12/09/2018 4:30 PM | | | | | PDT | | + + + + + | Pulse | 67 | 12/09/2018 4:30 PM | | | | | PDT | | + + + + + | Temperature | 36.1 C (97 F) | 12/09/2018 3:10 PM | | | | | PDT | | + + + + + | Respiratory Rate | 14 | 12/09/2018 1:07 PM | | | | | PDT | | + + + + + | Oxygen Saturation | 98% | 12/09/2018 4:30 PM | | | | | PDT | | + + + + + | Inhaled Oxygen | - | - | | | Concentration | | | | + + + + + | Weight | 70.8 kg (156 lb) | 12/09/2018 3:32 AM | | | | | PDT | | + + + + + | Height | 172.7 cm (5' 8") | 12/04/2018 1:41 PM | | | | | PDT | | + + + + + | Body Mass Index | 23.72 | 12/04/2018 1:41 PM | | | | | PDT [...] + + documented as of this encounter Discharge Summaries Scott Brooks MD - 12/09/2018 12:04 PM PDTFormatting of this note might be different fro m the original. DISCHARGE SUMMARY Pt. Name/Age/: Ara Tilley 73 y.o. 1945 Date of Admission: 12/04/2018 Date of Discharge: 12/09/2018 Admitting Physician: Scott Brooks MD PCP: Francisca Womack Discharging Physician: Scott Brooks MD Primary Discharge Dx: Closed right hip fracture (HCC) Right garden one nondisplaced femoral neck fracture S/p cannulated screw fixation surgery Secondary Discharge Dx: Patient Active Problem List Diagnosis Anemia Arthritis Back pain History of blood clots Cancer Heart disease Hypertension Seasonal allergies Diabetes - INSULIN Control Hypercholesteremia Depressive disorder, not elsewhere classified 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 Facial cellulitis Hypothyroidism 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 She had some initial pain control difficulties but this improved t hroughout her stay. She had dialysis by Dr. Muñoz and it was felt she would be an appropr iate candidate for SNF stay but she was adamantly opposed to this and by her hospital day 5 she was stable for discharge to home. Her wound clean and dry and dressings changed to aquac el. She is weight bear as tolerated but is only touch down at this time. She has home health set up and will see her in the office in one month with xrays Pertinent Diagnostic Info/Data: Medications Reconciled upon Discharge are: Discharge Medications Changed Medications Details Cholecalciferol 4000 units Tabs Take 4,000 Units by mouth Daily. What changed: medication strength how much to take Unchanged Medications Details albuterol 90 mcg/puff inhaler Inhale 2 puffs into the lungs 4 times daily as needed for Shortness of Breath. ARTIFICIAL TEAR SOLUTION OP Place 1-2 drops into both eyes as needed (for dry eyes). aspirin 81 mg EC tablet Take 81 mg by mouth Daily. atorvaSTATin 20 mg tablet Take 20 mg by mouth nightly. aka: LIPITOR b complex-vitamin c-folic acid tablet Take 1 tablet by mouth Daily. epoetin karthik 10,000 units/mL injection Inject 10,000 Units under the skin Three times a week. aka: EPOGEN, PROCRIT furosemide 80 mg tablet Take 1 tablet by mouth Daily. aka: LASIX hydrophilic ointment Apply 1 Application topically Daily. For dry skin insulin glargine 100 units/mL injection (pen) Inject 12 Units under the skin nightly. aka: LANTUS SOLOSTAR Insulin Pen Needle 31G X 5 MM Misc by Does not apply route. labetalol 200 mg tablet Take 1 tablet by mouth 2 times daily. aka: NORMODYNE Lancets Misc by Does not apply route. levothyroxine 75 MCG tablet Take 75 mcg by mouth every morning (before breakfast). aka: SYNTHROID lidocaine-prilocaine cream Apply 1 Application topically Daily. To access 1 hour prior to dialysis aka: EMLA losartan 100 MG tablet Take 1 tablet by mouth Daily. aka: COZAAR montelukast 10 mg tablet Take 10 mg by mouth nightly. For asthma or allergies aka: SINGULAIR olopatadine 0.1% ophthalmic solution Place 1-2 drops into both eyes 2 times daily. aka: PATANOL pantoprazole 40 mg tablet Take 40 mg by mouth every morning (before breakfast). aka: PROTONIX UNABLE TO FIND Med Name: Cadoexomer Iodine 0.9 % gel. Apply a small amount to affected area as directed during dressing changes. Discontinued Medications gabapentin 100 mg capsule aka: NEURONTIN HECTOROL 2 mcg/mL injection Generic drug: doxercalciferol HYDROcodone-acetaminophen 5-325 mg per tablet aka: ePropertyData TRUE METRIX BLOOD GLUCOSE TEST Condition on Discharge: Stable Disposition: Patient was discharged to home with home health Follow-Up Plans: One month Code Status/Advance Directive (Pertinent discussions/declarations): Prior Electronically signed by: Scott Brooks, 12/20/2018 12:05 [facility]ronically signed by Scott Brooks MD at 0405/2019 12:10 PM PDTdocumented in this encounter Discharge Instructions Instructions Gopi Muñoz, DO - . Please keep your old HD appt. at [facility] for 12/12/2018. 2. Call our Office if you change your mind and wish to go to [facility] , for further R ehab. 3. Home Health will come and see you, to assist with your P.T. documented in this encounter Medications at Time of Discharge [...] + +---------+ + + | | Take 1 tablet by | 50 | 0 | 12/10/19 | | | oxyCODONE-acetaminop | mouth every [...] documented as of this encounter Progress Notes Nidia Castano RN - 12/09/2018 6:31 PM PDTAVS, including newly prescribed medicatio ns, follow-up instructions (with both Drs. Muñoz and Manish), and s/s emergency/when t o call MD, reviewed thoroughly with pt and son. Questions answered. Pt left unit via WC, bel ongings in hand. Son to provide ride home. Case management to follow-up tomorrow regarding h ome health and DME order. 6: 32 PM Gopi Hassan DO - 12/08/2018 10:04 PM PDTFormatting of this note might be d ifferent from the original. [facility] [address] [place] [address] PROGRESS NOTE Pt. Name/Age/: Ara Tilley 73 y.o. 1945 Med. Record Number: [id number] Date of admission: 12/04/2018 NEPHROLOGY HPI - Pt seen at 1100. She appears more happy today. Voiding w/o the al. Lab Results Component Value Date POCGLU 112 (H) 12/08/2018 POCGLU 149 (H) 12/07/2018 POCGLU 126 (H) 12/07/2018 POCGLU 183 (H) 12/06/2018 EXAM: BP 192/70 | Pulse 67 | Temp 36.6 C (97.9 F) (Oral) | Resp 18 | Ht 1.727 m (5' 8") | Wt 69.5 kg (153 lb 3.5 oz) | SpO2 94% | BMI 23.30 kg/m Tmax 36.4 ( dec. 1kg) Intake/Output Summary (Last 24 hours) at 12/08/18 2205 Last data filed at 12/08/18 1818 Gross per 24 hour Intake 850 ml Output 625 ml Net 225 ml Heart: Regular rate and rhythm with no S3, S4, murmur or rub. Lungs: Prolonged expiratory phase, with findings of [place] rales lower 1/4 both lungs. Abdomen: Soft, obese, nontender, normoactive bowel sounds. Extremities: no edema, dressing dry. IMPRESSION 1. POD #4, s/p ORIF of right femoral neck fracture-- progressing with PT, slowly. 2. 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 3. Type II DM-- stable on diet Rx. 4. CKD/MBD--good control by the most recent PTH. However, she could benefit from Renvela, AC & HS. 5. Anemia secondary to CKD-- on Epo, IV Fe. 6. Chronic depression-- she refuses any SSRI. PLAN 1. Discussed with Dr. Hammond. 2. Will do HD tomorrow and assess for DC soon. [facility] Amol Green MD - 12/08/2018 3:29 PM PDTFormatting of this note might be different from the origina lMarianela Tilley SUBJECTIVE: Upbeat, lots of family and friends in her room. No complaints. OBJECTIVE: Vitals with Comments 12/07/2018 12/07/2018 12/08/2018 12/08/2018 SYSTOLIC - 180 174 190 DIASTOLIC - 78 72 78 BP Comments - - - - Pulse 65 71 66 68 Temp - 98.1 97.7 98.3 Resp - 18 18 17 Weight - - 153 lbs 4 oz - Weight Comments - - - - Height - - - - SPO2 94 94 92 95 SPO2 Comments - - - - BMI - - - - Pain Score - - - - Pain Score - - - - Pain Loc - - - - Pain Loc - - - - Intake/Output Summary (Last 24 hours) at 12/08/18 1529 Last data filed at 12/08/18 1222 Gross per 24 hour Intake 900 ml Output 475 ml Net 425 ml Recent Results (from the past 24 hour(s)) POC Glucose Collection Time: 12/07/18 16:49 Result Value Ref Range Glucose, POC 149 (H) 70 - 109 mg/dL POC Glucose Collection Time: 12/08/18 6:50 Result Value Ref Range Glucose, POC 112 (H) 70 - 109 mg/dL Microbiology Results (72 hrs) No results found for the last 72 hours. Bandages dry, NV function intact to feet. PT proceeding steadily. ASSESSMENT: Stable. PLAN: Dialysis tomorrow AM (confirmed with Dr. Muñoz), followed by PT and then decision regard ing D/C. Pb Hammond MD Gopi Hassan DO - 12/07/2018 8:15 PM PDTNEPHROLOGY Pt was seen earlier at 0840. She is dysphoric over her K+ restriction, and inpt status, bu t declines to give a lot of concrete details. Pain control is stable. BP 180/78 | Pulse 71 | Temp 36.7 C (98.1 F) (Oral) | Resp 18 | Ht 1.727 m (5' 8") | Wt 70.5 kg (155 lb 6.8 oz) | SpO2 94% | BMI 23.63 kg/m PE: unchanged. No edema, dressing is clear, dry and intact. Plan 1. HD x 5 hrs, 4K+ bath. 2. UF 3.5 kg. 3. I offered her an SSRI,but she is A&O x3, and declines. 4. Cont. PT. She is still adamant about not going to any Rehab. Ctr after DC. [facility] Scott Tadeo MD - 12/07/2018 8:56 AM PDT Patient with better pain control Vitals: 12/07/18 0735 BP: 156/78 Pulse: 65 Resp: 17 Temp: 36.2 C (97.2 F) Intake/Output Summary (Last 24 hours) at 12/07/18 0857 Last data filed at 12/07/18 0552 Gross per 24 hour Intake 1200 ml Output 200 ml Net 1000 ml on exam her hip dressings intact and dry Calves nontender Flex/ext feet well Recent Results (from the past 24 hour(s)) POC Glucose Result Value Ref Range Glucose, POC 142 (H) 70 - 109 mg/dL POC Glucose Result Value Ref Range Glucose, POC 183 (H) 70 - 109 mg/dL POC Glucose Result Value Ref Range Glucose, POC 126 (H) 70 - 109 mg/dL CBC no Differential Result Value Ref Range WBC 6.0 4.0 - 11.0 K/uL RBC 3.50 (L) 3.70 - 5.20 M/uL Hemoglobin 10.4 (L) 11.5 - 16.0 g/dL Hematocrit 33.5 (L) 34.0 - 47.0 % MCV 95.7 83.0 - 101.0 fL MCH 29.7 28.0 - 35.0 pg MCHC 31.0 (L) 32.0 - 36.0 g/dL RDW-CV 18.1 (H) <15.0 % RDW-SD 63.3 (H) 35.1 - 46.3 fL Platelet Count 177 140 - 440 K/uL MPV 9.7 6.5 - 12.4 fL % nRBC 0 0 - 2 per 100 WBC's Absolute nRBC 0.00 0.00 - 0.01 K/uL Extra Green Top Tube Result Value Ref Range Extra Green Top Tube Done POD 3 s/p cannulated screw fixation right hip garden one femoral neck fracture Continue PT Chronic renal failure end stage on hemodialysis - Dr. Muñoz help greatly appreciated Diabetes mellitus - spotty home monitoring of glucose - again reinforced importance of dominik gement for healing Anticoagulation - on lovenox Discharge planning - she doesn't want to do SNF - hasn't been up much with PT though and no t safe for discharge to home without enlisting help opi Muñoz DO - 12/06/2018 5:33 PM PDT [facility] [address] [facility], [place] [id number] PROGRESS NOTE Pt. Name/Age/: Ara Tilley 73 y.o. 1945 Med. Record Number: [id number] Date of admission: 12/04/2018 NEPHROLOGY HPI - (Patient seen at 0900). She is dysphoric about her hospital diet, and being inpatie nt. States that her hip pain is satisfactory. She is agreeable to having the Al DC'd. Lab Results Component Value Date POCGLU 183 (H) 12/06/2018 POCGLU 142 (H) 12/06/2018 POCGLU 129 (H) 12/06/2018 POCGLU 186 (H) 12/05/2018 EXAM: BP 177/75 | Pulse 68 | Temp 36.1 C (97 F) (Axillary) | Resp 16 | Ht 1.727 m (5' 8") | Wt 72.6 kg (160 lb) | SpO2 90% | BMI 24.33 kg/m Tmax 36.4 (no weight today) Intake/Output Summary (Last 24 hours) at 12/06/18 1733 Last data filed at 12/06/18 1549 Gross per 24 hour Intake 940 ml Output 150 ml Net 790 ml Heart: Regular rate and rhythm with no S3, S4, murmur or rub. Lungs: Prolonged expiratory phase, with findings of [place] rales lower 1/4 both lungs. Abdomen: Soft, obese, nontender, normoactive bowel sounds. Extremities: Right arm AVF has (+) bruit, no clubbing, no peripheral edema, dressing over r ight hip is clear and dry, intact. LAB: Recent Labs 12/05/18 0605 NA 139 K 4.4 CL 105 CO2 26 BUN 26* CREA 4.35* GFRNONAA 10* GLU 186* CALCIUM 8.6* PHOS 6.3* MG 2.1 Recent Labs 12/06/18 0549 12/04/18 1401 WBC 7.8 < > 10.5 HGB 10.3* < > 11.2* HCT 33.5* < > 35.9 PLT 183 < > 245 MCV 96.3 < > 95.0 NEUPCT -- -- 83.2* LYMPCT -- -- 10.8* MONPCT -- -- 3.6* EOSPCT -- -- 1.7 < > = values in this interval not displayed. Lab Results Component Value Date HBA1C 6.6 (H) 12/06/2018 Lab Results Component Value Date PTHINTACT 205 (H) 12/06/2018 Lab Results Component Value Date TSH 3.78 12/05/2018 No results found for: GLUF Lab Results Component Value Date IRON 14 (L) 12/05/2018 PCTSAT 9.7 (L) 12/05/2018 FERRITIN 441 (H) 12/05/2018 IMPRESSION 1. POD #2, s/p ORIF of right femoral neck fracture--progressing well. 2. 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 3. Type II DM--very good control by the most recent HbA1c? 4. CKD/MBD--good control by the most recent PTH. However, she could benefit from Renvela, AC & HS. 5. Anemia secondary to CKD--Hb is slowly falling. Will reinstitute some EPO to avoid a st eep arnie in her Hb. She appears to have some relative iron deficiency therefore, will begin IV Ferrlecit. 6. Chronic depression--has been present previously. PLAN 1. After discussion I agreed to relax her fluid restriction and diet restriction. 2. We will DC Al and allow her to use a bedside commode. 3. Continue PT, OT, and add IV Ferrlecit to her regimen. 4. She is evelin that she will not agree to go to an SNF and wishes to go home when felt ap propriate [facility] Scott Tadeo MD - 12/06/2018 8:02 AM PDT Pain control ok at rest She hasn't been up in PT yet Vitals: 12/06/18 0739 BP: 180/81 Pulse: 63 Resp: 16 Temp: 36.4 C (97.5 F) I/O last 3 completed shifts: In: 1745.6 [P.O.:1670; I.V.:25.6; IV Piggyback:50] Out: 4308 [Urine:600] No intake/output data recorded. On exam the hip dressings are intact and dry Calves nontender Flex/ext feet well Recent Results (from the past 24 hour(s)) POC Glucose Result Value Ref Range Glucose, POC 183 (H) 70 - 109 mg/dL POC Glucose Result Value Ref Range Glucose, POC 186 (H) 70 - 109 mg/dL CBC no Differential Result Value Ref Range WBC 7.8 4.0 - 11.0 K/uL RBC 3.48 (L) 3.70 - 5.20 M/uL Hemoglobin 10.3 (L) 11.5 - 16.0 g/dL Hematocrit 33.5 (L) 34.0 - 47.0 % MCV 96.3 83.0 - 101.0 fL MCH 29.6 28.0 - 35.0 pg MCHC 30.7 (L) 32.0 - 36.0 g/dL RDW-CV 18.5 (H) <15.0 % RDW-SD 64.3 (H) 35.1 - 46.3 fL Platelet Count 183 140 - 440 K/uL MPV 9.9 6.5 - 12.4 fL % nRBC 0 0 - 2 per 100 WBC's Absolute nRBC 0.00 0.00 - 0.01 K/uL Hemoglobin A1C Result Value Ref Range Hemoglobin A1c 6.6 (H) 4.3 - 6.0 % Estimated Average Glucose 143 mg/dL Parathyroid Hormone, Intact Result Value Ref Range PTH Intact 205 (H) 19 - 88 pg/mL POC Glucose Result Value Ref Range Glucose, POC 129 (H) 70 - 109 mg/dL PoD 2 s/p right hip cannulated screw fixation femoral neck fracture Mobilize with PT Flora Ortiz, PharmD - 12/05/2018 3:54 PM PDT PHARMACY SERVICES: ADMISSION MEDICATION REVIEW Ara Tilley is a 73 y.o. female admitted on 12/04/2018. Patient is somewhat a reliable historian. Location of Patient when reviewed: ED X Medical Floor Patient s prior to admit medication and over the counter (OTC) medications/herbal supplem ents list obtained from: X Verbal interview X Patient able to recall SOME Name, strength, and directions X Pharmacy list names: [facility] ([facility]) X Outside Information Vaccines up to date? Yes No Unsure Influenza X Pneumococcal X Tdap X Shingles X Noted medications discrepancies or medication-related issues: Medication added: Medication: Prior to Admission Sig: Patient taking differently as: Aspirin 81 mg EC tablet Take 1 tablet by mouth daily Gabapentin 100 mg capsule Take 2 capsules by mouth every morning Patient states she is taki ng but unsure of how much and how often Gabapentin 100 mg capsule Take 1 capsule by mouth at noon Patient states she is taking but unsure of how much and how often Losartan 100 mg tablet Take 1 tablet by mouth daily Albuterol 90 mcg/puff inhaler Inhale 2 puffs into the lungs 4 times daily Montelukast 10 mg tablet Take 1 tablet by mouth at night, for asthma/allergies Lidocaine-prilocaine (EMLA) cream Apply 1 application topically daily Hydrophilic ointment Apply 1 application topically daily Artificial tears solution Place 1-2 drops into both eyes as needed for dry eyes Removed therapy: Medication: Prior to Admission Sig: Reason for Removal: Artificial tears (Akwa tears) Place into both eyes every hour as needed for dry eyes Therap y complete Aspirin 325 mg tablet Take 1 tablet by mouth daily Incorrect dose Calcium-vitamin D (Calcium 600-D) 600 mg-400 units per tab Take 1 tablet by mouth 2 times d aily Therapy complete Gabapentin 100 mg capsule Take 2 capsules by mouth 3 times daily, take 2 capsules by mouth every morning and take 2 capsules every evening and take 1 capsule at noon if needed for ne uropathy. Incorrect sig Loratadine 10 mg tablet Take 1 tablet by mouth daily as needed Therapy complete Losartan 25 mg tablet Take 1 tablet by mouth daily Incorrect dose Recreational Substances, Tobacco & Alcohol use : Patient states she does not use Recreational, Tobacco, and Alcohol substances Other: Patient did not want to answer medication history appliance technician's questions; barely ignacioifel d her name. Answered questions with head nods or patients stating that she was not taking a medication. Medication: Prior to Admission Sig: Patient taking differently DRAW END HAND as: Atorvastatin 20 mg tablet Take 1 tablet by mouth at night Patient not taking, states that h er Dr told her not to, could not give me name of the provider Doxercalciferol (Hectorol) 2 mcg/ml injection Inject 0.5 mcg into the veins 3 times daily P atient states she has never taken this medication Epoetin Karthik (Procrit) 10,000 units/ml inj Inject 1 ml under the skin 3 times weekly Patien t states she has never taken this medication Hydrocodone-Acetaminophen 5-325 mg tablet Take 1-2 tablets by mouth every 6 hours as needed Last filled 11/23/18 #10 Patient states she hasn't filled and is not taking Insulin Glargine (Lantus solostar) 100 units/ml Inject 12 units under the skin at night Pat ient states she is not taking, but did not say why Unable to find: Codoexomer Iodine 0.9 % gel Apply a small amount to affected area as directed during dressi ng changes Patient had no idea what this medication was Best possible DRAW END HAND medication list after pharmacy review: PT REPORTED TAKING NOT TAKING Medication Sig Last Dose Dispense Doc. Provider albuterol 90 mcg/puff inhaler Inhale 2 puffs into the lungs 4 times daily as needed for Sh ortness of Breath. Taking Historical ProviderMD ARTIFICIAL TEAR SOLUTION OP Place 1-2 drops into both eyes as needed (for dry eyes). Renita barreto Historical ProviderMD aspirin 81 mg EC tablet Take 81 mg by mouth Daily. Taking Historical ProviderMD atorvaSTATin (LIPITOR) 20 mg tablet Take 20 mg by mouth nightly. Not Taking Historical Pr MD devi b complex-vitamin c-folic acid (NEPHRO-MANUEL) tablet Take 1 tablet by mouth Daily. Taking Historical ProviderMD cholecalciferol (VITAMIN D-3) 2000 units TABS Take 2,000 Units by mouth Daily. Taking His torical Provider, doxercalciferol (HECTOROL) 2 mcg/mL injection Inject 0.5 mcg into the vein Three times a w [place]. Historical ProviderMD epoetin karthik (EPOGEN, PROCRIT) 10,000 units/mL injection Inject 10,000 Units under the ski n Three times a week. Historical ProviderMD furosemide (LASIX) 80 mg tablet Take 1 tablet by mouth Daily. Taking 50 tablet Edison avila MD gabapentin (NEURONTIN) 100 mg capsule Take 200 mg by mouth every morning. Historical Pro MD kimberlee gabapentin (NEURONTIN) 100 mg capsule Take 100 mg by mouth Daily. At noon Historical Pro kimberlee MD Glucose Blood (TRUE METRIX BLOOD GLUCOSE TEST ) by In Vitro route. Historical Provider MD HYDROcodone-acetaminophen (NORCO) 5-325 mg per tablet Take 1-2 tablets by mouth every 6 ho urs as needed. 5 tablet Heather Navarro MD hydrophilic ointment Apply 1 Application topically Daily. For dry skin Taking Historical MD Jesica insulin glargine (LANTUS SOLOSTAR) 100 units/mL injection (pen) Inject 12 Units under the skin nightly. Historical MD Jesica Insulin Pen Needle 31G X 5 MM MISC by Does not apply route. Historical ProviderMD labetalol (NORMODYNE) 200 mg tablet Take 1 tablet by mouth 2 times daily. Taking 100 table t Edison Keys MD Lancets MISC by Does not apply route. Historical ProviderMD levothyroxine (SYNTHROID, LEVOTHROID) 75 MCG tablet Take 75 mcg by mouth every morning (be fore breakfast). Taking Historical ProviderMD lidocaine-prilocaine (EMLA) cream Apply 1 Application topically Daily. To access 1 hour pr ior to dialysis Taking Historical Provider, losartan (COZAAR) 100 MG tablet Take 1 tablet by mouth Daily. Taking Gopi Muñoz DO montelukast (SINGULAIR) 10 mg tablet Take 10 mg by mouth nightly. For asthma or allergies Taking Historical ProviderMD olopatadine (PATANOL) 0.1% ophthalmic solution Place 1-2 drops into both eyes 2 times maite y. Taking Historical ProviderMD pantoprazole (PROTONIX) 40 mg tablet Take 40 mg by mouth every morning (before breakfast). Taking Historical ProviderMD UNABLE TO FIND Med Name: Cadoexomer Iodine 0.9 % gel. Apply a small amount to affected ar ea as directed during dressing changes. Simran Mooney MD Medication review performed and electronically signed by Kerry Jordan, Under Baster 12/05/2018 14:45 Reviewed by Flora Watts, PharmD 12/05/2018 15:51 Scott Tadeo MD - 12/05/2018 7:41 AM PDT Patient feels better than yest Vitals: 12/05/18 0731 BP: 152/71 Pulse: 67 Resp: 16 Temp: 36.4 C (97.6 F) Intake/Output Summary (Last 24 hours) at 12/05/18 0741 Last data filed at 12/05/18 0439 Gross per 24 hour Intake 1115 ml Output 455 ml Net 660 ml on exam right hip dressings intact and dry Calves nontender Flex/ext feet well Recent Results (from the past 24 hour(s)) CBC with Differential Result Value Ref Range WBC 10.5 4.0 - 11.0 K/uL RBC 3.78 3.70 - 5.20 M/uL Hemoglobin 11.2 (L) 11.5 - 16.0 g/dL Hematocrit 35.9 34.0 - 47.0 % MCV 95.0 83.0 - 101.0 fL MCH 29.6 28.0 - 35.0 pg MCHC 31.2 (L) 32.0 - 36.0 g/dL RDW-CV 18.2 (H) <15.0 % RDW-SD 62.9 (H) 35.1 - 46.3 fL Platelet Count 245 140 - 440 K/uL MPV 9.8 6.5 - 12.4 fL % Neutrophils 83.2 (H) 45.0 - 82.0 % % Lymphocytes 10.8 (L) 20.0 - 45.0 % % Monocytes 3.6 (L) 4.0 - 12.0 % % Eosinophils 1.7 0.0 - 5.0 % % Basophils 0.2 0.0 - 1.0 % % Immature Granulocytes 0.5 (H) 0.0 - 0.4 % Absolute Neutrophils 8.69 (H) 1.80 - 8.50 K/uL Absolute Lymphocytes 1.13 0.60 - 3.20 K/uL Absolute Monocytes 0.38 0.00 - 1.00 K/uL Absolute Eosinophils 0.18 0.00 - 0.40 K/uL Absolute Basophils 0.02 0.00 - 0.10 K/uL Absolute Immature Granulocytes 0.05 (H) 0.00 - 0.03 K/uL % nRBC 0 0 - 2 per 100 WBC's Absolute nRBC 0.00 0.00 - 0.01 K/uL Comprehensive Metabolic Panel Result Value Ref Range Na 138 136 - 145 mmol/L K 3.4 3.4 - 5.1 mmol/L Cl 103 98 - 107 mmol/L CO2 29 20 - 31 mmol/L Anion Gap 6 3 - 16 mmol/L Glucose 187 (H) 60 - 106 mg/dL BUN 19 9 - 23 mg/dL Creatinine 3.97 (H) 0.55 - 1.02 mg/dL eGFR if not 11 (L) >=60 mL/min/1.73m2 Ca 8.6 (L) 8.7 - 10.4 mg/dL Albumin 3.2 3.2 - 4.8 g/dL Bilirubin Total 0.6 0.3 - 1.2 mg/dL Total Protein 6.5 5.7 - 8.2 g/dL AST 19 0 - 34 U/L ALT 12 10 - 49 U/L Alkaline Phosphatase 64 46 - 116 U/L Globulin 3.3 2.1 - 3.8 g/dL Albumin/Globulin Ratio 1.0 0.8 - 1.9 BUN/Creatinine Ratio 4.8 PTT Result Value Ref Range PTT 32 22 - 36 seconds Protime INR Result Value Ref Range Protime 13.9 11.3 - 13.9 seconds INR 1.1 0.9 - 1.1 Procalcitonin Result Value Ref Range Procalcitonin 0.09 <=0.50 ng/mL Comment POC Glucose Result Value Ref Range Glucose, POC 128 (H) 70 - 109 mg/dL POC Glucose Result Value Ref Range Glucose, POC 164 (H) 70 - 109 mg/dL POC Glucose Result Value Ref Range Glucose, POC 209 (H) 70 - 109 mg/dL CBC no Differential Result Value Ref Range WBC 8.9 4.0 - 11.0 K/uL RBC 3.77 3.70 - 5.20 M/uL Hemoglobin 11.3 (L) 11.5 - 16.0 g/dL Hematocrit 35.7 34.0 - 47.0 % MCV 94.7 83.0 - 101.0 fL MCH 30.0 28.0 - 35.0 pg MCHC 31.7 (L) 32.0 - 36.0 g/dL RDW-CV 18.3 (H) <15.0 % RDW-SD 62.9 (H) 35.1 - 46.3 fL Platelet Count 232 140 - 440 K/uL MPV 10.7 6.5 - 12.4 fL Immature Platelet Fraction 2.9 0.9 - 11.2 % % nRBC 0 0 - 2 per 100 WBC's Absolute nRBC 0.00 0.00 - 0.01 K/uL Basic Metabolic Panel Result Value Ref Range Na 139 136 - 145 mmol/L K 4.4 3.4 - 5.1 mmol/L Cl 105 98 - 107 mmol/L CO2 26 20 - 31 mmol/L Anion Gap 8 3 - 16 mmol/L Glucose 186 (H) 60 - 106 mg/dL BUN 26 (H) 9 - 23 mg/dL Creatinine 4.35 (H) 0.55 - 1.02 mg/dL eGFR if not 10 (L) >=60 mL/min/1.73m2 Ca 8.6 (L) 8.7 - 10.4 mg/dL BUN/Creatinine Ratio 6.0 Phosphorus Result Value Ref Range Phosphorus 6.3 (H) 2.4 - 5.1 mg/dL Magnesium Result Value Ref Range Magnesium 2.1 1.6 - 2.6 mg/dL POD 1 s/p percutaneous cannulated screw fixation right femoral neck fracture Mobilize with PT docu mented in this encounter H&P Notes Scott Brooks MD - 12/04/2018 3:05 PM PDTFormatting of this note might be different fro m the original. [facility] HISTORY AND PHYSICAL EXAMINATION Pt. Name/Age/: Ara Tilley 73 y.o. 1945 Date of admission: 12/04/2018 Admitting Physician: Scott Brooks Primary Care Physician: Francisca Womack Chief Complaint/Reason for Visit: Right hip pain History of Present Illness: 73 year old female fell about a week ago at home and landed on right hip - she was still ab le to walk but developed a bruise over the side of the right hip. Today she fell again at [facility] and this time with severe hip pain and inability to bear weight. She has no other areas o f pain complaint. She denies hitting her head and no LOC. She has chronic renal failure and is on hemodialysis - normally next dialysis is tomorrow. She denies any abdominal pain - she last ate about 5 hours ago a slice of pizza. She states that she is very hungry currently. She is diabetic, hypertension, CAD, history of breast cancer - does not take any blood thinn ers Past Medical History: Past Medical History: Diagnosis Date Anemia Arthritis Back pain Breast cancer (HCC) Cancer (HCC) Diabetes (HCC) Heart disease Hemodialysis patient (HCC) mon-wed-wed History of blood clots Hypercholesteremia Hypertension Hypothyroidism Renal failure Seasonal allergies Past Surgical History: Procedure Laterality Date APPENDECTOMY EYE SURGERY 2009 HYSTERECTOMY MASTECTOMY 2006 left ear NOSE SURGERY 2009 REMOVAL TUNNELED CATHETER Right 04/04/[address] Stephenson SHUNT PLACEMENT/INSERTION N/A 11/08/2017 Procedure: Tunneled Hemodialysis Catheter Placement; Surgeon: Nora Leo MD; Location : [facility] MAIN OR SHUNT PLACEMENT/INSERTION Right 02/04/2018 Procedure: INSERTION SHUNT HEMODIALYSIS W/ PERMACATH; Surgeon: Heather Navarro MD; L ocation: [facility] MAIN OR VEIN SURGERY Right 01/04/2018 Procedure: Right Transposed Basilic Vein to Proximal Radial Artery; Surgeon: Santos Stephenson MD, FACS; Location: [facility] MAIN OR Allergies: Allergies Allergen Reactions Lisinopril Pt states she does not remember what was the reaction she had to lisinopril. I asked her if it gave her a cough and she said "I cant remember, maybe it made me sick to my stomach". Naproxen Current Medications: No current facility-administered medications for this encounter. Current Outpatient Prescriptions Medication Sig Dispense Refill artificial tears (AKWA TEARS) ophthalmic ointment Place [...] TABS Take 2,000 Units by mouth Daily. doxercalciferol (HECTOROL) 2 mcg/mL injection Inject 0.5 mcg into the vein Three times a week. epoetin karthik (EPOGEN, PROCRIT) 10,000 units/mL injection Inject 1 mL under the skin Thr ee times a week. (Patient taking differently: Inject 4,000 Units into the vein Three times a week.) 0 furosemide (LASIX) 80 mg tablet Take [...] tablet Take 1-2 tablets by mouth every 6 hours as needed. 5 tablet 0 insulin glargine (LANTUS SOLOSTAR) 100 units/mL injection (pen) Inject 12 Units under t he skin nightly. Insulin [...] for Allergies . 30 tablet losartan (COZAAR) 100 MG tablet Take 1 tablet by mouth Daily. losartan (COZAAR) 25 mg tablet Take 1 [...] affected area as directed during dressing changes. Family History: Family History Problem Relation Age of Onset Diabetes Other grandfather Diabetes Other grandmother Cancer Sister Social History: Social History Social History Marital status: Single Spouse name: N/A Number of children: N/A Years of education: N/A Occupational History Not on file. Social History Main Topics Smoking status: Never Smoker Smokeless tobacco: Never Used Alcohol use No Drug use: No Sexual activity: Not on file Other Topics Concern Not on file Social History Narrative No narrative on file Review of Systems: ENT: poor vision CARDIAC denies chest pain or palpitations RESPIRATORY does have a cough GASTROINTESTINAL no abdominal pain GENITOURINARY denies dysuria NEURO neg PSYCH neg MUSCULOSKELETAL as above ENDOCRINE as above HEMATOLOGIC as above SKIN no rashes or skin lesions CONSTITUITIONAL/SYSTEMIC no fevers, chills or sweats Exam: Vitals: 12/04/18 1443 BP: 195/83 Pulse: 74 Resp: Temp: Admission Weight: Weight: 72.6 kg (160 lb) BMI: Body mass index is 24.33 kg/m. Physical Examination: General: Alert, oriented, in distress due to right hip pain - 15 out of 10 HEENT: Normocephalic, atraumatic Cardiovascular: Regular rate and rhythm, no murmurs Respiratory: Course breath sounds Abdomen: Soft, non-tender, non-distended, positive bowel sounds Extremities: Right hip with bruising laterally Pain with any attempt at movement Right knee/leg/ankle/foot nontender to palpation Left lower extremity nontender to palpation and log roll Both feet warm - intact light touch sensation Recent Results (from the past 24 hour(s)) CBC with Differential Result Value Ref Range WBC 10.5 4.0 - 11.0 K/uL RBC 3.78 3.70 - 5.20 M/uL Hemoglobin 11.2 (L) 11.5 - 16.0 g/dL Hematocrit 35.9 34.0 - 47.0 % MCV 95.0 83.0 - 101.0 fL MCH 29.6 28.0 - 35.0 pg MCHC 31.2 (L) 32.0 - 36.0 g/dL RDW-CV 18.2 (H) <15.0 % RDW-SD 62.9 (H) 35.1 - 46.3 fL Platelet Count 245 140 - 440 K/uL MPV 9.8 6.5 - 12.4 fL % Neutrophils 83.2 (H) 45.0 - 82.0 % % Lymphocytes 10.8 (L) 20.0 - 45.0 % % Monocytes 3.6 (L) 4.0 - 12.0 % % Eosinophils 1.7 0.0 - 5.0 % % Basophils 0.2 0.0 - 1.0 % % Immature Granulocytes 0.5 (H) 0.0 - 0.4 % Absolute Neutrophils 8.69 (H) 1.80 - 8.50 K/uL Absolute Lymphocytes 1.13 0.60 - 3.20 K/uL Absolute Monocytes 0.38 0.00 - 1.00 K/uL Absolute Eosinophils 0.18 0.00 - 0.40 K/uL Absolute Basophils 0.02 0.00 - 0.10 K/uL Absolute Immature Granulocytes 0.05 (H) 0.00 - 0.03 K/uL % nRBC 0 0 - 2 per 100 WBC's Absolute nRBC 0.00 0.00 - 0.01 K/uL Comprehensive Metabolic Panel Result Value Ref Range Na 138 136 - 145 mmol/L K 3.4 3.4 - 5.1 mmol/L Cl 103 98 - 107 mmol/L CO2 29 20 - 31 mmol/L Anion Gap 6 3 - 16 mmol/L Glucose 187 (H) 60 - 106 mg/dL BUN 19 9 - 23 mg/dL Creatinine 3.97 (H) 0.55 - 1.02 mg/dL eGFR if not 11 (L) >=60 mL/min/1.73m2 Ca 8.6 (L) 8.7 - 10.4 mg/dL Albumin 3.2 3.2 - 4.8 g/dL Bilirubin Total 0.6 0.3 - 1.2 mg/dL Total Protein 6.5 5.7 - 8.2 g/dL AST 19 0 - 34 U/L ALT 12 10 - 49 U/L Alkaline Phosphatase 64 46 - 116 U/L Globulin 3.3 2.1 - 3.8 g/dL Albumin/Globulin Ratio 1.0 0.8 - 1.9 BUN/Creatinine Ratio 4.8 PTT Result Value Ref Range PTT 32 22 - 36 seconds Protime INR Result Value Ref Range Protime 13.9 11.3 - 13.9 seconds INR 1.1 0.9 - 1.1 xrays right hip reviewed by me and show a garden one femoral neck fracture Assessment and Plan: Garden one right femoral neck fracture The natural history and treatment options discussed with her Plan percutaneous cannulated screw fixation right femoral neck fracture The goals of the procedure with the inherent risks and reasonable expectations for recovery all outlined She understands and agrees with plan Scott Brooks MD do cumented in this encounter Consult Notes Gopi Muñoz, DO - 12/05/2018 5:06 PM PDT [address] [place] [address] NEPHROLOGY CONSULT Pt. Name/Age/: Ara Tilley 73 y.o. 1945 Med. Record Number: [id number] Date of admission: 12/04/2018 Reason for consultation: ESRD Referring Provider: Tarah Segal MD HPI: (Pt seen at 0900). Asked to follow this pleasant, 73 YO female who h ad a ground level fall yesterday and sustained closed Fx of her Right femoral neck. Came t o the ER and was promptly taken to the OR by Dr. Scott Brooks where she underwent an uncomp licated , successful ORIF of the right hip. She is seen on HD with [facility] this AM on 3 [address] Manuel t, is conversant and in NAD. She has minimal pain when sitting up only. States that she cortés s been attending all her prescribed txs at the [facility], recently. Perfecto Kinga maradiaga was rounding there in October, and the overlock operator, Aleta Day RN, advised me on mult iple occasions that she had absenteeism or truncated tx, AMA. PAST MEDICAL HISTORY: 1. ESRD 2 diabetic glomerulosclerosis with the patient beginning Inpt HD in 11/03/2017 and then was DC to the [facility] at [place], [place]. Unfortunately, she h as had intermittent periods where she would take unexplained Holidays form her HD txs, AMA, and then, return. However, she states that she has been attending all prescribed txs recentl y and dialyzed last Wed., 12/02/18. 2. Type 2 DM x 30 years per the pt with retinopathy, nephropathy, and possibly neuropathy . 3. Hypertension x 10 years per the pt. 4. Anemia 2 to CKD treated with EPO, and IV Fe. 5. CKD/MBD 2to CKD treated with Renvela, and Hectorol in the past. However, she cortés d intermittently been noncompliant with her Renvela and other meds. 6. Hyperlipidemia treated with a statin Rx, unknownduration per the pt. 7. Hypothyroidism, of unknown duration, she is not completely sure. PAST SURGICAL HISTORY: 1. DAYNE with incidental appendectomy, in her "30's." 2. Tonsillectomy, ~age 11. 3. Laser Surgery , both eyes, last 2015, per the pt. 4. Construction of Right arm AVF, 01/04/2018 , Dr. Santos Stephenson. 5. Placement of tunneled Right IJ HD catheter, 11/08/2017, Dr. Nora Leo. Outpatient Prescriptions Marked as Taking for the 12/04/18 encounter (Hospital Encounter) Medication Sig Dispense Refill albuterol 90 mcg/puff inhaler Inhale 2 puffs into the lungs 4 times daily as needed for Shortness of Breath. ARTIFICIAL TEAR SOLUTION OP Place 1-2 drops into both eyes as needed (for dry eyes). [DISCONTINUED] artificial tears (AKWA TEARS) ophthalmic ointment Place into both eyes every hour as needed for Dry Eyes. aspirin 81 mg EC tablet Take 81 mg by mouth Daily. b complex-vitamin c-folic acid (NEPHRO-MANUEL) tablet Take 1 tablet by mouth Daily. [DISCONTINUED] calcium-vitamin D (CALCIUM 600-D) 600 mg-400 units per tablet Take 1 tab let by mouth 2 times daily. cholecalciferol (VITAMIN D-3) 2000 units TABS Take 2,000 Units by mouth Daily. epoetin karthik (EPOGEN, PROCRIT) 10,000 units/mL injection Inject 10,000 Units under the skin Three times a week. furosemide (LASIX) 80 mg tablet Take 1 tablet by mouth Daily. 50 tablet 0 hydrophilic ointment Apply 1 Application topically Daily. For dry skin labetalol (NORMODYNE) 200 mg tablet Take 1 tablet by mouth 2 times daily. 100 tablet 0 levothyroxine (SYNTHROID, LEVOTHROID) 75 MCG tablet Take 75 mcg by mouth every morning (before breakfast). lidocaine-prilocaine (EMLA) cream Apply 1 Application topically Daily. To access 1 hour prior to dialysis losartan (COZAAR) 100 MG tablet Take 1 tablet by mouth Daily. montelukast (SINGULAIR) 10 mg tablet Take 10 mg by mouth nightly. For asthma or allergi es olopatadine (PATANOL) 0.1% ophthalmic solution Place 1-2 drops into both eyes 2 times d aily. pantoprazole (PROTONIX) 40 mg tablet Take 40 mg by mouth every morning (before breakfas t). Allergies Allergen Reactions Lisinopril Pt states she does not remember what was the reaction she had to lisinopril. I asked her if it gave her a cough and she said "I cant remember, maybe it made me sick to my stomach". Naproxen SOCIAL HISTORY: Smoking: Doesn't smoke tobacco, but smokes cannabis almost daily. ETOH: denies. Single; lives independently, in [place]. FAMILY HISTORY: Father: in his 70's of AMI, also had Type 2 DM, PAD, and was s/p bilateralBKA's. Mother: of cxs of ESRD from Type2 DM, and also had HBP. 5 Brothers: 2 as infants, 2 are alive and in good health, and 1 is alive but has DJD in his legs. 3 Sisters: 1 at age 21 of a "ruptured intraabdominalorgan." 1 sister is alive and has Type 2 DM, the 3rd Sister is alive, but has CKD from Type 2 DM. REVIEW OF SYSTEMS: General: She denies fatigue, fever, night sweats, or weight loss in the last 6 months. HEENT: She denies headache, diplopia, blurred vision, epistaxis, sinusitis, or pharyngitis . Cardiovascular: She denies chest pain, palpitations, orthopnea, or PND. Pulmonary: She denies cough, hemoptysis, wheezing, or shortness of breath. GI: She denies nausea vomiting, epigastric pain, melena, hematemesis, hematochezia, or monique nge in bowel habits. : She denies dysuria, hematuria, frequency, flank pain, or nocturia. Endocrine: She denies polydipsia, polyuria, temperature intolerance, or thyroid disorders. Hematologic: She denies rashes, purpura, bleeding gums, or easy bruising. Musculoskeletal: She denies joint pain, arthralgias, synovitis, or any new deformity. Neuropsychiatric: She denies seizures, syncope, depression, or suicidal ideation. PHYSICAL EXAMINATION: BP 170/75 | Pulse 62 | Temp 37.3 C (99.1 F) (Oral) | Resp 20 | Ht 1.727 m (5' 8") | Wt 72.6 kg (160 lb) | SpO2 96% | BMI 24.33 kg/m Intake/Output Summary (Last 24 hours) at 12/05/18 1713 Last data filed at 12/05/18 1615 Gross per 24 hour Intake 880.6 ml Output 4163 ml Net -3282.4 ml General: This is a thin, elderly appearing 73 year-old female who is alert an d oriented x3, and in NAD. HEENT: Normocephalic. Pupils are 2.5 mm / 2.5 mm and reactive. EOMI. Fundoscopic exam was not performed. Posterior pharynx is clear, without injection. Neck: JVP's are < 7 cm at 45, no thyromegaly. Cardiovascular: Regular rate and rhythm, with grade 1-2/6 mid-AYDI at LSB, no S3, S4, or rub. Lungs: (+) fine inspiratory rales bilaterally at lower 1/2 both lung gaytan, no wheeze. Abdominal: Soft, flat, nontender, NABS, no organomegaly, no guarding, no bruit. Extremities: 1-2+ edema, clubbing, cyanosis, or asterixis. Dressing over Right hip is dry and in tact. Neurological: Nonfocal, nonlateralizing. SpO2: 95 % on 1liters/minute nasal cannula CXR: (+) CM, bilateral alveolar, IS edema? Lab Results Component Value Date NA 139 12/05/2018 K 4.4 12/05/2018 CL 105 12/05/2018 CO2 26 12/05/2018 BUN 26 (H) 12/05/2018 CREA 4.35 (H) 12/05/2018 GFRNONAA 10 (L) 12/05/2018 GLU 186 (H) 12/05/2018 CALCIUM 8.6 (L) 12/05/2018 PHOS 6.3 (H) 12/05/2018 MG 2.1 12/05/2018 Lab Results Component Value Date WBC 8.9 12/05/2018 HGB 11.3 (L) 12/05/2018 HCT 35.7 12/05/2018 PLT 232 12/05/2018 MCV 94.7 12/05/2018 NEUPCT 83.2 (H) 12/04/2018 LYMPCT 10.8 (L) 12/04/2018 MONPCT 3.6 (L) 12/04/2018 EOSPCT 1.7 12/04/2018 No results found for: TACROLIMUS IMPRESSION 1. ESRD from diabetic glomerulosclerosis-- on thrice weekly HD. 2. POD#1, s/p ORIF of Right hip-- progressing well. 3. Anemia 2 to CKD-- will resume EPO, 3 x weekly, and recheck her Fe levels. 5. Type 2 DM-- she does state that she has Not been using any insulin, and I am honesty skeptical whether she has been pursuing any glucoscans?? 6. CKD/MBD-- will recheck a iPTH. 7. Hypothyroidism-- needs a repeat TSH, as well. PLAN 1. HD x 5hrs, 4K+, 35 HCO3 bath, UF 3.5 kg, QB 350. 2. She is adamant about having a low K+, general diet. 3. She is argumentative about glucoscans, but I discussed with her that she is a karla fid e Type 2 Diabetic, and these are necessary to ensure a good outcome after her ORIF. 4. GI and DVT prophylaxis have already ordered by Dr. Brooks. 5. Check Fe levels, TSH, and iPTH. Thank you for the chance to see this very interesting patient. Will follow the patient kisha h you. [facility] CC: [facility], [place], [place]. Scott Brooks MD [facility], [place] im, MD Haris - 12/04/2018 2:51 PM PDT [facility] HOSPITALIST CONSULT NOTE Patient: Ara Tilley : 1945: Age: 73 y.o. MedRec: [id number] Admission date: 12/04/2018 Hospital day # : 0 Physician author: Haris Segal MD Today: 12/04/2018 ASSESSMENT Active Problem, present on admission: Active Hospital Problems Diagnosis Closed right hip fracture Non-compliance Resolved Hospital Problems Diagnosis No resolved problems to display. RECOMMENDATIONS Right hip fx Cbc in am PENDING UA (PRIOR ECOLI UTI hx) Hold home ASA Dr Brooks TO OR Left PLEURAL EFFUSION/sinus congestion Likely fluid overload and bronchitis Pending procal / sputum cx duoneb x 2 then prn / IS / PEP / mucinex Lasix 40 IV pre-op Noncompliance with HD Anticipate periop abx HTN Metoprolol PRN Home Statin / labetolol Control pain ESRD HD mwf Bmp phos ca Mag in am DM2 Decrease lantus 12 to 5 Qpm for now SSI Hypothyroid/depfressed DM GS AVF Right Noncompliant Does not recall many things Improved mood w/ son presence DVT Prophylaxis SCD ANTICIPATE Diet DM Disposition OR REASON FOR CONSULT: DR BROOKS REQUESTS MEDICAL MANAGEMENT IN PATIENT W/ RIGHT HIP FRACTURE HISTORY OF PRESENT ILLNESS: Ara Tilley is a 73 y.o. female with a history of ESRD/DM/HTN/noncompliance, presen rich on 12/04/2018, GLF, tripped landing on right hip this morning, pain with right weight angela ring. COUGH FOR 2 MONTHS, unclear Hospitalization course to date BP 195/83 on RA HR 74 COARSE BREATH SOUNDS Hg 11.2, k 3.4, 3.97, cxr left pleural effusion/pulm edema DILAUDID / FENT Relevant Chart Review 10/31/18 Amira left AMA from HD for over 30 days 08/2018 [facility] hypervolemia hospitalization 06/2018 [facility] PNA LLL hospitalzation 05/2018 Amira noncompliant w/ HTN medications. Questionable insulin use. REVIEW OF SYSTEMS: She indicates that she went to HD Wednesday Poor historian, Mostly answers, "it's in the chart" PAST MEDICAL and SURGICAL HISTORY: Past Medical History: Diagnosis Date Anemia Arthritis Back pain Breast cancer (HCC) Cancer (HCC) Diabetes (HCC) Heart disease Hemodialysis patient (HCC) wed-wed-wed History of blood clots Hypercholesteremia Hypertension Hypothyroidism Renal failure Seasonal allergies Past Surgical History: Procedure Laterality Date APPENDECTOMY EYE SURGERY 2009 HYSTERECTOMY MASTECTOMY 2006 left ear NOSE SURGERY 2009 REMOVAL TUNNELED CATHETER Right 04/04/[address] Stephenson SHUNT PLACEMENT/INSERTION N/A 11/08/2017 Procedure: Tunneled Hemodialysis Catheter Placement; Surgeon: Nora Leo MD; Location : [facility] MAIN OR SHUNT PLACEMENT/INSERTION Right 02/04/2018 Procedure: INSERTION SHUNT HEMODIALYSIS W/ PERMACATH; Surgeon: Heather Navarro MD; L ocation: [facility] MAIN OR VEIN SURGERY Right 01/04/2018 Procedure: Right Transposed Basilic Vein to Proximal Radial Artery; Surgeon: Santos Stephenson MD, FACS; Location: [facility] MAIN OR Patient Active Problem List Diagnosis Anemia Arthritis Back pain History of blood clots Cancer Heart disease Hypertension Seasonal allergies Diabetes - INSULIN Control Hypercholesteremia Depressive disorder, not elsewhere classified 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 Facial cellulitis Hypothyroidism 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 Provider artificial tears (AKWA TEARS) ophthalmic ointment Place into both eyes every hour as need ed for Dry Eyes. Historical ProviderMD aspirin 325 mg tablet Take 325 mg by mouth Daily. Historical ProviderMD atorvaSTATin (LIPITOR) 20 mg tablet Take 20 mg by mouth nightly. Historical ProviderMD b complex-vitamin c-folic acid (NEPHRO-MANUEL) tablet Take 1 tablet by mouth Daily. Histor ical MD Jesica calcium-vitamin D (CALCIUM 600-D) 600 mg-400 units per tablet Take 1 tablet by mouth 2 dutch es daily. Historical ProviderMD cholecalciferol (VITAMIN D-3) 2000 units TABS Take 2,000 Units by mouth Daily. Manuelica l ProviderMD doxercalciferol (HECTOROL) 2 mcg/mL injection Inject 0.5 mcg into the vein Three times a w [place]. Historical ProviderMD epoetin karthik (EPOGEN, PROCRIT) 10,000 units/mL injection Inject 1 mL under the skin Three times a week. Patient taking differently: Inject 4,000 Units into the vein Three times a we ek. Mayelin Vega MD furosemide (LASIX) 80 mg tablet Take 1 tablet by mouth Daily. 50 tablet Edison Keys MD gabapentin (NEURONTIN) 100 mg capsule Take 200 mg by mouth 3 times daily. Take Two (2) cap sules by mouth every morning and take Two (2) capsules every evening and take one (1)capsule at noon if needed for Neuropathy - per Med list received from Dr. Womack office 12/30/17. Historical ProviderMD Glucose Blood (TRUE METRIX BLOOD GLUCOSE TEST ) by In Vitro route. Historical Provider MD HYDROcodone-acetaminophen (NORCO) 5-325 mg per tablet Take 1-2 tablets by mouth every 6 ho urs as needed. 5 tablet Heather Navarro MD insulin glargine (LANTUS SOLOSTAR) 100 units/mL injection (pen) Inject 12 Units under the skin nightly. Historical MD Jesica Insulin Pen Needle 31G X 5 MM MISC by Does not apply route. Historical ProviderMD labetalol (NORMODYNE) 200 mg tablet Take 1 tablet by mouth 2 times daily. 100 tablet Edison Keys MD Lancets MISC by Does not apply route. Historical ProviderMD levothyroxine (SYNTHROID, LEVOTHROID) 75 MCG tablet Take 75 mcg by mouth every morning (be fore breakfast). Historical Provider, loratadine (CLARITIN) 10 mg tablet Take 1 tablet by mouth Daily as needed for Allergies. 30 tablet Edison Keys MD losartan (COZAAR) 100 MG tablet Take 1 tablet by mouth Daily. Gopi Muñoz, losartan (COZAAR) 25 mg tablet Take 1 tablet by mouth Daily. Patient taking differently: Take 100 mg by mouth Daily. 50 tablet Edison Keys MD olopatadine (PATANOL) 0.1% ophthalmic solution Place 1 drop into both eyes 2 times daily. Historical Provider, pantoprazole (PROTONIX) 40 mg tablet Take 40 mg by mouth every morning (before breakfast). Historical Provider, UNABLE TO FIND Med Name: Cadoexomer Iodine 0.9 % gel. Apply a small amount to affected ar ea as directed during dressing changes. Historical Provider, ALLERGIES: SOCIAL HISTORY: FAMILY HISTORY: Allergies Allergen Reactions Lisinopril Pt states she does not remember what was the reaction she had to lisinopril. I asked her if it gave her a cough and she said "I cant remember, maybe it made me sick to my stomach". Naproxen reports that she has never smoked. She has never used smokeless tobacco. She reports that she does not drink alcohol or use drugs. family history includes Cancer in her sister; Diabetes in some other family members. VITAL SIGNS: Temp: 36.7 C (98 F), Pulse: 74, Resp: 20, BP: 195/83, SpO2 94 % on room air at flow rat e L/min Temp Min: 36.7 C (98 F) Max: 36.7 C (98 F) Weight: 72.6 kg (160 lb) PHYSICAL EXAMINATION: On room air Constitutional NAD / Lying flat, covering head c/o pain but resolves when son is at bedsi de, loose coarse cough Eye PERRL / EOMI / No scleral icterus, no injected eyes ENT hearing intact / no sinus congestion / NO THRUSH Neck supple Lymph node No overt lymphadenopathy Cardiac S1 S2 present / RRR / no MRG Lung Auscultation right / wheeze and coarse on left / Respiratory effort not labored speaki ng in full sentences without difficulty Abdomen active BS, Soft, NT / ND, no overt hernias Psych Mood and affect normal, alert and oriented x3 Neuro Moves all extremities, symmetrical face, no dysathria Extremities mild arvizu edema bilateral / ecchymosis right hip / +thrill right av fistula Skin No overt rash / no jaundice / NO INTERTRIGO DIAGNOSTIC STUDIES: Lab results last 24 hours Recent Results (from the past 24 hour(s)) CBC with Differential Collection Time: 12/04/18 14:01 Result Value Ref Range WBC 10.5 4.0 - 11.0 K/uL RBC 3.78 3.70 - 5.20 M/uL Hemoglobin 11.2 (L) 11.5 - 16.0 g/dL Hematocrit 35.9 34.0 - 47.0 % MCV 95.0 83.0 - 101.0 fL MCH 29.6 28.0 - 35.0 pg MCHC 31.2 (L) 32.0 - 36.0 g/dL RDW-CV 18.2 (H) <15.0 % RDW-SD 62.9 (H) 35.1 - 46.3 fL Platelet Count 245 140 - 440 K/uL MPV 9.8 6.5 - 12.4 fL % Neutrophils 83.2 (H) 45.0 - 82.0 % % Lymphocytes 10.8 (L) 20.0 - 45.0 % % Monocytes 3.6 (L) 4.0 - 12.0 % % Eosinophils 1.7 0.0 - 5.0 % % Basophils 0.2 0.0 - 1.0 % % Immature Granulocytes 0.5 (H) 0.0 - 0.4 % Absolute Neutrophils 8.69 (H) 1.80 - 8.50 K/uL Absolute Lymphocytes 1.13 0.60 - 3.20 K/uL Absolute Monocytes 0.38 0.00 - 1.00 K/uL Absolute Eosinophils 0.18 0.00 - 0.40 K/uL Absolute Basophils 0.02 0.00 - 0.10 K/uL Absolute Immature Granulocytes 0.05 (H) 0.00 - 0.03 K/uL % nRBC 0 0 - 2 per 100 WBC's Absolute nRBC 0.00 0.00 - 0.01 K/uL Comprehensive Metabolic Panel Collection Time: 12/04/18 14:01 Result Value Ref Range Na 138 136 - 145 mmol/L K 3.4 3.4 - 5.1 mmol/L Cl 103 98 - 107 mmol/L CO2 29 20 - 31 mmol/L Anion Gap 6 3 - 16 mmol/L Glucose 187 (H) 60 - 106 mg/dL BUN 19 9 - 23 mg/dL Creatinine 3.97 (H) 0.55 - 1.02 mg/dL eGFR if not 11 (L) >=60 mL/min/1.73m2 Ca 8.6 (L) 8.7 - 10.4 mg/dL Albumin 3.2 3.2 - 4.8 g/dL Bilirubin Total 0.6 0.3 - 1.2 mg/dL Total Protein 6.5 5.7 - 8.2 g/dL AST 19 0 - 34 U/L ALT 12 10 - 49 U/L Alkaline Phosphatase 64 46 - 116 U/L Globulin 3.3 2.1 - 3.8 g/dL Albumin/Globulin Ratio 1.0 0.8 - 1.9 BUN/Creatinine Ratio 4.8 PTT Collection Time: 12/04/18 14:01 Result Value Ref Range PTT 32 22 - 36 seconds Protime INR Collection Time: 12/04/18 14:01 Result Value Ref Range Protime 13.9 11.3 - 13.9 seconds INR 1.1 0.9 - 1.1 Micro results Microbiology Results (72 hrs) No results found for the last 72 hours. Radiology results No results found. Electronically signed by: Haris Segal MD 12/04/2018 15:14 [facility] initial inpatient hospital time greater than 70 minutes with 1/2 spent on face to face ti me for assessment and plan -Medical Decision Maker Patient. Assessment and Plan were discussed with patient -[facility] Documentation I expect this patient will be hospitalized for 2 or more days and expect the post-hospital plan to be home. -I reviewed relevant imaging, EKG and old records. documented in this [facility] ED Notes Priti Burleson RN - 12/04/2018 1:40 PM PDTStates she tripped and fell this morning and l anded onto her right hip . Complains of severe pain with movement and weight bearing. Electr onically signed by Priti Burleson RN at 12/04/2018 1:41 PM Nick Viera MD - 9 1:40 PM PDT [facility] Ara Tilley Emergency Department Encounter Note [address] [place] [address] PCP:Francisca Womack PA-C [phone] CHIEF COMPLAINT: Chief Complaint Patient presents with Hip Pain ED Room: ED07/ED07 HPI Ara Tilley is a 73 y.o. female who presents to the Emergency Department with right hip pain. Patient had a ground level fall earlier today. Patient had a fall 1 week ago. She endorses 15 out of 10 pain with any range of motion of her right lower extremity. She denie s any numbness or tingling. PAST MEDICAL & SURGICAL HISTORY Past Medical History: Diagnosis Date Anemia Arthritis Back pain Breast cancer (HCC) Cancer (HCC) Diabetes (HCC) Heart disease Hemodialysis patient (HCC) wed-wed-wed History of blood clots Hypercholesteremia Hypertension Hypothyroidism Renal failure Seasonal allergies Past Surgical History: Procedure Laterality Date APPENDECTOMY EYE SURGERY 2008 HYSTERECTOMY MASTECTOMY 2006 left ear NOSE SURGERY 2009 REMOVAL TUNNELED CATHETER Right 04/04/[address] Stephenson SHUNT PLACEMENT/INSERTION N/A 11/08/2017 Procedure: Tunneled Hemodialysis Catheter Placement; Surgeon: Nora Loe MD; Location : [facility] MAIN OR SHUNT PLACEMENT/INSERTION Right 02/04/2018 Procedure: INSERTION SHUNT HEMODIALYSIS W/ PERMACATH; Surgeon: Heather Navarro MD; L ocation: [facility] MAIN OR VEIN SURGERY Right 01/04/2018 Procedure: Right Transposed Basilic Vein to Proximal Radial Artery; Surgeon: Santos Stephenson MD, FACS; Location: [facility] MAIN OR CURRENT MEDICATIONS Previous Medications ARTIFICIAL TEARS (AKWA TEARS) OPHTHALMIC OINTMENT Place into both eyes every hour as n eeded for Dry Eyes. ASPIRIN 325 MG TABLET Take 325 mg by mouth Daily. ATORVASTATIN (LIPITOR) 20 MG TABLET Take 20 mg by mouth nightly. B COMPLEX-VITAMIN C-FOLIC ACID (NEPHRO-MANUEL) TABLET Take 1 tablet by mouth Daily. CALCIUM-VITAMIN D (CALCIUM 600-D) 600 MG-400 UNITS PER TABLET Take 1 tablet by mouth 2 times daily. CHOLECALCIFEROL (VITAMIN D-3) 2000 UNITS TABS Take 2,000 Units by mouth Daily. DOXERCALCIFEROL (HECTOROL) 2 MCG/ML INJECTION Inject 0.5 mcg into the vein Three times a week. EPOETIN KARTHIK (EPOGEN, PROCRIT) 10,000 UNITS/ML INJECTION Inject 1 mL under the skin Thr ee times a week. FUROSEMIDE (LASIX) 80 MG TABLET Take 1 tablet by mouth Daily. GABAPENTIN (NEURONTIN) 100 MG CAPSULE Take 200 mg by mouth 3 times daily. Take Two (2) capsules by mouth every morning and take Two (2) capsules every evening and take one (1)caps ule at noon if needed for Neuropathy - per Med list received from Dr. Womack office 8. GLUCOSE BLOOD (TRUE METRIX BLOOD GLUCOSE TEST ) by In Vitro route. HYDROCODONE-ACETAMINOPHEN (NORCO) 5-325 MG PER TABLET Take 1-2 tablets by mouth every 6 hours as needed. INSULIN GLARGINE (LANTUS SOLOSTAR) 100 UNITS/ML INJECTION (PEN) Inject 12 Units under t he skin nightly. INSULIN PEN NEEDLE 31G X 5 MM MISC by Does not apply route. LABETALOL (NORMODYNE) 200 MG TABLET Take 1 tablet by mouth 2 times daily. LANCETS MISC by Does not apply route. LEVOTHYROXINE (SYNTHROID, LEVOTHROID) 75 MCG TABLET Take 75 mcg by mouth every morning (before breakfast). LORATADINE (CLARITIN) 10 MG TABLET Take 1 tablet by mouth Daily as needed for Allergies . LOSARTAN (COZAAR) 100 MG TABLET Take 1 tablet by mouth Daily. LOSARTAN (COZAAR) 25 MG TABLET Take 1 tablet by mouth Daily. OLOPATADINE (PATANOL) 0.1% OPHTHALMIC SOLUTION Place 1 drop into both eyes 2 times maite y. PANTOPRAZOLE (PROTONIX) 40 MG TABLET Take 40 mg by mouth every morning (before breakfas t). UNABLE TO FIND Med Name: Cadoexomer Iodine 0.9 % gel. Apply a small amount to affected area as directed during dressing changes. ALLERGIES Allergies Allergen Reactions Lisinopril Pt states she does not remember what was the reaction she had to lisinopril. I asked her if it gave her a cough and she said "I cant remember, maybe it made me sick to my stomach". Naproxen FAMILY AND SOCIAL HISTORY Family History Problem Relation Age of Onset Diabetes Other grandfather Diabetes Other grandmother Cancer Sister Social History Social History Marital status: Single Spouse name: N/A Number of children: N/A Years of education: N/A Social History Main Topics Smoking status: Never Smoker Smokeless tobacco: Never Used Alcohol use No Drug use: No Sexual activity: Not Asked Other Topics Concern None Social History Narrative None REVIEW OF SYSTEMS As in history of present illness. A 10 system review was otherwise negative. PHYSICAL EXAM VITAL SIGNS: (first vital signs):Temp: 36.7 C (98 F) Pulse: 62 Resp: 20 SpO2: 93 % BP: 193/73 Body mass index is 24.33 kg/m. Constitutional: female patient, uncomfortable appearing HEENT: Atraumatic, PERRL, Oropharynx benign. Neck: Supple with full range of motion. Respiratory: Good air movement bilaterally. No Wheezes, cough Cardiovascular: Normal S1 S2 Abdomen: Soft, nontender, nondistended Extremities: Exquisite tenderness of her right hip, pain with internal or external rotation of her right lower extremity, pedal pulse 2+, sensation intact Skin: Warm, Dry, No rashes Neurologic: Alert & oriented. Psychiatric: Normal mood, affect and judgement. EKG 12-lead EKG shows LABS Results for orders placed or performed during the hospital encounter of 12/04/18 CBC with Differential Result Value Ref Range WBC 10.5 4.0 - 11.0 K/uL RBC 3.78 3.70 - 5.20 M/uL Hemoglobin 11.2 (L) 11.5 - 16.0 g/dL Hematocrit 35.9 34.0 - 47.0 % MCV 95.0 83.0 - 101.0 fL MCH 29.6 28.0 - 35.0 pg MCHC 31.2 (L) 32.0 - 36.0 g/dL RDW-CV 18.2 (H) <15.0 % RDW-SD 62.9 (H) 35.1 - 46.3 fL Platelet Count 245 140 - 440 K/uL MPV 9.8 6.5 - 12.4 fL % Neutrophils 83.2 (H) 45.0 - 82.0 % % Lymphocytes 10.8 (L) 20.0 - 45.0 % % Monocytes 3.6 (L) 4.0 - 12.0 % % Eosinophils 1.7 0.0 - 5.0 % % Basophils 0.2 0.0 - 1.0 % % Immature Granulocytes 0.5 (H) 0.0 - 0.4 % Absolute Neutrophils 8.69 (H) 1.80 - 8.50 K/uL Absolute Lymphocytes 1.13 0.60 - 3.20 K/uL Absolute Monocytes 0.38 0.00 - 1.00 K/uL Absolute Eosinophils 0.18 0.00 - 0.40 K/uL Absolute Basophils 0.02 0.00 - 0.10 K/uL Absolute Immature Granulocytes 0.05 (H) 0.00 - 0.03 K/uL % nRBC 0 0 - 2 per 100 WBC's Absolute nRBC 0.00 0.00 - 0.01 K/uL Comprehensive Metabolic Panel Result Value Ref Range Na 138 136 - 145 mmol/L K 3.4 3.4 - 5.1 mmol/L Cl 103 98 - 107 mmol/L CO2 29 20 - 31 mmol/L Anion Gap 6 3 - 16 mmol/L Glucose 187 (H) 60 - 106 mg/dL BUN 19 9 - 23 mg/dL Creatinine 3.97 (H) 0.55 - 1.02 mg/dL eGFR if not 11 (L) >=60 mL/min/1.73m2 Ca 8.6 (L) 8.7 - 10.4 mg/dL Albumin 3.2 3.2 - 4.8 g/dL Bilirubin Total 0.6 0.3 - 1.2 mg/dL Total Protein 6.5 5.7 - 8.2 g/dL AST 19 0 - 34 U/L ALT 12 10 - 49 U/L Alkaline Phosphatase 64 46 - 116 U/L Globulin 3.3 2.1 - 3.8 g/dL Albumin/Globulin Ratio 1.0 0.8 - 1.9 BUN/Creatinine Ratio 4.8 PTT Result Value Ref Range PTT 32 22 - 36 seconds Protime INR Result Value Ref Range Protime 13.9 11.3 - 13.9 seconds INR 1.1 0.9 - 1.1 IMAGING STUDIES (X-Rays interpreted by ED Physician) Right femoral neck fracture ED COURSE & MEDICAL DECISION MAKING Pertinent Labs & Imaging studies were reviewed along with EMS notes and [facility] record s if applicable. (See chart for details) Medications and Allergy list reviewed. Nurses note and old records were reviewed The patient was seen and examined, Patient is a 73-year-old female who presents status post fall. X-ray revealed a right femo ral neck fracture. Dr. Brooks of orthopedic surgery was consulted. Recommended admission to the medicine service. Plan is to go to the OR possibly later today. The patient was giv en IV opiate medication. Last Set of Vital Signs: Temp: 36.7 C (98 F) Pulse: 74 Resp: 20 SpO2: 94 % BP: 195/83 FINAL IMPRESSION ICD-10-CM ICD-9-CM 1. Closed fracture of neck of right femur, initial encounter ([facility]) S72.001A 820.8 Nick Mendoza MD 12/04/18 1456 documented in this encou nter Miscellaneous Notes Plan of Care - Margaret Dempsey MSW - 12/10/2018 4:03 PM PDTProblem: Discharge Planning Goal: Patient will be discharged in a safe manner Outcome: Improving Spoke with patients RN'sRodrigue, the day after this patient discharged (Wednesday). This CM w as not the patient's CM yesterday upon discharge. Rodrigue requested that CM fax the [facility] HH or jorge over to [facility]. This CM faxed the order and chart notes to [facility] [phone] and requested that they follow up with patient. Fax came through [place]. Electronically signed b y: JENNIFER Perkins 12/10/2018 16:03 eICU Note - Luis Clark RN - 12/09/2018 4:52 PM PDTNo issues with HD today. UF goal of 3500 mls met. R ight AVF d accessed per policy and hemostasis achieved. lan of Care - Liam Horta RRT - 12/09/2018 11:31 AM PDTProblem: Patient Care Overview (Adult) Goal: Care Team Goals & Evaluation PROBLEM-RELATED GOALS: 1. Ara will have pain < 3/10 by 12/10/18. 2. Ara will have baseline strength/sensation by 12/10/18 3. Ara will have no S/S infection through 12/10/18 4. Ara will continue her home respiratory medications from formulary substitution as req uired by 12/10/18. Goal met. 5. Ara will maintain >92% Sats by 12/10/18 6. Ara will have treatment for airway clearance and atelectasis by 12/10/18. 7. Ara will be Mod I with ambulation in hallway by 12/13/18 8. Ara will be mod. I with functional t/fs in room by 12/15/18 STRATEGY TO ACHIEVE GOALS: - Assess pain - Assess sensation/strength - Assess S/S infection - Ara has Duonebs Q4H PRN for SOB. - Ara has oximetry checks and supplemental O2 as required for target Sats. - Ara has PEP therapy for airway clearance and atelectasis. - Ara will participate in PT activities - Ara will sit up in bed side chair for all meals. - Participation with OT POC. Outcome: Goal Achieved Date Met: 12/09/18 Goal Evaluation: Ara denies SOB and has clear BS to anterior auscultation. She was 93% on RA. She did no t require PRN tx. lan of Care - Luz Syed OT - 12/09/2018 11:17 AM PDTProblem: Patient Care Overview (Adult) Goal: Care Team Goals & Evaluation PROBLEM-RELATED GOALS: 1. Ara will have pain < 3/10 by 12/10/18. 2. Ara will have baseline strength/sensation by 12/10/18 3. Ara will have no S/S infection through 12/10/18 4. Ara will continue her home respiratory medications from formulary substitution as req uired by 12/10/18. 5. Ara will maintain >92% Sats by 12/10/18 6. Ara will have treatment for airway clearance and atelectasis by 12/10/18. 7. Ara will be Mod I with ambulation in hallway by 12/13/18 8. Ara will be mod. I with functional t/fs in room by 12/15/18 STRATEGY TO ACHIEVE GOALS: - Assess pain - Assess sensation/strength - Assess S/S infection - Ara has Duonebs Q4H PRN for SOB. - Ara has oximetry checks and supplemental O2 as required for target Sats. - Ara has PEP therapy for airway clearance and atelectasis. - Ara will participate in PT activities - Ara will sit up in bed side chair for all meals. - Participation with OT POC. Therapy Plan of Care Missed Visit Note Patient Information Patient Name: Ara Tilley Date of : 1945 Age: 73 y.o. The patient was unable to be seen for today's scheduled visit due to pt in dialysis. Plan: Pt to be seen next scheduled OT session. Electronically signed by: Luz Luciano OT, 12/09/2018 11:15 lan of Care - Claude Santos, PT - 12/09/2018 10:10 AM PDTFormatting of this note might be differen t from the original. Physical Therapy Plan of Care Treatment Note Summary: Ara has been participating in physical therapy for treatment of Impaired fun ctional mobility and impaired balance due to pain, decreased flexibility and weakness follow ing 2 falls at home. Pt was brought to ER with complaint of R hip pain and found to have rig ht femur fx. Pt underwent right hip cannulated screw fixation for femoral neck fracture. Pt is now WBAT RLE. Pt medical history significant for shceduled dialysis Mon, Wed, Fri. Pt rep orts that she's basically "homeless" and goes back and forth between her sister's homes to [facility]. Pt states she usually sleeps on the couch.. Emphasis of session included encouragement for functional mobility training, gait, increasing weightbearing on right lower extremity w ith stance phase of gait, functional transfers for washing of face and hands and brushing te eth at sink. Patient requiring copious cues and encouragement today to mobilize and she com plains that she wishes she was allowed to do it on her own time rather than having to cater to everyone else's schedules. Once the patient mobilized to the sink to wash her face and b ospina her teeth, she began complaining that she did not want a male therapist assisting her w hile she bathed. After multiple attempts to explain that she was only asked to demonstrate washing of her face, she proceeded to stand on one leg (her Right) and wash the entirety of her body asking the therapist to leave. ALARM SIGNAL OPERATOR was called in for patient privacy concerns. Loi lu demonstrates slow progress towards functional goals as evidenced by needing additional encouragement today to facilitate participation. Remaining barriers to discharge and functional limitations include decreased insight into s afety and deficits, decreased functional activity tolerance, decreased bed mobility, decreas ed functional transfers, decreased functional gait distance, decreased gait velocity, not ye t able to mobilize at level safe for home discharge and medical status. Ara will benefit from continued therapeutic intervention to address ongoing impairments and increase safety and independence with activities necessary for safe discharge. Refer be low for specific details regarding functional levels. Physical Therapy Discharge Recommendations are: Recommended discharge disposition: correction facility Post discharge physical therapy recommendation: minimum 5 days of therapy/week, will benef it from structured setting, ongoing low intensity therapy Equipment Recommendations: 2 wheeled walker (FWW) Planned Interventions: balance training, bed mobility training, gait training, patient/fam natali education, transfer training, home exercise program, joint mobilization, manual therapy techniques, postural re-education, orthotic fitting/training, neuromuscular re-education, mo tor coordination training, ROM (Range of Motion), stair training, strengthening Recommended Frequency: (1-2 x day (note that [facility] has lengthy dialysis on Mon, wed, fri .)) Patient Status/Goals: Reflects last filed data and may be from multiple contributors. Gait Patient requires additional time and encouragement to mobilize. Demonstrates improved func tional use of front-wheeled walker but decreased weightbearing on right lower extremity with stance phase of gait Level of [place]: stand by assist Assistive Device: 2 wheeled walker (FWW) Distance (feet): 15 Gait Pattern Analysis: 3-point gait Safety Issues: sequencing ability decreased, step length decreased, weight-shifting ability decreased Impairments: decreased flexibility, pain, impaired balance Transfers Patient needing additional time and encouragement to mobilize Bed-Chair, Level of [place]: stand by assist Chair-Bed, Level of [place]: stand by assist [id number], Assistive Device: 2 wheeled walker (FWW) Sit-Stand, Level of [place]: minimal assist (75% patient effort), set up required, ignacio bal cues required, tactile cues required Stand-Sit, Level of [place]: minimal assist (75% patient effort), set up required, ignacio bal cues required, tactile cues required Kek-Aftla-Kil, Assistive Device: 2 wheeled walker (FWW) Maintain Weight Bearing Status: able to maintain weight bearing status Safety Issues: sequencing ability decreased, step length decreased, weight-shifting ability decreased Impairments: decreased flexibility, pain, impaired balance Bed Mobility pt reporting continued pain in the right lower extremity it is not limiting mobility today Assistive Device: HOB elevated, bed rails Scoot/Bridge, Level of [place]: stand by assist Supine to Sit, Level of [place]: stand by assist Sit to Supine, Level of [place]: not tested Safety Issues: decreased use of legs for bridging/pushing Impairments: decreased flexibility, pain, strength decreased Balance Sitting Balance: Static: good balance Sitting Balance: Dynamic: good balance Standing Balance: Static: fair balance Standing Balance: Dynamic: fair balance Functional Endurance Fair plus. Patient was able to stand for prolonged period of time while washing face and a glenn and brushing teeth at sink side while standing on left lower extremity only with support from upper extremities on sink ROM L LE ROM: WFL R LE ROM: limited by pain Strength L LE Strength: Grossly 4-/5 R LE Strength: limited by pain PT Goal Review Date Most Recent Value STG Review Date 12/09/18 at 12/06/2018 1115 [id number] Goal Most Recent Value STG Status new at 12/06/2018 1115 STG [place] Level modified independent at 12/06/2018 1115 STG Assistive Device none at 12/06/2018 1115 [id number] Goal Most Recent Value STG Status new at 12/06/2018 1115 STG [place] Level modified independent at 12/06/2018 1115 STG Assistive Device 2 wheeled walker (FWW) at 12/06/2018 1115 Gait Goal Most Recent Value STG Status new at 12/06/2018 1115 STG [place] Level modified independent at 12/06/2018 1115 STG Assistive Device 2 wheeled walker (FWW) at 12/06/2018 1115 STG Distance (feet) 150 feet at 12/06/2018 1115 Electronically signed by: Claude Santos, PT, 12/09/2018 18:03 lan of Care - Shay Acosta RN - 11/12 5:40 AM PDTProblem: Patient Care Overview (Adult) Goal: Care Team Goals & Evaluation PROBLEM-RELATED GOALS: 1. Ara will have pain < 3/10 by 12/10/18. 2. Ara will have baseline strength/sensation by 12/10/18 3. Ara will have no S/S infection through 12/10/18 4. Ara will continue her home respiratory medications from formulary substitution as req uired by 12/10/18. 5. Ara will maintain >92% Sats by 12/10/18 6. Ara will have treatment for airway clearance and atelectasis by 12/10/18. 7. Ara will be Mod I with ambulation in hallway by 12/13/18 8. Ara will be mod. I with functional t/fs in room by 12/15/18 STRATEGY TO ACHIEVE GOALS: - Assess pain - Assess sensation/strength - Assess S/S infection - Ara has Duonebs Q4H PRN for SOB. - Ara has oximetry checks and supplemental O2 as required for target Sats. - Ara has PEP therapy for airway clearance and atelectasis. - Ara will participate in PT activities - Ara will sit up in bed side chair for all meals. - Participation with OT POC. Outcome: Improving Goal Evaluation: Patient doing well. Sleeping on/off. Incisional pain reported/was repositioned and medicat ed with 10 mg oxycodone. Surgical precautions encouraged and dressing CDI. Last night BP was elevated and was treated with PRN bp med's. Fluid restriction continued. 1 person SBA. Fernando kearney tones active. Calls for assistance, bed alarm on, call-light within reach and frequent rou nding done. lan of Care - Roseanne Pate, RUPA - 12/09/2018 5:11 AM PDTProblem: Patient Care Overview (Adult) Goal: Care Team Goals & Evaluation PROBLEM-RELATED GOALS: 1. Ara will have pain < 3/10 by 12/10/18. 2. Ara will have baseline strength/sensation by 12/10/18 3. Ara will have no S/S infection through 12/10/18 4. Ara will continue her home respiratory medications from formulary substitution as req uired by 12/10/18. 5. Ara will maintain >92% Sats by 12/10/18 6. Ara will have treatment for airway clearance and atelectasis by 12/10/18. 7. Ara will be Mod I with ambulation in hallway by 12/13/18 8. Ara will be mod. I with functional t/fs in room by 12/15/18 STRATEGY TO ACHIEVE GOALS: - Assess pain - Assess sensation/strength - Assess S/S infection - Ara has Duonebs Q4H PRN for SOB. - Ara has oximetry checks and supplemental O2 as required for target Sats. - Ara has PEP therapy for airway clearance and atelectasis. - Ara will participate in PT activities - Ara will sit up in bed side chair for all meals. - Participation with OT POC. Outcome: Unchanged Goal Evaluation: Ara oxygen saturation is SpO2: 94 % on room air and a heart rate of 66. Breath sounds are clear, equal bilaterally and post breathing dianna tment breath sounds are aeration increased. Pt has a nonproductive cough. Pt's respirations are depth regular, pattern regular, unlabored, no shortness of breath reported with no use o f accessory muscles, no retractions, expansion symmetric. No prn treatments given during this shift. lan of Care - Shea Sepulveda RN - 12/08/2018 6:00 PM PDTProblem: Patient Care Overview (Adult) Goal: Care Team Goals & Evaluation PROBLEM-RELATED GOALS: 1. Ara will have pain < 3/10 by 12/10/18. 2. Ara will have baseline strength/sensation by 12/10/18 3. Ara will have no S/S infection through 12/10/18 4. Ara will continue her home respiratory medications from formulary substitution as req uired by 12/10/18. 5. Ara will maintain >92% Sats by 12/10/18 6. Ara will have treatment for airway clearance and atelectasis by 12/10/18. 7. Ara will be Mod I with ambulation in hallway by 12/13/18 8. Ara will be mod. I with functional t/fs in room by 12/15/18 STRATEGY TO ACHIEVE GOALS: - Assess pain - Assess sensation/strength - Assess S/S infection - Ara has Duonebs Q4H PRN for SOB. - Ara has oximetry checks and supplemental O2 as required for target Sats. - Ara has PEP therapy for airway clearance and atelectasis. - Ara will participate in PT activities - Ara will sit up in bed side chair for all meals. - Participation with OT POC. Outcome: Improving Goal Evaluation: Ara's pain is managed with 10 mg oxycodone PRN. 1 mg IV dilaudid x1 for sudden onset of R hip pain. Reports baseline N/T to BLE. Pulses +2, feet warm, cap refill brisk. VSS, afebr ile. O2 sats adequate on RA. Lungs CTA. CGA pivot to BSC. Dressing to hip CDI. No falls/inju ry. lan of Care - Claude Bryant PT - 12/08/2018 10:38 AM PDT Problem: Patient Care Overview (Adult) Goal: Care Team Goals & Evaluation PROBLEM-RELATED GOALS: 1. Ara will have pain < 3/10 by 12/10/18. 2. Ara will have baseline strength/sensation by 12/10/18 3. Ara will have no S/S infection through 12/10/18 4. Ara will continue her home respiratory medications from formulary substitution as req uired by 12/10/18. 5. Ara will maintain >92% Sats by 12/10/18 6. Ara will have treatment for airway clearance and atelectasis by 12/10/18. 7. Ara will be Mod I with ambulation in hallway by 12/13/18 8. Ara will be mod. I with functional t/fs in room by 12/15/18 STRATEGY TO ACHIEVE GOALS: - Assess pain - Assess sensation/strength - Assess S/S infection - Ara has Duonebs Q4H PRN for SOB. - Ara has oximetry checks and supplemental O2 as required for target Sats. - Ara has PEP therapy for airway clearance and atelectasis. - Ara will participate in PT activities - Ara will sit up in bed side chair for all meals. - Participation with OT POC. Physical Therapy Plan of Care Treatment Note Summary: Ara has been participating in physical therapy for treatment of Impaired fun ctional mobility and impaired balance due to pain, decreased flexibility and weakness follow ing 2 falls at home. Pt was brought to ER with complaint of R hip pain and found to have rig ht femur fx. Pt underwent right hip cannulated screw fixation for femoral neck fracture. Pt is now WBAT RLE. Pt medical history significant for shceduled dialysis Mon, Wed, Fri. Pt rep orts that she's basically "homeless" and goes back and forth between her sister's homes to s olga. Pt states she usually sleeps on the couch. Emphasis of session included gait and mobil ity training with FWW. Pt noting extremely high pain levels with ambulation today, requiring extra time and reassurance to complete mobility tasks. Patient was able to independently d on her socks and her gown in preparation for mobility and accomplished her own bed mobility without significant intervention from PT. PT spoke with RN regarding concern for patient's inability to go functional distances because of high pain levels.. Patient demonstrates pro noe towards functional goals as evidenced by patient participating and actively listening with therapist instruction.. Remaining barriers to discharge and functional limitations include decreased insight into s afety and deficits, decreased functional activity tolerance, decreased bed mobility, decreas ed functional transfers, decreased functional gait distance, decreased gait velocity, stairs at home, not able to navigate stairs, unsafe discharge disposition, not yet able to mobiliz e at level safe for home discharge and medical status. Ara will benefit from continued therapeutic intervention to address ongoing impairments and increase safety and independence with activities necessary for safe discharge. Refer be low for specific details regarding functional levels. Physical Therapy Discharge Recommendations are: Recommended discharge disposition: correction facility, cogeneration technician acute care facility (vs (pt needs to cont HDX on Wed/Wed/Wed Schedule)) Post discharge physical therapy recommendation: minimum 5 days of therapy/week, will benef it from structured setting, ongoing low intensity therapy Equipment Recommendations: 2 wheeled walker (FWW) Planned Interventions: balance training, bed mobility training, gait training, patient/fam natali education, transfer training, home exercise program, joint mobilization, manual therapy techniques, postural re-education, orthotic fitting/training, neuromuscular re-education, mo tor coordination training, ROM (Range of Motion), stair training, strengthening Recommended Frequency: (1-2 x day (note that besteinanna has lengthy dialysis on Wed, wed, wed .)) Patient Status/Goals: Reflects last filed data and may be from multiple contributors. Gait Cues required to not "over step "the front wheeled walker. Patient reminded on multiple oc casions to keep the walker in front of her and not allow her upper extremities and trunk to lean over the front of the walker. Level of Kent: minimal assist (75% patient effort), set up required, verbal cues re quired, tactile cues required Assistive Device: 2 wheeled walker (FWW) Distance (feet): 8 ft x 2, pt unable to tolerate more due to high pain at thsi time. Gait Pattern Analysis: 3-point gait Safety Issues: sequencing ability decreased, step length decreased, weight-shifting ability decreased Impairments: decreased flexibility, pain, impaired balance Transfers Patient demonstrates increased difficulty mobilizing right lower extremity. Requires extra effort and experiences additional pain with mobility. She states "I just have to do it " bu t once she is standing is unable to tolerate the pain and is not able to go functional dista nces. Bed-Chair, Level of Kent: minimal assist (75% patient effort), verbal cues required , set up required, tactile cues required Chair-Bed, Level of Kent: minimal assist (75% patient effort), set up required, ignacio bal cues required, tactile cues required [id number], Assistive Device: 2 wheeled walker (FWW) Sit-Stand, Level of Kent: minimal assist (75% patient effort), set up required, ignacio bal cues required, tactile cues required Stand-Sit, Level of Kent: minimal assist (75% patient effort), set up required, ignacio bal cues required, tactile cues required [id number], Assistive Device: 2 wheeled walker (FWW) Maintain Weight Bearing Status: able to maintain weight bearing status Safety Issues: sequencing ability decreased, step length decreased, weight-shifting ability decreased Impairments: decreased flexibility, pain, impaired balance Bed Mobility Patient demonstrates increased difficulty mobilizing right lower extremity. Requires extra effort and experiences additional pain with mobility. She states "I just have to do it " Assistive Device: HOB elevated, bed rails Scoot/Bridge, Level of Kent: stand by assist Supine to Sit, Level of Kent: stand by assist Sit to Supine, Level of Kent: not tested Safety Issues: decreased use of legs for bridging/pushing Impairments: decreased flexibility, pain, strength decreased Balance Sitting Balance: Static: fair balance Sitting Balance: Dynamic: fair balance Standing Balance: Static: poor balance Standing Balance: Dynamic: poor balance Functional Endurance poor, patient with sig increase in pain with mild activity ROM L LE ROM: WFL R LE ROM: limited by pain Strength L LE Strength: Grossly 4-/5 R LE Strength: limited by pain PT Goal Review Date Most Recent Value STG Review Date 12/09/18 at 12/06/2018 1115 [id number] Goal Most Recent Value STG Status new at 12/06/2018 1115 STG Kent Level modified independent at 12/06/2018 1115 STG Assistive Device none at 12/06/2018 1115 [id number] Goal Most Recent Value STG Status new at 12/06/2018 1115 STG [place] Level modified independent at 12/06/2018 1115 STG Assistive Device 2 wheeled walker (FWW) at 12/06/2018 1115 Gait Goal Most Recent Value STG Status new at 12/06/2018 1115 STG [place] Level modified independent at 12/06/2018 1115 STG Assistive Device 2 wheeled walker (FWW) at 12/06/2018 1115 STG Distance (feet) 150 feet at 12/06/2018 1115 Electronically signed by: Claude Santos, PT, 12/08/2018 17:33 lan of Care - Lauro Daina bergeron, OT - 12/08/2018 8:38 AM PDTFormatting of this note might be different fro dia the original. Problem: Patient Care Overview (Adult) Goal: Care Team Goals & Evaluation PROBLEM-RELATED GOALS: 1. Will have pain < 3/10 by 12/08/18. 2. Will have baseline strength/sensation by 12/08/18 3. Will have no S/S infection through 12/08/18 4. Ara will continue her home respiratory medications from formulary substitution as req uired. 5. Ara will maintain >92% Sats. 6. Ara will have treatment for airway clearance and atelectasis. 7. Pt will be Mod I with ambulation in hallway by 12/13/18 8. Pt will be mod. I with functional t/fs in room by 12/15/18 STRATEGY TO ACHIEVE GOALS: - Assess pain - Assess sensation/strength - Assess S/S infection - Ara has Duonebs Q4H PRN for SOB. - Ara has oximetry checks and supplemental O2 as required for target Sats. - Ara has PEP therapy for airway clearance and atelectasis. - Pt will participate in PT activities - Pt will sit up in bed side chair for all meals. -Participation with OT POC. Occupational Therapy Plan of Care Initial Evaluation, Treatment Note Summary: Ara presents to occupational therapy with Decreased ADL independence, functi onal mobility, pain s/p Right hip pain. Objective exam reveals impairments with arousal, at tention, and cognition, ergonomics and body mechanics, cranial and peripheral nerve integrit y, joint integrity and mobility, posture, muscle performance, functional endurance/activity tolerance, ROM. Session consisted of bed mobility and LB dressing. Pt upset pertaining break fast, confused about receiving any pain medication; pt stating she had not received any alth ough nursing was in room prior to OT session, pt upset and stating "Noone believes I get up and move" pt also upset when OT attempted to work on LB dressing and stated "everyone can d o this!" pt labile then laughing then blaming self for "being wrong" OT attempted to calm/ed ucate/provide active listening. Session ended prior to mobilizing/providing functional t/fs as pt unable to make decision of whether to get up into chair or lie back down. OT called nu rsing as pt ended sitting EOB (alarm on). D/C recommendation following further assessment of safety and mobility. Barriers to discharge and functional limitations include decreased insight into safety and deficits, decreased functional activity tolerance, decreased bed mobility, decreased functio nal transfers, decreased ability to perform BADLs, decreased ability to perform IADLs, decre ased ability to perform medication management, lives alone, demonstrating need for 24/7 supe rvision, unsafe discharge disposition, not yet able to mobilize at level safe for home disch arge and medical status. Ara will benefit from therapeutic intervention to address impairments and increase safet y and independence with activities necessary for safe discharge. Refer below for specific d etails regarding functional levels. Precautions/Limitations: falls, weight bearing status Left Lower Extremity Weight-Bearing: full weight-bearing Right Lower Extremity Weight-Bearing: weight-bearing as tolerated Previous Level of Function: Transferring: independent Ambulation: independent Toileting: independent Bathing: independent Dressing: independent Eating: independent Communication: understands/communicates without difficulty Swallowin-->swallows foods/liquids without difficulty Equipment Currently Used at Home: none Prior Functional Level Comment: Pt is poor historian, but reports that she's independent wi th mobility and ADLs. tub/shower Potential available assistance at discharge: Significant Relationships: sister Provides Primary Care For: no one, unable/limited ability to care for self Living Environment/Accessibility: Lives With: sibling(s) Living Arrangements: house Home Accessibility: no concerns Financial Concerns: none Transportation Available: family or friend will provide Living Environment Comment: Pt reports that she's basically "homeless" and alternates betwe en sister's homes. Patient/Family s Goals: unknown- pt indecisive with decision making. Rehabilitation potential: fair, will monitor progress closely Occupational Therapy Discharge Recommendations are: Recommended discharge disposition: correction facility (TBD) Post discharge occupational therapy recommendation: ongoing low intensity therapy, home he alth Equipment Recommendations: toilet safety frame, shower chair Planned Interventions:ADL retraining, transfer training, strengthening, functional enduranc e training, bed mobility training Recommended Frequency: other (see comments) (4-5x's per week) Patient Status/Goals: Reflects last filed data and may be from multiple contributors. ADLs SBA to nan<>doff socks. pt upset stating " this is ridiculous. anyone can do this" OT atte mpted to explain necessity observing function for safety at home. LB Dressing, Level of Kent: stand by assist, verbal cues required Assistive Device: none LB Dressing Assess/Train, Position: sitting LB Dressing Impairments: decreased flexibility, ROM decreased, pain Cognitive Mood/Behavior: anxious Orientation: oriented x 4 Bed Mobility increased time/effort and pain with movemetn. pt labile, indecisive about getting out of be d, verbally upset with OT for "making me move adn not believing me" OT educated on importanc e of mobility and movement as well as calming pt's suspicions of staff not discussing her mo bility level Assistive Device: HOB elevated, bed rails Scoot/Bridge, Level of Kent: stand by assist Supine to Sit, Level of Kent: stand by assist Sit to Supine, Level of Kent: not tested Safety Issues: decreased use of legs for bridging/pushing Impairments: decreased flexibility, pain, strength decreased Transfers pt back and forth on whether pt wanting to get up or not. pt indecisive, upset about breakf ast and stating OT did not believe her about her ability to get up. OT attempt to reasure pt that her concerns were valid. ROM ROM Testing Results: no range of motion deficits identified Strength L UE Strength: grossly 4/5 R UE Strength: grossly 4/5 OT Goal Review Date Most Recent Value STG Review Date 12/15/18 at 12/08/2018 0838 Toilet Transfer Goal Most Recent Value STG Status new at 12/08/2018 0838 STG [place] Level modified independent at 12/08/2018 0838 Tub/Shower Transfer Goal Most Recent Value Tub/Shower Type tub/shower combo at 12/08/2018 0838 STG Status new at 12/08/2018 0838 STG Kent Level modified independent at 12/08/2018 0838 Electronically signed by: Daina Dumont OT, 12/08/2018 9:24 lan of Care - Jazz acosta, Elie Almanza, CONVENIENCE STORE MANAGER - 12/07/2018 9:01 PM PDTProblem: Patient Care Overview (Adult) Goal: Care Team Goals & Evaluation PROBLEM-RELATED GOALS: 1. Will have pain < 3/10 by 12/08/18. 2. Will have baseline strength/sensation by 12/08/18 3. Will have no S/S infection through 12/08/18 4. Ara will continue her home respiratory medications from formulary substitution as req uired. 5. Ara will maintain >92% Sats. 6. Ara will have treatment for airway clearance and atelectasis. 7. Pt will be Mod I with ambulation in hallway by 12/13/18 STRATEGY TO ACHIEVE GOALS: - Assess pain - Assess sensation/strength - Assess S/S infection - Ara has Duonebs Q4H PRN for SOB. - Ara has oximetry checks and supplemental O2 as required for target Sats. - rAa has PEP therapy for airway clearance and atelectasis. - Pt will participate in PT activities - Pt will sit up in bed side chair for all meals. Outcome: Unchanged Goal Evaluation: Ara oxygen saturation is SpO2: 94 % on room air and a heart rate of 71. Breath sounds are clear, equal bilaterally and post breathing dianna tment breath sounds are aeration increased. Pt has a nonproductive, loose cough.RT will cont inue to monitor lan of Care - Mayelin Edmondson RN - 12/07/2018 4:01 PM PDTProblem: Patient Care Overview (Adult) Goal: Care Team Goals & Evaluation PROBLEM-RELATED GOALS: 1. Will have pain < 3/10 by 12/08/18. 2. Will have baseline strength/sensation by 12/08/18 3. Will have no S/S infection through 12/08/18 4. Ara will continue her home respiratory medications from formulary substitution as req uired. 5. Ara will maintain >92% Sats. 6. Ara will have treatment for airway clearance and atelectasis. 7. Pt will be Mod I with ambulation in hallway by 12/13/18 STRATEGY TO ACHIEVE GOALS: - Assess pain - Assess sensation/strength - Assess S/S infection - Ara has Duonebs Q4H PRN for SOB. - Ara has oximetry checks and supplemental O2 as required for target Sats. - Ara has PEP therapy for airway clearance and atelectasis. - Pt will participate in PT activities - Pt will sit up in bed side chair for all meals. Outcome: Improving Goal Evaluation: Ara's pain is managed with 10 mg oxycodone PRN. 1 mg IV dilaudid x1 for sudden onset of R hip pain after HD. Reports baseline N/T to BLE. Pulses +2, feet warm, cap refill brisk. V SS, afebrile. O2 sats adequate on RA. Lungs CTA. CGA pivot to BSC. Dressing to hip CDI. No f alls/injury. eICU Note - Gregg Castro RN - 12/07/2018 2:23 PM PDTPt completed dialysis run without any complications. G oal of 3500mL UF achieved with vital signs remaining stable throughout treatment. Sites deac cessed from RAVF. Pressure held until hemostasis was achieved. Guaze & sterile tape on sites . Reported to Mayelin, primary RN, that dialysis treatment was complete. lan of Care - Daina Dumont, OT - 10:27 AM PDTProblem: Patient Care Overview (Adult) Goal: Care Team Goals & Evaluation PROBLEM-RELATED GOALS: 1. Will have pain < 3/10 by 12/06/18. 2. Will have baseline strength/sensation by 12/08/18 3. Will have no S/S infection through 12/08/18 4. Ara will continue her home respiratory medications from formulary substitution as req uired. 5. Ara will maintain >92% Sats. 6. Ara will have treatment for airway clearance and atelectasis. 7. Pt will be Mod I with ambulation in hallway by 12/13/18 STRATEGY TO ACHIEVE GOALS: Assess pain Assess sensation/strength Assess S/S infection - Ara has Duonebs Q4H PRN for SOB. - Ara has oximetry checks and supplemental O2 as required for target Sats. - Ara has PEP therapy for airway clearance and atelectasis. -Pt will participate in PT activities -Pt will sit up in bed side chair for all meals. Therapy Plan of Care Missed Visit Note Patient Information Patient Name: Ara Tilley Date of : 1945 Age: 73 y.o. The patient was unable to be seen for today's scheduled visit due to pt receiving dialysis. Plan: OT evaluation needed. Electronically signed by: Daina Dumont OT, 12/07/2018 10:27 lan of Care - Wisam Ye, DRAW END HAND - 12/07/2018 9:52 AM PDTProblem: Patient Care Overview (Adult) Goal: Care Team Goals & Evaluation PROBLEM-RELATED GOALS: 1. Will have pain < 3/10 by 12/06/18. 2. Will have baseline strength/sensation by 12/08/18 3. Will have no S/S infection through 12/08/18 4. Ara will continue her home respiratory medications from formulary substitution as req uired. 5. Ara will maintain >92% Sats. 6. Ara will have treatment for airway clearance and atelectasis. 7. Pt will be Mod I with ambulation in hallway by 12/13/18 STRATEGY TO ACHIEVE GOALS: Assess pain Assess sensation/strength Assess S/S infection - rAa has Duonebs Q4H PRN for SOB. - Ara has oximetry checks and supplemental O2 as required for target Sats. - Ara has PEP therapy for airway clearance and atelectasis. -Pt will participate in PT activities -Pt will sit up in bed side chair for all meals. Therapy Plan of Care Missed Visit Note Patient Information Patient Name: Ara Tilley Date of : 1945 Age: 73 y.o. The patient was unable to be seen for today's scheduled visit due to pt on scheduled hemodi alysis during AM session, pt has dialysis Mon/Wed/Fri, usually AM, prefer PM tx Wed/Wed/Fri d/t dialysis is possible, pt on pickup list for PM session 12/07. Plan: Pt to be seen at next schedule visit per PoC, pt put on pickup list for 12/07 session if possible. Electronically signed by: Wisam Wetzel PTA, 12/07/2018 9:56 eICU Note - Gregg Castro RN - 12/07/2018 9:26 AM PDT5hr run of 4K dialysis ordered for today. Ordered UF 3 500mL. RAVF +bruit/thrill. Pt prepped per standard. 1st needle access attempt failed. Needle taken out & pressure held until hemostasis. Then patient allowed to eat for 15 minutes befo re trying to access again. Site prepped per standard again. Lidocaine administered to sites. Second access attempt without complications. Pt connected to cycler, access pressure initia lly high, so running QB at 310. Will be at bedside to monitor. VSS on room air.Electronicall y signed by Francisca Castro RN at 12/07/2018 2:24 PM PDTPlan of Care - Elisa Matos RN - 12/07/2018 4:12 AM PDTProblem: Patient Care Overview (Adult) Goal: Care Team Goals & Evaluation PROBLEM-RELATED GOALS: 1. Will have pain < 3/10 by 12/06/18. 2. Will have baseline strength/sensation by 12/08/18 3. Will have no S/S infection through 12/08/18 4. Ara will continue her home respiratory medications from formulary substitution as req uired. 5. Ara will maintain >92% Sats. 6. Ara will have treatment for airway clearance and atelectasis. 7. Pt will be Mod I with ambulation in hallway by 12/13/18 STRATEGY TO ACHIEVE GOALS: Assess pain Assess sensation/strength Assess S/S infection - Ara has Duonebs Q4H PRN for SOB. - Ara has oximetry checks and supplemental O2 as required for target Sats. - Ara has PEP therapy for airway clearance and atelectasis. -Pt will participate in PT activities -Pt will sit up in bed side chair for all meals. Outcome: Improving Goal Evaluation: heart regular, lungs dim with productive cough. Dressing to right hip CDI. D/P moderate. M/S 4/5. Chronic numbness to both hands and feet. Pulses 2+. Bowel tones active. Last BM 11/12 01/29. Voiding small amounts of urine. Complains of pain. Oxycodone given. fistula to RUE br uit/thrill. Gets dialysis M,W,F. Appeared to sleep well between cares. lan of Care - Macie Hung RN - 12/06/2018 4:02 PM PDTProblem: Patient Care Overview (Adult) Goal: Care Team Goals & Evaluation PROBLEM-RELATED GOALS: 1. Will have pain < 3/10 by 12/06/18. 2. Will have baseline strength/sensation by 12/08/18 3. Will have no S/S infection through 12/08/18 4. Ara will continue her home respiratory medications from formulary substitution as req uired. 5. Ara will maintain >92% Sats. 6. Ara will have treatment for airway clearance and atelectasis. 7. Pt will be Mod I with ambulation in hallway by 12/13/18 STRATEGY TO ACHIEVE GOALS: Assess pain Assess sensation/strength Assess S/S infection - Ara has Duonebs Q4H PRN for SOB. - Ara has oximetry checks and supplemental O2 as required for target Sats. - Ara has PEP therapy for airway clearance and atelectasis. -Pt will participate in PT activities -Pt will sit up in bed side chair for all meals. Outcome: Improving Goal Evaluation: Patient reports 7/10 pain, medicated routinely with IV dilaudid and 10 mg oxycodone. Up 1 person assist and FWW. Reports chronic numbness, dorsi/plantar strong, pedal pulses +2, post tibial pulses +1. Dressing has a scant amount of drainage. Bowel tones present, last BM 12/05. Al catheter out this morning, voided w/o difficulty Electronically signed by: Awilda Redding RN 12/06/2018 15:57 lan of Care - Joyce Cook Chaplain - 12/06/2018 2:42 PM PDTProblem: Patient Care Overview (Adult) Goal: Care Team Goals & Evaluation PROBLEM-RELATED GOALS: 1. Will have pain < 3/10 by 12/06/18. 2. Will have baseline strength/sensation by 12/08/18 3. Will have no S/S infection through 12/08/18 4. Ara will continue her home respiratory medications from formulary substitution as req uired. 5. Ara will maintain >92% Sats. 6. Ara will have treatment for airway clearance and atelectasis. 7. Pt will be Mod I with ambulation in hallway by 12/13/18 STRATEGY TO ACHIEVE GOALS: Assess pain Assess sensation/strength Assess S/S infection - Ara has Duonebs Q4H PRN for SOB. - Ara has oximetry checks and supplemental O2 as required for target Sats. - Ara has PEP therapy for airway clearance and atelectasis. -Pt will participate in PT activities -Pt will sit up in bed side chair for all meals. Spiritual Care Ara Tilley is a 73 y.o. female who is admitted for Closed fracture of neck of righ t femur, initial encounter ([facility]) [S72.001A]. Occupational Medicine Physician visit was part of routine rounding. Spiritual Evaluation: The patient was resting in a bed and was not receptive to spiritual care at this time. She was calm, but expressed some frustration. She did not desire to talk about her concerns. She has spiritual practices and will contact someone from the [place] if neede d. She has a sister who is supportive, but she did not desire to talk about her support sys [facility]. Spiritual Interventions: The nut packer attended, offered care, and explored meaning. Spiritual Outcomes: The patient was not receptive to spiritual care at this time. Spiritual Goals/Follow-up: Follow up as requested. lan of Care - Fred Galvan, PT - 12/06/2018 11:28 AM PDTFormatting of this note might be different f rom the original. Problem: Patient Care Overview (Adult) Goal: Care Team Goals & Evaluation PROBLEM-RELATED GOALS: 1. Will have pain < 3/10 by 12/06/18. 2. Will have baseline strength/sensation by 12/08/18 3. Will have no S/S infection through 12/08/18 4. Ara will continue her home respiratory medications from formulary substitution as req uired. 5. Ara will maintain >92% Sats. 6. Ara will have treatment for airway clearance and atelectasis. 7. Pt will be Mod I with ambulation in hallway by 12/13/18 STRATEGY TO ACHIEVE GOALS: Assess pain Assess sensation/strength Assess S/S infection - Ara has Duonebs Q4H PRN for SOB. - Ara has oximetry checks and supplemental O2 as required for target Sats. - Ara has PEP therapy for airway clearance and atelectasis. -Pt will participate in PT activities -Pt will sit up in bed side chair for all meals. Outcome: Improving Physical Therapy Plan of Care Initial Evaluation, Treatment Note Summary: Ara presents to physical therapy with impaired functional mobility and impai red balance due to pain, decreased flexibility and weakness following 2 falls at home and bates bsequent femur fx. Pt is now WBAT RLE. Pt medical history significant for shceduled dialys is Mon, Wed, Fri. Pt reports that she's basically "homeless" and goes back and forth betwee n her sister's homes to stay.. Objective exam reveals impairments with aerobic capacity/end urance, ergonomics and body mechanics, functional endurance/activity tolerance, gait, locomo tion, and balance, muscle performance. Emphasis of session to establish current functional m obility, initiate and progress bed Mobility, transfer training, gait training, assess safety and activity tolerance. Barriers to discharge and functional limitations include decreased insight into safety and deficits, decreased functional activity tolerance, decreased bed mobility, decreased functio nal transfers, decreased functional gait distance, decreased gait velocity, lives alone, uns afe discharge disposition and not yet able to mobilize at level safe for home discharge. Ara will benefit from therapeutic intervention to address impairments and increase safet y and independence with activities necessary for safe discharge. Refer below for specific d etails regarding functional levels. Precautions/Limitations: falls, weight bearing status Left Lower Extremity Weight-Bearing: full weight-bearing Right Lower Extremity Weight-Bearing: weight-bearing as tolerated Previous Level of Function: Transferring: independent Ambulation: independent Toileting: independent Bathing: independent Dressing: independent Eating: independent Communication: understands/communicates without difficulty Swallowin-->swallows foods/liquids without difficulty Equipment Currently Used at Home: none Prior Functional Level Comment: Pt is poor historian, but reports that she's independent wi th mobility and ADLs Potential available assistance at discharge: unknown Living Environment/Accessibility: Lives With: sibling(s) Living Arrangements: house Home Accessibility: no concerns Financial Concerns: none Transportation Available: family or friend will provide Living Environment Comment: lives with sister Patient/Family s Goals: have less pain Rehabilitation potential: good, to achieve stated therapy goals Physical Therapy Discharge Recommendations are: Recommended discharge disposition: (TBD) Post discharge physical therapy recommendation: (TBD) Equipment Recommendations: 2 wheeled walker (FWW) Planned Interventions: balance training, bed mobility training, gait training, patient/fam natali education, transfer training Recommended Frequency: (1-2 x day (note that pateint has lengthy dialysis on Mon, wed, fri .)) Patient Status/Goals: Reflects last filed data and may be from multiple contributors. Gait Min A for mild imbalance due to pain. Level of [place]: minimal assist (75% patient effort), set up required, verbal cues re quired, tactile cues required Assistive Device: 2 wheeled walker (FWW) Distance (feet): 15 feet x2 Gait Pattern Analysis: 3-point gait Safety Issues: sequencing ability decreased, step length decreased, weight-shifting ability decreased Impairments: decreased flexibility, pain, impaired balance Transfers multiple attempts before rising, heavy use of arms on walker, extra time and effort due to pain. Mild imbalance on initial stand. Bed-Chair, Level of [place]: minimal assist (75% patient effort), verbal cues required , set up required, tactile cues required Chair-Bed, Level of [place]: not tested [id number], Assistive Device: 2 wheeled walker (FWW) Sit-Stand, Level of [place]: minimal assist (75% patient effort), set up required, ignacio bal cues required, tactile cues required Stand-Sit, Level of [place]: minimal assist (75% patient effort), set up required, ignacio bal cues required, tactile cues required Axo-Noxop-Yhu, Assistive Device: 2 wheeled walker (FWW) Maintain Weight Bearing Status: able to maintain weight bearing status Safety Issues: sequencing ability decreased, step length decreased, weight-shifting ability decreased Impairments: decreased flexibility, pain, impaired balance Bed Mobility No physical assist needed. extra time and effort due to pain. able to sit EOB using arms for support. Assistive Device: HOB elevated, bed rails Scoot/Bridge, Level of Kent: contact guard assist Supine to Sit, Level of [place]: contact guard assist Sit to Supine, Level of [place]: not tested Safety Issues: decreased use of legs for bridging/pushing Impairments: decreased flexibility, pain, strength decreased ROM L LE ROM: WFL R LE ROM: limited by pain Strength L LE Strength: Grossly 4-/5 R LE Strength: limited by pain PT Goal Review Date Most Recent Value STG Review Date 12/09/18 at 12/06/2018 1115 Kiqouk-Ksi-Weiieu Goal Most Recent Value STG Status new at 12/06/2018 1115 STG [place] Level modified independent at 12/06/2018 1115 STG Assistive Device none at 12/06/2018 1115 Dns-Afjjq-Zpp Goal Most Recent Value STG Status new at 12/06/2018 1115 STG [place] Level modified independent at 12/06/2018 1115 STG Assistive Device 2 wheeled walker (FWW) at 12/06/2018 1115 Gait Goal Most Recent Value STG Status new at 12/06/2018 1115 STG [place] Level modified independent at 12/06/2018 1115 STG Assistive Device 2 wheeled walker (FWW) at 12/06/2018 1115 STG Distance (feet) 150 feet at 12/06/2018 1115 Electronically signed by: Fred Galvan, PT, 12/06/2018 11:26 lan of Care - Liam Goodwin, CONVENIENCE STORE MANAGER - 12/06/2018 9:36 AM PDT Problem: Patient Care Overview (Adult) Goal: Care Team Goals & Evaluation PROBLEM-RELATED GOALS: 1. Will have pain < 3/10 by 12/06/18. 2. Will have baseline strength/sensation by 12/08/18 3. Will have no S/S infection through 12/08/18 4. Ara will continue her home respiratory medications from formulary substitution as req uired. 5. Ara will maintain >92% Sats. 6. Ara will have treatment for airway clearance and atelectasis. STRATEGY TO ACHIEVE GOALS: Assess pain Assess sensation/strength Assess S/S infection - Ara has Duonebs Q4H PRN for SOB. - Ara has oximetry checks and supplemental O2 as required for target Sats. - Ara has PEP therapy for airway clearance and atelectasis. Outcome: Improving Goal Evaluation: Ara says she is using the PEP on her own and does not want further coaching. She denies SOB and did not require PRN tx. BS were clear and she was 95% on RA. Severity Score 3 Class 1 Severity Score 0-4 ITEM 0 1 2 3 4 0 Respiratory History No Smoking history Current tobacco use Up to 10 Pack year history. Simple home regimen Known Pulmonary Disease 20 pack year history Complex Home regimen 30+ pack year history Severe Pulmonary Disease or exacerbation 1 Surgery Status (current admission) No surgery Minor surgery Lower abdominal rib fractures Thoracic or uppe r abdominal Thoracic with pulmonary disease or Central Nervous System 2 Chest X-RAY Clear or Normal baseline Unavailable Improving/clearing Abnormal, Unilateral or mild Infiltrates or atelectasis, Chronic changes Infiltrates mild bilateral or unilateral or pleural effusions extensive Inf iltrates, atelectasis or pleural effusions, pneumothorax 0 Respiratory Pattern Regular pattern Respiratory Rate:8-20 Increased Respiratory Rate, labored Dyspnea on exertion, irregular pattern Use of accessory muscles, prolonged expirato ry phase nasal flaring Severe Dyspnea , Purse Lip Breathing, Use of accessory muscles 0 Breath Sounds Clear Diminished unilaterally Diminished bilaterally &/or crackles Wheezing or Rhonchi &/or absent unilateral Absent bilaterally 0 Cough Strong, non productive Moderate, loose, productive Weak, non-productive Weak, ineffective Non-spontaneous or may require suctioning 0 Sputum None Scant / Thin White/clear Moderate Beige/ yellow Large / Thick Dark Green/Brown Copious / Plugs Hemoptysis caroline 0 LOC Alert, oriented, cooperative Disoriented, follows commands Obtunded, arousable, follo ws commands Obtunded, uncooperative, sedated Comatose 0 Oxygen Demand Room air Baseline 1-2 liters 3-6 liters >7 Liters Oxymizer to > 55% 60% or greater Total Severity Score (SS) Class 0-3 1 4-7 2 8-11 3 12-14 4 15+ 5 lan of [facility] - Elisa Chen RN - 12/06/2018 4:58 AM PDTProblem: Patient Care Overview (Adult) Goal: Care Team Goals & Evaluation PROBLEM-RELATED GOALS: 1. Will have pain < 3/10 by 12/06/18. 2. Will have baseline strength/sensation by 12/08/18 3. Will have no S/S infection through 12/08/18 STRATEGY TO ACHIEVE GOALS: Assess pain Assess sensation/strength Assess S/S infection Outcome: Improving Goal Evaluation: Heart distant, lungs coarse with productive cough on 1L. Does not use O2 at baseline. 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 D/P moderate. M/S /. Pulses 2+. Dilaudid given for pain. Dressing to R LE CDI. Not up yet. Will have PT eval today. Dialysis done yesterday. Dressing over fistula CDI. Al draining clear yellow urine. Passing flatus. Bowel tones active. Last BM 12/05. Appeared to sleep well between. lan of [facility] - Elisa Chen RN - 12/06/2018 12:10 AM PDTPatient called for pain medication. When arrivi ng to room patient was sleeping and aroused with some difficulty. Holding pain medication a t this time due to sedation. Will continue to monitor. Kerry Ventura RN - 12/05/2018 4:25 PM PD TPt just finished a 5 hr run of dialysis at 7 L/hr, total UF 3500 ml, and she tolerated well . The only problem at the beggening was that we could not run the BFR at 350 only at 250 to keep pressures under control, Dr Muñoz notified. Francisca Bianchi RN - 12/05/2018 10:45 AM PDTPt sc heduled for HD today. This nurse asked to access. Pt has RAVF. +bruit/thrill. Site prepped p er protocol, lidocaine administered at sites, and 16G needles used to access. No complicatio ns r/t access. Access pressure high initially; RN running dialysis to address with onically signed by Francisca Castro RN at 12/05/2018 11:11 AM PDTPlan of Lauro Balderrama LICSW - 12/05/2018 10:38 AM PDTProblem: Discharge Planning Goal: Patient will be discharged in a safe manner Outcome: Improving Visited with this patient from [place] who fell 2x in one week and fractured her femur. Patient was transferred here for orthopedic intervention. Patient had surgery and had screw fixation of the femur. Patient is a dialysis patient and was getting ready for dialysis wh en this family preservation caseworker went to see her. Patient said that she is normally independent and linda s not use a mobility aid. She said that when discharged she would return to her sister's [facility] in [place] where she resides with her sister who is a nurse and with her sister's son. Case management will need to follow up with this patient. Physical therapy had not been in to work with her yet.Electronically signed by: AMILCAR Wray 12/05/2018 10:38 lan of Elisa Moore RN - 12/05/2018 4:38 AM PDTProblem: Patient Care Overview (Adult) Goal: Care Team Goals & Evaluation PROBLEM-RELATED GOALS: 1. Will have pain < 3/10 by 12/06/18. 2. Will have baseline strength/sensation by 12/08/18 3. Will have no S/S infection through 12/08/18 STRATEGY TO ACHIEVE GOALS: Assess pain Assess sensation/strength Assess S/S infection RESTRAINT-RELATED GOALS: STRATEGIES TO ACHIEVE RESTRAINT GOALS: Outcome: Improving Goal Evaluation: lungs coarse on 2L. Productive cough. Pulses 2+. RLE some numbness. Dressing to RLE CDI. D /P moderate. M/S 4/5. Al draining glenda urine. HD fistula to RUE. Thrill/brue present. D ilaudid given for pain. B/P elevated tonight. Scheduled and PRN B/P medications given. hosp italist notified. Will continue to monitor. Not up yet. Tolerating renal diet. Bowel ton es hypoactive. p Note - Scott Brooks MD - 12/04/2018 5:09 PM PDTpreop diagnosis - Garden one right femoral neck fractur e Postop diagnosis - same Procedure - percutaneous cannulated screw fixation right femoral neck fracture Scott Brooks MD 12/04/18 Procedure in detail - after informed consent is obtained the patient is taken to the operat ing room and underwent femoral nerve block followed by general. She got one gram ancef proph ylaxis. She was placed supine on a fracture table and the left lower extremity was placed in lithotomy position and well padded. The right was placed in a traction boot. c arm is broug ht in and verified clear passage. After sterile prep and drape and timeout, a percutaneous i ncision is made through skin alone using c arm guidance. A cluster of 3 parallel pins are ar ranged through the drill guide in proper manner. We reamed the outer cortex only and placed 3 cannulated screws 6.5mm partially threaded - all 3 had reasonable bite. Final films taken. The wound is closed with 4-0 monocryl followed by steri strips and dressings. She had 30cc of naropin point 2 percent local infiltration to supplement the block. EBl 5cc Stable to PAR Scott Brooks MD docume nted in this encounter Plan of Treatment + +------+--------+ + + | Name | Type | Priori | Associated Diagnoses | Date/Time | | | | ty | | | + +------+--------+ + + | ED INFORMATION | CHRISTY | Routin | | 12/04/2018 1:37 PM | | EXCHANGE | | e | | PDT | + +------+--------+ + + + +------+--------+ + + | Name | Type | Priori | Associated Diagnoses | Order Schedule | | | | ty | | | + +------+--------+ + + | DME: Walker | DME | Routin | Closed fracture of | DME 1 Time for 1 | | | | e | right hip, initial | Occurrences starting | | | | | encounter (HCC) | 12/09/2018 until | | | | | | 12/09/2018 | + +------+--------+ + + + + +--------+ + + | Name | Type | Priori | Associated Diagnoses | Order Schedule | | | | ty | | | + + +--------+ + + | Home Health, | Outpatient | Routin | Physical | Ordered: 12/09/2018 | | External - AMB | Referral | e | deconditioning | | | Referral | | | Anemia of chronic | | | | | | renal failure, stage | | | | | | 5 (HCC) Closed | | | | | | fracture of right | | | | | | hip with routine | | | | | | healing, subsequent | | | | | | encounter | | + + +--------+ + + documented as of this encounter Procedures + +--------+ + + + | Procedure Name | Priori | Date/Time | Associated Diagnosis | Comments | | | ty | | | | + +--------+ + + + | POC GLUCOSE | Routin | 12/09/2018 | | Results for this | | | e | 6:05 PM | | procedure are in the | | | | PDT | | results section. | + +--------+ + + + | POC GLUCOSE | Routin | 12/09/2018 | | Results for this | | | e | 11:54 AM | | procedure are in the | | | | PDT | | results section. | + +--------+ + + + | VITAMIN D, | Routin | 12/09/2018 | | Results for this | | DEFICIENCY SCREEN | e | 7:38 AM | | procedure are in the | | ([id number]) | | PDT | | results section. | + +--------+ + + + | POC GLUCOSE | Routin | 12/09/2018 | | Results for this | | | e | 6:09 AM | | procedure are in the | | | | PDT | | results section. | + +--------+ + + + | POC GLUCOSE | Routin | 12/08/2018 | | Results for this | | | e | 6:50 AM | | procedure are in the | | | | PDT | | results section. | + +--------+ + + + | POC GLUCOSE | Routin | 12/07/2018 | | Results for this | | | e | 4:49 PM | | procedure are in the | | | | PDT | | results section. | + +--------+ + + + | EXTRA GREEN TOP TUBE | Routin | 12/07/2018 | | Results for this | | | e | 7:15 AM | | procedure are in the | | | | PDT | | results section. | + +--------+ + + + | CBC NO DIFFERENTIAL | Routin | 12/07/2018 | | Results for this | | | e | 6:34 AM | | procedure are in the | | | | PDT | | results section. | + +--------+ + + + | POC GLUCOSE | Routin | 12/07/2018 | | Results for this | | | e | 6:21 AM | | procedure are in the | | | | PDT | | results section. | + +--------+ + + + | POC GLUCOSE | Routin | 12/06/2018 | | Results for this | | | e | 5:16 PM | | procedure are in the | | | | PDT | | results section. | + +--------+ + + + | POC GLUCOSE | Routin | 12/06/2018 | | Results for this | | | e | 11:47 AM | | procedure are in the | | | | PDT | | results section. | + +--------+ + + + | POC GLUCOSE | Routin | 12/06/2018 | | Results for this | | | e | 6:04 AM | | procedure are in the | | | | PDT | | results section. | + +--------+ + + + | CBC NO DIFFERENTIAL | Routin | 12/06/2018 | | Results for this | | | e | 5:49 AM | | procedure are in the | | | | PDT | | results section. | + +--------+ + + + | PARATHYROID HORMONE, | Routin | 12/06/2018 | | Results for this | | INTACT | e | 5:49 AM | | procedure are in the | | | | PDT | | results section. | + +--------+ + + + | HEMOGLOBIN A1C | Routin | 12/06/2018 | | Results for this | | | e | 5:49 AM | | procedure are in the | | | | PDT | | results section. | + +--------+ + + + | POC GLUCOSE | Routin | 12/05/2018 | | Results for this | | | e | 5:11 PM | | procedure are in the | | | | PDT | | results section. | + +--------+ + + + | POC GLUCOSE | Routin | 12/05/2018 | | Results for this | | | e | 11:58 AM | | procedure are in the | | | | PDT | | results section. | + +--------+ + + + | RESPIRATORY THERAPY | Routin | 12/05/2018 | | | | COMMUNICATION | e | 6:36 AM | | | | | | PDT | | | + +--------+ + + + | IRON AND TRANSFERRIN | STAT | 12/05/2018 | | Results for this | | | | 6:05 AM | | procedure are in the | | | | PDT | | results section. | + +--------+ + + + | CBC NO DIFFERENTIAL | Routin | 12/05/2018 | | Results for this | | | e | 6:05 AM | | procedure are in the | | | | PDT | | results section. | + +--------+ + + + | TSH | Add-On | 12/05/2018 | | Results for this | | | | 6:05 AM | | procedure are in the | | | | PDT | | results section. | + +--------+ + + + | PHOSPHORUS | Routin | 12/05/2018 | | Results for this | | | e | 6:05 AM | | procedure are in the | | | | PDT | | results section. | + +--------+ + + + | MAGNESIUM | Routin | 12/05/2018 | | Results for this | | | e | 6:05 AM | | procedure are in the | | | | PDT | | results section. | + +--------+ + + + | FERRITIN | STAT | 12/05/2018 | | Results for this | | | | 6:05 AM | | procedure are in the | | | | PDT | | results section. | + +--------+ + + + | BASIC METABOLIC | Routin | 12/05/2018 | | Results for this | | PANEL | e | 6:05 AM | | procedure are in the | | | | PDT | | results section. | + +--------+ + + + | POC GLUCOSE | Routin | 12/05/2018 | | Results for this | | | e | 2:58 AM | | procedure are in the | | | | PDT | | results section. | + +--------+ + + + | POC GLUCOSE | Routin | 12/04/2018 | | Results for this | | | e | 8:44 PM | | procedure are in the | | | | PDT | | results section. | + +--------+ + + + | POC GLUCOSE | Routin | 12/04/2018 | | Results for this | | | e | 5:15 PM | | procedure are in the | | | | PDT | | results section. | + +--------+ + + + | XR HIP RIGHT 2-3 | Routin | 12/04/2018 | | Results for this | | VIEWS | e | 4:59 PM | | procedure are in the | | | | PDT | | results section. | + +--------+ + + + | FL ALBERTINA STATS NO | Routin | 12/04/2018 | | Results for this | | CHARGE | e | 4:58 PM | | procedure are in the | | | | PDT | | results section. | + +--------+ + + + | ORIF HIP W/ | | 12/04/2018 | Right femoral neck | | | CANNULATED SCREWS | | 4:05 PM | fracture | | | | | PDT | | | + +--------+ + + + | XR HIP RIGHT 2-3 | STAT | 12/04/2018 | | Results for this | | VIEWS | | 2:27 PM | | procedure are in the | | | | PDT | | results section. | + +--------+ + + + | XR CHEST AP PORTABLE | STAT | 12/04/2018 | | Results for this | | | | 2:27 PM | | procedure are in the | | | | PDT | | results section. | + +--------+ + + + | PROCALCITONIN, SERUM | Add-On | 12/04/2018 | | Results for this | | | | 2:01 PM | | procedure are in the | | | | PDT | | results section. | + +--------+ + + + | PTT | STAT | 12/04/2018 | | Results for this | | | | 2:01 PM | | procedure are in the | | | | PDT | | results section. | + +--------+ + + + | PROTIME INR | STAT | 12/04/2018 | | Results for this | | | | 2:01 PM | | procedure are in the | | | | PDT | | results section. | + +--------+ + + + | CBC WITH | STAT | 12/04/2018 | | Results for this | | DIFFERENTIAL | | 2:01 PM | | procedure are in the | | | | PDT | | results section. | + +--------+ + + + | COMPREHENSIVE | STAT | 12/04/2018 | | Results for this | | METABOLIC PANEL | | 2:01 PM | | procedure are in the | | | | PDT | | results section. | + +--------+ + + + | ED INFORMATION | Routin | 12/04/2018 | | | | EXCHANGE | e | 1:37 PM | | | | | | PDT | | | + +--------+ + + + +---+--------+ | | | | | Proced | | | ure | | | Note - | | | Jena, | | | Lab In | | | | | | Hlseve | | | n - | | | 12/04/ | | | 2018 | | | 1:38 | | | PM PDT | | | | | | Format | | | ting | | | of | | | this | | | note | | | might | | | be | | | differ | | | ent | | | from | | | the | | | origin | | | al.COL | | | LECTIV | | | E?NOTI | | | FICATI | | | ON?03/ | | | 24/201 | | | 9 | | | 13:34? | | | WILLIA | | | MS, | | | ARA | | | | | | R?MRN: | | | | | | [id number] | | | [id number] | | | riteri | | | a Met | | | Care | | | Guidel | | | inesSe | | | curity | | | and | | | Safety | | | No | | | recent | | | | | | Securi | | | ty | | | Events | | | | | | curren | | | tly on | | | | | | fileED | | | Care | | | Guidel | | | inesTh | | | ere | | | are | | | curren | | | tly no | | | ED | | | Care | | | Guidel | | | fidel | | | for | | | this | | | patien | | | t. | | | Please | | | check | | | your | | | facili | | | ty's | | | medica | | | l | | | record | | | s | | | system | | | .Care | | | Histor | | | yMedic | | | al/Mona | | | [email or web address] | | | /21/19 | | | 12:00 | | | AM | | | [facility] | | [facility] | | | al?? | | | PATIEN | | | T IS A | | | | | | [facility] | | | [facility] | | | [facility] | | | .?? | | | PLEASE | | | REFER | | | | | | PATIEN | | | T TO | | | [facility] | [facility] | [facility] | | | FOR | | | NON | | | EMERGE | | | NT | | | MEDICA | | | L | | | NEEDS. | | | ?? | | | [facility] | | | [facility] | [facility] | | | CAN | | | SEE | | | PATIEN | | | TS | | | SAME | | | DAY | | | FOR | | | APTS | | | IF | | | PATIEN | | | T | | | CALLS | | | FIRST | | | THING | | | IN THE | | | | | | MORNIN | | | G.Pres | | | cripti | | | on | | | Drug | | | Report | | | (12 | | | Mo.)PD | | | MP | | | query | | | found | | | no | | | report | | | .E.D. | | | Visit | | | Count | | | (12 | | | mo.)Fa | | | cility | | | | | | Visits | | | Low | | | Acuity | | | | | | Provid | | | ence | | | St[facility] | | | [facility] | | | [facility] | | | l | | | Center | | | 1 0 | | | [facility] | [facility] | [place] | | | 3 0 | | | [facility] | | | y | | | Hospit | | | al 3 0 | | | Total | | | 7 0 | | | Note: | | | Visits | | | | | | indica | | | te | | | total | | | known | | | visits | | | . | | | Medica | | | id Low | | | | | | Acuity | | | Dx | | | are | | | the | | | number | | | of | | | primar | | | y | | | diagno | | | ses on | | | the | | | Medica | | | id's | | | Low | | | Acuity | | | dx | | | list. | | | | | | Recent | | | | | | Emerge | | | ncy | | | Depart | | | ment | | | Visit | | | [facility] | | | yDate | | | Facili | | | ty | | | City | | | State | | | Type | | | Diagno | | | ses or | | | Chief | | | | | | Compla | | | int | | | Mar | | | 24, | | | 2019 | | | Provid | | | ence | | | [facility] | | | [facility] | [place] | | | [place] | | | Emerge | | | ncy | | | fall | | | Mar | | | 12, | | | 2019 | | | [facility] [place] | | | [facility] | | | [place] 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 | | | | | | (TIA), | | | and | | | 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 | | | ts | | | Depend | | | ence | | | on | | | renal | | | dialys | | | is | | | Major | | | depres | | | sive | | | disord | | | er, | | | single | | | | | | episod | | | e, | | | unspec | | | ified | | | | | | Allerg | | | y | | | status | | | to | | | other | | | drugs, | | | | | | medica | | | ments | | | and | | | biolog | | | ical | | | substa | | | nces | | | status | | | | | | Unspec | | | ified | | | injury | | | of | | | head, | | | initia | | | l | | | encoun | | | ter | | | Other | | | long | | | term | | | (curre | | | nt) | | | drug | | | therap | | | y | | | Fall | | | on | | | same | | | level | | | from | | | slippi | | | ng, | | | trippi | | | ng and | | | | | | stumbl | | | ing | | | with | | | subseq | | | uent | | | striki | | | ng | | | agains | | | t | | | unspec | | | ified | | | object | | | , | | | initia | | | l | | | encoun | | | ter | | | Mar 8, | | | 2019 | | | [facility] | [facility] | | | [place] | | | [place] | | | Emerge | | | ncy | | | Type | | | 2 | | | diabet | | | es | | | mellit | | | us | | | with | | | diabet | | | ic | | | neurop | | | athy, | | | unspec | | | ified | | | | | | Left | | | upper | | | quadra | | | nt | | | pain | | | | | | Contus | | | ion of | | | | | | abdomi | | | nal | | | wall, | | | initia | | | l | | | encoun | | | ter | | | Long | | | term | | | (curre | | | nt) | | | use of | | | | | | insuli | | | n | | | Bathro | | | om of | | | unspec | | | ified | | | non-in | | | stitut | | | ional | | | (priva | | | te) | | | reside | | | nce | | | single | | | -famil | | | y | | | (priva | | | te) | | | house | | | as the | | | place | | | of | | | occurr | | | ence | | | 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 | | | 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 | | | | | | Person | | | al | | | histor | | | y of | | | malign | | | ant | | | neopla | | | sm of | | | breast | | | | | | Other | | | long | | | term | | | (curre | | | nt) | | | drug | | | therap | | | y | | | Allerg | | | y | | | status | | | to | | | other | | | drugs, | | | | | | medica | | | ments | | | and | | | biolog | | | ical | | | substa | | | nces | | | status | | | | | | Depend | | | ence | | | on | | | renal | | | dialys | | | is | | | Hypert | | | ensive | | | | | | chroni | | | c | | | kidney | | | | | | diseas | | | e with | | | stage | | | 1 | | | throug | | | h | | | stage | | | 4 | | | chroni | | | c | | | kidney | | | | | | diseas | | | e, or | | | unspec | | | ified | | | chroni | | | c | | | kidney | | | | | | diseas | | | e Reyes | | | 18, | | | 2019 | | | [facility] [place] [facility] | [facility] | | | [place] 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 | | | with | | | diabet | | | ic | | | neurop | | | athy, | | | unspec | | | ified | | | | | | Allerg | | | y | | | status | | | to | | | other | | | drugs, | | | | | | medica | | | ments | | | and | | | biolog | | | ical | | | substa | | | nces | | | status | | | | | | Person | | | al | | | histor | | | y of | | | nicoti | | | ne | | | depend | | | ence | | | | | | Athero | | | sclero | | | tic | | | heart | | | diseas | | | e of | | | [place] | | | | | | mckeon | | | ry | | | artery | | | | | | withou | | | t | | | angina | | | | | | pector | | | is | | | Long | | | term | | | (curre | | | nt) | | | use of | | | | | | insuli | | | n Dec | | | 19, | | | 2018 | | | [facility] | | | ID | | | Emerge | | | ncy | | | | | | Conges | | | tion/D | | | ifficu | | | lty | | | Breath | | | ing/Em | | | esis | | | | | | Shortn | | | ess of | | | | | | Breath | | | | | | Fluid | | | overlo | | | ad, | | | unspec | | | ified | | | Dec | | | 6, | | | 2018 | | | [facility] [place] | | | ID | | | Emerge | | | ncy | | | | | | Diffic | | | ulty | | | Breath | | | ing, | | | Swolle | | | n Legs | | | | | | Shortn | | | ess of | | | | | | Breath | | | | | | Pleura | | | l | | | effusi | | | on, | | | not | | | elsewh | | | ere | | | classi | | | fied | | | End | | | stage | | | renal | | | diseas | | | e Oct | | | 25, | | | 2018 | | | [facility] [place] | | | ID | | | Emerge | | | ncy | | | Cough | | | | | | Shortn | | | ess of | | | | | | Breath | | | | | | Pneumo | | | bridger, | | | unspec | | | ified | | | organi | | | sm | | | [facility] | | | pneumo | | | bridger, | | | unspec | | | ified | | | organi | | | sm | | | Recent | | | | | | Inpati | | | ent | | | Visit | | | [facility] | | | yDate | | | Facili | | | ty | | | City | | | State | | | Type | | | Diagno | | | ses or | | | Chief | | | | | | Compla | | | int | | | Dec | | | 19, | | | 2018 | | | [facility] [place] [facility] [place] | | | ID | | | Genera | | | l | | | Medici | | | ne | | | Essent | | | ial | | | (prima | | | ry) | | | hypert | | | ension | | | | | | Fluid | | | overlo | | | ad, | | | unspec | | | ified | | | | | | Pleura | | | l | | | effusi | | | on, | | | not | | | elsewh | | | ere | | | classi | | | fied | | | | | | Lobar | | | pneumo | | | bridger, | | | unspec | | | ified | | | organi | | | sm | | | Oct | | | 25, | | | 2018 | | | [facility] [place] [place] | | | ID | | | Genera | | | l | | | Medici | | | ne | | | Lobar | | | pneumo | | | bridger, | | | unspec | | | ified | | | organi | | | sm | | | Cough | | | Care | | | Provid | | | ersPro | | | vider | | | PRC | | | Type | | | Phone | | | Fax | | | Servic | | | e | | | Dates | | | BOURET | | | , | | | HANSEL | | | N H, | | | PAC | | | Physic | | | anderson | | | Assist | | | ant: | | | Surgic | | | al | | | Mar | | | 13, | | | 2019 - | | | | | | Curren | | | t | | | QUAEMP | | | TS, | | | RUI M, | | | MD | | | Family | | | | | | Medici | | | ne | | | Reyes | | | 21, | | | 2019 - | | | | | | Curren | | | t | | | [facility] | | | [facility] | | | | | | Primar | | | y Care | | | May | | | 1, | | | 2015 - | | | | | | Curren | | | t | | | [facility] | | | tive | | | Portal | | | This | | | patien | | | t has | | | regist | | | ered | | | at the | | | | | | Provid | | | ence | | | [facility] | | | [facility] | Medica | | | l | | | Center | | | | | | Emerge | | | ncy | | | Depart | | | ment | | | For | | | more | | | inform | | | ation | | | visit: | | | | | | https: | | | //secu | | | [email or web address] | | | ecarep | | | [email or web address] | | | m/lee | | | ent/c1 | | | [id number] | | | [id number] | | | [id number] | | | aff-d8 | | | [id number] | | | [id number] | | | andnbs | | | p | | | PLEASE | | | NOTE: | | | 1. | | | Any | | | care | | | recomm | | | endati | | | ons | | | and | | | other | | | clinic | | | al | | | inform | | | ation | | | are | | | provid | | | ed as | | | guidel | | | fidel | | | or for | | | | | | histor | | | ical | | | purpos | | | es | | | only, | | | and | | | provid | | | ers | | | should | | | | | | exerci | | | se | | | their | | | own | | | clinic | | | al | | | judgme | | | nt | | | when | | | provid | | | ing | | | care. | | | 2. | | | You | | | may | | | only | | | use | | | this | | | inform | | | ation | | | for | | | purpos | | | es of | | | treatm | | | ent, | | | paymen | | | t or | | | health | | | care | | | operat | | | ions | | | activi | | | ties, | | | and | | | subjec | | | t to | | | the | | | limita | | | tions | | | of | | | applic | | | able | | | [facility] | | | tive | | | Polici | | | es. | | | 3. | | | You | | | should | | | | | | consul | | | t | | | direct | | | ly | | | with | | | the | | | organi | | | zation | | | that | | | provid | | | ed a | | | care | | | guidel | | | ine or | | | other | | | | | | clinic | | | al | | | histor | | | y with | | | any | | | questi | | | ons | | | about | | | additi | | | onal | | | inform | | | ation | | | or | | | accura | | | cy or | | | comple | | | teness | | | of | | | inform | | | ation | | | provid | | | ed.? | | | 2018 | | | [facility] | | | tive | | | Medica | | | l | | | [employer] | | | logies | | | , Inc[employer] | | | - | | | [email or web address] | | | llecti | | | vemedi | | | [email or web address] | | | m | +---+--------+ documented in this encounter Results POC Glucose (12/09/2018 6:05 PM PDT) + +---------+ + + + | Component | Value | Ref Range | Performed | Pathologist | | | | | At | Signature | + +---------+ + + + | Glucose, | 113 (H) | 70 - 109 mg/dL | [facility] | | | [facility] | | | [facility] | | | | | [facility] | | | | | | [facility] - | | | | | | LABORATORY | | + +---------+ + + + + + | Specimen | + + | Blood | + + + + + + + | Performing | Address | City/State/Zipcode | Phone Number | | Organization | | | | + + + + + | [facility] | [address] | [place] | [phone] | | [facility] | | [address] | | | - LABORATORY | | | | + + + + + POC Glucose (12/09/2018 11:54 AM PDT) + +---------+ + + + | Component | Value | Ref Range | Performed | Pathologist | | | | | At | Signature | + +---------+ + + + | Glucose, | 175 (H) | 70 - 109 mg/dL | [facility] | | | P[facility] | | | [facility] | | | | | [facility] | | | | | | CENTER - | | | | | | LABORATORY | | + +---------+ + + + + + | Specimen | + + | Blood | + + + + + + + | Performing | Address | City/State/Zipcode | Phone Number | | Organization | | | | + + + + + | [facility] | [address] | [place], [place] | [phone] | | [facility] | | [address] | | | - LABORATORY | | | | + + + + + Vitamin D, Deficiency Screen (25-Hydroxy) (12/09/2018 7:38 AM PDT) + +-------+ + + + | Component | Value | Ref Range | Performed | Pathologist | | | | | At | Signature | + +-------+ + + + | Vitamin D, | 39 | 30 - 100 ng/mL | [facility] | | | 25 Hydroxy | | | [facility] | | | | | | [facility] | | | | | | CENTER - | | | | | | LABORATORY | | + +-------+ + + + + + | Specimen | + + | Blood | + + + + + + + | Performing | Address | City/State/Zipcode | Phone Number | | Organization | | | | + + + + + | [facility] | [address] | [place] | [phone] | | [facility] | | [address] | | | - LABORATORY | | | | + + + + + POC Glucose (12/09/2018 6:09 AM PDT) + +---------+ + + + | Component | Value | Ref Range | Performed | Pathologist | | | | | At | Signature | + +---------+ + + + | Glucose, | 117 (H) | 70 - 109 mg/dL | [facility] | | | P[facility] | | | [facility] | | | | | | [facility] | | | | | | CENTER - | | | | | | LABORATORY | | + +---------+ + + + + + | Specimen | + + | Blood | + + + + + + + | Performing | Address | City/State/Zipcode | Phone Number | | Organization | | | | + + + + + | [facility] | [address] | [place] | [phone] | | [facility] | | [address] | | | - LABORATORY | | | | + + + + + POC Glucose (12/08/2018 6:50 AM PDT) + +---------+ + + + | Component | Value | Ref Range | Performed | Pathologist | | | | | At | Signature | + +---------+ + + + | Glucose, | 112 (H) | 70 - 109 mg/dL | [facility] | | | POC | | | [facility] | | | | | | MEDICAL | | | | | | CENTER - | | | | | | LABORATORY | | + +---------+ + + + + + | Specimen | + + | Blood | + + + + + + + | Performing | Address | City/State/Zipcode | Phone Number | | Organization | | | | + + + + + | [facility] | [address] | [place] | [phone] | | [facility] | | [address] | | | - LABORATORY | | | | + + + + + POC Glucose (12/07/2018 4:49 PM PDT) + +---------+ + + + | Component | Value | Ref Range | Performed | Pathologist | | | | | At | Signature | + +---------+ + + + | Glucose, | 149 (H) | 70 - 109 mg/dL | [facility] | | | P[facility] | | | [facility] | | | | | | [facility] | | | | | | CENTER - | | | | | | LABORATORY | | + +---------+ + + + + + | Specimen | + + | Blood | + + + + + + + | Performing | Address | City/State/Zipcode | Phone Number | | Organization | | | | + + + + + | [facility] | [address] | [place] | [phone] | | [facility] | | [address] | | | - LABORATORY | | | | + + + + + Extra Green Top Tube (12/07/2018 7:15 AM PDT) + +-------+ + + + | Component | Value | Ref Range | Performed | Pathologist | | | | | At | Signature | + +-------+ + + + | Extra Green | Done | | [facility] | | | Top Tube | | | [facility] | | | | | | [facility] | | | | | | CENTER - | | | | | | LABORATORY | | + +-------+ + + + + + | Specimen | + + | Blood | + + + + + + + | Performing | Address | City/State/Zipcode | Phone Number | | Organization | | | | + + + + + | [facility] | [address] | [place] | [phone] | | [facility] | | [address] | | | - LABORATORY | | | | + + + + + CBC no Differential (12/07/2018 6:34 AM PDT) + + + + + + | Component | Value | Ref Range | Performed | Pathologist | | | | | At | Signature | + + + + + + | White Blood | 6.0 | 4.0 - 11.0 K/uL | [facility] | | | Cells | | | [facility] | | | | | | MEDICAL | | | | | | CENTER - | | | | | | LABORATORY | | + + + + + + | Red Blood | 3.50 (L) | 3.70 - 5.20 | [facility] | | | Cells | | M/uL | [facility] | | | | | | MEDICAL | | | | | | CENTER - | | | | | | LABORATORY | | + + + + + + | Hemoglobin | 10.4 (L) | 11.5 - 16.0 | [facility] | | | | | g/dL | [facility] | | | | | | [facility]ICAL | | | | | | CENTER - | | | | | | LABORATORY | | + + + + + + | Hematocrit | 33.5 (L) | 34.0 - 47.0 % | [facility] | | | | | | [facility] | | | | | | [facility] | | | | | | CENTER - | | | | | | LABORATORY | | + + + + + + | MCV | 95.7 | 83.0 - 101.0 fL | [facility] | | | | | | [facility] | | | | | | [facility]ICAL | | | | | | CENTER - | | | | | | LABORATORY | | + + + + + + | MCH | 29.7 | 28.0 - 35.0 pg | [facility] | | | | | | [facility] | | | | | | MEDICAL | | | | | | CENTER - | | | | | | LABORATORY | | + + + + + + | MCHC | 31.0 (L) | 32.0 - 36.0 | [facility] | | | | | g/dL | [facility] | | | | | | MEDICAL | | | | | | CENTER - | | | | | | LABORATORY | | + + + + + + | RDW-CV | 18.1 (H) | <15.0 % | [facility] | | | | | | [facility] | | | | | | MEDICAL | | | | | | CENTER - | | | | | | LABORATORY | | + + + + + + | RDW-SD | 63.3 (H) | 35.1 - 46.3 fL | [facility] | | | | | | [facility] | | | | | | MEDICAL | | | | | | CENTER - | | | | | | LABORATORY | | + + + + + + | Platelet | 177 | 140 - 440 K/uL | [facility] | | | Count | | | [facility] | | | | | | MEDICAL | | | | | | CENTER - | | | | | | LABORATORY | | + + + + + + | MPV | 9.7 | 6.5 - 12.4 fL | [facility] | | | | | | [facility] | | | | | | [facility] | | | | | | CENTER - | | | | | | LABORATORY | | + + + + + + | % nRBC | 0 | 0 - 2 per 100 | [facility] | | | | | WBC's | [facility] | | | | | | MEDICAL | | | | | | CENTER - | | | | | | LABORATORY | | + + + + + + | Absolute | 0.00 | 0.00 - 0.01 | [facility] | | | nRBC | | K/uL | [facility] | | | | | | MEDICAL | | | | | | CENTER - | | | | | | LABORATORY | | + + + + + + + + | Specimen | + + | Blood | + + + + + + + | Performing | Address | City/State/Zipcode | Phone Number | | Organization | | | | + + + + + | [facility] | [address] | [place] | [phone] | | [facility] | | [address] | | | - LABORATORY | | | | + + + + + POC Glucose (12/07/2018 6:21 AM PDT) + +---------+ + + + | Component | Value | Ref Range | Performed | Pathologist | | | | | At | Signature | + +---------+ + + + | Glucose, | 126 (H) | 70 - 109 mg/dL | [facility] | | | POC | | | [facility] | | | | | | MEDICAL | | | | | | CENTER - | | | | | | LABORATORY | | + +---------+ + + + + + | Specimen | + + | Blood | + + + + + + + | Performing | Address | City/State/Zipcode | Phone Number | | Organization | | | | + + + + + | [facility] | [address] | [place] | [phone] | | [facility] | | [address] | | | - LABORATORY | | | | + + + + + POC Glucose (12/06/2018 5:16 PM PDT) + +---------+ + + + | Component | Value | Ref Range | Performed | Pathologist | | | | | At | Signature | + +---------+ + + + | Glucose, | 183 (H) | 70 - 109 mg/dL | [facility] | | | POC | | | [facility] | | | | | | MEDICAL | | | | | | CENTER - | | | | | | LABORATORY | | + +---------+ + + + + + | Specimen | + + | Blood | + + + + + + + | Performing | Address | City/State/Zipcode | Phone Number | | Organization | | | | + + + + + | [facility] | [address] | [place] | [phone] | | [facility] | | [address] | | | - LABORATORY | | | | + + + + + POC Glucose (12/06/2018 11:47 AM PDT) + +---------+ + + + | Component | Value | Ref Range | Performed | Pathologist | | | | | At | Signature | + +---------+ + + + | Glucose, | 142 (H) | 70 - 109 mg/dL | [facility] | | P[facility] | | | [facility] | | | | | | MEDICAL | | | | | | CENTER - | | | | | | LABORATORY | | + +---------+ + + + + + | Specimen | + + | Blood | + + + + + + + | Performing | Address | City/State/Zipcode | Phone Number | | Organization | | | | + + + + + | [facility] | [address] | [place] | [phone] | | [facility] | | [address] | | | - LABORATORY | | | | + + + + + POC Glucose (12/06/2018 6:04 AM PDT) + +---------+ + + + | Component | Value | Ref Range | Performed | Pathologist | | | | | At | Signature | + +---------+ + + + | Glucose, | 129 (H) | 70 - 109 mg/dL | [facility] | | [facility] | | | | | | MEDICAL | | | | | | CENTER - | | | | | | LABORATORY | | + +---------+ + + + + + | Specimen | + + | Blood | + + + + + + + | Performing | Address | City/State/Zipcode | Phone Number | | Organization | | | | + + + + + | [facility] | [address] | [place] | [phone] | | [facility] | | [address] | | | - LABORATORY | | | | + + + + + Parathyroid Hormone, Intact (12/06/2018 5:49 AM PDT) + +---------+ + + + | Component | Value | Ref Range | Performed | Pathologist | | | | | At | Signature | + +---------+ + + + | PTH Intact | 205 (H) | 19 - 88 pg/mL | [facility] | | | | | | MEDICAL | | | | | | CENTER - | | | | | | LABORATORY | | + +---------+ + + + + + | Specimen | + + | Blood | + + + + + + + | Performing | Address | City/State/Zipcode | Phone Number | | Organization | | | | + + + + + | [facility] | [address] | [place] | [phone] | | [facility] | | [address] | | | - LABORATORY | | | | + + + + + Hemoglobin A1C (12/06/2018 5:49 AM PDT) + +---------+ + + + | Component | Value | Ref Range | Performed | Pathologist | | | | | At | Signature | + +---------+ + + + | Hemoglobin | 6.6 (H) | 4.3 - 6.0 % | [facility] | | | A1c | | | [facility] | | | | | | MEDICAL | | | | | | CENTER - | | | | | | LABORATORY | | + +---------+ + + + | Estimated | 143 | mg/dL | [facility] | | | Average | | | [facility] | | | Glucose | | | MEDICAL | | | | | | CENTER - | | | | | | LABORATORY | | + +---------+ + + + + + | Specimen | + + | Blood | + + + + + + + | Performing | Address | City/State/Zipcode | Phone Number | | Organization | | | | + + + + + | [facility] | [address] | [place] | [phone] | | [facility] | | [address] | | | - LABORATORY | | | | + + + + + CBC no Differential (12/06/2018 5:49 AM PDT) + + + + + + | Component | Value | Ref Range | Performed | Pathologist | | | | | At | Signature | + + + + + + | White Blood | 7.8 | 4.0 - 11.0 K/uL | [facility] | | | Cells | | | [facility] | | | | | | [facility] | | | | | | [facility] - | | | | | | LABORATORY | | + + + + + + | Red Blood | 3.48 (L) | 3.70 - 5.20 | [facility] | | | Cells | | M/uL | [facility] | | | | | | MEDICAL | | | | | | CENTER - | | | | | | LABORATORY | | + + + + + + | Hemoglobin | 10.3 (L) | 11.5 - 16.0 | [facility] | | | | | g/dL | [facility] | | | | | | MEDICAL | | | | | | CENTER - | | | | | | LABORATORY | | + + + + + + | Hematocrit | 33.5 (L) | 34.0 - 47.0 % | [facility] | | | | | | [facility] | | | | | | [facility] | | | | | | C[facility] - | | | | | | LABORATORY | | + + + + + + | MCV | 96.3 | 83.0 - 101.0 fL | [facility] | | | | | | [facility] | | | | | | [facility] | | | | | | CENTER - | | | | | | LABORATORY | | + + + + + + | MCH | 29.6 | 28.0 - 35.0 pg | [facility] | | | | | | [facility] | | | | | | [facility] | | | | | | CENTER - | | | | | | LABORATORY | | + + + + + + | MCHC | 30.7 (L) | 32.0 - 36.0 | [facility] | | | | | g/dL | [facility] | | | | | | MEDICAL | | | | | | CENTER - | | | | | | LABORATORY | | + + + + + + | RDW-CV | 18.5 (H) | <15.0 % | [facility] | | | | | | [facility] | | | | | | [facility] | | | | | | CENTER - | | | | | | LABORATORY | | + + + + + + | RDW-SD | 64.3 (H) | 35.1 - 46.3 fL | [facility] | | | | | | [facility] | | | | | | [facility] | | | | | | CENTER - | | | | | | LABORATORY | | + + + + + + | Platelet | 183 | 140 - 440 K/uL | [facility] | | | Count | | | [facility] | | | | | | [facility] | | | | | | CENTER - | | | | | | LABORATORY | | + + + + + + | MPV | 9.9 | 6.5 - 12.4 fL | [facility] | | | | | | [facility] | | | | | | [facility] | | | | | | CENTER - | | | | | | LABORATORY | | + + + + + + | % nRBC | 0 | 0 - 2 per 100 | [facility] | | | | | WBC's | [facility] | | | | | | MEDICAL | | | | | | CENTER - | | | | | | LABORATORY | | + + + + + + | Absolute | 0.00 | 0.00 - 0.01 | [facility] | | | nRBC | | K/uL | [facility] | | | | | | MEDICAL | | | | | | CENTER - | | | | | | LABORATORY | | + + + + + + + + | Specimen | + + | Blood | + + + + + + + | Performing | Address | City/State/Zipcode | Phone Number | | Organization | | | | + + + + + | [facility] | [address] | [place] | [phone] | | [facility] | | [address] | | | - LABORATORY | | | | + + + + + POC Glucose (12/05/2018 5:11 PM PDT) + +---------+ + + + | Component | Value | Ref Range | Performed | Pathologist | | | | | At | Signature | + +---------+ + + + | Glucose, | 186 (H) | 70 - 109 mg/dL | [facility] | | | POC | | | [facility] | | | | | | MEDICAL | | | | | | CENTER - | | | | | | LABORATORY | | + +---------+ + + + + + | Specimen | + + | Blood | + + + + + + + | Performing | Address | City/State/Zipcode | Phone Number | | Organization | | | | + + + + + | [facility] | [address] | [place] | [phone] | | [facility] | | [address] | | | - LABORATORY | | | | + + + + + POC Glucose (12/05/2018 11:58 AM PDT) + +---------+ + + + | Component | Value | Ref Range | Performed | Pathologist | | | | | At | Signature | + +---------+ + + + | Glucose, | 183 (H) | 70 - 109 mg/dL | [facility] | | | POC | | | [facility] | | | | | | MEDICAL | | | | | | CENTER - | | | | | | LABORATORY | | + +---------+ + + + + + | Specimen | + + | Blood | + + + + + + + | Performing | Address | City/State/Zipcode | Phone Number | | Organization | | | | + + + + + | [facility] | [address] | [place] | [phone] | | [facility] | | [address] | | | - LABORATORY | | | | + + + + + TSH (12/05/2018 6:05 AM PDT) + +-------+ + + + | Component | Value | Ref Range | Performed | Pathologist | | | | | At | Signature | + +-------+ + + + | TSH | 3.78 | 0.55 - 4.78 | [facility] | | | | | uIU/mL | [facility] | | | | | | MEDICAL | | | | | | CENTER - | | | | | | LABORATORY | | + +-------+ + + + + + | Specimen | + + | Blood | + + + + + + + | Performing | Address | City/State/Zipcode | Phone Number | | Organization | | | | + + + + + | [facility] | [address] | [place] | [phone] | | [facility] | | [address] | | | - LABORATORY | | | | + + + + + Ferritin (12/05/2018 6:05 AM PDT) + +---------+ + + + | Component | Value | Ref Range | Performed | Pathologist | | | | | At | Signature | + +---------+ + + + | FERRITIN | 441 (H) | 7 - 271 ng/mL | [facility] | | | | | | [facility] | | | | | | MEDICAL | | | | | | CENTER - | | | | | | LABORATORY | | + +---------+ + + + + + | Specimen | + + | Blood | + + + + + + + | Performing | Address | City/State/Zipcode | Phone Number | | Organization | | | | + + + + + | [facility] | [address] | [place] | [phone] | | [facility] | | [address] | | | - LABORATORY | | | | + + + + + Iron and Transferrin (12/05/2018 6:05 AM PDT) + + + + + + | Component | Value | Ref Range | Performed | Pathologist | | | | | At | Signature | + + + + + + | Iron | 14 (L) | 50 - 170 ug/dL | [facility] | | | | | | [facility] | | | | | | MEDICAL | | | | | | CENTER - | | | | | | LABORATORY | | + + + + + + | TRANSFERRIN | 103.0 (L) | 250.0 - 380.0 | [facility] | | | | | mg/dL | [facility] | | | | | | MEDICAL | | | | | | CENTER - | | | | | | LABORATORY | | + + + + + + | TIBC | 144 (L) | 235 - 425 ug/dL | [facility] | | | | | | [facility] | | | | | | MEDICAL | | | | | | CENTER - | | | | | | LABORATORY | | + + + + + + | % | 9.7 (L) | 15.0 - 50.0 % | [facility] | | | SATURATION | | | [facility] | | | | | | MEDICAL | | | | | | CENTER - | | | | | | LABORATORY | | + + + + + + + + | Specimen | + + | Blood | + + + + + + + | Performing | Address | City/State/Zipcode | Phone Number | | Organization | | | | + + + + + | [facility] | [address] | [place] | [phone] | | [facility] | | [address] | | | - LABORATORY | | | | + + + + + Magnesium (12/05/2018 6:05 AM PDT) + +-------+ + + + | Component | Value | Ref Range | Performed | Pathologist | | | | | At | Signature | + +-------+ + + + | Magnesium | 2.1 | 1.6 - 2.6 mg/dL | [facility] | | | | | | [facility] | | | | | | MEDICAL | | | | | | CENTER - | | | | | | LABORATORY | | + +-------+ + + + + + | Specimen | + + | Blood | + + + + + + + | Performing | Address | City/State/Zipcode | Phone Number | | Organization | | | | + + + + + | [facility] | [address] | [place] | [phone] | | [facility] | | [address] | | | - LABORATORY | | | | + + + + + Phosphorus (12/05/2018 6:05 AM PDT) + +---------+ + + + | Component | Value | Ref Range | Performed | Pathologist | | | | | At | Signature | + +---------+ + + + | Phosphorus | 6.3 (H) | 2.4 - 5.1 mg/dL | [facility] | | | | | | [facility] | | | | | | MEDICAL | | | | | | CENTER - | | | | | | LABORATORY | | + +---------+ + + + + + | Specimen | + + | Blood | + + + + + + + | Performing | Address | City/State/Zipcode | Phone Number | | Organization | | | | + + + + + | [facility] | [address] | [place] | [phone] | | [facility] | | [address] | | | - LABORATORY | | | | + + + + + Basic Metabolic Panel (12/05/2018 6:05 AM PDT) + + + + + + | Component | Value | Ref Range | Performed | Pathologist | | | | | At | Signature | + + + + + + | Na | 139 | 136 - 145 | [facility] | | | | | mmol/L | [facility] | | | | | | MEDICAL | | | | | | CENTER - | | | | | | LABORATORY | | + + + + + + | K | 4.4 | 3.4 - 5.1 | [facility] | | | | | mmol/L | [facility] | | | | | | MEDICAL | | | | | | CENTER - | | | | | | LABORATORY | | + + + + + + | Cl | 105 | 98 - 107 mmol/L | [facility] | | | | | | [facility] | | | | | | MEDICAL | | | | | | CENTER - | | | | | | LABORATORY | | + + + + + + | CO2 | 26 | 20 - 31 mmol/L | [facility] | | | | | | [facility] | | | | | | MEDICAL | | | | | | CENTER - | | | | | | LABORATORY | | + + + + + + | Anion Gap | 8 | 3 - 16 mmol/L | [facility] | | | | | | [facility] | | | | | | MEDICAL | | | | | | CENTER - | | | | | | LABORATORY | | + + + + + + | Glucose | 186 (H) | 60 - 106 mg/dL | [facility] | | | | | | [facility] | | | | | | MEDICAL | | | | | | CENTER - | | | | | | LABORATORY | | + + + + + + | BUN | 26 (H) | 9 - 23 mg/dL | [facility] | | | | | | [facility] | | | | | | MEDICAL | | | | | | CENTER - | | | | | | LABORATORY | | + + + + + + | Creatinine | 4.35 (H) | 0.55 - 1.02 | [facility] | | | | | mg/dL | [facility] | | | | | | MEDICAL | | | | | | CENTER - | | | | | | LABORATORY | | + + + + + + | eGFR if not | 10 (L) | >=60 | [facility] | | | | | mL/min/1.73m2 | [facility] | | | [facility] | | | MEDICAL | | | | | | CENTER - | | | | | | LABORATORY | | + + + + + + | Calcium | 8.6 (L) | 8.7 - 10.4 | [facility] | | | | | mg/dL | [facility] | | | | | | MEDICAL | | | | | | CENTER - | | | | | | LABORATORY | | + + + + + + | BUN/Creatin | 6.0 | | [facility] | | | ine Ratio | | | [facility] | | | | | | MEDICAL | | | | | | CENTER - | | | | | | LABORATORY | | + + + + + + + + | Specimen | + + | Blood | + + + + + + + | Performing | Address | City/State/Zipcode | Phone Number | | Organization | | | | + + + + + | [facility] | [address] | [place] | [phone] | | [facility] | | [address] | | | - LABORATORY | | | | + + + + + CBC no Differential (12/05/2018 6:05 AM PDT) + + + + + + | Component | Value | Ref Range | Performed | Pathologist | | | | | At | Signature | + + + + + + | White Blood | 8.9 | 4.0 - 11.0 K/uL | [facility] | | | Cells | | | [facility] | | | | | | MEDICAL | | | | | | CENTER - | | | | | | LABORATORY | | + + + + + + | Red Blood | 3.77 | 3.70 - 5.20 | [facility] | | | Cells | | M/uL | [facility] | | | | | | MEDICAL | | | | | | CENTER - | | | | | | LABORATORY | | + + + + + + | Hemoglobin | 11.3 (L) | 11.5 - 16.0 | [facility] | | | | | g/dL | [facility] | | | | | | MEDICAL | | | | | | CENTER - | | | | | | LABORATORY | | + + + + + + | Hematocrit | 35.7 | 34.0 - 47.0 % | [facility] | | | | | | [facility] | | | | | | MEDICAL | | | | | | CENTER - | | | | | | LABORATORY | | + + + + + + | MCV | 94.7 | 83.0 - 101.0 fL | [facility] | | | | | | [facility] | | | | | | MEDICAL | | | | | | CENTER - | | | | | | LABORATORY | | + + + + + + | MCH | 30.0 | 28.0 - 35.0 pg | [facility] | | | | | | [facility] | | | | | | MEDICAL | | | | | | CENTER - | | | | | | LABORATORY | | + + + + + + | MCHC | 31.7 (L) | 32.0 - 36.0 | [facility] | | | | | g/dL | [facility] | | | | | | MEDICAL | | | | | | CENTER - | | | | | | LABORATORY | | + + + + + + | RDW-CV | 18.3 (H) | <15.0 % | [facility] | | | | | | [facility] | | | | | | MEDICAL | | | | | | CENTER - | | | | | | LABORATORY | | + + + + + + | RDW-SD | 62.9 (H) | 35.1 - 46.3 fL | [facility] | | | | | | [facility] | | | | | | MEDICAL | | | | | | CENTER - | | | | | | LABORATORY | | + + + + + + | Platelet | 232 | 140 - 440 K/uL | [facility] | | | Count | | | [facility] | | | | | | MEDICAL | | | | | | CENTER - | | | | | | LABORATORY | | + + + + + + | MPV | 10.7 | 6.5 - 12.4 fL | [facility] | | | | | | [facility] | | | | | | MEDICAL | | | | | | CENTER - | | | | | | LABORATORY | | + + + + + + | Immature | 2.9Comment: Low PLT + | 0.9 - 11.2 % | [facility] | | | Platelet | Low IPF are consistent | | [facility] | | | Fraction | with a production | | MEDICAL | | | | disorder. Low PLT + High | | CENTER - | | | | IPF are consistent with | | LABORATORY | | | | destruction mechanism. | | | | + + + + + + | % nRBC | 0 | 0 - 2 per 100 | [facility] | | | | | WBC's | [facility] | | | | | | MEDICAL | | | | | | CENTER - | | | | | | LABORATORY | | + + + + + + | Absolute | 0.00 | 0.00 - 0.01 | [facility] | | | nRBC | | K/uL | [facility] | | | | | | MEDICAL | | | | | | CENTER - | | | | | | LABORATORY | | + + + + + + + + | Specimen | + + | Blood | + + + + + + + | Performing | Address | City/State/Zipcode | Phone Number | | Organization | | | | + + + + + | [facility] | [address] | [place] | [phone] | | [facility] | | [address] | | | - LABORATORY | | | | + + + + + POC Glucose (12/05/2018 2:58 AM PDT) + +---------+ + + + | Component | Value | Ref Range | Performed | Pathologist | | | | | At | Signature | + +---------+ + + + | Glucose, | 209 (H) | 70 - 109 mg/dL | [facility] | | | POC | | | [facility] | | | | | | MEDICAL | | | | | | CENTER - | | | | | | LABORATORY | | + +---------+ + + + + + | Specimen | + + | Blood | + + + + + + + | Performing | Address | City/State/Zipcode | Phone Number | | Organization | | | | + + + + + | [facility] | [address] | [place] | [phone] | | [facility] | | [address] | | | - LABORATORY | | | | + + + + + POC Glucose (12/04/2018 8:44 PM PDT) + +---------+ + + + | Component | Value | Ref Range | Performed | Pathologist | | | | | At | Signature | + +---------+ + + + | Glucose, | 164 (H) | 70 - 109 mg/dL | [facility] | | | POC | | | [facility] | | | | | | MEDICAL | | | | | | CENTER - | | | | | | LABORATORY | | + +---------+ + + + + + | Specimen | + + | Blood | + + + + + + + | Performing | Address | City/State/Zipcode | Phone Number | | Organization | | | | + + + + + | [facility] | [address] | [place] | [phone] | | [facility] | | [address] | | | - LABORATORY | | | | + + + + + POC Glucose (12/04/2018 5:15 PM PDT) + +---------+ + + + | Component | Value | Ref Range | Performed | Pathologist | | | | | At | Signature | + +---------+ + + + | Glucose, | 128 (H) | 70 - 109 mg/dL | [facility] | | | POC | | | [facility] | | | | | | MEDICAL | | | | | | CENTER - | | | | | | LABORATORY | | + +---------+ + + + + + | Specimen | + + | Blood | + + + + + + + | Performing | Address | City/State/Zipcode | Phone Number | | Organization | | | | + + + + + | [facility] | [address] | [place], [place] | [phone] | | [facility] | | [address] | | | - LABORATORY | | | | + + + + + XR Hip Right 2-3 Views (12/04/2018 4:59 PM PDT) + + | Specimen | + + | | + + + + + | Narrative | Performed At | + + + | XR HIP RIGHT 2-3 VIEWS 12/04/2018 4:00 PM HISTORY: intra op. | [facility] | | COMPARISON: None. FINDINGS: Intraoperative x-rays show placement | | | of 3 screws into the right femoral neck. IMPRESSION - ORIF of | | | right femoral neck. Dictated and Signed by: Salvatore Nunez MD | | | Electronically signed: 12/04/2018 7:01 PM | | + + + + + | Procedure Note | + + | [place], Rad Results In - 12/04/2018 7:04 PM PDT XR HIP RIGHT 2-3 VIEWS 12/04/2018 4:00 | | PMHISTORY: intra op.COMPARISON: None.FINDINGS:Intraoperative x-rays show placement of 3 | | screws into the right femoral neck.IMPRESSION -ORIF of right femoral neck.Dictated and | | Signed by: Salvatore Nunez MD Electronically signed: 12/04/2018 7:01 PM | |COMPARISON: None. | | | |FINDINGS: | |Intraoperative x-rays show placement of 3 screws into the right femoral neck. | | | |IMPRESSION - | |ORIF of right femoral neck. | | | |Dictated and Signed by: Salvatore Nunez MD | | Electronically signed: 12/04/2018 7:01 PM | + + + +---------+ + + | Performing | Address | City/State/Zipcode | Phone Number | | Organization | | | | + +---------+ + + | [facility] | | | | + +---------+ + + [place] Jann-Cosme Stats No Charge (12/04/2018 4:58 PM PDT) + + | Specimen | + + | | + + + + + | Narrative | Performed At | + + + | This exam has been auto-finalized. It was entered for statistical | [facility] | | purposes only. | | + + + + +---------+ + + | Performing | Address | City/State/Zipcode | Phone Number | | Organization | | | | + +---------+ + + | [facility] | | | | + +---------+ + + XR Hip Right 2-3 Views (12/04/2018 2:27 PM PDT) + + | Specimen | + + | | + + + + + | Narrative | Performed At | + + + | XR HIP RIGHT 2-3 VIEWS 12/04/2018 1:56 PM HISTORY: HIP PAIN. | [facility] | | COMPARISON: None. FINDINGS: There is a right hip subcapital | | | fracture with overlap. Mild degenerative changes are noted of the | | | hips. Extensive lumbar spondylosis is seen. There is diffuse | | | osteopenia. IMPRESSION - Right hip subcapital fracture. | | | Dictated and Signed by: Salvatore Nunez MD Electronically signed: | | | 12/04/2018 6:59 PM | | + + + + + | Procedure Note | + + | [place], Rad Results In - 12/04/2018 7:03 PM PDT XR HIP RIGHT 2-3 VIEWS 12/04/2018 1:56 | | PMHISTORY: HIP PAIN.COMPARISON: None.FINDINGS:There is a right hip subcapital fracture | | with overlap. Mild degenerative changesare noted of the hips. Extensive lumbar | | spondylosis is seen. There is diffuseosteopenia.IMPRESSION -Right hip subcapital | | fracture.Dictated and Signed by: Salvatore Nunez MD Electronically signed: 12/04/2018 6:59 | | PM | |FINDINGS: | |There is a right hip subcapital fracture with overlap. Mild degenerative changes | |are noted of the hips. Extensive lumbar spondylosis is seen. There is diffuse | |osteopenia. | | | |IMPRESSION - | |Right hip subcapital fracture. | | | |Dictated and Signed by: Salvatore Nunez MD | | Electronically signed: 12/04/2018 6:59 PM | + + + +---------+ + + | Performing | Address | City/State/Zipcode | Phone Number | | Organization | | | | + +---------+ + + | [facility] | | | | + +---------+ + + XR Chest AP Portable (12/04/2018 2:27 PM PDT) + + | Specimen | + + | | + + + + + | Narrative | Performed At | + + + | XR CHEST AP PORTABLE 12/04/2018 1:56 PM HISTORY: HIP PAIN. | [facility] | | COMPARISON: Multiple priors. Findings: The heart is borderline | | | enlarged. There is atherosclerosis of the aorta. Mediastinum | | | demonstrates no acute findings. Pulmonary vasculature is prominent | | | with cephalization. There is a small left pleural effusion with | | | moderate compressive atelectasis. Overlapping pneumonia in this | | | region cannot be excluded. There is extensive spondylosis. | | | IMPRESSION - Findings consistent with fluid overload or CHF. | | | Dictated and Signed by: Salvatore Nunez MD Electronically signed: | | | 12/04/2018 7:01 PM | | + + + + + | Procedure Note | + + | [place], Rad Results In - 12/04/2018 7:04 PM PDT XR CHEST AP PORTABLE 12/04/2018 1:56 PM | | | | HISTORY: HIP PAIN. | | | | COMPARISON: Multiple priors. | | | | Findings: | | The heart is borderline enlarged. There is atherosclerosis of the aorta. | | Mediastinum demonstrates no acute findings. Pulmonary vasculature is prominent | | with cephalization. There is a small left pleural effusion with moderate | | compressive atelectasis. Overlapping pneumonia in this region cannot be | | excluded. There is extensive spondylosis. | | | | IMPRESSION - | | Findings consistent with fluid overload or CHF. | | | | Dictated and Signed by: Salvatore Nunez MD | | Electronically signed: 12/04/2018 7:01 PM | + + + +---------+ + + | Performing | Address | City/State/Zipcode | Phone Number | | Organization | | | | + +---------+ + + | [facility] | | | | + +---------+ + + Procalcitonin (12/04/2018 2:01 PM PDT) + + + + + + | Component | Value | Ref Range | Performed | Pathologist | | | | | At | Signature | + + + + + + | Procalciton | 0.09 | <=0.50 ng/mL | [facility] | | | in | | | [facility] | | | | | | MEDICAL | | | | | | CENTER - | | | | | | LABORATORY | | + + + + + + | Comment | Comment: < 0.50 | | [facility] | | | | ng/mL:Procalcitonin | | [facility] | | | | levels below 0.50 ng/mL | | MEDICAL | | | | on the first day of | | CENTER - | | | | admission represents a | | LABORATORY | | | | low risk for progression | | | | | | to severe sepsis and/or | | | | | | septic shock, however | | | | | | these do not exclude an | | | | | | infection, because | | | | | | localized infections | | | | | | (without systemic signs) | | | | | | may also be associated | | | | | | with such low levels. | | | | | | > 2.00 | | | | | | ng/mL:Procalcitonin | | | | | | levels above 2.00 ng/mL | | | | | | on the first day of | | | | | | admission represents a | | | | | | high risk for | | | | | | progression to severe | | | | | | sepsis and/or septic | | | | | | shock. If the | | | | | | procalcitonin | | | | | | measurement is performed | | | | | | shortly after the | | | | | | systemic infection | | | | | | process has started | | | | | | (usually less than 6 | | | | | | hours), these values may | | | | | | still be low. As | | | | | | various non-infectious | | | | | | conditions are known to | | | | | | induce procalcitonin as | | | | | | well, procalcitonin | | | | | | levels between 0.50 | | | | | | ng/mL and 2.00 ng/mL | | | | | | should be reviewed | | | | | | carefully to take into | | | | | | account the specific | | | | | | clinical background and | | | | | | condition(s) of the | | | | | | individual patient. | | | | + + + + + + + + | Specimen | + + | Blood | + + + + + + + | Performing | Address | City/State/Zipcode | Phone Number | | Organization | | | | + + + + + | [facility] | [address] | [place] | [phone] | | [facility] | | [address] | | | - LABORATORY | | | | + + + + + Protime INR (12/04/2018 2:01 PM PDT) + + + + + + | Component | Value | Ref Range | Performed | Pathologist | | | | | At | Signature | + + + + + + | Prothrombin | 13.9 | 11.3 - 13.9 | [facility] | | | Time | | seconds | [facility] | | | | | | MEDICAL | | | | | | CENTER - | | | | | | LABORATORY | | + + + + + + | INR | 1.1Comment: Usual Oral | 0.9 - 1.1 | [facility] | | | | Anticoagulation Range: | | [facility] | | | | 2.0 - 3.0High | | MEDICAL | | | | Level Oral | | CENTER - | | | | Anticoagulation Range: | | LABORATORY | | | | 2.5 - 3.5 | | | | + + + + + + + + | Specimen | + + | Blood | + + + + + + + | Performing | Address | City/State/Zipcode | Phone Number | | Organization | | | | + + + + + | [facility] | [address] | [place] | [phone] | | [facility] | | [address] | | | - LABORATORY | | | | + + + + + PTT (12/04/2018 2:01 PM PDT) + +-------+ + + + | Component | Value | Ref Range | Performed | Pathologist | | | | | At | Signature | + +-------+ + + + | aPTT | 32 | 22 - 36 seconds | [facility] | | | | | | [facility] | | | | | | MEDICAL | | | | | | [facility] - | | | | | | LABORATORY | | + +-------+ + + + + + | Specimen | + + | Blood | + + + + + + + | Performing | Address | City/State/Zipcode | Phone Number | | Organization | | | | + + + + + | [facility] | [address] | [place] | [phone] | | [facility] | | [address] | | | - LABORATORY | | | | + + + + + Comprehensive Metabolic Panel (12/04/2018 2:01 PM PDT) + + + + + + | Component | Value | Ref Range | Performed | Pathologist | | | | | At | Signature | + + + + + + | Na | 138 | 136 - 145 | [facility] | | | | | mmol/L | [facility] | | | | | | [facility] | | | | | | C[facility] - | | | | | | LABORATORY | | + + + + + + | K | 3.4 | 3.4 - 5.1 | [facility] | | | | | mmol/L | [facility] | | | | | | [facility] | | | | | | [facility] - | | | | | | LABORATORY | | + + + + + + | Cl | 103 | 98 - 107 mmol/L | [facility] | | | | | | [facility] | | | | | | [facility] | | | | | | [facility] - | | | | | | LABORATORY | | + + + + + + | CO2 | 29 | 20 - 31 mmol/L | [facility] | | | | | | [facility] | | | | | | [facility] | | | | | | [facility] - | | | | | | LABORATORY | | + + + + + + | Anion Gap | 6 | 3 - 16 mmol/L | [facility] | | | [facility] | | [facility] | | | [facility] | | | | | | [facility] - | | | | | | LABORATORY | | + + + + + + | Glucose | 187 (H) | 60 - 106 mg/dL | [facility] | | | | | | [facility] | | | | | | [facility] | | | | | | [facility] - | | | | | | LABORATORY | | + + + + + + | BUN | 19 | 9 - 23 mg/dL | [facility] | | | | | | [facility] | | | | | | [facility] | | | | | | [facility] - | | | | | | LABORATORY | | + + + + + + | Creatinine | 3.97 (H) | 0.55 - 1.02 | [facility] | | | | | mg/dL | [facility] | | | | | | [facility] | | | | | | CENTER - | | | | | | LABORATORY | | + + + + + + | eGFR if not | 11 (L) | >=60 | [facility] | | | | | mL/min/1.73m2 | [facility] | | | [facility] | | | [facility] | | | | | | [facility] - | | | | | | LABORATORY | | + + + + + + | Calcium | 8.6 (L) | 8.7 - 10.4 | [facility] | | | | | mg/dL | [facility] | | | | | | [facility] | | | | | | C[facility] - | | | | | | LABORATORY | | + + + + + + | Albumin | 3.2 | 3.2 - 4.8 g/dL | [facility] | | | | | | [facility] | | | | | | [facility] | | | | | | C[facility] - | | | | | | LABORATORY | | + + + + + + | Bilirubin | 0.6 | 0.3 - 1.2 mg/dL | [facility] | | | Total | | | [facility] [facility] | | | | | | [facility] - | | | | | | LABORATORY | | + + + + + + | Total | 6.5 | 5.7 - 8.2 g/dL | [facility] | | | Protein | | | [facility] | [facility] | [facility] - | | | | | | LABORATORY | | + + + + + + | AST | 19 | 0 - 34 U/L | [facility] | | | | | | [facility] | [facility] - | | | | | | LABORATORY | | + + + + + + | ALT | 12 | 10 - 49 U/L | [facility] | [facility] - | | | | | | LABORATORY | | + + + + + + | Alkaline | 64 | 46 - 116 U/L | [facility] | | | Phosphatase | | | [facility] | [facility] | | [facility] | | | [facility] - | | | | | | LABORATORY | | + + + + + + | Globulin | 3.3 | 2.1 - 3.8 g/dL | [facility] | | | | | | [facility] | [facility] - | | | | | | LABORATORY | | + + + + + + | Albumin/Shereen | 1.0 | 0.8 - 1.9 | [facility] | | | bulin Ratio | | | [facility] | [facility] | | | | | | [facility] - | | | | | | LABORATORY | | + + + + + + | BUN/Creatin | 4.8 | | [facility] | | | ine Ratio | | | [facility] | | [facility] | [facility] | | | | | | [facility] - | | | | | | LABORATORY | | + + + + + + + + | Specimen | + + | Blood | + + + + + + + | Performing | Address | City/State/Zipcode | Phone Number | | Organization | | | | + + + + + | [facility] | [address] | [place] | [phone] | | [facility] | | [address] | | | - LABORATORY | | | | + + + + + CBC with Differential (12/04/2018 2:01 PM PDT) + + + + + + | Component | Value | Ref Range | Performed | Pathologist | | | | | At | Signature | + + + + + + | White Blood | 10.5 | 4.0 - 11.0 K/uL | [facility] | | | Cells | | | [facility] | [facility] | | | | | | [facility] - | | | | | | LABORATORY | | + + + + + + | Red Blood | 3.78 | 3.70 - 5.20 | [facility] | | | Cells | | M/uL | [facility] | [facility] | | | | | | [facility] - | | | | | | LABORATORY | | + + + + + + | Hemoglobin | 11.2 (L) | 11.5 - 16.0 | [facility] | | | | | g/dL | [facility] | | | [facility] | [facility] | | | | | | C[facility] - | | | | | | LABORATORY | | + + + + + + | Hematocrit | 35.9 | 34.0 - 47.0 % | [facility] | | | | | | [facility] | | | | | | [facility] - | | | | | | LABORATORY | | + + + + + + | MCV | 95.0 | 83.0 - 101.0 fL | [facility] | | | | | | [facility] | | | | | | [facility] - | | | | | | LABORATORY | | + + + + + + | MCH | 29.6 | 28.0 - 35.0 pg | [facility] | | | | | | [facility] | [facility] | [facility] | | | | | | [facility] - | | | | | | LABORATORY | | + + + + + + | MCHC | 31.2 (L) | 32.0 - 36.0 | [facility] | | | | | g/dL | [facility] | | | [facility] | [facility] | | | | | | C[facility] - | | | | | | LABORATORY | | + + + + + + | RDW-CV | 18.2 (H) | <15.0 % | [facility] | | | | | [facility] | | [facility] | | | | | | [facility] - | | | | | | LABORATORY | | + + + + + + | RDW-SD | 62.9 (H) | 35.1 - 46.3 fL | [facility] | | | | | [facility] | | [facility] | | | | | | [facility] - | | | | | | LABORATORY | | + + + + + + | Platelet | 245 | 140 - 440 K/uL | [facility] | | | Count | | | [facility] | | [facility] | [facility] | | | | | | [facility] - | | | | | | LABORATORY | | + + + + + + | MPV | 9.8 | 6.5 - 12.4 fL | [facility] | | | | | | [facility] | [facility] | | | | | | [facility] - | | | | | | LABORATORY | | + + + + + + | % | 83.2 (H) | 45.0 - 82.0 % | [facility] | | | Neutrophils | | | [facility] | | | | | | [facility] | | | | | | CENTER - | | | | | | LABORATORY | | + + + + + + | % | 10.8 (L) | 20.0 - 45.0 % | [facility] | | | Lymphocytes | | | [facility] | | | | | | [facility] | | | | | | CENTER - | | | | | | LABORATORY | | + + + + + + | % Monocytes | 3.6 (L) | 4.0 - 12.0 % | [facility] | | | | | | [facility] | [facility] | [facility] | | | | | | C[facility] - | | | | | | LABORATORY | | + + + + + + | % | 1.7 | 0.0 - 5.0 % | [facility] | | | Eosinophils | | | [facility] | | | | | | [facility] | | | | | | CENTER - | | | | | | LABORATORY | | + + + + + + | % Basophils | 0.2 | 0.0 - 1.0 % | [facility] | | | | | | [facility] | | | | | | [facility] | | | | | | CENTER - | | | | | | LABORATORY | | + + + + + + | % Immature | 0.5 (H)Comment: | 0.0 - 0.4 % | [facility] | | | Granulocyte | Preliminary studIes have | | [facility] | | | s | indicated the IG% | | MEDICAL | | | | and/or IG# show promise | | CENTER - | | | | as an early screen for | | LABORATORY | | | | infection. | | | | + + + + + + | Absolute | 8.69 (H) | 1.80 - 8.50 | [facility] | | | Neutrophils | | K/uL | [facility] | | | | | | [facility] | | | | | | CENTER - | | | | | | LABORATORY | | + + + + + + | Absolute | 1.13 | 0.60 - 3.20 | [facility] | | | Lymphocytes | | K/uL | [facility] | | | | | | [facility] | | | | | | CENTER - | | | | | | LABORATORY | | + + + + + + | Absolute | 0.38 | 0.00 - 1.00 | [facility] | | | Monocytes | | K/uL | [facility] | | | | | | [facility] | | | | | | CENTER - | | | | | | LABORATORY | | + + + + + + | Absolute | 0.18 | 0.00 - 0.40 | [facility] | | | Eosinophils | | K/uL | [facility] | | | | | | [facility] | | | | | | CENTER - | | | | | | LABORATORY | | + + + + + + | Absolute | 0.02 | 0.00 - 0.10 | [facility] | | | Basophils | | K/uL | [facility] | | | | | | [facility] | | | | | | CENTER - | | | | | | LABORATORY | | + + + + + + | Absolute | 0.05 (H) | 0.00 - 0.03 | [facility] | | | Immature | | K/uL | [facility] | | | Granulocyte | | | MEDICAL | | | s | | | CENTER - | | | | | | LABORATORY | | + + + + + + | % nRBC | 0 | 0 - 2 per 100 | [facility] | | | | | WBC's | [facility] | | | | | | [facility] | | | | | | CENTER - | | | | | | LABORATORY | | + + + + + + | Absolute | 0.00 | 0.00 - 0.01 | [facility] | | | nRBC | | K/uL | [facility] | | | | | | MEDICAL | | | | | | CENTER - | | | | | | LABORATORY | | + + + + + + + + | Specimen | + + | Blood | + + + + + + + | Performing | Address | City/State/Zipcode | Phone Number | | Organization | | | | + + + + + | [facility] | [address] | [place] | [phone] | | [facility] | | [address] | | | - LABORATORY | | | | + + + + + documented in this encounter Visit Diagnoses + + | Diagnosis | + + | Closed fracture of neck of right femur, initial encounter (HCC) | + + | Non-compliance Personal history of noncompliance with medical treatment, presenting | | hazards to health | + + | End stage renal disease (HCC) End stage renal disease | + + | Type 2 diabetes mellitus with stage 4 chronic kidney disease, with long-term current | | use of insulin (HCC) | + + | Closed fracture of right hip, initial encounter (HCC) | + + | Type 2 DM with CKD stage 5 and hypertension (HCC) | + + | Renal bone disease Renal osteodystrophy | + + | Physical deconditioning Debility, unspecified | + + | Anemia of chronic renal failure, stage 5 (HCC) | + + | Closed fracture of right hip with routine healing, subsequent encounter | + + documented in this encounter Administered Medications + +--------+---------+------+------+------+ | Medication Order | MAR | Action | Dose | Rate | Site | | | Action | Date | | | | + +--------+---------+------+------+------+ + +---+ | albumin 25% IVPB 12.5 g 12.5 | | | g, Intravenous, Administer over | | | 30 Minutes, EVERY 1 HOUR PRN, SBP | | | < 95 mmHg on HD., Starting Wed | | | 12/07/18 at 0654, While on NxStage | | | Tx., Dialysis | | + +---+ | | | + +---+ + +-------+ +--------+---+---+ | albuterol 2.5 mg/3 mL nebulizer | Given | 12/05/19 | 2.5 mg | | | | solution 2.5 mg 2.5 mg, | | 19 6:09 | | | | | Nebulization, ONCE PRN, Wheezing, | | PM PDT | | | | | Starting 12/04/18 at 1739, | | | | | | | For 1 dose, Notify anesthesia if | | | | | | | patient is wheezing and does not | | | | | | | have a history of asthma or COPD | | | | | | | or current smoking., | | | | | | | Recovery/Phase I | | | | | | + +-------+ +--------+---+---+ +---+---+ | | | +---+---+ + +-------+ +-------+---+---+ | albuterol-ipratropium 2.5-0.5 | Given | 12/06/19 | 3 mLs | | | | mg/3 mL nebulizer solution 3 mL | | 19 2:20 | | | | | 3 mL, Nebulization, RT Q6H, First | | AM PDT | | | | | dose on 12/04/18 at 2100, For | | | | | | | 2 doses | | | | | | + +-------+ +-------+---+---+ +-------+ +-------+---+---+ | Given | 12/05/19 | 3 mLs | | | | | 19 8:41 | | | | | | PM PDT | | | | +-------+ +-------+---+---+ + +---+ | | | + +---+ | albuterol-ipratropium 2.5-0.5 | | | mg/3 mL nebulizer solution 3 mL | | | 3 mL, Nebulization, RT EVERY 4 | | | HOURS PRN, Shortness of Breath, | | | Starting 12/04/18 at 1955, For | | | 2 doses | | + +---+ | | | + +---+ + +-------+ +-------+---+---+ | atorvaSTATin (LIPITOR) tablet | Given | 12/09/19 | 20 mg | | | | 20 mg 20 mg, Oral, NIGHTLY, | | 19 8:37 | | | | | First dose (after last | | PM PDT | | | | | modification) on 12/04/18 at | | | | | | | 2100 | | | | | | + +-------+ +-------+---+---+ +-------+ +-------+---+---+ | Given | 12/08/19 | 20 mg | | | | | 19 8:39 | | | | | | PM PDT | | | | +-------+ +-------+---+---+ | Given | 12/06/19 | 20 mg | | | | | 19 9:26 | | | | | | PM PDT | | | | +-------+ +-------+---+---+ +---+---+ | | | +---+---+ + +---------+ +-----+-------+---+ | ceFAZolin (ANCEF, KEFZOL) 1 g | New Bag | 12/06/19 | 1 g | 100 | | | in sodium chloride 0.9% 50 mL | | 19 9:00 | | mL/hr | | | IVPB 1 g, Intravenous, | | AM PDT | | | | | Administer over 30 Minutes, EVERY | | | | | | | 8 HOURS (3 times per day), First | | | | | | | dose on 12/05/18 at 0000, For | | | | | | | 2 doses, Activate system and mix | | | | | | | before use., Indications: | | | | | | | Surgical Prophylaxis | | | | | | + +---------+ +-----+-------+---+ +---------+ +-----+-------+---+ | New Bag | 12/05/19 | 1 g | 100 | | | | 19 11:56 | | mL/hr | | | | PM PDT | | | | +---------+ +-----+-------+---+ +---+---+ | | | +---+---+ + +-------+ +--------+---+---+ | cholecalciferol (VITAMIN D-3) | Given | 12/10/19 | 4,000 | | | | tablet 4,000 Units 4,000 Units, | | 19 8:43 | Units | | | | Oral, DAILY, First dose on Fri | | AM PDT | | | | | 12/09/18 at 0900 | | | | | | + +-------+ +--------+---+---+ + +---+ | | | + +---+ | dextrose 50% injection 12.5 g | | | 12.5 g, Intravenous, PRN, Low | | | Blood Sugar, Starting 12/04/18 | | | at 1955 | | + +---+ | | | + +---+ | diphenhydrAMINE (BENADRYL) | | | tablet 25-50 mg 25-50 mg, Oral, | | | EVERY 6 HOURS PRN, Itching, hold | | | for sedation, Starting Mon | | | 12/05/18 at 2132 | | + +---+ | | | + +---+ + +-------+ +--------+---+---+ | docusate sodium (COLACE) | Given | 12/10/19 | 200 mg | | | | capsule 200 mg 200 mg, Oral, | | 19 8:42 | | | | | DAILY, First dose on 12/04/18 | | AM PDT | | | | | at 2014, Swallow capsule whole., | | | | | | + +-------+ +--------+---+---+ +-------+ +--------+---+---+ | Given | 12/09/19 | 200 mg | | | | | 19 8:15 | | | | | | AM PDT | | | | +-------+ +--------+---+---+ | Given | 12/08/19 | 200 mg | | | | | 19 8:40 | | | | | | AM PDT | | | | +-------+ +--------+---+---+ +---+---+ | | | +---+---+ + +-------+ +-------+---+ + | enoxaparin (LOVENOX) 30 mg/0.3 | Given | 12/10/19 | 30 mg | | Abdomen- | | mL injection 30 mg 30 mg, | | 19 8:43 | | | LLQ | | Subcutaneous, EVERY 24 HOURS | | AM PDT | | | | | (Daily), First dose on Mon | | | | | | | 12/05/18 at 0900 | | | | | | + +-------+ +-------+---+ + +-------+ +-------+---+ + | Given | 12/09/19 | 30 mg | | Abdomen- | | | 19 8:15 | | | RUQ | | | AM PDT | | | | +-------+ +-------+---+ + | Given | 12/08/19 | 30 mg | | Abdomen- | | | 19 8:40 | | | LLQ | | | AM PDT | | | | +-------+ +-------+---+ + +---+---+ | | | +---+---+ + +-------+ +--------+---+ + | epoetin karthik (EPOGEN, PROCRIT) | Given | 12/08/19 | 8,000 | | Abdomen- | | 20,000 units/mL injection 8,000 | | 19 8:54 | Units | | LLQ | | Units 8,000 Units, Subcutaneous, | | AM PDT | | | | | THREE TIMES WEEKLY (Once per day | | | | | | | on Wed), First dose | | | | | | | (after last reorder) on Wed | | | | | | | 12/07/18 at 0900, Keep in | | | | | | | refrigerator. Do not shake., | | | | | | | ESRD-related (i.e. dialysis) | | | | | | | indication? Yes | | | | | | + +-------+ +--------+---+ + +---+---+ | | | +---+---+ + +-------+ +--------+---+---+ | fentaNYL (PF) injection 25-50 | Given | 12/05/19 | 25 mcg | | | | mcg 25-50 mcg, Intravenous, | | 19 6:05 | | | | | EVERY 5 MIN PRN, Pain, Starting | | PM PDT | | | | | 12/04/18 at 1739, Maximum | | | | | | | total dose 200 mcg. PACU IV | | | | | | | Narcotic Priority: Only use | | | | | | | fentanyl for immediate post-op | | | | | | | pain (one dose) or breakthrough | | | | | | | pain when any other IV narcotics | | | | | | | ordered have been ineffective (if | | | | | | | ordered). If both morphine and | | | | | | | hydromorphone are ordered, use | | | | | | | morphine first, and use | | | | | | | hydromorphone if morphine | | | | | | | ineffective., Recovery/Phase I | | | | | | + +-------+ +--------+---+---+ +-------+ +--------+---+---+ | Given | 12/05/19 | 25 mcg | | | | | 19 5:53 | | | | | | PM PDT | | | | +-------+ +--------+---+---+ +---+---+ | | | +---+---+ + +-------+ +--------+---+---+ | fentaNYL (PF) injection 50 mcg | Given | 12/05/19 | 50 mcg | | | | 50 mcg, Intravenous, ONCE, Sun | | 19 1:59 | | | | | 12/04/18 at 1355, For 1 dose | | PM PDT | | | | + +-------+ +--------+---+---+ +---+---+ | | | +---+---+ + +---------+ +--------+ +---+ | ferric gluconate (FERRLECIT) | New Bag | 12/09/19 | 250 mg | 90 mL/hr | | | 250 mg in sodium chloride 0.9% | | 19 9:30 | | | | | 250 mL IVPB 250 mg, Intravenous, | | PM PDT | | | | | Administer over 3 Hours, DAILY, | | | | | | | First dose on Wed12/06/18 at | | | | | | | 2100, For 3 days | | | | | | + +---------+ +--------+ +---+ +---------+ +--------+ +---+ | New Bag | 12/08/19 | 250 mg | 90 mL/hr | | | | 19 9:42 | | | | | | PM PDT | | | | +---------+ +--------+ +---+ | New Bag | 12/07/19 | 250 mg | 90 mL/hr | | | | 19 9:24 | | | | | | PM PDT | | | | +---------+ +--------+ +---+ +---+---+ | | | +---+---+ + +-------+ +-------+---+---+ | furosemide (LASIX) injection 40 | Given | 12/05/19 | 40 mg | | | | mg 40 mg, Intravenous, ONCE, | | 19 3:24 | | | | | 12/04/18 at 1510, For 1 dose | | PM PDT | | | | + +-------+ +-------+---+---+ +---+---+ | | | +---+---+ + +-------+ +-------+---+---+ | furosemide (LASIX) injection 80 | Given | 12/05/19 | 80 mg | | | | mg 80 mg, Intravenous, ONCE, | | 19 8:26 | | | | | 12/04/18 at 2030, For 1 dose | | PM PDT | | | | + +-------+ +-------+---+---+ +---+---+ | | | +---+---+ + +-------+ +--------+---+---+ | guaiFENesin (MUCINEX) ER tablet | Given | 12/10/19 | 600 mg | | | | 600 mg 600 mg, Oral, 2 TIMES | | 19 8:43 | | | | | DAILY, First dose on 12/04/18 | | AM PDT | | | | | at 2100, Do not cut or crush. | | | | | | | Take with a full glass of water., | | | | | | | | | | | | | + +-------+ +--------+---+---+ +-------+ +--------+---+---+ | Given | 12/09/19 | 600 mg | | | | | 19 8:37 | | | | | | PM PDT | | | | +-------+ +--------+---+---+ | Given | 12/09/19 | 600 mg | | | | | 19 8:16 | | | | | | AM PDT | | | | +-------+ +--------+---+---+ +---+---+ | | | +---+---+ + +-------+ +-------+---+---+ | heparin 1,000 units/mL | Given | 12/06/19 | 500 | | | | injection 500 Units 500 Units, | | 19 10:32 | Units | | | | Intravenous, ONCE, 12/05/18 at | | AM PDT | | | | | 0930, For 1 dose, While on | | | | | | | NxStage Tx., | | | | | | + +-------+ +-------+---+---+ +---+---+ | | | +---+---+ + +-------+ +-------+---+---+ | heparin 1,000 units/mL | Given | 12/08/19 | 800 | | | | injection 800 Units 800 Units, | | 19 8:36 | Units | | | | Intravenous, ONCE, 12/07/18 at | | AM PDT | | | | | 0715, For 1 dose, While on | | | | | | | NxStage Tx., Dialysis | | | | | | + +-------+ +-------+---+---+ +---+---+ | | | +---+---+ + +-------+ +-------+---+---+ | heparin 1,000 units/mL | Given | 12/10/19 | 800 | | | | injection 800 Units 800 Units, | | 19 11:17 | Units | | | | Intravenous, ONCE, 12/09/18 at | | AM PDT | | | | | 0945, For 1 dose, While on | | | | | | | NxStage Tx., Dialysis | | | | | | + +-------+ +-------+---+---+ +---+---+ | | | +---+---+ + +---------+ + +---------+---+ | heparin in half-normal saline | New Bag | 12/06/19 | 300 | 6 mL/hr | | | 50 units/mL infusion 300 | | 19 10:32 | Units/hr | | | | Units/hr (6 mL/hr), at 6 mL/hr, | | AM PDT | | | | | Intravenous, DIALYSIS - | | | | | | | CONTINUOUS, Starting 12/05/18 | | | | | | | at 0930, For 1 day, While on | | | | | | | NxStage Tx., | | | | | | + +---------+ + +---------+---+ +---+---+ | | | +---+---+ + +---------+ + +---------+---+ | heparin in half-normal saline | New Bag | 12/08/19 | 300 | 6 mL/hr | | | 50 units/mL infusion 300 | | 19 8:35 | Units/hr | | | | Units/hr (6 mL/hr), at 6 mL/hr, | | AM PDT | | | | | Intravenous, DIALYSIS - | | | | | | | CONTINUOUS, Starting Wed12/07/18 | | | | | | | at 0715, For 1 day, While on | | | | | | | NxStage Tx., Dialysis | | | | | | + +---------+ + +---------+---+ +---+---+ | | | +---+---+ + +---------+ + +---------+---+ | heparin in half-normal saline | New Bag | 12/10/19 | 300 | 6 mL/hr | | | 50 units/mL infusion 300 | | 19 11:12 | Units/hr | | | | Units/hr (6 mL/hr), at 6 mL/hr, | | AM PDT | | | | | Intravenous, DIALYSIS - | | | | | | | CONTINUOUS, Starting Wed12/09/18 | | | | | | | at 0945, For 1 day, While on | | | | | | | NxStage Tx., Dialysis | | | | | | + +---------+ + +---------+---+ +---+---+ | | | +---+---+ + +-------+ +-------+---+---+ | hydrALAZINE (APRESOLINE) | Given | 12/10/19 | 20 mg | | | | injection 10-20 mg 10-20 mg, | | 19 3:05 | | | | | Intravenous, EVERY 6 HOURS PRN, | | PM PDT | | | | | for sbp>180 or dbp>100, Starting | | | | | | | 12/05/18 at 0324 | | | | | | + +-------+ +-------+---+---+ +-------+ +-------+---+---+ | Given | 12/09/19 | 20 mg | | | | | 19 10:44 | | | | | | PM PDT | | | | +-------+ +-------+---+---+ | Given | 12/06/19 | 20 mg | | | | | 19 3:32 | | | | | | AM PDT | | | | +-------+ +-------+---+---+ +---+---+ | | | +---+---+ + +-------+ +------+---+---+ | HYDROmorphone (DILAUDID) 1 | Given | 12/10/19 | 1 mg | | | | mg/mL injection 0.5-1 mg 0.5-1 | | 19 5:58 | | | | | mg, Intravenous, EVERY 2 HOURS | | AM PDT | | | | | PRN, Pain, Starting 12/04/18 | | | | | | | at 2010, Hold for somnolence, | | | | | | + +-------+ +------+---+---+ +-------+ +------+---+---+ | Given | 12/09/19 | 1 mg | | | | | 19 10:38 | | | | | | AM PDT | | | | +-------+ +------+---+---+ | Given | 12/08/19 | 1 mg | | | | | 19 3:44 | | | | | | PM PDT | | | | +-------+ +------+---+---+ +---+---+ | | | +---+---+ + +-------+ +---------+---+---+ | HYDROmorphone (DILAUDID) | Given | 12/05/19 | 0.25 mg | | | | injection 0.2-0.5 mg 0.2-0.5 mg, | | 19 6:46 | | | | | Intravenous, EVERY 5 MIN PRN, | | PM PDT | | | | | Pain, Starting 12/04/18 at | | | | | | | 1739, Maximum total dose 2 mg. | | | | | | | PACU IV Narcotic Priority: Only | | | | | | | use fentanyl for immediate | | | | | | | post-op pain (one dose) or | | | | | | | breakthrough pain when any other | | | | | | | IV narcotics ordered have been | | | | | | | ineffective (if ordered). If | | | | | | | both morphine and hydromorphone | | | | | | | are ordered, use morphine first, | | | | | | | and use hydromorphone if morphine | | | | | | | ineffective., Recovery/Phase I | | | | | | + +-------+ +---------+---+---+ +-------+ +---------+---+---+ | Given | 12/05/19 | 0.25 mg | | | | | 19 6:20 | | | | | | PM PDT | | | | +-------+ +---------+---+---+ +---+---+ | | | +---+---+ + +-------+ +--------+---+---+ | HYDROmorphone (DILAUDID) | Given | 12/05/19 | 0.5 mg | | | | injection 0.5 mg 0.5 mg, | | 19 2:43 | | | | | Intravenous, ONCE, [place] 12/04/18 at | | PM PDT | | | | | 1440, For 1 dose | | | | | | + +-------+ +--------+---+---+ +---+---+ | | | +---+---+ + +-------+ +------+---+---+ | HYDROmorphone (DILAUDID) | Given | 12/05/19 | 1 mg | | | | injection 1 mg 1 mg, | | 19 3:16 | | | | | Intravenous, ONCE, [place] 12/04/18 at | | PM PDT | | | | | 1515, For 1 dose | | | | | | + +-------+ +------+---+---+ +---+---+ | | | +---+---+ + +-------+ +---------+---+ + | insulin lispro (humaLOG | Given | 12/07/19 | 2 Units | | Arm-Righ | | KWIKPEN) injection (pen) 0-12 | | 19 5:20 | | | t Upper | | Units 0-12 Units, Subcutaneous, | | PM PDT | | | | | 3 TIMES DAILY BEFORE MEALS, First | | | | | | | dose (after last modification) | | | | | | | on 12/05/18 at 1130, | | | | | | | CORRECTION SCALE: Blood Glucose | | | | | | | (BG) < 150: None | | | | | | | BG 150-200: DAY: 2 units. | | | | | | | NIGHT: 0 units BG 201-250: DAY: | | | | | | | 4 units. NIGHT: 2 units BG | | | | | | | 251-300: DAY: 6 units. NIGHT: | | | | | | | 4 units BG 301-350: DAY: 8 | | | | | | | units. NIGHT: 6 units BG | | | | | | | 351-400: DAY: 10 units. NIGHT: 8 | | | | | | | units BG > 400 : DAY: 12 | | | | | | | units. NIGHT: 10 units | | | | | | | AND CALL PROVIDER | | | | | | | , Use DAY DOSE for doses | | | | | | | scheduled: AC, NPO, Daytime | | | | | | | [id number] Use NIGHT DOSE for | | | | | | | doses scheduled: HS, 3AM, | | | | | | | Nighttime 6946-2807, | | | | | | + +-------+ +---------+---+ + + +---+ | | | + +---+ | insulin lispro (humaLOG | | | KWIKPEN) injection (pen) 0-12 | | | Units 0-12 Units, Subcutaneous, | | | 2 TIMES DAILY BEFORE MEALS, First | | | dose (after last modification) | | | on Wed12/07/18 at 0730, | | | CORRECTION SCALE: Blood Glucose | | | (BG) < 150: None | | | BG 150-200: DAY: 2 units. | | | NIGHT: 0 units BG 201-250: DAY: | | | 4 units. NIGHT: 2 units BG | | | 251-300: DAY: 6 units. NIGHT: | | | 4 units BG 301-350: DAY: 8 | | | units. NIGHT: 6 units BG | | | 351-400: DAY: 10 units. NIGHT: 8 | | | units BG > 400 : DAY: 12 | | | units. NIGHT: 10 units | | | AND CALL PROVIDER | | | , Use DAY DOSE for doses | | | scheduled: AC, NPO, Daytime | | | 5588-5235 Use NIGHT DOSE for | | | doses scheduled: HS, 3AM, | | | Nighttime [id number], | | + +---+ | | | + +---+ + +-------+ +--------+---+---+ | labetalol (NORMODYNE) tablet | Given | 03/29/20 | 200 mg | | | | 200 mg 200 mg, Oral, 2 TIMES | | 19 8:42 | | | | | DAILY, First dose (after last | | AM PDT | | | | | modification) on 12/04/18 at | | | | | | | 2100, Hold for sbp < 140 Hold for | | | | | | | HR <60, | | | | | | + +-------+ +--------+---+---+ +-------+ +--------+---+---+ | Given | 12/09/19 | 200 mg | | | | | 19 8:37 | | | | | | PM PDT | | | | +-------+ +--------+---+---+ | Given | 12/09/19 | 200 mg | | | | | 19 8:16 | | | | | | AM PDT | | | | +-------+ +--------+---+---+ +---+---+ | | | +---+---+ + +-------+ +------+---+---+ | labetalol (TRANDATE) 5 mg/mL | Given | 12/05/19 | 5 mg | | | | injection 5 mg 5 mg, | | 19 7:02 | | | | | Intravenous, EVERY 5 MIN PRN, For | | PM PDT | | | | | SBP > 180, DBP > 100, Starting | | | | | | | 12/04/18 at 1739, Hold if HR < | | | | | | | 60. Maximum total dose 300mg. | | | | | | | Notify anesthesia if patient | | | | | | | requires more than 50mg., | | | | | | | Recovery/Phase I | | | | | | + +-------+ +------+---+---+ +-------+ +------+---+---+ | Given | 12/05/19 | 5 mg | | | | | 19 6:53 | | | | | | PM PDT | | | | +-------+ +------+---+---+ | Given | 12/05/19 | 5 mg | | | | | 19 6:40 | | | | | | PM PDT | | | | +-------+ +------+---+---+ +---+---+ | | | +---+---+ + +-------+ +--------+---+---+ | levothyroxine (SYNTHROID) | Given | 12/10/19 | 75 mcg | | | | tablet 75 mcg 75 mcg, Oral, | | 19 6:15 | | | | | DAILY BEFORE BREAKFAST, First | | AM PDT | | | | | dose (after last modification) on | | | | | | | 12/05/18 at 0730, Give before | | | | | | | breakfast., | | | | | | + +-------+ +--------+---+---+ +-------+ +--------+---+---+ | Given | 12/09/19 | 75 mcg | | | | | 19 6:50 | | | | | | AM PDT | | | | +-------+ +--------+---+---+ | Given | 12/08/19 | 75 mcg | | | | | 19 6:16 | | | | | | AM PDT | | | | +-------+ +--------+---+---+ +---+---+ | | | +---+---+ + +-------+ +-------+---+---+ | lidocaine (PF) 1% injection 5 | Given | 12/06/19 | 5 mLs | | | | mL 5 mL, Infiltration, ONCE, Mon | | 19 10:49 | | | | | 12/05/18 at 0930, For 1 dose, | | AM PDT | | | | | While on NxStage Tx., | | | | | | + +-------+ +-------+---+---+ +---+---+ | | | +---+---+ + +-------+ +-------+---+---+ | lidocaine (PF) 1% injection 5 | Given | 12/08/19 | 5 mLs | | | | mL 5 mL, Infiltration, ONCE, Wed | | 19 9:05 | | | | | 12/07/18 at 0715, For 1 dose, | | AM PDT | | | | | While on NxStage Tx., Dialysis | | | | | | + +-------+ +-------+---+---+ +---+---+ | | | +---+---+ + +-------+ +------+---+---+ | lidocaine (PF) 1% injection 5 | Given | 12/10/19 | 1 mL | | | | mL 5 mL, Infiltration, ONCE, Fri | | 19 11:21 | | | | | 12/09/18 at 0945, For 1 dose, | | AM PDT | | | | | While on NxStage Tx., Dialysis | | | | | | + +-------+ +------+---+---+ +---+---+ | | | +---+---+ + +-------+ +--------+---+---+ | losartan (COZAAR) tablet 100 mg | Given | 12/10/19 | 100 mg | | | | 100 mg, Oral, DAILY, First dose | | 19 8:43 | | | | | (after last modification) on Wed | | AM PDT | | | | | 12/07/18 at 0900, Hold for sbp < | | | | | | | 140, | | | | | | + +-------+ +--------+---+---+ +-------+ +--------+---+---+ | Given | 12/09/19 | 100 mg | | | | | 19 8:16 | | | | | | AM PDT | | | | +-------+ +--------+---+---+ | Given | 12/08/19 | 100 mg | | | | | 19 8:40 | | | | | | AM PDT | | | | +-------+ +--------+---+---+ +---+---+ | | | +---+---+ + +-------+ +-------+---+---+ | losartan (COZAAR) tablet 50 mg | Given | 12/07/19 | 50 mg | | | | 50 mg, Oral, 2 TIMES DAILY, | | 19 8:53 | | | | | First dose on 12/04/18 at | | AM PDT | | | | | 2100, Hold for sbp < 140, | | | | | | + +-------+ +-------+---+---+ +-------+ +-------+---+---+ | Given | 12/06/19 | 50 mg | | | | | 19 9:26 | | | | | | PM PDT | | | | +-------+ +-------+---+---+ | Given | 12/06/19 | 50 mg | | | | | 19 8:02 | | | | | | AM PDT | | | | +-------+ +-------+---+---+ + +---+ | | | + +---+ | mannitol 20% IVPB 12.5 g 12.5 | | | g, Intravenous, Administer over | | | 30 Minutes, PRN, PRN hypotension, | | | Starting 12/05/18 at 0913, | | | For BP < 90 mmHg on NxStage. Do | | | not refrigerate. Watch for | | | precipitation. Use 0.22, 1.2, or | | | 5 micron in-line filter for | | | administration., | | + +---+ | | | + +---+ + +-------+ +------+---+---+ | metoprolol tartrate (LOPRESSOR) | Given | 12/06/19 | 5 mg | | | | injection 5 mg 5 mg, | | 19 2:00 | | | | | Intravenous, EVERY 6 HOURS PRN, | | AM PDT | | | | | sbp > 160 despite lasix. hold for | | | | | | | HR < 60, Starting 12/04/18 at | | | | | | | 1521 | | | | | | + +-------+ +------+---+---+ +-------+ +------+---+---+ | Given | 12/05/19 | 5 mg | | | | | 19 3:44 | | | | | | PM PDT | | | | +-------+ +------+---+---+ + +---+ | | | + +---+ | naloxone (NARCAN) 0.4 mg/mL | | | injection 0.4 mg 0.4 mg, | | | Intravenous, PRN, Decreased | | | Responsiveness, Starting Sun | | | 12/04/18 at 2011 | | + +---+ | | | + +---+ | olopatadine (PATANOL) 0.1% | | | ophthalmic solution 1 drop 1 | | | drop, Both Eyes, 2 TIMES DAILY, | | | First dose (after last | | | modification) on 12/04/18 at | | | 2100 | | + +---+ | | | + +---+ + +-------+ +------+---+---+ | ondansetron (ZOFRAN) injection | Given | 12/07/19 | 4 mg | | | | 4 mg 4 mg, Intravenous, EVERY 6 | | 19 6:55 | | | | | HOURS PRN, Nausea, Vomiting, | | PM PDT | | | | | Starting 12/06/18 at 1133 | | | | | | + +-------+ +------+---+---+ +-------+ +------+---+---+ | Given | 12/07/19 | 4 mg | | | | | 19 11:45 | | | | | | AM PDT | | | | +-------+ +------+---+---+ +---+---+ | | | +---+---+ + +-------+ +------+---+---+ | oxyCODONE (ROXICODONE) tablet | Given | 12/10/19 | 5 mg | | | | 5-10 mg 5-10 mg, Oral, EVERY 4 | | 19 6:02 | | | | | HOURS PRN, Pain, Starting Tue | | PM PDT | | | | | 12/06/18 at 0800 | | | | | | + +-------+ +------+---+---+ +-------+ +-------+---+---+ | Given | 12/10/19 | 10 mg | | | | | 19 1:04 | | | | | | PM PDT | | | | +-------+ +-------+---+---+ | Given | 03/29/20 | 10 mg | | | | | 19 3:54 | | | | | | AM PDT | | | | +-------+ +-------+---+---+ +---+---+ | | | +---+---+ + +-------+ +-------+---+---+ | pantoprazole (PROTONIX) DR | Given | 12/10/19 | 40 mg | | | | tablet 40 mg 40 mg, Oral, DAILY | | 19 6:15 | | | | | BEFORE BREAKFAST, First dose | | AM PDT | | | | | (after last modification) on Mon | | | | | | | 12/05/18 at 0730, Do not cut or | | | | | | | crush., 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 | | | | | | + +-------+ +-------+---+---+ +-------+ +-------+---+---+ | Given | 12/09/19 | 40 mg | | | | | 19 6:50 | | | | | | AM PDT | | | | +-------+ +-------+---+---+ | Given | 12/08/19 | 40 mg | | | | | 19 6:16 | | | | | | AM PDT | | | | +-------+ +-------+---+---+ +---+---+ | | | +---+---+ + +-------+ + +---+---+ | renal multivitamin (DIALYVITE, | Given | 12/10/19 | 1 tablet | | | | VOL-CARE) tablet 1 tablet 1 | | 19 8:42 | | | | | tablet, Oral, DAILY, First dose | | AM PDT | | | | | on 12/05/18 at 1015 | | | | | | + +-------+ + +---+---+ +-------+ + +---+---+ | Given | 12/09/19 | 1 tablet | | | | | 19 8:16 | | | | | | AM PDT | | | | +-------+ + +---+---+ | Given | 12/08/19 | 1 tablet | | | | | 19 8:44 | | | | | | AM PDT | | | | +-------+ + +---+---+ + +---+ | | | + +---+ | sodium chloride 0.9% (NS) | | | infusion 250 mL at 100 mL/hr, | | | Intravenous, EVERY 30 MIN PRN, | | | PRN hypotension., Starting Mon | | | 12/05/18 at 0913, For BP < 90 mmHg | | | on NxStage., | | + +---+ | | | + +---+ + +---------+ +--------+ +---+ | sodium chloride 0.9% (NS) | New Bag | 12/05/19 | 1,000 | 10 mL/hr | | | infusion at 10 mL/hr, | | 19 6:32 | mLs | | | | Intravenous, CONTINUOUS, Starting | | PM PDT | | | | | 12/04/18 at 1845, | | | | | | | Recovery/Phase I | | | | | | + +---------+ +--------+ +---+ +---+---+ | | | +---+---+ documented in this encounter
--- OUTSIDE RECORDS SUMMARY | ~2020-03-21 | XMS | Encounter Summary ---
Demographics + + + | Address | [address] | | | [place] [address] | + + + | Home Phone | | + + + | Preferred Language | Unknown | + + + | Marital Status | Single | + + + | Anabaptism Affiliation | Unknown | + + + | Race | Unknown | + + + | Ethnic Group | Unknown | + + + Author + + + | Author | [facility] | | | and [place] | + + + | Organization | [facility] | | | and [place] | + + + | Address | Unknown | + + + | Phone | Unavailable | + + + Support + + + + + | Name | Relationship | Address | Phone | + + + + + | India Tilley | ECON | [id number] | | | | | [place], [place] | | | | | [address] | | + + + + + | Yina La | ECON | Unknown | | + + + + + | Yian Peterson | ECON | Unknown | | + + + + + | Leatha Casillas | ECON | Unknown | | + + + + + | Azael Ocasio | ECON | Unknown | | + + + + + | Lias Ferd | ECON | Unknown | | + + + + + Care Team Providers + +------+ + | Care Bacteriology Teacher Name | Role | Phone | + +------+ + PCP | Unavailable | + +------+ + Encounter Details +--------+ + + + + | Date | Type | Department | Care Team | Description | +--------+ + + + + | 11/07/ | Hospital | [facility] | Peyman Wu, | [facility] | | 2002 | Encounter | [facility] | [address] | NOS | | | | CLINICAL DECISION | [address] | | | | | [address] | [address] | | | | | [place], [place] | | | | | | [address] | | | | | | [phone] | | | +--------+ + + + [...] | Diagnosis | + + | Chronic ischemic heart disease, unspecified | + + documented in this encounter"
--- OUTSIDE RECORDS SUMMARY | ~2020-03-21 | XMS | Encounter Summary ---
Demographics + + + | Address | [address] | | | [place] [address] | + + + | Home Phone | | + + + | Preferred Language | Unknown | + + + | Marital Status | Single | + + + | Buddhist Affiliation | Unknown | + + + | Race | Unknown | + + + | Ethnic Group | Unknown | + + + Author + + + | Author | [facility] | | | and [place] | + + + | Organization | [facility] | | | and [place] | + + + | Address | Unknown | + + + | Phone | Unavailable | + + + Support + + + + + | Name | Relationship | Address | Phone | + + + + + | India Tilley | ECON | [phone] | | | | | [place], [place] | | | | | [address] | | + + + + + [...] Providers + +------+ + | Care Railroad Operating Engineer Name | Role | Phone | + +------+ + PCP | Unavailable | + +------+ + Encounter Details +--------+ + + + + | Date | Type | Department | Care Team | Description | +--------+ + + + + | 02/13/ | [facility] | [facility] | Patricia, | | | 2007 - | Encounter | [facility] | Venkatesh Forte MD [address] | | | | CENTER [address] | [place] | | | 03/12/ | | [place] | [place] [address] | | | 2007 | | [address] | [phone] | | | | | [phone] | | | +--------+ + + + [...]
--- OUTSIDE RECORDS SUMMARY | ~2020-03-21 | XMS | Encounter Summary ---
Demographics + + + | Address | [address] | | | [place] [address] | + + + | Home Phone [...] + | Author | [facility] | | | and Kamaljitana | + + + | Organization | [facility] | | | and [place] | + + + | Address | Unknown | + + + | Phone | Unavailable | + + + Support + + + + + | Name | Relationship | Address | Phone | + + + + + | India Tilley | ECON | [id number] | | | | | [place], [place] | | | | | [address] | | + + + + + [...] Team Providers + +------+ + | Care Child Life Assistant Name | Role | Phone | + [...] | | | | | | | Hypothermia | | | | | | | | | | | | | | Hypoglycemia | | | | | | | needs AV | | | | | | | shunt | | | +--------+--------+ + + + + Encounter Details +--------+---------+ + + + | Date | Type | Department | Care Team | Description | +--------+---------+ + + + | 11/08/ | Surgery | [facility] | Nora Leo MD | Tunneled | | 2018 | | MED CTR OR INTRA OP | [address] | Hemodialysis | | | | [address] | [place] [address] | Catheter Placement | | | | [place], [place] | [phone] | | | | | [address] | | | | | | [phone] | | | +--------+---------+ + + + [...] + + + | Blood Pressure | 160/70 | 11/08/2017 7:34 AM | | | | | PST | | + + + + + | Pulse | 72 | 11/08/2017 7:34 AM | | | | | PST | | + + + + + | Temperature | 37 C (98.6 F) | 11/08/2017 7:34 AM | | | | | PST | | + + + + + | Respiratory Rate | 16 | 11/08/2017 7:34 AM | | | | | PST | | + + + + + | Oxygen Saturation | 93% | 11/08/2017 7:34 AM | | | | | PST | | + + + + + | Inhaled Oxygen | - | - | | | Concentration | | | | + + + + + | Weight | 90.6 kg (199 lb 11.8 | 11/04/2017 4:25 AM | | | | oz) | PST | | + + + + + | Height | 172.7 cm (5' 8") | 11/01/2017 9:47 PM | | | | | PST | | + + + + + | Body Mass Index | 30.37 | 11/01/2017 9:47 PM | | | | | PST | | + + + + + documented in this encounter Discharge Summaries Mayelin Engle MD - 11/09/2017 11:06 AM PSTFormatting of this note might be differ ent from the original. [place] HOSPITALIST DISCHARGE SUMMARY Pt. Name/Age/: Ara Tilley 72 y.o. 1945 Date of Admission: 11/01/2017 Date of Discharge: 11/09/2017 Admitting Physician: Gopi Muñoz DO Primary Care Provider: Francisca Womack PA-C Discharging Physician: Mayelin Vega MD DISCHARGE DIAGNOSES: Active Hospital Problems Diagnosis Elevated hemoglobin A1c Decreased glomerular filtration rate (GFR) Diabetes - INSULIN Control Hypertension Resolved Hospital Problems Diagnosis No resolved problems to display. 1. Sepsis 2/2 to likely UTI +/- CAP 2. 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 aka: COLACE epoetin karthik 10,000 units/mL injection Inject 1 mL under the skin Three times a week. aka: EPOGENROCIORIT Start: 11/10/2017 HYDROcodone-acetaminophen 5-325 mg per tablet Take 1 tablet by mouth every 8 hours as needed for Pain. For surgical pain, wean off medic ation aka: NORCO levoFLOXacin 750 MG tablet Take 1 tablet by mouth Every other day for 10 days. Indications: [facility] Pne umonia, UTI - Lower aka: LEVAQUIN Start: 11/10/2017 senna 8.6 mg tablet Take 1 tablet by mouth Twice daily as needed for Constipation. aka: SENOKOT sertraline 100 mg tablet Take 1 tablet by mouth Daily. aka: ZOLOFT Start: 11/10/2017 Changed Medications Details gabapentin 100 mg capsule Take 200 mg by mouth 2 times daily. Morning and evening What changed: Another medication with the same name was removed. Continue taking this medi cation, and follow the directions you see here. aka: NEURONTIN Unchanged Medications Details Alcohol Swabs 70 % Pads by Does not apply route. Use 1 to wipe area as directed. amLODIPine 10 MG tablet Take 1 tablet by mouth Daily. aka: NORVASC artificial tears ophthalmic ointment Place into both eyes every hour as needed for Dry Eyes. atorvaSTATin 20 mg tablet Take 20 mg by mouth nightly. aka: LIPITOR CALCIUM 600-D 600 mg-400 units per tablet Generic drug: calcium-vitamin D Take 1 tablet by mouth 2 times daily. Chlorhexidine Gluconate 4 % Soln Apply topically. Use one capful mixed in 1 pint of water and scrub wound daily or as dire cted. furosemide 80 mg tablet Take 1 tablet by mouth Daily. aka: LASIX hydrophilic ointment Apply topically as needed for Dry Skin. Apply a small amount to affected area. labetalol 200 mg tablet Take 1 tablet by mouth 2 times daily. aka: NORMODYNE Lancets Misc by Does not apply route. Use 1 lancet for blood testing as directed. levothyroxine 75 MCG tablet Take 75 mcg by mouth every morning (before breakfast). aka: SYNTHROID loratadine 10 mg tablet Take 1 tablet by mouth Daily as needed for Allergies. aka: CLARITIN losartan 25 mg tablet Take 1 tablet by mouth Daily. aka: COZAAR OASIS MOISTURIZING MOUTHWASH MT Take 1 oz by mouth 2 times daily. olopatadine 0.1% ophthalmic solution Place 1-2 drops into both eyes 2 times daily. aka: PATANOL pantoprazole 40 mg tablet Take 40 mg by mouth every morning (before breakfast). aka: PROTONIX TRUE METRIX BLOOD GLUCOSE TEST by In Vitro route. UNABLE TO FIND Med Name: Cadoexomer Iodine 0.9 % gel. Apply a small amount to affected area as directed during dressing changes. Discontinued Medications DULoxetine [address] capsule aka: CYMBALTA insulin glargine 100 units/mL injection (vial) aka: [facility] COURSE: Please refer to the H&P for full details and the most recent rounding rounding (progress) n ote. In short this is a 72-year-old woman, history of hypertension, diabetes mellitus type 2 on insulin, chronic kidney disease of stage V, CAD, who presented to [facility] after be ing found down in her home and unresponsive. Initially she was found to be hypoglycemic wit h a blood sugar in the 30s, given an amp of D50, with improvement in her symptoms but she re mained confused. She was also noted to be hypothermic at 88 Fahrenheit, place on bear hugge r and D10 and she was transferred for further evaluation. At time of arrival to send nares, patient was feeling much better and was awake alert and oriented. She mentioned that she w as not eating well prior to presentation, as her diet had recently been adjusted to avoid to o much potassium and phosphorus, additionally, should run out of food stamps recently and co uld not afford food, making sure intake is sporadic. She has been following with nephrology as an outpatient, and due to her worsening renal function initiation of dialysis was discus sed. She was admitted for further evaluation of hypoglycemia and hypothermia, glucose was closel y monitored, cultures were drawn. Initially on ceftriaxone and azithromycin for broad covera ge- OSH CXR negative, repeated study with some scarring. Initial evaluation showed a positiv e urinalysis, urine culture returned positive for E. coli. Blood cultures eventually came p ositive for strep bovis, after which patient was switched to Levaquin. During evaluation katharina had a CT of the abdomen and pelvis, which showed extensive groundglass opacities within po sterior left lower lobe concerning for pneumonia, and evaluation of the CT of the thorax prashant wed multifocal pneumonia. She is to complete 14 day treatment since clearance of blood cultu res. Dr. Muñoz discussed this risk and benefits and alternatives to hemodialysis, patient agr eed to have the temporary IJ Jericho for initiation of dialysis, done 11/03. She underwent HD daily, and on 11/06 Jericho was removed. Repeat cultures were redrawn and negative. Permaca th was placed on 11/08, given HD again on 11/09. Schedules as outpatient to start HD on 11/10. In regards to her diabetes, due to her worsening renal function risk for hypoglycemia incre ases, as such, insulin was discontinued. Advised to continue checking blood glucose and disc uss with primary physician, oral medications could be considered. In regards to her HTN, she remains elevated, her medication had been adjusted, and she is t o resume amlodipine, losartan and labetalol. Further adjustments per nephro. Her mood was noted to be very labile, she is tearful and apprehensive about undergoing HD. Palliative care was consulted for support. She is noted to have poor memory of plan of care in spite of repetition of such, which may be due to her depressed state. Her Cymbalta was di scontinue and Sertraline was started, she was given prescription for 100 mg and advised to i ncrease to 150 mg in 2 weeks if tolerating. She was evaluated by PT/OT, recommended SNF, but patient adamantly refused. Home health was contacted. Due to recent surgery, she was given small supply of narcotics, advised to wean off within next 2-5 days, daily decreasing dose. CM to contact family to ensure as safe disc harge home as possible. Most recent weight: Input and output for last 24hrs: Wt Readings from Last 1 Encounters: 11/04/17 90.6 kg (199 lb 11.8 oz) I/O last 24 Hours: In: 800 [P.O.:500; I.V.:300] Out: 1450 [Urine:1450] Vitals Ranges: Temp: [36.2 C (97.2 F)-36.8 C (98.2 F)] 36.8 C (98.2 F) Pulse: [66-85] 66 Resp: [11-26] 16 BP: (161-199)/(61-88) 183/76 Vitals: Temp: 36.8 C (98.2 F) BP: 183/76 Pulse: 66 Resp: 16 SpO2: 99 % SpO2 99 % on room air at flow rate 0.5 (placed on room air)L/min PHYSICAL EXAM: Patient seen and examined by me on discharge day Constitutional: Obese woman in no acute distress, she is undergoing HD, appears comfortable HEENT: No conjunctivitis nor scleral icterus. Clear oropharynx. No adenopathy Cardiac: Normal S1 S2, regular, + murmur; permacath RUCW Lung: decreased breath sounds in all gaytan, with no wheezing appreciated Abdomen: + BS, Soft, NT, no HSM nor masses Psych: depressed, anxious, intermittently tearful. AAO x 3 Extremities: no edema in bilateral lower extremities Neuro: Nonfocal, strength intact PROCEDURES AND CONSULTS: Procedures- Jericho; permacath, HD Consults Nephrology, Surgery PENDING RESULTS: n/a DISPOSITION AND DISCHARGE INSTRUCTIONS: [facility]. Why: 1:00pm Contact information: [address] [place] [address] Follow up In 3 days. Francisca Womack PA-C In 3 days. Specialty: Internal Medicine Contact information: [address] [place] [address] Hemodialysis In 1 day. Contact information: Appointment at 1:30 PM Condition: Patient being discharged with condition improved and stable Diet: renal, carbohydrate controlled Greater than 30 minutes were spent on discharge and coordination of post-hospital care. Electronically signed by: Mayelin Vega MD, 11/09/2017 11:06 [facility] Portions of this chart may have been created with [employer]Touch voice recognition software. Occasi onal wrong-word or sound-alike substitutions may have occurred due to the inherent mckeon itations of voice recognition software. Please read the chart carefully and recognize, using context, where these substitutions have occurred documented in this encounter Discharge Instructions AttachmentsThe following attachments cannot be sent through Care Everywhere.Balancing Calci um and Phosphorus, Kidney Disease (Tristanian)Hemodialysis (Tristanian)documented in this encounte r Medications at Time of Discharge + + [...] | | | | PADS | route. Use 1 to wipe | | | | 8 | | | area as directed. | | | | | + + [...] + + + +---------+ + + | Chlorhexidine | Apply topically. | | 0 | | | | Gluconate 4 % SOLN | Use one capful mixed | | | | 8 | | | in 1 pint of water | | | | | | | and scrub wound | | | | | | | daily or as | | | | | | | directed. | | | | | + + + +---------+ + + | docusate sodium | Take 100 mg by mouth | 30 | 0 | 11/09/19 | | | (COLACE) 100 MG | Twice daily as | capsule | | 18 | 8 | | capsule | needed for | | | | | | | Constipation. | | | | | + + [...] | | Take 1 tablet by | 8 | 0 | 11/09/19 | | | HYDROcodone-acetamin | mouth every 8 hours | tablet | | 18 | 8 | | ophen (NORCO) 5-325 | as needed for Pain. | | | | | | mg per tablet | For surgical pain, | | | | | | | wean off medication | | | | | + + + +---------+ + + | hydrophilic | Apply topically as | | 0 | | | | ointment | needed for Dry Skin. | | | | 8 | | | Apply a small | | | | | | | amount to affected | | | | | | | area. | | | | | + + [...] 0 | | | | | route. Use 1 lancet | | | | 8 | | | for blood testing as | | | | | | | directed. | | | | | + + + +---------+ + + | levoFLOXacin | Take 1 tablet by | 5 | 0 | 11/10/19 | | | (LEVAQUIN) 750 MG | mouth Every other | tablet | | 18 | 8 | | tabletIndications: | day for 10 days. | | | | | | [facility] | Indications: | | | | | | d Pneumonia, UTI - | [facility] | | | | | | LOWER | d Pneumonia, UTI - | | | | | | | Lower | | | | | + + [...] eyes 2 times | | | | 8 | | ophthalmic solution | daily. | | | | | + + + +---------+ + + | senna (SENOKOT) | Take 1 tablet by | 120 | 0 | 11/09/19 | | | 8.6 mg tablet | mouth Twice daily | tablet | | 18 | 8 | | | as needed for | | | | | | | Constipation. | | | | | + + + +---------+ + + | sertraline | Take 1 tablet by | 45 | 0 | 11/10/19 | | | (ZOLOFT) 100 mg | mouth Daily. | tablet | [...] as of this encounter Progress Notes Gopi Muñoz, DO - 11/09/2017 6:18 PM PST [facility] [address] [place] [address] PROGRESS NOTE Pt. Name/Age/: Ara Tilley 72 y.o. 1945 Med. Record Number: [id number] Date of admission: 11/01/2017 NEPHROLOGY HPI - Pt was seen at 1000 on HD with NxStage with QB 300 tolerating very well. I had a jay gthy discussion with her about her quality of life and energy level could significantly improve in the next 30 days with improvement in her az otemia, and uremia. I explained that she can Only shower with Aqua Guard, a occlusive wrap for around her CVC t o avoid getting it wet. I explained that she needs a permanent AVF as soon as feasible. Lab Results Component Value Date POCGLU 139 (H) 11/09/2017 POCGLU 330 (H) 11/08/2017 POCGLU 232 (H) 11/08/2017 POCGLU 217 (H) 11/08/2017 EXAM: BP 172/77 | Pulse 72 | Temp 36.4 C (97.5 F) (Oral) | Resp 16 | Ht 1.727 m (5' 8") | Wt 90.6 kg (199 lb 11.8 oz) | SpO2 98% | BMI 30.37 kg/m Tmax 36.8 (No wt. since 11/04/17).* Intake/Output Summary (Last 24 hours) at 11/09/17 1819 Last data filed at 11/09/17 1601 Gross per 24 hour Intake 728 ml Output 2749 ml Net -2021 ml Heart: Regular rate and rhythm with grade 1/6 YADI at LSB, no rub. Lungs: Right IJ CVC in place and is clear and dry. CTA bilaterally. Abdomen: soft, nontender, no guarding, NABS. Extremities: trace edema, clubbing, or cyanosis. SpO2: 98 % on room air LAB: Recent Labs 11/09/17 0641 11/07/17 0555 NA 135* < > 138 K 3.2* < > 3.6 CL 99 < > 103 CO2 27 < > 28 BUN 29* < > 24* CREA 2.99* < > 2.24* GFRNONAA 15* < > 22* GLU 167* < > 118* CALCIUM 8.2* < > 8.4 MG -- -- 1.7* < > = values in this interval not displayed. Recent Labs 11/09/17 0641 WBC 8.9 HGB 8.9* HCT 26.3* PLT 182 MCV 89.6 NEUPCT 68.4 LYMPCT 20.9 | 21.0 MONPCT 9.5 EOSPCT 0.8 | 1.0 IMPRESSION 1. 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 2. Bronchopneumonia-- Blood Cxs from 11/04 are still NGTD. 3. Anemia 2 to CKD-- now one EPO. 4. Type 2 DM-- BG trending back up, may need to resume her Lantus? 5. protein-calorie malnutrition-- eating better. On General Diet.* 6. major depression-- would favor adding a full dose SSRI to this regimen. I discussed th is with her and she is agreeable. PLAN 1. HD x 6 hrs, 4K+ bath, UF 1kg. 2. Could resume Losartan at 50-100 mg, QD to assist with BP control. Also to mitigate her CV risk given her risk factors? 3. Complete 10 days total of AB's. [facility] Nora Headley MD - 11/09/2017 4:24 PM PST Doing well today Dialysis run went well Does have some pain at neck and chest HD catheter sites, controlled with PO meds Vitals: 02/27/18 1445 11/09/17 1500 11/09/17 1515 11/09/17 1546 BP: 181/77 176/78 190/81 172/77 Pulse: 70 69 72 72 Resp: 16 16 Temp: 36.4 C (97.5 F) TempSrc: Oral SpO2: 98% 96% 96% 98% Weight: Height: Gen Get - alert, cooperative and no distress Lungs - respirations non labored Heart - RRR Incisions - Intact with skin glue at the neck incision. HD dressing c/d with no surround ing erythema or drainage. Neurologic - Alert and oriented. CN II-XII grossly intact. # ESRD s/p tunneled HD catheter - sounds like catheter running well - may follow up on as needed basis Chayo Ramirez RN - 11/09/2017 4:03 PM PST6 hour dialysis run completed with out any complications. Net 1000 ml UF achieved per Dr. Muñoz's order. 2 mls 1000u/ml hepa rin instilled into each catheter lumen after disconnecting and flushing. Capped with sterile yellow caps and labeled. Pt resting comfortably at this time and in good spirits with famil y present. Electronically signed by: Chayo Rodarte RN 11/09/2017 16:05 Dalia Finnegan [facility] - 11/09/2017 11:00 AM Krystle met with Nikki, and RN was present also. She was sitting up in her bed, receiving dialysis treatment, alert and orientedx4, and her manner was guarded at f irst but then she engaged fully with author, even joking around at times. Author facilitated abbreviated goals of care discussion, then followed up with advancde directive. Nikki began t he goals conversation by saying that she doesn't make goals, she is spontaneous and doesn't really believe in making plans. However, she then offered the example of what she would want to pursue medically ifshe got in an accident, and was able to proceed with the conversation within that context. While author was asking her the advance directive questions, medical s tudent asked to attend, and she agreed. Nikki was raised in [place] and in [place], [place]. She has two brothers and two sisters, and h ad 4 children of her own. Her oldest child, daughter, two months ago. Nikki is gri eving her loss and teared up while talking about her. Her other children live in [facility] and one son has been in longterm for 23 years. She hasn't seen him since he was arr ested and is hopeful she will get to see him next year, as he is schedule to be released at that time. 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 She has at least 4 ye ars post high school education and studied Stretchism. In the years prior to [facility], she worked at [employer]. Nikki's mother had chronic kidney disease and went through dialysis and eventually decided to stop seeking treatment, soon thereafter. This, coupled with the fact that tonia al other of her family members have had renal disease, makes that fact that Nikki must now cho ose to participate in dialysis an emotional issue for her. She also feels as though she christopher ot continue to live the same way, being spontaneous, and picking up and going to the [facility] reservation in [place]. She must plan it out, and that feels antithetical to her nature. Ginger francine was present and attentive while she discussed her grief around losing her family member s and her lifestyle, offered supportive appliance counselor. Chayo Ramirez RN - 11/09/2017 10:00 AM Cam RN arrived at [facility]'s room around 0800 to begin dialysis. Afte r introducing myself and explaining why I was here she immediately became visibly frustrated and started crying. She said "it's terrible doing this for 6 hours, I can't even eat or use the restroom during it. I haven't even gotten breakfast today yet and they sent me pig agai n." She said she didn't want to do dialysis yet and "nobody tells me shit, they just show up to do things." This RN reordered Ara breakfast with items that she chose and gave her time to eat while straightening the room up. Time allowed to use the restroom prior to initiating dialysis. After eating and having time to get situated Ara appeared more relaxed and was ok with s tarting dialysis. Electronically signed by: Chayo Rodarte RN 11/09/2017 10:38 India Santiago ARN P - 11/08/2017 6:50 PM PSTThis provider, Palliative Care BILINGUAL MEDICAL RECEPTIONIST, met briefly with "Keila Blunt rebecca this morning to introduce palliative care and begin to establish a relationship. Nikki wa s preparing to leave for surgery, permacath placement for dialysis. She is found to be very emotionally distressed by her renal function status, ESRD. She fee ls the poor management of her diabetes and associated impact on her kidneys is related to so cioeconomic barriers. She also states she is feeling isolated being so far from home and out of reach of her family (transportation issues). While distressed by the necessity of dialysis to prolong her life, she sees no real alterna tive to pressing on. Plans were made to follow up tomorrow when she has recovered from her procedure. Full goals of care, advance care discussions are planned. Mary Sanders MD - 11/08/2017 11:50 AM PSTFormatting of this note might be different from the triciaTrios HealthJA [place] [facility] PROGRESS NOTE Patient: Ara Tilley : 1945: Age: 72 y.o. MedRec: [id number] Admission date: 11/01/2017 Hospital day # : 7 Physician author: Mayelin Vega MD Today: 11/08/2017 Allergies: Allergies Allergen Reactions Lisinopril Pt states she does not remember what was the reaction she had to lisinopril. I asked her if it gave her a cough and she said "I cant remember, maybe it made me sick to my stomach". Naproxen Omeprazole Current Medications: Current Facility-Administered Medications Medication Dose Route Frequency Provider Last Rate Last Dose [NOV Hold] acetaminophen (TYLENOL) tablet 650 mg 650 mg Oral Q4H PRN Rupal Laguna MD [NOV Hold] albuterol 2.5 mg/3 mL nebulizer solution 5 mg 5 mg Nebulization RT Q4H PRN Anibal Malik MD [NOV Hold] atorvaSTATin (LIPITOR) tablet 20 mg 20 mg Oral Nightly Rupal Laguna MD 20 mg at 11/07/172052 [NOV Hold] bisacodyl (DULCOLAX) suppository 10 mg 10 mg Rectal Daily PRN Rupal Laguna MD [NOV Hold] calcium-vitamin D (OSCAL) 500 mg-200 units per tablet 1 tablet 1 tablet Ora l BID Rupal Laguna MD 1 tablet at 11/07/172051 [NOV Hold] dextrose 50% injection 12.5 g 12.5 g Intravenous PRN Haris Segal MD dextrose 50% injection 12.5-25 g 12.5-25 g Intravenous Q15 Min PRN Vinnie Last MD [NOV Hold] docusate sodium (COLACE) capsule 100 mg 100 mg Oral BID Olegario Peng MD 100 mg at 11/07/172051 [NOV Hold] docusate sodium (COLACE) capsule 100 mg 100 mg Oral BID PRN Rupal Laguna MD [NOV Hold] DULoxetine (CYMBALTA) DR capsule 30 mg 30 mg Oral Daily Rupal Laguna MD 30 mg at 11/07/17 0838 [NOV Hold] epoetin karthik (EPOGEN, PROCRIT) 10,000 units/mL injection 10,000 Units 10,00 0 Units Subcutaneous Once per day on Wed Gopi Muñoz, DO 10,000 Units at 0939 [NOV Hold] ferric gluconate (FERRLECIT) 125 mg in sodium chloride 0.9% 100 mL IVPB 125 mg Intravenous Daily Gopi Muñoz DO 110 mL/hr at 11/07/17 1143 125 mg at 11/07/17 1 143 [NOV Hold] furosemide (LASIX) tablet 80 mg 80 mg Oral BID (8 and 16) Darlin Moseley MD 80 mg at 11/07/17 1712 [MAR Hold] gabapentin (NEURONTIN) capsule 100 mg 100 mg Oral Daily at Noon Rupal lmoas MD 100 mg at 11/07/17 1159 [NOV Hold] gabapentin (NEURONTIN) capsule 200 mg 200 mg Oral BID Rupal Laguna MD 2 00 mg at 11/07/17 2053 [NOV Hold] heparin 1,000 units/mL injection 500 Units 500 Units Intravenous With each dialysis Darlin Moseley MD 500 Units at 11/06/17 0820 [NOV Hold] HYDROcodone-acetaminophen (NORCO) 5-325 mg per tablet 1-2 tablet 1-2 tablet Oral Q4H PRN Rupal Laguna MD 2 tablet at 11/06/17 1653 [NOV Hold] insulin lispro (humaLOG KWIKPEN) 100 units/mL injection (pen) 0-12 Units 0- 12 Units Subcutaneous 4x Daily WC and HS Anibal Malik MD 4 Units at 11/08/17 0949 [NOV Hold] insulin lispro (humaLOG KWIKPEN) 100 units/mL injection (pen) 0-6 Units 0-6 Units Subcutaneous Q2H PRN Haris Segal MD ketamine 50 mg/mL 30 mg, bupivacaine (PF) (MARCAINE) 0.25% 49.75 mL, EPINEPHrine 1 mg/m L 0.25 mg [employer] Consult[employer] Nora Leo MD [NOV Hold] labetalol (NORMODYNE) tablet 100 mg 100 mg Oral BID Darlin Moseley MD 100 mg at 11/08/17 0948 [NOV Hold] levoFLOXacin (LEVAQUIN) tablet 750 mg 750 mg Oral Every Other Day Olegario feliz MD 750 mg at 11/08/17 0945 [NOV Hold] levothyroxine (SYNTHROID) tablet 75 mcg 75 mcg Oral QAM AC Jessie Diop 75 mcg at 11/07/17 0642 [NOV Hold] lidocaine (LIDODERM) 5% patch 1 patch 1 patch Transdermal Daily PRN Rupal Laguna MD [MAR Hold] losartan (COZAAR) tablet 25 mg 25 mg Oral Daily Darlin Moseley MD 25 m g at 11/08/17 0948 [NOV Hold] olopatadine (PATANOL) 0.1% ophthalmic solution 1 drop 1 drop Both Eyes BID Rupal Laguna MD 1 drop at 11/08/17 0956 [MAR Hold] ondansetron (ZOFRAN) injection 4 mg 4 mg Intravenous Q6H PRN Rupal Laguna MD 4 mg at 11/05/17 1745 [MAR Hold] pantoprazole (PROTONIX) DR tablet 40 mg 40 mg Oral QAM AC Rupal Laguna MD 40 mg at 11/07/17 0642 [MAR Hold] polyethylene glycol (MIRALAX) powder 17 g 17 g Oral BID Olegario Peng MD 17 g at 11/06/17 0905 [MAR Hold] polyethylene glycol (MIRALAX) powder 17 g 17 g Oral Daily PRN Rupal Laguna MD [MAR Hold] senna (SENOKOT) tablet 8.6 mg 8.6 mg Oral BID PRN Rupal Laguna MD sodium chloride 0.9% (NS) infusion Intravenous Continuous Vinnie Last MD 50 mL/hr a t 11/08/17 1104 Facility-Administered Medications Ordered in Other Encounters Medication Dose Route Frequency Provider Last Rate Last Dose ceFAZolin (ANCEF, KEFZOL) injection Intravenous PRN Vinnie Last MD 1 g at 8 1144 Current Infusions: sodium chloride 0.9% 50 mL/hr at 11/08/17 1104 Objective Data Point of care glucose Recent Labs Lab 11/08/17 0657 11/07/17 2056 11/07/17 1636 11/07/17 1151 11/07/17 0643 11/06/17 2132 POCGLU 217* 176* 210* 189* 128* 161* Labs last 24 hours Recent Results (from the past 24 hour(s)) POC Glucose Collection Time: 11/07/17 11:51 Result Value Ref Range Glucose, POC 189 (H) 70 - 109 mg/dL POC Glucose Collection Time: 11/07/17 16:36 Result Value Ref Range Glucose, POC 210 (H) 70 - 109 mg/dL POC Glucose Collection Time: 11/07/17 20:56 Result Value Ref Range Glucose, POC 176 (H) 70 - 109 mg/dL CBC with Differential Collection Time: 11/08/17 5:28 Result Value Ref Range WBC 8.9 4.0 - 11.0 K/uL RBC 2.81 (L) 3.70 - 5.20 M/uL Hgb 8.7 (L) 11.5 - 16.0 g/dL Hct 25.4 (L) 34.0 - 47.0 % MCV 90.2 83.0 - 101.0 fL MCH 30.8 28.0 - 35.0 pg MCHC 34.2 32.0 - 36.0 g/dL RDW-CV 13.9 <15.0 % Platelet Count 171 140 - 440 K/uL MPV 8.4 fL % Neutrophils 71.1 45.0 - 82.0 % % Lymphocytes 17.8 (L) 20.0 - 45.0 % % Monocytes 9.2 4.0 - 12.0 % % Eosinophils 1.6 0.0 - 5.0 % % Basophils 0.3 0.0 - 1.0 % Absolute Neutrophils 6.30 1.80 - 8.50 K/uL Absolute Lymphocytes 1.60 0.60 - 3.20 K/uL Absolute Monocytes 0.80 0.00 - 1.00 K/uL Absolute Eosinophils 0.10 0.00 - 0.40 K/uL Absolute Basophils 0.00 0.00 - 0.10 K/uL Basic Metabolic Panel Collection Time: 11/08/17 5:28 Result Value Ref Range NA 138 136 - 149 mmol/L K 3.4 (L) 3.5 - 5.1 mmol/L CL 103 98 - 109 mmol/L CO2 27 24 - 31 mmol/L ANION GAP 8 3 - 16 mmol/L GLUCOSE 219 (H) 70 - 109 mg/dL BUN 27 (H) 7 - 18 mg/dL Creatinine, Serum/Plasma 2.75 (H) 0.60 - 1.30 mg/dL eGFR if not 17 (L) >=60 mL/min/1.73m2 CALCIUM 8.2 (L) 8.3 - 10.5 mg/dL BUN/CREA 9.8 Slide Review, Peripheral Smear Collection Time: 11/08/17 5:28 Result Value Ref Range RBC MORPHOLOGY Normal WBC MORPHOLOGY Normal Platelet Estimate Adequate Adequate POC Glucose Collection Time: 11/08/17 6:57 Result Value Ref Range Glucose, POC 217 (H) 70 - 109 mg/dL Creatinine, Urine, 24Hr Collection Time: 11/08/17 9:54 Result Value Ref Range Urine Time 24 HR Urine Volume 1,470 mL Creatinine, Urine 34 mg/dL 24HR URINE CREA CALCULATION 500 (L) 600 - 1,800 mg/24hrs Creatinine Clearance, Result Collection Time: 11/08/17 9:54 Result Value Ref Range Urine Time 24 HR Urine Volume 1,470 mL Height (IN) 68 in Weight, lbs 200 lbs BODY SURFACE AREA 2.04 m2 Creatinine, Serum/Plasma 2.75 (H) 0.60 - 1.30 mg/dL Creatinine, Urine 600 - 1,600 mg/24hr CREATININE CLEARANCE 76.00 - 116.00 mL/min Creatinine, Urine mg/dL Micro results Microbiology Results (72 hrs) No results found for the last 72 hours. Radiology results No results found. Vitals Ranges: Temp: [36.2 C (97.2 F)-37.4 C (99.3 F)] 37 C (98.6 F) Pulse: [72-80] 72 Resp: [16-18] 16 BP: (160-180)/(70-78) 160/70 Vitals: Temp: 37 C (98.6 F) BP: 160/70 Pulse: 72 Resp: 16 SpO2: 93 % SpO2 93 % on nasal cannula at flow rate 0.5 (placed on room air)L/min Subjective Patient seen and examined at bedside, she is feeling down and keeps repeating that she does not want to undergo HD or have a permanent catheter. She understands that the alternative i s if her kidneys completely fail, and they have been rapidly deteriorating. She feels that she owns to her family trying to do everything, although she is uncertain she wants to go through with it. Exam Constitutional: Obese woman in no acute distress, she is tearful and anxious HEENT: No conjunctivitis nor scleral icterus. Clear oropharynx. No adenopathy Cardiac: Normal S1 S2, regular, + murmur Lung: decreased breath sounds in all gaytan, with no wheezing appreciated Abdomen: + BS, Soft, NT, no HSM nor masses Psych: depressed, anxious. AAO x 3 Extremities: no edema in bilateral lower extremities Neuro: Nonfocal, strength intact Assessment and Plan 1. Sepsis 2/ to likely UTI +/- CAP- initially presented with hypoglycemia and hypothermia, started having fevers on 11/02. -Blood culture 2/20 1/4 Strep Bovis. Bld culture 11/03 10/17 staph epi. Repeat blood cultures NGTD. UA (+), urine culture E coli. -TTE 11/05 EF 60-65%, no vegetation/endocarditis seen. -Continueceftriaxone started 11/02, azithromycin 11/03, changed to levofloxacin 11/04, plan for 14 day treatment -CXR with mild scarring at lung apices. -CT thorax 11/03 shows multifocal pneumonia. -procal negative. -CT abdomen 11/02 showed extensive ground glass opacities within posterior LLL concerning fo r PNA. -Will need outpatient colonoscopy due to Colon cancer risk due to strep bovis -HD catheter removed- need to evaluate for permacath on Wednesday if cultures remain clear fro m 11/06 - will need to contact nephrology then to determine if patient will continue dialysis 2. 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 CAD- no signs of ACS, EKG RBBB, trop 0.03 at OSH -Continue aspirin, lipitor 4. Hypothyroidism -TSH WNL -Continue levothyroxine 5. HTN uncontrolled -Continue Labetalol and furosemide -Continue losartan 25 mg daily PPX: HSQ FEN: renal Mayelin Vega 11/08/2017 11:50 [facility] Nora Headley MD - 11/08/2017 10:06 AM PST Doing well this morning Slightly anxious about the surgery Vitals: 11/07/17 2203 11/08/17 0300 11/08/17 0730 11/08/17 0734 BP: 164/72 160/70 Pulse: 80 80 75 72 Resp: 16 16 16 16 Temp: 36.2 C (97.2 F) 37 C (98.6 F) TempSrc: Oral Oral SpO2: 97% 96% 97% 93% Weight: Height: Gen Get - alert, cooperative and no distress Lungs - respirations non labored Heart - RRR Abdomen - soft and nondistended. Neurologic - Alert and oriented. CN II-XII grossly intact. IMPRESSION: 1. End-stage renal disease 4/5 in need of a more permanent dialysis catheter PLAN: 1. NPO today 2. OR today for tunneled HD catheter Nora Headley MD - 11/07/2017 2:23 PM PSTFormatting of this note might be dif ferent from the original. Feels tired today No complaints of pain Vitals: 11/06/17 2359 11/07/17 0310 11/07/17 0824 11/07/17 0825 BP: 180/73 188/84 178/72 Pulse: 73 75 79 Resp: 16 16 18 Temp: 36.4 C (97.5 F) 37.1 C (98.7 F) TempSrc: Oral Oral SpO2: 97% 97% 96% Weight: Height: Gen Get - alert, cooperative and no distress Lungs - respirations non labored Heart - RRR ENT - dressing on right neck from temporary hemodialysis catheter removal clean and dry Abdomen - soft and nondistended. Neurologic - Alert and oriented. CN II-XII grossly intact. IMPRESSION: 1. End-stage renal disease 4/5 in need of a more permanent dialysis catheter PLAN: 1. Nothing by mouth after midnight 2. Will place a tunneled hemodialysis catheter on Wednesday in the operating room. She is now scheduled for 1:30 PM. We discussed placement of catheter on right or left chest wall. A gain, risks and possible complications including bleeding, infection, pneumothorax, hemothor ax, catheter/line infection or occlusion, cardiac arrhthmia, damage to the heart or lungs wa s explained. No guarantees given or implied. The patient agreed to proceed with surgery. Consent was signed. Mayelin Okeefe MD - 11/07/2017 12:56 PM PSTFormatting of this note might be different f rom the original. [facility] HOSPITALIST PROGRESS NOTE Patient: Ara Tilley : 1945: Age: 72 y.o. MedRec: [id number] Admission date: 11/01/2017 Hospital day # : 6 Physician author: Mayelin Vega MD Today: 11/07/2017 Allergies: Allergies Allergen Reactions Lisinopril Pt states [...] (TYLENOL) tablet 650 mg 650 mg Oral Q4H PRN Rupal Laguna MD albuterol 2.5 mg/3 mL nebulizer solution 5 mg 5 mg Nebulization RT Q4H PRN Anibal arcos MD atorvaSTATin (LIPITOR) tablet 20 mg 20 mg Oral Nightly Rupal Laguna MD 20 mg at 2129 bisacodyl (DULCOLAX) suppository 10 mg 10 mg Rectal Daily PRN Rupal Laguna MD calcium-vitamin D (OSCAL) 500 mg-200 units per tablet 1 tablet 1 tablet Oral BID Abbie Laguna MD 1 tablet at 11/07/17 0833 dextrose 50% injection 12.5 g 12.5 g Intravenous PRN Haris Segal MD docusate sodium (COLACE) capsule 100 mg 100 mg Oral BID Olegario Peng MD 100 mg a t 11/07/17 0839 docusate sodium (COLACE) capsule 100 mg 100 mg Oral BID PRN Rupal Laguna MD DULoxetine (CYMBALTA) DR capsule 30 mg 30 mg Oral Daily Rupal Laguna MD 30 mg at 0 11/07/17 0838 epoetin karthik (EPOGEN, PROCRIT) 10,000 units/mL injection 10,000 Units 10,000 Units Sub cutaneous Once per day on Wed Gopi Muñoz DO 10,000 Units at 11/05/17 1015 ferric gluconate (FERRLECIT) 125 mg in sodium chloride 0.9% 100 mL IVPB 125 mg Intrave nous Daily Gopi Muñoz, DO 110 mL/hr at 11/07/17 1143 125 mg at 11/07/17 1143 furosemide (LASIX) tablet 80 mg 80 mg Oral BID (8 and 16) Darlin Moseley MD 80 mg at 11/07/17 0838 gabapentin (NEURONTIN) capsule 100 mg 100 mg Oral Daily at Noon Rupal Laguna MD 10 0 mg at 11/07/17 1159 gabapentin (NEURONTIN) capsule 200 mg 200 mg Oral BID Rupal Laguna MD 200 mg at 0839 heparin 1,000 units/mL injection 500 Units 500 Units Intravenous With each dialysis Je angelica Moseley MD 500 Units at 11/06/17 0820 HYDROcodone-acetaminophen (NORCO) 5-325 mg per tablet 1-2 tablet 1-2 tablet Oral Q4H P RN Rupal Laguna MD 2 tablet at 11/06/17 1653 insulin lispro (humaLOG KWIKPEN) 100 units/mL injection (pen) 0-12 Units 0-12 Units Weller bcutaneous 4x Daily WC and HS Anibal Malik MD 2 Units at 11/07/17 1200 insulin lispro (humaLOG KWIKPEN) 100 units/mL injection (pen) 0-6 Units 0-6 Units Subc utaneous Q2H PRN Haris Segal MD labetalol (NORMODYNE) tablet 100 mg 100 mg Oral BID Darlin Moseley MD 100 mg at 0 11/07/17 0838 levoFLOXacin (LEVAQUIN) tablet 750 mg 750 mg Oral Every Other Day Olegario Peng MD 750 mg at 11/06/17 0902 levothyroxine (SYNTHROID) tablet 75 mcg 75 mcg Oral QAM AC Rupal Laguna MD 75 mcg at 11/07/17 0642 lidocaine (LIDODERM) 5% patch 1 patch 1 patch Transdermal Daily PRN Rupal Laguna MD losartan (COZAAR) tablet 25 mg 25 mg Oral Daily Darlin Moseley MD 25 mg at 1143 olopatadine (PATANOL) 0.1% ophthalmic solution 1 drop 1 drop Both Eyes BID Rupal lomas MD 1 drop at 11/07/17 0840 ondansetron (ZOFRAN) injection 4 mg 4 mg Intravenous Q6H PRN Rupal Laguna MD 4 mg at 11/05/17 1745 pantoprazole (PROTONIX) DR tablet 40 mg 40 mg Oral QAM AC Rupal Laguna MD 40 mg at 11/07/17 0642 polyethylene glycol (MIRALAX) powder 17 g 17 g Oral BID Olegario Peng MD 17 g at 11/06/17 0905 polyethylene glycol (MIRALAX) powder 17 g 17 g Oral Daily PRN Rupal Laguna MD senna (SENOKOT) tablet 8.6 mg 8.6 mg Oral BID PRN Rupal Laguna MD Current Infusions: Objective Data Point of care glucose Recent Labs Lab 11/07/17 1151 11/07/17 0643 11/06/17 2132 11/06/17 1647 11/06/17 1201 11/06/17 0630 POCGLU 189* 128* 161* 104 111* 110* Labs last 24 hours Recent Results (from the past 24 hour(s)) POC Glucose Collection Time: 11/06/17 16:47 Result Value Ref Range Glucose, POC 104 70 - 109 mg/dL POC Glucose Collection Time: 11/06/17 21:32 Result Value Ref Range Glucose, POC 161 (H) 70 - 109 mg/dL Basic Metabolic Panel Collection Time: 11/07/17 5:55 Result Value Ref Range NA 138 136 - 149 mmol/L K 3.6 3.5 - 5.1 mmol/L CL 103 98 - 109 mmol/L CO2 28 24 - 31 mmol/L ANION GAP 7 3 - 16 mmol/L GLUCOSE 118 (H) 70 - 109 mg/dL BUN 24 (H) 7 - 18 mg/dL Creatinine, Serum/Plasma 2.24 (H) 0.60 - 1.30 mg/dL eGFR if not 22 (L) >=60 mL/min/1.73m2 CALCIUM 8.4 8.3 - 10.5 mg/dL BUN/CREA 10.7 CBC with Differential Collection Time: 11/07/17 5:55 Result Value Ref Range WBC 9.9 4.0 - 11.0 K/uL RBC 3.02 (L) 3.70 - 5.20 M/uL Hgb 9.1 (L) 11.5 - 16.0 g/dL Hct 27.1 (L) 34.0 - 47.0 % MCV 89.9 83.0 - 101.0 fL MCH 30.3 28.0 - 35.0 pg MCHC 33.7 32.0 - 36.0 g/dL RDW-CV 13.7 <15.0 % Platelet Count 172 140 - 440 K/uL MPV 8.5 fL % Neutrophils 76.1 45.0 - 82.0 % % Lymphocytes 15.1 (L) 20.0 - 45.0 % % Monocytes 7.2 4.0 - 12.0 % % Eosinophils 1.2 0.0 - 5.0 % % Basophils 0.4 0.0 - 1.0 % Absolute Neutrophils 7.60 1.80 - 8.50 K/uL Absolute Lymphocytes 1.50 0.60 - 3.20 K/uL Absolute Monocytes 0.70 0.00 - 1.00 K/uL Absolute Eosinophils 0.10 0.00 - 0.40 K/uL Absolute Basophils 0.00 0.00 - 0.10 K/uL Magnesium Collection Time: 11/07/17 5:55 Result Value Ref Range MG 1.7 (L) 1.8 - 2.5 mg/dL Slide Review, Peripheral Smear Collection Time: 11/07/17 5:55 Result Value Ref Range RBC MORPHOLOGY Normal WBC MORPHOLOGY Normal Platelet Estimate Adequate Adequate POC Glucose Collection Time: 11/07/17 6:43 Result Value Ref Range Glucose, POC 128 (H) 70 - 109 mg/dL POC Glucose Collection Time: 11/07/17 11:51 Result Value Ref Range Glucose, POC 189 (H) 70 - 109 mg/dL Micro results Microbiology Results (72 hrs) Procedure Component Value Units Date/Time Culture, Blood [[id number]] (Normal) Collected: 11/04/172121 Order Status: Completed Lab Status: Preliminary result Updated: 11/05/17930 Specimen: Blood from Line Culture No growth: Monitored continually by instrument for 5 days Culture, Blood [[id number]] (Normal) Collected: 11/04/172102 Order Status: Completed Lab Status: Preliminary result Updated: 11/05/17910 Specimen: Blood from Line Culture No growth: Monitored continually by instrument for 5 days Radiology results No results found. Vitals Ranges: Temp: [36.4 C (97.5 F)-37.1 C (98.7 F)] 37.1 C (98.7 F) Pulse: [71-85] 79 Resp: [12-18] 18 BP: (170-188)/(72-85) 178/72 Vitals: Temp: 37.1 C (98.7 F) BP: 178/72 Pulse: 79 Resp: 18 SpO2: 96 % SpO2 96 % on nasal cannula at flow rate 1L/min Subjective Patient reports no new complaints Exam Constitutional: Obese woman in no acute distress, chroically ill HEENT: No conjunctivitis nor scleral icterus. Clear oropharynx. No adenopathy Cardiac: Normal S1 S2, regular, no murmur appreciated Lung: decreased breath sounds in all gaytan Abdomen: + BS, Soft, NT, no HSM nor masses Psych:AAO x 3 Extremities: no edema in bilateral lower extremities Neuro: Nonfocal, strength intac Assessment and Plan 1. Sepsis 10/15 to likely UTI +/- CAP- initially presented with hypoglycemia and hypothermia -Blood culture 11/02 09/16 Strep Bovis. UA (+), urine culture E coli. Bld culture 11/03 10/17 sta ph epi. -TTE 11/05 EF 60-65%, no vegetation/endocarditis seen. -Continueceftriaxone started 11/02, azithromycin 11/03, changed to levofloxacin 11/04, plan for 14 day treatment -Repeat blood cultures NGTD -CXR with mild scarring at lung apices. -CT thorax 11/03 shows multifocal pneumonia. -procal negative. -Flu swab negative. -Patient started having fevers on 11/02. -CT abdomen 11/02 showed extensive ground glass opacities within posterior LLL concerning fo r PNA. -Will need outpatient colonoscopy due to Colon cancer risk due to strep bovis -HD catheter removed- need to evaluate for permacath on Wednesday if cultures remain clear fro m 11/06 - will need to contact nephrology then to determine if patient will continue dialysis 2. 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 CAD- no signs of ACS, EKG RBBB, trop 0.03 at OSH -Continue aspirin, lipitor 4. Hypothyroidism -TSH WNL -Continue levothyroxine 5. HTN uncontrolled -Continue Labetalol and furosemide -restart losartan 25 mg daily PPX: HSQ FEN: renal Mayelin Vega 11/07/2017 12:57 [facility] eCordell clark MD - 11/07/2017 9:43 AM PSTFormatting of this note might be different from the [facility] NEPHROLOGY progress note Patient: Ara Tilley : 1945 Hospital Day # 6 ASSESMENT AND PLAN 1. End-stage renal disease, due to diabetic kidney disease. Nephrotic range proteinuria. Pt initiate hemodialysis on 11/03/17 via a temporary R IJ catheter. Pt received hemodialysis on 11/03, 11/04, 11/06. Temporary line removed on 11/06 after dialysis, to give pt a line holiday. Pt's UOP appears to be picking up. Will check a 24-hr urine creatinine clearance. Tentatively, plan for tunneled dialysis catheter on Wednesday. Appreciate Dr. Leo's help. 2. Hypertension. On oral furosemide. Good UOP. Restarted labetalol 100 mg BID on 11/06/17. Will add back losartan 25 mg daily. 3. Streptococcus infantarius ssp coli (S bovis) bacteremia (2/4 bottles on ). Unclear source. Urine culture grew E coli. Repeat blood culture on 11/03/17 had 2/4 bottle s positive for Staph epidermidis. Group D strep is associated with liver disease or colon disease. Pt will need a colonoscopy as an outpatient to evaluate for colon disease (neoplasm). Echo negative for vegetation. Blood cultures 11/04/17 are NGTD. Giving pt a line holiday today. On levofloxacin. 4. E coli UTI. On levofloxacin. 5. Anemia due to CKD. On ferrlecit and Epogen. 24 HR EVENTS Blood cultures from 11/04 NGTD HD x 4 hrs, UF 2200 mL R IJ catheter removed UOP [address] Leo consulted regarding tunneled dialysis catheter SUBJECTIVE Pt tolerated dialysis yesterday without issues. Pt denies shortness of breath, chest pain, abdominal pain, edema. CURRENT MEDICATIONS Scheduled Meds: atorvaSTATin 20 mg Oral Nightly calcium-vitamin D 1 tablet Oral BID docusate sodium 100 mg Oral BID DULoxetine 30 mg Oral Daily epoetin karthik 10,000 Units Subcutaneous Once per day on Wed ferric gluconate 125 mg Intravenous Daily furosemide 80 mg Oral BID (8 and 16) gabapentin 100 mg Oral Daily at Noon gabapentin 200 mg Oral BID heparin 500 Units Intravenous With each dialysis insulin lispro 0-12 Units Subcutaneous 4x Daily WC and HS labetalol 100 mg Oral BID levoFLOXacin 750 mg Oral Every Other Day levothyroxine 75 mcg Oral QAM AC olopatadine 1 drop Both Eyes BID pantoprazole 40 mg Oral QAM AC polyethylene glycol 17 g Oral BID Continuous Infusions: PRN Meds:acetaminophen, albuterol, bisacodyl, Hypoglycemia Management AND POCT Glucose AND dextrose, docusate sodium, HYDROcodone-acetaminophen, insulin lispro, lidocaine, on dansetron, polyethylene glycol, senna OBJECTIVE VITAL SIGNS: Vital sign ranges for last 24hrs: Input and output for last 24hrs: Temp: [36.4 C (97.5 F)-37.1 C (98.7 F)] 37.1 C (98.7 F) Pulse: [70-85] 79 Resp: [12-19] 18 BP: (170-189)/(72-95) 178/72 SpO2 Av.3 % Min: 95 % Max: 99 % Flow (L/min) Av.3 Min: 1 Max: 2 11/06 0701 - 11/07 0700 In: 521.3 [P.O.:500; I.V.:21.3] Out: 4587 [Urine:2375] General: In no acute distress Cardiac: Regular rate and rhythm, normal S1 and S2. No lower peripheral edema. Chest: Normal respiratory effort. Clear to auscultation. No crackles. Abdomen: Soft, non-distended, non-tender, normal bowel sounds. Skin: No rash. Neuro: Alert, interactive. Psych: Normal affect. Normal speech. LABORATORY DATA: Recent Labs Lab 11/07/17 0555 11/06/17 0642 11/05/17 0612 WBC 9.9 9.9 14.0* HGB 9.1* 9.0* 8.3* HCT 27.1* 26.5* 24.9* PLT Adequate | 172 Adequate | 176 154 Recent Labs Lab 11/07/17 0555 11/06/17 0642 11/05/17 0612 11/04/17 0419 11/03/17 0502 11/02/17 0741 NA 138 139 135* 135* 135* 137 K 3.6 3.9 4.4 3.9 4.5 4.3 CL 103 105 101 102 102 104 CO2 28 28 28 27 23* 23* BUN 24* 30* 28* 43* 56* 53* CREA 2.24* 2.40* 1.88* 2.38* 3.65* 3.54* MG 1.7* 1.8 1.9 1.9 2.0 2.2 CALCIUM 8.4 8.7 8.2* 8.1* 8.2* 8.7 PHOS -- 2.4* 2.3* 2.9 4.7* 4.8* Diagnostic Studies: Available data and images were reviewed personally. Significant results and findings are ad dressed here or in the Assessment and Plan. Darlin Moseley MD Electronically signed: 11/07/2017 9:43 [facility] NEPHROLOGY Olegario Keen M D - 11/06/2017 2:15 PM PST [facility] [place] HOSPITALIST PROGRESS NOTE Patient: Ara Tilley : 1945: Age: 72 y.o. MedRec: [id number] Admission date: 11/01/2017 Hospital day # : 5 Physician author: Olegario Peng MD Today: 11/06/2017 Allergies: Allergies Allergen Reactions Lisinopril Pt states [...] (TYLENOL) tablet 650 mg 650 mg Oral Q4H PRN Rupal Laguna MD albumin 25% IVPB 12.5 g 12.5 g Intravenous PRN Darlin Moseley MD albuterol 2.5 mg/3 mL nebulizer solution 5 mg 5 mg Nebulization RT Q4H PRN Anibla arcos MD atorvaSTATin (LIPITOR) tablet 20 mg 20 mg Oral Nightly Rupal Laguna MD 20 mg at 2128 bisacodyl (DULCOLAX) suppository 10 mg 10 mg Rectal Daily PRN Rupal Laguna MD calcium-vitamin D (OSCAL) 500 mg-200 units per tablet 1 tablet 1 tablet Oral BID Abbie Laguna MD 1 tablet at 11/06/17 0904 dextrose 50% injection 12.5 g 12.5 g Intravenous PRN Haris Segal MD docusate sodium (COLACE) capsule 100 mg 100 mg Oral BID Olegario Peng MD 100 mg a t 11/06/17 0905 docusate sodium (COLACE) capsule 100 mg 100 mg Oral BID PRN Rupal Laguna MD DULoxetine (CYMBALTA) DR capsule 30 mg 30 mg Oral Daily Rupal Laguna MD 30 mg at 0 11/06/17 0904 epoetin karthik (EPOGEN, PROCRIT) 10,000 units/mL injection 10,000 Units 10,000 Units Sub cutaneous Once per day on Wed Gopi Muñoz, DO 10,000 Units at 11/05/17 1015 ferric gluconate (FERRLECIT) 125 mg in sodium chloride 0.9% 100 mL IVPB 125 mg Intrave nous Daily Gopi Muñoz DO 110 mL/hr at 11/06/17 1344 125 mg at 11/06/17 1344 furosemide (LASIX) tablet 80 mg 80 mg Oral BID (8 and 16) Darlin Moseley MD 80 mg at 11/06/17 1343 gabapentin (NEURONTIN) capsule 100 mg 100 mg Oral Daily at Noon Rupal Laguna MD 10 0 mg at 11/06/17 1155 gabapentin (NEURONTIN) capsule 200 mg 200 mg Oral BID Rupal Laguna MD 200 mg at 0904 heparin 1,000 units/mL injection 1,500-6,000 Units 1,500-6,000 Units Intercatheter PRN Darlin Moseley MD 5,000 Units at 11/06/17 1316 heparin 1,000 units/mL injection 500 Units 500 Units Intravenous With each dialysis Je angelica Moseley MD 500 Units at 11/06/17 0820 heparin in half-normal saline 50 units/mL infusion 200 Units/hr Intravenous Continuous Darlin Moseley MD Stopped at 11/06/17 1312 HYDROcodone-acetaminophen (NORCO) 5-325 mg per tablet 1-2 tablet 1-2 tablet Oral Q4H P RN Rupal Laguna MD 2 tablet at 11/05/17 0134 insulin lispro (humaLOG KWIKPEN) 100 units/mL injection (pen) 0-12 Units 0-12 Units Weller bcutaneous 4x Daily WC and HS Anibal Malik MD 2 Units at 11/04/17 1709 insulin lispro (humaLOG KWIKPEN) 100 units/mL injection (pen) 0-6 Units 0-6 Units Subc utaneous Q2H PRN Haris Segal MD labetalol (NORMODYNE) tablet 100 mg 100 mg Oral BID Darlin Moseley MD 100 mg at 0 11/06/17 1343 levoFLOXacin (LEVAQUIN) tablet 750 mg 750 mg Oral Every Other Day Olegario Peng MD 750 mg at 11/06/17 0902 levothyroxine (SYNTHROID) tablet 75 mcg 75 mcg Oral QAM AC Rupal Laguna MD 75 mcg at 11/06/17 0631 lidocaine (LIDODERM) 5% patch 1 patch 1 patch Transdermal Daily PRN Rupal Laguna MD olopatadine (PATANOL) 0.1% ophthalmic solution 1 drop 1 drop Both Eyes BID Rupal lomas MD 1 drop at 11/06/17 0912 ondansetron (ZOFRAN) injection 4 mg 4 mg Intravenous Q6H PRN Rupal Laguna MD 4 mg at 11/05/17 1745 pantoprazole (PROTONIX) DR tablet 40 mg 40 mg Oral QAM AC Rupal Laguna MD 40 mg at 11/06/17 0631 polyethylene glycol (MIRALAX) powder 17 g 17 g Oral BID Olegario Peng MD 17 g at 11/06/17 0905 polyethylene glycol (MIRALAX) powder 17 g 17 g Oral Daily PRN Rupal Laguna MD senna (SENOKOT) tablet 8.6 mg 8.6 mg Oral BID PRN Rupal Laguna MD Current Infusions: Heparin Infusion Stopped (11/06/17 1312) Objective Data Point of care glucose Recent Labs Lab 11/06/17 1201 11/06/17 0630 11/05/17 2134 11/05/17 1739 11/05/17 1152 11/05/17 0639 POCGLU 111* 110* 122* 121* 151* 129* Labs last 24 hours Recent Results (from the past 24 hour(s)) ECHO Complete Collection Time: 11/05/17 15:58 Result Value Ref Range LVEF-TTE TRANSTHORACIC ECHO 65 POC Glucose Collection Time: 11/05/17 17:39 Result Value Ref Range Glucose, POC 121 (H) 70 - 109 mg/dL POC Glucose Collection Time: 11/05/17 21:34 Result Value Ref Range Glucose, POC 122 (H) 70 - 109 mg/dL POC Glucose Collection Time: 11/06/17 6:30 Result Value Ref Range Glucose, POC 110 (H) 70 - 109 mg/dL Basic Metabolic Panel Collection Time: 11/06/17 6:42 Result Value Ref Range NA 139 136 - 149 mmol/L K 3.9 3.5 - 5.1 mmol/L CL 105 98 - 109 mmol/L CO2 28 24 - 31 mmol/L ANION GAP 6 3 - 16 mmol/L GLUCOSE 108 70 - 109 mg/dL BUN 30 (H) 7 - 18 mg/dL Creatinine, Serum/Plasma 2.40 (H) 0.60 - 1.30 mg/dL eGFR if not 20 (L) >=60 mL/min/1.73m2 CALCIUM 8.7 8.3 - 10.5 mg/dL BUN/CREA 12.5 CBC with Differential Collection Time: 11/06/17 6:42 Result Value Ref Range WBC 9.9 4.0 - 11.0 K/uL RBC 2.94 (L) 3.70 - 5.20 M/uL Hgb 9.0 (L) 11.5 - 16.0 g/dL Hct 26.5 (L) 34.0 - 47.0 % MCV 90.2 83.0 - 101.0 fL MCH 30.6 28.0 - 35.0 pg MCHC 33.9 32.0 - 36.0 g/dL RDW-CV 14.0 <15.0 % Platelet Count 176 140 - 440 K/uL MPV 9.0 fL % Neutrophils 79.5 45.0 - 82.0 % % Lymphocytes 14.1 (L) 20.0 - 45.0 % % Monocytes 4.9 4.0 - 12.0 % % Eosinophils 0.9 0.0 - 5.0 % % Basophils 0.6 0.0 - 1.0 % Absolute Neutrophils 7.90 1.80 - 8.50 K/uL Absolute Lymphocytes 1.40 0.60 - 3.20 K/uL Absolute Monocytes 0.50 0.00 - 1.00 K/uL Absolute Eosinophils 0.10 0.00 - 0.40 K/uL Absolute Basophils 0.10 0.00 - 0.10 K/uL Magnesium Collection Time: 11/06/17 6:42 Result Value Ref Range MG 1.8 1.8 - 2.5 mg/dL Phosphorus Collection Time: 11/06/17 6:42 Result Value Ref Range PHOSPHORUS 2.4 (L) 2.5 - 4.6 mg/dL Slide Review, Peripheral Smear Collection Time: 11/06/17 6:42 Result Value Ref Range RBC MORPHOLOGY Normal WBC MORPHOLOGY Normal Platelet Estimate Adequate Adequate POC Glucose Collection Time: 11/06/17 12:01 Result Value Ref Range Glucose, POC 111 (H) 70 - 109 mg/dL Micro results Microbiology Results (72 hrs) Procedure Component Value Units Date/Time Culture, Blood [[id number]] (Normal) Collected: 11/04/172121 Order Status: Completed Lab Status: Preliminary result Updated: 11/05/17930 Specimen: Blood from Line Culture No growth: Monitored continually by instrument for 5 days Culture, Blood [[id number]] (Normal) Collected: 11/04/172102 Order Status: Completed Lab Status: Preliminary result Updated: 11/05/17910 Specimen: Blood from Line Culture No growth: Monitored continually by instrument for 5 days Culture, Blood [[id number]] (Normal) Collected: 11/03/17 1506 Order Status: Completed Lab Status: Preliminary result Updated: 11/04/17 0311 Specimen: Blood from Peripheral Blood Culture No growth: Monitored continually by instrument for 5 days Radiology results No results found. Vitals Ranges: Temp: [36.2 C (97.2 F)-36.9 C (98.4 F)] 36.8 C (98.2 F) Pulse: [70-89] 71 Resp: [16-19] 18 BP: (152-189)/(72-96) 182/85 Vitals: Temp: 36.8 C (98.2 F) BP: 182/85 Pulse: 71 Resp: 18 SpO2: 98 % SpO2 98 % on nasal cannula at flow rate 2L/min Subjective Patient feels well today. Receiving dialysis. Plan for line holiday with removal after dial ysis. Exam Gen Get - alert, cooperative Head - Normocephalic Eyes - PERRL, conjunctiva/corneas clear ENT - mucous membranes moist Neck - supple Lungs - CTA throughout Heart - normal rate, rhythm w/o m/r/g Abdomen - non-tender non-distended Extremities - no peripheral edema, no clubbing or cyanosis Skin - No rashes Neurologic - Alert and oriented x 3. Assessment and Hospital Course Sepsis 2/2 to likely UTI +/- CAP Plan Sepsis / to likely UTI +/- CAP procal negative. Flu swab negative. Patient started having fevers on 11/02. CXR with mild sc arring at lung apices. CT thorax 11/03 shows multifocal pneumonia. -CT abdomen 11/02 showed ex tensive ground glass opacities within posterior LLL concerning for PNA. Blood culture 11/02 Strep Bovis. UA (+), urine culture E coli. Bld culture 11/03 10/17 staph epi. TTE 11/05 EF 60 -65%, no vegetation/endocarditis seen. -Continueceftriaxone started 11/02, azithromycin 11/03, changed to levofloxacin 11/04, plan for 14 day treatment -Repeat blood cultures ordered today -Will need outpatient colonoscopy due to Colon cancer risk due to strep bovis -Plan for line holiday, will need to evaluate for permacath on Wednesday if cultures remain cl ear from 11/06 blood culture taken, will need to contact nephrology then to determine if lee ent will continue dialysis Hypoglycemia and hypothermia--likely due to continued insulin use despite poor PO intake an d in setting of active infection Joe michaud was initially on, but temp normalized. CXR at OSH negative. TSH WNL. Trops ne gative. D10 has been held on 11/03. -Holding lantus 20 units qhs -Cont ISS, appears controlled -Resolved CKD IV/V Muhurker placed on 11/03 for initiation of dialysis, removed 11/06 -Cont lasix 80mg BID -Appreciate nephrology recs, will have line removed today, will contact on Wednesday to determ ine if permacath needed for intermodal customer service dialysis CAD no signs of ACS, EKG RBBB, trop 0.03 at OSH -Continue aspirin, lipitor Hypothyroidism TSH WNL Continue levothyroxine HTN uncontrolled -Labetalol restarted -Holding losartan PPX: HSQ FEN: renal Current Facility-Administered Medications: acetaminophen 650 mg Oral Q4H PRN albumin 12.5 g Intravenous PRN albuterol 5 mg Nebulization RT Q4H PRN atorvaSTATin 20 mg Oral Nightly bisacodyl 10 mg Rectal Daily PRN calcium-vitamin D 1 tablet Oral BID dextrose 12.5 g Intravenous PRN docusate sodium 100 mg Oral BID docusate sodium 100 mg Oral BID PRN DULoxetine 30 mg Oral Daily epoetin karthik 10,000 Units Subcutaneous Once per day on Wed ferric gluconate 125 mg Intravenous Daily furosemide 80 mg Oral BID (8 and 16) gabapentin 100 mg Oral Daily at Noon gabapentin 200 mg Oral BID heparin 1,500-6,000 Units Intercatheter PRN heparin 500 Units Intravenous With each dialysis Heparin Infusion 200 Units/hr Intravenous Continuous HYDROcodone-acetaminophen 1-2 tablet Oral Q4H PRN insulin lispro 0-12 Units Subcutaneous 4x Daily WC and HS insulin lispro 0-6 Units Subcutaneous Q2H PRN labetalol 100 mg Oral BID levoFLOXacin 750 mg Oral Every Other Day levothyroxine 75 mcg Oral QAM AC lidocaine 1 patch Transdermal Daily PRN olopatadine 1 drop Both Eyes BID ondansetron 4 mg Intravenous Q6H PRN pantoprazole 40 mg Oral QAM AC polyethylene glycol 17 g Oral BID polyethylene glycol 17 g Oral Daily PRN senna 8.6 mg Oral BID PRN Olegario Peng 11/06/2017 14:15 [facility] Darlin Palmer M D - 11/06/2017 9:[address] [facility] NEPHROLOGY progress note Patient: Ara Tilley : 1945 Hospital Day # 5 ASSESMENT AND PLAN 1. End-stage renal disease, due to diabetic kidney disease. Pt initiate hemodialysis on 11/03/17 via a temporary R IJ catheter. Pt received hemodialysis on 11/03 and 11/04. Labs are stable today. Clinically, pt appears stable. Dialysis today x 4 hrs. Will d/c temporary line after dialysis today. Plan for tunneled dialysis catheter on Wednesday. 2. Hypertension. On oral furosemide. Good UOP. Will add back labetalol 100 mg BID. 3. Streptococcus infantarius ssp coli (S bovis) bacteremia (2/4 bottles on ). Unclear source. Urine culture grew E coli. Repeat blood culture on 11/03 positive for Stap h epidermidis. Group D strep is associated with liver disease or colon disease. Pt will need a colonoscopy as an outpatient to evaluate for colon disease (neoplasm). On levofloxacin. Echo ordered by hospitalist. 4. E coli UTI. On levofloxacin. 5. Anemia due to CKD. On ferrlecit and Epogen. 24 HR EVENTS Blood cultures from 11/04 NGTD SUBJECTIVE Pt is dialyzing this morning. Pt denies shortness of breath, chest pain. CURRENT MEDICATIONS Scheduled Meds: atorvaSTATin 20 mg Oral Nightly calcium-vitamin D 1 tablet Oral BID docusate sodium 100 mg Oral BID DULoxetine 30 mg Oral Daily epoetin karthik 10,000 Units Subcutaneous Once per day on Wed ferric gluconate 125 mg Intravenous Daily furosemide 80 mg Oral BID (8 and 16) gabapentin 100 mg Oral Daily at Noon gabapentin 200 mg Oral BID heparin 500 Units Intravenous With each dialysis insulin lispro 0-12 Units Subcutaneous 4x Daily WC and HS labetalol 100 mg Oral BID levoFLOXacin 750 mg Oral Every Other Day levothyroxine 75 mcg Oral QAM AC olopatadine 1 drop Both Eyes BID pantoprazole 40 mg Oral QAM AC polyethylene glycol 17 g Oral BID Continuous Infusions: Heparin Infusion 200 Units/hr (11/06/17 9547) PRN Meds:acetaminophen, albumin, albuterol, bisacodyl, Hypoglycemia Management AND POC T Glucose AND dextrose, docusate sodium, heparin, HYDROcodone-acetaminophen, insulin lis pro, lidocaine, ondansetron, polyethylene glycol, senna OBJECTIVE VITAL SIGNS: Vital sign ranges for last 24hrs: Input and output for last 24hrs: Temp: [36.2 C (97.2 F)-36.8 C (98.2 F)] 36.6 C (97.9 F) Pulse: [71-88] 83 Resp: [14-18] 16 BP: (152-184)/(72-84) 177/83 SpO2 Av.1 % Min: 91 % Max: 98 % Flow (L/min) Av Min: 2 Max: 2 11/05 0701 - 11/06 0700 In: 540 [P.O.:540] Out: 1375 [Urine:1375] General: In no acute distress Cardiac: Regular rate and rhythm, normal S1 and S2. Trace lower peripheral edema. Chest: Normal respiratory effort. Clear anteriorly. Abdomen: Soft, non-distended, non-tender, normal bowel sounds. Skin: No rash. Neuro: Alert, interactive. Psych: Normal affect. Normal speech. Access: R IJ catheter accessed for dialysis. LABORATORY DATA: Recent Labs Lab 11/06/17 0642 11/05/17 0612 11/04/17 0419 WBC 9.9 14.0* 13.9* HGB 9.0* 8.3* 7.9* HCT 26.5* 24.9* 24.1* PLT Adequate | 176 154 127* Recent Labs Lab 11/06/17 0642 11/05/17 0612 11/04/17 0419 11/03/17 0502 11/02/17 0741 11/02/17 0019 NA 139 135* 135* 135* 137 136 K 3.9 4.4 3.9 4.5 4.3 4.3 CL 105 101 102 102 104 104 CO2 28 28 27 23* 23* 23* BUN 30* 28* 43* 56* 53* 56* CREA 2.40* 1.88* 2.38* 3.65* 3.54* 3.76* MG 1.8 1.9 1.9 2.0 2.2 2.3 CALCIUM 8.7 8.2* 8.1* 8.2* 8.7 8.5 PHOS 2.4* 2.3* 2.9 4.7* 4.8* -- Diagnostic Studies: Available data and images were reviewed personally. Significant results and findings are ad dressed here or in the Assessment and Plan. Darlin Moseley MD Electronically signed: 11/06/2017 9:11 [facility] NEPHROLOGY Olegario Keen M D - 11/05/2017 2:08 PM PST [facility] PROGRESS NOTE Patient: Ara Tilley : 1945: Age: 72 y.o. MedRec: [id number] Admission date: 11/01/2017 Hospital day # : 4 Physician author: Olegario Peng MD Today: 11/05/2017 Allergies: Allergies Allergen Reactions Levofloxacin Lisinopril Pt [...] (TYLENOL) tablet 650 mg 650 mg Oral Q4H PRN Rupal Laguna MD albuterol 2.5 mg/3 mL nebulizer solution 5 mg 5 mg Nebulization RT Q4H PRN Anibal arcos MD amLODIPine (NORVASC) tablet 2.5 mg 2.5 mg Oral Daily Gopi Muñoz, DO 2.5 mg a t 11/05/17 0809 atorvaSTATin (LIPITOR) tablet 20 mg 20 mg Oral Nightly Rupal Laguna MD 20 mg at 2245 bisacodyl (DULCOLAX) suppository 10 mg 10 mg Rectal Daily PRN Rupal Laguna MD calcium-vitamin D (OSCAL) 500 mg-200 units per tablet 1 tablet 1 tablet Oral BID Abbie Laguna MD 1 tablet at 11/05/17 0809 dextrose 50% injection 12.5 g 12.5 g Intravenous PRN Haris Segal MD docusate sodium (COLACE) capsule 100 mg 100 mg Oral BID Olegario Peng MD 100 mg a t 11/05/17 0809 docusate sodium (COLACE) capsule 100 mg 100 mg Oral BID PRN Rupal Laguna MD DULoxetine (CYMBALTA) DR capsule 30 mg 30 mg Oral Daily Rupal Laguna MD 30 mg at 0 11/05/17 0808 epoetin karthik (EPOGEN, PROCRIT) 10,000 units/mL injection 10,000 Units 10,000 Units Sub cutaneous Once per day on Wed Gopi Muñoz, DO 10,000 Units at 11/05/17 1015 ferric gluconate (FERRLECIT) 125 mg in sodium chloride 0.9% 100 mL IVPB 125 mg Intrave nous Daily Gopi Muñoz DO 110 mL/hr at 11/05/17 1015 125 mg at 11/05/17 1015 furosemide (LASIX) injection 80 mg 80 mg Intravenous Daily Olegario Peng MD 80 mg at 11/05/17 0810 gabapentin (NEURONTIN) capsule 100 mg 100 mg Oral Daily at Noon Rupal Laguna MD 10 0 mg at 11/05/17 1217 gabapentin (NEURONTIN) capsule 200 mg 200 mg Oral BID Rupal Laguna MD 200 mg at 0809 heparin 1,000 units/mL injection 1,500-6,000 Units 1,500-6,000 Units Intercatheter PRN Gopi Muñoz DO 2,800 Units at 11/04/17 2133 HYDROcodone-acetaminophen (NORCO) 5-325 mg per tablet 1-2 tablet 1-2 tablet Oral Q4H P RN Rupal Laguna MD 2 tablet at 11/05/17 0134 insulin lispro (humaLOG KWIKPEN) 100 units/mL injection (pen) 0-12 Units 0-12 Units Weller bcutaneous 4x Daily WC and HS Anibal Malik MD 2 Units at 11/04/17 1709 insulin lispro (humaLOG KWIKPEN) 100 units/mL injection (pen) 0-6 Units 0-6 Units Subc utaneous Q2H PRN Haris Segal MD levoFLOXacin (LEVAQUIN) tablet 750 mg 750 mg Oral Every Other Day Olegario Peng MD 750 mg at 11/04/17 1549 levothyroxine (SYNTHROID) tablet 75 mcg 75 mcg Oral QAM AC uRpal Laguna MD 75 mcg at 11/05/17 0637 lidocaine (LIDODERM) 5% patch 1 patch 1 patch Transdermal Daily PRN Rupal Laguna MD olopatadine (PATANOL) 0.1% ophthalmic solution 1 drop 1 drop Both Eyes BID Rupal lomas MD 1 drop at 11/05/17 1016 ondansetron (ZOFRAN) injection 4 mg 4 mg Intravenous Q6H PRN Rupal Laguna MD 4 mg at 11/05/17 0133 pantoprazole (PROTONIX) DR tablet 40 mg 40 mg Oral QAM AC Rupal Laguna MD 40 mg at 11/05/17 0637 polyethylene glycol (MIRALAX) powder 17 g 17 g Oral BID Olegario Peng MD 17 g at 11/05/17 0809 polyethylene glycol (MIRALAX) powder 17 g 17 g Oral Daily PRN Rupal Laguna MD senna (SENOKOT) tablet 8.6 mg 8.6 mg Oral BID PRN Rupal Laguna MD Current Infusions: Objective Data Point of care glucose Recent Labs Lab 11/05/17 1152 11/05/17 0639 11/04/17 2249 11/04/17 1647 11/04/17 1134 11/04/17 0132 POCGLU 151* 129* 199* 178* 185* 207* Labs last 24 hours Recent Results (from the past 24 hour(s)) POC Glucose Collection Time: 11/04/17 16:47 Result Value Ref Range Glucose, POC 178 (H) 70 - 109 mg/dL Culture, Blood Collection Time: 11/04/17 21:03 Result Value Ref Range Culture No growth: Monitored continually by instrument for 5 days Culture, Blood Collection Time: 11/04/17 21:22 Result Value Ref Range Culture No growth: Monitored continually by instrument for 5 days POC Glucose Collection Time: 11/04/17 22:49 Result Value Ref Range Glucose, POC 199 (H) 70 - 109 mg/dL Basic Metabolic Panel Collection Time: 11/05/17 6:12 Result Value Ref Range NA 135 (L) 136 - 149 mmol/L K 4.4 3.5 - 5.1 mmol/L CL 101 98 - 109 mmol/L CO2 28 24 - 31 mmol/L ANION GAP 6 3 - 16 mmol/L GLUCOSE 130 (H) 70 - 109 mg/dL BUN 28 (H) 7 - 18 mg/dL Creatinine, Serum/Plasma 1.88 (H) 0.60 - 1.30 mg/dL eGFR if not 26 (L) >=60 mL/min/1.73m2 CALCIUM 8.2 (L) 8.3 - 10.5 mg/dL BUN/CREA 14.9 CBC with Differential Collection Time: 11/05/17 6:12 Result Value Ref Range WBC 14.0 (H) 4.0 - 11.0 K/uL RBC 2.77 (L) 3.70 - 5.20 M/uL Hgb 8.3 (L) 11.5 - 16.0 g/dL Hct 24.9 (L) 34.0 - 47.0 % MCV 89.9 83.0 - 101.0 fL MCH 29.8 28.0 - 35.0 pg MCHC 33.1 32.0 - 36.0 g/dL RDW-CV 14.1 <15.0 % Platelet Count 154 140 - 440 K/uL MPV 9.6 fL % Neutrophils 86.6 (H) 45.0 - 82.0 % % Lymphocytes 9.7 (L) 20.0 - 45.0 % % Monocytes 2.4 (L) 4.0 - 12.0 % % Eosinophils 0.9 0.0 - 5.0 % % Basophils 0.4 0.0 - 1.0 % Absolute Neutrophils 12.10 (H) 1.80 - 8.50 K/uL Absolute Lymphocytes 1.40 0.60 - 3.20 K/uL Absolute Monocytes 0.30 0.00 - 1.00 K/uL Absolute Eosinophils 0.10 0.00 - 0.40 K/uL Absolute Basophils 0.10 0.00 - 0.10 K/uL Magnesium Collection Time: 11/05/17 6:12 Result Value Ref Range MG 1.9 1.8 - 2.5 mg/dL Phosphorus Collection Time: 11/05/17 6:12 Result Value Ref Range PHOSPHORUS 2.3 (L) 2.5 - 4.6 mg/dL POC Glucose Collection Time: 11/05/17 6:39 Result Value Ref Range Glucose, POC 129 (H) 70 - 109 mg/dL POC Glucose Collection Time: 11/05/17 11:52 Result Value Ref Range Glucose, POC 151 (H) 70 - 109 mg/dL Micro results Microbiology Results (72 hrs) Procedure Component Value Units Date/Time Culture, Blood [[id number]] (Normal) Collected: 11/04/172121 Order Status: Completed Lab Status: Preliminary result Updated: 11/05/17 0931 Specimen: Blood from Line Culture No growth: Monitored continually by instrument for 5 days Culture, Blood [[id number]] (Normal) Collected: 11/04/172102 Order Status: Completed Lab Status: Preliminary result Updated: 11/05/17 09 Specimen: Blood from Line Culture No growth: Monitored continually by instrument for 5 days Culture, Blood [[id number]] (Normal) Collected: 11/03/17 1506 Order Status: Completed Lab Status: Preliminary result Updated: 11/04/17 0311 Specimen: Blood from Peripheral Blood Culture No growth: Monitored continually by instrument for 5 days Culture, Blood [[id number]] (Abnormal) Collected: 11/03/17 0812 Order Status: Completed Lab Status: Preliminary result Updated: 11/05/17 0751 Specimen: Blood from Arm, Left Culture Positive Blood Culture (AA) Staphylococcus coagulase negative Comment: Identification and susceptibility to follow. Probable contaminant Gram Stain Result Gram positive cocci in clusters Comment: 2 of 4 bottles positive Culture, Respiratory, Lower, Smear [[id number]] Collected: 11/03/17 0727 Order Status: Completed Lab Status: Final result Updated: 11/05/17 1154 Specimen: Respiratory from Sputum, expectorated Culture 3+ Usual Respiratory Emeli 2+ Maribeth albicans Gram Stain Result 3+ White Blood Cells 2+ Epithelial cells 2+ Gram positive cocci 2+ Gram positive bacilli 1+ Hyphael elements Radiology results Xr Chest Ap Portable Result Date: 11/03/2017 XR CHEST AP PORTABLE 11/03/2017 3:20 PM HISTORY: line placement.. COMPARISON: 11/03/2017 Find ings: Prominent consolidation is reidentified involving the central mid and lower lung zones bilaterally. Right internal jugular approach central catheter tip terminates in the mid rig ht atrium. No evidence of pneumothorax or pleural effusion. Aortic calcifications are seen. Bones and soft tissues are unchanged. IMPRESSION - Prominent consolidation is reidentified i nvolving the central mid and lower lung zones bilaterally. Right internal jugular approach c entral catheter tip terminates in the mid right atrium. Dictated and Signed by: Itz alvares MD Electronically signed: 11/03/2017 4:25 PM Vitals Ranges: Temp: [36.4 C (97.5 F)-37.6 C (99.7 F)] 36.4 C (97.5 F) Pulse: [60-83] 73 Resp: [14-18] 14 BP: (119-183)/(65-85) 160/76 Vitals: Temp: 36.4 C (97.5 F) BP: 160/76 Pulse: 73 Resp: 14 SpO2: 94 % SpO2 94 % on room air at flow rate 2L/min Subjective Patient feels well today. No current complaints. Exam Gen Get - alert, cooperative Head - Normocephalic Eyes - PERRL, conjunctiva/corneas clear ENT - mucous membranes moist Neck - supple Lungs - + rhonchi Heart - normal rate, rhythm w/o m/r/g. R temp cath placed Abdomen - non-tender non-distended Extremities - no peripheral edema, no clubbing or cyanosis Skin - No rashes Neurologic - Alert and oriented x 3. Assessment and Hospital Course Hypoglycemia and hypothermia Plan Hypoglycemia and hypothermia--likely due to continued insulin use despite poor PO intake an d in setting of active infection Bear hugger was initially on, but temp normalized. CXR at OSH negative. TSH WNL. Trops ne gative. D10 has been held on 11/03. -Holding lantus 20 units qhs -Cont ISS, appears controlled Sepsis 10/15 to likely UTI +/- CAP procal negative. Flu swab negative. Patient started having fevers on 11/02. CXR with mild sc arring at lung apices. CT thorax 11/03 shows multifocal pneumonia. -CT abdomen 11/02 showed ex tensive ground glass opacities within posterior LLL concerning for PNA. Blood culture 11/02 1 / Strep Bovis. UA (+), urine culture E coli -Continue ceftriaxone started 11/02, azithromycin 11/03, changed to levofloxacin 11/04, plan f or 14 day treatment -Blood cultures 11/03 NGTD, if clear tomorrow will call surgery for permacath placement -WBC 10.7->13.9->14 -Ordered TTE given Strep Bovis risk of Endocarditis -Will need outpatient colonoscopy due to Colon cancer risk CKD IV/V Mina placed on 11/03 for initiation of dialysis -On lasix -Appreciate nephrology recs -If blood cultures still clear tomorrow, will need permacath placed CAD no signs of ACS, EKG RBBB, trop 0.03 at OSH -On tele -Continue aspirin, lipitor. Hypothyroidism TSH WNL Continue levothyroxine HTN -Held losartan, labetalol PPX: HSQ FEN: renal Current Facility-Administered Medications: acetaminophen 650 mg Oral Q4H PRN albuterol 5 mg Nebulization RT Q4H PRN amLODIPine 2.5 mg Oral Daily atorvaSTATin 20 mg Oral Nightly bisacodyl 10 mg Rectal Daily PRN calcium-vitamin D 1 tablet Oral BID dextrose 12.5 g Intravenous PRN docusate sodium 100 mg Oral BID docusate sodium 100 mg Oral BID PRN DULoxetine 30 mg Oral Daily epoetin karthik 10,000 Units Subcutaneous Once per day on Wed ferric gluconate 125 mg Intravenous Daily furosemide 80 mg Intravenous Daily gabapentin 100 mg Oral Daily at Noon gabapentin 200 mg Oral BID heparin 1,500-6,000 Units Intercatheter PRN HYDROcodone-acetaminophen 1-2 tablet Oral Q4H PRN insulin lispro 0-12 Units Subcutaneous 4x Daily WC and HS insulin lispro 0-6 Units Subcutaneous Q2H PRN levoFLOXacin 750 mg Oral Every Other Day levothyroxine 75 mcg Oral QAM AC lidocaine 1 patch Transdermal Daily PRN olopatadine 1 drop Both Eyes BID ondansetron 4 mg Intravenous Q6H PRN pantoprazole 40 mg Oral QAM AC polyethylene glycol 17 g Oral BID polyethylene glycol 17 g Oral Daily PRN senna 8.6 mg Oral BID PRN Olegario Peng 11/05/2017 14:08 [facility] Darlin Palmer M D - 11/05/2017 1:[address] [facility] NEPHROLOGY progress note Patient: Ara Tilley : 1945 Hospital Day # 4 ASSESMENT AND PLAN 1. End-stage renal disease, due to diabetic kidney disease. Pt initiate hemodialysis on 11/03/17 via a temporary R IJ catheter. Pt received hemodialysis on 11/03 and 11/04. Labs are stable today. Clinically, pt appears stable. Plan for HD tomorrow (Wednesday). Awaiting result of repeat blood cultures, drawn on 11/04/17, before placing a tunneled dialy sis catheter. 2. Hypertension. On amlodipine 2.5 mg QDAY. Will switch furosemide IV to PO. If SBP >140, recommend adding back losartan 25 mg daily. 3. Streptococcus infantarius ssp coli (S bovis) bacteremia (2/4 bottles). Unclear source. Urine culture grew E coli. Group D strep is associated with liver disease or colon disease. Pt will need a colonoscopy as an outpatient to evaluate for colon disease (neoplasm). On levofloxacin. If persistently bacteremia, may need repeat echo to rule out endocarditis. 4. E coli UTI. On levofloxacin. 5. Anemia due to CKD. On ferrlecit and Epogen. 24 HR EVENTS HD x 6 hrs on 11/04/17, UF 1 Liter SUBJECTIVE Pt reports feeling tired. No chest pain, shortness of breath, abdominal pain. CURRENT MEDICATIONS Scheduled Meds: amLODIPine 2.5 mg Oral Daily atorvaSTATin 20 mg Oral Nightly calcium-vitamin D 1 tablet Oral BID docusate sodium 100 mg Oral BID DULoxetine 30 mg Oral Daily epoetin karthik 10,000 Units Subcutaneous Once per day on Wed ferric gluconate 125 mg Intravenous Daily furosemide 80 mg Intravenous Daily gabapentin 100 mg Oral Daily at Noon gabapentin 200 mg Oral BID insulin lispro 0-12 Units Subcutaneous 4x Daily WC and HS levoFLOXacin 750 mg Oral Every Other Day levothyroxine 75 mcg Oral QAM AC olopatadine 1 drop Both Eyes BID pantoprazole 40 mg Oral QAM AC polyethylene glycol 17 g Oral BID Continuous Infusions: PRN Meds:acetaminophen, albuterol, bisacodyl, Hypoglycemia Management AND POCT Glucose AND dextrose, docusate sodium, heparin, HYDROcodone-acetaminophen, insulin lispro, lido veronica, ondansetron, polyethylene glycol, senna OBJECTIVE VITAL SIGNS: Vital sign ranges for last 24hrs: Input and output for last 24hrs: Temp: [36.4 C (97.5 F)-37.6 C (99.7 F)] 36.4 C (97.5 F) Pulse: [60-83] 73 Resp: [14-18] 14 BP: (119-183)/(65-85) 160/76 SpO2 Av.8 % Min: 90 % Max: 96 % Flow (L/min) Av.3 Min: 1 Max: 2 11/04 0701 - 11/05 0700 In: 1116.3 [P.O.:1060; I.V.:56.3] Out: 2485 [Urine:1400] General: In no acute distress Cardiac: Regular rate and rhythm, normal S1 and S2. Trace to 1+ pitting lower peripheral edema. Chest: Normal respiratory effort. Mid-lung crackles bilaterally. Abdomen: Soft, non-distended, non-tender, normal bowel sounds. Skin: No rash. Neuro: Alert, interactive. Psych: Normal affect. Normal speech. Access: R IJ catheter in place. Dressing is clean. LABORATORY DATA: Recent Labs Lab 11/05/17 0612 11/04/17 0419 11/03/17 0502 WBC 14.0* 13.9* 10.7 HGB 8.3* 7.9* 9.0* HCT 24.9* 24.1* 27.0* PLT 154 127* 142 Recent Labs Lab 11/05/17 0612 11/04/17 0419 11/03/17 0502 11/02/17 0741 11/02/17 0019 NA 135* 135* 135* 137 136 K 4.4 3.9 4.5 4.3 4.3 CL 101 102 102 104 104 CO2 28 27 23* 23* 23* BUN 28* 43* 56* 53* 56* CREA 1.88* 2.38* 3.65* 3.54* 3.76* MG 1.9 1.9 2.0 2.2 2.3 CALCIUM 8.2* 8.1* 8.2* 8.7 8.5 PHOS 2.3* 2.9 4.7* 4.8* -- Diagnostic Studies: Available data and images were reviewed personally. Significant results and findings are ad dressed here or in the Assessment and Plan. Darlin Moseley MD Electronically signed: 11/05/2017 13:53 [facility] NEPHROLOGY tGopi rick , DO - 11/04/2017 6:53 PM PST [facility] [address] [place] [address] PROGRESS NOTE Pt. Name/Age/: Ara Tilley 72 y.o. 1945 Med. Record Number: [id number] Date of admission: 11/01/2017 NEPHROLOGY HPI - (Pt seen at 1100). Had nocturnal HD last PM, finished 0500, tolerated. well. She i s more hopeful today. Still intermittently c/o back pain. Apparently, 1/4 blood cx from 11/03/17 growing GPC in clusters. Apparently, 2/4 Blood Cxs from 11/02/17 are growing pansensitive Streptococcus infantarius ssp. coli (S.bovis) . Pt will need to be free of bacteremia before the tunneled IJ cath. can be converted.* Lab Results Component Value Date POCGLU 178 (H) 11/04/2017 POCGLU 185 (H) 11/04/2017 POCGLU 207 (H) 11/04/2017 POCGLU 271 (H) 11/03/2017 EXAM: BP 146/65 | Pulse 62 | Temp 36.4 C (97.6 F) (Oral) | Resp 15 | Ht 1.727 m (5' 8") | Wt 90.6 kg (199 lb 11.8 oz) | SpO2 93% | BMI 30.37 kg/m Tmax 36.4 (Wt. i ncreased 3.2 kg) Intake/Output Summary (Last 24 hours) at 11/04/173 Last data filed at 11/04/17 1830 Gross per 24 hour Intake 700 ml Output 2442 ml Net -1742 ml Heart: Regular rate and rhythm with no S3, S4, murmur or rub. Lungs: CTA with improved air movement. Abdomen: Soft, flat, nontender, normoactive bowel sounds, mild CVA tenderness, bilaterall y. Extremities: 1+ edema, clubbing, or cyanosis, SpO2: 93 % on 1liters/minute nasal cannula LAB: Recent Labs 11/04/17 0419 NA 135* K 3.9 CL 102 CO2 27 BUN 43* CREA 2.38* GFRNONAA 20* GLU 143* CALCIUM 8.1* PHOS 2.9 MG 1.9 Recent Labs 11/04/17 0419 WBC 13.9* HGB 7.9* HCT 24.1* PLT 127* MCV 90.1 NEUPCT 85.9* LYMPCT 10.2* MONPCT 2.2* EOSPCT 1.4 Lab Results Component Value Date CRP 253.22 (H) 11/04/2017 IMPRESSION 1. 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 Will do HD x 6 hrs, tonite du e to high Inpt case load here at [facility]. 2. probable pyelonephritis?--Day #3 Ceftriaxone, Day #2 Azithromycin. 3. bronchopneumonia with possible background COPD-- doubt the strep. is form pneumonia, b ut is Sensitive to Azithromycin. She did have and Echo. on 10/02/17 which did not describe any vegetations. 4. Anemia 2 to CKD-- will begin some EPO, to target her Hb 10-11 g/dl. This will likely give her more energy. 5. Type 2 DM-- BG improving as her appetite is improving. 6. protein-calorie malnutrition-- would favor using a general diet, with a fluid restricti on for now until she is better nourished? PLAN 1. May need imaging of L-spine or colonoscopy, as source of bacteria not clear? Seem unus ual organism for bronchopneumonia? 2. However, she does appear improved overall. 3. HD today x 6 Hrs, 4K+, UF 1kg. 4. Will recheck 2 sets of Blood Cxs tonite on HD for surveillance. 5. Will be Out of Office after 2100 tonite to 0700, 11/08/17. 6. Agree with IV Levofloxacin for coverage of both organisms, Q 48H. [facility] hase, Queenie Mcgraw RN - 11/04/2017 10:23 AM PSTPatient transferred from ICU into room 307. Oriented to room an d call light. Bed alarm set. Call light in place. Remains on 2L via nasal canula. Makes need s known. Amanda Keen MD - 11/04/2017 7:21 AM PSTFormatting of this note might be different from the origin al. [facility] HOSPITALIST PROGRESS NOTE Patient: Ara Tilley : 1945: Age: 72 y.o. MedRec: [id number] Admission date: 11/01/2017 Hospital day # : 3 Physician author: Olegario Peng MD Today: 11/04/2017 Allergies: Allergies Allergen Reactions Levofloxacin Lisinopril Pt [...] (TYLENOL) tablet 650 mg 650 mg Oral Q4H PRN Rupal Laguna MD albumin 25% IVPB 12.5 g 12.5 g Intravenous PRN Gopi Muñoz DO albuterol 2.5 mg/3 mL nebulizer solution 5 mg 5 mg Nebulization RT Q4H PRN Anibal arcos MD alteplase (CATHFLO ACTIVASE) injection 2 mg 2 mg Intercatheter PRN Gopi Muñoz DO amLODIPine (NORVASC) tablet 2.5 mg 2.5 mg Oral Daily Gopi Muñoz DO atorvaSTATin (LIPITOR) tablet 20 mg 20 mg Oral Nightly Rupal Laguna MD 20 mg at 2250 azithromycin (ZITHROMAX) 500 mg in sodium chloride 0.9% 250 mL IVPB 500 mg Intravenous Daily Olegario Peng MD 255 mL/hr at 11/03/17 1048 500 mg at 11/03/17 1048 bisacodyl (DULCOLAX) suppository 10 mg 10 mg Rectal Daily PRN Rupal Laguna MD calcium-vitamin D (OSCAL) 500 mg-200 units per tablet 1 tablet 1 tablet Oral BID Abbie Laguna MD 1 tablet at 11/03/17 2250 cefTRIAXone (ROCEPHIN) 2 g in sodium chloride 0.9% 50 mL IVPB 2 g Intravenous Daily An kayli Peng MD 100 mL/hr at 11/03/17 0920 2 g at 11/03/17 0920 dextrose 50% injection 12.5 g 12.5 g Intravenous PRN Haris Segal MD docusate sodium (COLACE) capsule 100 mg 100 mg Oral BID PRN Rupal Laguna MD DULoxetine (CYMBALTA) DR capsule 30 mg 30 mg Oral Daily Rupal Laguna MD 30 mg at 0 11/03/17 0926 epoetin karthik (EPOGEN, PROCRIT) 10,000 units/mL injection 10,000 Units 10,000 Units Sub cutaneous Once per day on Wed Gopi Muñoz DO 10,000 Units at 11/03/17 1340 ferric gluconate (FERRLECIT) 125 mg in sodium chloride 0.9% 100 mL IVPB 125 mg Intrave nous Daily Gopi Muñoz DO 110 mL/hr at 11/03/17 1335 125 mg at 11/03/17 1335 furosemide (LASIX) injection 80 mg 80 mg Intravenous Daily Olegario Peng MD 80 mg at 11/03/17 0922 gabapentin (NEURONTIN) capsule 100 mg 100 mg Oral Daily at Noon Rupal Laguna MD 10 0 mg at 11/03/17 1214 gabapentin (NEURONTIN) capsule 200 mg 200 mg Oral BID Rupal Laguna MD 200 mg at 2250 heparin 1,000 units/mL injection 1,500-6,000 Units 1,500-6,000 Units Intercatheter PRN Gopi Muñoz DO 2,800 Units at 11/04/17 0510 heparin in half-normal saline 50 units/mL infusion 500 Units/hr Intravenous Michelle Muñoz DO Stopped at 11/04/17 0430 HYDROcodone-acetaminophen (NORCO) 5-325 mg per tablet 1-2 tablet 1-2 tablet Oral Q4H P RN Rupal Laguna MD 2 tablet at 11/04/17 0630 insulin lispro (humaLOG KWIKPEN) 100 units/mL injection (pen) 0-12 Units 0-12 Units Weller bcutaneous 4x Daily WC and HS Anibal Malik MD 2 Units at 11/04/17 0134 insulin lispro (humaLOG KWIKPEN) 100 units/mL injection (pen) 0-6 Units 0-6 Units Subc utaneous Q2H PRN Haris Segal MD levothyroxine (SYNTHROID) tablet 75 mcg 75 mcg Oral QAM AC Rupal Laguna MD 75 mcg at 11/04/17 0630 lidocaine (LIDODERM) 5% patch 1 patch 1 patch Transdermal Daily PRN Rupal Laguna MD mannitol 25% injection 12.5 g 12.5 g Intravenous PRN Gopi Muñoz DO morphine injection 2-6 mg 2-6 mg Intravenous Q2H PRN Rupal Laguna MD 2 mg at 11/02 0924 olopatadine (PATANOL) 0.1% ophthalmic solution 1 drop 1 drop Both Eyes BID Rupal lomas MD 1 drop at 11/03/17 2254 ondansetron (ZOFRAN) injection 4 mg 4 mg Intravenous Q6H PRN Rupal Laguna MD 4 mg at 11/02/17 1935 pantoprazole (PROTONIX) DR tablet 40 mg 40 mg Oral QAM Rupal Laguna MD 40 mg at 11/04/17 0631 polyethylene glycol (MIRALAX) powder 17 g 17 g Oral Daily PRN Rupal Laguna MD senna (SENOKOT) tablet 8.6 mg 8.6 mg Oral BID PRN Rupal Laguna MD sodium chloride 0.9% (NS) infusion 250 mL 250 mL Intravenous Q30 Min PRN Gopi oconnell DO Current Infusions: Heparin Infusion Stopped (11/04/17 0430) Objective Data Point of care glucose Recent Labs Lab 11/04/17 0132 11/03/17 2029 11/03/17 1808 11/03/17 1623 11/03/17 1416 11/03/17 1226 POCGLU 207* 271* 295* 295* 282* 233* Labs last 24 hours Recent Results (from the past 24 hour(s)) Culture, Respiratory, Lower, Smear Collection Time: 11/03/17 7:27 Result Value Ref Range Gram Stain Result 3+ White Blood Cells Gram Stain Result 2+ Epithelial cells Gram Stain Result 2+ Gram positive cocci Gram Stain Result 2+ Gram positive bacilli Gram Stain Result 1+ Hyphael elements Culture, Blood Collection Time: 11/03/17 8:12 Result Value Ref Range Culture No growth: Monitored continually by instrument for 5 days POC Glucose Collection Time: 11/03/17 8:30 Result Value Ref Range Glucose, POC 187 (H) 70 - 109 mg/dL POC Glucose Collection Time: 11/03/17 10:45 Result Value Ref Range Glucose, POC 189 (H) 70 - 109 mg/dL POC Glucose Collection Time: 11/03/17 12:26 Result Value Ref Range Glucose, POC 233 (H) 70 - 109 mg/dL POC Glucose Collection Time: 11/03/17 14:16 Result Value Ref Range Glucose, POC 282 (H) 70 - 109 mg/dL Culture, Blood Collection Time: 11/03/17 15:06 Result Value Ref Range Culture No growth: Monitored continually by instrument for 5 days POC Glucose Collection Time: 11/03/17 16:23 Result Value Ref Range Glucose, POC 295 (H) 70 - 109 mg/dL POC Glucose Collection Time: 11/03/17 18:08 Result Value Ref Range Glucose, POC 295 (H) 70 - 109 mg/dL POC Glucose Collection Time: 11/03/17 20:29 Result Value Ref Range Glucose, POC 271 (H) 70 - 109 mg/dL POC Glucose Collection Time: 11/04/17 1:32 Result Value Ref Range Glucose, POC 207 (H) 70 - 109 mg/dL Basic Metabolic Panel Collection Time: 11/04/17 4:19 Result Value Ref Range NA 135 (L) 136 - 149 mmol/L K 3.9 3.5 - 5.1 mmol/L CL 102 98 - 109 mmol/L CO2 27 24 - 31 mmol/L ANION GAP 6 3 - 16 mmol/L GLUCOSE 143 (H) 70 - 109 mg/dL BUN 43 (H) 7 - 18 mg/dL Creatinine, Serum/Plasma 2.38 (H) 0.60 - 1.30 mg/dL eGFR if not 20 (L) >=60 mL/min/1.73m2 CALCIUM 8.1 (L) 8.3 - 10.5 mg/dL BUN/CREA 18.1 CBC with Differential Collection Time: 11/04/17 4:19 Result Value Ref Range WBC 13.9 (H) 4.0 - 11.0 K/uL RBC 2.67 (L) 3.70 - 5.20 M/uL Hgb 7.9 (L) 11.5 - 16.0 g/dL Hct 24.1 (L) 34.0 - 47.0 % MCV 90.1 83.0 - 101.0 fL MCH 29.5 28.0 - 35.0 pg MCHC 32.8 32.0 - 36.0 g/dL RDW-CV 14.3 <15.0 % Platelet Count 127 (L) 140 - 440 K/uL MPV 9.2 fL % Neutrophils 85.9 (H) 45.0 - 82.0 % % Lymphocytes 10.2 (L) 20.0 - 45.0 % % Monocytes 2.2 (L) 4.0 - 12.0 % % Eosinophils 1.4 0.0 - 5.0 % % Basophils 0.3 0.0 - 1.0 % Absolute Neutrophils 12.00 (H) 1.80 - 8.50 K/uL Absolute Lymphocytes 1.40 0.60 - 3.20 K/uL Absolute Monocytes 0.30 0.00 - 1.00 K/uL Absolute Eosinophils 0.20 0.00 - 0.40 K/uL Absolute Basophils 0.00 0.00 - 0.10 K/uL Magnesium Collection Time: 11/04/17 4:19 Result Value Ref Range MG 1.9 1.8 - 2.5 mg/dL Phosphorus Collection Time: 11/04/17 4:19 Result Value Ref Range PHOSPHORUS 2.9 2.5 - 4.6 mg/dL Micro results Microbiology Results (72 hrs) Procedure Component Value Units Date/Time Culture, Blood [[id number]] (Normal) Collected: 11/03/17 1506 Order Status: Completed Lab Status: Preliminary result Updated: 11/04/17 0311 Specimen: Blood from Peripheral Blood Culture No growth: Monitored continually by instrument for 5 days Culture, Blood [[id number]] (Normal) Collected: 11/03/17 0812 Order Status: Completed Lab Status: Preliminary result Updated: 11/03/17 204 Specimen: Blood from Arm, Left Culture No growth: Monitored continually by instrument for 5 days Culture, Respiratory, Lower, Smear [[id number]] Collected: 11/03/17 0727 Order Status: Completed Lab Status: Preliminary result Updated: 11/03/17 1028 Specimen: Respiratory from Sputum, expectorated Gram Stain Result 3+ White Blood Cells 2+ Epithelial cells 2+ Gram positive cocci 2+ Gram positive bacilli 1+ Hyphael elements Influenza A and B RNA, NAAT [[id number]] (Normal) Collected: 11/02/17 1050 Order Status: Completed Lab Status: Final result Updated: 11/02/17 1125 Specimen: Respiratory from Nares Influenza A PCR Negative Influenza B PCR Negative Culture, Urine [[id number]] Collected: 11/02/17 0740 Order Status: Completed Lab Status: Preliminary result Updated: 11/03/17 1013 Specimen: Urine Culture >100,000 CFU/ml Lactose Fermenting Gram Negative Bacilli Comment: Identification and susceptibility to follow. Culture, Blood [[id number]] (Normal) Collected: 11/02/17 0024 Order Status: Completed Lab Status: Preliminary result Updated: 11/02/17 1241 Specimen: Blood from Peripheral Blood Culture No growth: Monitored continually by instrument for 5 days Culture, Blood [[id number]] (Abnormal) Collected: 11/02/17 0019 Order Status: Completed Lab Status: Preliminary result Updated: 11/03/17 0831 Specimen: Blood from Peripheral Blood Culture Positive Blood Culture (AA) Alpha-hemolytic Streptococci Comment: Identification to follow. Gram Stain Result Gram positive cocci in chains Comment: One of four Blood Culture bottles POSITIVE. Critical Result called to and read b ack by Kristen Irving on 11/02/2017 at 15:14 by Edison Short. Narrative: Culture, MRSA [[id number]] Collected: 11/01/17 2146 Order Status: Completed Lab Status: Final result Updated: 11/03/17 0859 Specimen: Respiratory from Nares Culture Negative for MRSA by chromogenic agar method 1+ Coagulase positive Staphylococcus Radiology results Ct Abdomen Pelvis Wo Contrast Result Date: 11/02/2017 CT ABDOMEN PELVIS WO CONTRAST 11/02/2017 7:27 PM HISTORY: Eval for signs intra-abdominal inf ection. COMPARISON: 10/05/2017 and 12/06/2007 PROTOCOL: Axial images of the abdomen and pelvis were obtained. Coronal and sagittal reformations were acquired. FINDINGS: Extensive groundg lass consolidation is seen within the dependent portions of the posterior left lower lobe, c oncerning for pneumonia. Prominent mitral annular calcifications are present. There is a mod erate sized sliding type hiatal hernia. Mild bilateral dependent pleural thickening and subs egmental atelectasis. Normal noncontrast appearance of the liver, distended gallbladder, and the biliary and pancreatic ducts. Atrophic appearance of the pancreas. Normal noncontrast a ppearance of the spleen and right adrenal gland. There is mild nodular thickening of the lef t adrenal gland which is nonspecific. Mild bilateral perinephric fat stranding. No suspiciou s mass, hydronephrosis, or hydroureter. No renal calculi identified. Prominent areas seen wi thin the anterior bladder, possibly related to recent Al catheterization, please correlat e clinically. Uterus is surgically absent. Multiple noninflamed colonic diverticula are iden tified. Moderate volume of colonic stool retention. Mild diffuse truncal soft tissue swellin g/edema. Mild to moderate aortic atherosclerosis. Prominent calcification is seen at the alberto gin of bilateral renal arteries. No evidence of suspicious lymphadenopathy. No evidence of f ree fluid or free air. Cortically based focal sclerosis is seen along the anterior right sac rum and anterior aspect of the right femoral head. Multilevel degenerative changes of the th oracolumbar spine. Mild bilateral hip degenerative changes. IMPRESSION - 1. Extensive groun dglass consolidation is seen within the dependent portions of the posterior left lower lobe, concerning for pneumonia. 2. Prominent air is seen within the anterior bladder, possibly re lated to recent Al catheterization, please correlate clinically if there is concern for i nfection. 3. Otherwise, no other acute intra-abdominal abnormality identified. Dictated and Signed by: Itz Madsen MD Electronically signed: 11/02/2017 8:[address] Chest Wo Contrast Result Date: 11/03/2017 TECHNIQUE: Noncontrast axial CT imaging was obtained through the chest with coronal and sag ittal reformats. CLINICAL INFORMATION: Eval for PNA COMPARISON: CT chest dated 12/06/[address] 11/02/2017. Chest radiograph 11/02/2017. FINDINGS: BONES: No osteoblastic or o steolytic lesion. CHEST: Chest Wall: Normal. Mediastinum and aria: Mildly enlarged multiple mediastinal lymph nodes, the largest is precarinal and measures approximately 10 mm in short axis. Heart and pericardium: Heart size is normal. No pericardial effusion. Vessels: Promin ent coronary artery calcifications. Normal caliber of the thoracic aorta with mild vascular calcifications. Bulky calcifications are noted at the origin of the left subclavian artery . Lungs: Large right lower lobe superior segment airspace consolidation with additional smal ler consolidation involving the posterior inferior aspect of the right upper lobe. Minimal atelectasis at the right lower lobe. Large posterior left lower lobe airspace consolidation . Minimal scarring/atelectasis at the left upper lobe. No pleural effusion or pneumothorax . UPPER ABDOMEN: No focal abnormality. IMPRESSION - Airspace consolidation at the superior r ight lower lobe, posterior right upper lobe and posterior left lower lobe, most consistent w ith moderate multifocal pneumonia. Mildly enlarged mediastinal lymph nodes, likely reactive change. Probable significant stenosis at the proximal left subclavian artery. Prominent faizan nary artery calcifications. Dictated and Signed by: Akash Ashraf MD Electronically reed d: 11/03/2017 12:31 PM Xr Chest Ap Portable Result Date: 11/03/2017 XR CHEST AP PORTABLE 11/03/2017 3:20 PM HISTORY: line placement.. COMPARISON: 11/03/2017 Find ings: Prominent consolidation is reidentified involving the central mid and lower lung zones bilaterally. Right internal jugular approach central catheter tip terminates in the mid rig ht atrium. No evidence of pneumothorax or pleural effusion. Aortic calcifications are seen. Bones and soft tissues are unchanged. IMPRESSION - Prominent consolidation is reidentified i nvolving the central mid and lower lung zones bilaterally. Right internal jugular approach c entral catheter tip terminates in the mid right atrium. Dictated and Signed by: Itz alvares MD Electronically signed: 11/03/2017 4:25 PM Xr Chest Ap Portable Result Date: 11/02/2017 XR CHEST AP PORTABLE 11/02/2017 8:14 AM HISTORY: Eval for PNA. COMPARISON: Multiple priors. Findings: Heart size is within normal limits. There is atherosclerosis of the aorta. Mediast inum is unremarkable. Central pulmonary vasculature is normal. Mild scarring are in the lung apices. Overlapping pneumonitis cannot be excluded. Mild to moderate spondylosis is visuali zed. IMPRESSION - Mild scarring in lung apices. Overlapping pneumonitis cannot be excluded. Dictated and Signed by: Salvatore Nunez MD Electronically signed: 11/02/2017 11:56 AM Vitals Ranges: Temp: [35.5 C (95.9 F)-36.5 C (97.7 F)] 35.8 C (96.4 F) Pulse: [53-70] 53 Resp: [8-26] 10 BP: (92-142)/(40-71) 142/52 Vitals: Temp: 35.8 C (96.4 F) BP: 142/52 Pulse: 53 Resp: 10 SpO2: 94 % SpO2 94 % on nasal cannula at flow rate 2L/min Subjective Patient feels better today. Placed on ISS overnight. Exam Gen Get - alert, cooperative Head - Normocephalic Eyes - PERRL, conjunctiva/corneas clear ENT - Temp cath in place for dialysis Neck - supple Lungs - CTA throughout Heart - normal rate, rhythm w/o m/r/g Abdomen - non-tender non-distended Extremities - no peripheral edema, no clubbing or cyanosis Skin - No rashes Neurologic - Alert and oriented x 3 Assessment and Hospital Course Hypoglycemia and hypothermia Plan Hypoglycemia and hypothermia--likely due to continued insulin use despite poor PO intake an d in setting of active infection Bear hugger was initially on, but temp normalized. CXR at OSH negative. TSH WNL. Trops ne gative -Holding lantus 20 units qhs, patient has been placed on ISS, glucose level improved to 200 s, D10 held 11/03 -Nutrition spoke with patient, appreciate assistance Sepsis 10/15 to likely UTI +/- CAP procal negative. Flu swab negative. Patient started having fevers on 11/02. CXR with mild sc arring at lung apices. CT thorax 11/03 shows multifocal pneumonia. -CT abdomen 11/02 showed ex tensive ground glass opacities within posterior LLL concerning for PNA -Blood culture 11/02 1/4 Gram + cocci in chains -Repeat UA (+), urine culture >[id number] lactose fermenting -Continue ceftriaxone started 11/02, azithromycin 11/03 -Blood cultures 11/03 NGTD, will eval for clearance -White count increase in the setting of resolution of hypothermia, will closely monitor for need of abx adjustment, patient has been afebrile CKD IV/V Muhurker placed on 11/03 for initiation of dialysis -On lasix -[facility] nephrology recs CAD no signs of ACS, EKG RBBB, trop 0.03 at OSH -On tele -Continue aspirin, lipitor. Hypothyroidism TSH WNL Continue levothyroxine HTN -Held losartan, labetalol PPX: HSQ FEN: renal Current Facility-Administered Medications: acetaminophen 650 mg Oral Q4H PRN albumin 12.5 g Intravenous PRN albuterol 5 mg Nebulization RT Q4H PRN alteplase 2 mg Intercatheter PRN amLODIPine 2.5 mg Oral Daily atorvaSTATin 20 mg Oral Nightly azithromycin 500 mg Intravenous Daily bisacodyl 10 mg Rectal Daily PRN calcium-vitamin D 1 tablet Oral BID cefTRIAXone 2 g Intravenous Daily dextrose 12.5 g Intravenous PRN docusate sodium 100 mg Oral BID PRN DULoxetine 30 mg Oral Daily epoetin karthik 10,000 Units Subcutaneous Once per day on Wed ferric gluconate 125 mg Intravenous Daily furosemide 80 mg Intravenous Daily gabapentin 100 mg Oral Daily at Noon gabapentin 200 mg Oral BID heparin 1,500-6,000 Units Intercatheter PRN Heparin Infusion 500 Units/hr Intravenous Titrated HYDROcodone-acetaminophen 1-2 tablet Oral Q4H PRN insulin lispro 0-12 Units Subcutaneous 4x Daily WC and HS insulin lispro 0-6 Units Subcutaneous Q2H PRN levothyroxine 75 mcg Oral QAM AC lidocaine 1 patch Transdermal Daily PRN mannitol 12.5 g Intravenous PRN morphine 2-6 mg Intravenous Q2H PRN olopatadine 1 drop Both Eyes BID ondansetron 4 mg Intravenous Q6H PRN pantoprazole 40 mg Oral QAM AC polyethylene glycol 17 g Oral Daily PRN senna 8.6 mg Oral BID PRN sodium chloride 0.9% 250 mL Intravenous Q30 Min PRN Olegario Peng 11/04/2017 7:21 [facility] Nick Aguillon, RN - 0 11/04/2017 1:06 AM PSTDialysis treatment started and Arterial pressures running in the -400s , trouble shooting ineffective, arterial and venous lines switched, pressures now -50s. Shama cornell is running appropriately at this moment, will continue monitoring. Nick Guallpa tGopi rick, DO - 11/03/2017 11:20 AM PST [facility] [address] [place] [address] PROGRESS NOTE Pt. Name/Age/: Ara Tilley 72 y.o. 1945 Med. Record Number: [id number] Date of admission: 11/01/2017 NEPHROLOGY HPI - I had a long discussion with Mrs. Tilley about the risks, benefits , alternatives of outpt HD and CAPD. After lengthy discussion, she states that she does consent to an IJ Q uinton and initiation of HD, with hopes of transitioning to Oupt setting eventually, [place]. Her Mother was on CAPD, which has made her somewhat hesitant. Her appetite and energy are still marginal, but she is very pleasant. No hiccups. Note onl y 09/16 blood Cxs are (+) yest. and another set obtained today. Note that her urine Cx is growing > 10-5th GNR, to be ID'd. EXAM: BP 130/48 | Pulse 69 | Temp 36.5 C (97.7 F) (Oral) | Resp 15 | Ht 1.727 m (5' 8") | Wt 87.4 kg (192 lb 10.9 oz) | SpO2 94% | BMI 29.30 kg/m Tmax 36.5 (Wt. i ncreased .2 kg) Intake/Output Summary (Last 24 hours) at 11/03/17 1120 Last data filed at 11/03/17 1000 Gross per 24 hour Intake 1296 ml Output 1800 ml Net -504 ml Heart: Regular rate and rhythm with no S3, S4, murmur or rub. Lungs: expiratory rhonchi bilaterally, with few rales, < 1/4 both lower lobes. Abdomen: Soft, flat, nontender, normoactive bowel sounds, mild CVA tenderness, bilaterall y. Extremities: 1+ edema, clubbing, or cyanosis, SpO2: 96 % on 2liters/minute nasal cannula CXR: some hyperinflation, some reticular , IS infiltrate bilaterally, no effusion. LAB: Recent Labs 11/03/17 0502 NA 135* K 4.5 CL 102 CO2 23* BUN 56* CREA 3.65* GFRNONAA 12* GLU 173* CALCIUM 8.2* PHOS 4.7* MG 2.0 Recent Labs 11/03/17 0502 WBC 10.7 HGB 9.0* HCT 27.0* PLT 142 MCV 90.9 NEUPCT 88.6* LYMPCT 9.4* MONPCT 1.8* EOSPCT 0.0 IMPRESSION 1. 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 I think that her BUN wo uld actually be higher if she was better nourished. Regardless, her eGFR is very low. 2. probable pyelonephritis?--Day #2 Ceftriaxone, Day #1 Azithromycin. 3. probable bronchopneumonia with possible background COPD-- agree with AB's, inhaled BD's . 4. Anemia 2 to CKD-- will begin some EPO, to target her Hb 10-11 g/dl. This will likely give her more energy. 5. Type 2 DM--stable. 6. protein-calorie malnutrition-- would favor using a general diet, with a fluid restricti on for now until she is better nourished? PLAN 1. Dr. Quiros kindly agrees to place a temporary IJ [place] , so that pt can ambulate and begin some HD. Will plan on a tunneled cath. later. 2. Will do 4 Hr HD after that, minimal QB, eg. 200 ml/min, 4K+ bath. 3. Avelino begin some IV Fe and EPO. for her anemia. 4. Encourage ambulation to minimize atelectasis. [facility] Olegario Keen MD - 11/03/2017 7:07 AM PST [facility] [place] HOSPITALIST PROGRESS NOTE Patient: Ara Tilley : 1945: Age: 72 y.o. MedRec: [id number] Admission date: 11/01/2017 Hospital day # : 2 Physician author: Olegario Peng MD Today: 11/03/2017 Allergies: Allergies Allergen Reactions Levofloxacin Lisinopril Pt [...] (TYLENOL) tablet 650 mg 650 mg Oral Q4H PRN Rupal Laguna MD albuterol 2.5 mg/3 mL nebulizer solution 5 mg 5 mg Nebulization RT Q4H PRN Anibal arcos MD amLODIPine (NORVASC) tablet 10 mg 10 mg Oral Daily Rupal Laguna MD 10 mg at 0908 aspirin EC tablet 325 mg 325 mg Oral Daily Rupal Laguna MD 325 mg at 11/02/17 09 atorvaSTATin (LIPITOR) tablet 20 mg 20 mg Oral Nightly Rupal Laguna MD 20 mg at 2108 bisacodyl (DULCOLAX) suppository 10 mg 10 mg Rectal Daily PRN Rupal Laguna MD calcium carbonate (TUMS) chewable tablet 1,000 mg 1,000 mg Oral Q4H PRN Rupal Laguna MD calcium-vitamin D (OSCAL) 500 mg-200 units per tablet 1 tablet 1 tablet Oral BID Abbie Laguna MD 1 tablet at 11/02/172107 cefTRIAXone (ROCEPHIN) 2 g in sodium chloride 0.9% 50 mL IVPB 2 g Intravenous Daily An kayli Peng MD 100 mL/hr at 11/02/17 1623 2 g at 11/02/17 1623 dextrose 10% (D10W) 1,000 mL with sodium chloride 150 mEq infusion Intravenous Contin ublair Muñoz DO 50 mL/hr at 11/02/17 1047 dextrose 50% injection 12.5 g 12.5 g Intravenous PRN Haris Segal MD docusate sodium (COLACE) capsule 100 mg 100 mg Oral BID PRN Rupal Laguna MD DULoxetine (CYMBALTA) DR capsule 30 mg 30 mg Oral Daily Rupal Laguna MD 30 mg at 0 11/02/17 0908 furosemide (LASIX) injection 80 mg 80 mg Intravenous Daily Olegario Peng MD gabapentin (NEURONTIN) capsule 100 mg 100 mg Oral Daily at Noon Rupal Laguna MD gabapentin (NEURONTIN) capsule 200 mg 200 mg Oral BID Rupal Laguna MD 200 mg at 2108 HYDROcodone-acetaminophen (NORCO) 5-325 mg per tablet 1-2 tablet 1-2 tablet Oral Q4H P RN Rupal Laguna MD 2 tablet at 11/03/17 0407 insulin lispro (humaLOG KWIKPEN) 100 units/mL injection (pen) 0-6 Units 0-6 Units Subc utaneous Q2H PRN Haris Segal MD labetalol (NORMODYNE) tablet 200 mg 200 mg Oral BID Rupal Laguna MD Stopped at 222 levothyroxine (SYNTHROID) tablet 75 mcg 75 mcg Oral QAM AC Rupal Laguna MD 75 mcg at 11/03/17 0625 lidocaine (LIDODERM) 5% patch 1 patch 1 patch Transdermal Daily PRN Rupal Laguna MD morphine injection 2-6 mg 2-6 mg Intravenous Q2H PRN Rupal Laguna MD 2 mg at 11/02 0924 olopatadine (PATANOL) 0.1% ophthalmic solution 1 drop 1 drop Both Eyes BID Rupal lomas MD 1 drop at 11/02/17 210 ondansetron (ZOFRAN) injection 4 mg 4 mg Intravenous Q6H PRN Rupal Laguna MD 4 mg at 11/02/17 1935 pantoprazole (PROTONIX) DR tablet 40 mg 40 mg Oral QAM AC Rupal Laguna MD 40 mg at 11/03/17 0625 polyethylene glycol (MIRALAX) powder 17 g 17 g Oral Daily PRN Rupal Laguna MD senna (SENOKOT) tablet 8.6 mg 8.6 mg Oral BID PRN Rupal Laguna MD Current Infusions: custom IV fluid builder 50 mL/hr at 11/02/17 1047 Objective Data Point of care glucose Recent Labs Lab 11/03/17 0625 11/03/17 0409 11/03/17 0045 11/02/17 2217 11/02/17 1942 11/02/17 1814 POCGLU 172* 175* 189* 170* 167* 166* Labs last 24 hours Recent Results (from the past 24 hour(s)) Urinalysis with Microscopic with Culture if Indicated Collection Time: 11/02/17 7:40 Result Value Ref Range COLOR Yellow Light Yellow, Yellow, Straw CLARITY Hazy (A) Clear PH UA 6.0 5.0 - 8.0 Specific [place] 1.010 1.001 - 1.030 PROTEIN UA 100 mg/dL (A) Negative BLOOD UA Small (A) Negative GLUCOSE UA Negative Negative KETONES UA Negative Negative BILIRUBIN UA Negative Negative NITRITE UA Positive (A) Negative LEUKOCYTES ESTERASE UA Moderate (A) Negative UROBILINOGEN UA Negative 0.2 mg/dL, 1.0 mg/dL, Negative WBC UA 50-100 (A) 0 - 2 /HPF WBC CLUMPS UA Few (A) None Seen /HPF RBC UA 15-25 (A) 0 - 2 /HPF SQUAMOUS EPITHELIAL UA 5-10 (A) 0 - 2 /LPF BACTERIA UA 2+ (A) Negative /HPF MUCUS UA Present (A) Negative /LPF URINE COMMENT Urine Culture Set Up Basic Metabolic Panel Collection Time: 11/02/17 7:41 Result Value Ref Range NA 137 136 - 149 mmol/L K 4.3 3.5 - 5.1 mmol/L CL 104 98 - 109 mmol/L CO2 23 (L) 24 - 31 mmol/L ANION GAP 10 3 - 16 mmol/L GLUCOSE 79 70 - 109 mg/dL BUN 53 (H) 7 - 18 mg/dL Creatinine, Serum/Plasma 3.54 (H) 0.60 - 1.30 mg/dL eGFR if not 13 (L) >=60 mL/min/1.73m2 CALCIUM 8.7 8.3 - 10.5 mg/dL BUN/CREA 15.0 Magnesium Collection Time: 11/02/17 7:41 Result Value Ref Range MG 2.2 1.8 - 2.5 mg/dL Phosphorus Collection Time: 11/02/17 7:41 Result Value Ref Range PHOSPHORUS 4.8 (H) 2.5 - 4.6 mg/dL CBC with Differential Collection Time: 11/02/17 7:41 Result Value Ref Range WBC 8.8 4.0 - 11.0 K/uL RBC 3.04 (L) 3.70 - 5.20 M/uL Hgb 9.2 (L) 11.5 - 16.0 g/dL Hct 27.2 (L) 34.0 - 47.0 % MCV 89.4 83.0 - 101.0 fL MCH 30.4 28.0 - 35.0 pg MCHC 34.0 32.0 - 36.0 g/dL RDW-CV 14.3 <15.0 % Platelet Count 174 140 - 440 K/uL MPV 8.9 fL % Neutrophils 78.9 45.0 - 82.0 % % Lymphocytes 14.6 (L) 20.0 - 45.0 % % Monocytes 4.3 4.0 - 12.0 % % Eosinophils 1.6 0.0 - 5.0 % % Basophils 0.6 0.0 - 1.0 % Absolute Neutrophils 7.00 1.80 - 8.50 K/uL Absolute Lymphocytes 1.30 0.60 - 3.20 K/uL Absolute Monocytes 0.40 0.00 - 1.00 K/uL Absolute Eosinophils 0.10 0.00 - 0.40 K/uL Absolute Basophils 0.10 0.00 - 0.10 K/uL Prealbumin Collection Time: 11/02/17 7:41 Result Value Ref Range PREALBUMIN 10 (L) 18 - 38 mg/dL POC Glucose Collection Time: 11/02/17 9:49 Result Value Ref Range Glucose, POC 50 (L) 70 - 109 mg/dL POC Glucose Collection Time: 11/02/17 10:05 Result Value Ref Range Glucose, POC 58 (L) 70 - 109 mg/dL POC Glucose Collection Time: 11/02/17 10:18 Result Value Ref Range Glucose, POC 76 70 - 109 mg/dL POC Glucose Collection Time: 11/02/17 10:34 Result Value Ref Range Glucose, POC 74 70 - 109 mg/dL Influenza A and B RNA, NAAT Collection Time: 11/02/17 10:50 Result Value Ref Range Influenza A PCR Negative Negative Influenza B PCR Negative Negative POC Glucose Collection Time: 11/02/17 11:03 Result Value Ref Range Glucose, POC 80 70 - 109 mg/dL POC Glucose Collection Time: 11/02/17 12:27 Result Value Ref Range Glucose, POC 87 70 - 109 mg/dL POC Glucose Collection Time: 02/20/18 13:35 Result Value Ref Range Glucose, POC 76 70 - 109 mg/dL POC Glucose Collection Time: 11/02/17 15:02 Result Value Ref Range Glucose, POC 86 70 - 109 mg/dL POC Glucose Collection Time: 11/02/17 16:15 Result Value Ref Range Glucose, POC 124 (H) 70 - 109 mg/dL POC Glucose Collection Time: 11/02/17 18:14 Result Value Ref Range Glucose, POC 166 (H) 70 - 109 mg/dL POC Glucose Collection Time: 11/02/17 19:42 Result Value Ref Range Glucose, POC 167 (H) 70 - 109 mg/dL POC Glucose Collection Time: 11/02/17 22:17 Result Value Ref Range Glucose, POC 170 (H) 70 - 109 mg/dL POC Glucose Collection Time: 11/03/17 0:45 Result Value Ref Range Glucose, POC 189 (H) 70 - 109 mg/dL POC Glucose Collection Time: 11/03/17 4:09 Result Value Ref Range Glucose, POC 175 (H) 70 - 109 mg/dL Basic Metabolic Panel Collection Time: 11/03/17 5:02 Result Value Ref Range NA 135 (L) 136 - 149 mmol/L K 4.5 3.5 - 5.1 mmol/L CL 102 98 - 109 mmol/L CO2 23 (L) 24 - 31 mmol/L ANION GAP 10 3 - 16 mmol/L GLUCOSE 173 (H) 70 - 109 mg/dL BUN 56 (H) 7 - 18 mg/dL Creatinine, Serum/Plasma 3.65 (H) 0.60 - 1.30 mg/dL eGFR if not 12 (L) >=60 mL/min/1.73m2 CALCIUM 8.2 (L) 8.3 - 10.5 mg/dL BUN/CREA 15.3 CBC with Differential Collection Time: 11/03/17 5:02 Result Value Ref Range WBC 10.7 4.0 - 11.0 K/uL RBC 2.97 (L) 3.70 - 5.20 M/uL Hgb 9.0 (L) 11.5 - 16.0 g/dL Hct 27.0 (L) 34.0 - 47.0 % MCV 90.9 83.0 - 101.0 fL MCH 30.2 28.0 - 35.0 pg MCHC 33.2 32.0 - 36.0 g/dL RDW-CV 14.3 <15.0 % Platelet Count 142 140 - 440 K/uL MPV 9.2 fL % Neutrophils 88.6 (H) 45.0 - 82.0 % % Lymphocytes 9.4 (L) 20.0 - 45.0 % % Monocytes 1.8 (L) 4.0 - 12.0 % % Eosinophils 0.0 0.0 - 5.0 % % Basophils 0.2 0.0 - 1.0 % Absolute Neutrophils 9.50 (H) 1.80 - 8.50 K/uL Absolute Lymphocytes 1.00 0.60 - 3.20 K/uL Absolute Monocytes 0.20 0.00 - 1.00 K/uL Absolute Eosinophils 0.00 0.00 - 0.40 K/uL Absolute Basophils 0.00 0.00 - 0.10 K/uL Magnesium Collection Time: 11/03/17 5:02 Result Value Ref Range MG 2.0 1.8 - 2.5 mg/dL Phosphorus Collection Time: 11/03/17 5:02 Result Value Ref Range PHOSPHORUS 4.7 (H) 2.5 - 4.6 mg/dL POC Glucose Collection Time: 11/03/17 6:25 Result Value Ref Range Glucose, POC 172 (H) 70 - 109 mg/dL Micro results Microbiology Results (72 hrs) Procedure Component Value Units Date/Time Influenza A and B RNA, NAAT [[id number]] (Normal) Collected: 11/02/17 1050 Order Status: Completed Lab Status: Final result Updated: 11/02/17 1125 Specimen: Respiratory from Nares Influenza A PCR Negative Influenza B PCR Negative Culture, Urine [[id number]] Collected: 11/02/17 0740 Order Status: Sent Lab Status: In process Updated: 11/02/17 0758 Specimen: Urine Culture, Blood [[id number]] (Normal) Collected: 11/02/17 0024 Order Status: Completed Lab Status: Preliminary result Updated: 11/02/17 1241 Specimen: Blood from Peripheral Blood Culture No growth: Monitored continually by instrument for 5 days Culture, Blood [[id number]] (Abnormal) Collected: 11/02/17 0019 Order Status: Completed Lab Status: Preliminary result Updated: 11/02/17 1515 Specimen: Blood from Peripheral Blood Culture Positive Blood Culture (AA) Gram Stain Result Gram positive cocci in chains Comment: One of four Blood Culture bottles POSITIVE. Critical Result called to and read b ack by Kristen Irving on 11/02/2017 at 15:14 by Edison Short. Narrative: Culture, MRSA [[id number]] Collected: 11/01/172145 Order Status: Sent Lab Status: In process Updated: 11/01/172151 Specimen: Respiratory from Nares Radiology results Ct Abdomen Pelvis Wo Contrast Result Date: 11/02/2017 CT ABDOMEN PELVIS WO CONTRAST 11/02/2017 7:27 PM HISTORY: Eval for signs intra-abdominal inf ection. COMPARISON: 10/05/2017 and 12/06/2007 PROTOCOL: Axial images of the abdomen and pelvis were obtained. Coronal and sagittal reformations were acquired. FINDINGS: Extensive groundg lass consolidation is seen within the dependent portions of the posterior left lower lobe, c oncerning for pneumonia. Prominent mitral annular calcifications are present. There is a mod erate sized sliding type hiatal hernia. Mild bilateral dependent pleural thickening and subs egmental atelectasis. Normal noncontrast appearance of the liver, distended gallbladder, and the biliary and pancreatic ducts. Atrophic appearance of the pancreas. Normal noncontrast a ppearance of the spleen and right adrenal gland. There is mild nodular thickening of the lef t adrenal gland which is nonspecific. Mild bilateral perinephric fat stranding. No suspiciou s mass, hydronephrosis, or hydroureter. No renal calculi identified. Prominent areas seen wi thin the anterior bladder, possibly related to recent Al catheterization, please correlat e clinically. Uterus is surgically absent. Multiple noninflamed colonic diverticula are iden tified. Moderate volume of colonic stool retention. Mild diffuse truncal soft tissue swellin g/edema. Mild to moderate aortic atherosclerosis. Prominent calcification is seen at the alberto gin of bilateral renal arteries. No evidence of suspicious lymphadenopathy. No evidence of f ree fluid or free air. Cortically based focal sclerosis is seen along the anterior right sac rum and anterior aspect of the right femoral head. Multilevel degenerative changes of the th oracolumbar spine. Mild bilateral hip degenerative changes. IMPRESSION - 1. Extensive groun dglass consolidation is seen within the dependent portions of the posterior left lower lobe, concerning for pneumonia. 2. Prominent air is seen within the anterior bladder, possibly re lated to recent Al catheterization, please correlate clinically if there is concern for i nfection. 3. Otherwise, no other acute intra-abdominal abnormality identified. Dictated and Signed by: Itz Madsen MD Electronically signed: 11/02/2017 8:27 PM Xr Chest Ap Portable Result Date: 11/02/2017 XR CHEST AP PORTABLE 11/02/2017 8:14 AM HISTORY: Eval for PNA. COMPARISON: Multiple priors. Findings: Heart size is within normal limits. There is atherosclerosis of the aorta. Mediast inum is unremarkable. Central pulmonary vasculature is normal. Mild scarring are in the lung apices. Overlapping pneumonitis cannot be excluded. Mild to moderate spondylosis is visuali zed. IMPRESSION - Mild scarring in lung apices. Overlapping pneumonitis cannot be excluded. Dictated and Signed by: Salvatore Nunez MD Electronically signed: 11/02/2017 11:56 AM Vitals Ranges: Temp: [36.2 C (97.2 F)-38.9 C (102 F)] 36.2 C (97.2 F) Pulse: [62-93] 62 Resp: [8-27] 14 BP: (102-154)/(41-83) 118/53 Vitals: Temp: 36.2 C (97.2 F) BP: 118/53 Pulse: 62 Resp: 14 SpO2: 96 % SpO2 96 % on nasal cannula at flow rate 2 (decreased from 4)L/min Subjective Patient reports overall improvement in symptoms. (+) cough Exam Gen Get - alert, cooperative Head - Normocephalic Eyes - PERRL, conjunctiva/corneas clear ENT - mucous membranes moist Neck - supple Lungs - + diffuse rhonchi Heart - normal rate, rhythm w/o m/r/g Abdomen - non-tender non-distended Extremities - no peripheral edema Skin - No rashes Neurologic - Alert and oriented x 3 Assessment and Hospital Course Hypoglycemia and hypothermia Plan Hypoglycemia and hypothermia--likely due to continued insulin use despite poor PO intake an d in setting of active infection Bear hugger was initially on, but temp normalized. CXR at OSH negative. TSH WNL. Trops ne gative -Holding lantus 20 units qhs -Nutrition consult to speak with patient about restrictions -Patient has been placed back on D10 yesterday due to worsening glucose levels -q2 hour accuchecks until glucose stablizes -If unable to take off D10 today will consider work up for hypoglycemia Sepsis 10/15 to likely UTI +/- CAP procal negative. Flu swab negative. Patient started having fevers on 11/02. CXR with mild sc arring at lung apices. -Blood culture 11/02 1/4 Gram + cocci in chains -Repeat UA (+), urine culture in process -On ceftriaxone started 11/02, started azithromycin 11/03 -CT abdomen 11/02 showed extensive ground glass opacities within posterior LLL concerning fo r PNA -Repeat bld cultures today to eval for clearance with abx -Ordered CT thorax to evaluate for PNA CKD IV/V creatinine 3.8 from baseline of 3 at last hospital stay -On lasix -Cr 3.65 today, near baseline -Plan for possible temp cath placement for dialysis -Appreciate nephrology recs CAD no signs of ACS, EKG RBBB, trop 0.03 at OSH -On tele -Continue aspirin, lipitor. Hypothyroidism TSH WNL Continue levothyroxine HTN -continue losartan, labetalol PPX: HSQ FEN: renal Current Facility-Administered Medications: acetaminophen 650 mg Oral Q4H PRN albuterol 5 mg Nebulization RT Q4H PRN amLODIPine 10 mg Oral Daily aspirin 325 mg Oral Daily atorvaSTATin 20 mg Oral Nightly bisacodyl 10 mg Rectal Daily PRN calcium carbonate 1,000 mg Oral Q4H PRN calcium-vitamin D 1 tablet Oral BID cefTRIAXone 2 g Intravenous Daily custom IV fluid builder Intravenous Continuous dextrose 12.5 g Intravenous PRN docusate sodium 100 mg Oral BID PRN DULoxetine 30 mg Oral Daily furosemide 80 mg Intravenous Daily gabapentin 100 mg Oral Daily at Noon gabapentin 200 mg Oral BID HYDROcodone-acetaminophen 1-2 tablet Oral Q4H PRN insulin lispro 0-6 Units Subcutaneous Q2H PRN labetalol 200 mg Oral BID levothyroxine 75 mcg Oral QAM AC lidocaine 1 patch Transdermal Daily PRN morphine 2-6 mg Intravenous Q2H PRN olopatadine 1 drop Both Eyes BID ondansetron 4 mg Intravenous Q6H PRN pantoprazole 40 mg Oral QAM AC polyethylene glycol 17 g Oral Daily PRN senna 8.6 mg Oral BID PRN Olegario Peng 11/03/2017 7:08 [facility] olph, [place], [facility] - 11/02/2017 3:43 PM PST PHARMACY SERVICES: ADMISSION MEDICATION REVIEW Ara Tilley is a 72 y.o. female admitted on 11/01/17. Patient is a somewhat reliable historian. Location of Patient when reviewed: ED X Medical Floor Patient s prior to admit medication and over the counter (OTC) medications/herbal supplem ents list obtained from: X Verbal interview X Patient able to recall SOME Name, strength, and directions X Pharmacy list names: [facility] BILINGUAL NANNY (Prescription Monitoring Program) X [employer] insurance reported information X Care Everywhere X Other sources: Verbal interview with patients family Vaccines up to date? Yes No Unsure Influenza X Pneumococcal X Tdap X Shingles X Noted medications discrepancies or medication-related issues: Dosage change: Medication: Prior to Admission Sig: Correct sig: Olopatadine 0.1% 1 drop twice daily 1-2 drops in both eyes twice daily Recreational Substances , Tobacco & Alcohol use : Drug: Route Frequency: Last Used: marijuana smoke Multiple times daily Other: During interview patient kept asking for marijuana. Room had odor of marijuana (may have come off of 5 people that were in there). Medication: Prior to Admission Sig: Patient taking differently WIRELESS WATCHER as: Atorvastatin 20mg 1 tab by mouth nightly 1 tab by mouth every morning Calcium- vitamin d 600-400mg 1 tab by mouth twice daily 1 tab by mouth every morning Duloxetine 30mg DR 1 capsule by mouth daily Patient has not started this medication WIRELESS WATCHER, cortés s not filled at pharmacy [id number] 200mg by mouth twice daily 200mg by mouth every morning labetalol 200mg 1 tab by mouth twice daily Patient has not started this medication WIRELESS WATCHER, has not filled at pharmacy Best possible WIRELESS WATCHER medication list after pharmacy review: Prior to Admission medications Medication Sig Alcohol Swabs 70 % PADS by Does not apply route. Use 1 to wipe area as directed. amLODIPine (NORVASC) 10 MG tablet Take 1 tablet by mouth Daily. artificial tears (AKWA TEARS) ophthalmic ointment Place into both eyes every hour as neede d for Dry Eyes. atorvaSTATin (LIPITOR) 20 mg tablet Take 20 mg by mouth nightly. calcium-vitamin D (CALCIUM 600-D) 600 mg-400 units per tablet Take 1 tablet by mouth 2 time s daily. Chlorhexidine Gluconate 4 % SOLN Apply topically. Use one capful mixed in 1 pint of water and scrub wound daily or as directed. DULoxetine (CYMBALTA) [address] capsule Take 1 capsule by mouth Daily. Patient not taking: Reported on 11/02/2017 furosemide (LASIX) 80 mg tablet Take 1 tablet by mouth Daily. gabapentin (NEURONTIN) 100 mg capsule Take 200 mg by mouth 2 times daily. Morning and eveni ng gabapentin (NEURONTIN) 100 mg capsule Take 100 mg by mouth Daily (at Noon). As needed Glucose Blood (TRUE METRIX BLOOD GLUCOSE TEST ) by In Vitro route. hydrophilic ointment Apply topically as needed for Dry Skin. Apply a small amount to affec rich area. insulin glargine (LANTUS) 100 units/mL injection (vial) Take 20 units SQ each morning incre asing to home regimen(30 units) for increasing blood sugar labetalol (NORMODYNE) 200 mg tablet Take 1 tablet by mouth 2 times daily. Patient not taking: Reported on 11/02/2017 Lancets MISC by Does not apply route. Use 1 lancet for blood testing as directed. levothyroxine (SYNTHROID, LEVOTHROID) 75 MCG tablet Take 75 mcg by mouth every morning (bef ore breakfast). loratadine (CLARITIN) 10 mg tablet Take 1 tablet by mouth Daily as needed for Allergies. losartan (COZAAR) 25 mg tablet Take 1 tablet by mouth Daily. Misc. Throat Products (OASIS MOISTURIZING MOUTHWASH MT) Take 1 oz by mouth 2 times daily. olopatadine (PATANOL) 0.1% ophthalmic solution Place 1-2 drops into both eyes 2 times daily . pantoprazole (PROTONIX) 40 mg tablet Take 40 mg by mouth every morning (before breakfast). UNABLE TO FIND Med Name: Cadoexomer Iodine 0.9 % gel. Apply a small amount to affected are a as directed during dressing changes. Medication review performed and electronically signed by Puja Whitman, English Language Learner Teacher 2017 15:31 Electronically signed by: Ta Ronquillo RPH 11/02/2017 15:40 Olegario Keen MD - 11/02/2017 7:[address] [facility] HOSPITALIST PROGRESS NOTE Patient: Ara Tilley : 1945: Age: 72 y.o. MedRec: [id number] Admission date: 11/01/2017 Hospital day # : 1 Physician author: Olegario Peng MD Today: 11/02/2017 Allergies: Allergies Allergen Reactions Levofloxacin Lisinopril Pt [...] (TYLENOL) tablet 650 mg 650 mg Oral Q4H PRN Rupal Laguna MD amLODIPine (NORVASC) tablet 10 mg 10 mg Oral Daily Rupal Laguna MD aspirin EC tablet 325 mg 325 mg Oral Daily Rupal Laguna MD atorvaSTATin (LIPITOR) tablet 20 mg 20 mg Oral Nightly Rupal Laguna MD 20 mg at 2256 bisacodyl (DULCOLAX) suppository 10 mg 10 mg Rectal Daily PRN Rupal Laguna MD calcium carbonate (TUMS) chewable tablet 1,000 mg 1,000 mg Oral Q4H PRN Rupal Laguna MD calcium-vitamin D (OSCAL) 500 mg-200 units per tablet 1 tablet 1 tablet Oral BID Abbie Laguna MD 1 tablet at 11/01/172256 dextrose 50% injection 12.5 g 12.5 g Intravenous PRN Haris Segal MD docusate sodium (COLACE) capsule 100 mg 100 mg Oral BID PRN Rupal Laguna MD DULoxetine (CYMBALTA) DR capsule 30 mg 30 mg Oral Daily Rupal Laguna MD furosemide (LASIX) tablet 80 mg 80 mg Oral Daily Rupal Laguna MD gabapentin (NEURONTIN) capsule 100 mg 100 mg Oral Daily at Noon Rupal Laguna MD gabapentin (NEURONTIN) capsule 200 mg 200 mg Oral BID Rupal Laguna MD 200 mg at 02 /19/18 2257 heparin 5,000 units/mL injection 5,000 Units 5,000 Units Subcutaneous 2 times per day Rupal Laguna MD 5,000 Units at 11/01/17 2231 HYDROcodone-acetaminophen (NORCO) 5-325 mg per tablet 1-2 tablet 1-2 tablet Oral Q4H P RN Rupal Laguna MD 1 tablet at 11/02/17 0635 insulin lispro (humaLOG KWIKPEN) 100 units/mL injection (pen) 0-6 Units 0-6 Units Subc utaneous Q2H PRN Haris Segal MD labetalol (NORMODYNE) tablet 200 mg 200 mg Oral BID Rupal Laguna MD levothyroxine (SYNTHROID) tablet 75 mcg 75 mcg Oral QAM AC Rupal Laguna MD 75 mcg at 11/02/17 0632 lidocaine (LIDODERM) 5% patch 1 patch 1 patch Transdermal Daily PRN Rupal Laguna MD losartan (COZAAR) tablet 25 mg 25 mg Oral Daily Rupal Laguna MD morphine injection 2-6 mg 2-6 mg Intravenous Q2H PRN Rupal Laguna MD olopatadine (PATANOL) 0.1% ophthalmic solution 1 drop 1 drop Both Eyes BID Rupal lomas MD ondansetron (ZOFRAN) injection 4 mg 4 mg Intravenous Q6H PRN Rupal Laguna MD pantoprazole (PROTONIX) DR tablet 40 mg 40 mg Oral QAM AC Rupal Laguna MD 40 mg at 11/02/17 0632 polyethylene glycol (MIRALAX) powder 17 g 17 g Oral Daily PRN Rupal Laguna MD senna (SENOKOT) tablet 8.6 mg 8.6 mg Oral BID PRN Rupal Laguna MD sodium chloride 0.9% (NS) infusion Intravenous Continuous Rupal Laguna MD 75 mL/hr at 11/02/17 0551 Current Infusions: sodium chloride 0.9% 75 mL/hr at 11/02/17 0551 Objective Data Point of care glucose Recent Labs Lab 11/02/17 0550 11/02/17 0407 11/02/17 0201 11/02/17 0005 11/01/17 2210 POCGLU 94 129* 160* 191* 225* Labs last 24 hours Recent Results (from the past 24 hour(s)) POC Glucose Collection Time: 11/01/17 22:10 Result Value Ref Range Glucose, POC 225 (H) 70 - 109 mg/dL POC Glucose Collection Time: 11/02/17 0:05 Result Value Ref Range Glucose, POC 191 (H) 70 - 109 mg/dL Magnesium Collection Time: 11/02/17 0:19 Result Value Ref Range MG 2.3 1.8 - 2.5 mg/dL Basic Metabolic Panel Collection Time: 11/02/17 0:19 Result Value Ref Range NA 136 136 - 149 mmol/L K 4.3 3.5 - 5.1 mmol/L CL 104 98 - 109 mmol/L CO2 23 (L) 24 - 31 mmol/L ANION GAP 9 3 - 16 mmol/L GLUCOSE 184 (H) 70 - 109 mg/dL BUN 56 (H) 7 - 18 mg/dL Creatinine, Serum/Plasma 3.76 (H) 0.60 - 1.30 mg/dL eGFR if not 12 (L) >=60 mL/min/1.73m2 CALCIUM 8.5 8.3 - 10.5 mg/dL BUN/CREA 14.9 Troponin I Collection Time: 11/02/17 0:19 Result Value Ref Range Troponin I 0.01 <0.06 ng/mL TSH Collection Time: 11/02/17 0:19 Result Value Ref Range TSH 0.92 0.45 - 5.33 uIU/mL Procalcitonin Collection Time: 11/02/17 0:19 Result Value Ref Range Procalcitonin 0.07 <=0.50 ng/mL Comment CBC with Differential Collection Time: 11/02/17 0:30 Result Value Ref Range WBC 7.9 4.0 - 11.0 K/uL RBC 3.01 (L) 3.70 - 5.20 M/uL Hgb 9.0 (L) 11.5 - 16.0 g/dL Hct 27.2 (L) 34.0 - 47.0 % MCV 90.5 83.0 - 101.0 fL MCH 30.1 28.0 - 35.0 pg MCHC 33.2 32.0 - 36.0 g/dL RDW-CV 14.4 <15.0 % Platelet Count 168 140 - 440 K/uL MPV 9.0 fL % Neutrophils 75.8 45.0 - 82.0 % % Lymphocytes 17.8 (L) 20.0 - 45.0 % % Monocytes 4.8 4.0 - 12.0 % % Eosinophils 1.3 0.0 - 5.0 % % Basophils 0.3 0.0 - 1.0 % Absolute Neutrophils 6.00 1.80 - 8.50 K/uL Absolute Lymphocytes 1.40 0.60 - 3.20 K/uL Absolute Monocytes 0.40 0.00 - 1.00 K/uL Absolute Eosinophils 0.10 0.00 - 0.40 K/uL Absolute Basophils 0.00 0.00 - 0.10 K/uL POC Glucose Collection Time: 11/02/17 2:01 Result Value Ref Range Glucose, POC 160 (H) 70 - 109 mg/dL POC Glucose Collection Time: 11/02/17 4:07 Result Value Ref Range Glucose, POC 129 (H) 70 - 109 mg/dL POC Glucose Collection Time: 11/02/17 5:50 Result Value Ref Range Glucose, POC 94 70 - 109 mg/dL Troponin I Collection Time: 11/02/17 6:15 Result Value Ref Range Troponin I 0.01 <0.06 ng/mL Micro results Microbiology Results (72 hrs) Procedure Component Value Units Date/Time Culture, Blood [[id number]] Collected: 11/02/17 0024 Order Status: Sent Lab Status: In process Updated: 11/02/1732 Specimen: Blood from Peripheral Blood Culture, Blood [[id number]] Collected: 11/02/17 0019 Order Status: Sent Lab Status: In process Updated: 11/02/1732 Specimen: Blood from Peripheral Blood Culture, MRSA [[id number]] Collected: 11/01/172145 Order Status: Sent Lab Status: In process Updated: 11/01/172151 Specimen: Respiratory from Nares Radiology results No results found. Vitals Ranges: Temp: [36.6 C (97.9 F)-37 C (98.6 F)] 37 C (98.6 F) Pulse: [64-83] 83 Resp: [11-24] 24 BP: (134-157)/(45-116) 150/45 Vitals: Temp: 37 C (98.6 F) BP: 150/45 Pulse: 83 Resp: 24 SpO2: 97 % SpO2 97 % on room air at flow rate L/min Subjective Patient reports being confused over diet restrictions. Exam Gen Get - alert, cooperative Head - Normocephalic Eyes - PERRL, conjunctiva/corneas clear ENT - mucous membranes moist Neck - supple Lungs - CTA throughout Heart - normal rate, rhythm w/o m/r/g Abdomen - non-tender non-distended Extremities - no peripheral edema, no clubbing or cyanosis Skin - No rashes Neurologic - Alert and oriented x 3. Assessment and Hospital Course Hypoglycemia and hypothermia Plan Hypoglycemia and hypothermia--likely due to continued insulin use despite poor PO intake. Bear devgger was initially on, but temp normalized. No obvious source of infection. 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 Hypothyroidism Continue levothyroxine TSH WNL HTN -continue losartan, labetalol PPX: HSQ FEN: renal Current Facility-Administered Medications: acetaminophen 650 mg Oral Q4H PRN amLODIPine 10 mg Oral Daily aspirin 325 mg Oral Daily atorvaSTATin 20 mg Oral Nightly bisacodyl 10 mg Rectal Daily PRN calcium carbonate 1,000 mg Oral Q4H PRN calcium-vitamin D 1 tablet Oral BID dextrose 12.5 g Intravenous PRN docusate sodium 100 mg Oral BID PRN DULoxetine 30 mg Oral Daily furosemide 80 mg Oral Daily gabapentin 100 mg Oral Daily at Noon gabapentin 200 mg Oral BID heparin 5,000 Units Subcutaneous 2 times per day HYDROcodone-acetaminophen 1-2 tablet Oral Q4H PRN insulin lispro 0-6 Units Subcutaneous Q2H PRN labetalol 200 mg Oral BID levothyroxine 75 mcg Oral QAM AC lidocaine 1 patch Transdermal Daily PRN losartan 25 mg Oral Daily morphine 2-6 mg Intravenous Q2H PRN olopatadine 1 drop Both Eyes BID ondansetron 4 mg Intravenous Q6H PRN pantoprazole 40 mg Oral QAM AC polyethylene glycol 17 g Oral Daily PRN senna 8.6 mg Oral BID PRN sodium chloride 0.9% Intravenous Continuous Olegario Peng 11/02/2017 7:38 [facility] documented in this e ncounter H&P Notes Rupal Laguna MD - 11/01/2017 10:36 PM PST HISTORY AND PHYSICAL EXAMINATION Pt. Name/Age/: Ara Tilley 72 y.o. 1945 Date of admission: 11/01/2017 Admitting Physician: Rupal Laguna Primary Care Physician: Nan Bruno History taken from: patient and past medical records Chief Complaint/Reason for Visit: Sent by [facility] for hypoglycemia, hypothyroidism, and CKD History of Present Illness: 72yoF w/ hx of IDDM, HTN, CKD IV/V, CAD, who initially presented to [facility] after iwona garrett found down in her home and unresponsive. EMS noted her BS to be 35 and gave her an amp o f D50. Her blood sugar improved, but she was still confused, so she was brought to the ER. There, she was noted to be quite hypothermic to 88F, and blood sugar continued to be low. She was placed on a bear hugger and D10. Her vitals remained stable, and her mental status has improved. Since she has significant CKD and plans to get an AV fistula this week, she w as transferred to us for further care. On my evaluation, patient was alert and oriented. She states she is feeling much better. She does not fully remember earlier today, but says that she has not been eating well since her recent discharge here last month. At that time, she had been evaluated by nephrology du e to her worsening renal function and they had discussed potential HD. She had also been in formed that she would need to adjust her diet to avoid too much potassium and phosphorus. S he said that since discharge, she was not sure what foods she could actually eat. On top of this, she ran out of food stamps recently, and could not afford food. She has only been ea ting here and there. She did have some garbanzo beans and fried bread last night. She did not check her blood sugar last night, but this morning she thinks it was in the 80-90's. Eliza posadas thinks that she then had her lantus with her morning medications. She denies any fevers, URI symptoms, SOB, cough, abdominal pain, nausea, diarrhea, dysuria, CP. She is tearful abo ut the idea of eventual HD, and she is still not decided whether she really wants to go thro [facility] with it. She feels overwhelmed by all of this. Past Medical History: Past Medical History: Diagnosis Date Anemia Arthritis Back pain Cancer (HCC) Diabetes (HCC) Heart disease History of blood clots Hypercholesteremia Hypertension Seasonal allergies Past Surgical History: Procedure Laterality Date EYE SURGERY 2009 MASTECTOMY 2006 left ear NOSE SURGERY 2008 Allergies: Allergies Allergen Reactions Levofloxacin Lisinopril Pt [...] (TYLENOL) tablet 650 mg 650 mg Oral Q4H PRN Rupal Laguna MD [START ON 11/02/2017] amLODIPine (NORVASC) tablet 10 mg 10 mg Oral Daily Rupal Laguna MD [START ON 11/02/2017] aspirin EC tablet 325 mg 325 mg Oral Daily Rupal Laguna MD atorvaSTATin (LIPITOR) tablet 20 mg 20 mg Oral Nightly Rupal Laguna MD bisacodyl (DULCOLAX) suppository 10 mg 10 mg Rectal Daily PRN Rupal Laguna MD calcium carbonate (TUMS) chewable tablet 1,000 mg 1,000 mg Oral Q4H PRN Rupal Laguna MD calcium-vitamin D (OSCAL) 500 mg-200 units per tablet 1 tablet 1 tablet Oral BID Abbie Laguna MD dextrose 50% injection 12.5 g 12.5 g Intravenous PRN Haris Segal MD docusate sodium (COLACE) capsule 100 mg 100 mg Oral BID PRN Rupal Laguna MD [START ON 11/02/2017] DULoxetine (CYMBALTA) DR capsule 30 mg 30 mg Oral Daily Rupal petersen MD [START ON 11/02/2017] furosemide (LASIX) tablet 80 mg 80 mg Oral Daily Jessie Diop [START ON 11/02/2017] gabapentin (NEURONTIN) capsule 100 mg 100 mg Oral Daily at Noon L robert Laguna MD gabapentin (NEURONTIN) capsule 200 mg 200 mg Oral BID Rupal Laguna MD heparin 5,000 units/mL injection 5,000 Units 5,000 Units Subcutaneous 2 times per day Rupal Laguna MD 5,000 Units at 11/01/17 2231 HYDROcodone-acetaminophen (NORCO) 5-325 mg per tablet 1-2 tablet 1-2 tablet Oral Q4H P RN Rupal Laguna MD insulin lispro (humaLOG KWIKPEN) 100 units/mL injection (pen) 0-6 Units 0-6 Units Subc utaneous Q2H PRN Haris Segal MD [START ON 11/02/2017] labetalol (NORMODYNE) tablet 200 mg 200 mg Oral BID Rupal Laguna MD [START ON 11/02/2017] levothyroxine (SYNTHROID) tablet 75 mcg 75 mcg Oral QAM AC Isaac Laguna MD lidocaine (LIDODERM) 5% patch 1 patch 1 patch Transdermal Daily PRN Rupal Laguna MD [START ON 11/02/2017] losartan (COZAAR) tablet 25 mg 25 mg Oral Daily Rupal Laguna MD morphine injection 2-6 mg 2-6 mg Intravenous Q2H PRN Rupal Laguna MD olopatadine (PATANOL) 0.1% ophthalmic solution 1 drop 1 drop Both Eyes BID Rupal lomas MD ondansetron (ZOFRAN) injection 4 mg 4 mg Intravenous Q6H PRN Rupal Laguna MD [START ON 11/02/2017] pantoprazole (PROTONIX) DR tablet 40 mg 40 mg Oral QAM AC Rupal Laguna MD polyethylene glycol (MIRALAX) powder 17 g 17 g Oral Daily PRN Rupal Laguna MD senna (SENOKOT) tablet 8.6 mg 8.6 mg Oral BID PRN Rupal Laguna MD Family History: Family History Problem Relation Age of Onset Diabetes Other grandfather Diabetes Other grandmother Cancer Sister Social History: Social History Social History Marital status: Single Spouse name: N/A Number of children: N/A Years of education: N/A Occupational History Not on file. Social History Main Topics Smoking status: Never Smoker Smokeless tobacco: Never Used Alcohol use No Drug use: Unknown Sexual activity: Not on file Other Topics Concern Not on file Social History Narrative No narrative on file Review of Systems: A 12 system, 2 point review was conducted and is negative except as not ed in the [facility] or here. Exam: Vital Signs on Arrival: Temp: 36.8 C (98.2 F) BP: 136/63 Pulse: 72 Resp: 18 SpO2: 98 % on Most Recent Vital Signs: Temp: 36.8 C (98.2 F) BP: 152/87 Pulse: 64 Resp: 12 SpO2: 97 % on Admission Weight: Weight: 87.2 kg (192 lb 3.9 oz) BMI: Body mass index is 29.23 kg/m . Physical Examination: General: Alert, oriented x3, tearful, no cardiopulmonary distress HEENT: Dry MM, EOMI, PERRLA Cardiovascular: Regular S1S2, no murmur Respiratory: CTAB, no crackles or wheezes Abdomen: S NT ND BS normoactive Genitourinary: deferred Extremities: Trace ankle edema b/l Skin: No rashes Neurological: nonfocal Psychiatric: tearful Diagnostic Studies: Available Labs and Images were reviewed personally. Significant resul ts and findings are addressed below or in the Assessment and Plan. Code Status: DNR/DNI Assessment and Plan: 1. Hypoglycemia and hypothermia--likely due to continued insulin use despite poor PO intake . BS 200 at this time, so have turned off D10. Will monitor glucose q2h for now, and can s pace out if her BS remains stable. Can then restart on lower dose of lantus and SSI. Bear hugger as needed until temperature normalizes. No obvious source of infection. CXR at OSH negative, UA neg, blood cultures drawn, PCT pending. Will hold off on abx for now. TSH pen ding. Will have nutrition work with the patient so that she feels more comfortable with wha t a renal diet entails on discharge. 2. CKD IV/V--creatinine 3.8 from baseline of 3 at last hospital stay. Given fluids at OSH. Will repeat labs here. Plan is for AV fistula this week. 3. CAD--no signs of ACS, EKG RBBB, trop 0.03 at OSH. Will trend and monitor on tele, but l ikely not the cause of her hypothermia. Continue aspirin, lipitor. 4. Hypothyroidism--check TSH. Continue levothyroxine. 5. HTN--continue losartan, labetalol FEN: renal/DM PPx; sub q hep, SCDs Code: DNR/DNI, per patient wishes on admission Dispo: Inpatient, as will likely require >2MN hospital stay. Stepdown for close glucose an d hemodynamic monitoring. Electronically signed by: Rupal Laguna MD, 11/01/2017 22:36 [facility] Lab data: Recent Results (from the past 24 hour(s)) POC Glucose Collection Time: 11/01/17 22:10 Result Value Ref Range Glucose, POC 225 (H) 70 - 109 mg/dL documented in this enc ounter Procedure Notes Gray Quiros MD, FACS - 11/03/2017 3:06 PM PSTProcedure note: Preprocedure diagnoses: Acute and chronic renal failure Postprocedure diagnoses: Same Procedure: Right IJ Orioncandijen dialysis catheter Date of procedure: 11/03/2017 Surgeon Ishaan EBL less than 20 cc Brief clinical note this is a pleasant 72-year-old female who is in the intensive care unit . She is to begin hemodialysis today. She does not have access for hemodialysis. She has not had previous central lines. Her platelet count is normal. Dr. Muñoz has requested t hat we place this catheter for him today. Risks, benefits and alternatives are carefully ex plained to the patient. Consent is obtained. After obtaining consent and performing a surgical timeout, the patient is positioned in rev erse Trendelenburg and sterilely prepped and draped in the usual manner. The right IJ is id entified using ultrasound and marked. It the IJ is confirmed with compression testing. A s mall skin incision is made over the marking after anesthetizing with 1% lidocaine. Using ul trasound guidance, the needle was inserted into the internal jugular vein and wire was place d gaining access in the standard Seldinger technique. The track was dilated with the dilato rs and then the Mahurkar catheter was placed over the wire. The wire was removed. There wa s excellent return of blood. The catheter flushed easily. It was flushed with saline and t hen heparinized saline. It was sutured into place. Sterile dressing was placed. Portabl e Chest X-Ray Was Ordered. Disposition. Patient tolerated procedure well. There are complications. She is stable th roughout. docum ented in this encounter Consult Notes Nora Leo MD - 11/06/2017 4:[address] [facility] ADMIT HISTORY AND PHYSICAL Primary Care Physician: Francisca Womack PATIENT NAME: Ara Tilley : 1945 TODAY'S DATE: 11/06/2017 CHIEF COMPLAINT: ESRD REASON FOR CONSULTATION: ESRD History OF PRESENT ILLNESS: I was asked by Dr. Brigida Moseley to consult on this patient for the general surgery team. Ara Tilley is a 72 y.o. female with history of diabetes mellitus, hypertension, EK G 4/5, and CAD who was admitted on 11/01 after being transferred from [facility] seps is likely secondary to UTI +/- community-acquired pneumonia, hypoglycemia, and hypothermia. She was found down at home and unresponsive per reports. Due to her acute on chronic renal failure, a hemodialysis catheter was placed into the right internal jugular vein on 11/03/19 18. The patient has since undergone hemodialysis. Also had bacteremia with an unclear sour ce. The last blood cultures from 11/04 are currently no growth to date however. The patient was dialyzing today. She denies any shortness of breath or chest pain. She is distressed about the thought of hemodialysis and having a more permanent catheter. PAST MEDICAL HISTORY Past Medical History: Diagnosis Date Anemia Arthritis Back pain Cancer (HCC) Diabetes (HCC) Heart disease History of blood clots Hypercholesteremia Hypertension Seasonal allergies PAST SURGICAL HISTORY Past Surgical History: Procedure Laterality Date EYE SURGERY 2009 MASTECTOMY 2006 left ear NOSE SURGERY 2009 MEDICATIONS PRIOR TO ADMISSION Prior to Admission medications Medication Sig Start Date End Date Taking? Authorizing Provider Alcohol Swabs 70 % PADS by Does not apply route. Use 1 to wipe area as directed. Histori yancy ProviderMD amLODIPine (NORVASC) 10 MG tablet Take 1 tablet by mouth Daily. 10/07/17 Yes Edison Keys MD artificial tears (AKWA TEARS) ophthalmic ointment Place into both eyes every hour as neede d for Dry Eyes. Yes Historical Provider, atorvaSTATin (LIPITOR) 20 mg tablet Take 20 mg by mouth nightly. Yes Historical Provider, calcium-vitamin D (CALCIUM 600-D) 600 mg-400 units per tablet Take 1 tablet by mouth 2 time s daily. Yes Historical Provider, Chlorhexidine Gluconate 4 % SOLN Apply topically. Use one capful mixed in 1 pint of water and scrub wound daily or as directed. Yes Historical Provider, DULoxetine (CYMBALTA) [address] capsule Take 1 capsule by mouth Daily. Patient not taking: Reported on 11/02/2017 10/07/17 Edison Keys MD furosemide (LASIX) 80 mg tablet Take 1 tablet by mouth Daily. 10/07/17 Yes Jessie Maldonado gabapentin (NEURONTIN) 100 mg capsule Take 200 mg by mouth 2 times daily. Morning and eveni ng Yes Historical ProviderMD gabapentin (NEURONTIN) 100 mg capsule Take 100 mg by mouth Daily (at Noon). As needed Hi storical ProviderMD Glucose Blood (TRUE METRIX BLOOD GLUCOSE TEST ) by In Vitro route. Historical Provider , hydrophilic ointment Apply topically as needed for Dry Skin. Apply a small amount to affec rich area. Historical Provider, insulin glargine (LANTUS) 100 units/mL injection (vial) Take 20 units SQ each morning incre asing to home regimen(30 units) for increasing blood sugar 10/06/17 Yes Edison Keys MD labetalol (NORMODYNE) 200 mg tablet Take 1 tablet by mouth 2 times daily. Patient not taking: Reported on 11/02/2017 10/06/17 Edison Keys MD Lancets MISC by Does not apply route. Use 1 lancet for blood testing as directed. Histor ical Provider, levothyroxine (SYNTHROID, LEVOTHROID) 75 MCG tablet Take 75 mcg by mouth every morning (bef ore breakfast). Yes Historical Provider, loratadine (CLARITIN) 10 mg tablet Take 1 tablet by mouth Daily as needed for Allergies. Yes Edison Keys MD losartan (COZAAR) 25 mg tablet Take 1 tablet by mouth Daily. 10/07/[address] [facility]. Throat Products (OASIS MOISTURIZING MOUTHWASH MT) Take 1 oz by mouth 2 times daily. Yes Historical Provider, olopatadine (PATANOL) 0.1% ophthalmic solution Place 1-2 drops into both eyes 2 times daily . Yes Historical Provider, pantoprazole (PROTONIX) 40 mg tablet Take 40 mg by mouth every morning (before breakfast). Yes Historical Provider, UNABLE TO FIND Med Name: Cadoexomer Iodine 0.9 % gel. Apply a small amount to affected are a as directed during dressing changes. Yes Historical Provider, CURRENT MEDICATIONS Current Facility-Administered Medications Medication Dose Route Frequency Provider Last Rate Last Dose acetaminophen (TYLENOL) tablet 650 mg 650 mg Oral Q4H PRN Rupal Laguna MD albumin 25% IVPB 12.5 g 12.5 g Intravenous PRN Darlin Moseley MD albuterol 2.5 mg/3 mL nebulizer solution 5 mg 5 mg Nebulization RT Q4H PRN Anibal arcos MD atorvaSTATin (LIPITOR) tablet 20 mg 20 mg Oral Nightly Rupal Laguna MD 20 mg at 2128 bisacodyl (DULCOLAX) suppository 10 mg 10 mg Rectal Daily PRN Rupal Laguna MD calcium-vitamin D (OSCAL) 500 mg-200 units per tablet 1 tablet 1 tablet Oral BID Abbie Laguna MD 1 tablet at 11/06/17 09 dextrose 50% injection 12.5 g 12.5 g Intravenous PRN Haris Segal MD docusate sodium (COLACE) capsule 100 mg 100 mg Oral BID Olegario Peng MD 100 mg a t 11/06/17 09 docusate sodium (COLACE) capsule 100 mg 100 mg Oral BID PRN Rupal Laguna MD DULoxetine (CYMBALTA) DR capsule 30 mg 30 mg Oral Daily Rupal Laguna MD 30 mg at 0 11/06/17 0904 epoetin karthik (EPOGEN, PROCRIT) 10,000 units/mL injection 10,000 Units 10,000 Units Sub cutaneous Once per day on Wed Gopi Muñoz, DO 10,000 Units at 11/05/17 1015 ferric gluconate (FERRLECIT) 125 mg in sodium chloride 0.9% 100 mL IVPB 125 mg Intrave nous Daily Gopi Muñoz, DO 110 mL/hr at 11/06/17 1344 125 mg at 11/06/17 1344 furosemide (LASIX) tablet 80 mg 80 mg Oral BID (8 and 16) Darlin Moseley MD 80 mg at 11/06/17 1343 gabapentin (NEURONTIN) capsule 100 mg 100 mg Oral Daily at Noon Rupal Laguna MD 10 0 mg at 11/06/17 1155 gabapentin (NEURONTIN) capsule 200 mg 200 mg Oral BID Rupal Laguna MD 200 mg at 0904 heparin 1,000 units/mL injection 1,500-6,000 Units 1,500-6,000 Units Intercatheter PRN Darlin Moseley MD 5,000 Units at 11/06/17 1316 heparin 1,000 units/mL injection 500 Units 500 Units Intravenous With each dialysis Je angelica Moseley MD 500 Units at 11/06/17 0820 heparin in half-normal saline 50 units/mL infusion 200 Units/hr Intravenous Continuous Darlin Moseley MD Stopped at 11/06/17 1312 HYDROcodone-acetaminophen (NORCO) 5-325 mg per tablet 1-2 tablet 1-2 tablet Oral Q4H P RN Rupal Laguna MD 2 tablet at 11/05/17 0134 insulin lispro (humaLOG KWIKPEN) 100 units/mL injection (pen) 0-12 Units 0-12 Units Weller bcutaneous 4x Daily WC and HS Anibal Malik MD 2 Units at 11/04/17 1709 insulin lispro (humaLOG KWIKPEN) 100 units/mL injection (pen) 0-6 Units 0-6 Units Subc utaneous Q2H PRN Haris Segal MD labetalol (NORMODYNE) tablet 100 mg 100 mg Oral BID Darlin Moseley MD 100 mg at 0 11/06/17 1343 levoFLOXacin (LEVAQUIN) tablet 750 mg 750 mg Oral Every Other Day Olegario Peng MD 750 mg at 11/06/17 0902 levothyroxine (SYNTHROID) tablet 75 mcg 75 mcg Oral QAM AC Rupal Laguna MD 75 mcg at 11/06/17 0631 lidocaine (LIDODERM) 5% patch 1 patch 1 patch Transdermal Daily PRN Rupal Laguna MD olopatadine (PATANOL) 0.1% ophthalmic solution 1 drop 1 drop Both Eyes BID Rupal lomas MD 1 drop at 11/06/17 0912 ondansetron (ZOFRAN) injection 4 mg 4 mg Intravenous Q6H PRN Rupal Laguna MD 4 mg at 11/05/17 1745 pantoprazole (PROTONIX) DR tablet 40 mg 40 mg Oral QAM AC Rupal Laguna MD 40 mg at 11/06/17 0631 polyethylene glycol (MIRALAX) powder 17 g 17 g Oral BID Olegario Peng MD 17 g at 11/06/17 0905 polyethylene glycol (MIRALAX) powder 17 g 17 g Oral Daily PRN Rupal Laguna MD senna (SENOKOT) tablet 8.6 mg 8.6 mg Oral BID PRN Rupal Laguna MD ALLERGIES Allergies Allergen Reactions Lisinopril Pt states she does not remember what was the reaction she had to lisinopril. I asked her if it gave her a cough and she said "I cant remember, maybe it made me sick to my stomach". Naproxen Omeprazole FAMILY HISTORY family history includes Cancer in her sister; Diabetes in some other family members. SOCIAL HISTORY The pt reports that she has never smoked. She has never used smokeless tobacco. She report s that she does not drink alcohol. REVIEW OF SYSTEMS Fourteen point review of symptoms was performed. Pertinent positive and negatives per HPI. and All other systems were reviewed and were negative. PHYSICAL EXAM Temp: 36.8 C (98.2 F) BP: 182/85 Pulse: 76 Resp: 18 SpO2: 98 % (oxygen flow down to 1 l /m) on Wt. Admission: Weight: 87.2 kg (192 lb 3.9 oz) Gen Get - alert, cooperative and no distress Head - Normocephalic, without obvious abnormality, atraumatic Eyes - PERRL, conjunctiva/corneas clear, EOM's intact both eyes ENT - mucous membranes moist Neck - very hemodialysis line in the right neck with dressing clean and dry Lungs - no wheezes or rales and unlabored breathing Heart - normal rate and regular rhythm Abdomen - soft and nondistended Skin - no rashes, no jaundice Neurologic - Alert and oriented. CN II-XII grossly intact. Diagnostic Studies: Laboratory studies and imaging were personally reviewed by me. Chemistry: Lab Results Component Value Date WBC 9.9 11/06/2017 WBC 14.0 (H) 11/05/2017 WBC 13.9 (H) 11/04/2017 Lab Results Component Value Date HGB 9.0 (L) 11/06/2017 HGB 8.3 (L) 11/05/2017 HGB 7.9 (L) 11/04/2017 Lab Results Component Value Date HCT 26.5 (L) 11/06/2017 HCT 24.9 (L) 11/05/2017 HCT 24.1 (L) 11/04/2017 Lab Results Component Value Date PLT 176 11/06/2017 PLT Adequate 11/06/2017 PLT 154 11/05/2017 Lab Results Component Value Date NA 139 11/06/2017 NA 135 (L) 11/05/2017 NA 135 (L) 11/04/2017 Lab Results Component Value Date K 3.9 11/06/2017 K 4.4 11/05/2017 K 3.9 11/04/2017 Lab Results Component Value Date CO2 28 11/06/2017 CO2 28 11/05/2017 CO2 27 11/04/2017 Lab Results Component Value Date CL 105 11/06/2017 CL 101 11/05/2017 CL 102 11/04/2017 Lab Results Component Value Date GLU 108 11/06/2017 GLU 130 (H) 11/05/2017 GLU 143 (H) 11/04/2017 Lab Results Component Value Date BUN 30 (H) 11/06/2017 BUN 28 (H) 11/05/2017 BUN 43 (H) 11/04/2017 Lab Results Component Value Date CREA 2.40 (H) 11/06/2017 CREA 1.88 (H) 11/05/2017 CREA 2.38 (H) 11/04/201711/03 chest x-ray: IMPRESSION - Prominent consolidation is reidentified involving the central mid and lower lung zones bilaterally. Right internal jugular approach central catheter tip terminates in the mid right atrium. IMPRESSION: 1. End-stage renal disease 4/5 in need of a more permanent dialysis catheter= PLAN: 1. Have talked with Dr. Moseley, and the plan is to remove the patient's current dialysis cat heter today after her run of HD 2. Will plan to place a tunneled hemodialysis catheter on Wednesday in the operating room. We discussed placement of catheter on right or left chest wall. Risks and possible complicati ons including bleeding, infection, pneumothorax, hemothorax, catheter/line infection or occl usion, cardiac arrhthmia, damage to the heart or lungs was explained. No guarantees given o r implied. The patient agreed to proceed with surgery. Electronically Signed by: Nora Leo MD, 11/06/2017 16:07 [facility] opi Muñoz, DO - 11/02/2017 3:45 PM PST [facility] [address], [place] [id number] NEPHROLOGY CONSULT Pt. Name/Age/: Ara Tilley 72 y.o. 1945 Med. Record Number: [id number] Date of admission: 11/01/2017 Reason for consultation: Anorexia and probable Stage V CKD Referring Provider: Melyssa Laguna MD HPI: Asked to see this pleasant 72 YO female whom I saw 1 month ago. Get arently, she was found down at home yesterday hypothermic to 88F, hypoglycemic with BG 35 mg/dl and was given supplemental IV glucose, D50W. She was admitted here with CHF and Stage IV CKD last month. Yesterday, due to her azotemia and CKD she was transferred to the [facility] here last evening. She has repeatedly required IV dextrose overnight. She i s tearful, sad, and dysphoric this morning. She was confused about how rigid of a renal diet she should be on. Apparently, she states that all of her food tastes terrible she has both a cardboard and metallic taste to her food . She has very little appetite and states that she is losing weight. She denies hiccups or nausea with this. Incidentally, as the day went on she had fever and chills with temp. to 102. 1/4 blood cultures drawn earlier today are growing gram-positive cocci in chains to be ID'd. I had a long talk with Ara that my gut feeling is that she is uremic, malnourished and t hat she would be better served on outpatient hemodialysis this point. I previously had disc ussed outpatient CAPD and HD with her. However, apparently, her mother of ESRD and was on CAPD which gives her bad memories. She is really very despondent today, and her son is at the bedside. She will not really rule out HD tomorrow but is agreeable to reconsidering it. Currently she has fever, chills, and back pain and doesn't feel well. Her UA does show some pyuria with 50-100 WBC, (+) leukocyte esterase, and 5-10 epithelial cells. Her CXR do es show mild CM, PAST MEDICAL HISTORY: 1. Type 2 DM x 30 years per the pt with retinopathy, nephropathy, and possibly neuropathy. 2. Hypertension x 10 years per the pt. 3. Normochromic, normocytic anemia suspicious for anemia secondary to CKD? 4. probable SHPTH, 2to CKD . 5. Hyperlipidemia treated with a statin Rx, unknown duration per the pt. PAST SURGICAL HISTORY: 1. DAYNE with incidental appendectomy, in her "30's." 2. Tonsillectomy, ~age 11. 3. Laser Surgery , both eyes, last 2015, per the pt. Outpatient Prescriptions Marked as Taking for the 11/01/17 encounter (Hospital Encounter) Medication Sig Dispense Refill amLODIPine (NORVASC) 10 MG tablet Take 1 tablet by mouth Daily. 50 tablet 0 artificial tears (AKWA TEARS) ophthalmic ointment Place into both eyes every hour as n eeded for Dry Eyes. atorvaSTATin (LIPITOR) 20 mg tablet Take 20 mg by mouth nightly. calcium-vitamin D (CALCIUM 600-D) 600 mg-400 units per tablet Take 1 tablet by mouth 2 times daily. Chlorhexidine Gluconate 4 % SOLN Apply topically. Use one capful mixed in [address] and scrub wound daily or as directed. furosemide (LASIX) 80 mg tablet Take 1 tablet by mouth Daily. 50 tablet 0 gabapentin (NEURONTIN) 100 mg capsule Take 200 mg by mouth 2 times daily. Morning and e vening insulin glargine (LANTUS) 100 units/mL injection (vial) Take 20 units SQ each morning i ncreasing to home regimen(30 units) for increasing blood sugar 0 levothyroxine (SYNTHROID, LEVOTHROID) 75 MCG tablet Take 75 mcg by mouth every morning (before breakfast). loratadine (CLARITIN) 10 mg tablet Take 1 tablet by mouth Daily as needed for Allergies . 30 tablet losartan (COZAAR) 25 mg tablet Take 1 tablet by mouth Daily. 50 tablet 0 Misc. Throat Products (OASIS MOISTURIZING MOUTHWASH MT) Take 1 oz by mouth 2 times maite y. olopatadine (PATANOL) 0.1% ophthalmic solution Place 1-2 drops into both eyes 2 times d aily. pantoprazole (PROTONIX) 40 mg tablet Take 40 mg by mouth every morning (before breakfas t). UNABLE TO FIND Med Name: Cadoexomer Iodine 0.9 % gel. Apply a small amount to affected area as directed during dressing changes. Allergies Allergen Reactions Levofloxacin Lisinopril Pt states she does not remember what was the reaction she had to lisinopril. I asked her if it gave her a cough and she said "I cant remember, maybe it made me sick to my stomach". Naproxen Omeprazole SOCIAL HISTORY: Smoking: Doesn't smoke tobacco, but smokes cannabis almost daily. ETOH: denies. Single; lives independently, in [place]. FAMILY HISTORY: Father: in his 70's of AMI, also had Type 2 DM, PAD, and was s/p bilateral BKA's. Mother: of cxs of ESRD from Type 2 DM, and also had HBP. 5 Brothers: 2 as infants, 2 are alive and in good health, and 1 is alive but has DJ D in his legs. 3 Sisters: 1 at age 21 of a "ruptured intraabdominal organ." 1 sister is alive and has Type [...] depression, or suicidal ideation. PHYSICAL EXAMINATION: BP 148/58 | Pulse 92 | Temp (!) 38.9 C (102 F) (Bladder) | Resp 24 | Ht 1.727 m (5' 8") | Wt 87.2 kg (192 lb 3.9 oz) | SpO2 97% | BMI 29.23 kg/m Intake/Output Summary (Last 24 hours) at 11/02/17 1545 Last data filed at 11/02/17 1112 Gross per 24 hour Intake 1295 ml Output 2025 ml Net -730 ml General: This is a well-developed, thin 72 YO female who is alert and oriented x3, and in NAD. HEENT: Normocephalic. Pupils are 3 mm / 3 mm and reactive. EOMI. Fundoscopic exam was not performed. Posterior pharynx is clear, without injection. Neck: JVP's are 6- 7 cm at 45, no thyromegaly. Cardiovascular: Regular rate and rhythm, with no S3, S4, murmur or rub. Lungs: CTA in all gaytan. No rales or wheezes. Abdominal: Soft, flat, nontender, normoactive bowel sounds, no organomegaly, no guarding, no bru it. Extremities: no edema, clubbing, cyanosis, or asterixis. Neurological: Nonfocal, nonlateralizing. Lab Results Component Value Date NA 137 11/02/2017 K 4.3 11/02/2017 CL 104 11/02/2017 CO2 23 (L) 11/02/2017 BUN 53 (H) 11/02/2017 CREA 3.54 (H) 11/02/2017 GFRNONAA 13 (L) 11/02/2017 GLU 79 11/02/2017 CALCIUM 8.7 11/02/2017 PHOS 4.8 (H) 11/02/2017 MG 2.2 11/02/2017 Lab Results Component Value Date WBC 8.8 11/02/2017 HGB 9.2 (L) 11/02/2017 HCT 27.2 (L) 11/02/2017 PLT 174 11/02/2017 MCV 89.4 11/02/2017 NEUPCT 78.9 11/02/2017 LYMPCT 14.6 (L) 11/02/2017 MONPCT 4.3 11/02/2017 EOSPCT 1.6 11/02/2017 UA: Lab Results Component Value Date SPECIFICGRAV 1.010 11/02/2017 COLORUA Yellow 11/02/2017 CLARITYUA Hazy (A) 11/02/2017 PHUR 6.0 11/02/2017 PROTUA 100 mg/dL (A) 11/02/2017 BLOODU Small (A) 11/02/2017 GLUCOSEU Negative 11/02/2017 KETONES Negative 11/02/2017 IMPRESSION 1. Stage V CKD, likely secondary to diabetic glomerulosclerosis + hypertension--clinically , she appears malnourished and uremic? 2. Possible sepsis--differential diagnosis includes pyelonephritis, bronchopneumonia versu s other source? 3. Hypertension--good control. 4. Anemia secondary to CKD--would benefit from BOYD therapy to target Hb 10-11 g/dl 5. Type II DM, requiring insulin, with nephropathy and retinopathy and possibly neuropathy --currently hypoglycemic. 6. SHPTH secondary to #1. 7. Hyperlipidemia--on statin therapy. 8. Probable protein calorie malnutrition--secondary to #1. 9. Situational depression? Recommendations 1. Again, had a diplomatic, lengthy, detailed discussion with Ara and her son Azael castillo I think she should begin outpatient hemodialysis. She wishes to think about it overnight at the end of discussion. I think improving her azotemia would improve her background nutri tion, and help her to mount a better post-immune response. 2. I discussed with Dr. Peng, in light of positive blood cultures she will begin broad -spectrum antibiotics IV this PM 3. Will check her TSat , Ferritin, and if satisfactory will begin BOYD therapy to improve h er anemia. 4. Given the current picture, she may benefit from starting with a temporary IJ [place] so that she can ambulate. This can be converted to a tunneled one later and permanent AVF con struction could be performed at later date. All questions were answered in detail to the pa aly and her family. 5. I did attempt to underscore to Ara that once she is over the acute illness she may b e feeling better. Also, I underscored that there are patients described in the literature who have lived 20-30 years on outpatient hemodialysis, albeit at a younger age. [facility] CC: Jam Hurt D.O., [facility] Olegario Peng M.D. ose Monterroso V RDN - 11/02/2017 1:48 PM PSTAssociated Order(s): IP CONSULT TO NUTRITION SERVICESFormattin g of this note might be different from the original. NUTRITION THERAPY NOTE Summary: Met with pt's family today to discuss issues related to a renal diet. Written gu idelines for restricting sodium, potassium and phosphorous were provided and discussed. The guidelines also encouraged adequate protein to meet her assessed needs and CHO control for controlling BG. (noted in EMR she has received MNT during a recent hospitalization) Pt was sleeping and not feeling well enough to participate. Will f/u prior to discharge to help her understand foods allowed and foods to limit for dialysis. Currently her oral intak e is poor, eating <25% of meals while here. Estimated Energy and Protein Needs: (based on 70 kg) Kcal needs: 1358-0290 Kcals/day Protein needs:75-90 grams of protein/day Fluid goal:5873-2105 cc fluid per day, restriction for HD Nutrition Plan of Care: Nutrition Diagnosis: Food and nutrition knowledge deficit related to renal failure and maikel cook need for HD as evidenced by pt's family's questions and comments. Interventions: 1. Diet guidelines provided as noted above 2. Will adjust diet to include preferences/tolerances and provide nutritional supplement ti d Nutrition Goals: 1. Adequate oral intake to meet assessed energy and protein needs 2. Good understanding of renal diet issues with her finance considerations in mind (there w as concern noted in EMR about not having financial resources for diet recommendations) Monitor: 1. Overall intake 2. Pt and family questions F/u in 1 days. Available as needed, ext [phone] Assessment: Diet Order: For your reference, current, active order is: Diet consistent carb; potassium 3 gm K; Effective Now Intake: Labs: Recent Labs 11/02/17 0741 11/02/17 0019 NA 137 136 K 4.3 4.3 CL 104 104 BUN 53* 56* CREA 3.54* 3.76* MG 2.2 2.3 PHOS 4.8* -- Anthropometrics: Height: 172.7 cm (5' 8") Weight: 87.2 kg (192 lb 3.9 oz) Wt Readings from Last 3 Encounters: 11/02/17 87.2 kg (192 lb 3.9 oz) 10/05/17 83.2 kg (183 lb 6.8 oz) Body mass index is 29.23 kg/m. Weight change: First: 87.2 kg (11/01/17 2147)Last: 87.2 kg (11/02/17 0400)Difference: 0kg Electronically Signed by: JOSE MONTERROSO RDN 11/02/2017 13:49 docu mented in this encounter Miscellaneous Notes Goals of Care - Dalia Salcido MSW - 11/10/2017 10:17 AM PSTGOALS OF CARE NOTE Participants: Who was present? Patient Does patient have capacity?: Yes Understanding of your illness: What is your understanding now of where you are with your illness?: Stable Information preferences: How much information about what is likely to be ahead with your illness would you like to h ave? Patient wants to be fully informed Prognosis: What did you communicate to the patient regarding illness? Stable Goals/Hopes: If your health situation worsens, what are your most important goals? Be spiritually and emotionally at peace, Not be a burden and Have my medical decisions resp ected Most important to her is that she not be a burden, saying that she doesn't want to put her family through difficult times. One of her goals is to see her son again. She hasn't seen tello alvares in 23 years. He is due to be released from longterm next year and she hopes to see him after that. Fears/Worries: What are your biggest fears and worries about the future with your health? Burdening others She noted that pain is not something that bothers her. Her baseline pain is 6-7/10. Another concern is not being able to be as spontaneous now that she is on dialysis. She values fara barreto able to pick up attendant and go to the [facility] in [place], and the idea of planning a t rip and planning her dialysis there, etc I s going to be an adjustment. Function: None of the above Tradeoffs: If you become sicker, how much are you willing to go through for the possibility of gaining more time? Be in the ICU, Be uncomfortable, Have a feeding tube and Live in a group home Family: How much do your proxy and family know about your priorities and wishes? Some discussion but incomplete Goals and Plan of Medical Care: Some limitations on diagnostic treatment of condition- balanced with quality of life JENNIFER Fontanez 11/10/17 10:17 lan of Care - Deepa Pham, MEAT BONER - 11/09/2017 4:14 PM PSTProblem: Patient Care Overview (Adult) Goal: Care Team Goals & Evaluation PROBLEM-RELATED GOALS: 1. Nikki will maintain blood sugar greater than 60 by 11/06/17 2. Nikki will mainatin normothermic core temperature by 10/27/17 3. Nikki will maintain adequate urine outout of > 30ml/hr 4. Nikki will be free from falls during hospitalization 5. Ara will maintain adequate oxygenation via oximetry with SpO2 >90 by 11/11/17. 6. Ara will have breath sounds consistent with baseline function throughout stay and rev erse airway bronchospasm when indicated. Reevaluate goal by 11/11 STRATEGY TO ACHIEVE GOALS: - Monitor blood sugar and administer medications as ordered - Monitor temperature - Monitor urine output - Use assistive devices as needed - Monitor saturations via oximetry and titrate to order as indicated. - Administer respiratory medications as ordered Goal Evaluation: Pt is on room air with a SpO2 of 98 % and a heart rate of 72. Breath sounds are clear Pt has a good, nonproductive cough. Pt has a unlabored, pattern regular, depth regular, no shortness of breath reported. No prn treatment required this shift lan of Care - Mercedes bunch, Pita Escobedo RN - 11/09/2017 2:00 PM PSTDischarge Planning: Order for home health services obtained. TEJAL contacted [facility] in [facility] ([phone]) regarding new referral. Patient is followed by MARLYN Womack at [facility], and [facility] is not able to admit to services without an MD to [facility]. TEJAL then contacted [facility] who states that the Dr. Hurt will follow the patient, how ever he is out of the office until 11/22, thus will not be able to sign orders until that dutch e. TEJAL called [facility] and informed of MD to follow and faxed referral with c onfirmation of receipt placed in ghost chart. TEJAL then reached out to the Public Health Nurse at [facility] Emili Cueva [phone] who states that she is able to see the patient in her home setting and monitor things such a s blood pressure, medication management, and assist the patient with resources for food, tra nsportation, etc. Emili informed this CM that she can make a home visit to the patient massimo courtney 11/10/17 @ 1130 and will also assist the patient with transportation to the patient's [facility] dialysis appointment tomorrow at 1300. TEJAL faxed medical records to Emili at [facility] ( f:[phone]) with confirmation of receipt placed in ghost chart. CM to patient room to discuss plan. Patient agreeable and verbalized understanding that nurse will be at her home at 1130 tomorrow. Electronically signed by: Pita Alexander RN 11/09/2017 17:36 11/10/17 @ 1000: CM received call from Public Health Nurse Emili confirming that she did rec eive the information sent via fax and that she will be visiting the patient in her home toda y at 1130. Emili denies any additional information needed from this CM at this time.Electro nically signed by Pita Alexander RN at 11/10/2017 11:27 AM PSTPlan [facility] - Tamara Moreira RRT - 11/09/2017 5:35 AM PSTProblem: Patient Care Overview (Adult) Goal: Care Team Goals & Evaluation PROBLEM-RELATED GOALS: 1. Nikki will maintain blood sugar greater than 60 by 11/06/17 2. Nikki will mainatin normothermic core temperature by 10/27/17 3. Nikki will maintain adequate urine outout of > 30ml/hr 4. Nikki will be free from falls during hospitalization 5. Ara will maintain adequate oxygenation via oximetry with SpO2 >90 by 11/07/17. 6. Ara will have breath sounds consistent with baseline function throughout stay and rev erse airway bronchospasm when indicated. Reevaluate goal by 11/07/17. STRATEGY TO ACHIEVE GOALS: - Monitor blood sugar and administer medications as ordered - Monitor temperature - Monitor urine output - Use assistive devices as needed - Monitor saturations via oximetry and titrate to order as indicated. - Administer respiratory medications as ordered Goal Evaluation: Nikki slept throughout the night with no signs of respiratory distress noted, SpO2: 97 % on room air. No prn treatments taken. lan [facility] - Cathi Rodriguez RN - 11/09/2017 1:58 AM PSTProblem: Patient Care Overview (Adult) Goal: Care Team Goals & Evaluation PROBLEM-RELATED GOALS: 1. Nikki will maintain blood sugar greater than 60 by 11/06/17 2. Nikki will mainatin normothermic core temperature by 10/27/17 3. Nikki will maintain adequate urine outout of > 30ml/hr 4. Nikki will be free from falls during hospitalization 5. Ara will maintain adequate oxygenation via oximetry with SpO2 >90 by 11/07/17. 6. Ara will have breath sounds consistent with baseline function throughout stay and rev erse airway bronchospasm when indicated. Reevaluate goal by 11/07/17. STRATEGY TO ACHIEVE GOALS: - Monitor blood sugar and administer medications as ordered - Monitor temperature - Monitor urine output - Use assistive devices as needed - Monitor saturations via oximetry and titrate to order as indicated. - Administer respiratory medications as ordered Outcome: Improving Goal Evaluation: A&O x4, CMS intact however pt c/o chronic numbness/tingling present in her hands and feet, drsg to cath site is CDI, vitals stable, HR reg, lungs clear on RA, bowel tones active (last BM was 11-07-17) bowel protocol meds refused this shift, up ambulating to the bathroom voidi ng c/y urine w/o difficulty, SCD's in place, calls appropriately and is able to make needs k nown. Nikki c/o 6/10 pain to her RU chest; medicated w/1 [place] (5's) PRN; appeared to be effective as pt slept well between cares. lan of Care - India Chou RN - 11/09/2017 1:00 AM PSTProblem: Patient Care Overview (Adult) Goal: Care Team Goals & Evaluation PROBLEM-RELATED GOALS: 1. Nikki will maintain blood sugar greater than 60 by 11/06/17 2. Nikki will mainatin normothermic core temperature by 10/27/17 3. Nikki will maintain adequate urine outout of > 30ml/hr 4. Nikki will be free from falls during hospitalization 5. Ara will maintain adequate oxygenation via oximetry with SpO2 >90 by 11/07/17. 6. Ara will have breath sounds consistent with baseline function throughout stay and rev erse airway bronchospasm when indicated. Reevaluate goal by 11/07/17. STRATEGY TO ACHIEVE GOALS: - Monitor blood sugar and administer medications as ordered - Monitor temperature - Monitor urine output - Use assistive devices as needed - Monitor saturations via oximetry and titrate to order as indicated. - Administer respiratory medications as ordered Goal Evaluation: Nikki is a&O x4. Nikki is frustrated today, and sad at times. Nikki received dialysis today star ting at 8 am this morning. Dressing is CDI. Nikki is on a general diet, tolerating it well en couraged to eat balanced diet due to previous malnutrion. 1200 fluid restriction maintained. BS monitored (167 and 139) 2 units insulin administered this morning. Reports mild pain in right upper chest from incision, relief noted with 1 [place]. Trace edema in BLE. Independen t in room. Calls appropriately to make needs known. IV removed intact with no complication s noted. AVS and RX reviewed with patient, verbalized understanding. Stressed the importanc e of pt needing to eat. Escorted out in wheelchair with staff. Discharged home with [place] driving her. Nikki's spirits were lifted this afternoon and she seemed much happier and gl ad to go home. lan of Care - Jessie Monterroso RN - 11/08/2017 8:14 PM PSTProblem: Patient Care Overview (Adult) Goal: Care Team Goals & Evaluation PROBLEM-RELATED GOALS: 1. Nikki will maintain blood sugar greater than 60 by 11/06/17 2. Nikki will mainatin normothermic core temperature by 10/27/17 3. Nikki will maintain adequate urine outout of > 30ml/hr 4. Nikki will be free from falls during hospitalization 5. Ara will maintain adequate oxygenation via oximetry with SpO2 >90 by 11/07/17. 6. Ara will have breath sounds consistent with baseline function throughout stay and rev erse airway bronchospasm when indicated. Reevaluate goal by 11/07/17. STRATEGY TO ACHIEVE GOALS: - Monitor blood sugar and administer medications as ordered - Monitor temperature - Monitor urine output - Use assistive devices as needed - Monitor saturations via oximetry and titrate to order as indicated. - Administer respiratory medications as ordered Goal Evaluation: Patient extremely tearful, sad, depressed and lonely. Positive reinforcement continually g ivmaik. Case management asked to visit with patient after surgery to discuss financial need. Patient sent case management away and she will try again tomorrow. Patient had 2 visitors after surgery. Comfort care will be discussed with patient tomorrow. While being NPO patie nt's BG ranged from 217-232 mg/dL. Pain managed with administration of [place] 5-325 mg once after surgery. lan of [facility] - Yina Altman, RUPA - 11/08/2017 4:28 PM PSTProblem: Patient Care Overview (Adult) Goal: Care Team Goals & Evaluation PROBLEM-RELATED GOALS: 1. Nikki will maintain blood sugar greater than 60 by 11/06/17 2. Nikki will mainatin normothermic core temperature by 10/27/17 3. Nikki will maintain adequate urine outout of > 30ml/hr 4. Nikki will be free from falls during hospitalization 5. Ara will maintain adequate oxygenation via oximetry with SpO2 >90 by 11/07/17. 6. Ara will have breath sounds consistent with baseline function throughout stay and rev erse airway bronchospasm when indicated. Reevaluate goal by 11/07/17. STRATEGY TO ACHIEVE GOALS: - Monitor blood sugar and administer medications as ordered - Monitor temperature - Monitor urine output - Use assistive devices as needed - Monitor saturations via oximetry and titrate to order as indicated. - Administer respiratory medications as ordered Outcome: Improving Goal Evaluation: Nikki was weaned back to room air. No prn treatments needed. PEP used with encouragement. lan of [facility] - Pita Echavarria RN - 11/08/2017 3:10 PM PSTDischarge Planning: TEJAL received call from Jossie at [facility] in [place], [place] inquiring about patient d ischarge status. Jossie also inquiring about the patient's hemodialysis and whether or not it has been set up at the facility in [place]. TEJAL contacted [facility] and confirmed that the patient has been "admitted" to their center and will have her first dialysis Friday 11/10 @ 1300. CM placed in EPIC discharge follow up to show on AVS. CM to patient room at the request of the RN as patient/family asked to speak with someone a bout finances. CM to patient room to discuss plans for discharge. Patient resting in bed a nd 2 female visitors present. CM introduced herself and patient states to CM "I'm not shayna g to a group home". CM discussed follow up with dialysis as she is new to HD. CM informe d patient that this CM has been in contact with dialysis in [place]. Patient states "Ther e is one on the res.". CM confirmed that there is a [facility] located on the [facility] ion and that this CM has been in contact with them. Patient then stated to this CM "if you already knew they were there then why did you ask me about it?". At that point CM was dismi ssed from room by patient. CM returned call to [facility] at [facility] and informed that the patient has adamantly refus ed SNF at discharge. Disposition: Home with outpatient hemodialysis follow up. Electronically signed by: Pita Alexander RN 11/08/2017 15:41 p Note - John Leo MD - 11/08/2017 1:36 PM PSTOPERATIVE NOTE Pt. Name/Age/: Ara Tilley 72 y.o. 1945 [facility]. Record Number: [id number] Date of admission: 11/01/2017 Date of Operation/Procedure: 11/08/2017 Pre-Op Diagnosis Codes: end stage renal disease POSTOP DIAGNOSIS: Post-Op Diagnosis Codes: * End stage renal disease on dialysis (HCC) [N18.6, Z99.2] Surgeon: Nora Leo MD All Source Intelligence Technician(s): none Anesthesia Provider(s): Anesthesiologist: Vinnie Last MD Anesthesia Type: General Procedure(s): Tunneled Hemodialysis Catheter Placement Operative Indications: Ara Tilley is a 72 y.o. year old female who presents with ESRD on dialysis in need of a more permanent HD line. The patient was counseled and consente d to proceed. Operative Findings: 28cm tunneled HD catheter placed into right internal jugular vein PROCEDURE: The surgery was reviewed with the patient in the pre-operative holding area. All questio ns were answered. The proposed incision site possibilities were indicated to the patient. The patient was brought to the operating room after the nurse had confirmed the patient iden tification, patient allergies, and consent for signatures and procedure. The patient was p laced in the supine position on the operating table and General anesthesia was achieved. T he patient was positioned in the supine position, both arms tucked with appropriate padding and SCDs in place. The bilateral upper anterior chest, neck, and arm were prepared with ChloraPrep and draped in the usual fashion. A 28cm HD catheter was obtained. With the patient in the Trendelenbu rg position, utilizing the provided introducer needle, the right internal jugular vein was c annulated under ultrasound guidance. A guidewire was passed without difficulty and the needl e was removed. Fluoroscopy confirmed satisfactory position of the guidewire in the right atr ium. A small incision was made in the skin at the level of the guidewire. The skin, subcutaneous tissue beneath the inferior third of the right clavicle was infiltra rich with local anesthetic. A 5mm incision transverse, parallel, and inferior to the lateral third of the right clavicle was performed.The proposed track from the subcutaneous pocket t o the guidewire exit site was anesthetized. A tunneler was used in a retro-grade fashion th rough the subcutaneous tissue from the pocket to the guidewire. The dilator and sheath was p assed over the guidewire. The guidewire and dilator were removed and a provided catheter was inserted through the she ath as the sheath was carefully withdrawn. Fluoroscopy again confirmed satisfactory position of the catheter and the catheter under fluoroscopic guidance was retracted into the superio r vena cava/atria junction. The port was flushed with 5cc (1000 units/ml) heparin solution and placed within the subcut aneous pocket. Fluoroscopy again confirmed satisfactory position. Thecatheter was secured to the skin in 2 locations with 3-0 nylon suture. Hemostasis was verified. The wound in the ne ck was closed with an interupted subcuticular 4-0 Monocryl suture. Skin glue was applied ov er the wound. Biopatch, folded 4x4 and Tegaderm were placed over the catheter. Counts were correct at the end of the procedure. The patient tolerated the procedure well, was extubat ed, and transferred to the recovery room in stable condition. Estimated blood loss: 10 ml Transfused: no Specimen (s): * No specimens in log * Complications: none Disposition/condition: PACU, hemodynamically stable Electronically Signed by: Nora Leo MD, 11/08/2017 13:36 [facility] rief Op Note - Nora Leo MD - 11/08/2017 1:34 PM PSTFormatting of this note might be different from the orig inal. Brief Operative Note Ara Tilley 72 y.o. female 1945 [id number] Proc. Date 11/08/2017 Preop Dx end stage renal disease Postop Dx * End stage renal disease on dialysis (HCC) [N18.6, Z99.2] Procedure Tunneled Hemodialysis Catheter Placement Anesthesia General Surgeon Nora Leo MD - Primary Public Health Analyst EBL 10cc Findings 28cm tunneled HD catheter placed into right internal jugular vein Complications none Specimens * No specimens in log * Drains Electronically signed by: Nora Leo MD 11/08/2017 13:34 [facility]ron[facility] signed by Nora Leo MD at 2017 1:35 PM PSTPlan of Care - Francisca Matos RN - 11/08/2017 6:05 AM PSTProblem: Patie nt Care Overview (Adult) Goal: Care Team Goals & Evaluation PROBLEM-RELATED GOALS: 1. Nikki will maintain blood sugar greater than 60 by 11/06/17 2. Nikki will mainatin normothermic core temperature by 10/27/17 3. Nikki will maintain adequate urine outout of > 30ml/hr 4. Nikki will be free from falls during hospitalization 5. Ara will maintain adequate oxygenation via oximetry with SpO2 >90 by 11/07/17. 6. Ara will have breath sounds consistent with baseline function throughout stay and rev erse airway bronchospasm when indicated. Reevaluate goal by 11/07/17. STRATEGY TO ACHIEVE GOALS: - Monitor blood sugar and administer medications as ordered - Monitor temperature - Monitor urine output - Use assistive devices as needed - Monitor saturations via oximetry and titrate to order as indicated. - Administer respiratory medications as ordered Outcome: Improving Goal Evaluation: Patient is a/o. VSS, except BP's have been high. Patient reports numbness to bilateral clements ds and feet (baseline). Patient is saline locked to the LFA. Dressing where IJ line was in (now removed) is CDI. Patient has trace edema to the bilateral ankle and feet. Patient is on 1L of O2. Patietn has active bowel tones and last BM was 11/07/2017. Patient denies pain. Marlyn lu is NPO after midnight. Patient had no injuries or falls during this shift. lan of Care - Tamara Pérez RRT - 11/08/2017 5:49 AM PSTProblem: Patient Care Overview (Adult) Goal: Care Team Goals & Evaluation PROBLEM-RELATED GOALS: 1. Nikki will maintain blood sugar greater than 60 by 11/06/17 2. Nikki will mainatin normothermic core temperature by 10/27/17 3. Nikki will maintain adequate urine outout of > 30ml/hr 4. Nikki will be free from falls during hospitalization 5. Ara will maintain adequate oxygenation via oximetry with SpO2 >90 by 11/07/17. 6. Ara will have breath sounds consistent with baseline function throughout stay and rev erse airway bronchospasm when indicated. Reevaluate goal by 11/07/17. STRATEGY TO ACHIEVE GOALS: - Monitor blood sugar and administer medications as ordered - Monitor temperature - Monitor urine output - Use assistive devices as needed - Monitor saturations via oximetry and titrate to order as indicated. - Administer respiratory medications as ordered Goal Evaluation: Nikki did not take any prn treatment this shift, she uses her PEP device well and states she is using on own. Breath sounds are equal and mostly clear throughout with slightly diminish ed aeration noted in bases. SpO2: 96 % on 1 liters/minute nasal cannula. lan of Care - Markie Monterroso RN - 11/07/2017 8:01 PM PSTProblem: Patient Care Overview (Adult) Goal: Care Team Goals & Evaluation PROBLEM-RELATED GOALS: 1. Nikki will maintain blood sugar greater than 60 by 11/06/17 2. Nikki will mainatin normothermic core temperature by 10/27/17 3. Nikki will maintain adequate urine outout of > 30ml/hr 4. Nikki will be free from falls during hospitalization 5. Ara will maintain adequate oxygenation via oximetry with SpO2 >90 by 11/07/17. 6. Ara will have breath sounds consistent with baseline function throughout stay and rev erse airway bronchospasm when indicated. Reevaluate goal by 11/07/17. STRATEGY TO ACHIEVE GOALS: - Monitor blood sugar and administer medications as ordered - Monitor temperature - Monitor urine output - Use assistive devices as needed - Monitor saturations via oximetry and titrate to order as indicated. - Administer respiratory medications as ordered Goal Evaluation: Resumed care toward end of shift. BG 210 mg/dL; 4 units of lispro administered. Called ap propriately after urinating so urine could be collected for 24 hour urine study. Denied terry n. lan of Care - Vero toure, Wilbur Alvares RN - 11/07/2017 2:50 PM PSTProblem: Patient Care Overview (Adult) Goal: Care Team Goals & Evaluation PROBLEM-RELATED GOALS: 1. Nikki will maintain blood sugar greater than 60 by 11/06/17 2. Nikki will mainatin normothermic core temperature by 10/27/17 3. Nikki will maintain adequate urine outout of > 30ml/hr 4. Nikki will be free from falls during hospitalization 5. Ara will maintain adequate oxygenation via oximetry with SpO2 >90 by 11/07/17. 6. Ara will have breath sounds consistent with baseline function throughout stay and rev erse airway bronchospasm when indicated. Reevaluate goal by 11/07/17. STRATEGY TO ACHIEVE GOALS: - Monitor blood sugar and administer medications as ordered - Monitor temperature - Monitor urine output - Use assistive devices as needed - Monitor saturations via oximetry and titrate to order as indicated. - Administer respiratory medications as ordered Outcome: Unchanged Goal Evaluation: Pt is alert and oriented x4 and reports chronic back pain, but denied pain medicine this A M. Pt is independent in the room with a 24 hour urine collection set up in place. Pt has bee n instructed to have staff empty urine hat for collection. Pt is encouraged to walk in the h alls with assistance with equipment (oxygen on 2L per NC). Pt lungs are clear and equal thro ughout. Bowel tones are active and audible in all quadrants. Last BM 11/07/17. Pt dressing to right neck is dry and intact, with a small amount of dried drainage. Pt calls appropriately for assistance and remains free of falls. lan of [facility] - Tamara Moreira, RUPA - 11/07/2017 3:14 AM PSTProblem: Patient Care Overview (Adult) Goal: Care Team Goals & Evaluation PROBLEM-RELATED GOALS: 1. Nikki will maintain blood sugar greater than 60 by 11/06/17 2. Nikki will mainatin normothermic core temperature by 10/27/17 3. Nikki will maintain adequate urine outout of > 30ml/hr 4. Nikki will be free from falls during hospitalization 5. Ara will maintain adequate oxygenation via oximetry with SpO2 >90 by 11/07/17. 6. Ara will have breath sounds consistent with baseline function throughout stay and rev erse airway bronchospasm when indicated. Reevaluate goal by 11/07/17. STRATEGY TO ACHIEVE GOALS: - Monitor blood sugar and administer medications as ordered - Monitor temperature - Monitor urine output - Use assistive devices as needed - Monitor saturations via oximetry and titrate to order as indicated. - Administer respiratory medications as ordered Goal Evaluation: Nikki has not taken any prn treatments, SpO2: 97 % on 1 liters/minute nasal cannula, fair eff ort with PEP therapy with much encouragement given for use on own. lan [facility] - Artur Diamond RN - 11/07/2017 2:20 AM PSTProblem: Patient Care Overview (Adult) Goal: Care Team Goals & Evaluation PROBLEM-RELATED GOALS: 1. Nikki will maintain blood sugar greater than 60 by 11/06/17 2. Nikki will mainatin normothermic core temperature by 10/27/17 3. Nikki will maintain adequate urine outout of > 30ml/hr 4. Nikki will be free from falls during hospitalization 5. Ara will maintain adequate oxygenation via oximetry with SpO2 >90 by 11/07/17. 6. Ara will have breath sounds consistent with baseline function throughout stay and rev erse airway bronchospasm when indicated. Reevaluate goal by 11/07/17. STRATEGY TO ACHIEVE GOALS: - Monitor blood sugar and administer medications as ordered - Monitor temperature - Monitor urine output - Use assistive devices as needed - Monitor saturations via oximetry and titrate to order as indicated. - Administer respiratory medications as ordered Outcome: Improving Goal Evaluation: A&O to baseline. VSS. Able to make needs known. Denies pain. No fa lls or injury reported. Had dialysis previous shift. Internal jugular dialysis access was d/c'd per order. Dressing has small amount of dried drainage. lan of Care - Villa posadas, Wilbur Alvares RN - 11/06/2017 6:53 PM PSTProblem: Patient Care Overview (Adult) Goal: Care Team Goals & Evaluation PROBLEM-RELATED GOALS: 1. Nikki will maintain blood sugar greater than 60 by 11/06/17 2. Nikki will mainatin normothermic core temperature by 10/27/17 3. Nikki will maintain adequate urine outout of > 30ml/hr 4. Nikki will be free from falls during hospitalization 5. Ara will maintain adequate oxygenation via oximetry with SpO2 >90 by 11/07/17. 6. Ara will have breath sounds consistent with baseline function throughout stay and rev erse airway bronchospasm when indicated. Reevaluate goal by 11/07/17. STRATEGY TO ACHIEVE GOALS: - Monitor blood sugar and administer medications as ordered - Monitor temperature - Monitor urine output - Use assistive devices as needed - Monitor saturations via oximetry and titrate to order as indicated. - Administer respiratory medications as ordered Outcome: Improving Goal Evaluation: Pt CBGs remained above 100 all shift. Pt lungs sounds are clear and equal in all gaytan an terior. Pt VSS on 2L O2 per NC. Urinary output remains above 30mL/hr. Pt is mod I in her rowdy m, with bed alarm active. Pt calls appropriately for assistance. Pt remains free of falls. eICU Note - Vinnie Klein RN - 11/06/2017 1:33 PM PSTDialysis completed. Pt tolerated well. SBP in the 170's uf 2212 , NET OFF 2000. Catheters flushed and 1.5 mL/ 1500 units of Heparin instilled in each p ort. lan of Care - Artur Clemente, RN - 11/06/2017 1:49 AM PSTProblem: Patient Care Overview (Adult) Goal: Care Team Goals & Evaluation PROBLEM-RELATED GOALS: 1. Nikki will maintain blood sugar greater than 60 by 11/06/17 2. Nikki will mainatin normothermic core temperature by 10/27/17 3. Nikki will maintain adequate urine outout of > 30ml/hr 4. Nikki will be free from falls during hospitalization 5. Ara will maintain adequate oxygenation via oximetry with SpO2 >90 by 11/07/17. 6. Ara will have breath sounds consistent with baseline function throughout stay and rev erse airway bronchospasm when indicated. Reevaluate goal by 11/07/17. STRATEGY TO ACHIEVE GOALS: - Monitor blood sugar and administer medications as ordered - Monitor temperature - Monitor urine output - Use assistive devices as needed - Monitor saturations via oximetry and titrate to order as indicated. - Administer respiratory medications as ordered Outcome: Improving Goal Evaluation: A&OX4. VSS, except for elevated BP. Able to make needs known. Pain is managed with PO meds. No falls or injury reported. lan of Care - Bry Victor, RUPA - 11/05/2017 10:55 PM PSTProblem: Patient Care Overview (Adult) Goal: Care Team Goals & Evaluation PROBLEM-RELATED GOALS: 1. Nikki will maintain blood sugar greater than 60 by 11/06/17 2. Nikki will mainatin normothermic core temperature by 10/27/17 3. Nikki will maintain adequate urine outout of > 30ml/hr 4. Nikki will be free from falls during hospitalization 5. Ara will maintain adequate oxygenation via oximetry with SpO2 >90 by 11/07/17. 6. Ara will have breath sounds consistent with baseline function throughout stay and rev erse airway bronchospasm when indicated. Reevaluate goal by 11/07/17. STRATEGY TO ACHIEVE GOALS: - Monitor blood sugar and administer medications as ordered - Monitor temperature - Monitor urine output - Use assistive devices as needed - Monitor saturations via oximetry and titrate to order as indicated. - Administer respiratory medications as ordered Goal Evaluation: Patient doing better. On room air sating 94%. Doing PEP on her own as well. No prn neb andrew atments needed or given. Will continue to monitor and treat as needed. lan [facility] - Danni Bowman RN - 11/05/2017 6:07 PM PSTProblem: Patient Care Overview (Adult) Goal: Care Team Goals & Evaluation PROBLEM-RELATED GOALS: 1. Nikki will maintain blood sugar greater than 60 by 11/06/17 2. Nikki will mainatin normothermic core temperature by 10/27/17 3. Nikki will maintain adequate urine outout of > 30ml/hr 4. Nikki will be free from falls during hospitalization 5. Ara will maintain adequate oxygenation via oximetry with SpO2 >90 by 11/07/17. 6. Ara will have breath sounds consistent with baseline function throughout stay and rev erse airway bronchospasm when indicated. Reevaluate goal by 11/07/17. STRATEGY TO ACHIEVE GOALS: - Monitor blood sugar and administer medications as ordered - Monitor temperature - Monitor urine output - Use assistive devices as needed - Monitor saturations via oximetry and titrate to order as indicated. - Administer respiratory medications as ordered Outcome: Improving Goal Evaluation: Patient alert and oriented x4, free from falls/injury, calls appropriately to make needs k nown. Patient did not require PRN pain medication throughout the shift, PRN antiemetic given for nausea this evening. Echo completed today at bedside. lan of [facility] - Liam Goodwin, MEAT BONER - 11/05/2017 10:05 AM PSTProblem: Patient Care Overview (Adult) Goal: Care Team Goals & Evaluation PROBLEM-RELATED GOALS: 1. Nikki will maintain blood sugar greater than 60 by 11/02/17 2. Nikki will mainatin normothermic core temperature by 11/01/17 3. Nikki will maintain adequate urine outout of > 30ml/hr 4. Nikki will be free from falls during hospitalization 5. Ara will maintain adequate oxygenation via oximetry with SpO2 >90 by 11/07/17. 6. Ara will have breath sounds consistent with baseline function throughout stay and rev erse airway bronchospasm when indicated. Reevaluate goal by 11/07/17. STRATEGY TO ACHIEVE GOALS: - Monitor blood sugar and administer medications as ordered - Monitor temperature - Monitor urine output - Use assistive devices as needed - Monitor saturations via oximetry and titrate to order as indicated. - Administer respiratory medications as ordered RESTRAINT-RELATED GOALS: STRATEGIES TO ACHIEVE RESTRAINT GOALS: Outcome: Improving Goal Evaluation: Nikki seemed irritated when asked to do PEP, says doing on her own. No PRN tx required. She was 92% on 1LPM and denies SOB. She seemed emotionally upset and appeared to be crying. lan [facility] - Collette Dunn - 11/05/2017 7:25 AM PSTFaxed referral to [facility]. Electronically signed by: Collette Shanks 11/05/2017 7:25 Received a call from Anayeli @ [facility] stating she will be on stand by IF Nikki needs to go her way. HD will need to be set up prior. This CM let Anayeli know that Nikki will probably discharge home. Electronically signed by: Collette Shanks 11/05/2017 12:45 [facility] - Gregg Castro RN - 11/05/2017 3:47 AM PSTProblem: Patient Care Overview (Adult) Goal: Care Team Goals & Evaluation PROBLEM-RELATED GOALS: 1. Nikki will maintain blood sugar greater than 60 by 11/02/17 2. Nikki will mainatin normothermic core temperature by 11/01/17 3. Nikki will maintain adequate urine outout of > 30ml/hr 4. Nikki will be free from falls during hospitalization 5. Ara will maintain adequate oxygenation via oximetry with SpO2 >90 by 11/07/17. 6. Ara will have breath sounds consistent with baseline function throughout stay and rev erse airway bronchospasm when indicated. Reevaluate goal by 11/07/17. STRATEGY TO ACHIEVE GOALS: - Monitor blood sugar and administer medications as ordered - Monitor temperature - Monitor urine output - Use assistive devices as needed - Monitor saturations via oximetry and titrate to order as indicated. - Administer respiratory medications as ordered RESTRAINT-RELATED GOALS: STRATEGIES TO ACHIEVE RESTRAINT GOALS: Outcome: Improving Goal Evaluation: A&OX4. VSS. Able to make needs known. Pain is managed with PO meds . No falls or injury reported. eICU Note - Nick Guallpa RN - 11/04/2017 10:01 PM PSTDialysis treatment complete. 1094mLs pull out, with 210mL s returned. VSS, pt tolerated procedure well. Blood cultures collected from the patients art erial line while on dialysis. No other changes. Nick Guallpa RN lan of Care - Bry Lucero RRT - 11/04/2017 9:48 PM PSTProblem: Patient Care Overview (Adult) Goal: Care Team Goals & Evaluation PROBLEM-RELATED GOALS: 1. Nikki will maintain blood sugar greater than 60 by 11/02/17 2. Nikki will mainatin normothermic core temperature by 11/01/17 3. Nikki will maintain adequate urine outout of > 30ml/hr 4. Nikki will be free from falls during hospitalization 5. Ara will maintain adequate oxygenation via oximetry with SpO2 >90 by 11/07/17. 6. Ara will have breath sounds consistent with baseline function throughout stay and rev erse airway bronchospasm when indicated. Reevaluate goal by 11/07/17. STRATEGY TO ACHIEVE GOALS: - Monitor blood sugar and administer medications as ordered - Monitor temperature - Monitor urine output - Use assistive devices as needed - Monitor saturations via oximetry and titrate to order as indicated. - Administer respiratory medications as ordered RESTRAINT-RELATED GOALS: STRATEGIES TO ACHIEVE RESTRAINT GOALS: Goal Evaluation: Patient doing well. ON dialysis now. Had to be placed back on O2 at 1 l/m nasal cannula. S ating 94. BS clear anteriorly and diminished in bases. No prn neb treatments needed/given. W ill continue to monitor and treat as needed. lan [facility] - Tamara Lawson, MEAT BONER - 11/04/2017 5:59 PM PSTProblem: Patient Care Overview (Adult) Goal: Care Team Goals & Evaluation PROBLEM-RELATED GOALS: 1. Nikki will maintain blood sugar greater than 60 by 11/02/17 2. Nikki will mainatin normothermic core temperature by 11/01/17 3. Nikki will maintain adequate urine outout of > 30ml/hr 4. Nikki will be free from falls during hospitalization 5. Ara will maintain adequate oxygenation via oximetry with SpO2 >90 by 11/07/17. 6. Ara will have breath sounds consistent with baseline function throughout stay and rev erse airway bronchospasm when indicated. Reevaluate goal by 11/07/17. STRATEGY TO ACHIEVE GOALS: - Monitor blood sugar and administer medications as ordered - Monitor temperature - Monitor urine output - Use assistive devices as needed - Monitor saturations via oximetry and titrate to order as indicated. - Administer respiratory medications as ordered RESTRAINT-RELATED GOALS: STRATEGIES TO ACHIEVE RESTRAINT GOALS: Goal Evaluation: Nikki was weaned to room air today, once dialysis was started O2 reapplied by nursing staff, no prn Albuterol neb given, using PEP on her own. lan of [facility] Ashlie Valverde RN - 11/04/2017 4:00 PM PSTHD initiated per NxStage machine, RIJ dialysis access, rates as ordered. lan of [facility] Queenie Walker RN - 11/04/2017 3:17 PM PSTProblem: Patient Car e Overview (Adult) Goal: Care Team Goals & Evaluation PROBLEM-RELATED GOALS: 1. Nikki will maintain blood sugar greater than 60 by 11/02/17 2. Nikki will mainatin normothermic core temperature by 11/01/17 3. Nikki will maintain adequate urine outout of > 30ml/hr 4. Nikki will be free from falls during hospitalization 5. Ara will maintain adequate oxygenation via oximetry with SpO2 >90 by 11/07/17. 6. Ara will have breath sounds consistent with baseline function throughout stay and rev erse airway bronchospasm when indicated. Reevaluate goal by 11/07/17. STRATEGY TO ACHIEVE GOALS: - Monitor blood sugar and administer medications as ordered - Monitor temperature - Monitor urine output - Use assistive devices as needed - Monitor saturations via oximetry and titrate to order as indicated. - Administer respiratory medications as ordered RESTRAINT-RELATED GOALS: STRATEGIES TO ACHIEVE RESTRAINT GOALS: Outcome: Improving Goal Evaluation: Patient is alert and oriented x4. ICU transfer this morning. VSS. Adequate output. Denies pain. She is to receive HD this afternoon. Up with SBA in room. BG checks completed, insulin coverage as needed. Call light and bed alarm in place, makes needs known. lan of Care - Sharon Rosado RN - 11/04/2017 2:38 PM PSTProblem: Discharge Planning Goal: Patient will be discharged in a safe manner Outcome: Hollis Melton from [facility] called to check up on patient so some verbal clinicals given h er, letting her know that patient moved down to floor care status this AM, to room 307 and g ave her Collette, DP's number to call if any more updates are needed. She appreciated the update d clinicals. Electronically signed by: Sharon Rosado RN 11/04/2017 14:38 lan of Care - Gregg Guallpa RN - 11/04/2017 2:15 AM PSTProblem: Patient Care Overview (Adult) Goal: Care Team Goals & Evaluation PROBLEM-RELATED GOALS: 1. Nikki will maintain blood sugar greater than 60 by 11/02/17 2. Nikki will mainatin normothermic core temperature by 11/01/17 3. Nikki will maintain adequate urine outout of > 30ml/hr 4. Nikki will be free from falls during hospitalization 5. Ara will maintain adequate oxygenation via oximetry with SpO2 >90 by 11/07/17. 6. Ara will have breath sounds consistent with baseline function throughout stay and rev erse airway bronchospasm when indicated. Reevaluate goal by 11/07/17. STRATEGY TO ACHIEVE GOALS: - Monitor blood sugar and administer medications as ordered - Monitor temperature - Monitor urine output - Use assistive devices as needed - Monitor saturations via oximetry and titrate to order as indicated. - Administer respiratory medications as ordered RESTRAINT-RELATED GOALS: STRATEGIES TO ACHIEVE RESTRAINT GOALS: Outcome: Unchanged Goal Evaluation: Pt is A&Ox4, VSS, afebrile, complains of a 7/10 low back pain. Hydr ocodone given x2. Dialysis running per doctors orders, at the start of treatment patients ar terial line read -400 with alarms prompts going off and arterial and venous lines were switc hed around, no arterial access reads -50s and is reading smoothly. Pt is resting comfortably , will continue to monitor. Nick Guallpa, RN 11/04/2017 lan of Care - Pro Myles Chaplain - 11/03/2017 4:10 PM PST Spiritual Care Ara Tilley is a 72 y.o. female who is admitted for Hypothermia Hypoglycemia needs AV shunt. Spiritual Evaluation: Traditional and Rastafarian Spiritual Intervention: Active listening, pastoral presence. Spiritual Outcomes: Patient was grateful for the Test Preparation Tutor's visit. Spiritual Goals / Follow-up: Will see the patient as requested. If there are any other spiritual care issues that arise, please contact early breastfeeding care specialist. lan of Care - Venkatesh Rosario, MEAT BONER - 11/03/2017 11:49 AM PSTProblem: Patient Care Overview (Adult) Goal: Care Team Goals & Evaluation PROBLEM-RELATED GOALS: 1. Nikki will maintain blood sugar greater than 60 by 11/02/17 2. Nikki will mainatin normothermic core temperature by 11/01/17 3. Nikki will maintain adequate urine outout of > 30ml/hr 4. Nikki will be free from falls during hospitalization 5. Ara will maintain adequate oxygenation via oximetry with SpO2 >90 by 11/07/17. 6. Ara will have breath sounds consistent with baseline function throughout stay and rev erse airway bronchospasm when indicated. Reevaluate goal by 11/07/17. STRATEGY TO ACHIEVE GOALS: - Monitor blood sugar and administer medications as ordered - Monitor temperature - Monitor urine output - Use assistive devices as needed - Monitor saturations via oximetry and titrate to order as indicated. - Administer respiratory medications as ordered RESTRAINT-RELATED GOALS: STRATEGIES TO ACHIEVE RESTRAINT GOALS: Outcome: Improving Goal Evaluation: BS rhonchi with basilar crackles but no wheezes, no prn Albuterol neb given, PEP started fo r airway clearance - pt works well with device, SpO2 96% on 2 lpm NC, no other interventions indicated at this time lan of Care - Steven mcgraw, Татьяна Alvares, RN - 11/03/2017 5:37 AM PSTProblem: Patient Care Overview (Adult) Goal: Care Team Goals & Evaluation PROBLEM-RELATED GOALS: 1. Nikki will maintain blood sugar greater than 60 by 11/02/17 2. Nikki will mainatin normothermic core temperature by 11/01/17 3. Nikki will maintain adequate urine outout of > 30ml/hr 4. Nikki will be free from falls during hospitalization 5. Ara will maintain adequate oxygenation via oximetry with SpO2 >90 by 11/07/17. 6. Ara will have breath sounds consistent with baseline function throughout stay and rev erse airway bronchospasm when indicated. Reevaluate goal by 11/07/17. STRATEGY TO ACHIEVE GOALS: - Monitor blood sugar and administer medications as ordered - Monitor temperature - Monitor urine output - Use assistive devices as needed - Monitor saturations via oximetry and titrate to order as indicated. - Administer respiratory medications as ordered RESTRAINT-RELATED GOALS: STRATEGIES TO ACHIEVE RESTRAINT GOALS: Outcome: Improving Goal Evaluation: Pt AOx4, tearful and frustrated c being in the hospital and current state of health. VSS. HR SR/RBBB c PACs. [place] controls chronic back pain well. Lungs very coarse c congested coug h. Pt required O2 overnight, RT now following. Lasix 80mg IVP given, UO moderate. NPO since midnight for possible permacath placement today. Pt c/o some nausea well controlled by zofra n. Ambulates c swaying gait, requires standby assist. D10 still infusing per order, BG >150 overnight. Will continue to monitor. lan of Care - Reynaldo Stewart RRT - 11/03/2017 4:34 AM PSTProblem: Patient Care Overview (Adult) Goal: Care Team Goals & Evaluation PROBLEM-RELATED GOALS: 1. Nikki will maintain blood sugar greater than 60 by 11/02/17 2. Nikki will mainatin normothermic core temperature by 11/01/17 3. Nikki will maintain adequate urine outout of > 30ml/hr 4. Nikki will be free from falls during hospitalization 5. Ara will maintain adequate oxygenation via oximetry with SpO2 >90 by 11/07/17. 6. Ara will have breath sounds consistent with baseline function throughout stay and rev erse airway bronchospasm when indicated. Reevaluate goal by 11/07/17. STRATEGY TO ACHIEVE GOALS: - Monitor blood sugar and administer medications as ordered - Monitor temperature - Monitor urine output - Use assistive devices as needed - Monitor saturations via oximetry and titrate to order as indicated. - Administer respiratory medications as ordered RESTRAINT-RELATED GOALS: STRATEGIES TO ACHIEVE RESTRAINT GOALS: Outcome: Improving Goal Evaluation: Overnight, Ara SpO2 96 % on nasal cannula at flow rate of 2 lpm NC decreased from 15 lpm NRB mask. No PRNs required. No SOB reported. RT will continue to m onitor and treat as indicated. lan of Care - Sofya Condon RRT - 11/02/2017 9:15 PM PSTProblem: Patient Care Overview (Adult) Goal: Care Team Goals & Evaluation PROBLEM-RELATED GOALS: 1. Nikki will maintain blood sugar greater than 60 by 11/02/17 2. Nikki will mainatin normothermic core temperature by 11/01/17 3. Nikki will maintain adequate urine outout of > 30ml/hr 4. Nikki will be free from falls during hospitalization 5. Ara will maintain adequate oxygenation via oximetry with SpO2 >90 by 11/07/17. 6. Ara will have breath sounds consistent with baseline function throughout stay and rev erse airway bronchospasm when indicated. Reevaluate goal by 11/07/17. STRATEGY TO ACHIEVE GOALS: - Monitor blood sugar and administer medications as ordered - Monitor temperature - Monitor urine output - Use assistive devices as needed - Monitor saturations via oximetry and titrate to order as indicated. - Administer respiratory medications as ordered RESTRAINT-RELATED GOALS: STRATEGIES TO ACHIEVE RESTRAINT GOALS: Goal Evaluation: RT was called due to desaturations noted 86% on 10 lpm NRB with humidifier and good pleth. Upon RT arrival, NRB placed on straight flowmeter at 15 lpm and changed probe to different finger. sao2 improved 99%, RN notified of findings. lan [facility] - Kristen Irving RN - 11/02/2017 6:22 PM PSTProblem: Patient Care Overview (Adult) Goal: Care Team Goals & Evaluation PROBLEM-RELATED GOALS: 1. Nikki will maintain blood sugar greater than 60 by 11/02/17 2. Nikki will mainatin normothermic core temperature by 11/01/17 3. Nikki will maintain adequate urine outout of > 30ml/hr 4. Nikki will be free from falls during hospitalization STRATEGY TO ACHIEVE GOALS: - Monitor blood sugar and administer medications as ordered - Monitor temperature - Monitor urine output - Use assistive devices as needed RESTRAINT-RELATED GOALS: STRATEGIES TO ACHIEVE RESTRAINT GOALS: Goal Evaluation: Nikki's last BG was 166. States pain to back is tolerable after norc o given this afternoon. No more emesis. Al removed at 1630 no void yet. ivf's infusing at 50mls/hr. NPO at midnight. Son staying at bedside. lan [facility] - Sharon Rosado RN - 11/02/2017 2:44 PM PSTProblem: Discharge Planning Goal: Patient will be discharged in a safe manner Outcome: Improving This CM met with patient, her spouse, and sisters' to discuss her d/c plan. Patient was sleeping so talked with her and family. Patient lives with her spouse in [place] and per one of the sister's, she has been statin g that she really is needing some HH PT to get stronger at home. Preference form was signed for [facility] and sticky note left requesting a HH RN P T referral order at discharge as well as a PT eval and treat once indicated, since family is also stating that she is needing a walker at home, and does not have one. Spouse reports that prior to admit Ara was independent at home with her ADL's and still drives, and uses no home 02 or CPAP. Sister stated that she was scheduled for her fistula placement on the , tomorrow, but e nded up in the hospital prior to this date. Her and her spouse just recently moved and so has only met with the [facility] RN meera Mao once and they feel she will need to be followed up closer since it is anticipat ed that she will be set up for new ongoing dialysis from here on out. She is planning on using [facility] in [place] for her dialysis needs once discharged. This CM called and spoke with Linh at [facility], and she confirmed that patient ch anged her PA to [facility] recently (called patient access and had Leatha change it in EPIC). She had just recently seen her PCP, Nan Bruno on Oct 07. Linh also stated that she gets her 11 meds there as well. Per Linh, the [facility] Rep went out to the home to do a safety eval on Oct 15 and f ound that patient lives on the 2nd story of the complex and she has lots of stairs to get in to her place and it has no handrails and bathroom is not handicapped accessible. Per the rep , patient is very unsteady on her feet, which he assessed there, and has been falling a lot in the last 6 months. Patient does have a cane per rep. Per Linh, they could arrange for Emili, their [facility] RN to go out more frequently if needed. Linh also stated that the new address where they are living was updated on Oct 01. Preference form for [facility] was signed today and placed in ghost chart. Dispo: Still pending, may need SNF rehab at first, although goal is to get her home at discharge w ith HH RN PT. CM to follow up with [facility]. CM to follow regarding PT eval recommendations. [facility] needing [facility] [place]. Electronically signed by: Sharon Rosado RN 11/02/2017 14:44 lan of Care - Rolan Collado RN - 11/02/2017 4:15 AM PSTProblem: Patient Care Overview (Adult) Goal: Care Team Goals & Evaluation PROBLEM-RELATED GOALS: 1. Nikki will maintain blood sugar greater than 60 by 11/02/17 2. Nikki will mainatin normothermic core temperature by 11/01/17 3. Nikki will maintain adequate urine outout of > 30ml/hr 4. Nikki will be free from falls during hospitalization STRATEGY TO ACHIEVE GOALS: - Monitor blood sugar and administer medications as ordered - Monitor temperature - Monitor urine output - Use assistive devices as needed RESTRAINT-RELATED GOALS: STRATEGIES TO ACHIEVE RESTRAINT GOALS: Outcome: Unchanged Goal Evaluation: Blood glucose greater than 100; continues to trend down. See lab results; No treatment ne eded for hypoglycemia/hyperglycemia. Remains normothermic 36.5-37C. Patient has remained in bed during shift, no falls. documented in this e ncounter Plan of Treatment + + +--------+ + + | Name | Type | Priori | Associated Diagnoses | Order Schedule | | | | ty | | | + + +--------+ + + | Referral to Home | Outpatient | Routin | CKD (chronic | Ordered: 11/09/2017 | | Health - OUTPATIENT | Referral | e | kidney disease) | | | | | | stage 5, GFR less | | | | | | than 15 ml/min (HCC) | | | | | | Type 2 DM with CKD | | | | | | stage 5 and | | | | | | hypertension (HCC) | | | | | | Acute hemodialysis | | | | | | encounter (HCC) | | + + +--------+ + + documented as of this encounter Procedures + +--------+ + + + | Procedure Name | Priori | Date/Time | Associated Diagnosis | Comments | | | ty | | | | + +--------+ + + + | LABS - EXTERNAL SCAN | | 11/11/2017 | | Results for this | | | | 12:00 AM | | procedure are in the | | | | PST | | results section. | + +--------+ + + + | POC GLUCOSE | Routin | 11/09/2017 | | Results for this | | | e | 11:47 AM | | procedure are in the | | | | PST | | results section. | + +--------+ + + + | DIFFERENTIAL, MANUAL | Routin | 11/09/2017 | | Results for this | | | e | 6:41 AM | | procedure are in the | | | | PST | | results section. | + +--------+ + + + | CBC WITH | Routin | 11/09/2017 | | Results for this | | DIFFERENTIAL | e | 6:41 AM | | procedure are in the | | | | PST | | results section. | + +--------+ + + + | BASIC METABOLIC | Routin | 11/09/2017 | | Results for this | | PANEL | e | 6:41 AM | | procedure are in the | | | | PST | | results section. | + +--------+ + + + | POC GLUCOSE | Routin | 11/08/2017 | | Results for this | | | e | 9:31 PM | | procedure are in the | | | | PST | | results section. | + +--------+ + + + | POC GLUCOSE | Routin | 11/08/2017 | | Results for this | | | e | 4:46 PM | | procedure are in the | | | | PST | | results section. | + +--------+ + + + | XR CHEST AP PORTABLE | STAT | 11/08/2017 | | Results for this | | | | 2:10 PM | | procedure are in the | | | | PST | | results section. | + +--------+ + + + | FL CENTRAL VENOUS | Routin | 11/08/2017 | | Results for this | | ACCESS DEVICE | e | 1:18 PM | | procedure are in the | | PLACEMENT | | PST | | results section. | + +--------+ + + + | INSERTION SHUNT | | 11/08/2017 | End stage renal | | | HEMODIALYSIS W/ | | 11:42 AM | disease on dialysis | | | PERMACATH | | PST | ([facility]) | | + +--------+ + + + | CREATININE | STAT | 11/08/2017 | | Results for this | | CLEARANCE, TEST | | 9:54 AM | | procedure are in the | | | | PST | | results section. | + +--------+ + + + | CREATININE, URINE, | STAT | 11/08/2017 | | Results for this | | 24HR | | 9:54 AM | | procedure are in the | | | | PST | | results section. | + +--------+ + + + | CREATININE | STAT | 11/08/2017 | | Results for this | | CLEARANCE, RESULT | | 9:54 AM | | procedure are in the | | | | PST | | results section. | + +--------+ + + + | POC GLUCOSE | Routin | 11/08/2017 | | Results for this | | | e | 6:57 AM | | procedure are in the | | | | PST | | results section. | + +--------+ + + + | SLIDE REVIEW, | Routin | 11/08/2017 | | Results for this | | PERIPHERAL SMEAR | e | 5:28 AM | | procedure are in the | | | | PST | | results section. | + +--------+ + + + | CBC WITH | Routin | 11/08/2017 | | Results for this | | DIFFERENTIAL | e | 5:28 AM | | procedure are in the | | | | PST | | results section. | + +--------+ + + + | BASIC METABOLIC | Routin | 11/08/2017 | | Results for this | | PANEL | e | 5:28 AM | | procedure are in the | | | | PST | | results section. | + +--------+ + + + | POC GLUCOSE | Routin | 11/07/2017 | | Results for this | | | e | 8:56 PM | | procedure are in the | | | | PST | | results section. | + +--------+ + + + | POC GLUCOSE | Routin | 11/07/2017 | | Results for this | | | e | 4:36 PM | | procedure are in the | | | | PST | | results section. | + +--------+ + + + | POC GLUCOSE | Routin | 11/07/2017 | | Results for this | | | e | 11:51 AM | | procedure are in the | | | | PST | | results section. | + +--------+ + + + | POC GLUCOSE | Routin | 11/07/2017 | | Results for this | | | e | 6:43 AM | | procedure are in the | | | | PST | | results section. | + +--------+ + + + | SLIDE REVIEW, | Routin | 11/07/2017 | | Results for this | | PERIPHERAL SMEAR | e | 5:55 AM | | procedure are in the | | | | PST | | results section. | + +--------+ + + + | CBC WITH | Routin | 11/07/2017 | | Results for this | | DIFFERENTIAL | e | 5:55 AM | | procedure are in the | | | | PST | | results section. | + +--------+ + + + | MAGNESIUM | Routin | 11/07/2017 | | Results for this | | | e | 5:55 AM | | procedure are in the | | | | PST | | results section. | + +--------+ + + + | BASIC METABOLIC | Routin | 11/07/2017 | | Results for this | | PANEL | e | 5:55 AM | | procedure are in the | | | | PST | | results section. | + +--------+ + + + | POC GLUCOSE | Routin | 11/06/2017 | | Results for this | | | e | 9:32 PM | | procedure are in the | | | | PST | | results section. | + +--------+ + + + | POC GLUCOSE | Routin | 11/06/2017 | | Results for this | | | e | 4:47 PM | | procedure are in the | | | | PST | | results section. | + +--------+ + + + | POC GLUCOSE | Routin | 11/06/2017 | | Results for this | | | e | 12:01 PM | | procedure are in the | | | | PST | | results section. | + +--------+ + + + | SLIDE REVIEW, | Routin | 11/06/2017 | | Results for this | | PERIPHERAL SMEAR | e | 6:42 AM | | procedure are in the | | | | PST | | results section. | + +--------+ + + + | CBC WITH | Routin | 11/06/2017 | | Results for this | | DIFFERENTIAL | e | 6:42 AM | | procedure are in the | | | | PST | | results section. | + +--------+ + + + | PHOSPHORUS | Routin | 11/06/2017 | | Results for this | | | e | 6:42 AM | | procedure are in the | | | | PST | | results section. | + +--------+ + + + | MAGNESIUM | Routin | 11/06/2017 | | Results for this | | | e | 6:42 AM | | procedure are in the | | | | PST | | results section. | + +--------+ + + + | BASIC METABOLIC | Routin | 11/06/2017 | | Results for this | | PANEL | e | 6:42 AM | | procedure are in the | | | | PST | | results section. | + +--------+ + + + | POC GLUCOSE | Routin | 11/06/2017 | | Results for this | | | e | 6:30 AM | | procedure are in the | | | | PST | | results section. | + +--------+ + + + | POC GLUCOSE | Routin | 11/05/2017 | | Results for this | | | e | 9:34 PM | | procedure are in the | | | | PST | | results section. | + +--------+ + + + | POC GLUCOSE | Routin | 11/05/2017 | | Results for this | | | e | 5:39 PM | | procedure are in the | | | | PST | | results section. | + +--------+ + + + | ECHO COMPLETE | Routin | 11/05/2017 | | Results for this | | | e | 3:58 PM | | procedure are in the | | | | PST | | results section. | + +--------+ + + + | POC GLUCOSE | Routin | 11/05/2017 | | Results for this | | | e | 11:52 AM | | procedure are in the | | | | PST | | results section. | + +--------+ + + + | POC GLUCOSE | Routin | 11/05/2017 | | Results for this | | | e | 6:39 AM | | procedure are in the | | | | PST | | results section. | + +--------+ + + + | CBC WITH | Routin | 11/05/2017 | | Results for this | | DIFFERENTIAL | e | 6:12 AM | | procedure are in the | | | | PST | | results section. | + +--------+ + + + | PHOSPHORUS | Routin | 11/05/2017 | | Results for this | | | e | 6:12 AM | | procedure are in the | | | | PST | | results section. | + +--------+ + + + | MAGNESIUM | Routin | 11/05/2017 | | Results for this | | | e | 6:12 AM | | procedure are in the | | | | PST | | results section. | + +--------+ + + + | BASIC METABOLIC | Routin | 11/05/2017 | | Results for this | | PANEL | e | 6:12 AM | | procedure are in the | | | | PST | | results section. | + +--------+ + + + | POC GLUCOSE | Routin | 11/04/2017 | | Results for this | | | e | 10:49 PM | | procedure are in the | | | | PST | | results section. | + +--------+ + + + | CULTURE, BLOOD | Routin | 11/04/2017 | | Results for this | | | e | 9:22 PM | | procedure are in the | | | | PST | | results section. | + +--------+ + + + | CULTURE, BLOOD | Routin | 11/04/2017 | | Results for this | | | e | 9:03 PM | | procedure are in the | | | | PST | | results section. | + +--------+ + + + | POC GLUCOSE | Routin | 11/04/2017 | | Results for this | | | e | 4:47 PM | | procedure are in the | | | | PST | | results section. | + +--------+ + + + | POC GLUCOSE | Routin | 11/04/2017 | | Results for this | | | e | 11:34 AM | | procedure are in the | | | | PST | | results section. | + +--------+ + + + | CBC WITH | Routin | 11/04/2017 | | Results for this | | DIFFERENTIAL | e | 4:19 AM | | procedure are in the | | | | PST | | results section. | + +--------+ + + + | C-REACTIVE PROTEIN | Add-On | 11/04/2017 | | Results for this | | | | 4:19 AM | | procedure are in the | | | | PST | | results section. | + +--------+ + + + | PHOSPHORUS | Routin | 11/04/2017 | | Results for this | | | e | 4:19 AM | | procedure are in the | | | | PST | | results section. | + +--------+ + + + | MAGNESIUM | Routin | 11/04/2017 | | Results for this | | | e | 4:19 AM | | procedure are in the | | | | PST | | results section. | + +--------+ + + + | BASIC METABOLIC | Routin | 11/04/2017 | | Results for this | | PANEL | e | 4:19 AM | | procedure are in the | | | | PST | | results section. | + +--------+ + + + | POC GLUCOSE | Routin | 11/04/2017 | | Results for this | | | e | 1:32 AM | | procedure are in the | | | | PST | | results section. | + +--------+ + + + | POC GLUCOSE | Routin | 11/03/2017 | | Results for this | | | e | 8:29 PM | | procedure are in the | | | | PST | | results section. | + +--------+ + + + | POC GLUCOSE | Routin | 11/03/2017 | | Results for this | | | e | 6:08 PM | | procedure are in the | | | | PST | | results section. | + +--------+ + + + | POC GLUCOSE | Routin | 11/03/2017 | | Results for this | | | e | 4:23 PM | | procedure are in the | | | | PST | | results section. | + +--------+ + + + | XR CHEST AP PORTABLE | STAT | 11/03/2017 | | Results for this | | | | 3:20 PM | | procedure are in the | | | | PST | | results section. | + +--------+ + + + | CULTURE, BLOOD | STAT | 11/03/2017 | | Results for this | | | | 3:06 PM | | procedure are in the | | | | PST | | results section. | + +--------+ + + + | POC GLUCOSE | Routin | 11/03/2017 | | Results for this | | | e | 2:16 PM | | procedure are in the | | | | PST | | results section. | + +--------+ + + + | POC GLUCOSE | Routin | 11/03/2017 | | Results for this | | | e | 12:26 PM | | procedure are in the | | | | PST | | results section. | + +--------+ + + + | POC GLUCOSE | Routin | 11/03/2017 | | Results for this | | | e | 10:45 AM | | procedure are in the | | | | PST | | results section. | + +--------+ + + + | CT CHEST WO CONTRAST | Routin | 11/03/2017 | | Results for this | | | e | 10:15 AM | | procedure are in the | | | | PST | | results section. | + +--------+ + + + | POC GLUCOSE | Routin | 11/03/2017 | | Results for this | | | e | 8:30 AM | | procedure are in the | | | | PST | | results section. | + +--------+ + + + | CULTURE, BLOOD | STAT | 11/03/2017 | | Results for this | | | | 8:12 AM | | procedure are in the | | | | PST | | results section. | + +--------+ + + + | CULTURE, | STAT | 11/03/2017 | | Results for this | | RESPIRATORY, LOWER, | | 7:27 AM | | procedure are in the | | SMEAR | | PST | | results section. | + +--------+ + + + | POC GLUCOSE | Routin | 11/03/2017 | | Results for this | | | e | 6:25 AM | | procedure are in the | | | | PST | | results section. | + +--------+ + + + | HEPATITIS A, B, C | Routin | 11/03/2017 | | Results for this | | PANEL, REFLEX | e | 5:02 AM | | procedure are in the | | | | PST | | results section. | + +--------+ + + + | HEPATITIS A IGM AB, | Routin | 11/03/2017 | | Results for this | | CONFIRM | e | 5:02 AM | | procedure are in the | | | | PST | | results section. | + +--------+ + + + | CBC WITH | Routin | 11/03/2017 | | Results for this | | DIFFERENTIAL | e | 5:02 AM | | procedure are in the | | | | PST | | results section. | + +--------+ + + + | PHOSPHORUS | Routin | 11/03/2017 | | Results for this | | | e | 5:02 AM | | procedure are in the | | | | PST | | results section. | + +--------+ + + + | MAGNESIUM | Routin | 11/03/2017 | | Results for this | | | e | 5:02 AM | | procedure are in the | | | | PST | | results section. | + +--------+ + + + | BASIC METABOLIC | Routin | 11/03/2017 | | Results for this | | PANEL | e | 5:02 AM | | procedure are in the | | | | PST | | results section. | + +--------+ + + + | POC GLUCOSE | Routin | 11/03/2017 | | Results for this | | | e | 4:09 AM | | procedure are in the | | | | PST | | results section. | + +--------+ + + + | POC GLUCOSE | Routin | 11/03/2017 | | Results for this | | | e | 12:45 AM | | procedure are in the | | | | PST | | results section. | + +--------+ + + + | POC GLUCOSE | Routin | 11/02/2017 | | Results for this | | | e | 10:17 PM | | procedure are in the | | | | PST | | results section. | + +--------+ + + + | POC GLUCOSE | Routin | 11/02/2017 | | Results for this | | | e | 7:42 PM | | procedure are in the | | | | PST | | results section. | + +--------+ + + + | CT ABDOMEN PELVIS WO | Routin | 11/02/2017 | | Results for this | | CONTRAST | e | 7:27 PM | | procedure are in the | | | | PST | | results section. | + +--------+ + + + | POC GLUCOSE | Routin | 11/02/2017 | | Results for this | | | e | 6:14 PM | | procedure are in the | | | | PST | | results section. | + +--------+ + + + | POC GLUCOSE | Routin | 11/02/2017 | | Results for this | | | e | 4:15 PM | | procedure are in the | | | | PST | | results section. | + +--------+ + + + | POC GLUCOSE | Routin | 11/02/2017 | | Results for this | | | e | 3:02 PM | | procedure are in the | | | | PST | | results section. | + +--------+ + + + | POC GLUCOSE | Routin | 11/02/2017 | | Results for this | | | e | 1:35 PM | | procedure are in the | | | | PST | | results section. | + +--------+ + + + | POC GLUCOSE | Routin | 11/02/2017 | | Results for this | | | e | 12:27 PM | | procedure are in the | | | | PST | | results section. | + +--------+ + + + | POC GLUCOSE | Routin | 11/02/2017 | | Results for this | | | e | 11:03 AM | | procedure are in the | | | | PST | | results section. | + +--------+ + + + | INFLUENZA A AND B | Routin | 11/02/2017 | | Results for this | | RNA, NAAT | e | 10:50 AM | | procedure are in the | | | | PST | | results section. | + +--------+ + + + | POC GLUCOSE | Routin | 11/02/2017 | | Results for this | | | e | 10:34 AM | | procedure are in the | | | | PST | | results section. | + +--------+ + + + | POC GLUCOSE | Routin | 11/02/2017 | | Results for this | | | e | 10:18 AM | | procedure are in the | | | | PST | | results section. | + +--------+ + + + | POC GLUCOSE | Routin | 11/02/2017 | | Results for this | | | e | 10:05 AM | | procedure are in the | | | | PST | | results section. | + +--------+ + + + | POC GLUCOSE | Routin | 11/02/2017 | | Results for this | | | e | 9:49 AM | | procedure are in the | | | | PST | | results section. | + +--------+ + + + | XR CHEST AP PORTABLE | Routin | 11/02/2017 | | Results for this | | | e | 8:14 AM | | procedure are in the | | | | PST | | results section. | + +--------+ + + + | CBC WITH | Routin | 11/02/2017 | | Results for this | | DIFFERENTIAL | e | 7:41 AM | | procedure are in the | | | | PST | | results section. | + +--------+ + + + | PREALBUMIN | Add-On | 11/02/2017 | | Results for this | | | | 7:41 AM | | procedure are in the | | | | PST | | results section. | + +--------+ + + + | PHOSPHORUS | Routin | 11/02/2017 | | Results for this | | | e | 7:41 AM | | procedure are in the | | | | PST | | results section. | + +--------+ + + + | MAGNESIUM | Routin | 11/02/2017 | | Results for this | | | e | 7:41 AM | | procedure are in the | | | | PST | | results section. | + +--------+ + + + | BASIC METABOLIC | Routin | 11/02/2017 | | Results for this | | PANEL | e | 7:41 AM | | procedure are in the | | | | PST | | results section. | + +--------+ + + + | URINALYSIS WITH | Routin | 11/02/2017 | | Results for this | | MICROSCOPIC WITH | e | 7:40 AM | | procedure are in the | | CULTURE IF INDICATED | | PST | | results section. | + +--------+ + + + | CULTURE, URINE | Routin | 11/02/2017 | | Results for this | | | e | 7:40 AM | | procedure are in the | | | | PST | | results section. | + +--------+ + + + | TROPONIN I | Routin | 11/02/2017 | | Results for this | | | e | 6:15 AM | | procedure are in the | | | | PST | | results section. | + +--------+ + + + | POC GLUCOSE | Routin | 11/02/2017 | | Results for this | | | e | 5:50 AM | | procedure are in the | | | | PST | | results section. | + +--------+ + + + | POC GLUCOSE | Routin | 11/02/2017 | | Results for this | | | e | 4:07 AM | | procedure are in the | | | | PST | | results section. | + +--------+ + + + | POC GLUCOSE | Routin | 11/02/2017 | | Results for this | | | e | 2:01 AM | | procedure are in the | | | | PST | | results section. | + +--------+ + + + | CBC WITH | Routin | 11/02/2017 | | Results for this | | DIFFERENTIAL | e | 12:30 AM | | procedure are in the | | | | PST | | results section. | + +--------+ + + + | CULTURE, BLOOD | STAT | 11/02/2017 | | Results for this | | | | 12:24 AM | | procedure are in the | | | | PST | | results section. | + +--------+ + + + | PROCALCITONIN, SERUM | Routin | 11/02/2017 | | Results for this | | | e | 12:19 AM | | procedure are in the | | | | PST | | results section. | + +--------+ + + + | TROPONIN I | Routin | 11/02/2017 | | Results for this | | | e | 12:19 AM | | procedure are in the | | | | PST | | results section. | + +--------+ + + + | CULTURE, BLOOD | STAT | 11/02/2017 | | Results for this | | | | 12:19 AM | | procedure are in the | | | | PST | | results section. | + +--------+ + + + | TSH | Routin | 11/02/2017 | | Results for this | | | e | 12:19 AM | | procedure are in the | | | | PST | | results section. | + +--------+ + + + | MAGNESIUM | Routin | 11/02/2017 | | Results for this | | | e | 12:19 AM | | procedure are in the | | | | PST | | results section. | + +--------+ + + + | BASIC METABOLIC | Routin | 11/02/2017 | | Results for this | | PANEL | e | 12:19 AM | | procedure are in the | | | | PST | | results section. | + +--------+ + + + | POC GLUCOSE | Routin | 11/02/2017 | | Results for this | | | e | 12:05 AM | | procedure are in the | | | | PST | | results section. | + +--------+ + + + | POC GLUCOSE | Routin | 11/01/2017 | | Results for this | | | e | 10:10 PM | | procedure are in the | | | | PST | | results section. | + +--------+ + + + | CULTURE, MRSA | Routin | 11/01/2017 | | Results for this | | | e | 9:46 PM | | procedure are in the | | | | PST | | results section. | + +--------+ + + + | IMAGING REPORT - | | 11/01/2017 | | Results for this | | EXTERNAL SCAN | | 12:00 AM | | procedure are in the | | | | PST | | results section. | + +--------+ + + + | ECG - EXTERNAL SCAN | | 11/01/2017 | | Results for this | | | | 12:00 AM | | procedure are in the | | | | PST | | results section. | + +--------+ + + + | LABS - EXTERNAL SCAN | | 10/25/2017 | | Results for this [...] XR CHEST 2 VIEWS | Routin | 02/10/2007 | | Results for this | | | e | 8:55 PM | | procedure are in the [...] for this | | | e | 5:30 PM | | procedure are in the [...] XR CHEST 2 VIEWS | Routin | 06/17/2006 | | Results for this | | | e | 5:35 PM | | procedure are in the | | | | PDT | | results section. | + +--------+ + + + | XR CHEST 2 VIEWS | Routin | 05/26/2006 | | Results for this | | | e | 4:50 PM | | procedure are in the | | | | PDT | | results section. | + +--------+ + + + documented in this encounter Results LABS - EXTERNAL SCAN (11/11/2017 12:00 AM PST) + + + | Narrative | Performed At | + + + | Ordered by an | | | unspecified provider. | | + + + POC Glucose (11/09/2017 11:47 AM PST) + +---------+ + + + | Component | Value | Ref Range | Performed | Pathologist | | | | | At | Signature | + +---------+ + + + | Glucose, | 139 (H) | 70 - 109 mg/dL | [...] ST. | [address] | [place] | [phone] | | [facility] | | [address] | | | - LABORATORY | | | | + + + + + Omi, Manual (11/09/2017 6:41 AM PST) + + + + + + | Component | Value | Ref Range | Performed | Pathologist | | | | | At | Signature | + + + + + + | % Segmented | 69.0 | 50.0 - 70.0 % | [facility] | | | | | | [facility] | | | Neutrophils | | | MEDICAL | | | | | | CENTER - | | | | | | LABORATORY | | + + + + + + | % | 21.0 | 20.0 - 40.0 % | [facility] | | | Lymphocytes | | | [facility] | | | | | | MEDICAL | | | | | | CENTER - | | | | | | LABORATORY | | + + + + + + | % Monocytes | 9.0 (H) | 1.0 - 6.0 % | [facility] | | | | | | [facility] | | | | | | MEDICAL | | | | | | CENTER - | | | | | | LABORATORY | | + + + + + + | % | 1.0 | 1.0 - 5.0 % | [facility] | | | Eosinophils | | | [facility] | | | | | | MEDICAL | | | | | | CENTER - | | | | | | LABORATORY | | + + + + + + | Absolute | 6.14 | 1.80 - 7.70 | [facility] | | | Segmented | | K/uL | [facility] | | | Neutrophils | | | MEDICAL | | | | | | CENTER - | | | | | | LABORATORY | | + + + + + + | Absolute | 1.87 | 1.00 - 3.40 | [facility] | | | Lymphocytes | | K/uL | [facility] | | | | | | MEDICAL | | | | | | CENTER - | | | | | | LABORATORY | | + + + + + + | Absolute | 0.80 | 0.00 - 0.80 | [facility] | | | Monocytes | | K/uL | [facility] | | | | | | MEDICAL | | | | | | CENTER - | | | | | | LABORATORY | | + + + + + + | Absolute | 0.09 | 0.00 - 0.50 | [facility] | | | Eosinophils | | K/uL | [facility] | | | | | | MEDICAL | | | | | | CENTER - | | | | | | LABORATORY | | + + + + + + | Total Cells | 100 | | [facility] | | | Counted | | | [facility] | | | | | | MEDICAL | | | | | | CENTER - | | | | | | LABORATORY | | + + + + + + | WBC | Normal | | [facility] | | | Morphology | | | [facility] | | | | | | MEDICAL | | | | | | CENTER - | | | | | | LABORATORY | | + + + + + + | Platelet | Normal | | [facility] | | | Morphology | | | [facility] | | | | | | MEDICAL | | | | | | CENTER - | | | | | | LABORATORY | | + + + + + + | Hypochromas | Slight (A) | (none) | [facility] | | | ia | | | [facility] | | [...] [address] | [place] | [phone] | | [facility] | | [address] | | | - LABORATORY | | | | + + + + + CBC with Differential (11/09/2017 6:41 AM PST) + + + + + + | Component | Value | Ref Range | Performed | Pathologist | | | | | At | Signature | + + + + + + | White Blood | 8.9 | 4.0 - 11.0 K/uL | [facility] | | | Cells | | | [facility] | | | | | | MEDICAL | | | | | | CENTER - | | | | | | LABORATORY | | + + + + + + | Red Blood | 2.94 (L) | 3.70 - 5.20 | [facility] | | | Cells | | M/uL | [facility] | | | | | | MEDICAL | | | | | | CENTER - | | | | | | LABORATORY | | + + + + + + | Hemoglobin | 8.9 (L) | 11.5 - 16.0 | [facility] | | | | | g/dL | [facility] | | | | | | MEDICAL | | | | | | CENTER - | | | | | | LABORATORY | | + + + + + + | Hematocrit | 26.3 (L) | 34.0 - 47.0 % | [...] + + + + | MCH | 30.3 | 28.0 - 35.0 pg | [facility] | | | | | | [facility] | | | | | | MEDICAL | | | | | | CENTER - | | | | | | LABORATORY | | + + + + + + | MCHC | 33.8 | 32.0 - 36.0 | [facility] | | | | | g/dL | [facility] | | | | | | MEDICAL | | | | | | CENTER - | | | | | | LABORATORY | | + + + + + + | RDW-CV | 13.9 | <15.0 % | [facility] | | | | | | [facility] | | | | | | MEDICAL | | | | | | CENTER - | | | | | | LABORATORY | | + + + + + + | Platelet | 182 | 140 - 440 K/uL | [facility] | | | Count | | | [facility] | | | | | | MEDICAL | | | | | | CENTER - | | | | | | LABORATORY | | + + + + + + | MPV | 8.4 | fL | [facility] | | | | | | [facility] | | | | | | MEDICAL | | | | | | CENTER - | | | | | | LABORATORY | | + + + + + + | % | 68.4 | 45.0 - 82.0 % | [facility] | | | Neutrophils | | | [facility] | | | | | | MEDICAL | | | | | | CENTER - | | | | | | LABORATORY | | + + + + + + | % | 20.9 | 20.0 - 45.0 % | [facility] | | | Lymphocytes | | | [facility] | | | | | | MEDICAL | | | | | | CENTER - | | | | | | LABORATORY | | + + + + + + | % Monocytes | 9.5 | 4.0 - 12.0 % | [facility] | | | | | | [facility] | | | | | | MEDICAL | | | | | | CENTER - | | | | | | LABORATORY | | + + + + + + | % | 0.8 | 0.0 - 5.0 % | [facility] | | | Eosinophils | | | [facility] | | | | | | MEDICAL | | | | | | CENTER - | | | | | | LABORATORY | | + + + + + + | % Basophils | 0.4 | 0.0 - 1.0 % | [facility] | | | | | | [facility] | | | | | | MEDICAL | | | | | | CENTER - | | | | | | LABORATORY | | + + + + + + | Absolute | 6.10 | 1.80 - 8.50 | [facility] | | | Neutrophils | | K/uL | [facility] | | | | | | MEDICAL | | | | | | CENTER - | | | | | | LABORATORY | | + + + + + + | Absolute | 1.90 | 0.60 - 3.20 | [facility] | | | Lymphocytes | | K/uL | [facility] | | | | | | MEDICAL | | | | | | CENTER - | | | | | | LABORATORY | | + + + + + + | Absolute | 0.80 | 0.00 - 1.00 | [facility] | [...] | | Basophils | | K/uL | [facility] | | | | | [...] [address] | [place] | [phone] | | [facility] | | [address] | | | - LABORATORY | | | | + + + + + Basic Metabolic Panel (11/09/2017 6:41 AM PST) + + + + + [...] + + + + | K | 3.2 (L) | 3.5 - 5.1 | [facility] | | | | | mmol/L | [facility] | | | | | | MEDICAL | | | | | | CENTER - | | | | | | LABORATORY | | + + + + + + | Cl | 99 | 98 - 109 mmol/L | [facility] | | | | | | [facility] | | | | | | MEDICAL | | | | | | CENTER - | | | | | | LABORATORY | | + + + + + + | CO2 | 27 | 24 - 31 mmol/L | [facility] | | | | | | [facility] | | | | | | MEDICAL | | | | | | CENTER - | | | | | | LABORATORY | | + + + + + + | Anion Gap | 9 | 3 - 16 mmol/L | [facility] | | | | | | [facility] | | | | | | MEDICAL | | | | | | CENTER - | | | | | | LABORATORY | | + + + + + + | Glucose | 167 (H) | 70 - 109 mg/dL | [facility] | | | | | | [facility] | | | | | | MEDICAL | | | | | | CENTER - | | | | | | LABORATORY | | + + + + + + | BUN | 29 (H) | 7 - 18 mg/dL | [facility] | | | | | | [facility] | | | | | | MEDICAL | | | | | | CENTER - | | | | | | LABORATORY | | + + + + + + | Creatinine | 2.99 (H) | 0.60 - 1.30 | [facility] | | | | | mg/dL | [facility] | | | | | | MEDICAL | | | | | | CENTER - | | | | | | LABORATORY | | + + + + + + | eGFR if not | 15 (L)Comment: | >=60 | [facility] | | | | GLOMERULAR FILTRATION | mL/min/1.73m2 | [facility] | | | YEMENI | RATE,ESTIMATED | | MEDICAL | | | | mL/min/1.23g8Heti than | | CENTER - | | [...] + + + + | BUN/Creatin | 9.7 | | [facility] | | | ine [...] [address] | [place] | [phone] | | [facility] | | [address] | | | - LABORATORY | | | | + + + + + POC Glucose (11/08/2017 9:31 PM PST) + +---------+ + + + | Component | Value | Ref Range | Performed | Pathologist | | | | | At | Signature | + +---------+ + + + | Glucose, | 330 (H) | 70 - 109 mg/dL | [...] [address] | [place] | [phone] | | [facility] | | [address] | | | - LABORATORY | | | | + + + + + POC Glucose (11/08/2017 4:46 PM PST) + +---------+ + + + | Component | Value | Ref Range | Performed | Pathologist | | | | | At | Signature | + +---------+ + + + | Glucose, | 232 (H) | 70 - 109 mg/dL | [...] [address] | [place] | [phone] | | [facility] | | [address] | | | - LABORATORY | | | | + + + + + XR Chest AP Portable (11/08/2017 2:10 PM PST) + + | Specimen | + + | | + + + + + | Narrative | Performed At | + + + | XR CHEST AP PORTABLE 11/08/2017 2:09 PM HISTORY: line placement. | [facility] | | COMPARISON: 11/10/2017 Findings: Decreasing consolidation is | | | reidentified involving the central mid and lower lung zones | | | bilaterally. Dual-lumen central catheter tip terminates in the mid | | | right atrium. No evidence of pneumothorax or pleural effusion. Aortic | | | calcifications are seen. Bones and soft tissues are unchanged. | | | IMPRESSION - Decreasing consolidation involving the central mid | | | and lower lung zones bilaterally. Dual lumen central catheter | | | tip terminates in the mid right atrium. Dictated and Signed by: | | | Itz Madsen MD Electronically signed: 11/08/2017 2:14 PM | | + + + + + | Procedure Note | + + | Julian, Rad Results In - 11/08/2017 2:17 PM PST XR CHEST AP PORTABLE 11/08/2017 2:09 PM | | | | HISTORY: line placement. | | | | COMPARISON: 11/10/2017 | | | | Findings: Decreasing consolidation is reidentified involving the central mid and | | lower lung zones bilaterally. Dual-lumen central catheter tip terminates in the | | mid right atrium. No evidence of pneumothorax or pleural effusion. Aortic | | calcifications are seen. Bones and soft tissues are unchanged. | | | | IMPRESSION - | | Decreasing consolidation involving the central mid and lower lung zones | | bilaterally. | | | | Dual lumen central catheter tip terminates in the mid right atrium. | | | | Dictated and Signed by: Itz Madsen MD | | Electronically signed: 11/08/2017 2:14 PM | + + + +---------+ + + | Performing | Address | City/State/Zipcode | Phone Number | | Organization | | | | + +---------+ + + | [facility] | | | | + +---------+ + + FL CVA Device Placement (11/08/2017 1:18 PM PST) + + | Specimen | + + | | + + + + + | Narrative | Performed At | + + + | No Radiologist interpretation, please see Chart Review. | [facility] | + + + + +---------+ + + | Performing | Address | City/State/Zipcode | Phone Number | | Organization | | | | + +---------+ + + | [facility] | | | | + +---------+ + + Creatinine Clearance, Result (11/08/2017 9:54 AM PST) + + + + + + | Component | Value | Ref Range | Performed | Pathologist | | | | | At | Signature | + + + + + + | Urine Time | 24 HR | | [facility] | | | | | | [facility] | | | | | | MEDICAL | | | | | | CENTER - | | | | | | LABORATORY | | + + + + + + | Urine | 1,470 | mL | [facility] | | | Volume | | | [facility] | | | | | | MEDICAL | | | | | | CENTER - | | | | | | LABORATORY | | + + + + + + | Height (IN) | 68 | in | [facility] | | | | | | [facility] | | | | | | MEDICAL | | | | | | CENTER - | | | | | | LABORATORY | | + + + + + + | Weight, lbs | 200 | lbs | [facility] | | | | | | [facility] | | | | | | MEDICAL | | | | | | CENTER - | | | | | | LABORATORY | | + + + + + + | Body | 2.04 | m2 | [facility] | | | Surface | | | [facility] | | | Area | | | MEDICAL | | | | | | CENTER - | | | | | | LABORATORY | | + + + + + + | Creatinine | 2.75 (H) | 0.60 - 1.30 | [facility] | | | | | mg/dL | [facility] | | | | | | MEDICAL | | | | | | CENTER - | | | | | | LABORATORY | | + + + + + + | Creatinine, | Comment: Creatinine, | 600 - 1,600 | [facility] | | | 24Hr Urine | Urine 24hr = 500 | mg/24hr | [facility] | | | | mg/24hrs | | MEDICAL | | | | | | CENTER - | | | | | | LABORATORY | | + + + + + + | CREATININE | 10.68 (L)Comment: This | 76.00 - 116.00 | [facility] | | | CLEARANCE | is an appended report. | mL/min | [facility] | | | | These results have been | | MEDICAL | | | | appended to a previously | | CENTER - | | | | final verified report. | | LABORATORY | | + + + + + + | Creatinine, | 34Comment: This is an | mg/dL | [facility] | | | Urine | appended report. These | | [facility] | | | | results have been | | MEDICAL | | | | appended to a previously | | CENTER - | | | | final verified report. | | LABORATORY | | + + + + + + + + | Specimen | + + | Urine - Urine | | specimen (specimen) | + + + + + + + | Performing | Address | City/State/Zipcode | Phone Number | | Organization | | | | + + + + + | [facility] | [address] | [place] | [phone] | | [facility] | | [address] | | | - LABORATORY | | | | + + + + + Creatinine, Urine, 24Hr (11/08/2017 9:54 AM PST) + +---------+ + + + | Component | Value | Ref Range | Performed | Pathologist | | | | | At | Signature | + +---------+ + + + | Urine Time | 24 HR | | [facility] | | | | | | [facility] | | | | | | MEDICAL | | | | | | CENTER - | | | | | | LABORATORY | | + +---------+ + + + | Urine | 1,470 | mL | [facility] | | | Volume | | | [facility] | | | | | | MEDICAL | | | | | | CENTER - | | | | | | LABORATORY | | + +---------+ + + + | Creatinine, | 34 | mg/dL | [facility] | | | Urine | | | [facility] | | | | | | MEDICAL | | | | | | CENTER - | | | | | | LABORATORY | | + +---------+ + + + | Creatinine, | 500 (L) | 600 - 1,800 | [facility] | | | Urine | | mg/24hrs | [facility] | | | (mg/24hr) | | | MEDICAL | | | | | | CENTER - | | | | | | LABORATORY | | + +---------+ + + + + + | Specimen | + + | Urine - Urine | | specimen (specimen) | + + + + + + + | Performing | Address | City/State/Zipcode | Phone Number | | Organization | | | | + + + + + | [facility] | [address] | [place] | [phone] | | [facility] | | [address] | | | - LABORATORY | | | | + + + + + POC Glucose (11/08/2017 6:57 AM PST) + +---------+ + + + | Component | Value | Ref Range | Performed | Pathologist | | | | | At | Signature | + +---------+ + + + | Glucose, | 217 (H) | 70 - 109 mg/dL | [...] [address] | [place] | [phone] | | [facility] | | [address] | | | - LABORATORY | | | | + + + + + Slide Review, Peripheral Smear (11/08/2017 5:28 AM PST) + + + + + + | Component | Value | Ref Range | Performed | Pathologist | | | | | At | Signature | + + + + + + | RBC | Normal | | [facility] | | | Morphology | | | [facility] | | | | | | [facility] | | | | | | CENTER - | | | | | | LABORATORY | | + + + + + + | WBC | Normal | | [facility] | | | Morphology | | | [facility] | | | | | | [facility] | | | | | | CENTER - | | | | | | LABORATORY | | + + + + + + | Platelet | Adequate | Adequate | [facility] | | | Estimate | | | [facility] | | [...] + | [facility] | [address] | [place] | [phone] | | [facility] | | [address] | | | - LABORATORY | | | | + + + + + Basic Metabolic Panel (11/08/2017 5:28 AM PST) + + + + + [...] + + | CO2 | 27 | 24 - 31 mmol/L | [facility] | | | | | [facility] | | | | [...] + + + + | Glucose | 219 (H) | 70 - 109 mg/dL | [...] + + + + | Creatinine | 2.75 (H) | 0.60 - 1.30 | [facility] | | | | | mg/dL | [facility] | | | | | | [facility] | | | | | | CENTER - | | | | | | LABORATORY | | + + + + + + | eGFR if not | 17 (L)Comment: | >=60 | [facility] | | | | GLOMERULAR FILTRATION | mL/min/1.73m2 | [facility] | | | [facility] | RATE,ESTIMATED | | MEDICAL | | | | mL/min/1.91z3Jvrm than | | CENTER - | | [...] + + + + | BUN/Creatin | 9.8 | | [facility] | | | ine [...] [address] | [place] | [phone] | | [facility] | | [address] | | | - LABORATORY | | | | + + + + + CBC with Differential (11/08/2017 5:28 AM PST) + + + + + + | Component | Value | Ref Range | Performed | Pathologist | | | | | At | Signature | + + + + + + | White Blood | 8.9 | 4.0 - 11.0 K/uL | [facility] | | | Cells | | | [facility] | | [facility] | | | [facility] - | | | | | | LABORATORY | | + + + + + + | Red Blood | 2.81 (L) | 3.70 - 5.20 | [facility] | | | Cells | | M/uL | [facility] | | | | | | [facility] | | | | | | [facility] - | | | | | | LABORATORY | | + + + + + + | Hemoglobin | 8.7 (L) | 11.5 - 16.0 | [facility] | | | | | g/dL | [facility] | | | | | | [facility] | | | | | | CENTER - | | | | | | LABORATORY | | + + + + + + | Hematocrit | 25.4 (L) | 34.0 - 47.0 % | [facility] | | | | | | [facility] | | | | | | [facility] | | | | | | C[facility] - | | | | | | LABORATORY | | + + + + + + | MCV | 90.2 | 83.0 - 101.0 fL | [facility] | | | | | | [facility] | [facility] | [facility] | | | | | | [facility] - | | | | | | LABORATORY | | + + + + + + | MCH | 30.8 | 28.0 - 35.0 pg | [facility] | | | | | | [facility] | | | | | | [facility] | | | | | | [facility] - | | | | | | LABORATORY | | + + + + + + | MCHC | 34.2 | 32.0 - 36.0 | [facility] | | | | | g/dL | [facility] | | | | | | [facility] | | | | | | CENTER - | | | | | | LABORATORY | | + + + + + + | RDW-CV | 13.9 | <15.0 % | [facility] | | [...] + + + + | MPV | 8.4 | fL | [facility] | | | | | | [facility] | | | | [facility] | | | | | | C[facility] - | | | | | | LABORATORY | | + + + + + + | % | 71.1 | 45.0 - 82.0 % | [facility] | | | Neutrophils | | | [facility] | | | | | | [facility] | | | | | | CENTER - | | | | | | LABORATORY | | + + + + + + | % | 17.8 (L) | 20.0 - 45.0 % | [facility] | | | Lymphocytes | | | [facility] | | | | | | [facility] | | | | | | CENTER - | | | | | | LABORATORY | | + + + + + + | % Monocytes | 9.2 | 4.0 - 12.0 % | [facility] | | | | | | [facility] | | | | | | [facility] | | | | | | CENTER - | | | | | | LABORATORY | | + + + + + + | % | 1.6 | 0.0 - 5.0 % | [facility] | | | Eosinophils | | | [facility] | | | | | | [facility] | | | | | | CENTER - | | | | | | LABORATORY | | + + + + + + | % Basophils | 0.3 | 0.0 - 1.0 % | [facility] | | | | | | [facility] | | | | | | [facility]ICAL | | | | | | CENTER - | | | | | | LABORATORY | | + + + + + + | Absolute | 6.30 | 1.80 - 8.50 | [facility] | [...] + + + + | Absolute | 0.80 | 0.00 - 1.00 | [facility] | [...] | 0.00 | 0.00 - 0.10 | [facility] | | | Basophils | | K/uL [...] [address] | [place] | [phone] | | [facility] | | [address] | | | - LABORATORY | | | | + + + + + POC Glucose (11/07/2017 8:56 PM PST) + +---------+ + + + | Component | Value | Ref Range | Performed | Pathologist | | | | | At | Signature | + +---------+ + + + | Glucose, | 176 (H) | 70 - 109 mg/dL | [...] | [facility] | [address] | [place] | [phone] | | [facility] | | [address] | | | - LABORATORY | | | | + + + + + POC Glucose (11/07/2017 4:36 PM PST) + +---------+ + + + | Component | Value | Ref Range | Performed | Pathologist | | | | | At | Signature | + +---------+ + + + | Glucose, | 210 (H) | 70 - 109 mg/dL | [facility] | | | POC | | | [...] [address] | [place] | [phone] | | [facility] | | [address] | | | - LABORATORY | | | | + + + + + POC Glucose (11/07/2017 11:51 AM PST) + +---------+ + + + | Component | Value | Ref Range | Performed | Pathologist | | | | | At | Signature | + +---------+ + + + | Glucose, | 189 (H) | 70 - 109 mg/dL | [facility] | | | POC | | | [facility] | | | [...] [address] | [place] | [phone] | | [facility] | | [address] | | | - LABORATORY | | | | + + + + + POC Glucose (11/07/2017 6:43 AM PST) + +---------+ + + [...] + | [facility] | [address] | [place] | [phone] | | [facility] | | [address] | | | - LABORATORY | | | | + + + + + Slide Review, Peripheral Smear (11/07/2017 5:55 AM PST) + + + + + + | Component | Value | Ref Range | Performed | Pathologist | | | | | At | Signature | + + + + + + | RBC | Normal | | [facility] | | | Morphology | | | [facility] | | | | | | MEDICAL | | | | | | CENTER - | | | | | | LABORATORY | | + + + + + + | WBC | Normal | | [facility] | | | Morphology | | | [facility] | | | | | | MEDICAL | | | | | | CENTER - | | | | | | LABORATORY | | + + + + + + | Platelet | Adequate | Adequate | [facility] | | | Estimate | | | [facility] | | | | | | [facility] | | | | | | CENTER - | | | | | | LABORATORY | | + + + + + + + + | Specimen | + + | Blood | + + + + + | Narrative | Performed At | + + + | Agree with auto diff, no bands or immature cells noted | [facility] | | [facility] | | | - LABORATORY | + + + + + + + + | Performing | Address | City/State/Zipcode | Phone Number | | Organization | | | | + + + + + | [facility] | [address] | [place] | [phone] | | [facility] | | [address] | | | - LABORATORY | | | | + + + + + Magnesium (11/07/2017 5:55 AM PST) + +---------+ + + + | Component | Value | Ref Range | Performed | Pathologist | | | | | At | Signature | + +---------+ + + + | Magnesium | 1.7 (L) | 1.8 - 2.5 mg/dL | [facility] | | | | | | [facility] | | [...] ST. | [address] | [place] | [phone] | | [facility] | | [address] | | | - LABORATORY | | | | + + + + + CBC with Differential (11/07/2017 5:55 AM PST) + + + + + + | Component | Value | Ref Range | Performed | Pathologist | | | | | At | Signature | + + + + + + | White Blood | 9.9 | 4.0 - 11.0 K/uL | [facility] | | | Cells | | | [facility] | | | | | | MEDICAL | | | | | | CENTER - | | | | | | LABORATORY | | + + + + + + | Red Blood | 3.02 (L) | 3.70 - 5.20 | [facility] | | | Cells | | M/uL | [facility] | | | | | | MEDICAL | | | | | | CENTER - | | | | | | LABORATORY | | + + + + + + | Hemoglobin | 9.1 (L) | 11.5 - 16.0 | [facility] | | | | | g/dL | [facility] | | | | | | MEDICAL | | | | | | CENTER - | | | | | | LABORATORY | | + + + + + + | Hematocrit | 27.1 (L) | 34.0 - 47.0 % | [facility] | | | | | | [facility] | | | | | | [facility]ICAL | | | | | | CENTER - | | | | | | LABORATORY | | + + + + + + | MCV | 89.9 | 83.0 - 101.0 fL | [facility] | | | | | | [facility] | | | | | | [facility]ICAL | | | | | | CENTER - | | | | | | LABORATORY | | + + + + + + | MCH | 30.3 | 28.0 - 35.0 pg | [facility] | | | | | | [facility] | | | | | | [facility]ICAL | | | | | | CENTER - | | | | | | LABORATORY | | + + + + + + | MCHC | 33.7 | 32.0 - 36.0 | [facility] | | | | | g/dL | [facility] | | | | | | MEDICAL | | | | | | CENTER - | | | | | | LABORATORY | | + + + + + + | RDW-CV | 13.7 | <15.0 % | [facility] | | | | | | [facility] | | | | | | MEDICAL | | | | | | CENTER - | | | | | | LABORATORY | | + + + + + + | Platelet | 172 | 140 - 440 K/uL | [facility] [...] + + + + | % | 76.1 | 45.0 - 82.0 % | [facility] | | | Neutrophils | | | [facility] | | | | | | MEDICAL | | | | | | CENTER - | | | | | | LABORATORY | | + + + + + + | % | 15.1 (L) | 20.0 - 45.0 % | [facility] | | | Lymphocytes | | | [facility] | | | | | | MEDICAL | | | | | | CENTER - | | | | | | LABORATORY | | + + + + + + | % Monocytes | 7.2 | 4.0 - 12.0 % | [facility] | | | | | | [facility] | | | | | | MEDICAL | | | | | | CENTER - | | | | | | LABORATORY | | + + + + + + | % | 1.2 | 0.0 - 5.0 % | [facility] | | | Eosinophils | | | [facility] | | | | | | MEDICAL | | | | | | CENTER - | | | | | | LABORATORY | | + + + + + + | % Basophils | 0.4 | 0.0 - 1.0 % | [facility] | | | | | | [facility] | | | | | | MEDICAL | | | | | | CENTER - | | | | | | LABORATORY | | + + + + + + | Absolute | 7.60 | 1.80 - 8.50 | [facility] | [...] + + + + | Absolute | 0.70 | 0.00 - 1.00 | [facility] | [...] | 0.00 | 0.00 - 0.10 | [facility] | | | Basophils | | K/uL [...] [address] | [place] | [phone] | | [facility] | | [address] | | | - LABORATORY | | | | + + + + + Basic Metabolic Panel (11/07/2017 5:55 AM PST) + + + + + [...] | K | 3.6 | 3.5 - 5.1 | [facility] | [...] + | Anion Gap | 7 | 3 - 16 mmol/L | [facility] | | | | | | [facility] | | | | | | MEDICAL | | | | | | CENTER - | | | | | | LABORATORY | | + + + + + + | Glucose | 118 (H) | 70 - 109 [...] [facility] | | | | | | [facility] | | | | | | [facility] | | | | | | C[facility] - | | | | | | LABORATORY | | + + + + + + | Creatinine | 2.24 (H) | 0.60 - 1.30 | [facility] | | | | | mg/dL | [facility] | | | | | | [facility] | | | | | | C[facility] - | | | | | | LABORATORY | | + + + + + + | eGFR if not | 22 (L)Comment: | >=60 | [facility] | | | | GLOMERULAR FILTRATION | mL/min/1.73m2 | [facility] | | | [facility] | RATE,ESTIMATED | | MEDICAL | | | | mL/min/1.72x5Cccn than | | CENTER - | | [...] + + + + | BUN/Creatin | 10.7 | | [facility] | | | ine [...] + | [facility] | [address] | [place] | [phone] | | [facility] | | [address] | | | - LABORATORY | | | | + + + + + POC Glucose (11/06/2017 9:32 PM PST) + +---------+ + + + | Component | Value | Ref Range | Performed | Pathologist | | | | | At | Signature | + +---------+ + + + | Glucose, | 161 (H) | 70 - 109 mg/dL | [...] [address] | [place] | [phone] | | [facility] | | [address] | | | - LABORATORY | | | | + + + + + POC Glucose (11/06/2017 4:47 PM PST) + +-------+ + + + | Component | Value | Ref Range | Performed | Pathologist | | | | | At | Signature | + +-------+ + + + | Glucose, | 104 | 70 - 109 mg/dL | [facility] [...] [address] | [place] | [phone] | | [facility] | | [address] | | | - LABORATORY | | | | + + + + + POC Glucose (11/06/2017 12:01 PM PST) + +---------+ + + + [...] + | [facility] | [address] | [place] | [phone] | | [facility] | | [address] | | | - LABORATORY | | | | + + + + + Slide Review, Peripheral Smear (11/06/2017 6:42 AM PST) + + + + + + | Component | Value | Ref Range | Performed | Pathologist | | | | | At | Signature | + + + + + + | RBC | Normal | | [facility] | | | Morphology | | | [facility] | | | | | | MEDICAL | | | | | | CENTER - | | | | | | LABORATORY | | + + + + + + | WBC | Normal | | [facility] | | | Morphology | | | [facility] | | | [facility] | | MEDICAL | | | | | | CENTER - | | | | | | LABORATORY | | + + + + + + | Platelet | Adequate | Adequate | [facility] | | | Estimate | | | [facility] | | | [facility] | | [facility] | | | | | | CENTER - | | | | | | LABORATORY | | + + + + + + + + | Specimen | + + | Blood | + + + + + | Narrative | Performed At | + + + | Agree with auto diff, rare band seen, <10% | [facility] | | | [facility] | | | - LABORATORY | + + + + + + + + | Performing | Address | City/State/Zipcode | Phone Number | | Organization | | | | + + + + + | [facility] | [address] | [place] | [phone] | | [facility] | | [address] | | | - LABORATORY | | | | + + + + + Phosphorus (11/06/2017 6:42 AM PST) + +---------+ + + + | Component | Value | Ref Range | Performed | Pathologist | | | | | At | Signature | + +---------+ + + + | Phosphorus | 2.4 (L) | 2.5 - 4.6 mg/dL | [facility] | | | | | | [facility] | | [...] ST. | [address] | [place], [place] | [phone] | | [facility] | | [address] | | | - LABORATORY | | | | + + + + + Magnesium (11/06/2017 6:42 AM PST) + +-------+ + + + [...] [address] | [place] | [phone] | | [facility] | | [address] | | | - LABORATORY | | | | + + + + + CBC with Differential (11/06/2017 6:42 AM PST) + + + + + + | Component | Value | Ref Range | Performed | Pathologist | | | | | At | Signature | + + + + + + | White Blood | 9.9 | 4.0 - 11.0 K/uL | [facility] | | | Cells | | | [facility] | | | | | | MEDICAL | | | | | | CENTER - | | | | | | LABORATORY | | + + + + + + | Red Blood | 2.94 (L) | 3.70 - 5.20 | [facility] | | | Cells | | M/uL | [facility] | | | | | | [facility]ICAL | | | | | | CENTER - | | | | | | LABORATORY | | + + + + + + | Hemoglobin | 9.0 (L) | 11.5 - 16.0 | [facility] [...] + + + + | MCV | 90.2 | 83.0 - 101.0 fL | [facility] | | | | | | [facility] | | | | | | MEDICAL | | | | | | CENTER - | | | | | | LABORATORY | | + + + + + + | MCH | 30.6 | 28.0 - 35.0 pg | [facility] | | | | | | [facility] | | | | | | MEDICAL | | | | | | CENTER - | | | | | | LABORATORY | | + + + + + + | MCHC | 33.9 | 32.0 - 36.0 | [facility] | | | | | g/dL | [facility] | | | | | | MEDICAL | | | | | | CENTER - | | | | | | LABORATORY | | + + + + + + | RDW-CV | 14.0 | <15.0 % | [facility] | | | | | | [facility] | | | | | | MEDICAL | | | | | | CENTER - | | | | | | LABORATORY | | + + + + + + | Platelet | 176 | 140 - 440 K/uL | [facility] | | | Count | | | [facility] | | | | | | MEDICAL | | | | | | CENTER - | | | | | | LABORATORY | | + + + + + + | MPV | 9.0 | fL | [facility] | | | | | | [facility] | | | | | | MEDICAL | | | | | | CENTER - | | | | | | LABORATORY | | + + + + + + | % | 79.5 | 45.0 - 82.0 % | [facility] | | | Neutrophils | | | [facility] | | | | | | MEDICAL | | | | | | CENTER - | | | | | | LABORATORY | | + + + + + + | % | 14.1 (L) | 20.0 - 45.0 % | [facility] | | | Lymphocytes | | | [facility] | | | | | | MEDICAL | | | | | | CENTER - | | | | | | LABORATORY | | + + + + + + | % Monocytes | 4.9 | 4.0 - 12.0 % | [facility] [...] + + + + | Absolute | 1.40 | 0.60 - 3.20 | [facility] | | | Lymphocytes | | K/uL | [facility] | | | | | | MEDICAL | | | | | | CENTER - | | | | | | LABORATORY | | + + + + + + | Absolute | 0.50 | 0.00 - 1.00 | [facility] | [...] + | [facility] | [address] | [place] | [phone] | | [facility] | | [address] | | | - LABORATORY | | | | + + + + + Basic Metabolic Panel (11/06/2017 6:42 AM PST) + + + + + [...] + + + + | K | 3.9 | 3.5 - 5.1 | [facility] | [...] + + + + | Glucose | 108 | 70 - 109 mg/dL | [facility] | | | | | | [facility] | | | | | | MEDICAL | | | | | | CENTER - | | | | | | LABORATORY | | + + + + + + | BUN | 30 (H) | 7 - 18 mg/dL | [facility] | | | | | | [facility] | | | | | | MEDICAL | | | | | | CENTER - | | | | | | LABORATORY | | + + + + + + | Creatinine | 2.40 (H) | 0.60 - 1.30 | [facility] | | | | | mg/dL | [facility] | | | | | | MEDICAL | | | | | | CENTER - | | | | | | LABORATORY | | + + + + + + | eGFR if not | 20 (L)Comment: | >=60 | [facility] | | | | GLOMERULAR FILTRATION | mL/min/1.73m2 | [facility] | | | [facility] | RATE,ESTIMATED | | MEDICAL | | | | mL/min/1.77t7Zqyw than | | CENTER - | | [...] | 8.7 | 8.3 - 10.5 | [facility] | | | | | mg/dL | [facility] | | | | | | MEDICAL | | | | | | CENTER - | | | | | | LABORATORY | | + + + + + + | BUN/Creatin | 12.5 | | [facility] | | | ine Ratio | | [...] ST. | [address] | [place], [place] | [phone] | | [facility] | | [address] | | | - LABORATORY | | | | + + + + + POC Glucose (11/06/2017 6:30 AM PST) + +---------+ + + + [...] [address] | [place] | [phone] | | [facility] | | [address] | | | - LABORATORY | | | | + + + + + POC Glucose (11/05/2017 9:34 PM PST) + +---------+ + + + | Component | Value | Ref Range | Performed | Pathologist | | | | | At | Signature | + +---------+ + + + | Glucose, | 122 (H) | 70 - 109 mg/dL | [...] | [facility] | [address] | [place] | [phone] | | [facility] | | [address] | | | - LABORATORY | | | | + + + + + POC Glucose (11/05/2017 5:39 PM PST) + +---------+ + + + | Component | Value | Ref Range | Performed | Pathologist | | | | | At | Signature | + +---------+ + + + | Glucose, | 121 (H) | 70 - 109 mg/dL | [...] + | [facility] | 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 Procedure | | | dateDate: 11/05/2017Start: 03:13 PM Technical Quality: Adequate | | | visualizationStudy Location: PortableIndications: Endocarditis | | | 421.0/I33.0*B96.89.Patient Status: RoutineHeight: 68 inchesWeight: 175 | | | poundsBSA: 1.93 m^2BMI: 26.61 kg/m^2Rhythm: Normal Sinus Rhythm | | | ConclusionsSummary1. Mild left atrial dilatation.2. Normal left | | | ventricular size, wall thickness and motion. Preserved leftventricular | | | systolic function. LVEF is 60-65%.3. Mildly thickened and calcified | | | mitral valve with a mild to moderatemitral valve regurgitation.4. Mild | | | mitral annular calcification.5. Mildly thickened and calcified | | | trileaflet aortic valve with adequateopening.6. Mild to moderate | | | mitral valve regurgitation.7. Mild to moderate pulmonary hypertension | | | with a peak systolic pressure of50-55 mmHg.8. Dilated IVC without | | | respiratory collapse suggesting fluid retention.9. No obvious | | | vegetation/endocarditis seen on this study. | | | Signature | | | | | | PM | | | -------- FindingsMitral ValveThickening and calcification of the | | | mitral valve leaflets.Mild mitral annular calcification is | | | present.Mild mitral annular calcification is present.Aortic | | | ValveAortic valve appears trileaflet.Diffuse thickening (sclerosis) of | | | the aortic valve cusps without reducedexcursion.Tricuspid | | | CyceaGqdm-vg-songrqwt tricuspid regurgitation suggestive of a mildly | | | elevatedright systolic pressure of 50-55 mmHg.Pulmonic | | | ValveStructurally normal pulmonic valve without significant stenosis | | | orregurgitation.Left AtriumThe left atrium is mildly dilated.Left | | | VentricleLeft ventricle is normal in size and function. Ejection | | | fraction isestimated at 60-65 %.Impaired relaxation compatible with | | | diastolic dysfunction (reversed E/Aratio).Right AtriumNormal right | | | atrial size.Right VentricleNormal right ventricular size.Right | | | ventricle global systolic function is normal.TAPSE = 3 cm. Valves | | | Mitral Valve Peak E-Wave: 1.77 m/s MAMI | | | PISA: 0.33 cm^2 Peak A-Wave: 1.34 m/s Tissue Doppler Septal e' | | | Velocity: 0.11 m/s Septal E/e' Ratio:15.99 Aortic Valve Mean | | | Gradient: 7.01 mmHg Tricuspid Valve TR Velocity: 3.04 m/s LVOT | | | Peak Velocity: 1.25 m/s Structures Left Atrium LA A/P Dimension: | | | 5.12 cm LA Area: 20.69 cm^2 LA Vol/BSA | | | Index: 31 mL/m^2 LA Volume: 60.67 ml | | | EF | | | [id number]% Left Ventricle Diastolic Dimension: 4.77 cm Septum | | | Diastolic: 1.06 cm PW Diastolic: 1.19 cm EF Calculated: 66% | | | Miscellaneous Aorta Aortic Root: 2.64 cm | | | Electronically signed by SHERRIE RADFORD MD(Interpreting physician) on | | | 11/05/2017 04:27 PM | | | | | | | | |Findings | | |Mitral Valve | | |Thickening and calcification of the mitral valve leaflets. | | |Mild mitral annular calcification is present. | | |Mild mitral annular calcification is present. | | |Aortic Valve | | |Aortic valve appears trileaflet. | | |Diffuse thickening (sclerosis) of the aortic valve cusps without reduced | | |excursion. | | |Tricuspid Valve | | |Tocx-fn-wpbveiru tricuspid regurgitation suggestive of a mildly elevated | | |right systolic pressure of 50-55 mmHg. | | |Pulmonic Valve | | |Structurally normal pulmonic valve without significant stenosis or | | |regurgitation. | | |Left Atrium | | |The left atrium is mildly dilated. | | |Left Ventricle | | |Left ventricle is normal in size and function. Ejection fraction is | | |estimated at 60-65 %. | | |Impaired relaxation compatible with diastolic dysfunction (reversed E/A | | |ratio). | | |Right Atrium | | |Normal right atrial size. | | |Right Ventricle | | |Normal right ventricular size. | | |Right ventricle global systolic function is normal. | | |TAPSE = 3 cm. | | | | | |Valves | | | | | | Mitral Valve | | | | | | Peak E-Wave: 1.77 m/s MAMI PISA: 0.33 cm^2 | | | Peak A-Wave: 1.34 m/s | | | | | | Tissue Doppler | | | | | | Septal e' Velocity: 0.11 m/s | | | Septal E/e' Ratio:15.99 | | | | | | Aortic Valve | | | | | | Mean Gradient: 7.01 mmHg | | | | | | Tricuspid Valve | | | | | | TR Velocity: 3.04 m/s | | | | | | LVOT | | | | | | Peak Velocity: 1.25 m/s | | | | | |Structures | | | | | | Left Atrium | | | | | | LA A/P Dimension: 5.12 cm LA Area: 20.69 cm^2 | | | LA Vol/BSA Index: 31 mL/m^2 LA Volume: 60.67 ml | | | EF [id number]% | | | | | | Left Ventricle | | | | | | Diastolic Dimension: 4.77 cm | | | Septum Diastolic: 1.06 cm | | | PW Diastolic: 1.19 cm | | | EF Calculated: 66% | | | | | | Miscellaneous | | | | | | Aorta | | | | | | Aortic Root: 2.64 cm | | | | | + +-- + + + | Procedure Note | + + | Julian, Rad Results In - 11/05/2017 4:27 PM [facility] Transthoracic Echocardiography Report | | (TTE) Demographics Patient Name ANDRES BULLOCK Room Number 307 | | [place] Patient Number [id number] Date of Study 11/05/2017 Visit Number | | [id number] Referring Physician AUDI ANDRADE | | Number Date of 1945 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 Mild left atrial dilatation.2. Normal left ventricular size, | | wall thickness and motion. Preserved leftventricular systolic function. LVEF is | | 60-65%.3. Mildly thickened and calcified mitral valve with a mild to moderatemitral | | valve regurgitation.4. Mild mitral annular calcification.5. Mildly thickened and | | calcified trileaflet aortic valve with adequateopening.6. Mild to moderate mitral valve | | regurgitation.7. Mild to moderate pulmonary hypertension with a peak systolic pressure | | of50-55 mmHg.8. Dilated IVC without respiratory collapse suggesting fluid retention.9. | | No obvious vegetation/endocarditis seen on this | | study.Signature | | --- | | 04:27 | | PM FindingsMi | | tral ValveThickening and calcification of the mitral valve leaflets.Mild mitral annular | | calcification is present.Mild mitral annular calcification is present.Aortic ValveAortic | | valve appears trileaflet.Diffuse thickening (sclerosis) of the aortic valve cusps | | without reducedexcursion.Tricuspid [id number] tricuspid regurgitation | | suggestive of a mildly elevatedright systolic pressure of 50-55 mmHg.Pulmonic | | ValveStructurally normal pulmonic valve without significant stenosis | | orregurgitation.Left AtriumThe left atrium is mildly dilated.Left VentricleLeft | | ventricle is normal in size and function. Ejection fraction isestimated at 60-65 | | %.Impaired relaxation compatible with diastolic dysfunction (reversed E/Aratio).Right | | AtriumNormal right atrial size.Right VentricleNormal right ventricular size.Right | | ventricle global systolic function is normal.TAPSE = 3 cm.Valves Mitral Valve Peak | | E-Wave: 1.77 m/s MAMI PISA: 0.33 cm^2 Peak A-Wave: 1.34 m/s Tissue | | Doppler Septal e' Velocity: 0.11 m/s Septal E/e' Ratio:15.99 Aortic Valve Mean | | Gradient: 7.01 mmHg Tricuspid Valve TR Velocity: 3.04 m/s LVOT Peak Velocity: 1.25 | | m/sStructures Left Atrium LA A/P Dimension: 5.12 cm LA Area: 20.69 | | cm^2 LA Vol/BSA Index: 31 mL/m^2 LA Volume: 60.67 ml | | EF [id number]% Left Ventricle Diastolic Dimension: 4.77 | | cm Septum Diastolic: 1.06 cm PW Diastolic: 1.19 cm EF Calculated: 66% Miscellaneous | | Aorta Aortic Root: 2.64 cm | |ventricular systolic function. LVEF is 60-65%. | |3. Mildly thickened and calcified mitral valve with a mild to moderate | |mitral valve regurgitation. | |4. Mild mitral annular calcification. | |5. Mildly thickened and calcified trileaflet aortic valve with adequate | |opening. | |6. Mild to moderate mitral valve regurgitation. | |7. Mild to moderate pulmonary hypertension with a peak systolic pressure of | |50-55 mmHg. | |8. Dilated IVC without respiratory collapse suggesting fluid retention. | |9. No obvious vegetation/endocarditis seen on this study. | | | |Signature | | | | Electronically signed by SHERRIE RADFORD MD(Interpreting physician) on | | 11/05/2017 04:27 PM | | | | | |Findings | |Mitral Valve | |Thickening and calcification of the mitral valve leaflets. | |Mild mitral annular calcification is present. | |Mild mitral annular calcification is present. | |Aortic Valve | |Aortic valve appears trileaflet. | |Diffuse thickening (sclerosis) of the aortic valve cusps without reduced | |excursion. | |Tricuspid Valve | |Vjro-dx-otkrypav tricuspid regurgitation suggestive of a mildly elevated | |right systolic pressure of 50-55 mmHg. | |Pulmonic Valve | |Structurally normal pulmonic valve without significant stenosis or | |regurgitation. | |Left Atrium | |The left atrium is mildly dilated. | |Left Ventricle | |Left ventricle is normal in size and function. Ejection fraction is | |estimated at 60-65 %. | |Impaired relaxation compatible with diastolic dysfunction (reversed E/A | |ratio). | |Right Atrium | |Normal right atrial size. | |Right Ventricle | |Normal right ventricular size. | |Right ventricle global systolic function is normal. | |TAPSE = 3 cm. | | | |Valves | | | | Mitral Valve | | | | Peak E-Wave: 1.77 m/s MAMI PISA: 0.33 cm^2 | | Peak A-Wave: 1.34 m/s | | | | Tissue Doppler | | | | Septal e' Velocity: 0.11 m/s | | Septal E/e' Ratio:15.99 | | | | Aortic Valve | | | | Mean Gradient: 7.01 mmHg | | | | Tricuspid Valve | | | | TR Velocity: 3.04 m/s | | | | LVOT | | | | Peak Velocity: 1.25 m/s | | | |Structures | | | | Left Atrium | | | | LA A/P Dimension: 5.12 cm LA Area: 20.69 cm^2 | | LA Vol/BSA Index: 31 mL/m^2 LA Volume: 60.67 ml | | EF Evwikktpm98% | | | | Left Ventricle | | | | Diastolic Dimension: 4.77 cm | | Septum Diastolic: 1.06 cm | | PW Diastolic: 1.19 cm | | EF Calculated: 66% | | | | Miscellaneous | | | | Aorta | | | | Aortic Root: 2.64 cm | + + + +---------+ + + | Performing | Address | City/State/Zipcode | Phone Number | | Organization | | | | + +---------+ + + | [facility] | | | | + +---------+ + + POC Glucose (11/05/2017 11:52 AM PST) + +---------+ + + + | Component | Value | Ref Range | Performed | Pathologist | | | | | At | Signature | + +---------+ + + + | Glucose, | 151 (H) | 70 - 109 mg/dL | [facility] | | | POC | | | [facility] | | | | | | MEDICAL [...] [address] | [place] | [phone] | | [facility] | | [address] | | | - LABORATORY | | | | + + + + + POC Glucose (11/05/2017 6:39 AM PST) + +---------+ + + + | Component | Value | Ref Range | Performed | Pathologist | | | | | At | Signature | + +---------+ + + + | Glucose, | 129 (H) | 70 - 109 mg/dL | [facility] | | | POC | | | [facility] | | | | | [...] + | [facility] | [address] | [place] | [phone] | | [facility] | | [address] | | | - LABORATORY | | | | + + + + + Phosphorus (11/05/2017 6:12 AM PST) + +---------+ + + + | Component | Value | Ref Range | Performed | Pathologist | | | | | At | Signature | + +---------+ + + + | Phosphorus | 2.3 (L) | 2.5 - 4.6 mg/dL | [facility] | [address] | [place], [place] | [phone] | | [facility] | | [address] | | | - LABORATORY | | | | + + + + + Magnesium (11/05/2017 6:12 AM PST) + +-------+ + + + | Component | Value | Ref Range | Performed | Pathologist | | | | | At | Signature | + +-------+ + + + | Magnesium | 1.9 | 1.8 - 2.5 mg/dL | [facility] [...] [address] | [place] | [phone] | | [facility] | | [address] | | | - LABORATORY | | | | + + + + + CBC with Differential (11/05/2017 6:12 AM PST) + + + + + + | Component | Value | Ref Range | Performed | Pathologist | | | | | At | Signature | + + + + + + | White Blood | 14.0 (H) | 4.0 - 11.0 K/uL | [facility] | | | Cells | | | [facility] | | | | | [facility] | | | | | | C[facility] - | | | | | | LABORATORY | | + + + + + + | Red Blood | 2.77 (L) | 3.70 - 5.20 | [facility] | | | Cells | | M/uL | [facility] | | | | | | MEDICAL | | | | | | CENTER - | | | | | | LABORATORY | | + + + + + + | Hemoglobin | 8.3 (L) | 11.5 - 16.0 | [facility] | | | | | g/dL | [facility] | | | | | | MEDICAL | | | | | | CENTER - | | | | | | LABORATORY | | + + + + + + | Hematocrit | 24.9 (L) | 34.0 - 47.0 % | [facility] | | | | | | [facility] | | | | | | MEDICAL | | | | | | CENTER - | | | | | | LABORATORY | | + + + + + + | MCV | 89.9 | 83.0 - 101.0 fL | [facility] | | | | | | [facility] | | | | | | MEDICAL | | | | | | CENTER - | | | | | | LABORATORY | | + + + + + + | MCH | 29.8 | 28.0 - 35.0 pg | [facility] | | | | | | [facility] | | | | | | MEDICAL | | | | | | CENTER - | | | | | | LABORATORY | | + + + + + + | MCHC | 33.1 | 32.0 - 36.0 | [facility] | | | | | g/dL | [facility] | | | | | | MEDICAL | | | | | | CENTER - | | | | | | LABORATORY | | + + + + + + | RDW-CV | 14.1 | <15.0 % | [facility] | | | | | | [facility] | | | | | | MEDICAL | | | | | | CENTER - | | | | | | LABORATORY | | + + + + + + | Platelet | 154 | 140 - 440 K/uL | [facility] | | | Count | | | [facility] | | | | | | MEDICAL | | | | | | CENTER - | | | | | | LABORATORY | | + + + + + + | MPV | 9.6 | fL | [facility] | | | | | | [facility] | | | | | | [facility]ICAL | | | | | | CENTER - | | | | | | LABORATORY | | + + + + + + | % | 86.6 (H) | 45.0 - 82.0 % | [facility] | | | Neutrophils | | | [facility] | | | | | | MEDICAL | | | | | | CENTER - | | | | | | LABORATORY | | + + + + + + | % | 9.7 (L) | 20.0 - 45.0 % | [facility] | | | Lymphocytes | | | [facility] | | | | | | MEDICAL | | | | | | CENTER - | | | | | | LABORATORY | | + + + + + + | % Monocytes | 2.4 (L) | 4.0 - 12.0 % | [...] + + + | % Basophils | 0.4 | 0.0 - 1.0 % | [facility] | | | | | | [facility] | | | | | | MEDICAL | | | | | | CENTER - | | | | | | LABORATORY | | + + + + + + | Absolute | 12.10 (H) | 1.80 - 8.50 | [facility] | | | Neutrophils | | K/uL | [facility] | | | | | | MEDICAL | | | | | | CENTER - | | | | | | LABORATORY | | + + + + + + | Absolute | 1.40 | 0.60 - 3.20 | [facility] | [...] + | [facility] | [address] | [place] | [phone] | | [facility] | | [address] | | | - LABORATORY | | | | + + + + + Basic Metabolic Panel (11/05/2017 6:12 AM PST) + + + + + [...] | K | 4.4 | 3.5 - 5.1 | [facility] | | | | | mmol/L | [facility] | | | | | | MEDICAL | | | | | | CENTER - | | | | | | LABORATORY | | + + + + + + | Cl | 101 | 98 - 109 mmol/L | [facility] [...] + + + + | Glucose | 130 (H) | 70 - 109 mg/dL | [facility] | | | | | | [facility] | | | | | | MEDICAL | | | | | | CENTER - | | | | | | LABORATORY | | + + + + + + | BUN | 28 (H) | 7 - 18 mg/dL | [facility] | | | | | | [facility] | | | | | | MEDICAL | | | | | | CENTER - | | | | | | LABORATORY | | + + + + + + | Creatinine | 1.88 (H) | 0.60 - 1.30 | [facility] | | | | | mg/dL | [facility] | | | | | | MEDICAL | | | | | | CENTER - | | | | | | LABORATORY | | + + + + + + | eGFR if not | 26 (L)Comment: | >=60 | [facility] | | | | GLOMERULAR FILTRATION | mL/min/1.73m2 | [facility] | | | [facility] | RATE,ESTIMATED | | MEDICAL | | | | mL/min/1.79p1Lalb than | | CENTER - | | [...] + + + + | BUN/Creatin | 14.9 | | [facility] | | | ine [...] [address] | [place] | [phone] | | [facility] | | [address] | | | - LABORATORY | | | | + + + + + POC Glucose (11/04/2017 10:49 PM PST) + +---------+ + + + | Component | Value | Ref Range | Performed | Pathologist | | | | | At | Signature | + +---------+ + + + | Glucose, | 199 (H) | 70 - 109 mg/dL | [...] [address] | [place] | [phone] | | [facility] | | [address] | | | - LABORATORY | | | | + + + + + Culture, Blood (11/04/2017 9:22 PM PST) + + + + + + | Component | Value | Ref Range | Performed | Pathologist | | | | | At | Signature | + + + + + + | Culture | No growth after 5 days | | [facility] | | | | incubation. | | [facility] | | | | | | MEDICAL | | | | | | CENTER - | | | | | | LABORATORY | | + + + + + + + + | Specimen | + + | Blood - Swab of line | | insertion site | | (specimen) | + + + + + + + | Performing | Address | City/State/Zipcode | Phone Number | | Organization | | | | + + + + + | [facility] | [address] | [place] | [phone] | | [facility] | | [address] | | | - LABORATORY | | | | + + + + + Culture, Blood (11/04/2017 9:03 PM PST) + + + + + + | Component | Value | Ref Range | Performed | Pathologist | | | | | At | Signature | + + + + + + | Culture | No growth after 5 days | | [facility] | | | | incubation. | | [facility] | | | | | | MEDICAL | | | | | | CENTER - | | | | | | LABORATORY | | + + + + + + + + | Specimen | + + | Blood - Swab of line | | insertion site | | (specimen) | + + + + + + + | Performing | Address | City/State/Zipcode | Phone Number | | Organization | | | | + + + + + | [facility] | [address] | [place] | [phone] | | [facility] | | [address] | | | - LABORATORY | | | | + + + + + POC Glucose (11/04/2017 4:47 PM PST) + +---------+ + + + | Component | Value | Ref Range | Performed | Pathologist | | | | | At | Signature | + +---------+ + + + | Glucose, | 178 (H) | 70 - 109 mg/dL | [...] | [facility] | [address] | [place] | [phone] | | [facility] | | [address] | | | - LABORATORY | | | | + + + + + POC Glucose (11/04/2017 11:34 AM PST) + +---------+ + + + | Component | Value | Ref Range | Performed | Pathologist | | | | | At | Signature | + +---------+ + + + | Glucose, | 185 (H) | 70 - 109 mg/dL | [...] + | [facility] | [address] | [place] | [phone] | | [facility] | | [address] | | | - LABORATORY | | | | + + + + + C-Reactive Protein (11/04/2017 4:19 AM PST) + + + + + + | Component | Value | Ref Range | Performed | Pathologist | | | | | At | Signature | + + + + + + | CRP | 253.22 (H) | <8.00 mg/L | [facility] | | | | | | [facility] [...] [address] | [place] | [phone] | | [facility] | | [address] | | | - LABORATORY | | | | + + + + + Phosphorus (11/04/2017 4:19 AM PST) + +-------+ + + + | Component | Value | Ref Range | Performed | Pathologist | | | | | At | Signature | + +-------+ + + + | Phosphorus | 2.9 | 2.5 - 4.6 mg/dL | [facility] [...] [address] | [place] | [phone] | | [facility] | | [address] | | | - LABORATORY | | | | + + + + + Magnesium (11/04/2017 4:19 AM PST) + +-------+ + + + | Component | Value | Ref Range | Performed | Pathologist | | | | | At | Signature | + +-------+ + + + | Magnesium | 1.9 | 1.8 - 2.5 mg/dL | [facility] | | | | | | [facility] [...] + | [facility] | [address] | [place] | [phone] | | [facility] | | [address] | | | - LABORATORY | | | | + + + + + CBC with Differential (11/04/2017 4:19 AM PST) + + + + + + | Component | Value | Ref Range | Performed | Pathologist | | | | | At | Signature | + + + + + + | White Blood | 13.9 (H) | 4.0 - 11.0 K/uL | [facility] | | | Cells | | | [facility] | | | | | | MEDICAL | | | | | | CENTER - | | | | | | LABORATORY | | + + + + + + | Red Blood | 2.67 (L) | 3.70 - 5.20 | [facility] | | | Cells | | M/uL | [facility] | | | | | | MEDICAL | | | | | | CENTER - | | | | | | LABORATORY | | + + + + + + | Hemoglobin | 7.9 (L) | 11.5 - 16.0 | [facility] | | | | | g/dL | [facility] | | | | | | MEDICAL | | | | | | CENTER - | | | | | | LABORATORY | | + + + + + + | Hematocrit | 24.1 (L) | 34.0 - 47.0 % | [facility] | | | | | | [facility] | | | | | | MEDICAL | | | | | | CENTER - | | | | | | LABORATORY | | + + + + + + | MCV | 90.1 | 83.0 - 101.0 fL | [facility] | | | | | | [facility] | | | | | | MEDICAL | | | | | | CENTER - | | | | | | LABORATORY | | + + + + + + | MCH | 29.5 | 28.0 - 35.0 pg | [facility] [...] + + + + | Platelet | 127 (L) | 140 - 440 K/uL | [facility] | | | Count | | | [facility] | | | | | | MEDICAL | | | | | | CENTER - | | | | | | LABORATORY | | + + + + + + | MPV | 9.2 | fL | [facility] | | | | | | [facility] | | | | | | MEDICAL | | | | | | CENTER - | | | | | | LABORATORY | | + + + + + + | % | 85.9 (H) | 45.0 - 82.0 % | [facility] | | | Neutrophils | | | [facility] | | | | | | MEDICAL | | | | | | CENTER - | | | | | | LABORATORY | | + + + + + + | % | 10.2 (L) | 20.0 - 45.0 % | [facility] | | | Lymphocytes | | | [facility] | | | | | | MEDICAL | | | | | | CENTER - | | | | | | LABORATORY | | + + + + + + | % Monocytes | 2.2 (L) | 4.0 - 12.0 % | [facility] | | | | | | [facility] | | | | | | MEDICAL | | | | | | CENTER - | | | | | | LABORATORY | | + + + + + + | % | 1.4 | 0.0 - 5.0 % | [facility] | | | Eosinophils | | | [facility] | | | | | | [facility] | | | | | | CENTER - | | | | | | LABORATORY | | + + + + + + | % Basophils | 0.3 | 0.0 - 1.0 % | [facility] | | | | | | [facility] | | | | | | MEDICAL | | | | | | CENTER - | | | | | | LABORATORY | | + + + + + + | Absolute | 12.00 (H) | 1.80 - 8.50 | [facility] | | | Neutrophils | | K/uL | [facility] | | | | | | MEDICAL | | | | | | CENTER - | | | | | | LABORATORY | | + + + + + + | Absolute | 1.40 | 0.60 - 3.20 | [facility] | [...] [address] | [place] | [phone] | | [facility] | | [address] | | | - LABORATORY | | | | + + + + + Basic Metabolic Panel (11/04/2017 4:19 AM PST) + + + + + [...] + + + + | K | 3.9 | 3.5 - 5.1 | [facility] | | | | | mmol/L | [facility] | | | | | | MEDICAL | | | | | | CENTER - | | | | | | LABORATORY | | + + + + + + | Cl | 102 | 98 - 109 mmol/L | [facility] | | | | | | [facility] | | | | | | MEDICAL | | | | | | CENTER - | | | | | | LABORATORY | | + + + + + + | CO2 | 27 | 24 - 31 mmol/L | [facility] | | | | | | [facility] | | | | [...] + + + + | Glucose | 143 (H) | 70 - 109 mg/dL | [facility] | | | | | | [facility] | | | | | | MEDICAL | | | | | | CENTER - | | | | | | LABORATORY | | + + + + + + | BUN | 43 (H) | 7 - 18 mg/dL | [facility] | | | | | | [facility] | | | | | | MEDICAL | | | | | | CENTER - | | | | | | LABORATORY | | + + + + + + | Creatinine | 2.38 (H) | 0.60 - 1.30 | [facility] | | | | | mg/dL | [facility] | | | | | | MEDICAL | | | | | | CENTER - | | | | | | LABORATORY | | + + + + + + | eGFR if not | 20 (L)Comment: | >=60 | [facility] | | | | GLOMERULAR FILTRATION | mL/min/1.73m2 | [facility] | | | [place] | RATE,ESTIMATED | | MEDICAL | | | | mL/min/1.03v8Sdzp than | | CENTER - | | [...] + | Calcium | 8.1 (L) | 8.3 - 10.5 | [facility] | | | | | mg/dL | [facility] | | | | | | MEDICAL | | | | | | CENTER - | | | | | | LABORATORY | | + + + + + + | BUN/Creatin | 18.1 | | [facility] | | | ine [...] [address] | [place] | [phone] | | [facility] | | [address] | | | - LABORATORY | | | | + + + + + POC Glucose (11/04/2017 1:32 AM PST) + +---------+ + + + | Component | Value | Ref Range | Performed | Pathologist | | | | | At | Signature | + +---------+ + + + | Glucose, | 207 (H) | 70 - 109 mg/dL | [facility] | | | POC | | | [facility] | | | [...] + | [facility] | [address] | [place] | [phone] | | [facility] | | [address] | | | - LABORATORY | | | | + + + + + POC Glucose (11/03/2017 8:29 PM PST) + +---------+ + + + | Component | Value | Ref Range | Performed | Pathologist | | | | | At | Signature | + +---------+ + + + | Glucose, | 271 (H) | 70 - 109 mg/dL | [...] [facility] | [address] | [place], [place] | [phone] | | [facility] | | [address] | | | - LABORATORY | | | | + + + + + POC Glucose (11/03/2017 6:08 PM PST) + +---------+ + + + | Component | Value | Ref Range | Performed | Pathologist | | | | | At | Signature | + +---------+ + + + | Glucose, | 295 (H) | 70 - 109 mg/dL | [...] [address] | [place] | [phone] | | [facility] | | [address] | | | - LABORATORY | | | | + + + + + POC Glucose (11/03/2017 4:23 PM PST) + +---------+ + + + | Component | Value | Ref Range | Performed | Pathologist | | | | | At | Signature | + +---------+ + + + | Glucose, | 295 (H) | 70 - 109 mg/dL | [...] [facility] | [address] | [place], [place] | [phone] | | [facility] | | [address] | | | - LABORATORY | | | | + + + + + XR Chest AP Portable (11/03/2017 3:20 PM PST) + + | Specimen | + + | | + + + + + | Narrative | Performed At | + + + | XR CHEST AP PORTABLE 11/03/2017 3:20 PM HISTORY: line placement.. | [facility] | | COMPARISON: 11/03/2017 Findings: Prominent consolidation is | | | reidentified involving the central mid and lower lung zones | | | bilaterally. Right internal jugular approach central catheter tip | | | terminates in the mid right atrium. No evidence of pneumothorax or | | | pleural effusion. Aortic calcifications are seen. Bones and soft | | | tissues are unchanged. IMPRESSION - Prominent consolidation is | | | reidentified involving the central mid and lower lung zones | | | bilaterally. Right internal jugular approach central catheter tip | | | terminates in the mid right atrium. Dictated and Signed by: Itz | | | MD Cale Electronically signed: 11/03/2017 4:25 PM | | + + + + + | Procedure Note | + + | Julian, Rad Results In - 11/03/2017 4:28 PM PST XR CHEST AP PORTABLE 11/03/2017 3:20 PM | | | | HISTORY: line placement.. | | | | COMPARISON: 11/03/2017 | | | | Findings: Prominent consolidation is reidentified involving the central mid and | | lower lung zones bilaterally. Right internal jugular approach central catheter | | tip terminates in the mid right atrium. No evidence of pneumothorax or pleural | | effusion. Aortic calcifications are seen. Bones and soft tissues are unchanged. | | | | IMPRESSION - | | Prominent consolidation is reidentified involving the central mid and lower lung | | zones bilaterally. | | | | Right internal jugular approach central catheter tip terminates in the mid right | | atrium. | | | | Dictated and Signed by: Itz Madsen MD | | Electronically signed: 11/03/2017 4:25 PM | + + + +---------+ + + | Performing | Address | City/State/Zipcode | Phone Number | | Organization | | | | + +---------+ + + | [facility] | | | | + +---------+ + + Culture, Blood (11/03/2017 3:06 PM PST) + + + + + + | Component | Value | Ref Range | Performed | Pathologist | | | | | At | Signature | + + + + + + | Culture | No growth after 5 days | | [facility] | | | | incubation. | | [facility] | | | | | | MEDICAL | | | | | | CENTER - | | | | | | LABORATORY | | + + + + + + + + | Specimen | + + | Blood - Peripheral | | blood specimen | | (specimen) | + + + + + + + | Performing | Address | City/State/Zipcode | Phone Number | | Organization | | | | + + + + + | [facility] | [address] | [place] | [phone] | | [facility] | | [address] | | | - LABORATORY | | | | + + + + + POC Glucose (11/03/2017 2:16 PM PST) + +---------+ + + + | Component | Value | Ref Range | Performed | Pathologist | | | | | At | Signature | + +---------+ + + + | Glucose, | 282 (H) | 70 - 109 mg/dL | [...] | [address] | [place] | [phone] | | [facility] | | [address] | | | - LABORATORY | | | | + + + + + POC Glucose (11/03/2017 12:26 PM PST) + +---------+ + + + | Component | Value | Ref Range | Performed | Pathologist | | | | | At | Signature | + +---------+ + + + | Glucose, | 233 (H) | 70 - 109 mg/dL | [facility] | | | POC | | | [facility] | | | | | [...] [address] | [place] | [phone] | | [facility] | | [address] | | | - LABORATORY | | | | + + + + + POC Glucose (11/03/2017 10:45 AM PST) + +---------+ + + + | Component | Value | Ref Range | Performed | Pathologist | | | | | At | Signature | + +---------+ + + + | Glucose, | 189 (H) | 70 - 109 mg/dL | [...] + | [facility] | [address] | [place] | [phone] | | [facility] | | [address] | | | - LABORATORY | | | | + + + + + CT Chest wo Contrast (11/03/2017 10:15 AM PST) + + | Specimen | + + | | + + + + + | Narrative | Performed At | + + + | TECHNIQUE: Noncontrast axial CT imaging was obtained through the | [facility] | | chest with coronal and sagittal reformats. CLINICAL INFORMATION: | | | Eval for PNA COMPARISON: CT chest dated 12/06/[address] | | | 11/02/2017. Chest radiograph 11/02/2017. FINDINGS: BONES: No | | | osteoblastic or osteolytic lesion. CHEST: Chest Wall: Normal. | | | Mediastinum and aria: Mildly enlarged multiple mediastinal lymph | | | nodes, the largest is precarinal and measures approximately 10 mm in | | | short axis. Heart and pericardium: Heart size is normal. No | | | pericardial effusion. Vessels: Prominent coronary artery | | | calcifications. Normal caliber of the thoracic aorta with mild | | | vascular calcifications. Bulky calcifications are noted at the | | | origin of the left subclavian artery. Lungs: Large right lower | | | lobe superior segment airspace consolidation with additional smaller | | | consolidation involving the posterior inferior aspect of the right | | | upper lobe. Minimal atelectasis at the right lower lobe. Large | | | posterior left lower lobe airspace consolidation. Minimal | | | scarring/atelectasis at the left upper lobe. No pleural effusion or | | | pneumothorax. UPPER ABDOMEN: No focal abnormality. | | | IMPRESSION - Airspace consolidation at the superior right lower lobe, | | | posterior right upper lobe and posterior left lower lobe, most | | | consistent with moderate multifocal pneumonia. Mildly enlarged | | | mediastinal lymph nodes, likely reactive change. Probable | | | significant stenosis at the proximal left subclavian artery. | | | Prominent coronary artery calcifications. Dictated and Signed by: | | | Akash Ashraf MD Electronically signed: 11/03/2017 12:31 PM | | + + + + + | Procedure Note | + + | Julian, Rad Results In - 11/03/2017 12:34 PM PST | | TECHNIQUE: Noncontrast axial CT imaging was obtained through the chest with | | coronal and sagittal reformats. | | | | CLINICAL INFORMATION: Eval for PNA | | | | COMPARISON: CT chest dated 12/06/[address] 11/02/2017. Chest | | radiograph 11/02/2017. | | | | FINDINGS: | | BONES: No osteoblastic or osteolytic lesion. | | | | CHEST: | | Chest Wall: Normal. | | | | Mediastinum and aria: Mildly enlarged multiple mediastinal lymph nodes, the | | largest is precarinal and measures approximately 10 mm in short axis. | | Heart and pericardium: Heart size is normal. No pericardial effusion. | | Vessels: Prominent coronary artery calcifications. Normal caliber of the | | thoracic aorta with mild vascular calcifications. Bulky calcifications are | | noted at the origin of the left subclavian artery. | | | | Lungs: Large right lower lobe superior segment airspace consolidation with | | additional smaller consolidation involving the posterior inferior aspect of the | | right upper lobe. Minimal atelectasis at the right lower lobe. Large posterior | | left lower lobe airspace consolidation. Minimal scarring/atelectasis at the | | left upper lobe. No pleural effusion or pneumothorax. | | | | UPPER ABDOMEN: No focal abnormality. | | | | | | IMPRESSION - | | Airspace consolidation at the superior right lower lobe, posterior right upper | | lobe and posterior left lower lobe, most consistent with moderate multifocal | | pneumonia. | | | | Mildly enlarged mediastinal lymph nodes, likely reactive change. | | | | Probable significant stenosis at the proximal left subclavian artery. | | | | Prominent coronary artery calcifications. | | | | Dictated and Signed by: Akash Ashraf MD | | Electronically signed: 11/03/2017 12:31 PM | + + + +---------+ + + | Performing | Address | City/State/Zipcode | Phone Number | | Organization | | | | + +---------+ + + | [facility] | | | | + +---------+ + + POC Glucose (11/03/2017 8:30 AM PST) + +---------+ + + + | Component | Value | Ref Range | Performed | Pathologist | | | | | At | Signature | + +---------+ + + + | Glucose, | 187 (H) | 70 - 109 mg/dL | [...] [address] | [place] | [phone] | | [facility] | | [id number] | | | - LABORATORY | | | | + + + + + Culture, Blood (11/03/2017 8:12 AM PST) + + + + + + | Component | Value | Ref Range | Performed | Pathologist | | | | | At | Signature | + + + + + + | Culture | Positive Blood Culture | | [facility] | | | | ([facility] | [facility] | [facility] | [facility] | [facility] - | | | | | | LABORATORY | | + + + + + + | Culture | Staphylococcus | | [facility] | | | | epidermidisComment: In 2 | | ST. [facility] | | | | of 4 bottles drawn this | | MEDICAL | | | | date | | CENTER - | | | | | | LABORATORY | | + + + + + + | Gram Stain | Gram positive cocci in | | [facility] | | | Result | clustersComment: 2 of 4 | | [facility] | | | | bottles positive | | MEDICAL | | | | | | CENTER - | | | | | | LABORATORY | | + + + + + + + + | Specimen | + + | Blood - Left upper | | arm structure (body | | structure) | + + + + +--------+ + | Organism | Antibiotic | Method | Susceptibility | + + +--------+ + | Staphylococcus | Ciprofloxacin | | <=0.5 ug/mL: | | epidermidis | | | Sensitive | + + +--------+ + | Staphylococcus | Clindamycin | | <=0.25 ug/mL: | | epidermidis | | | Sensitive | + + +--------+ + | Staphylococcus | Oxacillin | | >=4 ug/mL: | | epidermidis | | | Resistant | + + +--------+ + | Staphylococcus | Penicillin G | | >=0.5 ug/mL: | | epidermidis | | | Resistant | + + +--------+ + | Staphylococcus | Rifampin | | <=0.5 ug/mL: | | epidermidis | | | Sensitive | + + +--------+ + | Staphylococcus | Tetracycline | | >=16 ug/mL: | | epidermidis | | | Resistant | + + +--------+ + | Staphylococcus | Trimethoprim + | | 80 ug/mL: | | epidermidis | Sulfamethoxazole | | Resistant | + + +--------+ + | Staphylococcus | Vancomycin | | 2 ug/mL: Sensitive | | epidermidis | | | | + + +--------+ + + + + + + | Performing | Address | City/State/Zipcode | Phone Number | | Organization | | | | + + + + + | [facility] | [address] | [place] | [phone] | | [facility] | | [address] | | | - LABORATORY | | | | + + + + + Culture, Respiratory, Lower, Smear (11/03/2017 7:27 AM PST) + + + + + + | Component | Value | Ref Range | Performed | Pathologist | | | | | At | Signature | + + + + + + | Culture | 3+ Usual Respiratory | | [facility] | | | | [facility] | | [facility] | | | | | | MEDICAL | | | | | | CENTER - | | | | | | LABORATORY | | + + + + + + | Culture | 2+ Maribeth albicans | | [facility] | | | | | [facility] | | | | | | MEDICAL | | | | | | CENTER - | | | | | | LABORATORY | | + + + + + + | Gram Stain | 3+ White Blood Cells | | [facility] | | | Result | | | [facility] | | | | | | MEDICAL | | | | | | CENTER - | | | | | | LABORATORY | | + + + + + + | Gram Stain | 2+ Epithelial cells | | [facility] | | | Result | | | [facility] | | | | | | MEDICAL | | | | | | CENTER - | | | | | | LABORATORY | | + + + + + + | Gram Stain | 2+ Gram positive cocci | | [facility] | | | Result | | | [facility] | | | | | | MEDICAL | | | | | | CENTER - | | | | | | LABORATORY | | + + + + + + | Gram Stain | 2+ Gram positive bacilli | | [facility] | | | Result | | | [facility] | | | | | | MEDICAL | | | | | | CENTER - | | | | | | LABORATORY | | + + + + + + | Gram Stain | 1+ Hyphael elements | | [facility] | | | Result | | | [facility] | | | [facility] | | MEDICAL | | | | | | CENTER - | | | | | | LABORATORY | | + + + + + + + + | Specimen | + + | Respiratory - | | Coughed sputum | | specimen (specimen) | + + + + + + + | Performing | Address | City/State/Zipcode | Phone Number | | Organization | | | | + + + + + | [facility] | [address] | [place] | [phone] | | [facility] | | [address] | | | - LABORATORY | | | | + + + + + POC Glucose (11/03/2017 6:25 AM PST) + +---------+ + + + | Component | Value | Ref Range | Performed | Pathologist | | | | | At | Signature | + +---------+ + + + | Glucose, | 172 (H) | 70 - 109 mg/dL | [facility] | | | POC | | | [facility] | | | [...] + | [facility] | [address] | [place] | [phone] | | [facility] | | [address] | | | - LABORATORY | | | | + + + + + Hepatitis A IgM Ab, Confirm (11/03/2017 5:02 AM PST) + + + + + + | Component | Value | Ref Range | Performed | Pathologist | | | | | At | Signature | + + + + + + | HEP A IGM | Negative | Negative | [facility] | | | AB, REF | | | LAB [facility] | | | | | | - [facility] | | + + + + + + + + | Specimen | + + | Blood | + + + + + | Narrative | Performed At | + + + | Performed at: 01 - [facility] [place] [address], | REFERENCE LAB | | [place], [place] [id number] Healthcare Specialist: Ernie Lee MD, Phone: | [facility] | | [phone] | | + + + + + + + + | Performing | Address | City/State/Zipcode | Phone Number | | Organization | | | | + + + + + | [facility] | [address] | [place], [place] | [phone] | | [facility] | [place] | [address] | | + + + + + Phosphorus (11/03/2017 5:02 AM PST) + +---------+ + + + | Component | Value | Ref Range | Performed | Pathologist | | | | | At | Signature | + +---------+ + + + | Phosphorus | 4.7 (H) | 2.5 - 4.6 mg/dL | [facility] | | | | [...] [address] | [place] | [phone] | | [facility] | | [address] | | | - LABORATORY | | | | + + + + + Magnesium (11/03/2017 5:02 AM PST) + +-------+ + + + | Component | Value | Ref Range | Performed | Pathologist | | | | | At | Signature | + +-------+ + + + | Magnesium | 2.0 | 1.8 - 2.5 mg/dL | [facility] | | | | [...] + | [facility] | [address] | [place] | [phone] | | [facility] | | [address] | | | - LABORATORY | | | | + + + + + CBC with Differential (11/03/2017 5:02 AM PST) + + + + + + | Component | Value | Ref Range | Performed | Pathologist | | | | | At | Signature | + + + + + + | White Blood | 10.7 | 4.0 - 11.0 K/uL | [facility] | | | Cells | | | [facility] | | | | | | MEDICAL | | | | | | CENTER - | | | | | | LABORATORY | | + + + + + + | Red Blood | 2.97 (L) | 3.70 - 5.20 | [facility] | | | Cells | | M/uL | [facility] | | | | | | MEDICAL | | | | | | CENTER - | | | | | | LABORATORY | | + + + + + + | Hemoglobin | 9.0 (L) | 11.5 - 16.0 | [facility] | | | | | g/dL | [facility] | | | | | | MEDICAL | | | | | | CENTER - | | | | | | LABORATORY | | + + + + + + | Hematocrit | 27.0 (L) | 34.0 - 47.0 % | [facility] | | | | | | [facility] | | | | | | MEDICAL | | | | | | CENTER - | | | | | | LABORATORY | | + + + + + + | MCV | 90.9 | 83.0 - 101.0 fL | [facility] [...] + + + + | Platelet | 142 | 140 - 440 K/uL | [facility] | | | Count | | | [facility] | | | | | | MEDICAL | | | | | | CENTER - | | | | | | LABORATORY | | + + + + + + | MPV | 9.2 | fL | [facility] | | | | | | [facility] | | | | | | MEDICAL | | | | | | CENTER - | | | | | | LABORATORY | | + + + + + + | % | 88.6 (H) | 45.0 - 82.0 % | [facility] | | | Neutrophils | | | [facility] | | | | | | MEDICAL | | | | | | CENTER - | | | | | | LABORATORY | | + + + + + + | % | 9.4 (L) | 20.0 - 45.0 % | [facility] | | | Lymphocytes | | | [facility] | | | | | | MEDICAL | | | | | | CENTER - | | | | | | LABORATORY | | + + + + + + | % Monocytes | 1.8 (L) | 4.0 - 12.0 % | [facility] | | | | | | [facility] | | | | | | MEDICAL | | | | | | CENTER - | | | | | | LABORATORY | | + + + + + + | % | 0.0 | 0.0 - 5.0 % | [facility] [...] + + + + | Absolute | 9.50 (H) | 1.80 - 8.50 | [facility] | | | Neutrophils | | K/uL | [facility] | | | | | | MEDICAL | | | | | | CENTER - | | | | | | LABORATORY | | + + + + + + | Absolute | 1.00 | 0.60 - 3.20 | [facility] | [...] | Absolute | 0.00 | 0.00 - 0.40 | [facility] | [address] | [place] | [phone] | | [facility] | | [address] | | | - LABORATORY | | | | + + + + + Hepatitis A, B, C Ruby Peralta (11/03/2017 5:02 AM PST) + + + + + + | Component | Value | Ref Range | Performed | Pathologist | | | | | At | Signature | + + + + + + | HEP A TOTAL | Positive (A) | Negative | [facility] | | | AB | | | LAB [facility] | | | | | | - [facility] | | + + + + + + | Hepatitis B | Negative | Negative | [facility] | | | Surface Ag | | | LAB [facility] | | | | | | - [facility] | | + + + + + + | Hepatitis B | Negative | Negative | [facility] | | | Core Ab, | | | LAB [facility] | | | Total | | | - [facility] | | + + + + + + | Hepatitis C | 0.3Comment: | 0.0 - 0.9 s/co | [facility] | | | Ab | | ratio | LAB [facility] | | | | Negative: | | - [facility] | | | | < 0.8 | | | | | | | | | | | | Indeterminate: | | | | | | 0.8 - 0.9 | | | | | | | | | | | | Positive: | | | | | | > 0.9 The [facility] | | | | | | recommends that a | | | | | | positive HCV antibody | | | | | | result be followed up | | | | | | with a HCV Nucleic Acid | | | | | | Amplification test | | | | | | ([id number]). | | | | + + + + + + + + | Specimen | + + | Blood | + + + + + | Narrative | Performed At | + + + | Performed at: - [place] [address], | REFERENCE LAB | | [place], [place] [id number] Healthcare Specialist: Ernie Lee MD, Phone: | [facility] | | [phone] | | + + + + + + + + | Performing | Address | City/State/Zipcode | Phone Number | | Organization | | | | + + + + + | [facility] | [address] | [place], [place] | [phone] | | [facility] | [place] | [address] | | + + + + + Basic Metabolic Panel (11/03/2017 5:02 AM PST) + + + + + [...] + + + + | K | 4.5 | 3.5 - 5.1 | [facility] | | | | | mmol/L | [facility] | | | | | | MEDICAL | | | | | | CENTER - | | | | | | LABORATORY | | + + + + + + | Cl | 102 | 98 - 109 mmol/L | [facility] | | | | | | [facility] | | | | | | MEDICAL | | | | | | CENTER - | | | | | | LABORATORY | | + + + + + + | CO2 | 23 (L) | 24 - 31 mmol/L | [facility] | | | | | | [facility] | | | | | | MEDICAL | | | | | | CENTER - | | | | | | LABORATORY | | + + + + + + | Anion Gap | 10 | 3 - 16 mmol/L | [facility] | | | | | | [facility] | | | | | | MEDICAL | | | | | | CENTER - | | | | | | LABORATORY | | + + + + + + | Glucose | 173 (H) | 70 - 109 mg/dL | [facility] | | | | | [facility] | | | | | | MEDICAL | | | | | | CENTER - | | | | | | LABORATORY | | + + + + + + | BUN | 56 (H) | 7 - 18 mg/dL | [facility] | | | | | [facility] | | | | | | MEDICAL | | | | | | CENTER - | | | | | | LABORATORY | | + + + + + + | Creatinine | 3.65 (H) | 0.60 - 1.30 | [facility] | | | | | mg/dL | [facility] | | | | | | MEDICAL | | | | | | CENTER - | | | | | | LABORATORY | | + + + + + + | eGFR if not | 12 (L)Comment: | >=60 | [facility] | | | | GLOMERULAR FILTRATION | mL/min/1.73m2 | [facility] | | | YEMENI | RATE,ESTIMATED | | MEDICAL | | | | mL/min/1.87j4Pvoz than | | CENTER - | | [...] | | | | | mg/dL | [facility] | | | | | | MEDICAL | | | | | | CENTER - | | | | | | LABORATORY | | + + + + + + | BUN/Creatin | 15.3 | | [facility] | | | ine Ratio | | | [facility] | | [...] [address] | [place] | [phone] | | [facility] | | [address] | | | - LABORATORY | | | | + + + + + POC Glucose (11/03/2017 4:09 AM PST) + +---------+ + + + [...] + | [facility] | [address] | [place] | [phone] | | [facility] | | [address] | | | - LABORATORY | | | | + + + + + POC Glucose (11/03/2017 12:45 AM PST) + +---------+ + + + | Component | Value | Ref Range | Performed | Pathologist | | | | | At | Signature | + +---------+ + + + | Glucose, | 189 (H) | 70 - 109 mg/dL | [...] [address] | [place] | [phone] | | [facility] | | [address] | | | - LABORATORY | | | | + + + + + POC Glucose (11/02/2017 10:17 PM PST) + +---------+ + + + | Component | Value | Ref Range | Performed | Pathologist | | | | | At | Signature | + +---------+ + + + | Glucose, | 170 (H) | 70 - 109 mg/dL | [facility] | | | POC | | | [facility] | | | [...] [address] | [place] | [phone] | | [facility] | | [address] | | | - LABORATORY | | | | + + + + + POC Glucose (11/02/2017 7:42 PM PST) + +---------+ + + + | Component | Value | Ref Range | Performed | Pathologist | | | | | At | Signature | + +---------+ + + + | Glucose, | 167 (H) | 70 - 109 mg/dL | [...] ST. | [address] | [place], [place] | [phone] | | [facility] | | [address] | | | - LABORATORY | | | | + + + + + CT Abdomen Pelvis wo Contrast (11/02/2017 7:27 PM PST) + + | Specimen | + + | | + + + + + | Narrative | Performed At | + + + | CT ABDOMEN PELVIS WO CONTRAST 11/02/2017 7:27 PM HISTORY: Eval | [facility] | | for signs intra-abdominal infection. COMPARISON: 10/05/2017 and | | | 12/06/2007 PROTOCOL: Axial images of the abdomen and pelvis were | | | obtained. Coronal and sagittal reformations were acquired. | | | FINDINGS: Extensive groundglass consolidation is seen within the | | | dependent portions of the posterior left lower lobe, concerning for | | | pneumonia. Prominent mitral annular calcifications are present. There | | | is a moderate sized sliding type hiatal hernia. Mild bilateral | | | dependent pleural thickening and subsegmental atelectasis. Normal | | | noncontrast appearance of the liver, distended gallbladder, and the | | | biliary and pancreatic ducts. Atrophic appearance of the pancreas. | | | Normal noncontrast appearance of the spleen and right adrenal gland. | | | There is mild nodular thickening of the left adrenal gland which is | | | nonspecific. Mild bilateral perinephric fat stranding. No | | | suspicious mass, hydronephrosis, or hydroureter. No renal calculi | | | identified. Prominent areas seen within the anterior bladder, | | | possibly related to recent Al catheterization, please correlate | | | clinically. Uterus is surgically absent. Multiple noninflamed | | | colonic diverticula are identified. Moderate volume of colonic stool | | | retention. Mild diffuse truncal soft tissue swelling/edema. | | | Mild to moderate aortic atherosclerosis. Prominent calcification is | | | seen at the origin of bilateral renal arteries. No evidence of | | | suspicious lymphadenopathy. No evidence of free fluid or free air. | | | Cortically based focal sclerosis is seen along the anterior right | | | sacrum and anterior aspect of the right femoral head. Multilevel | | | degenerative changes of the thoracolumbar spine. Mild bilateral hip | | | degenerative changes. IMPRESSION - 1. Extensive groundglass | | | consolidation is seen within the dependent portions of the posterior | | | left lower lobe, concerning for pneumonia. 2. Prominent air is seen | | | within the anterior bladder, possibly related to recent Al | | | catheterization, please correlate clinically if there is concern for | | | infection. 3. Otherwise, no other acute intra-abdominal abnormality | | | identified. Dictated and Signed by: Itz Madsen MD | | | Electronically signed: 11/02/2017 8:27 PM | | + + + + + | Procedure Note | + + | Julian, Rad Results In - 11/02/2017 8:[address] ABDOMEN PELVIS WO CONTRAST 11/02/2017 | | 7:27 PMHISTORY: Eval for signs intra-abdominal infection.COMPARISON: 10/05/2017 and | | 12/06/2007PROTOCOL: Axial images of the abdomen and pelvis were obtained. Coronal | | andsagittal reformations were acquired.FINDINGS:Extensive groundglass consolidation is | | seen within the dependent portions of theposterior left lower lobe, concerning for | | pneumonia. Prominent mitral annularcalcifications are present. There is a moderate sized | | sliding type hiatalhernia. Mild bilateral dependent pleural thickening and | | subsegmentalatelectasis.Normal noncontrast appearance of the liver, distended | | gallbladder, and thebiliary and pancreatic ducts. Atrophic appearance of the pancreas. | | Normalnoncontrast appearance of the spleen and right adrenal gland. There is mildnodular | | thickening of the left adrenal gland which is nonspecific.Mild bilateral perinephric | | fat stranding. No suspicious mass, hydronephrosis, orhydroureter. No renal calculi | | identified.Prominent areas seen within the anterior bladder, possibly related to | | recentFoley catheterization, please correlate clinically. Uterus is surgically | | absent.Multiple noninflamed colonic diverticula are identified. Moderate volume | | ofcolonic stool retention.Mild diffuse truncal soft tissue swelling/edema.Mild to | | moderate aortic atherosclerosis. Prominent calcification is seen at theorigin of | | bilateral renal arteries. No evidence of suspicious lymphadenopathy.No evidence of free | | fluid or free air.Cortically based focal sclerosis is seen along the anterior right | | sacrum andanterior aspect of the right femoral head. Multilevel degenerative changes | | ofthe thoracolumbar spine. Mild bilateral hip degenerative changes.IMPRESSION -1. | | Extensive groundglass consolidation is seen within the dependent portions ofthe | | posterior left lower lobe, concerning for pneumonia.2. Prominent air is seen within the | | anterior bladder, possibly related to recentFoley catheterization, please correlate | | clinically if there is concern forinfection.3. Otherwise, no other acute intra-abdominal | | abnormality identified. Dictated and Signed by: Itz Madsen MD Electronically | | signed: 11/02/2017 8:27 PM | | | |Multiple noninflamed colonic diverticula are identified. Moderate volume of | |colonic stool retention. | | | |Mild diffuse truncal soft tissue swelling/edema. | | | |Mild to moderate aortic atherosclerosis. Prominent calcification is seen at the | |origin of bilateral renal arteries. No evidence of suspicious lymphadenopathy. | |No evidence of free fluid or free air. | | | |Cortically based focal sclerosis is seen along the anterior right sacrum and | |anterior aspect of the right femoral head. Multilevel degenerative changes of | |the thoracolumbar spine. Mild bilateral hip degenerative changes. | | | |IMPRESSION - | |1. Extensive groundglass consolidation is seen within the dependent portions of | |the posterior left lower lobe, concerning for pneumonia. | |2. Prominent air is seen within the anterior bladder, possibly related to recent | |Al catheterization, please correlate clinically if there is concern for | |infection. | |3. Otherwise, no other acute intra-abdominal abnormality identified. | | | |Dictated and Signed by: Itz Madsen MD | | Electronically signed: 11/02/2017 8:27 PM | + + + +---------+ + + | Performing | Address | City/State/Zipcode | Phone Number | | Organization | | | | + +---------+ + + | [facility] | | | | + +---------+ + + POC Glucose (11/02/2017 6:14 PM PST) + +---------+ + + + | Component | Value | Ref Range | Performed | Pathologist | | | | | At | Signature | + +---------+ + + + | Glucose, | 166 (H) | 70 - 109 mg/dL | [...] [address] | [place] | [phone] | | [facility] | | [address] | | | - LABORATORY | | | | + + + + + POC Glucose (11/02/2017 4:15 PM PST) + +---------+ + + + | Component | Value | Ref Range | Performed | Pathologist | | | | | At | Signature | + +---------+ + + + | Glucose, | 124 (H) | 70 - 109 mg/dL | [...] [address] | [place] | [phone] | | [facility] | | [address] | | | - LABORATORY | | | | + + + + + POC Glucose (11/02/2017 3:02 PM PST) + +-------+ + + + | Component | Value | Ref Range | Performed | Pathologist | | | | | At | Signature | + +-------+ + + + | Glucose, | 86 | 70 - 109 mg/dL | [facility] [...] + | [facility] | [address] | [place] | [phone] | | [facility] | | [address] | | | - LABORATORY | | | | + + + + + POC Glucose (11/02/2017 1:35 PM PST) + +-------+ + + + | Component | Value | Ref Range | Performed | Pathologist | | | | | At | Signature | + +-------+ + + + | Glucose, | 76 | 70 - 109 mg/dL | [facility] [...] [address] | [place] | [phone] | | [facility] | | [address] | | | - LABORATORY | | | | + + + + + POC Glucose (11/02/2017 12:27 PM PST) + +-------+ + + + | Component | Value | Ref Range | Performed | Pathologist | | | | | At | Signature | + +-------+ + + + | Glucose, | 87 | 70 - 109 mg/dL | [facility] [...] [address] | [place] | [phone] | | [facility] | | [address] | | | - LABORATORY | | | | + + + + + POC Glucose (11/02/2017 11:03 AM PST) + +-------+ + + + | Component | Value | Ref Range | Performed | Pathologist | | | | | At | Signature | + +-------+ + + + | Glucose, | 80 | 70 - 109 mg/dL | [facility] [...] [address] | [place] | [phone] | | [facility] | | [address] | | | - LABORATORY | | | | + + + + + Influenza A and B RNA, NAAT (11/02/2017 10:50 AM PST) + + + + + + | Component | Value | Ref Range | Performed | Pathologist | | | | | At | Signature | + + + + + + | Influenza A | Negative | Negative | [facility] | | | PCR | | | [facility] | | | | | | MEDICAL | | | | | | CENTER - | | | | | | LABORATORY | | + + + + + + | Influenza B | Negative | Negative | [facility] | | | PCR | | | [facility] | | | [...] [address] | [place] | [phone] | | [facility] | | [address] | | | - LABORATORY | | | | + + + + + POC Glucose (11/02/2017 10:34 AM PST) + +-------+ + + + | Component | Value | Ref Range | Performed | Pathologist | | | | | At | Signature | + +-------+ + + + | Glucose, | 74 | 70 - 109 mg/dL | [facility] [...] [address] | [place] | [phone] | | [facility] | | [address] | | | - LABORATORY | | | | + + + + + POC Glucose (11/02/2017 10:18 AM PST) + +-------+ + + + | Component | Value | Ref Range | Performed | Pathologist | | | | | At | Signature | + +-------+ + + + | Glucose, | 76 | 70 - 109 mg/dL | [facility] [...] | [facility] | [address] | [place] | [phone] | | [facility] | | [address] | | | - LABORATORY | | | | + + + + + POC Glucose (11/02/2017 10:05 AM PST) + +--------+ + + + | Component | Value | Ref Range | Performed | Pathologist | | | | | At | Signature | + +--------+ + + + | Glucose, | 58 (L) | 70 - 109 mg/dL | [facility] | | | POC | | | [facility] | | | | | | MEDICAL | | | | | | CENTER - | | | | | | LABORATORY | | + +--------+ + + + + + | Specimen | + + | Blood | + + + + + + + | Performing | Address | City/State/Zipcode | Phone Number | | Organization | | | | + + + + + | [facility] | [address] | [place], [place] | [phone] | | [facility] | | [address] | | | - LABORATORY | | | | + + + + + POC Glucose (11/02/2017 9:49 AM PST) + +--------+ + + + | Component | Value | Ref Range | Performed | Pathologist | | | | | At | Signature | + +--------+ + + + | Glucose, | 50 (L) | 70 - 109 mg/dL | [facility] | | | POC | | | [facility] | | | | | | MEDICAL | | | | | | CENTER - | | | | | | LABORATORY | | + +--------+ + + + + + | Specimen | + + | Blood | + + + + + + + | Performing | Address | City/State/Zipcode | Phone Number | | Organization | | | | + + + + + | [facility] | [address] | [place] | [phone] | | [facility] | | [address] | | | - LABORATORY | | | | + + + + + XR Chest AP Portable (11/02/2017 8:14 AM PST) + + | Specimen | + + | | + + + + + | Narrative | Performed At | + + + | XR CHEST AP PORTABLE 11/02/2017 8:14 AM HISTORY: Eval for PNA. | [facility] | | COMPARISON: Multiple priors. Findings: Heart size is within | | | normal limits. There is atherosclerosis of the aorta. Mediastinum is | | | unremarkable. Central pulmonary vasculature is normal. Mild scarring | | | are in the lung apices. Overlapping pneumonitis cannot be excluded. | | | Mild to moderate spondylosis is visualized. IMPRESSION - Mild | | | scarring in lung apices. Overlapping pneumonitis cannot be excluded. | | | Dictated and Signed by: Salvatore Nunez MD Electronically signed: | | | 11/02/2017 11:56 AM | | + + + + + | Procedure Note | + + | Julian, Rad Results In - 11/02/2017 11:59 AM PST XR CHEST AP PORTABLE 11/02/2017 8:14 AM | | | | HISTORY: Eval for PNA. | | | | COMPARISON: Multiple priors. | | | | Findings: | | Heart size is within normal limits. There is atherosclerosis of the aorta. | | Mediastinum is unremarkable. Central pulmonary vasculature is normal. Mild | | scarring are in the lung apices. Overlapping pneumonitis cannot be excluded. | | Mild to moderate spondylosis is visualized. | | | | IMPRESSION - | | Mild scarring in lung apices. Overlapping pneumonitis cannot be excluded. | | | | Dictated and Signed by: Salvatore Nunez MD | | Electronically signed: 11/02/2017 11:56 AM | + + + +---------+ + + | Performing | Address | City/State/Zipcode | Phone Number | | Organization | | | | + +---------+ + + | [facility] | | | | + +---------+ + + Prealbumin (11/02/2017 7:41 AM PST) + +--------+ + + + | Component | Value | Ref Range | Performed | Pathologist | | | | | At | Signature | + +--------+ + + + | Prealbumin | 10 (L) | 18 - 38 mg/dL | [facility] | | | | | | [facility] | | | | | | MEDICAL | | | | | | CENTER - | | | | | | LABORATORY | | + +--------+ + + + + + | Specimen | + + | Blood | + + + + + + + | Performing | Address | City/State/Zipcode | Phone Number | | Organization | | | | + + + + + | [facility] | [address] | [place] | [phone] | | [facility] | | [address] | | | - LABORATORY | | | | + + + + + CBC with Differential (11/02/2017 7:41 AM PST) + + + + + + | Component | Value | Ref Range | Performed | Pathologist | | | | | At | Signature | + + + + + + | White Blood | 8.8 | 4.0 - 11.0 K/uL | [facility] | | | Cells | | | [facility] | | | | | [facility] | | | | | | [facility] - | | | | | | LABORATORY | | + + + + + + | Red Blood | 3.04 (L) | 3.70 - 5.20 | [facility] | | | Cells | | M/uL | [facility] | | | | | [facility] | | | | | | [facility] - | | | | | | LABORATORY | | + + + + + + | Hemoglobin | 9.2 (L) | 11.5 - 16.0 | [facility] | | | | | g/dL | [facility] | | | | | | [facility]ICAL | | | | | | CENTER - | | | | | | LABORATORY | | + + + + + + | Hematocrit | 27.2 (L) | 34.0 - 47.0 % | [facility] | | | | | | [facility] | | | [facility] | | [facility] | | | | | | CENTER - | | | | | | LABORATORY | | + + + + + + | MCV | 89.4 | 83.0 - 101.0 fL | [facility] [...] + + + + | Platelet | 174 | 140 - 440 K/uL | [facility] | | | Count | | | [facility] | | | | | | [facility]ICAL | | | | | | CENTER - | | | | | | LABORATORY | | + + + + + + | MPV | 8.9 | fL | [facility] | | | | | | [facility] | | | | | | [facility] | | | | | | CENTER - | | | | | | LABORATORY | | + + + + + + | % | 78.9 | 45.0 - 82.0 % | [facility] | | | Neutrophils | | | [facility] | | | | | | MEDICAL | | | | | | CENTER - | | | | | | LABORATORY | | + + + + + + | % | 14.6 (L) | 20.0 - 45.0 % | [facility] | | | Lymphocytes | | | [facility] | | | | | | [facility]ICAL | | | | | | CENTER - | | | | | | LABORATORY | | + + + + + + | % Monocytes | 4.3 | 4.0 - 12.0 % | [facility] | | | | | | [facility] | | | | | | [facility] | | | | | | CENTER - | | | | | | LABORATORY | | + + + + + + | % | 1.6 | 0.0 - 5.0 % | [facility] [...] + + + + | Absolute | 7.00 | 1.80 - 8.50 | [facility] | | | Neutrophils | | K/uL | [facility] | | | | | | MEDICAL | | | | | | CENTER - | | | | | | LABORATORY | | + + + + + + | Absolute | 1.30 | 0.60 - 3.20 | [facility] | [...] [address] | [place] | [phone] | | [facility] | | [address] | | | - LABORATORY | | | | + + + + + Phosphorus (11/02/2017 7:41 AM PST) + +---------+ + + + | Component | Value | Ref Range | Performed | Pathologist | | | | | At | Signature | + +---------+ + + + | Phosphorus | 4.8 (H) | 2.5 - 4.6 mg/dL | [facility] | | | | [...] ST. | [address] | [place], [place] | [phone] | | [facility] | | [address] | | | - LABORATORY | | | | + + + + + Magnesium (11/02/2017 7:41 AM PST) + +-------+ + + + | Component | Value | Ref Range | Performed | Pathologist | | | | | At | Signature | + +-------+ + + + | Magnesium | 2.2 | 1.8 - 2.5 mg/dL | [facility] | | | | [...] + | [facility] | [address] | [place] | [phone] | | [facility] | | [address] | | | - LABORATORY | | | | + + + + + Basic Metabolic Panel (11/02/2017 7:41 AM PST) + + + + + [...] + + + + | Cl | 104 | 98 - 109 mmol/L | [facility] | | | | | | [facility] | | | | | | [facility]ICAL | | | | | | CENTER - | | | | | | LABORATORY | | + + + + + + | CO2 | 23 (L) | 24 - 31 mmol/L | [facility] | | | | | | [facility] | | | | | | [facility]ICAL | | | | | | CENTER - | | | | | | LABORATORY | | + + + + + + | Anion Gap | 10 | 3 - 16 mmol/L | [facility] | | | | | | [facility] | | | | | | MEDICAL | | | | | | CENTER - | | | | | | LABORATORY | | + + + + + + | Glucose | 79 | 70 - 109 mg/dL | [facility] | | | | | | [facility] | | | | | [facility] | | | | | | CENTER - | | | | | | LABORATORY | | + + + + + + | BUN | 53 (H) | 7 - 18 mg/dL | [facility] | | | | | | [facility] | | | | | | [facility] | | | | | | CENTER - | | | | | | LABORATORY | | + + + + + + | Creatinine | 3.54 (H) | 0.60 - 1.30 | [facility] | | | | | mg/dL | [facility] | | | | | | MEDICAL | | | | | | CENTER - | | | | | | LABORATORY | | + + + + + + | eGFR if not | 13 (L)Comment: | >=60 | [facility] | | | | GLOMERULAR FILTRATION | mL/min/1.73m2 | [facility] | | | [facility] | RATE,ESTIMATED | | MEDICAL | | | | mL/min/1.06m9Svow than | | CENTER - | | [...] + + + + | BUN/Creatin | 15.0 | | [facility] | | | ine [...] ST. | [address] | [place], [place] | [phone] | | [facility] | | [address] | | | - LABORATORY | | | | + + + + + Culture, Urine (11/02/2017 7:40 AM PST) + + + + + + | Component | Value | Ref Range | Performed | Pathologist | | | | | At | Signature | + + + + + + | Culture | >100,000 CFU/ml | | [facility] | | | | Escherichia coli | | [facility] | | | | | | MEDICAL | | | | | | CENTER - | | | | | | LABORATORY | | + + + + + + + + | Specimen | + + | Urine | + + + + +--------+ + | Organism | Antibiotic | Method | Susceptibility | + + +--------+ + | Escherichia coli | Ampicillin | | >=32 ug/mL: | | | | | Resistant | + + +--------+ + | Escherichia coli | Ampicillin + | | >=32 ug/mL: | | | Sulbactam | | Resistant | + + +--------+ + | Escherichia coli | Cefazolin | | >=64 ug/mL: | | | | | Resistant | + + +--------+ + | Escherichia coli | Cefepime | | <=1 ug/mL: | | | | | Sensitive | + + +--------+ + | Escherichia coli | Cefoxitin | | <=4 ug/mL: | | | | | Sensitive | + + +--------+ + | Escherichia coli | Ceftazidime | | <=1 ug/mL: | | | | | Sensitive | + + +--------+ + | Escherichia coli | Ceftriaxone | | <=1 ug/mL: | | | | | Sensitive | + + +--------+ + | Escherichia coli | Ciprofloxacin | | <=0.25 ug/mL: | | | | | Sensitive | + + +--------+ + | Escherichia coli | Ertapenem | | <=0.5 ug/mL: | | | | | Sensitive | + + +--------+ + | Escherichia coli | Gentamicin | | <=1 ug/mL: | | | | | Sensitive | + + +--------+ + | Escherichia coli | Meropenem | | <=0.25 ug/mL: | | | | | Sensitive | + + +--------+ + | Escherichia coli | Nitrofurantoin | | <=16 ug/mL: | | | | | Sensitive | + + +--------+ + | Escherichia coli | Piperacillin + | | >=128 ug/mL: | | | Tazobactam | | Resistant | + + +--------+ + | Escherichia coli | Tobramycin | | <=1 ug/mL: | | | | | Sensitive | + + +--------+ + | Escherichia coli | Trimethoprim + | | <=20 ug/mL: | | | Sulfamethoxazole | | Sensitive | + + +--------+ + + + + + + | Performing | Address | City/State/Zipcode | Phone Number | | Organization | | | | + + + + + | [facility] | [address] | [place] | [phone] | | [facility] | | [address] | | | - LABORATORY | | | | + + + + + Urinalysis with Microscopic with Culture if Indicated (11/02/2017 7:40 AM PST) + + + + + + | Component | Value | Ref Range | Performed | Pathologist | | | | | At | Signature | + + + + + + | Color, | Yellow | Light Yellow, | [facility] | | | Urine | | Yellow, Straw | [facility] | | | | | | MEDICAL | | | | | | CENTER - | | | | | | LABORATORY | | + + + + + + | Clarity, | Hazy (A) | Clear | [facility] | | | Urine | | | [facility] | | | | | | MEDICAL | | | | | | CENTER - | | | | | | LABORATORY | | + + + + + + | pH, Urine | 6.0 | 5.0 - 8.0 | [facility] | | | | | | [facility] | | | | | | MEDICAL | | | | | | CENTER - | | | | | | LABORATORY | | + + + + + + | Specific | 1.010 | 1.001 - 1.030 | [facility] | | | [place], | | | [facility] | | | Urine | | | MEDICAL | | | | | | CENTER - | | | | | | LABORATORY | | + + + + + + | Protein, | 100 mg/dL (A) | Negative | [facility] | | | Urine | | | [facility] | | | | | | MEDICAL | | | | | | CENTER - | | | | | | LABORATORY | | + + + + + + | Blood, | Small (A) | Negative | [facility] | | | Urine | | | [facility] | | | | | | MEDICAL | | | | | | CENTER - | | | | | | LABORATORY | | + + + + + + | Glucose, | Negative | Negative | [facility] | | | Urine | | | [facility] | | | | | | MEDICAL | | | | | | CENTER - | | | | | | LABORATORY | | + + + + + + | Ketones, | Negative | Negative | [facility] | | | Urine | | | [facility] | | | | | | MEDICAL | | | | | | CENTER - | | | | | | LABORATORY | | + + + + + + | Bilirubin, | Negative | Negative | [facility] | | | Urine | | | [facility] | | | | | | MEDICAL | | | | | | CENTER - | | | | | | LABORATORY | | + + + + + + | Nitrite, | Positive (A) | Negative | [facility] | | | Urine | | | [facility] | | | | | | MEDICAL | | | | | | CENTER - | | | | | | LABORATORY | | + + + + + + | Leukocyte | Moderate (A) | Negative | [facility] | | | Esterase, | | | [facility] | | | Urine | | | MEDICAL | | | | | | CENTER - | | | | | | LABORATORY | | + + + + + + | Urobilinoge | Negative | 0.2 mg/dL, 1.0 | [facility] | | | n, Urine | | mg/dL, Negative | [facility] | | | | | | MEDICAL | | | | | | CENTER - | | | | | | LABORATORY | | + + + + + + | White Blood | 50-100 (A) | 0 - 2 /HPF | [facility] | | | Cells, | | | [facility] | | | Urine | | | MEDICAL | | | | | | CENTER - | | | | | | LABORATORY | | + + + + + + | White Blood | Few (A) | None Seen /HPF | [facility] | | | Cell | | | [facility] | | | Clumps, | | | MEDICAL | | | Urine | | | CENTER - | | | | | | LABORATORY | | + + + + + + | Red Blood | 15-25 (A) | 0 - 2 /HPF | [facility] | | | Cells, | | | [facility] | | | Urine | | | MEDICAL | | | | | | CENTER - | | | | | | LABORATORY | | + + + + + + | Squamous | 5-10 (A) | 0 - 2 /LPF | [facility] | | | Epithelial | | | [facility] | | | Cells, | | | MEDICAL | | | Urine | | | CENTER - | | | | | | LABORATORY | | + + + + + + | Bacteria, | 2+ (A) | Negative /HPF | [facility] | | | Urine | | | [facility] | | | | | | MEDICAL | | | | | | CENTER - | | | | | | LABORATORY | | + + + + + + | Mucus, | Present (A) | Negative /LPF | [facility] | | | Urine | | | [facility] | | | | | | MEDICAL | | | | | | CENTER - | | | | | | LABORATORY | | + + + + + + | Urine | Urine Culture Set Up | | [facility] | | | Comment | | | [facility] | | | | | | MEDICAL | | | | | | CENTER - | | | | | | LABORATORY | | + + + + + + + + | Specimen | + + | Urine | + + + + + + + | Performing | Address | City/State/Zipcode | Phone Number | | Organization | | | | + + + + + | [facility] | [address] | [place] | [phone] | | [facility] | | [address] | | | - LABORATORY | | | | + + + + + Troponin I (11/02/2017 6:15 AM PST) + + + + + [...] | | | | | | [employer] | | | | | [...] [address] | [place] | [phone] | | [facility] | | [address] | | | - LABORATORY | | | | + + + + + POC Glucose (11/02/2017 5:50 AM PST) + +-------+ + + + | Component | Value | Ref Range | Performed | Pathologist | | | | | At | Signature | + +-------+ + + + | Glucose, | 94 | 70 - 109 mg/dL | [facility] [address] | [place] | [phone] | | [facility] | | [address] | | | - LABORATORY | | | | + + + + + POC Glucose (11/02/2017 4:07 AM PST) + +---------+ + + + [...] + | [facility] | [address] | [place] | [phone] | | [facility] | | [address] | | | - LABORATORY | | | | + + + + + POC Glucose (11/02/2017 2:01 AM PST) + +---------+ + + + | Component | Value | Ref Range | Performed | Pathologist | | | | | At | Signature | + +---------+ + + + | Glucose, | 160 (H) | 70 - 109 mg/dL | [facility] | | | POC | | | [facility] | | | | | [...] + | [facility] | [address] | [place] | [phone] | | [facility] | | [address] | | | - LABORATORY | | | | + + + + + CBC with Differential (11/02/2017 12:30 AM PST) + + + + + + | Component | Value | Ref Range | Performed | Pathologist | | | | | At | Signature | + + + + + + | White Blood | 7.9 | 4.0 - 11.0 K/uL | [facility] | | | Cells | | | [facility] | | | | | | MEDICAL | | | | | | CENTER - | | | | | | LABORATORY | | + + + + + + | Red Blood | 3.01 (L) | 3.70 - 5.20 | [facility] | | | Cells | | M/uL | [facility] | | | | | | MEDICAL | | | | | | CENTER - | | | | | | LABORATORY | | + + + + + + | Hemoglobin | 9.0 (L) | 11.5 - 16.0 | [facility] | | | | | g/dL | [facility] | | | | | | MEDICAL | | | | | | CENTER - | | | | | | LABORATORY | | + + + + + + | Hematocrit | 27.2 (L) | 34.0 - 47.0 % | [facility] | | | | | | [facility] | | | | | | MEDICAL | | | | | | CENTER - | | | | | | LABORATORY | | + + + + + + | MCV | 90.5 | 83.0 - 101.0 fL | [facility] | | | | | | [facility] | | | | | | MEDICAL | | | | | | CENTER - | | | | | | LABORATORY | | + + + + + + | MCH | 30.1 | 28.0 - 35.0 pg | [facility] [...] + + + + | Platelet | 168 | 140 - 440 K/uL | [facility] | | | Count | | | [facility] | | | | | | MEDICAL | | | | | | CENTER - | | | | | | LABORATORY | | + + + + + + | MPV | 9.0 | fL | [facility] | | | | | | [facility] | | | | | | MEDICAL | | | | | | CENTER - | | | | | | LABORATORY | | + + + + + + | % | 75.8 | 45.0 - 82.0 % | [facility] | | | Neutrophils | | | [facility] | | | | | | MEDICAL | | | | | | CENTER - | | | | | | LABORATORY | | + + + + + + | % | 17.8 (L) | 20.0 - 45.0 % | [facility] | | | Lymphocytes | | | [facility] | | | | | | MEDICAL | | | | | | CENTER - | | | | | | LABORATORY | | + + + + + + | % Monocytes | 4.8 | 4.0 - 12.0 % | [facility] | | | | | | [facility] | | | | | | MEDICAL | | | | | | CENTER - | | | | | | LABORATORY | | + + + + + + | % | 1.3 | 0.0 - 5.0 % | [facility] | | | Eosinophils | | | [facility] | | | | | | MEDICAL | | | | | | CENTER - | | | | | | LABORATORY | | + + + + + + | % Basophils | 0.3 | 0.0 - 1.0 % | [facility] | | | | | | [facility] | | | | | | MEDICAL | | | | | | CENTER - | | | | | | LABORATORY | | + + + + + + | Absolute | 6.00 | 1.80 - 8.50 | [facility] | | | Neutrophils | | K/uL | [facility] | | | | | | MEDICAL | | | | | | CENTER - | | | | | | LABORATORY | | + + + + + + | Absolute | 1.40 | 0.60 - 3.20 | [facility] | [address] | [place] | [phone] | | [facility] | | [address] | | | - LABORATORY | | | | + + + + + Culture, Blood (11/02/2017 12:24 AM PST) + + + + + + | Component | Value | Ref Range | Performed | Pathologist | | | | | At | Signature | + + + + + + | Culture | No growth after 5 days | | [facility] | | | | incubation. | | [facility] | | | | | | MEDICAL | | | | | | CENTER - | | | | | | LABORATORY | | + + + + + + + + | Specimen | + + | Blood - Peripheral | | blood specimen | | (specimen) | + + + + + + + | Performing | Address | City/State/Zipcode | Phone Number | | Organization | | | | + + + + + | [facility] | [address] | [place] | [phone] | | [facility] | | [address] | | | - LABORATORY | | | | + + + + + Procalcitonin (11/02/2017 12:19 AM PST) + + + + + + | Component | Value | Ref Range | Performed | Pathologist | | | | | At | Signature | + + + + + + | Procalciton | 0.07 | <=0.50 ng/mL | [facility] | | | in | | | [facility] | | | | | | MEDICAL | | | | | | CENTER - | | | | | | LABORATORY | | + + + + + + | Comment | Comment: < 0.50 | | [facility] | | | | ng/mL:Procalcitonin | | [facility] | | | | levels below 0.50 [address] | [place] | [phone] | | [facility] | | [address] | | | - LABORATORY | | | | + + + + + TSH (11/02/2017 12:19 AM PST) + + + + + + | Component | Value | Ref Range | Performed | Pathologist | | | | | At | Signature | + + + + + + | TSH | 0.92Comment: This is a | 0.45 - 5.33 | [facility] | | | | third generation TSH | uIU/mL | [facility] | | | | test. | | MEDICAL | | | | [...] [address] | [place] | [phone] | | [facility] | | [address] | | | - LABORATORY | | | | + + + + + Troponin I (11/02/2017 12:19 AM PST) + + + + + [...] | | | | | | [employer] | | | | | [...] + + | Performing | Address | City/State/[facility] | Phone Number | | Organization | | | | + + + + + | [facility] | [address] | [place] | [phone] | | [facility] | | [address] | | | - LABORATORY | | | | + + + + + Culture, Blood (11/02/2017 12:19 AM PST) + + + + + + | Component | Value | Ref Range | Performed | Pathologist | | | | | At | Signature | + + + + + + | Culture | Positive Blood Culture | | [facility] | | | | (AA) | | [facility] | | | | | | MEDICAL | | | | | | CENTER - | | | | | | LABORATORY | | + + + + + + | Culture | Streptococcus | | [facility] | | | | infantarius ssp. coli | | [facility] | | | | (S.bovis) | | MEDICAL | | | | | | CENTER - | | | | | | LABORATORY | | + + + + + + | Gram Stain | Gram positive cocci in | | [facility] | | | Result | chainsComment: Two of | | [facility] | | | | four Blood Culture | | MEDICAL | | | | bottles POSITIVE. | | CENTER - | | | | Critical Result called | | LABORATORY | | | | to and read back by | | | | | | Kristen Irving on | | | | | | 11/02/2017 at 15:14 by | | | | | | Edison Short. | | | | + + + + + + + + | Specimen | + + | Blood - Peripheral | | blood specimen | | (specimen) | + + + + + | Narrative | Performed At | + + + | | [facility] | | | [facility] | | | - LABORATORY | + + + + + +--------+ + | Organism | Antibiotic | Method | Susceptibility | + + +--------+ + | Streptococcus | Ampicillin | | <=0.25 ug/mL: | | infantarius ssp coli | | | Sensitive | + + +--------+ + | Streptococcus | Clindamycin | | <=0.25 ug/mL: | | infantarius ssp coli | | | Sensitive | + + +--------+ + | Streptococcus | Erythromycin | | <=0.12 ug/mL: | | infantarius ssp coli | | | Sensitive | + + +--------+ + | Streptococcus | Levofloxacin | | 2 ug/mL: Sensitive | | infantarius ssp coli | | | | + + +--------+ + | Streptococcus | Linezolid | | <=2 ug/mL: | | infantarius ssp coli | | | Sensitive | + + +--------+ + | Streptococcus | Moxifloxacin | | 0.5 ug/mL: | | infantarius ssp coli | | | Sensitive | + + +--------+ + | Streptococcus | Penicillin G | | <=0.06 ug/mL: | | infantarius ssp coli | | | Sensitive | + + +--------+ + | Streptococcus | Tetracycline | | >=16 ug/mL: | | infantarius ssp coli | | | Resistant | + + +--------+ + | Streptococcus | Tigecycline | | 0.12 ug/mL: | | infantarius ssp coli | | | Sensitive | + + +--------+ + | Streptococcus | Vancomycin | | 0.5 ug/mL: | | infantarius ssp coli | | | Sensitive | + + +--------+ + + + + + + | Performing | Address | City/State/Zipcode | Phone Number | | Organization | | | | + + + + + | [facility] | [address] | [place] | [phone] | | [facility] | | [address] | | | - LABORATORY | | | | + + + + + Magnesium (11/02/2017 12:19 AM PST) + +-------+ + + + | Component | Value | Ref Range | Performed | Pathologist | | | | | At | Signature | + +-------+ + + + | Magnesium | 2.3 | 1.8 - 2.5 mg/dL | [facility] [...] [address] | [place] | [phone] | | [facility] | | [address] | | | - LABORATORY | | | | + + + + + Basic Metabolic Panel (11/02/2017 12:19 AM PST) + + + + + + | Component | Value | Ref Range | Performed | Pathologist | | | | | At | Signature | + + + + + + | Na | 136 | 136 - 149 | [facility] | [...] + + + + | Cl | 104 | 98 - 109 mmol/L | [facility] | | | | | | [facility] | | | | | | MEDICAL | | | | | | CENTER - | | | | | | LABORATORY | | + + + + + + | CO2 | 23 (L) | 24 - 31 mmol/L | [facility] | | | | | | [facility] | | | | | | MEDICAL | | | | | | CENTER - | | | | | | LABORATORY | | + + + + + + | Anion Gap | 9 | 3 - 16 mmol/L | [facility] | | | | | | [facility] | | | | | | MEDICAL | | | | | | CENTER - | | | | | | LABORATORY | | + + + + + + | Glucose | 184 (H) | 70 - 109 mg/dL | [facility] | | | | | | [facility] | | | | | | MEDICAL | | | | | | CENTER - | | | | | | LABORATORY | | + + + + + + | BUN | 56 (H) | 7 - 18 mg/dL | [facility] | | | | | | [facility] | | | | | | MEDICAL | | | | | | CENTER - | | | | | | LABORATORY | | + + + + + + | Creatinine | 3.76 (H) | 0.60 - 1.30 | [facility] | | | | | mg/dL | [facility] | | | | | | MEDICAL | | | | | | CENTER - | | | | | | LABORATORY | | + + + + + + | eGFR if not | 12 (L)Comment: | >=60 | [facility] | | | | GLOMERULAR FILTRATION | mL/min/1.73m2 | [facility] | | | [facility] | RATE,ESTIMATED | | MEDICAL | | | | mL/min/1.18t9Cboy than | | CENTER - | | [...] + + + + | BUN/Creatin | 14.9 | | [facility] | | | ine [...] [address] | [place] | [phone] | | [facility] | | [address] | | | - LABORATORY | | | | + + + + + POC Glucose (11/02/2017 12:05 AM PST) + +---------+ + + + | Component | Value | Ref Range | Performed | Pathologist | | | | | At | Signature | + +---------+ + + + | Glucose, | 191 (H) | 70 - 109 [...] [facility] | [address] | [place], [place] | [phone] | | [facility] | | [address] | | | - LABORATORY | | | | + + + + + POC Glucose (11/01/2017 10:10 PM PST) + +---------+ + + + | Component | Value | Ref Range | Performed | Pathologist | | | | | At | Signature | + +---------+ + + + | Glucose, | 225 (H) | 70 - 109 mg/dL | [...] + | [facility] | [address] | [place] | [phone] | | [facility] | | [address] | | | - LABORATORY | | | | + + + + + Culture, MRSA (11/01/2017 9:46 PM PST) + + + + + [...] + + + + | Culture | 1+ Coagulase positive | | [facility] | | | | Staphylococcus | | [facility] | | | [...] [address] | [place] | [phone] | | [facility] | | [address] | | | - LABORATORY | | | | + + + + + IMAGING REPORT - EXTERNAL SCAN (11/01/2017 12:00 AM PST) + + + | Narrative | Performed At | + + + | Ordered by an | | | unspecified provider. | | + + + ECG - EXTERNAL SCAN (11/01/2017 12:00 AM PST) + + + | Narrative | Performed At | + + + | Ordered by an | | | unspecified provider. | | + + + LABS - EXTERNAL SCAN (10/25/2017 12:00 AM PST) + + + | Narrative | Performed At | + + + | Ordered by an | | | unspecified provider. | | + + + XR Chest 2 VW (12/17/2007 2:30 PM PDT) + + | Specimen | + + | | + + + + + | Narrative | Performed At | + + + | External films for comparison only - no result from [place]. | [facility] | + + + + +---------+ + + | Performing | Address | City/State/Zipcode | Phone Number | | Organization | | | | + +---------+ + + | [facility] | | | | + +---------+ + + XR Chest 2 VW (02/10/2007 8:55 PM PDT) + + | Specimen | + + | | + + + + + | Narrative | Performed At | + + + | External films for comparison only - no result from [place]. | [facility] | + + + + +---------+ + + | Performing | Address | City/State/Zipcode | Phone Number | | Organization | | | | + +---------+ + + | [facility] | | | | + +---------+ + + XR Chest PA or AP (08/26/2006 6:35 PM PST) + + | Specimen | + + | | + + + + + | Narrative | Performed At | + + + | External films for comparison only - no result from [place]. | [facility] | + + + + +---------+ + + | Performing | Address | City/State/Zipcode | Phone Number | | Organization | | | | + +---------+ + + | [facility] | | | | + +---------+ + + XR Chest PA or AP (08/26/2006 5:30 PM PST) + + | Specimen | + + | | + + + + + | Narrative | Performed At | + + + | External films for comparison only - no result from [place]. | [facility] | + + + + +---------+ + + | Performing | Address | City/State/Zipcode | Phone Number | | Organization | | | | + +---------+ + + | [facility] | | | | + +---------+ + + XR Chest 2 VW (06/24/2006 1:30 PM PDT) + + | Specimen | + + | | + + + + + | Narrative | Performed At | + + + | External films for comparison only - no result from [place]. | [facility] | + + + + +---------+ + + | Performing | Address | City/State/Zipcode | Phone Number | | Organization | | | | + +---------+ + + | [facility] | | | | + +---------+ + + XR Chest 2 VW (06/17/2006 5:35 PM PDT) + + | Specimen | + + | | + + + + + | Narrative | Performed At | + + + | External films for comparison only - no result from [place]. | [facility] | + + + + +---------+ + + | Performing | Address | City/State/Zipcode | Phone Number | | Organization | | | | + +---------+ + + | [facility] | | | | + +---------+ + + XR Chest 2 VW (05/26/2006 4:50 PM PDT) + + | Specimen | + + | | + + + + + | Narrative | Performed At | + + + | External films for comparison only - no result from [place]. | [facility] | + + + + +---------+ + + | Performing | Address | City/State/Zipcode | Phone Number | | Organization | | | | + +---------+ + + | [facility] | | | | + +---------+ + + documented in this encounter Visit Diagnoses + + | Diagnosis | + + | End stage renal disease on dialysis (HCC) End stage renal disease | + + documented in this encounter Administered Medications + +--------+---------+------+------+------+ | Medication Order | MAR | Action | Dose | Rate | Site | | | Action | Date | | | | + +--------+---------+------+------+------+ + +---+ | acetaminophen (TYLENOL) tablet | | | 650 mg 650 mg, Oral, EVERY 4 | | | HOURS PRN, Pain, or fever >= 38.6 | | | C (101.5 F), Starting Mon | | | 11/01/17 at 2144 | | + +---+ | | | + +---+ | albumin 25% IVPB 12.5 g 12.5 | | | g, Intravenous, Administer over | | | 60 Minutes, PRN, PRN | | | hypotension., Starting Tue | | | 11/09/17 at 0744, For BP less than | | | 90. Dialysis use only., | | | Dialysis | | + +---+ | | | + +---+ | albuterol 2.5 mg/3 mL nebulizer | | | solution 5 mg 5 mg, | | | Nebulization, RT EVERY 4 HOURS | | | PRN, Shortness of Breath, | | | Starting 11/02/17 at 2043, RT | | | will administer., | | + +---+ | | | + +---+ + +-------+ +-------+---+---+ | atorvaSTATin (LIPITOR) tablet | Given | 11/08/19 | 20 mg | | | | 20 mg 20 mg, Oral, NIGHTLY, | | 18 9:26 | | | | | First dose on Wed11/01/17 at 2300 | | PM PST | | | | + +-------+ +-------+---+---+ +-------+ +-------+---+---+ | Given | 11/07/19 | 20 mg | | | | | 18 8:53 | | | | | | PM PST | | | | +-------+ +-------+---+---+ | Given | 11/06/19 | 20 mg | | | | | 18 9:29 | | | | | | PM PST | | | | +-------+ +-------+---+---+ + +---+ | | | + +---+ | bisacodyl (DULCOLAX) | | | suppository 10 mg 10 mg, Rectal, | | | DAILY PRN, Constipation, | | | Starting Wed11/01/17 at 2144, If | | | all other bowel medications | | | ineffective x 24 hours or not | | | ordered., | | + +---+ | | | + +---+ + +-------+ + +---+---+ | calcium-vitamin D (OSCAL) 500 | Given | 11/09/19 | 1 tablet | | | | mg-200 units per tablet 1 tablet | | 18 4:22 | | | | | 1 tablet, Oral, 2 TIMES DAILY, | | PM PST | | | | | First dose on Wed11/01/17 at 2300 | | | | | | + +-------+ + +---+---+ +-------+ + +---+---+ | Given | 11/08/19 | 1 tablet | | | | | 18 9:26 | | | | | | PM PST | | | | +-------+ + +---+---+ | Given | 11/08/19 | 1 tablet | | | | | 18 3:16 | | | | | | PM PST | | | | +-------+ + +---+---+ + +---+ | | | + +---+ | dextrose 50% injection 12.5 g | | | 12.5 g, Intravenous, PRN, Low | | | Blood Sugar, Starting 11/01/17 | | | at 1739 | | + +---+ | | | + +---+ | docusate sodium (COLACE) | | | capsule 100 mg 100 mg, Oral, 2 | | | TIMES DAILY PRN, Constipation, | | | Starting 11/01/17 at 2144, 1st | | | line agent for constipation | | | relief., | | + +---+ | | | + +---+ + +-------+ +--------+---+---+ | docusate sodium (COLACE) | Given | 11/09/19 | 100 mg | | | | capsule 100 mg 100 mg, Oral, 2 | | 18 4:22 | | | | | TIMES DAILY, First dose on Dian | | PM PST | | | | | 11/04/17 at 0900, Swallow capsule | | | | | | | whole., | | | | | | + +-------+ +--------+---+---+ +-------+ +--------+---+---+ | Given | 11/07/19 | 100 mg | | | | | 18 8:52 | | | | | | PM PST | | | | +-------+ +--------+---+---+ | Given | 11/07/19 | 100 mg | | | | | 18 8:39 | | | | | | AM PST | | | | +-------+ +--------+---+---+ +---+---+ | | | +---+---+ + +-------+ +---------+---+ + | epoetin karthik (EPOGEN, PROCRIT) | Given | 11/08/19 | 10,000 | | Abdomen- | | 10,000 units/mL injection 10,000 | | 18 9:39 | Units | | LLQ | | Units 10,000 Units, | | AM PST | | | | | Subcutaneous, THREE TIMES WEEKLY | | | | | | | (Once per day on Wed), | | | | | | | First dose on Wed11/03/17 at | | | | | | | 1215, Keep in refrigerator. Do | | | | | | | not shake., | | | | | | + +-------+ +---------+---+ + +-------+ +---------+---+ + | Given | 11/05/19 | 10,000 | | Abdomen- | | | 18 10:15 | Units | | RUQ | | | AM PST | | | | +-------+ +---------+---+ + | Given | 11/03/19 | 10,000 | | Abdomen- | | | 18 1:40 | Units | | LUQ | | | PM PST | | | | +-------+ +---------+---+ + +---+---+ | | | +---+---+ + +---------+ +--------+-------+---+ | ferric gluconate (FERRLECIT) | New Bag | 11/09/19 | 125 mg | 110 | | | 125 mg in sodium chloride 0.9% | | 18 2:49 | | mL/hr | | | 100 mL IVPB 125 mg, Intravenous, | | PM PST | | | | | Administer over 1 Hours, DAILY, | | | | | | | First dose on Wed11/03/17 at | | | | | | | 1215, For 8 doses, Keep in | | | | | | | refrigerator., | | | | | | + +---------+ +--------+-------+---+ +---------+ +--------+-------+---+ | New Bag | 11/08/19 | 125 mg | 110 | | | | 18 3:31 | | mL/hr | | | | PM PST | | | | +---------+ +--------+-------+---+ | New Bag | 11/07/19 | 125 mg | 110 | | | | 18 11:43 | | mL/hr | | | | AM PST | | | | +---------+ +--------+-------+---+ +---+---+ | | | +---+---+ + +-------+ +-------+---+---+ | furosemide (LASIX) tablet 80 mg | Given | 11/09/19 | 80 mg | | | | 80 mg, Oral, 2 TIMES DAILY 0800 | | 18 4:22 | | | | | & 1600, First dose on Sat | | PM PST | | | | | 11/06/17 at 0800 | | | | | | + +-------+ +-------+---+---+ +-------+ +-------+---+---+ | Given | 11/08/19 | 80 mg | | | | | 18 3:14 | | | | | | PM PST | | | | +-------+ +-------+---+---+ | Given | 11/07/19 | 80 mg | | | | | 18 5:12 | | | | | | PM PST | | | | +-------+ +-------+---+---+ +---+---+ | | | +---+---+ + +-------+ +--------+---+---+ | gabapentin (NEURONTIN) capsule | Given | 11/09/19 | 100 mg | | | | 100 mg 100 mg, Oral, DAILY AT | | 18 4:21 | | | | | NOON, First dose on Wed11/02/17 | | PM PST | | | | | at 1200 | | | | | | + +-------+ +--------+---+---+ +-------+ +--------+---+---+ | Given | 11/07/19 | 100 mg | | | | | 18 11:59 | | | | | | AM PST | | | | +-------+ +--------+---+---+ | Given | 11/06/19 | 100 mg | | | | | 18 11:55 | | | | | | AM PST | | | | +-------+ +--------+---+---+ +---+---+ | | | +---+---+ + +-------+ +--------+---+---+ | gabapentin (NEURONTIN) capsule | Given | 11/08/19 | 200 mg | | | | 200 mg 200 mg, Oral, 2 TIMES | | 18 9:26 | | | | | DAILY, First dose on Wed11/01/17 | | PM PST | | | | | at 2300 | | | | | | + +-------+ +--------+---+---+ +-------+ +--------+---+---+ | Given | 11/08/19 | 200 mg | | | | | 18 3:13 | | | | | | PM PST | | | | +-------+ +--------+---+---+ | Given | 11/07/19 | 200 mg | | | | | 18 8:53 | | | | | | PM PST | | | | +-------+ +--------+---+---+ +---+---+ | | | +---+---+ + +-------+ +--------+---+---+ | heparin 1,000 units/mL | Given | 11/09/19 | 4,000 | | | | injection 1,500-6,000 Units | | 18 3:59 | Units | | | | 1,500-6,000 Units, Intracatheter, | | PM PST | | | | | PRN, catheter care, Starting Tue | | | | | | | 11/09/17 at 0744, Instill in | | | | | | | catheter, after each dialysis. | | | | | | | Dispense quantity sufficient to | | | | | | | fill both lumens of catheter., | | | | | | | Dialysis | | | | | | + +-------+ +--------+---+---+ +-------+ +--------+---+---+ | Given | 11/09/19 | 1,000 | | | | | 18 9:25 | Units | | | | | AM PST | | | | +-------+ +--------+---+---+ +---+---+ | | | +---+---+ + +-------+ +-------+---+---+ | heparin 1,000 units/mL | Given | 11/06/19 | 500 | | | | injection 500 Units 500 Units, | | 18 8:20 | Units | | | | Intravenous, WITH EACH DIALYSIS, | | AM PST | | | | | Starting 11/06/17 at 0714, DC | | | | | | | ORDER AFTER DIALYSIS, | | | | | | + +-------+ +-------+---+---+ +---+---+ | | | +---+---+ + +-------+ +--------+---+ + | heparin 1,000 units/mL | Given | 11/08/19 | 5,000 | | Surgical | | injection PRN, Starting Mon | | 18 12:35 | Units | | Site | | 11/08/17 at 1235, Intra-op | | PM PST | | | | + +-------+ +--------+---+ + +---+---+ | | | +---+---+ + +-------+ +-------+---+ + | heparin 100 units/mL flush | Given | 11/08/19 | 5 mLs | | Surgical | | injection PRN, Starting Mon | | 18 1:15 | | | Site | | 11/08/17 at 1315, Intra-op | | PM PST | | | | + +-------+ +-------+---+ + +---+---+ | | | +---+---+ + +---------+ + + +---+ | heparin in half-normal saline | New Bag | 11/09/19 | 500 | 10 mL/hr | | | 50 units/mL infusion 500 | | 18 9:29 | Units/hr | | | | Units/hr (10 mL/hr), at 10 mL/hr, | | AM PST | | | | | Intravenous, TITRATED, Starting | | | | | | | 11/09/17 at 0800, Dialysis | | | | | | + +---------+ + + +---+ +---+---+ | | | +---+---+ + +-------+ + +---+---+ | HYDROcodone-acetaminophen | Given | 11/09/19 | 1 tablet | | | | (NORCO) 5-325 mg per tablet 1 | | 18 4:22 | | | | | tablet 1 tablet, Oral, EVERY 6 | | PM PST | | | | | HOURS PRN, Pain, Starting Mon | | | | | | | 11/08/17 at 1730, If ineffective | | | | | | | use [place] 10/325 if ordered. If | | | | | | | not tolerated, use Percocet then | | | | | | | Oxycodone if ordered., | | | | | | + +-------+ + +---+---+ +-------+ + +---+---+ | Given | 11/09/19 | 1 tablet | | | | | 18 6:03 | | | | | | AM PST | | | | +-------+ + +---+---+ | Given | 11/08/19 | 1 tablet | | | | | 18 9:26 | | | | | | PM PST | | | | +-------+ + +---+---+ +---+---+ | | | +---+---+ + +-------+ +---------+---+ + | insulin lispro (humaLOG | Given | 11/09/19 | 2 Units | | Arm-Left | | KWIKPEN) 100 units/mL injection | | 18 8:21 | | | Upper | | (pen) 0-12 Units 0-12 Units, | | AM PST | | | | | Subcutaneous, 4 TIMES DAILY WITH | | | | | | | MEALS & NIGHTLY, First dose on | | | | | | | Wed11/03/17 at 2330, CORRECTION | | | | | | | SCALE: Blood Glucose (BG) < | | | | | | | 150: None BG | | | | | | | 150-200: DAY: 2 units. NIGHT: | | | | | | | 0 units BG 201-250: DAY: 4 | | | | | | | units. NIGHT: 2 units BG | | [...] | | | | | | | 4996-8209 Use NIGHT DOSE for | | | | | | | doses scheduled: HS, 3AM, | | | | | | | Nighttime 1222-4985, | | | | | | + +-------+ +---------+---+ + +-------+ +---------+---+ + | Given | 11/08/19 | 6 Units | | Abdomen- | | | 18 9:31 | | | RLQ | | | PM PST | | | | +-------+ +---------+---+ + | Given | 11/08/19 | 4 Units | | Arm-Left | | | 18 5:48 | | | Upper | | | PM PST | | | | +-------+ +---------+---+ + + +---+ | | | + +---+ | insulin lispro (humaLOG | | | KWIKPEN) 100 units/mL injection | | | (pen) 0-6 Units 0-6 Units, | | | Subcutaneous, EVERY 2 HOURS PRN, | | | elevated blood glu, Starting Mon | | | 11/01/17 at 1740, CORRECTION | | | SCALE: Blood Glucose (BG) < | | | 150: None BG | | | 150-200: DAY: 1 units. NIGHT: 0 | | | units BG 201-250: DAY: 2 units. | | | NIGHT: 1 units BG 251-300: | | | DAY: 3 units. NIGHT: 2 units | | | BG 301-350: DAY: 4 units. NIGHT: | | | 3 units BG 351-400: DAY: 5 | | | units. NIGHT: 4 units BG > | | | 400 : DAY: 6 units. NIGHT: 5 | | | units | | | AND CALL PROVIDER Use DAY DOSE | | | for doses scheduled: AC, | | | NPO, Daytime 8632-3863 Use NIGHT | | | DOSE for doses scheduled: | | | HS, 3AM, Nighttime 7038-8615, | | + +---+ | | | + +---+ + +-------+ +--------+---+ + | ketamine 50 mg/mL 30 mg, | Given | 11/08/19 | 20 mLs | | Surgical | | bupivacaine (PF) (MARCAINE) 0.25% | | 18 12:15 | | | Site | | 49.75 mL, EPINEPHrine 1 mg/mL | | PM PST | | | | | 0.25 mg Optesia Mixture | | | | | | | Infiltration, [employer], Starting | | | | | | | 11/07/17 at 1911, For 1 dose, | | | | | | | Pre-op | | | | | | + +-------+ +--------+---+ + +---+---+ | | | +---+---+ + +-------+ +--------+---+---+ | labetalol (NORMODYNE) tablet | Given | 11/09/19 | 100 mg | | | | 100 mg 100 mg, Oral, 2 TIMES | | 18 8:47 | | | | | DAILY, First dose on 11/06/17 | | AM PST | | | | | at 1300 | | | | | | + +-------+ +--------+---+---+ +-------+ +--------+---+---+ | Given | 11/08/19 | 100 mg | | | | | 18 9:26 | | | | | | PM PST | | | | +-------+ +--------+---+---+ | Given | 11/08/19 | 100 mg | | | | | 18 9:48 | | | | | | AM PST | | | | +-------+ +--------+---+---+ +---+---+ | | | +---+---+ + +-------+ +--------+---+---+ | levoFLOXacin (LEVAQUIN) tablet | Given | 11/08/19 | 750 mg | | | | 750 mg 750 mg, Oral, EVERY OTHER | | 18 9:45 | | | | | DAY, First dose on [facility] 11/04/17 | | AM PST | | | | | at 1445, Give 2 hours before or 2 | | | | | | | hours after antacids, iron, or | | | | | | | zinc., Indications: | | | | | | | Healthcare-Associated Pneumonia, | | | | | | | UTI - LOWER | | | | | | + +-------+ +--------+---+---+ +-------+ +--------+---+---+ | Given | 11/06/19 | 750 mg | | | | | 18 9:02 | | | | | | AM PST | | | | +-------+ +--------+---+---+ | Given | 11/04/19 | 750 mg | | | | | 18 3:49 | | | | | | PM PST | | | | +-------+ +--------+---+---+ +---+---+ | | | +---+---+ + +-------+ +--------+---+---+ | levothyroxine (SYNTHROID) | Given | 11/09/19 | 75 mcg | | | | tablet 75 mcg 75 mcg, Oral, | | 18 6:03 | | | | | DAILY BEFORE BREAKFAST, First | | AM PST | | | | | dose on Wed11/02/17 at 0730, Give | | | | | | | before breakfast., | | | | | | + +-------+ +--------+---+---+ +-------+ +--------+---+---+ | Given | 11/07/19 | 75 mcg | | | | | 18 6:42 | | | | | | AM PST | | | | +-------+ +--------+---+---+ | Given | 11/06/19 | 75 mcg | | | | | 18 6:31 | | | | | | AM PST | | | | +-------+ +--------+---+---+ + +---+ | | | + +---+ | lidocaine (LIDODERM) 5% patch 1 | | | patch 1 patch, Transdermal, | | | DAILY PRN, Pain, Starting Mon | | | 11/01/17 at 2233, Apply for 12 | | | hours, then remove for 12 hours., | | | Time to remove patch: 10:33 PM | | + +---+ | | | + +---+ + +-------+ +-------+---+---+ | losartan (COZAAR) tablet 25 mg | Given | 11/09/19 | 25 mg | | | | 25 mg, Oral, DAILY, First dose | | 18 8:47 | | | | | on 11/07/17 at 1015 | | AM PST | | | | + +-------+ +-------+---+---+ +-------+ +-------+---+---+ | Given | 11/08/19 | 25 mg | | | | | 18 9:48 | | | | | | AM PST | | | | +-------+ +-------+---+---+ | Given | 11/07/19 | 25 mg | | | | | 18 11:43 | | | | | | AM PST | | | | +-------+ +-------+---+---+ + +---+ | | | + +---+ | mannitol 25% injection 12.5 g | | | 12.5 g, Intravenous, Administer | | | over 30 Minutes, PRN, PRN | | | hypotension, Starting 11/09/17 | | | at 0744, For BP less than 90. | | | Dialysis use only. Do not | | | refrigerate. Watch for | | | precipitation. Use 0.22, 1.2, or | | | 5 micron in-line filter for | | | administration., Dialysis | | + +---+ | | | + +---+ + +-------+ +--------+---+---+ | olopatadine (PATANOL) 0.1% | Given | 11/08/19 | 1 drop | | | | ophthalmic solution 1 drop 1 | | 18 9:28 | | | | | drop, Both Eyes, 2 TIMES DAILY, | | PM PST | | | | | First dose on 11/01/17 at 2300 | | | | | | + +-------+ +--------+---+---+ +-------+ +--------+---+---+ | Given | 11/08/19 | 1 drop | | | | | 18 9:56 | | | | | | AM PST | | | | +-------+ +--------+---+---+ | Given | 11/07/19 | 1 drop | | | | | 18 8:55 | | | | | | PM PST | | | | +-------+ +--------+---+---+ +---+---+ | | | +---+---+ + +-------+ +------+---+---+ | ondansetron (ZOFRAN) injection | Given | 11/05/19 | 4 mg | | | | 4 mg 4 mg, Intravenous, EVERY 6 | | 18 5:45 | | | | | HOURS PRN, Nausea, Vomiting, | | PM PST | | | | | Starting 11/01/17 at 2144, | | | | | | | First line agent, | | | | | | + +-------+ +------+---+---+ +-------+ +------+---+---+ | Given | 11/05/19 | 4 mg | | | | | 18 1:33 | | | | | | AM PST | | | | +-------+ +------+---+---+ | Given | 11/02/19 | 4 mg | | | | | 18 7:35 | | | | | | PM PST | | | | +-------+ +------+---+---+ +---+---+ | | | +---+---+ + +-------+ +-------+---+---+ | pantoprazole (PROTONIX) DR | Given | 11/09/19 | 40 mg | | | | tablet 40 mg 40 mg, Oral, DAILY | | 18 6:04 | | | | | BEFORE BREAKFAST, First dose on | | AM PST | | | | | 11/02/17 at 0730, Do not cut | | | | | | | or crush., | | | | | | + +-------+ +-------+---+---+ +-------+ +-------+---+---+ | Given | 11/07/19 | 40 mg | | | | | 18 6:42 | | | | | | AM PST | | | | +-------+ +-------+---+---+ | Given | 11/06/19 | 40 mg | | | | | 18 6:31 | | | | | | AM PST | | | | +-------+ +-------+---+---+ + +---+ | | | + +---+ | polyethylene glycol (MIRALAX) | | | powder 17 g 17 g, Oral, DAILY | | | PRN, Constipation, Starting Mon | | | 11/01/17 at 2144, If docusate and | | | senna ineffective or not | | | ordered., | | + +---+ | | | + +---+ + +-------+ +------+---+---+ | polyethylene glycol (MIRALAX) | Given | 11/06/19 | 17 g | | | | powder 17 g 17 g, Oral, 2 TIMES | | 18 9:05 | | | | | DAILY, First dose on [facility] 11/04/17 | | AM PST | | | | | at 0900, Mix with 8 oz. water., | | | | | | + +-------+ +------+---+---+ +-------+ +------+---+---+ | Given | 11/05/19 | 17 g | | | | | 18 9:29 | | | | | | PM PST | | | | +-------+ +------+---+---+ | Given | 11/05/19 | 17 g | | | | | 18 8:09 | | | | | | AM PST | | | | +-------+ +------+---+---+ + +---+ | | | + +---+ | senna (SENOKOT) tablet 8.6 mg | | | 8.6 mg, Oral, 2 TIMES DAILY PRN, | | | Constipation, Starting Mon | | | 11/01/17 at 2144, If docusate | | | ineffective or not ordered., | | + +---+ | | | + +---+ | sertraline (ZOLOFT) tablet 100 | | | mg 100 mg, Oral, DAILY, First | | | dose (after last modification) on | | | 11/10/17 at 0900 | | + +---+ | | | + +---+ | sodium chloride 0.9% (NS) | | | infusion 250 mL at 100 mL/hr, | | | Intravenous, EVERY 30 MIN PRN, | | | PRN hypotension., Starting Tue | | | 11/09/17 at 0744, May administer 4 | | | doses/24 hours. For BP less than | | | 90. Dialysis use only, Dialysis | | + +---+ | | | + +---+ documented in this encounter
--- OUTSIDE RECORDS SUMMARY | ~2020-03-21 | XMS | Encounter Summary ---
Demographics + + + | Address | [address] | | | [place] [address] | + + + | Home Phone | | + + + | Preferred Language | Unknown | + + + | Marital Status | Single | + + + | Temple Affiliation | Unknown | + + + | Race | Unknown | + + + | Ethnic Group | Unknown | + + + Author + + + | Author | [facility] | | | and [place] | + + + | Organization | [facility] | | | and [place] | + + + | Address | Unknown | + + + | Phone | Unavailable | + + + Support + + + + + | Name | Relationship | Address | Phone | + + + + + | India Tilley | ECON | [id number] | | | | | [place], [place] | | | | | [address] | | + + + + + [...] Team Providers + +------+ + | Care Chief Controller Name | Role | Phone | + +------+ + PCP | Unavailable | + +------+ + Encounter Details +--------+ + + + + | Date | Type | Department | Care Team | Description | +--------+ + + + + | 12/19/ | [facility] | [facility] | Patricia, | | | 2007 - | Encounter | [facility] | Venkatesh Forte MD [address] | | | | CENTER [address] | [place] | | | 01/10/ | | [place] | [place] [id number] | | | 2007 | | [address] | [phone] | | | | | [phone] | | | +--------+ + + + [...]
--- OUTSIDE RECORDS SUMMARY | ~2020-03-21 | XMS | Encounter Summary ---
Demographics + + + | Address | [address] | | | [place] [address] | + + + | Home Phone | | + + + | Preferred Language | Unknown | + + + | Marital Status | Single | + + + | Tenriism Affiliation | Unknown | + + + | Race | Unknown | + + + | Ethnic Group | Unknown | + + + Author + + + | Author | [facility] | | | and [place] | + + + | Organization | [facility] | | | and [place] | + + + | Address | Unknown | + + + | Phone | Unavailable | + + + Support + + + + + | Name | Relationship | Address | Phone | + + + + + | India Tilley | E[place] | [id number] | | | | | [place], [place] | | | | | [address] | | + + + + + [...] Team Providers + +------+ + | Care Dehydration Unit Operator Name | Role | Phone | [...] + | 01/05/ | Telephone | [facility] | Santos Stephenson | Appointment | | 2018 | | SURGERY [address] | MD Kinga, FACS [address] | | [address] [place], [place] | [facility] | | | | | [address] | [place] [address] | | | | | [phone] | [phone] | | | | | | | [...] 01/05/2018 9:59 AM PDTDebbie with Dialysis in [place] called and stated that on [facility] instructions it has her PO scheduled for 01/17 at 1400 but to follow up with Dr Stephenson on 01/10/18... No appointment has been made for the . Please confirm with Dr Stephenson and ca heaven Aleta back at [phone] and let the front office help know. documented in this encounter Plan of Treatment Not on filedocumented as of this encounter Visit Diagnoses Not on filedocumented in this encounter"
--- OUTSIDE RECORDS SUMMARY | ~2020-03-21 | XMS | Encounter Summary ---
Demographics + + + | Address | [address] | | | [place] [address] | + + + | Home Phone [...] Author | [facility] | | | and [place] | + + + | Organization | [facility] | | | and [place] | + + + | Address | Unknown | + + + | Phone | Unavailable | + + + Support + + + + + | Name | Relationship | Address | Phone | + + + + + | India Tilley | ECON | [phone] | | | | | [place], [place] | | | | | [address] | | + + + + + [...] Team Providers + +------+ + | Care Remote Recruiter Name | Role | Phone | + +------+ + PCP | Unavailable | + +------+ + Encounter Details +--------+ + + + + | Date | Type | Department | Care Team | Description | +--------+ + + + + | 07/23/ | [facility] | [facility] | Patricia, | | | 2006 - | Encounter | MED [facility] | Venkatesh Forte MD [address] | | | | | CENTER [address] | [place] | | | 08/12/ | | [place] | [place] [id number] | | | 2006 | | [address] | [phone] | | | | | [phone] | | | +--------+ + + + [...]
--- OUTSIDE RECORDS SUMMARY | ~2020-03-21 | XMS | Encounter Summary ---
Demographics + + + | Address | [address] | | | [place] [address] | + + + | Home Phone | | + + + | Preferred Language | Unknown | + + + | Marital Status | Single | + + + | Faith Affiliation | Unknown | + + + | Race | Unknown | + + + | Ethnic Group | Unknown | + + + Author + + + | Author | [facility] | | | and [place] | + + + | Organization | [facility] | | | and [place] | + + + | Address | Unknown | + + + | Phone | Unavailable | + + + Support + + + + + | Name | Relationship | Address | Phone | + + + + + | India Tilley | ECON | [phone] | | | | | [place], [place] | | | | | [address] | | + + + + + [...] Providers + +------+ + | Care Senior Stereo Compiler Team Lead Name | Role | Phone | + +------+ + PCP | Unavailable | + +------+ + Encounter Details +--------+ + + + + | Date | Type | Department | Care Team | Description | +--------+ + + + + | 10/04/ | Abstract | [facility] | Darlin Moseley W, | | | 2018 | | NEPHROLOGY [address] | [address] | | | | | [address] | | | | | [place] | [place] [id number] | | | | | [address] | [phone] | | | | | [phone] | | | +--------+ + + + [...] + + | EXTERNAL LAB: [facility] | [facility] | 10/01/2017 | | Results for this | | | e | | | procedure are in the | | | | | | results section. | + +--------+ + + + | EXTERNAL LAB: Felipe [facility] | 10/01/2017 | | Results for this [...] | EXTERNAL LAB: FELIPE, | Routin | 10/01/2017 | | Results [...] | EXTERNAL LAB: CBC | Routin | 10/01/2017 | | Results [...]
--- OUTSIDE RECORDS SUMMARY | ~2020-03-21 | XMS | Encounter Summary ---
Demographics + + + | Address | [address] | | | [place] [address] | + + + | Home Phone | | + + + | Preferred Language | Unknown | + + + | Marital Status | Single | + + + | Christianity Affiliation | Unknown | + + + | Race | Unknown | + + + | Ethnic Group | Unknown | + + + Author + + + | Author | [facility] | | | and [place] | + + + | Organization | [facility] | | | and [place] | + + + | Address | Unknown | + + + | Phone | Unavailable | + + + Support + + + + + | Name | Relationship | Address | Phone | + + + + + | [place] Tilley | ECON | [address] | | | | | [place], [place] | | | | | [address] | | + + + + + [...] Providers + +------+ + | Care Power Technician Name | Role | Phone | + +------+ + PCP | Unavailable | + +------+ + Encounter Details +--------+ + + + + | Date | Type | Department | Care Team | Description | +--------+ + + + + | 11/08/ | Imaging | [facility] | Provider, | | | 2018 | Exam | [facility] | [address] | | | | | IM[address]ING [address] | [address] | | | | | [place] | [place] [address] | | | | | [place] [id number] | | | | | | [phone] | | | +--------+ + + + [...] for comparison only - no result from [place]. | [facility] | + + + + +---------+ + + | Performing | Address | City/State/Zipcode | Phone Number | | Organization | | | | + +---------+ + + | [facility] | | | | + +---------+ + + documented in this encounter Visit Diagnoses Not on filedocumented in this encounter"
--- OUTSIDE RECORDS SUMMARY | ~2020-03-21 | XMS | Encounter Summary ---
Demographics + + + | Address | [address] | | | [place] [address] | + + + | Home Phone | | + + + | Preferred Language | Unknown | + + + | Marital Status | Single | + + + | Mormonism Affiliation | Unknown | + + + | Race | Unknown | + + + | Ethnic Group | Unknown | + + + Author + + + | Author | [facility] | | | and [place] | + + + | Organization | [facility] | | | and [place] | + + + | Address | Unknown | + + + | Phone | Unavailable | + + + Support + + + + + | Name | Relationship | Address | Phone | + + + + + | India Tilley | ECON | [id number] | | | | | [place], [place] | | | | | [address] | | + + + + + [...] Team Providers + +------+ + | Care Buhr Mill Operator Name | Role | Phone [...] | | | | | | | ([facility]) | | | +--------+--------+ + + + + Encounter Details +--------+---------+ + + + | Date | Type | Department | Care Team | Description | +--------+---------+ + + + | 12/04/ | Surgery | [facility] | Scott Brooks, | OR[facility] HIP | | 2019 | | MED CTR OR INTRA OP | MD [address] | W/CANNULATED SCREWS | | | | [address] | [place] | | | | | [place] | [address] | | | | | [address] | | | | | | [phone] | | | +--------+---------+ + + + [...] + + + | Blood Pressure | 177/65 | 12/04/2018 5:20 PM | | | | | PDT | | + + + + + | Pulse | 64 | 12/04/2018 5:20 PM | | | | | PDT | | + + + + + | Temperature | 37.2 C (99 F) | 12/04/2018 5:14 PM | | | | | PDT | | + + + + + | Respiratory Rate | 18 | 12/04/2018 5:14 PM | | | | | PDT | | + + + + + | Oxygen Saturation | 100% | 12/04/2018 5:20 PM | | | | | PDT | | + + + + + | Inhaled Oxygen | - | - | | | Concentration | | | | + + + + + | Weight | 72.6 kg (160 lb) | 12/04/2018 1:41 PM | | | [...] Electronically signed by: Scott Brooks, 12/20/2018 12:05 [facility]ically signed by Scott Brooks MD at 05/2019 12:10 PM PDTdocumented in this encounter Discharge Instructions Instructions Gopi Muñoz, - . Please keep your old HD appt. at [facility] for 12/12/2018. 2. Call our Office if you change your mind and wish to go to [facility] , for further R ehab. 3. Home [...] + + +---------+ + + | [place] [facility] | by Does not apply | | [...] might be d ifferent from the original. [facility] [address] [place] [address] PROGRESS NOTE Pt. Name/Age/: Ara Tilley 73 y.o. 1945 Med. Record Number: [id number] Date of admission: 12/04/2018 NEPHROLOGY HPI - [...] 1kg) Intake/Output Summary (Last 24 hours) at 12/08/185 Last data filed at 12/08/18 1818 Gross per 24 hour Intake 850 ml Output 625 ml Net 225 ml Heart: Regular rate and rhythm with no S3, S4, murmur or rub. Lungs: Prolonged expiratory phase, with findings of Wheeler rales lower 1/4 both lungs. Abdomen: Soft, [...] HD tomorrow and assess for DC soon. [facility] Amol Green MD - 12/08/2018 3:29 PM [...] going to any Rehab. Ctr after DC. [facility] Scott Tadeo MD - 12/07/2018 8:56 AM [...] glucose - again reinforced importance of dominik schreiber for healing Anticoagulation - on lovenox Discharge planning - she doesn't want to do SNF - hasn't been up much with PT though and no t safe for discharge to home without enlisting help Gopi Hassan DO - 12/06/2018 5:33 PM PDT [facility] [address] [place] [address] PROGRESS NOTE Pt. Name/Age/: Ara Tilley 73 y.o. 1945 Med. Record Number: [id number] Date of admission: 12/04/2018 NEPHROLOGY HPI - [...] and diet restriction. 2. We will DC Servando and allow her to use a bedside commode. 3. Continue PT, OT, and add IV Ferrlecit to her regimen. 4. She is evelin that she will not agree to go to an SNF and wishes to go home when felt ap propriate [facility] Scott Tadeo MD - 12/06/2018 8:02 AM [...] and directions X Pharmacy list names: [facility]) X Outside Information Vaccines up to date? [...] did not want to answer medication history factory focus technician's questions; barely verifie d her name. Answered questions with head nods or patients stating that she was not taking a medication. Medication: Prior to Admission Sig: Patient taking differently PEDIATRIC UROLOGIST as: Atorvastatin 20 mg tablet Take 1 [...] idea what this medication was Best possible PEDIATRIC UROLOGIST medication list after pharmacy review: PT REPORTED [...] into the vein Three times a w morongo. Historical Provider, epoetin karthik (EPOGEN, PROCRIT) 10,000 [...] topically Daily. For dry skin Taking Historical ProviderMD insulin glargine (LANTUS SOLOSTAR) 100 units/mL injection (pen) Inject 12 Units under the skin nightly. Historical ProviderMD Insulin Pen Needle 31G X 5 MM MISC by Does not apply route. Historical ProviderMD labetalol (NORMODYNE) 200 mg tablet Take 1 tablet by mouth 2 times daily. Taking 100 table t Edison Keys MD Lancets MISC by Does not apply route. Historical ProviderMD levothyroxine (SYNTHROID, LEVOTHROID) 75 MCG tablet Take 75 mcg by mouth every morning (be fore breakfast). Taking Historical MD Jesica lidocaine-prilocaine (EMLA) cream Apply 1 Application topically Daily. To access 1 hour pr ior to dialysis Taking Historical ProviderMD losartan (COZAAR) 100 MG tablet Take 1 tablet by mouth Daily. Taking Gopi Muñoz DO montelukast (SINGULAIR) 10 mg tablet Take 10 mg by mouth nightly. For asthma or allergies Taking Historical MD Jesica olopatadine (PATANOL) 0.1% ophthalmic solution Place 1-2 drops into both eyes 2 times maite y. Taking Historical MD Jesica pantoprazole (PROTONIX) 40 mg tablet Take 40 mg by mouth every morning (before breakfast). Taking Historical MD Jesica UNABLE TO FIND Med Name: Cadoexomer Iodine 0.9 % gel. Apply a small amount to affected ar ea as directed during dressing changes. Historical MD Jesica Medication review performed and electronically signed by Kerry Jordan, First Grade Teacher 12/05/2018 14:45 Reviewed by Flora Watts, PharmD [...] might be different fro m the original. [facility] HISTORY AND PHYSICAL EXAMINATION Pt. [...] right hip. Today she fell again at [facility] and this time with severe hip pain [...] Placement; Surgeon: Nora Leo MD; Location : [facility] MAIN OR SHUNT PLACEMENT/INSERTION Right 02/04/2018 Procedure: INSERTION SHUNT HEMODIALYSIS W/ PERMACATH; Surgeon: Heather Navarro MD; L ocation: [facility] MAIN OR VEIN SURGERY Right 01/04/2018 Procedure: Right Transposed Basilic Vein to Proximal Radial Artery; Surgeon: Santos Stephenson MD, FACS; Location: [facility] MAIN OR Allergies: Allergies Allergen Reactions Lisinopril [...] in this encounter Consult Notes Gopi Muñoz, - 12/05/2018 5:06 PM PDT [facility] [address] [place] [address] NEPHROLOGY CONSULT Pt. Name/Age/: Ara Tilley 73 y.o. 1945 Med. Record Number: [id number] Date of admission: 12/04/2018 Reason for consultation: [...] attending all her prescribed txs at the [facility], recently. Perfecto maradiaga I was rounding there in October, and the rod machine operator, Aleta Day RN, advised me on mult iple occasions that she had absenteeism or truncated tx, AMA. PAST MEDICAL HISTORY: 1. ESRD 2 diabetic glomerulosclerosis with the patient beginning Inpt HD in 11/03/2017 and then was DC to the [facility] [place], [place]. Unfortunately, she h as had intermittent [...] daily. ETOH: denies. Single; lives independently, in [place]. FAMILY HISTORY: Father: in his 70's of [...] Regular rate and rhythm, with grade 1-2/6 mid-YADI at LSB, no S3, S4, or rub. [...] very interesting patient. Will follow the patient wit h you. [facility] CC: [facility], [place]. Scott Brooks MD [facility], [place] Haris Ahmadi MD - 12/04/2018 2:51 PM PDT [facility] [place] HOSPITALIST CONSULT NOTE Patient: Ara Tilley : 1945: Age: 73 y.o. MedRec: [id number] Admission date: 12/04/2018 Hospital day # : [...] DILAUDID / FENT Relevant Chart Review 10/31/18 Aggie left AMA from HD for over 30 days 08/2018 [facility] hypervolemia hospitalization 06/2018 [facility] PNA LLL hospitalzation 05/2018 [facility] noncompliant w/ HTN medications. Questionable insulin use. [...] Placement; Surgeon: Nora Leo MD; Location : [facility] MAIN OR SHUNT PLACEMENT/INSERTION Right 02/04/2018 Procedure: INSERTION SHUNT HEMODIALYSIS W/ PERMACATH; Surgeon: Heather Navarro MD; L ocation: [facility] MAIN OR VEIN SURGERY Right 01/04/2018 Procedure: Right Transposed Basilic Vein to Proximal Radial Artery; Surgeon: Santos Stephenson MD, FACS; Location: [facility] MAIN OR Patient Active Problem List Diagnosis [...] as need ed for Dry Eyes. Historical Provider, aspirin 325 mg tablet Take 325 mg by mouth Daily. Historical Provider, atorvaSTATin (LIPITOR) 20 mg tablet Take 20 mg by mouth nightly. Historical ProviderMD b complex-vitamin c-folic acid (NEPHRO-MANUEL) tablet Take 1 tablet by mouth Daily. Histor ical ProviderMD calcium-vitamin D (CALCIUM 600-D) 600 mg-400 units per tablet Take 1 tablet by mouth 2 dutch es daily. Historical ProviderMD cholecalciferol (VITAMIN D-3) 2000 units TABS Take 2,000 Units by mouth Daily. Historica l ProviderMD doxercalciferol (HECTOROL) 2 mcg/mL injection Inject 0.5 mcg into the vein Three times a w morongo. Historical Provider, epoetin karthik (EPOGEN, PROCRIT) 10,000 units/mL injection Inject 1 mL under the skin Three times a week. Patient taking differently: Inject 4,000 Units into the vein Three times a we ek. Maylein Vega MD furosemide (LASIX) 80 mg tablet [...] 12 Units under the skin nightly. Historical ProviderMD Insulin Pen Needle 31G X 5 MM MISC by Does not apply route. Historical ProviderMD labetalol (NORMODYNE) 200 mg tablet Take 1 tablet by mouth 2 times daily. 100 tablet Edison Keys MD Lancets MISC by Does not apply route. Historical ProviderMD levothyroxine (SYNTHROID, LEVOTHROID) 75 MCG tablet Take 75 mcg by mouth every morning (be fore breakfast). Historical ProviderMD loratadine (CLARITIN) 10 mg tablet Take 1 tablet by mouth Daily as needed for Allergies. 30 tablet Edison Keys MD losartan (COZAAR) 100 MG tablet Take 1 tablet by mouth Daily. Gopi Muñoz DO losartan (COZAAR) 25 mg tablet Take 1 tablet by mouth Daily. Patient taking differently: Take 100 mg by mouth Daily. 50 tablet Edison Keys MD olopatadine (PATANOL) 0.1% ophthalmic solution Place 1 drop into both eyes 2 times daily. Historical ProviderMD pantoprazole (PROTONIX) 40 mg tablet Take 40 mg by mouth every morning (before breakfast). Historical ProviderMD UNABLE TO FIND Med Name: Cadoexomer Iodine 0.9 % gel. Apply a small amount to affected ar ea as directed during dressing changes. Historical ProviderMD ALLERGIES: SOCIAL HISTORY: FAMILY HISTORY: Allergies Allergen [...] signed by: Haris Segal MD 12/04/2018 15:14 [facility] initial inpatient hospital time greater than 70 minutes with 1/2 spent on face to face ti me for assessment and plan -Medical Decision Maker Patient. Assessment and Plan were discussed with patient -[facility] Documentation I expect this patient will be hospitalized for 2 or more days and expect the post-hospital plan to be home. -I reviewed relevant imaging, EKG and old records. [facility] Notes Priti Burleson RN - 12/04/2018 1:40 PM PDTStates she tripped and fell this morning and l anded onto her right hip . Complains of severe pain with movement and weight bearing. Electr onically signed by Priti Burleson RN at 12/04/2018 1:41 PM Nick Viera MD - 1:40 PM PDT [facility] Ara Tilley Emergency Department Encounter Note [address] [place] [id number] PCP:Francisca Womack PA-C [phone] CHIEF COMPLAINT: Chief [...] TUNNELED CATHETER Right 04/04/[address] Field SHUNT PLACEMENT/INSERTION N/A 11/08/2017 Procedure: Tunneled Hemodialysis Catheter Placement; Surgeon: Nora Leo MD; Location : [facility] MAIN OR SHUNT PLACEMENT/INSERTION Right 02/04/2018 Procedure: INSERTION SHUNT HEMODIALYSIS W/ PERMACATH; Surgeon: Heather Navarro MD; L ocation: [facility] MAIN OR VEIN SURGERY Right 01/04/2018 Procedure: Right Transposed Basilic Vein to Proximal Radial Artery; Surgeon: Santos Stephenson MD, FACS; Location: [facility] MAIN OR CURRENT MEDICATIONS Previous Medications ARTIFICIAL [...] were reviewed along with EMS notes and care home record s if applicable. (See chart for [...] of neck of right femur, initial encounter ([facility]) S72.001A 820.8 Nick Mendoza MD 12/04/18 1456 documented in this encou nter Miscellaneous Notes Plan of Care - Margaret Dempsey, RN CLINICIAN - 12/10/2018 4:03 PM PDTProblem: Discharge Planning Goal: Patient will be discharged in a safe manner Outcome: Improving Spoke with patients RN's, Rodrigue, the day after this patient discharged (Wednesday). This CM w as not the patient's CM yesterday upon discharge. Rodrigue requested that CM fax the [facility] HH or jorge over to [facility]. This CM faxed the order and chart notes to [facility] [phone] and requested that they follow up with patient. Fax came through [place]. Electronically signed b y: Margaret Dempsey, JENNIFER 12/10/2018 16:03 eICU Note - Luis Clark [...] history significant for shceduled dialysis Mon, Wed, Wed. Pt rep orts that she's basically "homeless" [...] her body asking the therapist to leave. COMMERCIAL LEASING AGENT was called in for patient privacy concerns. [...] Therapy Discharge Recommendations are: Recommended discharge disposition: long term facility Post discharge physical therapy recommendation: minimum [...] Recommended Frequency: (1-2 x day (note that gume has lengthy dialysis on Mon, wed, fri .)) Patient Status/Goals: Reflects last filed data and may be from multiple contributors. Gait Patient requires additional time and encouragement to mobilize. Demonstrates improved func tional use of front-wheeled walker but decreased weightbearing on right lower extremity with stance phase of gait Level of Towson: stand by assist Assistive Device: 2 wheeled walker (FWW) Distance (feet): 15 Gait Pattern Analysis: 3-point gait Safety Issues: sequencing ability decreased, step length decreased, weight-shifting ability decreased Impairments: decreased flexibility, pain, impaired balance Transfers Patient needing additional time and encouragement to mobilize Bed-Chair, Level of Towson: stand by assist Chair-Bed, Level of Towson: stand by assist Hlo-Wrbiz-Uak, Assistive Device: 2 wheeled walker (FWW) Sit-Stand, Level of Towson: minimal assist (75% patient effort), set up required, ignacio bal cues required, tactile cues required Stand-Sit, Level of Towson: minimal assist (75% patient effort), set up required, ignacio bal cues required, tactile cues required Yvq-Aoquo-Kji, Assistive Device: 2 wheeled walker (FWW) Maintain Weight Bearing Status: able to maintain weight bearing status Safety Issues: sequencing ability decreased, step length decreased, weight-shifting ability decreased Impairments: decreased flexibility, pain, impaired balance Bed Mobility pt reporting continued pain in the right lower extremity it is not limiting mobility today Assistive Device: HOB elevated, bed rails Scoot/Bridge, Level of Towson: stand by assist Supine to Sit, Level of Towson: stand by assist Sit to Supine, Level of Towson: not tested Safety Issues: decreased use of [...] STG Review Date 12/09/18 at 12/06/2018 1115 Qnvdti-Wmp-Eeepjr Goal Most Recent Value STG Status new at 12/06/2018 1115 STG Towson Level modified independent at 12/06/2018 1115 STG Assistive Device none at 12/06/2018 1115 Jxt-Ljbvd-Cpz Goal Most Recent Value STG Status new at 12/06/2018 1115 STG Towson Level modified independent at 12/06/2018 1115 STG Assistive Device 2 wheeled walker (FWW) at 12/06/2018 1115 Gait Goal Most Recent Value STG Status new at 12/06/2018 1115 STG Towson Level modified independent at 12/06/2018 1115 STG [...] Fluid restriction continued. 1 person SBA. Fernando zuniga active. Calls for assistance, bed alarm on, call-light within reach and frequent rou nding done. lan of Care - Roseanne Pate RRT - 12/09/2018 5:11 AM PDTProblem: Patient Care [...] No falls/inju ry. lan of Care - Mayber ry, Claude Langford, PT - 12/08/2018 10:38 AM PDT Problem: [...] weakness follow ing 2 falls at home. Ben was brought to ER with complaint of R hip pain and found to have rig ht femur fx. Pt underwent right hip cannulated screw fixation for femoral neck fracture. Pt is now WBAT RLE. Pt medical history significant for shceduled dialysis Mon, Wed, Fri. Pt rep orts that she's basically "homeless" and goes back and forth between her sister's homes to [place]. Pt states she usually sleeps on the [...] Therapy Discharge Recommendations are: Recommended discharge disposition: long term facility, intermediate accountant acute care facility (vs (pt needs to [...] (note that pateint has lengthy dialysis on Wed, wed, wed .)) Patient Status/Goals: Reflects last filed data and may be from multiple contributors. Gait Cues required to not "over step "the front wheeled walker. Patient reminded on multiple oc casions to keep the walker in front of her and not allow her upper extremities and trunk to lean over the front of the walker. Level of Towson: minimal assist (75% patient effort), set up [...] go functional dista nces. Bed-Chair, Level of Towson: minimal assist (75% patient effort), verbal cues required , set up required, tactile cues required Chair-Bed, Level of Towson: minimal assist (75% patient effort), set up required, ignacio bal cues required, tactile cues required Elv-Ikkau-Eqf, Assistive Device: 2 wheeled walker (FWW) Sit-Stand, Level of Towson: minimal assist (75% patient effort), set up required, ignacio bal cues required, tactile cues required Stand-Sit, Level of Towson: minimal assist (75% patient effort), set up required, ignacio bal cues required, tactile cues required Cwb-Wlymp-Als, Assistive Device: 2 wheeled walker (FWW) Maintain [...] HOB elevated, bed rails Scoot/Bridge, Level of Towson: stand by assist Supine to Sit, Level of Towson: stand by assist Sit to Supine, Level of Towson: not tested Safety Issues: decreased use of [...] STG Review Date 12/09/18 at 12/06/2018 1115 Xrvwol-Ojc-Tsdpry Goal Most Recent Value STG Status new at 12/06/2018 1115 STG Towson Level modified independent at 12/06/2018 1115 STG Assistive Device none at 12/06/2018 1115 Lds-Yzjth-Fje Goal Most Recent Value STG Status new at 12/06/2018 1115 STG Towson Level modified independent at 12/06/2018 1115 STG Assistive Device 2 wheeled walker (FWW) at 12/06/2018 1115 Gait Goal Most Recent Value STG Status new at 12/06/2018 1115 STG Towson Level modified independent at 12/06/2018 1115 STG Assistive Device 2 wheeled walker (FWW) at 12/06/2018 1115 STG Distance (feet) 150 feet at 12/06/2018 1115 Electronically signed by: Claude Santos, PT, 12/08/2018 17:33 lan of Care - Daina Olsen OT - 12/08/2018 8:38 AM PDTFormatting of this note might be different fro m the original. Problem: Patient Care Overview (Adult) [...] Therapy Discharge Recommendations are: Recommended discharge disposition: long term facility (TBD) Post discharge occupational therapy recommendation: [...] safety at home. LB Dressing, Level of Towson: stand by assist, verbal cues required Assistive [...] HOB elevated, bed rails Scoot/Bridge, Level of Towson: stand by assist Supine to Sit, Level of Towson: stand by assist Sit to Supine, Level of Towson: not tested Safety Issues: decreased use of [...] STG Status new at 12/08/2018 0838 STG Towson Level modified independent at 12/08/2018 0838 Tub/Shower Transfer Goal Most Recent Value Tub/Shower Type tub/shower combo at 12/08/2018 0838 STG Status new at 12/08/2018 0838 STG Towson Level modified independent at 12/08/2018 0838 Electronically signed by: Daina Dumont OT, 12/08/2018 9:24 lan of Care - Elie Castillo V, SOLUTIONS ARCHITECT CONSULTANT - 12/07/2018 9:01 PM PDTProblem: Patient Care [...] inue to monitor lan of Care - Anna Marie epperson, Mayelin Arenas RN - 12/07/2018 4:01 PM PDTProblem: Patient [...] tape on sites . Reported to Mayelin, beau RN, that dialysis treatment was complete. lan of Melanie - Daina Dumont OT - 10:27 AM PDTProblem: Patient Care [...] Daina Dumont OT, 12/07/2018 10:27 lan of Wisam Cason PTA - 12/07/2018 9:52 AM PDTProblem: Patient Care [...] alysis during AM session, pt has dialysis Wed/Wed/Wed, usually AM, prefer PM tx Wed/Wed/Wed d/t dialysis is possible, pt on pickup [...] IV dilaudid and 10 mg oxycodone. Up th 1 person assist and FWW. Reports chronic [...] neck of righ t femur, initial encounter ([facility]) [S72.001A]. Bell Person visit was part of routine rounding. Spiritual Evaluation: The patient was resting in a bed and was not receptive to spiritual care at this time. She was calm, but expressed some frustration. She did not desire to talk about her concerns. She has spiritual practices and will contact someone from the [facility] if neede d. She has a sister who is supportive, but she did not desire to talk about her support sys tem. Spiritual Interventions: The cabinet finisher attended, offered care, and explored meaning. Spiritual [...] (note that pateint has lengthy dialysis on Wed, wed, wed .)) Patient Status/Goals: Reflects last filed data and may be from multiple contributors. Gait Min A for mild imbalance due to pain. Level of Towson: minimal assist (75% patient effort), set up [...] imbalance on initial stand. Bed-Chair, Level of Towson: minimal assist (75% patient effort), verbal cues required , set up required, tactile cues required Chair-Bed, Level of Towson: not tested Ojp-Jxpuq-Bxe, Assistive Device: 2 wheeled walker (FWW) Sit-Stand, Level of Towson: minimal assist (75% patient effort), set up required, ignacio bal cues required, tactile cues required Stand-Sit, Level of Towson: minimal assist (75% patient effort), set up required, ignacio bal cues required, tactile cues required Fvh-Qzntk-Ayj, Assistive Device: 2 wheeled walker (FWW) Maintain Weight Bearing Status: able to maintain weight bearing status Safety Issues: sequencing ability decreased, step length decreased, weight-shifting ability decreased Impairments: decreased flexibility, pain, impaired balance Bed Mobility No physical assist needed. extra time and effort due to pain. able to sit EOB using arms for support. Assistive Device: HOB elevated, bed rails Scoot/Bridge, Level of Towson: contact guard assist Supine to Sit, Level of Towson: contact guard assist Sit to Supine, Level of Towson: not tested Safety Issues: decreased use of legs for bridging/pushing Impairments: decreased flexibility, pain, strength decreased ROM L LE ROM: WFL R LE ROM: limited by pain Strength L LE Strength: Grossly 4-/5 R LE Strength: limited by pain PT Goal Review Date Most Recent Value STG Review Date 12/09/18 at 12/06/2018 1115 Axyyfd-Fic-Twfovh Goal Most Recent Value STG Status new at 12/06/2018 1115 STG Towson Level modified independent at 12/06/2018 1115 STG Assistive Device none at 12/06/2018 1115 Akd-Dvrgi-Xfm Goal Most Recent Value STG Status new at 12/06/2018 1115 STG Towson Level modified independent at 12/06/2018 1115 STG Assistive Device 2 wheeled walker (FWW) at 12/06/2018 1115 Gait Goal Most Recent Value STG Status new at 12/06/2018 1115 STG Towson Level modified independent at 12/06/2018 1115 STG Assistive Device 2 wheeled walker (FWW) at 12/06/2018 1115 STG Distance (feet) 150 feet at 12/06/2018 1115 Electronically signed by: Fred Galvan, PT, 12/06/2018 11:26 lan of Care - Christy aburtomauro Liam F, SOLUTIONS ARCHITECT CONSULTANT - 12/06/2018 9:36 AM PDT Problem: Patient [...] 3 12-14 4 15+ 5 lan of Care - Peter lazcano, Elisa Mast RN - 12/06/2018 4:58 AM PDTProblem: Patient [...] 1L. Does not use O2 at baseline. Manager [employer] eugenie N/T to BUE/BLE. D/P moderate. M/S 4/5. Pulses 2+. Dilaudid given for pain. Dressing to R LE CDI. Not up yet. Will have PT eval today. Dialysis done yesterday. Dressing over fistula CDI. Al draining clear yellow urine. Passing flatus. Bowel tones active. Last BM 12/05. Appeared to sleep well between. lan [facility] Peter lazcano, Elisa Mast RN - 12/06/2018 12:10 AM PDTPatient called [...] initially; RN running dialysis to address with .Electr onically signed by Francisca Castro RN at 12/05/2018 11:11 AM PDTPlan [facility] - 12/05/2018 10:38 AM PDTProblem: Discharge Planning Goal: Patient will be discharged in a safe manner Outcome: Improving Visited with this patient from [place] who fell 2x in one week and fractured her femur. Patient was transferred here for orthopedic intervention. Patient had surgery and had screw fixation of the femur. Patient is a dialysis patient and was getting ready for dialysis wh en this employment case manager went to see her. Patient said that she is normally independent and linda s not use a mobility aid. She said that when discharged she would return to her sister's [facility] in [place] where she resides with her sister who is a nurse and with her sister's son. Case management will need to follow up with this patient. Physical therapy had not been in to work with her yet.Electronically signed by: AMILCAR Wray 12/05/2018 10:38 lan of Care - Elisa Matos RN - 12/05/2018 4:38 AM PDTProblem: Patient [...] +--------+ + + + | FL ALBERTINA STATAlejandro NO | Routin | 12/04/2018 | | [...] | | | 12/04/ | | | 2019 | | | 1:38 | | | [...] | | | ON?03/ | | | / | | | 9 | | | 13:34? | | | WILLIA | | | MS, | | | ARA | | | | | | R?MRN: | | | | | | [id number] | | | [id number] | | | riteri | | | [...] | | | St. | | | [place] | | | y | | | [...] | | | [facility] | | | [place] | | | [facility] 0 | | | [facility] | [facility] | | | [place] | | | y | | | [...] | | | St. | | | [place] | | | y H. | | [...] | | e of | | | [place] | | | | | | mckeon [...] | | | St. | | | [place] | | | y H. | | [...] the | | | | | | recruiting coordinator | | | al | | | [...] | | | St. | | | [place] | | | y H. | | [...] | | e of | | | [place] | | | | | | mckeon [...] | | | [facility] | | | [place] | | | [place] | | | ID | | | [...] | | | [facility] | | | [place] | | | [place] | | | ID | | | [...] | | | [facility] | | | [place] | | | [place] | | | ID | | | [...] | | | [facility] | | | [place] | | | [place] | | | ID | | | [...] | | | [facility] | | | [place] | | | [place] | | | ID | | | [...] | | | [facility] | | | [facility] | | | | | | HEALTH [...] | | | [id number] | | | [id number] | | | [id number] | | | [...] + | [facility] | [address] | [place] | [phone] | | [facility] | | [address] | | | - LABORATORY | | [...] + | [facility] | [address] | [place] | [phone] | | [facility] | | [address] | | | - LABORATORY | | [...] ST. | [address] | [place], [place] | [phone] | | [facility] | | [address] | | | - LABORATORY | | [...] [address] | [place] | [phone] | | [facility] | | [address] | | | - LABORATORY | | [...] + | [facility] | [address] | [place] | [phone] | | [facility] | | [address] | | | - LABORATORY | | [...] ST. | [address] | [place] | [phone] | | [facility] | | [address] | | | - LABORATORY | | [...] | | [facility] | | | [facility] | | [...] [address] | [place] | [phone] | | [facility] | | [address] | | | - LABORATORY | | [...] | [facility] | [address] | [place] | [phone] | | [facility] | | [address] | | | - LABORATORY | | [...] [address] | [place] | [phone] | | [facility] | | [address] | | | - LABORATORY | | [...] [address] | [place] | [phone] | | [facility] | | [address] | | | - LABORATORY | | [address] | [place] | [phone] | | [facility] | | [address] | | | - LABORATORY | | [...] [address] | [place] | [phone] | | [facility] | | [address] | | | - LABORATORY | | | | + + + + + Parathyroid Hormone, Intact (12/06/2018 5:49 AM PDT) + +---------+ + + + | Component | Value | Ref Range | Performed | Pathologist | | | | | At | Signature | + +---------+ + + + | PTH Intact | 205 (H) | 19 - 88 pg/mL | [facility] | | | | [...] | + + + + + | [facility] | [address] | [place], [place] | [phone] | | [facility] | | [address] | | | - LABORATORY | | [...] | | A1c | | | [facility] | | | | | | MEDICAL | | | | | | CENTER - | | | | | | LABORATORY | | + +---------+ + + + | Estimated | 143 | mg/dL | [facility] | | | Average | | | [facility] | | | Glucose | | | [...] + | [facility] | [address] | [place] | [phone] | | [facility] | | [address] | | | - LABORATORY | | [...] | | Cells | | | [facility] | | [...] | | | | | g/dL | . [facility] | | | | | | [...] ST. | [address] | [place], [place] | [phone] | | [facility] | | [address] | | | - LABORATORY | | [...] [address] | [place] | [phone] | | [facility] | | [address] | | | - LABORATORY | | [...] + | [facility] | [address] | [place] | [phone] | | [facility] | | [address] | | | - LABORATORY | | [...] ST. | [address] | [place], [place] | [phone] | | [facility] | | [address] | | | - LABORATORY | | [...] [address] | [place] | [phone] | | [facility] | | [address] | | | - LABORATORY | | [...] (L) | 15.0 - 50.0 % | [facility] | | | SATURATION | | | [facility] | | [...] [address] | [place] | [phone] | | [facility] | | [address] | | | - LABORATORY | | | | + + + + + Magnesium (12/05/2018 6:05 AM PDT) + +-------+ + + + | Component | Value | Ref Range | Performed | Pathologist | | | | | At | Signature | + +-------+ + + + | Magnesium | 2.1 | 1.6 - 2.6 mg/dL | [facility] | | | | [...] [address] | [place] | [phone] | | [facility] | | [address] | | | - LABORATORY | | [...] [address] | [place] | [phone] | | [facility] | | [address] | | | - LABORATORY | | [...] mL/min/1.73m2 | [facility] | | | [place] | | | MEDICAL | | | [address] | [place] | [phone] | | [facility] | | [address] | | | - LABORATORY | | [...] [address] | [place] | [phone] | | [facility] | | [address] | | | - LABORATORY | | [...] [address] | [place] | [phone] | | [facility] | | [address] | | | - LABORATORY | | [...] | [facility] | [address] | [place] | [phone] | | [facility] | | [address] | | | - LABORATORY | | [...] + | [facility] | [address] | [place], [place] | [phone] | | [facility] | | [address] | | | - LABORATORY | | [...] + | Anjum Jordan Results In - 12/04/2018 7:04 PM PDT [...] | | + +---------+ + + [place] C-Arm Stats No Charge (12/04/2018 4:58 PM PDT) [...] [address] | [place] | [phone] | | [facility] | | [address] | | | - LABORATORY | | [...] | | Anticoagulation Range: | | [facility] | | | | 2.0 - 3.0High [...] [address] | [place] | [phone] | | [facility] | | [address] | | | - LABORATORY | | [...] + | [facility] | [address] | [place] | [phone] | | [facility] | | [address] | | | - LABORATORY | | [...] mL/min/1.73m2 | [facility] | | | [place] | | | MEDICAL | | | [...] [address] | [place] | [phone] | | [facility] | | [address] | | | - LABORATORY | | [...] | Preliminary studIes have | | [facility] | | | s | indicated the [...] | | | | | WBC's | [facility] | | | | | | MEDICAL | | | | | | CENTER - | | | | | | LABORATORY | | + + + + + + | Absolute | 0.00 | 0.00 - 0.01 | [facility] | | | nRBC | | K/uL | . [facility] | | | | | | [address] | [place] | [phone] | | [facility] | | [address] | | | - LABORATORY | | [...] scheduled: AC, NPO, Daytime | | | 3604-7398 Use NIGHT DOSE for | | | doses scheduled: HS, 3AM, | | | Nighttime 5289-3618, | | + +---+ | | | [...] PRN, Decreased | | | Responsiveness, Starting [place] | | | 12/04/18 at 2011 | | + +---+ | | | + +---+ | olopatadine (PATANOL) 0.1% | | | ophthalmic solution 1 drop 1 | | | drop, Both Eyes, 2 TIMES DAILY, | | | First dose (after last | | | modification) on [place] 12/04/18 at | | | 2100 | [...] | +---+---+ + +-------+ +--------+---+ + | ropivacaine (NAROPIN) 2 mg/mL | Given | 12/05/19 | 30 mLs | | Surgical | | (0.2%) injection PRN, Starting | | 19 4:41 | | | Site | | 12/04/18 at 1641, Intra-op | | PM PDT | | | | + +-------+ +--------+---+ [...]
--- OUTSIDE RECORDS SUMMARY | ~2020-03-21 | XMS | Encounter Summary ---
Demographics + + + | Address | [address] | | | [place] [address] | + + + | Home Phone | | + + + | Preferred Language | Unknown | + + + | Marital Status | Single | + + + | Sikhism Affiliation | Unknown | + + + | Race | Unknown | + + + | Ethnic Group | Unknown | + + + Author + + + | Author | Merged With [facility] | | | and Kamaljitana | + + + | Organization | [facility]erged With [facility] | | | and [...] [place], [place] | | | | | [address] | | + + + + + [...] Team Providers + +------+ + | Care Director Toxicology Name | Role | Phone | + [...] | | | | | s, | [address] | [address] | | | | | unspecified | FLOOR | [address] | | | | | site, | [place], [place] | [place], [place] | | | | | unspecified | [address] | [address] | | | | | type (HCC) | Phone: | Phone: | | | | | | [phone] | [phone] | | | | | | Fax: | Fax: | | | | | | [phone] | [phone] | + + + + + + [...] + + | 03/24/ | Hospital | [facility] | Erlinda Simon, | Osteomyelitis, | | 2019 - | Encounter | [facility] | [address] | unspecified site, | | | | NEPHROLOGY [address] [place] | unspecified type | | 03/31/ | | [address] [place] | [address] | (HCC) (Primary Dx); | | 2019 | | [address] | | Discitis of thoracic | | | | [phone] | Katey Hill MD | region; Other | | | | | [address] | secondary | | | | | [place] [address] | osteoarthritis of | | | | | [phone] | multiple sites; ESRD | | | | | | (end stage renal | | | | | Michelle Lopez, | disease) on dialysis | | | | | DO [address] | (HCC); Essential | | | | | [address] [place], | hypertension; ESRD | | | | | [place] [address] | (end stage renal | | | | | [phone] | disease) (HCC); Type | | | | | | 2 diabetes mellitus | | | | | | with stage 4 | | | | | | chronic kidney | | | | | | disease, with | | | | | | long-term current | | | | | | use of insulin (HCC) | +--------+ + + + + [...] Up Appointments: ELI BALL [address] [facility] [address] [facility] [address] [facility] [phone] [facility] [address] [facility] [phone] Discharge Disposition: Home with Home Health Consultants This Admission: ID, Nephrology Hospital Course: 73-year-old female with history of ESRD on hemodialysis, hypertension, type 2 diabetes, hyp othyroidism, chronic anemia, hyperlipidemia with a history of stroke transferred [facility] for evaluation of T11-T12 lesion noted on [...] initially had planned to go to SNF ([facility] in [place], [place] - of which has accepted her [...] dialysis days after dialysis Osteomyelitis/Discitis of T11, [id number] -MRI spine 03/23/19: "mild paravertebral soft tissue [...] dialysis patient - has OP clinic in [place] already Macrocytic anemia likely secondary to-likely anemia [...] 100 mL IVPB 500 mg IV on M/W/ after dialysis, through 05/03 Indications: Infection of [...] Value Units Date/Time Culture, Aerobic + Anaerobic [[id number]] Collected: 03/24/191513 Order Status: Completed Lab Status: Final result Updated: 03/29/19717 Specimen: Body Fluid from Vertebrae, Thoracic FINAL REPORT -- No Growth No anaerobes isolated Gram Stain Few Neutrophils No squamous epithelial cells seen No organisms seen Comment: Performed by [facility] [address] [place] [address] Gram Stain [[id number]] Collected: 03/24/191513 Order Status: Canceled Lab Status: No result Updated: 03/24/191514 Specimen: Body Fluid from Vertebrae, Thoracic Culture, AFB Smear [[id number]] Collected: 03/24/191513 Order Status: Completed Lab Status: Preliminary result Updated: 03/25/19 1054 Specimen: Body Fluid from Vertebrae, Thoracic AFB Smear Result No Acid Fast Bacilli Seen Comment: Performed by [facility] [address] [place] [address] Culture, Fungus, Smear [[id number]] Collected: 03/24/191513 Order Status: Completed Lab Status: Preliminary result Updated: 03/25/19 1039 Specimen: Body Fluid from Vertebrae, Thoracic CALCOFLUOR No fungal elements seen Comment: Performed by [facility] [address] [place] [address] Culture, Blood [[id number]] Collected: 03/23/19 2333 Order Status: Completed Lab Status: Final result Updated: 03/28/19 2352 Specimen: Blood Culture No growth after 5 days incubation. Culture, Blood [[id number]] Collected: 03/23/19 2255 Order Status: Completed Lab [...] this chart may have been created with AppRedeem voice recognition software. Occasi onal wrong-word or [...] Daily. | | | | | | (NEPHRO-RENATA) tablet | | | | | | [...] + + +---------+ + + | [place] LI | by Does not apply | | [...] | | | | | | | ([facility]), Right hip | | | | [...] 03/31/2019 5:42 PM PDTPatient left with family, [facility] supplies and i nstructions received before discharge and RX's filled at outpt pharmacy. VSS, ambulating wit h SBA, A&O x4, accepting of discharge. Dialysis completed this AM. Pain controlled with q4 o xy, LD 1400. Home health will f/u tomorrow. AVS reviewed and sent with patient, verbalized u nderstanding. Merry Hess, CABLE HOOKER - 03/31/2019 11:05 AM PDTSOCIAL WORK PLAN: Home with [facility] NEXT STEPS: 1. Pt to follow up with [facility] 2. [facility] to follow up with pt at dc INTERVENTION: SW spoke with [facility], pt has a $2.50 out of pocket cost weekly, pt is agreeable to pay for this. Therefore pt will dc today with [facility]. ROBIN provided [facility] with hard script for IV abx. ROBIN faxed over HH order to [facility], ROBIN faxed over IV vanco script to [facility]. [facility] notified of pt's dc home. notified. Candie to meet with pt later this afternoon for teach. ROBIN provided pt with 3 gas cards to assist with transportation. No further dc needs identified. SW received call from [facility] HD clinic that they cannot provide IV Vanco as Vanco h as not been consigned by Property Management Supervisor that has privileges in [place]. IV Vanco will now be done b y Candie, [address] [place] faxed over hard script to [facility]. They will have both IV Abx ready and will teach pt shortly. No further dc needs identified. CONTACTS: Yina La: sister India Tilley: sister [place] Transportation: [place] Medicaid Transportation fax: [phone] [facility]: [phone] fax: [phone] [facility] [phone] [facility]: [phone] [facility]: [phone] [facility] FAX: [phone] after, Michelle Taylor DO - 03/31/2019 10:12 AM PDT Patient: Estefani Tilley Date of : 1945 Admit Date: 03/24/2019 Date of Service: 03/31/2019 PCP: Francisca Womack PA-C Hospital Day: Hospital Day: 8 Hospital Course: 73-year-old female with history of ESRD on hemodialysis, hypertension, type 2 diabetes, hyp othyroidism, chronic anemia, hyperlipidemia with a history of stroke transferred from [facility] for evaluation of T11-T12 lesion noted on [...] initially had planned to go to SNF ([facility] in [place], [place] - of which has accepted her [...] dialysis patient - has OP clinic in [place] already Macrocytic anemia likely secondary to-likely anemia [...] hoping to arrange home IV antibiotics through [facility]. Awaiting to see if insurance will cover [...] oz) I/O last 3 completed shifts: In: 1809 [P.O.:1810] Out: 0 Wt Readings from Last [...] - 99 mg/dL Final Comment: Performed by [facility] [address] [place] [address] 03/30/2019 21:14 200 (H) 65 - 99 mg/dL Final Comment: Performed by [facility] [address] [place] [address] 03/30/2019 17:46 111 (H) 65 - 99 mg/dL Final Comment: Performed by [facility] [address] [place] [address] 12/09/2018 18:05 113 (H) 70 - 109 mg/dL Final 12/09/2018 11:54 175 (H) 70 - 109 mg/dL Final 12/09/2018 06:09 117 (H) 70 - 109 mg/dL Final All pertinent labs and imaging have been reviewed. Please refer to the Assessment and Plan for details on management. I spent 30 minutes with the patient and on the patient's unit, in discussion with SW, with over 50% spent in counseling and/or coordination of care. Please refer to the Assessment an d Plan for details. Electronically signed by: Michelle Lopez DO 03/31/2019 10:13 Portions of this chart may have been created with AppRedeem voice recognition software. Occasi onal wrong-word or sound-alike substitutions may have occurred due to the inherent mckeon itations of voice recognition software. Please read the chart carefully and recognize, using context, where these substitutions have occurred rgJesus mcdonald MD - 03/31/2019 8:26 AM PDT . Infectious Diseases Progress Note Pt. Name/Age/: Estefani Tilley 73 y.o. 1945 Med. Record Number: [id number] Date of admission: 03/24/2019 Patient admitted with [...] Electronically signed by: Jesus Whitney, 03/31/2019 8:26 [facility] Robb Phillips, PharmD - 03/31/2019 7:25 AM [...] P&T-approved Vancomycin Protocol Electronically signed by: Robb Wheeler, PharmD 03/31/2019 7:25 su, Randy Nunez MD - 03/30/2019 9:45 PM PDT [facility] INPATIENT ROUNDING NOTE Date of Service: 03/30/2019 Rounding Physician: Randy Corrigan MD Patient Name: Estefani Tilley : 1945 Medical Record: [id number] Hospital Summary: Estefani Tilley is a 73 y.o. female with a PMHx of ESRD, HTN, Dm type 2, hypothyroidism, HLd, CVA who is under the care of Dr Muñoz at [facility] who dialyzes MWF admitted with [...] signed by: Trace Corrigan MD, 03/30/2019, 21:45 an Saldivar, CABLE HOOKER - 03/30/2019 2:34 PM PDT SOCIAL WORK D/C PLAN:DC home with [facility] providing IV-ABX and [facility] providing picc care and lab draws vs [facility] NEXT STEPS: -SW will need to follow up with SHAYE regarding providing IV-ABX to pt. -SW will need to follow up with [facility] regarding providing picc care and lab draws. -SW will need to follow up with [facility] regarding having pt receive vanco do se while at dialysis center if pt is to go home with IV-ABX -SW will need to follow up with [facility] if pt is unable to go home with IV-ABX rega ridng pt's DC -SW will need to fax SNF orders, scripts and PASRR to [facility] if pt is unable to go home -SW will need to provide gas cards to pt's family for transportation home. INTERVENTION:SW spoke with pt regarding acceptance to [facility]. Pt is now wanting to go home with IV-ABX. SW spoke with [facility]. They go out to [place], [place] and have openings for nursing care. Referral faxed to [facility]. Pt is amenable to using [facility] for IV-ABX. SW spoke with CANDIE martinez who will run pt's be nefits to see if she can DC home with IV-ABX. Pt states that SHAYEAM can provide teach to her son to help administer IV-ABX. SW left message for [facility] to see if they can [facility] Wednesday and Wednesday if pt is able to go home. Pt states that she does dialysis on Wednesday, Wednesday and Wednesday from 12:00-4:00. SW received phone call from [facility]. They have accepted pt for admission if [...] if pt is going to go to [facility]. ASSESSMENT/CHART REVIEW:73 yr old femalewith a history of ESRD on hemodialysis, hypertens ion, type 2 diabetes, hypothyroidism,chronic anemia,hyperlipidemia, hx of stroke [facility] noted on MRI concerning fo r osteomyelitis. ROBIN met with pt's sister, Yina, and her cousin, Keri, who were waiting in pt's room while s he was in dialysis. ROBIN will need to follow up with pt re: d/c planning. Pt's sister and cousin related that pt mostly lives at Yina's house outside [place], [place], but does not like to be tied down because she enjoys attending [place] festivals and many events. She does at [facility] dialysis weekly. Pt has a vehicle and is very independent. D/C TRANSPORT:Pt can be transported home or to [facility] via family in a private car. They will need gas cards to help pay for transportation. BARRIERS TO D/C:none CONTACTS: Yina La: sister India Tilley: sister [place] Transportation: [place] Transportation fax: [phone] [facility]: [phone] fax: [phone] [facility] [phone] [facility]: [phone] [facility]: [phone] [facility] FAX: [phone] Nan Cheney MSW - 03/30/2019 12:57 PM PDTSOCIAL WORK D/C PLAN:SNF: [facility] NEXT STEPS:Await bed availability INTERVENTION: ROBIN called and left message for Roneugene at [facility] regarding if they are willing to accept pt and to discuss transportation to and from dialysis. ROBIN also called and left message for [place] Medicaid transportation regarding if they can transp ort pt to and from dialysis upon DC. Pt states that she goes to [facility] dialys is in [place], [place] on Wed, Wed, and Fridays from 12:00-4:00 pm. ROBIN left message with [facility] dialysis regarding if there was any way that they may also be able to help with transportation to and from dialysis while pt is in rehab and to ensure that pt still has her chair time scheduled. [facility] is only open M on, Wednesday and Wednesday. ASSESSMENT/CHART REVIEW:73 yr old femalewith a history of ESRD on hemodialysis, hypertens ion, type 2 diabetes, hypothyroidism,chronic anemia,hyperlipidemia, hx of stroke [facility] lesion noted on MRI concerning fo r osteomyelitis. ROBIN met with pt's sister, Yina, and her cousin, Keri, who were waiting in pt's room while s he was in dialysis. ROBIN will need to follow up with pt re: d/c planning. Pt's sister and cousin related that pt mostly lives at Yina's house outside [facility] [place], but does not like to be tied down because she enjoys attending [place] festivals and many events. She does at [facility] weekly. Pt has a vehicle and is very independent. D/C TRANSPORT:tbd BARRIERS TO D/C:none CONTACTS: Yina La: sister India Tilley: sister [place] Transportation: [place] Medicaid Transportation fax: [phone] [facility]: [phone] fax: [phone] [facility] [phone] [facility]: [phone] signed by JENNIFER Xavier at 03/30 1:09 PM PDTRafter, Michelle Taylor DO - 03/30/2019 11:09 AM PDTFormatting of [...] with a history of stroke transferred from [facility] for evaluation of T11-T12 lesion noted on [...] need three times weekly dialysis while at [facility] as well. SW t o help determine [...] dialysis patient - has OP clinic in [place] already ---> will need SW to help [...] SNF - awaiting to hear back from [facility], in [place], [place] regarding possible acceptance there. Medically ready [...] Single Lumen 03/24/19 2143 Left Lateral Forearm gnng-jce-amzmxz daniel ter system 20 gauge;1 09/16 in length 5 days Line Hemodialysis AV [...] - 99 mg/dL Final Comment: Performed by [facility] [address] [place] [address] 03/29/2019 21:09 157 (H) 65 - 99 mg/dL Final Comment: Performed by [facility] [address] [place] [address] 03/29/2019 18:50 91 65 - 99 mg/dL Final Comment: Performed by [facility] [address] [place] [address] 12/09/2018 18:05 113 (H) 70 - 109 [...] this chart may have been created with AppRedeem voice recognition software. Occasi onal wrong-word or sound-alike substitutions may have occurred due to the inherent mckeon itations of voice recognition software. Please read the chart carefully and recognize, using context, where these substitutions have occurred rgJesus mcdonald MD - 03/30/2019 7:15 AM PDT . Infectious Diseases Progress Note Pt. Name/Age/: Estefani Tilley 73 y.o. 1945 Med. Record Number: [id number] Date of admission: 03/24/2019 Patient admitted with [...] Electronically signed by: Jesus Whitney, 03/30/2019 7:15 [facility] Mary Wade RN - 03/30/2019 6:16 [...] intention has depression wishful of Monitoring Requirements [facility] Suicide Policy [facility] Suicide Risk/Telesitter Screening Utilizing this [...] 03/29/2019 4:18 PM PDTSOCIAL WORK D/C PLAN:SNF: [facility] NEXT STEPS:Await bed availability INTERVENTION: SW called and spoke with admissions person at [facility], they are still discussing pt's case. [...] anemia,hyperlipidemia, hx of stroke [facility]-T12 lesion noted on MRI concerning fo r osteomyelitis. SW met with pt's sister, Yina, and her cousin, Keri, who were waiting in pt's room while s he was in dialysis. SW will need to follow up with pt re: d/c planning. Pt's sister and cousin related that pt mostly lives at Yina's house outside [place], [place], but does not like to be tied down because she enjoys attending [place] festivals and many events. She does at [facility] weekly. Pt has a vehicle and is very independent. D/C TRANSPORT:tbd BARRIERS TO D/C:none CONTACTS: Yina La: sister India Tilley: sister [place] Medicaid Transportation: [facility]: [phone] fax: [phone] [facility] [phone] signed by JENNIFER Contreras at 03/29/2019 4:20 PM PDTHsu, Randy Nunez MD - 03/29/2019 12:32 PM PDT [facility] INPATIENT ROUNDING NOTE Date of Service: 03/29/2019 Rounding Physician: Randy Corrigan MD Patient Name: Estefani Tilley : 1945 Medical Record: [id number] Hospital Summary: Estefani Tilley is a 73 y.o. female with a PMHx of ESRD, HTN, Dm type 2, hypothyroidism, HLd, CVA who is under the care of Dr Muñoz at [facility] who dialyzes MWF admitted with [...] mcg Oral Once per day on Wed Wed Wed furosemide 80 mg Oral Daily hydrALAZINE [...] bruit and thrill Recent Labs Lab 03/29/19 0519 03/28/19 0458 03/26/19 0411 WBC 4.55 4.25 4.57 [...] Trace Corrigan MD, 03/29/2019, 12:32 after, Michelle DO Brandon - 03/29/2019 12:12 PM PDT Patient: Estefani Tilley Date of : 1945 Admit Date: 03/24/2019 Date of Service: 03/29/2019 PCP: Francisca Womack PA-C Hospital Day: Hospital Day: 6 Hospital Course: 73-year-old female with history of ESRD on hemodialysis, hypertension, type 2 diabetes, hyp othyroidism, chronic anemia, hyperlipidemia with a history of stroke transferred [facility] for evaluation of T11-T12 lesion noted on [...] awaiting to hear from [facility], in [place] regarding possible acceptance. May be able [...] dialysis patient - has OP clinic in [place] already ---> will need SW to help [...] SNF - awaiting to hear back from [facility], in [place], [place] regarding possible acceptance there. Could possibly [...] Signs 03/27 700 - 03/28 0659 03/28 700 - 03/29 0659 03/29 700 - 03/29 [...] Single Lumen 03/24/19 2143 Left Lateral Forearm nvie-kdm-idmlpn daniel ter system 20 gauge;1 / in length 4 days Line Hemodialysis AV [...] - 99 mg/dL Final Comment: Performed by [facility] [address] [place] [address] 03/28/2019 21:06 144 (H) 65 - 99 mg/dL Final Comment: Performed by [facility] [address] [place] [address] 03/28/2019 11:22 119 (H) 65 - 99 mg/dL Final Comment: Performed by [facility] [address] [place] [address] 12/09/2018 18:05 113 (H) 70 - 109 [...] this chart may have been created with AppRedeem voice recognition software. Occasi onal wrong-word or sound-alike substitutions may have occurred due to the inherent mckeon itations of voice recognition software. Please read the chart carefully and recognize, using context, where these substitutions have occurred [place], Primitivo Pelaez - 03/29/2019 9:36 AM PDT Pharmacy Progress [...] P&T-approved Vancomycin Protocol Electronically signed by: Zari Mitchell, PharmD 03/29/2019 9:36 Jesus Wade MD - 03/29/2019 7:35 A M PDT Infectious Diseases Progress Note Pt. Name/Age/: Estefani Tilley 73 y.o. 1945 Med. Record Number: [id number] Date of admission: 03/24/2019 Patient admitted with [...] Electronically signed by: Jesus Whitney, 03/29/2019 7:35 [facility] zech, Carolina Kearney RN - 03/28/2019 7:08 PM [id number] - Report called to [facility] LISA. Pt's belongings . I pad and I phone w/ chargers as well as pt's purse, and shoes, and shirt and pants all sent with her to [address] [place] [address]. Pt had been sitting up eating dinner. Ate much better this evening. Ate 40% of h er dinner. Drank 1/2 of her boost. Doing better with much encouragement. Pt appeared sad todeepa humphrey, and I spent a lot of time visiting with her. After some time she started crying and darshan ed that she lost her 50 year old daughter this year. She said she of an aneurysm. Pt do ing much better this evening. Smiled off and on and thanked me for time spent with her. Noti fied [address] [place] [address] RN of pt's recent loss. Transferred at [...] with a history of stroke transferred [facility] for evaluation of T11-T12 lesion noted on [...] Single Lumen 03/24/19 2143 Left Lateral Forearm hcel-bur-qxoiqo daniel ter system 20 gauge;1 1/4 in [...] - 99 mg/dL Final Comment: Performed by [facility] [address] [place] [address] 03/28/2019 07:09 75 65 - 99 mg/dL Final Comment: Performed by [facility] [address] [place] [address] 03/27/2019 20:38 109 (H) 65 - 99 mg/dL Final Comment: Performed by [facility] [address] [place] [address] 12/09/2018 18:05 113 (H) 70 - 109 [...] this chart may have been created with AppRedeem voice recognition software. Occasi onal wrong-word or sound-alike substitutions may have occurred due to the inherent mckeon itations of voice recognition software. Please read the chart carefully and recognize, using context, where these substitutions have occurred Cordell Mcgarry, [facility] - 03/28/2019 2:57 PM PDTSOCIAL WORK D/C PLAN: SNF: [facility] NEXT STEPS: Await bed availability INTERVENTION: On-going dc planning. Rec'd update from [facility]. They confirm they have r ec'd clinical notes and are currently reviewing. SW will follow. ASSESSMENT/CHART REVIEW:73 yr old femalewith a history of ESRD on hemodialysis, hypertens ion, type 2 diabetes, hypothyroidism,chronic anemia,hyperlipidemia, hx of [facility] noted on MRI concerning fo r osteomyelitis. SW met with pt's sister, Yina, and her cousin, Keri, who were waiting in pt's room while s he was in dialysis. SW will need to follow up with pt re: d/c planning. Pt's sister and co in related that pt mostly lives at Yina's house outside [facility] [place], but does not like to be tied down because she enjoys attending [place] festivals and many events. She does atten d dialysis weekly. Pt has a vehicle and is very independent. D/C TRANSPORT: tbd BARRIERS TO D/C: none CONTACTS: Yina La: sister India Tilley: sister [facility]: [phone] fax: [phone] [facility] [phone] illum, Mario Alberto morales MD - 03/28/2019 7:34 AM PDTFormatting of this note might be different from the maynor rollins Infectious Diseases Progress Note Pt. Name/Age/: Estefani Jimenez Jarek 73 y.o. 1945 Med. Record Number: [id number] Date of admission: 03/24/2019 Patient admitted with [...] Electronically signed by: Carlos Jansen, 03/28/2019 7:34 [facility] Katey Solis MD - 03/27/2019 8:58 PM PDT Patient: Estefani Tilley Date of : 1945 Admit Date: 03/24/2019 Date of Service: 03/27/2019 PCP: Francisca Womack PA-C Hospital Day: Hospital Day: 4 Hospital Course: 73-year-old female with history of ESRD on hemodialysis, hypertension, type 2 diabetes, hyp othyroidism, chronic anemia, hyperlipidemia with a history of stroke transferred from [facility] [place] [facility] for evaluation of T11-T12 lesion noted on MRI concerning for osteomyeliti s. Infectious disease consulted. Status post aspiration from her thoracic spine, Gram stain negative, cultures pending. Rosemary ent started on empiric vancomycin and cefepime. Will need 6 weeks of IV antibiotics. Discussed with nephrology, recommend placement of Tillman catheter instead of PICC line for nursing home IV antibiotics. Nephrology following for maintenance hemodialysis. SW following for SNF. Assessment and Plan: Assessment of active problems addressed today: Osteomyelitis/discitis of T11, T12 vertebra Afebrile, improved WBC count, improved CRP Status post aspiration from her thoracic spine, Gram stain negative, cultures pending- foll ow Infectious disease help appreciated Continue vancomycin and cefepime Echocardiogram negative for any endocarditis. Patient will need IV antibiotics for 6 weeks. 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 Pain management -trial of lidocaine [...] Alert and Oriented. Objective: Vital Signs 03/25 07 - 03/26 0659 03/26 07 - 03/27 0659 03/27 0700 - 03/27 2058 Most Rec ent Temp [...] Single Lumen 03/24/19 2143 Left Lateral Forearm fwik-akn-jounwt daniel ter system 20 gauge;1 09/16 in [...] mcg Oral Once per day on Wed Wed Wed furosemide 80 mg Oral Daily hydrALAZINE [...] - 99 mg/dL Final Comment: Performed by [facility] [id number] [facility] [place] [address] 03/27/2019 13:58 82 65 - 99 mg/dL Final Comment: Performed by [facility] [place] [id number] [facility] [place] [address] 03/27/2019 06:39 83 65 - 99 mg/dL Final Comment: Performed by [facility] [id number] [facility] [place] [address] 12/09/2018 18:05 113 (H) 70 - 109 [...] this chart may have been created with AppRedeem voice recognition software. Occasi onal wrong-word or sound-alike substitutions may have occurred due to the inherent mckeon itations of voice recognition software. Please read the chart carefully and recognize, using context, where these substitutions have occurred arlin Diaz, [facility] - 03/27/2019 3:17 PM PDTSOCIAL WORK D/C PLAN: SNF: [facility] NEXT STEPS: Await bed availability INTERVENTION: Rec'd call from Emili at [facility]. She states the contracted f acility near pt's home is [facility]. Spoke with pt and with sister India. [facility] Copy of Pasrr placed in light chart with request to file into jos rds. SW will follow. ASSESSMENT/CHART REVIEW:73 yr old femalewith a history of ESRD on hemodialysis, hypertens ion, type 2 diabetes, hypothyroidism,chronic anemia,hyperlipidemia, hx of stroke [facility] noted on MRI concerning fo r osteomyelitis. SW met with pt's sister, Yina, and her cousin, Keri, who were waiting in pt's room while s he was in dialysis. SW will need to follow up with pt re: d/c planning. Pt's sister and co in related that pt mostly lives at Yina's house outside [place], [place], but does not like to be tied down because she enjoys attending [place] festivals and many events. She does atten d dialysis weekly. Pt has a vehicle and is very independent. D/C TRANSPORT: tbd BARRIERS TO D/C: none CONTACTS: Yina La: sister India Tilley: sister [facility]: [phone] fax: [phone] [facility] [phone] Gregg Mcgarry LICSW - 03/27/2019 2:17 PM PDTFormatting of this note might be different from jerald more. SOCIAL WORK D/C PLAN: SNF NEXT STEPS: SW to follow up with pt regarding SNF preference INTERVENTION: On-going dc planning, chart reviewed and met with pt. Discussed need of nursing home IV abx, Discussed options. Provided list of [...] pt mostly lives at Yina's house outside [facility], [place], but does not like to be tied down because she enjoys attending [place] festivals and many events. She does atten d dialysis weekly. Pt has a vehicle and is very independent. ASSESSMENT/CHART REVIEW:73 yr old femalewith a history of ESRD on hemodialysis, hypertens ion, type 2 diabetes, hypothyroidism,chronic anemia,hyperlipidemia, hx of stroke [facility] lesion noted on MRI concerning fo r osteomyelitis. D/C TRANSPORT: tbd BARRIERS TO D/C: none CONTACTS: Yina La Sister [phone] India Tilley Sister [phone] Irish Cadet, Business Analysis Specialist - 03/27/2019 1:33 PM PDTFormatting of this [...] (H)). Lab Results Component Value Date/Time SHANE 17.7 03/27/2019 05:12 I/O last 3 completed shifts: In: 360 [P.O.:360] Out: 1 [Urine:1] I/O this shift: In: - Out: 2000 Micro/Cultures: BCx - NGTD, BiopsyCx - NGTD Per P&T-approved Vancomycin Protocol Electronically signed by: Aimee Carroll, Business Analysis Specialist 03/27/2019 13:33Electronically si gned by Ray Joel, PharmD at 03/27/2019 2:04 PM PDT Associated attestation - Ray Joel PharmD - 03/27/2019 2:04 PM PDTI reviewed and agr ee with the assessment and plan. Ray Joel, PharmD 03/27/2019 14:04 Randy Corrigan MD - 03/27/2019 10:52 AM PDT [facility] INPATIENT ROUNDING NOTE Date of Service: 03/27/2019 Rounding Physician: Randy Corrigan MD Patient Name: Estefani Tilley : 1945 Medical Record: [id number] Hospital Summary: Estefani Tilley is a 73 y.o. female with a PMHx of ESRD, HTN, Dm type 2, hypothyroidism, HLd, CVA who is under the care of Dr Muñoz at [facility] who dialyzes MWF admitted with [...] -- 27 28 27 30 BUN -- 18 CREA -- 3.82* 3.01* 4.02* 3.78* [...] signed by: Trace Corrigan MD, 03/27/2019, 10:52 GiCarlos perdomo MD - 03/27/2019 7:10 AM PDT Infectious Diseases Progress Note Pt. Name/Age/: Estefani Tilley 73 y.o. 1945 Med. Record Number: [id number] Date of admission: 03/24/2019 Patient admitted with [...] Electronically signed by: Carlos Jansen, 03/27/2019 7:10 [facility] Katey Solis MD - 03/26/2019 5:40 PM PDT Patient: Estefani Tilley Date of : 1945 Admit Date: 03/24/2019 Date of Service: 03/26/2019 PCP: Francisca Womack PA-C Hospital Day: Hospital Day: 3 Hospital Course: 73-year-old female with history of ESRD on hemodialysis, hypertension, type 2 diabetes, hyp othyroidism, chronic anemia, hyperlipidemia with a history of stroke transferred from [facility] [place] [facility] [place] for evaluation of T11-T12 lesion noted on [...] Alert and Oriented. Objective: Vital Signs 03/24 07 - 03/25 0659 03/25 700 - 03/26 0659 03/26 0700 - 03/26 1740 Most Rec ent Temp [...] Single Lumen 03/24/19 2143 Left Lateral Forearm wyvh-uzi-fotseo daniel ter system 20 gauge;1 1/4 in [...] mcg Oral Once per day on Wed Wed Wed furosemide 80 mg Oral Daily insulin [...] - 99 mg/dL Final Comment: Performed by [facility] [address] [place] [address] 03/26/2019 06:49 116 (H) 65 - 99 mg/dL Final Comment: Performed by [facility] [address] [place] [address] 03/25/2019 20:37 110 (H) 65 - 99 mg/dL Final Comment: Performed by [facility] [address] [place] [address] 12/09/2018 18:05 113 (H) 70 - 109 [...] this chart may have been created with AppRed[employer]em voice recognition software. Occasi onal wrong-word or sound-alike substitutions may have occurred due to the inherent mckeon itations of voice recognition software. Please read the chart carefully and recognize, using context, where these substitutions have occurred [facility] - 03/26/2019 10:52 AM [...] mg/dL (H)). Lab Results Component Value Date/Time [facility] 20.2 03/26/2019 04:11 I/O last 3 completed shifts: In: 70 [I.V.:15; IV Piggyback:55] Out: - I/O this shift: In: - Out: 1 [Urine:1] Micro/Cultures: BCx - NGTD, BiopsyCx - NGTD Per P&T-approved Vancomycin Protocol Electronically signed by: Jose Menard, Business Analysis Specialist 03/26/2019 10:52 su, Randy Nunez MD - 03/26/2019 1 0:38 AM PDT [facility] INPATIENT ROUNDING NOTE Date of Service: 03/26/2019 Rounding Physician: Randy Corrigan MD Patient Name: Estefani Tilley : 1945 Medical Record: [id number] Hospital Summary: Estefani Tilley is a 73 y.o. female with a PMHx of ESRD, HTN, Dm type 2, hypothyroidism, HLd, CVA who is under the care of Dr Muñoz at [facility] who dialyzes MWF admitted with possible osteo disccitis t11/t12 ASSESSMENT AND PLAN 1. ESRD/HD dependent Access is LUE AVF working well No indications for HD today Usually dialyzes MWF at [facility] Hd tommorow 2. Anemia Hg [...] Min: 92 % Max: 99 % 03/25 07 - 03/26 0700 In: 70 [I.V.:15] Out: - AOx3 JVp not elevated Chest is clear CVS RRR Abdomen Nt Ext no edema LUE AVF with good bruit and thrill Recent Labs Lab 03/26/1941003/25/19 0918 03/24/19 0518 WBC 4.57 5.34 5.46 HGB 10.2* 10.2* 9.9* HCT 32.1* 31.5* 31.3* PLT 179 192 177 Recent Labs Lab 03/26/1941003/25/19 0918 03/24/19 0518 03/23/19 1903 NA 133* 135 141 137 K 4.3 5.0 4.4 4.2 CL 99 101 105 101 CO2 27 28 27 30 BUN 18 CREA 3.82* 3.01* 4.02* 3.78* CALCIUM [...] Jarek 73 y.o. 1945 Med. Record Number: [id number] Date of admission: 03/24/2019 Patient admitted with [...] Electronically signed by: Carlos Jansen, 03/26/2019 8:03 [facility] Katey Solis MD - 03/25/2019 3:50 PM PDT Patient: Estefani Tilley Date of : 1945 Admit Date: 03/24/2019 Date of Service: 03/25/2019 PCP: Francisca Womcak PA-C Hospital Day: Hospital Day: 2 Hospital Course: 73-year-old female with history of ESRD on hemodialysis, hypertension, type 2 diabetes, hyp othyroidism, chronic anemia, hyperlipidemia with a history of stroke transferred from [facility] [place] [facility] [place] for evaluation of T11-T12 lesion noted on [...] Signs 03/23 700 - 03/24 0659 03/24 700 - 03/25 0659 03/25 700 - 03/25 [...] Single Lumen 03/24/19 2143 Left Lateral Forearm ugch-vbg-wlwkso daniel ter system 20 gauge;1 1/4 in [...] - 99 mg/dL Final Comment: Performed by [facility] [address] [place] [address] 03/25/2019 06:52 107 (H) 65 - 99 mg/dL Final Comment: Performed by [facility] [address] [place] [address] 03/24/2019 20:11 112 (H) 65 - 99 mg/dL Final Comment: Performed by [facility] [address], [place] [address] 12/09/2018 18:05 113 (H) 70 - 109 [...] this chart may have been created with App[employer]eem voice recognition software. Occasi onal wrong-word or sound-alike substitutions may have occurred due to the inherent mckeon itations of voice recognition software. Please read the chart carefully and recognize, using context, where these substitutions have occurred su, Randy Nunez MD - 0 03/25/2019 1:47 PM PDT [facility] INPATIENT ROUNDING NOTE Date of Service: 03/25/2019 Rounding Physician: Randy Corrigan MD Patient Name: Estefani Tilley : 1945 Medical Record: [id number] Hospital Summary: Estefani Tilley is a 73 y.o. female with a PMHx of ESRD, HTN, Dm type 2, hypothyroidism, HLd, CVA who is under the care of Dr Muñoz at [facility] who dialyzes MWF admitted with possible osteo disccitis t11/t12 ASSESSMENT AND PLAN 1. ESRD/HD dependent Access is LUE AVF working well No indications for HD today Usually dialyzes MWF at [facility] She is below her EDW [...] with any questions Electronically signed by: Trace Corrgian MD, 03/25/2019, 13:47 Nan Cheney MSW - 03/25/2019 10:49 AM PDT SOCIAL WORK [...] pt mostly lives at Yina's house outside [place], [place], but does not like to be tied down because she enjoys attending [place] festivals and many events. She does atten d dialysis weekly. Pt has a vehicle and is very independent. ASSESSMENT/CHART REVIEW:73 yr old femalewith a history of ESRD on hemodialysis, hypertens ion, type 2 diabetes, hypothyroidism,chronic anemia,hyperlipidemia, hx of stroke [facility] lesion noted on MRI concerning fo r osteomyelitis. D/C TRANSPORT: tbd BARRIERS TO D/C: none CONTACTS: Yina La Sister [phone] India Tilley Sister [phone] Carlos Gonzales M D - 03/25/2019 8:34 AM PDT Infectious Diseases Progress Note Pt. Name/Age/: Estefani Tilley 73 y.o. 1945 Med. Record Number: [id number] Date of admission: 03/24/2019 Patient admitted with [...] Electronically signed by: Carlos Jansen, 03/25/2019 8:34 [facility] Jose Gamez, Business Analysis Specialist - 03/24/2019 10:46 PM PDTFormatting of this [...] 4.02 mg/dL (H)). No results found for: VANCOTROUGH, VANCORANDOM I/O last 3 completed shifts: In: 800 [P.O.:300; I.V.:500] Out: 1428 No intake/output data recorded. Micro/Cultures: BCx - pending, BiopsyCx - pending Per P&T-approved Vancomycin Protocol Electronically signed by: Jose Menard, Business Analysis Specialist 03/24/2019 22:46 Gladys Daugherty MSW - 9 4:53 PM PDT SOCIAL [...] pt mostly lives at Yina's house outside [place], [place], but do es not like to be tied down because she enjoys attending [place] festivals and many events. She does attend dialysis weekly. Pt has a vehicle and is very independent. ASSESSMENT/CHART REVIEW:73 yr old female with a history of ESRD on hemodialysis, hypertensi on, type 2 diabetes, hypothyroidism, chronic anemia, hyperlipidemia, hx of stroke transferre d from [facility] for evaluation of T11-T12 lesion noted on MRI concerning for ost eomyelitis. D/C TRANSPORT: tbd BARRIERS TO D/C: none CONTACTS: Yina La Sister [phone] India Tilley Sister [phone] Katey Solis MD - 03/24/2019 3:53 PM PDTPatient seen and examined. Chart reviewed. Briefly, 73-year-old female with history of ESRD on hemodialysis, hypertension, type 2 diab etes, hypothyroidism, chronic anemia, hyperlipidemia with a history of stroke transferred fr [facility] [place] for evaluation of T11-T12 lesion noted on [...] not have any p raza, consider antidepressants. pediatric social worker consulted for concerns for housing concerns [...] 1250 mg IV once given 03/23 @ [address] [facility]. 2. Target Trough: 15-20 mcg/ml 3. ESRD [...] 3.78 mg/dL (H)). No results found for: VANCMAKAYLA, ALEJANDROOM No intake/output data recorded. No intake/output data recorded. Micro/Cultures: Microbiology Results (72 hrs) Procedure Component Value Units Date/Time Culture, Blood [[id number]] Collected: 03/23/192332 Order Status: Sent Lab Status: In process Updated: 03/23/192348 Specimen: Blood Culture, Blood [[id number]] Collected: 03/23/192254 Order Status: Sent Lab Status: In process Updated: 03/23/192336 Specimen: Blood Per P&T-approved Vancomycin Protocol Electronically signed by: Fiona Norman PharmD 03/24/2019 2:49 documented in thi s encounter H&P Notes Erlinda Simon MD - 03/24/2019 2:02 AM PDTFormatting of this note might be different f rom the original. Patient: Estefani Tilley Date of : 1945 Admit Date: 03/24/2019 Date of Service: 03/24/2019 PCP: Francisca Womack PA-C Assessment and Plan: 73 yr old female with a history of ESRD on hemodialysis, hypertension, type 2 diabetes, hyp othyroidism, chronic anemia, hyperlipidemia, hx of stroke transferred from [facility] for evaluation of T11-T12 lesion noted on MRI concerning for osteomyelitis. Possible discitis/osteomyelitis of T11-T12 vertebrae Imaging concerning for osteomyelitis/discitis. Mild paravertebral soft tissue thickening a nd enhancement noted. No drainable fluid. Its possible that it could be DJD given multileve l Osteoarthritis changes noted on imaging. ESR 61, CRP 31. tmax 99.0 Normal wbc. Acute onset of pain x 6 days with chills and rigors concerning for acute infection Other DDx- DJD , rule out metastatic disease. BC x 2 done OSH prior to abx administration. Patient received 1 dose of cefepime and vancomycin at outside hospital. She received 1 dose of vancomycin at 7:[address] Jansen, advised to hold off on abx until the bx this am. So empiric abx stopped. - trend CRP - IR to do tissue bx. Send results to Gram stain and cx - pain control. - ID consulted HTN BP high on initial evaluation, likely 2/2 to pain Looks like she takes labetalol, losartan and lasix Resumed all home meds Prn labetalol DM-2 Used to weigh 400 pounds 2 yrs ago Now down to 145 lbs. hba1c 6.6 most recent Does not take any medications for diabetes BS 196, place her on mod dose ssi. ESRD on HD ESRD presume 2/2 to HTn and Dm M, w and F HD sessions in [place] Last HD session Wednesday Will call nephrology in am to co-ordinate HD. HLP Lovastatin on med list. But pt reports not taking Macrocytic anemia Likely anemia due to ESRD Hb 11.0 CODE STATUS: full code, sister and son surrogate decision maker. DVT PROPHYLAXIS: SCDs Active Hospital Problems Diagnosis probable Discitis of thoracic region ESRD (end stage renal disease) on dialysis DM (diabetes mellitus), type 2 Macrocytic anemia Essential hypertension Hyperlipidemia DJD (degenerative joint disease) Resolved Hospital Problems No resolved problems to display. I have reviewed and updated the problem list. Chief Complaint: Probable osteomyelitis of thoracic vertebrae History of Present Illness: Estefani Tilley is a 73 y.o. female with a history of ESRD on hemodialysis, hypertension, type 2 diabetes, hypothyroidism, chronic anemia, hyperlipidemia, hx of stroke on aspirin , pt lives in [place], [place]. She presented to [facility] yesterday complaining of 6 days of severe back pain, intermittent chills and feeling cold no fevers. CT chest abdomen and pelvis findings were highly suspicious for osteomyelitis/discitis at T11-T12 level. No rich to have diffuse subcutaneous edema throughout the chest abdomen pelvis consistent with t hird spacing of fluid. She then underwent MRI of the lumbar spine which showed multilevel D CORRIE and findings at T11-T12 level suspicious for osteomyelitis no fluid signal. There was an paravertebral soft tissue enhancement and thickening noted which would be atypical for stri ctly DJD related changes. ED physician over there discussed with Dr. Amaro who recommended b iopsy of the spine for further evaluation. Answered to [facility] for IR procedure. Patient reports that she fell 2 months ago and broke her right hip. Labs at outside hospital reviewed normal white count, ESR at 61, CRP 31. Review of Systems: Review of Systems Constitutional: Positive for chills, malaise/fatigue and weight loss. Respiratory: Negative. Cardiovascular: Positive for leg swelling. Negative for PND. Gastrointestinal: Negative. Genitourinary: Negative. Musculoskeletal: Positive for back pain, joint pain and myalgias. History: Past Medical History: Diagnosis Date Anemia Arthritis Back pain Breast cancer (HCC) s/p left mastectomy in 2004, s/p chemotherapy Cancer (HCC) Diabetes (HCC) Heart disease Hemodialysis patient ([facility]) mon-wed-fri History of blood clots Hypercholesteremia Hypertension Hypothyroidism Renal failure Seasonal allergies Past Surgical History: Procedure Laterality Date APPENDECTOMY EYE SURGERY 2009 HIP SURGERY Right 12/04/2018 Procedure: ORIF HIP W/CANNULATED SCREWS; Surgeon: Scott Koroma MD; Location: [facility] MAIN OR HYSTERECTOMY MASTECTOMY 2006 left ear NOSE SURGERY 2009 REMOVAL TUNNELED CATHETER Right 04/04/[address] Stephenson SHUNT PLACEMENT/INSERTION N/A 11/08/2017 Procedure: Tunneled Hemodialysis Catheter Placement; Surgeon: Nora Leo MD; Location : [facility] MAIN OR SHUNT PLACEMENT/INSERTION Right 02/04/2018 Procedure: INSERTION SHUNT HEMODIALYSIS W/ PERMACATH; Surgeon: Heather Navarro MD; L ocation: [facility] MAIN OR VEIN SURGERY Right 01/04/2018 Procedure: Right Transposed Basilic Vein to Proximal Radial Artery; Surgeon: Santos Stephenson MD, FACS; Location: [facility] MAIN OR Social History Socioeconomic History [...] file Social History Narrative Not on file COMMENTS- Never smoker, lives in [place], [place]. Reports living in her car most of the time, sometimes she sleeps on the couch in her sisters or sons house. Denies alcohol or rec reational drug use. Family History Problem Relation Age of Onset Diabetes Other grandfather Diabetes Other grandmother Cancer Sister Allergies Allergen Reactions Amoxicillin Other (See Comments) Patient stated she can't tolerate amoxicillin and stated its hard on her stomach. Lisinopril Pt states she does not remember what was the reaction she had to lisinopril. I asked her if it gave her a cough and she said "I cant remember, maybe it made me sick to my stomach". Naprosyn [Naproxen] PT REPORTED TAKING NOT TAKING Medication Sig [...] Pr MD devi b complex-vitamin c-folic acid (NEPHRO-RENATA) tablet Take 1 tablet by mouth Daily. Taking Historical ProviderMD Cholecalciferol 4000 units TABS Take 4,000 Units by mouth Daily. Taking Gopi kearney DO doxercalciferol (HECTOROL) 1 MCG CAPS Take 0.5 mg by mouth Three times a week. Taking His eliical Provider, epoetin karthik (EPOGEN, PROCRIT) 10,000 units/mL injection Inject 4,000 Units under the skin Three times a week. Taking Historical Provider, furosemide (LASIX) 80 mg tablet Take 1 tablet by mouth Daily. Taking 50 tablet Edison avila MD hydrophilic ointment Apply 1 Application topically Daily. For dry skin Historical Bruno avila MD insulin glargine (LANTUS SOLOSTAR) 100 units/mL injection (pen) Inject 12 Units under the skin nightly. Not Taking Historical ProviderMD Insulin Pen Needle 31G X 5 MM MISC by Does not apply route. Historical Provider, labetalol (NORMODYNE) 200 mg tablet Take 1 tablet by mouth 2 times daily. Patient not taki ng: Reported on 01/15/2019 100 tablet Edison Keys MD Lancets MISC by Does not apply route. Historical Provider, levothyroxine (SYNTHROID, LEVOTHROID) 75 MCG tablet Take 75 mcg by mouth every morning (be fore breakfast). Historical Provider, lidocaine-prilocaine (EMLA) cream Apply 1 Application topically Daily. To access 1 hour pr ior to dialysis Historical Provider, losartan (COZAAR) 100 MG tablet Take 1 tablet by mouth Daily. Patient not taking: Reporte d on 01/15/2019 Gopi Muñoz, montelukast (SINGULAIR) 10 mg tablet Take 10 mg by mouth nightly. For asthma or allergies Historical Provider, olopatadine (PATANOL) 0.1% ophthalmic solution Place 1-2 drops into both eyes 2 times maite y. Historical Provider, ondansetron (ZOFRAN) 4 mg tablet Take 1 tablet by mouth every 6 hours as needed for Nausea . Patient not taking: Reported on 01/15/2019 20 tablet Scott Koroma MD oxyCODONE-acetaminophen (PERCOCET) 5-325 mg per tablet Take 1-2 tablets by mouth every 6 h ours as needed for Pain. Exempt. 60 tablet Scott Koroma MD pantoprazole (PROTONIX) 40 mg tablet Take 40 mg by mouth every morning (before breakfast). Historical Provider, UNABLE TO FIND Med Name: Cadoexomer Iodine 0.9 % gel. Apply a small amount to affected ar ea as directed during dressing changes. Historical Provider, Physical: Vital Signs 03/21 700 - 03/22 0659 03/22 07 - 03/23 0659 03/23 700 - 03/24 0202 Most Rec ent Temp (C) 37.2 37.2 (99) Pulse 66 - 80 66 Resp 14 - 18 18 BP 143/69 - 163/77 163/77 SpO2 (%) 97 - 99 99 Weight (kg) 66.7 66.7 kg (147 lb) Wt Readings from Last 3 Encounters: 03/23/19 66.7 kg (147 lb) 02/03/19 70.8 kg (156 lb) 01/05/19 70.8 kg (156 lb) Physical Exam Constitutional: She is oriented to person, place, and time. No distress. Appears malnourished Thin muscle mass Eyes: Pupils are equal, round, and reactive to light. Neck: Neck supple. Cardiovascular: Normal rate and regular rhythm. Pulmonary/Chest: Effort normal and breath sounds normal. Faint left basilar crackles Abdominal: Soft. Bowel sounds are normal. She exhibits no distension. There is no tendernes s. Musculoskeletal: She exhibits edema. 1-2+ LE edema Neurological: She is alert and oriented to person, place, and time. Slight LLE weakness chronic attributes to prior stroke Tenderness lower thoracic and upper Lumbar spinal area to palpation. Paraspinal tenderness along that area Skin: Skin is warm and dry. Vitals reviewed. Labs and Imaging: Recent Results (from the past 24 hour(s)) [...] Absolute nRBC 0.00 0.00 - 0.01 K/uL Sedimentation Rate Result Value Ref Range ESR 61 (H) <30 mm/hr Comprehensive Metabolic Panel Result Value Ref Range [...] Ref Range Procalcitonin 0.23 <=0.50 ng/mL Comment Ct Chest Abdomen Pelvis Wo Contrast Result Date: 03/23/2019 EXAM: CT CHEST ABDOMEN PELVIS WO CONTRAST dated 03/23/2019 5:18 PM HISTORY:fall and intracta ble pain at L lower posterior thorax/L cva upper abdomen Comparison: CT chest 11/03/[address] abdomen and pelvis 11/02/2017. TECHNIQUE: Imaging is performed from chest through the pubi c symphysis without contrast. DOSE: DLP 296.85 mGy-cm FINDINGS: CHEST: HEART AND AORTA: The re is no aneurysmal dilatation of the thoracic aorta. There is enlargement of the main pulm onary artery. There is mild cardiac chamber enlargement. No pericardial thickening. MEDIAS TINUM: No pneumomediastinum. No mediastinal or hilar lymphadenopathy. LUNGS:There is a smal [id number] layering left pleural effusion. There is atelectasis in the lingula. There i s no pneumothorax. Scarring or atelectasis in the anterior right upper lobe. No significan t noncalcified pulmonary nodules. The airways are patent. No bronchiectasis. CHEST WALL: N o axillary or visible supraclavicular lymphadenopathy. No visible chest wall contusion. ABD OMEN AND PELVIS: LIVER: The unenhanced liver is unremarkable. GALLBLADDER: The gallbladder i s not distended. There are no calcified gallstones. No visible biliary ductal dilatation. SPLEEN: The unenhanced spleen is unremarkable. There is no splenomegaly. PANCREAS: The unen hanced pancreas is unremarkable. No peripancreatic inflammatory change. ADRENALS: No adrena l enlargement. No adrenal masses. KIDNEYS: The kidneys are unremarkable in attenuation. Th ere are no visible focal renal lesions. There is no nephrolithiasis. There is no obstructi ve uropathy. BOWEL: Mild to moderate stool retention. There is no evidence for gastrointest inal tract obstruction. There is no evidence for appendicitis. There is diverticulosis whic h predominates in the sigmoid colon. There is no evidence for active diverticulitis. VASCUL ATURE AND LYMPH NODES: There is no aneurysmal dilatation of the abdominal aorta. There is no pelvic or abdominal lymphadenopathy. There is heavy calcified disease throughout the abd ominal aorta and branches. BLADDER: The bladder is decompressed and not well evaluated. UTER US AND ADNEXA:The uterus appears to be surgically absent. No adnexal masses. BONES: There i s an area of endplate irregularity and bony destruction involving the T11-T12 disc level. T here is sclerosis throughout the T11 and T12 vertebral bodies. No significant loss of heigh t at this time. OTHER: There is no intra-abdominal free fluid. There is no intra-abdominal free air. There is diffuse subcutaneous edema throughout the chest abdomen and pelvis. IMPR ESSION - Findings are very highly suspicious for osteomyelitis/discitis at the T11-T12 level . Small to moderate layering left pleural effusion. Diffuse subcutaneous edema throughout th e chest, abdomen, and pelvis can be seen with third spacing of fluid. Diverticulosis without evidence for active diverticulitis. Dictated and Signed by: Rolan Orellana MD Electronic ally signed: 03/23/2019 6:41 PM Mri Lumbar Spine W Wo Contrast Result Date: 03/23/2019 EXAM: MRI LUMBAR SPINE W WO CONTRAST dated 03/23/2019 5:18 PM HISTORY:RIB PAIN COMPARISON: CT chest abdomen pelvis 03/23/2019. TECHNIQUE: Multiplanar multisequence MR imaging of the meenu mbar spine performed prior to and following the uneventful intravenous administration of 7 c c of gadolinium contrast. This is performed on a [employer] MRI scanner. FINDINGS:There are 5 l umbar-type vertebral bodies. This is either assumed for counting purposes or documented on prior studies. Mild leftward curvature. There are Modic type I endplate changes at T11-T12. There is a minimal amount of fluid in the anterior margin of the disc. There is diffuse e gloria throughout all the vertebral bodies. There are Modic type I endplate changes at L2-L3 and to lesser extent L3-L4. There is disc desiccation at L2-L3 through L5-S1. There is ante rolisthesis of L5 x 5 mm. No compression deformities. The conus terminates at the thoracic lumbar junction. The visible distal cord is unremarkable. No abnormal epidural fluid maría ections. Small amount of endplate signal change in the anterior inferior T10 vertebral body with associated enhancement. There is some paravertebral soft tissue enhancement at this l evel is well. The following levels are evaluated in the axial plane: T11-T12: Small posterio r disc protrusion. Mild narrowing of the central spinal canal. The neural foramen are gooden nt. There is diffuse enhancement along the endplates and throughout the vertebral bodies. There is enhancement of the paravertebral soft tissues centered around the T11-T12 level. T1 2-L1: No significant central stenosis or neural foraminal narrowing. L1-2: No significant ce ntral stenosis or neural foraminal narrowing. L2-3: Broad posterior disc protrusion. Mild f acet arthrosis and ligamentum flavum redundancy. Mild narrowing of the central spinal canal . Mild/moderate bilateral neural foraminal narrowing. L3-4: Broad posterior disc protrusion . Mild to moderate facet arthrosis. Ligament flavum redundancy. Mild facet effusions bilat erally. Mild narrowing of the central spinal canal. Mild to moderate narrowing of the neur al foramen bilaterally. L4-5: Broad posterior disc protrusion. Moderate facet arthrosis and ligamentum flavum redundancy. Moderate narrowing of the central spinal canal and encroachm ent on the subarticular recesses. Moderate left and moderate to severe right neural foramin al narrowing. L5-S1: Broad posterior disc protrusion. Severe facet arthrosis bilaterally. M ild narrowing of the central spinal canal. Moderate right and severe left neural foraminal narrowing. Partial visualization of a prominent left pleural effusion. IMPRESSION - Findings remain somewhat suspicious for osteomyelitis. There is not fluid signal throughout the dis c which would be atypical for osteomyelitis/discitis. However, there is mild paravertebral s oft tissue thickening and enhancement. This would be atypical for strictly degenerative rela rich changes which is in the differential. Spondylosis in the lumbar spine with central spina l canal narrowing most significantly affecting L4-L5 where it is moderate. Neural foraminal narrowing most significant affects L5-S1 on the left where it is severe. It is also moderat e on the left and moderate the right at L4-L5. Correlate clinically for any additional signs and symptoms of infection. Dictated and Signed by: Rolan Orellana MD Electronically sign ed: 03/23/2019 9:25 PM I expect this patient will be hospitalized for greater than 2-midnights and expect the post -hospital plan to be discharge to home or to an adult foster home. I spent 70 minutes with the patient and on the patient's unit, with over 50% spent in couns eling and/or coordination of care. Please refer to the Assessment and Plan for details. Electronically signed by: Erlinda Simon MD 03/24/2019 2:02 Portions of this chart may have been created with [employer] voice recognition software. Occasi onal wrong-word or sound-alike substitutions may have occurred due to the inherent mckeon itations of voice recognition software. Please read the chart carefully and recognize, using context, where these substitutions have occurred documented in this encounter Procedure Notes Daniela Lanza MD - 03/31/2019 10:02 AM PDTProcedure(s): HEMODIALYSISPre-Procedure Diagn ose(s): ESRD (end stage renal disease) (HCC)Post-Procedure Diagnose(s): ESRD (end stage wendie l disease) (HCC) Patient Active Problem List Diagnosis Macrocytic anemia Arthritis Back pain History of blood clots Cancer Heart disease Essential hypertension Seasonal allergies DM (diabetes mellitus), type 2 Hyperlipidemia Depressive disorder, not elsewhere classified 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 Facial cellulitis Hypothyroidism 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 she says that she feels 'ok' today. she de nies any CP or SOB. The following portions of the patient's history were reviewed and updated as appropriate: l aboratory data, allergies, current medications, and problem list. P.E. BP 156/78 | Pulse 73 | Temp 36.7 C (98.1 F) | Resp 16 | Ht 1.727 m (5' 8") | Wt 65 .6 kg (144 lb 10 oz) | SpO2 96% | BMI 21.99 kg/m General appearance: Pleasant, not in acute distress. Lungs: Good A/E to auscultation bilaterally. There are no wheezes. Heart: Regular rate and rhythm without any rub, gallop. Abdominal exam: Soft and nontender with normal bowel sounds. Extremities: Warm to touch with no leg edema. There is no cyanosis. Neurological: Awake, alert, and oriented to time, place, and person. There is no asterixis . Access: R UE AVF. Lab Results Component Value Date BUN 16 03/31/2019 EGFR 11 (L) 03/31/2019 NA 135 03/31/2019 K 3.6 03/31/2019 CL 101 03/31/2019 CO2 29 (H) 03/31/2019 PHOS 3.4 03/30/2019 MG 1.9 03/30/2019 HGB 9.7 (L) 03/31/2019 Assessment: Ms. Tilley is a 73 y.o. female patient with ESRD HD dependant, per a MWF schedule. Complications identified during her dialysis treatment: none so far. Recommendations: UF as tolerated IV Epo with HD Advise fluid restriction of 1.2L per 24 hrs Next dialysis to be determined. Daniela Lanza MD FACP documented in this e ncounter Consult Notes Randy Corrigan MD - 03/24/2019 9:31 AM PDT [facility] Nephrology Consultation Patient Name: Estefani Tilley : 1945 Medical Record: [id number] DATE OF SERVICE: 03/24/2019 CONSULTING PHYSICIAN: Trace Nunez MD REFERRING PHYSICIAN: Dr Erlinda Simental REASON FOR CONSULTATION: ESRD HD management HISTORY OF PRESENT ILLNESS Estefani Tilley is a 73 y.o. female who has a history of ESRD, HTN, Dm type 2, hypothyroi dism, HLd, CVA who is under the care of Dr Muñoz at [facility] who dialyzes MWF. Her usually HD orders are 3.5hrs 17H 2k3.5ca EDW 73kg and received 6K of epo and 0.5 of allen ruth with each treatment. RN at unit states patient is non compliant with oral meds and als o with treatment duration. In any event she presents with severe back pain and was found to have possibel t11/t12 oste omyelitis and discittis. She dialyzes via a LUE fistula and does not have any indwelling cat heters. She contineus to produce urine but denies urinary tract symptoms. She is shceulde fo r aspiration and biopsy today. ID is involved and recommended starting antibiotics post bx. PAST MEDICAL HISTORY Past Medical History: Diagnosis Date Anemia Arthritis Back pain Breast cancer (HCC) s/p left mastectomy in 2004, s/p chemotherapy Cancer (HCC) Diabetes (HCC) Heart disease Hemodialysis patient ([facility]) wed-wed-wed History of blood clots Hypercholesteremia Hypertension Hypothyroidism Renal failure Seasonal allergies Stroke (cerebrum) ([facility]) CURRENT MEDICATIONS Scheduled Meds: aspirin 81 mg Oral Daily cholecalciferol 4,000 Units Oral Daily doxercalciferol [...] QAM AC probiotic 1 capsule Oral BID PRN Meds:albuterol, Hypoglycemia Management AND POCT Glucose AND dextrose AND d extrose 10%, docusate sodium, HYDROmorphone, labetalol, melatonin, ondansetron, ondansetron, oxyCODONE-acetaminophen, senna ALLERGIES Allergies Allergen Reactions Amoxicillin Other (See [...] my stomach". Naprosyn [Naproxen] REVIEW OF SYSTEMS A complete ROS was performed with all others negative, except as noted in the HPI SOCIAL HISTORY Social History Social History Narrative Not on file She reports that she has never smoked. She has never used smokeless tobacco. She reports th at she does not drink alcohol or use drugs. FAMILY HISTORY Family History Problem Relation Age of Onset Diabetes Other grandfather Diabetes Other grandmother Cancer Sister PHYSICAL EXAM Vitals Current 24 hour Min/Max BP 188/77 BP Min: 143/69 Max: 208/80 HR 74 Pulse Min: 66 Max: 80 Temp 35.8 C (96.4 F) Temp Min: 35.8 C (96.4 F) Max: 37.2 C (99 F) RR 18 Resp Min: 14 Max: 18 Sats SpO2: 96 % on L/min room air SpO2 Min: 96 % Max: 99 % 03/23 07 - 03/24 0700 In: 550 [P.O.:300; I.V.:250] Out: - Physical Exam AOX3 JVP not elevated Chest is clear CVS RRR Abdomen Nt Ext no edema LUE AVF with good thrill and bruit Skin no rashes LABORATORY DATA: Recent Labs Lab 03/24/19 0518 03/23/19 1835 WBC 5.46 5.8 HGB 9.9* 11.0* HCT 31.3* 34.7 PLT 177 220 Recent Labs Lab 03/24/1951703/23/19 1903 NA 141 137 K 4.4 4.2 CL 105 101 CO2 27 30 BUN 19 18 CREA 4.02* 3.78* CALCIUM 7.9* 8.5* ALBUMIN -- 3.6 Diagnostic Studies: Available data and images were reviewed personally. Significant results and findings are ad dressed here or in the Assessment and Plan. ASSESSMENT AND PLAN 1. ESRD/HD dependent Access LUE AVF Under her outpatient EDW and appears relatively euvolemic HD today 3.5 hours f160 3K challenge UF 2L given hypertension 2. Uncontrolled HTN Add nifedipine XL 30 Hold ESAs for now 3. Anemia Target Hg 9-11 No BOYD until bp better controlled 4. BMM On hectoral 5. Osteomyelitis/disciitis For pain control avoid morphine and baclofen, use neurontin sparingly and cautiously Dilaudid/fentanyl preferred Antibiotics per ID Thank you for the opportunity to be of assistance. Electronically signed: Please feel free to contact me with any questions, Electronically signed by: Trace Corrigan MD, 03/24/2019, 9:31 This note was generated using a voice recognition software program. Although every effort i s made to edit content, senior net architect errors may occur. If there are any questions, please c ontact our office for further clarification. Carlos Gonzales MD - 03/24/2019 7:20 AM PDT INFECTIOUS DISEASES CONSULT NOTE This patient is seen at the request of Dr. Hill for consultative opinion regarding verteb ral discitis. Date of service: 03/24/2019 Patient seen for T11-T12 vertebral discitis/osteomyelitis Impression: Fairly sudden worsening of mid back pain with associated chills, with imaging suggestive of T11-T12 vertebral discitis/osteomyelitis in this debilitated diabetic 73-year-old female on dialysis for end-stage renal disease. Note she is 2 months out from pinning of hip fractur e, reportedly no infectious complications. Agree completely with aspiration/biopsy. Patient has received a dose of vancomycin and cef epime at referring facility, I would hold on any further empiric antibiotics until we can ob tain sample. After sample and biopsy obtained, agree with empiric vancomycin and cefepime. Nothing at this point to suggest atypical pathogens, but would favor fungal and AFB stains and cultures on the sample. I have placed orders for the special stain and cultures. I wou ld anticipate prolonged course of intravenous antibiotics via secure access. If culture is negative, would anticipate empiric therapy. Suggestions: #1 hold further empiric antibiotics #2 proceed with aspiration and biopsy today. Would suggest pathology, along with routine A FB and fungal stain and cultures, I have added the fungal and AFB stain and cultures to the orders. #3 after biopsy, start empiric vancomycin and cefepime #4 follow-up blood cultures #5 consider baseline transthoracic echocardiogram #6 follow-up above stains and cultures, and adjust therapy as appropriate #7 anticipate 6 weeks intravenous antibiotics via secure access #8 May need further radiographic work-up depending on above results #9 further recommendations based on above results and clinical course HPI: The patient is a 73 y.o. female with complicated medical history as outlined below, n ote patient is diabetic and is on hemodialysis for end-stage renal disease. 2 months ago pam posadas suffered a right hip fracture, and had this pinned. This was not associated with any infe ctious complications per patient, and she feels like it is slowly improving. Over the last couple of months she has had some difficulty with mid back pain, that dramatically worsened over the last week. She also think she has had some chills but she is not sure about fevers . No recent skin soft tissue infections, no other unusual recent exposures, no dental infec tions. She was seen at her local facility and then transferred to [facility] in [place] . CT scan was suggestive of T11-T12 vertebral discitis, MRI was also suggestive. She was t ransferred here for biopsy and consideration of possible surgical intervention. She did rec eive a dose of vancomycin and cefepime at referring facility, not on antibiotics here. Manuela castillo reports a penicillin allergy, she does not know any details of this, has tolerated cephalo sporins well. Pain seems to be recently well controlled, no nausea vomiting diarrhea headac he review of systems otherwise negative. Labs here reveal a white count of 5.46, ESR 61, pr ocalcitonin 0.23, CRP, high-sensitivity, 31.12. Medications, past medical history, family history, social history all reviewed, please see below. Past Medical History: Diagnosis Date Anemia Arthritis Back pain Breast cancer (HCC) s/p left mastectomy in 2004, s/p chemotherapy Cancer (HCC) Diabetes (HCC) Heart disease Hemodialysis patient ([facility]) wed-wed-wed History of blood clots Hypercholesteremia Hypertension Hypothyroidism Renal failure Seasonal allergies Stroke (cerebrum) ([facility]) Past Surgical History: Procedure Laterality Date APPENDECTOMY EYE SURGERY 2009 HIP SURGERY Right 12/04/2018 Procedure: ORIF HIP W/CANNULATED SCREWS; Surgeon: Scott Koroma MD; Location: [facility] MAIN OR HYSTERECTOMY MASTECTOMY 2005 left ear NOSE SURGERY 2008 REMOVAL TUNNELED CATHETER Right 04/04/[address] Stephenson SHUNT PLACEMENT/INSERTION N/A 11/08/2017 Procedure: Tunneled Hemodialysis Catheter Placement; Surgeon: Nora Leo MD; Location : [facility] MAIN OR SHUNT PLACEMENT/INSERTION Right 02/04/2018 Procedure: INSERTION SHUNT HEMODIALYSIS W/ PERMACATH; Surgeon: Heather Navarro MD; L ocation: [facility] MAIN OR VEIN SURGERY Right 01/04/2018 Procedure: Right Transposed Basilic Vein to Proximal Radial Artery; Surgeon: Santos Stephenson MD, FACS; Location: [facility] MAIN OR Patient Active Problem List Diagnosis Macrocytic anemia [...] right femur probable Discitis of thoracic region Current medications: aspirin 81 mg Oral Daily cholecalciferol 4,000 Units Oral Daily doxercalciferol 0.5 mcg Oral Once per day on Wed furosemide 80 mg Oral Daily insulin lispro 0-12 Units Subcutaneous 4x Daily WC and HS labetalol 200 mg Oral BID levothyroxine 75 mcg Oral QAM AC losartan 100 mg Oral Daily olopatadine 1-2 drop Both Eyes BID pantoprazole 40 mg Oral QAM AC probiotic 1 capsule Oral BID Allergies: Allergies Allergen Reactions Amoxicillin Other (See Comments) Patient stated she can't tolerate amoxicillin and stated its hard on her stomach. Lisinopril Pt states she does not remember what was the reaction she had to lisinopril. I asked her if it gave her a cough and she said "I cant remember, maybe it made me sick to my stomach". Naprosyn [Naproxen] Social history: Social History Socioeconomic History Marital status: Single [...] file Social History Narrative Not on file Family history: Family History Problem Relation Age of Onset Diabetes Other grandfather Diabetes Other grandmother Cancer Sister Review of systems: 14 point review of systems was reviewed with the patient and was negative except for the po sitive found in the history of present illness. Physical exam: Temp: [35.9 C (96.7 F)-37.2 C (99 F)] 35.9 C (96.7 F) Pulse: [66-80] 67 Resp: [14-18] 16 BP: (143-208)/(58-89) 153/58 General: HEENT: No thrush, dry mucous membranes, no conjunctival injection Cardiovascular: Regular rate and rhythm, question soft systolic murmur Respiratory: Crackles at bases, no wheezes Abdomen: Soft nontender positive bowel tones do not feel a spleen tip Genitourinary: Deferred Extremities/Musculoskeletal: No acute synovial changes, 2+ edema in lower extremities Skin: No generalized rash or peripheral embolic stigmata Lymph: No neck or axillary adenopathy Neurological: Awake alert interactive, weak left lower extremity Psychiatric: Normal affect, no confusion Lab results: Recent Results (from the past 24 hour(s)) [...] Absolute nRBC 0.00 0.00 - 0.01 K/uL Sedimentation Rate Result Value Ref Range ESR 61 (H) <30 mm/hr Comprehensive Metabolic Panel Result Value Ref Range [...] Value Ref Range Procalcitonin 0.23 <=0.50 ng/mL [facility] Basic Metabolic Panel Result Value Ref Range Na 141 135 - 145 mmol/L K 4.4 3.5 - 5.0 mmol/L Cl 105 99 - 109 mmol/L CO2 27 21 - 28 mmol/L Anion Gap 9 5 - 16 mmol/L Ca 7.9 (L) 8.5 - 10.2 mg/dL BUN 19 8 - 25 mg/dL Creatinine 4.02 (H) 0.50 - 1.00 mg/dL Glucose 158 (H) 65 - 99 mg/dL Estimated GFR 10 (L) >=90 mL/min/1.73m2 CBC with Differential Result Value Ref Range WBC 5.46 3.80 - 11.00 K/uL RBC 3.02 (L) 3.70 - 5.10 M/uL Hemoglobin 9.9 (L) 11.3 - 15.5 g/dL Hct 31.3 (L) 34.0 - 46.0 % MCV 103.6 (H) 80.0 - 100.0 fL MCH 32.8 27.0 - 34.0 pg MCHC 31.6 (L) 32.0 - 35.5 g/dL RDW-CV 16.0 (H) 11.0 - 15.5 % Platelet Count 177 150 - 400 K/uL MPV 10.2 9.3 - 12.7 fL % Neutrophils 63.6 40.0 - 75.0 % % Lymphocytes 23.6 15.0 - 48.0 % % Monocytes 6.4 0.0 - 12.0 % % Eosinophils 4.6 0.0 - 7.0 % % Basophils 0.9 0.0 - 2.0 % % Immature Granulocytes 0.9 0.0 - 1.0 % Absolute Neutrophils 3.47 1.90 - 7.40 K/uL Absolute Lymphocytes 1.29 1.00 - 3.90 K/uL Absolute Monocytes 0.35 0.00 - 0.80 K/uL Absolute Eosinophils 0.25 0.00 - 0.50 K/uL Absolute Basophils 0.05 0.00 - 0.10 K/uL Absolute Immature Granulocytes 0.05 (H) 0.00 - 0.03 K/uL Protime INR Result Value Ref Range Prothrombin Time 13.3 12.0 - 14.2 sec INR 1.1 0.9 - 1.1 POC Glucose Result Value Ref Range Glucose, POC 164 (H) 65 - 99 mg/dL Imaging studies: Ct Chest Abdomen Pelvis Wo Contrast Result Date: 03/23/2019 EXAM: CT CHEST ABDOMEN PELVIS WO CONTRAST dated 03/23/2019 5:18 PM HISTORY:fall and intracta ble pain at L lower posterior thorax/L cva upper abdomen Comparison: CT chest 11/03/[address] abdomen and pelvis 11/02/2017. TECHNIQUE: Imaging is performed from chest through the pubi c symphysis without contrast. DOSE: DLP 296.85 mGy-cm FINDINGS: CHEST: HEART AND AORTA: The re is no aneurysmal dilatation of the thoracic aorta. There is enlargement of the main pulm onary artery. There is mild cardiac chamber enlargement. No pericardial thickening. MEDIAS TINUM: No pneumomediastinum. No mediastinal or hilar lymphadenopathy. LUNGS:There is a smal [id number] layering left pleural effusion. There is atelectasis in the lingula. There i s no pneumothorax. Scarring or atelectasis in the anterior right upper lobe. No significan t noncalcified pulmonary nodules. The airways are patent. No bronchiectasis. CHEST WALL: N o axillary or visible supraclavicular lymphadenopathy. No visible chest wall contusion. ABD OMEN AND PELVIS: LIVER: The unenhanced liver is unremarkable. GALLBLADDER: The gallbladder i s not distended. There are no calcified gallstones. No visible biliary ductal dilatation. SPLEEN: The unenhanced spleen is unremarkable. There is no splenomegaly. PANCREAS: The unen hanced pancreas is unremarkable. No peripancreatic inflammatory change. ADRENALS: No adrena l enlargement. No adrenal masses. KIDNEYS: The kidneys are unremarkable in attenuation. Th ere are no visible focal renal lesions. There is no nephrolithiasis. There is no obstructi ve uropathy. BOWEL: Mild to moderate stool retention. There is no evidence for gastrointest inal tract obstruction. There is no evidence for appendicitis. There is diverticulosis whic h predominates in the sigmoid colon. There is no evidence for active diverticulitis. VASCUL ATURE AND LYMPH NODES: There is no aneurysmal dilatation of the abdominal aorta. There is no pelvic or abdominal lymphadenopathy. There is heavy calcified disease throughout the abd ominal aorta and branches. BLADDER: The bladder is decompressed and not well evaluated. UTER US AND ADNEXA:The uterus appears to be surgically absent. No adnexal masses. BONES: There i s an area of endplate irregularity and bony destruction involving the T11-T12 disc level. T here is sclerosis throughout the T11 and T12 vertebral bodies. No significant loss of heigh t at this time. OTHER: There is no intra-abdominal free fluid. There is no intra-abdominal free air. There is diffuse subcutaneous edema throughout the chest abdomen and pelvis. IMPR ESSION - Findings are very highly suspicious for osteomyelitis/discitis at the T11-T12 level . Small to moderate layering left pleural effusion. Diffuse subcutaneous edema throughout th e chest, abdomen, and pelvis can be seen with third spacing of fluid. Diverticulosis without evidence for active diverticulitis. Dictated and Signed by: Rolan Orellana MD Electronic ally signed: 03/23/2019 6:41 PM Mri Lumbar Spine W Wo Contrast Result Date: 03/23/2019 EXAM: MRI LUMBAR SPINE W WO CONTRAST dated 03/23/2019 5:18 PM HISTORY:RIB PAIN COMPARISON: CT chest abdomen pelvis 03/23/2019. TECHNIQUE: Multiplanar multisequence MR imaging of the meenu mbar spine performed prior to and following the uneventful intravenous administration of 7 c c of gadolinium contrast. This is performed on a 3Tesla MRI scanner. FINDINGS:There are 5 l umbar-type vertebral bodies. This is either assumed for counting purposes or documented on prior studies. Mild leftward curvature. There are Modic type I endplate changes at T11-T12. There is a minimal amount of fluid in the anterior margin of the disc. There is diffuse e gloria throughout all the vertebral bodies. There are Modic type I endplate changes at L2-L3 and to lesser extent L3-L4. There is disc desiccation at L2-L3 through L5-S1. There is ante rolisthesis of L5 x 5 mm. No compression deformities. The conus terminates at the thoracic lumbar junction. The visible distal cord is unremarkable. No abnormal epidural fluid maría ections. Small amount of endplate signal change in the anterior inferior T10 vertebral body with associated enhancement. There is some paravertebral soft tissue enhancement at this l evel is well. The following levels are evaluated in the axial plane: T11-T12: Small posterio r disc protrusion. Mild narrowing of the central spinal canal. The neural foramen are gooden nt. There is diffuse enhancement along the endplates and throughout the vertebral bodies. There is enhancement of the paravertebral soft tissues centered around the T11-T12 level. T1 2-L1: No significant central stenosis or neural foraminal narrowing. L1-2: No significant ce ntral stenosis or neural foraminal narrowing. L2-3: Broad posterior disc protrusion. Mild f acet arthrosis and ligamentum flavum redundancy. Mild narrowing of the central spinal canal . Mild/moderate bilateral neural foraminal narrowing. L3-4: Broad posterior disc protrusion . Mild to moderate facet arthrosis. Ligament flavum redundancy. Mild facet effusions bilat erally. Mild narrowing of the central spinal canal. Mild to moderate narrowing of the neur al foramen bilaterally. L4-5: Broad posterior disc protrusion. Moderate facet arthrosis and ligamentum flavum redundancy. Moderate narrowing of the central spinal canal and encroachm ent on the subarticular recesses. Moderate left and moderate to severe right neural foramin al narrowing. L5-S1: Broad posterior disc protrusion. Severe facet arthrosis bilaterally. M ild narrowing of the central spinal canal. Moderate right and severe left neural foraminal narrowing. Partial visualization of a prominent left pleural effusion. IMPRESSION - Findings remain somewhat suspicious for osteomyelitis. There is not fluid signal throughout the dis c which would be atypical for osteomyelitis/discitis. However, there is mild paravertebral s oft tissue thickening and enhancement. This would be atypical for strictly degenerative rela rich changes which is in the differential. Spondylosis in the lumbar spine with central spina l canal narrowing most significantly affecting L4-L5 where it is moderate. Neural foraminal narrowing most significant affects L5-S1 on the left where it is severe. It is also moderat e on the left and moderate the right at L4-L5. Correlate clinically for any additional signs and symptoms of infection. Dictated and Signed by: Rolan Orellana MD Electronically sign ed: 03/23/2019 9:25 PM Carlos Jansen MD documented in this en counter Miscellaneous Notes Plan of Care - Tiffany Herrera, RD - 03/31/2019 4:08 PM PDT Clinical Nutrition: Intake Analysis Recommendations to Care Team: 1. Consider appetite stimulate Assessment: Today's review of meals: Breakfast and Lunch: 117calories and 13 g protein. ESTIMATED NEEDS: Weight Used For Calculations: 63.6 kg (140 lb 3.4 oz) Energy Calorie Requirements: 4122-9168(REE x 1.2-1.4) Range Gm Protein (gm): 55-85 g (15-20% est. nutrient needs) For your reference, current, active order is: Diet general; Effective Now Supplements: Novasource Renal with meals Calorie count results for 03/30 PO Intake (x 1 meals) = 153 calories and 6 g protein Inadequate records; dinner meal ticket no saved for RD to review Interventions: 1. Will monitor diet tolerance and adequacy of PO intake, weight, labs, hydration status a nd stooling patterns Tiffany Herrera MS, RD [phone] DATE/TIME: 03/31/2019 16:12 lan of Genevieve Gama RN - 03/31/2019 2:57 PM PDTShift Summary: Pt off the floor most of the day for HD. REY fistula, R IJ CVC, flushing w/o difficulty. A& O, up with 1 assist. Pt to d/c home to [place] this afternoon after [employer] teach es family about IV abx administration. Receives oxycodone 5-10mg for chronic back pain. Campbell es N/V/D. VSS. ACHS CS WNL. lan of Calli Delgado Dietary [employer] - 03/31/2019 1:36 PM PDTFormattin g of this note might be different from the original. 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 Continue oral nutrition supplement 2. Meal preferences assessed; reviewed available menu options with patient 3. Will continue to check in with patient daily to assist with menu orders Nutrition Update: Patient ordered through 04/01. Improved appetite ordering balanced meals. Will continue t o follow pending d/c. Diet: For your reference, current, active order is: Diet general; Effective Now MONITORING / FOLLOW-UP PLAN: 1. Will continue to assist patient with meal ordering, education, and patient nutritional p references as needed. Electronically signed by: Lorna Lima [employer] 03/31/2019 13:37 NF Transfer - Michelle Obando DO - 03/31/2019 10:26 AM PDT LONG TERM FACILITY TRANSFER ORDERS Patient Name: Estefani Tilley Patient : 1945 Gender: female Date of Admission: 03/24/2019 Date of Discharge: 03/31/2019 Admitting Provider: Erlinda Simon MD Discharging Provider: Michelle Lopez DO Consultants: Nephrology, ID PCP: [facility] transferring to: [place] Provider after transfer: Facility Provider CODE STATUS: [x] Attempt CPR [] Do not resuscitate If patient is pulseless and not breathing, RN/SERGEANT AT ARMS may pronounce . Advanced Directives included: [] POLST [] MOLST/MOST [] Comfort One ([place]) [] Other: Code status discussed with: [x] Patient [] Spouse/Family [] DPOA [] Other: Isolation/Infection Precautions: [x] None Height: Height: 172.7 cm (5' 8") Wt Readings from Last 3 Encounters: 03/31/19 65.6 kg (144 lb 10 oz) 03/23/19 66.7 kg (147 lb) 02/03/19 70.8 kg (156 lb) Admitting Diagnosis: Osteomyelitis (HCC) Patient Active Problem List Diagnosis Macrocytic anemia [...] right femur probable Discitis of thoracic region Allergies Allergen Reactions Amoxicillin Other (See Comments) Patient stated she can't tolerate amoxicillin and stated its hard on her stomach. Lisinopril Pt states she does not remember what was the reaction she had to lisinopril. I asked her if it gave her a cough and she said "I cant remember, maybe it made me sick to my stomach". Naprosyn [Naproxen] Most Recent Immunizations Administered Date(s) Administered HEP B, 3 DOSE (ADULT) 06/22/2002 Hep B, Dialysis, 4 Dose 01/21/2018 INFLUENZA PF 65 Y OR >,TRIVALENT (FLUAD) 06/03/2018 INFLUENZA PF QUAD(PED/ADOL/ADULT),PSKT or VIAL 09/23/2017 INFLUENZA PF TRIVALENT(PED/ADOL/ADULT), PSKT 06/28/2015 INFLUENZA QUADR W/PRES (PED/ADOL/ADULT) MULTIDOSE 06/27/2014 INFLUENZA, [id number], UNSPECIFIED 08/28/2009 INFLUENZA, UNSPECIFIED FORMULATION 06/20/2013 PNEUMOCOCCAL CONJUGATE 13-VALENT (PCV13) 02/12/2016 PNEUMOCOCCAL POLYSACCHARIDE 23-VALENT (PPSV23) 07/30/2011 TD PF (2 LF TETANUS) (ADOL/ADULT) 06/22/2002 TDAP, (ADOL/ADULT) 06/17/2010, 06/17/2010 ZOSTER, 1 DOSE (ZOSTAVAX) 01/28/2012 Diet: [] As tolerated HEARING INSTRUMENT SPECIALIST may upgrade or downgrade diet as condition Indicates. [] RN may downgrade diet as indicated. Type: [x] Continue current diet of: Diet and Supplements Diet Diet general; Effective Now Number of Occurrences: Until Specified Order Questions: Type Diet general [] Other: Consistency/Precautions: [] Whole [] Thin Liquids [] Cut-up [] Jaconita Thick [] Advanced Chopped [] Honey Thickened [] Chopped [] Advanced Ground [] 1:1 feedings [] Ground/Pureed [] Other: Tube Feedings: [] PEG [] GT [] JT [] NGT [] Formula type: (Manager Skilled may change/substitute if indicated). [] Continuous Rate: ml/hr, infusing hrs/day [] Bolus feeds: ml every hours [] Additional water: ml every hours Respiratory: [] BiPAP at night & PRN SOB. Settings: O2 L bleed Dx: [] CPAP at night & PRN SOB. Settings: O2 L bleed Dx: [] Suction & Pulmonary toilet PRN secretion/sputum management. Dx: [] Incentive Spirometer QID and PRN while awake. Duration: Dx: [] Tracheostomy management per protocol [] Oxygen: Lpm NC/Trach [] Continuous [] NOC [] Humidified [] prn SaO2 < % [] prn SOB/dyspnea Dx: [] Other: Dx: Bladder: [] Follow nursing protocol for recent al removal [] Al catheter managment per nursing protocol - Indication: [] Permanent [] Temporary [] Remove al catheter on and follow nursing protocol for recent al remova l. [] Straight catheter every hour(s) and record amount drain Dx: [] Bladder scan every hour(s) and straight cath for > ml Dx: [] Suprapubic catheter management Dx: Other Lines, Tubes and Drains: (to be managed by nursing protocol) [x] IV access and location: __Tunneled R chest PICC [] Permanent [x] Temporary: Instructions/indications for removal of IV access: ____after completion of IV antibiotics [] May use Alteplase per protocol PRN occluded central venous catheter [] Colostomy [] Ileostomy [] Urostomy [] Nephrostomy [] Dialysis Access - Type & Location: [] Drains - Type & Location: [] Other: Activity/Therapies: []WBAT [] Weight Bearing Restricted (specify limb(s)): [] PT Evaluation & Management for: [] OT Evaluation & Management for: [] HEARING INSTRUMENT SPECIALIST Evaluation &Management for: [] Other: Wound/Skin Care: [] Follow current recommendations of the wound team for treatment. [] Follow standard nursing protocols for wound care. [] Wound Vac management per nursing protocol. Indication: Location: Settings: Change frequency: & prn [] Other: Labs/Imaging: [] PT/INR: Frequency: Dx: Goal INR: Duration of therapy: [] Fingerstick glucose checks: Dx: DM [] Other: Test/Study Needed/Frequency Diagnosis/Indication CBC, CMP, CRP Once weekly F/U antibiotics effect Follow up appointments and consultations: Date/Time: Date/Time I have advised this patient that he/she not use tobacco products. TB screening: Upon admission the 1st and 2nd step TST will be done as per protocol if Resid ent has no history of TB or a past positive TST. Pharmacist may substitute equivalent Rx based on facility or insurance formulary as needed unless otherwise specified by physician. Please write "GERMAINE" (Dispense as written) if a medi cation should not be substituted. Please make sure to write a diagnosis for ALL medications continued on transfer. Antibioti cs require a stop date. If medications do not contain a SIG, make sure doses/routes and deondre edule is included. Medication Orders New Medications Details Order Next Dose Due calcium acetate 667 mg capsule Take 1 capsule by mouth 3 times daily (with meals). aka: PHOSLO By: Michelle Lopez, DO Quant: 180 capsule cefepime (MAXIPIME) 1 g in sodium chloride 0.9% 50 mL IVPB Inject 1 g into the vein every 24 hours for 33 days. Indications: Infection of Bone and Arturo ne Marrow, Sepsis of Unknown Etiology Start: 04/01/2019 By: Michelle Lopez DO Quant: 33 each gabapentin 100 mg capsule Take 1 capsule by mouth Daily. aka: NEURONTIN By: Michelle Lopez DO Quant: 90 capsule gabapentin 300 mg capsule Take 1 capsule by mouth nightly. aka: NEURONTIN By: Michelle Lopez DO Quant: 90 capsule hydrALAZINE 25 mg tablet Take 1 tablet by mouth 2 times daily. aka: APRESOLINE By: Michelle Lopez DO Quant: 120 tablet NIFEdipine 90 mg ER tablet Take 1 tablet by mouth Daily. aka: PROCARDIA XL By: Michelle Lopez DO Quant: 30 tablet oxyCODONE 5 mg tablet Take 1 tablet by mouth every 4 hours as needed for Pain. aka: ROXICODONE By: Michelle Lopez DO Quant: 40 tablet probiotic capsule Take 1 capsule by mouth 2 times daily for 34 days. By: Michelle Lopez DO Quant: 68 capsule vancomycin in sodium chloride 0.9% 100 mL IVPB 500 mg IV on // after dialysis, through 05/03 Indications: Infection of Bone and Bone M arrow By: Michelle Lopez DO Quant: 14 each Unchanged Medications Details Order Next Dose Due albuterol 90 mcg/puff inhaler Inhale 2 puffs [...] Tabs Take 4,000 Units by mouth Daily. By: Gopi Muñoz DO epoetin karthik 10,000 units/mL injection Inject 4,000 Units under the skin Three times a week. aka: EPOGEN, PROCRIT furosemide 80 mg tablet Take 1 tablet by mouth Daily. aka: LASIX By: Edison Keys MD Quant: 50 tablet HECTOROL 1 MCG Caps Generic drug: doxercalciferol Take 0.5 mg by mouth Three times a week. hydrophilic ointment Apply 1 Application topically Daily. For dry skin Insulin Pen Needle 31G X 5 MM Misc by Does not apply route. labetalol 200 mg tablet Take 1 tablet by mouth 2 times daily. aka: NORMODYNE By: Edison Keys MD Quant: 100 tablet Lancets Misc by Does not apply route. levothyroxine 75 MCG tablet Take 75 mcg by mouth every morning (before breakfast). aka: SYNTHROID lidocaine-prilocaine cream Apply 1 Application topically Daily. To access 1 hour prior to dialysis aka: EMLA losartan 100 MG tablet Take 1 tablet by mouth Daily. aka: COZAAR By: Gopi Muñoz DO montelukast 10 mg tablet Take 10 mg by mouth nightly. For asthma or allergies aka: SINGULAIR olopatadine 0.1% ophthalmic solution Place 1-2 drops into both eyes 2 times daily. aka: PATANOL ondansetron 4 mg tablet Take 1 tablet by mouth every 6 hours as needed for Nausea. aka: ZOFRAN By: Scott Koroma MD Quant: 20 tablet pantoprazole 40 mg tablet Take 40 mg by mouth every morning (before breakfast). aka: PROTONIX Discontinued Medications insulin glargine 100 units/mL injection (pen) aka: Michelle ESCALANTE DO, certify that post hospital prison care is medically neces shar on a continuing basis for any of the conditions for which he/she received care during t his hospitalization. Check one: [x] Skilled [] Intermediate Additional Orders/Instructions: Physician's signature: 03/31/2019 10:26 [facility] USE ONLY: [] Admitting orders verbally reviewed with Admitting Physician, modified where appropriate, and approved. Verbal Order from Date: Time: _ RN name: RN signature: [] Admitting orders reviewed, modified where appropriate, and approved. Physician's signature: Date: Time: lan of Care - Omari La RN - 03/31/2019 3:30 AM PDT 5N Nursing Handoff Note Room # 501/501-02 ISO: None Full Code Item for assessment: RN Comments: Shift Summary: Patient ESRD on HD with REY fistula and RCVC. IVX abx for osteomyolitis- A&O HD 03/31. T2DM. Calm cooperative with cares. Pt stated constipation. Diagnosis: Discitis of thoracic region Mobility/Falls: Activity Level of Assistance: independent All Alarms: none present Valerio Fall Risk Level: High Barriers to Discharge: LDAs: VTE Prophylaxis: Venous Thromboembolism Prevention: patient refused intervention(s) Last Bowel Movement: Stool Occurrence: 1(pt reported) (03/27/191845) Active Infusions: dextrose 10% Skin: Skin Integrity: tattoo(s) Skin Integrity Comment: HD Cath-chest Last Notification: Provider Name/Title: Hospitalist (03/27/191947) Reason for Communication: Review case(Nahid Tillman order) (03/27/191947) Response: No new orders (03/27/191947) Mentation/CAM: CAM Score: no Therapy Involved: Physical ? Occupational ? Speech ? Resp ? Rec ? Dialysis: HD ? PD ? Diet: Diet/Nutrition Prescription: general Pain Management: C-SSRS Since you were last [...] intention has depression wishful of Monitoring Requirements [facility] Suicide Policy [facility] Suicide Risk/Telesitter Screening Utilizing this rating scale, the suicidal patient will be monitored in the following manner : ? Score <=2 "yes" responses, Patient does not require observation ? Score =3 "yes" responses, Patient can be observed using a Telesitter ? Score >=4 "yes" responses, Patient requires in person continual visual observation Appropriate interventions were placed based on the above criteria and room preparation will be completed for safety based on suicide observation protocols. Vitals: 03/30/19 0801 03/30/19 1000 03/30/19 1200 03/30/19 1535 BP: 146/65 147/65 150/73 Pulse: 70 70 71 Resp: 16 16 16 Temp: 36.6 C (97.9 F) 35.9 C (96.6 F) 36.3 C (97.3 F) TempSrc: Temporal SpO2: 96% 98% Weight: 65.5 kg (144 lb 6.4 oz) Height: Component Value Date/Time POCGLU 200 (H) 03/30/2019 2114 POCGLU 111 (H) 03/30/2019 1746 POCGLU 146 (H) 03/30/2019 1249 POCGLU 105 (H) 03/30/2019 0854 POCGLU 113 (H) 12/09/2018 1805 POCGLU 175 (H) 12/09/2018 1154 POCGLU 117 (H) 12/09/2018 0609 POCGLU 112 (H) 12/08/2018 0650 lan of Rayna Flores RN - 03/30/2019 10:37 PM PDTOsteomyelitis, 6 weeks ABX DC to SNF vs HH R arm fistula, HD tomorrow, tunneled cath General diet AO IND [id number] signed by Rayna Ochoa RN at 03/30/2019 10:39 PM PDTPlan of Shweta Arboleda RN - 03/30/2019 2:28 PM PDTFormatting of this note might be different fr om the original. 5N Nursing Handoff Note Room # 501/501-02 ISO: None Full Code Item for assessment: RN Comments: Shift Summary: Patient here with discitis, on iv abx daily. Has picc line in place, also HD fistula for d ialysis. A&O, independent in room. HD MWF. Planning to go home soon, unsure if snf or home w ith HH. Diagnosis: Discitis of thoracic region Mobility/Falls: Activity [...] Mentation/CAM: CAM Score: no Therapy Involved: Physical ? Occupational ? Speech ? Resp ? Rec ? Dialysis: HD ? PD ? Diet: Diet/Nutrition Prescription: renal, consistent carb Pain [...] intention has depression wishful of Monitoring Requirements [facility] Suicide Policy [facility] Suicide Risk/Telesitter Screening Utilizing this rating scale, the suicidal patient will be monitored in the following manner : ? Score <=2 "yes" responses, Patient does not require observation ? Score =3 "yes" responses, Patient can be observed using a Telesitter ? Score >=4 "yes" responses, Patient requires in person continual visual observation Appropriate interventions were placed based on the above criteria and room preparation will be completed for safety based on suicide observation protocols. Vitals: 03/30/19 0500 03/30/19 0801 03/30/19 1000 03/30/19 1200 BP: 146/65 147/65 Pulse: 70 70 Resp: 16 16 Temp: 36.6 C (97.9 F) 35.9 C (96.6 F) TempSrc: SpO2: 96% Weight: 63.7 kg (140 lb 6.9 oz) 65.5 kg (144 lb 6.4 oz) Height: Component Value Date/Time POCGLU 146 (H) 03/30/2019 1249 POCGLU 105 (H) 03/30/2019 0854 POCGLU 157 (H) 03/29/2019 2109 POCGLU 91 03/29/2019 1850 POCGLU 113 (H) 12/09/2018 1805 POCGLU 175 (H) 12/09/2018 1154 POCGLU 117 (H) 12/09/2018 0609 POCGLU 112 (H) 12/08/2018 0650 lan of Melanie - Tiffany Pickard RD - 03/30/2019 9:56 AM PDTFormatting of this note might be different from t he original. CLINICAL NUTRITION NUTRITION PROBLEMS: 1. Altered nutrient utilization related to DM and ESRD- pt is on dialysis 2. Possible involuntary weight loss as evidenced by 7.4% weight loss in 2 months. 3. Inadequate PO intake possible due to depression as evidenced by average intake of 15% x 6 days RECOMMENDATIONS: 1. Please start daily Renal Vitamin 2. Pt would benefit from B-1 400 mg IV x 1; then 100 mg PO/TF TID x 10 days 3. Pt may benefit from B12 @ 1000 mcg IM/day x 1 week, followed by 1000 mcg IM/week x 4 we eks, followed by monthly IM injections Or please consider checking methylmalonic acid levels. 4. Consider checking 1,25 dihydroxyvitamin D INTERVENTIONS: 1. Standing weight obtained: 65.50 kg 2. Will try supplements with meals 3. Will obtain NFPE as able to Patient is a 73 y.o. female admitted on 03/24/2019 with Osteomyelitis (HCC) [M86.9]. Reason For Assessment: per organizational policy ASSESSMENT: Difficult to assess pt today. Pt seemed to be depressed; E.G. RD asked pt when she had her last BM and pt answered, "When did YOU have last one?". Pt is also annoyed that she is on a Renal diet. Per review of weights, pt has possible weight loss of 16.5% in 2 months. Pt with very poor intake this admit < 20% of meals x 6 days. Will send [facility] h meals. Nutrition History Obtained? No Nutrition Focused Physical Exam Completed? Not appropriate time to complete Significant Nutrition History And Events: Average intake: 15% of meals Pertinent Procedures This Admit: x ANTHROPOMETRICS: Height: 68 inches Admit Weight: 63.50 kg Admit Weight Method: stated Pertinent Weight Changes This Admission: 03/30: 65.50 kg- standing weight RD present BMI: 21.91 (based on estimated dry wt: 65.50 kg) [place] Body Weight: 63.64 kg Usual Body Weight: See Epic weight hx; Weight History Per [facility] Records: 11/01/17: 87.20 k 04/04/18: 76.20 kg 01/05/19: 70.76 kg 02/03/19: 70.76 kg-- ? If stated ESTIMATED NEEDS: NUTRITIONAL INTAKE: For your reference, current, active order is: Diet renal; potassium 3 gm K; 90 gm CARB/Meal; Effective Now Supplements: no On Nutrition Support? no IVF: No IVF ADDITIONAL FACTORS AFFECTING NUTRITION ASSESSMENT: Food Allergies: NKFA Significant Active Wounds: reviewed Pertinent Labs: Altered GFR: A1c: 6.6 (elevated) MCV: 101.3 CKD-MBD PTH: 11/2018: 205 Vitamin D 25-hydroxy: 39 on 11/2018 1-25 Dihydroxy Vitamin D: Not assessed Pertinent Medications: Insulin Lispro; Synthroid ; Hectoral; Vitamin D-3 4000 international units Phosphate Binders: PhosLo; Antibiotics: Maxipime; Vanco; Lasix 80 mg daily Outpatient Medications: Nephro-Renata; Doxercalciferol; Pertinent Past Medical History: Anemia, Arthritis, Back pain, Breast cancer, Cancer, Diabe asha, Heart disease, Hemodialysis patient, History of blood clots, Hypercholesteremia, Hypert ension, Hypothyroidism, Renal failure, Seasonal allergies, and Stroke (cerebrum) MONITORIN. Will monitor diet tolerance and adequacy of PO intake, weight, labs, hydration status a nd stooling patterns Tiffany Herrera MS, RD [phone] DATE/TIME: 03/30/2019 10:22 lan of Care - Ress Geena walker RN - 03/29/2019 10:26 PM PDTFormatting of this note might be different fro m the original. 5N Nursing Handoff Note Room # [id number] ISO: None Full Code Item for assessment: RN Comments: Shift Summary: R arm fistula with +PTB, HD today. Patient needs 6 weeks IV antibiotics, will discharge to SNF. HX of breast cancer. Diagnosis: Discitis of thoracic region Mobility/Falls: Activity Level of Assistance: modified independence All Alarms: none present Valerio Fall Risk Level: High Barriers to Discharge: LDAs: VTE Prophylaxis: Venous Thromboembolism Prevention: patient refused intervention(s) Last Bowel Movement: Stool Occurrence: 1(pt reported) (03/27/19 1846) Active Infusions: dextrose 10% Skin: Skin Integrity: incision(s), tattoo(s) Skin Integrity Comment: (right elbow skin tear ) Last Notification: Provider Name/Title: Hospitalist (03/27/191947) Reason for Communication: Review case(Power Tillman order) (03/27/191947) Response: No new orders (03/27/191947) Mentation/CAM: CAM Score: no Therapy Involved: Physical ? Occupational ? Speech ? Resp ? Rec ? Dialysis: HD ? PD ? Diet: Diet/Nutrition Prescription: renal, consistent carb Pain [...] intention has depression wishful of Monitoring Requirements [facility] Suicide Policy [facility] Suicide Risk/Telesitter Screening Utilizing this rating scale, the suicidal patient will be monitored in the following manner : ? Score <=2 "yes" responses, Patient does not require observation ? Score =3 "yes" responses, Patient can be observed using a Telesitter ? Score >=4 "yes" responses, Patient requires in person continual visual observation Appropriate interventions were placed based on the above criteria and room preparation will be completed for safety based on suicide observation protocols. Vitals: 03/29/19 1500 03/29/19 1530 03/29/19 1542 03/29/19 1929 BP: 109/63 136/64 138/65 134/67 Pulse: 79 73 74 77 Resp: 16 18 Temp: 36.8 C (98.2 F) 36.4 C (97.6 F) TempSrc: Temporal SpO2: 98% 98% Weight: 60 kg (132 lb 4.4 oz) Height: Component Value Date/Time POCGLU 157 (H) 03/29/2019 2109 POCGLU 91 03/29/2019 1850 POCGLU 152 (H) 03/29/2019 1224 POCGLU 95 03/29/2019 0912 POCGLU 113 (H) 12/09/2018 1805 POCGLU 175 (H) 12/09/2018 1154 POCGLU 117 (H) 12/09/2018 0609 POCGLU 112 (H) 12/08/2018 0650 lan of Melanie - Luz Grove Dietary Tech-Clinical - 03/29/2019 4:33 PM PDTFormatting of this note m ight be different from the original. Computer Repair Engineer Clinical Nutrition Follow-up Note Nutrition Interventions: Referred patient to RD for further evaluation. Will continue to monitor nutrition status. Will visit patient daily to assist with menu ordering. Anthropometric Data Admit Wt: 140 lb (Stated 03/24) Current Wt: 132 lb (Post-Dialysis 03/29) Diet: For your reference, current, active order is: Diet renal; potassium 3 gm K; 90 gm CARB/Meal; Effective Now Nutrition Status: Patient continues with poor appetite per d/w RN. Poor po recorded 03/29 (2 5% and 0). Pt at dialysis at time of visit. After returning from dialysis, patient did order dinner with ambassador. Luz Cueto, FABIÁNTR DATE/TIME: 03/29/2019 16:34 lan of Melanie - Maribell Ji RN - 03/29/2019 1:05 PM PDTP t resting in bed this shift. Rt arm fistula with a good pulse and thrill. Went to dialysis a t around 1200 today. Rt chest tunneled picc line for nursing home antibiotic therapy. Antibioti cs due after dialysis today. Electronically signed by: Maribell Ji RN 03/29/2019 13:07 lan of Huan Cai RN - 03/29/2019 4:14 AM PDT Nursing Handoff Note Room# 501/501-02 Isolation:None Code Status: Full Code Item for mission assessment specialist Comments Shift Summary: Hx Breast CA, ESRD, type 2 DM, admitted for osteomyelitis but is not a surgi yancy candidate, has tunneled central line, will need 6 weeks of abx ending about 05/04, poor P O intake, will DC to SNF in 1-2 days when medically ready, somewhat of a flat affect due to the fact her daughter a year ago Dx/Tx: Discitis of thoracic region GI/Diet: Active Orders Diet Diet renal; potassium 3 gm K; 90 gm CARB/Meal; Effective Now Last bowel movement: Stool Occurrence: 1(pt reported) (03/27/191845) /Al: ? Voiding ? AL ? Purewick Central/Peripheral Line ? PIV ? Port ? PICC ? Other: Active Gtt: dextrose 10% Labs/Tx: Lab Results Component Value Date WBC 4.25 03/28/2019 HGB 9.9 (L) 03/28/2019 HCT 30.8 (L) 03/28/2019 PLT 171 03/28/2019 K 4.0 03/28/2019 MG 2.1 12/05/2018 PHOS 5.6 (H) 03/26/2019 POCGLU 144 (H) 03/28/2019 Current Chemo Plan: ? Chemo ? Radiation Start Date: End Date: Pain & Nausea Management: percocet Neuro/Mentation/CAM +/- A&O Respiratory/Oxygen/Cont.PulseOx: Room air Skin: Some bruises Mobility/HRFF: Therapy Involved? (PT/OT/ST/RT/CPM indep DC Plan: (Able to manage at home? List barriers) MD Notification: Notification Provider Name/Title: Hospitalist (03/27/191947) Provider Role: Hospitalist (03/27/191947) Family member notified: Daughter (03/24/19 0100) Method of Communication: Answering service (03/27/191947) Reason for Communication: Review case(Nahid Tillman order) (03/27/191947) Response: No new orders (03/27/191947) Notification Time: 1630 (03/24/19 163) ? I attest that I have reviewed and followed through with all orders applicable during my s hift. Frequency of vitals: Vitals: 03/28/19 1252 03/28/19 1924 03/28/19 2102 03/29/19 0000 BP: 141/66 143/69 166/75 158/69 Pulse: 69 73 70 60 Resp: Temp: 36.1 C (96.9 F) 35.9 C (96.6 F) 36.4 C (97.5 F) TempSrc: Temporal Temporal Temporal SpO2: 99% 97% 98% 95% Weight: Height: No data found. lan of Care - Luz Farris Dietary Tech-Clinical - 03/28/2019 4:44 PM PDT LIVESTOCK SLAUGHTERER CLINICAL NUTRITION NOTE NUTRITION PROBLEMS: 1. Inadequate oral nutrition intake related to inability to self feed as evidenced by rosemary ent requiring 1:1 feeding in the setting of advanced age INTERVENTIONS: 1. Encourage adequate oral intake 2. Oral nutrition supplements added to meals 3. Will assist patient daily with meal selection Patient is a 73 y.o. female admitted on 03/24/2019 with Osteomyelitis (HCC) [M86.9]. ASSESSMENT: Brief Nutrition History: RN assisting patient with meal at time of visit. Patient not feedi ng self. Patient refusing meals per d/w RN. Added Boost BID per RN request. Patient poor his jorge. Patient not able to order meals, or make desires known. Anthropometrics: Most recent wt: 136 lb (date: 03/24 EST - post-dialysis) Admit wt: 140 lb (Stated 03/24) Ht : 5'8" UBW [~3 mo ago]: Unknown % wt loss from UBW: Unknown BMI: 21 (based on recent wt: 136 lb) Pertinent Weight Changes This Admission: None Nutritional Intake: For your reference, current, active order is: Diet renal; potassium 3 gm K; 90 gm CARB/Meal; Effective Now ? ? % intake of current diet: avg of 1.7% x last 3 meals recorded ? Tolerance to current diet: Poor ? Food allergies / intolerances: NKFA Chewing or swallowing difficulties? None reported, noticed slow chewing with small bites o f food. MONITORING / FOLLOW-UP PLAN: 1. Will continue to monitor nutrition status Luz Cueto NDTR DATE/TIME: 03/28/2019 16:45 rief Op Note - Juan Choi MD - 03/28/2019 3:05 PM PDT Melvin [place] OPERATIVE NOTE [facility] Pt. Name/Age/: Estefani Tilley 73 y.o. 1945 Med. Record Number: [id number] Date of admission: 03/24/2019 Date of Operation/Procedure: 03/28/2019 Preoperative Diagnosis: need for iv access Postoperative Diagnosis: Same Surgeon: Juan Choi MD, PGY-4 Medical Laboratory Technician: None Anesthesia Provider(s): No anesthesia staff entered. Anesthesia Type: Anesthesia type not filed in the log. Procedure(s): TUNNEL PICC LINE PLACEMENT-6fr 22cm BARD Power Line Operative Findings: Same Wound Closure: Other (no skin edges touching Evidence of infection: No infection noted. Estimated Blood Loss: Minimal, less than 100mL IV Fluids: None Blood Transfusion: None Drains: none Specimen (s): * No specimens in log * Implants: * No implants in log * Counts: Instrument, sponge, and needle counts were correct prior to closure and at the con clusion of the case. Complications: None Disposition: The patient was taken to Recovery Room Immediate Post-Operative Condition: Stable Electronically signed by: Juan Choi MD, PGY-4, 03/28/2019, 15:05 edation Documentation - Sudhir Brandon Drive In Theater Attendant - 03/28/2019 2:58 PM PDTTunnelled Power Line placem ent complete. 6fr double lumen BARD Power Line was placed. Catheter trimmed to 22cm total le ngth. Catheter tip is in proper position and ready to use. Secured with an attachment device , tegaderm, biopatch, telfa and steri-strip dressing to site, CDI. lan of Care - Tahmina Graham RN - 03/28/2019 3:32 AM PDTFormatting of this note might be different from the alberto ginal. 8N & 8S Nursing Progress Note Patient Name: Estefani Tilley Room # 836/836-01 ISO: None Item for mission assessment specialist Comments Shift Summary: Include Pain RX BP within ordered parameters? Stroke pt?:Depression screen Day 2 Admitted 03/24/19 with back pain. A/O X4. Up with SBA. Fi stula to right arm. Skin tear to right elbow. PIV left forearm, saline locked. Slept well th roughout the night. PRN Percocet for pain. Neuro A/O X4 NIH Stroke Scale Total Score Tele (Afib? On anticoag? If no call MD) Yes: ? What is the rhythm: Diet - Note feed assist or special needs Active Orders Diet Diet renal; potassium 3 gm K; 75 gm CARB/Meal; Effective Now How patient takes medications: Whole with thins Mobility/Braces/HRF Interventions: Last bowel movement: Bladder Management: PVR/Strcath/incont Stool Occurrence: 1(pt reported) (03/27/19 184) La st Bowel Movement: 03/21/19(Patient estimatied date) (03/27/192324) Restraints TeleSitter or Bedside Sitter Discharge plan Patient/Family Goals [place]. C-SSRS Since you were last asked, have [...] intention has depression wishful of Monitoring Requirements [facility] Suicide Policy [facility] Suicide Risk/Telesitter Screening Utilizing this rating scale, the suicidal patient will be monitored in the following manner : ? Score <=2 "yes" responses, Patient does not require observation ? Score =3 "yes" responses, Patient can be observed using a Telesitter ? Score >=4 "yes" responses, Patient requires in person continual visual observation Appropriate interventions were placed based on the above criteria and room preparation will be completed for safety based on suicide observation protocols. lan of Care - Maria A Soto RN - 03/27/2019 10:33 PM PDT4 hour shift note- Pt admitted for possible osteomyelitis. Pt is dialysis patient, fistula in R arm. Plan to place power tillman for IV abx. Complains of intermittent nausea. Given ice chips. VSS. Pleasant and cooperative with cares. BP goal <180. Pt often needing multiple promps but cooperative and oriented. Electronically signed by: Maria A Soto RN 03/27/2019 22:35 lan of Care - Emmanuel Khanna RN - 03/27/2019 6:06 PM PDTFormatting of this note might be different from jerald more. 8N & 8S Nursing Progress Note Patient Name: Estefani Tilley Room # 836/836-01 ISO: None Item for mission assessment specialist Comments Shift Summary: Include Pain RX BP within ordered parameters? Stroke pt?:Depression screen Day 2 Took over patient care from [id number]. BP peaked and PRN was administered with no effect. Physician was notified and hydralazine was prescribed but held for BP w/in parameters. Neuro Pt. Showing confusion and requires redirection to stay on topic. Pt. Is A&Ox4 with m ultiple prompts. No other changes in sensation or strength. NIH Stroke Scale Total Score Tele (Afib? On anticoag? If no call MD) Yes: ? What is the rhythm: Diet - Note feed assist or special needs Active Orders Diet Diet renal; potassium 3 gm K; 75 gm CARB/Meal; Effective Now How patient takes medications: Patient swallows oral meds without difficulty. Mobility/Braces/HRF Interventions: Patient is a standby assist with mobility. Last bowel movement: Bladder Management: PVR/Strcath/incont Last Bowel Movement: 03/21/19(Pt. estimates 5 day s ago. Reported it's baseline) (03/26/192031) Restraints TeleSitter or Bedside Sitter Discharge plan Patient/Family Goals Ongoing. C-SSRS Since you were last asked, have [...] intention has depression wishful of Monitoring Requirements [facility] Suicide Policy [facility] Suicide Risk/Telesitter Screening Utilizing this rating scale, the suicidal patient will be monitored in the following manner : ? Score <=2 "yes" responses, Patient does not require observation ? Score =3 "yes" responses, Patient can be observed using a Telesitter ? Score >=4 "yes" responses, Patient requires in person continual visual observation Appropriate interventions were placed based on the above criteria and room preparation will be completed for safety based on suicide observation protocols. lan of Care - Dea Wiggins RN - 03/27/2019 2:59 PM PDTFormatting of this note might be different from the or iginal. 8N & 8S Nursing Progress Note Patient Name: Estefani Jimenez [place] Room # 836/836-01 ISO: None Item for mission assessment specialist Comments Shift Summary: Include Pain RX BP within ordered parameters? Stroke pt?:Depression screen Day 2 Patient here for possible osteomyelitis of T11-T12. A/O X4. Cooperative with care today. Had dialysis from 2046-2051. AM medications held and given when pt returned to the unit. When pt returned to the floor, pt was crying and yelling due to cramping of the left knee. Percocet 2 tabs given. Pain resolved. Otherwise, vital signs a re stable and pt. Ambulating in the room with SBA. NIH Stroke Scale Total Score Tele (Afib? On anticoag? If no call MD) Yes: [] What is the rhythm: Diet - Note feed assist or special needs Active Orders Diet Diet renal; potassium 3 gm K; 75 gm CARB/Meal; Effective Now How patient takes medications: Whole with thins Mobility/Braces/HRF Interventions: Last bowel movement: Bladder Management: PVR/Strcath/incont Last Bowel Movement: 03/21/19(Pt. estimates 5 day s ago. Reported it's baseline) (03/26/192031) Restraints TeleSitter or Bedside Sitter Discharge plan Patient/Family Goals Pending C-SSRS Since you were last asked, have [...] intention has depression wishful of Monitoring Requirements [facility] Suicide Policy [facility] Suicide Risk/Telesitter Screening Utilizing this [...] for safety based on suicide observation protocols. lan of Darlin Call LICSW - 03/27/2019 2:13 PM PDTSW: [place]: lives out of town Plan: SNF [facility] Radha Haddad RN - 03/27/2019 1:17 AM PDT 8N & 8S Nursing Progress Note Patient Name: Estefani Tilley Room # 836/836-01 ISO: None Item for mission assessment specialist Comments Shift Summary: Include Pain RX BP within ordered parameters? Stroke pt?:Depression screen Day 2 Waiting on thoracic aspiration cultures taken 03/24 to ru le out osteomyelitis. Hx stroke, DMT2, ESRD, HTN & anemia Independent. R. Arm fistula - HD MTW Percocet for pain - but tends to make patient nauseous PRN Labetalol if systolic >170 Withdrawn & flat but more cooperative tonight. Neuro No overt deficits NIH Stroke Scale Total Score Tele (Afib? On anticoag? If no call MD) Yes: ? What is the rhythm: Diet - Note feed assist or special needs Active Orders Diet Diet renal; potassium 3 gm K; 75 gm CARB/Meal; Effective Now How patient takes medications: Mobility/Braces/HRF Interventions: Last bowel movement: Bladder Management: PVR/Strcath/incont Last Bowel Movement: 03/21/19(Pt. estimates 5 day s ago. Reported it's baseline) (03/26/192031) Restraints TeleSitter or Bedside Sitter Discharge plan Patient/Family Goals C-SSRS Since you were last asked, have [...] intention has depression wishful of Monitoring Requirements [facility] Suicide Policy [facility] Suicide Risk/Telesitter Screening Utilizing this rating scale, the suicidal patient will be monitored in the following manner : ? Score <=2 "yes" responses, Patient does not require observation ? Score =3 "yes" responses, Patient can be observed using a Telesitter ? Score >=4 "yes" responses, Patient requires in person continual visual observation Appropriate interventions were placed based on the above criteria and room preparation will be completed for safety based on suicide observation protocols. lan of Care - Johanna Rose RN - 03/26/2019 6:41 PM PDTAssumed care of pt from [id number]. Pt here wi th thoracic discitis, possible T11-12 osteomyelitis. Pt is alert, oriented, and ambulatory i n room. Calls appropriately. Has c/o lower back pain, taking Percocet Q4HP. Pt states pain m edication causes nausea, no intervention requested at this time, pt requested ice water and soda. On dialysis, MTW. RUE fistula, bruit audible, thrill strong. Has LA PIV, SL. Had thoracic spine aspiration 03/24. Site dry and intact. Pt is on room air, denies SOB. Has PRN labetolol for SBP >170, parameters not met this shift. Pt is afebrile, VSS. Expected to have dialysis tomorrow. lan of Care - Dea Wiggins RN - 03/26/2019 2:5 0 PM PDT 8N & 8S Nursing Progress Note Patient Name: Estefani Tilley Room # 836/836-01 ISO: None Item for mission assessment specialist Comments Shift Summary: Include Pain RX BP within ordered parameters? Stroke pt?:Depression screen Day 2 Assumed care from [id number]. 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 A/ox4. Pt uncooperative and argumentative with care. Hx of stroke, d iabetes, and ESRD. Pt. Receiving dialysis. Right arm fistula. Back pain managed with percoce t q4. Blood pressure elevated this morning. Labetalol PRN given per previous RN report. Ot wise, vital signs stable. Neuro Intact NIH Stroke Scale Total Score Tele (Afib? On anticoag? If no call MD) Yes: [] What is the rhythm: S/R Diet - Note feed assist or special needs Active Orders Diet Diet renal; potassium 3 gm K; 75 gm CARB/Meal; Effective Now How patient takes medications: Whole with thins Mobility/Braces/HRF Interventions: Last bowel movement: Bladder Management: PVR/Strcath/incont Last Bowel Movement: (unable to recall) (03/26/19 0843) Restraints TeleSitter or Bedside Sitter Discharge plan Patient/Family Goals Pending C-SSRS Since you were last asked, have [...] intention has depression wishful of Monitoring Requirements [facility] Suicide Policy [facility] Suicide Risk/Telesitter Screening Utilizing this [...] for safety based on suicide observation protocols. lan of Care - Kitchen , Radha Casper RN - 03/26/2019 5:02 AM PDT 8N & 8S Nursing Progress Note Patient Name: Estefani Tilley Room # 836/836-01 ISO: None Item for mission assessment specialist Comments Shift Summary: Include Pain RX BP within ordered parameters? Stroke pt?:Depression screen Day 2 Waiting on bone biopsy results taken 03/24 to rule out os teomyelitis. Hx stroke, DMT2, ESRD, HTN & anemia Independent. R. Arm fistula - HD MTW Percocet for pain - but tends to make patient nauseaus Qshift suicide screening. PRN Labetalol if systolic >170 Pt. Has been noncompliant, argumentative, and verbally abusive to staff this shift. Refusin g to let staff talk by talking over them. Upset over nurse trying to do assessment. Refused labs from the car barn laborer until this nurse came and educated patient - caused patient to get mo re upset and abusive, but allowed lab to draw blood although repeatedly saying "I f---ing cortés te you." Neuro No overt deficits. NIH Stroke Scale Total Score Tele (Afib? On anticoag? If no call MD) Yes: ? What is the rhythm: Diet - Note feed assist or special needs Active Orders Diet Diet renal; potassium 3 gm K; 75 gm CARB/Meal; Effective Now How patient takes medications: Mobility/Braces/HRF Interventions: Last bowel movement: Bladder Management: PVR/Strcath/incont Last Bowel Movement: (When asked pt became angry and verbally abusive.) (03/25/192024) Restraints TeleSitter or Bedside Sitter Discharge plan Patient/Family Goals C-SSRS Since you were last asked, have [...] intention has depression wishful of Monitoring Requirements [facility] Suicide Policy [facility] Suicide Risk/Telesitter Screening Utilizing this rating scale, the suicidal patient will be monitored in the following manner : ? Score <=2 "yes" responses, Patient does not require observation ? Score =3 "yes" responses, Patient can be observed using a Telesitter ? Score >=4 "yes" responses, Patient requires in person continual visual observation Appropriate interventions were placed based on the above criteria and room preparation will be completed for safety based on suicide observation protocols. lan of Care - Lakesha Wills RN - 03/25/2019 4:30 PM PDT 8N & 8S Nursing Progress Note Patient Name: Estefani Tilley Room # 836/836-01 ISO: None Item for mission assessment specialist Comments Shift Summary: Include Pain RX BP within ordered parameters? Stroke pt?:Depression screen Day 2 Pending bx results for r/o osteomyelitis on iv abx possi ble for need for 6 weeks may need central line access not okay for PICC per nephrology will probably need a tillman/IJ line insertion if needed. Pain to back managed with percocet occa sional nausea managed with zofran. CSSRS scoring q shift patient is not having active suicidal ideation but voices that she wi shes she was and similar thoughts, also cries intermittenly d/t frustrations with care. Has been compliant with cares this shift Was requesting diet changed that was discussed with nephrology and diet was not changed, faisal lu was fine with keeping it the way it is after education for purpose. Hx: CVA, DM2, ESRD HD dependent MWF and right upper arm fistula PTB+, anemia, HTN Neuro A/o cam- strength intact NIH Stroke Scale Total Score Tele (Afib? On anticoag? If no call MD) Yes: ? What is the rhythm: Diet - Note feed assist or special needs Active Orders Diet Diet renal; potassium 3 gm K; 75 gm CARB/Meal; Effective Now How patient takes medications: Whole with liquid of choice Mobility/Braces/HRF Interventions: independent Last bowel movement: Bladder Management: PVR/Strcath/incont Last Bowel Movement: 03/23/19 (03/24/192014) Restraints TeleSitter or Bedside Sitter Discharge plan Patient/Family Goals Home when stable if can dc with iv abx otherwise inpatient for duratio n C-SSRS Since you were last asked, have [...] intention has depression wishful of Monitoring Requirements [facility] Suicide Policy [facility] Suicide Risk/Telesitter Screening Utilizing this rating scale, the suicidal patient will be monitored in the following manner : ? Score <=2 "yes" responses, Patient does not require observation ? Score =3 "yes" responses, Patient can be observed using a Telesitter ? Score >=4 "yes" responses, Patient requires in person continual visual observation Appropriate interventions were placed based on the above criteria and room preparation will be completed for safety based on suicide observation protocols. lan of Care - Met tleashwini, Nan Jimenez CABLE HOOKER - 03/25/2019 7:58 AM PDTReferral for housing concernsElectronically sig javi by JENNIFER Xavier at 03/25/2019 7:59 AM PDTPlan of Care - Kitrachel, Radha Casper RN - 03/25/2019 3:03 AM PDT 8N & 8S Nursing Progress Note Patient Name: Estefani Tilley Room # 836/836-01 ISO: None Item for mission assessment specialist Comments Shift Summary: Include Pain RX BP within ordered parameters? Stroke pt?:Depression screen Day 2 Waiting on bone biopsy results taken 03/24 to rule out os teomyelitis. Hx stroke, DMT2, ESRD, HTN & anemia SBA. R. Arm fistula - HD MTW Percocet for pain - but tends to make patient nauseaus Qshift suicide screening. Pt. Has been Noncompliant w/ diet & argumentative this shift. Neuro BLE weakness. NIH Stroke Scale Total Score Tele (Afib? On anticoag? If no call MD) Yes: ? What is the rhythm: Diet - Note feed assist or special needs Active Orders Diet Diet renal; 75 gm CARB/Meal; Effective Now How patient takes medications: Whole w/ thins Mobility/Braces/HRF Interventions: Last bowel movement: Bladder Management: PVR/Strcath/incont Last Bowel Movement: 03/23/19 (03/24/192014) Restraints TeleSitter or Bedside Sitter Discharge plan Patient/Family Goals C-SSRS Since you were last asked, have [...] end your life ?: No Describe: : Pt. has no intention of hurting herself but states sometimes she wishes she was n't alive. Monitoring Requirements [facility] Suicide Policy [facility] Suicide Risk/Telesitter Screening Utilizing this rating scale, the suicidal patient will be monitored in the following manner : ? Score <=2 "yes" responses, Patient does not require observation ? Score =3 "yes" responses, Patient can be observed using a Telesitter ? Score >=4 "yes" responses, Patient requires in person continual visual observation Appropriate interventions were placed based on the above criteria and room preparation will be completed for safety based on suicide observation protocols. lan of Care - Dalia Roman RN - 03/24/2019 4:24 PM PDT 8N & 8S Nursing Progress Note Patient Name: Estefani Tilley Room # 836/836-01 ISO: None Item for mission assessment specialist Comments Shift Summary: Include Pain RX BP within ordered parameters? Stroke pt?:Depression screen Day [address] guided bx of T11, T12. HD this afternoon and [facility]. R arm fistula wnl. IV ABX. Pain management with Percocet q 4 hrs. Elevated BP. Labetalol PRN. Scored positive on depression/suicide screening. MD aware. Social work c onsult ordered. Neuro AOx4, no numbness, no tingling NIH Stroke Scale Total Score Tele (Afib? On anticoag? If no call MD) Yes: ? What is the rhythm: Diet - Note feed assist or special needs Active Orders Diet Diet NPO; except ice chips and sips with meds; Effective Midnight Diet renal; 75 gm CARB/Meal; Effective Now How patient takes medications: With water Mobility/Braces/HRF Interventions: SBA Last bowel movement: Bladder Management: PVR/Strcath/incont Last Bowel Movement: 03/23/19("small pellets") (0 03/24/19 0100) Restraints TeleSitter or Bedside Sitter Discharge plan Patient/Family Goals C-SSRS Monitoring Requirements PHS Suicide Policy [facility] Suicide Risk/Telesitter Screening Utilizing this rating scale, the suicidal patient will be monitored in the following manner : ? Score <=2 "yes" responses, Patient does not require observation ? Score =3 "yes" responses, Patient can be observed using a Telesitter ? Score >=4 "yes" responses, Patient requires in person continual visual observation Appropriate interventions were placed based on the above criteria and room preparation will be completed for safety based on suicide observation protocols. lan of Gladys Fofana MSW - 03/24/2019 2:57 PM PDTReferral for homeless/housing concerns.Electronicall y signed by JENNIFER Morgan at 03/24/2019 2:58 PM PDTPlan of Michelle Worthington - 03/24/2019 8:44 AM PDTDischarge Planning: Received a telephone call from [facility] RN @ [facility] [phone]. Informed Emili that this patient was transferred to [facility]. Electronically signed by: Michelle Jackson 03/24/2019 8:45 lan of Ginger Poe RN - 03/24/2019 5:28 AM PDTFormatting of this note might be different from the o riginal. 8N & 8S Nursing Progress Note Patient Name: Estefani Tilley Room # 836/836-01 ISO: None Item for mission assessment specialist Comments Shift Summary: Include Pain RX BP within ordered parameters? Stroke pt?:Depression screen Day 2 Pt admitted from hospital in [place] via [facility] at 0100. S/p c/o severe back pain with suggestion of osteomyelitis via MRI. Plans to perform biopsy to confirm on 03/24. Pt AOx4, Presently dialysis pt on M,W,F with fistula in R arm. C efepime given at previous hospital, with vanco given [facility]. Pt very agitated at first wit h admit questions and medication reconciliation, but became more agreeable with food and terry n medication. RN allowed pt to sleep rest of shift after correcting b/p at 0340. Hx of nonco mpliance, HTN, T2DM, hypothyroidism, hyperlipidemia, stroke and anemia. Neuro Pt AOx4, TARANGO /. C/o pain in back at 04/22. NIH Stroke Scale Total Score Not indicated Tele (Afib? On anticoag? If no call MD) Yes: [] What is the rhythm: Not indicated Diet - Note feed assist or special needs Active Orders Diet Diet NPO; except ice chips and sips with meds; Effective Midnight Diet renal; 75 gm CARB/Meal; Effective Now Ind with meals How patient takes medications: Whole with thins Mobility/Braces/HRF Interventions: Up with SBA Last bowel movement: Bladder Management: PVR/Strcath/incont Last Bowel Movement: 03/23/19("small pellets") (0 03/24/19 0100) Pt voids very little - dialysis M,W,F Continent of stool Restraints Not indicated TeleSitter or Bedside Sitter Not indicated Discharge plan Patient/Family Goals Pending C-SSRS Monitoring Requirements PHS Suicide Policy [facility] Suicide Risk/Telesitter Screening Utilizing this [...] for safety based on suicide observation protocols. documented in this encounter Plan of Treatment + [...] | [facility] | | | POC | [facility] [address], | | SACRED | | | | [place] [address] | | HEART | | | |Performed by [facility] [address], [place] [address] | | MEDICAL | | | | [...] + + | [facility] | [address] | [place] [address] | | | [facility] | | | | | LABORATORY [...] | [facility] | | | POC | [facility] [address], | | SACRED | | | | [place] [address] | | HEART | | | |Performed by [facility] [address], [place] [address] | | MEDICAL | | | | [...] + + | [facility] | [address] | [place] [address] | | | [facility] | | | | | LABORATORY [...] | | LABORATORY | | | | [facility] [address], | | [place] | | | | [place] [address] | | | | + + + + + + + + | Specimen | + + | Blood specimen | | (specimen) | + + + + + + + | Performing | Address | City/State/Zipcode | Phone Number | | Organization | | | | + + + + + | [facility] | [address] | [place] [address] | | | [facility] | | | | | [place] | | | | + + + + + CBC with Differential (03/31/2019 4:12 AM PDT) + + + +------- ------+ + | Component | Value | Ref Range | Perfor med | Pathologist | | | | | At | Signature | + + + +------- ------+ + | White Blood | 4.60 | 3.80 - 11.00 | [facility] | | | Cells | | K/uL | SACRED | | | | | | HEART | | | | | | MEDICA L | | | | | | CENTER | | | | | | LABORA TORY | | | | | | [place] | | + + + +------- ------+ + | Red Blood | 2.97 (L) | 3.70 - 5.10 | [facility] | | | Cells | | M/uL | SACRED | | [...] ENCE | | | Immature | by [facility] [address], | K/uL | SACRED | | | Granulocyte | [place] [address] | | HEART | | | s |Performed by [facility] [address], [place] [address] | | MEDICA L | | | [...] + + | [facility] | [address] | [place] [address] | | | [facility] | | | | | LABORATORY [...] by | | | | | | [facility] [address], | | | | | | [place] [address] | | | | + + + + + + + + | Specimen | + + | Blood specimen | | (specimen) | + + + + + + + | Performing | Address | City/State/Zipcode | Phone Number | | Organization | | | | + + + + + | [facility] | [address] | [place] [address] | | | [facility] | | | | | YANY [...] | | | POC | Performed by [facility] [address] | | SACREVANS | | | | [address] [place] | | HEART | | | | [address] | | MEDICAL | | | | [...] + + | [facility] | [address] | [place] [address] | | | [facility] | [...] | | | POC | Performed by [facility] [address] | | SACRED | | | | [address] [place] [place], [place] | | HEART | | | | [address] | | MEDICAL | | | | [...] [address] | [place] [address] | | | [facility] | | | | | YNAY DENNISON | | | | + + [...] | | | POC | Performed by [facility] [address] | | SACRED | | | | [address], [place] | | HEART | | | | [address] | | MEDICAL | | | | [...] [address] | [place] [address] | | | [facility]ENTER | [...] | | | POC | Performed by [facility] [address] | | SACRED | | | | [address] [place], [place] | | HEART | | | | [address] | | MEDICAL | | | | [...] + + | [facility] | [address] | [place] [address] | | | [facility] | | | | | YANY [...] PROVID[facility] NCE | | | | by [facility] [address], | | SACRED | | | | [place] [address] | | HEART | | | |Performed by [facility] [address], [place] [address] | | MEDICAL | | | | [...] + + | [facility] | [address] | [place], [place] | | | [facility] | | | | | LABORATORY [...] LUIS CE | | | | by [facility] [address], | | SACRED | | | | [place] | | HEART | | | |Performed by [facility] [address], [place] | | MEDICAL | | | [...] + + | [facility] | [address] | [place] [address] | | | [facility] | | | | | LABORATORY [...] | | LABORATORY | | | | [facility] [address], | | [place] | | | | [place] [address] | | | | + + + + + + + + | Specimen | + + | Blood specimen | | (specimen) | + + + + + + + | Performing | Address | City/State/Zipcode | Phone Number | | Organization | | | | + + + + + | [facility] | [address] | [place] [address] | | | [facility] | | | | | LABORATORY JESI | | | | + + + + + CBC with Manual Differential (03/30/2019 5:27 AM PDT) + + + +------- ------+ + | Component | Value | Ref Range | Perfor med | Pathologist | | | | | At | Signature | + + + +------- ------+ + | White Blood | 4.43 | 3.80 - 11.00 | [facility] | | | Cells | | K/uL | SACRED | | | | | | HEART | | | | | | MEDICA L | | | | | | CENTER | | | | | | SHELLYA PHYLLIS | | | | | | CERNER | | + + + +------- ------+ + | Red Blood | 3.12 (L) | 3.70 - 5.10 | [facility] | | | Cells | | M/uL | SACRED | | [...] + + +------- ------+ + | Total Cells | 100Comment: Performed | | [facility] | | | Counted | by [facility] [address], | | SACRED | | | | [place] | | HEART | | | |Performed by [facility] [address], [place] | | MEDICA L | | | [...] + + | [facility] | [address] | [place] | | | HEART [facility] | | | | | LABORATORY [...] | | | POC | Performed by [facility] [address] | | SACRED | | | | [address] [place] | | HEART | | | | [address] | | MEDICAL | | | | [...] + + | [facility] | [address] | [place] [address] | | | [facility] | | | | | LABORATORY [...] | [facility] | | | POC | [facility] [address], | | SACRED | | | | [place] [address] | | HEART | | | |Performed by [facility] [address], [place] [address] | | MEDICAL | | | | [...] + | [facility] | [address] | [place] [address] | | | [facility] | | | | | LABORATORY [...] | | | POC | Performed by [facility] [address] | | SACRED | | | | [address], [place] | | HEART | | | | [address] | | MEDICAL | | | | [...] + + | [facility] | [address] | [place] [address] | | | [facility] | | | | | YANY [...] | [facility] | | | POC | [facility] [address], | | SACRED | | | | [place] [address] | | HEART | | | |Performed by [facility] [address], [place] [address] | | MEDICAL | | | | [...] + | [facility] | [address] | [place] [address] | | | [facility] | | | | | LABORATORY [...] by | | | | | | [facility] [address], | | | | | | [place] [address] | | | | + + + + + + + + | Specimen | + + | Blood specimen | | (specimen) | + + + + + + + | Performing | Address | City/State/Zipcode | Phone Number | | Organization | | | | + + + + + | [facility] | [address] | [place] [address] | | | [facility] | | | | | LABORATORY JESI | | | | + + + + + CBC with Manual Differential (03/29/2019 5:19 AM PDT) + + + +------- ------+ + | Component | Value | Ref Range | Perfor med | Pathologist | | | | | At | Signature | + + + +------- ------+ + | White Blood | 4.55 | 3.80 - 11.00 | [facility] | | | Cells | | K/uL | SACRED | | | | | | HEART | | | | | | MEDICA L | | | | | | CENTER | | | | | | DENNY FERGUSON | | | | | | [place]ER | | + + + +------- ------+ + | Red Blood | 3.12 (L) | 3.70 - 5.10 | [facility] | | | Cells | | M/uL | SACRED | | [...] + + +------- ------+ + | Total Cells | 100Comment: Performed | | [facility] | | | Counted | by [facility] [address], | | SACRED | | | | [place] [address] | | HEART | | | |Performed by [facility] [address], [place] [address] | | MEDICA L | | | [...] + | [facility] | [address] | [place] | | | HE[facility]ICAL CENTER [...] LUIS CE | | | | by [facility] [address], | | SACRED | | | | [place] [address] | | HEART | | | |Performed by [facility] [address], [place] [address] | | MEDICAL | | | | | | CENTER | | | | | | LABORATO RY | | | | | | [place] | | + + + +--------- ----+ + + + | Specimen | + + | Blood specimen | | (specimen) | + + + + + + + | Performing | Address | City/State/Zipcode | Phone Number | | Organization | | | | + + + + + | [facility] | [address] | [place] [address] | | | [facility] | | | | | YANY [...] | | LABORATORY | | | | [facility] [address], | | [place] | | | | [place] [address] | | | | + + + + + + + + | Specimen | + + | Blood specimen | | (specimen) | + + + + + + + | Performing | Address | City/State/Zipcode | Phone Number | | Organization | | | | + + + + + | [facility] | [address] | [place] [address] | | | [facility] | | | | | LABORATORY [...] | | | POC | Performed by [facility] [address] | | SACRED | | | | [address] [place] | | HEART | | | | [address] | | MEDICAL | | | | [...] + + | [facility] | [address] | [place] [address] | | | [facility] | | | | | LABORATORY [...] | | | POC | Performed by [facility] [address] | | SACRED | [...] [address] | [place] [address] | | | HEART [facility]ICAL CENTER | [...] | [facility] | | | POC | [facility] [address], | | SACRED | | | | [place] [address] | | HEART | | | |Performed by [facility] [address], [place] [address] | | MEDICAL | | | | [...] + | [facility] ADora [facility] | [address] | [place] [address] | | | [facility] | | | | | LABORATORY [...] | | LABORATORY | | | | [facility] [address], | | [place] | | | | [place] [address] | | | | + + + + + + + + | Specimen | + + | Blood specimen | | (specimen) | + + + + + + + | Performing | Address | City/State/[facility] | Phone Number | | Organization | | | | + + + + + | [facility] | [address] | [place] [address] | | | [facility] | | | | | LABORATORY CERNER | | | | + + + + + CBC no Differential (03/28/2019 4:58 AM PDT) + + + +------- ------+ + | Component | Value | Ref Range | Perfor med | Pathologist | | | | | At | Signature | + + + +------- ------+ + | White Blood | 4.25 | 3.80 - 11.00 | [facility] | | | Cells | | K/uL | SACRED | | | | | | HEART | | | | | | MEDICA L | | | | | | CENTER | | | | | | LABORA TORY | | | | | | [place] | | + + + +------- ------+ + | Red Blood | 3.07 (L) | 3.70 - 5.10 | [facility] | | | Cells | | M/uL | SACRED | | | | | | HEART | | | | | | MEDICA L | | | | | | CENTER | | | | | | LABORA TORY | | | | | | [place] | | + + + +------- ------+ + | Hemoglobin | 9.9 (L) | 11.3 - 15.5 | [facility] [...] + +------- ------+ + | Hct | 30.8 (L) | [...] + +------- ------+ + | MCV | 100.3 (H) | [...] + +------- ------+ + | MCH | 32.2 | 27.0 - 34.0 pg | [facility] [...] + +------- ------+ + | RDW-CV | 14.9 | 11.0 - 15.5 % | [facility] | | | | | | SACRED | | | | | | HEART | | | | | | MEDICA L | | | | | | CENTER | | | | | | LABORA TORY | | | | | | [place] | | + + + +------- ------+ + | Platelet | 171 | 150 - 400 K/uL | [facility] [...] + +------- ------+ + | MPV | 10.1Comment: Performed | 9.3 - 12.7 fL | [facility] | | | | by [facility] [address], | | SACRED | | | | [place] | | HEART | | | |Performed by [facility] [address], [place] | | MEDICA L | | | [...] SACRED | [address] | [place], [place] | | | [facility] | | | | | LABORATORY [...] | | | POC | Performed by [facility] [address] | | SACRED | | | | [address] [place] | | HEART | | | | [address] | | MEDICAL | | | | [...] + | [facility] | [address] | [place] [address] | | | [facility] | | | | | LABORATORY [...] | | | POC | Performed by [facility] [address] | | SACRED | | | | [address] [place], [place] | | HEART | | | | [address] | | MEDICAL | | | | [...] [address] | [place] [address] | | | [facility] | | | | | [...] | [facility] | | | POC | [facility] [address], | | SACRED | | | | [place] [address] | | HEART | | | |Performed by [facility] [address], [place] [address] | | MEDICAL | | | | [...] + + | JIMRENUKA LIZ | [address] | [place] [address] | | | [facility] | | | | | YANY [...] | [facility] | | | POC | [facility] [address], | | SACRED | | | | [place] [address] | | HEART | | | |Performed by [facility] [address], [place] [address] | | MEDICAL | | | | [...] + + | [facility] | [address] | [place] [address] | | | [facility] | | | | | LABORATORY [...] by | | | | | | [facility] [address], | | | | | | [place] [address] | | | | + + + + + + + + | Specimen | + + | Blood specimen | | (specimen) | + + + + + + + | Performing | Address | City/State/Zipcode | Phone Number | | Organization | | | | + + + + + | [facility] | [address] | [place] [address] | | | [facility] | | | | | LABORATORY [...] | | | POC | Performed by [facility] [address] | | SACRED | | | | [address], [place] | | HEART | | | | [address] | | MEDICAL | | | | [...] + | JIMJOSE ADora LIZ | [address] | [place] [address] | | | [facility] | | | | | LABORATORY [...] | | | POC | Performed by [facility] [address] | | SACRED | | | | [address] [place] | | HEART | | | | [address] | | MEDICAL | | | | [...] + + | [facility] | [address] | [place] [address] | | | [facility] | | | | | LABORATORY [...] | | | POC | Performed by [facility] [address] | | SACRED | | | | [place] | | HEART | | | | [address] | | MEDICAL | | | | [...] | JIMJOSE ADora AGUSTO | [address] | [place] [address] | | | [facility] | | | | | YANY [...] [facility] | | | | Performed by [facility] [address] | | SACRED | | | | [address] [place] | | HEART | | | | [address] | | MEDICAL | | | | [...] [address] | [place] [address] | | | [facility] | | | | | LABORATORY [...] | | | POC | Performed by [facility] [address] | | SACREVANS | | | | [address] [place], [place] | | HEART | | | | [address] | | MEDICAL | | | | [...] + + | [facility] | [address] | [place] [address] | | | [facility] | | | | | LABORATORY [...] by | | | | | | [facility] [address], | | | | | | [place] [address] | | | | + + + + + + + + | Specimen | + + | Blood specimen | | (specimen) | + + + + + + + | Performing | Address | City/State/Zipcode | Phone Number | | Organization | | | | + + + + + | [facility] | [address] | [place] [address] | | | [facility] | | | | | LABORATORY [...] | | LABORATORY | | | | [facility] [address], | | [place] | | | | [place] [address] | | | | + + + + + + + + | Specimen | + + | Blood specimen | | (specimen) | + + + + + + + | Performing | Address | City/State/Zipcode | Phone Number | | Organization | | | | + + + + + | [facility] | [address] | [place] [address] | | | [facility] | | | | | [place] | | | | + + + + + CBC no Differential (03/26/2019 4:11 AM PDT) + + + +------- ------+ + | Component | Value | Ref Range | Perfor med | Pathologist | | | | | At | Signature | + + + +------- ------+ + | White Blood | 4.57 | 3.80 - 11.00 | [facility] | | | Cells | | K/uL | SACRED | | | | | | HEART | | | | | | MEDICA L | | | | | | CENTER | | | | | | LABORA TORY | | | | | | [place] | | + + + +------- ------+ + | Red Blood | 3.12 (L) | 3.70 - 5.10 | [facility] | | | Cells | | M/uL | SACRED | | [...] + +------- ------+ + | Hct | 32.1 (L) | [...] + +------- ------+ + | MCV | 102.9 (H) | [...] + +------- ------+ + | MCHC | 31.8 (L) | 32.0 - 35.5 | [facility] | | | | | g/dL | SACRED | | | | | | HEART | | | | | | MEDICA L | | | | | | CENTER | | | | | | LABORA TORY | | | | | | [place] | | + + + +------- ------+ + | RDW-CV | 15.1 | 11.0 - 15.5 % | [facility] | | | | | | SACRED | | | | | | HEART | | | | | | MEDICA L | | | | | | CENTER | | | | | | LABORA TORY | | | | | | [place] | | + + + +------- ------+ + | Platelet | 179 | 150 - 400 K/uL | [facility] [...] + +------- ------+ + | MPV | 10.2Comment: Performed | 9.3 - 12.7 fL | [facility] | | | | by [facility] [address], | | SACRED | | | | [place] [address] | | HEART | | | |Performed by [facility] [address], [place] [address] | | MEDICA L | | | [...] + + | [facility] | [address] | [place] [address] | | | [facility] | | | | | YANY [...] FOLATE | 21.3 | >=5.8 ng/mL | [facility] | | | | Comment: | [...] Performed | 180 - 914 pg/mL | [facility] | | | B-12 | by [facility] [address], | | SACRED | | | | [place] [address] | | HEART | | | |Performed by [facility] [address], [place] [address] | | MEDICAL | | | | [...] + + | [facility] | [address] | [place] [address] | | | HEART [facility] | | | | | LABORATORY [...] by | | | | | | [facility] [address], | | | | | | [place] [address] | | | | + + + + + + + + | Specimen | + + | Blood specimen | | (specimen) | + + + + + + + | Performing | Address | City/State/Zipcode | Phone Number | | Organization | | | | + + + + + | JIMJOSE ADora GOFFEVANS | [address] | [place] [address] | | | [facility] | | | | | LABORATORY [...] | | | POC | Performed by [facility] [address] | | SACRED | | | | [address] [place] | | HEART | | | | [address] | | MEDICAL | | | | [...] + + | [facility] | [address] | [place] [address] | | | [facility] | | | | | LABORATORY [...] | | | POC | Performed by [facility] [address] | | SACRED | | | | [address], [place] | | HEART | | | | [address] | | MEDICAL | | | | [...] + | [facility] | [address] | [place] [address] | | | [facility] | | | | | LABORATORY [...] | | | POC | Performed by [facility] [address] | | SACRED | | | | [address] [place], [place] | | HEART | | | | [address] | | MEDICAL | | | | [...] + + + + + | [facility] | [address] | [place] [address] | | | [facility] | | | | | LABORATORY JESI | | | | + + + + + CBC no Differential (03/25/2019 9:18 AM PDT) + + + +------- ------+ + | Component | Value | Ref Range | Perfor med | Pathologist | | | | | At | Signature | + + + +------- ------+ + | White Blood | 5.34 | 3.80 - 11.00 | [facility] | | | Cells | | K/uL | [facility] | | | | | | HEART | | | | | | [facility] | | | | | | CENTER | | | | | | [facility] | | | | | | [facility] | | + + + +------- ------+ + | Red Blood | 3.08 (L) | 3.70 - 5.10 | [facility] | | | Cells | | M/uL | [facility] | | [...] + +------- ------+ + | Hct | 31.5 (L) | [...] + +------- ------+ + | MCV | 102.3 (H) | [...] + +------- ------+ + | MCH | 33.1 | 27.0 - 34.0 pg | [facility] | | | | | | [facility] | | | | | | HEART | | | | | | [facility] | | | | | | CENTER | | | | | | LABORA TORY | | | | | | [facility] | | + + + +------- ------+ + | MCHC | 32.4 | 32.0 - 35.5 | [facility] | | | | | g/dL | [facility] | | | | | | HEART | | | | | | [facility] | | | | | | CENTER | | | | | | LABORA TORY | | | | | | [facility] | | + + + +------- ------+ + | RDW-CV | 15.4 | 11.0 - 15.5 % | [facility] | | | | | | [facility] | | | | | | HEART | | | | | | [facility] | | | | | | CENTER | | | | | | LABORA TORY | | | | | | [facility] | | + + + +------- ------+ + | Platelet | 192 | 150 - 400 K/uL | [facility] [...] + +------- ------+ + | MPV | 10.2Comment: Performed | 9.3 - 12.7 fL | [facility] | | | | by [facility] [address], | | SACRED | | | | [place] [address] | | HEART | | | |Performed by [facility] [address], [place] [address] | | MEDICA L | | | [...] + + | B[facility] LIZ | [address] [address] | [place] [id number] | | | [facility] | | | | | LABORATORY [...] | 0.0 - 1.5 mg/dL | LUIS DAVISON | | | | by [facility] [address], | | [place] | | | | [place] | | HEART | | | |Performed by [facility] [address], [place] [address] | | MEDICAL | | | | | | CENTER | | | | | | LABORSADIE RY | | | | | | JESI | | + + + +--------- ----+ + + + | Specimen | + + | Blood specimen | | (specimen) | + + + + + + + | Performing | Address | City/State/Zipcode | Phone Number | | Organization | | | | + + + + + | [facility] | [address] | [place] [address] | | | [facility] | [...] | | LABORATORY | | | | [facility] [address], | | [place] | | | | [place] [address] | | | | + + + + + + + + | Specimen | + + | Blood specimen | | (specimen) | + + + + + + + | Performing | Address | City/State/Zipcode | Phone Number | | Organization | | | | + + + + + | [facility] | [address] | [place] [address] | | | [facility] | | | | | LABORATORY [...] | | | POC | Performed by [facility] [address] | | SACRED | | | | [address] [place], [place] | | HEART | | | | [phone] | | MEDICAL | | | | [...] [address] | [place] [address] | | | [facility] | | | | | YANY [...] | | | POC | Performed by [facility] [address] | | [place] | | | | [place], [place] | | HEART | | | | [phone] | | MEDICAL | | | | [...] + + | [facility] | [address] | [place] [address] | | | [facility] | [...] | SACRED | | | Total | [id number] | | HEART | | | | [address] [place], [place] | | MEDICAL | | | | [phone] | | CENTER | | | | Luaro HOLDEN Ph:[phone] | | LABORATORY | | | | [...] + | [facility] | [address] | [place] [address] | | | [facility] | | | | | YANY [...] | SACRED | | | | by [facility] [address], | | HEART | | | | [place] [address] | | MEDICAL | | | | [...] [address] | [place] [address] | | | [facility] | | | | | LABORATORY [...] | SACRED | | | | by [facility] [address], | | HEART | | | | [place] | | MEDICAL | | | [...] + + | [facility] | [address] | [place] | | | [facility] [...] | MEDICAL | | | | by [facility] [address], | | CENTER | | | | [place], [place] | | LABORATORY | | | |Performed by [facility] [address], [place], [place] | | [place]ERN[place] | | | | [...] + + | [facility] | [address] | [place], [place] | | | HEART [facility] | | | | | LABORATORY [...] | | | POC | Performed by [facility] [address] | | SACRED | | | | [address] [place] | | HEART | | | | [phone] | | MEDICAL | | | | [...] + + | [facility] | [address] | [place] [address] | | | [facility] | | | | | LABORATORY [...] | | | POC | Performed by [facility] [address] | | SACRED | | | | [address], [place] | | HEART | | | | [address] | | MEDICAL | | | | [...] [address] | [place] [address] | | | [facility] | [...] CENTER | | | | 3.5Performed by [facility] [address] | | LABORATORY | | | | [address], [place], [place] | | [place] | | | | [address] | | | | + + + + + + + + | Specimen | + + | Blood specimen | | (specimen) | + + + + + + + | Performing | Address | City/State/Zipcode | Phone Number | | Organization | | | | + + + + + | [facility] | [address] | [place] [address] | | | HEART [facility] | | | | | LABORATORY [place] | | | | + + + + + CBC with Differential (03/24/2019 5:18 AM PDT) + + + + + + | Component | Value | Ref Range | Performed | Pathologist | | | | | At | Signature | + + + + + + | White Blood | 5.46 | 3.80 - 11.00 | [facility] | | | Cells | | K/uL | SACRED | | | | | | HEART | | | | | | MEDICAL | | | | | | CENTER | | | | | | LABORATORY | | | | | | [place] | | + + + + + + | Red Blood | 3.02 (L) | 3.70 - 5.10 | [facility] | | | Cells | | M/uL | SACRED | | [...] | | | Immature | Performed by [facility] [address] | K/uL | SACRED | | | Granulocyte | [address] [place] | | HEART | | | s | [id number] | | MEDICAL | | | | [...] + + | [facility] | [address] | [place] [address] | | | [facility] | | | | | LABORATORY [...] | | LABORATORY | | | | [facility] [address], | | [place] | | | | [place] [address] | | | | + + + + + + + + | Specimen | + + | Blood specimen | | (specimen) | + + + + + + + | Performing | Address | City/State/Zipcode | Phone Number | | Organization | | | | + + + + + | [facility] | [address] | [place] [address] | | | [facility] | | | | | YANY [...] | | | | First dose on [facility] 03/30/19 at 1130 | | AM [...] | | | DAILY, First dose on 03/26/19 | | PM PDT | | | [...] | | | | | modification) on Wed03/28/19 at | | | | | | [...] | | | | | Intravenous, ONCE, Wed03/24/19 at | | AM PDT | [...] scheduled: AC, NPO, Daytime | | | [id number] Use NIGHT DOSE for | | | doses scheduled: HS, 3AM, | | | Nighttime [id number] If the BG is | | | [...] 2:43 | | | | | Starting Wed03/24/19 at 1413 | | PM PDT | [...] | | | | PRN, Pain, Starting Wed03/31/19 | | AM PDT | | | [...] | | | | | | | [place] 10/325 if ordered., | | | | [...] | | | | 60 Minutes, ONCE, 03/31/19 at | | | | | | [...]
--- OUTSIDE RECORDS SUMMARY | ~2020-03-21 | XMS | Encounter Summary ---
Demographics + + + | Address | [address] | | | [place] [address] | + + + | Home Phone | | + + + | Preferred Language | Unknown | + + + | Marital Status | Single | + + + | Temple Affiliation | Unknown | + + + | Race | Unknown | + + + | Ethnic Group | Unknown | + + + Author + + + | Author | [facility] | | | and [place] | + + + | Organization | [facility] | | | and [place] | + + + | Address | Unknown | + + + | Phone | Unavailable | + + + Support + + + + + | Name | Relationship | Address | Phone | + + + + + | India Tilley | ECON | [address] | | | | | [place], [place] | | | | | [address] | | + + + + + [...] Team Providers + +------+ + | Care Malt House Loader Name | Role | Phone | + +------+ + PCP | Unavailable | + +------+ + Encounter Details +--------+ + + + + | Date | Type | Department | Care Team | Description | +--------+ + + + + | 03/02/ | [facility] | [facility] | [place], | | | 2007 | Encounter | MED CTR EMERGENCY | Venkatesh Esteban MD [address] | | | | CENTER [address] | [place] | | | | | [place] | [place] [id number] | | | | | [address] | [phone] | | | | | [phone] | | | +--------+ + + + [...]
--- OUTSIDE RECORDS SUMMARY | ~2020-03-21 | XMS | Encounter Summary ---
Demographics + + + | Address | [address] | | | [place] [address] | + + + | Home Phone [...] + | Author | [facility] | | | and Kamaljitana | + + + | Organization | [facility] | | | and [place] | + + + | Address | Unknown | + + + | Phone | Unavailable | + + + Support + + + + + | Name | Relationship | Address | Phone | + + + + + | India Tilley | ECON | [address] | | | | | [place], [place] | | | | | [address] | | + + + + + [...] Team Providers + +------+ + | Care Acid Adjuster Name | Role | Phone | + [...] | Services | CKD | Gary, | [place] | | | Required | | (chronic | MD Mayelin | [address] | | | | | kidney | [address] | [address] [place] | | | | | disease) | [place] | [place], [place] | | | | | stage 5, GFR | [place], [place] | [address] | | | | | less than | [address] | Phone: | | | | | 15 ml/min | Phone: | [phone] | | | | | (HCC) Type | [phone] | Fax: | | | | | 2 DM with | Fax: | [phone] | | | | | CKD stage 5 | [phone] | | | | | | and [...] + + | 11/01/ | Hospital | [facility] | Gopi Muñoz | Hypoglycemia; | | 2018 - | Encounter | [facility] | M, DO [address] | Hypothermia, initial | | | | [address] [place] | [address] [place] | encounter; CKD | | 11/09/ | | [place] [address] | [place] [address] | (chronic kidney | | 2018 | | [phone] | [phone] | disease) stage 5, | | | | | | GFR less than 15 | | | | | Rupal Laguna MD | ml/min ([facility]); | | | | | [address] | Essential | | | | | [place] | hypertension; | | | | | [address] | Sepsis, due to | | | | | | unspecified organism | | | | | Nora Leo MD | ([facility]); Uremia; | | | | | [address] [facility] | Controlled type 2 | | | | | [place] [address] | diabetes mellitus | | | | | [phone] | with stage 5 chronic | | | | | | kidney disease not | | | | | | on chronic dialysis, | | | | | | with long-term | | | | | | current use of | | | | | | insulin ([facility]); End | | | | | | stage renal disease | | | | | | ([facility]); Type 2 DM | | | | | | with CKD stage 5 and | | | | | | hypertension ([facility]); | | | | | | Severe | | | | | | protein-calorie | | | | | | malnutrition ([facility]); | | | | | | Anemia in chronic | | | | | | kidney disease, on | | | | | | chronic dialysis | | | | | | ([facility]); Streptococcal | | | | | | bacteremia; Acute | | | | | | hemodialysis | | | | | | encounter ([facility]) | +--------+ + + + + Social [...] might be differ ent from the original. [place] HOSPITALIST DISCHARGE SUMMARY Pt. Name/Age/: Ara [...] insulin glargine 100 units/mL injection (vial) aka: [facility]: Please refer to the H&P for full details and the most recent rounding rounding (progress) n ote. In short this is a 72-year-old woman, history of hypertension, diabetes mellitus type 2 on insulin, chronic kidney disease of stage V, CAD, who presented to [facility] after be ing found down [...] n/a DISPOSITION AND DISCHARGE INSTRUCTIONS: Follow-up Information [facility] On 11/10/2017. Why: 1:00pm Contact information: [address] [place] [id number] Follow up In 3 days. Francisca Womack PA-C In 3 days. Specialty: Internal Medicine Contact information: [address] [place] [id number] Hemodialysis In 1 day. Contact information: Appointment at 1:30 PM Condition: Patient being discharged with condition improved and stable Diet: renal, carbohydrate controlled Greater than 30 minutes were spent on discharge and coordination of post-hospital care. Electronically signed by: Mayelin Vega MD, 11/09/2017 11:06 [facility] Portions of this chart may have been created with [employer] voice recognition software. Occasi onal wrong-word or sound-alike substitutions may have occurred due to the inherent mckeon itations of voice recognition software. Please read the chart carefully and recognize, using context, where these substitutions have occurred documented in this encounter Discharge Instructions AttachmentsThe following attachments cannot be sent through Care Everywhere.Balancing Calci um and Phosphorus, Kidney Disease (Greenlandic)Hemodialysis (Greenlandic)documented in this encounte r Medications at Time [...] Muñoz, DO - 11/09/2017 6:18 PM PST [facility] [address] [place] [address] PROGRESS NOTE Pt. Name/Age/: Ara Tilley 72 y.o. 1945 Med. Record Number: [id number] Date of admission: 11/01/2017 NEPHROLOGY HPI - [...] 3. Complete 10 days total of AB's. [facility] Nora Headley MD - 11/09/2017 4:24 [...] Chayo Rodarte RN 11/09/2017 16:05 Dalia Finnegan TEST AUTOMATION ARCHITECT - 11/09/2017 11:00 AM PSTAuthoashwini met with Nikki, and RN was present [...] what she would want to pursue medically ifelizae got in an accident, and was able to proceed with the conversation within that context. While author was asking her the advance directive questions, klaudia whitney asked to attend, and she agreed. Nikki was raised in [place] and in [place], [place]. She has two brothers and two sisters, and h ad 4 children of her own. Her oldest child, daughter, two months ago. Nikki is gri eving her loss and teared up while talking about her. Her other children live in [facility] and one son has been in [place] for 23 years. She hasn't seen him since he was arr ested and is hopeful she will get to see him next year, as he is schedule to be released at that time. 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 She has at least 4 ye ars post high school education and studied [employer]. In the years prior to [employer], she worked at [employer]. Nikki's mother had chronic kidney disease and [...] and picking up and going to the [facility] in [place]. She must plan it out, and that feels antithetical to her nature. Raj escamilla was present and attentive while she discussed her grief around losing her family member s and her lifestyle, offered supportive pediatric genetic counselor. Chayo Ramirez RN - 11/09/2017 10:00 AM Cam RN arrived at [facility]'s room around 0800 to begin [...] up to do things." This RN reordered [facility] breakfast with items that she chose and [...] 11/08/2017 6:50 PM PSTThis provider, Palliative Care CHECK WRITING MACHINE OPERATOR, met briefly with "Keila Blunt ams this morning to introduce palliative care and [...] note might be different from the tricia ayo [facility] PROGRESS NOTE Patient: Ara Tilley : 1945: Age: 72 y.o. MedRec: [id number] Admission date: 11/01/2017 Hospital day # : [...] Laguna MD 2 00 mg at 11/07/173 [MAR Hold] heparin 1,000 units/mL injection 500 Units 500 Units Intravenous With each dialysis Darlin Moseley MD 500 Units at 11/06/17 0820 [MAR Hold] HYDROcodone-acetaminophen (NORCO) 5-325 mg per tablet 1-2 tablet 1-2 tablet Oral Q4H PRN Rupal Laguna MD 2 tablet at 11/06/17 1653 [MAR Hold] insulin lispro (humaLOG KWIKPEN) 100 units/mL injection (pen) 0-12 Units 0- 12 Units Subcutaneous 4x Daily WC and HS Anibal Malik MD 4 Units at 11/08/17 0949 [MAR Hold] insulin lispro (humaLOG KWIKPEN) 100 units/mL injection (pen) 0-6 Units 0-6 Units Subcutaneous Q2H PRN Haris Segal MD ketamine 50 mg/mL 30 mg, bupivacaine (PF) (MARCAINE) 0.25% 49.75 mL, EPINEPHrine 1 mg/m L 0.25 mg [employer] Infiltration Elevator Mechanic Nora Leo MD [MAR Hold] labetalol (NORMODYNE) tablet 100 mg 100 [...] nephrology recs -Nephro rec permacath needed for senior care dialysis -continue ferrlecit and Epogen 3. CAD- [...] might be different f rom the original. [facility] [place] HOSPITALIST PROGRESS NOTE Patient: Ara Tilley : 1945: Age: 72 y.o. MedRec: [id number] Admission date: 11/01/2017 Hospital day # : [...] units/mL injection (pen) 0-12 Units 0-12 Units Wellre bcutaneous 4x Daily WC and HS Anibal [...] powder 17 g 17 g Oral Daily TEQUILA Laguna MD senna (SENOKOT) tablet 8.6 mg 8.6 mg Oral BID PRLucien Laguna MD Current Infusions: Objective Data Point [...] Procedure Component Value Units Date/Time Culture, Blood [[id number]] (Normal) Collected: 11/04/172121 Order Status: Completed Lab Status: Preliminary result Updated: 11/05/17930 Specimen: Blood from Line Culture No growth: Monitored continually by instrument for 5 days Culture, Blood [[id number]] (Normal) Collected: 11/04/172102 Order Status: Completed Lab [...] Wednesday to determine if permacath needed for senior care dialysis -continue ferrlecit and Epogen 3. CAD- [...] might be different from the maynor rollins [facility] NEPHROLOGY progress note Patient: Ara Tilley : [...] Darlin Moseley MD Electronically signed: 11/07/2017 9:43 [facility] NEPHROLOGY Olegario Keen M D - 11/06/2017 2:15 PM PST [facility] PROGRESS NOTE Patient: Ara Tilley : 1945: Age: 72 y.o. MedRec: [id number] Admission date: 11/01/2017 Hospital day # : [...] mg 8.6 mg Oral BID PRN Rupal Laguna, MD Current Infusions: Heparin Infusion Stopped (11/06/17 [...] Procedure Component Value Units Date/Time Culture, Blood [[id number]] (Normal) Collected: 11/04/172121 Order Status: Completed Lab Status: Preliminary result Updated: 11/05/17930 Specimen: Blood from Line Culture No growth: Monitored continually by instrument for 5 days Culture, Blood [[id number]] (Normal) Collected: 11/04/172102 Order Status: Completed Lab Status: Preliminary result Updated: 11/05/17 09 Specimen: Blood from Line Culture No growth: Monitored continually by instrument for 5 days Culture, Blood [[id number]] (Normal) Collected: 11/03/17 1506 Order Status: Completed [...] to determ ine if permacath needed for senior care dialysis CAD no signs of ACS, EKG [...] M D - 11/06/2017 9:10 AM PST [facility] NEPHROLOGY progress note Patient: Ara Tilley : [...] Continuous Infusions: Heparin Infusion 200 Units/hr (11/06/17 0757) PRN Meds:acetaminophen, albumin, albuterol, bisacodyl, Hypoglycemia Management [...] Darlin Moseley MD Electronically signed: 11/06/2017 9:11 [facility] NEPHROLOGY Olegario Keen M D - 11/05/2017 2:08 PM PST [facility] [place] HOSPITALIST PROGRESS NOTE Patient: Ara Tliley : 1945: Age: 72 y.o. MedRec: [id number] Admission date: 11/01/2017 Hospital day # : [...] Abbie Laguna MD 1 tablet at 11/05/17 08 dextrose 50% injection 12.5 g 12.5 g [...] AC Rupal Lagnua MD 40 mg at 11/05/17 0637 polyethylene [...] Procedure Component Value Units Date/Time Culture, Blood [[id number]] (Normal) Collected: 11/04/172121 Order Status: Completed Lab Status: Preliminary result Updated: 11/05/17 0931 Specimen: Blood from Line Culture No growth: Monitored continually by instrument for 5 days Culture, Blood [[id number]] (Normal) Collected: 11/04/17 210 Order Status: Completed Lab Status: Preliminary result Updated: 11/05/17 0911 Specimen: Blood from Line Culture No growth: Monitored continually by instrument for 5 days Culture, Blood [[id number]] (Normal) Collected: 11/03/17 1506 Order Status: Completed Lab Status: Preliminary result Updated: 11/04/17 031 Specimen: Blood from Peripheral Blood Culture No growth: Monitored continually by instrument for 5 days Culture, Blood [[id number]] (Abnormal) Collected: 11/03/17 0812 Order Status: Completed Lab Status: Preliminary result Updated: 11/05/17 0751 Specimen: Blood from Arm, Left Culture Positive Blood Culture (AA) Staphylococcus coagulase negative Comment: Identification and susceptibility to follow. Probable contaminant Gram Stain Result Gram positive cocci in clusters Comment: 2 of 4 bottles positive Culture, Respiratory, Lower, Smear [[id number]] Collected: 11/03/17 0727 Order Status: Completed Lab [...] M D - 11/05/2017 1:53 PM PST [facility] NEPHROLOGY progress note Patient: Ara Tilley : [...] Darlin Moseley MD Electronically signed: 11/05/2017 13:53 [facility] NEPHROLOGY tGopi rick , DO - 11/04/2017 6:53 PM PST [facility] [address] [place] [address] PROGRESS NOTE Pt. Name/Age/: Ara Tilley 72 y.o. 1945 Med. Record Number: [id number] Date of admission: 11/01/2017 NEPHROLOGY HPI - [...] to high Inpt case load here at [facility]. 2. probable pyelonephritis?--Day #3 Ceftriaxone, [...] for coverage of both organisms, Q 48H. [facility] hase, Queenie Mcgraw RN - 11/04/2017 10:23 AM PSTPatient transferred from ICU into room 307. Oriented to room an d call light. Bed alarm set. Call light in place. Remains on 2L via nasal canula. Makes need s known. Amanda Keen MD - 11/04/2017 7:21 AM PSTFormatting of this note might be different from the origin al. [place] HOSPITALIST PROGRESS NOTE Patient: Ara Tilley : 1945: Age: 72 y.o. MedRec: [id number] Admission date: 11/01/2017 Hospital day # : [...] bcutaneous 4x Daily WC and HS Anibal Mazyck, MD 2 Units at 11/04/17 0134 insulin [...] Procedure Component Value Units Date/Time Culture, Blood [[id number]] (Normal) Collected: 11/03/17 1506 Order Status: Completed Lab Status: Preliminary result Updated: 11/04/17 0311 Specimen: Blood from Peripheral Blood Culture No growth: Monitored continually by instrument for 5 days Culture, Blood [[id number]] (Normal) Collected: 11/03/17 0812 Order Status: Completed Lab Status: Preliminary result Updated: 11/03/17 2041 Specimen: Blood from Arm, Left Culture No growth: Monitored continually by instrument for 5 days Culture, Respiratory, Lower, Smear [[id number]] Collected: 11/03/17 0727 Order Status: Completed Lab Status: Preliminary result Updated: 11/03/17 1028 Specimen: Respiratory from Sputum, expectorated Gram Stain Result 3+ White Blood Cells 2+ Epithelial cells 2+ Gram positive cocci 2+ Gram positive bacilli 1+ Hyphael elements Influenza A and B RNA, NAAT [[id number]] (Normal) Collected: 11/02/17 1050 Order Status: Completed Lab Status: Final result Updated: 11/02/17 1125 Specimen: Respiratory from Nares Influenza A PCR Negative Influenza B PCR Negative Culture, Urine [[id number]] Collected: 11/02/17 0740 Order Status: Completed Lab Status: Preliminary result Updated: 11/03/17 1013 Specimen: Urine Culture >100,000 CFU/ml Lactose Fermenting Gram Negative Bacilli Comment: Identification and susceptibility to follow. Culture, Blood [[id number]] (Normal) Collected: 11/02/17 0024 Order Status: Completed Lab Status: Preliminary result Updated: 11/02/17 1241 Specimen: Blood from Peripheral Blood Culture No growth: Monitored continually by instrument for 5 days Culture, Blood [[id number]] (Abnormal) Collected: 11/02/17 0019 Order Status: Completed [...] 15:14 by Edison Short. Narrative: Culture, MRSA [[id number]] Collected: 11/01/17 2146 Order Status: Completed Lab [...] in chains -Repeat UA (+), urine culture >503638 GNB lactose fermenting -Continue ceftriaxone started 11/02, [...] Olegario Peng 11/04/2017 7:21 [facility] Nick Aguillon RN - 0 11/04/2017 1:06 AM PSTDialysis treatment started and Arterial pressures running in the -400s , trouble shooting ineffective, arterial and venous lines switched, pressures now -50s. Shama tment is running appropriately at this moment, will continue monitoring. Nick Guallpa Gopi Mckenna DO - 11/03/2017 11:20 AM PST [facility] [address] [place] [address] PROGRESS NOTE Pt. Name/Age/: Ara Tilley 72 y.o. 1945 Med. Record Number: [id number] Date of admission: 11/01/2017 NEPHROLOGY HPI - [...] anemia. 4. Encourage ambulation to minimize atelectasis. [facility] Olegario Keen MD - 11/03/2017 7:07 AM PST [facility] [place] HOSPITALIST PROGRESS NOTE Patient: Ara Tilley : 1945: Age: 72 y.o. MedRec: [id number] Admission date: 11/01/2017 Hospital day # : [...] g 17 g Oral Daily PRN Rupal Lagnua MD senna (SENOKOT) tablet 8.6 mg 8.6 [...] PH UA 6.0 5.0 - 8.0 Specific [place] 1.010 1.001 - 1.030 PROTEIN UA 100 [...] Date/Time Influenza A and B RNA, NAAT [[id number]] (Normal) Collected: 11/02/17 1050 Order Status: Completed Lab Status: Final result Updated: 11/02/17 1125 Specimen: Respiratory from Nares Influenza A PCR Negative Influenza B PCR Negative Culture, Urine [[id number]] Collected: 11/02/17 0740 Order Status: Sent Lab Status: In process Updated: 11/02/17 0758 Specimen: Urine Culture, Blood [[id number]] (Normal) Collected: 11/02/17 0024 Order Status: Completed Lab Status: Preliminary result Updated: 11/02/17 1241 Specimen: Blood from Peripheral Blood Culture No growth: Monitored continually by instrument for 5 days Culture, Blood [[id number]] (Abnormal) Collected: 11/02/17 0019 Order Status: Completed Lab Status: Preliminary result Updated: 11/02/17 1515 Specimen: Blood from Peripheral Blood Culture Positive Blood Culture (AA) Gram Stain Result Gram positive cocci in chains Comment: One of four Blood Culture bottles POSITIVE. Critical Result called to and read b ack by Kristen Irving on 11/02/2017 at 15:14 by Edison Short. Narrative: Culture, MRSA [[id number]] Collected: 11/01/17 2146 Order Status: Sent Lab Status: In process Updated: 11/01/172151 Specimen: Respiratory from Mandeep Radiology results Ct Abdomen Pelvis Wo Contrast [...] will consider work up for hypoglycemia Sepsis 2/ to likely UTI +/- CAP procal negative. Flu swab negative. Patient started having fevers on 11/02. CXR with mild sc arring at lung apices. -Blood culture 11/02/ Gram + cocci in chains -Repeat UA [...] PRN Olegario Peng 11/03/2017 7:08 [facility] olph, Ta Restrepo [facility] - 11/02/2017 3:43 PM PST PHARMACY SERVICES: ADMISSION MEDICATION REVIEW Ara Tilley is a 72 y.o. female admitted on 2/19/18. Patient is a somewhat reliable historian. 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 as: Atorvastatin 20mg 1 tab by mouth nightly 1 tab by mouth every morning Calcium- vitamin d 600-400mg 1 tab by mouth twice daily 1 tab by mouth every morning Duloxetine 30mg DR 1 capsule by mouth daily Patient has not started this medication LIVESTOCK BRANDS INSPECTOR, cortés s not filled at pharmacy [id number] 200mg by mouth twice daily 200mg by mouth every morning labetalol 200mg 1 tab by mouth twice daily Patient has not started this medication LIVESTOCK BRANDS INSPECTOR, has not filled at pharmacy Best possible LIVESTOCK BRANDS INSPECTOR medication list after pharmacy review: Prior to [...] performed and electronically signed by Puja Whitman, Tour Coordinator 2017 15:31 Electronically signed by: aT Ronquillo RPH 11/02/2017 15:40 Olegario Keen MD - 11/02/2017 7:21 AM PST [facility] [place] HOSPITALIST PROGRESS NOTE Patient: Ara Nicolas Andres : 1945: Age: 72 y.o. MedRec: [id number] Admission date: 11/01/2017 Hospital day # : [...] 325 mg 325 mg Oral Daily Rupal Laugna MD atorvaSTATin (LIPITOR) tablet 20 mg 20 [...] BID Rupal Laguna MD 200 mg at 2256 heparin 5,000 units/mL injection 5,000 Units 5,000 Units Subcutaneous 2 times per day Rupal Laguna MD 5,000 Units at 11/01/172230 HYDROcodone-acetaminophen (NORCO) 5-325 mg per tablet 1-2 [...] Procedure Component Value Units Date/Time Culture, Blood [[id number]] Collected: 11/02/17 0024 Order Status: Sent Lab Status: In process Updated: 11/02/1732 Specimen: Blood from Peripheral Blood Culture, Blood [[id number]] Collected: 11/02/17 0019 Order Status: Sent Lab Status: In process Updated: 11/02/1732 Specimen: Blood from Peripheral Blood Culture, MRSA [[id number]] Collected: 11/01/172145 Order Status: Sent Lab Status: [...] [facility] documented in this e ncounter H&P Notes Rupal Laguna MD - 11/01/2017 10:36 PM PST HISTORY AND PHYSICAL EXAMINATION Pt. Name/Age/: Ara Tilley 72 y.o. 1945 Date of admission: 11/01/2017 Admitting Physician: Rupal Laguna Primary Care Physician: Nan Bruno History taken from: patient and past medical records Chief Complaint/Reason for Visit: Sent by [facility] for hypoglycemia, hypothyroidism, and CKD History of Present Illness: 72yoF w/ hx of IDDM, HTN, CKD IV/V, CAD, who initially presented to [facility] after iwona garrett found down in [...] time, she had been evaluated by nephrology dayana e to her worsening renal function and [...] whether she really wants to go thro ugh with it. She feels overwhelmed by all [...] negative except as not ed in the HPI or here. Exam: Vital Signs on Arrival: [...] signed by: Rupal Laguna MD, 11/01/2017 22:36 [facility] Lab data: Recent Results (from the past 24 hour(s)) POC Glucose Collection Time: 11/01/17 22:10 Result Value Ref Range Glucose, POC 225 (H) 70 - 109 mg/dL documented in this enc ounter Procedure Notes Gray Quiros MD, FACS - 11/03/2017 3:06 PM PSTProcedure note: Preprocedure diagnoses: Acute and chronic renal failure Postprocedure diagnoses: Same Procedure: Right IJ Mahurkar dialysis catheter Date of procedure: 11/03/2017 Surgeon [...] Leo MD - 11/06/2017 4:06 PM PST [facility] ADMIT HISTORY AND PHYSICAL Primary Care Physician: Francisca Womack PATIENT NAME: Ara Tilley : 1945 TODAY'S DATE: 11/06/2017 CHIEF COMPLAINT: ESRD REASON FOR CONSULTATION: ESRD History OF PRESENT ILLNESS: I was asked by Dr. Brigida Moseley to consult on this patient for the general surgery team. Ara Tilley is a 72 y.o. female with history of diabetes mellitus, hypertension, EK G 12/16, and CAD who was admitted on 11/01 after being transferred from [facility] with seps is likely secondary to UTI +/- [...] neede d for Dry Eyes. Yes Historical ProviderMD atorvaSTATin (LIPITOR) 20 mg tablet Take 20 mg by mouth nightly. Yes Historical Provider, calcium-vitamin D (CALCIUM 600-D) 600 mg-400 units per tablet Take 1 tablet by mouth 2 time s daily. Yes Historical Provider, Chlorhexidine Gluconate 4 % SOLN Apply topically. Use one capful mixed in 1 pint of water and scrub wound daily or as directed. Yes Historical ProviderMD DULoxetine (CYMBALTA) [address] capsule Take [...] small amount to affec rich area. Historical ProviderMD insulin glargine (LANTUS) 100 units/mL injection (vial) Take 20 units SQ each morning incre asing to home regimen(30 units) for increasing blood sugar 10/06/17 Yes Edison Keys MD labetalol (NORMODYNE) 200 mg tablet Take 1 tablet by mouth 2 times daily. Patient not taking: Reported on 11/02/2017 10/06/17 Edison Keys MD Lancets [facility] by Does not apply route. Use 1 lancet for blood testing as directed. Histor ical ProviderMD levothyroxine (SYNTHROID, LEVOTHROID) 75 MCG tablet Take 75 mcg by mouth every morning (bef ore breakfast). Yes Historical ProviderMD loratadine (CLARITIN) 10 mg tablet Take 1 tablet by mouth Daily as needed for Allergies. Yes Edison Keys MD losartan (COZAAR) 25 mg tablet Take 1 tablet by mouth Daily. 10/07/[address] [facility]. Throat Products (OASIS MOISTURIZING MOUTHWASH MT) Take [...] BID Abbie Laguna MD 1 tablet at 11/06/17903 dextrose 50% injection 12.5 g 12.5 g Intravenous PRN Haris Segal MD docusate sodium (COLACE) capsule 100 mg 100 mg Oral BID Olegario Peng MD 100 mg a t 11/06/17 09 docusate sodium (COLACE) capsule 100 mg 100 mg Oral BID PRN Rupal Laguna MD DULoxetine (CYMBALTA) DR capsule 30 mg 30 mg Oral Daily Rupal Laguna MD 30 mg at 0 11/06/17 09 epoetin karthik (EPOGEN, PROCRIT) 10,000 units/mL injection [...] Signed by: Nora Leo MD, 11/06/2017 16:07 [facility] opi Muñoz, DO - 11/02/2017 3:45 PM PST [facility] [address] [place] [address] NEPHROLOGY CONSULT Pt. Name/Age/: Ara Tilley 72 y.o. 1945 Med. Record Number: [id number] Date of admission: 11/01/2017 Reason for consultation: [...] and CKD she was transferred to the Hospi talist Service here last evening. She has [...] daily. ETOH: denies. Single; lives independently, in [place]. FAMILY HISTORY: Father: in his 70's of [...] outpatient hemodialysis, albeit at a younger age. [facility] CC: Jam Hurt D.O., [facility] Olegario Peng M.D. ose Monterroso V, RDN - 11/02/2017 1:48 PM PSTAssociated Order(s): [...] Needs: (based on 70 kg) Kcal needs: 9163-5363 Kcals/day Protein needs:75-90 grams of protein/day Fluid goal:8479-3213 cc fluid per day, restriction for HD [...] in 1 days. Available as needed, ext [phone] Assessment: Diet Order: For your reference, current, [...] Miscellaneous Notes Goals of Care - Dalia Salcido, TEST AUTOMATION ARCHITECT - 11/10/2017 10:17 AM PSTGOALS OF CARE [...] He is due to be released from alf next year and she hopes to see him after that. Fears/Worries: What are your biggest fears and worries about the future with your health? Burdening others She noted that pain is not something that bothers her. Her baseline pain is 6-7/10. Another concern is not being able to be as spontaneous now that she is on dialysis. 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 Function: None of the above Tradeoffs: If you become sicker, how much are you willing to go through for the possibility of gaining more time? Be in the ICU, Be uncomfortable, Have a feeding tube and Live in a mcfp Family: How much do your proxy and family know about your priorities and wishes? Some discussion but incomplete Goals and Plan of Medical Care: Some limitations on diagnostic treatment of condition- balanced with quality of life JENNIFER Fontanez 11/10/17 10:17 lan of Care - Deepa Pham, EDITOR NEWS - 11/09/2017 4:14 PM PSTProblem: Patient Care [...] for home health services obtained. TEJAL contacted [facility] in [facility] ([phone]) regarding new referral. Patient is followed by MARLYN Womack at [facility], and [facility] is not able to admit to services without an MD to [facility]. TEJAL then contacted [facility] who states that the Dr. Hurt will follow the patient, how ever he is out of the office until 11/22, thus will not be able to sign orders until that dutch e. TEJAL called [facility] and informed of MD to follow and faxed referral with c onfirmation of receipt placed in ghost chart. TEJAL then reached out to the Public Health Nurse at [facility] Emili Cueva [phone] who states that she is able to see the patient in her home setting and monitor things such a s blood pressure, medication management, and assist the patient with resources for food, tra nsportation, etc. Emili informed this CM that she can [facility] a [facility] 11/10/17 @ 1130 and will also assist the patient with transportation to the patient's [facility] dialysis appointment tomorrow at 1300. TEJAL faxed medical records to Emili at [facility] ( f:[phone]) with confirmation of receipt placed in ghost chart. CM to patient room to discuss plan. Patient agreeable and verbalized understanding that nurse will be at her home at 1130 tomorrow. Electronically signed by: Pita Alexander, LISA 11/09/2017 17:36 11/10/17 @ 1000: CM received call from Public Health Nurse Emili confirming that she did rec eive the information sent via fax and that she will be [facility] the [facility]. Emili denies any additional information needed from this CM at this time.Electro nically signed by Pita Alexander, RN at 11/10/2017 11:27 AM PSTExcela [facility] - Tamara Moreira RRT - 11/09/2017 5:35 [...] room air. No prn treatments taken. lan [facility] - Cathi Rodriguez RN - 11/09/2017 1:58 [...] to make needs k nown. Nikki c/o 02/20 pain to her RU chest; medicated w/1 [place] (5's) PRN; appeared to be effective as [...] chest from incision, relief noted with 1 [place]. Trace edema in BLE. Independen t in room. Calls appropriately to make needs known. IV removed intact with no complication s noted. AVS and RX reviewed with patient, verbalized understanding. Stressed the importanc e of pt needing to eat. Escorted out in wheelchair with staff. Discharged home with anna torres driving her. Nikki's spirits were lifted this [...] depressed and lonely. Positive reinforcement continually g iven. Case management asked to visit with patient after surgery to discuss financial need. Patient sent case management away and she will try again tomorrow. Patient had 2 visitors after surgery. Comfort care will be discussed with patient tomorrow. While being NPO patie nt's BG ranged from 217-232 mg/dL. Pain managed with administration of [place] 5-325 mg once after surgery. lan of Care - Yina Altman RRT - 11/08/2017 4:28 PM PSTProblem: Patient Care [...] needed. PEP used with encouragement. lan of Care - Pita Echavarria RN - 11/08/2017 3:10 PM PSTDischarge Planning: CM received call from Jossie at [facility] in [place], [place] inquiring about patient d ischarge status. Jossie also inquiring about the patient's hemodialysis and whether or not it has been set up at the facility in [place]. CM contacted [facility] and confirmed that the patient has been [...] CM "I'm not shayna g to a mcfp". CM discussed follow up with dialysis as she is new to HD. CM informe d patient that this CM has been in contact with dialysis in [place]. Patient states "Ther e is one on the res.". CM confirmed that there is a [facility] and that this CM has been in contact with them. Patient then stated to this CM "if you already knew they were there then why did you ask me about it?". At that point CM was dismi ssed from room by patient. CM returned call to [facility] at [facility] and informed that the patient has adamantly refus ed SNF at discharge. Disposition: Home with outpatient hemodialysis follow up. Electronically signed by: Pita Alexander RN 11/08/2017 15:41 p Note - John Leo MD - 11/08/2017 1:36 PM PSTOPERATIVE NOTE Pt. Name/Age/: Ara Tilley 72 y.o. 1945 [facility]. Record Number: [id number] Date of admission: 11/01/2017 Date of Operation/Procedure: 11/08/2017 Pre-Op Diagnosis Codes: end stage renal disease POSTOP DIAGNOSIS: Post-Op Diagnosis Codes: * End stage renal disease on dialysis (HCC) [N18.6, Z99.2] Surgeon: Nora Leo MD Corporate Travel Coordinator(s): none Anesthesia Provider(s): Anesthesiologist: Vinnie Last MD [...] Signed by: Nora Leo MD, 11/08/2017 13:36 [facility] rief Op Note - Nora Leo MD - 11/08/2017 1:34 PM PSTFormatting of this note might be different from the orig inal. Brief Operative Note Ara Maria Isabel Andres 72 y.o. female 1945 [id number] Proc. Date 11/08/2017 Preop Dx end stage renal disease Postop Dx * End stage renal disease on dialysis (HCC) [N18.6, Z99.2] Procedure Tunneled Hemodialysis Catheter Placement Anesthesia General Surgeon Nora Leo MD - Primary Electroplating Laborer EBL 10cc Findings 28cm tunneled HD catheter placed into right internal jugular vein Complications none Specimens * No specimens in log * Drains Electronically signed by: Nora Leo MD 11/08/2017 13:34 [facility] by Nora Leo MD [...] feet. Patient is on 1L of O2. Francine has active bowel tones and last BM was 11/07/2017. Patient denies pain. Pa tient is NPO after midnight. Patient had no injuries or falls during this shift. lan of Care - Tamara Pérez, RUPA - 11/08/2017 5:49 AM PSTProblem: Patient Care [...] hour urine study. Denied terry n. lan [facility] - Vero toure, Wilbur Alvares RN - [...] assistance and remains free of falls. lan [facility] - Tamara Moreira RRT - 11/07/2017 3:14 AM PSTProblem: Patient Care [...] given for use on own. lan of Care - Artur Diamond RN - 11/07/2017 2:20 [...] of dried drainage. lan of Care - Wilbur Henning RN - 11/06/2017 6:53 PM PSTProblem: Patient [...] the 170's uf 2212 , NET OFF 1999. Catheters flushed and 1.5 mL/ 1500 units [...] injury reported. lan of Care - Bry Victor RRT - 11/05/2017 10:55 PM PSTProblem: Patient Care [...] monitor and treat as needed. lan of Care - Danni Bowman RN - 11/05/2017 6:07 [...] [facility] completed today at bedside. lan of Care - Christy kokirajmauro Liam F, EDITOR NEWS - 11/05/2017 10:05 AM PSTProblem: Patient Care [...] and appeared to be crying. lan of [facility] - Collette Dunn - 11/05/2017 7:25 AM PSTFaxed referral to [facility]. Electronically signed by: Collette Shanks 11/05/2017 7:25 Received a call from Anayeli @ [facility] stating she will be on stand by IF Nikki needs to go her way. HD will need to be set up prior. This CM let Markovivi know that Nikki will probably discharge home. Electronically signed by: Collette Shanks 11/05/2017 12:45 lan of [facility] - Gregg Castro RN - 11/05/2017 3:47 [...] Guallpa RN lan of Care - Bry Lucero, EDITOR NEWS - 11/04/2017 9:48 PM PSTProblem: Patient Care [...] monitor and treat as needed. lan of Care - Tamara Lawson EDITOR NEWS - 11/04/2017 5:59 PM PSTProblem: Patient Care [...] using PEP on her own. lan of Ashlie Benitez RN - 11/04/2017 4:00 PM PSTHD initiated per NxStage machine, RIJ dialysis access, rates as ordered. lan of Queenie Colorado RN - 11/04/2017 3:17 PM PSTProblem: Patient [...] oximetry with SpO2 >90 by 11/07/17. 6. Raa will have breath sounds consistent with baseline [...] be discharged in a safe manner Outcome: Unchanged Linh from [facility] called to check up on patient so some verbal clinicals given h er, letting her know that patient moved down to floor care status this AM, to room 307 and g ave her Collette, DP's number to call if any more updates are needed. She appreciated the update d clinicals. Electronically signed by: Sharon Rosado RN 11/04/2017 14:38 lan of [facility] - Gregg Guallpa RN - 11/04/2017 2:15 [...] comfortably , will continue to monitor. Nick Guallpa RN 11/04/2017 lan of Care - Pro Myles Chaplain - 11/03/2017 4:10 PM PST Spiritual Care Ara Tilley is a 72 y.o. female who is admitted for Hypothermia Hypoglycemia needs AV shunt. Spiritual Evaluation: Traditional and Hinduism Spiritual Intervention: Active listening, pastoral presence. Spiritual Outcomes: Patient was grateful for the Cement Worker's visit. Spiritual Goals / Follow-up: Will see the patient as requested. If there are any other spiritual care issues that arise, please contact chest pain coordinator. lan of Care - Venkatesh Rosario, EDITOR NEWS - 11/03/2017 11:49 AM PSTProblem: Patient Care [...] lan of Care - Steven mcgraw, Татьяна Alvares RN - 11/03/2017 5:37 AM PSTProblem: Patient [...] of health. VSS. HR SR/RBBB c PACs. [place] controls chronic back pain well. Lungs very [...] treat as indicated. lan of Care - Matthieu priestt, Sofya Restrepo RRT - 11/02/2017 9:15 PM PSTProblem: Patient [...] improved 99%, RN notified of findings. lan of Care - Kristen Irving RN - 11/02/2017 6:22 [...] at midnight. Son staying at bedside. lan of Care - Sharon Rosado RN - 11/02/2017 2:44 PM PSTProblem: Discharge Planning Goal: Patient will be discharged in a safe manner Outcome: Improving This CM met with patient, her spouse, and sisters' to discuss her d/c plan. Patient was sleeping so talked with her and family. Patient lives with her spouse in [place] and per one of the sister's, she [...] and so has only met with the [facility] RN meera Mao once and they feel she will need to be followed up closer since it is anticipat ed that she will be set up for new ongoing dialysis from here on out. She is planning on using [facility] in [place] for her dialysis needs once discharged. This CM called and spoke with Linh at [facility], and she confirmed that patient ch anged her PA to Francisc[facility] Wom[facility] recently (called patient access and had Leatha change it in EPIC). She had just recently seen her PCP, Nan Bruno on Oct 07. Linh also stated that she gets her 11 meds there as well. Per Linh, the [facility] Rep went out to the home to [...] RN PT. CM to follow up with [facility]. CM to follow regarding PT eval recommendations. [facility] [place]. Electronically signed by: Sharon Rosado RN 11/02/2017 [...] | | | | than 15 ml/min ([facility]) | | | | | | Type 2 DM with CKD | | | | | | stage 5 and | | | | | | hypertension ([facility]) | | | | | | Acute [...] | | PERMACATH | | PST | ([facility]) | | + +--------+ + + + [...] [address] | [place] | [phone] | | [facility] | | [address] | | | - LABORATORY | | | | + + + + + Omi Manual (11/09/2017 6:41 AM PST) + + [...] + | [facility] | [address] | [place] | [phone] | | [facility] | | [address] | | | - LABORATORY | | [...] [address] | [place] | [phone] | | [facility] | | [address] | | | - LABORATORY | | [...] 2.99 (H) | 0.60 - 1.30 | [facility] | | | | | mg/dL | [facility] | | | | | | MEDICAL | | | | | | CENTER - | | | | | | LABORATORY | | + + + + + + | eGFR if not | 15 (L)Comment: | >=60 | [place] | | | | GLOMERULAR FILTRATION | mL/min/1.73m2 | [facility] | | | [place] [facility] | RATE,ESTIMATED | | MEDICAL | | | | mL/min/1.21m0Qkwe than | | CENTER - | | [...] | [address] [facility] | [address] | [place] | [phone] | | [facility] | | [address] | | | - LABORATORY | | [...] [address] | [place] | [phone] | | [facility] | | [address] | | | - LABORATORY | | [...] + | [facility] | [address] | [place] | [phone] | | [facility] | | [address] | | | - LABORATORY | | [...] Urine | appended report. These | | [facility] | | | | results have [...] [address] | [place] | [phone] | | [facility] | | [address] | | | - LABORATORY | | [...] | [facility] [address] [facility] | [address] | [place] | [phone] | | [facility] | | [address] | | | - LABORATORY | | [...] [address] | [place] | [phone] | | [facility] | | [address] | | | - LABORATORY | | [...] + | [facility] | [address] | [place] | [phone] | | [facility] | | [address] | | | - LABORATORY | | [...] | | | | mmol/L | [facility] | | | | [...] 109 mg/dL | [facility] | | | | [...] not | 17 (L)Comment: | >=60 | [facility] | | | | GLOMERULAR FILTRATION | mL/min/1.73m2 | [facility] | | | [place] | RATE,ESTIMATED | | MEDICAL | | | | mL/min/1.20q0Nbwo than | | CENTER - | | [...] + | [facility] [facility] | [address] | [place] | [phone] | | [facility] | | [address] | | | - LABORATORY | | [...] | | Neutrophils | | K/uL | [facility] | | [...] [address] | [place] | [phone] | | [facility] | | [address] | | | - LABORATORY | | [...] + | [facility] | [address] | [place] | [phone] | | [facility] | | [address] | | | - LABORATORY | | [...] | | | POC | | | [facility] | | | | | | [...] + | [facility] | [address] | [place] | [phone] | | [facility] | | [address] | | | - LABORATORY | | [...] ST. | [address] | [place], [place] | [phone] | | [facility] | | [address] | | | - LABORATORY | | [...] [address] | [place] | [phone] | | [facility] | | [address] | | | - LABORATORY | | [...] no bands or immature cells noted | [facility] | | | [facility] | | | MEDICAL CENTER | | | - LABORATORY | + + + + + + + + | Performing | Address | City/State/Zipcode | Phone Number | | Organization | | | | + + + + + | [facility] | [address] | [place] | [phone] | | [facility] | | [address] | | | - LABORATORY | | [...] ST. | [address] | [place] | [phone] | | [facility] | | [address] | | | - LABORATORY | | [...] | Neutrophils | | K/uL | [facility] | | | | [...] + | [facility] | [address] | [place] | [phone] | | [facility] | | [address] | | | - LABORATORY | | [...] 2.24 (H) | 0.60 - 1.30 | [facility] | | | | | mg/dL | [facility] | | | | | | MEDICAL | | | | | | CENTER - | | | | | | LABORATORY | | + + + + + + | eGFR if not | 22 (L)Comment: | >=60 | [place] | | | | GLOMERULAR FILTRATION | mL/min/1.73m2 | [facility] | | | [place] | RATE,ESTIMATED | | MEDICAL | | | | mL/min/1.71g0Ybrd than | | CENTER - | | [...] | [facility] [address] [facility] | [address] | [place] | [phone] | | [facility] | | [address] | | | - LABORATORY | | [...] [address] | [place] | [phone] | | [facility] | | [address] | | | - LABORATORY | | [...] [address] | [place] | [phone] | | [facility] | | [address] | | | - LABORATORY | | [...] + | [facility] | [address] | [place] | [phone] | | [facility] | | [address] | | | - LABORATORY | | [...] <10% | [facility] | | | [facility] | | | [facility] | | | - LABORATORY | + + + + + + + + | Performing | Address | City/State/Zipcode | Phone Number | | Organization | | | | + + + + + | [facility] | [address] | [place] | [phone] | | [facility] | | [address] | | | - LABORATORY | | | | + + + + + Phosphorus (11/06/2017 6:42 AM PST) + +---------+ + + + | Component | Value | Ref Range | Performed | Pathologist | | | | | At | Signature | + +---------+ + + + | Phosphorus | 2.4 (L) | 2.5 - 4.6 mg/dL | [facility] | | | [...] ST. | [address] | [place] | [phone] | | [facility] | | [address] | | | - LABORATORY | | [...] [address] | [place] | [phone] | | [facility] | | [address] | | | - LABORATORY | | [...] | | Cells | | M/uL | [facility] | | | | | | MEDICAL | | | | | | CENTER - | | | | | | LABORATORY | | + + + + + + | Hemoglobin | 9.0 (L) | 11.5 - 16.0 | [facility] | | | | | g/dL | [facility] | | | | | | [...] [address] | [place] | [phone] | | [facility] | | [address] | | | - LABORATORY | | [...] 108 | 70 - 109 mg/dL | [facility] | | | | | | [facility] | | | | | | MEDICAL | | | | | | CENTER - | | | | | | LABORATORY | | + + + + + + | BUN | 30 (H) | 7 - 18 mg/dL | [facility] | | | | | | [facility] | | | | | | MEDICAL | | | | | | CENTER - | | | | | | LABORATORY | | + + + + + + | Creatinine | 2.40 (H) | 0.60 - 1.30 | [facility] | | | | | mg/dL | [facility] | | | | | | MEDICAL | | | | | | CENTER - | | | | | | LABORATORY | | + + + + + + | eGFR if not | 20 (L)Comment: | >=60 | [facility] | | | | GLOMERULAR FILTRATION | mL/min/1.73m2 | [facility] | | | [place] | RATE,ESTIMATED | | MEDICAL | | | | mL/min/1.77l4Kcjo than | | CENTER - | | [...] | | ine Ratio | | | [facility] | | | [...] [address] | [place] | [phone] | | [facility] | | [address] | | | - LABORATORY | | [...] [address] | [place] | [phone] | | [facility] | | [address] | | | - LABORATORY | | [...] + | [facility] | [address] | [place] | [phone] | | [facility] | | [address] | | | - LABORATORY | | [...] + | [facility] | [address] | [place], [place] | [phone] | | [facility] | | [address] | | | - LABORATORY | | [...] | | | ARA Room Number 307 MARIA ISABEL | | | Patient Number [id number] Date of Study | | | 11/05/2017 Visit Number [id number] | | | Referring Physician AUDI ANDRADE Number Date of | | | 1945 Posting Machine Operator Martell En | | | Age 72 year(s) Interpreting | | | GENIE WARREN | | | Broomcorn Seeder CHAYO | | | SHERRIE RADFORD, | | | | | | Gender Female Nurse | | | Stress Machine Grainer | | | Procedure Type of Study [...] valve cusps without reducedexcursion.Tricuspid | | | AaidzOitw-ce-miqsesir tricuspid regurgitation suggestive of a mildly | [...] | | | EF | | | Seyyvpkfp98% Left Ventricle Diastolic Dimension: 4.77 cm Septum [...] |excursion. | | |Tricuspid Valve | | |Igoo-yc-yypogjmj tricuspid regurgitation suggestive of a mildly elevated [...] Volume: 60.67 ml | | | EF Rthaylipg41% | | | | | | Left [...] + | Anjum Jordan Results In - 11/05/2017 4:27 PM [facility] Transthoracic Echocardiography Report | | (TTE) Demographics Patient Name [facility] Room Number 307 | | MARIA IASBEL Patient Number [id number] Date of Study 11/05/2017 Visit Number | | [id number] Referring Physician AUDI ANDRADE | | Number Date of 1945 Posting Machine Operator Jasbir En Age | | 72 year(s) Interpreting GENIE WARREN | | Broomcorn Seeder CHAYO | | SHERRIE RADFORD MD Gender [...] aortic valve cusps | | without reducedexcursion.Tricuspid BmedjTxki-ku-bxdeewfg tricuspid regurgitation | | suggestive of a [...] LA Volume: 60.67 ml | | EF Xtznszbeq64% Left Ventricle Diastolic Dimension: 4.77 | | [...] reduced | |excursion. | |Tricuspid Valve | |Rwrv-at-zwhphxgk tricuspid regurgitation suggestive of a mildly elevated [...] LA Volume: 60.67 ml | | EF Zmzivygyv56% | | | | Left Ventricle | [...] [address] | [place] | [phone] | | [facility] | | [address] | | | - LABORATORY | | [...] + | [facility] | [address] | [place] | [phone] | | [facility] | | [address] | | | - LABORATORY | | [...] [address] | [place] | [phone] | | [facility] | | [address] | | | - LABORATORY | | [...] [address] | [place] | [phone] | | [facility] | | [address] | | | - LABORATORY | | [...] | | | Cells | | | [facility] | | | | | | MEDICAL | | | | | | CENTER - | | | | | | LABORATORY | | + + + + + + | Red Blood | 2.77 (L) | 3.70 - 5.20 | [facility] | | | Cells | | M/uL | [facility] | | | | | | MEDICAL | | | | | | CENTER - | | | | | | LABORATORY | | + + + + + + | Hemoglobin | 8.3 (L) | 11.5 - 16.0 | [facility] | | | | | g/dL | . [facility] | | | | [...] + | [facility] | [address] | [place] | [phone] | | [facility] | | [address] | | | - LABORATORY | | [...] | | | | | mmol/L | [facility] | | | | | | [...] mL/min/1.73m2 | [facility] | | | [place] | RATE,ESTIMATED | | MEDICAL | | | | mL/min/1.14j3Elyv than | | CENTER - | | [...] + | BUN/Creatin | 14.9 | | [facility] | | | ine Ratio | | [...] [address] | [place] | [phone] | | [facility] | | [address] | | | - LABORATORY | | [...] ST. | [address] | [place] | [phone] | | [facility] | | [address] | | | - LABORATORY | | [...] [address] | [place] | [phone] | | [facility] | | [address] | | | - LABORATORY | | [...] [address] | [place] | [phone] | | [facility] | | [address] | | | - LABORATORY | | [...] + | [facility] | [address] | [place] | [phone] | | [facility] | | [address] | | | - LABORATORY | | [...] + | [facility] | [address] | [place] | [phone] | | [facility] | | [address] | | | - LABORATORY | | | | + + + + + C-Reactive Protein (11/04/2017 4:19 AM PST) + + + + + + | Component | Value | Ref Range | Performed | Pathologist | | | | | At | Signature | + + + + + + | CRP | 253.22 (H) | <8.00 mg/L | [facility] | | | | | [...] [address] | [place] | [phone] | | [facility] | | [address] | | | - LABORATORY | | [...] [address] | [place] | [phone] | | [facility] | | [address] | | | - LABORATORY | | | | + + + + + Magnesium (11/04/2017 4:19 AM PST) + +-------+ + + + | Component | Value | Ref Range | Performed | Pathologist | | | | | At | Signature | + +-------+ + + + | Magnesium | 1.9 | 1.8 - 2.5 mg/dL | [facility] [...] | [address] | [address] | [place] | [phone] | | [facility] | | [address] | | | - LABORATORY | | [...] | | Cells | | M/uL | STMarianela MULTANI | [...] [address] | [place] | [phone] | | [facility] | | [address] | | | - LABORATORY | | [...] | mL/min/1.73m2 | [facility] | | | [place] | RATE,ESTIMATED | | MEDICAL | | | | mL/min/1.45m3Mect than | | CENTER - | | [...] [address] | [place] | [phone] | | [facility] | | [address] | | | - LABORATORY | | [...] + | [facility] | [address] | [place] | [phone] | | [facility] | | [address] | | | - LABORATORY | | [...] | | POC | | | [facility] | | | | | | MEDICAL [...] ST. | [address] | [place], [place] | [phone] | | [facility] | | [address] | | | - LABORATORY | | [...] [address] | [place] | [phone] | | [facility] | | [address] | | | - LABORATORY | | [...] [address] | [place] | [phone] | | [facility] | | [address] | | | - LABORATORY | | [...] [address] | [place] | [phone] | | [facility] | | [address] | | | - LABORATORY | | [...] + | [facility] | [address] | [place] | [phone] | | [facility] | | [address] | | | - LABORATORY | | [...] [address] | [place] | [phone] | | [facility] | | [address] | | | - LABORATORY | | [...] [address] | [place] | [phone] | | [facility] | | [address] | | | - LABORATORY | | [...] [address] | [place] | [phone] | | [facility] | | [address] | | | - LABORATORY | | [...] | | | (AA) | | [facility] | | | | | | MEDICAL | | | | | | CENTER - | | | | | | LABORATORY | | + + + + + + | Culture | Staphylococcus | | [facility] | | | | epidermidisComment: In 2 | | STM[facility] | | | | of 4 bottles [...] + | [facility] | [address] | [place] | [phone] | | [facility] | | [address] | | | - LABORATORY | | [...] | | Result | | | STMarianela NERISSA | | [...] | [facility] [address] [facility] | [address] | [place] | [phone] | | [facility] | | [address] | | | - LABORATORY | | [...] + | [facility] [facility] | [address] | [place], [place] | [phone] | | [facility] | | [address] | | | - LABORATORY | | [...] + | Performed at: 01 - [facility] [place] [address], | REFERENCE LAB | | [place], [place] [id number] Director Insurance: Ernie Lee MD, Phone: | LIZ - TETE | | [phone] | | + + + + + + + + | Performing | Address | City/State/Zipcode | Phone Number | | Organization | | | | + + + + + | REFERENCE LAB | [address] | [place], [place] | [phone] | | [facility] | Drive [facility] | [address] | | + + + + + [...] [address] | [place] | [phone] | | [facility] | | [address] | | | - LABORATORY | | [...] [address] | [place] | [phone] | | [facility] | | [address] | | | - LABORATORY | | [...] | | | Cells | | | Marianela [facility] | | | | | | MEDICAL | | | | | | CENTER - | | | | | | LABORATORY | | + + + + + + | Red Blood | 2.97 (L) | 3.70 - 5.20 | [facility] | | | Cells | | M/uL | N[facility] | | | | | [...] | | | | | | [facility] | | [...] [address] | [place] | [phone] | | [facility] | | [address] | | | - LABORATORY | | [...] test | | | | | | ([id number]). | | | | + + + + + + + + | Specimen | + + | Blood | + + + + + | Narrative | Performed At | + + + | Performed at: 01 - [facility] [place] [address], | REFERENCE LAB | | [place], [place] [id number] Director Insurance: Ernie Lee MD, Phone: | LIZ EPSTEIN | | [phone] | | + + + + + + + + | Performing | Address | City/State/Zipcode | Phone Number | | Organization | | | | + + + + + | REFERENCE LAB | [address] | [place], [place] | [phone] | | [facility] | Drive [facility] | [address] | | + + + + + [...] not | 12 (L)Comment: | >=60 | [facility] | | | | GLOMERULAR FILTRATION | mL/min/1.73m2 | [facility] | | | [place] | RATE,ESTIMATED | | MEDICAL | | | | mL/min/1.32n2Makx than | | CENTER - | | [...] | | ine Ratio | | | [facility] | | | | | | [...] [address] | [place] | [phone] | | [facility] | | [address] | | | - LABORATORY | | [...] + | [facility] | [address] | [place] | [phone] | | [facility] | | [address] | | | - LABORATORY | | [...] [address] | [place] | [phone] | | [facility] | | [address] | | | - LABORATORY | | [...] [address] | [place] | [phone] | | [facility] | | [address] | | | - LABORATORY | | [...] [address] | [place] | [phone] | | [facility] | | [address] | | | - LABORATORY | | [...] [address] | [place] | [phone] | | [facility] | | [address] | | | - LABORATORY | | [...] [address] | [place] | [phone] | | [facility] | | [address] | | | - LABORATORY | | [...] [address] | [place] | [phone] | | [facility] | | [address] | | | - LABORATORY | | [...] [address] | [place] | [phone] | | [facility] | | [address] | | | - LABORATORY | | [...] ST. | [address] | [place], [place] | [phone] | | [facility] | | [address] | | | - LABORATORY | | | | + + + + + POC Glucose (11/02/2017 11:03 AM PST) + +-------+ + + + | Component | Value | Ref Range | Performed | Pathologist | | | | | At | Signature | + +-------+ + + + | Glucose, | 80 | 70 - 109 mg/dL | R[facility] [...] [address] | [place] | [phone] | | [facility] | | [address] | | | - LABORATORY | | [...] | | PCR | | | [facility] | | | | | | MEDICAL | | | | | | CENTER - | | | | | | LABORATORY | | + + + + + + | Influenza B | Negative | Negative | [facility] | | | PCR | | | [facility] | | [...] [address] | [place] | [phone] | | [facility] | | [address] | | | - LABORATORY | | | | + + + + + POC Glucose (11/02/2017 10:34 AM PST) + +-------+ + + + | Component | Value | Ref Range | Performed | Pathologist | | | | | At | Signature | + +-------+ + + + | Glucose, | 74 | 70 - 109 mg/dL | RIM[facility] [...] [address] | [place] | [phone] | | [facility] | | [address] | | | - LABORATORY | | [...] | [address] | [address] | [place] | [phone] | | [facility] | | [address] | | | - LABORATORY | | [...] [address] | [place] | [phone] | | [facility] | | [address] | | | - LABORATORY | | [...] [address] | [place] | [phone] | | [facility] | | [address] | | | - LABORATORY | | [...] + | [facility] | [address] | [place] | [phone] | | [facility] | | [address] | | | - LABORATORY | | [...] [address] | [place] | [phone] | | [facility] | | [address] | | | - LABORATORY | | [...] [address] | [place] | [phone] | | [facility] | | [address] | | | - LABORATORY | | [...] + | [facility] | [address] | [place] | [phone] | | [facility] | | [address] | | | - LABORATORY | | [...] mL/min/1.73m2 | [facility] | | | [place] | RATE,ESTIMATED | | MEDICAL | | | | mL/min/1.71d3Ttdi than | | CENTER - | | [...] | 8.7 | 8.3 - 10.5 | [facility] | | | | | [...] ST. | [address] | [place], [place] | [phone] | | [facility] | | [address] | | | - LABORATORY | | [...] [address] | [place] | [phone] | | [facility] | | [address] | | | - LABORATORY | | [...] - 1.030 | [facility] | | | [place], | | | [facility] | | [...] + | [facility] | [address] | [place] | [phone] | | [facility] | | [address] | | | - LABORATORY | | [...] | | | | | | [employer] | | | | | [...] + | [facility] | [address] | [place] | [phone] | | [facility] | | [address] | | | - LABORATORY | | [...] [address] | [place] | [phone] | | [facility] | | [address] | | | - LABORATORY | | [...] [address] | [place] | [phone] | | [facility] | | [address] | | | - LABORATORY | | [...] + | [facility] | [address] | [place] | [phone] | | [facility] | | [address] | | | - LABORATORY | | [...] [address] | [place] | [phone] | | [facility] | | [address] | | | - LABORATORY | | [...] [address] | [place] | [phone] | | [facility] | | [address] | | | - LABORATORY | | [...] + | [facility] | [address] | [place] | [phone] | | [facility] | | [address] | | | - LABORATORY | | [...] | third generation TSH | uIU/mL | [facility] | | | | test. | | [...] [address] | [place] | [phone] | | [facility] | | [address] | | | - LABORATORY | | [...] | | | | | | [employer] | | | | | [...] [address] | [place] | [phone] | | [facility] | | [address] | | | - LABORATORY | | [...] [address] | [place] | [phone] | | [facility] | | [address] | | | - LABORATORY | | [...] [address] | [place] | [phone] | | [facility] | | [address] | | | - LABORATORY | | [...] | | | | | | [facility] | | [...] not | 12 (L)Comment: | >=60 | [facility] | | | | GLOMERULAR FILTRATION | mL/min/1.73m2 | Marianela NERISSA | | | [place] | RATE,ESTIMATED | | MEDICAL | | | | mL/min/1.15u0Zzns than | | CENTER - | | [...] + | [facility] | [address] | [place] | [phone] | | [facility] | | [address] | | | - LABORATORY | | [...] ST. | [address] | [place], [place] | [phone] | | [facility] | | [address] | | | - [...] [address] | [place] | [phone] | | [facility] | | [address] | | | - LABORATORY | | [...] [address] | [place] | [phone] | | [facility] | | [address] | | | - LABORATORY | | [...] for comparison only - no result from [place]. | [facility] | + + + [...] stage 5, GFR less than 15 ml/min (HCC) Chronic kidney | | disease, Stage V | + + | Essential hypertension Unspecified essential hypertension | + + | Sepsis, due to unspecified organism | + + | Uremia Renal failure, unspecified | + + | Controlled type 2 diabetes mellitus with stage 5 chronic kidney disease not on chronic | | dialysis, with long-term current use of insulin (HCC) | + + | End stage renal [...] abnormal blood chemistry | + + | Diabetes - INSULIN Control | + + | Decreased glomerular filtration rate (GFR) | + + | Hypertension Unspecified essential hypertension | + + documented in this encounter [...] PRN, PRN | | | hypotension., Starting Wed | | | 11/09/17 at 0744, For [...] | | | Starting 11/01/17 at 2144, If | | | all [...] | | | | DIALYSIS - ONCE, Dian 11/04/17 at | | | | | [...] | | | | | | use [place] 10/325 if ordered. If | | [...] | | | | | | use [place] 10/325 if ordered. If | | [...] | | | | | | | 9005-4454 Use NIGHT DOSE for | | | | | | | doses scheduled: HS, 3AM, | | | | | | | Nighttime 7721-7429, | | | | | | + [...] scheduled: AC, | | | NPO, Daytime 1847-7500 Use NIGHT | | | DOSE for doses scheduled: | | | HS, 3AM, Nighttime 2201-6040, | | + +---+ | | | [...] | | | DAY, First dose on [facility] 11/04/17 | | AM PST | [...] 9:08 | | | | | on Wed11/02/17 at 0900, Hold for | | AM [...] PRN, PRN | | | hypotension, Starting Wed11/09/17 | | | at 0744, For BP [...] | DAILY, First dose on [facility] 11/04/17 | | AM PST | [...] | | | | | dose on 11/09/17 at 0900 | | AM PST [...]
--- OUTSIDE RECORDS SUMMARY | ~2020-03-21 | XMS | Encounter Summary ---
Demographics + + + | Address | [address] | | | [place] [address] | + + + | Home Phone [...] Author | [facility] | | | and [place] | + + + | Organization | [facility] | | | and [place] | + + + | Address | Unknown | + + + | Phone | Unavailable | + + + Support + + + + + | Name | Relationship | Address | Phone | + + + + + | [place] T[place] | [place] | [address] | | | | | [place], [place] | | | | | [address] | | + + + + + [...] Team Providers + +------+ + | Care Heater Installer Name | Role | Phone | + +------+ + PCP | Unavailable | + +------+ + Encounter Details +--------+ + + + + | Date | Type | Department | Care Team | Description | +--------+ + + + + | 05/16/ | [facility] | [facility] | Patricia, | | | 2007 - | Encounter | [facility] | Venkatesh Forte MD [address] | | | | CENTER [address] | [place] | | | 06/12/ | | [place] | [place] [address] | | | 2007 | | [address] | [phone] | | | | | [phone] | | | +--------+ + + + [...]
--- OUTSIDE RECORDS SUMMARY | ~2020-03-21 | XMS | Encounter Summary ---
Demographics + + + | Address | [address] | | | [place] [address] | + + + | Home Phone [...] + + + | Author | [facility] | | | and [place] | + + + | Organization | [facility] | | | and [place] | + + + | Address | Unknown | + + + | Phone | Unavailable | + + + Support + + + + + | Name | Relationship | Address | Phone | + + + + + | [place] T[place] | [place] | [address] | | | | | [place], [place] | | | | | [address] | | + + + + + [...] Team Providers + +------+ + | Care Inside Plant Supervisor Name | Role | Phone | + +------+ + | Renato Pierson | PCP | | + +------+ + Reason for Visit + +--------+ + | Reason | Onset | Comments | | | Date | | + +--------+ + | Surgery Appointment | 07/26/ | | | | 2019 | | + +--------+ + Encounter Details +--------+ + + + + | Date | Type | Department | Care Team | Description | +--------+ + + + + | 07/26/ | Telephone | [facility] | Francisca Robert, | Surgery Appointment | | 2019 | | VASCULAR SURGERY | RN | | | | | [address] | | | | | | [facility] | | | | | | [address] | | | | | | [phone] | | | +--------+ + + + [...] this encounter Miscellaneous Notes Telephone Encounter - Francisca Robert, RN - 07/26/2019 3:01 PM PSTReceived fistulagram re quest for R from [facility] on behalf of patient for "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 Called patient, no answer-left voicemail.Electronically signed by Francisca Robert RN at 3:23 PM PSTdocumented in this encounter Plan of Treatment Not on filedocumented as of this encounter Visit Diagnoses Not on filedocumented in this encounter
--- OUTSIDE RECORDS SUMMARY | ~2020-03-21 | XMS | Encounter Summary ---
Demographics + + + | Address | [address] | | | [place] [address] | + + + | Home Phone [...] | [facility] | | | and [place] | + + + | Organization | [facility] | | | and [place] | + + + | Address | Unknown | + + + | Phone | Unavailable | + + + Support + + + + + | Name | Relationship | Address | Phone | + + + + + | [place] T[place] | ECON | [address] | | | | | [place], [place] | | | | | [address] | | + + + + + [...] Team Providers + +------+ + | Care Data Governance Analyst Name | Role | Phone | + +------+ + | Renato Pierson | PCP | | + +------+ + Reason for Referral Diagnostic/Screening (Routine) + +--------+ + + + + | Status | Reason | Specialty | Diagnoses / | Referred By | Referred To | | | | | Procedures | Contact | Contact | + +--------+ + + + + | Authorizatio | | Radiology | Diagnoses | Cesar | [facility] | | n not | | | ESRD (end | Vascular | Intra Op [id number] | | Required | | | stage renal | Surgery | [address] | | | | | disease) on | [address] | [place], [place] | | | | | dialysis | [address] | [address] | | | | | (HCC) | [address] | Phone: | | | | | Procedures | [place], [place] | [phone] | | | | | IR Inj | [address] | Fax: | | | | | Dialysis | Phone: | | | | | | Circuit | [phone] | | | | | | | Fax: | | | | | | | [phone] | | + +--------+ + + + + Reason for Visit + +--------+ + | Reason | Onset | Comments | | | Date | | + +--------+ + | Procedure | 07/31/ | | | | 2018 | | + +--------+ + Encounter Details +--------+ + + + + | Date | Type | Department | Care Team | Description | +--------+ + + + + | 07/31/ | Telephone | [facility] | Louise Fink, | Procedure | | 2019 | | VASCULAR SURGERY | RN | | | | | [address] | | | | | | [place] | | | | | | [address] | | | | | | [phone] | | | +--------+ + + + [...] this encounter Miscellaneous Notes Telephone Encounter - Louise Fink RN - 07/31/2019 2:41 PM PSTReferral received from patient's dialysis center, patient is experiencing prolonged bleeding post fistulagram[facility] support specialist Dr Moseley is requesting a fistulagram. Called and spoke to patient's rere lysis RN while patient is on dialysis, patient states she needs to "come up with some gas mo cedric" before her procedure. Discuss with Dr Johnston, vivek to add on according to patient's need . Hence procedure is scheduled for 08/17/2019. Patient will call back if any issue arises. documented in this encounter Plan of Treatment + +---------+--------+ + + | Name | Type | Priori | Associated Diagnoses | Order Schedule | | | | ty | | | + +---------+--------+ + + | IR Inj Dialysis | Imaging | Routin | ESRD (end stage | Expected: | | Circuit | | e | renal disease) on | 07/31/2019, Expires: | | | | | dialysis ([facility]) | 07/31/2020 | + +---------+--------+ + + documented as of this encounter Visit Diagnoses + + | Diagnosis | + + | ESRD (end stage renal disease) on dialysis (HCC) - Primary End stage renal disease | + + documented in this encounter
--- OUTSIDE RECORDS SUMMARY | ~2020-03-21 | XMS | Encounter Summary ---
Demographics + + + | Address | [address] | | | [place] [address] | + + + | Home Phone | | + + + | Preferred Language | Unknown | + + + | Marital Status | Single | + + + | Rastafarian Affiliation | Unknown | + + + | Race | Unknown | + + + | Ethnic Group | Unknown | + + + Author + + + | Author | and [facility] | | | and [place] | + + + | Organization | and [facility] | | | and [place] | + + + | Address | Unknown | + + + | Phone | Unavailable | + + + Support + + + + + | Name | Relationship | Address | Phone | + + + + + | India Tilley | ECON | [address] | | | | | [place], [place] | | | | | [address] | | + + + + + [...] Team Providers + +------+ + | Care Real Estate Sales Manager Name | Role | Phone | [...] | [place] | [place] [address] | | | | | [place] [address] | | | | | | [phone] | | | +--------+ + + + [...] for comparison only - no result from [place]. | [facility] | + + + + +---------+ + + | Performing | Address | City/State/Zipcode | Phone Number | | Organization | | | | + +---------+ + + | [facility] | | | | + +---------+ + + documented in this encounter Visit Diagnoses Not on filedocumented in this encounter"
--- OUTSIDE RECORDS SUMMARY | ~2020-03-21 | XMS | Encounter Summary ---
Demographics + + + | Address | [address] | | | [place] [address] | + + + | Home Phone [...] + | Author | [facility] | | | and Kamaljitana | + + + | Organization | [facility] | | | and [place] | + + + | Address | Unknown | + + + | Phone | Unavailable | + + + Support + + + + + | Name | Relationship | Address | Phone | + + + + + | India Tilley | ECON | [phone] | | | | | [place], [place] | | | | | [address] | | + + + + + [...] Team Providers + +------+ + | Care Software Engineer Advisor Name | Role | Phone | + +------+ + | Renato Pierson | PCP | | + +------+ + Encounter Details +--------+ + + + + | Date | Type | Department | Care Team | Description | +--------+ + + + + | 10/23/ | Documentati | [facility] | Gopi Muñoz | | | 2020 | on | NEPHROLOGY [address] | M, DO [address] | | | | | [address] | [address] [place] | | | | | [place], [place] | [place] [address] | | | | | [address] | [phone] | | | | | [phone] | | | +--------+ + + + [...] + + + | Blood Pressure | 110/61 | 10/23/2019 1:08 PM | | | | | PST | | + + + + + | Pulse | - | - | | + + + + + | Temperature | 36.7 C (98 F) | 10/23/2019 1:08 PM | | | | | PST [...] encounter Progress Notes Gopi Muñoz DO - 10/23/2019 11:59 PM PST Subjective: DIALYSIS NOTE Patient ID: Estefani Tilley is a 74 y.o. female. 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 He does appear to be doing somewhat better with her scheduled attendanc e in the last 8weeks, although adherence to treatment schedule was a problem in the past. S he denies fever, chills, cough, weight loss. She still has larger than recommended intradia lytic weight gains. PAST MEDICAL HISTORY: 1. ESRD 2 diabetic glomerulosclerosiswith the patient beginning Inpt HD in 018and then was DC to [facility] at [place], [place]. Unfortunat brandy, she has had intermittent [...] Outpatient Medications Marked as Taking for the 10/23/19 encounter (Documentation) with Cyril Muñoz, DO Medication Sig Dispense Refill albuterol [...] epoetin karthik (EPOGEN) 10,000 units/mL injection Inject 4,000 Units into the vein Three [...] to my stomach". Naprosyn [Naproxen] Objective: BP 110/61 | Temp 36.7 C (98 F) EDW 75.5 kg Physical Exam Heart: Regular rate and rhythm with no S3, S4, murmur or rub. Lungs: CTA bilaterally. No rales or wheezes. Abdomen: soft, obese, nontender, NABS. Extremities: 2-3+ edema, (+) 5.5 mm AVF RUE, with good bruit. LAB: BUN 41, Cr 6.13, K+ 6.3, HCO3 25, HbA1c 6.2%, albumin 3.1, Ca++ 7.5, P04 9.3, PTH 44 8, Hb 11.4, T sat =11%, ferritin 282, spKT/V = 1.27 Assessment: 1. ESRD --her adequacy meets but is not robust. However, she refuses to increase treatme nt time any longer than 3 hours, thrice weekly. I have discussed with her at length previou kenneth that she would be better suited on 4 hours but mentally she cannot tolerate full treatme nts weekly due to restlessness. 2. Hypertension--this is improved last 60 days. 3. Anemia 2 to CKD-- has responded well to EPO in the last 90 days. Will give her 100 mg of Venofer IV x10 doses to optimize her T sat. 4. Nutrition--not sure what her home environment is? I this could be related to her food choices but possibly under dialysis as well with lack of 4-4 treatments recommended for h er circumstances? However she is pleasantly coming more often on a weekly basis. 5. Type 2 DM-- fairly good control on diet therapy. 6. CKD/MBD--suboptimal control historically. He states that she does not like to follow dietary restrictions long-term. 7. Hypothyroidism--she needs a repeat TSH. Unclear if she is seeing her Primary Provider? Plan: 1. I reviewed with DN her lab, albumin and spKT/V. 2. She is sensitive about discussing longer treatment schedules, weekly. However in an id eal world this would benefit her. 3. We will give her a course of supplemental parenteral iron, divided in 10 doses to optim ize her hemoglobin and T Sat. 4. She Will Be Rechecked in 2 Weeks. Electronically signed by Gopi Muñoz DO. 11/19/19 1:05 PM CC: [facility], [place] [facility], [place], [place]. document ed in this encounter Plan [...]
--- OUTSIDE RECORDS SUMMARY | ~2020-03-21 | XMS | Encounter Summary ---
Demographics + + + | Address | [address] | | | [place] [address] | + + + | Home Phone | | + + + | Preferred Language | Unknown | + + + | Marital Status | Single | + + + | Rastafari Affiliation | Unknown | + + + | Race | Unknown | + + + | Ethnic Group | Unknown | + + + Author + + + | Author | [facility] | | | and [place] | + + + | Organization | [facility] | | | and [place] | + + + | Address | Unknown | + + + | Phone | Unavailable | + + + Support + + + + + | Name | Relationship | Address | Phone | + + + + + | India Tilley | ECON | [phone] | | | | | [place], [place] | | | | | [address] | | + + + + + [...] Providers + +------+ + | Care Airport Representative Name | Role | Phone | [...] | Nephrology | Diagnoses | Unknown, | Toni, | | | | | ESRD (end | Practitioner | Gopi Roman DO | | | | | stage renal | , MD Bear | [address] | | | | | disease) | Phone: | [address] | | | | | ([facility]) | | [address] | | | | | Procedures | Fax: | [place], | | | | | [place] OFFICE | | [place] [address] | | | | | OUTPATIENT | | Phone: | | | | | VISIT 25 | | [phone] | | | | | MINUTES | | Fax: | | | | | | | [phone] | +--------+--------+ + + + + Encounter Details +--------+ + + + + | Date | Type | Department | Care Team | Description | +--------+ + + + + | 05/11/ | Off-Site | [facility] [place] | Gopi Muñoz | ESRD (end stage | | 2019 | Visit | NEPHROLOGY [address] | DO Jessie [address] | renal disease) on | | | | [address] | [address] [place] | dialysis (HCC) | | | | [place], [place] | [place] [address] | (Primary Dx) | | | | [address] | [phone] | | | | | [phone] | | | +--------+ + + + [...] Gopi Muñoz DO - 2019 12:00 PM [id number] sig javi by Gopi Muñoz DO at 2019 8:58 PM PDT documented in this encounter Progress Notes Gopi Muñoz DO - 2019 12:00 PM PDT Subjective: DIALYSIS NOTE Patient ID: Estefani Tilley is a 74 y.o. female. HPI Comments: I inadvertently missed Estefani on dialysis rounds at [facility] on 05/08/2019. 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 There has been a great deal of confusion about her outpatient antibiotics, and hypertension regimen, therefore, I asked her to my office today. Apparently she was discharged from [facility] on 03/31/2019 with acute low back pain, fluid collection and a diagnosis of T11-T12 verteb ral discitis/osteomyelitis. CT-guided aspiration/biopsy did not reveal an organism. Theref ore she was discharged on 03/31 on outpatient IV Vanco, 500 mg, Q. HD treatment MWF, and IV cefepime daily through 05/04/2019. I was called by the [facility] staff that there was concern w darrianher she should go 1 more week, due [...] she verball y agrees to go to [facility], [place], and orange picker machine operator the meds. (She does appear to a mbulate independently with only a cane for light assistance). PAST MEDICAL HISTORY: 1. ESRD 2 diabetic glomerulosclerosiswith the patient beginning Inpt HD in 018and then was DC to [facility] at [place], [place]. Unfortunat brandy, she has had intermittent [...] get her back to Dr. Jessie Jansen, [facility], [place]. Will repeat one more ESR [...] of her case will make contact with Dr. Blaine Jansen, [place], as above. Will DC outpatient IV antibiotics at this point, as by her history she appears chronologica lly to be at 6 weeks of Rx. 2. Again, we will recheck ESR, CRP tomorrow. 3. I told her to make an effort to go to write a tonight to orange picker machine operator her meds and that she should take the first dose in each AM prior to dialysis as well. She was A&O x3 during this discussion. I think that she understands her risk of CV disease, and stroke if she does no t take her meds. 4. Will relay the above to the charge nurse at [facility], LISA Marshall by secure text. 5. My partner, Dr. Magui Moseley will check in on her in 2 weeks at [facility]. 6. Lastly she is concerned about breakthrough pain. I agreed to give her generic Vicodin 5 mg / 325 mg, 1 tab, Q 12 Hours, #40, no refill. 7. Also, Estefani and her family would like to explore whether the [facility] or [facility] are could h el transport her back and forth to the [facility] clinic for her treatments, thrice weekly. [place] states that financially this is becoming a hardship for her. Electronically signed by Gopi Muñoz DO. 05/11/19 11:02 CC: Blaine Jansen [place], [place], [facility], [place] [facility], [place], [place]. document ed in this encounter Plan [...]
--- OUTSIDE RECORDS SUMMARY | ~2020-03-21 | XMS | Encounter Summary ---
Demographics + + + | Address | [address] | | | [place] [address] | + + + | Home Phone | | + + + | Preferred Language | Unknown | + + + | Marital Status | Single | + + + | Bahai Affiliation | Unknown | + + + | Race | Unknown | + + + | Ethnic Group | Unknown | + + + Author + + + | Author | [facility] | | | and [place] | + + + | Organization | [facility] | | | and [place] | + + + | Address | Unknown | + + + | Phone | Unavailable | + + + Support + + + + + | Name | Relationship | Address | Phone | + + + + + | India Tilley | ECON | [phone] | | | | | [place], [place] | | | | | [address] | | + + + + + [...] Providers + +------+ + | Care Sales Management Trainee Name | Role | Phone | + +------+ + PCP | Unavailable | + +------+ + Encounter Details +--------+ + + + + | Date | Type | Department | Care Team | Description | +--------+ + + + + | 03/23/ | Orders Only | [facility] [place] | Jose Cruzthall, | Chronic kidney | | 2017 | | NEPHROLOGY [address] | [address] | disease, stage III | | | | [address] | [address] | (moderate) (Primary | | | | [place] | [address] [place], [place] | Dx) | | | | [address] | [address] | | | | | [phone] | | | +--------+ + + + [...] documented as of this encounter Progress Notes Dori Romero RN - 03/23/2017 2:38 PM PDTRenal Ultrasound scheduled at [facility] on 03/29/17 at 10 AM. docu mented in this encounter Plan of Treatment Not on filedocumented as of this encounter Visit Diagnoses + + | Diagnosis | + + | Chronic kidney disease, stage III (moderate) (HCC) - Primary Chronic kidney disease, | | Stage III (moderate) | + + documented in this encounter"
--- OUTSIDE RECORDS SUMMARY | ~2020-03-21 | XMS | Encounter Summary ---
Demographics + + + | Address | [address] | | | [place] [address] | + + + | Home Phone [...] + | Author | [facility] | | | and [place] | + + + | Organization | [facility] | | | and [place] | + + + | Address | Unknown | + + + | Phone | Unavailable | + + + Support + + + + + | Name | Relationship | Address | Phone | + + + + + | India Tilley | ECON | [phone] | | | | | [place], [place] | | | | | [address] | | + + + + + [...] Team Providers + +------+ + | Care Litharge Mill Operator Name | Role | Phone [...] | | | [place] | [place] [address] | | | | | [place] [address] | | | | | | [phone] | | | +--------+ + + + [...] for comparison only - no result from [place]. | [facility] | + + + + +---------+ + + | Performing | Address | City/State/Zipcode | Phone Number | | Organization | | | | + +---------+ + + | [facility] | | | | + +---------+ + + documented in this encounter Visit Diagnoses Not on filedocumented in this encounter"
--- OUTSIDE RECORDS SUMMARY | ~2020-03-21 | XMS | Encounter Summary ---
Demographics + + + | Address | [address] | | | [place] [address] | + + + | Home Phone | | + + + | Preferred Language | Unknown | + + + | Marital Status | Single | + + + | Orthodoxy Affiliation | Unknown | + + + | Race | Unknown | + + + | Ethnic Group | Unknown | + + + Author + + + | Author | [facility] | | | and [place] | + + + | Organization | [facility] | | | and [place] | + + + | Address | Unknown | + + + | Phone | Unavailable | + + + Support + + + + + | Name | Relationship | Address | Phone | + + + + + | India Campos | ECON | [id number] | | | | | [place], [place] | | | | | [phone] | | + + + + + [...] Team Providers + +------+ + | Care Merchant Miller Name | Role | Phone | + +------+ + | Dylan Jewell | PCP | | + +------+ + Reason for Visit + + + | Reason | Comments | + + + | Shortness of Breath | | + + + Auth/Cert +--------+--------+ + + + + | Status | Reason | Specialty | Diagnoses / | Referred By | Referred To | | | | | Procedures | Contact | Contact | +--------+--------+ + + + + | | | | Diagnoses | | | | | | | Pedal edema | | | | | | | End stage | | | | | | | renal | | | | | | | failure on | | | | | | | dialysis | | | | | | | (HCC) ESRD | | | | | | | (end stage | | | | | | | renal | | | | | | | disease) on | | | | | | | dialysis | | | | | | | (HCC) | | | | | | | Pleural | | | | | | | effusion on | | | | | | | left | | | | | | | Hypervolemia | | | | | | | , | | | | | | | unspecified | | | | | | | hypervolemia | | | | | | | type Type | | | | | | | 2 diabetes | | | | | | | mellitus | | | | | | | with stage 4 | | | | | | | chronic | | | | | | | kidney | | | | | | | disease, | | | | | | | with | | | | | | | long-term | | | | | | | current use | | | | | | | of insulin | | | | | | | (HCC) | | | | | | | Hypothyroidi | | | | | | | sm, | | | | | | | unspecified | | | | | | | type | | | | | | | Dyspnea, | | | | | | | unspecified | | | | | | | type | | | | | | | | | | +--------+--------+ + + + + Encounter Details +--------+ + + + + | Date | Type | Department | Care Team | Description | +--------+ + + + + | 09/18/ | Hospital | [facility] | Venkatesh Hagan | Dyspnea, unspecified | | 2019 - | Encounter | [facility] | Juan F Mancera MD | type (Primary Dx); | | | | [address] | [address] | Type 2 diabetes | | 09/21/ | | [place] [id number] | [place] | mellitus with stage | | 2020 | | [phone] | [phone] | 4 chronic kidney | | | | | | disease, with | | | | | Haris Verde MD | long-term current | | | | | [address] | use of insulin | | | | | [place] | ([facility]); ESRD (end | | | | | [address] | stage renal disease) | | | | | | on dialysis ([facility]); | | | | | | Hypervolemia, | | | | | | unspecified | | | | | | hypervolemia type; | | | | | | Hypothyroidism, | | | | | | unspecified type; | | | | | | Pleural effusion on | | | | | | left; End stage | | | | | | renal failure on | | | | | | dialysis ([facility]); | | | | | | Pedal edema; Acute | | | | | | combined systolic | | | | | | and diastolic CHF, | | | | | | NYHA class 4 ([facility]) | +--------+ + + + + Social [...] + + + | Blood Pressure | 182/71 | 09/21/2019 1:15 PM | | | | | PST | | + + + + + | Pulse | 64 | 09/21/2019 1:15 PM | | | | | PST | | + + + + + | Temperature | 36.5 C (97.7 F) | 09/21/2019 8:00 AM | | | | | PST | | + + + + + | Respiratory Rate | 18 | 09/21/2019 10:58 AM | | | | | PST | | + + + + + | Oxygen Saturation | 95% | 09/21/2019 1:15 PM | | | | | PST | | + + + + + | Inhaled Oxygen | - | - | | | Concentration | | | | + + + + + | Weight | 80.1 kg (176 lb 9.4 | 09/21/2019 4:29 AM | | | | oz) | PST | | + + + + + | Height | 172.7 cm (5' 8") | 09/19/2019 12:30 AM | | | | | PST | | + + + + + | Body Mass Index | 26.85 | 09/19/2019 12:30 AM | | | | | PST [...] documented as of this encounter Discharge Summaries Gopi Muñoz DO - 09/25/2019 11:15 AM [address] [place] [address] DISCHARGE SUMMARY GOPI MUÑOZ DO Patient: ARA CAMPOS Admitting: HARIS VERDE MR #: [id number] LOC: PT TYPE: Adm Date: 09/18/2019 : 1945 DATE OF ADMISSION: 09/18/2019 DATE OF DISCHARGE: 09/21/2019 DISCHARGE DIAGNOSES: 1. Acute dyspnea secondary to moderate left side pleural effusion and decompensated conges tive heart failure -- improved. 2. Transudative left pleural effusion on thoracentesis -- secondary to non adherence with UF and dialysis schedule. 3. 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 4. Anemia secondary to chronic kidney disease. 5. Type 2 DM requiring insulin, stable. 6. Chronic kidney disease/mineral and bone disorder(CKD/MBD) -- stable. 7. Hypothyroidism, on replacement therapy. 8. Remote osteomyelitis T11-T12 -- currently asymptomatic. 9. Recurrent pattern of non adherence with recommended treatment schedule, see above. PROCEDURE: 1. Left thoracentesis, 09/18/19: 1200 mL of straw-colored fluid, cell count, 346 wbc's, 400 0 rbc's, 96.8 percent mononuclear, 3.2 percent PMN's, pleural fluid LDH 112, pleural fluid p rotein 2.6, Gram stain and aerobic culture negative, anaerobic culture negative. 2. Hemodialysis with NxStage device. HOSPITAL COURSE: This is a pleasant, but somewhat unusual 74-year-old fema le with ESRD secondary to diabetic glomerulosclerosis, who has a documented pattern of inter mittently skipping her treatment schedule. She came to the ER complaining of shortness of b reath instead of going to her scheduled HD treatment at the [facility]. CXR showed a left-sided pleural effusion approximately 50-60% way up the left chest cavity. She was oxygenating satisfactory on room air, but very dyspneic with movement. I did interrogate the [facility] EMR, called "Luis Felipe," which showed that she did receive a dianna tment recently on 09/06, but did not receive an additional treatment until 09/12. Prior to that, she was intermittently taking only 1 treatment/week and frequently has to be signed ou t after complaining only 2 to 2.5 hours of a scheduled 4-hour treatment. It has been discus sed with her about this in the past by a couple different sets of renal teams, different arge nurses, and renal social workers. However, in light of today's condition, she was taken to radiology where she underwent left -sided thoracentesis with return of a straw-colored transudative fluid 1200 mL, which she to lerated well. There is no pneumothorax on followup films. She still had some persistent le ft pleural effusion, but she also had alveolar and interstitial edema on her CXR and 3+ skyla pheral edema. It was elected to defer her HD treatment the following day as it would requi re some low-dose heparin in the circuit and she just underwent thoracentesis a day. She was admitted to the Medical floor on telemetry. On the following day, she underwent UF of 4 kilograms, which she tolerated well. Due to staffing difficulty, she did not receive a second treatment until 48 hours later and then another 4 liters were removed over 4 hours using the NxStage device. She tolerated all this well. She did have some consistent anxiet y, which was treated with every 12 hours lorazepam as needed. However, I did discuss that I would not be in favor of using this long-term, on an outpatie nt basis for fear of dependence. She was given pulmonary toilet, IV Lasix, oral metolazone, a renal diet and some fluid rest riction. Otherwise, she did fairly well in addition to inhaled bronchodilators. She was en couraged to DC her THC smoking for 30 days and possibly indefinitely as this appears to aggr avate her dyspnea, although it helps her anxiety. She does not smoke cigarettes currently. I had a very dylan discussion with her in the presence of her family that without regular t reatments with 3 session/week, albeit I was agreeable to schedule her for 3 hours, (from 4 H rs) Wednesday -- Wednesday -- Wednesday in an attempt to compromise, although this will require th e entire 3-hour treatment, that this would help her prevent acute decompensated CHF, or skyla pheral and pulmonary edema. She was A&O x3 during this discussion, where she will try to a ttend 3 treatments per week. She was discharged on 09/21/2019. DISCHARGE DIET: High protein, < 60 mEq potassium, < 1000 mg phosphorus, < 1000 mL of fluid /day. Weight at the time of discharge = 29 kilograms. I think her dry weight is closer to 76-78 kilograms? but only time will tell. DISCHARGE MEDICATIONS: 1. Albuterol MDI 2 inhalations every 6 hours as needed. 2. Amlodipine 5 mg twice daily. 3. Enteric-coated aspirin 81 mg daily. 4. Atorvastatin 20 mg daily. 5. Nephro-Renata 1 daily. 6. Calcium acetate 667 mg before meals and at bedtime. 7. Vitamin D3 4000 units daily. 8. Clonidine TTS #3 patch every week. 9. Furosemide 160 mg twice daily. 10. Labetalol 300 mg twice daily. 11. Levothyroxine 75 mcg, daily. 12. Losartan 100 mg daily. 13. Melatonin 3 mg at bedtime as needed. 14. Olopatadine 0.1 percent, 1-2 drops both eyes twice daily. 15. Pantoprazole 40 mg daily. 16. I did give her a limited amount of tramadol 50 mg 1 every 8 hours as needed pain, #20 only, no refill due to the fact that she did have left-sided thoracentesis. Again, it was strongly recommended to Ara to attend all prescribed dialysis treatments at [facility], to prevent recurrence of fluid in her chest, pleural effusio ns, and peripheral edema. (All together a total of 55 minutes were spent completing this DC and arranging follow up a ppointments). GOPI MUÑOZ DO Dictated by GOPI MUÑOZ DO 09/25/2019 11:15:27 Transcribed on 09/25/2019 12:35:15 by in job# [id number] Confirmation #: [id number] cc: DYLAN JEWELL [place], [place]. [facility]. documented in thi s encounter Discharge Instructions Instructions Gopi Muñoz DO - . Take 160 mg furosemide, twice daily fr om here. 2. New Refills were sent to [facility]. 3. Keep your old Time at [facility] tomorrow for your HD tx. 4. Ara you Must attend all 3 HD txs per week, Every week or the fluid will recur. No way around it. You would do well to follow this closely.* documented in this encounter Medications at Time [...] this encounter Progress Notes Gopi Muñoz, - 09/20/2019 8:49 PM PST [place] [address] [place], [place] [id number] PROGRESS NOTE Pt. Name/Age/: Ara Dugan y.o. 1945 Med. Record Number: [id number] Date of admission: 09/18/2019 NEPHROLOGY HPI - Pt seen at 0800. Breathing much better. Unfortunately, due to staffing difficulty, unable to do UF today=> therefore, deferred until tomorrow. She is in good spirits. 2 view CXR shows improvement in the IS edema but persistent to minimally smaller LLL effusion? Lab Results Component Value Date POCGLU 137 (H) 09/20/2019 POCGLU 113 (H) 09/20/2019 POCGLU 97 09/20/2019 POCGLU 139 (H) 09/19/2019 EXAM: BP 130/60 | Pulse 58 | Temp 36.2 C (97.1 F) (Oral) | Resp 20 | Ht 1.727 m (5' 8") | Wt 78 kg (171 lb 15.3 oz) | SpO2 95% | BMI 26.15 kg/m Tmax 36.9 Intake/Output Summary (Last 24 hours) at 09/20/20192048 Last data filed at 09/20/2019 0830 Gross per 24 hour Intake 720 ml Output Net 720 ml Heart: Regular rate and rhythm with no S3, S4, murmur or rub. Lungs: decreased BS at the bases, scant rales both bases. Abdomen: Soft, obese, nontender, normoactive bowel sounds. Extremities: 1+ edema, clubbing, or cyanosis, SpO2: 95 % on room air LAB: Recent Labs 09/20/19 0502 NA 139 K 4.7 CL 103 CO2 27 BUN 32* CREA 4.59* GFRNONAA 9* GLU 92 CALCIUM 7.5* PHOS 6.6* MG 2.0 Recent Labs 09/19/19 0601 09/18/19 1445 WBC 5.1 5.2 HGB 10.6* 11.6 HCT 35.4 38.8 PLT 223 246 MCV 100.0 102.9* NEUPCT -- 74.0 LYMPCT -- 16.9* EOSPCT -- 3.1 IMPRESSION 1. acute decompensated CHF, with large, transudative Left pleural effusion-- overall, feel due to underdialysis, and noncompliance with her daily fluid restriction? 2. ESRD, 2 diabetic glomerulosclerosis-- will defer UF today, till early AM due to staf fing problems. 3. Hypertension-- good control. 4. Type 2 DM-- good control. 5. Anemia 2 to CKD-- on EPO, while Inpt. PLAN 1. contin high dose lasix + metolazone. 2. Pulm. toilet, nutrition, encourage ambulation. 3. Will also recheck her HbA1c, and iPTH while she is Inpt. [facility] [place], Gopi Roman DO - 09/19/2019 9:17 PM PST . [facility] [address] [address] PROGRESS NOTE Pt. Name/Age/: Ara Campos 74 y.o. 1945 Med. Record Number: [id number] Date of admission: 09/18/2019 NEPHROLOGY HPI - Pt seen at 0900 and at 1100 on NxStage with QB 350 and tolerating well. Pain better but required Percocet 5/325 mg, for relief. BP stable on PO meds. Still is w/o fever, purulent sputum or hemoptysis. Pleural fluid Cx with NGTD. Lab Results Component Value Date POCGLU 152 (H) 09/19/2019 POCGLU 120 (H) 09/19/2019 POCGLU 139 (H) 09/19/2019 POCGLU 141 (H) 09/18/2019 EXAM: BP 153/51 | Pulse 67 | Temp 36.1 C (97 F) (Axillary) | Resp 18 | Ht 1.727 m (5' 8") | Wt 78 kg (171 lb 15.3 oz) | SpO2 94% | BMI 26.15 kg/m Tmax 36.2 ( initial wt. not accurate). Intake/Output Summary (Last 24 hours) at 09/19/2019 2117 Last data filed at 09/19/2019 1554 Gross per 24 hour Intake 961 ml Output 4460 ml Net -3499 ml Heart: Regular rate and rhythm with no S3, S4, murmur or rub. Lungs: decreased BS at the bases with bibasilar rales, lower 1/4 both lungs. Abdomen: Soft, obese, nontender, normoactive bowel sounds. Extremities: 2+ edema, clubbing, or cyanosis, right arm AVF with (+) thrill. SpO2: 94 % on room air LAB: Recent Labs 09/19/19 0601 NA 141 K 5.3* CL 103 CO2 25 BUN 45* CREA 6.30* GFRNONAA 6* GLU 134* CALCIUM 7.9* PHOS 8.7* MG 1.8 Recent Labs 09/19/19 0601 09/18/19 1445 WBC 5.1 5.2 HGB 10.6* 11.6 HCT 35.4 38.8 PLT 223 246 MCV 100.0 102.9* NEUPCT -- 74.0 LYMPCT -- 16.9* EOSPCT -- 3.1 Lab Results Component Value Date BNP >5,000 (H) 09/18/2019 Pleural pro/ Spro. = 0.366 PL LDH/S LDH = 0.35 PL LDH = 45%, e.g. < 2/3 , therefore, appears c/w a transudate? IMPRESSION 1. acute decompensated CHF, with large Left pleural effusion-- No Growth on fluid. Charact eristic appear more c/w a transudative effusion, more than likely due to under dialysis, an d decompensated CHF?? 2. ESRD, 2 diabetic glomerulosclerosis-- non-adherent , historically to 3 x per weekly H D shcedule. 3. Hypertension-- good control. 4. Type 2 DM-- good control. 5. Anemia 2 to CKD-- will resuem some EPO, 3x per week for Hb maintenance. PLAN 1. She had UF/HD today with removal of 4 kg of fluid, + attempt 3 kg tomorrow. 2. I reinforced need for daily fluid restriction, and 3x weekly HD txs. 3. Repeat CXR in AM, and additional UF in AM, e.g. attempt 4 kg in AM. 4. Awaited cytology on the fluid, and again, repeat UF in AM. 5. Encourage amubalation to improve lungs function, as well. [facility] Pollo Cotton, LISA - 09/19/2019 4:35 AM PSTPatient does not want any assistance with the walker, refusing to have assistance to stand and help walk to the bathroom even though she is weak and needs the assistance. Will not staff help her wipe and walk back from the bathroom. Has been yelli ng at the staff to not wake her up to get vitals, and has refused her vitals 0315. Has repea tedly refused care, has been impolite to the staff. documented in this encounter H&P Notes Haris Verde MD - 09/18/2019 4:56 PM PSTFormatting of this note might be different from t he original. [facility] HOSPITALIST HISTORY & PHYSICAL Patient: Ara Campos : 1945: Age: 74 y.o. MedRec: [id number] Admission date: 09/18/2019 Hospital day # : 0 Physician author: Haris Verde MD Today: 09/18/2019 ASSESSMENT Active Problem, present on admission: Active Hospital Problems Diagnosis Fluid overload Non-compliance ESRD (end stage renal disease) on dialysis Essential hypertension DM (diabetes mellitus), type 2 Cerebral artery occlusion with cerebral infarction Hypothyroidism Resolved Hospital Problems No resolved problems to display. PLAN Recurrent left pleural effusion, productive cough, well appearing Pending thoracentesis Lamin appreciated Last thoracentesis 05/22/2019 1.3L procal sputum cx are pending duonebs prn ESRD ANURIC < 1cup daily Increase lasix 80PO TID to 80IV TID DiabeticGlomeruloSclerosis, anemia, hyperparathyroidism mwf partial HD compliance HTN / dyslipidemia Home Statin / labetolol /losartan /clonidine /amlodipine DM2 Decrease lantus 12 to 5 Qpm for now SSI Hypothyroid/depressed DM GS AVF Right Tspine discitis/osteomyelitis vs mass hx There are no ID notes on careeverywhere ESR CRP pending Discuss with Dr Muñoz Noncompliant Does not recall many things No shows ambulates by holding onto wall/furniture PT eval, walker DVT Prophylaxis SCD anticipate heparin w/ regular HD Diet DM cardiac 2gNaCl 1.8L fluid restrict Code Status full Disposition panchal CHIEF COMPLAINT: Short of breath HISTORY OF PRESENT ILLNESS: Ara Campos is a 74 y.o. female with a history of ESRD, presented on 09/18/2019, 1 week of SOB, did not take lasix this week, last HD Wednesday, (partial compliance 2 hours instead o f 3+hours). No malaise. Productive cough. No fever. Joints in general ache from OA. ED course: ER provider spoke w/ Dr Muñoz, ALTON tomorrow, VSS -Studies:bnp >5k -CXR left pleural effusion -Treatment: lasix 80 Relevant Chart Review 06/26/19 Nephro T11 T12 discitis/osteomyelitis lost to follow up REVIEW OF SYSTEMS: None of the following - headache/SOB/palpitations/chest pain/GERD/Nausea/vomiting/diarrhea/ leg swelling/rash/yeast infections/change in voiding/change in mood/diabetes PAST MEDICAL and SURGICAL HISTORY: Past Medical [...] W/CANNULATED SCREWS; Surgeon: Scott Koroma MD; Location: [facility] MAIN OR HYSTERECTOMY MASTECTOMY 2005 left ear NOSE SURGERY 2008 OTHER SURGICAL HISTORY Right 03/28/2019 Procedure: TUNNEL PICC LINE PLACEMENT-6fr 22cm BARD Power Line; Surgeon: Jose Jiménez MD; Location: [facility] INTERVENTIONAL RADIOLOGY REMOVAL TUNNELED CATHETER Right 04/04/[address] Stephenson SHUNT PLACEMENT/INSERTION N/A 11/08/2017 Procedure: Tunneled Hemodialysis Catheter Placement; Surgeon: Nora Leo MD; Location : [facility] MAIN OR SHUNT PLACEMENT/INSERTION Right 02/04/2018 Procedure: INSERTION SHUNT HEMODIALYSIS W/ PERMACATH; Surgeon: Heather Navarro MD; L ocation: [facility] MAIN OR VEIN SURGERY Right 01/04/2018 Procedure: Right Transposed Basilic Vein to Proximal Radial Artery; Surgeon: Santos Stephenson MD, FACS; Location: [facility] MAIN OR Patient Active Problem List [...] thoracic region Hypoxia Osteomyelitis of thoracic region HOME MEDICATIONS: PT REPORTED TAKING NOT TAKING Medication Sig Last Dose Dispense Doc. Provider acetaminophen (TYLENOL) 500 mg tablet Take 500 mg by mouth as needed for Pain. Historica l Provider, albuterol 90 mcg/puff inhaler Inhale 2 puffs into the lungs 4 times daily as needed for Sh ortness of Breath. Historical Provider, amLODIPine (NORVASC) 5 mg tablet Take 1 tablet by mouth 2 times daily. 60 tablet Nora hampton MD ARTIFICIAL TEAR SOLUTION OP Place 1-2 drops into both eyes as needed (for dry eyes). His torical Provider, aspirin 81 mg EC tablet Take 81 mg by mouth Daily. Historical Provider, atorvaSTATin (LIPITOR) 20 mg tablet Take 20 mg by mouth nightly. Historical Provider, b complex-vitamin c-folic acid (NEPHRO-RENATA) tablet Take 1 tablet by mouth Daily. Histor ical Provider, calcium acetate (PHOSLO) 667 mg capsule Take 1 capsule by mouth 3 times daily (with meals) . 180 capsule Michelle Lopez DO cetirizine (ZYRTEC) 10 mg tablet Take 10 mg by mouth Daily. Historical Provider, Cholecalciferol 4000 units TABS Take 4,000 Units by mouth Daily. Gopi Muñoz DO cloNIDine (CATAPRES) 0.3 mg/[address] 1 patch onto the skin Once a week. 4 patch Gopi Muñoz DO epoetin karthik (EPOGEN, PROCRIT) 4,000 units/mL injection Inject 0.85 mLs into the vein Thre e times a week. Patient taking differently: Inject 11,000 Units into the vein Three times a week. Gopi Muñoz DO furosemide (LASIX) 80 mg tablet Take 1 tablet by mouth Daily. Patient not taking: Reporte d on 09/18/2019 Not Taking 90 tablet Gopi Muñoz DO gabapentin (NEURONTIN) 100 mg capsule Take 2 capsules by mouth every morning. Gopi Muñoz DO Insulin Pen Needle 31G X 5 MM MISC by Does not apply route. Historical Provider, labetalol (NORMODYNE) 300 MG tablet Take 1 tablet by mouth 2 times daily. 180 tablet Cyril Muñoz, DO Lancets MISC by Does not apply route. Historical Provider, levothyroxine (SYNTHROID, LEVOTHROID) 75 MCG tablet Take 75 mcg by mouth every morning (be fore breakfast). Historical Provider, losartan (COZAAR) 100 MG tablet Take 1 tablet by mouth Daily. 30 tablet Nora Christina MD NIFEdipine (PROCARDIA XL) 90 mg ER tablet Take 1 tablet by mouth Daily. 90 tablet Gopi Muñoz, olopatadine (PATANOL) 0.1% ophthalmic solution Place 1-2 drops into both eyes 2 times maite y. Historical Provider, ondansetron (ZOFRAN) 4 mg tablet Take 1 tablet by mouth every 6 hours as needed for Nausea . 20 tablet Scott Koroma MD pantoprazole (PROTONIX) 40 mg tablet Take 40 mg by mouth every morning (before breakfast). Historical Provider, ALLERGIES: SOCIAL HISTORY: FAMILY HISTORY: Allergies Allergen Reactions Amoxicillin Other (See Comments) Patient stated she can't tolerate amoxicillin and stated its hard on her stomach. Lisinopril Pt states she does not remember what was the reaction she had to lisinopril. I asked her if it gave her a cough and she said "I cant remember, maybe it made me sick to my stomach". Naprosyn [Naproxen] reports that she has been smoking. She has never used smokeless tobacco. She reports that she does not drink alcohol or use drugs. family history includes Cancer in her sister; Diabetes in some other family members. VITAL SIGNS: Temp: 36.8 C (98.3 F), Pulse: 69, Resp: 20, BP: 164/62, SpO2 93 % on room air at flow r ate L/min Temp Min: 36.8 C (98.3 F) Max: 36.8 C (98.3 F) PHYSICAL EXAMINATION: On room air Constitutional NAD / sitting upright Eye PERRL / EOMI / No scleral icterus, no injected eyes ENT hearing intact / no sinus congestion / NO THRUSH Neck supple Lymph node No overt lymphadenopathy Cardiac S1 S2 present / RRR / no MRG Lung Auscultation CTAB / no RRW / Respiratory effort not labored/using accessory muscles sp eaking in full sentences without difficulty Abdomen active BS, Soft, NT / ND, no overt hernias Psych Mood and affect normal, alert and oriented x3 Neuro Moves all extremities, symmetrical face, no dysarthria Extremities No arvizu edema bilateral Skin No overt rash / no jaundice / NO INTERTRIGO DIAGNOSTIC STUDIES: Lab results last 24 hours Recent Results (from the past 24 hour(s)) CBC with Differential Collection Time: 09/18/19 2:45 PM Result Value Ref Range WBC 5.2 4.0 - 11.0 K/uL RBC 3.77 3.70 - 5.20 M/uL Hemoglobin 11.6 11.5 - 16.0 g/dL Hematocrit 38.8 34.0 - 47.0 % MCV 102.9 (H) 83.0 - 101.0 fL MCH 30.8 28.0 - 35.0 pg MCHC 29.9 (L) 32.0 - 36.0 g/dL RDW-CV 16.4 (H) <15.0 % RDW-SD 62.2 (H) 35.1 - 46.3 fL Platelet Count 246 140 - 440 K/uL MPV 10.4 6.5 - 12.4 fL % Neutrophils 74.0 45.0 - 82.0 % % Lymphocytes 16.9 (L) 20.0 - 45.0 % % Monocytes 4.8 4.0 - 12.0 % % Eosinophils 3.1 0.0 - 5.0 % % Basophils 0.8 0.0 - 1.0 % % Immature Granulocytes 0.4 0.0 - 0.4 % Absolute Neutrophils 3.87 1.80 - 8.50 K/uL Absolute Lymphocytes 0.88 0.60 - 3.20 K/uL Absolute Monocytes 0.25 0.00 - 1.00 K/uL Absolute Eosinophils 0.16 0.00 - 0.40 K/uL Absolute Basophils 0.04 0.00 - 0.10 K/uL Absolute Immature Granulocytes 0.02 0.00 - 0.03 K/uL % nRBC 0 0 - 2 per 100 WBCs Absolute nRBC 0.00 0.00 - 0.01 K/uL Comprehensive Metabolic Panel Collection Time: 09/18/19 2:45 PM Result Value Ref Range Na 140 136 - 145 mmol/L K 5.1 3.4 - 5.1 mmol/L Cl 103 98 - 107 mmol/L CO2 25 20 - 31 mmol/L Anion Gap 12 3 - 16 mmol/L Glucose 196 (H) 60 - 106 mg/dL BUN 44 (H) 9 - 23 mg/dL Creatinine 6.03 (H) 0.55 - 1.02 mg/dL eGFR if not 7 (L) >=60 mL/min/1.73m2 Calcium 8.1 (L) 8.7 - 10.4 mg/dL Albumin 3.5 3.2 - 4.8 g/dL Bilirubin Total 0.2 (L) 0.3 - 1.2 mg/dL Total Protein 7.1 5.7 - 8.2 g/dL AST 15 0 - 34 U/L ALT 14 10 - 49 U/L Alkaline Phosphatase 70 46 - 116 U/L Globulin 3.6 2.1 - 3.8 g/dL Albumin/Globulin Ratio 1.0 0.8 - 1.9 BUN/Creatinine Ratio 7.3 Troponin I Collection Time: 09/18/19 2:45 PM Result Value Ref Range Troponin I 0.11 (H) <0.06 ng/mL Protime INR Collection Time: 09/18/19 2:45 PM Result Value Ref Range Prothrombin Time 15.8 (H) 11.3 - 13.9 seconds INR 1.3 (H) 0.9 - 1.1 B Type Natriuretic Peptide Collection Time: 09/18/19 2:45 PM Result Value Ref Range BNP >5,000 (H) <100 pg/mL ECG 12 lead Collection Time: 09/18/19 2:59 PM Result Value Ref Range INTERPRETATION TEXT Not Confirmed Micro results Microbiology Results (72 hrs) No results found for the last 72 hours. Radiology results Xr Chest 2 Vws Result Date: 09/18/2019 XR CHEST 2 VIEWS 09/18/2019 2:51 PM HISTORY: sob. COMPARISON: 05/21/2019 Findings: Opacificatio n of the left mid and lower lobe are again pleural effusion with adjacent atelectasis or con solidation. Enlargement of the central pulmonary vasculature. Heart is enlarged. Aortic calc ifications are present. No evidence of pneumothorax. No acute osseous findings. Cardiomegaly with likely pulmonary edema. Opacification of the left mid and lower lung zone s likely representing pleural effusion with adjacent atelectasis or consolidation. Dictated and Signed by: Itz Madsen MD Electronically signed: 09/18/2019 3:43 PM Electronically signed by: Haris Verde MD 09/18/2019 4:56 PM [facility] initial inpatient hospital time greater than 70 minutes with 1/2 spent on face to face dutch e for assessment and plan -Medical Decision Maker Patient. Assessment and Plan were discussed with patient -[facility] Documentation I expect this patient will be hospitalized for 2 or more days and expect the post-hospital plan to be home. -I reviewed relevant imaging, EKG and old records. documented in this encou nter Consult Notes Gopi Muñoz, DO - 09/18/2019 7:59 PM PST [facility] [address] [place] [address] NEPHROLOGY CONSULT Pt. Name/Age/: Ara Campos 74 y.o. 1945 Med. Record Number: [id number] Date of admission: 09/18/2019 Reason for consultation: ESRD and Left pleural effusion Referring Provider: Levi Hagan MD HPI: Asked to follow along on this pleasant, but somewhat eccentric 74 YO female with ESRD who has a documented pattern of intermittently skipping her scheduled hemo dialysis treatments. Today she came to the ER at [facility] complaining of dyspnea. A 2 view CX R showed a moderate size left pleural effusion approximately 50-60% of the left chest cavity . She underwent thoracentesis with removal approximate 1200 cc of orange-colored fluid per radiology.she denies fever, chills, hemoptysis, purulent sputum. O2 sat's have been stable on RA here in the ER. I did open the [facility] EMR, "[facility]," and note that she did have a pause the week of and performed a treatment on 09/06 but did not do an additional treatment until 09/12. I nitially, 2 weeks prior to that appears from the treatment data and [facility] that she was dialyzing only approximately on Mondays (or , 1 treatment/week). I have had personal conv ersations with the Charge Nurse at [facility], Zari Day RN, which have corrobor ated this pattern in the past. She does appear to be taking her meds however, as she does appear to be normotensive today and not with hypertensive urgency.she denies smoking cigarettes but states that she intermit tently smokes THC, at times Q 48 hours. PAST MEDICAL HISTORY: 1. ESRD 2 diabetic glomerulosclerosiswith the patient beginning Inpt HD in 018and then was DC to [facility] at [place], [place]. Unfortunat brandy, she has had intermittent periods where she would take unexplained Holidays form her HD txs, AMA, and then, return. However, she states that she has been attending all prescribed t xs recently and dialyzed last Wed., 12/02/18. 2. Type 2 DM x 30 years per the pt with retinopathy, nephropathy, and possibly neuropathy . 3. Hypertension x 10 years per the pt. 4.Anemia 2 to CKD treated with EPO, and IV Fe. 5. CKD/MBD2to CKD treated with Renvela, and Hectorol in the past. However, she had intermittently been noncompliant with her Renvela and other meds. 6. Hyperlipidemia treated with a statin Rx, unknownduration per the pt. 7. Hypothyroidism, of unknown duration, she is not completely sure. 8. Situational depression--however she refuses to take any SSRI's. 9. Chronic homelessness, although her relatives have been very kind to her. PAST SURGICAL HISTORY: 1. DAYNE with incidental appendectomy, in her "30's." 2. Tonsillectomy, ~age 11. 3. Laser Surgery , both eyes, last 2015, per the pt. 4. Construction of Right arm AVF, 01/04/2018,Dr. Santos Stephenson. 5. Placement of tunneled Right IJ HD catheter,11/08/2017,Dr. Nora Leo. Outpatient Medications Marked as Taking for the 09/18/19 encounter (Hospital Encounter) Medication Sig Dispense Refill acetaminophen (TYLENOL) 500 [...] by mouth nightly. b complex-vitamin c-folic acid (NEPHRO-RENATA) tablet Take [...] the vein Three time s a week.) gabapentin (NEURONTIN) 100 mg capsule Take 2 [...] me sick to my stomach". Naprosyn [Naproxen] SOCIAL HISTORY: Smoking: Today, she denies any cigarettes, but additionally, smokes cannabis almost daily t o Q 48 hours. ETOH: denies. Single; Currently is staying with her sister who has a masters degree in nursing but is r etired. Regardless, she has very frequent absenteeism from the [facility]. FAMILY HISTORY: Father: in his 70's of [...] pharyngitis . Cardiovascular: She denies chest pain, palpitations; Also see HPI and PULM. ROS. Pulmonary: She admits to worsening FRANK, orthopnea and PND. GI: She denies nausea vomiting, epigastric pain, [...] depression, or suicidal ideation. PHYSICAL EXAMINATION: BP 142/87 | Pulse 65 | Temp 36.8 C (98.3 F) (Oral) | Resp (!) 0 | SpO2 98% General: This is a slender, uncomfortable appearing 74 year-old female who is alert and oriented x3, and intermittently moaning. HEENT: Normocephalic. Pupils are 4 mm / 4 mm and reactive. EOM. Funduscopic exam not perfor med posterior pharynx is clear, without injection. Neck: JVP's are 10-12 cm at 45, (to the angle of the jaw), no thyromegaly. Cardiovascular: Regular rate and rhythm, with grade 1/6 mid YADI at LSB, intermittent S3, no S4 or rub Lungs: (+) Fine inspiratory rales lower 1/4 on the right, 1/3 on the left, with decreased BS on the left, no wheezes. Abdominal: Soft, flat, nontender, NABS, no organomegaly, no guarding, no bruit. Extremities: 2-3+ edema, no clubbing, cyanosis, or asterixis. (+) Patent AVF with positive thril l, left upper extremity. Neurological: Nonfocal, nonlateralizing. SpO2: 98 % on room air CXR: (+) CM, moderate left pleural effusion cannot exclude LLL infiltrate, volume loss, so me bilateral alveolar interstitial infiltrates?, some hyperinflation? Lab Results Component Value Date NA 140 09/18/2019 K 5.1 09/18/2019 CL 103 09/18/2019 CO2 25 09/18/2019 BUN 44 (H) 09/18/2019 CREA 6.03 (H) 09/18/2019 GFRNONAA 7 (L) 09/18/2019 GLU 196 (H) 09/18/2019 CALCIUM 8.1 (L) 09/18/2019 PHOS 4.7 05/25/2019 MG 2.3 05/21/2019 Lab Results Component Value Date WBC 5.2 09/18/2019 HGB 11.6 09/18/2019 HCT 38.8 09/18/2019 PLT 246 09/18/2019 MCV 102.9 (H) 09/18/2019 NEUPCT 74.0 09/18/2019 LYMPCT 16.9 (L) 09/18/2019 EOSPCT 3.1 09/18/2019 IMPRESSION 1. Acute dyspnea with moderate size left pleural effusion--differential diagnosis include s decompensated CHF, parapneumonic effusion from bronchopneumonia, cannot exclude bronchogen ic carcinoma with effusion. 2. ESRD from diabetic glomerulosclerosis--on outpatient HD. However, this is hampered by recurrent absenteeism. 3. Anemia 2 to CKD--responding to EPO. 4. Type 2 DM, requiring insulin--good control today. 5. CKD/MBD-- will recheck a iPTH. 6. Hypothyroidism--previously on replacement therapy. 7. Remote osteomyelitis of Q39-S03--[id number] patient was lost to follow-up both wit h ID and neurosurgery. She denies back pain today. PLAN 1. I concur with thoracentesis and fluid analysis for cell count, differential, protein, L DH, AFB, fungal, bacterial cultures and stains. 2. Will give her high-dose Lasix/metolazone today. As the HD circuit requires regional he parinization will defer her HD treatment with UF till tomorrow a.m. given the above reasons, s/p thoracentesis. 3. Long-term, counseling therapy with 2 sets of Renal TRAIN RESERVATION CLERK's, Nursing Staff, her Charge Trey ses, PCP's have been unable to impact her pattern of non adherence with her treatment schedu le. Nevertheless, I again emphasized this evening, in the presence of her son, Azael, that without consistent HD/UF 4 hours, thrice weekly she would never be able to be free from de compensated CHF, and pulmonary/peripheral edema. She was A&O x3 during this discussion. 4. In the short-term, will attempt to ascertain a better diagnosis for the left pleural ef fusion today. 5. I greatly appreciate the Hospitalist Service help with her admission. [facility] CC: [facility], [place], [place]. [place] Mariah GoldenDIPESH Pozo MD documented in thi s encounter ED Notes Venkatesh Hagan MD - 09/18/2019 6:27 PM PSTFormatting of this note might be d ifferent from the original. [facility] Ara Campos Emergency Department Encounter Note [address] [place] [address] PCP:Dylan Jewell, DIPESH [phone] eMERGENCY dEPARTMENT eNCOUnter CHIEF COMPLAINT Chief Complaint Patient presents with Shortness of Breath TRIAGE ED Triage Notes, ED Triage Notes Rodrigue Curran RN 09/18/2019 14:02 Pt reports increasing shortness of breath and swelling over last week. Reports she has not had diuretic in about 5 days due to confusion on what she should be taking. LAst dialysis Fr negin Campos is a 74 y.o. female who presents with increasing shortness of breath and some significant swelling to her lower extremities bilaterally. Patient has been going to d ialysis. She states she is continued to gain weight even on dialysis. She is here for furt her evaluation. Her last dialysis state was 3 days ago. She also has significant weakness and swelling to her legs. She is here for further evaluation. PAST MEDICAL HISTORY Past Medical History: Diagnosis Date Anemia Arthritis Back pain Breast cancer (HCC) s/p left mastectomy in 2004, s/p chemotherapy Cancer (HCC) Diabetes (HCC) Heart disease Hemodialysis patient (HCC) mon-wed-fri History of blood clots Hypercholesteremia Hypertension Hypothyroidism Renal failure Seasonal allergies Stroke (cerebrum) (HCC) SURGICAL HISTORY Past Surgical History: Procedure Laterality Date APPENDECTOMY EYE SURGERY 2009 HIP SURGERY Right 12/04/2018 Procedure: ORIF HIP W/CANNULATED SCREWS; Surgeon: Scott Koroma MD; Location: [facility] MAIN OR HYSTERECTOMY MASTECTOMY 2006 left ear NOSE SURGERY 2009 OTHER SURGICAL HISTORY Right 03/28/2019 Procedure: TUNNEL PICC LINE PLACEMENT-6fr 22cm BARD Power Line; Surgeon: Jose Jiménez MD; Location: [facility] INTERVENTIONAL RADIOLOGY REMOVAL TUNNELED CATHETER Right 04/04/[address] Stephenson SHUNT PLACEMENT/INSERTION N/A 11/08/2017 Procedure: Tunneled Hemodialysis Catheter Placement; Surgeon: Nora Leo MD; Location : [facility] MAIN OR SHUNT PLACEMENT/INSERTION Right 02/04/2018 Procedure: INSERTION SHUNT HEMODIALYSIS W/ PERMACATH; Surgeon: Heather Navarro MD; L ocation: [facility] MAIN OR VEIN SURGERY Right 01/04/2018 Procedure: Right Transposed Basilic Vein to Proximal Radial Artery; Surgeon: Santos Stephenson MD, FACS; Location: [facility] MAIN OR CURRENT MEDICATIONS MORTGAGE LOAN COMPUTATION CLERK Home Medications Medication Sig acetaminophen (TYLENOL) 500 mg tablet Take 500 [...] by mouth nightly. b complex-vitamin c-folic acid (NEPHRO-RENATA) tablet Take 1 tablet by mouth Daily. calcium acetate (PHOSLO) 667 mg capsule Take 1 capsule by mouth 3 times daily (with christa ls). cetirizine (ZYRTEC) 10 mg tablet Take 10 mg by mouth Daily. Cholecalciferol 4000 units TABS Take 4,000 Units by mouth Daily. cloNIDine (CATAPRES) 0.3 mg/[address] 1 patch onto the skin Once a week. epoetin karthik (EPOGEN, PROCRIT) 4,000 units/mL injection Inject 0.85 mLs into the vein T hree times a week. (Patient taking differently: Inject 11,000 Units into the vein Three time s a week.) furosemide (LASIX) 80 mg tablet Take 1 tablet by mouth Daily. (Patient not taking: Repo rted on 09/18/2019) gabapentin (NEURONTIN) 100 mg capsule Take 2 [...] tablet Take 1 tablet by mouth Daily. NIFEdipine (PROCARDIA XL) 90 mg ER tablet Take 1 tablet by mouth Daily. olopatadine (PATANOL) 0.1% ophthalmic solution Place 1-2 drops into both eyes 2 times d aily. ondansetron (ZOFRAN) 4 mg tablet Take 1 tablet by mouth every 6 hours as needed for Ziggy sea. pantoprazole (PROTONIX) 40 mg tablet Take 40 mg by mouth every morning (before breakfas t). ALLERGIES Allergies Allergen Reactions Amoxicillin Other (See Comments) Patient stated she can't tolerate amoxicillin and stated its hard on her stomach. Lisinopril Pt states she does not remember what was the reaction she had to lisinopril. I asked her if it gave her a cough and she said "I cant remember, maybe it made me sick to my stomach". Naprosyn [Naproxen] FAMILY HISTORY Family History Problem Relation Age of Onset Diabetes Other grandfather Diabetes Other grandmother Cancer Sister SOCIAL HISTORY Social History Socioeconomic History Marital status: Single Spouse name: Not on file Number of children: Not on file Years of education: Not on file Highest education level: Not on file Tobacco Use Smoking status: Current Every Day Smoker Smokeless tobacco: Never Used Substance and Sexual Activity Alcohol use: No Alcohol/week: 0.0 standard drinks Drug use: No REVIEW OF SYSTEMS Please see HPI, All systems negative except as marked. Twelve point review of system comp leted my me. PHYSICAL EXAM VITAL SIGNS: Temp: 36.8 C (98.3 F) Pulse: 74 Resp: 26 SpO2: 92 % BP: 163/74 Constitutional: Well developed, Well nourished, Non-toxic appearance. HENT: Normocephalic, Atraumatic, Bilateral external ears normal, Oropharynx moist, No oral exudates, Nose normal. Neck- Normal range of motion, No tenderness, Supple, No stridor. Eyes: PERRL, EOMI, Conjunctiva normal, No discharge. Respiratory: Normal breath sounds, No respiratory distress, No wheezing, No chest tenderne ss. Cardiovascular: Normal heart rate, Normal rhythm, No murmurs, No rubs, No gallops. GI: Bowel sounds normal, Soft, No tenderness, No masses, No pulsatile masses. Musculoskeletal: Intact distal pulses, 4 + lower extremity edema, No tenderness, No cyanos is, No clubbing. Good range of motion in all major joints. No tenderness to palpation or ashleigh or deformities noted. Neurologic: Alert & oriented x 3, Normal motor function, Normal sensory function, No focal deficits noted, no facial assymetry noted. Equal salvage winder in all extremities EKG Interpretation Interpreted by emergency department physician Rhythm: normal sinus Rate: 72 Melvin: RBBB Ectopy: none Conduction: P wave normal, normal QRS ST Segments: normal no elevation, depression, or prolongation. T Waves: no acute change Q Waves: none RADIOLOGY Xr Chest 2 Vws Result Date: 09/18/2019 XR CHEST 2 VIEWS 09/18/2019 2:51 PM HISTORY: sob. COMPARISON: 05/21/2019 Findings: Opacificatio n of the left mid and lower lobe are again pleural effusion with adjacent atelectasis or con solidation. Enlargement of the central pulmonary vasculature. Heart is enlarged. Aortic calc ifications are present. No evidence of pneumothorax. No acute osseous findings. Cardiomegaly with likely pulmonary edema. Opacification of the left mid and lower lung zone s likely representing pleural effusion with adjacent atelectasis or consolidation. Dictated and Signed by: Itz Madsen MD Electronically signed: 09/18/2019 3:43 PM LAB Labs Reviewed CBC WITH DIFFERENTIAL - Abnormal; Notable for the following components: Result Value MCV 102.9 (*) MCHC 29.9 (*) RDW-CV 16.4 (*) RDW-SD 62.2 (*) % Lymphocytes 16.9 (*) All other components within normal limits COMPREHENSIVE METABOLIC PANEL - Abnormal; Notable for the following components: Glucose 196 (*) BUN 44 (*) Creatinine 6.03 (*) eGFR if not 7 (*) Calcium 8.1 (*) Bilirubin Total 0.2 (*) All other components within normal limits TROPONIN I - Abnormal; Notable for the following components: Troponin I 0.11 (*) All other components within normal limits PROTIME INR - Abnormal; Notable for the following components: Prothrombin Time 15.8 (*) INR 1.3 (*) All other components within normal limits B TYPE NATRIURETIC PEPTIDE - Abnormal; Notable for the following components: BNP >5,000 (*) All other components within normal limits C-REACTIVE PROTEIN - Abnormal; Notable for the following components: CRP 16.20 (*) All other components within normal limits LACTATE DEHYDROGENASE - Abnormal; Notable for the following components: LDH TOTAL 320 (*) All other components within normal limits SEDIMENTATION RATE - Normal CULTURE, BODY FLUID, STERILE, SMEAR, WITH ANAEROBES Narrative: The following orders were created for panel order Culture, Body Fluid, Sterile, Smear, wit h Anaerobes. Procedure Abnormality Status --------- ------ Culture, Body Fluid, Aerobe[[id number]] Culture, Body Fluid, Bre...[[id number]] Please view results for these tests on the individual orders. CULTURE, BODY FLUID, AEROBE CULTURE, BODY FLUID, ANAEROBE CULTURE, RESPIRATORY, LOWER, SMEAR PROCALCITONIN CELL COUNT WITH DIFFERENTIAL, BODY FLUID PROTEIN, BODY FLUID LACTATE DEHYDROGENASE, BODY FLUID ED COURSE & MEDICAL DECISION MAKING Pertinent Labs & Imaging studies reviewed. (See chart for details) Nursing notes reviewed. Patient with significant fluid overload status patient with rapid edema to the lower extrem ities bilaterally she also has a left pleural effusion. Patient with dyspnea and shortness of breath. She appears to need significant diuresis. She is due to what appears to be a ne w left lung effusion she appears to prior having her lung drained as well. Patient's been d iscussed with Dr. Matt on-call coordinator of genetic services. He recommends diuresis overnight and hemod ialysis tomorrow. Patient's been discussed with interventional radiologist concerning drain ing her left pleural effusion. At this point patient is in guarded condition she is to be a dmitted to the hospitalist further treatment. FINAL IMPRESSION 1. Type 2 diabetes mellitus with stage 4 chronic kidney disease, with long-term current use of insulin ([facility]) 2. ESRD (end stage renal disease) on dialysis ([facility]) 3. Hypervolemia, unspecified hypervolemia type 4. Hypothyroidism, unspecified type Portions of this chart may have been created with [employer] voice recognition software. Occasi onal wrong-word or sound-alike substitutions may have occurred due to the inherent mckeon itations of voice recognition software. Please read the chart carefully and recognize, using context, where these substitutions have occurred Venkatesh Hagan MD 09/18/19 1832 Venkatesh Hagan MD 09/18/19 1859 Rodrigue Ferro RN - 09/18/2019 2:01 PM PSTPt reports increasing shortness of breath and swellin g over last week. Reports she has not had diuretic in about 5 days due to confusion on what she should be taking. LAst dialysis Wednesday documented in this encounter Miscellaneous Notes Plan of Care - Vernon Miller, RN - 09/21/2019 3:22 PM PSTMrs Jarek has completed dialy sis today and discharges to home with son. She is without distress at the time of discharge. lan of Care - Margaret Dempsey MSW - 09/21/2019 3:18 PM PST Problem: Discharge Planning Goal: Patient's discharge needs will be identified in a timely manner Outcome: Met Goal: Patient will be discharged in a safe manner Outcome: Met This case consultant went to visit with Ara after PTLucy, states that she would like a 4WW and she thinks it would be beneficial for her to have one. Called [facility] and they have a 4WW available. Went to speak with patient about a 4WW. She states that she had a walker in the past [facility] l [facility] but when [facility] she left it there, went back to et it, and they said they didn't have it. She is unsure if that walker was billed under her Medicare. She would like to get the walker from [facility] and her family member in the room sa id they would stop there to get it after they leave here. Ara had no other questions or concerns. Called [facility] and spoke with the [facility] RN, Linh. She states that they are w ell aware of the patient. She will follow up with Ara tomorrow and will plan on doing a h ome visit. A discharge summary will be faxed to [facility] once received. [phone]. PLAN: Home with family, resource for 4WW given. Electronically signed by: JENNIFER Perkins 09/21/2019 3:34 PM lan of Care - Lucy Loya PT - 09/21/2019 2:30 PM PSTFormatting of this note eric ht be different from the original. Physical Therapy Plan of Care Initial Evaluation Note Summary: Ara presents to physical therapy with gait instabilty with admisison for flui d overload. Objective exam reveals impairments with aerobic capacity/endurance, gait, locom otion, and balance, Pt presents up in bathroom with FWW and was observed to walk in room for short distance. Pt requested trial of 4WW with which she used in hallway with good techniq ue stating she would prefer using 4WW vs FWW. Pt requested CW arrange for 4WW for pt from [facility]reola. RN cleared patient for participation in therapy. Patient was agreeable to PT. Patient parti cipated without adverse reaction. RN debriefed on PT session and patient status. Recommended mobility with nursing: into the hallway 4 Wheel Walker supervision / set-up Barriers to discharge and functional limitations include decreased insight into safety and deficits, decreased functional activity tolerance, and medical status. Ara will benefit from therapeutic intervention to address impairments and increase safet y and independence with activities necessary for safe discharge. Refer below for specific d etails regarding functional levels. Precautions/Limitations: falls Previous Level of Function: Transferring: independent Ambulation: independent Toileting: independent Bathing: independent Dressing: independent Eating: independent Communication: understands/communicates without difficulty Swallowin-->swallows foods/liquids without difficulty Equipment Currently Used at Home: 2 wheeled walker (FWW) Prior Functional Level Comment: I with ADLs and gait with or without FWW which pt states wa s left at SNF Potential available assistance at discharge: Living Environment/Accessibility: Lives With: sibling(s) Living Arrangements: house Home Accessibility: no concerns Number of Stairs to Enter Home: 0 Number of Stairs Within Home: 0 Financial Concerns: none Transportation Available: family or friend will provide Patient/Family s Goals: home with assist Rehabilitation potential: good, to achieve stated therapy goals Physical Therapy Discharge Recommendations are: Recommended discharge disposition: home with assist Post discharge physical therapy recommendation: Equipment Recommendations: Planned Interventions: balance training, gait training Recommended Frequency: Patient Status/Goals: Reflects last filed data and may be from multiple contributors. Gait pt is impulsive and ambulates with increased velocity, not receptive to cues to slow down Level of Whitley: supervised Assistive Device: 4 wheeled walker (4WW), 2 wheeled walker (FWW) Distance (feet): 2 x 150 ft Transfers Pt demonstrated transfer to and from 4WW Sit-Stand, Level of Whitley: modified independent Stand-Sit, Level of Whitley: modified independent [id number], Assistive Device: 2 wheeled walker (FWW), 4 wheeled walker (4WW) Safety Issues: balance decreased during turns Impairments: strength decreased, impaired balance Bed Mobility Scoot/Bridge, Level of Whitley: modified independent Supine to Sit, Level of [place]: modified independent Sit to Supine, Level of [place]ley: modified independent Impairments: impaired balance, strength decreased Balance Sitting is good Static stand is fair Dynamic stand is fair Functional Endurance good ROM WFL x 4 Strength grossly 4+/5 PT Goal Review Date Most Recent Value STG Review Date 09/22/19 at 09/21/2019 1430 Additional Goal #1 PT Most Recent Value STG Status new at 09/21/2019 1430 STG pt to particpate with PT eval and instruction at 09/21/2019 1430 PT Time Calculation Individual Start Time: 1420 Individual Stop Time: 1430 Individual Total Time: 10 Missed Treatment Time: 0 PT Total Treatment Time: 10 Electronically signed by: Lucy Loya PT, 09/21/2019 3:44 PM eICU Note - Leni Robison RN - 09/21/2019 1 :15 PM PST5 hour CVVHD run completed. Ending pressures: access 28, venous 104, effluent 95. Final vital signs: HR 60's, BP 182/71, 02 95% room air. Total volume dialyzed off 4210 mL. P T tolerated well. l [facility] - 09/21/2019 9:17 AM PST NUTRITION THERAPY NOTE Summary Pt admitted with fluid overload, ESRD on chronic dialysis. MD has her on a consist ent CHO, 3 gm K, 1200 cc fluid restricted diet. On entering the room she was very upset abo ut her meal trays with many complaints in regards to textures, temps and artificial sweetene rs. By the end of the meeting she was pleased and happy with menu choices. A new tray was provided within her diet restrictions. Estimated Energy and Protein Needs: (based on 80 kg) Kcal needs: 7447-8485 Kcals/day Protein needs:80-90 grams of protein/day Fluid goal:8681-0297 cc fluid per day Nutrition Plan of Care: Nutrition Diagnosis: Not ready for diet/lifestyle change related to renal diet as evidenc ed by verbalization from the pt, attempting to work with her on diet and menu choices Interventions: 1. Work with pt on menu choices 2. Continue CHO, low K fluid restricted diet Nutrition Goals: 1. To increase oral intake 2. Meet nutritional needs Monitor: 1. Nutritional parameters 2. Follow up with pt on menu choices F/u in 5 days. Available as needed, ext [phone] Assessment: Diet Order: For your reference, the current active diet order is: Diet consistent carb; 1200 ml fluid; potassium 3 gm K; Effective Now Intake 10% maybe more that she is pleased with menu offerings. Labs: Recent Labs 09/21/19 0446 09/20/19 0502 09/19/19 0601 NA 137 139 141 K 5.2* 4.7 5.3* CL 102 103 103 BUN 38* 32* 45* CREA 5.37* 4.59* 6.30* ALBUMIN 3.0* 2.8* 3.1* MG -- 2.0 1.8 PHOS 7.7* 6.6* 8.7* Anthropometrics: Height: 172.7 cm (5' 8") Weight: 80.1 kg (176 lb 9.4 oz) Wt Readings from Last 3 Encounters: 09/21/19 80.1 kg (176 lb 9.4 oz) 06/13/19 68 kg (150 lb) 05/22/19 67.5 kg (148 lb 13 oz) Body mass index is 26.85 kg/m. Weight change: First: 82.6 kg (09/18/192013)Last: 80.1 kg (09/21/19428)Difference: -2. 5kg Electronically Signed by: Angelina Tucker RDN 09/21/2019 9:17 AM eI CU Richie - Kerry Melendez RN - 09/21/2019 8:15 AM PSTPatient upset since she saw me this mo rning, c/o not getting her dialysis yesterday causing about why she is always last, I explai javi to her the reason why it was not done yesterday and that Im here to do it first thing in the morning. She is upset about her bed and keeps asking for coffee and when I tried to ed ucated her about her fluid restriction she keep repeating " you don't care about anything" W hen I got her fistula access she was very upset that it hurt a lot , I used lidocaine but sh dora does not believe I use it. She is mad about her breakfast and saying she does not need to cooperate with us if she is not getting what she wants. Will continue with dialysis and 1:1 with her to get her cares done. 8: 45 AM PSTPlan of Peyman Weinstein RN - 09/21/2019 7:37 AM PSTPt is A&O x4, she was jorgito tated at the beginning of shift but then was very pleasant and acceptance to cares. She did receive oxycodone for pain one time, she will receive dialysis today, call light within reac h and calls approprietly. Will continue to monitor. lan of Mirtha Alexis RN - 09/20/2019 5:22 PM PST Patient AOX4, VSS, BS with in normal. Patient up to side of bed for meals, showered today as requested, patient refused PT, patient compliant with nursing request. Independent in room. lan Lucy Lau PT - 09/20/2019 4:35 PM PSTTherapy Plan of Care Missed Visit Note Patient Information Patient Name: Ara Campos Date of : 1945 Age: 74 y.o. The patient was unable to be seen for today's scheduled visit due to multiple refusals.. Plan: attempt PT eval tomorrow Electronically signed by: Lucy Loya PT, 09/20/2019 4:36 PM lan of Allison Hanna PT - 09/20/2019 10:33 AM PSTTherapy Plan of Care Missed Visit Note Patient Information Patient Name: Ara Campos Date of : 1945 Age: 74 y.o. The patient was unable to be seen for today's scheduled visit due to pt adamantly refusing mobilization out of bed. PT communicated at length with pt. Pt stated she stays at her siste rs "for now", no steps. Pt indicated she completed self cares of bathing and dressing w/o as sistance and walked without AD. She stated she had a 4WW but never got it when she left SNF last year. Repeatedly refused mobility of any kind for assessment and walker recommendations , "I can walk, I am not going to perform for you." Stated she did not want a FWW and didn't care if she leaves with or without. Pt annoyed and stated "quit asking questions, your buggi ng me". PT communicated with Nrsg before and after attempt to work with pt, communicated als o with CM. Per nursing and notes, pt is not wanting help when she walks to bathroom but is using FWW f or mobilization and would likely benefit from having a walker. Plan: PT to re-attempt eval/tx if pt willing to participate. Electronically signed by: Allison Carr PT, 09/20/2019 10:49 AM lan Melanie - Remedios Angelo RN - 09/20/2019 5:30 AM PSTDeanna has had no falls or injuries this shift. Alert a nd oriented, very flat affect and difficult to engage. Compliant with med administration an d assessment this shift. P STWilder of Melanie - Olesya Nj RN - 09/19/2019 8:00 PM PSTPt refused nursing assessmen t this morning. Refused Stephen-Lo pill, saying, "it's bad for me and quit trying to give it to me". Up to toilet with FWW, with SBA. Refused measuring hat in toilet. C/o low back pain, one tab Percocet given x2 today. Dialysis today, 4L off. Calls appropriately. P AntoniettaU Note - Matthew, Francisca Restrepo RN - 09/19/2019 4:35 PM PSTDeblanca is scheduled for a 5 emir r run of dialysis today. She tells me she gets dialysis MWF in [place]. Currently she has notable swelling in lower extremities which is not her normal. She states her weight is usua lly around 145lbs. Currently 171lbs. 4L ordered for UF today. 2K bath. Accessed via RAVF; +b ruit/thrill. Prepped per standard, no complications noted & patient tolerated well. Access p ressure high on initiation of treatment only able to tolerate BFR at 300. Some slight leg cr amping towards the end of UF goal. BP elevated near end of treatment--especially when upset about her food. Otherwise she tolerated treatment well. Report given to primary RNOlesya. Plan for more dialysis tomorrow. lan of Care - Allison Lozano PT - 09/19/2019 1:16 PM PSTTherapy Plan of Care Missed Visit Note Patient Information Patient Name: Ara Campos Date of : 1945 Age: 74 y.o. The patient was unable to be seen for today's scheduled visit due to pt unavailable, presen tly receiving dialysis. Estimated finish time 1600 per Nrsg. Plan: Will check back later today or plan for Eval/tx tomorrow. Electronically signed by: Allison Carr, PT, 09/19/2019 1:16 PM lan of Michelle Worthington - 09/19/2019 11:18 AM PSTDischarge Planning: This CM Asst had a short and somewhat difficult conversation with Ara at her bedside reg arding discharge. Ara is lying in bed on her right side receiving dialysis. She does not make eye contact. She appears to be focusing on the TV above this writers head. Ara reports she lives with her sister Cherrie Bran in [place]. She states there is a ra mp to enter the home. No stairs inside her sisters home. The bathroom has a tub shower. Ara reports she has dialysis on //. She reports she has a had dutch getting to her appo intments and reports the dialysis center "is always screwing up her schedule." Ara reports being seen at [facility] but does not know her providers name. At this time she tells me she does not understand my questions. CM will need to follow up with patient closer to discharge. Patient may benefit from Home Health services thru the [facility] for medication man agement. Per provider notes she seems to have difficulty managing meds. Dispo: TBD Electronically signed by: Michelle Jackson 09/19/2019 11:29 AM lan of Care - Jessie Powers RN - 09/19/2019 5:20 AM PSTAra has remained free from falls and injury. She has had complaints of pain from her thoracentesis, but that was relieved with oxycodone. She cortés s gotten several diuretics this evening and has only urinated 150 then 100. Vital signs have been stable, blood pressure has been WNL. Will be getting dialysis today on the . Brenda ladd called and talked to her regarding getting up without help. States she will call for help next time. [facility] ed in this encounter Plan of Treatment + +------+--------+ + + | Name | Type | Priori | Associated Diagnoses | Date/Time | | | | ty | | | + +------+--------+ + + | ED INFORMATION | CHRISTY | Routin | | 09/18/2019 1:51 PM | | EXCHANGE | | e | | PST | + +------+--------+ + + documented as of this encounter Procedures + +--------+ + + + | Procedure Name | Priori | Date/Time | Associated Diagnosis | Comments | | | ty | | | | + +--------+ + + + | POC GLUCOSE | Routin | 09/21/2019 | | Results for this | | | e | 6:45 AM | | procedure are in the | | | | PST | | results section. | + +--------+ + + + | EXTRA LAVENDER TOP | Routin | 09/21/2019 | | Results for this | | TUBE | e | 4:46 AM | | procedure are in the | | | | PST | | results section. | + +--------+ + + + | RENAL FUNCTION PANEL | Routin | 09/21/2019 | | Results for this | | | e | 4:46 AM | | procedure are in the | | | | PST | | results section. | + +--------+ + + + | POC GLUCOSE | Routin | 09/20/2019 | | Results for this | | | e | 9:34 PM | | procedure are in the | | | | PST | | results section. | + +--------+ + + + | POC GLUCOSE | Routin | 09/20/2019 | | Results for this | | | e | 5:15 PM | | procedure are in the | | | | PST | | results section. | + +--------+ + + + | POC GLUCOSE | Routin | 09/20/2019 | | Results for this | | | e | 12:24 PM | | procedure are in the | | | | PST | | results section. | + +--------+ + + + | XR CHEST 2 VIEWS | Routin | 09/20/2019 | | Results for this | | | e | 11:22 AM | | procedure are in the | | | | PST | | results section. | + +--------+ + + + | POC GLUCOSE | Routin | 09/20/2019 | | Results for this | | | e | 6:49 AM | | procedure are in the | | | | PST | | results section. | + +--------+ + + + | EXTRA LAVENDER TOP | Routin | 09/20/2019 | | Results for this | | TUBE | e | 5:02 AM | | procedure are in the | | | | PST | | results section. | + +--------+ + + + | PARATHYROID HORMONE, | Add-On | 09/20/2019 | | Results for this | | INTACT | | 5:02 AM | | procedure are in the | | | | PST | | results section. | + +--------+ + + + | MAGNESIUM | Routin | 09/20/2019 | | Results for this | | | e | 5:02 AM | | procedure are in the | | | | PST | | results section. | + +--------+ + + + | HEMOGLOBIN A1C | Add-On | 09/20/2019 | | Results for this | | | | 5:02 AM | | procedure are in the | | | | PST | | results section. | + +--------+ + + + | RENAL FUNCTION PANEL | Routin | 09/20/2019 | | Results for this | | | e | 5:02 AM | | procedure are in the | | | | PST | | results section. | + +--------+ + + + | POC GLUCOSE | Routin | 09/19/2019 | | Results for this | | | e | 9:26 PM | | procedure are in the | | | | PST | | results section. | + +--------+ + + + | POC GLUCOSE | Routin | 09/19/2019 | | Results for this | | | e | 4:35 PM | | procedure are in the | | | | PST | | results section. | + +--------+ + + + | POC GLUCOSE | Routin | 09/19/2019 | | Results for this | | | e | 11:51 AM | | procedure are in the | | | | PST | | results section. | + +--------+ + + + | POC GLUCOSE | Routin | 09/19/2019 | | Results for this | | | e | 6:12 AM | | procedure are in the | | | | PST | | results section. | + +--------+ + + + | CBC NO DIFFERENTIAL | Routin | 09/19/2019 | | Results for this | | | e | 6:01 AM | | procedure are in the | | | | PST | | results section. | + +--------+ + + + | MAGNESIUM | Routin | 09/19/2019 | | Results for this | | | e | 6:01 AM | | procedure are in the | | | | PST | | results section. | + +--------+ + + + | RENAL FUNCTION PANEL | Routin | 09/19/2019 | | Results for this | | | e | 6:01 AM | | procedure are in the | | | | PST | | results section. | + +--------+ + + + | POC GLUCOSE | Routin | 09/18/2019 | | Results for this | | | e | 10:20 PM | | procedure are in the | | | | PST | | results section. | + +--------+ + + + | CULTURE, BODY FLUID, | Routin | 09/18/2019 | | Results for this | | AEROBE | e | 7:23 PM | | procedure are in the | | | | PST | | results section. | + +--------+ + + + | LACTATE | Routin | 09/18/2019 | | Results for this | | DEHYDROGENASE, BODY | e | 7:23 PM | | procedure are in the | | FLUID | | PST | | results section. | + +--------+ + + + | CULTURE, BODY FLUID, | Routin | 09/18/2019 | | Results for this | | ANAEROBE | e | 7:23 PM | | procedure are in the | | | | PST | | results section. | + +--------+ + + + | CULTURE, BODY FLUID, | Routin | 09/18/2019 | | Results for this | | ANAEROBE | e | 7:23 PM | | procedure are in the | | | | PST | | results section. | + +--------+ + + + | CELL COUNT WITH | Routin | 09/18/2019 | | Results for this | | DIFFERENTIAL, BODY | e | 7:23 PM | | procedure are in the | | FLUID | | PST | | results section. | + +--------+ + + + | PROTEIN, BODY FLUID | Routin | 09/18/2019 | | Results for this | | | e | 7:23 PM | | procedure are in the | | | | PST | | results section. | + +--------+ + + + | US GUIDED | STAT | 09/18/2019 | | Results for this | | THORACENTESIS WO | | 7:08 PM | | procedure are in the | | CHEST TUBE | | PST | | results section. | + +--------+ + + + | XR CHEST 2 VIEWS | STAT | 09/18/2019 | | Results for this | | | | 3:06 PM | | procedure are in the | | | | PST | | results section. | + +--------+ + + + | ECG 12 LEAD | STAT | 09/18/2019 | | Results for this | | | | 3:00 PM | | procedure are in the | | | | PST | | results section. | + +--------+ + + + | PROCALCITONIN, SERUM | Add-On | 09/18/2019 | | Results for this | | | | 2:45 PM | | procedure are in the | | | | PST | | results section. | + +--------+ + + + | TROPONIN I | STAT | 09/18/2019 | | Results for this | | | | 2:45 PM | | procedure are in the | | | | PST | | results section. | + +--------+ + + + | SEDIMENTATION RATE | Add-On | 09/18/2019 | | Results for this | | | | 2:45 PM | | procedure are in the | | | | PST | | results section. | + +--------+ + + + | PROTIME INR | STAT | 09/18/2019 | | Results for this | | | | 2:45 PM | | procedure are in the | | | | PST | | results section. | + +--------+ + + + | CBC WITH | STAT | 09/18/2019 | | Results for this | | DIFFERENTIAL | | 2:45 PM | | procedure are in the | | | | PST | | results section. | + +--------+ + + + | C-REACTIVE PROTEIN | Add-On | 09/18/2019 | | Results for this | | | | 2:45 PM | | procedure are in the | | | | PST | | results section. | + +--------+ + + + | B TYPE NATRIURETIC | STAT | 09/18/2019 | | Results for this | | PEPTIDE | | 2:45 PM | | procedure are in the | | | | PST | | results section. | + +--------+ + + + | LACTATE | Add-On | 09/18/2019 | | Results for this | | DEHYDROGENASE | | 2:45 PM | | procedure are in the | | | | PST | | results section. | + +--------+ + + + | COMPREHENSIVE | STAT | 09/18/2019 | | Results for this | | METABOLIC PANEL | | 2:45 PM | | procedure are in the | | | | PST | | results section. | + +--------+ + + + | ED INFORMATION | Routin | 09/18/2019 | | | | EXCHANGE | e | 1:51 PM | | | | | | PST | | | + +--------+ + + + +---+--------+ | | | | | Proced | | | ure | | | Note - | | | Julian, | | | Lab In | | | | | | Hlseve | | | n - | | | 09/18/ | | | 2019 | | | 1:52 | | | PM PST | | | | | | [...] | | | ON?/ | | | | | | 0 | | | 13:50? | | | WILLIA | | | MS, | | | ARA | | | | | | R?MRN: | | | | | | [id number] | | | [id number] | | | riteri | | | a Met | | | 4 | | | visits | | | in | | | 60Secu | | | rity | | | [...] | | | system | | | .Presc | | | riptio | | | n Drug | | | | | | Report | | | [...] | | | 40 | | | MICHELLE | | | | | | RAFTER [...] | | | Center | | | 2 0 | | | [facility] | | [facility] | [place] | | | [facility] | [facility] | | | [facility] | | | al 11 | | | 0 | | | [...] | | | SOB | | | Dec | | | 27, | | | 2019 | | | [facility] | y [facility]. | | [...] | | e of | | | elem | | | | | | mckeon [...] | | | St[facility] | | | [facility] | | | y H. | | [...] | | | St[facility] | | [facility] | | | y H. | | [...] | | e of | | | elem | | | | | | mckeon | | | ry | | | artery | | | w/o | | | ang | | | pctrs | | | Oct | | | 8, | | | 2019 | | | [facility] | [facility] [place] [facility] [place] | | | ID | | | [...] | | | [facility] | | | [facility] | | | y H. | | [...] | | | [facility] | | [facility] | | | y H. | | [...] | | | St[facility] | | | [facility] | | | y H. | | [...] | | | St[facility] | | | [facility] | | | y H. | | [...] | | | Thomas | | | 22, | | | 2019 | | | [facility] | | | y H. | | [...] status | | | | | | Other [...] status | | | | | | Essent | | | ial | | | (prima | | | ry) | | | hypert | | | ension | | | | | | Long [...] unsp | | | | | | Weakne | | | ss | | | 1 Type | | | 2 | | | diabet | | | es | | | mellit | | | us | | | with | | | diabet | | | ic | | | catara | | | ct | | | Prsnl | | | hx of | | | TIA | | | (TIA), | | | and | | | cereb | | | infrc | | | w/o | | | resid | | | defici | | | ts | | | Recent | | | [...] | | | int | | | Oct 8, | | | 2019 | | | [facility] | [facility] | [facility] | | | | | | Center | | | [place] | | | ID | | | [...] | | | ([phone]) | | | [phone] | | | 00 | | | ([phone]) | | | [phone] | | | 27 Dec | | | 30, | | [...] | | | N, | | | [employer] SALES [employer]NAGER-C | | | Nurse | | | [...] | | | [facility] | | | [place] | | | | | | [facility] [...] | | | otify/ | | | [id number] | | | [id number] | | | [id number] | | | [id number] | | | [id number] | | | [id number] | | | | | | PLEASE [...] documented in this encounter Results POC Glucose (09/21/2019 6:45 AM PST) + +-------+ + + + | Component | Value | Ref Range | Performed | Pathologist | | | | | At | Signature | + +-------+ + + + | Glucose, | 97 | 70 - 109 mg/dL | [facility] [...] + | [facility] | [address] | [place] | [phone] | | [facility] | | [address] | | | - LABORATORY | | | | + + + + + Extra Lavender Top Tube (09/21/2019 4:46 AM PST) + +-------+ + + + [...] [address] | [place] | [phone] | | [facility] | | [address] | | | - LABORATORY | | | | + + + + + Renal Function Panel (09/21/2019 4:46 AM PST) + + + + + [...] + + + | K | 5.2 (H) | 3.4 - 5.1 | [facility] | | | | | mmol/L | [facility] | | | | | | MED[facility] | | | | | | CENTER - | | | | | | LABORATORY | | + + + + + + | Cl | 102 | 98 - 107 mmol/L | [facility] [...] + + + + | Glucose | 114 (H) | 60 - 106 mg/dL | [facility] | | | | | [facility] | | | | | | MEDICAL | | | | | | CENTER - | | | | | | LABORATORY | | + + + + + + | BUN | 38 (H) | 9 - 23 mg/dL | [facility] | [facility] | [facility] | | | | | | MEDICAL | | | | | | CENTER - | | | | | | LABORATORY | | + + + + + + | Creatinine | 5.37 (H) | 0.55 - 1.02 | [facility] | | | | | mg/dL | [facility] | | | | | | MEDICAL | | | | | | CENTER - | | | | | | LABORATORY | | + + + + + + | eGFR if not | 8 (L)Comment: GLOMERULAR | >=60 | [facility] | | | | FILTRATION | mL/min/1.73m2 | [facility] | | | [place] | RATE,ESTIMATED | | MEDICAL | | | | mL/min/1.35x2Vssn than | | CENTER - | | [...] + + + + | Calcium | 7.5 (L) | 8.7 - 10.4 | [facility] | | | | | mg/dL | [facility] | | | | | | MEDICAL | | | | | | CENTER - | | | | | | LABORATORY | | + + + + + + | Albumin | 3.0 (L) | 3.2 - 4.8 g/dL | [facility] | | [facility] | [facility] | | | | | | MEDICAL | | | | | | CENTER - | | | | | | LABORATORY | | + + + + + + | Phosphorus | 7.7 (H) | 2.4 - 5.1 mg/dL | [facility] | | | | | [facility] | | | | | | MEDICAL | | | | | | CENTER - | | | | | | LABORATORY | | + + + + + + | BUN/Creatin | 7.1 | | [facility] | | | ine [...] [address] | [place] | [phone] | | [facility] | | [address] | | | - LABORATORY | | | | + + + + + POC Glucose (09/20/2019 9:34 PM PST) + +---------+ + + [...] + | [facility] | [address] | [place] | [phone] | | [facility] | | [address] | | | - LABORATORY | | | | + + + + + POC Glucose (09/20/2019 5:15 PM PST) + +---------+ + + + [...] + | [facility] | [address] | [place] | [phone] | | [facility] | | [address] | | | - LABORATORY | | | | + + + + + POC Glucose (09/20/2019 12:24 PM PST) + +---------+ + + + [...] ST. | [address] | [place], [place] | [phone] | | [facility] | | [address] | | | - LABORATORY | | | | + + + + + XR Chest 2 Vws (09/20/2019 11:22 AM [facility]) + + | Specimen | + + | | + + + + + | Impressions | Performed At | + + + | Decreased right pleural effusion. No radiographically | [facility] | | significant change in the left chest. Pulmonary venous | | | congestion. Dictated and Signed by: Rolan Orellana MD | | | Electronically signed: 09/20/2019 11:59 AM | | + + + + + + | Narrative | Performed At | + + + | EXAM: XR CHEST 2 VIEWS dated 09/20/2019 11:15 AM HISTORY: 2 view | [facility] | | CXR in XR Dept. By 0900.* Please do Not do portable; for F/U of | | | CHF, left effusion. Thanks! Comparison: 09/18/2019 | | | TECHNIQUE: Frontal and lateral views of the chest. FINDINGS: No | | | significant change in the pleural effusion and parenchymal opacities | | | in the left chest. Interval decreased blunting of the right gastric | | | angle. Probable pulmonary vasculature bilaterally. Cardiomegaly. | | | No pneumothorax. Stable osseous structures. | | + + + + + | Procedure Note | + + | Juilan, Rad Results In - 09/20/2019 12:02 PM PST EXAM: XR CHEST 2 VIEWS dated 09/20/2019 | | 11:15 AMHISTORY: 2 view CXR in XR Dept. By 0900.* Please do Not do portable; for F/U | | ofCHF, left effusion. Thanks!Comparison: 09/18/2019TECHNIQUE: Frontal and lateral views | | of the chest.FINDINGS:No significant change in the pleural effusion and parenchymal | | opacities in theleft chest. Interval decreased blunting of the right gastric angle. | | Probablepulmonary vasculature bilaterally. Cardiomegaly. No pneumothorax. | | Stableosseous structures. IMPRESSION: Decreased right pleural effusion.No | | radiographically significant change in the left chest. Pulmonary venous | | congestion.Dictated and Signed by: Rolan Orellana MD Electronically signed: 09/20/2019 | | 11:59 AM | |No significant change in the pleural effusion and parenchymal opacities in the | |left chest. Interval decreased blunting of the right gastric angle. Probable | |pulmonary vasculature bilaterally. Cardiomegaly. No pneumothorax. Stable | |osseous structures. | | | |IMPRESSION: | | | |Decreased right pleural effusion. | | | |No radiographically significant change in the left chest. | | | |Pulmonary venous congestion. | | | |Dictated and Signed by: Rolan Orellana MD | | Electronically signed: 09/20/2019 11:59 AM | + + + +---------+ + + | Performing | Address | City/State/Zipcode | Phone Number | | Organization | | | | + +---------+ + + | [facility] | | | | + +---------+ + + POC Glucose (09/20/2019 6:49 AM PST) + +-------+ + + + | Component | Value | Ref Range | Performed | Pathologist | | | | | At | Signature | + +-------+ + + + | Glucose, | 97 | 70 - 109 mg/dL | [facility] [...] + | [facility] | [address] | [place] | [phone] | | [facility] | | [address] | | | - LABORATORY | | | | + + + + + Hemoglobin A1C (09/20/2019 5:02 AM PST) + +---------+ + + + | Component | Value | Ref Range | Performed | Pathologist | | | | | At | Signature | + +---------+ + + + | Hemoglobin | 6.1 (H) | 4.3 - 6.0 % | [facility] | | | A1c | | | [facility] | | [facility] | [facility] | | | | | | CENTER - | | | | | | LABORATORY | | + +---------+ + + + | Estimated | 128 | mg/dL | [facility] | | | [...] + | [facility] | [address] | [place] | [phone] | | [facility] | | [address] | | | - LABORATORY | | | | + + + + + Parathyroid Hormone, Intact (09/20/2019 5:02 AM PST) + +---------+ + + + | Component | Value | Ref Range | Performed | Pathologist | | | | | At | Signature | + +---------+ + + + | PTH Intact | 310 (H) | 19 - 88 pg/mL | [...] [address] | [place] | [phone] | | [facility] | | [address] | | | - LABORATORY | | | | + + + + + Extra Lavender Top Tube (09/20/2019 5:02 AM PST) + +-------+ + + [...] [address] | [place] | [phone] | | [facility] | | [address] | | | - LABORATORY | | | | + + + + + Magnesium (09/20/2019 5:02 AM PST) + +-------+ + + + | Component | Value | Ref Range | Performed | Pathologist | | | | | At | Signature | + +-------+ + + + | Magnesium | 2.0 | 1.6 - 2.6 mg/dL | [facility] [...] [facility] | [address] | [place], [place] | [phone] | | [facility] | | [address] | | | - LABORATORY | | | | + + + + + Renal Function Panel (09/20/2019 5:02 AM PST) + + + + [...] + + | K | 4.7 | 3.4 - 5.1 | [facility] | [...] + + | CO2 | 27 | 20 - 31 mmol/L | [facility] [...] + + + + | Glucose | 92 | 60 - 106 mg/dL | [facility] | | | | | [facility] | | | [facility] | MEDICAL | | | | | | CENTER - | | | | | | LABORATORY | | + + + + + + | BUN | 32 (H) | 9 - 23 mg/dL | [facility] | | | | | [facility] | | | | [facility] | [facility] | | | | | | CENTER - | | | | | | LABORATORY | | + + + + + + | Creatinine | 4.59 (H) | 0.55 - 1.02 | [facility] | | | | | mg/dL | [facility] | | | | | | [facility]ICAL | | | | | | CENTER - | | | | | | LABORATORY | | + + + + + + | eGFR if not | 9 (L)Comment: GLOMERULAR | >=60 | [facility] | | | | FILTRATION | mL/min/1.73m2 | [facility] | | | [place] | RATE,ESTIMATED | | MEDICAL | | | | mL/min/1.07f1Tnsy than | | CENTER - | | [...] + + + + | Calcium | 7.5 (L) | 8.7 - 10.4 | [facility] | | | | | mg/dL | [facility] | | | | | | MEDICAL | | | | | | CENTER - | | | | | | LABORATORY | | + + + + + + | Albumin | 2.8 (L) | 3.2 - 4.8 g/dL | [facility] | | | | | | [facility] | | [facility] | | | MEDICAL | | | | | | CENTER - | | | | | | LABORATORY | | + + + + + + | Phosphorus | 6.6 (H) | 2.4 - 5.1 mg/dL | [facility] | | | | | | [facility] | | [facility] | | | MEDICAL | | | | | | CENTER - | | | | | | LABORATORY | | + + + + + + | BUN/Creatin | 7.0 | | [facility] | | | ine [...] | [facility] | [address] | [place] | [phone] | | [facility] | | [address] | | | - LABORATORY | | | | + + + + + POC Glucose (09/19/2019 9:26 PM PST) + +---------+ + + + [...] [address] | [place] | [phone] | | [facility] | | [address] | | | - LABORATORY | | | | + + + + + POC Glucose (09/19/2019 4:35 PM PST) + +---------+ + + + | Component | Value | Ref Range | Performed | Pathologist | | | | | At | Signature | + +---------+ + + + | Glucose, | 152 (H) | 70 - 109 mg/dL | [...] [address] | [place] | [phone] | | [facility] | | [address] | | | - LABORATORY | | | | + + + + + POC Glucose (09/19/2019 11:51 AM PST) + +---------+ + + + | Component | Value | Ref Range | Performed | Pathologist | | | | | At | Signature | + +---------+ + + + | Glucose, | 120 (H) | 70 - 109 mg/dL | [...] [address] | [place] | [phone] | | [facility] | | [address] | | | - LABORATORY | | | | + + + + + POC Glucose (09/19/2019 6:12 AM PST) + +---------+ + + [...] [address] | [place] | [phone] | | [facility] | | [address] | | | - LABORATORY | | | | + + + + + Magnesium (09/19/2019 6:01 AM PST) + +-------+ + + + | Component | Value | Ref Range | Performed | Pathologist | | | | | At | Signature | + +-------+ + + + | Magnesium | 1.8 | 1.6 - 2.6 mg/dL | [facility] | | | [...] [address] | [place] | [phone] | | [facility] | | [address] | | | - LABORATORY | | | | + + + + + CBC no Differential (09/19/2019 6:01 AM PST) + + + + + + | Component | Value | Ref Range | Performed | Pathologist | | | | | At | Signature | + + + + + + | White Blood | 5.1 | 4.0 - 11.0 K/uL | [facility] | | | Cells | | | [facility] | | | | | | MEDICAL | | | | | | CENTER - | | | | | | LABORATORY | | + + + + + + | Red Blood | 3.54 (L) | 3.70 - 5.20 | [facility] | | | Cells | | M/uL | [facility] | | | | | | MEDICAL | | | | | | CENTER - | | | | | | LABORATORY | | + + + + + + | Hemoglobin | 10.6 (L) | 11.5 - 16.0 | [facility] | | | | | g/dL | [facility] | | | | | | MEDICAL | | | | | | CENTER - | | | | | | LABORATORY | | + + + + + + | Hematocrit | 35.4 | 34.0 - 47.0 % | [facility] | | | | | | [facility] | | | | | | MEDICAL | | | | | | CENTER - | | | | | | LABORATORY | | + + + + + + | MCV | 100.0 | 83.0 - 101.0 fL | [facility] | | | | | | [facility] | | | | | | MEDICAL | | | | | | CENTER - | | | | | | LABORATORY | | + + + + + + | MCH | 29.9 | 28.0 - 35.0 pg | [facility] | | | | | | [facility] | | | | | | MEDICAL | | | | | | CENTER - | | | | | | LABORATORY | | + + + + + + | MCHC | 29.9 (L) | 32.0 - 36.0 | [facility] | | | | | g/dL | [facility] | | | | | | MEDICAL | | | | | | CENTER - | | | | | | LABORATORY | | + + + + + + | RDW-CV | 16.0 (H) | <15.0 % | [facility] | | | | | | [facility] | | | | | | MEDICAL | | | | | | CENTER - | | | | | | LABORATORY | | + + + + + + | RDW-SD | 59.3 (H) | 35.1 - 46.3 fL | [facility] | | | | | | [facility] | | | | | | MEDICAL | | | | | | CENTER - | | | | | | LABORATORY | | + + + + + + | Platelet | 223 | 140 - 440 K/uL | [facility] [...] [address] | [place] | [phone] | | [facility] | | [address] | | | - LABORATORY | | | | + + + + + Renal Function Panel (09/19/2019 6:01 AM PST) + + + + + + | Component | Value | Ref Range | Performed | Pathologist | | | | | At | Signature | + + + + + + | Na | 141 | 136 - 145 | [facility] | | | | | mmol/L | [facility] | | | [facility] | | MEDICAL | | | | | | CENTER - | | | | | | LABORATORY | | + + + + + + | K | 5.3 (H) | 3.4 - 5.1 | [facility] | [...] + + | CO2 | 25 | 20 - 31 mmol/L | [facility] | | | | | | [facility] | | | | | | MEDICAL | | | | | | CENTER - | | | | | | LABORATORY | | + + + + + + | Anion Gap | 13 | 3 - 16 mmol/L | [facility] | | | | | | [facility] | | | | | | MEDICAL | | | | | | CENTER - | | | | | | LABORATORY | | + + + + + + | Glucose | 134 (H) | 60 - 106 mg/dL | [facility] | | | | | | [facility] | | | | | | MEDICAL | | | | | | CENTER - | | | | | | LABORATORY | | + + + + + + | BUN | 45 (H) | 9 - 23 mg/dL | [facility] | | | | | | [facility] | | | | | | MEDICAL | | | | | | CENTER - | | | | | | LABORATORY | | + + + + + + | Creatinine | 6.30 (H) | 0.55 - 1.02 | [facility] | | | | | mg/dL | [facility] | | | | | | MEDICAL | | | | | | CENTER - | | | | | | LABORATORY | | + + + + + + | eGFR if not | 6 (L)Comment: GLOMERULAR | >=60 | [facility] | | | | FILTRATION | mL/min/1.73m2 | [facility] | | | [place] | RATE,ESTIMATED | | MEDICAL | | | | mL/min/1.23c0Apfd than | | CENTER - | | [...] + | Calcium | 7.9 (L) | 8.7 - 10.4 | [facility] | | | | | mg/dL | [facility] | | | | | | MEDICAL | | | | | | CENTER - | | | | | | LABORATORY | | + + + + + + | Albumin | 3.1 (L) | 3.2 - 4.8 g/dL | [facility] | | | | | | [facility] | | | | | | MEDICAL | | | | | | CENTER - | | | | | | LABORATORY | | + + + + + + | Phosphorus | 8.7 (HH)Comment: | 2.4 - 5.1 mg/dL | [facility] | | | | Critical Result called | | [facility] | | | | to and read back by | | MEDICAL | | | | Pollo Powers RN on | | CENTER - | | | | 09/19/2019 at 6:59 AM by | | LABORATORY | | | | Devang Mcfarlane. | | | | + + + + + + | BUN/Creatin | 7.1 | | [facility] | | | ine Ratio | | [...] [address] | [place] | [phone] | | [facility] | | [address] | | | - LABORATORY | | | | + + + + + POC Glucose (09/18/2019 10:20 PM PST) + +---------+ + + + | Component | Value | Ref Range | Performed | Pathologist | | | | | At | Signature | + +---------+ + + + | Glucose, | 141 (H) | 70 - 109 mg/dL | [...] ST. | [address] | [place] | [phone] | | [facility] | | [address] | | | - LABORATORY | | | | + + + + + Culture, Body Fluid, Anaerobe (09/18/2019 7:23 PM PST) + + + + + [...] + | [facility] | [address] | [place] | [phone] | | [facility] | | [address] | | | - LABORATORY | | | | + + + + + Culture, Body Fluid, Aerobe (09/18/2019 7:23 PM PST) + + + + + + | Component | Value | Ref Range | Performed | Pathologist | | | | | At | Signature | + + + + + + | Culture | No Growth | | [facility] | | | | | | [facility] | | | | | | MEDICAL | | | | | | CENTER - | | | | | | LABORATORY | | + + + + + + | Gram Stain | 1+ White Blood Cells | | [facility] | | | Result | | | [facility] | | | | | | MEDICAL | | | | | | CENTER - | | | | | | LABORATORY | | + + + + + + | Gram Stain | No organisms seen | | [facility] | | | Result [...] + | [facility] | [address] | [place] | [phone] | | [facility] | | [address] | | | - LABORATORY | | | | + + + + + Lactate Dehydrogenase, Body Fluid (09/18/2019 7:23 PM PST) + + + + + + | Component | Value | Ref Range | Performed | Pathologist | | | | | At | Signature | + + + + + + | Lactate | 112 | U/L | [facility] | | | Dehydrogena | | | [facility] | | | se, Body | | | MEDICAL | | | Fluid | | | CENTER - | | | | | | LABORATORY | | + + + + + + | Specimen | Pleural Fluid, Left | | [facility] | | | Source | | | [facility] | | [...] [address] | [place] | [phone] | | [facility] | | [address] | | | - LABORATORY | | | | + + + + + Protein, Body Fluid (09/18/2019 7:23 PM PST) + + + + + [...] + + + + | Protein, | 2.6 | g/dL | [facility] | | | [...] ST. | [address] | [place] | [phone] | | [facility] | | [address] | | | - LABORATORY | | | | + + + + + Cell Count with Differential, Body Fluid (09/18/2019 7:23 PM PST) + + + + + [...] + + + + | Appearance, | Clear | Clear | [facility] | | | Body Fluid | | | [facility] | | | | | | MEDICAL | | | | | | CENTER - | | | | | | LABORATORY | | + + + + + + | Nucleated | 346 (H) | 0 - 150 | [facility] | | | Cells, Body | | cells/uL | [facility] | | | Fluid | | | MEDICAL | | | | | | CENTER - | | | | | | LABORATORY | | + + + + + + | Red Blood | 4,000 | Reference Range | [facility] | | | Cells, Body | | Not | [facility] | | | Fluid | | Established | MEDICAL | | | | | cells/uL | CENTER - | | | | | | LABORATORY | | + + + + + + | % | 96.8 | % | [facility] | | | Mononuclear | | | [facility] | | | Cells, | | | MEDICAL | | | Body Fluid | | | CENTER - | | | | | | LABORATORY | | + + + + + + | % | 3.2 | % | [facility] | | | [...] ST. | [address] | [place], [place] | [phone] | | [facility] | | [address] | | | - LABORATORY | | | | + + + + + US Guided Thoracentesis wo Chest Tube (09/18/2019 7:08 PM PST) + + | Specimen | + + | | + + + + + | Impressions | Performed At | + + + | Successful ultrasound-guided thoracentesis. Dictated and Signed | [facility] | | by: Itz Madsen MD Electronically signed: 09/18/2019 10:37 PM | | + + + + + + | Narrative | Performed At | + + + | US GUIDED THORACENTESIS WO CHEST TUBE 09/18/2019 6:29 PM HISTORY: | [facility] | | pleural effusion, left sided. COMPARISON: 09/18/2019 x-ray | | | PROTOCOL: After explaining the risks and benefits of the procedure, | | | informed consent was obtained from the patient. Risks discussed | | | included bleeding, infection, and pneumothorax. Under ultrasound | | | guidance, the largest pocket of fluid was localized in the left | | | posterior chest. This region was cleansed and draped in the usual | | | sterile fashion. Lidocaine was used for local anesthesia. A small skin | | | tana was made. Using a thoracentesis needle and trocar system, the | | | pleural space was accessed. There was return of clear orange tinged | | | fluid. Subsequently, 1200 mL of the fluid was aspirated. The patient | | | tolerated the procedure well. | | + + + + + | Procedure Note | + + | Julian, Rad Results In - 09/18/2019 10:40 PM PST US GUIDED THORACENTESIS WO CHEST TUBE | | 09/18/2019 6:29 PMHISTORY: pleural effusion, left sided.COMPARISON: 09/18/2019 | | x-rayPROTOCOL:After explaining the risks and benefits of the procedure, informed consent | | wasobtained from the patient. Risks discussed included bleeding, infection, | | andpneumothorax. Under ultrasound guidance, the largest pocket of fluid waslocalized in | | the left posterior chest. This region was cleansed and draped inthe usual sterile | | fashion. Lidocaine was used for local anesthesia. A small skinnick was made. Using a | | thoracentesis needle and trocar system, the pleural spacewas accessed. There was return | | of clear orange tinged fluid. Subsequently, 1200mL of the fluid was aspirated. The | | patient tolerated the procedure well.IMPRESSION: Successful ultrasound-guided | | thoracentesis.Dictated and Signed by: Itz Madsen MD Electronically signed: 09/18/2019 | | 10:37 PM | |tana was made. Using a thoracentesis needle and trocar system, the pleural space | |was accessed. There was return of clear orange tinged fluid. Subsequently, 1200 | |mL of the fluid was aspirated. The patient tolerated the procedure well. | | | |IMPRESSION: | |Successful ultrasound-guided thoracentesis. | | | |Dictated and Signed by: Itz Madsen MD | | Electronically signed: 09/18/2019 10:37 PM | + + + +---------+ + + | Performing | Address | City/State/Zipcode | Phone Number | | Organization | | | | + +---------+ + + | [facility] | | | | + +---------+ + + XR Chest 2 Vws (09/18/2019 3:06 PM PST) + + | Specimen | + + | | + + + + + | Impressions | Performed At | + + + | Cardiomegaly with likely pulmonary edema. Opacification of the | [facility] | | left mid and lower lung zones likely representing pleural effusion | | | with adjacent atelectasis or consolidation. Dictated and Signed | | | by: Itz Madsen MD Electronically signed: 09/18/2019 3:43 PM | | + + + + + + | Narrative | Performed At | + + + | XR CHEST 2 VIEWS 09/18/2019 2:51 PM HISTORY: sob. COMPARISON: | [facility] | | 05/21/2019 Findings: Opacification of the left mid and lower lobe | | | are again pleural effusion with adjacent atelectasis or | | | consolidation. Enlargement of the central pulmonary vasculature. | | | Heart is enlarged. Aortic calcifications are present. No evidence of | | | pneumothorax. No acute osseous findings. | | + + + + + | Procedure Note | + + | Julian, Rad Results In - 09/18/2019 3:46 PM PST XR CHEST 2 VIEWS 09/18/2019 2:51 PM | | | | HISTORY: sob. | | | | COMPARISON: 05/21/2019 | | | | Findings: Opacification of the left mid and lower lobe are again pleural | | effusion with adjacent atelectasis or consolidation. Enlargement of the central | | pulmonary vasculature. Heart is enlarged. Aortic calcifications are present. No | | evidence of pneumothorax. No acute osseous findings. | | | | IMPRESSION: | | Cardiomegaly with likely pulmonary edema. | | | | Opacification of the left mid and lower lung zones likely representing pleural | | effusion with adjacent atelectasis or consolidation. | | | | Dictated and Signed by: Itz Madsen MD | | Electronically signed: 09/18/2019 3:43 PM | + + + +---------+ + + | Performing | Address | City/State/Zipcode | Phone Number | | Organization | | | | + +---------+ + + | [facility] | | | | + +---------+ + + ECG 12 lead (09/18/2019 3:00 PM PST) + + + + + + | Component | Value | Ref Range | Performed | Pathologist | | | | | At | Signature | + + + + + + | VENTRICULAR | 72 | BPM | [facility] | | | RATE EKG | | | | | + + + + + + | ATRIAL RATE | 69 | BPM | [facility] | | + + + + + + | P-R | 80 | ms | [facility] | | | INTERVAL | | | | | + + + + + + | QRS | 128 | ms | [facility] | | | DURATION | | | | | + + + + + + | Q-T | 470 | ms | [facility] | | | INTERVAL | | | | | + + + + + + | Q-T | 514 | ms | [facility] | | | INTERVAL | | | | | | (CORRECTED) | | | | | + + + + + + | P WAVE AXIS | -21 | degrees | [facility] | | + + + + + + | QRS AXIS | 132 | degrees | [facility] | | + + + + + + | T AXIS | 19 | degrees | [facility] | | + + + + + + | INTERPRETAT | Sinus rhythm with short | | [facility] | | | ION TEXT | [place] with premature | | | | | | supraventricular | | | | | | complexesRight bundle | | | | | | branch blockAbnormal | | | | | | ECGWhen compared with | | | | | | ECG of 01-OCT-2017 | | | | | | 22:26,QRS axis shifted | | | | | | rightT wave amplitude | | | | | | has decreased in | | | | | | Anterolateral leads and | | | | | | Inferior leadsPR | | | | | | interval has | | | | | | decreasedConfirmed by | | | | | | KEN ELLISON MD ([id number]) | | | | | | on 09/19/2019 6:48:05 AM | | | | + + [...] | | + +---------+ + + Procalcitonin (09/18/2019 2:45 PM PST) + + + + + + | Component | Value | Ref Range | Performed | Pathologist | | | | | At | Signature | + + + + + + | Procalciton | 0.11 | <=0.50 ng/mL | [facility] | | [...] ST. | [address] | [place] | [phone] | | [facility] | | [address] | | | - LABORATORY | | | | + + + + + Lactate Dehydrogenase (09/18/2019 2:45 PM PST) + + + + + + | Component | Value | Ref Range | Performed | Pathologist | | | | | At | Signature | + + + + + + | LDH TOTAL | 320 (H)Comment: New | 120 - 246 U/L | [facility] | | | | method in use as of | | [facility] | | | | November 09, [...] ST. | [address] | [place], [place] | [phone] | | [facility] | | [address] | | | - LABORATORY | | | | + + + + + C-Reactive Protein (09/18/2019 2:45 PM PST) + + + + + + | Component | Value | Ref Range | Performed | Pathologist | | | | | At | Signature | + + + + + + | CRP | 16.20 (H) | <10.00 mg/L | [facility] | | | | | [...] [address] | [place] | [phone] | | [facility] | | [address] | | | - LABORATORY | | | | + + + + + Sedimentation Rate (09/18/2019 2:45 PM PST) + +-------+ + + + | Component | Value | Ref Range | Performed | Pathologist | | | | | At | Signature | + +-------+ + + + | Erythrocyte | 27 | <30 mm/hr | [facility] | | | | | | [facility] | | | Sedimentati | | | [...] [address] | [place] | [phone] | | [facility] | | [address] | | | - LABORATORY | | | | + + + + + B Type Natriuretic Peptide (09/18/2019 2:45 PM PST) + + + + + + | Component | Value | Ref Range | Performed | Pathologist | | | | | At | Signature | + + + + + + | BNP | >5000 (H)Comment: New | <100 pg/mL | [facility] | | | | method in use as of | | [facility] | | | | November 09, 2018. [...] ST. | [address] | [place], [place] | [phone] | | [facility] | | [address] | | | - LABORATORY | | | | + + + + + Devinime INR (09/18/2019 2:45 PM PST) + + + + + + | Component | Value | Ref Range | Performed | Pathologist | | | | | At | Signature | + + + + + + | Prothrombin | 15.8 (H) | 11.3 - 13.9 | [facility] [...] + | [facility] | [address] | [place] | [phone] | | [facility] | | [address] | | | - LABORATORY | | | | + + + + + Troponin I (09/18/2019 2:45 PM PST) + + + + + + | Component | Value | Ref Range | Performed | Pathologist | | | | | At | Signature | + + + + + + | Troponin I | 0.11 (H)Comment: | <0.06 ng/mL | [facility] | [...] | | | | | | [employer] | | | | | [...] + | [facility] | [address] | [place] | [phone] | | [facility] | | [address] | | | - LABORATORY | | | | + + + + + Comprehensive Metabolic Panel (09/18/2019 2:45 PM PST) + + + + + + | Component | Value | Ref Range | Performed | Pathologist | | | | | At | Signature | + + + + + + | Na | 140 | 136 - 145 | [facility] | | | | | mmol/L | [facility] | | | | | | MEDICAL | | | | | | CENTER - | | | | | | LABORATORY | | + + + + + + | K | 5.1 | 3.4 - 5.1 | [facility] | [...] + + | CO2 | 25 | 20 - 31 mmol/L | [facility] | | | | | | [facility] | | | | | | MEDICAL | | | | | | CENTER - | | | | | | LABORATORY | | + + + + + + | Anion Gap | 12 | 3 - 16 mmol/L | [facility] | | | | | | [facility] | | | | | | MEDICAL | | | | | | CENTER - | | | | | | LABORATORY | | + + + + + + | Glucose | 196 (H) | 60 - 106 mg/dL | [facility] | | | | | | [facility] | | | | | | MEDICAL | | | | | | CENTER - | | | | | | LABORATORY | | + + + + + + | BUN | 44 (H) | 9 - 23 mg/dL | [facility] | | | | | | [facility] | | | | | | MEDICAL | | | | | | CENTER - | | | | | | LABORATORY | | + + + + + + | Creatinine | 6.03 (H) | 0.55 - 1.02 | [facility] | | | | | mg/dL | [facility] | | | | | | MEDICAL | | | | | | CENTER - | | | | | | LABORATORY | | + + + + + + | eGFR if not | 7 (L)Comment: GLOMERULAR | >=60 | [facility] | | | | FILTRATION | mL/min/1.73m2 | [facility] | | | [place] | RATE,ESTIMATED | | MEDICAL | | | | mL/min/1.81p7Viuh than | | CENTER - | | [...] + | Calcium | 8.1 (L) | 8.7 - 10.4 | [facility] | | | | | mg/dL | [facility] | | | | | | MEDICAL | | | | | | CENTER - | | | | | | LABORATORY | | + + + + + + | Albumin | 3.5 | 3.2 - 4.8 g/dL | [facility] | | | | | | [facility] | | | | | | MEDICAL | | | | | | CENTER - | | | | | | LABORATORY | | + + + + + + | Bilirubin | 0.2 (L) | 0.3 - 1.2 mg/dL | [facility] | | | Total | | | [facility] | | | | | | MEDICAL | | | | | | CENTER - | | | | | | LABORATORY | | + + + + + + | Total | 7.1 | 5.7 - 8.2 g/dL | [facility] | | | Protein | | | [facility] | | | | | | MEDICAL | | | | | | CENTER - | | | | | | LABORATORY | | + + + + + + | AST | 15 | 0 - 34 U/L | [facility] | | | | | | [facility] | | | | | | MEDICAL | | | | | | CENTER - | | | | | | LABORATORY | | + + + + + + | ALT | 14 | 10 - 49 U/L | [facility] | | | | | | [facility] | | | | | | MEDICAL | | | | | | CENTER - | | | | | | LABORATORY | | + + + + + + | Alkaline | 70 | 46 - 116 U/L | [facility] | | | Phosphatase | | | [facility] | | | | | | MEDICAL | | | | | | CENTER - | | | | | | LABORATORY | | + + + + + + | Globulin | 3.6 | 2.1 - 3.8 g/dL | [facility] [...] + + + + | BUN/Creatin | 7.3 | | [facility] | | | ine [...] + | [facility] | [address] | [place] | [phone] | | [facility] | | [id number] | | | - LABORATORY | | | | + + + + + CBC with Differential (09/18/2019 2:45 PM PST) + + + + + + | Component | Value | Ref Range | Performed | Pathologist | | | | | At | Signature | + + + + + + | White Blood | 5.2 | 4.0 - 11.0 K/uL | [facility] [...] + + + + | Hemoglobin | 11.6 | 11.5 - 16.0 | [facility] | | | | | g/dL | [facility] | | | | | | MEDICAL | | | | | | CENTER - | | | | | | LABORATORY | | + + + + + + | Hematocrit | 38.8 | 34.0 - 47.0 % | [facility] | | | | | | [facility] | | | | | | MEDICAL | | | | | | CENTER - | | | | | | LABORATORY | | + + + + + + | MCV | 102.9 (H) | 83.0 - 101.0 fL | [...] + + + + | MCHC | 29.9 (L) | 32.0 - 36.0 | [facility] | | | | | g/dL | [facility] | | | | | | MEDICAL | | | | | | CENTER - | | | | | | LABORATORY | | + + + + + + | RDW-CV | 16.4 (H) | <15.0 % | [facility] | | | | | | [facility] | | | | | | MEDICAL | | | | | | CENTER - | | | | | | LABORATORY | | + + + + + + | RDW-SD | 62.2 (H) | 35.1 - 46.3 fL | [facility] | | | [facility] | | | | | | MEDICAL | | | | | | CENTER - | | | | | | LABORATORY | | + + + + + + | Platelet | 246 | 140 - 440 K/uL | [facility] | | | Count | | | [facility] | | | | | | MEDICAL | | | | | | CENTER - | | | | | | LABORATORY | | + + + + + + | MPV | 10.4 | 6.5 - 12.4 fL | [facility] | | [facility] | | | | [facility] - | | | | | | LABORATORY | | + + + + + + | % | 74.0 | 45.0 - 82.0 % | [facility] | | | Neutrophils | | | [facility] | | | | | | [facility] | | | | | | C[facility] - | | | | | | LABORATORY | | + + + + + + | % | 16.9 (L) | 20.0 - 45.0 % | [...] + + + + | % | 3.1 | 0.0 - 5.0 % | [facility] [...] + + + | % Immature | 0.4 | 0.0 - 0.4 % | [facility] | | | Granulocyte | | | [facility] | | | s | | | MEDICAL | | | | | | CENTER - | | | | | | LABORATORY | | + + + + + + | Absolute | 3.87 | 1.80 - 8.50 | [facility] | | | Neutrophils | | K/uL | [facility] | | | | | | [facility] | | | | | | CENTER - | | | | | | LABORATORY | | + + + + + + | Absolute | 0.88 | 0.60 - 3.20 | [facility] | | | Lymphocytes | | K/uL | [facility] | | | | | | [facility] | | | | | | CENTER - | | | | | | LABORATORY | | + + + + + + | Absolute | 0.25 | 0.00 - 1.00 | [facility] | | | Monocytes | | K/uL | [facility] | | | | | | [facility] | | | | | | CENTER - | | | | | | LABORATORY | | + + + + + + | Absolute | 0.16 | 0.00 - 0.40 | [facility] | | | Eosinophils | | K/uL | [facility] | | | | | | MEDICAL | | | | | | CENTER - | | | | | | LABORATORY | | + + + + + + | Absolute | 0.04 | 0.00 - 0.10 | [facility] | [...] | | | | | WBCs | [facility] | | | | [...] [address] | [place] | [phone] | | [facility] | | [address] | | | - LABORATORY | | | | + + + + + documented in this encounter Visit Diagnoses + + | Diagnosis | + + | Type 2 diabetes mellitus with stage 4 chronic kidney disease, with long-term current | | use of insulin (HCC) | + + | ESRD (end stage renal disease) on dialysis (HCC) End stage renal disease | + + | Hypervolemia, unspecified hypervolemia type | + + | Hypothyroidism, unspecified type | + + | Dyspnea, unspecified type | + + | Pleural effusion on left Unspecified pleural effusion | + + | End stage renal failure on dialysis (HCC) End stage renal disease | + + | Pedal edema Edema | + + | Acute combined systolic and diastolic CHF, NYHA class 4 ([facility]) | + + | Essential hypertension Unspecified essential hypertension | + + | DM (diabetes mellitus), type 2 ([facility]) Type II or unspecified type diabetes mellitus | | without mention of complication, not stated as uncontrolled | + + | Non-compliance Personal history of noncompliance with medical treatment, presenting | | hazards to health | + + | Cerebral artery occlusion with cerebral infarction ([facility]) Unspecified cerebral artery | | occlusion with cerebral infarction | + + documented in this encounter Administered Medications + +--------+ +--------+------+------+ | Medication Order | MAR | Action | Dose | Rate | Site | | | Action | Date | | | | + +--------+ +--------+------+------+ | acetaminophen (TYLENOL) tablet | Given | 09/21/19 | 500 mg | | | | 500 mg 500 mg, Oral, PRN, Pain, | | 20 2:27 | | | | | Starting 09/18/19 at 1919 | | AM PST | | | | + +--------+ +--------+------+------+ +-------+ +--------+---+---+ | Given | 09/18/19 | 500 mg | | | | | 20 10:07 | | | | | | PM PST | | | | +-------+ +--------+---+---+ | Given | 09/18/19 | 500 mg | | | | | 20 7:24 | | | | | | PM PST | | | | +-------+ +--------+---+---+ + +---+ | | | + +---+ | albumin 25% IVPB 12.5 g 12.5 | | | g, Intravenous, Administer over | | | 30 Minutes, PRN, PRN | | | hypotension., Starting 09/19/19 | | | at 0835, For BP < 90 mmHg on | | | NxStage., Dialysis | | + +---+ | | | + +---+ | albuterol-ipratropium 2.5-0.5 | | | mg/3 mL nebulizer solution 3 mL | | | 3 mL, Nebulization, RT EVERY 4 | | | HOURS PRN, Shortness of Breath, | | | Starting 09/18/19 at 1724 | | + +---+ | | | + +---+ + +-------+ +------+---+---+ | amLODIPine (NORVASC) tablet 5 | Given | 09/20/19 | 5 mg | | | | mg 5 mg, Oral, 2 TIMES DAILY, | | 20 9:27 | | | | | First dose on 09/18/19 at 2100 | | PM PST | | | | + +-------+ +------+---+---+ +-------+ +------+---+---+ | Given | 09/20/19 | 5 mg | | | | | 20 8:37 | | | | | | AM PST | | | | +-------+ +------+---+---+ | Given | 09/19/19 | 5 mg | | | | | 20 8:39 | | | | | | PM PST | | | | +-------+ +------+---+---+ +---+---+ | | | +---+---+ + +-------+ +-------+---+---+ | aspirin EC tablet 81 mg 81 mg, | Given | 09/21/19 | 81 mg | | | | Oral, DAILY, First dose on Mon | | 20 10:28 | | | | | 09/18/19 at 2030, Do not cut or | | AM PST | | | | | crush., | | | | | | + +-------+ +-------+---+---+ +-------+ +-------+---+---+ | Given | 09/20/19 | 81 mg | | | | | 20 8:37 | | | | | | AM PST | | | | +-------+ +-------+---+---+ | Given | 09/18/19 | 81 mg | | | | | 20 9:59 | | | | | | PM PST | | | | +-------+ +-------+---+---+ +---+---+ | | | +---+---+ + +-------+ +-------+---+---+ | atorvaSTATin (LIPITOR) tablet | Given | 09/20/19 | 20 mg | | | | 20 mg 20 mg, Oral, NIGHTLY, | | 20 9:28 | | | | | First dose on 09/18/19 at 2100 | | PM PST | | | | + +-------+ +-------+---+---+ +-------+ +-------+---+---+ | Given | 09/19/19 | 20 mg | | | | | 20 8:39 | | | | | | PM PST | | | | +-------+ +-------+---+---+ | Given | 09/18/19 | 20 mg | | | | | 20 9:59 | | | | | | PM PST | | | | +-------+ +-------+---+---+ +---+---+ | | | +---+---+ + +-------+ +--------+---+---+ | calcium acetate (PHOSLO) | Given | 09/21/19 | 667 mg | | | | capsule 667 mg 667 mg, Oral, 3 | | 20 3:00 | | | | | TIMES DAILY WITH MEALS, First | | PM PST | | | | | dose on 09/18/19 at 2030 | | | | | | + +-------+ +--------+---+---+ +-------+ +--------+---+---+ | Given | 09/21/19 | 667 mg | | | | | 20 10:26 | | | | | | AM PST | | | | +-------+ +--------+---+---+ | Given | 09/20/19 | 667 mg | | | | | 20 8:37 | | | | | | AM PST | | | | +-------+ +--------+---+---+ +---+---+ | | | +---+---+ + +-------+ +-------+---+---+ | cetirizine (zyrTEC) tablet 10 | Given | 09/21/19 | 10 mg | | | | mg 10 mg, Oral, DAILY, First | | 20 10:27 | | | | | dose on 09/18/19 at 2030 | | AM PST | | | | + +-------+ +-------+---+---+ +-------+ +-------+---+---+ | Given | 09/20/19 | 10 mg | | | | | 20 8:36 | | | | | | AM PST | | | | +-------+ +-------+---+---+ | Given | 09/18/19 | 10 mg | | | | | 20 10:07 | | | | | | PM PST | | | | +-------+ +-------+---+---+ + +---+ | | | + +---+ | cloNIDine (CATAPRES) 0.1 mg/24 | | | hr 1 patch 1 patch, Transdermal, | | | WEEKLY, First dose on Wed09/18/19 | | | at 2030 | | + +---+ | | | + +---+ + +---------+ +---------+---+ + | cloNIDine (CATAPRES) 0.2 mg/24 | Patch | 09/18/19 | 1 patch | | Shoulder | | hr 1 patch 1 patch, Transdermal, | Applied | 20 10:00 | | | -Left | | WEEKLY, First dose on Wed09/18/19 | | PM PST | | | | | at 2030 | | | | | | + +---------+ +---------+---+ + + +---+ | | | + +---+ | dextrose 10% (D10W) infusion | | | at 50 mL/hr, Intravenous, | | | CONTINUOUS PRN, hypoglycemia, | | | Starting 09/18/19 at 2008, | | | Start infusion if unable [...] | | | Low Blood Sugar, Starting Mon | | | 09/18/19 at 2008, For blood glucose | | | 50-69 mg/dl - give 12.5 g For | | | blood glucose less than 50 mg/dl | | | - give 25 g, | | + +---+ | | | + +---+ | epoetin karthik-epbx (RETACRIT) | | | 10,000 units/mL injection 8,000 | | | Units 8,000 Units, Intravenous, | | | THREE TIMES WEEKLY (Once per day | | | on Wed), First dose | | | (after last reorder) on Wed | | | 09/22/19 at 2100, Keep in | | | refrigerator. Do not shake., | | | ESRD-related (i.e. dialysis) | | | indication? Yes | | + +---+ | | | + +---+ + +-------+ +--------+---+---+ | epoetin karthik-epbx (RETACRIT) | Given | 09/20/19 | 8,000 | | | | 40,000 units/mL injection 8,000 | | 20 12:27 | Units | | | | Units 8,000 Units, Intravenous, | | PM PST | | | | | THREE TIMES WEEKLY (Once per day | | | | | | | on Wed), First dose on | | | | | | | Wed09/20/19 at 2100, Keep in | | | | | | | refrigerator. Do not shake., | | | | | | | ESRD-related (i.e. dialysis) | | | | | | | indication? Yes | | | | | | + +-------+ +--------+---+---+ +---+---+ | | | +---+---+ + +---------+ +--------+ +---+ | furosemide (LASIX) 240 mg in | New Bag | 09/20/19 | 240 mg | 74 mL/hr | | | sodium chloride 0.9% 50 mL IVPB | | 20 4:14 | | | | | 240 mg, Intravenous, Administer | | PM PST | | | | | over 60 Minutes, 2 TIMES DAILY | | | | | | | 0800 & 1600, First dose on Mon | | | | | | | 09/18/19 at 2030, Maximum infusion | | | | | | | rate not to exceed 4 mg/minute., | | | | | | + +---------+ +--------+ +---+ +---------+ +--------+ +---+ | New Bag | 09/20/19 | 240 mg | 74 mL/hr | | | | 20 8:30 | | | | | | AM PST | | | | +---------+ +--------+ +---+ | New Bag | 09/19/19 | 240 mg | 74 mL/hr | | | | 20 4:15 | | | | | | PM PST | | | | +---------+ +--------+ +---+ +---+---+ | | | +---+---+ + +-------+ +-------+---+---+ | furosemide (LASIX) injection 80 | Given | 09/18/19 | 80 mg | | | | mg 80 mg, Intravenous, ONCE, | | 20 4:14 | | | | | 09/18/19 at 1540, For 1 dose | | PM PST | | | | + +-------+ +-------+---+---+ +---+---+ | | | +---+---+ + +-------+ +--------+---+---+ | gabapentin (NEURONTIN) capsule | Given | 09/21/19 | 200 mg | | | | 200 mg 200 mg, Oral, EVERY | | 20 10:26 | | | | | MORNING, First dose on 09/18/19 | | AM PST | | | | | at 2030 | | | | | | + +-------+ +--------+---+---+ +-------+ +--------+---+---+ | Given | 09/20/19 | 200 mg | | | | | 20 8:38 | | | | | | AM PST | | | | +-------+ +--------+---+---+ | Given | 09/19/19 | 200 mg | | | | | 20 4:15 | | | | | | PM PST | | | | +-------+ +--------+---+---+ +---+---+ | | | +---+---+ + +-------+ +--------+---+---+ | heparin (dialysis) 1,000 | Given | 09/19/19 | 1,000 | | | | units/mL injection 1,000 Units | | 20 9:26 | Units | | | | 1,000 Units, Intravenous, | | AM PST | | | | | DIALYSIS - ONCE, [facility] 09/19/19 at | | | | | | | 0900, For 1 dose, While on | | | | | | | NxStage Tx., Dialysis | | | | | | + +-------+ +--------+---+---+ +---+---+ | | | +---+---+ + +-------+ +--------+---+---+ | heparin (dialysis) 1,000 | Given | 09/21/19 | 1,000 | | | | units/mL injection 1,000 Units | | 20 7:19 | Units | | | | 1,000 Units, Intravenous, | | AM PST | | | | | DIALYSIS - ONCE, Dian 09/21/19 at | | | | | | | 0615, For 1 dose, While on | | | | | | | NxStage Tx., Dialysis | | | | | | + +-------+ +--------+---+---+ +---+---+ | | | +---+---+ + +---------+ + +---------+---+ | heparin in half-normal saline | New Bag | 09/19/19 | 400 | 4 mL/hr | | | 100 units/mL infusion 400 | | 20 9:26 | Units/hr | | | | Units/hr (4 mL/hr), at 4 mL/hr, | | AM PST | | | | | Intravenous, DIALYSIS - | | | | | | | CONTINUOUS, Starting 09/19/19 | | | | | | | at 0900, For 1 day, While on | | | | | | | NxStage Tx., Dialysis | | | | | | + +---------+ + +---------+---+ +---+---+ | | | +---+---+ + +---------+ + +---------+---+ | heparin in half-normal saline | New Bag | 09/21/19 | 500 | 5 mL/hr | | | 100 units/mL infusion 500 | | 20 7:20 | Units/hr | | | | Units/hr (5 mL/hr), at 5 mL/hr, | | AM PST | | | | | Intravenous, DIALYSIS - | | | | | | | CONTINUOUS, Starting Dian 09/21/19 | | | | | | | at 0615, For 1 day, While on | | | | | | | NxStage Tx., Dialysis | | | | | | + +---------+ + +---------+---+ +---+---+ | | | +---+---+ + +-------+ +--------+---+---+ | labetalol (NORMODYNE) tablet | Given | 09/20/19 | 300 mg | | | | 300 mg 300 mg, Oral, 2 TIMES | | 20 8:36 | | | | | DAILY, First dose on 09/18/19 | | AM PST | | | | | at 2100, HOLD IF SBP < 120, | | | | | | + +-------+ +--------+---+---+ +-------+ +--------+---+---+ | Given | 09/19/19 | 300 mg | | | | | 20 8:39 | | | | | | PM PST | | | | +-------+ +--------+---+---+ | Given | 09/18/19 | 300 mg | | | | | 20 9:57 | | | | | | PM PST | | | | +-------+ +--------+---+---+ +---+---+ | | | +---+---+ + +-------+ +--------+---+---+ | levothyroxine (SYNTHROID) | Given | 09/21/19 | 75 mcg | | | | tablet 75 mcg 75 mcg, Oral, | | 20 6:41 | | | | | DAILY BEFORE BREAKFAST, First | | AM PST | | | | | dose on Wed09/20/19 at 0700, Give | | | | | | | before breakfast., | | | | | | + +-------+ +--------+---+---+ +-------+ +--------+---+---+ | Given | 09/20/19 | 75 mcg | | | | | 20 6:45 | | | | | | AM PST | | | | +-------+ +--------+---+---+ | Given | 09/19/19 | 75 mcg | | | | | 20 6:08 | | | | | | AM PST | | | | +-------+ +--------+---+---+ +---+---+ | | | +---+---+ + +-------+ +-------+---+---+ | lidocaine (PF) 1% injection 5 | Given | 09/19/19 | 5 mLs | | | | mL 5 mL, Infiltration, ONCE, Tue | | 20 10:28 | | | | | 09/19/19 at 1045, For 1 dose | | AM PST | | | | + +-------+ +-------+---+---+ +---+---+ | | | +---+---+ + +-------+ +-------+---+---+ | lidocaine (PF) 1% injection 5 | Given | 09/21/19 | 5 mLs | | | | mL 5 mL, Infiltration, ONCE, Dian | | 20 7:31 | | | | | 09/21/19 at 0615, For 1 dose, | | AM PST | | | | | While on NxStage Tx., Dialysis | | | | | | + +-------+ +-------+---+---+ +---+---+ | | | +---+---+ + +-------+ +------+---+---+ | LORazepam (ATIVAN) tablet 1 mg | Given | 09/21/19 | 1 mg | | | | 1 mg, Oral, EVERY 12 HOURS PRN, | | 20 10:27 | | | | | Anxiety, Starting Dian 09/21/19 at | | AM PST | | | | | 0836 | | | | | | + +-------+ +------+---+---+ +---+---+ | | | +---+---+ + +-------+ +--------+---+---+ | losartan (COZAAR) tablet 100 mg | Given | 09/20/19 | 100 mg | | | | 100 mg, Oral, DAILY, First dose | | 20 8:38 | | | | | on 09/18/19 at 2030, HOLD FOR | | AM PST | | | | | SBP < 140, | | | | | | + +-------+ +--------+---+---+ +-------+ +--------+---+---+ | Given | 09/18/19 | 100 mg | | | | | 20 9:59 | | | | | | PM PST | | | | +-------+ +--------+---+---+ + +---+ | | | + +---+ | mannitol 20% IVPB 12.5 g 12.5 | | | g, Intravenous, Administer over | | | 30 Minutes, PRN, PRN hypotension, | | | Starting 09/19/19 at 0835, For | | | BP < 90 mmHg on NxStage. Do not | | | refrigerate. Watch for | | | precipitation. Use 0.22, 1.2, or | | | 5 micron in-line filter for | | | administration., Dialysis | | + +---+ | | | + +---+ + +-------+ +------+---+---+ | melatonin tablet 3 mg 3 mg, | Given | 09/18/19 | 3 mg | | | | Oral, NIGHTLY PRN, Insomnia, | | 20 9:58 | | | | | Starting Wed09/18/19 at 2056 | | PM PST | | | | + +-------+ +------+---+---+ +---+---+ | | | +---+---+ + +-------+ +-------+---+---+ | metOLazone tablet 10 mg 10 mg, | Given | 09/18/19 | 10 mg | | | | Oral, ONCE, Wed09/18/19 at 1900, | | 20 9:59 | | | | | For 1 dose | | PM PST | | | | + +-------+ +-------+---+---+ +---+---+ | | | +---+---+ + +-------+ +-------+---+---+ | metOLazone tablet 10 mg 10 mg, | Given | 09/21/19 | 10 mg | | | | Oral, 2 TIMES DAILY, First dose | | 20 6:42 | | | | | on Wed09/19/19 at 0900 | | AM PST | | | | + +-------+ +-------+---+---+ +-------+ +-------+---+---+ | Given | 09/20/19 | 10 mg | | | | | 20 4:14 | | | | | | PM PST | | | | +-------+ +-------+---+---+ | Given | 09/20/19 | 10 mg | | | | | 20 6:45 | | | | | | AM PST | | | | +-------+ +-------+---+---+ + +---+ | | | + +---+ | ondansetron (ZOFRAN) injection | | | 4 mg 4 mg, Intravenous, EVERY 6 | | | HOURS PRN, Nausea, Vomiting, | | | Starting 09/18/19 at 2057 | | + +---+ | | | + +---+ + +-------+ + +---+---+ | oxyCODONE-acetaminophen | Given | 09/18/19 | 1 tablet | | | | (PERCOCET) 5-325 mg per tablet 1 | | 20 7:45 | | | | | tablet 1 tablet, Oral, ONCE, Mon | | PM PST | | | | | 09/18/19 at 1945, For 1 dose | | | | | | + +-------+ + +---+---+ +---+---+ | | | +---+---+ + +-------+ + +---+---+ | oxyCODONE-acetaminophen | Given | 09/19/19 | 1 tablet | | | | (PERCOCET) 5-325 mg per tablet 1 | | 20 8:39 | | | | | tablet 1 tablet, Oral, EVERY 4 | | PM PST | | | | | HOURS PRN, Pain, Starting Tue | | | | | | | 09/19/19 at 0836 | | | | | | + +-------+ + +---+---+ +-------+ + +---+---+ | Given | 09/19/19 | 1 tablet | | | | | 20 4:15 | | | | | | PM PST | | | | +-------+ + +---+---+ | Given | 09/19/19 | 1 tablet | | | | | 20 10:03 | | | | | | AM PST | | | | +-------+ + +---+---+ +---+---+ | | | +---+---+ + +-------+ + +---+---+ | oxyCODONE-acetaminophen | Given | 09/21/19 | 1 tablet | | | | (PERCOCET) 5-325 mg per tablet 1 | | 20 10:28 | | | | | tablet 1 tablet, Oral, EVERY 6 | | AM PST | | | | | HOURS PRN, Pain, Starting Tue | | | | | | | 09/19/19 at 2115 | | | | | | + +-------+ + +---+---+ +-------+ + +---+---+ | Given | 09/20/19 | 1 tablet | | | | | 20 10:50 | | | | | | PM PST | | | | +-------+ + +---+---+ | Given | 09/20/19 | 1 tablet | | | | | 20 10:50 | | | | | | AM PST | | | | +-------+ + +---+---+ +---+---+ | | | +---+---+ + +-------+ +-------+---+---+ | pantoprazole (PROTONIX) DR | Given | 09/21/19 | 40 mg | | | | tablet 40 mg 40 mg, Oral, DAILY | | 20 6:41 | | | | | BEFORE BREAKFAST, First dose on | | AM PST | | | | | 09/20/19 at 0700, Do not cut or | | | | | | | crush., Indication: GERD | | | | | | + +-------+ +-------+---+---+ +-------+ +-------+---+---+ | Given | 09/20/19 | 40 mg | | | | | 20 6:45 | | | | | | AM PST | | | | +-------+ +-------+---+---+ | Given | 09/19/19 | 40 mg | | | | | 20 6:10 | | | | | | AM PST | | | | +-------+ +-------+---+---+ + +---+ | | | + +---+ | sodium chloride 0.9% (NS) | | | infusion 250 mL at 100 mL/hr, | | | Intravenous, EVERY 30 MIN PRN, | | | PRN hypotension., Starting Tue | | | 09/19/19 at 0835, For BP < 90 | | | mmHg on NxStage., Dialysis | | + +---+ | | | + +---+ documented in this encounter
--- OUTSIDE RECORDS SUMMARY | ~2020-03-21 | XMS | Encounter Summary ---
Demographics + + + | Address | [address] | | | [place] [address] | + + + | Home Phone | | + + + | Preferred Language | Unknown | + + + | Marital Status | Single | + + + | Nondenominational Affiliation | Unknown | + + + | Race | Unknown | + + + | Ethnic Group | Unknown | + + + Author + + + | Author | [facility] | | | and [place] | + + + | Organization | [facility] | | | and [place] | + + + | Address | Unknown | + + + | Phone | Unavailable | + + + Support + + + + + | Name | Relationship | Address | Phone | + + + + + | [place] T[place] | [place] | [phone] | | | | | [place], [place] | | | | | [address] | | + + + + + [...] Team Providers + +------+ + | Care Weatherization Operations Manager Name | Role | Phone | + +------+ + PCP | Unavailable | + +------+ + Encounter Details +--------+ + + + + | Date | Type | Department | Care Team | Description | +--------+ + + + + | 12/27/ | Documentati | [facility] | Gopi Muñoz | | | 2019 | on | NEPHROLOGY [address] | M, DO [address] | | | | | [address] | [address] | | | | | [place] | [place] [phone] | | | | | [address] | [phone] | | | | | [phone] | | | +--------+ + + + [...] this encounter Progress Notes Tatiana Rendon - 12/27/2018 9:13 AM PDT[facility] sign ed and dated 12/23/[address] Muñoz. Sent to scan. documented in this encounter Plan of Treatment Not on filedocumented as of this encounter Visit Diagnoses Not on filedocumented in this encounter"
--- OUTSIDE RECORDS SUMMARY | ~2020-03-21 | XMS | Encounter Summary ---
Demographics + + + | Address | [address] | | | [place] [address] | + + + | Home Phone [...] Author | [facility] | | | and [place] | + + + | Organization | [facility] | | | and [place] | + + + | Address | Unknown | + + + | Phone | Unavailable | + + + Support + + + + + | Name | Relationship | Address | Phone | + + + + + | India Tilley | [place] | [phone] | | | | | [place], [place] | | | | | [address] | | + + + + + [...] Team Providers + +------+ + | Care Bell Ringer Name | Role | Phone | + +------+ + PCP | Unavailable | + +------+ + Encounter Details +--------+ + + + + | Date | Type | Department | Care Team | Description | +--------+ + + + + | 11/24/ | Hospital | [facility] | | | | 2006 - | Encounter | [facility] | | | | | | [place] | | | | 12/11/ | | [place] | | | | 2006 | | [address] | | | | | | [phone] | | | +--------+ + + + [...]
--- OUTSIDE RECORDS SUMMARY | ~2020-03-21 | XMS | Encounter Summary ---
Demographics + + + | Address | [address] | | | [place] [address] | + + + | Home Phone | | + + + | Preferred Language | Unknown | + + + | Marital Status | Single | + + + | Gnosticism Affiliation | Unknown | + + + | Race | Unknown | + + + | Ethnic Group | Unknown | + + + Author + + + | Author | [facility] | | | and [place] | + + + | Organization | [facility] | | | and [place] | + + + | Address | Unknown | + + + | Phone | Unavailable | + + + Support + + + + + | Name | Relationship | Address | Phone | + + + + + | India Tilley | [place] | [phone] | | | | | [place], [place] | | | | | [phone] | | + + + + + [...] Team Providers + +------+ + | Care Atmospheric Physicist Name | Role | Phone | + +------+ + PCP | Unavailable | + +------+ + Encounter Details +--------+ + + + + | Date | Type | Department | Care Team | Description | +--------+ + + + + | 01/05/ | Hospital | [facility] | Scott Koroma, | Closed fracture of | | 2019 | Encounter | [facility] | [address] | neck of right femur, | | | | [address] | [place], [place] | initial encounter | | | | [place] | [id number] | ([facility]); Right hip | | | | [address] | | pain | | | | [phone] | | | +--------+ + + + [...] section. | | | | | encounter ([facility]) | | | | | | Right [...] + | Julian, Rad Results In - 01/05/2019 3:20 PM PDT [...]
--- OUTSIDE RECORDS SUMMARY | ~2020-03-21 | XMS | Encounter Summary ---
Demographics + + + | Address | [address] | | | [place] [address] | + + + | Home Phone [...] | Author | [facility] | | | and [place] | + + + | Organization | [facility] | | | and [place] | + + + | Address | Unknown | + + + | Phone | Unavailable | + + + Support + + + + + | Name | Relationship | Address | Phone | + + + + + | India Tilley | ECON | [id number] | | | | | [place], [place] | | | | | [address] | | + + + + + [...] Team Providers + +------+ + | Care Natural Science Manager Name | Role | Phone | + +------+ + PCP | Unavailable | + +------+ + Reason for Visit + +--------+ + | Reason | Onset | Comments | | | Date | | + +--------+ + | Hospital Follow-up | 04/04/ | | | | 2019 | | + +--------+ + Encounter Details +--------+ + + + + | Date | Type | Department | Care Team | Description | +--------+ + + + + | 04/04/ | Telephone | [facility] | Zari Azul | Hospital Follow-up | | 2019 | | Internal Medicine | [facility] | | | | | [facility] [address] | | | | | [address] | | | | | | [phone] | | | | | | [phone] | | | +--------+ + + + [...] this encounter Miscellaneous Notes Telephone Encounter - Zari Azul RN - 04/04/2019 3:30 PM PDTAttempted a hospital follow up call. Unable to complete call due to her phone call restrictions. Left message on emergency contact number with CTC contact number if patient has any concerns. Confirmed that DC Summary Sent to PCP. Zari Azul documented in this encounter Plan of Treatment Not on filedocumented as of this encounter Visit Diagnoses Not on filedocumented in this encounter"
--- OUTSIDE RECORDS SUMMARY | ~2020-03-21 | XMS | Encounter Summary ---
Demographics + + + | Address | [address] | | | [place] [address] | + + + | Home Phone [...] | Author | [facility] | | | and Kamaljitana | + + + | Organization | [facility] | | | and [place] | + + + | Address | Unknown | + + + | Phone | Unavailable | + + + Support + + + + + | Name | Relationship | Address | Phone | + + + + + | India Tilley | ECON | [phone] | | | | | [place], [place] | | | | | [address] | | + + + + + [...] Team Providers + +------+ + | Care Program Director Air Talent Name | Role | Phone | + +------+ + PCP | Unavailable | + +------+ + Reason for Visit +---------+--------+ + | Reason | Onset | Comments | | | Date | | +---------+--------+ + | Post Op | 02/04/ | dialysis catheter fell out. | | | 2018 | | +---------+--------+ + Encounter Details +--------+ + + + + | Date | Type | Department | Care Team | Description | +--------+ + + + + | 02/04/ | Telephone | [facility] | Santos Stephenson | Post Op (dialysis | | 2017 | | SURGERY [address] | MD [place], FACS [address] | catheter fell out. ) | | | | [address] [place], [place] | [facility] | | | | | [address] | [place] [address] | | | | | [phone] | [phone] | | | | | | | [...] Telephone Encounter - Mike Pearson RN - 02/04/2018 8:[address] Claire acosta's office to coordinate front line supervisor surgery for dialysis catheter placement as we have no avai lable providers or OR time until 02/08/18. [address]. Stephenson is not in to see the patien t, the only provider in is Dr. Quiros who doesn't do dialysis catheters. Advised we see pat ient 02/10/18 for PO and possible clearance to use fistula but that would be too far out to w ait on dialysis. Advised we can't use the fistula until Dr. Stephenson gives ok. Dori verbalized her understanding, will let Dr. Muñoz know to get stat surgery for dialysis catheter bucky cement. Advised Dr. Navarro is front line supervisor this weekend and is in the OR currently today. Dori al so stated that she would be calling the patient to update on plans/needs for the patient. El ectronically signed by Mike Pearson RN at 02/04/2018 8:33 AM PDTTelephone Encounter - Tahira Mensah - 02/04/2018 8:03 AM PDTCatheter fell out yesterday, went to Emergency at [facility] in [place]. She said that Cleaned tagged it, and they had never seen one like she had and could not reinsert it. She called the dialysis center at [facility] and they to ld her to get in touch with Dr. Stephenson. If you could call her and advise her what to do next she would appreciate it. doc umented in this encounter Plan of Treatment Not on filedocumented as of this encounter Visit Diagnoses Not on filedocumented in this encounter"
--- OUTSIDE RECORDS SUMMARY | ~2020-03-21 | XMS | Encounter Summary ---
Demographics + + + | Address | [address] | | | [place] [address] | + + + | Home Phone [...] Author | [facility] | | | and [place]it[place] | + + + | Organization | [facility] | | | and [...] [place], [place] | | | | | [address] | | + + + + + [...] Team Providers + +------+ + | Care Twisting Machine Operator Name | Role | Phone [...] | | [place] | [place] [id number] | | | | | [address] | [phone] | | | | | [phone] | | | +--------+ + + + [...]
--- OUTSIDE RECORDS SUMMARY | ~2020-03-21 | XMS | Encounter Summary ---
Demographics + + + | Address | [address] | | | [place] [address] | + + + | Home Phone [...] | Author | [facility] | | | and [place]it[place] | + + + | Organization | [facility] | | | and [place] | + + + | Address | Unknown | + + + | Phone | Unavailable | + + + Support + + + + + | Name | Relationship | Address | Phone | + + + + + | India Tilley | ECON | [phone] | | | | | [place], [place] | | | | | [address] | | + + + + + [...] Team Providers + +------+ + | Care Commissioned Sales Associate Name | Role | Phone [...] | | | | | | (FORMERLY [facility]) | | | +--------+--------+ + + + + Encounter Details +--------+ + + + + | Date | Type | Department | Care Team | Description | +--------+ + + + + | 12/04/ | Anesthesia | [facility] | Petros Garrido | | | 2019 | Event | MED CTR OR INTRA OP | MD Zule[address] | | | | | [address] | [facility] | | | | | [place] | [place] [address] | | | | | [address] | [phone] | | | | | [phone] | | | +--------+ + + + + Anesthesia Record + + + + + | Procedure Name | Responsible | Anesthesia Start | Anesthesia Stop Time | | | Anesthesiologist | Time | | + + + + + | ORIF HIP | Tor Waldolucien Garrido, | 12/04/18 1610 | 12/04/18 1732 | | W/CANNULATED SCREWS | MD | | | | (Right Hip) | [...] +----+---+ + + | | 1 | [place] | | | | 6 | 43-degrees | | | | 3 | | | | | 1 | | | +----+---+ + + | | 1 | First | | | | 6 | Inc/Proc St | | | | 3 | | | | | 4 | | | +----+---+ + + | | 1 | [place] off | | | | 6 | [...] 12/09/18 182 by | | eral | [id number] catheter system; | Priti Burleson RN | [...] | 12/04/18 161 by Tor | 12/04/18 1703 by Tor | | | Placement Time: [...] | 12/04/18; 1630 (created via | 12/04/18 1630 by Tor | 12/04/181657 by Tor | | | procedure documentation); | Zuleima Garrido MD | Zuleima Garrido MD | | | orogastric; 18; 50; center mouth; | | | | | other (see comments); stomach; | | | | | gastric decompression; 12/04/18; | | | | | 1658 | | | +--------+ + + + | Wound | 12/04/18; 1641; Incision; Right; | 12/04/18 164 by | 12/09/181824 by | | | [...] encounter OR Notes Anesthesia Postprocedure Evaluation - Petros Garrido MD - 12/04/2018 5:34 PM PDTForm atting of this note might be different from the original. ANESTHESIA POSTANESTHESIA EVALUATION Estefani Tilley 73 y.o. female 1945 [id number] Procedure(s) ORIF HIP W/CANNULATED SCREWS (Right Hip) Cooperates? Yes Mental Status Performs simple tasks. Respiratory Satisfactory - Airway patent (self maintained). Cardiovascular Unsatisfactory - Cardiovascular tests or treatment ordered Temperature Satisfactory Pain Satisfactory N/V Control Satisfactory Hydration Satisfactory - No signs of dehydration Complications None apparent Vitals: 12/04/18 1513 12/04/18 1528 12/04/18 1714 BP: 197/75 184/80 179/63 Pulse: 75 78 62 Temp: 37.2 C (99 F) Resp: 18 SpO2: 92% 93% 99% Electronically signed by Petros Garrido MD 12/04/2018 17:34 [facility] nesthesia Procedure Notes - Petros Garrido MD - 12/04/2018 4: 44 PM PDTAssociated Order(s): ANE AIRWAY NOTEAnesthesia Airway Placement 12/04/2018 16:15 Preprocedure check: patient identified, oxygen, airway assessed, patient reassessment prior to induction, airway equipment checked and suction Rapid Sequence Induction: yes Mask ventilation: N/A External maneuver: cricoid pressure Successful technique: videoscope Laryngoscope blade size: 3 Airway grade: 1 (Full view of glottis) Other equipment: stylette Attempts: 1 Airway type: endotracheal Size: 6.5 Cuffed: cuffed Route, reference point: right side of mouth Tube depth: 21 cm Tube secured with: adhesive tape Trauma: none Tube placement verification: carbon dioxide detection Performing provider: PETROS GARRIDO Electronically Signed by: Petros Garrido MD ESig date/time: 11/12 16:44 nesthesia Proced ure Petros Goodman MD - 12/04/2018 4:40 PM PDTAssociated Order(s): ANE NASO/O RAL TUBE NOTEnaso/orogastric Placement Note 12/04/2018 16:30 Indication: gastric decompression and per surgeon request Tube type: Orogastric Size: 18 Fr Depth: 50 cm Location: mouth Pain prevention: general anesthesia Destination: stomach Tube position checked by: content aspiration Suction: low suction Placed by: PETROS GARRIDO Electronically Signed by:Petros Garrido MD ESig date/time: 12/04/2018 16:40 nesthesia Proced ure Petros Goodman MD - 12/04/2018 4:36 PM PDTAssociated Order(s): ANE NERVE BLOCK CATHETER NOTEPerineural Procedure Note 12/04/2018 16:10 Nerve block: obturator Laterality: right Provider requested procedure: Dr. Koroma Indication: postoperative analgesia Preprocedure check: patient identified, procedure and rescue equipment checked, preevaluati on including airway assessment complete, risks/benefits discussed, consent obtained, timeout performed, reassessment prior to procedure and monitors applied Patient position: supine Preparation: chlorhexidine/isopropyl alcohol, 1% lidocaine infiltration Technique: ultrasound Radiology image stored in patient's chart: ultrasound Needle: echogenic, stimulating, insulated and short-bevel Needle size: 21 g Needle length: 4 in Medication administered through: needle Negative findings: no blood aspirated and no paresthesia Total volume of local anesthetic solution administered: 15 mL Attempts: 1 Ease of procedure: easy Comments: SpO2, NBP monitored during procedure and recorded in anesthesia record. Ultrasou nd used to identify femoral artery and femoral vein, then probe moved medially to identify a dductors longus, brevus and medius muscles. Under continuous ultrasound guidance the Stimu plex needle was advanced to the plane between adductors longus and brevis to target the ante rior branch of the obturator nerve, with needle tip visualized throughout. Local anestheti c was injected in 5 ml increments in the fascial plane with intermittent negative aspiration and no paresthesias. Under continuous ultrasound guidance the Stimuplex needle was then adv anced to the plane between adductors brevis and medius to target the posterior branch of the obturator nerve, with needle tip visualized throughout. Local anesthetic was injected in 5 ml increments in the fascial plane with intermittent negative aspiration and no paresthesias . Ultrasound image placed in chart. Please see anesthesia record or flowsheet for vital sign documentation and see anesthesia r ecord or MAR for all medication documentation. Performing provider: PETROS GARRIDO Electronically Signed by: Petros Garrido MD ESig date/time: 12/04/2018 16:36 nesthesia Proced ure Notes - Petros Garrido MD - 12/04/2018 4:35 PM PDTAssociated Order(s): ANE NERVE BLOCK CATHETER NOTEPerineural Procedure Note 12/04/2018 16:09 Nerve block: femoral Laterality: right Continuous block with catheter: No Provider requested procedure: Dr. Koroma Indication: postoperative analgesia Preprocedure check: patient identified, procedure and rescue equipment checked, preevaluati on including airway assessment complete, risks/benefits discussed, consent obtained, timeout performed, reassessment prior to procedure and monitors applied Patient position: supine Preparation: chlorhexidine/isopropyl alcohol, 1% lidocaine infiltration Technique: ultrasound Radiology image stored in patient's chart: ultrasound Needle: echogenic, stimulating, insulated and short-bevel Needle size: 21 g Needle length: 4 in Medication administered through: needle Negative findings: no blood aspirated and no paresthesia Total volume of local anesthetic solution administered: 15 mL Attempts: 1 Ease of procedure: easy Comments: SpO2, NBP monitored during procedure and recorded in anesthesia record. Ultrasou nd used to identify femoral artery and femoral nerve. Under ultrasound guidance, a 21 gauge needle was inserted and placed in close proximity to the femoral nerve. Ultrasound was also used to visualize the spread of the anesthetic in close proximity to the nerve being blocked with needle tip visualized throughout Local anesthetic was injected in 5 ml increments maria luz und the femoral nerve with intermittent negative aspiration and no paresthesias. The nerve a ppeared anatomically normal, and there were no apparent abnormal pathological findings. A pe rmanent ultrasound image was saved in the patient's record. Please see anesthesia record or flowsheet for vital sign documentation and see anesthesia r ecord or MAR for all medication documentation. Performing provider: PETROS GARRIDO Electronically Signed by: Petros Garrido MD ESig date/time: 12/04/2018 16:35 nesthesia Prepro cedure Evaluation - Petros Garrido MD - 12/04/2018 3:42 PM PDT ANESTHESIA PREANESTHESIA EVALUATION Estefani Zuniga Jarek 73 y.o. female 1945 [id number] Procedure(s): ORIF HIP W/CANNULATED SCREWS (Right Hip) Medical history, anesthesia, medications, allergy, NPO status verified histories reviewed. ECG reviewed. Labs reviewed. Review of Systems / Med History Anesthesia History (-) PONV, difficult intubation, malignant hyperthermia Cardiovascular 10/31 echo Conclusions Summary 1. Mild left atrial dilatation. [...] 9. No obvious vegetation/endocarditis seen on this study. Results for orders placed or performed during the hospital encounter of 10/01/17 -ECG 12 lead Result Value Ref Ra nge INTERPRETATION TEXT Sinus rhythm with premature atrial complexes Right bundle branch block Prolonged QTc Abnormal ECG No previous ECGs available Confirmed by TERRA HOLDEN, KEN ([id number]) on 10/02/2017 7:49:20 AM . (+) hypertension, pulmonary hypertension (mild to mod on echo 10/31)(-) CAD, angina (+) Dysr hythmias (RBBB) Pulmonary No acute pulmonary concerns. (-) asthma, COPD(+) sleep apnea: Untreated Neurology (+) CVA (no resid sx), neuropathy, back pain, weakness (L sided weakness LLE), numbness/tin gling (fingers and feet), chronic pain Psychology (+) depression, substance abuse Renal Lab Results Component Value Date CREA 3.97 (H) 12/04/2018 BUN 19 12/04/2018 NA 138 12/04/2018 K 3.4 12/04/2018 CL 103 12/04/2018 CO2 29 12/04/2018 . (+) end-stage renal disease , Dialysis hemodialysis , Last dialysis: MWF 12/02/18 Gastrointestinal/Hepatic (+) hyperlipidemia Endocrine (+) hypothyroidism (+) Diabetes: type 2, IDDM Other Lab Results Component Value Date WBC 10.5 12/04/2018 HGB 11.2 (L) 12/04/2018 HCT 35.9 12/04/2018 MCV 95.0 12/04/2018 PLT 245 12/04/2018 . (+) anemia, arthritis Cancer (+) breast cancer (L) Physical Exam Airway MP II, TM >3 FB, Mouth opening >2 FB. Neck: full ROM, extends >30 degrees. Jaw protrus ion normal. Dental ; (+) missing teeth. CV Rhythm regular. Rate normal. (+) murmur. Pulm Clear to auscultation bilaterally. Neuro Grossly normal. Other RUE fistula thrill Anesthesia Plan ASA 3 (ESRD, CVA, IDDM)E Type: General. Induction: Intravenous. Potential problems: None anticipated. Monitors: Standard ASA monitors. Consent statement:Anesthetic plan, alternatives, risks and benefits discussed with patient. Risks discussed included (but were not limited to): sore throat, nausea, perioperative CV e vents, infection, respiratory events, heart problems, pain, failed or inadequate block, blee ding, nerve damage. Consenting person understands and agrees to proceed. PARQ. Multimodal pain control including acetaminophen and gabapentin or pregabalin unless there i s an allergy or contraindication. PARQ for femoral and obturator nerve block under ultrasoun d guidance for post-op pain control as requested by surgeon. Pt agrees to GETA/PNB. . Electronically Signed by: Petros Garrido MD ESi date/time: 12/04/2018 15:42 documented in thi s encounter Miscellaneous Notes Addendum Note - Petros Garrido MD - 12/04/2018 5:44 PM PDTFormatting of this note mi ght be different from the original. Addendum created 12/04/18 174 by Petros Garrido MD Anesthesia Intra Devices edited, Patient device edited, Patient device removed ddendum Note - Petros Garrido MD - 12/04/2018 5:38 PM PDT Addendum created 12/04/18 173 by Petros Garrido MD Order list changed, Order sets accessed ddendum Note - Petros Garrido MD - 12/04/2018 5:35 PM PDT Addendum created 12/04/18 173 by Petros Garrido MD Anesthesia Intra Flowsheets edited documented in th is encounter Plan of [...] | verification: carbon dioxide detection Performing provider: RADHIKA, | | | PETROS ECHOLS Electronically Signed by: Petros Garrido MD | | | ESig date/time: 12/04/2018 16:44 | | | | | + + + + + | Procedure Note | + + | Petors Garrido MD - 12/04/2018 4:44 PM PDT [...] Signed by: Petros Pulido | | MD Eleazar Garrido date/time: 12/04/2018 16:44 | |Other equipment: stylette [...] |Electronically Signed by: MD Eleazar Jaramillo date/time: 11/12 16:44 | | | + [...] nerve being blocked with needle tip visualized throu ghout Local anesthetic was | |injected in 5 [...] Signed by: Petros Garrido MD ESig date/time: 12/04/2018 16:35 | + + documented [...] | | | | | Breath, Starting 12/04/18 at | | PM PDT | | | | | 1701, Anesthesia Intra-op | | | | | | + +--------+ +---------+------+------+ +---+---+ | | | +---+---+ + +-------+ +-----+---+---+ | ceFAZolin (ANCEF, KEFZOL) | Given | 12/05/19 | 1 g | | | | injection Intravenous, PRN, | | 19 4:20 | | | | | Starting 12/04/18 at 1620, | | PM PDT | | | | | Anesthesia Intra-op | | | | | | + +-------+ +-----+---+---+ +---+---+ | | | +---+---+ + +-------+ +-------+---+---+ | dexamethasone (PF) 10 mg/mL | Given | 12/05/19 | 10 mg | | | | injection Intravenous, PRN, | | 19 4:18 | | | | | Starting [place] 12/04/18 at 1618, | | PM PDT [...] 4:04 | | | | | Starting 12/04/18 at 1604, | | PM PDT | | | | | Anesthesia Intra-op | | | | | | + +---------+ +---+---+---+ +---+---+ | | | +---+---+ + +-------+ +-------+---+---+ | lidocaine (PF) 2% injection | Given | 12/05/19 | 5 mLs | | | | PRN, Starting [place] 12/04/18 at | | 19 4:10 | [...] | ondansetron (ZOFRAN) injection | Given | 12/05/19 | 4 mg | | | | [...] | | | | | PRN, Starting [place] 12/04/18 at | | PM PDT | [...] 4:14 | | | | | Starting [place] 12/04/18 at 1614, | | PM PDT | | | | | Anesthesia Intra-op | | | | | | + +-------+ +--------+---+---+ +---+---+ | | | +---+---+ documented in this encounter"
--- OUTSIDE RECORDS SUMMARY | ~2020-03-21 | XMS | Encounter Summary ---
Demographics + + + | Address | [address] | | | [place] [address] | + + + | Home Phone [...] Author | [facility] | | | and Kamaljitana | + + + | Organization | [facility] | | | and [place] | + + + | Address | Unknown | + + + | Phone | Unavailable | + + + Support + + + + + | Name | Relationship | Address | Phone | + + + + + | India Tilley | ECON | [phone] | | | | | [place], [place] | | | | | [address] | | + + + + + [...] Team Providers + +------+ + | Care Stock Controller Name | Role | Phone | [...] [facility] | MD Floyd . | | | | | INTRA OP [address] [facility] | [phone] | | | | | [place] | | | | | | [phone] | | | | | | [phone] | | | +--------+---------+ + + + [...] + + + | Blood Pressure | 154/64 | 03/24/2019 5:00 PM | | | | | PDT | | + + + + + | Pulse | 66 | 03/24/2019 5:00 PM | | | | | PDT | | + + + + + | Temperature | 35.8 C (96.4 F) | 03/24/2019 3:29 PM | | | | | PDT | | + + + + + | Respiratory Rate | 18 | 03/24/2019 3:29 PM | | | | | PDT | | + + + + + | Oxygen Saturation | 95% | 03/24/2019 3:29 PM | | | | | PDT | | + + + + + | Inhaled Oxygen | - | - | | | Concentration | | | | + + + + + | Weight | 63.5 kg (140 lb) | 03/24/2019 11:05 AM | | | [...] as of this encounter Discharge Summaries Michelle Lopez, - 03/31/2019 11:40 AM PDT Patient: Estefani Tilley Date of : 1945 PCP: Francisca Womack PA-C Admit Date: 03/24/2019 Discharge Date: 03/31/2019 Date of Service: 03/31/2019 Issues Requiring Follow Up after Discharge: -Completion of IV antibiotics x 6 weeks through 05/04 -Weekly CBC, CMP, CRP -Will need PICC removal after completion of IV abx Follow Up Appointments: [facility] [address] [phone] [facility] [address] [place] [phone] [facility] [address] [facility] [phone] Discharge Disposition: Home with Home Health Consultants This Admission: ID, Nephrology Hospital Course: 73-year-old female with history of ESRD on hemodialysis, hypertension, type 2 diabetes, hyp othyroidism, chronic anemia, hyperlipidemia with a history of stroke transferred from [facility] for evaluation of T11-T12 lesion noted on [...] had planned to go to SNF ([facility] in [place] - of which has accepted her [...] dialysis days after dialysis Osteomyelitis/Discitis of T11, [id number] -MRI spine 03/23/19: "mild paravertebral soft tissue [...] dialysis patient - has OP clinic in [place] already Macrocytic anemia likely secondary to-likely anemia [...] Value Units Date/Time Culture, Aerobic + Anaerobic [[id number]] Collected: 03/24/19 8061 Order Status: Completed Lab Status: Final result Updated: 03/29/19717 Specimen: Body Fluid from Vertebrae, Thoracic FINAL REPORT -- No Growth No anaerobes isolated Gram Stain Few Neutrophils No squamous epithelial cells seen No organisms seen Comment: Performed by [facility] [address] [place] [address] Gram Stain [[id number]] Collected: 03/24/19 151 Order Status: Canceled Lab Status: No result Updated: 03/24/19 151 Specimen: Body Fluid from Vertebrae, Thoracic Culture, AFB Smear [[id number]] Collected: 03/24/19 151 Order Status: Completed Lab Status: Preliminary result Updated: 03/25/19 1054 Specimen: Body Fluid from Vertebrae, Thoracic AFB Smear Result No Acid Fast Bacilli Seen Comment: Performed by [facility] [address] [place] [address] [address] Culture, Fungus, Smear [[id number]] Collected: 03/24/19 151 Order Status: Completed Lab Status: Preliminary result Updated: 03/25/19 1039 Specimen: Body Fluid from Vertebrae, Thoracic CALCOFLUOR No fungal elements seen Comment: Performed by [facility] [facility] [address] [place] [address] Culture, Blood [[id number]] Collected: 03/23/19 2333 Order Status: Completed Lab Status: Final result Updated: 03/28/19 2352 Specimen: Blood Culture No growth after 5 days incubation. Culture, Blood [[id number]] Collected: 03/23/19 2255 Order Status: Completed Lab [...] this chart may have been created with [employer] voice recognition software. Occasi onal wrong-word or [...] 03/31/2019 5:42 PM PDTPatient left with family, [facility] supplies and i nstructions received before discharge and RX's filled at outpt pharmacy. VSS, ambulating wit h SBA, A&O x4, accepting of discharge. Dialysis completed this AM. Pain controlled with q4 o xy, LD 1400. Home health will f/u tomorrow. AVS reviewed and sent with patient, verbalized u nderstanding. Merry Hess MSW - 03/31/2019 11:05 AM PDTSOCIAL WORK PLAN: Home with [facility] NEXT STEPS: 1. Pt to follow up with [facility] 2. [facility] to follow up with pt at [place] INTERVENTION: SW spoke with [facility], pt has a $2.50 out of pocket cost weekly, pt is agreeable to pay for this. Therefore pt will dc today with [facility]. ROBIN provided [facility] with hard script for IV abx. SW faxed over HH order to [facility], ROBIN faxed over IV vanco script to [facility]. [facility] notified of pt's dc home. notified. Candie to meet with pt later this afternoon for teach. SW provided pt with 3 gas cards to assist with transportation. No further dc needs identified. SW received call from [facility] clinic that they cannot provide IV Vanco as Vanco h as not been consigned by [employer] that [place] privileges in [place]. IV Vanco will now be done b y Candie, [address] faxed over hard script to [facility]. They will have both IV Abx ready and will teach pt shortly. No further dc needs identified. CONTACTS: Yina La: sister India Tilley: sister [place] Transportation: [place] Medicaid Transportation fax: [phone] [facility]: [phone] fax: [phone] [facility] [phone] [facility]: [phone] [facility]: [phone] [facility] FAX: [phone] Michelle Cowan DO - 03/31/2019 10:12 AM PDT Patient: Estefani Tilley Date of : 1945 Admit Date: 03/24/2019 Date of Service: 03/31/2019 PCP: Francisca Womack PA-C Hospital Day: Hospital Day: 8 Hospital Course: 73-year-old female with history of ESRD on hemodialysis, hypertension, type 2 diabetes, hyp othyroidism, chronic anemia, hyperlipidemia with a history of stroke transferred from [facility] for evaluation of T11-T12 lesion noted on [...] to go to SNF [facility] in [place] [place] - of which has accepted her [...] dialysis patient - has OP clinic in [place] already Macrocytic anemia likely secondary to-likely anemia [...] hoping to arrange home IV antibiotics through [facility]. Awaiting to see if insurance will cover [...] Signs 03/29 07 - 03/30 0659 03/30 07 - 03/31 [...] - 99 mg/dL Final Comment: Performed by [facility] [address] [place] [address] 03/30/2019 21:14 200 (H) 65 - 99 mg/dL Final Comment: Performed by [facility] [address] [place] [address] 03/30/2019 17:46 111 (H) 65 - 99 mg/dL Final Comment: Performed by [facility] [address] [place] [address] 12/09/2018 18:05 113 (H) 70 - 109 [...] this chart may have been created with [employer] voice recognition software. Occasi onal wrong-word or sound-alike substitutions may have occurred due to the inherent mckeon itations of voice recognition software. Please read the chart carefully and recognize, using context, where these substitutions have occurred Jesus Wade MD - 03/31/2019 8:26 AM PDT . Infectious Diseases Progress Note Pt. Name/Age/: Estefanicharlie Tilley 73 y.o. 1945 Med. Record Number: [id number] Date of admission: 03/24/2019 Patient admitted with [...] Electronically signed by: Jesus Whitney, 03/31/2019 8:26 [facility] Robb Phillips PharmD - 03/31/2019 7:25 AM [...] 04:12 I/O last 3 completed shifts: In: 1809 [P.O.:1809] Out: 0 No intake/output data recorded. Micro/Cultures: BCx - NGTD, BiopsyCx - NGTD Per P&T-approved Vancomycin Protocol Electronically signed by: Robb Wheeler PharmD 03/31/2019 7:25 su, Randy Nunez MD - 03/30/2019 9:45 PM PDT [facility] INPATIENT ROUNDING NOTE Date of Service: 03/30/2019 Rounding Physician: Randy Corrigan MD Patient Name: Estefani Tilley : 1945 Medical Record: [id number] Hospital Summary: Estefani Tilley is a 73 y.o. female with a PMHx of ESRD, HTN, Dm type 2, hypothyroidism, HLd, CVA who is under the care of Dr Muñoz at [facility] who dialyzes MWF admitted with [...] good bruit and thrill Recent Labs Lab 03/30/1952603/29/19 0519 03/28/19 0458 WBC 4.43 4.55 4.25 HGB 10.3* 10.2* 9.9* HCT 31.6* 31.8* 30.8* PLT 174 172 171 Recent Labs Lab 03/30/1952603/29/1951803/28/198 03/26/19 1144 03/26/19 0411 03/25/19 0918 03/24/19 [...] Trace Corrigan MD, 03/30/2019, 21:45 etNan wilkes, ANTENNA INSTALLER - 03/30/2019 2:34 PM PDT SOCIAL WORK D/C PLAN:RI home with [facility] providing IV-ABX and [facility] providing picc care and lab draws vs [facility] NEXT STEPS: -SW will need to follow up with CANDIE regarding providing IV-ABX to pt. -SW will need to follow up with [facility] regarding providing picc care and lab draws. -SW will need to follow up with [facility] regarding having pt receive vanco do se while at dialysis center if pt is to go home with IV-ABX -SW will need to follow up with [facility] if pt is unable to go home with IV-ABX rega ridng pt's DC -SW will need to fax SNF orders, scripts and PASRR to [facility] if pt is unable to go home -SW will need to provide gas cards to pt's family for transportation home. INTERVENTION:SW spoke with pt regarding acceptance to [facility]. Pt is now wanting to go home with IV-ABX. SW spoke with [facility]. They go out to [place], [place] and have openings for nursing care. Referral faxed to [facility]. Pt is amenable to using [facility] for IV-ABX. SW spoke with CANIDE martinez who will run pt's be nefits to see if she can DC home with IV-ABX. Pt states that CANDIE can provide teach to her son to help administer IV-ABX. SW left message for [facility] to see if they can provide vanco dose [facility] pt [facility] on Wednesday, Wednesday and Wednesday if pt is able to go home. Pt states that she does dialysis on Wednesday, Wednesday and Wednesday from 12:00-4:00. SW received phone call from [facility]. They have accepted pt for admission if [...] to go to [facility]. ASSESSMENT/CHART REVIEW:73 yr old femalewith a history of ESRD on hemodialysis, hypertens ion, type 2 diabetes, hypothyroidism,chronic anemia,hyperlipidemia, hx of stroke [facility] noted on MRI concerning fo r osteomyelitis. ROBIN met with pt's sister, Yina, and her cousin, Keri, who were waiting in pt's room while s he was in dialysis. SW will need to follow up with pt re: d/c planning. Pt's sister and cousin related that pt mostly lives at Yina's house outside [place], [place], but does not like to be tied down because she enjoys attending [employer] festivals and many events. She does at [facility] dialysis weekly. Pt has a vehicle and is very independent. D/C TRANSPORT:Pt can be transported home or to [facility] via family in a private car. They will need gas cards to help pay for transportation. BARRIERS TO D/C:none CONTACTS: Yina La: sister India Tilley: sister [place] Transportation: [place] Medicaid Transportation fax: [phone] [facility]: [phone] fax: [phone] [facility] [phone] [facility]: [phone] [facility]: [phone] [facility] FAX: [phone] Nan Cheney MSW - 03/30/2019 12:57 PM PDTSOCIAL WORK D/C PLAN:SNF: [facility] NEXT STEPS:Await bed availability INTERVENTION: ROBIN called and left message for Mell at [facility] regarding if they are willing to accept pt and to discuss transportation to and from dialysis. ROBIN also called and left message for [place] Medicaid transportation regarding if they can transp ort pt to and from dialysis upon DC. Pt states that she goes to [facility] dialys is in [place], [place] on Wed, Wed, and Fridays from 12:00-4:00 pm. SW left message with [facility] regarding if there was any way that they may also be able to help with transportation to and from dialysis while pt is in rehab and to ensure that pt still has her chair time scheduled. [facility] is only open M on, Wednesday and Wednesday. ASSESSMENT/CHART REVIEW:73 yr old femalewith a history of ESRD on hemodialysis, hypertens ion, type 2 diabetes, hypothyroidism,chronic anemia,hyperlipidemia, hx of stroke [facility] noted on MRI concerning fo r osteomyelitis. ROBIN met with pt's sister, Yina, and her cousin, Keri, who were waiting in pt's room while s he was in dialysis. SW will need to follow up with pt re: d/c planning. Pt's sister and cousin related that pt mostly lives at Yina's house outside [place], [place], but does not like to be tied down because she enjoys attending [employer] festivals and many events. She does at [facility] weekly. Pt has a vehicle and is very independent. D/C TRANSPORT:tbd BARRIERS TO D/C:none CONTACTS: Yina La: sister India Tilley: sister [place] Transportation: [place] Medicaid Transportation fax: [phone] [facility]: [phone] fax: [phone] [facility] [phone] [facility]: [phone] signed by JENNIFER Xavier at 03/30 1:09 [...] with a history of stroke transferred from [facility] for evaluation of T11-T12 lesion noted on [...] awaiting to hear from [facility] in [place] regarding possible acceptance. She is improved [...] dialysis patient - has OP clinic in [place] already ---> will need SW to help [...] SNF - awaiting to hear back from [facility], in [place], [place] regarding possible acceptance there. Medically ready [...] Single Lumen 03/24/19 2143 Left Lateral Forearm tqjy-mby-ockemv daniel ter system 20 gauge;1 1/4 in [...] - 99 mg/dL Final Comment: Performed by [facility] [address] [place] [address] 03/29/2019 21:09 157 (H) 65 - 99 mg/dL Final Comment: Performed by [facility] [address] [place] [address] 03/29/2019 18:50 91 65 - 99 mg/dL Final Comment: Performed by [facility] [address] [place] [address] 12/09/2018 18:05 113 (H) 70 - 109 [...] this chart may have been created with [employer] voice recognition software. Occasi onal wrong-word or sound-alike substitutions may have occurred due to the inherent mckeon itations of voice recognition software. Please read the chart carefully and recognize, using context, where these substitutions have occurred rgJesus mcdonald MD - 03/30/2019 7:15 AM PDT . Infectious Diseases Progress Note Pt. Name/Age/: Estefani Tilley 73 y.o. 1945 Med. Record Number: [id number] Date of admission: 03/24/2019 Patient admitted with [...] Electronically signed by: Jesus Whitney, 03/30/2019 7:15 [facility] Mary Wade RN - 03/30/2019 6:16 AM [...] wishful of Monitoring Requirements PHS Suicide Policy [facility] Suicide Risk/Telesitter Screening Utilizing this rating [...] 108/48 Pulse: 74 77 71 Resp: 16 Temp: 36.8 C (98.2 F) 36.4 [...] 03/29/2019 4:18 PM PDTSOCIAL WORK D/C PLAN:SNF: [facility] NEXT STEPS:Await bed availability INTERVENTION: SW called and spoke with admissions person at [facility], they are still discussing pt's case. They [...] anemia,hyperlipidemia, hx of stroke [facility] lesion noted on MRI concerning fo r osteomyelitis. SW met with pt's sister, Yina, and her cousin, Keri, who were waiting in pt's room while s he was in dialysis. SW will need to follow up with pt re: d/c planning. Pt's sister and cousin related that pt mostly lives at Yina's house outside [place], [place], but does not like to be tied down because she enjoys attending [employer] festivals and many events. She does at [facility] weekly. Pt has a vehicle and is very independent. D/C TRANSPORT:tbd BARRIERS TO D/C:none CONTACTS: Yina La: sister India Tilley: sister [place] Medicaid Transportation: [facility]: [phone] fax: [phone] [facility] [phone] signed by JENNIFER Contreras at 03/29/2019 4:20 PM PDTu, Randy Nunez MD - 03/29/2019 12:32 PM PDT [facility] INPATIENT ROUNDING NOTE Date of Service: 03/29/2019 Rounding Physician: Randy Corrigan MD Patient Name: Estefani Tilley : 1945 Medical Record: [id number] Hospital Summary: Estefani Tilley is a 73 y.o. female with a PMHx of ESRD, HTN, Dm type 2, hypothyroidism, HLd, CVA who is under the care of Dr Muñoz at [facility] who dialyzes MWF admitted with [...] Corrigan MD, 03/29/2019, 12:32 after, Michelle Taylor, DO - 03/29/2019 12:12 PM PDT Patient: Estefani Tilley Date of : 1945 Admit Date: 03/24/2019 Date of Service: 03/29/2019 PCP: Francisca Womack PA-C Hospital Day: Hospital Day: 6 Hospital Course: 73-year-old female with history of ESRD on hemodialysis, hypertension, type 2 diabetes, hyp othyroidism, chronic anemia, hyperlipidemia with a history of stroke transferred from [facility] for evaluation of T11-T12 lesion noted on [...] awaiting to hear from [facility] in [place] regarding possible acceptance. May be able [...] dialysis patient - has OP clinic in [place] already ---> will need SW to help [...] SNF - awaiting to hear back from [facility], in [place], [place] regarding possible acceptance there. Could possibly [...] Single Lumen 03/24/19 2143 Left Lateral Forearm fucm-atx-vcoecn daniel ter system 20 gauge;1 09/16 in length 4 days Line Hemodialysis AV [...] - 99 mg/dL Final Comment: Performed by [facility] [address] [place] [address] 03/28/2019 21:06 144 (H) 65 - 99 mg/dL Final Comment: Performed by [facility] [address] [place] [address] 03/28/2019 11:22 119 (H) 65 - 99 mg/dL Final Comment: Performed by [facility] [address] [place] [address] 12/09/2018 18:05 113 (H) 70 - 109 [...] this chart may have been created with [employer] voice recognition software. Occasi onal wrong-word or [...] Tilley 73 y.o. 1945 Med. Record Number: [id number] Date of admission: 03/24/2019 Patient admitted with [...] Electronically signed by: Jesus Whitney, 03/29/2019 7:35 [facility] zech, Carolina Kearney RN - 03/28/2019 7:08 PM [id number] - Report called to Sanjuanita GONZALEZ. Pt's belongings . I pad and I phone w/ chargers as well as pt's purse, and shoes, and shirt and pants all sent with her to [address] [place] [address]. Pt had been sitting up eating dinner. [...] me for time spent with her. Noti juanis Yusuf RN of pt's recent loss. Transferred at 1900 via with all her belongings. Nelda ctronically signed by: Carolina Jesisca RN 03/28/2019 19:23 RadhaftMichelle avila D O - 03/28/2019 3:55 PM PDT Patient: Estefani Tilley Date of : 1945 Admit Date: 03/24/2019 Date of Service: 03/28/2019 PCP: Francisca Womack PA-C Hospital Day: Hospital Day: 5 Hospital Course: 73-year-old female with history of ESRD on hemodialysis, hypertension, type 2 diabetes, hyp othyroidism, chronic anemia, hyperlipidemia with a history of stroke transferred from [facility] for evaluation of T11-T12 lesion noted on [...] 0659 03/27 07 - 03/28 0659 03/28 700 - 03/28 [...] Single Lumen 03/24/19 2143 Left Lateral Forearm qlms-mex-dletbu daniel ter system 20 gauge;1 1/4 in [...] - 99 mg/dL Final Comment: Performed by [facility] [address] [facility] [place] [address] 03/28/2019 07:09 75 65 - 99 mg/dL Final Comment: Performed by [facility] [address] [facility] [place] [address] 03/27/2019 20:38 109 (H) 65 - 99 mg/dL Final Comment: Performed by [facility] [address] [facility] [place] [address] 12/09/2018 18:05 113 (H) 70 - 109 [...] this chart may have been created with [employer] voice recognition software. Occasi onal wrong-word or sound-alike substitutions may have occurred due to the inherent mckeon itations of voice recognition software. Please read the chart carefully and recognize, using context, where these substitutions have occurred Cordell Mcgarry LICSW - 03/28/2019 2:57 PM PDTSOCIAL WORK D/C PLAN: SNF: [facility] NEXT STEPS: Await bed availability INTERVENTION: On-going dc planning. Rec'd update from [facility]. They confirm they have r ec'd clinical notes and are currently reviewing. SW will follow. ASSESSMENT/CHART REVIEW:73 yr old femalewith a history of ESRD on hemodialysis, hypertens ion, type 2 diabetes, hypothyroidism,chronic anemia,hyperlipidemia, hx of stroke [facility] noted on MRI concerning fo r osteomyelitis. SW met with pt's sister, Yina, and her cousin, Keri, who were waiting in pt's room while s he was in dialysis. SW will need to follow up with pt re: d/c planning. Pt's sister and co usin related that pt mostly lives at Yina's house outside [place], [place], but does not like to be tied down because she enjoys attending [employer] festivals and many events. She does atten d dialysis weekly. Pt has a vehicle and is very independent. D/C TRANSPORT: tbd BARRIERS TO D/C: none CONTACTS: Yina La: sister India Tilley: sister [facility]: [phone] fax: [phone] [facility] [phone] Mario Alberto Gonzales MD - 03/28/2019 7:34 AM PDTFormatting of this note might be different from the maynor rollins Infectious Diseases Progress Note Pt. Name/Age/: Estefani Tilley 73 y.o. 1945 Med. Record Number: [id number] Date of admission: 03/24/2019 Patient admitted with [...] Electronically signed by: Carlos Jansen, 03/28/2019 7:34 [facility] Katey Solis MD - 03/27/2019 8:58 PM PDT Patient: Estefani Tilley Date of : 1945 Admit Date: 03/24/2019 Date of Service: 03/27/2019 PCP: Francisca Womack PA-C Hospital Day: Hospital Day: 4 Hospital Course: 73-year-old female with history of ESRD on hemodialysis, hypertension, type 2 diabetes, hyp othyroidism, chronic anemia, hyperlipidemia with a history of stroke transferred from [facility] for evaluation of T11-T12 lesion noted on MRI concerning for osteomyeliti s. Infectious disease consulted. Status post aspiration from her thoracic spine, Gram stain negative, cultures pending. Rosemary ent started on empiric vancomycin and cefepime. Will need 6 weeks of IV antibiotics. Discussed with nephrology, recommend placement of Tillman catheter instead of PICC line for termite exterminator helper IV antibiotics. Nephrology following for maintenance hemodialysis. SW following for SNF. Assessment and Plan: Assessment of active problems addressed today: Osteomyelitis/discitis of T11, T12 vertebra Afebrile, improved WBC count, improved CRP Status post aspiration from her thoracic spine, Gram stain negative, cultures pending- [facility] Infectious disease help appreciated Continue vancomycin and cefepime Echocardiogram negative for any endocarditis. Patient will need IV antibiotics for 6 weeks. Continue probiotic Discussed with nephrology, recommend placement of Tillman catheter instead of PICC line for termite exterminator helper IV antibiotics. Pain management -trial of lidocaine [...] Line Peripheral IV Line - Single Lumen 03/24/193 Left Lateral Forearm iaoc-xqf-psmvea daniel ter system 20 gauge;1 / in length 2 days Line Hemodialysis AV [...] - 99 mg/dL Final Comment: Performed by [facility] [address] [place] [address] 03/27/2019 13:58 82 65 - 99 mg/dL Final Comment: Performed by [facility] [address] [place] [address] 03/27/2019 06:39 83 65 - 99 mg/dL Final Comment: Performed by [facility] [address] [place] [address] 12/09/2018 18:05 113 (H) 70 - 109 [...] this chart may have been created with [employer] voice recognition software. Occasi onal wrong-word or sound-alike substitutions may have occurred due to the inherent mckeon itations of voice recognition software. Please read the chart carefully and recognize, using context, where these substitutions have occurred arlin Diaz, [facility] - 03/27/2019 3:17 PM PDTSOCIAL WORK D/C PLAN: SNF: [facility] NEXT STEPS: Await bed availability INTERVENTION: Rec'd call from Emili at [facility]. She states the contracted f acility near pt's home is [facility]. Spoke with pt and with sister India. Referral and (-) Pasrr sent to [facility]. Copy of Pasrr placed in light chart with request to file into jos rds. SW will follow. ASSESSMENT/CHART REVIEW:73 yr old femalewith a history of ESRD on hemodialysis, hypertens ion, type 2 diabetes, hypothyroidism,chronic anemia,hyperlipidemia, hx of stroke [facility]12 lesion noted on MRI concerning fo r osteomyelitis. SW met with pt's sister, Yina, and her cousin, Keri, who were waiting in pt's room while s he was in dialysis. SW will need to follow up with pt re: d/c planning. Pt's sister and co in related that pt mostly lives at Yina's house outside [place], [place], but does not like to be tied down because she enjoys attending [employer] festivals and many events. She does atten d dialysis weekly. Pt has a vehicle and is very independent. D/C TRANSPORT: tbd BARRIERS TO D/C: none CONTACTS: Yina La: sister India Tilley: sister [facility]: [phone] fax: [phone] [facility] [phone] Gregg Mcgarry LICSW - 03/27/2019 2:17 PM PDTFormatting of this note might be different from th e original. SOCIAL WORK D/C PLAN: SNF NEXT STEPS: SW to follow up with pt regarding SNF preference INTERVENTION: On-going dc planning, chart reviewed and met with pt. Discussed need of shelter IV abx, Discussed options. Provided list of [...] pt mostly lives at Yina's house outside [place], [place], but does not like to be tied down because she enjoys attending [employer] festivals and many events. She does atten d dialysis weekly. Pt has a vehicle and is very independent. ASSESSMENT/CHART REVIEW:73 yr old femalewith a history of ESRD on hemodialysis, hypertens ion, type 2 diabetes, hypothyroidism,chronic anemia,hyperlipidemia, hx of stroke [facility] noted on MRI concerning fo r osteomyelitis. D/C TRANSPORT: tbd BARRIERS TO D/C: none CONTACTS: Yina La Sister [phone] India Tilley Sister [phone] Irish Cadet, Routing Equipment Tender - 03/27/2019 1:33 PM PDTFormatting of this note might be different fr om the original. Pharmacy Progress Note VANCOMYCIN PER PHARMACY PROTOCOL: Day 4 Estefani Jimenez Jarek is a 73 y.o. female receiving vancomycin [...] Vancomycin Protocol Electronically signed by: Aimee Carroll, Routing Equipment Tender 03/27/2019 13:33Electronically si gned by Ray Joel PharmD at 03/27/2019 2:04 PM PDT Associated attestation - Ray Joel PharmD - 03/27/2019 2:04 PM PDTI reviewed and agr ee with the assessment and plan. Ray Joel, PharmD 03/27/2019 14:04 Randy Corrigan MD - 03/27/2019 10:52 AM PDT [facility] INPATIENT ROUNDING NOTE Date of Service: 03/27/2019 Rounding Physician: Randy Corrigan MD Patient Name: Estefani Jimenez Jarek : 1945 Medical Record: [id number] Hospital Summary: Estefani Tilley is a 73 y.o. female with a PMHx of ESRD, HTN, Dm type 2, hypothyroidism, HLd, CVA who is under the care of Dr Muñoz at [facility] who dialyzes MWF admitted with [...] Tilley 73 y.o. 1945 Med. Record Number: [id number] Date of admission: 03/24/2019 Patient admitted with [...] Electronically signed by: Carlos Jansen, 03/27/2019 7:10 [facility] Katey Solis MD - 03/26/2019 5:40 PM PDT Patient: Estefani Tilley Date of : 1945 Admit Date: 03/24/2019 Date of Service: 03/26/2019 PCP: Francisca Womack PA-C Hospital Day: Hospital Day: 3 Hospital Course: 73-year-old female with history of ESRD on hemodialysis, hypertension, type 2 diabetes, hyp othyroidism, chronic anemia, hyperlipidemia with a history of stroke transferred from [facility] for evaluation of T11-T12 lesion noted on [...] Single Lumen 03/24/19 2143 Left Lateral Forearm zqnf-jju-xdbkqc daniel ter system 20 gauge;1 1/4 in [...] - 99 mg/dL Final Comment: Performed by [place] [address] [facility] [place] [address] 03/26/2019 06:49 116 (H) 65 - 99 mg/dL Final Comment: Performed by [address] [facility] [place] [address] 03/25/2019 20:37 110 (H) 65 - 99 mg/dL Final Comment: Performed by [place] [address] [facility] [place] [address] 12/09/2018 18:05 113 (H) 70 - 109 [...] this chart may have been created with [employer] voice recognition software. Occasi onal wrong-word or sound-alike substitutions may have occurred due to the inherent mckeon itations of voice recognition software. Please read the chart carefully and recognize, using context, where these substitutions have occurred [facility] R nathanielt - 03/26/2019 10:52 AM PDTFormatting of this [...] P&T-approved Vancomycin Protocol Electronically signed by: Jose Ramos, Routing Equipment Tender 03/26/2019 10:52 Randy Yu MD - 03/26/2019 1 0:38 AM PDT [facility] INPATIENT ROUNDING NOTE Date of Service: 03/26/2019 Rounding Physician: Randy Corrigan MD Patient Name: Estefani Tilley : 1945 Medical Record: [id number] Hospital Summary: Estefani Tilley is a 73 y.o. female with a PMHx of ESRD, HTN, Dm type 2, hypothyroidism, HLd, CVA who is under the care of Dr Muñoz at [facility] who dialyzes MWF admitted with possible osteo disccitis t11/t12 ASSESSMENT AND PLAN 1. ESRD/HD dependent Access is LUE AVF working well No indications for HD today Usually dialyzes MWF at [facility] Hd tommorow 2. Anemia Hg [...] 192 177 Recent Labs Lab 03/26/19 0411 03/25/1918 03/24/1918 03/23/19 1903 NA 133* 135 141 [...] original. Infectious Diseases Progress Note Pt. Name/Age/: Estefanipadma Tilley 73 y.o. 1945 Med. Record Number: [id number] Date of admission: 03/24/2019 Patient admitted with [...] Electronically signed by: Carlos Jansen, 03/26/2019 8:03 [facility] Katey Solis MD - 03/25/2019 3:50 PM PDT Patient: Estefani Tilley Date of : 1945 Admit Date: 03/24/2019 Date of Service: 03/25/2019 PCP: Francisca Womack PA-C Hospital Day: Hospital Day: 2 Hospital Course: 73-year-old female with history of ESRD on hemodialysis, hypertension, type 2 diabetes, hyp othyroidism, chronic anemia, hyperlipidemia with a history of stroke transferred from [facility] for evaluation of T11-T12 lesion noted on [...] Signs 03/23 0700 - 03/24 0659 03/24 700 - 03/25 [...] Single Lumen 03/24/19 2143 Left Lateral Forearm ynwd-hso-csapqf daniel ter system 20 gauge;1 1/4 in [...] - 99 mg/dL Final Comment: Performed by [place] [address] [place] [address] 03/25/2019 06:52 107 (H) 65 - 99 mg/dL Final Comment: Performed by [facility] [address] [place] [address] 03/24/2019 20:11 112 (H) 65 - 99 mg/dL Final Comment: Performed by [facility] [address] [place] [address] 12/09/2018 18:05 113 (H) 70 - 109 [...] this chart may have been created with [employer] voice recognition software. Occasi onal wrong-word or sound-alike substitutions may have occurred due to the inherent mckeon itations of voice recognition software. Please read the chart carefully and recognize, using context, where these substitutions have occurred su, Randy Nunez MD - 0 03/25/2019 1:47 PM PDT [facility] INPATIENT ROUNDING NOTE Date of Service: 03/25/2019 Rounding Physician: Randy Corrigan MD Patient Name: Estefani Tilley : 1945 Medical Record: [id number] Hospital Summary: Estefani Tilley is a 73 y.o. female with a PMHx of ESRD, HTN, Dm type 2, hypothyroidism, HLd, CVA who is under the care of Dr Muñoz at [facility] who dialyzes MWF admitted with possible osteo disccitis t11/t12 ASSESSMENT AND PLAN 1. ESRD/HD dependent Access is LUE AVF working well No indications for HD today Usually dialyzes MWF at [facility] She is below her EDW [...] good bruit and thrill Recent Labs Lab 03/25/1991703/24/1951703/23/19 1835 WBC 5.34 5.46 5.8 HGB 10.2* [...] Corrigan MD, 03/25/2019, 13:47 ettler, Nan Jimenez, ANTENNA INSTALLER - 03/25/2019 10:49 AM PDT SOCIAL WORK [...] pt mostly lives at Yina's house outside [facility] [place], but does not like to be tied down because she enjoys attending [employer] festivals and many events. She does atten d dialysis weekly. Pt has a vehicle and is very independent. ASSESSMENT/CHART REVIEW:73 yr old femalewith a history of ESRD on hemodialysis, hypertens ion, type 2 diabetes, hypothyroidism,chronic anemia,hyperlipidemia, hx of stroke [facility] lesion noted on MRI concerning fo r osteomyelitis. D/C TRANSPORT: tbd BARRIERS TO D/C: none CONTACTS: Yina La Sister [phone] India Tilley Sister [phone] Carlos Gonzales M D - 03/25/2019 8:34 AM PDT Infectious Diseases Progress Note Pt. Name/Age/: Estefani Tilley 73 y.o. 1945 Med. Record Number: [id number] Date of admission: 03/24/2019 Patient admitted with [...] Electronically signed by: Carlos Jansen, 03/25/2019 8:34 [facility] Jose Gamez, Routing Equipment Tender - 03/24/2019 10:46 PM PDTFormatting of this [...] P&T-approved Vancomycin Protocol Electronically signed by: Jose Ramos, Routing Equipment Tender 03/24/2019 22:46 Gladys Daugherty MSW - 9 [...] pt mostly lives at Yina's house outside [place], [place], but do es not like to be tied down because she enjoys attending [employer] festivals and many events. She does attend dialysis weekly. Pt has a vehicle and is very independent. ASSESSMENT/CHART REVIEW:73 yr old female with a history of ESRD on hemodialysis, hypertensi on, type 2 diabetes, hypothyroidism, chronic anemia, hyperlipidemia, hx of stroke transferre d from [facility] for evaluation of T11-T12 lesion noted on MRI concerning for ost eomyelitis. D/C TRANSPORT: tbd BARRIERS TO D/C: none CONTACTS: Yina La Sister [phone] India Tilley Sister [phone] Katey Solis MD - 03/24/2019 3:53 PM PDTPatient seen and examined. Chart reviewed. Briefly, 73-year-old female with history of ESRD on hemodialysis, hypertension, type 2 diab etes, hypothyroidism, chronic anemia, hyperlipidemia with a history of stroke transferred fr [facility] for evaluation of T11-T12 lesion [...] not have any p raza, consider antidepressants. shafting worker consulted for concerns for housing concerns per Continue care as outlined in the history and physical note. Plan of care discussed in detail with the patient. alia Hernadez RN - 0 03/24/2019 1:21 PM PDTPt [...] Note VANCOMYCIN PER PHARMACY PROTOCOL: Day 1 Estefnai Tilley is a 73 y.o. 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 Assessment/Plan: 1. Vancomycin 1250 mg IV once given 03/23 @ 0131 at [facility]. 2. Target Trough: 15-20 mcg/ml [...] 3.78 mg/dL (H)). No results found for: ALEJANDRO HOOKOM No intake/output data recorded. No intake/output data recorded. Micro/Cultures: Microbiology Results (72 hrs) Procedure Component Value Units Date/Time Culture, Blood [[id number]] Collected: 03/23/19 2333 Order Status: Sent Lab Status: In process Updated: 03/23/192348 Specimen: Blood Culture, Blood [[id number]] Collected: 03/23/19 0956 Order Status: Sent Lab Status: In process Updated: 03/23/19 9760 Specimen: Blood Per P&T-approved Vancomycin Protocol Electronically [...] anemia, hyperlipidemia, hx of stroke transferred from [facility] for evaluation of T11-T12 lesion [...] M, w and F HD sessions in [place], [place] Last HD session Wednesday Will call [...] stroke on aspirin , pt lives in [place], [place]. She presented to [facility] yesterday complaining of 6 days of severe [...] the spine for further evaluation. Answered to [facility] for IR procedure. Patient reports that she [...] Breast cancer (HCC) s/p left mastectomy in 2005, s/p chemotherapy Cancer (HCC) Diabetes (HCC) Heart disease Hemodialysis patient (HCC) wed- History of blood clots Hypercholesteremia Hypertension Hypothyroidism Renal failure Seasonal allergies Past Surgical History: Procedure Laterality Date APPENDECTOMY EYE SURGERY 2009 HIP SURGERY Right 12/04/2018 Procedure: ORIF HIP W/CANNULATED SCREWS; Surgeon: Scott Koroma MD; Location: [facility] MAIN OR HYSTERECTOMY MASTECTOMY 2006 left ear NOSE SURGERY 2008 REMOVAL TUNNELED CATHETER Right 04/04/[address] Stephenson SHUNT PLACEMENT/INSERTION N/A 11/08/2017 Procedure: Tunneled Hemodialysis Catheter Placement; Surgeon: Nora Leo MD; Location : [facility] MAIN OR SHUNT PLACEMENT/INSERTION Right 02/04/2018 Procedure: INSERTION SHUNT HEMODIALYSIS W/ PERMACATH; Surgeon: Heather Navarro MD; L ocation: [facility] MAIN OR VEIN SURGERY Right 01/04/2018 Procedure: Right Transposed Basilic Vein to Proximal Radial Artery; Surgeon: Santos Stephenson MD, FACS; Location: [facility] MAIN OR Social History Socioeconomic History [...] on file COMMENTS- Never smoker, lives in [place], [place]. Reports living in her car most [...] 4,000 Units by mouth Daily. Taking Gopi kearney, doxercalciferol (HECTOROL) 1 MCG CAPS Take 0.5 mg by mouth Three times a week. Taking His torical Provider, epoetin karthik (EPOGEN, PROCRIT) 10,000 units/mL [...] 1 hour pr ior to dialysis Historical ProviderMD losartan (COZAAR) 100 MG tablet Take 1 tablet by mouth Daily. Patient not taking: Reporte d on 01/15/2019 Gopi Muñoz DO montelukast (SINGULAIR) 10 mg [...] Signs 03/21 700 - 03/22 0659 03/22 700 - 03/23 0659 03/23 700 - 03/24 [...] or hilar lymphadenopathy. LUNGS:There is a smal e-uu-qnsscecf layering left pleural effusion. There is atelectasis [...] this chart may have been created with [employer] voice recognition software. Occasi onal wrong-word or [...] Corrigan MD - 03/24/2019 9:31 AM PDT [facility] Nephrology Consultation Patient Name: Estefani Tilley : 1945 Medical Record: [id number] DATE OF SERVICE: 03/24/2019 CONSULTING PHYSICIAN: Trace Nunez MD REFERRING PHYSICIAN: Dr Erlinda Simental REASON FOR CONSULTATION: ESRD HD management HISTORY OF PRESENT ILLNESS Estefani Tilley is a 73 y.o. female who has a history of ESRD, HTN, Dm type 2, hypothyroi dism, HLd, CVA who is under the care of Dr Muñoz at [facility] who dialyzes MWF. Her usually [...] Date Anemia Arthritis Back pain Breast cancer ([facility]) s/p left mastectomy in 2004, s/p chemotherapy Cancer ([facility]) Diabetes ([facility]) Heart disease Hemodialysis patient ([facility]) wed-wed-wed History of blood clots Hypercholesteremia Hypertension Hypothyroidism Renal failure Seasonal allergies Stroke (cerebrum) ([facility]) CURRENT MEDICATIONS Scheduled Meds: aspirin 81 mg [...] effort i s made to edit content, police radio dispatcher errors may occur. If there are any [...] her local facility and then transferred to [facility] in [place] . CT scan was suggestive of T11-T12 [...] (HCC) Diabetes (HCC) Heart disease Hemodialysis patient ([facility]) mon-wed-fri History of blood clots Hypercholesteremia Hypertension Hypothyroidism Renal failure Seasonal allergies Stroke (cerebrum) ([facility]) Past Surgical History: Procedure Laterality Date APPENDECTOMY EYE SURGERY 2009 HIP SURGERY Right 12/04/2018 Procedure: ORIF HIP W/CANNULATED SCREWS; Surgeon: Scott Koroma MD; Location: [facility] MAIN OR HYSTERECTOMY MASTECTOMY 2006 left ear NOSE SURGERY 2009 REMOVAL TUNNELED CATHETER Right 04/04/[address] Stephenson SHUNT PLACEMENT/INSERTION N/A 11/08/2017 Procedure: Tunneled Hemodialysis Catheter Placement; Surgeon: Nora Leo MD; Location : [facility] MAIN OR SHUNT PLACEMENT/INSERTION Right 02/04/2018 Procedure: INSERTION SHUNT HEMODIALYSIS W/ PERMACATH; Surgeon: Heather Navarro MD; L ocation: [facility] MAIN OR VEIN SURGERY Right 01/04/2018 Procedure: Right Transposed Basilic Vein to Proximal Radial Artery; Surgeon: Santos Stephenson MD, FACS; Location: [facility] MAIN OR Patient Active Problem List [...] or hilar lymphadenopathy. LUNGS:There is a smal p-xd-hyjbikgd layering left pleural effusion. There is atelectasis [...] (140 lb 3.4 oz) Energy Calorie Requirements: 2136-1125(REE x 1.2-1.4) Range Gm Protein (gm): 55-85 [...] nd stooling patterns Tiffany Herrera MS, RD [phone] DATE/TIME: 03/31/2019 16:12 lan of Genevieve Gama RN - 03/31/2019 2:57 PM PDTShift Summary: Pt off the floor most of the day for HD. REY fistula, R IJ CVC, flushing w/o difficulty. A& O, up with 1 assist. Pt to d/c home to [place] this afternoon after [employer] teach es family about IV abx administration. Receives oxycodone 5-10mg for chronic back pain. Campbell lomas N/V/D. VSS. ACHS CS WNL. lan of Calli Delgado, Return To Service Inspector-Clinical - 03/31/2019 1:36 PM PDTFormattin g of this note might be different from the original. COKE CRUSHER OPERATOR MENU ASSISTANCE FOLLOW-UP NOTE INTERVENTIONS: 1. Continue [...] as needed. Electronically signed by: Lorna Lima TimeBridgeClinical 03/31/2019 13:37 NF Transfer - [facility] Michelle avila DO - 03/31/2019 10:26 AM PDT NURSING HOME FACILITY TRANSFER ORDERS Patient Name: Estefani Tilley Patient : 1945 Gender: female Date of Admission: 03/24/2019 Date of Discharge: 03/31/2019 Admitting Provider: Erlinda Simon MD Discharging Provider: Michelle Lopez DO Consultants: Nephrology, ID PCP: [facility] transferring to: [facility] Provider after transfer: Facility Provider CODE STATUS: [x] Attempt CPR [] Do not resuscitate If patient is pulseless and not breathing, RN/CYTOGENETIC TECHNOLOGIST may pronounce . Advanced Directives included: [] [...] INFLUENZA QUADR W/PRES (PED/ADOL/ADULT) MULTIDOSE 06/27/2014 INFLUENZA, [id number], UNSPECIFIED 08/28/2009 INFLUENZA, UNSPECIFIED FORMULATION 06/20/2013 PNEUMOCOCCAL CONJUGATE 13-VALENT (PCV13) 02/12/2016 PNEUMOCOCCAL POLYSACCHARIDE 23-VALENT (PPSV23) 07/30/2011 TD PF (2 LF TETANUS) (ADOL/ADULT) 06/22/2002 TDAP, (ADOL/ADULT) 06/17/2010, 06/17/2010 ZOSTER, 1 DOSE (ZOSTAVAX) 01/28/2012 Diet: [] As tolerated CILNICAL SCIENTIST may upgrade or downgrade diet as condition Indicates. [] RN may downgrade diet as indicated. Type: [x] Continue current diet of: Diet and Supplements Diet Diet general; Effective Now Number of Occurrences: Until Specified Order Questions: Type Diet general [] Other: Consistency/Precautions: [] Whole [] Thin Liquids [] Cut-up [] [place] Thick [] Advanced Chopped [] Honey Thickened [] Chopped [] Advanced Ground [] 1:1 feedings [] Ground/Pureed [] Other: Tube Feedings: [] PEG [] GT [] JT [] NGT [] Formula type: (Wildland Fire Fighter may change/substitute if indicated). [] Continuous Rate: [...] [] OT Evaluation & Management for: [] CILNICAL SCIENTIST Evaluation &Management for: [] Other: Wound/Skin Care: [...] Michelle ESCALANTE, DO, certify that post hospital care home care is medically neces shar on a continuing basis for any of the conditions for which he/she received care during t his hospitalization. Check one: [x] Skilled [] Intermediate Additional Orders/Instructions: Physician's signature: 03/31/2019 10:26 [facility] NURSING FAC[facility] USE ONLY: [] Admitting orders verbally reviewed with Admitting Physician, modified where appropriate, and approved. Verbal Order from Date: Time: _ RN name: RN signature: [] Admitting orders reviewed, modified where appropriate, and approved. Physician's signature: Date: Time: lan of Care - Steve man, Omari Jimenez, RN - 03/31/2019 3:30 AM PDT 5N [...] intention has depression wishful of Monitoring Requirements [facility] Suicide Policy [facility] Suicide Risk/Telesitter Screening Utilizing this rating [...] tomorrow, tunneled cath General diet AO IND [id number] signed by Rayna Ochoa RN at 03/30/2019 [...] Hospitalist (03/27/191947) Reason for Communication: Review case(Nahid Crumkman order) (03/27/191947) Response: No new orders (03/27/191947) [...] intention has depression wishful of Monitoring Requirements [facility] Suicide Policy [facility] Suicide Risk/Telesitter Screening Utilizing this rating [...] 12/08/2018 0650 lan of Care - Tiffany Pickard RD - 03/30/2019 9:56 [...] of meals x 6 days. Will send [facility] meals. Nutrition History Obtained? No [...] (based on estimated dry wt: 65.50 kg) [place] Body Weight: 63.64 kg Usual Body Weight: See [facility] weight hx; Weight History Per [facility] Records: 11/01/17: 87.20 k 04/04/18: 76.20 [...] nd stooling patterns Tiffany Herrera MS, RD [phone] DATE/TIME: 03/30/2019 10:22 lan of Care - [...] intention has depression wishful of Monitoring Requirements [facility] Suicide Policy [facility] Suicide Risk/Telesitter Screening Utilizing this rating [...] (H) 12/08/2018 0650 lan of Care - [place] Dietary Tech-Clinical - 03/29/2019 4:33 PM PDTFormatting of this note m ight be different from the original. Senior Manufacturing Supervisor Clinical Nutrition Follow-up Note Nutrition Interventions: Referred [...] Cueto NDTR DATE/TIME: 03/29/2019 16:34 lan of Melanie - Maribell Ji RN - 03/29/2019 1:05 PM PDTP t resting in bed this shift. Rt arm fistula with a good pulse and thrill. Went to dialysis a t around 1200 today. Rt chest tunneled picc line for shelter antibiotic therapy. Antibioti cs due after dialysis today. Electronically signed by: Maribell Ji RN 03/29/2019 13:07 lan of Melanie - Huan Negron RN - 03/29/2019 4:14 AM PDT Nursing Handoff Note Room# 501/501-02 Isolation:None Code Status: Full Code Item for locator specialist Comments Shift Summary: Hx Breast CA, [...] Last bowel movement: Stool Occurrence: 1(pt reported) (03/27/19 1846) /Al: ? Voiding ? AL ? Purewick [...] Answering service (03/27/191947) Reason for Communication: Review case(Power Tillman order) (03/27/191947) Response: No new orders (03/27/191947) Notification Time: 1630 (03/24/19 1631) ? I attest that I have reviewed and followed through with all orders applicable during my s hift. Frequency of vitals: Vitals: 03/28/19 1252 03/28/19 1924 03/28/19 2102 03/29/19 0000 BP: 141/66 143/69 166/75 158/69 Pulse: 69 73 70 60 Resp: 16 16 Temp: 36.1 C (96.9 F) 35.9 C (96.6 F) 36.4 C (97.5 F) TempSrc: Temporal Temporal Temporal SpO2: 99% 97% 98% 95% Weight: Height: No data found. lan of [facility] - Luz Farris, Return To Service Inspector-Clinical - 03/28/2019 4:44 PM PDT COKE CRUSHER OPERATOR CLINICAL NUTRITION NOTE NUTRITION PROBLEMS: 1. Inadequate [...] MD - 03/28/2019 3:05 PM PDT Melvin [facility] OPERATIVE NOTE [facility] Pt. Name/Age/: Estefani Tilley 73 y.o. 1945 Med. Record Number: [id number] Date of admission: 03/24/2019 Date of Operation/Procedure: 03/28/2019 Preoperative Diagnosis: need for iv access Postoperative Diagnosis: Same Surgeon: Juan Choi MD, PGY-4 Baggage Inspector: None Anesthesia Provider(s): No anesthesia staff entered. [...] 03/28/2019, 15:05 edation Documentation - Sudhir Brandon Accounts Payable Or Receivable Clerk - 03/28/2019 2:58 PM PDTTunnelled Power Line [...] Room # 836/836-01 ISO: None Item for locator specialist Comments Shift Summary: Include Pain RX [...] Management: PVR/Strcath/incont Stool Occurrence: 1(pt reported) (03/27/19 1846) [place] st Bowel Movement: 03/21/19(Patient estimatied date) (03/27/192324) Restraints TeleSitter or Bedside Sitter Discharge plan Patient/Family Goals [place]. C-SSRS Since you were last asked, have [...] intention has depression wishful of Monitoring Requirements [facility] Suicide Policy [facility] Suicide Risk/Telesitter Screening Utilizing this rating [...] Room # 836/836-01 ISO: None Item for locator specialist Comments Shift Summary: Include Pain RX BP within ordered parameters? Stroke pt?:Depression screen Day 2 Took over patient care from 8775-3923. BP peaked and PRN was administered with no effect. Physician was notified and hydralazine was prescribed but held for BP w/in parameters. Neuro Pt. Showing confusion and requires redirection to stay on topic. Pt. Is A&Ox4 with m armen prompts. No other changes in sensation or [...] intention has depression wishful of Monitoring Requirements [facility] Suicide Policy [facility] Suicide Risk/Telesitter Screening Utilizing this rating [...] Nursing Progress Note Patient Name: Estefani Jimenez Rillito Room # 836/836-01 ISO: None Item for locator specialist Comments Shift Summary: Include Pain RX BP within ordered parameters? Stroke pt?:Depression screen Day 2 Patient here for possible osteomyelitis of T11-T12. A/O X4. Cooperative with care today. Had dialysis from 0528-7667. AM medications held and given when pt [...] intention has depression wishful of Monitoring Requirements [facility] Suicide Policy [facility] Suicide Risk/Telesitter Screening Utilizing this rating [...] suicide observation protocols. lan of Care - Kay avila, AMILCAR Em - 03/27/2019 2:13 PM PDTSW: Green Barriers: lives out of town Plan: SNF lcharlie mcgraw of Care - Radha Haddad RN - 03/27/2019 1:17 AM PDT 8N & 8S Nursing Progress Note Patient Name: Estefani Tilley Room # 836/836-01 ISO: None Item for locator specialist Comments Shift Summary: Include Pain RX [...] intention has depression wishful of Monitoring Requirements [facility] Suicide Policy [facility] Suicide Risk/Telesitter Screening Utilizing this rating [...] 6:41 PM PDTAssumed care of pt from 7906-5140. Pt here wi th thoracic discitis, possible [...] Nursing Progress Note Patient Name: Estefani Jimenez Rillito Room # 836/836-01 ISO: None Item for locator specialist Comments Shift Summary: Include Pain RX BP within ordered parameters? Stroke pt?:Depression screen Day 2 Assumed care from 9658-7666. 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 [...] intention has depression wishful of Monitoring Requirements [facility] Suicide Policy [facility] Suicide Risk/Telesitter Screening Utilizing this rating [...] lan of Care - Kitchen , Radha Mcgraw RN - 03/26/2019 5:02 AM PDT 8N & 8S Nursing Progress Note Patient Name: Estefani Jimenez Rillito Room # 836/836-01 ISO: None Item for locator specialist Comments Shift Summary: Include Pain RX [...] to do assessment. Refused labs from the entry level lab technician until this nurse came and educated patient [...] wishful of Monitoring Requirements [facility] Suicide Policy [facility] Suicide Risk/Telesitter Screening Utilizing this rating [...] Room # 836/836-01 ISO: None Item for locator specialist Comments Shift Summary: Include Pain RX [...] intention has depression wishful of Monitoring Requirements [facility] Suicide Policy [facility] Suicide Risk/Telesitter Screening Utilizing this rating [...] 03/25/2019 7:59 AM PDTPlan of Care - KitRadha ramos RN - 03/25/2019 3:03 AM PDT 8N & 8S Nursing Progress Note Patient Name: Estefani Tilley Room # 836/836-01 ISO: None Item for locator specialist Comments Shift Summary: Include Pain RX [...] wishes she was n't alive. Monitoring Requirements [facility] Suicide Policy [facility] Suicide Risk/Telesitter Screening Utilizing this rating [...] based on suicide observation protocols. lan of [facility] - Dalia Roman RN - 03/24/2019 4:24 PM PDT 8N & 8S Nursing Progress Note Patient Name: Estefani Tilley Room # 836/836-01 ISO: None Item for locator specialist Comments Shift Summary: Include Pain RX BP within ordered parameters? Stroke pt?:Depression screen Day [address] guided bx of T11, T12. HD this afternoon and us sami DOMINGUEZF. R arm fistula wnl. IV ABX. Pain [...] Goals C-SSRS Monitoring Requirements [facility] Suicide Policy [facility] Suicide Risk/Telesitter Screening Utilizing this rating [...] Received a telephone call from Emili [facility] RN @ [facility] [phone]. Informed Emili that this patient was transferred to [facility]. Electronically signed by: Michelle Jackson 03/24/2019 8:45 lan of Ginger Poe RN - 03/24/2019 5:28 AM PDTFormatting of this note might be different from the o riginal. 8N & 8S Nursing Progress Note Patient Name: Estefani Tilley Room # 836/836-01 ISO: None Item for locator specialist Comments Shift Summary: Include Pain RX BP within ordered parameters? Stroke pt?:Depression screen Day 2 Pt admitted from hospital in [place] via [facility] at 0100. S/p c/o severe [...] Pending C-SSRS Monitoring Requirements [facility] Suicide Policy [facility] Suicide Risk/Telesitter Screening Utilizing this rating [...] | [facility] | | | POC | [facility] [address], | | SACRED | | | | [place] [address] | | HEART | | | |Performed by [facility] [address], [place] [address] | | MEDICAL | | | | [...] + + | JIMRENUKA LIZ | [address] | [place] [address] | | | [facility] | | | | | [...] | [facility] | | | POC | [facility] [address], | | SACRED | | | | [place] [address] | | HEART | | | |Performed by [facility] [address], [place] [address] | | MEDICAL | | | | [...] + + | BETH LIZ | [address] | [place] [address] | | | [facility] | | | | | [...] | | LABORATORY | | | | [facility] [address], | | [place] | | | | [place] [address] | | | | + + + + + + + + | Specimen | + + | Blood specimen | | (specimen) | + + + + + + + | Performing | Address | City/State/Zipcode | Phone Number | | Organization | | | | + + + + + | BETH LIZ | [address] | [place] [address] | | | [facility] | | | | | [...] ENCE | | | Immature | by [facility] [address], | K/uL | SACRED | | | Granulocyte | [place] [address] | | HEART | | | s |Performed by [facility] [address], [place] [address] | | MEDICA L | | | [...] + + | BETH LIZ | [address] | [place] [address] | | | [facility] | | | | | YANY [...] by | | | | | | [facility] [address], | | | | | | [place] [address] | | | | + + + + + + + + | Specimen | + + | Blood specimen | | (specimen) | + + + + + + + | Performing | Address | City/State/Zipcode | Phone Number | | Organization | | | | + + + + + | JIMRENUKA LIZ | [address] | [place] [address] | | | [facility] | | | | | [...] | | | POC | Performed by [facility] [address] | | SACRED | | | | [address], [place] | | HEART | | | | [address] | | MEDICAL | | | | [...] [address] | [place] [address] | | | [facility] | [...] | | | POC | Performed by [facility] [address] | | SACRED | | | | [address]th [place] | | HEART | | | | [address] | | MEDICAL | | | | [...] + + | JIMRENUKA LIZ | [address] | [place] [address] | | | [facility] | | | | | [...] | | | POC | Performed by [facility] [address] | | SACRED | | | | [address], [place] | | HEART | | | | [address] | | MEDICAL | | | | [...] SACRED | [address] | [place] [address] | | | [facility] | [...] | | | POC | Performed by [facility] [address] | | SACRED | | | | [address]th [place] | | HEART | | | | [address] | | MEDICAL | | | | [...] + + | BETH LIZ | [address] | [place] [address] | | | [facility] | | | | | [...] PROVIDE NCE | | | | by [facility] [address], | | SACRED | | | | [place] [address] | | HEART | | | |Performed by [facility] [address], [place] [address] | | MEDICAL | | | | [...] + + | BETH LIZ | [address] | [place] [address] | | | [facility] | | | | | [...] | 1.7 - 2.4 mg/dL | LUIS DAVISON | | | | by [facility] [address], | | SACRED | | | | [place] | | HEART | | | |Performed by [facility] [address], [place] | | MEDICAL | | | [...] + + | PROVIDERENUKA SACRED | [address] | [place], [place] | | | [facility] [...] | | LABORATORY | | | | [facility] [address], | | CERNER | | | | [place] [address] | | | | + + + + + + + + | Specimen | + + | Blood specimen | | (specimen) | + + + + + + + | Performing | Address | City/State/Zipcode | Phone Number | | Organization | | | | + + + + + | BETH LIZ | [address] | [place] [address] | | | [facility] | | | | | [...] ENCE | | | Counted | by [facility] [address], | | SACRED | | | | [place] [address] | | HEART | | | |Performed by [facility] [address], [place] [address] | | MEDICA L | | | [...] [address] | [place] [address] | | | [facility] | | | | | [...] | | | POC | Performed by [facility] [address] | | AGUSTO | | | | [address], [place] | | HEART | | | | [address] | | MEDICAL | | | | [...] + + | BETH LIZ | [address] | [place] [address] | | | [facility] | | | | | [...] | [facility] | | | POC | [facility] [address], | | SACRED | | | | [place] [address] | | HEART | | | |Performed by [facility] [address], [place] [address] | | MEDICAL | | | | [...] BETH LIZ | [address] | [place] [address] | | | [facility] | | | | | [...] | | | POC | Performed by [facility] [address] | | SACRED | | | | [address] [place], [place] | | HEART | | | | [address] | | MEDICAL | | | | [...] | BETH LIZ | [address] | [place] [address] | | | [facility] | [...] | [facility] | | | POC | [facility] [address], | | SACRED | | | | [place] [address] | | HEART | | | |Performed by [facility] [address], [place] [address] | | MEDICAL | | | | [...] + + | JIMRENUKA LIZ | [address] | [place] [address] | | | [facility] | | | | | [...] by | | | | | | [facility] [address], | | | | | | [place] [address] | | | | + + + + + + + + | Specimen | + + | Blood specimen | | (specimen) | + + + + + + + | Performing | Address | City/State/Zipcode | Phone Number | | Organization | | | | + + + + + | BETH LIZ | [address] | [place] [address] | | | [facility] | | | | | [...] ENCE | | | Counted | by [facility] [address], | | SACRED | | | | [place] [address] | | HEART | | | |Performed by [facility] [address], [place] [address] | | MEDICA L | | | [...] + + | BETH LIZ | [address] | [place], [place] | | | [facility] | | | | | [...] LUIS CE | | | | by [facility] [address], | | SACRED | | | | [place] | | HEART | | | |Performed by [facility] [address], [place] | | MEDICAL | | | [...] + + | BETH LIZ | [address] | [place] [address] | | | [facility] | | | | | [...] | | LABORATORY | | | | [facility] [address], | | [place] | | | | [place] [address] | | | | + + + + + + + + | Specimen | + + | Blood specimen | | (specimen) | + + + + + + + | Performing | Address | City/State/Zipcode | Phone Number | | Organization | | | | + + + + + | BETH LIZ | [address] | [place] [address] | | | [facility] | | | | | [...] | | | POC | Performed by [facility] [address] | | SACREVANS | | | | [address] [place], [place] | | HEART | | | | [address] | | MEDICAL | | | | [...] + + | BETH LIZ | [address] | [place] [address] | | | [facility] | | | | | [...] | | | POC | Performed by [facility] [address] | | SACRED | | | | [address] [place] | | HEART | | | | [address] | | MEDICAL | | | | [...] SACRED | [address] | [place], [place] | | | [facility] [...] | RIMAE | | | POC | [facility] [address], | | SACRED | | | | [place] | | HEART | | | |Performed by [facility] [address], [place] | | MEDICAL | | | [...] + + | BETH LIZ | [address] | [place] [address] | | | [facility] | | | | | [...] | | LABORATORY | | | | [facility] [address], | | [place] | | | | [place] [address] | | | | + + + + + + + + | Specimen | + + | Blood specimen | | (specimen) | + + + + + + + | Performing | Address | City/State/Zipcode | Phone Number | | Organization | | | | + + + + + | [facility] | [address] | [place] [address] | | | [facility] | | | | | [...] PHYLLIS | | | | | | BARR[place]NER [...] PROVID ENCE | | | | by [facility] [address], | | SACRED | | | | [place] [address] | | HEART | | | |Performed by [facility] [address], [place] [address] | | MEDICA L | | | | | | CENTER | | | | | | LABORA TORFausto | | | | | | CERNER | | + + + +------- ------+ + + + | Specimen | + + | Blood specimen | | (specimen) | + + + + + + + | Performing | Address | City/State/Zipcode | Phone Number | | Organization | | | | + + + + + | RIMAE [facility]ANS | [address] | [place] [address] | | | [facility] | | | | | [...] | | | POC | Performed by [facility] [address] | | SACREVANS | | | | [address] [place], [place] | | HEART | | | | [address] | | MEDICAL | | | | [...] + + | BETH LIZ | [address] | [place] [address] | | | [facility] | | | | | [...] | | | POC | Performed by [facility] [address] | | SACREVANS | | | | [address]th [place] | | HEART | | | | [address] | | MEDICAL | | | | [...] Ave. | [place] | | | [facility] | | | | | [...] | BETH | | | POC | [facility] [address], | | SACRED | | | | [place] | | HEART | | | |Performed by [facility] [address], [place] [address] | | MEDICAL | | | | [...] + + | BETH LIZ | [address] | [place] [address] | | | [facility] | | | | [...] | [facility] | | | POC | [facility] [address], | | SACRED | | | | [place] [address] | | HEART | | | |Performed by [facility] [address], [place] [address] | | MEDICAL | | | | [...] + | JIMJOSE ADora GOFFEVANS | [address] | [place] [address] | | | [facility] | | | | | [...] by | | | | | | [facility] [address], | | | | | | [place] [address] | | | | + + + + + + + + | Specimen | + + | Blood specimen | | (specimen) | + + + + + + + | Performing | Address | City/State/Zipcode | Phone Number | | Organization | | | | + + + + + | PROVIDEJOSE AE [facility]CRED | [address] | [place] [address] | | | [facility] | | | | | [...] | | | POC | Performed by [facility] [address] | | SACRED | | | | [address], [place] | | HEART | | | | [address] | | MEDICAL | | | | [...] + + | BETH LIZ | [address] | [place] [address] | | | [facility] | | | | | [...] | | | POC | Performed by [facility] [address] | | SACRED | | | | [address] [place] | | HEART | | | | [address] | | MEDICAL | | | | [...] + + | RIMAE AGUSTO | [address] | [place] [address] | | | [facility] | | | | | [...] | | | POC | Performed by [facility] [address] | | SACRED | | | | [address], [place] | | HEART | | | | [address] | | MEDICAL | | | | [...] + + | BETH LIZ | [address] | [place] [address] | | | [facility] | | | | | [...] PROVIDENCE | | | | Performed by [facility] [address] | | SACRED | | | | [address] [place] | | HEART | | | | [address] | | MEDICAL | | | | [...] [address] | [place] [address] | | | [facility] | | | | | [...] | | | POC | Performed by [facility] [address] | | SACREVANS | | | | [address] [place], [place] | | HEART | | | | [address] | | MEDICAL | | | | [...] + + | BETH LIZ | [address] | [place] [address] | | | [facility] | [...] by | | | | | | [facility] [address], | | | | | | [place] [address] | | | | + + + + + + + + | Specimen | + + | Blood specimen | | (specimen) | + + + + + + + | Performing | Address | City/State/Zipcode | Phone Number | | Organization | | | | + + + + + | JMIRENUKA LIZ | [address] | [place] [address] | | | [facility] | | | | | [...] | | LABORATORY | | | | [facility] [address], | | [place] | | | | [place] [address] | | | | + + + + + + + + | Specimen | + + | Blood specimen | | (specimen) | + + + + + + + | Performing | Address | City/State/Zipcode | Phone Number | | Organization | | | | + + + + + | BETH LIZ | [address] | [place] [address] | | | [facility] | | | | | [...] | | | | | | LABORA PETROSY | | | | | | CERNER [...] PROVID ENCE | | | | by [facility] [address], | | SACRED | | | | [place] [address] | | HEART | | | |Performed by [facility] [address], [place] [address] | | MEDICA L | | | | | | CENTER | | | | | | LABORA PHYLLIS | | | | | | CERNER | | + + + +------- ------+ + + + | Specimen | + + | Blood specimen | | (specimen) | + + + + + + + | Performing | Address | City/State/Zipcode | Phone Number | | Organization | | | | + + + + + | BETH LIZ | [address] | [place] [address] | | | [facility] | [...] | 180 - 914 pg/mL | LUIS DAVISON | | | B-12 | by [facility] [address], | | SACRED | | | | [place] [address] | | HEART | | | |Performed by [facility] [address], [place] [address] | | MEDICAL | | | | [...] | [address] | [place] [address] | | | [facility] | | | | | [...] by | | | | | | [facility] [address], | | | | | | [place] [address] | | | | + + + + + + + + | Specimen | + + | Blood specimen | | (specimen) | + + + + + + + | Performing | Address | City/State/Zipcode | Phone Number | | Organization | | | | + + + + + | JIMJOSE ADora LIZ | [address] | [place] [address] | | | [facility] | | | | | [...] | | | POC | Performed by [facility] [address] | | SACRED | | | | [address] [place] | | HEART | | | | [address] | | MEDICAL | | | | [...] [address] | [place] [address] | | | [facility] | | | | | [...] | | | POC | Performed by [facility] [address] | | SACRED | | | | [address], [place] | | HEART | | | | [address] | | MEDICAL | | | | [...] + | JIMJOSE ADora AGUSTO | [address] | [place] [address] | | | [facility] | | | | | [...] | | | POC | Performed by [facility] [address] | | SACRED | | | | [address] [place] | | HEART | | | | [address] | | MEDICAL | | | | [...] + + | BETH LIZ | [address] | [place] [address] | | | [facility] | | | | | [...] PROVID ENCE | | | | by [facility] [address], | | SACRED | | | | [place] [address] | | HEART | | | |Performed by [facility] [address], [place] [address] | | MEDICA L | | | [...] + | JIMJOSE ADora LIZ | [address] | [place] [address] | | | [facility] | | | | | [...] LUIS CE | | | | by [facility] [address], | | SACRED | | | | [place] [address] | | HEART | | | |Performed by [facility] [address], [place] [address] | | MEDICAL | | | | [...] SACRED | [address] | [place] [address] | | | [facility] | | | | [...] | | LABORATORY | | | | [facility] [address], | | [place] | | | | [place] [address] | | | | + + + + + + + + | Specimen | + + | Blood specimen | | (specimen) | + + + + + + + | Performing | Address | City/State/Zipcode | Phone Number | | Organization | | | | + + + + + | BETH LIZ | [address] | [place] [address] | | | [facility] | | | | | [...] | | | POC | Performed by [facility] [address] | | SACRED | | | | [address] [place], [place] | | HEART | | | | [address] | | MEDICAL | | | | [...] + | JIMJOSE ADora AGUSTO | [address] | [place] [address] | | | [facility] | | | | | [...] | | | POC | Performed by [facility] [address] | | SACRED | | | | [address], [place] | | HEART | | | | [address] | | MEDICAL | | | | [...] [address] | [place] [address] | | | [facility] | [...] | SACRED | | | Total | [address] | | HEART | | | | [address] [place], [place] | | MEDICAL | | | | [id number] Daniel | | JOSE | | | | Lauro HOLDEN Ph:[phone] | | LABORATORY | | | | [...] + + | BETH LIZ | [address] | [place] [address] | | | [facility] | | | | | [...] | | | + +---------+ + + Caitlin, Alfonso, Smear (03/24/2019 3:14 PM PDT) + + [...] | [facility] | | | | by [facility] [address], | | HEART | | | | [place] [address] | | MEDICAL | | | | [...] + + | [facility] | [address] | [place] [address] | | | [facility] | | | | | LABORATORY CERNER | | | | + + + + + Caitlin, JIMMIE Smear (03/24/2019 3:14 PM PDT) + + [...] | [facility]CR[facility] | | | | by [facility] [address], | | HEART | | | | [place] [address] | | MEDICAL | | | | [...] + + | B[facility] | [address] | [place] [address] | | | HEART [facility] | | | | [...] | MEDICAL | | | | by [facility] [address], | | [place] | | | | [place] [address] | | LABORATORY | | | |Performed by [facility] [address], [place] [address] | | CERNER | | | | [...] [address] | [place] [address] | | | [facility] | | | | | [...] | | | POC | Performed by [facility] [address] | | AGUSTO | | | | [address] [place], [place] | | HEART | | | | [address] | | MEDICAL | | | | [...] + + | BETH LIZ | [address] | [place] [address] | | | [facility] | | | | | [...] | | | POC | Performed by [facility] [address] | | DENVERED | | | | [address]th [place] | | HEART | | | | [address] | | MEDICAL | | | | [...] + | [facility] | [address] | [place] [address] | | | HEART [facility] | | | | [...] CENTER | | | | 3.5Performed by [facility] [address] | | LABORATORY | | | | [address] [place], [place] | | CERNER | | | | [address] | | | | + + + + + + + + | Specimen | + + | Blood specimen | | (specimen) | + + + + + + + | Performing | Address | City/State/Zipcode | Phone Number | | Organization | | | | + + + + + | [facility] | [address] | [place] [address] | | | [facility] | | | | [...] | | | Immature | Performed by [facility] [address] | K/uL | SACRED | | | Granulocyte | [place] | | HEART | | | s | [phone] | | MEDICAL | | | | [...] + + | BETH LIZ | [address] | [place] [address] | | | [facility] | | | | | [...] | | LABORATORY | | | | [facility] [address] | | [place] | | | | [place] [address] | | | | + + + + + + + + | Specimen | + + | Blood specimen | | (specimen) | + + + + + + + | Performing | Address | City/State/Zipcode | Phone Number | | Organization | | | | + + + + + | [facility] | [address] | [place] [address] | | | [facility] | | | | | [...] CONTINUOUS PRN, hypoglycemia, | | | Starting 03/24/19 at 0206, | | | Start infusion [...] | | | First dose on [facility] 03/30/19 at 1130 | | AM [...] scheduled: AC, NPO, Daytime | | | 4769-1694 Use NIGHT DOSE for | | | doses scheduled: HS, 3AM, | | | Nighttime 3337-9111 If the BG is | | | [...]
--- OUTSIDE RECORDS SUMMARY | ~2020-03-21 | XMS | Encounter Summary ---
Demographics + + + | Address | [address] | | | [place] [address] | + + + | Home Phone [...] + | Author | [facility] | | | and [place] | + + + | Organization | [facility] | | | and [place] | + + + | Address | Unknown | + + + | Phone | Unavailable | + + + Support + + + + + | Name | Relationship | Address | Phone | + + + + + | India Tilley | ECON | [address] | | | | | [place], [place] | | | | | [address] | | + + + + + [...] Team Providers + +------+ + | Care Finish Sander Name | Role | Phone | + +------+ + PCP | Unavailable | + +------+ + Encounter Details +--------+ + + + + | Date | Type | Department | Care Team | Description | +--------+ + + + + | 02/28/ | [facility] | [facility] | | | | 2006 | Encounter | MED CTR XRAY [address] | | | | | | [place] | | | | | | [place] [address] | | | | | | [phone] | | | +--------+ + + + [...]
--- OUTSIDE RECORDS SUMMARY | ~2020-03-21 | XMS | Encounter Summary ---
Demographics + + + | Address | [address] | | | [place] [address] | + + + | Home Phone [...] Author | [facility] | | | and [place] | + + + | Organization | [facility] | | | and [place] | + + + | Address | Unknown | + + + | Phone | Unavailable | + + + Support + + + + + | Name | Relationship | Address | Phone | + + + + + | India Tilley | ECON | [address] | | | | | [place], [place] | | | | | [address] | | + + + + + [...] Team Providers + +------+ + | Care Avionics Shop Supervisor Name | Role | Phone | + +------+ + | Renato Pierson | PCP | | + +------+ + Reason for Visit Diagnostic/Screening (Urgent) + +--------+ + + + + | Status | Reason | Specialty | Diagnoses / | Referred By | Referred To | | | | | Procedures | Contact | Contact | + +--------+ + + + + | Authorized | | Radiology | Diagnoses | Echaiz | [address] | | | | | Infection | MillerNick | [address] | | | | | of | [place], | [place], | | | | | 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 [address] | [place] [address] | | | | | al disc | [address] | Phone: | | | | | (pyogenic), | [place], [place] | [phone] | | | | | thoracic | [address] | Fax: | | | | | region (HCC) | Phone: | [phone] | | | | | | [phone] | | | | | | 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: | | | | | | s of | [phone] | | | | | | thoracic [...] + + | 07/13/ | Hospital | [facility] | Fabiana Breeno, | Canceled (OTHER) | | 2019 | Encounter | CENTER IR INTRA OP | Nick Apodaca MD | | | | | [address] | [address] | | | | | [place], [place] | [place] [address] | | | | | [address] | [phone] | | | | | [phone] | | | | | | | Wm Mon[place] | | | | | | MD [address] | | | | | | [address] [place] | | | | | | [place] [address] | | | | | | [phone] | | | | | | | [...]
--- OUTSIDE RECORDS SUMMARY | ~2020-03-21 | XMS | Encounter Summary ---
Demographics + + + | Address | [address] | | | [place] [address] | + + + | Home Phone | | + + + | Preferred Language | Unknown | + + + | Marital Status | Single | + + + | Zoroastrian Affiliation | Unknown | + + + | Race | Unknown | + + + | Ethnic Group | Unknown | + + + Author + + + | Author | [facility] | | | and [place] | + + + | Organization | [facility] | | | and [place] | + + + | Address | Unknown | + + + | Phone | Unavailable | + + + Support + + + + + | Name | Relationship | Address | Phone | + + + + + | India Tilley | ECON | [address] | | | | | [place], [place] | | | | | [address] | | + + + + + [...] Team Providers + +------+ + | Care Machine Packer Name | Role | Phone | + +------+ + PCP | Unavailable | + +------+ + Encounter Details +--------+ + + + + | Date | Type | Department | Care Team | Description | +--------+ + + + + | 10/22/ | [facility] | [facility] | Gopi Muñoz | Chronic kidney | | 2018 | Encounter | MED CTR ULTRASOUND | M, DO [address] | disease, stage V | | | | [address] [place] | [address] [place] | (HCC) | | | | [place], [place] | [place] [address] | | | | | [address] | [phone] | | | | | [phone] | | | | | | | [...] | | BILATERAL | | PST | ([facility]) | results section. | + [...]
--- OUTSIDE RECORDS SUMMARY | ~2020-03-21 | XMS | Encounter Summary ---
Demographics + + + | Address | [address] | | | [place] [address] | + + + | Home Phone [...] + | India Tilley | ECON | [address] | | | | | [place], [place] | | | | | [address] | | + + + + + [...] Team Providers + +------+ + | Care [place] Auditor Name | Role | Phone | + [...] [place], | | | | | [place] ESRD | [place], | [place] [address] | | | | | RELATED SVC | [place] | Phone: | | | | | MONTHLY | [address] | [phone] | | | | | 20&/> YR OLD | Phone: | Fax: | | | | | 4/> VISITS | [phone] | [phone] | | | | | | Fax: | | | | | | | [phone] | | +--------+--------+ + + + + [...] | dialysis (HCC) | | | | [place], [place] | [place] [address] | (Primary Dx) | | | | [address] | [phone] | | | | | [phone] | | | +--------+ + + + [...]
--- OUTSIDE RECORDS SUMMARY | ~2020-03-21 | XMS | Encounter Summary ---
Demographics + + + | Address | [address] | | | [place] [address] | + + + | Home Phone | | + + + | Preferred Language | Unknown | + + + | Marital Status | Single | + + + | Anabaptism Affiliation | Unknown | + + + | Race | Unknown | + + + | Ethnic Group | Unknown | + + + Author + + + | Author | [facility] | | | and [place] | + + + | Organization | [facility] | | | and [place] | + + + | Address | Unknown | + + + | Phone | Unavailable | + + + Support + + + + + | Name | Relationship | Address | Phone | + + + + + | India Tilley | ECON | [address] | | | | | [place], [place] | | | | | [address] | | + + + + + [...] Team Providers + +------+ + | Care Artillery Meteorological Man Name | Role | Phone | + +------+ + PCP | Unavailable | + +------+ + Encounter Details +--------+ + + + + | Date | Type | Department | Care Team | Description | +--------+ + + + + | 06/19/ | Telephone | [facility] | Ibis Arriola | | | 2019 | | [facility] | LISA Restrepo | | | | | [address] | | | | | | [place] | | | | | | [address] | | | | | | [phone] | | | +--------+ + + + [...] Miscellaneous Notes Telephone Encounter - Heather Fox Game Developer - 06/20/2019 10:31 AM PDTCalle d pt to scheduled bone biopsy. Per pt, she is currently admitted at [facility] as of last ht. Pt would like to have biopsy done at [facility] if possible. elephone Encounter - Deepa Melendez [...] T11-T12. Referring Physician: Dereck Miller Office contact: [phone] Patient Phone: [phone] Imaging: MR Lsp [id number] (05/23); Tsp [id number] (05/18) Patient Dx: As above, recent admit [facility] (discharge [facility] in [facility]). ESRD, DM, HTN Patient BMI: 28 Blood thinners: none Any Red Flags?: To be performed by: 06/15/19 8:50 You routed this conversation to MD Ta Westbrook MD Kelly K eophilavanh, Game Developer LISA King PA documented in th is encounter Plan of Treatment Not on filedocumented as of this encounter Visit Diagnoses Not on filedocumented in this encounter"
--- OUTSIDE RECORDS SUMMARY | ~2020-03-21 | XMS | Encounter Summary ---
Demographics + + + | Address | [address] | | | [place] [address] | + + + | Home Phone [...] Author | [facility] | | | and [place]it[place] | + + + | Organization | [facility] | | | and [place] | + + + | Address | Unknown | + + + | Phone | Unavailable | + + + Support + + + + + | Name | Relationship | Address | Phone | + + + + + | India Tilley | ECON | [id number] | | | | | [place], [place] | | | | | [address] | | + + + + + [...] Providers + +------+ + | [employer] Professor Name | Role | Phone | + [...] Specialty | Home Health | Diagnoses | [place], | | | | Services | Services | ESRD on | Kd, MD | | | | Required | | dialysis | [address] | | | | | | (HCC) | [address] [place] | | | | | | Hypoxia Leg | [place] | | | | | | edema, left | [id number] | | | | | | | Phone: | | | | | | Non-occlusiv | [phone] | | | | | | e thrombus | Fax: | | | | | | Poor social | [phone] | | | | | | situation | | | | | | | ESRD (end | | | | | | | stage renal | | | | | | | disease) on | | | | | | | dialysis | | | | | | | (HCC) | | | | | | | Anemia due | | | | | | | to chronic | | | | | | | kidney | | | | | | | disease, on | | | | | [...] | | | | | | | Essential | | | | | | | hypertension | | | | | | | Anemia due | | | | | | | to end | | | | | | | stage renal | | | | | | | disease | | | | | | | (HCC) | | | | | | | Secondary | | | | | | | hyperparathy | | | | | | | roidism | | | | | | | (HCC) | | | | | | | Cellulitis | | | | | | | of left | | | | | | | lower | | | | | | | extremity | | | | | | | Diabetes | | | | | | | mellitus | | | | | | | type II, non | | | | | | | insulin | | | | | | | dependent | | | | | | | (HCC) | | | | | | | Hypothyroidi | | | | | | | sm, | | | | | | | unspecified | | | | | | | type | | | | | | | Gastroesopha | | | | | | | geal reflux | | | | | | | disease, | | | | | | | esophagitis | | | | | | | presence not | | | | | | | specified | | | | | | | Heart | | | | | | | disease | | | | | | | Hyperlipidem | | | | | | | ia, | | | | | | | unspecified | | | | | | | hyperlipidem | | | | | | | ia type | | | | | | | Depression, | | | | | | | unspecified | | | | | | | depression | | | | | | | type Other | | | | | | | secondary | | | | | | | osteoarthrit | | | | | | | is of | | | | | | | multiple | | | | | | | sites Other | | | | | | | chronic | | | | | | | pain | | | | | | | Cerebral | | | | | | | artery | | | | | | | occlusion | | | | | | | with | | | | | | | cerebral | | | | | | | infarction | | | | | | | (HCC) | | | | | | | Marijuana | | | | | | | use Chronic | | | | | | | renal | | | | | | | insufficienc | | | | | | | y, stage IV | | | | | | | (severe) | | | | | | | (HCC) | | | | | | | Non-complian | | | | | | | ce Discitis | | | | | | | of thoracic | | | | | | | region | | | | | | | Osteomyeliti | | | | | | | s of | | | | | | | thoracic | | | | | | | region (HCC) | | | | | | | Pleural | | | | | | | effusion, | | | | | | | left | | | | | | | Influenza A | | | | | | | RBBB (right | | | | | | | bundle | | | | | | | branch | | | | | | | block) | | | +--------+ + + + + + Reason for Visit + + + | Reason | Comments | + + + | Leg Pain | | + + + Auth/Cert +--------+--------+ + + + + | Status | Reason | Specialty | Diagnoses / | Referred By | Referred To | | | | | Procedures | Contact | Contact | +--------+--------+ + + + + | | | | Diagnoses | | | | | | | | | | | | | | Non-occlusiv | | | | | | | e thrombus | | | | | | | Hypoxia | | | | | | | ESRD on | | | | | | | dialysis | | | | | | | (HCC) Leg | | | | | | | edema, left | | | | | | | Poor social | | | | | | | situation | | | | | | | | | | +--------+--------+ + + + + Encounter Details +--------+ + + + + | Date | Type | Department | Care Team | Description | +--------+ + + + + | 01/17/ | Hospital | [facility] | Hair Ramos, | ESRD on dialysis | | 2019 - | Encounter | [facility] | [address] | ([facility]) (Primary Dx); | | | | [address] [place] | [place] | Hypoxia; Leg edema, | | 01/19/ | | [place] [address] | [phone] | left; Non-occlusive | | 2019 | | [phone] | | thrombus; Poor | | | | | Haris Segal MD | social situation; | | | | | [address] | ESRD (end stage | | | | | [facility] [facility] | renal disease) on | | | | | [id number] | dialysis ([facility]); | | | | | | Anemia due to | | | | | | chronic kidney | | | | | | disease, on chronic | | | | | | dialysis ([facility]); | | | | | | Hypervolemia, | | | | | | unspecified | | | | | | hypervolemia type; | | | | | | Essential | | | | | | hypertension; Anemia | | | | | | due to end stage | | | | | | renal disease (HCC); | | | | | | Secondary | | | | | | hyperparathyroidism | | | | | | (HCC); Cellulitis of | | | | | | left lower | | | | | | extremity; Diabetes | | | | | | mellitus type II, | | | | | | non insulin | | | | | | dependent - DIET | | | | | | Control; | | | | | | Hypothyroidism, | | | | | | unspecified type; | | | | | | Poor historian; | | | | | | Gastroesophageal | | | | | | reflux disease, | | | | | | esophagitis presence | | | | | | not specified; | | | | | | Pulmonary | | | | | | hypertension, mild | | | | | | (HCC); Arthritis; | | | | | | History of blood | | | | | | clots; Cancer (HCC); | | | | | | Heart disease; | | | | | | Seasonal allergies; | | | | | | Hyperlipidemia, | | | | | | unspecified | | | | | | hyperlipidemia type; | | | | | | Depression, | | | | | | unspecified | | | | | | depression type; | | | | | | Disorder of kidney | | | | | | and ureter; 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 | | | | | | metabolism; Facial | | | | | | cellulitis; Left | | | | | | orbital abscess; 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; Orbital | | | | | | cellulitis on left; | | | | | | Other secondary | | | | | | osteoarthritis of | | | | | | multiple sites; | | | | | | Other chronic pain; | | | | | | 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 | | | | | | (HCC); Marijuana | | | | | | use; Chronic renal | | | | | | insufficiency, stage | | | | | | IV (severe) (HCC); | | | | | | Non-compliance; | | | | | | probable Discitis of | | | | | | thoracic region; | | | | | | Osteomyelitis of | | | | | | thoracic region | | | | | | (HCC); Pleural | | | | | | effusion, left; | | | | | | Influenza A; RBBB | | | | | | (right bundle branch | | | | | | block) | +--------+ + + + + Social [...] + + + | Blood Pressure | 147/73 | 01/20/2020 2:58 PM | | | | | PDT | | + + + + + | Pulse | 81 | 01/20/2020 2:58 PM | | | | | PDT | | + + + + + | Temperature | 37.1 C (98.7 F) | 01/20/2020 2:58 PM | | | | | PDT | | + + + + + | Respiratory Rate | 18 | 01/20/2020 3:33 PM | | | | | PDT | | + + + + + | Oxygen Saturation | 93% | 01/20/2020 2:58 PM | | | | | PDT | | + + + + + | Inhaled Oxygen | - | - | | | Concentration | | | | + + + + + | Weight | 74.8 kg (165 lb) | 01/18/2020 3:11 PM | | | | | PDT | | + + + + + | Height | 172.7 cm (5' 8") | 01/18/2020 3:11 PM | | | | | PDT | | + + + + + | Body Mass Index | 25.09 | 01/18/2020 3:11 PM | | | | | [...] documented as of this encounter Discharge Summaries Kd Felix MD - 01/20/2020 6:20 PM PDT [place], [place] HOSPITALIST DISCHARGE SUMMARY Pt. Name/Age/: Estefani Tilley 74 y.o. 1945 Date of Admission: 01/18/2020 Date of Discharge: 01/20/2020 Admitting Physician: Haris Segal MD Primary Care Provider: DIPESH Mccollum Discharging Physician: Kd Felix MD DISCHARGE DIAGNOSES: Active Hospital Problems Diagnosis Cellulitis of left lower extremity Poor historian Pulmonary hypertension, mild GERD (gastroesophageal reflux disease) ESRD (end stage renal disease) on dialysis Diabetes mellitus type II, non insulin dependent - DIET Control HTN (hypertension) Hypothyroidism Resolved Hospital Problems No resolved problems to display. Nonhealing wound on the left lower extremity DISCHARGE MEDICATIONS: Discharge Medications Unchanged Medications Details albuterol 90 mcg/puff inhaler Inhale 2 puffs into the lungs 4 times daily as needed for Shortness of Breath. amLODIPine 5 mg tablet Take 1 tablet by mouth 2 times daily. aka: NORVASC ARTIFICIAL TEAR SOLUTION OP Place 1-2 drops [...] 4 times daily (before meals and nightly). aka: PHOSLO cetirizine 10 mg tablet Take 5 mg by mouth Daily. For allergies aka: zyrTEC cholecalciferol 100 mcg (4,000 units) tablet Take 4,000 Units by mouth Daily. aka: THERA-D cloNIDine 0.3 mg/[address] 1 patch onto the skin Once a week. aka: CATAPRES EPOGEN 10,000 units/mL injection Generic drug: epoetin karthik Inject 4,000 Units into the vein Three times a week. furosemide 80 mg tablet Take 2 tablets by mouth 2 times daily. aka: LASIX gabapentin 100 mg capsule Take [...] mouth every morning (before breakfast). aka: SYNTHROID losartan 100 MG tablet Take 1 tablet by mouth Daily. aka: COZAAR melatonin 3 mg Tabs Take 1 tablet by mouth nightly as needed for Insomnia. olopatadine 0.1% ophthalmic solution Place 1-2 drops into both eyes 2 times daily. aka: PATANOL pantoprazole 40 mg tablet Take 40 mg by mouth every morning (before breakfast). aka: PROTONIX traMADol 50 mg tablet Take 1 tablet by mouth every 8 hours as needed. aka: [facility] HOSPITAL COURSE: Please refer to the H&P for full details and the most recent rounding rounding (progress) n ote. In short Mrs Tilley is a 74 y/o lady with pmhx of HTN, DM, GERD, hypothyroidism, anemia, ESRD on H D via RUE AV fistula, chronic discitis/osteomyelitis at T11-T12 who presented to the [facility] with nonhealing left lower extremity wound, she was found hypoxic and short of breath. Ev aluation revealed volume overload with BNP over 5000 and major electrolyte abnormalities lik brandy due to missed hemodialysis, she was admitted for wound management and treatment of volum e overload. She received hemodialysis on 01/18 with large UF and resolution of her respirator y symptoms. Her wound did not appear to be acutely infected and antibiotics were stopped, w ill consult in-house with recommendations of routine wound care. Patient was evaluated by r espiratory therapist and supplemental O2 1 L/min was prescribed as needed to keep saturation over 90%. Home health was prescribed at discharge to follow-up on wound care at home and p hysical therapy. Nephrology service follow patient in house and will arrange for outpatient hemodialysis, patient will be contacted on Wednesday morning with instructions on where to pre sent for HD treatments. Patient's blood pressure was running high in-house I increased amlo dipine and switch metoprolol to carvedilol for better BP control. Other medical problems re mained stable and did not recommend against current management. Patient discharged from the hospital in stable condition to follow-up with PCP, nephrology within 7 days of discharge. Most recent weight: Input and output for last 24hrs: Wt Readings from Last 1 Encounters: 01/18/20 74.8 kg (165 lb) I/O last 24 Hours: In: 370 [P.O.:370] Out: 3493 [Urine:275] Vitals Ranges: Temp: [36.6 C (97.8 F)-37.2 C (98.9 F)] 37.1 C (98.7 F) Pulse: [74-97] 81 Resp: [16-18] 18 BP: (147-174)/(66-88) 147/73 Vitals: Temp: 37.1 C (98.7 F) BP: 147/73 Pulse: 81 Resp: 18 SpO2: 93 % SpO2 93 % on nasal cannula at flow rate 1L/min PHYSICAL EXAM: Patient seen and examined by me on discharge day Constitutional: NAD, afebrile Eye: PERRLA, anicteric Cardiac: RRR, soft systolic ejection murmur in the precordial area, S1/S2, no murmurs, rubs or gallops, mild bilateral LE pitting edema Lung: non labored breathing, small crackles over both bases, faint scattered rhonchi, no wh eezing Abdomen: soft, NT, non distended, no HSM nor masses, BS + Skin: There is a 4 x 2 cm scabbed wound on the inner part of left lower extremity just unde r the knee, dry, does not appear to be overtly infected, there is mild inflammation around t he scab, does not drain Psych: mood and affect normal, orientedx3, conversing appropriately PROCEDURES AND CONSULTS: Procedures Hemodialysis via right aVF Consults Nephrology Will consult PT/OT PENDING RESULTS: None DISPOSITION AND DISCHARGE INSTRUCTIONS: Condition: Patient being discharged with condition improved. Diet: Renal/diabetic diet Greater than 30 minutes were spent on discharge and coordination of post-hospital care. Electronically signed by: Kd Felix MD, 01/20/2020 6:[address] [facility] Portions of this chart may have been created with [employer] voice recognition software. Occasi onal wrong-word or sound-alike substitutions may have occurred due to the inherent mckeon itations of voice recognition software. Please read the chart carefully and recognize, using context, where these substitutions have occurred documented in this enco unter Medications at Time of Discharge + + [...] documented as of this encounter Progress Notes Bry Lucero, FOOD ORDER DELIVERY RUNNER - 01/20/2020 2:34 PM PDT 01/20/20 1432 Oxygen Therapy Home O2 eval performed? yes Resting on RA (%) 87 Resting on O2 (%)(add L/Min in comment) 94 Patient not walking without PT help. Will need O2 at 1 l/m at rest 05/04. Electronically sig javi by Bry Lucero, FOOD ORDER DELIVERY RUNNER at 01/20/2020 2:35 PM PDTFaOrly jensen ARNP - 01/19 11:37 AM PDT [facility] NEPHROLOGY PROGRESS NOTE Patient: Estefani Tilley : 1945 Hospital Day # 2 ASSESSMENT/PLAN 1. ESRD on hemodialysis. Access: Right upper arm AV fistula. Pt had been dialyzing in [place], last treatment on 01/16/2020. On wait list for dialysis at [facility]. Needing placement at another dialysis facility, [facility] or [facility]. History of intermittent non adherence to dialysis treatments. Hemodialysis yesterday, tolerated well with total ultrafiltration 3 Liters. Oxygenating wel l on 2L. Hyperkalemia resolved with hemodialysis. -Next hemodialysis 01/22/20, unless hyperkalemic or progressively hypervolemic. 2. Hypertension, uncontrolled. Non adherent to medications. Per home medication record, she was on amlodipine, clonidine p atch 0.3 mg, labetalol, losartan and furosemide in the recent past, though that may have bee n changed while in [place]. Amlodipine 5 mg BID, furosemide 160 mg BID. -given non adherence, will start clonidine patch 3. Anemia, due to ESRD. Iron stores are low. -Epogen 10,000 Units TIW. -start ferrlecit 125 mg daily x 4 doses. 4. Secondary hyperparathyroidism. Serum phosphorus is high, though improved with dialysis. No hypercalcemia. -increase phosphate binder, calcium acetate 5. Left lower leg wound. -Per hospitalist 24 HR EVENTS Hemodialysis, tolerated without problems. COVID negative. SUBJECTIVE Patient resting in bed. Complains that she did not sleep well because they won't give her t he correct medication. She does not like the food because they give her artificial sweeteners, "rat poison". She d oes not want to answer questions but denies chest pain or shortness of breath, or nausea/vom iting. CURRENT MEDICATIONS Scheduled Meds: amLODIPine 10 mg Oral BID calcium acetate 667 mg Oral TID WC epoetin karthik-epbx 10,000 Units Subcutaneous Once per day on Wed furosemide 160 mg Oral BID gabapentin 100 mg Oral Daily heparin 500 Units Intravenous With each dialysis heparin 5,000 Units Subcutaneous 2 times per day insulin lispro 0-12 Units Subcutaneous 4x Daily WC and HS levothyroxine 75 mcg Oral QAM AC olopatadine 1-2 drop Both Eyes BID pantoprazole 40 mg Oral QAM AC Continuous Infusions: dextrose 10% Heparin Infusion 200 Units/hr (01/19/20 0809) PRN Meds:acetaminophen, albumin, albuterol, calcium carbonate, Hypoglycemia Management A ND POCT Glucose AND dextrose AND dextrose 10%, fentaNYL (PF), gabapentin, hydrALAZ INE, labetalol, lidocaine (PF), sodium chloride 0.9% OBJECTIVE Vital sign ranges for last 24hrs: Input and output for last 24hrs: Temp: [36.4 C (97.6 F)-37.2 C (98.9 F)] 36.6 C (97.8 F) Pulse: [61-97] 74 Resp: [16-18] 16 BP: (153-186)/(66-98) 153/78 SpO2 Av.4 % Min: 89 % Max: 99 % Flow (L/min) Av Min: 2 Max: 2 First: 74.8 kg (01/18/201510)Last: 74.8 kg (01/18/201510)Difference: 0kg 01/18 701 - 699 In: 370 [P.O.:370] Out: 3493 [Urine:275] Physical Exam Vitals signs reviewed. Constitutional: General: She is not in acute distress. Appearance: She is well-developed. She is ill-appearing (chronically ill, disheveled). Neck: Musculoskeletal: Neck supple. Cardiovascular: Rate and Rhythm: Normal rate and regular rhythm. Heart sounds: Murmur (2/6 systolic) present. No friction rub. No gallop. Pulmonary: Effort: Pulmonary effort is normal. No respiratory distress. Breath sounds: Rales (bases) present. No wheezing or rhonchi. Abdominal: General: Bowel sounds are normal. Palpations: Abdomen is soft. Musculoskeletal: Right lower leg: Edema present. Left lower leg: Edema present. Comments: 1+ edema below knees. Right upper arm AV fistula with positive bruit. Skin: General: Skin is warm. Findings: No rash. Neurological: Mental Status: She is alert and oriented to person, place, and time. Psychiatric: Speech: Speech normal. Recent Labs Lab 01/20/20 0411 01/19/20 0629 01/18/20 1552 WBC 6.7 7.9 7.4 HGB 8.0* 8.4* 8.2* HCT 26.8* 28.0* 26.8* PLT 347 351 369 Recent Labs Lab 01/20/20 0411 01/19/20 0410 01/18/20 1551 NA 134* 136 135* K 4.8 5.3* 5.5* CL 96* 96* 94* CO2 30 31 31 BUN 33* 50* 46* CREA 3.84* 5.04* 4.69* MG 1.8 1.9 -- CALCIUM 8.9 8.8 8.8 PHOS 6.5* 9.1* -- ALBUMIN -- -- 3.4 Diagnostic Studies: Available data reviewed personally. Significant results and findings are addressed here or in the Assessment and Plan. I spent 25 minutes face to face with patient and on hospital unit; greater than 50% was spe nt in counseling and coordination of care regarding hemodialysis. KAYLA Abdi Electronically signed: 01/20/2020 11:38 AM [facility] NEPH[facility]OLOG[facility] Kd Burt MD - 01/19/2020 3:52 PM PDT [facility] [place] [facility]PITAL[facility] PROGRESS NOTE Patient: Estefani Tilley : 1945: Age: 74 y.o. MedRec: [id number] Admission date: 01/18/2020 Hospital day # : 1 Physician author: Kd Felix MD Today: 01/19/2020 Assessment and Hospital Course Mrs Tilley is a 74 y/o lady with pmhx of HTN, DM, GERD, hypothyroidism, anemia, ESRD on H D via RUE AV fistula, chronic discitis/osteomyelitis at T11-T12 [facility], she was found hypoxic and short of breath. Ev aluation revealed volume overload with BNP over 5000 and major electrolyte abnormalities lik brandy due to missed hemodialysis, she was admitted for antibiotics and treatment of volume ove rload. She received hemodialysis on 01/18 with large UF. Her wound does not appear to be acu tely infected. Pending further clinical improvement, outpatient HD arrangements, wound cons ult. Plan Acute respiratory failure due to volume overload She has diastolic dysfunction and pulmonary hypertension on ECHO from 03/2019 BNP over 5000 upon presentation Received HD with large UF on 01/18 with great clinical improvement Satting well and comfortable on 2 L via nasal cannula Will continue inpatient HD as per nephrology, volume management mainly HD dependent as she is not making almost any urine Limit oral fluid intake to avoid overload Monitor closely respiratory status LLE wound Fairly deep but appears to be healing, dry scab without features of acute infection There is no drainage and no major inflammation around the wound She has been afebrile, no white count, will hold off on antibiotics for now Obtain wound consult Monitor clinically ESRD On HD since 10/2017, assess RUE AVF She is to go to dialysis in [place], last HD 01/16/2020 Nephrology following in-house Will need outpatient arrangements for HD in the area if she wishes to stay Volume and electrolyte management per HD Will limit fluid intake to avoid overload Renal diet Anemia Likely secondary to renal hernia Hemoglobin 8.4, she did not have any signs of bleeding Continue close monitoring Darbepoetin per nephrology HTN Running high since Admission, she has been noncompliant Continue amlodipine 5 twice daily, Lasix 160 mg twice daily Will need to assess her response while compliant Monitor BP and adjust meds as needed DM Also noncompliant at home Started on supplemental scale Sugars have been variable in house but mostly controlled Continue supplemental scale, will start standing insulin based on requirements Diabetic diet HLD Continue statin, follow-up on as outpatient GERD Continue PPI, monitor symptoms Hypothyroidism Continue levothyroxine, monitor symptoms DVT prophylaxis: SCD Heparin subcu CODE STATUS: Full code Disposition: Continue inpatient care Subjective CC LLE wound She is feeling fairly well today, stated that she came to the hospital with lower extremity wound, denied shortness of breath, chest pain or abdominal issues. ROS Constitutional: in no acute distress, afebrile Cardiac: Denies chest pain Pulmonary: Denies shortness of breath or cough GI: Denies nausea vomiting or abdominal pain : Passing minimal urine Skin: Wound on the left lower extremity Psyche: Alert and oriented, conversing appropriately Exam Constitutional: NAD, afebrile Eye: PERRLA, anicteric Cardiac: RRR, soft systolic ejection murmur in the precordial area, S1/S2, no murmurs, rubs or gallops, mild to moderate bilateral LE pitting edema Lung: non labored breathing, small crackles over both bases, faint scattered rhonchi, no wh eezing Abdomen: soft, NT, non distended, no HSM nor masses, BS + Skin: There is a 4 x 2 cm scabbed wound on the inner part of left lower extremity just unde r the knee, dry, does not appear to be overtly infected, there is mild inflammation around t he scab, does not drain Psych: mood and affect normal, orientedx3, conversing appropriately Objective Data Vitals Ranges: Temp: [36.2 C (97.2 F)-36.6 C (97.9 F)] 36.5 C (97.7 F) Pulse: [61-81] 81 Resp: [15-24] 18 BP: (147-186)/(68-98) 174/82 Vitals: Temp: 36.5 C (97.7 F) BP: 174/82 Pulse: 81 Resp: 18 SpO2: 95 % SpO2 95 % on nasal cannula at flow rate 2L/min Allergies: Allergies Allergen Reactions Amoxicillin Other (See [...] 650 mg 650 mg Oral Q4H PRN Haris Segal MD 650 mg at 01/19/20 0418 albumin 25% IVPB 12.5 g 12.5 g Intravenous PRN Darlin Moseley MD albuterol 90 mcg/puff inhaler 2 puff 2 puff Inhalation RT Q4H PRN Haris Segal MD amLODIPine (NORVASC) tablet 5 mg 5 mg Oral BID Haris Segal MD 5 mg at 01/19/20 0942 calcium acetate (PHOSLO) capsule 667 mg 667 mg Oral TID Darlin Moseley MD cefTRIAXone (ROCEPHIN) 2 g in sodium chloride 0.9% 50 mL IVPB 2 g Intravenous Daily Serina Segal MD 100 mL/hr at 01/19/20 1534 2 g at 01/19/20 1534 dextrose 50% injection 12.5-25 g 12.5-25 g Intravenous PRN Haris Segal MD And dextrose 10% (D10W) infusion Intravenous Continuous PRN Haris Segal MD epoetin karthik-epbx (RETACRIT) 10,000 units/mL injection 10,000 Units 10,000 Units Subcu taneous Once per day on Wed Darlin Moseley MD fentaNYL (PF) injection 25 mcg 25 mcg Intravenous Q3H PRN Haris Segal MD 25 mcg at 01/19/20 1223 furosemide (LASIX) tablet 160 mg 160 mg Oral BID Haris Segal MD 160 mg at 01/19/20 0942 heparin 1,000 units/mL injection 500 Units 500 Units Intravenous With each dialysis Je angelica Moseley MD 500 Units at 01/19/20 0812 heparin 5,000 units/mL injection 5,000 Units 5,000 Units Subcutaneous 2 times per day Haris Segal MD 5,000 Units at 01/18/20 2256 heparin in half-normal saline 100 units/mL infusion 200 Units/hr Intravenous Continu s Darlin Moseley MD 2 mL/hr at 01/19/20 0809 200 Units/hr at 01/19/20 0809 hydrALAZINE (APRESOLINE) injection 10 mg 10 mg Intravenous Q4H PRN Haris Segal MD 1 0 mg at 01/19/20 1141 insulin lispro (humaLOG KWIKPEN) injection (pen) 0-12 Units 0-12 Units Subcutaneous 4x Daily WC and HS Haris Segal MD 4 Units at 01/18/20 2251 labetalol (TRANDATE) 5 mg/mL injection 20 mg 20 mg Intravenous Q4H PRN Haris Segal MD 20 mg at 01/19/20 1214 levothyroxine (SYNTHROID) tablet 75 mcg 75 mcg Oral QAM AC Haris Segal MD 75 mcg at 01/19/20 0640 lidocaine (PF) 1% injection 1 mL 1 mL Intradermal Dialysis - PRN Darlin Moseley MD 1 mL at 01/19/20 0813 olopatadine (PATANOL) 0.1% ophthalmic solution 1-2 drop 1-2 drop Both Eyes BID Haris Segal MD 2 drop at 01/19/20 0823 pantoprazole (PROTONIX) DR tablet 40 mg 40 mg Oral QAM AC Haris Segal MD 40 mg at 0 01/19/20 0640 sodium chloride 0.9% (NS) infusion Intravenous Q30 Min PRN Darlin Moseley MD vancomycin per pharmacy Other Pharmacy Consult Haris Segal MD Current Infusions: dextrose 10% Heparin Infusion 200 Units/hr (01/19/20 0809) Point of care glucose Recent Labs Lab 01/19/20 1223 01/19/20 0636 01/18/20 2248 POCGLU 119* 73 261* Labs last 24 hours Recent Results (from the past 24 hour(s)) Coronavirus (COVID-19) NAAT Collection Time: 01/18/20 6:56 PM Result Value Ref Range SARS coronavirus 2 NAAT Not Detected Not Detected [facility] STAT instructions for COVID-19 tracking Collection Time: 01/18/20 6:56 PM Result Value Ref Range [facility] COVID STAT instruction Culture, MRSA Collection Time: 01/18/20 8:58 PM Result Value Ref Range Culture Negative for MRSA by chromogenic agar method. POC Glucose Collection Time: 01/18/20 10:48 PM Result Value Ref Range Glucose, POC 261 (H) 70 - 109 mg/dL Procalcitonin Collection Time: 01/19/20 4:10 AM Result Value Ref Range Procalcitonin 0.27 <=0.50 ng/mL Comment Basic Metabolic Panel Collection Time: 01/19/20 4:10 AM Result Value Ref Range Na 136 136 - 145 mmol/L K 5.3 (H) 3.4 - 5.1 mmol/L Cl 96 (L) 98 - 107 mmol/L CO2 31 20 - 31 mmol/L Anion Gap 9 3 - 16 mmol/L Glucose 84 60 - 106 mg/dL BUN 50 (H) 9 - 23 mg/dL Creatinine 5.04 (H) 0.55 - 1.02 mg/dL eGFR if not 8 (L) >=60 mL/min/1.73m2 Calcium 8.8 8.7 - 10.4 mg/dL BUN/Creatinine Ratio 9.9 Magnesium Collection Time: 01/19/20 4:10 AM Result Value Ref Range Magnesium 1.9 1.6 - 2.6 mg/dL Phosphorus Collection Time: 01/19/20 4:10 AM Result Value Ref Range Phosphorus 9.1 (HH) 2.4 - 5.1 mg/dL Iron and Transferrin Collection Time: 01/19/20 4:10 AM Result Value Ref Range Iron 21 (L) 50 - 170 ug/dL TRANSFERRIN 139.0 (L) 250.0 - 380.0 mg/dL TIBC 195 (L) 235 - 425 ug/dL % SATURATION 10.8 (L) 15.0 - 50.0 % Ferritin Collection Time: 01/19/20 4:10 AM Result Value Ref Range FERRITIN 1,216 (H) 7 - 271 ng/mL CBC no Differential Collection Time: 01/19/20 6:29 AM Result Value Ref Range WBC 7.9 4.0 - 11.0 K/uL RBC 3.11 (L) 3.70 - 5.20 M/uL Hemoglobin 8.4 (L) 11.5 - 16.0 g/dL Hematocrit 28.0 (L) 34.0 - 47.0 % MCV 90.0 83.0 - 101.0 fL MCH 27.0 (L) 28.0 - 35.0 pg MCHC 30.0 (L) 32.0 - 36.0 g/dL RDW-CV 17.3 (H) <15.0 % RDW-SD 56.3 (H) 35.1 - 46.3 fL Platelet Count 351 140 - 440 K/uL MPV 9.3 6.5 - 12.4 fL % nRBC 0 0 - 2 per 100 WBCs Absolute nRBC 0.00 0.00 - 0.01 K/uL Protime INR Collection Time: 01/19/20 6:29 AM Result Value Ref Range Prothrombin Time 16.8 (H) 11.3 - 13.9 seconds INR 1.3 (H) 0.9 - 1.1 POC Glucose Collection Time: 01/19/20 6:36 AM Result Value Ref Range Glucose, POC 73 70 - 109 mg/dL POC Glucose Collection Time: 01/19/20 12:23 PM Result Value Ref Range Glucose, POC 119 (H) 70 - 109 mg/dL Micro results (more choices using dot micro) Microbiology Results (72 hrs) Procedure Component Value Units Date/Time Culture, MRSA [[id number]] (Normal) Collected: 01/18/202057 Order Status: Completed Lab Status: Final result Updated: 01/19/20 1246 Specimen: Tissue from Nares Culture Negative for MRSA by chromogenic agar method. Coronavirus (COVID-19) NAAT [[id number]] (Normal) Collected: 01/18/201855 Order Status: Completed Lab Status: Final result Updated: 01/19/20 1349 Specimen: Tissue from Nasopharynx SARS coronavirus 2 NAAT Not Detected Narrative: See Scanned Report [facility] STAT instructions for COVID-19 tracking [[id number]] Collected: 01/18/201855 Order Status: Completed Lab Status: Final result Updated: 01/19/20 1359 Specimen: Tissue from Nasopharynx [facility] COVID STAT instruction -- Radiology results (more choices using dot risresults) Ct Chest Wo Contrast Result Date: 01/18/2020 CT CHEST WO CONTRAST 01/18/2020 5:36 PM HISTORY: Chest pain or SOB, pleurisy or effusion susp ected left sided empyema. COMPARISON: 10/30/2019 PROTOCOL: Axial images of the chest were obt ained. Coronal and sagittal reformations were acquired. FINDINGS: Scattered diffuse intersti tial thickening. Mosaic attenuation ground glass pattern throughout both lungs. Trachea and central bronchi are generally patent. There are a few areas of questionable mild endobronchi al debris and diffuse endobronchial opacification in the left lower lobe; however, this is s ignificantly improved since prior CT. Extensive consolidation of the left upper and lower lo bes. New patchy groundglass opacities throughout the right lung. Small right pleural effusio n. Similar moderate likely loculated left pleural effusion. Heart is enlarged. Severe mckeon ry artery calcifications. Mitral annular calcification. Multiple enlarged mediastinal lymph nodes. Right breast skin thickening is unchanged. Evidence of prior left mastectomy. Likely diffuse anasarca. Extensive aortic calcifications. Likely severe stenosis of the origin of t he left subclavian artery. Fusiform enlargement of the pulmonary arteries measure 4.0 cm. Mi ld sliding-type hiatal hernia. Multiple bilateral rib fracture deformities. Interval likely worsening acute on chronic discitis/osteomyelitis at T11-T12. Cardiomegaly, pulmonary artery enlargement/hypertension, and evidence of pulmonary edema wi th small pleural effusions. Loculated left pleural effusion in this patient with history of empyema with extensive consolidation/pneumonia throughout the left lung. Enlarged mediastina l lymph nodes likely are reactive. Interval likely worsening acute on chronic discitis/osteo myelitis at T11-T12. Dictated and Signed by: Itz Madsen MD Electronically signed: 020 6:04 PM Xr Chest Ap Portable Result Date: 01/18/2020 XR CHEST AP PORTABLE 01/18/2020 4:06 PM HISTORY: LEG PAIN. COMPARISON: 10/30/2019 Findings: Co nsolidation throughout the left lung with only minimal aeration. Patchy opacification involv ing the right perihilar soft tissues with diffuse interstitial thickening. Linear airspace d isease in the right midlung. No evidence of pneumothorax. Aortic likely large left pleural e ffusion calcifications are seen. Heart is enlarged. No acute osseous findings identified. Pleural effusion, atelectasis/consolidation throughout the left lung is slightly improved w hen compared to 10/30/2019 but remains severe. Slightly worsened right perihilar interstitial thickening and a small amount of fluid or atelectasis along the right major fissure. Dictat ed and Signed by: Itz Madsen MD Electronically signed: 01/18/2020 5:34 PM Vas Lower Extremity Venous Left Result Date: 01/18/2020 VAS LOWER EXTREMITY VENOUS LEFT 01/18/2020 4:04 PM HISTORY: left leg swelling and edema asymm etric compared to the right. COMPARISON: 10/02/2017 PROTOCOL: Choi scale and Doppler images o f the lower extremity veins. FINDINGS: The left common femoral, profunda femoral, superficia l femoral, and popliteal veins demonstrate normal flow, augmentation, and compression. Echog enic and chronic appearing peripheral calcification/thrombus is noted in the proximal left g reater saphenous vein. No evidence for DVT. Echogenic and chronic appearing calcification/thrombus is noted in the left greater saphenous vein. Diffuse subcutaneous edema is noted throughout the left medial calf soft tissues. Dictated and Signed by: Itz Madsen MD Electronically signed: 01/18/20 5:[address] Lower Extremity Left Wo Contrast Result Date: 01/18/2020 CT LOWER EXTREMITY LEFT WO CONTRAST 01/18/2020 9:20 PM HISTORY: Lower leg swelling/redness, c ellulitis suspected left medial calf dry ulcer, painful, eval nec fasc osteomyelitis. COMPAR JARRET: 01/18/2020 PROCEDURE: Thin cut axial slice CT imaging was performed. The left lower ext remity at the level of the femur through the mid foot. Intravenous contrast was not administ ered. FINDINGS: Extensive subcutaneous edema/anasarca throughout all visualized soft tissues , compatible with fluid overload when coupled with partial visualization of the right lower extremity as well as CT chest findings from same day. Widespread cellulitis cannot be entire ly excluded but thought less likely. No subcutaneous emphysema to suggest necrotizing fascii tis at this time. Extensive circumferential calcified plaque is seen throughout all vascular structures with likely multiple areas of severe stenosis. Diffuse fatty atrophy throughout the visualized bilateral lower extremity musculature. No suspicious lymphadenopathy identifi ed. Small left knee joint effusion. No fluid collection to suggest abscess at this time. Sev ere intertarsal and tarsometatarsal joint degenerative changes and prominent subchondral cys tic changes. Diffuse osteopenia. Extensive subcutaneous edema/anasarca throughout all visualized soft tissues, compatible wi th fluid overload when coupled with partial visualization of the right lower extremity as we ll as CT chest findings from same day. No subcutaneous emphysema to suggest necrotizing fas ciitis at this time. No fluid collection to suggest abscess at this time. Dictated and Pamela d by: Itz Madsen MD Electronically signed: 01/18/2020 9:55 PM Kd Felix MD Portions of this chart may have been created with [employer] voice recognition software. Occasi onal wrong-word or sound-alike substitutions may have occurred due to the inherent mckeon itations of voice recognition software. Please read the chart carefully and recognize, using context, where these substitutions have occurred Neelima Workman, Pharm D - 01/19/2020 11:46 AM PDT VANCOMYCIN PER PHARMACY PROTOCOL: AMS/Drug Name - Vancomycin Patient: Estefani Jimenez Jarek [id number] Admit: 01/18/2020 3:04 PM RELEVANT ALLERGIES: amoxicillin (can't tolerate amoxicillin, hard on her stomach) 74 yrs old female patient admitted on 01/18/2020 for chf exacerbation. Patient is receiving vancomycin starting on 01/18/20 for SSTI abscess- left leg ulcer cellulitis with recurrent Tsp ine discitis/osteomyelitis. Patient has a past medical history of Anemia, Arthritis, Back p ain, Breast cancer ([facility]), Cancer ([facility]), Diabetes ([facility]), Heart disease, Hemodialysis patient ([facility]), History of blood clots, Hypercholesteremia, Hypertension, Hypothyroidism, Renal failu re, Seasonal allergies, and Stroke (cerebrum) ([facility]). . Risk factors for MDR organisms includ e recent healthcare contact. HPI: presents to ER with hypoxia and shortness of breath. She c/o left leg wound and pain w ith ambulation. Left leg medial ulcer started after she was transferred from to [place] Oct 2019. Pt had a prolonged hospitalization at [facility] in [place] for left l terrie empyema. Pt was transferred to [facility] on 10/31/2019, and underwent VATS on 10/31/2019. Pt w as discharged on 11/17/2019 to a local SNF in [place]. She was discharged from [facility] 2 days prior to admit and transported to by son. Antimicrobials - Current Antibiotic Dates of Therapy Vancomycin 01/17- Ceftriaxone 01/17- Antimicrobials - Discontinued Antibiotic Dates of Therapy Historical Vancomycin dosing (previous & current encounter): 2019: Vanc 1 g (03/24), 1250 mg (03/23-03/24), 500 mg (03/31), 750 mg (03/27-03/29), Vanco 1250 mg (05/24), 500 mg (05/25). 2020: vanco 1500 mg (10/30) Micro/Cultures/Diagnostics: Microbiology Results (Last 14 Days by Collected Date with Culture/Sensitivity) Procedure Component Value Units Date/Time Culture, MRSA [[id number]] Collected: 01/18/202057 Order Status: Sent Lab Status: In process Updated: 01/18/202124 Specimen: Tissue from Nares [facility] STAT instructions for COVID-19 tracking [[id number]] Order Status: Canceled Lab Status: No result Specimen: Tissue from Nasopharynx Coronavirus (COVID-19) NAAT [[id number]] Collected: 01/18/201855 Order Status: Sent Lab Status: In process Updated: 01/19/20757 Specimen: Tissue from Nasopharynx [facility] STAT instructions for COVID-19 tracking [[id number]] Collected: 01/18/201855 Order Status: Sent Lab Status: In process Updated: 01/19/20757 Specimen: Tissue from Nasopharynx Relevant cultures from previous admits: Date Source Organisms Sensitivities 10/30/19 Body fluid, pleural fluid left 1. Strep infantarius 2. Strep pasteurianus 1. R: clinda, erythro, tetra 2. R: same 11/02/17 Urine Ecoli R: amp, unasyn, cefazolin, zosyn 11/02 Blood (2/4 bottles) S. bovis R: tetracycline Admission Wt: Weight: 74.8 kg (165 lb) Current Wt: Weight: 74.8 kg (165 lb) Min/Max Temp past 24 hours:Temp Av.6 C (97.9 F) Min: 36.2 C (97.2 F) Max: 3 7 C (98.6 F) Estimated Creatinine Clearance: 10 mL/min (A) (based on SCr of 5.04 mg/dL (H)). Intake/Output Summary (Last 24 hours) at 01/19/2020 1146 Last data filed at 01/19/2020 1100 Gross per 24 hour Intake Output 1305 ml Net -1305 ml Temp: [36.2 C (97.2 F)-37 C (98.6 F)] 36.2 C (97.2 F) Pulse: [66-77] 68 Resp: [15-24] 18 BP: (142-180)/(57-89) 180/88 Recent Labs Lab 01/19/20 0629 01/19/20 0410 01/18/20 1552 01/18/20 1551 WBC 7.9 -- 7.4 -- CREA -- 5.04* -- 4.69* PROCALCITONI -- 0.27 -- -- CRP -- -- -- 68.50* ESR -- -- 78* -- Imagin/7 CXR: Pleural effusion, atelectasis/consolidation throughout the left lung is slightly i mproved when compared to 10/30/2019 but remains severe. Slightly worsened right perihilar int erstitial thickening and a small amount of fluid or atelectasis along the right major fissur e. 01/17 VAS lower extremity left: No evidence for DVT. Echogenic and chronic appearing calcific ation/thrombus is noted in the left greater saphenous vein. Diffuse subcutaneous edema is no rich throughout the left medial calf soft Tissues. 01/17 CT Chest: Cardiomegaly, pulmonary artery enlargement/hypertension, and evidence of pulm onary edema with small pleural effusions. Loculated left pleural effusion in this patient wi th history of empyema with extensive consolidation/pneumonia throughout the left lung. Enlar ged mediastinal lymph nodes likely are reactive. Interval likely worsening acute on chronic discitis/osteomyelitis at T11-T12. 01/17 CT lower extremity left: Extensive subcutaneous edema/anasarca throughout all visualize d soft tissues, compatible with fluid overload when coupled with partial visualization of th e right lower extremity as well as CT chest findings from same day. No subcutaneous emphyse ma to suggest necrotizing fasciitis at this time. No fluid collection to suggest abscess at this time. 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 If post-hemodialysis (4-6 hrs after completiong of HD) vancomycin concentration is: - >20 mcg/mL: hold post-HD dose - 10-20 mcg/mL: 500 mg after HD - <10 mcg/mL: 750-1000 mg after HD Plan: 1. Vancomycin post-HD level ordered @ 1900 2. Dose to be determined with post-HD level 3. Next Dialysis scheduled for pending 4. Pharmacy to monitor daily and adjust dosage per protocol References: Vancomycin dosing protocol IDSA guidelines Pharmacist-Driven Procalcitonin Protocol Per P&T-approved Vancomycin Dosing and Monitoring Protocol Electronically signed by: Neelima Wang PharmD 01/19/2020 11:46 AM Danyelle Lowery Chaplain - 01/18/2020 3:09 PM PDTVisit is response to request for communication guidance: Person bringing patient to [facility]: Azael Ocasio is patient son, and reported POA but we don't have the paperwork on file at this time. Azael reported that Estefani is part of the [place], two days ago she was r eleased from [facility], [facility]. He noticed cordova on her legs and her complaint s of leg pain and the pain has gotten worse where it is hard for her to walk. She was on Ox ygen while at the [facility]. Follow Up: Azael plans to return home and find POA documentation. Chaplains will continue to provide communication, emotional and spiritual support. documented in this encounter H&P Notes Haris Segal MD - 01/18/2020 6:23 PM PDTFormatting of this note might be different from t he original. [facility] HOSPITALIST HISTORY & PHYSICAL Patient: Estefani Tilley : 1945: Age: 74 y.o. MedRec: [id number] Admission date: 01/18/2020 Hospital day # : 0 Physician author: Haris Segal MD Today: 01/18/2020 ASSESSMENT Active Problem, present on admission: Active Hospital Problems Diagnosis Cellulitis of left lower extremity Poor historian Pulmonary hypertension, mild GERD (gastroesophageal reflux disease) ESRD (end stage renal disease) on dialysis Diabetes mellitus type II, non insulin dependent - DIET Control HTN (hypertension) Hypothyroidism Resolved Hospital Problems No resolved problems to display. PLAN Left leg ulcer cellulitis with recurrent Tspine discitis/osteomyelitis Recurrent cellulitis hx, recent empyema CT leg without evidence of necrotizing fasciitis/abscess Esr 78 (range 48-90) / crp 68 (range 1-51) rocephine/vanco Acute hypoxia respiratory failure 2L O2 pulm hypertension, recent empyema, CHF exacerbation Follow COVID / MRSA Albuterol PRN, CPAP-BIPAP PRN Antibiotics as above ESRD ANURIC Dry weight 72 kg, current 74.8 DiabeticGlomeruloSclerosis, anemia, hyperparathyroidism mwf hx of partial HD compliance AVF Right Appreciate Dr Moseley dCHF exacerbation / diffuse anasarca Recurrent Left pleural effusion BNP > 5000 03/2019 EF 60% HTN dyslipidemia continue Statin Hx noncompliance w/ labetolol /losartan /clonidine /amlodipine Resume amlodipine/lasix for now Chronic left greater saphenous vein Unlikely to embolize based on chronic appearance 1cm from saphenous femoral junction, 1 cm in length UTD - Consider ac for 45 days GERD PPI DM2 SSI moderate Hypothyroid/depressed synthroid overall Poor prognosis Nonadherence Baseline ambulates by holding onto wall/furniture DVT Prophylaxis Heparin Diet renal Code Status full Disposition panchal CHIEF COMPLAINT: Left leg wound/pain poor historian HISTORY OF PRESENT ILLNESS: Estefani Tilley is a 74 y.o. female with a history of noncompliance/ESRD partial HD compl iance/empyema, presented on 01/18/2020, discharged from [facility] 2 days ago, driven in by son, c/o left leg wound and pain w/ ambulation, left Leg medial ulcer started a fter she was transferred from [place] 10/2019 to [place] for empyema management. Painful to ambulate on. On 10/30/2019, with loculated empyema/influenza A, she was transferred from [place] ED t o [place], found to have strep bovis empyema and significant intra op mucus plugging S/p V ATS decortication pleurectomy 10/30 and 10/31, s/p bronchoscopy clear 10/31, s/p intubated for 3 days then tolerated CPAP; vanco/rocephine/flagyl/tamiflu initially, then PCN, then 11/06/19 20 ID considered strep bovis seeding of transudative effusion from CHF exacerbation 09/2019 a nd nonadherence to HD, recommended 3 week course of ancef/keflex until 11/15/2019. Also colono scopy Vs CT A/P was recommended due to correlation w/ colon cancer. AVF was revascularized 11/15/2019. She was discharged to SNF in [place] 11/17/2019 (16mi from [place]). She was on oxygen while at SNF per son. She indicated to CM that she did not go to HD for s everal days but indicated during hospitalist evaluation that she went a day or 2 ago. Reheat Furnace Operator/CM spoke with son who indicated leg pain, that she had been on O2 at SNF ED course: 83% RA -Treatment: fent / rocephine / vanco Relevant Chart Review 05/2019 CHF exacerbation, left pl effusion, T spine osteomyelitis - ID recommended to Dr Chavira no further abx an CT guided vertebral bx. 03/2019 [facility] t10-T11 osteomyelitis/discitis s/p cefepime vanco for 6 weeks REVIEW OF SYSTEMS: Uncooperative, begins all answers w/ "oh my god." PHYSICAL EXAMINATION: On room air Constitutional NAD / sitting upright, fatigued appearance, poor historian - uncooperative w/ verbal responses Eye PERRL / EOMI / No scleral icterus, no injected eyes ENT hearing intact / no sinus congestion / NO THRUSH Neck supple Lymph node No overt lymphadenopathy Cardiac S1 S2 present / RRR / no MRG Lung Auscultation CTAB diminished / no RRW / Respiratory effort not labored/using accessory muscles speaking in full sentences without difficulty Abdomen active BS, Soft, NT / ND, no overt hernias Psych Mood and affect normal, alert and oriented Neuro Moves all extremities, symmetrical face, no dysarthria Extremities mild bilateral arvizu edema, left medial calf dry ulcer 4cm w/ surrounding locali zed erythema, tender to light palpation Skin No overt rash / no jaundice / NO INTERTRIGO Right AV fistula VITAL SIGNS: Temp: 37 C (98.6 F), Pulse: 75, Resp: 20, BP: 171/80, SpO2 99 % on nasal cannula at imtiaz w rate 2L/min Temp Min: 37 C (98.6 F) Max: 37 C (98.6 F) Weight: 74.8 kg (165 lb) PAST MEDICAL and SURGICAL HISTORY: Past Medical History: Diagnosis Date Anemia Arthritis Back pain Breast cancer (HCC) s/p left mastectomy in 2004, s/p chemotherapy Cancer (HCC) Diabetes (HCC) Heart disease Hemodialysis patient (HCC) mon-wed-wed History of blood clots Hypercholesteremia Hypertension Hypothyroidism Renal failure Seasonal allergies Stroke (cerebrum) ([facility]) Past Surgical History: Procedure Laterality Date APPENDECTOMY EYE SURGERY 2009 HIP SURGERY Right 12/04/2018 Procedure: ORIF HIP W/CANNULATED SCREWS; Surgeon: Scott Koroma MD; Location: [facility] MAIN OR HYSTERECTOMY MASTECTOMY 2006 left ear NOSE SURGERY 2009 OTHER SURGICAL HISTORY Right 03/28/2019 Procedure: TUNNEL PICC LINE PLACEMENT-6fr 22cm BARD Power Line; Surgeon: Jose Jiménez MD; Location: [facility] INTERVENTIONAL RADIOLOGY REMOVAL TUNNELED CATHETER Right 04/04/[address] Stephenson SHUNT PLACEMENT/INSERTION N/A 11/08/2017 Procedure: Tunneled Hemodialysis Catheter Placement; Surgeon: Nora Leo MD; Location : [facility] MAIN OR SHUNT PLACEMENT/INSERTION Right 02/04/2018 Procedure: INSERTION SHUNT HEMODIALYSIS W/ PERMACATH; Surgeon: Heather Navarro MD; L ocation: [facility] MAIN OR VEIN SURGERY Right 01/04/2018 Procedure: Right Transposed Basilic Vein to Proximal Radial Artery; Surgeon: Santos Stephenson MD, FACS; Location: [facility] MAIN OR Patient Active Problem List Diagnosis Anemia Arthritis Back pain History of blood clots Cancer Heart disease HTN (hypertension) Seasonal allergies Diabetes mellitus type II, non insulin dependent - DIET Control Hyperlipidemia Depression 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 Facial cellulitis Hypothyroidism 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 Orbital cellulitis on left DJD (degenerative joint disease) Other chronic pain Other orbital disorder Other, mixed, or unspecified nondependent drug abuse, unspecified Cerebral artery occlusion with cerebral infarction Marijuana use Poor historian Chronic renal insufficiency, stage IV (severe) ESRD (end stage renal disease) on dialysis Closed right hip fracture Non-compliance Closed fracture of neck of right femur probable Discitis of thoracic region Hypoxia Osteomyelitis of thoracic region Fluid overload Pleural effusion, left Influenza A GERD (gastroesophageal reflux disease) RBBB (right bundle branch block) Pulmonary hypertension, mild HOME MEDICATIONS: PT REPORTED TAKING NOT TAKING [...] Inject 4,000 Units into the vein Three dutch es a week. Historical Provider, furosemide (LASIX) 80 [...] 8 hours as needed. 20 tablet Gopi Muñoz DO ALLERGIES: SOCIAL HISTORY: FAMILY HISTORY: Allergies Allergen [...] sister; Diabetes in some other family members. DIAGNOSTIC STUDIES: Lab results last 24 hours Recent Results (from the past 24 hour(s)) ECG 12 lead Collection Time: 01/18/20 3:44 PM Result Value Ref Range INTERPRETATION TEXT Not Confirmed Comprehensive Metabolic Panel Collection Time: 01/18/20 3:51 PM Result Value Ref Range Na 135 (L) 136 - 145 mmol/L K 5.5 (H) 3.4 - 5.1 mmol/L Cl 94 (L) 98 - 107 mmol/L CO2 31 20 - 31 mmol/L Anion Gap 10 3 - 16 mmol/L Glucose 195 (H) 60 - 106 mg/dL BUN 46 (H) 9 - 23 mg/dL Creatinine 4.69 (H) 0.55 - 1.02 mg/dL eGFR if not 9 (L) >=60 mL/min/1.73m2 Calcium 8.8 8.7 - 10.4 mg/dL Albumin 3.4 3.2 - 4.8 g/dL Bilirubin Total 0.2 (L) 0.3 - 1.2 mg/dL Total Protein 8.2 5.7 - 8.2 g/dL AST 42 (H) 0 - 34 U/L ALT 25 10 - 49 U/L Alkaline Phosphatase 108 46 - 116 U/L Globulin 4.8 (H) 2.1 - 3.8 g/dL Albumin/Globulin Ratio 0.7 (L) 0.8 - 1.9 BUN/Creatinine Ratio 9.8 Protime INR Collection Time: 01/18/20 3:51 PM Result Value Ref Range Prothrombin Time 16.3 (H) 11.3 - 13.9 seconds INR 1.2 (H) 0.9 - 1.1 PTT Collection Time: 01/18/20 3:51 PM Result Value Ref Range aPTT 36 22 - 36 seconds B Type Natriuretic Peptide Collection Time: 01/18/20 3:52 PM Result Value Ref Range BNP >5,000 (H) <100 pg/mL CBC with Differential Collection Time: 01/18/20 3:52 PM Result Value Ref Range WBC 7.4 4.0 - 11.0 K/uL RBC 2.97 (L) 3.70 - 5.20 M/uL Hemoglobin 8.2 (L) 11.5 - 16.0 g/dL Hematocrit 26.8 (L) 34.0 - 47.0 % MCV 90.2 83.0 - 101.0 fL MCH 27.6 (L) 28.0 - 35.0 pg MCHC 30.6 (L) 32.0 - 36.0 g/dL RDW-CV 17.3 (H) <15.0 % RDW-SD 57.3 (H) 35.1 - 46.3 fL Platelet Count 369 140 - 440 K/uL MPV 9.6 6.5 - 12.4 fL % Neutrophils 75.1 45.0 - 82.0 % % Lymphocytes 17.7 (L) 20.0 - 45.0 % % Monocytes 4.8 4.0 - 12.0 % % Eosinophils 1.2 0.0 - 5.0 % % Basophils 0.8 0.0 - 1.0 % % Immature Granulocytes 0.4 0.0 - 0.4 % Absolute Neutrophils 5.52 1.80 - 8.50 K/uL Absolute Lymphocytes 1.30 0.60 - 3.20 K/uL Absolute Monocytes 0.35 0.00 - 1.00 K/uL Absolute Eosinophils 0.09 0.00 - 0.40 K/uL Absolute Basophils 0.06 0.00 - 0.10 K/uL Absolute Immature Granulocytes 0.03 0.00 - 0.03 K/uL % nRBC 0 0 - 2 per 100 WBCs Absolute nRBC 0.02 (H) 0.00 - 0.01 K/uL Troponin I Collection Time: 01/18/20 3:52 PM Result Value Ref Range Troponin I 0.20 (H) <0.06 ng/mL Micro results Microbiology Results (72 hrs) No results found for the last [address] Chest Wo Contrast Result Date: 01/18/2020 CT CHEST WO CONTRAST 01/18/2020 5:36 PM HISTORY: Chest pain or SOB, pleurisy or effusion susp ected left sided empyema. COMPARISON: 10/30/2019 PROTOCOL: Axial images of the chest were obt ained. Coronal and sagittal reformations were acquired. FINDINGS: Scattered diffuse intersti tial thickening. Mosaic attenuation ground glass pattern throughout both lungs. Trachea and central bronchi are generally patent. There are a few areas of questionable mild endobronchi al debris and diffuse endobronchial opacification in the left lower lobe; however, this is s ignificantly improved since prior CT. Extensive consolidation of the left upper and lower lo bes. New patchy groundglass opacities throughout the right lung. Small right pleural effusio n. Similar moderate likely loculated left pleural effusion. Heart is enlarged. Severe mckeon ry artery calcifications. Mitral annular calcification. Multiple enlarged mediastinal lymph nodes. Right breast skin thickening is unchanged. Evidence of prior left mastectomy. Likely diffuse anasarca. Extensive aortic calcifications. Likely severe stenosis of the origin of t he left subclavian artery. Fusiform enlargement of the pulmonary arteries measure 4.0 cm. Mi ld sliding-type hiatal hernia. Multiple bilateral rib fracture deformities. Interval likely worsening acute on chronic discitis/osteomyelitis at T11-T12. Cardiomegaly, pulmonary artery enlargement/hypertension, and evidence of pulmonary edema wi th small pleural effusions. Loculated left pleural effusion in this patient with history of empyema with extensive consolidation/pneumonia throughout the left lung. Enlarged mediastina l lymph nodes likely are reactive. Interval likely worsening acute on chronic discitis/osteo myelitis at T11-T12. Dictated and Signed by: Itz Madsen MD Electronically signed: 020 6:04 PM Xr Chest Ap Portable Result Date: 01/18/2020 XR CHEST AP PORTABLE 01/18/2020 4:06 PM HISTORY: LEG PAIN. COMPARISON: 10/30/2019 Findings: Co nsolidation throughout the left lung with only minimal aeration. Patchy opacification involv ing the right perihilar soft tissues with diffuse interstitial thickening. Linear airspace d isease in the right midlung. No evidence of pneumothorax. Aortic likely large left pleural e ffusion calcifications are seen. Heart is enlarged. No acute osseous findings identified. Pleural effusion, atelectasis/consolidation throughout the left lung is slightly improved w hen compared to 10/30/2019 but remains severe. Slightly worsened right perihilar interstitial thickening and a small amount of fluid or atelectasis along the right major fissure. Dictat ed and Signed by: Itz Madsen MD Electronically signed: 01/18/2020 5:34 PM Vas Lower Extremity Venous Left Result Date: 01/18/2020 VAS LOWER EXTREMITY VENOUS LEFT 01/18/2020 4:04 PM HISTORY: left leg swelling and edema asymm etric compared to the right. COMPARISON: 10/02/2017 PROTOCOL: Choi scale and Doppler images o f the lower extremity veins. FINDINGS: The left common femoral, profunda femoral, superficia l femoral, and popliteal veins demonstrate normal flow, augmentation, and compression. Echog enic and chronic appearing peripheral calcification/thrombus is noted in the proximal left g reater saphenous vein. No evidence for DVT. Echogenic and chronic appearing calcification/thrombus is noted in the left greater saphenous vein. Diffuse subcutaneous edema is noted throughout the left medial calf soft tissues. Dictated and Signed by: Itz Madsen MD Electronically signed: 01/18/20 5:[address] Lower Extremity Left Wo Contrast Result Date: 01/18/2020 CT LOWER EXTREMITY LEFT WO CONTRAST 01/18/2020 9:20 PM HISTORY: Lower leg swelling/redness, c ellulitis suspected left medial calf dry ulcer, painful, eval nec fasc osteomyelitis. COMPAR JARRET: 01/18/2020 PROCEDURE: Thin cut axial slice CT imaging was performed. The left lower ext remity at the level of the femur through the mid foot. Intravenous contrast was not administ ered. FINDINGS: Extensive subcutaneous edema/anasarca throughout all visualized soft tissues , compatible with fluid overload when coupled with partial visualization of the right lower extremity as well as CT chest findings from same day. Widespread cellulitis cannot be entire ly excluded but thought less likely. No subcutaneous emphysema to suggest necrotizing fascii tis at this time. Extensive circumferential calcified plaque is seen throughout all vascular structures with likely multiple areas of severe stenosis. Diffuse fatty atrophy throughout the visualized bilateral lower extremity musculature. No suspicious lymphadenopathy identifi ed. Small left knee joint effusion. No fluid collection to suggest abscess at this time. Sev ere intertarsal and tarsometatarsal joint degenerative changes and prominent subchondral cys tic changes. Diffuse osteopenia. Extensive subcutaneous edema/anasarca throughout all visualized soft tissues, compatible wi th fluid overload when coupled with partial visualization of the right lower extremity as we ll as CT chest findings from same day. No subcutaneous emphysema to suggest necrotizing fas ciitis at this time. No fluid collection to suggest abscess at this time. Dictated and Pamela d by: Itz Madsen MD Electronically signed: 01/18/2020 9:55 PM Electronically signed by: Haris Segal MD 01/18/2020 6:[address] [facility] initial inpatient hospital time exceeds 70 minutes with 1/2 spent on face to face time for assessment and plan and coordinating care -Medical Decision Maker Patient. Assessment and Plan were discussed with patient -[facility] Documentation I expect this patient will be hospitalized for 2 or more days and expect the post-hospital plan to be home. -I reviewed relevant imaging, EKG and old records. documented in this enc nter Consult Notes Darlin Moseley MD - 01/19/2020 10:43 AM PDTFormatting of this note might be different f rom the original. [facility] NEPHROLOGY CONSULTATION Patient: Estefani Tilley : 1945 DATE OF CONSULTATION: 01/19/2020 REASON FOR CONSULTATION: End-stage renal disease, on hemodialysis REFERRING PHYSICIAN: Dr. Haris Segal MD PRIMARY CARE PHYSICIAN: Dr. Renato Pierson, DIPESH ASSESMENT AND PLAN 1. ESRD on hemodialysis since Oct 2017. Access: Right upper arm AV fistula in place. Pt had been dialyzing in [place], last treatment on 01/16/2020. Hyperkalemia, hypervolemia. -HD t=5 hr, 2K, BFR 300 mL/min, DFR 7 L/hr, UF goal 2.5-3 Liters. -Will need to arrange for outpatient HD in the area, if pt plans to stay in the area. Will d/w case sealer. Pt is on the waitlist for [facility] [place] (#3 on waitlist per clinic segundo adamson). 2. Hypertension, uncontrolled. Non-compliant with medications. -On amlodipine 5 mg BID, furosemide 160 mg BID. -UF goal 2.5-3 Liters. 3. Anemia, due to ESRD. -Will check iron stores. -Start Epogen 10,000 Units TIW. 4. Left lower leg wound. -Per hospitalist. HPI Estefani Tilley is a 74 y.o. female with ESRD due to diabetic kidney disease, type 2 DM, hypertension, chronic discitis/osteomyelitis at T11-T12, who presented to ER yesterday with hypoxia and shortness of breath. On note, pt had a prolonged hospitalization at [facility] in [place] f or left lung empyema. Pt was transferred to [facility] on 10/31/2019, and underwent VATS on 020. Her culture grew Streptococcus bovis. During her hospitalization, pt was seen by emily lu nephrology, infectious disease, CT surgery, pulmonary, and vascular surgery. Pt was d ischarged on 11/17/2019 to a local SNF in [place]. Pt is unable to say when she was last dialyzed. Per Care Everywhere records, pt dialyzed o n 01/16/2020 at [facility]. Her post-weight was 74.5 kg. Pt reports shortness of breath, but denies cough. Pt denies chest pain, abdominal pain, na usea, vomiting. Pt reports a non-healing wound in her left lower leg; pt reports it has be there since Oct 2019. Pt is on the waitlist (#3) for [facility] Dialysis clinic. Pt states she is living in a usp in [place]. Pt states the address is in her recor ds. REVIEW OF SYSTEMS 10-ROS obtained per HPI otherwise negative PAST MEDICAL HISTORY Past Medical History: Diagnosis [...] Surgeon: Scott Koroma MD; Location: [facility] MAIN OR HYSTERECTOMY MASTECTOMY 2006 left ear NOSE SURGERY 2009 OTHER SURGICAL HISTORY Right 03/28/2019 Procedure: TUNNEL PICC LINE PLACEMENT-6fr 22cm BARD Power Line; Surgeon: Jose Jiménez MD; Location: [facility] INTERVENTIONAL RADIOLOGY REMOVAL TUNNELED CATHETER Right 04/04/[address] Stephenson SHUNT PLACEMENT/INSERTION N/A 11/08/2017 Procedure: Tunneled Hemodialysis Catheter Placement; Surgeon: Nora Leo MD; Location : [facility] MAIN OR SHUNT PLACEMENT/INSERTION Right 02/04/2018 Procedure: INSERTION SHUNT HEMODIALYSIS W/ PERMACATH; Surgeon: Heather Navarro MD; L ocation: [facility] MAIN OR VEIN SURGERY Right 01/04/2018 Procedure: Right Transposed Basilic Vein to Proximal Radial Artery; Surgeon: Santos Stephenson MD, FACS; Location: [facility] MAIN OR FAMILY HISTORY Family History Problem Relation Age of Onset Diabetes Other grandfather Diabetes Other grandmother Cancer Sister SOCIAL HISTORY Social History Socioeconomic History Marital status: Single Spouse name: Not on file Number of children: Not on file Years of education: Not on file Highest education level: Not on file Occupational History Not on file Social Needs Financial resource strain: Not on file Food insecurity: Worry: Not on file Inability: Not on file Transportation needs: Medical: Not on file Non-medical: Not on file Tobacco Use Smoking status: Current Every Day Smoker Smokeless tobacco: Never Used Substance and Sexual Activity Alcohol use: No Alcohol/week: 0.0 standard drinks Drug use: No Sexual activity: Not on file Lifestyle Physical activity: Days per week: Not on file Minutes per session: Not on file Stress: Not on file Relationships Social connections: Talks on phone: Not on file Gets together: Not on file Attends voodoo service: Not on file Active member of club or organization: Not on file Attends meetings of clubs or organizations: Not on file Relationship status: Not on file Intimate partner violence: Fear of current or ex partner: Not on file Emotionally abused: Not on file Physically abused: Not on file Forced sexual activity: Not on file Other Topics Concern Not on file Social History Narrative Not on file ALLERGIES Allergies Allergen Reactions Amoxicillin Other (See Comments) Patient stated she can't tolerate amoxicillin and stated its hard on her stomach. Lisinopril Pt states she does not remember what was the reaction she had to lisinopril. I asked her if it gave her a cough and she said "I cant remember, maybe it made me sick to my stomach". Naprosyn [Naproxen] CURRENT MEDICATIONS Scheduled Meds: amLODIPine 5 mg Oral BID calcium acetate 667 mg Oral TID WC cefTRIAXone 2 g Intravenous Daily epoetin karthik-epbx 10,000 Units Subcutaneous Once per day on Wed furosemide 160 mg Oral BID heparin 500 Units Intravenous With each dialysis heparin 5,000 Units Subcutaneous 2 times per day insulin lispro 0-12 Units Subcutaneous 4x Daily WC and HS levothyroxine 75 mcg Oral QAM AC olopatadine 1-2 drop Both Eyes BID pantoprazole 40 mg Oral QAM AC vancomycin per pharmacy Other Pharmacy Consult Continuous Infusions: dextrose 10% Heparin Infusion 200 Units/hr (01/19/20 0809) PRN Meds:acetaminophen, albumin, albuterol, Hypoglycemia Management AND POCT Glucose * *AND dextrose AND dextrose 10%, fentaNYL (PF), hydrALAZINE, labetalol, lidocaine (PF), sodium chloride 0.9% OBJECTIVE VITAL SIGNS: Vital sign ranges for last 24hrs: Input and output for last 24hrs: Temp: [36.2 C (97.2 F)-37 C (98.6 F)] 36.2 C (97.2 F) Pulse: [66-77] 68 Resp: [15-24] 18 BP: (142-180)/(57-89) 180/89 SpO2 Av.5 % Min: 83 % Max: 100 % Flow (L/min) Av Min: 2 Max: 2 First: 74.8 kg (01/18/201510)Last: 74.8 kg (01/18/201510)Difference: 0kg 01/17 701 - 699 In: - Out: 150 [Urine:150] General: In no acute distress Cardiac: Regular rate and rhythm, normal S1 and S2. 2+ pitting LE peripheral edema. Chest: Normal respiratory effort. Bilateral crackles. Abdomen: Soft, non-distended, non-tender, normal bowel sounds. Msk: Normal muscle tone. Skin: Open wound in the left medial lower leg with warmth and erythema. Neuro: Alert, interactive. Psych: Flat affect. Normal speech. Access: Right upper arm AVF +b/t. LABORATORY DATA: Recent Labs Lab 01/19/20 0629 01/18/20 1552 WBC 7.9 7.4 HGB 8.4* 8.2* HCT 28.0* 26.8* PLT 351 369 Recent Labs Lab 01/19/20 0410 01/18/20 1551 NA 136 135* K 5.3* 5.5* CL 96* 94* CO2 31 31 BUN 50* 46* CREA 5.04* 4.69* CALCIUM 8.8 8.8 PHOS 9.1* -- ALBUMIN -- 3.4 GLU 84 195* Recent Labs Lab 05/08/20 0410 MG 1.9 Diagnostic Studies: Available data and images were reviewed personally. Significant results and findings are ad dressed here or in the Assessment and Plan. Thank you for the opportunity to be of assistance. Please call if you have any questions. Darlin Moseley MD Electronically signed: 01/19/2020 10:43 AM [facility] NEPHROLOGY documented in this encounter ED Notes Hair Ramos MD - 01/18/2020 3:32 PM PDTFormatting of this note might be different f rom the original. [facility] Estefani Tilley EMERGENCY DEPARTMENT ENCOUNTER NOTE [address] [place] [address] PCP:DIPESH Mccollum X2500 DIAGNOSIS: ICD-10-CM ICD-9-CM 1. ESRD on dialysis ([facility]) N18.6 585.6 Z99.2 V45.11 2. Hypoxia R09.02 799.02 3. Leg edema, left R60.0 782.3 4. Non-occlusive thrombusAcute I82.90 453.9 5. Poor social situation Z65.9 V62.9 6. ESRD (end stage renal disease) on dialysis ([facility]) N18.6 585.6 Z99.2 V45.11 7. Anemia due to chronic kidney disease, on chronic dialysis ([facility]) N18.6 585.6 D63.1 285.21 Z99.2 V45.11 8. Hypervolemia, unspecified hypervolemia type E87.70 276.69 9. Essential hypertension I10 401.9 CHIEF COMPLAINT: Chief Complaint Patient presents with Leg Pain ED Room: 445/445-01 01/19/2020 COLLEEN Tilley is a 74 y.o. female who presents to the Emergency Department presents to [facility] ED with left leg swelling increased shortness of breath and a wound on the inside of her l eft leg that is been present since her discharge from the hospital. The patient presented o n October 30, 2019 with the complaint of shortness of breath that have been ongoing for the last 4 to 5 days. She has been having some wheezing as well. She also noted some chest pa in with some pleuritic pain. No bloody cough no productive cough but she does have a histor y as well of having end-stage renal disease. At that time she did not have any new swelling or edema. She has multiple medical problems to include being a hemodialysis patient with a history of diabetes cancer and a history of blood clots. She was discharged from a care facility in [facility] and has been at home a few days. Not ed by her clinic to have oxy Upon arrival today off oxygen she was noted to be 83% on room air. Her saturations increase after being placed on 2 L per nasal cannula improved over 90% quickly. She is in no acute distress but reports that her left leg has become more swollen . She also notes inside of her left leg by her calf has a wound. There is a wound that has been present for some time after discharge from the hospitalization in [facility]. She is unsure. No fevers no chills but she does have tenderness the medial side of her left thigh and her left calf. She takes Epogen for chronic anemia secondary to her end-stage renal disease. She does not take any blood thinners. No antiplatelet therapy. She does not recall dialysis since her a rrival home. She does not have home oxygen. PAST MEDICAL & SURGICAL HISTORY The patient has a past medical history of Anemia, Arthritis, Back pain, Breast cancer ([facility]) , Cancer ([facility]), Diabetes ([facility]), Heart disease, Hemodialysis patient ([facility]), History of blood clots, Hypercholesteremia, Hypertension, Hypothyroidism, Renal failure, Seasonal allergies, and Stroke (cerebrum) ([facility]). The patient has a past surgical history that includes Mastecto my; Nose surgery; Eye surgery; Shunt Placement/Insertion (N/A, 11/08/2017); Hysterectomy; Get endectomy; Vein Surgery (Right, 01/04/2018); Shunt Placement/Insertion (Right, 02/04/2018); RE MOVAL TUNNELED CATHETER (Right, 04/04/2018); hip surgery (Right, 12/04/2018); and other surgi yancy history (Right, 03/28/2019). CURRENT MEDICATIONS [employer] Home Medications Medication Sig albuterol 90 mcg/puff [...] by mouth every 8 hours as needed. ALLERGIES Allergies Allergen Reactions Amoxicillin Other (See [...] stomach". Naprosyn [Naproxen] FAMILY AND SOCIAL HISTORY The patient's family history includes Cancer in her sister; Diabetes in some other family m embers. The patient reports that she has been smoking. She has never used smokeless tobacco. She reports that she does not drink alcohol or use drugs. REVIEW OF SYSTEMS As in history of present illness. A 10 system review was otherwise negative. Difficult due to the patient poor memory and being a very poor historian. Son was contacted and able to p rovide minimal information about sequence of events nor recent medical interventions. PHYSICAL EXAM VITAL SIGNS: (first vital signs):Temp: 37 C (98.6 F) Pulse: 76 Resp: 20 SpO2: (!) 83 %( placed on 2L O2 via NC at this time.) BP: 142/57 Body mass index is 25.09 kg/m. Vitals: 01/19/20 1002 01/19/20 1017 01/19/20 1032 01/19/20 1047 BP: 166/76 159/76 180/89 170/82 Pulse: 68 66 68 69 Resp: Temp: TempSrc: SpO2: 100% 100% 100% 97% Weight: Height: General: Alert, no active distress and not requiring any emergent interventions Eyes: Normal inspection, pupils equal and round, non-icteric sclera ENT: Ears normal Nose normal Pharynx normal Neck: Normal inspection Supple Full ROM Cardiovascular: Normal rate and rhythm, no extra sounds No murmurs rubs or gallops Focal PMI Respiratory: No respiratory distress or wheezing Normal excursion No retractions Abdomen: Soft, non-tender, non-distended Normal active bowel sounds Back: Normal inspection Without tenderness or deformity Skin: Color normal Warm and dry Extremities: TARANGO with equal pulses in the upper and lower extremities bilaterally Left lower extremity marked left edema 2+ above the mid thigh down the lower extremity. On the proximal left lower leg There is an approximate 4 cm x 2 cm eschar with a yellowish c icatrix. There is no streaking to some brawny edema with tenderness to palpation along the medial distal third of the thigh as well as it moves down toward the medial joint line. No obvious knee effusion. Neuro: No gross motor/sensory deficit GCS 15 No cerebellar deficits Alert and oriented to person and place. EKG 16:03 Normal sinus rhythm at 76 bpm Normal RI and LINDA Bifascicular block with axis deviation. Normal QT and QTc Normal ST/T without acute ischemic changes And other than rate is otherwise unchanged in comparison to an EKG from October 30, 2019. The V2 segments appear different believe that is most likely secondary to placement. It is very similar to V3 and the EKG obtained today and then transition to V4 V5 and V6. There i s no acute ischemic changes noted.. Interpreted independently contemporaneously by Hair Ramos DO. LABS Results for orders placed or performed during the hospital encounter of 01/18/20 Culture, MRSA Result Value Ref Range Culture Negative for MRSA by chromogenic agar method. B Type Natriuretic Peptide Result Value Ref Range BNP >5,000 (H) <100 pg/mL CBC with Differential Result Value Ref Range WBC 7.4 4.0 - 11.0 K/uL RBC 2.97 (L) 3.70 - 5.20 M/uL Hemoglobin 8.2 (L) 11.5 - 16.0 g/dL Hematocrit 26.8 (L) 34.0 - 47.0 % MCV 90.2 83.0 - 101.0 fL MCH 27.6 (L) 28.0 - 35.0 pg MCHC 30.6 (L) 32.0 - 36.0 g/dL RDW-CV 17.3 (H) <15.0 % RDW-SD 57.3 (H) 35.1 - 46.3 fL Platelet Count 369 140 - 440 K/uL MPV 9.6 6.5 - 12.4 fL % Neutrophils 75.1 45.0 - 82.0 % % Lymphocytes 17.7 (L) 20.0 - 45.0 % % Monocytes 4.8 4.0 - 12.0 % % Eosinophils 1.2 0.0 - 5.0 % % Basophils 0.8 0.0 - 1.0 % % Immature Granulocytes 0.4 0.0 - 0.4 % Absolute Neutrophils 5.52 1.80 - 8.50 K/uL Absolute Lymphocytes 1.30 0.60 - 3.20 K/uL Absolute Monocytes 0.35 0.00 - 1.00 K/uL Absolute Eosinophils 0.09 0.00 - 0.40 K/uL Absolute Basophils 0.06 0.00 - 0.10 K/uL Absolute Immature Granulocytes 0.03 0.00 - 0.03 K/uL % nRBC 0 0 - 2 per 100 WBCs Absolute nRBC 0.02 (H) 0.00 - 0.01 K/uL Comprehensive Metabolic Panel Result Value Ref Range Na 135 (L) 136 - 145 mmol/L K 5.5 (H) 3.4 - 5.1 mmol/L Cl 94 (L) 98 - 107 mmol/L CO2 31 20 - 31 mmol/L Anion Gap 10 3 - 16 mmol/L Glucose 195 (H) 60 - 106 mg/dL BUN 46 (H) 9 - 23 mg/dL Creatinine 4.69 (H) 0.55 - 1.02 mg/dL eGFR if not 9 (L) >=60 mL/min/1.73m2 Calcium 8.8 8.7 - 10.4 mg/dL Albumin 3.4 3.2 - 4.8 g/dL Bilirubin Total 0.2 (L) 0.3 - 1.2 mg/dL Total Protein 8.2 5.7 - 8.2 g/dL AST 42 (H) 0 - 34 U/L ALT 25 10 - 49 U/L Alkaline Phosphatase 108 46 - 116 U/L Globulin 4.8 (H) 2.1 - 3.8 g/dL Albumin/Globulin Ratio 0.7 (L) 0.8 - 1.9 BUN/Creatinine Ratio 9.8 Protime INR Result Value Ref Range Prothrombin Time 16.3 (H) 11.3 - 13.9 seconds INR 1.2 (H) 0.9 - 1.1 PTT Result Value Ref Range aPTT 36 22 - 36 seconds Troponin I Result Value Ref Range Troponin I 0.20 (H) <0.06 ng/mL C-Reactive Protein Result Value Ref Range CRP 68.50 (H) <10.00 mg/L Procalcitonin Result Value Ref Range Procalcitonin 0.27 <=0.50 ng/mL Comment Sedimentation Rate Result Value Ref Range Erythrocyte Sedimentation Rate 78 (H) <30 mm/hr Basic Metabolic Panel Result Value Ref Range Na 136 136 - 145 mmol/L K 5.3 (H) 3.4 - 5.1 mmol/L Cl 96 (L) 98 - 107 mmol/L CO2 31 20 - 31 mmol/L Anion Gap 9 3 - 16 mmol/L Glucose 84 60 - 106 mg/dL BUN 50 (H) 9 - 23 mg/dL Creatinine 5.04 (H) 0.55 - 1.02 mg/dL eGFR if not 8 (L) >=60 mL/min/1.73m2 Calcium 8.8 8.7 - 10.4 mg/dL BUN/Creatinine Ratio 9.9 CBC no Differential Result Value Ref Range WBC 7.9 4.0 - 11.0 K/uL RBC 3.11 (L) 3.70 - 5.20 M/uL Hemoglobin 8.4 (L) 11.5 - 16.0 g/dL Hematocrit 28.0 (L) 34.0 - 47.0 % MCV 90.0 83.0 - 101.0 fL MCH 27.0 (L) 28.0 - 35.0 pg MCHC 30.0 (L) 32.0 - 36.0 g/dL RDW-CV 17.3 (H) <15.0 % RDW-SD 56.3 (H) 35.1 - 46.3 fL Platelet Count 351 140 - 440 K/uL MPV 9.3 6.5 - 12.4 fL % nRBC 0 0 - 2 per 100 WBCs Absolute nRBC 0.00 0.00 - 0.01 K/uL Protime INR Result Value Ref Range Prothrombin Time 16.8 (H) 11.3 - 13.9 seconds INR 1.3 (H) 0.9 - 1.1 Magnesium Result Value Ref Range Magnesium 1.9 1.6 - 2.6 mg/dL Phosphorus Result Value Ref Range Phosphorus 9.1 (HH) 2.4 - 5.1 mg/dL Iron and Transferrin Result Value Ref Range Iron 21 (L) 50 - 170 ug/dL TRANSFERRIN 139.0 (L) 250.0 - 380.0 mg/dL TIBC 195 (L) 235 - 425 ug/dL % SATURATION 10.8 (L) 15.0 - 50.0 % Ferritin Result Value Ref Range FERRITIN 1,216 (H) 7 - 271 ng/mL POC Glucose Result Value Ref Range Glucose, POC 261 (H) 70 - 109 mg/dL POC Glucose Result Value Ref Range Glucose, POC 73 70 - 109 mg/dL POC Glucose Result Value Ref Range Glucose, POC 119 (H) 70 - 109 mg/dL ECG 12 lead Result Value Ref Range VENTRICULAR RATE EKG 76 BPM ATRIAL RATE 76 BPM P-R INTERVAL 134 ms QRS DURATION 152 ms Q-T INTERVAL 440 ms Q-T INTERVAL (CORRECTED) 495 ms P WAVE AXIS 75 degrees QRS AXIS 131 degrees T AXIS 57 degrees INTERPRETATION TEXT Normal sinus rhythm Right bundle branch block Left posterior fascicular block Abnormal ECG When compared with ECG of 30-OCT-2019 12:58, Criteria for Septal infarct are no longer present Confirmed by KEN ELLISON MD ([id number]) on 01/19/2020 6:23:18 AM IMAGING STUIDES (X-Rays interpreted by ED Physician) Recent Results (from the past 360 hour(s)) XR Chest AP Portable Narrative XR CHEST AP PORTABLE 01/18/2020 4:06 PM HISTORY: LEG PAIN. COMPARISON: 10/30/2019 Findings: Consolidation throughout the left lung with only minimal aeration. Patchy opacification involving the right perihilar soft tissues with diffuse interstitial thickening. Linear airspace disease in the right midlung. No evidence of pneumothorax. Aortic likely large left pleural effusion calcifications are seen. Heart is enlarged. No acute osseous findings identified. Impression Pleural effusion, atelectasis/consolidation throughout the left lung is slightly improved when compared to 10/30/2019 but remains severe. Slightly worsened right perihilar interstitial thickening and a small amount of fluid or atelectasis along the right major fissure. Dictated and Signed by: Itz Madsen MD Electronically signed: 01/18/2020 5:34 PM VAS Lower Extremity Venous Left Narrative VAS LOWER EXTREMITY VENOUS LEFT 01/18/2020 4:04 PM HISTORY: left leg swelling and edema asymmetric compared to the right. COMPARISON: 10/02/2017 PROTOCOL: Choi scale and Doppler images of the lower extremity veins. FINDINGS: The left common femoral, profunda femoral, superficial femoral, and popliteal veins demonstrate normal flow, augmentation, and compression. Echogenic and chronic appearing peripheral calcification/thrombus is noted in the proximal left greater saphenous vein. Impression No evidence for DVT. Echogenic and chronic appearing calcification/thrombus is noted in the left greater saphenous vein. Diffuse subcutaneous edema is noted throughout the left medial calf soft tissues. Dictated and Signed by: Itz Madsen MD Electronically signed: 01/18/2020 5:[address] Chest wo Contrast Narrative CT CHEST WO CONTRAST 01/18/2020 5:36 PM HISTORY: Chest pain or SOB, pleurisy or effusion suspected left sided empyema. COMPARISON: 10/30/2019 PROTOCOL: Axial images of the chest were obtained. Coronal and sagittal reformations were acquired. FINDINGS: Scattered diffuse interstitial thickening. Mosaic attenuation ground glass pattern throughout both lungs. Trachea and central bronchi are generally patent. There are a few areas of questionable mild endobronchial debris and diffuse endobronchial opacification in the left lower lobe; however, this is significantly improved since prior CT. Extensive consolidation of the left upper and lower lobes. New patchy groundglass opacities throughout the right lung. Small right pleural effusion. Similar moderate likely loculated left pleural effusion. Heart is enlarged. Severe coronary artery calcifications. Mitral annular calcification. Multiple enlarged mediastinal lymph nodes. Right breast skin thickening is unchanged. Evidence of prior left mastectomy. Likely diffuse anasarca. Extensive aortic calcifications. Likely severe stenosis of the origin of the left subclavian artery. Fusiform enlargement of the pulmonary arteries measure 4.0 cm. Mild sliding-type hiatal hernia. Multiple bilateral rib fracture deformities. Interval likely worsening acute on chronic discitis/osteomyelitis at T11-T12. Impression Cardiomegaly, pulmonary artery enlargement/hypertension, and evidence of pulmonary edema with small pleural effusions. Loculated left pleural effusion in this patient with history of empyema with extensive consolidation/pneumonia throughout the left lung. Enlarged mediastinal lymph nodes likely are reactive. Interval likely worsening acute on chronic discitis/osteomyelitis at T11-T12. Dictated and Signed by: Itz Madsen MD Electronically signed: 01/18/2020 6:[address] Lower Extremity Left wo contrast Narrative CT LOWER EXTREMITY LEFT WO CONTRAST 01/18/2020 9:20 PM HISTORY: Lower leg swelling/redness, cellulitis suspected left medial calf dry ulcer, painful, eval nec fasc osteomyelitis. COMPARISON: 01/18/2020 PROCEDURE: Thin cut axial slice CT imaging was performed. The left lower extremity at the level of the femur through the mid foot. Intravenous contrast was not administered. FINDINGS: Extensive subcutaneous edema/anasarca throughout all visualized soft tissues, compatible with fluid overload when coupled with partial visualization of the right lower extremity as well as CT chest findings from same day. Widespread cellulitis cannot be entirely excluded but thought less likely. No subcutaneous emphysema to suggest necrotizing fasciitis at this time. Extensive circumferential calcified plaque is seen throughout all vascular structures with likely multiple areas of severe stenosis. Diffuse fatty atrophy throughout the visualized bilateral lower extremity musculature. No suspicious lymphadenopathy identified. Small left knee joint effusion. No fluid collection to suggest abscess at this time. Severe intertarsal and tarsometatarsal joint degenerative changes and prominent subchondral cystic changes. Diffuse osteopenia. Impression Extensive subcutaneous edema/anasarca throughout all visualized soft tissues, compatible with fluid overload when coupled with partial visualization of the right lower extremity as well as CT chest findings from same day. No subcutaneous emphysema to suggest necrotizing fasciitis at this time. No fluid collection to suggest abscess at this time. Dictated and Signed by: Itz Madsen MD Electronically signed: 01/18/2020 9:55 PM ED COURSE & MEDICAL DECISION MAKING Pertinent Labs & Imaging studies were reviewed along with EMS notes and group home record s if applicable. (See chart for details) Medications and Allergy list reviewed. Nurses note and old records were reviewed: From discharge summary Nov 17 2019 PRIMARY DISCHARGE DIAGNOSES: 1. Empyema due to Streptococcus bovis status post VATS on 10/31. 2. Issues with her right AV fistula requiring vascular surgery intervention. 3. Influenza A. 4. Acute toxic encephalopathy, present on admission, resolved. 5. Acute hypoxemic respiratory failure, present on admission due to empyema, resolved. SECONDARY DISCHARGE DIAGNOSES: 1. Type 1 diabetes mellitus. 2. End-stage renal disease on Wednesday, Wednesday, Wednesday hemodialysis. 3. Hypertension. 4. Coronary artery disease. 5. Breast cancer, status post mastectomy. 6. Chronic pain. 7. Anemia. 8. Osteoarthritis. 9. Hyperlipidemia. 10. Seasonal allergies. 11. History of cerebrovascular accident. 12. History of blood clots, not otherwise specified. 13. Hypothyroidism. 13:14 The patient was seen and examined, This patient presents with the chief complaint of chest pain. The partial list of possible emergent diagnoses that the patient requires an ev aluation for includes hypercoagulable state, anemia, dehydration, renal failure, electrolyte changes, unstable angina, aortic dissection, acute myocardial ischemia, arrhythmia, congest lashawn heart failure, pericarditis, effusions, pulmonary edema and anxiety with hyperventilatio n. I have ordered a 12 lead EKG, CXR, CBC with diff, CMP, INR, CK, BNP and troponin. She has a history of clots and DVT. She will require left lower extremity DVT study. With her oxygenation at 83% on room air she will also require further investigation to see if her con gestive heart failure is returned. Medical Decision Making as of January 18 1314 Dian January 18, 2020 1651 B-TYPE NATRIURETIC PEPTIDE(!): >5,000 I personally reviewed the lab results and they have been posted to the chart. Pertinent po sitive and negative findings have been addressed appropriately and I have discussed any sign ificant abnormalities. Discussion with the on-call hospitalist regarding mission the hospital for current clinical presentation and oxygen requirement and discharge planning to a more appropriate facility o r home environment to allow for the patient to have a successful return home. Last Set of Vital Signs: Temp: 36.2 C (97.2 F) Pulse: 62 Resp: 18 SpO2: 98 % BP: 167/78 Medications sodium chloride 0.9% (NS) infusion (has no administration in time range) albumin 25% IVPB 12.5 g (has no administration in time range) heparin 1,000 units/mL injection 500 Units (500 Units Intravenous Given 01/19/20 0812) heparin in half-normal saline 100 units/mL infusion (200 Units/hr Intravenous New Bag 0 0809) lidocaine (PF) 1% injection 1 mL (1 mL Intradermal Given 01/19/20 08) cefTRIAXone (ROCEPHIN) 2 g in sodium chloride 0.9% 50 mL IVPB (2 g Intravenous New Bag 210) vancomycin per pharmacy (has no administration in time range) albuterol 90 mcg/puff inhaler 2 puff (has no administration in time range) levothyroxine (SYNTHROID) tablet 75 mcg (75 mcg Oral Given 01/19/20 0640) olopatadine (PATANOL) 0.1% ophthalmic solution 1-2 drop (2 drops Both Eyes Given 01/19/20 082 3) pantoprazole (PROTONIX) DR tablet 40 mg (40 mg Oral Given 01/19/20 0640) heparin 5,000 units/mL injection 5,000 Units (5,000 Units Subcutaneous Given 01/18/20 0756) acetaminophen (TYLENOL) tablet 650 mg (650 mg Oral Given 01/19/20 7528) fentaNYL (PF) injection 25 mcg (25 mcg Intravenous Given 01/19/20 1223) dextrose 50% injection 12.5-25 g (has no administration in time range) And dextrose 10% (D10W) infusion (has no administration in time range) insulin lispro (humaLOG KWIKPEN) injection (pen) 0-12 Units (0 Units Subcutaneous Not Given 01/19/20 1309) amLODIPine (NORVASC) tablet 5 mg (5 mg Oral Given 01/19/20 0942) furosemide (LASIX) tablet 160 mg (160 mg Oral Given 01/19/20 0942) labetalol (TRANDATE) 5 mg/mL injection 20 mg (20 mg Intravenous Given 01/19/20 1214) hydrALAZINE (APRESOLINE) injection 10 mg (10 mg Intravenous Given 01/19/20 1141) calcium acetate (PHOSLO) capsule 667 mg (has no administration in time range) epoetin karthik-epbx (RETACRIT) 10,000 units/mL injection 10,000 Units (has no administration in time range) vancomycin 1 g in sodium chloride 0.9% 250 mL IVPB (1 g Intravenous New Bag 01/18/20 9456) Vitals: 01/19/20 1217 01/19/20 1232 01/19/20 1247 01/19/20 1302 BP: (!) 167/98 153/73 163/70 167/78 Pulse: 64 61 63 62 Resp: Temp: TempSrc: SpO2: 95% 97% 97% 98% Weight: Height: FINAL IMPRESSION ICD-10-CM ICD-9-CM 1. ESRD on dialysis ([facility]) N18.6 585.6 Z99.2 V45.11 2. Hypoxia R09.02 799.02 3. Leg edema, left R60.0 782.3 4. Non-occlusive thrombusAcute I82.90 453.9 5. Poor social situation Z65.9 V62.9 6. ESRD (end stage renal disease) on dialysis ([facility]) N18.6 585.6 Z99.2 V45.11 7. Anemia due to chronic kidney disease, on chronic dialysis ([facility]) N18.6 585.6 D63.1 285.21 Z99.2 V45.11 8. Hypervolemia, unspecified hypervolemia type E87.70 276.69 9. Essential hypertension I10 401.9 Current Discharge Medication List Hair Ramos. This document has been prepared with a voice recognition system. The possibility of "sound alike" program management specialist errors, addition and/or deletions may occur. If there is any question p lease contact the author of the document. Hair Ramos MD 01/19/20 1318 [email or web address] R N - 01/18/2020 3:09 PM PDTLeft leg pain and swelling, wound present on left lower leg and p atient states she does not know how the wound got there. States wound was present when she w juanpablo up after being [place] by [facility] [place]. documented in this encounter Miscellaneous Notes Plan of Sharon Vicente RN - 01/21/2020 8:52 AM PDTDischarge planning note: This AM this CM received call from HORACIO Navarro RN at [facility], needing to confirm patient's PCP, avani shah per JENNIFER Hameed's note, it is Dr. Rosales at [facility]. Gave Ramon this MD update wh en she returned my call to her this AM. She also needed to find out what dressing changes are needed and patient states that MD/RN stated that she is just to shower and keep wound in her LE clean and dry and open to air for now. This above info given to Ramon which she appreciated. This CM recommended that she contact patient and remind her that it may be later this week that they will be able to see her, and she states that she will do this. Electronically signed by: Sharon Rosado RN 01/21/2020 8:57 AM Ramon left another message this AM requesting the d/c summary and H&P from this patient. Faxed both to fax # [phone] as requested. Fax confirmation confirmed. Electronically signed by: Sharon Rosado RN 01/21/2020 12:55 PM lan of Srini Vicente RN - 01/20/2020 3:15 PM PDT Problem: Discharge Planning Goal: Patient's discharge needs will be identified in a timely manner Outcome: Met Goal: Patient will be discharged in a safe manner Outcome: Met Per attending MD this patient is ready for discharge today. has spoken with the fiberglass roving winder and she will be contacting the patient on Wednesday to let her know where and when her chair time is scheduled near or in [place]. Patient is in agreement to go today and will be calling her son, Indu, to come and transp ort her home. This CM also spoke with Lisa Ibarra, patient's caregiver where patient lives in [facility] and she is ready for her to return home as well. Her phone # is [phone]. Confirmed with Lisa that she is her CG 05/04. Let her know that patient will be coming with new 02 and 4WW and [employer] will be setting up t he concentrator today at home. Let her know that the fiberglass roving winder will be calling patient Wednesday AM to let her know when/ where her chair time will be for her HD on Wednesday. Home 02 eval done and she is needing new home 02 set up. Patient is fine with using any company to get her 02. Preference form was signed for [employer] for both DME and 02 and placed in ghost chart. This CM contacted Jose, at [facility], who states that they also service [place] and will set up her concentrator there as well as deliver the portable tank her for transport. Noted patient is also needing a 4WW prior to discharge so let Jose know this as well. He was made aware that she has both Medicare and Medicaid and will be delivering her walker and 02 within the hr. Requested RN to have patient call her son, Indu, to come and get her. He lives in [facility]. Faxed both the DME order and the 02 order to [employer]. Fax transmission confirmed and placed in ghost chart. Faxed the HH order over to [facility] fax# [phone], awaiting for the terminal operations manager RN to call is program writer. Ramon, terminal operations manager RN with [facility] called and let her know of the PT RN order headed her way and let her know that patient will be fine until they are able to process the order possibly by Wednesday since they had a lot of new orders come thru. Dispo: Patient will be discharged to her caregivers home today with new home 02 and new 4WW. Indu, her son, will be transporting her home. Merchandise Supervisor will be contacting the patient Wednesday AM to let her know where/when her HD melany ir has been set up near/in [place]. Patient also will be having HH RN PT at home thru [facility] starting approx this next . Electronically signed by: Sharon Rosado RN 01/20/2020 3:24 PM lan of Care - , Raeann prestonmarium Kearney, PT - 01/20/2020 11:55 AM PDTFormatting of this note might be different from the origi nal. Physical Therapy Plan of Care Initial Evaluation Note Summary: Estefani presents to physical therapy with impaired functional mobility and decrea sed activity tolerance following admit for LLE cellulitis, recurrent Tspine discitis/osteomy elitis, acute respiratory failure, and ESRD. Objective exam reveals impairments with aerobic capacity/endurance, anthropometric characteristics, ergonomics and body mechanics, function al endurance/activity tolerance, gait, locomotion, and balance, integumentary integrity, mot or function, muscle performance, and posture. Co-evaluation with OT to maximize pt safety an d participation. Pt suspicious of therapists' motives and perseverating on "being judged and evaluated." Limited mobility performed this session with pt requiring extensive encourageme nt to participate. Pt would benefit from ongoing therapy services prior to home discharge. RN cleared patient for participation in therapy. Patient participated without adverse react ion. RN debriefed on therapy session and patient status. Recommended mobility with nursing: Day Night bedside commode bedside commode Front Wheel Walker Front Wheel Walker contact guard assistance-minimum assistance contact guard assistance-minimum assistance Barriers to discharge and functional limitations include decreased insight into safety and deficits, decreased functional activity tolerance, decreased functional transfers, decreased functional gait distance, decreased gait velocity, demonstrating need for 24/7 supervision, not yet able to mobilize at level safe for home discharge, [facility] indicating significant imp airment with basic functional mobility, and medical status. Estefani will benefit from therapeutic intervention to address impairments and increase safet y and independence with activities necessary for safe discharge. Refer below for specific d etails regarding functional levels. Precautions/Limitations: falls, oxygen therapy device and L/min Previous Level of Function: Transferring: independent Ambulation: independent Toileting: independent Bathing: independent Dressing: independent Eating: independent Communication: understands/communicates without difficulty Swallowin-->swallows foods/liquids without difficulty Equipment Currently Used at Home: 4 wheeled walker (4WW) Prior Functional Level Comment: Gait w/ 4WW. Potential available assistance at discharge: Role Relationships Comment: Unknown @ this visit. Limited PLOF questioning to allow time f or further functional tasks. Pt suspicious, requires extra time to respond to questions, et c. Further inquiry is indicated though uncertain how reliable pt is. Reportedly newly resi ding w/ a caregiver in [place],. Unknown what level of care is provided. Living Environment/Accessibility: Lives With: other (see comments)(Reportedly newly residing w/ a caregiver in [place]. ) Living Arrangements: apartment Home Accessibility: stairs to enter home Financial Concerns: none Transportation Available: family or friend will provide Living Environment Comment: Unknown @ this visit. Limited PLOF questioning to allow time f or further functional tasks. Pt suspicious, requires extra time to respond to questions, et c. Further inquiry is indicated though uncertain how reliable pt is. Patient/Family s Goals: return home Rehabilitation potential: fair, will monitor progress closely Physical Therapy Discharge Recommendations are: Recommended discharge disposition: long term facility(unless caregiver can provide 2 4/7 care) Post discharge physical therapy recommendation: ongoing low intensity therapy, will benefi t from structured setting Equipment Recommendations: 4 wheeled walker (4WW) Planned Interventions: balance training, bed mobility training, gait training, neuromuscul ar re-education, patient/family education, postural re-education, stair training, strengthen ing, transfer training Recommended Frequency: other (see comments)(5-7 times/wk) Patient Status/Goals: Reflects last filed data and may be from multiple contributors. Gait pt reluctant to follow cues/commands d/t suspicions of therapists' motives and feeling "nghia ged", requires extensive encouragement to ambulate short distance, CGA for safety/steadying d/t generalized weakness/decreased balance/poor overall safety awareness Level of [place]: contact guard assist, verbal cues required Assistive Device: 2 wheeled walker (FWW) Distance (feet): 5 x 2 Gait Deviations: pamela decreased, double stance time increased, limb motion velocity decr eased, step length decreased, stride length decreased, stride width increased, [id number]-[id number] ce ratio decreased, [id number] clearance decreased, weight-shifting ability decreased Safety Issues: balance decreased during turns, sequencing ability decreased, step length de creased, weight-shifting ability decreased Impairments: decreased flexibility, strength decreased, impaired balance, coordination impa ired, motor control impaired, pain, other (see comments)(decreased activity tolerance) Transfers pt reluctant to follow cues for sequencing/technique d/t suspicions of therapists' motives and feeling "judged", able to stand from raised height bed with CGA however requires 2P min A to stand from chair d/t lower height Bed-Chair, Level of [place]: contact guard assist, set up required, verbal cues requir ed Chair-Bed, Level of [place]: not tested(pt up in chair at end of session) Mbz-Qlour-Vok, Assistive Device: 2 wheeled walker (FWW) Sit-Stand, Level of [place]: minimal assist (75% patient effort), 2 person assist requ ired, set up required, verbal cues required, tactile cues required Stand-Sit, Level of [place]: contact guard assist, verbal cues required [id number]-Mab, Assistive Device: 2 wheeled walker (FWW) Safety Issues: balance decreased during turns, sequencing ability decreased, step length de creased, weight-shifting ability decreased, loses balance backward, stands too far from assi stive device Impairments: decreased flexibility, strength decreased, impaired balance, coordination impa ired, motor control impaired, postural control impaired, pain, other (see comments)(decrease d activity tolerance) Bed Mobility not tested, pt sitting up at EoB upon therapists' arrival, up in chair at end of session Balance Sitting Balance: Static: good balance Sitting Balance: Dynamic: good balance Standing Balance: Static: fair balance Standing Balance: Dynamic: fair balance Functional Endurance poor overall, pt somewhat self-limiting, suspicious of therapists' motives and being "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 BASIC MOBILITY Turning from your back to your side while in a flat bed without using bedrails?: min assist , CGA, SBA, Supervision/a little help(clinical judgment) Moving from lying on your back to sitting on the side of a flat bed without using bedrails? : min assist, CGA, SBA, Supervision/a little help(clinical judgment) Standing up from a chair using your arms (e.g. wheelchair, or bedside chair)?: mod or max a ssist/a lof of help Moving to and from a bed to a chair (including a wheelchair)?: min assist, CGA, SBA, Superv ision/a little help To walk in a hospital room?: min assist, CGA, SBA, Supervision/a little of help Climbing 3-5 steps with a railing?: dependent/unable(clinical judgment) Total Basic Mobility Six Click AM-PAC: 15 Completed the [facility] Activity Measure for Post Acute Care (AM-PAC) "6 Clicks" Ba sic Mobility Inpatient Short Form. This version of the AM-PAC is an assessment tool used to measure a person's level of disability in performing basic mobility tasks. Estefani's score indicates a performance of 57.70% impairment in the functioning of basic mobility. Raw Score - Functional Limitation % (for CMS) - "Severity Modifier" CN 6 - 100.00 CM 7 - 92.36 8 - 86.62 9 - 81.38 CL 10 - 76.75 11 - 72.57 12 - 68.66 13 - 64.91 14 - 61.29 CK 15 - 57.70 16 - 54.16 17 - 50.57 18 - 46.58 19 - 41.77 CJ 20 - 35.83 21 - 28.97 22 - 20.91 CI 23 - 11.2 CH 24 - 0.00 Predicted Discharge During Acute Hospitalization (Raw Score) Home = 20.1 With assist = 17.9 SNF = 14 IRF = 13.6 LTAC = 11.5 PT Goal Review Date Most Recent Value STG Review Date 01/27/20 at 01/20/2020 1155 All Bed Mobility Goal Most Recent Value STG Status new at 01/20/2020 1155 STG [place] Level modified independent at 01/20/2020 1155 STG Assistive Device none at 01/20/2020 1155 [id number] Goal Most Recent Value STG Status new at 01/20/2020 1155 STG [place] Level modified independent at 01/20/2020 1155 STG Assistive Device 4 wheeled walker (4WW) at 01/20/2020 1155 Gait Goal Most Recent Value STG Status new at 01/20/2020 1155 STG [place] Level modified independent at 01/20/2020 1155 STG Assistive Device 4 wheeled walker (4WW) at 01/20/2020 1155 STG Distance (feet) 50 at 01/20/2020 1155 PT Time Calculation PT Additional Treatment Time: Co-treatment PT Co-treatment Start Time: 1120 PT Co-treatment Stop Time: 1155 PT Co-treatment Total Time: 35 PT Total Treatment Time: 35 Timed TX Code Minutes: 0 Electronically signed by: Shannon Vizcarra, PT, 01/20/2020 3:20 PM lan of Care - Darlin López OT - 01/20/2020 11 :54 AM PDT Occupational Therapy Plan of Care Initial Evaluation Note Summary: Estefani presents to occupational therapy with Impaired ADLs, decreased functional mobility, decreased functional activity tolerance, decreased safety awareness, decreased gr oss motor strength following admit w/ acute respiratory failure d/t volume overload; LLE wou nd; ESRD on HD 3x/wk; anemia. Pt w/ complex medical hx w/ other prolonged hospitalizations and rehab stays- see H&P. . Objective exam reveals impairments with aerobic capacity/endura nce, anthropometric characteristics, ergonomics and body mechanics, functional endurance/act ivity tolerance, gait, locomotion, and balance, integumentary integrity, motor function, mus vasiliy performance, posture. Pt suspicious of therapist's motivations- not wanting to be "judg ed and talked about," has reduced initiation and accountability for her own behaviors. She would benefit from further skilled rehab interventions to promote maximal functional indepen dence and safety. A co-evaluation was completed today w/ PT for safety, to maximize functio n, and to limit the interruptions to the pt for her comfort. RN cleared patient for participation in therapy. Patient was agreeable to therapy. Patient participated without adverse reaction. RN debriefed on therapy session and patient status. I t is encouraged that the patient be up in chair for all meals. Recommended toileting with nursing: Day Night bedside commode bedside commode Front Wheel Walker Front Wheel Walker contact guard assistance-min assist contact guard assistance- min assist Barriers to discharge and functional limitations include decreased insight into safety and deficits, decreased functional activity tolerance, decreased bed mobility, decreased functio nal transfers, decreased ability to perform ADLs, decreased ability to perform IADLs, not ye t able to mobilize at level safe for home discharge, and medical status. Estefani will benefit from therapeutic intervention to address impairments and increase safet y and independence with activities necessary for safe discharge. Refer below for specific d etails regarding functional levels. Precautions/Limitations: falls, oxygen therapy device and L/min Previous Level of Function: Transferring: independent Ambulation: independent Toileting: independent Bathing: independent Dressing: independent Eating: independent Communication: understands/communicates without difficulty Swallowin-->swallows foods/liquids without difficulty Equipment Currently Used at Home: 4 wheeled walker (4WW) Prior Functional Level Comment: Gait w/ 4WW. Potential available assistance at discharge: Role Relationships Comment: Unknown @ this visit. Limited PLOF questioning to allow time f or further functional tasks. Pt suspicious, requires extra time to respond to questions, et c. Further inquiry is indicated though uncertain how reliable pt is. Reportedly newly resi ding w/ a caregiver in [place],. Unknown what level of care is provided. Living Environment/Accessibility: Lives With: other (see comments)(Reportedly newly residing w/ a caregiver in [place]. ) Living Arrangements: apartment Home Accessibility: stairs to enter home Financial Concerns: none Transportation Available: family or friend will provide Living Environment Comment: Unknown @ this visit. Limited PLOF questioning to allow time f or further functional tasks. Pt suspicious, requires extra time to respond to questions, et c. Further inquiry is indicated though uncertain how reliable pt is. Patient/Family s Goals: Pt verbalized no goals despite inquiry of what is important to he r. Rehabilitation potential: fair, will monitor progress closely Occupational Therapy Discharge Recommendations are: Recommended discharge disposition: long term facility(Unless Lisa can provide 24-h our supervision, assistance prn. ) Post discharge occupational therapy recommendation: ongoing low intensity therapy, will be nefit from structured setting Equipment Recommendations: (TBD closer to d/c. ) Planned Interventions:ADL retraining, balance training, bed mobility training, functional e ndurance training, patient/family education, strengthening, transfer training, discharge bucky nning Recommended Frequency: 4 times/wk, 5 times/wk Patient Status/Goals: Reflects last filed data and may be from multiple contributors. ADLs Further ADLs @ future visits. Pt doffed,donned socks from seated position by crossing legs. Required extra time, patienc e ("You people, you have no patience."), and moderate effort. She is suspicious of our requ ests for participation in any actitivity. LB Dressing, Level of [place]: stand by assist LB Dressing Assess/Train, Position: sitting LB Dressing Impairments: decreased flexibility, strength decreased, pain, impaired function al endurance/activity tolerance Functional Endurance Poor overall. Pt shaq's self-limiting behaviors, has reduced initiation and is very self-d epricating. Suspicious of therapists and being "judged." Cognitive Pt alert, oriented. Very subdued, believes all caregivers to be judging her and talking ab out her without her presence. Subdued. Requires time to respond, 10-20 sec. Pessimistic t owards her status, decreased accountability for her current status as well. Bed Mobility Pt seated on EOB on therapists' arrival. Further bed mobility @ future visits. Transfers Co-evaluation w/ PT for safety, expedience for the pt comfort, to maximize functional indep endence. See PT evaluation for further info on status of transfers. ROM L UE ROM: WFL R UE ROM: WFL Strength L UE Strength: Gross motor weakness, generalized weakness/deconditioning for ADLs/mobility, grossly 4-/5 R UE Strength: Gross motor weakness, generalized weakness/deconditioning for ADLs/mobility, grossly 4-/5 OT Goal Review Date Most Recent Value STG Review Date 01/27/20 at 01/20/2020 1154 UB Dressing Goal Most Recent Value STG Status new at 01/20/2020 1154 STG [place] Level supervised at 01/20/2020 1154 LB Dressing Goal Most Recent Value STG Status new at 01/20/2020 1154 STG [place] Level stand by assist at 01/20/2020 1154 Toileting Goal Most Recent Value STG Status new at 01/20/2020 1154 STG [place] Level stand by assist at 01/20/2020 1154 Toilet Transfer Goal Most Recent Value STG Status new at 01/20/2020 1154 STG [place] Level stand by assist at 01/20/2020 1154 OT Time Calculation OT Additional Treatment Time: Co-treatment OT Co-treatment Start Time: 1120 OT Co-treatment Stop Time: 1155 OT Co-treatment Total Time: 35 OT Total Treatment Time: 35 Timed TX Code Minutes: 0 Electronically signed by: Darlin López OT, 01/20/2020 2:56 PM lan of [facility] - Ashli Del Castillo RN - 01/19/2020 6:38 PM PDTPatient alert and oriented x4, pain treated with P RN fentanyl. HD today. Using call light for assistance. Good appetite at dinner. COVID negat lashawn. Needs help repositioning. 6: 40 PM PDTPlan of [facility] - Bry Lucero RRT - 01/19/2020 5:37 PM PDTPatient was admitte d for cellulitis, ESRD, R/O COVID. Hx of CKD, CHF, DM. NO CPAP hx. COVID test came back nega tive. On 2 l/m nasal cannula, sating mid but on dialysis today. BS clear and diminished. No prn neb treatments/inhalers needed/given. Will continue to monitor and treat as needed. t lan of [facility] - Cara Jackson MSW - 01/19/2020 3:08 PM PDTPhone call to [facility] pat ient. Patient's PCP is Dr. Rosales, spoke with him regarding patient. He states that she hasn't been at the clinic since Sep 2019, was at a mcc in [facility]. He states th at the [facility] staff have been trying to get in touch with patient for an appointm ent since she just returned to the area. Phone call to [facility] community service specialist, she states patient has a hist ory of smoking, homelessness-usually stays on a couch at family's house, not sure where she is currently living. Phone call to [facility] in [place], , spoke with Emili who confirmed patient was a resident there from 11/17/2019-01/16/2020, states patient had called her son and left AMA. Phone call into patient's room, she isn't wanting to speak at the moment. Dr. Flako Moseley notified this program writer that patient usually gets dialysis in [place], but is o n a waiting list, is third in line and will need dialysis at a different clinic. In to see patient, has been COVID ruled out, to discuss discharge planning. Patient is irri table with the visit. Patient states she lives with Lisa Ibarra ([phone] in [place]) and that she plans to return there. Discussed with patient needing a dialysis clinic, patient states Lisa will take her, wherever she needs dialysis. Patient s tates she needs home oxygen at Lisa's house. Patient provided this program writer with Lisa's in formation. Phone call to Lisa, she confirmed that the patient would be living with her, patient need ed home oxygen. Lisa states she can tow picker the oxygen through [facility] if she had a prescription. Discussed with Lisa dialysis and needing transportation to [place] or [facility], Lisa stated she can give the patient a ride for dialysis to either clinic as long as it was after 10:00am. Phone call to Jer , to set up a dialysis time in [place] or [facility], spoke with Margaret. Margaret applied for a dialysis time online for patient, reference #[id number]. Margraet states they will make a request for medical records to the [facility] records department for their physician to review. Contact information given for the ospital for Margaret to provide a follow up call. Margaret states CM can contact Marilynn [phone] for a status on the dialysis time in [place]. Plan: Home with caregiver Lisa when medically stable eICU Richie - Luis Clark RN - 01/19/2020 2:39 PM PDTRight AVF deaccessed per policy and pressure held u ntil hemostasis achieved. Total UF off of 3218 mls. Continues to be hypertensive, will have primary RN give PRN meds when available. Electronically signed by Luis Hutton, RN at 2:41 PM PDTPlan of Care - Danyelle Osborne Chaplain - 01/19/2020 12:16 PM PDT Spiritual Care Estefani Tilley is a 74 y.o. female who is admitted for Non-occlusive thrombus [I82.90] Hypoxia [R09.02] ESRD on dialysis (HCC) [N18.6, Z99.2] Leg edema, left [R60.0] Poor social situation [Z65.9]. Spiritual Assessment: Estefani arrived with her son yesterday and he asked that his mom be cared for as she has bee n in a SNF and he was looking forward to having her home. Today's phone call was a follow u p visit from yesterday. Estefani is coping well, she is very resilient and a strong matriarch al woman in her family. She denies needs today and is courteously thankful of chaplain yocasta del rosario in phone call. Interventions: Provided supportive phone call today. Outcomes: Estefani is coping with her ongoing medical challenges Follow Up: Chaplains will follow PRN. 1 2:22 PM PDTPlan of Melanie - Michelle Jackson - 01/18/2020 5:13 PM PDTDischarge Planning: This Asst was asked to speak with Estefani to try and sort out social situation. Estefani has a hard time answering questions. Estefani reports she was discharged from [facility] in November and went to a mcc. She can no t tell me which one. She thinks she discharge from the SNF a few days ago. Estefani reports at she is a M/W/F dialysis patient. She states she did not go to dialysis yesterday because she was sick. She does not know when her next dialysis will be. Estefani reports she was on ox ygen at the SNF but not sent home with it. When asked if she was discharged or left against medical advise she tells me a little bit of both. Call placed to son Azael @ [phone]. He is hard to understand via phone, it sounds as though he may be driving in a car. Azael reports he picked is mom up from [facility] recently. He reports she w as discharged without oxygen. He reports they told the facility she would have a general agent w hen she gets home. He does not have care lined up yet. Azael went on to tell me that [facility] will have to pay for whatever care is needed. Disposition is pending at this time but Estefani will likely be admitted to the hospital. CM will need to follow up. Dispo: TBD Electronically signed by: Michelle Jackson 01/18/2020 5:25 PM documented in this encou nter Plan of Treatment + +------+--------+ + + | Name | Type | Priori | Associated Diagnoses | Order Schedule | | | | ty | | | + +------+--------+ + + | DME: Oxygen Therapy | DME | Routin | ESRD on dialysis | DME 1 Time for 1 | | | | e | ([facility]) Hypoxia Leg | Occurrences starting | | | | | edema, left | 01/20/2020 until | | | | | Non-occlusive | 01/20/2020 | | | | | thrombus Poor | | | | | | social situation | | | | | | ESRD (end stage | | | | | | renal disease) on | | | | | | dialysis ([facility]) | | | | | | Anemia due to | | | | | | chronic kidney | | | | | | disease, on chronic | | | | | | dialysis ([facility]) | | | | | | Hypervolemia, | | | | | | unspecified | | | | | | hypervolemia type | | | | | | Essential | | | | | | hypertension Anemia | | | | | | due to end stage | | | | | | renal disease (HCC) | | | | | | Secondary | | | | | | hyperparathyroidism | | | | | | (HCC) Cellulitis of | | | | | | left lower | | | | | | extremity Diabetes | | | | | | mellitus type II, | | | | | | non insulin | | | | | | dependent - DIET | | | | | | Control | | | | | | Hypothyroidism, | | | | | | unspecified type | | | | | | Poor historian | | | | | | Gastroesophageal | | | | | | reflux disease, | | | | | | esophagitis presence | | | | | | not specified | | | | | | Pulmonary | | | | | | hypertension, mild | | | | | | (HCC) Arthritis | | | | | | History of blood | | | | | | clots Cancer (HCC) | | | | | | Heart disease | | | | | | Seasonal allergies | | | | | | Hyperlipidemia, | | | | | | unspecified | | | | | | hyperlipidemia type | | | | | | Depression, | | | | | | unspecified | | | | | | depression type | | | | | | Disorder of kidney | | | | | | and ureter 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 | | | | | | metabolism Facial | | | | | | cellulitis Left | | | | | | orbital abscess 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 Orbital | | | | | | cellulitis on left | | | | | | Other secondary | | | | | | osteoarthritis of | | | | | | multiple sites | | | | | | Other chronic pain | | | | | | 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 | | | | | | (HCC) Marijuana use | | | | | | Chronic renal | | | | | | insufficiency, stage | | | | | | IV (severe) (HCC) | | | | | | Non-compliance | | | | | | probable Discitis of | | | | | | thoracic region | | | | | | Osteomyelitis of | | | | | | thoracic region | | | | | | (HCC) Pleural | | | | | | effusion, left | | | | | | Influenza A RBBB | | | | | | (right bundle branch | | | | | | block) | | + +------+--------+ + + | DME: Walker | DME | Routin | ESRD on dialysis | DME 1 Time for 1 | | | | e | ([facility]) Hypoxia Leg | Occurrences starting | | | | | edema, left | 01/20/2020 until | | | | | Non-occlusive | 01/20/2020 | | | | | thrombus Poor | | | | | | social situation | | | | | | ESRD (end stage | | | | | | renal disease) on | | | | | | dialysis ([facility]) | | | | | | Anemia due to | | | | | | chronic kidney | | | | | | disease, on chronic | | | | | | dialysis ([facility]) | | | | | | Hypervolemia, | | | | | | unspecified | | | | | | hypervolemia type | | | | | | Essential | | | | | | hypertension Anemia | | | | | | due to end stage | | | | | | renal disease ([facility]) | | | | | | Secondary | | | | | | hyperparathyroidism | | | | | | ([facility]) Cellulitis of | | | | | | left lower | | | | | | extremity Diabetes | | | | | | mellitus type II, | | | | | | non insulin | | | | | | dependent - DIET | | | | | | Control | | | | | | Hypothyroidism, | | | | | | unspecified type | | | | | | Poor historian | | | | | | Gastroesophageal | | | | | | reflux disease, | | | | | | esophagitis presence | | | | | | not specified | | | | | | Pulmonary | | | | | | hypertension, mild | | | | | | (HCC) Arthritis | | | | | | History of blood | | | | | | clots Cancer (HCC) | | | | | | Heart disease | | | | | | Seasonal allergies | | | | | | Hyperlipidemia, | | | | | | unspecified | | | | | | hyperlipidemia type | | | | | | Depression, | | | | | | unspecified | | | | | | depression type | | | | | | Disorder of kidney | | | | | | and ureter 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 | | | | | | metabolism Facial | | | | | | cellulitis Left | | | | | | orbital abscess H/O | | | | | | LEFT [facility] - | | | | | | 2005 Orbital | | | | | | cellulitis on left | | | | | | Other secondary | | | | | | osteoarthritis of | | | | | | multiple sites | | | | | | Other chronic pain | | | | | | 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 | | | | | | (HCC) Marijuana use | | | | | | Chronic renal | | | | | | insufficiency, stage | | | | | | IV (severe) (HCC) | | | | | | Non-compliance | | | | | | probable Discitis of | | | | | | thoracic region | | | | | | Osteomyelitis of | | | | | | thoracic region | | | | | | (HCC) Pleural | | | | | | effusion, left | | | | | | Influenza A RBBB | | | | | | (right bundle branch | | | | | | block) | | + +------+--------+ + + + + +--------+ + + | Name | Type | Priori | Associated Diagnoses | Order Schedule | | | | ty | | | + + +--------+ + + | Referral to Home | Outpatient | Routin | ESRD on dialysis | Ordered: 01/20/2020 | | Health (not [facility] | Referral | e | ([facility]) Hypoxia Leg | | | Wall) | | | edema, left | | | | | | Non-occlusive | | | | | | thrombus Poor | | | | | | social situation | | | | | | ESRD (end stage | | | | | | renal disease) on | | | | | | dialysis ([facility]) | | | | | | Anemia due to | | | | | | chronic kidney | | | | | | disease, on chronic | | | | | | dialysis ([facility]) | | | | | | Hypervolemia, | | | | | | unspecified | | | | | | hypervolemia type | | | | | | Essential | | | | | | hypertension Anemia | | | | | | due to end stage | | | | | | renal disease ([facility]) | | | | | | Secondary | | | | | | hyperparathyroidism | | | | | | ([facility]) Cellulitis of | | | | | | left lower | | | | | | extremity Diabetes | | | | | | mellitus type II, | | | | | | non insulin | | | | | | dependent - DIET | | | | | | Control | | | | | | Hypothyroidism, | | | | | | unspecified type | | | | | | Gastroesophageal | | | | | | reflux disease, | | | | | | esophagitis presence | | | | | | not specified | | | | | | Heart disease | | | | | | Hyperlipidemia, | | | | | | unspecified | | | | | | hyperlipidemia type | | | | | | Depression, | | | | | | unspecified | | | | | | depression type | | | | | | Other secondary | | | | | | osteoarthritis of | | | | | | multiple sites | | | | | | Other chronic pain | | | | | | 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 | | | | | | ([facility]) Marijuana use | | | | | | Chronic renal | | | | | | insufficiency, stage | | | | | | IV (severe) ([facility]) | | | | | | Non-compliance | | | | | | probable Discitis of | | | | | | thoracic region | | | | | | Osteomyelitis of | | | | | | thoracic region | | | | | | ([facility]) Pleural | | | | | | effusion, left | | | | | | Influenza A RBBB | | | | | | (right bundle branch | | | | | | block) | | + + +--------+ + + documented as of this encounter Procedures + +--------+ + + + | Procedure Name | Priori | Date/Time | Associated Diagnosis | Comments | | | ty | | | | + +--------+ + + + | PERFORM HOME O2 | Routin | 01/20/2020 | | | | EVALUATION | e | 1:45 PM | | | | | | PDT | | | + +--------+ + + + | POC GLUCOSE | Routin | 01/20/2020 | | Results for this | | | e | 12:18 PM | | procedure are in the | | | | PDT | | results section. | + +--------+ + + + | POC GLUCOSE | Routin | 01/20/2020 | | Results for this | | | e | 6:35 AM | | procedure are in the | | | | PDT | | results section. | + +--------+ + + + | HEPATITIS C AB | Routin | 01/20/2020 | | Results for this | | | e | 4:11 AM | | procedure are in the | | | | PDT | | results section. | + +--------+ + + + | HEPATITIS B CORE AB, | Routin | 01/20/2020 | | Results for this | | TOTAL | e | 4:11 AM | | procedure are in the | | | | PDT | | results section. | + +--------+ + + + | HEPATITIS B SURFACE | Routin | 01/20/2020 | | Results for this | | AB | e | 4:11 AM | | procedure are in the | | | | PDT | | results section. | + +--------+ + + + | HEPATITIS B SURFACE | Routin | 01/20/2020 | | Results for this | | AG | e | 4:11 AM | | procedure are in the | | | | PDT | | results section. | + +--------+ + + + | PROTIME INR | Routin | 01/20/2020 | | Results for this | | | e | 4:11 AM | | procedure are in the | | | | PDT | | results section. | + +--------+ + + + | CBC NO DIFFERENTIAL | Routin | 01/20/2020 | | Results for this | | | e | 4:11 AM | | procedure are in the | | | | PDT | | results section. | + +--------+ + + + | PHOSPHORUS | Routin | 01/20/2020 | | Results for this | | | e | 4:11 AM | | procedure are in the | | | | PDT | | results section. | + +--------+ + + + | MAGNESIUM | Routin | 01/20/2020 | | Results for this | | | e | 4:11 AM | | procedure are in the | | | | PDT | | results section. | + +--------+ + + + | BASIC METABOLIC | Routin | 01/20/2020 | | Results for this | | PANEL | e | 4:11 AM | | procedure are in the | | | | PDT | | results section. | + +--------+ + + + | POC GLUCOSE | Routin | 01/19/2020 | | Results for this | | | e | 9:24 PM | | procedure are in the | | | | PDT | | results section. | + +--------+ + + + | POC GLUCOSE | Routin | 01/19/2020 | | Results for this | | | e | 5:42 PM | | procedure are in the | | | | PDT | | results section. | + +--------+ + + + | POC GLUCOSE | Routin | 01/19/2020 | | Results for this | | | e | 12:23 PM | | procedure are in the | | | | PDT | | results section. | + +--------+ + + + | POC GLUCOSE | Routin | 01/19/2020 | | Results for this | | | e | 6:36 AM | | procedure are in the | | | | PDT | | results section. | + +--------+ + + + | PROTIME INR | Routin | 01/19/2020 | | Results for this | | | e | 6:29 AM | | procedure are in the | | | | PDT | | results section. | + +--------+ + + + | CBC NO DIFFERENTIAL | Routin | 01/19/2020 | | Results for this | | | e | 6:29 AM | | procedure are in the | | | | PDT | | results section. | + +--------+ + + + | PROCALCITONIN, SERUM | Routin | 01/19/2020 | | Results for this | | | e | 4:10 AM | | procedure are in the | | | | PDT | | results section. | + +--------+ + + + | IRON AND TRANSFERRIN | Add-On | 01/19/2020 | | Results for this | | | | 4:10 AM | | procedure are in the | | | | PDT | | results section. | + +--------+ + + + | PHOSPHORUS | Routin | 01/19/2020 | | Results for this | | | e | 4:10 AM | | procedure are in the | | | | PDT | | results section. | + +--------+ + + + | MAGNESIUM | Routin | 01/19/2020 | | Results for this | | | e | 4:10 AM | | procedure are in the | | | | PDT | | results section. | + +--------+ + + + | FERRITIN | Add-On | 01/19/2020 | | Results for this | | | | 4:10 AM | | procedure are in the | | | | PDT | | results section. | + +--------+ + + + | BASIC METABOLIC | Routin | 01/19/2020 | | Results for this | | PANEL | e | 4:10 AM | | procedure are in the | | | | PDT | | results section. | + +--------+ + + + | POC GLUCOSE | Routin | 01/18/2020 | | Results for this | | | e | 10:48 PM | | procedure are in the | | | | PDT | | results section. | + +--------+ + + + | CT LOWER EXTREMITY | KYLIE | 01/18/2020 | | Results for this | | WO CONTRAST LEFT | | 9:25 PM | | procedure are in the | | | | PDT | | results section. | + +--------+ + + + | CULTURE, MRSA | Routin | 01/18/2020 | | Results for this | | | e | 8:58 PM | | procedure are in the | | | | PDT | | results section. | + +--------+ + + + | COVID-19 STAT | STAT | 01/18/2020 | | | | INSTRUCTION TO | | 6:56 PM | | | | [facility] ONLY | | PDT | | | + +--------+ + + + | CORONAVIRUS | STAT | 01/18/2020 | | Results for this | | (COVID-19) NAAT | | 6:56 PM | | procedure are in the | | | | PDT | | results section. | + +--------+ + + + | CT CHEST WO CONTRAST | KYLIE | 01/18/2020 | | Results for this | | | | 5:36 PM | | procedure are in the | | | | PDT | | results section. | + +--------+ + + + | VAS LOWER EXTREMITY | KYLIE | 01/18/2020 | | Results for this | | VENOUS LEFT | | 4:56 PM | | procedure are in the | | | | PDT | | results section. | + +--------+ + + + | XR CHEST AP PORTABLE | STAT | 01/18/2020 | | Results for this | | | | 4:06 PM | | procedure are in the | | | | PDT | | results section. | + +--------+ + + + | TROPONIN I | STAT | 01/18/2020 | | Results for this | | | | 3:52 PM | | procedure are in the | | | | PDT | | results section. | + +--------+ + + + | SEDIMENTATION RATE | Add-On | 01/18/2020 | | Results for this | | | | 3:52 PM | | procedure are in the | | | | PDT | | results section. | + +--------+ + + + | CBC WITH | STAT | 01/18/2020 | | Results for this | | DIFFERENTIAL | | 3:52 PM | | procedure are in the | | | | PDT | | results section. | + +--------+ + + + | B TYPE NATRIURETIC | STAT | 01/18/2020 | | Results for this | | PEPTIDE | | 3:52 PM | | procedure are in the | | | | PDT | | results section. | + +--------+ + + + | PTT | STAT | 01/18/2020 | | Results for this | | | | 3:51 PM | | procedure are in the | | | | PDT | | results section. | + +--------+ + + + | PROTIME INR | STAT | 01/18/2020 | | Results for this | | | | 3:51 PM | | procedure are in the | | | | PDT | | results section. | + +--------+ + + + | C-REACTIVE PROTEIN | Add-On | 01/18/2020 | | Results for this | | | | 3:51 PM | | procedure are in the | | | | PDT | | results section. | + +--------+ + + + | COMPREHENSIVE | STAT | 01/18/2020 | | Results for this | | METABOLIC PANEL | | 3:51 PM | | procedure are in the | | | | PDT | | results section. | + +--------+ + + + | ECG 12 LEAD | STAT | 01/18/2020 | | Results for this | | | | 3:44 PM | | procedure are in the | | | | PDT | | results section. | + +--------+ + + + documented in this encounter Results POC Glucose (01/20/2020 12:18 PM PDT) + +---------+ + + + | Component | Value | Ref Range | Performed | Pathologist | | | | | At | Signature | + +---------+ + + + | Glucose, | 143 (H) | 70 - 109 [...] [address] | [place] | [phone] | | [facility] | | [address] | | | - LABORATORY | | | | + + + + + POC Glucose (01/20/2020 6:35 AM PDT) + +-------+ + + + | Component | Value | Ref Range | Performed | Pathologist | | | | | At | Signature | + +-------+ + + + | Glucose, | 101 | 70 - 109 mg/dL | [facility] [...] [address] | [place] | [phone] | | [facility] | | [address] | | | - LABORATORY | | | | + + + + + Magnesium (01/20/2020 4:11 AM PDT) + +-------+ + + + | Component | Value | Ref Range | Performed | Pathologist | | | | | At | Signature | + +-------+ + + + | Magnesium | 1.8 | 1.6 - 2.6 mg/dL | [facility] [...] [address] | [place] | [phone] | | [facility] | | [address] | | | - LABORATORY | | | | + + + + + Protime INR (01/20/2020 4:11 AM PDT) + + + + + + | Component | Value | Ref Range | Performed | Pathologist | | | | | At | Signature | + + + + + + | Prothrombin | 16.0 (H) | 11.3 - 13.9 | [facility] [...] [address] | [place] | [phone] | | [facility] | | [address] | | | - LABORATORY | | | | + + + + + CBC no Differential (01/20/2020 4:11 AM PDT) + + + + + + | Component | Value | Ref Range | Performed | Pathologist | | | | | At | Signature | + + + + + + | White Blood | 6.7 | 4.0 - 11.0 K/uL | [facility] | | | Cells | | | [facility] | | | | | | MEDICAL | | | | | | CENTER - | | | | | | LABORATORY | | + + + + + + | Red Blood | 2.96 (L) | 3.70 - 5.20 | [facility] | | | Cells | | M/uL | [facility] | | | | | | MEDICAL | | | | | | CENTER - | | | | | | LABORATORY | | + + + + + + | Hemoglobin | 8.0 (L) | 11.5 - 16.0 | [facility] | | | | | g/dL | [facility] | | | | | | MEDICAL | | | | | | CENTER - | | | | | | LABORATORY | | + + + + + + | Hematocrit | 26.8 (L) | 34.0 - 47.0 % | [...] + + + + | MCH | 27.0 (L) | 28.0 - 35.0 pg | [facility] [...] + + + + | RDW-CV | 17.2 (H) | <15.0 % | [facility] | | | | | [facility] | | | | | | MEDICAL | | | | | | CENTER - | | | | | | LABORATORY | | + + + + + + | RDW-SD | 56.8 (H) | 35.1 - 46.3 fL | [facility] | | | | | | [facility] | | | | | | MEDICAL | | | | | | CENTER - | | | | | | LABORATORY | | + + + + + + | Platelet | 347 | 140 - 440 K/uL | [facility] | | | Count | | | [facility] | | | | | | MEDICAL | | | | | | CENTER - | | | | | | LABORATORY | | + + + + + + | MPV | 9.2 | 6.5 - 12.4 fL | [facility] [...] + | [facility] | [address] | [place] | [phone] | | [facility] | | [address] | | | - LABORATORY | | | | + + + + + Basic Metabolic Panel (01/20/2020 4:11 AM PDT) + + + + [...] Cl | 96 (L) | 98 - 107 mmol/L | [...] + + + + | Glucose | 102 | 60 - 106 mg/dL | [facility] | | | | | [facility] | | | | | | MEDICAL | | | | | | CENTER - | | | | | | LABORATORY | | + + + + + + | BUN | 33 (H) | 9 - 23 mg/dL | [facility] | | | | | | [facility] | | | | | | MEDICAL | | | | | | CENTER - | | | | | | LABORATORY | | + + + + + + | Creatinine | 3.84 (H) | 0.55 - 1.02 | [facility] [...] | mL/min/1.73m2 | [facility] | | | [facility] | RATE,ESTIMATED | | MEDICAL | | | | mL/min/1.51m5Ifjl than | | CENTER - | | [...] + + + + | Calcium | 8.9 | 8.7 - 10.4 | [facility] | | | | | mg/dL | [facility] | | | | | | MEDICAL | | | | | | CENTER - | | | | | | LABORATORY | | + + + + + + | BUN/Creatin | 8.6 | | [facility] | | | ine [...] ST. | [address] | [place], [place] | [phone] | | [facility] | | [address] | | | - LABORATORY | | | | + + + + + Hepatitis B Surface Ag (01/20/2020 4:11 AM PDT) + + + + [...] + + | Performed at: 01 - [facility] [place] [address], | REFERENCE LAB | | [place], [place] [id number] Commissioner Of Relocation Services: Ernie Lee MD, Phone: | [facility] | | [phone] | | + + + + + + + + | Performing | Address | City/State/Zipcode | Phone Number | | Organization | | | | + + + + + | REFERENCE LAB | [address] | [place], [place] | [phone] | | [facility] | [place] | [address] | | + + + + + Phosphorus (01/20/2020 4:11 AM PDT) + +---------+ + + + | Component | Value | Ref Range | Performed | Pathologist | | | | | At | Signature | + +---------+ + + + | Phosphorus | 6.5 (H) | 2.4 - 5.1 mg/dL | [...] [address] | [place] | [phone] | | [facility] | | [address] | | | - LABORATORY | | | | + + + + + Hepatitis B Surface Ab (01/20/2020 4:11 AM PDT) + + + + + + | Component | Value | Ref Range | Performed | Pathologist | | | | | At | Signature | + + + + + + | Hepatitis B | Non ReactiveComment: | | REFERENCE | | | Surface | Non | | LAB [facility] | | | Antibody | Reactive: Inconsistent | | - [facility] | | | Qual | with immunity, | | | | | | | | | | | | less than 10 | | | | | | mIU/mL | | | | | | Reactive: | | | | | | Consistent with | | | | | | immunity, | | | | | | | | | | | | greater than 9.9 | | | | | | mIU/mL | | | | + + + + + + + + | Specimen | + + | Blood | + + + + + | Narrative | Performed At | + + + | Performed at: 01 - [facility] [address], | REFERENCE LAB | | [place], [place] [id number] Commissioner Of Relocation Services: Ernie Lee MD, Phone: | [facility] | | [phone] | | + + + + + + + + | Performing | Address | City/State/Zipcode | Phone Number | | Organization | | | | + + + + + | REFERENCE LAB | [address] | [place], [place] | [phone] | | [facility] | [facility] | [address] | | + + + + + Hepatitis B Core Ab, Total (01/20/2020 4:11 AM PDT) + + + + [...] + | Performed at: 01 - [facility] [place] [address], | REFERENCE LAB | | [place], [place] [id number] Commissioner Of Relocation Services: Ernie Lee MD, Phone: | [facility] | | [phone] | | + + + + + + + + | Performing | Address | City/State/Zipcode | Phone Number | | Organization | | | | + + + + + | REFERENCE LAB | [address] | [place], [place] | [phone] | | [facility] | [place] | [address] | | + + + + + Hepatitis C Ab (01/20/2020 4:11 AM PDT) + + + + + + | Component | Value | Ref Range | Performed | Pathologist | | | | | At | Signature | + + + + + + | Hepatitis C | <0.1Comment: | 0.0 - 0.9 s/co | REFERENCE | | | Ab | | ratio | LAB [facility] | | | | | | [facility] | | | | Negative: < 0.8 | | | | | | | | | | | | | | | | | | Indeterminate: 0.8 - 0.9 | | | | | | | | | | | | | | | | | | Positive: > 0.9 | | | | | | The [facility] recommends that | | | | | | a positive HCV antibody | | | | | | result be followed up | | | | | | with a HCV Nucleic Acid | | | | | | Amplification test | | | | | | ([id number]). | | | | + + + + + + + + | Specimen | + + | Blood | + + + + + | Narrative | Performed At | + + + | Performed at: 01 - [facility] [address], | REFERENCE LAB | | [place], [place] [id number] Commissioner Of Relocation Services: Ernie Lee MD, Phone: | [facility] | | [phone] | | + + + + + + + + | Performing | Address | City/State/Zipcode | Phone Number | | Organization | | | | + + + + + | REFERENCE LAB | [address] | [place], [place] | [phone] | | [facility] | Drive [facility] | [address] | | + + + + + POC Glucose (01/19/2020 9:24 PM PDT) + +---------+ + + + [...] [address] | [place] | [phone] | | [facility] | | [address] | | | - LABORATORY | | | | + + + + + POC Glucose (01/19/2020 5:42 PM PDT) + +---------+ + + + | Component | Value | Ref Range | Performed | Pathologist | | | | | At | Signature | + +---------+ + + + | Glucose, | 134 (H) | 70 - 109 mg/dL | [...] [address] | [place] | [phone] | | [facility] | | [address] | | | - LABORATORY | | | | + + + + + POC Glucose (01/19/2020 12:23 PM PDT) + +---------+ + + + | Component | Value | Ref Range | Performed | Pathologist | | | | | At | Signature | + +---------+ + + + | Glucose, | 119 (H) | 70 - 109 mg/dL | [...] [address] | [place] | [phone] | | [facility] | | [address] | | | - LABORATORY | | | | + + + + + POC Glucose (01/19/2020 6:36 AM PDT) + +-------+ + + + [...] [address] | [place] | [phone] | | [facility] | | [address] | | | - LABORATORY | | | | + + + + + Protime INR (01/19/2020 6:29 AM PDT) + + + + + + | Component | Value | Ref Range | Performed | Pathologist | | | | | At | Signature | + + + + + + | Prothrombin | 16.8 (H) | 11.3 - 13.9 | [facility] [...] + | [facility] | [address] | [place] | [phone] | | [facility] | | [address] | | | - LABORATORY | | | | + + + + + CBC no Differential (01/19/2020 6:29 AM PDT) + + + + + [...] + + + | Red Blood | 3.11 (L) | 3.70 - 5.20 | [facility] | | | Cells | | M/uL | [facility] | | | | | | MEDICAL | | | | | | CENTER - | | | | | | LABORATORY | | + + + + + + | Hemoglobin | 8.4 (L) | 11.5 - 16.0 | [facility] | | | | | g/dL | [facility] | | | | | | MEDICAL | | | | | | CENTER - | | | | | | LABORATORY | | + + + + + + | Hematocrit | 28.0 (L) | 34.0 - 47.0 % | [...] + + + + | MCH | 27.0 (L) | 28.0 - 35.0 pg | [facility] | | | | | | [facility] | | | | | | MEDICAL | | | | | | CENTER - | | | | | | LABORATORY | | + + + + + + | MCHC | 30.0 (L) | 32.0 - 36.0 | [facility] [...] + + + + | RDW-SD | 56.3 (H) | 35.1 - 46.3 fL | [facility] | | | | | | [facility] | | | | | | MEDICAL | | | | | | CENTER - | | | | | | LABORATORY | | + + + + + + | Platelet | 351 | 140 - 440 K/uL | [facility] | | | Count | | | [facility] | | | | | | MEDICAL | | | | | | CENTER - | | | | | | LABORATORY | | + + + + + + | MPV | 9.3 | 6.5 - 12.4 fL | [facility] [...] ST. | [address] | [place] | [phone] | | [facility] | | [address] | | | - LABORATORY | | | | + + + + + Ferritin (01/19/2020 4:10 AM PDT) + + + + + + | Component | Value | Ref Range | Performed | Pathologist | | | | | At | Signature | + + + + + + | FERRITIN | 1,216 (H) | 7 - 271 ng/mL | [...] [address] | [place] | [phone] | | [facility] | | [address] | | | - LABORATORY | | | | + + + + + Iron and Transferrin (01/19/2020 4:10 AM PDT) + + + + + + | Component | Value | Ref Range | Performed | Pathologist | | | | | At | Signature | + + + + + + | Iron | 21 (L) | 50 - 170 ug/dL | [facility] | | | | | | [facility] | | | | | | MEDICAL | | | | | | CENTER - | | | | | | LABORATORY | | + + + + + + | TRANSFERRIN | 139.0 (L) | 250.0 - 380.0 | [facility] | | | | | mg/dL | [facility] | | | | | | MEDICAL | | | | | | CENTER - | | | | | | LABORATORY | | + + + + + + | TIBC | 195 (L) | 235 - 425 ug/dL | [facility] | | | | | | [facility] | | | | | | MEDICAL | | | | | | CENTER - | | | | | | LABORATORY | | + + + + + + | % | 10.8 (L) | 15.0 - 50.0 % | [...] [address] | [place] | [phone] | | [facility] | | [address] | | | - LABORATORY | | | | + + + + + Magnesium (01/19/2020 4:10 AM PDT) + +-------+ + + + | Component | Value | Ref Range | Performed | Pathologist | | | | | At | Signature | + +-------+ + + + | Magnesium | 1.9 | 1.6 - 2.6 mg/dL | [facility] [...] + | [facility] | [address] | [place] | [phone] | | [facility] | | [address] | | | - LABORATORY | | | | + + + + + Basic Metabolic Panel (01/19/2020 4:10 AM PDT) + + + + + + | Component | Value | Ref Range | Performed | Pathologist | | | | | At | Signature | + + + + + + | Na | 136 | 136 - 145 | [facility] | [...] Cl | 96 (L) | 98 - 107 mmol/L | [facility] | | | | | | [facility] | | | | | | MEDICAL | | | | | | CENTER - | | | | | | LABORATORY | | + + + + + + | CO2 | 31 | 20 - 31 mmol/L | [facility] [...] + + | Glucose | 84 | 60 - 106 mg/dL | [facility] | | | | | | [facility] | | | | | | MEDICAL | | | | | | CENTER - | | | | | | LABORATORY | | + + + + + + | BUN | 50 (H) | 9 - 23 mg/dL | [facility] | | | | | | [facility] | | | | | | MEDICAL | | | | | | CENTER - | | | | | | LABORATORY | | + + + + + + | Creatinine | 5.04 (H) | 0.55 - 1.02 | [facility] | | | | | mg/dL | [facility] | | | | | | MEDICAL | | | | | | CENTER - | | | | | | LABORATORY | | + + + + + + | eGFR if not | 8 (L)Comment: GLOMERULAR | >=60 | [facility] | | | | FILTRATION | mL/min/1.73m2 | [facility] | | | [facility] | RATE,ESTIMATED | | MEDICAL | | | | mL/min/1.77s3Heiz than | | CENTER - | | [...] | 8.8 | 8.7 - 10.4 | [facility] | | | | | mg/dL | [facility] | | | | | | MEDICAL | | | | | | CENTER - | | | | | | LABORATORY | | + + + + + + | BUN/Creatin | 9.9 | | [facility] | | | ine [...] [address] | [place] | [phone] | | [facility] | | [address] | | | - LABORATORY | | | | + + + + + Phosphorus (01/19/2020 4:10 AM PDT) + + + + + + | Component | Value | Ref Range | Performed | Pathologist | | | | | At | Signature | + + + + + + | Phosphorus | 9.1 ()Comment: | 2.4 - 5.1 mg/dL | [facility] | | | | Critical Result called | | [facility] | | | | to and read back by | | MEDICAL | | | | Kristin Reynolds on | | CENTER - | | | | 01/19/2020 at 6:51 AM by | | LABORATORY | | [...] + | [facility] | [address] | [place] | [phone] | | [facility] | | [address] | | | - LABORATORY | | | | + + + + + Procalcitonin (01/19/2020 4:10 AM PDT) + + + + + + | Component | Value | Ref Range | Performed | Pathologist | | | | | At | Signature | + + + + + + | Procalciton | 0.27 | <=0.50 ng/mL | [facility] | | [...] [address] | [place] | [phone] | | [facility] | | [address] | | | - LABORATORY | | | | + + + + + POC Glucose (01/18/2020 10:48 PM PDT) + +---------+ + + + | Component | Value | Ref Range | Performed | Pathologist | | | | | At | Signature | + +---------+ + + + | Glucose, | 261 (H) | 70 - 109 mg/dL | [...] + | [facility] | [address] | [place] | [phone] | | [facility] | | [address] | | | - LABORATORY | | | | + + + + + CT Lower Extremity Left wo contrast (01/18/2020 9:25 PM PDT) + + | Specimen | + + | | + + + + + | Impressions | Performed At | + + + | Extensive subcutaneous edema/anasarca throughout all visualized soft | [facility] | | tissues, compatible with fluid overload when coupled with partial | | | visualization of the right lower extremity as well as CT chest | | | findings from same day. No subcutaneous emphysema to suggest | | | necrotizing fasciitis at this time. No fluid collection to | | | suggest abscess at this time. 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 COMPARISON: 01/18/2020 | | | PROCEDURE: Thin cut axial slice CT imaging was performed. The | | | left lower extremity at the level of the femur through the mid foot. | | | Intravenous contrast was not administered. FINDINGS: Extensive | | | subcutaneous edema/anasarca throughout all visualized soft tissues, | | | compatible with fluid overload when coupled with partial visualization | | | of the right lower extremity as well as CT chest findings from same | | | day. Widespread cellulitis cannot be entirely excluded but thought | | | less likely. No subcutaneous emphysema to suggest necrotizing | | | fasciitis at this time. Extensive circumferential calcified plaque is | | | seen throughout all vascular structures with likely multiple areas | | | of severe stenosis. Diffuse fatty atrophy throughout the visualized | | | bilateral lower extremity musculature. No suspicious lymphadenopathy | | | identified. Small left knee joint effusion. No fluid collection to | | | suggest abscess at this time. Severe intertarsal and tarsometatarsal | | | joint degenerative changes and prominent subchondral cystic changes. | | | Diffuse osteopenia. 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 The left lowerextremity at the level of | | the femur through the mid foot. Intravenous contrastwas not | | administered.FINDINGS:Extensive subcutaneous edema/anasarca throughout all visualized | | soft tissues,compatible with fluid overload when coupled with partial visualization of | | theright lower extremity as well as CT chest findings from same day. | | Widespreadcellulitis cannot be entirely excluded but thought less likely. No | | subcutaneousemphysema to suggest necrotizing fasciitis at this time. | | Extensivecircumferential calcified plaque is seen throughout all vascular structures | | withlikely multiple areas of severe stenosis. Diffuse fatty atrophy throughout | | thevisualized bilateral lower extremity musculature. No suspicious | | lymphadenopathyidentified. Small left knee joint effusion. No fluid collection to | | suggestabscess at this time. Severe intertarsal and tarsometatarsal joint | | degenerativechanges and prominent subchondral cystic changes. Diffuse osteopenia. | | IMPRESSION: Extensive subcutaneous edema/anasarca throughout all visualized soft | | tissues,compatible with fluid overload when coupled with partial visualization of | | theright lower extremity as well as CT chest findings from same day. No subcutaneous | | emphysema to suggest necrotizing fasciitis at this time. No fluid collection to suggest | | abscess at this time. Dictated and Signed by: Itz Madsen MD Electronically signed: | | 01/18/2020 9:55 PM | |changes and prominent subchondral cystic changes. Diffuse osteopenia. | | | |IMPRESSION: | |Extensive subcutaneous edema/anasarca throughout all visualized soft tissues, | |compatible with fluid overload when coupled with partial visualization of the | |right lower extremity as well as CT chest findings from same day. | | | | No subcutaneous emphysema to suggest necrotizing fasciitis at this time. | | | |No fluid collection to suggest abscess at this time. | | | |Dictated and Signed by: Itz Madsen MD | | Electronically signed: 01/18/2020 9:55 PM | + + + +---------+ + + | Performing | Address | City/State/Zipcode | Phone Number | | Organization | | | | + +---------+ + + | [facility] | | | | + +---------+ + + Culture, MRSA (01/18/2020 8:58 PM PDT) + + + + + [...] ST. | [address] | [place] | [phone] | | [facility] | | [id number] | | | - LABORATORY | | | | + + + + + [facility] STAT instructions for COVID-19 tracking (01/18/2020 6:56 PM PDT) + +-------+ + + + | Component | Value | Ref Range | Performed | Pathologist | | | | | At | Signature | + +-------+ + + + | [facility] | | | [facility] | | | COVID STAT | | | | | | instruction | | | | | + +-------+ + + + + + | Specimen | + + | Tissue - Entire | | nasopharynx (body | | structure) | + + + +---------+ + + | Performing | Address | City/State/Zipcode | Phone Number | | Organization | | | | + +---------+ + + | [facility] | | | | + +---------+ + + Coronavirus (COVID-19) NAAT (01/18/2020 6:56 PM PDT) + + + + + + | Component | Value | Ref Range | Performed | Pathologist | | | | | At | Signature | + + + + + + | SARS-CoV-2, | Not Detected | Not Detected | [facility] | | | NAAT | | | | | | (COVID-19) | | | | | + + + + + + + + | Specimen | + + | Tissue - Entire | | nasopharynx (body | | structure) | + + + + + | Narrative | Performed At | + + + | See Scanned | [facility] | | Report | | + + + + +---------+ + + | Performing | Address | City/State/Zipcode | Phone Number | | Organization | | | | + +---------+ + + | [facility] | | | | + +---------+ + + CT Chest wo Contrast (01/18/2020 5:36 PM PDT) + + | Specimen | + + | | + + + + + | Impressions | Performed At | + + + | Cardiomegaly, pulmonary artery enlargement/hypertension, and | [facility] | | evidence of pulmonary edema with small pleural effusions. | | | Loculated left pleural effusion in this patient with history of | | | empyema with extensive consolidation/pneumonia throughout the left | | | lung. Enlarged mediastinal lymph nodes likely are reactive. 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 Dictated and Signed by: Itz Madsen MD | | | Electronically signed: 01/18/2020 6:04 PM | | + + + + + + | Narrative | Performed At | + + + | CT CHEST WO CONTRAST 01/18/2020 5:36 PM HISTORY: Chest pain or | [facility] | | SOB, pleurisy or effusion suspected left sided empyema. | | | COMPARISON: 10/30/2019 PROTOCOL: Axial images of the chest were | | | obtained. Coronal and sagittal reformations were acquired. | | | FINDINGS: Scattered diffuse interstitial thickening. Mosaic | | | attenuation ground glass pattern throughout both lungs. Trachea and | | | central bronchi are generally patent. There are a few areas of | | | questionable mild endobronchial debris and diffuse endobronchial | | | opacification in the left lower lobe; however, this is significantly | | | improved since prior CT. Extensive consolidation of the left upper | | | and lower lobes. New patchy groundglass opacities throughout the right | | | lung. Small right pleural effusion. Similar moderate likely | | | loculated left pleural effusion. Heart is enlarged. Severe coronary | | | artery calcifications. Mitral annular calcification. Multiple | | | enlarged mediastinal lymph nodes. Right breast skin thickening is | | | unchanged. Evidence of prior left mastectomy. Likely diffuse | | | anasarca. Extensive aortic calcifications. 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 Fusiform enlargement of the | | | pulmonary arteries measure 4.0 cm. Mild sliding-type hiatal hernia. | | | Multiple bilateral rib fracture deformities. Interval likely | | | worsening acute on chronic discitis/osteomyelitis at T11-T12. | | + + + + + | Procedure Note | + + | Julian, Rad Results In - 01/18/2020 6:[address] CHEST WO CONTRAST 01/18/2020 5:36 PM | | | | HISTORY: Chest pain or SOB, pleurisy or effusion suspected | | left sided empyema. | | | | COMPARISON: 10/30/2019 | | | | PROTOCOL: Axial images of the chest were obtained. Coronal and sagittal | | reformations were acquired. | | | | FINDINGS: | | Scattered diffuse interstitial thickening. Mosaic attenuation ground glass | | pattern throughout both lungs. Trachea and central bronchi are generally patent. | | There are a few areas of questionable mild endobronchial debris and diffuse | | endobronchial opacification in the left lower lobe; however, this is | | significantly improved since prior CT. Extensive consolidation of the left upper | | and lower lobes. New patchy groundglass opacities throughout the right lung. | | Small right pleural effusion. Similar moderate likely loculated left pleural | | effusion. Heart is enlarged. Severe coronary artery calcifications. Mitral | | annular calcification. Multiple enlarged mediastinal lymph nodes. Right breast | | skin thickening is unchanged. Evidence of prior left mastectomy. Likely diffuse | | anasarca. Extensive aortic calcifications. Likely severe stenosis of the origin | | of the left subclavian artery. Fusiform enlargement of the pulmonary arteries | | measure 4.0 cm. Mild sliding-type hiatal hernia. Multiple bilateral rib fracture | | deformities. Interval likely worsening acute on chronic discitis/osteomyelitis | | at T11-T12. | | | | IMPRESSION: | | Cardiomegaly, pulmonary artery enlargement/hypertension, and evidence of | | pulmonary edema with small pleural effusions. | | | | Loculated left pleural effusion in this patient with history of empyema with | | extensive consolidation/pneumonia throughout the left lung. | | | | Enlarged mediastinal lymph nodes likely are reactive. | | | | Interval likely worsening acute on chronic discitis/osteomyelitis at T11-T12. | | | | Dictated and Signed by: Itz Madsen MD | | Electronically signed: 01/18/2020 6:04 PM | + + + +---------+ + + | Performing | Address | City/State/Zipcode | Phone Number | | Organization | | | | + +---------+ + + | [facility] | | | | + +---------+ + + VAS Lower Extremity Venous Left (01/18/2020 4:56 PM PDT) + + | Specimen | + + | | + + + + + | Impressions | Performed At | + + + | No evidence for DVT. Echogenic and chronic appearing | [facility] | | calcification/thrombus is noted in the left greater saphenous vein. | | | Diffuse subcutaneous edema is noted throughout the left medial calf | | | soft tissues. Dictated and Signed by: Itz Madsen MD | | | Electronically signed: 01/18/2020 5:29 PM | | + + + + + + | Narrative | Performed At | + + + | VAS LOWER EXTREMITY VENOUS LEFT 01/18/2020 4:04 PM HISTORY: left | [facility] | | leg swelling and edema asymmetric compared to the right. | | | COMPARISON: 10/02/2017 PROTOCOL: Choi scale and Doppler images of | | | the lower extremity veins. FINDINGS: The left common femoral, | | | profunda femoral, superficial femoral, and popliteal veins | | | demonstrate normal flow, augmentation, and compression. Echogenic and | | | chronic appearing peripheral calcification/thrombus is noted in the | | | proximal left greater saphenous vein. | | + + + + + | Procedure Note | + + | Julian, Rad Results In - 01/18/2020 5:32 PM PDT VAS LOWER EXTREMITY VENOUS LEFT | | 01/18/2020 4:04 PM HISTORY: left leg swelling and edema asymmetric compared to the | | right.COMPARISON: 10/02/2017PROTOCOL: Choi scale and Doppler images of the lower | | extremity veins.FINDINGS:The left common femoral, profunda femoral, superficial femoral, | | and poplitealveins demonstrate normal flow, augmentation, and compression. Echogenic | | andchronic appearing peripheral calcification/thrombus is noted in the proximalleft | | greater saphenous vein.IMPRESSION: No evidence for DVT.Echogenic and chronic appearing | | calcification/thrombus is noted in the leftgreater saphenous vein.Diffuse subcutaneous | | edema is noted throughout the left medial calf softtissues.Dictated and Signed by: Itz | | MD Cale Electronically signed: 01/18/2020 5:29 PM | |veins demonstrate normal flow, augmentation, and compression. Echogenic and | |chronic appearing peripheral calcification/thrombus is noted in the proximal | |left greater saphenous vein. | | | |IMPRESSION: | |No evidence for DVT. | | | |Echogenic and chronic appearing calcification/thrombus is noted in the left | |greater saphenous vein. | | | |Diffuse subcutaneous edema is noted throughout the left medial calf soft | |tissues. | | | |Dictated and Signed by: Itz Madsen MD | | Electronically signed: 01/18/2020 5:29 PM | + + + +---------+ + + | Performing | Address | City/State/Zipcode | Phone Number | | Organization | | | | + +---------+ + + | [facility] | | | | + +---------+ + + XR Chest AP Portable (01/18/2020 4:06 PM PDT) + + | Specimen | + + | | + + + + + | Impressions | Performed At | + + + | Pleural effusion, atelectasis/consolidation throughout the left lung | [facility] | | is slightly improved when compared to 10/30/2019 but remains severe. | | | Slightly worsened right perihilar interstitial thickening and a | | | small amount of fluid or atelectasis along the right major fissure. | | | Dictated and Signed by: Itz Madsen MD Electronically | | | signed: 01/18/2020 5:34 PM | | + + + + + + | Narrative | Performed At | + + + | XR CHEST AP PORTABLE 01/18/2020 4:06 PM HISTORY: LEG PAIN. | [facility] | | COMPARISON: 10/30/2019 Findings: Consolidation throughout the left | | | lung with only minimal aeration. Patchy opacification involving the | | | right perihilar soft tissues with diffuse interstitial thickening. | | | Linear airspace disease in the right midlung. No evidence of | | | pneumothorax. Aortic likely large left pleural effusion | | | calcifications are seen. Heart is enlarged. No acute osseous findings | | | identified. | | + + + + + | Procedure Note | + + | Julian, Rad Results In - 01/18/2020 5:37 PM PDT XR CHEST AP PORTABLE 01/18/2020 4:06 PM | | | | HISTORY: LEG PAIN. | | | | COMPARISON: 10/30/2019 | | | | Findings: Consolidation throughout the left lung with only minimal aeration. | | Patchy opacification involving the right perihilar soft tissues with diffuse | | interstitial thickening. Linear airspace disease in the right midlung. No | | evidence of pneumothorax. Aortic likely large left pleural effusion | | calcifications are seen. Heart is enlarged. No acute osseous findings | | identified. | | | | IMPRESSION: | | Pleural effusion, atelectasis/consolidation throughout the left lung is slightly | | improved when compared to 10/30/2019 but remains severe. | | | | Slightly worsened right perihilar interstitial thickening and a small amount of | | fluid or atelectasis along the right major fissure. | | | | Dictated and Signed by: Itz Madsen MD | | Electronically signed: 01/18/2020 5:34 PM | + + + +---------+ + + | Performing | Address | City/State/Zipcode | Phone Number | | Organization | | | | + +---------+ + + | [facility] | | | | + +---------+ + + Sedimentation Rate (01/18/2020 3:52 PM PDT) + +--------+ + + + | Component | Value | Ref Range | Performed | Pathologist | | | | | At | Signature | + +--------+ + + + | Erythrocyte | 78 (H) | <30 mm/hr | [facility] | | | | [...] [address] | [place] | [phone] | | [facility] | | [address] | | | - LABORATORY | | | | + + + + + Troponin I (01/18/2020 3:52 PM PDT) + + + + + + | Component | Value | Ref Range | Performed | Pathologist | | | | | At | Signature | + + + + + + | Troponin I | 0.20 (H)Comment: | <0.06 ng/mL | [facility] | | | | Comment:Reference | | [facility] | | | | Ranges: 0.00-0.06 = [...] | | | | | | [employer] | | | | | [...] + | [facility] | [address] | [place] | [phone] | | [facility] | | [address] | | | - LABORATORY | | | | + + + + + CBC with Differential (01/18/2020 3:52 PM PDT) + + + + + + | Component | Value | Ref Range | Performed | Pathologist | | | | | At | Signature | + + + + + + | White Blood | 7.4 | 4.0 - 11.0 K/uL | [facility] [...] + + + + | Hemoglobin | 8.2 (L) | 11.5 - 16.0 | [facility] | | | | | g/dL | [facility] | | | | | | MEDICAL | | | | | | CENTER - | | | | | | LABORATORY | | + + + + + + | Hematocrit | 26.8 (L) | 34.0 - 47.0 % | [...] + + + + | MCH | 27.6 (L) | 28.0 - 35.0 pg | [facility] | | | | | | [facility] | | | | | | MEDICAL | | | | | | CENTER - | | | | | | LABORATORY | | + + + + + + | MCHC | 30.6 (L) | 32.0 - 36.0 | [facility] [...] + + + + | RDW-SD | 57.3 (H) | 35.1 - 46.3 fL | [facility] | | | | | | [facility] | | | | | | MEDICAL | | | | | | CENTER - | | | | | | LABORATORY | | + + + + + + | Platelet | 369 | 140 - 440 K/uL | [facility] [...] + + + + | % | 75.1 | 45.0 - 82.0 % | [facility] | | | Neutrophils | | | [facility] | | | | | | MEDICAL | | | | | | CENTER - | | | | | | LABORATORY | | + + + + + + | % | 17.7 (L) | 20.0 - 45.0 % | [...] + + + + | Absolute | 5.52 | 1.80 - 8.50 | [facility] | [...] | Absolute | 0.09 | 0.00 - 0.40 | [facility] | | | Eosinophils | | K/uL | [facility] | | | | | | MEDICAL | | | | | | CENTER - | | | | | | LABORATORY | | + + + + + + | Absolute | 0.06 | 0.00 - 0.10 | [facility] | | | Basophils | | K/uL | [facility] | | | | | | MEDICAL | | | | | | CENTER - | | | | | | LABORATORY | | + + + + + + | Absolute | 0.03 | 0.00 - 0.03 | [facility] | | | Immature | | K/uL | [facility] | | | Granulocyte | | [...] + + + | Absolute | 0.02 (H)Comment: | 0.00 - 0.01 | [facility] | | | nRBC | Presence of any NRBC's | K/uL | [facility] | | | | in adults is clinically | | MEDICAL | | | | significant. | | CENTER - | | | [...] ST. | [address] | [place], [place] | [phone] | | [facility] | | [address] | | | - LABORATORY | | | | + + + + + B Type Natriuretic Peptide (01/18/2020 3:52 PM PDT) + + + + + + | Component | Value | Ref Range | Performed | Pathologist | | | | | At | Signature | + + + + + + | BNP | >5000 (H)Comment: New | <100 pg/mL | [facility] | | | | method in use as of | | [facility] | | | | November 09, 2018. [...] [address] | [place] | [phone] | | [facility] | | [address] | | | - LABORATORY | | | | + + + + + C-Reactive Protein (01/18/2020 3:51 PM PDT) + + + + + + | Component | Value | Ref Range | Performed | Pathologist | | | | | At | Signature | + + + + + + | CRP | 68.50 (H) | <10.00 mg/L | [facility] | | | | [...] [address] | [place] | [phone] | | [facility] | | [address] | | | - LABORATORY | | | | + + + + + PTT (01/18/2020 3:51 PM PDT) + +-------+ + + + | Component | Value | Ref Range | Performed | Pathologist | | | | | At | Signature | + +-------+ + + + | aPTT | 36 | 22 - 36 seconds | [facility] | | | | [...] [address] | [place] | [phone] | | [facility] | | [address] | | | - LABORATORY | | | | + + + + + Devinime INR (01/18/2020 3:51 PM PDT) + + + + + + | Component | Value | Ref Range | Performed | Pathologist | | | | | At | Signature | + + + + + + | Prothrombin | 16.3 (H) | 11.3 - 13.9 | [facility] | | | Time | | seconds | [facility] | | | | [...] + | [facility] | [address] | [place] | [phone] | | [facility] | | [address] | | | - LABORATORY | | | | + + + + + Comprehensive Metabolic Panel (01/18/2020 3:51 PM PDT) + + + + + [...] + + + + | K | 5.5 (H) | 3.4 - 5.1 | [facility] | | | | | mmol/L | [facility] | | | | | | MEDICAL | | | | | | CENTER - | | | | | | LABORATORY | | + + + + + + | Cl | 94 (L) | 98 - 107 mmol/L | [facility] | | | | | | [facility] | | | | | | MEDICAL | | | | | | CENTER - | | | | | | LABORATORY | | + + + + + + | CO2 | 31 | 20 - 31 mmol/L | [facility] [...] + + + + | Glucose | 195 (H) | 60 - 106 mg/dL | [...] + + + + | Creatinine | 4.69 (H) | 0.55 - 1.02 | [facility] [...] mL/min/1.73m2 | [facility] | | | [facility] | RATE,ESTIMATED | | MEDICAL | | | | mL/min/1.01l6Zono than | | CENTER - | | [...] | 8.8 | 8.7 - 10.4 | [facility] | | | | | mg/dL | [facility] | | | | | | MEDICAL | | | | | | CENTER - | | | | | | LABORATORY | | + + + + + + | Albumin | 3.4 | 3.2 - 4.8 g/dL | [facility] [...] + + + + | Total | 8.2 | 5.7 - 8.2 g/dL | [facility] | | | Protein | | | [facility] | | | | | | MEDICAL | | | | | | CENTER - | | | | | | LABORATORY | | + + + + + + | AST | 42 (H) | 0 - 34 U/L | [facility] | | | | | | [facility] | | | | | | MEDICAL | | | | | | CENTER - | | | | | | LABORATORY | | + + + + + + | ALT | 25 | 10 - 49 U/L | [facility] | | | | | | [facility] | | | | | | MEDICAL | | | | | | CENTER - | | | | | | LABORATORY | | + + + + + + | Alkaline | 108 | 46 - 116 U/L | [facility] | | | Phosphatase | | | [facility] | | | | | | MEDICAL | | | | | | CENTER - | | | | | | LABORATORY | | + + + + + + | Globulin | 4.8 (H) | 2.1 - 3.8 g/dL | [facility] | | | | | | [facility] | | | | | | MEDICAL | | | | | | CENTER - | | | | | | LABORATORY | | + + + + + + | Albumin/Shereen | 0.7 (L) | 0.8 - 1.9 | [facility] | | | bulin Ratio | | | [facility] | | [...] + | [facility] | [address] | [place] | [phone] | | [facility] | | [address] | | | - LABORATORY | | | | + + + + + ECG 12 lead (01/18/2020 3:44 PM PDT) + + + + + + | Component | Value | Ref Range | Performed | Pathologist | | | | | At | Signature | + + + + + + | VENTRICULAR | 76 | BPM | [facility] | | | RATE EKG | | | | | + + + + + + | ATRIAL RATE | 76 | BPM | [facility] | | + + + + + + | P-R | 134 | ms | [facility] | | | INTERVAL | | | | | + + + + + + | QRS | 152 | ms | [facility] | | | DURATION | | | | | + + + + + + | Q-T | 440 | ms | [facility] | | | INTERVAL | | | | | + + + + + + | Q-T | 495 | ms | [facility] | | | INTERVAL | | | | | | (CORRECTED) | | | | | + + + + + + | P WAVE AXIS | 75 | degrees | [facility] | | + + + + + + | QRS AXIS | 131 | degrees | [facility] | | + + + + + + | T AXIS | 57 | degrees | [facility] | | + + + + + + | INTERPRETAT | Normal sinus rhythmRight | | [facility] | | | ION TEXT | bundle branch blockLeft | | | | | | posterior fascicular | | | | | | blockAbnormal ECGWhen | | | | | | compared with ECG of | | | | | | 30-OCT-2019 | | | | | | 12:58,Criteria for | | | | | | Septal infarct are no | | | | | | longer presentConfirmed | | | | | | by KEN ELLISON MD | | | | | | ([id number]) on 01/19/2020 | | | | | | 6:23:18 AM | | | | + + [...] + | Diagnosis | + + | Cellulitis of left lower extremity - Primary Cellulitis and abscess of leg, except | | foot | + + | ESRD on dialysis (HCC) End stage renal disease | + + | Hypoxia Hypoxemia | + + | Leg edema, left Edema | + + | Non-occlusive thrombus Embolism and thrombosis of unspecified site | + + | Poor social situation Unspecified psychosocial circumstance | + + | ESRD (end stage renal disease) on dialysis (HCC) End stage renal disease | + + | Anemia due to chronic kidney disease, on chronic dialysis (HCC) | + + | Hypervolemia, unspecified hypervolemia type | + + | Essential hypertension Unspecified essential hypertension | + + | Anemia due to end stage renal disease (HCC) | + + | Secondary hyperparathyroidism (HCC) Secondary hyperparathyroidism (of renal origin) | + + | Diabetes mellitus type II, non insulin dependent - DIET Control Type II or | | unspecified type diabetes mellitus without mention of complication, not stated as | | uncontrolled | + + | Hypothyroidism, unspecified type | + + | Poor historian Other specified conditions influencing health status | + + | Gastroesophageal reflux disease, esophagitis presence not specified | + + | Pulmonary hypertension, mild (HCC) Other chronic pulmonary heart diseases | + + | Arthritis Arthropathy, unspecified, site unspecified | + + | History of blood clots Personal history of venous thrombosis and embolism | + + | Cancer (HCC) Other malignant neoplasm without specification of site | + + | Heart disease Heart disease, unspecified | + + | Seasonal allergies Allergic rhinitis, cause unspecified | + + | Hyperlipidemia, unspecified hyperlipidemia type | + + | Depression, unspecified depression type | + + | Disorder of kidney and ureter Unspecified disorder of kidney and ureter | + + | 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 | + + | Facial cellulitis Cellulitis and abscess of face | + + | Left orbital abscess Orbital cellulitis | + + | H/O LEFT Beast cancer - 2006 | + + | Orbital cellulitis on left Orbital cellulitis | + + | Other secondary osteoarthritis of multiple sites | + + | Other chronic pain | + + | Cerebral artery occlusion with cerebral infarction (HCC) Unspecified cerebral artery | | occlusion with cerebral infarction | + + | Marijuana use Cannabis abuse, unspecified | + + | Chronic renal insufficiency, stage IV (severe) (HCC) Chronic kidney disease, Stage IV | | (severe) | + + | Non-compliance Personal history of noncompliance with medical treatment, presenting | | hazards to health | + + | probable Discitis of thoracic region Other and unspecified disc disorder of thoracic | | region | + + | Osteomyelitis of thoracic region (HCC) | + + | Pleural effusion, left Unspecified pleural effusion | + + | Influenza A Influenza with other respiratory manifestations | + + | RBBB (right bundle branch block) Right bundle branch block | + + | HTN (hypertension) Unspecified essential hypertension | + + documented in this encounter Administered Medications + +--------+ +--------+------+------+ | Medication Order | MAR | Action | Dose | Rate | Site | | | Action | Date | | | | + +--------+ +--------+------+------+ | acetaminophen (TYLENOL) tablet | Given | 01/19/20 | 650 mg | | | | 650 mg 650 mg, Oral, EVERY 4 | | 20 4:18 | | | | | HOURS PRN, Pain, or fever >= 38.6 | | AM PDT | | | | | C (101.5 F), Starting [facility] 01/18/20 | | | | | | | at 2130 | | | | | | + +--------+ +--------+------+------+ + +---+ | | | + +---+ | albumin 25% IVPB 12.5 g 12.5 | | | g, Intravenous, Administer over | | | 60 Minutes, PRN, PRN | | | hypotension., Starting 01/19/20 | | | at 0704, For BP less than 90. | | | Dialysis use only., Dialysis, | | | Indications: Hemodialysis | | | Procedure | | + +---+ | | | + +---+ + +-------+ +-------+---+---+ | amLODIPine (NORVASC) tablet 10 | Given | 01/20/20 | 10 mg | | | | mg 10 mg, Oral, 2 TIMES DAILY, | | 20 10:55 | | | | | First dose (after last | | AM PDT | | | | | modification) on 01/20/20 at | | | | | | | 0900 | | | | | | + +-------+ +-------+---+---+ +---+---+ | | | +---+---+ + +-------+ +------+---+---+ | amLODIPine (NORVASC) tablet 5 | Given | 01/19/20 | 5 mg | | | | mg 5 mg, Oral, 2 TIMES DAILY, | | 20 9:25 | | | | | First dose on [facility] 01/18/20 at 2230 | | PM PDT | | | | + +-------+ +------+---+---+ +-------+ +------+---+---+ | Given | 01/19/20 | 5 mg | | | | | 20 9:42 | | | | | | AM PDT | | | | +-------+ +------+---+---+ | Given | 01/18/20 | 5 mg | | | | | 20 10:49 | | | | | | PM PDT | | | | +-------+ +------+---+---+ + +---+ | | | + +---+ | calcium acetate (PHOSLO) | | | capsule 1,334 mg 1,334 mg, Oral, | | | 3 TIMES DAILY WITH MEALS, First | | | dose (after last modification) on | | | 01/20/20 at 1700 | | + +---+ | | | + +---+ + +-------+ +--------+---+---+ | calcium acetate (PHOSLO) | Given | 01/20/20 | 667 mg | | | | capsule 667 mg 667 mg, Oral, 3 | | 20 11:01 | | | | | TIMES DAILY WITH MEALS, First | | AM PDT | | | | | dose on Wed01/19/20 at 1200 | | | | | | + +-------+ +--------+---+---+ +-------+ +--------+---+---+ | Given | 01/19/20 | 667 mg | | | | | 20 7:13 | | | | | | PM PDT | | | | +-------+ +--------+---+---+ +---+---+ | | | +---+---+ + +-------+ + +---+---+ | calcium carbonate (TUMS) | Given | 01/20/20 | 1,000 mg | | | | chewable tablet 1,000 mg 1,000 | | 20 10:56 | | | | | mg, Oral, EVERY 4 HOURS PRN, | | AM PDT | | | | | Indigestion, Starting 01/20/20 | | | | | | | at 0800 | | | | | | + +-------+ + +---+---+ +---+---+ | | | +---+---+ + +---------+ +-----+-------+---+ | cefTRIAXone (ROCEPHIN) 2 g in | New Bag | 01/19/20 | 2 g | 100 | | | sodium chloride 0.9% 50 mL IVPB | | 20 3:34 | | mL/hr | | | 2 g, Intravenous, Administer over | | PM PDT | | | | | 30 Minutes, EVERY 24 HOURS | | | | | | | (Daily), First dose on Dian 01/18/20 | | | | | | | at 2014, Activate system and mix | | | | | | | before use., Indications: | | | | | | | NON-PURULENT SKIN AND SOFT TISSUE | | | | | | | INFECTION | | | | | | + +---------+ +-----+-------+---+ +---------+ +-----+-------+---+ | New Bag | 01/18/20 | 2 g | 100 | | | | 20 9:01 | | mL/hr | | | | PM PDT | | | | +---------+ +-----+-------+---+ +---+---+ | | | +---+---+ + +---------+ +---------+---+ + | cloNIDine (CATAPRES) 0.2 mg/24 | Patch | 01/20/20 | 1 patch | | Chest-Ri | | hr 1 patch 1 patch, Transdermal, | Applied | 20 1:41 | | | ght | | WEEKLY, First dose on 01/20/20 | | PM PDT | | | Anterior | | at 1215 | | | | | | + +---------+ +---------+---+ + + +---+ | | | + +---+ | dextrose 10% (D10W) infusion | | | at 50 mL/hr, Intravenous, | | | CONTINUOUS PRN, hypoglycemia, | | | Starting Dian 01/18/20 at 2130, | | | Start infusion if unable [...] | | | Low Blood Sugar, Starting Dian | | | 01/18/20 at 2130, For blood glucose | | | 50-69 mg/dl - give 12.5 g For | | | blood glucose less than 50 mg/dl | | | - give 25 g, | | + +---+ | | | + +---+ + +-------+ +---------+---+ + | epoetin karthik-epbx (RETACRIT) | Given | 01/19/20 | 10,000 | | Abdomen- | | 10,000 units/mL injection 10,000 | | 20 9:29 | Units | | RLQ | | Units 10,000 Units, | | PM PDT | | | | | Subcutaneous, THREE TIMES WEEKLY | | | | | | | (Once per day on Wed), | | | | | | | First dose on Wed01/19/20 at 2100, | | | | | | | Keep in refrigerator. Do not | | | | | | | shake., ESRD-related (i.e. | | | | | | | dialysis) indication? Yes | | | | | | + +-------+ +---------+---+ + +---+---+ | | | +---+---+ + +-------+ +--------+---+---+ | fentaNYL (PF) injection 25 mcg | Given | 01/20/20 | 25 mcg | | | | 25 mcg, Intravenous, EVERY 3 | | 20 6:56 | | | | | HOURS PRN, Pain, Severe Pain, | | AM PDT | | | | | Starting Dian 01/18/20 at 2130 | | | | | | + +-------+ +--------+---+---+ +-------+ +--------+---+---+ | Given | 01/20/20 | 25 mcg | | | | | 20 2:18 | | | | | | AM PDT | | | | +-------+ +--------+---+---+ | Given | 01/19/20 | 25 mcg | | | | | 20 9:20 | | | | | | PM PDT | | | | +-------+ +--------+---+---+ +---+---+ | | | +---+---+ + +-------+ +--------+---+---+ | fentaNYL (PF) injection 50 mcg | Given | 01/18/20 | 50 mcg | | | | 50 mcg, Intravenous, EVERY 30 | | 20 8:55 | | | | | MIN PRN, Pain, Starting Dian | | PM PDT | | | | | 01/18/20 at 1743, For 3 doses | | | | | | + +-------+ +--------+---+---+ +-------+ +--------+---+---+ | Given | 01/18/20 | 50 mcg | | | | | 20 5:56 | | | | | | PM PDT | | | | +-------+ +--------+---+---+ + +---+ | | | + +---+ | ferric gluconate (FERRLECIT) | | | 125 mg in sodium chloride 0.9% | | | 100 mL IVPB 125 mg, Intravenous, | | | Administer over 1 Hours, DAILY, | | | First dose on [facility] 01/20/20 at 2100, | | | For 4 doses | | + +---+ | | | + +---+ + +-------+ +--------+---+---+ | furosemide (LASIX) tablet 160 | Given | 01/20/20 | 160 mg | | | | mg 160 mg, Oral, 2 TIMES DAILY, | | 20 10:54 | | | | | First dose on [facility] 01/18/20 at 2230 | | AM PDT | | | | + +-------+ +--------+---+---+ +-------+ +--------+---+---+ | Given | 01/19/20 | 160 mg | | | | | 20 9:25 | | | | | | PM PDT | | | | +-------+ +--------+---+---+ | Given | 01/19/20 | 160 mg | | | | | 20 9:42 | | | | | | AM PDT | | | | +-------+ +--------+---+---+ +---+---+ | | | +---+---+ + +-------+ +--------+---+---+ | gabapentin (NEURONTIN) capsule | Given | 01/20/20 | 100 mg | | | | 100 mg 100 mg, Oral, DAILY, | | 20 1:41 | | | | | First dose on 01/20/20 at 1200 | | PM PDT | | | | + +-------+ +--------+---+---+ + +---+ | | | + +---+ | gabapentin (NEURONTIN) capsule | | | 100 mg 100 mg, Oral, DAILY PRN, | | | Supplemental dose to be taken | | | after dialysis run, Starting Sat | | | 01/20/20 at 1135 | | + +---+ | | | + +---+ + +-------+ +-------+---+---+ | heparin 1,000 units/mL | Given | 01/19/20 | 500 | | | | injection 500 Units 500 Units, | | 20 8:12 | Units | | | | Intravenous, WITH EACH DIALYSIS, | | AM PDT | | | | | Starting 01/19/20 at 0704, | | | | | | | Dialysis | | | | | | + +-------+ +-------+---+---+ +---+---+ | | | +---+---+ + +-------+ +--------+---+ + | heparin 5,000 units/mL | Given | 01/20/20 | 5,000 | | Abdomen- | | injection 5,000 Units 5,000 | | 20 11:01 | Units | | RLQ | | Units, Subcutaneous, EVERY 12 | | AM PDT | | | | | HOURS (2 times per day), First | | | | | | | dose on Dian 01/18/20 at 2200 | | | | | | + +-------+ +--------+---+ + +-------+ +--------+---+ + | Given | 01/19/20 | 5,000 | | Abdomen- | | | 20 9:26 | Units | | LLQ | | | PM PDT | | | | +-------+ +--------+---+ + | Given | 01/18/20 | 5,000 | | Abdomen- | | | 20 10:56 | Units | | RLQ | | | PM PDT | | | | +-------+ +--------+---+ + +---+---+ | | | +---+---+ + +---------+ + +---------+---+ | heparin in half-normal saline | New Bag | 01/19/20 | 200 | 2 mL/hr | | | 100 units/mL infusion 200 | | 20 8:09 | Units/hr | | | | Units/hr (2 mL/hr), at 2 mL/hr, | | AM PDT | | | | | Intravenous, CONTINUOUS, Starting | | | | | | | 01/19/20 at 0730, Dialysis | | | | | | + +---------+ + +---------+---+ +---+---+ | | | +---+---+ + +-------+ +-------+---+---+ | hydrALAZINE (APRESOLINE) | Given | 01/19/20 | 10 mg | | | | injection 10 mg 10 mg, | | 20 11:41 | | | | | Intravenous, EVERY 4 HOURS PRN, | | AM PDT | | | | | sbp > 160, hold for HR > 90, | | | | | | | Starting Dian 01/18/20 at 2217 | | | | | | + +-------+ +-------+---+---+ +---+---+ | | | +---+---+ + +-------+ +---------+---+ + | insulin lispro (humaLOG | Given | 01/18/20 | 4 Units | | Abdomen- | | KWIKPEN) injection (pen) 0-12 | | 20 10:51 | | | LLQ | | Units 0-12 Units, Subcutaneous, | | PM PDT | | | | | 4 TIMES DAILY WITH MEALS & | | | | | | | NIGHTLY, First dose on Dian 01/18/20 | | | | | | | at 2200, CORRECTION SCALE: | | | | | | | Blood Glucose (BG) < 150: | | | | | | | None BG 150-200: DAY: 2 | | | | | | | units. NIGHT: 0 units BG | | | | | | | 201-250: DAY: 4 units. NIGHT: | | | | | | | 2 units BG 251-300: DAY: 6 | | | | | | | units. NIGHT: 4 units BG | | | | | | | 301-350: DAY: 8 units. NIGHT: | | | | | | | 6 units BG 351-400: DAY: 10 | | | | | | | units. NIGHT: 8 units BG > 400 | | | | | | | : DAY: 12 units. NIGHT: 10 | | | | | | | units | | | | | | | AND CALL PROVIDER , Use DAY DOSE | | | | | | | for doses scheduled: AC, | | | | | | | NPO, Daytime [phone] Use NIGHT | | | | | | | DOSE for doses scheduled: | | | | | | | HS, Nighttime [phone] If the | | | | | | | BG is not checked before the | | | | | | | patient starts eating, do not | | | | | | | give correction insulin., | | | | | | + +-------+ +---------+---+ + +---+---+ | | | +---+---+ + +-------+ +-------+---+---+ | labetalol (TRANDATE) 5 mg/mL | Given | 01/19/20 | 20 mg | | | | injection 20 mg 20 mg, | | 20 12:14 | | | | | Intravenous, EVERY 4 HOURS PRN, | | PM PDT | | | | | sbp > 160, hold for HR < 60, | | | | | | | Starting [facility] 01/18/20 at 2216 | | | | | | + +-------+ +-------+---+---+ +---+---+ | | | +---+---+ + +-------+ +--------+---+---+ | levothyroxine (SYNTHROID) | Given | 01/20/20 | 75 mcg | | | | tablet 75 mcg 75 mcg, Oral, | | 20 6:33 | | | | | DAILY BEFORE BREAKFAST, First | | AM PDT | | | | | dose on Wed01/19/20 at 0730, Give | | | | | | | before breakfast., | | | | | | + +-------+ +--------+---+---+ +-------+ +--------+---+---+ | Given | 01/19/20 | 75 mcg | | | | | 20 6:40 | | | | | | AM PDT | | | | +-------+ +--------+---+---+ +---+---+ | | | +---+---+ + +-------+ +------+---+ + | lidocaine (PF) 1% injection 1 | Given | 01/19/20 | 1 mL | | Other | | mL 1 mL, Intradermal, DIALYSIS - | | 20 8:13 | | | (Comment | | PRN, cannulation, Starting Fri | | AM PDT | | | ) | | 01/19/20 at 0704, Dialysis | | | | | | + +-------+ +------+---+ + +---+---+ | | | +---+---+ + +-------+ +--------+---+---+ | olopatadine (PATANOL) 0.1% | Given | 01/20/20 | 1 drop | | | | ophthalmic solution 1-2 drop 1-2 | | 20 11:00 | | | | | drop, Both Eyes, 2 TIMES DAILY, | | AM PDT | | | | | First dose on [facility] 01/18/20 at 2200 | | | | | | + +-------+ +--------+---+---+ +-------+ +---------+---+ + | Given | 01/19/20 | 2 drops | | Eye-Both | | | 20 9:31 | | | | | | PM PDT | | | | +-------+ +---------+---+ + | Given | 01/19/20 | 2 drops | | | | | 20 8:23 | | | | | | AM PDT | | | | +-------+ +---------+---+ + +---+---+ | | | +---+---+ + +-------+ +-------+---+---+ | pantoprazole (PROTONIX) DR | Given | 01/20/20 | 40 mg | | | | tablet 40 mg 40 mg, Oral, DAILY | | 20 6:33 | | | | | BEFORE BREAKFAST, First dose on | | AM PDT | | | | | 01/19/20 at 0730, Do not cut or | | | | | | | crush., Indication: GERD | | | | | | + +-------+ +-------+---+---+ +-------+ +-------+---+---+ | Given | 01/19/20 | 40 mg | | | | | 20 6:40 | | | | | | AM PDT | | | | +-------+ +-------+---+---+ + +---+ | | | + +---+ | sodium chloride 0.9% (NS) | | | infusion at 100 mL/hr, | | | Intravenous, EVERY 30 MIN PRN, | | | PRN hypotension, Starting Fri | | | 01/19/20 at 0704, May administer 4 | | | doses/24 hours. For BP less than | | | 90. Dialysis use only, Dialysis | | + +---+ | | | + +---+ + +---------+ +-----+--------+---+ | vancomycin 1 g in sodium | New Bag | 01/18/20 | 1 g | 166.7 | | | chloride 0.9% 250 mL IVPB 1 g, | | 20 10:59 | | mL/hr | | | Intravenous, Administer over 90 | | PM PDT | | | | | Minutes, ONCE, Dian 01/18/20 at | | | | | | | 2024, For 1 dose, Activate system | | | | | | | and mix before use., | | | | | | | Indications: SKIN AND SOFT TISSUE | | | | | | | ABSCESS | | | | | | + +---------+ +-----+--------+---+ +---+---+ | | | +---+---+ documented in this encounter Additional Health Concerns [...]
--- OUTSIDE RECORDS SUMMARY | ~2020-03-21 | XMS | Encounter Summary ---
Demographics + + + | Address | [address] | | | [place] [address] | + + + | Home Phone [...] | Author | [facility] | | | and [place] | + + + | Organization | [facility] | | | and [place] | + + + | Address | Unknown | + + + | Phone | Unavailable | + + + Support + + + + + | Name | Relationship | Address | Phone | + + + + + | India Tilley | ECON | [phone] | | | | | [place], [place] | | | | | [address] | | + + + + + [...] + +------+ + | Care Director Of Adult Epilepsy Name | Role | Phone | + +------+ + PCP | Unavailable | + +------+ + Encounter Details +--------+ + + + + | Date | Type | Department | Care Team | Description | +--------+ + + + + | 02/03/ | Hospital | [facility] | Scott Koroma, | Closed fracture of | | 2019 | Encounter | [facility] | [address] | neck of right femur, | | | | [address] [place] | [place], [place] | initial encounter | | | | [place] | [id number] | (HCC); Right hip | | | | [address] | | pain; H/O major | | | | [phone] | | orthopedic surgery | +--------+ + + + + [...] XR HIP RIGHT 2-3 | Routin | 02/03/2019 | Closed fracture of | Results for this | | VIEWS | e | 10:39 AM | neck of right | procedure are in the | | | | PDT | femur, initial | results section. | | | | | encounter ([facility]) | | | | | | Right hip pain H/O | | | | | | major orthopedic | | | | | | surgery | | + +--------+ + + + [...]
--- OUTSIDE RECORDS SUMMARY | ~2020-03-21 | XMS | Encounter Summary ---
Demographics + + + | Address | [address] | | | [place] [address] | + + + | Home Phone [...] | Author | [facility] | | | and [place] | + + + | Organization | [facility] | | | and [place] | + + + | Address | Unknown | + + + | Phone | Unavailable | + + + Support + + + + + | Name | Relationship | Address | Phone | + + + + + | India Tilley | ECON | [id number] | | | | | [place], [place] | | | | | [address] | | + + + + + [...] Team Providers + +------+ + | Care Greens Laborer Name | Role | Phone | + +------+ + PCP | Unavailable | + +------+ + Encounter Details +--------+ + + + + | Date | Type | Department | Care Team | Description | +--------+ + + + + | 06/23/ | [facility] | [facility] | Patricia, | | | 2006 - | Encounter | [facility] | Venkatesh Forte MD [address] | | | | CENTER [address] | [place] | | | 07/13/ | | [place] | [place] [id number] | | | 2006 | | [address] | [phone] | | | | | [phone] | | | +--------+ + + + [...]
--- OUTSIDE RECORDS SUMMARY | ~2020-03-21 | XMS | Encounter Summary ---
Demographics + + + | Address | [address] | | | [place] [address] | + + + | Home Phone [...] Author | [facility] | | | and [place] | + + + | Organization | [facility] | | | and [place] | + + + | Address | Unknown | + + + | Phone | Unavailable | + + + Support + + + + + | Name | Relationship | Address | Phone | + + + + + | India Tilley | ECON | [phone] | | | | | [place], [place] | | | | | [address] | | + + + + + [...] Team Providers + +------+ + | Care Doctor Naturopathic Name | Role | Phone | + +------+ + PCP | Unavailable | + +------+ + Encounter Details +--------+ + + + + | Date | Type | Department | Care Team | Description | +--------+ + + + + | 10/01/ | Abstract | [facility] | Chidi Cummins MD | Other iron | | 2016 | | OTOLARYNGOLOGY [address] | [address] | deficiency anemia | | | | [address] | [address] [place] | (Primary Dx); | | | | [place], [place] | [place] [address] | Arthritis; Other | | | | [address] | [phone] | back pain; History | | | | [phone] | | of blood clots; | | [...]
--- OUTSIDE RECORDS SUMMARY | ~2020-03-21 | XMS | Encounter Summary ---
Demographics + + + | Address | [address] | | | [place] [address] | + + + | Home Phone [...] + | Author | [facility] | | | and [place] | + + + | Organization | [facility] | | | and [place] | + + + | Address | Unknown | + + + | Phone | Unavailable | + + + Support + + + + + | Name | Relationship | Address | Phone | + + + + + | India Tilley | [place]CON | [phone] | | | | | [place], [place] | | | | | [address] | | + + + + + [...] Providers + +------+ + | Care Fire Protection Fabricator Name | Role | Phone | + +------+ + PCP | Unavailable | + +------+ + Reason for Visit + +--------+ + | Reason | Onset | Comments | | | Date | | + +--------+ + | Nephrology | 10/06/ | | | Appointment | 2018 | | + +--------+ + Encounter Details +--------+ + + + + | Date | Type | Department | Care Team | Description | +--------+ + + + + | 10/06/ | Telephone | [facility] [place] | Gopi Muñoz | Nephrology | | 2018 | | NEPHROLOGY [address] | M, DO [address] | Appointment | | | | [address] | [address] [place] | | | | | [place], [place] | [place] [address] | | | | | [address] | [phone] | | | | | [phone] | | | +--------+ + + + [...] this encounter Miscellaneous Notes Telephone Encounter - Daisha Yoon - 10/06/2017 9:42 AM TAYI contacted Rach at [facility] about getting a referral sent over for Estefani Nixon for her appoint ment with Dr. Muñoz on WednesdayNovember 08 at 4:30. I gave her our call back number and as ked her to give us a call back. 9:4 5 AM PSTdocumented in this encounter Plan of Treatment Not on filedocumented as of this encounter Visit Diagnoses Not on filedocumented in this encounter"
--- OUTSIDE RECORDS SUMMARY | ~2020-03-21 | XMS | Encounter Summary ---
Demographics + + + | Address | [address] | | | [place] [address] | + + + | Home Phone [...] | Author | [facility] | | | and Kamaljitana | + + + | Organization | [facility] | | | and [place] | + + + | Address | Unknown | + + + | Phone | Unavailable | + + + Support + + + + + | Name | Relationship | Address | Phone | + + + + + | India Tilley | ECON | [phone] | | | | | [place], [place] | | | | | [address] | | + + + + + [...] + + + + + | Lisa Ferd | ECON | Unknown | | + + + + + Care Team Providers + +------+ + | Care Deposit Refund Clerk Name | Role | Phone | + +------+ + PCP | Unavailable | + +------+ + Encounter Details +--------+ + + + + | Date | Type | Department | Care Team | Description | +--------+ + + + + | 01/04/ | [facility] | [facility] | Santos Stephenson | Decreased glomerular | | 2018 | Encounter | MED CTR OR INTRA OP | MD Kinga, FACS [address] | filtration rate | | | | [address] | [place] | (GFR) | | | | [place] | [place] [address] | | | | | [address] | [phone] | | | | | [phone] | | | +--------+ + + + [...] what medicines and drugsyou take. This includes xtkt-ypj-mbe nter medicines, herbs, supplements, alcohol or other [...] 24 hours after surgery, have a trusted [facility] member or spouse act on your behalf. Avoid alcohol. Havea responsible adultstay with you.He or shecan watch for problems and help ke ep you safe. Date Last Reviewed: 08/13/201619995990-3932 [employer]. [address] [place] [address]. All righ ts reserved. This information is not intended as a substitute for professional medical care. Always follow your healthcare professional's instructions. [facility] POST-OP INSTRUCTIONS: Arterio-Venous Fistula 1. Keep the [...] documented as of this encounter H&P Notes Santos Stephenson MD, FACS - 01/04/2018 12:57 PM PDTFormatting of this note might be diff erent from the original. [facility] [place] SURGICAL INTERIM HISTORY AND PHYSICAL UPDATE Pt. Name/Age/: Estefani Tilley 72 y.o. 1945 Date of admission: 01/04/2018 The current H&P was reviewed. The patient was reexamined. Re-evaluation of the patient co nfirms the necessity for the scheduled procedure. No change has occurred in the patient s condition since the H&P was completed less than 30 days ago. LABS: Lab Results Component Value Date NA 135 (L) 11/09/2017 K 3.2 (L) 11/09/2017 CL 99 11/09/2017 CO2 27 11/09/2017 BUN 29 (H) 11/09/2017 CREA 2.99 (H) 11/09/2017 Lab Results Component Value Date WBC 7.6 01/04/2018 HGB 13.6 01/04/2018 HCT 41.4 01/04/2018 MCV 89.5 01/04/2018 PLT 177 01/04/2018 Lab Results Component Value Date INR 0.96 01/04/2018 INR 1.02 10/01/2017 PROTIME 12.7 01/04/2018 PROTIME 13.3 10/01/2017 PHYSICIAN'S VERIFICATION OF INFORMED CONSENT The patient was counseled regarding the procedure, its indications, risks, potential compli cations and alternatives and any questions were answered. Consent was obtained. Patient stat es her tunneled catheter worked well yesterday. I called [facility] and confirmed catheter worked well. Considering this, I will not Change the catheter. Jus t do the arm fistula creation. PHYSICIAN'S VERIFICATION OF INFORMED CONSENT FOR BLOOD TRANSFUSION There is not a reasonable possibility that blood transfusion will be necessary as a result of the patient's procedure. Electronically signed by: Santos Stephenson, 01/04/2018 12:57 [facility] ield, Reynold Donato MD, FACS - 12/30/2017 10:00 AM PDTFormatting of this note might be different from e original. Surgery Note Referring Provider: Gopi Muñoz [...] ? Francisca Womack PA-C Who is your Academic Department Chair/Kidney Specialist ? Dr. Muñoz When was the [...] dialysis on Wednesday, Wednesday and Fridays in [place]. She states she has had breast cancer, had a LEFT side mastectomy. CARDIAC: Denies ME, chest pain or tightness. RISK: Never smoker, current 38 year diabetic. Family Hx of diabetes. States mother had kid cedric failure NICO: Patient has previously been diagnosed with sleep apnea. She had a sleep study performe d at [facility] but does not wear a [...] Placement; Surgeon: Nora Leo MD; Location : [facility] MAIN OR Allergies Allergen Reactions Lisinopril [...] REPORT: PATIENT NAME : Estefani Tilley EQUIPMENT: [employer] M-Turbo with 10-5 mHertz probe. INDICATIONS: Dialysis access [...] Stephenson MD, FACS Vascular and General Surgery Kinga Hong am acting as a scribe on behalf of, and in the presence of Santos kulkarni MD, FACS. I have reviewed and edited this note. Karena Hong CMA 12/30/17 King[place], Santos Stephenson MD, FACS, personally performed the services described in this docume ntation, as scribed by Karena Hong CMA in my presence, and it is both accurate and complet e. Karena Hong CMA 12/30/2017 10:45 CC: Francisca Womack PA-C, Gopi Muñoz DO documented i n this encounter Miscellaneous Notes Op Note - Santos Stephenson MD, RHONA - 01/04/2018 3:54 [place] Pt. Name/Age/: Estefani Tilley 72 y.o. 1945 Med. Record Number: [id number] Date of admission: 01/04/2018 Date of Operation/Procedure: 01/04/2018 Preoperative Diagnosis: Chronic kidney disease, stage V (HCC) (N18.5) Surgeon: Santos Stephenson MD, FACS Anesthesia Provider(s): Anesthesiologist: Mitchell Iverson MD; Lyndsay Mckeon DO Anesthesia Type: RIGHt arm block with General Procedure(s): Creation of AV fistula Right Transposion of Basilic Vein Operative Indications: Estefani Tilley is a 72 y.o. year old female who presents with renal failure, now on dialysis via tunneled right dialysis catheter. The patient was consen rich And agreed to proceed. Operative Findings: Basilic vein approximately 4-6 mm. Proximal radial artery approximate ly 2 mm. Operation: In the Same Day Surgery area, the patient was identified as Estefani Tilley and the procedure was confirmed as stated above. The correct right arm was marked with m y initials with felt pen. The Nurse confirmed identity of patient and procedure. Anesthesi a proceeded with placement of arm block. The patient was brought to the OR and placed in the supine position. Ultrasound was used to mirella the location of arteries and veins in the arm. Following the induction of adequate general anesthesia, the right arm was prepped with Chloroprep and draped in the usual diandra rile fashion. The patient received appropriate prophylactic perioperative antibiotics. Paulo guerra comprehensive surgical pause: The patient was identified as Estefani britton shad the procedure was confirmed as stated above. A vertical right arm incision was made over the basilic vein in the upper medial arm. T he basilic vein was dissected out up to the axilla. All tributaries were ligated with 3-0 V icryl. Care was taken to avoid injury to the associated nerves. A vertical incision was made in the upper medial forearm. The underlying brachial artery w as dissected out at its bifurcation into radial and ulnar branches. Overlying small veins w ere ligated. Marcaine 0.25% with epinephrine was infiltrated in the anterior upper arm. The [place] tunnel er was passed subcutaneous in the anterior upper arm. The patient was heparinized (5000 uni ts). After a 3 minute circulation time the basilic vein was divided distally. The basilic vein was carefully passed through the [place] tunneler, keeping orientation correct. The vein was then sutured to the proximal radial artery using 6-0 Prolene. Anastomosis was hemostati c. Excellent thrill was noted. The left radial pulse was 1+. Doppler confirmed good flow patterns at the radial, ulnar, palmar arch, and digital arteries. Careful wound hemostasis was obtained. The wound was closed over a 10 mm round Jairo drain. Subcutaneous tissue lyudmila roximated with 3-0 Vicryl, skin with 4-0 Vicryl. Guaze and Tegaderm dressing was placed. Patient was extubated and taken to [facility] in stable condition. Estimated Blood Loss: 5 mL Transfused: no Drains: 10 mm round Jairo drain. Specimen (s): * No specimens in log * Complications: none Disposition/condition: PACU, hemodynamically stable Electronically Signed by: Santos Stephenson MD, FACS, 01/04/2018 15:55 [facility] documented i n this encounter Plan of [...] | | | | | PDT | ([facility]) (N18.5) | | + [...] + | [facility] | [address] | [place] | [phone] | | [facility] | | [address] | | | - LABORATORY | | [...] [address] | [place] | [phone] | | [facility] | | [address] | | | - LABORATORY | | [...] [address] | [place] | [phone] | | [facility] | | [address] | | | - LABORATORY | | | | + + + + + CBC with Differential (01/04/2018 11:52 AM PDT) + + + + + + | Component | Value | Ref Range | Performed | Pathologist | | | | | At | Signature | + + + + + + | White Blood | 7.6 | 4.0 - 11.0 K/uL | [facility] | | | Cells | | | [facility] | | | | | | MEDICAL | | | | | | CENTER - | | | | | | LABORATORY | | + + + + + + | Red Blood | 4.63 | 3.70 - 5.20 | [...] | | | Eosinophils | | | STMarianela MULTANI | | [...] + | [facility] | [address] | [place] | [phone] | | [facility] | | [address] | | | - LABORATORY | | [...] not | 16 (L)Comment: | >=60 | [facility] | | | | GLOMERULAR FILTRATION | mL/min/1.73m2 | [facility] | | | [place] | RATE,ESTIMATED | | MEDICAL | | | | mL/min/1.29k1Fgnb than | | CENTER - | | [...] ST. | [address] | [place] | [phone] | | [facility] | | [address] | | | - LABORATORY | | [...] ONCE PRN, Wheezing, | | | Starting Wed01/04/18 at 1528, | | | For 1 [...] ONCE PRN, Wheezing, | | | Starting e 01/04/18 at 1149, | | | For 1 dose, Pre-op | | + +---+ | | | + +---+ | albuterol-ipratropium (DUONEB) | | | 2.5-0.5 mg/3 mL nebulizer | | | solution 3 mL 3 mL, | | | Nebulization, ONCE PRN, Wheezing, | | | Shortness of Breath, Starting | | | [facility] 01/04/18 at 1528, For 1 dose, | [...] glucose < 50, | | | Starting e 01/04/18 at 1149, | | | Repeat [...] MIN PRN, Pain, Starting | | | 01/04/18 at 1528, Maximum | | | [...] | | | For HR <50, Starting 01/04/18 | | | at 1528, For 2 [...]
--- OUTSIDE RECORDS SUMMARY | ~2020-03-21 | XMS | Encounter Summary ---
Demographics + + + | Address | [address] | | | [place] [address] | + + + | Home Phone [...] | Author | [facility] | | | and Kamaljitana | + + + | Organization | [facility] | | | and [place] | + + + | Address | Unknown | + + + | Phone | Unavailable | + + + Support + + + + + | Name | Relationship | Address | Phone | + + + + + | India Tilley | ECON | [address] | | | | | [place], [place] | | | | | [address] | | + + + + + [...] Providers + +------+ + | Care Mica Sizer Name | Role | Phone | + +------+ + PCP | Unavailable | + +------+ + Reason for Visit +---------+ + | Reason | Comments | +---------+ + | Post Op | Right AVF cath placement | +---------+ + Evaluate & [...] | stage V | [address] | [place], | | | | | (HCC) | [place], | [place] [address] | | | | | | [place] [address] | Phone: | | | | | | Phone: | [phone] | | | | | | [phone] | Fax: | | | | | | Fax: | [phone] | | | | | | [phone] | | +--------+ + + + + + Encounter Details +--------+---------+ + + + | Date | Type | Department | Care Team | Description | +--------+---------+ + + + | 02/10/ | Office | [facility] | Santos Stephenson | Chronic kidney | | 2018 | Visit | SURGERY [address] | MD Kinga, FACS [address] | disease, stage V | | | | [address] [place] [facility], [place] | [address] | (HCC) (Primary Dx); | | | | [address] | [place] [address] | Post-operative state | | | | [phone] | [phone] | | | | | | | [...] + + | Pulse | 81 | 02/10/2018 3:03 PM | | | | | PDT | | + + + + + | Temperature | 36.9 C (98.5 F) | 02/10/2018 3:03 PM | | | | | PDT | | + + + + + | Respiratory Rate | - | - | | + + + + + | Oxygen Saturation | 98% | 02/10/2018 3:03 PM | | | | | PDT | | + + + + + | Inhaled Oxygen | - | - | | | Concentration | | | | + + + + + | Weight | 72.6 kg (160 lb 0.9 | 02/10/2018 3:03 PM | | | | oz) | PDT | | + + + + + | Height | 172.7 cm (5' 8") | 02/10/2018 3:03 PM | | | | | PDT | | + + + + + | Body Mass Index | 24.34 | 02/10/2018 3:03 PM | | | | | PDT [...] Progress Notes Santos Stephenson MD, FACS - 02/10/2018 2:50 PM PDTFormatting of this note might be diff erent from the original. Patient Identification: Estefani Tilley 1945 Is a 72 y.o. female , a patien t of Francisca Womack PA-C. Patient is here alone. S: Date of surgery: 02/04/2018. Title of surgery: Hemodialysis tunneled catheter placement in RIGHT IJ by Dr. Heather Navarro. Date of surgery: 01/04/2018. Title of surgery: Creation of RIGHT AV Fistula, RIGHT transp osition of basilic vein. Physician notes: Patient arrives 6 day(s) s/p hemodialysis tunneled catheter placement in RIGHT IJ (previous one fell out at home) . According to ED notes patient presented to the ED on 02/04/2015 complaining that her dialysi s catheter had fallen out, she was seen and examined by Dr. Navarro who then placed tunneled h emodialysis catheter in RIGHT IJ. She reports recovering well. States she has dialysis on Wednesday, Wednesday and Fridays. No problems with the RIGHT arm. PAST MEDICAL HISTORY Past Medical History: Diagnosis [...] Placement; Surgeon: Nora Leo MD; Location : [facility] MAIN OR SHUNT PLACEMENT/INSERTION Right 02/04/2018 Procedure: INSERTION SHUNT HEMODIALYSIS W/ PERMACATH; Surgeon: Heather Navarro MD; L ocation: [facility] MAIN OR VEIN SURGERY Right 01/04/2018 Procedure: Right Transposed Basilic Vein to Proximal Radial Artery; Surgeon: Santos Stephenson MD, FACS; Location: [facility] MAIN OR Allergies Allergen Reactions Lisinopril Pt states she does not remember what was the reaction she had to lisinopril. I asked her if it gave her a cough and she said "I cant remember, maybe it made me sick to my stomach". Naproxen Medications: Outpatient Encounter Prescriptions as of 02/10/2018 Medication Sig Dispense Refill amLODIPine (NORVASC) 10 [...] facility-administered encounter medications on file as of 02/10/2018. Family History Problem Relation Age of Onset Diabetes Other grandfather Diabetes Other grandmother Cancer Sister Social History: She reports that she has never smoked. She has never used smokeless tobacco. She reports th at she does not drink alcohol or use drugs. PHYSICAL EXAM Vitals: 02/10/18 1503 Pulse: 81 Temp: 36.9 C (98.5 F) TempSrc: Temporal SpO2: 98% Weight: 72.6 kg (160 lb 0.9 oz) Height: 1.727 m (5' 8") Body mass index is 24.34 kg/m. General Appearance: Alert, cooperative, no distress, appears stated age Skin: Warm and dry Upper Extremities: RIGHT arm incisions healing nicely, good thrill present, vein is visible , but smaller sized. . Fingers are warm Palpable Pulses: RIGHT LEFT Brachial Radial 1+ Ulnar Neurologic: Alert and oriented x3,Moving all 4 extremities. , Gait normal ULTRASOUND REPORT: PATIENT NAME : Estefani Tilley EQUIPMENT: [employer] M-Turbo with 10-5 mHertz probe. INDICATIONS: S/P Creation of RIGHT AV Fistula, RIGHT transposition of basilic vein. FINDING: RIGHT basilic vein measures 6.0, good flow present. IMPRESSION: Functioning RIGHT transposed AV Fistula. Assessment 1. Chronic kidney disease, stage V (HCC) 2. Post-operative state Plan 1) S/P Creation of RIGHT AV Fistula, RIGHT transposition of basilic vein. Will give the okay to use RIGHT AV fistula on 03/07/2018. Santos Stephenson MD, FACS Vascular and General Surgery documented i n this encounter Plan of Treatment Not on filedocumented as of this encounter Visit Diagnoses + + | Diagnosis | + + | Chronic kidney disease, stage V (HCC) - Primary Chronic kidney disease, Stage V | + + | Post-operative state Other postprocedural status | + + documented in this encounter
--- OUTSIDE RECORDS SUMMARY | ~2020-03-21 | XMS | Encounter Summary ---
Demographics + + + | Address | [address] | | | [place] [address] | + + + | Home Phone [...] | Author | [facility] | | | and Kamaljitana | + + + | Organization | [facility] | | | and [place] | + + + | Address | Unknown | + + + | Phone | Unavailable | + + + Support + + + + + | Name | Relationship | Address | Phone | + + + + + | India Tilley | ECON | [phone] | | | | | [place], [place] | | | | | [address] | | + + + + + [...] Team Providers + +------+ + | Care Automobile Inspector Name | Role | Phone | [...] + | 03/11/ | Telephone | [facility] | Santos Stephenson | Vascular Access | | 2018 | | SURGERY [address] | MD Kinga, FACS [address] | Problem | | | | [address] [place], [place] | [address] [facility] | | | | | [address] | [place] [address] | | | | | [phone] | [phone] | | | | | | | [...] AM Evan from the dialysis center in [place] called, and she stated that t he patient told them that Dr Stephenson said she could could start cannulation on the new fistula . Aleta said she needs a order faxed over stating that they can use the new fistula before they use it. If you could fax that to them at [phone], they'd appreciate it.Mitesh murray signed by Tahira Mensah at 03/11/2018 8:10 AM PDTdocumented in this encounter Plan of Treatment Not on filedocumented as of this encounter Visit Diagnoses Not on filedocumented in this encounter"
--- OUTSIDE RECORDS SUMMARY | ~2020-03-21 | XMS | Encounter Summary ---
Demographics + + + | Address | [address] | | | [place] [address] | + + + | Home Phone [...] Author | [facility] | | | and Kamaljitana | + + + | Organization | [facility] | | | and [place] | + + + | Address | Unknown | + + + | Phone | Unavailable | + + + Support + + + + + | Name | Relationship | Address | Phone | + + + + + | India Tilley | ECON | [id number] | | | | | [place], [place] | | | | | [address] | | + + + + + [...] Team Providers + +------+ + | Care Corn Miller Name | Role | Phone | [...] + + | 02/04/ | Emergency | [facility] | [place], | Complications, | | 2017 - | | [facility] SUR[facility] | Venkatesh Esteban MD [address] | dialysis, catheter, | | | | [address] [place] | [address] [place] | mechanical, initial | | 02/05/ | | [place] [address] | [place] [address] | encounter ([facility]) | | 2018 | | [phone] | [phone] | (Primary Dx); End | | | | | | stage renal disease | | | | | Heather Navarro, | ([facility]) | | | | | [address] | | | | | | [place], [place] | | | | | | [address] | | | | | | | [...] Office Phone Number to Contact Dr Navarro: [phone] Navarro's Office to schedule a follow up visit as needed - you will follow up with Dr Stephenson and at the dialysis center. Our office is located in the [facility] next door to Urgent Care. Other appointments [...] Wednesday 9:00-2:00PM. Call the General Surgery Office [phone] for the following: Persistent vomiting Diarrhea lasting [...] as possible. Limit sports and strenuous activities [id number]. Shower as usual. Gently wash around your [...] 02/05/2018 1:56 AM PDTdocumented in this encounter H&P Notes Heather Navarro MD - 02/04/2018 7:51 PM PDT [facility] --[facility] ADMIT HISTORY AND PHYSICAL Primary Care Physician: Francisca Womack PATIENT NAME: Estefani Tilley : 1945 TODAY'S DATE: 02/04/2018 CHIEF COMPLAINT: My dialysis catheter fell out History OF PRESENT ILLNESS: I was asked by Dr. Lazar, ER Physician to admit this pat ient. Estefani Tilley is a 72 y.o. female, I was asked to evaluate for placement of tunneled dialysis catheter. This is a patient with stage V kidney disease on hemodialysis whose tunn eled dialysis catheter was dislodged yesterday. She was in [place] and then came here from [facility] in [place]. She recently had an AV fistula placed, 4 weeks ago, but this is not ready to use. She will require a new tunneled dialysis catheter placed urgently. Last food was 3 or 4 hours ago. PAST MEDICAL HISTORY Past Medical History: Diagnosis Date Anemia Arthritis Back pain Breast cancer (HCC) Cancer (HCC) Diabetes (HCC) Heart disease Hemodialysis patient (HCC) mon-wed-fri History of blood clots Hypercholesteremia Hypertension Hypothyroidism Renal failure Seasonal allergies PAST SURGICAL HISTORY Past Surgical History: Procedure Laterality Date APPENDECTOMY EYE SURGERY 2009 HYSTERECTOMY MASTECTOMY 2006 left ear NOSE SURGERY 2009 SHUNT PLACEMENT/INSERTION N/A 11/08/2017 Procedure: Tunneled Hemodialysis Catheter Placement; Surgeon: Nora Leo MD; Location : [facility] MAIN OR VEIN SURGERY Right 01/04/2018 Procedure: Right Transposed Basilic Vein to Proximal Radial Artery; Surgeon: Santos Stephenson MD, FACS; Location: [facility] MAIN OR MEDICATIONS Prior to Admission medications Medication Sig Start Date End Date Taking? Authorizing Provider amLODIPine (NORVASC) 10 MG tablet Take 1 tablet by mouth Daily. Patient not taking: Reported on 02/04/2018 10/07/17 Edison Keys MD artificial tears (AKWA TEARS) ophthalmic ointment Place into both eyes every hour as neede d for Dry Eyes. Yes Historical Provider, aspirin 325 mg tablet Take 325 mg by mouth Daily. Yes Historical Provider, atorvaSTATin (LIPITOR) 20 mg tablet Take 20 mg by mouth nightly. Yes Historical Provider, b complex-vitamin c-folic acid (NEPHRO-MANUEL) tablet Take 1 tablet by mouth Daily. Yes His torical Provider, calcium-vitamin D (CALCIUM 600-D) 600 mg-400 units per tablet Take 1 tablet by mouth 2 time s daily. Yes Historical Provider, cholecalciferol (VITAMIN D-3) 2000 units TABS Take 2,000 Units by mouth Daily. Yes Histor ical Provider, epoetin karthik (EPOGEN, PROCRIT) 10,000 units/mL injection Inject 1 mL under the skin Three t imes a week. 11/10/17 Mayelin Vega MD furosemide (LASIX) 80 mg tablet Take 1 tablet by mouth Daily. 10/07/17 Yes Jessie Maldonado gabapentin (NEURONTIN) 100 mg capsule Take 200 mg by mouth 3 times daily. Take Two (2) caps ules by mouth every morning and take Two (2) capsules every evening and take one (1)capsule at noon if needed for Neuropathy - per Med list received from Dr. Womack office 12/30/17. Yes Historical Provider, Glucose Blood (TRUE METRIX BLOOD GLUCOSE TEST ) by In Vitro route. Historical Provider , insulin glargine (LANTUS SOLOSTAR) 100 units/mL injection (pen) Inject 12 Units under the s kin nightly. Yes Historical Provider, Insulin Pen Needle 31G X 5 MM MISC by Does not apply route. Historical Provider, labetalol (NORMODYNE) 200 mg tablet Take 1 tablet by mouth 2 times daily. 10/06/17 Yes Edison Keys MD Lancets MISC by Does [...] differently: Take 100 mg by mouth Daily. 10/07/17 Edison Keys MD olopatadine (PATANOL) 0.1% ophthalmic solution Place 1 drop into both eyes 2 times daily. Historical Provider, pantoprazole (PROTONIX) 40 mg tablet Take 40 mg by mouth every morning (before breakfast). Historical Provider, UNABLE TO FIND Med Name: Cadoexomer Iodine 0.9 % gel. Apply a small amount to affected are a as directed during dressing changes. Historical Provider, ALLERGIES Allergies Allergen Reactions Lisinopril Pt states she does not remember what was the reaction she had to lisinopril. I asked her if it gave her a cough and she said "I cant remember, maybe it made me sick to my stomach". Naproxen FAMILY HISTORY family history includes Cancer in her sister; Diabetes in some other family members. SOCIAL HISTORY The pt reports that she has never smoked. She has never used smokeless tobacco. She report s that she does not drink alcohol or use drugs. REVIEW OF SYSTEMS All other systems were reviewed and were negative. PHYSICAL EXAM Temp: 36.3 C (97.4 F) BP: 146/68 Pulse: 72 Resp: 16 SpO2: 97 % on Wt. Admission: Weight: 72.6 kg (160 lb) Constitutional : Well developed, well nourished, no acute distress, non-toxic appearance Eyes: negative HENT: atraumatic, external ears normal, nose normal, septum midline, oropharynx moist, n o pharyngeal exudates Respiratory : No respiratory distress, normal breath sounds, no rales, no wheezing Cardiovascular : Regular rate and rhythm GI: soft, non-tender; bowel sounds normal; no masses, no organomegaly : No costovertebral angle tenderness Musculoskeletal : No edema, no tenderness, no deformities and Back - no tenderness Integument : Well hydrated, no obvious lesions on exposed skin, there is a hypertrophic sc ar on the right chest inferior to the prior tunneled dialysis catheter location which is pro bably from a prior suture. The tunneled dialysis catheter site has a bandage in place which is clean and dry. No crepitance or cellulitis. Lymphatic : no lymphadenopathy noted Neurologic : Grossly normal Psychiatric : Normal affect Diagnostic Studies: Laboratory studies and imaging were personally reviewed by me. Chemistry: Lab Results Component Value Date NA 132 02/04/2018 K 4.0 02/04/2018 CO2 28 02/04/2018 BUN 23 02/04/2018 CREA 3.57 02/04/2018 GLU 170 02/04/2018 Hematology: Lab Results Component Value Date HGB 12.1 02/04/2018 HCT 35.7 02/04/2018 WBC 6.1 02/04/2018 IMPRESSION: 1. 72-year-old female with end-stage renal disease in need of access for dialysis after her tunneled dialysis catheter became dislodged yesterday. Present on Admission: End stage renal disease (HCC) PLAN: 1. Nothing by mouth 2. Patient consented for tunneled dialysis catheter placement urgently, today. 3. Patient will receive appropriate VTE prophylaxis. Outpatient Electronically Signed by: Heather Navarro MD, 02/04/2018 19:51 [facility] documented in thi s encounter ED Notes Venkatesh Bejarano MD - 02/04/2018 9:31 PM PDTFormatting of this note might be differe nt from the original. [facility] Estefani Tilley Emergency Department Encounter Note [address] [place] [id number] PCP:Francisca Womack PA-C [phone] DIAGNOSIS: 1. Complications, dialysis, catheter, mechanical, initial encounter (HCC) 2. End stage renal disease (HCC) CHIEF COMPLAINT: Chief Complaint Patient presents with Medical Problem (Minor) Mode of Arrival: walk-in ED Room: 3 HPI Estefani Tilley is a 72 y.o. female who presents to the Emergency Department for evaluation . This patient was in [place] and apparently her tunneled dialysis catheter snagged on jimmie ething and dislodged. She went to the ER there with a removed it the rest of the way, put a dressing over it, and instructed her to come here. She has no other complaints at this dutch e. She did have a fistula placed in her right arm, but it is only about 4 weeks old and is not yet ready for use. PAST MEDICAL & SURGICAL HISTORY Patient Active Problem List Diagnosis Date Noted Elevated hemoglobin A1c 11/08/2017 Priority: Medium Decreased glomerular filtration rate (GFR) 11/08/2017 Priority: Medium Note Last Updated: 11/08/2017 GFR 17 11/08/2017 Poor historian 11/08/2017 Priority: Low End stage renal disease (HCC) 01/25/2018 Anemia [...] in past. H/O LEFT Beast cancer - 2006 09/12/2007 Note Last Updated: 10/21/2017 Overview: mastectomy L Oct [address] [facility] IMO Problem List Replacement - 2017_Regulatory_1 Osteoarthrosis 09/12/2007 Note Last Updated: 10/21/2017 Overview: x 10 years. Trials sulfasalazine, hydroxychlorquine, arava IMO Problem List Replacement - 2017_Regulatory_1 Other chronic pain 09/12/2007 Note Last Updated: 10/21/2017 Overview: Several no shows, Dr. Odom will NOT continue narcotics. Past Surgical History: Procedure Laterality Date APPENDECTOMY EYE SURGERY 2009 HYSTERECTOMY MASTECTOMY 2006 left ear NOSE SURGERY 2008 SHUNT PLACEMENT/INSERTION N/A 11/08/2017 Procedure: Tunneled Hemodialysis Catheter Placement; Surgeon: Nora Leo MD; Location : [facility] MAIN OR VEIN SURGERY Right 01/04/2018 Procedure: Right Transposed Basilic Vein to Proximal Radial Artery; Surgeon: Santos Stephenson MD, FACS; Location: [facility] MAIN OR CURRENT MEDICATIONS Previous Medications AMLODIPINE (NORVASC) 10 MG TABLET Take 1 tablet by mouth Daily. ARTIFICIAL TEARS (AKWA TEARS) OPHTHALMIC OINTMENT Place [...] TABS Take 2,000 Units by mouth Daily. EPOETIN KARTHIK (EPOGEN, PROCRIT) 10,000 UNITS/ML INJECTION [...] GLUCOSE TEST ) by In Vitro route. INSULIN GLARGINE (LANTUS SOLOSTAR) 100 UNITS/ML INJECTION [...] as needed for Allergies . LOSARTAN (COZAAR) 25 MG TABLET Take 1 [...] PHYSICAL EXAM VITAL SIGNS: (first vital signs):Temp: 36.3 C (97.4 F) Pulse: 72 Resp: 16 SpO2: 97 % BP : 146/68 Body mass index is 24.33 kg/m. Constitutional: Well-appearing female patient. HEENT: Atraumatic, PERRL, Oropharynx benign. Neck: Supple with full range of motion. Chest: Good air movement bilaterally. No wheezes, No, rales. The site in her right ches t where her dialysis catheter was in place is now covered with a Tegaderm and gauze. There is no bleeding present. Cardiovascular: Normal S1 S2 Abdomen: Soft, nontender. Back: Within normal limits Extremities: Nontender. Neurologic: Alert & oriented. No focal deficits, Gait and speech are normal Psychiatric: Normal mood, affect and judgement. LABS Results for orders placed or performed during the hospital encounter of 02/04/18 CBC with Differential Result Value Ref Range WBC 6.1 4.0 - 11.0 K/uL RBC 3.99 3.70 - 5.20 M/uL Hgb 12.1 11.5 - 16.0 g/dL Hct 35.7 34.0 - 47.0 % MCV 89.6 83.0 - 101.0 fL MCH 30.4 28.0 - 35.0 pg MCHC 34.0 32.0 - 36.0 g/dL RDW-CV 17.3 (H) <15.0 % Platelet Count 205 140 - 440 K/uL MPV 7.7 fL % Neutrophils 55.3 45.0 - 82.0 % % Lymphocytes 35.1 20.0 - 45.0 % % Monocytes 5.5 4.0 - 12.0 % % Eosinophils 3.3 0.0 - 5.0 % % Basophils 0.8 0.0 - 1.0 % Absolute Neutrophils 3.40 1.80 - 8.50 K/uL Absolute Lymphocytes 2.20 0.60 - 3.20 K/uL Absolute Monocytes 0.30 0.00 - 1.00 K/uL Absolute Eosinophils 0.20 0.00 - 0.40 K/uL Absolute Basophils 0.00 0.00 - 0.10 K/uL Basic Metabolic Panel Result Value Ref Range NA 132 (L) 136 - 149 mmol/L K 4.0 3.5 - 5.1 mmol/L CL 96 (L) 98 - 109 mmol/L CO2 28 24 - 31 mmol/L ANION GAP 8 3 - 16 mmol/L GLUCOSE 170 (H) 70 - 109 mg/dL BUN 23 (H) 7 - 18 mg/dL Creatinine, Serum/Plasma 3.57 (H) 0.60 - 1.30 mg/dL eGFR if not 13 (L) >=60 mL/min/1.73m2 CALCIUM 8.6 8.3 - 10.5 mg/dL BUN/CREA 6.4 Protime INR Result Value Ref Range Protime 13.2 11.3 - 13.9 seconds INR 1.01 0.90 - 1.10 IMAGING STUDIES (X-Rays interpreted by ED Physician) Chest x-ray shows no pneumothorax or residual piece of her dialysis catheter. No acute findings ED COURSE & MEDICAL DECISION MAKING Pertinent Labs & Imaging studies were reviewed along with EMS notes and custodial record s if applicable. (See chart for details) Medications and Allergy list reviewed. Nurses note and old records were reviewed The patient was seen and examined, I did discuss the case initially with Dr. Muñoz who s tated that she would need to have a new catheter placed. Case was discussed with Dr. Navarro who will be taking her to the operating room to replace this. I did check some laboratory s tudies which show her chronic renal failure but no other acute findings. Chest x-ray shows no acute findings. Last Set of Vital Signs: Temp: 36.3 C (97.4 F) Pulse: 72 Resp: 16 SpO2: 97 % BP: 146/68 FINAL IMPRESSION ICD-10-CM ICD-9-CM 1. Complications, dialysis, catheter, mechanical, initial encounter ([facility]) T82.49XA 996.1 2. End stage renal disease (HCC) N18.6 585.6 Portions of this chart were created with [employer] voice recognition software. Inadvertent so und alike substitutions may be present and are unintentional Venkatesh Bejarano MD 02/04/[id number] Keren Choi RN - 02/04/2018 9:19 PM PDTPt d/c to surgery visually upset because she won't be able to drive home after the procedure. pts son is at her bedside but he is unable to drive her inder e. Pt has no one else to call for a ride home. Pt has been offered to stay in the hospital u ntil she is fully recovered to drive home safely but doesn't like this option either. Pt ups et because she feels that she is a burden. LISA Beltr[facility]noil recovery unit operator aware of situation and takes pt to [facility]. Boris Choi RN - 02/04/2018 6:15 PM PDTPt arrives after her dialysis catheter fell out yesterday. Pt states that she was due to have dialysis today. documented in this encounter Miscellaneous Notes Op Note - Heather Navarro MD - 02/04/2018 11:12 PM PDT [facility] OPERATIVE REPORT PATIENT NAME: Estefani Tilley AGE: 72 y.o. TODAY'S DATE: 02/04/2018 Surgeon: Surgeon(s): Heather Navarro MD Surgical Assists: none Anesthesiologist: Lyndsay Mckeon DO Anesthesia: Choice Pre-op Diagnosis: Needs dialysis catheter Post-op Diagnosis: Same Procedure: Hemodialysis tunneled catheter placement in the right IJ under fluoroscopic guid ance Indications & Findings: 72-year-old female who has end-stage renal disease requiring dialys is who has a dislodged dialysis catheter and AV fistula which is not mature yet. She needs hemodialysis tunneled catheter for least the next 6 weeks. She was supposed to have dialysi s today and was unable to have dialysis. I expect her the risks, benefits, and alternatives to hemodialysis catheter placement and her questions were answered. The risks we discussed include but are not limited to bleeding, infection, need to remove or replace the catheter, pneumothorax requiring chest tube, hemothorax requiring surgery in the chest, unforeseen co mplications, wound healing complications and . She understands risks and wishes to pro ceed. She signed a consent for the procedure. The right IJ was cannulated on the first take under ultrasound guidance and then fluoroscop ic guidance used to follow the guidewire to the SVC. Estimated Blood Loss: 10 mL Transfused: No Complications: none Technique/Procedure Description: The patient was brought from the emergency room to the ope rating room placed on the operative table in Supine Position. Gen. Anesthesia Was Induced a nd an LMA Was Placed. She was positioned with both arms tucked and the head slightly extend ed and turned to the left to expose the right neck. She was placed in a slightly headdown p osition. Ultrasound was used to identify the right IJ as a good location for the catheter. The neck and chest was prepped and draped in the usual sterile fashion and a timeout was ta ángel to confirm the correct patient, position, procedure. Local anesthetic was infiltrated i nto the skin overlying the right IJ and then along the course of the tunneling to the chest. A small tana was made in the skin with an 11 blade just over the right IJ. A large bore c atheter needle was then used to cannulate the IJ under ultrasound guidance. A guidewire was placed through the needle and fluoroscopy was used to follow the wire to the superior vena cava to the level of the right atrium. The skin incision and the chest was then made and The tunneling device was used to tunnel t he catheter from the chest up into the incision in the neck. A mosquito clamp was used to c reate a small pocket there is a that the catheter could make the angle into the blood vessel without kinking. The dilators were then used over the wire sequentially and the introducer sheath was then placed over the wire and the wire removed. The catheter was then fed throu gh the introducer sheath under fluoroscopic guidance to the level of the SVC and the sheath was peeled away. Both ports on the catheter were able to draw and flush easily. 1000 units of heparin per milliliter were instilled into each of the limbs of the catheter, 1.7 mL eac h. Final x-ray images were taken of the tip of the catheter in the chest and the catheter at t he level of the neck showing no kinks. The catheter was sutured in place with 3-0 nylon sut ure and the neck incision was closed with a simple interrupted 4-0 Vicryl suture. A 4-0 Qamar ryl suture was also placed in the chest incision to tighten up the incision where the cathet er entered the skin. The patient was also consented for removal of a hypertrophic scar a few centimeters inferio r to the catheter location and this was addressed at this time. Local anesthetic was infilt rated in the skin surrounding the lesion and a 15 blade was used to excise the scar. Electr ocautery was used for hemostasis and a 4-0 Monocryl suture was used to close the skin and a glue dressing was applied at this location and the chest as well as up in the neck. A steri le gauze dressing and a Biopatch were placed on the catheter and a Tegaderm dressing was lyudmila lied. The patient was allowed to wake up and taken to PACU in stable surgical condition. S he tolerated the procedure well. At the end of the case the needle and sponge counts were r eported as correct 2. Postoperative Plan: Discharge home when criteria met Electronically signed by: Heather Navarro MD, 02/04/2018 23:12 [facility] rief Op Note - Heather Ramos MD - 02/04/2018 11:11 PM PDTFormatting of this note might be different f rom the original. Brief Operative Note Estefani Tilley 72 y.o. female 1945 [id number] Proc. Date 02/04/2018 - 02/05/2018 Preop Dx Needs dialysis catheter Postop Dx same Procedure INSERTION SHUNT HEMODIALYSIS W/ PERMACATH - removal right chest lesion/scar Anesthesia Dr Mckeon Surgeon Heather Navarro MD - Primary Milk House Worker none EBL 10 mL Findings Findings consistent with scheduled procedure. No other abnormalities found. Right IJ. Ultrasound used to cannulate the right IJ. X-ray used to follow the guidewire t o the SVC. Catheters flushed with 1.7 mL each heparinized saline. Complications none Specimens * No specimens in log * Drains none Electronically signed by: Heather Navarro MD 02/04/2018 23:11 [facility] documented in this encounter Plan of Treatment [...] [facility]. | [address] | [place] | [phone] | | [facility] | | [address] | | | - LABORATORY | | [...] ST. | [address] | [place], [place] | [phone] | | [facility] | | [address] | | | - LABORATORY | | [...] 3.57 (H) | 0.60 - 1.30 | [facility] | | | | | mg/dL | [...] mL/min/1.73m2 | [facility] | | | [place] | RATE,ESTIMATED | | MEDICAL | | | | mL/min/1.91u9Cnkb than | | CENTER - | | [...] [address] | [place] | [phone] | | [facility] | | [address] | | | - LABORATORY | | | | + + + + + CBC with Differential (02/04/2018 7:21 PM PDT) + + + + + + | Component | Value | Ref Range | Performed | Pathologist | | | | | At | Signature | + + + + + + | White Blood | 6.1 | 4.0 - 11.0 K/uL | [facility] | | | Cells | | | [facility] | | | | | | [facility]ICAL | | | | | | [facility] - | | | | | | LABORATORY | | + + + + + + | Red Blood | 3.99 | 3.70 - 5.20 | [...] ST. | [address] | [place] | [phone] | | [facility] | | [address] | | | - LABORATORY | | | | + + + + + documented in this encounter Visit Diagnoses + + | Diagnosis | + + | Complications, dialysis, catheter, mechanical, initial encounter (HCC) | + + | End stage [...] agent. | | | Ondansetron IV is automotive engineer | | | out. If patient cannot [...]
--- OUTSIDE RECORDS SUMMARY | ~2020-03-21 | XMS | Encounter Summary ---
Demographics + + + | Address | [address] | | | [place] [address] | + + + | Home Phone [...] Author | [facility] | | | and Kamaljitana | + + + | Organization | [facility] | | | and [place] | + + + | Address | Unknown | + + + | Phone | Unavailable | + + + Support + + + + + | Name | Relationship | Address | Phone | + + + + + | India Tilley | ECON | [address] | | | | | [place], [place] | | | | | [address] | | + + + + + [...] Team Providers + +------+ + | Care Tile Grinder Name | Role | Phone | [...] | al disc | [address] | [place], [place] | | | | | (pyogenic), | [place], [place] | [address] | | | | | thoracic | [address] | Phone: | | | | | region ([facility]) | Phone: | [phone] | | | | | | [phone] | Fax: | | | | | 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: | [phone] | | | | | s of | [phone] | | | | | | thoracic [...] | | | vertebra, | [address], | [place], [place] | | | | | site | [place] [address] | [address] | | | | | unspecified | Phone: | Phone: | | | | | ([facility]) | [phone] | [phone] | | | | | Procedures | Fax: | Fax: | | | | | [place] OFFICE | [phone] | [phone] | | | | | OUTPATIENT | | | | | | | NEW 60 | | | | | | | MINUTES | | | + +--------+ + + + + Encounter Details +--------+---------+ + + + | Date | Type | Department | Care Team | Description | +--------+---------+ + + + | 05/18/ | Office | [facility] | Fabiana Miller, | 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 | 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 | Nick Apodaca MD | intervertebral disc | | | | [address] | [address] | (pyogenic), thoracic | | | | [place], [place] | [place] [address] | region (HCC) | | | | [address] | [phone] | (Primary Dx); | | | | [phone] | | Osteomyelitis of | | | [...] 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 Complete MRI as soon as possible. Complete lab testing today.Electronically signed by Nick Miller MD at 01/2019 2:01 PM PDT documented in this encounter Progress Notes Nick Pritchard MD - 05/18/2019 1:20 PM PDT [facility] Service: Infectious Diseases Initial Outpatient Consult Note [...] with diabetic nephropathy, [facility] on Wednesdays and Fridays, seen in consultation for p ossible discitis and osteomyelitis. History is obtained from: Patient, limited medical records from outside referring provider. The patient presents to clinic referred by Dr. Mat Brooks from orthopedic surgery in [facility]. 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 The patient states that she was [...] Power Line; Surgeon: Jose Jiménez MD; Location: [facility] INTERVENTIONAL RADIOLOGY REMOVAL TUNNELED CATHETER Right [...] INFLUENZA QUADR W/PRES (PED/ADOL/ADULT) MULTIDOSE 06/27/2014 INFLUENZA, [id number], UNSPECIFIED 08/28/2009 INFLUENZA, UNSPECIFIED FORMULATION 07/03/1992, 06/18/1993, [...] REFERENCE | | | | performed at [facility];[address] | | LAB | | | | [address] | | [facility] | | | | [address];[place] [address] | | LABORATORY | | + + + + + + + + | Specimen | + + | Blood | + + + + + + + | Performing | Address | City/State/Zipcode | Phone Number | | Organization | | | | + + + + + | REFERENCE LAB | [address] [place] [address] | [place], [place] | [phone] | | [facility] | [address] | [address] | | | LABORATORY | | | | + + + + + | REFERENCE LAB | [address] [place] [address] | [place], [place] | | | [facility] | [address] | [address] | | | LABORATORY | | | [...] REFERENCE | | | | performed at [facility];[address] | | LAB | | | | [place] | | [facility] | | | | [address];[place] [address] | | LABORATORY | | + + + + + + + + | Specimen | + + | Blood | + + + + + + + | Performing | Address | City/State/Zipcode | Phone Number | | Organization | | | | + + + + + | REFERENCE LAB | [address] | [place] | [phone] | | [facility] | [address] | [address] | | | LABORATORY | | | | + + + + + | REFERENCE LAB | [address] [facility] | [place] | | | [facility] | [address] | [address] | | | LABORATORY | | | [...] | | | | | performed at [facility];[address] | | | | | | [facility] | | | | | | [facility];[place] [address] | | | | | | | | | | + + + + + + + + | Specimen | + + | Blood | + + + + + + + | Performing | Address | City/State/Zipcode | Phone Number | | Organization | | | | + + + + + | REFERENCE LAB | [address] [place] [address] | [place], [place] | [phone] | | [facility] | [address] | [address] | | | LABORATORY | | | | + + + + + | REFERENCE LAB | [address] [place] [address] | [place], [place] | | | [facility] | [address] | [address] | | | LABORATORY | | | [...] | | | Absolute | performed at [facility];[address] | [address] | LAB | | | | [facility] | | [facility] | | | | [address];[place] [address] | | LABORATORY | | + + + + + + + + | Specimen | + + | Blood | + + + + + + + | Performing | Address | City/State/Zipcode | Phone Number | | Organization | | | | + + + + + | REFERENCE LAB | [address] | [place] | [phone] | | [facility] | [address] | [address] | | | LABORATORY | | | | + + + + + | REFERENCE LAB | [address] | [place] | | | [facility] | [address] | [address] | | | LABORATORY | | | [...] REFERENCE | | | | [facility];[address] [facility] | | LAB | | | | Blvd;[place] | | [facility] | | | | [address]fhm: Testing | | LABORATORY | | | | performed at [facility], [address] | | | | [address], | | | | | | [place] [address] | | | | + + + + + + + + | Specimen | + + | Blood - Structure of | | antecubital vein | | (body structure) | + + + + + + + | Performing | Address | City/State/Zipcode | Phone Number | | Organization | | | | + + + + + | REFERENCE LAB | [address] [place] [address] | [place], [place] | [phone] | | [facility] | [address] | [address] | | | LABORATORY | | | | + + + + + | REFERENCE LAB | [address] [place] [address] | [place], [place] | | | [facility] | [address] | [address] | | | LABORATORY | | | [...]
--- OUTSIDE RECORDS SUMMARY | ~2020-03-21 | XMS | Encounter Summary ---
Demographics + + + | Address | [address] | | | [place] [address] | + + + | Home Phone [...] + + + | Author | and [facility] | | | and [place]it[place] | + + + | Organization | and [facility] | | | and [place] | + + + | Address | Unknown | + + + | Phone | Unavailable | + + + Support + + + + + | Name | Relationship | Address | Phone | + + + + + | India Tilley | ECON | [address] | | | | | [place], [place] | | | | | [address] | | + + + + + [...] Team Providers + +------+ + | Care Printing Supervisor Name | Role | Phone | + +------+ + PCP | Unavailable | + +------+ + Encounter Details +--------+ + + + + | Date | Type | Department | Care Team | Description | +--------+ + + + + | 05/18/ | Orders Only | [facility] | Fabiana Miller, | | | 2018 | | INFECTIOUS DISEASE | Nick Apodaca MD | | | | | [address] | [address] | | | | | [facility] | [place] [address] | | | | | [address] | [phone] | | | | | [phone] | | | +--------+ + + + [...] | | [facility] | | | | [address]: Testing | | LABORATORY | | | | performed at [facility], [address] | | | | | | [facility] [address], | | | | | | [place] [address] | | | | + + + + + + + + | Specimen | + + | | + + + + + + + | Performing | Address | City/State/Zipcode | Phone Number | | Organization | | | | + + + + + | REFERENCE LAB | [address] [facility] | [place] | [phone] | | [facility] | [address] | [address] | | | LABORATORY | | | | + + + + + | REFERENCE LAB | [address] [facility] [address] [facility] | [place] | | | [facility] | [address] | [address] | | | LABORATORY | | | | + + + + + documented in this encounter Visit Diagnoses Not on filedocumented in this encounter"
--- OUTSIDE RECORDS SUMMARY | ~2020-03-21 | XMS | Encounter Summary ---
Demographics + + + | Address | [address] | | | [place] [address] | + + + | Home Phone [...] + | Author | [facility] | | | and [place] | + + + | Organization | [facility] | | | and [place] | + + + | Address | Unknown | + + + | Phone | Unavailable | + + + Support + + + + + | Name | Relationship | Address | Phone | + + + + + | India Tilley | ECON | [address] | | | | | [place], [place] | | | | | [address] | | + + + + + [...] Team Providers + +------+ + | Care Fitter Tacker Name | Role | Phone | + +------+ + PCP | Unavailable | + +------+ + Encounter Details +--------+ + + + + | Date | Type | Department | Care Team | Description | +--------+ + + + + | 01/04/ | Anesthesia | [facility] | Lyndsay Mckeon, | | | 2018 | Event | [facility] OP | DO [address] | | | | | [address] | [place] | | | | | [place] | [address] | | | | | [address] | | | | | | [phone] | Vinnie Last MD | | | | | | [address] | | | | | | [place], [place] | | | | | | [address] | | | | | | | | +--------+ + + + + Anesthesia Record + + + + + | Procedure Name | Responsible | Anesthesia Start | Anesthesia Stop Time | | | Anesthesiologist | Time | | + + + + + | Right Transposed | Ibanamberdomenica Mckeon DO | 01/04/18 1258 | 01/04/18 1556 | [...] +----+---+ + + | | 1 | [place] | | | | 3 | 43-degrees | | | | 2 | | | | | 1 | | | +----+---+ + + | | 1 | First | | | | 3 | Inc/Proc St | | | | 2 | | | | | 8 | | | +----+---+ + + | | 1 | [place] off | | | | 5 | [...] 01/04/18 1728 by | | eral | [id number] catheter system; | Linh Gamez RN | [...] Postprocedure Evaluation - Lyndsay Mckeon DO - 01/04/2018 3:56 PM PDTFormat ting of this note might be different from the original. ANESTHESIA POSTANESTHESIA EVALUATION Estefani Tilley 72 y.o. female 1945 [id number] Procedure(s) Right Transposed Basilic Vein to Proximal Radial Artery (Right Arm Upper) Cooperates? Yes Mental Status Performs simple tasks. Respiratory Satisfactory - Airway patent (self maintained). Cardiovascular Satisfactory - Blood pressure and heart rate acceptable Temperature Satisfactory Pain Satisfactory N/V Control Satisfactory Hydration Satisfactory - No signs of dehydration Complications None apparent Vitals: 01/04/18 1143 01/04/18 1554 BP: 106/74 168/68 Pulse: 80 69 Temp: 37 C (98.6 F) 36.5 C (97.7 F) Resp: 17 14 SpO2: 99% 95% Electronically signed by Lyndsay Mckeon DO 01/04/2018 15:56 [facility] Lyn[facility]ay Mckeon DO at 3:57 PM PDTAnesthesia Procedure Notes - Petros Garrido MD - 01/04/2018 1:48 PM PDTAssociated Order(s): ANE AIRWAY NOTEAnesthesia Airway Placement 01/04/2018 13:07 Preprocedure check: patient identified, oxygen, airway assessed, patient reassessment prior to induction, airway equipment checked and suction Rapid Sequence Induction: no Mask ventilation: easy Attempts: 1 Airway type: laryngeal mask Size: 3 Route, reference point: center of mouth Tube secured with: adhesive tape Trauma: none Tube placement verification: carbon dioxide detection Performing provider: PETROS GARRIDO Electronically Signed by: Petros Garrido MD ESig date/time: 12/13 13:48 nesthesia Proced ure Notes - Petros Garrido MD - 01/04/2018 1:47 PM PDTAssociated Order(s): ANE NERVE BLOCK CATHETER NOTEPerineural Procedure Note 01/04/2018 12:54 Nerve block: supraclavicular-brachial plexus Provider requested procedure: Dr. Stephenson Indication: postoperative analgesia Preprocedure check: patient identified, procedure and rescue equipment checked, preevaluati on including airway assessment complete, risks/benefits discussed, consent obtained, timeout performed, reassessment prior to procedure and monitors applied Patient position: supine Preparation: chlorhexidine/isopropyl alcohol, 1% lidocaine infiltration Local anesthetic infiltration volume in ml: 2 mL Technique: ultrasound Radiology image stored in patient's chart: ultrasound Needle: echogenic, stimulating, insulated and short-bevel Needle size: 22 g Needle length: 4 in Medication administered through: needle Negative findings: no blood aspirated and no paresthesia Total volume of local anesthetic solution administered: 20 mL Attempts: 1 Ease of procedure: easy Comments: SpO2, NBP monitored during procedure and recorded in anesthesia record. Ultrasou nd used to identify the subclavian artery and supraclavicular brachial plexus. Under contin uous ultrasound guidance the Stimuplex needle was advanced to the supraclavicular brachial p jan proximity with needle tip visualized throughout. 15ml 0.5% Ropivacaine with 5ml 2% l idocaine was injected in 5 ml increments around the nerves with intermittent negative aspira tion and no paresthesias. Ultrasound image placed in chart. Please see anesthesia record or flowsheet for vital sign documentation and see anesthesia r ecord or MAR for all medication documentation. Performing provider: PETROS GARRIDO Electronically Signed by: Petros Garrido MD ESig date/time: 01/04/2018 13:48 nesthesia Prepro cedure Evaluation - Petros Garrido MD - 01/04/2018 10:43 AM PDT ANESTHESIA PREANESTHESIA EVALUATION Estefani Tilley 72 y.o. female 1945 [id number] Procedure(s): Right Transposed Basilic Vein to Proximal Radial Artery & Replacement of Tunn eled Dialysis Catheter (Right Arm Upper) Medical history, anesthesia, medications, allergy, NPO status [...] ECGs available Confirmed by KEN ELLISON MD ([id number]) on 10/02/2017 7:49:20 AM . (+) hypertension, pulmonary hypertension (mild to mod on echo 10/31)(-) CAD, angina Pulmonary No acute pulmonary concerns. (-) asthma, COPD(+) sleep apnea: Untreated Neurology (+) CVA, neuropathy, back pain, weakness (L sided weakness LLE), numbness/tingling (fingers and feet), chronic pain Psychology (+) depression, substance abuse Renal Lab Results Component Value Date CREA 2.99 (H) 11/09/2017 BUN 29 (H) 11/09/2017 NA 135 (L) 11/09/2017 K 3.2 (L) 11/09/2017 CL 99 11/09/2017 CO2 27 11/09/2017 . (+) end-stage renal disease , Dialysis hemodialysis , Last dialysis: 01/03/18 Gastrointestinal/Hepatic (+) hyperlipidemia Endocrine (+) hypothyroidism (+) Diabetes: type 2, IDDM Other Lab Results Component Value Date WBC 8.9 11/09/2017 HGB 8.9 (L) 11/09/2017 HCT 26.3 (L) 11/09/2017 MCV 89.6 11/09/2017 PLT 182 11/09/2017 . (+) anemia, arthritis Cancer (+) breast cancer (L) Physical Exam Airway MP II, TM >3 FB, Mouth opening >2 FB. Neck: full ROM, extends >30 degrees. Jaw protrus ion normal. Dental ; (+) missing teeth. CV Rhythm regular. Rate normal. (-) murmur. Pulm Clear to auscultation bilaterally. Neuro Grossly normal. Anesthesia Plan ASA 3 (ESRD) Type: General. Induction: Intravenous. Potential problems: None anticipated. Monitors: Standard ASA monitors. Consent statement:Anesthetic plan, alternatives, risks and benefits discussed with patient. Risks discussed included (but were not limited to): sore throat, nausea, perioperative CV e vents, infection, respiratory events, heart problems, bleeding, nerve damage. Consenting person understands and agrees to proceed. PARQ. PARQ for supraclavicular nerve block under ultrasound guidance for post-op pain control as requested by surgeon. Pt agrees to GA/LMA/PNB. . Electronically Signed by: Petros Garrido MD ESig date/time: 01/04/2018 11:05 documented in thi s encounter Plan of [...] Performed At | + + + | Pertos Garrido MD 01/04/2018 13:48 Anesthesia Airway | [...] RADHIKA | | PETROS Tarangoectronically Signed by: Petros Garrido MD ESig | | date/time: 01/04/2018 13:48 | |Size: 3 | |Route, reference point: center of mouth | |Tube secured with: adhesive tape | |Trauma: none | |Tube placement verification: carbon dioxide detection | |Performing provider: PETROS GARRIDO | | | | | |Electronically Signed by: Petros Garrido MD ESig date/time: 12/13 13:48 | | | + [...] | |Electronically Signed by: Petros Garrido MD ESiestevan date/time: 01/04/2018 13:48 | + + documented [...] | | | | | | Starting 01/04/18 at 0613, For | | | | [...] mg | | | | PRN, Starting 01/04/18 at | | 18 1:23 | | | | | 1323, Anesthesia Intra-op | | PM PDT | | | | + +-------+ +-------+---+---+ +---+---+ | | | +---+---+ + +-------+ +--------+---+---+ | fentaNYL (PF) injection PRN, | Given | 01/05/20 | 25 mcg | | | | Pain, Starting 01/04/18 at | | 18 3:35 | | [...] | | | | Intravenous, PRN, Starting Wed | | 18 1:06 | | | [...] | | | | | Anxiety, Starting 01/04/18 at | | PM PDT [...] mg | | | | PRN, Starting 01/04/18 at | | 18 1:06 | | [...]
--- OUTSIDE RECORDS SUMMARY | ~2020-03-21 | XMS | Encounter Summary ---
Demographics + + + | Address | [address] | | | [place] [address] | + + + | Home Phone [...] | Author | [facility] | | | and [place]it[place] | + + + | Organization | [facility] | | | and [place] | + + + | Address | Unknown | + + + | Phone | Unavailable | + + + Support + + + + + | Name | Relationship | Address | Phone | + + + + + | India Tilley | ECON | [address] | | | | | [place], [place] | | | | | [address] | | + + + + + [...] Team Providers + +------+ + | Care Insurance Claims Specialist Name | Role | Phone | + +------+ + | Renato Pierson | PCP | | + +------+ + Reason for Visit + +--------+ + | Reason | Onset | Comments | | | Date | | + +--------+ + | Care Coordination | 06/14/ | Patient Timeline - Line Care/Provider Management | | | 2018 | | + +--------+ + Encounter Details +--------+ + + + + | Date | Type | Department | Care Team | Description | +--------+ + + + + | 06/14/ | Telephone | [facility] | Tabatha Patel, | Care Coordination | | 2019 | | INFECTIOUS DISEASE | Whiting Machine Operator | (Patient Timeline - | | | | [address] | | Line Care/Provider | | | | [place], [place] | | Management ) | | | | [address] | | | | | | [phone] | | | +--------+ + + + [...] this encounter Miscellaneous Notes Telephone Encounter - Tabatha Patel Whiting Machine Operator - 07/18/2019 8:46 AM PSTI attempte d to get a hold of patient. I left message requesting for patient to return my call at [facility]. Callback number was provided in message,[phone] option 5. I will wait for callback. elepho ne Encounter - Tabatha Patel Whiting Machine Operator - 06/27/2019 9:32 AM PDTPatient has appoin tment today 06/27/[address] Jung. I attempted to get a hold of Emili. I was F/u to see if patient had biposy done at [facility]. I left message requesting callback. I also attempted to get a hold of patient. Message was left for patient to return call to [facility]. Callback # was provided. ecarol ne Encounter - Tabatha Patel Medical Assistant - 06/27/2019 9:28 AM PDT06/21/2019: Received VM from Emili at [facility] stating ,patient is at [facility] inpatient. She was a dmitted in [facility] due to missing dialysis. Emili spoke to Dr. Braxton and stated that she was managing line care. Dr. Braxton offered to write orders so patient can have procedure d one while she is at [facility]. She needs orders, and progress note. F# [phone]. If this is sent then they will do at [facility] if not received appointment currently with [facility] will stay the same. ---Orders were faxed to [phone] on 06/21/2019. elepho ne Encounter - Tabatha Patel Whiting Machine Operator - 06/14/2019 10:26 AM PDTI returned LISA Mock call at [phone]. I let her know that patient came in to office visit yesterday 06/13/2019. Patients son state d he would call our office to give us information on who placed orders for patients line or just more information about the line. I let her know that he has not called the office. I al so let her know that Dr. Jung ordered a CT Guided Biopsy and that was faxed to [facility] melissa. Also, I let her know that note from office visit is not yet completed., but when com plete I will fax it to her for their records. She provided me with F# of [phone]. -Emili then provided me with patient background information in regards to line placement, l ine orders and managing providers. She stated its a bit confusing and she will fax me teleph one encounters as well as word doc with timeline for Dr. Jung to review. I thanked her for the information and will be waiting for Document for Dr. Jung to review. elephone Encounter - Tabatha Cruz Whiting Machine Operator - 06/14/2019 10:00 AM ROSACalcurly: LISA Mock Relationship to Patient: RN from [facility] Call Back Number: [phone] Message: Emili RN from [facility] called office and left message on MA phone. Message left stated: " 1st Request: I just spoke to Nikki, she came in on the with Dr. Jung. Some of our con cerns was that because we are just a primary care clinic we don't manage PICC lines. My firs t question is kind of what's going on with PICC line,and were there any orders written for her to go somewhere to have bandage change and dressing changed. I called previously and dis cussed that how we don't carry the supplies and cant write orders for it, but because Dr. Ashu rico will be managing that . But if necessary and she was able to get supplies through our o ffice she can bring them to clinic and I am able to do that change in clinic. We do have a r oom for that. 2nd request: If we can get records from yesterday's visit 06/13/2019 so that w ay we can update our system because she had said that there was a referral out for a biopsy, when we can get that in our system [facility] can be an additional payer for that. If you can call me back at [phone]. If you have the records available can you please fax to r medical records fax. F# is [phone], and I will talk to you later."Electronically sign ed by Tabatha Patel, Whiting Machine Operator at 06/14/2019 10:51 AM PDTdocumented in this encounte r Plan of Treatment Not on filedocumented as of this encounter Visit Diagnoses Not on filedocumented in this encounter
--- OUTSIDE RECORDS SUMMARY | ~2020-03-21 | XMS | Encounter Summary ---
Demographics + + + | Address | [address] | | | [place] [address] | + + + | Home Phone [...] | Author | [facility] | | | and [place]it[place] | + + + | Organization | [facility] | | | and [place] | + + + | Address | Unknown | + + + | Phone | Unavailable | + + + Support + + + + + | Name | Relationship | Address | Phone | + + + + + | India Tilley | ECON | [phone] | | | | | [place], [place] | | | | | [address] | | + + + + + [...] Team Providers + +------+ + | Care Insole Beveler Name | Role | Phone | + [...] + | 11/08/ | Anesthesia | [facility] | Vinnie Last MD | | | 2018 | Event | [facility] | [address] | | | | | [address] | [place] | | | | | [place] | [phone] | | | | | [phone] | | | | | | [phone] | | | +--------+ + + + [...] +----+---+ + + | | 1 | Teaberry | | | | 2 | 43-degrees [...] +----+---+ + + | | 1 | Teaberry off | | | | 3 | [...] Sofya | 11/09/17 1700 by | | eral | gauge; 1; distraction; short | Jessie [...] | alysis | Chlorhexidine/Isopropyl Alcohol; | Wendy A Zhu, RN | User Epic | | | [...] encounter OR Notes Anesthesia Postprocedure Evaluation - Vinnie Last MD - 11/08/2017 2:53 PM PST ANESTHESIA POSTANESTHESIA EVALUATION Estefanipadma Tilley 72 y.o. female 1945 [id number] Procedure(s) Tunneled Hemodialysis Catheter Placement (N/A Abdomen) Cooperates? Yes Mental Status Performs simple tasks. Respiratory Satisfactory - Airway patent (self maintained). Cardiovascular Satisfactory - Blood pressure and heart rate acceptable Temperature Satisfactory Pain Satisfactory N/V Control Satisfactory Hydration Satisfactory - No signs of dehydration Complications None apparent Vitals: 11/08/17 1405 11/08/17 1410 11/08/17 1415 BP: 171/84 182/80 187/70 Pulse: 76 75 74 Temp: Resp: 15 12 11 SpO2: 97% 95% 96% Electronically signed by Vinnie Last MD 11/08/2017 14:53 [facility] Last MD at 2017 2:53 PM PSTAnesthesia Preprocedure Evaluation - Vinnie Last MD - 11/08/2017 11:07 A M PST ANESTHESIA PREANESTHESIA EVALUATION Estefani Tilley 72 y.o. female 1945 [id number] Procedure(s): Tunneled Hemodialysis Catheter Placement (N/A Abdomen) Medical history, anesthesia, medications, allergy, NPO status verified histories reviewed. ECG reviewed. Labs reviewed. Review of Systems / Med History Anesthesia History No anesthesia complications. Past Medical History: No date: Anemia No date: Arthritis No date: Back pain No date: Cancer (HCC) No date: Diabetes (HCC) No date: Heart disease No date: History of blood clots No date: Hypercholesteremia No date: Hypertension No date: Seasonal allergies. Cardiovascular (+) hypertension, pulmonary hypertension(-) angina Pulmonary Negative except where noted below. Neurology (+) CVA, back pain, chronic pain Renal (+) acute renal failure , Dialysis hemodialysis , Last dialysis: 11-06-17 Gastrointestinal/Hepatic (+) hyperlipidemia Endocrine (+) hypothyroidism (+) Diabetes:(+) obesity: BMI (30-39) Other (+) anemia, arthritis Cancer (+) breast cancer Physical Exam [...] (but were not limited to): nausea, pain, heart problems, periopera tive CV events, . Consenting person understands and agrees to proceed. Suspension of DNR/DNI discussed. The patient states she would like all measures taken for resuscitation should that be neces shar... Electronically Signed by: Vinnie Last MD ESi date/time: 11/08/2017 11:07 documented in this enco unter Plan of Treatment Not on filedocumented as [...] 11:44 | | | | | Starting Wed11/08/17 at 1144, | | AM PST | [...]
--- OUTSIDE RECORDS SUMMARY | ~2020-03-21 | XMS | Encounter Summary ---
Demographics + + + | Address | [address] | | | [place] [address] | + + + | Home Phone [...] Author | [facility] | | | and [place] | + + + | Organization | [facility] | | | and [place] | + + + | Address | Unknown | + + + | Phone | Unavailable | + + + Support + + + + + | Name | Relationship | Address | Phone | + + + + + | India Tilley | ECON | [phone] | | | | | [place], [place] | | | | | [address] | | + + + + + [...] Team Providers + +------+ + | Care Vehicle And Equipment Cleaner Name | Role | Phone | + +------+ + PCP | Unavailable | + +------+ + Encounter Details +--------+ + + + + | Date | Type | Department | Care Team | Description | +--------+ + + + + | 07/26/ | Hospital | [facility] | Anna Banegas MD | Unspecified Backache | | 2006 | Encounter | [address] | [address] | | | | | [address] | [place] | | | | | [place], [place] | [address] | | | | | [address] | | | | | | [phone] | | | +--------+ + + + [...]
--- OUTSIDE RECORDS SUMMARY | ~2020-03-21 | XMS | Encounter Summary ---
Demographics + + + | Address | [address] | | | [place] [address] | + + + | Home Phone [...] Author | [facility] | | | and [place] | + + + | Organization | [facility] | | | and [place] | + + + | Address | Unknown | + + + | Phone | Unavailable | + + + Support + + + + + | Name | Relationship | Address | Phone | + + + + + | India Tilley | ECON | [address] | | | | | [place], [place] | | | | | [address] | | + + + + + [...] Team Providers + +------+ + | Care Claim Clerk Name | Role | Phone | [...] [place], | | | | | ([facility]LY [facility]) | [place], | [place] [address] | | | | | | [place] [address] | Phone: | | | | | | Phone: | [phone] | | | | | | [phone] | Fax: | | | | | | Fax: | [phone] | | | | | | [phone] | | +--------+ + + + + + Encounter Details +--------+---------+ + + + | Date | Type | Department | Care Team | Description | +--------+---------+ + + + | 01/10/ | Office | [facility] | Santos Stephenson | Chronic kidney | | 2018 | Visit | SURGERY [address] | MD Kinga, FACS [address] | disease, stage V | | | | [address] [place], [place] | [facility] | (HCC) (Primary Dx); | | | | [address] | [place] [address] | Post-operative state | | | | [phone] | [phone] | | | | | | | [...] Placement; Surgeon: Nora Leo MD; Location : [facility] MAIN OR VEIN SURGERY Right 01/04/2018 Procedure: Right Transposed Basilic Vein to Proximal Radial Artery; Surgeon: Santos Stephenson MD, FACS; Location: [facility] MAIN OR Allergies Allergen Reactions [...]
--- OUTSIDE RECORDS SUMMARY | ~2020-03-21 | XMS | Encounter Summary ---
Demographics + + + | Address | [address] | | | [place] [address] | + + + | Home Phone | | + + + | Preferred Language | Unknown | + + + | Marital Status | Single | + + + | Mu-Ism Affiliation | Unknown | + + + | Race | Unknown | + + + | Ethnic Group | Unknown | + + + Author + + + | Author | [facility] | | | and [place] | + + + | Organization | [facility] | | | and [place] | + + + | Address | Unknown | + + + | Phone | Unavailable | + + + Support + + + + + | Name | Relationship | Address | Phone | + + + + + | India Tilley | ECON | [address] | | | | | [place], [place] | | | | | [address] | | + + + + + [...] Team Providers + +------+ + | Care Translator/Interpreter Name | Role | Phone | + [...] | [place] | [place] [address] | | | | | [place] [address] | | | | | | [phone] | | | +--------+ + + + [...] for comparison only - no result from [place]. | [facility] | + + + + +---------+ + + | Performing | Address | City/State/Zipcode | Phone Number | | Organization | | | | + +---------+ + + | [facility] | | | | + +---------+ + + documented in this encounter Visit Diagnoses Not on filedocumented in this encounter"
--- OUTSIDE RECORDS SUMMARY | ~2020-03-21 | XMS | Encounter Summary ---
Demographics + + + | Address | [address] | | | [place] [address] | + + + | Home Phone [...] Author | [facility] | | | and [place] | + + + | Organization | [facility] | | | and [place] | + + + | Address | Unknown | + + + | Phone | Unavailable | + + + Support + + + + + | Name | Relationship | Address | Phone | + + + + + | India Tilley | ECON | [phone] | | | | | [place], [place] | | | | | [address] | | + + + + + [...] Team Providers + +------+ + | Care Armored Cable Machine Operator Name | Role | Phone [...] | [phone] | | | | | [address] | | | | | | [phone] | | | +--------+--------+ + + + [...] in the designated area for the patient flower buncher or picker. Please contact the patient to let the patient know that the Rx is ready. The patient will need to provide a form of ID when p icking up the prescription. Please verify the patients ID at flower buncher or picker. elephon e Encounter - Ashli Blackman Cert MA - 12/19/2018 10:43 AM PDTOrder for wheel parul r was faxed to [email or web address]. elephon e Encounter - Soledad Marlow - 12/19/2018 10:[facility] TO GET AN UPDATE ON PATIENTS WHEEL CHAIR. elephone Ilia - Soledad Marlow - 12/19/2018 9:17 AM PDTPatient called s tating that she is out of her pain meds and needs a script. Dr Solitario wrote the last script . Patient called requesting refill. Medication: Percocet 5mg she thinks? Out in: 0 days Phone: [phone] Who will flower buncher or picker: Patient will have someone flower buncher or picker meds documented in this encounter Plan of Treatment Not on filedocumented as of this encounter Visit Diagnoses Not on filedocumented in this encounter"
--- OUTSIDE RECORDS SUMMARY | ~2020-03-21 | XMS | Clinical Summary ---
Demographics + + + | Address | [address] | | | [place] [address] | + + + | Home Phone [...] | Author | [facility] | | | and [place]it[place] | + + + | Organization | [facility] | | | and [place] | + + + | Address | Unknown | + + + | Phone | Unavailable | + + + Support + + + + + | Name | Relationship | Address | Phone | + + + + + | India Tilley | ECON | [address] | | | | | [place], [place] | | | | | [address] | | + + + + + [...] Team Providers + +------+ + | Care Electrical Contractor Name | Role | Phone | + [...] tablet by | 180 | 3 | 08/1 | | Activ | | (NORMODYNE) 300 MG | mouth 2 times daily. | tablet | | 4/20 | | e | | tablet | [...] | | + + + +---------+------+------+-------+ | cetirizine | Take 5 mg by mouth | | 0 | | | Activ | | (ZYRTEC) 10 mg | Daily. For allergies | | | | | e | | tablet | | | | | | | + + + +---------+------+------+-------+ | calcium acetate | Take 1 capsule by | 180 | 0 | 01/0 | | Activ | | (CALCIUM ACETATE) | mouth 4 times daily | capsule | | 9/20 | | e | | 667 mg capsule | (before meals and | | | 20 | | | | | nightly). | | | | | | + + + +---------+------+------+-------+ | melatonin 3 mg | Take 1 tablet by | | 0 | 01/0 | | Activ | | TABS | mouth nightly as | | | 9/20 | | e | | | needed for Insomnia. | | | 20 | | | + + + +---------+------+------+-------+ | traMADol (ULTRAM) | Take 1 tablet by | 20 | 0 | 01/0 | | Activ | | 50 mg tablet | mouth every 8 hours | tablet | | 9/20 | | e | | | as needed. | | | 20 | | | + + + +---------+------+------+-------+ | amLODIPine | Take 1 tablet by | 90 | 3 | 01/0 | | Activ | | (NORVASC) 5 mg | mouth 2 times daily. | tablet | | 9/20 | | e | | tablet | | | | 20 | | | + + + +---------+------+------+-------+ | losartan (COZAAR) | Take 1 tablet by | 90 | 3 | 01/0 | | Activ | | 100 MG tablet | mouth Daily. | tablet | | 9/20 | | e | | | | | | 20 | | | + + + +---------+------+------+-------+ | furosemide (LASIX) | Take 2 tablets by | 180 | 3 | 01/0 | | Activ | | 80 mg tablet | mouth 2 times daily. | tablet | | 06/02 | | e | | | | | | 20 | | | + + + +---------+------+------+-------+ | epoetin karthik | Inject 4,000 Units | | 0 | | | Activ | | (EPOGEN) 10,000 | into the vein Three | | | | | e | | units/mL injection | times a week. | | | | | | + + + +---------+------+------+-------+ Active Problems + + + | Problem | Noted Date | + + + | Cellulitis of left lower extremity | 01/18/2020 | + + + | Pleural effusion, left | 10/30/2019 | + + + | Influenza A | 10/30/2019 | + + + + + | Overview: 10/30/2019: Influenzae A PCR (+) / Influenza B PCR | | (-) | + + + + + | Fluid overload | 09/18/2019 | + + + | Hypoxia | 05/20/2019 | + + + | Osteomyelitis of thoracic region | 05/20/2019 | + + + | Pulmonary hypertension, mild | 03/25/2019 | + + + + + | Overview: ECHO 03/25/2019: mld pulmonary hypertension, | | estimated right ventricular systolic pressure (RVSP) is 49 | | mmHECHO 10/2017: Mild to moderate pulmonary hypertension with a | | peak systolic pressure of 50-55 mmHg. | + + + + + | probable Discitis of thoracic region | 03/24/2019 | + + + | Closed right hip fracture | 12/04/2018 | + + + | Non-compliance | 12/04/2018 | + + + | Closed fracture of neck of right femur | 12/04/2018 | + + + | GERD (gastroesophageal reflux disease) | 07/07/2018 | + + + | ESRD (end stage renal disease) on dialysis | 01/25/2018 | + + + + + | Overview: ericka | | secondary to diabetic glomerular sclerosis | + + + + + | Marijuana use | 11/08/2017 | + + + | Poor historian | 11/08/2017 | + + + | Chronic renal insufficiency, stage IV (severe) | 11/08/2017 | + + + + + | Overview: [id number]: GFR 0's-20's, now on dialysis | + + + + + | RBBB (right bundle branch block) | 10/01/2017 | + + + | Facial cellulitis | [...] | 09/14/2007 | + + + | Depression | 09/12/2007 | + + + + + | Overview: Overview: Well controlled on Cymbalta. Trials | | SSRIs (lexapro, serzone, wellbutrin, celexa, remeron) in past. | |celexa, remeron) in past. | + + + + + | H/O LEFT Beast cancer - 2006 | 09/12/2007 | + + + + + | Overview: Overview: | | mastectomy L Oct 19 with chemo [facility] | | | | s/p left mastectomy in 2004, s/p chemotherapy | + + + + + | DJD (degenerative joint disease) | 09/12/2007 | + + + + + | Overview: Overview: | | x 10 years. Trials sulfasalazine, hydroxychlorquine, arava | | | | IMO Problem List Replacement - 2017_Regulatory_1 | + + + + + | Other chronic pain | 09/12/2007 | + + + + + | Overview: Overview: | | Several no shows, Dr. Odom will NOT continue narcotics. | + + +--------+---+ | Anemia | | +--------+---+ + + | Overview: Formatting of this note might be different from the | | original.Hematocrit Date Value Ref Range Status 10/30/2019 37.3 | | 34.0 - 47.0 % Final 09/19/2019 35.4 34.0 - 47.0 % Final | | 09/18/2019 38.8 34.0 - 47.0 % Final 05/24/2019 25.9 (L) 34.0 - | | 47.0 % Final | |10/30/2019 37.3 34.0 - 47.0 % Final | |09/19/2019 35.4 34.0 - 47.0 % Final | |09/18/2019 38.8 34.0 - 47.0 % Final | |05/24/2019 25.9 (L) 34.0 - 47.0 % Final | + + + +---+ | Arthritis | | + +---+ | Back pain | | + +---+ | History of blood clots | | + +---+ | Cancer | | + +---+ | Heart disease | | + +---+ | HTN (hypertension) | | + +---+ | Seasonal allergies | | + +---+ | Diabetes mellitus type II, non insulin dependent - DIET Control | | + +---+ + + | Overview: Formatting of this note might be different from the | | original.See A1c HistoryHemoglobin A1c Date Value Ref Range | | Status 09/20/2019 6.1 (H) 4.3 - 6.0 % Final 12/06/2018 6.6 (H) | | 4.3 - 6.0 % Final 10/02/2017 9.1 (H) 4.3 - 6.0 % Final | |09/20/2019 6.1 (H) 4.3 - 6.0 % Final | |12/06/2018 6.6 (H) 4.3 - 6.0 % Final | |10/02/2017 9.1 (H) 4.3 - 6.0 % Final | + + + +---+ | Hyperlipidemia | | + +---+ Encounters +--------+ + + + + | Date | Type | Specialty | Care Team | Description | +--------+ + + + + | 01/21/ | Telephone | Nephrology | Jose Cruzthall, | Other | | 2020 | | | KAYLA Lopez | | +--------+ + + + + | 01/17/ | Hospital | | Hair Ramos, | ESRD on dialysis | | 2019 - | Encounter | | Haris Law, | ([facility]) (Primary Dx); | | | | | | Hypoxia; Leg edema, | | 01/19/ | | | | left; Non-occlusive | | 2019 | | | | thrombus; Poor | | | | | | social situation; | | | | | | ESRD (end stage | | | | | | renal disease) on | | | | | | dialysis ([facility]); | | | | | | Anemia due to | | | | | | chronic kidney | | | | | | disease, on chronic | | | | | | dialysis ([facility]); | | | | | | Hypervolemia, | | | | | | unspecified | | | | | | hypervolemia type; | | | | | | Essential | | | | | | hypertension; Anemia | | | | | | due to end stage | | | | | | renal disease ([facility]); | | | | | | Secondary | | | | | | hyperparathyroidism | | | | | | ([facility]); Cellulitis of | | | | | [...] mild | | | | | | ([facility]); Arthritis; | | | | | | History of blood | | | | | | clots; Cancer ([facility]); | | | | | | Heart [...] infarction | | | | | | ([facility]); Marijuana | | | | | | use; Chronic renal | | | | | | insufficiency, stage | | | | | | IV (severe) ([facility]); | | | | | | Non-compliance; | | | | | | probable Discitis of | | | | | | thoracic region; | | | | | | Osteomyelitis of | | | | | | thoracic region | | | | | | ([facility]); Pleural | | | | | | effusion, left; | | | | | | Influenza A; RBBB | | | | | | (right bundle branch | | | | | | block) | +--------+ + + + + | 12/24/ | Off-Site | Nephrology | Gopi Muñoz | ESRD (end stage | | 2020 | Visit | | M, DO | renal disease) on | | | | | | dialysis ([facility]) | | | | | | (Primary Dx) | +--------+ + + + + from Last 3 Months Immunizations + + + + | Name | Administration Dates | Next Due | + + + + | HEP B, 3 DOSE | 06/22/2002, 07/18/2001, 06/15/2001 | | | (ADULT) | | | + + + + | Hep B, Dialysis, 4 | 05/15/2019, 01/21/2018, 12/17/2017, | | | Dose | 11/19/2017 | | + + + + | INFLUENZA PF 66 Y OR | 06/16/2019, 06/03/2018 | | | >,TRIVALENT (FLUAD) | | | + + + + | INFLUENZA PF | 09/23/2017, 05/19/2016 | | | QUAD(PED/ADOL/ADULT) | | | | ,PSKT or VIAL | | | + + + + | INFLUENZA PF | 06/28/2015 | | | TRIVALENT(PED/ADOL/A | | | | DULT)TRUDIKT | | | + + + + | INFLUENZA QUADR | 06/27/2014 | | | W/PRES | | | | (PED/ADOL/ADULT) | | | | MULTIDOSE | | | + + + + | INFLUENZA, [id number], | 08/28/2009 | | | UNSPECIFIED | [...] | | + + + + | ZOSTER NON-LIVE | 08/07/2019 | | | (SHINGRIX) | | | + + + + [...] on file | | + + + Last Filed Vital Signs + [...] Health Maintenance | Due Date | Last | Comments | | | | Done | | + + + + + [...] + | Vaccine: Zoster (3 | | 08/07/20 | | | of 3) | 0 | 19, | | | | | 01/28/20 | | | | | 12 | | + + + + + | Hemoglobin A1c | | 09/20/19 | | | Screening | 0 | 20, | | | | | 12/07/19 | | | | | 19, | | | | | 10/02/19 | | | | | 18, | | | | | Addition | | | | | al | | | | | history | | | | | exists | | + + + + + | Vaccine: Influenza | | 06/16/20 | | | (#1) | 0 | 19, | | | | | 06/03/20 | | | | | 18, | | | | | 09/23/19 | | | | | 18, | | | | | Addition | | | | | al | | | | | history | | | | | exists | | + + + + + | Vaccine: | | 06/17/20 | | | Dtap/Tdap/Td (2 - | 0 | 10, | | | Td) | | 06/22/20 | | | | | 02, | | | | | 07/03/19 | | | | | 92 | | + + + + + | Vaccine: | Completed | 02/12/20 | | | Pneumococcal 65+ | | 16, | | | | | 07/30/20 | | | | | 11, | | | | | 07/30/20 | | | | | 11, | | | | | Addition | | | | | al | | | | | history | | | | | exists | | + + + + + | Hepatitis C | Completed | 01/20/20 | | | Screening | | 20, | | | | | 11/03/19 | | | | | 18 | | + + + + + [...] | Right: | CATIA | | | [id number] | | 6.5x85mm - | | Hip | MEDICAL - | | | S / / | | [id number]: Qty: 2 | | | STRY | | | | | on 12/04/2018 by Ga, | | | | | | | | Scott John MD at [facility] | | | | | | | | [facility] | | | | | | | + +-------+--------+ +--------+--------+--------+ | Screw Asnis 3 Ti 20mm | Screw | Right: | CATIA | | | [id number] | | 6.5x90mm - | | Hip | MEDICAL - | | | S / / | | [id number]: Qty: 1 | | | STRY | | | | | on 12/04/2018 by Ga, | | | | | | | | Scott John MD at [facility] | | | | | | | | [facility] | | | | [...] + + from Last 3 Months Results POC Glucose (01/20/2020 12:18 PM PDT)Only the most recent of 7 results within the time skyla od is included. + +---------+ + + + | Component | Value | Ref Range | Performed | Pathologist | | | | | At | Signature | + +---------+ + + + | Glucose, | 143 (H) | 70 - 109 mg/dL | [facility] | | | POC | | | [...] [address] | [place] | [phone] | | [facility] | | [address] | | | - LABORATORY | | [...] test | | | | | | ([id number]). | | | | + + + + + + + + | Specimen | + + | Blood | + + + + + | Narrative | Performed At | + + + | Performed at: 01 - [facility] [place] [address] [address] [address], | REFERENCE LAB | | [place], [place] [id number] [place]: Ernie Lee MD, Phone: | [facility] | | [phone] | | + + + + + + + + | Performing | Address | City/State/Zipcode | Phone Number | | Organization | | | | + + + + + | REFERENCE LAB | [address] | [place], [place] | [phone] | | [facility] | [address] [place] | [address] | | + + + + + [...] + + | Performed at: 01 - [facility] [place] [address], | REFERENCE LAB | | [place], [place] [id number] [place]: Ernie Lee MD, Phone: | [facility] | | [phone] | | + + + + + + + + | Performing | Address | City/State/Zipcode | Phone Number | | Organization | | | | + + + + + | REFERENCE LAB | [address] | [place], [place] | [phone] | | [facility] | [address] | [address] | | + + + + + [...] + + | Performed at: 01 - [facility] [address], | REFERENCE LAB | | [place], [place] [id number] [place]: Ernie Lee MD, Phone: | [facility] | | [phone] | | + + + + + + + + | Performing | Address | City/State/Zipcode | Phone Number | | Organization | | | | + + + + + | REFERENCE LAB | [address] | [place], [place] | [phone] | | [facility] | [facility] | [address] | | + + + + + [...] + | Performed at: 01 - [facility] [place] [address], | REFERENCE LAB | | [place], [place] [id number] [place]: Ernie Lee MD, Phone: | [facility] | | [phone] | | + + + + + + + + | Performing | Address | City/State/Zipcode | Phone Number | | Organization | | | | + + + + + | REFERENCE LAB | [address] | [place], [place] | [phone] | | [facility] | [facility] | [address] | | + + + + + Protime INR (01/20/2020 4:11 AM PDT)Only the most recent of 3 results within the time skyla od is included. + + + + + [...] + | [facility] | [address] | [place] | [phone] | | [facility] | | [address] | | | - LABORATORY | | | | + + + + + CBC no Differential (01/20/2020 4:11 AM PDT)Only the most recent of 2 results within the period is included. + + + + [...] | | nRBC | | K/uL | [facility] | | [...] [address] | [place] | [phone] | | [facility] | | [address] | | | - LABORATORY | | | | + + + + + Phosphorus (01/20/2020 4:11 AM PDT)Only the most recent of 2 results within the time harshad kulkarni is included. + +---------+ + + + [...] + | [facility] | [address] | [place] | [phone] | | [facility] | | [address] | | | - LABORATORY | | | | + + + + + Magnesium (01/20/2020 4:11 AM PDT)Only the most recent of 2 results within the time period is included. + +-------+ + + + | Component | Value | Ref Range | Performed | Pathologist | | | | | At | Signature | + +-------+ + + + | Magnesium | 1.8 | 1.6 - 2.6 mg/dL | [facility] | [address] | [place], [place] | [phone] | | [facility] | | [address] | | | - LABORATORY | | | | + + + + + Basic Metabolic Panel (01/20/2020 4:11 AM PDT)Only the most recent of 2 [...] not | 12 (L)Comment: | >=60 | [facility] | | | | GLOMERULAR FILTRATION | mL/min/1.73m2 | [facility] | | | MALAYSIAN | RATE,ESTIMATED | | MEDICAL | | | | mL/min/1.16n4Zujr than | | CENTER - | | [...] | 8.9 | 8.7 - 10.4 | [facility] | | | | | mg/dL | [facility] | | | | | [...] [address] | [place] | [phone] | | [facility] | | [address] | | | - LABORATORY | | [...] [address] | [place] | [phone] | | [facility] | | [address] | | | - LABORATORY | | [...] [address] | [place] | [phone] | | [facility] | | [address] | | | - LABORATORY | | | | + + + + + Ferritin (01/19/2020 4:10 AM PDT) + + + + + + | Component | Value | Ref Range | Performed | Pathologist | | | | | At | Signature | + + + + + + | FERRITIN | 1,216 (H) | 7 - 271 ng/mL | [facility] | | | | [...] [address] | [place] | [phone] | | [facility] | | [address] | | | - LABORATORY | | [...] | chromogenic agar method. | | [facility] | | | [...] | [facility] | [address] | [place] | [phone] | | [facility] | | [address] | | | - LABORATORY | | [...] + + + | See Scanned | [facility] | | Report | | + [...] | + +---------+ + + Troponin I (01/18/2020 3:52 PM [...] | | | | | [employer] | | | | | [...] ST. | [address] | [place] | [phone] | | [facility] | | [address] | | | - LABORATORY | | | | + + + + + Sedimentation Rate (01/18/2020 3:52 PM PDT) + +--------+ + + + | Component | Value | Ref Range | Performed | Pathologist | | | | | At | Signature | + +--------+ + + + | Erythrocyte | 78 (H) | <30 mm/hr | [facility] | | | | | | [facility] | | | Sedimentati | | | [...] + | [facility] | [address] | [place] | [phone] | | [facility] | | [address] | | | - LABORATORY | | [...] 7.4 | 4.0 - 11.0 K/uL | [facility] [...] + | [facility] | [address] | [place] | [phone] | | [facility] | | [address] | | | - LABORATORY | | [...] >5000 (H)Comment: New | <100 pg/mL | [facility] | | | | method in use as of | | [facility] | | | | November 09, [...] [address] | [place] | [phone] | | [facility] | | [address] | | | - LABORATORY | | | | + + + + + PTT (01/18/2020 3:51 PM PDT) + +-------+ + + + | Component | Value | Ref Range | Performed | Pathologist | | | | | At | Signature | + +-------+ + + + | aPTT | 36 | 22 - 36 seconds | [facility] [...] [address] | [place] | [phone] | | [facility] | | [address] | | | - LABORATORY | | [...] + | [facility] | [address] | [place] | [phone] | | [facility] | | [address] | | | - LABORATORY | | [...] | | | | mg/dL | [facility] | | | | | | MEDICAL | | | | | | CENTER - | | | | | | LABORATORY | | + + + + + + | eGFR if not | 9 (L)Comment: GLOMERULAR | >=60 | [facility] | | | | FILTRATION | mL/min/1.73m2 | [facility] | | | MALAYSIAN | RATE,ESTIMATED | | MEDICAL | | | | mL/min/1.02o2Fjuk than | | CENTER - | | [...] | 8.8 | 8.7 - 10.4 | [facility] | | | | | mg/dL | [facility] | | | | | [...] | | | Total | | | [facility] | | | | | | MEDICAL | | | | | | CENTER - | | | | | | LABORATORY | | + + + + + + | Total | 8.2 | 5.7 - 8.2 g/dL | [facility] | | | Protein | | | [facility] | | [...] + | [facility] | [address] | [place] | [phone] | | [facility] | | [address] | | | - LABORATORY | | [...] MD | | | | | | ([id number]) on 01/19/2020 | | | | | [...] | | | + +---------+ + + from Last 3 Months Insurance [...] +--------+ +---------+--------+ | MEDICARE | MEDICA | [id number] | 04/13/20 | [phone] | | Medica | | | RE | | 11-Pre | 5 | | re | | | PART A | | sent | | | | | | AND B | | | | | | + +--------+ +--------+ +---------+--------+ | MEDICARE | MEDICA | [id number] | 04/13/20 | [phone] | | Medica | | | RE | | 11-Pre | 5 | | re | | | PART A | | sent | | | | | | AND B | | | | | | + +--------+ +--------+ +---------+--------+ | [facility] [facility] | [employer] | [id number] | | | | Indemn | | SERVICE | YELLOW | | 019-Pr | | | ity | | | HAWK | | esent | | | | + +--------+ +--------+ +---------+--------+ | [place]ICAID [place] | MEDICA | [id number] | 03/13/20 | [phone] | | Medica | | | ID [place] | | 17-Pre | 2 | | id | | | PLUS | | sent | | | | + +--------+ +--------+ +---------+--------+ | [employer] | IHS | [id number] | | | | Indemn | | [...] +--------+ +--------+ + + | Estefani Tilley R | Person | Self | [birth year] [address] | | | al/Fam | | 1945 | [phone] | [place] [address] | | | natali | | | 2 (Home) | | | | | | | [phone] | | | | | | | 0 (Work) | | + +--------+ +--------+ + + | Estefani Tilley | Person | Self | [birth year] [address] | | | al/Fam | | 1945 | [phone] | [place] [address] | | | natali | | | 2 (Home) | | | | | | | [phone] | | | | | | | 0 (Work) | | + +--------+ +--------+ + + Advance Directives + + + + + | Type | Date Recorded | Patient | Explanation | | | | Fisheries Biologist | | + + + + + | Power of | | | | | Blasting Contract Man | | | | + + + + + | Advance | 01/04/2018 2:03 | | LIVING WILL | | Directive | PM | | | + + + + + + + + + + | Code Status | Date | Date | Comments | | | Activated | Inactivated | | + + + + + | Full Code | 01/18/2020 | 01/20/2020 | | | | 9:30 PM | 6:35 PM | | + + + + + + + + +---+ | | | | | + + + +---+ | Full Code | 09/18/2019 | 09/21/2019 | | | | 8:09 PM | 5:33 PM | | + + + +---+ + + + +---+ | | | | | + + + +---+ | DNR (No | 05/20/2019 | 05/25/2019 | | | Code) | 8:41 PM | 4:11 PM | | + + + +---+ + + +---+ | RN or MD [...]
--- OUTSIDE RECORDS SUMMARY | ~2020-03-21 | XMS | Encounter Summary ---
Demographics + + + | Address | [address] | | | [place] [address] | + + + | Home Phone [...] | Author | [facility] | | | and [place] | + + + | Organization | [facility] | | | and [place] | + + + | Address | Unknown | + + + | Phone | Unavailable | + + + Support + + + + + | Name | Relationship | Address | Phone | + + + + + | India Tilley | E[place] | [address] | | | | | [place], [place] | | | | | [address] | | + + + + + [...] Team Providers + +------+ + | Care Ground Operations Crew Member Name | Role | Phone | + +------+ + PCP | Unavailable | + +------+ + Encounter Details +--------+ + + + + | Date | Type | Department | Care Team | Description | +--------+ + + + + | 01/03/ | Episode | [facility] | Mike Pearson | | | 2018 | Changes | SURGERY [address] | | | | | [place] | | | | | | [address] | | | | | | [phone] | | | +--------+ + + + [...]
--- OUTSIDE RECORDS SUMMARY | ~2020-03-21 | XMS | Encounter Summary ---
Demographics + + + | Address | [address] | | | [place] [address] | + + + | Home Phone [...] Author | [facility] | | | and [place] | + + + | Organization | [facility] | | | and [place] | + + + | Address | Unknown | + + + | Phone | Unavailable | + + + Support + + + + + | Name | Relationship | Address | Phone | + + + + + | India Tilley | [place] | [address] | | | | | [place], [place] | | | | | [address] | | + + + + + [...] Team Providers + +------+ + | Care Wind Farm Support Specialist Name | Role | Phone [...] | | | | | [address] [place], [place] | [place] [address] | | | | | [address] | [phone] | | | | | [phone] | | | +--------+ + + + [...]
--- OUTSIDE RECORDS SUMMARY | ~2020-03-21 | XMS | Encounter Summary ---
Demographics + + + | Address | [address] | | | [place] [address] | + + + | Home Phone [...] | Author | [facility] | | | and [place] | + + + | Organization | [facility] | | | and [place] | + + + | Address | Unknown | + + + | Phone | Unavailable | + + + Support + + + + + | Name | Relationship | Address | Phone | + + + + + | India Tilley | [place] | [address] | | | | | [place], [place] | | | | | [address] | | + + + + + [...] Team Providers + +------+ + | Care Local Government Legislator Name | Role | Phone | + +------+ + PCP | Unavailable | + +------+ + Encounter Details +--------+ + + + + | Date | Type | Department | Care Team | Description | +--------+ + + + + | 10/14/ | Hospital | [facility] | | | | 2006 - | Encounter | [facility] | | | | | | [facility] | | | | 11/10/ | | [place] | | | | 2006 | | [address] | | | | | | [phone] | | | +--------+ + + + [...]
--- OUTSIDE RECORDS SUMMARY | ~2020-03-21 | XMS | Encounter Summary ---
Demographics + + + | Address | [address] | | | [place] [address] | + + + | Home Phone [...] + + | Author | [facility] | | | and Kamaljitana | + + + | Organization | [facility] | | | and [place] | + + + | Address | Unknown | + + + | Phone | Unavailable | + + + Support + + + + + | Name | Relationship | Address | Phone | + + + + + | India Campos | ECON | [id number] | | | | | [place], [place] | | | | | [address] | | + + + + + [...] Team Providers + +------+ + | Care Parking Patroller Name | Role | Phone | + [...] + + | 10/01/ | Hospital | [facility] | Olegario Peng, | Hypertensive | | 2018 - | Encounter | [facility] | [address] | emergency; Chest | | | | [address] [place] | [place] | pain, unspecified | | 10/06/ | | [place] [address] | [id number] | type; Leg swelling; | | 2018 | | [phone] | | CKD (chronic kidney | | | | | Rupal Laguna MD | disease), stage IV | | | | | [address] | [facility] Type 2 | | | | | [place] | diabetes mellitus | | | | | [address] | with stage 4 chronic | | | | | | kidney disease, | | | | | Nikhil Vega, | with long-term | | | | | MD Mayelin [address] | current use of | | | | | [address] | insulin (HCC); | | | | | [place] [address] | Anemia of chronic | | | | | [phone] | renal failure, stage | | | [...] Keys MD - 10/06/2017 10:38 AM PST [facility] DISCHARGE SUMMARY Pt. Name/Age/: Ara Jimenez Andres 72 y.o. 1945 Date of Admission: 10/01/2017 [...] Specialty: Nephrology Why: at 4:30PM, at the [facility], [address], [place], [place], ([phone]). Contact information: [address], [address] [place] [address] Santos Stephenson MD, FACS In 2 weeks. Specialties: General Surgery, Vascular Surgery Why: Dr. Stephenson's Office, the Vascular Surgeon, will Call you with the time.* Contact information: [place] [address] RESULTS: Narrative TECHNIQUE: Renal and bladder B-mode [...] Electronically signed: 10/05/2017 8:51 PM Results for ARA CAMPOS Tony ( ) as of 10/06/2017 10:00 Ref. [...] 2.5 - 4.6 mg/dL 4.4 Results for ARA CAMPOS ( ) as of 10/06/2017 10:00 [...] pressures were in the 230 range at [facility] and she received IV hydralazine and was [...] signed by: Edison Keys MD, 10/06/2017 10:48 [facility] Portions of this chart may have been created with [email or web address] voice recognition software. Occasi onal wrong-word or sound-alike substitutions may have occurred due to the inherent mckeon itations of voice recognition software. Please read the chart carefully and recognize, using context, where these substitutions have occurred documented in this encounter Discharge Instructions Instructions Gopi Muñoz, DO - 10/06/20171. Please do a 24 Hour urine, and blood t est one week before your Appt. with Dr. Muñoz at the [facility]. 2. Dr. Stephenson Office, the Vascular Surgeon, [...] to come to the [facility] at [place], [place] for follow up on 11/08/17. We sent a Referral to Dr. Stephenson's Office for an outpt appt. for an AVF construction in the very near future. They will call her with the Appt. time per [place] policy. Will attempt to wait until AVF is mature before starting outpt HD, as long as uremic sympto ms do not intervene. Thanks. [facility] Edison Andrea M D - 10/05/2017 2:20 PM PST [facility] PMG Hospitalist Progress Note Ara Campos is a 72 y.o. female ASSESSMENT [...] that she should be followed by a forensic anthropologist night discussed this issue with her. I [...] as outlined above. Edison Keys 10/05/2017 14:[address] [facility] Portions of this chart may have been created with [email or web address] voice recognition software. Occasi onal wrong-word or sound-alike substitutions may have occurred due to the inherent mckeon itations of voice recognition software. Please read the chart carefully and recognize, using context, where these substitutions have occurred ayelin Engle MD - 10/04/2017 5:37 PM PST [facility] JA LOFTON HOSPITALIST PROGRESS NOTE Patient: Ara Campos : 1945: Age: 72 y.o. MedRec: [id number] Admission date: 10/01/2017 Hospital day # : [...] Nightly Rupal Laguna MD 40 mg at 2109 bisacodyl (DULCOLAX) suppository 10 mg 10 mg [...] Procedure Component Value Units Date/Time Culture, MRSA [[id number]] Collected: 10/02/17 0803 Order Status: Completed Lab [...] She reports feeling well with no complaints, CORTÉS resolved. LE swelling improved. Denies any new [...] and Plan 1. Hypertensive emergency- initially with CORTÉS and chest pressure- still with poor control [...] Code: FULL Mayelin Vega MD 10/04/2017 17:[address] [facility] Portions of this chart may have been created with [email or web address] voice recognition software. Occasi onal wrong-word or sound-alike substitutions may have occurred due to the inherent mckeon itations of voice recognition software. Please read the chart carefully and recognize, using context, where these substitutions have occurred olph, Ta Restrepo [facility] - 10/04/2017 10:15 AM PST PHARMACY SERVICES: ADMISSION MEDICATION REVIEW Ara Campos is a 72 y.o. female admitted [...] performed and electronically signed by Puja Whitman, Data Entry Supervisor 2017 10:09 Electronically signed by: Ta Ronquillo RPH 10/04/2017 10:14 Diann Sanders MD - 10/03/2017 12:46 PM PST [place], [place] HOSPITALIST PROGRESS NOTE Patient: Ara Campos : 1945: Age: 72 y.o. MedRec: [id number] Admission date: 10/01/2017 Hospital day # : [...] tablet 75 mcg 75 mcg Oral QAM JOSE Laguna MD 75 mcg at 10/03/17 0633 [...] Procedure Component Value Units Date/Time Culture, MRSA [[id number]] Collected: 10/02/17 0803 Order Status: Completed Lab Status: Final result Updated: 10/03/17 08 Specimen: Respiratory from Nares Culture Negative for [...] at bedside. She reports feeling better overall, CORTÉS resolved. LE swelli ng improved. Denies any [...] and Plan 1. Hypertensive emergency- initially with CORTÉS and chest pressure- will work on improving [...] Code: FULL Mayelin Vega MD 10/03/2017 12:[address] [facility] Portions of this chart may have been created with [email or web address] voice recognition software. Occasi onal wrong-word or sound-alike substitutions may have occurred due to the inherent mckeon itations of voice recognition software. Please read the chart carefully and recognize, using context, where these substitutions have occurred Mayelin Sanders MD - 10/02/2017 9:13 AM PSTFormatting of this note might be different from the or iginal. [facility] DREA DREAJA HOSPITALIST PROGRESS NOTE Patient: Ara Campos : 1945: Age: 72 y.o. MedRec: [id number] Admission date: 10/01/2017 Hospital day # : [...] care glucose Recent Labs Lab 10/02/17 0739 10/01/17 2212 POCGLU 111* 194* Labs last 24 hours [...] ECGs available Confirmed by KEN ELLISON MD ([id number]) on 10/02/2017 7:49:20 AM Lipid Panel Collection [...] Procedure Component Value Units Date/Time Culture, MRSA [[id number]] Collected: 10/02/17802 Order Status: Sent Lab Status: [...] in the process of [facility]. Additionally, she reports being homeless up [...] and Plan 1. Hypertensive emergency- initially with CORTÉS and chest pressure- will work on improving [...] with tele Mayelin Vega MD 10/02/2017 9:[address] [facility] Portions of this chart may have been created with [email or web address] voice recognition software. Occasi onal wrong-word or sound-alike substitutions may have occurred due to the inherent mckeon itations of voice recognition software. Please read the chart carefully and recognize, using context, where these substitutions have occurred documented in this encounter H&P Notes Rupal Laguna MD - 10/01/2017 8:25 PM PST HISTORY AND PHYSICAL EXAMINATION Pt. Name/Age/: Ara Campos 72 y.o. 1945 Date of admission: (Not on file) Admitting Physician: Rupal Laguna Primary Care Physician: Nan Bruno History taken from: patient and past medical records Chief Complaint/Reason for Visit: Transferred from [place] for hypertensive emergency and CHF History of Present Illness: 72yoF w/ hx of IDDM, HTN, CKD IV, who presented to [facility] for leg swelling and central addie st pressure x2 weeks. Patient is a very poor historian, and cannot give me many specifics w ith relation to location of chest pressure, timing, or whether it has been worsening. She h ad seen her outpatient doctor about a week ago, and was placed on lasix at that time. She d enies any SOB, cough, fevers, abdominal pain. She has noticed that her UOP has decreased de spite being on the lasix. She endorses taking her BP meds as prescribed, but admits to poor compliance with her insulin. She has no hx of CAD or CHF. She was being referred to Dr. Lauro marte for evaluation of her kidney disease, but has not yet had an appointment. At [facility] ER, she was noted to be quite hypertensive, to 230 systolic. She was given hydr alazine and vasotec, per report, and is currently 167 systolic. BNP was 780, trop 0.033 @16 00. Labs sent to us are dated ?04/2017. Past Medical History: Past Medical History: Diagnosis Date Anemia Arthritis Back pain Cancer (HCC) Diabetes (HCC) Heart disease History of blood clots Hypercholesteremia Hypertension Seasonal allergies Past Surgical History: Procedure Laterality Date EYE SURGERY 2009 MASTECTOMY 2006 left ear NOSE SURGERY 2009 Allergies: Allergies Allergen Reactions Levofloxacin Lisinopril Naproxen Omeprazole Current Medications: Current Facility-Administered Medications Medication Dose Route Frequency Provider Last Rate Last Dose acetaminophen (TYLENOL) tablet 650 mg 650 mg Oral Q6H PRN Rupal Laguna MD aspirin chewable tablet 81 mg 81 mg Oral Daily Rupal Laguna MD atorvaSTATin (LIPITOR) tablet 40 mg 40 mg Oral Nightly Rupal Laguna MD bisacodyl (DULCOLAX) suppository 10 mg 10 mg Rectal Daily PRN Rupal Laguna MD dextrose 50% injection 12.5 g 12.5 g Intravenous PRN Rupal Laguna MD docusate sodium (COLACE) capsule 100 mg 100 mg Oral BID Rupal Laguna MD [START ON 10/02/2017] DULoxetine (CYMBALTA) DR capsule 30 mg 30 mg Oral Daily Rupal petersen MD [START ON 10/02/2017] furosemide (LASIX) injection 40 mg 40 mg Intravenous BID (8 and 1 6) Rupal Laguna MD gabapentin (NEURONTIN) capsule 200 mg 200 mg Oral BID Rupal Laguna MD heparin 5,000 units/mL injection 5,000 Units 5,000 Units Subcutaneous 2 times per day Rupal Laguna MD HYDROcodone-acetaminophen (NORCO) 5-325 mg per tablet 1-2 tablet 1-2 tablet Oral Q4H P RN Rupal Laguna MD insulin glargine (LANTUS) 100 units/mL injection (vial) 10 Units 10 Units Subcutaneous Nightly Rupal Laguna MD insulin lispro (humaLOG KWIKPEN) 100 units/mL injection (pen) 0-6 Units 0-6 Units Subc utaneous 4x Daily WC and HS Rupal Laguna MD [START ON 10/02/2017] levothyroxine (SYNTHROID) tablet 75 mcg 75 mcg Oral QAM AC Isaac Laguna MD morphine injection 2-4 mg 2-4 mg Intravenous Q4H PRN Rupal Laguna MD nitroglycerin in dextrose 100 mcg/mL infusion 5-250 mcg/min Intravenous Titrated Abbie Laguna MD [START ON 10/02/2017] pantoprazole (PROTONIX) DR tablet 40 mg 40 mg Oral QAM AC Rupal Laguna MD polyethylene glycol (MIRALAX) powder 17 g 17 g Oral Daily PRN Rupal Laguna MD Current Outpatient Prescriptions Medication Sig Dispense Refill acetaminophen (TYLENOL) 325 mg tablet Take 650 mg by mouth every 4 hours as needed for Pain. artificial tears (AKWA TEARS) ophthalmic ointment Place into both eyes every hour as n eeded for Dry Eyes. atorvaSTATin (LIPITOR) 20 mg tablet Take 20 mg by mouth nightly. DULoxetine (CYMBALTA) [address] capsule Take 30 mg by mouth Daily. fexofenadine (IRINA) 180 mg tablet Take 180 mg by mouth Daily. fluticasone (FLONASE) 50 mcg/nasal spray 1 spray by Nasal route Daily. gabapentin (NEURONTIN) 100 mg capsule Take 200 mg by mouth 2 times daily. Plus one tabl et at noon PRN insulin glargine (LANTUS) 100 units/mL injection (vial) Inject 50 Units under the skin nightly. levothyroxine (SYNTHROID, LEVOTHROID) 75 MCG tablet Take 75 mcg by mouth every morning (before breakfast). Misc. Throat Products (OASIS MOISTURIZING MOUTHWASH MT) Take 1 oz by mouth 2 times maite y. pantoprazole (PROTONIX) 40 mg tablet Take 40 mg by mouth every morning (before breakfas t). traMADol (ULTRAM) 50 mg tablet Take 50 mg by mouth every 6 hours as needed for Pain. Family History: Family History Problem Relation Age of Onset Diabetes Other grandfather Diabetes Other grandmother Cancer Sister Social History: Social History Social History Marital status: Unknown Spouse name: N/A Number of children: N/A Years of education: N/A Occupational History Not on file. Social History Main Topics Smoking status: Never Smoker Smokeless tobacco: Not on file Alcohol use No Drug use: Unknown Sexual activity: Not on file Other Topics Concern Not on file Social History Narrative No narrative on file Review of Systems: A 12 system, 2 point review was conducted and is negative except as not ed in the HPI. Otherwise notable for chronic back pain, currently feels worse. Exam: Vital Signs on Arrival: on Most Recent Vital Signs: on Admission Weight: BMI: There is no height or weight on file to calculate BMI. Physical Examination: General: Alert, uncomfortable in bed from back pain, breathing comfortably, NAD HEENT: MMM, EOMI, PERRLA, no jvd appreciated Cardiovascular: Regular S1s2, no murmur Respiratory: CTAB Abdomen: S NT ND BS normoactive Genitourinary: deferred Extremities: 2+ LE edema to knees b/l Skin: No rashes Neurological: CN ii-xii intact, 5/5 strength throughout, sensation intact Psychiatric: appropriate Diagnostic Studies: Available Labs and Images were reviewed personally. Significant resul ts and findings are addressed below or in the Assessment and Plan. Code Status: FULL Assessment and Plan: 1. Hypertensive urgency vs emergency--BP is currently where I would like it for tonight (17 0-180 range). Can use nitro gtt as needed if BP rises again. Will repeat EKG here, monitor on tele, cycle troponins, obtain echo, and check LE dopplers to r/o DVT. Will diurese with lasix, monitor strict I/o's. 2. Chest pressure--may be related to above. Will do above measures, and will continue on a spirin and statin. Check a1c and lipid panels. 3. CKD iV--repeating labs right now, as previous creatinine has been around 1.8-2.3. Monit or closely with diuresis. 4. Hypothyroidism--continue levothyroxine 5. IDDM--poorly controlled. Placing on small dose of lantus 10 units nightly +SSI, as it s eems she is not compliant with the prescribed 40 units nightly. 6. Neuropathy--continue gabapentin. 7. HTN--holding losartan for now, but could be restarted tomorrow if BP remains stable over night. 8. GERD--continue PPI 9. Chronic back pain--pain control as needed. FEN: DM, cardiac, JUAN, 1L fluid restrict PPx: sub q hep, SCDs Code: FULL, per patient wishes on admission Dispo: INpatient, as will likely require >2MN hospital stay. Will keep in stepdown for shilpa se cardiac and BP monitoring. Electronically signed by: Rupal Laguna MD, 10/01/2017 20:25 [facility] Lab data: No results found for this or any previous visit (from the past 24 hour(s)). documented in this enc ounter Consult Notes Goip Muñoz, - 10/05/2017 9:43 PM PST [facility] [address] [place] [address] NEPHROLOGY CONSULT Pt. Name/Age/: Ara Campos 72 y.o. 1945 Med. Record Number: [id number] Date of admission: 10/01/2017 Reason for consultation: Stage IV CKD Referring Provider: Edison Keys MD HPI: This is a pleasant, 72 YO Female who was transferred from the ER at [facility], [place] on 10/01/17 with chest pain and hypertensive urgency. Her SBP apparently was up to "230 mmHg" per the admitting Team, at the referring Hospital but later was found to be 150/92 mmHg on arrival. She has been moderate ly hypertensive her requiring 3-4 meds . Note that her Scr was 1.82 mg/dl at [facility] in 03/09/17, then, 2.13 mg/dl in 05/06/17 a nd then was 2.97 mg/dl on admission. It is now up to 3.11 mg/dl with improvement in her BP. She also had very heavy proteinuria on both her UA's and her Upro/Cr ratio = 16.9 suggestin g that she has very heavy proteinuria. She does admit to Type 2 DM x ~30 years, but possi gabe longer? She does admit to background diabetic retinopathy in both eyes, requiring laser surgery in the past , x 2. Also, she admits to x at least 10 year, but possibly longer. Renal US has been obtained which shows the Right kidney to be 10.3 cm, the Left 9.2 cm , wi th increased echogenicity, but no evidence of obstruction. She denies any recent NSAID use, AMI, Hx o CHF, viral hepatitis , foamy urine or caroline urine. PAST MEDICAL HISTORY: 1. Type 2 DM x 30 years per the pt with retinopathy, nephropathy, and possibly neuropathy. 2. Hypertension x 10 years per the pt. 3. Normochromic, normocytic anemia suspicious for anemia 2' to CKD? 4. probable SHPTH, 2' to CKD . 5. Hyperlipidemia treated with a statin Rx, unknown duration per the pt. PAST SURGICAL HISTORY: 1. DAYNE with incidental appendectomy, in her "30's." 2. Tonsillectomy, ~age 11. 3. Laser Surgery , both eyes, last 2015, per the pt. Current Facility-Administered Medications: acetaminophen 650 mg Oral Q6H PRN amLODIPine 5 mg Oral BID aspirin 81 mg Oral Daily atorvaSTATin 40 mg Oral Nightly bisacodyl 10 mg Rectal Daily PRN dextrose 12.5 g Intravenous PRN docusate sodium 100 mg Oral BID DULoxetine 30 mg Oral Daily furosemide 40 mg Oral BID (8 and 16) gabapentin 200 mg Oral BID heparin 5,000 Units Subcutaneous 2 times per day HYDROcodone-acetaminophen 1-2 tablet Oral Q4H PRN insulin glargine 10 Units Subcutaneous Nightly insulin lispro 0-6 Units Subcutaneous 4x Daily WC and HS labetalol 200 mg Oral BID labetalol 10-20 mg Intravenous Q1H PRN levothyroxine 75 mcg Oral QAM AC ondansetron 4 mg Intravenous Q6H PRN pantoprazole 40 mg Oral QAM AC polyethylene glycol 17 g Oral Daily PRN Allergies Allergen Reactions Levofloxacin Lisinopril Pt states she does not remember what was the reaction she had to lisinopril. I asked her if it gave her a cough and she said "I cant remember, maybe it made me sick to my stomach". Naproxen Omeprazole SOCIAL HISTORY: Smoking: Doesn't smoke tobacco, but smokes cannabis almost daily. ETOH: denies. Single; lives independently, in [place]. FAMILY HISTORY: Father: in his 70's of [...] or monique nge in bowel habits. : See HPI. She denies dysuria, hematuria, frequency, flank pain, or nocturia. Endocrine: She denies polydipsia, polyuria, temperature intolerance, or thyroid disorders. Hematologic: She denies rashes, purpura, bleeding gums, or easy bruising. Musculoskeletal: She denies joint pain, arthralgias, synovitis, or any new deformity. Neuropsychiatric: She denies seizures, syncope, depression, or suicidal ideation. PHYSICAL EXAMINATION: BP 180/70 | Pulse 69 | Temp 36.5 C (97.7 F) (Oral) | Resp 16 | Ht 1.727 m (5' 8") | Wt 83.2 kg (183 lb 6.8 oz) | SpO2 100% | BMI 27.89 kg/m Intake/Output Summary (Last 24 hours) at 10/05/17 2144 Last data filed at 10/05/17 1943 Gross per 24 hour Intake 1368 ml Output 2200 ml Net -832 ml General: This is a well-developed, well-nourished, 72 year-old female who is alert and oriented x3, and in NAD. HEENT: Normocephalic. Pupils are 3 mm / 3 mm and reactive. EOMI. Fundoscopic exam was not p erformed. Posterior pharynx is clear, without injection. Neck: JVP's are < 7 cm at 45, no thyromegaly. Cardiovascular: Regular rate and rhythm, with grade 1-2/6 YADI at aortic area and LSB, no S3, or rub. Lungs: CTA in all gaytan. No rales or wheezes. Abdominal: Soft, flat, nontender, normoactive bowel sounds, no organomegaly, no guarding, no bru it. Extremities: 1-2+ edema, clubbing, cyanosis, or asterixis. No foot ulcers. Neurological: Nonfocal, nonlateralizing. Lab Results Component Value Date NA 137 10/04/2017 K 3.8 10/04/2017 CL 103 10/04/2017 CO2 28 10/04/2017 BUN 24 (H) 10/04/2017 CREA 3.11 (H) 10/04/2017 GFRNONAA 15 (L) 10/04/2017 GLU 105 10/04/2017 CALCIUM 8.4 10/04/2017 MG 1.7 (L) 10/04/2017 Lab Results Component Value Date WBC 5.1 10/04/2017 HGB 10.0 (L) 10/04/2017 HCT 30.9 (L) 10/04/2017 PLT 171 10/04/2017 MCV 89.8 10/04/2017 NEUPCT 59.6 10/04/2017 LYMPCT 30.1 10/04/2017 MONPCT 6.1 10/04/2017 EOSPCT 3.5 10/04/2017 Urine Pro/Cr ratio = Lab Results Component Value Date PROTEX 16.9 (A) 10/01/2017 IMPRESSION 1. Stage IV CKD, likely secondary to diabetic glomerulosclerosis + hypertension--no sympto ms of uremia, however the patient is close to ESRD. 2. Refractory hypertension--potentially this could help with maturation of a future AVF? 3. Probable anemia secondary to CKD--will benefit from BOYD therapy, outpatient. 4. Type II DM, requiring insulin, with nephropathy and retinopathy and possibly neuropathy ? 5. Probable SH PTH secondary to #1. 6. Hyperlipidemia--on statin therapy. Recommendations 1. I had a lengthy discussion with BMS that she does have well established CKD and then sh e likely will require outpatient dialysis in the next 6-12 months. I had a detailed discuss ion with her about the attendant lifestyle, features of outpatient CAPD versus hemodialysis. She is familiar with outpatient CAPD due to her mother had ESRD. For now she is leaning t owards hemodialysis. I discussed with her that basically when CKD patient's develop a GFR i s <15 ml/minute, then these patient's do better on outpatient dialysis. Also, it would be i deal to start this on outpatient basis with an established dialysis access, i.e. gambell AVF. 2. I would favor sending her directly to Dr. Santos Stephenson for early construction of an AVF. Given her current GFR the timing will be close, but her GFR may improve in the next 6 8 weeks S/P correction of her recent hypertensive urgency. However, only time will tell. 3. She may benefit from an ACEI or ARB, low dose given her heavy proteinuria and CV risk f actors. 4. Candidate discussed with her that she should refrain from any NSAID use in the near fut ure as this would curtail remaining GFR she has. 5. Will plan to see her back in approximately one month at the CKD clinic at [facility], [place]. Thank you for the chance to see this very interesting patient. Please feel free to call me at any time, if any questions arise. [facility] CC: Edison Keys M.D. [facility] Santos Stephenson MD, FACS ouseAngelina, RDN - 10/04/2017 2:24 PM PSTAssociated Order(s): IP CONSULT TO NUTRITION SERVICES; IP CONS ULT TO NUTRITION SERVICES NUTRITION THERAPY NOTE Summary Pt very teary about a DM Renal diet. States there is no way she can afford to foll ow this kind of diet and won't be able to follow it. Estimated Energy and Protein Needs: (based on 67 kg) Kcal needs: 9645-3240 Kcals/day Protein needs:67-84 grams of protein/day Fluid goal:2784-6908 cc fluid per day Nutrition Plan of Care: Nutrition Diagnosis: Food and nutrition-related knowledge deficit related to chronic illne ss of DM, CKD and HTN as evidenced by verbalization from the pt not having education Interventions: 1. Provided written information on a DM renal diet 2. Discussed with pt and family Nutrition Goals: 1. To follow suggested guidelines 2. To meet nutritional needs Monitor: 1. Nutritional parameters 2. Ed needs F/u in 2 days. Available as needed, ext [phone] Assessment: Diet Order: For your reference, current, active order is: Diet consistent carb; fat and cholesterol modified; sodium restricted 2 gm; 1000 ml fluid; Effective Now Intake 25-100% Labs: Recent Labs 10/04/17 0506 10/03/17 0629 10/02/17 1637 10/02/17 0241 10/01/17 2112 NA 137 138 139 139 140 K 3.8 4.1 4.7 4.7 4.7 CL 103 105 109 112* 111* BUN 24* 25* 26* 27* 25* CREA 3.11* 3.06* 3.13* 3.03* 3.05* ALBUMIN -- -- -- -- 2.6* MG 1.7* 1.8 -- 1.8 1.8 TRIG -- -- -- 119 -- Anthropometrics: Height: 172.7 cm (5' 8") Weight: 83.7 kg (184 lb 8.4 oz) Wt Readings from Last 3 Encounters: 10/04/17 83.7 kg (184 lb 8.4 oz) Body mass index is 28.06 kg/m. Weight change: -1.9 kg (-4 lb 3 oz) First: 88.3 kg (10/01/17 2100)Last: 83.7 kg (10/04/17 0600)Difference: -4.6kg Electronically Signed by: Angelina Tucker RDN 10/04/2017 14:24 docu mented in this encounter Miscellaneous Notes Plan of Care - Margaret Dempsey MSW - 10/06/2017 4:50 PM PSTProblem: Discharge Planning Goal: Patient will be discharged in a safe manner Outcome: Improving Spoke with patient about her follow up appt scheduled with Nan Bruno at [facility] at 1000 . Asked her if she is agreeable to go to this appt, she states that s he will go and will request a new provider at that time. Asked her if she would like visits from the [facility] at [facility], she states that she does not want visits at this time. Called LISA Mock [facility] and left her a VM letting her know that lee ent does not want visits but is agreeing to a follow up appt. D/c summary faxed to [facility]. She has no other concerns. Family in room and will transport home. Electronically signed by : JENNIFER Perkins 10/06/2017 16:50 lan of Care - Jason Adhikari RN - 10/06/2017 3:32 PM PSTProblem: Patient Care Overview (Adult) Goal: Care Team Goals & Evaluation PROBLEM-RELATED GOALS: 1. Ara will be free of falls through 10/07/17 2. Ara will be free of nausea by 10/07/17 3. Ara's blood pressures will be in normal range by 10/07/17 STRATEGY TO ACHIEVE GOALS: 1. Assist pt with ambulation and transfers, encourage pt to call for needs appropriately pr ior to transferring self 2. Assess and monitor for nausea, treat as needed with PRN medications or non-pharmacologic al pain control methods 3. Assess vital signs frequently for hypertension, take blood pressure manually, treat as n eeded with PRN medications Outcome: Adequate for Discharge Date Met: 10/06/17 Goal Evaluation: Free from falls. Free from nausea. Blood pressure decreased today to 140/70. Educated on f ollow up care and medication management. Discharged home with SO. lan of Care - Dalia Miramontes RN - 10/06/2017 4:09 AM PSTProblem: Patient Care Overview (Adult) Goal: Care Team Goals & Evaluation PROBLEM-RELATED GOALS: 1. Ara will be free of falls through 10/07/17 2. Ara will be free of nausea by 10/07/17 3. Ara's blood pressures will be in normal range by 10/07/17 STRATEGY TO ACHIEVE GOALS: 1. Assist pt with ambulation and transfers, encourage pt to call for needs appropriately pr ior to transferring self 2. Assess and monitor for nausea, treat as needed with PRN medications or non-pharmacologic al pain control methods 3. Assess vital signs frequently for hypertension, take blood pressure manually, treat as n eeded with PRN medications Goal Evaluation: Pt denies pain, SOB, nausea or vomiting. She has a flat affect and is forgetful. She is independent in her room. She complains that we have not given her the f ood she is requesting. I tried to discuss this with her to see what I would get her, but she refused. lan of Care - Jason Bustos RN - 10/05/2017 7:48 PM PSTProblem: Patient Care Overview (Adult) Goal: Care Team Goals & Evaluation PROBLEM-RELATED GOALS: 1. Ara will be free of falls through 10/07/17 2. Ara will be free of nausea by 10/07/17 3. Ara's blood pressures will be in normal range by 10/07/17 STRATEGY TO ACHIEVE GOALS: 1. Assist pt with ambulation and transfers, encourage pt to call for needs appropriately pr ior to transferring self 2. Assess and monitor for nausea, treat as needed with PRN medications or non-pharmacologic al pain control methods 3. Assess vital signs frequently for hypertension, take blood pressure manually, treat as n eeded with PRN medications Outcome: Improving Goal Evaluation: Free from falls. Free from nausea. BP 170's/70-80s. Appears very depressed. Occasionally t earful. Makes statements like "nothing matters anymore" but denies suicidal ideations. Skin intact. Voiding. Ambulating independently. VSS. lan of Care - Jane mcgraw, Chaplain Low - 10/05/2017 7:23 PM PSTProblem: Patient Care Overview (Adult) Goal: Care Team Goals & Evaluation PROBLEM-RELATED GOALS: 1. Ara will be free of falls through 10/07/17 2. Ara will be free of nausea by 10/07/17 3. Ara's blood pressures will be in normal range by 10/07/17 STRATEGY TO ACHIEVE GOALS: 1. Assist pt with ambulation and transfers, encourage pt to call for needs appropriately pr ior to transferring self 2. Assess and monitor for nausea, treat as needed with PRN medications or non-pharmacologic al pain control methods 3. Assess vital signs frequently for hypertension, take blood pressure manually, treat as n eeded with PRN medications Spiritual Care Ara Campos is a 72 y.o. female who is admitted for CHF, acute (HCC) [I50.9]. Broadcast News Producer visit is in response to a nurse's spiritual care consult request. Spiritual Evaluation: Patient was sitting up in a bed. She was receptive to spiritual care although she was guar ded at first. She had a bowl of uneaten salad on her tray. She said that she does not eat food that touches each other because she is . A dietary staff member brought another salad later, but she did not like the edamame on it. She talked like she would not eat it, but then later complained that the presence of the straightedge machine operator helper and other staff kept he tony from eating her food while it was hot or cold. She is enduring several challenges includi ng the recent of her oldest daughter two months ago, a new need for kidney dialysis wh ich her mother from which she does not want, feelings of loneliness and lack of support from family and friends, and cultural preferences which are not known by st ambrocio. She finds deepest meaning in the [employer] ceremonies but she also attends a [facility] anderson restoration from time to time. She said that twice she traveled to [place] to [employer] at [place]. She would rather be there now. Her greatest present chal lenge seems to be whether to proceed with dialysis, as she fears, alone, to as her janelle jimenez . This thought made her very tearful. She is the oldest in her family, but feels the re is no one to be there for her. She has a boyfriend but he is not present at this time. Spiritual Interventions: Pilling Machine Operator attended, offered care, explored meaning, processed grief, and identified concerns . Spiritual Outcomes: Nikki was emotional at times and bitter at others. She feels that she is alone and while she says she does not want any one near her, her greatest concern is who would want to support her in her time of need. Spiritual Goals/Follow-up: Follow up as needed and as available. lan of Care - Dalia Siddiqui RN - 10/05/2017 3:43 AM PSTProblem: Patient Care Overview (Adult) Goal: Care Team Goals & Evaluation PROBLEM-RELATED GOALS: 1. Ara will be free of falls through 10/07/17 2. Ara will be free of nausea by 10/07/17 3. Ara's blood pressures will be in normal range by 10/07/17 STRATEGY TO ACHIEVE GOALS: 1. Assist pt with ambulation and transfers, encourage pt to call for needs appropriately pr ior to transferring self 2. Assess and monitor for nausea, treat as needed with PRN medications or non-pharmacologic al pain control methods 3. Assess vital signs frequently for hypertension, take blood pressure manually, treat as n eeded with PRN medications Goal Evaluation: Pt is AO. She denies pain, SOB, nausea or vomiting.. She has a fla t affect. She is independent in her room, except for night time. I've asked her to call to g et up to the bathroom. Her last BM was 10/04/17 lan of [facility] - Jeni, Ashli Jimenez RN - 10/04/2017 2:59 PM PSTProblem: Patient Care Overview (Adult) Goal: Care Team Goals & Evaluation PROBLEM-RELATED GOALS: 1. Ara will be free of falls through 10/07/17 2. rAa will be free of nausea by 10/07/17 3. Ara's blood pressures will be in normal range by 10/07/17 STRATEGY TO ACHIEVE GOALS: 1. Assist pt with ambulation and transfers, encourage pt to call for needs appropriately pr ior to transferring self 2. Assess and monitor for nausea, treat as needed with PRN medications or non-pharmacologic al pain control methods 3. Assess vital signs frequently for hypertension, take blood pressure manually, treat as n eeded with PRN medications Outcome: Improving Goal Evaluation: Nikki is alert and oriented, seems resistant to some changes such as medication management an d dietary adjustments when she is home. Continues with some elevated BP today, labetalol adm inister which was effective. Denies pain. Calls appropriately for assistance. lan [facility] - Margaret Dempsey MSW - 10/04/2017 12:46 PM PSTProblem: Discharge Planning Goal: Patient will be discharged in a safe manner Outcome: Improving This Cm called Emili and left her a VM asking her to follow up with this CM today to discus s this patient. This CM will encourage home visits for close follow up on medication managem ent and medical follow up. Also emphasized the importance of continued education regarding p atients diagnoses. Awaiting a call back, if this CM has not heard from patient by the time patient is ready to d/c, then this CM will call again. Electronically signed by: Margaret Dempsey, PHARMACY CLINICAL COORDINATOR 10/04/19 18 12:46 LATE ENTRY: Spoke with patient at length the evening of 10/04/16 about her discharge needs. Expressed the importance of her following up with her PCP for med management and hospital fo llow up. This CM had [facility] RN from [facility] on the phone to explain to patient h ow she can help her with her follow up and medical needs. Patient was very irritable stating things such as "I don't want that bitch in my house". Emili explained to her that Dr Rebecca allen is her PCP which is what made her VERY angry as she states that she doesn't like Dr Rebecca allen and does not feel that she is doing a good job at being her PCP. Emili explained that they could get her in as soon as 10/05 at 1400 and Emili would go pick her up and take her to her appt. She became angry and states "NO, I don't want to see that lady and I can't believe yo u are all making me do these things". We explained that we are not making her do anything bu t rather that we are trying to give her the resources available to her to meet her needs. Ex plained that the policy is that she see her PCP first, then submit request for a new PCP. Sh e cannot agree to see Dr Bruno for a follow up at this time and is very upset. Again, we e xplained that we are here to help her with some of the barriers she has run into such as tra nsportation, home visits for follow up, getting her in to see her PCP soon, etc. She continu es to hold on to the fact that she does not want to see Dr Bruno and continues to set up b arriers as to why she is in the position she is in (low income, lack of transport, lack of r esources/suppot). Asked patient to think it over night. Patient said she will establish with PCP from [facility], Emili explained that she may not get in right away as they just lost two physici ans. Hospitalist will keep her tonight and re-evaluate tomorrow. Patient began to state "I should just be " and was tearful. This Cm asked her if she cortés d thoughts of harming herself or other and she states "No, I just feel like everything is go ing wrong in my life". We talked about family, friends, which are important to her and she v autumncesilia. Patient has a tentative follow up appt on at the [facility]. CM will follow up with her and [facility] RN about what patient decides on her PCP, whether she want s to stay at [facility] or establish with [facility]. Electronically signed by: JENNIFER Rogers 10/05/2017 9:39 lan of Care - Lauryn Coyle RN - 10/04/2017 4:25 AM PSTProblem: Patient Care Overview (Adult) Goal: Care Team Goals & Evaluation PROBLEM-RELATED GOALS: 1. Ara will be free of falls through 10/07/17 2. Ara will be free of nausea by 10/07/17 3. Ara's blood pressures will be in normal range by 10/07/17 STRATEGY TO ACHIEVE GOALS: 1. Assist pt with ambulation and transfers, encourage pt to call for needs appropriately pr ior to transferring self 2. Assess and monitor for nausea, treat as needed with PRN medications or non-pharmacologic al pain control methods 3. Assess vital signs frequently for hypertension, take blood pressure manually, treat as n eeded with PRN medications Outcome: Improving Goal Evaluation: Flat affect. Homeless until 2 weeks ago, Nikki's daughter recently. Independent. SBP 150-170 this shift. Sats within normal limits on room air, lungs clear. lan of Care - Tony on, Laury Restrepo RN - 10/03/2017 4:19 PM PSTProblem: Patient Care Overview (Adult) Goal: Care Team Goals & Evaluation PROBLEM-RELATED GOALS: 1. Ara will be free of falls through 10/07/17 2. Ara will be free of nausea by 10/07/17 3. Ara's blood pressures will be in normal range by 10/07/17 STRATEGY TO ACHIEVE GOALS: 1. Assist pt with ambulation and transfers, encourage pt to call for needs appropriately pr ior to transferring self 2. Assess and monitor for nausea, treat as needed with PRN medications or non-pharmacologic al pain control methods 3. Assess vital signs frequently for hypertension, take blood pressure manually, treat as n eeded with PRN medications Goal Evaluation: Nikki had a relatively good day, no c/o nausea throughout this time yet. Was started on Cooz ar this morning, BP this morning was 172/90, remains on Tele- will continue to monitor. Evelia ins free of falls/injuries calls for assistance when needed. Has had multiple visitors. lan of [facility] - Tien Nguyen RN - 10/03/2017 5:25 AM PSTProblem: Patient Care Overview (Adult) Goal: Care Team Goals & Evaluation PROBLEM-RELATED GOALS: 1. Ara will be free of falls through 10/07/17 2. Ara will be free of nausea by 10/07/17 3. Ara's blood pressures will be in normal range by 10/07/17 STRATEGY TO ACHIEVE GOALS: 1. Assist pt with ambulation and transfers, encourage pt to call for needs appropriately pr ior to transferring self 2. Assess and monitor for nausea, treat as needed with PRN medications or non-pharmacologic al pain control methods 3. Assess vital signs frequently for hypertension, take blood pressure manually, treat as n eeded with PRN medications Goal Evaluation: Ara is A&O. C/o nausea this shift, treated with zofran x1 per pt request. Pt frustrated with frequent interruptions throughout the night, awakenings minimiz ed. Pt sleeping well through the night, calling appropriately. Ambulates to restroom SBA. BP 174/90 this AM. Will continue to monitor. lan of [facility] - Laury Angelo RN - 10/02/2017 2:56 PM PSTPt arrived to unit 1410, c/o nausea states, it is improved feels that it is related to her pain medication. She is not used to taking pain meds. Has been visiting with family. Appears comfortable. lan of Care - Roselyn, JENNIFER Riley - 10/02/2017 2:2 8 PM PSTProblem: Discharge Planning Goal: Patient will be discharged in a safe manner Outcome: Improving This briefcase sewer met with patient and her four family members to discuss discharge plans. Patient states that she lives in her own apartment in [place]. She states that her damaximilianoe r is staying there right now and her boyfriend stays there when he is not working. She repor ts that at baseline, she is independent and able to care for herself. She does not use any [place]. She reports that she is a member of the [facility]. She reports that she see Dr Nisha lee is what she calls her. She reports that she is not involved in any other programs thro [facility]. This CM mentioned a [facility] RN and asked if she has ever been visit ed. She states that she has not. This CM offered to call LISA Mock in [facility] to as k if she is able to do some home visits--a hospital follow up, med management, etc. She is a greeable to this. This Cm called Emili and left her a VM asking her to follow up with this Jann M on Wednesday and asked that she follow up with this patient for a continuum of care. Patient states that she does not anticipate any further needs at discharge. She uses [facility] for pharmacy and also uses [facility] as well. PLAN: Home with family transporting when stable. Pending [facility] To [facility] RN to follow up with lee ent after she discharges. Electronically signed by: JENNIFER Perkins 10/02/2017 14:28 eICU Note - Christina Arevalo RN - 10/02/2017 1:43 PM PSTReport to LISA Schaeffer for transfer to .Electronic ally signed by Christina Caputo RN at 10/02/2017 1:43 PM PSTdocumented in this encounter Plan of [...] 93 | 70 - 109 mg/dL | [facility] [...] [address] | [place] | [phone] | | [facility] | | [address] | | | - LABORATORY | | [...] + | [facility] | [address] | [place] | [phone] | | [facility] | | [address] | | | - LABORATORY | | [...] mL/min/1.73m2 | [facility] | | | [place] | | | MEDICAL | | | [...] [address] | [place] | [phone] | | [facility] | | [address] | | | - LABORATORY | | [...] [address] | [place] | [phone] | | [facility] | | [address] | | | - LABORATORY | | [...] ST. | [address] | [place], [place] | [phone] | | [facility] | | [address] | | | - LABORATORY | | [...] + | Anjum Jordan Results In - 10/05/2017 8:54 PM PST [...] + | Performing | Address | City/State/Unm Hospitalcode | Phone Number | | Organization [...] + | [facility] | [address] | [place] | [phone] | | [facility] | | [address] | | | - LABORATORY | | | | + + + + + POC Glucose (10/05/2017 6:52 AM PST) + +-------+ + + + | Component | Value | Ref Range | Performed | Pathologist | | | | | At | Signature | + +-------+ + + + | Glucose, | 88 | 70 - 109 mg/dL | [facility] [...] [address] | [place] | [phone] | | [facility] | | [address] | | | - LABORATORY | | [...] [address] | [place] | [phone] | | [facility] | | [address] | | | - LABORATORY | | [...] | [facility] | [address] | [place] | [phone] | | [facility] | | [address] | | | - LABORATORY | | [...] + | [facility] | [address] | [place] | [phone] | | [facility] | | [address] | | | - LABORATORY | | [...] [address] | [place] | [phone] | | [facility] | | [address] | | | - LABORATORY | | | | + + + + + Ferritin (10/04/2017 5:06 AM PST) + +-------+ + + + | Component | Value | Ref Range | Performed | Pathologist | | | | | At | Signature | + +-------+ + + + | FERRITIN | 71 | 11 - 307 ng/mL | [facility] | | | | [...] [address] | [place] | [phone] | | [facility] | | [address] | | | - LABORATORY | | [...] [facility] | | | | | | [facility] | | | | [...] + | [facility] | [address] | [place] | [phone] | | [facility] | | [address] | | | - LABORATORY | | [...] [address] | [place] | [phone] | | [facility] | | [address] | | | - LABORATORY | | [...] 105 | 70 - 109 mg/dL | [facility] [...] 3.11 (H) | 0.60 - 1.30 | [facility] | | | | | mg/dL | [facility] | | | | | | MEDICAL | | | | | | CENTER - | | | | | | LABORATORY | | + + + + + + | eGFR if not | 15 (L)Comment: | >=60 | [facility] | | | | GLOMERULAR FILTRATION | mL/min/1.73m2 | [facility] | | | [place] | RATE,ESTIMATED | | MEDICAL | | | | mL/min/1.70b9Uzrk than | | CENTER - | | [...] [address] | [place] | [phone] | | [facility] | | [address] | | | - LABORATORY | | [...] | | | Cells | | | [facility] | | | | | | MEDICAL | | | | | | CENTER - | | | | | | LABORATORY | | + + + + + + | Red Blood | 3.44 (L) | 3.70 - 5.20 | [facility] | | | Cells | | M/uL | [facility] | | | | | | MEDICAL | | | | | | CENTER - | | | | | | LABORATORY | | + + + + + + | Hemoglobin | 10.0 (L) | 11.5 - 16.0 | [facility] | | | | | g/dL | [facility] | | | | [...] [address] | [place] | [phone] | | [facility] | | [address] | | | - LABORATORY | | [...] + | [facility] | [address] | [place] | [phone] | | [facility] | | [address] | | | - LABORATORY | | [...] [address] | [place] | [phone] | | [facility] | | [address] | | | - LABORATORY | | [...] + | [facility] | [address] | [place] | [phone] | | [facility] | | [address] | | | - LABORATORY | | [...] + | [facility] | [address] | [place] | [phone] | | [facility] | | [address] | | | - LABORATORY | | | | + + + + + Magnesium (10/03/2017 6:29 AM PST) + +-------+ + + + | Component | Value | Ref Range | Performed | Pathologist | | | | | At | Signature | + +-------+ + + + | Magnesium | 1.8 | 1.8 - 2.5 mg/dL | [facility] | | | | | | [facility] | | | | | [...] ST. | [address] | [place], [place] | [phone] | | [facility] | | [address] | | | - LABORATORY | | [...] 3.06 (H) | 0.60 - 1.30 | [facility] | | | | | mg/dL | [facility] | | | | | | MEDICAL | | | | | | CENTER - | | | | | | LABORATORY | | + + + + + + | eGFR if not | 15 (L)Comment: | >=60 | [facility] | | | | GLOMERULAR FILTRATION | mL/min/1.73m2 | [facility] | | | [place] | RATE,ESTIMATED | | MEDICAL | | | | mL/min/1.55b3Iija than | | CENTER - | | [...] | | | | | mg/dL | [facility] | | | | [...] [address] | [place] | [phone] | | [facility] | | [address] | | | - LABORATORY | | | | + + + + + CBC with Differential (10/03/2017 6:29 AM PST) + + + + + + | Component | Value | Ref Range | Performed | Pathologist | | | | | At | Signature | + + + + + + | White Blood | 5.4 | 4.0 - 11.0 K/uL | [facility] | | | Cells | | | [facility] | | | | | | MEDICAL | | | | | | CENTER - | | | | | | LABORATORY | | + + + + + + | Red Blood | 3.38 (L) | 3.70 - 5.20 [...] | [facility] | [address] | [place] | [phone] | | [facility] | | [address] | | | - LABORATORY | | [...] [address] | [place] | [phone] | | [facility] | | [address] | | | - LABORATORY | | [...] 3.13 (H) | 0.60 - 1.30 | [facility] | | | | | mg/dL | [facility] | | | | | | MEDICAL | | | | | | CENTER - | | | | | | LABORATORY | | + + + + + + | eGFR if not | 15 (L)Comment: | >=60 | [facility] | | | | GLOMERULAR FILTRATION | mL/min/1.73m2 | [facility] | | | [place] | RATE,ESTIMATED | | MEDICAL | | | | mL/min/1.70b8Mpre than | | CENTER - | | [...] | 8.8 | 8.3 - 10.5 | [facility] | | | | | mg/dL | [facility] | | | | [...] [address] | [place] | [phone] | | [facility] | | [address] | | | - LABORATORY | | [...] ST. | [address] | [place], [place] | [phone] | | [facility] | | [address] | | | - LABORATORY | | | | + + + + + VAS Lower Extremity Venous Bilateral (10/02/2017 10:07 AM [facility]) + + | Specimen | + [...] ANDRES | | | ARA Room Number 454 R | | | Patient Number [id number] Date of Study | | | 10/02/2017 Visit Number [id number] Accession | | | [id number] Referring Physician LOY MATA Number | | | Date of 1945 Spool Cleaner Hand | | | WENDY HUDSON | | | SILVIA Age 72 year(s) | | | Interpreting CLAUDIA HUGHES MD | | | Medical Record Consultant Gender | | | Female Nurse | | | Stress Auto Tune Up Mechanic Procedure Type of Study TTE procedure: ECHO [...] | 71.7 ml | | | EF Tmjusxmlm48% Left Ventricle Diastolic Dimension: 5.37 cm | [...] Volume: 71.7 ml | | | EF Ytuaxtypi73% | | | | | | Left [...] | Julian, Rad Results In - 10/02/2017 9:41 AM [facility] Transthoracic Echocardiography Report | | (TTE) Demographics Patient Name ANDRES BRARA Room Number 454 | | R Patient Number [id number] Date of Study 10/02/2017 Visit Number | | [id number] Referring Physician LOY MATA Number | | Date of 1945 Spool Cleaner Hand WENDY HUDSON | | [facility] Age 72 year(s) Interpreting | | CLAUDIA HUGHES MD Medical Record Consultant Gender | | Female Nurse Stress TechnicianProcedureType [...] LA Volume: 71.7 ml EF | | Wfavztpmo57% Left Ventricle Diastolic Dimension: 5.37 cm Septum [...] LA Volume: 71.7 ml | | EF Jnsbxgzpr19% | | | | Left Ventricle | [...] [address] | [place] | [phone] | | [facility] | | [address] | | | - LABORATORY | | [...] [address] | [place] | [phone] | | [facility] | | [address] | | | - LABORATORY | | [...] | | es | | | [facility] | | | | | | MEDICAL | | | | | | CENTER - | | | | | | LABORATORY | | + + + + + + | Cholesterol | 198 | 150 - 200 mg/dL | [facility] | | | | | | [facility] | | | | | | MEDICAL | | | | | | CENTER - | | | | | | LABORATORY | | + + + + + + | HDL | 28Comment: New HDL | 28 - 83 mg/dL | [facility] | | | | Reference Range as [...] + | [facility] | [address] | [place] | [phone] | | [facility] | | [address] | | | - LABORATORY | | [...] | | A1c | | | [facility] | | [...] [address] | [place] | [phone] | | [facility] | | [address] | | | - LABORATORY | | [...] | | | | | | [employer] | | | | [...] [address] | [place] | [phone] | | [facility] | | [address] | | | - LABORATORY | | [...] + | [facility] | [address] | [place] | [phone] | | [facility] | | [address] | | | - LABORATORY | | [...] 3.03 (H) | 0.60 - 1.30 | [facility] [...] mL/min/1.73m2 | [facility] | | | [place] | RATE,ESTIMATED | | MEDICAL | | | | mL/min/1.06t9Ywuf than | | CENTER - | | [...] [address] | [place] | [phone] | | [facility] | | [address] | | | - LABORATORY | | | | + + + + + CBC with Differential (10/02/2017 2:41 AM PST) + + + + + + | Component | Value | Ref Range | Performed | Pathologist | | | | | At | Signature | + + + + + + | White Blood | 6.6 | 4.0 - 11.0 K/uL [...] [address] | [place] | [phone] | | [facility] | | [address] | | | - LABORATORY | | [...] | | | | KEN ELLISON MD ([id number]) | | | | | | on [...] + | [facility] | [address] | [place] | [phone] | | [facility] | | [address] | | | - LABORATORY | | [...] atelectasis versus pneumonia. Dictated and Signed by: Salvatroe Wang | | MD Enrique Electronically signed: 10/02/2017 [...] | | | | | | [employer] | | | | [...] + | Performing | Address | City[facility]State[facility] | Phone Number | | Organization | | | | + + + + + | [facility] | [address] | [place] | [phone] | | [facility] | | [address] | | | - LABORATORY | | | | + + + + + Protime INR (10/01/2017 9:12 PM PST) + + + + + + | Component | Value | Ref Range | Performed | Pathologist | | | | | At | Signature | + + + + + + | Prothrombin | 13.3 | 11.3 - 13.9 | [facility] | | | Time | | seconds | [facility] | | | | [...] [address] | [place] | [phone] | | [facility] | | [address] | | | - LABORATORY | | [...] + | [facility] | [address] | [place] | [phone] | | [facility] | | [address] | | | - LABORATORY | | [...] 3.05 (H) | 0.60 - 1.30 | [facility] | | | | | mg/dL | [facility] | | | | | | MEDICAL | | | | | | CENTER - | | | | | | LABORATORY | | + + + + + + | eGFR if not | 15 (L)Comment: | >=60 | [facility] | | | | GLOMERULAR FILTRATION | mL/min/1.73m2 | [facility] | | | [place] | RATE,ESTIMATED | | MEDICAL | | | | mL/min/1.28n7Csle than | | CENTER - | | [...] | | | | | mg/dL | [facility] | | | | | | MEDICAL | | | | | | CENTER - | | | | | | LABORATORY | | + + + + + + | Albumin | 2.6 (L) | 3.2 - 5.0 g/dL | [facility] | | | | [...] [address] | [place] | [phone] | | [facility] | | [address] | | | - LABORATORY | | | | + + + + + CBC with Differential (10/01/2017 9:12 PM PST) + + + + + + | Component | Value | Ref Range | Performed | Pathologist | | | | | At | Signature | + + + + + + | White Blood | 9.6 | 4.0 - 11.0 K/uL | [facility] | | | Cells | | | [facility] | | | | | | MEDICAL | | | | | | CENTER - | | | | | | LABORATORY | | + + + + + + | Red Blood | 3.16 (L) | 3.70 - 5.20 | [facility] | | | Cells | | M/uL | [facility] | | | | [...] [address] | [place] | [phone] | | [facility] | | [address] | | | - LABORATORY | | [...] | | | | | | at 2020 | | | | | [...] | | | | First dose on Wed10/05/17 at 1445 | | AM PST | [...] 18 9:43 | | | | | [facility] 10/01/17 at 2045 | | AM PST [...] Low | | | Blood Sugar, Starting Wed10/01/17 | | | at 2021 | | + +---+ | | | + +---+ + +-------+ +--------+---+---+ | docusate sodium (COLACE) | Given | 10/06/19 | 100 mg | | | | capsule 100 mg 100 mg, Oral, 2 | | 18 9:43 | | | | | TIMES DAILY, First dose on Fri | | AM PST | | | [...] (LASIX) tablet 40 mg | Given | 10/06/19 | 40 mg [...] | | | | | | on Wed10/01/17 at 2100, For | | | | [...] | | | | | NPO, Daytime 6090-1154 Use NIGHT | | | | | | | DOSE for doses scheduled: | | | | | | | HS, 3AM, Nighttime 6584-8172, | | | | | | + [...] | | | DAILY, First dose on Wed10/04/17 | | AM PST | | | [...] | | | | | modification) on Wed10/05/17 at | | | | | | [...] DAILY, First dose | | | on [facility] 10/07/17 at 0900 | | + +---+ | | | + +---+ + +-------+ +-------+---+---+ | losartan (COZAAR) tablet 50 mg | Given | 10/05/19 | 50 mg | | | | 50 mg, Oral, 2 TIMES DAILY, | | 18 8:27 | | | | | First dose on 10/03/17 at 0930 | | AM PST [...]
--- OUTSIDE RECORDS SUMMARY | ~2020-03-21 | XMS | Encounter Summary ---
Demographics + + + | Address | [address] | | | [place] [address] | + + + | Home Phone [...] | Author | [facility] | | | and Kamaljitana | + + + | Organization | [facility] | | | and [place] | + + + | Address | Unknown | + + + | Phone | Unavailable | + + + Support + + + + + | Name | Relationship | Address | Phone | + + + + + | India Tilley | [place] | [address] | | | | | [place], [place] | | | | | [address] | | + + + + + [...] Team Providers + +------+ + | Care [employer] Assistant Manager Name | Role | Phone | [...] [place], | | | | | ([facility]) | [place], | [place] [address] | | | | | | [place] [address] | Phone: | | | | | | Phone: | [phone] | | | | | | [phone] | Fax: | | | | | | Fax: | [phone] | | | | | | [phone] | | +--------+ + + + + + Encounter Details +--------+---------+ + + + | Date | Type | Department | Care Team | Description | +--------+---------+ + + + | 04/04/ | Office | [facility] | Santos Stephenson | Chronic kidney | | 2018 | Visit | SURGERY [address] | MD Kinga, FACS [address] | disease, stage V | | | | [address] [place] [facility], [place] | [address] [facility] | (HCC) (Primary Dx) | | | | [address] | [place] [address] | | | | | [phone] | [phone] | | | | | | | [...] can shower tomorrow. Patient to follow with service delivery director and primary care. I will be available should future s urgical complications develop. I appreciate having been involved in the care of this patien t. Santos Stephenson MD, FACS Vascular and General Surgery documented i lucien this encounter Plan of Treatment Not on filedocumented as of this encounter Visit Diagnoses + + | Diagnosis | + + | Chronic kidney disease, stage V (HCC) - Primary Chronic kidney disease, Stage V | + + documented in this encounter
--- OUTSIDE RECORDS SUMMARY | ~2020-03-21 | XMS | Encounter Summary ---
Demographics + + + | Address | [address] | | | [place] [address] | + + + | Home Phone [...] | Author | [facility] | | | and Kamaljitana | + + + | Organization | [facility] | | | and [place] | + + + | Address | Unknown | + + + | Phone | Unavailable | + + + Support + + + + + | Name | Relationship | Address | Phone | + + + + + | India Tilley | [place] | [address] | | | | | [place], [place] | | | | | [address] | | + + + + + [...] Team Providers + +------+ + | Care Sub Master Name | Role | Phone | + +------+ + PCP | Unavailable | + +------+ + Reason for Visit +---------+--------+ + | Reason | Onset | Comments | | | Date | | +---------+--------+ + | Privacy Analyst | 12/12/ | | | | 2019 | | +---------+--------+ + Encounter Details +--------+ + + + + | Date | Type | Department | Care Team | Description | +--------+ + + + + | 12/12/ | Telephone | [facility] | Scott Koroma, | Privacy Analyst | | 2018 | | ORTHOPEDIC SURGERY | MD [address] | | | | | [address] [place] | [place] | | | | | [place] | [address] | | | | | [address] | | | | | | [phone] | | | +--------+ + + + [...] Zofran 4mg ODT tablets was phoned into [facility] at [phone]. The patient was notified this was sent [...] 11:43 AM PDTPa tient was seen at: [facility] 12/04/2018 Body Part Injured: closed right hip fracture surgical Injury occurred on:12/04/2018 How did injury occur: fell down at home Is this a work Injury: no Imaging:yes Splint/Sling/boot: Have you even been seen by our providers: doesn't think so Caller name and phone number: [phone] pateint states having a lot of issues with pain medication. Making her vomit. Please advi se and call. documented in this encou nter Plan of Treatment Not on filedocumented as of this encounter Visit Diagnoses Not on filedocumented in this encounter"
--- OUTSIDE RECORDS SUMMARY | ~2020-03-21 | XMS | Encounter Summary ---
Demographics + + + | Address | [address] | | | [place] [address] | + + + | Home Phone [...] | Author | [facility] | | | and Kamaljitana | + + + | Organization | [facility] | | | and [place] | + + + | Address | Unknown | + + + | Phone | Unavailable | + + + Support + + + + + | Name | Relationship | Address | Phone | + + + + + | India Tilley | [place] | [address] | | | | | [place], [place] | | | | | [address] | | + + + + + [...] Team Providers + +------+ + | Care Motor Overhauler Name | Role | Phone | + [...] Closed | | Nephrology | Diagnoses | Dangelo, | Stroemel, | | | | | ESRD (end | Renato | Gopi Roman, DO | | | | | stage renal | Momo FURNITURE ASSEMBLER | [address] | | | | | disease) | [address] | [address] | | | | | (HCC) | WAY | [address] | | | | | Procedures | [place], | [place], | | | | | [place] OFFICE | [place] [address] | [place] [address] | | | | | OUTPATIENT | Phone: | Phone: | | | | | VISIT 25 | [phone] | [phone] | | | | | MINUTES | Fax: | Fax: | | | | | | [phone] | [phone] | +--------+--------+ + + + + Encounter Details +--------+ + + + + | Date | Type | Department | Care Team | Description | +--------+ + + + + | 11/06/ | Off-Site | [facility] [place] | Gopi Muñoz | ESRD (end stage | | 2020 | Visit | NEPHROLOGY [address] | Jessie, DO [address] | renal disease) on | | | | [address] | [address] [place] | dialysis ([facility]) | | | | [place] | [place] [address] | (Primary Dx) | | | | [address] | [phone] | | | | | [phone] | | | +--------+ + + + [...] encounter Progress Notes Gopi Muñoz DO - 11/06/2019 10:45 AM PST[Patient No-Show today.]Electronically sig javi by Gopi Muñoz DO at 11/19/2019 1:05 PM PDTdocumented in this encounter Plan [...]
--- OUTSIDE RECORDS SUMMARY | ~2020-03-21 | XMS | Encounter Summary ---
Demographics + + + | Address | [address] | | | [place] [address] | + + + | Home Phone [...] + | Author | [facility] | | | and Kamaljitana | + + + | Organization | [facility] | | | and [place] | + + + | Address | Unknown | + + + | Phone | Unavailable | + + + Support + + + + + | Name | Relationship | Address | Phone | + + + + + | India Tilley | [place] | [address] | | | | | [place], [place] | | | | | [address] | | + + + + + [...] Providers + +------+ + | Care Rn Orthopedic Name | Role | Phone | + +------+ + PCP | Unavailable | + +------+ + Encounter Details +--------+ + + + + | Date | Type | Department | Care Team | Description | +--------+ + + + + | 09/23/ | Hospital | [facility] | | | | 2006 - | Encounter | [facility] | | | | | | [place] | | | | 10/13/ | | [place] | | | | 2006 | | [address] | | | | | | [phone] | | | +--------+ + + + [...]
--- OUTSIDE RECORDS SUMMARY | ~2020-03-21 | XMS | Encounter Summary ---
Demographics + + + | Address | [address] | | | [place] [address] | + + + | Home Phone [...] Author | [facility] | | | and Kamaljitana | + + + | Organization | [facility] | | | and [place] | + + + | Address | Unknown | + + + | Phone | Unavailable | + + + Support + + + + + | Name | Relationship | Address | Phone | + + + + + | India Tilley | [place] | [address] | | | | | [place], [place] | | | | | [address] | | + + + + + [...] Team Providers + +------+ + | Care Anesthesiology Physician Name | Role | Phone | [...] [address] [place] | | | | | [place], [place] | [place] [address] | | | | | [address] | [phone] | | | | | [phone] | | | +--------+ + + + [...] 06/05/2019 4:[address] Muñoz: Leave [facility]. Please schedule a CT guided BX of the T11-or T12 vertebrae, at [facility]. or Neurosurgery, [facility], whichever they prefer? Her local ID construction safety consultant said no further AB's until we did this. Patient was suppose to follow up with [facility] ID Dr. Jung on 05/25/19 to discuss further tr eatment/biopsy but was unable to attend d/t IP status at [facility]. Follow up appointment made f or patient [...]
--- OUTSIDE RECORDS SUMMARY | ~2020-03-21 | XMS | Encounter Summary ---
Demographics + + + | Address | [address] | | | [place] [address] | + + + | Home Phone [...] + | Author | [facility] | | | and Kamaljitana | + + + | Organization | [facility] | | | and [place] | + + + | Address | Unknown | + + + | Phone | Unavailable | + + + Support + + + + + | Name | Relationship | Address | Phone | + + + + + | India Tilley | [place] | [address] | | | | | [place], [place] | | | | | [address] | | + + + + + [...] Providers + +------+ + | Care Manager Cardiovascular Name | Role | Phone | + [...] + + | 02/03/ | Office | [facility] | Scott Koroma, | Postop check | | 2019 | Visit | ORTHOPEDIC SURGERY | [address] | (Primary Dx) | | | | [address] | [place] | | | | | [place] | [address] | | | | | [address] | | | | | | [phone] | | | +--------+---------+ + + + [...]
--- OUTSIDE RECORDS SUMMARY | ~2020-03-21 | XMS | Encounter Summary ---
Demographics + + + | Address | [address] | | | [place] [address] | + + + | Home Phone [...] | Author | [facility] | | | and Kamaljitana | + + + | Organization | [facility] | | | and [place] | + + + | Address | Unknown | + + + | Phone | Unavailable | + + + Support + + + + + | Name | Relationship | Address | Phone | + + + + + | India Tilley | [place] | [address] | | | | | [place], [place] | | | | | [address] | | + + + + + [...] Providers + +------+ + | Care Tile Mechanic Name | Role | Phone | [...] | | | | | renal | [place] [address] | [address] | | | | | disease | | [address] | | | | | (HCC) | [address] | [address] | | | | | Procedures | WAY | [place], | | | | | [place] OFFICE | [place], | [place] [address] | | | | | OUTPATIENT | [place] [address] | Phone: | | | | | VISIT 25 | Phone: | [phone] | | | | | MINUTES | [phone] | Fax: | | | | | | Fax: | [phone] | | | | | | [phone] | | +--------+--------+ + + + + Encounter Details +--------+ + + + + | Date | Type | Department | Care Team | Description | +--------+ + + + + | 04/25/ | Off-Site | [facility] [place] | Gopi Muñoz | End stage renal | | 2018 | Visit | NEPHROLOGY [address] | M, DO [address] | disease (HCC) | | | | [address] | [address] [place] | (Primary Dx) | | | | [place], [place] | [place] [address] | | | | | [address] | [phone] | | | | | [phone] | | | +--------+ + + + [...] this encounter Progress Notes Gopi Muñoz, - 04/25/2018 11:45 AM PDT Subjective: DIALYSIS NOTE Patient ID: Estefani Tilley is a 73 y.o. female. 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 She also has depression, long standing HTN, Type 2 DM, requiring insulin, and CKD/MBD. She has had successful construction of an AVF in her Right arm on 01/04/2018 . She has mult iple complaints including lack of family support, lack of housing, lack of disposable income . I asked her if she has been directly in touch with the [facility] at the [facility], and she states that "she has not. " She will not provide a direct answer why she does not confer directly with [facility] for better resources? She de nies [...] candidate to get in touch with a alatna telesales representative at the [facility] for some immediate madiha rupertce. 2. I told her that it's very [...] here in the [facility] : [place]. Santos Stephenson MD, [facility] documented in thi s encounter Plan of Treatment Not on filedocumented as of this encounter Visit Diagnoses + + | Diagnosis | + + | End stage renal disease (HCC) - Primary End stage renal disease | + + documented in this encounter
--- OUTSIDE RECORDS SUMMARY | ~2020-03-21 | XMS | Encounter Summary ---
Demographics + + + | Address | [address] | | | [place] [address] | + + + | Home Phone [...] + | Author | [facility] | | | and Kamaljitana | + + + | Organization | [facility] | | | and [place] | + + + | Address | Unknown | + + + | Phone | Unavailable | + + + Support + + + + + | Name | Relationship | Address | Phone | + + + + + | India Tilley | ECON | [address] | | | | | [place], [place] | | | | | [address] | | + + + + + [...] Team Providers + +------+ + | Care Mutuel Teller Name | Role | Phone | + +------+ + PCP | Unavailable | + +------+ + Encounter Details +--------+ + + + + | Date | Type | Department | Care Team | Description | +--------+ + + + + | 09/09/ | Hospital | [facility] | | | | 2005 - | Encounter | MED CTR CANCER | | | | | | [place] | | | | 09/12/ | | [place] | | | | 2005 | | [address] | | | | | | [phone] | | | +--------+ + + + [...]
--- OUTSIDE RECORDS SUMMARY | ~2020-03-21 | XMS | Encounter Summary ---
Demographics + + + | Address | [address] | | | [place] [address] | + + + | Home Phone [...] + + | Author | [facility] | | | and Kamaljitana | + + + | Organization | [facility] | | | and [place] | + + + | Address | Unknown | + + + | Phone | Unavailable | + + + Support + + + + + | Name | Relationship | Address | Phone | + + + + + | India Tilley | ECON | [address] | | | | | [place], [place] | | | | | [address] | | + + + + + [...] Team Providers + +------+ + | Care Vegetable Loader Machine Operator Name | Role | Phone [...] + + | 08/17/ | Telephone | [facility] | Danae Gilkatharina Menard, | Procedure (no show) | | 2019 | | VASCULAR SURGERY | RN | | | | | [address] | | | | | | [place] | | | | | | [address] | | | | | | [phone] | | | +--------+ + + + [...] a gas card. Called and inform nurse operations research group manager Pb at [facility]. He stated understanding and w ill pass the information to his team. Electronically signed by Louise Fink RN at 08/17 1:28 PM PSTdocumented in this encounter Plan of Treatment Not on filedocumented as of this encounter Visit Diagnoses Not on filedocumented in this encounter
--- OUTSIDE RECORDS SUMMARY | ~2020-03-21 | XMS | Encounter Summary ---
Demographics + + + | Address | [address] | | | [place] [address] | + + + | Home Phone [...] | Author | [facility] | | | and Kamaljitana | + + + | Organization | [facility] | | | and [place] | + + + | Address | Unknown | + + + | Phone | Unavailable | + + + Support + + + + + | Name | Relationship | Address | Phone | + + + + + | India Tilley | ECON | [address] | | | | | [place], [place] | | | | | [address] | | + + + + + [...] Team Providers + +------+ + | Care Calciner Operator Helper Name | Role | Phone [...] + + | 01/03/ | Telephone | [facility] | Santos Stephenson | Surgery Appointment | | 2018 | | SURGERY [address] | MD Kinga, FACS [address] | | | | | [place], [place] | [address] [facility] | | | | | [address] | [place] [address] | | | | | [phone] | [phone] | | | | | | | [...] a phone call back if possible at [phone] signed by Gina allen at 01/03/2018 3:48 PM PDTTelephone Encounter - Awa Hart, RN - 01/03/2018 3:00 PM P DTCalled to inform patient of new check in time for surgery at 8:00am with surgery at 10:00a m. She verbalized understanding but stated this may be difficult due to her ride and coming from [place]. Asked her to please call with ride and check if they can be there at this ti me and let us know. docu mented in this encounter Plan of Treatment Not on filedocumented as of this encounter Visit Diagnoses Not on filedocumented in this encounter"
--- OUTSIDE RECORDS SUMMARY | ~2020-03-21 | XMS | Encounter Summary ---
Demographics + + + | Address | [address] | | | [place] [address] | + + + | Home Phone [...] + | Author | [facility] | | | and [place]it[place] | + + + | Organization | [facility] | | | and [place] | + + + | Address | Unknown | + + + | Phone | Unavailable | + + + Support + + + + + | Name | Relationship | Address | Phone | + + + + + | India Tilley | ECON | [address] | | | | | [place], [place] | | | | | [address] | | + + + + + [...] Team Providers + +------+ + | Care Tank Terminal Gauger Name | Role | Phone | + +------+ + PCP | Unavailable | + +------+ + Reason for Visit +--------+ + | Reason | Comments | +--------+ + | Other | Admission Records 06/20/2019-06/22/2019- [facility] . | +--------+ + Encounter Details +--------+ + + + + | Date | Type | Department | Care Team | Description | +--------+ + + + + | 06/27/ | Documentati | [facility] | Tabatha Patel, | Other (Admission | | 2019 | on | INFECTIOUS DISEASE | Director Imaging | Records | | | | [address] [facility] | | 06/20/2019- | | | | [place], [place] | | [facility]- [facility] | | | | [address] | | [facility] . ) | | | | [phone] | | | +--------+ + + + [...] of this encounter Progress Notes Tabatha Patel Director Imaging - 06/27/2019 10:44 AM PDTReceived records from [facility]. For patient admission from 06/20/2019-06/22/2019. Records were sent to scan. Yoko CMA. dosabiha villanueva in this encounter Plan of Treatment Not on filedocumented as of this encounter Visit Diagnoses Not on filedocumented in this encounter"
--- OUTSIDE RECORDS SUMMARY | ~2020-03-21 | XMS | Encounter Summary ---
Demographics + + + | Address | [address] | | | [place] [address] | + + + | Home Phone [...] Author | [facility] | | | and Kamaljitana | + + + | Organization | [facility] | | | and [place] | + + + | Address | Unknown | + + + | Phone | Unavailable | + + + Support + + + + + | Name | Relationship | Address | Phone | + + + + + | India Tilley | ECON | [address] | | | | | [place], [place] | | | | | [address] | | + + + + + [...] Team Providers + +------+ + | Care Hogshead Filler Name | Role | Phone | [...] | | [place] | [place] [address] | | | | | [address] | [phone] | | | | | [phone] | | | +--------+ + + + [...] 1.012 | | EXTERNAL | | | [place], | | | LAB | | | [...]
--- OUTSIDE RECORDS SUMMARY | ~2020-03-21 | XMS | Encounter Summary ---
Demographics + + + | Address | [address] | | | [place] [address] | + + + | Home Phone [...] | Author | [facility] | | | and Kamaljitana | + + + | Organization | [facility] | | | and [place] | + + + | Address | Unknown | + + + | Phone | Unavailable | + + + Support + + + + + | Name | Relationship | Address | Phone | + + + + + | India Tilley | ECON | [address] | | | | | [place], [place] | | | | | [address] | | + + + + + [...] Team Providers + +------+ + | Care Treasury Specialist Name | Role | Phone | [...] [place], | | | | | [place] ESRD | [facility], | [place] [address] | | | | | RELATED [place] | [place] | Phone: | | | | | MONTHLY | [address] | [phone] | | | | | 20&/> YR OLD | Phone: | Fax: | | | | | 4/> VISITS | [phone] | [phone] | | | | | | Fax: | | | | | | | [phone] | | +--------+--------+ + + + + [...] | | [place] | [place] [address] | | | | | [address] | [phone] | | | | | [phone] | | | +--------+ + + + [...]
--- OUTSIDE RECORDS SUMMARY | ~2020-03-21 | XMS | Encounter Summary ---
Demographics + + + | Address | [address] | | | [place] [address] | + + + | Home Phone | | + + + | Preferred Language | Unknown | + + + | Marital Status | Single | + + + | Uatsdin Affiliation | Unknown | + + + | Race | Unknown | + + + | Ethnic Group | Unknown | + + + Author + + + | Author | [facility] | | | and Kamaljitana | + + + | Organization | [facility] | | | and [place] | + + + | Address | Unknown | + + + | Phone | Unavailable | + + + Support + + + + + | Name | Relationship | Address | Phone | + + + + + | India Tilley | ECON | [address] | | | | | [place], [place] | | | | | [address] | | + + + + + [...] Providers + +------+ + | Care Glass Furnace Tender Name | Role | Phone | + +------+ + PCP | Unavailable | + +------+ + Encounter Details +--------+ + + + + | Date | Type | Department | Care Team | Description | +--------+ + + + + | 01/15/ | Hospital | [facility] | | | | 2006 - | Encounter | [facility] CAN[facility] | | | | | | [address] [place] | | | | 02/10/ | | [place] | | | | 2006 | | [address] | | | | | | [phone] | | | +--------+ + + + [...]
--- OUTSIDE RECORDS SUMMARY | ~2020-03-21 | XMS | Encounter Summary ---
Demographics + + + | Address | [address] | | | [place] [address] | + + + | Home Phone [...] Author | [facility] | | | and Kamaljitana | + + + | Organization | [facility] | | | and [place] | + + + | Address | Unknown | + + + | Phone | Unavailable | + + + Support + + + + + | Name | Relationship | Address | Phone | + + + + + | India Campos | ECON | [address] | | | | | [place], [place] | | | | | [address] | | + + + + + [...] Providers + +------+ + | Care Automotive Power Electronics Engineer Name | Role | Phone | [...] + + | 10/30/ | Emergency | [facility] | Yaw Laguna MD | Pleural effusion | | 2019 - | | MED CTR EMERGENCY | [address] | (Primary Dx); | | | | CENTER [address] | [place] | Congestive heart | | 10/31/ | | [place] | [address] | failure, unspecified | | 2020 | | [address] | | HF chronicity, | | | | [phone] | Nick Mendoza MD | unspecified heart | | | | | [address] | failure type (HCC); | | | | | [place] | Elevated troponin | | | | | [address] | | | | | | | [...] might be different fr om the original. [place] HOSPITALIST HISTORY & PHYSICAL Patient: Estefani Campos : 1945: Age: 74 y.o. MedRec: [id number] Admission date: 10/30/2019 Hospital day # : 0 Physician author: Olegario Peng MD Today: 10/30/2019 CHIEF COMPLAINT: Shortness of breath, cough HISTORY OF PRESENT ILLNESS: This is a 74 y.o. female with a history of end-stage renal disease (MWF) secondary to diabe tic glomerular sclerosis, kuy-mjzafka-lmuidruxo diabetes type 2, hypertension, anemia, hypot hyroidism [...] (HCC) Diabetes (HCC) Heart disease Hemodialysis patient ([facility]) mon-wed-wed History of blood clots Hypercholesteremia Hypertension Hypothyroidism Renal failure Seasonal allergies Stroke (cerebrum) ([facility]) Past Surgical History: Procedure Laterality Date APPENDECTOMY EYE SURGERY 2009 HIP SURGERY Right 12/04/2018 Procedure: ORIF HIP W/CANNULATED SCREWS; Surgeon: Scott Koroma MD; Location: [facility] MAIN OR HYSTERECTOMY MASTECTOMY 2006 left ear NOSE SURGERY 2008 OTHER SURGICAL HISTORY Right 03/28/2019 Procedure: TUNNEL PICC LINE PLACEMENT-6fr 22cm BARD Power Line; Surgeon: Jose Jiménez MD; Location: [facility] INTERVENTIONAL RADIOLOGY REMOVAL TUNNELED CATHETER Right 04/04/[address] Stephenson SHUNT PLACEMENT/INSERTION N/A 11/08/2017 Procedure: Tunneled Hemodialysis Catheter Placement; Surgeon: Nora Leo MD; Location : [facility] MAIN OR SHUNT PLACEMENT/INSERTION Right 02/04/2018 Procedure: INSERTION SHUNT HEMODIALYSIS W/ PERMACATH; Surgeon: Heather Navarro MD; L ocation: [facility] MAIN OR VEIN SURGERY Right 01/04/2018 Procedure: Right Transposed Basilic Vein to Proximal Radial Artery; Surgeon: Santos Stephenson MD, FACS; Location: [facility] MAIN OR FAMILY HISTORY: family history includes [...] Date/Time Influenza A and B RNA, NAAT [[id number]] (Abnormal) Collected: 10/30/19 1302 Order Status: Completed [...] facility will need to transfer. Type II DC Patient reported atypical symptoms of chest pain. [...] greatly appreciate recommendations, plan for HD tomorrow Ged-zibxawd-mxfpfeojr diabetes type 2 Appears diet controlled, last [...] by: Olegario Peng MD 10/30/2019 2:37 PM [facility] documented in this e ncounter ED Notes [...] vancomycin. Patient will be transfe rred to [facility]. [facility] did not have any beds. PENDING: [...] not drink alcohol or use drugs. 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 Final Impression: Dyspnea with pleural [...] R?MRN: | | | | | | [id number] | | | [id number] | | | riteri | | | [...] 2020 | | | | | | Jones | | | ED | | | Dispar | | | ity | | | Measur | | | e - | | | Jones | | | has | | | [...] | | | s. | | | Jones | | | | | | Health [...] | | | By: | | | Jones | | | | | | Health [...] | | | [facility] | | | [place] | | | 1 0 | | | [facility] | | | [facility] | | | [place] | | | y | | | [...] | | | St. | | | [place] | | | y H. | | [...] | | e of | | | [facility] | | | | | | [facility] [...] | | | St. | | | [place] | | | y H. | | [...] | | | St. | | | [place] | | | y H. | | [...] | | e of | | | [facility] [place] | | | | | | [place] | | | ry | | | artery | | | w/o | | | ang | | | pctrs | | | Oct | | | 8, | | | 2019 | | | [facility] | | | [facility] | | | [place] | | | [place] | | | ID | | | [...] | | | St. | | | [place] | | | y H. | | [...] | | | St. | | | [place] | | | y H. | | [...] | | | St. | | | [place] | | | y H. | | [...] | | | St. | | | [place] | | | y H. | | [...] | | | Center | | | [place] | | | [place] | | | [...] | | | ne | | | Ryees | | | 21, | | | 2019 - | | | | | | Curren | | | t | | | THURMA | | | N, | | | COLLEE | | | N, | | | SENIOR PROJECT MANAGER-C | | | Nurse | | [...] | | | [facility] | | | [place] | | | | | | HEALTH [...] | | | otify/ | | | [id number] | | | [phone] | | | [phone] | | | -[phone] | | | [id number] | | | [id number] | | | | | | PLEASE [...] MD | | | | | | ([id number]) on 10/31/2019 | | | | | [...] | [facility] | [address] | [place] | [phone] | | [facility] | | [address] | | | - LABORATORY | | [...] [address] | [place] | [phone] | | [facility] | | [address] | | | - LABORATORY | | [...] + | [facility] | [address] | [place] | [phone] | | [facility] | | [address] | | | - LABORATORY | | [...] ST. | [address] | [place], [place] | [phone] | | [facility] | | [address] | | | - LABORATORY | | [...] [address] | [place] | [phone] | | [facility] | | [address] | | | - LABORATORY | | [...] range | JIMJOSE AE | | | [facility] | | | [facility] | | | - LABORATORY | + + + + + + + + | Performing | Address | City/State/Zipcode | Phone Number | | Organization | | | | + + + + + | [facility] | [address] | [place], [place] | [phone] | | [facility] | | [address] | | | [address] | [place] | [phone] | | [facility] | | [address] | | | - LABORATORY | | [...] + | [facility] | [address] | [place] | [phone] | | [facility] | | [address] | | | - LABORATORY | | [...] [address] | [place] | [phone] | | [facility] | | [address] | | | - LABORATORY | | [...] [address] | [place] | [phone] | | [facility] | | [address] | | | - LABORATORY | | [...] ST. | [address] | [place], [place] | [phone] | | [facility] | | [address] | | | - LABORATORY | | [...] to accommodate the 8 | | | Mongolian thoracentesis trocar and catheter, which were advanced [...] + | Performing | Address | City/State/[facility] | Phone Number | [...] ST. | [address] | [place], [place] | [phone] | | [facility] | | [address] | | | - LABORATORY | | [address] | [place] | [phone] | | [facility] | | [address] | | | - LABORATORY | | [...] in use as of October | | [facility] | | | | 2018. Check | [...] ST. | [address] | [place] | [phone] | | [facility] | | [address] | | | - LABORATORY | | [...] + | [facility] | [address] | [place] | [phone] | | [facility] | | [address] | | | - LABORATORY | | [...] + | [facility] | [address] | [place] | [phone] | | [facility] | | [address] | | | - LABORATORY | | [...] | mL/min/1.73m2 | REINA | | | TRINIDADIAN | RATE,ESTIMATED | | MEDICAL | | | | mL/min/1.07o1Agtt than | | CENTER - | | [address] | [place] | [phone] | | [facility] | | [address] | | | - LABORATORY | | [...] | | Cells | | M/uL | [facility] | | | | | | MEDICAL [...] | [facility] | [address] | [place], [place] | [phone] | | [facility] | | [address] | | | - LABORATORY | | [...] PHYSICIAN: Olegario Peng MD PATIENT NAME: | [place] [facility] | | ESTEFANI CAMPOS GENDER: F [...] preparation was | | | performed by [employer] [id number] [facility] | | | [place] [address] and [facility] [address] | | | [place] [address]. Professional interpretation was performed | | | by [employer] - [facility] - [address] | | | [place] [address] (Brand Mgr: Alen Simpson, | | | .; IA#:[id number]).8 Diagnostician: Precious RIGGS | | | ([facility]) Memorial Adviser Diagnostician: Alen Simpson MD | | | [...]
--- OUTSIDE RECORDS SUMMARY | ~2020-03-21 | XMS | Encounter Summary ---
Demographics + + + | Address | [address] | | | [place] [address] | + + + | Home Phone [...] Author | [facility] | | | and Kamaljitana | + + + | Organization | [facility] | | | and [place] | + + + | Address | Unknown | + + + | Phone | Unavailable | + + + Support + + + + + | Name | Relationship | Address | Phone | + + + + + | India Tilley | ECON | [address] | | | | | [place], [place] | | | | | [address] | | + + + + + [...] Providers + +------+ + | Care Operations Research Manager Name | Role | Phone | [...] | | | | renal | [place] [address] | [address] | | | | | disease | | [address] | | | | | (HCC) | CONF[place]ATED | [address] | | | | | Procedures | WAY | [place], | | | | | [place] OFFICE | [place], | [place] [address] | | | | | OUTPATIENT | [place] [address] | Phone: | | | | | VISIT 25 | Phone: | [phone] | | | | | MINUTES [place] | [phone] | Fax: | | | | | ESRD RELATED | Fax: | [phone] | | | | | SVC MONTHLY | [phone] | | | | | | 20&/> YR | | | | | | | OLD 4/> | | | | | | | VISITS | | | +--------+--------+ + + + + Encounter Details +--------+ + + + + | Date | Type | Department | Care Team | Description | +--------+ + + + + | 07/11/ | Off-Site | [facility] | Gopi Muñoz | End stage renal | | 2018 | Visit | NEPHROLOGY [address] | M, DO [address] | disease (HCC) | | | | [address] | [address] [place] | (Primary Dx) | | | | [place] | [place] [address] | | | | | [address] | [phone] | | | | | [phone] | | | +--------+ + + + [...]
--- OUTSIDE RECORDS SUMMARY | ~2020-03-21 | XMS | Encounter Summary ---
Demographics + + + | Address | [address] | | | [place] [address] | + + + | Home Phone [...] Author | [facility] | | | and Kamaljitana | + + + | Organization | [facility] | | | and [place] | + + + | Address | Unknown | + + + | Phone | Unavailable | + + + Support + + + + + | Name | Relationship | Address | Phone | + + + + + | India Tilley | ECON | [address] | | | | | [place], [place] | | | | | [address] | | + + + + + [...] Team Providers + +------+ + | Care Maintenance Tech Name | Role | Phone | [...] + | 02/04/ | Surgery | [facility] | Heather Navarro | INSERTION SHUNT | | 2018 - | | MED CTR OR INTRA OP | [address] | HEMODIALYSIS W/ | | | | [address] | [place] | PERMACATH | | 02/05/ | | [place] | [place] [address] | | | 2017 | | [address] | [phone] | | | | | [phone] | | | +--------+---------+ + + + [...] + + + | Blood Pressure | 189/61 | 02/05/2018 12:15 AM | | | | | PDT | | + + + + + | Pulse | 73 | 02/05/2018 12:15 AM | | | | | PDT | | + + + + + | Temperature | 36 C (96.8 F) | 02/04/2018 11:11 PM | | | | | PDT | | + + + + + | Respiratory Rate | 8 | 02/05/2018 12:15 AM | | | | | PDT | | + + + + + | Oxygen Saturation | 92% | 02/05/2018 12:15 AM | | | | | PDT [...] Office Phone Number to Contact Dr Navarro: [phone] Navarro's Office to schedule a follow up visit as needed - you will follow up with Dr Stephenson and at the dialysis center. Our office is located in the [facility] next door to Urgent Care. [...] Wednesday 9:00-2:00PM. Call the General Surgery Office [phone] for the following: Persistent vomiting Diarrhea lasting [...] as possible. Limit sports and strenuous activities [id number]. Shower as usual. Gently wash around your [...] Navarro MD - 02/04/2018 7:51 PM PDT [facility] ADMIT HISTORY AND PHYSICAL Primary Care Physician: [...] catheter was dislodged yesterday. She was in [place] and then came here from [facility] in [place]. She recently had an AV fistula placed, [...] Placement; Surgeon: Nora Leo MD; Location : [facility] MAIN OR VEIN SURGERY Right 01/04/2018 Procedure: Right Transposed Basilic Vein to Proximal Radial Artery; Surgeon: Santos Stephenson MD, FACS; Location: [facility] MAIN OR MEDICATIONS Prior to Admission [...] by: Heather Navarro MD, 02/04/2018 19:51 [facility] documented in thi s encounter ED Notes Venkatesh Bejarano MD - 02/04/2018 9:31 PM PDTFormatting of this note might be differe nt from the original. [facility] Estefani Tilley Emergency Department Encounter Note [address] [place] [address] PCP:Francisca Womack PA-C [phone] DIAGNOSIS: 1. Complications, dialysis, catheter, mechanical, initial encounter (HCC) 2. End stage renal disease (HCC) CHIEF COMPLAINT: Chief Complaint Patient presents with Medical Problem (Minor) Mode of Arrival: walk-in ED Room: 3 HPI Estefani Tilley is a 72 y.o. female who presents to the Emergency Department for evaluation . This patient was in [place] and apparently her tunneled dialysis catheter snagged [...] Overview: mastectomy L Oct 19 with chemo [facility] IMO Problem List [...] Placement; Surgeon: Nora Leo MD; Location : [facility] MAIN OR VEIN SURGERY Right 01/04/2018 Procedure: Right Transposed Basilic Vein to Proximal Radial Artery; Surgeon: Santos Stephenson MD, FACS; Location: [facility] MAIN OR CURRENT MEDICATIONS Previous Medications [...] Complications, dialysis, catheter, mechanical, initial encounter (HCC) T82.49XA 996.1 2. End stage renal disease (HCC) N18.6 585.6 Portions of this chart were created with [employer] voice recognition software. Inadvertent so und alike substitutions may be present and are unintentional Venkatesh Bejarano MD 02/04/18 2133 Keren Choi RN - 02/04/2018 9:19 PM [...] feels that she is a burden. LISA Beltránphysical therapy assistant aware of situation and takes pt to [facility]. Boris Choi RN - 02/04/2018 6:15 PM PDTPt arrives after her dialysis catheter fell out yesterday. Pt states that she was due to have dialysis today. documented in this encounter Miscellaneous Notes Op Note - Heather Navarro MD - 02/04/2018 11:12 PM PDT [facility] OPERATIVE REPORT PATIENT NAME: Estefani Tilley AGE: [...] signed by: Heather Navarro MD, 02/04/2018 23:12 [facility] rief Op Note - Heather Ramos MD - 02/04/2018 11:11 PM PDTFormatting of this note might be different f rom the original. Brief Operative Note Esetfani Tilley 72 y.o. female 1945 [id number] Proc. Date 02/04/2018 - 02/05/2018 Preop Dx Needs dialysis catheter Postop Dx same Procedure INSERTION SHUNT HEMODIALYSIS W/ PERMACATH - removal right chest lesion/scar Anesthesia Dr Mckeon Surgeon Heather Navarro MD - Primary Lode Miner Blasting none EBL 10 mL Findings Findings consistent with scheduled procedure. No other abnormalities found. Right IJ. Ultrasound used to cannulate the right IJ. X-ray used to follow the guidewire t o the SVC. Catheters flushed with 1.7 mL each heparinized saline. Complications none Specimens * No specimens in log * Drains none Electronically signed by: Heather Navarro MD 02/04/2018 23:11 [facility] documented in this encounter Plan of Treatment [...] + + | Performing | Address | City/State/[facility] | Phone Number | | [...] ST. | [address] | [place], [place] | [phone] | | [facility] | | [address] | | | - LABORATORY | | [...] ST. | [address] | [place] | [phone] | | [facility] | | [address] | | | - LABORATORY | | [...] 3.57 (H) | 0.60 - 1.30 | [facility] [place] | | | | | mg/dL | [facility] | | | | | | MEDICAL | | | | | | CENTER - | | | | | | LABORATORY | | + + + + + + | eGFR if not | 13 (L)Comment: | >=60 | [facility] [place] | | | | GLOMERULAR FILTRATION | mL/min/1.73m2 | [facility] | | | [place] | RATE,ESTIMATED | | MEDICAL | | | | mL/min/1.75n7Ghdu than | | CENTER - | | [...] + | [facility] | [address] | [place] | [phone] | | [facility] | | [address] | | | - LABORATORY | | [...] [address] | [place] | [phone] | | [facility] | | [address] | | | - LABORATORY | | [...] 0.25 mg | | | | | 11:42 | | | | | | [...] agent. | | | Ondansetron IV is computer technology instructor | | | out. If patient cannot [...]
--- OUTSIDE RECORDS SUMMARY | ~2020-03-21 | XMS | Encounter Summary ---
Demographics + + + | Address | [address] | | | [place] [address] | + + + | Home Phone [...] Author | [facility] | | | and Kamaljitana | + + + | Organization | [facility] | | | and [place] | + + + | Address | Unknown | + + + | Phone | Unavailable | + + + Support + + + + + | Name | Relationship | Address | Phone | + + + + + | India Tilley | ECON | [address] | | | | | [place], [place] | | | | | [address] | | + + + + + [...] Team Providers + +------+ + | Care Allopathic Doctor Name | Role | Phone | + +------+ + PCP | Unavailable | + +------+ + Reason for Visit + +--------+ + | Reason | Onset | Comments | | | Date | | + +--------+ + | Vascular Access | 02/04/ | | | Problem | 2018 | | + +--------+ + Encounter Details +--------+ + + + + | Date | Type | Department | Care Team | Description | +--------+ + + + + | 02/04/ | Telephone | [facility] [place] | Gopi Muñoz | Vascular Access | | 2018 | | NEPHROLOGY [address] | M, DO [address] | Problem | | | | [address] | [address] [place] | | | | | [place], [place] | [place] [address] | | | | | [address] | [phone] | | | | | [phone] | | | +--------+ + + + [...] Telephone Encounter - Dori Romero RN - 02/04/2018 11:55 AM PDTSpoke with Davita dialys is RN. She reports that she has spoken with patient again and she was instructed to go to ER at [facility] as soon as she is back in town. She reports, per [facility], entire vania neled dialysis catheter was out. She reports that this information was given to Dr. Moseley as she is seeing dialysis patients at [facility] this month. elephone Encounter - Dori Romero RN - 02/04/2018 10:51 AM PDTUnable to contact patient, left message on her sister's phone to call our office.Elec tronically signed by Dori Romero RN at 02/04/2018 10:55 AM PDTTelephone Encounter - Dori Mojica RN - 02/04/2018 9:[address] Anne office this AM to report that her "dialysis catheter fell out." Dr. Stephenson is out of office, no other available provid ers today. Advised to call on-call surgeon to place a new tunneled hemodialysis catheter. Unable to reach patient by phone. Spoke with patients dialysis nurse who reports that patient called her yesterday to report that while out of town in [facility] her dialysis catheter either fell out or part of th e catheter fell off. She reports that patient is not clear on what exactly happened. She was instructed to go to the ER. Patient reports being seen at [facility] in [place], [place] where she was told that they did not have the correct "parts" to fix the catheter an d a tagederm was placed over it. She also reports that patient was planning to miss treatmen t today as well due to being out of town. Request for ER report sent to [facility]. Dr. Muñoz notified. Will continue to try and c ontact patient. docuallison villanueva in this encounter Plan of Treatment Not on filedocumented as of this encounter Visit Diagnoses Not on filedocumented in this encounter
--- OUTSIDE RECORDS SUMMARY | ~2020-03-21 | XMS | Encounter Summary ---
Demographics + + + | Address | [address] | | | [place] [address] | + + + | Home Phone [...] | Author | [facility] | | | and [place] | + + + | Organization | [facility] | | | and [place] | + + + | Address | Unknown | + + + | Phone | Unavailable | + + + Support + + + + + | Name | Relationship | Address | Phone | + + + + + | India Tilley | ECON | [address] | | | | | [place], [place] | | | | | [address] | | + + + + + [...] Team Providers + +------+ + | Care Executive Director Name | Role | Phone | [...] | [place] | [place] [address] | | | | | [place] [address] | | | | | | [phone] | | | +--------+ + + + [...] for comparison only - no result from [place]. | [facility] | + + + + +---------+ + + | Performing | Address | City/State/Zipcode | Phone Number | | Organization | | | | + +---------+ + + | [facility] | | | | + +---------+ + + documented in this encounter Visit Diagnoses Not on filedocumented in this encounter"
--- OUTSIDE RECORDS SUMMARY | ~2020-03-21 | XMS | Encounter Summary ---
Demographics + + + | Address | [address] | | | [place] [address] | + + + | Home Phone [...] | Author | [facility] | | | and [place] | + + + | Organization | [facility] | | | and [place] | + + + | Address | Unknown | + + + | Phone | Unavailable | + + + Support + + + + + | Name | Relationship | Address | Phone | + + + + + | India Tilley | ECON | [address] | | | | | [place], [place] | | | | | [address] | | + + + + + [...] Team Providers + +------+ + | Care Maker Up Folding Name | Role | Phone | + [...] [address] [place] | | | | | [place], [place] | [place] [address] | | | | | [address] | [phone] | | | | | [phone] | | | +--------+ + + + [...] nstructed to report to [facility] in [place] at her regularly scheduled time. She ignacio [...] , he has been on hospice in [facility] and she has been with him. She is now ready to come back to dialysis. Spoke with LISA River at [facility]. She reports that she has already talked [...] she will have to drive herself to [place] if she comes here. I notified her that she has the option to go to [facility] and then be transported if needed. [...]
--- OUTSIDE RECORDS SUMMARY | ~2020-03-21 | XMS | Encounter Summary ---
Demographics + + + | Address | [address] | | | [place] [address] | + + + | Home Phone [...] Author | [facility] | | | and [place] | + + + | Organization | [facility] | | | and [place] | + + + | Address | Unknown | + + + | Phone | Unavailable | + + + Support + + + + + | Name | Relationship | Address | Phone | + + + + + | India Tilley | ECON | [address] | | | | | [place], [place] | | | | | [address] | | + + + + + [...] Team Providers + +------+ + | Care Eyeglass Frames Polisher Name | Role | Phone | + +------+ + PCP | Unavailable | + +------+ + Encounter Details +--------+ + + + + | Date | Type | Department | Care Team | Description | +--------+ + + + + | 06/15/ | Telephone | [facility] | Ibis Arriola | | | 2019 | | [facility] | LISA Restrepo | | | | | [address] | | | | | | [place] | | | | | | [address] | | | | | | [phone] | | | +--------+ + + + [...] this encounter Miscellaneous Notes Telephone Encounter - Ibis Arriola RN - 06/15/2019 8:45 AM PDTRADIOLOGY BIOPSY RE FERRAL Diagnosis: Infection of intervertebral disc (pyogenic), thoracic region (HCC) [M46.34 (ICD- 10-CM)] Osteomyelitis of thoracic vertebra (HCC) [M46.24 (ICD-10-CM)] Biopsy Requested (be as specific as possible): Needs vertebral bone biopsy for suspected sp inal infection based on MRI T11-T12. Referring Physician: Dereck Miller Office contact: [phone] Patient Phone: [phone] Imaging: MR Lsp [id number] (05/23); Tsp [id number] (05/18) Patient Dx: As above, recent admit [facility] (discharge note in Epic). ESRD, DM, HTN Patient BMI: 28 Blood thinners: none Any Red Flags?: To be performed by: documented in th is encounter Plan of Treatment Not on filedocumented as of this encounter Visit Diagnoses Not on filedocumented in this encounter"
--- OUTSIDE RECORDS SUMMARY | ~2020-03-21 | XMS | Encounter Summary ---
Demographics + + + | Address | [address] | | | [place] [address] | + + + | Home Phone [...] + | Author | [facility] | | | and [place] | + + + | Organization | [facility] | | | and [place] | + + + | Address | Unknown | + + + | Phone | Unavailable | + + + Support + + + + + | Name | Relationship | Address | Phone | + + + + + | India Tilley | ECON | [address] | | | | | [place], [place] | | | | | [address] | | + + + + + [...] Providers + +------+ + | Care Furniture Arranger Name | Role | Phone | + +------+ + PCP | Unavailable | + +------+ + Encounter Details +--------+ + + + + | Date | Type | Department | Care Team | Description | +--------+ + + + + | 02/01/ | Orders Only | [facility] | Scott Koroma, | Closed fracture of | | 2019 | | ORTHOPEDIC SURGERY | [address] | neck of right femur, | | | | [address] [place] | [place] | initial encounter | | | | [place] | [address] | (HCC) (Primary Dx); | | | | [address] | | Right hip pain; H/O | | | | [phone] | | major orthopedic | | | [...] + | Julian, Anjum Results In - 02/03/2019 3:37 PM PDT [...]
--- OUTSIDE RECORDS SUMMARY | ~2020-03-21 | XMS | Encounter Summary ---
Demographics + + + | Address | [address] | | | [place] [address] | + + + | Home Phone [...] | Author | [facility] | | | and [place] | + + + | Organization | [facility] | | | and [place] | + + + | Address | Unknown | + + + | Phone | Unavailable | + + + Support + + + + + | Name | Relationship | Address | Phone | + + + + + | India Tilley | ECON | [address] | | | | | [place], [place] | | | | | [address] | | + + + + + [...] Team Providers + +------+ + | Care Space Studies Faculty Member Name | Role | Phone | + +------+ + PCP | Unavailable | + +------+ + Encounter Details +--------+ + + + + | Date | Type | Department | Care Team | Description | +--------+ + + + + | 10/21/ | Abstract | [facility] | Santos Stephenson | | | 2018 | | SURGERY [address] | MD Kinga, FACS [address] | | | | | [place] | [address] [facility] | | | | | [address] | [place] [address] | | | | | [phone] | [phone] | | | | | | | [...]
--- OUTSIDE RECORDS SUMMARY | ~2020-03-21 | XMS | Encounter Summary ---
Demographics + + + | Address | [address] | | | [place] [address] | + + + | Home Phone [...] Author | [facility] | | | and [place] | + + + | Organization | [facility] | | | and [place] | + + + | Address | Unknown | + + + | Phone | Unavailable | + + + Support + + + + + | Name | Relationship | Address | Phone | + + + + + | India Tilley | ECON | [address] | | | | | [place], [place] | | | | | [address] | | + + + + + [...] Team Providers + +------+ + | Care Degreasing Solution Reclaimer Name | Role | Phone | + +------+ + | Renato Pierson | PCP | | + +------+ + Encounter Details +--------+ + + + + | Date | Type | Department | Care Team | Description | +--------+ + + + + | 04/28/ | Orders Only | [facility] | Gopi Muñoz | | | 2019 | | NEPHROLOGY [address] | M, DO [address] | | | | | [address] | [address] [place] | | | | | [place], [place] | [place] [address] | | | | | [address] | [phone] | | | | | [phone] | | | +--------+ + + + [...]
--- OUTSIDE RECORDS SUMMARY | ~2020-03-21 | XMS | Encounter Summary ---
Demographics + + + | Address | [address] | | | [place] [address] | + + + | Home Phone [...] | Author | [facility] | | | and [place] | + + + | Organization | [facility] | | | and [place] | + + + | Address | Unknown | + + + | Phone | Unavailable | + + + Support + + + + + | Name | Relationship | Address | Phone | + + + + + | India Tilley | ECON | [phone] | | | | | [place], [place] | | | | | [address] | | + + + + + [...] Providers + +------+ + | Care Construction Plumber Name | Role | Phone | + +------+ + PCP | Unavailable | + +------+ + Encounter Details +--------+---------+ + + + | Date | Type | Department | Care Team | Description | +--------+---------+ + + + | 01/04/ | Surgery | [facility] | Santos Stephenson | Right Transposed | | 2018 | | MED CTR [facility] INTRA OP | MD Kinga, FACS [address] | Basilic Vein to | | | | [address] | [place] | Proximal Radial | | | | [place], [place] | [place] [address] | Artery | | | | [address] | [phone] | | | | | [phone] | | | +--------+---------+ + + + [...] + + + | Blood Pressure | 180/75 | 01/04/2018 4:15 PM | | | | | PDT | | + + + + + | Pulse | 71 | 01/04/2018 4:15 PM | | | | | PDT | | + + + + + | Temperature | 36.5 C (97.7 F) | 01/04/2018 3:54 PM | | | | | PDT | | + + + + + | Respiratory Rate | 12 | 01/04/2018 4:15 PM | | | | | PDT | | + + + + + | Oxygen Saturation | 97% | 01/04/2018 4:15 PM | | | | | PDT [...] what medicines and drugsyou take. This includes opmi-rhi-qcv nter medicines, herbs, supplements, alcohol or other [...] ke ep you safe. Date Last Reviewed: 08/13/201619993762-6693 [employer]. [address] [place] [address]. All righ ts reserved. This information is not intended as a substitute for professional medical care. Always follow your healthcare professional's instructions. [facility] POST-OP INSTRUCTIONS: Arterio-Venous Fistula 1. Keep [...] + + + +---------+ + + | Lancolga MISC | by Does not apply | [...] might be diff erent from the original. [facility] [place] SURGICAL INTERIM HISTORY [...] tunneled catheter worked well yesterday. I called [facility] and th ey confirmed catheter worked well. Considering this, I will not Change the catheter. Jus t do the arm fistula creation. PHYSICIAN'S VERIFICATION OF INFORMED CONSENT FOR BLOOD TRANSFUSION There is not a reasonable possibility that blood transfusion will be necessary as a result of the patient's procedure. Electronically signed by: Santos Stephenson, 01/04/2018 12:57 [facility] ield, Reynold Donato MD, FACS - 12/30/2017 10:00 AM PDTFormatting of this note might be different from th e original. Surgery Note Referring Provider: Gopi Muñoz DO Patient Identification: Estefain Tilley 1945 Is a 72 y.o. female [...] ? Francisca Womack PA-C Who is your Rag Cutting Machine Feeder/Kidney Specialist ? Dr. Muñoz When was the [...] dialysis on Wednesday, Wednesday and Fridays in [place]. She states she has had breast cancer, had a LEFT side mastectomy. CARDIAC: Denies OK, chest pain or tightness. RISK: Never smoker, current 38 year diabetic. Family Hx of diabetes. States mother had kid cedric failure NICO: Patient has previously been diagnosed with sleep apnea. She had a sleep study performe d at [facility] but does not wear a CPAP [...] [facility] MAIN OR Allergies Allergen Reactions Lisinopril [...] REPORT: PATIENT NAME : Estefani Tilley EQUIPMENT: [employer] M-Turbo with 10-5 mHertz probe. INDICATIONS: Dialysis [...] FACS Vascular and General Surgery I Karena Hong am acting as a scribe on behalf of, and in the presence of Santos kulkarni MD, FACS. I have reviewed and edited this note. Karena Hong CMA 12/30/17 Santos Donato MD, FACS, personally performed the services described in this docume ntation, as scribed by Karena Hong CMA in my presence, and it is both accurate and complet e. Karena Hong CMA 12/30/2017 10:45 CC: Francisca Womack PA-C, Gopi Muñzo DO documented i n this encounter Miscellaneous Notes Op Note - Santos Stephenson MD, RHONA - 01/04/2018 3:54 PM [facility] Pt. Name/Age/: Estefani Tilley 72 y.o. 1945 Med. Record Number: [id number] Date of admission: 01/04/2018 Date of Operation/Procedure: [...] infiltrated in the anterior upper arm. The Woodside tunnel er was passed subcutaneous in the anterior upper arm. The patient was heparinized (5000 uni ts). After a 3 minute circulation time the basilic vein was divided distally. The basilic vein was carefully passed through the Woodside tunneler, keeping orientation correct. The vein was [...] by: Santos Stephenson MD, FACS, 01/04/2018 15:55 [facility] documented i n this encounter Plan [...] | | | | | PDT | ([facility]) (N18.5) | | + +--------+ [...] + | [facility] | [address] | [place] | [phone] | | [facility] | | [address] | | | - LABORATORY | | | | + + + + + PTT (01/04/2018 11:52 AM PDT) + +-------+ + + + | Component | Value | Ref Range | Performed | Pathologist | | | | | At | Signature | + +-------+ + + + | aPTT | 30 | 22 - 36 seconds | [facility] [...] [address] | [place] | [phone] | | [facility] | | [address] | | | - LABORATORY | | [...] [address] | [place] | [phone] | | [facility] | | [address] | | | - LABORATORY | | [...] + | [facility] | [address] | [place] | [phone] | | [facility] | | [address] | | | - LABORATORY | | [...] not | 16 (L)Comment: | >=60 | [facility] | | | | GLOMERULAR FILTRATION | mL/min/1.73m2 | [facility] | | | [place] | RATE,ESTIMATED | | MEDICAL | | | | mL/min/1.87e8Qgqs than | | CENTER - | | [...] ST. | [address] | [place] | [phone] | | [facility] | | [address] | | | - LABORATORY | | [...] Shortness of Breath, Starting | | | e 01/04/18 at 1528, For 1 dose, | [...] PDT | | | | | Starting e 01/04/18 at 1338, | | | | | | | Intra-op | | | | | | + +-------+ +---------+---+ + +---+---+ | | | +---+---+ + +-------+ +--------+---+ + | bupivacaine 0.25%-EPINEPHrine | Given | 01/05/20 | 10 mLs | | Surgical | | 1:200,000 injection PRN, | | 18 3:34 | | | Site | | Starting e 01/04/18 at 1534, | | PM PDT | [...] if SBP <90., Starting | | | e 01/04/18 at 1528, Hold if HR > [...] | | | For HR <50, Starting e 01/04/18 | | | at 1528, For 2 doses, May repeat | | | one time after 1min, | | | Recovery/Phase I | | + +---+ | | | + +---+ + +-------+ +---------+---+ + | heparin 2500 UNITS in 250 mL | Given | 01/05/20 | 250 mLs | | Surgical | | 0.9% Normal Saline PRN, Starting | | 18 1:38 | | | Site | | 01/04/18 at 1338, Intra-op | | PM [...]
--- OUTSIDE RECORDS SUMMARY | ~2020-03-21 | XMS | Encounter Summary ---
Demographics + + + | Address | [address] | | | [place] [address] | + + + | Home Phone [...] Author | [facility] | | | and [place]it[place] | + + + | Organization | [facility] | | | and [place] | + + + | Address | Unknown | + + + | Phone | Unavailable | + + + Support + + + + + | Name | Relationship | Address | Phone | + + + + + | India Tilley | ECON | [address] | | | | | [place], [place] | | | | | [address] | | + + + + + [...] Team Providers + +------+ + | Care Beauty Therapist Name | Role | Phone | + +------+ + PCP | Unavailable | + +------+ + Encounter Details +--------+ + + + + | Date | Type | Department | Care Team | Description | +--------+ + + + + | 09/25/ | [facility] | [facility] | Patricia, | | | 2007 - | Encounter | MED CTR CANCER | Venkatesh Forte MD [address] | | | | CENTER [address] | [address] | | | 10/13/ | | [place] | [place] [address] | | | 2007 | | [address] | [phone] | | | | | [phone] | | | +--------+ + + + [...]
--- OUTSIDE RECORDS SUMMARY | ~2020-03-21 | XMS | Encounter Summary ---
Demographics + + + | Address | [address] | | | [place] [address] | + + + | Home Phone [...] Author | [facility] | | | and [place] | + + + | Organization | [facility] | | | and [place] | + + + | Address | Unknown | + + + | Phone | Unavailable | + + + Support + + + + + | Name | Relationship | Address | Phone | + + + + + | India Tilley | ECON | [address] | | | | | [place], [place] | | | | | [address] | | + + + + + [...] Team Providers + +------+ + | Care Elementary School Music Teacher Name | Role | Phone | [...] [place] | | | | | [address] | [address] | | | | | [phone] | | | +--------+ + + + [...] [facility] for consult: need to fax to [facility] closer t o appt. RU documented [...]
--- OUTSIDE RECORDS SUMMARY | ~2020-03-21 | XMS | Encounter Summary ---
Demographics + + + | Address | [address] | | | [place] [address] | + + + | Home Phone [...] Author | [facility] | | | and [place] | + + + | Organization | [facility] | | | and [place] | + + + | Address | Unknown | + + + | Phone | Unavailable | + + + Support + + + + + | Name | Relationship | Address | Phone | + + + + + | India Tilley | ECON | [address] | | | | | [place], [place] | | | | | [address] | | + + + + + [...] Team Providers + +------+ + | Care Rat Trapper Name | Role | Phone | + [...] 2019 | | [address] | Health Safety Specialist | intervertebral disc | | | | [facility] | | (pyogenic), thoracic | | | | [address] | | region ([facility]); | | | | [phone] | | Osteomyelitis of | | | | | | thoracic vertebra | | | | | | ([facility]) | +--------+ + + + + Social [...] section. | | | | | region ([facility]) | | | | | | Osteomyelitis of | | | | | | thoracic vertebra | | | | | | ([facility]) | | + +--------+ + + + | C-REACTIVE PROTEIN | Routin | 06/13/2019 | Infection of | Results for this | | | e | 3:12 PM | intervertebral disc | procedure are in the | | | | PDT | (pyogenic), thoracic | results section. | | | | | region ([facility]) | | | | | | Osteomyelitis of | | | | | | thoracic vertebra | | | | | | ([facility]) | | + +--------+ + + + [...] REFERENCE | | | | performed at [facility];[address] | | LAB | | | | [place] | | [facility] | | | | [address];[place] [address] | | LABORATORY | | + + + + + + + + | Specimen | + + | Blood | + + + + + + + | Performing | Address | City/State/Zipcode | Phone Number | | Organization | | | | + + + + + | REFERENCE LAB | [facility] | [place] | [phone] | | [address] | [address] | | | LABORATORY | | | | + + + + + | REFERENCE LAB | [address] [facility] | [place] | | | [facility] | [address] | [address] | | | LABORATORY | | | [...] REFERENCE | | | | performed at [facility];[address] | | LAB | | | | [place] | | [facility] | | | | [address];[place] [address] | | LABORATORY | | + + + + + + + + | Specimen | + + | Blood | + + + + + + + | Performing | Address | City/State/Zipcode | Phone Number | | Organization | | | | + + + + + | REFERENCE LAB | [address] [facility] | [place] | [phone] | | [facility] | [address] | [address] | | | LABORATORY | | | | + + + + + | REFERENCE LAB | [address] | [place], [place] | | | [facility] | [address] | [address] | | | LABORATORY | | | [...]
--- OUTSIDE RECORDS SUMMARY | ~2020-03-21 | XMS | Encounter Summary ---
Demographics + + + | Address | [address] | | | [place] [address] | + + + | Home Phone [...] | Author | [facility] | | | and [place] | + + + | Organization | [facility] | | | and [place] | + + + | Address | Unknown | + + + | Phone | Unavailable | + + + Support + + + + + | Name | Relationship | Address | Phone | + + + + + | India Tilley | ECON | [address] | | | | | [place], [place] | | | | | [address] | | + + + + + [...] Providers + +------+ + | Care Supervisor Accounting Clerks Name | Role | Phone | [...] [place], | | | | | [place] | [facility], | [place] [address] | | | | | RELATED [place] | [place] | Phone: | | | | | MONTHLY | [address] | [phone] | | | | | 20&/> YR OLD | Phone: | Fax: | | | | | 4/> VISITS | [phone] | [phone] | | | | | | Fax: | | | | | | | [phone] | | +--------+--------+ + + + + Encounter Details +--------+ + + + + | Date | Type | Department | Care Team | Description | +--------+ + + + + | 10/31/ | Off-Site | [facility] [place] | Gopi Muñoz | End stage renal | | 2019 | Visit | NEPHROLOGY [address] | M, DO [address] | disease (HCC) | | | | [address] | [address] [place] | (Primary Dx) | | | | [place] | [place] [address] | | | | | [address] | [phone] | | | | | [phone] | | | +--------+ + + + [...]
--- OUTSIDE RECORDS SUMMARY | ~2020-03-21 | XMS | Encounter Summary ---
Demographics + + + | Address | [address] | | | [place] [address] | + + + | Home Phone [...] + | Author | [facility] | | | and [place] | + + + | Organization | [facility] | | | and [place] | + + + | Address | Unknown | + + + | Phone | Unavailable | + + + Support + + + + + | Name | Relationship | Address | Phone | + + + + + | India Tilley | ECON | [address] | | | | | [place], [place] | | | | | [address] | | + + + + + [...] Providers + +------+ + | Care Front End Technician Name | Role | Phone | [...] [place], | | | | | [place] ESR[place] | [place], | [place] [address] | | | | | RELATED [place] | [place] | Phone: | | | | | MONTHLY | [address] | [phone] | | | | | 20&/> YR OLD | Phone: | Fax: | | | | | 4/> VISITS | [phone] | [phone] | | | | | | Fax: | | | | | | | [phone] | | +--------+--------+ + + + + [...] | dialysis (HCC) | | | | [place], [place] | [place] [address] | (Primary Dx) | | | | [address] | [phone] | | | | | [phone] | | | +--------+ + + + [...] HD in [address]and then was DC to [facility] [place], [place]. Unfortunat brandy, she has had intermittent [...] was lost to follow-up with her ID insurance consultant. 3. Hypertension-- Suboptimal control due to [...] was reviewed with the patient. 2. Renal PLANT CYTOLOGIST, Renal RD, Renal Charge Nurse, and myself attempted to vocational guidance counselor the patient at length today. It was discussed again that non adherence to scheduled treatments could lead to a poor outcome including increased CV morbidity, and . 3. Will need to recheck her HbA1c, PTH, iron profile next month. Electronically signed by Gopi Muñoz DO. 10/01/19 5:30 PM CC: [facility], [place] [facility], [place], [place]. document ed in this encounter Plan of Treatment Not on filedocumented as of this encounter Visit Diagnoses + + | Diagnosis | + + | ESRD (end stage renal disease) on dialysis (HCC) - Primary End stage renal disease | + + documented in this encounter
--- OUTSIDE RECORDS SUMMARY | ~2020-03-21 | XMS | Encounter Summary ---
Demographics + + + | Address | [address] | | | [place] [address] | + + + | Home Phone [...] | Author | [facility] | | | and Kamaljitana | + + + | Organization | [facility] | | | and [place] | + + + | Address | Unknown | + + + | Phone | Unavailable | + + + Support + + + + + | Name | Relationship | Address | Phone | + + + + + | India Tilley | ECON | [address] | | | | | [place], [place] | | | | | [address] | | + + + + + [...] Providers + +------+ + | Care Assistant Account Manager Name | Role | Phone | + +------+ + PCP | Unavailable | + +------+ + Encounter Details +--------+ + + + + | Date | Type | Department | Care Team | Description | +--------+ + + + + | 10/27/ | Abstract | [facility] | Gopi Muñoz | | | 2018 | | NEPHROLOGY [address] | M, DO [address] | | | | | [address] | [address] | | | | | [place] | [place] [address] | | | | | [address] | [phone] | | | | | [phone] | | | +--------+ + + + [...] | EXTERNAL LAB: ELIZABETH | Routin | 10/25/2017 | | Results [...] +--------+ + + + | EXTERNAL LAB: PTH, | Routin | 10/25/2017 | | Results [...] | EXTERNAL LAB: TIFFANY | Routin | 10/25/2017 | | Results [...]
--- OUTSIDE RECORDS SUMMARY | ~2020-03-21 | XMS | Encounter Summary ---
Demographics + + + | Address | [address] | | | [place] [address] | + + + | Home Phone [...] + | Author | [facility] | | | and Kamaljitana | + + + | Organization | [facility] | | | and [place] | + + + | Address | Unknown | + + + | Phone | Unavailable | + + + Support + + + + + | Name | Relationship | Address | Phone | + + + + + | India Tilley | ECON | [address] | | | | | [place], [place] | | | | | [address] | | + + + + + [...] Providers + +------+ + | Care Dry Cleaner Helper Name | Role | Phone | [...] | | | | | [address] | [place] | | | | | [place] | [address] | | | | | [address] | | | | | | [phone] | | | +--------+ + + + [...] +----+---+ + + | | 2 | [place] | | | | 2 | 43-degrees [...] | 02/05/18129 by | | eral | [id number] catheter system; | Keren Hernandez RN | [...] EVALUATION Estefani Tilley 72 y.o. female 1945 [id number] Procedure(s) INSERTION SHUNT HEMODIALYSIS W/ PERMACATH (Right [...] signed by Lyndsay Mckeon DO 02/04/2018 23:14 [facility] signed by Lyndsay Mckeon DO at 11:14 [...] EVALUATION Estefani Tilley 72 y.o. female 1945 [id number] Procedure(s): INSERTION SHUNT HEMODIALYSIS W/ PERMACATH (Right [...]
--- OUTSIDE RECORDS SUMMARY | ~2020-03-21 | XMS | Encounter Summary ---
Demographics + + + | Address | [address] | | | [place] [address] | + + + | Home Phone [...] + + | Author | [facility] | | | and Kamaljitana | + + + | Organization | [facility] | | | and [place] | + + + | Address | Unknown | + + + | Phone | Unavailable | + + + Support + + + + + | Name | Relationship | Address | Phone | + + + + + | India Tilley | ECON | [address] | | | | | [place], [place] | | | | | [address] | | + + + + + [...] Team Providers + +------+ + | Care Refinery Operator Helper Name | Role | Phone [...] [address] | | | | | [place], [place] | [address] [place], [place] | | | | | [address] | [address] | | | | | [phone] | | | +--------+ + + + [...]
--- OUTSIDE RECORDS SUMMARY | ~2020-03-21 | XMS | Encounter Summary ---
Demographics + + + | Address | [address] | | | [place] [address] | + + + | Home Phone [...] | Author | [facility] | | | and Kamaljitana | + + + | Organization | [facility] | | | and [place] | + + + | Address | Unknown | + + + | Phone | Unavailable | + + + Support + + + + + | Name | Relationship | Address | Phone | + + + + + | India Tilley | ECON | [address] | | | | | [place], [place] | | | | | [address] | | + + + + + [...] Team Providers + +------+ + | Care Master Scheduler Name | Role | Phone | + [...] [address] [place] | | | | | [place], [place] | [place] [address] | | | | | [address] | [phone] | | | | | [phone] | | | +--------+ + + + [...] HD in 018and then was DC to [facility] [place], [place]. Unfortunat brandy, she has had intermittent [...] Gopi Muñoz DO. 07/30/19 3:11 PM CC: Roy K[place], [place] [facility], [place], [place]. document ed in this encounter Plan of Treatment Not on filedocumented as of this encounter Visit Diagnoses + + | Diagnosis | + + | ESRD (end stage renal disease) on dialysis (HCC) - Primary End stage renal disease | + + documented in this encounter
--- OUTSIDE RECORDS SUMMARY | ~2020-03-21 | XMS | Encounter Summary ---
Demographics + + + | Address | [address] | | | [place] [address] | + + + | Home Phone [...] Author | [facility] | | | and Kamaljitana | + + + | Organization | [facility] | | | and [place] | + + + | Address | Unknown | + + + | Phone | Unavailable | + + + Support + + + + + | Name | Relationship | Address | Phone | + + + + + | India Tilley | ECON | [address] | | | | | [place], [place] | | | | | [address] | | + + + + + [...] Team Providers + +------+ + | Care Comber Fixer Name | Role | Phone | + +------+ + PCP | Unavailable | + +------+ + Encounter Details +--------+ + + + + | Date | Type | Department | Care Team | Description | +--------+ + + + + | 11/18/ | [facility] | [facility] | Patricia, | | | 2007 - | Encounter | MED CTR CANCER | Venkatesh Forte MD [address] | | | | | CENTER [address] | [address] | | | 12/11/ | | [place] | [place] [address] | | | 2007 | | [address] | [phone] | | | | | [phone] | | | +--------+ + + + [...]
--- OUTSIDE RECORDS SUMMARY | ~2020-03-21 | XMS | Encounter Summary ---
Demographics + + + | Address | [address] | | | [place] [address] | + + + | Home Phone [...] | Author | [facility] | | | and Kamaljitana | + + + | Organization | [facility] | | | and [place] | + + + | Address | Unknown | + + + | Phone | Unavailable | + + + Support + + + + + | Name | Relationship | Address | Phone | + + + + + | India Tilley | ECON | [address] | | | | | [place], [place] | | | | | [address] | | + + + + + [...] Team Providers + +------+ + | Care Back Roll Lathe Operator Name | Role | Phone | + +------+ + PCP | Unavailable | + +------+ + Encounter Details +--------+ + + + + | Date | Type | Department | Care Team | Description | +--------+ + + + + | 02/26/ | [facility] | [facility] | Patricia, | | | 2006 - | Encounter | MED CTR CANCER | Venkatesh Forte MD [address] | | | | | CENTER [address] | [address] | | | 03/12/ | | [place] | [place] [address] | | | 2006 | | [address] | [phone] | | | | | [phone] | | | +--------+ + + + [...]
--- OUTSIDE RECORDS SUMMARY | ~2020-03-21 | XMS | Encounter Summary ---
Demographics + + + | Address | [address] | | | [place] [address] | + + + | Home Phone [...] | Author | [facility] | | | and [place]al[place]it[place] | + + + | Organization | [facility] | | | and [place] | + + + | Address | Unknown | + + + | Phone | Unavailable | + + + Support + + + + + | Name | Relationship | Address | Phone | + + + + + | India Tilley | ECON | [address] | | | | | [place], [place] | | | | | [address] | | + + + + + [...] Team Providers + +------+ + | Care Board Layer Name | Role | Phone | + [...] | Radiology | Diagnoses | Echaiz | [facility] | | | | | Infection | Nick Miller | [address] | | | | | of | Paulie, | [address] | | | | | 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 [address] | | | | | al disc | [address] | [place], [place] | | | | | (pyogenic), | [place], [place] | [address] | | | | | thoracic | [address] | Phone: | | | | | region ([facility]) | Phone: | [phone] | | | | | | [phone] | Fax: | | | | | 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: | [phone] | | | | | s of | [phone] | | | | | | thoracic [...] + + | 05/22/ | Hospital | [facility] | Fabiana Miller, | No Show | | 2019 | Encounter | [facility] MRI | Nick Apodaca MD | | | | | [address] | [address] | | | | | [place], [place] | [place] [address] | | | | | [address] | [phone] | | | | | [phone] | | | +--------+ + + + [...]
--- OUTSIDE RECORDS SUMMARY | ~2020-03-21 | XMS | Encounter Summary ---
Demographics + + + | Address | [address] | | | [place] [address] | + + + | Home Phone [...] | Author | [facility] | | | and Kamal[place]it[place] | + + + | Organization | [facility] | | | and [place] | + + + | Address | Unknown | + + + | Phone | Unavailable | + + + Support + + + + + | Name | Relationship | Address | Phone | + + + + + | India Tilley | ECON | [address] | | | | | [place], [place] | | | | | [address] | | + + + + + [...] Team Providers + +------+ + | Care Conference Assistant Name | Role | Phone | [...] | | | | CENTER [address] | [address] [place] | unspecified type | | 03/24/ | | [place], [place] | [place] [address] | ([facility]) (Primary Dx); | | 2018 | | [address] | [phone] | Acute midline | | | | [phone] | | thoracic back pain; | | [...] | | | | | ([facility]), Right hip | | | [...] might be diff erent from the original. [facility] Estefani Tilley Emergency Department Encounter Note [address] [place] [address] PCP:Francisca Womack PA-C [phone] CHIEF COMPLAINT: Chief Complaint Patient presents with Rib Pain ED Room: [address] Estefani Tilley is a 73 y.o. female who presents to the Emergency Department Patient reports left posterior rib pain. Had negative x ray at [facility] today. Loi lu had a fall 2 [...] tried no associated recent trauma. 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 (See chart for [...] Discussed case with neurosurgery at [facility] at this time recommend IR biopsy discussed case with radiology here who recommen ds IR specialty service for this agree with plan discussed case with hospitalist services at [facility] will be admitted for further work-up treatment [...] Intravenous Administered By Victor M Prieto RN gadobutrol (GADAVIST) injection 7 mL Admin [...] Portions of this chart were created with [employer] voice recognition software. Inadvertent so und alike substitutions may be present and are unintentional Carlos Baker MD 03/23/19 2339 uttice, Galen Charles RN - 03/23/2019 5:27 PM PDTPatient reports left posterior rib pain. Had negative x ra y at [facility] today. Patient had a fall 2 months [...] R?MRN: | | | | | | [id number] | | | [id number] | | | riteri | | | [...] | | | St. | | | [place] | | | y | | | [...] | | | [facility] | | | [place] | | | [address] | | | [facility] | | | St[facility] | | | [place] | | | y | | | [...] | | | St. | | | [place] | | | y H. | | [...] | | e of | | | [place] | | | | | | mckeon [...] | | | St. | | | [place] | | | y H. | | [...] the | | | | | | trade embalmer | | | al | | | [...] | | | St. | | | [place] | | | y H. | | [...] | | e of | | | [place] | | | | | | mckeon [...] | | | [facility] | | | [place] | | | [place] | | | ID | | | [...] | | | Luke[facility] | | | [place] | | | [place] | | | ID | | | [...] | | | Luke[facility] | | | [place] | | | [place] | | | ID | | | [...] | | | Luke[facility] | | | [place] | | | [place] | | | ID | | | [...] | | | [facility] | | | [place] | | | [place] | | | ID | | | [...] | | | [facility] | | | [facility] | | | | | | HEALTH [...] | | | [id number] | | | [id number] | | | [id number] | | | [...] ST. | [address] | [place] | [phone] | | [facility] | | [address] | | | - LABORATORY | | [...] [address] | [place] | [phone] | | [facility] | | [address] | | | - LABORATORY | | [...] | [address] | [address] | [place] | [phone] | | [facility] | | [address] | | | - LABORATORY | | [...] + | [address] | [address] | [place] | [phone] | | [facility] | | [address] | | | - LABORATORY | | [...] | mL/min/1.73m2 | REINA | | | [place] | RATE,ESTIMATED | | MEDICAL | | | | mL/min/1.43g3Mpqg than | | CENTER - | | [...] [address] | [place] | [phone] | | [facility] | | [address] | | | - LABORATORY | | [...] [address] | [place] | [phone] | | [facility] | | [address] | | | - LABORATORY | | [...] [address] | [place] | [phone] | | [facility] | | [address] | | | - LABORATORY | | [...] lymphadenopathy. | | | LUNGS:There is a ycjvm-ta-wrmnjqcx layering left pleural effusion. | | | [...] or hilar | | lymphadenopathy.LUNGS:There is a wnqtl-cd-qbvbjmug layering left pleural effusion. | | There [...] very highly suspicious for osteomyelitis/discitis at the I16-R47xprwu.Small to | | moderate layering left pleural [...]
--- OUTSIDE RECORDS SUMMARY | ~2020-03-21 | XMS | Encounter Summary ---
Demographics + + + | Address | [address] | | | [place] [address] | + + + | Home Phone [...] | Author | [facility] | | | and Kamaljitana | + + + | Organization | [facility] | | | and [place] | + + + | Address | Unknown | + + + | Phone | Unavailable | + + + Support + + + + + | Name | Relationship | Address | Phone | + + + + + | India Tilley | ECON | [address] | | | | | [place], [place] | | | | | [address] | | + + + + + [...] Providers + +------+ + | Care Green Pipefitter Name | Role | Phone | + [...] | | | | renal | [place] [address] | [address] | | | | | disease | | [address] | | | | | (HCC) | CONFEDERATED | [address] | | | | | Procedures | WAY | [place], | | | | | [place] OFFICE | [place], | [place] [address] | | | | | OUTPATIENT | [place] [address] | Phone: | | | | | VISIT 25 | Phone: | [phone] | | | | | MINUTES [place] | [phone] | Fax: | | | | | ESRD RELATED | Fax: | [phone] | | | | | SVC MONTHLY | [phone] | | | | | | 20&/> [...] | | [place] | [place] [address] | | | | | [address] | [phone] | | | | | [phone] | | | +--------+ + + + [...]
--- OUTSIDE RECORDS SUMMARY | ~2020-03-21 | XMS | Encounter Summary ---
Demographics + + + | Address | [address] | | | [place] [address] | + + + | Home Phone [...] Author | [facility] | | | and [place]al[place]it[place] | + + + | Organization | [facility] | | | and [place] | + + + | Address | Unknown | + + + | Phone | Unavailable | + + + Support + + + + + | Name | Relationship | Address | Phone | + + + + + | India Tilley | ECON | [address] | | | | | [place], [place] | | | | | [address] | | + + + + + [...] Team Providers + +------+ + | Care Grain Elevator Operator Name | Role | Phone | [...] | | [place] | [place] [address] | | | | | [address] | [phone] | | | | | [phone] | | | +--------+ + + + [...] HTN and diabetic glomerul osclerosis at the [facility]. She [...]
--- OUTSIDE RECORDS SUMMARY | ~2020-03-21 | XMS | Encounter Summary ---
Demographics + + + | Address | [address] | | | [place] [address] | + + + | Home Phone [...] | Author | [facility] | | | and Kamal[place]it[place] | + + + | Organization | [facility] | | | and [place] | + + + | Address | Unknown | + + + | Phone | Unavailable | + + + Support + + + + + | Name | Relationship | Address | Phone | + + + + + | India Tilley | ECON | [address] | | | | | [place], [place] | | | | | [address] | | + + + + + [...] Providers + +------+ + | Care Safety Attendant Name | Role | Phone | [...] | [address] | | | | | [address] | | | | | | [phone] | | | +--------+--------+ + + + [...] UP PRESC RIPTION WITH VALID ID . LIC#[id number] EXP:[id number] elephone Encounter - Tiara Wendy Casper [...] in the designated area for the patient last picker. Please contact the patient to let the patient know that the Rx is ready. The patient will need to provide a form of ID when p icking up the prescription. Please verify the patients ID at last picker. elephon e Encounter - Robina [place] - 01/30/2019 1:09 PM PDTPatient called requesting refill . Medication: Oxycodone Out in: has no more Who will last picker: Deaisaiaha documented in this encounter Plan of [...]
--- OUTSIDE RECORDS SUMMARY | ~2020-03-21 | XMS | Encounter Summary ---
Demographics + + + | Address | [address] | | | [place] [address] | + + + | Home Phone [...] Author | [facility] | | | and Kamaljitana | + + + | Organization | [facility] | | | and [place] | + + + | Address | Unknown | + + + | Phone | Unavailable | + + + Support + + + + + | Name | Relationship | Address | Phone | + + + + + | India Tilley | ECON | [address] | | | | | [place], [place] | | | | | [address] | | + + + + + [...] Team Providers + +------+ + | Care Flooring Mechanic Name | Role | Phone | [...] [address] [place] | | | | | [place], [place] | [place] [address] | | | | | [address] | [phone] | | | | | [phone] | | | +--------+ + + + [...] - 09/22/2017 3:26 PM Alyssa GONZALEZ from [facility] is calling to schedule an appointment for patient due to swelling in jasen th legs. Patient has not established with nephrology. On 05/30/17 patient was scheduled with Dr. Moseley but it was cancelled due to inability to contact patient. Most recent labs availa ble are from April 2017 and patient hasn't seen her PCP since June of 2017. [facility] draw labs and send over with current progress note. shivam in this encounter Plan of Treatment Not on filedocumented as of this encounter Visit Diagnoses Not on filedocumented in this encounter"
--- OUTSIDE RECORDS SUMMARY | ~2020-03-21 | XMS | Encounter Summary ---
Demographics + + + | Address | [address] | | | [place] [address] | + + + | Home Phone [...] Author | [facility] | | | and Kamaljitana | + + + | Organization | [facility] | | | and [place] | + + + | Address | Unknown | + + + | Phone | Unavailable | + + + Support + + + + + | Name | Relationship | Address | Phone | + + + + + | India Tilley | ECON | [address] | | | | | [place], [place] | | | | | [address] | | + + + + + [...] Team Providers + +------+ + | Care Biomedical Equipment Tech Name | Role | Phone | [...] | Surgery | BETH LIZ | Jose Jiménze, | TUNNEL PICC LINE | | 2019 | | [facility] | MD [address] | PLACEMENT-6fr 22cm | | | | INTRA OP [address] | [address] [place], | BARD Power Line | | | | [place] | [place] [address] | | | | | [address] | [phone] | | | | | [phone] | | | +--------+---------+ + + + [...] [facility] [address] [facility] [address] [facility] [address] [place] [address] [phone] [facility] [address] [facility] [address] Discharge Disposition: Home with [facility]ants This Admission: ID, Nephrology Hospital Course: 73-year-old female with history of ESRD on hemodialysis, hypertension, type 2 diabetes, hyp othyroidism, chronic anemia, hyperlipidemia with a history of stroke transferred from [facility] for evaluation of T11-T12 lesion noted on [...] had planned to go to SNF ([facility] in [place], [place] - of which has accepted her and [...] dialysis days after dialysis Osteomyelitis/Discitis of T11, [id number] -MRI spine 03/23/19: "mild paravertebral soft tissue [...] dialysis patient - has OP clinic in [place] already Macrocytic anemia likely secondary to-likely anemia [...] Value Units Date/Time Culture, Aerobic + Anaerobic [[id number]] Collected: 03/24/19 1514 Order Status: Completed Lab Status: Final result Updated: 03/29/19 0718 Specimen: Body Fluid from Vertebrae, Thoracic FINAL REPORT -- No Growth No anaerobes isolated Gram Stain Few Neutrophils No squamous epithelial cells seen No organisms seen Comment: Performed by [facility] [address] [place] [address] Gram Stain [[id number]] Collected: 03/24/19 1514 Order Status: Canceled Lab Status: No result Updated: 03/24/19 151 Specimen: Body Fluid from Vertebrae, Thoracic Culture, AFB Smear [[id number]] Collected: 03/24/19 151 Order Status: Completed Lab Status: Preliminary result Updated: 03/25/19 1054 Specimen: Body Fluid from Vertebrae, Thoracic AFB Smear Result No Acid Fast Bacilli Seen Comment: Performed by [facility] [address] [place] [address] Culture, Fungus, Smear [[id number]] Collected: 03/24/19 151 Order Status: Completed Lab Status: Preliminary result Updated: 03/25/19 1039 Specimen: Body Fluid from Vertebrae, Thoracic CALCOFLUOR No fungal elements seen Comment: Performed by [facility] [address] [place] [address] Culture, Blood [[id number]] Collected: 03/23/19 2333 Order Status: Completed Lab Status: Final result Updated: 03/28/19 2352 Specimen: Blood Culture No growth after 5 days incubation. Culture, Blood [[id number]] Collected: 03/23/19 2255 Order Status: Completed Lab [...] this chart may have been created with [employer] voice recognition software. Occasi onal wrong-word or [...] | | | | ([facility]), Right hip | | | | [...] 03/31/2019 5:42 PM PDTPatient left with family, [facility] supplies and i nstructions received before discharge and RX's filled at outpt pharmacy. VSS, ambulating wit h SBA, A&O x4, accepting of discharge. Dialysis completed this AM. Pain controlled with q4 o xy, LD 1400. Home health will f/u tomorrow. AVS reviewed and sent with patient, verbalized u nderstanding. Merry Hess MSW - 03/31/2019 11:05 AM PDTSOCIAL WORK PLAN: Home with [facility] NEXT STEPS: 1. Pt to follow up with [facility] 2. [facility] to follow up with pt at dc INTERVENTION: SW spoke with [facility], pt has a $2.50 out of pocket cost weekly, pt is agreeable to pay for this. Therefore pt will dc today with [facility]. SW provided [facility] with hard script for IV abx. SW faxed over HH order to [facility], SW faxed over IV vanco script to [facility]. [facility] notified of pt's dc home. notified. [facility] to meet with pt later this afternoon for teach. SW provided pt with 3 gas cards to assist with transportation. No further dc needs identified. SW received call from [facility] clinic that they cannot provide IV Vanco as Vanco h as not been consigned by [facility] that has privileges in [place]. IV Vanco will now be done b y Candie, [employer] Industrial Locomotive Operator faxed over hard script to [facility]. They will have both IV Abx ready and will teach pt shortly. No further dc needs identified. CONTACTS: Yina [place]: sister India Tilley: sister [place] Transportation: [place] Medicaid Transportation fax: [phone] [facility]: [phone] fax: [phone] [place] [phone] [facility]: [phone] [facility]: [phone] [facility] FAX: [phone] aMichelle bell DO - 03/31/2019 10:12 AM PDT Patient: Estefani Tilley Date of : 1945 Admit Date: 03/24/2019 Date of Service: 03/31/2019 PCP: Francisca Womack PA-C Hospital Day: Hospital Day: 8 Hospital Course: 73-year-old female with history of ESRD on hemodialysis, hypertension, type 2 diabetes, hyp othyroidism, chronic anemia, hyperlipidemia with a history of stroke [facility] of T11-T12 lesion noted [...] initially had planned to go to SNF ([facility] in [place], [place] - of which has accepted her [...] dialysis patient - has OP clinic in [place] already Macrocytic anemia likely secondary to-likely anemia [...] hoping to arrange home IV antibiotics through [facility]. Awaiting to see if insurance will cover [...] - 99 mg/dL Final Comment: Performed by [facility] [address] [place] [address] 03/30/2019 21:14 200 (H) 65 - 99 mg/dL Final Comment: Performed by [facility] [address] [place] [address] 03/30/2019 17:46 111 (H) 65 - 99 mg/dL Final Comment: Performed by [facility] [address] [place] [address] 12/09/2018 18:05 113 (H) 70 - 109 [...] this chart may have been created with [employer] voice recognition software. Occasi onal wrong-word or sound-alike substitutions may have occurred due to the inherent mckeon itations of voice recognition software. Please read the chart carefully and recognize, using context, where these substitutions have occurred Jesus Wade MD - 03/31/2019 8:26 AM PDT . Infectious Diseases Progress Note Pt. Name/Age/: Estefani Tilley 73 y.o. 1945 Med. Record Number: [id number] Date of admission: 03/24/2019 Patient admitted with [...] signed by: Jesus Whitney, 03/31/2019 8:26 [facility] Robb Phillips, PharmD - 03/31/2019 [...] Nunez MD - 03/30/2019 9:45 PM PDT [facility] INPATIENT ROUNDING NOTE Date of Service: 03/30/2019 Rounding Physician: Randy Corrigan MD Patient Name: Estefani Tilley : 1945 Medical Record: [id number] Hospital Summary: Estefani Tilley is a 73 y.o. female with a PMHx of ESRD, HTN, Dm type 2, hypothyroidism, HLd, CVA who is under the care of Dr Muñoz at [facility] who dialyzes MWF admitted with [...] Trace Corrigan MD, 03/30/2019, 21:45 an Saldivar, GANG BOSS - 03/30/2019 2:34 PM PDT SOCIAL WORK D/C PLAN:DC home with [facility] providing IV-ABX and [facility] providing picc care and lab draws vs [facility] NEXT STEPS: -SW will need to follow up with [facility] regarding providing IV-ABX to pt. -SW will need to follow up with [facility] regarding providing picc care and lab draws. -SW will need to follow up with [facility] regarding having pt receive vanco do se while at dialysis center if pt is to go home with IV-ABX -SW will need to follow up with [facility] if pt is unable to go home with IV-ABX rega ridng pt's DC -SW will need to fax SNF orders, scripts and PASRR to [facility] if pt is unable to go home -SW will need to provide gas cards to pt's family for transportation home. INTERVENTION:SW spoke with pt regarding acceptance to [facility] [place]. Pt is now wanting to go home with IV-ABX. SW spoke with [facility]. They go out to [place], [place] and have openings for nursing care. Referral faxed to [facility]. Pt is amenable to using [facility] for IV-ABX. SW spoke with CANDIE martinez who will run pt's be nefits to see if she can DC home with IV-ABX. Pt states that [facility] can provide teach to her son to help administer IV-ABX. SW left message for [facility] to see if they can provide vanco dose to pt at [facility] on Wednesday, Wednesday and Wednesday if pt is able to go home. Pt states that she does dialysis on Wednesday, Wednesday and Wednesday from 12:00-4:00. SW received phone call from [facility]. They have accepted pt for admission if [...] if pt is going to go to [facility]. ASSESSMENT/CHART REVIEW:73 yr old femalewith a history of ESRD on hemodialysis, hypertens ion, type 2 diabetes, hypothyroidism,chronic anemia,hyperlipidemia, hx of stroke [facility] [place] noted on MRI concerning fo r osteomyelitis. SW met with pt's sister, Yina, and her cousin, Keri, who were waiting in pt's room while s he was in dialysis. SW will need to follow up with pt re: d/c planning. Pt's sister and cousin related that pt mostly lives at Yina's house outside [place], [place], but does not like to be tied down because she enjoys attending [employer] festivals and many events. She does at [facility] dialysis weekly. Pt has a vehicle and is very independent. D/C TRANSPORT:Pt can be transported home or to [place] via family in a private car. They will need gas cards to help pay for transportation. BARRIERS TO D/C:none CONTACTS: Yina [place]: sister India Tilley: sister [place] Transportation: [place] Medicaid Transportation fax: [phone] [facility]: [phone] fax: [phone] [place] [phone] [facility]: [phone] [facility]: [phone] [facility] FAX: [phone] Nan Cheney MSW - 03/30/2019 12:57 PM PDTSOCIAL WORK D/C PLAN:SNF: [place] NEXT STEPS:Await bed availability INTERVENTION: SW called and left message for Mell at [facility] regarding if they are willing to accept pt and to discuss transportation to and from dialysis. SW also called and left message for [place] Medicaid transportation regarding if they can transp ort pt to and from dialysis upon DC. Pt states that she goes to [facility] in [place], [place] on Wed, Wed, and Fridays from 12:00-4:00 pm. SW left message with [facility] regarding if there was any way that they may also be able to help with transportation to and from dialysis while pt is in rehab and to ensure that pt still has her chair time scheduled. [facility] is only open M on, Wednesday and Wednesday. ASSESSMENT/CHART REVIEW:73 yr old femalewith a history of ESRD on hemodialysis, hypertens ion, type 2 diabetes, hypothyroidism,chronic anemia,hyperlipidemia, hx of stroke [facility] of [facility] lesion noted on MRI concerning fo r osteomyelitis. ROBIN met with pt's sister, Yina, and her cousin, Keri, who were waiting in pt's room while s he was in dialysis. SW will need to follow up with pt re: d/c planning. Pt's sister and cousin related that pt mostly lives at Yina's house outside [place], [place], but does not like to be tied down because she enjoys attending [employer] [place] festivals and many events. She does at [facility] weekly. Pt has a vehicle and is very independent. D/C TRANSPORT:tbd BARRIERS TO D/C:none CONTACTS: Yina La: sister India Tilley: sister [place] Transportation[place] Transportation fax: [phone] [facility]: [phone] fax: [phone] [place] [phone] [facility]: [phone] signed by JENNIFER Xavier at 03/30 1:09 [...] with a history of stroke transferred from [facility] for evaluation of T11-T12 lesion noted on [...] awaiting to hear from [facility], in [place] regarding possible acceptance. She is improved [...] dialysis patient - has OP clinic in [place] already ---> will need SW to help [...] - awaiting to hear back from [facility], in [place], [place] regarding possible acceptance there. Medically ready [...] Single Lumen 03/24/19 2143 Left Lateral Forearm wyln-qtf-ptfhuo daniel ter system 20 gauge;1 1/4 in [...] - 99 mg/dL Final Comment: Performed by [facility] [address] [place] [address] 03/29/2019 21:09 157 (H) 65 - 99 mg/dL Final Comment: Performed by [facility] [address] [place] [address] 03/29/2019 18:50 91 65 - 99 mg/dL Final Comment: Performed by [facility] [address] [place] [address] 12/09/2018 18:05 113 (H) 70 - 109 [...] this chart may have been created with Venus Concept voice recognition software. Occasi onal wrong-word or sound-alike substitutions may have occurred due to the inherent mckeon itations of voice recognition software. Please read the chart carefully and recognize, using context, where these substitutions have occurred rgJesus mcdonald MD - 03/30/2019 7:15 AM PDT . Infectious Diseases Progress Note Pt. Name/Age/: Estefani Tilley 73 y.o. 1945 Med. Record Number: [id number] Date of admission: 03/24/2019 Patient admitted with [...] signed by: Jesus Whitney, 03/30/2019 7:15 [facility] Mary Wade RN - 03/30/2019 6:16 AM PDT 5N Nursing Handoff Note Room # [facility]/501-02 ISO: None Full Code Item for assessment: [...] wishful of Monitoring Requirements [facility] Suicide Policy [facility] Suicide [...] 4:18 PM PDTSOCIAL WORK D/C PLAN:SNF: [place] NEXT STEPS:Await bed availability INTERVENTION: SW called and spoke with admissions person at [facility], they are still discussing pt's case. They [...] anemia,hyperlipidemia, hx of stroke [facility]T[facility] lesion noted on MRI concerning fo r osteomyelitis. SW met with pt's sister, Yina, and her cousin, Keri, who were waiting in pt's room while s he was in dialysis. SW will need to follow up with pt re: d/c planning. Pt's sister and cousin related that pt mostly lives at Yina's house outside [place], [place], but does not like to be tied down because she enjoys attending [employer] [place] festivals and many events. She does at [facility] weekly. Pt has a vehicle and is very independent. D/C TRANSPORT:tbd BARRIERS TO D/C:none CONTACTS: Yina La: sister India Tilley: sister [place] Medicaid Transportation: [facility]: [phone] fax: [phone] [place] [phone] signed by JENNIFER Contreras at 03/29/2019 4:20 PM PDTHsu, Randy Nunez MD - 03/29/2019 12:32 PM PDT [facility] INPATIENT ROUNDING NOTE Date of Service: 03/29/2019 Rounding Physician: Randy Corrigan MD Patient Name: Estefani Tilley : 1945 Medical Record: [id number] Hospital Summary: Estefani Tilley is a 73 y.o. female with a PMHx of ESRD, HTN, Dm type 2, hypothyroidism, HLd, CVA who is under the care of Dr Muñoz at [facility] who dialyzes MWF admitted with [...] with a history of stroke transferred from [facility] for evaluation of T11-T12 lesion noted on [...] awaiting to hear from [facility], in [place] regarding possible acceptance. May be able [...] dialysis patient - has OP clinic in [place] already ---> will need SW to help [...] - awaiting to hear back from [facility], in [place], [place] regarding possible acceptance there. Could possibly [...] Single Lumen 03/24/19 2143 Left Lateral Forearm tilb-qcy-seprwy daniel ter system 20 gauge;1 1/4 in [...] - 99 mg/dL Final Comment: Performed by [facility] [address] [place] [address] 03/28/2019 21:06 144 (H) 65 - 99 mg/dL Final Comment: Performed by [facility] [address] [place] [address] 03/28/2019 11:22 119 (H) 65 - 99 mg/dL Final Comment: Performed by [facility] [address] [place] [address] 12/09/2018 18:05 113 (H) 70 - 109 [...] this chart may have been created with Venus Concept voice recognition software. Occasi onal wrong-word or [...] Tilley 73 y.o. 1945 Med. Record Number: [id number] Date of admission: 03/24/2019 Patient admitted with [...] signed by: Jesus Whitney, 03/29/2019 7:35 [facility] zech, Carolina Kearney RN - 03/28/2019 7:08 PM [id number] - Report called to Sanjuanita GONZALEZ. Pt's belongings . I pad and I phone w/ chargers as well as pt's purse, and shoes, and shirt and pants all sent with her to [address] [place] [address]. Pt had been sitting up eating dinner. [...] with a history of stroke transferred from [facility] for evaluation of T11-T12 lesion noted on MRI concerning for osteomyeliti s. Infectious disease consulted. She underwent CT guided aspiration from her thoracic spine on 03/24, Gram stain and cultures negative. Patient started on empiric vancomycin and cefepi nv with plans to complete 6 weeks of [...] Single Lumen 03/24/19 2143 Left Lateral Forearm xhif-unu-nqniiu daniel ter system 20 gauge;1 1/4 in [...] - 99 mg/dL Final Comment: Performed by [facility] [address] [place] [address] 03/28/2019 07:09 75 65 - 99 mg/dL Final Comment: Performed by [facility] [address] [place] [address] 03/27/2019 20:38 109 (H) 65 - 99 mg/dL Final Comment: Performed by [facility] [address] [place] [address] 12/09/2018 18:05 113 (H) 70 - 109 [...] this chart may have been created with Venus Concept voice recognition software. Occasi onal wrong-word or sound-alike substitutions may have occurred due to the inherent mckeon itations of voice recognition software. Please read the chart carefully and recognize, using context, where these substitutions have occurred Cordell Mcgarry LICSW - 03/28/2019 2:57 PM PDTSOCIAL WORK D/C PLAN: SNF: [place] NEXT STEPS: Await bed availability INTERVENTION: On-going dc planning. Rec'd update from [place]. They confirm they have r ec'd clinical notes and are currently reviewing. SW will follow. ASSESSMENT/CHART REVIEW:73 yr old femalewith a history of ESRD on hemodialysis, hypertens ion, type 2 diabetes, hypothyroidism,chronic anemia,hyperlipidemia, hx of stroke [facility] lesion noted on MRI concerning fo r osteomyelitis. SW met with pt's sister, Yina, and her cousin, Keri, who were waiting in pt's room while s he was in dialysis. SW will need to follow up with pt re: d/c planning. Pt's sister and co usin related that pt mostly lives at Yina's house outside [place], [place], but does not like to be tied down because she enjoys attending [employer] [place] festivals and many events. She does atten d dialysis weekly. Pt has a vehicle and is very independent. D/C TRANSPORT: tbd BARRIERS TO D/C: none CONTACTS: Yina La: sister India Tilley: sister [facility]: [phone] fax: [phone] [place] [phone] illMario Alberto north MD - 03/28/2019 7:34 AM PDTFormatting of this note might be different from the maynor lMarianela Infectious Diseases Progress Note Pt. Name/Age/: Estefani Tilley 73 y.o. 1945 Med. Record Number: [id number] Date of admission: 03/24/2019 Patient admitted with [...] signed by: Carlos Jansen, 03/28/2019 7:34 [facility] Katey Solis MD - 03/27/2019 8:58 PM PDT Patient: Estefani Tilley Date of : 1945 Admit Date: 03/24/2019 Date of Service: 03/27/2019 PCP: Francisca Womack PA-C Hospital Day: Hospital Day: 4 Hospital Course: 73-year-old female with history of ESRD on hemodialysis, hypertension, type 2 diabetes, hyp othyroidism, chronic anemia, hyperlipidemia with a history of stroke transferred from [facility] for evaluation of T11-T12 lesion noted on MRI concerning for osteomyeliti s. Infectious disease consulted. Status post aspiration from her thoracic spine, Gram stain negative, cultures pending. Rosemary ent started on empiric vancomycin and cefepime. Will need 6 weeks of IV antibiotics. Discussed with nephrology, recommend placement of Tillman catheter instead of PICC line for residential IV antibiotics. Nephrology following for maintenance hemodialysis. [...] Tillman catheter instead of PICC line for residential IV antibiotics. Pain management -trial of lidocaine [...] - Single Lumen 03/24/192142 Left Lateral Forearm xluq-uvc-cknqyg daniel ter system 20 gauge;1 09/16 in [...] - 99 mg/dL Final Comment: Performed by [place] [address] 03/27/2019 13:58 82 65 - 99 mg/dL Final Comment: Performed by [place] [address] 03/27/2019 06:39 83 65 - 99 mg/dL Final Comment: Performed by [facility] [place] [address] 12/09/2018 18:05 113 (H) 70 - 109 [...] this chart may have been created with [employer] Concept voice recognition software. Occasi onal wrong-word or sound-alike substitutions may have occurred due to the inherent mckeon itations of voice recognition software. Please read the chart carefully and recognize, using context, where these substitutions have occurred Darlin Mcgarry, [facility] - 03/27/2019 3:17 PM PDTSOCIAL WORK D/C PLAN: SNF: [place] NEXT STEPS: Await bed availability INTERVENTION: Rec'd call from Emili at [facility]. She states the contracted f acility near pt's home is [place]. Spoke with pt and with sister India. Referral and (-) Pasrr sent to [facility]. Copy of Pasrr placed in light chart with request to file into jos rds. SW will follow. ASSESSMENT/CHART REVIEW:73 yr old femalewith a history of ESRD on hemodialysis, hypertens ion, type 2 diabetes, hypothyroidism,chronic anemia,hyperlipidemia, hx of stroke [facility] lesion noted on MRI concerning fo r osteomyelitis. SW met with pt's sister, Yina, and her cousin, Keri, who were waiting in pt's room while s he was in dialysis. SW will need to follow up with pt re: d/c planning. Pt's sister and co usin related that pt mostly lives at Yina's house outside [place], [place], but does not like to be tied down because she enjoys attending [employer] [place] festivals and many events. She does atten d dialysis weekly. Pt has a vehicle and is very independent. D/C TRANSPORT: tbd BARRIERS TO D/C: none CONTACTS: Yina La: sister India Tilley: sister [facility]: [phone] fax: [phone] [place] [phone] Gregg Mcgarry [facility] - 03/27/2019 2:17 PM PDTFormatting of this note might be different from jerald more. SOCIAL WORK D/C PLAN: SNF NEXT STEPS: SW to follow up with pt regarding SNF preference INTERVENTION: On-going dc planning, chart reviewed and met with pt. Discussed need of residential IV abx, Discussed options. Provided list of [...] pt mostly lives at Yina's house outside [place], [place], but does not like to be tied down because she enjoys attending [employer] [place] festivals and many events. She does atten d dialysis weekly. Pt has a vehicle and is very independent. ASSESSMENT/CHART REVIEW:73 yr old femalewith a history of ESRD on hemodialysis, hypertens ion, type 2 diabetes, hypothyroidism,chronic anemia,hyperlipidemia, hx of stroke [facility] T11-T12 lesion noted on MRI concerning fo r osteomyelitis. D/C TRANSPORT: tbd BARRIERS TO D/C: none CONTACTS: Yina La Sister [phone] India Tilley Sister [phone] Irish Cadet, Food Server - 03/27/2019 1:33 PM PDTFormatting of this [...] Protocol Electronically signed by: Aimee Carroll, Food Server 03/27/2019 13:33Electronically si gned by Ray Joel, PharmD at 03/27/2019 2:04 PM PDT Associated attestation - Ray Joel PharmD - 03/27/2019 2:04 PM PDTI reviewed and agr ee with the assessment and plan. Ray Joel, PharmD 03/27/2019 14:04 Corrigan, Randy Nunez MD - 03/27/2019 10:52 AM PDT [facility] INPATIENT ROUNDING NOTE Date of Service: 03/27/2019 Rounding Physician: Randy Corrigan MD Patient Name: Estefani Tilley : 1945 Medical Record: [id number] Hospital Summary: Estefani Tilley is a 73 y.o. female with a PMHx of ESRD, HTN, Dm type 2, hypothyroidism, HLd, CVA who is under the care of Dr Muñoz at [facility] who dialyzes MWF admitted with [...] Tilley 73 y.o. 1945 Med. Record Number: [id number] Date of admission: 03/24/2019 Patient admitted with [...] signed by: Carlos Jansen, 03/27/2019 7:10 [facility] Katey Solis MD - 03/26/2019 5:40 PM PDT Patient: Estefani Tilley Date of : 1945 Admit Date: 03/24/2019 Date of Service: 03/26/2019 PCP: Francisca Womack PA-C Hospital Day: Hospital Day: 3 Hospital Course: 73-year-old female with history of ESRD on hemodialysis, hypertension, type 2 diabetes, hyp othyroidism, chronic anemia, hyperlipidemia with a history of stroke transferred from [facility] [place] for evaluation of T11-T12 lesion noted on [...] Single Lumen 03/24/19 2143 Left Lateral Forearm zxbn-wxr-rosdev daniel ter system 20 gauge;1 1/4 in [...] - 99 mg/dL Final Comment: Performed by [address] [facility] [place] [address] 03/26/2019 06:49 116 (H) 65 - 99 mg/dL Final Comment: Performed by [address] [facility] [place] [address] 03/25/2019 20:37 110 (H) 65 - 99 mg/dL Final Comment: Performed by [address] [place] [address] 12/09/2018 18:05 113 (H) 70 - 109 [...] this chart may have been created with [employer] voice recognition software. Occasi onal wrong-word or sound-alike substitutions may have occurred due to the inherent mckeon itations of voice recognition software. Please read the chart carefully and recognize, using context, where these substitutions have occurred Jose Gamez, [facility] - 03/26/2019 10:52 AM PDTFormatting of this note might be different from the [facility] Pharmacy Progress Note VANCOMYCIN PER PHARMACY PROTOCOL: [...] Vancomycin Protocol Electronically signed by: Jose Menard Food Server 03/26/2019 10:52 su, Randy Nunez MD - 03/26/2019 1 0:38 AM PDT [facility] INPATIENT ROUNDING NOTE Date of Service: 03/26/2019 Rounding Physician: Randy Corrigan MD Patient Name: Estefani Tilley : 1945 Medical Record: [id number] Hospital Summary: Estefani Tilley is a 73 y.o. female with a PMHx of ESRD, HTN, Dm type 2, hypothyroidism, HLd, CVA who is under the care of Dr Muñoz at [facility] who dialyzes MWF admitted with possible osteo disccitis t11/t12 ASSESSMENT AND PLAN 1. ESRD/HD dependent Access is LUE AVF working well No indications for HD today Usually dialyzes MWF at [facility] Hd tommorow 2. Anemia Hg [...] Tilley 73 y.o. 1945 Med. Record Number: [id number] Date of admission: 03/24/2019 Patient admitted with [...] signed by: Carlos Jansen, 03/26/2019 8:03 [facility] Katey Solis MD - 03/25/2019 3:50 PM PDT Patient: Estefani Tilley Date of : 1945 Admit Date: 03/24/2019 Date of Service: 03/25/2019 PCP: Francisca Womack PA-C Hospital Day: Hospital Day: 2 Hospital Course: 73-year-old female with history of ESRD on hemodialysis, hypertension, type 2 diabetes, hyp othyroidism, chronic anemia, hyperlipidemia with a history of stroke transferred from [facility] [place] for evaluation of T11-T12 lesion noted on [...] Single Lumen 03/24/19 2143 Left Lateral Forearm suhc-zgm-fhacxs daniel ter system 20 gauge;1 1/4 in [...] - 99 mg/dL Final Comment: Performed by [facility] [address] [place] [address] 03/25/2019 06:52 107 (H) 65 - 99 mg/dL Final Comment: Performed by [facility] [address] [place] [address] 03/24/2019 20:11 112 (H) 65 - 99 mg/dL Final Comment: Performed by [facility] [address] [place] [address] 12/09/2018 18:05 113 (H) 70 - 109 [...] this chart may have been created with [employer] voice recognition software. Occasi onal wrong-word or sound-alike substitutions may have occurred due to the inherent mckeon itations of voice recognition software. Please read the chart carefully and recognize, using context, where these substitutions have occurred su, Randy Nunez MD - 0 03/25/2019 1:47 PM PDT [facility] INPATIENT ROUNDING NOTE Date of Service: 03/25/2019 Rounding Physician: Randy Corrigan MD Patient Name: Estefani Tilley : 1945 Medical Record: [id number] Hospital Summary: Estefani Tilley is a 73 y.o. female with a PMHx of ESRD, HTN, Dm type 2, hypothyroidism, HLd, CVA who is under the care of Dr Muñoz at [facility] who dialyzes MWF admitted with possible osteo disccitis t11/t12 ASSESSMENT AND PLAN 1. ESRD/HD dependent Access is LUE AVF working well No indications for HD today Usually dialyzes MWF at [facility] She is below her EDW [...] Corrigan MD, 03/25/2019, 13:47 ettler, Nan Jimenez, GANG BOSS - 03/25/2019 10:49 AM PDT SOCIAL WORK [...] pt mostly lives at Yina's house outside [facility] [place], [place], but does not like to be tied down because she enjoys attending [employer] [place] festivals and many events. She does atten d dialysis weekly. Pt has a vehicle and is very independent. ASSESSMENT/CHART REVIEW:73 yr old femalewith a history of ESRD on hemodialysis, hypertens ion, type 2 diabetes, hypothyroidism,chronic anemia,hyperlipidemia, hx of stroke [facility] noted on MRI concerning fo r osteomyelitis. D/C TRANSPORT: tbd BARRIERS TO D/C: none CONTACTS: Yina La Sister [phone] India Tilley Sister [phone] illCarlos north M D - 03/25/2019 8:34 AM PDT Infectious Diseases Progress Note Pt. Name/Age/: Estefani Jimenez Jarek 73 y.o. 1945 Med. Record Number: [id number] Date of admission: 03/24/2019 Patient admitted with [...] signed by: Carlos Jansen, 03/25/2019 8:34 [facility] Jose Gamez, Food Server - 03/24/2019 10:46 PM PDTFormatting of this note might be different from the [facility]. Pharmacy Progress Note VANCOMYCIN PER PHARMACY PROTOCOL: [...] Protocol Electronically signed by: Jose Menard, Food Server 03/24/2019 22:46 onrad, Gladys Roman, GANG BOSS - 9 4:53 PM PDT SOCIAL WORK [...] pt mostly lives at Yina's house outside [place], [place], but do es not like to be tied down because she enjoys attending [employer] [place] festivals and many events. She does attend dialysis weekly. Pt has a vehicle and is very independent. ASSESSMENT/CHART REVIEW:73 yr old female with a history of ESRD on hemodialysis, hypertensi on, type 2 diabetes, hypothyroidism, chronic anemia, hyperlipidemia, hx of stroke transferre d from [facility] for evaluation of T11-T12 lesion noted on MRI concerning for ost eomyelitis. D/C TRANSPORT: tbd BARRIERS TO D/C: none CONTACTS: Yina La Sister [phone] India Tilley Sister [phone] Katey Solis MD - 03/24/2019 3:53 PM PDTPatient seen and examined. Chart reviewed. Briefly, 73-year-old female with history of ESRD on hemodialysis, hypertension, type 2 diab etes, hypothyroidism, chronic anemia, hyperlipidemia with a history of stroke transferred fr [facility] [place] for evaluation of T11-T12 lesion noted on [...] not have any p raza, consider antidepressants. 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 2. [employer] Trough: 15-20 mcg/ml [...] Procedure Component Value Units Date/Time Culture, Blood [[id number]] Collected: 03/23/192332 Order Status: Sent Lab Status: In process Updated: 03/23/192348 Specimen: Blood Culture, Blood [[id number]] Collected: 03/23/192254 Order Status: Sent Lab Status: [...] anemia, hyperlipidemia, hx of stroke transferred from [facility] for evaluation of T11-T12 [...] M, w and F HD sessions in [place], [place] Last HD session Wednesday Will call [...] stroke on aspirin , pt lives in [place], [place]. She presented to [facility] yesterday complaining of 6 [...] the spine for further evaluation. Answered to [place] for IR procedure. Patient reports that she [...] W/CANNULATED SCREWS; Surgeon: Scott Koroma MD; Location: [facility] MAIN OR HYSTERECTOMY MASTECTOMY 2006 left ear NOSE SURGERY 2009 REMOVAL TUNNELED CATHETER Right 04/04/[address] Stephenson SHUNT PLACEMENT/INSERTION N/A 11/08/2017 Procedure: Tunneled Hemodialysis Catheter Placement; Surgeon: Nora Leo MD; Location : [facility] MAIN OR SHUNT PLACEMENT/INSERTION Right 02/04/2018 Procedure: INSERTION SHUNT HEMODIALYSIS W/ PERMACATH; Surgeon: Heather Navarro MD; L ocation: [facility] MAIN OR VEIN SURGERY Right 01/04/2018 Procedure: Right Transposed Basilic Vein to Proximal Radial Artery; Surgeon: Santos Stephenson MD, FACS; Location: [facility] MAIN OR Social History Socioeconomic History [...] on file COMMENTS- Never smoker, lives in [place], [place]. Reports living in her car most [...] or hilar lymphadenopathy. LUNGS:There is a smal w-nm-lyxcelxn layering left pleural effusion. There is atelectasis [...] this chart may have been created with [employer] voice recognition software. Occasi onal wrong-word or [...] CorriganRandy MD - 03/24/2019 9:31 AM PDT [facility] Nephrology Consultation Patient Name: Estefani Tilley : 1945 Medical Record: [id number] DATE OF SERVICE: 03/24/2019 CONSULTING PHYSICIAN: Trace Nunez MD REFERRING PHYSICIAN: Dr Erlinda Simental REASON FOR CONSULTATION: ESRD HD management HISTORY OF PRESENT ILLNESS Estefani Tilley is a 73 y.o. female who has a history of ESRD, HTN, Dm type 2, hypothyroi dism, HLd, CVA who is under the care of Dr Muñoz at [facility] who dialyzes MWF. Her usually [...] Date Anemia Arthritis Back pain Breast cancer ([facility]) s/p left mastectomy in 2004, s/p chemotherapy Cancer (HCC) Diabetes ([facility]) Heart disease Hemodialysis patient ([facility]) wed-wed-wed History of blood clots Hypercholesteremia Hypertension Hypothyroidism Renal failure Seasonal allergies Stroke (cerebrum) ([facility]) CURRENT MEDICATIONS Scheduled Meds: aspirin 81 [...] effort i s made to edit content, hospital coordinator errors may occur. If there are any [...] her local facility and then transferred to [facility] in [place] . CT scan was suggestive of T11-T12 [...] W/CANNULATED SCREWS; Surgeon: Scott Koroma MD; Location: [facility] MAIN OR HYSTERECTOMY MASTECTOMY 2006 left ear NOSE SURGERY 2009 REMOVAL TUNNELED CATHETER Right 04/04/[address] Stephenson SHUNT PLACEMENT/INSERTION N/A 11/08/2017 Procedure: Tunneled Hemodialysis Catheter Placement; Surgeon: Nora Leo MD; Location : [facility] MAIN OR SHUNT PLACEMENT/INSERTION Right 02/04/2018 Procedure: INSERTION SHUNT HEMODIALYSIS W/ PERMACATH; Surgeon: Heather Navarro MD; L ocation: [facility] MAIN OR VEIN SURGERY Right 01/04/2018 Procedure: Right Transposed Basilic Vein to Proximal Radial Artery; Surgeon: Santos Stephenson MD, FACS; Location: [facility] MAIN OR Patient Active Problem List [...] or hilar lymphadenopathy. LUNGS:There is a smal a-wb-futwltha layering left pleural effusion. There is atelectasis [...] en counter Miscellaneous Notes Plan of Tiffany Gastno RD - 03/31/2019 4:08 PM PDT Clinical Nutrition: Intake Analysis Recommendations to Care Team: 1. Consider appetite stimulate Assessment: Today's review of meals: Breakfast and Lunch: 117calories and 13 g protein. ESTIMATED NEEDS: Weight Used For Calculations: 63.6 kg (140 lb 3.4 oz) Energy Calorie Requirements: 0107-9993(REE x 1.2-1.4) Range Gm Protein (gm): 55-85 [...] nd stooling patterns Tiffanycharlie Rosarioalfred, , RD [phone] DATE/TIME: 03/31/2019 16:12 lan of Genevieve Gama RN - 03/31/2019 2:57 PM PDTShift Summary: Pt off the floor most of the day for HD. REY fistula, R IJ CVC, flushing w/o difficulty. A& O, up with 1 assist. Pt to d/c home to [place] this afternoon after 7Road teach es family about IV abx administration. Receives oxycodone 5-10mg for chronic back pain. Campbell es N/V/D. VSS. ACHS CS WNL. lan of Calli Delgado, Glass Production Machine Operator-Clinical - 03/31/2019 1:36 PM PDTFormattin g of this note might be different from the original. ART PREPARATOR MENU ASSISTANCE FOLLOW-UP NOTE INTERVENTIONS: 1. Continue [...] Lima Tech-Clinical 03/31/2019 13:37 NF Transfer - [facility], Michelle Taylor DO - 03/31/2019 10:26 AM PDT GROUP HOME FACILITY TRANSFER ORDERS Patient Name: Estefani Tilley Patient : 1945 Gender: female Date of Admission: 03/24/2019 Date of Discharge: 03/31/2019 Admitting Provider: Erlinda Simon MD Discharging Provider: Michelle Lopez DO Consultants: Nephrology, ID PCP: [facility] SN[facility] transferring to: [place] Provider after transfer: Facility Provider CODE STATUS: [x] Attempt CPR [] Do not resuscitate If patient is pulseless and not breathing, RN/WORKERS COMPENSATION ATTORNEY may pronounce . Advanced Directives included: [] [...] INFLUENZA QUADR W/PRES (PED/ADOL/ADULT) MULTIDOSE 06/27/2014 INFLUENZA, P9G4-11, UNSPECIFIED 08/28/2009 INFLUENZA, UNSPECIFIED FORMULATION 06/20/2013 PNEUMOCOCCAL CONJUGATE 13-VALENT (PCV13) 02/12/2016 PNEUMOCOCCAL POLYSACCHARIDE 23-VALENT (PPSV23) 07/30/2011 TD PF (2 LF TETANUS) (ADOL/ADULT) 06/22/2002 TDAP, (ADOL/ADULT) 06/17/2010, 06/17/2010 ZOSTER, 1 DOSE (ZOSTAVAX) 01/28/2012 Diet: [] As tolerated ELECTROTYPE FINISHER may upgrade or downgrade diet as condition Indicates. [] RN may downgrade diet as indicated. Type: [x] Continue current diet of: Diet and Supplements Diet Diet general; Effective Now Number of Occurrences: Until Specified Order Questions: Type Diet general [] Other: Consistency/Precautions: [] Whole [] Thin Liquids [] Cut-up [] [place] Thick [] Advanced Chopped [] Honey Thickened [] Chopped [] Advanced Ground [] 1:1 feedings [] Ground/Pureed [] Other: Tube Feedings: [] PEG [] GT [] JT [] NGT [] Formula type: (Audioprosthologist may change/substitute if indicated). [] Continuous Rate: [...] [] OT Evaluation & Management for: [] ELECTROTYPE FINISHER Evaluation &Management for: [] Other: Wound/Skin Care: [...] Michelle ESCALANTE, DO, certify that post hospital group home care is medically neces shar on a continuing basis for any of the conditions for which he/she received care during t his hospitalization. Check one: [x] Skilled [] Intermediate Additional Orders/Instructions: Physician's signature: 03/31/2019 10:26 [facility] NURSING FACILITY USE ONLY: [] Admitting orders [...] wishful of Monitoring Requirements [facility] Suicide Policy [facility] Suicide [...] POCGLU 112 (H) 12/08/2018 0650 lan of Ryana Flores RN - 03/30/2019 10:37 PM PDTOsteomyelitis, 6 weeks ABX DC to SNF vs HH R arm fistula, HD tomorrow, tunneled cath General diet AO IND [id number] signed by Rayna Ochoa RN at 03/30/2019 [...] wishful of Monitoring Requirements [facility] Suicide Policy [facility] Suicide [...] of meals x 6 days. Will send [facility] Renal [facility] h meals. Nutrition History Obtained? No Nutrition [...] (based on estimated dry wt: 65.50 kg) [place] Body Weight: 63.64 kg Usual Body Weight: See [facility] weight hx; Weight History Per [facility] Records: 11/01/17: 87.20 k 04/04/18: 76.20 kg [...] nd stooling patterns Tiffany Javier , RD [phone] DATE/TIME: 03/30/2019 10:22 lan of Care - [...] wishful of Monitoring Requirements [facility] Suicide Policy [facility] Suicide [...] lan of Care - B Luz dent, Glass Production Machine Operator-Clinical - 03/29/2019 4:33 PM PDTFormatting of this note m ight be different from the original. Banquet Supervisor Clinical Nutrition Follow-up Note Nutrition Interventions: [...] today. Rt chest tunneled picc line for residential antibiotic therapy. Antibioti cs due after dialysis today. Electronically signed by: Maribell Ji RN 03/29/2019 13:07 lan of Huan Cai RN - 03/29/2019 4:14 AM PDT Nursing Handoff Note Room# 501/501-02 Isolation:None Code Status: Full Code Item for heat treat supervisor Comments Shift Summary: Hx Breast CA, ESRD, [...] found. lan of Melanie - Luz Farris, Glass Production Machine Operator-Clinical - 03/28/2019 4:44 PM PDT ART PREPARATOR CLINICAL NUTRITION NOTE NUTRITION PROBLEMS: 1. Inadequate [...] 3:05 PM PDT Melvin [place] OPERATIVE NOTE [facility] Pt. Name/Age/: Estefani Tilley 73 y.o. 1945 Med. Record Number: [id number] Date of admission: 03/24/2019 Date of Operation/Procedure: 03/28/2019 Preoperative Diagnosis: need for iv access Postoperative Diagnosis: Same Surgeon: Juan Choi MD, PGY-4 Director Of Food And Nutrition: None Anesthesia Provider(s): No anesthesia staff entered. [...] 03/28/2019, 15:05 edation Documentation - Sudhir Brandon Shoe Cleaner - 03/28/2019 2:58 PM PDTTunnelled Power Line [...] Room # 836/836-01 ISO: None Item for heat treat supervisor Comments Shift Summary: Include Pain RX BP [...] Management: PVR/Strcath/incont Stool Occurrence: 1(pt reported) (03/27/19 6046) La st Bowel Movement: 03/21/19(Patient estimatied date) (03/27/19 419) Restraints TeleSitter or Bedside Sitter Discharge plan Patient/Family Goals [place]. C-SSRS Since you were last asked, have [...] wishful of Monitoring Requirements [facility] Suicide Policy [facility] Suicide [...] Room # 836/836-01 ISO: None Item for heat treat supervisor Comments Shift Summary: Include Pain RX BP within ordered parameters? Stroke pt?:Depression screen Day 2 Took over patient care from 4483-1578. BP peaked and PRN was administered with [...] wishful of Monitoring Requirements [facility] Suicide Policy [facility] Suicide [...] Room # 836/836-01 ISO: None Item for heat treat supervisor Comments Shift Summary: Include Pain RX BP within ordered parameters? Stroke pt?:Depression screen Day 2 Patient here for possible osteomyelitis of T11-T12. A/O X4. Cooperative with care today. Had dialysis from 2703-3051. AM medications held and given when pt [...] wishful of Monitoring Requirements [facility] Suicide Policy [facility] Suicide [...] based on suicide observation protocols. lan of [facility] margarita, AMILCAR Em - 03/27/2019 2:13 PM PDTSW: [place]: lives out of town Plan: SNF la n of [facility], Radha Casper RN - 03/27/2019 1:17 AM PDT 8N & 8S Nursing Progress Note Patient Name: Estefani Tilley Room # 836/836-01 ISO: None Item for heat treat supervisor Comments Shift Summary: Include Pain RX BP [...] wishful of Monitoring Requirements [facility] Suicide Policy [facility] Suicide [...] 6:41 PM PDTAssumed care of pt from 2896-3955. Pt here wi th thoracic discitis, possible [...] Room # 836/836-01 ISO: None Item for heat treat supervisor Comments Shift Summary: Include Pain RX BP within ordered parameters? Stroke pt?:Depression screen Day 2 Assumed care from 7700-4448. 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 [...] wishful of Monitoring Requirements [facility] Suicide Policy [facility] Suicide [...] Room # 836/836-01 ISO: None Item for heat treat supervisor Comments Shift Summary: Include Pain RX BP [...] to do assessment. Refused labs from the assistant laboratory director until this nurse came and educated patient [...] wishful of Monitoring Requirements [facility] Suicide Policy [facility] Suicide [...] Room # 836/836-01 ISO: None Item for heat treat supervisor Comments Shift Summary: Include Pain RX BP [...] wishful of Monitoring Requirements [facility] Suicide Policy [facility] Suicide [...] Room # 836/836-01 ISO: None Item for heat treat supervisor Comments Shift Summary: Include Pain RX BP [...] n't alive. Monitoring Requirements [facility] Suicide Policy [facility] Suicide [...] based on suicide observation protocols. lan of [facility] - Dalia Roman RN - 03/24/2019 4:24 PM PDT 8N & 8S Nursing Progress Note Patient Name: Estefani Tilley Room # 836/836-01 ISO: None Item for heat treat supervisor Comments Shift Summary: Include Pain RX BP [...] Goals C-SSRS Monitoring Requirements [facility] Suicide Policy [facility] Suicide [...] Planning: Received a telephone call from Emili [facility] RN @ [facility] [phone]. Informed Emili that this patient was transferred to [facility]. Electronically signed by: Michelle Jackson 03/24/2019 8:45 lan of Ginger Poe RN - 03/24/2019 5:28 AM PDTFormatting of this note might be different from the o riginal. 8N & 8S Nursing Progress Note Patient Name: Estefani Tilley Room # 836/836-01 ISO: None Item for heat treat supervisor Comments Shift Summary: Include Pain RX BP within ordered parameters? Stroke pt?:Depression screen Day 2 Pt admitted from hospital in [place] via [facility] at 0100. S/p c/o severe [...] Pending C-SSRS Monitoring Requirements [facility] Suicide Policy [facility] Suicide [...] | [facility] | | | POC | [facility] [address], | | [place]CRED | | | | [place] [address] | | HEART | | | |Performed by [facility] [address], [place] [address] | | MEDICAL | | | | [...] + + | [facility] | [address] [place] | [place] [address] | | | [facility] | [...] | [facility] | | | POC | [facility] [address], | | [place]CR[place] | | | | [place] [address] | | HEART | | | |Performed by [facility] [address], [place] [address] | | MEDICAL | | | | [...] + + | [facility] | [address] | [place] [address] | | | [facility] | | | | | [...] | | LABORATORY | | | | [facility] [address], | | [place] | | | | [place] [address] | | | | + + + + + + + + | Specimen | + + | Blood specimen | | (specimen) | + + + + + + + | Performing | Address | City/State/Zipcode | Phone Number | | Organization | | | | + + + + + | [facility] | [address] | [place] [address] | | | [facility] | | | | | [...] ENCE | | | Immature | by [facility] [address] [place], | [place] | [place] | | | Granulocyte | [place] [address] | | HEART | | | s |Performed by [facility] [address], [place] [address] | | MEDICA L | | | [...] + + | [facility] | [address] | [place] [address] | | | [facility] | | | | [...] by | | | | | | [facility] [address], | | | | | | [place] [address] | | | | + + + + + + + + | Specimen | + + | Blood specimen | | (specimen) | + + + + + + + | Performing | Address | City/State/Zipcode | Phone Number | | Organization | | | | + + + + + | JIMJOSE ADora LIZ | [address] | [place] [address] | | | [facility] | | | | | [...] | | | POC | Performed by [facility] [address] | | SACRED | | | | [address] [place] | | HEART | | | | [address] | | MEDICAL | | | | [...] + + | BETH LIZ | [address] | [place] [address] | | | [facility] | | | | | [...] | | | POC | Performed by [facility] [address] | | SACRED | | | | [address], [place] | | HEART | | | | [address] | | MEDICAL | | | | [...] + | BETH LIZ | [address] | [place] [address] | | | [facility] | | | | | [...] | | | POC | Performed by [facility] [address] | | SACRED | | | | [address] [place] | | HEART | | | | [address] | | MEDICAL | | | | [...] + | BETH LIZ | [address] | [place] [address] | | | [facility] | | | | | [...] | | | POC | Performed by [facility] [address] | | SACRED | | | | [address] [place], [place] | | HEART | | | | [address] | | MEDICAL | | | | [...] + | BETH LIZ | [address] | [place] [address] | | | [facility] | | | | | [...] PROVIDE NCE | | | | by [place] [address], | | SACRED | | | | [place] [address] | | HEART | | | |Performed by [place] [address], [place] [address] | | MEDICAL | | | | [...] + + | BETH LIZ | [address] | [place] [address] | | | [facility] | | | | | [...] LUIS CE | | | | by [facility] [address], | | SACRED | | | | [place] [address] | | HEART | | | |Performed by [facility] [address], [place] [address] | | MEDICAL | | | | [...] + + | [facility] | [address] | [place] [address] | | | [facility] | | | | | [...] | | LABORATORY | | | | [facility] [address], | | CERNER | | | | [place] [address] | | | | + + + + + + + + | Specimen | + + | Blood specimen | | (specimen) | + + + + + + + | Performing | Address | City/State/Zipcode | Phone Number | | Organization | | | | + + + + + | BETH LIZ | [address] | [place] [address] | | | [facility] | | | | | [...] ENCE | | | Counted | by [place] [address], | | SACRED | | | | [place] [address] | | HEART | | | |Performed by [facility] [address], [place] [address] | | MEDICA L | | | [...] [address] | [place] [address] | | | [facility] | | | | | [...] | | | POC | Performed by [facility] [address] | | SACRED | | | | [address], [place] | | HEART | | | | [address] | | MEDICAL | | | | [...] + | BETH LIZ | [address] | [place] [address] | | | [facility] | | | | | [...] | PROVID[facility] | | | POC | [facility] [address], | | SACRED | | | | [place] [address] | | HEART | | | |Performed by [facility] [address], [place] [address] | | MEDICAL | | | | [...] | JIMJOSE ADora LIZ | [address] | [place] [address] | | | [facility] | | | | | [...] | | | POC | Performed by [facility] [address] | | SACRED | | | | [address], [place] | | HEART | | | | [address] | | MEDICAL | | | | [...] | [address] | [place] [address] | | | [facility] | [...] | [facility] | | | POC | [facility] [address], | | SACRED | | | | [place] [address] | | HEART | | | |Performed by [facility] [address], [place] [address] | | MEDICAL | | | | [...] + | BETH LIZ | [address] | [place] [address] | | | [facility] | | | | | [...] by | | | | | | [facility] [address] [place], | | | | | | [place] [address] | | | | + + + + + + + + | Specimen | + + | Blood specimen | | (specimen) | + + + + + + + | Performing | Address | City/State/Zipcode | Phone Number | | Organization | | | | + + + + + | BETH LIZ | [address] | [place] [address] | | | [facility] | | | | | [...] ENCE | | | Counted | by [facility] [address], | | SACRED | | | | [place] [address] | | HEART | | | |Performed by [facility] [address], [place] [address] | | MEDICA L | | | [...] + + | BETH LIZ | [address] | [place] [address] | | | [facility] | | | | | [...] LUIS CE | | | | by [facility] [address], | | SACRED | | | | [place] [address] | | HEART | | | |Performed by [facility] [address], [place] | | MEDICAL | | | [...] + + | BETH SACREVANS | [address] | [place] | | | [facility] [...] | | LABORATORY | | | | [facility] [address], | | CERNER | | | | [place] [address] | | | | + + + + + + + + | Specimen | + + | Blood specimen | | (specimen) | + + + + + + + | Performing | Address | City/State/Zipcode | Phone Number | | Organization | | | | + + + + + | PROVIDE[facility] AE SACR[facility] | [address] | [place] [address] | | | [facility] | | | | | [...] | | | POC | Performed by [facility] [address] | | SACRED | | | | [address], [place] | | HEART | | | | [address] | | MEDICAL | | | | [...] + | BETH LIZ | [address] | [place] [address] | | | [facility] | | | | [...] | | | POC | Performed by [facility] [address] | | DENVERED | | | | [address] [place] | | HEART | | | | [address] | | MEDICAL | | | | [...] | [address] | [place] | | | [facility] | | | | | [...] | RIMAE | | | POC | [facility] [address], | | SACRED | | | | [place] | | HEART | | | |Performed by [facility] [address], [place], [place] | | MEDICAL | | | [...] BETH LIZ | [address] | [place] [address] | | | [facility] | | | | | [...] | | LABORATORY | | | | [facility] [address], | | CERNER | | | | [place] [address] | | | | + + + + + + + + | Specimen | + + | Blood specimen | | (specimen) | + + + + + + + | Performing | Address | City/State/Zipcode | Phone Number | | Organization | | | | + + + + + | BETH SACRED | [address] | [place] [address] | | | [facility] | | | | | [...] PROVID ENCE | | | | by [facility] [address], | | SACRED | | | | [place] [address] | | HEART | | | |Performed by [facility] [address], [place] [address] | | MEDICA L | | | [...] | [address] | [place] [address] | | | [facility] | | | | | [...] | | | POC | Performed by [facility] [address] | | SACRED | | | | [address], [place] | | HEART | | | | [address] | | MEDICAL | | | | [...] + | BETH LIZ | [address] | [place] [address] | | | [facility] | | | | [...] | | | POC | Performed by [facility] [address] | | SACRED | | | | [address] [place] | | HEART | | | | [address] | | MEDICAL | | | | [...] + + | BETH LIZ | [address] | [place] [address] | | | [facility] | | | | | [...] | PROVIDENCE | | | POC | [facility] [address], | | SACRED | | | | [place] | | HEART | | | |Performed by [facility] [address], [place], [place] | | MEDICAL | | | [...] + + | [facility] | [address] | [place] | | | [facility] [...] | PROVIDENCE | | | POC | [facility] [address], | | SACRED | | | | [place] [address] | | HEART | | | |Performed by [facility] [address], [place] [address] | | MEDICAL | | | | [...] + | BETH LIZ | [address] | [place] [address] | | | [facility] | | | | | [...] by | | | | | | [facility] [address] [place], | | | | | | [place] [address] | | | | + + + + + + + + | Specimen | + + | Blood specimen | | (specimen) | + + + + + + + | Performing | Address | City/State/Zipcode | Phone Number | | Organization | | | | + + + + + | BETH LIZ | [address] | [place] [address] | | | [facility] | | | | | [place] | | | | + + [...] | | | POC | Performed by [facility] [address] | | SACRED | | | | [address], [place] | | HEART | | | | [address] | | MEDICAL | | | | [...] [address] | [place] [address] | | | [facility]ENTER | [...] | | | POC | Performed by [facility] [address] | | SACRED | | | | [address] [place] | | HEART | | | | [address] | | MEDICAL | | | | [...] + | BETH LIZ | [address] | [place] [address] | | | [facility] | | | | | [...] | | | POC | Performed by [facility] [address] | | SACRED | | | | [address], [place] | | HEART | | | | [address] | | MEDICAL | | | | [...] SACREVANS | [address] | [place] [address] | | | [facility] | [...] PROVIDENCE | | | | Performed by [facility] [address] | | SACRED | | | | [address] [place] | | HEART | | | | [address] | | MEDICAL | | | | [...] + | BETH LIZ | [address] | [place] [address] | | | [facility] | | | | | [...] | | | POC | Performed by [facility] [address] | | SACRED | | | | [address], [place] | | HEART | | | | [address] | | MEDICAL | | | | [...] SACRED | [address] | [place] [address] | | | [facility] | | | | [...] by | | | | | | [facility] [address], | | | | | | [place] [address] | | | | + + + + + + + + | Specimen | + + | Blood specimen | | (specimen) | + + + + + + + | Performing | Address | City/State/Zipcode | Phone Number | | Organization | | | | + + + + + | JIMJOSE ADora LIZ | [address] | [place] [address] | | | [facility] | | | | | [...] | | LABORATORY | | | | [facility] [address], | | JESI | | | | [place] [address] | | | | + + + + + + + + | Specimen | + + | Blood specimen | | (specimen) | + + + + + + + | Performing | Address | City/State/Zipcode | Phone Number | | Organization | | | | + + + + + | BETH SACREVANS | [address] | [place] [address] | | | [facility] | | | | | [...] PROVID ENCE | | | | by [facility] [address], | | SACRED | | | | [place] | | HEART | | | |Performed by [facility] [address], [place] | | MEDICA L | | [...] SACRED | [address] | [place], [place] | | | HEART [facility] | | | | | LABORATORY [...] CE | | | B-12 | by [facility] [address], | | SACRED | | | | [place] [address] | | HEART | | | |Performed by [facility] [address], [place] [address] | | MEDICAL | | | | [...] SACRED | [address] | [place] [address] | | | [facility] | | | | | [...] by | | | | | | [facility] [address], | | | | | | [place] [address] | | | | + + + + + + + + | Specimen | + + | Blood specimen | | (specimen) | + + + + + + + | Performing | Address | City/State/Zipcode | Phone Number | | Organization | | | | + + + + + | BETH LIZ | [address] | [place] [address] | | | [facility] | | | | | [...] | | | POC | Performed by [facility] [address] | | SACRED | | | | [address] [place], [place] | | HEART | | | | [address] | | MEDICAL | | | | [...] [address] | [place] [address] | | | [facility] | | | | | [...] | | | POC | Performed by [facility] [address] | | SACRED | | | | [address], [place] | | HEART | | | | [address] | | MEDICAL | | | | [...] [address] | [place] [address] | | | [facility] | [...] | | | POC | Performed by [facility] [address] | | SACRED | | | | [address] [place], [place] | | HEART | | | | [address] | | MEDICAL | | | | [...] + | BETH LIZ | [address] | [place] [address] | | | [facility] | | | | | [...] PROVID ENCE | | | | by [facility] [address], | | SACRED | | | | [place] [address] | | HEART | | | |Performed by [facility] [address], [place] [address] | | MEDICA L | | | [...] + | BETH LIZ | [address] | [place] [address] | | | [facility] | | | | | [...] LUIS CE | | | | by [facility] [address], | | SACRED | | | | [place] [address] | | HEART | | | |Performed by [facility] [address], [place] [address] | | MEDICAL | | | | [...] + | [facility] | [address] | [place] [address] | | | [facility] | | | | | [...] | 15 (L)Comment: eGFR<60 | >=90 | [facility] | | | GFR | consistent with impaired | mL/min/1.73m2 | SACRED | | | | kidney function.For | | HEART | | | | Americans, | | MEDICAL | | | | multiply the calculated | | CENTER | | | | GFR by 1.210Performed by | | LABORATORY | | | | [facility] [address], | | [place] | | | | [place] [address] | | | | + + + + + + + + | Specimen | + + | Blood specimen | | (specimen) | + + + + + + + | Performing | Address | City/State/Zipcode | Phone Number | | Organization | | | | + + + + + | BETH LIZ | [address] | [place] [address] | | | [facility] | | | | | [...] | | | POC | Performed by [facility] [address] | | SACRED | | | | [address] [place] | | HEART | | | | [address] | | MEDICAL | | | | [...] | JIMJOSE ADora LIZ | [address] | [place] [address] | | | [facility] | | | | | [...] | | | POC | Performed by [facility] [address] | | SACRED | | | | [address] [place] | | HEART | | | | [address] | | MEDICAL | | | | [...] SACRED | [address] | [place] [address] | | | [facility] | | | | | [...] | SACRED | | | Total | [id number] | | HEART | | | | [address] [place], [place] | | MEDICAL | | | | [phone] Daniel | | CENTER | | | | Lauro HOLDEN Ph:[phone] | | LABORATORY | | | | [...] + | BETH LIZ | [address] | [place] [address] | | | [facility] | | | | | [...] | SACRED | | | | by [facility] [address], | | HEART | | | | [place] [address] | | MEDICAL | | | | [...] + | BETH LIZ | [address] | [place] [address] | | | [facility] | | | | | [...] | SACRED | | | | by [facility] [address], | | HEART | | | | [place] [address] | | MEDICAL | | | | [...] + + | [facility] | [address] | [place] [address] | | | [facility] | | | | | [...] | MEDICAL | | | | by [place] [address], | | CENTER | | | | [place] [address] | | LABORATORY | | | |Performed by [facility] [address], [place] [address] | | CERNER | | | | [...] [address] | [place] [address] | | | [facility] | | | | | [...] | | | POC | Performed by [facility] [address] | | SACRED | | | | [address], [place] | | HEART | | | | [address] | | MEDICAL | | | | [...] + | BETH LIZ | [address] | [place] [address] | | | [facility] | | | | | [...] | | | POC | Performed by [facility] [address] | | SACRED | | | | [address] [place] | | HEART | | | | [address] | | MEDICAL | | | | [...] + + | [facility] | [address] | [place] [address] | | | [facility] | | | | | [...] CENTER | | | | 3.5Performed by [facility] [address] | | LABORATORY | | | | [address] [place] [address] | | [place] | | | | [address] | | | | + + + + + + + + | Specimen | + + | Blood specimen | | (specimen) | + + + + + + + | Performing | Address | City/State/Zipcode | Phone Number | | Organization | | | | + + + + + | [facility] | [address] | [place] [address] | | | [facility] | [...] | | | Immature | Performed by [facility] [address] | K/uL | SACRED | | | Granulocyte | [place] | | HEART | | | s | [id number] | | MEDICAL | | | | [...] + + | BETH LIZ | [address] | [place] [address] | | | [facility] | [...] | | LABORATORY | | | | [facility] [address], | | [place] | | | | [place] [address] | | | | + + + + + + + + | Specimen | + + | Blood specimen | | (specimen) | + + + + + + + | Performing | Address | City/State/Zipcode | Phone Number | | Organization | | | | + + + + + | BETH LIZ | [address] | [place] [address] | | | [facility] | | | | | [...] | | First dose on [facility] 03/30/19 at 1130 | | AM [...] scheduled: AC, NPO, Daytime | | | 4838-1138 Use NIGHT DOSE for | | | doses scheduled: HS, 3AM, | | | Nighttime 7989-9580 If the BG is | | | [...]
--- OUTSIDE RECORDS SUMMARY | ~2020-03-21 | XMS | Encounter Summary ---
Demographics + + + | Address | [address] | | | [place] [address] | + + + | Home Phone [...] | Author | [facility] | | | and [place] | + + + | Organization | [facility] | | | and [place] | + + + | Address | Unknown | + + + | Phone | Unavailable | + + + Support + + + + + | Name | Relationship | Address | Phone | + + + + + | India Tilely | ECON | [address] | | | | | [place], [place] | | | | | [address] | | + + + + + [...] Providers + +------+ + | Care Civil Cad Designer Name | Role | Phone | + +------+ + PCP | Unavailable | + +------+ + Reason for Visit + + + | Reason | Comments | + + + | Referral | [facility] | + + + Encounter Details +--------+ + + + + | Date | Type | Department | Care Team | Description | +--------+ + + + + | 05/26/ | Documentati | [facility] [place] | Carlos Jansen, | Referral ([facility] | | 2019 | on | INFECTIOUS DISEASES | MD [address] | [facility] | | | | [address] | [place] [address] | center) | | | | [place], [place] | [phone] | | | | | [address] | | | | | | [phone] | | | +--------+ + + + [...] 11:27 AM PDTReferral was received 05/18 from [facility] requesting to change ID docs from Dr [...] home. I faxed back his note to [phone]. I did not enter a referral to avoid confusion with t he current referral for [facility]. Will discard additional records in 30 days. documented in this encou nter Plan of Treatment Not on filedocumented as of this encounter Visit Diagnoses Not on filedocumented in this encounter"
--- OUTSIDE RECORDS SUMMARY | ~2020-03-21 | XMS | Encounter Summary ---
Demographics + + + | Address | [address] | | | [place] [address] | + + + | Home Phone [...] + | Author | [facility] | | | and [place] | + + + | Organization | [facility] | | | and [place] | + + + | Address | Unknown | + + + | Phone | Unavailable | + + + Support + + + + + | Name | Relationship | Address | Phone | + + + + + | India Tilley | ECON | [address] | | | | | [place], [place] | | | | | [address] | | + + + + + [...] +------+ + | Care Director Of Public Works Name | Role | Phone | + [...] | | | | [place] | [address] | | | | | [address] | | | | | | [phone] | | | +--------+ + + + [...] FOR AN AUTHORIZATION FROM ISMAEL. SIRIA PHONE# [phone] ically signed by Soledad Marlow at 01/10/2019 [...] above information. Ismael can be reached at [phone] signed by Soledad Marlow at 019 10:56 AM PDTdocumented in this encounter Plan of Treatment Not on filedocumented as of this encounter Visit Diagnoses Not on filedocumented in this encounter"
--- OUTSIDE RECORDS SUMMARY | ~2020-03-21 | XMS | Encounter Summary ---
Demographics + + + | Address | [address] | | | [place] [address] | + + + | Home Phone [...] Author | [facility] | | | and [place] | + + + | Organization | [facility] | | | and [place] | + + + | Address | Unknown | + + + | Phone | Unavailable | + + + Support + + + + + | Name | Relationship | Address | Phone | + + + + + | India Tilley | ECON | [address] | | | | | [place], [place] | | | | | [address] | | + + + + + [...] Providers + +------+ + | Care Assembler Adjuster Name | Role | Phone | [...] [place], | | | | | [place] | [facility], | [place] [address] | | | | | RELATED [place] | [place] | Phone: | | | | | MONTHLY | [address] | [phone] | | | | | 20&/> YR OLD | Phone: | Fax: | | | | | 4/> VISITS | [phone] | [phone] | | | | | | Fax: | | | | | | | [phone] | | +--------+--------+ + + + + Encounter Details +--------+ + + + + | Date | Type | Department | Care Team | Description | +--------+ + + + + | 01/09/ | Off-Site | [facility] [place] | Gopi Muñoz | End stage renal | | 2019 | Visit | NEPHROLOGY [address] | M, DO [address] | disease (HCC) | | | | [address] | [address] [place] | (Primary Dx) | | | | [address] | [place] [address] | | | | | [address] | [phone] | | | | | [phone] | | | +--------+ + + + [...] encounter Progress Notes Gopi Muñoz DO - 01/09/2019 11:00 AM PDT Subjective: DIALYSIS NOTE Patient ID: Estefani Tilley is a 73 y.o. female. HPI Comments: Monthly dialysis visit for this 73 Y0 female who was seen at the [facility] on the MWF shift. She is intermittently dysphoric. However sh e denies cramps, hiccups or nausea. She refused to go for rehab after ORIF [facility] her hip at [facility] on 12/04/18. In addition, I personally consulted [...] 11/03/2017 and then was DC to the [facility] [place]. Unfortunately, she h as had intermittent [...] by Gopi Muñoz DO. 01/15/19 14:57 CC: [facility] Scott Koroma MD [facility] [place], [place] Gopi Hassan DO - 01/09/2019 11:00 AM PD T docuoskar in thi s encounter Plan of Treatment Not on filedocumented as of this encounter Visit Diagnoses + + | Diagnosis | + + | End stage renal disease (HCC) - Primary End stage renal disease | + + documented in this encounter
--- OUTSIDE RECORDS SUMMARY | ~2020-03-21 | XMS | Encounter Summary ---
Demographics + + + | Address | [address] | | | [place] [address] | + + + | Home Phone [...] | Author | [facility] | | | and [place] | + + + | Organization | [facility] | | | and [place] | + + + | Address | Unknown | + + + | Phone | Unavailable | + + + Support + + + + + | Name | Relationship | Address | Phone | + + + + + | India Tilley | ECON | [address] | | | | | [place], [place] | | | | | [address] | | + + + + + | Yina La | ECON | Unknown | | + + + + + | Yina Peterson | ECON | Unknown | | + + + + + | Leatha Casillas | ECON | Unknown | | + + + + + | Azael Ocasoi | ECON | Unknown | | + + + + + | Lisa Ibarra | ECON | Unknown | | + + + + + Care Team Providers + +------+ + | [employer] Records Clerk Name | Role | Phone | + +------+ + | Renato Pierson | PCP | | + +------+ + Encounter Details +--------+ + + + + | Date | Type | Department | Care Team | Description | +--------+ + + + + | 07/12/ | Telephone | [facility] | [facility] | | | 2019 | | [facility] | [address] | | | | | [address] [facility] | [address] | | | | | [place], [place] | [place] [address] | | | | | [id number] | [phone] | | | | | [phone] | | | +--------+ + + + [...]
--- OUTSIDE RECORDS SUMMARY | ~2020-03-21 | XMS | Encounter Summary ---
Demographics + + + | Address | [address] | | | [place] [address] | + + + | Home Phone [...] | Author | [facility] | | | and Kamaljitana | + + + | Organization | [facility] | | | and [place] | + + + | Address | Unknown | + + + | Phone | Unavailable | + + + Support + + + + + | Name | Relationship | Address | Phone | + + + + + | India Tilley | ECON | [address] | | | | | [place], [place] | | | | | [address] | | + + + + + [...] Team Providers + +------+ + | Care Molecular Biologist Name | Role | Phone | + [...] | dialysis (HCC) | | | | [place], [place] | [place], [address] | (Primary Dx) | | | | [address] | [phone] | | | | | [phone] | | | +--------+ + + + [...] 12/25/2019 11:00 AM PDT[Pt not seen]. In [facility] signed by Gopi Muñoz DO at 01/28/2020 5:40 PM PDTdocumented in this [facility] Plan of Treatment Not on filedocumented [...]
--- OUTSIDE RECORDS SUMMARY | ~2020-03-21 | XMS | Encounter Summary ---
Demographics + + + | Address | [address] | | | [place] [address] | + + + | Home Phone [...] | Author | [facility] | | | and Kamaljit[place] | + + + | Organization | [facility] | | | and [place] | + + + | Address | Unknown | + + + | Phone | Unavailable | + + + Support + + + + + | Name | Relationship | Address | Phone | + + + + + | India Tilley | ECON | [address] | | | | | [place], [place] | | | | | [address] | | + + + + + [...] Providers + +------+ + | Care Electrical Engineering Designer Name | Role | Phone | [...] | | Infection | Nick Miller | [place] | | | | | fay | [place], | [place], | | | | | intervertebr | [address] | [place] [address] | | | | | al disc | [address] | Phone: | | | | | (pyogenic), | [place], [place] | [phone] | | | | | thoracic | [address] | Fax: | | | | | region (HCC) | Phone: | [phone] | | | | | | [phone] | | | | | | 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: | | | | | | s of | [phone] | | | | | | thoracic [...] + + | 06/13/ | Office | [facility] | Fabiana Miller, | 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 | 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 | Nick Apodaca MD | intervertebral disc | | | | [address] | [address] | (pyogenic), thoracic | | | | [place], [place] | [place] [address] | region ([facility]) | | | | [address] | [phone] | (Primary Dx); | | | | [phone] | | Osteomyelitis of | | | | | | thoracic vertebra | | | | | | ([facility]); | | | | | | Osteoarthritis, | | | | | | unspecified | | | | | | osteoarthritis type, | | | | | | unspecified site; | | | | | | Other chronic pain; | | | | | | ESRD on dialysis | | | | | | ([facility]); Central | | | | | [...] Pritchard MD - 06/13/2019 2:00 PM PDT [facility]: Infectious Diseases Outpatient Follow Up Note [...] the patient ended up admitted to [facility] in [place] soon aft er that due to fluid overload and CHF exacerbation. I did receive a call from her team of doctors during the patient's hospital stay and I jos mmended to transfer the patient to [facility] or [facility] f or diagnostic work-up for the patient's spinal infectious process. However, the patient was not transferred, the patient did not have repeat CT-guided biopsy. The patient was not sta rted on antibiotics. The patient was told to follow-up as an outpatient. The patient states that she continues to have back pain. 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 She denies fevers, chills, night sweats. She also still has a central sade e which was not addressed during her recent hospitalization. She is not sure who is handlin g this central line. She does not remember which company provided [facility]. She is states that she is not [...] W/CANNULATED SCREWS; Surgeon: Scott Koroma MD; Location: [facility] MAIN OR HYSTERECTOMY MASTECTOMY 2006 left ear NOSE SURGERY 2009 OTHER SURGICAL HISTORY Right 03/28/2019 Procedure: TUNNEL PICC LINE PLACEMENT-6fr 22cm BARD Power Line; Surgeon: Jose Jiménez MD; Location: [facility] INTERVENTIONAL RADIOLOGY REMOVAL TUNNELED CATHETER Right 04/04/[address] Stephenson SHUNT PLACEMENT/INSERTION N/A 11/08/2017 Procedure: Tunneled Hemodialysis Catheter Placement; Surgeon: Nora Leo MD; Location : [facility] MAIN OR SHUNT PLACEMENT/INSERTION Right 02/04/2018 Procedure: INSERTION SHUNT HEMODIALYSIS W/ PERMACATH; Surgeon: Heather Navarro MD; L ocation: [facility] MAIN OR VEIN SURGERY Right 01/04/2018 Procedure: Right Transposed Basilic Vein to Proximal Radial Artery; Surgeon: Santos Stephenson MD, FACS; Location: [facility] MAIN OR SOCIAL HISTORY Social History [...] site Other chronic pain ESRD on dialysis ([facility]) Central venous catheter in place Patient with [...] receive any antibiotic therapy [facility] at the [facility]. She was educated about the risks of permanent central line and risk of bacteremia. We are hoping to get her repeat CT-guided procedure within the next 7 days. The patient wi shes to do this in [place] and we will explore that possibility, otherwise she was expla ined that she has to come to the [facility]. Side effects of medications, duration of [...] REFERENCE | | | | performed at [facility];[address] | | LAB | | | | [place] | | [facility] | | | | [address];[place] [address] | | LABORATORY | | + + + + + + + + | Specimen | + + | Blood | + + + + + + + | Performing | Address | City/State/Zipcode | Phone Number | | Organization | | | | + + + + + | REFERENCE LAB | [address] [place] [address] | [place], [place] | [phone] | | [facility] | Blvd[address] | [address] | | | LABORATORY | | | | + + + + + | REFERENCE LAB | [address] [place] [address] | [place], [place] | | | [facility] | Blvd. | [address] | | | LABORATORY | | | [...] REFERENCE | | | | performed at [facility];[address] | | LAB | | | | [place] | | [facility] | | | | [address];[place] [address] | | LABORATORY | | + + + + + + + + | Specimen | + + | Blood | + + + + + + + | Performing | Address | City/State/Zipcode | Phone Number | | Organization | | | | + + + + + | REFERENCE LAB | [address] [place], [place] [address] | [place], [place] | [phone] | | [facility] | Blvd. | [address] | | | LABORATORY | | | | + + + + + | REFERENCE LAB | [facility] | [place], [place] | | | [facility] | Blvd[address] | [address] | | | LABORATORY | | | | + + + + + documented in this encounter Visit Diagnoses + + | Diagnosis | + + | Infection of intervertebral disc (pyogenic), thoracic region ([facility]) - Primary | + + | Osteomyelitis of thoracic vertebra ([facility]) Unspecified osteomyelitis, other specified | | site | + + | Osteoarthritis, unspecified osteoarthritis type, unspecified site | + + | Other chronic pain | + + | ESRD on dialysis ([facility]) End stage renal disease | + + | Central venous catheter in place | + + documented in this encounter
--- OUTSIDE RECORDS SUMMARY | ~2020-03-21 | XMS | Encounter Summary ---
Demographics + + + | Address | [address] | | | [place] [address] | + + + | Home Phone [...] Author | [facility] | | | and Kamaljitana | + + + | Organization | [facility] | | | and [place] | + + + | Address | Unknown | + + + | Phone | Unavailable | + + + Support + + + + + | Name | Relationship | Address | Phone | + + + + + | India Tilley | ECON | [address] | | | | | [place], [place] | | | | | [address] | | + + + + + [...] Team Providers + +------+ + | Care Photographer News Name | Role | Phone | + +------+ + PCP | Unavailable | + +------+ + Encounter Details +--------+ + + + + | Date | Type | Department | Care Team | Description | +--------+ + + + + | 12/05/ | [facility] | [facility] | Carlos Sandoval | | | 2007 | Encounter | MED CTR XRAY [address] [place] [address] [place] | | | | | [place] | [place], [place] | | | | | [place] [address] | [address] | | | | | [phone] | | | +--------+ + + + [...]
--- OUTSIDE RECORDS SUMMARY | ~2020-03-21 | XMS | Encounter Summary ---
Demographics + + + | Address | [address] | | | [place] [address] | + + + | Home Phone [...] | Author | [facility] | | | and [place]al[place]it[place] | + + + | Organization | [facility] | | | and [place] | + + + | Address | Unknown | + + + | Phone | Unavailable | + + + Support + + + + + | Name | Relationship | Address | Phone | + + + + + | India Tilley | ECON | [address] | | | | | [place], [place] | | | | | [address] | | + + + + + [...] Team Providers + +------+ + | Care Classifier Operator Name | Role | Phone | [...] | [place] | [place] [address] | | | | | [place] [address] | | | | | | [phone] | | | +--------+ + + + [...] for comparison only - no result from [place]. | [facility] | + + + + +---------+ + + | Performing | Address | City/State/Zipcode | Phone Number | | Organization | | | | + +---------+ + + | [facility] | | | | + +---------+ + + documented in this encounter Visit Diagnoses Not on filedocumented in this encounter"
--- OUTSIDE RECORDS SUMMARY | ~2020-03-21 | XMS | Encounter Summary ---
Demographics + + + | Address | [address] | | | [place] [address] | + + + | Home Phone [...] Author | [facility] | | | and [place]al[place]it[place] | + + + | Organization | [facility] | | | and [place] | + + + | Address | Unknown | + + + | Phone | Unavailable | + + + Support + + + + + | Name | Relationship | Address | Phone | + + + + + | India Tilley | ECON | [address] | | | | | [place], [place] | | | | | [address] | | + + + + + [...] Providers + +------+ + | Care Car Parker Name | Role | Phone | + [...] [place] | | | | | [place] | [address] | | | | | [address] | | | | | | [phone] | | | +--------+ + + + [...] Miscellaneous Notes Telephone Encounter - Johanna Arriaga, INFRASTRUCTURE ARCHITECT - 04/05/2019 4:13 PM PDTSp[facility] who clarifies that the way the IV Anbiotics (Vancomycin and Cefepime) were w ritten by Dr. Jansen and sent through [facility] as follows: Vancomycin IV Piggyback, Cefepime IV Push. She states that the facility which is now considering the patient cannot administer IV Jj yback's and IV pushes - it can only administer IV Infusions. The order needs to be re-written to [facility] as: Vancomycin IV infusion, Cefepime IV infusion. She is requesting a call back once the orders have been rewritten. elephone Enco unter - Calli Monaco - 04/05/2019 3:[address] Whitney in the hospital and released pt to a retirement, but pt went to live with family. Family now is overwhelm ed and needs pt to [facility] Family needs to get pt moved to retirement, but a SN home won't take pt due to the way the antibiotics are wrote. Won't accept the way the RX is wrote. Please call Nadira before 5:30 today or tomorrow 7:30. documented in this enco untmargarita Plan of Treatment Not on filedocumented as of this encounter Visit Diagnoses Not on filedocumented in this encounter"
--- OUTSIDE RECORDS SUMMARY | ~2020-03-21 | XMS | Encounter Summary ---
Demographics + + + | Address | [address] | | | [place] [address] | + + + | Home Phone [...] | Author | [facility] | | | and [place]it[place] | + + + | Organization | [facility] | | | and [place] | + + + | Address | Unknown | + + + | Phone | Unavailable | + + + Support + + + + + | Name | Relationship | Address | Phone | + + + + + | India Tilley | ECON | [address] | | | | | [place], [place] | | | | | [address] | | + + + + + [...] Providers + +------+ + | Care Operations Logistics Analyst Name | Role | Phone | [...] [place], | | | | | ([facility]) | [place], | [place] [address] | | | | | | [place] [address] | Phone: | | | | | | Phone: | [phone] | | | | | | [phone] | Fax: | | | | | | Fax: | [phone] | | | | | | [phone] | | +--------+ + + + + + Encounter Details +--------+---------+ + + + | Date | Type | Department | Care Team | Description | +--------+---------+ + + + | 03/10/ | Office | [facility] | Santos Stephenson | Chronic kidney | | 2018 | Visit | SURGERY [address] | MD Kinga, FACS [address] | disease, stage V | | | | [address] [facility], [place] | [facility] | (HCC) (Primary Dx); | | | | [address] | [place] [address] | Post-operative state | | | | [phone] | [phone] | | | | | | | [...] She has been going to dialysis in [place], [place] , states things are going well. [...] Placement; Surgeon: Nora Leo MD; Location : [facility] MAIN OR SHUNT PLACEMENT/INSERTION Right 02/04/2018 Procedure: INSERTION SHUNT HEMODIALYSIS W/ PERMACATH; Surgeon: Heather Navarro MD; L ocation: [facility] MAIN OR VEIN SURGERY Right 01/04/2018 Procedure: Right Transposed Basilic Vein to Proximal Radial Artery; Surgeon: Santos Stephenson MD, FACS; Location: [facility] MAIN OR Allergies Allergen Reactions [...] REPORT: PATIENT NAME : Estefani Tilley EQUIPMENT: SonNalate M-Turbo with 10-5 mHertz probe. INDICATIONS: S/P [...] RIGHT IJ catheter. Patient to follow with doormaker and primary care. I will be available [...]
--- OUTSIDE RECORDS SUMMARY | ~2020-03-21 | XMS | Encounter Summary ---
Demographics + + + | Address | [address] | | | [place] [address] | + + + | Home Phone [...] | Author | [facility] | | | and [place]aljitana | + + + | Organization | [facility] | | | and [place] | + + + | Address | Unknown | + + + | Phone | Unavailable | + + + Support + + + + + | Name | Relationship | Address | Phone | + + + + + | India Tilley | ECON | [address] | | | | | [place], [place] | | | | | [address] | | + + + + + [...] Team Providers + +------+ + | Care Lodge Sales Associate Name | Role | Phone [...] Specialty | Surgery / | Diagnoses | Toni, | Field, | | | Services | General | Chronic | Gopi Roman, | Santos Donato, | | | Required | Surgery | kidney | DO [address] | MD, FACS [address] | | | | | disease, | [address] | [address] | | | | | stage V | [address] | [place], | | | | | ([facility]) | [place], | [place] [address] | | | | | | [place] [address] | Phone: | | | | | | Phone: | [phone] | | | | | | [phone] | Fax: | | | | | | Fax: | [phone] | | | | | | [phone] | | +--------+ + + + + + Encounter Details +--------+ + + + + | Date | Type | Department | Care Team | Description | +--------+ + + + + | 10/06/ | Orders Only | [facility] [place] | Gopi Muñoz | Chronic kidney | | 2018 | | NEPHROLOGY [address] | M, DO [address] | disease, stage V | | | | [address] | [address] [place] | ([facility]) (Primary Dx) | | | | [place], [place] | [place] [address] | | | | | [address] | [phone] | | | | | [phone] | | | +--------+ + + + [...] + + +--------+ + + | * ROSALINO PERES General | Outpatient | Routin | Chronic kidney | Ordered: 10/06/2017 | | Surgery - AMB | Referral | e | disease, stage V | | | Referral | | | (HCC) | | + [...]
--- OUTSIDE RECORDS SUMMARY | ~2020-03-21 | XMS | Encounter Summary ---
Demographics + + + | Address | [address] | | | [place] [address] | + + + | Home Phone [...] | Author | [facility] | | | and Kamaljitana | + + + | Organization | [facility] | | | and [place] | + + + | Address | Unknown | + + + | Phone | Unavailable | + + + Support + + + + + | Name | Relationship | Address | Phone | + + + + + | India Tilley | ECON | [address] | | | | | [place], [place] | | | | | [address] | | + + + + + [...] Providers + +------+ + | Care Rn Plastics Name | Role | Phone | + [...] | | [address] | Y, Operations Research Director | intervertebral disc | | | | [place] | | (pyogenic), thoracic | | | | [address] | | region ([facility]); | | | | [phone] | | Osteomyelitis of | | | | | | thoracic vertebra | | | | | | ([facility]) | +--------+ + + + + Social [...] section. | | | | | region ([facility]) | | | | | | Osteomyelitis of | | | | | | thoracic vertebra | | | | | | ([facility]) | | + +--------+ + + + | CBC WITH | Routin | 05/18/2019 | Infection of | Results for this | | DIFFERENTIAL | e | 3:45 PM | intervertebral disc | procedure are in the | | | | PDT | (pyogenic), thoracic | results section. | | | | | region ([facility]) | | | | | | Osteomyelitis of | | | | | | thoracic vertebra | | | | | | ([facility]) | | + +--------+ + + + | C-REACTIVE PROTEIN | Routin | 05/18/2019 | Infection of | Results for this | | | e | 3:45 PM | intervertebral disc | procedure are in the | | | | PDT | (pyogenic), thoracic | results section. | | | | | region ([facility]) | | | | | | Osteomyelitis [...] section. | | | | | region ([facility]) | | | | | | Osteomyelitis [...] section. | | | | | region ([facility]) | | | | | | Osteomyelitis [...] | | | Absolute | performed at [facility];[address] | [address] | LAB | | | | [facility] | | [facility] | | | | [address];[place] [address] | | LABORATORY | | + + + + + + + + | Specimen | + + | Blood | + + + + + + + | Performing | Address | City/State/Zipcode | Phone Number | | Organization | | | | + + + + + | REFERENCE LAB | [address] [place] [address] | [place], [place] | [phone] | | [facility] | Blvd[address] | [address] | | | LABORATORY | | | | + + + + + | REFERENCE LAB | [address] [place] [address] | [place], [place] | | | [facility] | Bl[address] | [address] | | | LABORATORY | | | [...] | | | | | performed at [facility];[address] | | | | | | [facility] | | | | | | vd;[place] [address] | | | | | | | | | | + + + + + + + + | Specimen | + + | Blood | + + + + + + + | Performing | Address | City/State/[facility] Health Centercode | Phone Number | | Organization | | | | + + + + + | REFERENCE LAB | [address] [place] [address] | [place], [place] | [phone] | | [facility] | Bl[address] | [address] | | | LABORATORY | | | | + + + + + | REFERENCE LAB | [address] [place] [address] | [place], [place] | | | [facility] | Blvd[address] | [address] | | | LABORATORY | | | [...] REFERENCE | | | | performed at [facility];[address] | | LAB | | | | [place] | | [facility] | | | | [address];[place] [address] | | LABORATORY | | + + + + + + + + | Specimen | + + | Blood | + + + + + + + | Performing | Address | City/State/Zipcode | Phone Number | | Organization | | | | + + + + + | REFERENCE LAB | [address] | [place] | [phone] | | [facility] | Bl[address] | [address] | | | LABORATORY | | | | + + + + + | REFERENCE LAB | [address] [facility] | [place] | | | [facility] | Bl[address] | [address] | | | LABORATORY | | | [...] [facility] | | | | Blvd;[place] [address] | | LABORATORY | | + + + + + + + + | Specimen | + + | Blood | + + + + + + + | Performing | Address | City/State/Zipcode | Phone Number | | Organization | | | | + + + + + | REFERENCE LAB | [address] [facility] | [place] | [phone] | | [facility] | [address] | [address] | | | LABORATORY | | | | + + + + + | REFERENCE LAB | [address] [facility] | [place] | | | [facility] | Bl[address] | [address] | | | LABORATORY | | | [...] REFERENCE | | | | TC;[address] [facility] | | LAB | | | | Blvd;[place] | | [facility] | | | | [id number]: Testing | | LABORATORY | | | | performed at [facility], [address] | | | | | | [address], | | | | | | [place] [address] | | | | + + + + + + + + | Specimen | + + | Blood - Structure of | | antecubital vein | | (body structure) | + + + + + + + | Performing | Address | City/State/Zipcode | Phone Number | | Organization | | | | + + + + + | REFERENCE LAB | [address] [place] [address] | [place], [place] | [phone] | | [facility] | Bl[address] | [address] | | | LABORATORY | | | | + + + + + | REFERENCE LAB | [address] [place] [address] | [place], [place] | | | [facility] | Blvd. | [address] | | | LABORATORY | | | [...]
--- OUTSIDE RECORDS SUMMARY | ~2020-03-21 | XMS | Encounter Summary ---
Demographics + + + | Address | [address] | | | [place] [address] | + + + | Home Phone [...] Author | [facility] | | | and Kamaljitana | + + + | Organization | [facility] | | | and [place] | + + + | Address | Unknown | + + + | Phone | Unavailable | + + + Support + + + + + | Name | Relationship | Address | Phone | + + + + + | India Tilley | ECON | [address] | | | | | [place], [place] | | | | | [address] | | + + + + + [...] Team Providers + +------+ + | Care Nitric Acid Concentrator Operator Name | Role | Phone | + +------+ + | Renato Pierson | PCP | | + +------+ + Encounter Details +--------+ + + + + | Date | Type | Department | Care Team | Description | +--------+ + + + + | 08/16/ | Telephone | [facility] | Fransisco Johnston MD | | | 2019 | | [facility] | [address] | | | | | [address] | [address] | | | | | [place], [place] | [place] [address] | | | | | [address] | [phone] | | | | | [phone] | | | +--------+ + + + [...]
--- OUTSIDE RECORDS SUMMARY | ~2020-03-21 | XMS | Encounter Summary ---
Demographics + + + | Address | [address] | | | [place] [address] | + + + | Home Phone [...] | Author | [facility] | | | and Kamaljitana | + + + | Organization | [facility] | | | and [place] | + + + | Address | Unknown | + + + | Phone | Unavailable | + + + Support + + + + + | Name | Relationship | Address | Phone | + + + + + | nIdia Tilley | ECON | [address] | | | | | [place], [place] | | | | | [address] | | + + + + + [...] Team Providers + +------+ + | Care Implement Mechanic Name | Role | Phone | [...] | | [place] | [place] [address] | | | | | [address] | [phone] | | | | | [phone] | | | +--------+ + + + [...]
--- OUTSIDE RECORDS SUMMARY | ~2020-03-21 | XMS | Encounter Summary ---
Demographics + + + | Address | [address] | | | [place] [address] | + + + | Home Phone [...] | Author | [facility] | | | and [place]aljitana | + + + | Organization | [facility] | | | and [place] | + + + | Address | Unknown | + + + | Phone | Unavailable | + + + Support + + + + + | Name | Relationship | Address | Phone | + + + + + | India Tilley | ECON | [address] | | | | | [place], [place] | | | | | [address] | | + + + + + [...] Providers + +------+ + | Care Estimator Jewelry Name | Role | Phone | + +------+ + PCP | Unavailable | + +------+ + Encounter Details +--------+ + + + + | Date | Type | Department | Care Team | Description | +--------+ + + + + | 05/12/ | [facility] | [facility] | | | | 2006 - | Encounter | MED CTR CANCER | | | | | | [place] | | | | 05/13/ | | [place] | | | | 2006 | | [address] | | | | | | [phone] | | | +--------+ + + + [...]
--- OUTSIDE RECORDS SUMMARY | ~2020-03-21 | XMS | Encounter Summary ---
Demographics + + + | Address | [address] | | | [place] [address] | + + + | Home Phone [...] | Author | [facility] | | | and [place] | + + + | Organization | [facility] | | | and [place] | + + + | Address | Unknown | + + + | Phone | Unavailable | + + + Support + + + + + | Name | Relationship | Address | Phone | + + + + + | India Tilley | ECON | [phone] | | | | | [place], [place] | | | | | [address] | | + + + + + [...] Team Providers + +------+ + | Care Ham Sawyer Name | Role | Phone | [...] + + | 01/05/ | Office | [facility] | Scott Koroma, | Closed fracture of | | 2019 | Visit | ORTHOPEDIC SURGERY | [address] | neck of right femur, | | | | [address] [place] | [place] | initial encounter | | | | [place] | [id number] | ([facility]) (Primary Dx); | | | | [address] | | Right hip pain | | | | [phone] | | | +--------+---------+ + + + [...]
--- OUTSIDE RECORDS SUMMARY | ~2020-03-21 | XMS | Encounter Summary ---
Demographics + + + | Address | [address] | | | [place] [address] | + + + | Home Phone [...] + | Author | [facility] | | | and Kamaljitana | + + + | Organization | [facility] | | | and [place] | + + + | Address | Unknown | + + + | Phone | Unavailable | + + + Support + + + + + | Name | Relationship | Address | Phone | + + + + + | India aCmpos | ECON | [id number] | | | | | [place], [place] | | | | | [address] | | + + + + + [...] Team Providers + +------+ + | Care Stunt Double Name | Role | Phone | + [...] renal | [address] | [address] | | | | | disease) on | [address] [place] | [place], | | | | | dialysis | [place], [place] | [place] [address] | | | | | ([facility]) | [address] | Phone: | | | | | | Phone: | [phone] | | | | | | [phone] | Fax: | | | | | | Fax: | [phone] | | | | | | [phone] | | +--------+--------+ + + + + [...] | | | | | dialysis | [facility], [place] | [place] | | | | | ([facility]) | [address] | [address] | | | | | Essential | Phone: | Phone: | | | | | hypertension | [phone] | [phone] | | | | | Type 2 | Fax: | Fax: | | | | | diabetes | [phone] | [phone] | | | | | mellitus | [...] | | | | | | | ([facility]) | | | +--------+ + + + [...] [place] | | | | | ([facility]) | [address] | [address] | | | | | Essential | Phone: | Phone: | | | | | hypertension | [phone] | [phone] | | | | | Type 2 | Fax: | Fax: | | | | | diabetes | [phone] | [phone] | | | | | mellitus | [...] | | | | | | | ([facility]) | | | +--------+ + + + [...] + + | 05/20/ | Hospital | [facility] | Mirza Retana | Hypoxia; Pulmonary | | 2019 - | Encounter | [facility] | MD Coy [address] | edema with | | | | [address] [place] | [address] [place] | congestive heart | | 05/25/ | | [place] [address] | [place] [address] | failure, NYHA class | | 2019 | | [phone] | [phone] | 4 ([facility]); ESRD (end | | | | | | stage renal disease) | | | | | Nora Christina MD | on dialysis ([facility]); | | | | | [address] | Hypertensive | | | | | [place] | urgency, malignant; | | | | | [id number] | Anemia in chronic | | | | | | kidney disease, on | | | | | | chronic dialysis | | | | | | ([facility]); Essential | | | | | | [...] Christina MD - 05/25/2019 11:24 AM PDT [place] HOSPITALIST DISCHARGE SUMMARY Pt. 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 S/p thoracentesis wit h 1300cc fluid removed, studies c/w transudative effusion. Cytology negative for malignant c ells. No growth on culture thus far. Patient is on room air. Of note, recent echo in March owed normal EF. 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 SBP 200s on a rrival here. Blood pressure improved after HD, resumption of home medications. Amlodipine an d losartan also added, Nephrology will CTM as outpatient. #Acute metabolic encephalopathy Possibly 2/2 medication as patient received 1mg Ativan at OSH DIE CA[facility] DIE [facility]KER. At baseline currently. #Recent osteomyelitis Patient admitted [...] Nephrology Why: Nephrology follow up Contact information: [address] [place] [id number] Condition: stable Diet: renal, cc Greater than 30 minutes were spent on discharge and coordination of post-hospital care. Electronically signed by: Nora Christina MD, 05/25/2019 11:24 [facility] documented in this enco unter Discharge [...] (HCC), Diabetes (HCC), Heart disease, Hemodialysis patient ([facility]), History of blood clots, Hypercholesteremia, Hypertensio n, Hypothyroidism, Renal failure, Seasonal allergies, and Stroke (cerebrum) ([facility]). . Risk fa ctors for MDR organisms [...] Culture, Body Fluid, Sterile, Smear, with Anaerobes [[id number]] Collected: 05/22/19 150 Order Status: Sent Lab Status: In process Updated: 05/22/19 151 Specimen: Body Fluid from Pleural Fluid, Left Narrative: The following orders were created for panel order Culture, Body Fluid, Sterile, Smear, wit h Anaerobes. Procedure Abnormality Status --------- ------ Culture, Body Fluid, Aerobe[[id number]] Preliminary result Culture, Body Fluid, Bre...[[id number]] In process Please view results for these tests on the individual orders. Culture, Fungus, Smear [[id number]] Collected: 05/22/19 150 Order Status: Sent Lab Status: In process Updated: 05/22/19 151 Specimen: Body Fluid from Pleural Fluid, Left Culture, Body Fluid, Aerobe [[id number]] Collected: 05/22/19 150 Order Status: Completed Lab Status: Preliminary result Updated: 05/24/19 1038 Specimen: Body Fluid from Pleural Fluid, Left Culture No growth to date Gram Stain Result 4+ White Blood Cells No organisms seen Culture, Body Fluid, Anaerobe [[id number]] Collected: 05/22/19 150 Order Status: Resulted Lab Status: In process Updated: 05/22/19 1510 Specimen: Body Fluid from Pleural Fluid, Left Culture, MRSA [[id number]] Collected: 05/20/19 202 Order Status: Completed Lab Status: Final result Updated: 05/22/19 0753 Specimen: Tissue from Nares Culture Negative for MRSA by chromogenic agar method. 2+ Coagulase positive Staphylococcus Culture, Blood, 2nd Specimen [[id number]] Collected: 05/18/19 1548 Order Status: Completed Lab Status: Final result Updated: 05/24/19545 RESULT NO GROWTH 6 DAYS RESULT Testing performed at [facility];[address] [place] [address];[place] [address] Comment: Testing performed at [facility], [address] [place] [address], [place] [address] Culture, Blood [[id number]] Collected: 05/18/19 1508 Order Status: Completed Lab Status: Final result Updated: 05/24/19545 Specimen: Blood from Antecubital, Right RESULT NO GROWTH 6 DAYS RESULT Testing performed at [facility];[address] [place] [address];[place] [address] Comment: Testing performed at [facility], [address] [place] [address], [place] [address] Culture, Blood [[id number]] Collected: 05/18/19 1447 Order Status: Canceled Lab [...] and htn Prior to admission dialysis schedule: [facility] Vancomycin Dosing in HD patients: Loading [...] ESR, Cxs, case with his previous ID Financial Wellness Coach, Dr. Nick Miller MD . He recommends [...] Bx's here. Therefore, shai kearney confer with [facility] IR, outpt. She was agreeable to staying one more nite for HD and clarif y AB regimen. Vanc. /Cefepime were given, IV, during discussion, after reviewing MRI report but before the phone conversation with Dr. Jung. BP control is better. Her Mental status is very clear. Also had HD x 5 hrs, 2K+, 35 HCO3 a nd tolerated well. [facility] Joo Rodriguez, Computer Software Engineer - 05/24/2019 3:46 PM PDT VANCOMYCIN PER [...] Renal failure, Seasonal allergies, and Stroke (cerebrum) ([facility]). . Risk fa ctors for MDR organisms [...] Culture, Body Fluid, Sterile, Smear, with Anaerobes [[id number]] Collected: 05/22/19 150 Order Status: Sent Lab Status: In process Updated: 05/22/191512 Specimen: Body Fluid from Pleural Fluid, Left Narrative: The following orders were created for panel order Culture, Body Fluid, Sterile, Smear, wit h Anaerobes. Procedure Abnormality Status --------- ------ Culture, Body Fluid, Aerobe[[id number]] Preliminary result Culture, Body Fluid, Bre...[[id number]] In process Please view results for these tests on the individual orders. Culture, Fungus, Smear [[id number]] Collected: 05/22/19 150 Order Status: Sent Lab Status: In process Updated: 05/22/19 151 Specimen: Body Fluid from Pleural Fluid, Left Culture, Body Fluid, Aerobe [[id number]] Collected: 05/22/19 1509 Order Status: Completed Lab Status: Preliminary result Updated: 05/24/19 1038 Specimen: Body Fluid from Pleural Fluid, Left Culture No growth to date Gram Stain Result 4+ White Blood Cells No organisms seen Culture, Body Fluid, Anaerobe [[id number]] Collected: 05/22/19 1509 Order Status: Resulted Lab Status: In process Updated: 05/22/19 151 Specimen: Body Fluid from Pleural Fluid, Left Culture, MRSA [[id number]] Collected: 05/20/192021 Order Status: Completed Lab Status: Final result Updated: 05/22/19 0753 Specimen: Tissue from Nares Culture Negative for MRSA by chromogenic agar method. 2+ Coagulase positive Staphylococcus Culture, Blood, 2nd Specimen [[id number]] Collected: 05/18/19 1548 Order Status: Completed Lab Status: Final result Updated: 05/24/19545 RESULT NO GROWTH 6 DAYS RESULT Testing performed at [facility];[address] [place] [address];[place] [address] Comment: Testing performed at [facility], [address] [place] [address], [place] [address] Culture, Blood [[id number]] Collected: 05/18/19 1508 Order Status: Completed Lab Status: Final result Updated: 05/24/19545 Specimen: Blood from Antecubital, Right RESULT NO GROWTH 6 DAYS RESULT Testing performed at [facility];[address] [place] [address];[place] [address] Comment: Testing performed at [facility], [address] [place] [address], [place] [address] Culture, Blood [[id number]] Collected: 05/18/19 1447 Order Status: Canceled Lab [...] Monitoring Protocol Electronically signed by: Joo Bo, Computer Software Engineer 05/24/2019 15:46Electroni terri signed by Joo Bo, Computer Software Engineer at 05/24/2019 4:49 PM Kwame Guerin MD - 05/24/2019 11:04 AM PDTFormatting of this note might be different from the origin [place], [place] HOSPITALIST PROGRESS NOTE Patient: Ara Campos : 1945: Age: 74 y.o. MedRec: [id number] Admission date: 05/20/2019 Hospital day # : [...] as patient received 1mg Ativan at OSH [facility]IE [facility]. At baseline currently. #Recent osteomyelitis Patient admitted 03/24- with T11-12 osteomyelitis and completed 6 weeks vanc/cefepime. Rep eat MRI again redemonstrated possible osteomyelitis - vanc and cefepime have been resumed, Deepa Muñoz is discussing case with ID. #Diabetes Blood sugars at goal. CCM. Patient is again very upset about the food provided at the [facility] and is eating little to no [...] Culture, Body Fluid, Sterile, Smear, with Anaerobes [[id number]] Collected: 05/22/19 150 Order Status: Sent Lab Status: In process Updated: 05/22/19 151 Specimen: Body Fluid from Pleural Fluid, Left Narrative: The following orders were created for panel order Culture, Body Fluid, Sterile, Smear, wit h Anaerobes. Procedure Abnormality Status --------- ------ Culture, Body Fluid, Aerobe[[id number]] Preliminary result Culture, Body Fluid, Bre...[[id number]] In process Please view results for these tests on the individual orders. Culture, Fungus, Smear [[id number]] Collected: 05/22/19 150 Order Status: Sent Lab Status: In process Updated: 05/22/19 151 Specimen: Body Fluid from Pleural Fluid, Left Culture, Body Fluid, Aerobe [[id number]] Collected: 05/22/19 150 Order Status: Completed Lab Status: Preliminary result Updated: 05/24/19 1038 Specimen: Body Fluid from Pleural Fluid, Left Culture No growth to date Gram Stain Result 4+ White Blood Cells No organisms seen Culture, Body Fluid, Anaerobe [[id number]] Collected: 05/22/19 1509 Order Status: Resulted Lab [...] diskitis of T11-T12, s/p AB Rx. Thanks. [facility]: MRI and CT dated 03/23/2019. FINDINGS: [...] rate 6L/min Nora Christina MD 05/24/2019 11:04 [facility] Michelle Solorzano Phar mD - [...] Tobacco & Alcohol use/frequency: ? 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 She either di d not want to take her medications, or she stated that she did not know if she was taking th em. She did not want to do the interview. Best possible DIE CAST DIE MAKER medication list after pharmacy review: Medication review performed and electronically signed by Kerry Jordan, Engineer Sergeant 05/23/2019 16:20 Reviewed by Michelle Ochoa, PharmD 05/23/2019 18:26 Nora Guerin MD - 05/23/2019 3:20 PM PDT [place] HOSPITALIST PROGRESS NOTE Patient: Ara Campos : 1945: Age: 74 y.o. MedRec: [id number] Admission date: 05/20/2019 Hospital day # : [...] as patient received 1mg Ativan at OSH DIE CAST DIE [facility]KER. At baseline currently. #Recent osteomyelitis Patient admitted [...] Culture, Body Fluid, Sterile, Smear, with Anaerobes [[id number]] Collected: 05/22/19 150 Order Status: Sent Lab Status: In process Updated: 05/22/191512 Specimen: Body Fluid from Pleural Fluid, Left Narrative: The following orders were created for panel order Culture, Body Fluid, Sterile, Smear, wit h Anaerobes. Procedure Abnormality Status --------- ------ Culture, Body Fluid, Aerobe[[id number]] Preliminary result Culture, Body Fluid, Bre...[[id number]] In process Please view results for these tests on the individual orders. Culture, Fungus, Smear [[id number]] Collected: 05/22/191508 Order Status: Sent Lab Status: In process Updated: 05/22/191509 Specimen: Body Fluid from Pleural Fluid, Left Culture, Body Fluid, Aerobe [[id number]] Collected: 05/22/19 150 Order Status: Completed Lab Status: Preliminary result Updated: 05/23/19 09 Specimen: Body Fluid from Pleural Fluid, Left Culture No growth to date Gram Stain Result 4+ White Blood Cells No organisms seen Culture, Body Fluid, Anaerobe [[id number]] Collected: 05/22/19 150 Order Status: Resulted Lab Status: In process Updated: 05/22/191509 Specimen: Body Fluid from Pleural Fluid, Left Culture, MRSA [[id number]] Collected: 05/20/192021 Order Status: Completed Lab Status: [...] rate 0.5L/min Nora Christina MD 05/23/2019 15:20 [facility] documented in this enco unter H&P Notes [...] Class 3 (soft and hard palate clearly) [place] [employer] Anest[employer] Grade:ASA 2 - A patient with mild systemic disease Sedation Plan:Moderate VERIFICATION OF CONSENT (PARQ) The patient was counseled regarding the procedure, its indications, risks, potential compli cations and alternatives. Any questions were answered. Consent was obtained. Akash Ashraf MD, 05/23/2019 16:22 [facility] Chuck Kasper MD - 05/20/2019 8:42 PM PDT [place] HOSPITALIST HISTORY & PHYSICAL Patient: Ara Jimenez Jarek : 1945: Age: 74 y.o. MedRec: [id number] Admission date: 05/20/2019 Hospital day # : [...] is compliant with medications. Patient presented to [facility], patient at that time was requiring [...] W/CANNULATED SCREWS; Surgeon: Scott Koroma MD; Location: [facility] MAIN OR HYSTERECTOMY MASTECTOMY 2006 left ear NOSE SURGERY 2009 OTHER SURGICAL HISTORY Right 03/28/2019 Procedure: TUNNEL PICC LINE PLACEMENT-6fr 22cm BARD Power Line; Surgeon: Jose Jiménez MD; Location: [facility] INTERVENTIONAL RADIOLOGY REMOVAL TUNNELED CATHETER Right 04/04/[address] Stephenson SHUNT PLACEMENT/INSERTION N/A 11/08/2017 Procedure: Tunneled Hemodialysis Catheter Placement; Surgeon: Nora Leo MD; Location : [facility] MAIN OR SHUNT PLACEMENT/INSERTION Right 02/04/2018 Procedure: INSERTION SHUNT HEMODIALYSIS W/ PERMACATH; Surgeon: Heather Navarro MD; L ocation: [facility] MAIN OR VEIN SURGERY Right 01/04/2018 Procedure: Right Transposed Basilic Vein to Proximal Radial Artery; Surgeon: Santos Stephenson MD, FACS; Location: [facility] MAIN OR FAMILY HISTORY: family history [...] Value Units Date/Time Culture, Blood, 2nd Specimen [[id number]] Collected: 05/18/19 1548 Order Status: Completed Lab Status: Preliminary result Updated: 05/20/19717 RESULT NO GROWTH 2 DAYS RESULT Testing performed at [facility];[address];[place] [address] Comment: Testing performed at [facility], [address], [place] [address] Culture, Blood [[id number]] Collected: 05/18/19 1508 Order Status: Completed Lab Status: Preliminary result Updated: 05/20/19717 Specimen: Blood from Antecubital, Right RESULT NO GROWTH 2 DAYS RESULT Testing performed at [facility];[address];[place] [address] Comment: Testing performed at [facility], [address], [place] [address] Radiology results No results found. I reviewed [...] of vancomycin/cefepime. At that time, admitted to [facility]. IR aspiration of T11/T12 gram stain/cultures had [...] signed by: Olegario Peng MD 05/20/2019 20:42 [facility] documented in this e ncounter Consult Notes Gopi Muñoz, DO - 05/21/2019 6:10 PM PDT [facility] [address] [place] [address] NEPHROLOGY CONSULT Pt. Name/Age/: Ara Campos 74 y.o. 1945 Med. Record Number: [id number] Date of admission: 05/20/2019 Reason for consultation: Acute pulmonary edema Referring Provider: ED, [facility], [place]. 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 She skipped her [...] multiple conversations with the charge nurse at [facility], as she almost daily presents with hypertensive [...] 11/03/2017 and then was DC to the [facility] at [place], [place]. Unfortunately, she h as had intermittent [...] marked as taking for the 05/20/19 encounter ([facility] [ Dialysis Clinic suspects that she is [...] has very f requent absenteeism from the [facility]. FAMILY HISTORY: Father: [...] effusion? 9. Recent history of osteomyelitis of N33-K75--Fkeh recheck her ESR, CRP. Also will consi jorge repeat imaging although CT of the chest, today, does show some imaging of that reason? PLAN 1. This AM she had 5-hour Nxstage treatment, QB 350, daily 7 L/hour, [id number], 2K + with UF 4 kg. 2. We will ask radiology to kindly attempt US guided thoracentesis in a.m. with work-up of fluid including protein, LDH, glucose, cell count, differential, AFB, fungal, bacterial kvng dies and cytology. 3. I strongly reinforced the need for a <1000 cc daily fluid restriction. 4. I had a very evelin, [id number] discussion with Ara that she is very high risk fo r CVA given her current practice. I discussed that transportation to and from the clinic is a major roadblock for successful CARD LACER JACQUARD. I told her I think she may be better served [place], nearby a local [facility] clinic. She states that she will consider this. 5. GI and DVT prophylaxis is already been ordered by the hospitalist service. Appreciate their help. Thank you for the chance to see this very interesting patient. Will follow the patient kisha arechiga. [facility] CC: [facility], [place], [place]. Nick Jung MD, MPH Mat Brooks MD, [facility], [place] ED, [facility] [place] [place] documented in thi s encounter Miscellaneous Notes Plan of Care - Sharon Rosado RN - 05/25/2019 2:15 PM PDTThis CM f/u with patient today reg arding all her discharge planning needs. Let patient know that an OP PT OT referral order was sent to [facility] with c all to them letting them know that patient is being discharged today and that an order has b een faxed. Fax transmission with + fax confirmation placed in ghost chart. CM also faxed the order for patient's PICC care weekly to f# [phone] Peralta to sign off so [...] to be compliant with her HD at [facility]. She states that she drives herself there and back. Her sister will be driving her home today, so reminded her to remind her sister to go to r dialysis treatments and not miss them. This CM also left message with LISA Mock, at [facility] letting her know that patient was d ischarged today and that she is being set up with OP therapies and OP Infusions at [facility]. She will continue her OP HD at [facility] in [place]. Requested that Emili start working on the [...] ent. Compliance comes and goes regarding medications. BRICK EXTRUDER OPERATOR set her up for shower, but pt did not comply. Currently undergoing dialysis (MWF), VSS, no c/o pain. lan of Sharon Vicente RN - 05/24/2019 4:34 PM PDTThis CM contacted Aleta at [facility] in [place]. She states that patient has been a [...] she needs to keep her appts. Emili, [facility], p# [phone], from [facility] called this CM and was segundo [...] herring sport her home tomorrow. Left this senior technical writer's p# with her. CM to [...] Therapy Discharge Recommendations are: Recommended discharge disposition: [facility] facility Post discharge physical therapy recommendation: will [...] Assistive Device: bed rails Scoot/Bridge, Level of [place]: supervised Supine to Sit, [place] of [place]: stand by assist, verbal cues required Sit to Supine, [place] of [place]: stand by assist Safety Issues: decreased use [...] STG Status progressing at 05/24/2019 1126 STG [place] Level modified independent at 05/22/2019 1042 STG Assistive Device none at 05/22/2019 1042 Csh-Eajvp-Hgp Goal Most Recent Value STG Status new at 05/22/2019 1042 STG [place] Level modified independent at 05/22/2019 1042 STG Assistive Device 2 wheeled walker (FWW) at 05/22/2019 1042 Gait Goal Most Recent Value STG Status new at 05/22/2019 1042 STG [place] Level modified independent at 05/22/2019 1042 STG [...] RN at 05/23/2019 1:37 PM PDTPlan of [facility] - Kimberly Lanza OT Stud ent - [...] 11:11 AM PDTPortions of the avelina luation clinical data management manager were performed and entered by Kimberly Lanza, [...] Mira León RN - 05/22/2019 6:02 PM [id number] Received from [facility]. A&O. R chest PICC intact. Pt remains on fluid restriction. lan of Care - Pita Alexander RN - 05/22/2019 11: 21 AM PDTDischarge Planning: CM to patient room for supportive visit. Patient alert and oriented x 3 and resting comfortably in bed. Patient's son and also her sister India ([phone]) present and suppo rtive at bedside. CM verified that patient sees [facility] for primary care, however they current ly do not have a provider so she has been utilizing Dr. Muñoz for any needs. Patient is an ESRD patient who goes to outpatient hemodialysis M,W,F at the [facility] in [place]. Options for discharge discussed. PT/OT are recommending SNF. Patient endorses that s he has been to [facility] in the past and is adamant that she not return there. CM discuss ed options for local SNF's in [place]. Patient states she "will have to think about bettye t" and did not zakiya permission for CM to send referrals. Patient does not own her own home , but alternates between staying with her sisters or her son so is unable to commit to a [facility] permanent address for home health services. Patient and her sister came up with idea for outpatient therapies through [facility] at the [facility] in [place]. That way the patient could go to set appointments regard less of where she is staying. CM left sticky note for provider to order. Patient denies any additional questions, concerns, or needs regarding anticipated plan to return home with family in [place] when medically stable. Patient's son or sister shai kearney provide transportation and will be available to assist as needed after discharge. Disposition: Plan A: Home with family support and chronic outpatient HD, and outpatient therapies through [facility] in [place]. Vs Plan B: TBD CM to continue [...] mobilize at level safe for home discharge, [facility] indicating signif icant impairment with basic functional [...] Therapy Discharge Recommendations are: Recommended discharge disposition: [facility] facility Post discharge physical therapy recommendation: will [...] heavily on FWW for support Level of [place]: contact guard assist, verbal cues required Assistive Device: 2 wheeled walker (FWW) Distance (feet): 120 Impairments: impaired balance, pain, strength decreased, postural control impaired, motor c ontrol impaired Transfers cuing for sequencing and safety w/ fair return demo Sit-Stand, [place] of [place]: contact guard assist, verbal cues required Stand-Sit, [place]: stand by assist, verbal cues required Ggu-Eefyv-Ltf, Assistive Device: 2 wheeled walker (FWW) Safety [...] Assistive Device: bed rails Scoot/Bridge, [place] of [place]: supervised Supine to Sit, [place]: stand by assist, verbal cues required Sit to Supine, [place] of [place]: stand by assist Safety Issues: decreased use of arms for pushing/pulling, impaired trunk control for bed mo bility, decreased use of legs for bridging/pushing Impairments: strength decreased, impaired balance, postural control impaired Balance Sitting Balance: Static: normal balance Sitting Balance: Dynamic: good balance Standing Balance: Static: fair balance Standing Balance: Dynamic: (fair-) [facility] BASIC MOBILITY Turning from your back to [...] Mobility Six Click AM-PAC: 17 Completed the [facility] Activity Measure for Post Acute Care [...] STG Status new at 05/22/2019 1042 STG [place] Level modified independent at 05/22/2019 1042 STG Assistive Device none at 05/22/2019 1042 Jqx-Crfhi-Has Goal Most Recent Value STG Status new at 05/22/2019 1042 STG [place] Level modified independent at 05/22/2019 1042 STG Assistive Device 2 wheeled walker (FWW) at 05/22/2019 1042 Gait Goal Most Recent Value STG Status new at 05/22/2019 1042 STG [place] Level modified independent at 05/22/2019 1042 STG [...] History of end-stage renal disease (MWF), hypertension, phl-odwqwns-psjbjmrjf diabet es, hypothyroidism, anemia of chronic disease, [...] cu es for safety. Grooming, Level of [place]: stand by assist, verbal cues required, set [...] bed rails, HOB elevated Scoot/Bridge, [place] of [place]: supervised Supine to Sit, [place] of [place]: stand by assist Sit to Supine, [place] of [place]: stand by assist Safety Issues: cognitive deficits [...] still attached to monitors. Sit-Stand, [place] of [place]: contact guard assist, verbal cues required Stand-Sit, [place] of [place]: stand by assist, verbal cues required Mhj-Cudyf-Shi, Assistive Device: none(pt refused using FWW) Safety [...] STG Status new at 05/21/2019 1640 STG [place] Level modified independent at 05/21/2019 1640 Toilet Transfer Goal Most Recent Value STG Status new at 05/21/2019 1640 STG [place] Level modified independent at 05/21/2019 1640 Tub/Shower Transfer Goal Most Recent Value Tub/Shower Type tub/shower combo at 05/21/2019 1640 STG Status new at 05/21/2019 1640 STG [place] Level modified independent at 05/21/2019 1640 Electronically signed by: Kimberly Lanza OT Student, 05/21/2019 17:20 Associated attestation - Daina Dumont OT - 05/21/2019 5:54 PM PDTPortions of the avelina luation clinical data management manager were performed and entered by Kimberly Lanza, Occupational Therapy Stud ent, under the direct supervision of Clinical Instructing Lisreplaced by [facility] ansoned Occupational Therapist. I have reviewed this documentation [...] or CPAP. e states she was at [facility] a while ago, she cannot recall how long ago it was. When asked about her PCP she stated she goes to the [facility] and then declined to answer any more [...] Ashlie Navarro RN - 05/21/2019 8:30 AM [id number] today- Oral meds held until after Hemodialysis [...] | | | | | | dialysis ([facility]) | | | | | | Essential [...] [address] | [place] | [phone] | | [facility] | | [address] | | | - LABORATORY | | [...] [address] | [place] | [phone] | | [facility] | | [address] | | | - LABORATORY | | [...] mL/min/1.73m2 | [facility] | | | [place]DIAN | RATE,ESTIMATED | | MEDICAL | | | | mL/min/1.84b7Naie than | | CENTER - | | [...] [address] | [place] | [phone] | | [facility] | | [address] | | | - LABORATORY | | [...] + | [address] | [address] | [place] | [phone] | | [facility] | | [address] | | | - LABORATORY | | [...] + | [facility] | [address] | [place] | [phone] | | [facility] | | [address] | | | - LABORATORY | | [...] [address] | [place] | [phone] | | [facility] | | [address] | | | - LABORATORY | | [...] + | [facility] | [address] | [place] | [phone] | | [facility] | | [address] | | | - LABORATORY | | [...] | | | | | mmol/L | [facility] | [...] mL/min/1.73m2 | [facility] | | | [place]DIAN | RATE,ESTIMATED | | MEDICAL | | | | mL/min/1.68t6Sauz than | | CENTER - | | [...] [address] | [place] | [phone] | | [facility] | | [address] | | | - LABORATORY | | [...] [address] | [place] | [phone] | | [facility] | | [address] | | | - LABORATORY | | [...] + | [facility] | [address] | [place] | [phone] | | [facility] | | [address] | | | - LABORATORY | | [...] [address] | [place] | [phone] | | [facility] | | [address] | | | - LABORATORY | | [...] + | [facility] | [address] | [place] | [phone] | | [facility] | | [address] | | | - LABORATORY | | [...] + | [facility] | [address] | [place] | [phone] | | [facility] | | [address] | | | - LABORATORY | | [...] | mL/min/1.73m2 | [facility] | | | [place]DIAN | RATE,ESTIMATED | | MEDICAL | | | | mL/min/1.76y6Moui than | | CENTER - | | [...] | [address] | [address] | [place] | [phone] | | [facility] | | [address] | | | - LABORATORY | | [...] [address] | [place] | [phone] | | [facility] | | [address] | | | - LABORATORY | | [...] + | [facility] | [address] | [place] | [phone] | | [facility] | | [address] | | | - LABORATORY | | [...] ST. | [address] | [place], [place] | [phone] | | [facility] | | [address] | | | - LABORATORY | | [...] [address] | [place] | [phone] | | [facility] | | [address] | | | - LABORATORY | | [...] + + | Performed at: 02 - [facility] [address] [facility], | REFERENCE LAB | | [place], [place] [id number] Double Backer: Violette Mcconnell MD, Phone: | [facility] - TETE | | [phone] | | + + + + + + + + | Performing | Address | City/State/Zipcode | Phone Number | | Organization | | | | + + + + + | REFERENCE LAB | [address] | [place], [place] | [phone] | | [facility] | Drive [facility] | [address] | | + + + + + [...] + | Performed at: 01 - [place] [address], | REFERENCE LAB | | [place], [place] [id number] Double Backer: Ernie Lee MD, Phone: | [facility] | | [phone] | | + + + + + + + + | Performing | Address | City/State/Zipcode | Phone Number | | Organization | | | | + + + + + | REFERENCE LAB | [address] | [place], [place] | [phone] | | [facility] | [address] | [address] | | + + + + + [...] [address] | [place] | [phone] | | [facility] | | [address] | | | - LABORATORY | | [...] ST. | [address] | [place] | [phone] | | [facility] | | [address] | | | - LABORATORY | | [...] + + + | Performed at: - [facility] [address], | REFERENCE LAB | | [place], [place] [id number] Double Backer: Ernie Lee MD, Phone: | [facility] | | [phone] Performed at: - [address] | | | [place], [place] [id number] Double Backer: Violette Mcconnell MD, | | | Phone: [phone] | | + + + + + + + + | Performing | Address | City/State/Zipcode | Phone Number | | Organization | | | | + + + + + | REFERENCE LAB | [address] | [place], [place] | [phone] | | [facility] | [address]lyn [address] | [address] | | + + + + + [...] [address] | [place] | [phone] | | [facility] | | [address] | | | - LABORATORY | | [...] [address] | [place] | [phone] | | [facility] | | [address] | | | - LABORATORY | | [...] [address] | [place] | [phone] | | [facility] | | [address] | | | - LABORATORY | | [...] ST. | [address] | [place], [place] | [phone] | | [facility] | | [address] | | | - LABORATORY | | [...] mL/min/1.73m2 | [facility] | | | [place]DIAN | RATE,ESTIMATED | | MEDICAL | | | | mL/min/1.15k6Hfqe than | | CENTER - | | [...] [address] | [place] | [phone] | | [facility] | | [address] | | | - LABORATORY | | [...] [address] | [place] | [phone] | | [facility] | | [address] | | | - LABORATORY | | [...] + | [facility] | [address] | [place] | [phone] | | [facility] | | [address] | | | - LABORATORY | | [...] [address] | [place] | [phone] | | [facility] | | [address] | | | - LABORATORY | | [...] [address] | [place] | [phone] | | [facility] | | [address] | | | - LABORATORY | | [...] + | [facility] | [address] | [place] | [phone] | | [facility] | | [address] | | | - LABORATORY | | [...] [address] | [place] | [phone] | | [facility] | | [address] | | | - LABORATORY | | [...] AE | | | | | | NERISAS | | | | | | [...] ST. | [address] | [place], [place] | [phone] | | [facility] | | [address] | | | - LABORATORY | | [...] 7.26 (H) | 0.55 - 1.02 | [facility] | | | | | mg/dL | [...] mL/min/1.73m2 | [facility] | | | [place] | RATE,ESTIMATED | | MEDICAL | | | | mL/min/1.53d9Ftmu than | | CENTER - | | [...] | Critical Result called | | STMarianela UMLTANI | | | | to and read [...] [address] | [place] | [phone] | | [facility] | | [address] | | | - LABORATORY | | [...] + | [facility] | [address] | [place] | [phone] | | [facility] | | [address] | | | - LABORATORY | | [...] [address] | [place] | [phone] | | [facility] | | [address] | | | - LABORATORY | | [...] | | | | | | Marianela [facility] | [...] + | [facility] | [address] | [place] | [phone] | | [facility] | | [address] | | | - LABORATORY | | [...] [address] | [place] | [phone] | | [facility] | | [address] | | | - LABORATORY | | [...] PHYSICIAN: Gopi Muñoz MD PATIENT NAME: | DC PATHOLOGY | | MAYKEL CAMPOSA Tony GENDER: [...] preparation was | | | performed by [email or web address] [address] [facility] | | | [place] [address] and [place] [address] [facility] | | | [place] [address]. Professional interpretation was performed | | | by [email or web address] - [facility] - [address] [facility] | | | [place] [address] (Peel Oven Tender: Alen Simpson, | | | .; IA#:[id number]).8 Diagnostician: Darcie López M.S., | | | KEELY(ASCP), [facility] Modeling Agent Diagnostician: Alen Kearney | | | Calvin [...] + | [facility] [facility] | [address] | [place] | [phone] | | [facility] | | [address] | | | - LABORATORY | | [...] [address] | [place] | [phone] | | [facility] | | [address] | | | - LABORATORY | | [...] [address] | [place] | [phone] | | [facility] | | [address] | | | - LABORATORY | | [...] [address] | [place] | [phone] | | [facility] | | [address] | | | - LABORATORY | | [...] [address] | [place] | [phone] | | [facility] | | [address] | | | - LABORATORY | | [...] St | [place] | | | [facility] | | [address] | | | - BLOOD BANK | [...] | | | | | | [employer] | | | | | [...] [address] | [place] | [phone] | | [facility] | | [address] | | | - LABORATORY | | [...] [address] | [place] | [phone] | | [facility] | | [address] | | | - LABORATORY | | [...] | | | | | | Marianela [facility] | [...] + | [facility] | [address] | [place] | [phone] | | [facility] | | [address] | | | - LABORATORY | | [...] [address] | [place] | [phone] | | [facility] | | [address] | | | - LABORATORY | | [...] [address] | [place] | [phone] | | [facility] | | [address] | | | - LABORATORY | | [...] mL/min/1.73m2 | [facility] | | | [place] | RATE,ESTIMATED | | MEDICAL | | | | mL/min/1.32b1Zubu than | | CENTER - | | [...] + | [facility] | [address] | [place] | [phone] | | [facility] | | [address] | | | - LABORATORY | | [...] + | [facility] [facility] | [address] | [place] | [phone] | | [facility] | | [address] | | | - LABORATORY | | [...] [address] | [place] | [phone] | | [facility] | | [address] | | | - LABORATORY | | [...] | | | | 60 Minutes, ONCE, [facility] 05/25/19 at | | | | | | | 0400, For 1 dose, Activate system | | | | | | | and mix before use., | | | | | | | Indications: Osteomyelitis | | | | | | + +---------+ +--------+-------+---+ +---+---+ | | | +---+---+ documented in this encounter
--- OUTSIDE RECORDS SUMMARY | ~2020-03-21 | XMS | Encounter Summary ---
Demographics + + + | Address | [address] | | | [place] [address] | + + + | Home Phone [...] | [facility] | | | and [place] | + + + | Organization | [facility] | | | and [place] | + + + | Address | Unknown | + + + | Phone | Unavailable | + + + Support + + + + + | Name | Relationship | Address | Phone | + + + + + | India Tilley | ECON | [address] | | | | | [place], [place] | | | | | [address] | | + + + + + [...] Team Providers + +------+ + | Care Supplier Quality Manager Name | Role | Phone | [...] [address] [place] | | | | | [place], [place] | [place] [address] | | | | | [address] | [phone] | | | | | [phone] | | | +--------+ + + + [...]
--- OUTSIDE RECORDS SUMMARY | ~2020-03-21 | XMS | Encounter Summary ---
Demographics + + + | Address | [address] | | | [place] [address] | + + + | Home Phone [...] | [facility] | | | and [place] | + + + | Organization | [facility] | | | and [place] | + + + | Address | Unknown | + + + | Phone | Unavailable | + + + Support + + + + + | Name | Relationship | Address | Phone | + + + + + | India Tilley | ECON | [address] | | | | | [place], [place] | | | | | [address] | | + + + + + [...] Team Providers + +------+ + | Care Transition Rn Name | Role | Phone | [...] + + | 06/27/ | Telephone | [facility] | Ta Melendez, | Appointment | | 2019 | | INTERVENTIONAL | [address] | (schedule) | | | | RADIOLOGY [address] | [address] | | | | | [place] | [place] [address] | | | | | [place] | [phone] | | | | | [address] | | | | | | [phone] | | | +--------+ + + + [...] Miscellaneous Notes Telephone Encounter - Heather Fox, Denier Control Operator - 07/07/2019 1:47 PM PDTCalle d pt back. Scheduled pt for 07/13 at 11:00am start elephone Encounter - Annette Davis I - 1:14 PM PDTDeanna, is calling regarding Appointment (schedule) and would like a call back. Additional Call Details: States patient has been waiting to be scheduled per order on bizsol . Please call patient to schedule. If this is a symptom based call, was patient offered triage? Not Applicable If this is a symptom based call and you were unable to immediately transfer the call to a raul campos gear tooth grinding machine operator was caller made aware that if at [...]
--- OUTSIDE RECORDS SUMMARY | ~2020-03-21 | XMS | Encounter Summary ---
Demographics + + + | Address | [address] | | | [place] [address] | + + + | Home Phone [...] + | Author | [facility] | | | and [place] | + + + | Organization | [facility] | | | and [place] | + + + | Address | Unknown | + + + | Phone | Unavailable | + + + Support + + + + + | Name | Relationship | Address | Phone | + + + + + | India Tilley | ECON | [address] | | | | | [place], [place] | | | | | [address] | | + + + + + [...] Team Providers + +------+ + | Care Carpenter'S Assistant Name | Role | Phone | [...] End stage | Francisca Arellano, | Gopi Roamn DO | | | | | renal | PA-C [address] | [address] | | | | | disease | [address] | | | | | ([facility]) | [place] | [address] | | | | | Procedures | [address] | [place], | | | | | [place] ESRD | [place], | [place] [address] | | | | | RELATED SVC | [place] | Phone: | | | | | MONTHLY | [address] | [phone] | | | | | 20&/> YR OLD | Phone: | Fax: | | | | | 4/> VISITS | [phone] | [phone] | | | | | | Fax: | | | | | | | [phone] | | +--------+--------+ + + + + [...] | unspecified type | | | | [place], [place] | [place] [address] | ([facility]) (Primary Dx); | | | | [address] | [phone] | ESRD (end stage | | | | [phone] | | renal disease) on | | [...]
--- OUTSIDE RECORDS SUMMARY | ~2020-03-21 | XMS | Encounter Summary ---
Demographics + + + | Address | [address] | | | [place] [address] | + + + | Home Phone [...] | [facility] | | | and [place] | + + + | Organization | [facility] | | | and [place] | + + + | Address | Unknown | + + + | Phone | Unavailable | + + + Support + + + + + | Name | Relationship | Address | Phone | + + + + + | India Tilley | ECON | [address] | | | | | [place], [place] | | | | | [address] | | + + + + + [...] Team Providers + +------+ + | Care Riffler Tender Name | Role | Phone | + +------+ + PCP | Unavailable | + +------+ + Encounter Details +--------+ + + + + | Date | Type | Department | Care Team | Description | +--------+ + + + + | 04/10/ | [facility] | [facility] | Patricia, | | | 2006 - | Encounter | [facility] | Venkatesh Forte MD [address] | | | | | CENTER [address] | [address] | | | 04/12/ | | [place] | [place] [address] | | | 2006 | | [address] | [phone] | | | | | [phone] | | | +--------+ + + + [...]
--- OUTSIDE RECORDS SUMMARY | ~2020-03-21 | XMS | Encounter Summary ---
Demographics + + + | Address | [address] | | | [place] [address] | + + + | Home Phone [...] | [facility] | | | and [place] | + + + | Organization | [facility] | | | and [place] | + + + | Address | Unknown | + + + | Phone | Unavailable | + + + Support + + + + + | Name | Relationship | Address | Phone | + + + + + | India Tilley | ECON | [address] | | | | | [place], [place] | | | | | [address] | | + + + + + [...] Team Providers + +------+ + | Care Public Health Aides Teacher Name | Role | Phone | + +------+ + PCP | Unavailable | + +------+ + Encounter Details +--------+ + + + + | Date | Type | Department | Care Team | Description | +--------+ + + + + | 10/07/ | Orders Only | [facility] | Gopi Muñoz | Chronic kidney | | 2018 | | NEPHROLOGY [address] | M, DO [address] | disease, stage V | | | | [address] | [address] [place] | ([facility]) (Primary Dx) | | | | [place] | [place] [address] | | | | | [address] | [phone] | | | | | [phone] | | | +--------+ + + + [...] this encounter Progress Celeste Browning RN - 10/07/2017 9:01 AM PSTLabs for upcoming nephrology appointment [facility] signed by Celeste Butler RN at [...]
--- OUTSIDE RECORDS SUMMARY | ~2020-03-21 | XMS | Encounter Summary ---
Demographics + + + | Address | [address] | | | [place] [address] | + + + | Home Phone [...] | Author | [facility] | | | and [place] | + + + | Organization | [facility] | | | and [place] | + + + | Address | Unknown | + + + | Phone | Unavailable | + + + Support + + + + + | Name | Relationship | Address | Phone | + + + + + | India Tilley | ECON | [address] | | | | | [place], [place] | | | | | [address] | | + + + + + [...] Team Providers + +------+ + | Care Clamp Carrier Operator Name | Role | Phone [...] [place] | | | | | [address] | [address] | | | | | [phone] | | | +--------+ + + + [...]
--- OUTSIDE RECORDS SUMMARY | ~2020-03-21 | XMS | Encounter Summary ---
Demographics + + + | Address | [address] | | | [place] [address] | + + + | Home Phone [...] Author | [facility] | | | and Kamaljitana | + + + | Organization | [facility] | | | and [place] | + + + | Address | Unknown | + + + | Phone | Unavailable | + + + Support + + + + + | Name | Relationship | Address | Phone | + + + + + | India Campos | ECON | [address] | | | | | [place], [place] | | | | | [address] | | + + + + + [...] Providers + +------+ + | Care Air Breaker Operator Name | Role | Phone | [...] | | | | | [address] | [facility] | | | | | [place] | [place] [address] | | | | | [address] | [phone] | | | | | [phone] | | | +--------+---------+ + + + [...] Christina MD - 05/25/2019 11:24 AM PDT [place], [place] HOSPITALIST DISCHARGE SUMMARY Pt. Name/Age/: Ara [...] the setting of ESRD and missing HD LAW CLERK. S/p thoracentesis wit h 1300cc fluid removed, studies c/w transudative effusion. Cytology negative for malignant c ells. No growth on culture thus far. Patient is on room air. Of note, recent echo in March sh owed normal EF. #Hypertensive urgency in the s/o volume overload #ESRD on HD Suspect chronic nonadherence with medications and patient also missed HD LAW CLERK. SBP 200s on a rrival here. Blood pressure improved after HD, resumption of home medications. Amlodipine an d losartan also added, Nephrology will CTM as outpatient. #Acute metabolic encephalopathy Possibly 2/2 medication as patient received 1mg Ativan at OSH LAW CLERK. At baseline currently. #Recent osteomyelitis Patient admitted [...] Nephrology Why: Nephrology follow up Contact information: [address] [place] [address] Condition: stable Diet: renal, cc Greater than 30 minutes were spent on discharge and coordination of post-hospital care. Electronically signed by: Nora Christina MD, 05/25/2019 11:24 [facility] documented in this enco unter Discharge [...] will likely include a biopsy in the [facility] down the line. Nora Christina MD [...] Arthritis, Back pain, Breast cancer ([facility]), Cancer ([facility]), Diabetes ([facility]), Heart disease, Hemodialysis patient ([facility]), History of blood clots, Hypercholesteremia, Hypertensio n, Hypothyroidism, Renal failure, Seasonal allergies, and Stroke (cerebrum) ([facility]). . Risk fa ctors for MDR [...] Culture, Body Fluid, Sterile, Smear, with Anaerobes [[id number]] Collected: 05/22/19 1509 Order Status: Sent Lab Status: In process Updated: 05/22/19 821 Specimen: Body Fluid from Pleural Fluid, Left Narrative: The following orders were created for panel order Culture, Body Fluid, Sterile, Smear, wit h Anaerobes. Procedure Abnormality Status --------- ------ Culture, Body Fluid, Aerobe[[id number]] Preliminary result Culture, Body Fluid, Bre...[[id number]] In process Please view results for these tests on the individual orders. Culture, Fungus, Smear [[id number]] Collected: 05/22/19 1509 Order Status: Sent Lab Status: In process Updated: 05/22/19 1510 Specimen: Body Fluid from Pleural Fluid, Left Culture, Body Fluid, Aerobe [[id number]] Collected: 05/22/19 1509 Order Status: Completed Lab Status: Preliminary result Updated: 05/24/19 1038 Specimen: Body Fluid from Pleural Fluid, Left Culture No growth to date Gram Stain Result 4+ White Blood Cells No organisms seen Culture, Body Fluid, Anaerobe [[id number]] Collected: 05/22/19 1509 Order Status: Resulted Lab Status: In process Updated: 05/22/19 1510 Specimen: Body Fluid from Pleural Fluid, Left Culture, MRSA [[id number]] Collected: 05/20/192021 Order Status: Completed Lab Status: Final result Updated: 05/22/19 0753 Specimen: Tissue from Nares Culture Negative for MRSA by chromogenic agar method. 2+ Coagulase positive Staphylococcus Culture, Blood, 2nd Specimen [[id number]] Collected: 05/18/19 1548 Order Status: Completed Lab Status: Final result Updated: 05/24/19 0546 RESULT NO GROWTH 6 DAYS RESULT Testing performed at [facility];[address] [place] [id number] Comment: Testing performed at [facility], [address] [place] [address] Culture, Blood [[id number]] Collected: 05/18/19 1508 Order Status: Completed Lab Status: Final result Updated: 05/24/19 0546 Specimen: Blood from Antecubital, Right RESULT NO GROWTH 6 DAYS RESULT Testing performed at [facility];[address] [place] [address] Comment: Testing performed at [facility], [address] [place] [address] Culture, Blood [[id number]] Collected: 05/18/19 1447 Order Status: Canceled Lab [...] and htn Prior to admission dialysis schedule: [facility] Vancomycin Dosing in HD patients: Loading [...] ESR, Cxs, case with his previous ID Fleet Coordinator, Dr. Nick Miller MD . He [...] Bx's here. Therefore, shai kearney confer with [facility] IR, outpt. She was agreeable to staying one more nite for HD and clarif y AB regimen. Vanc. /Cefepime were given, IV, during discussion, after reviewing MRI report but before the phone conversation with Dr. Jung. BP control is better. Her Mental status is very clear. Also had HD x 5 hrs, 2K+, 35 HCO3 a nd tolerated well. [facility] Joo Rodriguez C, Gun Number - 05/24/2019 3:46 PM PDT VANCOMYCIN PER PHARMACY PROTOCOL: AMS/Drug Name - Vancomycin Patient: Ara Campos [id number] Admit: 05/20/2019 20:16 RELEVANT ALLERGIES: Amoxicillin 74 yrs old female patient admitted on 05/20/2019 for shortness of breath. Patient is receiv ing vancomycin starting on 05/24/2019 for osteomyelitis. Patient has a past medical histor y of Anemia, Arthritis, Back pain, Breast cancer ([facility]), Cancer (HCC), Diabetes (HCC), Heart disease, Hemodialysis patient (HCC), History of blood clots, Hypercholesteremia, Hypertensio n, Hypothyroidism, Renal failure, Seasonal allergies, and Stroke (cerebrum) ([facility]). . Risk fa ctors for MDR [...] Culture, Body Fluid, Sterile, Smear, with Anaerobes [[id number]] Collected: 05/22/19 1509 Order Status: Sent Lab Status: In process Updated: 05/22/19 5150 Specimen: Body Fluid from Pleural Fluid, Left Narrative: The following orders were created for panel order Culture, Body Fluid, Sterile, Smear, wit h Anaerobes. Procedure Abnormality Status --------- ------ Culture, Body Fluid, Aerobe[[id number]] Preliminary result Culture, Body Fluid, Bre...[[id number]] In process Please view results for these tests on the individual orders. Culture, Fungus, Smear [[id number]] Collected: 05/22/19 150 Order Status: Sent Lab Status: In process Updated: 05/22/19 1510 Specimen: Body Fluid from Pleural Fluid, Left Culture, Body Fluid, Aerobe [[id number]] Collected: 05/22/19 1509 Order Status: Completed Lab Status: Preliminary result Updated: 05/24/19 1038 Specimen: Body Fluid from Pleural Fluid, Left Culture No growth to date Gram Stain Result 4+ White Blood Cells No organisms seen Culture, Body Fluid, Anaerobe [[id number]] Collected: 05/22/19 1509 Order Status: Resulted Lab Status: In process Updated: 05/22/19 1510 Specimen: Body Fluid from Pleural Fluid, Left Culture, MRSA [[id number]] Collected: 05/20/192021 Order Status: Completed Lab Status: Final result Updated: 05/22/19 0753 Specimen: Tissue from Nares Culture Negative for MRSA by chromogenic agar method. 2+ Coagulase positive Staphylococcus Culture, Blood, 2nd Specimen [[id number]] Collected: 05/18/19 1548 Order Status: Completed Lab Status: Final result Updated: 05/24/19 0546 RESULT NO GROWTH 6 DAYS RESULT Testing performed at [facility];[address] [place] [id number] Comment: Testing performed at [facility], [address] [place] [address] Culture, Blood [[id number]] Collected: 05/18/19 1508 Order Status: Completed Lab Status: Final result Updated: 05/24/19 0546 Specimen: Blood from Antecubital, Right RESULT NO GROWTH 6 DAYS RESULT Testing performed at [facility];[address] [place] [id number] Comment: Testing performed at [facility], [address] [place] [address] Culture, Blood [[id number]] Collected: 05/18/19 1447 Order Status: Canceled Lab [...] BP elevated Prior to admission dialysis schedule: [facility] Vancomycin Dosing in HD patients: Loading [...] Monitoring Protocol Electronically signed by: Joo Bo, Gun Number 05/24/2019 15:46Electroni terri signed by Joo Bo, Gun Number at 05/24/2019 4:49 PM Kwame Guerin MD - 05/24/2019 11:04 AM PDTFormatting of this note might be different from the origin al. [facility] IN HOSPITALIST PROGRESS NOTE Patient: Ara Campos : 1945: Age: 74 y.o. MedRec: [id number] Admission date: 05/20/2019 Hospital day # : [...] as patient received 1mg Ativan at OSH LAW CLERK. At baseline currently. #Recent osteomyelitis Patient admitted with T11-12 osteomyelitis and completed 6 weeks vanc/cefepime. Rep eat MRI again redemonstrated possible osteomyelitis - vanc and cefepime have been resumed, Deepa Muñoz is discussing case with ID. #Diabetes Blood sugars at goal. CCM. Patient is again very upset about the food [facility] at the [facility] and is eating little to [...] Subcutaneous 4x D aily WC and HS Oleagrio Peng MD labetalol (NORMODYNE) tablet 300 mg [...] Culture, Body Fluid, Sterile, Smear, with Anaerobes [[id number]] Collected: 05/22/19 1508 Order Status: Sent Lab Status: In process Updated: 05/22/191512 Specimen: Body Fluid from Pleural Fluid, Left Narrative: The following orders were created for panel order Culture, Body Fluid, Sterile, Smear, wit h Anaerobes. Procedure Abnormality Status --------- ------ Culture, Body Fluid, Aerobe[[id number]] Preliminary result Culture, Body Fluid, Bre...[[id number]] In process Please view results for these tests on the individual orders. Culture, Fungus, Smear [[id number]] Collected: 05/22/19 1509 Order Status: Sent Lab Status: In process Updated: 05/22/19 1510 Specimen: Body Fluid from Pleural Fluid, Left Culture, Body Fluid, Aerobe [[id number]] Collected: 05/22/19 150 Order Status: Completed Lab Status: Preliminary result Updated: 05/24/19 1038 Specimen: Body Fluid from Pleural Fluid, Left Culture No growth to date Gram Stain Result 4+ White Blood Cells No organisms seen Culture, Body Fluid, Anaerobe [[id number]] Collected: 05/22/19 1509 Order Status: Resulted Lab [...] rate 6L/min Nora Christina MD 05/24/2019 11:04 [facility] Michelle Solorzano Phar mD - 05/23/2019 [...] ? Pharmacy list names: [facility] ([place]) ? [employer] insurance reported information Vaccines up [...] Tobacco & Alcohol use/frequency: ? Recreational substances: Ubcvwznto-iqfhgyr-rdvb asked how much or how often patient sta rich "I smoke as much as I want" Other: No changes to LAW CLERK list, due to the fact that patient was very non compliant. She either di d not want to take her medications, or she stated that she did not know if she was taking th em. She did not want to do the interview. Best possible LAW CLERK medication list after pharmacy review: Medication review performed and electronically signed by Kerry Jordan, Staffing Consultant 05/23/2019 16:20 Reviewed by Michelle Ochoa PharmD 05/23/2019 18:26 Nora Guerin MD - 05/23/2019 3:20 PM PDT [facility] IN HOSPITALIST PROGRESS NOTE Patient: Ara Campos : 1945: Age: 74 y.o. MedRec: [id number] Admission date: 05/20/2019 Hospital day # : [...] as patient received 1mg Ativan at OSH LAW CLERK. At baseline currently. #Recent osteomyelitis Patient admitted [...] Culture, Body Fluid, Sterile, Smear, with Anaerobes [[id number]] Collected: 05/22/19 1509 Order Status: Sent Lab Status: In process Updated: 05/22/19 151 Specimen: Body Fluid from Pleural Fluid, Left Narrative: The following orders were created for panel order Culture, Body Fluid, Sterile, Smear, wit h Anaerobes. Procedure Abnormality Status --------- ------ Culture, Body Fluid, Aerobe[[id number]] Preliminary result Culture, Body Fluid, Bre...[[id number]] In process Please view results for these tests on the individual orders. Culture, Fungus, Smear [[id number]] Collected: 05/22/19 150 Order Status: Sent Lab Status: In process Updated: 05/22/19 1510 Specimen: Body Fluid from Pleural Fluid, Left Culture, Body Fluid, Aerobe [[id number]] Collected: 05/22/19 150 Order Status: Completed Lab Status: Preliminary result Updated: 05/23/19 09 Specimen: Body Fluid from Pleural Fluid, Left Culture No growth to date Gram Stain Result 4+ White Blood Cells No organisms seen Culture, Body Fluid, Anaerobe [[id number]] Collected: 05/22/19 150 Order Status: Resulted Lab Status: In process Updated: 05/22/191509 Specimen: Body Fluid from Pleural Fluid, Left Culture, MRSA [[id number]] Collected: 05/20/192021 Order Status: Completed Lab Status: [...] rate 0.5L/min Nora Christina MD 05/23/2019 15:20 [facility] documented in this enco unter H&P Notes [...] Class 3 (soft and hard palate clearly) [place] [employer] Anesthesia Grade:ASA 2 - A patient with mild systemic disease Sedation Plan:Moderate VERIFICATION OF CONSENT (PARQ) The patient was counseled regarding the procedure, its indications, risks, potential compli cations and alternatives. Any questions were answered. Consent was obtained. Akash Ashraf MD, 05/23/2019 16:22 [facility] huck Peng MD - 05/20/2019 8:42 PM PDT [facility] [place] HOSPITALIST HISTORY & PHYSICAL Patient: Ara Jimenez Jarek : 1945: Age: 74 y.o. MedRec: [id number] Admission date: 05/20/2019 Hospital day # : [...] is compliant with medications. Patient presented to [facility], patient at that time was requiring 2 LPM with elevated blood pressure 200 systolic. Labs were relatively unremarkable but due to hypoxia was requested be transferred for dialysis. PAST MEDICAL and SURGICAL HISTORY: Past Medical History: Diagnosis Date Anemia Arthritis Back pain Breast cancer (HCC) s/p left mastectomy in 2004, s/p chemotherapy Cancer (HCC) Diabetes (HCC) Heart disease Hemodialysis patient ([facility]) wed-wed-wed History of blood clots Hypercholesteremia Hypertension Hypothyroidism Renal failure Seasonal allergies Stroke (cerebrum) ([facility]) Past Surgical History: Procedure Laterality Date APPENDECTOMY EYE SURGERY 2009 HIP SURGERY Right 12/04/2018 Procedure: ORIF HIP W/CANNULATED SCREWS; Surgeon: Scott Koroma MD; Location: [facility] MAIN OR HYSTERECTOMY MASTECTOMY 2006 left ear NOSE SURGERY 2009 OTHER SURGICAL HISTORY Right 03/28/2019 Procedure: TUNNEL PICC LINE PLACEMENT-6fr 22cm BARD Power Line; Surgeon: Jose Jiménez MD; [facility] INTERVENTIONAL RADIOLOGY REMOVAL TUNNELED CATHETER Right 04/04/[address] Stephenson SHUNT PLACEMENT/INSERTION N/A 11/08/2017 Procedure: Tunneled Hemodialysis Catheter Placement; Surgeon: Nora Leo MD; Location : [facility] MAIN OR SHUNT PLACEMENT/INSERTION Right 02/04/2018 Procedure: INSERTION SHUNT HEMODIALYSIS W/ PERMACATH; Surgeon: Heather Navarro MD; L ocation: [facility] MAIN OR VEIN SURGERY Right 01/04/2018 Procedure: Right Transposed Basilic Vein to Proximal Radial Artery; Surgeon: Santos Stephenson MD, FACS; Location: [facility] MAIN OR FAMILY HISTORY: family history [...] Value Units Date/Time Culture, Blood, 2nd Specimen [[id number]] Collected: 05/18/19 1548 Order Status: Completed Lab Status: Preliminary result Updated: 05/20/19717 RESULT NO GROWTH 2 DAYS RESULT Testing performed at [facility];[place] [address] Comment: Testing performed at [facility], [facility], [place] [address] Culture, Blood [[id number]] Collected: 05/18/19 1508 Order Status: Completed Lab Status: Preliminary result Updated: 05/20/19717 Specimen: Blood from Antecubital, Right RESULT NO GROWTH 2 DAYS RESULT Testing performed at [facility];[place] [address] Comment: Testing performed at [facility], [facility], [place] [address] Radiology results No results found. I reviewed [...] of vancomycin/cefepime. At that time, admitted to [place]. IR aspiration of T11/T12 gram stain/cultures had [...] Renal, Carb PPX: HSQ Disp: PT/OT ordered [facility] Documentation I expect this patient will be hospitalized for greater than 2-midnights and expect the post -hospital plan to be discharge to home or to an adult foster home. Electronically signed by: Olegario Peng MD 05/20/2019 20:42 [facility] documented in this e ncounter Consult Notes Gopi Muñoz DO - 05/21/2019 6:10 PM PDT [facility] [address] [place] [address] NEPHROLOGY CONSULT Pt. Name/Age/: Ara Campos 74 y.o. 1945 Med. Record Number: [id number] Date of admission: 05/20/2019 Reason for consultation: Acute pulmonary edema Referring Provider: ED, [facility], [place]. 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 She skipped her [...] multiple conversations with the charge nurse at [facility], as she almost daily presents with hypertensive [...] 11/03/2017 and then was DC to the [facility] [place], [place]. Unfortunately, she h as had intermittent [...] marked as taking for the 05/20/19 encounter ([facility]). [ Dialysis Clinic suspects that she is [...] has very f requent absenteeism from the [facility]. FAMILY HISTORY: Father: in his [...] effusion? 9. Recent history of osteomyelitis of H97-J15--Lwvt recheck her ESR, CRP. Also will consi jorge repeat imaging although CT of the chest, today, does show some imaging of that reason? PLAN 1. This AM she had 5-hour Nxstage treatment, QB 350, daily 7 L/hour, RLH107, 2K + with UF 4 kg. 2. We will ask radiology to kindly attempt US guided thoracentesis in a.m. with work-up of fluid including protein, LDH, glucose, cell count, differential, AFB, fungal, bacterial kvng dies and cytology. 3. I strongly reinforced the need for a <1000 cc daily fluid restriction. 4. I had a very evelin, thwzt-ig-oduaw discussion with Ara that she is very high risk fo r CVA given her current practice. 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 I told her I think she may be better served moving anna Diaz to more affordable housing, nearby a local [facility] clinic. She states that she will consider this. 5. GI and DVT prophylaxis is already been ordered by the hospitalist service. Appreciate their help. Thank you for the chance to see this very interesting patient. Will follow the patient wit h you. [facility] CC: [facility], [place], [place]. Nick Jung MD, MPH Mat Brooks MD, [facility], [place] ED, [facility]. [facility], [place] documented in thi s encounter Miscellaneous Notes Plan of Care - Sharon Rosado RN - 05/25/2019 2:15 PM PDTThis CM f/u with patient today reg arding all her discharge planning needs. Let patient know that an OP PT OT referral order was sent to [facility] with c all to them letting them know that patient is being discharged today and that an order has b een faxed. Fax transmission with + fax confirmation placed in ghost chart. CM also faxed the order for patient's PICC care weekly to f# [phone] Peralta to sign off so [...] to be compliant with her HD at [facility]. She states that she drives herself there and back. Her sister will be driving her home today, so reminded her to remind her sister to go to he r dialysis treatments and not miss them. This CM also left message with Emili RN, at [facility] letting her know that patient was d ischarged today and that she is being set up with OP therapies and OP Infusions at [facility]. She will continue her OP HD at [facility] in [place]. Requested that Emili start working on the [...] ent. Compliance comes and goes regarding medications. PRINT PRODUCTION MANAGER set her up for shower, but pt did not comply. Currently undergoing dialysis (MWF), VSS, no c/o pain. lan of Sharon Vicente RN - 05/24/2019 4:34 PM PDTThis CM contacted Aleta at [facility] in [place]. She states that patient has been a [...] she needs to keep her appts. Emili [facility], p# [phone], from [facility] called this CM and was segundo [...] herring sport her home tomorrow. Left this marketing copywriter's p# with her. CM to follow. Electronically [...] Therapy Discharge Recommendations are: Recommended discharge disposition: halfway facility Post discharge physical therapy recommendation: will [...] Assistive Device: bed rails Scoot/Bridge, Level of [place]: supervised Supine to Sit, Level of [place]: stand by assist, verbal cues required Sit to Supine, Level of [place]: stand by assist Safety Issues: decreased use [...] STG Status progressing at 05/24/2019 1126 STG [place] Level modified independent at 05/22/2019 1042 STG Assistive Device none at 05/22/2019 1042 Lze-Sarhs-Ffh Goal Most Recent Value STG Status new at 05/22/2019 1042 STG [place] Level modified independent at 05/22/2019 1042 STG Assistive Device 2 wheeled walker (FWW) at 05/22/2019 1042 Gait Goal Most Recent Value STG Status new at 05/22/2019 1042 STG [place] Level modified independent at 05/22/2019 1042 STG [...] 11:11 AM PDTPortions of the avelina luation senior clinical data coordinator were performed and entered by Kimberly Lanza, [...] Mira León RN - 05/22/2019 6:02 PM [id number] Received from [facility]. A&O. R chest PICC intact. Pt remains on fluid restriction. lan of Care - Pita Alexander RN - 05/22/2019 11: 21 AM PDTDischarge Planning: CM to patient room for supportive visit. Patient alert and oriented x 3 and resting comfortably in bed. Patient's son and also her sister [place] ([phone]) present and suppo rtive at bedside. CM verified that patient sees [facility] for primary care, however they current ly do not have a provider so she has been utilizing Dr. Muñoz for any needs. Patient is an ESRD patient who goes to outpatient hemodialysis M,W,F at the [facility] in [place]. Options for discharge discussed. PT/OT are recommending SNF. Patient endorses that s he has been to [place] in the past and is adamant that she not return there. CM discuss ed options for local SNF's in [place]. Patient states she "will have to think about bettye t" and did not zakiya permission for CM to send referrals. Patient does not own her own home , but alternates between staying with her sisters or her son so is unable to commit to a [facility] permanent address for home health services. Patient and her sister came up with idea for outpatient therapies through [facility] at the [facility] in [place]. That way the patient could go to set appointments regard less of where she is staying. CM left sticky note for provider to order. Patient denies any additional questions, concerns, or needs regarding anticipated plan to return home with family in [place] when medically stable. Patient's son or sister shai kearney provide transportation and will be available to assist as needed after discharge. Disposition: Plan A: Home with family support and chronic outpatient HD, and outpatient therapies through [facility] in [place]. Vs Plan B: TBD CM to continue [...] mobilize at level safe for home discharge, [facility] indicating signif icant impairment with basic [...] Therapy Discharge Recommendations are: Recommended discharge disposition: halfway facility Post discharge physical therapy recommendation: will [...] heavily on FWW for support Level of [place]: contact guard assist, verbal cues required Assistive Device: 2 wheeled walker (FWW) Distance (feet): 120 Impairments: impaired balance, pain, strength decreased, postural control impaired, motor c ontrol impaired Transfers cuing for sequencing and safety w/ fair return demo Sit-Stand, Level of [place]: contact guard assist, verbal cues required Stand-Sit, Level of [place]: stand by assist, verbal cues required Gll-Yidnq-Jxd, Assistive Device: 2 wheeled walker (FWW) Safety [...] Assistive Device: bed rails Scoot/Bridge, Level of [place]: supervised Supine to Sit, Level of [place]: stand by assist, verbal cues required Sit to Supine, Level of [place]: stand by assist Safety Issues: decreased use of arms for pushing/pulling, impaired trunk control for bed mo bility, decreased use of legs for bridging/pushing Impairments: strength decreased, impaired balance, postural control impaired Balance Sitting Balance: Static: normal balance Sitting Balance: Dynamic: good balance Standing Balance: Static: fair balance Standing Balance: Dynamic: (fair-) [facility] BASIC MOBILITY Turning from your back [...] Mobility Six Click AM-PAC: 17 Completed the [facility] Activity Measure for Post Acute Care (AM-PAC) "6 Clicks" Ba sic Mobility Inpatient Short Form. This version of the AM-PAC is an assessment tool used to measure a person's level of disability in performing basic mobility tasks. Ara's score indicates a performance of 50.57% impairment in the functioning of basic mobility. Raw Score - Functional Limitation % (for [facility]) - "Severity Modifier" CN 6 - 100.00 [...] STG Status new at 05/22/2019 1042 STG [place] Level modified independent at 05/22/2019 1042 STG Assistive Device none at 05/22/2019 1042 Ngf-Eqidd-Bwn Goal Most Recent Value STG Status new at 05/22/2019 1042 STG [place] Level modified independent at 05/22/2019 1042 STG Assistive Device 2 wheeled walker (FWW) at 05/22/2019 1042 Gait Goal Most Recent Value STG Status new at 05/22/2019 1042 STG [place] Level modified independent at 05/22/2019 1042 STG [...] History of end-stage renal disease (MWF), hypertension, hws-egjlybl-bkkufvzks diabet es, hypothyroidism, anemia of chronic disease, [...] cu es for safety. Grooming, Level of [place]: stand by assist, verbal cues required, set [...] bed rails, HOB elevated Scoot/Bridge, Level of [place]: supervised Supine to Sit, Level of [place]: stand by assist Sit to Supine, Level of [place]: stand by assist Safety Issues: cognitive deficits [...] still attached to monitors. Sit-Stand, Level of [place]: contact guard assist, verbal cues required Stand-Sit, Level of [place]: stand by assist, verbal cues required Rfp-Bsbih-Huk, Assistive Device: none(pt refused using FWW) Safety [...] STG Status new at 05/21/2019 1640 STG [place] Level modified independent at 05/21/2019 1640 Toilet Transfer Goal Most Recent Value STG Status new at 05/21/2019 1640 STG [place] Level modified independent at 05/21/2019 1640 Tub/Shower Transfer Goal Most Recent Value Tub/Shower Type tub/shower combo at 05/21/2019 1640 STG Status new at 05/21/2019 1640 STG [place] Level modified independent at 05/21/2019 1640 Electronically signed by: Kimberly Lanza OT Student, 05/21/2019 17:20 Associated attestation - Daina Dumont OT - 05/21/2019 5:54 PM PDTPortions of the avelina luation senior clinical data coordinator were performed and entered by Kimberly Lanza, [...] Total UF was 4107 mls. lan of Lelia Partida PT - 04/2019 1:46 PM PDTTherapy [...] or CPAP. e states she was at [place] a while ago, she cannot recall how long ago it was. When asked about her PCP she stated she goes to the [facility] clinic and then declined to answer [...] Ashlie Navarro RN - 05/21/2019 8:30 AM [id number] today- Oral meds held until after Hemodialysis [...] Therapy | | | dialysis ([facility]) | | | | | | [...] [address] | [place] | [phone] | | [facility] | | [address] | | | - LABORATORY | | [...] [address] | [place] | [phone] | | [facility] | | [address] | | | - LABORATORY | | [...] 4.14 (H) | 0.55 - 1.02 | [facility] | | | | | mg/dL | [facility] | | | | | | MEDICAL | | | | | | CENTER - | | | | | | LABORATORY | | + + + + + + | eGFR if not | 11 (L)Comment: | >=60 | [facility] | | | | GLOMERULAR FILTRATION | mL/min/1.73m2 | Marianela [facility] | | | MALIAN | RATE,ESTIMATED | | MEDICAL | | | | mL/min/1.39g0Tvdh than | | CENTER - | | [...] [address] | [place] | [phone] | | [facility] | | [address] | | | - LABORATORY | | [...] ST. | [address] | [place], [place] | [phone] | | [facility] | | [address] | | | - LABORATORY | | [...] [address] | [place] | [phone] | | [facility] | | [address] | | | - LABORATORY | | [...] | [address] | [address] | [place] | [phone] | | [facility] | | [address] | | | - LABORATORY | | [...] [address] | [place] | [phone] | | [facility] | | [address] | | | - [...] | | | FILTRATION | mL/min/1.73m2 | [facility] | | | MALIAN | RATE,ESTIMATED | | MEDICAL | | | | mL/min/1.79k3Updu than | | CENTER - | | [...] | | MEDICAL | | | | LIAS Ramos on 05/24/2019 | | CENTER - [...] [address] | [place] | [phone] | | [facility] | | [address] | | | - LABORATORY | | [...] [address] | [place] | [phone] | | [facility] | | [address] | | | - LABORATORY | | [...] | | POC | | | [facility] | | | | | [...] + | [facility] | [address] | [place] | [phone] | | [facility] | | [address] | | | - LABORATORY | | [...] [address] | [place] | [phone] | | [facility] | | [address] | | | - LABORATORY | | [...] [address] | [place] | [phone] | | [facility] | | [address] | | | - LABORATORY | | [...] [address] | [place] | [phone] | | [facility] | | [address] | | | - LABORATORY | | [...] (H) | 9 - 23 mg/dL | [facility] | | | | | | [facility] | | | | | | MEDICAL | | | | | | CENTER - | | | | | | LABORATORY | | + + + + + + | Creatinine | 5.83 (H) | 0.55 - 1.02 | [facility] | | | | | mg/dL | [facility] | | | | | | MEDICAL | | | | | | CENTER - | | | | | | LABORATORY | | + + + + + + | eGFR if not | 7 (L)Comment: GLOMERULAR | >=60 | [facility] | | | | FILTRATION | mL/min/1.73m2 | [facility] | | | MALIAN | RATE,ESTIMATED | | MEDICAL | | | | mL/min/1.08t3Xpaa than | | CENTER - | | [...] [address] | [place] | [phone] | | [facility] | | [address] | | | - LABORATORY | | [...] | | Cells | | M/uL | [facility] | | | | | | MEDICAL | | | | | | CENTER - | | | | | | LABORATORY | | + + + + + + | Hemoglobin | 8.6 (L) | 11.5 - 16.0 | [facility] | | | | | g/dL | [facility] | | | | | [...] + | [facility] | [address] | [place] | [phone] | | [facility] | | [address] | | | - LABORATORY | | [...] [address] | [place] | [phone] | | [facility] | | [address] | | | - LABORATORY | | [...] [address] | [place] | [phone] | | [facility] | | [address] | | | - LABORATORY | | [...] + | [facility] | [address] | [place], [place] | [phone] | | [facility] | | [address] | | | - LABORATORY | | [...] [place], | REFERENCE LAB | | [place] [id number] Line Locator: Violette Mcconnell MD, Phone: | ABBEY - TETE | | [phone] | | + + + + + + + + | Performing | Address | City/State/Zipcode | Phone Number | | Organization | | | | + + + + + | REFERENCE LAB | [address] | [place], [place] | [phone] | | [facility] | [facility] | [address] | | + + + + + [...] + | Performed at: 01 - [facility] [place] [address], | REFERENCE LAB | | [place], [place] [id number] Line Locator: Ernie Lee MD, Phone: | ABBEY EPSTEIN | | [phone] | | + + + + + + + + | Performing | Address | City/State/Zipcode | Phone Number | | Organization | | | | + + + + + | REFERENCE LAB | [address] [facility] | [place], [place] | [phone] | | ABBEY EPSTEIN | [facility] | [address] | | + + + + + [...] [address] | [place] | [phone] | | [facility] | | [address] | | | - LABORATORY | | [...] [address] | [place] | [phone] | | [facility] | | [address] | | | - LABORATORY | | [...] + + | Performed at: 01 - [facility] [address], | REFERENCE LAB | | [place], [place] [id number] Line Locator: Ernie Lee MD, Phone: | [facility] | | [phone] Performed at: - [address] | | | [place], [place] [id number] Line Locator: Violette Mcconnell MD, | | | Phone: [phone] | | + + + + + + + + | Performing | Address | City/State/Zipcode | Phone Number | | Organization | | | | + + + + + | REFERENCE LAB | [address] | [place], [place] | [phone] | | [facility] | [facility] | [address] | | + + + + + [...] [address] | [place] | [phone] | | [facility] | | [address] | | | - LABORATORY | | [...] | [address] [facility] | [address] | [place] | [phone] | | [facility] | | [address] | | | - LABORATORY | | [...] ST. | [address] | [place] | [phone] | | [facility] | | [address] | | | - LABORATORY | | [...] [address] | [place] | [phone] | | [facility] | | [address] | | | - LABORATORY | | [...] 4.82 (H) | 0.55 - 1.02 | [facility] | | | | | mg/dL [...] mL/min/1.73m2 | [facility] | | | MALIAN | RATE,ESTIMATED | | MEDICAL | | | | mL/min/1.29u7Amep than | | CENTER - | | [...] [address] | [place] | [phone] | | [facility] | | [address] | | | - LABORATORY | | [...] | | Cells | | M/uL | [facility] | | | | | | MEDICAL | | | | | | CENTER - | | | | | | LABORATORY | | + + + + + + | Hemoglobin | 8.9 (L) | 11.5 - 16.0 | [facility] | | | | | g/dL | [facility] | | | | | [...] + | [facility] | [address] | [place] | [phone] | | [facility] | | [address] | | | - LABORATORY | | [...] [address] | [place] | [phone] | | [facility] | | [address] | | | - LABORATORY | | [...] [address] | [place] | [phone] | | [facility] | | [address] | | | - LABORATORY | | [...] + | [facility] | [address] | [place] | [phone] | | [facility] | | [address] | | | - [...] [address] | [place] | [phone] | | [facility] | | [address] | | | - [...] [address] | [place] | [phone] | | [facility] | | [address] | | | - LABORATORY | | [address] | [place] | [phone] | | [facility] | | [address] | | | - LABORATORY | | [...] mL/min/1.73m2 | . NERISSA | | | MALIAN | RATE,ESTIMATED | | MEDICAL | | | | mL/min/1.57i2Ifau than | | CENTER - | | [...] + | [facility] | [address] | [place] | [phone] | | [facility] | | [address] | | | - LABORATORY | | [address] | [place] | [phone] | | [facility] | | [address] | | | - LABORATORY | | [address] | [place] | [phone] | | [facility] | | [address] | | | - LABORATORY | | [...] [address] | [place] | [phone] | | [facility] | | [address] | | | - LABORATORY | | [...] [address] | [place] | [phone] | | [facility] | | [address] | | | - [...] | this study were reported [facility]ologist on | | [...] PHYSICIAN: Gopi Muñoz MD PATIENT NAME: | IN PATHOLOGY | | ARA CAMPOS GENDER: F [...] preparation was | | | performed by [facility] [address] [place] [address] | | | [place] [address] and [employer] | | | [place] [address]. Professional interpretation was performed | | | by [facility] - [facility] - [address] | | | . [place] [address] (Floor Clerk: Alen Simpson, | | | .; CLIA#:[id number] Diagnostician: Darcie López M.S., | | | CT([facility]), [facility] Manager Combination Diagnostician: Alen Kearney | | | Calvin [...] [address] | [place] | [phone] | | [facility] | | [address] | | | - LABORATORY | | [...] [address] | [place] | [phone] | | [facility] | | [address] | | | - LABORATORY | | [...] | Marianela [facility] | | | | | | MEDICAL [...] + | [facility] | [address] | [place] | [phone] | | [facility] | | [address] | | | - LABORATORY | | [address] | [place] | [phone] | | [facility] | | [address] | | | - LABORATORY | | [...] [address] | [place] | [phone] | | [facility] | | [address] | | | - LABORATORY | | [...] MEDICAL | | | | | | IMMOKALEE - | | | | | | [...] St | [place] | | | [facility] | | [address] | | | - BLOOD BANK | [...] | | | | | | [employer] | | | | | [...] [address] | [place] | [phone] | | [facility] | | [address] | | | - LABORATORY | | [...] [address] | [place] | [phone] | | [facility] | | [address] | | | - LABORATORY | | [...] [facility] | | | | | | MEDICAL [...] [address] | [place] | [phone] | | [facility] | | [address] | | | - LABORATORY | | [...] + | [facility] | [address] | [place] | [phone] | | [facility] | | [address] | | | - LABORATORY | | [...] | | | Total | | | [facility] | | | | | [...] + | [facility] | [address] | [place] | [phone] | | [facility] | | [address] | | | - LABORATORY | | [...] | | FILTRATION | mL/min/1.73m2 | [facility] | | | MALIAN | RATE,ESTIMATED | | MEDICAL | | | | mL/min/1.47f2Nkpj than | | CENTER - | | [...] | ine Ratio | | | . [facility] | | | | | | MEDICAL [...] [address] | [place] | [phone] | | [facility] | | [address] | | | - LABORATORY | | [address] | [place] | [phone] | | [facility] | | [address] | | | - LABORATORY | | [...] [address] | [place] | [phone] | | [facility] | | [address] | | | - LABORATORY | | [...]
--- OUTSIDE RECORDS SUMMARY | ~2020-03-21 | XMS | Encounter Summary ---
Demographics + + + | Address | [address] | | | [place] [address] | + + + | Home Phone [...] | Author | [facility] | | | and [place]it[place] | + + + | Organization | [facility] | | | and [place] | + + + | Address | Unknown | + + + | Phone | Unavailable | + + + Support + + + + + | Name | Relationship | Address | Phone | + + + + + | India Tilley | ECON | [address] | | | | | [place], [place] | | | | | [address] | | + + + + + [...] Team Providers + +------+ + | Care Diabetes Specialist Name | Role | Phone | [...] | [facility] | [place] [address] | | | | | [place] [address] | | | | | | [phone] | | | +--------+ + + + [...] for comparison only - no result from [facility]. | [facility] | + + + + +---------+ + + | Performing | Address | City/State/Zipcode | Phone Number | | Organization | | | | + +---------+ + + | [facility] | | | | + +---------+ + + documented in this encounter Visit Diagnoses Not on filedocumented in this encounter"
--- OUTSIDE RECORDS SUMMARY | ~2020-03-21 | XMS | Encounter Summary ---
Demographics + + + | Address | [address] | | | [place] [address] | + + + | Home Phone [...] | Author | [facility] | | | and [place] | + + + | Organization | [facility] | | | and [place] | + + + | Address | Unknown | + + + | Phone | Unavailable | + + + Support + + + + + | Name | Relationship | Address | Phone | + + + + + | India Tilley | ECON | [address] | | | | | [place], [place] | | | | | [address] | | + + + + + [...] Providers + +------+ + | Care Information Assistant Name | Role | Phone | + +------+ + PCP | Unavailable | + +------+ + Encounter Details +--------+ + + + + | Date | Type | Department | Care Team | Description | +--------+ + + + + | 12/20/ | [facility] | [facility] | Patricia, | | | 2008 - | Encounter | [facility] | Venkatesh Forte MD [address] | | | | CENTER [address] | [place] | | | 01/10/ | | [place] | [place] [address] | | | 2008 | | [address] | [phone] | | | | | [phone] | | | +--------+ + + + [...]
--- OUTSIDE RECORDS SUMMARY | ~2020-03-21 | XMS | Encounter Summary ---
Demographics + + + | Address | [address] | | | [place] [address] | + + + | Home Phone [...] Author | [facility] | | | and [place] | + + + | Organization | [facility] | | | and [place] | + + + | Address | Unknown | + + + | Phone | Unavailable | + + + Support + + + + + | Name | Relationship | Address | Phone | + + + + + | India Tilley | ECON | [address] | | | | | [place], [place] | | | | | [address] | | + + + + + [...] Team Providers + +------+ + | Care Deployment Engineer Name | Role | Phone | [...] + + | 03/09/ | Telephone | [facility] | CarlosSantos | Other (appointment) | | 2018 | | SURGERY [address] | MD Kinga, FACS [address] | | | | [address] [place], [place] | [facility] | | | | | [address] | [place] [address] | | | | | [phone] | [phone] | | | | | | | [...] 03/09/2018 9:34 AM PDTSpoke with patient to [facility] with Dr Stephenson 03/10/19 at 0910, patient stated she drives from [place] and that 0910 is early for her, she wasn't sure if she could make it, call was then disconnected, I returned call but was unable to reach patient. documented in this encounter Plan of Treatment Not on filedocumented as of this encounter Visit Diagnoses Not on filedocumented in this encounter"
--- OUTSIDE RECORDS SUMMARY | ~2020-03-21 | XMS | Encounter Summary ---
Demographics + + + | Address | [address] | | | [place] [address] | + + + | Home Phone [...] Author | [facility] | | | and [place]al[place]it[place] | + + + | Organization | [facility] | | | and [place] | + + + | Address | Unknown | + + + | Phone | Unavailable | + + + Support + + + + + | Name | Relationship | Address | Phone | + + + + + | India Tilley | ECON | [address] | | | | | [place], [place] | | | | | [address] | | + + + + + [...] Team Providers + +------+ + | Care Methodologist Name | Role | Phone | + [...] [address] [place] | | | | | [place], [place] | [place] [address] | | | | | [address] | [phone] | | | | | [phone] | | | +--------+ + + + [...] labs have not been completed. I contacted [facility] and left a voice mail message for susan [email or web address] to let her know what happened.Electronically signed by Tatiana castillo 06/01/2017 10:17 AM PDTdocumented in this encounter Plan of Treatment Not on filedocumented as of this encounter Visit Diagnoses Not on filedocumented in this encounter"
--- OUTSIDE RECORDS SUMMARY | ~2020-03-21 | XMS | Encounter Summary ---
Demographics + + + | Address | [address] | | | [place] [address] | + + + | Home Phone [...] Author | [facility] | | | and [place] | + + + | Organization | [facility] | | | and [place] | + + + | Address | Unknown | + + + | Phone | Unavailable | + + + Support + + + + + | Name | Relationship | Address | Phone | + + + + + | India Tilley | ECON | [address] | | | | | [place], [place] | | | | | [address] | | + + + + + [...] Team Providers + +------+ + | Care Configuration Developer Name | Role | Phone | [...] | | [place] | [place] [address] | | | | | [address] | [phone] | | | | | [phone] | | | +--------+ + + + [...]
--- OUTSIDE RECORDS SUMMARY | ~2020-03-21 | XMS | Encounter Summary ---
Demographics + + + | Address | [address] | | | [place] [address] | + + + | Home Phone [...] Author | [facility] | | | and Kamaljitana | + + + | Organization | [facility] | | | and [place] | + + + | Address | Unknown | + + + | Phone | Unavailable | + + + Support + + + + + | Name | Relationship | Address | Phone | + + + + + | India Tilley | ECON | [phone] | | | | | [place], [place] | | | | | [address] | | + + + + + [...] Providers + +------+ + | Care Web Feeder Name | Role | Phone | [...] | (HCC) | [place], | [place] [address] | | | | | | [place] [address] | Phone: | | | | | | Phone: | [phone] | | | | | | [phone] | Fax: | | | | | | Fax: | [phone] | | | | | | [phone] | | +--------+ + + + + + Encounter Details +--------+---------+ + + + | Date | Type | Department | Care Team | Description | +--------+---------+ + + + | 12/30/ | Office | [facility] | Santos Stephenson | Chronic kidney | | 2018 | Visit | SURGERY [address] | MD Kinga, FACS [address] | disease, stage V | | | | [address] [place], [place] | [facility] | (HCC) (Primary Dx) | | | | [address] | [place] [address] | | | | | [phone] | [phone] | | | | | | | [...] Same Day Surgery (corner of [address]) at 12:00pm. Your surgery is called AV [...] successful and comfortable surgery. Sign up for Compario if you want easy access to your medical information online. You can: Review your medications, immunizations, allergies and medical history. View details of your past and upcoming appointments. Sign up for Compario if you want easy access to your medical information online. Only you, your doctor and your health care team are permitted to view the information sent through [employer]. Through Compario you can: ? Review your medications, immunizations, [...] different ways you can sign up for Compario: ? The first way is to get online at: [email or web address] and sign up directly throug h the website prior to your appointment with us. You can call [phone] ([phone]) if you have any questions or need assistance. ? The second way is through the Compario lyudmila which can be accessed with any smart phone. Ju go to your lyudmila store and look up [email or web address]. ? The third way is to do [...] encounter Progress Notes Field, Santos Donato MD, [facility] - 12/30/2017 10:00 AM PDTFormatting of this [...] ? Francisca Womack PA-C Who is your Seating Captain/Kidney Specialist ? Dr. Muñoz When was the [...] dialysis on Wednesday, Wednesday and Fridays in [place]. She states she has had breast cancer, had a LEFT side mastectomy. CARDIAC: Denies SC, chest pain or tightness. RISK: Never smoker, current 38 year diabetic. Family Hx of diabetes. States mother had kid cedric failure NICO: Patient has previously been diagnosed with sleep apnea. She had a sleep study performe d at [facility] but does not wear a [...] Nora Leo MD; Location : [facility] MA[facility] OR Allergies Allergen Reactions Lisinopril [...] motor ULTRASOUND REPORT: PATIENT NAME : Estefani Tillye EQUIPMENT: SonPATHSENSORSte M-Turbo with 10-5 mHertz probe. INDICATIONS: Dialysis [...]
--- OUTSIDE RECORDS SUMMARY | ~2020-03-21 | XMS | Encounter Summary ---
Demographics + + + | Address | [address] | | | [place] [address] | + + + | Home Phone [...] + | Author | [facility] | | | and Kamaljitana | + + + | Organization | [facility] | | | and [place] | + + + | Address | Unknown | + + + | Phone | Unavailable | + + + Support + + + + + | Name | Relationship | Address | Phone | + + + + + | India Tilley | ECON | [address] | | | | | [place], [place] | | | | | [address] | | + + + + + [...] Team Providers + +------+ + | Care Multimedia Artist Name | Role | Phone | + +------+ + PCP | Unavailable | + +------+ + Encounter Details +--------+ + + + + | Date | Type | Department | Care Team | Description | +--------+ + + + + | 07/22/ | [facility] | [facility] | Gopi Muñoz | | | 2005 | Encounter | MED CTR XRAY [address] | M, DO [address] | | | | | [place] | [facility] [address] [place] | | | | | [place] [address] | [place] [address] | | | | | [phone] | [phone] | | | | | | | [...]
--- OUTSIDE RECORDS SUMMARY | ~2020-03-21 | XMS | Encounter Summary ---
Demographics + + + | Address | [address] | | | [place] [address] | + + + | Home Phone [...] + | Author | [facility] | | | and Kamaljitana | + + + | Organization | [facility] | | | and [place] | + + + | Address | Unknown | + + + | Phone | Unavailable | + + + Support + + + + + | Name | Relationship | Address | Phone | + + + + + | India Tilley | ECON | [address] | | | | | [place], [place] | | | | | [address] | | + + + + + [...] Providers + +------+ + | Care Agricultural Production Engineer Name | Role | Phone | [...] | | | | [place] | [address] | | | | | [address] | | | | | | [phone] | | | +--------+ + + + [...]
--- OUTSIDE RECORDS SUMMARY | ~2020-03-21 | XMS | Encounter Summary ---
Demographics + + + | Address | [address] | | | [place] [address] | + + + | Home Phone [...] + | Author | [facility] | | | and Kamaljitana | + + + | Organization | [facility] | | | and [place] | + + + | Address | Unknown | + + + | Phone | Unavailable | + + + Support + + + + + | Name | Relationship | Address | Phone | + + + + + | India Tilley | ECON | [phone] | | | | | [place], [place] | | | | | [address] | | + + + + + [...] Providers + +------+ + | Care Manager Hematology Name | Role | Phone | + [...] | | | | renal | [place] [address] | [address] | | | | | disease | | [address] | | | | | (HCC) | [address] | [address] | | | | | Procedures | WAY | [place], | | | | | [place] OFFICE | [place], | [place] [address] | | | | | OUTPATIENT | [place] [address] | Phone: | | | | | VISIT 25 | Phone: | [phone] | | | | | MINUTES | [phone] | Fax: | | | | | | Fax: | [phone] | | | | | | [phone] | | +--------+--------+ + + + + [...] | [place], JA | [place] [address] | | | | | [address] | [phone] | | | | | [phone] | | | +--------+ + + + [...] Will recheck her in 2 weeks. : [facility] [place]. Santos Stephenson MD, [facility] documented in thi s encounter Plan of Treatment Not on filedocumented as of this encounter Visit Diagnoses + + | Diagnosis | + + | End stage renal disease (HCC) - Primary End stage renal disease | + + documented in this encounter"
--- OUTSIDE RECORDS SUMMARY | 2020-03-21 14:04 | XMS ---
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 General Sales Events No recent Security Events currently on file CRITERIA MET - Group Notification - PDMP CARE PROVIDERS YVETTE SEBASTIAN Physician Comfort Station Attendant: Surgical 11/23/2018-Current PHONE: Unknown Name Unknown Snf Facility Current PHONE: [phone] Carolina Taylor Batch Or Continuous Still Operator/Medical Practitioners 02/29/2020-Current PHONE: [phone] PRITESH TAYLOR [facility] 09/11/2019-Current PHONE: [phone] RUI HODGE [facility] 10/03/2018-Current PHONE: Unknown PUJA IVEY Nurse Practitioner 04/04/2019-Current PHONE: [phone] Name [facility] 07/28/2019-Current PHONE: [phone] Bertrand has no Care Guidelines for this patient. Care History Medical/Surgical 09/11/2019 [facility] -PATIENT CURRENTLY RECEIVING DIALYSIS TREATMENT- 3 X A WEEK- WEDNESDAY, WEDNESDAY, WEDNESDAY. -DIALYSIS CLINIC IS OPEN ON WEDNESDAY. 07/28/2019 [facility] \T\middot;\T\nbsp; PATIENT- [facility] ELIGIBLE \T\middot;\T\nbsp; PLEASE REFER PATIENT TO [facility] FOR NON EMERGENT MEDICAL NEEDS. \T\middot;\ T\nbsp; [facility] CAN SEE PATIENTS SAME DAY FOR APTS IF PATIENT CALLS FIRST THING IN THE MORNING. [facility] (12 MO.) [facility] TOTAL 14 NOTE: Visits indicate total known visits. ED/UCC VISIT TRACKING (12 MO.) 03/21/2020 14:01 [facility] [place] TYPE: Emergency COMPLAINT: - RT HIP PAIN [facility] DIAGNOSES: - Dependence on renal dialysis - Acute embolism and thrombosis of unspecified vein - Problem related to unspecified psychosocial circumstances - End stage renal disease - Localized edema - leg pain - Hypoxemia 10/30/2019 11[facility] [place] [facility] DIAGNOSES: - SOB - Heart failure, unspecified - Pleural effusion, not elsewhere classified - Shortness of Breath - Chest Pain - Other specified abnormal findings of blood chemistry 09/18/2019 13:50 [facility]: Emergency DIAGNOSES: - Dependence on renal dialysis - Localized edema - End stage renal disease - Type 2 diabetes mellitus with diabetic chronic kidney disease - Chronic kidney disease, stage 4 (severe) - Dependence on renal dialysis - Hypothyroidism, unspecified - group home (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 - Shortness of Breath - End stage renal disease - Fluid overload, unspecified - Dyspnea, unspecified - Pleural effusion, not elsewhere classified - Edema/SOB 09/08/2019 12:20 [facility] [place] TYPE: Emergency COMPLAINT: - RETAINING FLUID DIAGNOSES: - Allergy status to other drugs, medicaments and biological sub - Chronic kidney disease, unspecified - Major depressive disorder, single episode, unspecified - Hypothyroidism, unspecified - Type 2 diabetes mellitus with diabetic neuropathy, unspecifie - Dependence on renal dialysis - Allergy status to analgesic agent status - terminal operator (current) use of aspirin - Atherosclerotic heart disease of [place] coronary artery witho - Type 2 diabetes mellitus with diabetic chronic kidney disease - Other specified soft tissue disorders - Hypertensive chronic kidney disease with stage 1 through stag - Personal history of nicotine dependence - Other adjunct faculty for medical terminology (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 08/24/2019 16:39 [facility] [place] TYPE: Emergency COMPLAINT: - COUGH, N/V, DIARRHEA DIAGNOSES: - Hypothyroidism, unspecified - Major depressive disorder, single episode, unspecified - 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 - Type 2 diabetes mellitus with diabetic chronic kidney disease - Viral infection, unspecified - Other adjunct faculty for medical terminology (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 - Type 2 diabetes mellitus with diabetic neuropathy, unspecifie - Hyperkalemia - Cough - End stage renal disease - Dependence on renal dialysis 07/27/2019 14:47 [facility] [place] TYPE: Emergency COMPLAINT: - SOB DIAGNOSES: - Allergy status to analgesic agent status - Allergy status to other drugs, medicaments and biological sub - Shortness of breath - Type 2 diabetes mellitus with diabetic neuropathy, unspecifie - Hypothyroidism, unspecified - terminal operator (current) use of aspirin - Major depressive disorder, single episode, unspecified - Essential (primary) hypertension - Pleural effusion, not elsewhere classified - Atherosclerotic heart disease of [place] coronary artery witho - Other adjunct faculty for medical terminology (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 TYPE: Emergency DIAGNOSES: - End stage renal disease - Difficulty Breathing - Hyperkalemia - Shortness of Breath 05/20/2019 15:22 [facility] [place] TYPE: Emergency COMPLAINT: - SOB DIAGNOSES: - End stage renal disease - Allergy status to analgesic agent status - Shortness of breath - Personal history of malignant neoplasm of breast - Allergy status to other drugs, medicaments and biological sub - Dependence on renal dialysis - Allergy status to other anti-infective agents status - group home (current) use of aspirin - Type 2 diabetes mellitus with diabetic cataract - Hypertensive heart and chronic kidney disease with heart fail - Other adjunct faculty for medical terminology (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 - Type 2 diabetes mellitus with diabetic neuropathy, unspecifie - Heart failure, unspecified 05/01/2019 08:41 [facility] [place] TYPE: Emergency COMPLAINT: - HIGH BP DIAGNOSES: - terminal operator (current) use of aspirin - Essential (primary) hypertension - Hypothyroidism, unspecified - Elevated C-reactive protein (CRP) - Dependence on renal dialysis - Allergy status to other drugs, medicaments and biological sub - Personal history of transient ischemic attack (TIA), and cere - Personal history of malignant neoplasm of breast - Major depressive disorder, single episode, unspecified - Type 2 diabetes mellitus with diabetic neuropathy, unspecifie - Type 2 diabetes mellitus with diabetic cataract - Other adjunct faculty for medical terminology (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 - Allergy status to analgesic agent status 04/27/2019 02:37 [facility] [place] TYPE: Emergency COMPLAINT: - MULTIPLE COMPLAINT DIAGNOSES: - Unspecified injury of head, initial encounter - terminal operator (current) use of aspirin - Hypothyroidism, unspecified - Dependence on renal dialysis - Strain of muscle, fascia and tendon at neck level, initial en - Type 2 diabetes mellitus with diabetic neuropathy, unspecifie - Contusion of unspecified part of head, initial encounter - Essential (primary) hypertension - Allergy status to analgesic agent status - Type 2 diabetes mellitus with diabetic cataract - Concussion without loss of consciousness, initial encounter - Other nursing home (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 - Fall on same level from slipping, tripping and stumbling with - Personal history of malignant neoplasm of breast - Allergy status to other drugs, medicaments and biological sub 04/04/2019 17:35 [facility] [place] TYPE: Emergency COMPLAINT: - SHAKY,ALTERED LOC DIAGNOSES: - Allergy status to other drugs, medicaments and biological sub - Weakness - Personal history of malignant neoplasm of breast - Other nursing home (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 - Type 2 diabetes mellitus with diabetic neuropathy, unspecifie - Hypothyroidism, unspecified - 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 - Allergy status to analgesic agent status - Type 2 diabetes mellitus with diabetic chronic kidney disease - Type 2 diabetes mellitus with diabetic cataract - Dependence on renal dialysis - Personal history of transient ischemic attack (TIA), and cere - group home (current) use of aspirin - End stage renal disease - Major depressive disorder, single episode, unspecified 04/03/2019 14:36 [facility] TYPE: Emergency COMPLAINT: - WEAKNESS DIAGNOSES: - Hypothyroidism, unspecified - Allergy status to analgesic agent status - Other adjunct faculty for medical terminology (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 - Allergy status to other drugs, medicaments and biological sub - Essential (primary) hypertension - group home (current) use of aspirin - Type 2 diabetes mellitus with diabetic neuropathy, unspecifie - Weakness - Type 2 diabetes mellitus with diabetic cataract - Personal history of transient ischemic attack (TIA), and cere - Personal history of malignant neoplasm of breast 03/23/2019 17:03 [facility] TYPE: Emergency DIAGNOSES: - Pain in thoracic spine - Osteomyelitis, unspecified - back pain - Rib Pain - Discitis, unspecified, site unspecified INPATIENT VISIT TRACKING (12 MO.) 01/18/2020 15:03 [facility] DIAGNOSES: - Patient's noncompliance with other medical treatment and cindy - Cellulitis of left orbit - Acute embolism and thrombosis of unspecified vein - Unspecified osteoarthritis, unspecified site - Personal history of malignant neoplasm of breast - Disorder of lipoprotein metabolism, unspecified - Unspecified right bundle-branch block - Other seasonal allergic rhinitis - Osteomyelitis of vertebra, thoracic region - Disorder of kidney and ureter, unspecified - Hypoxemia - Problem related to unspecified psychosocial circumstances - Essential (primary) hypertension - Personal history of other venous thrombosis and embolism - Cannabis use, unspecified, uncomplicated - Other specified health status - Cellulitis of left lower limb - Influenza due to other identified influenza virus with other - Type 2 diabetes mellitus without complications - Hypothyroidism, unspecified - Chronic kidney disease, stage 4 (severe) - Localized edema - End stage renal disease - Cerebral infarction due to unspecified occlusion or stenosis - Pleural effusion, not elsewhere classified - Discitis, unspecified, thoracic region - Gastro-esophageal reflux disease without esophagitis - Pulmonary hypertension, unspecified - Hyperlipidemia, unspecified - Cellulitis of face - Heart disease, unspecified - Dependence on renal dialysis - Secondary multiple arthritis - Malignant (primary) neoplasm, unspecified - Other chronic pain - Anemia in chronic kidney disease - Major depressive disorder, single episode, unspecified - Fluid overload, unspecified - Secondary hyperparathyroidism of renal origin 10/31/2019 02:13 [facility] [place] TYPE: Medical Surgical DIAGNOSES: 0. Pyothorax without fistula 1. Pyothorax without fistula 1. Shortness of breath 2. End stage renal disease 3. Influenza due to other identified influenza virus with other 4. Pneumonia due to other streptococci 5. Acute respiratory failure with hypoxia 6. Toxic encephalopathy 7. Myocardial infarction type 2 8. Unspecified severe protein-calorie malnutrition 9. 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 10. Hemorrhage due to vascular prosthetic devices, implants and g 11. Acute kidney failure, unspecified 12. Atelectasis 13. Hypo-osmolality and hyponatremia 14. Type 2 diabetes mellitus with diabetic chronic kidney disease 15. Dependence on renal dialysis 16. terminal operator (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 17. Homelessness 18. Atherosclerotic heart disease of [place] coronary artery witho 19. Personal history of malignant neoplasm of breast 20. Hyperlipidemia, unspecified 21. Pleurodynia 22. Other chronic pain 23. Anemia in chronic kidney disease 24. Polyosteoarthritis, unspecified 25. Personal history of transient ischemic attack (TIA), and cere 26. Hypothyroidism, unspecified 27. Other disorders of phosphorus metabolism 28. Other disorders of electrolyte and fluid balance, not elsewhe 29. Pressure-induced deep tissue damage of sacral region 09/18/2019 13:50 [place] [facility] TYPE: Medical Surgical DIAGNOSES: - Type 2 diabetes mellitus with diabetic chronic kidney disease - Pleural effusion, not elsewhere classified - Dependence on renal dialysis - terminal operator (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 - End stage renal disease - Acute combined systolic (congestive) and diastolic (congestiv - Fluid overload, unspecified - Localized edema - Dyspnea, unspecified - Hypothyroidism, unspecified - End stage renal disease - Chronic kidney disease, stage 4 (severe) - Dependence on renal dialysis 06/20/2019 05:00 [facility] TYPE: Cardiology DIAGNOSES: - Hyperkalemia - Hyperkalemia - Other fluid overload 05/20/2019 20:16 [facility] DIAGNOSES: - Osteomyelitis of vertebra, thoracic region - Left ventricular failure, unspecified - End stage renal disease - Dependence on renal dialysis - Hypoxemia - CHF - Type 2 diabetes mellitus with diabetic chronic kidney disease - Anemia in chronic kidney disease - Chronic kidney disease, stage 4 (severe) - Essential (primary) hypertension - Hypertensive urgency - terminal operator (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 03/24/2019 00:55 [facility] TYPE: Nephrology DIAGNOSES: - Dependence on renal dialysis - End stage renal disease - Essential (primary) hypertension - Osteomyelitis, unspecified - Type 2 diabetes mellitus with diabetic chronic kidney disease - group home (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 - Chronic kidney disease, stage 4 (severe) - Secondary multiple arthritis - Discitis, unspecified, thoracic region [email or web address]
[2020-03-21] MEDS ORDERED: OXYCODONE HCL5 MG PO (18:02)
--- NOTE | 2020-03-23 09:10 | EKG ---
[facility] [address] [facility] [place] [address] Signed Sinus bradycardia with premature atrial complexes Right bundle branch block Left posterior fascicular block Bifascicular block Abnormal ECG When compared with ECG of 27-JUL-2019 15:32, premature atrial complexes are now present ME interval has increased Nonspecific T wave abnormality has replaced inverted T waves in Anterior leads T wave amplitude has decreased in Lateral leads Confirmed by GRACIELA GONZALES MD ([id number]) on 03/23/2020 9:09:52 AM Electronically Signed By: GRACIELA GONZALES MD 03/23/2010 PATIENT NAME: ARA CAMPOS Electrocardiogram DATE OF : 47 PHYSICIAN: GRACIELA GONZALES MD REPORT #: [id number] REPORT IS CONFIDENTIAL AND NOT TO BE RELEASED WITHOUT AUTHORIZATION
== END 2020-03-21 18:47 | disposition home or self-care (01) ==
LOC: ED 14:01
DX: S32.591A Other specified fracture of right pubis, initial encounter for closed fracture (principal); E87.1 Hypo-osmolality and hyponatremia; E11.22 Type 2 diabetes mellitus with diabetic chronic kidney disease; I12.0 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 or end stage renal disease; N18.6 End stage renal disease; E03.9 Hypothyroidism, unspecified; E11.40 Type 2 diabetes mellitus with diabetic neuropathy, unspecified; I10 Essential (primary) hypertension; Z87.891 Personal history of nicotine dependence; Z88.8 Allergy status to other drugs, medicaments and biological substances; Z79.899 Other long term (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; X58.XXXA Exposure to other specified factors, initial encounter
CPT/HCPCS: 70450; 72125; 73502; 73700; 80053; 83735; 84484; 85025; 93005; 93010; 96374; 96375; 96376; 99284-25; J2270; J3010

== ENCOUNTER 2020-03-23 18:14 | Emergency (ER) | payer MEDICARE, OTHER ==
[~2020-03-23] VITALS: Ht 172.7 cm; Wt 74.8 kg
--- OUTSIDE RECORDS SUMMARY | ~2020-03-23 | XMS | Encounter Summary ---
Demographics + + + | Address | [address] | | | [place] [address] | + + + | Home Phone | | + + + | Preferred Language | Unknown | + + + | Marital Status | Single | + + + | Rastafari Affiliation | Unknown | + + + | Race | Unknown | + + + | Ethnic Group | Unknown | + + + Author + + + | Author | [facility] | | | and Kamaljitana | + + + | Organization | [facility] | | | and [place] | + + + | Address | Unknown | + + + | Phone | Unavailable | + + + Support + + + + + | Name | Relationship | Address | Phone | + + + + + | India Tilley | ECON | [address] | | | | | [place], [place] | | | | | [address] | | + + + + + [...] Team Providers + +------+ + | Care Window Display Designer Name | Role | Phone | + +------+ + PCP | Unavailable | + +------+ + Encounter Details +--------+ + + + + | Date | Type | Department | Care Team | Description | +--------+ + + + + | 07/26/ | Hospital | [facility] | Anna Banegas MD | Unspecified Backache | | 2006 | Encounter | [address] | | | | | [address] | [place] | | | | | [place], [place] | [address] | | | | | [address] | | | | | | [phone] | | | +--------+ + + + [...] + | Diagnosis | + + | Backache, unspecified | + + documented in this encounter"
--- OUTSIDE RECORDS SUMMARY | ~2020-03-23 | XMS | Encounter Summary ---
Demographics + + + | Address | [address] | | | [place] [address] | + + + | Home Phone | | + + + | Preferred Language | Unknown | + + + | Marital Status | Single | + + + | Caodaism Affiliation | Unknown | + + + | Race | Unknown | + + + | Ethnic Group | Unknown | + + + Author + + + | Author | Merged With [facility] | | | and [facility] | + + + | Organization | Merged With [facility] | | | and [place] | + + + | Address | Unknown | + + + | Phone | Unavailable | + + + Support + + + + + | Name | Relationship | Address | Phone | + + + + + | India Tilley | ECON | [id number] | | | | | [place], [place] | | | | | [address] | | + + + + + [...] + + + + + | Lisa Ibarra | ECON | Unknown | | + + + + + Care Team Providers + +------+ + | Care Upholsterer Inside Name | Role | Phone | + +------+ + | Renato Pierson | PCP | | + +------+ + Reason for Visit Evaluate & Treat (Routine) +--------+--------+ + + + + | Status | Reason | Specialty | Diagnoses / | Referred By | Referred To | | | | | Procedures | Contact | Contact | +--------+--------+ + + + + | Closed | | Nephrology | Diagnoses | Vu, | Toni, | | | | | End stage | Francisca H, | Gopi Roman, | | | | | renal | PA-C [address] | [address] | | | | disease | [address] | | | | | (HCC) | [place] | [address] | | | | | Procedures | [address] | [place], | | | | | ID ESRD | [place], | [place] [address] | | | | | RELATED SVC | [place] | Phone: | | | | | MONTHLY | [address] | [phone] | | | | | 20&/> YR OLD | Phone: | Fax: | | | | | 4/> VISITS | [phone] | [phone] | | | | | | Fax: | | | | | | | [phone] | | +--------+--------+ + + + + Encounter Details +--------+ + + + + | Date | Type | Department | Care Team | Description | +--------+ + + + + | 09/04/ | Off-Site | [facility] [place] | Gopi Muñoz | ESRD (end stage | | 2019 | Visit | NEPHROLOGY [address] | M, DO [address] | renal disease) on | | | | [address] | [address] [place] | dialysis (HCC) | | | | [place], [place] | [place] [address] | (Primary Dx) | | | | [address] | [phone] | | | | | [phone] | | | +--------+ + + + [...] + + + | Blood Pressure | 150/66 | 09/04/2019 5:33 PM | | | | | PST | | + + + + + | Pulse | - | - | | + + + + + | Temperature | 36.7 C (98.1 F) | 09/04/2019 5:33 PM | | | | | PST | | + + + + + [...] + documented as of this encounter Progress Gopi Pugh DO - 09/04/2019 11:00 AM PST Subjective: DIALYSIS NOTE Patient ID: Estefani Tilley is a 74 y.o. female. HPI Comments: [Patient was actually seen on 08/21/2019]. 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 Unfortunately due to unclear reasons Estefani is plagued with nonadhe rence and intermittent absence from her scheduled dialysis treatments. This has culminate d in worsening peripheral edema. She is mostly very labile and frequently becomes upset at the end of her treatments developed some anxiety and signs out AMA. PAST MEDICAL HISTORY: 1. ESRD 2 diabetic glomerulosclerosiswith the patient beginning Inpt HD in 018and then was DC to [facility] at [place], [place]. Unfortunat brandy, she has had intermittent [...] unknown duration, she is not completely sure. Outpatient Medications Marked as Taking for the 09/04/19 encounter (Appointment) with Merari Muñoz, DO Medication Sig Dispense Refill albuterol 90 mcg/puff inhaler Inhale 2 puffs into the lungs 4 times daily as needed for Shortness of Breath. amLODIPine (NORVASC) 5 mg tablet Take 1 tablet by mouth 2 times daily. 90 tablet [address] ARTIFIC[address] SOLUTION [address] 1-2 drops into both eyes as needed (for dry eyes). aspirin 81 mg EC tablet Take 81 mg by mouth Daily. atorvaSTATin (LIPITOR) 20 mg tablet Take 20 mg by mouth nightly. b complex-vitamin c-folic acid (NEPHRO-MANUEL) tablet Take 1 tablet by mouth Daily. calcium acetate (CALCIUM ACETATE) 667 mg capsule Take 1 capsule by mouth 4 times daily (before meals and nightly). 180 capsule 0 cetirizine (ZYRTEC) 10 mg tablet Take 5 mg by mouth Daily. For allergies Cholecalciferol 4000 units TABS Take 4,000 Units by mouth Daily. cloNIDine (CATAPRES) 0.3 mg/[address] 1 patch onto the skin Once a week. 4 patc h 11 epoetin karthik (EPOGEN) 10,000 units/mL injection Inject 15,000 Units into the vein Three times a week. furosemide (LASIX) 80 mg tablet Take 2 tablets by mouth 2 times daily. 180 tablet 3 gabapentin (NEURONTIN) 100 mg capsule Take 2 capsules by mouth every morning. Insulin Pen Needle 31G X 5 MM MISC by Does not apply route. labetalol (NORMODYNE) 300 MG tablet Take 1 tablet by mouth 2 times daily. 180 tablet 3 Lancets MISC by Does not apply route. levothyroxine (SYNTHROID, LEVOTHROID) 75 MCG tablet Take 75 mcg by mouth every morning (before breakfast). losartan (COZAAR) 100 MG tablet Take 1 tablet by mouth Daily. 90 tablet 3 melatonin 3 mg TABS Take 1 tablet by mouth nightly as needed for Insomnia. 0 olopatadine (PATANOL) 0.1% ophthalmic solution Place 1-2 drops into both eyes 2 times d aily. pantoprazole (PROTONIX) 40 mg tablet Take 40 mg by mouth every morning (before breakfas t). traMADol (ULTRAM) 50 mg tablet Take 1 tablet by mouth every 8 hours as needed. 20 table t 0 Allergies Allergen Reactions Amoxicillin Other (See Comments) Patient stated she can't tolerate amoxicillin and stated its hard on her stomach. Lisinopril Pt states she does not remember what was the reaction she had to lisinopril. I asked her if it gave her a cough and she said "I cant remember, maybe it made me sick to my stomach". Naprosyn [Naproxen] Objective: BP 150/66 | Temp 36.7 C (98.1 F) [EDW previously 64.5 kg?] Physical Exam Heart: Regular rate and rhythm with no S3, S4, murmur or rub. Lungs: CTA bilaterally. No rales or wheezes. PICC line right chest is clear, dry, nonten jorge. Abdomen: soft, obese, nontender, NABS. Extremities: no edema, no clubbing, or cyanosis. No foot ulcers. LAB: BUN 70, Cr 8.8, K+ 8.5, HCO3 17, albumin 3.2, Ca++ 7.3, phosphorus 11.5, PTH 376, Hb 1 0.0, T sat = [not listed], eKT/V not listed, Assessment: 1. ESRD --she is clearly under dialyzed and of above her physiologic dry weight. I lengt hy discussion with her as well as the charge nurse that this will lead to suboptimal short-t erm outcome , or cardiovascular mortality. She is A&O x3 during this discussion. 2. Discitis/osteomyelitis T11-T12 -- Asymptomatic. previously she was lost to follow-up with her ID road consultant. 3. Hypertension-- Suboptimal control due to inability control her volume status. See ab ove discussion. 4. Anemia 2 to CKD-- Hb is drifting downward due to inadequate access to EPO from skip treatments. This was conveyed to her verbally. 5. Nutrition--need to recheck her HbA1c. Nutrition is likely declining due to obvious und er dialysis. 6. Type 2 DM-- stable. 7. CKD/MBD--she admits that she is not following a renal diet at this point. 8. Hypothyroidism--need to recheck her TSH. Plan: 1. monthly lab was reviewed with the patient. 2. Renal LAUNCH CHECK OUT, Renal RD, Renal Charge Nurse, and myself attempted to program counselor the patient at length today. It was discussed again that non adherence to scheduled treatments could lead to a poor outcome including increased CV morbidity, and . 3. Will need to recheck her HbA1c, PTH, iron profile next month. Electronically signed by Gopi Muñoz DO. 10/01/19 5:30 PM CC: [facility], [place] [facility], [place], [place]. document ed in this encounter Plan of Treatment Not on filedocumented as of this encounter Visit Diagnoses + + | Diagnosis | + + | ESRD (end stage renal disease) on dialysis (HCC) - Primary End stage renal disease | + + documented in this encounter
--- OUTSIDE RECORDS SUMMARY | ~2020-03-23 | XMS | Encounter Summary ---
Demographics + + + | Address | [address] | | | [place] [address] | + + + | Home Phone | | + + + | Preferred Language | Unknown | + + + | Marital Status | Single | + + + | Hindu Affiliation | Unknown | + + + | Race | Unknown | + + + | Ethnic Group | Unknown | + + + Author + + + | Author | [facility] | | | and [place] | + + + | Organization | [facility] | | | and [place] | + + + | Address | Unknown | + + + | Phone | Unavailable | + + + Support + + + + + | Name | Relationship | Address | Phone | + + + + + | India Tilley | ECON | [phone] | | | | | [place], [place] | | | | | [address] | | + + + + + [...] Team Providers + +------+ + | Care Building Insulation Supervisor Name | Role | Phone | + +------+ + PCP | Unavailable | + +------+ + Reason for Visit +--------+--------+ + | Reason | Onset | Comments | | | Date | | +--------+--------+ + | Other | 04/05/ | | | | 2019 | | +--------+--------+ + Encounter Details +--------+ + + + + | Date | Type | Department | Care Team | Description | +--------+ + + + + | 04/05/ | Telephone | [facility] [place] | Jesus Whitney | Other | | 2019 | | INFECTIOUS DISEASES | MD Lauro [address] | | | | | [address] | [place] | | | | | [place] | [address] | | | | | [address] | | | | | | [phone] | | | +--------+ + + + [...] this encounter Miscellaneous Notes Telephone Encounter - Johanna Arriaga, INSPECTOR [employer]LECT[employer]ICS - 04/05/2019 4:13 PM PDTSpoke with [facility] [employer] who clarifies that the way the IV Anbiotics (Vancomycin and Cefepime) were w ritten by Dr. Jansen and sent through [facility] as follows: Vancomycin IV Piggyback, Cefepime IV Push. She states that the facility which is now considering the patient cannot administer IV Jj yback's and IV pushes - it can only administer IV Infusions. The order needs to be re-written to [facility] as: Vancomycin IV infusion, Cefepime IV infusion. She is requesting a call back once the orders have been rewritten. elephone [place] unter - Calli Mon[place] - 04/05/2019 3:[address] Whitney in the hospital and released pt to a [facility], but pt went to live with family. Family now is overwhelm ed and needs pt to go to a [facility]. Family needs to get pt moved to [facility], but a SN home won't take pt due to the way the antibiotics are wrote. Won't accept the way the RX is wrote. Please call Nadira before 5:30 today or tomorrow 7:30. documented in this enco untmargarita Plan of Treatment Not on filedocumented as of this encounter Visit Diagnoses Not on filedocumented in this encounter"
--- OUTSIDE RECORDS SUMMARY | ~2020-03-23 | XMS | Encounter Summary ---
Demographics + + + | Address | [address] | | | [place] [address] | + + + | Home Phone | | + + + | Preferred Language | Unknown | + + + | Marital Status | Single | + + + | Denominational Affiliation | Unknown | + + + | Race | Unknown | + + + | Ethnic Group | Unknown | + + + Author + + + | Author | [facility] | | | and [place] | + + + | Organization | [facility] | | | and [place] | + + + | Address | Unknown | + + + | Phone | Unavailable | + + + Support + + + + + | Name | Relationship | Address | Phone | + + + + + | India Tilley | ECON | [address] | | | | | [place], [place] | | | | | [address] | | + + + + + [...] Team Providers + +------+ + | Care Account Manager Relief Name | Role | Phone | + +------+ + PCP | Unavailable | + +------+ + Reason for Referral Diagnostic/Screening (Emergency) +--------+--------+ + + + + | Status | Reason | Specialty | Diagnoses / | Referred By | Referred To | | | | | Procedures | Contact | Contact | +--------+--------+ + + + + | Closed | | Radiology | Diagnoses | Echaiz | [facility] | | | | | Infection | Nick Miller | [address] | | | | | fay | Paulie | NAKITA RASHID | | | | | intervertebashwini | [address] | | | | | al disc | [address] | [place], [place] | | | | | (pyogenic), | [place] | [address] | | | | | thoracic | [address] | Phone: | | | | | region ([facility]) | Phone: | [phone] | | | | | | [phone] | Fax: | | | | | 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: | [phone] | | | | | s of | [phone] | | | | | | thoracic | | | | | | | vertebra | | | | | | | (HCC) | | | | | | | Procedures | | | | | | | MRI Thoracic | | | | | | | Spine w wo | | | | | | | Contrast | | | | | | | MRI Thoracic | | | | | | | Spine wo | | | | | | | Contrast | | | +--------+--------+ + + + + Reason for Visit + + + | Reason | Comments | + + + | Establish Care | | + + + Evaluate & Treat (Routine) + +--------+ + + + + | Status | Reason | Specialty | Diagnoses / | Referred By | Referred To | | | | | Procedures | Contact | Contact | + +--------+ + + + + | Authorized | | Infectious | Diagnoses | Cecilia, | Cesar | | | | Diseases | | Mat Bolaños, | Infectious | | | | | Osteomyeliti | MD [address] | Disease [address] | | | | | s of | [address] MARY | [address] | | | | | vertebra, | [place], | [place], [place] | | | | | site | [place] [address] | [address] | | | | | unspecified | Phone: | Phone: | | | | | ([facility]) | [phone] | [phone] | | | | | Procedures | Fax: | Fax: | | | | | [place] OFFICE | [phone] | [phone] | | | | | OUTPATIENT | | | | | | | NEW 60 | | | | | | | MINUTES | | | + +--------+ + + + + Encounter Details +--------+---------+ + + + | Date | Type | Department | Care Team | Description | +--------+---------+ + + + | 05/18/ | Office | [facility] | Fabiana Miller, | 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 | 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 | Nick Apodaca MD | intervertebral disc | | | | [address] | [address] | (pyogenic), thoracic | | | | [place], [place] | [place] [address] | region (HCC) | | | | [address] | [phone] | (Primary Dx); | | | | [phone] | | Osteomyelitis of | | | | | | thoracic vertebra | | | | | | (HCC); | | | | | | Osteoarthritis, | | | | | | unspecified | | | | | | osteoarthritis type, | | | | | | unspecified site; | | | | | | Other chronic pain; | | | | | | Central venous | | | | | | catheter in place; | | | | | | ESRD on dialysis | | | | | | (HCC) | +--------+---------+ + + + Social History [...] + + + | Blood Pressure | 229/95 | 05/18/2019 1:30 PM | | | | | PDT | | + + + + + | Pulse | 71 | 05/18/2019 1:30 PM | | | | | PDT | | + + + + + | Temperature | 36.6 C (97.9 F) | 05/18/2019 1:30 PM | | | | | PDT | | + + + + + | Respiratory Rate | 18 | 05/18/2019 1:30 PM | | | | | PDT | | + + + + + | Oxygen Saturation | 92% | 05/18/2019 1:30 PM | | | | | PDT | | + + + + + | Inhaled Oxygen | - | - | | | Concentration | | | | + + + + + | Weight | 70.8 kg (156 lb) | 05/18/2019 1:30 PM | | | | | PDT | | + + + + + | Height | 172.7 cm (5' 8") | 05/18/2019 1:30 PM | | | | | PDT | | + + + + + | Body Mass Index | 23.72 | 05/18/2019 1:30 PM | | | | | PDT [...] of this encounter Patient Instructions Patient Instructions Nick Pritchard MD - 05/18/2019 1:[address] 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 Complete MRI as soon as possible. Complete lab testing today.Electronically signed by Nick Miller MD at 01/2019 2:01 PM PDT documented in this encounter Progress Notes Nick Pritchard MD - 05/18/2019 1:20 PM PDT [facility] Service: Infectious Diseases Initial Outpatient Consult Note REQUESTING PHYSICIAN/PROVIDER: Floyd Zuniga MD REASON FOR CONSULT Evaluate for possible discitis and osteomyelitis CHIEF COMPLAINT Chronic back pain HISTORY OF PRESENT ILLNESS The patient is a 74 y.o.-year-old female with significant PMH of multiple medical problems including a history of breast cancer from approximately 13 years ago, in remission, history of end-stage renal disease on hemodialysis with diabetic nephropathy, with dialysis via a [facility] upper extremity AV fistula on Wednesdays and Fridays, seen in consultation for p ossible discitis and osteomyelitis. History is obtained from: Patient, limited medical records from outside referring provider. The patient presents to clinic referred by Dr. Mat Brooks from orthopedic surgery in [facility]. 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 Medical record review indicates that the patient's was admitted to [facility] in [place] from March 24, 2019 through March 31, 2019 with complaints of ba ck pain. She apparently had a CT-guided biopsy on March 24, 2019 with a Gram stain and cultu res that were negative, AFB culture negative, fungus culture negative. The patient was jos mmended intravenous antibiotic therapy based on imaging findings suspicious for discitis and osteomyelitis. Most of the high suspicion for osteomyelitis was reported on the CT of the chest abdomen pelvis which showed endplate irregularity and bony destruction involving the T 11-T12 disc level. The patient had a tunneled central line placed and she was set up for outpatient therapy. It looks like she was discharged to a rehabilitation facility but she had a very hard time t here and she left the facility. She also had her antibiotics stopped approximately a week a go by her financial administrator. The patient states that she was on antibiotics for approximately 4 weeks. She had an initial recommendation for 6 weeks of therapy. As above, medical records are limited and the patient also reports her version of the event s. The patient reports that she had a hip fracture approximately 6 months ago and soon after t hat she started having ongoing pain issues. She does suffer from chronic pain related to de generative arthritis. She tells me that she is suffered from back pain before but not to th is degree. She went downhill after her surgery for the hip fracture. Medical record review also indicates that the patient was tested with inflammatory markers ESR and CRP at the time of her diagnosis of discitis and osteomyelitis and they were apparen tly elevated. Recent lab testing from April 28, 2019. Report was reviewed, it is blurry. Appears that CRP is either 6.1 or 8.1 with reference range between 0 and 6. Looks like sed imentation rate appears to be 48 with a reference range between 0 and 20. We were able to obtain some medical records for this patient. There is a progress note benjamin ed May 01, 2019 were the patient presented to the emergency department due to hypertensio n as well as ongoing pain. This was apparently after she was seen in the clinic by Dr. Brooks . It was noted in the medication section that she was apparently taking vancomycin and cefe pime. She was afebrile in the emergency department. She did have hypertension with a blood pressure 221/91. There is also blood cultures x2 that were obtained dated March 23, 2019 which were no growth at 5 days of incubation. There is also an MRI of the lumbar spine with and without contras t from March 23, 2019 at which revealed mild paravertebral soft tissue thickening and enhance ment, diffuse edema throughout all the vertebral bodies, moderate type I endplate changes in L2-L3 and L3-L4, disc desiccation at L2-L3 through L5-S1, anterolisthesis, no epidural flui d collections, there was a small posterior disc protrusion between T11 and T12, diffuse enha ncement along the endplates and throughout the vertebral bodies, enhancement of the paravert ebral soft tissues, and notably there was no fluid signal throughout the disc which was ment ioned to be atypical for discitis and osteomyelitis. Also mentioned in the report degenerat lashawn changes was in the differential diagnosis although the findings remained "somewhat suspi cious for osteomyelitis". Finally, there is a note dated 2019 from nephrology, with documentation that the patient was on vancomycin intravenously 500 mg after hemodialysis and also daily IV cefepim e. The same records also indicate that the patient was seen by Dr. Carlos Jansen, infectious disease. 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 Orbital cellulitis on left DJD (degenerative joint disease) Other chronic pain Other orbital disorder Other, mixed, or unspecified nondependent drug abuse, unspecified Cerebral artery occlusion with cerebral infarction Elevated hemoglobin A1c Poor historian Decreased glomerular filtration rate (GFR) ESRD (end stage renal disease) on dialysis Closed right hip fracture Non-compliance Closed fracture of neck of right femur probable Discitis of thoracic region Past Surgical History: Procedure Laterality Date APPENDECTOMY EYE SURGERY 2009 HIP SURGERY Right 12/04/2018 Procedure: ORIF HIP W/CANNULATED SCREWS; Surgeon: Scott Koroma MD; Location: [facility] MAIN OR HYSTERECTOMY MASTECTOMY 2005 left ear NOSE SURGERY 2008 OTHER SURGICAL HISTORY Right 03/28/2019 Procedure: TUNNEL PICC LINE PLACEMENT-6fr 22cm BARD Power Line; Surgeon: Jose Jiménez MD; Location: [facility] INTERVENTIONAL RADIOLOGY REMOVAL TUNNELED CATHETER Right 04/04/[address] Stephenson SHUNT PLACEMENT/INSERTION N/A 11/08/2017 Procedure: Tunneled Hemodialysis Catheter Placement; Surgeon: Nora Leo MD; Location : [facility] MAIN OR SHUNT PLACEMENT/INSERTION Right 02/04/2018 Procedure: INSERTION SHUNT HEMODIALYSIS W/ PERMACATH; Surgeon: Heather Navarro MD; L ocation: [facility] MAIN OR VEIN SURGERY Right 01/04/2018 Procedure: Right Transposed Basilic Vein to Proximal Radial Artery; Surgeon: Santos Stephenson MD, FACS; Location: [facility] MAIN OR Social History Socioeconomic History Marital status: Single Spouse name: Not on file Number of children: Not on file Years of education: Not on file Highest education level: Not on file Social Needs Financial resource strain: Not on file Food insecurity - worry: Not on file Food insecurity - inability: Not on file Transportation needs - medical: Not on file Transportation needs - non-medical: Not on file Occupational History Not on file Tobacco Use Smoking status: Current Every Day Smoker Smokeless tobacco: Never Used Substance and Sexual Activity Alcohol use: No Alcohol/week: 0.0 oz Drug use: No Sexual activity: Not on file Other Topics Concern Not on file Social History Narrative Not on file IMMUNIZATIONS: Immunization History Administered Date(s) Administered HEP B, 3 DOSE (ADULT) 06/15/2001, 07/18/2001, 06/22/2002 Hep B, Dialysis, 4 Dose 11/19/2017, 12/17/2017, 01/21/2018 INFLUENZA PF 65 Y OR >,TRIVALENT (FLUAD) 06/03/2018 INFLUENZA PF QUAD(PED/ADOL/ADULT),PSKT or VIAL 05/19/2016, 09/23/2017 INFLUENZA PF TRIVALENT(PED/ADOL/ADULT), PSKT 06/28/2015 INFLUENZA QUADR W/PRES (PED/ADOL/ADULT) MULTIDOSE 06/27/2014 INFLUENZA, [id number], UNSPECIFIED 08/28/2009 INFLUENZA, UNSPECIFIED FORMULATION 07/03/1992, 06/18/1993, 07/12/1996, 06/22/1997, 09/14, 07/29/2000, 06/15/2001, 07/21/2002, 07/20/2003, 06/26/2004, 07/02/2005, 08/03/2006, 07/22/2007, 08/28/2009, 06/17/2010, 07/30/2011, 05/25/2012, 06/20/2013 PNEUMOCOCCAL CONJUGATE 13-VALENT (PCV13) 07/30/2011, 02/12/2016 PNEUMOCOCCAL POLYSACCHARIDE 23-VALENT (PPSV23) 06/22/1997, 07/20/2003, 07/30/2011 TD PF (2 LF TETANUS) (ADOL/ADULT) 07/03/1992, 06/22/2002 TDAP, (ADOL/ADULT) 06/17/2010, 06/17/2010 ZOSTER, 1 DOSE (ZOSTAVAX) 01/28/2012 stated as current, but no records available Family History Problem Relation Age of Onset Diabetes Other grandfather Diabetes Other grandmother Cancer Sister MEDICATIONS Reviewed with the patient and Patient did not bring medication list or bottles today Current Outpatient Medications: albuterol 90 mcg/puff inhaler, Inhale 2 puffs into the lungs 4 times daily as needed f or Shortness of Breath., Disp: , Rfl: ARTIFICIAL TEAR SOLUTION OP, Place 1-2 drops into both eyes as needed (for dry eyes)., Disp: , Rfl: aspirin 81 mg EC tablet, Take 81 mg by mouth Daily., Disp: , Rfl: atorvaSTATin (LIPITOR) 20 mg tablet, Take 20 mg by mouth nightly., Disp: , Rfl: b complex-vitamin c-folic acid (NEPHRO-MANUEL) tablet, Take 1 tablet by mouth Daily., Di sp: , Rfl: calcium acetate (PHOSLO) 667 mg capsule, Take 1 capsule by mouth 3 times daily (with m eals)., Disp: 180 capsule, Rfl: 0 Cholecalciferol 4000 units TABS, Take 4,000 Units by mouth Daily., Disp: , Rfl: cloNIDine (CATAPRES) 0.3 mg/24 hr patch, Place 1 patch onto the skin Once a week., Dis p: 4 patch, Rfl: 11 epoetin karthik (EPOGEN, PROCRIT) 4,000 units/mL injection, Inject 0.85 mLs into the vein Three times a week., Disp: , Rfl: furosemide (LASIX) 80 mg tablet, Take 1 tablet by mouth Daily., Disp: 90 tablet, Rfl: 3 gabapentin (NEURONTIN) 100 mg capsule, Take 2 capsules by mouth every morning., Disp: , Rfl: HYDROcodone-acetaminophen (NORCO) 5-325 mg per tablet, Take 1 tablet by mouth every 12 hours as needed for Pain., Disp: 40 tablet, Rfl: 0 hydrophilic ointment, Apply 1 Application topically Daily. For dry skin, Disp: , Rfl: Insulin Pen Needle 31G X 5 MM MISC, by Does not apply route., Disp: , Rfl: labetalol (NORMODYNE) 300 MG tablet, Take 1 tablet by mouth 2 times daily., Disp: 180 tablet, Rfl: 3 Lancets MISC, by Does not apply route., Disp: , Rfl: levothyroxine (SYNTHROID, LEVOTHROID) 75 MCG tablet, Take 75 mcg by mouth every mornin g (before breakfast)., Disp: , Rfl: NIFEdipine (PROCARDIA XL) 90 mg ER tablet, Take 1 tablet by mouth Daily., Disp: 90 tab let, Rfl: 3 olopatadine (PATANOL) 0.1% ophthalmic solution, Place 1-2 drops into both eyes 2 times daily., Disp: , Rfl: ondansetron (ZOFRAN) 4 mg tablet, Take 1 tablet by mouth every 6 hours as needed for N ausea., Disp: 20 tablet, Rfl: 0 pantoprazole (PROTONIX) 40 mg tablet, Take 40 mg by mouth every morning (before breakf ast)., Disp: , Rfl: Allergies Allergen Reactions Amoxicillin Other (See Comments) Patient stated she can't tolerate amoxicillin and stated its hard on her stomach. Lisinopril Pt states she does not remember what was the reaction she had to lisinopril. I asked her if it gave her a cough and she said "I cant remember, maybe it made me sick to my stomach". Naprosyn [Naproxen] REVIEW OF SYSTEMS 12+ systems reviewed. Positive for back pain, difficulty walking, hip pain, leg edema, fatigue, easy bruising, th in skin. Rest were negative. PHYSICAL EXAM Vital Signs: BP (!) 229/95 | Pulse 71 | Temp 36.6 C (97.9 F) (Tympanic) | Resp 18 | Ht 1.727 m ( 5' 8") | Wt 70.8 kg (156 lb) | SpO2 92% | BMI 23.72 kg/m Estimated body mass index is 23.72 kg/m as calculated from the following: Height as of this encounter: 1.727 m (5' 8"). Weight as of this encounter: 70.8 kg (156 lb). General Appearance: Alert, cooperative, no distress Head: Normocephalic, without obvious abnormality, atraumatic. Lips, mucosa, and tongue normal; dentition normal; no thrush present. Eyes: PERRL, conjunctiva/corneas clear, EOM's intact. Throat: Oropharynx without exudates. Neck: Supple, symmetrical, trachea midline, no adenopathy; thyroid: no enlargement/tendern ess/nodules; no carotid bruit or JVD Back: Patient has significant tenderness in the paravertebral musculature from the thora cic to the lumbar region. No evidence of bulging, erythema, induration. Lungs: Clear to auscultation bilaterally, respirations unlabored Chest Wall: No tenderness or deformity Heart: Regular rate and rhythm, S1 and S2 normal, no murmur, no rub or gallop Abdomen: Soft, non-tender, bowel sounds active all four quadrants, no masses, no organome valerie Extremities: Extremities normal, atraumatic, no cyanosis 2+ edema Pulses: 2+ and symmetric all extremities Skin: Skin color, texture, turgor normal, no rashes or lesions Lymph nodes: Cervical, supraclavicular, and axillary nodes normal Neurologic: Alert and oriented to time, place and person. CNII-XII intact, normal strength, sensation and reflexes throughout. No focal neurological deficits Venous access: Right IJ central line. REVIEW OF LABS: All labs were reviewed. Results for orders placed or performed in visit on 05/16/19 Sedimentation Rate Result Value Ref Range ESR 79 (A) 0 - 20 mm/hr Abstract on 05/16/2019 Component Date Value Ref Range Status ESR 05/12/2019 79* 0 - 20 mm/hr Final Estimated Creatinine Clearance: 8 mL/min (A) (based on SCr of 6.1 mg/dL (H)). ASSESSMENT AND RECOMMENDATIONS The patient is a 74 y.o.-year-old female with the following problems: Visit Diagnoses and Associated Orders: Estefani was seen today for establish care. Diagnoses and all orders for this visit: Infection of intervertebral disc (pyogenic), thoracic region (HCC) - Cancel: Culture, Blood; Future - Culture, Blood; Future - CBC with Differential; Future - Comprehensive Metabolic Panel; Future - Sedimentation Rate; Future - C-Reactive Protein; Future - Cancel: MRI Thoracic Spine wo Contrast; Future - MRI Thoracic Spine w wo Contrast; Future Osteomyelitis of thoracic vertebra (HCC) - Cancel: Culture, Blood; Future - Culture, Blood; Future - CBC with Differential; Future - Comprehensive Metabolic Panel; Future - Sedimentation Rate; Future - C-Reactive Protein; Future - Cancel: MRI Thoracic Spine wo Contrast; Future - MRI Thoracic Spine w wo Contrast; Future Osteoarthritis, unspecified osteoarthritis type, unspecified site Other chronic pain Central venous catheter in place ESRD on dialysis (HCC) The patient presents with a chronic history of exacerbation of her back pain that started a round the time she had a right hip fracture and surgery for this. Since then, she has been dealing with worsening back pain for which she was evaluated in an outside hospital and had a CT which was suspicious for osteomyelitis. MRI was "somewhat suspicious for osteomyelitis ". Actually, the MRI report was reviewed in detail. There are a lot of findings there that ar e associated with degenerative disease of the spine and therefore this remains as a differen tial diagnosis for the patient's back pain. In addition, she has a very significant muscle tenderness in the paraspinal muscles and as she is virtually unable to walk with an erect po sition. She is always adopting a bent over position. As far as her elevated inflammatory markers, perhaps this has an alternative etiology. The patient has had a negative CT-guided biopsy for Gram stain and cultures. I do not have the results of the actual histopathology which would be really helpful in the management of thi s patient. Perhaps this was not done. That being said, she has received relatively broad-spectrum coverage with vancomycin and ce fepime without any significant improvement in her symptoms. Therefore, at the moment I have recommended the patient to repeat stat MRI of the thoracic spine (where she had evidence of osteomyelitis and discitis), repeat laboratory testing incl uding blood cultures x2 sets, CBC, CMP, ESR, CRP, obtain records regarding biopsy and go fro m there. If her MRI shows persistent signs of inflammation, or the inflammation markers are still elevated, we may subject the patient to a second biopsy including histopathology. Th e lack of fluid signal in the disc space could be seen with Pott disease but the AFB culture has been negative so far. Patient has not been on antibiotic therapy for the last week and she remained stable, afebr ile, without leukocytosis. I do not recommend starting therapy at this moment and we will g et the information very quickly and see the patient back in the clinic in 1 week. She will contact her local doctors for maintenance of her central line until we get all the informati on needed to make decisions on her care. Side effects of medications, duration of therapy, prognosis and importance of adherence wer e discussed with the patient today. Follow up in 1 week. Nick Jung MD, MPH Infectious Diseases 05/18/2019 document ed in this encounter Plan of Treatment + +---------+--------+ + + | Name | Type | Priori | Associated Diagnoses | Order Schedule | | | | ty | | | + +---------+--------+ + + | MRI Thoracic Spine w | Imaging | STAT | Infection of | Expected: | | wo Contrast | | | intervertebral disc | 05/18/2019, Expires: | | | | | (pyogenic), thoracic | 05/18/2020 | | | | | region (HCC) | | | | | | Osteomyelitis of | | | | | | thoracic vertebra | | | | | | (HCC) | | + +---------+--------+ + + documented as of this encounter Results C-Reactive Protein (05/18/2019 3:45 PM PDT) + + + + + + | Component | Value | Ref Range | Performed | Pathologist | | | | | At | Signature | + + + + + + | CRP | 4.4 (H)Comment: Testing | <0.5 mg/dL | REFERENCE | | | | performed at [facility];[address] | | LAB | | | | [place] | | [facility] | [address] | [address];[place] [address] | | LABORATORY | | + + + + + + + + | Specimen | + + | Blood | + + + + + + + | Performing | Address | City/State/Zipcode | Phone Number | | Organization | | | | + + + + + | REFERENCE LAB | [address] [place] [address] | [place], [place] | [phone] | | [facility] [address] | [address] | | | LABORATORY | | | | + + + + + | REFERENCE LAB | [address] [place] [address] | [place], [place] | | | [facility] | [address] | [address] | | | LABORATORY | | | | + + + + + Sedimentation Rate (05/18/2019 3:45 PM PDT) + + + + + + | Component | Value | Ref Range | Performed | Pathologist | | | | | At | Signature | + + + + + + | ESR | 90 (H)Comment: Testing | 0 - 30 mm/Hr | REFERENCE | | | | performed at [facility];[address] | | LAB | | | | [place] | | [facility] | | | | [address];[place] [address] | | LABORATORY | | + + + + + + + + | Specimen | + + | Blood | + + + + + + + | Performing | Address | City/State/Zipcode | Phone Number | | Organization | | | | + + + + + | REFERENCE LAB | [address] | [place] | [phone] | | [facility] | [address] | [address] | | | LABORATORY | | | | + + + + + | REFERENCE LAB | [address] | [place] | | | [facility] | [address] | [address] | | | LABORATORY | | | | + + + + + Comprehensive Metabolic Panel (05/18/2019 3:45 PM PDT) + + + + + + | Component | Value | Ref Range | Performed | Pathologist | | | | | At | Signature | + + + + + + | Na | 136 | 135 - 145 | REFERENCE | | | | | mmol/L | LAB | | | | | | [facility] | | | | | | LABORATORY | | + + + + + + | K | 5.2 (H)Comment: SPECIMEN | 3.5 - 4.9 | REFERENCE | | | | SLIGHTLY HEMOLYZED | mmol/L | LAB | | | | | | [facility] | | | | | | LABORATORY | | + + + + + + | Cl | 98 (L) | 99 - 109 mmol/L | REFERENCE | | | | | | LAB | | | | | | [facility] | | | | | | LABORATORY | | + + + + + + | CO2 | 26 | 23 - 32 mmol/L | REFERENCE | | | | | | LAB | | | | | | [facility] | | | | | | [facility]AT[facility] | | + + + + + + | Anion Gap | 17 | 5 - 20 mmol/L | REFERENCE | | | | | | LAB | | | | | | [facility] | | | | | | [facility] | | + + + + + + | Glucose | 138 (H)Comment: SPECIMEN | 65 - 99 mg/dL | REFERENCE | | | | SLIGHTLY HEMOLYZED | | LAB | | | | | | [facility] | | | | | | [facility]ORAT[facility] | | + + + + + + | BUN | 37 (H) | 8 - 25 mg/dL | REFERENCE | | | | | | LAB | | | | | | [facility] | | | | | | LABORAT[facility] | | + + + + + + | Creatinine | 6.1 (H)Comment: SPECIMEN | 0.50 - 1.00 | REFERENCE | | | | SLIGHTLY HEMOLYZED | mg/dL | LAB | | | | | | [facility] | | | | | | [facility]ORAT[facility] | | + + + + + + | BUN/Creatin | 6 | | REFERENCE | | | ine Ratio | | | LAB | | | | | | [facility] | | | | | | LABORAT[facility] | | + + + + + + | Calcium | 8.3 (L) | 8.5 - 10.5 | REFERENCE | | | | | mg/dL | LAB | | | | | | [facility] | | | | | | LABOR[facility] | | + + + + + + | Protein, | 7.9 | 6.3 - 8.2 g/dL | REFERENCE | | | Total | | | LAB | | | | | | [facility] | | | | | | LABOR[facility] | | + + + + + + | Albumin | 2.7 (L) | 3.3 - 4.8 g/dL | REFERENCE | | | | | | LAB | | | | | | [facility] | | | | | | [facility] | | + + + + + + | Globulin | 5.2 (H) | 1.3 - 4.9 g/dL | REFERENCE | | | | | | LAB | | | | | | [facility] | | | | | | [facility] | | + + + + + + | A/G Ratio | 0.5 (L) | 1.0 - 2.4 | REFERENCE | | | | | | LAB | | | | | | [facility] | | | | | | LAB[facility] | | + + + + + + | BILIRUBIN, | 0.7Comment: SPECIMEN | 0.1 - 1.5 mg/dL | REFERENCE | | | TOTAL | SLIGHTLY HEMOLYZED | | LAB | | | | | | [facility] | | | | | | [facility] | | + + + + + + | ALK PHOS | 78 | 35 - 115 U/L | REFERENCE | | | | | | LAB | | | | | | [facility] | | | | | | [facility] | | + + + + + + | AST | 19Comment: SPECIMEN | 10 - 45 U/L | REFERENCE | | | | SLIGHTLY HEMOLYZED | | LAB | | | | | | [facility] | | | | | | [facility] | | + + + + + + | ALT | 14Comment: SPECIMEN | 10 - 65 U/L | REFERENCE | | | | SLIGHTLY HEMOLYZED | | LAB | | | | | | [facility] | | | | | | [facility] | | + + + + + + | Estimated | 7 (L)Comment: GFR <60: | >60 | REFERENCE | | | GFR | CHRONIC KIDNEY DISEASE, | mL/min/1.73m2 | LAB | | | | IF FOUND OVER A 3 MONTH | | [facility] | | | | PERIOD.GFR <15: KIDNEY | | LABORATORY | | | | FAILURE.FOR | | | | | | AMERICANS, MULTIPLY THE | | | | | | CALCULATED GFR BY | | | | | | 1.210.This eGFR is | | | | | | calculated using the | | | | | | MDRD IDMS traceable | | | | | | equation.Testing | | | | | | performed at [facility];[address] | | | | | | [facility] | | | | | | [facility];[place] [address] | | | | | | | | | | + + + + + + + + | Specimen | + + | Blood | + + + + + + + | Performing | Address | City/State/Zipcode | Phone Number | | Organization | | | | + + + + + | REFERENCE LAB | [address] [place] [address] | [place], [place] | [phone] | | [facility] | Bl[address] | [address] | | | LABORATORY | | | | + + + + + | REFERENCE LAB | [address] [place] [address] | [place], [place] | | | [facility] | Blvd[address] | [address] | | | LABORATORY | | | | + + + + + CBC with Differential (05/18/2019 3:45 PM PDT) + + + + + + | Component | Value | Ref Range | Performed | Pathologist | | | | | At | Signature | + + + + + + | WBC | 7.35 | 3.80 - 11.00 | REFERENCE | | | | | K/uL | LAB | | | | | | [facility] | | | | | | LABORAT[facility] | | + + + + + + | Red Blood | 2.97 (L) | 3.70 - 5.10 | REFERENCE | | | Cells | | M/uL | LAB | | | | | | [facility] | | | | | | LABORATORY | | + + + + + + | Hemoglobin | 10.1 (L) | 11.3 - 15.5 | REFERENCE | | | | | g/dL | LAB | | | | | | [facility] | | | | | | LABORAT[facility] | | + + + + + + | Hematocrit | 29.5 (L) | 34.0 - 46.0 % | REFERENCE | | | | | | LAB | | | | | | [facility] | | | | | | LABORAT[facility] | | + + + + + + | MCV | 99.5 | 80.0 - 100.0 fl | REFERENCE | | | | | | LAB | | | | | | [facility] | | | | | | LABORATORY | | + + + + + + | MCH | 34.0 | 27.0 - 34.0 pg | REFERENCE | | | | | | LAB | | | | | | [facility] | | | | | | LABORATORY | | + + + + + + | MCHC | 34.2 | 32.0 - 35.5 | REFERENCE | | | | | g/dL | LAB | | | | | | [facility] | | | | | | LABORATORY | | + + + + + + | RDW-SD | 50.8 | 37 - 53 fl | REFERENCE | | | | | | LAB | | | | | | [facility] | | | | | | LABORATORY | | + + + + + + | Platelet | 342 | 150 - 400 K/uL | REFERENCE | | | Count | | | LAB | | | | | | [facility] | | | | | | LABORATORY | | + + + + + + | MPV | 9.1 | fl | REFERENCE | | | | | | LAB | | | | | | [facility] | | | | | | LABORATORY | | + + + + + + | Diff Type | AUTOMATED | | REFERENCE | | | | | | LAB | | | | | | [facility] | | | | | | LABORATORY | | + + + + + + | % | 77.28 | % | REFERENCE | | | Neutrophils | | | LAB | | | | | | [facility] | | | | | | LABORATORY | | + + + + + + | % | 11.13 | % | REFERENCE | | | Lymphocytes | | | LAB | | | | | | [facility] | | | | | | LABORATORY | | + + + + + + | Monocyte % | 4.83 | % | REFERENCE | | | | | | LAB | | | | | | [facility] | | | | | | LABORATORY | | + + + + + + | Eosinophils | 5.94 | % | REFERENCE | | | % | | | LAB | | | | | | [facility] | | | | | | LABORATORY | | + + + + + + | Basophils % | 0.82 | % | REFERENCE | | | | | | LAB | | | | | | [facility] | | | | | | LABORATORY | | + + + + + + | Neutrophils | 5.68 | 1.90 - 7.40 | REFERENCE | | | , Absolute | | K/uL | LAB | | | | | | [facility] | | | | | | LABORATORY | | + + + + + + | Absolute | 0.82 (L) | 1.00 - 3.90 | REFERENCE | | | Lymphocytes | | K/uL | LAB | | | | | | [facility] | | | | | | LABORATORY | | + + + + + + | Absolute | 0.35 | 0.00 - 0.80 | REFERENCE | | | Monocytes | | K/uL | LAB | | | | | | [facility] | | | | | | LABORATORY | | + + + + + + | Eosinophils | 0.44 | 0.00 - 0.50 | REFERENCE | | | , Absolute | | K/uL | LAB | | | | | | [facility] | | | | | | LABORATORY | | + + + + + + | Basophils, | 0.06Comment: Testing | 0.00 - 0.10 | REFERENCE | | | Absolute | performed at [facility];[address] | K/uL | LAB | | | | [facility] | | [facility] | | | | [address];[place] [address] | | LABORATORY | | + + + + + + + + | Specimen | + + | Blood | + + + + + + + | Performing | Address | City/State/Zipcode | Phone Number | | Organization | | | | + + + + + | REFERENCE LAB | [address] | [place] | [phone] | | [facility] | Bl[address] | [address] | | | LABORATORY | | | | + + + + + | REFERENCE LAB | [address] | [place] | | | [facility] | Blvd[address] | [address] | | | LABORATORY | | | | + + + + + Culture, Blood (05/18/2019 3:08 PM PDT) + + + + + + | Component | Value | Ref Range | Performed | Pathologist | | | | | At | Signature | + + + + + + | RESULT | NO GROWTH 6 DAYS | | REFERENCE | | | | | | LAB | | | | | | [facility] | | | | | | LABORATORY | | + + + + + + | RESULT | Testing performed at | | REFERENCE | | | | [facility];[address] [facility] | | LAB | | | | Blvd;[place] | | [facility] | | | | [id number]: Testing | | LABORATORY | | | | performed at [facility], [address] | [address] [facility] [address], | | | | | | [place] [address] | | | | + + + + + + + + | Specimen | + + | Blood - Structure of | | antecubital vein | | (body structure) | + + + + + + + | Performing | Address | City/State/Zipcode | Phone Number | | Organization | | | | + + + + + | REFERENCE LAB | [address] [place] [address] | [place], [place] | [phone] | | [facility] | Bl[address] | [address] | | | LABORATORY | | | | + + + + + | REFERENCE LAB | [address] [place] [address] | [place], [place] | | | [facility] | Blvd[address] | [address] | | | LABORATORY | | | | + + + + + documented in this encounter Visit Diagnoses + + | Diagnosis | + + | Infection of intervertebral disc (pyogenic), thoracic region (HCC) - Primary | + + | Osteomyelitis of thoracic vertebra (HCC) Unspecified osteomyelitis, other specified | | site | + + | Osteoarthritis, unspecified osteoarthritis type, unspecified site | + + | Other chronic pain | + + | Central venous catheter in place | + + | ESRD on dialysis (HCC) End stage renal disease | + + documented in this encounter
--- OUTSIDE RECORDS SUMMARY | ~2020-03-23 | XMS | Encounter Summary ---
Demographics + + + | Address | [address] | | | [place] [address] | + + + | Home Phone | | + + + | Preferred Language | Unknown | + + + | Marital Status | Single | + + + | Jew Affiliation | Unknown | + + + | Race | Unknown | + + + | Ethnic Group | Unknown | + + + Author + + + | Author | [facility] | | | and [place]it[place] | + + + | Organization | [facility] | | | and [place] | + + + | Address | Unknown | + + + | Phone | Unavailable | + + + Support + + + + + | Name | Relationship | Address | Phone | + + + + + | India Tilley | [place] | [phone] | | | | | [place], [place] | | | | | [address] | | + + + + + [...] Team Providers + +------+ + | Care Appraiser [employer] Name | Role | Phone | + [...] | | | | | | | End stage | | | | | | | renal | | | | | | | disease | | | | | | | ([facility]) | | | | | | | Complication | | | | | | | s, dialysis, | | | | | | | catheter, | | | | | | | mechanical, | | | | | | | initial | | | | | | | encounter | | | | | | | ([facility]) | | | | | | | Procedures | | | | | | | INSERTION | | | | | | | SHUNT | | | | | | | HEMODIALYSIS | | | | | | | W/ | | | | | | | PERMACATH | | | +--------+--------+ + + + + Encounter Details +--------+ + + + + | Date | Type | Department | Care Team | Description | +--------+ + + + + | 02/04/ | Anesthesia | [facility] | Lyndsay Mckeon, | | | 2018 | Event | [facility] | DO [address] | | | | | [address] | [place] | | | | | [place] | [address] | | | | | [address] | | | | | | [phone] | | | +--------+ + + + + Anesthesia Record + + + + + | Procedure Name | Responsible | Anesthesia Start | Anesthesia Stop Time | | | Anesthesiologist | Time | | + + + + + | INSERTION SHUNT | Lyndsay Mckeon DO | 02/04/184 | 02/04/18 2314 | | HEMODIALYSIS W/ | | | | | PERMACATH (Right | | | | | Chest) | | | | + + + + + +----+---+ + + | Da | T | Event | Comment | | te | i | | | | | m | | | | | e | | | +----+---+ + + | 05 | 2 | | | | /2 | 1 | | | | 5/ | 4 | | | | 20 | 9 | | | | 18 | | | | +----+---+ + + | | 2 | An Checkout | Pre-use anesthesia machine/equipment checkout. | | | 1 | | | | | 5 | | | | | 3 | | | +----+---+ + + | | 2 | An Start | Reassessment prior to anesthesia induction/procedure. | | | 2 | | | | | 0 | | | | | 4 | | | +----+---+ + + | | 2 | Preoxygenat | | | | 2 | ed | | | | 1 | | | | | 0 | | | +----+---+ + + | | 2 | Pre-Procedu | | | | 2 | ral Timeout | | | | 1 | Completed | | | | 0 | | | +----+---+ + + | | 2 | An | | | | 2 | Induction | | | | 1 | | | | | 0 | | | +----+---+ + + | | 2 | An | | | | 2 | Intubation | | | | 1 | | | | | 1 | | | +----+---+ + + | | 2 | Antibiotic | | | | 2 | Given | | | | 1 | | | | | 6 | | | +----+---+ + + | | 2 | Kayenta | | | | 2 | 43-degrees | | | | 2 | | | | | 1 | | | +----+---+ + + | | 2 | Breathing | | | | 2 | Spontaneous | | | | 2 | ly | | | | 1 | | | +----+---+ + + | | 2 | First | | | | 2 | Inc/Proc St | | | | 2 | | | | | 8 | | | +----+---+ + + | | 2 | an stop | | | | 3 | data | | | | 0 | | | | | 9 | | | +----+---+ + + | | 2 | An Stop | Patient handed off to recovery nurse. | | | 1 | | | | | 4 | | | +----+---+ + + +------+ | Meds | +------+ + +---------+ | Name | Total | + +---------+ | fentaNYL injection (2 mL) | 100 mcg | + +---------+ | propofol (DIPRIVAN) injection | 140 mg | | (bolus) (20 mL) | | + +---------+ | lidocaine 2% | 50 mg | + +---------+ | ondansetron | 4 mg | + +---------+ | ceFAZolin | 2 g | + +---------+ | sodium chloride 0.9% (NS) | 200 mL | | infusion | | + +---------+ + + | Name [...] +--------+ + + + | Periph | 02/04/18; 1920; Left; Wrist; | 02/04/181920 by | 02/05/18129 by | | eral | [id number] catheter system; | Keren Hernandez RN | Francia Melo RN | | IV | 20 gauge; Hematology, Chemistry, | | | | | Coagulation; 0; no longer | | | | | indicated; 02/05/18; 129 | | | +--------+ + + + | Airway | Placement Date: 02/04/18; | 02/04/182210 by | 02/04/182309 by | | | Placement Time: 2210 (created via | Lyndsay Mckeon DO | Danelle Tran RN | | | procedure documentation); Mask | | | | | Ventilation: EZ; Attempts: 1; | | | | | Airway Type: laryngeal mask; | | | | | Size: 4; Trauma: none; Placement | | | | | Check: exhaled CO2 detection | | | | | device, bilateral chest rise; | | | | | Removal: removed by ANUPAMA/PA; | | | | | Removal Date: 02/04/18; Removal | | | | | Time: 2309 | | | +--------+ + + + | Read | 02/04/18; 2228; Right; chest; | 02/04/18 2228 by | 12/06/18 1342 by | | only - | 12/06/18 (Completed/Removed by | Dyan Card RN | User Epic | | | Utility); 1342 (Completed/Removed | | | | Incisi | by Utility) | | | | on | | | | +--------+ + + + documented in [...] + + documented as of this encounter OR Notes Anesthesia Postprocedure Evaluation - Lyndsay Mckeon DO - 02/04/2018 11:14 PM PDTFormat ting of this note might be different from the original. ANESTHESIA POSTANESTHESIA EVALUATION Estefani Tilley 72 y.o. female 1945 [id number] Procedure(s) INSERTION SHUNT HEMODIALYSIS W/ PERMACATH (Right Chest) Cooperates? Yes Mental Status Performs simple tasks. Respiratory Satisfactory - Airway patent (self maintained). Cardiovascular Satisfactory - Blood pressure and heart rate acceptable Temperature Satisfactory Pain Satisfactory N/V Control Satisfactory Hydration Satisfactory - No signs of dehydration Complications None apparent Vitals: 02/04/18 1816 02/04/18 2311 BP: 146/68 199/62 Pulse: 72 74 Temp: 36.3 C (97.4 F) 36 C (96.8 F) Resp: 16 16 SpO2: 97% 98% Electronically signed by Lyndsay Mckeon DO 02/04/2018 23:14 [facility] SERVICESElectronically signed by Lyndsay Mckeon DO at 11:14 PM PDTAnesthesia Procedure Notes - Lyndsay Mckeon DO - 02/04/2018 10:17 P M PDTAssociated Order(s): ANE AIRWAY NOTEAnesthesia Airway Placement 02/04/2018 22:11 Preprocedure check: patient identified, oxygen, airway equipment checked, suction, airway a ssessed and patient reassessment prior to induction Mask ventilation: easy Attempts: 1 Airway type: laryngeal mask Size: 4 Route, reference point: center of mouth Tube secured with: adhesive tape Trauma: none Tube placement verification: bilateral chest rise and carbon dioxide detection Performing provider: LYNDSAY MCKEON Electronically Signed by: Lyndsay Mckeon DO ESig date/time : 02/04/2018 22:17 nesthesia Preproce dure Evaluation - Lyndsay Mckeon DO - 02/04/2018 9:04 PM PDTFormatting of this note eric ht be different from the original. ANESTHESIA PREANESTHESIA EVALUATION Estefani Tilley 72 y.o. female 1945 [id number] Procedure(s): INSERTION SHUNT HEMODIALYSIS W/ PERMACATH (Right Chest) Medical history, anesthesia, medications, allergy, NPO status verified histories reviewed. ECG reviewed. Labs reviewed. Review of Systems / Med History Cardiovascular TTE 10/2017: Conclusions Summary 1. Mild left atrial dilatation. 2. Normal left ventricular size, wall thickness and motion. Preserved left ventricular systolic function. LVEF is 60-65%. 3. Mildly thickened and calcified mitral valve with a mild to moderate mitral valve regurgitation. 4. Mild mitral annular calcification. 5. Mildly thickened and calcified trileaflet aortic valve with adequate opening. 6. Mild to moderate mitral valve regurgitation. 7. Mild to moderate pulmonary hypertension with a peak systolic pressure of 50-55 mmHg. 8. Dilated IVC without respiratory collapse suggesting fluid retention. 9. No obvious vegetation/endocarditis seen on this study.. (+) hypertension, echocardiogram (+) Valvular disease Neurology Left sided weakness. (+) CVA, back pain, chronic pain Psychology (+) depression, substance abuse Renal (+) end-stage renal disease Gastrointestinal/Hepatic (+) hyperlipidemia Endocrine (+) hypothyroidism (+) Diabetes: type 2 Other (+) arthritis Cancer (+) breast cancer Physical Exam Airway MP II, TM >3 FB, Mouth opening >2 FB. Neck: full ROM, extends >30 degrees. Jaw protrus ion normal. Dental Grossly normal except where noted below.; CV cardiovascular normal Pulm Clear to auscultation bilaterally. Neuro Grossly normal. Anesthesia Plan ASA 3 Type: General. Induction: Intravenous. Potential problems: None anticipated. Monitors: Standard ASA monitors. Consent statement:Anesthetic plan, alternatives, risks and benefits discussed with patient. Risks discussed included (but were not limited to): nausea, pain, sore throat, backache, mu scle aches, perioperative CV events, respiratory events, dental injury, . Consenting person understands and agrees to proceed. documented in this encounter Plan of Treatment Not on filedocumented as of this encounter Procedures + +--------+ + + + | Procedure Name | Priori | Date/Time | Associated Diagnosis | Comments | | | ty | | | | + +--------+ + + + | ANE AIRWAY NOTE | Routin | 02/04/2018 | | Results for this | | | e | 10:17 PM | | procedure are in the | | | | PDT | | results section. | + +--------+ + + + documented in this encounter Results Anesthesia Airway Note (02/04/2018 10:17 PM PDT) + + + | Narrative | Performed At | + + + | Lyndsay Mckeon DO 02/04/2018 22:17 Anesthesia | | | Airway Placement 02/04/2018 22:11 Preprocedure check: patient | | | identified, oxygen, airway equipment checked, suction, airway | | | assessed and patient reassessment prior to induction Mask | | | ventilation: easy Attempts: 1 Airway type: laryngeal mask Size: 4 | | | Route, reference point: center of mouth Tube secured with: adhesive | | | tape Trauma: none Tube placement verification: bilateral chest rise | | | and carbon dioxide detection Performing provider: MIKE | | | LYNDSAY RAMOS Electronically Signed by: Lyndsay Hunter | | | DO Mike ESig date/time: | | | 02/04/2018 22:17 | | + + + + + | Procedure Note | + + | Lyndsay Mckeon DO - 02/04/2018 10:17 PM PDT Anesthesia Airway Placement02/04/2018 | | 22:11Preprocedure check: patient identified, oxygen, airway equipment checked, suction, | | airway assessed and patient reassessment prior to inductionMask ventilation: | | easyAttempts: 1Airway type: laryngeal maskSize: 4Route, reference point: center of | | mouthTube secured with: adhesive tapeTrauma: noneTube placement verification: bilateral | | chest rise and carbon dioxide detectionPerforming provider: LYNDSAY MCKEON | | GABRIELElectronically Signed by: Lyndsay Mckeon DO ESig | | date/time: 02/04/2018 22:17 | |Route, reference point: center of mouth | |Tube secured with: adhesive tape | |Trauma: none | |Tube placement verification: bilateral chest rise and carbon dioxide detection | |Performing provider: LYNDSAY MCKEON | | | | | |Electronically Signed by: Lyndsay Mckeon DO ESig date/time : 02/04/2018 22:17 | | | + + documented in this encounter Visit Diagnoses Not on filedocumented in this encounter Administered Medications + +--------+ +------+------+------+ | Medication Order | MAR | Action | Dose | Rate | Site | | | Action | Date | | | | + +--------+ +------+------+------+ | ceFAZolin (ANCEF, KEFZOL) | Given | 02/05/20 | 2 g | | | | injection Intravenous, PRN, | | 18 10:16 | | | | | Starting 02/04/18 at 2216, | | PM PDT | | | | | Anesthesia Intra-op | | | | | | + +--------+ +------+------+------+ +---+---+ | | | +---+---+ + +-------+ +--------+---+---+ | fentaNYL (PF) injection | Given | 02/05/20 | 50 mcg | | | | Intravenous, PRN, Pain, Starting | | 18 10:38 | | | | | 02/04/18 at 2209, Anesthesia | | PM PDT | | | | | Intra-op | | | | | | + +-------+ +--------+---+---+ +-------+ +--------+---+---+ | Given | 02/05/20 | 25 mcg | | | | | 18 10:21 | | | | | | PM PDT | | | | +-------+ +--------+---+---+ | Given | 02/05/20 | 25 mcg | | | | | 18 10:09 | | | | | | PM PDT | | | | +-------+ +--------+---+---+ +---+---+ | | | +---+---+ + +-------+ +-------+---+---+ | lidocaine (PF) 2% injection | Given | 02/05/20 | 50 mg | | | | Intravenous, PRN, Starting Fri | | 18 10:10 | | | | | 02/04/18 at 2210, Anesthesia | | PM PDT | | | | | Intra-op | | | | | | + +-------+ +-------+---+---+ +---+---+ | | | +---+---+ + +-------+ +------+---+---+ | ondansetron (ZOFRAN) injection | Given | 02/05/20 | 4 mg | | | | Intravenous, PRN, Nausea, | | 18 10:10 | | | | | Vomiting, Starting 02/04/18 at | | PM PDT | | | | | 2210, Anesthesia Intra-op | | | | | | + +-------+ +------+---+---+ +---+---+ | | | +---+---+ + +-------+ +--------+---+---+ | propofol (DIPRIVAN) injection | Given | 05/25/20 | 140 mg | | | | Intravenous, PRN, Starting Fri | | 18 10:10 | | | | | 02/04/18 at 2210, Anesthesia | | PM PDT | | | | | Intra-op | | | | | | + +-------+ +--------+---+---+ +---+---+ | | | +---+---+ + +---------+ +---+---+---+ | sodium chloride 0.9% (NS) | New Bag | 02/05/20 | | | | | infusion at 50 mL/hr, | | 18 9:57 | | | | | Intravenous, CONTINUOUS, Starting | | PM PDT | | | | | 02/04/18 at 2150 | | | | | | + +---------+ +---+---+---+ +---+---+ | | | +---+---+ documented in this encounter"
--- OUTSIDE RECORDS SUMMARY | ~2020-03-23 | XMS | Encounter Summary ---
Demographics + + + | Address | [address] | | | [place] [address] | + + + | Home Phone | | + + + | Preferred Language | Unknown | + + + | Marital Status | Single | + + + | Sabianist Affiliation | Unknown | + + + | Race | Unknown | + + + | Ethnic Group | Unknown | + + + Author + + + | Author | and [facility] | | | and [place]it[place] | + + + | Organization | and [facility] | | | and [place] | + + + | Address | Unknown | + + + | Phone | Unavailable | + + + Support + + + + + | Name | Relationship | Address | Phone | + + + + + | India Tilley | ECON | [address] | | | | | [place], [place] | | | | | [address] | | + + + + + [...] Team Providers + +------+ + | Care [place] Name | Role | Phone | + +------+ + PCP | Unavailable | + +------+ + Reason for Visit +---------+ + | Reason | Comments | +---------+ + | Post Op | Post Op Percutaneous Cannulated Screw Fixation Right Femoral Neck | | | Fracture DOS: *XRAYS TAKEN TODAY* | +---------+ + Encounter Details +--------+---------+ + + + | Date | Type | Department | Care Team | Description | +--------+---------+ + + + | 02/03/ | Office | [facility] | Scott Koroma, | Postop check | | 2019 | Visit | ORTHOPEDIC SURGERY | [address] | (Primary Dx) | | | | [address] | [place] | | | | | [place] | [address] | | | | | [address] | | | | | | [phone] | | | +--------+---------+ + + + [...] + + + + | Temperature | - | - | | + [...] Weight | 70.8 kg (156 lb) | 02/03/2019 10:44 AM | | | | | PDT | | + + + + + | Height | 172.7 cm (5' 8") | 02/03/2019 10:44 AM | | | | | PDT | | + + + + + | Body Mass Index | 23.72 | 02/03/2019 10:44 AM | | | | | PDT [...] documented as of this encounter Progress Notes Scott Koroma MD - 02/03/2019 10:45 AM PDTPatient returns follow up percutaneous cannula rich screw fixation right femoral neck fracture She is doing well with the right hip She is walking today without a cane although I think her balance is bad and I encouraged h er to use a cane at the minimum She has multiple other complaints that I can't evaluate today without a specific referral She probably has left knee osteoarthritis and we discussed options for dealing with it Her xrays right hip look good with apparent healing of the femoral neck fracture without co mplication The screws look good without any migration Impression - healed right femoral neck fracture We discussed the future with her hip She has a low chance of future AVN or osteoarthritis right hip and will follow her as need ed documented in this e ncounter Plan of Treatment Not on filedocumented as of this encounter Visit Diagnoses + + | Diagnosis | + + | Postop check - Primary Follow-up examination, following unspecified surgery | + + documented in this encounter
--- OUTSIDE RECORDS SUMMARY | ~2020-03-23 | XMS | Encounter Summary ---
Demographics + + + | Address | [address] | | | [place] [address] | + + + | Home Phone | | + + + | Preferred Language | Unknown | + + + | Marital Status | Single | + + + | Anabaptism Affiliation | Unknown | + + + | Race | Unknown | + + + | Ethnic Group | Unknown | + + + Author + + + | Author | [facility] | | | and [place] | + + + | Organization | [facility] | | | and [place] | + + + | Address | Unknown | + + + | Phone | Unavailable | + + + Support + + + + + | Name | Relationship | Address | Phone | + + + + + | India Tilley | ECON | [address] | | | | | [place], [place] | | | | | [address] | | + + + + + [...] Team Providers + +------+ + | Care Silverer Name | Role | Phone | + [...] [place], | | | | | [place] [facility] | [place], | [place] [address] | | | | | RELATED [facility] | [place] | Phone: | | | | | MONTHLY | [address] | [phone] | | | | | 20&/> YR OLD | Phone: | Fax: | | | | | 4/> VISITS | [phone] | [phone] | | | | | | Fax: | | | | | | | [phone] | | +--------+--------+ + + + + Encounter Details +--------+ + + + + | Date | Type | Department | Care Team | Description | +--------+ + + + + | 07/10/ | Off-Site | [facility] | Gopi Muñoz | ESRD (end stage | | 2019 | Visit | NEPHROLOGY [address] | M, DO [address] | renal disease) on | | | | [address] | [address] [place] | dialysis (HCC) | | | | [place], [place] | [place] [address] | (Primary Dx) | | | | [address] | [phone] | | | | | [phone] | | | +--------+ + + + [...] documented as of this encounter Progress Notes Gopi Muñoz DO - 07/10/2019 11:00 AM PDT[Not seen.] documented in this encounter Plan of Treatment Not on filedocumented as of this encounter Visit Diagnoses + + | Diagnosis | + + | ESRD (end stage renal disease) on dialysis (HCC) - Primary End stage renal disease | + + documented in this encounter"
--- OUTSIDE RECORDS SUMMARY | ~2020-03-23 | XMS | Encounter Summary ---
Demographics + + + | Address | [address] | | | [place] [address] | + + + | Home Phone | | + + + | Preferred Language | Unknown | + + + | Marital Status | Single | + + + | Shinto Affiliation | Unknown | + + + | Race | Unknown | + + + | Ethnic Group | Unknown | + + + Author + + + | Author | [facility] | | | and [place] | + + + | Organization | [facility] | | | and [place] | + + + | Address | Unknown | + + + | Phone | Unavailable | + + + Support + + + + + | Name | Relationship | Address | Phone | + + + + + | India Tilley | ECON | [phone] | | | | | [place], [place] | | | | | [address] | | + + + + + [...] Providers + +------+ + | Care Vp Compliance Name | Role | Phone | + +------+ + PCP | Unavailable | + +------+ + Reason for Visit + +--------+ + | Reason | Onset | Comments | | | Date | | + +--------+ + | Appointment | 01/05/ | | | | 2018 | | + +--------+ + Encounter Details +--------+ + + + + | Date | Type | Department | Care Team | Description | +--------+ + + + + | 01/05/ | Telephone | [facility] | Santos Stephenson | Appointment | | 2018 | | SURGERY [address] | MD Kinga, FACS [address] | | | | [address] [place], [place] | [address] | | | | | [address] | [place] [address] | | | | | [phone] | [phone] | | | | | | | [...] this encounter Miscellaneous Notes Telephone Encounter - Mike Pearson RN - 01/05/2018 4:21 PM PDTPatient was schedule d elephone Encount er - Mike Pearson RN - 01/05/2018 10:29 AM PDTPatient had surgery on 01/05/18. She cortés d a PO appointment made after office visit on 12/30/17 for 01/17/18. Please contact to schedule PO for 01/10/[address] Stephenson's discharge instructions. elephone Encounter - Gina Osborn - 01/05/2018 9:59 AM PDTDebbie with Dialysis in [place] called and stated that on [facility] instructions it has her PO scheduled for 01/17 at 1400 but to follow up with Dr Stephenson on 01/10/18... No appointment has been made for the . Please confirm with Dr Stephenson and ca heaven Aleta back at [phone] and let the front end mechanic know. documented in this encounter Plan of Treatment Not on filedocumented as of this encounter Visit Diagnoses Not on filedocumented in this encounter"
--- OUTSIDE RECORDS SUMMARY | ~2020-03-23 | XMS | Encounter Summary ---
Demographics + + + | Address | [address] | | | [place] [address] | + + + | Home Phone | | + + + | Preferred Language | Unknown | + + + | Marital Status | Single | + + + | Baptist Affiliation | Unknown | + + + | Race | Unknown | + + + | Ethnic Group | Unknown | + + + Author + + + | Author | [facility] | | | and [place] | + + + | Organization | [facility] | | | and [place] | + + + | Address | Unknown | + + + | Phone | Unavailable | + + + Support + + + + + | Name | Relationship | Address | Phone | + + + + + | India Tilley | ECON | [phone] | | | | | [place], [place] | | | | | [address] | | + + + + + [...] Team Providers + +------+ + | Care Senior Strategy Manager Name | Role | Phone | [...] | Surgery | kidney | DO [address] | , [address] | | | | | disease, | [address] | [address] | | | | | stage V | [address] | [place], | | | | | ([facility]) | [place], | [place] [address] | | | | | | [place] [address] | Phone: | | | | | | Phone: | [phone] | | | | | | [phone] | Fax: | | | | | | Fax: | [phone] | | | | | | [phone] | | +--------+ + + + + + Encounter Details +--------+---------+ + + + | Date | Type | Department | Care Team | Description | +--------+---------+ + + + | 01/10/ | Office | [facility] | Santos Stephenson | Chronic kidney | | 2018 | Visit | SURGERY [address] | MD Kinga, FACS [address] | disease, stage V | | | | [address] [place], [place] | [facility] | (HCC) (Primary Dx); | | | | [address] | [place] [address] | Post-operative state | | | | [phone] | [phone] | | | | | | | [...] Placement; Surgeon: Nora Leo MD; Location : [facility] MA[facility] OR VEIN SURGERY Right 01/04/2018 Procedure: Right Transposed Basilic Vein to Proximal Radial Artery; Surgeon: Santos Stephenson MD, FACS; Location: [facility] MA[facility] OR Allergies Allergen Reactions Lisinopril [...] of, and in the presence of Santos kulkrani MD, FACS. I have reviewed and edited this note. Karena Valle CMA 01/10/18 Santos Donato MD, FACS, personally performed the services described in this docume ntation, as scribed by Karena Valle CMA in my presence, and it is both accurate and complet e. Karena Valle CMA 01/10/2018 14:04 documented i n this encounter Plan of Treatment Not on filedocumented as of this encounter Visit Diagnoses + + | Diagnosis | + + | Chronic kidney disease, stage V (HCC) - Primary Chronic kidney disease, Stage V | + + | Post-operative state Other postprocedural status | + + documented in this encounter
--- OUTSIDE RECORDS SUMMARY | ~2020-03-23 | XMS | Encounter Summary ---
Demographics + + + | Address | [address] | | | [place] [address] | + + + | Home Phone [...] | Author | [facility] | | | and [place] | + + + | Organization | [facility] | | | and [place] | + + + | Address | Unknown | + + + | Phone | Unavailable | + + + Support + + + + + | Name | Relationship | Address | Phone | + + + + + | India Campos | ECON | [phone] | | | | | [place], [place] | | | | | [address] | | + + + + + [...] Team Providers + +------+ + | Care Ethics Officer Name | Role | Phone | + +------+ + | Renato Pierson | PCP | | + +------+ + Reason for Visit + + + | Reason | Comments | + + + | Shortness of Breath | | + + + | Chest Pain | | + + + Auth/Cert +--------+--------+ + + + + | Status | Reason | Specialty | Diagnoses / | Referred By | Referred To | | | | | Procedures | Contact | Contact | +--------+--------+ + + + + | | | | | | | +--------+--------+ + + + + Encounter Details +--------+ + + + + | Date | Type | Department | Care Team | Description | +--------+ + + + + | 10/30/ | Emergency | [facility] | Yaw Laguna MD | Pleural effusion | | 2019 - | | [facility] | [address] | (Primary Dx); | | | | CENTER [address] | [place] | Congestive heart | | 10/31/ | | [place] | [id number] | failure, unspecified | | 2020 | | [phone] | | HF chronicity, | | | | [phone] | Nick Mendoza MD | unspecified heart | | | | | [address] | failure type (HCC); | | | | | [place] | Elevated troponin | | | | | [address] | | | | | | | [...] + + + | Blood Pressure | 152/87 | 10/31/2019 12:00 AM | | | | | PST | | + + + + + | Pulse | 86 | 10/31/2019 12:00 AM | | | | | PST | | + + + + + | Temperature | 37.6 C (99.7 F) | 10/30/2019 11:48 AM | | | | | PST | | + + + + + | Respiratory Rate | 13 | 10/31/2019 12:00 AM | | | | | PST | | + + + + + | Oxygen Saturation | 97% | 10/31/2019 12:00 AM | | | | | PST | | + + + + + | Inhaled Oxygen | - | - | | | Concentration | | | | + + + + + | Weight | 75.8 kg (167 lb) | 10/30/2019 11:48 AM | | | | | PST | | + + + + + | Height | 172.7 cm (5' 8") | 10/30/2019 11:48 AM | | | | | PST | | + + + + + | Body Mass Index | 25.39 | 10/30/2019 11:48 AM | | | | | PST [...] amLODIPine | Take 1 tablet by | 90 | 3 | 09/21/19 | | | (NORVASC) 5 mg | mouth 2 times daily. | tablet | | 20 | | | tablet | | | [...] capsule by | 180 | 0 | 09/21/19 | | | (CALCIUM ACETATE) | mouth 4 times daily | capsule | | 20 | | | 667 mg capsule | (before meals and | | | | | | | nightly). | | | | | + + + +---------+ + + | cetirizine | Take 5 mg by mouth | | 0 | | | | (ZYRTEC) 10 mg | Daily. For allergies | | | | | | tablet | | | | | | + + + +---------+ + + | Cholecalciferol | Take 4,000 Units by | | 0 | 12/11/19 | | | 4000 units TABS | mouth Daily. | | | 19 | | + + + +---------+ + + | cloNIDine | Place 1 patch onto | 4 patch | 11 | 04/28/20 | | | (CATAPRES) 0.3 mg/24 | the skin Once a | | | 19 | | | hr patch | week. | | | | | + + + +---------+ + + | epoetin karthik | Inject 4,000 Units | | 0 | | | | (EPOGEN) 10,000 | into the vein Three | | | | | | units/mL injection | times a week. | | | | | + + + +---------+ + + | furosemide (LASIX) | Take 2 tablets by | 180 | 3 | 09/21/19 | | | 80 mg tablet | mouth 2 times daily. | tablet | | 20 | | + + + +---------+ + + | gabapentin | Take 2 capsules by | | 0 | 05/11/20 | | | (NEURONTIN) 100 mg | mouth every morning. | | | 19 | | | capsule | | | | | | + + + +---------+ + + | Insulin Pen Needle | by Does not apply | | 0 | | | | 31G X 5 MM MISC | route. | | | | | + + + +---------+ + + | labetalol | Take 1 tablet by | 180 | 3 | 04/26/20 | | | (NORMODYNE) 300 MG | mouth 2 times daily. | tablet | | 19 | | | tablet | | | [...] (COZAAR) | Take 1 tablet by | 90 | 3 | 09/21/19 | | | 100 MG tablet | mouth Daily. | tablet | | 20 | | + + + +---------+ + + | melatonin 3 mg | Take 1 tablet by | | 0 | 09/21/19 | | | TABS | mouth nightly as | | | 20 | | | | needed for Insomnia. | | | | | + + [...] + + + +---------+ + + | traMADol (ULTRAM) | Take 1 tablet by | 20 | 0 | 09/21/19 | | | 50 mg tablet | mouth every 8 hours | tablet | | 20 | | | | as needed. | | | | | + + + +---------+ + + documented as of this encounter H&P Notes Olegario Peng MD - 10/30/2019 2:37 PM PSTFormatting of this note might be different fr om the original. [place] HOSPITALIST HISTORY & PHYSICAL Patient: Estefani Campos : 1945: Age: 74 y.o. MedRec: [id number] Admission date: 10/30/2019 Hospital day # : 0 Physician author: Olegario Peng MD Today: 10/30/2019 CHIEF COMPLAINT: Shortness of breath, cough HISTORY OF PRESENT ILLNESS: This is a 74 y.o. female with a history of end-stage renal disease (MWF) secondary to diabe tic glomerular sclerosis, lir-vpqllqu-odowufrhz diabetes type 2, hypertension, anemia, hypot hyroidism who presented with shortness of breath, cough and found to have influenza and larg e left pleural effusion. Patient reports 4-5 days of progressively worsening shortness of b reath. Positive cough (white sputum). Positive chills, no fevers. Positive lower extremit y edema. No sick contacts, recent traveling. Patient did receive flu shot. Positive nause a, diarrhea (1-2 episodes, watery, nonbloody). Patient denies URI-like symptoms. Patient d id have sharp left-sided chest pain with no radiation, that typically lasts several seconds. Not increased by exertion. Has occurred a few times during the day for 4-5 days. Positiv e generalized fatigue. Patient has been compliant with dialysis. Unclear about compliance with medications. Patient presented to the emergency department, chest x-ray shows white opacification of lef t lung concerning for large pleural effusion. Troponin 0.32. Influenza a positive. Patien t received Solu-Medrol 60 mg, DuoNeb treatments. PAST MEDICAL and SURGICAL HISTORY: Past Medical History: Diagnosis Date Anemia Arthritis Back pain Breast cancer (HCC) s/p left mastectomy in 2004, s/p chemotherapy Cancer (HCC) Diabetes (HCC) Heart disease Hemodialysis patient ([facility]) mon-wed-wed History of blood clots Hypercholesteremia Hypertension Hypothyroidism Renal failure Seasonal allergies Stroke (cerebrum) ([facility]) Past Surgical History: Procedure Laterality Date APPENDECTOMY EYE SURGERY 2009 HIP SURGERY Right 12/04/2018 Procedure: ORIF HIP W/CANNULATED SCREWS; Surgeon: Scott Koroma MD; Location: [facility] MAIN OR HYSTERECTOMY MASTECTOMY 2006 left ear NOSE SURGERY 2008 OTHER SURGICAL HISTORY Right 03/28/2019 Procedure: TUNNEL PICC LINE PLACEMENT-6fr 22cm BARD Power Line; Surgeon: Jose Jiménez MD; Location: [facility] INTERVENTIONAL RADIOLOGY REMOVAL TUNNELED CATHETER Right 04/04/[address] Stephenson SHUNT PLACEMENT/INSERTION N/A 11/08/2017 Procedure: Tunneled Hemodialysis Catheter Placement; Surgeon: Nora Leo MD; Location : [facility] MAIN OR SHUNT PLACEMENT/INSERTION Right 02/04/2018 Procedure: INSERTION SHUNT HEMODIALYSIS W/ PERMACATH; Surgeon: Heather Navarro MD; L ocation: [facility] MAIN OR VEIN SURGERY Right 01/04/2018 Procedure: Right Transposed Basilic Vein to Proximal Radial Artery; Surgeon: Santos Stephenson MD, FACS; Location: [facility] MAIN OR FAMILY HISTORY: family history includes Cancer in her sister; Diabetes in some other family members. SOCIAL HISTORY: reports that she has been smoking. She has never used smokeless tobacco. She reports that she does not drink alcohol or use drugs. REVIEW OF SYSTEMS: Review of Systems Constitutional: Positive for chills. Negative for fever. HENT: Negative. Eyes: Negative. Respiratory: Positive for cough, sputum production, shortness of breath and wheezing. Cardiovascular: Positive for chest pain and leg swelling. Gastrointestinal: Positive for diarrhea and nausea. Negative for vomiting. Genitourinary: Negative. Musculoskeletal: Negative. Skin: Negative. Neurological: Negative. Endo/Heme/Allergies: Negative. Psychiatric/Behavioral: Negative. HOME MEDICATIONS: PT REPORTED TAKING NOT TAKING Medication Sig Last Dose Dispense Doc. Provider albuterol 90 mcg/puff inhaler Inhale 2 puffs into the lungs 4 times daily as needed for Sh ortness of Breath. Historical Provider, amLODIPine (NORVASC) 5 mg tablet Take 1 tablet by mouth 2 times daily. 90 tablet Gopi Muñoz DO ARTIFICIAL TEAR SOLUTION OP Place 1-2 drops into both eyes as needed (for dry eyes). His torical Provider, aspirin 81 mg EC tablet Take 81 mg by mouth Daily. Historical Provider, atorvaSTATin (LIPITOR) 20 mg tablet Take 20 mg by mouth nightly. Historical Provider, b complex-vitamin c-folic acid (NEPHRO-MANUEL) tablet Take 1 tablet by mouth Daily. Histor ical Provider, calcium acetate (CALCIUM ACETATE) 667 mg capsule Take 1 capsule by mouth 4 times daily (be fore meals and nightly). 180 capsule Gopi Muñoz DO cetirizine (ZYRTEC) 10 mg tablet Take 5 mg by mouth Daily. For allergies Historical Prov iderMD Cholecalciferol 4000 units TABS Take 4,000 Units by mouth Daily. Gopi Muñoz DO cloNIDine (CATAPRES) 0.3 mg/[address] 1 patch onto the skin Once a week. 4 patch Gopi Muñoz DO epoetin karthik (EPOGEN) 10,000 units/mL injection Inject 15,000 Units into the vein Three ti mes a week. Historical Provider, furosemide (LASIX) 80 mg tablet Take 2 tablets by mouth 2 times daily. 180 tablet Gopi Muñoz DO gabapentin (NEURONTIN) 100 mg capsule Take 2 capsules by mouth every morning. Gopi Muñoz DO Insulin Pen Needle 31G X 5 MM MISC by Does not apply route. Historical Provider, labetalol (NORMODYNE) 300 MG tablet Take 1 tablet by mouth 2 times daily. 180 tablet Cyril Muñoz DO Lancets MISC by Does not apply route. Historical Provider, levothyroxine (SYNTHROID, LEVOTHROID) 75 MCG tablet Take 75 mcg by mouth every morning (be fore breakfast). Historical Provider, losartan (COZAAR) 100 MG tablet Take 1 tablet by mouth Daily. 90 tablet Gopi kearney DO melatonin 3 mg TABS Take 1 tablet by mouth nightly as needed for Insomnia. Gopi oconnell DO olopatadine (PATANOL) 0.1% ophthalmic solution Place 1-2 drops into both eyes 2 times maite y. Historical Provider, pantoprazole (PROTONIX) 40 mg tablet Take 40 mg by mouth every morning (before breakfast). Historical Provider, traMADol (ULTRAM) 50 mg tablet Take 1 tablet by mouth every 8 hours as needed. 20 tablet Gopi Muñoz, DO ALLERGIES: Allergies Allergen Reactions Amoxicillin Other (See Comments) Patient stated she can't tolerate amoxicillin and stated its hard on her stomach. Lisinopril Pt states she does not remember what was the reaction she had to lisinopril. I asked her if it gave her a cough and she said "I cant remember, maybe it made me sick to my stomach". Naprosyn [Naproxen] VITAL SIGNS: Temp: 37.6 C (99.7 F), Pulse: 93, Resp: 23, BP: 151/79, SpO2 97 % on nasal cannula at f low rate 2L/min Temp Min: 37.6 C (99.7 F) Max: 37.6 C (99.7 F) Weight: 75.8 kg (167 lb) PHYSICAL EXAMINATION: Constitutional Answering questions Eye No conjunctivitis nor scleral icterus ENT Unremarkable oral ear and nose Neck No adenopathy, thyromegaly nor masses Lymph node exam Negative in the following areas: neck and epitrochlear Cardiac S1, S2 present, no murmurs Lung Decreased breath sounds in L lung, mild R expiratory wheezing Abdomen + BS, Soft, NT, no HSM nor masses Extremities + 2 LE edema + RUE with fistula present, + thrill Psych Mood and affect normal Neuro No focal deficit DIAGNOSTIC STUDIES: Lab results last 24 hours Recent Results (from the past 24 hour(s)) ECG 12 lead Collection Time: 10/30/19 12:58 PM Result Value Ref Range INTERPRETATION TEXT Not Confirmed CBC w/ Auto Differential Collection Time: 10/30/19 12:59 PM Result Value Ref Range WBC 8.6 4.0 - 11.0 K/uL RBC 4.05 3.70 - 5.20 M/uL Hemoglobin 11.5 11.5 - 16.0 g/dL Hematocrit 37.3 34.0 - 47.0 % MCV 92.1 83.0 - 101.0 fL MCH 28.4 28.0 - 35.0 pg MCHC 30.8 (L) 32.0 - 36.0 g/dL RDW-CV 16.3 (H) <15.0 % RDW-SD 55.5 (H) 35.1 - 46.3 fL Platelet Count 307 140 - 440 K/uL MPV 10.3 6.5 - 12.4 fL % Neutrophils 86.5 (H) 45.0 - 82.0 % % Lymphocytes 6.1 (L) 20.0 - 45.0 % % Monocytes 6.4 4.0 - 12.0 % % Eosinophils 0.1 0.0 - 5.0 % % Basophils 0.2 0.0 - 1.0 % % Immature Granulocytes 0.7 (H) 0.0 - 0.4 % Absolute Neutrophils 7.47 1.80 - 8.50 K/uL Absolute Lymphocytes 0.53 (L) 0.60 - 3.20 K/uL Absolute Monocytes 0.55 0.00 - 1.00 K/uL Absolute Eosinophils 0.01 0.00 - 0.40 K/uL Absolute Basophils 0.02 0.00 - 0.10 K/uL Absolute Immature Granulocytes 0.06 (H) 0.00 - 0.03 K/uL % nRBC 0 0 - 2 per 100 WBCs Absolute nRBC 0.00 0.00 - 0.01 K/uL Comprehensive Metabolic Panel Collection Time: 10/30/19 12:59 PM Result Value Ref Range Na 128 (L) 136 - 145 mmol/L K 4.8 3.4 - 5.1 mmol/L Cl 91 (L) 98 - 107 mmol/L CO2 26 20 - 31 mmol/L Anion Gap 11 3 - 16 mmol/L Glucose 193 (H) 60 - 106 mg/dL BUN 43 (H) 9 - 23 mg/dL Creatinine 5.23 (H) 0.55 - 1.02 mg/dL eGFR if not 8 (L) >=60 mL/min/1.73m2 Calcium 8.8 8.7 - 10.4 mg/dL Albumin 3.5 3.2 - 4.8 g/dL Bilirubin Total 1.2 0.3 - 1.2 mg/dL Total Protein 7.4 5.7 - 8.2 g/dL AST 19 0 - 34 U/L ALT 16 10 - 49 U/L Alkaline Phosphatase 113 46 - 116 U/L Globulin 3.9 (H) 2.1 - 3.8 g/dL Albumin/Globulin Ratio 0.9 0.8 - 1.9 BUN/Creatinine Ratio 8.2 Troponin I Collection Time: 10/30/19 12:59 PM Result Value Ref Range Troponin I 0.32 (H) <0.06 ng/mL B Type Natriuretic Peptide Collection Time: 10/30/19 12:59 PM Result Value Ref Range BNP >5,000 (H) <100 pg/mL Influenza A and B RNA, NAAT Collection Time: 10/30/19 1:02 PM Result Value Ref Range Influenza A PCR Positive (A) Negative, Test not performed Influenza B PCR Negative Negative, Test not performed Protime INR Collection Time: 10/30/19 1:40 PM Result Value Ref Range Prothrombin Time 16.5 (H) 11.3 - 13.9 seconds INR 1.3 (H) 0.9 - 1.1 Micro results Microbiology Results (72 hrs) Procedure Component Value Units Date/Time Influenza A and B RNA, NAAT [[id number]] (Abnormal) Collected: 10/30/19 1302 Order Status: Completed Lab Status: Final result Updated: 10/30/19 1337 Specimen: Tissue from Nasopharynx Influenza A PCR Positive Influenza B PCR Negative Radiology results Xr Chest Ap Portable Result Date: 10/30/2019 XR CHEST AP PORTABLE 10/30/2019 12:46 PM HISTORY: SHORTNESS OF BREATH CHEST PAIN. COMPARISON : 09/20/2019 Findings: Worsening complete opacification of the left lung with collapse of the left lower lobe and near complete collapse of the left upper lobe. Prominence of the right p erihilar interstitial/bronchovascular markings. No acute osseous findings. Osseous remodelin g of the right acromioclavicular and glenohumeral joints. Interval complete opacification of the left hemithorax, suspicious for dramatically worsene d large pleural effusion with adjacent collapse of the lung. Right lung mild pulmonary vascu lar congestion and/or component of pulmonary inflammation/infection. Dictated and Signed by: Itz Madsen MD Electronically signed: 10/30/2019 1:58 PM I reviewed imaging EKG Results (I reviewed EKG) I reviewed and summarized old records ASSESSMENT: Principal Problem: Acute hypoxia secondary to left pleural effusion, influenza A Code Status Full Medical Decision Maker Self DVT Prophylaxis HSQ PLAN: Shortness of breath likely secondary to left large pleural effusion and influenza A Patient reports progressively worsening shortness of breath for 4-5 days. No leukocytosis. Hemoglobin 11.5, INR 1.3. Chest x-ray with left large pleural effusion. Influenza a posi tive. BNP greater than 5000 -Thoracentesis ordered -Lights criteria ordered, cell count, culture ordered -Culture ordered -Neb, Solu-Medrol 40 mg every 12 -We will not initiate Tamiflu given initiation of flulike symptoms 4 days prior to presenta tion -Spoke with Dr. Muñoz, given thoracentesis today plan for HD tomorrow -Increased home dose of furosemide 80 mg IV twice daily, patient does still avoid Addendum: Pleural effusion was concerning for exudative. Glucose <4, PH <6.2. Nucleated cells >65,000 . Concerning for empyema/parapneumonic pleural effusion. CT Chest with large loculated L ple ural effusion. Unable to perform thoracotomy at this facility will need to transfer. Type II [place] Patient reported atypical symptoms of chest pain. EKG with right bundle branch block, no a cute ischemic changes noted. 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 Muñoz, greatly appreciate recommendations, plan for HD tomorrow Utn-hvjxzqs-fbljvpksp diabetes type 2 Appears diet controlled, last A1c approximately 1 month ago 6.1, previously 9.1, 6.6 -Insulin sliding scale, carb diet Hypertension Unclear compliance with home medications -Patient does report being on clonidine 0.3 mg patch, continue losartan -Holding amlodipine, labetalol, patient unclear if taking these medications Anemia secondary to end-stage renal disease -Erythropoietin in outpatient setting -We will continue to trend Hypothyroidism -Continue Synthroid FEN: Renal, Carb, fluid/sodium restriction PPX: HSQ Disp: PT/OT not yet ordered CMS Documentation I expect this patient will be hospitalized for greater than 2-midnights and expect the post -hospital plan to be discharge to home or to an adult foster home. Electronically signed by: Olegario Peng MD 10/30/2019 2:37 PM [facility] documented in this e ncounter ED Notes Nick Mendoza MD - 10/30/2019 6:45 PM PSTFormatting of this note might be different from t he original. I received signout from Dr. Laguna at change of shift. Briefly, Estefani Campos is a 74 y.o. female who is in the ED with loculated empyema. Sh e was going to be admitted here for thoracotomy. Anesthesia did not feel comfortable during the procedure here. Multiple facilities were called awaiting phone call from [facility]. Patient meanwhile started on cefepime and vancomycin. Patient will be transfe rred to [facility]. [facility] did not have any beds. PENDING: ED COURSE: IMPRESSION: 1. Pleural effusion 2. Congestive heart failure, unspecified HF chronicity, unspecified heart failure type (HCC ) 3. Elevated troponin Nick Mendoza MD 10/30/19 232 Yaw Amor MD - 12:28 PM PST Chief Complaint: Shortness of breath HPI: Estefani Campos is a 74 y.o. female who presents to the Emergency Department with shortne ss of breath that's been ongoing for the past 4-5 days. She's been wheezing. She's had jimmie e chest pain some pleuritic pain. No hemoptysis. She has history of end-stage renal diseas e. No new swelling. No syncope. She's had a dry cough. Past Medical and Surgical History: The patient has a past medical history of Anemia, Arthritis, Back pain, Breast cancer (HCC) , Cancer (HCC), Diabetes (HCC), Heart disease, Hemodialysis patient (HCC), History of blood clots, Hypercholesteremia, Hypertension, Hypothyroidism, Renal failure, Seasonal allergies, and Stroke (cerebrum) (HCC). The patient has a past surgical history that includes Mastectom y; Nose surgery; Eye surgery; Shunt Placement/Insertion (N/A, 11/08/2017); Hysterectomy; Appe ndectomy; Vein Surgery (Right, 01/04/2018); Shunt Placement/Insertion (Right, 02/04/2018); REM OVAL TUNNELED CATHETER (Right, 04/04/2018); hip surgery (Right, 12/04/2018); and other surgic al history (Right, 03/28/2019). Family and Social History: The patient's family history includes Cancer in her sister; Diabetes in some other family m embers. The patient reports that she has been smoking. She has never used smokeless tobacco. She reports that she does not drink alcohol or use drugs. 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 amLODIPine (NORVASC) 5 mg tablet Take 1 tablet by mouth 2 times daily. ARTIFICIAL TEAR SOLUTION OP Place 1-2 drops [...] 4 times daily (before meals and nightly). cetirizine (ZYRTEC) 10 mg tablet Take 5 mg by mouth Daily. For allergies Cholecalciferol 4000 units TABS Take 4,000 Units by mouth Daily. cloNIDine (CATAPRES) 0.3 mg/[address] 1 patch onto the skin Once a week. epoetin karthik (EPOGEN) 10,000 units/mL injection Inject 15,000 Units into the vein Three times a week. furosemide (LASIX) 80 mg tablet Take 2 tablets by mouth 2 times daily. gabapentin (NEURONTIN) 100 mg capsule Take 2 capsules by mouth every morning. Insulin Pen Needle 31G X 5 MM MISC by Does not apply route. labetalol (NORMODYNE) 300 MG tablet Take 1 tablet by mouth 2 times daily. Lancets MISC by Does not apply route. levothyroxine (SYNTHROID, LEVOTHROID) 75 MCG tablet Take 75 mcg by mouth every morning (before breakfast). losartan (COZAAR) 100 MG tablet Take 1 tablet by mouth Daily. melatonin 3 mg TABS Take 1 tablet by mouth nightly as needed for Insomnia. olopatadine (PATANOL) 0.1% ophthalmic solution Place 1-2 drops into both eyes 2 times d aily. pantoprazole (PROTONIX) 40 mg tablet Take 40 mg by mouth every morning (before breakfas t). traMADol (ULTRAM) 50 mg tablet Take 1 tablet by mouth every 8 hours as needed. Allergies: Allergies Allergen Reactions Amoxicillin Other (See Comments) Patient stated she can't tolerate amoxicillin and stated its hard on her stomach. Lisinopril Pt states she does not remember what was the reaction she had to lisinopril. I asked her if it gave her a cough and she said "I cant remember, maybe it made me sick to my stomach". Naprosyn [Naproxen] Review of Systems: Positive findings in the HPI, all other systems were reviewed and are negative Physical Examination: VITAL SIGNS: (first vital signs):Temp: 37.6 C (99.7 F) Pulse: 90 Resp: 18 SpO2: 93 % BP : 133/64 General: Alert, appears chronically ill and dyspneic, non toxic Eyes::EOMI, no Ptosis ENMT: Normocephalic, atraumatic, OP dry Neck: Supple, full range of motion, no tracheal deviation Cardiovascular: Normal rate and rhythm, no murmurs, rubs or gallops Respiratory: Wheezes in all lung gaytan and decreased sounds on the left, tachypnea, increa sed work of breathing GI: Abdomen soft, non tender, no rebound or guarding Musculoskeletal: normal ROM, 2+ edema, no cyanosis Neurologic: Alert, no cranial nerve deficits, no focal deficits Skin: warm and dry, no ulcerations ECG: (Interperted by me) Sinus rhythm, short [place], right bundle branch block, 90 bpm, no other acute, similar to previ ous Labs: CBC: unremarkable CMP: Chronic renal failure, sodium 128 otherwise unremarkable BNP: Greater than 5000 similar to previous Troponin: Elevated 0.32 Influenza positive INR 1.3 Imaging: (Xrays interpreted by me) X-ray chest reveals large left effusion Ultrasound-guided thoracentesis pending ED Course & Medical Decision Making: Patient here with dyspnea. She has a large left pleural effusion. She has known pleural e ffusion secondary to renal failure and as needed thoracentesis in the past. Currently plan for thoracentesis. She also noted to have elevated BNP. This is been elevated significantl y in the past. She is influenza positive and has elevated troponin 0.32 with EKGs and is re assuring. She is treated with antiviral medication. Discussed the hospitalist for further evaluation management. 4:51 PM after further evaluation of the pleural fluid concern for empyema. After hospice e valuation and feel she may need transfer to where she did get thoracotomy for drainage. Disposition: Feliberto Campos remained in the emergency department as I reached the end of my shift. I s igned out care to Dr. Mendoza - please refer to their documentation for the next portion of raul Campos's ED course. Plan of care at the time of sign out was: Follow-up with [facility] may have beds later tonight, working on transfer to eat up in the [facility] ntime. Final Impression: Dyspnea with pleural effusion CHF Elevated troponin Yaw Laguna MD 10/30/19 1441 Yaw Laguna MD 10/30/19 1651 Yaw Laguna MD 10/30/19 1740 Melani Gross RN - 11:49 AM PSTArrives from home with 4 days of cough, SOB and CP. Reports cough is p roductive. documented in this encounter Miscellaneous Notes Plan of Care - Tahmina Avila - 10/30/2019 2:02 PM PSTDischarge Planning: This CM Asst. Spoke with Estefani at her bedside. She states she has no stairs. She has a wal k in shower with no grab bars nearby. She states she lives with her sister. She states she's independent but needs some assistance with ADL's and she can drive herself where she needs to go. DME: [facility]: [facility] Transportation: Her son Azael Plan: Hospital Admit Electronically signed by: Tahmina Avila 10/30/2019 2:07 PM documented in this enco unter Plan of Treatment + +------+--------+ + + | Name | Type | Priori | Associated Diagnoses | Date/Time | | | | ty | | | + +------+--------+ + + | ED INFORMATION | [facility]ST[facility] | Routin | | 10/30/2019 11:36 AM | | EXCHANGE | | e | | PST | + +------+--------+ + + documented as of this encounter Procedures + +--------+ + + + | Procedure Name | Priori | Date/Time | Associated Diagnosis | Comments | | | ty | | | | + +--------+ + + + | ECG 12 LEAD | STAT | 10/31/2019 | | Results for this | | | | 6:39 AM | | procedure are in the | | | | PST | | results section. | + +--------+ + + + | TROPONIN I | Routin | 10/30/2019 | | Results for this | | | e | 10:23 PM | | procedure are in the | | | | PST | | results section. | + +--------+ + + + | CULTURE, BLOOD | Routin | 10/30/2019 | | Results for this | | | e | 4:17 PM | | procedure are in the | | | | PST | | results section. | + +--------+ + + + | TROPONIN I | Routin | 10/30/2019 | | Results for this | | | e | 4:11 PM | | procedure are in the | | | | PST | | results section. | + +--------+ + + + | CULTURE, BLOOD | Routin | 10/30/2019 | | Results for this | | | e | 4:11 PM | | procedure are in the | | | | PST | | results section. | + +--------+ + + + | CT CHEST WO CONTRAST | STAT | 10/30/2019 | | Results for this | | | | 3:51 PM | | procedure are in the | | | | PST | | results section. | + +--------+ + + + | CULTURE, BODY FLUID, | Routin | 10/30/2019 | | Results for this | | AEROBE | e | 3:29 PM | | procedure are in the | | | | PST | | results section. | + +--------+ + + + | LACTATE | Routin | 10/30/2019 | | Results for this | | DEHYDROGENASE, BODY | e | 3:29 PM | | procedure are in the | | FLUID | | PST | | results section. | + +--------+ + + + | CULTURE, BODY FLUID, | Routin | 10/30/2019 | | Results for this | | ANAEROBE | e | 3:29 PM | | procedure are in the | | | | PST | | results section. | + +--------+ + + + | CULTURE, BODY FLUID, | Routin | 10/30/2019 | | Results for this | | ANAEROBE | e | 3:29 PM | | procedure are in the | | | | PST | | results section. | + +--------+ + + + | CELL COUNT WITH | Routin | 10/30/2019 | | Results for this | | DIFFERENTIAL, BODY | e | 3:29 PM | | procedure are in the | | FLUID | | PST | | results section. | + +--------+ + + + | PROTEIN, BODY FLUID | Routin | 10/30/2019 | | Results for this | | | e | 3:29 PM | | procedure are in the | | | | PST | | results section. | + +--------+ + + + | GLUCOSE, BODY FLUID | Routin | 10/30/2019 | | Results for this | | | e | 3:29 PM | | procedure are in the | | | | PST | | results section. | + +--------+ + + + | PH, BODY FLUID | Routin | 10/30/2019 | | Results for this | | | e | 3:29 PM | | procedure are in the | | | | PST | | results section. | + +--------+ + + + | US GUIDED | STAT | 10/30/2019 | | Results for this | | THORACENTESIS WO | | 3:27 PM | | procedure are in the | | CHEST TUBE | | PST | | results section. | + +--------+ + + + | PROTIME INR | STAT | 10/30/2019 | | Results for this | | | | 1:40 PM | | procedure are in the | | | | PST | | results section. | + +--------+ + + + | INFLUENZA A AND B | STAT | 10/30/2019 | | Results for this | | RNA, NAAT | | 1:02 PM | | procedure are in the | | | | PST | | results section. | + +--------+ + + + | CBC W/AUTO | STAT | 10/30/2019 | | Results for this | | DIFFERENTIAL | | 12:59 PM | | procedure are in the | | | | PST | | results section. | + +--------+ + + + | TROPONIN I | STAT | 10/30/2019 | | Results for this | | | | 12:59 PM | | procedure are in the | | | | PST | | results section. | + +--------+ + + + | B TYPE NATRIURETIC | STAT | 10/30/2019 | | Results for this | | PEPTIDE | | 12:59 PM | | procedure are in the | | | | PST | | results section. | + +--------+ + + + | LACTATE | Add-On | 10/30/2019 | | Results for this | | DEHYDROGENASE | | 12:59 PM | | procedure are in the | | | | PST | | results section. | + +--------+ + + + | COMPREHENSIVE | STAT | 10/30/2019 | | Results for this | | METABOLIC PANEL | | 12:59 PM | | procedure are in the | | | | PST | | results section. | + +--------+ + + + | XR CHEST AP PORTABLE | STAT | 10/30/2019 | | Results for this | | | | 12:46 PM | | procedure are in the | | | | PST | | results section. | + +--------+ + + + | ED INFORMATION | Routin | 10/30/2019 | | | | EXCHANGE | e | 11:36 AM | | | | | | PST | | | + +--------+ + + + +---+--------+ | | | | | Proced | | | ure | | | Note - | | | Julian, | | | Lab In | | | | | | Hlseve | | | n - | | | | | | 2019 | | | 11:37 | | | AM PST | | | | | | Format [...] | | | FICATI | | | ON?/ | | | 17/202 | | | 0 | | | 11:35? | | | WILLIA | | | MS, | | | ESTEFANI | | | | | | R?MRN: | | | | | | [id number] | | | [id number] | | | riteri | | | a Met | | | | | | Histor | | | y of | | | Sepsis | | | | | | DxSecu | | | rity | | | and | | | [...] | | | system | | | .Flags | | | | | | Histor | | | y of | | | Sepsis | | | - | | | Patien | | | t has | | | receiv | | | ed a | | | diagno | | | sis of | | | | | | Sepsis | | | from | | | an | | | acute | | | or | | | post-a | | | cute | | | settin | | | g. | | | Apply | | | approp | | | riate | | | clinic | | | al | | | planni | | | ng | | | practi | | | theresa; | | | to | | | learn | | | more | | | visit | | | [email or web address].go | | | v/seps | | | is/cli | | | nicalt | | | ools / | | | | | | Attrib | | | uted | | | By: | | | Collec | | | tive | | | Medica | | | l / | | | Attrib | | | uted | | | On: | | | 01/02/ | | | 2020 | | | | | | [facility] | | | ED | | | Dispar | | | ity | | | Measur | | | e - | | | [facility] | | | has | | | develo | | | ped a | | | flag | | | (Orego | | | n ED | | | Dispar | | | ity | | | Measur | | | e) to | | | help | | | suppor | | | t | | | Medica | | | id | | | member | | | s with | | | | | | mental | | | | | | illnes | | | s. | | | [facility] | | | | | | [facility] | | | | | | Author | | | ity | | | uses | | | claims | | | data | | | with a | | | | | | 36-mon | | | th | | | humberto | | | g look | | | back | | | period | | | to | | | identi | | | fy | | | member | | | s who | | | have | | | had | | | two or | | | more | | | diagno | | | ses of | | | | | | mental | | | | | | illnes | | | s | | | (does | | | not | | | need | | | to be | | | primar | | | y) in | | | any | | | settin | | | g | | | (e.g. | | | ED, | | | Inpati | | | ent, | | | primar | | | y | | | care). | | | | | | Flagge | | | d | | | member | | | s are | | | includ | | | ed in | | | the ED | | | | | | Dispar | | | ity | | | Measur | | | e | | | denomi | | | nator | | | popula | | | tion. | | | Flags | | | are | | | update | | | d | | | weekly | | | . / | | | Attrib | | | uted | | | By: | | | [facility] | | | | | | [facility] | | | | | | Author | | | ity | | | (OHA) | | | / | | | Attrib | | | uted | | | On: | | | 01/14/ | | | 2020 | | | Prescr | | | iption | | | Drug | | | Report | | | (12 | | | Mo.)Rx | | | | | | Detail | | | sFill | | | Date | | | Drug | | | Descri | | | ption | | | Qty. | | | Prescr | | | iber | | | CS MED | | | | | | 2019-0 | | | 7-19 | | | OXYCOD | | | ONE | | | HCL 5 | | | MG | | | TABLET | | | 40 | | | LANDON | | | | | | RAFTER | | | 2 | | | 42.857 | | | Rx | | | Summar | | | yMetri | | | c | | | Count | | | CS | | | II-V | | | Rx 1 | | | CS-II | | | Rx 1 | | | Quanti | | | ty | | | Dispen | | | sed 40 | | | | | | Unique | | | | | | Prescr | | | ibers | | | 1 | | | Unique | | | | | | Pharma | | | cies 1 | | | | | | Benzos | | | 0 | | | Opioid | | | s 1 | | | Long | | | Acting | | | | | | Opioid | | | s 0 | | | E.D. | | | Visit | | | [...] | | | Center | | | 3 0 | | | [facility] | [facility] | [facility] | [facility] | | | [facility] | | | al 10 | | | 0 | | | Total | | | 14 0 | | | Note: | | [...] | | | Summar | | | yShowi | | | ng 10 | | | most | | | recent | | | | | | visits | | | out | | | of 14 | | | in the | | | past | | | 12 | | | months | | | Date | | | Facili | | | ty | | | City | | | State | | | Type | | | Diagno | | | ses or | | | Chief | | | | | | Compla | | | int | | | Feb | | | 17, | | | 2020 | | | [facility] | | | ence | | | [facility] [place] | | | [place] | | | Emerge | | | ncy | | | SOB | | | Reyes 6, | | | 2020 | | | Prov[facility] | | | ence | | | [facility] [place] | | | [place] | | | Emerge | | | ncy | | | | | | Edema/ | | | SOB | | | | | | Shortn | | | ess of | | | | | | Breath | | | | | | End | | | stage | | | renal | | | diseas | | | e 1 | | | Type | | | 2 | | | diabet | | | es | | | mellit | | | us w | | | diabet | | | ic | | | chroni | | | c | | | kidney | | | | | | diseas | | | e 1 | | | | | | Chroni | | | c | | | kidney | | | | | | diseas | | | e, | | | stage | | | 4 | | | (sever | | | e) | | | Hypoth | | | yroidi | | | sm, | | | unspec | | | ified | | | | | | Long | | | term | | | (curre | | | nt) | | | use of | | | | | | insuli | | | n | | | Fluid | | | overlo | | | ad, | | | unspec | | | ified | | | | | | Depend | | | ence | | | on | | | renal | | | dialys | | | is | | | Locali | | | zed | | | edema | | | Dec | | | 27, | | | 2019 | | | [facility] [place] | | | Emerge | | | ncy | | | | | | Allerg | | | y | | | status | | | to | | | oth | | | drug/m | | | eds/bi | | | ol | | | subst | | | status | | | | | | Chroni | | | c | | | kidney | | | | | | diseas | | | e, | | | unspec | | | ified | | | | | | Major | | | depres | | | sive | | | disord | | | er, | | | single | | | | | | episod | | | e, | | | unspec | | | ified | | | | | | Hypoth | | | yroidi | | | sm, | | | unspec | | | ified | | | 1 | | | Type 2 | | | | | | diabet | | | es | | | mellit | | | us | | | with | | | diabet | | | ic | | | neurop | | | athy, | | | unsp | | | | | | Depend | | | ence | | | on | | | renal | | | dialys | | | is | | | Allerg | | | y | | | status | | | to | | | analge | | | sic | | | agent | | | status | | | | | | Long | | | term | | | (curre | | | nt) | | | use of | | | | | | aspiri | | | n | | | Athscl | | | heart | | | | | | diseas | | | e of | | | ysleta del sur | | | | | | mckeon | | | ry | | | artery | | | w/o | | | ang | | | pctrs | | | 1 | | | Type 2 | | | | | | diabet | | | es | | | mellit | | | us w | | | diabet | | | ic | | | chroni | | | c | | | kidney | | | | | | diseas | | | e Dec | | | 12, | | | 2019 | | | [facility] [place] | [place] | | | Emerge | | | ncy | | | | | | Hypoth | | | yroidi | | | sm, | | | unspec | | | ified | | | 1 | | | Hyp | | | chr | | | kidney | | | | | | diseas | | | e w | | | stage | | | 5 chr | | | kidney | | | | | | diseas | | | e or | | | ESRD | | | 1 | | | Type 2 | | | | | | diabet | | | es | | | mellit | | | us w | | | diabet | | | ic | | | chroni | | | c | | | kidney | | | | | | diseas | | | e | | | Viral | | | infect | | | ion, | | | unspec | | | ified | | | 1 | | | Type 2 | | | | | | diabet | | | es | | | mellit | | | us | | | with | | | diabet | | | ic | | | neurop | | | athy, | | | unsp | | | | | | Hyperk | | | alemia | | | | | | Cough | | | End | | | stage | | | renal | | | | | | diseas | | | e | | | Depend | | | [...] | | | ified | | | Nov | | | 14, | | | 2019 | | | [facility] [place] | | | Emerge | | | ncy | | | | | | Allerg | | | y | | | status | | | to | | | analge | | | sic | | | agent | | | status | | | | | | Allerg | | | y | | | status | | | to | | | oth | | | drug/m | | | eds/bi | | | ol | | | subst | | | status | | | | | | Shortn | | | ess of | | | | | | breath | | | 1 | | | Type 2 | | | | | | diabet | | | es | | | mellit | | | us | | | with | | | diabet | | | ic | | | neurop | | | athy, | | | unsp | | | | | | Hypoth | | | yroidi | | | sm, | | | unspec | | | ified | | | | | | Long | | | term | | | (curre | | | nt) | | | use of | | | | | | aspiri | | | n | | | Major | | | [...] ension | | | | | | Pleura | | | l | | | effusi | | | on, | | | not | | | elsewh | | | ere | | | classi | | | fied | | | | | | Athscl | | | heart | | | | | | diseas | | | e of | | | ysleta del sur | | | | | | mckeon | | | ry | | | artery | | | w/o | | | ang | | | pctrs | | | Oct | | | 8, | | | 2019 | | | [facility] | | | [facility] | | | Emerge | | | ncy | | | | | | Diffic | | | ulty | | | Breath | | | ing | | | | | | Shortn | | | ess of | | | | | | Breath | | | | | | End | | | stage | | | renal | | | diseas | | | e | | | Hyperk | | | alemia | | | Sep | | | 7, | | | 2019 | | | [facility] [place] | [place] | | | Emerge | | | ncy | | | | | | Shortn | | | ess of | | | | | | breath | | | | | | End | | | stage | | | renal | | | diseas | | | e | | | Allerg | | | y | | | status | | | to | | | analge | | | sic | | | agent | | | status | | | | | | Person | | | al | | | histor | | | y of | | | malign | | | ant | | | neopla | | | sm of | | | breast | | | | | | Allerg | | | y | | | status | | | to | | | oth | | | drug/m | | | eds/bi | | | ol | | | subst | | | status | | | | | | Depend | | | ence | | | on | | | renal | | | dialys | | | is | | | Allerg | | | y | | | status | | | to | | | other | | | anti-i | | | nfecti | | | ve | | | agents | | | | | | status | | | | | | Long | | | term | | | (curre | | | nt) | | | use of | | | | | | aspiri | | | n 1 | | | Type | | | 2 | | | diabet | | | es | | | mellit | | | us | | | with | | | diabet | | | ic | | | catara | | | ct | | | 1 Hyp | | | hrt | | | and | | | chr | | | kdny | | | dis w | | | hrt | | | fail | | | and | | | stg | | | 1-4/un | | | sp chr | | | kdny | | | Aug | | | 19, | | | 2019 | | | [facility] 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 [place] | | [place] | | | Emerge | | | ncy | | | | | | Unspec [...] of | | | | | | aspiri | | | n | | | Hypoth | | | yroidi | | | sm, | | | unspec | | | ified | | | | | | Depend | | | ence | | | on | | | renal | | | dialys | | | is | | | Strain | | | of | | | muscle | | | , | | | fascia | | | and | | | tendon | | | at | | | neck | | | level, | | | init | | | 1 | | | Type 2 | | | | | | diabet | | | es | | | mellit | | | us | | | with | | | diabet | | | ic | | | neurop | | | athy, | | | unsp | | | | | | Contus | | | ion of | | | | | | unspec | | | ified | | | part | | | of | | | head, | | | initia | | | l | | | encoun | | | ter | | | | | | Essent | | | ial | | | (prima | | | ry) | | | hypert | | | ension | | | | | | Allerg | | | y | | | status | | | to | | | analge | | | sic | | | agent | | | status | | | 1 | | | Type 2 | | | | | | diabet | | | es | | | mellit | | | us | | | with | | | diabet | | | ic | | | catara | | | ct | | | Thomas | | | 23, | | | 2019 | | | [facility] [place] | | [place] | | | Emerge | | | ncy | | | | | | Allerg | | | y | | | status | | | to | | | oth | | | drug/m | | | eds/bi | | | ol | | | subst | | | status | | | | | | Weakne | | | ss | | | Person | | | [...] | | therap | | | y 1 | | | Type | | | 2 | | | diabet | | | es | | | mellit | | | us | | | with | | | diabet | | | ic | | | neurop | | | athy, | | | unsp | | | | | | Hypoth | | | yroidi | | | sm, | | | unspec | | | ified | | | 1 | | | Hyp | | | chr | | | kidney | | | | | | diseas | | | e w | | | stage | | | 5 chr | | | kidney | | | | | | diseas | | | e or | | | ESRD | | | | | | Allerg | | | y | | | status | | | to | | | analge | | | sic | | | agent | | | status | | | 1 | | | Type 2 | | | | | | diabet | | | es | | | mellit | | | us w | | | diabet | | | ic | | | chroni | | | c | | | kidney | | | | | | diseas | | | e 1 | | | Type | | | 2 | | | diabet | | | es | | | mellit | | | us | | | with | | | diabet | | | ic | | | catara | | | ct | | | Recent | | | [...] | | | int | | | Reyes 6, | | | 2020 | | | Prov[facility] | | | ence | | | [facility] | [facility] | [place] | | | [place] | | | Medica | | | l | | | Surgic | | | al | | | 1 Type | | | 2 | | | diabet | | | es | | | mellit | | | us w | | | diabet | | | ic | | | chroni | | | c | | | kidney | | | | | | diseas | | | e | | | Pleura | | | l | | | effusi | | | on, | | | not | | | elsewh | | | ere | | | classi | | | fied | | | | | | Depend | | | ence | | | on | | | renal | | | dialys | | | is | | | Long | | | term | | | (curre | | | nt) | | | use of | | | | | | insuli | | | n | | | End | | | stage | | | renal | | | diseas | | | e | | | Fluid | | | overlo | | | ad, | | | unspec | | | ified | | | | | | Locali | | | zed | | | edema | | | | | | Dyspne | | | a, | | | unspec | | | ified | | | | | | Hypoth | | | yroidi | | | sm, | | | unspec | | | ified | | | 1 | | | Chroni | | | c | | | kidney | | | | | | diseas | | | e, | | | stage | | | 4 | | | (sever | | | e) | | | Oct 8, | | | 2019 | | | [facility] | | | [place] | | | ID | | | Cardio | | | logy | | | | | | Hyperk | | | alemia | | | | | | Other | | | fluid | | | overlo | | | ad | | | Sep 7, | | | 2019 | | | [facility] | | | ence | | | [facility] | | | [facility] | [place] 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 | | | e, | | | unspec | | | ified | | | End | | | stage | | | renal | | | | | | diseas | | | e | | | Depend | | | ence | | | on | | | renal | | | dialys | | | is | | | Anemia | | | in | | | chroni | | | c | | | kidney | | | | | | diseas | | | e | | | Hypert | | | ensive | | | | | | urgenc | | | y | | | Osteom | | | yeliti | | | s of | | | verteb | | | ra, | | | thorac | | | ic | | | region | | | | | | Essent | | | ial | | | (prima | | | ry) | | | hypert | | | ension | | | 1 | | | Type 2 | | | | | | diabet | | | es | | | mellit | | | us w | | | diabet | | | ic | | | chroni | | | c | | | kidney | | | | | | diseas | | | e Thomas | | | 12, | | | 2019 | | | [facility] [place] 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 [place] | [place] | | | S[facility]ic | | | al | | | Servic | | | es | | | Patien | | | t's | | | noncom | | | plianc | | | e w | | | oth | | | medica | | | l | | | treatm | | | ent | | | and | | | regime | | | n | | | Fractu | | | re of | | | unsp | | | part | | | of | | | neck | | | of | | | right | | | femur, | | | init | | | 1 | | | Type 2 | | | | | | diabet | | | es | | | mellit | | | us w | | | diabet | | | ic | | | chroni | | | c | | | kidney | | | | | | diseas | | | e | | | Long | | | term | | | (curre | | | nt) | | | use of | | | | | | insuli | | | n 1 | | | | | | Chroni | | | c | | | kidney | | | | | | diseas | | | e, | | | stage | | | 4 | | | (sever | | | e) | | | End | | | stage | | | renal | | | diseas | | | e | | | Renal | | | osteod | | | ystrop | | | hy | | | 1 | | | Chroni | | | c | | | kidney | | | | | | diseas | | | e, | | | stage | | | 1 | | | Hyp | | | chr | | | kidney | | | | | | diseas | | | e w | | | stage | | | 5 chr | | | kidney | | | | | | diseas | | | e or | | | ESRD | | | Fx | | | unsp | | | part | | | of nk | | | of r | | | femr, | | | subs | | | for | | | clos | | | fx w | | | routn | | | heal | | | Care | | | TeamPr | | | ovider | | | | | | Specia | | | lty | | | Phone | | | Fax | | | Servic | | | e | | | Dates | | | BOURRE | | | T, | | | HANSEL | | | N, PAC | | | | | | Physic | | | anderson | | | Assist | | | ant: | | | Surgic | | | al | | | Mar | | | 13, | | | 2019 - | | | | | | Curren | | | t | | | Unknow | | | n | | | Skille | | | d | | | Nursin | | | g | | | Facili | | | ty | | | (541) | | | [phone] | | | 74 | | | (541) | | | [phone] | | | 26 | | | Curren | | | t | | | [place] | | | ON, | | | [place] | | | L B, | | | MD | | | Family | | | | | | Medici | | | ne | | | (541) | | | [phone] | | | 65 | | | (541) | | | 215-15 | | | 67 Dec | | | 30, | | | 2019 - | | [...] | | | t | | | THURMA | | | N, | | | COLLEE | | | N, | | | CUSTOMER SERVICE ASSISTANT-C | | | Nurse | | | Practi | | | tioner | | | ([phone]) | | | | | | [phone] | | | 66 | | | Thomas | | | 23, | | | 2019 - | | | | | | Curren | | | t | | | Unknow | | | n | | | Clinic | | | /Cente | | | r | | | ([phone]) | | | [phone] | | | 30 | | | Nov | | | 15, | | | 2019 - | | | | | | Curren | | | t | | | [facility] | | | [facility] | | | [facility] | | | | | | [facility] [...] | | | https: | | | //prov | | | .colle | | | ctivem | | | edical | | | [email or web address] | | | otify/ | | | [phone] | | | [phone] | | | [phone] | | | [phone] | | | [phone] | | | [phone] | | | | | | PLEASE | | | [...] | | | ed.? | | | 2019 | | | [facility] | | | tive | | | Medica | | | l | | | Techno | | | logies | | | , Inc[employer] | | | - | | | [email or web address] | | | llecti | | | vemedi | | | [email or web address] | | | m | +---+--------+ + +--------+ +---+ + | MEDICAL CYTOLOGY | Routin | 10/30/2019 | | Results for this | | | e | 12:00 AM | | procedure are in the | | | | PST | | results section. | + +--------+ +---+ + documented in this encounter Results ECG 12 lead (10/31/2019 6:39 AM PST) + + + + + + | Component | Value | Ref Range | Performed | Pathologist | | | | | At | Signature | + + + + + + | VENTRICULAR | 90 | BPM | [facility] | | | RATE EKG | | | | | + + + + + + | ATRIAL RATE | 90 | BPM | [facility] | | + + + + + + | P-R | 106 | ms | [facility] | | | INTERVAL | | | | | + + + + + + | QRS | 144 | ms | [facility] | | | DURATION | | | | | + + + + + + | Q-T | 402 | ms | [facility] | | | INTERVAL | | | | | + + + + + + | Q-T | 491 | ms | [facility] | | | INTERVAL | | | | | | (CORRECTED) | | | | | + + + + + + | P WAVE AXIS | 54 | degrees | [facility] | | + + + + + + | QRS AXIS | 138 | degrees | [facility] | | + + + + + + | T AXIS | 40 | degrees | [facility] | | + + + + + + | INTERPRETAT | Sinus rhythm with short | | [facility] | | | ION TEXT | PRRight bundle branch | | | | | | blockPossible Septal | | | | | | infarct , age | | | | | | undeterminedAbnormal | | | | | | ECGWhen compared with | | | | | | ECG of 18-SEP-2019 | | | | | | 15:00,premature | | | | | | supraventricular | | | | | | complexes are no longer | | | | | | presentCriteria for | | | | | | Possible Septal infarct | | | | | | is now presentConfirmed | | | | | | by KEN ELLISON MD | | | | | | ([id number]) on 10/31/2019 | | | | | | 6:39:09 AM | | | | + + [...] | + +---------+ + + Troponin I (10/30/2019 10:23 PM PST) + + + + + + | Component | Value | Ref Range | Performed | Pathologist | | | | | At | Signature | + + + + + + | Troponin I | 0.28 (H)Comment: | <0.06 ng/mL | [facility] | | | | Comment:Reference | | [facility] | | | | Ranges: 0.00-0.06 = | | MEDICAL | | | | NORMAL >0.06 = | | CENTER - | | | | SUSPICIOUS FOR | | LABORATORY | | | | MYOCARDIAL DAMAGE NOTE: | | | | | | Values greater than | | | | | | 0.78 ng/mL have been | | | | | | shown to be strongly | | | | | | associated with acute | | | | | | myocardial infarction. | | | | | | [employer] | | | | | [...] | [facility] | [address] | [place] | [phone] | | [facility] | | [address] | | | - LABORATORY | | | | + + + + + Culture, Blood (10/30/2019 4:17 PM PST) + + + + + [...] [address] | [place] | [phone] | | [facility] | | [address] | | | - LABORATORY | | | | + + + + + Troponin I (10/30/2019 4:11 PM PST) + + + + + + | Component | Value | Ref Range | Performed | Pathologist | | | | | At | Signature | + + + + + + | Troponin I | 0.33 (H)Comment: | <0.06 ng/mL | [facility] | | | | Comment:Reference | | [facility] | | | | Ranges: 0.00-0.06 = | | MEDICAL | | | | NORMAL >0.06 = | | CENTER - | | | | SUSPICIOUS FOR | | LABORATORY | | | | MYOCARDIAL DAMAGE NOTE: | | | | | | Values greater than | | | | | | 0.78 ng/mL have been | | | | | | shown to be strongly | | | | | | associated with acute | | | | | | myocardial infarction. | | | | | | [employer] | | | | | [...] + + + + + | [facility] | [address] | [place] | [phone] | | [facility] | | [address] | | | - LABORATORY | | | | + + + + + Culture, Blood (10/30/2019 4:11 PM PST) + + + + + [...] | + + + + + | [facility] | [address] | [place], [place] | [phone] | | [facility] | | [address] | | | - LABORATORY | | | | + + + + + CT Chest wo Contrast (10/30/2019 3:51 PM PST) + + | Specimen | + + | | + + + + + | Impressions | Performed At | + + + | Large loculated left pleural effusion with significant compressive | [facility] | | atelectasis. Borderline mediastinal lymphadenopathy. Extensive | | | coronary calcium. Prominent pulmonary arteries suggestive of | | | pulmonary hypertension. Moderate diffuse anasarca. Previously | | | described endplate erosion/irregularity and adjacent vertebral | | | sclerosis at T11-12 appearing stable compared to 05/21/2019. Underlying | | | discitis and osteomyelitis remain a concern. Dictated and Signed | | | by: Salvatore Nunez MD Electronically signed: 10/30/2019 4:17 PM | | + + + + + + | Narrative | Performed At | + + + | CT CHEST WO CONTRAST 10/30/2019 3:51 PM HISTORY: Shortness of | [facility] | | breath. COMPARISON: Multiple priors. PROTOCOL: Axial images of | | | the chest were obtained. Coronal and sagittal reformations were | | | acquired. FINDINGS: Neck base is normal. Heart size is at the | | | upper limits of normal. Extensive coronary calcium is present. There | | | is moderate to severe atherosclerosis of the aorta extending into | | | the branches. The pulmonary arteries are prominent, suggestive of | | | pulmonary arterial hypertension. SVC is normal. Borderline lymph | | | nodes are noted in the paratracheal and precarinal region measuring | | | up to 1.2 cm short axis (image 45). The aria and axilla are | | | unremarkable. Trachea and esophagus demonstrate no acute findings. | | | There is a large loculated left pleural effusion with significant | | | compressive atelectasis. This mild scarring is in the right middle | | | lobe. Some scattered calcified granulomas are in the left hepatic | | | lobe. There is moderate diffuse anasarca. 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 Diffuse osteopenia is present. There | | | are degenerative changes of the sternoclavicular joints. Previously | | | described endplate erosion/irregularity and adjacent vertebral | | | sclerosis at T11-12 appear stable compared to 05/21/2019. Moderate to | | | severe disc space narrowing is again evident at T10-11, without | | | endplate irregularity. There is multilevel thoracic spondylosis | | | otherwise. | | + + + + + | Procedure Note | + + | Julian, Rad Results In - 10/30/2019 4:[address] CHEST WO CONTRAST 10/30/2019 3:51 PM | | | | HISTORY: Shortness of breath. | | | | COMPARISON: Multiple priors. | | | | PROTOCOL: Axial images of the chest were obtained. Coronal and sagittal | | reformations were acquired. | | | | FINDINGS: | | Neck base is normal. | | | | Heart size is at the upper limits of normal. Extensive coronary calcium is | | present. There is moderate to severe atherosclerosis of the aorta extending into | | the branches. The pulmonary arteries are prominent, suggestive of pulmonary | | arterial hypertension. SVC is normal. | | | | Borderline lymph nodes are noted in the paratracheal and precarinal region | | measuring up to 1.2 cm short axis (image 45). The aria and axilla are | | unremarkable. Trachea and esophagus demonstrate no acute findings. | | | | There is a large loculated left pleural effusion with significant compressive | | atelectasis. This mild scarring is in the right middle lobe. | | | | Some scattered calcified granulomas are in the left hepatic lobe. | | | | There is moderate diffuse anasarca. Changes of left mastectomy are again | | apparent. Diffuse osteopenia is present. There are degenerative changes of the | | sternoclavicular joints. Previously described endplate erosion/irregularity and | | adjacent vertebral sclerosis at T11-12 appear stable compared to 05/21/2019. | | Moderate to severe disc space narrowing is again evident at T10-11, without | | endplate irregularity. There is multilevel thoracic spondylosis otherwise. | | | | IMPRESSION: | | Large loculated left pleural effusion with significant compressive atelectasis. | | | | Borderline mediastinal lymphadenopathy. | | | | Extensive coronary calcium. | | | | Prominent pulmonary arteries suggestive of pulmonary hypertension. | | | | Moderate diffuse anasarca. | | | | Previously described endplate erosion/irregularity and adjacent vertebral | | sclerosis at T11-12 appearing stable compared to 05/21/2019. Underlying discitis | | and osteomyelitis remain a concern. | | | | Dictated and Signed by: Salvatore Nunez MD | | Electronically signed: 10/30/2019 4:17 PM | + + + +---------+ + + | Performing | Address | City/State/Zipcode | Phone Number | | Organization | | | | + +---------+ + + | [facility] | | | | + +---------+ + + Glucose, Body Fluid (10/30/2019 3:29 PM PST) + + + + + + | Component | Value | Ref Range | Performed | Pathologist | | | | | At | Signature | + + + + + + | Glucose, | <4 | mg/dL | [facility] | | | Body Fluid | | | [facility] | | | | | | MEDICAL | | | | | | CENTER - | | | | | | LABORATORY | | + + + + + + | Specimen | Pleural Fluid, Left | | [facility] | | | Source | | | [facility] | | | | | | MEDICAL | | | | | | CENTER - | | | | | | LABORATORY | | + + + + + + + + | Specimen | + + | Body Fluid - Pleural | | fluid specimen | | (specimen) | + + + + + + + | Performing | Address | City/State/Zipcode | Phone Number | | Organization | | | | + + + + + | [facility] | [address] | [place] | [phone] | | [facility] | | [address] | | | - LABORATORY | | | | + + + + + PH, Body Fluid (10/30/2019 3:29 PM PST) + + + + + + | Component | Value | Ref Range | Performed | Pathologist | | | | | At | Signature | + + + + + + | Specimen | Pleural Fluid, Left | | [facility] | | | Source | | | [facility] | | | | | | MEDICAL | | | | | | CENTER - | | | | | | LABORATORY | | + + + + + + | pH, Body | <6.3 (L) | 6.9 - 7.6 | [facility] | | | Fluid | | | [facility] | | | | | | MEDICAL | | | | | | CENTER - | | | | | | LABORATORY | | + + + + + + | Comment | Out of reportable range | | [facility] | | | | | | [facility] | | | | | | MEDICAL | | | | | | CENTER - | | | | | | LABORATORY | | + + + + + + + + | Specimen | + + | Body Fluid - Pleural | | fluid specimen | | (specimen) | + + + + + | Narrative | Performed At | + + + | Out of reportable range | [facility] | | | [facility] | | | [facility] | | | - LABORATORY | + + + + + + + + | Performing | Address | City/State/Zipcode | Phone Number | | Organization | | | | + + + + + | [facility] | [address] | [place], [place] | [phone] | | [facility] | | [address] | | | - LABORATORY | | | | + + + + + Culture, Body Fluid, Anaerobe (10/30/2019 3:29 PM PST) + + + + + + | Component | Value | Ref Range | Performed | Pathologist | | | | | At | Signature | + + + + + + | Culture | No anaerobes isolated. | | [facility] | | | | | | [facility] | | | | | | MEDICAL | | | | | | CENTER - | | | | | | LABORATORY | | + + + + + + + + | Specimen | + + | Body Fluid - Pleural | | fluid specimen | | (specimen) | + + + + + + + | Performing | Address | City/State/Zipcode | Phone Number | | Organization | | | | + + + + + | [facility] | [address] | [place] | [phone] | | [facility] | | [address] | | | - LABORATORY | | | | + + + + + Culture, Body Fluid, Aerobe (10/30/2019 3:29 PM PST) + + + + + + | Component | Value | Ref Range | Performed | Pathologist | | | | | At | Signature | + + + + + + | Culture | 4+ Streptococcus | | [facility] | | | | infantarius | | [facility] | | | | | | MEDICAL | | | | | | CENTER - | | | | | | LABORATORY | | + + + + + + | Culture | 4+ Streptococcus | | [facility] | | | | pasteurianus | | [facility] | | | | | | MEDICAL | | | | | | CENTER - | | | | | | LABORATORY | | + + + + + + | Gram Stain | 4+ White Blood Cells | | [facility] | | | Result | | | [facility] | | | | | | MEDICAL | | | | | | CENTER - | | | | | | LABORATORY | | + + + + + + | Gram Stain | 3+ Gram positive cocci | | [facility] | | | Result | | | [facility] | | | | | | MEDICAL | | | | | | CENTER - | | | | | | LABORATORY | | + + + + + + + + | Specimen | + + | Body Fluid - Pleural | | fluid specimen | | (specimen) | + + + + +--------+ + | Organism | Antibiotic | Method | Susceptibility | + + +--------+ + | Streptococcus | Ampicillin | | <=0.25 ug/mL: | | infantarius | | | Sensitive | + + +--------+ + | Streptococcus | Clindamycin | | >=1 ug/mL: | | infantarius | | | Resistant | + + +--------+ + | Streptococcus | Erythromycin | | >=8 ug/mL: | | infantarius | | | Resistant | + + +--------+ + | Streptococcus | Levofloxacin | | 2 ug/mL: Sensitive | | [facility] | | | | + + +--------+ + | Streptococcus | Linezolid | | <=2 ug/mL: | | infantarius | | | Sensitive | + + +--------+ + | Streptococcus | Moxifloxacin | | 0.25 ug/mL: | | infantarius | | | Sensitive | + + +--------+ + | Streptococcus | Penicillin G | | 0.12 ug/mL: | | infantarius | | | Sensitive | + + +--------+ + | Streptococcus | Tetracycline | | >=16 ug/mL: | | infantarius | | | Resistant | + + +--------+ + | Streptococcus | Tigecycline | | <=0.06 ug/mL: | | infantarius | | | Sensitive | + + +--------+ + | Streptococcus | Vancomycin | | <=0.12 ug/mL: | | infantarius | | | Sensitive | + + +--------+ + | Streptococcus | Ampicillin | | <=0.25 ug/mL: | | pasteurianus | | | Sensitive | + + +--------+ + | Streptococcus | Clindamycin | | >=1 ug/mL: | | pasteurianus | | | Resistant | + + +--------+ + | Streptococcus | Erythromycin | | >=8 ug/mL: | | pasteurianus | | | Resistant | + + +--------+ + | Streptococcus | Levofloxacin | | 4 ug/mL: | | pasteurianus | | | Intermediate | + + +--------+ + | Streptococcus | Linezolid | | <=2 ug/mL: | | pasteurianus | | | Sensitive | + + +--------+ + | Streptococcus | Moxifloxacin | | 0.5 ug/mL: | | pasteurianus | | | Sensitive | + + +--------+ + | Streptococcus | Penicillin G | | 0.12 ug/mL: | | pasteurianus | | | Sensitive | + + +--------+ + | Streptococcus | Tetracycline | | >=16 ug/mL: | | pasteurianus | | | Resistant | + + +--------+ + | Streptococcus | Tigecycline | | 0.12 ug/mL: | | pasteurianus | | | Sensitive | + + +--------+ + | Streptococcus | Vancomycin | | 0.25 ug/mL: | | pasteurianus | | | Sensitive | + + +--------+ + + + + + + | Performing | Address | City/State/Zipcode | Phone Number | | Organization | | | | + + + + + | [facility] | [address] | [place] | [phone] | | [facility] | | [address] | | | - LABORATORY | | | | + + + + + Protein, Body Fluid (10/30/2019 3:29 PM PST) + + + + + + | Component | Value | Ref Range | Performed | Pathologist | | | | | At | Signature | + + + + + + | Protein, | 4.0 | g/dL | [facility] | | | Body Fluid | | | [facility] | | | | | | MEDICAL | | | | | | CENTER - | | | | | | LABORATORY | | + + + + + + | Specimen | Comment: Pleural Fluid | | [facility] | | | Source | | | [facility] | | | | | | MEDICAL | | | | | | CENTER - | | | | | | LABORATORY | | + + + + + + + + | Specimen | + + | Body Fluid | + + + + + + + | Performing | Address | City/State/Zipcode | Phone Number | | Organization | | | | + + + + + | [facility] | [address] | [place] | [phone] | | [facility] | | [address] | | | - LABORATORY | | | | + + + + + Lactate Dehydrogenase, Body Fluid (10/30/2019 3:29 PM PST) + + + + + + | Component | Value | Ref Range | Performed | Pathologist | | | | | At | Signature | + + + + + + | Lactate | 3,720 | U/L | [facility] | | | Dehydrogena | | | [facility] | | | se, Body | | | MEDICAL | | | Fluid | | | CENTER - | | | | | | LABORATORY | | + + + + + + | Specimen | Comment: Pleural Fluid | | [facility] | | | Source | | | [facility] | | | | | | MEDICAL | | | | | | CENTER - | | | | | | LABORATORY | | + + + + + + + + | Specimen | + + | Body Fluid | + + + + + + + | Performing | Address | City/State/Zipcode | Phone Number | | Organization | | | | + + + + + | [facility] | [address] | [place] | [phone] | | [facility] | | [address] | | | - LABORATORY | | | | + + + + + Cell Count with Differential, Body Fluid (10/30/2019 3:29 PM PST) + + + + + + | Component | Value | Ref Range | Performed | Pathologist | | | | | At | Signature | + + + + + + | Specimen | Comment: Pleural fluid | | [facility] | | | Source | | | [facility] | | | | | | MEDICAL | | | | | | CENTER - | | | | | | LABORATORY | | + + + + + + | Color, Body | Yellow (A) | (none) | [facility] | | | Fluid | | | [facility] | | | | | | MEDICAL | | | | | | CENTER - | | | | | | LABORATORY | | + + + + + + | Appearance, | Cloudy (A) | Clear | [facility] | | | Body Fluid | | | [facility] | | | | | | MEDICAL | | | | | | CENTER - | | | | | | LABORATORY | | + + + + + + | Nucleated | 65,760 (H) | 0 - 150 | [facility] | | | Cells, Body | | cells/uL | [facility] | | | Fluid | | | MEDICAL | | | | | | CENTER - | | | | | | LABORATORY | | + + + + + + | Red Blood | 25,000 | Reference Range | [facility] | | | Cells, Body | | Not | [facility] | | | Fluid | | Established | MEDICAL | | | | | cells/uL | CENTER - | | | | | | LABORATORY | | + + + + + + | % | 28.2 | % | [facility] | | | Mononuclear | | | [facility] | | | Cells, | | | MEDICAL | | | Body Fluid | | | CENTER - | | | | | | LABORATORY | | + + + + + + | % | 71.8 | % | [facility] | | | Polymorphon | | | [facility] | | | uclear | | | MEDICAL | | | Cells, Body | | | CENTER - | | | Fluid | | | LABORATORY | | + + + + + + + + | Specimen | + + | Body Fluid | + + + + + + + | Performing | Address | City/State/Zipcode | Phone Number | | Organization | | | | + + + + + | [facility] | [address] | [place], [place] | [phone] | | [facility] | | [address] | | | - LABORATORY | | | | + + + + + US Guided Thoracentesis wo Chest Tube (10/30/2019 3:27 PM PST) + + | Specimen | + + | | + + + + + | Impressions | Performed At | + + + | 1. ULTRASOUND-GUIDED LEFT CHEST THORACENTESIS PRODUCING 1000 CC | [facility] | | OF FLUID DESCRIBED. Dictated and Signed by: Rolan Orellana, | | | MD Electronically signed: 10/30/2019 4:50 PM | | + + + + + + | Narrative | Performed At | + + + | Exam: US GUIDED THORACENTESIS WO CHEST TUBE dated 10/30/2019 12:20 PM | [facility] | | CLINICAL HISTORY: Effusion COMPARISON: Chest x-ray | | | 10/30/2019. Chest x-ray 09/20/2019. Ultrasound 09/18/2019. | | | PROCEDURE: After explaining the potential risks and benefits of the | | | procedure to the patient, verbal and written consent were obtained. | | | A timeout was taken. With the patient in the upright position, | | | ultrasound was utilized to identify a suitable site for | | | thoracentesis. The skin entrance site was marked. The overlying | | | skin was prepped and draped in sterile fashion, and 8 cc of 1% | | | lidocaine or Xylocaine without epinephrine addition was utilized for | | | local anesthesia. A small skin tana was made to accommodate the 8 | | | Arabic thoracentesis trocar and catheter, which were advanced into | | | the pleural space under aspiration. Prompt return of cloudy brown | | | pleural fluid confirmed appropriate positioning of the needle tip. | | | The catheter was advanced off of the trocar and the trocar was | | | removed. 1000 mL fluid were subsequently aspirated manually with | | | some difficulty. The procedure was terminated due to inability to | | | remove more fluid. There is complex fluid remaining in the chest | | | after the procedure. The catheter was removed. Hemostasis assured | | | with manual compression. The patient tolerated the procedure well. | | | There were no immediate complications. The fluid was provided to | | | the lab. | | + + + + + | Procedure Note | + + | Julian, Rad Results In - 10/30/2019 4:53 PM PST Exam: US GUIDED THORACENTESIS WO CHEST | | TUBE dated 10/30/2019 12:20 PM CLINICAL HISTORY: Effusion COMPARISON: Chest x-ray | | 10/30/2019. Chest x-ray 09/20/2019. Ultrasound 09/18/2019. PROCEDURE: After explaining the | | potential risks and benefits of the procedureto the patient, verbal and written consent | | were obtained. A timeout was taken. With the patient in the upright position, | | ultrasound was utilized to identify asuitable site for thoracentesis. The skin entrance | | site was marked. Theoverlying skin was prepped and draped in sterile fashion, and 8 cc | | of 1%lidocaine or Xylocaine without epinephrine addition was utilized for | | localanesthesia. A small skin tana was made to accommodate the 8 Frenchthoracentesis | | trocar and catheter, which were advanced into the pleural spaceunder aspiration. Prompt | | return of cloudy brown pleural fluid confirmedappropriate positioning of the needle | | tip. The catheter was advanced off of thetrocar and the trocar was removed. 1000 mL | | fluid were subsequently aspiratedmanually with some difficulty. The procedure was | | terminated due to inability toremove more fluid. There is complex fluid remaining in | | the chest after theprocedure. The catheter was removed. Hemostasis assured with | | manualcompression. The patient tolerated the procedure well. There were no | | immediatecomplications. The fluid was provided to the lab.IMPRESSION: 1. | | ULTRASOUND-GUIDED LEFT CHEST THORACENTESIS PRODUCING 1000 CC OF FLUID ASDESCRIBED. | | Dictated and Signed by: Rolan Orellana MD Electronically signed: 10/30/2019 4:50 PM | |procedure. The catheter was removed. Hemostasis assured with manual | |compression. The patient tolerated the procedure well. There were no immediate | |complications. The fluid was provided to the lab. | | | |IMPRESSION: | | | |1. ULTRASOUND-GUIDED LEFT CHEST THORACENTESIS PRODUCING 1000 CC OF FLUID | |DESCRIBED. | | | |Dictated and Signed by: Rolan Orellana MD | | Electronically signed: 10/30/2019 4:50 PM | + + + +---------+ + + | Performing | Address | City/State/[facility] | Phone Number | | Organization | | | | + +---------+ + + | [facility] | | | | + +---------+ + + Protime INR (10/30/2019 1:40 PM PST) + + + + + + | Component | Value | Ref Range | Performed | Pathologist | | | | | At | Signature | + + + + + + | Prothrombin | 16.5 (H) | 11.3 - 13.9 | [facility] | | | Time | | seconds | [facility] | | | | | | MEDICAL | | | | | | CENTER - | | | | | | LABORATORY | | + + + + + + | INR | 1.3 (H)Comment: Usual | 0.9 - 1.1 | [facility] | | | | Oral Anticoagulation | | [facility] | | | | Range: 2.0 - | | MEDICAL | | | | 3.0High Level Oral | | CENTER - | [...] [facility] | [address] | [place], [place] | [phone] | | [facility] | | [address] | | | - LABORATORY | | | | + + + + + Influenza A and B RNA, NAAT (10/30/2019 1:02 PM PST) + + + + + + | Component | Value | Ref Range | Performed | Pathologist | | | | | At | Signature | + + + + + + | Influenza A | Positive (A) | Negative, Test | [facility] | | | PCR | | not performed | [facility] | | | | | | MEDICAL | | | | | | CENTER - | | | | | | LABORATORY | | + + + + + + | Influenza B | Negative | Negative, Test | [facility] | | | PCR | | not performed | [facility] | | | | | | MEDICAL | | | | | | CENTER - | | | | | | LABORATORY | | + + + + + + + + | Specimen | + + | Tissue - Entire | | nasopharynx (body | | structure) | + + + + + + + | Performing | Address | City/State/Zipcode | Phone Number | | Organization | | | | + + + + + | [facility] | [address] | [place] | [phone] | | [facility] | | [address] | | | - LABORATORY | | | | + + + + + Lactate Dehydrogenase (10/30/2019 12:59 PM PST) + + + + + + | Component | Value | Ref Range | Performed | Pathologist | | | | | At | Signature | + + + + + + | LDH TOTAL | 209Comment: New method | 120 - 246 U/L | [facility] | | | | in use as of October | | [facility] | | | | 2018. Check | | MEDICAL | | | | reference range for | | CENTER - | | | | changes.Some analytes | | LABORATORY | | | | show significant | | | | | | variation from the | | | | | | previous method.It may | | | | | | be necessary to set a | | | | | | new baseline for this | | | | | | analyte. | | | | + + + + + + + + | Specimen | + + | Blood | + + + + + + + | Performing | Address | City/State/Zipcode | Phone Number | | Organization | | | | + + + + + | [facility] | [address] | [place] | [phone] | | [facility] | | [address] | | | - LABORATORY | | | | + + + + + B Type Natriuretic Peptide (10/30/2019 12:59 PM PST) + + + + + + | Component | Value | Ref Range | Performed | Pathologist | | | | | At | Signature | + + + + + + | BNP | >5000 (H)Comment: New | <100 pg/mL | [facility] | | | | method in use as of | | [facility] | | | | November 09, 2018. Check | | MEDICAL | | | | reference range for | | CENTER - | | | | changes.Some analytes | | LABORATORY | | | | show significant | | | | | | variation from the | | | | | | previous method.It may | | | | | | be necessary to set a | | | | | | new baseline for this | | | | | | analyte. | | | | + + + + + + + + | Specimen | + + | Blood | + + + + + + + | Performing | Address | City/State/Zipcode | Phone Number | | Organization | | | | + + + + + | [facility] | [address] | [place] | [phone] | | [facility] | | [address] | | | - LABORATORY | | | | + + + + + Troponin I (10/30/2019 12:59 PM PST) + + + + + + | Component | Value | Ref Range | Performed | Pathologist | | | | | At | Signature | + + + + + + | Troponin I | 0.32 (H)Comment: | <0.06 ng/mL | [facility] | | | | Comment:Reference | | [facility] | | | | Ranges: 0.00-0.06 = | | MEDICAL | | | | NORMAL >0.06 = | | CENTER - | | | | SUSPICIOUS FOR | | LABORATORY | | | | MYOCARDIAL DAMAGE NOTE: | | | | | | Values greater than | | | | | | 0.78 ng/mL have been | | | | | | shown to be strongly | | | | | | associated with acute | | | | | | myocardial infarction. | | | | | | [employer] | | | | | [...] + | [facility] | [address] | [place] | [phone] | | [facility] | | [address] | | | - LABORATORY | | | | + + + + + Comprehensive Metabolic Panel (10/30/2019 12:59 PM PST) + + + + + + | Component | Value | Ref Range | Performed | Pathologist | | | | | At | Signature | + + + + + + | Na | 128 (L) | 136 - 145 | [facility] | | | | | mmol/L | [facility] | | | | | | [facility] | | | | | | CENTER - | | | | | | LABORATORY | | + + + + + + | K | 4.8 | 3.4 - 5.1 | [facility] | | | | | mmol/L | [facility] | | | | | | [facility] | | | | | | CENTER - | | | | | | LABORATORY | | + + + + + + | Cl | 91 (L) | 98 - 107 mmol/L | [facility] [...] + + + | Anion Gap | 11 | 3 - 16 mmol/L | [facility] | | | | | | [facility] | | [facility] | [facility] | [facility]ICAL | | | | | | CENTER - | | | | | | LABORATORY | | + + + + + + | Glucose | 193 (H) | 60 - 106 mg/dL | [facility] | | | | | [facility] | | | | [facility] | [facility] | | | | | | CENTER - | | | | | | LABORATORY | | + + + + + + | BUN | 43 (H) | 9 - 23 mg/dL | [facility] | [facility] | | [facility] | | | | | | [facility] | | | | | | CENTER - | | | | | | LABORATORY | | + + + + + + | Creatinine | 5.23 (H) | 0.55 - 1.02 | [facility] | | | | | mg/dL | [facility] | | | | | | MEDICAL | | | | | | CENTER - | | | | | | LABORATORY | | + + + + + + | eGFR if not | 8 (L)Comment: GLOMERULAR | >=60 | [facility] | | | | FILTRATION | mL/min/1.73m2 | [facility] | | | CYMRAES | RATE,ESTIMATED | | MEDICAL | | | | mL/min/1.13l8Ckdq than | | CENTER - | | [...] + + | Calcium | 8.8 | 8.7 - 10.4 | [facility] | | | | | mg/dL | [facility] | | | [facility] | | [facility] | | | | | | CENTER - | | | | | | LABORATORY | | + + + + + + | Albumin | 3.5 | 3.2 - 4.8 g/dL | [facility] | | | | | | [facility] | | | | | | MEDICAL | | | | | | CENTER - | | | | | | LABORATORY | | + + + + + + | Bilirubin | 1.2 | 0.3 - 1.2 mg/dL | [facility] | | | Total | | | [facility] | | | | | | MEDICAL | | | | | | CENTER - | | | | | | LABORATORY | | + + + + + + | Total | 7.4 | 5.7 - 8.2 g/dL | [facility] [...] + + + + | ALT | 16 | 10 - 49 U/L | [facility] | | | | | | [facility] | | | | | | [facility]ICAL | | | | | | CENTER - | | | | | | LABORATORY | | + + + + + + | Alkaline | 113 | 46 - 116 U/L | [facility] | | | Phosphatase | | | [facility] | | | | | | MEDICAL | | | | | | CENTER - | | | | | | LABORATORY | | + + + + + + | Globulin | 3.9 (H) | 2.1 - 3.8 g/dL | [facility] | | | | | | [facility] | | | | | | [facility]ICAL | | | | | | CENTER - | | | | | | LABORATORY | | + + + + + + | Albumin/Shereen | 0.9 | 0.8 - 1.9 | [facility] | [...] + | [facility] | [address] | [place] | [phone] | | [facility] | | [address] | | | - LABORATORY | | | | + + + + + CBC w/ Auto Differential (10/30/2019 12:59 PM PST) + + + + + + | Component | Value | Ref Range | Performed | Pathologist | | | | | At | Signature | + + + + + + | White Blood | 8.6 | 4.0 - 11.0 K/uL | [facility] | | | Cells | | | [facility] | | | | | | MEDICAL | | | | | | CENTER - | | | | | | LABORATORY | | + + + + + + | Red Blood | 4.05 | 3.70 - 5.20 | [facility] | | | Cells | | M/uL | [facility] | | | | | | MEDICAL | | | | | | CENTER - | | | | | | LABORATORY | | + + + + + + | Hemoglobin | 11.5 | 11.5 - 16.0 | [facility] | | | | | g/dL | [facility] | | | | | | MEDICAL | | | | | | CENTER - | | | | | | LABORATORY | | + + + + + + | Hematocrit | 37.3 | 34.0 - 47.0 % | [facility] | | | | | | [facility] | | | | | | MEDICAL | | | | | | CENTER - | | | | | | LABORATORY | | + + + + + + | MCV | 92.1 | 83.0 - 101.0 fL | [facility] | | | | | | [facility] | | | | | | MEDICAL | | | | | | CENTER - | | | | | | LABORATORY | | + + + + + + | MCH | 28.4 | 28.0 - 35.0 pg | [facility] | | | | | [facility] | | | | | | MEDICAL | | | | | | CENTER - | | | | | | LABORATORY | | + + + + + + | MCHC | 30.8 (L) | 32.0 - 36.0 | [facility] [...] + + + + | RDW-SD | 55.5 (H) | 35.1 - 46.3 fL | [facility] | | | | | [facility] | | | | | | MEDICAL | | | | | | CENTER - | | | | | | LABORATORY | | + + + + + + | Platelet | 307 | 140 - 440 K/uL | [facility] | | | Count | | | [facility] | | | [facility] | | MEDICAL | | | | | | CENTER - | | | | | | LABORATORY | | + + + + + + | MPV | 10.3 | 6.5 - 12.4 fL | [facility] | | | | | | [facility] | | | | | | [facility] | | | | | | CENTER - | | | | | | LABORATORY | | + + + + + + | % | 86.5 (H) | 45.0 - 82.0 % | [facility] | | | Neutrophils | | | [facility] | | | | | | [facility] | | | | | | CENTER - | | | | | | LABORATORY | | + + + + + + | % | 6.1 (L) | 20.0 - 45.0 % | [facility] | | | Lymphocytes | | | [facility] | | | | | | MEDICAL | | | | | | CENTER - | | | | | | LABORATORY | | + + + + + + | % Monocytes | 6.4 | 4.0 - 12.0 % | [facility] | | | | | | [facility] | | | | | | MEDICAL | | | | | | CENTER - | | | | | | LABORATORY | | + + + + + + | % | 0.1 | 0.0 - 5.0 % | [facility] [...] + + + | % Immature | 0.7 (H)Comment: | 0.0 - 0.4 % | [facility] | | | Granulocyte | Preliminary studies have | | [facility] | | | s | indicated the IG% | | MEDICAL | | | | and/or IG# show promise | | CENTER - | | | | as an early indicator | | LABORATORY | | | | for infection. | | | | + + + + + + | Absolute | 7.47 | 1.80 - 8.50 | [facility] | | | Neutrophils | | K/uL | [facility] | | | | | | MEDICAL | | | | | | CENTER - | | | | | | LABORATORY | | + + + + + + | Absolute | 0.53 (L) | 0.60 - 3.20 | [facility] | | | Lymphocytes | | K/uL | [facility] | | | | | | MEDICAL | | | | | | CENTER - | | | | | | LABORATORY | | + + + + + + | Absolute | 0.55 | 0.00 - 1.00 | [facility] | | | Monocytes | | K/uL | [facility] | | | | | | MEDICAL | | | | | | CENTER - | | | | | | LABORATORY | | + + + + + + | Absolute | 0.01 | 0.00 - 0.40 | [facility] | | | Eosinophils | | K/uL | [facility] | [...] + + + + | Absolute | 0.06 (H) | 0.00 - 0.03 | [facility] [...] | [facility] | | | | | WBCs | [facility] | | | | [...] | [facility] | [address] | [place], [place] | [phone] | | [facility] | | [address] | | | - LABORATORY | | | | + + + + + XR Chest AP Portable (10/30/2019 12:46 PM PST) + + | Specimen | + + | | + + + + + | Impressions | Performed At | + + + | Interval complete opacification of the left hemithorax, suspicious | [facility] | | for dramatically worsened large pleural effusion with adjacent | | | collapse of the lung. Right lung mild pulmonary vascular | | | congestion and/or component of pulmonary inflammation/infection. | | | Dictated and Signed by: Itz Madsen MD Electronically signed: | | | 10/30/2019 1:58 PM | | + + + + + + | Narrative | Performed At | + + + | XR CHEST AP PORTABLE 10/30/2019 12:46 PM HISTORY: SHORTNESS OF | [facility] | | BREATH CHEST PAIN. COMPARISON: 09/20/2019 Findings: Worsening | | | complete opacification of the left lung with collapse of the left | | | lower lobe and near complete collapse of the left upper lobe. | | | Prominence of the right perihilar interstitial/bronchovascular | | | markings. No acute osseous findings. Osseous remodeling of the right | | | acromioclavicular and glenohumeral joints. | | + + + + + | Procedure Note | + + | Julian, Rad Results In - 10/30/2019 2:01 PM PST XR CHEST AP PORTABLE 10/30/2019 12:46 PM | | | | HISTORY: SHORTNESS OF BREATH | | CHEST PAIN. | | | | COMPARISON: 09/20/2019 | | | | Findings: Worsening complete opacification of the left lung with collapse of the | | left lower lobe and near complete collapse of the left upper lobe. Prominence of | | the right perihilar interstitial/bronchovascular markings. No acute osseous | | findings. Osseous remodeling of the right acromioclavicular and glenohumeral | | joints. | | | | IMPRESSION: | | Interval complete opacification of the left hemithorax, suspicious for | | dramatically worsened large pleural effusion with adjacent collapse of the lung. | | | | Right lung mild pulmonary vascular congestion and/or component of pulmonary | | inflammation/infection. | | | | Dictated and Signed by: Itz Madsen MD | | Electronically signed: 10/30/2019 1:58 PM | + + + +---------+ + + | Performing | Address | City/State/Zipcode | Phone Number | | Organization | | | | + +---------+ + + | [facility] | | | | + +---------+ + + Medical Cytology (10/30/2019 12:00 AM PST) + + | Specimen | + + | Body Fluid - Pleural | | fluid specimen | | (specimen) | + + + + + | Narrative | Performed At | + + + | ORDERING PHYSICIAN: Olegario Peng MD PATIENT NAME: | [facility] | | ESTEFANI CAMPOS GENDER: F : 1945 | [facility] | | SPECIMEN(S): A PLEURAL FLUID, LEFT GROSS DESCRIPTION: | | | APPROXIMATELY 1000 ML OF CLOUDY, BROWN-YELLOW FLUID W/ SMALL | | | FRAGMENTS (FRESH) CLINICAL HISTORY: NO CLINICAL DATA PROVIDED | | | LABORATORY PREPARATIONS: 1 MONOLAYER, 9 CELL BLOCKS CYTOLOGIC | | | INTERPRETATION: Pleural effusion: Negative for malignant cells. | | | Acute inflammation. DESCRIPTION: In addition to mesothelial cells | | | and fibrin, the preparations contain polymorphonuclear leukocytes. | | | Pleural acute inflammation can be caused by pneumonia, pulmonary | | | infarct, pulmonary abscess, pleuritis, and secondary bacterial | | | infection of a transudate. Organisms are not identified. Features | | | of malignancy are absent. SPECIMEN ADEQUACY: Satisfactory for | | | Evaluation PERFORMING LABORATORY: Technical preparation was | | | performed by [facility] [id number] [facility] | | | [place] [address] and [facility] [address] | | | [place] [address]. Professional interpretation was performed | | | by [facility] - [facility] - [address] | | | [place] [address] (Peer Counselor: Alen Simpson, | | | .; IA#:[id number]).8 Diagnostician: Precious RIGGS | | | ([facility]) Child Health Associate Diagnostician: Alen Simpson MD | | | Pathologist Electronically Signed 11/01/2019 | | + + + + +---------+ + + | Performing | Address | City/State/Zipcode | Phone Number | | Organization | | | | + +---------+ + + | [facility] | | | | | [facility] | | | | + +---------+ + + documented in this encounter Visit Diagnoses + + | Diagnosis | + + | Pleural effusion - Primary Unspecified pleural effusion | + + | Congestive heart failure, unspecified HF chronicity, unspecified heart failure type | | (HCC) | + + | Elevated troponin Other abnormal blood chemistry | + + | Pleural effusion, left Unspecified pleural effusion | + + | Influenza A Influenza with other respiratory manifestations | + + | HTN (hypertension) Unspecified essential hypertension | + + | Diabetes mellitus type II, non insulin dependent - DIET Control Type II or | | unspecified type diabetes mellitus without mention of complication, not stated as | | uncontrolled | + + | Hypothyroidism Unspecified hypothyroidism | + + | ESRD (end stage renal disease) on dialysis (HCC) End stage renal disease | + + | Marijuana use Cannabis abuse, unspecified | + + | GERD (gastroesophageal reflux disease) Esophageal reflux | + + | RBBB (right bundle branch block) Right bundle branch block | + + | Pulmonary hypertension, mild (HCC) Other chronic pulmonary heart diseases | + + | Depression Depressive disorder, not elsewhere classified | + + documented in this encounter Administered Medications + +--------+ +-------+------+------+ | Medication Order | MAR | Action | Dose | Rate | Site | | | Action | Date | | | | + +--------+ +-------+------+------+ | albuterol 5 mg/mL concentrated | Given | 10/30/19 | 10 mg | | | | nebulizer solution 10 mg 10 mg, | | 20 12:39 | | | | | Nebulization, RT Once, Mon | | PM PST | | | | | 10/30/19 at 1230, For 1 dose, RT | | | | | | | will administer., | | | | | | + +--------+ +-------+------+------+ +---+---+ | | | +---+---+ + +-------+ +-------+---+---+ | albuterol-ipratropium 2.5-0.5 | Given | 10/30/19 | 3 mLs | | | | mg/3 mL nebulizer solution 3 mL | | 20 12:39 | | | | | 3 mL, Nebulization, RT Once, Mon | | PM PST | | | | | 10/30/19 at 1230, For 1 dose | | | | | | + +-------+ +-------+---+---+ +---+---+ | | | +---+---+ + +---------+ +-----+-------+---+ | cefepime (MAXIPIME) 1 g in | New Bag | 10/30/19 | 1 g | 100 | | | sodium chloride 0.9% 50 mL IVPB | | 20 6:20 | | mL/hr | | | 1 g, Intravenous, Administer over | | PM PST | | | | | 30 Minutes, ONCE, 10/30/19 at | | | | | | | 1740, For 1 dose, Activate | | | | | | | system and mix before use., | | | | | | | Indications: Respiratory Tract | | | | | | | Infection | | | | | | + +---------+ +-----+-------+---+ +---+---+ | | | +---+---+ + +-------+ +--------+---+---+ | fentaNYL (PF) injection 50 mcg | Given | 10/30/19 | 50 mcg | | | | 50 mcg, Intravenous, EVERY 1 | | 20 7:22 | | | | | HOUR PRN, Severe Pain, Starting | | PM PST | | | | | 10/30/19 at 1916 | | | | | | + +-------+ +--------+---+---+ +---+---+ | | | +---+---+ + +-------+ +--------+---+---+ | HYDROmorphone (DILAUDID) | Given | 10/30/19 | 0.5 mg | | | | injection 0.5 mg 0.5 mg, | | 20 8:42 | | | | | Intravenous, ONCE, 10/30/19 at | | PM PST | | | | | 2020, For 1 dose | | | | | | + +-------+ +--------+---+---+ +---+---+ | | | +---+---+ + +-------+ +--------+---+---+ | HYDROmorphone (DILAUDID) | Given | 10/30/19 | 0.5 mg | | | | injection 0.5 mg 0.5 mg, | | 20 10:54 | | | | | Intravenous, ONCE, 10/30/19 at | | PM PST | | | | | 2225, For 1 dose | | | | | | + +-------+ +--------+---+---+ +---+---+ | | | +---+---+ + +-------+ +-------+---+---+ | methylPREDNISolone sodium | Given | 10/30/19 | 60 mg | | | | succinate (solu-MEDROL) 62.5 | | 20 1:09 | | | | | mg/mL injection 60 mg 60 mg, | | PM PST | | | | | Intravenous, ONCE, 10/30/19 at | | | | | | | 1230, For 1 dose, Mix with 2 mL | | | | | | | provided diluent to make 62.5 | | | | | | | mg/mL., | | | | | | + +-------+ +-------+---+---+ +---+---+ | | | +---+---+ + +---------+ + +--------+---+ | vancomycin 1,500 mg in sodium | New Bag | 10/30/19 | 1,500 mg | 176.7 | | | chloride 0.9% 250 mL IVPB 1,500 | | 20 7:05 | | mL/hr | | | mg, Intravenous, Administer over | | PM PST | | | | | 90 Minutes, ONCE, 10/30/19 at | | | | | | | 1750, For 1 dose, Keep in | | | | | | | refrigerator., Indications: | | | | | | | Respiratory Tract Infection | | | | | | + +---------+ + +--------+---+ + +---+ | | | + +---+ | vancomycin per pharmacy | | | PHARMACY CONSULT, Starting Mon | | | 10/30/19 at 1734, Indications: | | | Respiratory Tract Infection | | + +---+ | | | + +---+ documented in this encounter Additional Health Concerns + + + + + | Infection | Onset Date | Last Indicated | Resolved Time | + + + + + | Rule out Respiratory | 10/30/2019 | 10/30/2019 | 10/30/2019 1:37 PM | | Infection | | | PST | + + + + + | Influenza - flu | 10/30/2019 | 10/30/2019 | 11/13/2019 3:54 AM | | | | | PST | + + + + + documented as of this encounter
--- OUTSIDE RECORDS SUMMARY | ~2020-03-23 | XMS | Encounter Summary ---
Demographics + + + | Address | [address] | | | [place] [address] | + + + | Home Phone [...] | Author | [facility] | | | and [place]it[place] | + + + | Organization | [facility] | | | and [place] | + + + | Address | Unknown | + + + | Phone | Unavailable | + + + Support + + + + + | Name | Relationship | Address | Phone | + + + + + | India Tilley | ECON | [address] | | | | | [place], [place] | | | | | [address] | | + + + + + [...] Team Providers + +------+ + | Care Quality Assurance Supervisor Chassis Name | Role | Phone | + +------+ + PCP | Unavailable | + +------+ + Encounter Details +--------+ + + + + | Date | Type | Department | Care Team | Description | +--------+ + + + + | 05/26/ | Abstract | [facility] | Darlin Moseley W, | | | 2017 | | NEPHROLOGY [address] | [address] | | | | | [address] | [address] [place] | | | | | [place] | [place] [address] | | | | | [address] | [phone] | | | | | [phone] | | | +--------+ + + + [...] +--------+ + + + | EXTERNAL LAB: ELIZABETH | Routin | 05/06/2017 | | Results for this | | | e | | | procedure are in the | | | | | | results section. | + +--------+ + + + | EXTERNAL LAB: Felipe Payne | 05/06/2017 | | Results for this | | GLUCOSE | e | | | procedure are in the | | | | | | results section. | + +--------+ + + + | EXTERNAL LAB: ALT | Routin | 05/06/2017 | | Results for this | | | e | | | procedure are in the | | | | | | results section. | + +--------+ + + + | EXTERNAL LAB: AST | Routin | 05/06/2017 | | Results for this | | | e | | | procedure are in the | | | | | | results section. | + +--------+ + + + | EXTERNAL LAB: | Routin | 05/06/2017 | | Results for this | | ALBUMIN | e | | | procedure are in the | | | | | | results section. | + +--------+ + + + | EXTERNAL LAB: | Routin | 05/06/2017 | | Results for this | | PROTEIN, TOTAL | e | | | procedure are in the | | | | | | results section. | + +--------+ + + + | EXTERNAL LAB: | Routin | 05/06/2017 | | Results for this | | CALCIUM | e | | | procedure are in the | | | | | | results section. | + +--------+ + + + | EXTERNAL LAB: CARBON | Routin | 05/06/2017 | | Results for this | | DIOXIDE | e | | | procedure are in the | | | | | | results section. | + +--------+ + + + | EXTERNAL LAB: | Routin | 05/06/2017 | | Results for this | | CHLORIDE | e | | | procedure are in the | | | | | | results section. | + +--------+ + + + | EXTERNAL LAB: | Routin | 05/06/2017 | | Results for this | | POTASSIUM | e | | | procedure are in the | | | | | | results section. | + +--------+ + + + | EXTERNAL LAB: SODIUM | Routin | 05/06/2017 | | Results for this | | | e | | | procedure are in the | | | | | | results section. | + +--------+ + + + | EXTERNAL LAB: | Routin | 05/06/2017 | | Results for this | | URINALYSIS | e | | | procedure are in the | | | | | | results section. | + +--------+ + + + | EXTERNAL LAB: | Routin | 05/06/2017 | | Results for this | | TRIGLYCERIDES | e | | | procedure are in the | | | | | | results section. | + +--------+ + + + | EXTERNAL LAB: | Routin | 05/06/2017 | | Results for this | | CHOLESTEROL, HDL | e | | | procedure are in the | | | | | | results section. | + +--------+ + + + | EXTERNAL LAB: | Routin | 05/06/2017 | | Results for this | | CHOLESTEROL, TOTAL | e | | | procedure are in the | | | | | | results section. | + +--------+ + + + | EXTERNAL LAB: | Routin | 05/06/2017 | | Results for this | | CHOLESTEROL, LDL | e | | | procedure are in the | | | | | | results section. | + +--------+ + + + | EXTERNAL LAB: | Routin | 05/06/2017 | | Results for this | | MICROALBUMIN/CREATIN | e | | | procedure are in the | | INE RATIO, URINE | | | | results section. | + +--------+ + + + | EXTERNAL LAB: EGFR | Routin | 05/06/2017 | | Results for this | | | e | | | procedure are in the | | | | | | results section. | + +--------+ + + + | EXTERNAL LAB: | Routin | 05/06/2017 | | Results for this | | CREATININE | e | | | procedure are in the | | | | | | results section. | + +--------+ + + + documented in this encounter Results External Lab: Glucose (05/06/2017) + +-------+ + + + | Component | Value | Ref Range | Performed | Pathologist | | | | | At | Signature | + +-------+ + + + | Glucose, | 210 | | EXTERNAL | | | External | | | LAB | | + +-------+ + + + + + | Resulting Agency Comment | + + | [facility] | + + + +---------+ + + | Performing | Address | City/State/Zipcode | Phone Number | | Organization | | | | + +---------+ + + | EXTERNAL LAB | | | | + +---------+ + + External Lab: ALT (05/06/2017) + +-------+ + + + | Component | Value | Ref Range | Performed | Pathologist | | | | | At | Signature | + +-------+ + + + | ALT, | 11 | | EXTERNAL | | | External | | | LAB | | + +-------+ + + + + + | Resulting Agency Comment | + + | [facility] | + + + +---------+ + + | Performing | Address | City/State/Zipcode | Phone Number | | Organization | | | | + +---------+ + + | EXTERNAL LAB | | | | + +---------+ + + External Lab: AST (05/06/2017) + +-------+ + + + | Component | Value | Ref Range | Performed | Pathologist | | | | | At | Signature | + +-------+ + + + | AST, | 5 | | EXTERNAL | | | External | | | LAB | | + +-------+ + + + + + | Resulting Agency Comment | + + | [facility] | + + + +---------+ + + | Performing | Address | City/State/Zipcode | Phone Number | | Organization | | | | + +---------+ + + | EXTERNAL LAB | | | | + +---------+ + + External Lab: Albumin (05/06/2017) + +-------+ + + + | Component | Value | Ref Range | Performed | Pathologist | | | | | At | Signature | + +-------+ + + + | Albumin, | 3.6 | | EXTERNAL | | | External | | | LAB | | + +-------+ + + + + + | Resulting Agency Comment | + + | [facility] | + + + +---------+ + + | Performing | Address | City/State/Zipcode | Phone Number | | Organization | | | | + +---------+ + + | EXTERNAL LAB | | | | + +---------+ + + External Lab: Protein, Total (05/06/2017) + +-------+ + + + | Component | Value | Ref Range | Performed | Pathologist | | | | | At | Signature | + +-------+ + + + | Protein, | 7.3 | | EXTERNAL | | | Total, | | | LAB | | | External | | | | | + +-------+ + + + + + | Resulting Agency Comment | + + | [facility] | + + + +---------+ + + | Performing | Address | City/State/Zipcode | Phone Number | | Organization | | | | + +---------+ + + | EXTERNAL LAB | | | | + +---------+ + + External Lab: Calcium (05/06/2017) + +-------+ + + + | Component | Value | Ref Range | Performed | Pathologist | | | | | At | Signature | + +-------+ + + + | Calcium, | 9.7 | | EXTERNAL | | | External | | | LAB | | + +-------+ + + + + + | Resulting Agency Comment | + + | [facility] | + + + +---------+ + + | Performing | Address | City/State/Zipcode | Phone Number | | Organization | | | | + +---------+ + + | EXTERNAL LAB | | | | + +---------+ + + External Lab: Urinalysis (05/06/2017) + + + + + + | Component | Value | Ref Range | Performed | Pathologist | | | | | At | Signature | + + + + + + | UA Blood, | 50 | | EXTERNAL | | | External | | | LAB | | + + + + + + | UA Glucose, | negative | | EXTERNAL | | | External | | | LAB | | + + + + + + | UA Ketones, | negative | | EXTERNAL | | | External | | | LAB | | + + + + + + | UA Ph, | 6.5 | | EXTERNAL | | | External | | | LAB | | + + + + + + | UA | 500 | | EXTERNAL | | | Proteins, | | | LAB | | | External | | | | | + + + + + + | UA RBC, | 3 | | EXTERNAL | | | External | | | LAB | | + + + + + + | UA Specific | 1.012 | | EXTERNAL | | | Sultan, | | | LAB | | | External | | | | | + + + + + + | UA | 2 | | EXTERNAL | | | Leukocyte | | | LAB | | | Esterase, | | | | | | External | | | | | + + + + + + + + | Resulting Agency Comment | + + | [facility] | + + + +---------+ + + | Performing | Address | City/State/Zipcode | Phone Number | | Organization | | | | + +---------+ + + | EXTERNAL LAB | | | | + +---------+ + + External Lab: Triglycerides (05/06/2017) + +-------+ + + + | Component | Value | Ref Range | Performed | Pathologist | | | | | At | Signature | + +-------+ + + + | Triglycerid | 234 | | EXTERNAL | | | es, | | | LAB | | | External | | | | | + +-------+ + + + + + | Specimen | + + | Blood | + + + + | Resulting Agency Comment | + + | [facility] | + + + +---------+ + + | Performing | Address | City/State/Zipcode | Phone Number | | Organization | | | | + +---------+ + + | EXTERNAL LAB | | | | + +---------+ + + External Lab: Cholesterol, HDL (05/06/2017) + +-------+ + + + | Component | Value | Ref Range | Performed | Pathologist | | | | | At | Signature | + +-------+ + + + | HDL | 37 | mg/dl | EXTERNAL | | | Cholesterol | | | LAB | | | , External | | | | | + +-------+ + + + + + | Specimen | + + | Blood | + + + + | Resulting Agency Comment | + + | [facility] | + + + +---------+ + + | Performing | Address | City/State/Zipcode | Phone Number | | Organization | | | | + +---------+ + + | EXTERNAL LAB | | | | + +---------+ + + External Lab: Cholesterol, Total (05/06/2017) + +-------+ + + + | Component | Value | Ref Range | Performed | Pathologist | | | | | At | Signature | + +-------+ + + + | Cholesterol | 230 | mg/dl | EXTERNAL | | | , Total, | | | LAB | | | External | | | | | + +-------+ + + + + + | Specimen | + + | Blood | + + + + | Resulting Agency Comment | + + | [facility] | + + + +---------+ + + | Performing | Address | City/State/Zipcode | Phone Number | | Organization | | | | + +---------+ + + | EXTERNAL LAB | | | | + +---------+ + + External Lab: Cholesterol, LDL (05/06/2017) + +-------+ + + + | Component | Value | Ref Range | Performed | Pathologist | | | | | At | Signature | + +-------+ + + + | LDL | 146 | | EXTERNAL | | | Cholesterol | | | LAB | | | , Direct, | | | | | | External | | | | | + +-------+ + + + + + | Specimen | + + | Blood | + + + + | Resulting Agency Comment | + + | [facility] | + + + +---------+ + + | Performing | Address | City/State/Zipcode | Phone Number | | Organization | | | | + +---------+ + + | EXTERNAL LAB | | | | + +---------+ + + External Lab: ELIZABETH (05/06/2017) + +-------+ + + + | Component | Value | Ref Range | Performed | Pathologist | | | | | At | Signature | + +-------+ + + + | BUN, | 31 | | EXTERNAL | | | External | | | LAB | | + +-------+ + + + + + | Resulting Agency Comment | + + | [facility] | + + + +---------+ + + | Performing | Address | City/State/Zipcode | Phone Number | | Organization | | | | + +---------+ + + | EXTERNAL LAB | | | | + +---------+ + + External Lab: Carbon Dioxide (05/06/2017) + +-------+ + + + | Component | Value | Ref Range | Performed | Pathologist | | | | | At | Signature | + +-------+ + + + | Carbon | 21 | | EXTERNAL | | | Dioxide, | | | LAB | | | External | | | | | + +-------+ + + + + + | Resulting Agency Comment | + + | [facility] | + + + +---------+ + + | Performing | Address | City/State/Zipcode | Phone Number | | Organization | | | | + +---------+ + + | EXTERNAL LAB | | | | + +---------+ + + External Lab: Chloride (05/06/2017) + +-------+ + + + | Component | Value | Ref Range | Performed | Pathologist | | | | | At | Signature | + +-------+ + + + | Chloride, | 105 | | EXTERNAL | | | External | | | LAB | | + +-------+ + + + + + | Resulting Agency Comment | + + | [facility] | + + + +---------+ + + | Performing | Address | City/State/Zipcode | Phone Number | | Organization | | | | + +---------+ + + | EXTERNAL LAB | | | | + +---------+ + + External Lab: Potassium (05/06/2017) + +-------+ + + + | Component | Value | Ref Range | Performed | Pathologist | | | | | At | Signature | + +-------+ + + + | Potassium, | 4.9 | | EXTERNAL | | | External | | | LAB | | + +-------+ + + + + + | Resulting Agency Comment | + + | [facility] | + + + +---------+ + + | Performing | Address | City/State/Zipcode | Phone Number | | Organization | | | | + +---------+ + + | EXTERNAL LAB | | | | + +---------+ + + External Lab: Sodium (05/06/2017) + +-------+ + + + | Component | Value | Ref Range | Performed | Pathologist | | | | | At | Signature | + +-------+ + + + | Sodium, | 138 | | EXTERNAL | | | External | | | LAB | | + +-------+ + + + + + | Resulting Agency Comment | + + | [facility] | + + + +---------+ + + | Performing | Address | City/State/Zipcode | Phone Number | | Organization | | | | + +---------+ + + | EXTERNAL LAB | | | | + +---------+ + + External Lab: Microalbumin/Creatinine Ratio, Urine (05/06/2017) + +-------+ + + + | Component | Value | Ref Range | Performed | Pathologist | | | | | At | Signature | + +-------+ + + + | Microalbumi | 1,104 | | EXTERNAL | | | n/Creatinin | | | LAB | | | e Ratio, | | | | | | External | | | | | + +-------+ + + + + + | Specimen | + + | Blood | + + + + | Resulting Agency Comment | + + | [facility] | + + + +---------+ + + | Performing | Address | City/State/Zipcode | Phone Number | | Organization | | | | + +---------+ + + | EXTERNAL LAB | | | | + +---------+ + + External Lab: eGFR (05/06/2017) + +-------+ + + + | Component | Value | Ref Range | Performed | Pathologist | | | | | At | Signature | + +-------+ + + + | eGFR, | 23 | | EXTERNAL | | | External | | | LAB | | + +-------+ + + + + + | Specimen | + + | Blood | + + + + | Resulting Agency Comment | + + | [facility] | + + + +---------+ + + | Performing | Address | City/State/Zipcode | Phone Number | | Organization | | | | + +---------+ + + | EXTERNAL LAB | | | | + +---------+ + + External Lab: Creatinine (05/06/2017) + +-------+ + + + | Component | Value | Ref Range | Performed | Pathologist | | | | | At | Signature | + +-------+ + + + | Creatinine, | 2.13 | | EXTERNAL | | | External | | | LAB | | + +-------+ + + + + + | Specimen | + + | Blood | + + + + | Resulting Agency Comment | + + | [facility] | + + + +---------+ + + | Performing | Address | City/State/Zipcode | Phone Number | | Organization | | | | + +---------+ + + | EXTERNAL LAB | | | | + +---------+ + + documented in this encounter Visit Diagnoses Not on filedocumented in this encounter"
--- OUTSIDE RECORDS SUMMARY | ~2020-03-23 | XMS | Encounter Summary ---
Demographics + + + | Address | [address] | | | [place] [address] | + + + | Home Phone | | + + + | Preferred Language | Unknown | + + + | Marital Status | Single | + + + | Episcopal Affiliation | Unknown | + + + | Race | Unknown | + + + | Ethnic Group | Unknown | + + + Author + + + | Author | [facility] | | | and [place]it[place] | + + + | Organization | [facility] | | | and [place] | + + + | Address | Unknown | + + + | Phone | Unavailable | + + + Support + + + + + | Name | Relationship | Address | Phone | + + + + + | India Tilley | ECON | [address] | | | | | [place], [place] | | | | | [address] | | + + + + + [...] Team Providers + +------+ + | Care Power And Recovery Shift Engineer Name | Role | Phone | [...] | Nephrology | Diagnoses | Vu, | Dakotahemel, | | | | | End stage | Francisca Arellano, | Gopi Rmoan DO | | | | | renal | PA-C [address] | [address] | | | | | disease | [address] | [address] | | | | | (HCC) | [place] | [address] | | | | | Procedures | [address] | [place], | | | | | [place] | [facility]NOTE 3], | [place] [address] | | | | | RELATED [place]VC | [place] | Phone: | | | | | MONTHLY | [address] | [phone] | | | | | 20&/> YR OLD | Phone: | Fax: | | | | | 4/> VISITS | [phone] | [phone] | | | | | | Fax: | | | | | | | [phone] | | +--------+--------+ + + + + Encounter Details +--------+ + + + + | Date | Type | Department | Care Team | Description | +--------+ + + + + | 03/06/ | Off-Site | [facility] | Gopi Muñoz | End stage renal | | 2019 | Visit | NEPHROLOGY [address] | M, DO [address] | disease (HCC) | | | | [address] | [address] [place] | (Primary Dx) | | | | [place] | [place] [address] | | | | | [address] | [phone] | | | | | [phone] | | | +--------+ + + + [...]
--- OUTSIDE RECORDS SUMMARY | ~2020-03-23 | XMS | Encounter Summary ---
Demographics + + + | Address | [address] | | | [place] [address] | + + + | Home Phone [...] | Author | [facility] | | | and [place]it[place] | + + + | Organization | [facility] | | | and [place] | + + + | Address | Unknown | + + + | Phone | Unavailable | + + + Support + + + + + | Name | Relationship | Address | Phone | + + + + + | India Tilley | ECON | [address] | | | | | [place], [place] | | | | | [address] | | + + + + + [...] Team Providers + +------+ + | Care Inspector Subassembly Name | Role | Phone | + [...] End stage | Francisca Arellano, | Gopi Roman DO | | | | | renal | PA-C [address] | [address] | | | | | disease | [address] | [address] | | | | | ([facility]) | [address] | [address] | | | | | Procedures | [address] | [place], | | | | | [place] ESRD | [place], | [place] [address] | | | | | RELATED SVC | [place] | Phone: | | | | | MONTHLY | [address] | [phone] | | | | | 20&/> YR OLD | Phone: | Fax: | | | | | 4/> VISITS | [phone] | [phone] | | | | | | Fax: | | | | | | | [phone] | | +--------+--------+ + + + + Encounter Details +--------+ + + + + | Date | Type | Department | Care Team | Description | +--------+ + + + + | 05/08/ | Off-Site | [facility] | Gopi Muñoz | Osteomyelitis, | | 2019 | Visit | NEPHROLOGY [address] | M, DO [address] | unspecified site, | | | | [address] | [address] [place] | unspecified type | | | | [place], [place] | [place] [address] | ([facility]) (Primary Dx); | | | | [address] | [phone] | ESRD (end stage | | | | [phone] | | renal disease) on | | | | | | dialysis (HCC) | +--------+ + + + + [...] encounter Progress Notes Gopi Muñoz DO - 05/08/2019 11:00 AM PDT[Patient not seen.schedule an office visit will at [facility], 2019.] documented in thi s encounter Plan of Treatment Not on filedocumented as of this encounter Visit Diagnoses + + | Diagnosis | + + | Osteomyelitis, unspecified site, unspecified type (HCC) - Primary | + + | ESRD (end stage renal disease) on dialysis (HCC) End stage renal disease | + + documented in this encounter"
--- OUTSIDE RECORDS SUMMARY | ~2020-03-23 | XMS | Encounter Summary ---
Demographics + + + | Address | [address] | | | [place] [address] | + + + | Home Phone [...] + | Author | [facility] | | | and [place]it[place] | + + + | Organization | [facility] | | | and [place] | + + + | Address | Unknown | + + + | Phone | Unavailable | + + + Support + + + + + | Name | Relationship | Address | Phone | + + + + + | India Tilley | ECON | [address] | | | | | [place], [place] | | | | | [address] | | + + + + + [...] Team Providers + +------+ + | Care Recreation Assistant Name | Role | Phone | + +------+ + PCP | Unavailable | + +------+ + Reason for Visit + +--------+ + | Reason | Onset | Comments | | | Date | | + +--------+ + | Insurance | 01/06/ | | | Authorization | 2019 | | + +--------+ + Encounter Details +--------+ + + + + | Date | Type | Department | Care Team | Description | +--------+ + + + + | 01/06/ | Telephone | [facility] | Scott Koroma, | Insurance | | 2018 | | ORTHOPEDIC SURGERY | MD [address] | Authorization | | | | [address] [place] | [place] | | | | | [place] | [address] | | | | | [address] | | | | | | [phone] | | | +--------+ + + + [...] this encounter Miscellaneous Notes Telephone Encounter - Soledad Marlow - 01/10/2019 1:58 PM ZHENG SPOKE WITH SIRIA AT [facility] AND SHE STATED THAT IT IS THE PATIENTS RESPONSIBILITY TO CONTACT [facility] FOR ANY APPOINTMENTS AND ER VISITS THAT SHE HAS OR HAD. SIRIA WILL CALL BACK TO CONFIRM THAT [facility] DID CONTACT THEM FOR AN AUTHORIZATION FROM [facility]. SIRIA PHONE# [phone] ically signed by Soledad Marlow at 01/10/2019 2:00 PM PDTTelephone Encounter - Rubio Marlow - 01/06/2019 10:48 AM PDTPatient came into office for her post op appt and ask if we g ot authorization from [facility]. I looked in her chart and don't see that we received [facility]. Here are her last [address] Koroma Last post op 01/05/19 Dr Koroma Dos 12/04/18 Percutaneous cannulated screw fixation right femoral neck fracture with Dr Avelino martin If [facility] calls back please find me or give them the above information. [facility]el can be reached at [phone] signed by Soledad Marlow at 019 10:56 AM PDTdocumented in this encounter Plan of Treatment Not on filedocumented as of this encounter Visit Diagnoses Not on filedocumented in this encounter"
--- OUTSIDE RECORDS SUMMARY | ~2020-03-23 | XMS | Encounter Summary ---
Demographics + + + | Address | [address] | | | [place] [address] | + + + | Home Phone | | + + + | Preferred Language | Unknown | + + + | Marital Status | Single | + + + | Religion Affiliation | Unknown | + + + | Race | Unknown | + + + | Ethnic Group | Unknown | + + + Author + + + | Author | [facility] | | | and [place] | + + + | Organization | [facility] | | | and [place] | + + + | Address | Unknown | + + + | Phone | Unavailable | + + + Support + + + + + | Name | Relationship | Address | Phone | + + + + + | [place] Tilley | ECON | [id number] | | | | | [place], [place] | | | | | [address] | | + + + + + [...] Providers + +------+ + | Care Wire Lather Name | Role | Phone | + +------+ + PCP | Unavailable | + +------+ + Encounter Details +--------+ + + + + | Date | Type | Department | Care Team | Description | +--------+ + + + + | 04/16/ | Abstract | [facility] | Darlin Moseley W, | | | 2017 | | NEPHROLOGY [address] | | | | | [address] | [address] | | | | | [place] | [place] [address] | | | | | [id number] | [phone] | | | | | [phone] | | | +--------+ + + + [...] | EXTERNAL LAB: [facility] | Routin | 10/15/2015 | | Results for this | | | e | | | procedure are in the | | | | | | results section. | + +--------+ + + + | EXTERNAL LAB: | Routin | 10/15/2015 | | Results for this | | GLUCOSE | e | | | procedure are in the | | | | | | results section. | + +--------+ + + + | EXTERNAL LAB: ALT | Routin | 10/15/2015 | | Results for this | | | e | | | procedure are in the | | | | | | results section. | + +--------+ + + + | EXTERNAL LAB: AST | Routin | 10/15/2015 | | Results for this | | | e | | | procedure are in the | | | | | | results section. | + +--------+ + + + | EXTERNAL LAB: | Routin | 10/15/2015 | | Results for this | | ALKALINE PHOSPHATASE | e | | | procedure are in the | | | | | | results section. | + +--------+ + + + | EXTERNAL LAB: | Routin | 10/15/2015 | | Results for this | | BILIRUBIN, TOTAL | e | | | procedure are in the | | | | | | results section. | + +--------+ + + + | EXTERNAL LAB: | Routin | 10/15/2015 | | Results for this | | ALBUMIN | e | | | procedure are in the | | | | | | results section. | + +--------+ + + + | EXTERNAL LAB: | Routin | 10/15/2015 | | Results for this | | PROTEIN, TOTAL | e | | | procedure are in the | | | | | | results section. | + +--------+ + + + | EXTERNAL LAB: | Routin | 10/15/2015 | | Results for this | | CALCIUM | e | | | procedure are in the | | | | | | results section. | + +--------+ + + + | EXTERNAL LAB: CARBON | Routin | 10/15/2015 | | Results for this | | DIOXIDE | e | | | procedure are in the | | | | | | results section. | + +--------+ + + + | EXTERNAL LAB: | Routin | 10/15/2015 | | Results for this | | CHLORIDE | e | | | procedure are in the | | | | | | results section. | + +--------+ + + + | EXTERNAL LAB: | Routin | 10/15/2015 | | Results for this | | POTASSIUM | e | | | procedure are in the | | | | | | results section. | + +--------+ + + + | EXTERNAL LAB: SODIUM | Routin | 10/15/2015 | | Results for this | | | e | | | procedure are in the | | | | | | results section. | + +--------+ + + + | EXTERNAL LAB: CBC | Routin | 10/15/2015 | | Results for this | | | e | | | procedure are in the | | | | | | results section. | + +--------+ + + + | EXTERNAL LAB: | Routin | 10/15/2015 | | Results for this | | TRIGLYCERIDES | e | | | procedure are in the | | | | | | results section. | + +--------+ + + + | EXTERNAL LAB: | Routin | 10/15/2015 | | Results for this | | CHOLESTEROL, HDL | e | | | procedure are in the | | | | | | results section. | + +--------+ + + + | EXTERNAL LAB: | Routin | 10/15/2015 | | Results for this | | CHOLESTEROL, TOTAL | e | | | procedure are in the | | | | | | results section. | + +--------+ + + + | EXTERNAL LAB: | Routin | 10/15/2015 | | Results for this | | CHOLESTEROL, LDL | e | | | procedure are in the | | | | | | results section. | + +--------+ + + + | EXTERNAL LAB: EGFR | Routin | 10/15/2015 | | Results for this | | | e | | | procedure are in the | | | | | | results section. | + +--------+ + + + | EXTERNAL LAB: | Routin | 10/15/2015 | | Results for this | | CREATININE | e | | | procedure are in the | | | | | | results section. | + +--------+ + + + | HEMOGLOBIN A1C | Routin | 10/15/2015 | | Results for this | | | e | | | procedure are in the | | | | | | results section. | + +--------+ + + + documented in this encounter Results External Lab: Urinalysis (03/09/2017) + + + + + + | Component | Value | Ref Range | Performed | Pathologist | | | | | At | Signature | + + + + + + | UA Blood, | negative | | EXTERNAL | | | External | | | LAB | | + + + + + + | UA Glucose, | 100 | | EXTERNAL | | | External | | | LAB | | + + + + + + | UA Ketones, | negative | | EXTERNAL | | | External | | | LAB | | + + + + + + | UA Ph, | 5 | | EXTERNAL | | | External | | | LAB | | + + + + + + | UA | 100 | | EXTERNAL | | | Proteins, | | | LAB | | | External | | | | | + + + + + + | UA RBC, | 1 | | EXTERNAL | | | External | | | LAB | | + + + + + + + + | Resulting Agency Comment | + + | [facility] | + + + +---------+ + + | Performing | Address | City/State/Zipcode | Phone Number | | Organization | | | | + +---------+ + + | EXTERNAL LAB | | | | + +---------+ + + Hemoglobin A1C (10/15/2015) + +-------+ + + + | Component | Value | Ref Range | Performed | Pathologist | | | | | At | Signature | + +-------+ + + + | Hemoglobin | 10.7 | | EXTERNAL | | | A1c, | | | LAB | | | external | | | | | + +-------+ + + + + + | Specimen | + + | Blood | + + + + | Resulting Agency Comment | + + | [facility] | + + + +---------+ + + | Performing | Address | City/State/Zipcode | Phone Number | | Organization | | | | + +---------+ + + | EXTERNAL LAB | | | | + +---------+ + + External Lab: ELIZABETH (10/15/2015) + +-------+ + + + | Component | Value | Ref Range | Performed | Pathologist | | | | | At | Signature | + +-------+ + + + | BUN, | 27 | | EXTERNAL | | | External | | | LAB | | + +-------+ + + + + + | Resulting Agency Comment | + + | [facility] | + + + +---------+ + + | Performing | Address | City/State/Zipcode | Phone Number | | Organization | | | | + +---------+ + + | EXTERNAL LAB | | | | + +---------+ + + External Lab: Glucose (10/15/2015) + +-------+ + + + | Component | Value | Ref Range | Performed | Pathologist | | | | | At | Signature | + +-------+ + + + | Glucose, | 405 | | EXTERNAL | | | External | | | LAB | | + +-------+ + + + + + | Resulting Agency Comment | + + | [facility] | + + + +---------+ + + | Performing | Address | City/State/Zipcode | Phone Number | | Organization | | | | + +---------+ + + | EXTERNAL LAB | | | | + +---------+ + + External Lab: ALT (10/15/2015) + +-------+ + + + | Component | Value | Ref Range | Performed | Pathologist | | | | | At | Signature | + +-------+ + + + | ALT, | 12 | | EXTERNAL | | | External | | | LAB | | + +-------+ + + + + + | Resulting Agency Comment | + + | [facility] | + + + +---------+ + + | Performing | Address | City/State/Zipcode | Phone Number | | Organization | | | | + +---------+ + + | EXTERNAL LAB | | | | + +---------+ + + External Lab: AST (10/15/2015) + +-------+ + + + | Component | Value | Ref Range | Performed | Pathologist | | | | | At | Signature | + +-------+ + + + | AST, | 13 | | EXTERNAL | | | External | | | LAB | | + +-------+ + + + + + | Resulting Agency Comment | + + | [facility] | + + + +---------+ + + | Performing | Address | City/State/Zipcode | Phone Number | | Organization | | | | + +---------+ + + | EXTERNAL LAB | | | | + +---------+ + + External Lab: Alkaline Phosphatase (10/15/2015) + +-------+ + + + | Component | Value | Ref Range | Performed | Pathologist | | | | | At | Signature | + +-------+ + + + | ALP, | 113 | | EXTERNAL | | | External | | | LAB | | + +-------+ + + + + + | Resulting Agency Comment | + + | [facility] | + + + +---------+ + + | Performing | Address | City/State/Zipcode | Phone Number | | Organization | | | | + +---------+ + + | EXTERNAL LAB | | | | + +---------+ + + External Lab: Bilirubin, Total (10/15/2015) + +-------+ + + + | Component | Value | Ref Range | Performed | Pathologist | | | | | At | Signature | + +-------+ + + + | Bilirubin, | 0.6 | | EXTERNAL | | | Total, | | | LAB | | | External | | | | | + +-------+ + + + + + | Resulting Agency Comment | + + | [facility] | + + + +---------+ + + | Performing | Address | City/State/Zipcode | Phone Number | | Organization | | | | + +---------+ + + | EXTERNAL LAB | | | | + +---------+ + + External Lab: Albumin (10/15/2015) + +-------+ + + + | Component | Value | Ref Range | Performed | Pathologist | | | | | At | Signature | + +-------+ + + + | Albumin, | 3.3 | | EXTERNAL | | | External | | | LAB | | + +-------+ + + + + + | Resulting Agency Comment | + + | [facility] | + + + +---------+ + + | Performing | Address | City/State/Zipcode | Phone Number | | Organization | | | | + +---------+ + + | EXTERNAL LAB | | | | + +---------+ + + External Lab: Protein, Total (10/15/2015) + +-------+ + + + | Component | Value | Ref Range | Performed | Pathologist | | | | | At | Signature | + +-------+ + + + | Protein, | 6.2 | | EXTERNAL | | | Total, | | | LAB | | | External | | | | | + +-------+ + + + + + | Resulting Agency Comment | + + | [facility] | + + + +---------+ + + | Performing | Address | City/State/Zipcode | Phone Number | | Organization | | | | + +---------+ + + | EXTERNAL LAB | | | | + +---------+ + + External Lab: Calcium (10/15/2015) + +-------+ + + + | Component | Value | Ref Range | Performed | Pathologist | | | | | At | Signature | + +-------+ + + + | Calcium, | 8.5 | | EXTERNAL | | | External | | | LAB | | + +-------+ + + + + + | Resulting Agency Comment | + + | [facility] | + + + +---------+ + + | Performing | Address | City/State/Zipcode | Phone Number | | Organization | | | | + +---------+ + + | EXTERNAL LAB | | | | + +---------+ + + External Lab: Carbon Dioxide (10/15/2015) + +-------+ + + + | Component [...] Resulting Agency Comment | + + | [facility] | + + + +---------+ + + | Performing | Address | City/State/Zipcode | Phone Number | | Organization | | | | + +---------+ + + | EXTERNAL LAB | | | | + +---------+ + + External Lab: Chloride (10/15/2015) + +-------+ + + + | Component | Value | Ref Range | Performed | Pathologist | | | | | At | Signature | + +-------+ + + + | Chloride, | 99 | | EXTERNAL | | | External | | | LAB | | + +-------+ + + + + + | Resulting Agency Comment | + + | [facility] | + + + +---------+ + + | Performing | Address | City/State/Zipcode | Phone Number | | Organization | | | | + +---------+ + + | EXTERNAL LAB | | | | + +---------+ + + External Lab: Potassium (10/15/2015) + +-------+ + + + | Component | Value | Ref Range | Performed | Pathologist | | | | | At | Signature | + +-------+ + + + | Potassium, | 4.1 | | EXTERNAL | | | External | | | LAB | | + +-------+ + + + + + | Resulting Agency Comment | + + | [facility] | + + + +---------+ + + | Performing | Address | City/State/Zipcode | Phone Number | | Organization | | | | + +---------+ + + | EXTERNAL LAB | | | | + +---------+ + + External Lab: Sodium (10/15/2015) + +-------+ + + + | Component | Value | Ref Range | Performed | Pathologist | | | | | At | Signature | + +-------+ + + + | Sodium, | 131 | | EXTERNAL | | | External | | | LAB | | + +-------+ + + + + + | Resulting Agency Comment | + + | [facility] | + + + +---------+ + + | Performing | Address | City/State/Zipcode | Phone Number | | Organization | | | | + +---------+ + + | EXTERNAL LAB | | | | + +---------+ + + External Lab: CBC (10/15/2015) + +-------+ + + + | Component | Value | Ref Range | Performed | Pathologist | | | | | At | Signature | + +-------+ + + + | WBC, | 7.8 | | EXTERNAL | | | External | | | LAB | | + +-------+ + + + | HGB, | 12.3 | | EXTERNAL | | | External | | | LAB | | + +-------+ + + + | HCT, | 36.8 | | EXTERNAL | | | External | | | LAB | | + +-------+ + + + | PLT, | 197 | | EXTERNAL | | | External | | | LAB | | + +-------+ + + + | RBC, | 4.19 | | EXTERNAL | | | External | | | LAB | | + +-------+ + + + | MCV, | 88 | | EXTERNAL | | | External | | | LAB | | + +-------+ + + + | RDW, | 13.3 | | EXTERNAL | | | External | | | LAB | | + +-------+ + + + + + | Resulting Agency Comment | + + | [facility] | + + + +---------+ + + | Performing | Address | City/State/Zipcode | Phone Number | | Organization | | | | + +---------+ + + | EXTERNAL LAB | | | | + +---------+ + + External Lab: Triglycerides (10/15/2015) + +-------+ + + + | Component | Value | Ref Range | Performed | Pathologist | | | | | At | Signature | + +-------+ + + + | Triglycerid | 171 | | EXTERNAL | | | es, | | | LAB | | | External | | | | | + +-------+ + + + + + | Specimen | + + | Blood | + + + + | Resulting Agency Comment | + + | [facility] | + + + +---------+ + + | Performing | Address | City/State/Zipcode | Phone Number | | Organization | | | | + +---------+ + + | EXTERNAL LAB | | | | + +---------+ + + External Lab: Cholesterol, HDL (10/15/2015) + +-------+ + + + | Component | Value | Ref Range | Performed | Pathologist | | | | | At | Signature | + +-------+ + + + | HDL | 27.7 | mg/dl | EXTERNAL | | | Cholesterol | | | LAB | | | , External | | | | | + +-------+ + + + + + | Specimen | + + | Blood | + + + + | Resulting Agency Comment | + + | [facility] | + + + +---------+ + + | Performing | Address | City/State/Zipcode | Phone Number | | Organization | | | | + +---------+ + + | EXTERNAL LAB | | | | + +---------+ + + External Lab: Cholesterol, Total (10/15/2015) + +-------+ + + + | Component | Value | Ref Range | Performed | Pathologist | | | | | At | Signature | + +-------+ + + + | Cholesterol | 134 | mg/dl | EXTERNAL | | | , Total, | | | LAB | | | External | | | | | + +-------+ + + + + + | Specimen | + + | Blood | + + + + | Resulting Agency Comment | + + | [facility] | + + + +---------+ + + | Performing | Address | City/State/Zipcode | Phone Number | | Organization | | | | + +---------+ + + | EXTERNAL LAB | | | | + +---------+ + + External Lab: Cholesterol, LDL (10/15/2015) + +-------+ + + + | Component | Value | Ref Range | Performed | Pathologist | | | | | At | Signature | + +-------+ + + + | LDL | 72 | | EXTERNAL | | | Cholesterol | | | LAB | | | , Direct, | | | | | | External | | | | | + +-------+ + + + + + | Specimen | + + | Blood | + + + + | Resulting Agency Comment | + + | [facility] | + + + +---------+ + + | Performing | Address | City/State/Zipcode | Phone Number | | Organization | | | | + +---------+ + + | EXTERNAL LAB | | | | + +---------+ + + External Lab: eGFR (10/15/2015) + +-------+ + + + | Component [...] Resulting Agency Comment | + + | [facility] | + + + +---------+ + + | Performing | Address | City/State/Zipcode | Phone Number | | Organization | | | | + +---------+ + + | EXTERNAL LAB | | | | + +---------+ + + External Lab: Creatinine (10/15/2015) + +-------+ + + + | Component | Value | Ref Range | Performed | Pathologist | | | | | At | Signature | + +-------+ + + + | Creatinine, | 2.11 | | EXTERNAL | | | External | | | LAB | | + +-------+ + + + + + | Specimen | + + | Blood | + + + + | Resulting Agency Comment | + + | [facility] | + + + +---------+ + + | Performing | Address | City/State/Zipcode | Phone Number | | Organization | | | | + +---------+ + + | EXTERNAL LAB | | | | + +---------+ + + documented in this encounter Visit Diagnoses Not on filedocumented in this encounter"
--- OUTSIDE RECORDS SUMMARY | ~2020-03-23 | XMS | Encounter Summary ---
Demographics + + + | Address | [address] | | | [place] [address] | + + + | Home Phone [...] Author | [facility] | | | and Kamaljitana | + + + | Organization | [facility] | | | and [place] | + + + | Address | Unknown | + + + | Phone | Unavailable | + + + Support + + + + + | Name | Relationship | Address | Phone | + + + + + | India Tilley | ECON | [id number] | | | | | [place], [place] | | | | | [address] | | + + + + + [...] Team Providers + +------+ + | Care Varnish Dipper Name | Role | Phone | + +------+ + PCP | Unavailable | + +------+ + Reason for Visit + + + | Reason | Comments | + + + | Rib Pain | | + + + Encounter Details +--------+ + + + + | Date | Type | Department | Care Team | Description | +--------+ + + + + | 03/23/ | Emergency | [facility] | Carlos Baker | Osteomyelitis, | | 2019 - | | [facility] | MD Venkatesh [address] | unspecified site, | | | | CENTER [address] | [address] [place] | unspecified type | | 03/24/ | | [place], [place] | [place] [address] | ([facility]) (Primary Dx); | | 2018 | | [address] | [phone] | Acute midline | | | | [phone] | | thoracic back pain; | | | | | | Discitis, | | | | | | unspecified spinal | | | | | | region | +--------+ + + + + Social [...] + + + | Blood Pressure | 163/77 | 03/23/2019 9:57 PM | | | | | PDT | | + + + + + | Pulse | 66 | 03/23/2019 9:57 PM | | | | | PDT | | + + + + + | Temperature | 37.2 C (99 F) | 03/23/2019 5:28 PM | | | | | PDT | | + + + + + | Respiratory Rate | 18 | 03/23/2019 9:57 PM | | | | | PDT | | + + + + + | Oxygen Saturation | 99% | 03/23/2019 9:57 PM | | | | | PDT | | + + + + + | Inhaled Oxygen | - | - | | | Concentration | | | | + + + + + | Weight | 66.7 kg (147 lb) | 03/23/2019 5:28 PM | | | | | PDT | | + + + + + | Height | 172.7 cm (5' 8") | 03/23/2019 5:28 PM | | | | | PDT | | + + + + + | Body Mass Index | 22.35 | 03/23/2019 5:28 PM | | | | | PDT [...] daily | capsule | | 19 | 0 | | capsule | (with meals). | [...] hours | tablet | | 19 | 0 | | | as needed for | [...] tablets by | 60 | 0 | 05/20/20 | | | oxyCODONE-acetaminop | mouth every [...] | | | ([facility]), Right hip | | | | | [...] vancomycin in | 500 mg IV on // | 14 each | 0 | 03/31/20 [...] + + +---------+ + + | vancomycin | 750 mg on dialysis | 14 each | 0 | 03/30/20 | | | IVPBIndications: | days () through | | | 19 | 9 | | Osteomyelitis | 05/04 Indications: | | | | | | | Infection of Bone | | | | | | | and Bone Marrow | | | | | + + + +---------+ + + documented as of this encounter ED Notes Carlos Baker MD - 03/23/2019 5:29 PM PDTFormatting of this note might be diff erent from the original. [facility] Estefani Tilley Emergency Department Encounter Note [address] [place] [id number] PCP:Francisca Womack PA-C [phone] CHIEF COMPLAINT: Chief Complaint Patient presents with Rib Pain ED Room: [address] Estefani Tilley is a 73 y.o. female who presents to the Emergency Department Patient reports left posterior rib pain. Had negative x ray at [facility] today. Loi lu had a fall 2 months ago in that area. Presents for evaluation of intractable back pain 6 out of 10 persistent regardless of posit ion including nocturnal back pain no focal deficits able to ambulate at baseline pain is wor sened positionally no saddle anesthesia no incontinence or retention of bowels or bladder gr adual onset of symptoms over the last 3 to 4 days states she fell a few months ago but no re cent falls no home medications tried no associated recent trauma. Language line film historian made available and used to collect historical details as needed. PAST MEDICAL & SURGICAL HISTORY Patient Active Problem List Diagnosis Date Noted Elevated hemoglobin A1c 11/08/2017 Priority: Medium Decreased glomerular filtration rate (GFR) 11/08/2017 Priority: Medium Note Last Updated: 11/08/2017 GFR 17 11/08/2017 Poor historian 11/08/2017 Priority: Low Closed right hip fracture (HCC) 12/04/2018 Non-compliance 12/04/2018 Closed fracture of neck of right femur (HCC) 12/04/2018 End stage renal disease (HCC) 01/25/2018 Anemia Arthritis Back pain History of blood clots Cancer (HCC) Heart disease Hypertension Seasonal allergies Diabetes - INSULIN Control Hypercholesteremia Facial cellulitis 06/01/2015 Left orbital abscess 06/01/2015 Orbital cellulitis on left 06/01/2015 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 Dx name changed by system update 06/04/2017 Other, mixed, or unspecified nondependent drug abuse, unspecified 10/19/2007 Note Last Updated: 10/21/2017 Overview: THC, hydrocodone Disorder of kidney and ureter 09/14/2007 Note Last Updated: 10/21/2017 Overview: severe microabuminuria. Cre 1.6. K 5.5 (01/18)RENAL REFER. 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 Trials SSRIs (lexapro, serzone, wellbutrin, celexa, remeron) in past. H/O LEFT Beast cancer - 200509/12/2007 Note Last Updated: 10/21/2017 Overview: mastectomy L Oct 19 with chemo [facility] IMO Problem List Replacement - 2017_Regulatory_1 Osteoarthrosis 09/12/2007 Note Last Updated: 10/21/2017 Overview: x 10 years. Trials sulfasalazine, hydroxychlorquine, arava IMO Problem List Replacement - 2016_Regulatory_1 Other chronic pain 09/12/2007 Note Last Updated: 10/21/2017 Overview: Several no shows, Dr. Odom will NOT continue narcotics. Past Surgical History: Procedure Laterality Date APPENDECTOMY EYE SURGERY 2009 HIP SURGERY Right 12/04/2018 Procedure: ORIF HIP W/CANNULATED SCREWS; Surgeon: Scott Koroma MD; Location: [facility] MAIN OR HYSTERECTOMY MASTECTOMY 2006 left ear NOSE SURGERY 2009 REMOVAL TUNNELED CATHETER Right 04/04/[address] 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 Cholecalciferol 4000 units TABS Take 4,000 Units by mouth Daily. (Patient not taking: R eported on 01/15/2019) doxercalciferol (HECTOROL) 1 MCG CAPS Take 0.5 mg by mouth Three times a week. epoetin karthik (EPOGEN, PROCRIT) 10,000 units/mL injection Inject 4,000 Units under the s kin Three times a week. furosemide (LASIX) 80 mg tablet Take 1 tablet by mouth Daily. (Patient not taking: Repo rted on 01/15/2019) hydrophilic ointment Apply 1 Application topically Daily. For dry skin insulin glargine (LANTUS SOLOSTAR) 100 units/mL injection (pen) Inject 12 Units under t he skin nightly. Insulin Pen Needle 31G X 5 MM MISC by Does not apply route. labetalol (NORMODYNE) 200 mg tablet Take 1 tablet by mouth 2 times daily. (Patient not taking: Reported on 01/15/2019) Lancets MISC by Does not apply route. levothyroxine (SYNTHROID, LEVOTHROID) 75 MCG tablet Take 75 mcg by mouth every morning (before breakfast). lidocaine-prilocaine (EMLA) cream Apply 1 Application topically Daily. To access 1 hour prior to dialysis losartan (COZAAR) 100 MG tablet Take 1 tablet by mouth Daily. (Patient not taking: Repo rted on 01/15/2019) montelukast (SINGULAIR) 10 mg tablet Take 10 mg by mouth nightly. For asthma or allergi es olopatadine (PATANOL) 0.1% ophthalmic solution Place 1-2 drops into both eyes 2 times d aily. ondansetron (ZOFRAN) 4 mg tablet Take 1 tablet by mouth every 6 hours as needed for Ziggy sea. (Patient not taking: Reported on 01/15/2019) oxyCODONE-acetaminophen (PERCOCET) 5-325 mg per tablet Take 1-2 tablets by mouth every 6 hours as needed for Pain. Exempt. pantoprazole (PROTONIX) 40 mg tablet Take 40 mg by mouth every morning (before breakfas t). UNABLE TO FIND Med Name: Cadoexomer Iodine 0.9 % gel. Apply a small amount to affected area as directed during dressing changes. ALLERGIES Allergies Allergen Reactions Amoxicillin Other (See Comments) Patient stated she can't tolerate amoxicillin and stated its hard on her stomach. Lisinopril Pt states she does not remember what was the reaction she had to lisinopril. I asked her if it gave her a cough and she said "I cant remember, maybe it made me sick to my stomach". Naprosyn [Naproxen] FAMILY AND SOCIAL HISTORY Family History Problem Relation Age of Onset Diabetes Other grandfather Diabetes Other grandmother Cancer Sister Social History Socioeconomic History Marital status: Single Spouse name: Not on file Number of children: Not on file Years of education: Not on file Highest education level: Not on file Tobacco Use Smoking status: Never Smoker Smokeless tobacco: Never Used Substance and Sexual Activity Alcohol use: No Alcohol/week: 0.0 oz Drug use: No REVIEW OF SYSTEMS As in history of present illness. A 10 system review was otherwise negative. PHYSICAL EXAM VITAL SIGNS: (first vital signs):Temp: 37.2 C (99 F) Pulse: 80 Resp: 14 SpO2: 97 % BP: 143/69 Body mass index is 22.35 kg/m. Constitutional: Cachectic and chronically ill female patient. HEENT: Atraumatic, PERRL, Oropharynx benign. Neck: Supple with full range of motion. No JVD, no lymphadenopathy, no meningismus and no cervical spine tenderness to palpation or step-off noted. Chest: Good air movement bilaterally. No wheezes, No, rales. Cardiovascular: Normal S1 S2 Abdomen: Soft, nontender., no rebound, guarding, or masses., bowel tones normal. and no pu lsatile masses. Back: Within normal limits, no CVA tenderness and no midline thoracic or lumbar spinal tend erness Extremities: Nontender. No lower extremity edema, no calf asymmetry. Present distal pulse s. Skin: Warm, Dry, No rashes Neurologic: Alert & oriented. No focal deficits, Speech normal, gait not tested Psychiatric: Normal mood, affect and judgement. Tender in left mid back without crepitus step-off or deformity EKG 12-lead EKG shows LABS Results for orders placed or performed during the hospital encounter of 03/23/19 CBC with Differential Result Value Ref Range WBC 5.8 4.0 - 11.0 K/uL RBC 3.36 (L) 3.70 - 5.20 M/uL Hemoglobin 11.0 (L) 11.5 - 16.0 g/dL Hematocrit 34.7 34.0 - 47.0 % MCV 103.3 (H) 83.0 - 101.0 fL MCH 32.7 28.0 - 35.0 pg MCHC 31.7 (L) 32.0 - 36.0 g/dL RDW-CV 16.2 (H) <15.0 % RDW-SD 60.7 (H) 35.1 - 46.3 fL Platelet Count 220 140 - 440 K/uL MPV 10.0 6.5 - 12.4 fL % Neutrophils 63.5 45.0 - 82.0 % % Lymphocytes 25.2 20.0 - 45.0 % % Monocytes 5.8 4.0 - 12.0 % % Eosinophils 4.3 0.0 - 5.0 % % Basophils 0.9 0.0 - 1.0 % % Immature Granulocytes 0.3 0.0 - 0.4 % Absolute Neutrophils 3.71 1.80 - 8.50 K/uL Absolute Lymphocytes 1.47 0.60 - 3.20 K/uL Absolute Monocytes 0.34 0.00 - 1.00 K/uL Absolute Eosinophils 0.25 0.00 - 0.40 K/uL Absolute Basophils 0.05 0.00 - 0.10 K/uL Absolute Immature Granulocytes 0.02 0.00 - 0.03 K/uL % nRBC 0 0 - 2 per 100 WBCs Absolute nRBC 0.00 0.00 - 0.01 K/uL Comprehensive Metabolic Panel Result Value Ref Range Na 137 136 - 145 mmol/L K 4.2 3.4 - 5.1 mmol/L Cl 101 98 - 107 mmol/L CO2 30 20 - 31 mmol/L Anion Gap 6 3 - 16 mmol/L Glucose 192 (H) 60 - 106 mg/dL BUN 18 9 - 23 mg/dL Creatinine 3.78 (H) 0.55 - 1.02 mg/dL eGFR if not 12 (L) >=60 mL/min/1.73m2 Ca 8.5 (L) 8.7 - 10.4 mg/dL Albumin 3.6 3.2 - 4.8 g/dL Bilirubin Total 0.3 0.3 - 1.2 mg/dL Total Protein 7.3 5.7 - 8.2 g/dL AST 12 0 - 34 U/L ALT 10 10 - 49 U/L Alkaline Phosphatase 58 46 - 116 U/L Globulin 3.7 2.1 - 3.8 g/dL Albumin/Globulin Ratio 1.0 0.8 - 1.9 BUN/Creatinine Ratio 4.8 C-Reactive Protein, High Sensitivity Result Value Ref Range CRP, High Sensitive 31.12 (H) <=3.00 mg/L Procalcitonin Result Value Ref Range Procalcitonin 0.23 <=0.50 ng/mL Comment Sedimentation Rate Result Value Ref Range ESR 61 (H) <30 mm/hr IMAGING STUDIES (X-Rays interpreted by ED Physician) CT chest abdomen pelvis shows likely discitis at the T11-T12 MRI order for further alissa cterization MRI TL spine ED COURSE & MEDICAL DECISION MAKING Pertinent Labs & Imaging studies were reviewed along with EMS notes and residential record s if applicable. (See chart for details) Medications and Allergy list reviewed. Nurses note and old records were reviewed The patient was seen and examined, The patient was placed on the monitor and monitored. An iv was placed. The patient was given a normal saline bolus. The patient was given iv narcotic pain medication fentanyl to which the patients pain respo nded. The patient was given Zofran for their symptoms. Screening labs are ordered remarkable for elevated ESR, Appears to have osteomyelitis on MRI. Discussed case with neurosurgery at [facility] at this time recommend IR biopsy discussed case with radiology here who recommen ds IR specialty service for this agree with plan discussed case with hospitalist services at [facility] will be admitted for further work-up treatment and monitoring as well as biopsy to gu gulshan therapy. Blood culture sent to lab she started on vancomycin and cefepime. Work-up and findings dis cussed with the patient at length verbalized understanding agrees with plan peer Last Set of Vital Signs: Temp: 37.2 C (99 F) Pulse: 66 Resp: 18 SpO2: 99 % BP: 163/77 FINAL IMPRESSION ICD-10-CM ICD-9-CM 1. Osteomyelitis, unspecified site, unspecified type (HCC) M86.9 730.20 2. Acute midline thoracic back pain M54.6 724.1 3. Discitis, unspecified spinal region M46.40 722.90 Administrations This Visit cefepime (MAXIPIME) 1 g in sodium chloride 0.9% 50 mL IVPB Admin Date 03/23/2019 Action New Bag Dose 1 g Rate 100 mL/hr Route Intravenous Administered By Victor M Prieto RN fentaNYL (PF) injection 25 mcg Admin Date 03/23/2019 Action Given Dose 25 mcg Route Intravenous Administered By Victor M Prieto RN Admin Date 03/23/2019 Action Given Dose 25 mcg Route Intravenous Administered By Vitcor M Prieto RN Admin Date 03/23/2019 Action Given Dose 25 mcg Route Intravenous Administered By Victor M Preito RN gadobutrol (GADAVIST) injection 7 mL Admin Date 03/23/2019 Action Given Dose 7 mL Route Intravenous Administered By Vinnie Henry, Technologist LORazepam (ATIVAN) injection 0.5 mg Admin Date 03/23/2019 Action Given Dose 0.5 mg Route Intravenous Administered By Victor M Prieto RN ondansetron (ZOFRAN) injection 4 mg Admin Date 03/23/2019 Action Given Dose 4 mg Route Intravenous Administered By Victor M Prieto RN sodium chloride 0.9% (NS) bolus 1,000 mL Admin Date 03/23/2019 Action New Bag Dose 1000 mL Rate 250 mL/hr Route Intravenous Administered By Victor M Prieto RN Portions of this chart were created with [email or web address] voice recognition software. Inadvertent so und alike substitutions may be present and are unintentional Carlos Baker MD 03/23/19 [id number] uttice, Galen Charles RN - 03/23/2019 5:27 PM PDTPatient reports left posterior rib pain. Had negative x ra y at [facility] today. Patient had a fall 2 months ago in that area. Denies urinary trouble. Feels like she may have sinusitisElectronically signed by Rolan Collado RN at 5:31 PM PDTdocumented in this encounter Plan of Treatment + +------+--------+ + + | Name | Type | Priori | Associated Diagnoses | Date/Time | | | | ty | | | + +------+--------+ + + | ED INFORMATION | CHRISTY | Routin | | 03/23/2019 5:04 PM | | EXCHANGE | | e | | PDT | + +------+--------+ + + documented as of this encounter Procedures + +--------+ + + + | Procedure Name | Priori | Date/Time | Associated Diagnosis | Comments | | | ty | | | | + +--------+ + + + | CULTURE, BLOOD | STAT | 03/23/2019 | | Results for this | | | | 11:33 PM | | procedure are in the | | | | PDT | | results section. | + +--------+ + + + | CULTURE, BLOOD | STAT | 03/23/2019 | | Results for this | | | | 10:55 PM | | procedure are in the | | | | PDT | | results section. | + +--------+ + + + | MRI LUMBAR SPINE W | STAT | 03/23/2019 | | Results for this | | WO CONTRAST | | 8:29 PM | | procedure are in the | | | | PDT | | results section. | + +--------+ + + + | PROCALCITONIN, SERUM | Add-On | 03/23/2019 | | Results for this | | | | 7:03 PM | | procedure are in the | | | | PDT | | results section. | + +--------+ + + + | C-REACTIVE PROTEIN, | Add-On | 03/23/2019 | | Results for this | | HIGH SENSITIVITY | | 7:03 PM | | procedure are in the | | | | PDT | | results section. | + +--------+ + + + | COMPREHENSIVE | STAT | 03/23/2019 | | Results for this | | METABOLIC PANEL | | 7:03 PM | | procedure are in the | | | | PDT | | results section. | + +--------+ + + + | SEDIMENTATION RATE | Add-On | 03/23/2019 | | Results for this | | | | 6:35 PM | | procedure are in the | | | | PDT | | results section. | + +--------+ + + + | CBC WITH | STAT | 03/23/2019 | | Results for this | | DIFFERENTIAL | | 6:35 PM | | procedure are in the | | | | PDT | | results section. | + +--------+ + + + | CT CHEST ABDOMEN | STAT | 03/23/2019 | | Results for this | | PELVIS WO CONTRAST | | 6:04 PM | | procedure are in the | | | | PDT | | results section. | + +--------+ + + + | ED INFORMATION | Routin | 03/23/2019 | | | | EXCHANGE | e | 5:04 PM | | | | | | PDT | | | + +--------+ + + + +---+--------+ | | | | | Proced | | | ure | | | Note - | | | Jena, | | | Lab In | | | | | | Hlseve | | | n - | | | | | | 2018 | | | 5:05 | | | PM PDT | | [...] | | | FICATI | | | ON? | | | | | | 9 | | | 17:03? | | | [place] | | | MS, | | | ESTEFANI | | | | | | R?MRN: | | | | | | [id number] | | | [id number] | | | riteri | | | [...] | | | St. | | | [place] | | | y | | | [...] | | | [facility] | [place] | | | [facility] | | | [facility] | | | [place] | | | y | | | [...] | | | int | | | Thomas | | | 11, | | | 2019 | | | Prov[facility] | | | ence | | | [facility] | | | [facility] | | | [place] | | | [place] | | | Emerge | | | ncy | | | back | | | pain | | | Mar | | | 12, | | | 2019 | | | [facility] | | | [place] | | | y H. | | [...] | | e of | | | inupiat | | | | | | mckeon [...] | | | St. | | | [place] | | | y H. | | [...] the | | | | | | bowling ball grader | | | al | | | [...] | | | St. | | | [place] | | | y H. | | [...] | | e of | | | inupiat | | | | | | mckeon [...] | | | [facility] | | | [place] | | | [place] | | | ID | | | [...] | | | [facility] | | | [facility] | | | [place] | | | ID | | | [...] | | | [facility] | | | [place] | | | [place] | | | ID | | | [...] | | plianc | | | e with | | | other | | | | | | medica | | | l | | | treatm | | | ent | | | and | | | regime | | | n | | | Fractu | | | re of | | | unspec | | | ified | | | part | | | of | | | neck | | | of | | | right | | | femur, | | | | | | initia | | | l | | | encoun | | | ter | | | for | | | closed | | | | | | fractu | | | re | | | Type 2 | | [...] | | | n | | | Chroni | | | [...] | | | hy | | | Chroni | | | c | | | kidney | | | | | | diseas | | | e, | | | stage | | | 5 | | | Hypert | | | ensive | | | | | | chroni | | | c | | | kidney | | | | | | diseas | | | e with | | | stage | | | 5 | | | chroni | | | c | | | kidney | | | | | | diseas | | | e or | | | end | | | stage | | | renal | | | diseas | | | e | | | Fractu | | | re of | | | unspec | | | ified | | | part | | | of | | | neck | | | of | | | right | | | femur, | | | | | | subseq | | | uent | | | encoun | | | ter | | | for | | | closed | | | | | | fractu | | | re | | | with | | | routin | | | e | | | healin | | | g Dec | | | 19, | | | 2018 | | | [facility] | | | [facility] | [place] | | | [facility] | | | ID | | | [...] | | | [facility] | | | [facility] | | | [place] | | | ID | | | [...] | | | ovider | | | [facility] | | | [...] | | | [facility] | | | [place] | | | | | | [facility] [...] | | | [id number] | | | [id number] | | | [phone] | | | PLEASE | | | [...] | +---+--------+ documented in this encounter Results Culture, Blood (03/23/2019 11:33 PM PDT) + + + + + + | Component | Value | Ref Range | Performed | Pathologist | | | | | At | Signature | + + + + + + | Culture | No growth after 5 days | | [facility] | | | | incubation. | | [facility] | | | [...] ST. | [address] | [place] | [phone] | | [facility] | | [id number] | | | - LABORATORY | | | | + + + + + Culture, Blood (03/23/2019 10:55 PM PDT) + + + + + + | Component | Value | Ref Range | Performed | Pathologist | | | | | At | Signature | + + + + + + | Culture | No growth after 5 days | | [facility] | | | | incubation. | | [facility] | | | [...] [address] | [place] | [phone] | | [facility] | | [address] | | | - LABORATORY | | | | + + + + + MRI Lumbar Spine w wo Contrast (03/23/2019 8:29 PM PDT) + + | Specimen | + + | | + + + + + | Narrative | Performed At | + + + | EXAM: MRI LUMBAR SPINE W WO CONTRAST dated 03/23/2019 5:18 PM | [facility] | | HISTORY:RIB PAIN COMPARISON: CT chest abdomen pelvis 03/23/2019. | | | TECHNIQUE: Multiplanar multisequence MR imaging of the lumbar | | | spine performed prior to and following the uneventful intravenous | | | administration of 7 cc of gadolinium contrast. This is performed on | | | a 3Tesla MRI scanner. FINDINGS:There are 5 lumbar-type vertebral | | | bodies. This is either assumed for counting purposes or documented | | | on prior studies. Mild leftward curvature. There are Modic type I | | | endplate changes at T11-T12. There is a minimal amount of fluid in | | | the anterior margin of the disc. There is diffuse edema throughout | | | all the vertebral bodies. There are Modic type I endplate changes | | | at L2-L3 and to lesser extent L3-L4. There is disc desiccation at | | | L2-L3 through L5-S1. There is anterolisthesis of L5 x 5 mm. No | | | compression deformities. The conus terminates at the thoracic | | | lumbar junction. The visible distal cord is unremarkable. No | | | abnormal epidural fluid collections. Small amount of endplate | | | signal change in the anterior inferior T10 vertebral body with | | | associated enhancement. There is some paravertebral soft tissue | | | enhancement at this level is well. The following levels are | | | evaluated in the axial plane: T11-T12: Small posterior disc | | | protrusion. Mild narrowing of the central spinal canal. The | | | neural foramen are patent. There is diffuse enhancement along the | | | endplates and throughout the vertebral bodies. There is enhancement | | | of the paravertebral soft tissues centered around the T11-T12 level. | | | T12-L1: No significant central stenosis or neural foraminal | | | narrowing. L1-2: No significant central stenosis or neural | | | foraminal narrowing. L2-3: Broad posterior disc protrusion. Mild | | | facet arthrosis and ligamentum flavum redundancy. Mild narrowing | | | of the central spinal canal. Mild/moderate bilateral neural | | | foraminal narrowing. L3-4: Broad posterior disc protrusion. Mild | | | to moderate facet arthrosis. Ligament flavum redundancy. Mild | | | facet effusions bilaterally. Mild narrowing of the central spinal | | | canal. Mild to moderate narrowing of the neural foramen | | | bilaterally. L4-5: Broad posterior disc protrusion. Moderate | | | facet arthrosis and ligamentum flavum redundancy. Moderate | | | narrowing of the central spinal canal and encroachment on the | | | subarticular recesses. Moderate left and moderate to severe right | | | neural foraminal narrowing. L5-S1: Broad posterior disc | | | protrusion. Severe facet arthrosis bilaterally. Mild narrowing of | | | the central spinal canal. Moderate right and severe left neural | | | foraminal narrowing. Partial visualization of a prominent left | | | pleural effusion. IMPRESSION - Findings remain somewhat | | | suspicious for osteomyelitis. There is not fluid signal throughout | | | the disc which would be atypical for osteomyelitis/discitis. | | | However, there is mild paravertebral soft tissue thickening and | | | enhancement. This would be atypical for strictly degenerative | | | related changes which is in the differential. Spondylosis in the | | | lumbar spine with central spinal canal narrowing most significantly | | | affecting L4-L5 where it is moderate. Neural foraminal narrowing | | | most significant affects L5-S1 on the left where it is severe. It | | | is also moderate on the left and moderate the right at L4-L5. | | | Correlate clinically for any additional signs and symptoms of | | | infection. Dictated and Signed by: Rolan Orellana MD | | | Electronically signed: 03/23/2019 9:25 PM | | + + + + + | Procedure Note | + + | [place], Rad Results In - 03/23/2019 9:29 PM PDT EXAM: MRI LUMBAR SPINE W WO CONTRAST | | dated 03/23/2019 5:18 PMHISTORY:RIB PAINCOMPARISON: CT chest abdomen pelvis | | 03/23/2019.TECHNIQUE: Multiplanar multisequence MR imaging of the lumbar spine | | performedprior to and following the uneventful intravenous administration of 7 cc | | ofgadolinium contrast. This is performed on a 3Tesla MRI scanner. FINDINGS:There are 5 | | lumbar-type vertebral bodies. This is either assumed forcounting purposes or documented | | on prior studies. Mild leftward curvature. There are Modic type I endplate changes at | | T11-T12. There is a minimal amountof fluid in the anterior margin of the disc. There | | is diffuse edema throughoutall the vertebral bodies. There are Modic type I endplate | | changes at L2-L3 andto lesser extent L3-L4. There is disc desiccation at L2-L3 through | | L5-S1. There is anterolisthesis of L5 x 5 mm. No compression deformities. The | | conusterminates at the thoracic lumbar junction. The visible distal cord | | isunremarkable. No abnormal epidural fluid collections. Small amount of endplatesignal | | change in the anterior inferior T10 vertebral body with associatedenhancement. There | | is some paravertebral soft tissue enhancement at this levelis well.The following levels | | are evaluated in the axial plane:T11-T12: Small posterior disc protrusion. Mild | | narrowing of the central spinalcanal. The neural foramen are patent. There is diffuse | | enhancement along theendplates and throughout the vertebral bodies. There is | | enhancement of theparavertebral soft tissues centered around the T11-T12 level.T12-L1: | | No significant central stenosis or neural foraminal narrowing.L1-2: No significant | | central stenosis or neural foraminal narrowing.L2-3: Broad posterior disc protrusion. | | Mild facet arthrosis and ligamentumflavum redundancy. Mild narrowing of the central | | spinal canal. Mild/moderatebilateral neural foraminal narrowing.L3-4: Broad posterior | | disc protrusion. Mild to moderate facet arthrosis. Ligament flavum redundancy. Mild | | facet effusions bilaterally. Mild narrowingof the central spinal canal. Mild to | | moderate narrowing of the neural foramenbilaterally. L4-5: Broad posterior disc | | protrusion. Moderate facet arthrosis and ligamentumflavum redundancy. Moderate | | narrowing of the central spinal canal andencroachment on the subarticular recesses. | | Moderate left and moderate to severeright neural foraminal narrowing. L5-S1: Broad | | posterior disc protrusion. Severe facet arthrosis bilaterally. Mild narrowing of the | | central spinal canal. Moderate right and severe leftneural foraminal narrowing. Partial | | visualization of a prominent left pleural effusion.IMPRESSION - Findings remain | | somewhat suspicious for osteomyelitis. There is not fluidsignal throughout the disc | | which would be atypical for osteomyelitis/discitis. However, there is mild paravertebral | | soft tissue thickening and enhancement. This would be atypical for strictly | | degenerative related changes which is in thedifferential.Spondylosis in the lumbar spine | | with central spinal canal narrowing mostsignificantly affecting L4-L5 where it is | | moderate.Neural foraminal narrowing most significant affects L5-S1 on the left where | | itis severe. It is also moderate on the left and moderate the right at L4-L5.Correlate | | clinically for any additional signs and symptoms of infection.Dictated and Signed by: | | Rolan Orellana MD Electronically signed: 03/23/2019 9:25 PM | |bilaterally. | | | |L4-5: Broad posterior disc protrusion. Moderate facet arthrosis and ligamentum | |flavum redundancy. Moderate narrowing of the central spinal canal and | |encroachment on the subarticular recesses. Moderate left and moderate to severe | |right neural foraminal narrowing. | | | |L5-S1: Broad posterior disc protrusion. Severe facet arthrosis bilaterally. | |Mild narrowing of the central spinal canal. Moderate right and severe left | |neural foraminal narrowing. | | | |Partial visualization of a prominent left pleural effusion. | | | |IMPRESSION - | | | |Findings remain somewhat suspicious for osteomyelitis. There is not fluid | |signal throughout the disc which would be atypical for osteomyelitis/discitis. | |However, there is mild paravertebral soft tissue thickening and enhancement. | |This would be atypical for strictly degenerative related changes which is in the | |differential. | | | |Spondylosis in the lumbar spine with central spinal canal narrowing most | |significantly affecting L4-L5 where it is moderate. | | | |Neural foraminal narrowing most significant affects L5-S1 on the left where it | |is severe. It is also moderate on the left and moderate the right at L4-L5. | | | |Correlate clinically for any additional signs and symptoms of infection. | | | |Dictated and Signed by: Rolan Orellana MD | | Electronically signed: 03/23/2019 9:25 PM | + + + +---------+ + + | Performing | Address | City/State/Rust[place] | Phone Number | | Organization | | | | + +---------+ + + | [facility] | | | | + +---------+ + + Procalcitonin (03/23/2019 7:03 PM PDT) + + + + + + | Component | Value | Ref Range | Performed | Pathologist | | | | | At | Signature | + + + + + + | Procalciton | 0.23 | <=0.50 ng/mL | [facility] | | [...] | [facility] | [address] | [place] | [phone] | | [facility] | | [address] | | | - LABORATORY | | | | + + + + + C-Reactive Protein, High Sensitivity (03/23/2019 7:03 PM PDT) + + + + + + | Component | Value | Ref Range | Performed | Pathologist | | | | | At | Signature | + + + + + + | CRP, High | 31.12 (H) | <=3.00 mg/L | [facility] | | | Sensitive | | | [facility] | | [...] + | [facility] | [address] | [place] | [phone] | | [facility] | | [address] | | | - LABORATORY | | | | + + + + + Comprehensive Metabolic Panel (03/23/2019 7:03 PM PDT) + + + + + + | Component | Value | Ref Range | Performed | Pathologist | | | | | At | Signature | + + + + + + | Na | 137 | 136 - 145 | [facility] | | | | | mmol/L | [facility] | | | | | | MEDICAL | | | | | | CENTER - | | | | | | LABORATORY | | + + + + + + | K | 4.2 | 3.4 - 5.1 | [facility] | | | | | mmol/L | [facility] | | | | | | MEDICAL | | | | | | CENTER - | | | | | | LABORATORY | | + + + + + + | Cl | 101 | 98 - 107 mmol/L | [facility] | | | | | | [facility] | | | | | | MEDICAL | | | | | | CENTER - | | | | | | LABORATORY | | + + + + + + | CO2 | 30 | 20 - 31 mmol/L | [facility] [...] + + + + | Glucose | 192 (H) | 60 - 106 mg/dL | [facility] | | | | | | [facility] | | | | | | MEDICAL | | | | | | CENTER - | | | | | | LABORATORY | | + + + + + + | BUN | 18 | 9 - 23 mg/dL | [facility] | | | | | | [facility] | | | | | | MEDICAL | | | | | | CENTER - | | | | | | LABORATORY | | + + + + + + | Creatinine | 3.78 (H) | 0.55 - 1.02 | [facility] [...] | | GLOMERULAR FILTRATION | mL/min/1.73m2 | [facility] | | | [facility] | RATE,ESTIMATED | | MEDICAL | | | | mL/min/1.13z3Yrbx than | | CENTER - | | [...] + + + | Calcium | 8.5 (L) | 8.7 - 10.4 | [facility] | | | | | mg/dL | [facility] | | | | | | MEDICAL | | | | | | CENTER - | | | | | | LABORATORY | | + + + + + + | Albumin | 3.6 | 3.2 - 4.8 g/dL | [facility] | | | | | | [facility] | | | | | | MEDICAL | | | | | | CENTER - | | | | | | LABORATORY | | + + + + + + | Bilirubin | 0.3 | 0.3 - 1.2 mg/dL | [facility] | | | Total | | | [facility] | | | | | | MEDICAL | | | | | | CENTER - | | | | | | LABORATORY | | + + + + + + | Total | 7.3 | 5.7 - 8.2 g/dL | [facility] | | | Protein | | | [facility] | | | | | | MEDICAL | | | | | | CENTER - | | | | | | LABORATORY | | + + + + + + | AST | 12 | 0 - 34 U/L | [facility] | | | | | | [facility] | | | | | | MEDICAL | | | | | | CENTER - | | | | | | LABORATORY | | + + + + + + | ALT | 10 | 10 - 49 U/L | [facility] | | | | | | [facility] | | | | | | MEDICAL | | | | | | CENTER - | | | | | | LABORATORY | | + + + + + + | Alkaline | 58 | 46 - 116 U/L | [facility] | | | Phosphatase | | | [facility] | | | | | | MEDICAL | | | | | | CENTER - | | | | | | LABORATORY | | + + + + + + | Globulin | 3.7 | 2.1 - 3.8 g/dL | [facility] [...] [address] | [place] | [phone] | | [facility] | | [address] | | | - LABORATORY | | | | + + + + + Sedimentation Rate (03/23/2019 6:35 PM PDT) + +--------+ + + + | Component | Value | Ref Range | Performed | Pathologist | | | | | At | Signature | + +--------+ + + + | Erythrocyte | 61 (H) | <30 mm/hr | [facility] | | | | | | [facility] | | | [facility] | | | MEDICAL | | | on Rate | | | CENTER - | | [...] [address] | [place] | [phone] | | [facility] | | [address] | | | - LABORATORY | | | | + + + + + CBC with Differential (03/23/2019 6:35 PM PDT) + + + + + + | Component | Value | Ref Range | Performed | Pathologist | | | | | At | Signature | + + + + + + | White Blood | 5.8 | 4.0 - 11.0 K/uL | [facility] | | | Cells | | | [facility] | | | | | | MEDICAL | | | | | | CENTER - | | | | | | LABORATORY | | + + + + + + | Red Blood | 3.36 (L) | 3.70 - 5.20 | [facility] | | | Cells | | M/uL | [facility] | | | | | | MEDICAL | | | | | | CENTER - | | | | | | LABORATORY | | + + + + + + | Hemoglobin | 11.0 (L) | 11.5 - 16.0 | [facility] | | | | | g/dL | [facility] | | | | | | MEDICAL | | | | | | CENTER - | | | | | | LABORATORY | | + + + + + + | Hematocrit | 34.7 | 34.0 - 47.0 % | [facility] | | | | | | [facility] | | | | | | MEDICAL | | | | | | CENTER - | | | | | | LABORATORY | | + + + + + + | MCV | 103.3 (H) | 83.0 - 101.0 fL | [facility] | | | | | | [facility] | | | | | | MEDICAL | | | | | | CENTER - | | | | | | LABORATORY | | + + + + + + | MCH | 32.7 | 28.0 - 35.0 pg | [facility] [...] + + + + | RDW-CV | 16.2 (H) | <15.0 % | [facility] | | | | | | [facility] | | | | | | MEDICAL | | | | | | CENTER - | | | | | | LABORATORY | | + + + + + + | RDW-SD | 60.7 (H) | 35.1 - 46.3 fL | [facility] | | | | | | [facility] | | | | | | MEDICAL | | | | | | CENTER - | | | | | | LABORATORY | | + + + + + + | Platelet | 220 | 140 - 440 K/uL | [facility] | | | Count | | | [facility] | | | | | | MEDICAL | | | | | | CENTER - | | | | | | LABORATORY | | + + + + + + | MPV | 10.0 | 6.5 - 12.4 fL | [facility] | | | | | | [facility] | | | | | | MEDICAL | | | | | | CENTER - | | | | | | LABORATORY | | + + + + + + | % | 63.5 | 45.0 - 82.0 % | [facility] | | | Neutrophils | | | [facility] | | | | | | MEDICAL | | | | | | CENTER - | | | | | | LABORATORY | | + + + + + + | % | 25.2 | 20.0 - 45.0 % | [facility] | | | Lymphocytes | | | [facility] | | | | | | MEDICAL | | | | | | CENTER - | | | | | | LABORATORY | | + + + + + + | % Monocytes | 5.8 | 4.0 - 12.0 % | [facility] | | | | | | [facility] | | | | | | MEDICAL | | | | | | CENTER - | | | | | | LABORATORY | | + + + + + + | % | 4.3 | 0.0 - 5.0 % | [facility] [...] + + + | % Immature | 0.3 | 0.0 - 0.4 % | [facility] | | | Granulocyte | | | [facility] | | | s | | | MEDICAL | | | | | | CENTER - | | | | | | LABORATORY | | + + + + + + | Absolute | 3.71 | 1.80 - 8.50 | [facility] | | | Neutrophils | | K/uL | [facility] | | | | | | MEDICAL | | | | | | CENTER - | | | | | | LABORATORY | | + + + + + + | Absolute | 1.47 | 0.60 - 3.20 | [facility] | | | Lymphocytes | | K/uL | [facility] | | | | | | MEDICAL | | | | | | CENTER - | | | | | | LABORATORY | | + + + + + + | Absolute | 0.34 | 0.00 - 1.00 | [facility] | | | Monocytes | | K/uL | [facility] | | | | | | MEDICAL | | | | | | CENTER - | | | | | | LABORATORY | | + + + + + + | Absolute | 0.25 | 0.00 - 0.40 | [facility] | [...] | Absolute | 0.02 | 0.00 - 0.03 | [facility] | [...] [address] | [place] | [phone] | | [facility] | | [id number] | | | - LABORATORY | | | | + + + + + CT Chest Abdomen Pelvis wo Contrast (03/23/2019 6:04 PM PDT) + + | Specimen | + + | | + + + + + | Narrative | Performed At | + + + | EXAM: CT CHEST ABDOMEN PELVIS WO CONTRAST dated 03/23/2019 5:18 PM | [facility] | | HISTORY:fall and intractable pain at L lower posterior thorax/L cva | | | upper abdomen Comparison: CT chest 11/03/[address] abdomen and | | | pelvis 11/02/2017. TECHNIQUE: Imaging is performed from chest | | | through the pubic symphysis without contrast. DOSE: DLP 296.85 | | | mGy-cm FINDINGS: CHEST: HEART AND AORTA: There is no | | | aneurysmal dilatation of the thoracic aorta. There is enlargement | | | of the main pulmonary artery. There is mild cardiac chamber | | | enlargement. No pericardial thickening. MEDIASTINUM: No | | | pneumomediastinum. No mediastinal or hilar lymphadenopathy. | | | LUNGS:There is a [id number] layering left pleural effusion. | | | There is atelectasis in the lingula. There is no pneumothorax. | | | Scarring or atelectasis in the anterior right upper lobe. No | | | significant noncalcified pulmonary nodules. The airways are patent. | | | No bronchiectasis. CHEST WALL: No axillary or visible | | | supraclavicular lymphadenopathy. No visible chest wall contusion. | | | ABDOMEN AND PELVIS: LIVER: The unenhanced liver is | | | unremarkable. GALLBLADDER: The gallbladder is not distended. | | | There are no calcified gallstones. No visible biliary ductal | | | dilatation. SPLEEN: The unenhanced spleen is unremarkable. There | | | is no splenomegaly. PANCREAS: The unenhanced pancreas is | | | unremarkable. No peripancreatic inflammatory change. ADRENALS: | | | No adrenal enlargement. No adrenal masses. KIDNEYS: The kidneys | | | are unremarkable in attenuation. There are no visible focal renal | | | lesions. There is no nephrolithiasis. There is no obstructive | | | uropathy. BOWEL: Mild to moderate stool retention. There is no | | | evidence for gastrointestinal tract obstruction. There is no | | | evidence for appendicitis. There is diverticulosis which | | | predominates in the sigmoid colon. There is no evidence for active | | | diverticulitis. VASCULATURE AND LYMPH NODES: There is no | | | aneurysmal dilatation of the abdominal aorta. There is no pelvic or | | | abdominal lymphadenopathy. There is heavy calcified disease | | | throughout the abdominal aorta and branches. BLADDER: The bladder | | | is decompressed and not well evaluated. UTERUS AND ADNEXA:The | | | uterus appears to be surgically absent. No adnexal masses. | | | BONES: There is an area of endplate irregularity and bony destruction | | | involving the T11-T12 disc level. There is sclerosis throughout the | | | T11 and T12 vertebral bodies. No significant loss of height at | | | this time. OTHER: There is no intra-abdominal free fluid. There | | | is no intra-abdominal free air. There is diffuse subcutaneous | | | edema throughout the chest abdomen and pelvis. IMPRESSION - | | | Findings are very highly suspicious for osteomyelitis/discitis at the | | | T11-T12 level. Small to moderate layering left pleural effusion. | | | Diffuse subcutaneous edema throughout the chest, abdomen, and | | | pelvis can be seen with third spacing of fluid. Diverticulosis | | | without evidence for active diverticulitis. Dictated and Signed | | | by: Rolan Orellana MD Electronically signed: 03/23/2019 6:41 PM | | + + + + + | Procedure Note | + + | [place], Rad Results In - 03/23/2019 6:44 PM PDT EXAM: CT CHEST ABDOMEN PELVIS WO | | CONTRAST dated 03/23/2019 5:18 PMHISTORY:fall and intractable pain at L lower posterior | | thorax/L cva upperabdomenComparison: CT chest 11/03/[address] abdomen and pelvis | | 11/02/2017.TECHNIQUE: Imaging is performed from chest through the pubic symphysis | | withoutcontrast.DOSE: DLP 296.85 mGy-cmFINDINGS: CHEST: HEART AND AORTA: There is no | | aneurysmal dilatation of the thoracic aorta. Thereis enlargement of the main pulmonary | | artery. There is mild cardiac chamberenlargement. No pericardial | | thickening.MEDIASTINUM: No pneumomediastinum. No mediastinal or hilar | | lymphadenopathy.LUNGS:There is a ljivo-ob-dftbtvaq layering left pleural effusion. | | There isatelectasis in the lingula. There is no pneumothorax. Scarring or | | atelectasisin the anterior right upper lobe. No significant noncalcified | | pulmonarynodules. The airways are patent. No bronchiectasis.CHEST WALL: No axillary or | | visible supraclavicular lymphadenopathy. No visiblechest wall contusion.ABDOMEN AND | | PELVIS:LIVER: The unenhanced liver is unremarkable.GALLBLADDER: The gallbladder is not | | distended. There are no calcifiedgallstones. No visible biliary ductal | | dilatation.SPLEEN: The unenhanced spleen is unremarkable. There is no | | splenomegaly.PANCREAS: The unenhanced pancreas is unremarkable. No | | peripancreaticinflammatory change.ADRENALS: No adrenal enlargement. No adrenal | | masses.KIDNEYS: The kidneys are unremarkable in attenuation. There are no visiblefocal | | renal lesions. There is no nephrolithiasis. There is no obstructiveuropathy.BOWEL: | | Mild to moderate stool retention. There is no evidence forgastrointestinal tract | | obstruction. There is no evidence for appendicitis. There is diverticulosis which | | predominates in the sigmoid colon. There is noevidence for active | | diverticulitis.VASCULATURE AND LYMPH NODES: There is no aneurysmal dilatation of the | | abdominalaorta. There is no pelvic or abdominal lymphadenopathy. There is | | heavycalcified disease throughout the abdominal aorta and branches.BLADDER: The bladder | | is decompressed and not well evaluated.UTERUS AND ADNEXA:The uterus appears to be | | surgically absent. No adnexalmasses.BONES: There is an area of endplate irregularity | | and bony destruction involvingthe T11-T12 disc level. There is sclerosis throughout the | | T11 and T12 vertebralbodies. No significant loss of height at this time. OTHER: There | | is no intra-abdominal free fluid. There is no intra-abdominal freeair. There is | | diffuse subcutaneous edema throughout the chest abdomen andpelvis.IMPRESSION -Findings | | are very highly suspicious for osteomyelitis/discitis at the [id number].Small to | | moderate layering left pleural effusion.Diffuse subcutaneous edema throughout the chest, | | abdomen, and pelvis can be seenwith third spacing of fluid.Diverticulosis without | | evidence for active diverticulitis.Dictated and Signed by: Rolan Orellana MD | | Electronically signed: 03/23/2019 6:41 PM | |SPLEEN: The unenhanced spleen is unremarkable. There is no splenomegaly. | | | |PANCREAS: The unenhanced pancreas is unremarkable. No peripancreatic | |inflammatory change. | | | |ADRENALS: No adrenal enlargement. No adrenal masses. | | | |KIDNEYS: The kidneys are unremarkable in attenuation. There are no visible | |focal renal lesions. There is no nephrolithiasis. There is no obstructive | |uropathy. | | | |BOWEL: Mild to moderate stool retention. There is no evidence for | |gastrointestinal tract obstruction. There is no evidence for appendicitis. | |There is diverticulosis which predominates in the sigmoid colon. There is no | |evidence for active diverticulitis. | | | |VASCULATURE AND LYMPH NODES: There is no aneurysmal dilatation of the abdominal | |aorta. There is no pelvic or abdominal lymphadenopathy. There is heavy | |calcified disease throughout the abdominal aorta and branches. | | | |BLADDER: The bladder is decompressed and not well evaluated. | | | |UTERUS AND ADNEXA:The uterus appears to be surgically absent. No adnexal | |masses. | | | |BONES: There is an area of endplate irregularity and bony destruction involving | |the T11-T12 disc level. There is sclerosis throughout the T11 and T12 vertebral | |bodies. No significant loss of height at this time. | | | |OTHER: There is no intra-abdominal free fluid. There is no intra-abdominal free | |air. There is diffuse subcutaneous edema throughout the chest abdomen and | |pelvis. | | | |IMPRESSION - | | | |Findings are very highly suspicious for osteomyelitis/discitis at the T11-T12 | |level. | | | |Small to moderate layering left pleural effusion. | | | |Diffuse subcutaneous edema throughout the chest, abdomen, and pelvis can be seen | |with third spacing of fluid. | | | |Diverticulosis without evidence for active diverticulitis. | | | |Dictated and Signed by: Rolan Orellana MD | | Electronically signed: 03/23/2019 6:41 PM | + + + +---------+ + [...] (HCC) - Primary | + + | Acute midline thoracic back pain | + + | Discitis, unspecified spinal region | + + documented in this encounter Administered Medications + +---------+ +------+-------+------+ | Medication Order | MAR | Action | Dose | Rate | Site | | | Action | Date | | | | + +---------+ +------+-------+------+ | cefepime (MAXIPIME) 1 g in | New Bag | 03/23/20 | 1 g | 100 | | | sodium chloride 0.9% 50 mL IVPB | | 19 11:32 | | mL/hr | | | 1 g, Intravenous, Administer over | | PM PDT | | | | | 30 Minutes, ONCE, Dian 03/23/19 at | | | | | | | 2310, For 1 dose, Activate | | | | | | | system and mix before use., | | | | | | | Indications: Osteomyelitis | | | | | | + +---------+ +------+-------+------+ +---+---+ | | | +---+---+ + +-------+ +--------+---+---+ | fentaNYL (PF) injection 25 mcg | Given | 03/23/20 | 25 mcg | | | | 25 mcg, Intravenous, ONCE, Dian | | 19 6:31 | | | | | 03/23/19 at 1755, For 1 dose | | PM PDT | | | | + +-------+ +--------+---+---+ +---+---+ | | | +---+---+ + +-------+ +--------+---+---+ | fentaNYL (PF) injection 25 mcg | Given | 03/23/20 | 25 mcg | | | | 25 mcg, Intravenous, ONCE, Dian | | 19 7:47 | | | | | 03/23/19 at 1925, For 1 dose | | PM PDT | | | | + +-------+ +--------+---+---+ +---+---+ | | | +---+---+ + +-------+ +--------+---+---+ | fentaNYL (PF) injection 25 mcg | Given | 03/23/20 | 25 mcg | | | | 25 mcg, Intravenous, ONCE, Dian | | 19 10:54 | | | | | 03/23/19 at 2235, For 1 dose | | PM PDT | | | | + +-------+ +--------+---+---+ +---+---+ | | | +---+---+ + +-------+ +-------+---+---+ | gadobutrol (GADAVIST) injection | Given | 03/23/20 | 7 mLs | | | | 7 mL 7 mL, Intravenous, ONCE | | 19 8:33 | | | | | PRN, Other, Starting Dian 03/23/19 | | PM PDT | | | | | at 2032, For 1 dose, MRI | | | | | | + +-------+ +-------+---+---+ +---+---+ | | | +---+---+ + +-------+ +--------+---+---+ | LORazepam (ATIVAN) injection | Given | 03/23/20 | 0.5 mg | | | | 0.5 mg 0.5 mg, Intravenous, | | 19 8:22 | | | | | ONCE, Dian 03/23/19 at 2015, For 1 | | PM PDT | | | | | dose | | | | | | + +-------+ +--------+---+---+ +---+---+ | | | +---+---+ + +-------+ +------+---+---+ | ondansetron (ZOFRAN) injection | Given | 03/23/20 | 4 mg | | | | 4 mg 4 mg, Intravenous, ONCE, | | 19 6:31 | | | | | Dian 03/23/19 at 1755, For 1 dose | | PM PDT | | | | + +-------+ +------+---+---+ +---+---+ | | | +---+---+ + +---------+ +--------+-------+---+ | sodium chloride 0.9% (NS) bolus | New Bag | 03/23/20 | 1,000 | 250 | | | 1,000 mL 1,000 mL, Intravenous, | | 19 6:30 | mLs | mL/hr | | | Administer over 4 Hours, ONCE, | | PM PDT | | | | | Dian 03/23/19 at 1755, For 1 dose | | | | | | + +---------+ +--------+-------+---+ +---+---+ | | | +---+---+ + +---------+ + +-------+---+ | vancomycin 1,250 mg in sodium | New Bag | 03/23/20 | 1,250 mg | 175 | | | chloride 0.9% 250 mL IVPB 1,250 | | 19 11:57 | | mL/hr | | | mg, Intravenous, Administer over | | PM PDT | | | | | 90 Minutes, ONCE, Dian 03/23/19 at | | | | | | | 2240, For 1 dose, Keep in | | | | | | | refrigerator., Indications: | | | | | | | Osteomyelitis | | | | | | + +---------+ + +-------+---+ + +---+ | | | + +---+ | vancomycin per pharmacy | | | PHARMACY CONSULT, Starting Dian | | | 03/23/19 at 2229, Indications: | | | Osteomyelitis | | + +---+ | | | + +---+ documented in this encounter
--- OUTSIDE RECORDS SUMMARY | ~2020-03-23 | XMS | Encounter Summary ---
Demographics + + + | Address | [address] | | | [place] [address] | + + + | Home Phone | | + + + | Preferred Language | Unknown | + + + | Marital Status | Single | + + + | Church Affiliation | Unknown | + + + | Race | Unknown | + + + | Ethnic Group | Unknown | + + + Author + + + | Author | [facility] | | | and [place] | + + + | Organization | [facility] | | | and [place] | + + + | Address | Unknown | + + + | Phone | Unavailable | + + + Support + + + + + | Name | Relationship | Address | Phone | + + + + + | India Tilley | ECON | [address] | | | | | [place], [place] | | | | | [address] | | + + + + + [...] Team Providers + +------+ + | Care Check Processing Clerk Name | Role | Phone | + +------+ + | Renato Pierson | PCP | | + +------+ + Reason for Visit Diagnostic/Screening (Emergency) +--------+--------+ + + + + | Status | Reason | Specialty | Diagnoses / | Referred By | Referred To | | | | | Procedures | Contact | Contact | +--------+--------+ + + + + | Closed | | Radiology | Diagnoses | [facility] | [facility] | | | | | Infection | Nick Miller | [address] | | | | | of | [place], | [address] | | | | | 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 [address] | | | | | al disc | [address] | [place], [place] | | | | | (pyogenic), | [place], [place] | [address] | | | | | thoracic | [address] | Phone: | | | | | region ([facility]) | Phone: | [phone] | | | | | | [phone] | Fax: | | | | | 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: | [phone] | | | | | s of | [phone] | | | | | | thoracic [...] + + | 05/22/ | Hospital | [facility] | Fabiana Miller, | No Show | | 2019 | Encounter | [facility] | Nick Apodaca MD | | | | | [address] | [address] | | | | | [place], [place] | [place] [address] | | | | | [address] | [phone] | | | | | [phone] | | | +--------+ + + + [...] Diagnoses Not on filedocumented in this encounter Additional Health Concerns + [...] + + + + | Rule out COVID-19 | 01/18/2020 | 01/18/2020 | 01/19/2020 1:49 PM | | | | | PDT | + + + + + documented as of this encounter"
--- OUTSIDE RECORDS SUMMARY | ~2020-03-23 | XMS | Encounter Summary ---
Demographics + + + | Address | [address] | | | [place] [address] | + + + | Home Phone [...] | [facility] | | | and [place] | + + + | Organization | [facility] | | | and [place] | + + + | Address | Unknown | + + + | Phone | Unavailable | + + + Support + + + + + | Name | Relationship | Address | Phone | + + + + + | India Tilley | [place]CON | [address] | | | | | [place], [place] | | | | | [address] | | + + + + + [...] Team Providers + +------+ + | Care Weatherseal Technician Name | Role | Phone | + +------+ + PCP | Unavailable | + +------+ + Encounter Details +--------+ + + + + | Date | Type | Department | Care Team | Description | +--------+ + + + + | 02/28/ | [facility] | [facility] | | | | 2006 | Encounter | MED CTR XRAY [address] | | | | | | [place] | | | | | | [place] [address] | | | | | | [phone] | | | +--------+ + + + [...]
--- OUTSIDE RECORDS SUMMARY | ~2020-03-23 | XMS | Encounter Summary ---
Demographics + + + | Address | [address] | | | [place] [address] | + + + | Home Phone | | + + + | Preferred Language | Unknown | + + + | Marital Status | Single | + + + | Protestant Affiliation | Unknown | + + + | Race | Unknown | + + + | Ethnic Group | Unknown | + + + Author + + + | Author | [facility] | | | and [place] | + + + | Organization | [facility] | | | and [place] | + + + | Address | Unknown | + + + | Phone | Unavailable | + + + Support + + + + + | Name | Relationship | Address | Phone | + + + + + | India Tilley | [place]CON | [address] | | | | | [place], [place] | | | | | [address] | | + + + + + [...] Team Providers + +------+ + | Care Continuous Mining Machine Lode Miner Name | Role | Phone | + +------+ + | Renato Pierson | PCP | | + +------+ + Encounter Details +--------+ + + + + | Date | Type | Department | Care Team | Description | +--------+ + + + + | 06/13/ | Orders Only | [facility] | Gerald Lee, | 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 | | [address] | Business Systems Developer | intervertebral disc | | | | [facility] [place] | | (pyogenic), thoracic | | | | [address] | | region ([facility]); | | | | [phone] | | Osteomyelitis of | | | | | | thoracic vertebra | | | | | | ([facility]) | +--------+ + + + [...] + | SEDIMENTATION RATE | Routin | 06/13/2019 | Infection of | Results for this | | | e | 3:12 PM | intervertebral disc | procedure are in the | | | | PDT | (pyogenic), thoracic | results section. | | | | | region ([facility]) | | | | | | Osteomyelitis of | | | | | | thoracic vertebra | | | | | | ([facility]) | | + +--------+ + + + | C-REACTIVE PROTEIN | Routin | 06/13/2019 | Infection of | Results for this | | | e | 3:12 PM | intervertebral disc | procedure are in the | | | | PDT | (pyogenic), thoracic | results section. | | | | | region ([facility]) | | | | | | Osteomyelitis of | | | | | | thoracic vertebra | | | | | | ([facility]) | | + +--------+ + + + documented in this encounter Results Sedimentation Rate (06/13/2019 3:12 PM PDT) + + + + + + | Component | Value | Ref Range | Performed | Pathologist | | | | | At | Signature | + + + + + + | ESR | 53 (H)Comment: Testing | 0 - 30 mm/Hr | REFERENCE | | | | performed at [facility];[address] | | LAB | | | | [place] | | [facility] | | | | [address];[place] [address] | | LABORATORY | | + + + + + + + + | Specimen | + + | Blood | + + + + + + + | Performing | Address | City/State/Zipcode | Phone Number | | Organization | | | | + + + + + | REFERENCE LAB | [facility] | [place] | [phone] | | [facility] | [address] | [address] | | | LABORATORY | | | | + + + + + | REFERENCE LAB | [address] [facility] | [place] | | | [facility] | [address] | [address] | | | LABORATORY | | | | + + + + + C-Reactive Protein (06/13/2019 3:12 PM PDT) + + + + + + | Component | Value | Ref Range | Performed | Pathologist | | | | | At | Signature | + + + + + + | CRP | 1.0 (H)Comment: Testing | <0.5 mg/dL | REFERENCE | | | | performed at [facility];[address] | | LAB | | | | [place] | | [facility] | | | | [address];[place] [address] | | LABORATORY | | + + + + + + + + | Specimen | + + | Blood | + + + + + + + | Performing | Address | City/State/Zipcode | Phone Number | | Organization | | | | + + + + + | REFERENCE LAB | [address] [facility] | [place] | [phone] | | [facility] | [address] | [address] | | | LABORATORY | | | | + + + + + | REFERENCE LAB | [address] | [place], [place] | | | [facility] | [address] | [address] | | | LABORATORY | | | | + + + + + documented in this encounter Visit Diagnoses + + | Diagnosis | + + | Infection of intervertebral disc (pyogenic), thoracic region (HCC) | + + | Osteomyelitis of thoracic vertebra (HCC) Unspecified osteomyelitis, other specified | | site | + + documented in this encounter Additional Health Concerns [...]
--- OUTSIDE RECORDS SUMMARY | ~2020-03-23 | XMS | Encounter Summary ---
Demographics + + + | Address | [address] | | | [place] [address] | + + + | Home Phone [...] | Author | [facility] | | | and [place] | + + + | Organization | [facility] | | | and [place] | + + + | Address | Unknown | + + + | Phone | Unavailable | + + + Support + + + + + | Name | Relationship | Address | Phone | + + + + + | India Tilley | [place] | [address] | | | | | [place], [place] | | | | | [address] | | + + + + + [...] Providers + +------+ + | Care Supervisor Remelt Name | Role | Phone | + +------+ + PCP | Unavailable | + +------+ + Encounter Details +--------+ + + + + | Date | Type | Department | Care Team | Description | +--------+ + + + + | 05/18/ | Orders Only | [facility] | Fabiana Miller, | | | 2018 | | INFECTIOUS DISEASE | Nick Apodaca MD | | | | | [address] | [address] | | | | | [facility] | [place] [address] | | | | | [address] | [phone] | | | | | [phone] | | | +--------+ + + + [...] REFERENCE | | | | TCL;[address] | | LAB | | | | Bl[address];[place] | | [facility] | | | | [id number]: Testing | | LABORATORY | | | | performed at [facility], [address] | | | | | [facility] [address], | | | | | | [place] [address] | | | | + + + + + + + + | Specimen | + + | | + + + + + + + | Performing | Address | City/State/Zipcode | Phone Number | | Organization | | | | + + + + + | REFERENCE LAB | [address] [facility] | [place] | [phone] | | [facility] | [address] | [address] | | | LABORATORY | | | | + + + + + | REFERENCE LAB | [address] | [place] | | | [facility] | [address] | [address] | | | LABORATORY | | | | + + + + + documented in this encounter Visit Diagnoses Not on filedocumented in this encounter"
--- OUTSIDE RECORDS SUMMARY | ~2020-03-23 | XMS | Encounter Summary ---
Demographics + + + | Address | [address] | | | [place] [address] | + + + | Home Phone [...] | [facility] | | | and [place] | + + + | Organization | [facility] | | | and [place] | + + + | Address | Unknown | + + + | Phone | Unavailable | + + + Support + + + + + | Name | Relationship | Address | Phone | + + + + + | India Tilley | [place] | [address] | | | | | [place], [place] | | | | | [address] | | + + + + + [...] Team Providers + +------+ + | Care Residential Sales Representative Name | Role | Phone | + +------+ + PCP | Unavailable | + +------+ + Reason for Visit + +--------+ + | Reason | Onset | Comments | | | Date | | + +--------+ + | Medication Refill | 12/19/ | | | | 2018 | | + +--------+ + | Medication Refill | 12/20/ | | | | 2019 | | + +--------+ + Encounter Details +--------+--------+ + + + | Date | Type | Department | Care Team | Description | +--------+--------+ + + + | 12/19/ | Refill | [facility] | Scott Koroma, | Medication Refill; | | 2018 | | ORTHOPEDIC SURGERY | [address] | Medication Refill | | | | [address] | [place] | | | | | [place] | [address] | | | | | [address] | | | | | | [phone] | | | +--------+--------+ + + + [...] this encounter Miscellaneous Notes Telephone Encounter - Wendy Espinal CNA - 12/20/2018 2:17 PM PDTResantiago Chin picked up RX for pt with photo ID 2:1 8 PM PDTTelephone Encounter - Soledad Marlow - 12/20/2018 12:05 PM PDTPATIENT NOTIFIEDElec tronically signed by Soledad Marlow at 12/20/2018 12:06 PM PDTTelephone Encounter - Ashli Hanks Cert MA - 12/19/2018 4:23 PM PDTPMP Report ran and reviewed prior to refi ll. Per Dr.Willard hair to fill the medication requested. Rx prepared and signed by . Rx placed in the designated area for the patient poultry picker. Please contact the patient to let the patient know that the Rx is ready. The patient will need to provide a form of ID when p icking up the prescription. Please verify the patients ID at poultry picker. elephon e Encounter - Ashli Blackman Cert MA - 12/19/2018 10:43 AM PDTOrder for wheel parul r was faxed to [facility]. elephon e Encounter - Soledad Marlow - 12/19/2018 10:00 AM [facility] CALL[facility] TO GET AN UPDATE ON PATIENTS WHEEL CHAIR. elephone Ilia - Soledad Marlow - 12/19/2018 9:17 AM PDTPatient called s tating that she is out of her pain meds and needs a script. Dr Solitario wrote the last script . Patient called requesting refill. Medication: Percocet 5mg she thinks? Out in: 0 days Phone: [phone] Who will poultry picker: Patient will have someone poultry picker meds documented in this encounter Plan of Treatment Not on filedocumented as of this encounter Visit Diagnoses Not on filedocumented in this encounter"
--- OUTSIDE RECORDS SUMMARY | ~2020-03-23 | XMS | Encounter Summary ---
Demographics + + + | Address | [address] | | | [place] [address] | + + + | Home Phone | | + + + | Preferred Language | Unknown | + + + | Marital Status | Single | + + + | Pentecostalism Affiliation | Unknown | + + + | Race | Unknown | + + + | Ethnic Group | Unknown | + + + Author + + + | Author | [facility] | | | and [place] | + + + | Organization | [facility] | | | and [place] | + + + | Address | Unknown | + + + | Phone | Unavailable | + + + Support + + + + + | Name | Relationship | Address | Phone | + + + + + | India Tilley | [place] | [address] | | | | | [place], [place] | | | | | [address] | | + + + + + [...] Providers + +------+ + | Care Chief Information Security Officer Name | Role | Phone | + +------+ + PCP | Unavailable | + +------+ + Reason for Visit +---------+--------+ + | Reason | Onset | Comments | | | Date | | +---------+--------+ + | Strategic Communications Manager | 12/12/ | | | | 2019 | | +---------+--------+ + Encounter Details +--------+ + + + + | Date | Type | Department | Care Team | Description | +--------+ + + + + | 12/12/ | Telephone | [facility] | Scott Koroma, | Strategic Communications Manager | | 2018 | | ORTHOPEDIC SURGERY | MD [address] | | | | | [address] | [place] | | | | | [place] | [address] | | | | | [address] | | | | | | [phone] | | | +--------+ + + + [...] this encounter Miscellaneous Notes Telephone Encounter - Ashli Blackman Cert MA - 12/13/2018 9:14 AM ROSAI called an d spoke with Estefani a script for Zofran 4mg ODT tablets was phoned into [facility] at [phone]. The patient was notified this was sent in. ddendum Note - Scott Koroma MD - 09/2018 5:15 PM PDT Addended by: SCOTT KOROMA on: 12/12/2018 17:15 Modules accepted: Orders elephone Encounter - Soledad Marlow - 12/12/2018 3:20 PM PDTPatient nurse called and stated patient had fei po 12/04/[address] Koroma. Patient scheduled. elephone Encounter - Dalia Campuzano - 12/12/2018 11:43 AM PDTPa tient was seen at: [facility] 12/04/2018 Body Part Injured: closed right hip fracture surgical Injury occurred on:12/04/2018 How did injury occur: fell down at home Is this a work Injury: no Imaging:yes Splint/Sling/boot: Have you even been seen by our providers: doesn't think so Caller name and phone number: [phone] pateint states having a lot of issues with pain medication. Making her vomit. Please advi se and call. documented in this encou nter Plan of Treatment Not on filedocumented as of this encounter Visit Diagnoses Not on filedocumented in this encounter"
--- OUTSIDE RECORDS SUMMARY | ~2020-03-23 | XMS | Encounter Summary ---
Demographics + + + | Address | [address] | | | [place] [address] | + + + | Home Phone [...] | Author | [facility] | | | and Kamaljitana | + + + | Organization | [facility] | | | and [place] | + + + | Address | Unknown | + + + | Phone | Unavailable | + + + Support + + + + + | Name | Relationship | Address | Phone | + + + + + | India Tilley | ECON | [address] | | | | | [place], [place] | | | | | [address] | | + + + + + [...] Team Providers + +------+ + | Care Ecology Teacher Name | Role | Phone | [...] + + | 03/28/ | Surgery | BETH LIZ | Jose Jiménez, | TUNNEL PICC LINE | | 2019 | | [facility] | MD [address] | PLACEMENT-6fr 22cm | | | | INTRA OP [address] | [address] [place], | BARD Power Line | | | | [place] | [place] [address] | | | | | [address] | [phone] | | | | | [phone] | | | +--------+---------+ + + + [...] + + + | Blood Pressure | 141/66 | 03/28/2019 12:52 PM | | | | | PDT | | + + + + + | Pulse | 69 | 03/28/2019 12:52 PM | | | | | PDT | | + + + + + | Temperature | 36.3 C (97.3 F) | 03/28/2019 7:32 AM | | | | | PDT | | + + + + + | Respiratory Rate | 16 | 03/28/2019 12:52 PM | | | | | PDT | | + + + + + | Oxygen Saturation | 99% | 03/28/2019 12:52 PM | | | | | PDT | | + + + + + | Inhaled Oxygen | - | - | | | Concentration | | | | + + + + + | Weight | 62 kg (136 lb 11 oz) | 03/24/2019 6:35 PM | | | | | PDT [...] completion of IV abx Follow Up Appointments: [facility] [address] [facility] [address] [facility] [address] [place] [address] [phone] [facility] [address] [facility] [id number] Discharge Disposition: Home with Home Health Consultants This Admission: ID, Nephrology Hospital Course: 73-year-old female with history of ESRD on hemodialysis, hypertension, type 2 diabetes, hyp othyroidism, chronic anemia, hyperlipidemia with a history of stroke transferred from [facility] [place] for evaluation of T11-T12 lesion noted on [...] had planned to go to SNF ([facility] in [place] - of which has accepted her and [...] dialysis days after dialysis Osteomyelitis/Discitis of T11, [id number] -MRI spine 03/23/19: "mild paravertebral soft tissue [...] dialysis patient - has OP clinic in [place] already Macrocytic anemia likely secondary to-likely anemia [...] Value Units Date/Time Culture, Aerobic + Anaerobic [[id number]] Collected: 03/24/19 1514 Order Status: Completed Lab Status: Final result Updated: 03/29/19 0718 Specimen: Body Fluid from Vertebrae, Thoracic FINAL REPORT -- No Growth No anaerobes isolated Gram Stain Few Neutrophils No squamous epithelial cells seen No organisms seen Comment: Performed by [facility] [address] [place] [address] Gram Stain [[id number]] Collected: 03/24/19 1514 Order Status: Canceled Lab Status: No result Updated: 03/24/19 151 Specimen: Body Fluid from Vertebrae, Thoracic Culture, AFB Smear [[id number]] Collected: 03/24/19 151 Order Status: Completed Lab Status: Preliminary result Updated: 03/25/19 1054 Specimen: Body Fluid from Vertebrae, Thoracic AFB Smear Result No Acid Fast Bacilli Seen Comment: Performed by [facility] [address] [place] [address] Culture, Fungus, Smear [[id number]] Collected: 03/24/19 151 Order Status: Completed Lab Status: Preliminary result Updated: 03/25/19 1039 Specimen: Body Fluid from Vertebrae, Thoracic CALCOFLUOR No fungal elements seen Comment: Performed by [facility] [address] [place] [address] Culture, Blood [[id number]] Collected: 03/23/19 2333 Order Status: Completed Lab Status: Final result Updated: 03/28/19 2352 Specimen: Blood Culture No growth after 5 days incubation. Culture, Blood [[id number]] Collected: 03/23/19 2255 Order Status: Completed Lab [...] this chart may have been created with [employer] voice recognition software. Occasi onal wrong-word or [...] | | | | | | | ([facility]), Right hip | | | [...] 03/31/2019 5:42 PM PDTPatient left with family, [facility] and i nstructions received before discharge and RX's filled at outpt pharmacy. VSS, ambulating wit h SBA, A&O x4, accepting of discharge. Dialysis completed this AM. Pain controlled with q4 o xy, LD 1400. Home health will f/u tomorrow. AVS reviewed and sent with patient, verbalized u nderstanding. Merry Hess MSW - 03/31/2019 11:05 AM PDTSOCIAL WORK PLAN: Home with [facility] NEXT STEPS: 1. Pt to follow up with [facility] 2. [facility] to follow up with pt at dc INTERVENTION: SW spoke with [facility], pt has a $2.50 out of pocket cost weekly, pt is agreeable to pay for this. Therefore pt will dc today with [facility]. SW provided [facility] with hard script for IV abx. SW faxed over HH order to [facility], SW faxed over IV vanco script to [facility]. [facility] notified of pt's dc home. notified. [facility] to meet with pt later this afternoon for teach. SW provided pt with 3 gas cards to assist with transportation. No further dc needs identified. SW received call from [facility] clinic that they cannot provide IV Vanco as Vanco h as not been consigned by [employer] that has privileges in [place]. IV Vanco will now be done b y Candie, [employer] faxed over hard script to [facility]. They will have both IV Abx ready and will teach pt shortly. No further dc needs identified. CONTACTS: Yina La: sister India Tilley: sister [place] Transportation: [place] Medicaid Transportation fax: [phone] [facility]: [phone] fax: [phone] [facility] [phone] [facility]: [phone] [facility]: [phone] [facility] FAX: [phone] aMichelle bell DO - 03/31/2019 10:12 AM PDT Patient: Estefani Tilley Date of : 1945 Admit Date: 03/24/2019 Date of Service: 03/31/2019 PCP: Francisca Womack PA-C Hospital Day: Hospital Day: 8 Hospital Course: 73-year-old female with history of ESRD on hemodialysis, hypertension, type 2 diabetes, hyp othyroidism, chronic anemia, hyperlipidemia with a history of stroke transferred from [facility] for evaluation of T11-T12 lesion noted [...] initially had planned to go to SNF ([facility] in [place], [place] - of which has accepted her [...] dialysis patient - has OP clinic in [place] already Macrocytic anemia likely secondary to-likely anemia [...] hoping to arrange home IV antibiotics through [facility]. Awaiting to see if insurance will cover [...] 0659 03/30 07 - 03/31 0659 03/31 0700 - 03/31 1013 Most Rec ent Temp [...] - 99 mg/dL Final Comment: Performed by [facility] [address] [place] [address] 03/30/2019 21:14 200 (H) 65 - 99 mg/dL Final Comment: Performed by [facility] [address] [place] [address] 03/30/2019 17:46 111 (H) 65 - 99 mg/dL Final Comment: Performed by [facility] [address] [place] [address] 12/09/2018 18:05 113 (H) 70 - 109 [...] this chart may have been created with [employer] voice recognition software. Occasi onal wrong-word or sound-alike substitutions may have occurred due to the inherent mckeon itations of voice recognition software. Please read the chart carefully and recognize, using context, where these substitutions have occurred Jesus Wade MD - 03/31/2019 8:26 AM PDT . Infectious Diseases Progress Note Pt. Name/Age/: Estefani Tilley 73 y.o. 1945 Med. Record Number: [id number] Date of admission: 03/24/2019 Patient admitted with [...] Electronically signed by: Jesus Whitney, 03/31/2019 8:26 [facility] Robb Phillips, PharmD - 03/31/2019 7:25 AM [...] Nunez MD - 03/30/2019 9:45 PM PDT [facility] INPATIENT ROUNDING NOTE Date of Service: 03/30/2019 Rounding Physician: Randy Corrigan MD Patient Name: Estefani Tilley : 1945 Medical Record: [id number] Hospital Summary: Estefani Tilley is a 73 y.o. female with a PMHx of ESRD, HTN, Dm type 2, hypothyroidism, HLd, CVA who is under the care of Dr Muñoz at [facility] who dialyzes MWF admitted with [...] Min: 95 % Max: 98 % 03/29 07 - 03/30 0700 In: 713 [P.O.:660] Out: 2000 AOx3 JVp not elevated Chest is clear CVS RRR Abdomen Nt Ext no edema LUE AVF with good bruit and thrill Recent Labs Lab 03/30/19 0503/29/19 0503/28/19 0458 WBC 4.43 4.55 4.25 HGB 10.3* 10.2* 9.9* HCT 31.6* 31.8* 30.8* PLT 174 172 171 Recent Labs Lab 03/30/19 0503/29/19 0519 03/28/19 0458 03/26/19 1144 03/26/19 0411 [...] Trace Corrigan MD, 03/30/2019, 21:45 an Saldivar, PRODUCTION SUPERINTENDENT - 03/30/2019 2:34 PM PDT SOCIAL WORK D/C PLAN:DC home with [facility] providing IV-ABX and [facility] providing picc care and lab draws vs [facility] NEXT STEPS: -SW will need to follow up with [facility] regarding providing IV-ABX to pt. -SW will need to follow up with [facility] regarding providing picc care and lab draws. -SW will need to follow up with [facility] regarding having pt receive vanco do se while at dialysis center if pt is to go home with IV-ABX -SW will need to follow up with [facility] if pt is unable to go home with IV-ABX rega ridng pt's DC -SW will need to fax SNF orders, scripts and PASRR to [facility] if pt is unable to go home -SW will need to provide gas cards to pt's family for transportation home. INTERVENTION:SW spoke with pt regarding acceptance to [facility]. Pt is now wanting to go home with IV-ABX. SW spoke with [facility]. They go out to [place], [place] and have openings for nursing care. Referral faxed to [facility]. Pt is amenable to using [facility] for IV-ABX. SW spoke with CANDIE martinez who will run pt's be nefits to see if she can DC home with IV-ABX. Pt states that [facility] can provide teach to her son to help administer IV-ABX. SW left message for [facility] to see if they can provide vanco dose to pt at [facility] on Wednesday, Wednesday and Wednesday if pt is able to go home. Pt states that she does dialysis on Wednesday, Wednesday and Wednesday from 12:00-4:00. SW received phone call from [facility]. They have accepted pt for admission if [...] if pt is going to go to [facility]. ASSESSMENT/CHART REVIEW:73 yr old femalewith a history of ESRD on hemodialysis, hypertens ion, type 2 diabetes, hypothyroidism,chronic anemia,hyperlipidemia, hx of stroke [facility] noted on MRI concerning fo r osteomyelitis. SW met with pt's sister, Yina, and her cousin, Keri, who were waiting in pt's room while s he was in dialysis. SW will need to follow up with pt re: d/c planning. Pt's sister and cousin related that pt mostly lives at Yina's house outside [place], [place], but does not like to be tied down because she enjoys attending [place] festivals and many events. She does at [facility] dialysis weekly. Pt has a vehicle and is very independent. D/C TRANSPORT:Pt can be transported home or to [facility] via family in a private car. They will need gas cards to help pay for transportation. BARRIERS TO D/C:none CONTACTS: Yina La: sister India Tilley: sister [place] Transportation: [place] Transportation fax: [phone] [facility]: [phone] fax: [phone] [facility] [phone] [facility]: [phone] [facility]: [phone] [facility] FAX: [phone] Nan Cheney MSW - 03/30/2019 12:57 PM PDTSOCIAL WORK D/C PLAN:SNF: [facility] NEXT STEPS:Await bed availability INTERVENTION: SW called and left message for Mell at [facility] regarding if they are willing to accept pt and to discuss transportation to and from dialysis. SW also called and left message for [place] Medicaid transportation regarding if they can transp ort pt to and from dialysis upon DC. Pt states that she goes to [facility] in [place], [place] on Wed, Wed, and Fridays from 12:00-4:00 pm. SW left message with [facility] regarding if there was any way that they may also be able to help with transportation to and from dialysis while pt is in rehab and to ensure that pt still has her chair time scheduled. [facility] is only open M on, Wednesday and Wednesday. ASSESSMENT/CHART REVIEW:73 yr old femalewith a history of ESRD on hemodialysis, hypertens ion, type 2 diabetes, hypothyroidism,chronic anemia,hyperlipidemia, hx of stroke [facility] of [facility] lesion noted on MRI concerning fo r osteomyelitis. ROBIN met with pt's sister, Yina, and her cousin, Keri, who were waiting in pt's room while s he was in dialysis. SW will need to follow up with pt re: d/c planning. Pt's sister and cousin related that pt mostly lives at Yina's house outside [place], [place], but does not like to be tied down because she enjoys attending [place] festivals and many events. She does at [facility] weekly. Pt has a vehicle and is very independent. D/C TRANSPORT:tbd BARRIERS TO D/C:none CONTACTS: Yina La: sister India Tilley: sister [place] Transportation: [place] Transportation fax: [phone] [facility]: [phone] fax: [phone] [facility] [phone] [facility]: [phone] signed by JENNIFER Xavier at 03/30 1:09 PM PDTRaMichelle bell DO - 03/30/2019 11:09 AM PDTFormatting of [...] with a history of stroke transferred from [facility] [place] for evaluation of T11-T12 lesion noted on [...] awaiting to hear from [facility], in [place] regarding possible acceptance. She is improved [...] dialysis patient - has OP clinic in [place] already ---> will need SW to help [...] SNF - awaiting to hear back from [facility], in [place], [place] regarding possible acceptance there. Medically ready [...] fevers or chills. Objective: Vital Signs 03/28 0700 - 03/29 0659 03/29 0700 - 03/30 0659 07/18 0700 - 03/30 1110 Most Rec ent Temp [...] Single Lumen 03/24/19 2143 Left Lateral Forearm ahqg-uaa-kbxhmy daniel ter system 20 gauge;1 1/4 in [...] - 99 mg/dL Final Comment: Performed by [facility] [address] [place] [address] 03/29/2019 21:09 157 (H) 65 - 99 mg/dL Final Comment: Performed by [facility] [address] [place] [address] 03/29/2019 18:50 91 65 - 99 mg/dL Final Comment: Performed by [facility] [address] [place] [address] 12/09/2018 18:05 113 (H) 70 - 109 [...] this chart may have been created with [employer] voice recognition software. Occasi onal wrong-word or sound-alike substitutions may have occurred due to the inherent mckeon itations of voice recognition software. Please read the chart carefully and recognize, using context, where these substitutions have occurred rgJesus mcdonald MD - 03/30/2019 7:15 AM PDT . Infectious Diseases Progress Note Pt. Name/Age/: Estefani Tilley 73 y.o. 1945 Med. Record Number: [id number] Date of admission: 03/24/2019 Patient admitted with [...] Electronically signed by: Jesus Whitney, 03/30/2019 7:15 [facility] Mary Wade RN - 03/30/2019 6:16 AM PDT 5N Nursing Handoff Note Room # [facility]/501-02 ISO: None Full Code Item for assessment: [...] intention has depression wishful of Monitoring Requirements [facility] Suicide Policy [facility] Suicide Risk/Telesitter Screening Utilizing this rating scale, [...] 03/29/2019 4:18 PM PDTSOCIAL WORK D/C PLAN:SNF: [facility] NEXT STEPS:Await bed availability INTERVENTION: SW called and spoke with admissions person at [facility], they are still discussing pt's case. [...] anemia,hyperlipidemia, hx of stroke [facility] lesion noted on MRI concerning fo r osteomyelitis. SW met with pt's sister, Yina, and her cousin, Keir, who were waiting in pt's room while s he was in dialysis. SW will need to follow up with pt re: d/c planning. Pt's sister and cousin related that pt mostly lives at Yina's house outside [place], [place], but does not like to be tied down because she enjoys attending [place] festivals and many events. She does at [facility] weekly. Pt has a vehicle and is very independent. D/C TRANSPORT:tbd BARRIERS TO D/C:none CONTACTS: Yina La: sister India Tilley: sister [place] Medicaid Transportation: [facility]: [phone] fax: [phone] [facility] [phone] signed by JENNIFER Contreras at 03/29/2019 4:20 PM PDTHsu, Randy Nunez MD - 03/29/2019 12:32 PM PDT [facility] INPATIENT ROUNDING NOTE Date of Service: 03/29/2019 Rounding Physician: Randy Corrigan MD Patient Name: Estefani Tilley : 1945 Medical Record: [id number] Hospital Summary: Estefani Tilley is a 73 y.o. female with a PMHx of ESRD, HTN, Dm type 2, hypothyroidism, HLd, CVA who is under the care of Dr Muñoz at [facility] who dialyzes MWF admitted with [...] with a history of stroke transferred from [facility] [place] for evaluation of T11-T12 lesion noted on [...] awaiting to hear from [facility], in [place] regarding possible acceptance. May be able [...] dialysis patient - has OP clinic in [place] already ---> will need SW to help [...] SNF - awaiting to hear back from [facility], in [place], [place] regarding possible acceptance there. Could possibly [...] Single Lumen 03/24/19 2143 Left Lateral Forearm esbq-lae-peikhw daniel ter system 20 gauge;1 1/4 in [...] - 99 mg/dL Final Comment: Performed by [facility] [address] [place] [address] 03/28/2019 21:06 144 (H) 65 - 99 mg/dL Final Comment: Performed by [facility] [address] [place] [address] 03/28/2019 11:22 119 (H) 65 - 99 mg/dL Final Comment: Performed by [facility] [address] [place] [address] 12/09/2018 18:05 113 (H) 70 - 109 [...] this chart may have been created with [employer] voice recognition software. Occasi onal wrong-word or [...] signed by: Zari Mitchell, PharmD 03/29/2019 9:36 esus Whitney MD - 03/29/2019 7:35 A M PDT Infectious Diseases Progress Note Pt. Name/Age/: Estefani Tilley 73 y.o. 1945 Med. Record Number: [id number] Date of admission: 03/24/2019 Patient admitted with [...] Electronically signed by: Jesus Whitney, 03/29/2019 7:35 [facility] zech, Carolina Kearney RN - 03/28/2019 7:08 PM [id number] - Report called to Sanjuanita GONZALEZ. Pt's belongings . I pad and I phone w/ chargers as well as pt's purse, and shoes, and shirt and pants all sent with her to [address] [place] [address]. Pt had been sitting up eating dinner. Ate much better this evening. Ate 40% of h er dinner. Drank 1/2 of her boost. Doing better with much encouragement. Pt appeared sad tod ay, and I spent a lot of time visiting with her. After some time she started crying and darshan ed that she lost her 50 year old daughter this year. She said she of an aneurysm. Pt do ing much better this evening. Smiled off and on and thanked me for time spent with her. Noti fied Paramjit RN of pt's recent loss. Transferred at 1900 via with all her belongings. Nelda ctronically signed by: Carolina Jessica RN 03/28/2019 19:23 RafterMichelle D O - 03/28/2019 3:55 PM PDT Patient: Estefani Tilley Date of : 1945 Admit Date: 03/24/2019 Date of Service: 03/28/2019 PCP: Francisca Womack PA-C Hospital Day: Hospital Day: 5 Hospital Course: 73-year-old female with history of ESRD on hemodialysis, hypertension, type 2 diabetes, hyp othyroidism, chronic anemia, hyperlipidemia with a history of stroke transferred from [facility] for evaluation of T11-T12 lesion noted on MRI concerning for osteomyeliti s. Infectious disease consulted. She underwent CT guided aspiration from her thoracic spine on 03/24, Gram stain and cultures negative. Patient started on empiric vancomycin and cefepi la with plans to complete 6 weeks of [...] Single Lumen 03/24/19 2143 Left Lateral Forearm rmbh-udn-fpovnn daniel ter system 20 gauge;1 1/4 in [...] - 99 mg/dL Final Comment: Performed by [facility] [address] [place] [address] 03/28/2019 07:09 75 65 - 99 mg/dL Final Comment: Performed by [facility] [address] [place] [address] 03/27/2019 20:38 109 (H) 65 - 99 mg/dL Final Comment: Performed by [facility] [address] [place] [address] 12/09/2018 18:05 113 (H) 70 - 109 [...] this chart may have been created with [employer] voice recognition software. Occasi onal wrong-word or sound-alike substitutions may have occurred due to the inherent mckeon itations of voice recognition software. Please read the chart carefully and recognize, using context, where these substitutions have occurred Cordell Mcgarry LICSW - 03/28/2019 2:57 PM PDTSOCIAL WORK D/C PLAN: SNF: [facility] NEXT STEPS: Await bed availability INTERVENTION: On-going dc planning. Rec'd update from [facility]. They confirm they have r ec'd clinical notes and are currently reviewing. SW will follow. ASSESSMENT/CHART REVIEW:73 yr old femalewith a history of ESRD on hemodialysis, hypertens ion, type 2 diabetes, hypothyroidism,chronic anemia,hyperlipidemia, hx of stroke [facility] lesion noted on MRI concerning fo r osteomyelitis. SW met with pt's sister, Yina, and her cousin, Keri, who were waiting in pt's room while s he was in dialysis. SW will need to follow up with pt re: d/c planning. Pt's sister and co usin related that pt mostly lives at Yina's house outside [place], [place], but does not like to be tied down because she enjoys attending [place] festivals and many events. She does atten d dialysis weekly. Pt has a vehicle and is very independent. D/C TRANSPORT: tbd BARRIERS TO D/C: none CONTACTS: Yina La: sister India Tilley: sister [facility]: [phone] fax: [phone] [facility] [phone] illMario Alberto north MD - 03/28/2019 7:34 AM PDTFormatting of this note might be different from the maynor [facility] Infectious Diseases Progress Note Pt. Name/Age/: Estefani Tilley 73 y.o. 1945 Med. Record Number: [id number] Date of admission: 03/24/2019 Patient admitted with [...] Electronically signed by: Carlos Jansen, 03/28/2019 7:34 [facility] Katey Solis MD - 03/27/2019 8:58 PM PDT Patient: Estefani Tilley Date of : 1945 Admit Date: 03/24/2019 Date of Service: 03/27/2019 PCP: Francisca Womack PA-C Hospital Day: Hospital Day: 4 Hospital Course: 73-year-old female with history of ESRD on hemodialysis, hypertension, type 2 diabetes, hyp othyroidism, chronic anemia, hyperlipidemia with a history of stroke transferred from [facility] for evaluation of T11-T12 lesion noted on MRI concerning for osteomyeliti s. Infectious disease consulted. Status post aspiration from her thoracic spine, Gram stain negative, cultures pending. Rosemary ent started on empiric vancomycin and cefepime. Will need 6 weeks of IV antibiotics. Discussed with nephrology, recommend placement of Tillman catheter instead of PICC line for snf IV antibiotics. Nephrology following for maintenance hemodialysis. [...] Tillman catheter instead of PICC line for snf IV antibiotics. Pain management -trial of lidocaine [...] Line Peripheral IV Line - Single Lumen 03/24/192142 Left Lateral Forearm nozz-mtl-awnypr daniel ter system 20 gauge;1 09/16 in [...] - 99 mg/dL Final Comment: Performed by [facility] [place] [id number] 03/27/2019 13:58 82 65 - 99 mg/dL Final Comment: Performed by [facility] [place] [id number] 03/27/2019 06:39 83 65 - 99 mg/dL Final Comment: Performed by [facility] [place] [address] 12/09/2018 18:05 113 (H) 70 - 109 [...] this chart may have been created with [employer] voice recognition software. Occasi onal wrong-word or sound-alike substitutions may have occurred due to the inherent mckeon itations of voice recognition software. Please read the chart carefully and recognize, using context, where these substitutions have occurred Darlin Mcgarry, [facility] - 03/27/2019 3:17 PM PDTSOCIAL WORK D/C PLAN: SNF: [facility] NEXT STEPS: Await bed availability INTERVENTION: Rec'd call from Emili at [facility]. She states the contracted f acility near pt's home is [facility]. Spoke with pt and with sister India. Referral and (-) Pasrr sent to [facility]. Copy of Pasrr placed in light chart with request to file into jos rds. SW will follow. ASSESSMENT/CHART REVIEW:73 yr old femalewith a history of ESRD on hemodialysis, hypertens ion, type 2 diabetes, hypothyroidism,chronic anemia,hyperlipidemia, hx of stroke [facility] [place] noted on MRI concerning fo r osteomyelitis. SW met with pt's sister, Yina, and her cousin, Keri, who were waiting in pt's room while s he was in dialysis. SW will need to follow up with pt re: d/c planning. Pt's sister and co usin related that pt mostly lives at Yina's house outside [place], [place], but does not like to be tied down because she enjoys attending [place] festivals and many events. She does atten d dialysis weekly. Pt has a vehicle and is very independent. D/C TRANSPORT: tbd BARRIERS TO D/C: none CONTACTS: Yina La: sister India Tilley: sister [facility]: [phone] fax: [phone] [facility] [phone] Gregg Mcgarry [facility] - 03/27/2019 2:17 PM PDTFormatting of this note might be different from jerald more. SOCIAL WORK D/C PLAN: SNF NEXT STEPS: SW to follow up with pt regarding SNF preference INTERVENTION: On-going dc planning, chart reviewed and met with pt. Discussed need of snf IV abx, Discussed options. Provided list of [...] pt mostly lives at Yina's house outside [place], [place], but does not like to be tied down because she enjoys attending [place] festivals and many events. She does atten d dialysis weekly. Pt has a vehicle and is very independent. ASSESSMENT/CHART REVIEW:73 yr old femalewith a history of ESRD on hemodialysis, hypertens ion, type 2 diabetes, hypothyroidism,chronic anemia,hyperlipidemia, hx of stroke [facility] [place] lesion noted on MRI concerning fo r osteomyelitis. D/C TRANSPORT: tbd BARRIERS TO D/C: none CONTACTS: Yina La Sister [phone] India Tilley Sister [phone] Irish Cadet, Rn Surgery [facility] - 03/27/2019 1:33 PM PDTFormatting of this [...] mg/dL (H)). Lab Results Component Value Date/Time SUNDEEPNDOM 17.7 03/27/2019 05:12 I/O last 3 completed shifts: In: 360 [P.O.:360] Out: 1 [Urine:1] I/O this shift: In: - Out: 2000 Micro/Cultures: BCx - NGTD, BiopsyCx - NGTD Per P&T-approved Vancomycin Protocol Electronically signed by: Aimee Carroll, Rn Surgery [facility] 03/27/2019 13:33Electronically si gned by Ray Joel, PharmD at 03/27/2019 2:04 PM PDT Associated attestation - Ray Joel PharmD - 03/27/2019 2:04 PM PDTI reviewed and agr ee with the assessment and plan. Ray Joel, PharmD 03/27/2019 14:04 Corrigan, Randy Nunez MD - 03/27/2019 10:52 AM PDT [facility] INPATIENT ROUNDING NOTE Date of Service: 03/27/2019 Rounding Physician: Randy Corrigan MD Patient Name: Estefani Tilley : 1945 Medical Record: [id number] Hospital Summary: Estefani Tilley is a 73 y.o. female with a PMHx of ESRD, HTN, Dm type 2, hypothyroidism, HLd, CVA who is under the care of Dr Muñoz at [facility] who dialyzes MWF admitted with [...] and thrill Recent Labs Lab 03/26/19 0411 03/25/1991703/24/19517 WBC 4.57 5.34 5.46 HGB 10.2* 10.2* 9.9* HCT 32.1* 31.5* 31.3* PLT 179 192 177 Recent Labs Lab 03/26/19 1144 03/26/19 0411 03/25/1991703/24/1918 03/23/19 1903 NA -- 133* 135 141 137 K -- 4.3 5.0 4.4 4.2 CL -- 99 101 105 101 CO2 -- 27 28 27 30 BUN -- CREA -- 3.82* 3.01* 4.02* 3.78* CALCIUM [...] Tilley 73 y.o. 1945 Med. Record Number: [id number] Date of admission: 03/24/2019 Patient admitted with [...] Electronically signed by: Carlos Jansen, 03/27/2019 7:10 [facility] Katey Solis MD - 03/26/2019 5:40 PM PDT Patient: Estefani Tilley Date of : 1945 Admit Date: 03/24/2019 Date of Service: 03/26/2019 PCP: Francisca Womack PA-C Hospital Day: Hospital Day: 3 Hospital Course: 73-year-old female with history of ESRD on hemodialysis, hypertension, type 2 diabetes, hyp othyroidism, chronic anemia, hyperlipidemia with a history of stroke transferred from [facility] at [place] for evaluation of T11-T12 lesion noted on [...] Single Lumen 03/24/19 2143 Left Lateral Forearm qrle-dks-zrxjjg daniel ter system 20 gauge;1 1/4 in [...] - 99 mg/dL Final Comment: Performed by [address] [facility] [place] [address] 03/26/2019 06:49 116 (H) 65 - 99 mg/dL Final Comment: Performed by [address] [facility] [place] [place] [address] 03/25/2019 20:37 110 (H) 65 - 99 mg/dL Final Comment: Performed by [address] [facility] [place] [address] 12/09/2018 18:05 113 (H) 70 - 109 [...] this chart may have been created with [employer] voice recognition software. Occasi onal wrong-word or sound-alike substitutions may have occurred due to the inherent mckeon itations of voice recognition software. Please read the chart carefully and recognize, using context, where these substitutions have occurred Jose Gamez, [facility] - 03/26/2019 10:52 AM PDTFormatting of this note might be different from the [facility] Pharmacy Progress Note VANCOMYCIN PER PHARMACY PROTOCOL: [...] P&T-approved Vancomycin Protocol Electronically signed by: Jose Menard Rn Surgery I[facility] 03/26/2019 10:52 su, Randy Nunez MD - 03/26/2019 1 0:38 AM PDT [facility] INPATIENT ROUNDING NOTE Date of Service: 03/26/2019 Rounding Physician: Randy Corrigan MD Patient Name: Estefani Tilley : 1945 Medical Record: [id number] Hospital Summary: Estefani Tilley is a 73 y.o. female with a PMHx of ESRD, HTN, Dm type 2, hypothyroidism, HLd, CVA who is under the care of Dr Muñoz at [facility] who dialyzes MWF admitted with possible osteo disccitis t11/t12 ASSESSMENT AND PLAN 1. ESRD/HD dependent Access is LUE AVF working well No indications for HD today Usually dialyzes MWF at [facility] Hd tommorow 2. Anemia Hg [...] and thrill Recent Labs Lab 03/26/19 0411 03/25/1918 03/24/19 0518 WBC 4.57 5.34 5.46 HGB 10.2* 10.2* 9.9* HCT 32.1* 31.5* 31.3* PLT 179 192 177 Recent Labs Lab 03/26/1941003/25/1918 03/24/1918 03/23/19 1903 NA 133* 135 141 137 [...] Tilley 73 y.o. 1945 Med. Record Number: [id number] Date of admission: 03/24/2019 Patient admitted with [...] Electronically signed by: Carlos Jansen, 03/26/2019 8:03 [facility] Katey Solis MD - 03/25/2019 3:50 PM PDT Patient: Estefani Tilley Date of : 1945 Admit Date: 03/24/2019 Date of Service: 03/25/2019 PCP: Francisca Womack PA-C Hospital Day: Hospital Day: 2 Hospital Course: 73-year-old female with history of ESRD on hemodialysis, hypertension, type 2 diabetes, hyp othyroidism, chronic anemia, hyperlipidemia with a history of stroke transferred from [facility] [place] for evaluation of T11-T12 lesion noted on [...] Single Lumen 03/24/19 2143 Left Lateral Forearm dwue-wip-grmqif daniel ter system 20 gauge;1 1/4 in [...] - 99 mg/dL Final Comment: Performed by [facility] [address] [place] [id number] 03/25/2019 06:52 107 (H) 65 - 99 mg/dL Final Comment: Performed by [facility] [address] [place] [address] 03/24/2019 20:11 112 (H) 65 - 99 mg/dL Final Comment: Performed by [facility] [address] [place] [id number] 12/09/2018 18:05 113 (H) 70 - 109 [...] this chart may have been created with [employer] voice recognition software. Occasi onal wrong-word or sound-alike substitutions may have occurred due to the inherent mckeon itations of voice recognition software. Please read the chart carefully and recognize, using context, where these substitutions have occurred su, Randy Nunez MD - 0 03/25/2019 1:47 PM PDT [facility] INPATIENT ROUNDING NOTE Date of Service: 03/25/2019 Rounding Physician: Randy Corrigan MD Patient Name: Estefani Tilley : 1945 Medical Record: [id number] Hospital Summary: Estefani Tilley is a 73 y.o. female with a PMHx of ESRD, HTN, Dm type 2, hypothyroidism, HLd, CVA who is under the care of Dr Muñoz at [facility] who dialyzes MWF admitted with possible osteo disccitis t11/t12 ASSESSMENT AND PLAN 1. ESRD/HD dependent Access is LUE AVF working well No indications for HD today Usually dialyzes MWF at [facility] She is below her EDW [...] good bruit and thrill Recent Labs Lab 03/25/1918 03/24/1918 03/23/19 1835 WBC 5.34 5.46 5.8 HGB 10.2* 9.9* 11.0* HCT 31.5* 31.3* 34.7 PLT 192 177 220 Recent Labs Lab 03/25/1991703/24/1951703/23/19 1903 NA 135 141 137 K 5.0 [...] signed by: Trace Corrigan MD, 03/25/2019, 13:47 ettler, Nan Jimenez, PRODUCTION SUPERINTENDENT - 03/25/2019 10:49 AM PDT SOCIAL WORK [...] pt mostly lives at Yina's house outside [facility], [place], but does not like to be tied down because she enjoys attending [place] festivals and many events. She does atten d dialysis weekly. Pt has a vehicle and is very independent. ASSESSMENT/CHART REVIEW:73 yr old femalewith a history of ESRD on hemodialysis, hypertens ion, type 2 diabetes, hypothyroidism,chronic anemia,hyperlipidemia, hx of stroke [facility] lesion noted on MRI concerning fo r osteomyelitis. D/C TRANSPORT: tbd BARRIERS TO D/C: none CONTACTS: Yina La Sister [phone] India Tilley Sister [phone] illCarlos north M D - 03/25/2019 8:34 AM PDT Infectious Diseases Progress Note Pt. Name/Age/: Estefani Jimenez Jarek 73 y.o. 1945 Med. Record Number: [id number] Date of admission: 03/24/2019 Patient admitted with [...] Electronically signed by: Carlos Jansen, 03/25/2019 8:34 [facility] Jose Gamez, Rn Surgery Icu - 03/24/2019 10:46 PM PDTFormatting of this note might be different from the [facility]. Pharmacy Progress Note VANCOMYCIN PER PHARMACY PROTOCOL: [...] 4.02 mg/dL (H)). No results found for: MILADYS SHANE I/O last 3 completed shifts: In: 800 [P.O.:300; I.V.:500] Out: 1428 No intake/output data recorded. Micro/Cultures: BCx - pending, BiopsyCx - pending Per P&T-approved Vancomycin Protocol Electronically signed by: Jose Menard, Rn Surgery [facility] 03/24/2019 22:46 onrad, Gladys Roman, PRODUCTION SUPERINTENDENT - 9 4:53 PM PDT SOCIAL WORK [...] pt mostly lives at Yina's house outside [place], [place], but do es not like to be tied down because she enjoys attending [place] festivals and many events. She does attend dialysis weekly. Pt has a vehicle and is very independent. ASSESSMENT/CHART REVIEW:73 yr old female with a history of ESRD on hemodialysis, hypertensi on, type 2 diabetes, hypothyroidism, chronic anemia, hyperlipidemia, hx of stroke transferre d from [facility] for evaluation of T11-T12 lesion noted on MRI concerning for ost eomyelitis. D/C TRANSPORT: tbd BARRIERS TO D/C: none CONTACTS: Yina La Sister [phone] India Tilley Sister [phone] Katey Solis MD - 03/24/2019 3:53 PM PDTPatient seen and examined. Chart reviewed. Briefly, 73-year-old female with history of ESRD on hemodialysis, hypertension, type 2 diab etes, hypothyroidism, chronic anemia, hyperlipidemia with a history of stroke transferred fr [facility] at [place] for evaluation of T11-T12 lesion noted on [...] not have any p raza, consider antidepressants. 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 2. Target Trough: 15-20 mcg/ml 3. [...] Procedure Component Value Units Date/Time Culture, Blood [[id number]] Collected: 03/23/192332 Order Status: Sent Lab Status: In process Updated: 03/23/192348 Specimen: Blood Culture, Blood [[id number]] Collected: 03/23/192254 Order Status: Sent Lab Status: [...] anemia, hyperlipidemia, hx of stroke transferred from [facility] for evaluation of T11-T12 lesion noted on [...] M, w and F HD sessions in [place] Last HD session Wednesday Will call [...] stroke on aspirin , pt lives in [place], [place]. She presented to [facility] yesterday complaining of 6 days [...] the spine for further evaluation. Answered to [place] for IR procedure. Patient reports that she [...] Diabetes (HCC) Heart disease Hemodialysis patient (HCC) wed- History of blood clots Hypercholesteremia Hypertension Hypothyroidism Renal failure Seasonal allergies Past Surgical History: Procedure Laterality Date APPENDECTOMY EYE SURGERY 2009 HIP SURGERY Right 12/04/2018 Procedure: ORIF HIP W/CANNULATED SCREWS; Surgeon: Scott Koroma MD; Location: [facility] MAIN OR HYSTERECTOMY MASTECTOMY 2006 left ear NOSE SURGERY 2009 REMOVAL TUNNELED CATHETER Right 04/04/[address] Stepehnson SHUNT PLACEMENT/INSERTION N/A 11/08/2017 Procedure: Tunneled Hemodialysis Catheter Placement; Surgeon: Nora Leo MD; Location : [facility] MAIN OR SHUNT PLACEMENT/INSERTION Right 02/04/2018 Procedure: INSERTION SHUNT HEMODIALYSIS W/ PERMACATH; Surgeon: Heather Navarro MD; L ocation: [facility] MAIN OR VEIN SURGERY Right 01/04/2018 Procedure: Right Transposed Basilic Vein to Proximal Radial Artery; Surgeon: Santos Stephenson MD, FACS; Location: [facility] MAIN OR Social History Socioeconomic History Marital [...] on file COMMENTS- Never smoker, lives in [place], [place]. Reports living in her car most [...] 1 tablet by mouth Daily. Taking Historical MD Jesica Cholecalciferol 4000 units TABS Take 4,000 Units by mouth Daily. Taking Gopi kearney DO doxercalciferol (HECTOROL) 1 MCG CAPS Take 0.5 mg by mouth Three times a week. Taking His torical ProviderMD epoetin karthik (EPOGEN, PROCRIT) 10,000 units/mL injection Inject 4,000 Units under the skin Three times a week. Taking Historical ProviderMD furosemide (LASIX) 80 mg tablet Take 1 tablet by mouth Daily. Taking 50 tablet Edison avila MD hydrophilic ointment Apply 1 Application topically Daily. For dry skin Simran avila MD insulin glargine (LANTUS SOLOSTAR) 100 units/mL injection (pen) Inject 12 Units under the skin nightly. Not Taking Historical MD Jesica Insulin Pen Needle 31G X 5 MM MISC by Does not apply route. Historical ProviderMD labetalol (NORMODYNE) 200 mg tablet Take 1 tablet by mouth 2 times daily. Patient not uziel ng: Reported on 01/15/2019 100 tablet Edison Keys MD Lancets MISC by Does not apply route. Historical ProviderMD levothyroxine (SYNTHROID, LEVOTHROID) 75 MCG tablet Take 75 mcg by mouth every morning (be fore breakfast). Historical ProviderMD lidocaine-prilocaine (EMLA) cream Apply 1 [...] changes. Historical Provider, Physical: Vital Signs 03/21 0700 - 03/22 0659 03/22 07 - 03/23 0659 03/23 07 - 03/24 0202 Most Rec ent Temp [...] or hilar lymphadenopathy. LUNGS:There is a smal [id number]-rl-[id number] layering left pleural effusion. There is atelectasis [...] this chart may have been created with [employer] voice recognition software. Occasi onal wrong-word or [...] documented in this e ncounter Consult Notes CorriganRandy MD - 03/24/2019 9:31 AM PDT [facility] Nephrology Consultation Patient Name: Estefani Tilley : 1945 Medical Record: [id number] DATE OF SERVICE: 03/24/2019 CONSULTING PHYSICIAN: Trace Nunez MD REFERRING PHYSICIAN: Dr Erlinda Simental REASON FOR CONSULTATION: ESRD HD management HISTORY OF PRESENT ILLNESS Estefani Tilley is a 73 y.o. female who has a history of ESRD, HTN, Dm type 2, hypothyroi dism, HLd, CVA who is under the care of Dr Muñoz at [facility] who dialyzes MWF. Her usually [...] Date Anemia Arthritis Back pain Breast cancer ([facility]) s/p left mastectomy in 2004, s/p chemotherapy Cancer (HCC) Diabetes ([facility]) Heart disease Hemodialysis patient ([facility]) wed-wed-wed History of blood clots Hypercholesteremia Hypertension Hypothyroidism Renal failure Seasonal allergies Stroke (cerebrum) ([facility]) CURRENT MEDICATIONS Scheduled Meds: aspirin 81 mg [...] Min: 96 % Max: 99 % 03/23 0701 - 03/24 0700 In: 550 [P.O.:300; I.V.:250] Out: - Physical Exam AOX3 JVP not elevated Chest is clear CVS RRR Abdomen Nt Ext no edema LUE AVF with good thrill and bruit Skin no rashes LABORATORY DATA: Recent Labs Lab 03/24/19 0518 03/23/19 1835 WBC 5.46 5.8 HGB 9.9* 11.0* HCT 31.3* 34.7 PLT 177 220 Recent Labs Lab 03/24/19 0518 03/23/19 1903 NA 141 137 K 4.4 4.2 [...] effort i s made to edit content, mannequin decorator errors may occur. If there are any [...] complicated medical history as outlined below, n zackarye patient is diabetic and is on hemodialysis [...] her local facility and then transferred to [place] in [place] . CT scan was suggestive of T11-T12 [...] Hypothyroidism Renal failure Seasonal allergies Stroke (cerebrum) (HCC) Past Surgical History: Procedure Laterality Date APPENDECTOMY EYE SURGERY 2009 HIP SURGERY Right 12/04/2018 Procedure: ORIF HIP W/CANNULATED SCREWS; Surgeon: Scott Koroma MD; Location: [facility] MAIN OR HYSTERECTOMY MASTECTOMY 2006 left ear NOSE SURGERY 2009 REMOVAL TUNNELED CATHETER Right 04/04/[address] Stephenson SHUNT PLACEMENT/INSERTION N/A 11/08/2017 Procedure: Tunneled Hemodialysis Catheter Placement; Surgeon: Nora Leo MD; Location : [facility] MAIN OR SHUNT PLACEMENT/INSERTION Right 02/04/2018 Procedure: INSERTION SHUNT HEMODIALYSIS W/ PERMACATH; Surgeon: Heather Navarro MD; L ocation: [facility] MAIN OR VEIN SURGERY Right 01/04/2018 Procedure: Right Transposed Basilic Vein to Proximal Radial Artery; Surgeon: Santos Stephenson MD, FACS; Location: [facility] MAIN OR Patient Active Problem List [...] Ref Range Procalcitonin 0.23 <=0.50 ng/mL Comment Basic Metabolic Panel Result Value Ref Range [...] or hilar lymphadenopathy. LUNGS:There is a smal m-uc-clvuyupz layering left pleural effusion. There is atelectasis [...] this en counter Miscellaneous Notes Plan of Tiffany Gaston RD - 03/31/2019 4:08 PM PDT Clinical Nutrition: Intake Analysis Recommendations to Care Team: 1. Consider appetite stimulate Assessment: Today's review of meals: Breakfast and Lunch: 117calories and 13 g protein. ESTIMATED NEEDS: Weight Used For Calculations: 63.6 kg (140 lb 3.4 oz) Energy Calorie Requirements: 8773-0429(REE x 1.2-1.4) Range Gm Protein (gm): 55-85 [...] labs, hydration status a nd stooling patterns Tiffanycharlie Rosarioalfred, , RD [phone] DATE/TIME: 03/31/2019 16:12 lan of Genevieve Gama RN - 03/31/2019 2:57 PM PDTShift Summary: Pt off the floor most of the day for HD. REY fistula, R IJ CVC, flushing w/o difficulty. A& O, up with 1 assist. Pt to d/c home to [place] this afternoon after [place] teach es family about IV abx administration. Receives oxycodone 5-10mg for chronic back pain. Campbell es N/V/D. VSS. ACHS CS WNL. lan of Calli Delgado, Absorption Operator-Clinical - 03/31/2019 1:36 PM PDTFormattin g of this note might be different from the original. HEAT PLANT SPECIALIST MENU ASSISTANCE FOLLOW-UP NOTE INTERVENTIONS: 1. Continue [...] as needed. Electronically signed by: Lorna Lima Tech-Clinical 03/31/2019 13:37 NF Transfer - [facility], Michelle Taylor DO - 03/31/2019 10:26 AM PDT GROUP HOME FACILITY TRANSFER ORDERS Patient Name: Estefani iTlley Patient : 1945 Gender: female Date of Admission: 03/24/2019 Date of Discharge: 03/31/2019 Admitting Provider: Erlinda Simon MD Discharging Provider: Michelle Lopez DO Consultants: Nephrology, ID PCP: [facility] transferring to: [facility] Provider after transfer: Facility Provider CODE STATUS: [x] Attempt CPR [] Do not resuscitate If patient is pulseless and not breathing, RN/MANAGER BEAUTY may pronounce . Advanced Directives included: [] [...] INFLUENZA QUADR W/PRES (PED/ADOL/ADULT) MULTIDOSE 06/27/2014 INFLUENZA, K1X8-04, UNSPECIFIED 08/28/2009 INFLUENZA, UNSPECIFIED FORMULATION 06/20/2013 PNEUMOCOCCAL CONJUGATE 13-VALENT (PCV13) 02/12/2016 PNEUMOCOCCAL POLYSACCHARIDE 23-VALENT (PPSV23) 07/30/2011 TD PF (2 LF TETANUS) (ADOL/ADULT) 06/22/2002 TDAP, (ADOL/ADULT) 06/17/2010, 06/17/2010 ZOSTER, 1 DOSE (ZOSTAVAX) 01/28/2012 Diet: [] As tolerated CLAY BURNER may upgrade or downgrade diet as condition Indicates. [] RN may downgrade diet as indicated. Type: [x] Continue current diet of: Diet and Supplements Diet Diet general; Effective Now Number of Occurrences: Until Specified Order Questions: Type Diet general [] Other: Consistency/Precautions: [] Whole [] Thin Liquids [] Cut-up [] Randolph Thick [] Advanced Chopped [] Honey Thickened [] Chopped [] Advanced Ground [] 1:1 feedings [] Ground/Pureed [] Other: Tube Feedings: [] PEG [] GT [] JT [] NGT [] Formula type: (Rod Tape Operator may change/substitute if indicated). [] Continuous Rate: [...] [] OT Evaluation & Management for: [] CLAY BURNER Evaluation &Management for: [] Other: Wound/Skin Care: [...] effect Follow up appointments and consultations: Date/Time: Dr. Date/Time I have advised this patient that [...] of Unknown Etiology Start: 04/01/2019 By: Michelle Lopez, DO Quant: 33 each gabapentin 100 mg capsule Take 1 capsule by mouth Daily. aka: NEURONTIN By: Michelle Lopez DO Quant: 90 capsule gabapentin 300 mg capsule Take 1 capsule by mouth nightly. aka: NEURONTIN By: Michelle Lopez, DO Quant: 90 capsule hydrALAZINE 25 mg tablet Take 1 tablet by mouth 2 times daily. aka: APRESOLINE By: Michelle Lopez DO Quant: 120 tablet NIFEdipine 90 mg ER tablet Take 1 tablet by mouth Daily. aka: PROCARDIA XL By: Michelle Lopez, DO Quant: 30 tablet oxyCODONE 5 mg tablet Take 1 tablet by mouth every 4 hours as needed for Pain. aka: ROXICODONE By: Michelle Lopez, DO Quant: 40 tablet probiotic capsule Take 1 capsule by mouth 2 times daily for 34 days. By: Michelle Lopez, Quant: 68 capsule vancomycin in sodium chloride [...] 4,000 Units by mouth Daily. By: Gopi Muñoz, epoetin karthik 10,000 units/mL injection Inject 4,000 [...] tablet by mouth Daily. aka: COZAAR By: Goip Muñoz DO montelukast 10 mg tablet Take 10 mg by mouth nightly. For asthma or allergies aka: SINGULAIR olopatadine 0.1% ophthalmic solution Place 1-2 drops into both eyes 2 times daily. aka: PATANOL ondansetron 4 mg tablet Take 1 tablet by mouth every 6 hours as needed for Nausea. aka: RADHA By: Scott Koroma MD Quant: 20 tablet pantoprazole 40 mg tablet Take 40 mg by mouth every morning (before breakfast). aka: PROTONIX Discontinued Medications insulin glargine 100 units/mL injection (pen) aka: Michelle ESCALANTE, DO, certify that post hospital long term care is medically neces shar on a continuing basis for any of the conditions for which he/she received care during t his hospitalization. Check one: [x] Skilled [] Intermediate Additional Orders/Instructions: Physician's signature: 03/31/2019 10:26 [facility] USE ONLY: [] Admitting orders verbally reviewed with Admitting Physician, modified where appropriate, and approved. Verbal Order from Date: Time: _ RN name: RN signature: [] Admitting orders reviewed, modified where appropriate, and approved. Physician's signature: Date: Time: lan of Care - Omari La, RN - 03/31/2019 3:30 AM PDT 5N [...] wishful of Monitoring Requirements [facility] Suicide Policy [facility] Suicide Risk/Telesitter Screening Utilizing this rating scale, [...] tomorrow, tunneled cath General diet AO IND [id number] signed by Rayna Ochoa RN at 03/30/2019 [...] intention has depression wishful of Monitoring Requirements [facility] Suicide Policy [facility] Suicide Risk/Telesitter Screening Utilizing this rating scale, [...] POCGLU 112 (H) 12/08/2018 0650 lan of Care - Tiffany Pickard, RD - 03/30/2019 9:56 AM PDTFormatting of this note might be different from t archana original. CLINICAL NUTRITION NUTRITION PROBLEMS: 1. Altered [...] of meals x 6 days. Will send [facility] cook hospital h meals. Nutrition History Obtained? No Nutrition [...] (based on estimated dry wt: 65.50 kg) [place] Body Weight: 63.64 kg Usual Body Weight: See [facility] weight hx; Weight History Per [facility] Records: 11/01/17: 87.20 k 04/04/18: 76.20 [...] hydration status a nd stooling patterns Tiffany Javier , RD [phone] DATE/TIME: 03/30/2019 10:22 lan of Care - [...] intention has depression wishful of Monitoring Requirements [facility] Suicide Policy [facility] Suicide Risk/Telesitter Screening Utilizing this rating scale, [...] POCGLU 112 (H) 12/08/2018 0650 lan of Care - B Luz dent, Absorption Operator-Clinical - 03/29/2019 4:33 PM PDTFormatting of this note m ight be different from the original. Clearance Coordinator Clinical Nutrition Follow-up Note Nutrition Interventions: Referred [...] patient did order dinner with ambassador. Luz Cueto NDTR DATE/TIME: 03/29/2019 16:34 lan of Maribell Liao RN - 03/29/2019 1:05 PM PDTP t resting in bed this shift. Rt arm fistula with a good pulse and thrill. Went to dialysis a t around 1200 today. Rt chest tunneled picc line for snf antibiotic therapy. Antibioti cs due after dialysis today. Electronically signed by: Maribell Ji RN 03/29/2019 13:07 lan of Huan Cai RN - 03/29/2019 4:14 AM PDT Nursing Handoff Note Room# 501/501-02 Isolation:None Code Status: Full Code Item for corporate director talent assessment Comments Shift Summary: Hx Breast CA, ESRD, [...] new orders (03/27/191947) Notification Time: 1630 (03/24/19 1631) ? I attest that I have reviewed and followed through with all orders applicable during my s hift. Frequency of vitals: Vitals: 03/28/19 1252 03/28/19 1924 03/28/19 2102 03/29/19 0000 BP: 141/66 143/69 166/75 158/69 Pulse: 69 73 70 60 Resp: 16 Temp: 36.1 C (96.9 F) 35.9 C (96.6 F) 36.4 C (97.5 F) TempSrc: Temporal Temporal Temporal SpO2: 99% 97% 98% 95% Weight: Height: No data found. lan of Melanie - Luz Farris, Absorption Operator-Clinical - 03/28/2019 4:44 PM PDT HEAT PLANT SPECIALIST CLINICAL NUTRITION NOTE NUTRITION PROBLEMS: 1. Inadequate oral nutrition intake related to inability to self feed as evidenced by rosemary marino requiring 1:1 feeding in the setting of [...] 3:05 PM PDT Melvin [place] OPERATIVE NOTE [facility] Pt. Name/Age/: Estefani Tilley 73 y.o. 1945 Med. Record Number: [id number] Date of admission: 03/24/2019 Date of Operation/Procedure: 03/28/2019 Preoperative Diagnosis: need for iv access Postoperative Diagnosis: Same Surgeon: Juan Choi MD, PGY-4 Welcome Wagon Hostess: None Anesthesia Provider(s): No anesthesia staff entered. [...] 03/28/2019, 15:05 edation Documentation - Sudhir Brandon Top Loader - 03/28/2019 2:58 PM PDTTunnelled Power Line [...] Room # 836/836-01 ISO: None Item for corporate director talent assessment Comments Shift Summary: Include Pain RX BP [...] Management: PVR/Strcath/incont Stool Occurrence: 1(pt reported) (03/27/19 5566) La st Bowel Movement: 03/21/19(Patient estimatied date) (03/27/19 061) Restraints TeleSitter or Bedside Sitter Discharge plan Patient/Family Goals [place]. C-SSRS Since you were last asked, have [...] intention has depression wishful of Monitoring Requirements [facility] Suicide Policy [facility] Suicide Risk/Telesitter Screening Utilizing this rating scale, [...] Room # 836/836-01 ISO: None Item for corporate director talent assessment Comments Shift Summary: Include Pain RX BP within ordered parameters? Stroke pt?:Depression screen Day 2 Took over patient care from 0473-3335. BP peaked and PRN was administered with no effect. Physician was notified and hydralazine was prescribed but held for BP w/in parameters. Neuro Pt. Showing confusion and requires redirection to stay on topic. Pt. Is A&Ox4 with m tentiple prompts. No other changes in sensation or [...] intention has depression wishful of Monitoring Requirements [facility] Suicide Policy [facility] Suicide Risk/Telesitter Screening Utilizing this rating scale, [...] Room # 836/836-01 ISO: None Item for corporate director talent assessment Comments Shift Summary: Include Pain RX BP within ordered parameters? Stroke pt?:Depression screen Day 2 Patient here for possible osteomyelitis of T11-T12. A/O X4. Cooperative with care today. Had dialysis from 7631-3837. AM medications held and given when pt [...] wishful of Monitoring Requirements [facility] Suicide Policy [facility] Suicide Risk/Telesitter Screening Utilizing this rating scale, [...] based on suicide observation protocols. lan of [facility] margarita, AMILCAR Em - 03/27/2019 2:13 PM PDTSW: [place]: lives out of town Plan: SNF la n of [facility], Radha Casper RN - 03/27/2019 1:17 AM PDT 8N & 8S Nursing Progress Note Patient Name: Estefani Tilley Room # 836/836-01 ISO: None Item for corporate director talent assessment Comments Shift Summary: Include Pain RX BP [...] wishful of Monitoring Requirements [facility] Suicide Policy [facility] Suicide Risk/Telesitter Screening Utilizing this rating scale, [...] based on suicide observation protocols. lan of Melanie - Johanna Rose RN - 03/26/2019 6:41 PM PDTAssumed care of pt from 5391-1619. Pt here wi th thoracic discitis, possible [...] Expected to have dialysis tomorrow. lan of Melanie - Dea Wiggins RN - 03/26/2019 2:5 0 PM PDT 8N & 8S Nursing Progress Note Patient Name: Estefani Tilley Room # 836/836-01 ISO: None Item for corporate director talent assessment Comments Shift Summary: Include Pain RX BP within ordered parameters? Stroke pt?:Depression screen Day 2 Assumed care from 7459-2698. 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 A/ox4. Pt uncooperative and argumentative with care. Hx of stroke, d iabetes, and ESRD. Pt. Receiving dialysis. Right arm fistula. Back pain managed with percoce t q4. Blood pressure elevated this morning. Labetalol PRN given per previous RN report. Ot herwise, vital signs stable. Neuro Intact NIH Stroke [...] intention has depression wishful of Monitoring Requirements [facility] Suicide Policy [facility] Suicide Risk/Telesitter Screening Utilizing this rating scale, [...] suicide observation protocols. lan of Care - Boo , Radha Casper RN - 03/26/2019 5:02 AM PDT 8N & 8S Nursing Progress Note Patient Name: Estefani Tilley Room # 836/836-01 ISO: None Item for corporate director talent assessment Comments Shift Summary: Include Pain RX BP [...] to do assessment. Refused labs from the slab worker until this nurse came and educated patient [...] intention has depression wishful of Monitoring Requirements [facility] Suicide Policy [facility] Suicide Risk/Telesitter Screening Utilizing this rating scale, [...] Nursing Progress Note Patient Name: Estefani Jimenez Jarek Room # 836/836-01 ISO: None Item for corporate director talent assessment Comments Shift Summary: Include Pain RX BP [...] intention has depression wishful of Monitoring Requirements [facility] Suicide Policy [facility] Suicide Risk/Telesitter Screening Utilizing this rating scale, [...] suicide observation protocols. lan of Care - Nan Tomlin MSW - 03/25/2019 7:58 AM PDTReferral for housing concernsElectronically sig javi by JENNIFER Xavier at 03/25/2019 7:59 AM PDTPlan of Care - Radha Haddad RN - 03/25/2019 3:03 AM PDT 8N & 8S Nursing Progress Note Patient Name: Estefani Tilley Room # 836/836-01 ISO: None Item for corporate director talent assessment Comments Shift Summary: Include Pain RX BP [...] wishes she was n't alive. Monitoring Requirements [facility] Suicide Policy [facility] Suicide Risk/Telesitter Screening Utilizing this rating scale, [...] based on suicide observation protocols. lan of [facility] - Dalia Roman RN - 03/24/2019 4:24 PM PDT 8N & 8S Nursing Progress Note Patient Name: Estefani Tilley Room # 836/836-01 ISO: None Item for corporate director talent assessment Comments Shift Summary: Include Pain RX BP within ordered parameters? Stroke pt?:Depression screen Day [address] guided bx of T11, T12. HD this afternoon and us sami CARRASCO. R arm fistula wnl. IV ABX. Pain management with Percocet q 4 hrs. Elevated BP. Labetalol PRN. Scored positive on depression/suicide screening. aware. Social work c onsult ordered. Neuro [...] Discharge plan Patient/Family Goals C-SSRS Monitoring Requirements [facility] Suicide Policy [facility] Suicide Risk/Telesitter Screening Utilizing this rating scale, [...] 03/24/2019 2:58 PM PDTPlan of Michelle Worthington 03/24/2019 8:44 AM PDTDischarge Planning: Received a telephone call from Emili [facility] RN @ [facility] [phone]. Informed Emili that this patient was transferred to [facility]. Electronically signed by: Michelle Jackson 03/24/2019 8:45 lan of Ginger Poe RN - 03/24/2019 5:28 AM PDTFormatting of this note might be different from the o riginal. 8N & 8S Nursing Progress Note Patient Name: Estefani Tilley Room # 836/836-01 ISO: None Item for corporate director talent assessment Comments Shift Summary: Include Pain RX BP within ordered parameters? Stroke pt?:Depression screen Day 2 Pt admitted from hospital in [place] via [facility] at 0100. S/p c/o severe [...] stroke and anemia. Neuro Pt AOx4, TARANGO 01/15. C/o pain in back at 04/22. NIH [...] Pending C-SSRS Monitoring Requirements [facility] Suicide Policy [facility] Suicide Risk/Telesitter Screening Utilizing this rating scale, [...] | + +--------+ + + + | CULTURE FUNGUS, | Routin | 03/24/2019 | | [...] | [facility] | | | POC | [facility] [address], | | SACRED | | | | [place] [address] | | HEART | | | |Performed by [facility] [address], [place] [address] | | MEDICAL | | | | [...] + + | BETH [facility]Z | [address] [place] | [place] [address] | | | [facility] | [...] | [facility] | | | POC | [facility] [address], | | SACRED | | | | [place] [address] | | HEART | | | |Performed by [facility] [address], [place] [address] | | MEDICAL | | | | [...] + + | BETH LIZ | [address] | [place] [address] | | | [facility] | | | | | LABORATORY [...] | | LABORATORY | | | | [facility] [address] [place], | | [place] | | | | [place] [address] | | | | + + + + + + + + | Specimen | + + | Blood specimen | | (specimen) | + + + + + + + | Performing | Address | City/State/Zipcode | Phone Number | | Organization | | | | + + + + + | JIMRENUKA LIZ | [address] | [place] [address] | | | [facility] | | | | | YANY [...] ENCE | | | Immature | by [facility] [address] [place], | K/uL | SACRED | | | Granulocyte | [place] [address] | | HEART | | | s |Performed by [facility] [address], [place] [address] | | MEDICA L | | | [...] + + | BETH LIZ | [address] | [place] [address] | | | HEART [facility] | | | | [...] by | | | | | | [facility] [address], | | | | | | [place] [address] | | | | + + + + + + + + | Specimen | + + | Blood specimen | | (specimen) | + + + + + + + | Performing | Address | City/State/Zipcode | Phone Number | | Organization | | | | + + + + + | JIMJOSE ADora LIZ | [address] | [place] [address] | | | [facility] | | | | | LABORATORY [...] | | | POC | Performed by [facility] [address] | | SACRED | | | | [address] [place] | | HEART | | | | [address] | | MEDICAL | | | | [...] + + | BETH LIZ | [address] | [place] [address] | | | [facility] | | | | | LABORATORY [...] | | | POC | Performed by [facility] [address] | | SACRED | | | | [address], [place] | | HEART | | | | [address] | | MEDICAL | | | | [...] + | BETH LIZ | [address] [facility] [address] | [place] [address] | | | [facility] | | | | | LABORATORY [...] | | | POC | Performed by [facility] [address] | | SACRED | | | | [address] [place] | | HEART | | | | [address] | | MEDICAL | | | | [...] + | BETH LIZ | [address] [facility] [facility] [address] | [place] [address] | | | [facility] | | | | | LABORATORY [...] | | | POC | Performed by [facility] [address] | | SACRED | | | | [address] [place], [place] | | HEART | | | | [address] | | MEDICAL | | | | [...] + + | BETH LIZ | [address] | [place] [address] | | | [facility] | | | | | YANY [...] PROVIDE NCE | | | | by [place] [address] [address], | | SACRED | | | | [place] [address] | | HEART | | | |Performed by [place] [address] [address] [facility] [address], [place] [address] | | MEDICAL | | | | [...] + + | BETH LIZ | [address] | [place] [address] | | | [facility] | | | | | YANY [...] LUIS CE | | | | by [facility] [address], | | SACRED | | | | [place] [address] | | HEART | | | |Performed by [facility] [address], [place] [address] | | MEDICAL | | | | [...] + + | [facility] [place] | [address] | [place] [address] | | | [facility] | | | | | LABORATORY [...] | | LABORATORY | | | | [facility] [address], | | [place] | | | | [place] [address] | | | | + + + + + + + + | Specimen | + + | Blood specimen | | (specimen) | + + + + + + + | Performing | Address | City/State/Zipcode | Phone Number | | Organization | | | | + + + + + | BETH LIZ | [address] [place] | [place] [address] | | | [facility] | | | | | LABORATORY [...] ENCE | | | Counted | by [place] [address], | | SACRED | | | | [place] [address] | | HEART | | | |Performed by [facility] [address], [place] [address] | | MEDICA L | | | [...] [address] | [place] [address] | | | [facility] | | | | | LABORATORY [...] | | | POC | Performed by [facility] [address] | | SACRED | | | | [address], [place] | | HEART | | | | [address] | | MEDICAL | | | | [...] + + | BETH LIZ | [address] | [place] [address] | | | [facility] | | | | | LABORATORY [...] | [facility] | | | POC | [facility] [address], | | SACRED | | | | [place] [address] | | HEART | | | |Performed by [facility] [address], [place] [address] | | MEDICAL | | | | [...] + | JIMJOSE ADora LIZ | [address] | [place] [address] | | | [facility] | | | | | LABORATORY [...] | | | POC | Performed by [facility] [address] | | SACR[address] | | | | [address], [place] | | HEART | | | | [address] | | MEDICAL | | | | [...] | [address] | [place] [address] | | | [facility] MEDICAL [facility]ENTER | [...] | [facility] | | | POC | [facility] [address] [facility] [address], | | SACRED | | | | [place] [address] | | HEART | | | |Performed by [facility] [address], [place] [address] | | MEDICAL | | | | [...] + + | BETH LIZ | [address] | [place] [address] | | | [facility] | | | | | YANY [...] by | | | | | | [facility] [address] [place], | | | | | | [place] [address] | | | | + + + + + + + + | Specimen | + + | Blood specimen | | (specimen) | + + + + + + + | Performing | Address | City/State/Zipcode | Phone Number | | Organization | | | | + + + + + | BETH LIZ | [address] | [place] [address] | | | [facility] | | | | | LABORATORY [...] ENCE | | | Counted | by [facility] [address], | | SACRED | | | | [place] [address] | | HEART | | | |Performed by [facility] [address], [place] [address] | | MEDICA L | | | [...] + + | BETH LIZ | [address] | [place] [address] | | | [facility] | | | | | YANY [...] LUIS CE | | | | by [facility] [address], | | SACRED | | | | [place] [address] | | HEART | | | |Performed by [facility] [address] [facility] [address], [place] | | MEDICAL | | | [...] + + | BETH [facility]CR[facility] | [address] | [place] | | | HE[facility] MEDICAL CENTER [...] | | LABORATORY | | | | [facility] [address] [facility] [address], | | CERN[place] | | | | [place] [address] | | | | + + + + + + + + | Specimen | + + | Blood specimen | | (specimen) | + + + + + + + | Performing | Address | City/State/Zipcode | Phone Number | | Organization | | | | + + + + + | PROVIDEJOSE AE SACREVANS | [address] | [place] [address] | | | [facility] | | | | | LABORATORY [...] | | | POC | Performed by [facility] [address] | | SACR[address] | | | | [address], [place] | | HEART | | | | [address] | | MEDICAL | | | | [...] + + | BETH LIZ | [address] | [place] [address] | | | HEART [facility] | | | | [...] | | | POC | Performed by [facility] [address] | | [place] | | | | [address] [place] | | HEART | | | | [address] | | MEDICAL | | | | [...] | [address] | [place] | | | [facility] | | | | | LABORATORY [...] | RIMAE | | | POC | [facility] [address], | | SACRED | | | | [place] | | HEART | | | |Performed by [facility] [address], [place], [place] | | MEDICAL | | | [...] + + | BETH LIZ | [address] | [place] [address] | | | [facility] | | | [...] | | LABORATORY | | | | [facility] [address] [place], | | [place] | | | | [place] [address] | | | | + + + + + + + + | Specimen | + + | Blood specimen | | (specimen) | + + + + + + + | Performing | Address | City/State/Zipcode | Phone Number | | Organization | | | | + + + + + | BETH SACRED | [address] | [place] [address] | | | [facility] | | | | | LABORATORY [...] PROVID ENCE | | | | by [facility] [address], | | SACRED | | | | [place] [address] | | HEART | | | |Performed by [facility] [address], [place] [address] | | MEDICA L | | | [...] + + | RIMAE AGUSTO | [address] | [place] [address] | | | [facility] | | | | | LABORATORY [...] | | | POC | Performed by [facility] [address] | | SACRED | | | | [address] [place], [place] | | HEART | | | | [address] | | MEDICAL | | | | [...] + + | BETH LIZ | [address] | [place] [address] | | | HEART [facility] | | | | [...] | | | POC | Performed by [facility] [address] | | SACRED | | | | [address] [place] | | HEART | | | | [address] | | MEDICAL | | | | [...] + + | BETH LIZ | [address] | [place] [address] | | | [facility] | | | | | LABORATORY [...] | [facility] | | | POC | [facility] [address], | | SACRED | | | | [place] | | HEART | | | |Performed by [facility] [address] [facility] [facility] [address], [place], [place] | | MEDICAL | | | [...] + + | [facility] | [address] | [place] | | | HE[facility] MEDICAL CENTER [...] | [facility] | | | POC | [facility] [address], | | SACRED | | | | [place] [address] | | HEART | | | |Performed by [facility] [address], [place] [address] | | MEDICAL | | | | [...] + + | BETH LIZ | [address] | [place] [address] | | | [facility] | | | | | YANY [...] by | | | | | | [facility] [address] [place], | | | | | | [place] [address] | | | | + + + + + + + + | Specimen | + + | Blood specimen | | (specimen) | + + + + + + + | Performing | Address | City/State/Zipcode | Phone Number | | Organization | | | | + + + + + | BETH LIZ | [address] [facility] [address] [facility] [address] | [place] [address] | | | [facility] | | | | | YANY [...] | | | POC | Performed by [facility] [address] | | SACRED | | | | [address] [place], [place] | | HEART | | | | [address] | | MEDICAL | | | | [...] [address] | [place] [address] | | | HEART MEDICAL CENTER | [...] | | | POC | Performed by [facility] [address] | | SACRED | | | | [address] [place] | | HEART | | | | [address] | | MEDICAL | | | | [...] + | BETH LIZ | [address] [facility] [facility] [address] | [place] [address] | | | [facility] | | | | | LABORATORY [...] | | | POC | Performed by [facility] [address] | | SACRED | | | | [address] [place], [place] | | HEART | | | | [address] | | MEDICAL | | | | [...] SACREVANS | [address] | [place] [address] | | | HEART MEDICAL CENTER | [...] [facility] | | | | Performed by [facility] [address] | | SACRED | | | | [address] [place] | | HEART | | | | [address] | | MEDICAL | | | | [...] + | BETH LIZ | [address] [facility] [address] | [place] [address] | | | [facility] | | | | | LABORATORY [...] | | | POC | Performed by [facility] [address] | | SACRED | | | | [address], [place] | | HEART | | | | [address] | | MEDICAL | | | | [...] SACRED | [address] | [place] [address] | | | HEART [facility] | | | | [...] by | | | | | | [facility] [address] [place], | | | | | | [place] [address] | | | | + + + + + + + + | Specimen | + + | Blood specimen | | (specimen) | + + + + + + + | Performing | Address | City/State/Zipcode | Phone Number | | Organization | | | | + + + + + | JIMJOSE ADora LIZ | [address] | [place] [address] | | | [facility] | | | | | LABORATORY [...] | | LABORATORY | | | | [facility] [address], | | [place] | | | | [place] [address] | | | | + + + + + + + + | Specimen | + + | Blood specimen | | (specimen) | + + + + + + + | Performing | Address | City/State/Zipcode | Phone Number | | Organization | | | | + + + + + | B[facility] | [address] | [place] [address] | | | [facility] | | | | | LABORATORY CERMICA | | | | + + + [...] PROVID ENCE | | | | by [facility] [address], | | SACRED | | | | [place] | | HEART | | | |Performed by [facility] [address], [place] | | MEDICA L | | [...] SACRED | [address] | [place] [place] | | | [facility] | | | | | LABORATORY [...] CE | | | B-12 | by [facility] [address], | | SACRED | | | | [place] [address] | | HEART | | | |Performed by [facility] [address], [place] [address] | | MEDICAL | | | | [...] SACRED | [address] | [place] [address] | | | [facility] | | | | | LABORATORY [...] by | | | | | | [facility] [address], | | | | | | [place] [address] | | | | + + + + + + + + | Specimen | + + | Blood specimen | | (specimen) | + + + + + + + | Performing | Address | City/State/Zipcode | Phone Number | | Organization | | | | + + + + + | BETH LIZ | [address] | [place] [address] | | | [facility] | | | | | YANY [...] | | | POC | Performed by [facility] [address] | | SACRED | | | | [address] [place] [place], [place] | | HEART | | | | [address] | | MEDICAL | | | | [...] [address] | [place] [address] | | | [facility] | | | | | YANY [...] | | | POC | Performed by [facility] [address] | | SACRED | | | | [address], [place] | | HEART | | | | [address] | | MEDICAL | | | | [...] [address] | [place] [address] | | | [facility] | [...] | | | POC | Performed by [facility] [address] | | SACRED | | | | [address] [place], [place] | | HEART | | | | [address] | | MEDICAL | | | | [...] + + | BETH LIZ | [address] | [place] [address] | | | [facility] | | | | | LABORATORY [...] PROVID ENCE | | | | by [facility] [address], | | SACRED | | | | [place] [address] | | HEART | | | |Performed by [facility] [address], [place] [address] | | MEDICA L | | | [...] + | BETH LIZ | [address] | [place] [address] | | | [facility] | | | | | LABORATORY [...] LUIS CE | | | | by [facility] [address], | | SACRED | | | | [place] [address] | | HEART | | | |Performed by [facility] [address], [place] [address] | | MEDICAL | | | | [...] + | [facility] | [address] | [place] [address] | | | [facility] | | | | | LABORATORY [...] | 15 (L)Comment: eGFR<60 | >=90 | [facility] | | | GFR | consistent with impaired | mL/min/1.73m2 | SACRED | | | | kidney function.For | | HEART | | | | Americans, | | MEDICAL | | | | multiply the calculated | | CENTER | | | | GFR by 1.210Performed by | | LABORATORY | | | | [facility] [address], | | [place] | | | | [place] [address] | | | | + + + + + + + + | Specimen | + + | Blood specimen | | (specimen) | + + + + + + + | Performing | Address | City/State/Zipcode | Phone Number | | Organization | | | | + + + + + | BETH LIZ | [address] | [place] [address] | | | [facility] | | | | | LABORATORY [...] | | | POC | Performed by [facility] [address] | | SACRED | | | | [address] [place] | | HEART | | | | [address] | | MEDICAL | | | | [...] | JIMJOSE ADora LIZ | [address] | [place] [address] | | | [facility] | | | | | LABORATORY [...] | | | POC | Performed by [facility] [address] | | SACRED | | | | [address]th [place] | | HEART | | | | [address] | | MEDICAL | | | | [...] SACRED | [address] | [place] [address] | | | [facility] | | | | | LABORATORY [...] | SACRED | | | Total | [address] | | HEART | | | | [address] [place], [place] | | MEDICAL | | | | [phone] Daniel | | CENTER | | | | Lauro HOLDEN Ph:[phone] | | LABORATORY | | | | | | [place] | | + + + + + + + + | Specimen | + + | Blood specimen | | (specimen) | + + + + + + + | Performing | Address | City/State/Zipcode | Phone Number | | Organization | | | | + + + + + | BETH LIZ | [address] | [place] [address] | | | [facility] | | | | | YANY [...] + + | Julian, Rad Results In 03/24/2019 4:19 PM PDT | | CT [...] | SACRED | | | | by [facility] [address], | | HEART | | | | [place] [address] | | MEDICAL | | | | [...] + | BETH LIZ | [address] | [place] [address] | | | [facility] | | | | | LABORATORY [...] | SACRED | | | | by [facility] [address], | | HEART | | | | [place] [address] | | MEDICAL | | | | [...] + + | [facility] | [address] | [place] [address] | | | [facility] | | | [...] | MEDICAL | | | | by [place] [address], | | CENTER | | | | [place] [address] | | LABORATORY | | | |Performed by [facility] [address], [place] [address] | | CERNER | | | | [...] [address] | [place] [address] | | | [facility] | | | | | LABORATORY [...] | | | POC | Performed by [facility] [address] | | SACRED | | | | [address] [place], [place] | | HEART | | | | [address] | | MEDICAL | | | | [...] + + | BETH LIZ | [address] | [place] [address] | | | [facility] | | | | | LABORATORY [...] | | | POC | Performed by [facility] [address] | | SACRED | | | | [address] [place] | | HEART | | | | [address] | | MEDICAL | | | | [...] + + | [facility] | [address] | [place] [address] | | | [facility] | | | | | LABORATORY [...] CENTER | | | | 3.5Performed by [facility] [address] | | LABORATORY | | | | [address] [place] | | [place] | | | | [address] | | | | + + + + + + + + | Specimen | + + | Blood specimen | | (specimen) | + + + + + + + | Performing | Address | City/State/Zipcode | Phone Number | | Organization | | | | + + + + + | [facility] | [address] | [place] [address] | | | [facility] | [...] | | | Immature | Performed by [facility] [address] | K/uL | SACRED | | | Granulocyte | [place] | | HEART | | | s | [phone] | | MEDICAL | | | | [...] + + | BETH LIZ | [address] | [place] [address] | | | [facility] | [...] | | LABORATORY | | | | [facility] [address], | | JESI | | | | [place] [address] | | | | + + + + + + + + | Specimen | + + | Blood specimen | | (specimen) | + + + + + + + | Performing | Address | City/State/Zipcode | Phone Number | | Organization | | | | + + + + + | BETH LIZ | [address] | [place] [address] | | | [facility] | | | | | YANY [...] | | | | First dose on [facility] 03/30/19 at 1130 | | AM [...] scheduled: AC, NPO, Daytime | | | 7065-6070 Use NIGHT DOSE for | | | doses scheduled: HS, 3AM, | | | Nighttime 3429-1262 If the BG is | | | [...] | | | | | | | Ray 03/24/19 at 0201 | | | | [...] 8:24 | | | | | Starting 03/24/19 at 0159 | | PM PDT | [...] AM PDT | | | | | Wed03/24/19 at 0730, Do not cut | | [...]
--- OUTSIDE RECORDS SUMMARY | ~2020-03-23 | XMS | Encounter Summary ---
Demographics + + + | Address | [address] | | | [place] [address] | + + + | Home Phone [...] | Author | [facility] | | | and [place] | + + + | Organization | [facility] | | | and [place] | + + + | Address | Unknown | + + + | Phone | Unavailable | + + + Support + + + + + | Name | Relationship | Address | Phone | + + + + + | India Tilley | ECON | [address] | | | | | [place], [place] | | | | | [address] | | + + + + + [...] Team Providers + +------+ + | Care Dietetics Teacher Name | Role | Phone | + +------+ + PCP | Unavailable | + +------+ + Encounter Details +--------+ + + + + | Date | Type | Department | Care Team | Description | +--------+ + + + + | 07/07/ | Abstract | [facility] | Gopi Muñoz | | | 2018 | | NEPHROLOGY [address] | M, DO [address] | | | | | [address] | [address] [place] | | | | | [place] | [place] [address] | | | | | [address] | [phone] | | | | | [phone] | | | +--------+ + + + [...]
--- OUTSIDE RECORDS SUMMARY | ~2020-03-23 | XMS | Encounter Summary ---
Demographics + + + | Address | [address] | | | [place] [address] | + + + | Home Phone [...] + + + | Author | [facility] | | | and [place]al[place]it[place] | + + + | Organization | [facility] | | | and [place] | + + + | Address | Unknown | + + + | Phone | Unavailable | + + + Support + + + + + | Name | Relationship | Address | Phone | + + + + + | India Tilley | ECON | [address] | | | | | [place], [place] | | | | | [address] | | + + + + + [...] Team Providers + +------+ + | Care Glassblower Name | Role | Phone | + +------+ + | Renato Pierson | PCP | | + +------+ + Reason for Visit + +--------+ + | Reason | Onset | Comments | | | Date | | + +--------+ + | Procedure | 08/17/ | no show | | | 2019 | | + +--------+ + Encounter Details +--------+ + + + + | Date | Type | Department | Care Team | Description | +--------+ + + + + | 08/17/ | Telephone | [facility] | Danae Gilkatharina Menard, | Procedure (no show) | | 2019 | | VASCULAR SURGERY | RN | | | | | [address] | | | | | | [place] | | | | | | [address] | | | | | | [phone] | | | +--------+ + + + [...] encounter Miscellaneous Notes Telephone Encounter - Louise Fink, RN - 08/17/2019 1:24 PM PSTReceived call from cat h lab that patient is still at home and will not be making her appointment today. Patient s tates "clinic" was suppose to help her with transportation by providing her with a gas card. Called and inform nurse manager vehicle Pb at [facility]. He stated understanding and w ill pass the information to his team. Electronically signed by Louise Fink RN at 08/17 1:28 PM PSTdocumented in this encounter Plan of Treatment Not on filedocumented as of this encounter Visit Diagnoses Not on filedocumented in this encounter
--- OUTSIDE RECORDS SUMMARY | ~2020-03-23 | XMS | Encounter Summary ---
Demographics + + + | Address | [address] | | | [place] [address] | + + + | Home Phone | | + + + | Preferred Language | Unknown | + + + | Marital Status | Single | + + + | Zoroastrianism Affiliation | Unknown | + + + | Race | Unknown | + + + | Ethnic Group | Unknown | + + + Author + + + | Author | [facility] | | | and Kamal[place]it[place] | + + + | Organization | [facility] | | | and [place] | + + + | Address | Unknown | + + + | Phone | Unavailable | + + + Support + + + + + | Name | Relationship | Address | Phone | + + + + + | India Tilley | ECON | [address] | | | | | [place], [place] | | | | | [address] | | + + + + + [...] Team Providers + +------+ + | Care District Operations Manager Name | Role | Phone | + +------+ + PCP | Unavailable | + +------+ + Encounter Details +--------+ + + + + | Date | Type | Department | Care Team | Description | +--------+ + + + + | 06/19/ | Telephone | [facility] | Ibis Arriola | | | 2019 | | [facility] | LISA Restrepo | | | | | [address] | | | | | | [place] | | | | | | [address] | | | | | | [phone] | | | +--------+ + + + [...] this encounter Miscellaneous Notes Telephone Encounter - Heather Fox Glass Inserter - 06/20/2019 10:31 AM PDTCalle d pt to scheduled bone biopsy. Per pt, she is currently admitted at [facility] as of last ht. Pt would like to have biopsy done at [facility] if possible. elephone Encounter - Deepa Melendez MD - 06/19/2019 11:51 AM PDTOk to schedule. 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 Referring Physician: Dereck Miller Office contact: [phone] Patient Phone: [phone] Imaging: MR Lsp [id number] (05/23); Tsp [id number] (05/18) Patient Dx: As above, recent admit [facility] (discharge note in [facility]). ESRD, DM, HTN Patient BMI: 28 Blood thinners: none Any Red Flags?: To be performed by: 06/15/19 8:50 You routed this conversation to MD Ta Westbrook MD Kelly K eophilavanh, Glass Inserter LISA King PA documented in th is encounter Plan of Treatment Not on filedocumented as of this encounter Visit Diagnoses Not on filedocumented in this encounter"
--- OUTSIDE RECORDS SUMMARY | ~2020-03-23 | XMS | Encounter Summary ---
Demographics + + + | Address | [address] | | | [place] [address] | + + + | Home Phone [...] Author | [facility] | | | and [place]al[place]it[place] | + + + | Organization | [facility] | | | and [place] | + + + | Address | Unknown | + + + | Phone | Unavailable | + + + Support + + + + + | Name | Relationship | Address | Phone | + + + + + | India Tilley | ECON | [address] | | | | | [place], [place] | | | | | [address] | | + + + + + [...] Team Providers + +------+ + | Care Advertising Dispatch Clerk Name | Role | Phone | [...] | [place] | [place] [address] | | | | | [place] [address] | | | | | | [phone] | | | +--------+ + + + [...] for comparison only - no result from [place]. | [facility] | + + + + +---------+ + + | Performing | Address | City/State/Zipcode | Phone Number | | Organization | | | | + +---------+ + + | [facility] | | | | + +---------+ + + documented in this encounter Visit Diagnoses Not on filedocumented in this encounter"
--- OUTSIDE RECORDS SUMMARY | ~2020-03-23 | XMS | Encounter Summary ---
Demographics + + + | Address | [address] | | | [place] [address] | + + + | Home Phone [...] | Author | [facility] | | | and [place] | + + + | Organization | [facility] | | | and [place] | + + + | Address | Unknown | + + + | Phone | Unavailable | + + + Support + + + + + | Name | Relationship | Address | Phone | + + + + + | India Tilley | ECON | [address] | | | | | [place], [place] | | | | | [address] | | + + + + + [...] Team Providers + +------+ + | Care Renal Nurse Name | Role | Phone | + +------+ + PCP | Unavailable | + +------+ + Encounter Details +--------+ + + + + | Date | Type | Department | Care Team | Description | +--------+ + + + + | 01/15/ | Hospital | [facility] | | | | 2006 - | Encounter | MED CTR CANCER | | | | | | JOSE [place] | | | | 02/10/ | | [place] | | | | 2006 | | [address] | | | | | | [phone] | | | +--------+ + + + [...]
--- OUTSIDE RECORDS SUMMARY | ~2020-03-23 | XMS | Encounter Summary ---
Demographics + + + | Address | [address] | | | [place] [address] | + + + | Home Phone [...] + | Author | [facility] | | | and [place]al[place]it[place] | + + + | Organization | [facility] | | | and [place] | + + + | Address | Unknown | + + + | Phone | Unavailable | + + + Support + + + + + | Name | Relationship | Address | Phone | + + + + + | India Tilley | ECON | [address] | | | | | [place], [place] | | | | | [address] | | + + + + + [...] Team Providers + +------+ + | Care Acquisitions Assistant Name | Role | Phone | + +------+ + PCP | Unavailable | + +------+ + Encounter Details +--------+ + + + + | Date | Type | Department | Care Team | Description | +--------+ + + + + | 01/10/ | Off-Site | [facility] | Gopi Muñoz | End stage renal | | 2018 | Visit | NEPHROLOGY [address] | M, DO [address] | disease (HCC) | | | | [address] | [address] [place] | (Primary Dx) | | | | [place] | [place] [address] | | | | | [address] | [phone] | | | | | [phone] | | | +--------+ + + + [...] HTN and diabetic glomerul osclerosis at the [facility]. She also has depression, long standing HTN, [...] the 01/10/18 encounter (Off-Site Visit) with Jessie Muñoz DO Medication Sig Dispense Refill [DISCONTINUED] acetaminophen-codeine [...] Will recheck her in 2 weeks. CC: [place], [place]. Santos Stephenson MD, FACS documented in thi s encounter Plan of Treatment Not on filedocumented as of this encounter Visit Diagnoses + + | Diagnosis | + + | End stage renal disease (HCC) - Primary End stage renal disease | + + documented in this encounter"
--- OUTSIDE RECORDS SUMMARY | ~2020-03-23 | XMS | Encounter Summary ---
Demographics + + + | Address | [address] | | | [place] [address] | + + + | Home Phone [...] Author | [facility] | | | and Kamaljit[place] | + + + | Organization | [facility] | | | and [place] | + + + | Address | Unknown | + + + | Phone | Unavailable | + + + Support + + + + + | Name | Relationship | Address | Phone | + + + + + | India Tilley | ECON | [address] | | | | | [place], [place] | | | | | [address] | | + + + + + [...] Team Providers + +------+ + | Care Final Rail Cutter Name | Role | Phone | + +------+ + PCP | Unavailable | + +------+ + Encounter Details +--------+ + + + + | Date | Type | Department | Care Team | Description | +--------+ + + + + | 03/02/ | [facility] | [facility] | [place], | | | 2007 | Encounter | MED CTR EMERGENCY | Venkatesh Esteban MD [address] | | | | | CENTER [address] | [address] | | | | | [place] | [place] [address] | | | | | [address] | [phone] | | | | | [phone] | | | +--------+ + + + [...]
--- OUTSIDE RECORDS SUMMARY | ~2020-03-23 | XMS | Encounter Summary ---
Demographics + + + | Address | [address] | | | [place] [address] | + + + | Home Phone [...] Author | [facility] | | | and [place]al[place]it[place] | + + + | Organization | [facility] | | | and [place] | + + + | Address | Unknown | + + + | Phone | Unavailable | + + + Support + + + + + | Name | Relationship | Address | Phone | + + + + + | India Tilley | ECON | [address] | | | | | [place], [place] | | | | | [address] | | + + + + + [...] Team Providers + +------+ + | Care French Binding Folder Name | Role | Phone | + +------+ + PCP | Unavailable | + +------+ + Reason for Visit + +--------+ + | Reason | Onset | Comments | | | Date | | + +--------+ + | Vascular Access | 03/11/ | | | Problem | 2018 | | + +--------+ + Encounter Details +--------+ + + + + | Date | Type | Department | Care Team | Description | +--------+ + + + + | 03/11/ | Telephone | [facility] | Santos Stephenson | Vascular Access | | 2018 | | SURGERY [address] | MD Kinga, FACS [address] | [address] | | | | [address] [place], [place] | [facility] | | | | | [address] | [place] [address] | | | | | [phone] | [phone] | | | | | | | [...] this encounter Miscellaneous Notes Telephone Encounter - Awa Hart RN - 03/11/2018 8:25 AM PDTFaxedElectronically reed d by Awa Hart RN at 03/11/2018 8:25 AM PDTTelephone Encounter - Tahira Mensah - 03/11 8:07 AM Evan from the dialysis center in [place] called, and she stated that t he patient told them that Dr Stephenson said she could could start cannulation on the new fistula . Aleta said she needs a order faxed over stating that they can use the new fistula before they use it. If you could fax that to them at [phone], they'd appreciate it.Mitesh murray signed by Tahira Mensah at 03/11/2018 8:10 AM PDTdocumented in this encounter Plan of Treatment Not on filedocumented as of this encounter Visit Diagnoses Not on filedocumented in this encounter"
--- OUTSIDE RECORDS SUMMARY | ~2020-03-23 | XMS | Encounter Summary ---
Demographics + + + | Address | [address] | | | [place] [address] | + + + | Home Phone [...] Author | [facility] | | | and Kamaljitana | + + + | Organization | [facility] | | | and [place] | + + + | Address | Unknown | + + + | Phone | Unavailable | + + + Support + + + + + | Name | Relationship | Address | Phone | + + + + + | India Tilley | ECON | [address] | | | | | [place], [place] | | | | | [address] | | + + + + + [...] Team Providers + +------+ + | Care Fun House Operator Name | Role | Phone | [...] | | [place] | [place] [address] | | | | | [address] | [phone] | | | | | [phone] | | | +--------+ + + + [...] Tatiana Rendon - 12/27/2018 9:13 AM [facility] sign ed and dated 12/23/[address] Muñoz. Sent to scan. documented in this encounter Plan of Treatment Not on filedocumented as of this encounter Visit Diagnoses Not on filedocumented in this encounter"
--- OUTSIDE RECORDS SUMMARY | ~2020-03-23 | XMS | Encounter Summary ---
Demographics + + + | Address | [address] | | | [place] [address] | + + + | Home Phone | | + + + | Preferred Language | Unknown | + + + | Marital Status | Single | + + + | Gnosticist Affiliation | Unknown | + + + | Race | Unknown | + + + | Ethnic Group | Unknown | + + + Author + + + | Author | [facility] | | | and Kamal[place]itana | + + + | Organization | [facility] | | | and [place] | + + + | Address | Unknown | + + + | Phone | Unavailable | + + + Support + + + + + | Name | Relationship | Address | Phone | + + + + + | India Tilley | ECON | [address] | | | | | [place], [place] | | | | | [address] | | + + + + + [...] Team Providers + +------+ + | Care Compensation Intern Name | Role | Phone | + +------+ + PCP | Unavailable | + +------+ + Reason for Visit + +--------+ + | Reason | Onset | Comments | | | Date | | + +--------+ + | Hospital Follow-up | 04/03/ | | | | 2019 | | + +--------+ + Encounter Details +--------+ + + + + | Date | Type | Department | Care Team | Description | +--------+ + + + + | 04/03/ | Telephone | [facility] | Michelle Lopez | Hospital Follow-up | | 2019 | | Internal Medicine | DO Brandon [address] | | | | | Hospitalists [address] | | | | | [address] [place], [place] | [place] [address] | | | | | [address] | [phone] | | | | | [phone] | | | +--------+ + + + [...] this encounter Miscellaneous Notes Telephone Encounter - Jaquan Shah RN - 04/03/2019 3:27 PM PDTAttempted hospital fo llow up call. Pt has phone restrictions that restrict our ability to complete call. Confirme d that DC Summary Sent to PCP. JAQUAN SHAH documented in this encounter Plan of Treatment Not on filedocumented as of this encounter Visit Diagnoses Not on filedocumented in this encounter"
--- OUTSIDE RECORDS SUMMARY | ~2020-03-23 | XMS | Encounter Summary ---
Demographics + + + | Address | [address] | | | [place] [address] | + + + | Home Phone [...] Author | [facility] | | | and [place]aljitana | + + + | Organization | [facility] | | | and [place] | + + + | Address | Unknown | + + + | Phone | Unavailable | + + + Support + + + + + | Name | Relationship | Address | Phone | + + + + + | India Tilley | [place] | [address] | | | | | [place], [place] | | | | | [address] | | + + + + + [...] Team Providers + +------+ + | Care Rotary Pump Operator Name | Role | Phone | [...] | | [place] | [place] [address] | | | | | [address] | [phone] | | | | | [phone] | | | +--------+ + + + [...]
--- OUTSIDE RECORDS SUMMARY | ~2020-03-23 | XMS | Encounter Summary ---
Demographics + + + | Address | [address] | | | [place] [address] | + + + | Home Phone [...] | [facility] | | | and Kamaljitana | + + + | Organization | [facility] | | | and [place] | + + + | Address | Unknown | + + + | Phone | Unavailable | + + + Support + + + + + | Name | Relationship | Address | Phone | + + + + + | India Tilley | ECON | [address] | | | | | [place], [place] | | | | | [address] | | + + + + + [...] Team Providers + +------+ + | Care Mailer Apprentice Name | Role | Phone | [...] | | | | | site, | [place], [place] | TAB[place], [place]TOR[place] | | | | | unspecified | [address] | [address] | | | | | type (HCC) | Phone: | Phone: | | | | | | [phone] | [phone] | | | | | | Fax: | Fax: | | | | | | [phone] | [phone] | + + + + + + [...] + + | 03/24/ | Hospital | [facility] | Erlinda Simon, | Osteomyelitis, | | 2019 - | Encounter | [facility] | [address] | unspecified site, | | | | NEPHROLOGY [address] [place] | unspecified type | | 03/31/ | | [address] [place] | [address] | (HCC) (Primary Dx); | | 2019 | | [address] | | Discitis of thoracic | | | | [phone] | Katey Hill MD | region; Other | | | | | [address] | secondary | | | | | [place] [address] | osteoarthritis of | | | | | [phone] | multiple sites; ESRD | | | | | | (end stage renal | | | | | Michelle Lopez, | disease) on dialysis | | | | | DO [address] | (HCC); Essential | | | | | [address] [place], | hypertension; ESRD | | | | | [place] [address] | (end stage renal | | | | | [phone] | disease) (HCC); Type | | | [...] Up Appointments: ELI BALL [address] [facility] [address] [facility] [address] [facility] [phone] [facility] [address] [facility] [phone] Discharge Disposition: Home with Home Health Consultants This Admission: ID, Nephrology Hospital Course: 73-year-old female with history of ESRD on hemodialysis, hypertension, type 2 diabetes, hyp othyroidism, chronic anemia, hyperlipidemia with a history of stroke transferred from [facility] for evaluation of T11-T12 lesion noted on [...] to go to SNF ([facility] in [place], [place] - of which has accepted her [...] dialysis days after dialysis Osteomyelitis/Discitis of T11, [id number] -MRI spine 03/23/19: "mild paravertebral soft tissue [...] dialysis patient - has OP clinic in [place] already Macrocytic anemia likely secondary to-likely anemia [...] Value Units Date/Time Culture, Aerobic + Anaerobic [[id number]] Collected: 03/24/191513 Order Status: Completed Lab Status: Final result Updated: 03/29/19717 Specimen: Body Fluid from Vertebrae, Thoracic FINAL REPORT -- No Growth No anaerobes isolated Gram Stain Few Neutrophils No squamous epithelial cells seen No organisms seen Comment: Performed by [facility] [address] [place] [address] Gram Stain [[id number]] Collected: 03/24/191513 Order Status: Canceled Lab Status: No result Updated: 03/24/191514 Specimen: Body Fluid from Vertebrae, Thoracic Culture, AFB Smear [[id number]] Collected: 03/24/191513 Order Status: Completed Lab Status: Preliminary result Updated: 03/25/19 1054 Specimen: Body Fluid from Vertebrae, Thoracic AFB Smear Result No Acid Fast Bacilli Seen Comment: Performed by [facility] [address] [place] [address] Culture, Fungus, Smear [[id number]] Collected: 03/24/191513 Order Status: Completed Lab Status: Preliminary result Updated: 03/25/19 1039 Specimen: Body Fluid from Vertebrae, Thoracic CALCOFLUOR No fungal elements seen Comment: Performed by [facility] [address] [place] [address] Culture, Blood [[id number]] Collected: 03/23/19 2333 Order Status: Completed Lab Status: Final result Updated: 03/28/19 2352 Specimen: Blood Culture No growth after 5 days incubation. Culture, Blood [[id number]] Collected: 03/23/19 2255 Order Status: Completed Lab [...] this chart may have been created with [employer] voice recognition software. Occasi onal wrong-word or [...] | | | | | ([facility]), Right hip | | | | [...] 03/31/2019 5:42 PM PDTPatient left with family, [facility] supplies and i nstructions received before discharge and RX's filled at outpt pharmacy. VSS, ambulating wit h SBA, A&O x4, accepting of discharge. Dialysis completed this AM. Pain controlled with q4 o xy, LD 1400. Home health will f/u tomorrow. AVS reviewed and sent with patient, verbalized u nderstanding. Merry Hess, CYTOLOGY TECHNOLOGIST - 03/31/2019 11:05 AM PDTSOCIAL WORK PLAN: Home with [facility] NEXT STEPS: 1. Pt to follow up with [facility] 2. [facility] to follow up with pt at dc INTERVENTION: SW spoke with [facility], pt has a $2.50 out of pocket cost weekly, pt is agreeable to pay for this. Therefore pt will dc today with [facility]. ROBIN provided [facility] with hard script for IV abx. ROBIN faxed over HH order to [facility], ROBIN faxed over IV vanco script to [facility]. [facility] notified of pt's dc home. notified. Candie to meet with pt later this afternoon for teach. ROBIN provided pt with 3 gas cards to assist with transportation. No further dc needs identified. SW received call from [facility] HD clinic that they cannot provide IV Vanco as Vanco h as not been consigned by Storage Administrator that has privileges in [place]. IV Vanco will now be done b y Candie, [address] faxed over hard script to [facility]. They will have both IV Abx ready and will teach pt shortly. No further dc needs identified. CONTACTS: Yina La: sister India Tilley: sister [place] Medicaid Transportation: [place] Medicaid Transportation fax: [phone] [facility]: [phone] fax: [phone] [facility] [phone] [facility]: [phone] [facility]: [phone] [facility] FAX: [phone] after, Michelle Taylor DO - 03/31/2019 10:12 AM PDT Patient: Estefani Tilley Date of : 1945 Admit Date: 03/24/2019 Date of Service: 03/31/2019 PCP: Francisca Womack PA-C Hospital Day: Hospital Day: 8 Hospital Course: 73-year-old female with history of ESRD on hemodialysis, hypertension, type 2 diabetes, hyp othyroidism, chronic anemia, hyperlipidemia with a history of stroke transferred from [facility] for evaluation of T11-T12 lesion noted on [...] initially had planned to go to SNF ([facility] in [place], [place] - of which has accepted her [...] dialysis patient - has OP clinic in [place] already Macrocytic anemia likely secondary to-likely anemia [...] hoping to arrange home IV antibiotics through [facility]. Awaiting to see if insurance will cover [...] - 99 mg/dL Final Comment: Performed by [facility] [address] [place] [address] 03/30/2019 21:14 200 (H) 65 - 99 mg/dL Final Comment: Performed by [facility] [address] [place] [address] 03/30/2019 17:46 111 (H) 65 - 99 mg/dL Final Comment: Performed by [facility] [address] [place] [address] 12/09/2018 18:05 113 (H) 70 - 109 [...] this chart may have been created with [employer] voice recognition software. Occasi onal wrong-word or sound-alike substitutions may have occurred due to the inherent mckeon itations of voice recognition software. Please read the chart carefully and recognize, using context, where these substitutions have occurred rgJesus mcdonald MD - 03/31/2019 8:26 AM PDT . Infectious Diseases Progress Note Pt. Name/Age/: Estefani Tilley 73 y.o. 1945 Med. Record Number: [id number] Date of admission: 03/24/2019 Patient admitted with [...] Electronically signed by: Jesus Whitney, 03/31/2019 8:26 [facility] Robb Phillips, PharmD - 03/31/2019 7:25 AM [...] Nunez MD - 03/30/2019 9:45 PM PDT [facility] INPATIENT ROUNDING NOTE Date of Service: 03/30/2019 Rounding Physician: Randy Corrigan MD Patient Name: Estefani Tilley : 1945 Medical Record: [id number] Hospital Summary: Estefani Tilley is a 73 [...] Trace Corrigan MD, 03/30/2019, 21:45 an Saldivar, CYTOLOGY TECHNOLOGIST - 03/30/2019 2:34 PM PDT SOCIAL WORK D/C PLAN:DC home with [facility] providing IV-ABX and [facility] providing picc care and lab draws vs [facility] NEXT STEPS: -SW will need to follow up with SHAYE regarding providing IV-ABX to pt. -SW will need to follow up with [facility] regarding providing picc care and lab draws. -SW will need to follow up with [facility] regarding having pt receive vanco do se while at dialysis center if pt is to go home with IV-ABX -SW will need to follow up with [facility] if pt is unable to go home with IV-ABX rega ridng pt's DC -SW will need to fax SNF orders, scripts and PASRR to [facility] if pt is unable to go home -SW will need to provide gas cards to pt's family for transportation home. INTERVENTION:SW spoke with pt regarding acceptance to [facility]. Pt is now wanting to go home with IV-ABX. SW spoke with [facility]. They go out to [place], [place] and have openings for nursing care. Referral faxed to [facility]. Pt is amenable to using [facility] for IV-ABX. SW spoke with CANDIE martinez who will run pt's be nefits to see if she can DC home with IV-ABX. Pt states that SH[facility] can provide teach to her son to help administer IV-ABX. SW left message for [facility] to see if they can provide vanco dose to pt at [facility] on Wednesday, Wednesday and Wednesday if pt is able to go home. Pt states that she does dialysis on Wednesday, Wednesday and Wednesday from 12:00-4:00. SW received phone call from [facility]. They have accepted pt for admission if [...] if pt is going to go to [facility]. ASSESSMENT/CHART REVIEW:73 yr old femalewith a history of ESRD on hemodialysis, hypertens ion, type 2 diabetes, hypothyroidism,chronic anemia,hyperlipidemia, hx of stroke [facility] noted on MRI concerning fo r osteomyelitis. ROBIN met with pt's sister, Yina, and her cousin, Keri, who were waiting in pt's room while s he was in dialysis. ROBIN will need to follow up with pt re: d/c planning. Pt's sister and cousin related that pt mostly lives at Yina's house outside [place], [place], but does not like to be tied down because she enjoys attending [place] festivals and many events. She does at [facility] dialysis weekly. Pt has a vehicle and is very independent. D/C TRANSPORT:Pt can be transported home or to [facility] via family in a private car. They will need gas cards to help pay for transportation. BARRIERS TO D/C:none CONTACTS: Yina La: sister India Tilley: sister [place] Transportation: [place] Medicaid Transportation fax: [phone] [facility]: [phone] fax: [phone] [facility] [phone] [facility]: [phone] [facility]: [phone] [facility] FAX: [phone] Nan Cheney MSW - 03/30/2019 12:57 PM PDTSOCIAL WORK D/C PLAN:SNF: [facility] NEXT STEPS:Await bed availability INTERVENTION: ROBIN called and left message for Roneugene at [facility] regarding if they are willing to accept pt and to discuss transportation to and from dialysis. ROBIN also called and left message for [place] Medicaid transportation regarding if they can transp ort pt to and from dialysis upon DC. Pt states that she goes to [facility] dialys is in [place], [place] on Wed, Wed, and Fridays from 12:00-4:00 pm. ROBIN left message with [facility] dialysis regarding if there was any way that they may also be able to help with transportation to and from dialysis while pt is in rehab and to ensure that pt still has her chair time scheduled. [facility] is only open M on, Wednesday and Wednesday. ASSESSMENT/CHART REVIEW:73 yr old femalewith a history of ESRD on hemodialysis, hypertens ion, type 2 diabetes, hypothyroidism,chronic anemia,hyperlipidemia, hx of stroke [facility] lesion noted on MRI concerning fo r osteomyelitis. ROBIN met with pt's sister, Yina, and her cousin, Keri, who were waiting in pt's room while s he was in dialysis. ROBIN will need to follow up with pt re: d/c planning. Pt's sister and cousin related that pt mostly lives at Yina's house outside [facility], but does not like to be tied down because she enjoys attending [place] festivals and many events. She does at [facility] weekly. Pt has a vehicle and is very independent. D/C TRANSPORT:tbd BARRIERS TO D/C:none CONTACTS: Yina La: sister India Tilley: sister [place] Transportation: [place] Transportation fax: [phone] [facility]: [phone] fax: [phone] [facility] [phone] [facility]: [phone] signed by JENNIFER Xavier at 03/30 1:09 [...] with a history of stroke transferred from [facility] for evaluation of T11-T12 lesion noted on [...] need three times weekly dialysis while at [facility] as well. SW t o help [...] dialysis patient - has OP clinic in [place] already ---> will need SW to help [...] SNF - awaiting to hear back from [facility], in [place], [place] regarding possible acceptance there. Medically ready [...] Single Lumen 03/24/19 2143 Left Lateral Forearm uqsq-huc-gqybue daniel ter system 20 gauge;1 09/16 in [...] - 99 mg/dL Final Comment: Performed by [facility] [address] [place] [address] 03/29/2019 21:09 157 (H) 65 - 99 mg/dL Final Comment: Performed by [facility] [address] [place] [address] 03/29/2019 18:50 91 65 - 99 mg/dL Final Comment: Performed by [facility] [address] [place] [address] 12/09/2018 18:05 113 (H) 70 - 109 [...] this chart may have been created with [employer] voice recognition software. Occasi onal wrong-word or sound-alike substitutions may have occurred due to the inherent mckeon itations of voice recognition software. Please read the chart carefully and recognize, using context, where these substitutions have occurred rgJesus mcdonald MD - 03/30/2019 7:15 AM PDT . Infectious Diseases Progress Note Pt. Name/Age/: Estefani Tilley 73 y.o. 1945 Med. Record Number: [id number] Date of admission: 03/24/2019 Patient admitted with [...] Electronically signed by: Jesus Whitney, 03/30/2019 7:15 [facility] Mary Wade RN - 03/30/2019 6:16 AM [...] intention has depression wishful of Monitoring Requirements [facility] Suicide Policy [facility] Suicide Risk/Telesitter Screening Utilizing this [...] 03/29/2019 4:18 PM PDTSOCIAL WORK D/C PLAN:SNF: [facility] NEXT STEPS:Await bed availability INTERVENTION: SW called and spoke with admissions person at [facility], they are still discussing pt's case. They [...] anemia,hyperlipidemia, hx of stroke [facility] lesion noted on MRI concerning fo r osteomyelitis. SW met with pt's sister, Yina, and her cousin, Keri, who were waiting in pt's room while s he was in dialysis. SW will need to follow up with pt re: d/c planning. Pt's sister and cousin related that pt mostly lives at Yina's house outside [place], [place], but does not like to be tied down because she enjoys attending [place] festivals and many events. She does at [facility] weekly. Pt has a vehicle and is very independent. D/C TRANSPORT:tbd BARRIERS TO D/C:none CONTACTS: Yina La: sister Indai Tilley: sister [place] Medicaid Transportation: [facility]: [phone] fax: [phone] [facility] [phone] signed by JENNIFER Contreras at 03/29/2019 4:20 PM PDTHsu, Randy Nunez MD - 03/29/2019 12:32 PM PDT [facility] INPATIENT ROUNDING NOTE Date of Service: 03/29/2019 Rounding Physician: Randy Corrigan MD Patient Name: Estefani Tilley : 1945 Medical Record: [id number] Hospital Summary: Estefani Tilley is a 73 [...] with a history of stroke transferred from [facility] for evaluation of T11-T12 lesion noted on [...] awaiting to hear from [facility], in [place] regarding possible acceptance. May be able [...] dialysis patient - has OP clinic in [place] already ---> will need SW to help [...] SNF - awaiting to hear back from [facility], in [place], [place] regarding possible acceptance there. Could possibly [...] Single Lumen 03/24/19 2143 Left Lateral Forearm sfvu-bfk-wgkbfp daniel ter system 20 gauge;1 / in [...] - 99 mg/dL Final Comment: Performed by [facility] [address] [place] [address] 03/28/2019 21:06 144 (H) 65 - 99 mg/dL Final Comment: Performed by [facility] [address] [place] [address] 03/28/2019 11:22 119 (H) 65 - 99 mg/dL Final Comment: Performed by [facility] [address] [place] [address] 12/09/2018 18:05 113 (H) 70 - 109 [...] this chart may have been created with [employer] voice recognition software. Occasi onal wrong-word or [...] Tilley 73 y.o. 1945 Med. Record Number: [id number] Date of admission: 03/24/2019 Patient admitted with [...] Electronically signed by: Jesus Whitney, 03/29/2019 7:35 [facility] zech, Carolina Kearney RN - 03/28/2019 7:08 PM [id number] - Report called to [facility] LISA. Pt's belongings . I pad and I phone w/ chargers as well as pt's purse, and shoes, and shirt and pants all sent with her to [address] [place] [address]. Pt had been sitting up eating dinner. [...] for time spent with her. Noti fied [address] [place] [address] RN of pt's recent loss. Transferred at [...] with a history of stroke transferred from [facility] for evaluation of T11-T12 lesion noted on [...] Single Lumen 03/24/19 2143 Left Lateral Forearm rskj-ugj-oonzyb daniel ter system 20 gauge;1 1/4 in [...] - 99 mg/dL Final Comment: Performed by [facility] [address] [place] [address] 03/28/2019 07:09 75 65 - 99 mg/dL Final Comment: Performed by [facility] [address] [place] [address] 03/27/2019 20:38 109 (H) 65 - 99 mg/dL Final Comment: Performed by [facility] [address] [place] [address] 12/09/2018 18:05 113 (H) 70 - 109 [...] this chart may have been created with [employer] voice recognition software. Occasi onal wrong-word or sound-alike substitutions may have occurred due to the inherent mckeon itations of voice recognition software. Please read the chart carefully and recognize, using context, where these substitutions have occurred Cordell Mcgarry, [facility] - 03/28/2019 2:57 PM PDTSOCIAL WORK D/C PLAN: SNF: [facility] NEXT STEPS: Await bed availability INTERVENTION: On-going dc planning. Rec'd update from [facility]. They confirm they have r ec'd clinical notes and are currently reviewing. SW will follow. ASSESSMENT/CHART REVIEW:73 yr old femalewith a history of ESRD on hemodialysis, hypertens ion, type 2 diabetes, hypothyroidism,chronic anemia,hyperlipidemia, hx of stroke [facility] noted on MRI concerning fo r osteomyelitis. SW met with pt's sister, Yina, and her cousin, Keri, who were waiting in pt's room while s he was in dialysis. SW will need to follow up with pt re: d/c planning. Pt's sister and co in related that pt mostly lives at Yina's house outside [facility], but does not like to be tied down because she enjoys attending [place] festivals and many events. She does atten d dialysis weekly. Pt has a vehicle and is very independent. D/C TRANSPORT: tbd BARRIERS TO D/C: none CONTACTS: Yina La: sister India Tilley: sister [facility]ili [facility]: [phone] fax: [phone] [facility] [phone] illum, Mario Alberto morales MD - 03/28/2019 7:34 AM PDTFormatting of this note might be different from the maynor rollins Infectious Diseases Progress Note Pt. Name/Age/: Estefani Jimenez Jarek 73 y.o. 1945 Med. Record Number: [id number] Date of admission: 03/24/2019 Patient admitted with [...] Electronically signed by: Carlos Jansen, 03/28/2019 7:34 [facility] Katey Solis MD - 03/27/2019 8:58 PM PDT Patient: Estefani Tilley Date of : 1945 Admit Date: 03/24/2019 Date of Service: 03/27/2019 PCP: Francisca Womack PA-C Hospital Day: Hospital Day: 4 Hospital Course: 73-year-old female with history of ESRD on hemodialysis, hypertension, type 2 diabetes, hyp othyroidism, chronic anemia, hyperlipidemia with a history of stroke transferred from [facility] for evaluation of T11-T12 lesion noted on MRI concerning for osteomyeliti s. Infectious disease consulted. Status post aspiration from her thoracic spine, Gram stain negative, cultures pending. Rosemary ent started on empiric vancomycin and cefepime. Will need 6 weeks of IV antibiotics. Discussed with nephrology, recommend placement of Tillman catheter instead of PICC line for jail IV antibiotics. Nephrology following for maintenance hemodialysis. 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 Pain management -trial of [...] Single Lumen 03/24/19 2143 Left Lateral Forearm dxbe-xyv-leviqb daniel ter system 20 gauge;1 09/16 in [...] - 99 mg/dL Final Comment: Performed by [place] [address] [facility] [place] [address] 03/27/2019 13:58 82 65 - 99 mg/dL Final Comment: Performed by [place] [address] [facility] [place] [address] 03/27/2019 06:39 83 65 - 99 mg/dL Final Comment: Performed by [place] [address] [facility] [place] [address] 12/09/2018 18:05 113 (H) 70 - 109 [...] this chart may have been created with [employer] voice recognition software. Occasi onal wrong-word or sound-alike substitutions may have occurred due to the inherent mckeon itations of voice recognition software. Please read the chart carefully and recognize, using context, where these substitutions have occurred arlin Diaz, [facility] - 03/27/2019 3:17 PM PDTSOCIAL WORK D/C PLAN: SNF: [facility] NEXT STEPS: Await bed availability INTERVENTION: Rec'd call from Emili at [facility]. She states the contracted f acility near pt's home is [facility]. Spoke with pt and with sister India. Ref[facility] and (-) [facility] Copy of Pasrr placed in light chart with request to file into jos rds. SW will follow. ASSESSMENT/CHART REVIEW:73 yr old femalewith a history of ESRD on hemodialysis, hypertens ion, type 2 diabetes, hypothyroidism,chronic anemia,hyperlipidemia, hx of stroke [facility] noted on MRI concerning fo r osteomyelitis. SW met with pt's sister, Yina, and her cousin, Keri, who were waiting in pt's room while s he was in dialysis. SW will need to follow up with pt re: d/c planning. Pt's sister and co in related that pt mostly lives at Yina's house outside [place], [place], but does not like to be tied down because she enjoys attending [place] festivals and many events. She does atten d dialysis weekly. Pt has a vehicle and is very independent. D/C TRANSPORT: tbd BARRIERS TO D/C: none CONTACTS: Yina La: sister India Tilley: sister [facility]: [phone] fax: [phone] [facility] [phone] Gregg Mcgarry LICSW - 03/27/2019 2:17 PM PDTFormatting of this note might be different from jerald more. SOCIAL WORK D/C PLAN: SNF NEXT STEPS: SW to follow up with pt regarding SNF preference INTERVENTION: On-going dc planning, chart reviewed and met with pt. Discussed need of jail IV abx, Discussed options. Provided list of [...] pt mostly lives at Yina's house outside [facility], [place], but does not like to be tied down because she enjoys attending [place] festivals and many events. She does atten d dialysis weekly. Pt has a vehicle and is very independent. ASSESSMENT/CHART REVIEW:73 yr old femalewith a history of ESRD on hemodialysis, hypertens ion, type 2 diabetes, hypothyroidism,chronic anemia,hyperlipidemia, hx of stroke [facility] noted on MRI concerning fo r osteomyelitis. D/C TRANSPORT: tbd BARRIERS TO D/C: none CONTACTS: Yina La Sister [phone] India Tilley Sister [phone] Irish Cadet, Twister Tender Paper - 03/27/2019 1:33 PM PDTFormatting of this [...] Vancomycin Protocol Electronically signed by: Aimee Carroll, Twister Tender Paper 03/27/2019 13:33Electronically si gned by Ray Joel, PharmD at 03/27/2019 2:04 PM PDT Associated attestation - Ray Joel PharmD - 03/27/2019 2:04 PM PDTI reviewed and agr ee with the assessment and plan. Ray Joel, PharmD 03/27/2019 14:04 Randy Corrigan MD - 03/27/2019 10:52 AM PDT [facility] INPATIENT ROUNDING NOTE Date of Service: 03/27/2019 Rounding Physician: Randy Corrigan MD Patient Name: Estefani Tilley : 1945 Medical Record: [id number] Hospital Summary: Estefani Tilley is a 73 [...] Tilley 73 y.o. 1945 Med. Record Number: [id number] Date of admission: 03/24/2019 Patient admitted with [...] Electronically signed by: Carlos Jansen, 03/27/2019 7:10 [facility] Katey Solis MD - 03/26/2019 5:40 PM PDT Patient: Estefani Tilley Date of : 1945 Admit Date: 03/24/2019 Date of Service: 03/26/2019 PCP: Francisca Womack PA-C Hospital Day: Hospital Day: 3 Hospital Course: 73-year-old female with history of ESRD on hemodialysis, hypertension, type 2 diabetes, hyp othyroidism, chronic anemia, hyperlipidemia with a history of stroke transferred from [facility] [place] for evaluation of T11-T12 lesion noted on [...] Single Lumen 03/24/19 2143 Left Lateral Forearm mxsy-isi-upxnpw daniel ter system 20 gauge;1 1/4 in [...] - 99 mg/dL Final Comment: Performed by [facility] [address] [place] [address] 03/26/2019 06:49 116 (H) 65 - 99 mg/dL Final Comment: Performed by [facility] [address] [place] [address] 03/25/2019 20:37 110 (H) 65 - 99 mg/dL Final Comment: Performed by [facility] [address] [place] [address] 12/09/2018 18:05 113 (H) 70 - 109 [...] this chart may have been created with [employer] voice recognition software. Occasi onal wrong-word or sound-alike substitutions may have occurred due to the inherent mckeon itations of voice recognition software. Please read the chart carefully and recognize, using context, where these substitutions have occurred [facility] R [facility]ident - 03/26/2019 10:52 AM [...] mg/dL (H)). Lab Results Component Value Date/Time VANCPINEHURSTNDOM 20.2 03/26/2019 04:11 I/O last 3 completed shifts: In: 70 [I.V.:15; IV Piggyback:55] Out: - I/O this shift: In: - Out: 1 [Urine:1] Micro/Cultures: BCx - NGTD, BiopsyCx - NGTD Per P&T-approved Vancomycin Protocol Electronically signed by: Jose Menard, Twister Tender Paper 03/26/2019 10:52 su, Randy Nunez MD - 03/26/2019 1 0:38 AM PDT [facility] INPATIENT ROUNDING NOTE Date of Service: 03/26/2019 Rounding Physician: Randy Corrigan MD Patient Name: Estefani Tilley : 1945 Medical Record: [id number] Hospital Summary: Estefani Tilley is a 73 [...] Jarek 73 y.o. 1945 Med. Record Number: [id number] Date of admission: 03/24/2019 Patient admitted with [...] Electronically signed by: Carlos Jansen, 03/26/2019 8:03 [facility] Katey Solis MD - 03/25/2019 3:50 PM PDT Patient: Estefani Tilley Date of : 1945 Admit Date: 03/24/2019 Date of Service: 03/25/2019 PCP: Francisca Womack PA-C Hospital Day: Hospital Day: 2 Hospital Course: 73-year-old female with history of ESRD on hemodialysis, hypertension, type 2 diabetes, hyp othyroidism, chronic anemia, hyperlipidemia with a history of stroke transferred from [facility] for evaluation of T11-T12 lesion noted on [...] Single Lumen 03/24/19 2143 Left Lateral Forearm xvji-brv-agoglx daniel ter system 20 gauge;1 1/4 in [...] - 99 mg/dL Final Comment: Performed by [facility] [address] [place] [address] 03/25/2019 06:52 107 (H) 65 - 99 mg/dL Final Comment: Performed by [facility] [address] [place] [address] 03/24/2019 20:11 112 (H) 65 - 99 mg/dL Final Comment: Performed by [facility] [address], [place] [address] 12/09/2018 18:05 113 (H) 70 - 109 [...] this chart may have been created with [employer] voice recognition software. Occasi onal wrong-word or sound-alike substitutions may have occurred due to the inherent mckeon itations of voice recognition software. Please read the chart carefully and recognize, using context, where these substitutions have occurred su, Randy Nunez MD - 0 03/25/2019 1:47 PM PDT [facility] INPATIENT ROUNDING NOTE Date of Service: 03/25/2019 Rounding Physician: Randy Corrigan MD Patient Name: Estefani Tilley : 1945 Medical Record: [id number] Hospital Summary: Estefani Tilley is a 73 [...] signed by: Trace Corrigan MD, 03/25/2019, 13:47 Nan Cheney MSW - [...] pt mostly lives at Yina's house outside [place], [place], but does not like to be tied down because she enjoys attending [place] festivals and many events. She does atten d dialysis weekly. Pt has a vehicle and is very independent. ASSESSMENT/CHART REVIEW:73 yr old femalewith a history of ESRD on hemodialysis, hypertens ion, type 2 diabetes, hypothyroidism,chronic anemia,hyperlipidemia, hx of stroke [facility] lesion noted on MRI concerning fo r osteomyelitis. D/C TRANSPORT: tbd BARRIERS TO D/C: none CONTACTS: Yina La Sister [phone] India Tilley Sister [phone] Carlos Gonzales M D - 03/25/2019 8:34 AM PDT Infectious Diseases Progress Note Pt. Name/Age/: Estefani Tilley 73 y.o. 1945 Med. Record Number: [id number] Date of admission: 03/24/2019 Patient admitted with [...] Electronically signed by: Carlos Jansen, 03/25/2019 8:34 [facility] Jose Gamez, Twister Tender Paper - 03/24/2019 10:46 PM PDTFormatting of this [...] Vancomycin Protocol Electronically signed by: Jose Menard, Twister Tender Paper 03/24/2019 22:46 Gladys Daugherty MSW - 9 [...] pt mostly lives at Yina's house outside [place], [place], but do es not like to be tied down because she enjoys attending [place] festivals and many events. She does attend dialysis weekly. Pt has a vehicle and is very independent. ASSESSMENT/CHART REVIEW:73 yr old female with a history of ESRD on hemodialysis, hypertensi on, type 2 diabetes, hypothyroidism, chronic anemia, hyperlipidemia, hx of stroke transferre d from [facility] for evaluation of T11-T12 lesion noted on MRI concerning for ost eomyelitis. D/C TRANSPORT: tbd BARRIERS TO D/C: none CONTACTS: Yina La Sister [phone] India Tilley Sister [phone] Katey Solis MD - 03/24/2019 3:53 PM PDTPatient seen and examined. Chart reviewed. Briefly, 73-year-old female with history of ESRD on hemodialysis, hypertension, type 2 diab etes, hypothyroidism, chronic anemia, hyperlipidemia with a history of stroke transferred fr [facility] [place] for evaluation of T11-T12 lesion noted on [...] not have any p raza, consider antidepressants. kettle worker consulted for concerns for housing concerns [...] 1250 mg IV once given 03/23 @ 7676 at [facility]. 2. [employer] Trough: 15-20 mcg/ml 3. ESRD [...] Procedure Component Value Units Date/Time Culture, Blood [[id number]] Collected: 03/23/192332 Order Status: Sent Lab Status: In process Updated: 03/23/192348 Specimen: Blood Culture, Blood [[id number]] Collected: 03/23/192254 Order Status: Sent Lab Status: [...] anemia, hyperlipidemia, hx of stroke transferred from [facility] for evaluation of T11-T12 lesion noted on [...] M, w and F HD sessions in [place], [place] Last HD session Wednesday Will call [...] stroke on aspirin , pt lives in [place], [place]. She presented to [facility] yesterday complaining of 6 days of severe [...] the spine for further evaluation. Answered to [facility] for IR procedure. Patient reports that she [...] (HCC) Diabetes (HCC) Heart disease Hemodialysis patient ([facility]) mon-wed-fri History of blood clots Hypercholesteremia Hypertension Hypothyroidism Renal failure Seasonal allergies Past Surgical History: Procedure Laterality Date APPENDECTOMY EYE SURGERY 2009 HIP SURGERY Right 12/04/2018 Procedure: ORIF HIP W/CANNULATED SCREWS; Surgeon: Scott Koroma MD; Location: [facility] MAIN OR HYSTERECTOMY MASTECTOMY 2006 left ear NOSE SURGERY 2009 REMOVAL TUNNELED CATHETER Right 04/04/[address] Stephenson SHUNT PLACEMENT/INSERTION N/A 11/08/2017 Procedure: Tunneled Hemodialysis Catheter Placement; Surgeon: Nora Leo MD; Location : [facility] MAIN OR SHUNT PLACEMENT/INSERTION Right 02/04/2018 Procedure: INSERTION SHUNT HEMODIALYSIS W/ PERMACATH; Surgeon: Heather Navarro MD; L ocation: [facility] MAIN OR VEIN SURGERY Right 01/04/2018 Procedure: Right Transposed Basilic Vein to Proximal Radial Artery; Surgeon: Santos Stephenson MD, FACS; Location: [facility] MAIN OR Social History Socioeconomic History [...] on file COMMENTS- Never smoker, lives in [place], [place]. Reports living in her car most [...] or hilar lymphadenopathy. LUNGS:There is a smal w-as-jtkkbtrd layering left pleural effusion. There is atelectasis [...] this chart may have been created with [employer] voice recognition software. Occasi onal wrong-word or [...] Corrigan MD - 03/24/2019 9:31 AM PDT [facility] Nephrology Consultation Patient Name: Estefani Tilley : 1945 Medical Record: [id number] DATE OF SERVICE: 03/24/2019 CONSULTING PHYSICIAN: Trace [...] (HCC) Diabetes (HCC) Heart disease Hemodialysis patient ([facility]) wed-wed-wed History of blood clots Hypercholesteremia Hypertension Hypothyroidism Renal failure Seasonal allergies Stroke (cerebrum) ([facility]) CURRENT MEDICATIONS Scheduled Meds: aspirin 81 [...] effort i s made to edit content, art museum aide errors may occur. If there are any [...] her local facility and then transferred to [facility] in [place] . CT scan was suggestive of T11-T12 [...] (HCC) Diabetes (HCC) Heart disease Hemodialysis patient ([facility]) wed-wed-wed History of blood clots Hypercholesteremia Hypertension Hypothyroidism Renal failure Seasonal allergies Stroke (cerebrum) ([facility]) Past Surgical History: Procedure Laterality Date APPENDECTOMY EYE SURGERY 2009 HIP SURGERY Right 12/04/2018 Procedure: ORIF HIP W/CANNULATED SCREWS; Surgeon: Scott Koroma MD; Location: [facility] MAIN OR HYSTERECTOMY MASTECTOMY 2005 left ear NOSE SURGERY 2008 REMOVAL TUNNELED CATHETER Right 04/04/[address] Stephenson SHUNT PLACEMENT/INSERTION N/A 11/08/2017 Procedure: Tunneled Hemodialysis Catheter Placement; Surgeon: Nora Leo MD; Location : [facility] MAIN OR SHUNT PLACEMENT/INSERTION Right 02/04/2018 Procedure: INSERTION SHUNT HEMODIALYSIS W/ PERMACATH; Surgeon: Heather Navarro MD; L ocation: [facility] MAIN OR VEIN SURGERY Right 01/04/2018 Procedure: Right Transposed Basilic Vein to Proximal Radial Artery; Surgeon: Santos Stephenson MD, FACS; Location: [facility] MAIN OR Patient Active Problem List [...] Value Ref Range Procalcitonin 0.23 <=0.50 ng/mL [facility] Basic Metabolic Panel Result Value Ref Range [...] or hilar lymphadenopathy. LUNGS:There is a smal r-jc-crdxlddg layering left pleural effusion. There is atelectasis [...] (140 lb 3.4 oz) Energy Calorie Requirements: 8794-1240(REE x 1.2-1.4) Range Gm Protein (gm): 55-85 [...] nd stooling patterns Tiffany Herrera MS, RD [phone] DATE/TIME: 03/31/2019 16:12 lan of Genevieve Gama RN - 03/31/2019 2:57 PM PDTShift Summary: Pt off the floor most of the day for HD. REY fistula, R IJ CVC, flushing w/o difficulty. A& O, up with 1 assist. Pt to d/c home to [place] this afternoon after [employer] teach es family about IV abx administration. Receives oxycodone 5-10mg for chronic back pain. Campbell es N/V/D. VSS. ACHS CS WNL. lan of Calli Delgado Dietary SmartBIM - 03/31/2019 1:36 PM PDTFormattin g of this note might be different from the original. ASSOCIATE DATA SCIENTIST MENU ASSISTANCE FOLLOW-UP NOTE INTERVENTIONS: 1. Continue [...] as needed. Electronically signed by: Lorna Lima V-me MediaClinical 03/31/2019 13:37 NF Transfer - Michelle Obando DO - 03/31/2019 10:26 AM PDT SNF FACILITY TRANSFER ORDERS Patient Name: Estefani Tilley Patient : 1945 Gender: female Date of Admission: 03/24/2019 Date of Discharge: 03/31/2019 Admitting Provider: Erlinda Simon MD Discharging Provider: Michelle Lopez DO Consultants: Nephrology, ID PCP: Francisca Womack SNF transferring to: [facility] Provider after transfer: Facility Provider CODE STATUS: [x] Attempt CPR [] Do not resuscitate If patient is pulseless and not breathing, RN/PRINTER'S DEVIL may pronounce . Advanced Directives included: [] [...] INFLUENZA QUADR W/PRES (PED/ADOL/ADULT) MULTIDOSE 06/27/2014 INFLUENZA, [id number], UNSPECIFIED 08/28/2009 INFLUENZA, UNSPECIFIED FORMULATION 06/20/2013 PNEUMOCOCCAL CONJUGATE 13-VALENT (PCV13) 02/12/2016 PNEUMOCOCCAL POLYSACCHARIDE 23-VALENT (PPSV23) 07/30/2011 TD PF (2 LF TETANUS) (ADOL/ADULT) 06/22/2002 TDAP, (ADOL/ADULT) 06/17/2010, 06/17/2010 ZOSTER, 1 DOSE (ZOSTAVAX) 01/28/2012 Diet: [] As tolerated FIBERGLASS PIPE COVERING SUPERVISOR may upgrade or downgrade diet as condition Indicates. [] RN may downgrade diet as indicated. Type: [x] Continue current diet of: Diet and Supplements Diet Diet general; Effective Now Number of Occurrences: Until Specified Order Questions: Type Diet general [] Other: Consistency/Precautions: [] Whole [] Thin Liquids [] Cut-up [] [place] Thick [] Advanced Chopped [] Honey Thickened [] Chopped [] Advanced Ground [] 1:1 feedings [] Ground/Pureed [] Other: Tube Feedings: [] PEG [] GT [] JT [] NGT [] Formula type: (Enrollment Manager may change/substitute if indicated). [] Continuous Rate: [...] [] OT Evaluation & Management for: [] FIBERGLASS PIPE COVERING SUPERVISOR Evaluation &Management for: [] Other: Wound/Skin Care: [...] Michelle ESCALANTE DO, certify that post hospital senior care care is medically neces shar on a continuing basis for any of the conditions for which he/she received care during t his hospitalization. Check one: [x] Skilled [] Intermediate Additional Orders/Instructions: Physician's signature: 03/31/2019 10:26 [facility] NURSING FACILITY USE ONLY: [] Admitting orders [...] intention has depression wishful of Monitoring Requirements [facility] Suicide Policy [facility] Suicide Risk/Telesitter Screening Utilizing this [...] tomorrow, tunneled cath General diet AO IND [id number] signed by Rayna Ochoa RN at 03/30/2019 [...] intention has depression wishful of Monitoring Requirements [facility] Suicide Policy [facility] Suicide Risk/Telesitter Screening Utilizing this [...] of meals x 6 days. Will send [facility] h meals. Nutrition History Obtained? No Nutrition [...] (based on estimated dry wt: 65.50 kg) [place] Body Weight: 63.64 kg Usual Body Weight: See Epic weight hx; Weight History Per [facility] Records: 11/01/17: 87.20 k 04/04/18: 76.20 [...] nd stooling patterns Tiffany Herrera MS, RD [phone] DATE/TIME: 03/30/2019 10:22 lan of Care - [...] intention has depression wishful of Monitoring Requirements [facility] Suicide Policy [facility] Suicide Risk/Telesitter Screening Utilizing this [...] m ight be different from the original. Fur Cleaner Clinical Nutrition Follow-up Note Nutrition Interventions: Referred [...] today. Rt chest tunneled picc line for jail antibiotic therapy. Antibioti cs due after dialysis today. Electronically signed by: Maribell Ji RN 03/29/2019 13:07 lan of Huan Cai RN - 03/29/2019 4:14 AM PDT Nursing Handoff Note Room# 501/501-02 Isolation:None Code Status: Full Code Item for self pay representative Comments Shift Summary: Hx Breast CA, ESRD, [...] Dietary Tech-Clinical - 03/28/2019 4:44 PM PDT ASSOCIATE DATA SCIENTIST CLINICAL NUTRITION NOTE NUTRITION PROBLEMS: 1. Inadequate [...] 3:05 PM PDT Melvin PARIS OPERATIVE NOTE [facility] Pt. Name/Age/: Estefani Tilley 73 y.o. 1945 Med. Record Number: [id number] Date of admission: 03/24/2019 Date of Operation/Procedure: 03/28/2019 Preoperative Diagnosis: need for iv access Postoperative Diagnosis: Same Surgeon: Juan Choi MD, PGY-4 Frame Fixer: None Anesthesia Provider(s): No anesthesia staff entered. [...] 03/28/2019, 15:05 edation Documentation - Sudhir Brandon Assistant Chief Engineer - 03/28/2019 2:58 PM PDTTunnelled Power Line [...] Room # 836/836-01 ISO: None Item for self pay representative Comments Shift Summary: Include Pain RX BP [...] or Bedside Sitter Discharge plan Patient/Family Goals [facility]. C-SSRS Since you were last asked, have [...] intention has depression wishful of Monitoring Requirements [facility] Suicide Policy [facility] Suicide Risk/Telesitter Screening Utilizing this [...] Room # 836/836-01 ISO: None Item for self pay representative Comments Shift Summary: Include Pain RX BP within ordered parameters? Stroke pt?:Depression screen Day 2 Took over patient care from 7240-9013. BP peaked and PRN was administered with [...] intention has depression wishful of Monitoring Requirements [facility] Suicide Policy [facility] Suicide Risk/Telesitter Screening Utilizing this [...] Nursing Progress Note Patient Name: Estefani Jimenez [place] Room # 836/836-01 ISO: None Item for self pay representative Comments Shift Summary: Include Pain RX BP within ordered parameters? Stroke pt?:Depression screen Day 2 Patient here for possible osteomyelitis of T11-T12. A/O X4. Cooperative with care today. Had dialysis from 6909-0314. AM medications held and given when pt [...] intention has depression wishful of Monitoring Requirements [facility] Suicide Policy [facility] Suicide Risk/Telesitter Screening Utilizing this [...] of town Plan: SNF la n of [facility] Radha Haddad RN - 03/27/2019 1:17 AM PDT 8N & 8S Nursing Progress Note Patient Name: Estefani Tilley Room # 836/836-01 ISO: None Item for self pay representative Comments Shift Summary: Include Pain RX BP [...] intention has depression wishful of Monitoring Requirements [facility] Suicide Policy [facility] Suicide Risk/Telesitter Screening Utilizing this [...] 6:41 PM PDTAssumed care of pt from 7406-2274. Pt here wi th thoracic discitis, possible [...] Room # 836/836-01 ISO: None Item for self pay representative Comments Shift Summary: Include Pain RX BP within ordered parameters? Stroke pt?:Depression screen Day 2 Assumed care from 6199-2092. 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 [...] intention has depression wishful of Monitoring Requirements [facility] Suicide Policy [facility] Suicide Risk/Telesitter Screening Utilizing this [...] Room # 836/836-01 ISO: None Item for self pay representative Comments Shift Summary: Include Pain RX BP [...] to do assessment. Refused labs from the lab clerk until this nurse came and educated patient [...] intention has depression wishful of Monitoring Requirements [facility] Suicide Policy [facility] Suicide Risk/Telesitter Screening Utilizing this [...] Room # 836/836-01 ISO: None Item for self pay representative Comments Shift Summary: Include Pain RX BP [...] wishful of Monitoring Requirements [facility] Suicide Policy [facility] Suicide Risk/Telesitter Screening Utilizing this [...] of Care - Met tleashwini, Nan Jimenez CYTOLOGY TECHNOLOGIST - 03/25/2019 7:58 AM PDTReferral for housing concernsElectronically sig javi by JENNIFER Xavier at 03/25/2019 7:59 AM PDTPlan of Care - Kitrachel, Radha Casper RN - 03/25/2019 3:03 AM PDT 8N & 8S Nursing Progress Note Patient Name: Estefani Tilley Room # 836/836-01 ISO: None Item for self pay representative Comments Shift Summary: Include Pain RX BP [...] wishes she was n't alive. Monitoring Requirements [facility] Suicide Policy [facility] Suicide Risk/Telesitter Screening Utilizing this [...] Room # 836/836-01 ISO: None Item for self pay representative Comments Shift Summary: Include Pain RX BP within ordered parameters? Stroke pt?:Depression screen Day [address] guided bx of T11, T12. HD this afternoon and [facility]. R arm fistula wnl. IV ABX. [...] Goals C-SSRS Monitoring Requirements [facility] Suicide Policy [facility] Suicide Risk/Telesitter Screening Utilizing this [...] PDTDischarge Planning: Received a telephone call from [facility] RN @ [facility] [phone]. Informed Emili that this patient was transferred to [facility]. Electronically signed by: Michelle Jackson 03/24/2019 8:45 lan of Ginger Poe RN - 03/24/2019 5:28 AM PDTFormatting of this note might be different from the o riginal. 8N & 8S Nursing Progress Note Patient Name: Estefani Tilley Room # 836/836-01 ISO: None Item for self pay representative Comments Shift Summary: Include Pain RX BP within ordered parameters? Stroke pt?:Depression screen Day 2 Pt admitted from hospital in [place] via [facility] at 0100. S/p c/o severe [...] Pending C-SSRS Monitoring Requirements [facility] Suicide Policy [facility] Suicide Risk/Telesitter Screening Utilizing this [...] | [facility] | | | POC | [facility] [address], | | SACRED | | | | [place] [address] | | HEART | | | |Performed by [facility] [address], [place] [address] | | MEDICAL | | | | [...] + + | BETH [facility] | [address] | [place] [address] | | | [facility] | | | | | [...] | [facility] | | | POC | [facility] [address], | | SACRED | | | | [place] [address] | | HEART | | | |Performed by [facility] [address], [place] [address] | | MEDICAL | | | | [...] + + | [facility] | [address] | [place] [address] | | | [facility] | | | | | [...] | | LABORATORY | | | | [facility] [address] [place], | | [place] | | | | [place] [address] | | | | + + + + + + + + | Specimen | + + | Blood specimen | | (specimen) | + + + + + + + | Performing | Address | City/State/Zipcode | Phone Number | | Organization | | | | + + + + + | BETH ILZ | [address] | [place] [address] | | | [facility] | | | | | [...] ENCE | | | Immature | by [facility] [address], | K/uL | SACRED | | | Granulocyte | [place] [address] | | HEART | | | s |Performed by [facility] [address], [place] [address] | | MEDICA L | | | [...] + + | BETH LIZ | [address] | [place] [address] | | | [facility] | | | | | [...] by | | | | | | [facility] [address], | | | | | | [place] [address] | | | | + + + + + + + + | Specimen | + + | Blood specimen | | (specimen) | + + + + + + + | Performing | Address | City/State/Zipcode | Phone Number | | Organization | | | | + + + + + | PROVIDERENUKA LIZ | [address] | [place] [address] | | | [facility] | | | | | [...] | | | POC | Performed by [facility] [address] | | SACREVANS | | | | [address] [place] | | HEART | | | | [address] | | MEDICAL | | | | [...] + + | BETH LIZ | [address] | [place] [address] | | | [facility] | [...] | | | POC | Performed by [facility] [address] | | SACRED | | | | [address] [place], [place] | | HEART | | | | [address] | | MEDICAL | | | | [...] [address] | [place] [address] | | | [facility] | | | | | [...] | | | POC | Performed by [facility] [address] | | SACRED | | | | [address], [place] | | HEART | | | | [address] | | MEDICAL | | | | [...] [address] | [place] [address] | | | [facility] | [...] | | | POC | Performed by [facility] [address] | | SACRED | | | | [address] [place], [place] | | HEART | | | | [address] | | MEDICAL | | | | [...] + + | BETH LIZ | [address] | [place] [address] | | | [facility] | | | | | [...] PROVIDE NCE | | | | by [facility] [address], | | SACRED | | | | [place] [address] | | HEART | | | |Performed by [facility] [address], [place] [address] | | MEDICAL | | | | [...] + + | BETH LIZ | [address] | [place], [place] | | | [facility] | | | | | [...] LUIS CE | | | | by [facility] [address] [facility] [address], | | SACRED | | | | [place], [place] | | HEART | | | |Performed by [facility] [address] [facility] [facility] [address], [place] | | MEDICAL | | | [...] + + | BETH LIZ | [address] | [place] [address] | | | [facility] | | | | | LABORATORY [...] | | LABORATORY | | | | [facility] [address], | | [place] | | | | [place] [address] | | | | + + + + + + + + | Specimen | + + | Blood specimen | | (specimen) | + + + + + + + | Performing | Address | City/State/Zipcode | Phone Number | | Organization | | | | + + + + + | [facility] | [address] [facility] [address] [facility] [address] | [place] [address] | | | [facility] | | | | | [...] ENCE | | | Counted | by [facility] [address], | | SACRED | | | | [place] | | HEART | | | |Performed by [facility] [address], [place] | | MEDICA L | | [...] + + | [facility] | [address] | [place], [place] | | | HEART [facility] | | | | | LABORATORY [...] | | | POC | Performed by [facility] [address] | | SACRED | | | | [address] [place] | | HEART | | | | [address] | | MEDICAL | | | | [...] + + | BETH LIZ | [address] | [place] [address] | | | [facility] | | | | | [...] | PROVID[facility] | | | POC | [facility] [address], | | SACRED | | | | [place] [address] | | HEART | | | |Performed by [facility] [address], [place] [address] | | MEDICAL | | | | [...] + | [facility] | [address] [facility] [address] [facility] [address] | [place] [address] | | | [facility] | | | | | LABORATORY [...] | | | POC | Performed by [facility] [address] | | SACRED | | | | [address], [place] | | HEART | | | | [address] | | MEDICAL | | | | [...] + + | BETH LIZ | [address] | [place] [address] | | | [facility] | | | | | [...] | [facility] | | | POC | [facility] [address] [facility] [address], | | SACRED | | | | [place] [address] | | HEART | | | |Performed by [facility] [address] [facility] [address] [facility] [facility] [address], [place] [address] | | MEDICAL | | | | [...] + | BETH LIZ | [address] [facility] [address] | [place] [address] | | | [facility] | | | | | [...] by | | | | | | [facility] [address], | | | | | | [place] [address] | | | | + + + + + + + + | Specimen | + + | Blood specimen | | (specimen) | + + + + + + + | Performing | Address | City/State/Zipcode | Phone Number | | Organization | | | | + + + + + | [facility] | [address] | [place] [address] | | | [facility] | | | | | [...] ENCE | | | Counted | by [facility] [address], | | SACRED | | | | [place] [address] | | HEART | | | |Performed by [facility] [address] [facility] [facility] [address], [place] [address] | | MEDICA L | | | [...] + | [facility] | [address] | [place] | | | [facility] [...] LUIS CE | | | | by [facility] [address], | | SACRED | | | | [place] [address] | | HEART | | | |Performed by [facility] [address], [place] [address] | | MEDICAL | | | | [...] + + | BETH LIZ | [address] | [place] [address] | | | [facility] | | | | | [...] | | LABORATORY | | | | [facility] [address], | | [place]ES[place] | | | | [place] [address] | | | | + + + + + + + + | Specimen | + + | Blood specimen | | (specimen) | + + + + + + + | Performing | Address | City/State/Zipcode | Phone Number | | Organization | | | | + + + + + | [facility] | [address] | [place] [address] | | | [facility] | | | | | [...] | | | POC | Performed by [facility] [address] | | SACRED | | | | [address] [place] | | HEART | | | | [address] | | MEDICAL | | | | [...] + + | BETH LIZ | [address] | [place] [address] | | | [facility] | | | | | [...] | | | POC | Performed by [facility] [address] | | SACRED | [...] [address] | [place] [address] | | | [facility] | [...] | [facility] | | | POC | [facility] [address], | | SACRED | | | | [place] [address] | | HEART | | | |Performed by [facility] [address], [place] [address] | | MEDICAL | | | | [...] + | JIMJOSE ADora LIZ | [address] | [place] [address] | | | [facility] | | | | | [...] | | LABORATORY | | | | [facility] [address], | | [place] | | | | [place] [address] | | | | + + + + + + + + | Specimen | + + | Blood specimen | | (specimen) | + + + + + + + | Performing | Address | City/State/[facility] | Phone Number | | Organization | | | | + + + + + | BETH LIZ | [address] | [place] [address] | | | [facility] | | | | | [...] PROVID ENCE | | | | by [facility] [address], | | SACRED | | | | [place] | | HEART | | | |Performed by [facility] [address], [place] | | MEDICA L | | [...] SACRED | [address] | [place], [place] | | | [facility] | | | | | [...] | | | POC | Performed by [facility] [address] | | SACRED | | | | [address] [place] | | HEART | | | | [address] | | MEDICAL | | | | [...] + | BETH LIZ | [address] [facility] [address] [facility] [address] | [place] [address] | | | [facility] | | | | | [...] | | | POC | Performed by [facility] [address] | | SACRED | | | | [address], [place] | | HEART | | | | [address] | | MEDICAL | | | | [...] [address] | [place] [address] | | | [facility] | | | | | [...] | PROVIDENCE | | | POC | [facility] [address], | | SACRED | | | | [place] [address] | | HEART | | | |Performed by [facility] [address], [place] [address] | | MEDICAL | | | | [...] + + | JIMRENUKA LIZ | [address] | [place] [address] | | | [facility] | | | | | [...] | PROVIDENCE | | | POC | [facility] [address], | | SACRED | | | | [place] [address] | | HEART | | | |Performed by [facility] [address], [place] [address] | | MEDICAL | | | | [...] + + | BETH LIZ | [address] | [place] [address] | | | [facility] | | | | | [...] by | | | | | | [facility] [address], | | | | | | [place] [address] | | | | + + + + + + + + | Specimen | + + | Blood specimen | | (specimen) | + + + + + + + | Performing | Address | City/State/Zipcode | Phone Number | | Organization | | | | + + + + + | BETH LIZ | [address] | [place] [address] | | | [facility] | | | | | [...] | | | POC | Performed by [facility] [address] | | SACRED | | | | [address], [place] | | HEART | | | | [address] | | MEDICAL | | | | [...] + | JIMJOSE ADora LIZ | [address] | [place] [address] | | | [facility] | | | | | [...] | | | POC | Performed by [facility] [address] | | SACRED | | | | [address] [place] | | HEART | | | | [address] | | MEDICAL | | | | [...] + + | BETH LIZ | [address] | [place] [address] | | | [facility] | | | | | [...] | | | POC | Performed by [facility] [address] | | SACRED | | | | [place] | | HEART | | | | [address] | | MEDICAL | | | | [...] | JIMJOSE ADora AGUSTO | [address] [facility] [address] | [place] [address] | | | [facility] | | | | | [...] PROVIDENCE | | | | Performed by [facility] [address] | | SACRED | | | | [address] [place] | | HEART | | | | [address] | | MEDICAL | | | | [...] [address] | [place] [address] | | | [facility] | | | | | [...] | | | POC | Performed by [facility] [address] | | SACREVANS | | | | [address] [place], [place] | | HEART | | | | [address] | | MEDICAL | | | | [...] + + | BETH LIZ | [address] | [place] [address] | | | [facility] | | | | | [...] by | | | | | | [facility] [address], | | | | | | [place] [address] | | | | + + + + + + + + | Specimen | + + | Blood specimen | | (specimen) | + + + + + + + | Performing | Address | City/State/Zipcode | Phone Number | | Organization | | | | + + + + + | [facility] | [address] | [place] [address] | | | [facility] | | | | | [...] | | LABORATORY | | | | [facility] [address], | | [place] | | | | [place] [address] | | | | + + + + + + + + | Specimen | + + | Blood specimen | | (specimen) | + + + + + + + | Performing | Address | City/State/Zipcode | Phone Number | | Organization | | | | + + + + + | BETH LIZ | [address] | [place] [address] | | | [facility] | | | | | [...] PROVID ENCE | | | | by [facility] [address], | | SACRED | | | | [place] [address] | | HEART | | | |Performed by [facility] [address], [place] [address] | | MEDICA L | | | [...] + + | BETH LIZ | [address] | [place] [address] | | | [facility] | | | | | [...] CE | | | B-12 | by [facility] [address], | | SACRED | | | | [place] [address] | | HEART | | | |Performed by [facility] [address], [place] [address] | | MEDICAL | | | | [...] + + | BETH LIZ | [address] | [place] [address] | | | HEART [facility] | | | | | LABORATORY [...] by | | | | | | [facility] [address], | | | | | | [place] [address] | | | | + + + + + + + + | Specimen | + + | Blood specimen | | (specimen) | + + + + + + + | Performing | Address | City/State/Zipcode | Phone Number | | Organization | | | | + + + + + | JIMJOSE ADora GOFFEVANS | [address] | [place] [address] | | | [facility] | | | | | [...] | | | POC | Performed by [facility] Dorinda [address]arianela | | SACRED | | | | [address] [place] | | HEART | | | | [address] | | MEDICAL | | | | [...] + + | [facility] | [address] | [place] [address] | | | [facility] | | | | | [...] | | | POC | Performed by [facility] [address] | | SACRED | | | | [address], [place] | | HEART | | | | [address] | | MEDICAL | | | | [...] + | BETH LIZ | [address] [facility] [address] [facility] [address] | [place] [address] | | | [facility] | | | | | [...] | | | POC | Performed by [facility] [address] | | SACRED | | | | [address] [place], [place] | | HEART | | | | [address] | | MEDICAL | | | | [...] + + | BETH GOFFED | [address] | [place] [address] | | | [facility] | | | | | [...] PROVID ENCE | | | | by [facility] [address], | | SACRED | | | | [place] [address] | | HEART | | | |Performed by [facility] [address], [place] [address] | | MEDICA L | | | [...] + + | BETH LIZ | [address] | [place] [address] | | | [facility] | | | | | [...] LUIS DAVISON | | | | by [facility] [address], | | [place] | | | | [place] | | HEART | | | |Performed by [facility] [address] [facility] [address], [place] [address] | | MEDICAL | | | | [...] + + | BETH LIZ | [address] | [place] [address] | | | [facility] | [...] | | LABORATORY | | | | [facility] [address], | | [place] | | | | [place] [address] | | | | + + + + + + + + | Specimen | + + | Blood specimen | | (specimen) | + + + + + + + | Performing | Address | City/State/Zipcode | Phone Number | | Organization | | | | + + + + + | BETH LIZ | [address] [facility] [address] [facility] [address] | [place] [address] | | | [facility] | | | | | [...] | | | POC | Performed by [facility] [address] | | SACRED | | | | [address]th [place], [place] | | HEART | | | | [address] | | MEDICAL | | | | [...] [address] | [place] [address] | | | [facility] | | | | | [...] | | | POC | Performed by [facility] [address] | | AGUSTO | | | | [place], [place] | | HEART | | | | [address] | | MEDICAL | | | | [...] + + | BETH LIZ | [address] | [place] [address] | | | [facility] | [...] | SACRED | | | Total | [id number] | | HEART | | | | [address] [place], [place] | | MEDICAL | | | | [id number] | | CENTER | | | | Lauro HOLDEN [phone] | | LABORATORY | | | | [...] + | BETH LIZ | [address] [facility] [address] [facility] [address] | [place] [address] | | | [facility] | | | | | [...] | SACRED | | | | by [facility] [address], | | HEART | | | | [place] [address] | | MEDICAL | | | | [...] [address] | [place] [address] | | | [facility] | | | | | [...] | SACRED | | | | by [facility] [address], | | HEART | | | | [place] | | MEDICAL | | | [...] + + | [facility] | [address] | [place] | | | [facility] [...] | MEDICAL | | | | by [facility] [address], | | CENTER | | | | [place], [place] | | LABORATORY | | | |Performed by [facility] [address] [facility] [address], [place], [place] | | CERNER | | | [...] + + | [facility] | [address] | [place], [place] | | | HEART [facility] | | | | | LABORATORY [...] | | | POC | Performed by [facility] [address] | | SACRED | | | | [address] [place] | | HEART | | | | [address] | | MEDICAL | | | | [...] + + | BETH LIZ | [address] | [place] [address] | | | [facility] | | | | | [...] | | | POC | Performed by [facility] [address] | | SACRED | | | | [address], [place] | | HEART | | | | [address] | | MEDICAL | | | | [...] [address] | [place] [address] | | | [facility]ENTER | [...] CENTER | | | | 3.5Performed by [facility] [address] | | LABORATORY | | | | [address], [place], [place] | | CERNER | | | | [address] | | | | + + + + + + + + | Specimen | + + | Blood specimen | | (specimen) | + + + + + + + | Performing | Address | City/State/Zipcode | Phone Number | | Organization | | | | + + + + + | BETH LIZ | [address] | [place] [address] | | | HEART [facility] | | | | | LABORATORY [...] | | | Immature | Performed by [facility] [address] | K/uL | SACRED | | | Granulocyte | [address] [place] | | HEART | | | s | [phone] | | MEDICAL | | | | [...] + + | BETH LIZ | [address] | [place] [address] | | | [facility] | | | | | [...] | | LABORATORY | | | | [facility] [address], | | [place] | | | | [place] [address] | | | | + + + + + + + + | Specimen | + + | Blood specimen | | (specimen) | + + + + + + + | Performing | Address | City/State/Zipcode | Phone Number | | Organization | | | | + + + + + | BETH LIZ | [address] | [place] [address] | | | [facility] | | | | | [...] | | | | First dose on [facility] 03/30/19 at 1130 | | AM [...] scheduled: AC, NPO, Daytime | | | 4259-2322 Use NIGHT DOSE for | | | doses scheduled: HS, 3AM, | | | Nighttime 7909-7350 If the BG is | | | [...] | | | | | | | [place] 10/325 if ordered., | | | | [...]
--- OUTSIDE RECORDS SUMMARY | ~2020-03-23 | XMS | Encounter Summary ---
Demographics + + + | Address | [address] | | | [place] [address] | + + + | Home Phone [...] | [facility] | | | and [place] | + + + | Organization | [facility] | | | and [place] | + + + | Address | Unknown | + + + | Phone | Unavailable | + + + Support + + + + + | Name | Relationship | Address | Phone | + + + + + | India Tilley | ECON | [address] | | | | | [place], [place] | | | | | [address] | | + + + + + [...] Team Providers + +------+ + | Care Parts Chaser Name | Role | Phone | + +------+ + PCP | Unavailable | + +------+ + Encounter Details +--------+ + + + + | Date | Type | Department | Care Team | Description | +--------+ + + + + | 03/29/ | Abstract | [facility] | Kelsea, | | | 2017 | | NEPHROLOGY [address] | [address]AYLA Lopez [address] | | | | | [address] | [address] | | | | | [place] | [address] [place] | | | | | [address] | [address] | | | | | [phone] | | | +--------+ + + + [...] this encounter Progress Notes Tatiana Rendon - 03/29/2017 4:45 PM PDTOutside record: Renal ultrasound, dos: 03/29/17. From [facility]. Sent to scan.Electronically signed by Tatiana Rendon at 03/29 4:46 PM PDTdocumented in this encounter Plan of Treatment Not on filedocumented as of this encounter Visit Diagnoses Not on filedocumented in this encounter"
--- OUTSIDE RECORDS SUMMARY | ~2020-03-23 | XMS | Encounter Summary ---
Demographics + + + | Address | [address] | | | [place] [address] | + + + | Home Phone | | + + + | Preferred Language | Unknown | + + + | Marital Status | Single | + + + | Pentecostal Affiliation | Unknown | + + + | Race | Unknown | + + + | Ethnic Group | Unknown | + + + Author + + + | Author | [facility] | | | and [place] | + + + | Organization | [facility] | | | and [place] | + + + | Address | Unknown | + + + | Phone | Unavailable | + + + Support + + + + + | Name | Relationship | Address | Phone | + + + + + | India Tilley | ECON | [address] | | | | | [place], [place] | | | | | [address] | | + + + + + [...] Team Providers + +------+ + | Care Audiometric Technician Name | Role | Phone | + +------+ + PCP | Unavailable | + +------+ + Encounter Details +--------+ + + + + | Date | Type | Department | Care Team | Description | +--------+ + + + + | 09/09/ | Hospital [facility] | | | | 2005 - | Encounter | [facility] | | | | | | JOSE Sol | | | | 09/12/ | | [place] | | | | 2005 | | [address] | | | | | | [phone] | | | +--------+ + + + [...]
--- OUTSIDE RECORDS SUMMARY | ~2020-03-23 | XMS | Encounter Summary ---
Demographics + + + | Address | [address] | | | [place] [address] | + + + | Home Phone [...] | Author | [facility] | | | and [place] | + + + | Organization | [facility] | | | and [place] | + + + | Address | Unknown | + + + | Phone | Unavailable | + + + Support + + + + + | Name | Relationship | Address | Phone | + + + + + | India Tilley | ECON | [address] | | | | | [place], [place] | | | | | [address] | | + + + + + [...] Team Providers + +------+ + | Care Psychologist Personnel Name | Role | Phone | + [...] + | 02/04/ | Telephone | [facility] | Santos Stephenson | Post Op (dialysis | | 2017 | | SURGERY [address] | MD Kinga, FACS [address] | catheter fell out. ) | | | | [address] [place], [place] | DERICK [facility] | | | | | [address] | [place] [address] | | | | | [phone] | [phone] | | | | | | | [...] PDTContacted Dr. Claire acosta's office to coordinate personnel technician surgery for dialysis catheter placement as we [...] catheter bucky cement. Advised Dr. Navarro is personnel technician this weekend and is in the OR currently today. Dori al so stated that she would be calling the patient to update on plans/needs for the patient. El ectronically signed by Mike Pearson RN at 02/04/2018 8:33 AM PDTTelephone Encounter - Tahira Mensah - 02/04/2018 8:03 AM PDTCatheter fell out yesterday, went to Emergency at [facility] in [place]. She said that Cleaned tagged it, and they had never seen one like she had and could not reinsert it. She called the dialysis center at [place] and they to ld her to get in touch with Dr. Stephenson. If you could call her and advise her what to do next she would appreciate it. doc umented in this encounter Plan of Treatment Not on filedocumented as of this encounter Visit Diagnoses Not on filedocumented in this encounter"
--- OUTSIDE RECORDS SUMMARY | ~2020-03-23 | XMS | Encounter Summary ---
Demographics + + + | Address | [address] | | | [place] [address] | + + + | Home Phone [...] Author | [facility] | | | and [place] | + + + | Organization | [facility] | | | and [place] | + + + | Address | Unknown | + + + | Phone | Unavailable | + + + Support + + + + + | Name | Relationship | Address | Phone | + + + + + | India Tilley | ECON | [address] | | | | | [place], [place] | | | | | [address] | | + + + + + [...] Team Providers + +------+ + | Care Donor Services Specialist Name | Role | Phone | + +------+ + PCP | Unavailable | + +------+ + Reason for Visit + +--------+ + | Reason | Onset | Comments | | | Date | | + +--------+ + | Nephrology | 06/01/ | | | Appointment | 2017 | | + +--------+ + Encounter Details +--------+ + + + + | Date | Type | Department | Care Team | Description | +--------+ + + + + | 06/01/ | Telephone | [facility] [place] | Darlin Moseley, | Nephrology | | 2017 | | NEPHROLOGY [address] | MD [address] | Appointment | | | | [address] | [address] [place] | | | | | [place], [place] | [place] [address] | | | | | [id number] | [phone] | | | | | [phone] | | | +--------+ + + + [...] this encounter Miscellaneous Notes Telephone Encounter - Tatiana Rendon - 06/01/2017 10:15 AM PDTAppointment was cancelled b y office because we have not been able to contact patient. Numerous voice mail messages hav e been left on her home telephone number with no response and labs have not been completed. I contacted [facility] and left a voice mail message for susan [email or web address] to let her know what happened.Electronically signed by Tatiana castillo 06/01/2017 10:17 AM PDTdocumented in this encounter Plan of Treatment Not on filedocumented as of this encounter Visit Diagnoses Not on filedocumented in this encounter"
--- OUTSIDE RECORDS SUMMARY | ~2020-03-23 | XMS | Encounter Summary ---
Demographics + + + | Address | [address] | | | [place] [address] | + + + | Home Phone [...] Author | [facility] | | | and [place] | + + + | Organization | [facility] | | | and [place] | + + + | Address | Unknown | + + + | Phone | Unavailable | + + + Support + + + + + | Name | Relationship | Address | Phone | + + + + + | India Tilley | ECON | [phone] | | | | | [place], [place] | | | | | [address] | | + + + + + [...] Team Providers + +------+ + | Care Continuing Education Dean Name | Role | Phone | + +------+ + PCP | Unavailable | + +------+ + Encounter Details +--------+ + + + + | Date | Type | Department | Care Team | Description | +--------+ + + + + | 09/23/ | Hospital | [facility] | | | | 2006 - | Encounter | MED CTR CANCER | | | | | | JOSE Sol | | | | 10/13/ | | [place] | | | | 2006 | | [address] | | | | | | [phone] | | | +--------+ + + + [...]
--- OUTSIDE RECORDS SUMMARY | ~2020-03-23 | XMS | Encounter Summary ---
Demographics + + + | Address | [address] | | | [place] [address] | + + + | Home Phone [...] Author | [facility] | | | and [place] | + + + | Organization | [facility] | | | and [place] | + + + | Address | Unknown | + + + | Phone | Unavailable | + + + Support + + + + + | Name | Relationship | Address | Phone | + + + + + | Inida Tilley | ECON | [phone] | | | | | [place], [place] | | | | | [address] | | + + + + + [...] Team Providers + +------+ + | Care Foil Cutter Name | Role | Phone | [...] | [place] | [place] [address] | | | | | [place] [address] | | | | | | [phone] | | | +--------+ + + + [...] for comparison only - no result from [place]. | [facility] | + + + + +---------+ + + | Performing | Address | City/State/Zipcode | Phone Number | | Organization | | | | + +---------+ + + | [facility] | | | | + +---------+ + + documented in this encounter Visit Diagnoses Not on filedocumented in this encounter"
--- OUTSIDE RECORDS SUMMARY | ~2020-03-23 | XMS | Encounter Summary ---
Demographics + + + | Address | [address] | | | [place] [address] | + + + | Home Phone [...] Author | [facility] | | | and [place] | + + + | Organization | [facility] | | | and [place] | + + + | Address | Unknown | + + + | Phone | Unavailable | + + + Support + + + + + | Name | Relationship | Address | Phone | + + + + + | India Tilley | ECON | [address] | | | | | [place], [place] | | | | | [address] | | + + + + + [...] Team Providers + +------+ + | Care Hide Measuring Machine Operator Name | Role | Phone [...] | | Infection | MillerNick | [address] | | | | | of | Paulie, | Swain, | | | | | 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 [address] | [place] [address] | | | | | al disc | [address] | Phone: | | | | | (pyogenic), | [place], [place] | [phone] | | | | | thoracic | [phone] | Fax: | | | | | region (HCC) | Phone: | [phone] | | | | | | [phone] | | | | | | 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: | | | | | | s of | [phone] | | | | | | thoracic [...] + + | 07/13/ | Hospital | [facility] | Fabiana Breeno, | Canceled (OTHER) | | 2019 | Encounter | CENTER IR INTRA OP | Nick Apodaca MD | | | | | [address] | [address] | | | | | [place], [place] | [place] [address] | | | | | [address] | [phone] | | | | | [phone] | | | | | | | Wm [place] | | | | | | MD [address] | | | | | | [place] | | | | | | [place] [address] | | | | | | [phone] | | | | | | | [...]
--- OUTSIDE RECORDS SUMMARY | ~2020-03-23 | XMS | Encounter Summary ---
Demographics + + + | Address | [address] | | | [place] [address] | + + + | Home Phone [...] Author | [facility] | | | and [place] | + + + | Organization | [facility] | | | and [place] | + + + | Address | Unknown | + + + | Phone | Unavailable | + + + Support + + + + + | Name | Relationship | Address | Phone | + + + + + | India Tilley | ECON | [phone] | | | | | [place], [place] | | | | | [address] | | + + + + + [...] Team Providers + +------+ + | Care Transportation Maintenance Specialist Name | Role | Phone | + +------+ + PCP | Unavailable | + +------+ + Encounter Details +--------+ + + + + | Date | Type | Department | Care Team | Description | +--------+ + + + + | 02/26/ | [facility] | [facility] | Patricia, | | | 2006 - | Encounter | MED CTR CANCER | Venkatesh Forte MD [address] | | | | | CENTER [address] | [place] | | | 03/12/ | | [place] | [place] [address] | | | 2006 | | [address] | [phone] | | | | | [phone] | | | +--------+ + + + [...]
--- OUTSIDE RECORDS SUMMARY | ~2020-03-23 | XMS | Encounter Summary ---
Demographics + + + | Address | [address] | | | [place] [address] | + + + | Home Phone [...] | Author | [facility] | | | and [place] | + + + | Organization | [facility] | | | and [place] | + + + | Address | Unknown | + + + | Phone | Unavailable | + + + Support + + + + + | Name | Relationship | Address | Phone | + + + + + | India Tilley | ECON | [address] | | | | | [place], [place] | | | | | [address] | | + + + + + [...] Team Providers + +------+ + | Care Crystal Syrup Maker Name | Role | Phone | + +------+ + PCP | Unavailable | + +------+ + Encounter Details +--------+ + + + + | Date | Type | Department | Care Team | Description | +--------+ + + + + | 02/03/ | Hospital | [facility] | Scott Koroma, | Closed fracture of | | 2019 | Encounter | MED CTR [facility] | [address] | neck of right femur, | | | | [address] [place] | [place], [place] | initial encounter | | | | [place] | [address] | (HCC); Right hip | | | | [address] | | pain; H/O major | | | | [phone] | | orthopedic surgery | +--------+ + [...] | | | | | ([facility]), Right hip | | | | [...] section. | | | | | encounter ([facility]) | | | | | | [...]
--- OUTSIDE RECORDS SUMMARY | ~2020-03-23 | XMS | Encounter Summary ---
Demographics + + + | Address | [address] | | | [place] [address] | + + + | Home Phone [...] + | Author | [facility] | | | and [place] | + + + | Organization | [facility] | | | and [place] | + + + | Address | Unknown | + + + | Phone | Unavailable | + + + Support + + + + + | Name | Relationship | Address | Phone | + + + + + | India Tilley | ECON | [address] | | | | | [place], [place] | | | | | [address] | | + + + + + [...] Providers + +------+ + | Care Outside Contractor Sales Name | Role | Phone | + [...] | [place] | [place] [address] | | | | | [place] [address] | | | | | | [phone] | | | +--------+ + + + [...] for comparison only - no result from [place]. | [facility] | + + + + +---------+ + + | Performing | Address | City/State/Zipcode | Phone Number | | Organization | | | | + +---------+ + + | [facility] | | | | + +---------+ + + documented in this encounter Visit Diagnoses Not on filedocumented in this encounter"
--- OUTSIDE RECORDS SUMMARY | ~2020-03-23 | XMS | Encounter Summary ---
Demographics + + + | Address | [address] | | | [place] [address] | + + + | Home Phone [...] | [facility] | | | and [place] | + + + | Organization | [facility] | | | and [place] | + + + | Address | Unknown | + + + | Phone | Unavailable | + + + Support + + + + + | Name | Relationship | Address | Phone | + + + + + | India Tilley | ECON | [address] | | | | | [place], [place] | | | | | [address] | | + + + + + [...] Team Providers + +------+ + | Care Psychiatric Therapist Name | Role | Phone | + +------+ + PCP | Unavailable | + +------+ + Reason for Visit +--------+--------+ + | Reason | Onset | Comments | | | Date | | +--------+--------+ + | Other | 06/01/ | | | | 2019 | | +--------+--------+ + Encounter Details +--------+ + + + + | Date | Type | Department | Care Team | Description | +--------+ + + + + | 06/01/ | Telephone | [facility] | Gopi Muñoz | Other | | 2019 | | NEPHROLOGY [address] | M, DO [address] | | | | | [address] | [address] [place] | | | | | [place], [place] | [place] [address] | | | | | [address] | [phone] | | | | | [phone] | | | +--------+ + + + [...] this encounter Miscellaneous Notes Telephone Encounter - Celeste Butler RN - 06/05/2019 4:[address] Muñoz: Leave [facility]. Please schedule a CT guided BX of the T11-or T12 vertebrae, at [facility] I.R. or Neurosurgery, [facility], whichever they prefer? Her local ID mobile sales consultant said no further AB's until we did this. Patient was suppose to follow up with [facility] ID Dr. Jung on 05/25/19 to discuss further tr eatment/biopsy but was unable to attend d/t IP status at [facility]. Follow up appointment made f or patient on WednesdayJune 13 at 1400. Patient called and notified, address to clinic give n. elephone Tatiana Adams - 06/01/2019 11:12 AM Livier is calling to ask when she can get her pic line removed and if there has been an appointment scheduled for her to have a biopsy of her back. documented in this encou nter Plan of Treatment Not on filedocumented as of this encounter Visit Diagnoses Not on filedocumented in this encounter"
--- OUTSIDE RECORDS SUMMARY | ~2020-03-23 | XMS | Encounter Summary ---
Demographics + + + | Address | [address] | | | [place] [address] | + + + | Home Phone [...] | Author | [facility] | | | and [place] | + + + | Organization | [facility] | | | and [place] | + + + | Address | Unknown | + + + | Phone | Unavailable | + + + Support + + + + + | Name | Relationship | Address | Phone | + + + + + | India Tilley | ECON | [address] | | | | | [place], [place] | | | | | [address] | | + + + + + [...] Team Providers + +------+ + | Care Dehydrogenation Converter Helper Name | Role | Phone | [...] | | (HCC) | [place], | [place] [address] | | | | | | [place] [address] | Phone: | | | | | | Phone: | [phone] | | | | | | [phone] | Fax: | | | | | | Fax: | [phone] | | | | | | [phone] | | +--------+ + + + + + Encounter Details +--------+---------+ + + + | Date | Type | Department | Care Team | Description | +--------+---------+ + + + | 02/10/ | Office | [facility] | Santos Stephenson | Chronic kidney | | 2018 | Visit | SURGERY [address] | MD Kinga, FACS [address] | disease, stage V | | | | [address] [place] [facility], [place] | [address] | (HCC) (Primary Dx); | | | | [address] | [place] [address] | Post-operative state | | | | [phone] | [phone] | | | | | | | [...] Placement; Surgeon: Nora Leo MD; Location : [facility] MAIN OR SHUNT PLACEMENT/INSERTION Right 02/04/2018 Procedure: INSERTION SHUNT HEMODIALYSIS W/ PERMACATH; Surgeon: Heather Navarro MD; L ocation: [facility] MAIN OR VEIN SURGERY Right 01/04/2018 Procedure: Right Transposed Basilic Vein to Proximal Radial Artery; Surgeon: Santos Stephenson MD, FACS; Location: [facility] MAIN OR Allergies Allergen Reactions Lisinopril Pt [...] REPORT: PATIENT NAME : Estefani Tilley EQUIPMENT: SonADVIZEte M-Turbo with 10-5 mHertz probe. INDICATIONS: S/P [...]
--- OUTSIDE RECORDS SUMMARY | ~2020-03-23 | XMS | Encounter Summary ---
Demographics + + + | Address | [address] | | | [place] [address] | + + + | Home Phone [...] | [facility] | | | and [place] | + + + | Organization | [facility] | | | and [place] | + + + | Address | Unknown | + + + | Phone | Unavailable | + + + Support + + + + + | Name | Relationship | Address | Phone | + + + + + | India Tilley | ECON | [address] | | | | | [place], [place] | | | | | [address] | | + + + + + [...] Team Providers + +------+ + | Care International Editorial Producer Name | Role | Phone | + +------+ + PCP | Unavailable | + +------+ + Reason for Visit + +--------+ + | Reason | Onset | Comments | | | Date | | + +--------+ + | Surgery Appointment | 01/03/ | | | | 2018 | | + +--------+ + Encounter Details +--------+ + + + + | Date | Type | Department | Care Team | Description | +--------+ + + + + | 01/03/ | Telephone | [facility] | Santos Stephenson | Surgery Appointment | | 2018 | | SURGERY [address] | MD Kinga, FACS [address] | | | | | [place], [place] | [address] [facility] | | | | | [address] | [place] [address] | | | | | [phone] | [phone] | | | | | | | [...] Telephone Encounter - Awa Hart RN - 01/03/2018 4:50 PM PDTCalled patient back. We w ere able to move the other surgeries around. Told her surgery is now scheduled for 12:00pm a nd she will need to check in at 10:00am. She verbalized understanding. elephone Encounter - Gina Osborn - 3:46 PM PDTPatient called back and stated that she has been calling her sister abo ut the ride but she isn't answering so she can't promise she will be there in time. She woul d like a phone call back if possible at [phone] signed by Gina allen at 01/03/2018 3:48 PM PDTTelephone Encounter - Awa Hart, RN - 01/03/2018 3:00 PM P DTCalled to inform patient of new check in time for surgery at 8:00am with surgery at 10:00a m. She verbalized understanding but stated this may be difficult due to her ride and coming from [place]. Asked her to please call with ride and check if they can be there at this ti me and let us know. docu mented in this encounter Plan of Treatment Not on filedocumented as of this encounter Visit Diagnoses Not on filedocumented in this encounter"
--- OUTSIDE RECORDS SUMMARY | ~2020-03-23 | XMS | Encounter Summary ---
Demographics + + + | Address | [address] | | | [place] [address] | + + + | Home Phone [...] | Author | [facility] | | | and Kamaljitana | + + + | Organization | [facility] | | | and [place] | + + + | Address | Unknown | + + + | Phone | Unavailable | + + + Support + + + + + | Name | Relationship | Address | Phone | + + + + + | India Tilley | ECON | [address] | | | | | [place], [place] | | | | | [address] | | + + + + + [...] Team Providers + +------+ + | Care Bacon Skinner Name | Role | Phone | + [...] + + | 11/08/ | Surgery | [facility] | Nora Leo MD | Tunneled | | 2018 | | MED CTR OR INTRA OP | [address] | Hemodialysis | | | | [address] | [place] [address] | Catheter Placement | | | | [place], [place] | [phone] | | | | | [address] | | | | | | [phone] | | | +--------+---------+ + + + [...] might be differ ent from the original. [place] HOSPITALIST DISCHARGE SUMMARY Pt. Name/Age/: Ara [...] insulin glargine 100 units/mL injection (vial) aka: [facility]: Please refer to the H&P for full details and the most recent rounding rounding (progress) n ote. In short this is a 72-year-old woman, history of hypertension, diabetes mellitus type 2 on insulin, chronic kidney disease of stage V, CAD, who presented to [facility] after be ing found down [...] n/a DISPOSITION AND DISCHARGE INSTRUCTIONS: Follow-up Information [facility] On 11/10/2017. Why: 1:00pm Contact information: [address] [place] [address] Follow up In 3 days. Francisca Womack PA-C In 3 days. Specialty: Internal Medicine Contact information: [address] [place] [address] Hemodialysis In 1 day. Contact information: Appointment at 1:30 PM Condition: Patient being discharged with condition improved and stable Diet: renal, carbohydrate controlled Greater than 30 minutes were spent on discharge and coordination of post-hospital care. Electronically signed by: Mayelin Vega MD, 11/09/2017 11:06 [facility] Portions of this chart may have been created with netFactor voice recognition software. Occasi onal wrong-word or sound-alike substitutions may have occurred due to the inherent mckeon itations of voice recognition software. Please read the chart carefully and recognize, using context, where these substitutions have occurred documented in this encounter Discharge Instructions AttachmentsThe following attachments cannot be sent through Care Everywhere.Balancing Calci um and Phosphorus, Kidney Disease ([place]se)Hemodialysis ([place])documented in this encounte r Medications at Time [...] Muñoz, DO - 11/09/2017 6:18 PM PST [facility] [address] [place] [address] PROGRESS NOTE Pt. Name/Age/: Ara Tilley 72 y.o. 1945 Med. Record Number: [id number] Date of admission: 11/01/2017 NEPHROLOGY HPI - Pt was seen at 1000 on HD with NxStage with QB 300 tolerating very well. I had a ajy gthy discussion with her about her quality [...] 3. Complete 10 days total of AB's. [facility] Nora Headley MD - 11/09/2017 4:24 [...] Chayo Rodarte RN 11/09/2017 16:05 [facility] - 11/09/2017 11:00 AM Krystle met with [...] and she agreed. Nikki was raised in [place] and in [place], [place]. She has two brothers and two sisters, and h ad 4 children of her own. Her oldest child, daughter, two months ago. Nikki is gri eving her loss and teared up while talking about her. Her other children live in [facility] and one son has been in [facility] for 23 years. She hasn't seen him since he was arr ested and is hopeful she will get to see him next year, as he is schedule to be released at that time. 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 She has at least 4 ye ars post high school education and studied [employer]. In the years prior to assisted, she worked at [employer]. Nikki's mother had chronic kidney disease and [...] and picking up and going to the [facility] reservation in [place]. She must plan it out, and that feels antithetical to her nature. Ginger francine was present and attentive while she discussed her grief around losing her family member s and her lifestyle, offered supportive travel counselor. Chayo Ramirez RN - 11/09/2017 10:00 AM Cam RN arrived at [facility]'s room around 0800 to begin dialysis. [...] 11/08/2017 6:50 PM PSTThis provider, Palliative Care POWERHOUSE LABORER, met briefly with "Keila Blunt rebecca this [...] this note might be different from the [facility] [place] [facility] PROGRESS NOTE Patient: Ara Tilley : 1945: Age: 72 y.o. MedRec: [id number] Admission date: 11/01/2017 Hospital day # : [...] mg/m L 0.25 mg [facility] Levelman Nora Leo MD [NOV Hold] labetalol (NORMODYNE) [...] nephrology recs -Nephro rec permacath needed for snf dialysis -continue ferrlecit and Epogen 3. CAD- no signs of ACS, EKG RBBB, trop 0.03 at OSH -Continue aspirin, lipitor 4. Hypothyroidism -TSH WNL -Continue levothyroxine 5. HTN uncontrolled -Continue Labetalol and furosemide -Continue losartan 25 mg daily PPX: HSQ FEN: renal Mayelin Vega 11/08/2017 11:50 [facility] Nora Headley MD - 11/08/2017 10:06 [...] might be different f rom the original. [facility] [place] HOSPITALIST PROGRESS NOTE Patient: Ara Tilley : 1945: Age: 72 y.o. MedRec: [id number] Admission date: 11/01/2017 Hospital day # : [...] mL IVPB 125 mg Intrave nous Daily Goip Muñoz, DO 110 mL/hr at 11/07/17 1143 [...] Procedure Component Value Units Date/Time Culture, Blood [[id number]] (Normal) Collected: 11/04/172121 Order Status: Completed Lab Status: Preliminary result Updated: 11/05/17930 Specimen: Blood from Line Culture No growth: Monitored continually by instrument for 5 days Culture, Blood [[id number]] (Normal) Collected: 11/04/172102 Order Status: Completed Lab [...] Wednesday to determine if permacath needed for watermaster dialysis -continue ferrlecit and Epogen 3. CAD- no signs of ACS, EKG RBBB, trop 0.03 at OSH -Continue aspirin, lipitor 4. Hypothyroidism -TSH WNL -Continue levothyroxine 5. HTN uncontrolled -Continue Labetalol and furosemide -restart losartan 25 mg daily PPX: HSQ FEN: renal Mayelin Vega 11/07/2017 12:57 [facility] eCordell clark MD - 11/07/2017 9:43 AM PSTFormatting of this note might be different from the maynor rollins formerly [facility] NEPHROLOGY progress note Patient: Ara Tilley [...] Darlin Moseley MD Electronically signed: 11/07/2017 9:43 [facility] NEPHROLOGY Olegario Keen M D - 11/06/2017 2:15 PM PST [facility] [place] HOSPITALIST PROGRESS NOTE Patient: Ara Tilley : 1945: Age: 72 y.o. MedRec: [id number] Admission date: 11/01/2017 Hospital day # : [...] capsule 30 mg 30 mg Oral Daily Rpual Laguna MD 30 mg at 0 11/06/17 [...] Procedure Component Value Units Date/Time Culture, Blood [[id number]] (Normal) Collected: 11/04/172121 Order Status: Completed Lab Status: Preliminary result Updated: 11/05/17930 Specimen: Blood from Line Culture No growth: Monitored continually by instrument for 5 days Culture, Blood [[id number]] (Normal) Collected: 11/04/172102 Order Status: Completed Lab Status: Preliminary result Updated: 11/05/17910 Specimen: Blood from Line Culture No growth: Monitored continually by instrument for 5 days Culture, Blood [[id number]] (Normal) Collected: 11/03/17 1506 Order Status: Completed [...] to determ ine if permacath needed for watermaster dialysis CAD no signs of ACS, EKG [...] Oral BID PRN Olegario Peng 11/06/2017 14:15 [facility] Darlin Palmer M D - 11/06/2017 9:10 AM PST formerly [facility] NEPHROLOGY progress note Patient: Ara Tilley [...] Continuous Infusions: Heparin Infusion 200 Units/hr (11/06/17 3627) PRN Meds:acetaminophen, albumin, albuterol, bisacodyl, Hypoglycemia Management [...] Darlin Moseley MD Electronically signed: 11/06/2017 9:11 [facility] NEPHROLOGY Olegario Keen M D - 11/05/2017 2:08 PM PST [facility] [place] HOSPITALIST PROGRESS NOTE Patient: Ara Tilley : 1945: Age: 72 y.o. MedRec: [id number] Admission date: 11/01/2017 Hospital day # : [...] 75 mcg 75 mcg Oral QAM AC Ruapl Laguna MD 75 mcg at 11/05/17 0637 [...] Procedure Component Value Units Date/Time Culture, Blood [[id number]] (Normal) Collected: 11/04/172121 Order Status: Completed Lab Status: Preliminary result Updated: 11/05/17 0931 Specimen: Blood from Line Culture No growth: Monitored continually by instrument for 5 days Culture, Blood [[id number]] (Normal) Collected: 11/04/172102 Order Status: Completed Lab Status: Preliminary result Updated: 11/05/17 09 Specimen: Blood from Line Culture No growth: Monitored continually by instrument for 5 days Culture, Blood [[id number]] (Normal) Collected: 11/03/17 1506 Order Status: Completed Lab Status: Preliminary result Updated: 11/04/17 0311 Specimen: Blood from Peripheral Blood Culture No growth: Monitored continually by instrument for 5 days Culture, Blood [[id number]] (Abnormal) Collected: 11/03/17 0812 Order Status: Completed Lab Status: Preliminary result Updated: 11/05/17 0751 Specimen: Blood from Arm, Left Culture Positive Blood Culture (AA) Staphylococcus coagulase negative Comment: Identification and susceptibility to follow. Probable contaminant Gram Stain Result Gram positive cocci in clusters Comment: 2 of 4 bottles positive Culture, Respiratory, Lower, Smear [[id number]] Collected: 11/03/17 0727 Order Status: Completed Lab [...] Oral BID PRN Olegario Peng 11/05/2017 14:08 [facility] Darlin Palmer M D - 11/05/2017 1:53 PM PST formerly [facility] NEPHROLOGY progress note Patient: Ara Tilley [...] Darlin Moseley MD Electronically signed: 11/05/2017 13:53 [facility] NEPHROLOGY tGopi rick , DO - 11/04/2017 6:53 PM PST [facility] [address] [place] [address] PROGRESS NOTE Pt. Name/Age/: Ara Tilley 72 y.o. 1945 Med. Record Number: [id number] Date of admission: 11/01/2017 NEPHROLOGY HPI - [...] to high Inpt case load here at [facility]. 2. probable pyelonephritis?--Day #3 Ceftriaxone, [...] for coverage of both organisms, Q 48H. [facility] hase, Queenie Mcgraw RN - 11/04/2017 10:23 AM PSTPatient transferred from ICU into room 307. Oriented to room an d call light. Bed alarm set. Call light in place. Remains on 2L via nasal canula. Makes need s known. Amanda Keen MD - 11/04/2017 7:21 AM PSTFormatting of this note might be different from the origin al. [facility] [place] HOSPITALIST PROGRESS NOTE Patient: Ara Tilley : 1945: Age: 72 y.o. MedRec: [id number] Admission date: 11/01/2017 Hospital day # : [...] Procedure Component Value Units Date/Time Culture, Blood [[id number]] (Normal) Collected: 11/03/17 1506 Order Status: Completed Lab Status: Preliminary result Updated: 11/04/17 0311 Specimen: Blood from Peripheral Blood Culture No growth: Monitored continually by instrument for 5 days Culture, Blood [[id number]] (Normal) Collected: 11/03/17 0812 Order Status: Completed Lab Status: Preliminary result Updated: 11/03/17 204 Specimen: Blood from Arm, Left Culture No growth: Monitored continually by instrument for 5 days Culture, Respiratory, Lower, Smear [[id number]] Collected: 11/03/17 0727 Order Status: Completed Lab Status: Preliminary result Updated: 11/03/17 1028 Specimen: Respiratory from Sputum, expectorated Gram Stain Result 3+ White Blood Cells 2+ Epithelial cells 2+ Gram positive cocci 2+ Gram positive bacilli 1+ Hyphael elements Influenza A and B RNA, NAAT [[id number]] (Normal) Collected: 11/02/17 1050 Order Status: Completed Lab Status: Final result Updated: 11/02/17 1125 Specimen: Respiratory from Nares Influenza A PCR Negative Influenza B PCR Negative Culture, Urine [[id number]] Collected: 11/02/17 0740 Order Status: Completed Lab Status: Preliminary result Updated: 11/03/17 1013 Specimen: Urine Culture >100,000 CFU/ml Lactose Fermenting Gram Negative Bacilli Comment: Identification and susceptibility to follow. Culture, Blood [[id number]] (Normal) Collected: 11/02/17 0024 Order Status: Completed Lab Status: Preliminary result Updated: 11/02/17 1241 Specimen: Blood from Peripheral Blood Culture No growth: Monitored continually by instrument for 5 days Culture, Blood [[id number]] (Abnormal) Collected: 11/02/17 0019 Order Status: Completed [...] 15:14 by Edison Short. Narrative: Culture, MRSA [[id number]] Collected: 11/01/17 2146 Order Status: Completed Lab [...] in chains -Repeat UA (+), urine culture >056191 GNB lactose fermenting -Continue ceftriaxone started 11/02, azithromycin 11/03 -Blood cultures 11/03 NGTD, will eval for clearance -White count increase in the setting of resolution of hypothermia, will closely monitor for need of abx adjustment, patient has been afebrile CKD IV/V Muhurker placed on 11/03 for initiation of dialysis -On lasix -[facility] nephrology recs CAD no signs of ACS, [...] Q30 Min PRN Olegario Peng 11/04/2017 7:21 [facility] Nick Aguillon, RN - 0 11/04/2017 1:06 AM PSTDialysis treatment started and Arterial pressures running in the -400s , trouble shooting ineffective, arterial and venous lines switched, pressures now -50s. Shama cornell is running appropriately at this moment, will continue monitoring. Nick Guallpa tGopi rick, DO - 11/03/2017 11:20 AM PST [facility] [address] [address] PROGRESS NOTE Pt. Name/Age/: Ara Tilley 72 y.o. 1945 Med. Record Number: [id number] Date of admission: 11/01/2017 NEPHROLOGY HPI - [...] anemia. 4. Encourage ambulation to minimize atelectasis. [facility] Olegario Keen MD - 11/03/2017 7:07 AM PST [facility] [place] HOSPITALIST PROGRESS NOTE Patient: Ara Tilley : 1945: Age: 72 y.o. MedRec: [id number] Admission date: 11/01/2017 Hospital day # : [...] PH UA 6.0 5.0 - 8.0 Specific Lyman 1.010 1.001 - 1.030 PROTEIN UA 100 [...] Date/Time Influenza A and B RNA, NAAT [[id number]] (Normal) Collected: 11/02/17 1050 Order Status: Completed Lab Status: Final result Updated: 11/02/17 1125 Specimen: Respiratory from Nares Influenza A PCR Negative Influenza B PCR Negative Culture, Urine [[id number]] Collected: 11/02/17 0740 Order Status: Sent Lab Status: In process Updated: 11/02/17 0758 Specimen: Urine Culture, Blood [[id number]] (Normal) Collected: 11/02/17 0024 Order Status: Completed Lab Status: Preliminary result Updated: 11/02/17 1241 Specimen: Blood from Peripheral Blood Culture No growth: Monitored continually by instrument for 5 days Culture, Blood [[id number]] (Abnormal) Collected: 11/02/17 0019 Order Status: Completed Lab Status: Preliminary result Updated: 11/02/17 1515 Specimen: Blood from Peripheral Blood Culture Positive Blood Culture (AA) Gram Stain Result Gram positive cocci in chains Comment: One of four Blood Culture bottles POSITIVE. Critical Result called to and read b ack by Kristen Irving on 11/02/2017 at 15:14 by Edison Short. Narrative: Culture, MRSA [[id number]] Collected: 11/01/172145 Order Status: Sent Lab Status: [...] Oral BID PRN Olegario Peng 11/03/2017 7:08 [facility] olph, Ta Lauro, [facility] - 11/02/2017 3:43 PM PST PHARMACY [...] directions X Pharmacy list names: [facility] SAMPLE SUPERVISOR (Prescription Monitoring Program) X [employer] insurance reported [...] Prior to Admission Sig: Patient taking differently EQUALIZING SAW OPERATOR as: Atorvastatin 20mg 1 tab by mouth nightly 1 tab by mouth every morning Calcium- vitamin d 600-400mg 1 tab by mouth twice daily 1 tab by mouth every morning Duloxetine 30mg DR 1 capsule by mouth daily Patient has not started this medication EQUALIZING SAW OPERATOR, cortés s not filled at pharmacy [id number] 200mg by mouth twice daily 200mg by mouth every morning labetalol 200mg 1 tab by mouth twice daily Patient has not started this medication EQUALIZING SAW OPERATOR, has not filled at pharmacy Best possible EQUALIZING SAW OPERATOR medication list after pharmacy review: Prior to [...] performed and electronically signed by Puja Whitman, Sales Hunter 2017 15:31 Electronically signed by: Ta Ronquillo RPH 11/02/2017 15:40 Olegario Keen MD - 11/02/2017 7:21 AM PST [facility] [place] HOSPITALIST PROGRESS NOTE Patient: Ara Tilley : 1945: Age: 72 y.o. MedRec: [id number] Admission date: 11/01/2017 Hospital day # : [...] Procedure Component Value Units Date/Time Culture, Blood [[id number]] Collected: 11/02/17 0024 Order Status: Sent Lab Status: In process Updated: 11/02/1732 Specimen: Blood from Peripheral Blood Culture, Blood [[id number]] Collected: 11/02/17 0019 Order Status: Sent Lab Status: In process Updated: 11/02/1732 Specimen: Blood from Peripheral Blood Culture, MRSA [[id number]] Collected: 11/01/172145 Order Status: Sent Lab Status: [...] 0.9% Intravenous Continuous Olegario Peng 11/02/2017 7:38 [facility] documented in this e ncounter H&P Notes Rupal Laguna MD - 11/01/2017 10:36 PM PST HISTORY AND PHYSICAL EXAMINATION Pt. Name/Age/: Ara Tilley 72 y.o. 1945 Date of admission: 11/01/2017 Admitting Physician: Rupal Laguna Primary Care Physician: Nan Bruno History taken from: patient and past medical records Chief Complaint/Reason for Visit: Sent by [facility] for hypoglycemia, hypothyroidism, and CKD History of Present Illness: 72yoF w/ hx of IDDM, HTN, CKD IV/V, CAD, who initially presented to [facility] after iwona garrett found down in [...] whether she really wants to go [facility] with it. She feels overwhelmed by all [...] 100 mg 100 mg Oral BID PRN Rpual Laguna MD [START ON 11/02/2017] DULoxetine (CYMBALTA) [...] negative except as not ed in the [facility] or here. Exam: Vital Signs on Arrival: [...] signed by: Rupal Laguna MD, 11/01/2017 22:36 [facility] Lab data: Recent Results (from the past [...] Leo MD - 11/06/2017 4:06 PM PST [facility] ADMIT HISTORY AND PHYSICAL Primary Care Physician: [...] admitted on 11/01 after being transferred from [facility] seps is likely secondary to UTI +/- [...] 1 tablet by mouth Daily. 10/07/17 Yes Jsesie Maldonado gabapentin (NEURONTIN) 100 mg capsule Take [...] mouth Daily. 10/07/17 Yes Edison Keys MD [facility]. Throat Products (OASIS MOISTURIZING MOUTHWASH MT) Take [...] Signed by: Nora Leo MD, 11/06/2017 16:07 [facility] opi Muñoz, DO - 11/02/2017 3:45 PM PST [facility] [address] [place], [place] [id number] NEPHROLOGY CONSULT Pt. Name/Age/: Ara Tilley 72 y.o. 1945 Med. Record Number: [id number] Date of admission: 11/01/2017 Reason for consultation: [...] daily. ETOH: denies. Single; lives independently, in [place]. FAMILY HISTORY: Father: in his 70's of [...] outpatient hemodialysis, albeit at a younger age. [facility] CC: Jam Hurt D.O., [facility] Olegario Peng M.D. ose Monterroso V RDN [...] Needs: (based on 70 kg) Kcal needs: 8614-2194 Kcals/day Protein needs:75-90 grams of protein/day Fluid goal:1401-4272 cc fluid per day, restriction for HD [...] in 1 days. Available as needed, ext [phone] Assessment: Diet Order: For your reference, current, [...] He is due to be released from [facility] next year and she hopes to see him after that. Fears/Worries: What are your biggest fears and worries about the future with your health? Burdening others She noted that pain is not something that bothers her. Her baseline pain is 6-7/10. Another concern is not being able to be as spontaneous now that she is on dialysis. She values fara barreto able to picker/puller and go to the [facility] in [place], and the idea of planning a t rip and planning her dialysis there, etc I s going to be an adjustment. Function: None of the above Tradeoffs: If you become sicker, how much are you willing to go through for the possibility of gaining more time? Be in the ICU, Be uncomfortable, Have a feeding tube and Live in a fci Family: How much do your proxy and family know about your priorities and wishes? Some discussion but incomplete Goals and Plan of Medical Care: Some limitations on diagnostic treatment of condition- balanced with quality of life JENNIFER Fontanez 11/10/17 10:17 lan of Care - Deepa Pham, AIRLINE OPERATIONS AGENT - 11/09/2017 4:14 PM PSTProblem: Patient Care [...] for home health services obtained. TEJAL contacted [facility] in [facility] ([phone]) regarding new referral. Patient is followed by MARLYN Womack at [facility], and [facility] is not able to admit to services without an MD to [facility]. TEJAL then contacted [facility] who states that the Dr. Hurt will follow the patient, how ever he is out of the office until 11/22, thus will not be able to sign orders until that dutch e. TEJAL called [facility] and informed of MD to follow and faxed referral with c onfirmation of receipt placed in ghost chart. TEJAL then reached out to the Public Health Nurse at [facility] Emili Cueva [phone] who states that she is able to [...] the patient with transportation to the patient's [facility] dialysis appointment tomorrow at 1300. TEJAL faxed medical records to Emili at [facility] ( f:[phone]) with confirmation of receipt placed in ghost [...] Alexander RN at 11/10/2017 11:27 AM PSTPlan [facility] - Tamara Moreira RRT - 11/09/2017 [...] room air. No prn treatments taken. lan [facility] - Cathi Rodriguez RN - 11/09/2017 [...] pain to her RU chest; medicated w/1 [place] (5's) PRN; appeared to be effective as [...] chest from incision, relief noted with 1 [place]. Trace edema in BLE. Independen t in room. Calls appropriately to make needs known. IV removed intact with no complication s noted. AVS and RX reviewed with patient, verbalized understanding. Stressed the importanc e of pt needing to eat. Escorted out in wheelchair with staff. Discharged home with [employer] driving her. Nikki's spirits were lifted this [...] 217-232 mg/dL. Pain managed with administration of [place] 5-325 mg once after surgery. lan of [facility] - Yina Altman, RUPA - 11/08/2017 4:28 [...] needed. PEP used with encouragement. lan of [facility] - Pita Echavarria RN - 11/08/2017 3:10 PM PSTDischarge Planning: TEJAL received call from Jossie at [facility] in [place], [place] inquiring about patient d ischarge status. Jossie also inquiring about the patient's hemodialysis and whether or not it has been set up at the facility in [place]. TEJAL contacted [facility] and confirmed that the patient has been [...] CM "I'm not shayna g to a fci". CM discussed follow up with dialysis as she is new to HD. CM informe d patient that this CM has been in contact with dialysis in [place]. Patient states "Ther e is one on the res.". CM confirmed that there is a [facility] located on the [facility] ion and that this CM has been in contact with them. Patient then stated to this CM "if you already knew they were there then why did you ask me about it?". At that point CM was dismi ssed from room by patient. CM returned call to [facility] at [facility] and informed that the patient has adamantly refus ed SNF at discharge. Disposition: Home with outpatient hemodialysis follow up. Electronically signed by: Pita Alexander RN 11/08/2017 15:41 p Note - John Leo MD - 11/08/2017 1:36 PM PSTOPERATIVE NOTE Pt. Name/Age/: Ara Tilley 72 y.o. 1945 [facility]. Record Number: [id number] Date of admission: 11/01/2017 Date of Operation/Procedure: 11/08/2017 Pre-Op Diagnosis Codes: end stage renal disease POSTOP DIAGNOSIS: Post-Op Diagnosis Codes: * End stage renal disease on dialysis (HCC) [N18.6, Z99.2] Surgeon: Nora Leo MD Lead Business Systems Analyst(s): none Anesthesia Provider(s): Anesthesiologist: Vinnie Last MD [...] Signed by: Nora Leo MD, 11/08/2017 13:36 [facility] rief Op Note - Nora Leo MD - 11/08/2017 1:34 PM PSTFormatting of this note might be different from the orig inal. Brief Operative Note Ara Tilley 72 y.o. female 1945 [id number] Proc. Date 11/08/2017 Preop Dx end stage renal disease Postop Dx * End stage renal disease on dialysis (HCC) [N18.6, Z99.2] Procedure Tunneled Hemodialysis Catheter Placement Anesthesia General Surgeon Nora Leo MD - Primary Mosaicist EBL 10cc Findings 28cm tunneled HD catheter placed into right internal jugular vein Complications none Specimens * No specimens in log * Drains Electronically signed by: Nora Leo MD 11/08/2017 13:34 [facility] CAMPUSElectronically signed by Nora Leo MD at 2017 [...] and remains free of falls. lan of [facility] - Tamara Moreira, RUPA - 11/07/2017 3:14 [...] given for use on own. lan of [facility] - Artur Diamond RN - 11/07/2017 2:20 [...] to monitor and treat as needed. lan [facility] - Danni Bowman RN - 11/05/2017 [...] Echo completed today at bedside. lan of [facility] - Liam Goodwin, AIRLINE OPERATIONS AGENT - 11/05/2017 10:05 AM PSTProblem: Patient Care [...] and appeared to be crying. lan of [facility] - Collette Dunn - 11/05/2017 7:25 AM PSTFaxed referral to [facility]. Electronically signed by: Collette Shanks 11/05/2017 7:25 Received a call from Anayeli @ [facility] stating she will be on stand by IF Nikki needs to go her way. HD will need to be set up prior. This CM let Anayeli know that Nikki will probably discharge home. Electronically signed by: Collette Shanks 11/05/2017 12:45 lan of [facility] - Gregg Castro RN - 11/05/2017 3:47 [...] monitor and treat as needed. lan of [facility] - Tamara Lawson, AIRLINE OPERATIONS AGENT - 11/04/2017 5:59 PM PSTProblem: Patient Care [...] using PEP on her own. lan of [facility] Ashlie Valverde RN - 11/04/2017 4:00 PM PSTHD initiated per NxStage machine, RIJ dialysis access, rates as ordered. lan of [facility] Queenie Walker RN - 11/04/2017 3:17 [...] a safe manner Outcome: Hollis Melton from [facility] called to check up on patient so [...] needs AV shunt. Spiritual Evaluation: Traditional and Congregational Spiritual Intervention: Active listening, pastoral presence. Spiritual Outcomes: Patient was grateful for the Lumber Hacker's visit. Spiritual Goals / Follow-up: Will see the patient as requested. If there are any other spiritual care issues that arise, please contact finish mixer. lan of Care - Venkatesh Rosario, AIRLINE OPERATIONS AGENT - 11/03/2017 11:49 AM PSTProblem: Patient Care [...] of health. VSS. HR SR/RBBB c PACs. [place] controls chronic back pain well. Lungs very [...] improved 99%, RN notified of findings. lan [facility] - Kristen Irving RN - 11/02/2017 [...] at midnight. Son staying at bedside. lan [facility] - Sharon Rosado RN - 11/02/2017 2:44 PM PSTProblem: Discharge Planning Goal: Patient will be discharged in a safe manner Outcome: Improving This CM met with patient, her spouse, and sisters' to discuss her d/c plan. Patient was sleeping so talked with her and family. Patient lives with her spouse in [place] and per one of the sister's, she [...] and so has only met with the [facility] RN meera Mao once and they feel she will need to be followed up closer since it is anticipat ed that she will be set up for new ongoing dialysis from here on out. She is planning on using [facility] in [place] for her dialysis needs once discharged. This CM called and spoke with Linh at [facility], and she confirmed that patient ch anged her PA to [facility] recently (called patient access and had Leatha change it in EPIC). She had just recently seen her PCP, Nan Bruno on Oct 07. Linh also stated that she gets her 11 meds there as well. Per Linh, the [facility] Rep went out to the home to [...] will be needing to get established with [facility] in [place]. Electronically signed by: Sharon Rosado RN 11/02/2017 [...] | | PERMACATH | | PST | ([facility]) | | + +--------+ + + + [...] ST. | [address] | [place] | [phone] | | [facility] | | [address] | | | - LABORATORY | | [...] [address] | [place] | [phone] | | [facility] | | [address] | | | - LABORATORY | | [...] [address] | [place] | [phone] | | [facility] | | [address] | | | - LABORATORY | | [...] not | 15 (L)Comment: | >=60 | [facility] | | | | GLOMERULAR FILTRATION | mL/min/1.73m2 | [facility] | | | [place] | RATE,ESTIMATED | | MEDICAL | | | | mL/min/1.44j3Vugy than | | CENTER - | | [...] [address] | [place] | [phone] | | [facility] | | [address] | | | - LABORATORY | | [...] [address] | [place] | [phone] | | [facility] | | [address] | | | - LABORATORY | | [...] [address] | [place] | [phone] | | [facility] | | [address] | | | - LABORATORY | | [...] an appended report. | mL/min | [facility] | | | | These results have been | | MEDICAL | | | | appended to a previously | | CENTER - | | | | final verified report. | | LABORATORY | | + + + + + + | Creatinine, | 34Comment: This is an | mg/dL | [facility] | | | Urine | appended report. These | | [facility] | | | | results [...] + | [facility] | [address] | [place] | [phone] | | [facility] | | [address] | | | - LABORATORY | | [...] + | [facility] | [address] | [place] | [phone] | | [facility] | | [address] | | | - LABORATORY | | [...] [address] | [place] | [phone] | | [facility] | | [address] | | | - LABORATORY | | [...] + | [facility] | [address] | [place] | [phone] | | [facility] | | [address] | | | - LABORATORY | | [...] [facility] | | | [place] | RATE,ESTIMATED | | MEDICAL | | | | mL/min/1.89r3Pcru than | | CENTER - | | [...] [address] | [place] | [phone] | | [facility] | | [address] | | | - LABORATORY | | [...] [address] | [place] | [phone] | | [facility] | | [address] | | | - LABORATORY | | [...] | [facility] [facility] | [address] | [place] | [phone] | | [facility] | | [address] | | | - LABORATORY | | [...] [address] | [place] | [phone] | | [facility] | | [address] | | | - LABORATORY | | [...] [address] | [place] | [phone] | | [facility] | | [address] | | | - LABORATORY | | [...] + | [facility] | [address] | [place] | [phone] | | [facility] | | [address] | | | - LABORATORY | | [...] + | [facility] | [address] | [place] | [phone] | | [facility] | | [address] | | | - LABORATORY | | [...] ST. | [address] | [place] | [phone] | | [facility] | | [address] | | | - LABORATORY | | [...] [address] | [place] | [phone] | | [facility] | | [address] | | | - LABORATORY | | [...] 2.24 (H) | 0.60 - 1.30 | [facility] | | | | | mg/dL | [facility] | | | | | | MEDICAL | | | | | | CENTER - | | | | | | LABORATORY | | + + + + + + | eGFR if not | 22 (L)Comment: | >=60 | [facility] | | | | GLOMERULAR FILTRATION | mL/min/1.73m2 | [facility] | | | [place] | RATE,ESTIMATED | | MEDICAL | | | | mL/min/1.09l8Xhow than | | CENTER - | | [...] + | [facility] | [address] | [place] | [phone] | | [facility] | | [address] | | | - LABORATORY | | [...] [address] | [place] | [phone] | | [facility] | | [address] | | | - LABORATORY | | [...] [address] | [place] | [phone] | | [facility] | | [address] | | | - LABORATORY | | [...] + | [facility] | [address] | [place] | [phone] | | [facility] | | [address] | | | - LABORATORY | | [...] + | [facility] | [address] | [place] | [phone] | | [facility] | | [address] | | | [...] ST. | [address] | [place], [place] | [phone] | | [facility] | | [address] | | | - LABORATORY | | [...] [address] | [place] | [phone] | | [facility] | | [address] | | | - LABORATORY | | [...] + | [facility] | [address] | [place] | [phone] | | [facility] | | [address] | | | - LABORATORY | | [...] [facility] | | | [place] | RATE,ESTIMATED | | MEDICAL | | | | mL/min/1.32h6Esmk than | | CENTER - | | [...] ST. | [address] | [place], [place] | [phone] | | [facility] | | [address] | | | - LABORATORY | | [...] [address] | [place] | [phone] | | [facility] | | [address] | | | - LABORATORY | | [...] [address] | [place] | [phone] | | [facility] | | [address] | | | - LABORATORY | | [...] + | [facility] | [address] | [place] | [phone] | | 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 | |Tricuspid Valve | |Ocap-bw-sieytebb tricuspid regurgitation suggestive of a mildly elevated [...] LA Volume: 60.67 ml | | EF Luurxrqtx52% | | | | Left Ventricle | [...] | | POC | | | [facility] | | | | [...] [address] | [place] | [phone] | | [facility] | | [address] | | | - LABORATORY | | [...] + | [facility] | [address] | [place] | [phone] | | [facility] | | [address] | | | - LABORATORY | | [...] ST. | [address] | [place], [place] | [phone] | | [facility] | | [address] | | | - LABORATORY | | [...] [address] | [place] | [phone] | | [facility] | | [address] | | | - LABORATORY | | [...] + | [facility] | [address] | [place] | [phone] | | [facility] | | [address] | | | - LABORATORY | | [...] [facility] | | | [place] | RATE,ESTIMATED | | MEDICAL | | | | mL/min/1.51b9Msno than | | CENTER - | | [...] [address] | [place] | [phone] | | [facility] | | [address] | | | - LABORATORY | | [...] ST. | [address] | [place] | [phone] | | [facility] | | [address] | | | - LABORATORY | | [...] [address] | [place] | [phone] | | [facility] | | [address] | | | - LABORATORY | | [...] [address] | [place] | [phone] | | [facility] | | [address] | | | - LABORATORY | | [...] | [address] [facility] | [address] | [place] | [phone] | | [facility] | | [address] | | | - LABORATORY | | [...] + | [facility] [facility] | [address] | [place] | [phone] | | [facility] | | [address] | | | - LABORATORY | | [...] [address] | [place] | [phone] | | [facility] | | [address] | | | - LABORATORY | | [...] [address] | [place] | [phone] | | [facility] | | [address] | | | - LABORATORY | | [...] + | [facility] | [address] | [place] | [phone] | | [facility] | | [address] | | | - LABORATORY | | [...] | | | | | | [facility] | | | | | | [...] [facility] | | | | | | STMariaenla [facility] | | | | | | [...] [address] | [place] | [phone] | | [facility] | | [address] | | | - LABORATORY | | [...] | | | | | mg/dL | [facility] | | | | | | MEDICAL | | | | | | CENTER - | | | | | | LABORATORY | | + + + + + + | eGFR if not | 20 (L)Comment: | >=60 | [facility] | | | | GLOMERULAR FILTRATION | mL/min/1.73m2 | [facility] | | | [place] | RATE,ESTIMATED | | MEDICAL | | | | mL/min/1.94l7Ftbf than | | CENTER - | | [...] | | | | | mg/dL | [facility] | [...] [address] | [place] | [phone] | | [facility] | | [address] | | | - LABORATORY | | [...] + | [facility] | [address] | [place] | [phone] | | [facility] | | [address] | | | - LABORATORY | | [...] ST. | [address] | [place], [place] | [phone] | | [facility] | | [address] | | | - LABORATORY | | [...] [address] | [place] | [phone] | | [facility] | | [address] | | | - LABORATORY | | [...] ST. | [address] | [place], [place] | [phone] | | [facility] | | [address] | | | - LABORATORY | | [...] + | [facility] | [address] | [place] | [phone] | | [facility] | | [address] | | | - LABORATORY | | [...] [address] | [place] | [phone] | | [facility] | | [address] | | | - LABORATORY | | [...] [address] | [place] | [phone] | | [facility] | | [address] | | | - LABORATORY | | [...] + | [facility] | [address] | [place] | [phone] | | [facility] | | [address] | | | - LABORATORY | | | | + + + + + CT Chest wo Contrast (11/03/2017 10:15 AM PST) + + | Specimen | + + | | + + + + + | Narrative | Performed At | + + + | TECHNIQUE: Noncontrast axial CT imaging was obtained through the | [facility] | | chest with coronal and [...] [address] | [place] | [phone] | | [facility] | | [address] | | | - LABORATORY | | [...] + | [facility] | [address] | [place] | [phone] | | [facility] | | [address] | | | - LABORATORY | | [...] [address] | [place] | [phone] | | [facility] | | [address] | | | - LABORATORY | | [...] + | [address] [facility] | [address] | [place] | [phone] | | [facility] | | [address] | | | - LABORATORY | | [...] + | Performed at: 01 - [facility] [place] [address], | REFERENCE LAB | | [place], [place] [id number] Manager Mission: Ernie Lee MD, Phone: | [facility] | | [phone] | | + + + + + + + + | Performing | Address | City/State/Zipcode | Phone Number | | Organization | | | | + + + + + | REFERENCE LAB | [address] | [place], [place] | [phone] | | [facility] | [place] | [address] | | + + + + + [...] [address] | [place] | [phone] | | [facility] | | [address] | | | - LABORATORY | | [...] + | [facility] | [address] | [place] | [phone] | | [facility] | | [address] | | | - LABORATORY | | [...] [address] | [place] | [phone] | | [facility] | | [address] | | | - LABORATORY | | [...] | | | | > 0.9 The [facility] | | | | | | recommends that a | | | | | | positive HCV antibody | | | | | | result be followed up | | | | | | with a HCV Nucleic Acid | | | | | | Amplification test | | | | | | ([id number]). | | | | + + + + + + + + | Specimen | + + | Blood | + + + + + | Narrative | Performed At | + + + | Performed at: - [address] [address], | REFERENCE LAB | | [place], [place] [id number] Manager Mission: Ernie Lee MD, Phone: | [facility] | | [phone] | | + + + + + + + + | Performing | Address | City/State/Zipcode | Phone Number | | Organization | | | | + + + + + | REFERENCE LAB | [address] | [place], [place] | [phone] | | [facility] | [place] | [address] | | + + + + + [...] | | GLOMERULAR FILTRATION | mL/min/1.73m2 | [facility] | | | [place] | RATE,ESTIMATED | | MEDICAL | | | | mL/min/1.56h0Uzhj than | | CENTER - | | [...] [address] | [place] | [phone] | | [facility] | | [address] | | | - LABORATORY | | [...] + | [facility] | [address] | [place] | [phone] | | [facility] | | [address] | | | - LABORATORY | | [...] [address] | [place] | [phone] | | [facility] | | [address] | | | - LABORATORY | | [...] [address] | [place] | [phone] | | [facility] | | [address] | | | - LABORATORY | | [...] ST. | [address] | [place], [place] | [phone] | | [facility] | | [address] | | | - LABORATORY | | [...] [address] | [place] | [phone] | | [facility] | | [address] | | | - LABORATORY | | [...] [address] | [place] | [phone] | | [facility] | | [address] | | | - LABORATORY | | [...] + | [facility] | [address] | [place] | [phone] | | [facility] | | [address] | | | - LABORATORY | | [...] [address] | [place] | [phone] | | [facility] | | [address] | | | - LABORATORY | | [...] [address] | [place] | [phone] | | [facility] | | [address] | | | - LABORATORY | | [...] [address] | [place] | [phone] | | [facility] | | [address] | | | - LABORATORY | | [...] [address] | [place] | [phone] | | [facility] | | [address] | | | - LABORATORY | | [...] [address] | [place] | [phone] | | [facility] | | [address] | | | - LABORATORY | | [...] | [address] [facility] | [address] | [place] | [phone] | | [facility] | | [address] | | | - LABORATORY | | [...] ST. | [address] | [place], [place] | [phone] | | [facility] | | [address] | | | - LABORATORY | | [...] [address] | [place] | [phone] | | [facility] | | [address] | | | - LABORATORY | | [...] + | [facility] | [address] | [place] | [phone] | | [facility] | | [address] | | | - LABORATORY | | [...] [address] | [place] | [phone] | | [facility] | | [address] | | | - LABORATORY | | [...] ST. | [address] | [place], [place] | [phone] | | [facility] | | [address] | | | - LABORATORY | | [...] + | [facility] | [address] | [place] | [phone] | | [facility] | | [address] | | | - LABORATORY | | [...] [facility] | | | [place] | RATE,ESTIMATED | | MEDICAL | | | | mL/min/1.98j8Ffca than | | CENTER - | | [...] ST. | [address] | [place], [place] | [phone] | | [facility] | | [address] | | | - LABORATORY | | [...] [address] | [place] | [phone] | | [facility] | | [address] | | | - LABORATORY | | [...] - 1.030 | [facility] | | | [place], | | | [facility] | | [...] + | [facility] | [address] | [place] | [phone] | | [facility] | | [address] | | | - LABORATORY | | [...] | | | | | | [employer] | | | | | [...] [address] | [place] | [phone] | | [facility] | | [address] | | | - LABORATORY | | [...] [address] | [place] | [phone] | | [facility] | | [address] | | | - LABORATORY | | [...] + | [facility] | [address] | [place] | [phone] | | [facility] | | [address] | | | - LABORATORY | | [...] + | [facility] | [address] | [place] | [phone] | | [facility] | | [address] | | | - LABORATORY | | [...] [address] | [place] | [phone] | | [facility] | | [address] | | | - LABORATORY | | [...] [address] | [place] | [phone] | | [facility] | | [address] | | | - LABORATORY | | [...] [address] | [place] | [phone] | | [facility] | | [address] | | | - LABORATORY | | [...] [address] | [place] | [phone] | | [facility] | | [address] | | | - LABORATORY | | [...] | | | | | | [employer] | | | | | [...] + + | Performing | Address | City/State[facility] | Phone Number | | Organization | | | | + + + + + | [facility] | [address] | [place] | [phone] | | [facility] | | [address] | | | - LABORATORY | | [...] | | | | (AA) | | [facility] | | | | | | MEDICAL | | | | | | CENTER - | | | | | | LABORATORY | | + + + + + + | Culture | Streptococcus | | [facility] | | | | infantarius ssp. coli | | [facility] | | | | (S.bovis) [...] [address] | [place] | [phone] | | [facility] | | [address] | | | - LABORATORY | | [...] [address] | [place] | [phone] | | [facility] | | [address] | | | - LABORATORY | | [...] [facility] | | | [place] | RATE,ESTIMATED | | MEDICAL | | | | mL/min/[id number] than | | CENTER - | | [...] [address] | [place] | [phone] | | [facility] | | [address] | | | - LABORATORY | | [...] ST. | [address] | [place], [place] | [phone] | | [facility] | | [address] | | | [...] + | [facility] | [address] | [place] | [phone] | | [facility] | | [address] | | | - LABORATORY | | [...] [address] | [place] | [phone] | | [facility] | | [address] | | | - LABORATORY | | [...] for comparison only - no result from [place]. | [facility] | + + + [...] for comparison only - no result from [facility]. | [facility] | + + + [...] | | | | | | use [place] 10/325 if ordered. If | | | [...] | | | | | | | 6898-6470 Use NIGHT DOSE for | | | | | | | doses scheduled: HS, 3AM, | | | | | | | Nighttime 2256-0806, | | | | | | + [...] scheduled: AC, | | | NPO, Daytime 4552-4905 Use NIGHT | | | DOSE for doses scheduled: | | | HS, 3AM, Nighttime 9997-6778, | | + +---+ | | | [...] | | | | | | Infiltration, TAFFY PULLER, Starting | | | | | | [...] | | | DAY, First dose on [facility] 11/04/17 | | AM PST | | [...] | | | DAILY, First dose on [facility] 11/04/17 | | AM PST | | [...]
--- OUTSIDE RECORDS SUMMARY | ~2020-03-23 | XMS | Encounter Summary ---
Demographics + + + | Address | [address] | | | [place] [address] | + + + | Home Phone [...] + | Author | [facility] | | | and [place]it[place] | + + + | Organization | [facility] | | | and [place] | + + + | Address | Unknown | + + + | Phone | Unavailable | + + + Support + + + + + | Name | Relationship | Address | Phone | + + + + + | India Tilley | ECON | [address] | | | | | [place], [place] | | | | | [address] | | + + + + + [...] Providers + +------+ + | Care Production Operations Manager Name | Role | Phone [...] | (Primary Dx); | | | | [place], [place] | [place] [address] | Arthritis; Other | | | | [address] | [phone] | back pain; History | | | | [phone] | | of blood clots; | | [...]
--- OUTSIDE RECORDS SUMMARY | ~2020-03-23 | XMS | Encounter Summary ---
Demographics + + + | Address | [address] | | | [place] [address] | + + + | Home Phone [...] + + | Author | [facility] | | | and [place] | + + + | Organization | [facility] | | | and [place] | + + + | Address | Unknown | + + + | Phone | Unavailable | + + + Support + + + + + | Name | Relationship | Address | Phone | + + + + + | India Tilley | ECON | [address] | | | | | [place], [place] | | | | | [address] | | + + + + + [...] Providers + +------+ + | Care Drug Abuse Resistance Education Officer Name | Role | Phone | + +------+ + | Renato Pierson | PCP | | + +------+ + Encounter Details +--------+ + + + + | Date | Type | Department | Care Team | Description | +--------+ + + + + | 04/26/ | Orders Only | [facility] | Gopi Muñoz | | | 2019 | | NEPHROLOGY [address] | M, DO [address] | | | | | [address] | [address] [place] | | | | | [place], [place] | [place] [address] | | | | | [address] | [phone] | | | | | [phone] | | | +--------+ + + + [...]
--- OUTSIDE RECORDS SUMMARY | ~2020-03-23 | XMS | Encounter Summary ---
Demographics + + + | Address | [address] | | | [place] [address] | + + + | Home Phone [...] + + | Author | [facility] | | | and [place] | + + + | Organization | [facility] | | | and [place] | + + + | Address | Unknown | + + + | Phone | Unavailable | + + + Support + + + + + | Name | Relationship | Address | Phone | + + + + + | India Tilley | ECON | [address] | | | | | [place], [place] | | | | | [address] | | + + + + + [...] Team Providers + +------+ + | Care Primer Powder Blender Wet Name | Role | Phone | + [...] | | disease) on | [address] | [place], [place] | | | | | dialysis | [address] | [address] | | | | | (HCC) | [address] | Phone: | | | | | Procedures | [place], [place] | [phone] | | | | | IR Inj | [address] | Fax: | | | | | Dialysis | Phone: | | | | | | Circuit | [phone] | | | | | | | Fax: | | | | | | | [phone] | | + +--------+ + + + [...] + + | 07/31/ | Telephone | [facility] | Louise Fink, | Procedure | | 2019 | | VASCULAR SURGERY | RN | | | | | [address] | | | | | | [place] | | | | | | [address] | | | | | | [phone] | | | +--------+ + + + [...] patient is experiencing prolonged bleeding post fistulagram, [facility] Dr Moseley is requesting a fistulagram. Called [...] Expires: | | | | | dialysis ([facility]) | 07/31/2020 | + +---------+--------+ + + documented as of this encounter Visit Diagnoses + + | Diagnosis | + + | ESRD (end stage renal disease) on dialysis (HCC) - Primary End stage renal disease | + + documented in this encounter
--- OUTSIDE RECORDS SUMMARY | ~2020-03-23 | XMS | Encounter Summary ---
Demographics + + + | Address | [address] | | | [place] [address] | + + + | Home Phone [...] Author | [facility] | | | and [place]it[place] | + + + | Organization | [facility] | | | and [place] | + + + | Address | Unknown | + + + | Phone | Unavailable | + + + Support + + + + + | Name | Relationship | Address | Phone | + + + + + | India Tilley | ECON | [address] | | | | | [place], [place] | | | | | [address] | | + + + + + [...] Team Providers + +------+ + | Care Upholstery Mechanic Name | Role | Phone | + +------+ + PCP | Unavailable | + +------+ + Encounter Details +--------+ + + + + | Date | Type | Department | Care Team | Description | +--------+ + + + + | 03/11/ | Abstract | [facility] | Kelsea, | | | 2017 | | NEPHROLOGY [address] | KAYLA Lopez [address] | | | | | [address] | [address] | | | | | [place] | [address] [place] | | | | | [address] | [address] | | | | | [phone] | | | +--------+ + + + [...] [facility]abs for consult: need to fax to [facility] closer t o appt. RU documented in this encounter Plan of Treatment Not on filedocumented as of this encounter Procedures + +--------+ + + + | Procedure Name | Priori | Date/Time | Associated Diagnosis | Comments | | | ty | | | | + +--------+ + + + | EXTERNAL LAB: [facility] | Routin | 03/09/2017 | | Results [...] +--------+ + + + | EXTERNAL LAB: [facility] | Routin | 03/09/2017 | | Results [...] +--------+ + + + | EXTERNAL LAB: [facility] | Routin | 03/09/2017 | | Results [...]
--- OUTSIDE RECORDS SUMMARY | ~2020-03-23 | XMS | Encounter Summary ---
Demographics + + + | Address | [address] | | | [place] [address] | + + + | Home Phone [...] + + + | Author | and [facility] | | | and [place]it[place] | + + + | Organization | and [facility] | | | and [place] | + + + | Address | Unknown | + + + | Phone | Unavailable | + + + Support + + + + + | Name | Relationship | Address | Phone | + + + + + | India Tilley | ECON | [address] | | | | | [place], [place] | | | | | [address] | | + + + + + [...] Team Providers + +------+ + | Care Driller'S Offsider Name | Role | Phone | + [...] | | | | | [address] | [place] | | | | | [place] | [address] | | | | | [address] | | | | | | [phone] | Vinnie Last MD | | | | | | [address] | | | | | | [place], [place] | | | | | | [address] | | | | | | | [...] +----+---+ + + | | 1 | [place] | | | | 3 | 43-degrees | | | | 2 | | | | | 1 | | | +----+---+ + + | | 1 | First | | | | 3 | [address] | | | | 2 | | | | | 8 | | | +----+---+ + + | | 1 | [place] off | | | | 5 | [...] 01/04/18 1728 by | | eral | [id number] catheter system; | Linh Gamez RN | [...] EVALUATION Estefani Tilley 72 y.o. female 1945 [id number] Procedure(s) Right Transposed Basilic Vein to Proximal [...] signed by Lyndsay Mckeon DO 01/04/2018 15:56 [facility] Lyn[facility] Mckeon DO at [...] EVALUATION Estefani Tilley 72 y.o. female 1945 [id number] Procedure(s): Right Transposed Basilic Vein to Proximal [...] ECGs available Confirmed by KEN ELLISON MD ([id number]) on 10/02/2017 7:49:20 AM . (+) hypertension, [...]
--- OUTSIDE RECORDS SUMMARY | ~2020-03-23 | XMS | Encounter Summary ---
Demographics + + + | Address | [address] | | | [place] [address] | + + + | Home Phone | | + + + | Preferred Language | Unknown | + + + | Marital Status | Single | + + + | Congregational Affiliation | Unknown | + + + | Race | Unknown | + + + | Ethnic Group | Unknown | + + + Author + + + | Author | [facility] | | | and [place] | + + + | Organization | [facility] | [...] [place], [place] | | | | | [address] | | + + + + + [...] Team Providers + +------+ + | Care Animal Humane Agent Supervisor Name | Role | Phone | + +------+ + PCP | Unavailable | + +------+ + Encounter Details +--------+ + + + + | Date | Type | Department | Care Team | Description | +--------+ + + + + | 12/20/ | [facility] | [facility] | Patricia, | | | 2008 - | Encounter | MED CTR CANCER | Venkatesh Forte MD [address] | | | | | CENTER [address] | [address] | | | 01/10/ | | [place] | [place] [address] | | | 2008 | | [address] | [phone] | | | | | [phone] | | | +--------+ + + + [...]
--- OUTSIDE RECORDS SUMMARY | ~2020-03-23 | XMS | Encounter Summary ---
Demographics + + + | Address | [address] | | | [place] [address] | + + + | Home Phone [...] | [facility] | | | and [place] | + + + | Organization | [facility] | | | and [place] | + + + | Address | Unknown | + + + | Phone | Unavailable | + + + Support + + + + + | Name | Relationship | Address | Phone | + + + + + | India Tilley | ECON | [address] | | | | | [place], [place] | | | | | [address] | | + + + + + [...] Providers + +------+ + | Care Warehouse Trainer Name | Role | Phone | [...] + + | 06/14/ | Telephone | [facility] | Tabatha Patel, | Care Coordination | | 2019 | | INFECTIOUS DISEASE | Food And Beverage Assistant Manager | (Patient Timeline - | | | | [address] | | Line Care/Provider | | | | [place], [place] | | Management ) | | | | [address] | | | | | | [phone] | | | +--------+ + + + [...] Miscellaneous Notes Telephone Encounter - Tabatha Patel Food And Beverage Assistant Manager - 07/18/2019 8:46 AM PSTI attempte d to get a hold of patient. I left message requesting for patient to return my call at [facility]. Callback number was provided in message,[phone] option 5. I will wait for callback. elepho ne Encounter - Tabatha Patel Food And Beverage Assistant Manager - 06/27/2019 9:32 AM PDTPatient has appoin tment today 06/27/[address] Jung. I attempted to get a hold of Emili. I was F/u to see if patient had biposy done at [facility]. I left message requesting callback. I also attempted to get a hold of patient. Message was left for patient to return call to [facility]. Callback # was provided. ecarol ne Encounter - Tabatha Patel Medical Assistant - 06/27/2019 9:28 AM PDT06/21/2019: Received VM from Emili at [facility] stating ,patient is at [facility] inpatient. She was a dmitted in [facility] due to missing dialysis. Emili spoke to Dr. Braxton and stated that she was managing line care. Dr. Braxton offered to write orders so patient can have procedure d one while she is at [facility]. She needs orders, and progress note. F# [phone]. If this is sent then they will do at [facility] if not received appointment currently with [facility] will stay the same. ---Orders were faxed to [phone] on 06/21/2019. elepho ne Encounter - Tabatha Patel Food And Beverage Assistant Manager - 06/14/2019 10:26 AM PDTI returned LISA Mock call at [phone]. I let her know that patient came [...] Guided Biopsy and that was faxed to [facility] melissa. Also, I let her know that note from office visit is not yet completed., but when com plete I will fax it to her for their records. She provided me with F# of [phone]. -Emili then provided me with patient background [...] to review. elephone Encounter - Tabatha Cruz Food And Beverage Assistant Manager - 06/14/2019 10:00 AM ROSACalcurly: LISA oMck Relationship to Patient: RN from [facility] Call Back Number: [phone] Message: Emili RN from [facility] called office and left message on MA [...] we can get that in our system [facility] can be an additional payer for that. If you can call me back at [phone]. If you have the records available can you please fax to r medical records fax. F# is [phone], and I will talk to you later."Electronically sign ed by Tabatha Patel, Food And Beverage Assistant Manager at 06/14/2019 10:51 AM PDTdocumented in this encounte r Plan of Treatment Not on filedocumented as of this encounter Visit Diagnoses Not on filedocumented in this encounter
--- OUTSIDE RECORDS SUMMARY | ~2020-03-23 | XMS | Encounter Summary ---
Demographics + + + | Address | [address] | | | [place] [address] | + + + | Home Phone [...] | Author | [facility] | | | and [place] | + + + | Organization | [facility] | | | and [place] | + + + | Address | Unknown | + + + | Phone | Unavailable | + + + Support + + + + + | Name | Relationship | Address | Phone | + + + + + | India Tilley | ECON | [address] | | | | | [place], [place] | | | | | [address] | | + + + + + [...] Team Providers + +------+ + | Care Moving Van Driver Name | Role | Phone | [...] + + | 12/04/ | Anesthesia | [facility] | Petros Garrido | | | 2019 | Event | MED CTR OR INTRA OP | MD Zuleima [address] | | | | | [address] | [address] [facility] | | | | | [place] | [place] [address] | | | | | [address] | [phone] | | | | | [phone] | | | +--------+ + + + + Anesthesia Record + + + + + | Procedure Name | Responsible | Anesthesia Start | Anesthesia Stop Time | | | Anesthesiologist | Time | | + + + + + | ORIF HIP | Tor Naguabolucien Garrido, | 12/04/18 1610 | 12/04/18 1732 [...] +----+---+ + + | | 1 | [place] | | | | 6 | 43-degrees | | | | 3 | | | | | 1 | | | +----+---+ + + | | 1 | First | | | | 6 | Inc/Proc St | | | | 3 | | | | | 4 | | | +----+---+ + + | | 1 | [place] off | | | | 6 | [...] 12/09/18 182 by | | eral | [id number]-[id number] catheter system; | Priti Burleson RN | [...] EVALUATION Estefani Tilley 73 y.o. female 1945 [id number] Procedure(s) ORIF HIP W/CANNULATED SCREWS (Right Hip) [...] signed by Petros Garrido MD 12/04/2018 17:34 [facility] nesthesia Procedure Notes - Petros Garrido [...] date/time: 12/04/2018 16:40 nesthesia Proced ure Petros Goomdan MD - 12/04/2018 4:36 PM PDTAssociated Order(s): [...] Estefani Zuniga Jarek 73 y.o. female 1945 [id number] Procedure(s): ORIF HIP W/CANNULATED SCREWS (Right Hip) [...] ECGs available Confirmed by TERRA HOLDEN, KEN ([id number]) on 10/02/2017 7:49:20 AM . (+) hypertension, [...] edited, Patient device removed ddendum Note - Pertos Garrido MD - 12/04/2018 5:38 PM PDT [...] 4:18 | | | | | Starting [place] 12/04/18 at 1618, | | PM PDT [...] mLs | | | | PRN, Starting [place] 12/04/18 at | | 19 4:10 | [...] | | | | | PRN, Starting [place] 12/04/18 at | | PM PDT | [...] 4:14 | | | | | Starting [place] 12/04/18 at 1614, | | PM PDT | | | | | Anesthesia Intra-op | | | | | | + +-------+ +--------+---+---+ +---+---+ | | | +---+---+ documented in this encounter"
--- OUTSIDE RECORDS SUMMARY | ~2020-03-23 | XMS | Encounter Summary ---
Demographics + + + | Address | [address] | | | [place] [address] | + + + | Home Phone [...] | [facility] | | | and [place]it[place] | + + + | Organization | [facility] | | | and [place] | + + + | Address | Unknown | + + + | Phone | Unavailable | + + + Support + + + + + | Name | Relationship | Address | Phone | + + + + + | India Tilley | ECON | [address] | | | | | [place], [place] | | | | | [address] | | + + + + + [...] Providers + +------+ + | Care Records Specialist Name | Role | Phone | + +------+ + PCP | Unavailable | + +------+ + Reason for Visit +--------+ + | Reason | Comments | +--------+ + | Other | Admission Records 06/20/2019-06/22/2019- [facility] . | +--------+ + Encounter Details +--------+ + + + + | Date | Type | Department | Care Team | Description | +--------+ + + + + | 06/27/ | Documentati | [facility] | Tabatha Patel, | Other (Admission | | 2019 | on | INFECTIOUS DISEASE | Broth Mixer | Records | | | | [address] [facility] | | 06/20/2019- | | | | [place], [place] | | [facility] | | | | [address] | | [facility] . ) | | | | [phone] | | | +--------+ + + + [...] documented as of this encounter Progress Notes Tabatha Patel Broth Mixer - 06/27/2019 10:44 AM PDTReceived records from [facility]. For patient admission from 06/20/2019-06/22/2019. Records were sent to scan. Yoko CMA. dosabiha villanueva in this encounter Plan of Treatment Not on filedocumented as of this encounter Visit Diagnoses Not on filedocumented in this encounter"
--- OUTSIDE RECORDS SUMMARY | ~2020-03-23 | XMS | Encounter Summary ---
Demographics + + + | Address | [address] | | | [place] [address] | + + + | Home Phone [...] | Author | [facility] | | | and [place]it[place] | + + + | Organization | [facility] | | | and [place] | + + + | Address | Unknown | + + + | Phone | Unavailable | + + + Support + + + + + | Name | Relationship | Address | Phone | + + + + + | India Tilley | ECON | [address] | | | | | [place], [place] | | | | | [address] | | + + + + + [...] Team Providers + +------+ + | Care Verification Engineer Name | Role | Phone | [...] [place] | | | | | | [address] | | | | | | [phone] | | | +--------+ + + + [...]
--- OUTSIDE RECORDS SUMMARY | ~2020-03-23 | XMS | Encounter Summary ---
Demographics + + + | Address | [address] | | | [place] [address] | + + + | Home Phone [...] + | Author | [facility] | | | and [place] | + + + | Organization | [facility] | | | and [place] | + + + | Address | Unknown | + + + | Phone | Unavailable | + + + Support + + + + + | Name | Relationship | Address | Phone | + + + + + | India Tilley | ECON | [address] | | | | | [place], [place] | | | | | [address] | | + + + + + [...] Providers + +------+ + | Care Home Designer Name | Role | Phone | [...] Services | General | Chronic | Gopi M, | Santos I, | | | Required | Surgery | kidney | DO [address] | , [address] | | | | | disease, | [address] | [address] | | | | | stage V | [address] | [place], | | | | | (HCC) | [place], | [place] [address] | | | | | | [place] [address] | Phone: | | | | | | Phone: | [phone] | | | | | | [phone] | Fax: | | | | | | Fax: | [phone] | | | | | | [phone] | | +--------+ + + + + + Encounter Details +--------+---------+ + + + | Date | Type | Department | Care Team | Description | +--------+---------+ + + + | 12/30/ | Office | [facility] | Santos Stephenson | Chronic kidney | | 2018 | Visit | SURGERY [address] | MD Kinga, FACS [address] | disease, stage V | | | | [address] [place], [place] | [facility] | (HCC) (Primary Dx) | | | | [address] | [place] [address] | | | | | [phone] | [phone] | | | | | | | [...] Same Day Surgery (corner of [address]) at 12:00pm. Your surgery is called AV [...] successful and comfortable surgery. Sign up for [employer]Library if you want easy access to your medical information online. You can: Review your medications, immunizations, allergies and medical history. View details of your past and upcoming appointments. Sign up for [employer] if you want easy access to your medical information online. Only you, your doctor and your health care team are permitted to view the information sent through [employer]. Through [employer] you can: ? Review your medications, immunizations, [...] different ways you can sign up for [employer]: ? The first way is to get online at: [email or web address] and sign up directly throug h the website prior to your appointment with us. You can call [phone] Sail ([phone]) if you have any questions or need assistance. ? The second way is through the [employer] lyudmila which can be accessed with any smart phone. Ju go to your lyudmila store and look up [employer] ? The third way is to do [...] number. documented in this encounter Progress Notes Field, Santos Donato MD, [facility] - 12/30/2017 10:00 AM PDTFormatting of this [...] ? Francisca Womack PA-C Who is your Roof Slater/Kidney Specialist ? Dr. Muñoz When was the [...] dialysis on Wednesday, Wednesday and Fridays in [place]. She states she has had breast cancer, had a LEFT side mastectomy. CARDIAC: Denies CT, chest pain or tightness. RISK: Never smoker, current 38 year diabetic. Family Hx of diabetes. States mother had kid cedric failure NICO: Patient has previously been diagnosed with sleep apnea. She had a sleep study performe d at [facility] but does not wear a CPAP [...] Date APPENDECTOMY EYE SURGERY 2008 HYSTERECTOMY MASTECTOMY 2005 left ear NOSE SURGERY 2008 SHUNT PLACEMENT/INSERTION N/A 11/08/2017 Procedure: Tunneled Hemodialysis Catheter Placement; Surgeon: Nora Leo MD; Location : [facility] MA[facility] OR Allergies Allergen Reactions Lisinopril [...] REPORT: PATIENT NAME : Estefani Tilley EQUIPMENT: SonSensGardte M-Turbo with 10-5 mHertz probe. INDICATIONS: Dialysis [...] edited this note. Karena Valle CMA 12/30/17 ISantos MD, FACS, personally performed the services described in this docume ntation, as scribed by Karena Valle CMA in my presence, and it is both accurate and complet e. Karena Valle CMA 12/30/2017 10:45 CC: Francisca Womack PA-C, Gopi Muñoz DO documented in this enc ounter Miscellaneous Notes Addendum Note - Awa Hart RN - 12/30/2017 10:00 AM PDT Addended by: AWA HART on : 12/30/2017 13:41 Modules accepted: Orders, SmartSet documented in this e ncounter Plan of Treatment Not on filedocumented as of this encounter Visit Diagnoses + + | Diagnosis | + + | Chronic kidney disease, stage V (HCC) - Primary Chronic kidney disease, Stage V | + + documented in this encounter
--- OUTSIDE RECORDS SUMMARY | ~2020-03-23 | XMS | Encounter Summary ---
Demographics + + + | Address | [address] | | | [place] [address] | + + + | Home Phone [...] | Author | [facility] | | | and [place] | + + + | Organization | [facility] | | | and [place] | + + + | Address | Unknown | + + + | Phone | Unavailable | + + + Support + + + + + | Name | Relationship | Address | Phone | + + + + + | India Tilley | ECON | [address] | | | | | [place], [place] | | | | | [address] | | + + + + + [...] Providers + +------+ + | Care Customer Service Consultant Name | Role | Phone [...] [place] | | | | | [address] | [address] | | | | | [phone] | | | +--------+ + + + [...] Referral packet received from Dora Bruno PA-C, [facility] to nephrology. Sent to Malik owens signed by Tatiana Rendon at 03/24/2017 1:05 PM PDTdocumented in this encounter Plan of Treatment Not on filedocumented as of this encounter Visit Diagnoses Not on filedocumented in this encounter"
--- OUTSIDE RECORDS SUMMARY | ~2020-03-23 | XMS | Encounter Summary ---
Demographics + + + | Address | [address] | | | [place] [address] | + + + | Home Phone [...] Author | [facility] | | | and [place]it[place] | + + + | Organization | [facility] | | | and [place] | + + + | Address | Unknown | + + + | Phone | Unavailable | + + + Support + + + + + | Name | Relationship | Address | Phone | + + + + + | India Tilley | ECON | [id number] | | | | | [place], [place] | | | | | [address] | | + + + + + [...] Team Providers + +------+ + | Care Electromedical Equipment Repairer Name | Role | Phone | + +------+ + PCP | Unavailable | + +------+ + Reason for Visit + +--------+ + | Reason | Onset | Comments | | | Date | | + +--------+ + | Dialysis | 06/03/ | | | (Asymptomatic) | 2018 | | + +--------+ + Encounter Details +--------+ + + + + | Date | Type | Department | Care Team | Description | +--------+ + + + + | 06/03/ | Telephone | [facility] | Darlin Moseley W, | Dialysis | | 2018 | | NEPHROLOGY [address] | MD [address] | (Asymptomatic) | | | | [address] | [address] [place] | | | | | [place], [place] | [place] [address] | | | | | [address] | [phone] | | | | | [phone] | | | +--------+ + + + [...] this encounter Miscellaneous Notes Telephone Encounter - Dori Romero RN - 06/03/2018 10:[address]oseley, patient i nstructed to report to [facility] in [place] at her regularly scheduled time. She ignacio balized understanding. TTelephone Encounter - Dori Romero RN - 06/03/2018 8:51 AM PDTPatient is calling to re port that she was told to call our office and schedule an appointment to see Dr. Pradip richter e she can come back to dialysis due to missing so many treatments. Her last dialysis treatme nt was on 05/10/18. Patient reports that her /boyfriend just , he has been on hospice in [facility] and she has been with him. She is now ready to come back to dialysis. Spoke with LISA River at [facility]. She reports that she has already talked with Dr. Moseley and has instructed patient to report to the ER. I notified patient that she needs to come to the ER to be evaluated and receive emergent di alysis, notified her that she is at high risk of dying due to missing so many dialysis treat ments. Patient was tearful, reports nobody cares if she lives or dies, I told her that I care and that is why I am trying to get her help. She reports that she will have to drive herself to [place] if she comes here. I notified her that she has the option to go to [facility] and then be transported if needed. She was concerned about having to take the ambulance. Ag ain, I notified her about her risk of if she does not seek care immediately. She repor ts that she will try to make it. Dr. Moseley notified. do cumented in this encounter Plan of Treatment Not on filedocumented as of this encounter Visit Diagnoses Not on filedocumented in this encounter"
--- OUTSIDE RECORDS SUMMARY | ~2020-03-23 | XMS | Encounter Summary ---
Demographics + + + | Address | [address] | | | [place] [address] | + + + | Home Phone [...] | Author | [facility] | | | and [place] | + + + | Organization | [facility] | | | and [place] | + + + | Address | Unknown | + + + | Phone | Unavailable | + + + Support + + + + + | Name | Relationship | Address | Phone | + + + + + | India Tilley | E[place] | [id number] | | | | | [place], [place] | | | | | [address] | | + + + + + [...] Team Providers + +------+ + | Care Congressional Aide Name | Role | Phone | + +------+ + PCP | Unavailable | + +------+ + Reason for Visit + +--------+ + | Reason | Onset | Comments | | | Date | | + +--------+ + | Nephrology | 09/22/ | | | Appointment | 2018 | | + +--------+ + Encounter Details +--------+ + + + + | Date | Type | Department | Care Team | Description | +--------+ + + + + | 09/22/ | Telephone | [facility] [place] | Darlin Moseley, | Nephrology | | 2018 | | NEPHROLOGY [address] | MD [address] | Appointment | | | | [address] | [address] [place] | | | | | [place], [place] | [place] [address] | | | | | [address] | [phone] | | | | | [phone] | | | +--------+ + + + [...] Notes Telephone Encounter - Daisha Yoon - 09/22/2017 3:26 PM Alyssa GONZALEZ from [facility] is calling to schedule an appointment for patient due to swelling in jasen th legs. Patient has not established with nephrology. On 05/30/17 patient was scheduled with Dr. Moseley but it was cancelled due to inability to contact patient. Most recent labs availa ble are from April 2017 and patient hasn't seen her PCP since June of 2017. [facility] draw labs and send over with current progress note. shivam in this encounter Plan of Treatment Not on filedocumented as of this encounter Visit Diagnoses Not on filedocumented in this encounter"
--- OUTSIDE RECORDS SUMMARY | ~2020-03-23 | XMS | Encounter Summary ---
Demographics + + + | Address | [address] | | | [place] [address] | + + + | Home Phone [...] + | Author | [facility] | | | and Kamaljitana | + + + | Organization | [facility] | | | and [place] | + + + | Address | Unknown | + + + | Phone | Unavailable | + + + Support + + + + + | Name | Relationship | Address | Phone | + + + + + | India Tilley | ECON | [address] | | | | | [place], [place] | | | | | [address] | | + + + + + [...] Team Providers + +------+ + | Care Rn Integrated Name | Role | Phone | + [...] | | | INTRA OP [address] [facility] | [phone] | | | | | [place] | | | | | | [phone] | | | | | | [phone] | | | +--------+---------+ + + + [...] completion of IV abx Follow Up Appointments: [facility] [address] [phone] [facility] [address] [place] [phone] [facility] [address] [facility] [phone] Discharge Disposition: Home with Home Health Consultants This Admission: ID, Nephrology Hospital Course: 73-year-old female with history of ESRD on hemodialysis, hypertension, type 2 diabetes, hyp othyroidism, chronic anemia, hyperlipidemia with a history of stroke transferred from [facility] for evaluation of T11-T12 lesion noted on [...] had planned to go to SNF ([facility] in [place], [place] - of which has accepted her [...] dialysis days after dialysis Osteomyelitis/Discitis of T11, [id number] -MRI spine 03/23/19: "mild paravertebral soft tissue [...] dialysis patient - has OP clinic in [place] already Macrocytic anemia likely secondary to-likely anemia [...] Value Units Date/Time Culture, Aerobic + Anaerobic [[id number]] Collected: 03/24/19 8513 Order Status: Completed Lab Status: Final result Updated: 03/29/19717 Specimen: Body Fluid from Vertebrae, Thoracic FINAL REPORT -- No Growth No anaerobes isolated Gram Stain Few Neutrophils No squamous epithelial cells seen No organisms seen Comment: Performed by [facility] [address] [place] [address] Gram Stain [[id number]] Collected: 03/24/19 151 Order Status: Canceled Lab Status: No result Updated: 03/24/19 151 Specimen: Body Fluid from Vertebrae, Thoracic Culture, AFB Smear [[id number]] Collected: 03/24/19 151 Order Status: Completed Lab Status: Preliminary result Updated: 03/25/19 1054 Specimen: Body Fluid from Vertebrae, Thoracic AFB Smear Result No Acid Fast Bacilli Seen Comment: Performed by [facility] [address] [place] [address] Culture, Fungus, Smear [[id number]] Collected: 03/24/19 151 Order Status: Completed Lab Status: Preliminary result Updated: 03/25/19 1039 Specimen: Body Fluid from Vertebrae, Thoracic CALCOFLUOR No fungal elements seen Comment: Performed by [facility] [address] [place] [address] Culture, Blood [[id number]] Collected: 03/23/19 2333 Order Status: Completed Lab Status: Final result Updated: 03/28/19 2352 Specimen: Blood Culture No growth after 5 days incubation. Culture, Blood [[id number]] Collected: 03/23/19 2255 Order Status: Completed Lab [...] than 30 minutes Electronically signed by: Michelle Lopze DO 03/31/2019 11:40 Portions of this chart may have been created with [employer] voice recognition software. Occasi onal wrong-word or [...] | | | | | | | ([facility]), Right hip | | | [...] 03/31/2019 5:42 PM PDTPatient left with family, [facility] supplies and i nstructions received before discharge and RX's filled at outpt pharmacy. VSS, ambulating wit h SBA, A&O x4, accepting of discharge. Dialysis completed this AM. Pain controlled with q4 o xy, LD 1400. Home health will f/u tomorrow. AVS reviewed and sent with patient, verbalized u nderstanding. Merry Hess MSW - 03/31/2019 11:05 AM PDTSOCIAL WORK PLAN: Home with [facility] NEXT STEPS: 1. Pt to follow up with [facility] 2. [facility] to follow up with pt at ia INTERVENTION: SW spoke with [facility], pt has a $2.50 out of pocket cost weekly, pt is agreeable to pay for this. Therefore pt will dc today with [facility]. ROBIN provided [facility] with hard script for IV abx. SW faxed over HH order to [facility], ROBIN faxed over IV vanco script to [facility]. [facility] notified of pt's dc home. notified. Candie to meet with pt later this afternoon for teach. SW provided pt with 3 gas cards to assist with transportation. No further dc needs identified. SW received call from [facility] clinic that they cannot provide IV Vanco as Vanco h as not been consigned by [facility] that has privileges in [place]. IV Vanco will now be done b y Candie, [address] [place] faxed over hard script to [facility]. They will have both IV Abx ready and will teach pt shortly. No further dc needs identified. CONTACTS: Yina La: sister India Tilley: sister [place] Transportation: [place] Medicaid Transportation fax: [phone] [facility]: [phone] fax: [phone] [facility] [phone] [facility]: [phone] [facility]: [phone] [facility] FAX: [phone] Michelle Cowan DO - 03/31/2019 10:12 AM PDT Patient: Estefani Tilley Date of : 1945 Admit Date: 03/24/2019 Date of Service: 03/31/2019 PCP: Francisca Womack PA-C Hospital Day: Hospital Day: 8 Hospital Course: 73-year-old female with history of ESRD on hemodialysis, hypertension, type 2 diabetes, hyp othyroidism, chronic anemia, hyperlipidemia with a history of stroke transferred from [facility] for evaluation of T11-T12 lesion noted on [...] to go to SNF ([facility] in [place] - of which has accepted her [...] dialysis patient - has OP clinic in [place] already Macrocytic anemia likely secondary to-likely anemia [...] hoping to arrange home IV antibiotics through [facility]. Awaiting to see if insurance will cover [...] - 99 mg/dL Final Comment: Performed by [facility] [address] [place] [address] 03/30/2019 21:14 200 (H) 65 - 99 mg/dL Final Comment: Performed by [facility] [address] [place] [address] 03/30/2019 17:46 111 (H) 65 - 99 mg/dL Final Comment: Performed by [facility] [address] [place] [address] 12/09/2018 18:05 113 (H) 70 - 109 [...] this chart may have been created with [employer] voice recognition software. Occasi onal wrong-word or sound-alike substitutions may have occurred due to the inherent mckeon itations of voice recognition software. Please read the chart carefully and recognize, using context, where these substitutions have occurred Jesus Wade MD - 03/31/2019 8:26 AM PDT . Infectious Diseases Progress Note Pt. Name/Age/: Estefanicharlie Tilley 73 y.o. 1945 Med. Record Number: [id number] Date of admission: 03/24/2019 Patient admitted with [...] Electronically signed by: Jesus Whitney, 03/31/2019 8:26 [facility] Robb Phillips PharmD - 03/31/2019 7:25 [...] Nunez MD - 03/30/2019 9:45 PM PDT [facility] INPATIENT ROUNDING NOTE Date of Service: 03/30/2019 Rounding Physician: Randy Corrigan MD Patient Name: Estefani Tilley : 1945 Medical Record: [id number] Hospital Summary: Estefani Tilley is a 73 y.o. female with a PMHx of ESRD, HTN, Dm type 2, hypothyroidism, HLd, CVA who is under the care of Dr Muñoz at [facility] who dialyzes MWF admitted with [...] Trace Corrigan MD, 03/30/2019, 21:45 etNan wilkes, GAS LINE INSTALLER - 03/30/2019 2:34 PM PDT SOCIAL WORK D/C PLAN:[place] home with [facility] providing IV-ABX and [facility] providing picc care and lab draws vs [facility] NEXT STEPS: -SW will need to follow up with CADN[facility] regarding providing IV-ABX to pt. -SW will need to follow up with [facility] regarding providing picc care and lab draws. -SW will need to follow up with [facility] regarding having pt receive vanco do [...] INTERVENTION:SW spoke with pt regarding acceptance to [facility]. Pt is now wanting to go home with IV-ABX. SW spoke with [facility]. They go out to [place], [place] and have openings for nursing care. Referral faxed to [facility]. Pt is amenable to using [facility] for IV-ABX. SW spoke with CANDIE martinez who will run pt's be nefits to see if she can DC home with IV-ABX. Pt states that CANDIE can provide teach to her son to help administer IV-ABX. SW left message for [facility] to see if they can provide vanco dose to pt at [facility] on Wednesday, Wednesday and Wednesday if pt is able to go home. Pt states that she does dialysis on Wednesday, Wednesday and Wednesday from 12:00-4:00. SW received phone call from [facility]. They have accepted pt for admission if [...] anemia,hyperlipidemia, hx of stroke [facility] noted on MRI concerning fo r osteomyelitis. ROBIN met with pt's sister, Yina, and her cousin, Keri, who were waiting in pt's room while s he was in dialysis. SW will need to follow up with pt re: d/c planning. Pt's sister and cousin related that pt mostly lives at Yina's house outside [place], [place], but does not like to be tied down because she enjoys attending [place] festivals and many events. She does at [facility] dialysis weekly. Pt has a vehicle and is very independent. D/C TRANSPORT:Pt can be transported home or to [facility] via family in a private car. They will need gas cards to help pay for transportation. BARRIERS TO D/C:none CONTACTS: Yina La: sister India Tilley: sister [place] Transportation: [place] Medicaid Transportation fax: [phone] [facility]: [phone] fax: [phone] [facility] [phone] [facility]: [phone] [facility]: [phone] [facility] FAX: [phone] Nan Cheney MSW - 03/30/2019 12:57 PM PDTSOCIAL WORK D/C PLAN:SNF: [facility] NEXT STEPS:Await bed availability INTERVENTION: ROBIN called [...] [facility] dialys is in [place], [place] on Wed, Wed, and Fridays from 12:00-4:00 pm. SW left message with [facility] regarding if there was any way that they may also be able to help with transportation to and from dialysis while pt is in rehab and to ensure that pt still has her chair time scheduled. [facility] is only open M on, Wednesday and Wednesday. ASSESSMENT/CHART REVIEW:73 yr old femalewith a history of ESRD on hemodialysis, hypertens ion, type 2 diabetes, hypothyroidism,chronic anemia,hyperlipidemia, hx of stroke [facility]12 lesion noted on MRI concerning fo r osteomyelitis. ROBIN met with pt's sister, Yina, and her cousin, Keri, who were waiting in pt's room while s he was in dialysis. SW will need to follow up with pt re: d/c planning. Pt's sister and cousin related that pt mostly lives at Yina's house outside [place], [place], but does not like to be tied down because she enjoys attending [place] festivals and many events. She does at [facility] weekly. Pt has a vehicle and is very independent. D/C TRANSPORT:tbd BARRIERS TO D/C:none CONTACTS: Yina La: sister India Tilley: sister [place] Transportation[place] Transportation fax: [phone] [facility]: [phone] fax: [phone] [facility] [phone] [facility]: [phone] signed by JENNIFER Xavier at 03/30 1:09 [...] with a history of stroke transferred from [facility] for evaluation of T11-T12 lesion noted on [...] awaiting to hear from [facility], in [place] regarding possible acceptance. She is improved [...] dialysis patient - has OP clinic in [place] already ---> will need SW to help [...] SNF - awaiting to hear back from [facility], in [place], [place] regarding possible acceptance there. Medically ready [...] Single Lumen 03/24/19 2143 Left Lateral Forearm oqru-mgb-lwmxfo daniel ter system 20 gauge;1 1/4 in [...] - 99 mg/dL Final Comment: Performed by [facility] [address] [place] [address] 03/29/2019 21:09 157 (H) 65 - 99 mg/dL Final Comment: Performed by [facility] [address] [place] [address] 03/29/2019 18:50 91 65 - 99 mg/dL Final Comment: Performed by [facility] [address] [place] [address] 12/09/2018 18:05 113 (H) 70 - 109 [...] this chart may have been created with [employer] voice recognition software. Occasi onal wrong-word or sound-alike substitutions may have occurred due to the inherent mckeon itations of voice recognition software. Please read the chart carefully and recognize, using context, where these substitutions have occurred rgJesus mcdonald MD - 03/30/2019 7:15 AM PDT . Infectious Diseases Progress Note Pt. Name/Age/: Estefani Tilley 73 y.o. 1945 Med. Record Number: [id number] Date of admission: 03/24/2019 Patient admitted with [...] Electronically signed by: Jesus Whitney, 03/30/2019 7:15 [facility] Mary Wade RN - 03/30/2019 6:16 [...] wishful of Monitoring Requirements P[facility] Suicide Policy [facility] Suicide Risk/Telesitter Screening Utilizing this rating [...] 03/29/2019 4:18 PM PDTSOCIAL WORK D/C PLAN:SNF: [facility] NEXT STEPS:Await bed availability INTERVENTION: SW called [...] anemia,hyperlipidemia, hx of stroke [facility]12 lesion noted on MRI concerning fo r osteomyelitis. SW met with pt's sister, Yina, and her cousin, Keri, who were waiting in pt's room while s he was in dialysis. SW will need to follow up with pt re: d/c planning. Pt's sister and cousin related that pt mostly lives at Yina's house outside [place], [place], but does not like to be tied down because she enjoys attending [place] festivals and many events. She does at [facility] weekly. Pt has a vehicle and is very independent. D/C TRANSPORT:tbd BARRIERS TO D/C:none CONTACTS: Yina La: sister India Tilley: sister [place] Medicaid Transportation: [facility]: [phone] fax: [phone] [facility] [phone] signed by JENNIFER Contreras at 03/29/2019 4:20 PM PDTu, Randy Nunez MD - 03/29/2019 12:32 PM PDT [facility] INPATIENT ROUNDING NOTE Date of Service: 03/29/2019 Rounding Physician: Randy Corrigan MD Patient Name: Estefani Tilley : 1945 Medical Record: [id number] Hospital Summary: Estefani Tilley is a 73 y.o. female with a PMHx of ESRD, HTN, Dm type 2, hypothyroidism, HLd, CVA who is under the care of Dr Muñoz at [facility] who dialyzes MWF admitted with [...] with a history of stroke transferred from [facility] for evaluation of T11-T12 lesion noted on [...] awaiting to hear from [facility], in [place] regarding possible acceptance. May be able [...] dialysis patient - has OP clinic in [place] already ---> will need SW to help [...] SNF - awaiting to hear back from [facility], in [place], [place] regarding possible acceptance there. Could possibly [...] Single Lumen 03/24/19 2143 Left Lateral Forearm muzp-rri-xnhaqt daniel ter system 20 gauge;1 09/16 in [...] - 99 mg/dL Final Comment: Performed by [facility] [address] [place] [address] 03/28/2019 21:06 144 (H) 65 - 99 mg/dL Final Comment: Performed by [facility] [address] [place] [address] 03/28/2019 11:22 119 (H) 65 - 99 mg/dL Final Comment: Performed by [facility] [address] [place] [address] 12/09/2018 18:05 113 (H) 70 - 109 [...] this chart may have been created with [employer] voice recognition software. Occasi onal wrong-word or [...] Tilley 73 y.o. 1945 Med. Record Number: [id number] Date of admission: 03/24/2019 Patient admitted with [...] Electronically signed by: Jesus Whitney, 03/29/2019 7:35 [facility] zech, Carolina Kearney RN - 03/28/2019 7:08 PM [id number] - Report called to Sanjuanita GONZALEZ. Pt's belongings . I pad and I phone w/ chargers as well as pt's purse, and shoes, and shirt and pants all sent with her to [address] [place] [address]. Pt had been sitting up eating dinner. [...] signed by: Carolina Jessica RN 03/28/2019 19:23 RadhaftMichelle avila D O [...] Single Lumen 03/24/19 2143 Left Lateral Forearm pnry-ggu-nvnbea daniel ter system 20 gauge;1 1/4 in [...] - 99 mg/dL Final Comment: Performed by [facility] [address] [facility] [place] [address] 03/28/2019 07:09 75 65 - 99 mg/dL Final Comment: Performed by [facility] [address] [facility] [place] [address] 03/27/2019 20:38 109 (H) 65 - 99 mg/dL Final Comment: Performed by [facility] [address] [facility] [place] [address] 12/09/2018 18:05 113 (H) 70 - 109 [...] this chart may have been created with [employer] voice recognition software. Occasi onal wrong-word or sound-alike substitutions may have occurred due to the inherent mckeon itations of voice recognition software. Please read the chart carefully and recognize, using context, where these substitutions have occurred Cordell Mcgarry LICSW - 03/28/2019 2:57 PM PDTSOCIAL WORK D/C PLAN: SNF: [facility] NEXT STEPS: Await bed availability INTERVENTION: On-going dc planning. Rec'd update from [facility]. They confirm they have r ec'd clinical notes and are currently reviewing. SW will follow. ASSESSMENT/CHART REVIEW:73 yr old femalewith a history of ESRD on hemodialysis, hypertens ion, type 2 diabetes, hypothyroidism,chronic anemia,hyperlipidemia, hx of stroke [facility] noted on MRI concerning fo r osteomyelitis. SW met with pt's sister, Yina, and her cousin, Keri, who were waiting in pt's room while s he was in dialysis. SW will need to follow up with pt re: d/c planning. Pt's sister and co usin related that pt mostly lives at Yina's house outside [place], [place], but does not like to be tied down because she enjoys attending [place] festivals and many events. She does atten d dialysis weekly. Pt has a vehicle and is very independent. D/C TRANSPORT: tbd BARRIERS TO D/C: none CONTACTS: Yina La: sister India Tilley: sister [facility]: [phone] fax: [phone] [facility] [phone] Mario Alberto Gonzales MD - 03/28/2019 7:34 AM PDTFormatting of this note might be different from the maynor rollins Infectious Diseases Progress Note Pt. Name/Age/: Estefani Tilley 73 y.o. 1945 Med. Record Number: [id number] Date of admission: 03/24/2019 Patient admitted with [...] Electronically signed by: Carlos Jansen, 03/28/2019 7:34 [facility] Katey Solis MD - 03/27/2019 8:58 PM PDT Patient: Estefani Tilley Date of : 1945 Admit Date: 03/24/2019 Date of Service: 03/27/2019 PCP: Francisca Womack PA-C Hospital Day: Hospital Day: 4 Hospital Course: 73-year-old female with history of ESRD on hemodialysis, hypertension, type 2 diabetes, hyp othyroidism, chronic anemia, hyperlipidemia with a history of stroke transferred from [facility] for evaluation of T11-T12 lesion noted on MRI concerning for osteomyeliti s. Infectious disease consulted. Status post aspiration from her thoracic spine, Gram stain negative, cultures pending. Rosemary ent started on empiric vancomycin and cefepime. Will need 6 weeks of IV antibiotics. Discussed with nephrology, recommend placement of Tillman catheter instead of PICC line for extermination supervisor IV antibiotics. Nephrology following for maintenance hemodialysis. SW following for SNF. Assessment and Plan: Assessment of active problems addressed today: Osteomyelitis/discitis of T11, T12 vertebra Afebrile, improved WBC count, improved CRP Status post aspiration from her thoracic spine, Gram stain negative, cultures pending- [facility] Infectious disease help appreciated Continue vancomycin and cefepime Echocardiogram negative for any endocarditis. Patient will need IV antibiotics for 6 weeks. Continue probiotic Discussed with nephrology, recommend placement of Tillman catheter instead of PICC line for extermination supervisor IV antibiotics. Pain management -trial of lidocaine [...] - Single Lumen 03/24/193 Left Lateral Forearm mvsa-vwv-kitxux daniel ter system 20 gauge;1 / in [...] - 99 mg/dL Final Comment: Performed by [facility] [address] [place] [address] 03/27/2019 13:58 82 65 - 99 mg/dL Final Comment: Performed by [facility] [address] [place] [address] 03/27/2019 06:39 83 65 - 99 mg/dL Final Comment: Performed by [facility] [address] [place] [address] 12/09/2018 18:05 113 (H) 70 - 109 [...] this chart may have been created with [employer] voice recognition software. Occasi onal wrong-word or sound-alike substitutions may have occurred due to the inherent mckeon itations of voice recognition software. Please read the chart carefully and recognize, using context, where these substitutions have occurred arlin Diaz, [facility] - 03/27/2019 3:17 PM PDTSOCIAL WORK D/C PLAN: SNF: [facility] NEXT STEPS: Await bed availability INTERVENTION: Rec'd call from Emiil at [facility]. She states the contracted f acility near pt's home is [facility]. Spoke with pt and with sister India. Referral and (-) Pasrr sent to [facility]. Copy of Pasrr placed in light chart with request to file into jos rds. SW will follow. ASSESSMENT/CHART REVIEW:73 yr old femalewith a history of ESRD on hemodialysis, hypertens ion, type 2 diabetes, hypothyroidism,chronic anemia,hyperlipidemia, hx of stroke [facility]12 lesion noted on MRI concerning fo r osteomyelitis. SW met with pt's sister, Yina, and her cousin, Keri, who were waiting in pt's room while s he was in dialysis. SW will need to follow up with pt re: d/c planning. Pt's sister and co in related that pt mostly lives at Yina's house outside [place], [place], but does not like to be tied down because she enjoys attending [place] festivals and many events. She does atten d dialysis weekly. Pt has a vehicle and is very independent. D/C TRANSPORT: tbd BARRIERS TO D/C: none CONTACTS: Yina La: sister India Tilley: sister [facility]: [phone] fax: [phone] [facility] [phone] Gregg Mcgarry LICSW - 03/27/2019 2:17 PM [...] pt mostly lives at Yina's house outside [place], [place], but does not like to be tied down because she enjoys attending [place] festivals and many events. She does atten d dialysis weekly. Pt has a vehicle and is very independent. ASSESSMENT/CHART REVIEW:73 yr old femalewith a history of ESRD on hemodialysis, hypertens ion, type 2 diabetes, hypothyroidism,chronic anemia,hyperlipidemia, hx of stroke [facility] lesion noted on MRI concerning fo r osteomyelitis. D/C TRANSPORT: tbd BARRIERS TO D/C: none CONTACTS: Yina La Sister [phone] India Tilley Sister [phone] Irish Cadet, Risk Modeler - 03/27/2019 1:33 PM PDTFormatting of this [...] Vancomycin Protocol Electronically signed by: Aimee Carroll, Risk Modeler 03/27/2019 13:33Electronically si gned by Ray Joel PharmD at 03/27/2019 2:04 PM PDT Associated attestation - Ray Joel PharmD - 03/27/2019 2:04 PM PDTI reviewed and agr ee with the assessment and plan. Ray Joel, PharmD 03/27/2019 14:04 Randy Corrigan MD - 03/27/2019 10:52 AM PDT [facility] INPATIENT ROUNDING NOTE Date of Service: 03/27/2019 Rounding Physician: Randy Corrigan MD Patient Name: Estefani Jimenez Jarek : 1945 Medical Record: [id number] Hospital Summary: Estefani Tilley is a 73 y.o. female with a PMHx of ESRD, HTN, Dm type 2, hypothyroidism, HLd, CVA who is under the care of Dr Muñoz at [facility] who dialyzes MWF admitted with [...] Tilley 73 y.o. 1945 Med. Record Number: [id number] Date of admission: 03/24/2019 Patient admitted with [...] Electronically signed by: Carlos Jansen, 03/27/2019 7:10 [facility] Katey Solis MD - 03/26/2019 5:40 PM PDT Patient: Estefani Tilley Date of : 1945 Admit Date: 03/24/2019 Date of Service: 03/26/2019 PCP: Francisca Womack PA-C Hospital Day: Hospital Day: 3 Hospital Course: 73-year-old female with history of ESRD on hemodialysis, hypertension, type 2 diabetes, hyp othyroidism, chronic anemia, hyperlipidemia with a history of stroke transferred from [facility] [place] for evaluation of T11-T12 lesion noted on [...] Single Lumen 03/24/19 2143 Left Lateral Forearm ejrn-zwm-paohsa daniel ter system 20 gauge;1 1/4 in [...] - 99 mg/dL Final Comment: Performed by [place] [address] [address] [facility] [place] [address] 03/26/2019 06:49 116 (H) 65 - 99 mg/dL Final Comment: Performed by [address] [facility] [place] [address] 03/25/2019 20:37 110 (H) 65 - 99 mg/dL Final Comment: Performed by [place] [address] [address] [facility] [place] [address] 12/09/2018 18:05 113 (H) 70 - 109 [...] this chart may have been created with [employer] voice recognition software. Occasi onal wrong-word or [...] Vancomycin Protocol Electronically signed by: Jose Ramos, Risk Modeler 03/26/2019 10:52 Randy Yu MD - 03/26/2019 1 0:38 AM PDT [facility] INPATIENT ROUNDING NOTE Date of Service: 03/26/2019 Rounding Physician: Randy Corrigan MD Patient Name: Estefani Tilley : 1945 Medical Record: [id number] Hospital Summary: Estefani Tilley is a 73 y.o. female with a PMHx of ESRD, HTN, Dm type 2, hypothyroidism, HLd, CVA who is under the care of Dr Muñoz at [facility] who dialyzes MWF admitted with possible osteo disccitis t11/t12 ASSESSMENT AND PLAN 1. ESRD/HD dependent Access is LUE AVF working well No indications for HD today Usually dialyzes MWF at [facility] Hd tommorow 2. Anemia Hg [...] Tilley 73 y.o. 1945 Med. Record Number: [id number] Date of admission: 03/24/2019 Patient admitted with [...] Electronically signed by: Carlos Jansen, 03/26/2019 8:03 [facility] Katey Solis MD - 03/25/2019 3:50 PM PDT Patient: Estefani Tilley Date of : 1945 Admit Date: 03/24/2019 Date of Service: 03/25/2019 PCP: Francisca Womack PA-C Hospital Day: Hospital Day: 2 Hospital Course: 73-year-old female with history of ESRD on hemodialysis, hypertension, type 2 diabetes, hyp othyroidism, chronic anemia, hyperlipidemia with a history of stroke transferred from [facility] [place] for evaluation of T11-T12 lesion noted on [...] Single Lumen 03/24/19 2143 Left Lateral Forearm tbha-jab-yupsuy daniel ter system 20 gauge;1 1/4 in [...] - 99 mg/dL Final Comment: Performed by [place] [address] [place] [address] 03/25/2019 06:52 107 (H) 65 - 99 mg/dL Final Comment: Performed by [facility] [address] [place] [address] 03/24/2019 20:11 112 (H) 65 - 99 mg/dL Final Comment: Performed by [facility] [address] [place] [address] 12/09/2018 18:05 113 (H) 70 - 109 [...] this chart may have been created with [employer] voice recognition software. Occasi onal wrong-word or sound-alike substitutions may have occurred due to the inherent mckeon itations of voice recognition software. Please read the chart carefully and recognize, using context, where these substitutions have occurred su, Randy Nunez MD - 0 03/25/2019 1:47 PM PDT [facility] INPATIENT ROUNDING NOTE Date of Service: 03/25/2019 Rounding Physician: Randy Corrigan MD Patient Name: Estefani Tilley : 1945 Medical Record: [id number] Hospital Summary: Estefani Tilley is a 73 y.o. female with a PMHx of ESRD, HTN, Dm type 2, hypothyroidism, HLd, CVA who is under the care of Dr Muñoz at [facility] who dialyzes MWF admitted with possible osteo disccitis t11/t12 ASSESSMENT AND PLAN 1. ESRD/HD dependent Access is LUE AVF working well No indications for HD today Usually dialyzes MWF at [facility] She is below her EDW [...] Corrigan MD, 03/25/2019, 13:47 ettler, Nan Jimenez, GAS LINE INSTALLER - 03/25/2019 10:49 AM PDT SOCIAL [...] pt mostly lives at Yina's house outside [facility], [place], but does not like to be tied down because she enjoys attending [place] festivals and many events. She does atten d dialysis weekly. Pt has a vehicle and is very independent. ASSESSMENT/CHART REVIEW:73 yr old femalewith a history of ESRD on hemodialysis, hypertens ion, type 2 diabetes, hypothyroidism,chronic anemia,hyperlipidemia, hx of stroke [facility] [place] noted on MRI concerning fo r osteomyelitis. D/C TRANSPORT: tbd BARRIERS TO D/C: none CONTACTS: Yina La Sister [phone] India Tilley Sister [phone] Carlos Gonzales M D - 03/25/2019 8:34 AM PDT Infectious Diseases Progress Note Pt. Name/Age/: Estefani Tilley 73 y.o. 1945 Med. Record Number: [id number] Date of admission: 03/24/2019 Patient admitted with [...] Electronically signed by: Carlos Jansen, 03/25/2019 8:34 [facility] Jose Gamez, Risk Modeler - 03/24/2019 10:46 PM PDTFormatting of this [...] Vancomycin Protocol Electronically signed by: Jose Ramos, Risk Modeler 03/24/2019 22:46 Gladys Daugherty MSW - 9 [...] pt mostly lives at Yina's house outside [place], [place], but do es not like to be tied down because she enjoys attending [place] festivals and many events. She does attend dialysis weekly. Pt has a vehicle and is very independent. ASSESSMENT/CHART REVIEW:73 yr old female with a history of ESRD on hemodialysis, hypertensi on, type 2 diabetes, hypothyroidism, chronic anemia, hyperlipidemia, hx of stroke transferre d from [facility] for evaluation of T11-T12 lesion noted on MRI concerning for ost eomyelitis. D/C TRANSPORT: tbd BARRIERS TO D/C: none CONTACTS: Yina La Sister [phone] India Tilley Sister [phone] Katey Solis MD - 03/24/2019 3:53 PM PDTPatient seen and examined. Chart reviewed. Briefly, 73-year-old female with history of ESRD on hemodialysis, hypertension, type 2 diab etes, hypothyroidism, chronic anemia, hyperlipidemia with a history of stroke transferred fr [facility] for evaluation of T11-T12 [...] not have any p raza, consider antidepressants. sand control worker consulted for concerns for housing concerns [...] 1250 mg IV once given 03/23 @ 0762 at [facility]. 2. Target Trough: 15-20 mcg/ml 3. [...] Procedure Component Value Units Date/Time Culture, Blood [[id number]] Collected: 03/23/19 2333 Order Status: Sent Lab Status: In process Updated: 03/23/192348 Specimen: Blood Culture, Blood [[id number]] Collected: 03/23/19 5420 Order Status: Sent Lab Status: In process Updated: 03/23/19 8469 Specimen: Blood Per P&T-approved Vancomycin Protocol Electronically [...] anemia, hyperlipidemia, hx of stroke transferred from [facility] for evaluation of T11-T12 lesion noted on [...] M, w and F HD sessions in [place] Last HD session Wednesday Will call [...] stroke on aspirin , pt lives in [place], [place]. She presented to [facility] yesterday complaining of 6 days of [...] the spine for further evaluation. Answered to [place] for IR procedure. Patient reports that she [...] W/CANNULATED SCREWS; Surgeon: Scott Koroma MD; Location: [facility] MAIN OR HYSTERECTOMY MASTECTOMY 2006 left [...] Artery; Surgeon: Santos Stephenson MD, FACS; Location: [facility] MAIN OR Social History Socioeconomic History [...] on file COMMENTS- Never smoker, lives in [place], [place]. Reports living in her car most [...] or hilar lymphadenopathy. LUNGS:There is a smal y-wp-kaadxiet layering left pleural effusion. There is atelectasis [...] this chart may have been created with [employer] voice recognition software. Occasi onal wrong-word or [...] Corrigan MD - 03/24/2019 9:31 AM PDT [facility] Nephrology Consultation Patient Name: Estefani Tilley : 1945 Medical Record: [id number] DATE OF SERVICE: 03/24/2019 CONSULTING PHYSICIAN: Trace Nunez MD REFERRING PHYSICIAN: Dr Erlinda Simental REASON FOR CONSULTATION: ESRD HD management HISTORY OF PRESENT ILLNESS Estefani Tilley is a 73 y.o. female who has a history of ESRD, HTN, Dm type 2, hypothyroi dism, HLd, CVA who is under the care of Dr Muñoz at [facility] who dialyzes MWF. Her usually [...] Date Anemia Arthritis Back pain Breast cancer ([facility]) s/p left mastectomy in 2004, s/p chemotherapy Cancer ([facility]) Diabetes ([facility]) Heart disease Hemodialysis patient ([facility]) wed-wed-wed History of blood clots Hypercholesteremia Hypertension Hypothyroidism Renal failure Seasonal allergies Stroke (cerebrum) ([facility]) CURRENT MEDICATIONS Scheduled Meds: aspirin [...] effort i s made to edit content, tie carrier errors may occur. If there are any [...] her local facility and then transferred to [facility] in [place] . CT scan was suggestive of T11-T12 [...] (HCC) Diabetes (HCC) Heart disease Hemodialysis patient ([facility]) mon-wed-fri History of blood clots Hypercholesteremia Hypertension Hypothyroidism Renal failure Seasonal allergies Stroke (cerebrum) ([facility]) Past Surgical History: Procedure Laterality Date APPENDECTOMY EYE SURGERY 2009 HIP SURGERY Right 12/04/2018 Procedure: ORIF HIP W/CANNULATED SCREWS; Surgeon: Scott Koroma MD; Location: [facility] MAIN OR HYSTERECTOMY MASTECTOMY 2006 left ear NOSE SURGERY 2009 REMOVAL TUNNELED CATHETER Right 04/04/[address] Stephenson SHUNT PLACEMENT/INSERTION N/A 11/08/2017 Procedure: Tunneled Hemodialysis Catheter Placement; Surgeon: Nora Leo MD; Location : [facility] MAIN OR SHUNT PLACEMENT/INSERTION Right 02/04/2018 Procedure: INSERTION SHUNT HEMODIALYSIS W/ PERMACATH; Surgeon: Heather Navarro MD; L ocation: [facility] MAIN OR VEIN SURGERY Right 01/04/2018 Procedure: Right Transposed Basilic Vein to Proximal Radial Artery; Surgeon: Santos Stephenson MD, FACS; Location: [facility] MAIN OR Patient Active Problem [...] or hilar lymphadenopathy. LUNGS:There is a smal e-kr-fgcvrxmp layering left pleural effusion. There is atelectasis [...] (140 lb 3.4 oz) Energy Calorie Requirements: 3122-2390(REE x 1.2-1.4) Range Gm Protein (gm): 55-85 [...] nd stooling patterns Tiffany Herrera MS, RD [phone] DATE/TIME: 03/31/2019 16:12 lan of Genevieve Gama RN - 03/31/2019 2:57 PM PDTShift Summary: Pt off the floor most of the day for HD. REY fistula, R IJ CVC, flushing w/o difficulty. A& O, up with 1 assist. Pt to d/c home to [place] this afternoon after Radionomy teach es family about IV abx administration. Receives oxycodone 5-10mg for chronic back pain. Campbell lomas N/V/D. VSS. ACHS CS WNL. lan of Calli Delgado, [place] Sewing Machine Operator-Clinical - 03/31/2019 1:36 PM PDTFormattin g of this note might be different from the original. [facility] MENU ASSISTANCE FOLLOW-UP NOTE INTERVENTIONS: 1. Continue [...] as needed. Electronically signed by: Lorna Lima Fifty100Clinical 03/31/2019 13:37 NF Transfer - [facility] Michelle avila DO - 03/31/2019 10:26 AM PDT LONGTERM FACILITY TRANSFER ORDERS Patient Name: Estefani Tilley Patient : 1945 Gender: female Date of Admission: 03/24/2019 Date of Discharge: 03/31/2019 Admitting Provider: Erlinda Simon MD Discharging Provider: Michelle Lopez DO Consultants: Nephrology, ID PCP: [facility] transferring to: [place] Provider after transfer: Facility Provider CODE STATUS: [x] Attempt CPR [] Do not resuscitate If patient is pulseless and not breathing, RN/SCRAP DROP OPERATOR may pronounce . Advanced Directives included: [] [...] INFLUENZA QUADR W/PRES (PED/ADOL/ADULT) MULTIDOSE 06/27/2014 INFLUENZA, [id number], UNSPECIFIED 08/28/2009 INFLUENZA, UNSPECIFIED FORMULATION 06/20/2013 PNEUMOCOCCAL CONJUGATE 13-VALENT (PCV13) 02/12/2016 PNEUMOCOCCAL POLYSACCHARIDE 23-VALENT (PPSV23) 07/30/2011 TD PF (2 LF TETANUS) (ADOL/ADULT) 06/22/2002 TDAP, (ADOL/ADULT) 06/17/2010, 06/17/2010 ZOSTER, 1 DOSE (ZOSTAVAX) 01/28/2012 Diet: [] As tolerated DEPUTY CORONER may upgrade or downgrade diet as condition Indicates. [] RN may downgrade diet as indicated. Type: [x] Continue current diet of: Diet and Supplements Diet Diet general; Effective Now Number of Occurrences: Until Specified Order Questions: Type Diet general [] Other: Consistency/Precautions: [] Whole [] Thin Liquids [] Cut-up [] Campo Thick [] Advanced Chopped [] Honey Thickened [] Chopped [] Advanced Ground [] 1:1 feedings [] Ground/Pureed [] Other: Tube Feedings: [] PEG [] GT [] JT [] NGT [] Formula type: (Top Ironer may change/substitute if indicated). [] Continuous Rate: [...] [] OT Evaluation & Management for: [] DEPUTY CORONER Evaluation &Management for: [] Other: Wound/Skin Care: [...] Sepsis of Unknown Etiology Start: 04/01/2019 By: Mcihelle Lopez DO Quant: 33 each gabapentin 100 [...] Michelle ESCALANTE, DO, certify that post hospital custodial care is medically neces shar on a continuing basis for any of the conditions for which he/she received care during t his hospitalization. Check one: [x] Skilled [] Intermediate Additional Orders/Instructions: Physician's signature: 03/31/2019 10:26 [facility] NURSING FACILITY USE ONLY: [] Admitting [...] has depression wishful of Monitoring Requirements [facility] Suicide Policy [facility] Suicide Risk/Telesitter Screening Utilizing this rating [...] tomorrow, tunneled cath General diet AO IND [id number] signed by Rayna Ochoa RN at 03/30/2019 [...] has depression wishful of Monitoring Requirements [facility] Suicide Policy [facility] Suicide Risk/Telesitter Screening Utilizing this rating [...] of meals x 6 days. Will send [facility] Renal [facility] h meals. Nutrition History Obtained? No [...] (based on estimated dry wt: 65.50 kg) [place] Body Weight: 63.64 kg Usual Body Weight: See [facility] weight hx; Weight History Per [facility] Records: 11/01/17: 87.20 k 04/04/18: [...] nd stooling patterns Tiffany Herrera MS, RD [phone] DATE/TIME: 03/30/2019 10:22 lan of Care - [...] has depression wishful of Monitoring Requirements [facility] Suicide Policy [facility] Suicide Risk/Telesitter Screening Utilizing this rating [...] m ight be different from the original. Controls Project Engineer Clinical Nutrition Follow-up Note Nutrition Interventions: [...] Isolation:None Code Status: Full Code Item for gullet slitter Comments Shift Summary: Hx Breast CA, ESRD, [...] Height: No data found. lan of [facility] - Luz Farris, Flatlock Sewing Machine Operator-Clinical - 03/28/2019 4:44 PM PDT [facility] CLINICAL NUTRITION NOTE NUTRITION PROBLEMS: 1. Inadequate [...] MD - 03/28/2019 3:05 PM PDT [facility] OPERATIVE NOTE [facility] Pt. Name/Age/: Estefani Tilley 73 y.o. 1945 Med. Record Number: [id number] Date of admission: 03/24/2019 Date of Operation/Procedure: 03/28/2019 Preoperative Diagnosis: need for iv access Postoperative Diagnosis: Same Surgeon: Juan Choi MD, PGY-4 Building Maintenance Custodian: None Anesthesia Provider(s): No anesthesia staff entered. [...] 03/28/2019, 15:05 edation Documentation - Sudhir Brandon Ethologist - 03/28/2019 2:58 PM PDTTunnelled Power Line [...] Room # 836/836-01 ISO: None Item for gullet slitter Comments Shift Summary: Include Pain RX BP [...] or Bedside Sitter Discharge plan Patient/Family Goals [place]. C-SSRS Since you were last asked, have [...] has depression wishful of Monitoring Requirements [facility] Suicide Policy [facility] Suicide Risk/Telesitter Screening Utilizing this rating [...] Room # 836/836-01 ISO: None Item for gullet slitter Comments Shift Summary: Include Pain RX BP within ordered parameters? Stroke pt?:Depression screen Day 2 Took over patient care from 2836-7967. BP peaked and PRN was administered with [...] has depression wishful of Monitoring Requirements [facility] Suicide Policy [facility] Suicide Risk/Telesitter Screening Utilizing this rating [...] Nursing Progress Note Patient Name: Estefani Jimenez Roca Room # 836/836-01 ISO: None Item for gullet slitter Comments Shift Summary: Include Pain RX BP within ordered parameters? Stroke pt?:Depression screen Day 2 Patient here for possible osteomyelitis of T11-T12. A/O X4. Cooperative with care today. Had dialysis from 2714-9428. AM medications held and given when pt [...] has depression wishful of Monitoring Requirements [facility] Suicide Policy [facility] Suicide Risk/Telesitter Screening Utilizing this rating [...] Room # 836/836-01 ISO: None Item for gullet slitter Comments Shift Summary: Include Pain RX BP [...] has depression wishful of Monitoring Requirements [facility] Suicide Policy [facility] Suicide Risk/Telesitter Screening Utilizing this rating [...] 6:41 PM PDTAssumed care of pt from 3738-0691. Pt here wi th thoracic discitis, possible [...] Nursing Progress Note Patient Name: Estefani Jimenez Roca Room # 836/836-01 ISO: None Item for gullet slitter Comments Shift Summary: Include Pain RX BP within ordered parameters? Stroke pt?:Depression screen Day 2 Assumed care from 5285-6327. 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 [...] has depression wishful of Monitoring Requirements [facility] Suicide Policy [facility] Suicide Risk/Telesitter Screening Utilizing this rating [...] Nursing Progress Note Patient Name: Estefani Jimenez Roca Room # 836/836-01 ISO: None Item for gullet slitter Comments Shift Summary: Include Pain RX BP [...] to do assessment. Refused labs from the labor relations worker until this nurse came and educated [...] wishful of Monitoring Requirements [facility] Suicide Policy [facility] Suicide Risk/Telesitter Screening Utilizing this rating [...] Room # 836/836-01 ISO: None Item for gullet slitter Comments Shift Summary: Include Pain RX BP [...] has depression wishful of Monitoring Requirements [facility] Suicide Policy [facility] Suicide Risk/Telesitter Screening Utilizing this rating [...] Room # 836/836-01 ISO: None Item for gullet slitter Comments Shift Summary: Include Pain RX BP [...] wishes she was n't alive. Monitoring Requirements [facility] Suicide Policy [facility] Suicide Risk/Telesitter Screening Utilizing this rating [...] on suicide observation protocols. lan of [facility] - Dalia Roman RN - 03/24/2019 4:24 PM PDT 8N & 8S Nursing Progress Note Patient Name: Estefani Tilley Room # 836/836-01 ISO: None Item for gullet slitter Comments Shift Summary: Include Pain RX BP [...] Goals C-SSRS Monitoring Requirements [facility] Suicide Policy [facility] Suicide Risk/Telesitter Screening Utilizing this rating [...] Planning: Received a telephone call from Emili [facility] RN @ [facility] [phone]. Informed Emili that this patient was transferred to [facility]. Electronically signed by: Michelle Jackson 03/24/2019 8:45 lan of Ginger Poe RN - 03/24/2019 5:28 AM PDTFormatting of this note might be different from the o riginal. 8N & 8S Nursing Progress Note Patient Name: Estefani Tilley Room # 836/836-01 ISO: None Item for gullet slitter Comments Shift Summary: Include Pain RX BP within ordered parameters? Stroke pt?:Depression screen Day 2 Pt admitted from hospital in [place] via [facility] at 0100. S/p c/o severe [...] Pending C-SSRS Monitoring Requirements [facility] Suicide Policy [facility] Suicide Risk/Telesitter Screening Utilizing this rating [...] | [facility] | | | POC | [facility] [address], | | SACRED | | | | [place] [address] | | HEART | | | |Performed by [facility] [address] [place], [place] [address] | | MEDICAL | | | | [...] + | [facility] | [address] | [place] [address] | | | [facility] | | | | | LABORATORY [...] | [facility] | | | POC | [facility] [address], | | [address]CRED | | | | [place] [address] | | HEART | | | |Performed by [facility] [address], [place] [address] | | MEDICAL | | | | [...] + | [facility] | [address] | [place] [address] | | | [facility] | | | | | LABORATORY [...] | | LABORATORY | | | | [facility] [address], | | [place] | | | | [place] [address] | | | | + + + + + + + + | Specimen | + + | Blood specimen | | (specimen) | + + + + + + + | Performing | Address | City/State/Zipcode | Phone Number | | Organization | | | | + + + + + | [facility] | [address] | [place] [address] | | | [facility] | | | | | LABORATORY [...] ENCE | | | Immature | by [facility] [address], | K/uL | SACRED | | | Granulocyte | [place] [address] | | HEART | | | s |Performed by [facility] [address], [place] [address] | | MEDICA L | | | [...] + | [facility] | [address] | [place] [address] | | | [facility] | | | | | [...] by | | | | | | [facility] [address] [place], | | | | | | [place] [address] | | | | + + + + + + + + | Specimen | + + | Blood specimen | | (specimen) | + + + + + + + | Performing | Address | City/State/Zipcode | Phone Number | | Organization | | | | + + + + + | [facility] | [address] | [place] [address] | | | [facility] | | | | | LABORATORY [...] | | | POC | Performed by [facility] [address] | [address] | | | [address], [place] | | HEART | | | | [address] | | MEDICAL | | | | [...] [address] | [place] [address] | | | [facility] | [...] | | | POC | Performed by [facility] [address] | | [address] | | | | [address] [place] | | HEART | | | | [address] | | MEDICAL | | | | [...] + | [facility] | [address] | [place] [address] | | | [facility] | | | | | LABORATORY [...] | | | POC | Performed by [facility] [address] | | [address] | | | [address], [place] | | HEART | | | | [address] | | MEDICAL | | | | [...] SACRED | [address] | [place] [address] | | | [facility] | [...] | | | POC | Performed by [facility] [address] | | [address] | | | | [address] [place] | | HEART | | | | [address] | | MEDICAL | | | | [...] + | [facility] | [address] | [place] [address] | | | [facility] | | | | | LABORATORY [...] PROVIDE NCE | | | | by [facility] [address], | | [place]CRED | | | | [place] [address] | | HEART | | | |Performed by [facility] [address], [place] [address] | | MEDICAL | | | | [...] + + | BETH [facility] | [address] | [place] [address] | | | [facility] | | | | | YANY [...] LUIS DAVISON | | | | by [facility] [address], | | SACRED | | | | [place], [place] | | HEART | | | |Performed by [facility] [address], [place], [place] | | MEDICAL | | | [...] + + | [facility] | [address] | [place], [place] | | | [facility] [...] | | LABORATORY | | | | [facility] [address], | | CERNER | | | | [place] [address] | | | | + + + + + + + + | Specimen | + + | Blood specimen | | (specimen) | + + + + + + + | Performing | Address | City/State/Zipcode | Phone Number | | Organization | | | | + + + + + | BETH [facility]Z | [address] | [place] [address] | | | [facility] | | | | | LABORATORY [...] ENCE | | | Counted | by [facility] [address], | | SACRED | | | | [place] [address] | | HEART | | | |Performed by [facility] [address], [place] [address] | | MEDICA L | | | [...] [address] | [place] [address] | | | [facility] | | | | | LABORATORY [...] | | | POC | Performed by [facility] [address] | | AGUSTO | | | | [address], [place] | | HEART | | | | [address] | | MEDICAL | | | | [...] + | BETH LIZ | [address] | [place] [address] | | | [facility] | | | | | YANY [...] | PROVIDENCE | | | POC | [facility] [address], | | SACRED | | | | [place] [address] | | HEART | | | |Performed by [facility] [address], [place] [address] | | MEDICAL | | | | [...] + | BETH [facility]Z | [address] | [place] [address] | | | [facility] | | | | | YANY [...] | | | POC | Performed by [facility] [address] | | SACRED | | | | [address], [place] | | HEART | | | | [address] | | MEDICAL | | | | [...] [address] | [place] [address] | | | [facility] | [...] | PROVIDENCE | | | POC | [facility] [address], | | SACRED | | | | [place] [address] | | HEART | | | |Performed by [facility] [address], [place] [address] | | MEDICAL | | | | [...] + | JIMRENUKA LIZ | [address] | [place] [address] | | | [facility] | | | | | LABORATORY [...] by | | | | | | [facility] [address], | | | | | | [place] [address] | | | | + + + + + + + + | Specimen | + + | Blood specimen | | (specimen) | + + + + + + + | Performing | Address | City/State/Zipcode | Phone Number | | Organization | | | | + + + + + | BETH [facility] | [address] | [place] [address] | | | [facility] | | | | | LABORATORY [...] ENCE | | | Counted | by [facility] [address], | | SACRED | | | | [place] [address] | | HEART | | | |Performed by [facility] [address], [place] [address] | | MEDICA L | | | [...] + + | BETH [facility]Z | [address] | [place], [place] | | | [facility] | | | | | LABORATORY [...] LUIS CE | | | | by [facility] [address], | | SACRED | | | | [place] | | HEART | | | |Performed by [facility] [address], [place] | | MEDICAL | | | [...] + + | BETH LIZ | [address] | [place] [address] | | | [facility] | | | | | YANY [...] | | LABORATORY | | | | [facility] [address], | | [place] | | | | [place] [address] | | | | + + + + + + + + | Specimen | + + | Blood specimen | | (specimen) | + + + + + + + | Performing | Address | City/State/Zipcode | Phone Number | | Organization | | | | + + + + + | BETH [facility] | [address] | [place] [address] | | | [facility] | | | | | LABORATORY [...] | | | POC | Performed by [facility] [address] | | SACREVANS | | | | [address] [place], [place] | | HEART | | | | [address] | | MEDICAL | | | | [...] + + | BETH LIZ | [address] | [place] [address] | | | [facility] | | | | | LABORATORY [...] | | | POC | Performed by [facility] [address] | | SACRED | | | | [address] [place] | | HEART | | | | [address] | | MEDICAL | | | | [...] SACRED | [address] | [place] | | | [facility] [...] | RIMAE | | | POC | [facility] [address], | | SACRED | | | | [place] | | HEART | | | |Performed by [facility] [address], [place] | | MEDICAL | | | [...] + | BETH LIZ | [address] | [place] [address] | | | [facility] | | | | | LABORATORY [...] | | LABORATORY | | | | [facility] [address], | | [place] | | | | [place] [address] | | | | + + + + + + + + | Specimen | + + | Blood specimen | | (specimen) | + + + + + + + | Performing | Address | City/State/Zipcode | Phone Number | | Organization | | | | + + + + + | [facility] | [address] | [place] [address] | | | [facility] | | | | | LABORATORY [...] PROVID ENCE | | | | by [facility] [address], | | SACRED | | | | [place] [address] | | HEART | | | |Performed by [facility] [address], [place] [address] | | MEDICA L | | | [...] [address] | [place] [address] | | | [facility] | | | | | LABORATORY [...] | | | POC | Performed by [facility] [address] | | SACREVANS | | | | [address] [place], [place] | | HEART | | | | [address] | | MEDICAL | | | | [...] + | BETH LIZ | [address] | [place] [address] | | | [facility] | | | | | YAYN DENNISON | | | | + + [...] | | | POC | Performed by [facility] [address] | | SACREVANS | | | | [address]th [place] | | HEART | | | | [address] | | MEDICAL | | | | [...] Ave. | [place] | | | [facility] | | | | | LABORATORY [...] | BETH | | | POC | [facility] [address], | | SACRED | | | | [place] | | HEART | | | |Performed by [facility] [address], [place] [address] | | MEDICAL | | | | [...] + + | BETH LIZ | [address] | [place] [address] | | | [facility] | | | | | [...] | PROVIDENCE | | | POC | [facility] [address], | | SACRED | | | | [place] [address] | | HEART | | | |Performed by [facility] [address], [place] [address] | | MEDICAL | | | | [...] | JIMJOSE ADora GOFFEVANS | [address] | [place] [address] | | | [facility] | | | | | LABORATORY [...] by | | | | | | [facility] [address], | | | | | | [place] [address] | | | | + + + + + + + + | Specimen | + + | Blood specimen | | (specimen) | + + + + + + + | Performing | Address | City/State/Zipcode | Phone Number | | Organization | | | | + + + + + | [facility] | [address] | [place] [address] | | | [facility] | | | | | LABORATORY [...] | | | POC | Performed by [facility] [address] | | SACRED | | | | [address], [place] | | HEART | | | | [address] | | MEDICAL | | | | [...] + | BETH LIZ | [address] | [place] [address] | | | [facility] | | | | | LABORATORY [...] | | | POC | Performed by [facility] [address] | | SACRED | | | | [address] [place] | | HEART | | | | [address] | | MEDICAL | | | | [...] + + | RIMAE AGUSTO | [address] | [place] [address] | | | [facility] | | | | | LABORATORY [...] | | | POC | Performed by [facility] [address] | | SACRED | | | | [address], [place] | | HEART | | | | [address] | | MEDICAL | | | | [...] + + | BETH LIZ | [address] | [place] [address] | | | [facility] | | | | | LABORATORY [...] PROVIDENCE | | | | Performed by [facility] [address] | | SACRED | | | | [address] [place] | | HEART | | | | [address] | | MEDICAL | | | | [...] [address] | [place] [address] | | | [facility] | | | | | LABORATORY [...] | | | POC | Performed by [facility] [address] | | SACREVANS | | | | [address], [place] | | HEART | | | | [address] | | MEDICAL | | | | [...] + | BETH [facility] | [address] | [place] [address] | | | [facility] | [...] by | | | | | | [facility] [address], | | | | | | [place] [address] | | | | + + + + + + + + | Specimen | + + | Blood specimen | | (specimen) | + + + + + + + | Performing | Address | City/State/Zipcode | Phone Number | | Organization | | | | + + + + + | JIMRENUKA LIZ | [address] | [place] [address] | | | [facility] | | | | | LABORATORY [...] | [place] | | | | [place] [address] | | | | + + + + + + + + | Specimen | + + | Blood specimen | | (specimen) | + + + + + + + | Performing | Address | City/State/Zipcode | Phone Number | | Organization | | | | + + + + + | BETH LIZ | [address] | [place] [address] | | | [facility] | | | | | YANY [...] PROVID ENCE | | | | by [facility] [address], | | SACRED | | | | [place] [address] | | HEART | | | |Performed by [facility] [address], [place] [address] | | MEDICA L | | | [...] + + | BETH LIZ | [address] | [place] [address] | | | [facility] | [...] DAVISON | | | B-12 | by [facility] [address], | | SACRED | | | | [place] [address] | | HEART | | | |Performed by [facility] [address], [place] [address] | | MEDICAL | | | | [...] [address] | [place] [address] | | | [facility] | | | | | LABORATORY [...] by | | | | | | [facility] [address], | | | | | | [place] [address] | | | | + + + + + + + + | Specimen | + + | Blood specimen | | (specimen) | + + + + + + + | Performing | Address | City/State/Zipcode | Phone Number | | Organization | | | | + + + + + | JIMJOSE ADora LIZ | [address] | [place] [address] | | | [facility] | | | | | YANY [...] | | | POC | Performed by [facility] [address] | | SACRED | | | | [address] [place] | | HEART | | | | [address] | | MEDICAL | | | | [...] [address] | [place] [address] | | | [facility] | | | | | LABORATORY [...] | | | POC | Performed by [facility] [address] | | SACRED | | | | [address], [place] | | HEART | | | | [address] | | MEDICAL | | | | [...] | JIMJOSE ADora AGUSTO | [address] | [place] [address] | | | [facility] | | | | | YANY [...] | | | POC | Performed by [facility] [address] | | SACRED | | | | [address] [place] | | HEART | | | | [address] | | MEDICAL | | | | [...] + + | BETH LIZ | [address] | [place] [address] | | | [facility] | | | | | LABORATORY [...] PROVID ENCE | | | | by [facility] [address], | | SACRED | | | | [place] [address] | | HEART | | | |Performed by [facility] [address], [place] [address] | | MEDICA L | | | [...] + | JIMJOSE ADora LIZ | [address] | [place] [address] | | | [facility] | | | | | LABORATORY [...] LUIS CE | | | | by [facility] [address], | | SACRED | | | | [place] [address] | | HEART | | | |Performed by [facility] [address], [place] [address] | | MEDICAL | | | | [...] SACRED | [address] | [place] [address] | | | [facility] | | | | | [...] | | LABORATORY | | | | [facility] [address], | | [place] | | | | [place] [address] | | | | + + + + + + + + | Specimen | + + | Blood specimen | | (specimen) | + + + + + + + | Performing | Address | City/State/Zipcode | Phone Number | | Organization | | | | + + + + + | BETH LIZ | [address] | [place] [address] | | | [facility] | | | | | LABORATORY [...] | | | POC | Performed by [facility] [address] | | SACRED | | | | [address] [place], [place] | | HEART | | | | [address] | | MEDICAL | | | | [...] | JIMJOSE ADora AGUSTO | [address] | [place] [address] | | | [facility] | | | | | LABORATORY [...] | | | POC | Performed by [facility] [address] | | SACRED | | | | [address], [place] | | HEART | | | | [address] | | MEDICAL | | | | [...] [address] | [place] [address] | | | [facility] | [...] | SACRED | | | Total | [address] | | HEART | | | | [address] [place], [place] | | MEDICAL | | | | [id number] Daniel | | JOSE | | | | Lauro HOLDEN Ph:[phone] | | LABORATORY | | | | [...] + + | BETH LIZ | [address] | [place] [address] | | | [facility] | | | | | LABORATORY [...] | SACRED | | | | by [facility] [address], | | HEART | | | | [place] [address] | | MEDICAL | | | | [...] + + | [facility] | [address] | [place] [address] | | | [facility] | | | | | LABORATORY [...] | SACRED | | | | by [facility] [address], | | HEART | | | | [place] [address] | | MEDICAL | | | | [...] + + | BETH LIZ | [address] | [place] [address] | | | HEART [facility] | | | | | LABORATORY [...] | MEDICAL | | | | by [facility] [address], | | [place] | | | | [place] [address] | | LABORATORY | | | |Performed by [facility] [address], [place] [address] | | CERNER | | | | [...] [address] | [place] [address] | | | [facility] | | | | | LABORATORY [...] | | | POC | Performed by [facility] [address] | | AGUSTO | | | | [address] [place], [place] | | HEART | | | | [address] | | MEDICAL | | | | [...] + | BETH LIZ | [address] | [place] [address] | | | [facility] | | | | | YANY [...] | | | POC | Performed by [facility] [address] | | DENVERED | | | | [address] [place] | | HEART | | | | [address] | | MEDICAL | | | | [...] + | [facility] | [address] | [place] [address] | | | HEART [facility] | | | | | LABORATORY [...] CENTER | | | | 3.5Performed by [facility] [address] | | LABORATORY | | | | [address] [place], [place] | | CERNER | | | | [address] | | | | + + + + + + + + | Specimen | + + | Blood specimen | | (specimen) | + + + + + + + | Performing | Address | City/State/Zipcode | Phone Number | | Organization | | | | + + + + + | [facility] | [address] | [place] [address] | | | [facility] | | | | | [...] | | | Immature | Performed by [facility] [address] | K/uL | SACRED | | | Granulocyte | [place] | | HEART | | | s | [phone] | | MEDICAL | | | | [...] + | BETH LIZ | [address] | [place] [address] | | | [facility] | | | | | YANY [...] | | LABORATORY | | | | [facility] [address], | | [place] | | | | [place] [address] | | | | + + + + + + + + | Specimen | + + | Blood specimen | | (specimen) | + + + + + + + | Performing | Address | City/State/Zipcode | Phone Number | | Organization | | | | + + + + + | R[facility] | [address] | [place] [address] | | | [facility] | | | | | LABORATORY [...] scheduled: AC, NPO, Daytime | | | 8826-5925 Use NIGHT DOSE for | | | doses scheduled: HS, 3AM, | | | Nighttime 8052-8976 If the BG is | | | [...]
--- OUTSIDE RECORDS SUMMARY | ~2020-03-23 | XMS | Encounter Summary ---
Demographics + + + | Address | [address] | | | [place] [address] | + + + | Home Phone [...] | Author | [facility] | | | and [place] | + + + | Organization | [facility] | | | and [place] | + + + | Address | Unknown | + + + | Phone | Unavailable | + + + Support + + + + + | Name | Relationship | Address | Phone | + + + + + | India Tilley | ECON | [address] | | | | | [place], [place] | | | | | [address] | | + + + + + [...] Team Providers + +------+ + | Care Adjunct Philosophy Faculty Name | Role | Phone | + +------+ + PCP | Unavailable | + +------+ + Encounter Details +--------+ + + + + | Date | Type | Department | Care Team | Description | +--------+ + + + + | 11/07/ | Hospital | [facility] | Peyman Wu, | CHR ISCHEMIC HRT DIS | | 2002 | Encounter | MEDICAL CENTER | [address] | NOS | | | | CLINICAL DECISION | [address] | | | | | [address] | [address] | | | | | [place], [place] | | | | | | [address] | | | | | | [phone] | | | +--------+ + + + [...]
--- OUTSIDE RECORDS SUMMARY | ~2020-03-23 | XMS | Encounter Summary ---
Demographics + + + | Address | [address] | | | [place] [address] | + + + | Home Phone [...] | Author | [facility] | | | and [place] | + + + | Organization | [facility] | | | and [place] | + + + | Address | Unknown | + + + | Phone | Unavailable | + + + Support + + + + + | Name | Relationship | Address | Phone | + + + + + | India Tilley | ECON | [address] | | | | | [place], [place] | | | | | [address] | | + + + + + [...] Team Providers + +------+ + | Care Sketcher Name | Role | Phone | + +------+ + PCP | Unavailable | + +------+ + Encounter Details +--------+ + + + + | Date | Type | Department | Care Team | Description | +--------+ + + + + | 05/16/ | [facility] | [facility] | Patricia, | | | 2007 - | Encounter | [facility] | Venkatesh Forte MD [address] | | | | CENTER [address] | [place] | | | 06/12/ | | [place] | [place] [address] | | | 2007 | | [address] | [phone] | | | | | [phone] | | | +--------+ + + + [...]
--- OUTSIDE RECORDS SUMMARY | ~2020-03-23 | XMS | Encounter Summary ---
Demographics + + + | Address | [address] | | | [place] [address] | + + + | Home Phone [...] | Author | [facility] | | | and [place] | + + + | Organization | [facility] | | | and [place] | + + + | Address | Unknown | + + + | Phone | Unavailable | + + + Support + + + + + | Name | Relationship | Address | Phone | + + + + + | India Tilley | ECON | [address] | | | | | [place], [place] | | | | | [address] | | + + + + + [...] Providers + +------+ + | Care Production Manufacturing Worker Name | Role | Phone | + +------+ + PCP | Unavailable | + +------+ + Encounter Details +--------+ + + + + | Date | Type | Department | Care Team | Description | +--------+ + + + + | 09/25/ | [facility] | [facility] | Patricia, | | | 2007 - | Encounter | MED CTR CANC[facility] | Venkatesh Forte MD [address] | | | | CENTER [address] | [place] | | | 10/13/ | | [place] | [place] [address] | | | 2007 | | [address] | [phone] | | | | | [phone] | | | +--------+ + + + [...]
--- OUTSIDE RECORDS SUMMARY | ~2020-03-23 | XMS | Encounter Summary ---
Demographics + + + | Address | [address] | | | [place] [address] | + + + | Home Phone [...] Author | [facility] | | | and [place] | + + + | Organization | [facility] | | | and [place] | + + + | Address | Unknown | + + + | Phone | Unavailable | + + + Support + + + + + | Name | Relationship | Address | Phone | + + + + + | India Tilley | ECON | [address] | | | | | [place], [place] | | | | | [address] | | + + + + + [...] Team Providers + +------+ + | Care Spiritual Advisor Name | Role | Phone | [...] [place] | Dx) | | | | [address] | [address] | | | | | [phone] | | | +--------+ + + + [...] 03/23/2017 2:38 PM PDTRenal Ultrasound scheduled at [facility] on 03/29/17 at 10 AM. docu mented in this encounter Plan of Treatment Not on filedocumented as of this encounter Visit Diagnoses + + | Diagnosis | + + | Chronic kidney disease, stage III (moderate) (HCC) - Primary Chronic kidney disease, | | Stage III (moderate) | + + documented in this encounter"
--- OUTSIDE RECORDS SUMMARY | ~2020-03-23 | XMS | Encounter Summary ---
Demographics + + + | Address | [address] | | | [place] [address] | + + + | Home Phone [...] | Author | [facility] | | | and [place] | + + + | Organization | [facility] | | | and [place] | + + + | Address | Unknown | + + + | Phone | Unavailable | + + + Support + + + + + | Name | Relationship | Address | Phone | + + + + + | India Tilley | ECON | [address] | | | | | [place], [place] | | | | | [address] | | + + + + + [...] Team Providers + +------+ + | Care Services Tech Name | Role | Phone | + +------+ + | Renato Pierson | PCP | | + +------+ + Reason for Visit +--------+--------+ + | Reason | Onset | Comments | | | Date | | +--------+--------+ + | Other | 01/21/ | | | | 2020 | | +--------+--------+ + Encounter Details +--------+ + + + + | Date | Type | Department | Care Team | Description | +--------+ + + + + | 01/21/ | Telephone | [facility] [place] | [place], | Other | | 2020 | | NEPHROLOGY [address] | [address] | | | | | [address] | [address] | | | | | [place], [place] | [address] [place], [place] | | | | | [address] | [address] | | | | | [phone] | | | +--------+ + + + [...] Telephone Encounter - Celeste Butler RN - 01/22/2020 2:22 PM PDTPatient's caregiver Antonio dang called and notified to have patient restrict fluid intake and potassium rich foods until she attends dialysis tomorrow - she verbally expressed a clear understanding. Dr. Ken to resume care of patient. Electronically signed by Celeste Butler RN at 2019 2:26 PM PDTdocumented in this encounter Plan of Treatment Not on filedocumented as of this encounter Visit Diagnoses Not on filedocumented in this encounter"
--- OUTSIDE RECORDS SUMMARY | ~2020-03-23 | XMS | Encounter Summary ---
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 | Role | Phone | [...] Closed | | Infusion | Diagnoses | [facility] | [facility] | | | | Therapy | ESRD (end | MD Nora | Infusion [address] | | | | | stage renal | [address] | [address] | | | | | disease) on | [address] [place] | [place], | | | | | dialysis | [place], [place] | [place] [address] | | | | | (FORMERLY [facility]) | [address] | Phone: | | | | | | Phone: | [phone] | | | | | | [phone] | Fax: | | | | | | Fax: | [phone] | | | | | | [phone] | | +--------+--------+ + + + + [...] | | | disease) on | | [address] | | | | | dialysis | [facility], [place] | [place] | | | | | (FORMERLY [facility]) | [address] | [address] | | | | | Essential | Phone: | Phone: | | | | | hypertension | [phone] | [phone] | | | | | Type 2 | Fax: | Fax: | | | | | diabetes | [phone] | [phone] | | | | | mellitus | [...] | | | | | | (FORMERLY [facility]) | | | +--------+ + + + + + Evaluate & Treat (Routine) +--------+ + + + + + | Status | Reason | Specialty | Diagnoses / | Referred By | Referred To | | | | | Procedures | Contact | Contact | +--------+ + + + + + | Closed | Specialty | Physical | Diagnoses | [facility] | [facility] | | | Services | Therapy | ESRD (end | MD Nora | HOSPITAL | | | Required | | stage renal | [address] | [address] | | | | | disease) on | [address] | [address] | | | | | dialysis | [address] | [place] | | | | | ([facility]ERLY [facility]) | [address] | [address] | | | | | Essential | Phone: | Phone: | | | | | hypertension | [phone] | [phone] | | | | | Type 2 | Fax: | Fax: | | | | | diabetes | [phone] | [phone] | | | | | mellitus | [...] | | | | | | (FORMERLY [facility]) | | | +--------+ + + + [...] + + | 05/20/ | Hospital | [facility] | Mirza Retana | Hypoxia; Pulmonary | | 2019 - | Encounter | [facility] | MD Coy [address] | edema with | | | | [address] [place] | [address] [place] | congestive heart | | 05/25/ | | [place] [address] | [place] [address] | failure, NYHA class | | 2019 | | [phone] | [phone] | 4 ([facility]LY [facility]); ESRD (end | | | | | | stage renal disease) | | | | | Nora Christina MD | on dialysis ([facility]ERLY [facility]); | | | | | [address] | Hypertensive | | | | | [place] | urgency, malignant; | | | | | [address] | Anemia in chronic | | | | | | kidney disease, on | | | | | | chronic dialysis | | | | | | (FORMERLY [facility]); Essential | | | | | | hypertension; | | | | | | Osteomyelitis of | | | | | | thoracic region | | | | | | (HCC); Type 2 | | | [...] Christina MD - 05/25/2019 11:24 AM PDT [place] HOSPITALIST DISCHARGE SUMMARY Pt. Name/Age/: Ara Campos 74 y.o. 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 S/p thoracentesis wit h 1300cc fluid removed, studies c/w transudative effusion. Cytology negative for malignant c ells. No growth on culture thus far. Patient is on room air. Of note, recent echo in March owed normal EF. 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 SBP 200s on a rrival here. Blood pressure improved after HD, resumption of home medications. Amlodipine an d losartan also added, Nephrology will CTM as outpatient. #Acute metabolic encephalopathy Possibly 2/2 medication as patient received 1mg Ativan at OSH SOFTWARE TEAM LEADER. At baseline currently. #Recent osteomyelitis Patient admitted [...] 1 tablet by mouth Daily. aka: GIOVANA Lozano: 05/26/2019 Unchanged Medications Details acetaminophen 500 mg [...] Nephrology Why: Nephrology follow up Contact information: [address] [place] [id number] Condition: stable Diet: renal, cc Greater than 30 minutes were spent on discharge and coordination of post-hospital care. Electronically signed by: Nora Christina MD, 05/25/2019 11:24 [facility] documented in this enco unter Discharge [...] will likely include a biopsy in the [place] down the line. Nora Christina MD documented [...] +---------+ + + | acetaminophen | Take 650-975 mg by | | 0 | | | | (TYLENOL) 325 mg | mouth every 4 hours | | | | 0 | | tablet | as needed for Pain | | | | | | | or Fever. | | | | | + + + +---------+ + + | amLODIPine | Take 1 tablet by | 60 | 0 | 05/25/20 | | | (NORVASC) 5 mg | mouth 2 times daily. | tablet | | 19 | 0 | | tablet | | | | [...] vein Three | | | 19 | 0 | | 4,000 units/mL | times a week. | | | | | | injection | | | | | | + + + +---------+ + + | furosemide (LASIX) | Take 1 tablet by | 90 | 3 | 05/11/20 | | | 80 mg tablet | mouth Daily. | tablet | | 19 | 0 | + + + +---------+ + + | losartan (COZAAR) | Take 1 tablet by | 30 | 0 | 05/26/20 | | | 100 MG tablet | mouth Daily. | tablet | | 19 | 0 | + + + +---------+ + + | NIFEdipine | Take 1 tablet by | 90 | 3 | 04/26/20 | | | (PROCARDIA XL) 90 mg | mouth Daily. | tablet | | 19 | 0 | | ER tablet | | | [...] (HCC), Diabetes (HCC), Heart disease, Hemodialysis patient ([facility]LY [facility]), History of blood clots, Hypercholesteremia, Hypertensio n, Hypothyroidism, Renal failure, Seasonal allergies, and Stroke (cerebrum) (FORMERLY [facility]). . Risk fa ctors for MDR organisms [...] Culture, Body Fluid, Sterile, Smear, with Anaerobes [[id number]] Collected: 05/22/19 150 Order Status: Sent Lab Status: In process Updated: 05/22/19 151 Specimen: Body Fluid from Pleural Fluid, Left Narrative: The following orders were created for panel order Culture, Body Fluid, Sterile, Smear, wit h Anaerobes. Procedure Abnormality Status --------- ------ Culture, Body Fluid, Aerobe[[id number]] Preliminary result Culture, Body Fluid, Bre...[[id number]] In process Please view results for these tests on the individual orders. Culture, Fungus, Smear [[id number]] Collected: 05/22/19 150 Order Status: Sent Lab Status: In process Updated: 05/22/19 151 Specimen: Body Fluid from Pleural Fluid, Left Culture, Body Fluid, Aerobe [[id number]] Collected: 05/22/19 150 Order Status: Completed Lab Status: Preliminary result Updated: 05/24/19 1038 Specimen: Body Fluid from Pleural Fluid, Left Culture No growth to date Gram Stain Result 4+ White Blood Cells No organisms seen Culture, Body Fluid, Anaerobe [[id number]] Collected: 05/22/19 150 Order Status: Resulted Lab Status: In process Updated: 05/22/19 1510 Specimen: Body Fluid from Pleural Fluid, Left Culture, MRSA [[id number]] Collected: 05/20/19 202 Order Status: Completed Lab Status: Final result Updated: 05/22/19 0753 Specimen: Tissue from Nares Culture Negative for MRSA by chromogenic agar method. 2+ Coagulase positive Staphylococcus Culture, Blood, 2nd Specimen [[id number]] Collected: 05/18/19 1548 Order Status: Completed Lab Status: Final result Updated: 05/24/19545 RESULT NO GROWTH 6 DAYS RESULT Testing performed at [facility];[address] [place] [address];[place] [address] Comment: Testing performed at [facility], [address] [place] [address], [place] [address] Culture, Blood [[id number]] Collected: 05/18/19 1508 Order Status: Completed Lab Status: Final result Updated: 05/24/19545 Specimen: Blood from Antecubital, Right RESULT NO GROWTH 6 DAYS RESULT Testing performed at [facility];[address] [place] [address];[place] [address] Comment: Testing performed at [facility], [address] [place] [address], [place] [address] Culture, Blood [[id number]] Collected: 05/18/19 1447 Order Status: Canceled Lab [...] 0312 05/21/19 0415 05/20/19 2248 05/20/19 2111 05/20/191 05/18/19 1545 WBC -- 4.6 4.8 5.6 [...] and htn Prior to admission dialysis schedule: [facility] Vancomycin Dosing in HD patients: Loading dose [...] and Monitoring Protocol Electronically signed by: Sheri Huang, PharmD 05/25/2019 3:31 Karena Slater RN - [...] ESR, Cxs, case with his previous ID Ammonia Technician, Dr. Nick Miller MD . He recommends [...] Bx's here. Therefore, shai kearney confer with [facility] IR, outpt. She was agreeable to staying one more nite for HD and clarif y AB regimen. Vanc. /Cefepime were given, IV, during discussion, after reviewing MRI report but before the phone conversation with Dr. Jung. BP control is better. Her Mental status is very clear. Also had HD x 5 hrs, 2K+, 35 HCO3 a nd tolerated well. [facility] Joo Rodriguez, Train Gate Attendant - 05/24/2019 3:46 PM PDT VANCOMYCIN PER [...] failure, Seasonal allergies, and Stroke (cerebrum) (FORMER[facility]). . Risk fa ctors for MDR organisms [...] Culture, Body Fluid, Sterile, Smear, with Anaerobes [[id number]] Collected: 05/22/19 150 Order Status: Sent Lab Status: In process Updated: 05/22/191512 Specimen: Body Fluid from Pleural Fluid, Left Narrative: The following orders were created for panel order Culture, Body Fluid, Sterile, Smear, wit h Anaerobes. Procedure Abnormality Status --------- ------ Culture, Body Fluid, Aerobe[[id number]] Preliminary result Culture, Body Fluid, Bre...[[id number]] In process Please view results for these tests on the individual orders. Culture, Fungus, Smear [[id number]] Collected: 05/22/19 150 Order Status: Sent Lab Status: In process Updated: 05/22/19 151 Specimen: Body Fluid from Pleural Fluid, Left Culture, Body Fluid, Aerobe [[id number]] Collected: 05/22/19 1509 Order Status: Completed Lab Status: Preliminary result Updated: 05/24/19 1038 Specimen: Body Fluid from Pleural Fluid, Left Culture No growth to date Gram Stain Result 4+ White Blood Cells No organisms seen Culture, Body Fluid, Anaerobe [[id number]] Collected: 05/22/19 1509 Order Status: Resulted Lab Status: In process Updated: 05/22/19 151 Specimen: Body Fluid from Pleural Fluid, Left Culture, MRSA [[id number]] Collected: 05/20/192021 Order Status: Completed Lab Status: Final result Updated: 05/22/19 0753 Specimen: Tissue from Nares Culture Negative for MRSA by chromogenic agar method. 2+ Coagulase positive Staphylococcus Culture, Blood, 2nd Specimen [[id number]] Collected: 05/18/19 1548 Order Status: Completed Lab Status: Final result Updated: 05/24/19545 RESULT NO GROWTH 6 DAYS RESULT Testing performed at [facility];[address] [place] [address];[place] [address] Comment: Testing performed at [facility], [address] [place] [address], [place] [address] Culture, Blood [[id number]] Collected: 05/18/19 1508 Order Status: Completed Lab Status: Final result Updated: 05/24/19545 Specimen: Blood from Antecubital, Right RESULT NO GROWTH 6 DAYS RESULT Testing performed at [facility];[address] [place] [address];[place] [address] Comment: Testing performed at [facility], [address] [place] [address], [place] [address] Culture, Blood [[id number]] Collected: 05/18/19 1447 Order Status: Canceled Lab [...] 0510 05/22/19 0312 05/21/19 0415 05/20/19 2248 05/20/191 05/20/19205005/18/19 1545 WBC 4.6 4.8 5.6 6.9 [...] BP elevated Prior to admission dialysis schedule: F Vancomycin Dosing in HD patients: Loading dose [...] Monitoring Protocol Electronically signed by: Joo Bo, Train Gate Attendant 05/24/2019 15:46Electroni terri signed by Joo Bo, Train Gate Attendant at 05/24/2019 4:49 PM Kwame Guerin MD - 05/24/2019 11:04 AM PDTFormatting of this note might be different from the origin [place], [place] HOSPITALIST PROGRESS NOTE Patient: Ara Campos : 1945: Age: 74 y.o. 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 At baseline currently. #Recent osteomyelitis Patient admitted 03/24- with T11-12 osteomyelitis and completed 6 weeks vanc/cefepime. Rep eat MRI again redemonstrated possible osteomyelitis - vanc and cefepime have been resumed, Deepa Muñoz is discussing case with ID. #Diabetes Blood sugars at goal. CCM. Patient is again very upset about the food provided at the [facility] and is eating little to no food [...] Culture, Body Fluid, Sterile, Smear, with Anaerobes [[id number]] Collected: 05/22/19 150 Order Status: Sent Lab Status: In process Updated: 05/22/19 151 Specimen: Body Fluid from Pleural Fluid, Left Narrative: The following orders were created for panel order Culture, Body Fluid, Sterile, Smear, wit h Anaerobes. Procedure Abnormality Status --------- ------ Culture, Body Fluid, Aerobe[[id number]] Preliminary result Culture, Body Fluid, Bre...[[id number]] In process Please view results for these tests on the individual orders. Culture, Fungus, Smear [[id number]] Collected: 05/22/19 150 Order Status: Sent Lab Status: In process Updated: 05/22/19 151 Specimen: Body Fluid from Pleural Fluid, Left Culture, Body Fluid, Aerobe [[id number]] Collected: 05/22/19 150 Order Status: Completed Lab Status: Preliminary result Updated: 05/24/19 1038 Specimen: Body Fluid from Pleural Fluid, Left Culture No growth to date Gram Stain Result 4+ White Blood Cells No organisms seen Culture, Body Fluid, Anaerobe [[id number]] Collected: 05/22/19 1509 Order Status: Resulted Lab [...] diskitis of T11-T12, s/p AB Rx. Thanks. [employer] [facility]: MRI and CT dated 03/23/2019. FINDINGS: [...] Successful ultrasound-guided thoracentesis. Dictated and Signed by: Anna Nunez MD Electronically signed: 05/22/2019 3:29 PM Vitals Ranges: Temp: [35.7 C (96.3 F)-36.7 C (98 F)] 36.7 C (98 F) Pulse: [53-62] 62 Resp: [16-20] 20 BP: (142-180)/(55-80) 180/76 Vitals: Temp: 36.7 C (98 F) BP: 180/76 Pulse: 62 Resp: 20 SpO2: 90 % SpO2 90 % on room air at flow rate 6L/min Nora Christina MD 05/24/2019 11:04 [facility] Michelle Solorzano Phar mD - 05/23/2019 6:27 [...] strength, and direction ? Pharmacy list names: [facility] ([place]) ? [employer] insurance reported information Vaccines up [...] Tobacco & Alcohol use/frequency: ? 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 She either di d not want to take her medications, or she stated that she did not know if she was taking th em. She did not want to do the interview. Best possible SOFTWARE TEAM LEADER medication list after pharmacy review: Medication review performed and electronically signed by Kerry Jordan, Transportation Driver 05/23/2019 16:20 Reviewed by Michelle Ochoa, PharmD 05/23/2019 18:26 Nora Guerin MD - 05/23/2019 3:20 PM PDT [place] HOSPITALIST PROGRESS NOTE Patient: Ara Campos : 1945: Age: 74 y.o. 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 At baseline currently. #Recent osteomyelitis Patient admitted [...] Units 0-6 Units Subcutaneous 4x D aily and HS Olegario Peng MD labetalol (NORMODYNE) tablet 300 mg 300 mg Oral BID Olegario Peng MD 300 mg at 0834 labetalol (TRANDATE) 5 mg/mL injection 20 mg 20 mg Intravenous Q2H PRN Gopi estevse DO 20 mg at 05/21/19 1406 levothyroxine [...] Culture, Body Fluid, Sterile, Smear, with Anaerobes [[id number]] Collected: 05/22/19 150 Order Status: Sent Lab Status: In process Updated: 05/22/191512 Specimen: Body Fluid from Pleural Fluid, Left Narrative: The following orders were created for panel order Culture, Body Fluid, Sterile, Smear, wit h Anaerobes. Procedure Abnormality Status --------- ------ Culture, Body Fluid, Aerobe[[id number]] Preliminary result Culture, Body Fluid, Bre...[[id number]] In process Please view results for these tests on the individual orders. Culture, Fungus, Smear [[id number]] Collected: 05/22/191508 Order Status: Sent Lab Status: In process Updated: 05/22/191509 Specimen: Body Fluid from Pleural Fluid, Left Culture, Body Fluid, Aerobe [[id number]] Collected: 05/22/19 150 Order Status: Completed Lab Status: Preliminary result Updated: 05/23/19 09 Specimen: Body Fluid from Pleural Fluid, Left Culture No growth to date Gram Stain Result 4+ White Blood Cells No organisms seen Culture, Body Fluid, Anaerobe [[id number]] Collected: 05/22/19 150 Order Status: Resulted Lab Status: In process Updated: 05/22/191509 Specimen: Body Fluid from Pleural Fluid, Left Culture, MRSA [[id number]] Collected: 05/20/192021 Order Status: Completed Lab Status: [...] Successful ultrasound-guided thoracentesis. Dictated and Signed by: Anna Nunez MD Electronically signed: 05/22/2019 3:29 PM Vitals Ranges: Temp: [35.9 C (96.6 F)-36.5 C (97.7 F)] 36.3 C (97.4 F) Pulse: [52-62] 62 Resp: [16-18] 16 BP: (152-185)/(50-75) 172/75 Vitals: Temp: 36.3 C (97.4 F) BP: 172/75 Pulse: 62 Resp: 16 SpO2: 93 % SpO2 93 % on room air at flow rate 0.5L/min Nora Christina MD 05/23/2019 15:20 [facility] documented in this enco unter H&P Notes Akash Ashraf MD - 05/23/2019 4:22 PM PDTSurgical Interim History & Physical Upda te Pt. Name/Age/: Ara Jimenez Jarek 74 y.o. 1945 Date of Admission: 05/20/2019 The current H&P was reviewed. The patient was reexamined. Re-evaluation of the patient co nfirms the necessity for the scheduled procedure. No change has occurred in the patient s condition since the H&P was completed less than 30 days ago. Mallampati Class 3 (soft and hard palate clearly) [place] [employer] of Anesthesia Grade:ASA 2 - A patient with mild systemic disease Sedation Plan:Moderate VERIFICATION OF CONSENT (PARQ) The patient was counseled regarding the procedure, its indications, risks, potential compli cations and alternatives. Any questions were answered. Consent was obtained. Akash Ashraf MD, 05/23/2019 16:22 [facility] Chuck Kasper MD - 05/20/2019 8:42 PM PDT [place] HOSPITALIST HISTORY & PHYSICAL Patient: Ara Jimenez Jarek : 1945: Age: 74 y.o. MedRec: [id number] Admission date: 05/20/2019 Hospital day # : 0 Physician author: Olegario Peng MD Today: 05/20/2019 CHIEF COMPLAINT: Shortness of breath HISTORY OF PRESENT ILLNESS: This is a 74 y.o. female with a history of end-stage renal disease (MWF), hypertension, non -insulin-dependent diabetes, hypothyroidism, anemia of chronic disease, recent admission for T11-T12 osteomyelitis 03/24-03/31 with 6-week duration of vancomycin/cefepime who presents wi th shortness of breath after missing dialysis. Patient is unwilling to answer most question s at this time. Does appear slightly lethargic but following commands and when willing to a nswer is appropriate. Patient did not give a specific reason why she missed dialysis on Wed and refused to answer it further. Patient had progressively worsening symptoms on and Wednesday. Positive dry cough. No fever/chills. No nausea/vomiting/diarrhea. Positi ve lower extremity edema. Unclear patient is compliant with medications. Patient presented [facility], patient at that time was requiring 2 LPM with elevated blood pressure 200 systolic. Labs were relatively unremarkable but due to hypoxia was requested be transferred for dialysis. PAST MEDICAL and SURGICAL HISTORY: Past Medical [...] W/CANNULATED SCREWS; Surgeon: Scott Koroma MD; Location: [facility] MAIN OR HYSTERECTOMY MASTECTOMY 2006 left ear NOSE SURGERY 2009 OTHER SURGICAL HISTORY Right 03/28/2019 Procedure: TUNNEL PICC LINE PLACEMENT-6fr 22cm BARD Power Line; Surgeon: Jose Jiménez MD; Location: [facility] INTERVENTIONAL RADIOLOGY REMOVAL TUNNELED CATHETER Right 04/04/[address] Stephenson SHUNT PLACEMENT/INSERTION N/A 11/08/2017 Procedure: Tunneled Hemodialysis Catheter Placement; Surgeon: Nora Leo MD; Location : [facility] MAIN OR SHUNT PLACEMENT/INSERTION Right 02/04/2018 Procedure: INSERTION SHUNT HEMODIALYSIS W/ PERMACATH; Surgeon: Heather Navarro MD; L ocation: [facility] MAIN OR VEIN SURGERY Right 01/04/2018 Procedure: Right Transposed Basilic Vein to Proximal Radial Artery; Surgeon: Santos Stephenson MD, FACS; Location: [facility] MAIN OR FAMILY HISTORY: family history includes Cancer in her sister; Diabetes in some other family members. SOCIAL HISTORY: reports that she has been smoking. She has never used smokeless tobacco. She reports that she does not drink alcohol or use drugs. REVIEW OF SYSTEMS: Review of Systems Constitutional: Negative. HENT: Negative. Eyes: Negative. Respiratory: Positive for cough, shortness of breath and wheezing. Cardiovascular: Negative. Gastrointestinal: Negative. Genitourinary: Negative. Musculoskeletal: Negative. Skin: Negative. Neurological: Negative. Endo/Heme/Allergies: Negative. Psychiatric/Behavioral: Negative. HOME MEDICATIONS: PT REPORTED TAKING NOT TAKING Medication Sig Last Dose Dispense Doc. Provider albuterol 90 mcg/puff inhaler Inhale 2 puffs into the lungs 4 times daily as needed for Sh ortness of Breath. Historical Provider, ARTIFICIAL TEAR SOLUTION OP Place 1-2 drops [...] meals) . 180 capsule Michelle Lopez DO Cholecalciferol 4000 units TABS Take 4,000 Units by mouth Daily. Gopi Muñoz DO cloNIDine (CATAPRES) 0.3 mg/[address] 1 patch onto the skin Once a week. 4 patch Gopi Muñoz DO epoetin karthik (EPOGEN, PROCRIT) 4,000 units/mL injection Inject 0.85 mLs into the vein Thre e times a week. Gopi Muñoz DO furosemide (LASIX) 80 mg tablet Take 1 tablet by mouth Daily. 90 tablet Gopi kearney DO gabapentin (NEURONTIN) 100 mg capsule Take 2 capsules by mouth every morning. Gopi Muñoz DO HYDROcodone-acetaminophen (NORCO) 5-325 mg per tablet Take 1 tablet by mouth every 12 hour s as needed for Pain. 40 tablet Gopi Muñoz DO hydrophilic ointment Apply 1 Application topically Daily. For dry skin Historical Provid MD margarita Insulin Pen Needle 31G X 5 MM MISC by Does not apply route. Historical Provider, labetalol (NORMODYNE) 300 MG tablet Take 1 tablet by mouth 2 times daily. 180 tablet Cyril Muñoz DO Lancets MISC by Does not apply route. Historical Provider, levothyroxine (SYNTHROID, LEVOTHROID) 75 MCG tablet Take 75 mcg by mouth every morning (be fore breakfast). Historical Provider, NIFEdipine (PROCARDIA XL) 90 mg ER tablet Take 1 tablet by mouth Daily. 90 tablet Gopi Muñoz DO olopatadine (PATANOL) 0.1% ophthalmic solution Place 1-2 drops into both eyes 2 times maite y. Historical Provider, ondansetron (ZOFRAN) 4 mg tablet Take 1 tablet by mouth every 6 hours as needed for Nausea . 20 tablet Scott Koroma MD pantoprazole (PROTONIX) 40 mg tablet Take 40 mg by mouth every morning (before breakfast). Historical Provider, ALLERGIES: Allergies Allergen Reactions Amoxicillin Other (See [...] my stomach". Naprosyn [Naproxen] VITAL SIGNS: Temp: 37.1 C (98.7 F), Pulse: 81, Resp: 22, BP: (!) 213/93, SpO2 94 % on nasal cannula at flow rate 3L/min Temp Min: 37.1 C (98.7 F) Max: 37.1 C (98.7 F) Weight: 72.8 kg (160 lb 7.9 oz) PHYSICAL EXAMINATION: Constitutional Answering questions, following commands Eye No conjunctivitis nor scleral icterus ENT Unremarkable oral ear and nose Neck No adenopathy, thyromegaly nor masses Lymph node exam Negative in the following areas: neck and epitrochlear Cardiac S1, S2 present, no murmurs Lung + Diffuse rhonchi, expiratory wheezing + tunneled line on R chest wall Abdomen + BS, Soft, NT, no HSM nor masses Extremities + 2 LE edema + RUE fistula, + thrill Psych Mood and affect normal Neuro Mildly lethargic, answering questions, no focal deficit, sensation intact DIAGNOSTIC STUDIES: Lab results last 24 hours No results found for this or any previous visit (from the past 24 hour(s)). Micro results Microbiology Results (72 hrs) Procedure Component Value Units Date/Time Culture, Blood, 2nd Specimen [[id number]] Collected: 05/18/19 1548 Order Status: Completed Lab Status: Preliminary result Updated: 05/20/19717 RESULT NO GROWTH 2 DAYS RESULT Testing performed at [facility];[address];[place] [address] Comment: Testing performed at [facility], [address], [place] [address] Culture, Blood [[id number]] Collected: 05/18/19 1508 Order Status: Completed Lab Status: Preliminary result Updated: 05/20/19717 Specimen: Blood from Antecubital, Right RESULT NO GROWTH 2 DAYS RESULT Testing performed at [facility];[address];[place] [address] Comment: Testing performed at [facility], [address], [place] [address] Radiology results No results found. I reviewed imaging I reviewed and summarized old records ASSESSMENT: Principal Problem: Acute hypoxia 2/2 to volume overload Code Status DNR/DNI Medical Decision Maker Self DVT Prophylaxis HSQ PLAN: Acute hypoxia/respiratory insufficiency secondary to volume overload in setting of end-stag e renal disease Patient missed Wednesday dialysis. Unclear reasons, patient currently refusing to answer. At outside facility, potassium 4.9, BUN 47, creatinine 7.53. BNP greater than 5000. Unable t o view chest x-ray, but from outside hospital final read reports opacity obscuring the left mid to lower lung as before consistent with atelectasis/volume overload. Remaining lung zon es are aerated but there is diffuse interstitial thickening. Pulmonary vascularity is pleth oric and the appearance suggests congestive failure although a diffuse pneumonia could look like this. -Ordered baseline labs -Dr. Muñoz is aware, plans for HD tomorrow -Oxygen therapy -Patient reports no urinary output since being on dialysis -Chest x-ray ordered here for evaluation -Cont nephrocaps, phoslo Addendum: Difficult to assess L lower lobe with opacity, ordered CT chest to assess PNA Hypertensive urgency in setting of volume overload Patient likely has noncompliance. Systolic blood pressure in 200s. -Restarted home labetalol, clonidine, nifedipine -Ordered IV labetalol 10 mg, will be difficult to control given current volume status Acute metabolic encephalopathy likely medication induced Mild confusion displayed. Does not appear to have uremia on outside facility labs. Does hav e the history of osteomyelitis, as per below. -Ordered TSH -Hepatic function labs, VBG, repeat BMP -No UA given no UOP as per patient -Will hold gabapentin -Given osteomyelitis history, will add on inflammatory factors, but only mildly elevated fr om recent ID visit on 05/18 -received 1mg of ativan at OSH prior to transfer History of T11-T12 osteomyelitis Recent admission from 03/24-03/31 with 6-week duration of vancomycin/cefepime. At that time, admitted to [facility]. IR aspiration of T11/T12 gram stain/cultures had NGTD, empirically treated. Tunneled PICC still in place -Follow in outside setting -05/18/19 infectious disease rec repeat MRI of thoracic spine and repeat Labs including infla mmatory markers Diet controlled diabetes -Carb diet -ISS Hypothyroidism -Cont synthyroid Anemia of chronic disease -B12, folic acid WNL -Fe 14, transferrin 103, %9.7 -On epogen in outpatient setting FEN: Renal, Carb PPX: HSQ Disp: PT/OT ordered CMS Documentation I expect this patient will be hospitalized for greater than 2-midnights and expect the post -hospital plan to be discharge to home or to an adult foster home. Electronically signed by: Olegario Peng MD 05/20/2019 20:42 [facility] documented in this e ncounter Consult Notes Gopi Muñoz, DO - 05/21/2019 6:10 PM PDT [facility] [address] [place] [address] NEPHROLOGY CONSULT Pt. Name/Age/: Ara Campos 74 y.o. 1945 Med. Record Number: [id number] Date of admission: 05/20/2019 Reason for consultation: Acute pulmonary edema Referring Provider: ED, [facility], [place]. 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 She skipped her Wednesday treatment, 05/19, but did attend her treatment o n 05/17. CXR showed evelin pulmonary edema and a large left-sided pleural effusion. K+ was st able and she was oxygenating relatively well on RA. She was transferred by ground ambulance . This A.M. she was promptly placed on HD with Nxstage. I have had multiple conversations with the charge nurse at [facility], as she almost daily presents with hypertensive urgency. Co nsistently with SBP > or =200 mmHg. However, Ara states that she does take her clonidin e TTS patch and oral labetalol, nifedipine XL. However, I physiologically find this hard to believe? BP was very elevated this A.M. but she did denied chest pain, diplopia, AMS, or confusion. Subsequently, a total of 4000 mL was removed today. She is breathing much bet ter. PAST MEDICAL HISTORY: 1. ESRD 2 diabetic glomerulosclerosis with the patient beginning Inpt HD in 11/03/2017 and then was DC to the [facility] [place], [place]. Unfortunately, she h as had intermittent [...] IJ HD catheter, 11/08/2017, Dr. Nora Leo. No outpatient medications have been marked as taking for the 05/20/19 encounter ([facility] [ Dialysis Clinic suspects that she is not taking her meds, although Ara denies that]. Allergies Allergen Reactions Amoxicillin Other (See Comments) [...] any cigarettes, but additionally, smokes cannabis almost daily. ETOH: denies. Single; she is relatively homeless. Previously lived in her car. Currently is staying wit h her sister who has a masters degree in nursing but is retired. Regardless, she has very f requent absenteeism from the [facility]. FAMILY HISTORY: Father: in his [...] epistaxis, sinusitis, or pharyngitis . Cardiovascular: She admits to marked new onset FRANK, orthopnea, no chest pain or palpitatio ns. Pulmonary: See HPI. GI: She denies nausea vomiting, epigastric pain, [...] depression, or suicidal ideation. PHYSICAL EXAMINATION: BP 200/73 | Pulse 70 | Temp 36.1 C (97 F) (Temporal) | Resp 13 | Ht 1.727 m (5' 8") | Wt 60.6 kg (133 lb 9.6 oz) | SpO2 94% | BMI 20.31 kg/m General: This is a slender, 74 year-old female who is alert and oriented x3, wh o is short of breath after long sentences but in NAD. HEENT: Normocephalic. Pupils are 3 mm / 3 mm and reactive. EOMI. Funduscopic exam was not performed. Posterior pharynx is clear, without injection. Neck: JVP's are 9-10 cm at 45, no thyromegaly. Cardiovascular: Regular rate and rhythm, with (+) S4 no S3, murmur or rub. Lungs: (+) Fine inspiratory rales lower both lungs, no wheezes. Abdominal: Soft, flat, nontender, NABS, no organomegaly, no guarding, no bruit. Extremities: 3+ edema, linear AVF in right upper arm(+) has a pulsatile thrill, no clubbing, cyanos is, or asterixis. Neurological: Nonfocal, nonlateralizing. PCXR: (+) CM , large left pleural effusion with atelectasis and volume loss nearly to the apex of left lung, also with background alveolar, interstitial edema. SpO2: 94 % on 3liters/minute nasal cannula Lab Results Component Value Date NA 133 (L) 05/21/2019 K 5.1 05/21/2019 CL 99 05/21/2019 CO2 25 05/21/2019 BUN 48 (H) 05/21/2019 CREA 7.26 (H) 05/21/2019 GFRNONAA 6 (L) 05/21/2019 GLU 105 05/21/2019 CALCIUM 8.6 (L) 05/21/2019 PHOS 9.0 (HH) 05/21/2019 MG 2.3 05/21/2019 Lab Results Component Value Date WBC 6.9 05/21/2019 HGB 8.9 (L) 05/21/2019 HCT 27.2 (L) 05/21/2019 PLT 256 05/21/2019 MCV 99.3 05/21/2019 NEUPCT 72.5 05/21/2019 LYMPCT 15.8 (L) 05/21/2019 EOSPCT 5.6 (H) 05/21/2019 IMPRESSION 1. Acute pulmonary edema with acute CHF--secondary to volume overload from absenteeism fro m scheduled HD. 2. Hypertensive urgency--I am very suspicious she does not take her oral meds or clonidine TTS, consistently? 3. 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 However, this is hampered by infrequent absenteeism. 4. Anemia 2 to CKD--Hb is below target. 5. Type 2 DM, requiring insulin--good control today. 6. CKD/MBD-- will recheck a iPTH. 7. Hypothyroidism--previously on replacement therapy. 8. Large left pleural effusion--needs diagnostic thoracentesis? Differential diagnosis in cludes transitive effusion from CHF, however she is a smoker and cannot exclude bronchogenic CA or malignant pleural effusion? 9. Recent history of osteomyelitis of E51-M96--Qkqc recheck her ESR, CRP. Also will consi jorge repeat imaging although CT of the chest, today, does show some imaging of that reason? PLAN 1. This AM she had 5-hour Nxstage treatment, QB 350, daily 7 L/hour, BFC779, 2K + with UF 4 kg. 2. We will ask radiology to kindly attempt US guided thoracentesis in a.m. with work-up of fluid including protein, LDH, glucose, cell count, differential, AFB, fungal, bacterial kvng dies and cytology. 3. I strongly reinforced the need for a <1000 cc daily fluid restriction. 4. I had a very evelin, ayzwn-up-mmgko discussion with Ara that she is very high risk fo r CVA given her current practice. 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 I told her I think she may be better served moving [place] to more affordable housing, nearby a local [facility] clinic. She states that she will consider this. 5. GI and DVT prophylaxis is already been ordered by the hospitalist service. Appreciate their help. Thank you for the chance to see this very interesting patient. Will follow the patient kisha arechiga. [facility] CC: [facility], [place], [place]. Nick Jung MD, MPH Mat Brooks MD, [facility], [place] ED, [facility], [place]. [facility], [place] documented in thi s encounter Miscellaneous Notes Plan of Care - Sharon Rosado RN - 05/25/2019 2:15 PM PDTThis CM f/u with patient today reg arding all her discharge planning needs. Let patient know that an OP PT OT referral order was sent to [facility] OP Therapy with c all to them letting them know that patient is being discharged today and that an order has b een faxed. Fax transmission with + fax confirmation placed in ghost chart. CM also faxed the order for patient's PICC care weekly to f# [phone] Peralta to sign off so patient can cont at OP infusions without her need for further IV abx at this time. She will be going home with her IJ PICC in place per request of Dr. Muñoz, who states at she has had this in since March. Fax confirmation with + fax confirmation placed in ghost chart. Reminded patient to be compliant with her HD at [facility]. She states that she drives herself there and back. Her sister will be driving her home today, so reminded her to remind her sister to go to r dialysis treatments and not miss them. This CM also left message with LISA Mock, at [facility] letting her know that patient was d ischarged today and that she is being set up with OP therapies and OP Infusions at [facility]. She will continue her OP HD at [facility] in [place]. Requested that Emili start working on the CHR process for this patient since the nephrologi feels that she is needing this. Electronically signed by: Sharon Rosado RN 05/25/2019 14:37 lan of Care - Gregg Mahajan RN - 05/25/2019 2:21 AM PDTPt. tolerated HD well earlier in tariq. R Fistula with g ood thrill and bruit. Received dilaudid 0.2 mg IV for low back pain during HD. Glucose hs 125. Remains on RA. Continue with 1500 cc fluid restriction. Plan is to DC today. Electr onically signed by Estephania Mahajan, RN at 05/25/2019 2:23 AM PDTPlan of Lorenza Gaines RN - 05/24/2019 5:31 PM PDTPt a/ox4, free from falls, SBA, but did not ambulate toda y. Often tearful and frustrated, but does well with conversation, redirection and encouragem ent. Compliance comes and goes regarding medications. BRINE PURIFIER set her up for shower, but pt did not comply. Currently undergoing dialysis (MWF), VSS, no c/o pain. lan of Sharon Vicente RN - 05/24/2019 4:34 PM PDTThis CM contacted Aleta at [facility] in [place]. She states that patient has been a no show with the last time being there for her HD was on 05/15/19. Let patient know that her d/c is anticipated for tomorrow, pending MD's assessment tomorrow . She states that her appt is on MWF at 1240 and she usually drives herself since she has a car. It only takes 7-10 min patient reports. Aleta confirmed that they are closed for any new clients at this time. Let patient know th at she needs to keep her appts. Emili, [facility], p# [phone], from [facility] called this CM and was segundo lara sure patient had a safe discharge plan, since patient's PCP has changed 3 times already with a new one starting in Jun. Noted in chart that patient's one iv abx was d/cd today and that the vanco is done tomorrow 05/25 on NOV. Patient is still planning on going home at discharge. This CM left message with patient's sister, [place], confirming that they will be able to [place]ring sport her home tomorrow. Left this life underwriter's p# with her. CM to follow. Electronically signed by: Sharon Rosado RN 05/24/2019 17:10 lan of Melanie - Robert Lin OT - 05/24/2019 3:45 PM PDTTherapy Plan of Care Missed Visit Note Patient Information Patient Name: Ara Campos Date of : 1945 Age: 74 y.o. The patient was unable to be seen for today's scheduled visit due to pt unavailable on both attempts: shower in the morning and preparing for dialysis in the afternoon. Plan: reattempt OT treatment as appropriate Electronically signed by: Momo Lin OT, 05/24/2019 16:38 lan of Melanie - Christiana Bustillos PTA - 05/24/2019 11:26 AM PDTFormatting of this note might be different fro m the original. Physical Therapy Plan of Care Treatment Note Summary: Ara has been participating in physical therapy for treatment of impaired mobi lity and difficulty in walking following development of SOB after missing her HD. Pt admitte d w/ acute hypoxia w/ renal insufficiency d/t volume overload, hypotensive urgency and acute metabolic encephalopathy. Emphasis of session included functional mobility with focus on b ed mobility and sitting tolerance. Patient very upset this session due to not being able to go home, initially agreeable to therapy but once up at EOB refused further OOB activity. Liz mullins stated "I don't need this, I can do everything I need to do and I don't need to prove i t to anyone." Patient demonstrates progress towards functional goals as evidenced by contin ued participation in therapy and completion of bed mobility activity. Remaining barriers to discharge and functional limitations [...] Therapy Discharge Recommendations are: Recommended discharge disposition: intermediate facility Post discharge physical therapy recommendation: will benefit from structured setting, ongo ing low intensity therapy Equipment Recommendations: 2 wheeled walker (FWW) Planned Interventions: balance training, gait training, bed mobility training, patient/fam natali education, postural re-education, strengthening, transfer training Recommended Frequency: (5-7x/wk) Patient Status/Goals: Reflects last filed data and may be from multiple contributors. Gait NT - patient refused OOB actvity. Transfers Patient once sitting EOB refused OOB activity - reported "I dont need this, I can do everyt amy I need to and dont need to prove it to anyone." Bed Mobility Patient requires additional time and effort to complete, as well as bed features. No physic al assistance required. Assistive Device: bed rails Scoot/Bridge, Level of Lowber: supervised Supine to Sit, Level of Lowber: stand by assist, verbal cues required Sit to Supine, Level of Lowber: stand by assist Safety Issues: decreased use of arms for pushing/pulling, impaired trunk control for bed mo bility, decreased use of legs for bridging/pushing Impairments: strength decreased, impaired balance, postural control impaired Balance Sitting Balance: Static: normal balance Sitting Balance: Dynamic: good balance Therapeutic Exercise Sitting EOB - focus on upright posture and tolerance. Patient sitting with very flexed post ure. Functional Endurance Fair - patient with limited participation due to upset with not going home today. PT Goal Review Date Most Recent Value STG Review Date 05/27/19 at 05/22/2019 1042 All Bed Mobility Goal Most Recent Value STG Status progressing at 05/24/2019 1126 STG Lowber Level modified independent at 05/22/2019 1042 STG Assistive Device none at 05/22/2019 1042 Vae-Gdfij-Mau Goal Most Recent Value STG Status new at 05/22/2019 1042 STG Lowber Level modified independent at 05/22/2019 1042 STG Assistive Device 2 wheeled walker (FWW) at 05/22/2019 1042 Gait Goal Most Recent Value STG Status new at 05/22/2019 1042 STG Lowber Level modified independent at 05/22/2019 1042 STG Assistive Device 2 wheeled walker (FWW) at 05/22/2019 1042 STG Distance (feet) 300 at 05/22/2019 1042 Electronically signed by: Christiana Alba PTA, 05/24/2019 12:22 edation Documentation - Sheri Alvarado RN - 05/23/2019 4:20 PM PDTBy: Licensed provider Mallampati: III (base of uvula and soft palate) ASA Score: ASA 2 - mild systemic disease Sedation Plan: Moderate lan of Melanie - Wisam Terrell PTA - 05/23/2019 3:24 PM PDTTherapy Plan of Care Missed Visit Note Patient Information Patient Name: Ara Campos Date of : 1945 Age: 74 y.o. The patient was unable to be seen for today's scheduled visit due to pt stating she would l cristina to trial later this PM d/t pt family into visit, second attempt pt prepping to head down to MRI. Plan: Pt to be seen as next scheduled visit. Electronically signed by: Wisam Wetzel PTA, 05/23/2019 15:26 lan of Melanie - Mira León RN - 05/23/2019 1 1:18 AM PDTPt asking for medication to help with anxiety during MRI. Dr Muñoz notified an d changed order to conscious sedation MRI, pt made NPO for procedure. R chest central line p atent. Pt voiding in toilet refuses to leave measuring device in toilet.Electronically reed d by Mira León RN at 05/23/2019 1:37 PM PDTPlan of [facility] - Kimberly Lanza OT Stud ent - 05/23/2019 10:24 AM PDTTherapy Plan of Care Missed Visit Note Patient Information Patient Name: Ara Campos Date of : 1945 Age: 74 y.o. The patient was unable to be seen for today's scheduled visit due to patient upset about br eakfast upon arrival, asking therapies to come back after finished with coffee. At second at tempt, patient was upset about not being able to eat prior to imaging. Education given about dietary restrictions, OT and RN in room attempting to problem solve with patient. Plan: Attempt therapy third time this PM as schedule allows Electronically signed by: Kimberly Lanza OT Student, 05/23/2019 10:24 Associated attestation - Daina Dumont OT - 05/23/2019 11:11 AM PDTPortions of the avelina luation data keyer were performed and entered by Kimberly Lanza, Occupational Therapy Stud ent, under the direct supervision of Clinical Instructing Lisjeremyed Occupational Therapist. I have reviewed this documentation and agree w/ the treatment provided. Adequate supervisio n was given and correct CPT codes have been entered. Electronically signed by: Daina Dumont OT 05/23/2019 11:11 Plan of Care - Remedios Angelo RN - 05/23/2019 7:35 AM PDTD has had no falls or injuries th is shift. Very cranky with morning cares, but did comply. Medicated once for pain 8/10 in left ribs with good relief of pain. lan of Care - Mira León RN - 05/22/2019 6:02 PM [id number] Received from [facility]. A&O. R chest PICC intact. Pt remains on fluid restriction. lan of Care - Pita Alexander RN - 05/22/2019 11: 21 AM PDTDischarge Planning: CM to patient room for supportive visit. Patient alert and oriented x 3 and resting comfortably in bed. Patient's son and also her sister [place] ([phone]) present and suppo rtive at bedside. CM verified that patient sees [facility] for primary care, however they current ly do not have a provider so she has been utilizing Dr. Muñoz for any needs. Patient is an ESRD patient who goes to outpatient hemodialysis M,W,F at the [facility] in [place]. Options for discharge discussed. PT/OT are recommending SNF. Patient endorses that s he has been to [place] in the past and is adamant that she not return there. CM discuss ed options for local SNF's in [place]. Patient states she "will have to think about bettye t" and did not zakiya permission for CM to send referrals. Patient does not own her own home , but alternates between staying with her sisters or her son so [facility]. Patient and her sister came up with idea for outpatient therapies through [facility] at the [facility] in [place]. That way the patient could go to set appointments regard less of where she is staying. CM left sticky note for provider to order. Patient denies any additional questions, concerns, or needs regarding anticipated plan to return home with family in [place] when medically stable. Patient's son or sister shai kearney provide transportation and will be available to assist as needed after discharge. Disposition: Plan A: Home with family support and chronic outpatient HD, and outpatient therapies through [facility] in [place]. Vs Plan B: TBD CM to continue to follow and re-visit closer to time to discharge to see if patient will ag ree to SNF. If not, assist with order for outpatient therapies. Electronically signed by: Pita Alexander RN 05/22/2019 11:26 lan of Care - Leila Badillo, PT - 05/22/2019 10:10 AM PDTFormatting of this note might be different from the o katharineinal. Physical Therapy Plan of Care Initial Evaluation, Treatment Note Summary: Ara presents to physical therapy with impaired mobility and difficulty in [place] following development of SOB after missing her HD. Pt admitted w/ acute hypoxia w/ wendie l insufficiency d/t volume overload, hypotensive urgency and acute metabolic encephalopathy. Objective exam reveals impairments with aerobic capacity/endurance, arousal, attention, an d cognition, ergonomics and body mechanics, functional endurance/activity tolerance, gait, l ocomotion, and balance, muscle performance, posture, ventilation and respiration/gas exchang e. Ara is cooperative w/ therapy services although verbalizes some frustration about her current situation and is unhappy about her dietary restrictions. She is reluctant to answer questions about her personal situation although states she doesn 't really have any home and moves around, staying w/ various family members. She is unable to meet her basic needs at this time and will likely require placement for on going therapy services prior to regaining sufficient functional independence to care for her self. Barriers to discharge and functional limitations include decreased insight into safety and deficits, decreased functional activity tolerance, decreased bed mobility, decreased functio nal transfers, decreased functional gait distance, decreased gait velocity, unknown living s ituation, not yet able to mobilize at level safe for home discharge, [facility] indicating signif icant impairment with basic functional mobility and medical status. Ara will benefit from [...] wheeled walker (FWW) Prior Functional Level Comment: Pt reports being relatively independnet w/ all functional m obility including driving, Pt states she has been provided w/ a FWW although when she left t he SNF she left it there. Potential available assistance at discharge: unknown Living Environment/Accessibility: Lives With: sibling(s) Living Arrangements: house, other (see comments) Home Accessibility: no concerns Number of Stairs to Enter Home: 0 Number of Stairs Within Home: 0 Financial Concerns: other (see comments)(concerned about hospital costs) Transportation Available: family or friend will provide Living Environment Comment: Pt reports not having he own place, moving between sister's and brother's home Patient/Family?s Goals: I want something to eat Rehabilitation potential: good, to achieve stated therapy goals Physical Therapy Discharge Recommendations are: Recommended discharge disposition: intermediate facility Post discharge physical therapy recommendation: will benefit from structured setting, ongo ing low intensity therapy Equipment Recommendations: 2 wheeled walker (FWW) Planned Interventions: balance training, gait training, bed mobility training, patient/fam natali education, postural re-education, strengthening, transfer training Recommended Frequency: (5-7x/wk) Patient Status/Goals: Reflects last filed data and may be from multiple contributors. Gait Cuing for posture w/ pt exhibiting very flexed trunk and relying heavily on FWW for support Level of Lowber: contact guard assist, verbal cues required Assistive Device: 2 wheeled walker (FWW) Distance (feet): 120 Impairments: impaired balance, pain, strength decreased, postural control impaired, motor c ontrol impaired Transfers cuing for sequencing and safety w/ fair return demo Sit-Stand, Level of Lowber: contact guard assist, verbal cues required Stand-Sit, Level of Lowber: stand by assist, verbal cues required Qcs-Evnvy-Gps, Assistive Device: 2 wheeled walker (FWW) Safety Issues: balance decreased during turns, other (see comments), stands too far from as sistive device Impairments: impaired balance, coordination impaired, postural control impaired, motor cont rol impaired, strength decreased, pain Bed Mobility cuing for sequencing w/ pt relying on bed rail for support, no additional assist required b ut extra time and effort needed Assistive Device: bed rails Scoot/Bridge, Level of Lowber: supervised Supine to Sit, Level of Lowber: stand by assist, verbal cues required Sit to Supine, Level of Lowber: stand by assist Safety Issues: decreased use of arms for pushing/pulling, impaired trunk control for bed mo bility, decreased use of legs for bridging/pushing Impairments: strength decreased, impaired balance, postural control impaired Balance Sitting Balance: Static: normal balance Sitting Balance: Dynamic: good balance Standing Balance: Static: fair balance Standing Balance: Dynamic: (fair-) [facility] BASIC MOBILITY Turning from your back to your side while in a flat bed without using bedrails?: min assist , CGA, SBA, Supervision/a little help Moving from lying on your back to sitting on the side of a flat bed without using bedrails? : min assist, CGA, SBA, Supervision/a little help Standing up from a chair using your arms (e.g. wheelchair, or bedside chair)?: min assist, CGA, SBA, Supervision/a little help Moving to and from a bed to a chair (including a wheelchair)?: min assist, CGA, SBA, Superv ision/a little help To walk in a hospital room?: min assist, CGA, SBA, Supervision/a little of help Climbing 3-5 steps with a railing?: mod or max assist/a lot of help(CJ) Total Basic Mobility Six Click AM-PAC: 17 Completed the [facility] Activity Measure for Post Acute Care (AM-PAC) "6 Clicks" Ba sic Mobility Inpatient Short Form. This version of the AM-PAC is an assessment tool used to measure a person's level of disability in performing basic mobility tasks. Ara's score indicates a performance of 50.57% impairment in the functioning of basic mobility. [...] 14 IRF = 13.6 LTAC = 11.5 Functional Endurance fair w/ pt tolerating more activity compared with admission level although continues to rep ort fatigue ROM ROM Testing Results: no range of motion deficits identified Strength L LE Strength: grossly 4/5 t/o R LE Strength: grossly 4/5 t/o Trunk strength: grossly 4-/5 t/o PT Goal Review Date Most Recent Value STG Review Date 05/27/19 at 05/22/2019 1042 All Bed Mobility Goal Most Recent Value STG Status new at 05/22/2019 1042 STG Lowber Level modified independent at 05/22/2019 1042 STG Assistive Device none at 05/22/2019 1042 Wqm-Apsfv-Niy Goal Most Recent Value STG Status new at 05/22/2019 1042 STG Lowber Level modified independent at 05/22/2019 1042 STG Assistive Device 2 wheeled walker (FWW) at 05/22/2019 1042 Gait Goal Most Recent Value STG Status new at 05/22/2019 1042 STG Lowber Level modified independent at 05/22/2019 1042 STG Assistive Device 2 wheeled walker (FWW) at 05/22/2019 1042 STG Distance (feet) 300 at 05/22/2019 1042 Electronically signed by: Leila Levy, PT, 05/22/2019 10:49 lan of Nan Worthington RN - 05/22/2019 4:54 AM PDTPatient alert and oriented x 4, vital signs stable on 3 L of O2 via [place], no shortn ess of breath reported. Patient pleasant and cooperative with cares while sisters were visit ing. She frequently requested to have something for sleep, prn melatonin helpful and patient was able to sleep in short amounts tonight. She gets up to void in the bathroom and has ref used to void in the hat to measure urine output. She remains free from falls at this time. E lectronically signed by Nan Jackson RN at 05/22/2019 4:59 AM PDTPlan of Ashlie Alfonso RN - 05/21/2019 6:44 PM PDTPatient has been awake and alert all shift. VSS on 3L O2 via [place] for exception of HTN. SBP 180-200s, Labetolol IV helps, started oral ant ihypertensives after dialysis run completed. pt asyptomatic. Denies pain, repositions self i n bed. CGA to bathroom. HD run successful with UF output of 4L. Poor appetite, encouraged sn acks, pt declined snacks and supplemental shakes. Pt calls appropriately, is emotional, posi tive reinforcement helpful. Plan for Thoracentesis tomorrow. lan of Kimberly Dutton, OT Student - 05/21/2019 4:40 PM PDT Occupational Therapy Plan of Care Initial Evaluation, Treatment Note Summary: Ara presents to occupational therapy with decreased independence and safety i n ADLs, IADLs and functional mobility who presents with shortness of breath after missing di alysis. History of end-stage renal disease (MWF), hypertension, kxg-qcpyyzu-mpjajcpom diabet es, hypothyroidism, anemia of chronic disease, recent admission for T11-T12 osteomyelitis -03/31 with 6-week duration of vancomycin/cefepime (per H&P).. Objective exam reveals impa irments with aerobic capacity/endurance, arousal, attention, and cognition, cognitive, ergon omics and body mechanics, functional endurance/activity tolerance, gait, locomotion, and bal ance, posture, social dynamics, ventilation and respiration/gas exchange. Emphasis of sessio n included bed mobility, sit <> stand transfer, grooming and functional mobility in room. Patient demonstrating frustration, perseverating on renal diet, with overall agitation thro ughout session. Therapist provided education on renal diet and importance of ADLs and functi onal mobility while in the hospital. Discharge recommendation TBD as more information is gat hered about current living situation (patient chart indicates patient lives alone, today liz mullins stated she lives with sister) and overall health moving forward. Will continue to monit or and update plan of care and discharge disposition as able. Barriers to discharge and functional limitations include decreased insight into safety and deficits, decreased functional activity tolerance, decreased bed mobility, decreased functio nal transfers, decreased ability to perform ADLs, decreased ability to perform IADLs, decrea sed ability to perform medication management, lives alone, not yet able to mobilize at level [...] Currently Used at Home: 2 wheeled walker (FWW), cane, straight, single point Prior Functional Level Comment: Patient is poor historian, refuses to answer some questions , stating "I can do everything by myself", reports not using mobility equipment Potential available assistance at discharge: Living Environment/Accessibility: Lives With: alone Living Arrangements: house Home Accessibility: no concerns Number of Stairs to Enter Home: (Refuses to answer questions at this time) Number of Stairs Within Home: 0 Financial Concerns: other (see comments)(Concerned about hospital costs) Transportation Available: (Refuses to answer questions at this time) Living Environment Comment: States lives alone Patient/Family s Goals: pt did not state therapy goals Rehabilitation potential: fair, will monitor progress closely Occupational Therapy Discharge Recommendations are: Recommended discharge disposition: other (see comments)(TBD - pt inconsistent about questi ons concerning living environment) Post discharge occupational therapy recommendation: other (see comment)(TBD - pending prog ress and post d/c plan) Equipment Recommendations: (TBD) Planned Interventions:ADL retraining, IADL retraining, balance training, functional enduran ce training, patient/family education, strengthening, stretching, transfer training Recommended Frequency: 4 times/wk Patient Status/Goals: Reflects last filed data and may be from multiple contributors. ADLs Pt refusing many ADLs this session d/t "no one offering me anything all day" and perseverat ion on diet. After encouragement, pt brushed teeth while standing at sink with SBA, set up and verbal cu es for safety. Grooming, Level of Lowber: stand by assist, verbal cues required, set up required Assistive Device: none Grooming Assess/Train, Position: standing Grooming Impairments: strength decreased, impaired functional endurance/activity tolerance, impaired cognition Functional Endurance poor; pt refusing to complete ADL tasks this session (other than brushing teeth) Cognitive Pt paticipatory in therapy session with encouragement, upset about renal diet, generally ag itated this PM Mood/Behavior: flat affect, agitated Orientation: disoriented to, situation Bed Mobility Pt needing supervision to SBA for bed mobility this session, utilizing HOB elevation and be d rails. Pt needing to rest at EOB before completing sit <>stand t/f. Assistive Device: bed rails, HOB elevated Scoot/Bridge, Level of Lowber: supervised Supine to Sit, Level of Lowber: stand by assist Sit to Supine, Level of Lowber: stand by assist Safety Issues: cognitive deficits limit understanding Impairments: decreased flexibility, strength decreased, impaired balance Transfers Pt refusing to use FWW this session stating "that's not mine". Education given on mobility devices that can be used while in hospital in case of weakness. Pt stated "I don't need it". CGA initially for sit to stand, progressing to SBA. Pt CGA for functional mobility in room d/t impulsivity in walking quickly while still attached to monitors. Sit-Stand, Level of Lowber: contact guard assist, verbal cues required Stand-Sit, Level of Lowber: stand by assist, verbal cues required Jpw-Hozvj-Diq, Assistive Device: none(pt refused using FWW) Safety Issues: balance decreased during turns, other (see comments)(cognition) Impairments: strength decreased, impaired balance, other (see comments)(cognition) ROM L UE ROM: grossly WFL R UE ROM: grossly WFL Strength L UE Strength: grossly WFL R UE Strength: grossly WFL OT Goal Review Date Most Recent Value STG Review Date 05/28/19 at 05/21/2019 1640 LB Dressing Goal Most Recent Value STG Status new at 05/21/2019 1640 STG Lowber Level modified independent at 05/21/2019 1640 Toilet Transfer Goal Most Recent Value STG Status new at 05/21/2019 1640 STG Lowber Level modified independent at 05/21/2019 1640 Tub/Shower Transfer Goal Most Recent Value Tub/Shower Type tub/shower combo at 05/21/2019 1640 STG Status new at 05/21/2019 1640 STG Lowber Level modified independent at 05/21/2019 1640 Electronically signed by: Kimberly Lanza OT Student, 05/21/2019 17:20 Associated attestation - Daina Dumont OT - 05/21/2019 5:54 PM PDTPortions of the avelina luation data keyer were performed and entered by Kimberly Lanza, Occupational Therapy Stud ent, under the direct supervision of Clinical Instructing Lisatrium healthed Occupational Therapist. I have reviewed this documentation and agree w/ the treatment provided. Adequate supervisio n was given and correct CPT codes have been entered. Electronically signed by: Daina Dumont OT 05/21/2019 17:54 eICU Note - Ashlie Navarro RN - 05/21/2019 4:08 PM PDT5 hour HD run completed w/o ut complications. Right arm Fistula bruit/thrill strong. VSS with exception of HTN, 2 doses of labetolol given with little effect, pt asymptomatic. Gauze dressing c/d/i, no swelling, n o signs of infection noted. UF goal reached. Total UF was 4107 mls. lan of Melanie - Leila Levy, PT - 04/2019 1:46 PM PDTTherapy Plan of Care Missed Visit Note Patient Information Patient Name: Ara Campos Date of : 1945 Age: 74 y.o. The patient was unable to be seen for today's scheduled visit due to HD. Nursing stated she would be completed in 2 hrs although it was likely Ms Campos would be very fatigued from her procedure. Plan: PT evaluation to be completed tomorrow. Electronically signed by: Leila Levy, PT, 05/21/2019 13:46 lan of Care - Savita Lang Speech Pathologist - 05/21/2019 12:36 PM PDT Speech Therapy Plan of Care Missed Visit (patient declined), Discharge Note Summary: Pt stated that she swallows without any difficulty and doesn't need speech thera py. Dr Muñoz came into the pt's room and stated that he doesn't feel that she needs spee ch therapy and will discharge the ST order. No further ST at this time. Electronically signed by: Savita Lang Speech Pathologist, 05/21/2019 12:36 lan of Care - Tabatha Martinez, RN - 05/21/2019 11:15 AM PDT Attempted to visit with Ms. Campos, but she was sleeping and getting HD. CM will return this afternoon to visit after her HD. Addendum: 1530: Visited with Ms. Campos at the bedside to discuss her discharge plans. Ms. Campos was upset at the time of the visit because of her diet order. She stated they didn't allow her to eat, so this CM offered to return at a later time, but she said she cou ld visit at the time. However, her answers were very limited due to her being upset. She stated she stays with her sisters, alternates nightly between two sisters. One of the sister's home is one level with no steps to enter. She states she is independent with her ADL's, she does not use any DME, oxygen or CPAP. e states she was at [place] a while ago, she cannot recall how long ago it was. When asked about her PCP she stated she goes to the [facility] and then declined to answer any more questions. CM to continue to follow and assess for any discharge needs. Plan: TBD Electronically signed by: Tabatha Acosta RN 05/21/2019 18:31 lan of Melanie - Leila Levy, PT - 05/21/2019 9:01 AM PDTTherapy Plan of Care Missed Visit Note Patient Information Patient Name: Ara Campos Date of : 1945 Age: 74 y.o. The patient was unable to be seen for today's scheduled visit due to starting HD. Nursing c onsult and chart review completed. Plan: Will attempt pm following completion of HD Electronically signed by: Leila Levy PT, 05/21/2019 9:02 eICU Note - Ashlie Navarro RN - 05/21/2019 8:30 AM [id number] today- Oral meds held until after Hemodialysis per Dr. Muñoz. SBP 190s. Monitoring. l an of Melanie - Nan Jackson RN - 05/21/2019 6:13 AM PDTPatient was somnolent this tariq kacy, oriented to self and some of place. She has been able to stay awake for longer this mo rning. Her vital signs have been stable on 4 L of O2 via [place]. Labetalol helpful for high bloo d pressures. She states feeling short of breath. Lung sounds crackles throughout. She denies any pain and refused to answer the questions of if having any numbness or tingling. She has ambulated to bathroom to void very small amount of urine. 240 mg Lasix given IV tonight. Aw aiting dialysis later today. She has a right upper arm fistula and a Right tunneled IJ centr al line. Central line dressing changed tonight. She remains free from falls at this time. El ectronically signed by Nan Jackson RN at 05/21/2019 6:17 AM PDTdocumented in this e ncounter Plan of Treatment [...] | | | | | | dialysis ([facility]) | | | | | | Essential [...] [address] | [place] | [phone] | | [facility] | | [address] | | | - LABORATORY | | [...] [address] | [place] | [phone] | | [facility] | | [address] | | | - LABORATORY | | [...] | 11 (L)Comment: | >=60 | [facility] | | | | GLOMERULAR FILTRATION | mL/min/1.73m2 | [facility] | | | INDONESIAN | RATE,ESTIMATED | | MEDICAL | | | | mL/min/1.66v0Ozgp than | | CENTER - | | [...] [address] | [place] | [phone] | | [facility] | | [address] | | | - LABORATORY | | [...] | | Last Dose | | | [facility] | | | [...] + | [facility] | [address] | [place] | [phone] | | [facility] | | [address] | | | - LABORATORY | | [...] + | [facility] | [address] | [place] | [phone] | | [facility] | | [address] | | | - LABORATORY | | [...] [address] | [place] | [phone] | | [facility] | | [address] | | | - LABORATORY | | [...] + | [facility] | [address] | [place] | [phone] | | [facility] | | [address] | | | - LABORATORY | | [...] | | | | | mmol/L | [facility] | | | | [...] mL/min/1.73m2 | [facility] | | | INDONESIAN | RATE,ESTIMATED | | MEDICAL | | | | mL/min/1.39g8Lbkn than | | CENTER - | | [...] 8.2 (L) | 8.7 - 10.4 | [facility] | | | | | [...] [address] | [place] | [phone] | | [facility] | | [address] | | | - LABORATORY | | | | + + + + + CBC with Differential (05/24/2019 6:54 AM PDT) + + + + + + | Component | Value | Ref Range | Performed | Pathologist | | | | | At | Signature | + + + + + + | White Blood | 4.6 | 4.0 - 11.0 K/uL | [facility] | | | Cells | | | [facility] | | | | | | MEDICAL | | | | | | CENTER - | | | | | | LABORATORY | | + + + + + + | Red Blood | 2.66 (L) | 3.70 - 5.20 [...] [address] | [place] | [phone] | | [facility] | | [address] | | | - LABORATORY | | [...] + | [facility] | [address] | [place] | [phone] | | [facility] | | [address] | | | [...] [address] | [place] | [phone] | | [facility] | | [address] | | | - LABORATORY | | [...] + | [facility] | [address] | [place] | [phone] | | [facility] | | [address] | | | - LABORATORY | | [...] + | [facility] | [address] | [place] | [phone] | | [facility] | | [address] | | | - LABORATORY | | [...] | mL/min/1.73m2 | [facility] | | | INDONESIAN | RATE,ESTIMATED | | MEDICAL | | | | mL/min/1.64e1Gadk than | | CENTER - | | [...] | [facility] [address] [facility] | [address] | [place] | [phone] | | [facility] | | [address] | | | - LABORATORY | | | | + + + + + CBC with Differential (05/23/2019 5:10 AM PDT) + + + + + + | Component | Value | Ref Range | Performed | Pathologist | | | | | At | Signature | + + + + + + | White Blood | 4.8 | 4.0 - 11.0 K/uL | [facility] | | | Cells | | | [facility] | | | | | | MEDICAL | | | | | | CENTER - | | | | | | LABORATORY | | + + + + + + | Red Blood | 2.69 (L) | 3.70 - 5.20 [...] [address] | [place] | [phone] | | [facility] | | [address] | | | - LABORATORY | | [...] + | [facility] | [address] | [place] | [phone] | | [facility] | | [address] | | | - LABORATORY | | [...] ST. | [address] | [place], [place] | [phone] | | [facility] | | [address] | | | - LABORATORY | | [...] + + + + | Lactate | 117 | U/L | [facility] | | | Dehydrogena | | | [facility] | | | se, Body | | [...] [address] | [place] | [phone] | | [facility] | | [address] | | | - LABORATORY | | [...] + + | Performed at: 02 - [facility] [address] [facility], | REFERENCE LAB | | [place], [place] [id number] [place] [employer] Operator Helper: Violette Mcconnell MD, Phone: | [facility] | | [phone] | | + + + + + + + + | Performing | Address | City/State/Zipcode | Phone Number | | Organization | | | | + + + + + | REFERENCE LAB | [address] | [place], [place] | [phone] | | [facility] | Drive [facility] | [address] | | + + + + + [...] + | Performed at: 01 - [address] [place] [address], | REFERENCE LAB | | [place], [place] [id number] [employer] Operator Helper: Ernie Lee MD, Phone: | [facility] | | [phone] | | + + + + + + + + | Performing | Address | City/State/Zipcode | Phone Number | | Organization | | | | + + + + + | REFERENCE LAB | [address] | [place], [place] | [phone] | | [facility] | [address] | [address] | | + + + + + [...] [address] | [place] | [phone] | | [facility] | | [address] | | | - LABORATORY | | [...] ST. | [address] | [place] | [phone] | | [facility] | | [address] | | | - LABORATORY | | [...] + + + | Performed at: - [place] [address], | REFERENCE LAB | | [place], [place] [id number] [place] Operator Helper: Ernie Lee MD, Phone: | [facility] | | [phone] Performed at: - [address] | | | [place], [place] [id number] [employer] Operator Helper: Violette Mcconnell MD, | | | Phone: [phone] | | + + + + + + + + | Performing | Address | City/State/Zipcode | Phone Number | | Organization | | | | + + + + + | REFERENCE LAB | [address] | [place], [place] | [phone] | | [facility] | [address] | [address] | | + + + + + [...] + + + + | Protein, | 3.1 | g/dL | [facility] | | | Body Fluid | | | [facility] | | [...] [address] | [place] | [phone] | | [facility] | | [address] | | | [...] | | Source | | | [facility] | | | | | | MEDICAL | | | | | | CENTER - | | | | | | LABORATORY | | + + + + + + | Color, Body | Yellow (A) | (none) | [facility] | | | Fluid | | | [facility] | | | | | | MEDICAL | | | | | | CENTER - | | | | | | LABORATORY | | + + + + + + | Appearance, | Clear | Clear | [facility] | | | Body Fluid | | | [facility] | | | | | | MEDICAL | | | | | | CENTER - | | | | | | LABORATORY | | + + + + + + | Nucleated | 110 | 0 - 150 | [facility] | | | Cells, Body | | cells/uL | [facility] | | | Fluid | | | MEDICAL | | | | | | CENTER - | | | | | | LABORATORY | | + + + + + + | Red Blood | <2000 | Reference Range | [facility] | | | Cells, Body | | Not | [facility] | | | Fluid | | Established [...] + + + + | % | 10.9 | % | [facility] | | | Polymorphon | | | [facility] | | | uclear | | | [...] [address] | [place] | [phone] | | [facility] | | [address] | | | - LABORATORY | | [...] [address] | [place] | [phone] | | [facility] | | [address] | | | - LABORATORY | | [...] ST. | [address] | [place], [place] | [phone] | | [facility] | | [address] | | | - LABORATORY | | [...] mL/min/1.73m2 | [facility] | | | INDONESIAN | RATE,ESTIMATED | | MEDICAL | | | | mL/min/1.08p8Iaaw than | | CENTER - | | [...] [address] | [place] | [phone] | | [facility] | | [address] | | | - LABORATORY | | | | + + + + + CBC with Differential (05/22/2019 3:12 AM PDT) + + + + + + | Component | Value | Ref Range | Performed | Pathologist | | | | | At | Signature | + + + + + + | White Blood | 5.6 | 4.0 - 11.0 K/uL | [facility] | | | Cells | | | [facility] | | | | | | MEDICAL | | | | | | CENTER - | | | | | | LABORATORY | | + + + + + + | Red Blood | 2.78 (L) | 3.70 - 5.20 [...] [address] | [place] | [phone] | | [facility] | | [address] | | | - LABORATORY | | [...] + | [facility] | [address] | [place] | [phone] | | [facility] | | [address] | | | - LABORATORY | | [...] [address] | [place] | [phone] | | [facility] | | [address] | | | - LABORATORY | | | | + + + + + POC Glucose (05/21/2019 12:12 PM PDT) + +-------+ + + + | Component | Value | Ref Range | Performed | Pathologist | | | | | At | Signature | + +-------+ + + + | Glucose, | 90 | 70 - 109 mg/dL | B[facility] [...] [address] | [place] | [phone] | | [facility] | | [address] | | | - LABORATORY | | [...] + | [facility] | [address] | [place] | [phone] | | [facility] | | [address] | | | - LABORATORY | | | | + + + + + Sedimentation Rate (05/21/2019 4:15 AM PDT) + +--------+ + + + | Component | Value | Ref Range | Performed | Pathologist | | | | | At | Signature | + +--------+ + + + | Erythrocyte | 48 (H) | <30 mm/hr | [facility] | | | | | | STMarianela NERISSA | | | Sedimentati | | [...] [address] | [place] | [phone] | | [facility] | | [address] | | | - LABORATORY | | | | + + + + + C-Reactive Protein (05/21/2019 4:15 AM PDT) + + + + + + | Component | Value | Ref Range | Performed | Pathologist | | | | | At | Signature | + + + + + + | CRP | 51.80 (H) | <10.00 mg/L | [facility] | | | [...] ST. | [address] | [place], [place] | [phone] | | [facility] | | [address] | | | - LABORATORY | | [...] 7.26 (H) | 0.55 - 1.02 | [facility] | | | | | mg/dL | [...] mL/min/1.73m2 | [facility] | | | INDONESIAN | RATE,ESTIMATED | | MEDICAL | | | | mL/min/1.38t2Gbaz than | | CENTER - | | [...] | Critical Result called | | [facility] | | | | to and [...] [address] | [place] | [phone] | | [facility] | | [address] | | | - LABORATORY | | [...] + | [facility] | [address] | [place] | [phone] | | [facility] | | [address] | | | - LABORATORY | | [...] [address] | [place] | [phone] | | [facility] | | [address] | | | [...] | | | | | | Marianela [facility] | | | | [...] + | [facility] | [address] | [place] | [phone] | | [facility] | | [address] | | | - LABORATORY | | | | + + + + + CBC with Differential (05/21/2019 4:15 AM PDT) + + + + + + | Component | Value | Ref Range | Performed | Pathologist | | | | | At | Signature | + + + + + + | White Blood | 6.9 | 4.0 - 11.0 K/uL | [facility] | | | Cells | | | [facility] | | | | | | MEDICAL | | | | | | CENTER - | | | | | | LABORATORY | | + + + + + + | Red Blood | 2.74 (L) | 3.70 - 5.20 [...] | Basophils | | K/uL | [facility] | | | | [...] [address] | [place] | [phone] | | [facility] | | [address] | | | - LABORATORY | | [...] | this study [facility] on | | | May 21, 2019 at 0200 hours. Dictated and Signed by: Arun | | [...] PHYSICIAN: Gopi Muñoz MD PATIENT NAME: | [place] PATH[place] | | MAYKEL CAMPOSA Tony GENDER: Mami : 1945 | INCYTE | [...] preparation was | | | performed by [facility] [id number] [facility] | | | [place] [address] and [place] [address] [facility] | | | [place] [address]. Professional interpretation was performed | | | by [facility] - [facility] - [address] [facility] | | | [place] [address] (Cutter Tender: Alen Simpson, | | | .; IA#:[id number]).8 Diagnostician: Darcie López M.S., | | | KEELY(ASCP), [facility] Chemistry Associate Diagnostician: Alen Kearney | | | Calvin [...] +--------+ + + + | Erythrocyte | 52 (H) | <30 mm/hr | [facility] | | | | | | [facility] NERISSA | | | Sedimentati | | [...] + | [facility] | [address] | [place] | [phone] | | [facility] | | [address] | | | - LABORATORY | | [...] Dictated and Signed by: Arun Wang | Felipe Hodge MD Electronically signed: 05/21/2019 5:53 AM [...] [address] | [place] | [phone] | | [facility] | | [address] | | | - LABORATORY | | | | + + + + + C-Reactive Protein (05/20/2019 9:11 PM PDT) + + + + + + | Component | Value | Ref Range | Performed | Pathologist | | | | | At | Signature | + + + + + + | CRP | 51.20 (H) | <10.00 mg/L | [facility] [...] [address] | [place] | [phone] | | [facility] | | [address] | | | - LABORATORY | | | | + + + + + Vitamin B-12 (05/20/2019 9:11 PM PDT) + + + + + + | Component | Value | Ref Range | Performed | Pathologist | | | | | At | Signature | + + + + + + | VITAMIN | 564Comment: DEFICIENT: | 156 - 672 pg/mL | [facility] | | | B-12 | <145 | [...] [address] | [place] | [phone] | | [facility] | | [address] | | | - LABORATORY | | [...] | | | | | uIU/mL | NERISSA | | | | | [...] [address] | [place] | [phone] | | [facility] | | [address] | | | - LABORATORY | | [...] St | [place] | | | [facility] | | [address] | | | - BLOOD BANK | [...] | | | | | | [employer] | | | | | [...] [address] | [place] | [phone] | | [facility] | | [address] | | | - LABORATORY | | | | + + + + + Phosphorus (05/20/2019 8:51 PM PDT) + + + + + + | Component | Value | Ref Range | Performed | Pathologist | | | | | At | Signature | + + + + + + | Phosphorus | 8.8 ()Comment: | 2.4 - 5.1 mg/dL | [facility] | | | | Critical Result called | | Marianela [facility]ULTANI | | | | to and [...] [address] | [place] | [phone] | | [facility] | | [address] | | | - LABORATORY | | [...] | | | | | | [facility] | | | | [...] + | [facility] | [address] | [place] | [phone] | | [facility] | | [address] | | | - LABORATORY | | | | + + + + + B Type Natriuretic Peptide (05/20/2019 8:51 PM PDT) + + + + + + | Component | Value | Ref Range | Performed | Pathologist | | | | | At | Signature | + + + + + + | BNP | >5000 (H) | <100 pg/mL | [facility] | | | [...] [address] | [place] | [phone] | | [facility] | | [address] | | | - LABORATORY | | [...] | | Direct | | mg/dl | STMarianela NERISSA | | | | [...] [address] | [place] | [phone] | | [facility] | | [address] | | | - LABORATORY | | [...] 7.11 (H) | 0.55 - 1.02 | B[facility] [...] mL/min/1.73m2 | [facility] | | | INDONESIAN | RATE,ESTIMATED | | MEDICAL | | | | mL/min/1.84d8Nbsl than | | CENTER - | | [...] + | [facility] | [address] | [place] | [phone] | | [facility] | | [address] | | | - LABORATORY | | [...] + | [facility] | [address] | [place] | [phone] | | [facility] | | [address] | | | - LABORATORY | | [...] + | [facility] | [address] | [place] | [phone] | | [facility] | | [address] | | | - LABORATORY | | [...] | | | 50 mg, Oral, ONCE, 05/21/19 at | | 19 7:55 | [...] 250 mL IVPB 1,250 | | 19 5:39 | | mL/hr [...] | | | | 60 Minutes, ONCE, [facility] 05/25/19 at | | | | | | | 0400, For 1 dose, Activate system | | | | | | | and mix before use., | | | | | | | Indications: Osteomyelitis | | | | | | + +---------+ +--------+-------+---+ +---+---+ | | | +---+---+ documented in this encounter
--- OUTSIDE RECORDS SUMMARY | ~2020-03-23 | XMS | Encounter Summary ---
Demographics + + + | Address | [address] | | | [place] [address] | + + + | Home Phone [...] | Author | [facility] | | | and [place]it[place] | + + + | Organization | [facility] | | | and [place] | + + + | Address | Unknown | + + + | Phone | Unavailable | + + + Support + + + + + | Name | Relationship | Address | Phone | + + + + + | [place] T[place] | [place] | [address] | | | | | [place], [place] | | | | | [address] | | + + + + + [...] Providers + +------+ + | Care Marketing Administrative Assistant Name | Role | Phone | + +------+ + PCP | Unavailable | + +------+ + Reason for Visit + +--------+ + | Reason | Onset | Comments | | | Date | | + +--------+ + | Medication Refill | 01/30/ | | | | 2019 | | + +--------+ + Encounter Details +--------+--------+ + + + | Date | Type | Department | Care Team | Description | +--------+--------+ + + + | 0520/ | Refill | [facility] [place] | Scott Koroma, | Medication Refill | | 2019 | | ORTHOPEDIC SURGERY | MD [address] | | | | | [address] [place] | [place], [place] | | | | | [place] | [address] | | | | | [address] | | | | | | [phone] | | | +--------+--------+ + + + [...] this encounter Miscellaneous Notes Telephone Encounter - Robina Redding - 01/31/2019 10:15 AM PDTPATIENT PICKED UP PRESC RIPTION WITH VALID ID . LIC#[id number] EXP:[id number] elephone Encounter - Tiara Wendy Casper - 01/31/2019 8:31 AM PD TApt time was changed. elephone Encounter - Wendy Menjivar - 01/31/2019 8:31 AM PDTPatient was notified. Electr onically signed by Wendy Menjivar at 01/31/2019 8:31 AM PDTTelephone Encounter - Ashli Mosqueda Cert MA - 01/30/2019 4:59 PM PDTPMP Report Ran and Reviewed Prior to Surge ry. Also when you talk to Estefani please see if we can move her appointment up to 11:00 am with a 10:[address]Willard hair to fill the medication requested. Rx prepared and signed by . 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 Please contact the patient to let the patient know that the Rx is ready. The patient will need to provide a form of ID when p icking up the prescription. Please verify the patients ID at apple picking supervisor. elephon e Encounter - Robina Redding - 01/30/2019 1:09 PM PDTPatient called requesting refill . Medication: Oxycodone Out in: has no more Who will apple picking supervisor: Deaisaiaha documented in this encounter Plan of Treatment [...]
--- OUTSIDE RECORDS SUMMARY | ~2020-03-23 | XMS | Encounter Summary ---
Demographics + + + | Address | [address] | | | [place] [address] | + + + | Home Phone [...] | Author | [facility] | | | and [place]it[place] | + + + | Organization | [facility] | | | and [place] | + + + | Address | Unknown | + + + | Phone | Unavailable | + + + Support + + + + + | Name | Relationship | Address | Phone | + + + + + | India Tilley | [place] | [address] | | | | | [place], [place] | | | | | [address] | | + + + + + [...] Team Providers + +------+ + | Care Law Firm Receptionist Name | Role | Phone | + +------+ + PCP | Unavailable | + +------+ + Reason for Visit + + + | Reason | Comments | + + + | Referral | [facility] | + + + Encounter Details +--------+ + + + + | Date | Type | Department | Care Team | Description | +--------+ + + + + | 05/26/ | Documentati | [facility] [place] | Carlos Jansen, | Referral ([facility] | | 2019 | on | INFECTIOUS DISEASES | MD [address] | [facility] | | | | [address] | [place] [address] | center) | | | | [place], [place] | [phone] | | | | | [address] | | | | | | [phone] | | | +--------+ + + + [...] documented as of this encounter Progress Notes Sona Morris - 05/26/2019 11:27 AM PDTReferral was received 05/18 from [facility] requesting to change ID docs from Dr Min to Dr Jansen per Dr Muñoz's reque st for patient's osteomyelitis. Patient saw Dr Jansen IP and upon d/c she was moved to be with family in [place] where she es tablished with Dr Min ID. At time of referral patient had a f/u lyudmila scheduled with Pako, t his was later cancelled due to hospitalization. Dr Jansen reviewed patient's records, Pako's is in epic and doesn't feel we have anything t o add to patient's care and thinks she should stay with Pako closer to home. I faxed back his note to [phone]. I did not enter a referral to avoid confusion with t he current referral for Pako. Will discard additional records in 30 days. documented in this encou nter Plan of Treatment Not on filedocumented as of this encounter Visit Diagnoses Not on filedocumented in this encounter"
--- OUTSIDE RECORDS SUMMARY | ~2020-03-23 | XMS | Encounter Summary ---
Demographics + + + | Address | [address] | | | [place] [address] | + + + | Home Phone [...] Author | [facility] | | | and [place] | + + + | Organization | [facility] | | | and [place] | + + + | Address | Unknown | + + + | Phone | Unavailable | + + + Support + + + + + | Name | Relationship | Address | Phone | + + + + + | India Tilley | [place] | [address] | | | | | [place], [place] | | | | | [address] | | + + + + + [...] Team Providers + +------+ + | Care Dean For Student Affairs Name | Role | Phone | + +------+ + PCP | Unavailable | + +------+ + Encounter Details +--------+ + + + + | Date | Type | Department | Care Team | Description | +--------+ + + + + | 01/04/ | [facility] | [facility] | Santos Stephenson | Decreased glomerular | | 2018 | Encounter | MED CTR OR INTRA OP | MD Kinga, FACS [address] | filtration rate | | | | [address] | [place] | (GFR) | | | | [place] | [place] [address] | | | | | [address] | [phone] | | | | | [phone] | | | +--------+ + + + [...] what medicines and drugsyou take. This includes cncg-zwy-phy nter medicines, herbs, supplements, alcohol or other [...] 24 hours after surgery, have a trusted [facility] member or spouse act on your behalf. Avoid alcohol. Havea responsible adultstay with you.He or shecan watch for problems and help ke ep you safe. Date Last Reviewed: 08/13/201619994511-6948 [employer] [address] [place] [address]. All righ ts reserved. This information is not intended as a substitute for professional medical care. Always follow your healthcare professional's instructions. [facility] POST-OP INSTRUCTIONS: Arterio-Venous Fistula 1. Keep [...] might be diff erent from the original. [facility] [place] SURGICAL INTERIM HISTORY AND PHYSICAL [...] tunneled catheter worked well yesterday. I called [facility] [place] and confirmed catheter worked well. Considering this, I will not Change the catheter. Jus t do the arm fistula creation. PHYSICIAN'S VERIFICATION OF INFORMED CONSENT FOR BLOOD TRANSFUSION There is not a reasonable possibility that blood transfusion will be necessary as a result of the patient's procedure. Electronically signed by: Santos Stephenson, 01/04/2018 12:57 [facility] ield, Reynold Donato MD, FACS - 12/30/2017 [...] ? Francisca Womack PA-C Who is your Aitchbone Breaker/Kidney Specialist ? Dr. Muñoz When was the [...] dialysis on Wednesday, Wednesday and Fridays in [place]. She states she has had breast cancer, had a LEFT side mastectomy. CARDIAC: Denies OR, chest pain or tightness. RISK: Never smoker, current 38 year diabetic. Family Hx of diabetes. States mother had kid cedric failure NICO: Patient has previously been diagnosed with sleep apnea. She had a sleep study performe d at [facility] but does not wear a CPAP [...] Placement; Surgeon: Nora Leo MD; Location : [facility] MAIN OR Allergies Allergen Reactions [...] REPORT: PATIENT NAME : Estefani Tilley EQUIPMENT: SonGalaDo M-Turbo with 10-5 mHertz probe. INDICATIONS: Dialysis [...] MD, RHONA - 01/04/2018 3:54 PM [place]PR[place] OPER[place] NOTE Pt. Name/Age/: Estefani Tilley 72 y.o. 1945 Med. Record Number: [id number] Date of admission: 01/04/2018 Date of Operation/Procedure: [...] infiltrated in the anterior upper arm. The Ackworth tunnel er was passed subcutaneous in the anterior upper arm. The patient was heparinized (5000 uni ts). After a 3 minute circulation time the basilic vein was divided distally. The basilic vein was carefully passed through the Ackworth tunneler, keeping orientation correct. The vein was [...] Santos Stephenson MD, FACS, 01/04/2018 15:55 [facility] documented i n this encounter Plan of [...] | | | | | PDT | ([facility]) (N18.5) | | + +--------+ [...] + | [facility] | [address] | [place] | [phone] | | [facility] | | [address] | | | - LABORATORY | | [...] [address] | [place] | [phone] | | [facility] | | [address] | | | - LABORATORY | | [...] [address] | [place] | [phone] | | [facility] | | [address] | | | - LABORATORY | | [...] | | Cells | | | [facility] | | [...] + | [facility] | [address] | [place] | [phone] | | [facility] | | [address] | | | - LABORATORY | | [...] | mL/min/1.73m2 | [facility] | | | [place] | RATE,ESTIMATED | | MEDICAL | | | | mL/min/1.74l0Ktek than | | CENTER - | | [...] | [address] | [place] | [phone] | | [facility] | | [address] | | | - LABORATORY | | [...] Shortness of Breath, Starting | | | [facility] 01/04/18 at 1528, For 1 dose, [...]
--- OUTSIDE RECORDS SUMMARY | ~2020-03-23 | XMS | Encounter Summary ---
Demographics + + + | Address | [address] | | | [place] [address] | + + + | Home Phone [...] | Author | [facility] | | | and Kamaljitana | + + + | Organization | [facility] | | | and [place] | + + + | Address | Unknown | + + + | Phone | Unavailable | + + + Support + + + + + | Name | Relationship | Address | Phone | + + + + + | India Campos | ECON | [id number] | | | | | [place], [place] | | | | | [address] | | + + + + + [...] Team Providers + +------+ + | Care Swine Extension Field Specialist Name | Role | Phone | [...] Description | +--------+---------+ + + + | 05/23/ | Surgery | B[facility] ROMERO | Akash Ashraf | DI: MRI | | 2019 | | [facility] | MD Juan F [address] | | | | [address] | [facility] | | | | | [place] | [place] [address] | | | | | [address] | [phone] | | | | | [phone] | | | +--------+---------+ + + + [...] + + + | Blood Pressure | 167/68 | 05/23/2019 4:29 PM | | | | | PDT | | + + + + + | Pulse | 57 | 05/23/2019 4:29 PM | | | | | PDT | | + + + + + | Temperature | 36.7 C (98 F) | 05/23/2019 4:29 PM | | | | | PDT | | + + + + + | Respiratory Rate | 18 | 05/23/2019 4:29 PM | | | | | PDT | | + + + + + | Oxygen Saturation | 96% | 05/23/2019 4:29 PM | | | | | PDT [...] Christina MD - 05/25/2019 11:24 AM PDT [place], [place] HOSPITALIST DISCHARGE SUMMARY Pt. 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 S/p thoracentesis wit h 1300cc fluid removed, studies c/w transudative effusion. Cytology negative for malignant c ells. No growth on culture thus far. Patient is on room air. Of note, recent echo in March sh owed normal EF. 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 SBP 200s on a rrival here. Blood pressure improved after HD, resumption of home medications. Amlodipine an d losartan also added, Nephrology will CTM as outpatient. #Acute metabolic encephalopathy Possibly 2/2 medication as patient received 1mg Ativan at OSH BUSINESS CONTINUITY ANALYST. At baseline currently. #Recent osteomyelitis Patient [...] Nephrology Why: Nephrology follow up Contact information: [address] [place] [address] Condition: stable Diet: renal, cc Greater than 30 minutes were spent on discharge and coordination of post-hospital care. Electronically signed by: Nora Christina MD, 05/25/2019 11:24 [facility] documented in this enco unter Discharge Instructions [...] will likely include a biopsy in the [facility] down the line. Nora Christina MD [...] of Anemia, Arthritis, Back pain, Breast cancer ([facility]), Cancer ([facility]), Diabetes ([facility]), Heart disease, Hemodialysis patient ([facility]), History of blood clots, Hypercholesteremia, Hypertensio n, Hypothyroidism, Renal failure, Seasonal allergies, and Stroke (cerebrum) ([facility]). . Risk fa ctors for MDR [...] Culture, Body Fluid, Sterile, Smear, with Anaerobes [[id number]] Collected: 05/22/19 1509 Order Status: Sent Lab Status: In process Updated: 05/22/19 800 Specimen: Body Fluid from Pleural Fluid, Left Narrative: The following orders were created for panel order Culture, Body Fluid, Sterile, Smear, wit h Anaerobes. Procedure Abnormality Status --------- ------ Culture, Body Fluid, Aerobe[[id number]] Preliminary result Culture, Body Fluid, Bre...[[id number]] In process Please view results for these tests on the individual orders. Culture, Fungus, Smear [[id number]] Collected: 05/22/19 1509 Order Status: Sent Lab Status: In process Updated: 05/22/19 1510 Specimen: Body Fluid from Pleural Fluid, Left Culture, Body Fluid, Aerobe [[id number]] Collected: 05/22/19 1509 Order Status: Completed Lab Status: Preliminary result Updated: 05/24/19 1038 Specimen: Body Fluid from Pleural Fluid, Left Culture No growth to date Gram Stain Result 4+ White Blood Cells No organisms seen Culture, Body Fluid, Anaerobe [[id number]] Collected: 05/22/19 1509 Order Status: Resulted Lab Status: In process Updated: 05/22/19 1510 Specimen: Body Fluid from Pleural Fluid, Left Culture, MRSA [[id number]] Collected: 05/20/192021 Order Status: Completed Lab Status: Final result Updated: 05/22/19 0753 Specimen: Tissue from Nares Culture Negative for MRSA by chromogenic agar method. 2+ Coagulase positive Staphylococcus Culture, Blood, 2nd Specimen [[id number]] Collected: 05/18/19 1548 Order Status: Completed Lab Status: Final result Updated: 05/24/19 0546 RESULT NO GROWTH 6 DAYS RESULT Testing performed at [facility];[address] [place] [address] Comment: Testing performed at [facility], [address] [place] [address] Culture, Blood [[id number]] Collected: 05/18/19 1508 Order Status: Completed Lab Status: Final result Updated: 05/24/19 0546 Specimen: Blood from Antecubital, Right RESULT NO GROWTH 6 DAYS RESULT Testing performed at [facility];[address] [place] [address] Comment: Testing performed at [facility], [address] [place] [address] Culture, Blood [[id number]] Collected: 05/18/19 1447 Order Status: Canceled Lab [...] and htn Prior to admission dialysis schedule: [facility] Vancomycin Dosing in HD patients: Loading dose [...] on r/a.E lectronically signed by Karena Lao, RN at 05/24/2019 10:21 PM Gopi Hassan DO - 05/24/2019 10:16 PM PDTRENAL I discussed MRI , CRP, ESR, Cxs, case with his previous ID Benzene Washer Operator, Dr. Nick Miller MD . He recommends [...] Bx's here. Therefore, shai kearney confer with [facility] IR, outpt. She was agreeable to staying one more nite for HD and clarif y AB regimen. Vanc. /Cefepime were given, IV, during discussion, after reviewing MRI report but before the phone conversation with Dr. Jung. BP control is better. Her Mental status is very clear. Also had HD x 5 hrs, 2K+, 35 HCO3 a nd tolerated well. [facility] Joo Rodriguez C, Vertical Contour Band Saw Operator - 05/24/2019 3:46 PM PDT VANCOMYCIN PER PHARMACY PROTOCOL: AMS/Drug Name - Vancomycin Patient: Ara Campos [id number] Admit: 05/20/2019 20:16 RELEVANT ALLERGIES: Amoxicillin 74 yrs old female patient admitted on 05/20/2019 for shortness of breath. Patient is receiv ing vancomycin starting on 05/24/2019 for osteomyelitis. Patient has a past medical histor y of Anemia, Arthritis, Back pain, Breast cancer ([facility]), Cancer (HCC), Diabetes (HCC), Heart disease, Hemodialysis patient (HCC), History of blood clots, Hypercholesteremia, Hypertensio n, Hypothyroidism, Renal failure, Seasonal allergies, and Stroke (cerebrum) ([facility]). . Risk fa ctors for MDR [...] Culture, Body Fluid, Sterile, Smear, with Anaerobes [[id number]] Collected: 05/22/19 1509 Order Status: Sent Lab Status: In process Updated: 05/22/19 0687 Specimen: Body Fluid from Pleural Fluid, Left Narrative: The following orders were created for panel order Culture, Body Fluid, Sterile, Smear, wit h Anaerobes. Procedure Abnormality Status --------- ------ Culture, Body Fluid, Aerobe[[id number]] Preliminary result Culture, Body Fluid, Bre...[[id number]] In process Please view results for these tests on the individual orders. Culture, Fungus, Smear [[id number]] Collected: 05/22/19 150 Order Status: Sent Lab Status: In process Updated: 05/22/19 1510 Specimen: Body Fluid from Pleural Fluid, Left Culture, Body Fluid, Aerobe [[id number]] Collected: 05/22/19 1509 Order Status: Completed Lab Status: Preliminary result Updated: 05/24/19 1038 Specimen: Body Fluid from Pleural Fluid, Left Culture No growth to date Gram Stain Result 4+ White Blood Cells No organisms seen Culture, Body Fluid, Anaerobe [[id number]] Collected: 05/22/19 1509 Order Status: Resulted Lab Status: In process Updated: 05/22/19 1510 Specimen: Body Fluid from Pleural Fluid, Left Culture, MRSA [[id number]] Collected: 05/20/192021 Order Status: Completed Lab Status: Final result Updated: 05/22/19 0753 Specimen: Tissue from Nares Culture Negative for MRSA by chromogenic agar method. 2+ Coagulase positive Staphylococcus Culture, Blood, 2nd Specimen [[id number]] Collected: 05/18/19 1548 Order Status: Completed Lab Status: Final result Updated: 05/24/19 0546 RESULT NO GROWTH 6 DAYS RESULT Testing performed at [facility];[address] [place] [address] Comment: Testing performed at [facility], [address] [place] [address] Culture, Blood [[id number]] Collected: 05/18/19 1508 Order Status: Completed Lab Status: Final result Updated: 05/24/19 0546 Specimen: Blood from Antecubital, Right RESULT NO GROWTH 6 DAYS RESULT Testing performed at [facility];[address] [place] [address] Comment: Testing performed at [facility], [address] [place] [address] Culture, Blood [[id number]] Collected: 05/18/19 1447 Order Status: Canceled Lab [...] BP elevated Prior to admission dialysis schedule: [facility] Vancomycin Dosing in HD patients: Loading dose [...] Monitoring Protocol Electronically signed by: Joo Bo, Vertical Contour Band Saw Operator 05/24/2019 15:46Electroni terri signed by Joo Bo, Vertical Contour Band Saw Operator at 05/24/2019 4:49 PM Kwame Guerin MD - 05/24/2019 11:04 AM PDTFormatting of this note might be different from the origin al. [facility] [place] HOSPITALIST PROGRESS NOTE Patient: Ara Campos : 1945: Age: 74 y.o. MedRec: [id number] Admission date: 05/20/2019 Hospital day # : [...] as patient received 1mg Ativan at [facility] BUSINESS CONTINUITY ANALYST. At baseline currently. #Recent osteomyelitis Patient admitted with T11-12 osteomyelitis and completed 6 weeks vanc/cefepime. Rep eat MRI again redemonstrated possible osteomyelitis - vanc and cefepime have been resumed, Deepa Muñoz is discussing case with ID. #Diabetes Blood sugars at goal. CCM. Patient is again very upset about the food provided at the [facility] [...] BID Gopi Muñoz DO 5 mg at 903 aspirin EC tablet 81 mg 81 mg Oral Daily Olegario Peng MD 81 mg at 05/24/19903 calcium acetate (PHOSLO) capsule 667 mg 667 mg Oral TID Olegario Peng MD 667 m g at 05/24/19908 cholecalciferol (VITAMIN D-3) tablet 2,000 Units 2,000 Units Oral Daily Olegario jimenez MD 2,000 Units at 05/24/19903 cloNIDine (CATAPRES) 0.1 mg/24 hr 1 patch [...] Subcutaneous 4x D aily WC and HS lOegario Peng MD labetalol (NORMODYNE) tablet 300 mg [...] Culture, Body Fluid, Sterile, Smear, with Anaerobes [[id number]] Collected: 05/22/19 1507 Order Status: Sent Lab Status: In process Updated: 05/22/191512 Specimen: Body Fluid from Pleural Fluid, Left Narrative: The following orders were created for panel order Culture, Body Fluid, Sterile, Smear, wit h Anaerobes. Procedure Abnormality Status --------- ------ Culture, Body Fluid, Aerobe[[id number]] Preliminary result Culture, Body Fluid, Bre...[[id number]] In process Please view results for these tests on the individual orders. Culture, Fungus, Smear [[id number]] Collected: 05/22/19 1509 Order Status: Sent Lab Status: In process Updated: 05/22/19 1510 Specimen: Body Fluid from Pleural Fluid, Left Culture, Body Fluid, Aerobe [[id number]] Collected: 05/22/19 150 Order Status: Completed Lab Status: Preliminary result Updated: 05/24/19 1038 Specimen: Body Fluid from Pleural Fluid, Left Culture No growth to date Gram Stain Result 4+ White Blood Cells No organisms seen Culture, Body Fluid, Anaerobe [[id number]] Collected: 05/22/19 1509 Order Status: Resulted Lab [...] rate 6L/min Nora Christina MD 05/24/2019 11:04 [facility] Michelle Solorzano Phar mD - 05/23/2019 6:27 [...] ? Pharmacy list names: [facility] ([place]) ? [employer] insurance reported information Vaccines up [...] Tobacco & Alcohol use/frequency: ? Recreational substances: [id number] asked how much or how often patient sta rich "I smoke as much as I want" Other: No changes to BUSINESS CONTINUITY ANALYST list, due to the fact that patient was very non compliant. She either di d not want to take her medications, or she stated that she did not know if she was taking th em. She did not want to do the interview. Best possible BUSINESS CONTINUITY ANALYST medication list after pharmacy review: Medication review performed and electronically signed by Kerry Jordan, Family Helper 05/23/2019 16:20 Reviewed by Michelle Ochoa PharmD 05/23/2019 18:26 Nora Guerin MD - 05/23/2019 3:20 PM PDT [facility] [place] HOSPITALIST PROGRESS NOTE Patient: Ara Campos : 1945: Age: 74 y.o. MedRec: [id number] Admission date: 05/20/2019 Hospital day # : [...] as patient received 1mg Ativan at O[facility] BUSINESS CONTINUITY ANALYST. At baseline currently. #Recent osteomyelitis Patient [...] Culture, Body Fluid, Sterile, Smear, with Anaerobes [[id number]] Collected: 05/22/19 1509 Order Status: Sent Lab Status: In process Updated: 05/22/19 151 Specimen: Body Fluid from Pleural Fluid, Left Narrative: The following orders were created for panel order Culture, Body Fluid, Sterile, Smear, wit h Anaerobes. Procedure Abnormality Status --------- ------ Culture, Body Fluid, Aerobe[[id number]] Preliminary result Culture, Body Fluid, Bre...[[id number]] In process Please view results for these tests on the individual orders. Culture, Fungus, Smear [[id number]] Collected: 05/22/19 150 Order Status: Sent Lab Status: In process Updated: 05/22/19 1510 Specimen: Body Fluid from Pleural Fluid, Left Culture, Body Fluid, Aerobe [[id number]] Collected: 05/22/19 150 Order Status: Completed Lab Status: Preliminary result Updated: 05/23/19 09 Specimen: Body Fluid from Pleural Fluid, Left Culture No growth to date Gram Stain Result 4+ White Blood Cells No organisms seen Culture, Body Fluid, Anaerobe [[id number]] Collected: 05/22/19 150 Order Status: Resulted Lab Status: In process Updated: 05/22/191509 Specimen: Body Fluid from Pleural Fluid, Left Culture, MRSA [[id number]] Collected: 05/20/192021 Order Status: Completed Lab Status: [...] rate 0.5L/min Nora Christina MD 05/23/2019 15:20 [facility] documented in this enco unter H&P Notes Akash Ashraf MD - 05/23/2019 4:22 PM PDTSurgical Interim History & Physical Upda te Pt. Name/Age/: Ara Campos 74 y.o. 1945 Date of Admission: 05/20/2019 The current H&P was reviewed. The patient was reexamined. Re-evaluation of the patient co nfirms the necessity for the scheduled procedure. No change has occurred in the patient s condition since the H&P was completed less than 30 days ago. Mallampati Class 3 (soft and hard palate clearly) [place] [employer] Anest[employer] Grade:ASA 2 - A patient with mild systemic disease Sedation Plan:Moderate VERIFICATION OF CONSENT (PARQ) The patient was counseled regarding the procedure, its indications, risks, potential compli cations and alternatives. Any questions were answered. Consent was obtained. Akash Ashraf MD, 05/23/2019 16:22 [facility] huck Peng MD - 05/20/2019 8:42 PM PDT [facility] [place] HOSPITALIST HISTORY & PHYSICAL Patient: Ara Jimenez Jarek : 1945: Age: 74 y.o. MedRec: [id number] Admission date: 05/20/2019 Hospital day # : [...] is compliant with medications. Patient presented to [facility], patient at that time was requiring 2 LPM with elevated blood pressure 200 systolic. Labs were relatively unremarkable but due to hypoxia was requested be transferred for dialysis. PAST MEDICAL and SURGICAL HISTORY: Past Medical History: Diagnosis Date Anemia Arthritis Back pain Breast cancer (HCC) s/p left mastectomy in 2004, s/p chemotherapy Cancer (HCC) Diabetes (HCC) Heart disease Hemodialysis patient ([facility]) wed-wed-wed History of blood clots Hypercholesteremia Hypertension Hypothyroidism Renal failure Seasonal allergies Stroke (cerebrum) ([facility]) Past Surgical History: Procedure Laterality Date APPENDECTOMY EYE SURGERY 2009 HIP SURGERY Right 12/04/2018 Procedure: ORIF HIP W/CANNULATED SCREWS; Surgeon: Scott Koroma MD; Location: [facility] MAIN OR HYSTERECTOMY MASTECTOMY 2006 left ear NOSE SURGERY 2009 OTHER SURGICAL HISTORY Right 03/28/2019 Procedure: TUNNEL PICC LINE PLACEMENT-6fr 22cm BARD Power Line; Surgeon: Jose Jiménez MD; Location: [facility] INTERVENTIONAL RADIOLOGY REMOVAL TUNNELED CATHETER Right [...] FACS; Location: [facility] MAIN OR FAMILY HISTORY: family history includes [...] tablet by mouth Daily. 90 tablet Gopi kearney, DO gabapentin (NEURONTIN) 100 mg capsule Take 2 capsules by mouth every morning. Gopi Muñoz DO HYDROcodone-acetaminophen (NORCO) 5-325 mg per tablet Take 1 tablet by mouth every 12 hour s as needed for Pain. 40 tablet Gopi Muñoz DO hydrophilic ointment Apply 1 Application topically Daily. For dry skin Historical Provid erMD Insulin Pen Needle 31G X 5 MM [...] by mouth Daily. 90 tablet Gopi Muñoz, DO olopatadine (PATANOL) 0.1% ophthalmic solution Place [...] Value Units Date/Time Culture, Blood, 2nd Specimen [[id number]] Collected: 05/18/19 1548 Order Status: Completed Lab Status: Preliminary result Updated: 05/20/19717 RESULT NO GROWTH 2 DAYS RESULT Testing performed at [facility];[place] [address] Comment: Testing performed at [facility], [facility], [place] [address] Culture, Blood [[id number]] Collected: 05/18/19 1508 Order Status: Completed Lab Status: Preliminary result Updated: 05/20/19717 Specimen: Blood from Antecubital, Right RESULT NO GROWTH 2 DAYS RESULT Testing performed at [facility];[place] [address] Comment: Testing performed at [facility], [facility], [place] [address] Radiology results No results found. I reviewed [...] of vancomycin/cefepime. At that time, admitted to [place]. IR aspiration of T11/T12 gram stain/cultures had [...] Renal, Carb PPX: HSQ Disp: PT/OT ordered [facility] Documentation I expect this patient will be hospitalized for greater than 2-midnights and expect the post -hospital plan to be discharge to home or to an adult foster home. Electronically signed by: Olegario Peng MD 05/20/2019 20:42 [facility] documented in this e ncounter Consult Notes Gopi Muñoz DO - 05/21/2019 6:10 PM PDT [facility] [address] [place] [address] NEPHROLOGY CONSULT Pt. Name/Age/: Ara Campos 74 y.o. 1945 Med. Record Number: [id number] Date of admission: 05/20/2019 Reason for consultation: Acute pulmonary edema Referring Provider: ED, [facility], [place]. 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 She skipped her Wednesday [...] multiple conversations with the charge nurse at [facility], as she almost daily presents with [...] 11/03/2017 and then was DC to the [facility] at [place], [place]. Unfortunately, she h as had intermittent [...] marked as taking for the 05/20/19 encounter ([facility]). [ Dialysis Clinic suspects that she is [...] has very f requent absenteeism from the [facility]. FAMILY HISTORY: Father: in [...] effusion? 9. Recent history of osteomyelitis of C91-L74--Cdsv recheck her ESR, CRP. Also will consi jorge repeat imaging although CT of the chest, today, does show some imaging of that reason? PLAN 1. This AM she had 5-hour Nxstage treatment, QB 350, daily 7 L/hour, [id number], 2K + with UF 4 kg. 2. We will ask radiology to kindly attempt US guided thoracentesis in a.m. with work-up of fluid including protein, LDH, glucose, cell count, differential, AFB, fungal, bacterial kvng dies and cytology. 3. I strongly reinforced the need for a <1000 cc daily fluid restriction. 4. I had a very evelin, [id number] discussion with Ara that she is very high risk fo r CVA given her current practice. 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 I told her I think she may be better served moving anna Diaz to more affordable housing, nearby a local [facility] clinic. She states that she will consider this. 5. GI and DVT prophylaxis is already been ordered by the hospitalist service. Appreciate their help. Thank you for the chance to see this very interesting patient. Will follow the patient wit h you. [facility] CC: [facility], [place], [place]. Nick Jung MD, MPH Mat Brooks MD, [facility], [place] ED, [facility]. [facility], [place] documented in thi s encounter Miscellaneous Notes Plan of Care - Sharon Rosado RN - 05/25/2019 2:15 PM PDTThis CM f/u with patient today reg arding all her discharge planning needs. Let patient know that an OP PT OT referral order was sent to [facility] OP Therapy with c all to them letting them know that patient is being discharged today and that an order has b een faxed. Fax transmission with + fax confirmation placed in ghost chart. CM also faxed the order for patient's PICC care weekly to f# [phone] Peralta to sign off so patient can cont at OP infusions without her need for further IV abx at this time. She will be going home with her IJ PICC in place per request of Dr. Muñoz, who states th at she has had this in since March. Fax confirmation with + fax confirmation placed in ghost chart. Reminded patient to be compliant with her HD at [facility]. She states that she drives herself there and back. Her sister will be driving her home today, so reminded her to remind her sister to go to he r dialysis treatments and not miss them. This CM also left message with Emili RN, at [facility] letting her know that patient was d ischarged today and that she is being set up with OP therapies and OP Infusions at [facility]. She will continue her OP HD at [facility] in [place]. Requested that Emili start working on the CHR process for this patient since the nephrologi feels that she is needing this. Electronically signed by: Sharon Rosado RN 05/25/2019 14:37 lan of Gregg Jimenez RN - 05/25/2019 2:21 AM PDTPt. tolerated HD well earlier in tariq. R Fistula with g ood thrill and bruit. Received dilaudid 0.2 mg IV for low back pain during HD. Glucose hs 125. Remains on RA. Continue with 1500 cc fluid restriction. Plan is to DC today. Electr onically signed by Estephania Mahajan RN at 05/25/2019 2:23 AM PDTPlan of Lorenza Gaines RN - 05/24/2019 5:31 PM PDTPt a/ox4, free from falls, SBA, but did not ambulate toda y. Often tearful and frustrated, but does well with conversation, redirection and encouragem ent. Compliance comes and goes regarding medications. AREA REPRESENTATIVE set her up for shower, but pt did not comply. Currently undergoing dialysis (MWF), VSS, no c/o pain. lan of Sharon Vicente RN - 05/24/2019 4:34 PM PDTThis CM contacted Aleta at [facility] in [place]. She states that patient has been a [...] at she needs to keep her appts. Emili [facility], p# [phone], from [facility] called this CM and was segundo [...] herring sport her home tomorrow. Left this global technical writer's p# with her. CM to follow. Electronically signed by: Sharon Rosado RN 05/24/2019 17:10 lan of Robert Kaur OT - 05/24/2019 3:45 PM PDTTherapy Plan [...] Momo Lin OT, 05/24/2019 16:38 lan of Christiana Ernst PTA - 05/24/2019 11:26 AM PDTFormatting of [...] term facility Post discharge physical therapy recommendation: will [...] Assistive Device: bed rails Scoot/Bridge, Level of [place]: supervised Supine to Sit, Level of [place]: stand by assist, verbal cues required Sit to Supine, Level of [place]: stand by assist Safety Issues: decreased use [...] STG Status progressing at 05/24/2019 1126 STG [place] Level modified independent at 05/22/2019 1042 STG Assistive Device none at 05/22/2019 1042 Wtz-Jtnqh-Prb Goal Most Recent Value STG Status new at 05/22/2019 1042 STG [place] Level modified independent at 05/22/2019 1042 STG Assistive Device 2 wheeled walker (FWW) at 05/22/2019 1042 Gait Goal Most Recent Value STG Status new at 05/22/2019 1042 STG [place] Level modified independent at 05/22/2019 1042 STG [...] systemic disease Sedation Plan: Moderate lan of Wisam Ward PTA - 05/23/2019 3:24 PM PDTTherapy Plan [...] Wisam Wetzel PTA, 05/23/2019 15:26 lan of Mira Mittal RN - 05/23/2019 1 1:18 AM PDTPt asking for medication to help with anxiety during MRI. Dr Muñoz notified an d changed order to conscious sedation MRI, pt made NPO for procedure. R chest central line p atent. Pt voiding in toilet refuses to leave measuring device in toilet.Electronically reed d by Mira León RN at 05/23/2019 1:37 PM PDTPlan of Kimberly Dutton OT Stud ent - 05/23/2019 10:24 AM [...] AM PDTPortions of the avelina luation data processing systems consultant were performed and entered by Kimberly Lanza, Occupational Therapy Stud ent, under the direct supervision of Clinical Instructing Liscensed Occupational Therapist. I have reviewed this documentation [...] but did comply. Medicated once for pain 810 in left ribs with good relief of pain. lan of Melanie - Mira León RN - 05/22/2019 6:02 PM [id number] Received from [facility]. A&O. R chest PICC intact. Pt remains on fluid restriction. lan of Care - Pita Alexander RN - 05/22/2019 11: 21 AM PDTDischarge Planning: CM to patient room for supportive visit. Patient alert and oriented x 3 and resting comfortably in bed. Patient's son and also her sister India ([phone]) present and suppo rtive at bedside. CM verified that patient sees [facility] for primary care, however they current ly do not have a provider so she has been utilizing Dr. Muñoz for any needs. Patient is an ESRD patient who goes to outpatient hemodialysis M,W,F at the [facility] in [place]. Options for discharge discussed. PT/OT are recommending SNF. Patient endorses that s he has been to [facility] in the past and is adamant that she not return there. CM discuss ed options for local SNF's in [place]. Patient states she "will have to think about bettye t" and did not zakiya permission for CM to send referrals. Patient does not own her own home , but alternates between staying with her sisters or her son so is unable to commit to a [facility] permanent address for home health services. Patient and her sister came up with idea for outpatient therapies through [facility] at the [facility] in [place]. That way the patient could go to set appointments regard less of where she is staying. CM left sticky note for provider to order. Patient denies any additional questions, concerns, or needs regarding anticipated plan to return home with family in [place] when medically stable. Patient's son or sister shai kearney provide transportation and will be available to assist as needed after discharge. Disposition: Plan A: Home with family support and chronic outpatient HD, and outpatient therapies through [facility] in [place]. Vs Plan B: TBD CM to continue to follow and re-visit closer to time to discharge to see if patient will ag ree to SNF. If not, assist with order for outpatient therapies. Electronically signed by: Pita Alexander RN 05/22/2019 11:26 lan of Care - Ben lucien, Leila Mast, PT - 05/22/2019 10:10 AM PDTFormatting of this note might be different from the o riginal. Physical Therapy Plan of Care Initial Evaluation, [...] muscle performance, posture, ventilation and respiration/gas exchang eMarianela Jara is cooperative w/ therapy services although verbalizes [...] mobilize at level safe for home discharge, [facility] indicating signif icant impairment with basic functional [...] term facility Post discharge physical therapy recommendation: will [...] heavily on FWW for support Level of [place]: contact guard assist, verbal cues required Assistive Device: 2 wheeled walker (FWW) Distance (feet): 120 Impairments: impaired balance, pain, strength decreased, postural control impaired, motor c ontrol impaired Transfers cuing for sequencing and safety w/ fair return demo Sit-Stand, Level of [place]: contact guard assist, verbal cues required Stand-Sit, Level of [place]: stand by assist, verbal cues required Rek-Kwtig-Uju, Assistive Device: 2 wheeled walker (FWW) Safety [...] Assistive Device: bed rails Scoot/Bridge, Level of [place]: supervised Supine to Sit, Level of [place]: stand by assist, verbal cues required Sit to Supine, Level of [place]: stand by assist Safety Issues: decreased use of arms for pushing/pulling, impaired trunk control for bed mo bility, decreased use of legs for bridging/pushing Impairments: strength decreased, impaired balance, postural control impaired Balance Sitting Balance: Static: normal balance Sitting Balance: Dynamic: good balance Standing Balance: Static: fair balance Standing Balance: Dynamic: (fair-) [facility] BASIC MOBILITY Turning from your back [...] Mobility Six Click AM-PAC: 17 Completed the [facility] Activity Measure for Post Acute Care (AM-PAC) "6 Clicks" Ba sic Mobility Inpatient Short Form. This version of the AM-PAC is an assessment tool used to measure a person's level of disability in performing basic mobility tasks. Ara's score indicates a performance of 50.57% impairment in the functioning of basic mobility. Raw Score - Functional Limitation % (for [facility]) - "Severity Modifier" CN 6 - 100.00 [...] STG Status new at 05/22/2019 1042 STG [place] Level modified independent at 05/22/2019 1042 STG Assistive Device none at 05/22/2019 1042 Vos-Cbdlz-Lkr Goal Most Recent Value STG Status new at 05/22/2019 1042 STG [place] Level modified independent at 05/22/2019 1042 STG Assistive Device 2 wheeled walker (FWW) at 05/22/2019 1042 Gait Goal Most Recent Value STG Status new at 05/22/2019 1042 STG [place] Level modified independent at 05/22/2019 1042 STG Assistive Device 2 wheeled walker (FWW) at 05/22/2019 1042 STG Distance (feet) 300 at 05/22/2019 1042 Electronically signed by: Leila Levy PT, 05/22/2019 10:49 lan of Nan Worthington [...] RN at 05/22/2019 4:59 AM PDTPlan of Melanie Alatorre, Ashlie Puente RN - 05/21/2019 6:44 PM PDTPatient has [...] helpful. Plan for Thoracentesis tomorrow. lan of Care - Kimberly Lanza, OT Student - 05/21/2019 4:40 PM PDT Occupational Therapy Plan of Care Initial Evaluation, Treatment Note Summary: Ara presents to occupational therapy with decreased independence and safety i n ADLs, IADLs and functional mobility who presents with shortness of breath after missing di alysis. History of end-stage renal disease (MWF), hypertension, abf-bhdmpsm-gfcfrzvcw diabet es, hypothyroidism, anemia of chronic disease, [...] cu es for safety. Grooming, Level of [place]: stand by assist, verbal cues required, set [...] bed rails, HOB elevated Scoot/Bridge, Level of [place]: supervised Supine to Sit, Level of [place]: stand by assist Sit to Supine, Level of [place]: stand by assist Safety Issues: cognitive deficits [...] still attached to monitors. Sit-Stand, Level of [place]: contact guard assist, verbal cues required Stand-Sit, Level of [place]: stand by assist, verbal cues required Rhx-Yunjo-Kzo, Assistive Device: none(pt refused using FWW) Safety [...] STG Status new at 05/21/2019 1640 STG [place] Level modified independent at 05/21/2019 1640 Toilet Transfer Goal Most Recent Value STG Status new at 05/21/2019 1640 STG [place] Level modified independent at 05/21/2019 1640 Tub/Shower Transfer Goal Most Recent Value Tub/Shower Type tub/shower combo at 05/21/2019 1640 STG Status new at 05/21/2019 1640 STG [place] Level modified independent at 05/21/2019 1640 Electronically signed by: Kimberly Lanza OT Student, 05/21/2019 17:20 Associated attestation - Daina Dumont OT - 05/21/2019 5:54 PM PDTPortions of the avelina luation data processing systems consultant were performed and entered by Kimberly Lanza, Occupational Therapy Stud ent, under the direct supervision of Clinical Instructing Liscensed Occupational Therapist. I have reviewed this documentation [...] Total UF was 4107 mls. lan of Leila Partida PT - 04/2019 1:46 PM PDTTherapy Plan [...] be completed tomorrow. Electronically signed by: Leila Levy PT, 05/21/2019 13:46 lan of Savita Green Speech Pathologist - 05/21/2019 12:36 PM PDT [...] 05/21/2019 12:36 lan of Care - Tabatha Martinez RN - 05/21/2019 11:15 AM PDT Attempted [...] or CPAP. e states she was at [facility] a while ago, she cannot recall how long ago it was. When asked about her PCP she stated she goes to the [facility] clinic and then declined to answer any more questions. CM to continue to follow and assess for any discharge needs. Plan: TBD Electronically signed by: Tabatha Acosta RN 05/21/2019 18:31 lan of Melanie - Leila Levy PT - 05/21/2019 9:01 AM PDTTherapy Plan [...] Ashlie Navarro RN - 05/21/2019 8:30 AM [id number] today- Oral meds held until after Hemodialysis per Dr. Muñoz. SBP 190s. Monitoring. l an of Care - Nan Jackson RN - 05/21/2019 6:13 [...] | | Therapy | | | dialysis ([facility]) | | | | | | Essential [...] [address] | [place] | [phone] | | [facility] | | [address] | | | - LABORATORY | | | | + + + + + POC Glucose (05/25/2019 7:38 AM PDT) + +-------+ + + + | Component | Value | Ref Range | Performed | Pathologist | | | | | At | Signature | + +-------+ + + + | Glucose, | 102 | 70 - 109 mg/dL | BETH [...] [address] | [place] | [phone] | | [facility] | | [address] | | | - LABORATORY | | [...] 21 | 9 - 23 mg/dL | [facility] | | | | | | [facility] | | | | | MEDICAL | | | | | | CENTER - | | | | | | LABORATORY | | + + + + + + | Creatinine | 4.14 (H) | 0.55 - 1.02 | [facility] | | | | | mg/dL | [facility] | | | | | | MEDICAL | | | | | | CENTER - | | | | | | LABORATORY | | + + + + + + | eGFR if not | 11 (L)Comment: | >=60 | [facility] | | | | GLOMERULAR FILTRATION | mL/min/1.73m2 | [facility] | | | [place] | RATE,ESTIMATED | | MEDICAL | | | | mL/min/1.08w4Wmia than | | CENTER - | | [...] [address] | [place] | [phone] | | [facility] | | [address] | | | - LABORATORY | | [...] ST. | [address] | [place], [place] | [phone] | | [facility] | | [address] | | | - LABORATORY | | [...] [address] | [place] | [phone] | | [facility] | | [address] | | | - LABORATORY | | [...] | [facility] | [address] | [place] | [phone] | | [facility] | | [address] | | | - [...] [address] | [place] | [phone] | | [facility] | | [address] | | | - LABORATORY | | [...] | | | FILTRATION | mL/min/1.73m2 | [facility] | | | [place] | RATE,ESTIMATED | | MEDICAL | | | | mL/min/1.47s8Dcvy than | | CENTER - | | [...] [address] | [place] | [phone] | | [facility] | | [address] | | | - LABORATORY | | [...] [address] | [place] | [phone] | | [facility] | | [address] | | | - LABORATORY | | [...] + | [facility] | [address] | [place] | [phone] | | [facility] | | [address] | | | - LABORATORY | | [...] [address] | [place] | [phone] | | [facility] | | [address] | | | - LABORATORY | | [...] [address] | [place] | [phone] | | [facility] | | [address] | | | - LABORATORY | | | | + + + + + POC Glucose (05/23/2019 6:39 AM PDT) + +-------+ + + + | Component | Value | Ref Range | Performed | Pathologist | | | | | At | Signature | + +-------+ + + + | Glucose, | 77 | 70 - 109 mg/dL | BETH [...] [address] | [place] | [phone] | | [facility] | | [address] | | | - LABORATORY | | [...] (H) | 9 - 23 mg/dL | [facility] | | | | | | [facility] | | | | | | MEDICAL | | | | | | CENTER - | | | | | | LABORATORY | | + + + + + + | Creatinine | 5.83 (H) | 0.55 - 1.02 | [facility] | | | | | mg/dL | [facility] | | | | | | MEDICAL | | | | | | CENTER - | | | | | | LABORATORY | | + + + + + + | eGFR if not | 7 (L)Comment: GLOMERULAR | >=60 | [facility] | | | | FILTRATION | mL/min/1.73m2 | [facility] | | | [place] | RATE,ESTIMATED | | MEDICAL | | | | mL/min/1.71k9Xhir than | | CENTER - | | [...] [address] | [place] | [phone] | | [facility] | | [address] | | | - LABORATORY | | [...] | | Cells | | M/uL | [facility] | | | | | | MEDICAL | | | | | | CENTER - | | | | | | LABORATORY | | + + + + + + | Hemoglobin | 8.6 (L) | 11.5 - 16.0 | [facility] | | | | | g/dL | [facility] | | | | | [...] + | [facility] | [address] | [place] | [phone] | | [facility] | | [address] | | | - LABORATORY | | [...] [address] | [place] | [phone] | | [facility] | | [address] | | | - LABORATORY | | [...] [address] | [place] | [phone] | | [facility] | | [address] | | | - LABORATORY | | [...] + | Anjum Jordan Results In - 05/22/2019 3:32 PM PDT [...] + | [facility] | [address] | [place], [place] | [phone] | | [facility] | | [address] | | | - LABORATORY | | [...] + + | Performed at: 02 - [facility] [place] [address], | REFERENCE LAB | | [place] [id number] [employer] Liv[employer] Farmer: Violette Mcconnell MD, Phone: | [facility] | | [phone] | | + + + + + + + + | Performing | Address | City/State/Zipcode | Phone Number | | Organization | | | | + + + + + | REFERENCE LAB | [address] | [place], [place] | [phone] | | [facility] | [facility] | [address] | | + + + + + [...] + | Performed at: 01 - [facility] [place] [address], | REFERENCE LAB | | [place], [place] [id number] [employer] Farmer: Ernie Lee MD, Phone: | [facility] | | [phone] | | + + + + + + + + | Performing | Address | City/State/Zipcode | Phone Number | | Organization | | | | + + + + + | REFERENCE LAB | [address] [facility] | [place], [place] | [phone] | | [facility] EP[facility] | [facility] | [address] | | + + + + + [...] [address] | [place] | [phone] | | [facility] | | [address] | | | - LABORATORY | | [...] [address] | [place] | [phone] | | [facility] | | [address] | | | - LABORATORY | | [...] + + | Performed at: 01 - [place] [address], | REFERENCE LAB | | [place], [place] [id number] [employer] Farmer: Ernie Lee MD, Phone: | [facility] | | [phone] Performed at: - [address] | | | [place], [place] [id number] [employer] Farmer: Violette Mcconnell MD, | | | Phone: [phone] | | + + + + + + + + | Performing | Address | City/State/Zipcode | Phone Number | | Organization | | | | + + + + + | REFERENCE LAB | [address] | [place], [place] | [phone] | | [facility] | [facility] | [address] | | + + + + + [...] [address] | [place] | [phone] | | [facility] | | [address] | | | - LABORATORY | | [...] | [facility] | [address] | [place] | [phone] | | [facility] | | [address] | | | - LABORATORY | | | | + + + + + POC Glucose (05/22/2019 11:23 AM PDT) + +-------+ + + + | Component | Value | Ref Range | Performed | Pathologist | | | | | At | Signature | + +-------+ + + + | Glucose, | 94 | 70 - 109 mg/dL | [facility] [...] ST. | [address] | [place], [place] | [phone] | | [facility] | | [address] | | | - [...] [address] | [place] | [phone] | | [facility] | | [address] | | | - LABORATORY | | [...] 4.82 (H) | 0.55 - 1.02 | [facility] | | | | | mg/dL [...] mL/min/1.73m2 | [facility] | | | [place] | RATE,ESTIMATED | | MEDICAL | | | | mL/min/1.77f0Mnxr than | | CENTER - | | [...] [address] | [place] | [phone] | | [facility] | | [address] | | | - LABORATORY | | [...] | | Cells | | M/uL | [facility] | | | | | | MEDICAL | | | | | | CENTER - | | | | | | LABORATORY | | + + + + + + | Hemoglobin | 8.9 (L) | 11.5 - 16.0 | [facility] | | | | | g/dL | [facility] | | | | | [...] + | [facility] | [address] | [place] | [phone] | | [facility] | | [address] | | | - LABORATORY | | [...] [address] | [place] | [phone] | | [facility] | | [address] | | | - LABORATORY | | [...] [address] | [place] | [phone] | | [facility] | | [address] | | | - LABORATORY | | [...] + | [facility] | [address] | [place] | [phone] | | [facility] | | [address] | | | - LABORATORY | | [...] [address] | [place] | [phone] | | [facility] | | [address] | | | - LABORATORY | | [...] | | | N[facility] | | | Sedimentati | | [...] [address] | [place] | [phone] | | [facility] | | [address] | | | - LABORATORY | | [...] [address] | [place] | [phone] | | [facility] | | [address] | | | - LABORATORY | | | | + + + + + Renal Function Panel (05/21/2019 4:15 AM PDT) + + + + + + | Component | Value | Ref Range | Performed | Pathologist | | | | | At | Signature | + + + + + + | Na | 133 (L) | 136 - 145 | [facility] | | | | | mmol/L | [facility] | | | | | | MEDICAL | | | | | | CENTER - | | | | | | LABORATORY | | + + + + + + | K | 5.1 | 3.4 - 5.1 | [facility] | | | | | mmol/L | [...] | 6 (L)Comment: GLOMERULAR | >=60 | [facility] | | | | FILTRATION | mL/min/1.73m2 | . [facility] | | | [place] | RATE,ESTIMATED | | MEDICAL | | | | mL/min/1.82d7Izrw than | | CENTER - | | [...] + | [facility] | [address] | [place] | [phone] | | [facility] | | [address] | | | - LABORATORY | | [...] | | | ng/mL:Procalcitonin | | [facility] | | | | levels below 0.50 [address] | [place] | [phone] | | [facility] | | [address] | | | - LABORATORY | | | | + + + + + Devinime INR (05/21/2019 4:15 AM PDT) + + [...] [address] | [place] | [phone] | | [facility] | | [address] | | | - LABORATORY | | [...] [address] | [place] | [phone] | | [facility] | | [address] | | | - LABORATORY | | [...] [address] | [place] | [phone] | | [facility] | | [address] | | | - LABORATORY | | [...] MS PATHOLOGY | | ARA CAMPOS GENDER: F [...] preparation was | | | performed by [employer] [address] [place] [address] | | | [place] [address] [address] | | | [place] [address]. Professional interpretation was performed | | | by [facility] - [address] | | | . [place] [address] (Paralegal Legal Secretary: Alen Simpson, | | | .; CLIA#:[id number]).8 Diagnostician: Darcie López M.S., | | | CT([facility]), [facility] Production Drilling Machine Operator Diagnostician: Alen Kearney | | | Calvin [...] [address] | [place] | [phone] | | [facility] | | [address] | | | - LABORATORY | | [...] [address] | [place] | [phone] | | [facility] | | [address] | | | - LABORATORY | | [...] | | | | | | Marianela [facility] | | | | [...] + | [facility] | [address] | [place] | [phone] | | [facility] | | [address] | | | - LABORATORY | | | | + + + + + Vitamin B-12 (05/20/2019 9:11 PM PDT) + + + + + + | Component | Value | Ref Range | Performed | Pathologist | | | | | At | Signature | + + + + + + | VITAMIN | 564Comment: DEFICIENT: | 156 - 672 pg/mL | [facility] | | | B-12 | <145 | [address] | [place] | [phone] | | [facility] | | [address] | | | - LABORATORY | | [...] [address] | [place] | [phone] | | [facility] | | [address] | | | - LABORATORY | | [...] | | Screen | | | STM[facility]ela [facility] | | | | | | MEDICAL | | | | | | [place] - | | | | | | [...] | [facility] | | [address] | | | - BLOOD BANK | [...] | | | | | | [employer] | | | | | [...] [address] | [place] | [phone] | | [facility] | | [address] | | | - LABORATORY | | [...] [address] | [place] | [phone] | | [facility] | | [address] | | | - LABORATORY | | [...] [facility] | | | | | | [facility] | | | | [...] [address] | [place] | [phone] | | [facility] | | [address] | | | - LABORATORY | | [...] + | [facility] | [address] | [place] | [phone] | | [facility] | | [address] | | | - LABORATORY | | [...] | | | Total | | | [facility] [...] | bulin Ratio | | | [facility] | | [...] + | [facility] | [address] | [place] | [phone] | | [facility] | | [address] | | | - LABORATORY | | [...] | | | FILTRATION | mL/min/1.73m2 | [facility] | | | [place]IAN | RATE,ESTIMATED | | MEDICAL | | | | mL/min/1.47z3Atkb than | | CENTER - | | [...] | | ine Ratio | | | . [facility] | | | | [...] [address] | [place] | [phone] | | [facility] | | [address] | | | - LABORATORY | | [...] (H) | 35 - 45 mmHg | [facility] | | | | | | STMarianela [address] | [place] | [phone] | | [facility] | | [address] | | | - LABORATORY | | [...] [address] | [place] | [phone] | | [facility] | | [address] | | | - LABORATORY | | [...]
--- OUTSIDE RECORDS SUMMARY | ~2020-03-23 | XMS | Encounter Summary ---
Demographics + + + | Address | [address] | | | [place] [address] | + + + | Home Phone [...] Author | [facility] | | | and [place] | + + + | Organization | [facility] | | | and [place] | + + + | Address | Unknown | + + + | Phone | Unavailable | + + + Support + + + + + | Name | Relationship | Address | Phone | + + + + + | India Tilley | ECON | [address] | | | | | [place], [place] | | | | | [address] | | + + + + + [...] Providers + +------+ + | Care Transportation Planner Name | Role | Phone | + +------+ + | Renato Pierson | PCP | | + +------+ + Encounter Details +--------+ + + + + | Date | Type | Department | Care Team | Description | +--------+ + + + + | 12/24/ | Off-Site | [facility] | Gopi Muñoz | ESRD (end stage | | 2020 | Visit | NEPHROLOGY [address] | M, DO [address] | renal disease) on | | | | [address] | [address] [place] | dialysis (HCC) | | | | [place], [place] | [place], [address] | (Primary Dx) | | | | [address] | [phone] | | | | | [phone] | | | +--------+ + + + [...] encounter Progress Notes Gopi Muñoz DO - 12/25/2019 11:00 AM PDT[Pt not seen]. In [facility] signed by Gopi Muñoz DO at 01/28/2020 5:40 PM PDTdocumented in this [facility] Plan of Treatment Not on filedocumented as [...]
--- OUTSIDE RECORDS SUMMARY | ~2020-03-23 | XMS | Encounter Summary ---
Demographics + + + | Address | [address] | | | [place] [address] | + + + | Home Phone [...] [facility] | | | and Kamaljitana | + + + | Organization | [facility] | | | and [place] | + + + | Address | Unknown | + + + | Phone | Unavailable | + + + Support + + + + + | Name | Relationship | Address | Phone | + + + + + | India Tilley | ECON | [address] | | | | | [place], [place] | | | | | [address] | | + + + + + [...] Team Providers + +------+ + | Care Bakery Supervisor Name | Role | Phone | [...] | | | | renal | [place] [address] | [address] | | | | | disease | | [address] | | | | | (HCC) | CONF[address]ATED | [address] | | | | | Procedures | WAY | [place], | | | | | [place] OFFICE | [place], | [place] [address] | | | | | OUTPATIENT | [place] [address] | Phone: | | | | | VISIT 25 | Phone: | [phone] | | | | | MINUTES [place] | [phone] | Fax: | | | | | ESRD RELATED | Fax: | [phone] | | | | | SVC MONTHLY | [phone] | | | | | | 20&/> YR | | | | | | | OLD 4/> | | | | | | | VISITS | | | +--------+--------+ + + + + Encounter Details +--------+ + + + + | Date | Type | Department | Care Team | Description | +--------+ + + + + | 08/22/ | Off-Site | [facility] | Gopi Muñoz | End stage renal | | 2018 | Visit | NEPHROLOGY [address] | M, DO [address] | disease (HCC) | | | | [address] | [address] [place] | (Primary Dx) | | | | [place] | [place] [address] | | | | | [address] | [phone] | | | | | [phone] | | | +--------+ + + + [...] this encounter Progress Gopi Pugh DO - 08/22/2018 11:30 AM PST[Pt not [...]
--- OUTSIDE RECORDS SUMMARY | ~2020-03-23 | XMS | Encounter Summary ---
Demographics + + + | Address | [address] | | | [place] [address] | + + + | Home Phone [...] | Author | [facility] | | | and Kamaljitana | + + + | Organization | [facility] | | | and [place] | + + + | Address | Unknown | + + + | Phone | Unavailable | + + + Support + + + + + | Name | Relationship | Address | Phone | + + + + + | India Campos | ECON | [address] | | | | | [place], [place] | | | | | [address] | | + + + + + [...] Team Providers + +------+ + | Care Stitchdown Thread Laster Name | Role | Phone | + [...] + + | 09/18/ | Hospital | [facility] | Venkatesh Hagan | Dyspnea, unspecified | | 2019 - | Encounter | [facility] | Juan F Mancera MD | type (Primary Dx); | | | | [address] [place] | [address] | Type 2 diabetes | | 09/21/ | | [place] [address] | [place] | mellitus with stage | | 2020 | | [phone] | [address] | 4 chronic kidney | | | | | | disease, with | | | | | Haris Verde MD | long-term current | | | | | [address] | use of insulin | | | | | [place] | ([facility]); ESRD (end | | | | | [address] | stage renal disease) | | | | | | on dialysis ([facility]); | | | | | [...] | | | | | | dialysis ([facility]); | | | | | | Pedal edema; Acute | | | | | | 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 CXR showed a left-sided pleural effusion approximately 50-60% way up the left chest cavity. She was oxygenating satisfactory on room air, but very dyspneic with movement. I did interrogate the [facility] EMR, called "Luis Felipe," which showed that [...] to attend all prescribed dialysis treatments at [facility], to prevent recurrence of fluid in her chest, pleural effusio ns, and peripheral edema. (All together a total of 55 minutes were spent completing this DC and arranging follow up a ppointments). GOPI MUÑOZ DO Dictated by GOPI MUÑOZ DO 09/25/2019 11:15:27 Transcribed on 09/25/2019 12:35:15 by in job# [id number] Confirmation #: [id number] cc: DYLAN JEWELL [place], [place]. [facility]. documented in thi s encounter Discharge Instructions Instructions Gopi Muñoz DO - . Take 160 mg furosemide, twice daily fr om here. 2. New Refills were sent to [facility]. 3. Keep your old Time at [facility] tomorrow for your HD tx. 4. Ara [...] Gopi Muñoz, - 09/20/2019 8:49 PM PST [place] [address] [place], [place] [id number] PROGRESS NOTE Pt. Name/Age/: Ara Dugan y.o. 1945 Med. Record Number: [id number] Date of admission: 09/18/2019 NEPHROLOGY HPI - [...] HbA1c, and iPTH while she is Inpt. [facility] t[place]uko, Gopi Roman DO - 09/19/2019 9:17 PM PST . [facility] [address] [place] [address] PROGRESS NOTE Pt. Name/Age/: Ara Campos 74 y.o. 1945 Med. Record Number: [id number] Date of admission: 09/18/2019 NEPHROLOGY HPI - [...] amubalation to improve lungs function, as well. [facility] Pollo Cotton, LISA - 09/19/2019 4:35 AM [...] might be different from t he original. [facility]PITAL[facility] H[facility] & PHYSICAL Patient: Ara Campos : 1945: Age: 74 y.o. MedRec: [id number] Admission date: 09/18/2019 Hospital day # : [...] SCREWS; Surgeon: Scott Koroma MD; Location: [facility] MAIN OR HYSTERECTOMY MASTECTOMY 2005 left ear NOSE SURGERY 2008 OTHER SURGICAL HISTORY Right 03/28/2019 Procedure: TUNNEL PICC LINE PLACEMENT-6fr 22cm BARD Power Line; Surgeon: Jose Jiménez MD; Location: [facility] INTERVENTIONAL RADIOLOGY REMOVAL TUNNELED CATHETER Right 04/04/[address] Stephenson SHUNT PLACEMENT/INSERTION N/A 11/08/2017 Procedure: Tunneled Hemodialysis Catheter Placement; Surgeon: Nora Leo MD; Location : [facility] MAIN OR SHUNT PLACEMENT/INSERTION Right 02/04/2018 Procedure: INSERTION SHUNT HEMODIALYSIS W/ PERMACATH; Surgeon: Heather Navarro MD; L ocation: [facility] MAIN OR VEIN SURGERY Right 01/04/2018 Procedure: Right Transposed Basilic Vein to Proximal Radial Artery; Surgeon: Santos Stephenson MD, FACS; Location: [facility] MAIN OR Patient Active Problem List [...] by: Haris Verde MD 09/18/2019 4:56 PM [facility] initial inpatient hospital time greater than 70 minutes with 1/2 spent on face to face dutch e for assessment and plan -Medical Decision Maker Patient. Assessment and Plan were discussed with patient -[facility] Documentation I expect this patient will be hospitalized for 2 or more days and expect the post-hospital plan to be home. -I reviewed relevant imaging, EKG and old records. documented in this encou nter Consult Notes Gopi Muñoz, DO - 09/18/2019 7:59 PM PST [facility] [address] [place] [address] NEPHROLOGY CONSULT Pt. Name/Age/: Ara Campos 74 y.o. 1945 Med. Record Number: [id number] Date of admission: 09/18/2019 Reason for consultation: ESRD and Left pleural effusion Referring Provider: Levi Hagan MD HPI: Asked to follow along on this pleasant, but somewhat eccentric 74 YO female with ESRD who has a documented pattern of intermittently skipping her scheduled hemo dialysis treatments. Today she came to the ER at [facility] complaining of dyspnea. A 2 view CX R showed a moderate size left pleural effusion approximately 50-60% of the left chest cavity . She underwent thoracentesis with removal approximate 1200 cc of orange-colored fluid per radiology.she denies fever, chills, hemoptysis, purulent sputum. O2 sat's have been stable on RA here in the ER. I did open the [employer] EMR, "[employer]," and note that she did have a pause the week of and performed a treatment on 09/06 but did not do an additional treatment until 09/12. I nitially, 2 weeks prior to that appears from the treatment data and [facility] that she was dialyzing only approximately on Mondays (or , 1 treatment/week). I have had personal conv ersations with the Charge Nurse at [facility], Zari Day RN, which have corrobor [...] HD in 018and then was DC to [facility] [place], [place]. Unfortunat brandy, she has had intermittent [...] she has very frequent absenteeism from the [facility]. FAMILY HISTORY: Father: in [...] on replacement therapy. 7. Remote osteomyelitis of I60-C84--agjhljckfrufs patient was lost to follow-up both wit [...] counseling therapy with 2 sets of Renal HISTOLOGY AIDE's, Nursing Staff, her Charge Trey ses, PCP's [...] the Hospitalist Service help with her admission. [facility] CC: [facility], [place], [place]. Brielle Mariah [place] Pozo MD documented in thi s encounter ED Notes Venkatesh Hagan MD - 09/18/2019 6:27 PM PSTFormatting of this note might be d ifferent from the original. [facility] Ara Campos Emergency Department Encounter Note [address] [place] [address] PCP:Dylan Jewell, DIPESH [phone] eMERGENCY dEPARTMENT eNCOUnter [...] SCREWS; Surgeon: Scott Koroma MD; Location: [facility] MAIN OR HYSTERECTOMY MASTECTOMY 2006 left ear NOSE SURGERY 2009 OTHER SURGICAL HISTORY Right 03/28/2019 Procedure: TUNNEL PICC LINE PLACEMENT-6fr 22cm BARD Power Line; Surgeon: Jose Jiménez MD; Location: [facility] INTERVENTIONAL RADIOLOGY REMOVAL TUNNELED CATHETER Right 04/04/[address] Stephenson SHUNT PLACEMENT/INSERTION N/A 11/08/2017 Procedure: Tunneled Hemodialysis Catheter Placement; Surgeon: Nora Leo MD; Location : [facility] MAIN OR SHUNT PLACEMENT/INSERTION Right 02/04/2018 Procedure: INSERTION SHUNT HEMODIALYSIS W/ PERMACATH; Surgeon: Heather Navarro MD; L ocation: [facility] MAIN OR VEIN SURGERY Right 01/04/2018 Procedure: Right Transposed Basilic Vein to Proximal Radial Artery; Surgeon: Santos Stephenson MD, FACS; Location: [facility] MAIN OR CURRENT MEDICATIONS HEAD MIXER Home Medications Medication Sig acetaminophen (TYLENOL) 500 [...] deficits noted, no facial assymetry noted. 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 Matt on-call protection specialist. He recommends diuresis overnight and hemod ialysis tomorrow. Patient's been discussed with interventional radiologist concerning drain ing her left pleural effusion. At this point patient is in guarded condition she is to be a dmitted to the hospitalist further treatment. FINAL IMPRESSION 1. Type 2 diabetes mellitus with stage 4 chronic kidney disease, with long-term current use of insulin ([facility]) 2. ESRD (end stage renal disease) on dialysis ([facility]) 3. Hypervolemia, unspecified hypervolemia type 4. Hypothyroidism, unspecified type Portions of this chart may have been created with [employer] voice recognition software. Occasi onal wrong-word or [...] in a safe manner Outcome: Met This cyanide case hardener went to visit with Ara after PTLucy, states that she would like a 4WW and she thinks it would be beneficial for her to have one. Called [facility] and they have a 4WW available. Went to speak with patient about a 4WW. She states that she had a walker in the past when l eaving the shelter but when she left the shelter she left it there, went back to et it, and they said they didn't have it. She is unsure if that walker was billed under her Medicare. She would like to get the walker from [facility] and her family member in the room [...] will be faxed to [place] once received. [phone]. PLAN: Home with family, resource for 4WW [...] to cues to slow down Level of [place]: supervised Assistive Device: 4 wheeled walker (4WW), 2 wheeled walker (FWW) Distance (feet): 2 x 150 ft Transfers Pt demonstrated transfer to and from 4WW Sit-Stand, Level of [place]: modified independent Stand-Sit, Level of [place]: modified independent Tmk-[id number]-Kfk, Assistive Device: 2 wheeled walker (FWW), 4 wheeled walker (4WW) Safety Issues: balance decreased during turns Impairments: strength decreased, impaired balance Bed Mobility Scoot/Bridge, Level of [place]: modified independent Supine to Sit, Level of [place]: modified independent Sit to Supine, Level of [place]: modified independent Impairments: impaired balance, strength decreased [...] P T tolerated well. l [facility] - 09/21/2019 9:17 AM PST NUTRITION [...] Needs: (based on 80 kg) Kcal needs: 1791-0554 Kcals/day Protein needs:80-90 grams of protein/day Fluid goal:9265-3533 cc fluid per day Nutrition Plan of [...] in 5 days. Available as needed, ext [phone] Assessment: Diet Order: For your reference, the [...] pt willing to participate. Electronically signed by: Allsion Carr PT, 09/20/2019 10:49 AM lan Melanie [...] tells me she gets dialysis MWF in [place]. Currently she has notable swelling in lower [...] lives with her sister Cherrie Bran in [place]. She states there is a ra mp to enter the home. No stairs inside her sisters home. The bathroom has a tub shower. Ara reports she has dialysis on //. She reports she has a had dutch getting to her appo intments and reports the dialysis center "is always screwing up her schedule." Ara reports being seen at [facility] but does not know her providers name. At this time she tells me she does not understand my questions. CM will need to follow up with patient closer to discharge. Patient may benefit from Home Health services thru the [facility] for medication man agement. Per provider [...] she will call for help next time. [facility] Plan of Treatment [...] R?MRN: | | | | | | [id number] | | | [id number] | | | riteri | | | [...] | | | [facility] | | | [place] | | | [facility] | | | [facility] | [facility] | | | [place] | | | y | | | [...] | | | St. | | | [place] | | | y H. | | [...] | | e of | | | [place] | | | | | | [...] | | | St. | | | [place] | | | y H. | | [...] | | | St. | | | [place] | | | y H. | | [...] | | e of | | | [place] | | | | | | mckeon | | | ry | | | artery | | | w/o | | | ang | | | pctrs | | | Oct | | | 8, | | | 2019 | | | [facility] | | | [facility] | [place] [facility] [place] | | | ID | | | [...] | | | St. | | | [place] | | | y H. | | [...] | | | St. | | | [place] | | | y H. | | [...] | | | St. | | | [place] | | | y H. | | [...] | | | St. | | | [place] | | | y H. | | [...] | | | St. | | | [place] | | | y H. | | [...] | | | Center | | | [place] | | | ID | | | [...] | | | N, | | | VISUALIZATION DEVELOPER-C | | | Nurse | | | [...] | | | [facility] | | | [place] | | | | | | HEALTH [...] + | [facility] | [address] | [place] | [phone] | | [facility] | | [address] | | | - LABORATORY | | [...] [address] | [place] | [phone] | | [facility] | | [address] | | | - LABORATORY | | [...] | | | | | mg/dL | [facility] | | | | | | MEDICAL | | | | | | CENTER - | | | | | | LABORATORY | | + + + + + + | eGFR if not | 8 (L)Comment: GLOMERULAR | >=60 | [facility] | | | | FILTRATION | mL/min/1.73m2 | [facility] | | | SAMMARINESE | RATE,ESTIMATED | | MEDICAL | | | | mL/min/1.84o5Bzqs than | | CENTER - | | [...] 7.5 (L) | 8.7 - 10.4 | [facility] | | | | | mg/dL | [facility] | | | | | | [...] [address] | [place] | [phone] | | [facility] | | [address] | | | - LABORATORY | | [...] + | [facility] | [address] | [place] | [phone] | | [facility] | | [address] | | | - LABORATORY | | [...] + | [facility] | [address] | [place] | [phone] | | [facility] | | [address] | | | - LABORATORY | | [...] ST. | [address] | [place], [place] | [phone] | | [facility] | | [address] | | | - LABORATORY | | | | + + + + + XR Chest 2 Vws (09/20/2019 11:22 AM [facility]) + + | Specimen | + + [...] + | Julian, Rad Results In - 09/20/2019 12:02 PM [...] + | [facility] | [address] | [place] | [phone] | | [facility] | | [address] | | | - LABORATORY | | [...] + | [facility] [facility] | [address] | [place] | [phone] | | [facility] | | [address] | | | - LABORATORY | | [...] [address] | [place] | [phone] | | [facility] | | [address] | | | - LABORATORY | | [...] [address] | [place] | [phone] | | [facility] | | [address] | | | - LABORATORY | | [...] ST. | [address] | [place], [place] | [phone] | | [facility] | | [address] | | | - LABORATORY | | [...] | mL/min/1.73m2 | [facility] | | | SAMMARINESE | RATE,ESTIMATED | | MEDICAL | | | | mL/min/1.39r4Ilvj than | | CENTER - | | [...] | [address] | [address] | [place] | [phone] | | [facility] | | [address] | | | - LABORATORY | | [...] [address] | [place] | [phone] | | [facility] | | [address] | | | - LABORATORY | | [...] [address] | [place] | [phone] | | [facility] | | [address] | | | - LABORATORY | | [...] [address] | [place] | [phone] | | [facility] | | [address] | | | - LABORATORY | | [...] [address] | [place] | [phone] | | [facility] | | [address] | | | - LABORATORY | | [...] [address] | [place] | [phone] | | [facility] | | [address] | | | - [...] [address] | [place] | [phone] | | [facility] | | [address] | | | - LABORATORY | | [...] mL/min/1.73m2 | [facility] | | | SAMMARINESE | RATE,ESTIMATED | | MEDICAL | | | | mL/min/1.70q4Rkuh than | | CENTER - | | [...] [address] | [place] | [phone] | | [facility] | | [address] | | | - LABORATORY | | [...] ST. | [address] | [place] | [phone] | | [facility] | | [address] | | | - LABORATORY | | [...] + | [address] | [address] | [place] | [phone] | | [facility] | | [address] | | | - LABORATORY | | [...] + | [facility] | [address] | [place] | [phone] | | [facility] | | [address] | | | - LABORATORY | | [...] [address] | [place] | [phone] | | [facility] | | [address] | | | - LABORATORY | | [...] ST. | [address] | [place] | [phone] | | [facility] | | [address] | | | - LABORATORY | | [...] ST. | [address] | [place], [place] | [phone] | | [facility] | | [address] | | | - LABORATORY | | [...] MUSE | | | ION TEXT | MA with premature | | | | | [...] | | | | KEN ELLISON MD ([id number]) | | | | | | on [...] ST. | [address] | [place] | [phone] | | [facility] | | [address] | | | - LABORATORY | | [...] ST. | [address] | [place], [place] | [phone] | | [facility] | | [address] | | | - LABORATORY | | [...] [address] | [place] | [phone] | | [facility] | | [address] | | | - LABORATORY | | [...] [address] | [place] | [phone] | | [facility] | | [address] | | | - LABORATORY | | [...] method in use as of | | [facility] | | | | November 09, 2018. [...] ST. | [address] | [place], [place] | [phone] | | [facility] | | [address] | | | [...] + | [address] | [address] | [place] | [phone] | | [facility] | | [address] | | | - LABORATORY | | [...] | | | | | | [employer] | | | | | [...] + | [address] | [address] | [place] | [phone] | | [facility] | | [address] | | | - LABORATORY | | [...] | | | FILTRATION | mL/min/1.73m2 | [facility] | | | SAMMARINESE | RATE,ESTIMATED | | MEDICAL | | | | mL/min/1.64c8Pcuf than | | CENTER - | | [...] | | | | | mg/dL | [facility] | | | | | | [...] + | [facility] | [address] | [place] | [phone] | | [facility] | | [address] | | | - LABORATORY | | [...] [address] | [place] | [phone] | | [facility] | | [address] | | | - LABORATORY | | [...] systolic and diastolic CHF, NYHA class 4 ([facility]) | + + | Essential hypertension Unspecified essential hypertension | + + | DM (diabetes mellitus), type 2 ([facility]) Type II or unspecified type diabetes mellitus | | without mention of complication, not stated as uncontrolled | + + | Non-compliance Personal history of noncompliance with medical treatment, presenting | | hazards to health | + + | Cerebral artery occlusion with cerebral infarction ([facility]) Unspecified cerebral artery | | occlusion with [...] | | | | DIALYSIS - ONCE, [facility] 09/19/19 at | | | | | [...]
--- OUTSIDE RECORDS SUMMARY | ~2020-03-23 | XMS | Encounter Summary ---
Demographics + + + | Address | [address] | | | [place] [address] | + + + | Home Phone [...] + | Author | [facility] | | | and Kamaljitana | + + + | Organization | [facility] | | | and [place] | + + + | Address | Unknown | + + + | Phone | Unavailable | + + + Support + + + + + | Name | Relationship | Address | Phone | + + + + + | India Tilley | ECON | [address] | | | | | [place], [place] | | | | | [address] | | + + + + + [...] Team Providers + +------+ + | Care Elastic Cutter Name | Role | Phone | + +------+ + PCP | Unavailable | + +------+ + Encounter Details +--------+ + + + + | Date | Type | Department | Care Team | Description | +--------+ + + + + | 12/05/ | [facility] | [facility] | Carlos Sandoval | | | 2007 | Encounter | MED CTR XRAY [address] [place] [address] [place] | | | | | [place] | [place], [place] | | | | | [place] [address] | [address] | | | | | [phone] | | | +--------+ + + + [...]
--- OUTSIDE RECORDS SUMMARY | ~2020-03-23 | XMS | Encounter Summary ---
Demographics + + + | Address | [address] | | | [place] [address] | + + + | Home Phone [...] Author | [facility] | | | and [place] | + + + | Organization | [facility] | | | and [place] | + + + | Address | Unknown | + + + | Phone | Unavailable | + + + Support + + + + + | Name | Relationship | Address | Phone | + + + + + | [place] Tilley | E[place] | [address] | | | | | [place], [place] | | | | | [address] | | + + + + + [...] Team Providers + +------+ + | Care Newspaper Editor Managing Name | Role | Phone | + +------+ + | Renato Pierson | PCP | | + +------+ + Reason for Visit + +--------+ + | Reason | Onset | Comments | | | Date | | + +--------+ + | Appointment | 06/27/ | schedule | | | 2019 | | + +--------+ + Encounter Details +--------+ + + + + | Date | Type | Department | Care Team | Description | +--------+ + + + + | 06/27/ | Telephone | [facility] | Ta Melendez, | Appointment | | 2019 | | INTERVENTIONAL | [address] | (schedule) | | | | RADIOLOGY [address] | [address] | | | | | [place] | [place] [address] | | | | | [place] | [phone] | | | | | [address] | | | | | | [phone] | | | +--------+ + + + [...] encounter Miscellaneous Notes Telephone Encounter - Heather Fox, Video Engineer - 07/07/2019 1:47 PM PDTCalle d pt back. Scheduled pt for 07/13 at 11:00am start elephone Encounter - Annette Davis I - 1:14 PM PDTDeanna, is calling regarding Appointment (schedule) and would like a call back. Additional Call Details: States patient has been waiting to be scheduled per order on [employer] . Please call patient to schedule. If this is a symptom based call, was patient offered triage? Not Applicable If this is a symptom based call and you were unable to immediately transfer the call to a raul campos commutator assembler was caller made aware that if at any time she feels it is an emergency they sh ould call 911 or go to the nearest emergency room? not applicable documented in this encounter Plan of Treatment [...]
--- OUTSIDE RECORDS SUMMARY | ~2020-03-23 | XMS | Encounter Summary ---
Demographics + + + | Address | [address] | | | [place] [address] | + + + | Home Phone [...] Author | [facility] | | | and Kamaljitana | + + + | Organization | [facility] | | | and [place] | + + + | Address | Unknown | + + + | Phone | Unavailable | + + + Support + + + + + | Name | Relationship | Address | Phone | + + + + + | India Tilley | ECON | [phone] | | | | | [place], [place] | | | | | [address] | | + + + + + [...] Team Providers + +------+ + | Care Mold Maker Name | Role | Phone | [...] | | | | edema, left | [phone] | | | | | | | Phone: | | | | | | Non-occlusiv | [phone] | | | | | | e thrombus | Fax: | | | | | | Poor social | [phone] | | | | | | situation [...] + + | 01/17/ | Hospital | [facility] | Hair Ramos, | ESRD on dialysis | | 2019 - | Encounter | [facility] | [address] | ([facility]) (Primary Dx); | | | | [address] | [place] | Hypoxia; Leg edema, | | 01/19/ | | [place] [address] | [phone] | left; Non-occlusive | | 2019 | | [phone] | | thrombus; Poor | | | | | Haris Segal MD | social situation; | | | | | [address] | ESRD (end stage | | | | | [facility] [place] | renal disease) on | | | | | [id number] | dialysis ([facility]); | | | | | | Anemia due to | | | | | | chronic kidney | | | | | | disease, on chronic | | | | | | dialysis ([facility]); | | | | | | Hypervolemia, [...] Felix MD - 01/20/2020 6:20 PM PDT [place], [place] HOSPITALIST DISCHARGE SUMMARY Pt. Name/Age/: Estefani [...] mouth every 8 hours as needed. aka: [facility] HOSPITAL COURSE: Please refer to the H&P for full details and the most recent rounding rounding (progress) n ote. In short Mrs Tilley is a 74 y/o lady with pmhx of HTN, DM, GERD, hypothyroidism, anemia, ESRD on H D via RUE AV fistula, chronic discitis/osteomyelitis at T11-T12 who [facility] with nonhealing left lower extremity wound, she [...] by: Kd Felix MD, 01/20/2020 6:20 PM [facility] Portions of this chart may have been created with Moblication voice recognition software. Occasi onal wrong-word or [...] of this encounter Progress Notes Bry Lucero, SHAREPOINT NET DEVELOPER - 01/20/2020 2:34 PM PDT 01/20/20 1432 Oxygen Therapy Home O2 eval performed? yes Resting on RA (%) 87 Resting on O2 (%)(add L/Min in comment) 94 Patient not walking without PT help. Will need O2 at 1 l/m at rest 05/04. Electronically sig javi by Bry Lucero, SHAREPOINT NET DEVELOPER at 01/20/2020 2:35 PM PDTFaOrly jensen ARNP - 01/19 11:37 AM PDT [facility] NEPHROLOGY PROGRESS NOTE Patient: Estefani Tilley : 1945 Hospital Day # 2 ASSESSMENT/PLAN 1. ESRD on hemodialysis. Access: Right upper arm AV fistula. Pt had been dialyzing in [place], last treatment on 01/16/2020. On wait list for dialysis at [facility]. Needing placement at another dialysis facility, [facility]3] or [facility]. History of intermittent non adherence to dialysis [...] may have bee n changed while in [place]. Amlodipine 5 mg BID, furosemide 160 mg [...] KAYLA Abdi Electronically signed: 01/20/2020 11:38 AM [facility] NEPHROLOGY Kd Burt MD - 01/19/2020 3:52 PM PDT [facility] JA [place] HOSPITALIST PROGRESS NOTE Patient: Estefani Tilley : 1945: Age: 74 y.o. MedRec: [id number] Admission date: 01/18/2020 Hospital day # : 1 Physician author: Kd Felix MD Today: 01/19/2020 Assessment and Hospital Course Mrs Tilley is a 74 y/o lady with pmhx of HTN, DM, GERD, hypothyroidism, anemia, ESRD on H D via RUE AV fistula, chronic discitis/osteomyelitis at T11-T12 [facility], she [...] She is to go to dialysis in [place], last HD 01/16/2020 Nephrology following in-house Will [...] Procedure Component Value Units Date/Time Culture, MRSA [[id number]] (Normal) Collected: 01/18/202057 Order Status: Completed Lab Status: Final result Updated: 01/19/20 1246 Specimen: Tissue from Nares Culture Negative for MRSA by chromogenic agar method. Coronavirus (COVID-19) NAAT [[id number]] (Normal) Collected: 01/18/201855 Order Status: Completed Lab Status: Final result Updated: 01/19/20 1349 Specimen: Tissue from Nasopharynx SARS coronavirus 2 NAAT Not Detected Narrative: See Scanned Report [facility] STAT instructions for COVID-19 tracking [[id number]] Collected: 01/18/201855 Order Status: Completed Lab Status: [...] this chart may have been created with Moblication voice recognition software. Occasi onal wrong-word or [...] Anemia, Arthritis, Back p ain, Breast cancer ([facility]), Cancer ([facility]), Diabetes ([facility]), Heart disease, Hemodialysis patient ([facility]), History of blood clots, Hypercholesteremia, Hypertension, Hypothyroidism, Renal failu re, Seasonal allergies, and Stroke (cerebrum) ([facility]). . Risk factors for MDR organisms includ e recent healthcare contact. HPI: presents to ER with hypoxia and shortness of breath. She c/o left leg wound and pain w ith ambulation. Left leg medial ulcer started after she was transferred from to [place] Oct 2019. Pt had a prolonged hospitalization at [facility] in [place] for left l terrie empyema. Pt was transferred to [facility] on 10/31/2019, and underwent VATS on 10/31/2019. Pt w as discharged on 11/17/2019 to a local SNF in [place]. She was discharged from [facility] 2 days prior to admit and [...] Procedure Component Value Units Date/Time Culture, MRSA [[id number]] Collected: 01/18/202057 Order Status: Sent Lab Status: In process Updated: 01/18/202124 Specimen: Tissue from Nares [facility] STAT instructions for COVID-19 tracking [[id number]] Order Status: Canceled Lab Status: No result Specimen: Tissue from Nasopharynx Coronavirus (COVID-19) NAAT [[id number]] Collected: 01/18/201855 Order Status: Sent Lab Status: In process Updated: 01/19/20757 Specimen: Tissue from Nasopharynx [facility] STAT instructions for COVID-19 tracking [[id number]] Collected: 01/18/201855 Order Status: Sent Lab Status: [...] Prior to admission dialysis schedule: 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 Azael reported that Estefani is part of the [place], two days ago she was r eleased from [facility], [facility]. He noticed cordova on her legs and her complaint s of leg pain and the pain has gotten worse where it is hard for her to walk. She was on Ox ygen while at the [facility]. Follow Up: Azael plans to return home and find POA documentation. Chaplains will continue to provide communication, emotional and spiritual support. documented in this encounter H&P Notes Haris Segal MD - 01/18/2020 6:23 PM PDTFormatting of this note might be different from t he original. [facility] HOSPITALIST HISTORY & PHYSICAL Patient: Estefani Tilley : 1945: Age: 74 y.o. MedRec: [id number] Admission date: 01/18/2020 Hospital day # : [...] compl iance/empyema, presented on 01/18/2020, discharged from [facility] 2 days ago, driven in by son, c/o left leg wound and pain w/ ambulation, left Leg medial ulcer started a fter she was transferred from [place] 10/2019 to [place] for empyema management. Painful to ambulate on. On 10/30/2019, with loculated empyema/influenza A, she was transferred from [place] ED t o [place], found to have strep bovis empyema and [...] 11/15/2019. She was discharged to SNF in [place] 11/17/2019 (16mi from [place]). She was on oxygen while at SNF per son. She indicated to CM that she did not go to HD for s everal days but indicated during hospitalist evaluation that she went a day or 2 ago. Mental Health Professional/CM spoke with son who indicated leg pain, [...] Hypothyroidism Renal failure Seasonal allergies Stroke (cerebrum) ([facility]) Past Surgical History: Procedure Laterality Date APPENDECTOMY EYE SURGERY 2009 HIP SURGERY Right 12/04/2018 Procedure: ORIF HIP W/CANNULATED SCREWS; Surgeon: Scott Koroma MD; Location: [facility] MAIN OR HYSTERECTOMY MASTECTOMY 2006 left ear NOSE SURGERY 2009 OTHER SURGICAL HISTORY Right 03/28/2019 Procedure: TUNNEL PICC LINE PLACEMENT-6fr 22cm BARD Power Line; Surgeon: Jose Jiménez MD; Location: [facility] INTERVENTIONAL RADIOLOGY REMOVAL TUNNELED CATHETER Right 04/04/[address] Stephenson SHUNT PLACEMENT/INSERTION N/A 11/08/2017 Procedure: Tunneled Hemodialysis Catheter Placement; Surgeon: Nora Leo MD; Location : [facility] MAIN OR SHUNT PLACEMENT/INSERTION Right 02/04/2018 Procedure: INSERTION SHUNT HEMODIALYSIS W/ PERMACATH; Surgeon: Heather Navarro MD; L ocation: [facility] MAIN OR VEIN SURGERY Right 01/04/2018 Procedure: Right Transposed Basilic Vein to Proximal Radial Artery; Surgeon: Santos Stephenson MD, FACS; Location: [facility] MAIN OR Patient Active Problem List Diagnosis [...] by: Haris Segal MD 01/18/2020 6:23 PM [facility] initial inpatient hospital time exceeds 70 minutes with 1/2 spent on face to face time for assessment and plan and coordinating care -Medical Decision Maker Patient. Assessment and Plan were discussed with patient -[facility] Documentation I expect this patient will be hospitalized for 2 or more days and expect the post-hospital plan to be home. -I reviewed relevant imaging, EKG and old records. documented in this enc nter Consult Notes Darlin Moseley MD - 01/19/2020 10:43 AM PDTFormatting of this note might be different f rom the original. [facility] NEPHROLOGY CONSULTATION Patient: Estefani Tilley : 1945 DATE OF CONSULTATION: 01/19/2020 REASON FOR CONSULTATION: End-stage renal disease, on hemodialysis REFERRING PHYSICIAN: Dr. Haris Segal MD PRIMARY CARE PHYSICIAN: Dr. Renato Pierson, DIPESH ASSESMENT AND PLAN 1. ESRD on hemodialysis since Oct 2017. Access: Right upper arm AV fistula in place. Pt had been dialyzing in [place], last treatment on 01/16/2020. Hyperkalemia, hypervolemia. -HD t=5 hr, 2K, BFR 300 mL/min, DFR 7 L/hr, UF goal 2.5-3 Liters. -Will need to arrange for outpatient HD in the area, if pt plans to stay in the area. Will d/w sample case porter. Pt is on the waitlist for [facility] (#3 on waitlist per clinic segundo adamson). [...] note, pt had a prolonged hospitalization at [facility] in [place] f or left lung empyema. Pt was transferred to [facility] on 10/31/2019, and underwent VATS on 020. Her culture grew Streptococcus bovis. During her hospitalization, pt was seen by emily lu nephrology, infectious disease, CT surgery, pulmonary, and vascular surgery. Pt was d ischarged on 11/17/2019 to a local SNF in [place]. Pt is unable to say when she was last dialyzed. Per Care Everywhere records, pt dialyzed o n 01/16/2020 at [facility]. Her post-weight was 74.5 kg. Pt reports shortness of breath, but denies cough. Pt denies chest pain, abdominal pain, na usea, vomiting. Pt reports a non-healing wound in her left lower leg; pt reports it has be there since Oct 2019. Pt is on the waitlist (#3) for [facility] clinic. Pt states she is living in a shelter in [place]. Pt states the address is in her [...] W/CANNULATED SCREWS; Surgeon: Scott Koroma MD; Location: [facility] MAIN OR HYSTERECTOMY MASTECTOMY 2006 left ear NOSE SURGERY 2009 OTHER SURGICAL HISTORY Right 03/28/2019 Procedure: TUNNEL PICC LINE PLACEMENT-6fr 22cm BARD Power Line; Surgeon: Jose Jiménez MD; Location: [facility] INTERVENTIONAL RADIOLOGY REMOVAL TUNNELED CATHETER Right 04/04/[address] Stephenson SHUNT PLACEMENT/INSERTION N/A 11/08/2017 Procedure: Tunneled Hemodialysis Catheter Placement; Surgeon: Nora Leo MD; Location : [facility] MAIN OR SHUNT PLACEMENT/INSERTION Right 02/04/2018 Procedure: INSERTION SHUNT HEMODIALYSIS W/ PERMACATH; Surgeon: Heather Navarro MD; L ocation: [facility] MAIN OR VEIN SURGERY Right 01/04/2018 Procedure: Right Transposed Basilic Vein to Proximal Radial Artery; Surgeon: Santos Stephenson MD, FACS; Location: [facility] MAIN OR FAMILY HISTORY Family History Problem [...] file Gets together: Not on file Attends jain service: Not on file Active member of [...] Moseley MD Electronically signed: 01/19/2020 10:43 AM [facility] NEPHROLOGY documented in this encounter ED Notes Hair Ramos MD - 01/18/2020 3:32 PM PDTFormatting of this note might be different f rom the original. [facility] Estefani Tilley EMERGENCY DEPARTMENT ENCOUNTER NOTE [address] [place] [address] PCP:DIPESH Mccollum X2500 DIAGNOSIS: ICD-10-CM ICD-9-CM 1. ESRD on dialysis ([facility]) N18.6 585.6 Z99.2 V45.11 2. Hypoxia R09.02 799.02 3. Leg edema, left R60.0 782.3 4. Non-occlusive thrombusAcute I82.90 453.9 5. Poor social situation Z65.9 V62.9 6. ESRD (end stage renal disease) on dialysis ([facility]) N18.6 585.6 Z99.2 V45.11 7. Anemia due to chronic kidney disease, on chronic dialysis ([facility]) N18.6 585.6 D63.1 285.21 Z99.2 V45.11 8. Hypervolemia, unspecified hypervolemia type E87.70 276.69 9. Essential hypertension I10 401.9 CHIEF COMPLAINT: Chief Complaint Patient presents with Leg Pain ED Room: 445/445-01 01/19/2020 COLLEEN Tilley is a 74 y.o. female who presents to the Emergency Department presents to [facility] ED with left leg swelling increased shortness [...] was discharged from a care facility in [facility] and has been at home a few [...] time after discharge from the hospitalization in [facility]. She is unsure. No fevers no [...] of Anemia, Arthritis, Back pain, Breast cancer ([facility]) , Cancer ([facility]), Diabetes ([facility]), Heart disease, Hemodialysis patient ([facility]), History of blood clots, Hypercholesteremia, Hypertension, Hypothyroidism, Renal failure, Seasonal allergies, and Stroke (cerebrum) ([facility]). The patient has a past surgical history that includes Mastecto my; Nose surgery; Eye surgery; Shunt Placement/Insertion (N/A, 11/08/2017); Hysterectomy; Get endectomy; Vein Surgery (Right, 01/04/2018); Shunt Placement/Insertion (Right, 02/04/2018); RE MOVAL TUNNELED CATHETER (Right, 04/04/2018); hip surgery (Right, 12/04/2018); and other surgi yancy history (Right, 03/28/2019). 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 [...] longer present Confirmed by KEN ELLISON MD ([id number]) on 01/19/2020 6:23:18 AM IMAGING STUIDES (X-Rays [...] were reviewed along with EMS notes and senior care record s if applicable. (See chart for [...] 5,000 Units (5,000 Units Subcutaneous Given 01/18/20 3076) acetaminophen (TYLENOL) tablet 650 mg (650 mg Oral Given 01/19/20 0028) fentaNYL (PF) injection 25 mcg (25 mcg [...] IVPB (1 g Intravenous New Bag 01/18/20 3806) Vitals: 01/19/20 1217 01/19/20 1232 01/19/20 1247 01/19/20 1302 BP: (!) 167/98 153/73 163/70 167/78 Pulse: 64 61 63 62 Resp: Temp: TempSrc: SpO2: 95% 97% 97% 98% Weight: Height: FINAL IMPRESSION ICD-10-CM ICD-9-CM 1. ESRD on dialysis ([facility]) N18.6 585.6 Z99.2 V45.11 2. Hypoxia R09.02 799.02 3. Leg edema, left R60.0 782.3 4. Non-occlusive thrombusAcute I82.90 453.9 5. Poor social situation Z65.9 V62.9 6. ESRD (end stage renal disease) on dialysis ([facility]) N18.6 585.6 Z99.2 V45.11 7. Anemia due to chronic kidney disease, on chronic dialysis ([facility]) N18.6 585.6 D63.1 285.21 Z99.2 V45.11 8. Hypervolemia, unspecified hypervolemia type E87.70 276.69 9. Essential hypertension I10 401.9 Current Discharge Medication List Hair Ramos. This document has been prepared with a voice recognition system. The possibility of "sound alike" carpet or rug layer helper errors, addition and/or deletions may occur. If [...] after being transferred by life flight to [place]. documented in this encounter Miscellaneous Notes Plan of Sharon Vicente RN - 01/21/2020 8:52 AM PDTDischarge planning note: This AM this CM received call from HORACIO Navarro RN at [facility], needing to confirm patient's PCP, avani shah per JENNIFER Hameed's note, it is Dr. Rosales at [facility]. Gave Ramon this MD update wh en [...] this patient. Faxed both to fax # [phone] as requested. Fax confirmation confirmed. Electronically signed [...] for discharge today. has spoken with the supervisor veneer and she will be contacting the patient on Wednesday to let her know where and when her chair time is scheduled near or in [place]. Patient is in agreement to go today and will be calling her son, Indu, to come and transp ort her home. This CM also spoke with Lisa Ibarra, patient's caregiver where patient lives in [facility] and she is ready for her to return home as well. Her phone # is [phone]. Confirmed with Lisa that she is her CG 05/04. Let her know that patient will be coming with new 02 and 4WW and [facility] will be setting up t he concentrator today at home. Let her know that the supervisor veneer will be calling patient Wednesday AM to let her know when/ where her chair time will be for her HD on Wednesday. Home 02 eval done and she is needing new home 02 set up. Patient is fine with using any company to get her 02. Preference form was signed for [facility] for both DME and 02 and placed in ghost chart. This CM contacted Jose, at [facility], who states that they also service [place] and will set up her concentrator there [...] come and get her. He lives in [facility]. Faxed both the DME order and the 02 order to [facility]. Fax transmission confirmed and placed in ghost chart. Faxed the HH order over to [facility] fax# [phone], awaiting for the supply and distribution manager RN to call is gag writer. Ramon, supply and distribution manager RN with [facility] called and let her know of [...] her son, will be transporting her home. [employer] will be contacting the patient Wednesday AM to let her know where/when her HD melany ir has been set up near/in [place]. Patient also will be having HH RN PT at home thru [facility] HH starting approx this next . Electronically [...] mobilize at level safe for home discharge, [facility] indicating significant imp airment with basic functional [...] newly resi ding w/ a caregiver in [place],. Unknown what level of care is provided. Living Environment/Accessibility: Lives With: other (see comments)(Reportedly newly residing w/ a caregiver in [place]. ) Living Arrangements: apartment Home Accessibility: stairs [...] weakness/decreased balance/poor overall safety awareness Level of [place]: contact guard assist, verbal cues required Assistive Device: 2 wheeled walker (FWW) Distance (feet): 5 x 2 Gait Deviations: pamela decreased, double stance time increased, limb motion velocity decr eased, step length decreased, stride length decreased, stride width increased, ykeea-gh-scwa ce ratio decreased, egu-oy-iguzt clearance decreased, weight-shifting ability decreased Safety Issues: [...] chair d/t lower height Bed-Chair, Level of [place]: contact guard assist, set up required, verbal cues requir ed Chair-Bed, Level of [place]: not tested(pt up in chair at end of session) Mbj-Rszsp-Gor, Assistive Device: 2 wheeled walker (FWW) Sit-Stand, Level of [place]: minimal assist (75% patient effort), 2 person assist requ ired, set up required, verbal cues required, tactile cues required Stand-Sit, Level of [place]: contact guard assist, verbal cues required Etc-Jkmkm-Tkd, Assistive Device: 2 wheeled walker (FWW) Safety [...] self-limiting, suspicious of therapists' motives and 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" ROM L LE ROM: not formally tested, observed to be grossly WFL for activities performed R LE ROM: not formally tested, observed to be grossly WFL for activities performed Strength not formally tested, generalized weakness/deconditioning observed during functional activit ies [facility] BASIC MOBILITY Turning from your back to [...] Mobility Six Click AM-PAC: 15 Completed [facility] Activity Measure for Post Acute Care (AM-PAC) [...] STG Status new at 01/20/2020 1155 STG [place] Level modified independent at 01/20/2020 1155 STG Assistive Device none at 01/20/2020 1155 Eua-Ycaut-Iqa Goal Most Recent Value STG Status new at 01/20/2020 1155 STG [place] Level modified independent at 01/20/2020 1155 STG Assistive Device 4 wheeled walker (4WW) at 01/20/2020 1155 Gait Goal Most Recent Value STG Status new at 01/20/2020 1155 STG [place] Level modified independent at 01/20/2020 1155 STG [...] newly resi ding w/ a caregiver in [place],. Unknown what level of care is provided. Living Environment/Accessibility: Lives With: other (see comments)(Reportedly newly residing w/ a caregiver in [place]. ) Living Arrangements: apartment Home Accessibility: stairs [...] in any actitivity. LB Dressing, Level of Carl[place]: stand by assist LB Dressing Assess/Train, Position: [...] STG Status new at 01/20/2020 1154 STG [place] Level supervised at 01/20/2020 1154 LB Dressing Goal Most Recent Value STG Status new at 01/20/2020 1154 STG [place] Level stand by assist at 01/20/2020 1154 Toileting Goal Most Recent Value STG Status new at 01/20/2020 1154 STG [place] Level stand by assist at 01/20/2020 1154 Toilet Transfer Goal Most Recent Value STG Status new at 01/20/2020 1154 STG [place] Level stand by assist at 01/20/2020 1154 OT Time Calculation OT Additional Treatment Time: Co-treatment OT Co-treatment Start Time: 1120 OT Co-treatment Stop Time: 1155 OT Co-treatment Total Time: 35 OT Total Treatment Time: 35 Timed TX Code Minutes: 0 Electronically signed by: Darlin López OT, 01/20/2020 2:56 PM lan of [facility] - Ashli Del Castillo RN - 01/19/2020 6:38 PM PDTPatient alert and oriented x4, pain treated with P RN fentanyl. HD today. Using call light for assistance. Good appetite at dinner. COVID negat lashawn. Needs help repositioning. 6: 40 PM PDTPlan of [facility] - Bry Lucero RRT - 01/19/2020 5:37 PM PDTPatient was admitte d for cellulitis, ESRD, R/O COVID. Hx of CKD, CHF, DM. NO CPAP hx. COVID test came back nega tive. On 2 l/m nasal cannula, sating mid but on dialysis today. BS clear and diminished. No prn neb treatments/inhalers needed/given. Will continue to monitor and treat as needed. t lan of [facility] - Cara Jackson MSW - 01/19/2020 3:08 PM PDTPhone call to [facility] regarding pat ient. Patient's PCP is Dr. Rosales, spoke with him regarding patient. He states that she hasn't been at the clinic since Sep 2019, was at a [facility] in [facility]. He states th at the [facility] staff have been trying to get in touch with patient for an appointm ent since she just returned to the area. Phone call to Emili Esteban [facility] safety coordinator, she states patient has a hist ory of smoking, homelessness-usually stays on a couch at family's house, not sure where she is currently living. Phone call to [facility] in [place], , spoke with Emili who confirmed patient was a resident there from 11/17/2019-01/16/2020, states patient had called her son and left AMA. Phone call into patient's room, she isn't wanting to speak at the moment. Dr. Flako Moseley notified this gag writer that patient usually gets dialysis in [place], but is o n a waiting list, is third in line and will need dialysis at a different clinic. In to see patient, has been COVID ruled out, to discuss discharge planning. Patient is irri table with the visit. Patient states she lives with Lisa Ibarra ([phone] in [place]) and that she plans to return there. Discussed with patient needing a dialysis clinic, patient states Lisa will take her, wherever she needs dialysis. Patient s tates she needs home oxygen at Lisa's house. Patient provided this gag writer with Lisa's in formation. Phone call to Lisa, she confirmed that the patient would be living with her, patient need ed home oxygen. Lisa states she can poultry picking machine tender the oxygen through [facility] if she had a prescription. Discussed with Lisa dialysis and needing transportation to [place] or [facility], Lisa stated she can give the patient a ride for dialysis to either clinic as long as it was after 10:00am. Phone call to Jer , to set up a dialysis time in [place] or [facility], spoke with Margaret. Margaret applied for a dialysis time online for patient, reference #[id number]. Margaret states they will make a request for medical records to the [facility] records department for their physician to review. Contact information given for the ospital for Margaret to provide a follow up call. Margaret states CM can contact Marilynn [phone] for a status on the dialysis time in [place]. Plan: Home with caregiver Lisa when medically [...] questions. Estefani reports she was [facility] from [facility] in November and went to a m[facility]. She can no t tell me which [...] reports he picked is mom up from [facility] recently. He reports she w as discharged without oxygen. He reports they told the facility she would have a methods specialist engineer w hen she gets home. He does not have care lined up yet. Azael went on to tell me that [facility] reba Mao will have to pay [...] 1 | | | | e | ([facility]) Hypoxia Leg | Occurrences starting | | | | | edema, left | 01/20/2020 until | | | | | Non-occlusive | 01/20/2020 | | | | | thrombus Poor | | | | | | social situation | | | | | | ESRD (end stage | | | | | | renal disease) on | | | | | | dialysis ([facility]) | | | | | | Anemia due to | | | | | | chronic kidney | | | | | | disease, on chronic | | | | | | dialysis ([facility]) | | | | | | Hypervolemia, [...] 1 | | | | e | ([facility]) Hypoxia Leg | Occurrences starting | | | | | edema, left | 01/20/2020 until | | | | | Non-occlusive | 01/20/2020 | | | | | thrombus Poor | | | | | | social situation | | | | | | ESRD (end stage | | | | | | renal disease) on | | | | | | dialysis ([facility]) | | | | | | Anemia due to | | | | | | chronic kidney | | | | | | disease, on chronic | | | | | | dialysis ([facility]) | | | | | | Hypervolemia, | | | | | | unspecified | | | | | | hypervolemia type | | | | | | Essential | | | | | | hypertension Anemia | | | | | | due to end stage | | | | | | renal disease ([facility]) | | | | | | Secondary | | | | | | hyperparathyroidism | | | | | | ([facility]) Cellulitis of | | | | | [...] | Ordered: 01/20/2020 | | Health (not [facility] | Referral | e | ([facility]) Hypoxia Leg | | | Wall) | | | edema, left | | | | | | Non-occlusive | | | | | | thrombus Poor | | | | | | social situation | | | | | | ESRD (end stage | | | | | | renal disease) on | | | | | | dialysis ([facility]) | | | | | | Anemia due to | | | | | | chronic kidney | | | | | | disease, on chronic | | | | | | dialysis ([facility]) | | | | | | Hypervolemia, | | | | | | unspecified | | | | | | hypervolemia type | | | | | | Essential | | | | | | hypertension Anemia | | | | | | due to end stage | | | | | | renal disease ([facility]) | | | | | | Secondary | | | | | | hyperparathyroidism | | | | | | ([facility]) Cellulitis of | | | | | [...] infarction | | | | | | ([facility]) Marijuana use | | | | | | Chronic renal | | | | | | insufficiency, stage | | | | | | IV (severe) ([facility]) | | | | | | Non-compliance | | | | | | probable Discitis of | | | | | | thoracic region | | | | | | Osteomyelitis of | | | | | | thoracic region | | | | | | ([facility]) Pleural | | | | | | [...] [address] | [place] | [phone] | | [facility] | | [address] | | | - LABORATORY | | [...] [address] | [place] | [phone] | | [facility] | | [address] | | | - LABORATORY | | [...] [address] | [place] | [phone] | | [facility] | | [address] | | | - LABORATORY | | [...] [address] | [place] | [phone] | | [facility] | | [address] | | | - LABORATORY | | [...] + | [facility] | [address] | [place] | [phone] | | [facility] | | [address] | | | - LABORATORY | | [...] | mL/min/1.73m2 | NERISSA | | | EGYPTIAN | RATE,ESTIMATED | | MEDICAL | | | | mL/min/1.38v0Ndiz than | | CENTER - | | [...] ST. | [address] | [place], [place] | [phone] | | [facility] | | [address] | | | - LABORATORY | | [...] + | Performed at: 01 - [facility] [place] [address], | REFERENCE LAB | | [place], [place] [id number] Parking Inspector: Ernie Lee MD, Phone: | [facility] | | [phone] | | + + + + + + + + | Performing | Address | City/State/Zipcode | Phone Number | | Organization | | | | + + + + + | REFERENCE LAB | [address] | [place], [place] | [phone] | | [facility] | [place] | [address] | | + + + + + [...] + + | [facility] | [address] | [place] | [phone] | | [facility] | | [address] | | | - LABORATORY | | [...] + + | Performed at: 01 - [facility] [address], | REFERENCE LAB | | [place], [place] [id number] Parking Inspector: Ernie Lee MD, Phone: | [facility] | | [phone] | | + + + + + + + + | Performing | Address | City/State/Zipcode | Phone Number | | Organization | | | | + + + + + | REFERENCE LAB | [address] | [place], [place] | [phone] | | [facility] | [facility] | [address] | | + + + + + [...] + | Performed at: 01 - [facility] [place] [address], | REFERENCE LAB | | [place], [place] [address] Parking Inspector: Ernie Lee MD, Phone: | [facility] | | [phone] | | + + + + + + + + | Performing | Address | City/State/Zipcode | Phone Number | | Organization | | | | + + + + + | REFERENCE LAB | [address] | [place], [place] | [phone] | | [facility] | [place] | [address] | | + + + + + [...] | | | | | | The [facility] recommends that | | | | | | a positive HCV antibody | | | | | | result be followed up | | | | | | with a HCV Nucleic Acid | | | | | | Amplification test | | | | | | ([id number]). | | | | + + + + + + + + | Specimen | + + | Blood | + + + + + | Narrative | Performed At | + + + | Performed at: 01 - [facility] [address], | REFERENCE LAB | | [place], [place] [id number] Parking Inspector: Ernie Lee MD, Phone: | [facility] | | [phone] | | + + + + + + + + | Performing | Address | City/State/Zipcode | Phone Number | | Organization | | | | + + + + + | REFERENCE LAB | [address] | [place], [place] | [phone] | | [facility] | [address] [facility] | [address] | | + + + + + [...] [address] | [place] | [phone] | | [facility] | | [address] | | | - LABORATORY | | [...] [address] | [place] | [phone] | | [facility] | | [address] | | | - [...] [address] | [place] | [phone] | | [facility] | | [address] | | | - LABORATORY | | [...] [address] | [place] | [phone] | | [facility] | | [address] | | | - LABORATORY | | [...] + | [facility] | [address] | [place] | [phone] | | [facility] | | [address] | | | - LABORATORY | | [...] ST. | [address] | [place] | [phone] | | [facility] | | [address] | | | - LABORATORY | | [...] [address] | [place] | [phone] | | [facility] | | [address] | | | - LABORATORY | | [...] [address] | [place] | [phone] | | [facility] | | [address] | | | - LABORATORY | | [...] + | [facility] | [address] | [place] | [phone] | | [facility] | | [address] | | | [...] | | MEDICAL | | | | mL/min/1.63n6Pvtx than | | CENTER - | | [...] [address] | [place] | [phone] | | [facility] | | [address] | | | - LABORATORY | | [...] + | [facility] | [address] | [place] | [phone] | | [facility] | | [address] | | | - LABORATORY | | [...] [address] | [place] | [phone] | | [facility] | | [address] | | | - LABORATORY | | [...] + | [facility] | [address] | [place] | [phone] | | [facility] | | [address] | | | - LABORATORY | | [...] ST. | [address] | [place] | [phone] | | [facility] | | [address] | | | - LABORATORY | | [...] [address] | [place] | [phone] | | [facility] | | [address] | | | - LABORATORY | | [...] | | | | Comment:Reference | | [facility] | | | | Ranges: 0.00-0.06 = [...] | | | | | | [employer] | | | | | [...] + | [facility] | [address] | [place] | [phone] | | [facility] | | [address] | | | - LABORATORY | | [...] ST. | [address] | [place], [place] | [phone] | | [facility] | | [address] | | | - LABORATORY | | [...] [address] | [place] | [phone] | | [facility] | | [address] | | | - LABORATORY | | [...] [address] | [place] | [phone] | | [facility] | | [address] | | | - LABORATORY | | [...] [address] | [place] | [phone] | | [facility] | | [address] | | | - LABORATORY | | [...] + | [facility] | [address] | [place] | [phone] | | [facility] | | [address] | | | - LABORATORY | | [...] | | MEDICAL | | | | mL/min/1.89c1Gpsn than | | CENTER - | | [...] + | [facility] | [address] | [place] | [phone] | | [facility] | | [address] | | | - LABORATORY | | [...] MD | | | | | | ([id number]) on 01/19/2020 | | | | | [...] | | C (101.5 F), Starting [facility] 01/18/20 | | | | | | [...] | | | First dose on [facility] 01/18/20 at 2230 | | PM PDT [...] DAILY, | | | First dose on [facility] 01/20/20 at 2100, | | | For 4 doses | | + +---+ | | | + +---+ + +-------+ +--------+---+---+ | furosemide (LASIX) tablet 160 | Given | 01/20/20 | 160 mg | | | | mg 160 mg, Oral, 2 TIMES DAILY, | | 20 10:54 | | | | | First dose on [facility] 01/18/20 at 2230 | | AM PDT [...] | | | | | NPO, Daytime 9037-6523 Use NIGHT | | | | | | | DOSE for doses scheduled: | | | | | | | HS, Nighttime 3260-3810 If the | | | | | [...] | | | | | Starting [facility] 01/18/20 at 2216 | | | | [...] | | | First dose on [facility] 01/18/20 at 2200 | | | | [...]
--- OUTSIDE RECORDS SUMMARY | ~2020-03-23 | XMS | Encounter Summary ---
Demographics + + + | Address | [address] | | | [place] [address] | + + + | Home Phone [...] | Author | [facility] | | | and [place] | + + + | Organization | [facility] | | | and [place] | + + + | Address | Unknown | + + + | Phone | Unavailable | + + + Support + + + + + | Name | Relationship | Address | Phone | + + + + + | India Tilley | [place] | [address] | | | | | [place], [place] | | | | | [address] | | + + + + + [...] Team Providers + +------+ + | Care Matrix Repairer Name | Role | Phone | [...] | Encounter | [facility] [address] | [address] | | | | | [address] | [place] | | | | | [place] | [address] | | | | | [address] | | | | | | [phone] | | | +--------+ + + + [...]
--- OUTSIDE RECORDS SUMMARY | ~2020-03-23 | XMS | Encounter Summary ---
Demographics + + + | Address | [address] | | | [place] [address] | + + + | Home Phone [...] Author | [facility] | | | and [place] | + + + | Organization | [facility] | | | and [place] | + + + | Address | Unknown | + + + | Phone | Unavailable | + + + Support + + + + + | Name | Relationship | Address | Phone | + + + + + | India Tilley | [place] | [address] | | | | | [place], [place] | | | | | [address] | | + + + + + [...] Team Providers + +------+ + | Care Hardware Installer Name | Role | Phone | + +------+ + PCP | Unavailable | + +------+ + Encounter Details +--------+ + + + + | Date | Type | Department | Care Team | Description | +--------+ + + + + | 06/15/ | Telephone | [facility] | Ibis Arriola | | | 2019 | | [facility] | [place]ISA Restrepo | | | | | [address] | | | | | | [place] | | | | | | [address] | | | | | | [phone] | | | +--------+ + + + [...] T11-T12. Referring Physician: Dereck Miller Office contact: [phone] Patient Phone: [phone] Imaging: MR Lsp [id number] (05/23); Tsp [id number] (05/18) Patient Dx: As above, recent admit [facility] (discharge note in Epic). ESRD, DM, HTN Patient BMI: 28 Blood thinners: none Any Red Flags?: To be performed by: documented in th is encounter Plan of Treatment Not on filedocumented as of this encounter Visit Diagnoses Not on filedocumented in this encounter"
--- OUTSIDE RECORDS SUMMARY | ~2020-03-23 | XMS | Encounter Summary ---
Demographics + + + | Address | [address] | | | [place] [address] | + + + | Home Phone [...] [facility] | | | and [place] | + + + | Organization | [facility] | | | and [place] | + + + | Address | Unknown | + + + | Phone | Unavailable | + + + Support + + + + + | Name | Relationship | Address | Phone | + + + + + | India Tilley | [place] | [address] | | | | | [place], [place] | | | | | [address] | | + + + + + [...] Providers + +------+ + | Care Home Aide Name | Role | Phone [...] | | | | renal | [place] [address] | [address] | | | | | disease | | [address] | | | | | (HCC) | [address] | [address] | | | | | Procedures | WAY | [place], | | | | | [place] OFFICE | [place], | [place] [address] | | | | | OUTPATIENT | [place] [address] | Phone: | | | | | VISIT 25 | Phone: | [phone] | | | | | MINUTES | [phone] | Fax: | | | | | | Fax: | [phone] | | | | | | [phone] | | +--------+--------+ + + + + Encounter Details +--------+ + + + + | Date | Type | Department | Care Team | Description | +--------+ + + + + | 02/28/ | Off-Site | [facility] | Gopi Muñoz | End stage renal | | 2018 | Visit | NEPHROLOGY [address] | M, DO [address] | disease (HCC) | | | | [address] | [address] [place] | (Primary Dx) | | | | [place], [place] | [place] [address] | | | | | [address] | [phone] | | | | | [phone] | | | +--------+ + + + [...] encounter Progress Notes Gopi Muñoz DO - 02/28/2018 12:15 PM PDT Subjective: DIALYSIS NOTE Patient ID: Estefani Tilley is a 72 y.o. female. 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 She also has depression, long [...] the 02/28/18 encounter (Off-Site Visit) with Jessie Muñoz DO Medication Sig Dispense Refill artificial tears [...] Will recheck her in 2 weeks. : [facility], [place]. Santos Stephenson MD, [facility] documented in thi s encounter Plan of Treatment Not on filedocumented as of this encounter Visit Diagnoses + + | Diagnosis | + + | End stage renal disease (HCC) - Primary End stage renal disease | + + documented in this encounter"
--- OUTSIDE RECORDS SUMMARY | ~2020-03-23 | XMS | Encounter Summary ---
Demographics + + + | Address | [address] | | | [place] [address] | + + + | Home Phone [...] Author | [facility] | | | and [place] | + + + | Organization | [facility] | | | and [place] | + + + | Address | Unknown | + + + | Phone | Unavailable | + + + Support + + + + + | Name | Relationship | Address | Phone | + + + + + | India Tilley | [place] | [address] | | | | | [place], [place] | | | | | [address] | | + + + + + [...] Team Providers + +------+ + | Care Lever Tender Name | Role | Phone | [...] | [address] | [place] [address] | | | | | [place] [address] | | | | | | [phone] | | | +--------+ + + + [...] for comparison only - no result from [place]. | [facility] | + + + + +---------+ + + | Performing | Address | City/State/Zipcode | Phone Number | | Organization | | | | + +---------+ + + | [facility] | | | | + +---------+ + + documented in this encounter Visit Diagnoses Not on filedocumented in this encounter"
--- OUTSIDE RECORDS SUMMARY | ~2020-03-23 | XMS | Encounter Summary ---
Demographics + + + | Address | [address] | | | [place] [address] | + + + | Home Phone [...] + | India T[place] | [place] | [address] | | | | | [place], [place] | | | | | [address] | | + + + + + [...] Providers + +------+ + | Care Relief Salesperson Name | Role | Phone | + +------+ + PCP | Unavailable | + +------+ + Encounter Details +--------+ + + + + | Date | Type | Department | Care Team | Description | +--------+ + + + + | 11/18/ | [facility] | [facility] | [place], | | | 2007 - | Encounter | MED CTR CANCER | Venkatesh Forte MD [address] | | | | | CENTER [address] | [address] | | | 12/11/ | | [place] | [place] [address] | | | 2007 | | [address] | [phone] | | | | | [phone] | | | +--------+ + + + [...]
--- OUTSIDE RECORDS SUMMARY | ~2020-03-23 | XMS | Encounter Summary ---
Demographics + + + | Address | [address] | | | [place] [address] | + + + | Home Phone [...] + | Author | [facility] | | | and [place] | + + + | Organization | [facility] | | | and [place] | + + + | Address | Unknown | + + + | Phone | Unavailable | + + + Support + + + + + | Name | Relationship | Address | Phone | + + + + + | India T[place]ley | [place] | [address] | | | | | [place], [place] | | | | | [address] | | + + + + + [...] Team Providers + +------+ + | Care Payment Specialist Name | Role | Phone | + +------+ + PCP | Unavailable | + +------+ + Encounter Details +--------+ + + + + | Date | Type | Department | Care Team | Description | +--------+ + + + + | 06/23/ | [facility] | [facility] | [place], | | | 2006 - | Encounter | MED CTR CANCER | Venkatesh Forte MD [address] | | | | | CENTER [address] | [address] | | | 07/13/ | | [place] | [place] [address] | | | 2006 | | [address] | [phone] | | | | | [phone] | | | +--------+ + + + [...]
--- OUTSIDE RECORDS SUMMARY | ~2020-03-23 | XMS | Encounter Summary ---
Demographics + + + | Address | [address] | | | [place] [address] | + + + | Home Phone [...] Author | [facility] | | | and [place] | + + + | Organization | [facility] | | | and [place] | + + + | Address | Unknown | + + + | Phone | Unavailable | + + + Support + + + + + | Name | Relationship | Address | Phone | + + + + + | India T[place]ley | [place] | [address] | | | | | [place], [place] | | | | | [address] | | + + + + + [...] Providers + +------+ + | Care Product Handler Name | Role | Phone | + [...] [place], | | | | | [place] ESRD | [facility], | [place] [address] | | | | | RELATED S[place] | [place] | Phone: | | | | | MONTHLY | [address] | [phone] | | | | | 20&/> YR OLD | Phone: | Fax: | | | | | 4/> VISITS | [phone] | [phone] | | | | | | Fax: | | | | | | | [phone] | | +--------+--------+ + + + + [...] | | [place] | [place] [address] | | | | | [address] | [phone] | | | | | [phone] | | | +--------+ + + + [...]
--- OUTSIDE RECORDS SUMMARY | ~2020-03-23 | XMS | Encounter Summary ---
Demographics + + + | Address | [address] | | | [place] [address] | + + + | Home Phone [...] Author | [facility] | | | and [place] | + + + | Organization | [facility] | | | and [place] | + + + | Address | Unknown | + + + | Phone | Unavailable | + + + Support + + + + + | Name | Relationship | Address | Phone | + + + + + | India Tilley | ECON | [phone] | | | | | [place], [place] | | | | | [address] | | + + + + + [...] Team Providers + +------+ + | Care Frit Mixer And Burner Name | Role | Phone | + +------+ + | Renato Pierson | PCP | | + +------+ + Encounter Details +--------+ + + + + | Date | Type | Department | Care Team | Description | +--------+ + + + + | 09/05/ | Orders Only | [facility] | Maribeth Vaughan | 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 | | [address] | Y, Tile Installer | intervertebral disc | | | | [place] | | (pyogenic), thoracic | | | | [address] | | region ([facility]); | | | | [phone] | | Osteomyelitis of | | | | | | thoracic vertebra | | | | | | ([facility]) | +--------+ + + + + Social [...] | | | | | region ([facility]) | | | | | | Osteomyelitis of | | | | | | thoracic vertebra | | | | | | ([facility]) | | + +--------+ + + + | CBC WITH | Routin | 05/18/2019 | Infection of | Results for this | | DIFFERENTIAL | e | 3:45 PM | intervertebral disc | procedure are in the | | | | PDT | (pyogenic), thoracic | results section. | | | | | region ([facility]) | | | | | | Osteomyelitis of | | | | | | thoracic vertebra | | | | | | ([facility]) | | + +--------+ + + + | C-REACTIVE PROTEIN | Routin | 05/18/2019 | Infection of | Results for this | | | e | 3:45 PM | intervertebral disc | procedure are in the | | | | PDT | (pyogenic), thoracic | results section. | | | | | region ([facility]) | | | | | | Osteomyelitis [...] | | | | | region ([facility]) | | | | | | Osteomyelitis [...] | | | | | region ([facility]) | | | | | | Osteomyelitis [...] | performed at [facility];[address] | [address] | LAB | | | | [facility] | | [facility] | | | | [address];[place] [address] | | LABORATORY | | + + + + + + + + | Specimen | + + | Blood | + + + + + + + | Performing | Address | City/State/Zipcode | Phone Number | | Organization | | | | + + + + + | REFERENCE LAB | [address] [place] [address] | [place], [place] | [phone] | | [facility] | Bl[address] | [address] | | | LABORATORY | | | | + + + + + | REFERENCE LAB | [address] [place] [address] | [place], [place] | | | [facility] | Bl[address] | [address] | | | LABORATORY | | | [...] | performed at [facility];[address] | | | | | | [facility] | | | | | | vd;[place] [address] | | | | | | | | | | + + + + + + + + | Specimen | + + | Blood | + + + + + + + | Performing | Address | City/State/[facility] | Phone Number | | Organization | | | | + + + + + | REFERENCE LAB | [address] [place] [address] | [place], [place] | [phone] | | [facility] | [address] | [address] | | | LABORATORY | | | | + + + + + | REFERENCE LAB | [address] [place] [address] | [place], [place] | | | [facility] | Bl[address] | [address] | | | LABORATORY | | | [...] | performed at [facility];[address] | | LAB | | | | [place] | | [facility] | | | | [address];[place] [address] | | LABORATORY | | + + + + + + + + | Specimen | + + | Blood | + + + + + + + | Performing | Address | City/State/Zipcode | Phone Number | | Organization | | | | + + + + + | REFERENCE LAB | [address] | [place] | [phone] | | [facility] | [address] | [address] | | | LABORATORY | | | | + + + + + | REFERENCE LAB | [address] [facility] | [place] | | | [facility] | Bl[address] | [address] | | | LABORATORY | | | [...] [facility] | | | | Blvd;[place] [address] | | LABORATORY | | + + + + + + + + | Specimen | + + | Blood | + + + + + + + | Performing | Address | City/State/Zipcode | Phone Number | | Organization | | | | + + + + + | REFERENCE LAB | [address] [facility] | [place] | [phone] | | [facility] | [address] | [address] | | | LABORATORY | | | | + + + + + | REFERENCE LAB | [address] [facility] | [place] | | | [facility] | [address] | [address] | | | LABORATORY | | | [...] | | [facility] | | | | [id number]: Testing | | LABORATORY | | | | performed at [facility], [address] | [address], | | | | | | [place] [address] | | | | + + + [...] + + | REFERENCE LAB | [address] [place] [address] | [place], [place] | [phone] | | [facility] | Bl[address] | [address] | | | LABORATORY | | | | + + + + + | REFERENCE LAB | [address] [place] [address] | [place] | | | [facility] | [address] | [address] | | | LABORATORY | | | [...]
--- OUTSIDE RECORDS SUMMARY | ~2020-03-23 | XMS | Encounter Summary ---
Demographics + + + | Address | [address] | | | [place] [address] | + + + | Home Phone [...] + | Author | [facility] | | | and [place] | + + + | Organization | [facility] | | | and [place] | + + + | Address | Unknown | + + + | Phone | Unavailable | + + + Support + + + + + | Name | Relationship | Address | Phone | + + + + + | India Tilley | ECON | [address] | | | | | [place], [place] | | | | | [address] | | + + + + + [...] Team Providers + +------+ + | Care Exhaust Worker Name | Role | Phone | + +------+ + PCP | Unavailable | + +------+ + Encounter Details +--------+ + + + + | Date | Type | Department | Care Team | Description | +--------+ + + + + | 05/16/ | Abstract | [facility] | Gopi Muñoz | | | 2019 | | NEPHROLOGY [address] | M, DO [address] | | | | | [address] | [address] | | | | | [place] | [place] [address] | | | | | [address] | [phone] | | | | | [phone] | | | +--------+ + + + [...] +--------+ + + + | Erythrocyte | 79 (A) | 0 - 20 mm/hr | | | | | | | | | | Sedimentati | | | | | | on Rate | | | | | + +--------+ + + + + + | Specimen | + + | Blood | + + documented in this encounter Visit Diagnoses Not on filedocumented in this encounter"
--- OUTSIDE RECORDS SUMMARY | ~2020-03-23 | XMS | Encounter Summary ---
Demographics + + + | Address | [address] | | | [place] [address] | + + + | Home Phone [...] Author | [facility] | | | and [place] | + + + | Organization | [facility] | | | and [place] | + + + | Address | Unknown | + + + | Phone | Unavailable | + + + Support + + + + + | Name | Relationship | Address | Phone | + + + + + | India Tilley | ECON | [address] | | | | | [place], [place] | | | | | [address] | | + + + + + [...] Team Providers + +------+ + | Care Mental Health Coordinator Name | Role | Phone | + +------+ + PCP | Unavailable | + +------+ + Encounter Details +--------+ + + + + | Date | Type | Department | Care Team | Description | +--------+ + + + + | 07/22/ | [facility] | [facility] | Gopi Muñoz | | | 2005 | Encounter | MED CTR XRAY [address] | M, DO [address] | | | | | [place] | [facility] [address] [place] | | | | | [place] [address] | [place] [address] | | | | | [phone] | [phone] | | | | | | | [...]
--- OUTSIDE RECORDS SUMMARY | ~2020-03-23 | XMS | Encounter Summary ---
Demographics + + + | Address | [address] | | | [place] [address] | + + + | Home Phone [...] | Author | [facility] | | | and [place] | + + + | Organization | [facility] | | | and [place] | + + + | Address | Unknown | + + + | Phone | Unavailable | + + + Support + + + + + | Name | Relationship | Address | Phone | + + + + + | India Tilley | ECON | [address] | | | | | [place], [place] | | | | | [address] | | + + + + + [...] Team Providers + +------+ + | Care Soil Fertility Specialist Name | Role | Phone | [...] [address] [place] | | | | | [place], [place] | [place] [address] | | | | | [address] | [phone] | | | | | [phone] | | | +--------+ + + + [...] encounter Progress Notes Gopi Muñoz DO - 06/26/2019 11:59 PM PDT Subjective: DIALYSIS [...] HD in 018and then was DC to [facility] [place]. Unfortunat brandy, she has had intermittent [...] for the 06/26/19 encounter (Documentation) with Ant Muñoz, DO Medication Sig Dispense Refill acetaminophen (TYLENOL) [...] Gopi Muñoz DO. 07/30/19 3:11 PM CC: [place], [place] [facility], [place], [place]. document ed in this encounter Plan of Treatment Not on filedocumented as of this encounter Visit Diagnoses + + | Diagnosis | + + | ESRD (end stage renal disease) on dialysis (HCC) - Primary End stage renal disease | + + documented in this encounter
--- OUTSIDE RECORDS SUMMARY | ~2020-03-23 | XMS | Encounter Summary ---
Demographics + + + | Address | [address] | | | [place] [address] | + + + | Home Phone [...] | Author | [facility] | | | and [place] | + + + | Organization | [facility] | | | and [place] | + + + | Address | Unknown | + + + | Phone | Unavailable | + + + Support + + + + + | Name | Relationship | Address | Phone | + + + + + | India Tilley | ECON | [address] | | | | | [place], [place] | | | | | [address] | | + + + + + [...] Team Providers + +------+ + | Care Chairman President And Chief Executive Officer Name | Role | Phone | + +------+ + PCP | Unavailable | + +------+ + Encounter Details +--------+ + + + + | Date | Type | Department | Care Team | Description | +--------+ + + + + | 07/23/ | [facility] | [facility] | Patricia, | | | 2006 - | Encounter | MED CTR CANCER | Venkatesh Forte MD [address] | | | | | CENTER [address] | [place] | | | 08/12/ | | [place] | [place] [address] | | | 2006 | | [address] | [phone] | | | | | [phone] | | | +--------+ + + + [...]
--- OUTSIDE RECORDS SUMMARY | ~2020-03-23 | XMS | Encounter Summary ---
Demographics + + + | Address | [address] | | | [place] [address] | + + + | Home Phone [...] | Author | [facility] | | | and [place] | + + + | Organization | [facility] | | | and [place] | + + + | Address | Unknown | + + + | Phone | Unavailable | + + + Support + + + + + | Name | Relationship | Address | Phone | + + + + + | India Tilley | ECON | [phone] | | | | | [place], [place] | | | | | [address] | | + + + + + [...] Team Providers + +------+ + | Care Fiberglass Boat Finisher Name | Role | Phone | [...] + | 12/29/ | Telephone | [facility] | Santos Stephenson | Appointment | | 2018 | | SURGERY [address] | MD Kinga, FACS [address] | | | | | [address] [place], [place] | [facility] | | | | | [address] | [place] [address] | | | | | [phone] | [phone] | | | | | | | [...]
--- OUTSIDE RECORDS SUMMARY | ~2020-03-23 | XMS | Encounter Summary ---
Demographics + + + | Address | [address] | | | [place] [address] | + + + | Home Phone [...] + | Author | [facility] | | | and [place] | + + + | Organization | [facility] | | | and [place] | + + + | Address | Unknown | + + + | Phone | Unavailable | + + + Support + + + + + | Name | Relationship | Address | Phone | + + + + + | India Tilley | ECON | [address] | | | | | [place], [place] | | | | | [address] | | + + + + + [...] Team Providers + +------+ + | Care Dye Range Feeder Name | Role | Phone | + +------+ + PCP | Unavailable | + +------+ + Encounter Details +--------+ + + + + | Date | Type | Department | Care Team | Description | +--------+ + + + + | 05/12/ | [facility] | [facility] | | | | 2006 - | Encounter | MED CTR CANCER | | | | | | [place] | | | | 05/13/ | | [place] | | | | 2006 | | [address] | | | | | | [phone] | | | +--------+ + + + [...]
--- OUTSIDE RECORDS SUMMARY | ~2020-03-23 | XMS | Encounter Summary ---
Demographics + + + | Address | [address] | | | [place] [address] | + + + | Home Phone [...] Author | [facility] | | | and [place] | + + + | Organization | [facility] | | | and [place] | + + + | Address | Unknown | + + + | Phone | Unavailable | + + + Support + + + + + | Name | Relationship | Address | Phone | + + + + + | India Tilley | ECON | [phone] | | | | | [place], [place] | | | | | [address] | | + + + + + [...] Team Providers + +------+ + | Care Lining Caser Name | Role | Phone | + [...] + + | 07/26/ | Telephone | [facility] | Francisca Robert, | Surgery Appointment | | 2019 | | VASCULAR SURGERY | RN | | | | | [address] | | | | | | [facility] | | | | | | [address] | | | | | | [phone] | | | +--------+ + + + [...] PSTReceived fistulagram re [facility] for [facility] on behalf of patient for "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 Called patient, no answer-left voicemail.Electronically signed by Francisca Robert RN at 3:23 PM PSTdocumented in this encounter Plan of Treatment Not on filedocumented as of this encounter Visit Diagnoses Not on filedocumented in this encounter
--- OUTSIDE RECORDS SUMMARY | ~2020-03-23 | XMS | Encounter Summary ---
Demographics + + + | Address | [address] | | | [place] [address] | + + + | Home Phone [...] | Author | [facility] | | | and [place] | + + + | Organization | [facility] | | | and [place] | + + + | Address | Unknown | + + + | Phone | Unavailable | + + + Support + + + + + | Name | Relationship | Address | Phone | + + + + + | India Tilley | ECON | [address] | | | | | [place], [place] | | | | | [address] | | + + + + + [...] Team Providers + +------+ + | Care Licensed Optician Name | Role | Phone | + [...] + | 11/08/ | Anesthesia | [facility] | Vinnie Last MD | | | 2018 | Event | MED CTR OR INTRA OP | [address] | | | | | [address] | [place] | | | | | [place] | [phone] | | | | | [address] | | | | | | [phone] | | | +--------+ + + + [...] +----+---+ + + | | 1 | [place] | | | | 2 | 43-degrees [...] +----+---+ + + | | 1 | [place] | | | | 3 | [...] EVALUATION Estefanipadma Tilley 72 y.o. female 1945 [id number] Procedure(s) Tunneled Hemodialysis Catheter Placement (N/A Abdomen) [...] by Vinnie Last MD 11/08/2017 14:53 M ARBOR HEALTHElectronically signed by Vinnie Last MD at 2017 2:53 PM PSTAnesthesia Preprocedure Evaluation - Vinnie Last MD - 11/08/2017 11:07 A M PST ANESTHESIA PREANESTHESIA EVALUATION Estefani Tilley 72 y.o. female 1945 [id number] Procedure(s): Tunneled Hemodialysis Catheter Placement (N/A Abdomen) [...]
--- OUTSIDE RECORDS SUMMARY | ~2020-03-23 | XMS | Encounter Summary ---
Demographics + + + | Address | [address] | | | [place] [address] | + + + | Home Phone [...] | Author | [facility] | | | and [place] | + + + | Organization | [facility] | | | and [place] | + + + | Address | Unknown | + + + | Phone | Unavailable | + + + Support + + + + + | Name | Relationship | Address | Phone | + + + + + | India Tilley | ECON | [phone] | | | | | [place], [place] | | | | | [address] | | + + + + + [...] Team Providers + +------+ + | Care Right Of Way Worker Name | Role | Phone | [...] [place], | | | | | ([facility]) | [place], | [place] [address] | | | | | | [place] [address] | Phone: | | | | | | Phone: | [phone] | | | | | | [phone] | Fax: | | | | | | Fax: | [phone] | | | | | | [phone] | | +--------+ + + + + + Encounter Details +--------+---------+ + + + | Date | Type | Department | Care Team | Description | +--------+---------+ + + + | 03/10/ | Office | [facility] | Santos Stephenson | Chronic kidney | | 2018 | Visit | SURGERY [address] | MD Kinga, FACS [address] | disease, stage V | | | | [address] [place] [facility], [place] | [facility] | (HCC) (Primary Dx); | | | | [address] | [place] [address] | Post-operative state | | | | [phone] | [phone] | | | | | | | [...] She has been going to dialysis in [place], [place] , states things are going well. [...] Placement; Surgeon: Nora Leo MD; Location : [facility] MAIN OR SHUNT PLACEMENT/INSERTION Right 02/04/2018 Procedure: INSERTION SHUNT HEMODIALYSIS W/ PERMACATH; Surgeon: Heather Navarro MD; L ocation: [facility] MAIN OR VEIN SURGERY Right 01/04/2018 Procedure: Right Transposed Basilic Vein to Proximal Radial Artery; Surgeon: Santos Stephenson MD, FACS; Location: [facility] MAIN OR Allergies Allergen Reactions Lisinopril [...] REPORT: PATIENT NAME : Estefani Tilley EQUIPMENT: SonIppieste M-Turbo with 10-5 mHertz probe. INDICATIONS: S/P Right [...] RIGHT IJ catheter. Patient to follow with die filer and primary care. I will be available [...]
--- OUTSIDE RECORDS SUMMARY | ~2020-03-23 | XMS | Encounter Summary ---
Demographics + + + | Address | [address] | | | [place] [address] | + + + | Home Phone [...] [facility] | | | and Kamaljitana | + + + | Organization | [facility] | | | and [place] | + + + | Address | Unknown | + + + | Phone | Unavailable | + + + Support + + + + + | Name | Relationship | Address | Phone | + + + + + | India Campos | ECON | [address] | | | | | [place], [place] | | | | | [address] | | + + + + + [...] Team Providers + +------+ + | Care Rotor Plate Washer Name | Role | Phone | [...] + + | 10/01/ | Hospital | [facility] | Olegario Peng, | Hypertensive | | 2018 - | Encounter | [facility] | [address] | emergency; Chest | | | | [address] [place] | [place] | pain, unspecified | | 10/06/ | | [place] [address] | [id number] | type; Leg swelling; | | 2018 | | [phone] | | CKD (chronic kidney | | | | | Rupal Laguna MD | disease), stage IV | | | | | [address] | ([facility]); Type 2 | | | | | [place] | diabetes mellitus | | | | | [id number] | with stage 4 chronic | | | | | | kidney disease, | | | | | Nikhil Vega, | with long-term | | | | | MD Mayelin [address] | current use of | | | | | [address] | insulin (HCC); | | | | | [place] [address] | Anemia of chronic | | | | | [phone] | renal failure, stage | | | [...] Keys MD - 10/06/2017 10:38 AM PST [facility] DISCHARGE SUMMARY Pt. Name/Age/: Ara Jimenez Andres [...] Specialty: Nephrology Why: at 4:30PM, at the [facility], [address], [place], [place], ([phone]). Contact information: [address], [address] [place] [address] Santos Stephenson MD, FACS In 2 weeks. Specialties: General Surgery, Vascular Surgery Why: Dr. Stephenson's Office, the Vascular Surgeon, will Call you with the time.* Contact information: [place] [address] RESULTS: Narrative TECHNIQUE: Renal and bladder B-mode [...] pressures were in the 230 range at [facility] and she received IV hydralazine and [...] signed by: Edison Keys MD, 10/06/2017 10:48 [facility] Portions of this chart may have been created with Jobber voice recognition software. Occasi onal wrong-word or [...] your Appt. with Dr. Muñoz at the [facility]. 2. Dr. Stephenson Office, the Vascular [...] to come to the [facility] at [place], [place] for follow up on 11/08/17. We sent a Referral to Dr. Stephenson's Office for an outpt appt. for an AVF construction in the very near future. They will call her with the Appt. time per [place], [facility] policy. Will attempt to wait until AVF is mature before starting outpt HD, as long as uremic sympto ms do not intervene. Thanks. [facility] Edison Andrea M D - 10/05/2017 2:20 PM PST [facility] PMG Hospitalist Progress Note Ara [...] that she should be followed by a ground equipment mechanic night discussed this issue with her. I [...] as outlined above. Edison Keys 10/05/2017 14:20 [facility] Portions of this chart may have been created with Jobber voice recognition software. Occasi onal wrong-word or sound-alike substitutions may have occurred due to the inherent mckeon itations of voice recognition software. Please read the chart carefully and recognize, using context, where these substitutions have occurred ayelin Engle MD - 10/04/2017 5:37 PM PST [facility] [place] HOSPITALIST PROGRESS NOTE Patient: Ara Campos : 1945: Age: 72 y.o. MedRec: [id number] Admission date: 10/01/2017 Hospital day # : [...] Procedure Component Value Units Date/Time Culture, MRSA [[id number]] Collected: 10/02/17 0803 Order Status: Completed Lab [...] Code: FULL Mayelin Vega MD 10/04/2017 17:38 [facility] Portions of this chart may have been created with Jobber voice recognition software. Occasi onal wrong-word or sound-alike substitutions may have occurred due to the inherent mckeon itations of voice recognition software. Please read the chart carefully and recognize, using context, where these substitutions have occurred olph, Ta Restrepo [facility] - 10/04/2017 10:15 AM PST PHARMACY SERVICES: [...] performed and electronically signed by Puja Whitman, Forensic Dna Analyst 2017 10:09 Electronically signed by: Ta Ronquillo RPH 10/04/2017 10:14 Diann Sanders MD - 10/03/2017 12:46 PM PST [place], [place] HOSPITALIST PROGRESS NOTE Patient: Ara Campos : 1945: Age: 72 y.o. MedRec: [id number] Admission date: 10/01/2017 Hospital day # : [...] Procedure Component Value Units Date/Time Culture, MRSA [[id number]] Collected: 10/02/17 0803 Order Status: Completed Lab [...] Code: FULL Mayelin Vega MD 10/03/2017 12:46 [facility] Portions of this chart may have been created with Jobber voice recognition software. Occasi onal wrong-word or sound-alike substitutions may have occurred due to the inherent mckeon itations of voice recognition software. Please read the chart carefully and recognize, using context, where these substitutions have occurred Mayelin Sanders MD - 10/02/2017 9:13 AM PSTFormatting of this note might be different from the or iginal. [facility] [place] HOSPITALIST PROGRESS NOTE Patient: Ara Campos : 1945: Age: 72 y.o. MedRec: [id number] Admission date: 10/01/2017 Hospital day # : [...] ECGs available Confirmed by KEN ELLISON MD ([id number]) on 10/02/2017 7:49:20 AM Lipid Panel Collection [...] Procedure Component Value Units Date/Time Culture, MRSA [[id number]] Collected: 10/02/17802 Order Status: Sent Lab Status: [...] with tele Mayelin Vega MD 10/02/2017 9:13 [facility] Portions of this chart may have been created with Jobber voice recognition software. Occasi onal wrong-word or [...] records Chief Complaint/Reason for Visit: Transferred from [place] for hypertensive emergency and CHF History of Present Illness: 72yoF w/ hx of IDDM, HTN, CKD IV, who presented to [facility] for leg swelling and central addie st [...] has not yet had an appointment. At [facility] ER, she was noted to be quite [...] by: Rupal Laguna MD, 10/01/2017 20:25 [facility] Lab data: No results found for this or any previous visit (from the past 24 hour(s)). documented in this enc ounter Consult Notes Gopi Muñoz, - 10/05/2017 9:43 PM PST [facility] [address] [place] [address] NEPHROLOGY CONSULT Pt. Name/Age/: Ara Campos 72 y.o. 1945 Med. Record Number: [id number] Date of admission: 10/01/2017 Reason for consultation: Stage IV CKD Referring Provider: Edison Keys MD HPI: This is a pleasant, 72 YO Female who was transferred from the ER at [facility], [place] on 10/01/17 with chest pain and hypertensive urgency. Her SBP apparently was up to "230 mmHg" per the admitting Team, at the referring Hospital but later was found to be 150/92 mmHg on arrival. She has been moderate ly hypertensive her requiring 3-4 meds . Note that her Scr was 1.82 mg/dl at [facility] in 03/09/17, then, 2.13 mg/dl in [...] daily. ETOH: denies. Single; lives independently, in [place]. FAMILY HISTORY: Father: in his 70's of [...] basis with an established dialysis access, i.e. tribe AVF. 2. I would favor sending her [...] one month at the CKD clinic at [facility], [place]. Thank you for the chance to see this very interesting patient. Please feel free to call me at any time, if any questions arise. [facility] CC: Edison Keys M.D. [facility] Santos Stephenson MD, FACS ouseAngelina, [...] Needs: (based on 67 kg) Kcal needs: 3473-5015 Kcals/day Protein needs:67-84 grams of protein/day Fluid goal:2784-3104 cc fluid per day Nutrition Plan of [...] in 2 days. Available as needed, ext [phone] Assessment: Diet Order: For your reference, current, [...] up appt scheduled with Nan Bruno at [facility] at 1000 . Asked her if she is agreeable to go to this appt, she states that s he will go and will request a new provider at that time. Asked her if she would like visits from the [facility] at [facility], she states that she does not want visits at this time. Called LISA Mock [facility] and left her a VM letting her know that lee ent does not want visits but is agreeing to a follow up appt. D/c summary faxed to [facility]. She has no other concerns. Family [...] is admitted for CHF, acute (HCC) [I50.9]. Stockholder visit is in response to a nurse's [...] later complained that the presence of the auxiliary plant operator and other staff kept he tony from [...] ambrocio. She finds deepest meaning in the [employer] ceremonies but she also attends a [facility] and[employer] synagogue from time to time. She said that twice she traveled to [place] to [employer] [facility] [place]. She would rather be there now. Her [...] not present at this time. Spiritual Interventions: Tractor Expert attended, offered care, explored meaning, processed grief, [...] Her last BM was 10/04/17 lan of [facility] - Jeni, Ashli Jimenez RN - 10/04/2017 2:59 PM PSTProblem: Patient Care Overview (Adult) Goal: Care Team Goals & Evaluation PROBLEM-RELATED GOALS: 1. Ara will be free of falls through 10/07/17 2. Ara will be free of nausea by 10/07/17 3. rAa's blood pressures will be in normal range [...] Denies pain. Calls appropriately for assistance. lan [facility] - Margaret Dempsey MSW - 10/04/2017 12:46 [...] call again. Electronically signed by: Margaret Dempsey, DIRECT CHILL CASTING OPERATOR 10/04/19 18 12:46 LATE ENTRY: Spoke with patient at length the evening of 10/04/16 about her discharge needs. Expressed the importance of her following up with her PCP for med management and hospital fo llow up. This CM had [facility] RN from [facility] on the phone to explain to [...] said she will establish with PCP from [facility], Emili explained that she may not get [...] tentative follow up appt on at the [facility]. CM will follow up with her and [facility] RN about what patient decides on her PCP, whether she want s to stay at [facility] or establish with [facility]. Electronically signed by: JENNIFER Rogers 10/05/2017 9:39 [...] in a safe manner Outcome: Improving This case filler met with patient and her four family members to discuss discharge plans. Patient states that she lives in her own apartment in [place]. She states that her damaximilianoe r is staying there right now and her boyfriend stays there when he is not working. She repor ts that at baseline, she is independent and able to care for herself. She does not use any D MA. She reports that she is a member of the [facility]. She reports that she see Dr Nisha lee is what she calls her. She reports that she is not involved in any other programs thro [facility]. This CM mentioned a [facility] RN and asked if she has ever been visit ed. She states that she has not. This CM offered to call LISA Mock in [facility] to as k if she is able [...] any further needs at discharge. She uses [facility] for pharmacy and also uses [facility] as well. PLAN: Home with family transporting when stable. [facility] RN to follow up with lee [...] [address] | [place] | [phone] | | [facility] | | [address] | | | - LABORATORY | | [...] + | [facility] | [address] | [place] | [phone] | | [facility] | | [address] | | | - LABORATORY | | [...] mL/min/1.73m2 | [facility] | | | [place] | | | MEDICAL | | | [...] [address] | [place] | [phone] | | [facility] | | [address] | | | - LABORATORY | | [...] [address] | [place] | [phone] | | [facility] | | [address] | | | - LABORATORY | | [...] ST. | [address] | [place], [place] | [phone] | | [facility] | | [address] | | | - LABORATORY | | [...] + + | Performing | Address | City/State/[facility] | Phone Number | | [...] + | [facility] | [address] | [place] | [phone] | | [facility] | | [address] | | | - LABORATORY | | [...] [address] | [place] | [phone] | | [facility] | | [address] | | | - LABORATORY | | [...] [address] | [place] | [phone] | | [facility] | | [address] | | | - LABORATORY | | [...] | [address] | [address] | [place] | [phone] | | [facility] | | [address] | | | - LABORATORY | | [...] + | [facility] | [address] | [place] | [phone] | | [facility] | | [address] | | | - LABORATORY | | [...] [address] | [place] | [phone] | | [facility] | | [address] | | | - LABORATORY | | [...] [address] | [place] | [phone] | | [facility] | | [address] | | | - LABORATORY | | [...] | | | | | | [facility] | | | | | | [...] + | [facility] | [address] | [place] | [phone] | | [facility] | | [address] | | | - LABORATORY | | [...] [address] | [place] | [phone] | | [facility] | | [address] | | | - LABORATORY | | [...] [facility] | | | [place] | RATE,ESTIMATED | | MEDICAL | | | | mL/min/1.94o2Lana than | | CENTER - | | [...] [address] | [place] | [phone] | | [facility] | | [address] | | | - LABORATORY | | [...] | | | Cells | | | [facility] | | | | | | MEDICAL | | | | | | CENTER - | | | | | | LABORATORY | | + + + + + + | Red Blood | 3.44 (L) | 3.70 - 5.20 | [facility] | | | Cells | | M/uL | [facility] | | | | | | MEDICAL | | | | | | CENTER - | | | | | | LABORATORY | | + + + + + + | Hemoglobin | 10.0 (L) | 11.5 - 16.0 | [facility] | | | | | g/dL | [facility] | | | | | | [...] [address] | [place] | [phone] | | [facility] | | [address] | | | - LABORATORY | | [...] + | [facility] | [address] | [place] | [phone] | | [facility] | | [address] | | | - LABORATORY | | [...] [address] | [place] | [phone] | | [facility] | | [address] | | | - LABORATORY | | [...] + | [facility] | [address] | [place] | [phone] | | [facility] | | [address] | | | - LABORATORY | | [...] + | [facility] | [address] | [place] | [phone] | | [facility] | | [address] | | | - LABORATORY | | [...] | | | | | | [facility] | | [...] ST. | [address] | [place], [place] | [phone] | | [facility] | | [address] | | | - LABORATORY | | [...] | | GLOMERULAR FILTRATION | mL/min/1.73m2 | [facility] | | | [place] | RATE,ESTIMATED | | MEDICAL | | | | mL/min/1.73p0Dfpn than | | CENTER - | | [...] | | | | | mg/dL | [facility] | | | | | | [...] [address] | [place] | [phone] | | [facility] | | [address] | | | - LABORATORY | | [...] | [facility] | [address] | [place] | [phone] | | [facility] | | [address] | | | - LABORATORY | | [...] [address] | [place] | [phone] | | [facility] | | [address] | | | - LABORATORY | | [...] not | 15 (L)Comment: | >=60 | GOODYEAR | | | | GLOMERULAR FILTRATION | mL/min/1.73m2 | [facility] | | | [place] | RATE,ESTIMATED | | MEDICAL | | | | mL/min/1.18b8Ywrl than | | CENTER - | | [...] | 8.8 | 8.3 - 10.5 | [facility] | | | | | mg/dL | [...] [address] | [place] | [phone] | | [facility] | | [address] | | | - LABORATORY | | [...] ST. | [address] | [place], [place] | [phone] | | [facility] | | [address] | | | - LABORATORY | | | | + + + + + VAS Lower Extremity Venous Bilateral (10/02/2017 10:07 AM [facility]) + + | Specimen | [...] 454 R | | | Patient Number [id number] Date of Study | | | 10/02/2017 Visit Number [id number] Accession | | | [id number] Referring Physician LOY MATA Number | | | Date of 1945 Outsole Handler | | | WENDY HUDSON | | | [place] Age 72 year(s) | | | Interpreting CLAUDIA HUGHES MD | | | Rocket Engine Mechanic Gender | | | Female Nurse | | | Stress Jacquard Fixer Procedure Type of Study TTE procedure: ECHO [...] | 71.7 ml | | | EF Cdcljcmlb73% Left Ventricle Diastolic Dimension: 5.37 cm | [...] Volume: 71.7 ml | | | EF Lhbsfaind75% | | | | | | Left [...] Rad Results In - 10/02/2017 9:41 AM [facility] Transthoracic Echocardiography Report | | (TTE) Demographics Patient Name ANDRES BRARA Room Number 454 | | R Patient Number [id number] Date of Study 10/02/2017 Visit Number | | [id number] Referring Physician LOY MATA Number | | Date of 1945 Outsole Handler WENDY HUDSON | | [facility] Age 72 year(s) Interpreting | | CLAUDIA HUGHES MD Rocket Engine Mechanic Gender | | Female Nurse Stress TechnicianProcedureType [...] LA Volume: 71.7 ml EF | | Uiddkoacj79% Left Ventricle Diastolic Dimension: 5.37 cm Septum [...] LA Volume: 71.7 ml | | EF Lclqvfzco60% | | | | Left Ventricle | [...] [address] | [place] | [phone] | | [facility] | | [address] | | | - LABORATORY | | [...] [address] | [place] | [phone] | | [facility] | | [address] | | | - LABORATORY | | [...] | | es | | | [facility] | | [...] + | [facility] | [address] | [place] | [phone] | | [facility] | | [address] | | | - LABORATORY | | [...] [address] | [place] | [phone] | | [facility] | | [address] | | | - LABORATORY | | [...] | | | | | | [employer] | | | | | [...] [address] | [place] | [phone] | | [facility] | | [address] | | | - LABORATORY | | | | + + + + + Magnesium (10/02/2017 2:41 AM PST) + +-------+ + + + | Component | Value | Ref Range | Performed | Pathologist | | | | | At | Signature | + +-------+ + + + | Magnesium | 1.8 | 1.8 - 2.5 mg/dL | [facility] | | | | | | ST. [...] + | [facility] | [address] | [place] | [phone] | | [facility] | | [address] | | | - LABORATORY | | [...] | | | | mg/dL | [facility] | | | | | | MEDICAL | | | | | | CENTER - | | | | | | LABORATORY | | + + + + + + | eGFR if not | 15 (L)Comment: | >=60 | [facility] | | | | GLOMERULAR FILTRATION | mL/min/1.73m2 | [facility] | | | [place] | RATE,ESTIMATED | | MEDICAL | | | | mL/min/1.83t8Etrv than | | CENTER - | | [...] [address] | [place] | [phone] | | [facility] | | [address] | | | - LABORATORY | | [...] [address] | [place] | [phone] | | [facility] | | [address] | | | - LABORATORY | | [...] | | | | KEN ELLISON MD ([id number]) | | | | | | on [...] + | [facility] | [address] | [place] | [phone] | | [facility] | | [address] | | | - LABORATORY | | [...] versus pneumonia. Dictated and Signed by: Salvatore Wang | | MD Enrique Electronically signed: [...] | | | | | | [employer] | | | | | [...] + + | Performing | Address | City/State/[facility] | Phone Number | | Organization | | | | + + + + + | [facility] | [address] | [place] | [phone] | | [facility] | | [address] | | | - LABORATORY | | [...] [address] | [place] | [phone] | | [facility] | | [address] | | | - LABORATORY | | [...] + | [facility] | [address] | [place] | [phone] | | [facility] | | [address] | | | - LABORATORY | | [...] not | 15 (L)Comment: | >=60 | GOODYEAR | | | | GLOMERULAR FILTRATION | mL/min/1.73m2 | [facility] | | | [place] | RATE,ESTIMATED | | MEDICAL | | | | mL/min/1.19c5Gqdw than | | CENTER - | | [...] | | | | | mg/dL | [facility] | | | | | | [...] [address] | [place] | [phone] | | [facility] | | [address] | | | - LABORATORY | | [...] | | | Cells | | | [facility] | | | | | | MEDICAL | | | | | | CENTER - | | | | | | LABORATORY | | + + + + + + | Red Blood | 3.16 (L) | 3.70 - 5.20 | [facility] | | | Cells | | M/uL | [facility] | | | | | | [...] [address] | [place] | [phone] | | [facility] | | [address] | | | - LABORATORY | | [...] 18 9:43 | | | | | [facility] 10/01/17 at 2045 | | AM PST [...] | | | | | NPO, Daytime 4350-8897 Use NIGHT | | | | | | | DOSE for doses scheduled: | | | | | | | HS, 3AM, Nighttime 7155-4535, | | | | | | + [...] DAILY, First dose | | | on [facility] 10/07/17 at 0900 | | + [...]
--- OUTSIDE RECORDS SUMMARY | ~2020-03-23 | XMS | Encounter Summary ---
Demographics + + + | Address | [address] | | | [place] [address] | + + + | Home Phone [...] | [facility] | | | and [place] | + + + | Organization | [facility] | | | and [place] | + + + | Address | Unknown | + + + | Phone | Unavailable | + + + Support + + + + + | Name | Relationship | Address | Phone | + + + + + | India Tilley | ECON | [phone] | | | | | [place], [place] | | | | | [address] | | + + + + + [...] Team Providers + +------+ + | Care Drafter Topographical Name | Role | Phone | + [...] 02/05/ | | [place] | [place] [address] | | | 2017 | | [address] | [phone] | | | | | [phone] | | | +--------+---------+ + + + [...] Office Phone Number to Contact Dr Navarro: [phone] Navarro's Office to schedule a follow up visit as needed - you will follow up with Dr Stephenson and at the dialysis center. Our office is located in the [facility] next door to Urgent Care. Other appointments [...] Wednesday 9:00-2:00PM. Call the General Surgery Office [phone] for the following: Persistent vomiting Diarrhea lasting [...] as possible. Limit sports and strenuous activities [id number]. Shower as usual. Gently wash around your [...] Navarro MD - 02/04/2018 7:51 PM PDT [facility] ADMIT HISTORY AND PHYSICAL Primary Care Physician: [...] catheter was dislodged yesterday. She was in [place] and then came here from [facility] in [place]. She recently had an AV fistula placed, [...] Placement; Surgeon: Nora Leo MD; Location : [facility] MAIN OR VEIN SURGERY Right 01/04/2018 Procedure: Right Transposed Basilic Vein to Proximal Radial Artery; Surgeon: Santos Stephenson MD, FACS; Location: [facility] MAIN OR MEDICATIONS Prior to Admission [...] by: Heather Navarro MD, 02/04/2018 19:51 [facility] documented in thi s encounter ED Notes Venkatesh Bejarano MD - 02/04/2018 9:31 PM PDTFormatting of this note might be differe nt from the original. [facility] Estefani Tilley Emergency Department Encounter Note [address] [place] [address] PCP:Francisca Womack PA-C [phone] DIAGNOSIS: 1. Complications, dialysis, catheter, mechanical, initial encounter (HCC) 2. End stage renal disease (HCC) CHIEF COMPLAINT: Chief Complaint Patient presents with Medical Problem (Minor) Mode of Arrival: walk-in ED Room: 3 HPI Estefani Tilley is a 72 y.o. female who presents to the Emergency Department for evaluation . This patient was in [place] and apparently her tunneled dialysis catheter snagged [...] Overview: mastectomy L Oct 19 with chemo [facility] IMO Problem List [...] Placement; Surgeon: Nora Leo MD; Location : [facility] MAIN OR VEIN SURGERY Right 01/04/2018 Procedure: Right Transposed Basilic Vein to Proximal Radial Artery; Surgeon: Santos Stephenson MD, FACS; Location: [facility] MAIN OR CURRENT MEDICATIONS Previous Medications [...] were reviewed along with EMS notes and long-term record s if applicable. (See chart for [...] Portions of this chart were created with [employer]ence[employer] voice recognition software. Inadvertent so und alike [...] feels that she is a burden. LISA Beltrántalent acquisition manager aware of situation and takes pt to [facility]. Boris Choi RN - 02/04/2018 6:15 PM PDTPt arrives after her dialysis catheter fell out yesterday. Pt states that she was due to have dialysis today. documented in this encounter Miscellaneous Notes Op Note - Heather Navarro MD - 02/04/2018 11:12 PM PDT [facility] OPERATIVE REPORT PATIENT NAME: Estefani Tilley AGE: [...] signed by: Heather Navarro MD, 02/04/2018 23:12 [facility] rief Op Note - Heather Ramos MD - 02/04/2018 11:11 PM PDTFormatting of this note might be different f rom the original. Brief Operative Note Estefani Tilley 72 y.o. female 1945 [id number] Proc. Date 02/04/2018 - 02/05/2018 Preop Dx Needs dialysis catheter Postop Dx same Procedure INSERTION SHUNT HEMODIALYSIS W/ PERMACATH - removal right chest lesion/scar Anesthesia Dr Mckeon Surgeon Heather Navarro MD - Primary Lower In Supervisor none EBL 10 mL Findings Findings consistent with scheduled procedure. No other abnormalities found. Right IJ. Ultrasound used to cannulate the right IJ. X-ray used to follow the guidewire t o the SVC. Catheters flushed with 1.7 mL each heparinized saline. Complications none Specimens * No specimens in log * Drains none Electronically signed by: Heather Navarro MD 02/04/2018 23:11 [facility] documented in this encounter Plan of [...] postprocedural consultation. Dictated and Signed by: Rolan Sargnet | | | MD Reyna Electronically signed: [...] + | Performing | Address | City/State/[facility] | Phone Number | | Organization [...] ST. | [address] | [place], [place] | [phone] | | [facility] | | [address] | | | - LABORATORY | | [...] ST. | [address] | [place] | [phone] | | [facility] | | [address] | | | - LABORATORY | | [...] 3.57 (H) | 0.60 - 1.30 | [place] | | | | | mg/dL | [facility] | | | | | | MEDICAL | | | | | | CENTER - | | | | | | LABORATORY | | + + + + + + | eGFR if not | 13 (L)Comment: | >=60 | [place] | | | | GLOMERULAR FILTRATION | mL/min/1.73m2 | [facility] | | | GABONESE | RATE,ESTIMATED | | MEDICAL | | | | mL/min/1.32t5Oobd than | | CENTER - | | [...] + | [facility] | [address] | [place] | [phone] | | [facility] | | [address] | | | - LABORATORY | | [...] [address] | [place] | [phone] | | [facility] | | [address] | | | [...] agent. | | | Ondansetron IV is commodity specialist | | | out. If patient cannot [...]
--- OUTSIDE RECORDS SUMMARY | ~2020-03-23 | XMS | Encounter Summary ---
Demographics + + + | Address | [address] | | | [place] [address] | + + + | Home Phone [...] | Author | [facility] | | | and [place] | + + + | Organization | [facility] | | | and [place] | + + + | Address | Unknown | + + + | Phone | Unavailable | + + + Support + + + + + | Name | Relationship | Address | Phone | + + + + + | India Tilley | ECON | [address] | | | | | [place], [place] | | | | | [address] | | + + + + + [...] Team Providers + +------+ + | Care Dialysis Equipment Technician Name | Role | Phone | [...] [address] [place] | | | | | [place], [place] | [place] [address] | | | | | [address] | [phone] | | | | | [phone] | | | +--------+ + + + [...] HD in 018and then was DC to [facility] [place], [place]. Unfortunat brandy, she has had intermittent [...] Gopi Muñoz DO. 11/19/19 1:05 PM CC: [facility], [place] [facility], [place], [place]. document ed in this encounter Plan [...]
--- OUTSIDE RECORDS SUMMARY | ~2020-03-23 | XMS | Encounter Summary ---
Demographics + + + | Address | [address] | | | [place] [address] | + + + | Home Phone [...] Author | [facility] | | | and [place] | + + + | Organization | [facility] | | | and [place] | + + + | Address | Unknown | + + + | Phone | Unavailable | + + + Support + + + + + | Name | Relationship | Address | Phone | + + + + + | India Tilley | ECON | [address] | | | | | [place], [place] | | | | | [address] | | + + + + + [...] Providers + +------+ + | Care Building Surveyor Name | Role | Phone | + +------+ + PCP | Unavailable | + +------+ + Encounter Details +--------+ + + + + | Date | Type | Department | Care Team | Description | +--------+ + + + + | 10/14/ | Hospital | [facility] | | | | 2006 - | Encounter | MED CTR CANCER | | | | | | [address] | | | | 11/10/ | | [place] | | | | 2006 | | [address] | | | | | | [phone] | | | +--------+ + + + [...]
--- OUTSIDE RECORDS SUMMARY | ~2020-03-23 | XMS | Encounter Summary ---
Demographics + + + | Address | [address] | | | [place] [address] | + + + | Home Phone [...] | [facility] | | | and [place] | + + + | Organization | [facility] | | | and [place] | + + + | Address | Unknown | + + + | Phone | Unavailable | + + + Support + + + + + | Name | Relationship | Address | Phone | + + + + + | India Tilley | ECON | [address] | | | | | [place], [...] Team Providers + +------+ + | Care Fur Polisher Name | Role | Phone | + +------+ + PCP | Unavailable | + +------+ + Encounter Details +--------+ + + + + | Date | Type | Department | Care Team | Description | +--------+ + + + + | 01/05/ | Hospital | [facility] | Scott Koroma, | Closed fracture of | | 2019 | Encounter | MED CTR [address] XRAY | [address] | neck of right femur, | | | | [address] [place] | [place], [place] | initial encounter | | | | [place] | [address] | ([facility]); Right hip | | | | [address] | | pain | | | | [phone] | | | +--------+ + + + [...]
--- OUTSIDE RECORDS SUMMARY | ~2020-03-23 | XMS | Encounter Summary ---
Demographics + + + | Address | [address] | | | [place] [address] | + + + | Home Phone [...] Author | [facility] | | | and [place] | + + + | Organization | [facility] | | | and [place] | + + + | Address | Unknown | + + + | Phone | Unavailable | + + + Support + + + + + | Name | Relationship | Address | Phone | + + + + + | India Tilley | ECON | [address] | | | | | [place], [place] | | | | | [address] | | + + + + + [...] Team Providers + +------+ + | Care Soap Tender Name | Role | Phone | + +------+ + PCP | Unavailable | + +------+ + Reason for Visit +--------+--------+ + | Reason | Onset | Comments | | | Date | | +--------+--------+ + | Other | 03/09/ | appointment | | | 2018 | | +--------+--------+ + Encounter Details +--------+ + + + + | Date | Type | Department | Care Team | Description | +--------+ + + + + | 03/09/ | Telephone | [facility] | CarlosSantos | Other (appointment) | | 2018 | | SURGERY [address] | MD Kinga, FACS [address] | | | | [address] [place], [place] | [address] [facility] | | | | | [address] | [place] [address] | | | | | [phone] | [phone] | | | | | | | [...] this encounter Miscellaneous Notes Telephone Encounter - Minoo Quinones - 03/09/2018 9:34 AM PDTSpoke with patient to [facility] scheduled with Dr Stephenson 03/10/19 at 0910, patient stated she drives from [place] and that 0910 is early for her, she wasn't sure if she could make it, call was then disconnected, I returned call but was unable to reach patient. documented in this encounter Plan of Treatment Not on filedocumented as of this encounter Visit Diagnoses Not on filedocumented in this encounter"
--- OUTSIDE RECORDS SUMMARY | ~2020-03-23 | XMS | Encounter Summary ---
Demographics + + + | Address | [address] | | | [place] [address] | + + + | Home Phone [...] | Author | [facility] | | | and [place] | + + + | Organization | [facility] | | | and [place] | + + + | Address | Unknown | + + + | Phone | Unavailable | + + + Support + + + + + | Name | Relationship | Address | Phone | + + + + + | India Tilley | ECON | [address] | | | | | [place], [place] | | | | | [address] | | + + + + + [...] Team Providers + +------+ + | Care Shells Inspector Name | Role | Phone | [...] [address] [place] | | | | | [place], [place] | [place] [address] | | | | | [address] | [phone] | | | | | [phone] | | | +--------+ + + + [...] was instructed to go to ER at [facility] as soon as she is back in town. She reports, per [facility], entire vania neled dialysis catheter was out. She reports that this information was given to Dr. Moseley as she is seeing dialysis patients at [facility] this month. elephone Encounter - Dori Romero [...] report that while out of town in [facility] her dialysis catheter either fell out or part of th e catheter fell off. She reports that patient is not clear on what exactly happened. She was instructed to go to the ER. Patient reports being seen at [facility] in [place], [place] where she was told that they did not have the correct "parts" to fix the catheter an d a tagederm was placed over it. She also reports that patient was planning to miss treatmen t today as well due to being out of town. Request for ER report sent to [place]. Dr. Muñoz notified. Will continue to try and c ontact patient. docuallison villanueva in this encounter Plan of Treatment Not on filedocumented as of this encounter Visit Diagnoses Not on filedocumented in this encounter
--- OUTSIDE RECORDS SUMMARY | ~2020-03-23 | XMS | Encounter Summary ---
Demographics + + + | Address | [address] | | | [place] [address] | + + + | Home Phone [...] | Author | [facility] | | | and [place] | + + + | Organization | [facility] | | | and [place] | + + + | Address | Unknown | + + + | Phone | Unavailable | + + + Support + + + + + | Name | Relationship | Address | Phone | + + + + + | India Tilley | ECON | [address] | | | | | [place], [place] | | | | | [address] | | + + + + + [...] Providers + +------+ + | Care Sales Service Professional Name | Role | Phone | + [...] | | | | | [address] [facility] | [address] | | | | | [place], [place] | [place] [address] | | | | | [address] | [phone] | | | | | [phone] | | | +--------+ + + + [...]
--- OUTSIDE RECORDS SUMMARY | ~2020-03-23 | XMS | Encounter Summary ---
Demographics + + + | Address | [address] | | | [place] [address] | + + + | Home Phone [...] + | Author | [facility] | | | and [place] | + + + | Organization | [facility] | | | and [place] | + + + | Address | Unknown | + + + | Phone | Unavailable | + + + Support + + + + + | Name | Relationship | Address | Phone | + + + + + | India Tilley | ECON | [address] | | | | | [place], [place] | | | | | [address] | | + + + + + [...] Team Providers + +------+ + | Care Technology Engineer Name | Role | Phone | [...] [place], | | | | | ([facility]) | [place], | [place] [address] | | | | | | [place] [address] | Phone: | | | | | | Phone: | [phone] | | | | | | [phone] | Fax: | | | | | | Fax: | [phone] | | | | | | [phone] | | +--------+ + + + + [...] [address] [place] | ([facility]) (Primary Dx) | | | | [place], [place] | [place] [address] | | | | | [address] | [phone] | | | | | [phone] | | | +--------+ + + + [...]
--- OUTSIDE RECORDS SUMMARY | ~2020-03-23 | XMS | Encounter Summary ---
Demographics + + + | Address | [address] | | | [place] [address] | + + + | Home Phone [...] Author | [facility] | | | and [place] | + + + | Organization | [facility] | | | and [place] | + + + | Address | Unknown | + + + | Phone | Unavailable | + + + Support + + + + + | Name | Relationship | Address | Phone | + + + + + | India Tilley | ECON | [address] | | | | | [place], [...] Providers + +------+ + | Care Lead Net Software Developer Name | Role | Phone | [...] [address] | | | | | ([facility]) | | [address] | | | | | Procedures | Fax: | [place], | | | | | [place] OFFICE | | [place] [address] | | | | | OUTPATIENT | | Phone: | | | | | VISIT 25 | | [phone] | | | | | MINUTES | | Fax: | | | | | | | [phone] | +--------+--------+ + + + + Encounter [...] | dialysis (HCC) | | | | [place], [place] | [place] [address] | (Primary Dx) | | | | [address] | [phone] | | | | | [phone] | | | +--------+ + + + [...] Gopi Muñoz DO - 2019 12:00 PM [id number] sig javi by Gopi Muñoz DO at 2019 8:58 PM PDT documented in this encounter Progress Notes Gopi Muñoz DO - 2019 12:00 PM PDT Subjective: DIALYSIS NOTE Patient ID: Estefani Tilley is a 74 y.o. female. HPI Comments: I inadvertently missed Estefani on dialysis rounds at [facility] on 05/08/2019. 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 There has been a great deal of confusion about her outpatient antibiotics, and hypertension regimen, therefore, I asked her to my office today. Apparently she was discharged from [facility] on 03/31/2019 with acute low back pain, fluid collection and a diagnosis of T11-T12 verteb ral discitis/osteomyelitis. CT-guided aspiration/biopsy did not reveal an organism. Theref ore she was discharged on 03/31 on outpatient IV Vanco, 500 mg, Q. HD treatment MWF, and IV cefepime daily through 05/04/2019. 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 (She does appear to a mbulate independently with only a cane for light assistance). PAST MEDICAL HISTORY: 1. ESRD 2 diabetic glomerulosclerosiswith the patient beginning Inpt HD in 018and then was DC to [facility] [place], [place]. Unfortunat brandy, she has had intermittent [...] get her back to Dr. Jessie Jansen, [facility], [place]. Will repeat one more ESR [...] to go to write a tonight to picked edge sewing machine operator her meds and that she should take the first dose in each AM prior to dialysis as well. She was A&O x3 during this discussion. I think that she understands her risk of CV disease, and stroke if she does no t take her meds. 4. Will relay the above to the charge nurse at [facility], LISA Marshall by secure text. 5. My partner, Dr. Magui Moseley will check in on her in 2 weeks at [facility]. 6. Lastly she is concerned about breakthrough pain. I agreed to give her generic Vicodin 5 mg / 325 mg, 1 tab, Q 12 Hours, #40, no refill. 7. Also, Estefani and her family would like to explore whether the main campus medical center or [facility] are could h el transport her back and forth to the [facility] clinic for her treatments, thrice weekly. [place] states that financially this is becoming a hardship for her. Electronically signed by Gopi Muñoz DO. 05/11/19 11:02 CC: Blaine Jansen [place], [place], [facility], [place] [facility], [place], [place]. document ed in this encounter Plan [...]
--- OUTSIDE RECORDS SUMMARY | ~2020-03-23 | XMS | Encounter Summary ---
Demographics + + + | Address | [address] | | | [place] [address] | + + + | Home Phone [...] Author | [facility] | | | and [place] | + + + | Organization | [facility] | | | and [place] | + + + | Address | Unknown | + + + | Phone | Unavailable | + + + Support + + + + + | Name | Relationship | Address | Phone | + + + + + | India Tilley | ECON | [address] | | | | | [place], [place] | | | | | [address] | | + + + + + [...] Team Providers + +------+ + | Care Degree Clerk Name | Role | Phone | [...] + + | 01/05/ | Office | [facility] | Scott Koroma, | Closed fracture of | | 2019 | Visit | ORTHOPEDIC SURGERY | [address] | neck of right femur, | | | | [address] [place] | [place] | initial encounter | | | | [place] | [address] | ([facility]) (Primary Dx); | | | | [address] | | Right hip pain | | | | [phone] | | | +--------+---------+ + + + [...]
--- OUTSIDE RECORDS SUMMARY | ~2020-03-23 | XMS | Encounter Summary ---
Demographics + + + | Address | [address] | | | [place] [address] | + + + | Home Phone [...] | Author | [facility] | | | and [place] | + + + | Organization | [facility] | | | and [place] | + + + | Address | Unknown | + + + | Phone | Unavailable | + + + Support + + + + + | Name | Relationship | Address | Phone | + + + + + | India Tilley | ECON | [address] | | | | | [place], [place] | | | | | [address] | | + + + + + [...] Team Providers + +------+ + | Care Owner [employer] Name | Role | Phone | [...] | | [place] | [place] [address] | | | | | [address] | [phone] | | | | | [phone] | | | +--------+ + + + [...]
--- OUTSIDE RECORDS SUMMARY | ~2020-03-23 | XMS | Encounter Summary ---
Demographics + + + | Address | [address] | | | [place] [address] | + + + | Home Phone [...] [facility] | | | and [place] | + + + | Organization | [facility] | | | and [place] | + + + | Address | Unknown | + + + | Phone | Unavailable | + + + Support + + + + + | Name | Relationship | Address | Phone | + + + + + | India Tilley | ECON | [address] | | | | | [place], [place] | | | | | [address] | | + + + + + [...] Team Providers + +------+ + | Care Cartography Supervisor Name | Role | Phone | + +------+ + PCP | Unavailable | + +------+ + Encounter Details +--------+ + + + + | Date | Type | Department | Care Team | Description | +--------+ + + + + | 02/13/ | [facility] | [facility] | Patricia, | | | 2007 - | Encounter | MED CTR CANCER | Venkatesh Forte MD [address] | | | | CENTER [address] | [address] | | | 03/12/ | | [place] | [place] [address] | | | 2007 | | [address] | [phone] | | | | | [phone] | | | +--------+ + + + [...]
--- OUTSIDE RECORDS SUMMARY | ~2020-03-23 | XMS | Encounter Summary ---
Demographics + + + | Address | [address] | | | [place] [address] | + + + | Home Phone [...] | Author | [facility] | | | and [place] | + + + | Organization | [facility] | | | and [place] | + + + | Address | Unknown | + + + | Phone | Unavailable | + + + Support + + + + + | Name | Relationship | Address | Phone | + + + + + | India Tilley | ECON | [address] | | | | | [place], [place] | | | | | [address] | | + + + + + [...] Team Providers + +------+ + | Care Medicinal Plant Picker Name | Role | Phone | + [...] | [place] | [place] [address] | | | | | [place] [address] | | | | | | [phone] | | | +--------+ + + + [...] for comparison only - no result from [place]. | [facility] | + + + + +---------+ + + | Performing | Address | City/State/Zipcode | Phone Number | | Organization | | | | + +---------+ + + | [facility] | | | | + +---------+ + + documented in this encounter Visit Diagnoses Not on filedocumented in this encounter"
--- OUTSIDE RECORDS SUMMARY | ~2020-03-23 | XMS | Encounter Summary ---
Demographics + + + | Address | [address] | | | [place] [address] | + + + | Home Phone [...] | Author | [facility] | | | and [place]it[place] | + + + | Organization | [facility] | | | and [place] | + + + | Address | Unknown | + + + | Phone | Unavailable | + + + Support + + + + + | Name | Relationship | Address | Phone | + + + + + | India Tilley | ECON | [phone] | | | | | [place], [place] | | | | | [address] | | + + + + + [...] Team Providers + +------+ + | Care Teacher Aide Clerical Name | Role | Phone | + [...] + + | 02/04/ | Emergency | [facility] | [place], | Complications, | | 2017 - | | MED CTR SUR[facility]ICAL | Venkatesh Esteban MD [address] | dialysis, catheter, | | | | [address] [place] | [address] [place] | mechanical, initial | | 02/05/ | | [place] [address] | [place] [address] | encounter ([facility]) | | 2018 | | [phone] | [phone] | (Primary Dx); End | | | | | | stage renal disease | | | | | Heather Navarro, | ([facility]) | | | | | [address] | | | | | | [place], [place] | | | | | | [address] | | | | | | | [...] Office Phone Number to Contact Dr Navarro: [phone] Navarro's Office to schedule a follow up visit as needed - you will follow up with Dr Stephenson and at the dialysis center. Our office is located in the [facility] next door to Urgent Care. Other [...] Wednesday 9:00-2:00PM. Call the General Surgery Office [phone] for the following: Persistent vomiting Diarrhea lasting [...] as possible. Limit sports and strenuous activities [id number]. Shower as usual. Gently wash around your [...] Navarro MD - 02/04/2018 7:51 PM PDT [facility] ADMIT HISTORY AND PHYSICAL Primary Care [...] in [place] and then came here from [facility] in [place]. She recently had an [...] Placement; Surgeon: Nora Leo MD; Location : [facility] MAIN OR VEIN SURGERY Right 01/04/2018 Procedure: Right Transposed Basilic Vein to Proximal Radial Artery; Surgeon: Santos Stephenson MD, FACS; Location: [facility] MAIN OR MEDICATIONS Prior to Admission medications [...] by: Heather Navarro MD, 02/04/2018 19:51 [facility] documented in thi s encounter ED Notes Venkatesh Bejarano MD - 02/04/2018 9:31 PM PDTFormatting of this note might be differe nt from the original. [facility] Estefani Tilley Emergency Department Encounter Note [address] [place] [id number] PCP:Francisca Womack PA-C [phone] DIAGNOSIS: 1. Complications, dialysis, catheter, mechanical, initial encounter (HCC) 2. End stage renal disease (HCC) CHIEF COMPLAINT: Chief Complaint Patient presents with Medical Problem (Minor) Mode of Arrival: walk-in ED Room: 3 HPI Estefani Tilley is a 72 y.o. female who presents to the Emergency Department for evaluation . 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 Complications, dialysis, catheter, mechanical, initial encounter ([facility]) T82.49XA 996.1 2. End stage renal disease (HCC) N18.6 585.6 Portions of this chart were created with Hello [employer] voice recognition software. Inadvertent so und alike [...] feels that she is a burden. LISA Beltránrecovery unit operator aware of situation and takes pt to [facility]. Boris Choi RN - 02/04/2018 6:15 PM PDTPt arrives after her dialysis catheter fell out yesterday. Pt states that she was due to have dialysis today. documented in this encounter Miscellaneous Notes Op Note - Heather Navarro MD - 02/04/2018 11:12 PM PDT [facility] OPERATIVE REPORT PATIENT NAME: Estefani [...] signed by: Heather Navarro MD, 02/04/2018 23:12 [facility] rief Op Note - Heather Ramos MD - 02/04/2018 11:11 PM PDTFormatting of this note might be different f rom the original. Brief Operative Note Estefani Tilley 72 y.o. female 1945 [id number] Proc. Date 02/04/2018 - 02/05/2018 Preop Dx Needs dialysis catheter Postop Dx same Procedure INSERTION SHUNT HEMODIALYSIS W/ PERMACATH - removal right chest lesion/scar Anesthesia Dr Mckeon Surgeon Heather Navarro MD - Primary Business Development Assistant none EBL 10 mL Findings Findings consistent with scheduled procedure. No other abnormalities found. Right IJ. Ultrasound used to cannulate the right IJ. X-ray used to follow the guidewire t o the SVC. Catheters flushed with 1.7 mL each heparinized saline. Complications none Specimens * No specimens in log * Drains none Electronically signed by: Heather Navarro MD 02/04/2018 23:11 [facility] documented in this encounter Plan of [...] [facility]. | [address] | [place] | [phone] | | [facility] | | [address] | | | - LABORATORY | | [...] ST. | [address] | [place], [place] | [phone] | | [facility] | | [address] | | | - LABORATORY | | [...] 3.57 (H) | 0.60 - 1.30 | [facility] | | | | | [...] mL/min/1.73m2 | [facility] | | | [place] | RATE,ESTIMATED | | MEDICAL | | | | mL/min/1.77r2Aeot than | | CENTER - | | [...] [address] | [place] | [phone] | | [facility] | | [address] | | | - LABORATORY | | [...] ST. | [address] | [place] | [phone] | | [facility] | | [address] | | | - LABORATORY | | [...] agent. | | | Ondansetron IV is table worker packager | | | out. If patient cannot [...]
--- OUTSIDE RECORDS SUMMARY | ~2020-03-23 | XMS | Encounter Summary ---
Demographics + + + | Address | [address] | | | [place] [address] | + + + | Home Phone [...] Author | [facility] | | | and [place]it[place] | + + + | Organization | [facility] | | | and [place] | + + + | Address | Unknown | + + + | Phone | Unavailable | + + + Support + + + + + | Name | Relationship | Address | Phone | + + + + + | India Tilley | ECON | [phone] | | | | | [place], [place] | | | | | [address] | | + + + + + [...] Team Providers + +------+ + | Care Defense Travel Administrator Name | Role | Phone | [...] | | | | [place] | [id number] | (HCC) (Primary Dx); | | | | [address] | | Right hip pain; H/O | | | | [phone] | | major orthopedic | | | [...]
--- OUTSIDE RECORDS SUMMARY | ~2020-03-23 | XMS | Encounter Summary ---
Demographics + + + | Address | [address] | | | [place] [address] | + + + | Home Phone [...] Author | [facility] | | | and [place] | + + + | Organization | [facility] | | | and [place] | + + + | Address | Unknown | + + + | Phone | Unavailable | + + + Support + + + + + | Name | Relationship | Address | Phone | + + + + + | India Tilley | ECON | [address] | | | | | [place], [place] | | | | | [address] | | + + + + + [...] Team Providers + +------+ + | Care Broomcorn Press Feeder Name | Role | Phone [...] [place] | | | | | | [address] | | | | | | [phone] | | | +--------+ + + + [...]
--- OUTSIDE RECORDS SUMMARY | ~2020-03-23 | XMS | Encounter Summary ---
Demographics + + + | Address | [address] | | | [place] [address] | + + + | Home Phone [...] + | Author | [facility] | | | and [place] | + + + | Organization | [facility] | | | and [place] | + + + | Address | Unknown | + + + | Phone | Unavailable | + + + Support + + + + + | Name | Relationship | Address | Phone | + + + + + | India Tilley | ECON | [address] | | | | | [place], [place] | | | | | [address] | | + + + + + [...] Team Providers + +------+ + | Care Cushion Stuffer Name | Role | Phone | + [...] | [place] | [place] [address] | | | | | [place] [address] | | | | | | [phone] | | | +--------+ + + + [...] for comparison only - no result from [place]. | [facility] | + + + + +---------+ + + | Performing | Address | City/State/Zipcode | Phone Number | | Organization | | | | + +---------+ + + | [facility] | | | | + +---------+ + + documented in this encounter Visit Diagnoses Not on filedocumented in this encounter"
--- OUTSIDE RECORDS SUMMARY | ~2020-03-23 | XMS | Encounter Summary ---
Demographics + + + | Address | [address] | | | [place] [address] | + + + | Home Phone [...] Author | [facility] | | | and [place] | + + + | Organization | [facility] | | | and [place] | + + + | Address | Unknown | + + + | Phone | Unavailable | + + + Support + + + + + | Name | Relationship | Address | Phone | + + + + + | India Tilley | ECON | [address] | | | | | [place], [place] | | | | | [address] | | + + + + + [...] Team Providers + +------+ + | Care Chip Mixing Machine Operator Name | Role | Phone | + +------+ + PCP | Unavailable | + +------+ + Encounter Details +--------+ + + + + | Date | Type | Department | Care Team | Description | +--------+ + + + + | 11/24/ | Hospital | [facility] | | | | 2006 - | Encounter | MED [facility] CAN[facility] | | | | | | [address] | | | | 12/11/ | | [place] | | | | 2006 | | [address] | | | | | | [phone] | | | +--------+ + + + [...]
--- OUTSIDE RECORDS SUMMARY | ~2020-03-23 | XMS | Encounter Summary ---
Demographics + + + | Address | [address] | | | [place] [address] | + + + | Home Phone [...] [facility] | | | and Kamaljitana | + + + | Organization | [facility] | | | and [place] | + + + | Address | Unknown | + + + | Phone | Unavailable | + + + Support + + + + + | Name | Relationship | Address | Phone | + + + + + | India Tilley | ECON | [address] | | | | | [place], [place] | | | | | [address] | | + + + + + [...] Team Providers + +------+ + | Care Graphics Manager Name | Role | Phone | [...] stage 5, GFR | [place], [place] | [address] | | | | | less than | [address] | Phone: | | | | | 15 ml/min | Phone: | [phone] | | | | | (HCC) Type | [phone] | Fax: | | | | | 2 DM with | Fax: | [phone] | | | | | CKD stage 5 | [phone] | | | | | | and [...] | 11/01/ | Hospital | [facility] | Gopi Muñoz | Hypoglycemia; | | 2018 - | Encounter | [facility] | M, DO [address] | Hypothermia, initial | | | | [address] | [address] | encounter; CKD | | 11/09/ | | [place] [address] | [place] [address] | (chronic kidney | | 2018 | | [phone] | [phone] | disease) stage 5, | | | | | | GFR less than 15 | | | | | Rupal Laguna MD | ml/min ([facility]); | | | | | [address] | Essential | | | | | [place] | hypertension; | | | | | [address] | Sepsis, due to | | | | | | unspecified organism | | | | | Nora Leo MD | ([facility]); Uremia; | | | | | [address] [facility] | Controlled type 2 | | | | | [place] [address] | diabetes mellitus | | | | | [phone] | with stage 5 chronic | | | | | | kidney disease not | | | | | | on chronic dialysis, | | | | | | with long-term | | | | | | current use of | | | | | | insulin ([facility]); End | | | | | | stage renal disease | | | | | | ([facility]); Type 2 DM | | | | | | with CKD stage 5 and | | | | | | hypertension ([facility]); | | | | | | Severe | | | | | | protein-calorie | | | | | | malnutrition ([facility]); | | | | | | Anemia in chronic | | | | | | kidney disease, on | | | | | | chronic dialysis | | | | | | ([facility]); Streptococcal | | | | | | bacteremia; Acute | | | | | | hemodialysis | | | | | | encounter ([facility]) | +--------+ + + + + Social [...] might be differ ent from the original. [place] HOSPITALIST DISCHARGE SUMMARY Pt. Name/Age/: Ara [...] insulin glargine 100 units/mL injection (vial) aka: [facility]: Please refer to the H&P for full details and the most recent rounding rounding (progress) n ote. In short this is a 72-year-old woman, history of hypertension, diabetes mellitus type 2 on insulin, chronic kidney disease of stage V, CAD, who presented to [facility] after be ing found down in [...] n/a DISPOSITION AND DISCHARGE INSTRUCTIONS: Follow-up Information [facility] On 11/10/2017. Why: 1:00pm Contact information: [address] [place] [id number] Follow up In 3 days. Francisca Womack PA-C In 3 days. Specialty: Internal Medicine Contact information: [address] [place] [address] Hemodialysis In 1 day. Contact information: Appointment at 1:30 PM Condition: Patient being discharged with condition improved and stable Diet: renal, carbohydrate controlled Greater than 30 minutes were spent on discharge and coordination of post-hospital care. Electronically signed by: Mayelin Vega MD, 11/09/2017 11:06 [facility] Portions of this chart may have been created with enEvolv voice recognition software. Occasi onal wrong-word or sound-alike substitutions may have occurred due to the inherent mckeon itations of voice recognition software. Please read the chart carefully and recognize, using context, where these substitutions have occurred documented in this encounter Discharge Instructions AttachmentsThe following attachments cannot be sent through Care Everywhere.Balancing Calci um and Phosphorus, Kidney Disease (Berm[place]ian)Hemodialysis ([place]ermudian)documented in this encounte r Medications at Time [...] Muñoz, DO - 11/09/2017 6:18 PM PST [facility] [address] [address] PROGRESS NOTE Pt. Name/Age/: Ara Tilley 72 y.o. 1945 Med. Record Number: [id number] Date of admission: 11/01/2017 NEPHROLOGY HPI - [...] Complete 10 days total of AB's. [facility] Nora Headley MD - 11/09/2017 4:24 PM [...] Chayo Rodarte RN 11/09/2017 16:05 Dalia Finnegan [employer] - 11/09/2017 11:00 AM PSTAuthoashwini met with [...] and she agreed. Nikki was raised in [place] and in [place], [place]. She has two brothers and two sisters, and h ad 4 children of her own. Her oldest child, daughter, two months ago. Nikki is gri eving her loss and teared up while talking about her. Her other children [place] and one son has been in retirement for 23 years. She hasn't seen him since he was arr ested and is hopeful she will get to see him next year, as he is schedule to be released at that time. 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 She has at least 4 ye ars post high school education and studied [employer]. In the years prior to [facility] [facility], she worked at [employer]. Nikki's mother had chronic kidney disease and [...] and picking up and going to the [facility] in [place]. She must plan it out, and that feels antithetical to her nature. Raj escamilla was present and attentive while she discussed her grief around losing her family member s and her lifestyle, offered supportive veterans' counselor. Chayo Ramirez RN - 11/09/2017 10:00 AM Cam RN arrived at [facility]'s room around 0800 to begin dialysis. [...] up to do things." This RN reordered [facility] breakfast with items that she chose and gave her time to eat while straightening the room up. Time allowed to use the restroom prior to initiating dialysis. After eating and having time to get situated Ara appeared more relaxed and was ok with s tarting dialysis. Electronically signed by: Chayo Rodarte RN 11/09/2017 10:38 India aSntiago ARN P - 11/08/2017 6:50 PM PSTThis provider, Palliative Care COLOR MATCHER, met briefly with "Keila Blunt ams this [...] might be different from the tricia ayo [facility] HOSPITALIST PROGRESS NOTE Patient: Ara Tilley : 1945: Age: 72 y.o. MedRec: [id number] Admission date: 11/01/2017 Hospital day # : [...] mg/m L 0.25 mg [employer] [facility] Special Delivery Worker Nora Leo MD [MAR Hold] labetalol (NORMODYNE) [...] nephrology recs -Nephro rec permacath needed for nursing home dialysis -continue ferrlecit and Epogen 3. CAD- no signs of ACS, EKG RBBB, trop 0.03 at OSH -Continue aspirin, lipitor 4. Hypothyroidism -TSH WNL -Continue levothyroxine 5. HTN uncontrolled -Continue Labetalol and furosemide -Continue losartan 25 mg daily PPX: HSQ FEN: renal Mayelin Vega 11/08/2017 11:50 [facility] Nora Headley MD - 11/08/2017 10:06 [...] might be different f rom the original. [facility] [place] HOSPITALIST PROGRESS NOTE Patient: Ara Tilley : 1945: Age: 72 y.o. MedRec: [id number] Admission date: 11/01/2017 Hospital day # : [...] Procedure Component Value Units Date/Time Culture, Blood [[id number]] (Normal) Collected: 11/04/172121 Order Status: Completed Lab Status: Preliminary result Updated: 11/05/17930 Specimen: Blood from Line Culture No growth: Monitored continually by instrument for 5 days Culture, Blood [[id number]] (Normal) Collected: 11/04/172102 Order Status: Completed Lab [...] Wednesday to determine if permacath needed for nursing home dialysis -continue ferrlecit and Epogen 3. CAD- no signs of ACS, EKG RBBB, trop 0.03 at OSH -Continue aspirin, lipitor 4. Hypothyroidism -TSH WNL -Continue levothyroxine 5. HTN uncontrolled -Continue Labetalol and furosemide -restart losartan 25 mg daily PPX: HSQ FEN: renal Mayelin Vega 11/07/2017 12:57 [facility] Cordell Palmer MD - 11/07/2017 9:43 AM PSTFormatting of this note might be different from the maynor rollins [facility] NEPHROLOGY progress note Patient: Ara Tilley [...] Darlin Moseley MD Electronically signed: 11/07/2017 9:43 [facility] NEPHROLOGY Olegario Keen M D - 11/06/2017 2:15 PM PST [facility] [place] HOSPITALIST PROGRESS NOTE Patient: Ara Tilley : 1945: Age: 72 y.o. MedRec: [id number] Admission date: 11/01/2017 Hospital day # : [...] Procedure Component Value Units Date/Time Culture, Blood [[id number]] (Normal) Collected: 11/04/172121 Order Status: Completed Lab Status: Preliminary result Updated: 11/05/17930 Specimen: Blood from Line Culture No growth: Monitored continually by instrument for 5 days Culture, Blood [[id number]] (Normal) Collected: 11/04/172102 Order Status: Completed Lab Status: Preliminary result Updated: 11/05/17 09 Specimen: Blood from Line Culture No growth: Monitored continually by instrument for 5 days Culture, Blood [[id number]] (Normal) Collected: 11/03/17 1506 Order Status: Completed [...] to determ ine if permacath needed for nursing home dialysis CAD no signs of ACS, [...] Oral BID PRN Olegario Peng 11/06/2017 14:15 [facility] Darlin Palmer M D - 11/06/2017 9:10 AM PST [facility] NEPHROLOGY progress note Patient: Ara Tilley [...] Darlin Moseley MD Electronically signed: 11/06/2017 9:11 [facility] NEPHROLOGY Olegario Keen M D - 11/05/2017 2:08 PM PST [facility] [place] HOSPITALIST PROGRESS NOTE Patient: Ara Tilley : 1945: Age: 72 y.o. MedRec: [id number] Admission date: 11/01/2017 Hospital day # : [...] Procedure Component Value Units Date/Time Culture, Blood [[id number]] (Normal) Collected: 11/04/172121 Order Status: Completed Lab Status: Preliminary result Updated: 11/05/17 0931 Specimen: Blood from Line Culture No growth: Monitored continually by instrument for 5 days Culture, Blood [[id number]] (Normal) Collected: 11/04/17 210 Order Status: Completed Lab Status: Preliminary result Updated: 11/05/17 0911 Specimen: Blood from Line Culture No growth: Monitored continually by instrument for 5 days Culture, Blood [[id number]] (Normal) Collected: 11/03/17 1506 Order Status: Completed Lab Status: Preliminary result Updated: 11/04/17 031 Specimen: Blood from Peripheral Blood Culture No growth: Monitored continually by instrument for 5 days Culture, Blood [[id number]] (Abnormal) Collected: 11/03/17 0812 Order Status: Completed Lab Status: Preliminary result Updated: 11/05/17 0751 Specimen: Blood from Arm, Left Culture Positive Blood Culture (AA) Staphylococcus coagulase negative Comment: Identification and susceptibility to follow. Probable contaminant Gram Stain Result Gram positive cocci in clusters Comment: 2 of 4 bottles positive Culture, Respiratory, Lower, Smear [[id number]] Collected: 11/03/17 0727 Order Status: Completed Lab [...] Oral BID PRN Olegario Peng 11/05/2017 14:08 [facility] Darlin Palmer M D - 11/05/2017 1:53 PM PST [facility] NEPHROLOGY progress note Patient: Ara Tilley [...] Darlin Moseley MD Electronically signed: 11/05/2017 13:53 [facility] NEPHROLOGY tGopi rick , DO - 11/04/2017 6:53 PM PST [facility] [address] [place] [address] PROGRESS NOTE Pt. Name/Age/: Ara Tilley 72 y.o. 1945 Med. Record Number: [id number] Date of admission: 11/01/2017 NEPHROLOGY HPI - [...] to high Inpt case load here at [facility]. 2. probable pyelonephritis?--Day #3 Ceftriaxone, [...] coverage of both organisms, Q 48H. [facility] hase, Queenie Mcgraw RN - 11/04/2017 10:23 AM PSTPatient transferred from ICU into room 307. Oriented to room an d call light. Bed alarm set. Call light in place. Remains on 2L via nasal canula. Makes need s known. Amanda Keen MD - 11/04/2017 7:21 AM PSTFormatting of this note might be different from the origin al. [place] HOSPITALIST PROGRESS NOTE Patient: Ara Tilley : 1945: Age: 72 y.o. MedRec: [id number] Admission date: 11/01/2017 Hospital day # : [...] Procedure Component Value Units Date/Time Culture, Blood [[id number]] (Normal) Collected: 11/03/17 1506 Order Status: Completed Lab Status: Preliminary result Updated: 11/04/17 0311 Specimen: Blood from Peripheral Blood Culture No growth: Monitored continually by instrument for 5 days Culture, Blood [[id number]] (Normal) Collected: 11/03/17 0812 Order Status: Completed Lab Status: Preliminary result Updated: 11/03/17 2041 Specimen: Blood from Arm, Left Culture No growth: Monitored continually by instrument for 5 days Culture, Respiratory, Lower, Smear [[id number]] Collected: 11/03/17 0727 Order Status: Completed Lab Status: Preliminary result Updated: 11/03/17 1028 Specimen: Respiratory from Sputum, expectorated Gram Stain Result 3+ White Blood Cells 2+ Epithelial cells 2+ Gram positive cocci 2+ Gram positive bacilli 1+ Hyphael elements Influenza A and B RNA, NAAT [[id number]] (Normal) Collected: 11/02/17 1050 Order Status: Completed Lab Status: Final result Updated: 11/02/17 1125 Specimen: Respiratory from Nares Influenza A PCR Negative Influenza B PCR Negative Culture, Urine [[id number]] Collected: 11/02/17 0740 Order Status: Completed Lab Status: Preliminary result Updated: 11/03/17 1013 Specimen: Urine Culture >100,000 CFU/ml Lactose Fermenting Gram Negative Bacilli Comment: Identification and susceptibility to follow. Culture, Blood [[id number]] (Normal) Collected: 11/02/17 0024 Order Status: Completed Lab Status: Preliminary result Updated: 11/02/17 1241 Specimen: Blood from Peripheral Blood Culture No growth: Monitored continually by instrument for 5 days Culture, Blood [[id number]] (Abnormal) Collected: 11/02/17 0019 Order Status: Completed [...] 15:14 by Edison Short. Narrative: Culture, MRSA [[id number]] Collected: 11/01/17 2146 Order Status: Completed Lab [...] in chains -Repeat UA (+), urine culture >364776 GNB lactose fermenting -Continue ceftriaxone started 11/02, [...] Q30 Min PRN Olegario Peng 11/04/2017 7:21 [facility] Nick Aguillon RN - 0 11/04/2017 1:06 AM PSTDialysis treatment started and Arterial pressures running in the -400s , trouble shooting ineffective, arterial and venous lines switched, pressures now -50s. Shama tment is running appropriately at this moment, will continue monitoring. Nick Guallpa Gopi Mckenna DO - 11/03/2017 11:20 AM PST [facility] [address] [place] [address] PROGRESS NOTE Pt. Name/Age/: Ara Tilley 72 y.o. 1945 Med. Record Number: [id number] Date of admission: 11/01/2017 NEPHROLOGY HPI - [...] 4. Encourage ambulation to minimize atelectasis. [facility] Olegario Keen MD - 11/03/2017 7:07 AM PST [facility] [place] HOSPITALIST PROGRESS NOTE Patient: Ara Tilley : 1945: Age: 72 y.o. MedRec: [id number] Admission date: 11/01/2017 Hospital day # : [...] IVPB 2 g Intravenous Daily An kayli Pneg MD 100 mL/hr at 11/02/17 1623 2 [...] PH UA 6.0 5.0 - 8.0 Specific [place] 1.010 1.001 - 1.030 PROTEIN UA 100 [...] Date/Time Influenza A and B RNA, NAAT [[id number]] (Normal) Collected: 11/02/17 1050 Order Status: Completed Lab Status: Final result Updated: 11/02/17 1125 Specimen: Respiratory from Nares Influenza A PCR Negative Influenza B PCR Negative Culture, Urine [[id number]] Collected: 11/02/17 0740 Order Status: Sent Lab Status: In process Updated: 11/02/17 0758 Specimen: Urine Culture, Blood [[id number]] (Normal) Collected: 11/02/17 0024 Order Status: Completed Lab Status: Preliminary result Updated: 11/02/17 1241 Specimen: Blood from Peripheral Blood Culture No growth: Monitored continually by instrument for 5 days Culture, Blood [[id number]] (Abnormal) Collected: 11/02/17 0019 Order Status: Completed Lab Status: Preliminary result Updated: 11/02/17 1515 Specimen: Blood from Peripheral Blood Culture Positive Blood Culture (AA) Gram Stain Result Gram positive cocci in chains Comment: One of four Blood Culture bottles POSITIVE. Critical Result called to and read b ack by Kristen Irving on 11/02/2017 at 15:14 by Edison Short. Narrative: Culture, MRSA [[id number]] Collected: 11/01/17 2146 Order Status: Sent Lab [...] Oral BID PRN Olegario Peng 11/03/2017 7:08 [facility] olph, Ta Restrepo [facility] - [...] directions X Pharmacy list names: [facility] DISPLAY FABRICATION SUPERVISOR (Prescription Monitoring Program) X [employer] insurance [...] Prior to Admission Sig: Patient taking differently [employer]PERVISOR [employer]ING as: Atorvastatin 20mg 1 tab by mouth nightly 1 tab by mouth every morning Calcium- vitamin d 600-400mg 1 tab by mouth twice daily 1 tab by mouth every morning Duloxetine 30mg DR 1 capsule by mouth daily Patient has not started this medication [employer], cortés s not filled at pharmacy [id number] 200mg by mouth twice daily 200mg by mouth every morning labetalol 200mg 1 tab by mouth twice daily Patient has not started this medication [employer], has not filled at pharmacy Best possible [employer] medication list after pharmacy review: Prior to [...] performed and electronically signed by Puja Whitman, Trampoline Team Coach 2017 15:31 Electronically signed by: Ta Ronquillo RPH 11/02/2017 15:40 Olegario Keen MD - 11/02/2017 7:21 AM PST [facility] [place] HOSPITALIST PROGRESS NOTE Patient: Ara Nicolas Andres : 1945: Age: 72 y.o. MedRec: [id number] Admission date: 11/01/2017 Hospital day # : [...] Procedure Component Value Units Date/Time Culture, Blood [[id number]] Collected: 11/02/17 0024 Order Status: Sent Lab Status: In process Updated: 11/02/1732 Specimen: Blood from Peripheral Blood Culture, Blood [[id number]] Collected: 11/02/17 0019 Order Status: Sent Lab Status: In process Updated: 11/02/1732 Specimen: Blood from Peripheral Blood Culture, MRSA [[id number]] Collected: 11/01/172145 Order Status: Sent Lab Status: [...] 0.9% Intravenous Continuous Olegario Peng 11/02/2017 7:38 [facility] documented in this e ncounter H&P Notes Rupal Laguna MD - 11/01/2017 10:36 PM PST HISTORY AND PHYSICAL EXAMINATION Pt. Name/Age/: Ara Tilley 72 y.o. 1945 Date of admission: 11/01/2017 Admitting Physician: Rupal Laguna Primary Care Physician: Nan Bruno History taken from: patient and past medical records Chief Complaint/Reason for Visit: Sent by [facility] for hypoglycemia, hypothyroidism, and CKD History of Present Illness: 72yoF w/ hx of IDDM, HTN, CKD IV/V, CAD, who initially presented to [facility] after iwona garrett found down in [...] signed by: Rupal Laguna MD, 11/01/2017 22:36 [facility] Lab data: Recent Results (from the [...] Leo MD - 11/06/2017 4:06 PM PST [facility] ADMIT HISTORY AND PHYSICAL Primary Care Physician: Francisca Womack PATIENT NAME: Ara Tilley : 1945 TODAY'S DATE: 11/06/2017 CHIEF COMPLAINT: ESRD REASON FOR CONSULTATION: ESRD History OF PRESENT ILLNESS: I was asked by Dr. Brigida Moseley to consult on this patient for the general surgery team. Aar Tilley is a 72 y.o. female with history of diabetes mellitus, hypertension, EK G 12/16, and CAD who was admitted on 11/01 after being transferred from [facility] with seps is likely secondary to [...] on 11/02/2017 10/06/17 Edison Keys MD [facility] by Does not apply route. Use [...] mouth Daily. 10/07/17 Yes Edison Keys MD [facility]. Throat Products (OASIS MOISTURIZING MOUTHWASH MT) Take [...] Signed by: Nora Leo MD, 11/06/2017 16:07 [facility] opi Muñoz, DO - 11/02/2017 3:45 PM PST [facility] [address] [place] [address] NEPHROLOGY CONSULT Pt. Name/Age/: Ara Tilley 72 y.o. 1945 Med. Record Number: [id number] Date of admission: 11/01/2017 Reason for consultation: [...] daily. ETOH: denies. Single; lives independently, in [place]. FAMILY HISTORY: Father: in his 70's of [...] hemodialysis, albeit at a younger age. [facility] CC: Jam Hurt D.O., [facility] Olegario Peng M.D. ose Monter[place]so [...] Needs: (based on 70 kg) Kcal needs: 6195-0322 Kcals/day Protein needs:75-90 grams of protein/day Fluid goal:3643-9973 cc fluid per day, restriction for HD [...] in 1 days. Available as needed, ext [phone] Assessment: Diet Order: For your reference, current, [...] Notes Goals of Care - Dalia Salcido, [employer] - 11/10/2017 10:17 AM PSTGOALS OF CARE [...] He is due to be released from retirement next year and she hopes to see him after that. Fears/Worries: What are your biggest fears and worries about the future with your health? Burdening others She noted that pain is not something that bothers her. Her baseline pain is 6-7/10. Another concern is not being able to be as spontaneous now that she is on dialysis. She values fara barreto able to mushroom picker and go to the [facility] in [place], and the idea of planning a t rip and planning her dialysis there, etc I s going to be an adjustment. Function: None of the above Tradeoffs: If you become sicker, how much are you willing to go through for the possibility of gaining more time? Be in the ICU, Be uncomfortable, Have a feeding tube and Live in a mcc Family: How much do your proxy and family know about your priorities and wishes? Some discussion but incomplete Goals and Plan of Medical Care: Some limitations on diagnostic treatment of condition- balanced with quality of life JENNIFER Fontanez 11/10/17 10:17 lan of Care - Deepa Pham, SEISMIC PROSPECTING OBSERVER HELPER - 11/09/2017 4:14 PM PSTProblem: Patient Care [...] this shift lan of Care - Mercedes ubnch, Pita Escobedo RN - 11/09/2017 2:00 PM PSTDischarge Planning: Order for home health services obtained. TEJAL contacted [facility] in [facility] ([phone]) regarding new referral. Patient is followed by MARLYN Womack at [facility], and [facility] is not able to admit to services without an MD to [facility]. TEJAL then contacted [facility] who states that the Dr. Hurt will follow the patient, how ever he is out of the office until 11/22, thus will not be able to sign orders until that dutch e. TEJAL called [facility] and informed of MD to follow and faxed referral with c onfirmation of receipt placed in ghost chart. TEJAL then reached out to the Public Health Nurse at [facility] Emili Cueva [phone] who states that she is able to see the patient in her home setting and monitor things such a s blood pressure, medication management, and assist the patient with resources for food, tra nsportation, etc. Emili informed this CM that she can [facility] a [facility] 11[facility]10[facility] @ 1130 and will also assist the patient with transportation to the patient's [facility] dialysis appointment tomorrow at 1300. TEJAL faxed medical records to Emili at [facility] ( f:[phone]) with confirmation of receipt placed in ghost [...] [facility] Emili denies any additional information needed from this CM at this time.Electro nically signed by Pita Alexander, RN at 11/10/2017 11:27 AM [facility] - Tamara Moreira RRT - 11/09/2017 [...] room air. No prn treatments taken. lan [facility] - Cathi Rodriguez RN - 11/09/2017 1:58 [...] pain to her RU chest; medicated w/1 [place] (5's) PRN; appeared to be effective as [...] chest from incision, relief noted with 1 [place]. Trace edema in BLE. Independen t in [...] 217-232 mg/dL. Pain managed with administration of Whiteville 5-325 mg once after surgery. lan of [...] Planning: CM received call from Jossie at [facility] in [place], [place] inquiring about patient d ischarge status. Jossie also inquiring about the patient's hemodialysis and whether or not it has been set up at the facility in [place]. CM contacted [facility] 5 [phone] and confirmed that the patient has been [...] CM "I'm not shayna g to a mcc". CM discussed follow up with dialysis as she is new to HD. CM informe d patient that this CM has been in contact with dialysis in [place]. Patient states "Ther e is one on the res.". CM confirmed that there is a [facility] located on the [facility] and that this CM has been in contact with them. Patient then stated to this CM "if you already knew they were there then why did you ask me about it?". At that point CM was dismi ssed from room by patient. CM returned call to [facility] at [facility] and informed that the patient has adamantly refus ed SNF at discharge. Disposition: Home with outpatient hemodialysis follow up. Electronically signed by: Pita Alexander RN 11/08/2017 15:41 p Note - John Leo MD - 11/08/2017 1:36 PM PSTOPERATIVE NOTE Pt. Name/Age/: Ara Tilley 72 y.o. 1945 [facility]. Record Number: [id number] Date of admission: 11/01/2017 Date of Operation/Procedure: 11/08/2017 Pre-Op Diagnosis Codes: end stage renal disease POSTOP DIAGNOSIS: Post-Op Diagnosis Codes: * End stage renal disease on dialysis (HCC) [N18.6, Z99.2] Surgeon: Nora Leo MD Grain Operator(s): none Anesthesia Provider(s): Anesthesiologist: Vinnie Last MD [...] by: Nora Leo MD, 11/08/2017 13:36 [facility] rief Op Note - Nora Leo MD - 11/08/2017 1:34 PM PSTFormatting of this note might be different from the orig inal. Brief Operative Note Ara Maria Isabel Andres 72 y.o. female 1945 [id number] Proc. Date 11/08/2017 Preop Dx end stage renal disease Postop Dx * End stage renal disease on dialysis (HCC) [N18.6, Z99.2] Procedure Tunneled Hemodialysis Catheter Placement Anesthesia General Surgeon Nora Leo MD - Primary Transition Lead EBL 10cc Findings 28cm tunneled HD catheter placed into right internal jugular vein Complications none Specimens * No specimens in log * Drains Electronically signed by: Nora Leo MD 11/08/2017 13:34 [facility]ora Leo MD at 2017 1:35 PM PSTPlan of Care - Francisca Matos RN - 11/08/2017 6:05 AM PSTProblem: Patie nt Care Overview (Adult) Goal: Care Team Goals & Evaluation PROBLEM-RELATED GOALS: 1. Nikik will maintain blood sugar greater than 60 [...] hour urine study. Denied terry n. lan [facility] - Vero toure, Wilbur Alvares RN - [...] assistance and remains free of falls. lan [facility] - Tamara Moreira RRT - 11/07/2017 3:14 [...] remains free of falls. eICU Note - Vinnei Klein RN - 11/06/2017 1:33 PM PSTDialysis [...] of Care - Christy kokirajmauro Liam F, SEISMIC PROSPECTING OBSERVER HELPER - 11/05/2017 10:05 AM PSTProblem: Patient Care [...] and appeared to be crying. lan of [facility] - Collette Dunn - 11/05/2017 7:25 AM PSTFaxed referral to [facility]. Electronically signed by: Collette Shanks 11/05/2017 7:25 Received a call from Anayeli @ [facility] stating she will be on stand by IF Nikki needs to go her way. HD will need to be set up prior. This CM let Markovivi know that Nikki will probably discharge home. Electronically signed by: Collette Shanks 11/05/2017 12:45 lan of [facility] - Gregg Castro RN - 11/05/2017 [...] RN lan of Care - Bry Lucero, SEISMIC PROSPECTING OBSERVER HELPER - 11/04/2017 9:48 PM PSTProblem: Patient Care [...] needed. lan of Care - Tamara Lawson SEISMIC PROSPECTING OBSERVER HELPER - 11/04/2017 5:59 PM PSTProblem: Patient Care [...] a safe manner Outcome: Unchanged Linh from [facility] called to check up on patient so some verbal clinicals given h er, letting her know that patient moved down to floor care status this AM, to room [address] and [address] her Collette, DP's number to call if any more updates are needed. She appreciated the update d clinicals. Electronically signed by: Sharon Rosado RN 11/04/2017 14:38 lan of [facility] - Gregg Guallpa RN - 11/04/2017 [...] needs AV shunt. Spiritual Evaluation: Traditional and Orthodoxy Spiritual Intervention: Active listening, pastoral presence. Spiritual Outcomes: Patient was grateful for the Drafter Structural's visit. Spiritual Goals / Follow-up: Will see the patient as requested. If there are any other spiritual care issues that arise, please contact sales strategy manager. lan of Care - Venkatesh Rosario, SEISMIC PROSPECTING OBSERVER HELPER - 11/03/2017 11:49 AM PSTProblem: Patient Care [...] of health. VSS. HR SR/RBBB c PACs. Whiteville controls chronic back pain well. Lungs very [...] family. Patient lives with her spouse in [place] and per one of the sister's, she [...] and so has only met with the [facility] RN meera Mao once and they feel she will need to be followed up closer since it is anticipat ed that she will be set up for new ongoing dialysis from here on out. She is planning on using [facility] in [place] for her dialysis needs once discharged. This CM called and spoke with Linh at [facility], and she confirmed that patient ch anged her PA to [facility] recently (called patient access and had Leatha change it in EPIC). She had just recently seen her PCP, Nan Bruno on Oct 07. Linh also stated that she gets her 11 meds there as well. Per Linh, the [facility] Rep went out to the home to [...] will be needing [facility] [place]. Electronically signed by: Sharon Rosado RN 11/02/2017 [...] | | | than 15 ml/min ([facility]) | | | | | | Type 2 DM with CKD | | | | | | stage 5 and | | | | | | hypertension ([facility]) | | | | | | Acute [...] | PERMACATH | | PST | ([facility]) | | + +--------+ + + + [...] [address] | [place] | [phone] | | [facility] | | [address] | | | - LABORATORY | | [...] + | [address] | [address] | [place] | [phone] | | [facility] | | [address] | | | - LABORATORY | | [...] [address] | [place] | [phone] | | [facility] | | [address] | | | - LABORATORY | | [...] 2.99 (H) | 0.60 - 1.30 | [facility] | | | | | mg/dL | [facility] | | | | | | MEDICAL | | | | | | CENTER - | | | | | | LABORATORY | | + + + + + + | eGFR if not | 15 (L)Comment: | >=60 | [place] | | | | GLOMERULAR FILTRATION | mL/min/1.73m2 | [facility] | | | [place] | RATE,ESTIMATED | | MEDICAL | | | | mL/min/1.90w4Jmki than | | CENTER - | | [...] | [address] [facility] | [address] | [place] | [phone] | | [facility] | | [address] | | | - LABORATORY | | [...] [address] | [place] | [phone] | | [facility] | | [address] | | | - LABORATORY | | [...] + | [facility] | [address] | [place] | [phone] | | [facility] | | [address] | | | - LABORATORY | | [...] appended report. These | | [facility] | | | | results have [...] [address] | [place] | [phone] | | [facility] | | [address] | | | - LABORATORY | | [...] | | Urine | | mg/24hrs | [facility] | | | (mg/24hr) | | [...] | [address] | [address] | [place] | [phone] | | [facility] | | [address] | | | - LABORATORY | | [...] [address] | [place] | [phone] | | [facility] | | [address] | | | - LABORATORY | | [...] + | [facility] | [address] | [place] | [phone] | | [facility] | | [address] | | | - LABORATORY | | [...] mL/min/1.73m2 | [facility] | | | [place] | RATE,ESTIMATED | | MEDICAL | | | | mL/min/1.38w7Udoq than | | CENTER - | | [...] + | [address] | [address] | [place] | [phone] | | [facility] | | [address] | | | - LABORATORY | | [...] [address] | [place] | [phone] | | [facility] | | [address] | | | - LABORATORY | | [...] + | [facility] | [address] | [place] | [phone] | | [facility] | | [address] | | | - LABORATORY | | [...] + | [facility] | [address] | [place] | [phone] | | [facility] | | [address] | | | - LABORATORY | | [...] ST. | [address] | [place], [place] | [phone] | | [facility] | | [address] | | | - LABORATORY | | [...] [address] | [place] | [phone] | | [facility] | | [address] | | | - LABORATORY | | [...] + | [facility] | [address] | [place] | [phone] | | [facility] | | [address] | | | - LABORATORY | | [...] ST. | [address] | [place] | [phone] | | [facility] | | [address] | | | - LABORATORY | | [...] + | [facility] | [address] | [place] | [phone] | | [facility] | | [address] | | | - LABORATORY | | [...] 2.24 (H) | 0.60 - 1.30 | [facility] | | | | | mg/dL | [facility] | | | | | | MEDICAL | | | | | | CENTER - | | | | | | LABORATORY | | + + + + + + | eGFR if not | 22 (L)Comment: | >=60 | [place] | | | | GLOMERULAR FILTRATION | mL/min/1.73m2 | [facility] | | | [place] | RATE,ESTIMATED | | MEDICAL | | | | mL/min/1.43e0Wkzj than | | CENTER - | | [...] | [address] | [address] | [place] | [phone] | | [facility] | | [address] | | | - LABORATORY | | [...] [address] | [place] | [phone] | | [facility] | | [address] | | | - LABORATORY | | [...] [address] | [place] | [phone] | | [facility] | | [address] | | | - LABORATORY | | [...] + | [facility] | [address] | [place] | [phone] | | [facility] | | [address] | | | - LABORATORY | | [...] | | [facility] | | | [facility] | | | - LABORATORY | + + + + + + + + | Performing | Address | City/State/Zipcode | Phone Number | | Organization | | | | + + + + + | [facility] | [address] | [place] | [phone] | | [facility] | | [address] | | | - LABORATORY | | [...] ST. | [address] | [place] | [phone] | | [facility] | | [address] | | | - LABORATORY | | [...] [address] | [place] | [phone] | | [facility] | | [address] | | | - LABORATORY | | [...] | | Cells | | M/uL | [facility] | | | | | | MEDICAL | | | | | | CENTER - | | | | | | LABORATORY | | + + + + + + | Hemoglobin | 9.0 (L) | 11.5 - 16.0 | [facility] | | | | | g/dL | [facility] | | [...] [address] | [place] | [phone] | | [facility] | | [address] | | | - LABORATORY | | [...] 108 | 70 - 109 mg/dL | [facility] | | | | | | [facility] | | | | | | MEDICAL | | | | | | CENTER - | | | | | | LABORATORY | | + + + + + + | BUN | 30 (H) | 7 - 18 mg/dL | [facility] | | | | | | [facility] | | | | | | MEDICAL | | | | | | CENTER - | | | | | | LABORATORY | | + + + + + + | Creatinine | 2.40 (H) | 0.60 - 1.30 | [facility] | | | | | mg/dL | [facility] | | | | | | MEDICAL | | | | | | CENTER - | | | | | | LABORATORY | | + + + + + + | eGFR if not | 20 (L)Comment: | >=60 | [facility] | | | | GLOMERULAR FILTRATION | mL/min/1.73m2 | [facility] | | | [place] | RATE,ESTIMATED | | MEDICAL | | | | mL/min/1.74s5Kmmz than | | CENTER - | | [...] [address] | [place] | [phone] | | [facility] | | [address] | | | - LABORATORY | | [...] [address] | [place] | [phone] | | [facility] | | [address] | | | - LABORATORY | | [...] + | [facility] | [address] | [place] | [phone] | | [facility] | | [address] | | | - LABORATORY | | [...] + | [facility] [facility] | [address] | [place], [place] | [phone] | | [facility] | | [address] | | | - LABORATORY | | [...] MARIA ISABEL | | | Patient Number [id number] Date of Study | | | 11/05/2017 Visit Number [id number] | | | Referring Physician AUDI ANDRADE Number Date of | | | 1945 Sales And Customer Relations Rep Martell En | | | Age 72 year(s) Interpreting | | | GENIE WARREN | | | Co Teacher CHAYO | | | SHERRIE RADFORD, | | | | | | Gender Female Nurse | | | Stress Residential Solar Consultant | | | Procedure Type of Study [...] valve cusps without reducedexcursion.Tricuspid | | | GahxuHvik-cu-xplinudy tricuspid regurgitation suggestive of a mildly | [...] | Mitral Valve Peak E-Wave: 1.77 m/s MMAI | | | PISA: 0.33 cm^2 Peak [...] | | | EF | | | Plmygolsg35% Left Ventricle Diastolic Dimension: 4.77 cm Septum [...] |excursion. | | |Tricuspid Valve | | |Xtwo-nz-zvxfqciu tricuspid regurgitation suggestive of a mildly elevated [...] Volume: 60.67 ml | | | EF Eqkbnzben57% | | | | | | Left [...] Results In - 11/05/2017 4:27 PM [facility] Transthoracic Echocardiography Report | | (TTE) Demographics Patient Name [facility] Room Number 307 | | MARIA ISABEL Patient Number [id number] Date of Study 11/05/2017 Visit Number | | [id number] Referring Physician AUDI ANDRADE | | Number Date of 1945 Sales And Customer Relations Rep Jasbir En Age | | 72 year(s) Interpreting GENIE WARREN | | Co Teacher CHAYO | | SHERRIE RADFORD MD Gender [...] aortic valve cusps | | without reducedexcursion.Tricuspid FqxkqXess-yd-essbryxw tricuspid regurgitation | | suggestive of a [...] LA Volume: 60.67 ml | | EF Bthvkzsfs47% Left Ventricle Diastolic Dimension: 4.77 | | [...] reduced | |excursion. | |Tricuspid Valve | |Fyrd-ic-xwurgeow tricuspid regurgitation suggestive of a mildly elevated [...] LA Volume: 60.67 ml | | EF Xhwtmvyht82% | | | | Left Ventricle | [...] [address] | [place] | [phone] | | [facility] | | [address] | | | - LABORATORY | | [...] + | [facility] | [address] | [place] | [phone] | | [facility] | | [address] | | | - LABORATORY | | [...] [address] | [place] | [phone] | | [facility] | | [address] | | | - LABORATORY | | [...] [address] | [place] | [phone] | | [facility] | | [address] | | | - LABORATORY | | [...] + | [facility] | [address] | [place] | [phone] | | [facility] | | [address] | | | - LABORATORY | | [...] | | | | | mmol/L | [facility] | | | [...] mL/min/1.73m2 | [facility] | | | [place] | RATE,ESTIMATED | | MEDICAL | | | | mL/min/1.32o9Wsdf than | | CENTER - | | [...] [address] | [place] | [phone] | | [facility] | | [address] | | | - LABORATORY | | [...] ST. | [address] | [place], [place] | [phone] | | [facility] | | [address] | | | - LABORATORY | | [...] [address] | [place] | [phone] | | [facility] | | [address] | | | - LABORATORY | | [...] [address] | [place] | [phone] | | [facility] | | [address] | | | - LABORATORY | | [...] + | [facility] | [address] | [place] | [phone] | | [facility] | | [address] | | | - LABORATORY | | [...] + | [facility] | [address] | [place] | [phone] | | [facility] | | [address] | | | - LABORATORY | | [...] [address] | [place] | [phone] | | [facility] | | [address] | | | - LABORATORY | | [...] [address] | [place] | [phone] | | [facility] | | [address] | | | - LABORATORY | | [...] | [address] [facility] | [address] | [place] | [phone] | | [facility] | | [address] | | | - LABORATORY | | [...] [address] | [place] | [phone] | | [facility] | | [address] | | | - LABORATORY | | [...] | mL/min/1.73m2 | [facility] | | | [place] | RATE,ESTIMATED | | MEDICAL | | | | mL/min/1.64w9Csid than | | CENTER - | | [...] [address] | [place] | [phone] | | [facility] | | [address] | | | - LABORATORY | | [...] + | [facility] | [address] | [place] | [phone] | | [facility] | | [address] | | | - LABORATORY | | [...] | | POC | | | [facility] | | | | [...] ST. | [address] | [place], [place] | [phone] | | [facility] | | [address] | | | - LABORATORY | | [...] [address] | [place] | [phone] | | [facility] | | [address] | | | - LABORATORY | | [...] [address] | [place] | [phone] | | [facility] | | [address] | | | - LABORATORY | | [...] [address] | [place] | [phone] | | [facility] | | [address] | | | - LABORATORY | | [...] + | [facility] | [address] | [place] | [phone] | | [facility] | | [address] | | | - LABORATORY | | [...] [address] | [place] | [phone] | | [facility] | | [address] | | | - LABORATORY | | [...] [address] | [place] | [phone] | | [facility] | | [address] | | | - LABORATORY | | [...] [address] | [place] | [phone] | | [facility] | | [address] | | | - LABORATORY | | [...] + | [facility] | [address] | [place] | [phone] | | [facility] | | [address] | | | - LABORATORY | | [...] | [address] [facility] | [address] | [place] | [phone] | | [facility] | | [address] | | | - LABORATORY | | [...] + | [facility] [facility] | [address] | [place], [place] | [phone] | | [facility] | | [address] | | | - LABORATORY | | [...] + | Performed at: 01 - [facility] [place] [address], | REFERENCE LAB | | [place], [place] [id number] Tree Tapping Laborer: Ernie Lee MD, Phone: | LIZ - TETE | | [phone] | | + + + + + + + + | Performing | Address | City/State/Zipcode | Phone Number | | Organization | | | | + + + + + | REFERENCE LAB | [address] | [place], [place] | [phone] | | [facility] | Drive [facility] | [address] | | + + + + + [...] [address] | [place] | [phone] | | [facility] | | [address] | | | - LABORATORY | | [...] [address] | [place] | [phone] | | [facility] | | [address] | | | - LABORATORY | | [...] [address] | [place] | [phone] | | [facility] | | [address] | | | - LABORATORY | | [...] test | | | | | | ([id number]). | | | | + + + + + + + + | Specimen | + + | Blood | + + + + + | Narrative | Performed At | + + + | Performed at: 01 - [facility] [place] [address], | REFERENCE LAB | | [place], [place] [id number] Tree Tapping Laborer: Ernie Lee MD, Phone: | [facility] EP[facility]IN | | [phone] | | + + + + + + + + | Performing | Address | City/State/Zipcode | Phone Number | | Organization | | | | + + + + + | REFERENCE LAB | [address] | [place], [place] | [phone] | | [facility] | Drive [facility] | [address] | | + + + + + [...] | mL/min/1.73m2 | [facility] | | | [place] | RATE,ESTIMATED | | MEDICAL | | | | mL/min/1.69c3Epgh than | | CENTER - | | [...] | | ine Ratio | | | [facility] [...] [address] | [place] | [phone] | | [facility] | | [address] | | | - LABORATORY | | [...] + | [facility] | [address] | [place] | [phone] | | [facility] | | [address] | | | - LABORATORY | | [...] [address] | [place] | [phone] | | [facility] | | [address] | | | - LABORATORY | | [...] [address] | [place] | [phone] | | [facility] | | [address] | | | - LABORATORY | | [...] [address] | [place] | [phone] | | [facility] | | [address] | | | - LABORATORY | | [...] abnormality identified. Dictated and Signed by: Itz Masden MD Electronically | | signed: 11/02/2017 8:27 [...] [address] | [place] | [phone] | | [facility] | | [address] | | | - LABORATORY | | [...] [address] | [place] | [phone] | | [facility] | | [address] | | | - LABORATORY | | [...] [address] | [place] | [phone] | | [facility] | | [address] | | | - LABORATORY | | [...] [address] | [place] | [phone] | | [facility] | | [address] | | | - [...] ST. | [address] | [place], [place] | [phone] | | [facility] | | [address] | | | - LABORATORY | | [...] [address] | [place] | [phone] | | [facility] | | [address] | | | - LABORATORY | | [...] [address] | [place] | [phone] | | [facility] | | [address] | | | - LABORATORY | | [...] [address] | [place] | [phone] | | [facility] | | [address] | | | - LABORATORY | | [...] | [address] | [address] | [place] | [phone] | | [facility] | | [address] | | | - LABORATORY | | [...] [address] | [place] | [phone] | | [facility] | | [address] | | | - LABORATORY | | [...] [address] | [place] | [phone] | | [facility] | | [address] | | | - LABORATORY | | [...] + | [facility] | [address] | [place] | [phone] | | [facility] | | [address] | | | - LABORATORY | | [...] [address] | [place] | [phone] | | [facility] | | [address] | | | - LABORATORY | | [...] [address] | [place] | [phone] | | [facility] | | [address] | | | - LABORATORY | | [...] + | [facility] | [address] | [place] | [phone] | | [facility] | | [address] | | | - LABORATORY | | [...] mL/min/1.73m2 | [facility] | | | [place] | RATE,ESTIMATED | | MEDICAL | | | | mL/min/1.01c0Vulq than | | CENTER - | | [...] ST. | [address] | [place], [place] | [phone] | | [facility] | | [address] | | | - LABORATORY | | [...] [address] | [place] | [phone] | | [facility] | | [address] | | | - LABORATORY | | [...] - 1.030 | [facility] | | | [place], | | | [facility] | | [...] + | [facility] | [address] | [place] | [phone] | | [facility] | | [address] | | | - LABORATORY | | [...] | | | | [employer] | | | | | [...] + | [facility] | [address] | [place] | [phone] | | [facility] | | [address] | | | - LABORATORY | | [...] [address] | [place] | [phone] | | [facility] | | [address] | | | - LABORATORY | | [...] [address] | [place] | [phone] | | [facility] | | [address] | | | - LABORATORY | | [...] + | [facility] | [address] | [place] | [phone] | | [facility] | | [address] | | | - LABORATORY | | [...] [address] | [place] | [phone] | | [facility] | | [address] | | | - LABORATORY | | [...] [address] | [place] | [phone] | | [facility] | | [address] | | | - LABORATORY | | [...] + | [facility] | [address] | [place] | [phone] | | [facility] | | [address] | | | - LABORATORY | | [...] | third generation TSH | uIU/mL | [facility] | | | | test. | [...] [address] | [place] | [phone] | | [facility] | | [address] | | | - LABORATORY | | [...] | | | | [employer] | | | | | [...] [address] | [place] | [phone] | | [facility] | | [address] | | | - LABORATORY | | [...] [address] | [place] | [phone] | | [facility] | | [address] | | | - LABORATORY | | [...] [address] | [place] | [phone] | | [facility] | | [address] | | | - LABORATORY | | [...] not | 12 (L)Comment: | >=60 | [facility] | | | | GLOMERULAR FILTRATION | mL/min/1.73m2 | Marianela NERISSA | | | ARGENTINE | RATE,ESTIMATED | | MEDICAL | | | | mL/min/1.37q7Wlup than | | CENTER - | | [...] + | [facility] | [address] | [place] | [phone] | | [facility] | | [address] | | | - LABORATORY | | [...] ST. | [address] | [place], [place] | [phone] | | [facility] | | [address] | | | - LABORATORY | | [...] [address] | [place] | [phone] | | [facility] | | [address] | | | - LABORATORY | | [...] [address] | [place] | [phone] | | [facility] | | [address] | | | - LABORATORY | | [...] for comparison only - no result from [facility]. | [facility] | + + + [...] | | | | | | use [place] 10/325 if ordered. If | | | [...] | | | | | | use [place] 10/325 if ordered. If | | | [...] | | | | | | | 3638-0395 Use NIGHT DOSE for | | | | | | | doses scheduled: HS, 3AM, | | | | | | | Nighttime 7940-9945, | | | | | | + [...] scheduled: AC, | | | NPO, Daytime 5889-7299 Use NIGHT | | | DOSE for doses scheduled: | | | HS, 3AM, Nighttime 6207-7405, | | + +---+ | | | [...] | | | DAY, First dose on [facility] 11/04/17 | | AM PST | [...] | | | DAILY, First dose on [facility] 11/04/17 | | AM PST | [...]
--- OUTSIDE RECORDS SUMMARY | ~2020-03-23 | XMS | Encounter Summary ---
Demographics + + + | Address | [address] | | | [place] [address] | + + + | Home Phone [...] Author | [facility] | | | and [place] | + + + | Organization | [facility] | | | and [place] | + + + | Address | Unknown | + + + | Phone | Unavailable | + + + Support + + + + + | Name | Relationship | Address | Phone | + + + + + | India Tilley | [place] | [phone] | | | | | [place], [place] | | | | | [address] | | + + + + + [...] Team Providers + +------+ + | Care Library Media Assistant Name | Role | Phone | [...] | | | [place] | [facility] | | | | | [address] | [place] [address] | | | | | [phone] | [phone] | | | | | | | [...]
--- OUTSIDE RECORDS SUMMARY | ~2020-03-23 | XMS | Encounter Summary ---
Demographics + + + | Address | [address] | | | [place] [address] | + + + | Home Phone [...] | [facility] | | | and [place] | + + + | Organization | [facility] | | | and [place] | + + + | Address | Unknown | + + + | Phone | Unavailable | + + + Support + + + + + | Name | Relationship | Address | Phone | + + + + + | India Tilley | [place] | [address] | | | | | [place], [place] | | | | | [address] | | + + + + + [...] Team Providers + +------+ + | Care Boring Machine Operator Production Name | Role | Phone | [...] [address] | | | | | [place], [place] | [place] [address] | | | | | [address] | [phone] | | | | | [phone] | | | +--------+ + + + [...]
--- OUTSIDE RECORDS SUMMARY | ~2020-03-23 | XMS | Encounter Summary ---
Demographics + + + | Address | [address] | | | [place] [address] | + + + | Home Phone [...] + | Author | [facility] | | | and [place] | + + + | Organization | [facility] | | | and [place] | + + + | Address | Unknown | + + + | Phone | Unavailable | + + + Support + + + + + | Name | Relationship | Address | Phone | + + + + + | India Tilley | [place] | [address] | | | | | [place], [place] | | | | | [address] | | + + + + + [...] Providers + +------+ + | Care Meat Scrubber Name | Role | Phone | + [...] | [address] | [place] [address] | | | | | [place] [address] | | | | | | [phone] | | | +--------+ + + + [...] for comparison only - no result from [facility]. | [facility] | + + + + +---------+ + + | Performing | Address | City/State/Zipcode | Phone Number | | Organization | | | | + +---------+ + + | [facility] | | | | + +---------+ + + documented in this encounter Visit Diagnoses Not on filedocumented in this encounter"
--- OUTSIDE RECORDS SUMMARY | ~2020-03-23 | XMS | Encounter Summary ---
Demographics + + + | Address | [address] | | | [place] [address] | + + + | Home Phone [...] [facility] | | | and [place] | + + + | Organization | [facility] | | | and [place] | + + + | Address | Unknown | + + + | Phone | Unavailable | + + + Support + + + + + | Name | Relationship | Address | Phone | + + + + + | India Tilley | [place] | [address] | | | | | [place], [place] | | | | | [address] | | + + + + + [...] Providers + +------+ + | Care Director Supply Name | Role | Phone | + [...] | | | | renal | [place] [address] | [address] | | | | | disease | | [address] | | | | | (HCC) | [address] | [address] | | | | | Procedures | WAY | [place], | | | | | DC OFFICE | [place], | [place] [address] | | | | | OUTPATIENT | [place] [address] | Phone: | | | | | VISIT 25 | Phone: | [phone] | | | | | MINUTES | [phone] | Fax: | | | | | | Fax: | [phone] | | | | | | [phone] | | +--------+--------+ + + + + [...] | [place], JA | [place] [address] | | | | | [address] | [phone] | | | | | [phone] | | | +--------+ + + + [...] to HTN and diabetic glomerulosclerosis at the [facility]. She also [...] has been directly in touch with the [facility] at the [facility], and she states that "she has not. " She will not provide a direct answer why she does not confer directly with [facility] for better resources? She de nies acute [...] candidate to get in touch with a [place] financial service representative at the [facility] for some immediate madiha rupertce. 2. I [...] here in the [facility]. : [place], [place]. Santos Stephenson MD, [facility] documented in thi s encounter Plan of Treatment Not on filedocumented as of this encounter Visit Diagnoses + + | Diagnosis | + + | End stage renal disease (HCC) - Primary End stage renal disease | + + documented in this encounter
--- OUTSIDE RECORDS SUMMARY | ~2020-03-23 | XMS | Encounter Summary ---
Demographics + + + | Address | [address] | | | [place] [address] | + + + | Home Phone [...] + | Author | [facility] | | | and [place] | + + + | Organization | [facility] | | | and [place] | + + + | Address | Unknown | + + + | Phone | Unavailable | + + + Support + + + + + | Name | Relationship | Address | Phone | + + + + + | India Tilley | [place] | [phone] | | | | | [place], [place] | | | | | [address] | | + + + + + [...] Team Providers + +------+ + | Care Branch Or Department Chief Librarian Name | Role | Phone | + +------+ + PCP | Unavailable | + +------+ + Encounter Details +--------+ + + + + | Date | Type | Department | Care Team | Description | +--------+ + + + + | 10/07/ | Orders Only | [facility] | Gopi Muñzo | Chronic kidney | | 2018 | | NEPHROLOGY [address] | M, DO [address] | disease, stage V | | | | [address] | [address] [place] | ([facility]) (Primary Dx) | | | | [place] | [place] [address] | | | | | [address] | [phone] | | | | | [phone] | | | +--------+ + + + [...] PSTLabs for upcoming nephrology appointment sent to: [facility] signed by Celeste Butler RN at [...]
--- OUTSIDE RECORDS SUMMARY | ~2020-03-23 | XMS | Encounter Summary ---
Demographics + + + | Address | [address] | | | [place] [address] | + + + | Home Phone [...] Author | [facility] | | | and Kamaljitana | + + + | Organization | [facility] | | | and [place] | + + + | Address | Unknown | + + + | Phone | Unavailable | + + + Support + + + + + | Name | Relationship | Address | Phone | + + + + + | India Tilley | ECON | [address] | | | | | [place], [place] | | | | | [address] | | + + + + + [...] Providers + +------+ + | Care Store Management Trainee Name | Role | Phone [...] | | | | failure, | [place] [address] | | | | | | stage 5 | Phone: | | | | | | ([facility]) | [phone] | | | | | | Closed | Fax: | | | | | | fracture of | [phone] | | | | | | right [...] [facility]) | | | +--------+--------+ + + + + Encounter Details +--------+ + + + + | Date | Type | Department | Care Team | Description | +--------+ + + + + | 12/04/ | Hospital | [facility] | Nick Mendoza MD | Closed fracture of | | 2019 - | Encounter | MED [facility] SUR[facility] | [address] | neck of right femur, | | | | [address] | [place] | initial encounter | | 12/09/ | | [place] [id number] | [id number] | ([facility]) (Primary Dx); | | 2019 | | [phone] | | Non-compliance; End | | | | | Scott Brooks MD | stage renal disease | | | | | [address] | ([facility]); Type 2 | | | | | [place] | diabetes mellitus | | | | | [id number] | with stage 4 chronic | | | | | | kidney disease, | | | | | | with long-term | | | | | | current use of | | | | | | insulin ([facility]); | | | | | | Closed fracture of | | | | | | right hip, initial | | | | | | encounter ([facility]); | | | | | | Type 2 DM with CKD | | | | | | stage 5 and | | | | | | hypertension ([facility]); | | | | | | [...] doxercalciferol HYDROcodone-acetaminophen 5-325 mg per tablet aka: [employer] TRUE METRIX BLOOD GLUCOSE TEST Condition on Discharge: Stable Disposition: Patient was discharged to home with home health Follow-Up Plans: One month Code Status/Advance Directive (Pertinent discussions/declarations): Prior Electronically signed by: Scott Brooks, 12/20/2018 12:[address] [facility] by Scott Brooks MD at 0405/2019 12:10 PM PDTdocumented in this encounter Discharge Instructions Instructions Gopi Muñoz, DO - . Please keep your old HD appt. at [facility] for 12/12/2018. 2. Call our Office if you change your mind and wish to go to [facility] , for further R ehab. 3. Home [...] might be d ifferent from the original. [facility] [address] [place] [address] PROGRESS NOTE Pt. Name/Age/: Ara Tilley 73 y.o. 1945 Med. Record Number: [id number] Date of admission: 12/04/2018 NEPHROLOGY HPI - [...] HD tomorrow and assess for DC soon. [facility] Amol Green MD - 12/08/2018 3:29 [...] going to any Rehab. Ctr after DC. [facility] Scott Tadeo MD - 12/07/2018 8:56 [...] Muñoz DO - 12/06/2018 5:33 PM PDT [facility] [address] [facility], [place] [id number] PROGRESS NOTE Pt. Name/Age/: Ara Tilley 73 y.o. 1945 Med. Record Number: [id number] Date of admission: 12/04/2018 NEPHROLOGY HPI - [...] Lungs: Prolonged expiratory phase, with findings of Russell rales lower 1/4 both lungs. Abdomen: Soft, [...] to go home when felt ap propriate [facility] Scott Tadeo MD - 12/06/2018 8:02 [...] did not want to answer medication history mechanical test technician's questions; barely ignacioifel d her name. Answered questions with head nods or patients stating that she was not taking a medication. 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 Historical ProviderMD epoetin karthik (EPOGEN, PROCRIT) 10,000 [...] performed and electronically signed by Kerry Jordan, Yarn Sorter 12/05/2018 14:45 Reviewed by Flora Watts, PharmD [...] might be different fro m the original. [facility] HISTORY AND PHYSICAL EXAMINATION [...] right hip. Today she fell again at [facility] and this time with severe hip [...] Placement; Surgeon: Nora Leo MD; Location : [facility] MAIN OR SHUNT PLACEMENT/INSERTION Right 02/04/2018 Procedure: INSERTION SHUNT HEMODIALYSIS W/ PERMACATH; Surgeon: Heather Navarro MD; L ocation: [facility] MAIN OR VEIN SURGERY Right 01/04/2018 Procedure: Right Transposed Basilic Vein to Proximal Radial Artery; Surgeon: Santos Stephenson MD, FACS; Location: [facility] MAIN OR Allergies: Allergies Allergen Reactions [...] Muñoz, DO - 12/05/2018 5:06 PM PDT [place] [address] [place] [address] NEPHROLOGY CONSULT Pt. Name/Age/: Ara Tilley 73 y.o. 1945 Med. Record Number: [id number] Date of admission: 12/04/2018 Reason for consultation: [...] attending all her prescribed txs at the [facility], recently. Perfecto Kinga maradiaga was rounding there in October, and the front desk administrator, Aleta Day RN, advised me on mult iple occasions that she had absenteeism or truncated tx, AMA. PAST MEDICAL HISTORY: 1. ESRD 2 diabetic glomerulosclerosis with the patient beginning Inpt HD in 11/03/2017 and then was DC to the [facility] at [place], [place]. Unfortunately, she h as had intermittent [...] daily. ETOH: denies. Single; lives independently, in [place]. FAMILY HISTORY: Father: in his 70's of [...] Will follow the patient kisha h you. [facility] CC: [facility], [place], [place]. Scott Brooks MD [facility], [place] im, MD Haris - 12/04/2018 2:51 PM PDT [facility] [place] HOSPITALIST CONSULT NOTE Patient: Ara Tilley : 1945: Age: 73 y.o. MedRec: [id number] Admission date: 12/04/2018 [facility] Amira noncompliant w/ [...] Placement; Surgeon: Nora Leo MD; Location : [facility] MAIN OR SHUNT PLACEMENT/INSERTION Right 02/04/2018 Procedure: INSERTION SHUNT HEMODIALYSIS W/ PERMACATH; Surgeon: Heather Navarro MD; L ocation: [facility] MAIN OR VEIN SURGERY Right 01/04/2018 Procedure: Right Transposed Basilic Vein to Proximal Radial Artery; Surgeon: Santos Stephenson MD, FACS; Location: [facility] MAIN OR Patient Active Problem List [...] into the vein Three times a w nondalton. Historical ProviderMD epoetin karthik (EPOGEN, PROCRIT) 10,000 [...] signed by: Haris Segal MD 12/04/2018 15:14 [facility] initial inpatient hospital time greater than 70 minutes with 1/2 spent on face to face ti me for assessment and plan -Medical Decision Maker Patient. Assessment and Plan were discussed with patient -[facility] I expect this patient will be hospitalized for 2 or more days and expect the post-hospital plan to be home. -I reviewed relevant imaging, EKG and old records. [facility] ED Notes Priti Burleson RN - 12/04/2018 1:40 PM PDTStates she tripped and fell this morning and l anded onto her right hip . Complains of severe pain with movement and weight bearing. Electr onically signed by Priti Burleson RN at 12/04/2018 1:41 PM Nick Viera MD - 9 1:40 PM PDT [facility] Ara Tilley Emergency Department Encounter Note [address] [place] [address] PCP:Francisca Womack PA-C [phone] CHIEF COMPLAINT: Chief [...] Placement; Surgeon: Nora Leo MD; Location : [facility] MAIN OR SHUNT PLACEMENT/INSERTION Right 02/04/2018 Procedure: INSERTION SHUNT HEMODIALYSIS W/ PERMACATH; Surgeon: Heather Navarro MD; L ocation: [facility] MAIN OR VEIN SURGERY Right 01/04/2018 Procedure: Right Transposed Basilic Vein to Proximal Radial Artery; Surgeon: Santos Stephenson MD, FACS; Location: [facility] MAIN OR CURRENT MEDICATIONS Previous Medications [...] were reviewed along with EMS notes and [facility] record s if applicable. (See chart for [...] of neck of right femur, initial encounter ([facility]) S72.001A 820.8 Nick Mendoza MD 12/04/18 1456 [...] discharge. Rodrigue requested that CM fax the [facility] HH or jorge over to [facility]. This CM faxed the order and chart notes to [facility] [phone] and requested that they follow up with patient. Fax came through [place]. Electronically signed b y: JENNIFER Perkins 12/10/2018 [...] and forth between her sister's homes to [facility]. Pt states she usually sleeps on [...] her body asking the therapist to leave. TANK BUILDER HELPER was called in for patient privacy concerns. [...] Therapy Discharge Recommendations are: Recommended discharge disposition: [facility]ci facility Post discharge physical therapy recommendation: minimum [...] with stance phase of gait Level of Mingo: stand by assist Assistive Device: 2 wheeled walker (FWW) Distance (feet): 15 Gait Pattern Analysis: 3-point gait Safety Issues: sequencing ability decreased, step length decreased, weight-shifting ability decreased Impairments: decreased flexibility, pain, impaired balance Transfers Patient needing additional time and encouragement to mobilize Bed-Chair, Level of Mingo: stand by assist Chair-Bed, Level of Mingo: stand by assist Upz-Nqfeg-Dxq, Assistive Device: 2 wheeled walker (FWW) Sit-Stand, Level of Mingo: minimal assist (75% patient effort), set up required, ignacio bal cues required, tactile cues required Stand-Sit, Level of Mingo: minimal assist (75% patient effort), set up required, ignacio bal cues required, tactile cues required Lka-Frosn-Xgv, Assistive Device: 2 wheeled walker (FWW) Maintain Weight Bearing Status: able to maintain weight bearing status Safety Issues: sequencing ability decreased, step length decreased, weight-shifting ability decreased Impairments: decreased flexibility, pain, impaired balance Bed Mobility pt reporting continued pain in the right lower extremity it is not limiting mobility today Assistive Device: HOB elevated, bed rails Scoot/Bridge, Level of Mingo: stand by assist Supine to Sit, Level of Mingo: stand by assist Sit to Supine, Level of Mingo: not tested Safety Issues: decreased use of [...] STG Review Date 12/09/18 at 12/06/2018 1115 Nczkow-Bks-Xetixu Goal Most Recent Value STG Status new at 12/06/2018 1115 STG Mingo Level modified independent at 12/06/2018 1115 STG Assistive Device none at 12/06/2018 1115 Vhp-Tycin-Rwu Goal Most Recent Value STG Status new at 12/06/2018 1115 STG [place]ingo Level modified independent at 12/06/2018 1115 STG Assistive Device 2 wheeled walker (FWW) at 12/06/2018 1115 Gait Goal Most Recent Value STG Status new at 12/06/2018 1115 STG Mingo Level modified independent at 12/06/2018 1115 STG [...] nding done. lan of Care - Roseanne Ptae, RUPA - 12/09/2018 5:11 AM PDTProblem: Patient [...] Therapy Discharge Recommendations are: Recommended discharge disposition: fci facility, moth exterminator acute care facility (vs (pt needs to [...] the front of the walker. Level of Mingo: minimal assist (75% patient effort), set up [...] go functional dista nces. Bed-Chair, Level of Mingo: minimal assist (75% patient effort), verbal cues required , set up required, tactile cues required Chair-Bed, Level of Mingo: minimal assist (75% patient effort), set up required, ignacio bal cues required, tactile cues required Vmg-Wwjyj-Eat, Assistive Device: 2 wheeled walker (FWW) Sit-Stand, Level of Mingo: minimal assist (75% patient effort), set up required, ignacio bal cues required, tactile cues required Stand-Sit, Level of Mingo: minimal assist (75% patient effort), set up required, ignacio bal cues required, tactile cues required Zeu-Dwgzx-Rsk, Assistive Device: 2 wheeled walker (FWW) Maintain [...] HOB elevated, bed rails Scoot/Bridge, Level of Mingo: stand by assist Supine to Sit, Level of Mingo: stand by assist Sit to Supine, Level of Mingo: not tested Safety Issues: decreased use of [...] STG Review Date 12/09/18 at 12/06/2018 1115 Rxzsli-Ppw-Tohzsr Goal Most Recent Value STG Status new at 12/06/2018 1115 STG Mingo Level modified independent at 12/06/2018 1115 STG Assistive Device none at 12/06/2018 1115 Sil-Aqdej-Wqb Goal Most Recent Value STG Status new at 12/06/2018 1115 STG Mingo Level modified independent at 12/06/2018 1115 STG Assistive Device 2 wheeled walker (FWW) at 12/06/2018 1115 Gait Goal Most Recent Value STG Status new at 12/06/2018 1115 STG Mingo Level modified independent at 12/06/2018 1115 STG [...] Therapy Discharge Recommendations are: Recommended discharge disposition: fci facility (TBD) Post discharge occupational therapy recommendation: [...] safety at home. LB Dressing, Level of Mingo: stand by assist, verbal cues required Assistive [...] HOB elevated, bed rails Scoot/Bridge, Level of Mingo: stand by assist Supine to Sit, Level of Mingo: stand by assist Sit to Supine, Level of Mingo: not tested Safety Issues: decreased use of [...] STG Status new at 12/08/2018 0838 STG Mingo Level modified independent at 12/08/2018 0838 Tub/Shower Transfer Goal Most Recent Value Tub/Shower Type tub/shower combo at 12/08/2018 0838 STG Status new at 12/08/2018 0838 STG Mingo Level modified independent at 12/08/2018 0838 Electronically signed by: Daina Dumont OT, 12/08/2018 9:24 lan of Care - Jazz acosta, Elie Almanza, ARTIST BLACKSMITH - 12/07/2018 9:01 PM PDTProblem: Patient Care [...] 10:27 lan of Care - Wisam Ye, AUTOMOBILE UPHOLSTERER - 12/07/2018 9:52 AM PDTProblem: Patient Care [...] neck of righ t femur, initial encounter ([facility]) [S72.001A]. Switch Inspector visit was part of routine rounding. Spiritual Evaluation: The patient was resting in a bed and was not receptive to spiritual care at this time. She was calm, but expressed some frustration. She did not desire to talk about her concerns. She has spiritual practices and will contact someone from [place] if neede d. She has a sister who is supportive, but she did not desire to talk about her support sys [facility]. Spiritual Interventions: The phlebotomy specialist attended, offered care, and explored meaning. Spiritual [...] mild imbalance due to pain. Level of Mingo: minimal assist (75% patient effort), set up [...] imbalance on initial stand. Bed-Chair, Level of Mingo: minimal assist (75% patient effort), verbal cues required , set up required, tactile cues required Chair-Bed, Level of Mingo: not tested Xdw-Eksan-Gff, Assistive Device: 2 wheeled walker (FWW) Sit-Stand, Level of Mingo: minimal assist (75% patient effort), set up required, ignacio bal cues required, tactile cues required Stand-Sit, Level of Mingo: minimal assist (75% patient effort), set up required, ignacio bal cues required, tactile cues required Tfm-Jliop-Ttc, Assistive Device: 2 wheeled walker (FWW) Maintain Weight Bearing Status: able to maintain weight bearing status Safety Issues: sequencing ability decreased, step length decreased, weight-shifting ability decreased Impairments: decreased flexibility, pain, impaired balance Bed Mobility No physical assist needed. extra time and effort due to pain. able to sit EOB using arms for support. Assistive Device: HOB elevated, bed rails Scoot/Bridge, Level of Mingo: contact guard assist Supine to Sit, Level of Mingo: contact guard assist Sit to Supine, Level of Mingo: not tested Safety Issues: decreased use of legs for bridging/pushing Impairments: decreased flexibility, pain, strength decreased ROM L LE ROM: WFL R LE ROM: limited by pain Strength L LE Strength: Grossly 4-/5 R LE Strength: limited by pain PT Goal Review Date Most Recent Value STG Review Date 12/09/18 at 12/06/2018 1115 Ukfxge-Thm-Mpzxtx Goal Most Recent Value STG Status new at 12/06/2018 1115 STG Mingo Level modified independent at 12/06/2018 1115 STG Assistive Device none at 12/06/2018 1115 Ifn-Xpocr-Wod Goal Most Recent Value STG Status new at 12/06/2018 1115 STG Mingo Level modified independent at 12/06/2018 1115 STG Assistive Device 2 wheeled walker (FWW) at 12/06/2018 1115 Gait Goal Most Recent Value STG Status new at 12/06/2018 1115 STG Mingo Level modified independent at 12/06/2018 1115 STG Assistive Device 2 wheeled walker (FWW) at 12/06/2018 1115 STG Distance (feet) 150 feet at 12/06/2018 1115 Electronically signed by: Fred Galvan, PT, 12/06/2018 11:26 lan of Care - Liam Goodwin, ARTIST BLACKSMITH - 12/06/2018 9:36 AM PDT Problem: Patient [...] 3 12-14 4 15+ 5 lan of [facility] - Elisa Chen RN - 12/06/2018 4:58 [...] 1L. Does not use O2 at baseline. Overweaver eugenie N/T to BUE/BLE. D/P moderate. M/S /. Pulses 2+. Dilaudid given for pain. Dressing to R LE CDI. Not up yet. Will have PT eval today. Dialysis done yesterday. Dressing over fistula CDI. Al draining clear yellow urine. Passing flatus. Bowel tones active. Last BM 12/05. Appeared to sleep well between. lan of [facility] - Elisa Chen RN - 12/06/2018 12:10 [...] Outcome: Improving Visited with this patient from [place] who fell 2x in one week and fractured her femur. Patient was transferred here for orthopedic intervention. Patient had surgery and had screw fixation of the femur. Patient is a dialysis patient and was getting ready for dialysis wh en this foster care case manager went to see her. Patient said that she is normally independent and linda s not use a mobility aid. She said that when discharged she would return to her sister's [facility] in [place] where she resides with her sister who [...] R?MRN: | | | | | | [id number] | | | [id number] | | | riteri | | | [...] | | | yMedic | | | al/Omna | | | [email or web address] | | | /21/19 | | | 12:00 | | | AM | | | [facility] | | | y | | | [...] | | | [facility] | | [place] | | | [facility] | | | [facility] | | | [facility] | | | y | | | [...] | | | St. | | | [facility] | | | y H. | | [...] | | e of | | | kake | | | | | | mckeon [...] | | | St. | | | [facility] | | | y H. | | [...] the | | | | | | concrete vibrator operator | | | al | | | [...] | | | St. | | | [facility] | | | y H. | | [...] | | e of | | | kake | | | | | | mckeon [...] | | | [facility] | [place] | | | ID | | | [...] | | | [facility] | | | [place] | | [place] | | | ID | | | [...] | | | [facility] | | | [place] | | [place] | | | ID | | | [...] | | | [facility] | | | [place] | | | [place] | | | ID | | | [...] | | | [facility] | | | [place] | | | [place] | | | ID | | | [...] | | | [facility] | | | [facility] | | | | | | HEALTH [...] | | | [id number] | | | [id number] | | | [phone] | | | [...] [address] | [place] | [phone] | | [facility] | | [address] | | | - LABORATORY | | [...] ST. | [address] | [place], [place] | [phone] | | [facility] | | [address] | | | - LABORATORY | | [...] [address] | [place] | [phone] | | [facility] | | [address] | | | - LABORATORY | | [...] + | [facility] | [address] | [place] | [phone] | | [facility] | | [address] | | | [...] | | | POC | | | [facility] | | | | | [...] [address] | [place] | [phone] | | [facility] | | [address] | | | - LABORATORY | | [...] + | [facility] | [address] | [place] | [phone] | | [facility] | | [address] | | | - LABORATORY | | [...] + | [facility] | [address] | [place] | [phone] | | [facility] | | [address] | | | - LABORATORY | | [...] ST. | [address] | [place] | [phone] | | [facility] | | [address] | | | - LABORATORY | | [...] | | POC | | | [facility] | | | | | | [...] [address] | [place] | [phone] | | [facility] | | [address] | | | - LABORATORY | | [...] | | POC | | | [facility]ela [facility] | | | | | | [...] + | [facility] | [address] | [place] | [phone] | | [facility] | | [address] | | | - LABORATORY | | [...] [address] | [place] | [phone] | | [facility] | | [address] | | | - LABORATORY | | [...] + | [facility] | [address] | [place] | [phone] | | [facility] | | [address] | | | - LABORATORY | | [...] | [address] | [address] | [place] | [phone] | | [facility] | | [address] | | | - LABORATORY | | [address] | [place] | [phone] | | [facility] | | [address] | | | - LABORATORY | | [...] + | [facility] | [address] | [place] | [phone] | | [facility] | | [address] | | | - LABORATORY | | [...] [address] | [place] | [phone] | | [facility] | | [address] | | | - LABORATORY | | [...] [address] | [place] | [phone] | | [facility] | | [address] | | | - LABORATORY | | [...] + | [facility] | [address] | [place] | [phone] | | [facility] | | [address] | | | - LABORATORY | | [...] [address] | [place] | [phone] | | [facility] | | [address] | | | - LABORATORY | | [...] [address] | [place] | [phone] | | [facility] | | [address] | | | - LABORATORY | | [...] [address] | [place] | [phone] | | [facility] | | [address] | | | - LABORATORY | | [...] + | [facility] | [address] | [place] | [phone] | | [facility] | | [address] | | | - LABORATORY | | [...] | | | | mL/min/1.73m2 | [facility] | | | [facility] | | | MEDICAL | | | [...] [address] | [place] | [phone] | | [facility] | | [address] | | | - LABORATORY | | [...] + | [facility] | [address] | [place] | [phone] | | [facility] | | [address] | | | - LABORATORY | | [...] [address] | [place] | [phone] | | [facility] | | [address] | | | - LABORATORY | | [address] | [place] | [phone] | | [facility] | | [address] | | | [...] ST. | [address] | [place], [place] | [phone] | | [facility] | | [address] | | | - LABORATORY | | [...] [address] | [place] | [phone] | | [facility] | | [address] | | | - LABORATORY | | [...] + | [facility] | [address] | [place] | [phone] | | [facility] | | [address] | | | - LABORATORY | | [...] [address] | [place] | [phone] | | [facility] | | [address] | | | - LABORATORY | | [...] mL/min/1.73m2 | [facility] | | | EMIRATI | | | MEDICAL | | | [...] | [address] | [address] | [place] | [phone] | | [facility] | | [address] | | | - LABORATORY | | [...] [address] | [place] | [phone] | | [facility] | | [address] | | | - LABORATORY | | [...] | | | | | Intravenous, ONCE, [place] 12/04/18 at | | PM PDT | | | | | 1440, For 1 dose | | | | | | + +-------+ +--------+---+---+ +---+---+ | | | +---+---+ + +-------+ +------+---+---+ | HYDROmorphone (DILAUDID) | Given | 12/05/19 | 1 mg | | | | injection 1 mg 1 mg, | | 19 3:16 | | | | | Intravenous, ONCE, [place] 12/04/18 at | | PM PDT | [...] | | | | | | | 8965-3115 Use NIGHT DOSE for | | | | | | | doses scheduled: HS, 3AM, | | | | | | | Nighttime 8966-4852, | | | | | | + [...] scheduled: AC, NPO, Daytime | | | 0489-7774 Use NIGHT DOSE for | | | doses scheduled: HS, 3AM, | | | Nighttime 4814-8569, | | + +---+ | | | [...]
--- OUTSIDE RECORDS SUMMARY | ~2020-03-23 | XMS | Encounter Summary ---
Demographics + + + | Address | [address] | | | [place] [address] | + + + | Home Phone [...] Author | [facility] | | | and Kamaljitana | + + + | Organization | [facility] | | | and [place] | + + + | Address | Unknown | + + + | Phone | Unavailable | + + + Support + + + + + | Name | Relationship | Address | Phone | + + + + + | India Tilley | ECON | [address] | | | | | [place], [place] | | | | | [address] | | + + + + + [...] Team Providers + +------+ + | Care Butt Presser Name | Role | Phone | [...] | | | | renal | [place] [address] | [address] | | | | | disease | | [address] | | | | | (HCC) | CONFEDERATED | [address] | | | | | Procedures | WAY | [place], | | | | | NE OFFICE | [place], | [place] [address] | | | | | OUTPATIENT | [place] [address] | Phone: | | | | | VISIT 25 | Phone: | [phone] | | | | | MINUTES NE | [phone] | Fax: | | | | | ESRD RELATED | Fax: | [phone] | | | | | SVC MONTHLY | [phone] | | | | | | 20&/> [...] | | [place] [address] | [place] [address] | | | | | [address] | [phone] | | | | | [phone] | | | +--------+ + + + [...]
--- OUTSIDE RECORDS SUMMARY | ~2020-03-23 | XMS | Encounter Summary ---
Demographics + + + | Address | [address] | | | [place] [address] | + + + | Home Phone [...] + | Author | [facility] | | | and [place]it[place] | + + + | Organization | [facility] | | | and [place] | + + + | Address | Unknown | + + + | Phone | Unavailable | + + + Support + + + + + | Name | Relationship | Address | Phone | + + + + + | India Tilley | ECON | [address] | | | | | [place], [place] | | | | | [address] | | + + + + + [...] Providers + +------+ + | Care Industrial Waste Inspector Name | Role | Phone | [...] | | | intervertebr | [address] | [place] [address] | | | | | al disc | [address] | Phone: | | | | | (pyogenic), | [place], [place] | [phone] | | | | | thoracic | [address] | Fax: | | | | | region (HCC) | Phone: | [phone] | | | | | | [phone] | | | | | | 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: | | | | | | s of | [phone] | | | | | | thoracic [...] + + | 06/13/ | Office | [facility] | Fabiana Miller, | 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 She denies fevers, chills, night sweats. She also still has a central sade e which was not addressed during her recent hospitalization. She is not sure who is handlin g this central line. She does not remember which company provided IV antibiotic therapy [facility]. She is states that she is [...] W/CANNULATED SCREWS; Surgeon: Scott Koroma MD; Location: [facility] MAIN OR HYSTERECTOMY MASTECTOMY 2006 left ear NOSE SURGERY 2009 OTHER SURGICAL HISTORY Right 03/28/2019 Procedure: TUNNEL PICC LINE PLACEMENT-6fr 22cm BARD Power Line; Surgeon: Jose Jiménez MD; Location: [facility] INTERVENTIONAL RADIOLOGY REMOVAL TUNNELED CATHETER Right 04/04/[address] Stephenson SHUNT PLACEMENT/INSERTION N/A 11/08/2017 Procedure: Tunneled Hemodialysis Catheter Placement; Surgeon: Nora Leo MD; Location : [facility] MAIN OR SHUNT PLACEMENT/INSERTION Right 02/04/2018 Procedure: INSERTION SHUNT HEMODIALYSIS W/ PERMACATH; Surgeon: Heather Navarro MD; L ocation: [facility] MAIN OR VEIN SURGERY Right 01/04/2018 Procedure: Right Transposed Basilic Vein to Proximal Radial Artery; Surgeon: Santos Stephenson MD, FACS; Location: [facility] MAIN OR SOCIAL HISTORY Social History [...] [facility] She was educated about the risks of permanent central line and risk of bacteremia. We are hoping to get her repeat CT-guided procedure within the next 7 days. The patient wi shes to do this in [place] and we will explore that possibility, otherwise she was expla ined that she has to come to [facility]. Side effects of medications, duration of therapy, [...] REFERENCE | | | | performed at [facility];[address] | | LAB | | | | [place] | | [facility] | | | | [address];[place] [address] | | LABORATORY | | + + + + + + + + | Specimen | + + | Blood | + + + + + + + | Performing | Address | City/State/Zipcode | Phone Number | | Organization | | | | + + + + + | REFERENCE LAB | [address] [place] [address] | [place], [place] | [phone] | | [facility] | Blvd[address] | [address] | | | LABORATORY | | | | + + + + + | REFERENCE LAB | [address] [place] [address] | [place], [place] | | | [facility] | Blvd[address] | [address] | | | LABORATORY | | | [...] REFERENCE | | | | performed at [facility];[address] | | LAB | | | | [place] | | [facility] | | | | [address];[place] [address] | | LABORATORY | | + + + + + + + + | Specimen | + + | Blood | + + + + + + + | Performing | Address | City/State/Zipcode | Phone Number | | Organization | | | | + + + + + | REFERENCE LAB | [address] [place], [place] [address] | [place], [place] | [phone] | | [facility] | Blvd. | [address] | | | LABORATORY | | | | + + + + + | REFERENCE LAB | [facility] | [place], [place] | | | [facility] | Blvd. | [address] | | | LABORATORY | | | [...]
--- OUTSIDE RECORDS SUMMARY | ~2020-03-23 | XMS | Encounter Summary ---
Demographics + + + | Address | [address] | | | [place] [address] | + + + | Home Phone [...] | Author | [facility] | | | and [place]it[place] | + + + | Organization | [facility] | | | and [place] | + + + | Address | Unknown | + + + | Phone | Unavailable | + + + Support + + + + + | Name | Relationship | Address | Phone | + + + + + | India Tilley | ECON | [address] | | | | | [place], [place] | | | | | [address] | | + + + + + [...] Providers + +------+ + | Care Mold Making Plastics Sheets Supervisor Name | Role | Phone | [...] [address] [place] | | | | | [place], [place] | [place] [address] | | | | | [address] | [phone] | | | | | [phone] | | | +--------+ + + + [...] 10/06/2017 9:42 AM TAYI contacted Rach at [facility] about getting a referral sent over [...]
--- OUTSIDE RECORDS SUMMARY | ~2020-03-23 | XMS | Encounter Summary ---
Demographics + + + | Address | [address] | | | [place] [address] | + + + | Home Phone [...] | Author | [facility] | | | and [place] | + + + | Organization | [facility] | | | and [place] | + + + | Address | Unknown | + + + | Phone | Unavailable | + + + Support + + + + + | Name | Relationship | Address | Phone | + + + + + | India Tilley | ECON | [address] | | | | | [place], [place] | | | | | [address] | | + + + + + [...] Team Providers + +------+ + | Care Independent Jeweler Name | Role | Phone | + [...] [place], | | | | | [place] ESRD | [facility], | [place] [address] | | | | | RELATED SVC | [place] | Phone: | | | | | MONTHLY | [address] | [phone] | | | | | 20&/> YR OLD | Phone: | Fax: | | | | | 4/> VISITS | [phone] | [phone] | | | | | | Fax: | | | | | | | [phone] | | +--------+--------+ + + + + [...] | | [address] | [place] [address] | | | | | [address] | [phone] | | | | | [phone] | | | +--------+ + + + [...] Y1 female who was seen at the [facility] on the MWF shift. She is intermittently dysphoric. However sh e denies cramps, hiccups or nausea. She refused to go for rehab after ORIF of her hip at [facility] on 12/04/18. In addition, I personally consulted [...] 11/03/2017 and then was DC to the [facility] [place]. Unfortunately, she h as had intermittent [...] by Gopi Muñoz DO. 01/15/19 14:57 CC: [facility] Scott Koroma MD [facility], [place], [place] Gopi Hassan DO - 01/09/2019 11:00 AM PD T docuoskar in thi s encounter Plan of Treatment Not on filedocumented as of this encounter Visit Diagnoses + + | Diagnosis | + + | End stage renal disease (HCC) - Primary End stage renal disease | + + documented in this encounter
--- OUTSIDE RECORDS SUMMARY | ~2020-03-23 | XMS | Encounter Summary ---
Demographics + + + | Address | [address] | | | [place] [address] | + + + | Home Phone [...] + | Author | [facility] | | | and [place]al[place]it[place] | + + + | Organization | [facility] | | | and [place] | + + + | Address | Unknown | + + + | Phone | Unavailable | + + + Support + + + + + | Name | Relationship | Address | Phone | + + + + + | nIdia Tilley | ECON | [address] | | | | | [place], [place] | | | | | [address] | | + + + + + [...] Providers + +------+ + | Care Manager Federal Name | Role | Phone | + [...] [place], | | | | | ([facility]) | [place], | [place] [address] | | | | | | [place] [address] | Phone: | | | | | | Phone: | [phone] | | | | | | [phone] | Fax: | | | | | | Fax: | [phone] | | | | | | [phone] | | +--------+ + + + + + Encounter Details +--------+---------+ + + + | Date | Type | Department | Care Team | Description | +--------+---------+ + + + | 04/04/ | Office | [facility] | Santos Stephenson | Chronic kidney | | 2018 | Visit | SURGERY [address] | MD Kinga, FACS [address] | disease, stage V | | | | [address] [place] [facility], [place] | [address] [facility] | (HCC) (Primary Dx) | | | | [address] | [place] [address] | | | | | [phone] | [phone] | | | | | | | [...] can shower tomorrow. Patient to follow with industrial sewer and primary care. I will be available [...]
--- OUTSIDE RECORDS SUMMARY | ~2020-03-23 | XMS | Encounter Summary ---
Demographics + + + | Address | [address] | | | [place] [address] | + + + | Home Phone [...] | Author | [facility] | | | and [place]it[place] | + + + | Organization | [facility] | | | and [place] | + + + | Address | Unknown | + + + | Phone | Unavailable | + + + Support + + + + + | Name | Relationship | Address | Phone | + + + + + | India Tilley | ECON | [address] | | | | | [place], [place] | | | | | [address] | | + + + + + [...] Team Providers + +------+ + | Care Used Car Manager Name | Role | Phone | [...] | | | stage renal | [employer] | [address] | | | | | disease) | [address] | [address] | | | | | (HCC) | WAY | [address] | | | | | Procedures | [place], | [place], | | | | | [place] OFFICE | [place] [address] | [place] [address] | | | | | OUTPATIENT | Phone: | Phone: | | | | | VISIT 25 | [phone] | [phone] | | | | | MINUTES | Fax: | Fax: | | | | | | [phone] | [phone] | +--------+--------+ + + + + Encounter [...] | [address] [place] | dialysis ([facility]) | | | | [place] | [place] [address] | (Primary Dx) | | | | [address] | [phone] | | | | | [phone] | | | +--------+ + + + [...]
--- OUTSIDE RECORDS SUMMARY | ~2020-03-23 | XMS | Encounter Summary ---
Demographics + + + | Address | [address] | | | [place] [address] | + + + | Home Phone [...] + | Author | [facility] | | | and [place]it[place] | + + + | Organization | [facility] | | | and [place] | + + + | Address | Unknown | + + + | Phone | Unavailable | + + + Support + + + + + | Name | Relationship | Address | Phone | + + + + + | India Tilley | ECON | [address] | | | | | [place], [place] | | | | | [address] | | + + + + + [...] Team Providers + +------+ + | Care Java J2Ee Application Developer Name | Role | Phone | + +------+ + PCP | Unavailable | + +------+ + Encounter Details +--------+ + + + + | Date | Type | Department | Care Team | Description | +--------+ + + + + | 10/22/ | [facility] | [facility] | Gopi Muñoz | Chronic kidney | | 2018 | Encounter | MED [facility] ULTR[facility] | M, DO [address] | disease, stage V | | | | [address] [place] | [address] [place] | (HCC) | | | | [place], [place] | [place] [address] | | | | | [address] | [phone] | | | | | [phone] | | | | | | | [...] | | BILATERAL | | PST | ([facility]) | results section. | + +--------+ + [...]
--- OUTSIDE RECORDS SUMMARY | ~2020-03-23 | XMS | Encounter Summary ---
Demographics + + + | Address | [address] | | | [place] [address] | + + + | Home Phone [...] + | Author | [facility] | | | and [place]it[place] | + + + | Organization | [facility] | | | and [place] | + + + | Address | Unknown | + + + | Phone | Unavailable | + + + Support + + + + + | Name | Relationship | Address | Phone | + + + + + | India Tilley | ECON | [address] | | | | | [place], [place] | | | | | [address] | | + + + + + [...] Team Providers + +------+ + | Care Stocking Inspector Name | Role | Phone | [...] [address] [place] | | | | | [place], [place] | [place] [address] | | | | | [address] | [phone] | | | | | [phone] | | | +--------+ + + + [...]
--- OUTSIDE RECORDS SUMMARY | ~2020-03-23 | XMS | Encounter Summary ---
Demographics + + + | Address | [address] | | | [place] [address] | + + + | Home Phone [...] Author | [facility] | | | and [place]it[place] | + + + | Organization | [facility] | | | and [place] | + + + | Address | Unknown | + + + | Phone | Unavailable | + + + Support + + + + + | Name | Relationship | Address | Phone | + + + + + | India Tilley | ECON | [address] | | | | | [place], [place] | | | | | [address] | | + + + + + [...] Team Providers + +------+ + | Care Linen Room Custodian Name | Role | Phone | [...] | | | | | | | ([facility]) | | | +--------+--------+ + + [...] SCREWS | | | | [address] | [place] | | | | | [place] | [address] | | | | | [address] | | | | | | [phone] | | | +--------+---------+ + + + [...] Electronically signed by: Scott Brooks, 12/20/2018 12:05 [facility]ronically signed by Scott Brooks MD at 05/2019 12:10 PM PDTdocumented in this encounter Discharge Instructions Instructions Gopi Muñoz, - . Please keep your old HD appt. at [facility] for 12/12/2018. 2. Call our Office if you change your mind and wish to go to [facility] , for further R ehab. 3. [...] might be d ifferent from the original. [facility] [address] [place] [address] PROGRESS NOTE Pt. Name/Age/: Ara Tilley 73 y.o. 1945 Med. Record Number: [id number] Date of admission: 12/04/2018 NEPHROLOGY HPI - [...] Lungs: Prolonged expiratory phase, with findings of Staples rales lower 1/4 both lungs. Abdomen: Soft, [...] HD tomorrow and assess for DC soon. [facility] Amol Green MD - 12/08/2018 3:29 PM [...] going to any Rehab. Ctr after DC. [facility] Scott Tadeo MD - 12/07/2018 8:56 AM [...] Hassan DO - 12/06/2018 5:33 PM PDT [facility] [address] [place] [address] PROGRESS NOTE Pt. Name/Age/: Ara Tilley 73 y.o. 1945 Med. Record Number: [id number] Date of admission: 12/04/2018 NEPHROLOGY HPI - [...] to go home when felt ap propriate [facility] Scott Tadeo MD - 12/06/2018 8:02 AM [...] did not want to answer medication history a&p technician's questions; barely verifie d her name. Answered questions with head nods or patients stating that she was not taking a medication. Medication: Prior to Admission Sig: Patient taking differently HEEL BUFFER as: Atorvastatin 20 mg tablet Take 1 [...] idea what this medication was Best possible HEEL BUFFER medication list after pharmacy review: PT REPORTED [...] into the vein Three times a w ione. Historical Provider, epoetin karthik (EPOGEN, PROCRIT) 10,000 [...] performed and electronically signed by Kerry Jordan, Hobber 12/05/2018 14:45 Reviewed by Flora Watts, PharmD [...] might be different fro m the original. [facility] HISTORY AND PHYSICAL EXAMINATION [...] right hip. Today she fell again at [facility] and this time with severe hip pain [...] Placement; Surgeon: Nora Leo MD; Location : [facility] MAIN OR SHUNT PLACEMENT/INSERTION Right 02/04/2018 Procedure: INSERTION SHUNT HEMODIALYSIS W/ PERMACATH; Surgeon: Heather Navarro MD; L ocation: [facility] MAIN OR VEIN SURGERY Right 01/04/2018 Procedure: Right Transposed Basilic Vein to Proximal Radial Artery; Surgeon: Santos Stephenson MD, FACS; Location: [facility] MAIN OR Allergies: Allergies Allergen Reactions [...] Gopi Muñoz, - 12/05/2018 5:06 PM PDT [facility] [address] [place] [address] NEPHROLOGY CONSULT Pt. Name/Age/: Ara Tilley 73 y.o. 1945 Med. Record Number: [id number] Date of admission: 12/04/2018 Reason for consultation: [...] attending all her prescribed txs at the [facility], recently. Perfecto maradiaga I was rounding there in October, and the rail car mechanic, Aleta Day RN, advised me on mult iple occasions that she had absenteeism or truncated tx, AMA. PAST MEDICAL HISTORY: 1. ESRD 2 diabetic glomerulosclerosis with the patient beginning Inpt HD in 11/03/2017 and then was DC to the [facility] at [place], [place]. Unfortunately, she h as had intermittent [...] daily. ETOH: denies. Single; lives independently, in [place]. FAMILY HISTORY: Father: in his 70's of [...] Will follow the patient wit h you. [facility] CC: [facility], [place]. Scott Brooks MD [facility], [place] Haris Ahmadi MD - 12/04/2018 2:51 PM PDT [facility] [place] HOSPITALIST CONSULT NOTE Patient: Ara Tilley : 1945: Age: 73 y.o. MedRec: [id number] Admission date: 12/04/2018 Hospital day # : [...] from HD for over 30 days 08/2018 [facility] hypervolemia hospitalization 06/2018 [facility] PNA LLL hospitalzation 05/2018 [facility] noncompliant w/ [...] Placement; Surgeon: Nora Leo MD; Location : [facility] MAIN OR SHUNT PLACEMENT/INSERTION Right 02/04/2018 Procedure: INSERTION SHUNT HEMODIALYSIS W/ PERMACATH; Surgeon: Heather Navarro MD; L ocation: [facility] MAIN OR VEIN SURGERY Right 01/04/2018 Procedure: Right Transposed Basilic Vein to Proximal Radial Artery; Surgeon: Santos Stephenson MD, FACS; Location: [facility] MAIN OR Patient Active Problem [...] into the vein Three times a w ione. Historical Provider, epoetin karthik (EPOGEN, PROCRIT) 10,000 [...] signed by: Haris Segal MD 12/04/2018 15:14 [facility] initial inpatient hospital time greater than 70 minutes with 1/2 spent on face to face ti me for assessment and plan -Medical Decision Maker Patient. Assessment and Plan were discussed with patient -[facility] Documentation I expect this patient will be hospitalized for 2 or more days and expect the post-hospital plan to be home. -I reviewed relevant imaging, EKG and old records. documented in this [facility] ED Notes Priti Burleson RN - 12/04/2018 1:40 PM PDTStates she tripped and fell this morning and l anded onto her right hip . Complains of severe pain with movement and weight bearing. Electr onically signed by Priti Burleson RN at 12/04/2018 1:41 PM Nick Viera MD - 1:40 PM PDT [facility] Ara Tilley Emergency Department Encounter Note [address] [place] [id number] PCP:Francisca Womack PA-C [phone] CHIEF COMPLAINT: Chief [...] Placement; Surgeon: Nora Leo MD; Location : [facility] MAIN OR SHUNT PLACEMENT/INSERTION Right 02/04/2018 Procedure: INSERTION SHUNT HEMODIALYSIS W/ PERMACATH; Surgeon: Heather Navarro MD; L ocation: [facility] MAIN OR VEIN SURGERY Right 01/04/2018 Procedure: Right Transposed Basilic Vein to Proximal Radial Artery; Surgeon: Santos Stephenson MD, FACS; Location: [facility] MAIN OR CURRENT MEDICATIONS Previous [...] were reviewed along with EMS notes and jail record s if applicable. (See chart for [...] of neck of right femur, initial encounter ([facility]) S72.001A 820.8 Nick Mendoza MD 12/04/18 1456 documented in this encou nter Miscellaneous Notes Plan of Care - Margaret Dempsey, PLUCK TRIMMER - 12/10/2018 4:03 PM PDTProblem: Discharge Planning Goal: Patient will be discharged in a safe manner Outcome: Improving Spoke with patients RN's, Rodrigue, the day after this patient discharged (Wednesday). This CM w as not the patient's CM yesterday upon discharge. Rodrigue requested that CM fax the [facility] HH or jorge over to [facility]. This CM faxed the order and chart notes to [facility] [phone] and requested that they follow up with [...] her body asking the therapist to leave. LOADERS was called in for patient privacy concerns. [...] with stance phase of gait Level of [place]: stand by assist Assistive Device: 2 wheeled walker (FWW) Distance (feet): 15 Gait Pattern Analysis: 3-point gait Safety Issues: sequencing ability decreased, step length decreased, weight-shifting ability decreased Impairments: decreased flexibility, pain, impaired balance Transfers Patient needing additional time and encouragement to mobilize Bed-Chair, Level of [place]: stand by assist Chair-Bed, Level of [place]: stand by assist Xzh-Cldji-Vjl, Assistive Device: 2 wheeled walker (FWW) Sit-Stand, Level of [place]: minimal assist (75% patient effort), set up required, ignacio bal cues required, tactile cues required Stand-Sit, Level of [place]: minimal assist (75% patient effort), set up required, ignacio bal cues required, tactile cues required Cxz-Blelj-Czu, Assistive Device: 2 wheeled walker (FWW) Maintain Weight Bearing Status: able to maintain weight bearing status Safety Issues: sequencing ability decreased, step length decreased, weight-shifting ability decreased Impairments: decreased flexibility, pain, impaired balance Bed Mobility pt reporting continued pain in the right lower extremity it is not limiting mobility today Assistive Device: HOB elevated, bed rails Scoot/Bridge, Level of [place]: stand by assist Supine to Sit, Level of [place]: stand by assist Sit to Supine, Level of [place]: not tested Safety Issues: decreased use of [...] STG Review Date 12/09/18 at 12/06/2018 1115 Rclyxr-Lid-Mzikic Goal Most Recent Value STG Status new at 12/06/2018 1115 STG [place] Level modified independent at 12/06/2018 1115 STG Assistive Device none at 12/06/2018 1115 Ckp-Mytfw-Gce Goal Most Recent Value STG Status new at 12/06/2018 1115 STG [place] Level modified independent at 12/06/2018 1115 STG Assistive Device 2 wheeled walker (FWW) at 12/06/2018 1115 Gait Goal Most Recent Value STG Status new at 12/06/2018 1115 STG [place] Level modified independent at 12/06/2018 1115 STG [...] are: Recommended discharge disposition: long term facility, 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 Level of [place]: minimal assist (75% patient effort), set up [...] go functional dista nces. Bed-Chair, Level of [place]: minimal assist (75% patient effort), verbal cues required , set up required, tactile cues required Chair-Bed, Level of [place]: minimal assist (75% patient effort), set up required, ignacio bal cues required, tactile cues required Sel-Erpww-Vxx, Assistive Device: 2 wheeled walker (FWW) Sit-Stand, Level of [place]: minimal assist (75% patient effort), set up required, ignacio bal cues required, tactile cues required Stand-Sit, Level of [place]: minimal assist (75% patient effort), set up required, ignacio bal cues required, tactile cues required Nqb-Rkvdr-Gep, Assistive Device: 2 wheeled walker (FWW) Maintain [...] HOB elevated, bed rails Scoot/Bridge, Level of [place]: stand by assist Supine to Sit, Level of [place]: stand by assist Sit to Supine, Level of [place]: not tested Safety Issues: decreased use of [...] STG Review Date 12/09/18 at 12/06/2018 1115 Hpxrdw-Fao-Bjcydy Goal Most Recent Value STG Status new at 12/06/2018 1115 STG [place] Level modified independent at 12/06/2018 1115 STG Assistive Device none at 12/06/2018 1115 Lcr-Bcybv-Pkd Goal Most Recent Value STG Status new at 12/06/2018 1115 STG [place] Level modified independent at 12/06/2018 1115 STG Assistive Device 2 wheeled walker (FWW) at 12/06/2018 1115 Gait Goal Most Recent Value STG Status new at 12/06/2018 1115 STG [place] Level modified independent at 12/06/2018 1115 STG [...] safety at home. LB Dressing, Level of [place]: stand by assist, verbal cues required Assistive [...] HOB elevated, bed rails Scoot/Bridge, Level of [place]: stand by assist Supine to Sit, Level of [place]: stand by assist Sit to Supine, Level of [place]: not tested Safety Issues: decreased use of [...] STG Status new at 12/08/2018 0838 STG [place] Level modified independent at 12/08/2018 0838 Tub/Shower Transfer Goal Most Recent Value Tub/Shower Type tub/shower combo at 12/08/2018 0838 STG Status new at 12/08/2018 0838 STG [place] Level modified independent at 12/08/2018 0838 Electronically signed by: Daina Dumont OT, 12/08/2018 9:24 lan of Care - Elie Castillo V, MAKING DEPARTMENT PREPARER - 12/07/2018 9:01 PM PDTProblem: Patient Care [...] sterile tape on sites . Reported to aMyelin, beau RN, that dialysis treatment was complete. [...] neck of righ t femur, initial encounter ([facility]) [S72.001A]. Yarrow Gatherer visit was part of routine rounding. Spiritual Evaluation: The patient was resting in a bed and was not receptive to spiritual care at this time. She was calm, but expressed some frustration. She did not desire to talk about her concerns. She has spiritual practices and will contact someone from the [place] if neede d. She has a sister who is supportive, but she did not desire to talk about her support sys tem. Spiritual Interventions: The submersible pilot attended, offered care, and explored meaning. Spiritual [...] mild imbalance due to pain. Level of [place]: minimal assist (75% patient effort), set up [...] imbalance on initial stand. Bed-Chair, Level of [place]: minimal assist (75% patient effort), verbal cues required , set up required, tactile cues required Chair-Bed, Level of [place]: not tested Cpt-Dkfsu-Myp, Assistive Device: 2 wheeled walker (FWW) Sit-Stand, Level of [place]: minimal assist (75% patient effort), set up required, ignacio bal cues required, tactile cues required Stand-Sit, Level of [place]: minimal assist (75% patient effort), set up required, ignacio bal cues required, tactile cues required Ckr-Kbhif-Kfy, Assistive Device: 2 wheeled walker (FWW) Maintain Weight Bearing Status: able to maintain weight bearing status Safety Issues: sequencing ability decreased, step length decreased, weight-shifting ability decreased Impairments: decreased flexibility, pain, impaired balance Bed Mobility No physical assist needed. extra time and effort due to pain. able to sit EOB using arms for support. Assistive Device: HOB elevated, bed rails Scoot/Bridge, Level of [place]: contact guard assist Supine to Sit, Level of [place]: contact guard assist Sit to Supine, Level of [place]: not tested Safety Issues: decreased use of legs for bridging/pushing Impairments: decreased flexibility, pain, strength decreased ROM L LE ROM: WFL R LE ROM: limited by pain Strength L LE Strength: Grossly 4-/5 R LE Strength: limited by pain PT Goal Review Date Most Recent Value STG Review Date 12/09/18 at 12/06/2018 1115 Jykycd-Anh-Ojgdhq Goal Most Recent Value STG Status new at 12/06/2018 1115 STG [place] Level modified independent at 12/06/2018 1115 STG Assistive Device none at 12/06/2018 1115 Qtn-Rmrwz-Lck Goal Most Recent Value STG Status new at 12/06/2018 1115 STG [place] Level modified independent at 12/06/2018 1115 STG Assistive Device 2 wheeled walker (FWW) at 12/06/2018 1115 Gait Goal Most Recent Value STG Status new at 12/06/2018 1115 STG [place] Level modified independent at 12/06/2018 1115 STG Assistive Device 2 wheeled walker (FWW) at 12/06/2018 1115 STG Distance (feet) 150 feet at 12/06/2018 1115 Electronically signed by: Fred Galvan, PT, 12/06/2018 11:26 lan of Care - Christy aburtomauro Liam F, MAKING DEPARTMENT PREPARER - 12/06/2018 9:36 AM PDT Problem: Patient [...] O2 as required for target Sats. - Aar has PEP therapy for airway clearance and [...] 1L. Does not use O2 at baseline. [employer]mer eugenie N/T to BUE/BLE. D/P moderate. M/S 4/5. Pulses 2+. Dilaudid given for pain. Dressing to R LE CDI. Not up yet. Will have PT eval today. Dialysis done yesterday. Dressing over fistula CDI. Al draining clear yellow urine. Passing flatus. Bowel tones active. Last BM 12/05. Appeared to sleep well between. lan [facility] Peter lazcano, Elisa Mast RN - 12/06/2018 [...] Castro RN at 12/05/2018 11:11 AM PDTPlan [facility] - 12/05/2018 10:38 AM PDTProblem: Discharge Planning Goal: Patient will be discharged in a safe manner Outcome: Improving Visited with this patient from [place] who fell 2x in one week and fractured her femur. Patient was transferred here for orthopedic intervention. Patient had surgery and had screw fixation of the femur. Patient is a dialysis patient and was getting ready for dialysis wh en this pillowcase cleaner went to see her. Patient said that she is normally independent and linda s not use a mobility aid. She said that when discharged she would return to her sister's [facility] in [place] where she resides with her sister who [...] R?MRN: | | | | | | [id number] | | | [id number] | | | riteri | | | [...] | | | St. | | | [place] | | | y | | | [...] | | | [facility] | | | [place] | | | 3 0 | | | [facility] | | | St. | | | [place] | | | y | | | [...] | | | St. | | | [place] | | | y H. | | [...] | | e of | | | cachil dehe | | | | | | mckeon [...] | | | St. | | | [place] | | | y H. | | [...] the | | | | | | type cutter | | | al | | | [...] | | | St. | | | [place] | | | y H. | | [...] | | e of | | | cachil dehe | | | | | | mckeon [...] | | | [facility] | | | [place] | | | [place] | | | ID | | [...] | | | [facility] | | | [place] | | | [place] | | | ID | | [...] | | | Luke[facility] | | | [place] | | | [place] | | | ID | | [...] | | | [facility] | | | [place] | | | [place] | | | ID | | [...] | | | [facility] | | | [place] | | | [place] | | | ID | | [...] | | | [facility] | | | [place] | | | | | | HEALTH [...] | | | [id number] | | | [id number] | | | [phone] | | | [...] + | [facility] | [address] | [place] | [phone] | | [facility] | | [address] | | | - LABORATORY | | [...] + | [facility] | [address] | [place] | [phone] | | [facility] | | [address] | | | - LABORATORY | | [...] ST. | [address] | [place], [place] | [phone] | | [facility] | | [address] | | | - LABORATORY | | [...] [address] | [place] | [phone] | | [facility] | | [address] | | | - LABORATORY | | [...] + | [facility] | [address] | [place] | [phone] | | [facility] | | [address] | | | - LABORATORY | | [...] ST. | [address] | [place] | [phone] | | [facility] | | [address] | | | - LABORATORY | | [...] [address] | [place] | [phone] | | [facility] | | [address] | | | - LABORATORY | | [...] | [address] | [address] | [place] | [phone] | | [facility] | | [address] | | | - LABORATORY | | [...] [address] | [place] | [phone] | | [facility] | | [address] | | | - LABORATORY | | [...] [address] | [place] | [phone] | | [facility] | | [address] | | | - LABORATORY | | [...] | | POC | | | [facility] | | | | | | MEDICAL [...] [address] | [place] | [phone] | | [facility] | | [address] | | | - LABORATORY | | [...] [address] | [place] | [phone] | | [facility] | | [address] | | | - LABORATORY | | [...] ST. | [address] | [place], [place] | [phone] | | [facility] | | [address] | | | - LABORATORY | | [...] + | [facility] | [address] | [place] | [phone] | | [facility] | | [address] | | | - LABORATORY | | [...] ST. | [address] | [place], [place] | [phone] | | [facility] | | [address] | | | - LABORATORY | | [...] [address] | [place] | [phone] | | [facility] | | [address] | | | - LABORATORY | | [...] + | [facility] | [address] | [place] | [phone] | | [facility] | | [address] | | | - LABORATORY | | [...] ST. | [address] | [place], [place] | [phone] | | [facility] | | [address] | | | - LABORATORY | | [...] [address] | [place] | [phone] | | [facility] | | [address] | | | - LABORATORY | | [...] [address] | [place] | [phone] | | [facility] | | [address] | | | - LABORATORY | | [...] [address] | [place] | [phone] | | [facility] | | [address] | | | - LABORATORY | | [...] [address] | [place] | [phone] | | [facility] | | [address] | | | - LABORATORY | | [...] [facility] | | | [place] | | | MEDICAL | | | [...] [address] | [place] | [phone] | | [facility] | | [address] | | | - LABORATORY | | [...] [address] | [place] | [phone] | | [facility] | | [address] | | | - LABORATORY | | [...] [address] | [place] | [phone] | | [facility] | | [address] | | | - LABORATORY | | [...] | [address] | [address] | [place] | [phone] | | [facility] | | [address] | | | - LABORATORY | | [...] + | [address] [facility] | [address] | [place], [place] | [phone] | | [facility] | | [address] | | | - LABORATORY | | [...] + + | [facility] | [address] | [place] | [phone] | | [facility] | | [address] | | | - LABORATORY | | [...] [address] | [place] | [phone] | | [facility] | | [address] | | | - LABORATORY | | [...] + | [facility] | [address] | [place] | [phone] | | [facility] | | [address] | | | - LABORATORY | | [...] mL/min/1.73m2 | [facility] | | | [place] | | | MEDICAL | | | [...] [address] | [place] | [phone] | | [facility] | | [address] | | | - LABORATORY | | [...] [address] | [place] | [phone] | | [facility] | | [address] | | | - LABORATORY | | [...] scheduled: AC, NPO, Daytime | | | 9622-6464 Use NIGHT DOSE for | | | doses scheduled: HS, 3AM, | | | Nighttime 8473-9672, | | + +---+ | | | [...] PRN, Decreased | | | Responsiveness, Starting [place] | | | 12/04/18 at 2011 | | + +---+ | | | + +---+ | olopatadine (PATANOL) 0.1% | | | ophthalmic solution 1 drop 1 | | | drop, Both Eyes, 2 TIMES DAILY, | | | First dose (after last | | | modification) on Ing[place] 12/04/18 at | | | 2100 | [...]
--- OUTSIDE RECORDS SUMMARY | ~2020-03-23 | XMS | Encounter Summary ---
Demographics + + + | Address | [address] | | | [place] [address] | + + + | Home Phone [...] Author | [facility] | | | and [place]it[place] | + + + | Organization | [facility] | | | and [place] | + + + | Address | Unknown | + + + | Phone | Unavailable | + + + Support + + + + + | Name | Relationship | Address | Phone | + + + + + | India Tilley | ECON | [address] | | | | | [place], [place] | | | | | [address] | | + + + + + | Yina aL | ECON | Unknown | | + + + + + | Yina Peterson | ECON | Unknown | | + + + + + | Leatah Casillas | ECON | Unknown | | + + + + + | Azael Ocasio | ECON | Unknown | | + + + + + | Lisa Fred | ECON | Unknown | | + + + + + Care Team Providers + +------+ + | Care Milk Sampler Name | Role | Phone | + +------+ + PCP | Unavailable | + +------+ + Encounter Details +--------+ + + + + | Date | Type | Department | Care Team | Description | +--------+ + + + + | 04/10/ | [facility] | [facility] | Patricia, | | | 2006 - | Encounter | [facility] | Venkatesh Forte MD [address] | | | | CENTER [address] | POPLJULIO CHEN | | | 04/12/ | | [place] | [place] [address] | | | 2006 | | [address] | [phone] | | | | | [phone] | | | +--------+ + + + [...]
--- OUTSIDE RECORDS SUMMARY | ~2020-03-23 | XMS | Encounter Summary ---
Demographics + + + | Address | [address] | | | [place] [address] | + + + | Home Phone [...] | Author | [facility] | | | and Kamaljitana | + + + | Organization | [facility] | | | and [place] | + + + | Address | Unknown | + + + | Phone | Unavailable | + + + Support + + + + + | Name | Relationship | Address | Phone | + + + + + | India Tilley | ECON | [address] | | | | | [place], [place] | | | | | [address] | | + + + + + [...] Team Providers + +------+ + | Care Religious Education Teacher Name | Role | Phone | [...] to | | | | [address] | [place] | Proximal Radial | | | | [place], [place] | [place] [address] | Artery | | | | [address] | [phone] | | | | | [phone] | | | +--------+---------+ + + + [...] what medicines and drugsyou take. This includes qqkf-vae-nvk nter medicines, herbs, supplements, alcohol or other [...] ke ep you safe. Date Last Reviewed: 08/13/201619993349-0334 [employer]. [address] [place] [id number]. All righ ts reserved. This information is not intended as a substitute for professional medical care. Always follow your healthcare professional's instructions. Located Within [facility] POST-OP INSTRUCTIONS: Arterio-Venous Fistula 1. [...] might be diff erent from the original. [facility] [place] SURGICAL INTERIM HISTORY AND [...] tunneled catheter worked well yesterday. I called [facility] and th ey confirmed catheter worked well. Considering this, I will not Change the catheter. Jus t do the arm fistula creation. PHYSICIAN'S VERIFICATION OF INFORMED CONSENT FOR BLOOD TRANSFUSION There is not a reasonable possibility that blood transfusion will be necessary as a result of the patient's procedure. Electronically signed by: Santos Stephenson, 01/04/2018 12:57 [facility] ield, Reynold Donaot MD, FACS - 12/30/2017 10:00 AM PDTFormatting [...] ? Francisca Womack PA-C Who is your Superintendent Local/Kidney Specialist ? Dr. Muñoz When was the [...] dialysis on Wednesday, Wednesday and Fridays in [place]. She states she has had breast cancer, had a LEFT side mastectomy. CARDIAC: Denies [place], chest pain or tightness. RISK: Never smoker, current 38 year diabetic. Family Hx of diabetes. States mother had kid cedric failure NICO: Patient has previously been diagnosed with sleep apnea. She had a sleep study performe d at [facility] but does not wear a CPAP [...] Placement; Surgeon: Nora Leo MD; Location : [facility] MAIN OR Allergies Allergen Reactions Lisinopril [...] REPORT: PATIENT NAME : Estefani Tilley EQUIPMENT: SonCompositence M-Turbo with 10-5 mHertz probe. INDICATIONS: Dialysis [...] MD, RHONA - 01/04/2018 3:54 PM [facility] [place] [facility] Pt. Name/Age/: Estefani Tilley 72 y.o. 1945 Med. Record Number: [id number] Date of admission: 01/04/2018 Date of Operation/Procedure: [...] infiltrated in the anterior upper arm. The Lincoln tunnel er was passed subcutaneous in the anterior upper arm. The patient was heparinized (5000 uni ts). After a 3 minute circulation time the basilic vein was divided distally. The basilic vein was carefully passed through the Lincoln tunneler, keeping orientation correct. The vein was [...] by: Santos Stephenson MD, FACS, 01/04/2018 15:55 [facility] documented i n this encounter Plan [...] | | | | PDT | ([facility]) (N18.5) | | + +--------+ + + [...] + | [facility] | [address] | [place] | [phone] | | [facility] | | [address] | | | - LABORATORY | | [...] [address] | [place] | [phone] | | [facility] | | [address] | | | - LABORATORY | | [...] [address] | [place] | [phone] | | [facility] | | [address] | | | - LABORATORY | | [...] + | [facility] | [address] | [place] | [phone] | | [facility] | | [address] | | | - LABORATORY | | [...] mL/min/1.73m2 | [facility] | | | [place] | RATE,ESTIMATED | | MEDICAL | | | | mL/min/1.14c0Ikfv than | | CENTER - | | [...] ST. | [address] | [place] | [phone] | | [facility] | | [address] | | | - LABORATORY | | [...]
--- OUTSIDE RECORDS SUMMARY | ~2020-03-23 | XMS | Clinical Summary ---
Demographics + + + | Address | [address] | | | [place] [address] | + + + | Home Phone [...] Author | [facility] | | | and Kamaljitana | + + + | Organization | [facility] | | | and [place] | + + + | Address | Unknown | + + + | Phone | Unavailable | + + + Support + + + + + | Name | Relationship | Address | Phone | + + + + + | India Tilley | ECON | [address] | | | | | [place], [place] | | | | | [address] | | + + + + + [...] Team Providers + +------+ + | Care Spray Dry Operator Name | Role | Phone | [...] + + + + + | Overview: [id number]: GFR 0's-20's, now on dialysis | + [...] | mastectomy L Oct 19 with chemo [facility] | | | [...] | Encounter | | Haris Law, | ([facility]) (Primary Dx); | | | [...] | | | | | | dialysis ([facility]); | | | | | | Anemia due to | | | | | | chronic kidney | | | | | | disease, on chronic | | | | | | dialysis ([facility]); | | | | | | Hypervolemia, | | | | | | unspecified | | | | | | hypervolemia type; | | | | | | Essential | | | | | | hypertension; Anemia | | | | | | due to end stage | | | | | | renal disease ([facility]); | | | | | | Secondary | | | | | | hyperparathyroidism | | | | | | ([facility]); Cellulitis of | | | [...] mild | | | | | | ([facility]); Arthritis; | | | | | | History of blood | | | | | | clots; Cancer ([facility]); | | | [...] infarction | | | | | | ([facility]); Marijuana | | | | | | use; Chronic renal | | | | | | insufficiency, stage | | | | | | IV (severe) ([facility]); | | | | | | Non-compliance; | | | | | | probable Discitis of | | | | | | thoracic region; | | | | | | Osteomyelitis of | | | | | | thoracic region | | | | | | ([facility]); Pleural | | | | [...] | | | | | | dialysis ([facility]) | | | [...] | + + + + | INFLUENZA, V7A5-11, | 08/28/2009 | | | UNSPECIFIED | [...] | Right: | CATIA | | | [id number] | | 6.5x85mm - | | Hip | MEDICAL - | | | S / / | | [id number]: Qty: 2 | | | STRY | | | | | on 12/04/2018 by Ga, | | | | | | | | Scott John MD at [facility] | | | | | | | | [facility] | | | | | | | + +-------+--------+ +--------+--------+--------+ | Screw Asnis 3 Ti 20mm | Screw | Right: | CATIA | | | [id number] | | 6.5x90mm - | | Hip | MEDICAL - | | | S / / | | [id number]: Qty: 1 | | | STRY | | | | | on 12/04/2018 by Ga, | | | | | | | | Scott John MD at [facility] | | | | | | | | [facility] | | | | [...] [address] | [place] | [phone] | | [facility] | | [address] | | | - LABORATORY | | [...] | | | | | | The [facility] recommends that | | | | | | a positive HCV antibody | | | | | | result be followed up | | | | | | with a HCV Nucleic Acid | | | | | | Amplification test | | | | | | ([id number]). | | | | + + + + + + + + | Specimen | + + | Blood | + + + + + | Narrative | Performed At | + + + | Performed at: 01 - [facility] [place] [address] [address] [address], | REFERENCE LAB | | [place], [place] [id number] Typesetting Machine Tender: Ernie Lee MD, Phone: | [facility] | | [phone] | | + + + + + + + + | Performing | Address | City/State/Zipcode | Phone Number | | Organization | | | | + + + + + | REFERENCE LAB | [address] | [place], [place] | [phone] | | [facility] | [address] [place] | [address] | | + + + + + [...] + | Performed at: 01 - [facility] [place] [address], | REFERENCE LAB | | [place], [place] [id number] Typesetting Machine Tender: Ernie Lee MD, Phone: | [facility] | | [phone] | | + + + + + + + + | Performing | Address | City/State/Zipcode | Phone Number | | Organization | | | | + + + + + | REFERENCE LAB | [address] | [place], [place] | [phone] | | [facility] | [address] | [address] | | + + + + + [...] + + | Performed at: 01 - [facility] [address], | REFERENCE LAB | | [place], [place] [id number] Typesetting Machine Tender: Ernie Lee MD, Phone: | [facility] | | [phone] | | + + + + + + + + | Performing | Address | City/State/Zipcode | Phone Number | | Organization | | | | + + + + + | REFERENCE LAB | [address] | [place], [place] | [phone] | | [facility] | [facility] | [address] | | + + + + + [...] + | Performed at: 01 - [facility] [place] [address], | REFERENCE LAB | | [place], [place] [id number] Typesetting Machine Tender: Ernie Lee MD, Phone: | [facility] | | [phone] | | + + + + + + + + | Performing | Address | City/State/Zipcode | Phone Number | | Organization | | | | + + + + + | REFERENCE LAB | [address] | [place], [place] | [phone] | | [facility] | [facility] | [address] | | + + + + + [...] + | [facility] | [address] | [place] | [phone] | | [facility] | | [address] | | | - LABORATORY | | [...] [address] | [place] | [phone] | | [facility] | | [address] | | | - LABORATORY | | [...] + | [facility] | [address] | [place] | [phone] | | [facility] | | [address] | | | - LABORATORY | | [...] ST. | [address] | [place], [place] | [phone] | | [facility] | | [address] | | | - LABORATORY | | [...] not | 12 (L)Comment: | >=60 | [place] | | | | GLOMERULAR FILTRATION | mL/min/1.73m2 | [facility] | | | [place] | RATE,ESTIMATED | | MEDICAL | | | | mL/min/1.53b1Ubwb than | | CENTER - | | [...] | 8.9 | 8.7 - 10.4 | PROVIDEDCE | | | | | mg/dL | [facility] | | | | | | [...] [address] | [place] | [phone] | | [facility] | | [address] | | | - LABORATORY | | [...] [address] | [place] | [phone] | | [facility] | | [address] | | | - LABORATORY | | [...] [address] | [place] | [phone] | | [facility] | | [address] | | | - LABORATORY | | [...] [address] | [place] | [phone] | | [facility] | | [address] | | | - LABORATORY | | [...] | [facility] [facility] | [address] | [place] | [phone] | | [facility] | | [address] | | | - LABORATORY | | [...] + + + | See Scanned | [facility] | | Report | | + [...] | | | | | | [employer] | | | | | [...] ST. | [address] | [place] | [phone] | | [facility] | | [address] | | | - LABORATORY | | [...] + | [facility] | [address] | [place] | [phone] | | [facility] | | [address] | | | - LABORATORY | | [...] + | [facility] | [address] | [place] | [phone] | | [facility] | | [address] | | | - LABORATORY | | [...] in use as of | | [facility] | | | | November 09, [...] [address] | [place] | [phone] | | [facility] | | [address] | | | - [...] [address] | [place] | [phone] | | [facility] | | [address] | | | - LABORATORY | | [...] + | [facility] | [address] | [place] | [phone] | | [facility] | | [address] | | | - LABORATORY | | [...] | | | | mg/dL | [facility] | | | | | | MEDICAL | | | | | | CENTER - | | | | | | LABORATORY | | + + + + + + | eGFR if not | 9 (L)Comment: GLOMERULAR | >=60 | [facility] | | | | FILTRATION | mL/min/1.73m2 | [facility] | | | [place] | RATE,ESTIMATED | | MEDICAL | | | | mL/min/1.49n7Uzav than | | CENTER - | | [...] | 8.8 | 8.7 - 10.4 | [facility] | | | | | mg/dL | [facility] | | | | | | [...] | ine Ratio | | | [facility] | [...] + | [facility] | [address] | [place] | [phone] | | [facility] | | [address] | | | - LABORATORY | | [...] MD | | | | | | ([address]) on 01/19/2020 | | | | | [...] +--------+ +---------+--------+ | MEDICARE | MEDICA | [id number] | 04/13/20 | [phone] | | Medica | | | RE | | 11-Pre | 5 | | re | | | PART A | | sent | | | | | | AND B | | | | | | + +--------+ +--------+ +---------+--------+ | MEDICARE | MEDICA | [id number] | 04/13/20 | [phone] | | Medica | | | RE | | 11-Pre | 5 | | re | | | PART A | | sent | | | | | | AND B | | | | | | + +--------+ +--------+ +---------+--------+ | [facility] | IHS | [id number] | | | | Indemn | | SERVICE | YELLOW | | 019-Pr | | | ity | | | HAWK | | esent | | | | + +--------+ +--------+ +---------+--------+ | MEDICAID [place] | MEDICA | [id number] | 03/13/20 | [phone] | | Medica | | | ID [place] | | 17-Pre | 2 | | id | | | PLUS | | sent | | | | + +--------+ +--------+ +---------+--------+ | [facility] | IHS | [id number] | | | | Indemn | | [...] | 1945 | [id number] | [place] [address] | | | natali | | | 2 (Home) | | | | | | | [phone] | | | | | | | 0 (Work) | | + +--------+ +--------+ + + | Estefani Tilley | Person | Self | [birth year] | [address] | | | al/Fam | | 1945 | [phone] | [place] [address] | | | natali | | | 2 (Home) | | | | | | | [phone] | | | | | | | 0 (Work) | | + +--------+ +--------+ + + Advance Directives + + + + + | Type | Date Recorded | Patient | Explanation | | | | Felting Machine Operator | | + + + + + | Power of | | | | | Trust Officer | | | | + + + [...]
--- OUTSIDE RECORDS SUMMARY | ~2020-03-23 | XMS | Encounter Summary ---
Demographics + + + | Address | [address] | | | [place] [address] | + + + | Home Phone [...] Author | [facility] | | | and Kamaljitana | + + + | Organization | [facility] | | | and [place] | + + + | Address | Unknown | + + + | Phone | Unavailable | + + + Support + + + + + | Name | Relationship | Address | Phone | + + + + + | India Tilley | ECON | [address] | | | | | [place], [place] | | | | | [address] | | + + + + + [...] Providers + +------+ + | Care Car Shunter Name | Role | Phone | + +------+ + PCP | Unavailable | + +------+ + Encounter Details +--------+ + + + + | Date | Type | Department | Care Team | Description | +--------+ + + + + | 12/19/ | [facility] | [facility] | Patricia, | | | 2007 - | Encounter | [facility] | Venkatesh Forte MD [address] | | | | | CENTER [address] | [place] | | | 01/10/ | | [place] | [place] [address] | | | 2007 | | [address] | [phone] | | | | | [phone] | | | +--------+ + + + [...]
[~2020-03-23 18:14] MED LIST changes: +OXYCODONE HCL5 MG PO
--- OUTSIDE RECORDS SUMMARY | 2020-03-23 18:16 | XMS ---
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 Care History Medical/Surgical 09/11/2019 [facility] -PATIENT CURRENTLY RECEIVING DIALYSIS TREATMENT- 3 X A WEEK- WEDNESDAY, WEDNESDAY, WEDNESDAY. -DIALYSIS CLINIC IS OPEN ON WEDNESDAY. 07/28/2019 [facility] \T\middot;\T\nbsp; PATIENT- [facility] ELIGIBLE \T\middot;\T\nbsp; P[facility] EMERGENT [facility] NEEDS. \T\middot;\ T\nbsp; [facility] IF PATIENT CALLS FIRST THING IN THE MORNING. Mikala VISIT COUNT (12 MO.) [facility] 10 [facility] TOTAL 14 NOTE: Visits indicate total known visits. ED/UCC VISIT TRACKING (12 MO.) 03/23/2020 18:14 [facility] [place] TYPE: Emergency COMPLAINT: - HIP PAIN 03/21/2020 14:01 [facility] [place] TYPE: Emergency COMPLAINT: - RT HIP PAIN 01/18/2020 15:03 [facility] [place] TYPE: Emergency DIAGNOSES: - Dependence on renal dialysis - Acute embolism and thrombosis of unspecified vein - Problem related to unspecified psychosocial circumstances - End stage renal disease - Localized edema - leg pain - Hypoxemia 10[facility]30[facility]2019 [facility] DIAGNOSES: - SOB - Heart failure, unspecified - Pleural effusion, not elsewhere classified - Shortness of Breath - Chest Pain - Other specified abnormal findings of blood chemistry 09/18/2019 13:50 [facility] [place] TYPE: Emergency DIAGNOSES: - Dependence on renal dialysis - Localized edema - End stage renal disease - Type 2 diabetes mellitus with diabetic chronic kidney disease - Chronic kidney disease, stage 4 (severe) - Dependence on renal dialysis - Hypothyroidism, unspecified - manager intermediate (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 - Shortness of [...] Allergy status to analgesic agent status - nursing home (current) use of aspirin - Atherosclerotic heart disease of [place] coronary artery witho - Type 2 diabetes mellitus with diabetic chronic kidney disease - Other specified soft tissue disorders - Hypertensive chronic kidney disease with stage 1 through stag - Personal history of nicotine dependence - Other fdc (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 08/24/2019 16:39 [facility] [place] TYPE: Emergency COMPLAINT: - COUGH, N/V, DIARRHEA DIAGNOSES: - Hypothyroidism, unspecified - Major depressive disorder, single episode, unspecified - 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 - Type 2 diabetes mellitus with diabetic chronic kidney disease - Viral infection, unspecified - Other terminal operations manager (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 - Type 2 diabetes [...] diabetic neuropathy, unspecifie - Hypothyroidism, unspecified - manager intermediate (current) use of aspirin - Major depressive disorder, single episode, unspecified - Essential (primary) hypertension - Pleural effusion, not elsewhere classified - Atherosclerotic heart disease of [place] coronary artery witho - Other terminal operations manager (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 [...] status to other anti-infective agents status - nursing home (current) use of aspirin - Type 2 diabetes mellitus with diabetic cataract - Hypertensive heart and chronic kidney disease with heart fail - Other fdc (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 - Type 2 diabetes mellitus with diabetic neuropathy, unspecifie - Heart failure, unspecified 05/01/2019 08:41 [facility] [place] TYPE: Emergency COMPLAINT: - HIGH BP DIAGNOSES: - nursing home (current) use of aspirin - Essential (primary) [...] diabetes mellitus with diabetic cataract - Other fdc (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 - Allergy status to analgesic agent status 04/27/2019 02:37 [facility] [place] TYPE: Emergency COMPLAINT: - MULTIPLE COMPLAINT DIAGNOSES: - Unspecified injury of head, initial encounter - nursing home (current) use of aspirin - Hypothyroidism, unspecified [...] loss of consciousness, initial encounter - Other fdc (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 - Fall on same [...] malignant neoplasm of breast - Other terminal operations manager (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 - Type 2 diabetes [...] transient ischemic attack (TIA), and cere - nursing home (current) use of aspirin - End stage renal disease - Major depressive disorder, single episode, unspecified 04/03/2019 14:36 [facility] [place] TYPE: Emergency COMPLAINT: - WEAKNESS DIAGNOSES: - Hypothyroidism, unspecified - Allergy status to analgesic agent status - Other terminal operations manager (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 - Allergy status to other drugs, medicaments and biological sub - Essential (primary) hypertension - nursing home (current) use of aspirin - Type 2 diabetes mellitus with diabetic neuropathy, unspecifie - Weakness - Type 2 diabetes mellitus with diabetic cataract - Personal history of transient ischemic attack (TIA), and cere - Personal history of malignant neoplasm of breast 03/23/2019 17:03 [facility] [place] [facility] Emergency DIAGNOSES: - Pain in thoracic spine - Osteomyelitis, unspecified - back pain - Rib Pain - Discitis, unspecified, site unspecified INPATIENT VISIT TRACKING (12 MO.) 01/18/2020 15:03 [facility] [place] TYPE: Medical Surgical DIAGNOSES: - Patient's noncompliance [...] Secondary hyperparathyroidism of renal origin 10/31/2019 02:13 [facility] [place] TYPE: Medical Surgical DIAGNOSES: 0. Pyothorax [...] disease 15. Dependence on renal dialysis 16. manager intermediate (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 17. Homelessness 18. Atherosclerotic heart disease of [place] coronary artery witho 19. Personal history of [...] tissue damage of sacral region 09/18/2019 13:50 [facility]: Medical Surgical DIAGNOSES: - Type 2 diabetes mellitus with diabetic chronic kidney disease - Pleural effusion, not elsewhere classified - Dependence on renal dialysis - manager intermediate (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 - End stage renal disease - Acute combined systolic (congestive) and diastolic (congestiv - Fluid overload, unspecified - Localized edema - Dyspnea, unspecified - Hypothyroidism, unspecified - End stage renal disease - Chronic kidney disease, stage 4 (severe) - Dependence on renal dialysis 06/20/2019 05:00 [facility] TYPE: Cardiology DIAGNOSES: - Hyperkalemia - Hyperkalemia - Other fluid overload 05/20/2019 20:16 [facility] DIAGNOSES: - Osteomyelitis of vertebra, thoracic region - Left ventricular failure, unspecified - End stage renal disease - Dependence on renal dialysis - Hypoxemia - CHF - Type 2 diabetes mellitus with diabetic chronic kidney disease - Anemia in chronic kidney disease - Chronic kidney disease, stage 4 (severe) - Essential (primary) hypertension - Hypertensive urgency - manager intermediate (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 03/24/2019 00:55 [facility] TYPE: Nephrology DIAGNOSES: - Dependence on renal dialysis - End stage renal disease - Essential (primary) hypertension - Osteomyelitis, unspecified - Type 2 diabetes mellitus with diabetic chronic kidney disease - nursing home (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 - Chronic kidney disease, stage 4 (severe) - Secondary multiple arthritis - Discitis, unspecified, thoracic region [email or web address]
== END 2020-03-23 22:11 | disposition short-term general hospital (02) ==
LOC: ED 18:14
DX: S32.9XXD Fracture of unspecified parts of lumbosacral spine and pelvis, subsequent encounter for fracture with routine healing (principal); E11.9 Type 2 diabetes mellitus without complications; F32.9 Major depressive disorder, single episode, unspecified; E03.9 Hypothyroidism, unspecified; E11.40 Type 2 diabetes mellitus with diabetic neuropathy, unspecified; I25.10 Atherosclerotic heart disease of native coronary artery without angina pectoris; I10 Essential (primary) hypertension; Z88.8 Allergy status to other drugs, medicaments and biological substances; Z88.6 Allergy status to analgesic agent; Z79.899 Other long term (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; Z79.82 Long term (current) use of aspirin
CPT/HCPCS: 80053; 85025; 96374; 99285-25; J1170